=== PATIENT | female | born 1955 | race Caucasian/White ===

== ENCOUNTER 2022-09-13 06:55 | Outpatient (OUT) | payer MEDICARE, SELFPAY ==
[2022-09-13 07:42] LABS: Phosphorus 3.3 mg/dL (2.6-4.7); Uric Acid 5.7 mg/dL (2.6-6.0)
[2022-09-13 09:46] LABS: Estimated Average Glucose 105 mg/dL; Glycohemoglobin A1C 5.3 % (4.5-6.2)
[2022-09-16 12:10] LABS: BKV DNA, Quant PCR, Plasma Negative (Negative)
[2022-09-17 04:07] LABS: Tacrolimus (FK506), Blood 4.3 ng/mL (2.0-20.0)
== END 2022-09-13 06:56 ==
LOC: LAB 07:01
PROVIDERS: PCP Internal Medicine; Visit Provider Internal Medicine Nephrology
DX: Z94.0 Kidney transplant status (principal)
CPT/HCPCS: 36415; 80197; 83036; 84100; 84550; 87799

== ENCOUNTER 2022-10-09 06:40 | Outpatient (OUT) | payer MEDICARE, SELFPAY ==
[2022-10-09 07:08] LABS: Basophils Percent Auto 0.1 % (0.2-2.0); Eosinophils Absolute Auto 0.1 10^3/uL (0.0-0.7); Eosinophils Percent Auto 1.1 % (0.9-7.0); Hematocrit 47.3 % (36.0-48.0); Hemoglobin 15.6 g/dL (12.0-16.0); Immature Granulocytes Abs Auto 0.04 10^3/uL (0.00-0.03); Immature Granulocytes Pct Auto 0.5 % (0.0-0.5); Lymphocytes Absolute Auto 1.1 10^3/uL (1.2-3.8); Lymphocytes Percent Auto 12.5 % (20.5-60.0); Mean Corpuscular Volume 93.8 fL (81.0-99.0); Monocytes Absolute Auto 1.1 10^3/uL (0.3-0.8); Monocytes Percent Auto 12.8 % (1.7-12.0); Neutrophils Absolute Auto 6.1 10^3/uL (1.4-6.5); Platelet Count 214 10^3/uL (150-450); Red Blood Count 5.04 10^6/uL (4.20-5.40); Red Cell Distribution Width 14.8 % (11.0-15.0); White Blood Count 8.4 10^3/uL (4.0-11.0)
[2022-10-09 07:18] LABS: Alanine Aminotransferase 21 U/L (14-59); Albumin Globulin Ratio 1.1; Albumin Level 3.8 g/dL (3.4-5.0); Alkaline Phosphatase 143 U/L (46-116); Aspartate Amino Transferase 11 U/L (15-37); BUN Creatinine Ratio 14.9; Bilirubin Direct 0.1 mg/dL (0.0-0.2); Bilirubin Total 0.8 mg/dL (0.2-1.0); Calcium 9.5 mg/dL (8.5-10.1); Carbon Dioxide 28.3 mmol/L (21.0-32.0); Chloride 105 mmol/L (98-107); Estimated GFR (African America >60 (>=60); Estimated GFR (Non-African Ame 60 (>=60); Globulin 3.5 g/dL; Glucose 105 mg/dL (74-106); Phosphorus 3.3 mg/dL (2.6-4.7); Potassium 4.3 mmol/L (3.5-5.1); Sodium 141 mmol/L (136-145); Total Protein 7.3 g/dL (6.4-8.2)
== END 2022-10-09 06:41 | disposition home or self-care (01) ==
LOC: LAB 06:43
PROVIDERS: PCP Internal Medicine
DX: Z48.298 Encounter for aftercare following other organ transplant (principal); Z94.0 Kidney transplant status
CPT/HCPCS: 36415; 80053; 80076; 83735; 84100; 85025

== ENCOUNTER 2022-11-06 06:39 | Outpatient (OUT) | payer MEDICARE, SELFPAY ==
[2022-11-06 07:06] LABS: Basophils Percent Auto 0.3 % (0.2-2.0); Eosinophils Absolute Auto 0.1 10^3/uL (0.0-0.7); Immature Granulocytes Abs Auto 0.01 10^3/uL (0.00-0.03); Immature Granulocytes Pct Auto 0.1 % (0.0-0.5); Lymphocytes Absolute Auto 1.2 10^3/uL (1.2-3.8); Lymphocytes Percent Auto 16.2 % (20.5-60.0); Mean Corpuscular HGB Conc 32.6 g/dL (29.9-35.2); Mean Corpuscular Hemoglobin 30.6 pg (26.7-34.0); Mean Corpuscular Volume 93.9 fL (81.0-99.0); Mean Platelet Volume 11.4 fL (9.5-13.5); Monocytes Absolute Auto 0.9 10^3/uL (0.3-0.8); Monocytes Percent Auto 12.3 % (1.7-12.0); Neutrophils Absolute Auto 4.9 10^3/uL (1.4-6.5); Neutrophils Percent Auto 69.1 % (43.0-75.0); Platelet Count 182 10^3/uL (150-450); Red Cell Distribution Width 14.3 % (11.0-15.0); White Blood Count 7.2 10^3/uL (4.0-11.0)
[2022-11-06 07:27] LABS: Alanine Aminotransferase 17 U/L (14-59); Albumin Globulin Ratio 1.1; Albumin Level 3.7 g/dL (3.4-5.0); Alkaline Phosphatase 138 U/L (46-116); Anion Gap 11.5; Aspartate Amino Transferase 12 U/L (15-37); BUN Creatinine Ratio 17.4; Bilirubin Direct 0.2 mg/dL (0.0-0.2); Bilirubin Total 0.7 mg/dL (0.2-1.0); Calcium 9.3 mg/dL (8.5-10.1); Carbon Dioxide 27.5 mmol/L (21.0-32.0); Chloride 105 mmol/L (98-107); Estimated GFR (African America >60 (>=60); Estimated GFR (Non-African Ame >60 (>=60); Globulin 3.5 g/dL; Glucose 99 mg/dL (74-106); Phosphorus 3.6 mg/dL (2.6-4.7); Sodium 140 mmol/L (136-145); Total Protein 7.2 g/dL (6.4-8.2)
== END 2022-11-06 06:40 | disposition home or self-care (01) ==
LOC: LAB 06:43
PROVIDERS: PCP Internal Medicine; Visit Provider Internal Medicine Nephrology
DX: Z94.0 Kidney transplant status (principal)
CPT/HCPCS: 36415; 80053; 80076; 83735; 84100; 85025

== ENCOUNTER 2022-12-13 06:38 | Outpatient (OUT) | payer MEDICARE, SELFPAY ==
[2022-12-13 07:20] LABS: Basophils Percent Auto 0.3 % (0.2-2.0); Eosinophils Absolute Auto 0.2 10^3/uL (0.0-0.7); Eosinophils Percent Auto 2.6 % (0.9-7.0); Hematocrit 46.2 % (36.0-48.0); Hemoglobin 14.7 g/dL (12.0-16.0); Immature Granulocytes Abs Auto 0.01 10^3/uL (0.00-0.03); Immature Granulocytes Pct Auto 0.2 % (0.0-0.5); Lymphocytes Absolute Auto 1.5 10^3/uL (1.2-3.8); Lymphocytes Percent Auto 22.5 % (20.5-60.0); Mean Corpuscular HGB Conc 31.8 g/dL (29.9-35.2); Mean Corpuscular Hemoglobin 30.8 pg (26.7-34.0); Mean Corpuscular Volume 96.9 fL (81.0-99.0); Mean Platelet Volume 11.6 fL (9.5-13.5); Monocytes Absolute Auto 0.8 10^3/uL (0.3-0.8); Monocytes Percent Auto 11.4 % (1.7-12.0); Neutrophils Absolute Auto 4.1 10^3/uL (1.4-6.5); Platelet Count 200 10^3/uL (150-450); Red Blood Count 4.77 10^6/uL (4.20-5.40); Red Cell Distribution Width 14.4 % (11.0-15.0); White Blood Count 6.6 10^3/uL (4.0-11.0)
[2022-12-13 08:21] LABS: Estimated Average Glucose 108 mg/dL; Glycohemoglobin A1C 5.4 % (4.5-6.2)
[2022-12-13 09:02] LABS: Alanine Aminotransferase 19 U/L (14-59); Albumin Globulin Ratio 1.1; Albumin Level 3.7 g/dL (3.4-5.0); Alkaline Phosphatase 117 U/L (46-116); Anion Gap 11.9; Aspartate Amino Transferase <5 U/L (15-37); BUN Creatinine Ratio 24.5; Bilirubin Direct 0.1 mg/dL (0.0-0.2); Bilirubin Total 0.5 mg/dL (0.2-1.0); Calcium 9.2 mg/dL (8.5-10.1); Carbon Dioxide 27.8 mmol/L (21.0-32.0); Chloride 106 mmol/L (98-107); Chol HDL Ratio 2.5; Cholesterol 130 mg/dL (<=200); Estimated GFR (African America >60 (>=60); Estimated GFR (Non-African Ame 60 (>=60); Globulin 3.4 g/dL; Glucose 90 mg/dL (74-106); HDL Cholesterol 51 mg/dL (40-60); LDL Cholesterol Calculated 62.8 mg/dL; Magnesium 1.7 mg/dL (1.8-2.4); Phosphorus 3.9 mg/dL (2.6-4.7); Potassium 3.7 mmol/L (3.5-5.1); Sodium 142 mmol/L (136-145); Total Protein 7.1 g/dL (6.4-8.2); Triglycerides 81 mg/dL (<=150); Uric Acid 5.3 mg/dL (2.6-6.0); VLDL CHOLESTEROL 16.2 mg/dL
[2022-12-16 11:09] LABS: Tacrolimus (FK506), Blood 3.8 ng/mL (2.0-20.0)
== END 2022-12-13 06:39 | disposition home or self-care (01) ==
LOC: LAB 06:42
PROVIDERS: PCP Internal Medicine
DX: Z48.298 Encounter for aftercare following other organ transplant (principal); Z94.0 Kidney transplant status; Z79.899 Other long term (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 therapy
CPT/HCPCS: 36415; 80053; 80061; 80076; 80197; 83036; 83735; 84100; 84550; 85025; 87799

== ENCOUNTER 2022-12-18 06:41 | Outpatient (OUT) | payer MEDICARE, SELFPAY ==
[2022-12-20 16:08] LABS: BKV DNA, Quant PCR, Plasma Negative (Negative)
== END 2022-12-18 06:42 | disposition home or self-care (01) ==
LOC: LAB 06:41
PROVIDERS: PCP Internal Medicine
DX: Z48.298 Encounter for aftercare following other organ transplant (principal); Z94.0 Kidney transplant status; Z79.899 Other long term (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 therapy
CPT/HCPCS: 36415; 87799

== ENCOUNTER 2023-01-13 06:43 | Outpatient (OUT) | payer MEDICARE, SELFPAY ==
[2023-01-13 06:59] LABS: Basophils Percent Auto 0.3 % (0.2-2.0); Eosinophils Absolute Auto 0.3 10^3/uL (0.0-0.7); Hematocrit 42.5 % (36.0-48.0); Hemoglobin 13.9 g/dL (12.0-16.0); Immature Granulocytes Abs Auto 0.02 10^3/uL (0.00-0.03); Immature Granulocytes Pct Auto 0.3 % (0.0-0.5); Lymphocytes Absolute Auto 1.3 10^3/uL (1.2-3.8); Lymphocytes Percent Auto 19.8 % (20.5-60.0); Mean Corpuscular HGB Conc 32.7 g/dL (29.9-35.2); Mean Corpuscular Volume 94.9 fL (81.0-99.0); Mean Platelet Volume 11.4 fL (9.5-13.5); Monocytes Absolute Auto 0.9 10^3/uL (0.3-0.8); Monocytes Percent Auto 14.2 % (1.7-12.0); Neutrophils Absolute Auto 3.9 10^3/uL (1.4-6.5); Neutrophils Percent Auto 61.4 % (43.0-75.0); Platelet Count 189 10^3/uL (150-450); Red Blood Count 4.48 10^6/uL (4.20-5.40); Red Cell Distribution Width 14.4 % (11.0-15.0); White Blood Count 6.3 10^3/uL (4.0-11.0)
[2023-01-13 07:59] LABS: Estimated Average Glucose 108 mg/dL; Glycohemoglobin A1C 5.4 % (4.5-6.2)
[2023-01-13 08:48] LABS: Alanine Aminotransferase 24 U/L (14-59); Albumin Globulin Ratio 1.1; Albumin Level 3.6 g/dL (3.4-5.0); Alkaline Phosphatase 140 U/L (46-116); Anion Gap 11.9; Aspartate Amino Transferase 16 U/L (15-37); BUN Creatinine Ratio 26.8; Bilirubin Direct 0.1 mg/dL (0.0-0.2); Bilirubin Total 0.4 mg/dL (0.2-1.0); Calcium 9.5 mg/dL (8.5-10.1); Carbon Dioxide 28.9 mmol/L (21.0-32.0); Chloride 105 mmol/L (98-107); Chol HDL Ratio 2.7; Cholesterol 138 mg/dL (<=200); Estimated GFR (African America >60 (>=60); Estimated GFR (Non-African Ame >60 (>=60); Globulin 3.3 g/dL; Glucose 87 mg/dL (74-106); HDL Cholesterol 52 mg/dL (40-60); LDL Cholesterol Calculated 68.2 mg/dL; Magnesium 1.8 mg/dL (1.8-2.4); Phosphorus 3.7 mg/dL (2.6-4.7); Potassium 3.8 mmol/L (3.5-5.1); Sodium 142 mmol/L (136-145); Total Protein 6.9 g/dL (6.4-8.2); Triglycerides 89 mg/dL (<=150); Uric Acid 4.8 mg/dL (2.6-6.0); VLDL CHOLESTEROL 17.8 mg/dL
[2023-01-15 07:08] LABS: Tacrolimus (FK506), Blood 3.6 ng/mL (2.0-20.0)
[2023-01-15 16:11] LABS: BKV DNA, Quant PCR, Plasma Negative (Negative)
== END 2023-01-13 06:44 | disposition home or self-care (01) ==
LOC: LAB 06:45
PROVIDERS: PCP Internal Medicine
DX: Z48.298 Encounter for aftercare following other organ transplant (principal); Z79.899 Other long term (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 therapy; Z94.0 Kidney transplant status
CPT/HCPCS: 36415; 80053; 80061; 80076; 80197; 83036; 83735; 84100; 84550; 85025; 87799

== ENCOUNTER 2023-02-07 06:37 | Outpatient (OUT) | payer MEDICARE, SELFPAY ==
[2023-02-07 07:28] LABS: Basophils Percent Auto 0.1 % (0.2-2.0); Eosinophils Absolute Auto 0.1 10^3/uL (0.0-0.7); Eosinophils Percent Auto 1.6 % (0.9-7.0); Hematocrit 44.7 % (36.0-48.0); Hemoglobin 14.1 g/dL (12.0-16.0); Immature Granulocytes Abs Auto 0.01 10^3/uL (0.00-0.03); Immature Granulocytes Pct Auto 0.1 % (0.0-0.5); Lymphocytes Absolute Auto 1.1 10^3/uL (1.2-3.8); Lymphocytes Percent Auto 14.1 % (20.5-60.0); Mean Corpuscular HGB Conc 31.5 g/dL (29.9-35.2); Mean Corpuscular Hemoglobin 30.3 pg (26.7-34.0); Mean Corpuscular Volume 96.1 fL (81.0-99.0); Mean Platelet Volume 11.8 fL (9.5-13.5); Monocytes Absolute Auto 0.8 10^3/uL (0.3-0.8); Monocytes Percent Auto 9.9 % (1.7-12.0); Neutrophils Absolute Auto 5.9 10^3/uL (1.4-6.5); Neutrophils Percent Auto 74.2 % (43.0-75.0); Platelet Count 207 10^3/uL (150-450); Red Blood Count 4.65 10^6/uL (4.20-5.40); Red Cell Distribution Width 14.5 % (11.0-15.0)
[2023-02-07 09:22] LABS: Estimated Average Glucose 105 mg/dL; Glycohemoglobin A1C 5.3 % (4.5-6.2)
[2023-02-07 09:24] LABS: Alanine Aminotransferase 10 U/L (14-59); Albumin Level 3.8 g/dL (3.4-5.0); Alkaline Phosphatase 140 U/L (46-116); Anion Gap 9.1; Aspartate Amino Transferase 7 U/L (15-37); BUN Creatinine Ratio 18.9; Bilirubin Direct 0.1 mg/dL (0.0-0.2); Bilirubin Total 0.7 mg/dL (0.2-1.0); Calcium 9.5 mg/dL (8.5-10.1); Carbon Dioxide 28.8 mmol/L (21.0-32.0); Chloride 103 mmol/L (98-107); Estimated GFR (African America >60 (>=60); Estimated GFR (Non-African Ame 59 (>=60); Glucose 93 mg/dL (74-106); Magnesium 1.8 mg/dL (1.8-2.4); Phosphorus 3.4 mg/dL (2.6-4.7); Potassium 3.9 mmol/L (3.5-5.1); Sodium 137 mmol/L (136-145); Total Protein 7.2 g/dL (6.4-8.2); Uric Acid 5.3 mg/dL (2.6-6.0)
[2023-02-07 09:25] LABS: Albumin Globulin Ratio 1.1; Chol HDL Ratio 2.3; Cholesterol 129 mg/dL (<=200); Globulin 3.4 g/dL; HDL Cholesterol 56 mg/dL (40-60); Triglycerides 60 mg/dL (<=150)
[2023-02-10 11:08] LABS: BKV DNA, Quant PCR, Plasma Negative (Negative)
[2023-02-10 14:08] LABS: Tacrolimus (FK506), Blood 4.3 ng/mL (2.0-20.0)
== END 2023-02-07 06:38 | disposition home or self-care (01) ==
LOC: LAB 06:40
PROVIDERS: PCP Internal Medicine
DX: Z48.298 Encounter for aftercare following other organ transplant (principal); Z94.0 Kidney transplant status; Z79.899 Other long term (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 therapy
CPT/HCPCS: 36415; 80053; 80061; 80076; 80197; 83036; 83735; 84100; 84550; 85025; 87799

== ENCOUNTER 2023-03-12 06:36 | Outpatient (OUT) | payer MEDICARE, SELFPAY ==
[2023-03-12 07:29] LABS: Basophils Percent Auto 0.2 % (0.2-2.0); Eosinophils Absolute Auto 0.1 10^3/uL (0.0-0.7); Eosinophils Percent Auto 2.2 % (0.9-7.0); Hematocrit 45.2 % (36.0-48.0); Hemoglobin 14.4 g/dL (12.0-16.0); Immature Granulocytes Abs Auto 0.02 10^3/uL (0.00-0.03); Immature Granulocytes Pct Auto 0.4 % (0.0-0.5); Lymphocytes Percent Auto 17.5 % (20.5-60.0); Mean Corpuscular HGB Conc 31.9 g/dL (29.9-35.2); Mean Corpuscular Hemoglobin 30.8 pg (26.7-34.0); Mean Corpuscular Volume 96.8 fL (81.0-99.0); Mean Platelet Volume 10.9 fL (9.5-13.5); Monocytes Absolute Auto 0.6 10^3/uL (0.3-0.8); Monocytes Percent Auto 11.4 % (1.7-12.0); Neutrophils Absolute Auto 3.8 10^3/uL (1.4-6.5); Neutrophils Percent Auto 68.3 % (43.0-75.0); Platelet Count 286 10^3/uL (150-450); Red Blood Count 4.67 10^6/uL (4.20-5.40); Red Cell Distribution Width 15.4 % (11.0-15.0); White Blood Count 5.5 10^3/uL (4.0-11.0)
[2023-03-12 09:02] LABS: Alanine Aminotransferase 19 U/L (14-59); Albumin Level 3.6 g/dL (3.4-5.0); Alkaline Phosphatase 136 U/L (46-116); Anion Gap 14.4; Aspartate Amino Transferase 13 U/L (15-37); BUN Creatinine Ratio 20.9; Bilirubin Direct 0.1 mg/dL (0.0-0.2); Bilirubin Total 0.6 mg/dL (0.2-1.0); Calcium 9.1 mg/dL (8.5-10.1); Carbon Dioxide 28.8 mmol/L (21.0-32.0); Chloride 104 mmol/L (98-107); Chol HDL Ratio 2.5; Cholesterol 126 mg/dL (<=200); Estimated GFR (African America >60 (>=60); Estimated GFR (Non-African Ame >60 (>=60); Globulin 3.5 g/dL; Glucose 90 mg/dL (74-106); HDL Cholesterol 51 mg/dL (40-60); Magnesium 1.9 mg/dL (1.8-2.4); Phosphorus 3.5 mg/dL (2.6-4.7); Potassium 4.2 mmol/L (3.5-5.1); Sodium 143 mmol/L (136-145); Total Protein 7.1 g/dL (6.4-8.2); Triglycerides 95 mg/dL (<=150); Uric Acid 4.7 mg/dL (2.6-6.0)
[2023-03-12 10:12] LABS: Estimated Average Glucose 117 mg/dL; Glycohemoglobin A1C 5.7 % (4.5-6.2)
[2023-03-14 12:10] LABS: BKV DNA, Quant PCR, Plasma Negative (Negative)
[2023-03-16 09:12] LABS: Tacrolimus (FK506), Blood 4.3 ng/mL (2.0-20.0)
== END 2023-03-12 06:37 | disposition home or self-care (01) ==
LOC: LAB 06:40
PROVIDERS: PCP Internal Medicine
DX: Z48.298 Encounter for aftercare following other organ transplant (principal); Z79.899 Other long term (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 therapy; Z94.0 Kidney transplant status
CPT/HCPCS: 36415; 80053; 80061; 80197; 82248; 83036; 83735; 84100; 84550; 85025; 87799

== ENCOUNTER 2023-04-21 06:38 | Outpatient (OUT) | payer MEDICARE, SELFPAY ==
--- OUTSIDE RECORDS SUMMARY | 2023-04-21 06:43 | XMS_ITS | CCD ---
Author Name Unknown Address [id number] [place] [address] Organization [facility] Care Team Providers Care Sales Representative [employer] Name Role Phone LA JOLLA DINKAR Unavailable Unavailable LA JOLLA, DINKAR Unavailable Unavailable CARROLL, RAMON Unavailable Unavailable CARROLL, RAMON Unavailable Unavailable RATNAM, ROSALINDA Unavailable Unavailable RATNAM, ROSALINDA Unavailable Unavailable SELF, REFERRED Unavailable Unavailable CARROLL, RAMON Unavailable Unavailable RATNAM, ROSALINDA Unavailable Unavailable RATNAM, ROSALINDA Unavailable Unavailable CARROLL, RAMON Unavailable Unavailable CARROLL, RAMON Unavailable Unavailable RATNAM, ROSALINDA Unavailable Unavailable RATNAM, ROSALINDA Unavailable Unavailable CARROLL, RAMON Unavailable Unavailable CARROLL, RAMON Unavailable Unavailable RATNAM, ROSALINDA Unavailable Unavailable RATNAM, ROSALINDA Unavailable Unavailable CARROLL, RAMON Unavailable Unavailable CARROLL, RAMON Unavailable Unavailable RATNAM, ROSALINDA Unavailable Unavailable RATNAM, ROSALINDA Unavailable Unavailable CARROLL, RAMON Unavailable Unavailable CARROLL, RAMON Unavailable Unavailable RATNAM, ROSALINDA Unavailable Unavailable RATNAM, ROSALINDA Unavailable Unavailable RATNAM, ROSALINDA Unavailable Unavailable CARROLL, RAMON Unavailable Unavailable RATNAM, ROSALINDA Unavailable Unavailable RATNAM, ROSALINDA Unavailable Unavailable CARROLL, RAMON Unavailable Unavailable CARROLL, RAMON Unavailable Unavailable RATNAM, ROSALINDA Unavailable Unavailable RATNAM, ROSALINDA Unavailable Unavailable RATNAM, ROSALINDA Unavailable Unavailable CARROLL, RAMON Unavailable Unavailable RATNAM, ROSALINDA Unavailable Unavailable RATNAM, ROSALINDA Unavailable Unavailable CARROLL, RAMON Unavailable Unavailable CARROLL, RAMON Unavailable Unavailable RATNAM, ROSALINDA Unavailable Unavailable RATNAM, ROSALINDA Unavailable Unavailable RATNAM, ROSALINDA Unavailable Unavailable CARROLL, RAMON Unavailable Unavailable VIRGLI HAYNES Unavailable Unavailable VIRGIL HAYNES Unavailable Unavailable VIRGIL HAYNES Unavailable Unavailable CARROLL, RAMON Unavailable Unavailable Martha Guevara Unavailable Cathy Bella Unavailable JENIFFER, DR VIRGIL Palma Consulting Unavailable NADERERadha, DR VIRIGL Palma Attending Unavailable CARROLL, DR DARBY Primary Care Unavailable NADERER, DR VIRGIL Palma Admitting Unavailable MARY, VITO Consulting Unavailable WARD, JOSE F Townsend Consulting Unavailable ROWENA ., ISATU Consulting Unavailable MIESHA, MAYRA Consulting Unavailable ROWENA ., ISATU Attending Unavailable ROWENA ., ISATU Admitting Unavailable CARROLL, DR DARBY Primary Care Unavailable ZIEBER, DR BRITTON Garcia Consulting Unavailable ITA ., HYACINTH Consulting Unavailable ROWENA ., ISATU Consulting Unavailable CARROLL, DR DARBY Admitting Unavailable CARROLL, DR DARBY Primary Care Unavailable CARROLL, DR DARBY Consulting Unavailable CARROLL, DR DARBY Attending Unavailable ZIEBER, DR BRITTON Garcia Consulting Unavailable CARROLL, DR DARBY Primary Care Unavailable MISC, DR OBRIEN Consulting Unavailable MISC, DR OBRIEN Attending Unavailable MISC, DR OBRIEN Admitting Unavailable LA JOLLA, DR CONNORS Consulting Unavailable CARROLL, DR DARBY Primary Care Unavailable MISC, DR OBRIEN Attending Unavailable MISC, DR OBRIEN Admitting Unavailable MISC, DR OBRIEN Attending Unavailable MISC, DR OBRIEN Admitting Unavailable MISC, DR OBRIEN Consulting Unavailable CARROLL, DR DARBY Primary Care Unavailable LA JOLLA, DR CONNORS Consulting Unavailable LA JOLLA, DR CONNORS Attending Unavailable CARROLL, DR DARBY Primary Care Unavailable LA JOLLA, DR CONNORS Admitting Unavailable LA JOLLA, DR CONNORS Attending Unavailable CARROLL, DR DARBY Primary Care Unavailable LA JOLLA, DR CONNORS Admitting Unavailable LA JOLLA, DR CONNORS Consulting Unavailable MISC, DR OBRIEN Attending Unavailable MISC, DR OBRIEN Admitting Unavailable CARROLL, DR DARBY Primary Care Unavailable MISC, DR OBRIEN Consulting Unavailable MISC, DR OBRIEN Consulting Unavailable MISC, DOCTOR Attending Unavailable MISC, DR OBRIEN Admitting Unavailable CARROLL, DR DARBY Primary Care Unavailable MISC, DR OBRIEN Attending Unavailable MISC, DR OBRIEN Admitting Unavailable MISC, DR OBRIEN Consulting Unavailable CARROLL, DR DARBY Primary Care Unavailable MISC, DR OBRIEN Attending Unavailable MISC, DR OBRIEN Admitting Unavailable MISC, DR OBRIEN Consulting Unavailable CARROLL, DR DARBY Primary Care Unavailable LA JOLLA, DR CONNORS Consulting Unavailable LA JOLLA, DR CONNORS Attending Unavailable CARROLL, DR DARBY Primary Care Unavailable LA JOLLA, DR CONNORS Admitting Unavailable MISC, DR OBRIEN Attending Unavailable MISC, DR OBRIEN Admitting Unavailable MISC, DR OBRIEN Consulting Unavailable CARROLL, DR DARBY Primary Care Unavailable MISC, DR OBRIEN Attending Unavailable [facility] [place], DR OBRIEN Admitting Unavailable [facility] [place], DR OBRIEN Consulting Unavailable UZMA, DR DARBY Primary Care Unavailable LA JOLLA, DR CONNORS Consulting Unavailable LA JOLLA, DR CONNORS Attending Unavailable LA JOLLA, DR CONNORS Admitting Unavailable UZMA, DR DARBY Primary Care Unavailable VIRGIL HAYNES Attending Unavailable MIKE, VIRGIL Attending Unavailable VIRGIL HAYNES Attending Unavailable RAMON CARROLL Attending Unavailable JOHN PADILLA Attending Unavailable JOHN PADILLA Attending Unavailable Medications Current Medications Medication Drug Class(es) Dates Sig (Normalized) Sig (Original) [id number] 200 actuat albuterol 0.09 mg/actuat metered dose inhaler (1 source) beta2-Adrenergic Agonist Start: 12-28-2021 take 2 puff(s) by inhalation four times daily as needed Albuterol Sulfate HFA 108 (90 Base) MCG/ACT 2 puffs Inhalation 4 times a day prn 30 Nov, 2021 Active amLODIPine (9 sources) Dihydropyridine Calcium Channel Eleonora amLODIPine Besyl ate Active Calcium (8 sources) Phosphate Binder, Calcium Calcium 600 600 MG Orally once a day for 30 day(s) Active calcium carbonate 1500 mg oral tablet (1 source) Calcium 600 600 MG Orally once a day for 30 day(s) Active cetirizine hydrochloride 10 mg oral tablet (1 source) Histamine-1 Receptor Antagonist Start: 10-28-19 22 take 1 tablet by mouth once daily Cetirizine HCl 10 MG 1 tablet Orally Once a day for 14 days Sep, Active ciprofloxacin 500 mg oral tablet (3 sources) Quinolone Antimicrobial Start: 08-15-19 22 take 1 tablet by mouth every twelve hours Cipro 500 MG 1 tablet Orally every 12 hrs for 5 day(s) July, Active dextromethorphan hydrobromide 1.5 mg/ml / pyrilamine maleate 1.5 mg/ml oral solution (1 source) Uncompetitive L-djisre-C-aspartate Receptor Antagonist, Sigma-1 Agonist Start: 03-27-20 23 take 10 mL by mouth every eight hours [place] DM 7.5-7.5 MG/5ML 10 mL Orally every 8 hours for 5 days Feb, Active ergocalciferol 1.25 mg oral capsule (9 sources) Provitamin D2 Compound Start: 06-27-19 take 1 capsule by mouth every week Vitamin D (Ergocalciferol) 97108 UNIT 1 capsule Orally Once a Week for 90 days May, Active Start: 06-27-2011 everolimus (6 sources) Kinase Inhibitor, mTOR Inhibitor Immunosuppressant Zortress Act romelia ferrous sulfate 325 mg oral tablet (9 sources) take 1 tablet by mouth every twenty-four hours Ferrous Sulfate 325 (65 Fe) MG 1 tablet Orally Once a day for 30 day(s) Active take 1 tablet by mouth once joselito y Ferrous Sulfate 325 (65 Fe) MG 1 tablet Orally Once a day for 30 day(s) Active Fish Oils (9 sources) take 1 capsule by mouth once onofre ly Fish Oil 1000 MG 1 capsule Orally Once a day Active Magnesium Oxide (9 sources) Magnesium Oxide Active methylPREDNISolone 4 mg oral tablet (5 sources) Corticosteroid Start: 01-12-2022 methylPREDNISo lone 4 MG as directed Orally for daily dose take half with breakfast, half with dinner for 6 days Dec, Active Start: 10-07-2020 Medrol (Kyle) 4 MG as directed Orally for daily dose take half with breakfast half with dinner for 6 days Sep, Active Multi For Her 1 (9 sources) Multi For Her 1 as directed Orally 1 for 90 days Active phenazopyridine hydrochloride 200 mg oral tablet (3 sources) Start: 08-14-2021 take 1 tablet by mouth every eight hours Pyridium 200 MG 1 tablet after meals Orally Three times a day for 2 day(s) July, Active Potassium (9 sources) take 1 tablet by mouth once joselito y Potassium 610 MG 1 tablet Orally Once a day Active Spironolactone (9 sources) Aldosterone Antagonist Spironolactone A ctive Tacrolimus (9 sources) Calcineurin Inhibitor Immunosuppressant Tacrolimus Activ e triamcinolone acetonide 1 mg/ml topical cream (1 source) Corticosteroid Start: 10-27-2021 Triamcinolone Acetonide 0.1 % 1 application to affected area Externally Three times a day for 14 days Sep, Active valACYclovir 1000 mg oral tablet (3 sources) Herpesvirus Nucleoside Analog DNA Polymerase Inhibitor, Herpes Simplex Virus Nucleoside Analog DNA Polymerase Inhibitor, Herpes Zoster Virus Nucleoside Analog DNA Polymerase Inhibitor Start: 10-07-2020 take 2 tablets by mouth every twelve hours valACYclovir HCl 1 GM 2 tablet Orally twice a day for 1 days Sep, Active Vitamin B-12 500 MCG (7 sources) take 1 tablet by mouth once daily Vitamin B-12 500 MCG 1 tablet Orally Once a day for 30 day(s) Active vitamin b12 0.5 mg oral tablet (2 sources) Vitamin B12 take 1 tablet by mouth every twenty-four hours Vitamin B-12 500 MCG 1 tablet Orally Once a day for 30 day(s) Active take 1 tablet by mouth every twe nty-four hours Completed/Discontinued Medications Medication Drug Class(es) Dates Sig (Normalized) Sig (Original) azithromycin 250 mg oral tablet (2 sources) Macrolide Antimicrobial Start: 09-21-2022 Azithromycin 250 MG 2 tablet on the first day, then 1 tablet daily for 4 days Orally Once a day for 5 day(s) Aug, Not-Taking/PRN Start: 09-21-2022 benzonatate 200 mg oral capsule (5 sources) Non-narcotic Antitussive Start: 09-21-2022 take 1 capsule by mouth every eight hours Benzonatate 200 MG 1 capsule Orally Three times a day Aug, Not-Taking/PRN Start: 12-25-2021 take 1 capsule by mo [facility] every eight hours Tessalon Perles 100 MG 1 capsule as needed Orally Three times a day for 7 days Nov, Active predniSONE 20 mg oral tablet (3 sources) Start: 09-21-2022 take 1 tablet by mouth every twelve hours predniSONE 20 MG 1 tablet Orally bid for 5 day(s) Aug, Not-Taking/PRN Start: 12-28-2021 take 1 tablet by tremaine every twelve hours predniSONE 20 MG 1 tablet Orally 2 times a day for 5 day(s) Nov, Active Problems Active Problems Problem Classification Problem Date Documented Date Episodic/Chronic Anxiety disorders (3 sources) Mixed anxiety and depressive disorder; Translations: [Depression with anxiety] Chronic Chronic kidney disease (16 sources) Anemia in chronic kidney disease; Translations: [Anemia in Chronic Kidney Disease] Onset: 2 Chronic Chronic obstructive pulmonary disease and bronchiectasis (2 sources) Bronchitis, not specified as acute or chronic Episodic Diseases of mouth; excluding dental (1 source) Other lesions of oral mucosa Episodic Disorders of lipid metabolism (1 source) Hyperlipidemia, unspecified; Translations: [HYPERLIPIDEMIA UNSPECIFIED] Onset: 2 Chronic Essential hypertension (4 sources) Hypertensive disorder; Translations: [HTN] Onset: 2 Chronic Fluid and electrolyte disorders (3 sources) Hyperosmolality and or hypernatremia; Translations: [Hyperosmolality and/or hypernatremia] Episodic Genitourinary congenital anomalies (5 sources) Multiple congenital cysts of kidney; Translations: [Polycystic kidney, unspecified type] Onset: 2 Chronic Hypertension with complications and secondary hypertension (2 sources) Hypertension secondary to other renal disorders; Translations: [Hypertension secondary to other renal disorders] Onset: 2 Chronic Immunizations and screening for infectious disease (6 sources) Contact with and (suspected) exposure to other viral communicable diseases; Translations: [Contact with and (suspected) exposure to other viral communicable diseases] Episodic Other aftercare (8 sources) Encounter for aftercare following kidney transplant; Translations: [ENCOUNTER FOR AFTERCARE 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 Other diseases of kidney and ureters (3 sources) Hyperparathyroidism due to renal insufficiency; 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, secondary, 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 Other diseases of kidney and ureters (2 sources) Other specified disorders of kidney and ureter; Translations: [Other specified disorders of kidney and ureter] Onset: 2 Chronic Other nutritional; endocrine; and metabolic disorders (3 sources) Hyperphosphatemia; Translations: [Hyperphosphatemia] Chronic Other screening for suspected conditions (not mental disorders or infectious disease) (4 sources) Encounter for screening mammogram for malignant neoplasm of breast; Translations: [ENC SCR MAMMO MALIG NEOPLASM BREAST] Onset: 3 Episodic Other upper respiratory disease (1 source) Dysphonia Episodic Other upper respiratory infections (9 sources) Acute upper respiratory infection, unspecified; Translations: [Acute pharyngitis, unspecified] Onset: 2 Episodic Pneumonia (except that caused by tuberculosis or sexually transmitted disease) (1 source) Pneumonia (except that caused by tuberculosis or sexually transmitted disease); Translations: [PNEUMONIA D/T CORONAVIRUS DIS 2019] Onset: 2 Unclassified (2 sources) Unknown / UNK(Unknown) Onset: 7 Unclassified (3 sources) COUGH, UNSPECIFIED; Translations: [COUGH, UNSPECIFIED] Onset: 2 Unclassified (2 sources) Kidney Follow-up; Translations: [Kidney Follow-up] Onset: 3 Unclassified (1 source) Immunodeficiency due to drugs; Translations: [Immunodeficiency due to drugs] Onset: 2 Viral infection (1 source) COVID-19; Translations: [COVID-19] Onset: 2 Past or Other Problems Problem Classification Problem Date Documented Date Episodic/Chronic Genitourinary symptoms and ill-defined conditions (10 sources) Hematuria, unspecified; Translations: [Dysuria] Onset: 12-31-2017 Resolved: 08-14-2021 Episodic Other aftercare (1 source) Encounter for therapeutic drug level monitoring; Translations: [ENCOUNTER FOR THERAPEUTIC DRUG LEVEL MONITORING] Onset: 03-27-2017 Episodic Other aftercare (4 sources) Other fci (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 therapy; Translations: [OTHER LARD MIXER (CURRENT) DRUG THERAPY] Onset: 02-26-2017 Episodic Other skin disorders (1 source) Rash and other nonspecific skin eruption Onset: 10-27-2021 Resolved: 10-27-2021 Episodic Unclassified (1 source) COUGH, UNSPECIFIED; Translations: [COUGH, UNSPECIFIED] Onset: 01-03-2022 Unclassified (1 source) Immunodeficiency due to drugs; Translations: [Immunodeficiency due to drugs] Onset: 03-19-2022 Unclassified (1 source) Contact with and (suspected) exposure to covid-19 Z20.822 Urinary tract infections (3 sources) Urinary tract infection, site not specified Onset: 08-14-2021 Resolved: 08-14-2021 Episodic Results Test Name Value Interpretation Reference Range Facility COVID/FLU/RSV RT-PCRon 03-27 SARS-CoV-2 (COVID-19) RNA MURALI+probe Ql (Unsp spec) Negative [facility] Other COVID/FLU/RSV RT-PCR Negative [facility] Other Quick Strepon 03-27-2023 S. pyogenes Org specific cx Ql (Throat) Negative [facility] Other Quick Strep [facility] Other 29on 03-17-2023 29 Addended by: TOSHA LAGOS on: 03/17/2023 11:44 AM Modules accepted: Orders [facility] Follow-Upon 03-17-2023 Follow-Up [id number] Tanika Grimm 1955 F Date Provider Department Center 03/17/2023 124-MIKEVIRGIL TXP None No family history on file Level of Service:40537 RI OFFICE/OUTPATIENT ESTABLISHED LOW MDM 20 MIN Reason for Visit and Comments: Kidney Follow-up [[id number]] - Patient would like to know if Virgil would prescribe depression medication. [facility] 36on 01-31-2023 36 Transplant Pharmacis t - Drug Information Patient's called to inquiring about the use of paroxetine 10 mg daily. No interactions with IS medications. Recommended to monitor bruising and bleeding with concomitant fish oil use. CrCl ~60 mL/min, no renal dosage adjustment necessary. Recommended to monitor for weight gain as Paxil has a higher weight gain potential than other SSRI. Counseled spouse to monitor patient over the first two weeks of taking the medication as it is expected to take two weeks for the medication to start full effect. Recommended that if stopping the medication to let PCP know due to high potential for withdrawal and possible need for taper. The patient's verbalized understanding. [employer] added medication to med list. The patient's stated patient will be getting a DEXA scan and recommended to not have calcium 3 days before. Reviewed medication list for any products containing calcium - no medications found. No other questions or concerns at this time. [facility] Telephoneon 01-31-2023 Telephone [id number] Tanika Grimm 1955 F Date Provider Department Center 01/31/2023 3915-JAH PAGE TXP None No family history on file Reason for Visit and Comments: Transplant Pharmacist - Drug Information [[id number]] [facility] Documentationon 10-09-2022 Documentation [id number] Tanika Grimm 1955 F Date Provider Department Center 10/09/2022 3193-KATY CRUZ TXP None No family history on file [facility] 29on 09-17-2022 29 Addended by: FERNANDA NAGEL on: 09/17/2022 12:16 PM Modules accepted: Orders Normal [facility] CREATININE, URINE, RANDOMon 09-17-2022 Creatinine (U) [Mass/Vol] 252.0 mg/dL Normal 26-299 [facility] Comment on above: Performed By: #### L [id number] ####[facility] ([facility])[address] [place] [address] Follow-Upon 09-17-2022 Follow-Up [id number] Tanika Grimm 1955 Date Provider Department Center 09/17/2022 124-VIRGIL HAYNES TXP None No family history on file Level of Service:61456 RI OFFICE/OUTPATIENT ESTABLISHED LOW MDM 20-29 MIN Reason for Visit and Comments: Kidney Follow-up [] - Patient has no new concerns Normal [facility] PROTEIN, URINE, RANDOMon Protein (U) [Mass/Vol] 29.5 mg/dL Normal [facility] Comment on above: Result Comment: Ther e are no established reference values for random urine specimens. Performed By: #### L [id number] ####[facility] ([facility])[address] [place] [address] Documentationon 08-15-2022 Documentation [id number] Tanika Grimm 1955 Provider Department Center 08/15/2022 3193-KATY CRUZ TXP None No family history on file Normal [facility] BILIRUBIN CONJUGATED (DIRECT )on 08-12-2022 BILI, CONJUGATED 0.1 mg/dL Normal 0.0-0.2 [facility] Comment on above: Performed By: #### D DAVIDSON, MG, PHOS, CMP, LIPID, URIC #### [facility] [address] [address] [address] Sarmad Patino GLYCOHEMOGLOBIN A1Con 2022 ADA RECOMMENDATION SEE BELOW Normal [facility] Comment on above: Result Comment: ADA RECOMMENDED LIMIT 4.0 - 6.0 ADA THERAPEUTIC TARGET < 7.0 ACTION SUGGESTED > 7.0 Performed By: #### D DAVIDSON, MG, PHOS, CMP, LIPID, URIC #### [facility] [address] [address] [address] Sarmad Patino Glucose [Mass/Vol] 108 mg/dL Normal [facility] Comment on above: Performed By: #### D DAVIDSON, MG, PHOS, CMP, LIPID, URIC #### [facility] [address] [place] [address] Dr. Sarmad Patino HbA1c (Bld) [Mass fraction] 5.4 % Normal 4.5-6.2 [facility] Comment on above: Performed By: #### D DAVIDSON, MG, PHOS, CMP, LIPID, URIC #### [facility] [address] [place] [address] Dr. Sarmad Patino MAGNESIUMon 08-12-2022 Magnesium [Mass/Vol] 1.7 mg/dL Critically low 1.8-2.4 [facility] Comment on above: Performed By: #### D DAVIDSON, MG, PHOS, CMP, LIPID, URIC #### [facility] [address] [place] [address] Dr. Sarmad Patino PHOSPHORUSon 08-12-2022 Phosphate [Mass/Vol] 3.9 mg/dL Normal 2.6-4.7 [facility] Comment on above: Performed By: #### U MAXI, LIPID, MG, CMP, DBIL, PHOS #### [facility] [address] [place] [address] Dr. Sarmad Patino PROF 14(COMP METB)on 023 Albumin [Mass/Vol] 3.9 g/dL Normal 3.4-5.0 [facility] Comment on above: Performed By: #### D DAVIDSON, MG, PHOS, CMP, LIPID, URIC #### [facility] [address] [place] [address] Dr. Sarmad Patino Albumin/Globulin [Mass ratio] 1.2 {ratio} Normal [facility] Comment on above: Performed By: #### D DAVIDSON, MG, PHOS, CMP, LIPID, URIC #### [facility] [address] [address] [address] Sarmad Patino ALP [Catalytic activity/Vol] 126 U/L Critically high 46-116 [facility] Comment on above: Performed By: #### D DAVIDSON, MG, PHOS, CMP, LIPID, URIC #### [facility] [address] [address] [address] Sarmad Patino ALT [Catalytic activity/Vol] 18 U/L Normal 14-59 [facility] Comment on above: Performed By: #### D DAVIDSON, MG, PHOS, CMP, LIPID, URIC #### [facility] [address] [address] [address] Sarmad Patino Anion gap [Moles/Vol] 10.4 mmol/L Normal [facility] Comment on above: Performed By: #### D DAVIDSON, MG, PHOS, CMP, LIPID, URIC #### [facility] [address] [place] [address] Dr. Sarmad Patino AST [Catalytic activity/Vol] 14 U/L Critically low 15-37 [facility] Comment on above: Performed By: #### D DAVIDSON, MG, PHOS, CMP, LIPID, URIC #### [facility] [address] [address] [address] Sarmad Patino Bilirubin [Mass/Vol] 0.7 mg/dL Normal 0.2-1.0 [facility] Comment on above: Performed By: #### D DAVIDSON, MG, PHOS, CMP, LIPID, URIC #### [facility] [address] [place] [address] Dr. Sarmad Patino Calcium [Mass/Vol] 9.8 mg/dL Normal 8.5-10.1 [facility] Comment on above: Performed By: #### D DAVIDSON, MG, PHOS, CMP, LIPID, URIC #### [facility] [address] [place] [address] Dr. Sarmad Patino Chloride [Moles/Vol] 106 mmol/L Normal 98-107 [facility] Comment on above: Performed By: #### D DAVIDSON, MG, PHOS, CMP, LIPID, URIC #### [facility] [address] [address] [address] Sarmad Patino CO2 [Moles/Vol] 32.1 mmol/L Critically high 21.0-32.0 [facility] Comment on above: Performed By: #### D DAVIDSON, MG, PHOS, CMP, LIPID, URIC #### [facility] [address] [address] [address] Sarmad Patino Creatinine [Mass/Vol] 0.92 mg/dL Normal 0.55-1.02 [facility] Comment on above: Performed By: #### D DAVIDSON, MG, PHOS, CMP, LIPID, URIC #### [facility] [address] [place] [address] Dr. Sarmad Patino EGFR-AF NIUEAN >60 Normal >=60 [facility] Comment on above: Performed By: #### D DAVIDSON, MG, PHOS, CMP, LIPID, URIC #### [facility] [address] [place] [address] Dr. Sarmad Patino EGFR-NON AF NIUEAN >60 Normal >=60 [facility] Comment on above: Performed By: #### D DAVIDSON, MG, PHOS, CMP, LIPID, URIC #### [facility] [address] [place] [address] Dr. Sarmad Patino Globulin (S) [Mass/Vol] 3.3 g/dL Normal [facility] Comment on above: Performed By: #### D DAVIDSON, MG, PHOS, CMP, LIPID, URIC #### [facility] [address] [place] [address] Dr. Sarmad Patino Glucose [Mass/Vol] 102 mg/dL Normal 74-106 [facility] Comment on above: Performed By: #### D DAVIDSON, MG, PHOS, CMP, LIPID, URIC #### [facility] [address] [place] [address] Dr. Sarmad Patino Potassium [Moles/Vol] 4.5 mmol/L Normal 3.5-5.1 [facility] Comment on above: Performed By: #### D DAVIDSON, MG, PHOS, CMP, LIPID, URIC #### [facility] [address] [place] [address] Dr. Sarmad Patino Protein [Mass/Vol] 7.2 g/dL Normal 6.4-8.2 [facility] Comment on above: Performed By: #### D DAVIDSON, MG, PHOS, CMP, LIPID, URIC #### [facility] [address] [address] [address] Sarmad Patino Sodium [Moles/Vol] 144 mmol/L Normal 136-145 [facility] Comment on above: Performed By: #### D DAVIDSON, MG, PHOS, CMP, LIPID, URIC #### [facility] [address] [address] [address] Sarmad Patino Urea nitrogen [Mass/Vol] 20.0 mg/dL Critically high 7.0-18.0 [facility] Comment on above: Performed By: #### D DAVIDSON, MG, PHOS, CMP, LIPID, URIC #### [facility] [address] [address] [address] Sarmad Patino Urea nitrogen/Creatinine [Mass ratio] 21.7 mg/mg Normal [facility] Comment on above: Performed By: #### D DAVIDSON, MG, PHOS, CMP, LIPID, URIC #### [facility] [address] [address] [address] Sarmad Patino URIC ACID SERUMon 08-12-2022 Urate [Mass/Vol] 5.2 mg/dL Normal 2.6-6.0 [facility] Comment on above: Performed By: #### D DAVIDSON, MG, PHOS, CMP, LIPID, URIC #### [facility] [address] [address] [address] Sarmad Patino MG MAMM SCREEN 3D DAVIDSON CADon 07-23-2022 MG MAMM SCREEN 3D DAVIDSON CAD Patient: TANIKA GRIMMKarlie Exam Date: 07/23/2022 : 1955 Gender:F Ordering : DR RAMON CARROLL M.D. Admission #: [id number] Family : Order #: [id number] CLICK HERE TO VIEW EXAM RADIOLOGY REPORT PROCEDURE: MAMMOGRAM SCREENING 3D BILATERAL CAD COMPARISON: MG MAMM SCREEN 3D DAVIDSON CAD, 04/02/2021. MG MAMM SCREEN DAVIDSON W CAD, 02/15/2020. MG MAMM SCREEN DAVIDSON W CAD, 08/25/2018. DIGITIZED_MAMMO, 05/18/2009. INDICATIONS: Screening for malignant neoplasm of breast Calculator Name NCI Breast Cancer Risk Assessment Tool 5 Year Breast Cancer Risk 1.80% Lifetime Breast Cancer Risk 6.90% Personal Breast Cancer No Personal Ovarian Cancer No Treatments None Family Cancers None LOCATION: [facility] BREAST COMPOSITION: Extremely dense, which lowers the sensitivity of mammography. FINDINGS: DIAGNOSTIC CATEGORY 1--NEGATIVE. RIGHT BREAST: No significant suspicious finding. No significant change has occurred. LEFT BREAST: No significant suspicious finding. No significant change has occurred. RECOMMENDATIONS: ROUTINE MAMMOGRAM AND CLINICAL EVALUATION IN 12 MONTHS. PLEASE NOTE: A NORMAL MAMMOGRAM DOES NOT EXCLUDE THE POSSIBILITY OF BREAST CANCER. A CLINICALLY SUSPICIOUS PALPABLE LUMP SHOULD BE BIOPSIED. Dictated by: Britton Bernard M.D. on 07/23/2022 at 16:36 Approved by: Britton Bernard M.D. on 07/23/2022 at 16:59 Normal [facility] FK506 (TACROLIMUS) WHOLE BLO ODon 07-10-2022 Tacrolimus (FK506), Blood 3.8 ng/mL Normal 2.0-20.0 [facility] Comment on above: Result Comment: Trou gh (immediately following transplant) 15.0 . Trough (steady state, 2 weeks or more after transplant): 3.0 - 8.0 . Performed by LC-MS/MS technology. Performed By: #### D DAVIDSON, MG, PHOS, CMP, LIPID, URIC #### [facility] [address] [address] [address] Sarmad Patino BILIRUBIN CONJUGATED (DIRECT )on 07-08-2022 BILI, CONJUGATED 0.1 mg/dL Normal 0.0-0.2 [facility] Comment on above: Performed By: #### U MAXI, LIPID, MG, CMP, DBIL, PHOS #### [facility] [address] [address] [address] Sarmad Patino GLYCOHEMOGLOBIN A1Con 2022 ADA RECOMMENDATION SEE BELOW Normal [facility] Comment on above: Result Comment: ADA RECOMMENDED LIMIT 4.0 - 6.0 ADA THERAPEUTIC TARGET < 7.0 ACTION SUGGESTED > 7.0 Performed By: #### D DAVIDSON, MG, PHOS, CMP, LIPID, URIC #### [facility] [address] [address] [address] Sarmad Patino Glucose [Mass/Vol] 105 mg/dL Normal [facility] Comment on above: Performed By: #### D DAVIDSON, MG, PHOS, CMP, LIPID, URIC #### [facility] [address] [address] [address] Sarmad Patino HbA1c (Bld) [Mass fraction] 5.3 % Normal 4.5-6.2 [facility] Comment on above: Performed By: #### D DAVIDSON, MG, PHOS, CMP, LIPID, URIC #### [facility] [address] [place] [address] Dr. Sarmad Patino MAGNESIUMon 07-08-2022 Magnesium [Mass/Vol] 1.8 mg/dL Normal 1.8-2.4 [facility] Comment on above: Performed By: #### U MAXI, LIPID, MG, CMP, DBIL, PHOS #### [facility] [address] [place] [address] Dr. Sarmad Patino PHOSPHORUSon 07-08-2022 Phosphate [Mass/Vol] 3.8 mg/dL Normal 2.6-4.7 [facility] Comment on above: Performed By: #### U MAXI, LIPID, MG, CMP, DBIL, PHOS #### [facility] [address] [place] [address] Dr. Sarmad Patino PROF 14(COMP METB)on 023 Albumin [Mass/Vol] 3.7 g/dL Normal 3.4-5.0 [facility] Comment on above: Performed By: #### U MAXI, LIPID, MG, CMP, DBIL, PHOS #### [facility] [address] [place] [address] Dr. Sarmad Patino Albumin/Globulin [Mass ratio] 1.1 {ratio} Normal [facility] Comment on above: Performed By: #### U MAXI, LIPID, MG, CMP, DBIL, PHOS #### [facility] [address] [place] [address] Dr. Sarmad Patino ALP [Catalytic activity/Vol] 124 U/L Critically high 46-116 [facility] Comment on above: Performed By: #### U MAXI, LIPID, MG, CMP, DBIL, PHOS #### [facility] [address] [address] [address] Sarmad Patino ALT [Catalytic activity/Vol] 20 U/L Normal 14-59 [facility] Comment on above: Performed By: #### U MAXI, LIPID, MG, CMP, DBIL, PHOS #### [facility] [address] [address] [address] Sarmad Patino Anion gap [Moles/Vol] 11.5 mmol/L Normal [facility] Comment on above: Performed By: #### U MAXI, LIPID, MG, CMP, DBIL, PHOS #### [facility] [address] [place] [address] Dr. Sarmad Patino AST [Catalytic activity/Vol] 12 U/L Critically low 15-37 [facility] Comment on above: Performed By: #### U MAXI, LIPID, MG, CMP, DBIL, PHOS #### [facility] [address] [address] [address] Sarmad Patino Bilirubin [Mass/Vol] 0.5 mg/dL Normal 0.2-1.0 [facility] Comment on above: Performed By: #### U MAXI, LIPID, MG, CMP, DBIL, PHOS #### [facility] [address] [address] [address] Sarmad Patino Calcium [Mass/Vol] 9.6 mg/dL Normal 8.5-10.1 [facility] Comment on above: Performed By: #### U MAXI, LIPID, MG, CMP, DBIL, PHOS #### [facility] [address] [address] [address] Sarmad Patino Chloride [Moles/Vol] 106 mmol/L Normal 98-107 [facility] Comment on above: Performed By: #### U MAXI, LIPID, MG, CMP, DBIL, PHOS #### [facility] [address] [address] [address] Sarmad Patino CO2 [Moles/Vol] 29.7 mmol/L Normal 21.0-32.0 [facility] Comment on above: Performed By: #### U MAXI, LIPID, MG, CMP, DBIL, PHOS #### [facility] [address] [place] [address] Dr. Sarmad Patino Creatinine [Mass/Vol] 0.77 mg/dL Normal 0.55-1.02 [facility] Comment on above: Performed By: #### U MAXI, LIPID, MG, CMP, DBIL, PHOS #### [facility] [address] [place] [address] Dr. Sarmad Patino EGFR-AF NIUEAN >60 Normal >=60 [facility] Comment on above: Performed By: #### U MAXI, LIPID, MG, CMP, DBIL, PHOS #### [facility] [address] [place] [address] Dr. Sarmad Patino EGFR-NON AF NIUEAN >60 Normal >=60 [facility] Comment on above: Performed By: #### U MAXI, LIPID, MG, CMP, DBIL, PHOS #### [facility] [address] [place] [address] Dr. Sarmad Patino Globulin (S) [Mass/Vol] 3.4 g/dL Normal [facility] Comment on above: Performed By: #### U MAXI, LIPID, MG, CMP, DBIL, PHOS #### [facility] [address] [place] [address] Dr. Sarmad Patino Glucose [Mass/Vol] 97 mg/dL Normal 74-106 [facility] Comment on above: Performed By: #### U MAXI, LIPID, MG, CMP, DBIL, PHOS #### [facility] [address] [place] [address] Dr. Sarmad Patino Potassium [Moles/Vol] 4.2 mmol/L Normal 3.5-5.1 [facility] Comment on above: Performed By: #### U MAXI, LIPID, MG, CMP, DBIL, PHOS #### [facility] [address] [address] [address] Sarmad Patino Protein [Mass/Vol] 7.1 g/dL Normal 6.4-8.2 [facility] Comment on above: Performed By: #### U MAXI, LIPID, MG, CMP, DBIL, PHOS #### [facility] [address] [address] [address] Sarmad Patino Sodium [Moles/Vol] 143 mmol/L Normal 136-145 [facility] Comment on above: Performed By: #### U MAXI, LIPID, MG, CMP, DBIL, PHOS #### [facility] [address] [place] [address] Dr. Sarmad Patino Urea nitrogen [Mass/Vol] 26.0 mg/dL Critically high 7.0-18.0 [facility] Comment on above: Performed By: #### U MAXI, LIPID, MG, CMP, DBIL, PHOS #### [facility] [address] [place] [address] Dr. Sarmad Patino Urea nitrogen/Creatinine [Mass ratio] 33.8 mg/mg Normal [facility] Comment on above: Performed By: #### U MAXI, LIPID, MG, CMP, DBIL, PHOS #### [facility] [address] [place] [address] Dr. Sarmad Patino URIC ACID SERUMon 07-08-2022 Urate [Mass/Vol] 4.7 mg/dL Normal 2.6-6.0 [facility] Comment on above: Performed By: #### U MAXI, LIPID, MG, CMP, DBIL, PHOS #### [facility] [address] [place] [address] Dr. Sarmad Patino FK506 (TACROLIMUS) WHOLE BLO ODon 06-13-2022 Tacrolimus (FK506), Blood 3.0 ng/mL Normal 2.0-20.0 [facility] Comment on above: Result Comment: Trou gh (immediately following transplant) 15.0 . Trough (steady state, 2 weeks or more after transplant): 3.0 - 8.0 . Performed by LC-MS/MS technology. Performed By: #### D DAVIDSON, MG, PHOS, CMP, LIPID, URIC #### [facility] [address] [place] [address] Dr. Sarmad Patino BK VIRUS PCR QUANTon 023 BKV DNA QUANT PCR PLASMA Negative Normal Negative [facility] Comment on above: Result Comment: No B K DNA detected. . The linear range of the assay is 22 - 100,000,000 IU/mL. Performed By: #### B KVIRUS #### [facility] [address] [place] [address] Dr. Sarmad Patino Log10 BKV DNA Plasma Normal [facility] Comment on above: Performed By: #### B KVIRUS #### [facility] [address] [place] [address] Dr. Sarmad Patino BILIRUBIN CONJUGATED (DIRECT )on 06-10-2022 BILI, CONJUGATED 0.1 mg/dL Normal 0.0-0.2 [facility] Comment on above: Performed By: #### U MAXI, LIPID, MG, CMP, DBIL, PHOS #### [facility] [address] [place] [address] Dr. Sarmad Patino GLYCOHEMOGLOBIN A1Con 2022 ADA RECOMMENDATION SEE BELOW Normal [facility] Comment on above: Result Comment: ADA RECOMMENDED LIMIT 4.0 - 6.0 ADA THERAPEUTIC TARGET < 7.0 ACTION SUGGESTED > 7.0 Performed By: #### D DAVIDSON, MG, PHOS, CMP, LIPID, URIC #### [facility] [address] [place] [address] Dr. Sarmad Patino Glucose [Mass/Vol] 114 mg/dL Normal [facility] Comment on above: Performed By: #### D DAVIDSON, MG, PHOS, CMP, LIPID, URIC #### [facility] [address] [place] [address] Dr. Sarmad Patino HbA1c (Bld) [Mass fraction] 5.6 % Normal 4.5-6.2 [facility] Comment on above: Performed By: #### D DAVIDSON, MG, PHOS, CMP, LIPID, URIC #### [facility] [address] [place] [address] Dr. Sarmad Patino MAGNESIUMon 06-10-2022 Magnesium [Mass/Vol] 1.6 mg/dL Critically low 1.8-2.4 [facility] Comment on above: Performed By: #### U MAXI, LIPID, MG, CMP, DBIL, PHOS #### [facility] [address] [place] [address] Dr. Sarmad Patino PROF 14(COMP METB)on 023 Albumin [Mass/Vol] 3.7 g/dL Normal 3.4-5.0 [facility] Comment on above: Performed By: #### U MAXI, LIPID, MG, CMP, DBIL, PHOS #### [facility] [address] [place] [address] Dr. Sarmad Patino Albumin/Globulin [Mass ratio] 1.1 {ratio} Normal [facility] Comment on above: Performed By: #### U MAXI, LIPID, MG, CMP, DBIL, PHOS #### [facility] [address] [place] [address] Dr. Sarmad Patino ALP [Catalytic activity/Vol] 142 U/L Critically high 46-116 [facility] Comment on above: Performed By: #### U MAXI, LIPID, MG, CMP, DBIL, PHOS #### [facility] [address] [place] [address] Dr. Sarmad Patino ALT [Catalytic activity/Vol] 29 U/L Normal 14-59 [facility] Comment on above: Performed By: #### U MAXI, LIPID, MG, CMP, DBIL, PHOS #### [facility] [address] [place] [address] Dr. Samrad Patino Anion gap [Moles/Vol] 11.1 mmol/L Normal [facility] Comment on above: Performed By: #### U MAXI, LIPID, MG, CMP, DBIL, PHOS #### [facility] [address] [place] [address] Dr. Sarmad Patino AST [Catalytic activity/Vol] 19 U/L Normal 15-37 [facility] Comment on above: Performed By: #### U MAXI, LIPID, MG, CMP, DBIL, PHOS #### [facility] [address] [address] [address] Sarmad Patino Bilirubin [Mass/Vol] 0.6 mg/dL Normal 0.2-1.0 [facility] Comment on above: Performed By: #### U MAXI, LIPID, MG, CMP, DBIL, PHOS #### [facility] [address] [address] [address] Sarmad Patino Calcium [Mass/Vol] 9.8 mg/dL Normal 8.5-10.1 [facility] Comment on above: Performed By: #### U MAXI, LIPID, MG, CMP, DBIL, PHOS #### [facility] [address] [place] [address] Dr. Sarmad Patino Chloride [Moles/Vol] 103 mmol/L Normal 98-107 [facility] Comment on above: Performed By: #### U MAXI, LIPID, MG, CMP, DBIL, PHOS #### [facility] [address] [place] [address] Dr. Sarmad Patino CO2 [Moles/Vol] 30.7 mmol/L Normal 21.0-32.0 [facility] Comment on above: Performed By: #### U MAXI, LIPID, MG, CMP, DBIL, PHOS #### [facility] [address] [place] [address] Dr. Sarmad Patino Creatinine [Mass/Vol] 0.79 mg/dL Normal 0.55-1.02 [facility] Comment on above: Performed By: #### U MAXI, LIPID, MG, CMP, DBIL, PHOS #### [facility] [address] [place] [address] Dr. Sarmad Patino EGFR-AF NIUEAN >60 Normal >=60 [facility] Comment on above: Performed By: #### U MAXI, LIPID, MG, CMP, DBIL, PHOS #### [facility] [address] [place] [address] Dr. Sarmad Patino EGFR-NON AF NIUEAN >60 Normal >=60 [facility] Comment on above: Performed By: #### U MAXI, LIPID, MG, CMP, DBIL, PHOS #### [facility] [address] [address] [address] Sarmad Patino Globulin (S) [Mass/Vol] 3.4 g/dL Normal [facility] Comment on above: Performed By: #### U MAXI, LIPID, MG, CMP, DBIL, PHOS #### [facility] [address] [address] [address] Sarmad Patino Glucose [Mass/Vol] 94 mg/dL Normal 74-106 [facility] Comment on above: Performed By: #### U MAXI, LIPID, MG, CMP, DBIL, PHOS #### [facility] [address] [place] [address] Dr. Sarmad Patino Potassium [Moles/Vol] 3.8 mmol/L Normal 3.5-5.1 [facility] Comment on above: Performed By: #### U MAXI, LIPID, MG, CMP, DBIL, PHOS #### [facility] [address] [place] [address] Dr. Sarmad Patino Protein [Mass/Vol] 7.1 g/dL Normal 6.4-8.2 [facility] Comment on above: Performed By: #### U AMXI, LIPID, MG, CMP, DBIL, PHOS #### [facility] [address] [place] [address] Dr. Sarmad Patino Sodium [Moles/Vol] 141 mmol/L Normal 136-145 [facility] Comment on above: Performed By: #### U MAXI, LIPID, MG, CMP, DBIL, PHOS #### [facility] [address] [place] [address] Dr. Sarmad Patino Urea nitrogen [Mass/Vol] 17.0 mg/dL Normal 7.0-18.0 [facility] Comment on above: Performed By: #### U MAXI, LIPID, MG, CMP, DBIL, PHOS #### [facility] [address] [place] [address] Dr. Sarmad Patino Urea nitrogen/Creatinine [Mass ratio] 21.5 mg/mg Normal [facility] Comment on above: Performed By: #### U MAXI, LIPID, MG, CMP, DBIL, PHOS #### [facility] [address] [address] [address] Sarmad Patino URIC ACID SERUMon 06-10-2022 Urate [Mass/Vol] 5.1 mg/dL Normal 2.6-6.0 [facility] Comment on above: Performed By: #### U MAXI, LIPID, MG, CMP, DBIL, PHOS #### [facility] [address] [address] [address] Sarmad Patino BK VIRUS PCR QUANTon 023 BKV DNA QUANT PCR PLASMA Negative Normal Negative [facility] Comment on above: Result Comment: No B K DNA detected. . The linear range of the assay is 22 - 100,000,000 IU/mL. Performed By: #### U MAXI, LIPID, MG, CMP, DBIL, PHOS #### [facility] [address] [place] [address] Dr. Sarmad Patino Log10 BKV DNA Plasma Normal [facility] Comment on above: Performed By: #### U MAXI, LIPID, MG, CMP, DBIL, PHOS #### [facility] [address] [place] [address] Dr. Sarmad Patino Documentationon 05-13-2022 Documentation [id number] Tanika Grimm 1955 F Date Provider Department Center 05/13/2022 ANEL HELLER None No family history on file Normal [facility] FK506 (TACROLIMUS) WHOLE BLO ODon 05-13-2022 Tacrolimus (FK506), Blood 4.1 ng/mL Normal 2.0-20.0 [facility] Comment on above: Result Comment: Trou gh (immediately following transplant) 15.0 . Trough (steady state, 2 weeks or more after transplant): 3.0 - 8.0 . Performed by LC-MS/MS technology. Performed By: #### U MAXI, LIPID, MG, CMP, DBIL, PHOS #### [facility] [address] [place] [address] Dr. Sarmad Patino BILIRUBIN CONJUGATED (DIRECT )on 05-10-2022 BILI, CONJUGATED 0.1 mg/dL Normal 0.0-0.2 [facility] Comment on above: Performed By: #### D DAVIDSON, MG, PHOS, CMP, LIPID, URIC #### [facility] [address] [address] [address] Sarmad Patino Documentationon 05-10-2022 Documentation [id number] Tanika Grimm 1955 F Date Provider Department Center 05/10/2022 JanetteRUTHHUBERTALBERTO TXGely None No family history on file Normal [facility] GLYCOHEMOGLOBIN A1Con 2022 ADA RECOMMENDATION SEE BELOW Normal [facility] Comment on above: Result Comment: ADA RECOMMENDED LIMIT 4.0 - 6.0 ADA THERAPEUTIC TARGET < 7.0 ACTION SUGGESTED > 7.0 Performed By: #### D DAVIDSON, MG, PHOS, CMP, LIPID, URIC #### [facility] [address] [place] [address] Dr. Sarmad Patino Glucose [Mass/Vol] 108 mg/dL Normal [facility] Comment on above: Performed By: #### D DAVIDSON, MG, PHOS, CMP, LIPID, URIC #### [facility] [address] [address] [address] Sarmad Patino HbA1c (Bld) [Mass fraction] 5.4 % Normal 4.5-6.2 [facility] Comment on above: Performed By: #### D DAVIDSON, MG, PHOS, CMP, LIPID, URIC #### [facility] [address] [place] [address] Dr. Sarmad Patino MAGNESIUMon 05-10-2022 Magnesium [Mass/Vol] 1.9 mg/dL Normal 1.8-2.4 [facility] Comment on above: Performed By: #### U MAXI, LIPID, MG, CMP, DBIL, PHOS #### [facility] [address] [place] [address] Dr. Sarmad Patino PROF 14(COMP METB)on 023 Albumin [Mass/Vol] 3.9 g/dL Normal 3.4-5.0 [facility] Comment on above: Performed By: #### D DAVIDSON, MG, PHOS, CMP, LIPID, URIC #### [facility] [address] [address] [address] Sarmad Patino Albumin/Globulin [Mass ratio] 1.2 {ratio} Normal [facility] Comment on above: Performed By: #### D DAVIDSON, MG, PHOS, CMP, LIPID, URIC #### [facility] [address] [place] [address] Dr. Sarmad Patino ALP [Catalytic activity/Vol] 114 U/L Normal 46-116 [facility] Comment on above: Performed By: #### D DAVIDSON, MG, PHOS, CMP, LIPID, URIC #### [facility] [address] [place] [address] Dr. Sarmad Patino ALT [Catalytic activity/Vol] 18 U/L Normal 14-59 [facility] Comment on above: Performed By: #### D DAVIDSON, MG, PHOS, CMP, LIPID, URIC #### [facility] [address] [place] [address] Dr. Sarmad Patino Anion gap [Moles/Vol] 15.9 mmol/L Normal [facility] Comment on above: Performed By: #### D DAVIDSON, MG, PHOS, CMP, LIPID, URIC #### [facility] [address] [place] [address] Dr. Sarmad Patino AST [Catalytic activity/Vol] 17 U/L Normal 15-37 [facility] Comment on above: Performed By: #### D DAVIDSON, MG, PHOS, CMP, LIPID, URIC #### [facility] [address] [place] [address] Dr. Sarmad Patino Bilirubin [Mass/Vol] 0.4 mg/dL Normal 0.2-1.0 [facility] Comment on above: Performed By: #### D DAVIDSON, MG, PHOS, CMP, LIPID, URIC #### [facility] [address] [place] [address] Dr. Sarmad Patino Calcium [Mass/Vol] 9.8 mg/dL Normal 8.5-10.1 [facility] Comment on above: Performed By: #### D DAVIDSON, MG, PHOS, CMP, LIPID, URIC #### [facility] [address] [address] [address] Sarmad Patino Chloride [Moles/Vol] 103 mmol/L Normal 98-107 [facility] Comment on above: Performed By: #### D DAVIDSON, MG, PHOS, CMP, LIPID, URIC #### [facility] [address] [address] [address] Sarmad Patino CO2 [Moles/Vol] 29.2 mmol/L Normal 21.0-32.0 [facility] Comment on above: Performed By: #### D DAVIDSON, MG, PHOS, CMP, LIPID, URIC #### [facility] [address] [place] [address] Dr. Sarmad Patino Creatinine [Mass/Vol] 0.74 mg/dL Normal 0.55-1.02 [facility] Comment on above: Performed By: #### D DAVIDSON, MG, PHOS, CMP, LIPID, URIC #### [facility] [address] [place] [address] Dr. Sarmad Patino EGFR-AF NIUEAN >60 Normal >=60 [facility] Comment on above: Performed By: #### D DAVIDSON, MG, PHOS, CMP, LIPID, URIC #### [facility] [address] [place] [address] Dr. Sarmad Patino EGFR-NON AF NIUEAN >60 Normal >=60 [facility] Comment on above: Performed By: #### D DAVIDSON, MG, PHOS, CMP, LIPID, URIC #### [facility] [address] [place] [address] Dr. Sarmad Patino Globulin (S) [Mass/Vol] 3.2 g/dL Normal [facility] Comment on above: Performed By: #### D DAVIDSON, MG, PHOS, CMP, LIPID, URIC #### [facility] [address] [place] [address] Dr. Sarmad Patino Glucose [Mass/Vol] 94 mg/dL Normal 74-106 [facility] Comment on above: Performed By: #### D DAVIDSON, MG, PHOS, CMP, LIPID, URIC #### [facility] [address] [place] [address] Dr. Sarmad Patino Potassium [Moles/Vol] 4.1 mmol/L Normal 3.5-5.1 [facility] Comment on above: Performed By: #### D DAVIDSON, MG, PHOS, CMP, LIPID, URIC #### [facility] [address] [place] [address] Dr. Sarmad Patino Protein [Mass/Vol] 7.1 g/dL Normal 6.4-8.2 [facility] Comment on above: Performed By: #### D DAVIDSON, MG, PHOS, CMP, LIPID, URIC #### [facility] Laboratory [address] [place] [address] Dr. Sarmad Patino Sodium [Moles/Vol] 144 mmol/L Normal 136-145 [facility] Comment on above: Performed By: #### D DAVIDSON, MG, PHOS, CMP, LIPID, URIC #### [facility] [address] [place] [address] Dr. Sarmad Patino Urea nitrogen [Mass/Vol] 18.0 mg/dL Normal 7.0-18.0 [facility] Comment on above: Performed By: #### D DAVIDSON, MG, PHOS, CMP, LIPID, URIC #### [facility] [address] [place] [address] Dr. Sarmad Patino Urea nitrogen/Creatinine [Mass ratio] 24.3 mg/mg Normal [facility] Comment on above: Performed By: #### D DAVIDSON, MG, PHOS, CMP, LIPID, URIC #### [facility] [address] [place] [address] Dr. Sarmad Patino URIC ACID SERUMon 05-10-2022 Urate [Mass/Vol] 5.1 mg/dL Normal 2.6-6.0 [facility] Comment on above: Performed By: #### U MAXI, LIPID, MG, CMP, DBIL, PHOS #### [facility] [address] [place] [address] Dr. Sarmad Patino Documentationon 04-17-2022 Documentation [id number] Tanika Grimm 1955 F Date Provider Department Center 04/17/2022 750-RUTH, TYMARA TXP None No family history on file Normal [facility] MYCOPHENOLIC ACIDon 04-17-19 Mycophenolic Acid 1.2 ug/mL Normal 1.0-3.5 [facility] Comment on above: Performed By: #### D DAVIDSON, MG, PHOS, CMP, LIPID, URIC #### [facility] [address] [address] [address] Sarmad Patino Mycophenolic Acid Glucuronide 37 ug/mL Normal 15-125 [facility] Comment on above: Result Comment: [facility] 's Reference Range: 35-100 mcg/mL. Performed By: #### D DAVIDSON, MG, PHOS, CMP, LIPID, URIC #### [facility] [address] [address] [address] Sarmad Patino Documentationon 04-12-2022 Documentation [id number] Tanika Grimm 1955 F Date Provider Department Center 04/12/2022 ANEL HELLER TXGely None No family history on file Normal [facility] FK506 (TACROLIMUS) WHOLE BLO ODon 04-10-2022 Tacrolimus (FK506), Blood 4.2 ng/mL Normal 2.0-20.0 [facility] Comment on above: Result Comment: Trou gh (immediately following transplant) 15.0 . Trough (steady state, 2 weeks or more after transplant): 3.0 - 8.0 . Performed by LC-MS/MS technology. Performed By: #### D DAVIDSON, MG, PHOS, CMP, LIPID, URIC #### [facility] [address] [place] [address] Dr. Sarmad Patino BILIRUBIN CONJUGATED (DIRECT )on 04-08-2022 BILI, CONJUGATED 0.1 mg/dL Normal 0.0-0.2 [facility] Comment on above: Performed By: #### U MAXI, LIPID, MG, CMP, DBIL, PHOS #### [facility] [address] [place] [address] Dr. Sarmad Patino CBC AUTO DIFFon 04-08-2022 BASO # 0.0 103/ul Normal 0.0-0.1 [facility] Comment on above: Performed By: #### D DAVIDSON, MG, PHOS, CMP, LIPID, URIC #### [facility] [address] [place] [address] Dr. Sarmad Patino Basophils/100 WBC (Bld) 0.3 % Normal 0.2-2.0 [facility] Comment on above: Performed By: #### D DAVIDSON, MG, PHOS, CMP, LIPID, URIC #### [facility] [address] [place] [address] Dr. Sarmad Patino EO # 0.1 103/ul Normal 0.0-0.7 [facility] Comment on above: Performed By: #### D DAVIDSON, MG, PHOS, CMP, LIPID, URIC #### [facility] [address] [place] [address] Dr. Sarmad Patino Eosinophils/100 WBC (Bld) 1.4 % Normal 0.9-7.0 [facility] Comment on above: Performed By: #### D DAVIDSON, MG, PHOS, CMP, LIPID, URIC #### [facility] [address] [place] [address] Dr. Sarmad Patino Erythrocyte distribution width (RBC) [Ratio] 15.8 % Critically high 11.0-15.0 [facility] Comment on above: Performed By: #### D DAVIDSON, MG, PHOS, CMP, LIPID, URIC #### [facility] [address] [place] [address] Dr. Sarmad Patino Hematocrit (Bld) [Volume fraction] 43.0 % Normal 36.0-48.0 [facility] Comment on above: Performed By: #### D DAVIDSON, MG, PHOS, CMP, LIPID, URIC #### [facility] [address] [place] [address] Dr. Sarmad Patino Hemoglobin (Bld) [Mass/Vol] 15.0 g/dL Normal 12.0-16.0 [facility] Comment on above: Performed By: #### D DAVIDSON, MG, PHOS, CMP, LIPID, URIC #### [facility] [address] [place] [address] Dr. Sarmad Patino IG # 0.01 10e3/ul Normal 0.00-0.03 [facility] Comment on above: Performed By: #### D DAVIDSON, MG, PHOS, CMP, LIPID, URIC #### [facility] [address] [place] [address] Dr. Sarmad Patino IG % 0.1 % Normal 0.0-0.5 [facility] Comment on above: Performed By: #### D DAVIDSON, MG, PHOS, CMP, LIPID, URIC #### [facility] [address] [place] [address] Dr. Sarmad Patnio LYMPH # 1.3 103/ul Normal 1.2-3.8 [facility] Comment on above: Performed By: #### D DAVIDSON, MG, PHOS, CMP, LIPID, URIC #### [facility] [address] [place] [address] Dr. Sarmad Patino Lymphocytes/100 WBC (Bld) 18.3 % Critically low 20.5-60.0 [facility] Comment on above: Performed By: #### D DAVIDSON, MG, PHOS, CMP, LIPID, URIC #### [facility] [address] [place] [address] Dr. Sarmad Patino MANUAL DIFF REQ NO Normal [facility] Comment on above: Performed By: #### D DAVIDSON, MG, PHOS, CMP, LIPID, URIC #### [facility] [address] [place] [address] Dr. Sarmad Patino MCH (RBC) [Entitic mass] 29.7 pg Normal 26.7-34.0 [facility] Comment on above: Performed By: #### D DAVIDSON, MG, PHOS, CMP, LIPID, URIC #### [facility] [address] [place] [address] Dr. Sarmad Patino MCHC (RBC) [Mass/Vol] 34.9 g/dL Normal 29.9-35.2 [facility] Comment on above: Performed By: #### D DAVIDSON, MG, PHOS, CMP, LIPID, URIC #### [facility] [address] [place] [address] Dr. Sarmad Patino MCV (RBC) [Entitic vol] 85.1 fL Normal 81.0-99.0 [facility] Comment on above: Performed By: #### D DAVIDSON, MG, PHOS, CMP, LIPID, URIC #### [facility] [address] [place] [address] Dr. Sarmad Patino MONO # 0.7 103/ul Normal 0.3-0.8 [facility] Comment on above: Performed By: #### D DAVIDSON, MG, PHOS, CMP, LIPID, URIC #### [facility] [address] [place] [address] Dr. Sarmad Patino Monocytes/100 WBC (Bld) 9.8 % Normal 1.7-12.0 [facility] Comment on above: Performed By: #### D DAVIDSON, MG, PHOS, CMP, LIPID, URIC #### [facility] [address] [place] [address] Dr. Sarmad Patino NEUT # 5.1 103/ul Normal 1.4-6.5 [facility] Comment on above: Performed By: #### D DAVIDSON, MG, PHOS, CMP, LIPID, URIC #### [facility] [address] [place] [address] Dr. Sarmad Patino Neutrophils/100 WBC (Bld) 70.1 % Normal 43.0-75.0 [facility] Comment on above: Performed By: #### D DAVIDSON, MG, PHOS, CMP, LIPID, URIC #### [facility] [address] [place] [address] Dr. Sarmad Patino Platelet mean volume (Bld) [Entitic vol] 10.4 fL Normal 9.5-13.5 [facility] Comment on above: Performed By: #### D DAVIDSON, MG, PHOS, CMP, LIPID, URIC #### [facility] [address] [place] [address] Dr. Sarmad Patino PLT 229 103/ul Normal 150-450 [facility] Comment on above: Performed By: #### D DAVIDSON, MG, PHOS, CMP, LIPID, URIC #### [facility] [address] [place] [address] Dr. Sarmad Patino RBC 5.05 106/ul Normal 4.20-5.40 [facility] Comment on above: Performed By: #### D DAVIDSON, MG, PHOS, CMP, LIPID, URIC #### [facility] [address] [address] [address] Sarmad Patino WBC 7.2 103/ul Normal 4.0-11.0 [facility] Comment on above: Performed By: #### D DAVIDSON, MG, PHOS, CMP, LIPID, URIC #### [facility] [address] [address] [address] Sarmad Patino LIPID PROFILEon 04-08-2022 CHOL-HDL RATIO NORM SEE BELOW Normal [facility] Comment on above: Result Comment: 3.3 - 4.4 LOW RISK 4.4 - 7.1 AVERAGE RISK 7.1 - 11.0 MODERATE RISK >11.0 HIGH RISK Performed By: #### U MAXI, LIPID, MG, CMP, DBIL, PHOS #### [facility] [address] [place] [address] Dr. Sarmad Patino Cholesterol [Mass/Vol] 134 mg/dL Normal <=200 [facility] Comment on above: Performed By: #### U MAXI, LIPID, MG, CMP, DBIL, PHOS #### [facility] [address] [address] [address] Sarmad Patino Cholesterol in HDL [Mass/Vol] 55 mg/dL Normal 40-60 [facility] Comment on above: Performed By: #### U MAXI, LIPID, MG, CMP, DBIL, PHOS #### [facility] [address] [address] [address] Sarmad Patino Cholesterol in LDL [Mass/Vol] 56.6 mg/dL Normal [facility] Comment on above: Performed By: #### U MAXI, LIPID, MG, CMP, DBIL, PHOS #### [facility] [address] [place] [address] Dr. Sarmad Patino Cholesterol.total/C holesterol in HDL [Mass ratio] 2.4 {ratio} Normal [facility] Comment on above: Performed By: #### U MAXI, LIPID, MG, CMP, DBIL, PHOS #### [facility] [address] [address] [address] Sarmad Patino HDL NORMAL > or = 60 mg/dl - LO W CARDIOVASCULAR RISK <40 mg/dl - HIGH CARDIOVASCULAR RISK Normal [facility] Comment on above: Performed By: #### U MAXI, LIPID, MG, CMP, DBIL, PHOS #### [facility] [address] [address] [address] Sarmad Patino LDL CALC NORMAL SEE BELOW Normal [facility] Comment on above: Result Comment: <100 mg/dl OPTIMAL 100 - 129 mg/dl NEAR OR ABOVE OPTIMAL 130 - 159 mg/dl BORDERLINE HIGH 160 - 189 mg/dl HIGH >190 mg/dl VERY HIGH Performed By: #### U MAXI, LIPID, MG, CMP, DBIL, PHOS #### [facility] [address] [place] [address] Dr. Sarmad Patino Triglyceride [Mass/Vol] 112 mg/dL Normal <=150 [facility] Comment on above: Performed By: #### U MAXI, LIPID, MG, CMP, DBIL, PHOS #### [facility] [address] [address] [address] Sarmad Patino VLDL CALC 22.4 mg/dL Normal [facility] Comment on above: Performed By: #### U MAXI, LIPID, MG, CMP, DBIL, PHOS #### [facility] [address] [place] [address] Dr. Sarmad Patino MAGNESIUMon 04-08-2022 Magnesium [Mass/Vol] 1.8 mg/dL Normal 1.8-2.4 [facility] Comment on above: Performed By: #### U MAXI, LIPID, MG, CMP, DBIL, PHOS #### [facility] [address] [address] [address] Sarmad Patino PHOSPHORUSon 04-08-2022 Phosphate [Mass/Vol] 3.9 mg/dL Normal 2.6-4.7 [facility] Comment on above: Performed By: #### U MAXI, LIPID, MG, CMP, DBIL, PHOS #### [facility] [address] [place] [address] Dr. Sarmad Patino PROF 14(COMP METB)on 023 Albumin [Mass/Vol] 4.0 g/dL Normal 3.4-5.0 [facility] Comment on above: Performed By: #### U MAXI, LIPID, MG, CMP, DBIL, PHOS #### [facility] [address] [place] [address] Dr. Sarmad Patino Albumin/Globulin [Mass ratio] 1.3 {ratio} Normal [facility] Comment on above: Performed By: #### U MAXI, LIPID, MG, CMP, DBIL, PHOS #### [facility] [address] [place] [address] Dr. Sarmad Patino ALP [Catalytic activity/Vol] 108 U/L Normal 46-116 [facility] Comment on above: Performed By: #### U MAXI, LIPID, MG, CMP, DBIL, PHOS #### [facility] [address] [place] [address] Dr. Sarmad Patino ALT [Catalytic activity/Vol] 15 U/L Normal 14-59 [facility] Comment on above: Performed By: #### U MAXI, LIPID, MG, CMP, DBIL, PHOS #### [facility] [address] [place] [address] Dr. Sarmad Patino Anion gap [Moles/Vol] 14.3 mmol/L Normal [facility] Comment on above: Performed By: #### U MAXI, LIPID, MG, CMP, DBIL, PHOS #### [facility] [address] [place] [address] Dr. Sarmad Patino AST [Catalytic activity/Vol] 15 U/L Normal 15-37 [facility] Comment on above: Performed By: #### U MAXI, LIPID, MG, CMP, DBIL, PHOS #### [facility] [address] [place] [address] Dr. Sarmad Patino Bilirubin [Mass/Vol] 0.5 mg/dL Normal 0.2-1.0 [facility] Comment on above: Performed By: #### U MAXI, LIPID, MG, CMP, DBIL, PHOS #### [facility] [address] [address] [address] Sarmad Patino Calcium [Mass/Vol] 9.7 mg/dL Normal 8.5-10.1 [facility] Comment on above: Performed By: #### U MAXI, LIPID, MG, CMP, DBIL, PHOS #### [facility] [address] [address] [address] Sarmad Patino Chloride [Moles/Vol] 105 mmol/L Normal 98-107 [facility] Comment on above: Performed By: #### U MAXI, LIPID, MG, CMP, DBIL, PHOS #### [facility] [address] [place] [address] Dr. Sarmad Patino CO2 [Moles/Vol] 26.6 mmol/L Normal 21.0-32.0 [facility] Comment on above: Performed By: #### U MAXI, LIPID, MG, CMP, DBIL, PHOS #### [facility] [address] [place] [address] Dr. Sarmad Patino Creatinine [Mass/Vol] 0.80 mg/dL Normal 0.55-1.02 [facility] Comment on above: Performed By: #### U MAXI, LIPID, MG, CMP, DBIL, PHOS #### [facility] [address] [place] [address] Dr. Sarmad Patino EGFR-AF NIUEAN >60 Normal >=60 [facility] Comment on above: Performed By: #### U MAXI, LIPID, MG, CMP, DBIL, PHOS #### [facility] [address] [place] [address] Dr. Sarmad Patino EGFR-NON AF NIUEAN >60 Normal >=60 [facility] Comment on above: Performed By: #### U MAXI, LIPID, MG, CMP, DBIL, PHOS #### [facility] [address] [place] [address] Dr. Sarmad Patino Globulin (S) [Mass/Vol] 3.0 g/dL Normal [facility] Comment on above: Performed By: #### U MAXI, LIPID, MG, CMP, DBIL, PHOS #### [facility] [address] [address] [address] Sarmad Patino Glucose [Mass/Vol] 99 mg/dL Normal 74-106 [facility] Comment on above: Performed By: #### U MAXI, LIPID, MG, CMP, DBIL, PHOS #### [facility] [address] [place] [address] Dr. Sarmad Patino Potassium [Moles/Vol] 3.9 mmol/L Normal 3.5-5.1 [facility] Comment on above: Performed By: #### U MAXI, LIPID, MG, CMP, DBIL, PHOS #### [facility] [address] [place] [address] Dr. Sarmad Patino Protein [Mass/Vol] 7.0 g/dL Normal 6.4-8.2 [facility] Comment on above: Performed By: #### U MAXI, LIPID, MG, CMP, DBIL, PHOS #### [facility] [address] [place] [address] Dr. Sarmad Patino Sodium [Moles/Vol] 142 mmol/L Normal 136-145 [facility] Comment on above: Performed By: #### U MAXI, LIPID, MG, CMP, DBIL, PHOS #### [facility] [address] [place] [address] Dr. Sarmad Patino Urea nitrogen [Mass/Vol] 14.0 mg/dL Normal 7.0-18.0 [facility] Comment on above: Performed By: #### U MAXI, LIPID, MG, CMP, DBIL, PHOS #### [facility] [address] [place] [address] Dr. Sarmad Patino Urea nitrogen/Creatinine [Mass ratio] 17.5 mg/mg Normal [facility] Comment on above: Performed By: #### U MAXI, LIPID, MG, CMP, DBIL, PHOS #### [facility] [address] [place] [address] Dr. Sarmad Patino URIC ACID SERUMon 04-08-2022 Urate [Mass/Vol] 5.2 mg/dL Normal 2.6-6.0 [facility] Comment on above: Performed By: #### U MAXI, LIPID, MG, CMP, DBIL, PHOS #### [facility] [address] [address] [address] Sarmad Patino Follow-Upon 03-19-2022 Follow-Up [id number] Tanika Grimm 1955 F Date Provider Department Center 03/19/2022 124-VIRGIL HAYNES None No family history on file Level of Service:07046 [place] OFFICE/OUTPATIENT ESTABLISHED LOW MDM 20-29 MIN Reason for Visit and Comments: Kidney Follow-up [[id number]] - Patient has been having medication changes over the last 3 months has experienced itching and cold sores. Patient also was diagnosed with covid during all the medication changes in November. Normal [facility] BK VIRUS PCR QUANTon 022 BKV DNA QUANT PCR PLASMA Negative Normal Negative [facility] Comment on above: Result Comment: No B K DNA detected. . The linear range of the assay is 22 - 100,000,000 IU/mL. Performed By: #### D DAVIDSON, MG, PHOS, CMP, LIPID, URIC #### [facility] [address] [place] [address] Dr. Sarmad Patino Log10 BKV DNA Plasma Normal [facility] Comment on above: Performed By: #### D DAVIDSON, MG, PHOS, CMP, LIPID, URIC #### [facility] [address] [address] [address] Sarmad Patino FK506 (TACROLIMUS) WHOLE BLO ODon 03-13-2022 Tacrolimus (FK506), Blood 5.0 ng/mL Normal 2.0-20.0 [facility] Comment on above: Result Comment: Trou gh (immediately following transplant) 15.0 . Trough (steady state, 2 weeks or more after transplant): 3.0 - 8.0 . Performed by LC-MS/MS technology. Performed By: #### D DAVIDSON, MG, PHOS, CMP, LIPID, URIC #### [facility] [address] [address] [address] Sarmad Patino GLYCOHEMOGLOBIN A1Con 2021 ADA RECOMMENDATION SEE BELOW Normal [facility] Comment on above: Result Comment: ADA RECOMMENDED LIMIT 4.0 - 6.0 ADA THERAPEUTIC TARGET < 7.0 ACTION SUGGESTED > 7.0 Performed By: #### D DAVIDSON, MG, PHOS, CMP, LIPID, URIC #### [facility] [address] [address] [address] Sarmad Pation Glucose [Mass/Vol] 111 mg/dL Normal [facility] Comment on above: Performed By: #### D DAVIDSON, MG, PHOS, CMP, LIPID, URIC #### [facility] [address] [address] [address] Sarmad Patino HbA1c (Bld) [Mass fraction] 5.5 % Normal 4.5-6.2 [facility] Comment on above: Performed By: #### D DAVIDSON, MG, PHOS, CMP, LIPID, URIC #### [facility] [address] [place] [address] Dr. Sarmad Patino LIVER PROFILEon 03-11-2022 Albumin [Mass/Vol] 3.7 g/dL Normal 3.4-5.0 [facility] Comment on above: Performed By: #### D DAVIDSON, MG, PHOS, CMP, LIPID, URIC #### [facility] [address] [address] [address] Sarmad Patino Albumin/Globulin [Mass ratio] 1.1 {ratio} Normal [facility] Comment on above: Performed By: #### D DAVIDSON, MG, PHOS, CMP, LIPID, URIC #### [facility] [address] [address] [address] Sarmad Patino ALP [Catalytic activity/Vol] 124 U/L Critically high 46-116 [facility] Comment on above: Performed By: #### D DAVIDSON, MG, PHOS, CMP, LIPID, URIC #### [facility] [address] [address] [address] Sarmad Patino ALT [Catalytic activity/Vol] 17 U/L Normal 14-59 [facility] Comment on above: Performed By: #### D DAVIDSON, MG, PHOS, CMP, LIPID, URIC #### [facility] [address] [place] [address] Dr. Sarmad Patino AST [Catalytic activity/Vol] 16 U/L Normal 15-37 [facility] Comment on above: Performed By: #### D DAVIDSON, MG, PHOS, CMP, LIPID, URIC #### [facility] [address] [place] [address] Dr. Sarmad CEDEÑOI, CONJUGATED 0.2 mg/dL Normal 0.0-0.2 [facility] Comment on above: Performed By: #### D DAVIDSON, MG, PHOS, CMP, LIPID, URIC #### [facility] [address] [place] [address] Dr. Sarmad Patino Bilirubin [Mass/Vol] 0.6 mg/dL Normal 0.2-1.0 [facility] Comment on above: Performed By: #### D DAVIDSON, MG, PHOS, CMP, LIPID, URIC #### [facility] [address] [place] [address] Dr. Sarmad Patino Globulin (S) [Mass/Vol] 3.4 g/dL Normal [facility] Comment on above: Performed By: #### D DAVIDSON, MG, PHOS, CMP, LIPID, URIC #### [facility] [address] [place] [address] Dr. Sarmad Patino Protein [Mass/Vol] 7.1 g/dL Normal 6.4-8.2 [facility] Comment on above: Performed By: #### D DAVIDSON, MG, PHOS, CMP, LIPID, URIC #### [facility] [address] [place] [address] Dr. Sarmad Patino MAGNESIUMon 03-11-2022 Magnesium [Mass/Vol] 1.6 mg/dL Critically low 1.8-2.4 [facility] Comment on above: Performed By: #### D DAVIDSON, MG, PHOS, CMP, LIPID, URIC #### [facility] [address] [place] [address] Dr. Sarmad Patino PHOSPHORUSon 03-11-2022 Phosphate [Mass/Vol] 3.5 mg/dL Normal 2.6-4.7 [facility] Comment on above: Performed By: #### D DAVIDSON, MG, PHOS, CMP, LIPID, URIC #### [facility] [address] [address] [address] Sarmad Patino URIC ACID SERUMon 03-11-2022 Urate [Mass/Vol] 5.3 mg/dL Normal 2.6-6.0 [facility] Comment on above: Performed By: #### D DAVIDSON, MG, PHOS, CMP, LIPID, URIC #### [facility] [address] [address] [address] Sarmad Patino MYCOPHENOLIC ACIDon 02-19-20 Mycophenolic Acid 1.5 ug/mL Normal 1.0-3.5 [facility] Comment on above: Performed By: #### D DAVIDSON, MG, PHOS, CMP, LIPID, URIC #### [facility] [address] [place] [address] Dr. Sarmad Patino Mycophenolic Acid Glucuronide 32 ug/mL Normal 15-125 [facility] Comment on above: Result Comment: [facility] 's Reference Range: 35-100 mcg/mL. Performed By: #### D DAVIDSON, MG, PHOS, CMP, LIPID, URIC #### [facility] [address] [address] [address] Sarmad Patino BK VIRUS PCR QUANTon 022 BKV DNA QUANT PCR PLASMA Negative Normal Negative [facility] Comment on above: Result Comment: No B K DNA detected. . The linear range of the assay is 22 - 100,000,000 IU/mL. Performed By: #### D DAVIDSON, MG, PHOS, CMP, LIPID, URIC #### [facility] [address] [address] [address] Sarmad Patino Log10 BKV DNA Plasma Normal [facility] Comment on above: Performed By: #### D DAVIDSON, MG, PHOS, CMP, LIPID, URIC #### [facility] [address] [place] [address] Dr. Sarmad Patino FK506 (TACROLIMUS) WHOLE BLO ODon 02-11-2022 Tacrolimus (FK506), Blood 4.4 ng/mL Normal 2.0-20.0 [facility] Comment on above: Result Comment: Trou gh (immediately following transplant) 15.0 . Trough (steady state, 2 weeks or more after transplant): 3.0 - 8.0 . Performed by LC-MS/MS technology. Performed By: #### U MAXI, LIPID, MG, CMP, DBIL, PHOS #### [facility] [address] [place] [address] Dr. Sarmad Patino BILIRUBIN CONJUGATED (DIRECT )on 02-08-2022 BILI, CONJUGATED 0.1 mg/dL Normal 0.0-0.2 [facility] Comment on above: Performed By: #### D DAVIDSON, MG, PHOS, CMP, LIPID, URIC #### [facility] [address] [place] [address] Dr. Sarmad Patino CBC AUTO DIFFon 02-08-2022 BASO # 0.0 103/ul Normal 0.0-0.1 [facility] Comment on above: Performed By: #### D DAVIDSON, MG, PHOS, CMP, LIPID, URIC #### [facility] [address] [place] [address] Dr. Sarmad Patino Basophils/100 WBC (Bld) 0.3 % Normal 0.2-2.0 [facility] Comment on above: Performed By: #### D DAVIDSON, MG, PHOS, CMP, LIPID, URIC #### [facility] [address] [place] [address] Dr. Sarmad Patino EO # 0.1 103/ul Normal 0.0-0.7 [facility] Comment on above: Performed By: #### D DAVIDSON, MG, PHOS, CMP, LIPID, URIC #### [facility] [address] [place] [address] Dr. Sarmad Patino Eosinophils/100 WBC (Bld) 1.0 % Normal 0.9-7.0 [facility] Comment on above: Performed By: #### D DAVIDSON, MG, PHOS, CMP, LIPID, URIC #### [facility] [address] [place] [address] Dr. Sarmad Patino Erythrocyte distribution width (RBC) [Ratio] 15.9 % Critically high 11.0-15.0 [facility] Comment on above: Performed By: #### D DAVIDSON, MG, PHOS, CMP, LIPID, URIC #### [facility] [address] [place] [address] Dr. Sarmad Patino Hematocrit (Bld) [Volume fraction] 42.2 % Normal 36.0-48.0 [facility] Comment on above: Performed By: #### D DAVIDSON, MG, PHOS, CMP, LIPID, URIC #### [facility] [address] [place] [address] Dr. Sarmad Patino Hemoglobin (Bld) [Mass/Vol] 13.8 g/dL Normal 12.0-16.0 [facility] Comment on above: Performed By: #### D DAVIDSON, MG, PHOS, CMP, LIPID, URIC #### [facility] [address] [place] [address] Dr. Sarmad Patino IG # 0.10 10e3/ul Critically high 0.00-0.03 [facility] Comment on above: Performed By: #### D DAVIDSON, MG, PHOS, CMP, LIPID, URIC #### [facility] [address] [place] [address] Dr. Sarmad Patino IG % 1.1 % Critically high 0.0-0.5 [facility] Comment on above: Performed By: #### D DAVIDSON, MG, PHOS, CMP, LIPID, URIC #### [facility] [address] [place] [address] Dr. Sarmad Patino LYMPH # 1.2 103/ul Normal 1.2-3.8 [facility] Comment on above: Performed By: #### D DAVIDSON, MG, PHOS, CMP, LIPID, URIC #### [facility] [address] [place] [address] Dr. Sarmad Patino Lymphocytes/100 WBC (Bld) 12.6 % Critically low 20.5-60.0 [facility] Comment on above: Performed By: #### D DAVIDSON, MG, PHOS, CMP, LIPID, URIC #### [facility] [address] [place] [address] Dr. Sarmad Patino MANUAL DIFF REQ NO Normal [facility] Comment on above: Performed By: #### D DAVIDSON, MG, PHOS, CMP, LIPID, URIC #### [facility] [address] [place] [address] Dr. Sarmad Patino MCH (RBC) [Entitic mass] 28.3 pg Normal 26.7-34.0 [facility] Comment on above: Performed By: #### D DAVIDSON, MG, PHOS, CMP, LIPID, URIC #### [facility] [address] [place] [address] Dr. Sarmad Patino MCHC (RBC) [Mass/Vol] 32.7 g/dL Normal 29.9-35.2 [facility] Comment on above: Performed By: #### D DAVIDSON, MG, PHOS, CMP, LIPID, URIC #### [facility] [address] [place] [address] Dr. Sarmad Patino MCV (RBC) [Entitic vol] 86.7 fL Normal 81.0-99.0 [facility] Comment on above: Performed By: #### D DAVIDSON, MG, PHOS, CMP, LIPID, URIC #### [facility] [address] [place] [address] Dr. Sarmad Patino MONO # 1.0 103/ul Critically high 0.3-0.8 [facility] Comment on above: Performed By: #### D DAVIDSON, MG, PHOS, CMP, LIPID, URIC #### [facility] [address] [place] [address] Dr. Sarmad Patino Monocytes/100 WBC (Bld) 10.7 % Normal 1.7-12.0 [facility] Comment on above: Performed By: #### D DAVIDSON, MG, PHOS, CMP, LIPID, URIC #### [facility] [address] [place] [address] Dr. Sarmad Patino NEUT # 6.9 103/ul Critically high 1.4-6.5 [facility] Comment on above: Performed By: #### D DAVIDSON, MG, PHOS, CMP, LIPID, URIC #### [facility] [address] [place] [address] Dr. Sarmad Patino Neutrophils/100 WBC (Bld) 74.3 % Normal 43.0-75.0 [facility] Comment on above: Performed By: #### D DAVIDSON, MG, PHOS, CMP, LIPID, URIC #### [facility] [address] [address] [address] Sarmad Patino Platelet mean volume (Bld) [Entitic vol] 11.1 fL Normal 9.5-13.5 [facility] Comment on above: Performed By: #### D DAVIDSON, MG, PHOS, CMP, LIPID, URIC #### [facility] [address] [address] [address] Sarmad Patino PLT 307 103/ul Normal 150-450 [facility] Comment on above: Performed By: #### D DAVIDSON, MG, PHOS, CMP, LIPID, URIC #### [facility] [address] [address] [address] Sarmad Patino RBC 4.87 106/ul Normal 4.20-5.40 [facility] Comment on above: Performed By: #### D DAVIDSON, MG, PHOS, CMP, LIPID, URIC #### [facility] [address] [address] [address] Sarmad Patino WBC 9.3 103/ul Normal 4.0-11.0 [facility] Comment on above: Performed By: #### D DAVIDSON, MG, PHOS, CMP, LIPID, URIC #### [facility] [address] [address] [address] Sarmad Patino GLYCOHEMOGLOBIN A1Con 2021 ADA RECOMMENDATION SEE BELOW Normal [facility] Comment on above: Result Comment: ADA RECOMMENDED LIMIT 4.0 - 6.0 ADA THERAPEUTIC TARGET < 7.0 ACTION SUGGESTED > 7.0 Performed By: #### D DAVIDSON, MG, PHOS, CMP, LIPID, URIC #### [facility] [address] [address] [address] Sarmad Patino Glucose [Mass/Vol] 134 mg/dL Normal [facility] Comment on above: Performed By: #### D DAVIDSON, MG, PHOS, CMP, LIPID, URIC #### [facility] [address] [address] [address] Sarmad Patino HbA1c (Bld) [Mass fraction] 6.3 % Critically high 4.5-6.2 [facility] Comment on above: Performed By: #### D DAVIDSON, MG, PHOS, CMP, LIPID, URIC #### [facility] [address] [address] [address] Sarmad Patino LIPID PROFILEon 02-08-2022 CHOL-HDL RATIO NORM SEE BELOW Normal [facility] Comment on above: Result Comment: 3.3 - 4.4 LOW RISK 4.4 - 7.1 AVERAGE RISK 7.1 - 11.0 MODERATE RISK >11.0 HIGH RISK Performed By: #### D DAVIDSON, MG, PHOS, CMP, LIPID, URIC #### [facility] [address] [address] [address] Sarmad Patino Cholesterol [Mass/Vol] 180 mg/dL Normal <=200 [facility] Comment on above: Performed By: #### D DAVIDSON, MG, PHOS, CMP, LIPID, URIC #### [facility] [address] [place] [address] Dr. Sarmad Patino Cholesterol in HDL [Mass/Vol] 58 mg/dL Normal 40-60 [facility] Comment on above: Performed By: #### D DAVIDSON, MG, PHOS, CMP, LIPID, URIC #### [facility] [address] [address] [address] Sarmad Patino Cholesterol in LDL [Mass/Vol] 86.6 mg/dL Normal [facility] Comment on above: Performed By: #### D DAVIDSON, MG, PHOS, CMP, LIPID, URIC #### [facility] [address] [place] [address] Dr. Sarmad Patino Cholesterol.total/C holesterol in HDL [Mass ratio] 3.1 {ratio} Normal [facility] Comment on above: Performed By: #### D DAVIDSON, MG, PHOS, CMP, LIPID, URIC #### [facility] [address] [place] [address] Dr. Sarmad Patino HDL NORMAL > or = 60 mg/dl - LO W CARDIOVASCULAR RISK <40 mg/dl - HIGH CARDIOVASCULAR RISK Normal [facility] Comment on above: Performed By: #### D DAVIDSON, MG, PHOS, CMP, LIPID, URIC #### [facility] [address] [address] [address] Sarmad Patino LDL CALC NORMAL SEE BELOW Normal [facility] Comment on above: Result Comment: <100 mg/dl OPTIMAL 100 - 129 mg/dl NEAR OR ABOVE OPTIMAL 130 - 159 mg/dl BORDERLINE HIGH 160 - 189 mg/dl HIGH >190 mg/dl VERY HIGH Performed By: #### D DAVIDSON, MG, PHOS, CMP, LIPID, URIC #### [facility] [address] [address] [address] Sarmad Patino Triglyceride [Mass/Vol] 177 mg/dL Critically high <=150 [facility] Comment on above: Performed By: #### D DAVIDSON, MG, PHOS, CMP, LIPID, URIC #### [facility] [address] [place] [address] Dr. Sarmad Patino VLDL CALC 35.4 mg/dL Normal [facility] Comment on above: Performed By: #### D DAVIDSON, MG, PHOS, CMP, LIPID, URIC #### [facility] [address] [address] [address] Sarmad Patino MAGNESIUMon 02-08-2022 Magnesium [Mass/Vol] 1.8 mg/dL Normal 1.8-2.4 [facility] Comment on above: Performed By: #### D DAVIDSON, MG, PHOS, CMP, LIPID, URIC #### [facility] [address] [place] [address] Dr. Sarmad Patino PHOSPHORUSon 02-08-2022 Phosphate [Mass/Vol] 3.3 mg/dL Normal 2.6-4.7 [facility] Comment on above: Performed By: #### D DAVIDSON, MG, PHOS, CMP, LIPID, URIC #### [facility] [address] [address] [address] Sarmad Patino PROF 14(COMP METB)on 022 Albumin [Mass/Vol] 3.8 g/dL Normal 3.4-5.0 [facility] Comment on above: Performed By: #### D DAVIDSON, MG, PHOS, CMP, LIPID, URIC #### [facility] [address] [address] [address] Sarmad Patino Albumin/Globulin [Mass ratio] 1.3 {ratio} Normal [facility] Comment on above: Performed By: #### D DAVIDSON, MG, PHOS, CMP, LIPID, URIC #### [facility] [address] [address] [address] Sarmad Patino ALP [Catalytic activity/Vol] 144 U/L Critically high 46-116 [facility] Comment on above: Performed By: #### D DAVIDSON, MG, PHOS, CMP, LIPID, URIC #### [facility] [address] [place] [address] Dr. Sarmad Patino ALT [Catalytic activity/Vol] 24 U/L Normal 14-59 [facility] Comment on above: Performed By: #### D DAVIDSON, MG, PHOS, CMP, LIPID, URIC #### [facility] [address] [place] [address] Dr. Sarmad Patino Anion gap [Moles/Vol] 13.7 mmol/L Normal [facility] Comment on above: Performed By: #### D DAVIDSON, MG, PHOS, CMP, LIPID, URIC #### [facility] [address] [place] [address] Dr. Sarmad Patino AST [Catalytic activity/Vol] 19 U/L Normal 15-37 [facility] Comment on above: Performed By: #### D DAVIDSON, MG, PHOS, CMP, LIPID, URIC #### [facility] [address] [place] [address] Dr. Sarmad Patino Bilirubin [Mass/Vol] 0.5 mg/dL Normal 0.2-1.0 [facility] Comment on above: Performed By: #### D DAVIDSON, MG, PHOS, CMP, LIPID, URIC #### [facility] [address] [place] [address] Dr. Sarmad Patino Calcium [Mass/Vol] 9.6 mg/dL Normal 8.5-10.1 [facility] Comment on above: Performed By: #### D DAVIDSON, MG, PHOS, CMP, LIPID, URIC #### [facility] [address] [address] [address] Sarmad Patino Chloride [Moles/Vol] 103 mmol/L Normal 98-107 [facility] Comment on above: Performed By: #### D DAVIDSON, MG, PHOS, CMP, LIPID, URIC #### [facility] [address] [place] [address] Dr. Sarmad Patino CO2 [Moles/Vol] 26.6 mmol/L Normal 21.0-32.0 [facility] Comment on above: Performed By: #### D DAVIDSON, MG, PHOS, CMP, LIPID, URIC #### [facility] [address] [place] [address] Dr. Sarmad Patino Creatinine [Mass/Vol] 0.75 mg/dL Normal 0.55-1.02 [facility] Comment on above: Performed By: #### D DAVIDSON, MG, PHOS, CMP, LIPID, URIC #### [facility] [address] [place] [address] Dr. Sarmad Patino EGFR-AF NIUEAN >60 Normal >=60 [facility] Comment on above: Performed By: #### D DAVIDSON, MG, PHOS, CMP, LIPID, URIC #### [facility] [address] [place] [address] Dr. Sarmad Patino EGFR-NON AF NIUEAN >60 Normal >=60 [facility] Comment on above: Performed By: #### D DAVIDSON, MG, PHOS, CMP, LIPID, URIC #### [facility] [address] [place] [address] Dr. Sarmad Patino Globulin (S) [Mass/Vol] 3.0 g/dL Normal [facility] Comment on above: Performed By: #### D DAVIDSON, MG, PHOS, CMP, LIPID, URIC #### [facility] [address] [place] [address] Dr. Sarmad Patino Glucose [Mass/Vol] 99 mg/dL Normal 74-106 [facility] Comment on above: Performed By: #### D DAVIDSON, MG, PHOS, CMP, LIPID, URIC #### [facility] [address] [place] [address] Dr. Sarmad Patino Potassium [Moles/Vol] 4.3 mmol/L Normal 3.5-5.1 [facility] Comment on above: Performed By: #### D DAVIDSON, MG, PHOS, CMP, LIPID, URIC #### [facility] [address] [place] [address] Dr. Sarmad Patino Protein [Mass/Vol] 6.8 g/dL Normal 6.4-8.2 [facility] Comment on above: Performed By: #### D DAVIDSON, MG, PHOS, CMP, LIPID, URIC #### [facility] [address] [place] [address] Dr. Sarmad Patino Sodium [Moles/Vol] 139 mmol/L Normal 136-145 [facility] Comment on above: Performed By: #### D DAVIDSON, MG, PHOS, CMP, LIPID, URIC #### [facility] [address] [place] [address] Dr. Sarmad Patino Urea nitrogen [Mass/Vol] 16.0 mg/dL Normal 7.0-18.0 [facility] Comment on above: Performed By: #### D DAVIDSON, MG, PHOS, CMP, LIPID, URIC #### [facility] [address] [place] [address] Dr. Sarmad Patino Urea nitrogen/Creatinine [Mass ratio] 21.3 mg/mg Normal [facility] Comment on above: Performed By: #### D DAVIDSON, MG, PHOS, CMP, LIPID, URIC #### [facility] [address] [place] [address] Dr. Sarmad Patino URIC ACID SERUMon 02-08-2022 Urate [Mass/Vol] 5.4 mg/dL Normal 2.6-6.0 [facility] Comment on above: Performed By: #### D DAVIDSON, MG, PHOS, CMP, LIPID, URIC #### [facility] [address] [place] [address] Dr. Sarmad Patino BK VIRUS PCR QUANTon 022 BKV DNA QUANT PCR PLASMA 27 IU/mL Normal Negative [facility] Comment on above: Result Comment: The linear range of the assay is 22 - 100,000,000 IU/mL. Performed By: #### D DAVIDSON, MG, PHOS, CMP, LIPID, URIC #### [facility] [address] [place] [address] Dr. Sarmad Patino Log10 BKV DNA Plasma 1.431 log10 IU/mL Normal [facility] Comment on above: Performed By: #### D DAVIDSON, MG, PHOS, CMP, LIPID, URIC #### [facility] [address] [place] [address] Dr. Sarmad Patino FK506 (TACROLIMUS) WHOLE BLO ODon 01-30-2022 Tacrolimus (FK506), Blood 6.5 ng/mL Normal 2.0-20.0 [facility] Comment on above: Result Comment: Trou gh (immediately following transplant) 15.0 . Trough (steady state, 2 weeks or more after transplant): 3.0 - 8.0 . Performed by LC-MS/MS technology. Performed By: #### D DAVIDSON, MG, PHOS, CMP, LIPID, URIC #### [facility] [address] [place] [address] Dr. Sarmad Patino RAPAMUNE(SIROLIMUS)on 2021 Rapamune(Sirolimus) , whole blood 9.9 ng/mL Normal 3.0-20.0 [facility] Comment on above: Result Comment: Perf ormed by LC/MS-MS technology . This test was developed and its performance characteristics determined by [facility]. It has not been cleared or approved by the Food and Drug Administration. Performed By: #### D DAVIDSON, MG, PHOS, CMP, LIPID, URIC #### [facility] [address] [place] [address] Dr. Sarmad Patino BILIRUBIN CONJUGATED (DIRECT )on 01-28-2022 BILI, CONJUGATED 0.1 mg/dL Normal 0.0-0.2 [facility] Comment on above: Performed By: #### D DAVIDSON, MG, PHOS, CMP, LIPID, URIC #### [facility] [address] [place] [address] Dr. Sarmad Patino CBC AUTO DIFFon 01-28-2022 BASO # 0.0 103/ul Normal 0.0-0.1 [facility] Comment on above: Performed By: #### D DAVIDSON, MG, PHOS, CMP, LIPID, URIC #### [facility] [address] [place] [address] Dr. Sarmad Patino Basophils/100 WBC (Bld) 0.3 % Normal 0.2-2.0 [facility] Comment on above: Performed By: #### D DAVIDSON, MG, PHOS, CMP, LIPID, URIC #### [facility] [address] [place] [address] Dr. Sarmad Patino EO # 0.2 103/ul Normal 0.0-0.7 [facility] Comment on above: Performed By: #### D DAVIDSON, MG, PHOS, CMP, LIPID, URIC #### [facility] [address] [place] [address] Dr. Sarmad Patino Eosinophils/100 WBC (Bld) 3.1 % Normal 0.9-7.0 [facility] Comment on above: Performed By: #### D DAVIDSON, MG, PHOS, CMP, LIPID, URIC #### [facility] [address] [place] [address] Dr. Sarmad Patino Erythrocyte distribution width (RBC) [Ratio] 15.4 % Critically high 11.0-15.0 [facility] Comment on above: Performed By: #### D DAVIDSON, MG, PHOS, CMP, LIPID, URIC #### [facility] [address] [place] [address] Dr. Sarmad Patino Hematocrit (Bld) [Volume fraction] 42.6 % Normal 36.0-48.0 [facility] Comment on above: Performed By: #### D DAVIDSON, MG, PHOS, CMP, LIPID, URIC #### [facility] [address] [place] [address] Dr. Sarmad Patino Hemoglobin (Bld) [Mass/Vol] 14.0 g/dL Normal 12.0-16.0 [facility] Comment on above: Performed By: #### D DAVIDSON, MG, PHOS, CMP, LIPID, URIC #### [facility] [address] [place] [address] Dr. Sarmad Patino IG # 0.05 10e3/ul Critically high 0.00-0.03 [facility] Comment on above: Performed By: #### D DAVIDSON, MG, PHOS, CMP, LIPID, URIC #### [facility] [address] [address] [address] Sarmad Patino IG % 0.7 % Critically high 0.0-0.5 [facility] Comment on above: Performed By: #### D DAVIDSON, MG, PHOS, CMP, LIPID, URIC #### [facility] [address] [address] [address] Sarmad Patino LYMPH # 1.1 103/ul Critically low 1.2-3.8 [facility] Comment on above: Performed By: #### D DAVIDSON, MG, PHOS, CMP, LIPID, URIC #### [facility] [address] [place] [address] Dr. Sarmad Patino Lymphocytes/100 WBC (Bld) 15.8 % Critically low 20.5-60.0 [facility] Comment on above: Performed By: #### D DAVIDSON, MG, PHOS, CMP, LIPID, URIC #### [facility] [address] [address] [address] Sarmad Patino MANUAL DIFF REQ NO Normal [facility] Comment on above: Performed By: #### D DAVIDSON, MG, PHOS, CMP, LIPID, URIC #### [facility] [address] [place] [address] Dr. Sarmad Patino MCH (RBC) [Entitic mass] 28.3 pg Normal 26.7-34.0 [facility] Comment on above: Performed By: #### D DAVIDSON, MG, PHOS, CMP, LIPID, URIC #### [facility] [address] [address] [address] Sarmad Patino MCHC (RBC) [Mass/Vol] 32.9 g/dL Normal 29.9-35.2 [facility] Comment on above: Performed By: #### D DAVIDSON, MG, PHOS, CMP, LIPID, URIC #### [facility] [address] [place] [address] Dr. Sarmad Patino MCV (RBC) [Entitic vol] 86.2 fL Normal 81.0-99.0 [facility] Comment on above: Performed By: #### D DAVIDSON, MG, PHOS, CMP, LIPID, URIC #### [facility] [address] [place] [address] Dr. Sarmad Patino MONO # 0.8 103/ul Normal 0.3-0.8 [facility] Comment on above: Performed By: #### D DAVIDSON, MG, PHOS, CMP, LIPID, URIC #### [facility] [address] [place] [address] Dr. Sarmad Patino Monocytes/100 WBC (Bld) 11.0 % Normal 1.7-12.0 [facility] Comment on above: Performed By: #### D DAVIDSON, MG, PHOS, CMP, LIPID, URIC #### [facility] [address] [place] [address] Dr. Sarmad Patino NEUT # 4.8 103/ul Normal 1.4-6.5 [facility] Comment on above: Performed By: #### D DAVIDSON, MG, PHOS, CMP, LIPID, URIC #### [facility] [address] [place] [address] Dr. Sarmad Patino Neutrophils/100 WBC (Bld) 69.1 % Normal 43.0-75.0 [facility] Comment on above: Performed By: #### D DAVIDSON, MG, PHOS, CMP, LIPID, URIC #### [facility] [address] [place] [address] Dr. Sarmad Patino Platelet mean volume (Bld) [Entitic vol] 10.8 fL Normal 9.5-13.5 [facility] Comment on above: Performed By: #### D DAVIDSON, MG, PHOS, CMP, LIPID, URIC #### [facility] [address] [place] [address] Dr. Sarmad Patino PLT 208 103/ul Normal 150-450 [facility] Comment on above: Performed By: #### D DAVIDSON, MG, PHOS, CMP, LIPID, URIC #### [facility] [address] [place] [address] Dr. Sarmad Patino RBC 4.94 106/ul Normal 4.20-5.40 [facility] Comment on above: Performed By: #### D DAVIDSON, MG, PHOS, CMP, LIPID, URIC #### [facility] [address] [address] [address] Sarmad Patino WBC 7.0 103/ul Normal 4.0-11.0 [facility] Comment on above: Performed By: #### D DAVIDSON, MG, PHOS, CMP, LIPID, URIC #### [facility] [address] [place] [address] Dr. Sarmad Patino GLYCOHEMOGLOBIN A1Con 2021 ADA RECOMMENDATION SEE BELOW Normal [facility] Comment on above: Result Comment: ADA RECOMMENDED LIMIT 4.0 - 6.0 ADA THERAPEUTIC TARGET < 7.0 ACTION SUGGESTED > 7.0 Performed By: #### D DAVIDSON, MG, PHOS, CMP, LIPID, URIC #### [facility] [address] [address] [address] Sarmad Patino Glucose [Mass/Vol] 137 mg/dL Normal [facility] Comment on above: Performed By: #### D DAVIDSON, MG, PHOS, CMP, LIPID, URIC #### [facility] [address] [place] [address] Dr. Sarmad Patino HbA1c (Bld) [Mass fraction] 6.4 % Critically high 4.5-6.2 [facility] Comment on above: Performed By: #### D DAVIDSON, MG, PHOS, CMP, LIPID, URIC #### [facility] [address] [address] [address] Sarmad Patino LIPID PROFILEon 01-28-2022 CHOL-HDL RATIO NORM SEE BELOW Normal [facility] Comment on above: Result Comment: 3.3 - 4.4 LOW RISK 4.4 - 7.1 AVERAGE RISK 7.1 - 11.0 MODERATE RISK >11.0 HIGH RISK Performed By: #### D DAVIDSON, MG, PHOS, CMP, LIPID, URIC #### [facility] [address] [place] [address] Dr. Sarmad Patino Cholesterol [Mass/Vol] 209 mg/dL Critically high <=200 [facility] Comment on above: Performed By: #### D DAVIDSON, MG, PHOS, CMP, LIPID, URIC #### [facility] [address] [address] [address] Sarmad Patino Cholesterol in HDL [Mass/Vol] 59 mg/dL Normal 40-60 [facility] Comment on above: Performed By: #### D DAVIDSON, MG, PHOS, CMP, LIPID, URIC #### [facility] [address] [address] [address] Sarmad Patino Cholesterol in LDL [Mass/Vol] 100.4 mg/dL Normal [facility] Comment on above: Performed By: #### D DAVIDSON, MG, PHOS, CMP, LIPID, URIC #### [facility] [address] [place] [address] Dr. Sarmad Patino Cholesterol.total/C holesterol in HDL [Mass ratio] 3.5 {ratio} Normal [facility] Comment on above: Performed By: #### D DAVIDSON, MG, PHOS, CMP, LIPID, URIC #### [facility] [address] [place] [address] Dr. Sarmad Patino HDL NORMAL > or = 60 mg/dl - LO W CARDIOVASCULAR RISK <40 mg/dl - HIGH CARDIOVASCULAR RISK Normal [facility] Comment on above: Performed By: #### D DAVIDSON, MG, PHOS, CMP, LIPID, URIC #### [facility] [place] [facility] [address] [address] [address] Sarmad Patino LDL CALC NORMAL SEE BELOW Normal [facility] Comment on above: Result Comment: <100 mg/dl OPTIMAL 100 - 129 mg/dl NEAR OR ABOVE OPTIMAL 130 - 159 mg/dl BORDERLINE HIGH 160 - 189 mg/dl HIGH >190 mg/dl VERY HIGH Performed By: #### D DAVIDSON, MG, PHOS, CMP, LIPID, URIC #### [facility] [place] [facility] [address] [address] [address] Sarmad Patino Triglyceride [Mass/Vol] 248 mg/dL Critically high <=150 [facility] [place] [facility] Comment on above: Performed By: #### D DAVIDSON, MG, PHOS, CMP, LIPID, URIC #### [facility] [place] [facility] [address] [address] [address] Sarmad Patino VLDL CALC 49.6 mg/dL Normal [facility] Comment on above: Performed By: #### D DAVIDSON, MG, PHOS, CMP, LIPID, URIC #### [facility] [place] [facility] [address] [place] [address] Dr. Sarmad Patino MAGNESIUMon 01-28-2022 Magnesium [Mass/Vol] 1.6 mg/dL Critically low 1.8-2.4 [facility] Comment on above: Performed By: #### D DAVIDSON, MG, PHOS, CMP, LIPID, URIC #### [facility] [place] [facility] [address] [place] [address] Dr. Sarmad Patino PHOSPHORUSon 01-28-2022 Phosphate [Mass/Vol] 2.7 mg/dL Normal 2.6-4.7 [facility] Comment on above: Performed By: #### D DAVIDSON, MG, PHOS, CMP, LIPID, URIC #### [facility] [place] [facility] [address] [place] [address] Dr. Sarmad Patino PROF 14(COMP METB)on 022 Albumin [Mass/Vol] 3.3 g/dL Critically low 3.4-5.0 [facility] Comment on above: Performed By: #### D DAVIDSON, MG, PHOS, CMP, LIPID, URIC #### [facility] [place] [facility] [address] [place] [address] Dr. Sarmad Patino Albumin/Globulin [Mass ratio] 0.9 {ratio} Normal [facility] Comment on above: Performed By: #### D DAVIDSON, MG, PHOS, CMP, LIPID, URIC #### [facility] [place] [facility] [address] [place] [address] Dr. Sarmad Patino ALP [Catalytic activity/Vol] 124 U/L Critically high 46-116 [facility] Comment on above: Performed By: #### D DAVIDSON, MG, PHOS, CMP, LIPID, URIC #### [facility] [place] [facility] [address] [place] [address] Dr. Sarmad Patino ALT [Catalytic activity/Vol] 28 U/L Normal 14-59 [facility] Comment on above: Performed By: #### D DAVIDSON, MG, PHOS, CMP, LIPID, URIC #### [facility] [place] [facility] [address] [address] [address] Sarmad Patino Anion gap [Moles/Vol] 12.0 mmol/L Normal [facility] Comment on above: Performed By: #### D DAVIDSON, MG, PHOS, CMP, LIPID, URIC #### [facility] [place] [facility] [address] [place] [address] Dr. Sarmad Patino AST [Catalytic activity/Vol] 20 U/L Normal 15-37 [facility] Comment on above: Performed By: #### D DAVIDSON, MG, PHOS, CMP, LIPID, URIC #### [facility] [place] [facility] [address] [place] [address] Dr. Sarmad Patino Bilirubin [Mass/Vol] 0.5 mg/dL Normal 0.2-1.0 [facility] Comment on above: Performed By: #### D DAVIDSON, MG, PHOS, CMP, LIPID, URIC #### [facility] [place] [facility] [address] [place] [address] Dr. Sarmad Patino Calcium [Mass/Vol] 9.1 mg/dL Normal 8.5-10.1 [facility] Comment on above: Performed By: #### D DAVIDSON, MG, PHOS, CMP, LIPID, URIC #### [facility] [place] [facility] [address] [place] [address] Dr. Sarmad Patino Chloride [Moles/Vol] 104 mmol/L Normal 98-107 [facility] Comment on above: Performed By: #### D DAVIDSON, MG, PHOS, CMP, LIPID, URIC #### [facility] [place] [facility] [address] [place] [address] Dr. Sarmad Patino CO2 [Moles/Vol] 25.7 mmol/L Normal 21.0-32.0 [facility] Comment on above: Performed By: #### D DAVIDSON, MG, PHOS, CMP, LIPID, URIC #### [facility] [place] [facility] [address] [place] [address] Dr. Sarmad Patino Creatinine [Mass/Vol] 0.77 mg/dL Normal 0.55-1.02 [facility] Comment on above: Performed By: #### D DAVIDSON, MG, PHOS, CMP, LIPID, URIC #### [facility] [place] [facility] [address] [address] [address] Sarmad Patino EGFR-AF NIUEAN >60 Normal >=60 [facility] Comment on above: Performed By: #### D DAVIDSON, MG, PHOS, CMP, LIPID, URIC #### [facility] [place] [facility] [address] [address] [address] Sarmad Patino EGFR-NON AF NIUEAN >60 Normal >=60 [facility] Comment on above: Performed By: #### D DAVIDSON, MG, PHOS, CMP, LIPID, URIC #### [facility] [place] [facility] [address] [address] [address] Sarmad Patino Globulin (S) [Mass/Vol] 3.7 g/dL Normal [facility] Comment on above: Performed By: #### D DAVIDSON, MG, PHOS, CMP, LIPID, URIC #### [facility] [place] [facility] [address] [address] [address] Sarmad Patino Glucose [Mass/Vol] 108 mg/dL Critically high 74-106 [facility] Comment on above: Performed By: #### D DAVIDSON, MG, PHOS, CMP, LIPID, URIC #### [facility] [place] [facility] [address] [address] [address] Sarmad Patino Potassium [Moles/Vol] 3.7 mmol/L Normal 3.5-5.1 [facility] Comment on above: Performed By: #### D DAVIDSON, MG, PHOS, CMP, LIPID, URIC #### [facility] [place] [facility] [address] [address] [address] Sarmad Patino Protein [Mass/Vol] 7.0 g/dL Normal 6.4-8.2 [facility] Comment on above: Performed By: #### D DAVIDSON, MG, PHOS, CMP, LIPID, URIC #### [facility] [place] [facility] [address] [address] [address] Sarmad Patino Sodium [Moles/Vol] 138 mmol/L Normal 136-145 [facility] Comment on above: Performed By: #### D DAVIDSON, MG, PHOS, CMP, LIPID, URIC #### [facility] [place] [facility] [address] [place], [place] [address] Dr. Sarmad Patino Urea nitrogen [Mass/Vol] 15.0 mg/dL Normal 7.0-18.0 [facility] Comment on above: Performed By: #### D DAVIDSON, MG, PHOS, CMP, LIPID, URIC #### [facility] [place] [facility] [id number] Sarmad Patino Urea nitrogen/Creatinine [Mass ratio] 19.5 mg/mg Normal [facility] [place] [facility] Comment on above: Performed By: #### D DAVIDSON, MG, PHOS, CMP, LIPID, URIC #### [facility] [place] [facility] [address] [address] [address] Sarmad Patino URIC ACID SERUMon 01-28-2022 Urate [Mass/Vol] 4.3 mg/dL Normal 2.6-6.0 [facility] Comment on above: Performed By: #### D DAVIDSON, MG, PHOS, CMP, LIPID, URIC #### [facility] [place] [facility] [address] [address] [address] Sarmad Patino Quick Strepon 01-12-2022 S. pyogenes Org specific cx Ql (Throat) Negative Clickst Other Quick Strep Clickst Other XR CHEST 1 Von 01-07-2022 XR CHEST 1 V EXAMINATION: XR CHES T 1 V HISTORY: SHORTNESS OF BREATH , dyspnea, productive cough COMPARISON: XR chest 01/03/2022 FINDINGS: LUNGS: Thin curvilinear opacity within the left lung base. VASCULATURE: No increased pulmonary vasculature. PLEURA: Blunting of right lateral costophrenic angle suggesting pleural fluid. CARDIAC: No cardiomegaly or cardiac silhouette abnormality. MEDIASTINUM: No visible mass or adenopathy. BONES: No fracture or visible bone lesion. OTHER: Negative. IMPRESSION: 1. Clearing of previously seen right pulmonary infiltrates but interval development of a small pleural effusion.. 2. Trace amount of left basilar infiltrates; improved. Electronically authenticated by: BRITTON BERNARD Date: 2022-01-07 15:00 Normal [facility] [place] [facility] CBC W MANUAL DIFFon 01-04-20 22 ATYPICAL LYMPH # 1.40 103/ul Normal [facility] Comment on above: Performed By: #### D DAVIDSON, MG, PHOS, CMP, LIPID, URIC #### [facility] [place] [facility] [address] [address] [address] Sarmad Patino ATYPICAL LYMPH % 10 % Normal [facility] Comment on above: Performed By: #### D DAVIDSON, MG, PHOS, CMP, LIPID, URIC #### [facility] [place] [facility] [address] [address] [address] Sarmad Patino BAND # 0.6 103/ul Critically high 0.0-0.3 [facility] Comment on above: Performed By: #### D DAVIDSON, MG, PHOS, CMP, LIPID, URIC #### [facility] [place] [facility] [address] [address] [address] Sarmad Patino BAND % 4 % Normal 0-5 [facility] [place] [facility] Comment on above: Performed By: #### D DAVIDSON, MG, PHOS, CMP, LIPID, URIC #### [facility] [place] [facility] [address] [place] [address] Dr. Sarmad Patino BASOM # 0.00 103/ul Normal 0.00-0.10 [facility] [place] [facility] Comment on above: Performed By: #### D DAVIDSON, MG, PHOS, CMP, LIPID, URIC #### [facility] [place] [facility] [address] [address] [address] Sarmad Patino BASOM % 0.0 % Critically low 0.2-2.0 [facility] Comment on above: Performed By: #### D DAVIDSON, MG, PHOS, CMP, LIPID, URIC #### [facility] [place] [facility] [address] [address] [address] Sarmad Patino BLAST # Normal [facility] [place] [facility] Comment on above: Performed By: #### D DAVIDSON, MG, PHOS, CMP, LIPID, URIC #### [facility] [place] [facility] [address] [address] [address] Sarmad Patino BLAST % Normal [facility] [place] [facility] Comment on above: Performed By: #### D DAVIDSON, MG, PHOS, CMP, LIPID, URIC #### [facility] [place] [facility] [address] [address] [address] Sarmad Patino CORRECTED WBC Normal 4.0-11.0 [facility] Comment on above: Performed By: #### D DAVIDSON, MG, PHOS, CMP, LIPID, URIC #### [facility] [place] [facility] [address] [address] [address] Sarmad Patino EOS # 0.14 103/ul Normal 0.00-0.70 [facility] [place] [facility] Comment on above: Performed By: #### D DAVIDSON, MG, PHOS, CMP, LIPID, URIC #### [facility] [place] [facility] [address] [place] [address] Dr. Sarmad Patino EOS% 1.0 % Normal 0.9-7.0 [facility] Comment on above: Performed By: #### D DAVIDSON, MG, PHOS, CMP, LIPID, URIC #### [facility] [place] [facility] [address] [place] [address] Dr. Sarmad Patino HCT 42.8 % Normal 36.0-48.0 [facility] Comment on above: Performed By: #### D DAVIDSON, MG, PHOS, CMP, LIPID, URIC #### [facility] [place] [facility] [address] [address] [address] Sarmad Patino HGB 14.2 g/dl Normal 12.0-16.0 [facility] Comment on above: Performed By: #### D DAVIDSON, MG, PHOS, CMP, LIPID, URIC #### [facility] [place] [facility] [address] [place] [address] Dr. Sarmad Patino LYMPHM # 0.00 103/ul Critically low 1.20-3.80 [facility] Comment on above: Performed By: #### D DAVIDSON, MG, PHOS, CMP, LIPID, URIC #### [facility] [place] [facility] [address] [place] [address] Dr. Sarmad Patino LYMPHM% 0.0 % Critically low 20.5-60.0 [facility] Comment on above: Performed By: #### D DAVIDSON, MG, PHOS, CMP, LIPID, URIC #### [facility] [place] [facility] [address] [place] [address] Dr. Sarmad Patino MCH 28.8 pg Normal 26.7-34.0 [facility] Comment on above: Performed By: #### D DAVIDSON, MG, PHOS, CMP, LIPID, URIC #### [facility] [place] [facility] [address] [place] [address] Dr. Sarmad Patino MCHC 33.2 g/dl Normal 29.9-35.2 [facility] [place] [facility] Comment on above: Performed By: #### D DAVIDSON, MG, PHOS, CMP, LIPID, URIC #### [facility] [place] [facility] [address] [place] [address] Dr. Sarmad Patino MCV 86.8 fL Normal 81.0-99.0 [facility] Comment on above: Performed By: #### D DAVIDSON, MG, PHOS, CMP, LIPID, URIC #### [facility] [place] [facility] [address] [place] [address] Dr. Sarmad Patino METAMYELOCYTE # Normal [facility] Comment on above: Performed By: #### D DAVIDSON, MG, PHOS, CMP, LIPID, URIC #### [facility] [place] [facility] [address] [place] [address] Dr. Sarmad Patino METAMYELOCYTE % Normal [facility] Comment on above: Performed By: #### D DAVIDSON, MG, PHOS, CMP, LIPID, URIC #### [facility] [place] [facility] [address] [place] [address] Dr. Sarmad Patino MONOM# 0.84 103/ul Critically high 0.30-0.80 [facility] Comment on above: Performed By: #### D DAVIDSON, MG, PHOS, CMP, LIPID, URIC #### [facility] [place] [facility] [address] [place] [address] Dr. Sarmad Patino MONOM% 6.0 % Normal 1.7-12.0 [facility] [place] [facility] Comment on above: Performed By: #### D DAVIDSON, MG, PHOS, CMP, LIPID, URIC #### [facility] [place] [facility] [address] [place] [address] Dr. Sarmad Patino MPV 11.5 fL Normal 9.5-13.5 [facility] [place] [facility] Comment on above: Performed By: #### D DAVIDSON, MG, PHOS, CMP, LIPID, URIC #### [facility] [place] [facility] [address] [address] [address] Sarmad Patino MYELOCYTE # 0.3 103/ul Normal [facility] Comment on above: Performed By: #### D DAVIDSON, MG, PHOS, CMP, LIPID, URIC #### [facility] [place] [facility] [address] [address] [address] Sarmad Patino MYELOCYTE % 2 % Normal [facility] Comment on above: Performed By: #### D DAVIDSON, MG, PHOS, CMP, LIPID, URIC #### [facility] [place] [facility] [address] [address] [address] Sarmad Patino NRBC Normal [facility] Comment on above: Performed By: #### D DAVIDSON, MG, PHOS, CMP, LIPID, URIC #### [facility] [place] [facility] [address] [address] [address] Sarmad Patino PLT 180 103/ul Normal 150-450 [facility] Comment on above: Performed By: #### D DAVIDSON, MG, PHOS, CMP, LIPID, URIC #### [facility] [place] [facility] [address] [address] [address] Sarmad Patino RBC 4.93 106/ul Normal 4.20-5.40 [facility] Comment on above: Performed By: #### D DAVIDSON, MG, PHOS, CMP, LIPID, URIC #### [facility] [place] [facility] [address] [address] [address] Sarmad Patino RDW 13.9 % Normal 11.0-15.0 [facility] Comment on above: Performed By: #### D DAVIDSON, MG, PHOS, CMP, LIPID, URIC #### [facility] [place] [facility] [address] [address] [address] Sarmad Patino SEG # 10.78 103/ul Critically high 1.40-6.50 [facility] Comment on above: Performed By: #### D DAVIDSON, MG, PHOS, CMP, LIPID, URIC #### [facility] [place] [facility] [address] [address] [address] Sarmad Patino SEG % 77.0 % Critically high 43.0-75.0 [facility] Comment on above: Performed By: #### D DAVIDSON, MG, PHOS, CMP, LIPID, URIC #### [facility] [place] [facility] [address] [place], [place] [address] Dr. Sarmad Patino WBC 14.0 103/ul Critically high 4.0-11.0 [facility] Comment on above: Performed By: #### D DAVIDSON, MG, PHOS, CMP, LIPID, URIC #### [facility] [place] [facility] [address] [place], [place] [address] NECK ST W CONon [address] W CON EXAMINATION: CT NECK ST W CON HISTORY: Pain, sore throat. Cough. Covid positive. COMPARISON: None. TECHNIQUE: CT examination of the soft tissues of the neck following the administration of intravenous contrast. Coronal and sagittal reformations were performed. Dose reduction techniques were achieved by using automated exposure control and/or adjustment of mA and/or kV according to patient size and/or use of iterative reconstruction technique. FINDINGS: Visualized intracranial contents unremarkable. There is moderate mucosal thickening in the ethmoid air cells and maxillary sinuses. Mastoid air cells and middle ear cavities clear. Skull base intact. Street [employer] spaces normal. Parotid glands normal. Submandibular glands normal. The tongue and floor of the mouth are unremarkable. Nasopharynx appears normal. Oropharynx and retropharyngeal space unremarkable. Epiglottis normal. There is significant mucosal edema along the aryepiglottic folds and some enhancement of the mucosa along the vocal cords. No laryngeal mass. There is some mild edema surrounding the subglottic trachea. Thyroid gland normal. Visualized portion of the esophagus unremarkable. No carotid artery stenosis. Internal jugular veins patent. Vertebral arteries appear normal. No lymphadenopathy in the neck. No neck mass. Lung apices clear. Cervical spine unremarkable. IMPRESSION: 1. There is mucosal edema and swelling along the aryepiglottic folds as well as some enhancement along the vocal cords. There is some edema around the subglottic trachea. The findings may be related to acute laryngitis. 2. No laryngeal mass. 3. Oropharynx, nasopharynx and retropharyngeal space normal. 4. No lymphadenopathy in the neck. No neck mass. Electronically authenticated by: JOSE F HOPPER Date: 2022-01-03 10:40 Normal [facility] [place] [facility] Covid-19 PCR (CVDTB)on SARS-CoV-2 (COVID-19) RNA MURALI+probe Ql (Unsp spec) Detected Critically abnormal NOT DETECTED [facility] [place] [facility] Comment on above: Result Comment: This test is not yet approved or cleared by the [place] FDA. When there are no FDA-approved or cleared tests available, and other criteria are met, FDA can make tests available under an emergency access mechanism called an Emergency Use Authorization (EUA). The EUA for this test is supported by the [place] of Health and Human Service's declaration that circumstances exist to justify the emergency use of in vitro diagnostics for the detection and/or diagnosis of the virus that causes COVID-19. This EUA will remain in effect for the duration of the COVID-19 declaration justifying emergency of IVDs, unless it is terminated or revoked by the FDA (after which the test may no longer be used). Performed By: #### D DAVIDSON, MG, PHOS, CMP, LIPID, URIC #### [facility] [place] [facility] [address] [address] [address] Sarmad Patino GROUP A STREP CULTUREon S. pyogenes Ag Ql (Unsp spec) Culture Observations: Negative for Group A Streptococcus Normal [facility] [place] [facility] Comment on above: Performed By: #### U MAXI, LIPID, MG, CMP, DBIL, PHOS #### [facility] [place] [facility] [address] [address] [address] Sarmad Patino INFLUENZA A AND B AGon 01-03 INFLUENZA A AG Negative Normal NEGATIVE SEE COMMENT [facility] [place] [facility] Comment on above: Performed By: #### D DAVIDSON, MG, PHOS, CMP, LIPID, URIC #### [facility] [place] [facility] [address] [address] [address] Sarmad Patino INFLUENZA B AG Negative Normal NEGATIVE SEE COMMENT [facility] Comment on above: Performed By: #### D DAVIDSON, MG, PHOS, CMP, LIPID, URIC #### [facility] [place] [facility] [address] [address] [address] Sarmad Patino INTERNAL CONTROLS Within Normal Limits Normal Wi thin Normal Limits [facility] [place] [facility] Comment on above: Performed By: #### D DAVIDSON, MG, PHOS, CMP, LIPID, URIC #### [facility] [place] [facility] [address] [address] [address] Sarmad Patino PROF 14(COMP METB)on 022 Albumin [Mass/Vol] 2.5 g/dL Critically low 3.4-5.0 [facility] [place] [facility] Comment on above: Performed By: #### U MAXI, LIPID, MG, CMP, DBIL, PHOS #### [facility] [place] [facility] [address] [place] [address] Dr. Sarmad Patino Albumin/Globulin [Mass ratio] 0.5 {ratio} Normal [facility] Comment on above: Performed By: #### U MAXI, LIPID, MG, CMP, DBIL, PHOS #### [facility] [place] [facility] [address] [place] [address] Dr. Sarmad Patino ALP [Catalytic activity/Vol] 185 U/L Critically high 46-116 [facility] Comment on above: Performed By: #### U MAXI, LIPID, MG, CMP, DBIL, PHOS #### [facility] [place] [facility] [address] [place] [address] Dr. Sarmad Patino ALT [Catalytic activity/Vol] 108 U/L Critically high 14-59 [facility] Comment on above: Performed By: #### U MAXI, LIPID, MG, CMP, DBIL, PHOS #### [facility] [place] [facility] [address] [address] [address] Sarmad Patino Anion gap [Moles/Vol] 8.3 mmol/L Normal [facility] Comment on above: Performed By: #### U MAXI, LIPID, MG, CMP, DBIL, PHOS #### [facility] [place] [facility] [address] [address] [address] Sarmad Patino AST [Catalytic activity/Vol] 59 U/L Critically high 15-37 [facility] Comment on above: Performed By: #### U MAXI, LIPID, MG, CMP, DBIL, PHOS #### [facility] [place] [facility] [address] [place] [address] Dr. Sarmad Patino Bilirubin [Mass/Vol] 0.6 mg/dL Normal 0.2-1.0 [facility] Comment on above: Performed By: #### U MAXI, LIPID, MG, CMP, DBIL, PHOS #### [facility] [place] [facility] [address] [place] [address] Dr. Sarmad Patino Calcium [Mass/Vol] 9.0 mg/dL Normal 8.5-10.1 [facility] Comment on above: Performed By: #### U MAXI, LIPID, MG, CMP, DBIL, PHOS #### [facility] [place] [facility] [address] [address] [address] Sarmad Patino Chloride [Moles/Vol] 100 mmol/L Normal 98-107 [facility] Comment on above: Performed By: #### U MAXI, LIPID, MG, CMP, DBIL, PHOS #### [facility] [place] [facility] [address] [place] [address] Dr. Sarmad Patino CO2 [Moles/Vol] 29.0 mmol/L Normal 21.0-32.0 [facility] Comment on above: Performed By: #### U MAXI, LIPID, MG, CMP, DBIL, PHOS #### [facility] [place] [facility] [address] [place] [address] Dr. Sarmad Patino Creatinine [Mass/Vol] 1.05 mg/dL Critically high 0.55-1.02 [facility] Comment on above: Performed By: #### U MAXI, LIPID, MG, CMP, DBIL, PHOS #### [facility] [place] [facility] [address] [place] [address] Dr. Sarmad Patino EGFR-AF NIUEAN >60 Normal >=60 [facility] Comment on above: Performed By: #### U MAXI, LIPID, MG, CMP, DBIL, PHOS #### [facility] [place] [facility] [address] [place] [address] Dr. Sarmad Patino EGFR-NON AF NIUEAN 53 mL/min/1.73m2 Critically low >=60 [facility] Comment on above: Performed By: #### U MAXI, LIPID, MG, CMP, DBIL, PHOS #### [facility] [place] [facility] [address] [place] [address] Dr. Sarmad Patino Globulin (S) [Mass/Vol] 4.6 g/dL Normal [facility] Comment on above: Performed By: #### U MAXI, LIPID, MG, CMP, DBIL, PHOS #### [facility] [place] [facility] [address] [place] [address] Dr. Sarmad Patino Glucose [Mass/Vol] 154 mg/dL Critically high 74-106 [facility] Comment on above: Performed By: #### U MAXI, LIPID, MG, CMP, DBIL, PHOS #### [facility] [place] [facility] [address] [address] [address] Sarmad Patino Potassium [Moles/Vol] 3.3 mmol/L Critically low 3.5-5.1 [facility] Comment on above: Performed By: #### U MAXI, LIPID, MG, CMP, DBIL, PHOS #### [facility] [place] [facility] [address] [place] [address] Dr. Sarmad Patino Protein [Mass/Vol] 7.1 g/dL Normal 6.4-8.2 [facility] Comment on above: Performed By: #### U MAXI, LIPID, MG, CMP, DBIL, PHOS #### [facility] [place] [facility] [address] [place] [address] Dr. Sarmad Patino Sodium [Moles/Vol] 134 mmol/L Critically low 136-145 [facility] Comment on above: Performed By: #### U MAXI, LIPID, MG, CMP, DBIL, PHOS #### [facility] [place] [facility] [address] [place] [address] Dr. Sarmad Patino Urea nitrogen [Mass/Vol] 24.0 mg/dL Critically high 7.0-18.0 [facility] Comment on above: Performed By: #### U MAXI, LIPID, MG, CMP, DBIL, PHOS #### [facility] [place] [facility] [address] [place] [address] Dr. Sarmad Patino Urea nitrogen/Creatinine [Mass ratio] 22.9 mg/mg Normal [facility] Comment on above: Performed By: #### U MAXI, LIPID, MG, CMP, DBIL, PHOS #### [facility] [place] [facility] [address] [place], [place] [address] Dr. Sarmad Patino STREPT SCREENon 01-03-2022 STREP SCREEN A Negative Normal NEGATIVE [facility] Comment on above: Performed By: #### U MAXI, LIPID, MG, CMP, DBIL, PHOS #### [facility] [place] [facility] [address], [place] [address] Dr. Sarmad Patino XR CHEST 2 Von 01-03-2022 XR CHEST 2 V EXAM: XR CHEST 2 V HISTORY: COUGH COMPARISON: None. TECHNIQUE: Chest two views. FINDINGS: Lines/tubes: None. Cardiomediastinum: Heart size is upper normal Mildly tortuous aorta with partial calcification. Lungs/pleura: Lungs appear hyperinflated with interstitial coarsening, findings suggestive of COPD. Superimposed patchy consolidative and groundglass infiltrates are seen bilaterally, mostly in the inferior right upper lobe and left more than right lung base. No sizable effusion or evidence of pneumothorax. Vasculature: Normal. Bones/soft tissues: Bony thorax appears grossly intact as seen. IMPRESSION: Bilateral pulmonary infiltrates, concerning for multifocal infectious/inflammator y process; consider atypical infectious process such as COVID 19 pneumonia. Electronically authenticated by: MAYRA WHITESIDE Date: 2022-01-03 03:54 Normal [facility] [place] [facility] Quick Strepon 12-28-2021 S. pyogenes Org specific cx Ql (Throat) Negative Click[facility] Other Quick Strep [facility] Other SARS-CoV-2 (COVID-19) RNA NA A+probe Ql (Resp)on 12-25-2021 SARS-CoV-2 (COVID-19) RNA MURALI+probe Ql (Unsp spec) Negative [facility] Other FK506 (TACROLIMUS) WHOLE BLO ODon 12-08-2021 Tacrolimus (FK506), Blood 6.6 ng/mL Normal 2.0-20.0 [facility] Comment on above: Result Comment: Trou gh (immediately following transplant) 15.0 . Trough (steady state, 2 weeks or more after transplant): 3.0 - 8.0 . Performed by LC-MS/MS technology. Performed By: #### D DAVIDSON, MG, PHOS, CMP, LIPID, URIC #### [facility] [place] [facility] [address] [place] [address] Dr. Sarmad Patino RAPAMUNE(SIROLIMUS)on 2021 Rapamune(Sirolimus) , whole blood 9.6 ng/mL Normal 3.0-20.0 [facility] Comment on above: Result Comment: Perf ormed by LC/MS-MS technology . This test was developed and its performance characteristics determined by [facility]. It has not been cleared or approved by the Food and Drug Administration. Performed By: #### D DAVIDSON, MG, PHOS, CMP, LIPID, URIC #### [facility] [place] [facility] [address] [place] [address] Dr. Sarmad Patino BILIRUBIN CONJUGATED (DIRECT )on 12-05-2021 BILI, CONJUGATED 0.1 mg/dL Normal 0.0-0.2 [facility] Comment on above: Performed By: #### D DAVIDSON, MG, PHOS, CMP, LIPID, URIC #### [facility] [place] [facility] [address] [place] [address] Dr. Sarmad Patino CBC W MANUAL DIFFon 12-06-19 22 ATYPICAL LYMPH # Normal [facility] Comment on above: Performed By: #### D DAVIDSON, MG, PHOS, CMP, LIPID, URIC #### [facility] [place] [facility] [address] [place] [address] Dr. Sarmad Patino ATYPICAL LYMPH % Normal [facility] Comment on above: Performed By: #### D DAVIDSON, MG, PHOS, CMP, LIPID, URIC #### [facility] [place] [facility] [address] [place] [address] Dr. Sarmad Patino BAND # Normal 0.0-0.3 [facility] [place] [facility] Comment on above: Performed By: #### D DAVIDSON, MG, PHOS, CMP, LIPID, URIC #### [facility] [place] [facility] [address] [place] [address] Dr. Sarmad Patino BAND % Normal 0-5 [facility] [place] [facility] Comment on above: Performed By: #### D DAVIDSON, MG, PHOS, CMP, LIPID, URIC #### [facility] [place] [facility] [address] [place] [address] Dr. Sarmad Patino BASOM # 0.00 103/ul Normal 0.00-0.10 [facility] Comment on above: Performed By: #### D DAVIDSON, MG, PHOS, CMP, LIPID, URIC #### [facility] [place] [facility] [address] [address] [address] Sarmad Patino BASOM % 0.0 % Critically low 0.2-2.0 [facility] Comment on above: Performed By: #### D DAVIDSON, MG, PHOS, CMP, LIPID, URIC #### [facility] [place] [facility] [address] [place] [address] Dr. Sarmad Patino BLAST # Normal [facility] Comment on above: Performed By: #### D DAVIDSON, MG, PHOS, CMP, LIPID, URIC #### [facility] [place] [facility] [address] [place] [address] Dr. Sarmad Patino BLAST % Normal [facility] Comment on above: Performed By: #### D DAVIDSON, MG, PHOS, CMP, LIPID, URIC #### [facility] [place] [facility] [address] [place] [address] Dr. Sarmad Patino CORRECTED WBC Normal 4.0-11.0 [facility] Comment on above: Performed By: #### D DAVIDSON, MG, PHOS, CMP, LIPID, URIC #### [facility] [place] [facility] [address] [place] [address] Dr. Sarmad Patino EOS # 0.15 103/ul Normal 0.00-0.70 [facility] Comment on above: Performed By: #### D DAVIDSON, MG, PHOS, CMP, LIPID, URIC #### [facility] [place] [facility] [address] [place] [address] Dr. Sarmad Patino EOS% 2.0 % Normal 0.9-7.0 [facility] Comment on above: Performed By: #### D DAVIDSON, MG, PHOS, CMP, LIPID, URIC #### [facility] [place] [facility] [address] [place] [address] Dr. Sarmad Patino HCT 47.5 % Normal 36.0-48.0 [facility] Comment on above: Performed By: #### D DAVIDSON, MG, PHOS, CMP, LIPID, URIC #### [facility] [place] [facility] [address] [address] [address] Sarmad Patino HGB 15.6 g/dl Normal 12.0-16.0 [facility] Comment on above: Performed By: #### D DAVIDSON, MG, PHOS, CMP, LIPID, URIC #### [facility] [place] [facility] [address] [address] [address] Sarmad Patino LYMPHM # 1.46 103/ul Normal 1.20-3.80 [facility] Comment on above: Performed By: #### D DAVIDSON, MG, PHOS, CMP, LIPID, URIC #### [facility] [place] [facility] [address] [place] [address] Dr. Sarmad Patino LYMPHM% 19.0 % Critically low 20.5-60.0 [facility] Comment on above: Performed By: #### D DAVIDSON, MG, PHOS, CMP, LIPID, URIC #### [facility] [place] [facility] [address] [place] [address] Dr. Sarmad Patino MCH 28.9 pg Normal 26.7-34.0 [facility] Comment on above: Performed By: #### D DAVIDSON, MG, PHOS, CMP, LIPID, URIC #### [facility] [place] [facility] [address] [place] [address] Dr. Sarmad Patino MCHC 32.8 g/dl Normal 29.9-35.2 [facility] Comment on above: Performed By: #### D DAVIDSON, MG, PHOS, CMP, LIPID, URIC #### [facility] [place] [facility] [address] [place] [address] Dr. Sarmad Patino MCV 88.1 fL Normal 81.0-99.0 [facility] Comment on above: Performed By: #### D DAVIDSON, MG, PHOS, CMP, LIPID, URIC #### [facility] [place] [facility] [address] [place] [address] Dr. Sarmad Patino METAMYELOCYTE # Normal [facility] Comment on above: Performed By: #### D DAVIDSON, MG, PHOS, CMP, LIPID, URIC #### [facility] [place] [facility] [address] [place] [address] Dr. Sarmad Patino METAMYELOCYTE % Normal [facility] Comment on above: Performed By: #### D DAVIDSON, MG, PHOS, CMP, LIPID, URIC #### [facility] [place] [facility] [address] [address] [address] Sarmad Patino MONOM# 0.85 103/ul Critically high 0.30-0.80 [facility] Comment on above: Performed By: #### D DAVIDSON, MG, PHOS, CMP, LIPID, URIC #### [facility] [place] [facility] [address] [address] [address] Sarmad Patino MONOM% 11.0 % Normal 1.7-12.0 [facility] Comment on above: Performed By: #### D DAVIDSON, MG, PHOS, CMP, LIPID, URIC #### [facility] [place] [facility] [address] [place] [address] Dr. Sarmad Patino MPV 11.3 fL Normal 9.5-13.5 [facility] Comment on above: Performed By: #### D DAVIDSON, MG, PHOS, CMP, LIPID, URIC #### [facility] [place] [facility] [address] [place] [address] Dr. Sarmad Patino MYELOCYTE # Normal [facility] Comment on above: Performed By: #### D DAVIDSON, MG, PHOS, CMP, LIPID, URIC #### [facility] [place] [facility] [address] [place] [address] Dr. Sarmad Patino MYELOCYTE % Normal [facility] [place] [facility] Comment on above: Performed By: #### D DAVIDSON, MG, PHOS, CMP, LIPID, URIC #### [facility] [place] [facility] [address] [place] [address] Dr. Sarmad Patino NRBC Normal [facility] [place] [facility] Comment on above: Performed By: #### D DAVIDSON, MG, PHOS, CMP, LIPID, URIC #### [facility] [place] [facility] [address] [address] [address] Sarmad Patino PLT 214 103/ul Normal 150-450 [facility] Comment on above: Performed By: #### D DAVIDSON, MG, PHOS, CMP, LIPID, URIC #### [facility] [place] [facility] [address] [address] [address] Sarmad Patino RBC 5.39 106/ul Normal 4.20-5.40 [facility] Comment on above: Performed By: #### D DAVIDSON, MG, PHOS, CMP, LIPID, URIC #### [facility] [place] [facility] [address] [place] [address] Dr. Sarmad Patino RDW 13.8 % Normal 11.0-15.0 [facility] Comment on above: Performed By: #### D DAVIDSON, MG, PHOS, CMP, LIPID, URIC #### [facility] [place] [facility] [address] [place] [address] Dr. Sarmad Patino SEG # 5.24 103/ul Normal 1.40-6.50 [facility] Comment on above: Performed By: #### D DAVIDSON, MG, PHOS, CMP, LIPID, URIC #### [facility] [place] [facility] [address] [place] [address] Dr. Sarmad Patino SEG % 68.0 % Normal 43.0-75.0 [facility] Comment on above: Performed By: #### D DAVIDSON, MG, PHOS, CMP, LIPID, URIC #### [facility] [place] [facility] [address] [place] [address] Dr. Sarmad Patino WBC 7.7 103/ul Normal 4.0-11.0 [facility] Comment on above: Performed By: #### D DAVIDSON, MG, PHOS, CMP, LIPID, URIC #### [facility] [place] [facility] [address] [place] [address] Dr. Sarmad Patino LIPID PROFILEon 12-05-2021 CHOL-HDL RATIO NORM SEE BELOW Normal [facility] Comment on above: Result Comment: 3.3 - 4.4 LOW RISK 4.4 - 7.1 AVERAGE RISK 7.1 - 11.0 MODERATE RISK >11.0 HIGH RISK Performed By: #### D DAVIDSON, MG, PHOS, CMP, LIPID, URIC #### [facility] [place] [facility] [address] [place] [address] Dr. Sarmad Patino Cholesterol [Mass/Vol] 170 mg/dL Normal <=200 [facility] [place] [facility] Comment on above: Performed By: #### D DAVIDSON, MG, PHOS, CMP, LIPID, URIC #### [facility] [place] [facility] [address] [address] [address] Sarmad Patino Cholesterol in HDL [Mass/Vol] 54 mg/dL Normal 40-60 [facility] Comment on above: Performed By: #### D DAVIDSON, MG, PHOS, CMP, LIPID, URIC #### [facility] [place] [facility] [address] [address] [address] Sarmad Patino Cholesterol in LDL [Mass/Vol] 92.2 mg/dL Normal [facility] Comment on above: Performed By: #### D DAVIDSON, MG, PHOS, CMP, LIPID, URIC #### [facility] [place] [facility] [address] [address] [address] Sarmad Patino Cholesterol.total/C holesterol in HDL [Mass ratio] 3.1 {ratio} Normal [facility] Comment on above: Performed By: #### D DAVIDSON, MG, PHOS, CMP, LIPID, URIC #### [facility] [place] [facility] [address] [address] [address] Sarmad Patino HDL NORMAL > or = 60 mg/dl - LO W CARDIOVASCULAR RISK <40 mg/dl - HIGH CARDIOVASCULAR RISK Normal [facility] Comment on above: Performed By: #### D DAVIDSON, MG, PHOS, CMP, LIPID, URIC #### [facility] [place] [facility] [address] [address] [address] Saramd Patino LDL CALC NORMAL SEE BELOW Normal [facility] Comment on above: Result Comment: <100 mg/dl OPTIMAL 100 - 129 mg/dl NEAR OR ABOVE OPTIMAL 130 - 159 mg/dl BORDERLINE HIGH 160 - 189 mg/dl HIGH >190 mg/dl VERY HIGH Performed By: #### D DAVIDSON, MG, PHOS, CMP, LIPID, URIC #### [facility] [place] [facility] [address] [address] [address] Sarmad Patino Triglyceride [Mass/Vol] 119 mg/dL Normal <=150 [facility] Comment on above: Performed By: #### D DAVIDSON, MG, PHOS, CMP, LIPID, URIC #### [facility] [place] [facility] [address] [address] [address] Sarmad Patino VLDL CALC 23.8 mg/dL Normal [facility] Comment on above: Performed By: #### D DAVIDSON, MG, PHOS, CMP, LIPID, URIC #### [facility] [place] [facility] [address] [address] [address] Sarmad Patino MAGNESIUMon 12-05-2021 Magnesium [Mass/Vol] 1.8 mg/dL Normal 1.8-2.4 [facility] Comment on above: Performed By: #### D DAVIDSON, MG, PHOS, CMP, LIPID, URIC #### [facility] [place] [facility] [address] [place] [address] Dr. Sarmad Patino PHOSPHORUSon 12-05-2021 Phosphate [Mass/Vol] 3.8 mg/dL Normal 2.6-4.7 [facility] Comment on above: Performed By: #### D DAVIDSON, MG, PHOS, CMP, LIPID, URIC #### [facility] [place] [facility] [address] [place] [address] Dr. Sarmad Patino PROF 14(COMP METB)on 022 Albumin [Mass/Vol] 3.7 g/dL Normal 3.4-5.0 [facility] Comment on above: Performed By: #### D DAVIDSON, MG, PHOS, CMP, LIPID, URIC #### [facility] [place] [facility] [address] [place] [address] Dr. Sarmad Patino Albumin/Globulin [Mass ratio] 1.0 {ratio} Normal [facility] Comment on above: Performed By: #### D DAVIDSON, MG, PHOS, CMP, LIPID, URIC #### [facility] [place] [facility] [address] [place] [address] Dr. Sarmad Patino ALP [Catalytic activity/Vol] 151 U/L Critically high 46-116 [facility] [place] [facility] Comment on above: Performed By: #### D DAVIDSON, MG, PHOS, CMP, LIPID, URIC #### [facility] [place] [facility] [address] [place] [address] Dr. Sarmad Patino ALT [Catalytic activity/Vol] 27 U/L Normal 14-59 [facility] Comment on above: Performed By: #### D DAVIDSON, MG, PHOS, CMP, LIPID, URIC #### [facility] [place] [facility] [address] [place] [address] Dr. Sarmad Patino Anion gap [Moles/Vol] 14.5 mmol/L Normal [facility] Comment on above: Performed By: #### D DAVIDSON, MG, PHOS, CMP, LIPID, URIC #### [facility] [place] [facility] [address] [place] [address] Dr. Sarmad Patino AST [Catalytic activity/Vol] 25 U/L Normal 15-37 [facility] Comment on above: Performed By: #### D DAVIDSON, MG, PHOS, CMP, LIPID, URIC #### [facility] [place] [facility] [address] [place] [address] Dr. Sarmad Patino Bilirubin [Mass/Vol] 0.4 mg/dL Normal 0.2-1.0 [facility] Comment on above: Performed By: #### D DAVIDSON, MG, PHOS, CMP, LIPID, URIC #### [facility] [place] [facility] [address] [place] [address] Dr. Sarmad Patino Calcium [Mass/Vol] 9.4 mg/dL Normal 8.5-10.1 [facility] Comment on above: Performed By: #### D DAVIDSON, MG, PHOS, CMP, LIPID, URIC #### [facility] [place] [facility] [address] [place] [address] Dr. Sarmad Patino Chloride [Moles/Vol] 103 mmol/L Normal 98-107 [facility] [place] [facility] Comment on above: Performed By: #### D DAVIDSON, MG, PHOS, CMP, LIPID, URIC #### [facility] [place] [facility] [address] [place] [address] Dr. Sarmad Patino CO2 [Moles/Vol] 26.5 mmol/L Normal 21.0-32.0 [facility] Comment on above: Performed By: #### D DAVIDSON, MG, PHOS, CMP, LIPID, URIC #### [facility] [place] [facility] [address] [place] [address] Dr. Sarmad Patino Creatinine [Mass/Vol] 0.87 mg/dL Normal 0.55-1.02 [facility] Comment on above: Performed By: #### D DAVIDSON, MG, PHOS, CMP, LIPID, URIC #### [facility] [place] [facility] [address] [address] [address] Sarmad Patino EGFR-AF NIUEAN >60 Normal >=60 [facility] Comment on above: Performed By: #### D DAVIDSON, MG, PHOS, CMP, LIPID, URIC #### [facility] [place] [facility] [address] [place] [address] Dr. Sarmad Patino EGFR-NON AF NIUEAN >60 Normal >=60 [facility] [place] [facility] Comment on above: Performed By: #### D DAVIDSON, MG, PHOS, CMP, LIPID, URIC #### [facility] [place] [facility] [address] [place] [address] Dr. Sarmad Patino Globulin (S) [Mass/Vol] 3.8 g/dL Normal [facility] Comment on above: Performed By: #### D DAVIDSON, MG, PHOS, CMP, LIPID, URIC #### [facility] [place] [facility] [address] [place] [address] Dr. Sarmad Patino Glucose [Mass/Vol] 104 mg/dL Normal 74-106 [facility] Comment on above: Performed By: #### D DAVIDSON, MG, PHOS, CMP, LIPID, URIC #### [facility] [place] [facility] [address] [place] [address] Dr. Sarmad Patino Potassium [Moles/Vol] 4.0 mmol/L Normal 3.5-5.1 [facility] [place] [facility] Comment on above: Performed By: #### D DAVIDSON, MG, PHOS, CMP, LIPID, URIC #### [facility] [place] [facility] [address] [place] [address] Dr. Sarmad Patino Protein [Mass/Vol] 7.5 g/dL Normal 6.4-8.2 [facility] Comment on above: Performed By: #### D DAVIDSON, MG, PHOS, CMP, LIPID, URIC #### [facility] [place] [facility] [address] [address] [address] Sarmad Patino Sodium [Moles/Vol] 140 mmol/L Normal 136-145 [facility] Comment on above: Performed By: #### D DAVIDSON, MG, PHOS, CMP, LIPID, URIC #### [facility] [place] [facility] [address] [place] [address] Dr. Sarmad Patino Urea nitrogen [Mass/Vol] 19.0 mg/dL Critically high 7.0-18.0 [facility] Comment on above: Performed By: #### D DAVIDSON, MG, PHOS, CMP, LIPID, URIC #### [facility] [place] [facility] [address] [place] [address] Dr. Sarmad Patino Urea nitrogen/Creatinine [Mass ratio] 21.8 mg/mg Normal [facility] [place] [facility] Comment on above: Performed By: #### D DAVIDSON, MG, PHOS, CMP, LIPID, URIC #### [facility] [place] [facility] [address] [address] [address] Sarmad Patino URIC ACID SERUMon 12-05-2021 Urate [Mass/Vol] 5.2 mg/dL Normal 2.6-6.0 [facility] Comment on above: Performed By: #### D DAVIDSON, MG, PHOS, CMP, LIPID, URIC #### [facility] [place] [facility] [address] [address] [address] Sarmad SALAZAROLIMU, WHOLE BLOODon EVEROLIMUS 7.0 ng/mL Normal 3.0-8.0 [facility] Comment on above: Result Comment: Perf ormed by LC-MS/MS technology. Performed By: #### D DAVIDSON, MG, PHOS, CMP, LIPID, URIC #### [facility] [place] [facility] [address] [place] [address] Dr. Sarmad Patino FK506 (TACROLIMUS) WHOLE BLO ODon 11-10-2021 Tacrolimus (FK506), Blood 6.4 ng/mL Normal 2.0-20.0 [facility] Comment on above: Result Comment: Trou gh (immediately following transplant) 15.0 . Trough (steady state, 2 weeks or more after transplant): 3.0 - 8.0 . Performed by LC-MS/MS technology. Performed By: #### D DAVIDSON, MG, PHOS, CMP, LIPID, URIC #### [facility] [place] [facility] [address] [place] [address] Dr. Sarmad Patino BK VIRUS PCR QUANTon 022 BKV DNA QUANT PCR PLASMA Negative Normal Negative [facility] [place] [facility] Comment on above: Result Comment: No B K DNA detected. . The linear range of the assay is 22 - 100,000,000 IU/mL. Performed By: #### U MAXI, LIPID, MG, CMP, DBIL, PHOS #### [facility] [place] [facility] [address] [place] [address] Dr. Sarmad Patino Log10 BKV DNA Plasma Normal [facility] [place] [facility] Comment on above: Performed By: #### U MAXI, LIPID, MG, CMP, DBIL, PHOS #### [facility] [place] [facility] [address] [place] [address] Dr. Sarmad Patino BILIRUBIN CONJUGATED (DIRECT )on 11-07-2021 BILI, CONJUGATED 0.1 mg/dL Normal 0.0-0.2 [facility] Comment on above: Performed By: #### D DAVIDSON, MG, PHOS, CMP, LIPID, URIC #### [facility] [place] [facility] [address] [place] [address] Dr. Sarmad Patino CBC AUTO DIFFon 11-07-2021 BASO # 0.0 103/ul Normal 0.0-0.1 [facility] Comment on above: Performed By: #### D DAVIDSON, MG, PHOS, CMP, LIPID, URIC #### [facility] [place] [facility] [address] [place] [address] Dr. Sarmad Patino Basophils/100 WBC (Bld) 0.3 % Normal 0.2-2.0 [facility] Comment on above: Performed By: #### D DAVIDSON, MG, PHOS, CMP, LIPID, URIC #### [facility] [place] [facility] [address] [place] [address] Dr. Sarmad Patino EO # 0.1 103/ul Normal 0.0-0.7 [facility] [place] [facility] Comment on above: Performed By: #### D DAVIDSON, MG, PHOS, CMP, LIPID, URIC #### [facility] [place] [facility] [address] [place] [address] Dr. Sarmad Patino Eosinophils/100 WBC (Bld) 2.1 % Normal 0.9-7.0 [facility] Comment on above: Performed By: #### D DAVIDSON, MG, PHOS, CMP, LIPID, URIC #### [facility] [place] [facility] [address] [place] [address] Dr. Sarmad Patino Erythrocyte distribution width (RBC) [Ratio] 13.5 % Normal 11.0-15.0 [facility] Comment on above: Performed By: #### D DAVIDSON, MG, PHOS, CMP, LIPID, URIC #### [facility] [place] [facility] [address] [place] [address] Dr. Sarmad Patino Hematocrit (Bld) [Volume fraction] 46.7 % Normal 36.0-48.0 [facility] Comment on above: Performed By: #### D DAVIDSON, MG, PHOS, CMP, LIPID, URIC #### [facility] [place] [facility] [address] [place] [address] Dr. Sarmad Patino Hemoglobin (Bld) [Mass/Vol] 15.1 g/dL Normal 12.0-16.0 [facility] Comment on above: Performed By: #### D DAVIDSON, MG, PHOS, CMP, LIPID, URIC #### [facility] [place] [facility] [address] [place] [address] Dr. Sarmad Patino IG # 0.03 10e3/ul Normal 0.00-0.03 [facility] Comment on above: Performed By: #### D DAVDISON, MG, PHOS, CMP, LIPID, URIC #### [facility] [place] [facility] [address] [place] [address] Dr. Sarmad Patino IG % 0.5 % Normal 0.0-0.5 [facility] Comment on above: Performed By: #### D DAVIDSON, MG, PHOS, CMP, LIPID, URIC #### [facility] [place] [facility] [address] [place] [address] Dr. Sarmad Patino LYMPH # 1.3 103/ul Normal 1.2-3.8 [facility] [place] [facility] Comment on above: Performed By: #### D DAVIDSON, MG, PHOS, CMP, LIPID, URIC #### [facility] [place] [facility] [address] [place] [address] Dr. Sarmad Patino Lymphocytes/100 WBC (Bld) 19.9 % Critically low 20.5-60.0 [facility] Comment on above: Performed By: #### D DAVIDSON, MG, PHOS, CMP, LIPID, URIC #### [facility] [place] [facility] [address] [place] [address] Dr. Sarmad Patino MANUAL DIFF REQ NO Normal [facility] Comment on above: Performed By: #### D DAVIDSON, MG, PHOS, CMP, LIPID, URIC #### [facility] [place] [facility] [address] [place] [address] Dr. Sarmad Patino MCH (RBC) [Entitic mass] 28.6 pg Normal 26.7-34.0 [facility] [place] [facility] Comment on above: Performed By: #### D DAVIDSON, MG, PHOS, CMP, LIPID, URIC #### [facility] [place] [facility] [address] [address] [address] Sarmad Patino MCHC (RBC) [Mass/Vol] 32.3 g/dL Normal 29.9-35.2 [facility] [place] [facility] Comment on above: Performed By: #### D DAVIDSON, MG, PHOS, CMP, LIPID, URIC #### [facility] [place] [facility] [address] [place] [address] Dr. Sarmad Patino MCV (RBC) [Entitic vol] 88.4 fL Normal 81.0-99.0 [facility] Comment on above: Performed By: #### D DAVIDSON, MG, PHOS, CMP, LIPID, URIC #### [facility] [place] [facility] [address] [place] [address] Dr. Sarmad Patino MONO # 0.8 103/ul Normal 0.3-0.8 [facility] [place] [facility] Comment on above: Performed By: #### D DAVIDSON, MG, PHOS, CMP, LIPID, URIC #### [facility] [place] [facility] [address] [place] [address] Dr. Sarmad Patino Monocytes/100 WBC (Bld) 12.9 % Critically high 1.7-12.0 [facility] [place] [facility] Comment on above: Performed By: #### D DAVIDSON, MG, PHOS, CMP, LIPID, URIC #### [facility] [place] [facility] [address] [place] [address] Dr. Sarmad Patino NEUT # 4.0 103/ul Normal 1.4-6.5 [facility] Comment on above: Performed By: #### D DAVIDSON, MG, PHOS, CMP, LIPID, URIC #### [facility] Laboratory [address] [address] [address] Sarmad Patino Neutrophils/100 WBC (Bld) 64.3 % Normal 43.0-75.0 [facility] Comment on above: Performed By: #### D DAVIDSON, MG, PHOS, CMP, LIPID, URIC #### [facility] [address] [address] [address] Sarmad Patino Platelet mean volume (Bld) [Entitic vol] 11.3 fL Normal 9.5-13.5 [facility] Comment on above: Performed By: #### D DAVIDSON, MG, PHOS, CMP, LIPID, URIC #### [facility] [address] [address] [address] Sarmad Patino PLT 241 103/ul Normal 150-450 [facility] Comment on above: Performed By: #### D DAVIDSON, MG, PHOS, CMP, LIPID, URIC #### [facility] [address] [place] [address] Dr. Sarmad Patino RBC 5.28 106/ul Normal 4.20-5.40 [facility] Comment on above: Performed By: #### D DAVIDSON, MG, PHOS, CMP, LIPID, URIC #### [facility] [address] [place] [address] Dr. Sarmad Patino WBC 6.3 103/ul Normal 4.0-11.0 [facility] Comment on above: Performed By: #### D DAVIDSON, MG, PHOS, CMP, LIPID, URIC #### [facility] [address] [place] [address] Dr. Sarmad Patino GLYCOHEMOGLOBIN A1Con 2021 ADA RECOMMENDATION SEE BELOW Normal [facility] Comment on above: Result Comment: ADA RECOMMENDED LIMIT 4.0 - 6.0 ADA THERAPEUTIC TARGET < 7.0 ACTION SUGGESTED > 7.0 Performed By: #### D DAVIDSON, MG, PHOS, CMP, LIPID, URIC #### [facility] [address] [place] [address] Dr. Sarmad Patino Glucose [Mass/Vol] 120 mg/dL Normal [facility] Comment on above: Performed By: #### D DAVIDSON, MG, PHOS, CMP, LIPID, URIC #### [facility] [address] [address] [address] Sarmad Patino HbA1c (Bld) [Mass fraction] 5.8 % Normal 4.5-6.2 [facility] Comment on above: Performed By: #### D DAVIDSON, MG, PHOS, CMP, LIPID, URIC #### [facility] [address] [address] [address] Sarmad Patino LIPID PROFILEon 11-07-2021 CHOL-HDL RATIO NORM SEE BELOW Normal [facility] Comment on above: Result Comment: 3.3 - 4.4 LOW RISK 4.4 - 7.1 AVERAGE RISK 7.1 - 11.0 MODERATE RISK >11.0 HIGH RISK Performed By: #### D DAVIDSON, MG, PHOS, CMP, LIPID, URIC #### [facility] [address] [place] [address] Dr. Sarmad Patino Cholesterol [Mass/Vol] 157 mg/dL Normal <=200 [facility] Comment on above: Performed By: #### D DAVIDSON, MG, PHOS, CMP, LIPID, URIC #### [facility] [address] [address] [address] Sarmad Patino Cholesterol in HDL [Mass/Vol] 48 mg/dL Normal 40-60 [facility] Comment on above: Performed By: #### D DAVIDSON, MG, PHOS, CMP, LIPID, URIC #### [facility] [address] [address] [address] Sarmad Patino Cholesterol in LDL [Mass/Vol] 89.6 mg/dL Normal [facility] Comment on above: Performed By: #### D DAVIDSON, MG, PHOS, CMP, LIPID, URIC #### [facility] [address] [address] [address] Sarmad Patino Cholesterol.total/C holesterol in HDL [Mass ratio] 3.3 {ratio} Normal [facility] Comment on above: Performed By: #### D DAVIDSON, MG, PHOS, CMP, LIPID, URIC #### [facility] [address] [place] [address] Dr. Sarmad Patino HDL NORMAL > or = 60 mg/dl - LO W CARDIOVASCULAR RISK <40 mg/dl - HIGH CARDIOVASCULAR RISK Normal [facility] Comment on above: Performed By: #### D DAVIDSON, MG, PHOS, CMP, LIPID, URIC #### [facility] [address] [address] [address] Sarmad Patino LDL CALC NORMAL SEE BELOW Normal [facility] Comment on above: Result Comment: <100 mg/dl OPTIMAL 100 - 129 mg/dl NEAR OR ABOVE OPTIMAL 130 - 159 mg/dl BORDERLINE HIGH 160 - 189 mg/dl HIGH >190 mg/dl VERY HIGH Performed By: #### D DAVIDSON, MG, PHOS, CMP, LIPID, URIC #### [facility] [address] [address] [address] Sarmad Patino Triglyceride [Mass/Vol] 97 mg/dL Normal <=150 [facility] Comment on above: Performed By: #### D DAVIDSON, MG, PHOS, CMP, LIPID, URIC #### [facility] [address] [address] [address] Sarmad Patino VLDL CALC 19.4 mg/dL Normal [facility] Comment on above: Performed By: #### D DAVIDSON, MG, PHOS, CMP, LIPID, URIC #### [facility] [address] [address] [address] Sarmad Patino MAGNESIUMon 11-07-2021 Magnesium [Mass/Vol] 1.9 mg/dL Normal 1.8-2.4 [facility] Comment on above: Performed By: #### D DAVIDSON, MG, PHOS, CMP, LIPID, URIC #### [facility] [address] [address] [address] Sarmad Patino PHOSPHORUSon 11-07-2021 Phosphate [Mass/Vol] 3.4 mg/dL Normal 2.6-4.7 [facility] Comment on above: Performed By: #### D DAVIDSON, MG, PHOS, CMP, LIPID, URIC #### [facility] [address] [place] [address] Dr. Sarmad Patino PROF 14(COMP METB)on 022 Albumin [Mass/Vol] 3.6 g/dL Normal 3.4-5.0 [facility] Comment on above: Performed By: #### D DAVIDSON, MG, PHOS, CMP, LIPID, URIC #### [facility] [address] [address] [address] Sarmad Patino Albumin/Globulin [Mass ratio] 0.9 {ratio} Normal [facility] Comment on above: Performed By: #### D DAVIDSON, MG, PHOS, CMP, LIPID, URIC #### [facility] [address] [address] [address] Sarmad Patino ALP [Catalytic activity/Vol] 158 U/L Critically high 46-116 [facility] Comment on above: Performed By: #### D DAVIDSON, MG, PHOS, CMP, LIPID, URIC #### [facility] [address] [place] [address] Dr. Sarmad Patino ALT [Catalytic activity/Vol] 23 U/L Normal 14-59 [facility] Comment on above: Performed By: #### D DAVIDSON, MG, PHOS, CMP, LIPID, URIC #### [facility] [address] [address] [address] Sarmad Patino Anion gap [Moles/Vol] 14.8 mmol/L Normal [facility] Comment on above: Performed By: #### D DAVIDSON, MG, PHOS, CMP, LIPID, URIC #### [facility] [address] [place] [address] Dr. Sarmad Patino AST [Catalytic activity/Vol] 18 U/L Normal 15-37 [facility] Comment on above: Performed By: #### D DAVIDSON, MG, PHOS, CMP, LIPID, URIC #### [facility] [address] [address] [address] Sarmad Patino Bilirubin [Mass/Vol] 0.4 mg/dL Normal 0.2-1.0 [facility] Comment on above: Performed By: #### D DAVIDSON, MG, PHOS, CMP, LIPID, URIC #### [facility] [address] [address] [address] Sarmad Patino Calcium [Mass/Vol] 9.3 mg/dL Normal 8.5-10.1 [facility] Comment on above: Performed By: #### D DAVIDSON, MG, PHOS, CMP, LIPID, URIC #### [facility] [address] [address] [address] Sarmad Patino Chloride [Moles/Vol] 105 mmol/L Normal 98-107 [facility] Comment on above: Performed By: #### D DAVIDSON, MG, PHOS, CMP, LIPID, URIC #### [facility] [address] [address] [address] Sarmad Patino CO2 [Moles/Vol] 26.1 mmol/L Normal 21.0-32.0 [facility] Comment on above: Performed By: #### D DAVIDSON, MG, PHOS, CMP, LIPID, URIC #### [facility] [address] [place] [address] Dr. Sarmad Patino Creatinine [Mass/Vol] 0.84 mg/dL Normal 0.55-1.02 [facility] Comment on above: Performed By: #### D DAVIDSON, MG, PHOS, CMP, LIPID, URIC #### [facility] [address] [address] [address] Sarmad Patino EGFR-AF NIUEAN >60 Normal >=60 [facility] Comment on above: Performed By: #### D DAVIDSON, MG, PHOS, CMP, LIPID, URIC #### [facility] [address] [place] [address] Dr. Sarmad Patino EGFR-NON AF NIUEAN >60 Normal >=60 [facility] Comment on above: Performed By: #### D DAVIDSON, MG, PHOS, CMP, LIPID, URIC #### [facility] [address] [address] [address] Sarmad Patino Globulin (S) [Mass/Vol] 3.8 g/dL Normal [facility] Comment on above: Performed By: #### D DAVIDSON, MG, PHOS, CMP, LIPID, URIC #### [facility] [address] [address] [address] Sarmad Patino Glucose [Mass/Vol] 97 mg/dL Normal 74-106 [facility] Comment on above: Performed By: #### D DAVIDSON, MG, PHOS, CMP, LIPID, URIC #### [facility] [address] [address] [address] Sarmad Patino Potassium [Moles/Vol] 3.9 mmol/L Normal 3.5-5.1 [facility] Comment on above: Performed By: #### D DAVIDSON, MG, PHOS, CMP, LIPID, URIC #### [facility] [address] [place] [address] Dr. Sarmad Patino Protein [Mass/Vol] 7.4 g/dL Normal 6.4-8.2 [facility] Comment on above: Performed By: #### D DAVIDSON, MG, PHOS, CMP, LIPID, URIC #### [facility] [address] [place] [address] Dr. Sarmad Patino Sodium [Moles/Vol] 142 mmol/L Normal 136-145 [facility] Comment on above: Performed By: #### D DAVIDSON, MG, PHOS, CMP, LIPID, URIC #### [facility] [address] [place] [address] Dr. Sarmad Patino Urea nitrogen [Mass/Vol] 21.0 mg/dL Critically high 7.0-18.0 [facility] Comment on above: Performed By: #### D DAVIDSON, MG, PHOS, CMP, LIPID, URIC #### [facility] [address] [place] [address] Dr. Sarmad Patino Urea nitrogen/Creatinine [Mass ratio] 25.0 mg/mg Normal [facility] Comment on above: Performed By: #### D DAVIDSON, MG, PHOS, CMP, LIPID, URIC #### [facility] [address] [place] [address] Dr. Sarmad Patino URIC ACID SERUMon 11-07-2021 Urate [Mass/Vol] 5.1 mg/dL Normal 2.6-6.0 [facility] Comment on above: Performed By: #### D DAVIDSON, MG, PHOS, CMP, LIPID, URIC #### [facility] [address] [place] [address] Dr. Sarmad Patino BOX TEST SENT OUTon 10-16-19 22 SENT TO REF LAB 10/15/2021 Normal [facility] Comment on above: Performed By: #### D DAVIDSON, MG, PHOS, CMP, LIPID, URIC #### [facility] [address] [place] [address] Dr. Sarmad Patino EVEROLIMU, WHOLE BLOODon EVEROLIMUS 6.7 ng/mL Normal 3.0-8.0 [facility] Comment on above: Result Comment: Perf ormed by LC-MS/MS technology. Performed By: #### D DAVIDSON, MG, PHOS, CMP, LIPID, URIC #### [facility] [address] [address] [address] Sarmad Patino FK506 (TACROLIMUS) WHOLE BLO ODon 10-10-2021 Tacrolimus (FK506), Blood 5.9 ng/mL Normal 2.0-20.0 [facility] Comment on above: Result Comment: Trou gh (immediately following transplant) 15.0 . Trough (steady state, 2 weeks or more after transplant): 3.0 - 8.0 . Performed by LC-MS/MS technology. Performed By: #### D DAVIDSON, MG, PHOS, CMP, LIPID, URIC #### [facility] [address] [place] [address] Dr. Sarmad Patino BILIRUBIN CONJUGATED (DIRECT )on 10-08-2021 BILI, CONJUGATED 0.1 mg/dL Normal 0.0-0.2 [facility] Comment on above: Performed By: #### U MAXI, LIPID, MG, CMP, DBIL, PHOS #### [facility] [address] [address] [address] Sarmad Patino CBC AUTO DIFFon 10-08-2021 BASO # 0.0 103/ul Normal 0.0-0.1 [facility] Comment on above: Performed By: #### D DAVIDSON, MG, PHOS, CMP, LIPID, URIC #### [facility] [address] [place] [address] Dr. Sarmad Patino Basophils/100 WBC (Bld) 0.1 % Critically low 0.2-2.0 [facility] Comment on above: Performed By: #### D DAVIDSON, MG, PHOS, CMP, LIPID, URIC #### [facility] [address] [address] [address] Sarmad Patino EO # 0.1 103/ul Normal 0.0-0.7 [facility] Comment on above: Performed By: #### D DAVIDSON, MG, PHOS, CMP, LIPID, URIC #### [facility] [address] [place] [address] Dr. Sarmad Patino Eosinophils/100 WBC (Bld) 1.4 % Normal 0.9-7.0 [facility] Comment on above: Performed By: #### D DAVIDSON, MG, PHOS, CMP, LIPID, URIC #### [facility] [address] [place] [address] Dr. Sarmad Patino Erythrocyte distribution width (RBC) [Ratio] 13.6 % Normal 11.0-15.0 [facility] Comment on above: Performed By: #### D DAVIDSON, MG, PHOS, CMP, LIPID, URIC #### [facility] [address] [place] [address] Dr. Sarmad Patino Hematocrit (Bld) [Volume fraction] 47.5 % Normal 36.0-48.0 [facility] Comment on above: Performed By: #### D DAVIDSON, MG, PHOS, CMP, LIPID, URIC #### [facility] [address] [place] [address] Dr. Sarmad Patino Hemoglobin (Bld) [Mass/Vol] 15.7 g/dL Normal 12.0-16.0 [facility] Comment on above: Performed By: #### D DAVIDSON, MG, PHOS, CMP, LIPID, URIC #### [facility] [address] [place] [address] Dr. Sarmad Patino IG # 0.04 10e3/ul Critically high 0.00-0.03 [facility] Comment on above: Performed By: #### D DAVIDSON, MG, PHOS, CMP, LIPID, URIC #### [facility] [address] [place] [address] Dr. Sarmad Patino IG % 0.5 % Normal 0.0-0.5 [facility] Comment on above: Performed By: #### D DAVIDSON, MG, PHOS, CMP, LIPID, URIC #### [facility] [address] [place] [address] Dr. Sarmad Patino LYMPH # 1.3 103/ul Normal 1.2-3.8 [facility] Comment on above: Performed By: #### D DAVIDSON, MG, PHOS, CMP, LIPID, URIC #### [facility] [address] [place] [address] Dr. Sarmad Patino Lymphocytes/100 WBC (Bld) 15.4 % Critically low 20.5-60.0 [facility] Comment on above: Performed By: #### D DAVIDSON, MG, PHOS, CMP, LIPID, URIC #### [facility] [address] [place] [address] Dr. Sarmad Patino MANUAL DIFF REQ NO Normal [facility] Comment on above: Performed By: #### D DAVIDSON, MG, PHOS, CMP, LIPID, URIC #### [facility] [address] [place] [address] Dr. Sarmad Patino MCH (RBC) [Entitic mass] 29.1 pg Normal 26.7-34.0 [facility] Comment on above: Performed By: #### D DAVIDSON, MG, PHOS, CMP, LIPID, URIC #### [facility] [address] [place] [address] Dr. Sarmad Patino MCHC (RBC) [Mass/Vol] 33.1 g/dL Normal 29.9-35.2 [facility] Comment on above: Performed By: #### D DAVIDSON, MG, PHOS, CMP, LIPID, URIC #### [facility] [address] [place] [address] Dr. Sarmad Patino MCV (RBC) [Entitic vol] 88.0 fL Normal 81.0-99.0 [facility] Comment on above: Performed By: #### D DAVIDSON, MG, PHOS, CMP, LIPID, URIC #### [facility] [address] [place] [address] Dr. Sarmad Patino MONO # 0.9 103/ul Critically high 0.3-0.8 [facility] Comment on above: Performed By: #### D DAVIDSON, MG, PHOS, CMP, LIPID, URIC #### [facility] [address] [place] [address] Dr. Sarmad Patino Monocytes/100 WBC (Bld) 10.2 % Normal 1.7-12.0 [facility] Comment on above: Performed By: #### D DAVIDSON, MG, PHOS, CMP, LIPID, URIC #### [facility] [address] [address] [address] Sarmad Patino NEUT # 6.1 103/ul Normal 1.4-6.5 [facility] Comment on above: Performed By: #### D DAVIDSON, MG, PHOS, CMP, LIPID, URIC #### [facility] [address] [place] [address] Dr. Sarmad Patino Neutrophils/100 WBC (Bld) 72.4 % Normal 43.0-75.0 [facility] Comment on above: Performed By: #### D DAVIDSON, MG, PHOS, CMP, LIPID, URIC #### [facility] [address] [place] [address] Dr. Sarmad Patino Platelet mean volume (Bld) [Entitic vol] 11.1 fL Normal 9.5-13.5 [facility] Comment on above: Performed By: #### D DAVIDSON, MG, PHOS, CMP, LIPID, URIC #### [facility] [address] [place] [address] Dr. Sarmad Patino PLT 213 103/ul Normal 150-450 [facility] Comment on above: Performed By: #### D DAVIDSON, MG, PHOS, CMP, LIPID, URIC #### [facility] [address] [address] [address] Sarmad Patino RBC 5.40 106/ul Normal 4.20-5.40 [facility] Comment on above: Performed By: #### D DAVIDSON, MG, PHOS, CMP, LIPID, URIC #### [facility] [address] [place] [address] Dr. Sarmad Patino WBC 8.4 103/ul Normal 4.0-11.0 [facility] Comment on above: Performed By: #### D DAVIDSON, MG, PHOS, CMP, LIPID, URIC #### [facility] [address] [address] [address] Sarmad Patino LIPID PROFILEon 10-08-2021 CHOL-HDL RATIO NORM SEE BELOW Normal [facility] Comment on above: Result Comment: 3.3 - 4.4 LOW RISK 4.4 - 7.1 AVERAGE RISK 7.1 - 11.0 MODERATE RISK >11.0 HIGH RISK Performed By: #### D DAVIDSON, MG, PHOS, CMP, LIPID, URIC #### [facility] [address] [address] [address] Sarmad Patino Cholesterol [Mass/Vol] 155 mg/dL Normal <=200 [facility] Comment on above: Performed By: #### D DAVIDSON, MG, PHOS, CMP, LIPID, URIC #### [facility] [address] [address] [address] Sarmad Patino Cholesterol in HDL [Mass/Vol] 49 mg/dL Normal 40-60 [facility] Comment on above: Performed By: #### D DAVIDSON, MG, PHOS, CMP, LIPID, URIC #### [facility] [address] [address] [address] Sarmad Patino Cholesterol in LDL [Mass/Vol] 73.8 mg/dL Normal [facility] Comment on above: Performed By: #### D DAVIDSON, MG, PHOS, CMP, LIPID, URIC #### [facility] [address] [address] [address] Sarmad Patino Cholesterol.total/C holesterol in HDL [Mass ratio] 3.2 {ratio} Normal [facility] Comment on above: Performed By: #### D DAVIDSON, MG, PHOS, CMP, LIPID, URIC #### [facility] [address] [address] [address] Sarmad Patino HDL NORMAL > or = 60 mg/dl - LO W CARDIOVASCULAR RISK <40 mg/dl - HIGH CARDIOVASCULAR RISK Normal [facility] Comment on above: Performed By: #### D DAVIDSON, MG, PHOS, CMP, LIPID, URIC #### [facility] [address] [address] [address] Sarmad Patino LDL CALC NORMAL SEE BELOW Normal [facility] Comment on above: Result Comment: <100 mg/dl OPTIMAL 100 - 129 mg/dl NEAR OR ABOVE OPTIMAL 130 - 159 mg/dl BORDERLINE HIGH 160 - 189 mg/dl HIGH >190 mg/dl VERY HIGH Performed By: #### D DAVIDSON, MG, PHOS, CMP, LIPID, URIC #### [facility] [address] [address] [address] Sarmad Patino Triglyceride [Mass/Vol] 161 mg/dL Critically high <=150 [facility] Comment on above: Performed By: #### D DAVIDSON, MG, PHOS, CMP, LIPID, URIC #### [facility] [address] [address] [address] Sarmad Patino VLDL CALC 32.2 mg/dL Normal [facility] Comment on above: Performed By: #### D DAVIDSON, MG, PHOS, CMP, LIPID, URIC #### [facility] [address] [address] [address] Sarmad Patino MAGNESIUMon 10-08-2021 Magnesium [Mass/Vol] 1.6 mg/dL Critically low 1.8-2.4 [facility] Comment on above: Performed By: #### U MAXI, LIPID, MG, CMP, DBIL, PHOS #### [facility] [address] [address] [address] Sarmad Patino PHOSPHORUSon 10-08-2021 Phosphate [Mass/Vol] 3.5 mg/dL Normal 2.6-4.7 [facility] Comment on above: Performed By: #### U MAXI, LIPID, MG, CMP, DBIL, PHOS #### [facility] [address] [address] [address] Sarmad Patino PROF 14(COMP METB)on 022 Albumin [Mass/Vol] 3.6 g/dL Normal 3.4-5.0 [facility] Comment on above: Performed By: #### D DAVIDSON, MG, PHOS, CMP, LIPID, URIC #### [facility] [address] [place] [address] Dr. Sarmad Patino Albumin/Globulin [Mass ratio] 0.9 {ratio} Normal [facility] Comment on above: Performed By: #### D DAVIDSON, MG, PHOS, CMP, LIPID, URIC #### [facility] [address] [place] [address] Dr. Sarmad Patino ALP [Catalytic activity/Vol] 150 U/L Critically high 46-116 [facility] Comment on above: Performed By: #### D DAVIDSON, MG, PHOS, CMP, LIPID, URIC #### [facility] [address] [place] [address] Dr. Sarmad Patino ALT [Catalytic activity/Vol] 21 U/L Normal 14-59 [facility] Comment on above: Performed By: #### D DAVIDSON, MG, PHOS, CMP, LIPID, URIC #### [facility] [address] [place] [address] Dr. Sarmad Patino Anion gap [Moles/Vol] 14.0 mmol/L Normal [facility] Comment on above: Performed By: #### D DAVIDSON, MG, PHOS, CMP, LIPID, URIC #### [facility] [address] [place] [address] Dr. Sarmad Patino AST [Catalytic activity/Vol] 13 U/L Critically low 15-37 [facility] Comment on above: Performed By: #### D DAVIDSON, MG, PHOS, CMP, LIPID, URIC #### [facility] [address] [place] [address] Dr. Sarmad Patino Bilirubin [Mass/Vol] 0.5 mg/dL Normal 0.2-1.0 [facility] Comment on above: Performed By: #### D DAVIDSON, MG, PHOS, CMP, LIPID, URIC #### [facility] [address] [place] [address] Dr. Sarmad Patino Calcium [Mass/Vol] 9.8 mg/dL Normal 8.5-10.1 [facility] Comment on above: Performed By: #### D DAVIDSON, MG, PHOS, CMP, LIPID, URIC #### [facility] [address] [place] [address] Dr. Sarmad Patino Chloride [Moles/Vol] 105 mmol/L Normal 98-107 [facility] Comment on above: Performed By: #### D DAVIDSON, MG, PHOS, CMP, LIPID, URIC #### [facility] [address] [address] [address] Sarmad Patino CO2 [Moles/Vol] 25.9 mmol/L Normal 21.0-32.0 [facility] Comment on above: Performed By: #### D DAVIDSON, MG, PHOS, CMP, LIPID, URIC #### [facility] [address] [address] [address] Sarmad Patino Creatinine [Mass/Vol] 0.81 mg/dL Normal 0.55-1.02 [facility] Comment on above: Performed By: #### D DAVIDSON, MG, PHOS, CMP, LIPID, URIC #### [facility] [address] [address] [address] Sarmad Patino EGFR-AF NIUEAN >60 Normal >=60 [facility] Comment on above: Performed By: #### D DAVIDSON, MG, PHOS, CMP, LIPID, URIC #### [facility] [address] [address] [address] Sarmad Patino EGFR-NON AF NIUEAN >60 Normal >=60 [facility] Comment on above: Performed By: #### D DAVIDSON, MG, PHOS, CMP, LIPID, URIC #### [facility] [address] [address] [address] Sarmad Patino Globulin (S) [Mass/Vol] 3.8 g/dL Normal [facility] Comment on above: Performed By: #### D DAVIDSON, MG, PHOS, CMP, LIPID, URIC #### [facility] [address] [address] [address] Sarmad Patino Glucose [Mass/Vol] 101 mg/dL Normal 74-106 [facility] Comment on above: Performed By: #### D DAVIDSON, MG, PHOS, CMP, LIPID, URIC #### [facility] [address] [address] [address] Sarmad Patino Potassium [Moles/Vol] 3.9 mmol/L Normal 3.5-5.1 [facility] Comment on above: Performed By: #### D DAVIDSON, MG, PHOS, CMP, LIPID, URIC #### [facility] [address] [address] [address] Sarmad Patino Protein [Mass/Vol] 7.4 g/dL Normal 6.4-8.2 [facility] Comment on above: Performed By: #### D DAVIDSON, MG, PHOS, CMP, LIPID, URIC #### [facility] [address] [address] [address] Sarmad Patino Sodium [Moles/Vol] 141 mmol/L Normal 136-145 [facility] Comment on above: Performed By: #### D DAVIDSON, MG, PHOS, CMP, LIPID, URIC #### [facility] [address] [place] [address] Dr. Sarmad Patino Urea nitrogen [Mass/Vol] 18.0 mg/dL Normal 7.0-18.0 [facility] Comment on above: Performed By: #### D DAVIDSON, MG, PHOS, CMP, LIPID, URIC #### [facility] [address] [place] [address] Dr. Sarmad Patino Urea nitrogen/Creatinine [Mass ratio] 22.2 mg/mg Normal [facility] Comment on above: Performed By: #### D DAVIDSON, MG, PHOS, CMP, LIPID, URIC #### [facility] [address] [place] [address] Dr. Sarmad Patino URIC ACID SERUMon 10-08-2021 Urate [Mass/Vol] 4.7 mg/dL Normal 2.6-6.0 [facility] Comment on above: Performed By: #### D DAVIDSON, MG, PHOS, CMP, LIPID, URIC #### [facility] [address] [place] [address] Dr. Sarmad CHRISTIEMU, WHOLE BLOODon EVEROLIMUS 8.0 ng/mL Normal 3.0-8.0 [facility] Comment on above: Result Comment: Perf ormed by LC-MS/MS technology. Performed By: #### U MAXI, LIPID, MG, CMP, DBIL, PHOS #### [facility] [address] [address] [address] Sarmad Patino FK506 (TACROLIMUS) WHOLE BLO ODon 09-14-2021 Tacrolimus (FK506), Blood 9.3 ng/mL Normal 2.0-20.0 [facility] Comment on above: Result Comment: Trou gh (immediately following transplant) 15.0 . Trough (steady state, 2 weeks or more after transplant): 3.0 - 8.0 . Performed by LC-MS/MS technology. Performed By: #### U MAXI, LIPID, MG, CMP, DBIL, PHOS #### [facility] [address] [place] [address] Dr. Sarmad Patino BK VIRUS PCR QUANTon 022 BKV DNA QUANT PCR PLASMA Negative Normal Negative [facility] Comment on above: Result Comment: No B K DNA detected. . The linear range of the assay is 22 - 100,000,000 IU/mL. Performed By: #### D DAVIDSON, MG, PHOS, CMP, LIPID, URIC #### [facility] [address] [place] [address] Dr. Sarmad Patino Log10 BKV DNA Plasma Normal [facility] Comment on above: Performed By: #### D DAVIDSON, MG, PHOS, CMP, LIPID, URIC #### [facility] [address] [place] [address] Dr. Sarmad Patino BILIRUBIN CONJUGATED (DIRECT )on 09-10-2021 BILI, CONJUGATED 0.1 mg/dL Normal 0.0-0.2 [facility] Comment on above: Performed By: #### D DAVIDSON, MG, PHOS, CMP, LIPID, URIC #### [facility] [address] [place] [address] Dr. Sarmad Patino CBC AUTO DIFFon 09-10-2021 BASO # 0.0 103/ul Normal 0.0-0.1 [facility] Comment on above: Performed By: #### D DAVIDSON, MG, PHOS, CMP, LIPID, URIC #### [facility] [address] [place] [address] Dr. Sarmad Patino Basophils/100 WBC (Bld) 0.1 % Critically low 0.2-2.0 [facility] Comment on above: Performed By: #### D DAVIDSON, MG, PHOS, CMP, LIPID, URIC #### [facility] [address] [place] [address] Dr. Sarmad Patino EO # 0.2 103/ul Normal 0.0-0.7 [facility] Comment on above: Performed By: #### D DAVIDSON, MG, PHOS, CMP, LIPID, URIC #### [facility] [address] [place] [address] Dr. Sarmad Patino Eosinophils/100 WBC (Bld) 2.3 % Normal 0.9-7.0 [facility] Comment on above: Performed By: #### D DAVIDSON, MG, PHOS, CMP, LIPID, URIC #### [facility] [address] [place] [address] Dr. Sarmad Patino Erythrocyte distribution width (RBC) [Ratio] 13.6 % Normal 11.0-15.0 [facility] Comment on above: Performed By: #### D DAVIDSON, MG, PHOS, CMP, LIPID, URIC #### [facility] [address] [place] [address] Dr. Sarmad Patino Hematocrit (Bld) [Volume fraction] 45.1 % Normal 36.0-48.0 [facility] Comment on above: Performed By: #### D DAVIDSON, MG, PHOS, CMP, LIPID, URIC #### [facility] [address] [place] [address] Dr. Sarmad Patino Hemoglobin (Bld) [Mass/Vol] 14.7 g/dL Normal 12.0-16.0 [facility] Comment on above: Performed By: #### D DAVIDSON, MG, PHOS, CMP, LIPID, URIC #### [facility] [address] [place] [address] Dr. Sarmad Patino IG # 0.03 10e3/ul Normal 0.00-0.03 [facility] Comment on above: Performed By: #### D DAVIDSON, MG, PHOS, CMP, LIPID, URIC #### [facility] [address] [address] [address] Sarmad Patino IG % 0.4 % Normal 0.0-0.5 [facility] Comment on above: Performed By: #### D DAVIDSON, MG, PHOS, CMP, LIPID, URIC #### [facility] [address] [address] [address] Sarmad Patino LYMPH # 1.3 103/ul Normal 1.2-3.8 [facility] Comment on above: Performed By: #### D DAVIDSON, MG, PHOS, CMP, LIPID, URIC #### [facility] [address] [place] [address] Dr. Sarmad Patino Lymphocytes/100 WBC (Bld) 18.9 % Critically low 20.5-60.0 [facility] Comment on above: Performed By: #### D DAVIDSON, MG, PHOS, CMP, LIPID, URIC #### [facility] [address] [place] [address] Dr. Sarmad Patino MANUAL DIFF REQ NO Normal [facility] Comment on above: Performed By: #### D DAVIDSON, MG, PHOS, CMP, LIPID, URIC #### [facility] [address] [address] [address] Sarmad Patino MCH (RBC) [Entitic mass] 29.0 pg Normal 26.7-34.0 [facility] Comment on above: Performed By: #### D DAVIDSON, MG, PHOS, CMP, LIPID, URIC #### [facility] [address] [place] [address] Dr. Sarmad Patino MCHC (RBC) [Mass/Vol] 32.6 g/dL Normal 29.9-35.2 [facility] Comment on above: Performed By: #### D DAVIDSON, MG, PHOS, CMP, LIPID, URIC #### [facility] [address] [place] [address] Dr. Sarmad Patino MCV (RBC) [Entitic vol] 89.0 fL Normal 81.0-99.0 [facility] Comment on above: Performed By: #### D DAVIDSON, MG, PHOS, CMP, LIPID, URIC #### [facility] [address] [place] [address] Dr. Sarmad Patino MONO # 0.8 103/ul Normal 0.3-0.8 [facility] Comment on above: Performed By: #### D DAVIDSON, MG, PHOS, CMP, LIPID, URIC #### [facility] [address] [place] [address] Dr. Sarmad Patino Monocytes/100 WBC (Bld) 11.9 % Normal 1.7-12.0 [facility] Comment on above: Performed By: #### D DAVIDSON, MG, PHOS, CMP, LIPID, URIC #### [facility] [address] [place] [address] Dr. Sarmad Patino NEUT # 4.6 103/ul Normal 1.4-6.5 [facility] Comment on above: Performed By: #### D DAVIDSON, MG, PHOS, CMP, LIPID, URIC #### [facility] [address] [place] [address] Dr. Sarmad Patino Neutrophils/100 WBC (Bld) 66.4 % Normal 43.0-75.0 [facility] Comment on above: Performed By: #### D DAVIDSON, MG, PHOS, CMP, LIPID, URIC #### [facility] [address] [place] [address] Dr. Sarmad Patino Platelet mean volume (Bld) [Entitic vol] 10.6 fL Normal 9.5-13.5 [facility] Comment on above: Performed By: #### D DAVIDSON, MG, PHOS, CMP, LIPID, URIC #### [facility] [address] [place] [address] Dr. Sarmad Patino PLT 233 103/ul Normal 150-450 [facility] Comment on above: Performed By: #### D DAVIDSON, MG, PHOS, CMP, LIPID, URIC #### [facility] [address] [place] [address] Dr. Sarmad Patino RBC 5.07 106/ul Normal 4.20-5.40 [facility] Comment on above: Performed By: #### D DAVIDSON, MG, PHOS, CMP, LIPID, URIC #### [facility] [address] [address] [address] Sarmad Patino WBC 6.9 103/ul Normal 4.0-11.0 [facility] Comment on above: Performed By: #### D DAVIDSON, MG, PHOS, CMP, LIPID, URIC #### [facility] [address] [address] [address] Sarmad Patino GLYCOHEMOGLOBIN A1Con 2021 ADA RECOMMENDATION SEE BELOW Normal [facility] Comment on above: Result Comment: ADA RECOMMENDED LIMIT 4.0 - 6.0 ADA THERAPEUTIC TARGET < 7.0 ACTION SUGGESTED > 7.0 Performed By: #### D DAVIDSON, MG, PHOS, CMP, LIPID, URIC #### [facility] [address] [address] [address] Sarmad Patino Glucose [Mass/Vol] 120 mg/dL Normal [facility] Comment on above: Performed By: #### D DAVIDSON, MG, PHOS, CMP, LIPID, URIC #### [facility] [address] [address] [address] Sarmad Patino HbA1c (Bld) [Mass fraction] 5.8 % Normal 4.5-6.2 [facility] Comment on above: Performed By: #### D DAVIDSON, MG, PHOS, CMP, LIPID, URIC #### [facility] [address] [place] [address] Dr. Sarmad Patino LIPID PROFILEon 09-10-2021 CHOL-HDL RATIO NORM SEE BELOW Normal [facility] Comment on above: Result Comment: 3.3 - 4.4 LOW RISK 4.4 - 7.1 AVERAGE RISK 7.1 - 11.0 MODERATE RISK >11.0 HIGH RISK Performed By: #### D DAVIDSON, MG, PHOS, CMP, LIPID, URIC #### [facility] [address] [address] [address] Sarmad Patino Cholesterol [Mass/Vol] 150 mg/dL Normal <=200 [facility] Comment on above: Performed By: #### D DAVIDSON, MG, PHOS, CMP, LIPID, URIC #### [facility] [address] [address] [address] Sarmad Patino Cholesterol in HDL [Mass/Vol] 47 mg/dL Normal 40-60 [facility] Comment on above: Performed By: #### D DAVIDSON, MG, PHOS, CMP, LIPID, URIC #### [facility] [address] [address] [address] Sarmad Patino Cholesterol in LDL [Mass/Vol] 78.4 mg/dL Normal [facility] Comment on above: Performed By: #### D DAVIDSON, MG, PHOS, CMP, LIPID, URIC #### [facility] [address] [address] [address] Sarmad Patino Cholesterol.total/C holesterol in HDL [Mass ratio] 3.2 {ratio} Normal [facility] Comment on above: Performed By: #### D DAVIDSON, MG, PHOS, CMP, LIPID, URIC #### [facility] [address] [address] [address] Sarmad Patino HDL NORMAL > or = 60 mg/dl - LO W CARDIOVASCULAR RISK <40 mg/dl - HIGH CARDIOVASCULAR RISK Normal [facility] Comment on above: Performed By: #### D DAVIDSON, MG, PHOS, CMP, LIPID, URIC #### [facility] [address] [address] [address] Sarmad Patino LDL CALC NORMAL SEE BELOW Normal [facility] Comment on above: Result Comment: <100 mg/dl OPTIMAL 100 - 129 mg/dl NEAR OR ABOVE OPTIMAL 130 - 159 mg/dl BORDERLINE HIGH 160 - 189 mg/dl HIGH >190 mg/dl VERY HIGH Performed By: #### D DAVIDSON, MG, PHOS, CMP, LIPID, URIC #### [facility] [address] [address] [address] Sarmad Patino Triglyceride [Mass/Vol] 123 mg/dL Normal <=150 [facility] Comment on above: Performed By: #### D DAVIDSON, MG, PHOS, CMP, LIPID, URIC #### [facility] [address] [address] [address] Sarmad Patino VLDL CALC 24.6 mg/dL Normal [facility] Comment on above: Performed By: #### D DAVIDSON, MG, PHOS, CMP, LIPID, URIC #### [facility] [address] [address] [address] Sarmad Patino MAGNESIUMon 09-10-2021 Magnesium [Mass/Vol] 1.5 mg/dL Critically low 1.8-2.4 [facility] Comment on above: Performed By: #### D DAVIDSON, MG, PHOS, CMP, LIPID, URIC #### [facility] [address] [address] [address] Sarmad Patino PHOSPHORUSon 09-10-2021 Phosphate [Mass/Vol] 3.8 mg/dL Normal 2.6-4.7 [facility] Comment on above: Performed By: #### D DAVIDSON, MG, PHOS, CMP, LIPID, URIC #### [facility] [address] [address] [address] Sarmad Patino PROF 14(COMP METB)on 022 Albumin [Mass/Vol] 3.4 g/dL Normal 3.4-5.0 [facility] Comment on above: Performed By: #### D DAVIDSON, MG, PHOS, CMP, LIPID, URIC #### [facility] [address] [place] [address] Dr. Sarmad Patino Albumin/Globulin [Mass ratio] 0.9 {ratio} Normal [facility] Comment on above: Performed By: #### D DAVIDSON, MG, PHOS, CMP, LIPID, URIC #### [facility] [address] [address] [address] Sarmad Patino ALP [Catalytic activity/Vol] 143 U/L Critically high 46-116 [facility] Comment on above: Performed By: #### D DAVIDSON, MG, PHOS, CMP, LIPID, URIC #### [facility] [address] [address] [address] Sarmad Patino ALT [Catalytic activity/Vol] 19 U/L Normal 14-59 [facility] Comment on above: Performed By: #### D DAVIDSON, MG, PHOS, CMP, LIPID, URIC #### [facility] [address] [address] [address] Sarmad Patino Anion gap [Moles/Vol] 13.4 mmol/L Normal [facility] Comment on above: Performed By: #### D DAVIDSON, MG, PHOS, CMP, LIPID, URIC #### [facility] [address] [address] [address] Sarmad Patino AST [Catalytic activity/Vol] 24 U/L Normal 15-37 [facility] Comment on above: Performed By: #### D DAVIDSON, MG, PHOS, CMP, LIPID, URIC #### [facility] [address] [address] [address] Sarmad Patino Bilirubin [Mass/Vol] 0.4 mg/dL Normal 0.2-1.0 [facility] Comment on above: Performed By: #### D DAVIDSON, MG, PHOS, CMP, LIPID, URIC #### [facility] [address] [place] [address] Dr. Sarmad Patino Calcium [Mass/Vol] 9.3 mg/dL Normal 8.5-10.1 [facility] Comment on above: Performed By: #### D DAVIDSON, MG, PHOS, CMP, LIPID, URIC #### [facility] [address] [address] [address] Sarmad Patino Chloride [Moles/Vol] 106 mmol/L Normal 98-107 [facility] Comment on above: Performed By: #### D DAVIDSON, MG, PHOS, CMP, LIPID, URIC #### [facility] [address] [place] [address] Dr. Sarmad Patino CO2 [Moles/Vol] 25.5 mmol/L Normal 21.0-32.0 [facility] Comment on above: Performed By: #### D DAVIDSON, MG, PHOS, CMP, LIPID, URIC #### [facility] [address] [address] [address] Sarmad Patino Creatinine [Mass/Vol] 0.85 mg/dL Normal 0.55-1.02 [facility] Comment on above: Performed By: #### D DAVIDSON, MG, PHOS, CMP, LIPID, URIC #### [facility] [address] [address] [address] Sarmad Patino EGFR-AF NIUEAN >60 Normal >=60 [facility] Comment on above: Performed By: #### D DAVIDSON, MG, PHOS, CMP, LIPID, URIC #### [facility] [address] [address] [address] Sarmad Patino EGFR-NON AF NIUEAN >60 Normal >=60 [facility] Comment on above: Performed By: #### D DAVIDSON, MG, PHOS, CMP, LIPID, URIC #### [facility] [address] [address] [address] Sarmad Patino Globulin (S) [Mass/Vol] 3.8 g/dL Normal [facility] Comment on above: Performed By: #### D DAVIDSON, MG, PHOS, CMP, LIPID, URIC #### [facility] [address] [address] [address] Sarmad Patino Glucose [Mass/Vol] 100 mg/dL Normal 74-106 [facility] Comment on above: Performed By: #### D DAVIDSON, MG, PHOS, CMP, LIPID, URIC #### [facility] [address] [address] [address] Sarmad Patino Potassium [Moles/Vol] 3.9 mmol/L Normal 3.5-5.1 [facility] Comment on above: Performed By: #### D DAVIDSON, MG, PHOS, CMP, LIPID, URIC #### [facility] [address] [address] [address] Sarmad Patino Protein [Mass/Vol] 7.2 g/dL Normal 6.4-8.2 [facility] Comment on above: Performed By: #### D DAVIDSON, MG, PHOS, CMP, LIPID, URIC #### [facility] [address] [address] [address] Sarmad Patino Sodium [Moles/Vol] 141 mmol/L Normal 136-145 [facility] Comment on above: Performed By: #### D DAVIDSON, MG, PHOS, CMP, LIPID, URIC #### [facility] [address] [address] [address] Sarmad Patino Urea nitrogen [Mass/Vol] 16.0 mg/dL Normal 7.0-18.0 [facility] Comment on above: Performed By: #### D DAVIDSON, MG, PHOS, CMP, LIPID, URIC #### [facility] [id number] Sarmad Patino Urea nitrogen/Creatinine [Mass ratio] 18.8 mg/mg Normal [facility] Comment on above: Performed By: #### D DAVIDSNO, MG, PHOS, CMP, LIPID, URIC #### [facility] [id number] Sarmad Patino URIC ACID SERUMon 09-10-2021 Urate [Mass/Vol] 4.8 mg/dL Normal 2.6-6.0 [facility] Comment on above: Performed By: #### D DAVIDSON, MG, PHOS, CMP, LIPID, URIC #### [facility] [address] [address] [address] Sarmad Patino Urinalysis - AUTOMATEDon Appearance (U) cloudy Globial Other Bilirubin Ql (U) Negative [employer] Other Color (U) pale yellow [employer] Other Glucose Ql (U) Negative Globial Other Hemoglobin Ql (U) moderate Fliplingo Other Ketones Ql (U) Negative Globial Other Leukocyte esterase Test strip Ql (U) moderate [employer] Other Nitrite Ql (U) Negative Globial Other pH (U) 7.0 [pH] [employer] Other Protein Ql (U) Negative Globial Other Specific gravity (U) [Rel density] 1.010 [employer] Other Urobilinogen (U) [Mass/Vol] 0.2 mg/dL [employer] Other Urinalysis - AUTOMATED [employer] Other Urine Cultureon 08-14-2021 Urine Culture 100,000 [employer] Other Urine Culture <16 Susceptible Globial Other Urine Culture >16 Resistant [employer] Other Urine Culture <4 Susceptible Globial Other Urine Culture <2 Susceptible Globial Other Urine Culture <1 Susceptible Globial Other Urine Culture <0.5 Susceptible Globial Other Urine Culture <32 Susceptible Globial Other Urine Culture <2/38 Susceptible Globial Other Bacteria identified Cx Nom (U) Reason for Exam Dysuria Urine ORGANISM: Klebsiella pneumoniae (O:KLEPNE) [place] Count 100,000 Aerobic SHYLA Charge (NUC86) --- SUSCEPTIBILITY -- ORGANISM: O:KLEPNE ANTIBIOTIC INTERPRETATION SHYLA Amikacin S <16 Ampicillin R >16 Ampicillin/Sulbactam S <8/4 Aztreonam S <4 Cefazolin S <2 Cefepime S <2 Ceftazidime S <1 Ceftazidime/Avibactam S <8 Ceftriaxone S <1 Ciprofloxacin S <1 Ertapenem S <0.5 Gentamicin S <4 Levofloxacin S <2 Meropenem S <1 Nitrofurantoin S <32 Piperacillin/Tazobacta m S <16 Tetracycline S <4 Tigecycline S <2 Tobramycin S <4 Trimethoprim/Sulfameth oxazole S <2/38 S = SUSCEPTIBLE I = INTERMEDIATE R = RESISTANT BLANK = DATA NOT AVAILABLE, OR DRUG NOT ADVISABLE OR TESTED R* = RESISTANCE DUE TO EXTENDED SPECTRUM BETA-LACTAMASES ESBL = EXTENDED SPECTRUM BETA-LACTAMASE TFG = THYMIDINE-DEPENDENT STRAIN HELENE = BETA-LACTAMASE POSITIVE IB = INDUCIBLE BETA-LACTAMASE. APPEARS IN PLACE OF 'S' WITH SPECIES KNOWN TO POSSESS INDUCIBLE BETA-LACTAMASES. POTENTIALLY THEY MAY BECOME RESISTANT TO ALL B-LACTAM DRUGS. PERFORMED BY: [place] [address] PATHOLOGIST [employer] LOVELY COLE M.D. Normal [facility] Comment on above: Performed By: #### C UU #### [facility] [address] [place] [address] *URINE CULTUREon 12-31-2017 Bacteria identified in Urine by Culture Clinical Report: (D) Specimen: URINE Collected: 12/31/2017 13:40 Status: Final Last Updated: 01/04/2018 12:38 ISO (Final) Diphtheroids >100,000 Cfu/Ml 2 Morphologies ISO (Final) Aerococcus urinae 50,000 - 100,000 Cfu/mL Result changed by [email or web address] on 01/04/2018 12:38. The previous result was: ISO (Prelim) Normal [facility] Comment on above: Performed By: #### 4 1000, [id number], [id number], 77509, 86612, [address]206 ####[facility] CBC W/DIFFon 12-25-2017 ABS BASOPHILS 0.0 10*3/uL Normal 0.0-0.2 [facility] Comment on above: Performed By: #### 5 0103 ####[facility] ABS IMM GRANS 0.0 10*3/uL Normal 0.0-0.2 [facility] Comment on above: Performed By: #### 5 0103 ####[facility] ABS NEUTROPHILS 5.0 10*3/uL Normal 1.6-7.6 [facility] Comment on above: Performed By: #### 5 0103 ####[facility] [place] [address], [facility] Basophils Auto #/vol (Bld) 0.1 % Normal 0.0-1.0 [facility] Comment on above: Performed By: #### 5 0103 ####[facility] [facility] [place] [address], [facility] Eosinophils Auto #/vol (Bld) 0.1 10*3/uL Normal 0.0-0.5 [facility] Comment on above: Performed By: #### 5 0103 ####[facility] [facility] Eosinophils/100 WBC Auto (Bld) 1.6 % Normal 0.0-6.0 [facility] Comment on above: Performed By: #### 5 3 ####[facility] [facility] Erythrocyte distribution width Auto Ratio (RBC) 14.6 % Normal 11.5-15.0 [facility] Comment on above: Performed By: #### 5 0103 ####[facility] [facility] Hematocrit Auto Volume Fraction (Bld) 44.9 % Normal 36.0-45.0 [facility] Comment on above: Performed By: #### 5 0103 ####[facility] [facility].[address] Hemoglobin mass conc (Bld) 14.9 g/dL Normal 12.0-15.0 [facility] Comment on above: Performed By: #### 5 3 ####[facility] IMMATURE GRANS 0.4 % Normal 0.0-1.0 The Nina [facility] Comment on above: Performed By: #### 3 ####[facility] Lymphocytes Auto #/vol (Bld) 1.0 10*3/uL Low 1.2-4.0 [facility] Comment on above: Performed By: #### 102 ####[facility] Lymphocytes/100 WBC Auto (Bld) 14.9 % Low 20.0-45.0 [facility] Comment on above: Performed By: #### 102 ####[place] [address] [address] MCH Auto Entitic mass (RBC) 28.8 pg Normal 27.0-33.0 [facility] Comment on above: Performed By: #### 102 ####[facility] [place] [address] MCHC Auto mass conc (RBC) 33.2 g/dL Normal 32.0-35.0 [facility] Comment on above: Performed By: #### 102 ####[place] [address] [address] MCV Auto Entitic volume (RBC) 86.7 fL Normal 82.0-98.0 [facility] Comment on above: Performed By: #### 3 ####[facility] Monocytes Auto #/vol (Bld) 0.7 10*3/uL Normal 0.1-1.0 [facility] Comment on above: Performed By: #### 102 ####[facility] [place] [address] MONOS 10.6 % Normal 5.0-12.0 [facility] Comment on above: Performed By: #### 102 ####[facility] Neutrophils/100 WBC Auto (Bld) 72.4 % High 40.0-72.0 [facility] Comment on above: Performed By: #### 5 3 ####[facility] [facility].[address] Nucleated RBC/100 WBC Ratio (Bld) 0 % Normal 0-0 [facility] Comment on above: Performed By: #### 5 0103 ####[facility] [facility].[address] PLAT CNT 203 10*3/uL Normal 150-400 The [facility] Comment on above: Performed By: #### 5 3 ####[facility] [facility].[address] RBC Auto #/vol (Bld) 5.18 10*6/uL High 3.80-5.00 [facility] Comment on above: Performed By: #### 5 0103 ####[facility] [facility].[address] WBC Auto #/vol (Bld) 6.90 10*3/uL Normal 4.00-10.60 [facility] Comment on above: Performed By: #### 5 0103 ####[facility] [facility].[address] COMP METABOLIC PANELon 12-25 Albumin mass conc 4.3 g/dL Normal 3.5-5.7 [facility] Comment on above: Performed By: #### 4 1000, 23937, 95970, 92920, 43957, 92568 ####[facility] [facility].[address] ALKALINE PHOSPH 118 IU/L High 34-104 The [facility] Comment on above: Performed By: #### 4 1000, 29735, 05626, 72469, 10470, 32343 ####[facility] [place] [address], [facility] ALT enzyme act/vol 11 U/L Normal 7-52 The [facility] Comment on above: Performed By: #### 4 1000, 06649, 43901, 36243, 81955, 77920 ####[facility] [place] [address], [place] AST enzyme act/vol 17 U/L Normal 13-39 The [facility] Comment on above: Performed By: #### 4 1000, 58642, 25322, 68644, 04345, 65241 ####[facility] [place] [address], [place] Bilirubin mass conc 0.4 mg/dL Normal 0.3-1.0 The [facility] Comment on above: Performed By: #### 4 1000, 29847, 69092, 56739, 16775, 27790 ####[facility] [facility] [place] [address], [facility] Calcium mass conc 9.8 mg/dL Normal 8.6-10.3 The [facility] Comment on above: Performed By: #### 4 1000, 39343, 01169, 71793, 13096, 59361 ####[facility] [place] [address], [place] Chloride molar conc 104 mmol/L Normal 98-107 The [facility] Comment on above: Performed By: #### 4 1000, 26713, 08575, 50635, 10284, 55036 ####[facility] [place] [address], [place] CO2 molar conc 27 mmol/L Normal 21-31 The [facility] Comment on above: Performed By: #### 4 1000, 01438, 78873, 14132, 00706, 27210 ####[facility] [place] [address], [facility] Creatinine mass conc 0.76 mg/dL Normal 0.60-1.20 [facility] Comment on above: Performed By: #### 4 1000, 35740, 00407, 28825, 63363, 53827 ####[facility] [place] [address], [facility] GFR/1.73 sq M predicted among blacks MDRD vol rate/area (S/P/Bld) mL/min/{1.73_m2} Normal >60 The [facility] Comment on above: Performed By: #### 4 1000, 92650, 86328, 81070, 71292, 96674 ####[facility] [place] [address], [facility] GFR/1.73 sq M predicted among non-blacks MDRD vol rate/area (S/P/Bld) mL/min/{1.73_m2} Normal >60 The [facility] Comment on above: Performed By: #### 4 1000, 05316, 99560, 14085, 97144, 66104 ####[facility] [place] [address], [place] Glucose mass conc 94 mg/dL Normal 70-100 [facility] Comment on above: Performed By: #### 4 1000, 25521, 17505, 66021, 69959, 22217 ####[facility] [place] [address], [place] Potassium molar conc 3.9 mmol/L Normal 3.5-5.1 [facility] Comment on above: Performed By: #### 4 1000, 46407, 25088, 28709, 03140, 17486 ####[facility] [place] [address], [place] Protein mass conc 7.2 g/dL Normal 6.0-8.3 The [facility] Comment on above: Performed By: #### 4 1000, 45110, 86470, 96416, 77756, 64738 ####[facility] Sodium molar conc 140 mmol/L Normal 136-145 The [facility] Comment on above: Performed By: #### 4 1000, 39399, 90705, 64835, 58147, 62856 ####[facility] Urea nitrogen mass conc 15 mg/dL Normal 7-25 The [facility] Comment on above: Performed By: #### 4 1000, 19570, 52668, 09252, 82230, 16082 ####[facility] DIRECT BILIon 12-25-2017 Bilirubin.direct mass conc 0.1 mg/dL Normal 0.0-0.2 The [facility] Comment on above: Performed By: #### 4 1000, 92014, 68198, 23486, 38092, 92378 ####[facility] EVEROLIMUS 15424wn 8 EVEROLIMUS 4.7 ng/mL Normal The [facility] Comment on above: Result Comment: Ther apeutic Range:Kidney transplant (in combination with Cyclosporine):3-8 ng/mLLiver transplant (in combination with Tacrolimus):3-8 ng/mLToxic value: Greater than 15 ng/mLEverolimus marketed as Zortress is FDA approved forprophylaxis of organ rejection in adult patients receivinga kidney and liver transplant.Everolimus marketed as Afinitor is FDA approved for thetreatment of renal cell carcinoma and for the treatment ofsubependymal giant cell astrocytoma (SEGA) associated withtuberous sclerosis (TS) in patients who are not candidatesfor curative surgical resection. The suggested therapeuticrange for treatment of SEGA is 5-15 ng/mL, which is basedon a predose (trough) specimen.The optimal therapeutic range for a given patient maydiffer from this suggested range based on the indicationfor therapy, treatment phase (initiation or maintenance),use in combination with other drugs, time of specimencollection relative to prior dose, type of transplantedorgan, and/or the therapeutic approach of the transplantcenter.Test developed and characteristics determined by [facility]. See Compliance Statement B: FreeATM/CSPerformed by [employer] [place] [address] sow.[employer], Leonid Antonio MD - Lab. Director LIPID PROFILEon 12-25-2017 Cholesterol in HDL mass conc 51 mg/dL Normal 23-92 The [facility] Comment on above: Result Comment: Slig ht variation in normal range could be due to gender and/or age.HDL CHOLESTEROL REFERENCE RANGE:20 years and older Cardiovascular Risk> or =60 mg/dL Nryyurkou90 TO 59 mg/dL Low Risk<40 mg/dL High Risk Performed By: #### 4 5506, 51798, 41650, 63431, 53298, 15729 ####[facility] [facility].[address] Cholesterol in LDL mass conc 58 mg/dL Normal 0-130 The [facility] Comment on above: Result Comment: LDL IS A CALCULATIONLDL IS ONLY VALID IF THE TRIG IS LESS THAN 400. Performed By: #### 4 5506, 36292, 29523, 44346, 08060, 14979 ####[facility] [facility] [place] [address], [facility] Cholesterol mass conc 122 mg/dL Normal 120-200 The [facility] Comment on above: Result Comment: CHOL ESTEROL REFERENCE RANGE:20 YEARS AND OLDER CARDIOVASCULAR RISKLess than 200 mg/dl Low Fzkt969 to 239 mg/dl Borderline Yqju932 mg/dl and greater High Risk Performed By: #### 4 5506, 21786, 52440, 24039, 86854, 08438 ####[facility] [place] [address], [facility] Cholesterol.total/C holesterol in HDL mass ratio 2.4 {ratio} Normal .0-4.5 The [facility] Comment on above: Performed By: #### 4 5506, 16979, 24957, 20660, 79119, 41778 ####[facility] NON-HDL CHOLESTEROL 71 mg/dL Normal The [facility] Comment on above: Performed By: #### 4 5506, 29236, 91710, 14113, 41609, 90417 ####[facility] [facility].[address] Triglyceride mass conc 65 mg/dL Normal 40-149 The [facility] Comment on above: Result Comment: TRIG LYCERIDE REFERENCE RANGE:20 YEARS AND OLDER CARDIOVASCULAR RISKLESS THAN 150 mg/dl LOW [id number] TO 199 mg/dl BORDERLINE [id number] mg/dl AND GREATER HIGH RISK Performed By: #### 4 5506, 77687, 06134, 92781, 45786, 71955 ####[facility] [facility].[address] VLDL CHOL 13 mg/dL Normal 0-40 The [facility] Comment on above: Performed By: #### 4 5506, 91702, 44488, 12287, 20362, 82312 ####[facility] [place] [address], [facility] MAGNESIUM BLOODon 12-25-2017 Magnesium mass conc 1.8 mg/dL Low 1.9-2.7 The [facility] Comment on above: Performed By: #### 4 1000, 73977, 82570, 61226, 67601, 75400 ####[facility] [place] [address], [facility] PHOSPHORUS BLOODon 8 Phosphate mass conc 3.4 mg/dL Normal 2.5-5.0 The [facility] Comment on above: Performed By: #### 4 5506, 83257, 30551, 82724, 30794, 99230 ####[facility] TACROLIMUSon 12-25-2017 Tacrolimus mass conc (Bld) 6.4 ng/mL Normal 5.0-20.0 The [facility] Comment on above: Result Comment: The [employer] Tacrolimus assay is a delayed one-step immunoassayfor the quantitative determination of tacrolimus in human whole bloodusing the chemiluminescent microparticle immunoassay (CMIA) technologywith flexible assay protocols, referred to as Chemiflex. Performed By: #### 4 1000, 45882, 78120, 34505, 24969, 47710 ####[facility] URIC ACID BLOODon 12-25-2017 Urate mass conc 4.7 mg/dL Normal 2.3-6.6 The [facility] Comment on above: Performed By: #### 4 5506, 75545, 84963, 77965, 43774, 34251 ####[facility] CBC W/DIFFon 10-30-2017 ABS BASOPHILS 0.0 10*3/uL Normal 0.0-0.2 The [facility] Comment on above: Performed By: #### 4 3647, 38693 ####[facility] ABS IMM GRANS 0.0 10*3/uL Normal 0.0-0.2 The [facility] Comment on above: Performed By: #### 4 6447, 88356 ####[facility] ABS NEUTROPHILS 4.9 10*3/uL Normal 1.6-7.6 The [facility] Comment on above: Performed By: #### 4 6459, 67678 ####[facility] [place] [address], [facility] Basophils Auto #/vol (Bld) 0.1 % Normal 0.0-1.0 The [facility] Comment on above: Performed By: #### 9 3858, 99628 ####[facility] [facility] [place] [address], [facility] Eosinophils Auto #/vol (Bld) 0.1 10*3/uL Normal 0.0-0.5 The [facility] Comment on above: Performed By: #### 4 9828, 67456 ####[facility] [facility].[address] Eosinophils/100 WBC Auto (Bld) 1.4 % Normal 0.0-6.0 The [facility] Comment on above: Performed By: #### 3 6876, 49545 ####[facility] [facility].[address] Erythrocyte distribution width Auto Ratio (RBC) 14.6 % Normal 11.5-15.0 The [facility] Comment on above: Performed By: #### 3 5732, 77464 ####[facility] [facility].[address] Hematocrit Auto Volume Fraction (Bld) 46.8 % High 36.0-45.0 The [facility] Comment on above: Performed By: #### 8 8200, 47505 ####[facility] [facility].[address] Hemoglobin mass conc (Bld) 15.1 g/dL High 12.0-15.0 The [facility] Comment on above: Performed By: #### 5 6308, 97966 ####[facility] [place] [address], [facility] IMMATURE GRANS 0.4 % Normal 0.0-1.[address] [facility] Comment on above: Performed By: #### 4 6455, 23141 ####[facility] [facility].[address] Lymphocytes Auto #/vol (Bld) 1.2 10*3/uL Normal 1.2-4.0 The [facility] Comment on above: Performed By: #### 4 2395, 16344 ####[facility] [facility].[address] Lymphocytes/100 WBC Auto (Bld) 16.6 % Low 20.0-45.0 The [facility] Comment on above: Performed By: #### 4 5002, 22697 ####[facility] [facility].[address] MCH Auto Entitic mass (RBC) 29.0 pg Normal 27.0-33.0 The [facility] Comment on above: Performed By: #### 4 5375, 35334 ####[facility] MCHC Auto mass conc (RBC) 32.3 g/dL Normal 32.0-35.0 The [facility] Comment on above: Performed By: #### 4 9481, 77531 ####[place] [address] [address] MCV Auto Entitic volume (RBC) 89.8 fL Normal 82.0-98.0 The [facility] Comment on above: Performed By: #### 4 0797, 03705 ####[facility] [facility].[address] Monocytes Auto #/vol (Bld) 0.8 10*3/uL Normal 0.1-1.0 The [facility] Comment on above: Performed By: #### 4 5891, 73692 ####[facility] MONOS 11.9 % Normal 5.0-12.0 The [facility] Comment on above: Performed By: #### 4 6447, 45867 ####[facility] [place] [address], [facility] Neutrophils/100 WBC Auto (Bld) 69.6 % Normal 40.0-72.0 The [facility] Comment on above: Performed By: #### 4 6447, 03175 ####[facility] Nucleated RBC/100 WBC Ratio (Bld) 0 % Normal 0-0 The [facility] Comment on above: Performed By: #### 4 6447, 41977 ####[place] [address] PLAT CNT 200 10*3/uL Normal 150-400 The [facility] Comment on above: Performed By: #### 4 47, 57744 ####[facility] RBC Auto #/vol (Bld) 5.21 10*6/uL High 3.80-5.00 The [facility] Comment on above: Performed By: #### 4 6447, 75603 ####[facility]3000 [facility].[address] WBC Auto #/vol (Bld) 7.04 10*3/uL Normal 4.00-10.60 The [facility] Comment on above: Performed By: #### 4 6447, 88624 ####[facility] COMP METABOLIC PANELon 10-30 Albumin mass conc 4.1 g/dL Normal 3.5-5.7 [facility] Comment on above: Performed By: #### 4 6447, 92172 ####[facility].[place] [id number], [facility] ALKALINE PHOSPH 114 IU/L High 34-104 The [facility] Comment on above: Performed By: #### 4 5985, 72763 ####[facility] [place] [address], [place] ALT enzyme act/vol 16 U/L Normal 7-52 The [facility] Comment on above: Performed By: #### 4 8259, 02098 ####[facility] [place] [address], [place] AST enzyme act/vol 18 U/L Normal 13-39 The [facility] Comment on above: Performed By: #### 7 7873, 09497 ####[facility] [place] [address], [facility] Bilirubin mass conc 0.4 mg/dL Normal 0.3-1.0 [facility] Comment on above: Performed By: #### 2 9844, 62480 ####[facility] [place] [address], [facility] Calcium mass conc 9.7 mg/dL Normal 8.6-10.3 [facility] Comment on above: Performed By: #### 4 1206, 29121 ####[facility] [place] [address], [place] Chloride molar conc 105 mmol/L Normal 98-107 The [facility] Comment on above: Performed By: #### 1 8791, 65008 ####[facility] [place] [address], [place] CO2 molar conc 28 mmol/L Normal 21-31 The [facility] Comment on above: Performed By: #### 4 5979, 62456 ####[facility] [place] [address], [place] Creatinine mass conc 0.82 mg/dL Normal 0.60-1.20 The [facility] Comment on above: Performed By: #### 7 6040, 19134 ####[facility] [place] [address], [facility] GFR/1.73 sq M predicted among blacks MDRD vol rate/area (S/P/Bld) mL/min/{1.73_m2} Normal >60 The [facility] Comment on above: Performed By: #### 4 8009, 44536 ####[facility] [place] [address], [facility] GFR/1.73 sq M predicted among non-blacks MDRD vol rate/area (S/P/Bld) mL/min/{1.73_m2} Normal >60 The [facility] Comment on above: Performed By: #### 1 5411, 78216 ####[facility] [place] [address], [facility] Glucose mass conc 90 mg/dL Normal 70-100 The [facility] Comment on above: Performed By: #### 7 8758, 31286 ####[facility] [place] [address], [facility] Potassium molar conc 4.1 mmol/L Normal 3.5-5.1 The [facility] Comment on above: Performed By: #### 8 4211, 37793 ####[facility] [place] [address], [facility] Protein mass conc 6.9 g/dL Normal 6.0-8.3 The [facility] Comment on above: Performed By: #### 4 9641, 62618 ####[facility] [place] [address], [facility] Sodium molar conc 138 mmol/L Normal 136-145 The [facility] Comment on above: Performed By: #### 7 2871, 56679 ####[facility] [place] [address], [facility] Urea nitrogen mass conc 16 mg/dL Normal 7-25 The [facility] Comment on above: Performed By: #### 4 6447, 05576 ####[facility] [place] [address], [facility] DIRECT BILIon 10-30-2017 Bilirubin.direct mass conc 0.0 mg/dL Normal 0.0-0.2 The [facility] Comment on above: Performed By: #### 4 5506, 25886, 37289, 98434, 32002, 19498 ####[facility] [facility].[address] EVEROLIMUS [id number] 8 EVEROLIMUS 6.0 ng/mL Normal The [facility] Comment on above: Result Comment: Ther apeutic Range:Kidney transplant (in combination with Cyclosporine):3-8 ng/mLLiver transplant (in combination with Tacrolimus):3-8 ng/mLToxic value: Greater than 15 ng/mLEverolimus marketed as Zortress is FDA approved forprophylaxis of organ rejection in adult patients receivinga kidney and liver transplant.Everolimus marketed as Afinitor is FDA approved for thetreatment of renal cell carcinoma and for the treatment ofsubependymal giant cell astrocytoma (SEGA) associated withtuberous sclerosis (TS) in patients who are not candidatesfor curative surgical resection. The suggested therapeuticrange for treatment of SEGA is 5-15 ng/mL, which is basedon a predose (trough) specimen.The optimal therapeutic range for a given patient maydiffer from this suggested range based on the indicationfor therapy, treatment phase (initiation or maintenance),use in combination with other drugs, time of specimencollection relative to prior dose, type of transplantedorgan, and/or the therapeutic approach of the transplantcenter.Test developed and characteristics determined by [facility]. See Compliance Statement B: FreeATM/CSPerformed by [employer],[address] [place] [address] jeh.[employer], Leonid Antonio MD - Lab. Director LIPID PROFILEon 10-30-2017 Cholesterol in HDL mass conc 50 mg/dL Normal 23-92 [facility] Comment on above: Result Comment: Slig ht variation in normal range could be due to gender and/or age.HDL CHOLESTEROL REFERENCE RANGE:20 years and older Cardiovascular Risk> or =60 mg/dL [id number] TO 59 mg/dL Low Risk<40 mg/dL High Risk Performed By: #### 4 5506, 58442, 36338, 91798, 59051, 98745 ####[facility] [place] [address], [facility] Cholesterol in LDL mass conc 85 mg/dL Normal 0-130 The [facility] Comment on above: Result Comment: LDL IS A CALCULATIONLDL IS ONLY VALID IF THE TRIG IS LESS THAN 400. Performed By: #### 4 5506, 74937, 05697, 23166, 15757, 73676 ####[facility] [place] [address], [facility] Cholesterol mass conc 152 mg/dL Normal 120-200 The [facility] Comment on above: Result Comment: CHOL ESTEROL REFERENCE RANGE:20 YEARS AND OLDER CARDIOVASCULAR RISKLess than 200 mg/dl Low Robr570 to 239 mg/dl Borderline Jrfa756 mg/dl and greater High Risk Performed By: #### 4 5506, 18700, 88259, 45353, 92289, 78475 ####[facility] [place] [address], [place] Cholesterol.total/C holesterol in HDL mass ratio 3.0 {ratio} Normal .0-4.5 The [facility] Comment on above: Performed By: #### 4 5506, 49744, 21449, 86295, 30690, 41426 ####[facility] [place] [address], [place] NON-HDL CHOLESTEROL 102 mg/dL Normal The [facility] Comment on above: Performed By: #### 4 5506, 56659, 50369, 69947, 71140, 69776 ####[facility] Triglyceride mass conc 87 mg/dL Normal 40-149 The [facility] Comment on above: Result Comment: TRIG LYCERIDE REFERENCE RANGE:20 YEARS AND OLDER CARDIOVASCULAR RISKLESS THAN 150 mg/dl LOW [id number] TO 199 mg/dl BORDERLINE THOP156 mg/dl AND GREATER HIGH RISK Performed By: #### 4 5506, 95567, 96699, 53778, 50962, 07786 ####[facility] VLDL CHOL 17 mg/dL Normal 0-40 The [facility] Comment on above: Performed By: #### 4 5506, 21006, 17936, 06110, 00521, 82751 ####[facility] MAGNESIUM BLOODon 10-30-2017 Magnesium mass conc 1.9 mg/dL Normal 1.9-2.7 The [facility] Comment on above: Performed By: #### 4 5506, 48528, 17306, 71933, 64075, 22771 ####[facility] [place] [address], [facility] PHOSPHORUS BLOODon 8 Phosphate mass conc 3.7 mg/dL Normal 2.5-5.0 The [facility] Comment on above: Performed By: #### 4 5506, 60621, 46128, 06432, 77984, 30329 ####[facility] [place] [address], [facility] TACROLIMUSon 10-30-2017 Tacrolimus mass conc (Bld) 7.1 ng/mL Normal 5.0-20.0 The [facility] Comment on above: Result Comment: The [employer] Tacrolimus assay is a delayed one-step immunoassayfor the quantitative determination of tacrolimus in human whole bloodusing the chemiluminescent microparticle immunoassay (CMIA) technologywith flexible assay protocols, referred to as Chemiflex. Performed By: #### 9 9914 ####[facility] URIC ACID BLOODon 10-30-2017 Urate mass conc 4.6 mg/dL Normal 2.3-6.6 The [facility] Comment on above: Performed By: #### 4 8547, 28524 ####[facility] [facility].[address] CBC W/DIFFon 10-23-2017 ABS BASOPHILS 0.0 10*3/uL Normal 0.0-0.2 The [facility] Comment on above: Performed By: #### 4 4049, 68040 ####[place] [address] [address] ABS IMM GRANS 0.1 10*3/uL Normal 0.0-0.2 The [facility] Comment on above: Performed By: #### 4 1102, 26763 ####[address] ABS NEUTROPHILS 5.8 10*3/uL Normal 1.6-7.6 The [facility] Comment on above: Performed By: #### 4 6547, 82516 ####[place] [address] [address] Basophils Auto #/vol (Bld) 0.2 % Normal 0.0-1.0 The [facility] Comment on above: Performed By: #### 4 0703, 35026 ####[place] [address] [facility].[address] Eosinophils Auto #/vol (Bld) 0.1 10*3/uL Normal 0.0-0.5 The [facility] Comment on above: Performed By: #### 4 8820, 47906 ####[address] [place] [address], [place] Eosinophils/100 WBC Auto (Bld) 0.7 % Normal 0.0-6.0 The [facility] Comment on above: Performed By: #### 4 6504, 68838 ####[facility] Erythrocyte distribution width Auto Ratio (RBC) 14.6 % Normal 11.5-15.0 The [facility] Comment on above: Performed By: #### 4 9287, 62593 ####[place] [address] [address] Hematocrit Auto Volume Fraction (Bld) 44.2 % Normal 36.0-45.0 The [facility] Comment on above: Performed By: #### 4 0872, 73068 ####[address] Hemoglobin mass conc (Bld) 14.2 g/dL Normal 12.0-15.0 [facility] Comment on above: Performed By: #### 4 8689, 59514 ####[address] IMMATURE GRANS 1.4 % High 0.0-1.0 The [facility] Comment on above: Performed By: #### 4 9420, 17358 ####[address] Lymphocytes Auto #/vol (Bld) 2.1 10*3/uL Normal 1.2-4.0 [facility] Comment on above: Performed By: #### 4 8498, 16889 ####[facility] [facility].[address] Lymphocytes/100 WBC Auto (Bld) 22.5 % Normal 20.0-45.0 [facility] Comment on above: Performed By: #### 4 8340, 78062 ####[facility] MCH Auto Entitic mass (RBC) 28.5 pg Normal 27.0-33.0 [facility] Comment on above: Performed By: #### 4 5011, 63633 ####[facility] MCHC Auto mass conc (RBC) 32.1 g/dL Normal 32.0-35.0 [facility] Comment on above: Performed By: #### 4 0416, 96681 ####[facility] [facility].[address] MCV Auto Entitic volume (RBC) 88.8 fL Normal 82.0-98.0 [facility] Comment on above: Performed By: #### 4 7007, 93796 ####[facility].[address] Monocytes Auto #/vol (Bld) 1.1 10*3/uL High 0.1-1.0 [facility] Comment on above: Performed By: #### 4 9498, 13084 ####[facility].[address] MONOS 12.0 % Normal 5.0-12.0 [facility] Comment on above: Performed By: #### 4 0183, 91225 ####[facility].[address] Neutrophils/100 WBC Auto (Bld) 63.2 % Normal 40.0-72.0 [facility] Comment on above: Performed By: #### 4 5683, 76725 ####[facility] Nucleated RBC/100 WBC Ratio (Bld) 0 % Normal 0-0 [facility] Comment on above: Performed By: #### 4 8727, 17894 ####[facility] [facility] [place] [address], [facility] PLAT CNT 241 10*3/uL Normal 150-400 The [facility] Comment on above: Performed By: #### 4 6447, 60209 ####[facility] [facility] [address], [facility] RBC Auto #/vol (Bld) 4.98 10*6/uL Normal 3.80-5.00 [facility] Comment on above: Performed By: #### 4 6447, 40987 ####[facility] [facility].[address] WBC Auto #/vol (Bld) 9.14 10*3/uL Normal 4.00-10.60 [facility] Comment on above: Performed By: #### 4 6447, 87752 ####[facility] [facility].[address] COMP METABOLIC PANELon 10-23 Albumin mass conc 3.8 g/dL Normal 3.5-5.7 [facility] Comment on above: Performed By: #### 4 6447, 15571 ####[facility] [facility].[address] ALKALINE PHOSPH 96 IU/L Normal 34-104 The [facility] Comment on above: Performed By: #### 4 6447, 25911 ####[facility] [facility].[address] ALT enzyme act/vol 15 U/L Normal 7-52 [facility] Comment on above: Performed By: #### 4 6447, 29376 ####[facility]3000 [facility].[address] AST enzyme act/vol 13 U/L Normal 13-39 The Un [facility] Comment on above: Performed By: #### 4 2247, 37436 ####[facility] [place] [address], [place] Bilirubin mass conc 0.4 mg/dL Normal 0.3-1.0 The [facility] Comment on above: Performed By: #### 4 9747, 80014 ####[facility] [place] [address], [place] Calcium mass conc 9.2 mg/dL Normal 8.6-10.3 [facility] Comment on above: Performed By: #### 4 9226, 43392 ####[facility] [place] [address], [place] Chloride molar conc 102 mmol/L Normal 98-107 [facility] Comment on above: Performed By: #### 2 0635, 87470 ####[facility] [place] [address], [place] CO2 molar conc 29 mmol/L Normal 21-31 The [facility] Comment on above: Performed By: #### 7 6395, 00647 ####[facility] [place] [address], [place] Creatinine mass conc 0.80 mg/dL Normal 0.60-1.20 [facility] Comment on above: Performed By: #### 4 5547, 27048 ####[facility] [place] [address], [place] GFR/1.73 sq M predicted among blacks MDRD vol rate/area (S/P/Bld) mL/min/{1.73_m2} Normal >60 The [facility] Comment on above: Performed By: #### 4 7847, 28270 ####[facility] [place] [address], [place] GFR/1.73 sq M predicted among non-blacks MDRD vol rate/area (S/P/Bld) mL/min/{1.73_m2} Normal >60 The [facility] Comment on above: Performed By: #### 4 6947, 03701 ####[facility] [place] [address], [facility] Glucose mass conc 85 mg/dL Normal 70-100 [facility] Comment on above: Performed By: #### 4 9893, 13477 ####[facility] [place] [address], [facility] Potassium molar conc 3.3 mmol/L Low 3.5-5.1 [facility] Comment on above: Performed By: #### 4 5079, 76997 ####[facility] Protein mass conc 6.5 g/dL Normal 6.0-8.3 [facility] Comment on above: Performed By: #### 4 4513, 89647 ####[facility] Sodium molar conc 139 mmol/L Normal 136-145 [facility] Comment on above: Performed By: #### 4 4047, 72784 ####[facility] Urea nitrogen mass conc 18 mg/dL Normal 7-25 [facility] Comment on above: Performed By: #### 4 1673, 89775 ####[facility] DIRECT BILIon 10-23-2017 Bilirubin.direct mass conc 0.1 mg/dL Normal 0.0-0.2 [facility] Comment on above: Performed By: #### 4 4047, 11446 ####[facility] [place] [address], [facility] EVEROLIMUS [id number] 8 EVEROLIMUS 4.0 ng/mL Normal [facility] Comment on above: Result Comment: Ther apeutic Range:Kidney transplant (in combination with Cyclosporine):3-8 ng/mLLiver transplant (in combination with Tacrolimus):3-8 ng/mLToxic value: Greater than 15 ng/mLEverolimus marketed as Zortress is FDA approved forprophylaxis of organ rejection in adult patients receivinga kidney and liver transplant.Everolimus marketed as Afinitor is FDA approved for thetreatment of renal cell carcinoma and for the treatment ofsubependymal giant cell astrocytoma (SEGA) associated withtuberous sclerosis (TS) in patients who are not candidatesfor curative surgical resection. The suggested therapeuticrange for treatment of SEGA is 5-15 ng/mL, which is basedon a predose (trough) specimen.The optimal therapeutic range for a given patient maydiffer from this suggested range based on the indicationfor therapy, treatment phase (initiation or maintenance),use in combination with other drugs, time of specimencollection relative to prior dose, type of transplantedorgan, and/or the therapeutic approach of the transplantcenter.Test developed and characteristics determined by [facility]. See Compliance Statement B: FreeATM/CSPerformed by [employer],[address] [place] [address] [id number] wdl.FreeATM, Leonid Antonio MD - Lab. Director LIPID PROFILEon 10-23-2017 Cholesterol in HDL mass conc 53 mg/dL Normal 23-92 [facility] Comment on above: Result Comment: Slig ht variation in normal range could be due to gender and/or age.HDL CHOLESTEROL REFERENCE RANGE:20 years and older Cardiovascular Risk> or =60 mg/dL [id number] TO 59 mg/dL Low Risk<40 mg/dL High Risk Performed By: #### 0 4390, 88459 ####[facility] [place] [address], [facility] Cholesterol in LDL mass conc 68 mg/dL Normal 0-130 [facility] Comment on above: Result Comment: LDL IS A CALCULATIONLDL IS ONLY VALID IF THE TRIG IS LESS THAN 400. Performed By: #### 4 2554, 91422 ####[facility] [facility] [place] [place] [address], [facility] Cholesterol mass conc 135 mg/dL Normal 120-200 [facility] Comment on above: Result Comment: CHOL ESTEROL REFERENCE RANGE:20 YEARS AND OLDER CARDIOVASCULAR RISKLess than 200 mg/dl Low Kamc025 to 239 mg/dl Borderline Xdss872 mg/dl and greater High Risk Performed By: #### 4 2340, 94635 ####[facility] [facility] [place] [address], [facility] Cholesterol.total/C holesterol in HDL mass ratio 2.5 {ratio} Normal .0-4.5 [facility] Comment on above: Performed By: #### 4 3200, 35273 ####[facility] [facility].[address] NON-HDL CHOLESTEROL 82 mg/dL Normal The [facility] Comment on above: Performed By: #### 4 2153, 69083 ####[facility] [facility].[address] Triglyceride mass conc 72 mg/dL Normal 40-149 [facility] Comment on above: Result Comment: TRIG LYCERIDE REFERENCE RANGE:20 YEARS AND OLDER CARDIOVASCULAR RISKLESS THAN 150 mg/dl LOW [id number] TO 199 mg/dl BORDERLINE [id number] mg/dl AND GREATER HIGH RISK Performed By: #### 4 8786, 90224 ####[facility] [place] [address], [facility] VLDL CHOL 14 mg/dL Normal 0-40 [facility] Comment on above: Performed By: #### 3 5373, 15937 ####[facility] [place] [address], [facility] MAGNESIUM BLOODon 10-23-2017 Magnesium mass conc 1.8 mg/dL Low 1.9-2.7 The [facility] Comment on above: Performed By: #### 5 8580, 86470 ####[facility] [place] [address], [facility] PHOSPHORUS BLOODon 8 Phosphate mass conc 3.7 mg/dL Normal 2.5-5.0 The [facility] Comment on above: Performed By: #### 4 6447, 78134 ####[address] TACROLIMUSon 10-23-2017 Tacrolimus mass conc (Bld) 2.6 ng/mL Low 5.0-20.0 [facility] Comment on above: Result Comment: The [employer] Tacrolimus assay is a delayed one-step immunoassayfor the quantitative determination of tacrolimus in human whole bloodusing the chemiluminescent microparticle immunoassay (CMIA) technologywith flexible assay protocols, referred to as Chemiflex. Performed By: #### 4 6447, 82498 ####[address] URIC ACID BLOODon 10-23-2017 Urate mass conc 4.3 mg/dL Normal 2.3-6.6 The [facility] Comment on above: Performed By: #### 4 6447, 96452 ####[address] CBC W/DIFFon 09-25-2017 ABS BASOPHILS 0.0 10*3/uL Normal 0.0-0.2 The [facility] Comment on above: Performed By: #### 4 1000, 96673, 12088, 40679, 80719, 23737 ####[address] ABS IMM GRANS 0.0 10*3/uL Normal 0.0-0.2 The [facility] Comment on above: Performed By: #### 4 1000, 98791, 66504, 70495, 96551, 74122 ####[address] [place] [address], [place] ABS NEUTROPHILS 4.4 10*3/uL Normal 1.6-7.6 The [facility] Comment on above: Performed By: #### 4 1000, 32755, 50157, 64728, 33145, 21153 ####[facility] Basophils Auto #/vol (Bld) 0.2 % Normal 0.0-1.0 [facility] Comment on above: Performed By: #### 4 1000, 16123, 50346, 41840, 67531, 14835 ####[facility] [facility] [place] [place] [address], [facility] Eosinophils Auto #/vol (Bld) 0.1 10*3/uL Normal 0.0-0.5 [facility] Comment on above: Performed By: #### 4 1000, 18396, 75956, 05984, 62071, 54495 ####[facility]3000 [facility].[address] Eosinophils/100 WBC Auto (Bld) 2.2 % Normal 0.0-6.0 [facility] Comment on above: Performed By: #### 4 1000, 54087, 73969, 60049, 51675, 01817 ####[place] [address] [facility].[address] Erythrocyte distribution width Auto Ratio (RBC) 14.0 % Normal 11.5-15.0 [facility] Comment on above: Performed By: #### 4 1000, 42213, 16917, 72757, 88997, 65967 ####[facility]3000 [facility].[address] Hematocrit Auto Volume Fraction (Bld) 44.8 % Normal 36.0-45.0 [facility] Comment on above: Performed By: #### 4 1000, 39397, 18373, 53835, 67103, 30527 ####[facility] [facility].[address] Hemoglobin mass conc (Bld) 14.5 g/dL Normal 12.0-15.0 [facility] Comment on above: Performed By: #### 4 1000, 41208, 65622, 02976, 28575, 43288 ####[facility] [facility].[address] IMMATURE GRANS 0.3 % Normal 0.0-1.0 The [facility] Comment on above: Performed By: #### 4 1000, 62303, 61887, 31334, 01109, 89988 ####[place] [address] [address] Lymphocytes Auto #/vol (Bld) 1.1 10*3/uL Low 1.2-4.0 [facility] Comment on above: Performed By: #### 4 1000, 42924, 50961, 23017, 32889, 48047 ####[facility] Lymphocytes/100 WBC Auto (Bld) 17.0 % Low 20.0-45.0 [facility] Comment on above: Performed By: #### 4 1000, 55333, 22267, 67538, 46006, 87897 ####[facility] [facility].[address] MCH Auto Entitic mass (RBC) 28.6 pg Normal 27.0-33.0 [facility] Comment on above: Performed By: #### 4 1000, 90043, 17827, 38585, 05094, 13873 ####[facility] [place] [address] MCHC Auto mass conc (RBC) 32.4 g/dL Normal 32.0-35.0 [facility] Comment on above: Performed By: #### 4 1000, 48939, 78581, 08075, 12773, 42633 ####[facility] MCV Auto Entitic volume (RBC) 88.4 fL Normal 82.0-98.0 [facility] Comment on above: Performed By: #### 4 1000, 55914, 48568, 27050, 49632, 41861 ####[facility] Monocytes Auto #/vol (Bld) 0.7 10*3/uL Normal 0.1-1.0 [facility] Comment on above: Performed By: #### 4 1000, 80519, 00936, 82876, 84771, 39491 ####[facility] MONOS 11.5 % Normal 5.0-12.0 [facility] Comment on above: Performed By: #### 4 1000, 28391, 26539, 31026, 01345, 09708 ####[facility] Neutrophils/100 WBC Auto (Bld) 68.8 % Normal 40.0-72.0 [facility] Comment on above: Performed By: #### 4 1000, 19002, 23547, 52350, 98402, 62175 ####[facility] Nucleated RBC/100 WBC Ratio (Bld) 0 % Normal 0-0 [facility] Comment on above: Performed By: #### 4 1000, 46116, 80946, 97419, 70747, 21222 ####[facility] PLAT CNT 212 10*3/uL Normal 150-400 The [facility] Comment on above: Performed By: #### 4 1000, 16492, 98680, 17381, 75738, 07126 ####[facility] RBC Auto #/vol (Bld) 5.07 10*6/uL High 3.80-5.00 [facility] Comment on above: Performed By: #### 4 1000, 26796, 60468, 36223, 24377, 48657 ####[facility]3000 [facility].[address] WBC Auto #/vol (Bld) 6.34 10*3/uL Normal 4.00-10.60 [facility] Comment on above: Performed By: #### 4 1000, 46707, 22708, 68371, 74201, 90165 ####[facility] [facility].[address] COMP METABOLIC PANELon 09-25 Albumin mass conc 4.0 g/dL Normal 3.5-5.7 [facility] Comment on above: Performed By: #### 4 6447, 59219 ####[facility] [facility].[address] ALKALINE PHOSPH 112 IU/L High 34-104 The [facility] Comment on above: Performed By: #### 4 6447, 40199 ####[facility] [facility].[address] ALT enzyme act/vol 11 U/L Normal 7-52 The [facility] Comment on above: Performed By: #### 4 6447, 24245 ####[facility]3000 [facility].[address] AST enzyme act/vol 17 U/L Normal 13-39 The [facility] Comment on above: Performed By: #### 4 6447, 13310 ####[facility] [facility].[place] [id number], [facility] Bilirubin mass conc 0.5 mg/dL Normal 0.3-1.0 The [facility] Comment on above: Performed By: #### 4 0333, 57277 ####[facility] [place] [address], [place] Calcium mass conc 9.6 mg/dL Normal 8.6-10.3 [facility] Comment on above: Performed By: #### 4 5406, 14920 ####[facility] [place] [address], [place] Chloride molar conc 104 mmol/L Normal 98-107 The [facility] Comment on above: Performed By: #### 4 9541, 47389 ####[facility] [place] [address], [place] CO2 molar conc 28 mmol/L Normal 21-31 The [facility] Comment on above: Performed By: #### 6 8758, 33689 ####[facility] [place] [address], [facility] Creatinine mass conc 0.83 mg/dL Normal 0.60-1.20 [facility] Comment on above: Performed By: #### 4 6783, 29336 ####[facility].[place] [id number], [place] GFR/1.73 sq M predicted among blacks MDRD vol rate/area (S/P/Bld) mL/min/{1.73_m2} Normal >60 The [facility] Comment on above: Performed By: #### 4 6880, 72046 ####[facility] [id number], [place] GFR/1.73 sq M predicted among non-blacks MDRD vol rate/area (S/P/Bld) mL/min/{1.73_m2} Normal >60 The [facility] Comment on above: Performed By: #### 4 6447, 43717 ####[facility] Glucose mass conc 91 mg/dL Normal 70-100 The [facility] Comment on above: Performed By: #### 4 6447, 54483 ####[facility] [facility].[address] Potassium molar conc 3.9 mmol/L Normal 3.5-5.1 [facility] Comment on above: Performed By: #### 4 6447, 10653 ####[place] [address] [facility].[address] Protein mass conc 7.0 g/dL Normal 6.0-8.3 [facility] Comment on above: Performed By: #### 4 6447, 96728 ####[place] [address] [facility].[address] Sodium molar conc 140 mmol/L Normal 136-145 [facility] Comment on above: Performed By: #### 4 6447, 16678 ####[facility] [facility].[address] Urea nitrogen mass conc 15 mg/dL Normal 7-25 [facility] Comment on above: Performed By: #### 4 6447, 25534 ####[facility] [facility].[address] DIRECT BILIon 09-25-2017 Bilirubin.direct mass conc 0.1 mg/dL Normal 0.0-0.2 The [facility] Comment on above: Performed By: #### 4 6447, 15234 ####[facility] [place], [place] [address] [address], [facility] EVEROLIMUS [id number] 8 EVEROLIMUS 5.1 ng/mL Normal The [facility] Comment on above: Result Comment: Ther apeutic Range:Kidney transplant (in combination with Cyclosporine):3-8 ng/mLLiver transplant (in combination with Tacrolimus):3-8 ng/mLToxic value: Greater than 15 ng/mLEverolimus marketed as Zortress is FDA approved forprophylaxis of organ rejection in adult patients receivinga kidney and liver transplant.Everolimus marketed as Afinitor is FDA approved for thetreatment of renal cell carcinoma and for the treatment ofsubependymal giant cell astrocytoma (SEGA) associated withtuberous sclerosis (TS) in patients who are not candidatesfor curative surgical resection. The suggested therapeuticrange for treatment of SEGA is 5-15 ng/mL, which is basedon a predose (trough) specimen.The optimal therapeutic range for a given patient maydiffer from this suggested range based on the indicationfor therapy, treatment phase (initiation or maintenance),use in combination with other drugs, time of specimencollection relative to prior dose, type of transplantedorgan, and/or the therapeutic approach of the transplantcenter.Test developed and characteristics determined by [facility]. See Compliance Statement B: FreeATM/CSPerformed by [employer],[address] [place] [id number] czv.FreeATM, Leonid Antonio MD - Lab. Director LIPID PROFILEon 09-25-2017 Cholesterol in HDL mass conc 48 mg/dL Normal 23-92 [facility] Comment on above: Result Comment: Slig ht variation in normal range could be due to gender and/or age.HDL CHOLESTEROL REFERENCE RANGE:20 years and older Cardiovascular Risk> or =60 mg/dL Ylhlhwlja74 TO 59 mg/dL Low Risk<40 mg/dL High Risk Performed By: #### 4 7533, 16720 ####[facility] [facility].[address] Cholesterol in LDL mass conc 69 mg/dL Normal 0-130 The [facility] Comment on above: Result Comment: LDL IS A CALCULATIONLDL IS ONLY VALID IF THE TRIG IS LESS THAN 400. Performed By: #### 1 2536, 15737 ####[facility] [facility].[address] Cholesterol mass conc 138 mg/dL Normal 120-200 [facility] Comment on above: Result Comment: CHOL ESTEROL REFERENCE RANGE:20 YEARS AND OLDER CARDIOVASCULAR RISKLess than 200 mg/dl Low Fvif346 to 239 mg/dl Borderline Ybdo571 mg/dl and greater High Risk Performed By: #### 4 3599, 02123 ####[facility] [facility].[address] Cholesterol.total/C holesterol in HDL mass ratio 2.9 {ratio} Normal .0-4.5 [facility] Comment on above: Performed By: #### 4 1606, 41332 ####[facility] [facility].[address] NON-HDL CHOLESTEROL 90 mg/dL Normal The [facility] Comment on above: Performed By: #### 4 6259, 72554 ####[facility] [facility].[address] Triglyceride mass conc 103 mg/dL Normal 40-149 [facility] Comment on above: Result Comment: TRIG LYCERIDE REFERENCE RANGE:20 YEARS AND OLDER CARDIOVASCULAR RISKLESS THAN 150 mg/dl LOW [id number] TO 199 mg/dl BORDERLINE GGWD201 mg/dl AND GREATER HIGH RISK Performed By: #### 4 5898, 05739 ####[facility] [facility].[address] VLDL CHOL 21 mg/dL Normal 0-40 [facility] Comment on above: Performed By: #### 4 0929, 69702 ####[facility] [facility] [address], [facility] MAGNESIUM BLOODon 09-25-2017 Magnesium mass conc 1.8 mg/dL Low 1.9-2.7 The [facility] Comment on above: Performed By: #### 4 4096, 05608 ####[facility] [place] [address], [facility] PHOSPHORUS BLOODon 8 Phosphate mass conc 3.4 mg/dL Normal 2.5-5.0 [facility] Comment on above: Performed By: #### 4 6447, 28986 ####[facility] TACROLIMUSon 09-25-2017 Tacrolimus mass conc (Bld) 3.6 ng/mL Low 5.0-20.0 The [facility] Comment on above: Result Comment: The [employer] Tacrolimus assay is a delayed one-step immunoassayfor the quantitative determination of tacrolimus in human whole bloodusing the chemiluminescent microparticle immunoassay (CMIA) technologywith flexible assay protocols, referred to as Chemiflex. Performed By: #### 4 6447, 97426 ####[place] [address] [address] URIC ACID BLOODon 09-25-2017 Urate mass conc 4.7 mg/dL Normal 2.3-6.6 [facility] [facility] Comment on above: Performed By: #### 4 6447, 98371 ####[place] [id number] [address] BK VIRUS QUANTITATION PCR BL OODon 08-26-2017 BKV QUANT PCR Not detected Normal The [facility] Comment on above: Result Comment: Meth od: BK virus was measured by quantitative polymerase chain reactionusing a TaqMan probe targeting the polyomavirus BK LIQUID COMPOUNDER-1 gene.The lower limit of quantitation of the assay is 500 copies of BK genomeper milliliter of plasma or urine, and any detectable BK DNA below thatlevel is reported as: Detected, <500 copies/ml. Serial BK virusmeasurement can be used to monitor disease activity. (Reference:Kelsie vaughanl. J CLIN MICRO 2004; 42:3577-6285).This test was developed and its performance characteristics determinedby the [facility]. It has not been approvedby the [place] Food and Drug Administration. However, such approval is notrequired for clinical implementation, and test results have been shownto be clinically useful. This laboratory is CAP accredited and CLIAcertified to perform high complexity testing. Performed By: #### 4 1000, 14216, 60705, 57708, 50494, 91651 ####[facility] LOG 10 COPIES Not detected Normal The [facility] Comment on above: Performed By: #### 4 1000, 79127, 26104, 59983, 83950, 89221 ####[facility] CBC W/DIFFon 08-26-2017 ABS BASOPHILS 0.0 10*3/uL Normal 0.0-0.2 The [facility] Comment on above: Performed By: #### 4 1000, 61646, 83998, 28171, 63427, 06666 ####[facility]3000 [facility].[address] ABS IMM GRANS 0.0 10*3/uL Normal 0.0-0.2 The [facility] Comment on above: Performed By: #### 4 1000, 26299, 42762, 06573, 74528, 74309 ####[facility]3000 [facility].[address] ABS NEUTROPHILS 4.5 10*3/uL Normal 1.6-7.6 The [facility] Comment on above: Performed By: #### 4 1000, 97609, 06117, 15842, 17607, 14355 ####[facility]3000 [facility].[address] Basophils Auto #/vol (Bld) 0.2 % Normal 0.0-1.0 The [facility] Comment on above: Performed By: #### 4 1000, 77641, 38552, 64688, 30322, 43723 ####[facility]3000 [facility].[address] Eosinophils Auto #/vol (Bld) 0.2 10*3/uL Normal 0.0-0.5 The [facility] Comment on above: Performed By: #### 4 1000, 50683, 87444, 91868, 48489, 18932 ####[facility] Eosinophils/100 WBC Auto (Bld) 2.4 % Normal 0.0-6.0 The [facility] Comment on above: Performed By: #### 4 1000, 07546, 14023, 84180, 00548, 72136 ####[facility] Erythrocyte distribution width Auto Ratio (RBC) 14.0 % Normal 11.5-15.0 The [facility] Comment on above: Performed By: #### 4 1000, 21535, 15876, 63031, 08000, 49387 ####[facility] Hematocrit Auto Volume Fraction (Bld) 44.9 % Normal 36.0-45.0 The [facility] Comment on above: Performed By: #### 4 1000, 46797, 98281, 73954, 63051, 23981 ####[facility] Hemoglobin mass conc (Bld) 14.9 g/dL Normal 12.0-15.0 The [facility] Comment on above: Performed By: #### 4 1000, 23277, 36661, 24500, 64328, 37561 ####[facility] IMMATURE GRANS 0.5 % Normal 0.0-1.[address] Comment on above: Performed By: #### 4 1000, 87203, 69331, 61973, 87802, 14327 ####[facility] Lymphocytes Auto #/vol (Bld) 1.0 10*3/uL Low 1.2-4.0 The [facility] Comment on above: Performed By: #### 4 1000, 60504, 03632, 74157, 25297, 76925 ####[facility] Lymphocytes/100 WBC Auto (Bld) 15.8 % Low 20.0-45.0 The [facility] Comment on above: Performed By: #### 4 1000, 33831, 44867, 91499, 81558, 97645 ####[facility] [facility].[address] MCH Auto Entitic mass (RBC) 29.1 pg Normal 27.0-33.0 The [facility] Comment on above: Performed By: #### 4 1000, 62622, 69993, 46524, 74251, 87775 ####[facility] MCHC Auto mass conc (RBC) 33.2 g/dL Normal 32.0-35.0 The [facility] Comment on above: Performed By: #### 4 1000, 98277, 89280, 68001, 21427, 73977 ####[facility]3000 [facility].[address] MCV Auto Entitic volume (RBC) 87.7 fL Normal 82.0-98.0 The [facility] Comment on above: Performed By: #### 4 1000, 05989, 23480, 90224, 13157, 17804 ####[facility] [facility].[address] Monocytes Auto #/vol (Bld) 0.7 10*3/uL Normal 0.1-1.0 The [facility] Comment on above: Performed By: #### 4 1000, 11207, 20374, 95018, 55918, 75303 ####[facility] [place] [address], [facility] MONOS 10.6 % Normal 5.0-12.0 The [facility] Comment on above: Performed By: #### 4 1000, 50956, 92547, 99005, 82917, 50278 ####[facility] [place] [address], [facility] Neutrophils/100 WBC Auto (Bld) 70.5 % Normal 40.0-72.0 The [facility] Comment on above: Performed By: #### 4 1000, 71821, 15490, 13798, 27580, 09672 ####[facility] [place] [address], [facility] Nucleated RBC/100 WBC Ratio (Bld) 0 % Normal 0-0 The [facility] Comment on above: Performed By: #### 4 1000, 21754, 34350, 71072, 49835, 07040 ####[facility] [place] [address], [facility] PLAT CNT 231 10*3/uL Normal 150-400 The [facility] Comment on above: Performed By: #### 4 1000, 29747, 71371, 38082, 73102, 88436 ####[facility] [place] [address], [facility] RBC Auto #/vol (Bld) 5.12 10*6/uL High 3.80-5.00 The [facility] Comment on above: Performed By: #### 4 1000, 10401, 07588, 71647, 57680, 26592 ####[facility] [place] [address], [facility] WBC Auto #/vol (Bld) 6.32 10*3/uL Normal 4.00-10.60 The [facility] Comment on above: Performed By: #### 4 1000, 87874, 95211, 22275, 97561, 93139 ####[facility] COMP METABOLIC PANELon 08-26 Albumin mass conc 4.3 g/dL Normal 3.5-5.7 The [facility] Comment on above: Performed By: #### 4 1000, 73663, 54584, 06035, 61663, 03640 ####[facility] [place] [address], [facility] ALKALINE PHOSPH 125 IU/L High 34-104 The [facility] Comment on above: Performed By: #### 4 1000, 53328, 68610, 43953, 03191, 87592 ####[facility] [place] [address], [facility] ALT enzyme act/vol 17 U/L Normal 7-52 The [facility] Comment on above: Performed By: #### 4 1000, 75384, 43674, 09666, 39869, 79469 ####[facility] AST enzyme act/vol 23 U/L Normal 13-39 The [facility] Comment on above: Performed By: #### 4 1000, 32092, 50320, 00166, 70197, 27803 ####[facility] [place] [address], [facility] Bilirubin mass conc 0.4 mg/dL Normal 0.3-1.0 The [facility] Comment on above: Performed By: #### 4 1000, 05247, 40585, 60031, 37486, 51621 ####[facility] [place] [address], [facility] Calcium mass conc 9.6 mg/dL Normal 8.6-10.3 The [facility] Comment on above: Performed By: #### 4 1000, 80631, 68412, 89731, 70721, 29217 ####[facility] [place] [address], [place] Chloride molar conc 104 mmol/L Normal 98-107 [facility] Comment on above: Performed By: #### 4 1000, 83061, 35480, 66836, 48707, 52730 ####[facility] [place] [address], [place] CO2 molar conc 27 mmol/L Normal 21-31 [facility] Comment on above: Performed By: #### 4 1000, 44616, 29125, 61520, 03247, 60513 ####[facility] [place] [address], [facility] Creatinine mass conc 0.77 mg/dL Normal 0.60-1.20 [facility] Comment on above: Performed By: #### 4 1000, 77771, 26598, 88783, 35972, 69906 ####[facility] [place] [address], [place] GFR/1.73 sq M predicted among blacks MDRD vol rate/area (S/P/Bld) mL/min/{1.73_m2} Normal >60 The [facility] Comment on above: Performed By: #### 4 1000, 37507, 19201, 08305, 58761, 97577 ####[facility] [place] [address], [place] GFR/1.73 sq M predicted among non-blacks MDRD vol rate/area (S/P/Bld) mL/min/{1.73_m2} Normal >60 The [facility] Comment on above: Performed By: #### 4 1000, 48606, 49611, 82727, 42147, 14515 ####[facility] [place] [address], [place] Glucose mass conc 95 mg/dL Normal 70-100 [facility] Comment on above: Performed By: #### 4 1000, 78282, 64965, 91591, 75167, 31193 ####[facility] Potassium molar conc 4.1 mmol/L Normal 3.5-5.1 The [facility] Comment on above: Performed By: #### 4 1000, 97821, 57984, 17784, 61826, 77293 ####[facility] [place] [address], [facility] Protein mass conc 7.3 g/dL Normal 6.0-8.3 The [facility] Comment on above: Performed By: #### 4 1000, 82556, 31195, 78686, 36088, 37296 ####[facility] [place] [address], [facility] Sodium molar conc 139 mmol/L Normal 136-145 The [facility] Comment on above: Performed By: #### 4 1000, 73393, 39273, 39551, 56200, 71329 ####[facility] [place] [address], [facility] Urea nitrogen mass conc 12 mg/dL Normal 7-25 The [facility] Comment on above: Performed By: #### 4 1000, 23799, 85036, 96268, 77426, 16081 ####[facility] DIRECT BILIon 08-26-2017 Bilirubin.direct mass conc 0.1 mg/dL Normal 0.0-0.2 The [facility] Comment on above: Performed By: #### 4 1000, 99019, 94323, 38740, 10546, 73784 ####[facility] [place] [address], [facility] EVEROLIMUS [id number] 8 EVEROLIMUS 5.6 ng/mL Normal The [facility] Comment on above: Result Comment: Ther apeutic Range:Kidney transplant (in combination with Cyclosporine):3-8 ng/mLLiver transplant (in combination with Tacrolimus):3-8 ng/mLToxic value: Greater than 15 ng/mLEverolimus marketed as Zortress is FDA approved forprophylaxis of organ rejection in adult patients receivinga kidney and liver transplant.Everolimus marketed as Afinitor is FDA approved for thetreatment of renal cell carcinoma and for the treatment ofsubependymal giant cell astrocytoma (SEGA) associated withtuberous sclerosis (TS) in patients who are not candidatesfor curative surgical resection. The suggested therapeuticrange for treatment of SEGA is 5-15 ng/mL, which is basedon a predose (trough) specimen.The optimal therapeutic range for a given patient maydiffer from this suggested range based on the indicationfor therapy, treatment phase (initiation or maintenance),use in combination with other drugs, time of specimencollection relative to prior dose, type of transplantedorgan, and/or the therapeutic approach of the transplantcenter.Test developed and characteristics determined by [facility]. See Compliance Statement B: FreeATM/CSPerformed by [employer],[address] [place] [id number] kts.[employer], Leonid Antonio MD - Lab. Director HEMOGLOBIN A1Con 08-26-2017 Glucose mass conc 114 mg/dL Normal 70-126 The [facility] Comment on above: Performed By: #### 4 1000, 70275, 42361, 00472, 59687, 73129 ####[facility] [facility] [place] [place] [address], [facility] Hemoglobin A1c/Hemoglobin.tota l mass fraction (Bld) 5.6 % Normal 4.0-6.0 The [facility] Comment on above: Performed By: #### 4 1000, 01415, 37849, 02551, 68356, 00582 ####[facility] [facility] [place] [address], [place] LIPID PROFILEon 08-26-2017 Cholesterol in HDL mass conc 49 mg/dL Normal 23-92 The [facility] Comment on above: Result Comment: Slig ht variation in normal range could be due to gender and/or age.HDL CHOLESTEROL REFERENCE RANGE:20 years and older Cardiovascular Risk> or =60 mg/dL [id number] TO 59 mg/dL Low Risk<40 mg/dL High Risk Performed By: #### 4 1000, 73759, 60709, 40876, 96751, 27743 ####[facility] [place] [address], [facility] Cholesterol in LDL mass conc 76 mg/dL Normal 0-130 The [facility] Comment on above: Result Comment: LDL IS A CALCULATIONLDL IS ONLY VALID IF THE TRIG IS LESS THAN 400. Performed By: #### 4 1000, 20398, 01288, 25448, 84986, 78417 ####[facility] [place] [address], [facility] Cholesterol mass conc 152 mg/dL Normal 120-200 [facility] Comment on above: Result Comment: CHOL ESTEROL REFERENCE RANGE:20 YEARS AND OLDER CARDIOVASCULAR RISKLess than 200 mg/dl Low [id number] to 239 mg/dl Borderline Raxs499 mg/dl and greater High Risk Performed By: #### 4 1000, 07967, 98463, 35140, 72774, 49577 ####[facility] [place] [address], [facility] Cholesterol.total/C holesterol in HDL mass ratio 3.1 {ratio} Normal .0-4.5 The [facility] Comment on above: Performed By: #### 4 1000, 07132, 16286, 08407, 08655, 65894 ####[facility] [place] [address], [place] NON-HDL CHOLESTEROL 103 mg/dL Normal [facility] Comment on above: Performed By: #### 4 1000, 87390, 80368, 61355, 23105, 25472 ####[facility] [place] [address], [place] Triglyceride mass conc 133 mg/dL Normal 40-149 The [facility] Comment on above: Result Comment: TRIG LYCERIDE REFERENCE RANGE:20 YEARS AND OLDER CARDIOVASCULAR RISKLESS THAN 150 mg/dl LOW CHFY168 TO 199 mg/dl BORDERLINE HYAX744 mg/dl AND GREATER HIGH RISK Performed By: #### 4 1000, 76814, 65252, 68935, 39629, 08392 ####[facility] VLDL CHOL 27 mg/dL Normal 0-40 The [facility] Comment on above: Performed By: #### 4 1000, 49443, 54690, 08319, 93672, 36405 ####[facility] MAGNESIUM BLOODon 08-26-2017 Magnesium mass conc 1.9 mg/dL Normal 1.9-2.7 The [facility] Comment on above: Performed By: #### 4 1000, 04589, 34730, 91070, 99824, 26646 ####[facility] PHOSPHORUS BLOODon 8 Phosphate mass conc 3.4 mg/dL Normal 2.5-5.0 The [facility] Comment on above: Performed By: #### 4 1000, 03931, 80665, 16165, 90622, 29839 ####[facility] TACROLIMUSon 08-26-2017 Tacrolimus mass conc (Bld) 4.3 ng/mL Low 5.0-20.0 The [facility] Comment on above: Result Comment: The [employer] Tacrolimus assay is a delayed one-step immunoassayfor the quantitative determination of tacrolimus in human whole bloodusing the chemiluminescent microparticle immunoassay (CMIA) technologywith flexible assay protocols, referred to as Chemiflex. Performed By: #### 4 1000, 38926, 78084, 82988, 98160, 01108 ####[facility] URIC ACID BLOODon 08-26-2017 Urate mass conc 4.6 mg/dL Normal 2.3-6.6 The [facility] Comment on above: Performed By: #### 4 1000, 16161, 82251, 01623, 89625, 78278 ####[facility] CBC W/DIFFon 07-23-2017 ABS BASOPHILS 0.0 10*3/uL Normal 0.0-0.2 The [facility] Comment on above: Performed By: #### 4 1000, 69915, 58425, 19275, 31759, 29077 ####[facility] ABS IMM GRANS 0.0 10*3/uL Normal 0.0-0.2 The [facility] Comment on above: Performed By: #### 4 1000, 63597, 43996, 41487, 09381, 46211 ####[facility] ABS NEUTROPHILS 4.4 10*3/uL Normal 1.6-7.6 The [facility] Comment on above: Performed By: #### 4 1000, 48278, 48448, 25150, 45595, 08424 ####[facility] Basophils Auto #/vol (Bld) 0.2 % Normal 0.0-1.0 The [facility] Comment on above: Performed By: #### 4 1000, 99066, 50618, 71653, 87634, 85450 ####[facility] Eosinophils Auto #/vol (Bld) 0.1 10*3/uL Normal 0.0-0.5 The [facility] Comment on above: Performed By: #### 4 1000, 36765, 23985, 03254, 53544, 48335 ####[facility] Eosinophils/100 WBC Auto (Bld) 2.1 % Normal 0.0-6.0 The [facility] Comment on above: Performed By: #### 4 1000, 09236, 03243, 87427, 89773, 21162 ####[facility] Erythrocyte distribution width Auto Ratio (RBC) 13.7 % Normal 11.5-15.0 The [facility] Comment on above: Performed By: #### 4 1000, 94713, 38651, 07090, 68905, 82670 ####[facility] Hematocrit Auto Volume Fraction (Bld) 44.4 % Normal 36.0-45.0 The [facility] Comment on above: Performed By: #### 4 1000, 68154, 38148, 46379, 72061, 26548 ####[facility] Hemoglobin mass conc (Bld) 14.7 g/dL Normal 12.0-15.0 The [facility] Comment on above: Performed By: #### 4 1000, 54770, 09498, 69697, 80068, 61535 ####[facility] IMMATURE GRANS 0.5 % Normal 0.0-1.0 The [facility] Comment on above: Performed By: #### 4 1000, 49427, 96904, 81705, 05149, 27395 ####[facility] Lymphocytes Auto #/vol (Bld) 1.0 10*3/uL Low 1.2-4.0 The [facility] Comment on above: Performed By: #### 4 1000, 01618, 09005, 22454, 74528, 69361 ####[facility]3000 [facility].[address] Lymphocytes/100 WBC Auto (Bld) 15.5 % Low 20.0-45.0 The [facility] Comment on above: Performed By: #### 4 1000, 07397, 51522, 00170, 96826, 24737 ####[facility] MCH Auto Entitic mass (RBC) 28.9 pg Normal 27.0-33.0 The [facility] Comment on above: Performed By: #### 4 1000, 08595, 18530, 86576, 11636, 18712 ####[facility]3000 [facility].[address] MCHC Auto mass conc (RBC) 33.1 g/dL Normal 32.0-35.0 The [facility] Comment on above: Performed By: #### 4 1000, 14028, 52177, 60940, 42751, 07600 ####[facility]3000 [facility].[address] MCV Auto Entitic volume (RBC) 87.4 fL Normal 82.0-98.0 The [facility] Comment on above: Performed By: #### 4 1000, 95994, 80575, 68762, 42464, 75318 ####[facility]3000 [facility].[address] Monocytes Auto #/vol (Bld) 0.8 10*3/uL Normal 0.1-1.0 The [facility] Comment on above: Performed By: #### 4 1000, 75437, 46271, 35536, 10753, 54272 ####[facility] MONOS 12.3 % High 5.0-12.0 The [facility] Comment on above: Performed By: #### 4 1000, 91427, 45526, 74106, 41208, 17077 ####[facility] Neutrophils/100 WBC Auto (Bld) 69.4 % Normal 40.0-72.0 The [facility] Comment on above: Performed By: #### 4 1000, 23670, 14217, 92725, 01516, 92340 ####[facility] Nucleated RBC/100 WBC Ratio (Bld) 0 % Normal 0-0 The [facility] Comment on above: Performed By: #### 4 1000, 71699, 88890, 17012, 39836, 02917 ####[facility] PLAT CNT 218 10*3/uL Normal 150-400 The [facility] Comment on above: Performed By: #### 4 1000, 36635, 41823, 45384, 72143, 44864 ####[facility] RBC Auto #/vol (Bld) 5.08 10*6/uL High 3.80-5.00 The [facility] Comment on above: Performed By: #### 4 1000, 51656, 40106, 29045, 42498, 85355 ####[facility] WBC Auto #/vol (Bld) 6.3 10*3/uL Normal 4.0-10.6 The [facility] Comment on above: Performed By: #### 4 1000, 27334, 50695, 60881, 55168, 18879 ####[facility] [place] [address], [facility] COMP METABOLIC PANELon 07-23 Albumin mass conc 4.2 g/dL Normal 3.5-5.7 The [facility] Comment on above: Performed By: #### 4 1000, 24473, 29506, 88857, 01778, 96308 ####[facility] [place] [address], [facility] ALKALINE PHOSPH 113 IU/L High 34-104 The [facility] Comment on above: Performed By: #### 4 1000, 54959, 80765, 97534, 76961, 66768 ####[facility] [place] [address], [facility] ALT enzyme act/vol 23 U/L Normal 7-52 The [facility] Comment on above: Performed By: #### 4 1000, 35230, 98249, 72592, 57982, 59239 ####[facility] [place] [address], [facility] AST enzyme act/vol 25 U/L Normal 13-39 The [facility] Comment on above: Performed By: #### 4 1000, 56819, 06239, 85613, 55906, 90108 ####[facility] [place] [address], [facility] Bilirubin mass conc 0.6 mg/dL Normal 0.3-1.0 The [facility] Comment on above: Performed By: #### 4 1000, 18222, 54693, 95177, 98888, 35037 ####[facility] [place] [address], [facility] Calcium mass conc 9.6 mg/dL Normal 8.6-10.3 The [facility] Comment on above: Performed By: #### 4 1000, 02545, 23079, 80960, 62025, 11857 ####[facility] [id number], [facility] Chloride molar conc 104 mmol/L Normal 98-107 [facility] Comment on above: Performed By: #### 4 1000, 48336, 37623, 45517, 54867, 60578 ####[facility] [place] [address], [facility] CO2 molar conc 25 mmol/L Normal 21-31 [facility] Comment on above: Performed By: #### 4 1000, 47501, 52714, 37446, 52411, 65949 ####[facility] [place] [address], [facility] Creatinine mass conc 0.80 mg/dL Normal 0.60-1.20 [facility] Comment on above: Performed By: #### 4 1000, 90125, 93983, 37184, 25607, 32627 ####[facility] [place] [address], [facility] GFR/1.73 sq M predicted among blacks MDRD vol rate/area (S/P/Bld) mL/min/{1.73_m2} Normal >60 [facility] Comment on above: Performed By: #### 4 1000, 92485, 86952, 38818, 89616, 59833 ####[facility] [place] [address], [facility] GFR/1.73 sq M predicted among non-blacks MDRD vol rate/area (S/P/Bld) mL/min/{1.73_m2} Normal >60 [facility] Comment on above: Performed By: #### 4 1000, 94867, 86780, 66017, 28076, 12889 ####[facility] [place] [address], [facility] Glucose mass conc 91 mg/dL Normal 70-100 [facility] Comment on above: Performed By: #### 4 1000, 17027, 69435, 48929, 29690, 60796 ####[facility] [place] [address], [facility] Potassium molar conc 4.0 mmol/L Normal 3.5-5.1 [facility] Comment on above: Performed By: #### 4 1000, 62371, 52192, 29232, 18561, 55382 ####[facility] [place] [address], [facility] Protein mass conc 6.8 g/dL Normal 6.0-8.3 [facility] Comment on above: Performed By: #### 4 1000, 99809, 20437, 56477, 06683, 27592 ####[facility] [place] [address], [facility] Sodium molar conc 140 mmol/L Normal 136-145 [facility] Comment on above: Performed By: #### 4 1000, 70576, 14961, 29181, 35622, 24681 ####[facility] Urea nitrogen mass conc 16 mg/dL Normal 7-25 [facility] Comment on above: Performed By: #### 4 1000, 25325, 19894, 77506, 59115, 93718 ####[facility] DIRECT BILIon 07-23-2017 Bilirubin.direct mass conc 0.2 mg/dL Normal 0.0-0.2 [facility] Comment on above: Performed By: #### 4 1000, 73503, 87700, 10902, 48690, 15255 ####[facility] EVEROLIMUS [id number] 8 EVEROLIMUS 5.3 ng/mL Normal [facility] Comment on above: Result Comment: Ther apeutic Range:Kidney transplant (in combination with Cyclosporine):3-8 ng/mLLiver transplant (in combination with Tacrolimus):3-8 ng/mLToxic value: Greater than 15 ng/mLEverolimus marketed as Zortress is FDA approved forprophylaxis of organ rejection in adult patients receivinga kidney and liver transplant.Everolimus marketed as Afinitor is FDA approved for thetreatment of renal cell carcinoma and for the treatment ofsubependymal giant cell astrocytoma (SEGA) associated withtuberous sclerosis (TS) in patients who are not candidatesfor curative surgical resection. The suggested therapeuticrange for treatment of SEGA is 5-15 ng/mL, which is basedon a predose (trough) specimen.The optimal therapeutic range for a given patient maydiffer from this suggested range based on the indicationfor therapy, treatment phase (initiation or maintenance),use in combination with other drugs, time of specimencollection relative to prior dose, type of transplantedorgan, and/or the therapeutic approach of the transplantcenter.Test developed and characteristics determined by [facility]. See Compliance Statement B: FreeATM/CSPerformed by [employer],[address] [place] [id number] ife.FreeATM, Leonid Antonio MD - Lab. Director LIPID PROFILEon 07-23-2017 Cholesterol in HDL mass conc 45 mg/dL Normal 23-92 [facility] Comment on above: Result Comment: Slig ht variation in normal range could be due to gender and/or age.HDL CHOLESTEROL REFERENCE RANGE:20 years and older Cardiovascular Risk> or =60 mg/dL Bqpxmypsp12 TO 59 mg/dL Low Risk<40 mg/dL High Risk Performed By: #### 4 1000, 64476, 91569, 82299, 50939, 58872 ####[facility] [address], [facility] Cholesterol in LDL mass conc 79 mg/dL Normal 0-130 [facility] Comment on above: Result Comment: LDL IS A CALCULATIONLDL IS ONLY VALID IF THE TRIG IS LESS THAN 400. Performed By: #### 4 1000, 51553, 72078, 78390, 38612, 81475 ####[facility] [place] [address], [facility] Cholesterol mass conc 141 mg/dL Normal 120-200 [facility] Comment on above: Result Comment: CHOL ESTEROL REFERENCE RANGE:20 YEARS AND OLDER CARDIOVASCULAR RISKLess than 200 mg/dl Low Srgs799 to 239 mg/dl Borderline Aalm756 mg/dl and greater High Risk Performed By: #### 4 1000, 29260, 83946, 73337, 09345, 45347 ####[facility] [place] [address], [facility] Cholesterol.total/C holesterol in HDL mass ratio 3.1 {ratio} Normal .0-4.5 [facility] Comment on above: Performed By: #### 4 1000, 30152, 29839, 86022, 32433, 05659 ####[facility] NON-HDL CHOLESTEROL 96 mg/dL Normal [facility] Comment on above: Performed By: #### 4 1000, 06955, 06588, 11839, 63463, 40083 ####[facility] [facility] [place] [place] [address], [facility] Triglyceride mass conc 83 mg/dL Normal 40-149 [facility] Comment on above: Result Comment: TRIG LYCERIDE REFERENCE RANGE:20 YEARS AND OLDER CARDIOVASCULAR RISKLESS THAN 150 mg/dl LOW [id number] TO 199 mg/dl BORDERLINE MDQC623 mg/dl AND GREATER HIGH RISK Performed By: #### 4 1000, 60329, 35624, 58042, 67436, 71610 ####[facility] [place] [address], [facility] VLDL CHOL 17 mg/dL Normal 0-40 [facility] Comment on above: Performed By: #### 4 1000, 01186, 79188, 31753, 76230, 17566 ####[facility] [place] [address], [facility] MAGNESIUM BLOODon 07-23-2017 Magnesium mass conc 2.0 mg/dL Normal 1.9-2.7 [facility] Comment on above: Performed By: #### 4 1000, 10416, 68944, 08651, 45638, 91486 ####[facility] [facility].[address] PHOSPHORUS BLOODon 8 Phosphate mass conc 4.0 mg/dL Normal 2.5-5.0 [facility] Comment on above: Performed By: #### 4 1000, 38732, 95944, 49572, 26609, 08327 ####[facility] [facility].[address] TACROLIMUSon 07-23-2017 Tacrolimus mass conc (Bld) 4.6 ng/mL Low 5.0-20.0 [facility] Comment on above: Result Comment: The [employer]ELOPER Tacrolimus assay is a delayed one-step immunoassayfor the quantitative determination of tacrolimus in human whole bloodusing the chemiluminescent microparticle immunoassay (CMIA) technologywith flexible assay protocols, referred to as Chemiflex. Performed By: #### 4 1000, 96157, 23362, 79053, 76635, 22279 ####[facility] [facility].[address] URIC ACID BLOODon 07-23-2017 Urate mass conc 4.7 mg/dL Normal 2.3-6.6 The [facility] Comment on above: Performed By: #### 4 1000, 48791, 48866, 09656, 91718, 48517 ####[facility] [place] [address], [facility] CBC W/DIFFon 06-20-2017 ABS BASOPHILS 0.0 10*3/uL Normal 0.0-0.2 The [facility] Comment on above: Performed By: #### 4 1000, 33710, 70866, 93221, 56101, 44042 ####[facility] [facility].[address] ABS IMM GRANS 0.0 10*3/uL Normal 0.0-0.2 The [facility] Comment on above: Performed By: #### 4 1000, 38850, 20219, 89369, 34108, 91797 ####[facility] ABS NEUTROPHILS 4.2 10*3/uL Normal 1.6-7.6 The [facility] Comment on above: Performed By: #### 4 1000, 64898, 67410, 01326, 09535, 11296 ####[facility] Basophils Auto #/vol (Bld) 0.2 % Normal 0.0-1.0 [facility] Comment on above: Performed By: #### 4 1000, 42518, 53138, 08220, 69521, 21578 ####[facility] Eosinophils Auto #/vol (Bld) 0.1 10*3/uL Normal 0.0-0.5 [facility] Comment on above: Performed By: #### 4 1000, 79528, 33142, 97246, 59697, 81521 ####[place] [address] [address] Eosinophils/100 WBC Auto (Bld) 1.5 % Normal 0.0-6.0 [facility] Comment on above: Performed By: #### 4 1000, 94793, 62827, 87462, 43969, 79366 ####[facility] Erythrocyte distribution width Auto Ratio (RBC) 13.4 % Normal 11.5-15.0 [facility] Comment on above: Performed By: #### 4 1000, 43420, 27351, 56384, 69856, 11309 ####[facility] [facility].[address] Hematocrit Auto Volume Fraction (Bld) 44.9 % Normal 36.0-45.0 [facility] Comment on above: Performed By: #### 4 1000, 89712, 10636, 50809, 87147, 13740 ####[facility] [facility].[address] Hemoglobin mass conc (Bld) 14.9 g/dL Normal 12.0-15.0 [facility] Comment on above: Performed By: #### 4 1000, 12797, 54220, 63939, 29616, 42635 ####[facility] [facility].[address] IMMATURE GRANS 0.2 % Normal 0.0-1.[address] [facility] Comment on above: Performed By: #### 4 1000, 03128, 31790, 12135, 93229, 19233 ####[facility] [facility].[address] Lymphocytes Auto #/vol (Bld) 1.1 10*3/uL Low 1.2-4.0 [facility] Comment on above: Performed By: #### 4 1000, 40829, 24148, 52711, 66464, 33525 ####[facility] [facility].[address] Lymphocytes/100 WBC Auto (Bld) 17.4 % Low 20.0-45.0 [facility] Comment on above: Performed By: #### 4 1000, 86519, 64854, 31919, 09870, 90720 ####[facility] [facility].[address] MCH Auto Entitic mass (RBC) 29.2 pg Normal 27.0-33.0 [facility] Comment on above: Performed By: #### 4 1000, 97572, 69881, 77789, 83573, 77850 ####[facility] MCHC Auto mass conc (RBC) 33.2 g/dL Normal 32.0-35.0 [facility] Comment on above: Performed By: #### 4 1000, 26896, 42974, 98087, 90211, 38591 ####[facility] MCV Auto Entitic volume (RBC) 87.9 fL Normal 82.0-98.0 The [facility] Comment on above: Performed By: #### 4 1000, 47511, 29487, 95571, 65858, 64459 ####[facility] Monocytes Auto #/vol (Bld) 0.7 10*3/uL Normal 0.1-1.0 The [facility] Comment on above: Performed By: #### 4 1000, 73923, 74196, 54984, 09562, 05797 ####[facility] MONOS 11.3 % Normal 5.0-12.0 [facility] Comment on above: Performed By: #### 4 1000, 02453, 55202, 36719, 34843, 64193 ####[facility] Neutrophils/100 WBC Auto (Bld) 69.4 % Normal 40.0-72.0 [facility] Comment on above: Performed By: #### 4 1000, 15767, 93589, 33550, 98468, 61244 ####[facility] Nucleated RBC/100 WBC Ratio (Bld) 0 % Normal 0-0 [facility] Comment on above: Performed By: #### 4 1000, 59054, 48841, 34340, 17235, 75822 ####[facility] [place] [address], [facility] PLAT CNT 198 10*3/uL Normal 150-400 The [facility] Comment on above: Performed By: #### 4 1000, 92437, 31583, 94125, 74956, 87949 ####[facility] RBC Auto #/vol (Bld) 5.11 10*6/uL High 3.80-5.00 The [facility] Comment on above: Performed By: #### 4 1000, 91193, 14082, 07880, 26104, 19387 ####[facility] WBC Auto #/vol (Bld) 6.0 10*3/uL Normal 4.0-10.6 [facility] Comment on above: Performed By: #### 4 1000, 48154, 61284, 13721, 04294, 76475 ####[facility] [facility].[address] COMP METABOLIC PANELon 06-20 Albumin mass conc 4.4 g/dL Normal 3.5-5.7 The [facility] Comment on above: Performed By: #### 4 1000, 22631, 56614, 83451, 27356, 19013 ####[facility] ALKALINE PHOSPH 133 IU/L High 34-104 The [facility] Comment on above: Performed By: #### 4 1000, 23054, 41688, 22164, 61215, 97094 ####[facility] ALT enzyme act/vol 16 U/L Normal 7-52 The [facility] Comment on above: Performed By: #### 4 1000, 10911, 64232, 27043, 96893, 32187 ####[facility] [place] [address], [facility] AST enzyme act/vol 21 U/L Normal 13-39 The [facility] Comment on above: Performed By: #### 4 1000, 20619, 96171, 54729, 29615, 42309 ####[facility] [place] [address], [facility] Bilirubin mass conc 0.8 mg/dL Normal 0.3-1.0 The [facility] Comment on above: Performed By: #### 4 1000, 63222, 00607, 82129, 87319, 38806 ####[facility] [place] [address], [facility] Calcium mass conc 10.0 mg/dL Normal 8.6-10.3 The [facility] Comment on above: Performed By: #### 4 1000, 59238, 39313, 03077, 52361, 10705 ####[facility] [place] [address], [facility] Chloride molar conc 106 mmol/L Normal 98-107 The [facility] Comment on above: Performed By: #### 4 1000, 45094, 22652, 80777, 50977, 28621 ####[facility] [place] [address], [place] CO2 molar conc 27 mmol/L Normal 21-31 The [facility] Comment on above: Performed By: #### 4 1000, 07065, 77077, 58981, 53640, 34588 ####[facility] [place] [address], [place] Creatinine mass conc 0.74 mg/dL Normal 0.60-1.20 The [facility] Comment on above: Performed By: #### 4 1000, 46593, 32988, 12052, 20448, 29068 ####[facility] [place] [address], [place] GFR/1.73 sq M predicted among blacks MDRD vol rate/area (S/P/Bld) mL/min/{1.73_m2} Normal >60 The [facility] Comment on above: Performed By: #### 4 1000, 50268, 43170, 03316, 71427, 64006 ####[facility] [place] [address], [place] GFR/1.73 sq M predicted among non-blacks MDRD vol rate/area (S/P/Bld) mL/min/{1.73_m2} Normal >60 The [facility] Comment on above: Performed By: #### 4 1000, 43953, 23423, 03489, 27188, 72016 ####[facility] [place] [address], [place] Glucose mass conc 95 mg/dL Normal 70-100 The [facility] Comment on above: Performed By: #### 4 1000, 64799, 99534, 97558, 89004, 42943 ####[facility] [place] [address], [place] Potassium molar conc 3.8 mmol/L Normal 3.5-5.1 The [facility] Comment on above: Performed By: #### 4 1000, 97934, 13377, 28633, 56733, 56778 ####[facility] [place] [address], [place] Protein mass conc 7.3 g/dL Normal 6.0-8.3 The [facility] Comment on above: Performed By: #### 4 1000, 94058, 95310, 84734, 02672, 49468 ####[facility] Sodium molar conc 137 mmol/L Normal 136-145 The [facility] Comment on above: Performed By: #### 4 1000, 63224, 95491, 48916, 72530, 83283 ####[facility] Urea nitrogen mass conc 16 mg/dL Normal 7-25 The [facility] Comment on above: Performed By: #### 4 1000, 49288, 11993, 05055, 25426, 69963 ####[facility] [facility].[address] DIRECT BILIon 06-20-2017 Bilirubin.direct mass conc 0.1 mg/dL Normal 0.0-0.2 [facility] Comment on above: Performed By: #### 4 1000, 97301, 91804, 46585, 28832, 46464 ####[facility] [facility].[address] EVEROLIMUS 82703er 8 EVEROLIMUS 6.7 ng/mL Normal The [facility] Comment on above: Result Comment: Ther apeutic Range:Kidney transplant (in combination with Cyclosporine):3-8 ng/mLLiver transplant (in combination with Tacrolimus):3-8 ng/mLToxic value: Greater than 15 ng/mLEverolimus marketed as Zortress is FDA approved forprophylaxis of organ rejection in adult patients receivinga kidney and liver transplant.Everolimus marketed as Afinitor is FDA approved for thetreatment of renal cell carcinoma and for the treatment ofsubependymal giant cell astrocytoma (SEGA) associated withtuberous sclerosis (TS) in patients who are not candidatesfor curative surgical resection. The suggested therapeuticrange for treatment of SEGA is 5-15 ng/mL, which is basedon a predose (trough) specimen.The optimal therapeutic range for a given patient maydiffer from this suggested range based on the indicationfor therapy, treatment phase (initiation or maintenance),use in combination with other drugs, time of specimencollection relative to prior dose, type of transplantedorgan, and/or the therapeutic approach of the transplantcenter.Test developed and characteristics determined by [facility]. See Compliance Statement B: ProductBio.BetterWorks (Closed)/CSPerformed by [employer],[address] [place] [address] jvc.FreeATM, Leonid Antonio MD - Lab. Director LIPID PROFILEon 06-20-2017 Cholesterol in HDL mass conc 45 mg/dL Normal 23-92 The [facility] Comment on above: Result Comment: Slig ht variation in normal range could be due to gender and/or age.HDL CHOLESTEROL REFERENCE RANGE:20 years and older Cardiovascular Risk> or =60 mg/dL Jlfsknbjg99 TO 59 mg/dL Low Risk<40 mg/dL High Risk Performed By: #### 4 1000, 05086, 65930, 49597, 84162, 31755 ####[facility] [place] [address], [facility] Cholesterol in LDL mass conc 58 mg/dL Normal 0-130 The [facility] Comment on above: Result Comment: LDL IS A CALCULATIONLDL IS ONLY VALID IF THE TRIG IS LESS THAN 400. Performed By: #### 4 1000, 57756, 57865, 71391, 17593, 45442 ####[facility] [facility] [place] [address], [facility] Cholesterol mass conc 126 mg/dL Normal 120-200 The [facility] Comment on above: Result Comment: CHOL ESTEROL REFERENCE RANGE:20 YEARS AND OLDER CARDIOVASCULAR RISKLess than 200 mg/dl Low Rocb715 to 239 mg/dl Borderline Msmh261 mg/dl and greater High Risk Performed By: #### 4 1000, 78385, 42839, 57811, 78875, 03188 ####[facility] [facility] [place] [address], [facility] Cholesterol.total/C holesterol in HDL mass ratio 2.8 {ratio} Normal .0-4.5 The [facility] Comment on above: Performed By: #### 4 1000, 76878, 55685, 82592, 91947, 42046 ####[facility] NON-HDL CHOLESTEROL 81 mg/dL Normal The [facility] Comment on above: Performed By: #### 4 1000, 45562, 37648, 16735, 68677, 95476 ####[facility], [place] [address] [place] [address] Triglyceride mass conc 113 mg/dL Normal 40-149 The [facility] Comment on above: Result Comment: TRIG LYCERIDE REFERENCE RANGE:20 YEARS AND OLDER CARDIOVASCULAR RISKLESS THAN 150 mg/dl LOW [id number] TO 199 mg/dl BORDERLINE SRMX561 mg/dl AND GREATER HIGH RISK Performed By: #### 4 1000, 08855, 81996, 99664, 54006, 77123 ####[facility] VLDL CHOL 23 mg/dL Normal 0-40 The [facility] Comment on above: Performed By: #### 4 1000, 47589, 74701, 46097, 77968, 57531 ####[facility] MAGNESIUM BLOODon 06-20-2017 Magnesium mass conc 1.9 mg/dL Normal 1.9-2.7 The [facility] Comment on above: Performed By: #### 4 1000, 28882, 39820, 30359, 55787, 77307 ####[facility] [place] [address], [facility] PHOSPHORUS BLOODon 8 Phosphate mass conc 3.1 mg/dL Normal 2.5-5.0 The [facility] Comment on above: Performed By: #### 4 1000, 36571, 86329, 27348, 56692, 40843 ####[facility] [place] [address], [facility] TACROLIMUSon 06-20-2017 Tacrolimus mass conc (Bld) 4.2 ng/mL Low 5.0-20.0 The [facility] Comment on above: Result Comment: The [employer] DEVELOPER Tacrolimus assay is a delayed one-step immunoassayfor the quantitative determination of tacrolimus in human whole bloodusing the chemiluminescent microparticle immunoassay (CMIA) technologywith flexible assay protocols, referred to as Chemiflex. Performed By: #### 4 1000, 73437, 96802, 70089, 46623, 68364 ####[facility] [facility].[address] URIC ACID BLOODon 06-20-2017 Urate mass conc 4.3 mg/dL Normal 2.3-6.6 The [facility] Comment on above: Performed By: #### 4 1000, 69633, 79492, 44490, 79078, 33236 ####[facility] [facility].[address] BK VIRUS QUANTITATION PCR BL OODon 05-27-2017 BKV QUANT PCR Not detected Normal The [facility] Comment on above: Result Comment: Meth od: BK virus was measured by quantitative polymerase chain reactionusing a TaqMan probe targeting the polyomavirus BK LIQUID COMPOUNDER-1 gene.The lower limit of quantitation of the assay is 500 copies of BK genomeper milliliter of plasma or urine, and any detectable BK DNA below thatlevel is reported as: Detected, <500 copies/ml. Serial BK virusmeasurement can be used to monitor disease activity. (Reference:Kelsie vaughanl. J CLIN MICRO 2004; 42:9655-2694).This test was developed and its performance characteristics determinedby the [facility]. It has not been approvedby the [place] Food and Drug Administration. However, such approval is notrequired for clinical implementation, and test results have been shownto be clinically useful. This laboratory is CAP accredited and CLIAcertified to perform high complexity testing. Performed By: #### 4 1000, 51385, 17504, 65058, 07110, 57919 ####[facility] [facility].[address] LOG 10 COPIES Not detected Normal The [facility] Comment on above: Performed By: #### 4 1000, 78275, 58750, 60407, 22511, 46071 ####[facility] [facility].[address] CBC W/DIFFon 05-27-2017 ABS BASOPHILS 0.0 10*3/uL Normal 0.0-0.2 The [facility] Comment on above: Performed By: #### 4 1000, 85140, 75574, 65159, 97662, 04637 ####[facility] [facility].[address] ABS IMM GRANS 0.0 10*3/uL Normal 0.0-0.2 The [facility] Comment on above: Performed By: #### 4 1000, 36947, 39560, 75389, 53063, 83585 ####[facility] ABS NEUTROPHILS 4.8 10*3/uL Normal 1.6-7.6 The [facility] Comment on above: Performed By: #### 4 1000, 77557, 64299, 97642, 91276, 75103 ####[facility] Basophils Auto #/vol (Bld) 0.0 % Normal 0.0-1.0 The [facility] Comment on above: Performed By: #### 4 1000, 96000, 56896, 56718, 44339, 70122 ####[facility] [facility].[address] Eosinophils Auto #/vol (Bld) 0.1 10*3/uL Normal 0.0-0.5 The [facility] Comment on above: Performed By: #### 4 1000, 10978, 65303, 29117, 83909, 28971 ####[facility] [place] [address], [place] Eosinophils/100 WBC Auto (Bld) 1.1 % Normal 0.0-6.0 The [facility] Comment on above: Performed By: #### 4 1000, 40567, 91010, 99149, 06518, 50504 ####[facility] Erythrocyte distribution width Auto Ratio (RBC) 13.5 % Normal 11.5-15.0 The [facility] Comment on above: Performed By: #### 4 1000, 91212, 45409, 24656, 14409, 65640 ####[facility] Hematocrit Auto Volume Fraction (Bld) 46.1 % High 36.0-45.0 The [facility] Comment on above: Performed By: #### 4 1000, 23946, 21100, 40909, 19476, 28677 ####[facility] [address] Hemoglobin mass conc (Bld) 15.0 g/dL Normal 12.0-15.0 The [facility] Comment on above: Performed By: #### 4 1000, 17575, 43402, 84364, 58824, 86456 ####[facility] IMMATURE GRANS 0.3 % Normal 0.0-1.0 The [facility] Comment on above: Performed By: #### 4 1000, 58353, 37559, 81404, 61963, 06904 ####[facility] Lymphocytes Auto #/vol (Bld) 1.0 10*3/uL Low 1.2-4.0 [facility] Comment on above: Performed By: #### 4 1000, 47696, 22589, 42896, 87635, 60240 ####[facility] Lymphocytes/100 WBC Auto (Bld) 15.7 % Low 20.0-45.0 [facility] Comment on above: Performed By: #### 4 1000, 32749, 72471, 38233, 42470, 51931 ####[facility]3000 [facility] MCH Auto Entitic mass (RBC) 28.8 pg Normal 27.0-33.0 [facility] Comment on above: Performed By: #### 4 1000, 43112, 06609, 14222, 56441, 04466 ####[facility]3000 [facility].[address] MCHC Auto mass conc (RBC) 32.5 g/dL Normal 32.0-35.0 [facility] Comment on above: Performed By: #### 4 1000, 88027, 86021, 24757, 31176, 14969 ####[facility] MCV Auto Entitic volume (RBC) 88.7 fL Normal 82.0-98.0 [facility] Comment on above: Performed By: #### 4 1000, 62948, 16446, 21692, 90773, 28037 ####[facility]3000 [facility].[address] Monocytes Auto #/vol (Bld) 0.8 10*3/uL Normal 0.1-1.0 [facility] Comment on above: Performed By: #### 4 1000, 69606, 18114, 55668, 55447, 47029 ####[facility] MONOS 11.4 % Normal 5.0-12.0 [facility] Comment on above: Performed By: #### 4 1000, 64595, 87044, 43841, 66688, 93023 ####[facility] Neutrophils/100 WBC Auto (Bld) 71.5 % Normal 40.0-72.0 [facility] Comment on above: Performed By: #### 4 1000, 08916, 49246, 35198, 56804, 75103 ####[facility] Nucleated RBC/100 WBC Ratio (Bld) 0 % Normal 0-0 [facility] Comment on above: Performed By: #### 4 1000, 47723, 73198, 22040, 73113, 83873 ####[facility] [facility].[address] PLAT CNT 199 10*3/uL Normal 150-400 The [facility] Comment on above: Performed By: #### 4 1000, 60991, 20714, 55279, 71395, 86272 ####[facility]3000 [facility].[address] RBC Auto #/vol (Bld) 5.20 10*6/uL High 3.80-5.00 [facility] Comment on above: Performed By: #### 4 1000, 50234, 00500, 99963, 42828, 78130 ####[facility]3000 [facility].[address] WBC Auto #/vol (Bld) 6.6 10*3/uL Normal 4.0-10.6 [facility] Comment on above: Performed By: #### 4 1000, 40640, 93289, 01555, 47740, 50562 ####[facility] [facility].[address] COMP METABOLIC PANELon 05-27 Albumin mass conc 4.6 g/dL Normal 3.5-5.7 [facility] Comment on above: Performed By: #### 4 1000, 11609, 08494, 97297, 48697, 40410 ####[facility] [place] [address], [facility] ALKALINE PHOSPH 105 IU/L High 34-104 The [facility] Comment on above: Performed By: #### 4 1000, 34752, 81342, 23121, 38446, 81133 ####[facility] [place] [address], [facility] ALT enzyme act/vol 20 U/L Normal 7-52 The [facility] Comment on above: Performed By: #### 4 1000, 91717, 85233, 41507, 25210, 29610 ####[facility] [facility] [place] [address], [facility] AST enzyme act/vol 23 U/L Normal 13-39 The [facility] Comment on above: Performed By: #### 4 1000, 71299, 01087, 69303, 56415, 23307 ####[facility] [facility] [place] [address], [facility] Bilirubin mass conc 0.6 mg/dL Normal 0.3-1.0 The [facility] Comment on above: Performed By: #### 4 1000, 88293, 08074, 17002, 60077, 80071 ####[facility] [place] [address], [facility] Calcium mass conc 9.8 mg/dL Normal 8.6-10.3 The [facility] Comment on above: Performed By: #### 4 1000, 23051, 05989, 51818, 43708, 79266 ####[facility] [facility] [place] [address], [facility] Chloride molar conc 106 mmol/L Normal 98-107 The [facility] Comment on above: Performed By: #### 4 1000, 72650, 92778, 42017, 17372, 11710 ####[facility] [place] [address], [facility] CO2 molar conc 30 mmol/L Normal 21-31 [facility] Comment on above: Performed By: #### 4 1000, 34570, 36239, 82844, 97723, 29214 ####[facility] [place] [address], [facility] Creatinine mass conc 0.80 mg/dL Normal 0.60-1.20 [facility] Comment on above: Performed By: #### 4 1000, 60296, 57473, 98807, 26392, 79267 ####[facility] [place] [address], [facility] GFR/1.73 sq M predicted among blacks MDRD vol rate/area (S/P/Bld) mL/min/{1.73_m2} Normal >60 The [facility] Comment on above: Performed By: #### 4 1000, 02004, 90576, 01149, 01396, 28374 ####[facility] [place] [address], [facility] GFR/1.73 sq M predicted among non-blacks MDRD vol rate/area (S/P/Bld) mL/min/{1.73_m2} Normal >60 The [facility] Comment on above: Performed By: #### 4 1000, 87799, 72076, 53618, 94564, 49428 ####[facility] [place] [address], [place] Glucose mass conc 90 mg/dL Normal 70-100 [facility] Comment on above: Performed By: #### 4 1000, 62403, 10720, 91441, 94305, 76047 ####[facility] [place] [address], [place] Potassium molar conc 4.0 mmol/L Normal 3.5-5.1 [facility] Comment on above: Performed By: #### 4 1000, 84379, 90239, 51430, 42468, 54155 ####[facility] Protein mass conc 6.8 g/dL Normal 6.0-8.3 [facility] Comment on above: Performed By: #### 4 1000, 06041, 87248, 24026, 68594, 68291 ####[facility] Sodium molar conc 138 mmol/L Normal 136-145 [facility] Comment on above: Performed By: #### 4 1000, 42777, 82028, 20705, 64248, 16389 ####[facility] Urea nitrogen mass conc 14 mg/dL Normal 7-25 [facility] Comment on above: Performed By: #### 4 1000, 02306, 87933, 10768, 23662, 89581 ####[facility] DIRECT BILIon 05-27-2017 Bilirubin.direct mass conc 0.1 mg/dL Normal 0.0-0.2 [facility] Comment on above: Performed By: #### 4 1000, 88396, 09219, 30458, 78952, 84496 ####[facility] EVEROLIMUS [id number] 8 EVEROLIMUS 5.6 ng/mL Normal [facility] Comment on above: Result Comment: Ther apeutic Range:Kidney transplant (in combination with Cyclosporine):3-8 ng/mLLiver transplant (in combination with Tacrolimus):3-8 ng/mLToxic value: Greater than 15 ng/mLEverolimus marketed as Zortress is FDA approved forprophylaxis of organ rejection in adult patients receivinga kidney and liver transplant.Everolimus marketed as Afinitor is FDA approved for thetreatment of renal cell carcinoma and for the treatment ofsubependymal giant cell astrocytoma (SEGA) associated withtuberous sclerosis (TS) in patients who are not candidatesfor curative surgical resection. The suggested therapeuticrange for treatment of SEGA is 5-15 ng/mL, which is basedon a predose (trough) specimen.The optimal therapeutic range for a given patient maydiffer from this suggested range based on the indicationfor therapy, treatment phase (initiation or maintenance),use in combination with other drugs, time of specimencollection relative to prior dose, type of transplantedorgan, and/or the therapeutic approach of the transplantcenter.Test developed and characteristics determined by [employer]. See Compliance Statement B: FreeATM/CSPerformed by [employer],[address] [place] [id number] kwn.FreeATM, Leonid Antonio MD - Lab. Director HEMOGLOBIN A1Con 05-27-2017 Glucose mass conc 108 mg/dL Normal 70-126 [facility] Comment on above: Performed By: #### 4 1000, 94207, 52310, 48187, 31069, 03364 ####[facility] [facility].[address] Hemoglobin A1c/Hemoglobin.tota l mass fraction (Bld) 5.4 % Normal 4.0-6.0 [facility] Comment on above: Performed By: #### 4 1000, 20504, 75355, 39371, 40997, 72206 ####[facility] [place] [address], [facility] LIPID PROFILEon 05-27-2017 Cholesterol in HDL mass conc 39 mg/dL Normal 23-92 [facility] Comment on above: Result Comment: Slig ht variation in normal range could be due to gender and/or age.HDL CHOLESTEROL REFERENCE RANGE:20 years and older Cardiovascular Risk> or =60 mg/dL [id number] TO 59 mg/dL Low Risk<40 mg/dL High Risk Performed By: #### 4 1000, 26865, 70460, 83962, 32086, 98716 ####[facility] [place] [address], [facility] Cholesterol in LDL mass conc 52 mg/dL Normal 0-130 [facility] Comment on above: Result Comment: LDL IS A CALCULATIONLDL IS ONLY VALID IF THE TRIG IS LESS THAN 400. Performed By: #### 4 1000, 97164, 35687, 24517, 34152, 38189 ####[facility] [place] [address], [facility] Cholesterol mass conc 117 mg/dL Low 120-200 [facility] Comment on above: Result Comment: CHOL ESTEROL REFERENCE RANGE:20 YEARS AND OLDER CARDIOVASCULAR RISKLess than 200 mg/dl Low Ayal244 to 239 mg/dl Borderline Jfkh882 mg/dl and greater High Risk Performed By: #### 4 1000, 33983, 08143, 02781, 17331, 87642 ####[facility] [place] [address], [facility] Cholesterol.total/C holesterol in HDL mass ratio 3.0 {ratio} Normal .0-4.5 [facility] Comment on above: Performed By: #### 4 1000, 98140, 93072, 00917, 30334, 54141 ####[facility] [place] [address], [facility] NON-HDL CHOLESTEROL 78 mg/dL Normal The [facility] Comment on above: Performed By: #### 4 1000, 90009, 69549, 14858, 22791, 02420 ####[facility] [place] [address], [facility] Triglyceride mass conc 131 mg/dL Normal 40-149 [facility] Comment on above: Result Comment: TRIG LYCERIDE REFERENCE RANGE:20 YEARS AND OLDER CARDIOVASCULAR RISKLESS THAN 150 mg/dl LOW [id number] TO 199 mg/dl BORDERLINE QLVU153 mg/dl AND GREATER HIGH RISK Performed By: #### 4 1000, 79250, 01905, 39540, 34979, 23398 ####[facility] VLDL CHOL 26 mg/dL Normal 0-40 [facility] Comment on above: Performed By: #### 4 1000, 34044, 19153, 19750, 75021, 23546 ####[facility] [facility] [place] [address], [facility] MAGNESIUM BLOODon 05-27-2017 Magnesium mass conc 2.1 mg/dL Normal 1.9-2.7 The [facility] Comment on above: Performed By: #### 4 1000, 32915, 15526, 41382, 87507, 75738 ####[facility] [facility] [place] [address], [facility] PHOSPHORUS BLOODon 8 Phosphate mass conc 3.5 mg/dL Normal 2.5-5.0 The [facility] Comment on above: Performed By: #### 4 1000, 87278, 95942, 55968, 10760, 49227 ####[facility] [facility].[address] TACROLIMUSon 05-27-2017 Tacrolimus mass conc (Bld) 4.4 ng/mL Low 5.0-20.0 The [facility] Comment on above: Result Comment: The [employer] Tacrolimus assay is a delayed one-step immunoassayfor the quantitative determination of tacrolimus in human whole bloodusing the chemiluminescent microparticle immunoassay (CMIA) technologywith flexible assay protocols, referred to as Chemiflex. Performed By: #### 4 1000, 60051, 45881, 16896, 76971, 01784 ####[facility] [facility] [place] [address], [facility] URIC ACID BLOODon 05-27-2017 Urate mass conc 4.6 mg/dL Normal 2.3-6.6 The [facility] Comment on above: Performed By: #### 4 1000, 50517, 11371, 72741, 36514, 02001 ####[facility] [facility].[address] CBC W/DIFFon 04-29-2017 ABS BASOPHILS 0.0 10*3/uL Normal 0.0-0.2 The [facility] Comment on above: Performed By: #### 4 1000, 30530, 24108, 72153, 07347, 66140 ####[facility] [facility].[address] ABS IMM GRANS 0.0 10*3/uL Normal 0.0-0.2 The [facility] Comment on above: Performed By: #### 4 1000, 57064, 38985, 04733, 05288, 91849 ####[facility] ABS NEUTROPHILS 4.6 10*3/uL Normal 1.6-7.6 The [facility] Comment on above: Performed By: #### 4 1000, 04590, 61759, 45722, 96668, 96163 ####[facility] [facility].[address] Basophils Auto #/vol (Bld) 0.3 % Normal 0.0-1.0 The [facility] Comment on above: Performed By: #### 4 1000, 54005, 71001, 87332, 83361, 49042 ####[facility] [facility].[address] Eosinophils Auto #/vol (Bld) 0.1 10*3/uL Normal 0.0-0.5 [facility] Comment on above: Performed By: #### 4 1000, 38057, 89661, 49337, 99098, 21050 ####[facility] Eosinophils/100 WBC Auto (Bld) 1.7 % Normal 0.0-6.0 [facility] Comment on above: Performed By: #### 4 1000, 07373, 69710, 10244, 79898, 14642 ####[facility] Erythrocyte distribution width Auto Ratio (RBC) 13.7 % Normal 11.5-15.0 [facility] Comment on above: Performed By: #### 4 1000, 70764, 31954, 89530, 39536, 77374 ####[facility] Hematocrit Auto Volume Fraction (Bld) 45.0 % Normal 36.0-45.0 [facility] Comment on above: Performed By: #### 4 1000, 83380, 08834, 80486, 22988, 59436 ####[facility]3000 [facility].[address] Hemoglobin mass conc (Bld) 14.9 g/dL Normal 12.0-15.0 [facility] Comment on above: Performed By: #### 4 1000, 33355, 58632, 02538, 19301, 21634 ####[facility] [facility].[address] IMMATURE GRANS 0.3 % Normal 0.0-1.0 The [facility] Comment on above: Performed By: #### 4 1000, 16767, 71581, 87946, 25306, 59584 ####[facility] Lymphocytes Auto #/vol (Bld) 0.9 10*3/uL Low 1.2-4.0 The [facility] Comment on above: Performed By: #### 4 1000, 45802, 34254, 65496, 75058, 81670 ####[facility] Lymphocytes/100 WBC Auto (Bld) 14.2 % Low 20.0-45.0 [facility] Comment on above: Performed By: #### 4 1000, 87289, 68051, 18047, 27743, 72235 ####[facility] MCH Auto Entitic mass (RBC) 29.4 pg Normal 27.0-33.0 [facility] Comment on above: Performed By: #### 4 1000, 37013, 29374, 15963, 20137, 92778 ####[facility] MCHC Auto mass conc (RBC) 33.1 g/dL Normal 32.0-35.0 [facility] Comment on above: Performed By: #### 4 1000, 51132, 33947, 23757, 88652, 65318 ####[facility] MCV Auto Entitic volume (RBC) 88.8 fL Normal 82.0-98.0 The [facility] Comment on above: Performed By: #### 4 1000, 08595, 60623, 89649, 60404, 44917 ####[facility] Monocytes Auto #/vol (Bld) 0.8 10*3/uL Normal 0.1-1.0 [facility] Comment on above: Performed By: #### 4 1000, 24183, 62368, 29191, 55135, 37677 ####[facility] MONOS 12.2 % High 5.0-12.0 The [facility] Comment on above: Performed By: #### 4 1000, 17004, 14308, 61159, 65258, 10956 ####[facility] Neutrophils/100 WBC Auto (Bld) 71.3 % Normal 40.0-72.0 [facility] Comment on above: Performed By: #### 4 1000, 54650, 17817, 87026, 17925, 78962 ####[facility] Nucleated RBC/100 WBC Ratio (Bld) 0 % Normal 0-0 [facility] Comment on above: Performed By: #### 4 1000, 46809, 82094, 22145, 35340, 05746 ####[facility] PLAT CNT 215 10*3/uL Normal 150-400 The [facility] Comment on above: Performed By: #### 4 1000, 09921, 43061, 72717, 47199, 58833 ####[facility] RBC Auto #/vol (Bld) 5.07 10*6/uL High 3.80-5.00 The [facility] Comment on above: Performed By: #### 4 1000, 33307, 98352, 71482, 18576, 18407 ####[facility] WBC Auto #/vol (Bld) 6.5 10*3/uL Normal 4.0-10.6 The [facility] Comment on above: Performed By: #### 4 1000, 48166, 81409, 67339, 41704, 96235 ####[facility] COMP METABOLIC PANELon 04-29 Albumin mass conc 4.4 g/dL Normal 3.5-5.7 The [facility] Comment on above: Performed By: #### 4 1000, 61731, 26465, 97798, 84154, 01471 ####[facility] [place] [address], [facility] ALKALINE PHOSPH 114 IU/L High 34-104 The [facility] Comment on above: Performed By: #### 4 1000, 09447, 28799, 67770, 79099, 76148 ####[facility] [place] [address], [place] ALT enzyme act/vol 15 U/L Normal 7-52 The [facility] Comment on above: Performed By: #### 4 1000, 14893, 80165, 21642, 94688, 59967 ####[facility] [place] [address], [facility] AST enzyme act/vol 19 U/L Normal 13-39 The [facility] Comment on above: Performed By: #### 4 1000, 86187, 09082, 00178, 40072, 53852 ####[facility] [place] [address], [facility] Bilirubin mass conc 0.7 mg/dL Normal 0.3-1.0 The [facility] Comment on above: Performed By: #### 4 1000, 59448, 85657, 49201, 38656, 94166 ####[facility] [place] [address], [facility] Calcium mass conc 9.6 mg/dL Normal 8.6-10.3 The [facility] Comment on above: Performed By: #### 4 1000, 65704, 67356, 16360, 27985, 20697 ####[facility] [place] [address], [place] Chloride molar conc 103 mmol/L Normal 98-107 The [facility] Comment on above: Performed By: #### 4 1000, 61924, 84133, 64462, 23296, 65651 ####[facility] [place] [address], [facility] CO2 molar conc 29 mmol/L Normal 21-31 The [facility] Comment on above: Performed By: #### 4 1000, 27310, 91936, 65324, 61983, 84394 ####[facility] [place] [address], [facility] Creatinine mass conc 0.79 mg/dL Normal 0.60-1.20 The [facility] Comment on above: Performed By: #### 4 1000, 98049, 65256, 28184, 65972, 88391 ####[facility] [place] [address], [facility] GFR/1.73 sq M predicted among blacks MDRD vol rate/area (S/P/Bld) mL/min/{1.73_m2} Normal >60 The [facility] Comment on above: Performed By: #### 4 1000, 70450, 97587, 04182, 36133, 25400 ####[facility] [place] [address], [facility] GFR/1.73 sq M predicted among non-blacks MDRD vol rate/area (S/P/Bld) mL/min/{1.73_m2} Normal >60 The [facility] Comment on above: Performed By: #### 4 1000, 74327, 76727, 24306, 94494, 75570 ####[facility] [place] [address], [facility] Glucose mass conc 90 mg/dL Normal 70-100 [facility] Comment on above: Performed By: #### 4 1000, 54315, 77343, 53026, 11805, 64294 ####[facility] [place] [address], [place] Potassium molar conc 3.8 mmol/L Normal 3.5-5.1 [facility] Comment on above: Performed By: #### 4 1000, 39123, 83899, 28883, 48003, 33640 ####[facility] [place] [address], [facility] Protein mass conc 7.2 g/dL Normal 6.0-8.3 The [facility] Comment on above: Performed By: #### 4 1000, 72717, 14410, 66210, 00932, 85725 ####[facility] [place] [address], [facility] Sodium molar conc 140 mmol/L Normal 136-145 The [facility] Comment on above: Performed By: #### 4 1000, 54553, 38988, 19583, 02485, 70108 ####[facility] Urea nitrogen mass conc 15 mg/dL Normal 7-25 The [facility] Comment on above: Performed By: #### 4 1000, 76736, 91721, 49758, 76881, 45318 ####[facility] DIRECT BILIon 04-29-2017 Bilirubin.direct mass conc 0.1 mg/dL Normal 0.0-0.2 The [facility] Comment on above: Order Comment: Liver Battery conflicts with Comprehensive Metabolic Panel. Liver Battery canceled and Direct Bilirubin added. Performed By: #### 4 1000, 87020, 22947, 58551, 07305, 59616 ####[facility] [place] [address], [facility] EVEROLIMUS [id number] EVEROLIMUS 5.4 ng/mL Normal The [facility] Comment on above: Result Comment: Ther apeutic Range:Kidney transplant (in combination with Cyclosporine):3-8 ng/mLLiver transplant (in combination with Tacrolimus):3-8 ng/mLToxic value: Greater than 15 ng/mLEverolimus marketed as Zortress is FDA approved forprophylaxis of organ rejection in adult patients receivinga kidney and liver transplant.Everolimus marketed as Afinitor is FDA approved for thetreatment of renal cell carcinoma and for the treatment ofsubependymal giant cell astrocytoma (SEGA) associated withtuberous sclerosis (TS) in patients who are not candidatesfor curative surgical resection. The suggested therapeuticrange for treatment of SEGA is 5-15 ng/mL, which is basedon a predose (trough) specimen.The optimal therapeutic range for a given patient maydiffer from this suggested range based on the indicationfor therapy, treatment phase (initiation or maintenance),use in combination with other drugs, time of specimencollection relative to prior dose, type of transplantedorgan, and/or the therapeutic approach of the transplantcenter.Test developed and characteristics determined by [employer]. See Compliance Statement B: Free[employer]M/CSPerformed by [employer],[address] [place] [id number] sbn.[employer], Leonid Antonio MD - Lab. Director LIPID PROFILEon 04-29-2017 Cholesterol in HDL mass conc 49 mg/dL Normal 23-92 The [facility] Comment on above: Result Comment: Slig ht variation in normal range could be due to gender and/or age.HDL CHOLESTEROL REFERENCE RANGE:20 years and older Cardiovascular Risk> or =60 mg/dL [id number] TO 59 mg/dL Low Risk<40 mg/dL High Risk Performed By: #### 4 1000, 76826, 06909, 91674, 90019, 02837 ####[facility] [facility].[address] Cholesterol in LDL mass conc 52 mg/dL Normal 0-130 [facility] Comment on above: Result Comment: LDL IS A CALCULATIONLDL IS ONLY VALID IF THE TRIG IS LESS THAN 400. Performed By: #### 4 1000, 61469, 29970, 92341, 84007, 08737 ####[facility] [place] [address], [facility] Cholesterol mass conc 122 mg/dL Normal 120-200 [facility] Comment on above: Result Comment: CHOL ESTEROL REFERENCE RANGE:20 YEARS AND OLDER CARDIOVASCULAR RISKLess than 200 mg/dl Low Ojfv595 to 239 mg/dl Borderline Eyhp250 mg/dl and greater High Risk Performed By: #### 4 1000, 06874, 85013, 87308, 02068, 42416 ####[facility] [facility].[address] Cholesterol.total/C holesterol in HDL mass ratio 2.5 {ratio} Normal .0-4.5 [facility] Comment on above: Performed By: #### 4 1000, 81725, 43937, 09488, 15409, 86518 ####[facility]3000 [facility].[address] NON-HDL CHOLESTEROL 73 mg/dL Normal [facility] Comment on above: Performed By: #### 4 1000, 57841, 27862, 84879, 08793, 39105 ####[facility] [facility].[address] Triglyceride mass conc 106 mg/dL Normal 40-149 [facility] Comment on above: Result Comment: TRIG LYCERIDE REFERENCE RANGE:20 YEARS AND OLDER CARDIOVASCULAR RISKLESS THAN 150 mg/dl LOW [id number] TO 199 mg/dl BORDERLINE EDUR100 mg/dl AND GREATER HIGH RISK Performed By: #### 4 1000, 30062, 47001, 25625, 14308, 34414 ####[facility] [facility].[address] VLDL CHOL 21 mg/dL Normal 0-40 [facility] Comment on above: Performed By: #### 4 1000, 93268, 74915, 15108, 68922, 93423 ####[facility] [facility].[address] MAGNESIUM BLOODon 04-29-2017 Magnesium mass conc 2.1 mg/dL Normal 1.9-2.7 [facility] Comment on above: Performed By: #### 4 1000, 55384, 67416, 74107, 10248, 72300 ####[facility] [facility].[address] PHOSPHORUS BLOODon 8 Phosphate mass conc 3.3 mg/dL Normal 2.5-5.0 [facility] Comment on above: Performed By: #### 4 1000, 94291, 78830, 82545, 74976, 83328 ####[facility] TACROLIMUSon 04-29-2017 Tacrolimus mass conc (Bld) 4.6 ng/mL Low 5.0-20.0 [facility] Comment on above: Result Comment: The [employer] Tacrolimus assay is a delayed one-step immunoassayfor the quantitative determination of tacrolimus in human whole bloodusing the chemiluminescent microparticle immunoassay (CMIA) technologywith flexible assay protocols, referred to as Chemiflex. Performed By: #### 4 1000, 67407, 30230, 55671, 15619, 64989 ####[facility] URIC ACID BLOODon 04-29-2017 Urate mass conc 4.6 mg/dL Normal 2.3-6.6 [facility] Comment on above: Performed By: #### 4 1000, 17984, 44506, 30693, 08451, 27153 ####[place] [address] [address] CBC W/DIFFon 03-27-2017 Basophils Auto #/vol (Bld) 0.2 % Normal 0.0-2.0 [facility] Comment on above: Performed By: #### 4 1000, 00027, 02246, 06590, 38308, 47298 ####[facility] Eosinophils/100 WBC Auto (Bld) 1.8 % Normal 0.0-5.0 [facility] Comment on above: Performed By: #### 4 1000, 15081, 41077, 31158, 42133, 93613 ####[facility] Erythrocyte distribution width Auto Ratio (RBC) 13.6 % Normal 11.5-16.9 [facility] Comment on above: Performed By: #### 4 1000, 75449, 93502, 89719, 40057, 08556 ####[facility] Hematocrit Auto Volume Fraction (Bld) 47.6 % Normal 36.0-48.0 [facility] Comment on above: Performed By: #### 4 1000, 21279, 20192, 58690, 75272, 39711 ####[facility] Hemoglobin mass conc (Bld) 15.8 g/dL High 12.0-15.0 [facility] Comment on above: Performed By: #### 4 1000, 69052, 55788, 42406, 58543, 59051 ####[facility] Lymphocytes/100 WBC Auto (Bld) 14.5 % Low 20.0-40.0 [facility] Comment on above: Performed By: #### 4 1000, 32363, 24373, 78178, 67888, 90905 ####[facility] MCH Auto Entitic mass (RBC) 29.0 pg Normal 24.0-32.0 [facility] Comment on above: Performed By: #### 4 1000, 74701, 80978, 50456, 19830, 36947 ####[facility] MCHC Auto mass conc (RBC) 33.3 g/dL Normal 32.0-36.0 [facility] Comment on above: Performed By: #### 4 1000, 32071, 48603, 35709, 65752, 27686 ####[facility] MCV Auto Entitic volume (RBC) 87.4 fL Normal 80.0-100.0 [facility] Comment on above: Performed By: #### 4 1000, 40701, 39200, 07409, 93735, 26469 ####[facility] METHOD Normal RBC Morphology Normal [facility] Comment on above: Performed By: #### 4 1000, 71225, 03826, 23569, 13905, 66058 ####[facility] MONOS 9.6 % High 2-8 [facility] Comment on above: Performed By: #### 4 1000, 52493, 30958, 74558, 30926, 46168 ####[facility]3000 [facility].[address] Neutrophils/100 WBC Auto (Bld) 73.9 % High 50-70 [facility] Comment on above: Performed By: #### 4 1000, 99167, 75053, 11785, 92818, 17822 ####[facility] [facility].[address] PLAT CNT 228 Thou/mm3 Normal 100-400 [facility] Comment on above: Performed By: #### 4 1000, 87703, 63229, 22895, 65898, 42711 ####[facility] RBC Auto #/vol (Bld) 5.45 mill/mm3 Normal 3.50-5.50 [facility] Comment on above: Performed By: #### 4 1000, 45479, 70637, 52591, 83578, 73330 ####[facility] [place] [address], [facility] WBC Auto #/vol (Bld) 6.5 Thou/mm3 Normal 4.0-10.0 [facility] Comment on above: Performed By: #### 4 1000, 98408, 37291, 91655, 62657, 02748 ####[facility] COMP METABOLIC PANELon 03-27 Albumin mass conc 4.7 g/dL Normal 3.5-5.7 [facility] Comment on above: Performed By: #### 4 1000, 28003, 13468, 22472, 93041, 87761 ####[facility] ALKALINE PHOSPH 99 IU/L Normal 34-104 [facility] Comment on above: Performed By: #### 4 1000, 52064, 47300, 50805, 10593, 05634 ####[facility] ALT enzyme act/vol 19 U/L Normal 7-52 [facility] Comment on above: Performed By: #### 4 1000, 22208, 08386, 25685, 66284, 30914 ####[facility] [place] [address], [facility] AST enzyme act/vol 21 U/L Normal 13-39 [facility] Comment on above: Performed By: #### 4 1000, 85171, 53387, 58875, 85782, 34651 ####[facility] [place] [address], [facility] Bilirubin mass conc 0.6 mg/dL Normal 0.3-1.0 [facility] Comment on above: Performed By: #### 4 1000, 55173, 94947, 04132, 24548, 63016 ####[facility] [place] [address], [place] Calcium mass conc 10.2 mg/dL Normal 8.6-10.3 [facility] Comment on above: Performed By: #### 4 1000, 37275, 52474, 23600, 49921, 40930 ####[facility] [place] [address], [place] Chloride molar conc 104 mmol/L Normal 98-107 [facility] Comment on above: Performed By: #### 4 1000, 77362, 54996, 44507, 93838, 75292 ####[facility] [place] [address], [place] CO2 molar conc 28 mmol/L Normal 21-31 The [facility] Comment on above: Performed By: #### 4 1000, 82361, 94412, 12976, 97350, 83327 ####[facility] [place] [address], [place] Creatinine mass conc 0.78 mg/dL Normal 0.60-1.20 [facility] Comment on above: Performed By: #### 4 1000, 91199, 95636, 93073, 81963, 74553 ####[facility] [place] [address], [place] GFR/1.73 sq M predicted among blacks MDRD vol rate/area (S/P/Bld) mL/min/{1.73_m2} Normal >60 The [facility] Comment on above: Performed By: #### 4 1000, 72410, 63833, 16024, 48481, 79527 ####[facility] [place] [address], [place] GFR/1.73 sq M predicted among non-blacks MDRD vol rate/area (S/P/Bld) mL/min/{1.73_m2} Normal >60 The [facility] Comment on above: Performed By: #### 4 1000, 70243, 36991, 86101, 55058, 82823 ####[facility] [place] [address], [facility] Glucose mass conc 87 mg/dL Normal 70-100 [facility] Comment on above: Performed By: #### 4 1000, 97601, 75407, 37132, 69419, 57941 ####[facility] [place] [address], [facility] Potassium molar conc 4.1 mmol/L Normal 3.5-5.1 [facility] Comment on above: Performed By: #### 4 1000, 29269, 38364, 87034, 65813, 67230 ####[facility] [place] [address], [facility] Protein mass conc 7.8 g/dL Normal 6.0-8.3 [facility] Comment on above: Performed By: #### 4 1000, 60067, 61050, 63994, 72093, 96326 ####[facility] [place] [address], [facility] Sodium molar conc 139 mmol/L Normal 136-145 [facility] Comment on above: Performed By: #### 4 1000, 30401, 42489, 12522, 07085, 48312 ####[facility] [place] [address], [facility] Urea nitrogen mass conc 19 mg/dL Normal 7-25 [facility] Comment on above: Performed By: #### 4 1000, 16101, 75280, 68527, 32600, 75543 ####[facility] [place] [address], [facility] DIRECT BILIon 03-27-2017 Bilirubin.direct mass conc 0.1 mg/dL Normal 0.0-0.2 [facility] Comment on above: Performed By: #### 4 1000, 55778, 75138, 82608, 62899, 32003 ####[facility] EVEROLIMUS [id number] 7 EVEROLIMUS 5.3 ng/mL Normal [facility] Comment on above: Result Comment: Ther apeutic Range:Kidney transplant (in combination with Cyclosporine):3-8 ng/mLLiver transplant (in combination with Tacrolimus):3-8 ng/mLToxic value: Greater than 15 ng/mLEverolimus marketed as Zortress is FDA approved forprophylaxis of organ rejection in adult patients receivinga kidney and liver transplant.Everolimus marketed as Afinitor is FDA approved for thetreatment of renal cell carcinoma and for the treatment ofsubependymal giant cell astrocytoma (SEGA) associated withtuberous sclerosis (TS) in patients who are not candidatesfor curative surgical resection. The suggested therapeuticrange for treatment of SEGA is 5-15 ng/mL, which is basedon a predose (trough) specimen.The optimal therapeutic range for a given patient maydiffer from this suggested range based on the indicationfor therapy, treatment phase (initiation or maintenance),use in combination with other drugs, time of specimencollection relative to prior dose, type of transplantedorgan, and/or the therapeutic approach of the transplantcenter.Test developed and characteristics determined by [facility]. See Compliance Statement B: FreeATM/CSPerformed by [employer],[address] [place] [id number] wgf.[employer], Leonid Antonio MD - Lab. Director LIPID PROFILEon 03-27-2017 Cholesterol in HDL mass conc 50 mg/dL Normal 23-92 [facility] Comment on above: Result Comment: Slig ht variation in normal range could be due to gender and/or age.HDL CHOLESTEROL REFERENCE RANGE:20 years and older Cardiovascular Risk> or =60 mg/dL Uddmozcwh57 TO 59 mg/dL Low Risk<40 mg/dL High Risk Performed By: #### 4 1000, 68155, 31113, 26688, 46794, 56245 ####[facility] [place] [address], [facility] Cholesterol in LDL mass conc 66 mg/dL Normal 0-130 [facility] Comment on above: Result Comment: LDL IS A CALCULATIONLDL IS ONLY VALID IF THE TRIG IS LESS THAN 400. Performed By: #### 4 1000, 27167, 18617, 37216, 00229, 71156 ####[facility] [place] [address], [facility] Cholesterol mass conc 147 mg/dL Normal 120-200 [facility] Comment on above: Result Comment: CHOL ESTEROL REFERENCE RANGE:20 YEARS AND OLDER CARDIOVASCULAR RISKLess than 200 mg/dl Low Csga546 to 239 mg/dl Borderline Qxvx131 mg/dl and greater High Risk Performed By: #### 4 1000, 26211, 35010, 05916, 19604, 45365 ####[facility] [place] [address], [facility] Cholesterol.total/C holesterol in HDL mass ratio 2.9 {ratio} Normal .0-4.5 [facility] Comment on above: Performed By: #### 4 1000, 78964, 16881, 10448, 73922, 49859 ####[facility] [place] [address], [facility] NON-HDL CHOLESTEROL 97 mg/dL Normal [facility] Comment on above: Performed By: #### 4 1000, 08485, 37607, 13309, 85287, 94297 ####[facility] [place] [address], [place] Triglyceride mass conc 157 mg/dL High 40-149 [facility] Comment on above: Result Comment: TRIG LYCERIDE REFERENCE RANGE:20 YEARS AND OLDER CARDIOVASCULAR RISKLESS THAN 150 mg/dl LOW [id number] TO 199 mg/dl BORDERLINE DTNU905 mg/dl AND GREATER HIGH RISK Performed By: #### 4 1000, 90503, 98962, 84391, 84503, 04978 ####[facility] VLDL CHOL 31 mg/dL Normal 0-40 [facility] Comment on above: Performed By: #### 4 1000, 24121, 44979, 52957, 75117, 41567 ####[facility]3000 [facility].[address] MAGNESIUM BLOODon 03-27-2017 Magnesium mass conc 1.9 mg/dL Normal 1.9-2.7 [facility] Comment on above: Performed By: #### 4 1000, 15953, 38198, 46651, 65798, 16919 ####[facility]3000 [facility].[address] PHOSPHORUS BLOODon 7 Phosphate mass conc 3.4 mg/dL Normal 2.5-5.0 [facility] Comment on above: Performed By: #### 4 1000, 93092, 77682, 15403, 83162, 39184 ####[facility]3000 [facility].[address] TACROLIMUSon 03-27-2017 Tacrolimus mass conc (Bld) 3.7 ng/mL Low 5.0-20.0 [facility] Comment on above: Result Comment: The [employer] Tacrolimus assay is a delayed one-step immunoassayfor the quantitative determination of tacrolimus in human whole bloodusing the chemiluminescent microparticle immunoassay (CMIA) technologywith flexible assay protocols, referred to as Chemiflex. Performed By: #### 4 1000, 87868, 70151, 31509, 84616, 39822 ####[facility]3000 [facility].[address] URIC ACID BLOODon 03-27-2017 Urate mass conc 4.1 mg/dL Normal 2.3-6.6 The [facility] Comment on above: Performed By: #### 4 1000, 55180, 79676, 45039, 76309, 96078 ####[facility] [facility].[address] BK VIRUS QUANTITATION PCR BL OODon 02-26-2017 BKV QUANT PCR Not detected Normal The [facility] Comment on above: Result Comment: Meth od: BK virus was measured by quantitative polymerase chain reactionusing a TaqMan probe targeting the polyomavirus BK LIQUID COMPOUNDER-1 gene.The lower limit of quantitation of the assay is 500 copies of BK genomeper milliliter of plasma or urine, and any detectable BK DNA below thatlevel is reported as: Detected, <500 copies/ml. Serial BK virusmeasurement can be used to monitor disease activity. (Reference:Kelsie vaughanl. J CLIN MICRO 2004; 42:0347-8680).This test was developed and its performance characteristics determinedby the [facility]. It has not been approvedby the [place] Food and Drug Administration. However, such approval is notrequired for clinical implementation, and test results have been shownto be clinically useful. This laboratory is CAP accredited and CLIAcertified to perform high complexity testing. Performed By: #### 4 1000, 78432, 96217, 69930, 42382, 39393 ####[place] [address] [facility].[address] LOG 10 COPIES Not detected Normal The [facility] Comment on above: Performed By: #### 4 1000, 07491, 49872, 61755, 46540, 05081 ####[address] CBC W/DIFFon 02-26-2017 Basophils Auto #/vol (Bld) 0.3 % Normal 0.0-2.0 [facility] Comment on above: Performed By: #### 5 0103 ####[address] Eosinophils/100 WBC Auto (Bld) 2.2 % Normal 0.0-5.0 [facility] Comment on above: Performed By: #### 5 0103 ####[address] [address], [place] Erythrocyte distribution width Auto Ratio (RBC) 13.8 % Normal 11.5-16.9 [facility] Comment on above: Performed By: #### 5 3 ####[facility] [facility].[address] Hematocrit Auto Volume Fraction (Bld) 44.9 % Normal 36.0-48.0 [facility] Comment on above: Performed By: #### 3 ####[facility] [facility].[address] Hemoglobin mass conc (Bld) 15.0 g/dL Normal 12.0-15.0 [facility] Comment on above: Performed By: #### 3 ####[address] Lymphocytes/100 WBC Auto (Bld) 18.9 % Low 20.0-40.0 [facility] Comment on above: Performed By: #### 3 ####[facility] [facility].[address] MCH Auto Entitic mass (RBC) 28.9 pg Normal 24.0-32.0 [facility] Comment on above: Performed By: #### 3 ####[facility] [facility].[address] MCHC Auto mass conc (RBC) 33.4 g/dL Normal 32.0-36.0 [facility] Comment on above: Performed By: #### 3 ####[facility] MCV Auto Entitic volume (RBC) 86.6 fL Normal 80.0-100.0 [facility] Comment on above: Performed By: #### 3 ####[facility] [facility].[address] METHOD Normal RBC Morphology Normal [facility] Comment on above: Performed By: #### 5 0103 ####[facility] [facility].[address] MONOS 11.7 % High 2-8 [facility] Comment on above: Performed By: #### 5 0103 ####[facility]3000 [facility].[address] Neutrophils/100 WBC Auto (Bld) 66.9 % Normal 50-70 [facility] Comment on above: Performed By: #### 5 0103 ####[facility] [facility].[address] PLAT CNT 230 Thou/mm3 Normal 100-400 The [facility] Comment on above: Performed By: #### 5 0103 ####[facility] [facility].[address] RBC Auto #/vol (Bld) 5.18 mill/mm3 Normal 3.50-5.50 [facility] Comment on above: Performed By: #### 5 0103 ####[facility] [facility].[address] WBC Auto #/vol (Bld) 5.8 Thou/mm3 Normal 4.0-10.0 [facility] Comment on above: Performed By: #### 5 0103 ####[facility]3000 [facility].[address] COMP METABOLIC PANELon 02-26 Albumin mass conc 4.7 g/dL Normal 3.5-5.7 [facility] Comment on above: Performed By: #### 4 1000, 65382, 05189, 36603, 32148, 96494 ####[facility] [facility].[address] ALKALINE PHOSPH 115 IU/L High 34-104 The [facility] Comment on above: Performed By: #### 4 1000, 38925, 09031, 13440, 82524, 87469 ####[facility] [place] [address], [facility] ALT enzyme act/vol 18 U/L Normal 7-52 [facility] Comment on above: Performed By: #### 4 1000, 05863, 58279, 95192, 57477, 19660 ####[facility] [place] [address], [place] AST enzyme act/vol 22 U/L Normal 13-39 [facility] Comment on above: Performed By: #### 4 1000, 16535, 69846, 04609, 44304, 26994 ####[facility] [place] [address], [place] Bilirubin mass conc 0.6 mg/dL Normal 0.3-1.0 [facility] Comment on above: Performed By: #### 4 1000, 28006, 04823, 14317, 33794, 16678 ####[facility] [place] [address], [facility] Calcium mass conc 9.8 mg/dL Normal 8.6-10.3 [facility] Comment on above: Performed By: #### 4 1000, 36284, 72862, 46424, 31494, 41738 ####[facility] [place] [address], [place] Chloride molar conc 103 mmol/L Normal 98-107 [facility] Comment on above: Performed By: #### 4 1000, 63560, 70852, 60369, 19970, 27435 ####[facility] [place] [address], [place] CO2 molar conc 29 mmol/L Normal 21-31 The [facility] Comment on above: Performed By: #### 4 1000, 86009, 69291, 04969, 35618, 32744 ####[facility] [place] [address], [facility] Creatinine mass conc 0.78 mg/dL Normal 0.60-1.20 [facility] Comment on above: Performed By: #### 4 1000, 95501, 50814, 52544, 62575, 80474 ####[facility] [place] [address], [facility] GFR/1.73 sq M predicted among blacks MDRD vol rate/area (S/P/Bld) mL/min/{1.73_m2} Normal >60 The [facility] Comment on above: Performed By: #### 4 1000, 85459, 71377, 50746, 98757, 94202 ####[facility] [place] [address], [facility] GFR/1.73 sq M predicted among non-blacks MDRD vol rate/area (S/P/Bld) mL/min/{1.73_m2} Normal >60 The [facility] Comment on above: Performed By: #### 4 1000, 18452, 63800, 85872, 73576, 27141 ####[facility] [place] [address], [place] Glucose mass conc 94 mg/dL Normal 70-100 [facility] Comment on above: Performed By: #### 4 1000, 69328, 92961, 35209, 41997, 77166 ####[facility] [place] [address], [facility] Potassium molar conc 3.8 mmol/L Normal 3.5-5.1 [facility] Comment on above: Performed By: #### 4 1000, 17380, 29449, 81856, 04526, 32373 ####[facility] Protein mass conc 7.4 g/dL Normal 6.0-8.3 [facility] Comment on above: Performed By: #### 4 1000, 93345, 20851, 35820, 77979, 21171 ####[facility]3000 [facility].[address] Sodium molar conc 136 mmol/L Normal 136-145 [facility] Comment on above: Performed By: #### 4 1000, 70276, 02949, 29087, 16107, 98035 ####[facility]3000 [facility].[address] Urea nitrogen mass conc 19 mg/dL Normal 7-25 [facility] Comment on above: Performed By: #### 4 1000, 40659, 81657, 44727, 44253, 40211 ####[facility]3000 [facility].[address] DIRECT BILIon 02-26-2017 Bilirubin.direct mass conc 0.1 mg/dL Normal 0.0-0.2 [facility] Comment on above: Performed By: #### 4 1000, 75983, 58449, 61955, 25412, 22612 ####[facility] [facility].[address] EVEROLIMUS [id number] 7 EVEROLIMUS 5.9 ng/mL Normal [facility] Comment on above: Result Comment: Ther apeutic Range:Kidney transplant (in combination with Cyclosporine):3-8 ng/mLLiver transplant (in combination with Tacrolimus):3-8 ng/mLToxic value: Greater than 15 ng/mLEverolimus marketed as Zortress is FDA approved forprophylaxis of organ rejection in adult patients receivinga kidney and liver transplant.Everolimus marketed as Afinitor is FDA approved for thetreatment of renal cell carcinoma and for the treatment ofsubependymal giant cell astrocytoma (SEGA) associated withtuberous sclerosis (TS) in patients who are not candidatesfor curative surgical resection. The suggested therapeuticrange for treatment of SEGA is 5-15 ng/mL, which is basedon a predose (trough) specimen.The optimal therapeutic range for a given patient maydiffer from this suggested range based on the indicationfor therapy, treatment phase (initiation or maintenance),use in combination with other drugs, time of specimencollection relative to prior dose, type of transplantedorgan, and/or the therapeutic approach of the transplantcenter.Test developed and characteristics determined by [facility]. See Compliance Statement B: FreeATM/CSPerformed by [facility],[address] [place] [address] pcf.FreeATM, Leonid Antonio MD - Lab. Director HEMOGLOBIN A1Con 02-26-2017 Glucose mass conc 108 mg/dL Normal 70-126 [facility] Comment on above: Performed By: #### 4 6447, 01754 ####[facility] Hemoglobin A1c/Hemoglobin.tota l mass fraction (Bld) 5.4 % Normal 4.0-6.0 [facility] Comment on above: Performed By: #### 4 0203, 81007 ####[facility] [facility].[address] LIPID PROFILEon 02-26-2017 Cholesterol in HDL mass conc 54 mg/dL Normal 23-92 [facility] Comment on above: Result Comment: Slig ht variation in normal range could be due to gender and/or age.HDL CHOLESTEROL REFERENCE RANGE:20 years and older Cardiovascular Risk> or =60 mg/dL [id number] TO 59 mg/dL Low Risk<40 mg/dL High Risk Performed By: #### 4 1000, 74379, 98057, 75694, 84085, 82060 ####[facility] Cholesterol in LDL mass conc 70 mg/dL Normal 0-130 [facility] Comment on above: Result Comment: LDL IS A CALCULATIONLDL IS ONLY VALID IF THE TRIG IS LESS THAN 400. Performed By: #### 4 1000, 70700, 63064, 81784, 17022, 01168 ####[facility] [facility] [place] [address], [facility] Cholesterol mass conc 144 mg/dL Normal 120-200 [facility] Comment on above: Result Comment: CHOL ESTEROL REFERENCE RANGE:20 YEARS AND OLDER CARDIOVASCULAR RISKLess than 200 mg/dl Low Otkl330 to 239 mg/dl Borderline Rvem532 mg/dl and greater High Risk Performed By: #### 4 1000, 87494, 43417, 91278, 91146, 74421 ####[facility] [place] [address], [facility] Cholesterol.total/C holesterol in HDL mass ratio 2.7 {ratio} Normal .0-4.5 [facility] Comment on above: Performed By: #### 4 1000, 77618, 81264, 52835, 53951, 48855 ####[facility] [facility] [address], [facility] NON-HDL CHOLESTEROL 90 mg/dL Normal [facility] Comment on above: Performed By: #### 4 1000, 56827, 11691, 49839, 32221, 02448 ####[facility] [place] [address], [facility] Triglyceride mass conc 101 mg/dL Normal 40-149 [facility] Comment on above: Result Comment: TRIG LYCERIDE REFERENCE RANGE:20 YEARS AND OLDER CARDIOVASCULAR RISKLESS THAN 150 mg/dl LOW UFLL362 TO 199 mg/dl BORDERLINE SFAU425 mg/dl AND GREATER HIGH RISK Performed By: #### 4 1000, 68229, 22064, 79199, 30771, 31934 ####[facility] [place] [address], [facility] VLDL CHOL 20 mg/dL Normal 0-40 [facility] Comment on above: Performed By: #### 4 1000, 67132, 17562, 59198, 87667, 07083 ####[facility] [facility] [address], [facility] MAGNESIUM BLOODon 02-26-2017 Magnesium mass conc 1.9 mg/dL Normal 1.9-2.7 [facility] Comment on above: Performed By: #### 4 1000, 40927, 94369, 85205, 57601, 67938 ####[facility] PHOSPHORUS BLOODon 7 Phosphate mass conc 4.1 mg/dL Normal 2.5-5.0 [facility] Comment on above: Performed By: #### 4 1000, 69427, 25426, 20394, 74042, 11357 ####[facility] TACROLIMUSon 02-26-2017 Tacrolimus mass conc (Bld) 4.2 ng/mL Low 5.0-20.0 [facility] Comment on above: Result Comment: The [employer] Tacrolimus assay is a delayed one-step immunoassayfor the quantitative determination of tacrolimus in human whole bloodusing the chemiluminescent microparticle immunoassay (CMIA) technologywith flexible assay protocols, referred to as Chemiflex. Performed By: #### 4 6447, 12010 ####[facility] URIC ACID BLOODon 02-26-2017 Urate mass conc 4.3 mg/dL Normal 2.3-6.6 [facility] Comment on above: Performed By: #### 4 1000, 44181, 61108, 76694, 36756, 71246 ####[place] [address] [address] Vital Signs Date Time Vital Sign Value Performing Clinician Facility 03-27-2023 11:30-0500 Body height 152.4 cm Cathy Bella Other [facility] 03-27-2023 11:30-0500 Body mass index (BMI) [Ratio] 25.39 kg/m2 Cathy Shayne Other [facility] 03-27-2023 11:30-0500 Body temperature 97.5 [degF] Cathy Bella Other [facility] 03-27-2023 11:30-0500 Body weight 58.97 kg Cathy Shayne Other [facility] 03-27-2023 11:30-0500 Respiratory rate 18 /min Cathy Bella Other [facility] 03-27-2023 11:30-0500 SaO2% (BldA) [Mass fraction] 96 % Cathy Bella Other [facility] 09-21-2022 09:00-0400 Body height 152.4 cm Martha Smithmond Other [facility] Other 09-21-2022 09:00-0400 Body mass index (BMI) [Ratio] 22.46 kg/m2 Martha Paola Other [facility] 09-21-2022 09:00-0400 Body temperature 97.6 [degF] Martha Paola Other [facility] 09-21-2022 09:00-0400 Body weight 52.16 kg Martha Paola Other [facility] Other 09-21-2022 09:00-0400 Diastolic blood pressure 70 mm[Hg] Martha Paola Other [facility] Other 09-21-2022 09:00-0400 Respiratory rate 18 /min Martha Guevara Other [facility] Other 09-21-2022 09:00-0400 SaO2% (BldA) [Mass fraction] 96 % Martha Guevara Other [facility] Other 09-21-2022 09:00-0400 Systolic blood pressure 107 mm[Hg] Martha Guevara Other [facility] Other 01-12-2022 13:55-0400 Body height 152.4 cm Cathy Bella Other [facility] Other 01-12-2022 13:55-0400 Body mass index (BMI) [Ratio] 19.53 kg/m2 Cathy Bella Other [facility] Other 01-12-2022 13:55-0400 Body temperature 96.9 [degF] Cathy Bella Other [facility] Other 01-12-2022 13:55-0400 Body weight 45.36 kg Cathy Bella Other [facility] Other 01-12-2022 13:55-0400 Respiratory rate 18 /min Cathy Bella Other [facility] Other 01-12-2022 13:55-0400 SaO2% (BldA) [Mass fraction] 97 % Cathy Bella Other [facility] Other 12-28-2021 10:20-0400 Body height 152.4 cm Martha Smithmond Other [facility] Other 12-28-2021 10:20-0400 Body mass index (BMI) [Ratio] 21.48 kg/m2 Martha Guevara Other [facility] Other 12-28-2021 10:20-0400 Body temperature 98 [degF] Martha Smithmond Other [facility] Other 12-28-2021 10:20-0400 Body weight 49.9 kg Martha Guevara Other [facility] Other 12-28-2021 10:20-0400 Respiratory rate 18 /min Martha Guevara Other [facility] Other 12-28-2021 10:20-0400 SaO2% (BldA) [Mass fraction] 97 % Martha Guevara Other [facility] Other 12-25-2021 10:05-0400 Body height 152.4 cm Cathy Bella Other [facility] Other 12-25-2021 10:05-0400 Body mass index (BMI) [Ratio] 21.48 kg/m2 Cathy Bella Other [facility] 12-25-2021 10:05-0400 Body temperature 96 [degF] Cathy Bella Other [facility] Other 12-25-2021 10:05-0400 Body weight 49.9 kg Cathy Bella Other [facility] Other 12-25-2021 10:05-0400 Respiratory rate 18 /min Cathy Bella Other [facility] Other 12-25-2021 10:05-0400 SaO2% (BldA) [Mass fraction] 97 % Cathy Bella Other [facility] Other 10-27-2021 12:35-0400 Body height 152.4 cm Cathy Bella Other [facility] Other 10-27-2021 12:35-0400 Body mass index (BMI) [Ratio] 22.85 kg/m2 Cathy Bella Other [facility] Other 10-27-2021 12:35-0400 Body weight 53.07 kg Cathy Bella Other [facility] Other 10-27-2021 12:35-0400 Diastolic blood pressure 87 mm[Hg] Cathy Bella Other [facility] Other 10-27-2021 12:35-0400 SaO2% (BldA) [Mass fraction] 98 % Cathy Bella Other [facility] Other 10-27-2021 12:35-0400 Systolic blood pressure 130 mm[Hg] Cathy Bella Other [facility] Other 08-14-2021 10:40-0400 Body height 152.4 cm Martha Guevara Other [facility] Other 08-14-2021 10:40-0400 Body mass index (BMI) [Ratio] 22.46 kg/m2 Martha Guevara Other [facility] Other 08-14-2021 10:40-0400 Body temperature 96.7 [degF] Martha Guevara Other [facility] Other 08-14-2021 10:40-0400 Body weight 52.16 kg Martha Paola Other [facility] Other 08-14-2021 10:40-0400 Diastolic blood pressure 68 mm[Hg] Martha Paola Other [facility] Other 08-14-2021 10:40-0400 Respiratory rate 20 /min Martha Paola Other [facility] Other 08-14-2021 10:40-0400 SaO2% (BldA) [Mass fraction] 98 % Martha Paola Other [facility] Other 08-14-2021 10:40-0400 Systolic blood pressure 144 mm[Hg] Martha Paola Other [facility] Other Encounters Encounter Date Encounter Type Care Provider Facility Start: 04-02-2023 End: 04-02-2023 ambulatory RAMON CARROLL Not Available Start: 03-27-2023 End: 03-27-2023 ambulatory Cathy Bella Other [facility] Start: 03-27-2023 Office outpatient visit 25 minutes Cathy Bella [facility] Start: 03-17-2023 End: 03-17-2023 ambulatory VIRGIL HAYNES [facility] Start: 03-06-2023 End: 03-06-2023 ambulatory JOHN PADILLA Not Available Start: 02-12-2023 End: 02-12-2023 ambulatory JOHN PADILLA Not Available Start: 09-21-2022 End: 09-21-2022 ambulatory Martha Guevara Other [facility] Start: 09-21-2022 Office outpatient visit 15 minutes Martha Paola [facility] Start: 09-17-2022 End: 09-17-2022 ambulatory VIRGIL [facility] Start: 08-12-2022 End: 08-13-[address] DOE BRIDGES Facility:[facility] Start: 07-23-2022 End: 07-24-[address] RAMON CARROLL Facility:[facility] Start: 07-08-2022 End: 07-09-[address] RAMON CARROLL Facility:[facility] Start: 06-10-2022 End: 06-11-[address] DOE BRIDGES Facility:[facility] Start: 05-10-2022 End: 05-11-[address] DOE BRIDGES Facility:[facility] Start: 04-08-2022 End: 04-09-[address] DOE BRIDGES Facility:[facility] Start: 03-19-2022 End: 03-19-2022 ambulatory VIRGIL [facility] Start: 03-11-2022 End: 03-12-[address] DOCTOR CERNA Facility:[facility] Start: 02-08-2022 End: 02-09-[address] DOE BRIDGES Facility:[facility] Start: 01-28-2022 End: 01-29-[address] DOCTOR CERNA Facility:[facility] Start: 01-12-2022 End: 01-12-2022 ambulatory Cathy Bella Other [facility] Start: 01-12-2022 Office outpatient visit 15 minutes Cathy Bella [facility] Start: 01-07-2022 End: 01-07-2022 ambulatory ISATU GUAMAN . Facility:[facility] Start: 01-03-2022 End: 01-04-[address] VIRGIL SWIFT Facility:[facility] Start: 12-28-2021 End: 12-28-2021 ambulatory Martha Guevara Other [facility] Other Start: 12-28-2021 Office outpatient visit 15 minutes Martha Guevara [facility] Start: 12-25-2021 End: 12-25-2021 ambulatory Cathy Bella Other [facility] Other Start: 12-25-2021 Office outpatient visit 25 minutes Cathy Bella [facility] Start: 12-05-2021 End: 12-06-[address] DOCTOR MISC Facility:[facility] Start: 11-07-2021 End: 11-08-[address] DOCTOR MISC Facility:[facility] Start: 10-27-2021 End: 10-27-2021 ambulatory Cathy Bella Other [facility] Start: 10-27-2021 Office outpatient visit 15 minutes Cathy Bella [facility] Start: 10-15-2021 End: 10-16-[address] DOCTOR MISC Facility:[facility] Start: 10-08-2021 End: 10-09-[address] DOCTOR MISC Facility:[facility] Start: 09-10-2021 End: 09-11-[address] DOCTOR MISC Facility:[facility] Start: 08-14-2021 End: 08-14-2021 ambulatory Martha Guevara Other [facility] Start: 08-14-2021 Office outpatient visit 15 minutes Martha Guevara [facility] Start: 12-31-2017 End: 01-01-2018 Patient encounter VIRGIL HAYNES Facility:[facility] Start: 12-25-2017 End: 12-26-2017 Patient encounter ROSALINDA ROSENBAUM Facility:[facility] Start: 10-30-2017 End: 10-31-2017 Patient encounter ROSALINDA ROSENBAUM Facility:[facility] Start: 10-23-2017 End: 10-24-2017 Patient encounter ROSALINDA ROSENBAUM Facility:[facility] Start: 09-25-2017 End: 09-26-2017 Patient encounter ROSALINDA ROSENBAUM Facility:[facility] Start: 08-26-2017 End: 08-27-2017 Patient encounter ROSALINDA ROSENBAUM Facility:[facility] Start: 07-23-2017 End: 07-24-2017 Patient encounter ROSALINDA ROSENBAUM Facility:[facility] Start: 06-20-2017 End: 06-21-2017 Patient encounter ROSALINDA ROSENBAUM Facility:[facility] Start: 05-27-2017 End: 05-28-2017 Patient encounter ROSALINDA ROSENBAUM Facility:[facility] Start: 04-29-2017 End: 04-30-2017 Patient encounter ROSALINDA ROSENBAUM Facility:[facility] Start: 03-27-2017 End: 03-28-2017 Patient encounter ROSALINDA ROSENBAUM Facility:[facility] Start: 02-26-2017 End: 02-27-2017 Patient encounter DOE BRIDGES Facility:[facility] Procedures Date Procedure Procedure Detail Performing Clinician Start: 08-14-2021 Piperacillin/tazobactam Martha Guevara Other Immunizations Immunization Date Immunization Notes Care Provider Heri fatima 03-16-2009 influenza virus vaccine, split virus (incl. purified surface antigen) Martha Guevara Other [facility] Other Payers Date Payer Category Payer Medicare [id number] 1958 [facility] [id number] 1959 Self-pay 1959 Unknown [id number] 1956 Unknown [id number] 2.16.8 40.1.998330.3.579.2.647 1956 Unknown [id number] 2.16.8 40.1.084899.3.579.2.647 1956 Unknown [id number] 2.16.8 40.1.564754.3.579.2.647 1956 Unknown [id number] 2.16.8 40.1.999015.3.579.2.647 1956 Unknown [id number] 2.16.8 40.1.212511.3.579.2.647 1956 Unknown [id number] 2.16.8 40.1.550013.3.579.2.647 1956 Unknown [id number] 2.16.8 40.1.355034.3.579.2.647 1956 Unknown [id number] 2.16.8 40.1.739775.3.579.2.647 1956 Unknown [id number] 2.16.8 40.1.534322.3.579.2.647 1956 Unknown [id number] 2.16.8 40.1.461645.3.579.2.647 1956 Unknown [id number] 2.16.8 40.1.165895.3.579.2.647 1956 Unknown [id number] 2.16.8 40.1.159694.3.579.2.647 1956 Unknown [id number] 2.16.84 0.1.739214.3.579.2.593 1956 Unknown [id number] 2.16.84 0.1.501427.3.579.2.593 1956 Unknown [id number] 2.16.84 0.1.197577.3.579.2.593 1956 Unknown [id number] 2.16.84 0.1.495732.3.579.2.593 1956 Unknown [id number] 2.16.84 0.1.440974.3.579.2.593 1956 Unknown [id number] 2.16.84 0.1.029440.3.579.2.593 1956 Unknown [id number] 2.16.84 0.1.500574.3.579.2.593 1956 Unknown [id number] 2.16.84 0.1.344187.3.579.2.593 1956 Unknown [id number] 2.16.84 0.1.743849.3.579.2.593 1956 Unknown [id number] 2.16.84 0.1.130753.3.579.2.593 1956 Unknown [id number] 2.16.84 0.1.900252.3.579.2.593 1956 Unknown [id number] 2.16.84 0.1.863620.3.579.2.593 1956 Unknown [id number] 2.16.84 0.1.695628.3.579.2.593 1956 Unknown [id number] 2.16.84 0.1.776843.3.579.2.593 1956 Unknown [id number] 2.16.84 0.1.975173.3.579.2.593 1956 Unknown [id number] 2.16.840 .1.117251.3.579.2.1259 1956 Unknown [id number] 2.16.840 .1.543961.3.579.2.1259 1956 Unknown [id number] 2.16.840 .1.290186.3.579.2.1259 Unknown [id number] 2.16.84 0.1.518422.3.579.2.593 Social History Date Type Detail Facility Unknown if ever smoked [facility] Other Sex Assigned At Sex Assigned At Bir [facility] Other Clinical Notes 11-10-2007 to 03-27-2023 Note Date & Type Note Facility 03-27-2023 Evaluation note Encounter Date Diagnosis Assessment Notes Feb, Contact with and (suspected) exposure to covid-19 (ICD-10 - Z20.822) Feb, Viral URI (ICD-10 - J06.9) Advised patient that COVID/Influenza A/B/RSV test and rapid Strep test was negative today. Advised patient that will treat as viral URI. Supportive care as directed, increase fluids and rest, Tylenol as directed, rx of [place], cool mist humidifier, throat lozenges. Discussed infection control practices such as good hand washing and mask wearing. Patient to follow up with PCP if symptoms persist or worsen despite treatment. Immediate eval for SOB, difficulty breathing, chest pain, fevers that do not break with antipyretic or any other concerning symptoms as reviewed on patient education handout. Patient verbalizes understanding and is agreeable to treatment plan. Patient left in stable condition. Feb, Sore throat (ICD-10 - J02.9) [facility] Other 12-18-2023 Note03/17/23 Chief Complaint Patient presents with Kidney Follow-up Patient would like to know if Virgil would prescribe depression medication. PCP: Ramon Carroll MD Txp Referring: Preferred Pharmacy: [facility] - [place], [place] - [address] [facility] [address] [id number] [place], [place] - [address] [place] [address] & [address] [address] [facility] [place], [place] - [address] [place] [address] [address] [facility] [address] Subjective Visit Vitals BP 142/80 (BP Location: Right arm, Patient Position: Sitting) Pulse 63 Temp 36.3 ???C (97.4 ???F) (Oral) Ht 1.524 m (5') Wt 60.6 kg (133 lb 9.6 oz) BMI 26.09 kg/m??? Smoking Status Never BSA 1.6 m??? No Known Allergies Medication Documentation Review Audit Reviewed by Tosha Lagos MA (Refractory Worker) on 03/17/23 at 0956 Medication Order Taking? Sig Documenting Provider Last Dose Status amLODIPine (Norvasc) 5 mg tablet [id number] Yes TAKE 1 TABLET BY MOUTH EVERY DAY Virgil Haynes NP Taking Active amoxicillin (Amoxil) 500 mg capsule [id number] No 1 capsule every 8 (eight) hours. Historical Provider, Not Taking Active atorvastatin (Lipitor) 20 mg tablet [id number] Yes TAKE 1 TABLET BY MOUTH EVERY DAY AT BEDTIME Virgil Haynes NP Taking Active baclofen (Lioresal) 10 mg tablet [id number] Yes Historical Provider, Taking Active cyanocobalamin (Vitamin B-12) 500 mcg tablet [id number] No in the morning. Historical Provider, Not Taking Active magnesium oxide (Mag-Ox) 400 mg (241.3 mg magnesium) tablet [id number] Yes Take 400 mg by mouth in the morning. Historical Provider, Taking Active mycophenolate (Myfortic) 180 mg EC tablet [id number] Yes TAKE 4 TABLETS BY MOUTH IN THE MORNING AND AT BEDTIME Doe Bridges MD Taking Active omega-3 fatty acids-fish oil (Fish OiL Extra Strength) 435-880 mg capsule [id number] No 1 capsule 1 (one) time each day at the same time. Historical Provider, Not Taking Active PARoxetine (Paxil) 10 mg tablet [id number] Yes Take 10 mg by mouth in the morning. Historical Provider, Taking Active potassium gluconate 595 mg (99 mg) tablet [id number] No every 12 (twelve) hours. Historical Provider, Not Taking Active spironolactone (Aldactone) 25 mg tablet [id number] Yes TAKE 1 TABLET BY MOUTH EVERY DAY Virgil Haynes NP Taking Active tacrolimus (Prograf) 0.5 mg capsule [id number] Yes TAKE ONE CAPSULE BY MOUTH EVERY MORNING AND 1 CAPSULE EVERY NIGHT AT BEDTIME Anthony Kunz MD Taking Active Immunization History Administered Date(s) Administered SiteBrains Sars-Cov-2 Vaccination 06/07/2020 There is no problem list on file for this patient. No family history on file. Social History Tobacco Use Smoking status: Never Smokeless tobacco: Never Vaping Use Vaping Use: Never used Substance Use Topics Alcohol use: Never Drug use: Never Past Medical History: Diagnosis Date Skin cancer Past Surgical History: Procedure Laterality Date SKIN SURGERY skin cancer removal, 3x OB History No obstetric history on file. Travel Screening No screening recorded since 03/16/23 0000 Travel History Travel since 02/15/23 No documented travel since 02/15/23 HPI Tanika Grimm is a 67 y.o. 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 03/17/23 Pt presents visit with . Pt states labs done Last week in [facility] and [place] calling for results. Pt seeing Derm in [place] for lesion: forearm and other lesions. Hx: melanoma PCP: local Dr Carroll. Pt continues to care for son in her home with Lung Ca and son now on dialysis 3 x week. Pt hx: renal Tx 2013, APKD. Pt denies CP or SOB. No N/V/D. No edema. Reviewed patient immunosuppression meds and patient verbalized understanding. IS Tac 1mg Bid Myfortic 3 tabs BID Labs partial done 01/23/23 : B/S 87 ; Creat 0.8 ; K+ 3.8 Mag ; Phos ; WBC Hgb. Pt AGAIN instructed to use our [facility] Transplant standing order for her monthly labs. Pt reports B/P stable at home Discussed hydration PLan of Care: Continue meds and MONTHLY Labs with [facility] standing Order. Follow up 6 months or sooner if needed. See Derm See PCP as scheduled: Dr Carroll. Chart Reviewed Today: 09/17/22 Pt helping son with transportation for his Chemo treatments for Lung Ca. Pt has a skin lesion on left forearm. Hx treatment skin ca with Derm. Pt going to see Derm soon for this unhealing lesion. Pt retired 09/2021. Pt presents for office visit with . Pt hx: renal Tx 2013, APKD. Pt denies CP or SOB. No N/V/D. No edema. Reviewed patient immunosuppression meds and patient verbalized understanding. Labs done 08/12/22 : B/S 102 ; Creat 0.9 ; (more content not included)...[facility]10-18-2023 Note Reviewed Ext Tac 3.6 over the phone with Dr. Vivas, per phone order no changes at this time.[facility]07-14-2023 NoteReviewed labs from 10/09/22, no changes.[facility]06-20-2023 Note 09/17/22 Chief Complaint Patient presents with Kidney Follow-up Patient has no new concerns PCP: Ramon Carroll MD Txp Referring: Preferred Pharmacy: [facility] - [place], [place] - [address] [facility] [address] [id number] [place], [place] - [address] [facility] [address] [facility] [address] Subjective Visit Vitals BP 123/81 (BP Location: Right arm, Patient Position: Sitting, BP Cuff Size: Adult) Pulse 77 Temp 36.7 ???C (98.1 ???F) Ht 1.524 m (5') Wt 58.1 kg (128 lb) BMI 25.00 kg/m??? Smoking Status Never BSA 1.57 m??? No Known Allergies Medication Documentation Review Audit Reviewed by LUANN HERNÁNDEZ (Refractory Worker) on 09/17/22 at 1019 Medication Order Taking? Sig Documenting Provider Last Dose Status amLODIPine (Norvasc) 5 mg tablet [id number] Take 5 mg by mouth in the morning. Yasmin Mancia MD Active amoxicillin (Amoxil) 500 mg capsule [id number] 1 capsule every 8 (eight) hours. Yasmin Mancia MD Active atorvastatin (Lipitor) 20 mg tablet [id number] Take 20 mg by mouth in the morning. Yasmin Mancia MD Active cyanocobalamin (Vitamin B-12) 500 mcg tablet [id number] in the morning. Yasmin Mancia MD Active magnesium oxide (Mag-Ox) 400 mg (241.3 mg magnesium) tablet [id number] Take 400 mg by mouth in the morning. Yasmin Mancia MD Active mycophenolate (Myfortic) 180 mg EC tablet [id number] Take 4 tablets (720 mg) by mouth in the morning and at bedtime. Patient should take as directed BID Doe Bridges MD Active omega-3 fatty acids-fish oil (Fish OiL Extra Strength) 435-880 mg capsule [id number] 1 capsule 1 (one) time each day at the same time. Yasmin Mancia MD Active potassium gluconate 595 mg (99 mg) tablet [id number] every 12 (twelve) hours. Yasmin Mancia MD Active spironolactone (Aldactone) 25 mg tablet [id number] Take 25 mg by mouth in the morning. Yasmin Mancia MD Active tacrolimus (Prograf) 0.5 mg capsule [id number] Take 1 capsule (0.5 mg) by mouth in the morning and at bedtime. Take 1mg tacrolimus PO Qam and 0.5mg PO Qpm or as directed TDD 2mg, z94.0 Anthony Kunz MD Active tacrolimus (Prograf) 1 mg capsule [id number] Take 1 capsule (1 mg) by mouth in the morning and at bedtime. Take 1mg tacrolimus PO Qam and 0.5mg PO Qpm or as directed Doe Bridges MD Active Immunization History Administered Date(s) Administered Caroline Sars-Cov-2 Vaccination 06/07/2020 There is no problem list on file for this patient. No family history on file. Social History Tobacco Use Smoking status: Never Smokeless tobacco: Never Vaping Use Vaping Use: Never used Substance Use Topics Alcohol use: Never Drug use: Never History reviewed. No pertinent past medical history. History reviewed. No pertinent surgical history. OB History No obstetric history on file. Travel Screening Question Response In the last 10 days, have you been in contact with someone who was confirmed or suspected to have Coronavirus/COVID-19? No / Unsure Have you had a COVID-19 viral test in the last 10 days? No Do you have any of the following new or worsening symptoms? None of these Have you traveled internationally or domestically in the last month? No Travel History Travel since 08/17/22 No documented travel since 08/17/22 HPI Tanika Grimm is a 66 y.o. 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 09/17/22 Pt helping son with transportation for his Chemo treatments for Lung Ca. Pt has a skin lesion on left forearm. Hx treatment skin ca with Derm. Pt going to see Derm soon for this unhealing lesion. Pt retired 09/2021. Pt presents for office visit with . Pt hx: renal Tx 2013, APKD. Pt denies CP or SOB. No N/V/D. No edema. Reviewed patient immunosuppression meds and patient verbalized understanding. Labs done 08/12/22 : B/S 102 ; Creat 0.9 ; K+ 4.5 Mag 1.7 ; Phos 3.9 ; WBC ; Hgb Pt reports B/P stable at home Discussed hydration PLan of Care: Continue meds and MONTHLY Labs. Follow up 6 months or sooner if needed. See Derm SACHA. See PCP as scheduled: Dr Carroll. Historical: The patient presents in the Renal Transplant clinic today for a post transplant visit and 24-month everolimus study visit. Patient has known PKD and HTN and is status post -donor renal transplant on 10/24/13. The patient has been tolerating medications well. She denies any acute complaints. She has today continuing stable left lower back pain near her tailbone that she attributes to standing for 8 hours at work each day. Her serum creatinine on discharge was 0.8 mg/dL, and it has been stable around 1.0 mg/dL. It is 0.83 mg/dL today. Patient has had intermittent mild bilateral (more content not included)...[facility]12-20-2022 Note03/19/22 Chief Complaint Patient presents with Kidney Follow-up Pateint has no current concerns PCP: Ramon Carroll MD Txp Referring: Preferred Pharmacy: [facility] - [place], [place] - [facility] [address] [facility] [address] [id number] [place], [place] - [address] [place] [address] & [address] [id number] Subjective There were no vitals taken for this visit. Not on File Medication Documentation Review Audit Prior to Admission medications have not yet been reviewed Immunization History Administered Date(s) Administered Caroline Sars-Cov-2 Vaccination 06/07/2020 There is no problem list on file for this patient. No family history on file. No past medical history on file. No past surgical history on file. OB History No obstetric history on file. Travel Screening Question Response In the last 10 days, have you been in contact with someone who was confirmed or suspected to have Coronavirus/COVID-19? No / Unsure Have you had a COVID-19 viral test in the last 10 days? No Do you have any of the following new or worsening symptoms? None of these Have you traveled internationally or domestically in the last month? No Travel History Travel since 02/17/22 No documented travel since 02/17/22 LARRY Grimm is a 66 y.o. 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 The patient presents in the Renal Transplant clinic today for a post transplant visit and 24-month everolimus study visit. Patient has known PKD and HTN and is status post -donor renal transplant on 01/21/13. The patient has been tolerating medications well. She denies any acute complaints. She has today continuing stable left lower back pain near her tailbone that she attributes to standing for 8 hours at work each day. Her serum creatinine on discharge was 0.8 mg/dL, and it has been stable around 1.0 mg/dL. It is 0.83 mg/dL today. Patient has had intermittent mild bilateral LE edema since she has been back to work andon her feet for her 8-hour shifts; none today. Blood pressure is generally well-controlled; it is elevated in the clinic today at 120/102. At this point, the patient would like to continue her current immunosuppression regimen even though she is done with the study. 10/22: Pt is doing well, no SOB, no LE edema, reported LE cramps at night, Ca, Mg and K within normal Creat 0.8 HGB 15.7 On Everolimus 0.75 BID and Tacrolimus 0.5 BID BP records at home within normal and here 133/89 ROS:-ve/ 08/16/2016 A 60 year old lady who had renal transplant on 01/21/2013. Original disease was ADPKD. She is here for follow up. No acute issues. Appetite is good. No edema, No N/V. BP = 143/82. SBP said to be in the 130s at home. Transplant medications: Zotress 07.5mg BID, Tacrolimus 0.5MG BID. Labs today: Glucose 93, BUN 16, Cr 0.79, Na 141, K 4.1, Cl 105, bicarb 28, Ca 9.9, Mg 2.0, P 3.2, uric acid 4.9, WBC 6.1, Hb 15.0, Hct 44.5, PLT 202 . 9/: F/U visit, doiing well, No complains, noD/V/swallowing difficulty. Tx in 2012COt for ADPKD, NO swelling of legs. Transplant medications: Zotress 07.5mg BID, Tacrolimus 0.5MG BID. Labs today: Glucose 93, BUN 16, Cr 0.79, Na 141, K 4.1, Cl 105, bicarb 28, Ca 9.9, Mg 2.0, P 3.2, uric acid 4.9, WBC 6.1, Hb 15.0, Hct 44.5, PLT 202 . 06/20/2017 h/o renal transplant in 2013 . APKD . no new issues labs done in may, show a normal renal function with cr 0.8 , normal electrolytes and normal cbc she takes everolimus 0.75 mg bid , , tacrolimus 0.5 mg bid 12/31/17 Pt presents for office visit. Hx renal Tx 2013, APKD. No CP or SOB. No N/V/D. No rash. Reviewed patient immunosuppression meds and patient verbalized understanding. Labs done 12/25/17: B/S 94; Creat 0.7; K+ 3.9 Mag 1.8; Phos 3.4; WBC 6.9; Hgb 14.9. PLan of Care: Continue meds and Labs. Follow up 6 months or sooner if needed. 07/15/18 Pt presents for office visit with Significant other. Pt Hx renal Tx 2013, APKD. Pt denies CP or SOB. No N/V/D. No edema. Reviewed patient immunosuppression meds and patient verbalized understanding. Labs done 07/10/18 : B/S 107; Creat 0.8; K+ 4.1 Mag 1.7; Phos 4.3; WBC 7.1 ; Hgb 13.8. PLan of Care: Continue meds and Labs. Follow up 6 months or sooner if needed. See PCP as scheduled: Dr Carroll. 02/03/19 Pt hx renal Tx 2013, APKD. No transplant issues per patient. Pt denies CP or SOB. No N/V/D. No edema. Reviewed patient immunosuppression meds and patient verbalized understanding. Labs done 01/25/19 : B/S 94; Creat 0.8; K+ 4.1 Mag 1.7; Phos 3.5; WBC 6.9 ; Hgb 15.1 . PLan of Care: Continue meds and Labs. Follow up 6 months or sooner if needed. See PCP as schedul (more content not included)...[facility]10-15-2022 Evaluation note* Encounter Date Diagnosis Assessment Notes Treatment Notes Treatment Clinical Notes Dec, Sore throat (ICD-10 - J02.9) Advised patient that rapid Strep test is negative today in office. No other testing performed Dec, Mouth sores (ICD-10 - K13.79) Discussed diagnosis with patient. Advised to use magic mouthwash as directed. Encouraged Tylenol as needed, salt water gargles. Advised to keep area moisturized with aquafor. Follow other treatment plan recommendations. Patient verbalizes understanding and is agreeable with treatment plan Dec, Hoarseness (ICD-10 - R49.0) Discussed diagnosis with patient. Will send in rx of Medrol dose pack to use as directed to cover for residual lingering cough, hoarseness. Reviewed side effects of medications, advised to finish entire course. Patient verbalizes understanding and is agreeable with treatment plan [facility] Other 09-30-2022 Evaluation note* Encounter Date Diagnosis Assessment Notes Treatment Notes Treatment Clinical Notes Nov, Sore throat (ICD-10 - J02.9) Nov, Bronchitis (ICD-10 - J40) Acute bronchitis material was printed Drink plenty fluids, get plenty of rest. Take Tylenol or Motrin as needed for aches pains or fevers. Continue to use your Tessalon Perles as needed. Take the prednisone as prescribed until gone. Use the albuterol inhaler as prescribed for cough or shortness of breath. Follow-up with your family physician if no improvement in 2 to 3 days. [facility] Other 09-27-2022 Evaluation note* Encounter Date Diagnosis Assessment Notes Treatment Notes Treatment Clinical Notes Nov, Contact with and (suspected) exposure to other viral communicable diseases (ICD-10 - Z20.828) Nov, Viral URI with cough (ICD-10 - J06.9) Advised patient that COVID PCR test was negative today. Advised patient that will treat as viral URI. Supportive care as directed, increase fluids and rest, Tylenol/Motrin as directed, OTC cough/cold remedies as directed on packaging such as Cordicidin HBP, cool mist humidifier, throat lozenges. Will send in rx of Tessalon Perles to use as directed. Discussed infection control practices such as good hand washing and mask wearing. Patient to follow up with PCP if symptoms persist or worsen despite treatment. Immediate eval for SOB, difficulty, chest pain, fevers that do not break with antipyretic or any other concerning symptoms as reviewed on patient education handout. Patient verbalizes understanding and is agreeable to treatment plan. Patient left in stable condition [facility] Other 07-30-2022 Evaluation note* Encounter Date Diagnosis Assessment Notes Treatment Notes Treatment Clinical Notes Sep, Rash and nonspecific skin eruption (ICD-10 - R21) Physical exam findings consistent in appearance with contact dermatitis. Explained to patient that there are no signs of bacterial infection on exam today. Encouraged patient to begin taking rx of Zyrtec once daily, to help stop histamine reaction and calm itching. Also instructed patient that she may use OTC Calamine lotion or hydrocortisone cream topically for itching. Use rx of Triamcinolone as directed, wash hands after application. Advised patient to avoid bath and showers with hot water. Putting a cool, wet towel on the area may help relieve itching. Keep away from strong soaps, detergents, and chemicals. Begin using hypoallergenic soaps. If symptoms persist despite treatment, pt should follow up with her PCP within 1 week. Patient should follow up with PCP or return to sooner if symptoms worsen despite treatment, or if she begins experiencing increased redness, warmth, swelling, or pain of affected area. Patient verbalizes understanding and agrees with treatment plan [facility] Other 05-17-2022 Evaluation note* Encounter Date Diagnosis Assessment Notes Treatment Notes Treatment Clinical Notes July, Dysuria (ICD-10 - R30.0) July, Urinary tract infection, site not specified (ICD-10 - N39.0) Drink plenty fluids, get plenty of rest. Take the Cipro and Pyridium as prescribed until gone. Tylenol as needed for aches or pains. Follow-up with your family physician if no improvement in 2 to 3 days July, Hematuria, unspecified (ICD-10 - R31.9) [facility] Other 08-12-2008 History general Narrative - Reported* Type Description Date Medical History PKD found in 1982 when she had a son Medical History hypertension Medical History kidney transplant Surgical History resection of superior cervical mass 11/10/07 Surgical History Teeth extraction in preparation for renal transplant Surgical History portacath placement Surgical History kidney transplant 2014 Hospitalization History see above [facility] Other Evaluation noteNort [employer] Other [facility] - [facility] Other Summary Purpose Family History No Family History Records FoundNo Family History Records FoundNo Family History Records FoundNo Family History Records FoundNo Family History Records Found Advance Directives No Advanced Directives Records FoundNo Advanced Directives Records FoundNo Advanced Directives Records FoundNo Advanced Directives Records FoundNo Advanced Directives Records Found Additional Source Comments INFORMATION SOURCE (unrecogn ized section and content) DATE CREATED AUTHOR 01/30/2018 [facility] DATE CREATED AUTHOR AUTHOR'S ORGANIZ ATION 08/17/2021 [facility] DATE CREATED AUTHOR AUTHOR'S ORGANIZ ATION 08/13/2022 [facility] DATE CREATED AUTHOR AUTHOR'S ORGANIZ ATION 03/17/2023 [facility] DATE CREATED AUTHOR AUTHOR'S ORGANIZ ATION 04/03/2023 [facility] EPIC REASON FOR VISIT (unrecogniz ed section and content) DYSURIADYSURIADYSURIAPOSS RA SH ON BACK, ITCHINGDODGE JOURNEY, SORE THROAT, COUGHBLACK DODGE JOURNT SORE THROATIN CAR, MOUTH SORES, CALL [phone] THROAT, COUGHING, DRAINAGE FOR RECORDS PERTAINING TO PATIENTS WHO ARE OR HAVE BEEN ENROLLED IN A CHEMICAL DEPENDENCY/SUBSTANCEABUSE PROGRAM, SOME INFORMATION MAY BE OMITTED. This clinical summary was aggregated from multiple sources. Caution should be exercised in using it in the provision of clinical care. This summary normalizes information from multiple sources, and as a consequence, information in this document may materially change the coding, format and clinical context of patient data. In addition, data may be omitted in some cases. CLINICAL DECISIONS SHOULD BE BASED ON THE PRIMARY CLINICAL RECORDS. [employer] provides no warranty or guarantee of the accuracy or completeness of information in this document.
[2023-04-21 07:21] LABS: Basophils Percent Auto 0.2 % (0.2-2.0); Eosinophils Absolute Auto 0.2 10^3/uL (0.0-0.7); Eosinophils Percent Auto 3.4 % (0.9-7.0); Hematocrit 44.9 % (36.0-48.0); Hemoglobin 14.4 g/dL (12.0-16.0); Immature Granulocytes Abs Auto 0.01 10^3/uL (0.00-0.03); Immature Granulocytes Pct Auto 0.2 % (0.0-0.5); Lymphocytes Absolute Auto 1.1 10^3/uL (1.2-3.8); Lymphocytes Percent Auto 21.5 % (20.5-60.0); Mean Corpuscular HGB Conc 32.1 g/dL (29.9-35.2); Mean Corpuscular Hemoglobin 30.6 pg (26.7-34.0); Mean Corpuscular Volume 95.3 fL (81.0-99.0); Mean Platelet Volume 11.8 fL (9.5-13.5); Monocytes Absolute Auto 0.6 10^3/uL (0.3-0.8); Monocytes Percent Auto 10.4 % (1.7-12.0); Neutrophils Absolute Auto 3.4 10^3/uL (1.4-6.5); Neutrophils Percent Auto 64.3 % (43.0-75.0); Platelet Count 203 10^3/uL (150-450); Red Blood Count 4.71 10^6/uL (4.20-5.40); White Blood Count 5.3 10^3/uL (4.0-11.0)
[2023-04-21 07:35] LABS: Alanine Aminotransferase 19 U/L (14-59); Albumin Globulin Ratio 1.1; Albumin Level 3.6 g/dL (3.4-5.0); Alkaline Phosphatase 131 U/L (46-116); Anion Gap 11.3; Aspartate Amino Transferase 13 U/L (15-37); BUN Creatinine Ratio 19.3; Bilirubin Direct 0.1 mg/dL (0.0-0.2); Bilirubin Total 0.6 mg/dL (0.2-1.0); Calcium 9.3 mg/dL (8.5-10.1); Carbon Dioxide 28.7 mmol/L (21.0-32.0); Chloride 105 mmol/L (98-107); Estimated GFR (African America >60 (>=60); Estimated GFR (Non-African Ame >60 (>=60); Globulin 3.4 g/dL; Glucose 94 mg/dL (74-106); Magnesium 1.8 mg/dL (1.8-2.4); Phosphorus 3.1 mg/dL (2.6-4.7); Sodium 141 mmol/L (136-145); Uric Acid 4.6 mg/dL (2.6-6.0)
[2023-04-21 07:36] LABS: Chol HDL Ratio 2.5; Cholesterol 138 mg/dL (<=200); HDL Cholesterol 55 mg/dL (40-60); LDL Cholesterol Calculated 62.4 mg/dL; Triglycerides 103 mg/dL (<=150); VLDL CHOLESTEROL 20.6 mg/dL
[2023-04-21 07:48] LABS: Estimated Average Glucose 120 mg/dL; Glycohemoglobin A1C 5.8 % (4.5-6.2)
[2023-04-24 22:07] LABS: Tacrolimus (FK506), Blood 4.1 ng/mL (2.0-20.0)
== END 2023-04-21 06:39 | disposition home or self-care (01) ==
LOC: LAB 06:40
PROVIDERS: PCP Internal Medicine
DX: Z48.298 Encounter for aftercare following other organ transplant (principal); Z79.899 Other long term (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 therapy; Z94.0 Kidney transplant status
CPT/HCPCS: 36415; 80053; 80061; 80197; 82248; 83036; 83735; 84100; 84550; 85025; 87799

== ENCOUNTER 2023-05-19 06:40 | Outpatient (OUT) | payer MEDICARE, SELFPAY ==
--- OUTSIDE RECORDS SUMMARY | 2023-05-19 06:45 | XMS_ITS | CCD ---
Author Name Unknown Address [id number] [place] [address] Organization [facility] Care Team Providers Care Job Analyst Name Role Phone JICARILLA APACHE NATION DOE Unavailable Unavailable JICARILLA APACHE NATION, DINKAR Unavailable Unavailable CARROLL, RAMON Unavailable Unavailable [...] ROSALINDA Unavailable Unavailable CARROLL, RAMON Unavailable Unavailable VIRGIL HAYNES Unavailable Unavailable VIRGIL HAYNES Unavailable Unavailable VIRGIL HAYNES Unavailable Unavailable CARROLL, RAMON Unavailable Unavailable Martha Guevara Unavailable Cathy Bella Unavailable JENIFFER, DR VIRGIL Palma Consulting Unavailable NADERERadha, DR VIRGIL Palma Attending Unavailable CARROLL, DR DARBY Primary [...] Attending Unavailable MISC, DR OBRIEN Admitting Unavailable JICARILLA APACHE NATION, DR CONNORS Consulting Unavailable CARROLL, DR DARBY Primary Care Unavailable MISC, DR OBRIEN Attending Unavailable MISC, DR OBRIEN Admitting Unavailable MISC, DR OBRIEN Attending Unavailable MISC, DR OBRIEN Admitting Unavailable MISC, DR OBRIEN Consulting Unavailable CARROLL, DR DARBY Primary Care Unavailable JICARILLA APACHE NATION, DR CONNORS Consulting Unavailable JICARILLA APACHE NATION, DR CONNORS Attending Unavailable CARROLL, DR DARBY Primary Care Unavailable JICARILLA APACHE NATION, DR CONNORS Admitting Unavailable JICARILLA APACHE NATION, DR CONNORS Attending Unavailable CARROLL, DR DARBY Primary Care Unavailable JICARILLA APACHE NATION, DR CONNORS Admitting Unavailable JICARILLA APACHE NATION, DR CONNORS Consulting Unavailable MISC, DR OBRIEN Attending Unavailable MISC, DR OBRIEN Admitting Unavailable CARROLL, DR DARBY Primary Care Unavailable MISC, DR OBRIEN Consulting Unavailable MISC, DR OBRIEN Consulting Unavailable MISC, DOCTOR Attending Unavailable MISC, DOCTOR Admitting Unavailable CARROLL, DR DARBY Primary Care Unavailable MISC, DOCTOR Attending Unavailable MISC, DR OBRIEN Admitting Unavailable MISC, DR OBRIEN Consulting Unavailable CARROLL, DR DARBY Primary Care Unavailable MISC, DR OBRIEN Attending Unavailable MISC, DR OBRIEN Admitting Unavailable MISC, DR OBRIEN Consulting Unavailable CARROLL, DR DARBY Primary Care Unavailable JICARILLA APACHE NATION, DR CONNORS Consulting Unavailable JICARILLA APACHE NATION, DR CONNORS Attending Unavailable CARROLL, DR DARBY Primary Care Unavailable JICARILLA APACHE NATION, DR CONNORS Admitting Unavailable MISC, DOCTOR Attending Unavailable MISC, DR OBRIEN Admitting Unavailable MISC, DR OBRIEN Consulting Unavailable CARROLL, DR DARBY Primary Care Unavailable MISC, DR OBRIEN Attending Unavailable MISC, DR OBRIEN Admitting Unavailable MISC, DR OBRIEN Consulting Unavailable UZMA, DR DARBY Primary Care Unavailable JICARILLA APACHE NATION, DR CONNORS Consulting Unavailable JICARILLA APACHE NATION, DR CONNORS Attending Unavailable JICARILLA APACHE NATION, DR CONNORS Admitting Unavailable UZMA, DR DARBY Primary Care Unavailable VIRGIL HAYNES Attending Unavailable MIKE, VIRGIL Attending Unavailable VIRGIL HAYNES Attending Unavailable RAMON CARROLL Attending Unavailable JOHN PADILLA Attending Unavailable JOHN PADILLA Attending Unavailable Medications Current Medications Medication Drug Class(es) Dates Sig (Normalized) Sig (Original) [id number] 200 actuat albuterol 0.09 mg/actuat metered dose [...] 1.5 mg/ml oral solution (1 source) Uncompetitive Q-fwzljx-G-aspartate Receptor Antagonist, Sigma-1 Agonist Start: 03-27-20 23 take 10 mL by mouth every eight hours Mary Alice DM 7.5-7.5 MG/5ML 10 mL Orally every 8 hours for 5 days Feb, Active ergocalciferol 1.25 mg oral capsule (9 sources) Provitamin D2 Compound Start: 06-27-19 take 1 capsule by mouth every week Vitamin D (Ergocalciferol) 71909 UNIT 1 capsule Orally Once a Week [...] Start: 12-25-2021 take 1 capsule by mo [facility] every eight hours Tessalon Perles 100 [...] 03-27-2017 Episodic Other aftercare (4 sources) Other fdc (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 therapy; Translations: [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 pyogenes Org specific cx Ql (Throat) Negative [employer] Other Quick Strep [employer] Other 29on 03-17-2023 29 Addended by: TOSHA LAGOS on: 03/17/2023 11:44 AM Modules accepted: Orders [facility] Follow-Upon 03-17-2023 Follow-Up [id number] Tanika Grimm 1955 F Date Provider Department Center 03/17/2023 124-MAYAVIRGIL Magallanes TXP None No family history on file Level of Service:69493 [place] OFFICE/OUTPATIENT ESTABLISHED LOW MDM 20 MIN Reason for Visit and Comments: Kidney Follow-up [[id number]] - Patient would like to know if Virgil would prescribe depression medication. [facility] 36on 01-31-2023 36 Transplant Pharmacis [...] need for taper. The patient's verbalized understanding. Operations Support Analyst added medication to med list. The patient's stated patient will be getting a DEXA scan and recommended to not have calcium 3 days before. Reviewed medication list for any products containing calcium - no medications found. No other questions or concerns at this time. [facility] Telephoneon 01-31-2023 Telephone [id number] Tanika Grimm 1955 F Date Provider Department Center 01/31/2023 3915-JAH PAGE TXP None No family history on file Reason for Visit and Comments: Transplant Pharmacist - Drug Information [[id number]] [facility] Documentationon 10-09-2022 Documentation [id number] Tanika Grimm 1955 F Date Provider Department Center 10/09/2022 3193-KATY CRUZ TXP None No family history on file [facility] 29on 09-17-2022 29 Addended by: FERNANDA NAGEL on: 09/17/2022 12:16 PM Modules accepted: Orders Normal [facility] CREATININE, URINE, RANDOMon 09-17-2022 Creatinine (U) [Mass/Vol] 252.0 mg/dL Normal 26-299 [facility] Comment on above: Performed By: #### L [id number] ####[facility] ([facility])[address] [place] [address] Follow-Upon 09-17-2022 Follow-Up [id number] Tanika Grimm 1955 Date Provider Department Center 09/17/2022 124-VIRGIL HAYNES TXP None No family history on file Level of Service:91299 [place] OFFICE/OUTPATIENT ESTABLISHED LOW MDM 20-29 MIN Reason for Visit and Comments: Kidney Follow-up [] - Patient has no new concerns Normal [facility] PROTEIN, URINE, RANDOMon Protein (U) [Mass/Vol] 29.5 mg/dL Normal [facility] Comment on above: Result Comment: Ther e are no established reference values for random urine specimens. Performed By: #### L [id number] ####[facility] ([facility])[address] [place] [address] Documentationon 08-15-2022 Documentation [id number] Tanika Grimm 1955 Provider Department Center 08/15/2022 3193-KATY CRUZ TXP None No family history on file Normal [facility] BILIRUBIN CONJUGATED (DIRECT )on 08-12-2022 BILI, CONJUGATED 0.1 mg/dL Normal 0.0-0.2 [facility] Comment on above: Performed By: #### D DAVIDSON, MG, PHOS, CMP, LIPID, URIC #### [facility] [address] [address] [address] Sarmad Patino GLYCOHEMOGLOBIN A1Con 2022 ADA RECOMMENDATION SEE BELOW Normal [facility] Comment on above: Result Comment: ADA RECOMMENDED LIMIT 4.0 - 6.0 ADA THERAPEUTIC TARGET < 7.0 ACTION SUGGESTED > 7.0 Performed By: #### D DAVIDSON, MG, PHOS, CMP, LIPID, URIC #### [facility] [address] [place] [address] Dr. Sarmad Patino Glucose [Mass/Vol] 108 mg/dL Normal [facility] Comment on above: Performed By: #### D DAVIDSON, MG, PHOS, CMP, LIPID, URIC #### [facility] [address] [place] [address] Dr. Sarmad Patino HbA1c (Bld) [Mass fraction] 5.4 % Normal 4.5-6.2 [facility] Comment on above: Performed By: #### D DAVIDSON, MG, PHOS, CMP, LIPID, URIC #### [facility] [address] [place] [address] Dr. Sarmad Patino MAGNESIUMon 08-12-2022 Magnesium [Mass/Vol] 1.7 mg/dL Critically low 1.8-2.4 [facility] Comment on above: Performed By: #### D DAVIDSON, MG, PHOS, CMP, LIPID, URIC #### [facility] [address] [place] [address] Dr. Sarmad Patino PHOSPHORUSon 08-12-2022 Phosphate [Mass/Vol] 3.9 mg/dL Normal 2.6-4.7 [facility] Comment on above: Performed By: #### U MAXI, LIPID, MG, CMP, DBIL, PHOS #### [facility] [address] [place] [address] Dr. Sarmad Patino PROF 14(COMP METB)on 023 Albumin [Mass/Vol] 3.9 g/dL Normal 3.4-5.0 [facility] Comment on above: Performed By: #### D DAVIDSON, MG, PHOS, CMP, LIPID, URIC #### [facility] [address] [place] [address] Dr. Sarmad Patino Albumin/Globulin [Mass ratio] 1.2 {ratio} Normal [facility] Comment on above: Performed By: #### D DAVIDSON, MG, PHOS, CMP, LIPID, URIC #### [facility] [address] [address] [address] Sarmad Patino ALP [Catalytic activity/Vol] 126 U/L Critically high 46-116 [facility] Comment on above: Performed By: #### D DAVIDSON, MG, PHOS, CMP, LIPID, URIC #### [facility] [address] [address] [address] Sarmad Patino ALT [Catalytic activity/Vol] 18 U/L Normal 14-59 [facility] Comment on above: Performed By: #### D DAVIDSON, MG, PHOS, CMP, LIPID, URIC #### [facility] [address] [place] [address] Dr. Sarmad Patino Anion gap [Moles/Vol] 10.4 mmol/L Normal [facility] Comment on above: Performed By: #### D DAVIDSON, MG, PHOS, CMP, LIPID, URIC #### [facility] [address] [place] [address] Dr. Sarmad Patino AST [Catalytic activity/Vol] 14 U/L Critically low 15-37 [facility] Comment on above: Performed By: #### D DAVIDSON, MG, PHOS, CMP, LIPID, URIC #### [facility] [address] [place] [address] Dr. Sarmad Patino Bilirubin [Mass/Vol] 0.7 mg/dL Normal 0.2-1.0 [facility] Comment on above: Performed By: #### D DAVIDSON, MG, PHOS, CMP, LIPID, URIC #### [facility] [address] [place] [address] Dr. Sarmad Patino Calcium [Mass/Vol] 9.8 mg/dL Normal 8.5-10.1 [facility] Comment on above: Performed By: #### D DAVIDSON, MG, PHOS, CMP, LIPID, URIC #### [facility] [address] [place] [address] Dr. Sarmad Patino Chloride [Moles/Vol] 106 mmol/L Normal 98-107 [facility] Comment on above: Performed By: #### D DAVIDSON, MG, PHOS, CMP, LIPID, URIC #### [facility] [address] [address] [address] Sarmad Patino CO2 [Moles/Vol] 32.1 mmol/L Critically high 21.0-32.0 [facility] Comment on above: Performed By: #### D DAVIDSON, MG, PHOS, CMP, LIPID, URIC #### [facility] [address] [address] [address] Sarmad Patino Creatinine [Mass/Vol] 0.92 mg/dL Normal 0.55-1.02 [facility] Comment on above: Performed By: #### D DAVIDSON, MG, PHOS, CMP, LIPID, URIC #### [facility] [address] [place] [address] Dr. Sarmad Patino EGFR-AF [place]IZ[place] >60 Normal >=60 [facility] Comment on above: Performed By: #### D DAVIDSON, MG, PHOS, CMP, LIPID, URIC #### [facility] [address] [place] [address] Dr. Sarmad Patino EGFR-NON AF [place]IZ[place] >60 Normal >=60 [facility] Comment on above: Performed By: #### D DAVIDSON, MG, PHOS, CMP, LIPID, URIC #### [facility] [address] [place] [address] Dr. Sarmad Patino Globulin (S) [Mass/Vol] 3.3 g/dL Normal [facility] Comment on above: Performed By: #### D DAVIDSON, MG, PHOS, CMP, LIPID, URIC #### [facility] [address] [place] [address] Dr. Sarmad Patino Glucose [Mass/Vol] 102 mg/dL Normal 74-106 [facility] Comment on above: Performed By: #### D DAVIDSON, MG, PHOS, CMP, LIPID, URIC #### [facility] [address] [place] [address] Dr. Sarmad Patino Potassium [Moles/Vol] 4.5 mmol/L Normal 3.5-5.1 [facility] Comment on above: Performed By: #### D DAVIDSON, MG, PHOS, CMP, LIPID, URIC #### [facility] [address] [place] [address] Dr. Sarmad Patino Protein [Mass/Vol] 7.2 g/dL Normal 6.4-8.2 [facility] Comment on above: Performed By: #### D DAVIDSON, MG, PHOS, CMP, LIPID, URIC #### [facility] [address] [address] [address] Sarmad Patino Sodium [Moles/Vol] 144 mmol/L Normal 136-145 [facility] Comment on above: Performed By: #### D DAVIDSON, MG, PHOS, CMP, LIPID, URIC #### [facility] [address] [address] [address] Sarmad Patino Urea nitrogen [Mass/Vol] 20.0 mg/dL Critically high 7.0-18.0 [facility] Comment on above: Performed By: #### D DAVIDSON, MG, PHOS, CMP, LIPID, URIC #### [facility] [address] [place] [address] Dr. Sarmad Patino Urea nitrogen/Creatinine [Mass ratio] 21.7 mg/mg Normal [facility] Comment on above: Performed By: #### D DAVIDSON, MG, PHOS, CMP, LIPID, URIC #### [facility] [address] [place] [address] Dr. Sarmad Patino URIC ACID SERUMon 08-12-2022 Urate [Mass/Vol] 5.2 mg/dL Normal 2.6-6.0 [facility] Comment on above: Performed By: #### D DAVIDSON, MG, PHOS, CMP, LIPID, URIC #### [facility] [address] [place] [address] Dr. Sarmad Patino MG MAMM SCREEN 3D DAVIDSON CADon 07-23-2022 MG MAMM SCREEN 3D DAVIDSON CAD Patient: TANIKA GRIMMKarlie Exam Date: 07/23/2022 : 1955 Gender:F Ordering : DR RAMON CARROLL M.D. Admission #: [id number] Family : Order #: [id number] CLICK HERE TO VIEW EXAM RADIOLOGY REPORT [...] Treatments None Family Cancers None LOCATION: [facility] BREAST COMPOSITION: Extremely dense, which lowers [...] Bernard M.D. on 07/23/2022 at 16:59 Normal [facility] FK506 (TACROLIMUS) WHOLE BLO ODon 07-10-2022 Tacrolimus (FK506), Blood 3.8 ng/mL Normal 2.0-20.0 [facility] Comment on above: Result Comment: Trou gh (immediately following transplant) 15.0 . Trough (steady state, 2 weeks or more after transplant): 3.0 - 8.0 . Performed by LC-MS/MS technology. Performed By: #### D DAVIDSON, MG, PHOS, CMP, LIPID, URIC #### [facility] [address] [address] [address] Sarmad Patino BILIRUBIN CONJUGATED (DIRECT )on 07-08-2022 BILI, CONJUGATED 0.1 mg/dL Normal 0.0-0.2 [facility] Comment on above: Performed By: #### U MAXI, LIPID, MG, CMP, DBIL, PHOS #### [facility] [address] [address] [address] Sarmad Patino GLYCOHEMOGLOBIN A1Con 2022 ADA RECOMMENDATION SEE BELOW Normal [facility] Comment on above: Result Comment: ADA RECOMMENDED LIMIT 4.0 - 6.0 ADA THERAPEUTIC TARGET < 7.0 ACTION SUGGESTED > 7.0 Performed By: #### D DAVIDSON, MG, PHOS, CMP, LIPID, URIC #### [facility] [address] [address] [address] Sarmad Patino Glucose [Mass/Vol] 105 mg/dL Normal [facility] Comment on above: Performed By: #### D DAVIDSON, MG, PHOS, CMP, LIPID, URIC #### [facility] [address] [address] [address] Sarmad Patino HbA1c (Bld) [Mass fraction] 5.3 % Normal 4.5-6.2 [facility] Comment on above: Performed By: #### D DAVIDSON, MG, PHOS, CMP, LIPID, URIC #### [facility] [address] [place] [address] Dr. Sarmad Patino MAGNESIUMon 07-08-2022 Magnesium [Mass/Vol] 1.8 mg/dL Normal 1.8-2.4 [facility] Comment on above: Performed By: #### U MAXI, LIPID, MG, CMP, DBIL, PHOS #### [facility] [address] [place] [address] Dr. Sarmad Patino PHOSPHORUSon 07-08-2022 Phosphate [Mass/Vol] 3.8 mg/dL Normal 2.6-4.7 [facility] Comment on above: Performed By: #### U MAXI, LIPID, MG, CMP, DBIL, PHOS #### [facility] [address] [place] [address] Dr. Sarmad Patino PROF 14(COMP METB)on 023 Albumin [Mass/Vol] 3.7 g/dL Normal 3.4-5.0 [facility] Comment on above: Performed By: #### U MAXI, LIPID, MG, CMP, DBIL, PHOS #### [facility] [address] [place] [address] Dr. Sarmad Patino Albumin/Globulin [Mass ratio] 1.1 {ratio} Normal [facility] Comment on above: Performed By: #### U MAXI, LIPID, MG, CMP, DBIL, PHOS #### [facility] [address] [address] [address] Sarmad Patino ALP [Catalytic activity/Vol] 124 U/L Critically high 46-116 [facility] Comment on above: Performed By: #### U MAXI, LIPID, MG, CMP, DBIL, PHOS #### [facility] [address] [place] [address] Dr. Sarmad Patino ALT [Catalytic activity/Vol] 20 U/L Normal 14-59 [facility] Comment on above: Performed By: #### U MAXI, LIPID, MG, CMP, DBIL, PHOS #### [facility] [address] [place] [address] Dr. Sarmad Patino Anion gap [Moles/Vol] 11.5 mmol/L Normal [facility] Comment on above: Performed By: #### U MAXI, LIPID, MG, CMP, DBIL, PHOS #### [facility] [address] [place] [address] Dr. Sarmad Patino AST [Catalytic activity/Vol] 12 U/L Critically low 15-37 [facility] Comment on above: Performed By: #### U MAXI, LIPID, MG, CMP, DBIL, PHOS #### [facility] [address] [place] [address] Dr. Sarmad Patino Bilirubin [Mass/Vol] 0.5 mg/dL Normal 0.2-1.0 [facility] Comment on above: Performed By: #### U MAXI, LIPID, MG, CMP, DBIL, PHOS #### [facility] [address] [place] [address] Dr. Sarmad Patino Calcium [Mass/Vol] 9.6 mg/dL Normal 8.5-10.1 [facility] Comment on above: Performed By: #### U MAXI, LIPID, MG, CMP, DBIL, PHOS #### [facility] [address] [place] [address] Dr. Sarmad Patino Chloride [Moles/Vol] 106 mmol/L Normal 98-107 [facility] Comment on above: Performed By: #### U MAXI, LIPID, MG, CMP, DBIL, PHOS #### [facility] [address] [address] [address] Sarmad Patino CO2 [Moles/Vol] 29.7 mmol/L Normal 21.0-32.0 [facility] Comment on above: Performed By: #### U MAXI, LIPID, MG, CMP, DBIL, PHOS #### [facility] [address] [place] [address] Dr. Sarmad Patino Creatinine [Mass/Vol] 0.77 mg/dL Normal 0.55-1.02 [facility] Comment on above: Performed By: #### U MAXI, LIPID, MG, CMP, DBIL, PHOS #### [facility] [address] [place] [address] Dr. Sarmad Patino EGFR-AF [place]IZ[place] >60 Normal >=60 [facility] Comment on above: Performed By: #### U MAXI, LIPID, MG, CMP, DBIL, PHOS #### [facility] [address] [place] [address] Dr. Sarmad Patino EGFR-NON AF [place]IZ[place] >60 Normal >=60 [facility] Comment on above: Performed By: #### U MAXI, LIPID, MG, CMP, DBIL, PHOS #### [facility] [address] [place] [address] Dr. Sarmad Patino Globulin (S) [Mass/Vol] 3.4 g/dL Normal [facility] Comment on above: Performed By: #### U MAXI, LIPID, MG, CMP, DBIL, PHOS #### [facility] [address] [place] [address] Dr. Sarmad Patino Glucose [Mass/Vol] 97 mg/dL Normal 74-106 [facility] Comment on above: Performed By: #### U MAXI, LIPID, MG, CMP, DBIL, PHOS #### [facility] [address] [place] [address] Dr. Sarmad Patino Potassium [Moles/Vol] 4.2 mmol/L Normal 3.5-5.1 [facility] Comment on above: Performed By: #### U MAXI, LIPID, MG, CMP, DBIL, PHOS #### [facility] [address] [address] [address] Sarmad Patino Protein [Mass/Vol] 7.1 g/dL Normal 6.4-8.2 [facility] Comment on above: Performed By: #### U MAXI, LIPID, MG, CMP, DBIL, PHOS #### [facility] [address] [place] [address] Dr. Sarmad Patino Sodium [Moles/Vol] 143 mmol/L Normal 136-145 [facility] Comment on above: Performed By: #### U MAXI, LIPID, MG, CMP, DBIL, PHOS #### [facility] [address] [place] [address] Dr. Sarmad Patino Urea nitrogen [Mass/Vol] 26.0 mg/dL Critically high 7.0-18.0 [facility] Comment on above: Performed By: #### U MAXI, LIPID, MG, CMP, DBIL, PHOS #### [facility] [address] [place] [address] Dr. Sarmad Patino Urea nitrogen/Creatinine [Mass ratio] 33.8 mg/mg Normal [facility] Comment on above: Performed By: #### U MAXI, LIPID, MG, CMP, DBIL, PHOS #### [facility] [address] [place] [address] Dr. Sarmad Patino URIC ACID SERUMon 07-08-2022 Urate [Mass/Vol] 4.7 mg/dL Normal 2.6-6.0 [facility] Comment on above: Performed By: #### U MAXI, LIPID, MG, CMP, DBIL, PHOS #### [facility] [address] [place] [address] Dr. Sarmad Patino FK506 (TACROLIMUS) WHOLE BLO ODon 06-13-2022 Tacrolimus (FK506), Blood 3.0 ng/mL Normal 2.0-20.0 [facility] Comment on above: Result Comment: Trou gh (immediately following transplant) 15.0 . Trough (steady state, 2 weeks or more after transplant): 3.0 - 8.0 . Performed by LC-MS/MS technology. Performed By: #### D DAVIDSON, MG, PHOS, CMP, LIPID, URIC #### [facility] [address] [address] [address] Sarmad Patino BK VIRUS PCR QUANTon 023 BKV DNA QUANT PCR PLASMA Negative Normal Negative [facility] Comment on above: Result Comment: No B K DNA detected. . The linear range of the assay is 22 - 100,000,000 IU/mL. Performed By: #### B KVIRUS #### [facility] [address] [place] [address] Dr. Sarmad Patino Log10 BKV DNA Plasma Normal [facility] Comment on above: Performed By: #### B KVIRUS #### [facility] [address] [place] [address] Dr. Sarmad Patino BILIRUBIN CONJUGATED (DIRECT )on 06-10-2022 BILI, CONJUGATED 0.1 mg/dL Normal 0.0-0.2 [facility] Comment on above: Performed By: #### U MAXI, LIPID, MG, CMP, DBIL, PHOS #### [facility] [address] [place] [address] Dr. Sarmad Patino GLYCOHEMOGLOBIN A1Con 2022 ADA RECOMMENDATION SEE BELOW Normal [facility] Comment on above: Result Comment: ADA RECOMMENDED LIMIT 4.0 - 6.0 ADA THERAPEUTIC TARGET < 7.0 ACTION SUGGESTED > 7.0 Performed By: #### D DAVIDSON, MG, PHOS, CMP, LIPID, URIC #### [facility] [address] [place] [address] Dr. Sarmad Patino Glucose [Mass/Vol] 114 mg/dL Normal [facility] Comment on above: Performed By: #### D DAVIDSON, MG, PHOS, CMP, LIPID, URIC #### [facility] [address] [place] [address] Dr. Sarmad Patino HbA1c (Bld) [Mass fraction] 5.6 % Normal 4.5-6.2 [facility] Comment on above: Performed By: #### D DAVIDSON, MG, PHOS, CMP, LIPID, URIC #### [facility] [address] [place] [address] Dr. Sarmad Patino MAGNESIUMon 06-10-2022 Magnesium [Mass/Vol] 1.6 mg/dL Critically low 1.8-2.4 [facility] Comment on above: Performed By: #### U MAXI, LIPID, MG, CMP, DBIL, PHOS #### [facility] [address] [place] [address] Dr. Sarmad Patino PROF 14(COMP METB)on 023 Albumin [Mass/Vol] 3.7 g/dL Normal 3.4-5.0 [facility] Comment on above: Performed By: #### U MAXI, LIPID, MG, CMP, DBIL, PHOS #### [facility] [address] [place] [address] Dr. Sarmad Patino Albumin/Globulin [Mass ratio] 1.1 {ratio} Normal [facility] Comment on above: Performed By: #### U MAXI, LIPID, MG, CMP, DBIL, PHOS #### [facility] [address] [place] [address] Dr. Sarmad Patino ALP [Catalytic activity/Vol] 142 U/L Critically high 46-116 [facility] Comment on above: Performed By: #### U MAXI, LIPID, MG, CMP, DBIL, PHOS #### [facility] [address] [place] [address] Dr. Sarmad Patino ALT [Catalytic activity/Vol] 29 U/L Normal 14-59 [facility] Comment on above: Performed By: #### U MAXI, LIPID, MG, CMP, DBIL, PHOS #### [facility] [address] [place] [address] Dr. Sarmad Patino Anion gap [Moles/Vol] 11.1 mmol/L Normal [facility] Comment on above: Performed By: #### U MAXI, LIPID, MG, CMP, DBIL, PHOS #### [facility] [address] [place] [address] Dr. Sarmad Patino AST [Catalytic activity/Vol] 19 U/L Normal 15-37 [facility] Comment on above: Performed By: #### U MAXI, LIPID, MG, CMP, DBIL, PHOS #### [facility] [address] [address] [address] Sarmad Patino Bilirubin [Mass/Vol] 0.6 mg/dL Normal 0.2-1.0 [facility] Comment on above: Performed By: #### U MAXI, LIPID, MG, CMP, DBIL, PHOS #### [facility] [address] [place] [address] Dr. Sarmad Patino Calcium [Mass/Vol] 9.8 mg/dL Normal 8.5-10.1 [facility] Comment on above: Performed By: #### U MAXI, LIPID, MG, CMP, DBIL, PHOS #### [facility] [address] [place] [address] Dr. Sarmad Patino Chloride [Moles/Vol] 103 mmol/L Normal 98-107 [facility] Comment on above: Performed By: #### U MAXI, LIPID, MG, CMP, DBIL, PHOS #### [facility] [address] [place] [address] Dr. Sarmad Patino CO2 [Moles/Vol] 30.7 mmol/L Normal 21.0-32.0 [facility] Comment on above: Performed By: #### U MAXI, LIPID, MG, CMP, DBIL, PHOS #### [facility] [address] [place] [address] Dr. Sarmad Patino Creatinine [Mass/Vol] 0.79 mg/dL Normal 0.55-1.02 [facility] Comment on above: Performed By: #### U MAXI, LIPID, MG, CMP, DBIL, PHOS #### [facility] [address] [place] [address] Dr. Sarmad Patino EGFR-AF [place]IZ[place] >60 Normal >=60 [facility] Comment on above: Performed By: #### U MAXI, LIPID, MG, CMP, DBIL, PHOS #### [facility] [address] [place] [address] Dr. Sarmad Patino EGFR-NON AF [place]IZ[place] >60 Normal >=60 [facility] Comment on above: Performed By: #### U MAXI, LIPID, MG, CMP, DBIL, PHOS #### [facility] [address] [address] [address] Sarmad Patino Globulin (S) [Mass/Vol] 3.4 g/dL Normal [facility] Comment on above: Performed By: #### U MAXI, LIPID, MG, CMP, DBIL, PHOS #### [facility] [address] [place] [address] Dr. Sarmad Patino Glucose [Mass/Vol] 94 mg/dL Normal 74-106 [facility] Comment on above: Performed By: #### U MAXI, LIPID, MG, CMP, DBIL, PHOS #### [facility] [address] [place] [address] Dr. Sarmad Patino Potassium [Moles/Vol] 3.8 mmol/L Normal 3.5-5.1 [facility] Comment on above: Performed By: #### U MAXI, LIPID, MG, CMP, DBIL, PHOS #### [facility] [address] [place] [address] Dr. Sarmad Patino Protein [Mass/Vol] 7.1 g/dL Normal 6.4-8.2 [facility] Comment on above: Performed By: #### U MAXI, LIPID, MG, CMP, DBIL, PHOS #### [facility] [address] [place] [address] Dr. Sarmad Patino Sodium [Moles/Vol] 141 mmol/L Normal 136-145 [facility] Comment on above: Performed By: #### U MAXI, LIPID, MG, CMP, DBIL, PHOS #### [facility] [address] [place] [address] Dr. Sarmad Patino Urea nitrogen [Mass/Vol] 17.0 mg/dL Normal 7.0-18.0 [facility] Comment on above: Performed By: #### U MAXI, LIPID, MG, CMP, DBIL, PHOS #### [facility] [address] [place] [address] Dr. Sarmad Patino Urea nitrogen/Creatinine [Mass ratio] 21.5 mg/mg Normal [facility] Comment on above: Performed By: #### U MAXI, LIPID, MG, CMP, DBIL, PHOS #### [facility] [address] [address] [address] Sarmad Patino URIC ACID SERUMon 06-10-2022 Urate [Mass/Vol] 5.1 mg/dL Normal 2.6-6.0 [facility] Comment on above: Performed By: #### U MAXI, LIPID, MG, CMP, DBIL, PHOS #### [facility] [address] [address] [address] Sarmad Patino BK VIRUS PCR QUANTon 023 BKV DNA QUANT PCR PLASMA Negative Normal Negative [facility] Comment on above: Result Comment: No B K DNA detected. . The linear range of the assay is 22 - 100,000,000 IU/mL. Performed By: #### U MAXI, LIPID, MG, CMP, DBIL, PHOS #### [facility] [address] [place] [address] Dr. Sarmad Patino Log10 BKV DNA Plasma Normal [facility] Comment on above: Performed By: #### U MAXI, LIPID, MG, CMP, DBIL, PHOS #### [facility] [address] [place] [address] Dr. Sarmad Patino Documentationon 05-13-2022 Documentation [id number] Tanika Grimm 1955 F Date Provider Department Center 05/13/2022 ANEL HELLER None No family history on file Normal [facility] FK506 (TACROLIMUS) WHOLE BLO ODon 05-13-2022 Tacrolimus (FK506), Blood 4.1 ng/mL Normal 2.0-20.0 [facility] Comment on above: Result Comment: Trou gh (immediately following transplant) 15.0 . Trough (steady state, 2 weeks or more after transplant): 3.0 - 8.0 . Performed by LC-MS/MS technology. Performed By: #### U MAXI, LIPID, MG, CMP, DBIL, PHOS #### [facility] [address] [place] [address] Dr. Sarmad Patino BILIRUBIN CONJUGATED (DIRECT )on 05-10-2022 BILI, CONJUGATED 0.1 mg/dL Normal 0.0-0.2 [facility] Comment on above: Performed By: #### D DAVIDSON, MG, PHOS, CMP, LIPID, URIC #### [facility] [address] [address] [address] Sarmad Patino Documentationon 05-10-2022 Documentation [id number] Tanika Grimm 1955 F Date Provider Department Center 05/10/2022 ANEL HELLER TXP None No family history on file Normal [facility] GLYCOHEMOGLOBIN A1Con 2022 ADA RECOMMENDATION SEE BELOW Normal [facility] Comment on above: Result Comment: ADA RECOMMENDED LIMIT 4.0 - 6.0 ADA THERAPEUTIC TARGET < 7.0 ACTION SUGGESTED > 7.0 Performed By: #### D DAVIDSON, MG, PHOS, CMP, LIPID, URIC #### [facility] [address] [place] [address] Dr. Sarmad Patino Glucose [Mass/Vol] 108 mg/dL Normal [facility] Comment on above: Performed By: #### D DAVIDSON, MG, PHOS, CMP, LIPID, URIC #### [facility] [address] [place] [address] Dr. Sarmad Patino HbA1c (Bld) [Mass fraction] 5.4 % Normal 4.5-6.2 [facility] Comment on above: Performed By: #### D DAVIDSON, MG, PHOS, CMP, LIPID, URIC #### [facility] [address] [place] [address] Dr. Sarmad Patino MAGNESIUMon 05-10-2022 Magnesium [Mass/Vol] 1.9 mg/dL Normal 1.8-2.4 [facility] Comment on above: Performed By: #### U MAXI, LIPID, MG, CMP, DBIL, PHOS #### [facility] [address] [place] [address] Dr. Sarmad Patino PROF 14(COMP METB)on 023 Albumin [Mass/Vol] 3.9 g/dL Normal 3.4-5.0 [facility] Comment on above: Performed By: #### D DAVIDSON, MG, PHOS, CMP, LIPID, URIC #### [facility] [address] [address] [address] Sarmad Patino Albumin/Globulin [Mass ratio] 1.2 {ratio} Normal [facility] Comment on above: Performed By: #### D DAVIDSON, MG, PHOS, CMP, LIPID, URIC #### [facility] [address] [address] [address] Sarmad Patino ALP [Catalytic activity/Vol] 114 U/L Normal 46-116 [facility] Comment on above: Performed By: #### D DAVIDSON, MG, PHOS, CMP, LIPID, URIC #### [facility] [address] [place] [address] Dr. Sarmad Patino ALT [Catalytic activity/Vol] 18 U/L Normal 14-59 [facility] Comment on above: Performed By: #### D DAVIDSON, MG, PHOS, CMP, LIPID, URIC #### [facility] [address] [place] [address] Dr. Sarmad Patino Anion gap [Moles/Vol] 15.9 mmol/L Normal [facility] Comment on above: Performed By: #### D DAVIDSON, MG, PHOS, CMP, LIPID, URIC #### [facility] [address] [place] [address] Dr. Sarmad Patino AST [Catalytic activity/Vol] 17 U/L Normal 15-37 [facility] Comment on above: Performed By: #### D DAVIDSON, MG, PHOS, CMP, LIPID, URIC #### [facility] [address] [place] [address] Dr. Sarmad Patino Bilirubin [Mass/Vol] 0.4 mg/dL Normal 0.2-1.0 [facility] Comment on above: Performed By: #### D DAVIDSON, MG, PHOS, CMP, LIPID, URIC #### [facility] [address] [place] [address] Dr. Sarmad Patino Calcium [Mass/Vol] 9.8 mg/dL Normal 8.5-10.1 [facility] Comment on above: Performed By: #### D DAVIDSON, MG, PHOS, CMP, LIPID, URIC #### [facility] [address] [place] [address] Dr. Sarmad Patino Chloride [Moles/Vol] 103 mmol/L Normal 98-107 [facility] Comment on above: Performed By: #### D DAVIDSON, MG, PHOS, CMP, LIPID, URIC #### [facility] [address] [address] [address] Sarmad Patino CO2 [Moles/Vol] 29.2 mmol/L Normal 21.0-32.0 [facility] Comment on above: Performed By: #### D DAVIDSON, MG, PHOS, CMP, LIPID, URIC #### [facility] [address] [place] [address] Dr. Sarmad Patino Creatinine [Mass/Vol] 0.74 mg/dL Normal 0.55-1.02 [facility] Comment on above: Performed By: #### D DAVIDSON, MG, PHOS, CMP, LIPID, URIC #### [facility] [address] [place] [address] Dr. Sarmad Patino EGFR-AF [place]IZ[place] >60 Normal >=60 [facility] Comment on above: Performed By: #### D DAVIDSON, MG, PHOS, CMP, LIPID, URIC #### [facility] [address] [place] [address] Dr. Sarmad Patino EGFR-NON AF [place]IZ[place] >60 Normal >=60 [facility] Comment on above: Performed By: #### D DAVIDSON, MG, PHOS, CMP, LIPID, URIC #### [facility] [address] [place] [address] Dr. Sarmad Patino Globulin (S) [Mass/Vol] 3.2 g/dL Normal [facility] Comment on above: Performed By: #### D DAVIDSON, MG, PHOS, CMP, LIPID, URIC #### [facility] [address] [place] [address] Dr. Sarmad Patino Glucose [Mass/Vol] 94 mg/dL Normal 74-106 [facility] Comment on above: Performed By: #### D DAVIDSON, MG, PHOS, CMP, LIPID, URIC #### [facility] [address] [place] [address] Dr. Sarmad Patino Potassium [Moles/Vol] 4.1 mmol/L Normal 3.5-5.1 [facility] Comment on above: Performed By: #### D DAVIDSON, MG, PHOS, CMP, LIPID, URIC #### [facility] [address] [address] [address] Sarmad Patino Protein [Mass/Vol] 7.1 g/dL Normal 6.4-8.2 [facility] Comment on above: Performed By: #### D DAVIDSON, MG, PHOS, CMP, LIPID, URIC #### [facility] [address] [address] [address] Sarmad Patino Sodium [Moles/Vol] 144 mmol/L Normal 136-145 [facility] Comment on above: Performed By: #### D DAVIDSON, MG, PHOS, CMP, LIPID, URIC #### [facility] [address] [place] [address] Dr. Sarmad Patino Urea nitrogen [Mass/Vol] 18.0 mg/dL Normal 7.0-18.0 [facility] Comment on above: Performed By: #### D DAVIDSON, MG, PHOS, CMP, LIPID, URIC #### [facility] [address] [place] [address] Dr. Sarmad Patino Urea nitrogen/Creatinine [Mass ratio] 24.3 mg/mg Normal [facility] Comment on above: Performed By: #### D DAVIDSON, MG, PHOS, CMP, LIPID, URIC #### [facility] [address] [place] [address] Dr. Sarmad Patino URIC ACID SERUMon 05-10-2022 Urate [Mass/Vol] 5.1 mg/dL Normal 2.6-6.0 [facility] Comment on above: Performed By: #### U MAXI, LIPID, MG, CMP, DBIL, PHOS #### [facility] [address] [place] [address] Dr. Sarmad Patino Documentationon 04-17-2022 Documentation [id number] Tanika Grimm 1955 F Date Provider Department Center 04/17/2022 [id number], TYMARA TXP None No family history on file Normal [facility] MYCOPHENOLIC ACIDon 04-17-19 Mycophenolic Acid 1.2 ug/mL Normal 1.0-3.5 [facility] Comment on above: Performed By: #### D DAVIDSON, MG, PHOS, CMP, LIPID, URIC #### [facility] [address] [address] [address] Sarmad Patino Mycophenolic Acid Glucuronide 37 ug/mL Normal 15-125 [facility] Comment on above: Result Comment: [facility] 's Reference Range: 35-100 mcg/mL. Performed By: #### D DAVIDSON, MG, PHOS, CMP, LIPID, URIC #### [facility] [address] [address] [address] Sarmad Patino Documentationon 04-12-2022 Documentation [id number] Tanika Grimm 1955 F Date Provider Department Center 04/12/2022 Flaco-ANEL MIRANDA TXGely None No family history on file Normal [facility] FK506 (TACROLIMUS) WHOLE BLO ODon 04-10-2022 Tacrolimus (FK506), Blood 4.2 ng/mL Normal 2.0-20.0 [facility] Comment on above: Result Comment: Trou gh (immediately following transplant) 15.0 . Trough (steady state, 2 weeks or more after transplant): 3.0 - 8.0 . Performed by LC-MS/MS technology. Performed By: #### D DAVIDSON, MG, PHOS, CMP, LIPID, URIC #### [facility] [address] [address] [address] Sarmad Patino BILIRUBIN CONJUGATED (DIRECT )on 04-08-2022 BILI, CONJUGATED 0.1 mg/dL Normal 0.0-0.2 [facility] Comment on above: Performed By: #### U MAXI, LIPID, MG, CMP, DBIL, PHOS #### [facility] [address] [address] [address] Sarmad Patino CBC AUTO DIFFon 04-08-2022 BASO # 0.0 103/ul Normal 0.0-0.1 [facility] Comment on above: Performed By: #### D DAVIDSON, MG, PHOS, CMP, LIPID, URIC #### [facility] [address] [place] [address] Dr. Sarmad Patino Basophils/100 WBC (Bld) 0.3 % Normal 0.2-2.0 [facility] Comment on above: Performed By: #### D DAVIDSON, MG, PHOS, CMP, LIPID, URIC #### [facility] [address] [place] [address] Dr. Sarmad Patino EO # 0.1 103/ul Normal 0.0-0.7 [facility] Comment on above: Performed By: #### D DAVIDSON, MG, PHOS, CMP, LIPID, URIC #### [facility] [address] [place] [address] Dr. Sarmad Patino Eosinophils/100 WBC (Bld) 1.4 % Normal 0.9-7.0 [facility] Comment on above: Performed By: #### D DAVIDSON, MG, PHOS, CMP, LIPID, URIC #### [facility] [address] [place] [address] Dr. Sarmad Patino Erythrocyte distribution width (RBC) [Ratio] 15.8 % Critically high 11.0-15.0 [facility] Comment on above: Performed By: #### D DAVIDSON, MG, PHOS, CMP, LIPID, URIC #### [facility] [address] [place] [address] Dr. Sarmad Patino Hematocrit (Bld) [Volume fraction] 43.0 % Normal 36.0-48.0 [facility] Comment on above: Performed By: #### D DAVIDSON, MG, PHOS, CMP, LIPID, URIC #### [facility] [address] [place] [address] Dr. Sarmad Patino Hemoglobin (Bld) [Mass/Vol] 15.0 g/dL Normal 12.0-16.0 [facility] Comment on above: Performed By: #### D DAVIDSON, MG, PHOS, CMP, LIPID, URIC #### [facility] [address] [place] [address] Dr. Sarmad Patino IG # 0.01 10e3/ul Normal 0.00-0.03 [facility] Comment on above: Performed By: #### D DAVIDSON, MG, PHOS, CMP, LIPID, URIC #### [facility] [address] [place] [address] Dr. Sarmad Patino IG % 0.1 % Normal 0.0-0.5 [facility] Comment on above: Performed By: #### D DAVIDSON, MG, PHOS, CMP, LIPID, URIC #### [facility] [address] [place] [address] Dr. Sarmad Patino LYMPH # 1.3 103/ul Normal 1.2-3.8 [facility] Comment on above: Performed By: #### D DAVIDSON, MG, PHOS, CMP, LIPID, URIC #### [facility] [address] [place] [address] Dr. Sarmad Patino Lymphocytes/100 WBC (Bld) 18.3 % Critically low 20.5-60.0 [facility] Comment on above: Performed By: #### D DAVIDSON, MG, PHOS, CMP, LIPID, URIC #### [facility] [address] [place] [address] Dr. Sarmad Patino MANUAL DIFF REQ NO Normal [facility] Comment on above: Performed By: #### D DAVIDSON, MG, PHOS, CMP, LIPID, URIC #### [facility] [address] [place] [address] Dr. Sarmad Patino MCH (RBC) [Entitic mass] 29.7 pg Normal 26.7-34.0 [facility] Comment on above: Performed By: #### D DAVIDSON, MG, PHOS, CMP, LIPID, URIC #### [facility] [address] [place] [address] Dr. Sarmad Patino MCHC (RBC) [Mass/Vol] 34.9 g/dL Normal 29.9-35.2 [facility] Comment on above: Performed By: #### D DAVIDSON, MG, PHOS, CMP, LIPID, URIC #### [facility] [address] [place] [address] Dr. Sarmad Patino MCV (RBC) [Entitic vol] 85.1 fL Normal 81.0-99.0 [facility] Comment on above: Performed By: #### D DAVIDSON, MG, PHOS, CMP, LIPID, URIC #### [facility] [address] [place] [address] Dr. Sarmad Patino MONO # 0.7 103/ul Normal 0.3-0.8 [facility] Comment on above: Performed By: #### D DAVIDSON, MG, PHOS, CMP, LIPID, URIC #### [facility] [address] [place] [address] Dr. Sarmad Patino Monocytes/100 WBC (Bld) 9.8 % Normal 1.7-12.0 [facility] Comment on above: Performed By: #### D DAVIDSON, MG, PHOS, CMP, LIPID, URIC #### [facility] [address] [place] [address] Dr. Sarmad Patino NEUT # 5.1 103/ul Normal 1.4-6.5 [facility] Comment on above: Performed By: #### D DAVIDSON, MG, PHOS, CMP, LIPID, URIC #### [facility] [address] [place] [address] Dr. Sarmad Patino Neutrophils/100 WBC (Bld) 70.1 % Normal 43.0-75.0 [facility] Comment on above: Performed By: #### D DAVIDSON, MG, PHOS, CMP, LIPID, URIC #### [facility] [address] [place] [address] Dr. Sarmad Patino Platelet mean volume (Bld) [Entitic vol] 10.4 fL Normal 9.5-13.5 [facility] Comment on above: Performed By: #### D DAVIDSON, MG, PHOS, CMP, LIPID, URIC #### [facility] [address] [place] [address] Dr. Sarmad Patino PLT 229 103/ul Normal 150-450 [facility] Comment on above: Performed By: #### D DAVIDSON, MG, PHOS, CMP, LIPID, URIC #### [facility] [address] [place] [address] Dr. Sarmad Patino RBC 5.05 106/ul Normal 4.20-5.40 [facility] Comment on above: Performed By: #### D DAVIDSON, MG, PHOS, CMP, LIPID, URIC #### [facility] [address] [address] [address] Sarmad Patino WBC 7.2 103/ul Normal 4.0-11.0 [facility] Comment on above: Performed By: #### D DAVIDSON, MG, PHOS, CMP, LIPID, URIC #### [facility] [address] [address] [address] Sarmad Patino LIPID PROFILEon 04-08-2022 CHOL-HDL RATIO NORM SEE BELOW Normal [facility] Comment on above: Result Comment: 3.3 - 4.4 LOW RISK 4.4 - 7.1 AVERAGE RISK 7.1 - 11.0 MODERATE RISK >11.0 HIGH RISK Performed By: #### U MAXI, LIPID, MG, CMP, DBIL, PHOS #### [facility] [address] [place] [address] Dr. Sarmad Patino Cholesterol [Mass/Vol] 134 mg/dL Normal <=200 [facility] Comment on above: Performed By: #### U MAXI, LIPID, MG, CMP, DBIL, PHOS #### [facility] [address] [place] [address] Dr. Sarmad Patino Cholesterol in HDL [Mass/Vol] 55 mg/dL Normal 40-60 [facility] Comment on above: Performed By: #### U MAXI, LIPID, MG, CMP, DBIL, PHOS #### [facility] [address] [address] [address] Sarmad Patino Cholesterol in LDL [Mass/Vol] 56.6 mg/dL Normal [facility] Comment on above: Performed By: #### U MAXI, LIPID, MG, CMP, DBIL, PHOS #### [facility] [address] [place] [address] Dr. Sarmad Patino Cholesterol.total/C holesterol in HDL [Mass ratio] 2.4 {ratio} Normal [facility] Comment on above: Performed By: #### U MAXI, LIPID, MG, CMP, DBIL, PHOS #### [facility] [address] [address] [address] Sarmad Patino HDL NORMAL > or = 60 mg/dl - LO W CARDIOVASCULAR RISK <40 mg/dl - HIGH CARDIOVASCULAR RISK Normal [facility] Comment on above: Performed By: #### U MAXI, LIPID, MG, CMP, DBIL, PHOS #### [facility] [address] [address] [address] Sarmad Patino LDL CALC NORMAL SEE BELOW Normal [facility] Comment on above: Result Comment: <100 mg/dl OPTIMAL 100 - 129 mg/dl NEAR OR ABOVE OPTIMAL 130 - 159 mg/dl BORDERLINE HIGH 160 - 189 mg/dl HIGH >190 mg/dl VERY HIGH Performed By: #### U MAXI, LIPID, MG, CMP, DBIL, PHOS #### [facility] [address] [address] [address] Sarmad Patino Triglyceride [Mass/Vol] 112 mg/dL Normal <=150 [facility] Comment on above: Performed By: #### U MAXI, LIPID, MG, CMP, DBIL, PHOS #### [facility] [address] [address] [address] Sarmad Patino VLDL CALC 22.4 mg/dL Normal [facility] Comment on above: Performed By: #### U MAXI, LIPID, MG, CMP, DBIL, PHOS #### [facility] [address] [address] [address] Sarmad Patino MAGNESIUMon 04-08-2022 Magnesium [Mass/Vol] 1.8 mg/dL Normal 1.8-2.4 [facility] Comment on above: Performed By: #### U MAXI, LIPID, MG, CMP, DBIL, PHOS #### [facility] [address] [address] [address] Sarmad Patino PHOSPHORUSon 04-08-2022 Phosphate [Mass/Vol] 3.9 mg/dL Normal 2.6-4.7 [facility] Comment on above: Performed By: #### U MAXI, LIPID, MG, CMP, DBIL, PHOS #### [facility] [address] [place] [address] Dr. Sarmad Patino PROF 14(COMP METB)on 023 Albumin [Mass/Vol] 4.0 g/dL Normal 3.4-5.0 [facility] Comment on above: Performed By: #### U MAXI, LIPID, MG, CMP, DBIL, PHOS #### [facility] [address] [place] [address] Dr. Sarmad Patino Albumin/Globulin [Mass ratio] 1.3 {ratio} Normal [facility] Comment on above: Performed By: #### U MAXI, LIPID, MG, CMP, DBIL, PHOS #### [facility] [address] [place] [address] Dr. Sarmad Patino ALP [Catalytic activity/Vol] 108 U/L Normal 46-116 [facility] Comment on above: Performed By: #### U MAXI, LIPID, MG, CMP, DBIL, PHOS #### [facility] [address] [place] [address] Dr. Sarmad Patino ALT [Catalytic activity/Vol] 15 U/L Normal 14-59 [facility] Comment on above: Performed By: #### U MAXI, LIPID, MG, CMP, DBIL, PHOS #### [facility] [address] [place] [address] Dr. Sarmad Patino Anion gap [Moles/Vol] 14.3 mmol/L Normal [facility] Comment on above: Performed By: #### U MAXI, LIPID, MG, CMP, DBIL, PHOS #### [facility] [address] [place] [address] Dr. Sarmad Patino AST [Catalytic activity/Vol] 15 U/L Normal 15-37 [facility] Comment on above: Performed By: #### U MAXI, LIPID, MG, CMP, DBIL, PHOS #### [facility] [address] [place] [address] Dr. Sarmad Patino Bilirubin [Mass/Vol] 0.5 mg/dL Normal 0.2-1.0 [facility] Comment on above: Performed By: #### U MAXI, LIPID, MG, CMP, DBIL, PHOS #### [facility] [address] [address] [address] Sarmad Patino Calcium [Mass/Vol] 9.7 mg/dL Normal 8.5-10.1 [facility] Comment on above: Performed By: #### U MAXI, LIPID, MG, CMP, DBIL, PHOS #### [facility] [address] [address] [address] Sarmad Patino Chloride [Moles/Vol] 105 mmol/L Normal 98-107 [facility] Comment on above: Performed By: #### U MAXI, LIPID, MG, CMP, DBIL, PHOS #### [facility] [address] [place] [address] Dr. Sarmad Patino CO2 [Moles/Vol] 26.6 mmol/L Normal 21.0-32.0 [facility] Comment on above: Performed By: #### U MAXI, LIPID, MG, CMP, DBIL, PHOS #### [facility] [address] [place] [address] Dr. Sarmad Patino Creatinine [Mass/Vol] 0.80 mg/dL Normal 0.55-1.02 [facility] Comment on above: Performed By: #### U MAXI, LIPID, MG, CMP, DBIL, PHOS #### [facility] [address] [place] [address] Dr. Sarmad Patino EGFR-AF [place]IZ[place] >60 Normal >=60 [facility] Comment on above: Performed By: #### U MAXI, LIPID, MG, CMP, DBIL, PHOS #### [facility] [address] [address] [address] Sarmad Patino EGFR-NON AF [place] CITIZ[place] >60 Normal >=60 [facility] Comment on above: Performed By: #### U MAXI, LIPID, MG, CMP, DBIL, PHOS #### [facility] [address] [place] [address] Dr. Sarmad Patino Globulin (S) [Mass/Vol] 3.0 g/dL Normal [facility] Comment on above: Performed By: #### U MAXI, LIPID, MG, CMP, DBIL, PHOS #### [facility] [address] [address] [address] Sarmad Patino Glucose [Mass/Vol] 99 mg/dL Normal 74-106 [facility] Comment on above: Performed By: #### U MAXI, LIPID, MG, CMP, DBIL, PHOS #### [facility] [address] [place] [address] Dr. Sarmad Patino Potassium [Moles/Vol] 3.9 mmol/L Normal 3.5-5.1 [facility] Comment on above: Performed By: #### U MAXI, LIPID, MG, CMP, DBIL, PHOS #### [facility] [address] [place] [address] Dr. Sarmad Patino Protein [Mass/Vol] 7.0 g/dL Normal 6.4-8.2 [facility] Comment on above: Performed By: #### U MAXI, LIPID, MG, CMP, DBIL, PHOS #### [facility] [address] [place] [address] Dr. Sarmad Patino Sodium [Moles/Vol] 142 mmol/L Normal 136-145 [facility] Comment on above: Performed By: #### U MAXI, LIPID, MG, CMP, DBIL, PHOS #### [facility] [address] [place] [address] Dr. Sarmad Patino Urea nitrogen [Mass/Vol] 14.0 mg/dL Normal 7.0-18.0 [facility] Comment on above: Performed By: #### U MAXI, LIPID, MG, CMP, DBIL, PHOS #### [facility] [address] [place] [address] Dr. Sarmad Patino Urea nitrogen/Creatinine [Mass ratio] 17.5 mg/mg Normal [facility] Comment on above: Performed By: #### U MAXI, LIPID, MG, CMP, DBIL, PHOS #### [facility] [address] [place] [address] Dr. Sarmad Patino URIC ACID SERUMon 04-08-2022 Urate [Mass/Vol] 5.2 mg/dL Normal 2.6-6.0 [facility] Comment on above: Performed By: #### U MAXI, LIPID, MG, CMP, DBIL, PHOS #### [facility] [address] [address] [address] Sarmad Patino Follow-Upon 03-19-2022 Follow-Up [id number] Tanika Grimm 1955 F Date Provider Department Center 03/19/2022 124-VIRGIL HAYNES None No family history on file Level of Service:94236 [facility] OFFICE/OUTPATIENT ESTABLISHED LOW MDM 20-29 MIN Reason for Visit and Comments: Kidney Follow-up [[id number]] - Patient has been having medication changes over the last 3 months has experienced itching and cold sores. Patient also was diagnosed with covid during all the medication changes in November. Normal [facility] BK VIRUS PCR QUANTon 022 BKV DNA QUANT PCR PLASMA Negative Normal Negative [facility] Comment on above: Result Comment: No B K DNA detected. . The linear range of the assay is 22 - 100,000,000 IU/mL. Performed By: #### D DAVIDSON, MG, PHOS, CMP, LIPID, URIC #### [facility] [address] [place] [address] Dr. Sarmad Patino Log10 BKV DNA Plasma Normal [facility] Comment on above: Performed By: #### D DAVIDSON, MG, PHOS, CMP, LIPID, URIC #### [facility] [address] [address] [address] Sarmad Patino FK506 (TACROLIMUS) WHOLE BLO ODon 03-13-2022 Tacrolimus (FK506), Blood 5.0 ng/mL Normal 2.0-20.0 [facility] Comment on above: Result Comment: Trou gh (immediately following transplant) 15.0 . Trough (steady state, 2 weeks or more after transplant): 3.0 - 8.0 . Performed by LC-MS/MS technology. Performed By: #### D DAVIDSON, MG, PHOS, CMP, LIPID, URIC #### [facility] [address] [address] [address] Sarmad Patino GLYCOHEMOGLOBIN A1Con 2021 ADA RECOMMENDATION SEE BELOW Normal [facility] Comment on above: Result Comment: ADA RECOMMENDED LIMIT 4.0 - 6.0 ADA THERAPEUTIC TARGET < 7.0 ACTION SUGGESTED > 7.0 Performed By: #### D DAVIDSON, MG, PHOS, CMP, LIPID, URIC #### [facility] [address] [address] [address] Sarmad Patino Glucose [Mass/Vol] 111 mg/dL Normal [facility] Comment on above: Performed By: #### D DAVIDSON, MG, PHOS, CMP, LIPID, URIC #### [facility] [address] [address] [address] Sarmad Patino HbA1c (Bld) [Mass fraction] 5.5 % Normal 4.5-6.2 [facility] Comment on above: Performed By: #### D DAVIDSON, MG, PHOS, CMP, LIPID, URIC #### [facility] [address] [place] [address] Dr. Sarmad Patino LIVER PROFILEon 03-11-2022 Albumin [Mass/Vol] 3.7 g/dL Normal 3.4-5.0 [facility] Comment on above: Performed By: #### D DAVIDSON, MG, PHOS, CMP, LIPID, URIC #### [facility] [address] [address] [address] Sarmad Patino Albumin/Globulin [Mass ratio] 1.1 {ratio} Normal [facility] Comment on above: Performed By: #### D DAVIDSON, MG, PHOS, CMP, LIPID, URIC #### [facility] [address] [address] [address] Sarmad Patino ALP [Catalytic activity/Vol] 124 U/L Critically high 46-116 [facility] Comment on above: Performed By: #### D DAVIDSON, MG, PHOS, CMP, LIPID, URIC #### [facility] [address] [address] [address] Sarmad Patino ALT [Catalytic activity/Vol] 17 U/L Normal 14-59 [facility] Comment on above: Performed By: #### D DAVIDSON, MG, PHOS, CMP, LIPID, URIC #### [facility] [address] [place] [address] Dr. Sarmad Patino AST [Catalytic activity/Vol] 16 U/L Normal 15-37 [facility] Comment on above: Performed By: #### D DAVIDSON, MG, PHOS, CMP, LIPID, URIC #### [facility] [address] [place] [address] Dr. Sarmad Patino BILI, CONJUGATED 0.2 mg/dL Normal 0.0-0.2 [facility] Comment on above: Performed By: #### D DAVIDSON, MG, PHOS, CMP, LIPID, URIC #### [facility] [address] [place] [address] Dr. Sarmad Patino Bilirubin [Mass/Vol] 0.6 mg/dL Normal 0.2-1.0 [facility] Comment on above: Performed By: #### D DAVIDSON, MG, PHOS, CMP, LIPID, URIC #### [facility] [address] [place] [address] Dr. Sarmad Patino Globulin (S) [Mass/Vol] 3.4 g/dL Normal [facility] Comment on above: Performed By: #### D DAVIDSON, MG, PHOS, CMP, LIPID, URIC #### [facility] [address] [place] [address] Dr. Sarmad Patino Protein [Mass/Vol] 7.1 g/dL Normal 6.4-8.2 [facility] Comment on above: Performed By: #### D DAVIDSON, MG, PHOS, CMP, LIPID, URIC #### [facility] [address] [place] [address] Dr. Sarmad Patino MAGNESIUMon 03-11-2022 Magnesium [Mass/Vol] 1.6 mg/dL Critically low 1.8-2.4 [facility] Comment on above: Performed By: #### D DAVIDSON, MG, PHOS, CMP, LIPID, URIC #### [facility] [address] [place] [address] Dr. Sarmad Patino PHOSPHORUSon 03-11-2022 Phosphate [Mass/Vol] 3.5 mg/dL Normal 2.6-4.7 [facility] Comment on above: Performed By: #### D DAVIDSON, MG, PHOS, CMP, LIPID, URIC #### [facility] [address] [address] [address] Sarmad Patino URIC ACID SERUMon 03-11-2022 Urate [Mass/Vol] 5.3 mg/dL Normal 2.6-6.0 [facility] Comment on above: Performed By: #### D DAVIDSON, MG, PHOS, CMP, LIPID, URIC #### [facility] [address] [address] [address] Sarmad Patino MYCOPHENOLIC ACIDon 02-19-20 Mycophenolic Acid 1.5 ug/mL Normal 1.0-3.5 [facility] Comment on above: Performed By: #### D DAVIDSON, MG, PHOS, CMP, LIPID, URIC #### [facility] [address] [address] [address] Sarmad Patino Mycophenolic Acid Glucuronide 32 ug/mL Normal 15-125 [facility] Comment on above: Result Comment: [facility] 's Reference Range: 35-100 mcg/mL. Performed By: #### D DAVIDSON, MG, PHOS, CMP, LIPID, URIC #### [facility] [address] [address] [address] Sarmad Patino BK VIRUS PCR QUANTon 022 BKV DNA QUANT PCR PLASMA Negative Normal Negative [facility] Comment on above: Result Comment: No B K DNA detected. . The linear range of the assay is 22 - 100,000,000 IU/mL. Performed By: #### D DAVIDSON, MG, PHOS, CMP, LIPID, URIC #### [facility] [address] [address] [address] Sarmad Patino Log10 BKV DNA Plasma Normal [facility] Comment on above: Performed By: #### D DAVIDSON, MG, PHOS, CMP, LIPID, URIC #### [facility] [address] [place] [address] Dr. Sarmad Patino FK506 (TACROLIMUS) WHOLE BLO ODon 02-11-2022 Tacrolimus (FK506), Blood 4.4 ng/mL Normal 2.0-20.0 [facility] Comment on above: Result Comment: Trou gh (immediately following transplant) 15.0 . Trough (steady state, 2 weeks or more after transplant): 3.0 - 8.0 . Performed by LC-MS/MS technology. Performed By: #### U MAXI, LIPID, MG, CMP, DBIL, PHOS #### [facility] [address] [place] [address] Dr. Sarmad Patino BILIRUBIN CONJUGATED (DIRECT )on 02-08-2022 BILI, CONJUGATED 0.1 mg/dL Normal 0.0-0.2 [facility] Comment on above: Performed By: #### D DAVIDSON, MG, PHOS, CMP, LIPID, URIC #### [facility] [address] [place] [address] Dr. Sarmad Patino CBC AUTO DIFFon 02-08-2022 BASO # 0.0 103/ul Normal 0.0-0.1 [facility] Comment on above: Performed By: #### D DAVIDSON, MG, PHOS, CMP, LIPID, URIC #### [facility] [address] [place] [address] Dr. Sarmad Patino Basophils/100 WBC (Bld) 0.3 % Normal 0.2-2.0 [facility] Comment on above: Performed By: #### D DAVIDSON, MG, PHOS, CMP, LIPID, URIC #### [facility] [address] [place] [address] Dr. Sarmad Patino EO # 0.1 103/ul Normal 0.0-0.7 [facility] Comment on above: Performed By: #### D DAVIDSON, MG, PHOS, CMP, LIPID, URIC #### [facility] [address] [place] [address] Dr. Sarmad Patino Eosinophils/100 WBC (Bld) 1.0 % Normal 0.9-7.0 [facility] Comment on above: Performed By: #### D DAVIDSON, MG, PHOS, CMP, LIPID, URIC #### [facility] [address] [place] [address] Dr. Sarmad Patino Erythrocyte distribution width (RBC) [Ratio] 15.9 % Critically high 11.0-15.0 [facility] Comment on above: Performed By: #### D DAVIDSON, MG, PHOS, CMP, LIPID, URIC #### [facility] [address] [place] [address] Dr. Sarmad Patino Hematocrit (Bld) [Volume fraction] 42.2 % Normal 36.0-48.0 [facility] Comment on above: Performed By: #### D DAVIDSON, MG, PHOS, CMP, LIPID, URIC #### [facility] [address] [place] [address] Dr. Sarmad Patino Hemoglobin (Bld) [Mass/Vol] 13.8 g/dL Normal 12.0-16.0 [facility] Comment on above: Performed By: #### D DAVIDSON, MG, PHOS, CMP, LIPID, URIC #### [facility] [address] [place] [address] Dr. Sarmad Patino IG # 0.10 10e3/ul Critically high 0.00-0.03 [facility] Comment on above: Performed By: #### D DAVIDSON, MG, PHOS, CMP, LIPID, URIC #### [facility] [address] [place] [address] Dr. Sarmad Patino IG % 1.1 % Critically high 0.0-0.5 [facility] Comment on above: Performed By: #### D DAVIDSON, MG, PHOS, CMP, LIPID, URIC #### [facility] [address] [place] [address] Dr. Sarmad Patino LYMPH # 1.2 103/ul Normal 1.2-3.8 [facility] Comment on above: Performed By: #### D DAVIDSON, MG, PHOS, CMP, LIPID, URIC #### [facility] [address] [place] [address] Dr. Sarmad Patino Lymphocytes/100 WBC (Bld) 12.6 % Critically low 20.5-60.0 [facility] Comment on above: Performed By: #### D DAVIDSON, MG, PHOS, CMP, LIPID, URIC #### [facility] [address] [place] [address] Dr. Sarmad Patino MANUAL DIFF REQ NO Normal [facility] Comment on above: Performed By: #### D DAVIDSON, MG, PHOS, CMP, LIPID, URIC #### [facility] [address] [place] [address] Dr. Sarmad Patino MCH (RBC) [Entitic mass] 28.3 pg Normal 26.7-34.0 [facility] Comment on above: Performed By: #### D DAVIDSON, MG, PHOS, CMP, LIPID, URIC #### [facility] [address] [place] [address] Dr. Sarmad Patino MCHC (RBC) [Mass/Vol] 32.7 g/dL Normal 29.9-35.2 [facility] Comment on above: Performed By: #### D DAVIDSON, MG, PHOS, CMP, LIPID, URIC #### [facility] [address] [place] [address] Dr. Sarmad Patino MCV (RBC) [Entitic vol] 86.7 fL Normal 81.0-99.0 [facility] Comment on above: Performed By: #### D DAVIDSON, MG, PHOS, CMP, LIPID, URIC #### [facility] [address] [place] [address] Dr. Sarmad Patino MONO # 1.0 103/ul Critically high 0.3-0.8 [facility] Comment on above: Performed By: #### D DAVIDSON, MG, PHOS, CMP, LIPID, URIC #### [facility] [address] [place] [address] Dr. Sarmad Patino Monocytes/100 WBC (Bld) 10.7 % Normal 1.7-12.0 [facility] Comment on above: Performed By: #### D DAVIDSON, MG, PHOS, CMP, LIPID, URIC #### [facility] [address] [place] [address] Dr. Sarmad Patino NEUT # 6.9 103/ul Critically high 1.4-6.5 [facility] Comment on above: Performed By: #### D DAVIDSON, MG, PHOS, CMP, LIPID, URIC #### [facility] [address] [place] [address] Dr. Sarmad Patino Neutrophils/100 WBC (Bld) 74.3 % Normal 43.0-75.0 [facility] Comment on above: Performed By: #### D DAVIDSON, MG, PHOS, CMP, LIPID, URIC #### [facility] [address] [address] [address] Sarmad Patino Platelet mean volume (Bld) [Entitic vol] 11.1 fL Normal 9.5-13.5 [facility] Comment on above: Performed By: #### D DAVIDSON, MG, PHOS, CMP, LIPID, URIC #### [facility] [address] [address] [address] Sarmad Patino PLT 307 103/ul Normal 150-450 [facility] Comment on above: Performed By: #### D DAVIDSON, MG, PHOS, CMP, LIPID, URIC #### [facility] [address] [address] [address] Sarmad Patino RBC 4.87 106/ul Normal 4.20-5.40 [facility] Comment on above: Performed By: #### D DAVIDSON, MG, PHOS, CMP, LIPID, URIC #### [facility] [address] [place] [address] Dr. Sarmad Patino WBC 9.3 103/ul Normal 4.0-11.0 [facility] Comment on above: Performed By: #### D DAVIDSON, MG, PHOS, CMP, LIPID, URIC #### [facility] [address] [address] [address] Sarmad Patino GLYCOHEMOGLOBIN A1Con 2021 ADA RECOMMENDATION SEE BELOW Normal [facility] Comment on above: Result Comment: ADA RECOMMENDED LIMIT 4.0 - 6.0 ADA THERAPEUTIC TARGET < 7.0 ACTION SUGGESTED > 7.0 Performed By: #### D DAVIDSON, MG, PHOS, CMP, LIPID, URIC #### [facility] [address] [address] [address] Sarmad Patino Glucose [Mass/Vol] 134 mg/dL Normal [facility] Comment on above: Performed By: #### D DAVIDSON, MG, PHOS, CMP, LIPID, URIC #### [facility] [address] [address] [address] Sarmad Patino HbA1c (Bld) [Mass fraction] 6.3 % Critically high 4.5-6.2 [facility] Comment on above: Performed By: #### D DAVIDSON, MG, PHOS, CMP, LIPID, URIC #### [facility] [address] [address] [address] Sarmad Patino LIPID PROFILEon 02-08-2022 CHOL-HDL RATIO NORM SEE BELOW Normal [facility] Comment on above: Result Comment: 3.3 - 4.4 LOW RISK 4.4 - 7.1 AVERAGE RISK 7.1 - 11.0 MODERATE RISK >11.0 HIGH RISK Performed By: #### D DAVIDSON, MG, PHOS, CMP, LIPID, URIC #### [facility] [address] [address] [address] Sarmad Patino Cholesterol [Mass/Vol] 180 mg/dL Normal <=200 [facility] Comment on above: Performed By: #### D DAVIDSON, MG, PHOS, CMP, LIPID, URIC #### [facility] [address] [address] [address] Sarmad Patino Cholesterol in HDL [Mass/Vol] 58 mg/dL Normal 40-60 [facility] Comment on above: Performed By: #### D DAVIDSON, MG, PHOS, CMP, LIPID, URIC #### [facility] [address] [address] [address] Sarmad Patino Cholesterol in LDL [Mass/Vol] 86.6 mg/dL Normal [facility] Comment on above: Performed By: #### D DAVIDSON, MG, PHOS, CMP, LIPID, URIC #### [facility] [address] [place] [address] Dr. Sarmad Patino Cholesterol.total/C holesterol in HDL [Mass ratio] 3.1 {ratio} Normal [facility] Comment on above: Performed By: #### D DAVIDSON, MG, PHOS, CMP, LIPID, URIC #### [facility] [address] [place] [address] Dr. Sarmad Patino HDL NORMAL > or = 60 mg/dl - LO W CARDIOVASCULAR RISK <40 mg/dl - HIGH CARDIOVASCULAR RISK Normal [facility] Comment on above: Performed By: #### D DAVIDSON, MG, PHOS, CMP, LIPID, URIC #### [facility] [address] [address] [address] Sarmad Patino LDL CALC NORMAL SEE BELOW Normal [facility] Comment on above: Result Comment: <100 mg/dl OPTIMAL 100 - 129 mg/dl NEAR OR ABOVE OPTIMAL 130 - 159 mg/dl BORDERLINE HIGH 160 - 189 mg/dl HIGH >190 mg/dl VERY HIGH Performed By: #### D DAVIDSON, MG, PHOS, CMP, LIPID, URIC #### [facility] [address] [address] [address] Sarmad Patino Triglyceride [Mass/Vol] 177 mg/dL Critically high <=150 [facility] Comment on above: Performed By: #### D DAVIDSON, MG, PHOS, CMP, LIPID, URIC #### [facility] [address] [place] [address] Dr. Sarmad Patino VLDL CALC 35.4 mg/dL Normal [facility] Comment on above: Performed By: #### D DAVIDSON, MG, PHOS, CMP, LIPID, URIC #### [facility] [address] [place] [address] Dr. Sarmad Patino MAGNESIUMon 02-08-2022 Magnesium [Mass/Vol] 1.8 mg/dL Normal 1.8-2.4 [facility] Comment on above: Performed By: #### D DAVIDSON, MG, PHOS, CMP, LIPID, URIC #### [facility] [address] [place] [address] Dr. Sarmad Patino PHOSPHORUSon 02-08-2022 Phosphate [Mass/Vol] 3.3 mg/dL Normal 2.6-4.7 [facility] Comment on above: Performed By: #### D DAVIDSON, MG, PHOS, CMP, LIPID, URIC #### [facility] [address] [place] [address] Dr. Sarmad Patino PROF 14(COMP METB)on 022 Albumin [Mass/Vol] 3.8 g/dL Normal 3.4-5.0 [facility] Comment on above: Performed By: #### D DAVIDSON, MG, PHOS, CMP, LIPID, URIC #### [facility] [address] [address] [address] Sarmad Patino Albumin/Globulin [Mass ratio] 1.3 {ratio} Normal [facility] Comment on above: Performed By: #### D DAVIDSON, MG, PHOS, CMP, LIPID, URIC #### [facility] [address] [address] [address] Sarmad Patino ALP [Catalytic activity/Vol] 144 U/L Critically high 46-116 [facility] Comment on above: Performed By: #### D DAVIDSON, MG, PHOS, CMP, LIPID, URIC #### [facility] [address] [place] [address] Dr. Sarmad Patino ALT [Catalytic activity/Vol] 24 U/L Normal 14-59 [facility] Comment on above: Performed By: #### D DAVIDSON, MG, PHOS, CMP, LIPID, URIC #### [facility] [address] [place] [address] Dr. Sarmad Patino Anion gap [Moles/Vol] 13.7 mmol/L Normal [facility] Comment on above: Performed By: #### D DAVIDSON, MG, PHOS, CMP, LIPID, URIC #### [facility] [address] [place] [address] Dr. Sarmad Patino AST [Catalytic activity/Vol] 19 U/L Normal 15-37 [facility] Comment on above: Performed By: #### D DAVIDSON, MG, PHOS, CMP, LIPID, URIC #### [facility] [address] [place] [address] Dr. Sarmad Patino Bilirubin [Mass/Vol] 0.5 mg/dL Normal 0.2-1.0 [facility] Comment on above: Performed By: #### D DAVIDSON, MG, PHOS, CMP, LIPID, URIC #### [facility] [address] [place] [address] Dr. Sarmad Patino Calcium [Mass/Vol] 9.6 mg/dL Normal 8.5-10.1 [facility] Comment on above: Performed By: #### D DAVIDSON, MG, PHOS, CMP, LIPID, URIC #### [facility] [address] [address] [address] Sarmad Patino Chloride [Moles/Vol] 103 mmol/L Normal 98-107 [facility] Comment on above: Performed By: #### D DAVIDSON, MG, PHOS, CMP, LIPID, URIC #### [facility] [address] [address] [address] Sarmad Patino CO2 [Moles/Vol] 26.6 mmol/L Normal 21.0-32.0 [facility] Comment on above: Performed By: #### D DAVIDSON, MG, PHOS, CMP, LIPID, URIC #### [facility] [address] [address] [address] Sarmad Patino Creatinine [Mass/Vol] 0.75 mg/dL Normal 0.55-1.02 [facility] Comment on above: Performed By: #### D DAVIDSON, MG, PHOS, CMP, LIPID, URIC #### [facility] [address] [place] [address] Dr. Sarmad Patino EGFR-AF [place]IZ[place] >60 Normal >=60 [facility] Comment on above: Performed By: #### D DAVIDSON, MG, PHOS, CMP, LIPID, URIC #### [facility] [address] [place] [address] Dr. Sarmad Patino EGFR-NON AF [place]IZ[place] >60 Normal >=60 [facility] Comment on above: Performed By: #### D DAVIDSON, MG, PHOS, CMP, LIPID, URIC #### [facility] [address] [place] [address] Dr. Sarmad Patino Globulin (S) [Mass/Vol] 3.0 g/dL Normal [facility] Comment on above: Performed By: #### D DAVIDSON, MG, PHOS, CMP, LIPID, URIC #### [facility] [address] [place] [address] Dr. Sarmad Patino Glucose [Mass/Vol] 99 mg/dL Normal 74-106 [facility] Comment on above: Performed By: #### D DAVIDSON, MG, PHOS, CMP, LIPID, URIC #### [facility] [address] [place] [address] Dr. Sarmad Patino Potassium [Moles/Vol] 4.3 mmol/L Normal 3.5-5.1 [facility] Comment on above: Performed By: #### D DAVIDSON, MG, PHOS, CMP, LIPID, URIC #### [facility] [address] [place] [address] Dr. Sarmad Patino Protein [Mass/Vol] 6.8 g/dL Normal 6.4-8.2 [facility] Comment on above: Performed By: #### D DAVIDSON, MG, PHOS, CMP, LIPID, URIC #### [facility] [address] [place] [address] Dr. Sarmad Patino Sodium [Moles/Vol] 139 mmol/L Normal 136-145 [facility] Comment on above: Performed By: #### D DAVIDSON, MG, PHOS, CMP, LIPID, URIC #### [facility] [address] [place] [address] Dr. Sarmad Patino Urea nitrogen [Mass/Vol] 16.0 mg/dL Normal 7.0-18.0 [facility] Comment on above: Performed By: #### D DAVIDSON, MG, PHOS, CMP, LIPID, URIC #### [facility] [address] [place] [address] Dr. Sarmad Patino Urea nitrogen/Creatinine [Mass ratio] 21.3 mg/mg Normal [facility] Comment on above: Performed By: #### D DAVIDSON, MG, PHOS, CMP, LIPID, URIC #### [facility] [address] [place] [address] Dr. Sarmad Patino URIC ACID SERUMon 02-08-2022 Urate [Mass/Vol] 5.4 mg/dL Normal 2.6-6.0 [facility] Comment on above: Performed By: #### D DAVIDSON, MG, PHOS, CMP, LIPID, URIC #### [facility] [address] [place] [address] Dr. Sarmad Patino BK VIRUS PCR QUANTon 022 BKV DNA QUANT PCR PLASMA 27 IU/mL Normal Negative [facility] Comment on above: Result Comment: The linear range of the assay is 22 - 100,000,000 IU/mL. Performed By: #### D DAVIDSON, MG, PHOS, CMP, LIPID, URIC #### [facility] [address] [place] [address] Dr. Sarmad Patino Log10 BKV DNA Plasma 1.431 log10 IU/mL Normal [facility] Comment on above: Performed By: #### D DAVIDSON, MG, PHOS, CMP, LIPID, URIC #### [facility] [address] [place] [address] Dr. Sarmad Patino FK506 (TACROLIMUS) WHOLE BLO ODon 01-30-2022 Tacrolimus (FK506), Blood 6.5 ng/mL Normal 2.0-20.0 [facility] Comment on above: Result Comment: Trou gh (immediately following transplant) 15.0 . Trough (steady state, 2 weeks or more after transplant): 3.0 - 8.0 . Performed by LC-MS/MS technology. Performed By: #### D DAVIDSON, MG, PHOS, CMP, LIPID, URIC #### [facility] [address] [place] [address] Dr. Sarmad Patnio RAPAMUNE(SIROLIMUS)on 2021 Rapamune(Sirolimus) , whole blood 9.9 ng/mL Normal 3.0-20.0 [facility] Comment on above: Result Comment: Perf ormed by LC/MS-MS technology . This test was developed and its performance characteristics determined by [facility]. It has not been cleared or approved by the Food and Drug Administration. Performed By: #### D DAVIDSON, MG, PHOS, CMP, LIPID, URIC #### [facility] [address] [place] [address] Dr. Sarmad Patino BILIRUBIN CONJUGATED (DIRECT )on 01-28-2022 BILI, CONJUGATED 0.1 mg/dL Normal 0.0-0.2 [facility] Comment on above: Performed By: #### D DAVIDSON, MG, PHOS, CMP, LIPID, URIC #### [facility] [address] [place] [address] Dr. Sarmad Patino CBC AUTO DIFFon 01-28-2022 BASO # 0.0 103/ul Normal 0.0-0.1 [facility] Comment on above: Performed By: #### D DAVIDSON, MG, PHOS, CMP, LIPID, URIC #### [facility] [address] [place] [address] Dr. Sarmad Patino Basophils/100 WBC (Bld) 0.3 % Normal 0.2-2.0 [facility] Comment on above: Performed By: #### D DAVIDSON, MG, PHOS, CMP, LIPID, URIC #### [facility] [address] [place] [address] Dr. Sarmad Patino EO # 0.2 103/ul Normal 0.0-0.7 [facility] Comment on above: Performed By: #### D DAVIDSON, MG, PHOS, CMP, LIPID, URIC #### [facility] [address] [place] [address] Dr. Sarmad Patino Eosinophils/100 WBC (Bld) 3.1 % Normal 0.9-7.0 [facility] Comment on above: Performed By: #### D DAVIDSON, MG, PHOS, CMP, LIPID, URIC #### [facility] [address] [place] [address] Dr. Sarmad Patino Erythrocyte distribution width (RBC) [Ratio] 15.4 % Critically high 11.0-15.0 [facility] Comment on above: Performed By: #### D DAVIDSON, MG, PHOS, CMP, LIPID, URIC #### [facility] [address] [place] [address] Dr. Sarmad Patino Hematocrit (Bld) [Volume fraction] 42.6 % Normal 36.0-48.0 [facility] Comment on above: Performed By: #### D DAVIDSON, MG, PHOS, CMP, LIPID, URIC #### [facility] [address] [place] [address] Dr. Sarmad Patino Hemoglobin (Bld) [Mass/Vol] 14.0 g/dL Normal 12.0-16.0 [facility] Comment on above: Performed By: #### D DAVIDSON, MG, PHOS, CMP, LIPID, URIC #### [facility] [address] [place] [address] Dr. Sarmad Patino IG # 0.05 10e3/ul Critically high 0.00-0.03 [facility] Comment on above: Performed By: #### D DAVIDSON, MG, PHOS, CMP, LIPID, URIC #### [facility] [address] [address] [address] Sarmad Patino IG % 0.7 % Critically high 0.0-0.5 [facility] Comment on above: Performed By: #### D DAVIDSON, MG, PHOS, CMP, LIPID, URIC #### [facility] [address] [address] [address] Sarmad Patino LYMPH # 1.1 103/ul Critically low 1.2-3.8 [facility] Comment on above: Performed By: #### D DAVIDSON, MG, PHOS, CMP, LIPID, URIC #### [facility] [address] [place] [address] Dr. Sarmad Patino Lymphocytes/100 WBC (Bld) 15.8 % Critically low 20.5-60.0 [facility] Comment on above: Performed By: #### D DAVIDSON, MG, PHOS, CMP, LIPID, URIC #### [facility] [address] [place] [address] Dr. Sarmad Patino MANUAL DIFF REQ NO Normal [facility] Comment on above: Performed By: #### D DAVIDSON, MG, PHOS, CMP, LIPID, URIC #### [facility] [address] [place] [address] Dr. Sarmad Patino MCH (RBC) [Entitic mass] 28.3 pg Normal 26.7-34.0 [facility] Comment on above: Performed By: #### D DAVIDSON, MG, PHOS, CMP, LIPID, URIC #### [facility] [address] [address] [address] Sarmad Patino MCHC (RBC) [Mass/Vol] 32.9 g/dL Normal 29.9-35.2 [facility] Comment on above: Performed By: #### D DAVIDSON, MG, PHOS, CMP, LIPID, URIC #### [facility] [address] [place] [address] Dr. Sarmad Patino MCV (RBC) [Entitic vol] 86.2 fL Normal 81.0-99.0 [facility] Comment on above: Performed By: #### D DAVIDSON, MG, PHOS, CMP, LIPID, URIC #### [facility] [address] [place] [address] Dr. Sarmad Patino MONO # 0.8 103/ul Normal 0.3-0.8 [facility] Comment on above: Performed By: #### D DAVIDSON, MG, PHOS, CMP, LIPID, URIC #### [facility] [address] [place] [address] Dr. Sarmad Patino Monocytes/100 WBC (Bld) 11.0 % Normal 1.7-12.0 [facility] Comment on above: Performed By: #### D DAVIDSON, MG, PHOS, CMP, LIPID, URIC #### [facility] [address] [place] [address] Dr. Sarmad Patino NEUT # 4.8 103/ul Normal 1.4-6.5 [facility] Comment on above: Performed By: #### D DAVIDSON, MG, PHOS, CMP, LIPID, URIC #### [facility] [address] [place] [address] Dr. Sarmad Patino Neutrophils/100 WBC (Bld) 69.1 % Normal 43.0-75.0 [facility] Comment on above: Performed By: #### D DAVIDSON, MG, PHOS, CMP, LIPID, URIC #### [facility] [address] [place] [address] Dr. Sarmad Patino Platelet mean volume (Bld) [Entitic vol] 10.8 fL Normal 9.5-13.5 [facility] Comment on above: Performed By: #### D DAVIDSON, MG, PHOS, CMP, LIPID, URIC #### [facility] [address] [place] [address] Dr. Sarmad Patino PLT 208 103/ul Normal 150-450 [facility] Comment on above: Performed By: #### D DAVIDSON, MG, PHOS, CMP, LIPID, URIC #### [facility] [address] [place] [address] Dr. Sarmad Patino RBC 4.94 106/ul Normal 4.20-5.40 [facility] Comment on above: Performed By: #### D DAVIDSON, MG, PHOS, CMP, LIPID, URIC #### [facility] [address] [address] [address] Sarmad Patino WBC 7.0 103/ul Normal 4.0-11.0 [facility] Comment on above: Performed By: #### D DAVIDSON, MG, PHOS, CMP, LIPID, URIC #### [facility] [address] [place] [address] Dr. Sarmad Patino GLYCOHEMOGLOBIN A1Con 2021 ADA RECOMMENDATION SEE BELOW Normal [facility] Comment on above: Result Comment: ADA RECOMMENDED LIMIT 4.0 - 6.0 ADA THERAPEUTIC TARGET < 7.0 ACTION SUGGESTED > 7.0 Performed By: #### D DAVIDSON, MG, PHOS, CMP, LIPID, URIC #### [facility] [address] [place] [address] Dr. Sarmad Patino Glucose [Mass/Vol] 137 mg/dL Normal [facility] Comment on above: Performed By: #### D DAVIDSON, MG, PHOS, CMP, LIPID, URIC #### [facility] [address] [place] [address] Dr. Sarmad Patino HbA1c (Bld) [Mass fraction] 6.4 % Critically high 4.5-6.2 [facility] Comment on above: Performed By: #### D DAVIDSON, MG, PHOS, CMP, LIPID, URIC #### [facility] [address] [place] [address] Dr. Sarmad Patino LIPID PROFILEon 01-28-2022 CHOL-HDL RATIO NORM SEE BELOW Normal [facility] Comment on above: Result Comment: 3.3 - 4.4 LOW RISK 4.4 - 7.1 AVERAGE RISK 7.1 - 11.0 MODERATE RISK >11.0 HIGH RISK Performed By: #### D DAVIDSON, MG, PHOS, CMP, LIPID, URIC #### [facility] [address] [place] [address] Dr. Sarmad Patino Cholesterol [Mass/Vol] 209 mg/dL Critically high <=200 [facility] Comment on above: Performed By: #### D DAVIDSON, MG, PHOS, CMP, LIPID, URIC #### [facility] [address] [address] [address] Sarmad Patino Cholesterol in HDL [Mass/Vol] 59 mg/dL Normal 40-60 [facility] Comment on above: Performed By: #### D DAVIDSON, MG, PHOS, CMP, LIPID, URIC #### [facility] [address] [address] [address] Sarmad Patino Cholesterol in LDL [Mass/Vol] 100.4 mg/dL Normal [facility] Comment on above: Performed By: #### D DAVIDSON, MG, PHOS, CMP, LIPID, URIC #### [facility] [address] [place] [address] Dr. Sarmad Patino Cholesterol.total/C holesterol in HDL [Mass ratio] 3.5 {ratio} Normal [facility] Comment on above: Performed By: #### D DAVIDSON, MG, PHOS, CMP, LIPID, URIC #### [facility] [address] [address] [address] Sarmad Patino HDL NORMAL > or = 60 mg/dl - LO W CARDIOVASCULAR RISK <40 mg/dl - HIGH CARDIOVASCULAR RISK Normal [facility] Comment on above: Performed By: #### D DAVIDSON, MG, PHOS, CMP, LIPID, URIC #### [facility] [address] [address] [address] Sarmad Patino LDL CALC NORMAL SEE BELOW Normal [facility] Comment on above: Result Comment: <100 mg/dl OPTIMAL 100 - 129 mg/dl NEAR OR ABOVE OPTIMAL 130 - 159 mg/dl BORDERLINE HIGH 160 - 189 mg/dl HIGH >190 mg/dl VERY HIGH Performed By: #### D DAVIDSON, MG, PHOS, CMP, LIPID, URIC #### [facility] [address] [address] [address] Sarmad Patino Triglyceride [Mass/Vol] 248 mg/dL Critically high <=150 [facility] Comment on above: Performed By: #### D DAVIDSON, MG, PHOS, CMP, LIPID, URIC #### [facility] [address] [place] [address] Dr. Sarmad Patino VLDL CALC 49.6 mg/dL Normal [facility] Comment on above: Performed By: #### D DAVIDSON, MG, PHOS, CMP, LIPID, URIC #### [facility] [address] [place] [address] Dr. Sarmad Patino MAGNESIUMon 01-28-2022 Magnesium [Mass/Vol] 1.6 mg/dL Critically low 1.8-2.4 [facility] Comment on above: Performed By: #### D DAVIDSON, MG, PHOS, CMP, LIPID, URIC #### [facility] [address] [place] [address] Dr. Sarmad Patino PHOSPHORUSon 01-28-2022 Phosphate [Mass/Vol] 2.7 mg/dL Normal 2.6-4.7 [facility] Comment on above: Performed By: #### D DAVIDSON, MG, PHOS, CMP, LIPID, URIC #### [facility] [address] [place] [address] Dr. Sarmad Patino PROF 14(COMP METB)on 022 Albumin [Mass/Vol] 3.3 g/dL Critically low 3.4-5.0 [facility] Comment on above: Performed By: #### D DAVIDSON, MG, PHOS, CMP, LIPID, URIC #### [facility] [address] [place] [address] Dr. Sarmad Patino Albumin/Globulin [Mass ratio] 0.9 {ratio} Normal [facility] Comment on above: Performed By: #### D DAVIDSON, MG, PHOS, CMP, LIPID, URIC #### [facility] [address] [place] [address] Dr. Sarmad Patino ALP [Catalytic activity/Vol] 124 U/L Critically high 46-116 [facility] Comment on above: Performed By: #### D DAVIDSON, MG, PHOS, CMP, LIPID, URIC #### [facility] [address] [place] [address] Dr. Sarmad Patino ALT [Catalytic activity/Vol] 28 U/L Normal 14-59 [facility] Comment on above: Performed By: #### D DAVIDSON, MG, PHOS, CMP, LIPID, URIC #### [facility] [address] [address] [address] Sarmad Patino Anion gap [Moles/Vol] 12.0 mmol/L Normal [facility] Comment on above: Performed By: #### D DAVIDSON, MG, PHOS, CMP, LIPID, URIC #### [facility] [address] [place] [address] Dr. Sarmad Patino AST [Catalytic activity/Vol] 20 U/L Normal 15-37 [facility] Comment on above: Performed By: #### D DAVIDSON, MG, PHOS, CMP, LIPID, URIC #### [facility] [address] [place] [address] Dr. Sarmda Patino Bilirubin [Mass/Vol] 0.5 mg/dL Normal 0.2-1.0 [facility] Comment on above: Performed By: #### D DAVIDSON, MG, PHOS, CMP, LIPID, URIC #### [facility] [address] [place] [address] Dr. Sarmad Patino Calcium [Mass/Vol] 9.1 mg/dL Normal 8.5-10.1 [facility] Comment on above: Performed By: #### D DAVIDSON, MG, PHOS, CMP, LIPID, URIC #### [facility] [address] [place] [address] Dr. Sarmad Patino Chloride [Moles/Vol] 104 mmol/L Normal 98-107 [facility] Comment on above: Performed By: #### D DAVIDSON, MG, PHOS, CMP, LIPID, URIC #### [facility] [address] [place] [address] Dr. Sarmad Patino CO2 [Moles/Vol] 25.7 mmol/L Normal 21.0-32.0 [facility] Comment on above: Performed By: #### D DAVIDSON, MG, PHOS, CMP, LIPID, URIC #### [facility] [address] [place] [address] Dr. Sarmad Patino Creatinine [Mass/Vol] 0.77 mg/dL Normal 0.55-1.02 [facility] Comment on above: Performed By: #### D DAVIDSON, MG, PHOS, CMP, LIPID, URIC #### [facility] [address] [address] [address] Sarmad Patino EGFR-AF [place] >60 Normal >=60 [facility] Comment on above: Performed By: #### D DAVIDSON, MG, PHOS, CMP, LIPID, URIC #### [facility] [address] [address] [address] Sarmad Patino EGFR-NON AF [place]IZ[place] >60 Normal >=60 [facility] Comment on above: Performed By: #### D DAVIDSON, MG, PHOS, CMP, LIPID, URIC #### [facility] [address] [place] [address] Dr. Sarmad Patino Globulin (S) [Mass/Vol] 3.7 g/dL Normal [facility] Comment on above: Performed By: #### D DAVIDSON, MG, PHOS, CMP, LIPID, URIC #### [facility] [address] [address] [address] Sarmad Patino Glucose [Mass/Vol] 108 mg/dL Critically high 74-106 [facility] Comment on above: Performed By: #### D DAVIDSON, MG, PHOS, CMP, LIPID, URIC #### [facility] [address] [place] [address] Dr. Sarmad Patino Potassium [Moles/Vol] 3.7 mmol/L Normal 3.5-5.1 [facility] Comment on above: Performed By: #### D DAVIDSON, MG, PHOS, CMP, LIPID, URIC #### [facility] [address] [place] [address] Dr. Sarmad Patino Protein [Mass/Vol] 7.0 g/dL Normal 6.4-8.2 [facility] Comment on above: Performed By: #### D DAVIDSON, MG, PHOS, CMP, LIPID, URIC #### [facility] [address] [address] [address] Sarmad Patino Sodium [Moles/Vol] 138 mmol/L Normal 136-145 [facility] Comment on above: Performed By: #### D DAVIDSON, MG, PHOS, CMP, LIPID, URIC #### [facility] [address] [place], [place] [address] Dr. Sarmad Patino Urea nitrogen [Mass/Vol] 15.0 mg/dL Normal 7.0-18.0 [facility] Comment on above: Performed By: #### D DAVIDSON, MG, PHOS, CMP, LIPID, URIC #### [facility] [address] [id number] Sarmad Patino Urea nitrogen/Creatinine [Mass ratio] 19.5 mg/mg Normal [facility] Comment on above: Performed By: #### D DAVIDSON, MG, PHOS, CMP, LIPID, URIC #### [facility] [address] [address] [address] Sarmad Patino URIC ACID SERUMon 01-28-2022 Urate [Mass/Vol] 4.3 mg/dL Normal 2.6-6.0 [facility] Comment on above: Performed By: #### D DAVIDSON, MG, PHOS, CMP, LIPID, URIC #### [facility] [address] [place], [place] [address] Dr. Sarmad Patino Quick Strepon 01-12-2022 S. pyogenes Org specific cx Ql (Throat) Negative [employer] Other Quick Strep [employer] Other XR CHEST 1 Von 01-07-2022 XR [...] BRITTON BERNARD Date: 2022-01-07 15:00 Normal [facility] CBC W MANUAL DIFFon 01-04-20 22 ATYPICAL LYMPH # 1.40 103/ul Normal [facility] Comment on above: Performed By: #### D DAVIDSON, MG, PHOS, CMP, LIPID, URIC #### [facility] [address] [place] [address] Dr. Sarmad Patino ATYPICAL LYMPH % 10 % Normal [facility] Comment on above: Performed By: #### D DAVIDSON, MG, PHOS, CMP, LIPID, URIC #### [facility] [address] [address] [address] Sarmad Patino BAND # 0.6 103/ul Critically high 0.0-0.3 [facility] Comment on above: Performed By: #### D DAVIDSON, MG, PHOS, CMP, LIPID, URIC #### [facility] [address] [place] [address] Dr. Sarmad Patino BAND % 4 % Normal 0-5 [facility] Comment on above: Performed By: #### D DAVIDSON, MG, PHOS, CMP, LIPID, URIC #### [facility] [address] [place] [address] Dr. Sarmad Patino BASOM # 0.00 103/ul Normal 0.00-0.10 [facility] Comment on above: Performed By: #### D DAVIDSON, MG, PHOS, CMP, LIPID, URIC #### [facility] [address] [place] [address] Dr. Sarmad Patino BASOM % 0.0 % Critically low 0.2-2.0 [facility] Comment on above: Performed By: #### D DAVIDSON, MG, PHOS, CMP, LIPID, URIC #### [facility] [address] [address] [address] Sarmad Patino BLAST # Normal [facility] Comment on above: Performed By: #### D DAVIDSON, MG, PHOS, CMP, LIPID, URIC #### [facility] [address] [address] [address] Sarmad Patino BLAST % Normal [facility] Comment on above: Performed By: #### D DAVIDSON, MG, PHOS, CMP, LIPID, URIC #### [facility] [address] [address] [address] Sarmad Patino CORRECTED WBC Normal 4.0-11.0 [facility] Comment on above: Performed By: #### D DAVIDSON, MG, PHOS, CMP, LIPID, URIC #### [facility] [address] [address] [address] Sarmad Patino EOS # 0.14 103/ul Normal 0.00-0.70 [facility] Comment on above: Performed By: #### D DAVIDSON, MG, PHOS, CMP, LIPID, URIC #### [facility] [address] [place] [address] Dr. Sarmad Patino EOS% 1.0 % Normal 0.9-7.0 [facility] Comment on above: Performed By: #### D DAVIDSON, MG, PHOS, CMP, LIPID, URIC #### [facility] [address] [place] [address] Dr. Sarmad Patino HCT 42.8 % Normal 36.0-48.0 [facility] Comment on above: Performed By: #### D DAVIDSON, MG, PHOS, CMP, LIPID, URIC #### [facility] [address] [place] [address] Dr. Sarmad Patino HGB 14.2 g/dl Normal 12.0-16.0 [facility] Comment on above: Performed By: #### D DAVIDSON, MG, PHOS, CMP, LIPID, URIC #### [facility] [address] [place] [address] Dr. Sarmad Patino LYMPHM # 0.00 103/ul Critically low 1.20-3.80 [facility] Comment on above: Performed By: #### D DAVIDSON, MG, PHOS, CMP, LIPID, URIC #### [facility] [address] [place] [address] Dr. Sarmad Patino LYMPHM% 0.0 % Critically low 20.5-60.0 [facility] Comment on above: Performed By: #### D DAVIDSON, MG, PHOS, CMP, LIPID, URIC #### [facility] [address] [place], [place] [id number] Dr. Sarmad Patino MCH 28.8 pg Normal 26.7-34.0 [facility] Comment on above: Performed By: #### D DAVIDSON, MG, PHOS, CMP, LIPID, URIC #### [facility] [address] [place] [address] Dr. Sarmad Patino MCHC 33.2 g/dl Normal 29.9-35.2 [facility] Comment on above: Performed By: #### D DAVIDSON, MG, PHOS, CMP, LIPID, URIC #### [facility] [address] [place] [address] Dr. Sarmad Patino MCV 86.8 fL Normal 81.0-99.0 [facility] Comment on above: Performed By: #### D DAVIDSON, MG, PHOS, CMP, LIPID, URIC #### [facility] [address] [place] [address] Dr. Sarmad Patino METAMYELOCYTE # Normal [facility] Comment on above: Performed By: #### D DAVIDSON, MG, PHOS, CMP, LIPID, URIC #### [facility] [address] [place] [address] Dr. Sarmad Patino METAMYELOCYTE % Normal [facility] Comment on above: Performed By: #### D DAVIDSON, MG, PHOS, CMP, LIPID, URIC #### [facility] [address] [place] [address] Dr. Sarmad Patino MONOM# 0.84 103/ul Critically high 0.30-0.80 [facility] Comment on above: Performed By: #### D DAVIDSON, MG, PHOS, CMP, LIPID, URIC #### [facility] [address] [place] [address] Dr. Sarmad Patino MONOM% 6.0 % Normal 1.7-12.0 [facility] Comment on above: Performed By: #### D DAVIDSON, MG, PHOS, CMP, LIPID, URIC #### [facility] [address] [place] [address] Dr. Sarmad Patino MPV 11.5 fL Normal 9.5-13.5 [facility] Comment on above: Performed By: #### D DAVIDSON, MG, PHOS, CMP, LIPID, URIC #### [facility] [address] [address] [address] Sarmad Patino MYELOCYTE # 0.3 103/ul Normal [facility] Comment on above: Performed By: #### D DAVIDSON, MG, PHOS, CMP, LIPID, URIC #### [facility] [address] [address] [address] Sarmad Patino MYELOCYTE % 2 % Normal [facility] Comment on above: Performed By: #### D DAVIDSON, MG, PHOS, CMP, LIPID, URIC #### [facility] [address] [address] [address] Sarmad Patino NR Normal [facility] Comment on above: Performed By: #### D DAVIDSON, MG, PHOS, CMP, LIPID, URIC #### [facility] [address] [address] [address] Sarmad Patino PLT 180 103/ul Normal 150-450 [facility] Comment on above: Performed By: #### D DAVIDSON, MG, PHOS, CMP, LIPID, URIC #### [facility] [address] [address] [address] Sarmad Patino RBC 4.93 106/ul Normal 4.20-5.40 [facility] Comment on above: Performed By: #### D DAVIDSON, MG, PHOS, CMP, LIPID, URIC #### [facility] [address] [address] [address] Sarmad Patino RDW 13.9 % Normal 11.0-15.0 [facility] Comment on above: Performed By: #### D DAVIDSON, MG, PHOS, CMP, LIPID, URIC #### [facility] [address] [address] [address] Sarmad Patino SEG # 10.78 103/ul Critically high 1.40-6.50 [facility] Comment on above: Performed By: #### D DAVIDSON, MG, PHOS, CMP, LIPID, URIC #### [facility] [address] [address] [address] Sarmad Patino SEG % 77.0 % Critically high 43.0-75.0 [facility] Comment on above: Performed By: #### D DAVIDSON, MG, PHOS, CMP, LIPID, URIC #### [facility] [address] [place], [place] [address] Dr. Sarmad Patino WBC 14.0 103/ul Critically high 4.0-11.0 [facility] Comment on above: Performed By: #### D DAVIDSON, MG, PHOS, CMP, LIPID, URIC #### [facility] [address] [place], [place] [address] NECK [address] W [...] middle ear cavities clear. Skull base intact. Physician Representative spaces normal. Parotid glands normal. Submandibular glands [...] F HOPPER Date: 2022-01-03 10:40 Normal [facility] Covid-19 PCR (CVDTB)on SARS-CoV-2 (COVID-19) RNA MURALI+probe Ql (Unsp spec) Detected Critically abnormal NOT DETECTED [facility] Comment on above: Result Comment: This test is not yet approved or cleared by the [place] FDA. When there are no FDA-approved or cleared tests available, and other criteria are met, FDA can make tests available under an emergency access mechanism called an Emergency Use Authorization (EUA). The EUA for this test is supported by the [place] of Health and Human Service's declaration that [...] DAVIDSON, MG, PHOS, CMP, LIPID, URIC #### [facility] [address] [place] [address] Dr. Sarmad Patino GROUP A STREP CULTUREon S. pyogenes Ag Ql (Unsp spec) Culture Observations: Negative for Group A Streptococcus Normal [facility] Comment on above: Performed By: #### U MAXI, LIPID, MG, CMP, DBIL, PHOS #### [facility] [address] [address] [address] Sarmad Patino INFLUENZA A AND B AGon 01-03 INFLUENZA A AG Negative Normal NEGATIVE SEE COMMENT [facility] Comment on above: Performed By: #### D DAVIDSON, MG, PHOS, CMP, LIPID, URIC #### [facility] [address] [address] [address] Sarmad Patino INFLUENZA B AG Negative Normal NEGATIVE SEE COMMENT [facility] Comment on above: Performed By: #### D DAVIDSON, MG, PHOS, CMP, LIPID, URIC #### [facility] [address] [address] [address] Sarmad Patino INTERNAL CONTROLS Within Normal Limits Normal Wi thin Normal Limits [facility] Comment on above: Performed By: #### D DAVIDSON, MG, PHOS, CMP, LIPID, URIC #### [facility] [address] [place] [address] Dr. Sarmad Patino PROF 14(COMP METB)on 022 Albumin [Mass/Vol] 2.5 g/dL Critically low 3.4-5.0 [facility] Comment on above: Performed By: #### U MAXI, LIPID, MG, CMP, DBIL, PHOS #### [facility] [address] [place] [address] Dr. Sarmad Patino Albumin/Globulin [Mass ratio] 0.5 {ratio} Normal [facility] Comment on above: Performed By: #### U MAXI, LIPID, MG, CMP, DBIL, PHOS #### [facility] [address] [place] [address] Dr. Sarmad Patino ALP [Catalytic activity/Vol] 185 U/L Critically high 46-116 [facility] Comment on above: Performed By: #### U MAXI, LIPID, MG, CMP, DBIL, PHOS #### [facility] [address] [place] [address] Dr. Sarmad Patino ALT [Catalytic activity/Vol] 108 U/L Critically high 14-59 [facility] Comment on above: Performed By: #### U MAXI, LIPID, MG, CMP, DBIL, PHOS #### [facility] [address] [place] [address] Dr. Sarmad Patino Anion gap [Moles/Vol] 8.3 mmol/L Normal [facility] Comment on above: Performed By: #### U MAXI, LIPID, MG, CMP, DBIL, PHOS #### [facility] [address] [place] [address] Dr. Sarmad Patino AST [Catalytic activity/Vol] 59 U/L Critically high 15-37 [facility] Comment on above: Performed By: #### U MAXI, LIPID, MG, CMP, DBIL, PHOS #### [facility] [address] [place] [address] Dr. Sarmad Patino Bilirubin [Mass/Vol] 0.6 mg/dL Normal 0.2-1.0 [facility] Comment on above: Performed By: #### U MAXI, LIPID, MG, CMP, DBIL, PHOS #### [facility] [address] [place] [address] Dr. Sarmad Patino Calcium [Mass/Vol] 9.0 mg/dL Normal 8.5-10.1 [facility] Comment on above: Performed By: #### U MAXI, LIPID, MG, CMP, DBIL, PHOS #### [facility] [address] [address] [address] Sarmad Patino Chloride [Moles/Vol] 100 mmol/L Normal 98-107 [facility] Comment on above: Performed By: #### U MAXI, LIPID, MG, CMP, DBIL, PHOS #### [facility] [address] [place] [address] Dr. Sarmad Patino CO2 [Moles/Vol] 29.0 mmol/L Normal 21.0-32.0 [facility] Comment on above: Performed By: #### U MAXI, LIPID, MG, CMP, DBIL, PHOS #### [facility] [address] [place] [address] Dr. Sarmad Patino Creatinine [Mass/Vol] 1.05 mg/dL Critically high 0.55-1.02 [facility] Comment on above: Performed By: #### U MAXI, LIPID, MG, CMP, DBIL, PHOS #### [facility] [address] [place] [address] Dr. Sarmad Patino EGFR-AF [place] >60 Normal >=60 [facility] Comment on above: Performed By: #### U MAXI, LIPID, MG, CMP, DBIL, PHOS #### [facility] [address] [place] [address] Dr. Sarmad Patino EGFR-NON AF [place] 53 mL/min/1.73m2 Critically low >=60 [facility] Comment on above: Performed By: #### U MAXI, LIPID, MG, CMP, DBIL, PHOS #### [facility] [address] [place] [address] Dr. Sarmad Patino Globulin (S) [Mass/Vol] 4.6 g/dL Normal [facility] Comment on above: Performed By: #### U MAXI, LIPID, MG, CMP, DBIL, PHOS #### [facility] [address] [address] [address] Sarmad Patino Glucose [Mass/Vol] 154 mg/dL Critically high 74-106 [facility] Comment on above: Performed By: #### U MAXI, LIPID, MG, CMP, DBIL, PHOS #### [facility] [address] [address] [address] Sarmad Patino Potassium [Moles/Vol] 3.3 mmol/L Critically low 3.5-5.1 [facility] Comment on above: Performed By: #### U MAXI, LIPID, MG, CMP, DBIL, PHOS #### [facility] [address] [address] [address] Sarmad Patino Protein [Mass/Vol] 7.1 g/dL Normal 6.4-8.2 [facility] Comment on above: Performed By: #### U MAXI, LIPID, MG, CMP, DBIL, PHOS #### [facility] [address] [address] [address] Sarmad Patino Sodium [Moles/Vol] 134 mmol/L Critically low 136-145 [facility] Comment on above: Performed By: #### U MAXI, LIPID, MG, CMP, DBIL, PHOS #### [facility] [address] [address] [address] Sarmad Patino Urea nitrogen [Mass/Vol] 24.0 mg/dL Critically high 7.0-18.0 [facility] Comment on above: Performed By: #### U MAXI, LIPID, MG, CMP, DBIL, PHOS #### [facility] [address] [place] [address] Dr. Sarmad Patino Urea nitrogen/Creatinine [Mass ratio] 22.9 mg/mg Normal [facility] Comment on above: Performed By: #### U MAXI, LIPID, MG, CMP, DBIL, PHOS #### [facility] [address] [place], [place] [address] Dr. Sarmad Patino STREPT SCREENon 01-03-2022 STREP SCREEN A Negative Normal NEGATIVE [facility] Comment on above: Performed By: #### U MAXI, LIPID, MG, CMP, DBIL, PHOS #### [facility] [address] [place], [place] [address] Dr. Sarmad Patino XR CHEST 2 Von [...] MAYRA WHITESIDE Date: 2022-01-03 03:54 Normal [facility] Quick Strepon 12-28-2021 S. pyogenes Org specific cx Ql (Throat) Negative [employer] Other Quick Strep [employer] Other SARS-CoV-2 (COVID-19) RNA NA A+probe Ql (Resp)on 12-25-2021 SARS-CoV-2 (COVID-19) RNA MURALI+probe Ql (Unsp spec) Negative [employer] Other FK506 (TACROLIMUS) WHOLE BLO ODon 12-08-2021 Tacrolimus (FK506), Blood 6.6 ng/mL Normal 2.0-20.0 [facility] Comment on above: Result Comment: Trou gh (immediately following transplant) 15.0 . Trough (steady state, 2 weeks or more after transplant): 3.0 - 8.0 . Performed by LC-MS/MS technology. Performed By: #### D DAVIDSON, MG, PHOS, CMP, LIPID, URIC #### [facility] [address] [place] [address] Dr. Sarmad Patino RAPAMUNE(SIROLIMUS)on 2021 Rapamune(Sirolimus) , whole blood 9.6 ng/mL Normal 3.0-20.0 [facility] Comment on above: Result Comment: Perf ormed by LC/MS-MS technology . This test was developed and its performance characteristics determined by [facility]. It has not been cleared or approved by the Food and Drug Administration. Performed By: #### D DAVIDSON, MG, PHOS, CMP, LIPID, URIC #### [facility] [address] [place] [address] Dr. Sarmad Patino BILIRUBIN CONJUGATED (DIRECT )on 12-05-2021 BILI, CONJUGATED 0.1 mg/dL Normal 0.0-0.2 [facility] Comment on above: Performed By: #### D DAVIDSON, MG, PHOS, CMP, LIPID, URIC #### [facility] [address] [place] [address] Dr. Sarmad Patino CBC W MANUAL DIFFon 12-06-19 22 ATYPICAL LYMPH # Normal [facility] Comment on above: Performed By: #### D DAVIDSON, MG, PHOS, CMP, LIPID, URIC #### [facility] [address] [place] [address] Dr. Sarmad Patino ATYPICAL LYMPH % Normal [facility] Comment on above: Performed By: #### D DAVIDSON, MG, PHOS, CMP, LIPID, URIC #### [facility] [address] [place] [address] Dr. Sarmad Patino BAND # Normal 0.0-0.3 [facility] Comment on above: Performed By: #### D DAVIDSON, MG, PHOS, CMP, LIPID, URIC #### [facility] [address] [place] [address] Dr. Sarmad Patino BAND % Normal 0-5 [facility] Comment on above: Performed By: #### D ADVIDSON, MG, PHOS, CMP, LIPID, URIC #### [facility] [address] [place] [address] Dr. Sarmad Patino BASOM # 0.00 103/ul Normal 0.00-0.10 [facility] Comment on above: Performed By: #### D DAVIDSON, MG, PHOS, CMP, LIPID, URIC #### [facility] [address] [address] [address] Sarmad Patino BASOM % 0.0 % Critically low 0.2-2.0 [facility] Comment on above: Performed By: #### D DAVIDSON, MG, PHOS, CMP, LIPID, URIC #### [facility] [address] [place] [address] Dr. Sarmad Patino BLAST # Normal [facility] Comment on above: Performed By: #### D DAVIDSON, MG, PHOS, CMP, LIPID, URIC #### [facility] [address] [place] [address] Dr. Sarmad Patino BLAST % Normal [facility] Comment on above: Performed By: #### D DAVIDSON, MG, PHOS, CMP, LIPID, URIC #### [facility] [address] [place] [address] Dr. Sarmad Patino CORRECTED WBC Normal 4.0-11.0 [facility] Comment on above: Performed By: #### D DAVIDSON, MG, PHOS, CMP, LIPID, URIC #### [facility] [address] [place] [address] Dr. Sarmad Patino EOS # 0.15 103/ul Normal 0.00-0.70 [facility] Comment on above: Performed By: #### D DAVIDSON, MG, PHOS, CMP, LIPID, URIC #### [facility] [address] [place] [address] Dr. Sarmad Patino EOS% 2.0 % Normal 0.9-7.0 [facility] Comment on above: Performed By: #### D DAVIDSON, MG, PHOS, CMP, LIPID, URIC #### [facility] [address] [place] [address] Dr. Sarmad Patino HCT 47.5 % Normal 36.0-48.0 [facility] Comment on above: Performed By: #### D DAVIDSON, MG, PHOS, CMP, LIPID, URIC #### [facility] [address] [address] [address] Sarmad Patino HGB 15.6 g/dl Normal 12.0-16.0 [facility] Comment on above: Performed By: #### D DAVIDSON, MG, PHOS, CMP, LIPID, URIC #### [facility] [address] [place] [address] Dr. Sarmad Patino LYMPHM # 1.46 103/ul Normal 1.20-3.80 [facility] Comment on above: Performed By: #### D DAVIDSON, MG, PHOS, CMP, LIPID, URIC #### [facility] [address] [place] [address] Dr. Sarmad Patino LYMPHM% 19.0 % Critically low 20.5-60.0 [facility] Comment on above: Performed By: #### D DAVIDSON, MG, PHOS, CMP, LIPID, URIC #### [facility] [address] [place] [address] Dr. Sarmad Patino MCH 28.9 pg Normal 26.7-34.0 [facility] Comment on above: Performed By: #### D DAVIDSON, MG, PHOS, CMP, LIPID, URIC #### [facility] [address] [place] [address] Dr. Sarmad Patino MCHC 32.8 g/dl Normal 29.9-35.2 [facility] Comment on above: Performed By: #### D DAVIDSON, MG, PHOS, CMP, LIPID, URIC #### [facility] [address] [place] [address] Dr. Sarmad Patino MCV 88.1 fL Normal 81.0-99.0 [facility] Comment on above: Performed By: #### D DAVIDSON, MG, PHOS, CMP, LIPID, URIC #### [facility] [address] [place] [address] Dr. Sarmad Patino METAMYELOCYTE # Normal [facility] Comment on above: Performed By: #### D DAVIDSON, MG, PHOS, CMP, LIPID, URIC #### [facility] [address] [place] [address] Dr. Sarmad Patino METAMYELOCYTE % Normal [facility] Comment on above: Performed By: #### D DAVIDSON, MG, PHOS, CMP, LIPID, URIC #### [facility] [address] [address] [address] Sarmad Patino MONOM# 0.85 103/ul Critically high 0.30-0.80 [facility] Comment on above: Performed By: #### D DAVIDSON, MG, PHOS, CMP, LIPID, URIC #### [facility] [address] [address] [address] Sarmad Patino MONOM% 11.0 % Normal 1.7-12.0 [facility] Comment on above: Performed By: #### D DAVIDSON, MG, PHOS, CMP, LIPID, URIC #### [facility] [address] [place] [address] Dr. Sarmad Patino MPV 11.3 fL Normal 9.5-13.5 [facility] Comment on above: Performed By: #### D DAVIDSON, MG, PHOS, CMP, LIPID, URIC #### [facility] [address] [place] [address] Dr. Sarmad Patino MYELOCYTE # Normal [facility] Comment on above: Performed By: #### D DAVIDSON, MG, PHOS, CMP, LIPID, URIC #### [facility] [address] [place] [address] Dr. Sarmad Patino MYELOCYTE % Normal [facility] Comment on above: Performed By: #### D DAVIDSON, MG, PHOS, CMP, LIPID, URIC #### [facility] [address] [place] [address] Dr. Sarmad Patino NRBC Normal [facility] Comment on above: Performed By: #### D DAVIDSON, MG, PHOS, CMP, LIPID, URIC #### [facility] [address] [address] [address] Sarmad Patino PLT 214 103/ul Normal 150-450 [facility] Comment on above: Performed By: #### D DAVIDSON, MG, PHOS, CMP, LIPID, URIC #### [facility] [address] [place] [address] Dr. Sarmad Patino RBC 5.39 106/ul Normal 4.20-5.40 [facility] Comment on above: Performed By: #### D DAVIDSON, MG, PHOS, CMP, LIPID, URIC #### [facility] [address] [place] [address] Dr. Sarmad Patino RDW 13.8 % Normal 11.0-15.0 [facility] Comment on above: Performed By: #### D DAVIDSON, MG, PHOS, CMP, LIPID, URIC #### [facility] [address] [place] [address] Dr. Sarmad Patino SEG # 5.24 103/ul Normal 1.40-6.50 [facility] Comment on above: Performed By: #### D DAVIDSON, MG, PHOS, CMP, LIPID, URIC #### [facility] [address] [place] [address] Dr. Sarmad Patino SEG % 68.0 % Normal 43.0-75.0 [facility] Comment on above: Performed By: #### D DAVIDSON, MG, PHOS, CMP, LIPID, URIC #### [facility] [address] [place] [address] Dr. Sarmad Patino WBC 7.7 103/ul Normal 4.0-11.0 [facility] Comment on above: Performed By: #### D DAVIDSON, MG, PHOS, CMP, LIPID, URIC #### [facility] [address] [place] [address] Dr. Sarmad Patino LIPID PROFILEon 12-05-2021 CHOL-HDL RATIO NORM SEE BELOW Normal [facility] Comment on above: Result Comment: 3.3 - 4.4 LOW RISK 4.4 - 7.1 AVERAGE RISK 7.1 - 11.0 MODERATE RISK >11.0 HIGH RISK Performed By: #### D DAVIDSON, MG, PHOS, CMP, LIPID, URIC #### [facility] [address] [place] [address] Dr. Sarmad Patino Cholesterol [Mass/Vol] 170 mg/dL Normal <=200 [facility] Comment on above: Performed By: #### D DAVIDSON, MG, PHOS, CMP, LIPID, URIC #### [facility] [address] [address] [address] Sarmad Patino Cholesterol in HDL [Mass/Vol] 54 mg/dL Normal 40-60 [facility] Comment on above: Performed By: #### D DAVIDSON, MG, PHOS, CMP, LIPID, URIC #### [facility] [address] [address] [address] Sarmad Patino Cholesterol in LDL [Mass/Vol] 92.2 mg/dL Normal [facility] Comment on above: Performed By: #### D DAVIDSON, MG, PHOS, CMP, LIPID, URIC #### [facility] [address] [address] [address] Sarmad Patino Cholesterol.total/C holesterol in HDL [Mass ratio] 3.1 {ratio} Normal [facility] Comment on above: Performed By: #### D DAVIDSON, MG, PHOS, CMP, LIPID, URIC #### [facility] [address] [address] [address] Sarmad Patino HDL NORMAL > or = 60 mg/dl - LO W CARDIOVASCULAR RISK <40 mg/dl - HIGH CARDIOVASCULAR RISK Normal [facility] Comment on above: Performed By: #### D DAVIDSON, MG, PHOS, CMP, LIPID, URIC #### [facility] [address] [address] [address] Sarmad Patino LDL CALC NORMAL SEE BELOW Normal [facility] Comment on above: Result Comment: <100 mg/dl OPTIMAL 100 - 129 mg/dl NEAR OR ABOVE OPTIMAL 130 - 159 mg/dl BORDERLINE HIGH 160 - 189 mg/dl HIGH >190 mg/dl VERY HIGH Performed By: #### D DAVIDSON, MG, PHOS, CMP, LIPID, URIC #### [facility] [address] [address] [address] Sarmad Patino Triglyceride [Mass/Vol] 119 mg/dL Normal <=150 [facility] Comment on above: Performed By: #### D DAVIDSON, MG, PHOS, CMP, LIPID, URIC #### [facility] [address] [address] [address] Sarmad Patino VLDL CALC 23.8 mg/dL Normal [facility] Comment on above: Performed By: #### D DAVIDSON, MG, PHOS, CMP, LIPID, URIC #### [facility] [address] [address] [address] Sarmad Patino MAGNESIUMon 12-05-2021 Magnesium [Mass/Vol] 1.8 mg/dL Normal 1.8-2.4 [facility] Comment on above: Performed By: #### D DAVIDSON, MG, PHOS, CMP, LIPID, URIC #### [facility] [address] [place] [address] Dr. Sarmad Patino PHOSPHORUSon 12-05-2021 Phosphate [Mass/Vol] 3.8 mg/dL Normal 2.6-4.7 [facility] Comment on above: Performed By: #### D DAVIDSON, MG, PHOS, CMP, LIPID, URIC #### [facility] [address] [place] [address] Dr. Sarmad Patino PROF 14(COMP METB)on 022 Albumin [Mass/Vol] 3.7 g/dL Normal 3.4-5.0 [facility] Comment on above: Performed By: #### D DAVIDSON, MG, PHOS, CMP, LIPID, URIC #### [facility] [address] [place] [address] Dr. Sarmad Patino Albumin/Globulin [Mass ratio] 1.0 {ratio} Normal [facility] Comment on above: Performed By: #### D DAVIDSON, MG, PHOS, CMP, LIPID, URIC #### [facility] [address] [place] [address] Dr. Sarmad Patino ALP [Catalytic activity/Vol] 151 U/L Critically high 46-116 [facility] Comment on above: Performed By: #### D DAVIDSON, MG, PHOS, CMP, LIPID, URIC #### [facility] [address] [place] [address] Dr. Sarmad Patino ALT [Catalytic activity/Vol] 27 U/L Normal 14-59 [facility] Comment on above: Performed By: #### D DAVIDSON, MG, PHOS, CMP, LIPID, URIC #### [facility] [address] [place] [address] Dr. Sarmad Patino Anion gap [Moles/Vol] 14.5 mmol/L Normal [facility] Comment on above: Performed By: #### D DAVIDSON, MG, PHOS, CMP, LIPID, URIC #### [facility] [address] [place] [address] Dr. Sarmad Patino AST [Catalytic activity/Vol] 25 U/L Normal 15-37 [facility] Comment on above: Performed By: #### D DAVIDSON, MG, PHOS, CMP, LIPID, URIC #### [facility] [address] [address] [address] Sarmad Patino Bilirubin [Mass/Vol] 0.4 mg/dL Normal 0.2-1.0 [facility] Comment on above: Performed By: #### D DAVIDSON, MG, PHOS, CMP, LIPID, URIC #### [facility] [address] [place] [address] Dr. Sarmad Patino Calcium [Mass/Vol] 9.4 mg/dL Normal 8.5-10.1 [facility] Comment on above: Performed By: #### D DAVIDSON, MG, PHOS, CMP, LIPID, URIC #### [facility] [address] [address] [address] Sarmad Patino Chloride [Moles/Vol] 103 mmol/L Normal 98-107 [facility] Comment on above: Performed By: #### D DAVIDSON, MG, PHOS, CMP, LIPID, URIC #### [facility] [address] [place] [address] Dr. Sarmad Patino CO2 [Moles/Vol] 26.5 mmol/L Normal 21.0-32.0 [facility] Comment on above: Performed By: #### D DAVIDSON, MG, PHOS, CMP, LIPID, URIC #### [facility] [address] [place] [address] Dr. Sramad Patino Creatinine [Mass/Vol] 0.87 mg/dL Normal 0.55-1.02 [facility] Comment on above: Performed By: #### D DAVIDSON, MG, PHOS, CMP, LIPID, URIC #### [facility] [address] [address] [address] Sarmad Patino EGFR-AF [place]IZ[place] >60 Normal >=60 [facility] Comment on above: Performed By: #### D DAVIDSON, MG, PHOS, CMP, LIPID, URIC #### [facility] [address] [address] [address] Sarmad Patino EGFR-NON AF [place]IZ[place] >60 Normal >=60 [facility] Comment on above: Performed By: #### D DAVIDSON, MG, PHOS, CMP, LIPID, URIC #### [facility] [address] [address] [address] Sarmad Patino Globulin (S) [Mass/Vol] 3.8 g/dL Normal [facility] Comment on above: Performed By: #### D DAVIDSON, MG, PHOS, CMP, LIPID, URIC #### [facility] [address] [address] [address] Sarmad Patino Glucose [Mass/Vol] 104 mg/dL Normal 74-106 [facility] Comment on above: Performed By: #### D DAVIDSON, MG, PHOS, CMP, LIPID, URIC #### [facility] [address] [address] [address] Sarmad Patino Potassium [Moles/Vol] 4.0 mmol/L Normal 3.5-5.1 [facility] Comment on above: Performed By: #### D DAVIDSON, MG, PHOS, CMP, LIPID, URIC #### [facility] [address] [address] [address] Sarmad Patino Protein [Mass/Vol] 7.5 g/dL Normal 6.4-8.2 [facility] Comment on above: Performed By: #### D DAVIDSON, MG, PHOS, CMP, LIPID, URIC #### [facility] [address] [address] [address] Sarmad Patino Sodium [Moles/Vol] 140 mmol/L Normal 136-145 [facility] Comment on above: Performed By: #### D DAVIDSON, MG, PHOS, CMP, LIPID, URIC #### [facility] [address] [address] [address] Sarmad Patino Urea nitrogen [Mass/Vol] 19.0 mg/dL Critically high 7.0-18.0 [facility] Comment on above: Performed By: #### D DAVIDSON, MG, PHOS, CMP, LIPID, URIC #### [facility] [address] [place] [address] Dr. Sarmad Patino Urea nitrogen/Creatinine [Mass ratio] 21.8 mg/mg Normal [facility] Comment on above: Performed By: #### D DAVIDSON, MG, PHOS, CMP, LIPID, URIC #### [facility] [address] [address] [address] Sarmad Patino URIC ACID SERUMon 12-05-2021 Urate [Mass/Vol] 5.2 mg/dL Normal 2.6-6.0 [facility] Comment on above: Performed By: #### D DAVIDSON, MG, PHOS, CMP, LIPID, URIC #### [facility] [address] [place] [address] Dr. Sarmad CHRISTIEMU, WHOLE BLOODon EVEROLIMUS 7.0 ng/mL Normal 3.0-8.0 [facility] Comment on above: Result Comment: Perf ormed by LC-MS/MS technology. Performed By: #### D DAVIDSON, MG, PHOS, CMP, LIPID, URIC #### [facility] [address] [place] [address] Dr. Sarmad Patino FK506 (TACROLIMUS) WHOLE BLO ODon 11-10-2021 Tacrolimus (FK506), Blood 6.4 ng/mL Normal 2.0-20.0 [facility] Comment on above: Result Comment: Trou gh (immediately following transplant) 15.0 . Trough (steady state, 2 weeks or more after transplant): 3.0 - 8.0 . Performed by LC-MS/MS technology. Performed By: #### D DAVIDSON, MG, PHOS, CMP, LIPID, URIC #### [facility] [address] [place] [address] Dr. Sarmad Patino BK VIRUS PCR QUANTon 022 BKV DNA QUANT PCR PLASMA Negative Normal Negative [facility] Comment on above: Result Comment: No B K DNA detected. . The linear range of the assay is 22 - 100,000,000 IU/mL. Performed By: #### U MAXI, LIPID, MG, CMP, DBIL, PHOS #### [facility] [address] [place] [address] Dr. Sarmad Patino Log10 BKV DNA Plasma Normal [facility] Comment on above: Performed By: #### U MAXI, LIPID, MG, CMP, DBIL, PHOS #### [facility] [address] [place] [address] Dr. Sarmad Patino BILIRUBIN CONJUGATED (DIRECT )on 11-07-2021 BILI, CONJUGATED 0.1 mg/dL Normal 0.0-0.2 [facility] Comment on above: Performed By: #### D DAVIDSON, MG, PHOS, CMP, LIPID, URIC #### [facility] [address] [place] [address] Dr. Sarmad Patino CBC AUTO DIFFon 11-07-2021 BASO # 0.0 103/ul Normal 0.0-0.1 [facility] Comment on above: Performed By: #### D DAVIDSON, MG, PHOS, CMP, LIPID, URIC #### [facility] [address] [place] [address] Dr. Sarmad Patino Basophils/100 WBC (Bld) 0.3 % Normal 0.2-2.0 [facility] Comment on above: Performed By: #### D DAVIDSON, MG, PHOS, CMP, LIPID, URIC #### [facility] [address] [place] [address] Dr. Sarmad Patino EO # 0.1 103/ul Normal 0.0-0.7 [facility] Comment on above: Performed By: #### D DAVIDSON, MG, PHOS, CMP, LIPID, URIC #### [facility] [address] [place] [address] Dr. Sarmad Patino Eosinophils/100 WBC (Bld) 2.1 % Normal 0.9-7.0 [facility] Comment on above: Performed By: #### D DAVIDSON, MG, PHOS, CMP, LIPID, URIC #### [facility] [address] [place] [address] Dr. Sarmad Patino Erythrocyte distribution width (RBC) [Ratio] 13.5 % Normal 11.0-15.0 [facility] Comment on above: Performed By: #### D DAVIDSON, MG, PHOS, CMP, LIPID, URIC #### [facility] [address] [place] [address] Dr. Sarmad Patino Hematocrit (Bld) [Volume fraction] 46.7 % Normal 36.0-48.0 [facility] Comment on above: Performed By: #### D DAVIDSON, MG, PHOS, CMP, LIPID, URIC #### [facility] [address] [place] [address] Dr. Sarmad Patino Hemoglobin (Bld) [Mass/Vol] 15.1 g/dL Normal 12.0-16.0 [facility] Comment on above: Performed By: #### D DAVIDSON, MG, PHOS, CMP, LIPID, URIC #### [facility] [address] [place] [address] Dr. Sarmad Patino IG # 0.03 10e3/ul Normal 0.00-0.03 [facility] Comment on above: Performed By: #### D DAVIDSON, MG, PHOS, CMP, LIPID, URIC #### [facility] [address] [place] [address] Dr. Sarmad Patino IG % 0.5 % Normal 0.0-0.5 [facility] Comment on above: Performed By: #### D DAVIDSON, MG, PHOS, CMP, LIPID, URIC #### [facility] [address] [place] [address] Dr. Sarmad Patino LYMPH # 1.3 103/ul Normal 1.2-3.8 [facility] Comment on above: Performed By: #### D DAVIDSON, MG, PHOS, CMP, LIPID, URIC #### [facility] [address] [place] [address] Dr. Sarmad Patino Lymphocytes/100 WBC (Bld) 19.9 % Critically low 20.5-60.0 [facility] Comment on above: Performed By: #### D DAVIDSON, MG, PHOS, CMP, LIPID, URIC #### [facility] [address] [place] [address] Dr. Sarmad Patino MANUAL DIFF REQ NO Normal [facility] Comment on above: Performed By: #### D DAVIDSON, MG, PHOS, CMP, LIPID, URIC #### [facility] [address] [place] [address] Dr. Sarmad Patino MCH (RBC) [Entitic mass] 28.6 pg Normal 26.7-34.0 [facility] Comment on above: Performed By: #### D DAVIDSON, MG, PHOS, CMP, LIPID, URIC #### [facility] [address] [place] [address] Dr. Sarmad Patino MCHC (RBC) [Mass/Vol] 32.3 g/dL Normal 29.9-35.2 [facility] Comment on above: Performed By: #### D DAVIDSON, MG, PHOS, CMP, LIPID, URIC #### [facility] [address] [place] [address] Dr. Sarmad Patino MCV (RBC) [Entitic vol] 88.4 fL Normal 81.0-99.0 [facility] Comment on above: Performed By: #### D DAVIDSON, MG, PHOS, CMP, LIPID, URIC #### [facility] [address] [place] [address] Dr. Sarmad Patino MONO # 0.8 103/ul Normal 0.3-0.8 [facility] Comment on above: Performed By: #### D DAVIDSON, MG, PHOS, CMP, LIPID, URIC #### [facility] [address] [place] [address] Dr. Sarmad Patino Monocytes/100 WBC (Bld) 12.9 % Critically high 1.7-12.0 [facility] Comment on above: Performed By: #### D DAVIDSON, MG, PHOS, CMP, LIPID, URIC #### [facility] [address] [place] [address] Dr. Sarmad Patino NEUT # 4.0 103/ul Normal 1.4-6.5 [facility] Comment on above: Performed By: #### D DAVIDSON, MG, PHOS, CMP, LIPID, URIC #### [facility] [address] [address] [address] Sarmad Patino Neutrophils/100 WBC (Bld) 64.3 % Normal 43.0-75.0 [facility] Comment on above: Performed By: #### D DAVIDSON, MG, PHOS, CMP, LIPID, URIC #### [facility] [address] [address] [address] Sarmad Patino Platelet mean volume (Bld) [Entitic vol] 11.3 fL Normal 9.5-13.5 [facility] Comment on above: Performed By: #### D DAVIDSON, MG, PHOS, CMP, LIPID, URIC #### [facility] [address] [address] [address] Sarmad Patino PLT 241 103/ul Normal 150-450 [facility] Comment on above: Performed By: #### D DAVIDSON, MG, PHOS, CMP, LIPID, URIC #### [facility] [address] [place] [address] Dr. Sarmad Patino RBC 5.28 106/ul Normal 4.20-5.40 [facility] Comment on above: Performed By: #### D DAVIDSON, MG, PHOS, CMP, LIPID, URIC #### [facility] [address] [place] [address] Dr. Sarmad Patino WBC 6.3 103/ul Normal 4.0-11.0 [facility] Comment on above: Performed By: #### D DAVIDSON, MG, PHOS, CMP, LIPID, URIC #### [facility] [address] [place] [address] Dr. Sarmad Patino GLYCOHEMOGLOBIN A1Con 2021 ADA RECOMMENDATION SEE BELOW Normal [facility] Comment on above: Result Comment: ADA RECOMMENDED LIMIT 4.0 - 6.0 ADA THERAPEUTIC TARGET < 7.0 ACTION SUGGESTED > 7.0 Performed By: #### D DAVIDSON, MG, PHOS, CMP, LIPID, URIC #### [facility] [address] [place] [address] Dr. Sarmad Patino Glucose [Mass/Vol] 120 mg/dL Normal [facility] Comment on above: Performed By: #### D DAVIDSON, MG, PHOS, CMP, LIPID, URIC #### [facility] [address] [address] [address] Sarmad Patino HbA1c (Bld) [Mass fraction] 5.8 % Normal 4.5-6.2 [facility] Comment on above: Performed By: #### D DAVIDSON, MG, PHOS, CMP, LIPID, URIC #### [facility] [address] [address] [address] Sarmad Patino LIPID PROFILEon 11-07-2021 CHOL-HDL RATIO NORM SEE BELOW Normal [facility] Comment on above: Result Comment: 3.3 - 4.4 LOW RISK 4.4 - 7.1 AVERAGE RISK 7.1 - 11.0 MODERATE RISK >11.0 HIGH RISK Performed By: #### D DAVIDSON, MG, PHOS, CMP, LIPID, URIC #### [facility] [address] [place] [address] Dr. Sarmad Patino Cholesterol [Mass/Vol] 157 mg/dL Normal <=200 [facility] Comment on above: Performed By: #### D DAVIDSON, MG, PHOS, CMP, LIPID, URIC #### [facility] [address] [place] [address] Dr. Sarmad Patino Cholesterol in HDL [Mass/Vol] 48 mg/dL Normal 40-60 [facility] Comment on above: Performed By: #### D DAVIDSON, MG, PHOS, CMP, LIPID, URIC #### [facility] [address] [address] [address] Sarmad Patino Cholesterol in LDL [Mass/Vol] 89.6 mg/dL Normal [facility] Comment on above: Performed By: #### D DAVIDSON, MG, PHOS, CMP, LIPID, URIC #### [facility] [address] [place] [address] Dr. Sarmad Patino Cholesterol.total/C holesterol in HDL [Mass ratio] 3.3 {ratio} Normal [facility] Comment on above: Performed By: #### D DAVIDSON, MG, PHOS, CMP, LIPID, URIC #### [facility] [address] [place] [address] Dr. Sarmad Patino HDL NORMAL > or = 60 mg/dl - LO W CARDIOVASCULAR RISK <40 mg/dl - HIGH CARDIOVASCULAR RISK Normal [facility] Comment on above: Performed By: #### D DAVIDSON, MG, PHOS, CMP, LIPID, URIC #### [facility] [address] [address] [address] Sarmad Patino LDL CALC NORMAL SEE BELOW Normal [facility] Comment on above: Result Comment: <100 mg/dl OPTIMAL 100 - 129 mg/dl NEAR OR ABOVE OPTIMAL 130 - 159 mg/dl BORDERLINE HIGH 160 - 189 mg/dl HIGH >190 mg/dl VERY HIGH Performed By: #### D DAVIDSON, MG, PHOS, CMP, LIPID, URIC #### [facility] [address] [place] [address] Dr. Sarmad Patino Triglyceride [Mass/Vol] 97 mg/dL Normal <=150 [facility] Comment on above: Performed By: #### D DAVIDSON, MG, PHOS, CMP, LIPID, URIC #### [facility] [address] [address] [address] Sarmad Patino VLDL CALC 19.4 mg/dL Normal [facility] Comment on above: Performed By: #### D DAVIDSON, MG, PHOS, CMP, LIPID, URIC #### [facility] [address] [place] [address] Dr. Sarmad Patino MAGNESIUMon 11-07-2021 Magnesium [Mass/Vol] 1.9 mg/dL Normal 1.8-2.4 [facility] Comment on above: Performed By: #### D DAVIDSON, MG, PHOS, CMP, LIPID, URIC #### [facility] [address] [address] [address] Sarmad Patino PHOSPHORUSon 11-07-2021 Phosphate [Mass/Vol] 3.4 mg/dL Normal 2.6-4.7 [facility] Comment on above: Performed By: #### D DAVIDSON, MG, PHOS, CMP, LIPID, URIC #### [facility] [address] [place] [address] Dr. Sarmad Patino PROF 14(COMP METB)on 022 Albumin [Mass/Vol] 3.6 g/dL Normal 3.4-5.0 [facility] Comment on above: Performed By: #### D DAVIDSON, MG, PHOS, CMP, LIPID, URIC #### [facility] [address] [address] [address] Sarmad Patino Albumin/Globulin [Mass ratio] 0.9 {ratio} Normal [facility] Comment on above: Performed By: #### D DAVIDSON, MG, PHOS, CMP, LIPID, URIC #### [facility] [address] [address] [address] Sarmad Patino ALP [Catalytic activity/Vol] 158 U/L Critically high 46-116 [facility] Comment on above: Performed By: #### D DAVIDSON, MG, PHOS, CMP, LIPID, URIC #### [facility] [address] [place] [address] Dr. Sarmad Patino ALT [Catalytic activity/Vol] 23 U/L Normal 14-59 [facility] Comment on above: Performed By: #### D DAVIDSON, MG, PHOS, CMP, LIPID, URIC #### [facility] [address] [place] [address] Dr. Sarmad Patino Anion gap [Moles/Vol] 14.8 mmol/L Normal [facility] Comment on above: Performed By: #### D DAVIDSON, MG, PHOS, CMP, LIPID, URIC #### [facility] [address] [place] [address] Dr. Sarmad Patino AST [Catalytic activity/Vol] 18 U/L Normal 15-37 [facility] Comment on above: Performed By: #### D DAVIDSON, MG, PHOS, CMP, LIPID, URIC #### [facility] [address] [address] [address] Sarmad Patino Bilirubin [Mass/Vol] 0.4 mg/dL Normal 0.2-1.0 [facility] Comment on above: Performed By: #### D DAVIDSON, MG, PHOS, CMP, LIPID, URIC #### [facility] [address] [address] [address] Sarmad Patino Calcium [Mass/Vol] 9.3 mg/dL Normal 8.5-10.1 [facility] Comment on above: Performed By: #### D DAVIDSON, MG, PHOS, CMP, LIPID, URIC #### [facility] [address] [address] [address] Sarmad Patino Chloride [Moles/Vol] 105 mmol/L Normal 98-107 [facility] Comment on above: Performed By: #### D DAVIDSON, MG, PHOS, CMP, LIPID, URIC #### [facility] [address] [address] [address] Sarmad Patino CO2 [Moles/Vol] 26.1 mmol/L Normal 21.0-32.0 [facility] Comment on above: Performed By: #### D DAVIDSON, MG, PHOS, CMP, LIPID, URIC #### [facility] [address] [address] [address] Sarmad Patino Creatinine [Mass/Vol] 0.84 mg/dL Normal 0.55-1.02 [facility] Comment on above: Performed By: #### D DAVIDSON, MG, PHOS, CMP, LIPID, URIC #### [facility] [address] [address] [address] Sarmad Patino EGFR-AF [place] >60 Normal >=60 [facility] Comment on above: Performed By: #### D DAVIDSON, MG, PHOS, CMP, LIPID, URIC #### [facility] [address] [address] [address] Sarmad Patino EGFR-NON AF [place] >60 Normal >=60 [facility] Comment on above: Performed By: #### D DAVIDSON, MG, PHOS, CMP, LIPID, URIC #### [facility] [address] [address] [address] Sarmad Patino Globulin (S) [Mass/Vol] 3.8 g/dL Normal [facility] Comment on above: Performed By: #### D DAVIDSON, MG, PHOS, CMP, LIPID, URIC #### [facility] [address] [address] [address] Sarmad Patino Glucose [Mass/Vol] 97 mg/dL Normal 74-106 [facility] Comment on above: Performed By: #### D DAVIDSON, MG, PHOS, CMP, LIPID, URIC #### [facility] [address] [address] [address] Sarmad Patino Potassium [Moles/Vol] 3.9 mmol/L Normal 3.5-5.1 [facility] Comment on above: Performed By: #### D DAVIDSON, MG, PHOS, CMP, LIPID, URIC #### [facility] [address] [place] [address] Dr. Sarmad Patino Protein [Mass/Vol] 7.4 g/dL Normal 6.4-8.2 [facility] Comment on above: Performed By: #### D DAVIDSON, MG, PHOS, CMP, LIPID, URIC #### [facility] [address] [place] [address] Dr. Sarmad Patino Sodium [Moles/Vol] 142 mmol/L Normal 136-145 [facility] Comment on above: Performed By: #### D DAVIDSON, MG, PHOS, CMP, LIPID, URIC #### [facility] [address] [place] [address] Dr. Sarmad Patino Urea nitrogen [Mass/Vol] 21.0 mg/dL Critically high 7.0-18.0 [facility] Comment on above: Performed By: #### D DAVIDSON, MG, PHOS, CMP, LIPID, URIC #### [facility] [address] [place] [address] Dr. Sarmad Patino Urea nitrogen/Creatinine [Mass ratio] 25.0 mg/mg Normal [facility] Comment on above: Performed By: #### D DAVIDSON, MG, PHOS, CMP, LIPID, URIC #### [facility] [address] [place] [address] Dr. Sarmad Patino URIC ACID SERUMon 11-07-2021 Urate [Mass/Vol] 5.1 mg/dL Normal 2.6-6.0 [facility] Comment on above: Performed By: #### D DAVIDSON, MG, PHOS, CMP, LIPID, URIC #### [facility] [address] [place] [address] Dr. Sarmad Patino BOX TEST SENT OUTon 07-18-20 22 SENT TO REF LAB 10/15/2021 Normal [facility] Comment on above: Performed By: #### D DAVIDSON, MG, PHOS, CMP, LIPID, URIC #### [facility] [address] [place] [address] Dr. Sarmad Patino EVEROLIMU, WHOLE BLOODon EVEROLIMUS 6.7 ng/mL Normal 3.0-8.0 [facility] Comment on above: Result Comment: Perf ormed by LC-MS/MS technology. Performed By: #### D DAVIDSON, MG, PHOS, CMP, LIPID, URIC #### [facility] [address] [address] [address] Sarmad Patino FK506 (TACROLIMUS) WHOLE BLO ODon 10-10-2021 Tacrolimus (FK506), Blood 5.9 ng/mL Normal 2.0-20.0 [facility] Comment on above: Result Comment: Trou gh (immediately following transplant) 15.0 . Trough (steady state, 2 weeks or more after transplant): 3.0 - 8.0 . Performed by LC-MS/MS technology. Performed By: #### D DAVIDSON, MG, PHOS, CMP, LIPID, URIC #### [facility] [address] [place] [address] Dr. Sarmad Patino BILIRUBIN CONJUGATED (DIRECT )on 10-08-2021 BILI, CONJUGATED 0.1 mg/dL Normal 0.0-0.2 [facility] Comment on above: Performed By: #### U MAXI, LIPID, MG, CMP, DBIL, PHOS #### [facility] [address] [place] [address] Dr. Sarmad Patino CBC AUTO DIFFon 10-08-2021 BASO # 0.0 103/ul Normal 0.0-0.1 [facility] Comment on above: Performed By: #### D DAVIDSON, MG, PHOS, CMP, LIPID, URIC #### [facility] [address] [place] [address] Dr. Sarmad Patino Basophils/100 WBC (Bld) 0.1 % Critically low 0.2-2.0 [facility] Comment on above: Performed By: #### D DAVIDSON, MG, PHOS, CMP, LIPID, URIC #### [facility] [address] [address] [address] Sarmad Patino EO # 0.1 103/ul Normal 0.0-0.7 [facility] Comment on above: Performed By: #### D DAVIDSON, MG, PHOS, CMP, LIPID, URIC #### [facility] [address] [place] [address] Dr. Sarmad Patino Eosinophils/100 WBC (Bld) 1.4 % Normal 0.9-7.0 [facility] Comment on above: Performed By: #### D DAVIDSON, MG, PHOS, CMP, LIPID, URIC #### [facility] [address] [place] [address] Dr. Sarmad Patino Erythrocyte distribution width (RBC) [Ratio] 13.6 % Normal 11.0-15.0 [facility] Comment on above: Performed By: #### D DAVIDSON, MG, PHOS, CMP, LIPID, URIC #### [facility] [address] [place] [address] Dr. Sarmad Patino Hematocrit (Bld) [Volume fraction] 47.5 % Normal 36.0-48.0 [facility] Comment on above: Performed By: #### D DAVIDSON, MG, PHOS, CMP, LIPID, URIC #### [facility] [address] [place] [address] Dr. Sarmad Patino Hemoglobin (Bld) [Mass/Vol] 15.7 g/dL Normal 12.0-16.0 [facility] Comment on above: Performed By: #### D DAVIDSON, MG, PHOS, CMP, LIPID, URIC #### [facility] [address] [place] [address] Dr. Sarmad Patino IG # 0.04 10e3/ul Critically high 0.00-0.03 [facility] Comment on above: Performed By: #### D DAVIDSON, MG, PHOS, CMP, LIPID, URIC #### [facility] [address] [place] [address] Dr. Sarmad Patino IG % 0.5 % Normal 0.0-0.5 [facility] Comment on above: Performed By: #### D DAVIDSON, MG, PHOS, CMP, LIPID, URIC #### [facility] [address] [place] [address] Dr. Sarmad Patino LYMPH # 1.3 103/ul Normal 1.2-3.8 [facility] Comment on above: Performed By: #### D DAVIDSON, MG, PHOS, CMP, LIPID, URIC #### [facility] [address] [place] [address] Dr. Sarmad Patino Lymphocytes/100 WBC (Bld) 15.4 % Critically low 20.5-60.0 [facility] Comment on above: Performed By: #### D DAVIDSON, MG, PHOS, CMP, LIPID, URIC #### [facility] [address] [place] [address] Dr. Sarmad Patino MANUAL DIFF REQ NO Normal [facility] Comment on above: Performed By: #### D DAVIDSON, MG, PHOS, CMP, LIPID, URIC #### [facility] [address] [place] [address] Dr. Sarmad Patino MCH (RBC) [Entitic mass] 29.1 pg Normal 26.7-34.0 [facility] Comment on above: Performed By: #### D DAVIDSON, MG, PHOS, CMP, LIPID, URIC #### [facility] [address] [place] [address] Dr. Sarmad Patino MCHC (RBC) [Mass/Vol] 33.1 g/dL Normal 29.9-35.2 [facility] Comment on above: Performed By: #### D DAVIDSON, MG, PHOS, CMP, LIPID, URIC #### [facility] [address] [place] [address] Dr. Sarmad Patino MCV (RBC) [Entitic vol] 88.0 fL Normal 81.0-99.0 [facility] Comment on above: Performed By: #### D DAVIDSON, MG, PHOS, CMP, LIPID, URIC #### [facility] [address] [place] [address] Dr. Sarmad Patino MONO # 0.9 103/ul Critically high 0.3-0.8 [facility] Comment on above: Performed By: #### D DAVIDSON, MG, PHOS, CMP, LIPID, URIC #### [facility] [address] [place] [address] Dr. Sarmad Patino Monocytes/100 WBC (Bld) 10.2 % Normal 1.7-12.0 [facility] Comment on above: Performed By: #### D DAVIDSON, MG, PHOS, CMP, LIPID, URIC #### [facility] [address] [place] [address] Dr. Samrad Patino NEUT # 6.1 103/ul Normal 1.4-6.5 [facility] Comment on above: Performed By: #### D DAVIDSON, MG, PHOS, CMP, LIPID, URIC #### [facility] [address] [place] [address] Dr. Sarmad Patino Neutrophils/100 WBC (Bld) 72.4 % Normal 43.0-75.0 [facility] Comment on above: Performed By: #### D DAVIDSON, MG, PHOS, CMP, LIPID, URIC #### [facility] [address] [place] [address] Dr. Sarmad Patino Platelet mean volume (Bld) [Entitic vol] 11.1 fL Normal 9.5-13.5 [facility] Comment on above: Performed By: #### D DAVIDSON, MG, PHOS, CMP, LIPID, URIC #### [facility] [address] [place] [address] Dr. Sarmad Patino PLT 213 103/ul Normal 150-450 [facility] Comment on above: Performed By: #### D DAVIDSON, MG, PHOS, CMP, LIPID, URIC #### [facility] [address] [address] [address] Sarmad Patino RBC 5.40 106/ul Normal 4.20-5.40 [facility] Comment on above: Performed By: #### D DAVIDSON, MG, PHOS, CMP, LIPID, URIC #### [facility] [address] [place] [address] Dr. Sarmad Patino WBC 8.4 103/ul Normal 4.0-11.0 [facility] Comment on above: Performed By: #### D DAVIDSON, MG, PHOS, CMP, LIPID, URIC #### [facility] [address] [address] [address] Sarmad Patino LIPID PROFILEon 10-08-2021 CHOL-HDL RATIO NORM SEE BELOW Normal [facility] Comment on above: Result Comment: 3.3 - 4.4 LOW RISK 4.4 - 7.1 AVERAGE RISK 7.1 - 11.0 MODERATE RISK >11.0 HIGH RISK Performed By: #### D DAVIDSON, MG, PHOS, CMP, LIPID, URIC #### [facility] [address] [address] [address] Sarmad Patino Cholesterol [Mass/Vol] 155 mg/dL Normal <=200 [facility] Comment on above: Performed By: #### D DAVIDSON, MG, PHOS, CMP, LIPID, URIC #### [facility] [address] [address] [address] Sarmad Patino Cholesterol in HDL [Mass/Vol] 49 mg/dL Normal 40-60 [facility] Comment on above: Performed By: #### D DAVIDSON, MG, PHOS, CMP, LIPID, URIC #### [facility] [address] [address] [address] Sarmad Patino Cholesterol in LDL [Mass/Vol] 73.8 mg/dL Normal [facility] Comment on above: Performed By: #### D DAVIDSON, MG, PHOS, CMP, LIPID, URIC #### [facility] [address] [address] [address] Sarmad Patino Cholesterol.total/C holesterol in HDL [Mass ratio] 3.2 {ratio} Normal [facility] Comment on above: Performed By: #### D DAVIDSON, MG, PHOS, CMP, LIPID, URIC #### [facility] [address] [place] [address] Dr. Sarmad Patino HDL NORMAL > or = 60 mg/dl - LO W CARDIOVASCULAR RISK <40 mg/dl - HIGH CARDIOVASCULAR RISK Normal [facility] Comment on above: Performed By: #### D DAVIDSON, MG, PHOS, CMP, LIPID, URIC #### [facility] [address] [address] [address] Sarmad Patino LDL CALC NORMAL SEE BELOW Normal [facility] Comment on above: Result Comment: <100 mg/dl OPTIMAL 100 - 129 mg/dl NEAR OR ABOVE OPTIMAL 130 - 159 mg/dl BORDERLINE HIGH 160 - 189 mg/dl HIGH >190 mg/dl VERY HIGH Performed By: #### D DAVIDSON, MG, PHOS, CMP, LIPID, URIC #### [facility] [address] [address] [address] Sarmad Patino Triglyceride [Mass/Vol] 161 mg/dL Critically high <=150 [facility] Comment on above: Performed By: #### D DAVIDSON, MG, PHOS, CMP, LIPID, URIC #### [facility] [address] [place] [address] Dr. Sarmad Patino VLDL CALC 32.2 mg/dL Normal [facility] Comment on above: Performed By: #### D DAVIDSON, MG, PHOS, CMP, LIPID, URIC #### [facility] [address] [place] [address] Dr. Sarmad Patino MAGNESIUMon 10-08-2021 Magnesium [Mass/Vol] 1.6 mg/dL Critically low 1.8-2.4 [facility] Comment on above: Performed By: #### U MAXI, LIPID, MG, CMP, DBIL, PHOS #### [facility] [address] [address] [address] Sarmad Patino PHOSPHORUSon 10-08-2021 Phosphate [Mass/Vol] 3.5 mg/dL Normal 2.6-4.7 [facility] Comment on above: Performed By: #### U MAXI, LIPID, MG, CMP, DBIL, PHOS #### [facility] [address] [address] [address] Sarmad Patino PROF 14(COMP METB)on 022 Albumin [Mass/Vol] 3.6 g/dL Normal 3.4-5.0 [facility] Comment on above: Performed By: #### D DAVIDSON, MG, PHOS, CMP, LIPID, URIC #### [facility] [address] [place] [address] Dr. Sarmad Patino Albumin/Globulin [Mass ratio] 0.9 {ratio} Normal [facility] Comment on above: Performed By: #### D DAVIDSON, MG, PHOS, CMP, LIPID, URIC #### [facility] [address] [address] [address] Sarmad Patino ALP [Catalytic activity/Vol] 150 U/L Critically high 46-116 [facility] Comment on above: Performed By: #### D DAVIDSON, MG, PHOS, CMP, LIPID, URIC #### [facility] [address] [place] [address] Dr. Sarmad Patino ALT [Catalytic activity/Vol] 21 U/L Normal 14-59 [facility] Comment on above: Performed By: #### D DAVIDSON, MG, PHOS, CMP, LIPID, URIC #### [facility] [address] [place] [address] Dr. Sarmad Patino Anion gap [Moles/Vol] 14.0 mmol/L Normal [facility] Comment on above: Performed By: #### D DAVIDSON, MG, PHOS, CMP, LIPID, URIC #### [facility] [address] [place] [address] Dr. Sarmad Patino AST [Catalytic activity/Vol] 13 U/L Critically low 15-37 [facility] Comment on above: Performed By: #### D DAVIDSON, MG, PHOS, CMP, LIPID, URIC #### [facility] [address] [place] [address] Dr. Sarmad Patino Bilirubin [Mass/Vol] 0.5 mg/dL Normal 0.2-1.0 [facility] Comment on above: Performed By: #### D DAVIDSON, MG, PHOS, CMP, LIPID, URIC #### [facility] [address] [place] [address] Dr. Sarmad Patino Calcium [Mass/Vol] 9.8 mg/dL Normal 8.5-10.1 [facility] Comment on above: Performed By: #### D DAVIDSON, MG, PHOS, CMP, LIPID, URIC #### [facility] [address] [address] [address] Sarmad Patino Chloride [Moles/Vol] 105 mmol/L Normal 98-107 [facility] Comment on above: Performed By: #### D DAVIDSON, MG, PHOS, CMP, LIPID, URIC #### [facility] [address] [place] [address] Dr. Sarmad Patino CO2 [Moles/Vol] 25.9 mmol/L Normal 21.0-32.0 [facility] Comment on above: Performed By: #### D DAVIDSON, MG, PHOS, CMP, LIPID, URIC #### [facility] [address] [place] [address] Dr. Sarmad Patino Creatinine [Mass/Vol] 0.81 mg/dL Normal 0.55-1.02 [facility] Comment on above: Performed By: #### D DAVIDSON, MG, PHOS, CMP, LIPID, URIC #### [facility] [address] [place] [address] Dr. Sarmad Patino EGFR-AF [place] >60 Normal >=60 [facility] Comment on above: Performed By: #### D DAVIDSON, MG, PHOS, CMP, LIPID, URIC #### [facility] [address] [place] [address] Dr. Sarmad Patino EGFR-NON AF [place] >60 Normal >=60 [facility] Comment on above: Performed By: #### D DAVIDSON, MG, PHOS, CMP, LIPID, URIC #### [facility] [address] [place] [address] Dr. Sarmad Patino Globulin (S) [Mass/Vol] 3.8 g/dL Normal [facility] Comment on above: Performed By: #### D DAVIDSON, MG, PHOS, CMP, LIPID, URIC #### [facility] [address] [address] [address] Sarmad Patino Glucose [Mass/Vol] 101 mg/dL Normal 74-106 [facility] Comment on above: Performed By: #### D DAVIDSON, MG, PHOS, CMP, LIPID, URIC #### [facility] [address] [place] [address] Dr. Sarmad Patino Potassium [Moles/Vol] 3.9 mmol/L Normal 3.5-5.1 [facility] Comment on above: Performed By: #### D DAVIDSON, MG, PHOS, CMP, LIPID, URIC #### [facility] [address] [address] [address] Sarmad Patino Protein [Mass/Vol] 7.4 g/dL Normal 6.4-8.2 [facility] Comment on above: Performed By: #### D DAVIDSON, MG, PHOS, CMP, LIPID, URIC #### [facility] [address] [address] [address] Sarmad Patino Sodium [Moles/Vol] 141 mmol/L Normal 136-145 [facility] Comment on above: Performed By: #### D DAVIDSON, MG, PHOS, CMP, LIPID, URIC #### [facility] [address] [place] [address] Dr. Sarmad Patino Urea nitrogen [Mass/Vol] 18.0 mg/dL Normal 7.0-18.0 [facility] Comment on above: Performed By: #### D DAVIDSON, MG, PHOS, CMP, LIPID, URIC #### [facility] [address] [address] [address] Sarmad Patino Urea nitrogen/Creatinine [Mass ratio] 22.2 mg/mg Normal [facility] Comment on above: Performed By: #### D DAVIDSON, MG, PHOS, CMP, LIPID, URIC #### [facility] [address] [place] [address] Dr. Sarmad Patino URIC ACID SERUMon 10-08-2021 Urate [Mass/Vol] 4.7 mg/dL Normal 2.6-6.0 [facility] Comment on above: Performed By: #### D DAVIDSON, MG, PHOS, CMP, LIPID, URIC #### [facility] [address] [place] [address] Dr. Sarmad CHRISTIEMU, WHOLE BLOODon EVEROLIMUS 8.0 ng/mL Normal 3.0-8.0 [facility] Comment on above: Result Comment: Perf ormed by LC-MS/MS technology. Performed By: #### U MAXI, LIPID, MG, CMP, DBIL, PHOS #### [facility] [address] [address] [address] Sarmad Patino FK506 (TACROLIMUS) WHOLE BLO ODon 09-14-2021 Tacrolimus (FK506), Blood 9.3 ng/mL Normal 2.0-20.0 [facility] Comment on above: Result Comment: Trou gh (immediately following transplant) 15.0 . Trough (steady state, 2 weeks or more after transplant): 3.0 - 8.0 . Performed by LC-MS/MS technology. Performed By: #### U MAXI, LIPID, MG, CMP, DBIL, PHOS #### [facility] [address] [place] [address] Dr. Sarmad Patino BK VIRUS PCR QUANTon 022 BKV DNA QUANT PCR PLASMA Negative Normal Negative [facility] Comment on above: Result Comment: No B K DNA detected. . The linear range of the assay is 22 - 100,000,000 IU/mL. Performed By: #### D DAVIDSON, MG, PHOS, CMP, LIPID, URIC #### [facility] [address] [place] [address] Dr. Sarmad Patino Log10 BKV DNA Plasma Normal [facility] Comment on above: Performed By: #### D DAVIDSON, MG, PHOS, CMP, LIPID, URIC #### [facility] [address] [place] [address] Dr. Sarmad Patino BILIRUBIN CONJUGATED (DIRECT )on 09-10-2021 BILI, CONJUGATED 0.1 mg/dL Normal 0.0-0.2 [facility] Comment on above: Performed By: #### D DAVIDSON, MG, PHOS, CMP, LIPID, URIC #### [facility] [address] [place] [address] Dr. Sarmad Patino CBC AUTO DIFFon 09-10-2021 BASO # 0.0 103/ul Normal 0.0-0.1 [facility] Comment on above: Performed By: #### D DAVIDSON, MG, PHOS, CMP, LIPID, URIC #### [facility] [address] [place] [address] Dr. Sarmad Patino Basophils/100 WBC (Bld) 0.1 % Critically low 0.2-2.0 [facility] Comment on above: Performed By: #### D DAVIDSON, MG, PHOS, CMP, LIPID, URIC #### [facility] [address] [place] [address] Dr. Sarmad Patino EO # 0.2 103/ul Normal 0.0-0.7 [facility] Comment on above: Performed By: #### D DAVIDSON, MG, PHOS, CMP, LIPID, URIC #### [facility] [address] [place] [address] Dr. Sarmad Patino Eosinophils/100 WBC (Bld) 2.3 % Normal 0.9-7.0 [facility] Comment on above: Performed By: #### D DAVIDSON, MG, PHOS, CMP, LIPID, URIC #### [facility] [address] [place] [address] Dr. Sarmad Patino Erythrocyte distribution width (RBC) [Ratio] 13.6 % Normal 11.0-15.0 [facility] Comment on above: Performed By: #### D DAVIDSON, MG, PHOS, CMP, LIPID, URIC #### [facility] [address] [place] [address] Dr. Sarmad Patino Hematocrit (Bld) [Volume fraction] 45.1 % Normal 36.0-48.0 [facility] Comment on above: Performed By: #### D DAVIDSON, MG, PHOS, CMP, LIPID, URIC #### [facility] [address] [place] [address] Dr. Sarmad Patino Hemoglobin (Bld) [Mass/Vol] 14.7 g/dL Normal 12.0-16.0 [facility] Comment on above: Performed By: #### D DAVIDSON, MG, PHOS, CMP, LIPID, URIC #### [facility] [address] [place] [address] Dr. Sarmad Patino IG # 0.03 10e3/ul Normal 0.00-0.03 [facility] Comment on above: Performed By: #### D DAVIDSON, MG, PHOS, CMP, LIPID, URIC #### [facility] [address] [address] [address] Sarmad Patino IG % 0.4 % Normal 0.0-0.5 [facility] Comment on above: Performed By: #### D DAVIDSON, MG, PHOS, CMP, LIPID, URIC #### [facility] [address] [place] [address] Dr. Sarmad Patino LYMPH # 1.3 103/ul Normal 1.2-3.8 [facility] Comment on above: Performed By: #### D DAVIDSON, MG, PHOS, CMP, LIPID, URIC #### [facility] [address] [place] [address] Dr. Sarmad Patino Lymphocytes/100 WBC (Bld) 18.9 % Critically low 20.5-60.0 [facility] Comment on above: Performed By: #### D DAVIDSON, MG, PHOS, CMP, LIPID, URIC #### [facility] [address] [place] [address] Dr. Sarmad Patino MANUAL DIFF REQ NO Normal [facility] Comment on above: Performed By: #### D DVAIDSON, MG, PHOS, CMP, LIPID, URIC #### [facility] [address] [place] [address] Dr. Sarmad Patino MCH (RBC) [Entitic mass] 29.0 pg Normal 26.7-34.0 [facility] Comment on above: Performed By: #### D DAVIDSON, MG, PHOS, CMP, LIPID, URIC #### [facility] [address] [place] [address] Dr. Sarmad Patino MCHC (RBC) [Mass/Vol] 32.6 g/dL Normal 29.9-35.2 [facility] Comment on above: Performed By: #### D DAVIDSON, MG, PHOS, CMP, LIPID, URIC #### [facility] [address] [place] [address] Dr. Sarmad Patino MCV (RBC) [Entitic vol] 89.0 fL Normal 81.0-99.0 [facility] Comment on above: Performed By: #### D DAVIDSON, MG, PHOS, CMP, LIPID, URIC #### [facility] [address] [place] [address] Dr. Sarmad Patino MONO # 0.8 103/ul Normal 0.3-0.8 [facility] Comment on above: Performed By: #### D DAVIDSON, MG, PHOS, CMP, LIPID, URIC #### [facility] [address] [place] [address] Dr. Sarmda Patino Monocytes/100 WBC (Bld) 11.9 % Normal 1.7-12.0 [facility] Comment on above: Performed By: #### D DAVIDSON, MG, PHOS, CMP, LIPID, URIC #### [facility] [address] [place] [address] Dr. Sarmad Patino NEUT # 4.6 103/ul Normal 1.4-6.5 [facility] Comment on above: Performed By: #### D DAVIDSON, MG, PHOS, CMP, LIPID, URIC #### [facility] [address] [place] [address] Dr. Sarmad Patino Neutrophils/100 WBC (Bld) 66.4 % Normal 43.0-75.0 [facility] Comment on above: Performed By: #### D DAVIDSON, MG, PHOS, CMP, LIPID, URIC #### [facility] [address] [place] [address] Dr. Sarmad Patino Platelet mean volume (Bld) [Entitic vol] 10.6 fL Normal 9.5-13.5 [facility] Comment on above: Performed By: #### D DAVIDSON, MG, PHOS, CMP, LIPID, URIC #### [facility] [address] [place] [address] Dr. Sarmad Patino PLT 233 103/ul Normal 150-450 [facility] Comment on above: Performed By: #### D DAVIDSON, MG, PHOS, CMP, LIPID, URIC #### [facility] [address] [place] [address] Dr. Sarmad Patino RBC 5.07 106/ul Normal 4.20-5.40 [facility] Comment on above: Performed By: #### D DAVIDSON, MG, PHOS, CMP, LIPID, URIC #### [facility] [address] [address] [address] Sarmad Patino WBC 6.9 103/ul Normal 4.0-11.0 [facility] Comment on above: Performed By: #### D DAVIDSON, MG, PHOS, CMP, LIPID, URIC #### [facility] [address] [address] [address] Sarmad Patino GLYCOHEMOGLOBIN A1Con 2021 ADA RECOMMENDATION SEE BELOW Normal [facility] Comment on above: Result Comment: ADA RECOMMENDED LIMIT 4.0 - 6.0 ADA THERAPEUTIC TARGET < 7.0 ACTION SUGGESTED > 7.0 Performed By: #### D DAVIDSON, MG, PHOS, CMP, LIPID, URIC #### [facility] [address] [address] [address] Sarmad Patino Glucose [Mass/Vol] 120 mg/dL Normal [facility] Comment on above: Performed By: #### D DAVIDSON, MG, PHOS, CMP, LIPID, URIC #### [facility] [address] [place] [address] Dr. Sarmad Patino HbA1c (Bld) [Mass fraction] 5.8 % Normal 4.5-6.2 [facility] Comment on above: Performed By: #### D DAVIDSON, MG, PHOS, CMP, LIPID, URIC #### [facility] [address] [place] [address] Dr. Sarmad Patino LIPID PROFILEon 09-10-2021 CHOL-HDL RATIO NORM SEE BELOW Normal [facility] Comment on above: Result Comment: 3.3 - 4.4 LOW RISK 4.4 - 7.1 AVERAGE RISK 7.1 - 11.0 MODERATE RISK >11.0 HIGH RISK Performed By: #### D DAVIDSON, MG, PHOS, CMP, LIPID, URIC #### [facility] [address] [place] [address] Dr. Sarmad Patino Cholesterol [Mass/Vol] 150 mg/dL Normal <=200 [facility] Comment on above: Performed By: #### D DAVIDSON, MG, PHOS, CMP, LIPID, URIC #### [facility] [address] [place] [address] Dr. Sarmad Patino Cholesterol in HDL [Mass/Vol] 47 mg/dL Normal 40-60 [facility] Comment on above: Performed By: #### D DAVIDSON, MG, PHOS, CMP, LIPID, URIC #### [facility] [address] [address] [address] Sarmad Patino Cholesterol in LDL [Mass/Vol] 78.4 mg/dL Normal [facility] Comment on above: Performed By: #### D DAVIDSON, MG, PHOS, CMP, LIPID, URIC #### [facility] [address] [address] [address] Sarmad Patino Cholesterol.total/C holesterol in HDL [Mass ratio] 3.2 {ratio} Normal [facility] Comment on above: Performed By: #### D DAVIDSON, MG, PHOS, CMP, LIPID, URIC #### [facility] [address] [place] [address] Dr. Sarmad Patino HDL NORMAL > or = 60 mg/dl - LO W CARDIOVASCULAR RISK <40 mg/dl - HIGH CARDIOVASCULAR RISK Normal [facility] Comment on above: Performed By: #### D DAVIDSON, MG, PHOS, CMP, LIPID, URIC #### [facility] [address] [address] [address] Sarmad Patino LDL CALC NORMAL SEE BELOW Normal [facility] Comment on above: Result Comment: <100 mg/dl OPTIMAL 100 - 129 mg/dl NEAR OR ABOVE OPTIMAL 130 - 159 mg/dl BORDERLINE HIGH 160 - 189 mg/dl HIGH >190 mg/dl VERY HIGH Performed By: #### D DAVIDSON, MG, PHOS, CMP, LIPID, URIC #### [facility] [address] [address] [address] Sarmad Patino Triglyceride [Mass/Vol] 123 mg/dL Normal <=150 [facility] Comment on above: Performed By: #### D DAVIDSON, MG, PHOS, CMP, LIPID, URIC #### [facility] [address] [address] [address] Sarmad Patino VLDL CALC 24.6 mg/dL Normal [facility] Comment on above: Performed By: #### D DAVIDSON, MG, PHOS, CMP, LIPID, URIC #### [facility] [address] [address] [address] Sarmad Patino MAGNESIUMon 09-10-2021 Magnesium [Mass/Vol] 1.5 mg/dL Critically low 1.8-2.4 [facility] Comment on above: Performed By: #### D DAVIDSON, MG, PHOS, CMP, LIPID, URIC #### [facility] [address] [address] [address] Sarmad Patino PHOSPHORUSon 09-10-2021 Phosphate [Mass/Vol] 3.8 mg/dL Normal 2.6-4.7 [facility] Comment on above: Performed By: #### D DAVIDSON, MG, PHOS, CMP, LIPID, URIC #### [facility] [address] [place] [address] Dr. Sarmad Patino PROF 14(COMP METB)on 022 Albumin [Mass/Vol] 3.4 g/dL Normal 3.4-5.0 [facility] Comment on above: Performed By: #### D DAVIDSON, MG, PHOS, CMP, LIPID, URIC #### [facility] [address] [place] [address] Dr. Sarmad Patino Albumin/Globulin [Mass ratio] 0.9 {ratio} Normal [facility] Comment on above: Performed By: #### D DAVIDSON, MG, PHOS, CMP, LIPID, URIC #### [facility] [address] [address] [address] Sarmad Patino ALP [Catalytic activity/Vol] 143 U/L Critically high 46-116 [facility] Comment on above: Performed By: #### D DAVIDSON, MG, PHOS, CMP, LIPID, URIC #### [facility] [address] [address] [address] Sarmad Patino ALT [Catalytic activity/Vol] 19 U/L Normal 14-59 [facility] Comment on above: Performed By: #### D DAVIDSON, MG, PHOS, CMP, LIPID, URIC #### [facility] [address] [address] [address] Sarmad Patino Anion gap [Moles/Vol] 13.4 mmol/L Normal [facility] Comment on above: Performed By: #### D DAVIDSON, MG, PHOS, CMP, LIPID, URIC #### [facility] [address] [place] [address] Dr. Sarmad Patino AST [Catalytic activity/Vol] 24 U/L Normal 15-37 [facility] Comment on above: Performed By: #### D DAVIDSON, MG, PHOS, CMP, LIPID, URIC #### [facility] [address] [address] [address] Sarmad Patino Bilirubin [Mass/Vol] 0.4 mg/dL Normal 0.2-1.0 [facility] Comment on above: Performed By: #### D DAVIDSON, MG, PHOS, CMP, LIPID, URIC #### [facility] [address] [place] [address] Dr. Sarmad Patino Calcium [Mass/Vol] 9.3 mg/dL Normal 8.5-10.1 [facility] Comment on above: Performed By: #### D DAVIDSON, MG, PHOS, CMP, LIPID, URIC #### [facility] [address] [place] [address] Dr. Sarmad Patino Chloride [Moles/Vol] 106 mmol/L Normal 98-107 [facility] Comment on above: Performed By: #### D DAVIDSON, MG, PHOS, CMP, LIPID, URIC #### [facility] [address] [place] [address] Dr. Sarmad Patino CO2 [Moles/Vol] 25.5 mmol/L Normal 21.0-32.0 [facility] Comment on above: Performed By: #### D DAVIDSON, MG, PHOS, CMP, LIPID, URIC #### [facility] [address] [address] [address] Sarmad Patino Creatinine [Mass/Vol] 0.85 mg/dL Normal 0.55-1.02 [facility] Comment on above: Performed By: #### D DAVIDSON, MG, PHOS, CMP, LIPID, URIC #### [facility] [address] [place] [address] Dr. Sarmad Patino EGFR-AF [place]IZ[place] >60 Normal >=60 [facility] Comment on above: Performed By: #### D DAVIDSON, MG, PHOS, CMP, LIPID, URIC #### [facility] [address] [address] [address] Sarmad Patino EGFR-NON AF [place] CITIZ[place] >60 Normal >=60 [facility] Comment on above: Performed By: #### D DAVIDSON, MG, PHOS, CMP, LIPID, URIC #### [facility] [address] [address] [address] Sarmad Patino Globulin (S) [Mass/Vol] 3.8 g/dL Normal [facility] Comment on above: Performed By: #### D DAVIDSON, MG, PHOS, CMP, LIPID, URIC #### [facility] [address] [address] [address] Sarmad Patino Glucose [Mass/Vol] 100 mg/dL Normal 74-106 [facility] Comment on above: Performed By: #### D DAVIDSON, MG, PHOS, CMP, LIPID, URIC #### [facility] [address] [address] [address] Sarmad Patino Potassium [Moles/Vol] 3.9 mmol/L Normal 3.5-5.1 [facility] Comment on above: Performed By: #### D DAVIDSON, MG, PHOS, CMP, LIPID, URIC #### [facility] [address] [address] [address] Sarmad Patino Protein [Mass/Vol] 7.2 g/dL Normal 6.4-8.2 [facility] Comment on above: Performed By: #### D DAVIDSON, MG, PHOS, CMP, LIPID, URIC #### [facility] [address] [address] [address] Sarmad Patino Sodium [Moles/Vol] 141 mmol/L Normal 136-145 [facility] Comment on above: Performed By: #### D DAVIDSON, MG, PHOS, CMP, LIPID, URIC #### [facility] [address] [address] [address] Sarmad Patino Urea nitrogen [Mass/Vol] 16.0 mg/dL Normal 7.0-18.0 [facility] Comment on above: Performed By: #### D DAVIDSON, MG, PHOS, CMP, LIPID, URIC #### [facility] [id number] Sarmad Patino Urea nitrogen/Creatinine [Mass ratio] 18.8 mg/mg Normal [facility] Comment on above: Performed By: #### D DAVIDSON, MG, PHOS, CMP, LIPID, URIC #### [facility] [address] [place], [place] [address] Dr. Sarmad Patino URIC ACID SERUMon 09-10-2021 Urate [Mass/Vol] 4.8 mg/dL Normal 2.6-6.0 [facility] Comment on above: Performed By: #### D DAVIDSON, MG, PHOS, CMP, LIPID, URIC #### [facility] [address] [place], [place] [address] Dr. Sarmad Patino Urinalysis - AUTOMATEDon Appearance (U) cloudy [employer] Other Bilirubin Ql (U) Negative [employer] Other Color (U) pale yellow [employer] Other Glucose Ql (U) Negative [employer] Other Hemoglobin Ql (U) moderate [employer] Other Ketones Ql (U) Negative [employer] Other Leukocyte esterase Test strip Ql (U) moderate [employer] Other Nitrite Ql (U) Negative [employer] Other pH (U) 7.0 [pH] [employer] Other Protein Ql (U) Negative [employer] Other Specific gravity (U) [Rel density] 1.010 [employer] Other Urobilinogen (U) [Mass/Vol] 0.2 mg/dL [employer] Other Urinalysis - AUTOMATED [employer] Other Urine Cultureon 08-14-2021 Urine Culture 100,000 [employer] Other Urine Culture <16 Susceptible [employer] Other Urine Culture >16 Resistant [employer] Other Urine Culture <4 Susceptible [employer] Other Urine Culture <2 Susceptible [employer] Other Urine Culture <1 Susceptible [employer] Other Urine Culture <0.5 Susceptible [employer] Other Urine Culture <32 Susceptible [employer] Other Urine Culture <2/38 Susceptible [employer] Other Bacteria identified Cx Nom (U) Reason for Exam Dysuria Urine ORGANISM: Klebsiella pneumoniae (O:KLEPNE) [place] Count 100,000 Aerobic SHYLA Charge (NUC86) --- [...] RESISTANT TO ALL B-LACTAM DRUGS. PERFORMED BY: [place] [address] PATHOLOGIST PERFORMANCE MANAGEMENT CONSULTANT LOVELY COLE M.D. Normal [facility] Comment on above: Performed By: #### C UU #### [facility] [address] [place] [address] *URINE CULTUREon 12-31-2017 Bacteria identified in Urine by Culture Clinical Report: (D) Specimen: URINE Collected: 12/31/2017 13:40 Status: Final Last Updated: 01/04/2018 12:38 ISO (Final) Diphtheroids >100,000 Cfu/Ml 2 Morphologies ISO (Final) Aerococcus urinae 50,000 - 100,000 Cfu/mL Result changed by RFISCHB on 01/04/2018 12:38. The previous result was: ISO (Prelim) Normal [facility] Comment on above: Performed By: #### 4 1000, 85118, 87087, 14226, 01945, 69000 ####[facility] CBC W/DIFFon 12-25-2017 ABS BASOPHILS 0.0 10*3/uL Normal 0.0-0.2 [facility] Comment on above: Performed By: #### 5 0103 ####[facility] ABS IMM GRANS 0.0 10*3/uL Normal 0.0-0.2 [facility] Comment on above: Performed By: #### 5 0103 ####[facility] ABS NEUTROPHILS 5.0 10*3/uL Normal 1.6-7.6 [facility] Comment on above: Performed By: #### 5 0103 ####[facility] [place] [address], [place] Basophils Auto #/vol (Bld) 0.1 % Normal 0.0-1.0 [facility] Comment on above: Performed By: #### 5 0103 ####[facility] [address], [place] Eosinophils Auto #/vol (Bld) 0.1 10*3/uL Normal 0.0-0.5 [facility] Comment on above: Performed By: #### 5 0103 ####[facility].[address] Eosinophils/100 WBC Auto (Bld) 1.6 % Normal 0.0-6.0 [facility] Comment on above: Performed By: #### 5 0103 ####[facility].[address] Erythrocyte distribution width Auto Ratio (RBC) 14.6 % Normal 11.5-15.0 [facility] Comment on above: Performed By: #### 5 0103 ####[facility].[address] Hematocrit Auto Volume Fraction (Bld) 44.9 % Normal 36.0-45.0 [facility] Comment on above: Performed By: #### 5 0103 ####[facility].[address] Hemoglobin mass conc (Bld) 14.9 g/dL Normal 12.0-15.0 [facility] Comment on above: Performed By: #### 5 3 ####[facility] IMMATURE GRANS 0.4 % Normal 0.0-1.0 [facility] Comment on above: Performed By: #### 3 ####[facility].[address] Lymphocytes Auto #/vol (Bld) 1.0 10*3/uL Low 1.2-4.0 [facility] Comment on above: Performed By: #### 102 ####[facility] Lymphocytes/100 WBC Auto (Bld) 14.9 % Low 20.0-45.0 [facility] Comment on above: Performed By: #### 102 ####[facility] MCH Auto Entitic mass (RBC) 28.8 pg Normal 27.0-33.0 [facility] Comment on above: Performed By: #### 102 ####[facility] MCHC Auto mass conc (RBC) 33.2 g/dL Normal 32.0-35.0 [facility] Comment on above: Performed By: #### 102 ####[facility] MCV Auto Entitic volume (RBC) 86.7 fL Normal 82.0-98.0 [facility] Comment on above: Performed By: #### 3 ####[facility] Monocytes Auto #/vol (Bld) 0.7 10*3/uL Normal 0.1-1.0 [facility] Comment on above: Performed By: #### 102 ####[facility] MONOS 10.6 % Normal 5.0-12.0 [facility] Comment on above: Performed By: #### 3 ####[facility].[address] Neutrophils/100 WBC Auto (Bld) 72.4 % High 40.0-72.0 [facility] Comment on above: Performed By: #### 5 0103 ####[facility].[address] Nucleated RBC/100 WBC Ratio (Bld) 0 % Normal 0-0 [facility] Comment on above: Performed By: #### 5 0103 ####[facility].[address] PLAT CNT 203 10*3/uL Normal 150-400 [facility] Comment on above: Performed By: #### 5 0103 ####[facility].[address] RBC Auto #/vol (Bld) 5.18 10*6/uL High 3.80-5.00 [facility] Comment on above: Performed By: #### 5 0103 ####[facility].[address] WBC Auto #/vol (Bld) 6.90 10*3/uL Normal 4.00-10.60 [facility] Comment on above: Performed By: #### 5 0103 ####[facility].[address] COMP METABOLIC PANELon 12-25 Albumin mass conc 4.3 g/dL Normal 3.5-5.7 [facility] Comment on above: Performed By: #### 4 1000, 97092, 90568, 19785, 75147, 35314 ####[facility].[address] ALKALINE PHOSPH 118 IU/L High 34-104 [facility] Comment on above: Performed By: #### 4 1000, 25671, 66121, 02529, 83410, 56333 ####[facility] [place] [address], [place] ALT enzyme act/vol 11 U/L Normal 7-52 [facility] Comment on above: Performed By: #### 4 1000, 16752, 76216, 97709, 42014, 70621 ####[facility] [place] [address], [place] AST enzyme act/vol 17 U/L Normal 13-39 [facility] Comment on above: Performed By: #### 4 1000, 65421, 06953, 48061, 45887, 67739 ####[facility] [place] [address], [place] Bilirubin mass conc 0.4 mg/dL Normal 0.3-1.0 [facility] Comment on above: Performed By: #### 4 1000, 31584, 82082, 38192, 64840, 12691 ####[facility] [place] [address], [place] Calcium mass conc 9.8 mg/dL Normal 8.6-10.3 [facility] Comment on above: Performed By: #### 4 1000, 12712, 28644, 18232, 06299, 20589 ####[facility] [place] [address], [place] Chloride molar conc 104 mmol/L Normal 98-107 [facility] Comment on above: Performed By: #### 4 1000, 42810, 29698, 32701, 15465, 75450 ####[facility] [place] [address], [place] CO2 molar conc 27 mmol/L Normal 21-31 [facility] Comment on above: Performed By: #### 4 1000, 64492, 01523, 73234, 15201, 18592 ####[facility] [place] [address], [place] Creatinine mass conc 0.76 mg/dL Normal 0.60-1.20 [facility] Comment on above: Performed By: #### 4 1000, 91920, 12218, 13597, 95233, 65783 ####[facility] [place] [address], [place] GFR/1.73 sq M predicted among blacks MDRD vol rate/area (S/P/Bld) mL/min/{1.73_m2} Normal >60 [facility] Comment on above: Performed By: #### 4 1000, 98788, 49337, 75837, 16183, 77163 ####[facility] [place] [address], [place] GFR/1.73 sq M predicted among non-blacks MDRD vol rate/area (S/P/Bld) mL/min/{1.73_m2} Normal >60 [facility] Comment on above: Performed By: #### 4 1000, 38589, 20186, 27956, 48732, 00345 ####[facility] [place] [address], [place] Glucose mass conc 94 mg/dL Normal 70-100 [facility] Comment on above: Performed By: #### 4 1000, 60480, 16025, 90653, 47037, 33756 ####[facility] [place] [address], [place] Potassium molar conc 3.9 mmol/L Normal 3.5-5.1 [facility] Comment on above: Performed By: #### 4 1000, 33744, 10308, 20838, 25484, 94128 ####[facility] [place] [address], [place] Protein mass conc 7.2 g/dL Normal 6.0-8.3 [facility] Comment on above: Performed By: #### 4 1000, 77333, 91343, 19547, 61927, 21024 ####[facility] [place] [address], [place] Sodium molar conc 140 mmol/L Normal 136-145 [facility] Comment on above: Performed By: #### 4 1000, 42096, 36929, 75136, 57572, 40549 ####[facility] [place] [address], [place] Urea nitrogen mass conc 15 mg/dL Normal 7-25 [facility] Comment on above: Performed By: #### 4 1000, 99668, 63305, 34913, 64712, 54427 ####[facility] DIRECT BILIon 12-25-2017 Bilirubin.direct mass conc 0.1 mg/dL Normal 0.0-0.2 [facility] Comment on above: Performed By: #### 4 1000, 57726, 81458, 86641, 15990, 68550 ####[facility] EVEROLIMUS 54019kk 8 EVEROLIMUS 4.7 ng/mL Normal [facility] Comment on above: Result Comment: Ther apeutic [...] the transplantcenter.Test developed and characteristics determined by [facility]. See Compliance Statement B: Verified Person/CSPerformed by [employer],[address] [place] [id number] ovu.Verified Person, Leonid Antonio MD - Lab. Director LIPID PROFILEon 12-25-2017 Cholesterol in HDL mass conc 51 mg/dL Normal 23-92 [facility] Comment on above: Result Comment: Slig ht variation in normal range could be due to gender and/or age.HDL CHOLESTEROL REFERENCE RANGE:20 years and older Cardiovascular Risk> or =60 mg/dL [id number] TO 59 mg/dL Low Risk<40 mg/dL High Risk Performed By: #### 4 5506, 53593, 66826, 91243, 45539, 39306 ####[facility].[address] Cholesterol in LDL mass conc 58 mg/dL Normal 0-130 [facility] Comment on above: Result Comment: LDL IS A CALCULATIONLDL IS ONLY VALID IF THE TRIG IS LESS THAN 400. Performed By: #### 4 5506, 96365, 67020, 05874, 59169, 77500 ####[facility] [place] [address], [place] Cholesterol mass conc 122 mg/dL Normal 120-200 [facility] Comment on above: Result Comment: CHOL ESTEROL REFERENCE RANGE:20 YEARS AND OLDER CARDIOVASCULAR RISKLess than 200 mg/dl Low Klub465 to 239 mg/dl Borderline Mrdx528 mg/dl and greater High Risk Performed By: #### 4 5506, 40131, 84581, 40432, 87160, 46068 ####[facility] [place] [address], [place] Cholesterol.total/C holesterol in HDL mass ratio 2.4 {ratio} Normal .0-4.5 [facility] Comment on above: Performed By: #### 4 5506, 42188, 99063, 29532, 43149, 91810 ####[facility] NON-HDL CHOLESTEROL 71 mg/dL Normal [facility] Comment on above: Performed By: #### 4 5506, 04273, 81344, 83777, 03964, 71002 ####[facility].[address] Triglyceride mass conc 65 mg/dL Normal 40-149 [facility] Comment on above: Result Comment: TRIG LYCERIDE REFERENCE RANGE:20 YEARS AND OLDER CARDIOVASCULAR RISKLESS THAN 150 mg/dl LOW [id number] TO 199 mg/dl BORDERLINE BMZI445 mg/dl AND GREATER HIGH RISK Performed By: #### 4 5506, 87904, 04922, 68424, 91923, 20793 ####[facility].[address] VLDL CHOL 13 mg/dL Normal 0-40 [facility] Comment on above: Performed By: #### 4 5506, 48115, 11154, 86726, 91027, 37367 ####[facility] [place] [address], [place] MAGNESIUM BLOODon 12-25-2017 Magnesium mass conc 1.8 mg/dL Low 1.9-2.7 [facility] Comment on above: Performed By: #### 4 1000, 57678, 00108, 44709, 31630, 16321 ####[facility] [place] [address], [place] PHOSPHORUS BLOODon 8 Phosphate mass conc 3.4 mg/dL Normal 2.5-5.0 [facility] Comment on above: Performed By: #### 4 5506, 37122, 82885, 85122, 82116, 52663 ####[facility] TACROLIMUSon 12-25-2017 Tacrolimus mass conc (Bld) 6.4 ng/mL Normal 5.0-20.0 [facility] Comment on above: Result Comment: The [employer] Tacrolimus assay is a delayed one-step immunoassayfor the quantitative determination of tacrolimus in human whole bloodusing the chemiluminescent microparticle immunoassay (CMIA) technologywith flexible assay protocols, referred to as Chemiflex. Performed By: #### 4 1000, 25097, 97513, 06582, 98702, 47020 ####[facility] URIC ACID BLOODon 12-25-2017 Urate mass conc 4.7 mg/dL Normal 2.3-6.6 [facility] Comment on above: Performed By: #### 4 5506, 97146, 87506, 16165, 91183, 38879 ####[facility] CBC W/DIFFon 10-30-2017 ABS BASOPHILS 0.0 10*3/uL Normal 0.0-0.2 [facility] Comment on above: Performed By: #### 4 6447, 50509 ####[facility] ABS IMM GRANS 0.0 10*3/uL Normal 0.0-0.2 [facility] Comment on above: Performed By: #### 4 6447, 47905 ####[facility] ABS NEUTROPHILS 4.9 10*3/uL Normal 1.6-7.6 [facility] Comment on above: Performed By: #### 4 0871, 66363 ####[facility] [place] [address], [place] Basophils Auto #/vol (Bld) 0.1 % Normal 0.0-1.0 [facility] Comment on above: Performed By: #### 6 5825, 71987 ####[facility] [address], [place] Eosinophils Auto #/vol (Bld) 0.1 10*3/uL Normal 0.0-0.5 [facility] Comment on above: Performed By: #### 4 5150, 89549 ####[facility].[address] Eosinophils/100 WBC Auto (Bld) 1.4 % Normal 0.0-6.0 [facility] Comment on above: Performed By: #### 1 9169, 19185 ####[facility].[address] Erythrocyte distribution width Auto Ratio (RBC) 14.6 % Normal 11.5-15.0 [facility] Comment on above: Performed By: #### 8 4609, 98869 ####[facility].[address] Hematocrit Auto Volume Fraction (Bld) 46.8 % High 36.0-45.0 [facility] Comment on above: Performed By: #### 3 7609, 28591 ####[facility].[address] Hemoglobin mass conc (Bld) 15.1 g/dL High 12.0-15.0 [facility] Comment on above: Performed By: #### 4 0830, 26630 ####[facility] [place] [address], [place] IMMATURE GRANS 0.4 % Normal 0.0-1.0 [facility] Comment on above: Performed By: #### 4 6807, 01896 ####[facility].[address] Lymphocytes Auto #/vol (Bld) 1.2 10*3/uL Normal 1.2-4.0 [facility] Comment on above: Performed By: #### 4 4705, 02313 ####[facility].[address] Lymphocytes/100 WBC Auto (Bld) 16.6 % Low 20.0-45.0 [facility] Comment on above: Performed By: #### 4 0462, 40683 ####[facility].[address] MCH Auto Entitic mass (RBC) 29.0 pg Normal 27.0-33.0 [facility] Comment on above: Performed By: #### 4 9138, 58408 ####[facility].[address] MCHC Auto mass conc (RBC) 32.3 g/dL Normal 32.0-35.0 [facility] Comment on above: Performed By: #### 4 8986, 48322 ####[place] [address] [facility].[address] MCV Auto Entitic volume (RBC) 89.8 fL Normal 82.0-98.0 [facility] Comment on above: Performed By: #### 4 6826, 86485 ####[facility].[address] Monocytes Auto #/vol (Bld) 0.8 10*3/uL Normal 0.1-1.0 [facility] Comment on above: Performed By: #### 4 6922, 37902 ####[facility].[address] MONOS 11.9 % Normal 5.0-12.0 [facility] Comment on above: Performed By: #### 4 6447, 95037 ####[facility] Neutrophils/100 WBC Auto (Bld) 69.6 % Normal 40.0-72.0 [facility] Comment on above: Performed By: #### 4 6447, 87834 ####[facility] Nucleated RBC/100 WBC Ratio (Bld) 0 % Normal 0-0 [facility] Comment on above: Performed By: #### 4 6447, 81048 ####[place] [address] PLAT CNT 200 10*3/uL Normal 150-400 [facility] Comment on above: Performed By: #### 4 6447, 73798 ####[facility] RBC Auto #/vol (Bld) 5.21 10*6/uL High 3.80-5.00 [facility] Comment on above: Performed By: #### 4 6447, 43886 ####[facility] WBC Auto #/vol (Bld) 7.04 10*3/uL Normal 4.00-10.60 [facility] Comment on above: Performed By: #### 4 6447, 86998 ####[facility] COMP METABOLIC PANELon 10-30 Albumin mass conc 4.1 g/dL Normal 3.5-5.7 [facility] Comment on above: Performed By: #### 4 6447, 40281 ####[facility] [place] [address], [place] ALKALINE PHOSPH 114 IU/L High 34-104 [facility] Comment on above: Performed By: #### 4 3485, 79974 ####[facility] [place] [address], [place] ALT enzyme act/vol 16 U/L Normal 7-52 [facility] Comment on above: Performed By: #### 4 8785, 30286 ####[facility] [place] [address], [place] AST enzyme act/vol 18 U/L Normal 13-39 [facility] Comment on above: Performed By: #### 0 7941, 22583 ####[place] [address] [place] [address], [place] Bilirubin mass conc 0.4 mg/dL Normal 0.3-1.0 [facility] Comment on above: Performed By: #### 3 6496, 61337 ####[facility] [place] [address], [place] Calcium mass conc 9.7 mg/dL Normal 8.6-10.3 [facility] Comment on above: Performed By: #### 3 2325, 35652 ####[facility] [place] [address], [place] Chloride molar conc 105 mmol/L Normal 98-107 [facility] Comment on above: Performed By: #### 3 6825, 97971 ####[facility] [place] [address], [place] CO2 molar conc 28 mmol/L Normal 21-31 [facility] Comment on above: Performed By: #### 4 9051, 30816 ####[facility] [place] [address], [place] Creatinine mass conc 0.82 mg/dL Normal 0.60-1.20 [facility] Comment on above: Performed By: #### 5 8885, 63911 ####[facility] [facility] [place] [address], [place] GFR/1.73 sq M predicted among blacks MDRD vol rate/area (S/P/Bld) mL/min/{1.73_m2} Normal >60 [facility] Comment on above: Performed By: #### 3 6611, 39710 ####[facility] [facility] [place] [address], [place] GFR/1.73 sq M predicted among non-blacks MDRD vol rate/area (S/P/Bld) mL/min/{1.73_m2} Normal >60 [facility] Comment on above: Performed By: #### 4 0002, 98425 ####[facility] [facility] [place] [address], [place] Glucose mass conc 90 mg/dL Normal 70-100 [facility] Comment on above: Performed By: #### 4 4159, 05149 ####[facility] [facility] [place] [address], [place] Potassium molar conc 4.1 mmol/L Normal 3.5-5.1 [facility] Comment on above: Performed By: #### 1 4791, 19362 ####[facility] [facility] [place] [address], [place] Protein mass conc 6.9 g/dL Normal 6.0-8.3 [facility] Comment on above: Performed By: #### 0 3510, 40676 ####[facility] [facility].[place] [id number], [place] Sodium molar conc 138 mmol/L Normal 136-145 [facility] Comment on above: Performed By: #### 1 4225, 85645 ####[facility] [facility] [place] [address], [place] Urea nitrogen mass conc 16 mg/dL Normal 7-25 [facility] Comment on above: Performed By: #### 4 6447, 96397 ####[facility] [facility] [place] [address], [place] DIRECT BILIon 10-30-2017 Bilirubin.direct mass conc 0.0 mg/dL Normal 0.0-0.2 [facility] Comment on above: Performed By: #### 4 5506, 18997, 35445, 48922, 17465, 55120 ####[facility] [facility].[address] EVEROLIMUS 74563yl 8 EVEROLIMUS 6.0 ng/mL Normal [facility] Comment on above: Result Comment: Ther apeutic [...] the transplantcenter.Test developed and characteristics determined by [facility]. See Compliance Statement B: Verified Person/CSPerformed by [employer],[address] [place] [address] woa.Verified Person, Leonid Antonio MD - Lab. Director LIPID PROFILEon 10-30-2017 Cholesterol in HDL mass conc 50 mg/dL Normal 23-92 [facility] Comment on above: Result Comment: Slig ht variation in normal range could be due to gender and/or age.HDL CHOLESTEROL REFERENCE RANGE:20 years and older Cardiovascular Risk> or =60 mg/dL Wtlfndtsk28 TO 59 mg/dL Low Risk<40 mg/dL High Risk Performed By: #### 4 5506, 11673, 44952, 01344, 91378, 50490 ####[facility] [place] [address], [place] Cholesterol in LDL mass conc 85 mg/dL Normal 0-130 [facility] Comment on above: Result Comment: LDL IS A CALCULATIONLDL IS ONLY VALID IF THE TRIG IS LESS THAN 400. Performed By: #### 4 5506, 00775, 49756, 21627, 87096, 02986 ####[facility] [place] [address], [place] Cholesterol mass conc 152 mg/dL Normal 120-200 [facility] Comment on above: Result Comment: CHOL ESTEROL REFERENCE RANGE:20 YEARS AND OLDER CARDIOVASCULAR RISKLess than 200 mg/dl Low Txel740 to 239 mg/dl Borderline Bftc754 mg/dl and greater High Risk Performed By: #### 4 5506, 73456, 22475, 26732, 95463, 69262 ####[facility] [place] [address], [place] Cholesterol.total/C holesterol in HDL mass ratio 3.0 {ratio} Normal .0-4.5 [facility] Comment on above: Performed By: #### 4 5506, 25795, 65377, 51745, 59208, 25983 ####[facility] [place] [address], [place] NON-HDL CHOLESTEROL 102 mg/dL Normal [facility] Comment on above: Performed By: #### 4 5506, 31281, 37241, 42191, 52292, 30117 ####[facility] Triglyceride mass conc 87 mg/dL Normal 40-149 [facility] Comment on above: Result Comment: TRIG LYCERIDE REFERENCE RANGE:20 YEARS AND OLDER CARDIOVASCULAR RISKLESS THAN 150 mg/dl LOW [id number] TO 199 mg/dl BORDERLINE KNUK926 mg/dl AND GREATER HIGH RISK Performed By: #### 4 5506, 22905, 56627, 70552, 39179, 65427 ####[facility] VLDL CHOL 17 mg/dL Normal 0-40 [facility] Comment on above: Performed By: #### 4 5506, 96943, 59045, 01165, 00205, 31700 ####[facility] MAGNESIUM BLOODon 10-30-2017 Magnesium mass conc 1.9 mg/dL Normal 1.9-2.7 [facility] Comment on above: Performed By: #### 4 5506, 36529, 50244, 99464, 19008, 74793 ####[facility] [place] [address], [place] PHOSPHORUS BLOODon 8 Phosphate mass conc 3.7 mg/dL Normal 2.5-5.0 [facility] Comment on above: Performed By: #### 4 5506, 43513, 45966, 60350, 89686, 23839 ####[facility] TACROLIMUSon 10-30-2017 Tacrolimus mass conc (Bld) 7.1 ng/mL Normal 5.0-20.0 [facility] Comment on above: Result Comment: The [facility] Tacrolimus assay is a delayed one-step immunoassayfor the quantitative determination of tacrolimus in human whole bloodusing the chemiluminescent microparticle immunoassay (CMIA) technologywith flexible assay protocols, referred to as Chemiflex. Performed By: #### 9 9914 ####[facility] URIC ACID BLOODon 10-30-2017 Urate mass conc 4.6 mg/dL Normal 2.3-6.6 [facility] Comment on above: Performed By: #### 4 8636, 35787 ####[place] [address] [address] CBC W/DIFFon 10-23-2017 ABS BASOPHILS 0.0 10*3/uL Normal 0.0-0.2 [facility] Comment on above: Performed By: #### 4 1425, 21690 ####[place] [address] [address] ABS IMM GRANS 0.1 10*3/uL Normal 0.0-0.2 [facility] Comment on above: Performed By: #### 4 0798, 63848 ####[place] [address] [address] ABS NEUTROPHILS 5.8 10*3/uL Normal 1.6-7.6 [facility] Comment on above: Performed By: #### 4 5847, 33904 ####[place] [address] [address] Basophils Auto #/vol (Bld) 0.2 % Normal 0.0-1.0 [facility] Comment on above: Performed By: #### 4 5288, 47342 ####[place] [address] [address] Eosinophils Auto #/vol (Bld) 0.1 10*3/uL Normal 0.0-0.5 [facility] Comment on above: Performed By: #### 4 3788, 91022 ####[facility] Eosinophils/100 WBC Auto (Bld) 0.7 % Normal 0.0-6.0 [facility] Comment on above: Performed By: #### 4 6224, 96587 ####[address] Erythrocyte distribution width Auto Ratio (RBC) 14.6 % Normal 11.5-15.0 [facility] Comment on above: Performed By: #### 4 2691, 00445 ####[address] Hematocrit Auto Volume Fraction (Bld) 44.2 % Normal 36.0-45.0 [facility] Comment on above: Performed By: #### 4 1442, 82830 ####[address] Hemoglobin mass conc (Bld) 14.2 g/dL Normal 12.0-15.0 [facility] Comment on above: Performed By: #### 4 2517, 39126 ####[address] IMMATURE GRANS 1.4 % High 0.0-1.0 [facility] Comment on above: Performed By: #### 6 9222, 84036 ####[address] Lymphocytes Auto #/vol (Bld) 2.1 10*3/uL Normal 1.2-4.0 [facility] Comment on above: Performed By: #### 4 6302, 82439 ####[address] Lymphocytes/100 WBC Auto (Bld) 22.5 % Normal 20.0-45.0 [facility] Comment on above: Performed By: #### 8 5324, 35491 ####[facility] MCH Auto Entitic mass (RBC) 28.5 pg Normal 27.0-33.0 [facility] Comment on above: Performed By: #### 4 4978, 75888 ####[facility] MCHC Auto mass conc (RBC) 32.1 g/dL Normal 32.0-35.0 [facility] Comment on above: Performed By: #### 4 3596, 86705 ####[facility] [facility].[address] MCV Auto Entitic volume (RBC) 88.8 fL Normal 82.0-98.0 [facility] Comment on above: Performed By: #### 4 5651, 30370 ####[facility] [facility].[address] Monocytes Auto #/vol (Bld) 1.1 10*3/uL High 0.1-1.0 [facility] Comment on above: Performed By: #### 4 4542, 56974 ####[facility] [facility].[address] MONOS 12.0 % Normal 5.0-12.0 [facility] Comment on above: Performed By: #### 4 7639, 95814 ####[facility] [facility].[address] Neutrophils/100 WBC Auto (Bld) 63.2 % Normal 40.0-72.0 [facility] Comment on above: Performed By: #### 4 7572, 89975 ####[facility] Nucleated RBC/100 WBC Ratio (Bld) 0 % Normal 0-0 [facility] Comment on above: Performed By: #### 4 6447, 95557 ####[facility] [place] [address], [place] PLAT CNT 241 10*3/uL Normal 150-400 [facility] Comment on above: Performed By: #### 4 6447, 96687 ####[facility] [facility] [address], [place] RBC Auto #/vol (Bld) 4.98 10*6/uL Normal 3.80-5.00 [facility] Comment on above: Performed By: #### 4 6447, 88779 ####[facility] [facility].[address] WBC Auto #/vol (Bld) 9.14 10*3/uL Normal 4.00-10.60 [facility] Comment on above: Performed By: #### 4 6447, 86200 ####[facility] [facility].[address] COMP METABOLIC PANELon 10-23 Albumin mass conc 3.8 g/dL Normal 3.5-5.7 [facility] Comment on above: Performed By: #### 4 6447, 88969 ####[facility] [facility].[address] ALKALINE PHOSPH 96 IU/L Normal 34-104 [facility] Comment on above: Performed By: #### 4 6447, 50834 ####[facility] [facility].[address] ALT enzyme act/vol 15 U/L Normal 7-52 [facility] Comment on above: Performed By: #### 4 6447, 87905 ####[facility] AST enzyme act/vol 13 U/L Normal 13-39 The [facility] Comment on above: Performed By: #### 4 3847, 25257 ####[facility] [place] [address], [place] Bilirubin mass conc 0.4 mg/dL Normal 0.3-1.0 [facility] Comment on above: Performed By: #### 4 6447, 94920 ####[facility] [place] [address], [place] Calcium mass conc 9.2 mg/dL Normal 8.6-10.3 [facility] Comment on above: Performed By: #### 4 2080, 16205 ####[facility] [place] [address], [place] Chloride molar conc 102 mmol/L Normal 98-107 [facility] Comment on above: Performed By: #### 4 1953, 87617 ####[facility] [place] [address], [place] CO2 molar conc 29 mmol/L Normal 21-31 [facility] Comment on above: Performed By: #### 4 3108, 94601 ####[facility] [place] [address], [place] Creatinine mass conc 0.80 mg/dL Normal 0.60-1.20 [facility] Comment on above: Performed By: #### 3 4947, 60472 ####[facility] [place] [address], [place] GFR/1.73 sq M predicted among blacks MDRD vol rate/area (S/P/Bld) mL/min/{1.73_m2} Normal >60 [facility] Comment on above: Performed By: #### 4 6350, 17705 ####[facility] [place] [address], [place] GFR/1.73 sq M predicted among non-blacks MDRD vol rate/area (S/P/Bld) mL/min/{1.73_m2} Normal >60 [facility] Comment on above: Performed By: #### 4 3274, 23469 ####[facility] [place] [address], [place] Glucose mass conc 85 mg/dL Normal 70-100 [facility] Comment on above: Performed By: #### 4 5065, 88890 ####[facility] Potassium molar conc 3.3 mmol/L Low 3.5-5.1 [facility] Comment on above: Performed By: #### 4 8985, 69764 ####[facility] Protein mass conc 6.5 g/dL Normal 6.0-8.3 [facility] Comment on above: Performed By: #### 4 4026, 46459 ####[facility] Sodium molar conc 139 mmol/L Normal 136-145 [facility] Comment on above: Performed By: #### 4 8037, 50324 ####[facility] Urea nitrogen mass conc 18 mg/dL Normal 7-25 [facility] Comment on above: Performed By: #### 4 2742, 97215 ####[facility] [place] [address], [place] DIRECT BILIon 10-23-2017 Bilirubin.direct mass conc 0.1 mg/dL Normal 0.0-0.2 [facility] Comment on above: Performed By: #### 4 5266, 02104 ####[facility] [place] [address], [place] EVEROLIMUS 32622fr 8 EVEROLIMUS 4.0 ng/mL Normal [facility] Comment on above: Result Comment: Ther apeutic [...] the transplantcenter.Test developed and characteristics determined by [facility]. See Compliance Statement B: [employer]/CSPerformed by [employer],[address] [place] [id number] vrl.Verified Person, Leonid Antonio MD - Lab. Director LIPID PROFILEon 10-23-2017 Cholesterol in HDL mass conc 53 mg/dL Normal 23-92 [facility] Comment on above: Result Comment: Slig ht variation in normal range could be due to gender and/or age.HDL CHOLESTEROL REFERENCE RANGE:20 years and older Cardiovascular Risk> or =60 mg/dL Npyjnepgj10 TO 59 mg/dL Low Risk<40 mg/dL High Risk Performed By: #### 4 4592, 61708 ####[facility] [place] [address], [place] Cholesterol in LDL mass conc 68 mg/dL Normal 0-130 [facility] Comment on above: Result Comment: LDL IS A CALCULATIONLDL IS ONLY VALID IF THE TRIG IS LESS THAN 400. Performed By: #### 4 7560, 71479 ####[facility] [place] [address], [place] Cholesterol mass conc 135 mg/dL Normal 120-200 [facility] Comment on above: Result Comment: CHOL ESTEROL REFERENCE RANGE:20 YEARS AND OLDER CARDIOVASCULAR RISKLess than 200 mg/dl Low Iurj484 to 239 mg/dl Borderline Hnju651 mg/dl and greater High Risk Performed By: #### 4 7132, 77968 ####[facility] [place] [address], [place] Cholesterol.total/C holesterol in HDL mass ratio 2.5 {ratio} Normal .0-4.5 [facility] Comment on above: Performed By: #### 4 7232, 12539 ####[facility].[address] NON-HDL CHOLESTEROL 82 mg/dL Normal [facility] Comment on above: Performed By: #### 4 2658, 09534 ####[facility] [facility] [place] [address], [place] Triglyceride mass conc 72 mg/dL Normal 40-149 [facility] Comment on above: Result Comment: TRIG LYCERIDE REFERENCE RANGE:20 YEARS AND OLDER CARDIOVASCULAR RISKLESS THAN 150 mg/dl LOW [id number] TO 199 mg/dl BORDERLINE PRBU119 mg/dl AND GREATER HIGH RISK Performed By: #### 4 8290, 06889 ####[facility] [facility] [address], [place] VLDL CHOL 14 mg/dL Normal 0-40 [facility] Comment on above: Performed By: #### 0 8669, 23480 ####[facility] [place] [address], [place] MAGNESIUM BLOODon 10-23-2017 Magnesium mass conc 1.8 mg/dL Low 1.9-2.7 [facility] Comment on above: Performed By: #### 7 4228, 35090 ####[facility] [facility].[address] PHOSPHORUS BLOODon 8 Phosphate mass conc 3.7 mg/dL Normal 2.5-5.0 [facility] Comment on above: Performed By: #### 4 6447, 32734 ####[address] TACROLIMUSon 10-23-2017 Tacrolimus mass conc (Bld) 2.6 ng/mL Low 5.0-20.0 [facility] Comment on above: Result Comment: The [facility] Tacrolimus assay is a delayed one-step immunoassayfor the quantitative determination of tacrolimus in human whole bloodusing the chemiluminescent microparticle immunoassay (CMIA) technologywith flexible assay protocols, referred to as Chemiflex. Performed By: #### 4 6447, 57820 ####[address] URIC ACID BLOODon 10-23-2017 Urate mass conc 4.3 mg/dL Normal 2.3-6.6 [facility] Comment on above: Performed By: #### 4 6447, 31160 ####[address] CBC W/DIFFon 09-25-2017 ABS BASOPHILS 0.0 10*3/uL Normal 0.0-0.2 [facility] Comment on above: Performed By: #### 4 1000, 43445, 27424, 01651, 74800, 98146 ####[address] ABS IMM GRANS 0.0 10*3/uL Normal 0.0-0.2 [facility] Comment on above: Performed By: #### 4 1000, 17716, 27084, 64570, 31029, 69048 ####[address] [place] [address], [place] ABS NEUTROPHILS 4.4 10*3/uL Normal 1.6-7.6 [facility] Comment on above: Performed By: #### 4 1000, 60752, 21613, 57511, 69551, 99271 ####[address] Basophils Auto #/vol (Bld) 0.2 % Normal 0.0-1.0 [facility] Comment on above: Performed By: #### 4 1000, 84220, 94351, 08569, 09847, 60696 ####[address] Eosinophils Auto #/vol (Bld) 0.1 10*3/uL Normal 0.0-0.5 [facility] Comment on above: Performed By: #### 4 1000, 58580, 10433, 03560, 77406, 17217 ####[place] [address] [address] Eosinophils/100 WBC Auto (Bld) 2.2 % Normal 0.0-6.0 [facility] Comment on above: Performed By: #### 4 1000, 51368, 59410, 70639, 23799, 05051 ####[address] Erythrocyte distribution width Auto Ratio (RBC) 14.0 % Normal 11.5-15.0 [facility] Comment on above: Performed By: #### 4 1000, 92657, 28015, 28166, 25790, 83889 ####[address] Hematocrit Auto Volume Fraction (Bld) 44.8 % Normal 36.0-45.0 [facility] Comment on above: Performed By: #### 4 1000, 45292, 48371, 42117, 04849, 58648 ####[facility] [facility].[address] Hemoglobin mass conc (Bld) 14.5 g/dL Normal 12.0-15.0 [facility] Comment on above: Performed By: #### 4 1000, 67839, 63470, 87911, 72922, 91694 ####[facility] IMMATURE GRANS 0.3 % Normal 0.0-1.0 [facility] Comment on above: Performed By: #### 4 1000, 23431, 38724, 47441, 40232, 08605 ####[place] [address] Lymphocytes Auto #/vol (Bld) 1.1 10*3/uL Low 1.2-4.0 [facility] Comment on above: Performed By: #### 4 1000, 40676, 04600, 07651, 08699, 97672 ####[place] [address] [address] Lymphocytes/100 WBC Auto (Bld) 17.0 % Low 20.0-45.0 [facility] Comment on above: Performed By: #### 4 1000, 19183, 03347, 66277, 60062, 23522 ####[facility] [facility].[address] MCH Auto Entitic mass (RBC) 28.6 pg Normal 27.0-33.0 [facility] Comment on above: Performed By: #### 4 1000, 73104, 87533, 36190, 93778, 53102 ####[address] MCHC Auto mass conc (RBC) 32.4 g/dL Normal 32.0-35.0 [facility] Comment on above: Performed By: #### 4 1000, 52728, 14904, 14546, 52722, 11468 ####[facility] MCV Auto Entitic volume (RBC) 88.4 fL Normal 82.0-98.0 [facility] Comment on above: Performed By: #### 4 1000, 27251, 08673, 83706, 18582, 21681 ####[facility] Monocytes Auto #/vol (Bld) 0.7 10*3/uL Normal 0.1-1.0 [facility] Comment on above: Performed By: #### 4 1000, 87653, 33228, 15782, 67087, 87736 ####[facility].[address] MONOS 11.5 % Normal 5.0-12.0 [facility] Comment on above: Performed By: #### 4 1000, 45861, 62295, 56147, 01012, 24941 ####[facility].[address] Neutrophils/100 WBC Auto (Bld) 68.8 % Normal 40.0-72.0 [facility] Comment on above: Performed By: #### 4 1000, 54894, 27034, 15989, 42827, 64165 ####[facility] Nucleated RBC/100 WBC Ratio (Bld) 0 % Normal 0-0 [facility] Comment on above: Performed By: #### 4 1000, 39738, 12854, 82205, 01665, 77547 ####[facility] PLAT CNT 212 10*3/uL Normal 150-400 [facility] Comment on above: Performed By: #### 4 1000, 73218, 41792, 75251, 18694, 49941 ####[facility] RBC Auto #/vol (Bld) 5.07 10*6/uL High 3.80-5.00 [facility] Comment on above: Performed By: #### 4 1000, 24323, 32098, 81908, 07426, 32411 ####[facility] WBC Auto #/vol (Bld) 6.34 10*3/uL Normal 4.00-10.60 [facility] Comment on above: Performed By: #### 4 1000, 05803, 51827, 40253, 57206, 82994 ####[facility] [facility].[address] COMP METABOLIC PANELon 09-25 Albumin mass conc 4.0 g/dL Normal 3.5-5.7 [facility] Comment on above: Performed By: #### 4 9447, 60703 ####[facility].[address] ALKALINE PHOSPH 112 IU/L High 34-104 [facility] Comment on above: Performed By: #### 4 6447, 79486 ####[facility] ALT enzyme act/vol 11 U/L Normal 7-52 [facility] Comment on above: Performed By: #### 4 7847, 32894 ####[facility] AST enzyme act/vol 17 U/L Normal 13-39 [facility] Comment on above: Performed By: #### 4 0356, 56335 ####[facility] [place] [address], [place] Bilirubin mass conc 0.5 mg/dL Normal 0.3-1.0 [facility] Comment on above: Performed By: #### 4 3784, 99715 ####[facility] [place] [address], [place] Calcium mass conc 9.6 mg/dL Normal 8.6-10.3 [facility] Comment on above: Performed By: #### 8 4095, 88883 ####[facility] [place] [address], [place] Chloride molar conc 104 mmol/L Normal 98-107 [facility] Comment on above: Performed By: #### 4 0478, 50711 ####[facility] [place] [address], [place] CO2 molar conc 28 mmol/L Normal 21-31 [facility] Comment on above: Performed By: #### 8 1185, 09742 ####[facility] [place] [address], [place] Creatinine mass conc 0.83 mg/dL Normal 0.60-1.20 [facility] Comment on above: Performed By: #### 4 8012, 84858 ####[facility] [id number], [place] GFR/1.73 sq M predicted among blacks MDRD vol rate/area (S/P/Bld) mL/min/{1.73_m2} Normal >60 [facility] Comment on above: Performed By: #### 4 5573, 61431 ####[facility] [address], [place] GFR/1.73 sq M predicted among non-blacks MDRD vol rate/area (S/P/Bld) mL/min/{1.73_m2} Normal >60 The [facility] Comment on above: Performed By: #### 4 6447, 40903 ####[facility] [place] [address], [place] Glucose mass conc 91 mg/dL Normal 70-100 [facility] Comment on above: Performed By: #### 4 6447, 24603 ####[facility].[address] Potassium molar conc 3.9 mmol/L Normal 3.5-5.1 [facility] Comment on above: Performed By: #### 4 6447, 06796 ####[facility].[address] Protein mass conc 7.0 g/dL Normal 6.0-8.3 [facility] Comment on above: Performed By: #### 4 6447, 44084 ####[facility].[address] Sodium molar conc 140 mmol/L Normal 136-145 [facility] Comment on above: Performed By: #### 4 6447, 68670 ####[facility].[address] Urea nitrogen mass conc 15 mg/dL Normal 7-25 [facility] Comment on above: Performed By: #### 4 6447, 96870 ####[facility].[address] DIRECT BILIon 09-25-2017 Bilirubin.direct mass conc 0.1 mg/dL Normal 0.0-0.2 [facility] Comment on above: Performed By: #### 4 6447, 89168 ####[facility] [place] [address], [place] EVEROLIMUS [id number] 8 EVEROLIMUS 5.1 ng/mL Normal [facility] Comment on above: Result Comment: Ther apeutic [...] the transplantcenter.Test developed and characteristics determined by [employer]. See Compliance Statement B: Verified Person/CSPerformed by [employer],[address] [place] [address] [id number] edi.Verified Person, Leonid Antonio MD - Lab. Director LIPID PROFILEon 09-25-2017 Cholesterol in HDL mass conc 48 mg/dL Normal 23-92 [facility] Comment on above: Result Comment: Slig ht variation in normal range could be due to gender and/or age.HDL CHOLESTEROL REFERENCE RANGE:20 years and older Cardiovascular Risk> or =60 mg/dL Ihipiaeai72 TO 59 mg/dL Low Risk<40 mg/dL High Risk Performed By: #### 7 8454, 60074 ####[facility].[address] Cholesterol in LDL mass conc 69 mg/dL Normal 0-130 [facility] Comment on above: Result Comment: LDL IS A CALCULATIONLDL IS ONLY VALID IF THE TRIG IS LESS THAN 400. Performed By: #### 1 0269, 43954 ####[facility].[address] Cholesterol mass conc 138 mg/dL Normal 120-200 [facility] Comment on above: Result Comment: CHOL ESTEROL REFERENCE RANGE:20 YEARS AND OLDER CARDIOVASCULAR RISKLess than 200 mg/dl Low [id number] to 239 mg/dl Borderline Dilp270 mg/dl and greater High Risk Performed By: #### 4 4016, 64337 ####[facility].[address] Cholesterol.total/C holesterol in HDL mass ratio 2.9 {ratio} Normal .0-4.5 [facility] Comment on above: Performed By: #### 4 5950, 71846 ####[facility].[address] NON-HDL CHOLESTEROL 90 mg/dL Normal [facility] Comment on above: Performed By: #### 4 1865, 48365 ####[facility].[address] Triglyceride mass conc 103 mg/dL Normal 40-149 [facility] Comment on above: Result Comment: TRIG LYCERIDE REFERENCE RANGE:20 YEARS AND OLDER CARDIOVASCULAR RISKLESS THAN 150 mg/dl LOW [id number] TO 199 mg/dl BORDERLINE DUIL628 mg/dl AND GREATER HIGH RISK Performed By: #### 4 1688, 42752 ####[facility].[address] VLDL CHOL 21 mg/dL Normal 0-40 [facility] Comment on above: Performed By: #### 4 2841, 77818 ####[facility] [place] [address], [place] MAGNESIUM BLOODon 09-25-2017 Magnesium mass conc 1.8 mg/dL Low 1.9-2.7 [facility] Comment on above: Performed By: #### 4 4254, 09261 ####[facility] [place] [address], [place] PHOSPHORUS BLOODon 8 Phosphate mass conc 3.4 mg/dL Normal 2.5-5.0 [facility] Comment on above: Performed By: #### 4 6447, 28922 ####[facility] TACROLIMUSon 09-25-2017 Tacrolimus mass conc (Bld) 3.6 ng/mL Low 5.0-20.0 [facility] Comment on above: Result Comment: The [employer] Tacrolimus assay is a delayed one-step immunoassayfor the quantitative determination of tacrolimus in human whole bloodusing the chemiluminescent microparticle immunoassay (CMIA) technologywith flexible assay protocols, referred to as Chemiflex. Performed By: #### 4 6447, 85830 ####[place] [id number] URIC ACID BLOODon 09-25-2017 Urate mass conc 4.7 mg/dL Normal 2.3-6.6 [facility] Comment on above: Performed By: #### 4 6447, 22288 ####[place] [id number] BK VIRUS QUANTITATION PCR BL OODon 08-26-2017 BKV QUANT PCR Not detected Normal [facility] Comment on above: Result Comment: Meth od: BK virus was measured by quantitative polymerase chain reactionusing a TaqMan probe targeting the polyomavirus BK CERTIFIED PROSTHETIST/ORTHOTIST-1 gene.The lower limit of quantitation of the assay is 500 copies of BK genomeper milliliter of plasma or urine, and any detectable BK DNA below thatlevel is reported as: Detected, <500 copies/ml. Serial BK virusmeasurement can be used to monitor disease activity. (Reference:Kelsie vaughanl. J CLIN MICRO 2004; 42:2656-0214).This test was developed and its performance characteristics determinedby the [facility]. It has not been approvedby the US Food and Drug Administration. However, such approval is notrequired for clinical implementation, and test results have been shownto be clinically useful. This laboratory is CAP accredited and CLIAcertified to perform high complexity testing. Performed By: #### 4 1000, 66289, 38650, 13700, 79591, 57903 ####[facility] LOG 10 COPIES Not detected Normal [facility] Comment on above: Performed By: #### 4 1000, 18638, 01248, 85540, 04426, 04944 ####[facility] CBC W/DIFFon 08-26-2017 ABS BASOPHILS 0.0 10*3/uL Normal 0.0-0.2 [facility] Comment on above: Performed By: #### 4 1000, 32018, 77882, 91133, 51708, 51152 ####[facility] ABS IMM GRANS 0.0 10*3/uL Normal 0.0-0.2 [facility] Comment on above: Performed By: #### 4 1000, 63615, 99307, 86508, 13664, 91464 ####[facility] ABS NEUTROPHILS 4.5 10*3/uL Normal 1.6-7.6 [facility] Comment on above: Performed By: #### 4 1000, 37364, 75500, 17587, 71761, 57047 ####[facility].[address] Basophils Auto #/vol (Bld) 0.2 % Normal 0.0-1.0 [facility] Comment on above: Performed By: #### 4 1000, 65984, 18603, 11358, 86840, 37173 ####[facility].[address] Eosinophils Auto #/vol (Bld) 0.2 10*3/uL Normal 0.0-0.5 [facility] Comment on above: Performed By: #### 4 1000, 73197, 82301, 80963, 31075, 29124 ####[facility] Eosinophils/100 WBC Auto (Bld) 2.4 % Normal 0.0-6.0 [facility] Comment on above: Performed By: #### 4 1000, 49841, 48633, 63447, 94816, 79490 ####[facility] Erythrocyte distribution width Auto Ratio (RBC) 14.0 % Normal 11.5-15.0 [facility] Comment on above: Performed By: #### 4 1000, 35919, 64032, 40273, 27322, 55242 ####[facility] Hematocrit Auto Volume Fraction (Bld) 44.9 % Normal 36.0-45.0 [facility] Comment on above: Performed By: #### 4 1000, 97375, 91853, 90793, 64191, 18781 ####[facility] Hemoglobin mass conc (Bld) 14.9 g/dL Normal 12.0-15.0 [facility] Comment on above: Performed By: #### 4 1000, 07694, 86339, 80915, 66912, 38227 ####[facility] IMMATURE GRANS 0.5 % Normal 0.0-1.0 [facility] Comment on above: Performed By: #### 4 1000, 41888, 55552, 04851, 04701, 55646 ####[facility] Lymphocytes Auto #/vol (Bld) 1.0 10*3/uL Low 1.2-4.0 [facility] Comment on above: Performed By: #### 4 1000, 68012, 49885, 63194, 32963, 11753 ####[facility].[address] Lymphocytes/100 WBC Auto (Bld) 15.8 % Low 20.0-45.0 [facility] Comment on above: Performed By: #### 4 1000, 58643, 02112, 00967, 43737, 50764 ####[facility] MCH Auto Entitic mass (RBC) 29.1 pg Normal 27.0-33.0 [facility] Comment on above: Performed By: #### 4 1000, 23571, 32113, 22345, 02478, 24051 ####[facility].[address] MCHC Auto mass conc (RBC) 33.2 g/dL Normal 32.0-35.0 [facility] Comment on above: Performed By: #### 4 1000, 82200, 17709, 93899, 12265, 18454 ####[facility].[address] MCV Auto Entitic volume (RBC) 87.7 fL Normal 82.0-98.0 [facility] Comment on above: Performed By: #### 4 1000, 19094, 49139, 15336, 52069, 34640 ####[facility].[address] Monocytes Auto #/vol (Bld) 0.7 10*3/uL Normal 0.1-1.0 [facility] Comment on above: Performed By: #### 4 1000, 04938, 37827, 71683, 86966, 36289 ####[facility] [place] [address], [place] MONOS 10.6 % Normal 5.0-12.0 [facility] Comment on above: Performed By: #### 4 1000, 67851, 77815, 26503, 40491, 15399 ####[facility] [place] [address], [place] Neutrophils/100 WBC Auto (Bld) 70.5 % Normal 40.0-72.0 [facility] Comment on above: Performed By: #### 4 1000, 65069, 32731, 77433, 57371, 09843 ####[facility] [place] [address], [place] Nucleated RBC/100 WBC Ratio (Bld) 0 % Normal 0-0 [facility] Comment on above: Performed By: #### 4 1000, 66064, 85496, 62955, 76410, 46534 ####[facility] [place] [address], [place] PLAT CNT 231 10*3/uL Normal 150-400 [facility] Comment on above: Performed By: #### 4 1000, 91561, 40753, 14294, 51511, 61967 ####[facility] [place] [address], [place] RBC Auto #/vol (Bld) 5.12 10*6/uL High 3.80-5.00 [facility] Comment on above: Performed By: #### 4 1000, 80998, 22216, 36719, 02472, 16854 ####[facility] [place] [address], [place] WBC Auto #/vol (Bld) 6.32 10*3/uL Normal 4.00-10.60 [facility] Comment on above: Performed By: #### 4 1000, 90482, 00735, 22833, 88795, 26930 ####[facility] [place] [address], [place] COMP METABOLIC PANELon 08-26 Albumin mass conc 4.3 g/dL Normal 3.5-5.7 [facility] Comment on above: Performed By: #### 4 1000, 94647, 00202, 23372, 34457, 83244 ####[facility] ALKALINE PHOSPH 125 IU/L High 34-104 [facility] Comment on above: Performed By: #### 4 1000, 93368, 49364, 63968, 71301, 00487 ####[facility] ALT enzyme act/vol 17 U/L Normal 7-52 [facility] Comment on above: Performed By: #### 4 1000, 00614, 27873, 24019, 91990, 77500 ####[facility] AST enzyme act/vol 23 U/L Normal 13-39 [facility] Comment on above: Performed By: #### 4 1000, 94549, 92889, 50069, 52215, 87816 ####[facility] [place] [address], [place] Bilirubin mass conc 0.4 mg/dL Normal 0.3-1.0 [facility] Comment on above: Performed By: #### 4 1000, 04411, 06404, 36874, 15043, 50865 ####[facility] [place] [address], [place] Calcium mass conc 9.6 mg/dL Normal 8.6-10.3 [facility] Comment on above: Performed By: #### 4 1000, 23040, 48428, 14977, 84238, 96739 ####[facility] [place] [address], [place] Chloride molar conc 104 mmol/L Normal 98-107 [facility] Comment on above: Performed By: #### 4 1000, 58601, 94442, 02215, 37026, 29752 ####[facility] [place] [address], [place] CO2 molar conc 27 mmol/L Normal 21-31 [facility] Comment on above: Performed By: #### 4 1000, 22652, 79992, 02285, 46831, 11582 ####[facility] [place] [address], [place] Creatinine mass conc 0.77 mg/dL Normal 0.60-1.20 [facility] Comment on above: Performed By: #### 4 1000, 30778, 53214, 62411, 30621, 87491 ####[facility] [place] [address], [place] GFR/1.73 sq M predicted among blacks MDRD vol rate/area (S/P/Bld) mL/min/{1.73_m2} Normal >60 [facility] Comment on above: Performed By: #### 4 1000, 14522, 58542, 51035, 64471, 97839 ####[facility] [place] [address], [place] GFR/1.73 sq M predicted among non-blacks MDRD vol rate/area (S/P/Bld) mL/min/{1.73_m2} Normal >60 [facility] Comment on above: Performed By: #### 4 1000, 69084, 53373, 87388, 51056, 56244 ####[facility] [place] [address], [place] Glucose mass conc 95 mg/dL Normal 70-100 [facility] Comment on above: Performed By: #### 4 1000, 75905, 65487, 30081, 85205, 12408 ####[facility] Potassium molar conc 4.1 mmol/L Normal 3.5-5.1 [facility] Comment on above: Performed By: #### 4 1000, 32040, 64901, 55055, 02803, 63135 ####[facility] Protein mass conc 7.3 g/dL Normal 6.0-8.3 [facility] Comment on above: Performed By: #### 4 1000, 89335, 22891, 95567, 54417, 12492 ####[facility] [place] [address], [place] Sodium molar conc 139 mmol/L Normal 136-145 [facility] Comment on above: Performed By: #### 4 1000, 65270, 96146, 82206, 78515, 78993 ####[facility] Urea nitrogen mass conc 12 mg/dL Normal 7-25 [facility] Comment on above: Performed By: #### 4 1000, 21443, 66729, 75936, 89542, 78236 ####[facility] DIRECT BILIon 08-26-2017 Bilirubin.direct mass conc 0.1 mg/dL Normal 0.0-0.2 [facility] Comment on above: Performed By: #### 4 1000, 78087, 47394, 19230, 68489, 60431 ####[facility] [place] [address], [place] EVEROLIMUS [id number] 8 EVEROLIMUS 5.6 ng/mL Normal [facility] Comment on above: Result Comment: Ther apeutic [...] the transplantcenter.Test developed and characteristics determined by [employer]. See Compliance Statement B: Verified Person/CSPerformed by [employer],[address] [place] [id number] dde.Verified Person, Leonid Antonio MD - Lab. Director HEMOGLOBIN A1Con 08-26-2017 Glucose mass conc 114 mg/dL Normal 70-126 [facility] Comment on above: Performed By: #### 4 1000, 54642, 48722, 71250, 21691, 76268 ####[facility] [address], [place] Hemoglobin A1c/Hemoglobin.tota l mass fraction (Bld) 5.6 % Normal 4.0-6.0 [facility] Comment on above: Performed By: #### 4 1000, 91281, 83256, 05131, 80543, 58778 ####[facility] [address], [place] LIPID PROFILEon 08-26-2017 Cholesterol in HDL mass conc 49 mg/dL Normal 23-92 [facility] Comment on above: Result Comment: Slig ht variation in normal range could be due to gender and/or age.HDL CHOLESTEROL REFERENCE RANGE:20 years and older Cardiovascular Risk> or =60 mg/dL Eyczhhqsa54 TO 59 mg/dL Low Risk<40 mg/dL High Risk Performed By: #### 4 1000, 05867, 16803, 05071, 26746, 43051 ####[facility] [place] [address], [place] Cholesterol in LDL mass conc 76 mg/dL Normal 0-130 [facility] Comment on above: Result Comment: LDL IS A CALCULATIONLDL IS ONLY VALID IF THE TRIG IS LESS THAN 400. Performed By: #### 4 1000, 69498, 03867, 04827, 35507, 18378 ####[facility] [place] [address], [place] Cholesterol mass conc 152 mg/dL Normal 120-200 [facility] Comment on above: Result Comment: CHOL ESTEROL REFERENCE RANGE:20 YEARS AND OLDER CARDIOVASCULAR RISKLess than 200 mg/dl Low [id number] to 239 mg/dl Borderline Pbcu100 mg/dl and greater High Risk Performed By: #### 4 1000, 85487, 34159, 90344, 20100, 84398 ####[facility] [place] [address], [place] Cholesterol.total/C holesterol in HDL mass ratio 3.1 {ratio} Normal .0-4.5 [facility] Comment on above: Performed By: #### 4 1000, 08271, 68047, 73668, 92628, 45927 ####[facility] [place] [address], [place] NON-HDL CHOLESTEROL 103 mg/dL Normal [facility] Comment on above: Performed By: #### 4 1000, 67531, 39266, 08542, 45363, 21215 ####[facility] [place] [address], [place] Triglyceride mass conc 133 mg/dL Normal 40-149 [facility] Comment on above: Result Comment: TRIG LYCERIDE REFERENCE RANGE:20 YEARS AND OLDER CARDIOVASCULAR RISKLESS THAN 150 mg/dl LOW [id number] TO 199 mg/dl BORDERLINE [id number] mg/dl AND GREATER HIGH RISK Performed By: #### 4 1000, 82904, 35170, 10432, 34111, 54452 ####[facility].[address] VLDL CHOL 27 mg/dL Normal 0-40 [facility] Comment on above: Performed By: #### 4 1000, 37513, 97484, 92161, 69196, 30037 ####[facility].[address] MAGNESIUM BLOODon 08-26-2017 Magnesium mass conc 1.9 mg/dL Normal 1.9-2.7 [facility] Comment on above: Performed By: #### 4 1000, 52766, 78669, 22547, 71410, 43013 ####[facility].[address] PHOSPHORUS BLOODon 8 Phosphate mass conc 3.4 mg/dL Normal 2.5-5.0 [facility] Comment on above: Performed By: #### 4 1000, 47389, 65920, 35840, 83849, 30244 ####[facility].[address] TACROLIMUSon 08-26-2017 Tacrolimus mass conc (Bld) 4.3 ng/mL Low 5.0-20.0 [facility] Comment on above: Result Comment: The [employer] Tacrolimus assay is a delayed one-step immunoassayfor the quantitative determination of tacrolimus in human whole bloodusing the chemiluminescent microparticle immunoassay (CMIA) technologywith flexible assay protocols, referred to as Chemiflex. Performed By: #### 4 1000, 95628, 98368, 12473, 11869, 42291 ####[facility] URIC ACID BLOODon 08-26-2017 Urate mass conc 4.6 mg/dL Normal 2.3-6.6 [facility] Comment on above: Performed By: #### 4 1000, 72120, 96853, 00147, 33328, 53605 ####[facility] CBC W/DIFFon 07-23-2017 ABS BASOPHILS 0.0 10*3/uL Normal 0.0-0.2 [facility] Comment on above: Performed By: #### 4 1000, 26535, 15332, 50172, 51117, 31958 ####[facility] ABS IMM GRANS 0.0 10*3/uL Normal 0.0-0.2 [facility] Comment on above: Performed By: #### 4 1000, 17704, 75667, 05687, 89702, 77047 ####[facility] ABS NEUTROPHILS 4.4 10*3/uL Normal 1.6-7.6 [facility] Comment on above: Performed By: #### 4 1000, 02301, 44523, 67363, 68462, 65717 ####[facility] Basophils Auto #/vol (Bld) 0.2 % Normal 0.0-1.0 [facility] Comment on above: Performed By: #### 4 1000, 80861, 48228, 42593, 21037, 37546 ####[facility] Eosinophils Auto #/vol (Bld) 0.1 10*3/uL Normal 0.0-0.5 [facility] Comment on above: Performed By: #### 4 1000, 62536, 74348, 69048, 29154, 45877 ####[facility] Eosinophils/100 WBC Auto (Bld) 2.1 % Normal 0.0-6.0 [facility] Comment on above: Performed By: #### 4 1000, 47447, 70863, 08477, 81002, 43093 ####[facility] Erythrocyte distribution width Auto Ratio (RBC) 13.7 % Normal 11.5-15.0 [facility] Comment on above: Performed By: #### 4 1000, 54131, 62263, 37444, 99019, 14467 ####[facility] Hematocrit Auto Volume Fraction (Bld) 44.4 % Normal 36.0-45.0 [facility] Comment on above: Performed By: #### 4 1000, 90381, 83272, 67335, 42622, 09134 ####[facility] Hemoglobin mass conc (Bld) 14.7 g/dL Normal 12.0-15.0 [facility] Comment on above: Performed By: #### 4 1000, 73892, 34629, 11336, 34822, 08205 ####[facility] IMMATURE GRANS 0.5 % Normal 0.0-1.0 [facility] Comment on above: Performed By: #### 4 1000, 80718, 90774, 82488, 58504, 73974 ####[facility] Lymphocytes Auto #/vol (Bld) 1.0 10*3/uL Low 1.2-4.0 [facility] Comment on above: Performed By: #### 4 1000, 60979, 69295, 02105, 83506, 61773 ####[facility].[address] Lymphocytes/100 WBC Auto (Bld) 15.5 % Low 20.0-45.0 [facility] Comment on above: Performed By: #### 4 1000, 78175, 85063, 37976, 94823, 53034 ####[facility] MCH Auto Entitic mass (RBC) 28.9 pg Normal 27.0-33.0 [facility] Comment on above: Performed By: #### 4 1000, 72343, 65527, 28445, 28457, 43589 ####[facility] MCHC Auto mass conc (RBC) 33.1 g/dL Normal 32.0-35.0 [facility] Comment on above: Performed By: #### 4 1000, 64934, 14291, 41733, 67224, 13701 ####[facility] MCV Auto Entitic volume (RBC) 87.4 fL Normal 82.0-98.0 [facility] Comment on above: Performed By: #### 4 1000, 59273, 44913, 32242, 87650, 03966 ####[facility].[address] Monocytes Auto #/vol (Bld) 0.8 10*3/uL Normal 0.1-1.0 [facility] Comment on above: Performed By: #### 4 1000, 48150, 03313, 80125, 16048, 26397 ####[facility] MONOS 12.3 % High 5.0-12.0 [facility] Comment on above: Performed By: #### 4 1000, 13505, 88130, 22918, 70762, 95883 ####[facility] Neutrophils/100 WBC Auto (Bld) 69.4 % Normal 40.0-72.0 [facility] Comment on above: Performed By: #### 4 1000, 88432, 30622, 83490, 17211, 24899 ####[facility] Nucleated RBC/100 WBC Ratio (Bld) 0 % Normal 0-0 [facility] Comment on above: Performed By: #### 4 1000, 10724, 22151, 40387, 99518, 89205 ####[facility] PLAT CNT 218 10*3/uL Normal 150-400 [facility] Comment on above: Performed By: #### 4 1000, 12258, 18323, 77554, 93787, 59728 ####[facility] RBC Auto #/vol (Bld) 5.08 10*6/uL High 3.80-5.00 [facility] Comment on above: Performed By: #### 4 1000, 17845, 18020, 99864, 30217, 98999 ####[facility] [place] [address], [place] WBC Auto #/vol (Bld) 6.3 10*3/uL Normal 4.0-10.6 [facility] Comment on above: Performed By: #### 4 1000, 82479, 69376, 80280, 21133, 20485 ####[facility] COMP METABOLIC PANELon 07-23 Albumin mass conc 4.2 g/dL Normal 3.5-5.7 [facility] Comment on above: Performed By: #### 4 1000, 03035, 33364, 65182, 34974, 81168 ####[facility] [place] [address], [place] ALKALINE PHOSPH 113 IU/L High 34-104 [facility] Comment on above: Performed By: #### 4 1000, 90206, 03321, 90643, 71217, 70785 ####[facility] [place] [address], [place] ALT enzyme act/vol 23 U/L Normal 7-52 [facility] Comment on above: Performed By: #### 4 1000, 30556, 74181, 38952, 13137, 82277 ####[facility] [place] [address], [place] AST enzyme act/vol 25 U/L Normal 13-39 [facility] Comment on above: Performed By: #### 4 1000, 06419, 22088, 25623, 20887, 78623 ####[facility] [place] [address], [place] Bilirubin mass conc 0.6 mg/dL Normal 0.3-1.0 [facility] Comment on above: Performed By: #### 4 1000, 87665, 34864, 04727, 78633, 40185 ####[facility] [place] [address], [place] Calcium mass conc 9.6 mg/dL Normal 8.6-10.3 [facility] Comment on above: Performed By: #### 4 1000, 87613, 00727, 88758, 25768, 89166 ####[facility] [place] [address], [place] Chloride molar conc 104 mmol/L Normal 98-107 [facility] Comment on above: Performed By: #### 4 1000, 16532, 23733, 25341, 04663, 97372 ####[facility] [place] [address], [place] CO2 molar conc 25 mmol/L Normal 21-31 [facility] Comment on above: Performed By: #### 4 1000, 23839, 15619, 45238, 97734, 18654 ####[facility] [place] [address], [place] Creatinine mass conc 0.80 mg/dL Normal 0.60-1.20 [facility] Comment on above: Performed By: #### 4 1000, 26926, 76568, 23088, 04778, 51904 ####[facility] [place] [address], [place] GFR/1.73 sq M predicted among blacks MDRD vol rate/area (S/P/Bld) mL/min/{1.73_m2} Normal >60 [facility] Comment on above: Performed By: #### 4 1000, 06511, 97552, 00758, 74649, 59009 ####[facility] [place] [address], [place] GFR/1.73 sq M predicted among non-blacks MDRD vol rate/area (S/P/Bld) mL/min/{1.73_m2} Normal >60 [facility] Comment on above: Performed By: #### 4 1000, 75166, 94126, 93235, 79939, 13395 ####[facility] [place] [address], [place] Glucose mass conc 91 mg/dL Normal 70-100 [facility] Comment on above: Performed By: #### 4 1000, 37427, 97994, 85501, 92098, 90551 ####[facility] [place] [address], [place] Potassium molar conc 4.0 mmol/L Normal 3.5-5.1 [facility] Comment on above: Performed By: #### 4 1000, 44056, 98128, 01365, 28423, 19168 ####[facility] [place] [address], [place] Protein mass conc 6.8 g/dL Normal 6.0-8.3 [facility] Comment on above: Performed By: #### 4 1000, 04675, 81972, 07353, 80984, 40258 ####[facility] [place] [address], [place] Sodium molar conc 140 mmol/L Normal 136-145 [facility] Comment on above: Performed By: #### 4 1000, 18302, 91426, 87776, 82534, 53588 ####[facility] Urea nitrogen mass conc 16 mg/dL Normal 7-25 [facility] Comment on above: Performed By: #### 4 1000, 99860, 13598, 67574, 50763, 91422 ####[facility] DIRECT BILIon 07-23-2017 Bilirubin.direct mass conc 0.2 mg/dL Normal 0.0-0.2 [facility] Comment on above: Performed By: #### 4 1000, 55336, 03418, 70950, 34478, 84856 ####[facility] [place] [address], [place] EVEROLIMUS [id number] 8 EVEROLIMUS 5.3 ng/mL Normal [facility] Comment on above: Result Comment: Ther apeutic [...] the transplantcenter.Test developed and characteristics determined by [employer]. See Compliance Statement B: Verified Person/CSPerformed by [employer],[address] [place] [id number] [address].Verified Person, Leonid Antonio MD - Lab. Director LIPID PROFILEon 07-23-2017 Cholesterol in HDL mass conc 45 mg/dL Normal 23-92 [facility] Comment on above: Result Comment: Slig ht variation in normal range could be due to gender and/or age.HDL CHOLESTEROL REFERENCE RANGE:20 years and older Cardiovascular Risk> or =60 mg/dL Altflofre87 TO 59 mg/dL Low Risk<40 mg/dL High Risk Performed By: #### 4 1000, 33078, 04026, 85985, 40130, 82277 ####[facility] Cholesterol in LDL mass conc 79 mg/dL Normal 0-130 [facility] Comment on above: Result Comment: LDL IS A CALCULATIONLDL IS ONLY VALID IF THE TRIG IS LESS THAN 400. Performed By: #### 4 1000, 17286, 28317, 19468, 29935, 14978 ####[facility] [place] [address], [place] Cholesterol mass conc 141 mg/dL Normal 120-200 [facility] Comment on above: Result Comment: CHOL ESTEROL REFERENCE RANGE:20 YEARS AND OLDER CARDIOVASCULAR RISKLess than 200 mg/dl Low Kwxt907 to 239 mg/dl Borderline Bzkh818 mg/dl and greater High Risk Performed By: #### 4 1000, 65001, 50251, 94434, 14023, 45806 ####[facility] [place] [address], [place] Cholesterol.total/C holesterol in HDL mass ratio 3.1 {ratio} Normal .0-4.5 [facility] Comment on above: Performed By: #### 4 1000, 99321, 13648, 65348, 69865, 81861 ####[facility] NON-HDL CHOLESTEROL 96 mg/dL Normal [facility] Comment on above: Performed By: #### 4 1000, 64500, 54246, 93501, 62449, 02477 ####[facility] [facility] [address], [place] Triglyceride mass conc 83 mg/dL Normal 40-149 [facility] Comment on above: Result Comment: TRIG LYCERIDE REFERENCE RANGE:20 YEARS AND OLDER CARDIOVASCULAR RISKLESS THAN 150 mg/dl LOW [id number] TO 199 mg/dl BORDERLINE SMZY253 mg/dl AND GREATER HIGH RISK Performed By: #### 4 1000, 93935, 09335, 23393, 71537, 42960 ####[facility] [place] [address], [place] VLDL CHOL 17 mg/dL Normal 0-40 [facility] Comment on above: Performed By: #### 4 1000, 09304, 13201, 75390, 09596, 51286 ####[facility] [place] [address], [place] MAGNESIUM BLOODon 07-23-2017 Magnesium mass conc 2.0 mg/dL Normal 1.9-2.7 [facility] Comment on above: Performed By: #### 4 1000, 43162, 96696, 12266, 99044, 70179 ####[facility] [facility].[address] PHOSPHORUS BLOODon 8 Phosphate mass conc 4.0 mg/dL Normal 2.5-5.0 [facility] Comment on above: Performed By: #### 4 1000, 17782, 46423, 30912, 31967, 31691 ####[facility].[address] TACROLIMUSon 07-23-2017 Tacrolimus mass conc (Bld) 4.6 ng/mL Low 5.0-20.0 [facility] Comment on above: Result Comment: The [facility] [place] Tacrolimus assay is a delayed one-step immunoassayfor the quantitative determination of tacrolimus in human whole bloodusing the chemiluminescent microparticle immunoassay (CMIA) technologywith flexible assay protocols, referred to as Chemiflex. Performed By: #### 4 1000, 71289, 81007, 49032, 57637, 67732 ####[facility].[address] URIC ACID BLOODon 07-23-2017 Urate mass conc 4.7 mg/dL Normal 2.3-6.6 [facility] Comment on above: Performed By: #### 4 1000, 50322, 43849, 34356, 96471, 39415 ####[facility] [facility] [place] [address], [place] CBC W/DIFFon 06-20-2017 ABS BASOPHILS 0.0 10*3/uL Normal 0.0-0.2 [facility] Comment on above: Performed By: #### 4 1000, 80326, 81991, 82424, 41283, 71703 ####[facility] [facility].[address] ABS IMM GRANS 0.0 10*3/uL Normal 0.0-0.2 [facility] Comment on above: Performed By: #### 4 1000, 13116, 31192, 38856, 79554, 20629 ####[facility] ABS NEUTROPHILS 4.2 10*3/uL Normal 1.6-7.6 [facility] Comment on above: Performed By: #### 4 1000, 09316, 83630, 85625, 76863, 98288 ####[facility] Basophils Auto #/vol (Bld) 0.2 % Normal 0.0-1.0 [facility] Comment on above: Performed By: #### 4 1000, 58072, 42283, 56535, 60955, 09908 ####[facility] Eosinophils Auto #/vol (Bld) 0.1 10*3/uL Normal 0.0-0.5 [facility] Comment on above: Performed By: #### 4 1000, 11989, 64068, 69451, 08117, 84625 ####[place] [id number] [address] Eosinophils/100 WBC Auto (Bld) 1.5 % Normal 0.0-6.0 [facility] Comment on above: Performed By: #### 4 1000, 91520, 51021, 28578, 20599, 50682 ####[facility] Erythrocyte distribution width Auto Ratio (RBC) 13.4 % Normal 11.5-15.0 [facility] Comment on above: Performed By: #### 4 1000, 13784, 26019, 29211, 43097, 68344 ####[facility] [facility].[address] Hematocrit Auto Volume Fraction (Bld) 44.9 % Normal 36.0-45.0 [facility] Comment on above: Performed By: #### 4 1000, 90804, 58088, 21870, 70875, 02901 ####[facility].[address] Hemoglobin mass conc (Bld) 14.9 g/dL Normal 12.0-15.0 [facility] Comment on above: Performed By: #### 4 1000, 93894, 29830, 58770, 17464, 81165 ####[facility].[address] IMMATURE GRANS 0.2 % Normal 0.0-1.0 [facility] Comment on above: Performed By: #### 4 1000, 42834, 55932, 05603, 42709, 85097 ####[facility] [facility].[address] Lymphocytes Auto #/vol (Bld) 1.1 10*3/uL Low 1.2-4.0 [facility] Comment on above: Performed By: #### 4 1000, 61499, 53229, 13946, 07163, 87999 ####[facility] [facility].[address] Lymphocytes/100 WBC Auto (Bld) 17.4 % Low 20.0-45.0 [facility] Comment on above: Performed By: #### 4 1000, 67133, 30773, 26603, 26395, 62108 ####[facility].[address] MCH Auto Entitic mass (RBC) 29.2 pg Normal 27.0-33.0 [facility] Comment on above: Performed By: #### 4 1000, 77768, 87832, 62186, 54174, 53839 ####[facility] MCHC Auto mass conc (RBC) 33.2 g/dL Normal 32.0-35.0 [facility] Comment on above: Performed By: #### 4 1000, 54157, 49525, 91136, 66028, 06393 ####[facility] MCV Auto Entitic volume (RBC) 87.9 fL Normal 82.0-98.0 [facility] Comment on above: Performed By: #### 4 1000, 54220, 51376, 24195, 90867, 67040 ####[facility].[address] Monocytes Auto #/vol (Bld) 0.7 10*3/uL Normal 0.1-1.0 [facility] Comment on above: Performed By: #### 4 1000, 98025, 48958, 34461, 32519, 94493 ####[facility].[address] MONOS 11.3 % Normal 5.0-12.0 [facility] Comment on above: Performed By: #### 4 1000, 04208, 50709, 61251, 54513, 98682 ####[facility].[address] Neutrophils/100 WBC Auto (Bld) 69.4 % Normal 40.0-72.0 [facility] Comment on above: Performed By: #### 4 1000, 96522, 92870, 77390, 39952, 96435 ####[facility] Nucleated RBC/100 WBC Ratio (Bld) 0 % Normal 0-0 [facility] Comment on above: Performed By: #### 4 1000, 87158, 70037, 09219, 26033, 95065 ####[facility] PLAT CNT 198 10*3/uL Normal 150-400 [facility] Comment on above: Performed By: #### 4 1000, 73042, 77393, 37114, 81607, 31184 ####[facility] RBC Auto #/vol (Bld) 5.11 10*6/uL High 3.80-5.00 [facility] Comment on above: Performed By: #### 4 1000, 81781, 91040, 79073, 50290, 83935 ####[facility] WBC Auto #/vol (Bld) 6.0 10*3/uL Normal 4.0-10.6 [facility] Comment on above: Performed By: #### 4 1000, 80128, 19642, 59316, 79551, 06809 ####[facility].[address] COMP METABOLIC PANELon 06-20 Albumin mass conc 4.4 g/dL Normal 3.5-5.7 [facility] Comment on above: Performed By: #### 4 1000, 80520, 77548, 38015, 43234, 61974 ####[facility] ALKALINE PHOSPH 133 IU/L High 34-104 [facility] Comment on above: Performed By: #### 4 1000, 04667, 62269, 29433, 24016, 55452 ####[facility] ALT enzyme act/vol 16 U/L Normal 7-52 [facility] Comment on above: Performed By: #### 4 1000, 15654, 46731, 98815, 21856, 09401 ####[facility] [place] [address], [place] AST enzyme act/vol 21 U/L Normal 13-39 [facility] Comment on above: Performed By: #### 4 1000, 85531, 41191, 03623, 82985, 79754 ####[facility] [place] [address], [place] Bilirubin mass conc 0.8 mg/dL Normal 0.3-1.0 [facility] Comment on above: Performed By: #### 4 1000, 74379, 91519, 06929, 15250, 94041 ####[facility] [place] [address], [place] Calcium mass conc 10.0 mg/dL Normal 8.6-10.3 [facility] Comment on above: Performed By: #### 4 1000, 12571, 15842, 15617, 16340, 27618 ####[facility] [place] [address], [place] Chloride molar conc 106 mmol/L Normal 98-107 [facility] Comment on above: Performed By: #### 4 1000, 57374, 26813, 58293, 37192, 23094 ####[facility] [place] [address], [place] CO2 molar conc 27 mmol/L Normal 21-31 [facility] Comment on above: Performed By: #### 4 1000, 85405, 65263, 35310, 02276, 24150 ####[facility] [place] [address], [place] Creatinine mass conc 0.74 mg/dL Normal 0.60-1.20 [facility] Comment on above: Performed By: #### 4 1000, 55663, 74379, 46581, 81943, 81961 ####[facility] [place] [address], [place] GFR/1.73 sq M predicted among blacks MDRD vol rate/area (S/P/Bld) mL/min/{1.73_m2} Normal >60 [facility] Comment on above: Performed By: #### 4 1000, 89814, 29978, 76103, 42854, 68520 ####[facility] [place] [address], [place] GFR/1.73 sq M predicted among non-blacks MDRD vol rate/area (S/P/Bld) mL/min/{1.73_m2} Normal >60 [facility] Comment on above: Performed By: #### 4 1000, 07865, 39130, 83968, 70769, 02347 ####[facility] [place] [address], [place] Glucose mass conc 95 mg/dL Normal 70-100 [facility] Comment on above: Performed By: #### 4 1000, 39662, 23082, 37780, 13578, 38300 ####[facility] [place] [address], [place] Potassium molar conc 3.8 mmol/L Normal 3.5-5.1 [facility] Comment on above: Performed By: #### 4 1000, 06538, 73841, 09568, 64446, 19220 ####[facility] [place] [address], [place] Protein mass conc 7.3 g/dL Normal 6.0-8.3 [facility] Comment on above: Performed By: #### 4 1000, 54228, 08236, 69613, 14707, 08500 ####[facility] Sodium molar conc 137 mmol/L Normal 136-145 [facility] Comment on above: Performed By: #### 4 1000, 48085, 23053, 98111, 04116, 32081 ####[facility] Urea nitrogen mass conc 16 mg/dL Normal 7-25 [facility] Comment on above: Performed By: #### 4 1000, 23832, 03770, 99623, 91259, 61400 ####[facility].[address] DIRECT BILIon 06-20-2017 Bilirubin.direct mass conc 0.1 mg/dL Normal 0.0-0.2 [facility] Comment on above: Performed By: #### 4 1000, 08028, 18402, 14497, 24627, 80040 ####[facility].[address] EVEROLIMUS [id number] 8 EVEROLIMUS 6.7 ng/mL Normal [facility] Comment on above: Result Comment: Ther apeutic [...] the transplantcenter.Test developed and characteristics determined by [employer]. See Compliance Statement B: [employer]/CSPerformed by [employer],[address] [facility] [place] [address] wfr.Verified Person, Leonid Antonio MD - Lab. Director LIPID PROFILEon 06-20-2017 Cholesterol in HDL mass conc 45 mg/dL Normal 23-92 [facility] Comment on above: Result Comment: Slig ht variation in normal range could be due to gender and/or age.HDL CHOLESTEROL REFERENCE RANGE:20 years and older Cardiovascular Risk> or =60 mg/dL [id number] TO 59 mg/dL Low Risk<40 mg/dL High Risk Performed By: #### 4 1000, 07073, 94152, 09478, 52101, 03020 ####[facility] [facility] [place] [address], [place] Cholesterol in LDL mass conc 58 mg/dL Normal 0-130 [facility] Comment on above: Result Comment: LDL IS A CALCULATIONLDL IS ONLY VALID IF THE TRIG IS LESS THAN 400. Performed By: #### 4 1000, 23908, 53209, 31074, 03003, 85101 ####[facility] [facility] [place] [address], [place] Cholesterol mass conc 126 mg/dL Normal 120-200 [facility] Comment on above: Result Comment: CHOL ESTEROL REFERENCE RANGE:20 YEARS AND OLDER CARDIOVASCULAR RISKLess than 200 mg/dl Low Rres798 to 239 mg/dl Borderline Wyif240 mg/dl and greater High Risk Performed By: #### 4 1000, 23952, 71416, 19873, 69114, 84867 ####[facility] [place] [address], [place] Cholesterol.total/C holesterol in HDL mass ratio 2.8 {ratio} Normal .0-4.5 [facility] Comment on above: Performed By: #### 4 1000, 93245, 81090, 85876, 07566, 65324 ####[facility] NON-HDL CHOLESTEROL 81 mg/dL Normal [facility] Comment on above: Performed By: #### 4 1000, 68434, 56246, 60431, 22576, 69053 ####[facility], [place] [address] [place] [address] Triglyceride mass conc 113 mg/dL Normal 40-149 [facility] Comment on above: Result Comment: TRIG LYCERIDE REFERENCE RANGE:20 YEARS AND OLDER CARDIOVASCULAR RISKLESS THAN 150 mg/dl LOW [id number] TO 199 mg/dl BORDERLINE [id number] mg/dl AND GREATER HIGH RISK Performed By: #### 4 1000, 84587, 36544, 01673, 27491, 17237 ####[facility] VLDL CHOL 23 mg/dL Normal 0-40 [facility] Comment on above: Performed By: #### 4 1000, 45580, 08039, 43465, 75504, 38768 ####[facility] MAGNESIUM BLOODon 06-20-2017 Magnesium mass conc 1.9 mg/dL Normal 1.9-2.7 [facility] Comment on above: Performed By: #### 4 1000, 83330, 64973, 50470, 12705, 17360 ####[facility] [place] [address], [place] PHOSPHORUS BLOODon 8 Phosphate mass conc 3.1 mg/dL Normal 2.5-5.0 [facility] Comment on above: Performed By: #### 4 1000, 68974, 11758, 97919, 01237, 51069 ####[facility] [place] [address], [place] TACROLIMUSon 06-20-2017 Tacrolimus mass conc (Bld) 4.2 ng/mL Low 5.0-20.0 [facility] Comment on above: Result Comment: The [facility] Tacrolimus assay is a delayed one-step immunoassayfor the quantitative determination of tacrolimus in human whole bloodusing the chemiluminescent microparticle immunoassay (CMIA) technologywith flexible assay protocols, referred to as Chemiflex. Performed By: #### 4 1000, 30341, 21789, 56121, 15646, 36559 ####[facility] [facility].[address] URIC ACID BLOODon 06-20-2017 Urate mass conc 4.3 mg/dL Normal 2.3-6.6 [facility] Comment on above: Performed By: #### 4 1000, 58212, 41873, 58970, 72225, 49228 ####[facility].[address] BK VIRUS QUANTITATION PCR BL OODon 05-27-2017 BKV QUANT PCR Not detected Normal [facility] Comment on above: Result Comment: Meth od: BK virus was measured by quantitative polymerase chain reactionusing a TaqMan probe targeting the polyomavirus BK CERTIFIED PROSTHETIST/ORTHOTIST-1 gene.The lower limit of quantitation of the assay is 500 copies of BK genomeper milliliter of plasma or urine, and any detectable BK DNA below thatlevel is reported as: Detected, <500 copies/ml. Serial BK virusmeasurement can be used to monitor disease activity. (Reference:Kelsie vaughanl. J CLIN MICRO 2004; 42:3949-3931).This test was developed and its performance characteristics determinedby the [facility]. It has not been approvedby the [place] Food and Drug Administration. However, such approval is notrequired for clinical implementation, and test results have been shownto be clinically useful. This laboratory is CAP accredited and CLIAcertified to perform high complexity testing. Performed By: #### 4 1000, 27855, 90651, 23639, 28723, 05241 ####[facility] LOG 10 COPIES Not detected Normal [facility] Comment on above: Performed By: #### 4 1000, 59502, 68160, 26495, 26283, 36240 ####[facility].[address] CBC W/DIFFon 05-27-2017 ABS BASOPHILS 0.0 10*3/uL Normal 0.0-0.2 [facility] Comment on above: Performed By: #### 4 1000, 77724, 74813, 09602, 90044, 56718 ####[facility].[address] ABS IMM GRANS 0.0 10*3/uL Normal 0.0-0.2 [facility] Comment on above: Performed By: #### 4 1000, 68157, 19026, 15139, 14820, 50847 ####[facility] ABS NEUTROPHILS 4.8 10*3/uL Normal 1.6-7.6 [facility] Comment on above: Performed By: #### 4 1000, 23281, 37014, 28988, 59590, 58626 ####[facility] Basophils Auto #/vol (Bld) 0.0 % Normal 0.0-1.0 [facility] Comment on above: Performed By: #### 4 1000, 57668, 58236, 28931, 86707, 47539 ####[facility].[address] Eosinophils Auto #/vol (Bld) 0.1 10*3/uL Normal 0.0-0.5 [facility] Comment on above: Performed By: #### 4 1000, 81974, 69097, 17970, 83391, 44895 ####[facility] Eosinophils/100 WBC Auto (Bld) 1.1 % Normal 0.0-6.0 [facility] Comment on above: Performed By: #### 4 1000, 31023, 77464, 12208, 12101, 35950 ####[facility] [address] Erythrocyte distribution width Auto Ratio (RBC) 13.5 % Normal 11.5-15.0 [facility] Comment on above: Performed By: #### 4 1000, 85888, 96884, 72348, 27897, 41994 ####[facility] Hematocrit Auto Volume Fraction (Bld) 46.1 % High 36.0-45.0 [facility] Comment on above: Performed By: #### 4 1000, 84438, 81016, 42702, 54102, 04758 ####[facility] Hemoglobin mass conc (Bld) 15.0 g/dL Normal 12.0-15.0 [facility] Comment on above: Performed By: #### 4 1000, 85120, 35571, 33691, 21694, 49535 ####[facility] IMMATURE GRANS 0.3 % Normal 0.0-1.0 [facility] Comment on above: Performed By: #### 4 1000, 91335, 50485, 81371, 84343, 54436 ####[facility] Lymphocytes Auto #/vol (Bld) 1.0 10*3/uL Low 1.2-4.0 [facility] Comment on above: Performed By: #### 4 1000, 36772, 34088, 37092, 21621, 10868 ####[facility] Lymphocytes/100 WBC Auto (Bld) 15.7 % Low 20.0-45.0 [facility] Comment on above: Performed By: #### 4 1000, 19069, 00465, 28084, 70949, 49820 ####[facility].[address] MCH Auto Entitic mass (RBC) 28.8 pg Normal 27.0-33.0 [facility] Comment on above: Performed By: #### 4 1000, 14941, 98338, 32847, 43533, 22368 ####[facility].[address] MCHC Auto mass conc (RBC) 32.5 g/dL Normal 32.0-35.0 [facility] Comment on above: Performed By: #### 4 1000, 55525, 34800, 58076, 20864, 75133 ####[facility].[address] MCV Auto Entitic volume (RBC) 88.7 fL Normal 82.0-98.0 [facility] Comment on above: Performed By: #### 4 1000, 23151, 22822, 28730, 59368, 04695 ####[place] [id number] [facility].[address] Monocytes Auto #/vol (Bld) 0.8 10*3/uL Normal 0.1-1.0 [facility] Comment on above: Performed By: #### 4 1000, 16238, 86601, 57887, 88468, 88396 ####[facility] MONOS 11.4 % Normal 5.0-12.0 [facility] Comment on above: Performed By: #### 4 1000, 74756, 27946, 97663, 61485, 58854 ####[facility] Neutrophils/100 WBC Auto (Bld) 71.5 % Normal 40.0-72.0 [facility] Comment on above: Performed By: #### 4 1000, 57938, 97683, 94170, 72488, 92138 ####[facility] Nucleated RBC/100 WBC Ratio (Bld) 0 % Normal 0-0 [facility] Comment on above: Performed By: #### 4 1000, 73323, 81971, 44551, 13774, 16933 ####[facility].[address] PLAT CNT 199 10*3/uL Normal 150-400 [facility] Comment on above: Performed By: #### 4 1000, 07666, 00404, 76424, 92806, 02759 ####[facility].[address] RBC Auto #/vol (Bld) 5.20 10*6/uL High 3.80-5.00 [facility] Comment on above: Performed By: #### 4 1000, 30571, 38363, 70220, 03551, 44524 ####[facility].[address] WBC Auto #/vol (Bld) 6.6 10*3/uL Normal 4.0-10.6 [facility] Comment on above: Performed By: #### 4 1000, 86389, 15035, 31695, 88646, 19909 ####[facility].[address] COMP METABOLIC PANELon 05-27 Albumin mass conc 4.6 g/dL Normal 3.5-5.7 [facility] Comment on above: Performed By: #### 4 1000, 59493, 29867, 75716, 53517, 94253 ####[facility] [place] [address], [place] ALKALINE PHOSPH 105 IU/L High 34-104 [facility] Comment on above: Performed By: #### 4 1000, 39724, 89312, 93922, 09351, 48367 ####[facility] [place] [address], [place] ALT enzyme act/vol 20 U/L Normal 7-52 [facility] Comment on above: Performed By: #### 4 1000, 94919, 32469, 55514, 07127, 39063 ####[facility] [place] [address], [place] AST enzyme act/vol 23 U/L Normal 13-39 [facility] Comment on above: Performed By: #### 4 1000, 77455, 93254, 77251, 20931, 97580 ####[facility] [place] [address], [place] Bilirubin mass conc 0.6 mg/dL Normal 0.3-1.0 [facility] Comment on above: Performed By: #### 4 1000, 67415, 95128, 85806, 04132, 48573 ####[facility] [place] [address], [place] Calcium mass conc 9.8 mg/dL Normal 8.6-10.3 [facility] Comment on above: Performed By: #### 4 1000, 27582, 10788, 58038, 14989, 01894 ####[facility] [place] [address], [place] Chloride molar conc 106 mmol/L Normal 98-107 [facility] Comment on above: Performed By: #### 4 1000, 46720, 79260, 77774, 06509, 42994 ####[facility] [place] [address], [place] CO2 molar conc 30 mmol/L Normal 21-31 [facility] Comment on above: Performed By: #### 4 1000, 66996, 07045, 62802, 73823, 80842 ####[facility] [place] [address], [place] Creatinine mass conc 0.80 mg/dL Normal 0.60-1.20 [facility] Comment on above: Performed By: #### 4 1000, 10591, 32854, 65174, 52760, 94025 ####[facility] [place] [address], [place] GFR/1.73 sq M predicted among blacks MDRD vol rate/area (S/P/Bld) mL/min/{1.73_m2} Normal >60 [facility] Comment on above: Performed By: #### 4 1000, 86216, 73226, 85487, 31667, 45345 ####[facility] [place] [address], [place] GFR/1.73 sq M predicted among non-blacks MDRD vol rate/area (S/P/Bld) mL/min/{1.73_m2} Normal >60 [facility] Comment on above: Performed By: #### 4 1000, 56192, 01313, 82988, 42295, 12070 ####[facility] [place] [address], [place] Glucose mass conc 90 mg/dL Normal 70-100 [facility] Comment on above: Performed By: #### 4 1000, 46147, 98478, 32105, 52052, 55180 ####[facility] [place] [address], [place] Potassium molar conc 4.0 mmol/L Normal 3.5-5.1 [facility] Comment on above: Performed By: #### 4 1000, 29806, 49165, 39799, 99382, 71321 ####[facility] Protein mass conc 6.8 g/dL Normal 6.0-8.3 [facility] Comment on above: Performed By: #### 4 1000, 49351, 73312, 12979, 83577, 64818 ####[facility] Sodium molar conc 138 mmol/L Normal 136-145 [facility] Comment on above: Performed By: #### 4 1000, 75867, 70479, 70789, 53174, 22354 ####[facility] Urea nitrogen mass conc 14 mg/dL Normal 7-25 [facility] Comment on above: Performed By: #### 4 1000, 02827, 43975, 03154, 98933, 26638 ####[facility] DIRECT BILIon 05-27-2017 Bilirubin.direct mass conc 0.1 mg/dL Normal 0.0-0.2 [facility] Comment on above: Performed By: #### 4 1000, 60243, 70073, 99555, 78368, 01992 ####[facility] EVEROLIMUS [id number] 8 EVEROLIMUS 5.6 ng/mL Normal [facility] Comment on above: Result Comment: Ther apeutic [...] the transplantcenter.Test developed and characteristics determined by [employer]. See Compliance Statement B: Verified Person/CSPerformed by [employer],[address] [place] [id number] aaq.Verified Person, Leonid Antonio MD - Lab. Director HEMOGLOBIN A1Con 05-27-2017 Glucose mass conc 108 mg/dL Normal 70-126 [facility] Comment on above: Performed By: #### 4 1000, 50104, 22395, 88026, 52743, 07779 ####[facility].[address] Hemoglobin A1c/Hemoglobin.tota l mass fraction (Bld) 5.4 % Normal 4.0-6.0 [facility] Comment on above: Performed By: #### 4 1000, 73527, 82883, 43374, 62497, 77437 ####[facility] [place] [address], [place] LIPID PROFILEon 05-27-2017 Cholesterol in HDL mass conc 39 mg/dL Normal 23-92 [facility] Comment on above: Result Comment: Slig ht variation in normal range could be due to gender and/or age.HDL CHOLESTEROL REFERENCE RANGE:20 years and older Cardiovascular Risk> or =60 mg/dL Adreojjab05 TO 59 mg/dL Low Risk<40 mg/dL High Risk Performed By: #### 4 1000, 01490, 33569, 49968, 52478, 87777 ####[facility] [place] [address], [place] Cholesterol in LDL mass conc 52 mg/dL Normal 0-130 [facility] Comment on above: Result Comment: LDL IS A CALCULATIONLDL IS ONLY VALID IF THE TRIG IS LESS THAN 400. Performed By: #### 4 1000, 44323, 40739, 94180, 71153, 68312 ####[facility] [place] [address], [place] Cholesterol mass conc 117 mg/dL Low 120-200 [facility] Comment on above: Result Comment: CHOL ESTEROL REFERENCE RANGE:20 YEARS AND OLDER CARDIOVASCULAR RISKLess than 200 mg/dl Low Puqq515 to 239 mg/dl Borderline Adfb223 mg/dl and greater High Risk Performed By: #### 4 1000, 57461, 23442, 73105, 61165, 52275 ####[facility] [place] [address], [place] Cholesterol.total/C holesterol in HDL mass ratio 3.0 {ratio} Normal .0-4.5 [facility] Comment on above: Performed By: #### 4 1000, 21833, 56008, 35785, 23526, 15511 ####[facility] [place] [address], [place] NON-HDL CHOLESTEROL 78 mg/dL Normal [facility] Comment on above: Performed By: #### 4 1000, 90197, 25332, 94632, 32085, 97270 ####[facility] [place] [address], [place] Triglyceride mass conc 131 mg/dL Normal 40-149 [facility] Comment on above: Result Comment: TRIG LYCERIDE REFERENCE RANGE:20 YEARS AND OLDER CARDIOVASCULAR RISKLESS THAN 150 mg/dl LOW [id number] TO 199 mg/dl BORDERLINE VRWZ158 mg/dl AND GREATER HIGH RISK Performed By: #### 4 1000, 43652, 74123, 18363, 74107, 38184 ####[facility] VLDL CHOL 26 mg/dL Normal 0-40 [facility] Comment on above: Performed By: #### 4 1000, 13572, 80820, 09520, 92920, 51744 ####[facility] [place] [address], [place] MAGNESIUM BLOODon 05-27-2017 Magnesium mass conc 2.1 mg/dL Normal 1.9-2.7 [facility] Comment on above: Performed By: #### 4 1000, 71322, 60584, 10044, 69041, 99342 ####[facility] [address], [place] PHOSPHORUS BLOODon 8 Phosphate mass conc 3.5 mg/dL Normal 2.5-5.0 [facility] Comment on above: Performed By: #### 4 1000, 19520, 36287, 03696, 02720, 79464 ####[facility].[address] TACROLIMUSon 05-27-2017 Tacrolimus mass conc (Bld) 4.4 ng/mL Low 5.0-20.0 [facility] Comment on above: Result Comment: The [employer] Tacrolimus assay is a delayed one-step immunoassayfor the quantitative determination of tacrolimus in human whole bloodusing the chemiluminescent microparticle immunoassay (CMIA) technologywith flexible assay protocols, referred to as Chemiflex. Performed By: #### 4 1000, 99325, 75092, 71306, 90340, 12042 ####[facility] [address], [place] URIC ACID BLOODon 05-27-2017 Urate mass conc 4.6 mg/dL Normal 2.3-6.6 [facility] Comment on above: Performed By: #### 4 1000, 95358, 04673, 74735, 73634, 28537 ####[facility].[address] CBC W/DIFFon 04-29-2017 ABS BASOPHILS 0.0 10*3/uL Normal 0.0-0.2 [facility] Comment on above: Performed By: #### 4 1000, 75107, 75056, 46617, 82393, 99528 ####[facility].[address] ABS IMM GRANS 0.0 10*3/uL Normal 0.0-0.2 [facility] Comment on above: Performed By: #### 4 1000, 55867, 36597, 31652, 97117, 47442 ####[facility] ABS NEUTROPHILS 4.6 10*3/uL Normal 1.6-7.6 [facility] Comment on above: Performed By: #### 4 1000, 65334, 88908, 69806, 69230, 78175 ####[facility].[address] Basophils Auto #/vol (Bld) 0.3 % Normal 0.0-1.0 [facility] Comment on above: Performed By: #### 4 1000, 77740, 91124, 78276, 02908, 78100 ####[facility].[address] Eosinophils Auto #/vol (Bld) 0.1 10*3/uL Normal 0.0-0.5 [facility] Comment on above: Performed By: #### 4 1000, 73424, 39695, 27646, 39098, 18665 ####[facility] Eosinophils/100 WBC Auto (Bld) 1.7 % Normal 0.0-6.0 [facility] Comment on above: Performed By: #### 4 1000, 69167, 09751, 38540, 36995, 80871 ####[facility] Erythrocyte distribution width Auto Ratio (RBC) 13.7 % Normal 11.5-15.0 [facility] Comment on above: Performed By: #### 4 1000, 04142, 21890, 70097, 70544, 32869 ####[facility] Hematocrit Auto Volume Fraction (Bld) 45.0 % Normal 36.0-45.0 [facility] Comment on above: Performed By: #### 4 1000, 24292, 74810, 01801, 73195, 90604 ####[facility].[address] Hemoglobin mass conc (Bld) 14.9 g/dL Normal 12.0-15.0 [facility] Comment on above: Performed By: #### 4 1000, 11555, 68767, 18541, 28998, 52324 ####[facility].[address] IMMATURE GRANS 0.3 % Normal 0.0-1.0 [facility] Comment on above: Performed By: #### 4 1000, 08344, 75090, 47840, 10269, 06627 ####[facility] Lymphocytes Auto #/vol (Bld) 0.9 10*3/uL Low 1.2-4.0 [facility] Comment on above: Performed By: #### 4 1000, 10293, 18424, 37302, 08982, 11854 ####[facility] Lymphocytes/100 WBC Auto (Bld) 14.2 % Low 20.0-45.0 [facility] Comment on above: Performed By: #### 4 1000, 72153, 58482, 88001, 37845, 08870 ####[facility] MCH Auto Entitic mass (RBC) 29.4 pg Normal 27.0-33.0 [facility] Comment on above: Performed By: #### 4 1000, 05203, 13266, 31139, 22653, 87791 ####[facility] MCHC Auto mass conc (RBC) 33.1 g/dL Normal 32.0-35.0 [facility] Comment on above: Performed By: #### 4 1000, 47261, 58109, 25133, 95307, 94883 ####[facility] MCV Auto Entitic volume (RBC) 88.8 fL Normal 82.0-98.0 [facility] Comment on above: Performed By: #### 4 1000, 13896, 15011, 20526, 06663, 23771 ####[facility] Monocytes Auto #/vol (Bld) 0.8 10*3/uL Normal 0.1-1.0 [facility] Comment on above: Performed By: #### 4 1000, 39092, 31619, 39732, 57169, 06523 ####[facility] MONOS 12.2 % High 5.0-12.0 [facility] Comment on above: Performed By: #### 4 1000, 62854, 54227, 65129, 34334, 39733 ####[facility] Neutrophils/100 WBC Auto (Bld) 71.3 % Normal 40.0-72.0 [facility] Comment on above: Performed By: #### 4 1000, 75382, 81535, 29536, 81468, 04521 ####[facility] Nucleated RBC/100 WBC Ratio (Bld) 0 % Normal 0-0 [facility] Comment on above: Performed By: #### 4 1000, 35878, 30753, 92455, 61889, 09782 ####[facility] PLAT CNT 215 10*3/uL Normal 150-400 [facility] Comment on above: Performed By: #### 4 1000, 45815, 41061, 78482, 68687, 66689 ####[facility] RBC Auto #/vol (Bld) 5.07 10*6/uL High 3.80-5.00 [facility] Comment on above: Performed By: #### 4 1000, 75091, 42454, 08946, 04889, 06085 ####[facility] WBC Auto #/vol (Bld) 6.5 10*3/uL Normal 4.0-10.6 [facility] Comment on above: Performed By: #### 4 1000, 96866, 46253, 55053, 90926, 90125 ####[facility] COMP METABOLIC PANELon 04-29 Albumin mass conc 4.4 g/dL Normal 3.5-5.7 [facility] Comment on above: Performed By: #### 4 1000, 16178, 63562, 23344, 78141, 55203 ####[facility] [place] [address], [place] ALKALINE PHOSPH 114 IU/L High 34-104 [facility] Comment on above: Performed By: #### 4 1000, 59556, 19706, 21525, 85722, 94407 ####[facility] [place] [address], [place] ALT enzyme act/vol 15 U/L Normal 7-52 [facility] Comment on above: Performed By: #### 4 1000, 57744, 14747, 64032, 86500, 10652 ####[facility] [place] [address], [place] AST enzyme act/vol 19 U/L Normal 13-39 [facility] Comment on above: Performed By: #### 4 1000, 70272, 40242, 31933, 55311, 90637 ####[facility] [place] [address], [place] Bilirubin mass conc 0.7 mg/dL Normal 0.3-1.0 [facility] Comment on above: Performed By: #### 4 1000, 52504, 84777, 71480, 38582, 48955 ####[facility] [place] [address], [place] Calcium mass conc 9.6 mg/dL Normal 8.6-10.3 [facility] Comment on above: Performed By: #### 4 1000, 18381, 88842, 15483, 75768, 89034 ####[facility].[place] [id number], [place] Chloride molar conc 103 mmol/L Normal 98-107 [facility] Comment on above: Performed By: #### 4 1000, 55031, 74350, 77098, 34143, 67753 ####[facility] [place] [address], [place] CO2 molar conc 29 mmol/L Normal 21-31 [facility] Comment on above: Performed By: #### 4 1000, 76750, 20704, 58181, 09396, 91719 ####[facility] [place] [address], [place] Creatinine mass conc 0.79 mg/dL Normal 0.60-1.20 [facility] Comment on above: Performed By: #### 4 1000, 02924, 64574, 85498, 19444, 85723 ####[facility] [place] [address], [place] GFR/1.73 sq M predicted among blacks MDRD vol rate/area (S/P/Bld) mL/min/{1.73_m2} Normal >60 [facility] Comment on above: Performed By: #### 4 1000, 39457, 98122, 40522, 71967, 81677 ####[facility] [place] [address], [place] GFR/1.73 sq M predicted among non-blacks MDRD vol rate/area (S/P/Bld) mL/min/{1.73_m2} Normal >60 [facility] Comment on above: Performed By: #### 4 1000, 92676, 60761, 54785, 85892, 67002 ####[facility] [place] [address], [place] Glucose mass conc 90 mg/dL Normal 70-100 [facility] Comment on above: Performed By: #### 4 1000, 97853, 53559, 46391, 29416, 48252 ####[facility] [place] [address], [place] Potassium molar conc 3.8 mmol/L Normal 3.5-5.1 [facility] Comment on above: Performed By: #### 4 1000, 05341, 50938, 87144, 46056, 76222 ####[facility] Protein mass conc 7.2 g/dL Normal 6.0-8.3 [facility] Comment on above: Performed By: #### 4 1000, 34009, 04750, 42653, 35756, 69204 ####[facility] Sodium molar conc 140 mmol/L Normal 136-145 [facility] Comment on above: Performed By: #### 4 1000, 89618, 33610, 28205, 69572, 77001 ####[facility] Urea nitrogen mass conc 15 mg/dL Normal 7-25 [facility] Comment on above: Performed By: #### 4 1000, 08926, 76915, 97249, 76201, 12097 ####[facility] DIRECT BILIon 04-29-2017 Bilirubin.direct mass conc 0.1 mg/dL Normal 0.0-0.2 [facility] Comment on above: Order Comment: Liver Battery conflicts with Comprehensive Metabolic Panel. Liver Battery canceled and Direct Bilirubin added. Performed By: #### 4 1000, 13014, 03468, 14632, 11964, 55783 ####[facility] EVEROLIMUS 67694ms 8 EVEROLIMUS 5.4 ng/mL Normal [facility] Comment on above: Result Comment: Ther apeutic [...] the transplantcenter.Test developed and characteristics determined by [employer]. See Compliance Statement B: Verified Person/CSPerformed by [employer],[address] [place] [address] 10758 hsp.Verified Person, Leonid Antonio MD - Lab. Director LIPID PROFILEon 04-29-2017 Cholesterol in HDL mass conc 49 mg/dL Normal 23-92 [facility] Comment on above: Result Comment: Slig ht variation in normal range could be due to gender and/or age.HDL CHOLESTEROL REFERENCE RANGE:20 years and older Cardiovascular Risk> or =60 mg/dL Dowcqapps15 TO 59 mg/dL Low Risk<40 mg/dL High Risk Performed By: #### 4 1000, 13080, 00195, 97073, 05133, 62448 ####[facility].[address] Cholesterol in LDL mass conc 52 mg/dL Normal 0-130 [facility] Comment on above: Result Comment: LDL IS A CALCULATIONLDL IS ONLY VALID IF THE TRIG IS LESS THAN 400. Performed By: #### 4 1000, 45242, 42038, 26468, 43463, 06946 ####[facility] [place] [address], [place] Cholesterol mass conc 122 mg/dL Normal 120-200 [facility] Comment on above: Result Comment: CHOL ESTEROL REFERENCE RANGE:20 YEARS AND OLDER CARDIOVASCULAR RISKLess than 200 mg/dl Low Aizv157 to 239 mg/dl Borderline Oilh075 mg/dl and greater High Risk Performed By: #### 4 1000, 80589, 94947, 77492, 33898, 06598 ####[facility] Cholesterol.total/C holesterol in HDL mass ratio 2.5 {ratio} Normal .0-4.5 [facility] Comment on above: Performed By: #### 4 1000, 04238, 56421, 83992, 57401, 27001 ####[facility] NON-HDL CHOLESTEROL 73 mg/dL Normal [facility] Comment on above: Performed By: #### 4 1000, 86388, 66322, 34575, 85471, 44685 ####[facility].[address] Triglyceride mass conc 106 mg/dL Normal 40-149 [facility] Comment on above: Result Comment: TRIG LYCERIDE REFERENCE RANGE:20 YEARS AND OLDER CARDIOVASCULAR RISKLESS THAN 150 mg/dl LOW [id number] TO 199 mg/dl BORDERLINE MRPD210 mg/dl AND GREATER HIGH RISK Performed By: #### 4 1000, 14082, 94255, 32122, 03229, 82451 ####[facility].[address] VLDL CHOL 21 mg/dL Normal 0-40 [facility] Comment on above: Performed By: #### 4 1000, 69171, 05640, 13683, 32665, 06367 ####[facility].[address] MAGNESIUM BLOODon 04-29-2017 Magnesium mass conc 2.1 mg/dL Normal 1.9-2.7 [facility] Comment on above: Performed By: #### 4 1000, 99437, 85950, 62374, 81140, 01217 ####[facility] PHOSPHORUS BLOODon 8 Phosphate mass conc 3.3 mg/dL Normal 2.5-5.0 [facility] Comment on above: Performed By: #### 4 1000, 64103, 85479, 18906, 64199, 17093 ####[facility] TACROLIMUSon 04-29-2017 Tacrolimus mass conc (Bld) 4.6 ng/mL Low 5.0-20.0 [facility] Comment on above: Result Comment: [facility] [place] Tacrolimus assay is a delayed one-step immunoassayfor the quantitative determination of tacrolimus in human whole bloodusing the chemiluminescent microparticle immunoassay (CMIA) technologywith flexible assay protocols, referred to as Chemiflex. Performed By: #### 4 1000, 88868, 12134, 75832, 79095, 95645 ####[facility] URIC ACID BLOODon 04-29-2017 Urate mass conc 4.6 mg/dL Normal 2.3-6.6 [facility] Comment on above: Performed By: #### 4 1000, 29853, 67775, 26547, 55902, 35365 ####[place] [id number] CBC W/DIFFon 03-27-2017 Basophils Auto #/vol (Bld) 0.2 % Normal 0.0-2.0 [facility] Comment on above: Performed By: #### 4 1000, 92968, 15603, 69690, 25758, 26370 ####[place] [address] Eosinophils/100 WBC Auto (Bld) 1.8 % Normal 0.0-5.0 [facility] Comment on above: Performed By: #### 4 1000, 24971, 31776, 41319, 68790, 90118 ####[facility] Erythrocyte distribution width Auto Ratio (RBC) 13.6 % Normal 11.5-16.9 [facility] Comment on above: Performed By: #### 4 1000, 69970, 90416, 60765, 35531, 99269 ####[facility] Hematocrit Auto Volume Fraction (Bld) 47.6 % Normal 36.0-48.0 [facility] Comment on above: Performed By: #### 4 1000, 77403, 84216, 56038, 37873, 51927 ####[facility] Hemoglobin mass conc (Bld) 15.8 g/dL High 12.0-15.0 [facility] Comment on above: Performed By: #### 4 1000, 25989, 00221, 64683, 27493, 83130 ####[facility] Lymphocytes/100 WBC Auto (Bld) 14.5 % Low 20.0-40.0 [facility] Comment on above: Performed By: #### 4 1000, 66774, 77610, 16328, 86748, 66732 ####[facility] MCH Auto Entitic mass (RBC) 29.0 pg Normal 24.0-32.0 [facility] Comment on above: Performed By: #### 4 1000, 52933, 54640, 77712, 15798, 55195 ####[facility] MCHC Auto mass conc (RBC) 33.3 g/dL Normal 32.0-36.0 [facility] Comment on above: Performed By: #### 4 1000, 00531, 67813, 09803, 85344, 26308 ####[facility] MCV Auto Entitic volume (RBC) 87.4 fL Normal 80.0-100.0 [facility] Comment on above: Performed By: #### 4 1000, 12838, 91009, 42728, 07547, 62077 ####[facility] METHOD Normal RBC Morphology Normal [facility] Comment on above: Performed By: #### 4 1000, 79006, 52941, 11880, 84134, 24410 ####[facility] MONOS 9.6 % High 2-8 [facility] Comment on above: Performed By: #### 4 1000, 47274, 74419, 69388, 98050, 24532 ####[facility] Neutrophils/100 WBC Auto (Bld) 73.9 % High 50-70 [facility] Comment on above: Performed By: #### 4 1000, 43823, 32032, 80916, 32076, 90178 ####[facility] PLAT CNT 228 Thou/mm3 Normal 100-400 The [facility] Comment on above: Performed By: #### 4 1000, 09326, 70312, 15688, 27103, 74944 ####[facility] RBC Auto #/vol (Bld) 5.45 mill/mm3 Normal 3.50-5.50 [facility] Comment on above: Performed By: #### 4 1000, 27974, 57881, 81504, 85038, 54735 ####[facility] WBC Auto #/vol (Bld) 6.5 Thou/mm3 Normal 4.0-10.0 [facility] Comment on above: Performed By: #### 4 1000, 09421, 09321, 11960, 82245, 87712 ####[facility] COMP METABOLIC PANELon 03-27 Albumin mass conc 4.7 g/dL Normal 3.5-5.7 [facility] Comment on above: Performed By: #### 4 1000, 70387, 85497, 56075, 70631, 26126 ####[facility] ALKALINE PHOSPH 99 IU/L Normal 34-104 [facility] Comment on above: Performed By: #### 4 1000, 77309, 95515, 98246, 48370, 70906 ####[facility] ALT enzyme act/vol 19 U/L Normal 7-52 [facility] Comment on above: Performed By: #### 4 1000, 27443, 87984, 63613, 87569, 15637 ####[facility] [place] [address], [place] AST enzyme act/vol 21 U/L Normal 13-39 [facility] Comment on above: Performed By: #### 4 1000, 75090, 59946, 03751, 23714, 75845 ####[facility] Bilirubin mass conc 0.6 mg/dL Normal 0.3-1.0 [facility] Comment on above: Performed By: #### 4 1000, 08386, 81516, 85503, 91992, 91895 ####[facility] [place] [address], [place] Calcium mass conc 10.2 mg/dL Normal 8.6-10.3 [facility] Comment on above: Performed By: #### 4 1000, 52120, 79467, 31869, 73886, 68649 ####[facility] [place] [address], [place] Chloride molar conc 104 mmol/L Normal 98-107 [facility] Comment on above: Performed By: #### 4 1000, 48605, 67488, 20909, 21732, 27675 ####[facility] [place] [address], [place] CO2 molar conc 28 mmol/L Normal 21-31 [facility] Comment on above: Performed By: #### 4 1000, 92679, 46891, 96649, 53131, 43281 ####[facility] [place] [address], [place] Creatinine mass conc 0.78 mg/dL Normal 0.60-1.20 [facility] Comment on above: Performed By: #### 4 1000, 02244, 65178, 61804, 01221, 22291 ####[facility] [place] [address], [place] GFR/1.73 sq M predicted among blacks MDRD vol rate/area (S/P/Bld) mL/min/{1.73_m2} Normal >60 [facility] Comment on above: Performed By: #### 4 1000, 97588, 64543, 83288, 86968, 11380 ####[facility] [place] [address], [place] GFR/1.73 sq M predicted among non-blacks MDRD vol rate/area (S/P/Bld) mL/min/{1.73_m2} Normal >60 [facility] Comment on above: Performed By: #### 4 1000, 94912, 33414, 45587, 70326, 75600 ####[facility] [place] [address], [place] Glucose mass conc 87 mg/dL Normal 70-100 [facility] Comment on above: Performed By: #### 4 1000, 53628, 89424, 30297, 96917, 05704 ####[facility] [place] [address], [place] Potassium molar conc 4.1 mmol/L Normal 3.5-5.1 [facility] Comment on above: Performed By: #### 4 1000, 09714, 32493, 18889, 06436, 93265 ####[facility] [place] [address], [place] Protein mass conc 7.8 g/dL Normal 6.0-8.3 [facility] Comment on above: Performed By: #### 4 1000, 82241, 96898, 36129, 26933, 48341 ####[facility] [place] [address], [place] Sodium molar conc 139 mmol/L Normal 136-145 [facility] Comment on above: Performed By: #### 4 1000, 25373, 21394, 57542, 34369, 75891 ####[facility] [place] [address], [place] Urea nitrogen mass conc 19 mg/dL Normal 7-25 [facility] Comment on above: Performed By: #### 4 1000, 36810, 61139, 54410, 32328, 94173 ####[facility] [place] [address], [place] DIRECT BILIon 03-27-2017 Bilirubin.direct mass conc 0.1 mg/dL Normal 0.0-0.2 [facility] Comment on above: Performed By: #### 4 1000, 02257, 63170, 27582, 68813, 15653 ####[facility] EVEROLIMUS [id number] 7 EVEROLIMUS 5.3 ng/mL Normal [facility] Comment on above: Result Comment: Ther apeutic [...] the transplantcenter.Test developed and characteristics determined by [facility]. See Compliance Statement B: [employer]/CSPerformed by [employer],[address] [place] [id number] zwm.Verified Person, Leonid Antonio MD - Lab. Director LIPID PROFILEon 03-27-2017 Cholesterol in HDL mass conc 50 mg/dL Normal 23-92 [facility] Comment on above: Result Comment: Slig ht variation in normal range could be due to gender and/or age.HDL CHOLESTEROL REFERENCE RANGE:20 years and older Cardiovascular Risk> or =60 mg/dL Ptrlfwsze53 TO 59 mg/dL Low Risk<40 mg/dL High Risk Performed By: #### 4 1000, 69494, 77269, 59036, 17037, 59557 ####[facility] [place] [address], [place] Cholesterol in LDL mass conc 66 mg/dL Normal 0-130 [facility] Comment on above: Result Comment: LDL IS A CALCULATIONLDL IS ONLY VALID IF THE TRIG IS LESS THAN 400. Performed By: #### 4 1000, 55757, 39422, 55805, 03666, 66444 ####[facility] [place] [address], [place] Cholesterol mass conc 147 mg/dL Normal 120-200 [facility] Comment on above: Result Comment: CHOL ESTEROL REFERENCE RANGE:20 YEARS AND OLDER CARDIOVASCULAR RISKLess than 200 mg/dl Low Vqfy008 to 239 mg/dl Borderline Keer236 mg/dl and greater High Risk Performed By: #### 4 1000, 64499, 60983, 27150, 38299, 75100 ####[facility] [place] [address], [place] Cholesterol.total/C holesterol in HDL mass ratio 2.9 {ratio} Normal .0-4.5 [facility] Comment on above: Performed By: #### 4 1000, 00583, 21676, 40459, 99483, 95466 ####[facility] [place] [address], [place] NON-HDL CHOLESTEROL 97 mg/dL Normal [facility] Comment on above: Performed By: #### 4 1000, 41270, 86945, 51429, 31714, 51115 ####[facility] [place] [address], [place] Triglyceride mass conc 157 mg/dL High 40-149 [facility] Comment on above: Result Comment: TRIG LYCERIDE REFERENCE RANGE:20 YEARS AND OLDER CARDIOVASCULAR RISKLESS THAN 150 mg/dl LOW [id number] TO 199 mg/dl BORDERLINE [id number] mg/dl AND GREATER HIGH RISK Performed By: #### 4 1000, 53126, 68686, 14682, 23715, 82716 ####[facility] VLDL CHOL 31 mg/dL Normal 0-40 [facility] Comment on above: Performed By: #### 4 1000, 78510, 12638, 58381, 50667, 49120 ####[facility] MAGNESIUM BLOODon 03-27-2017 Magnesium mass conc 1.9 mg/dL Normal 1.9-2.7 [facility] Comment on above: Performed By: #### 4 1000, 20704, 35583, 95225, 23565, 10195 ####[facility] [facility].[address] PHOSPHORUS BLOODon 7 Phosphate mass conc 3.4 mg/dL Normal 2.5-5.0 [facility] Comment on above: Performed By: #### 4 1000, 10471, 47010, 77039, 56685, 27076 ####[facility] [facility].[address] TACROLIMUSon 03-27-2017 Tacrolimus mass conc (Bld) 3.7 ng/mL Low 5.0-20.0 [facility] Comment on above: Result Comment: [facility] Tacrolimus assay is a delayed one-step immunoassayfor the quantitative determination of tacrolimus in human whole bloodusing the chemiluminescent microparticle immunoassay (CMIA) technologywith flexible assay protocols, referred to as Chemiflex. Performed By: #### 4 1000, 74424, 58239, 48862, 09849, 64743 ####[facility] [facility].[address] URIC ACID BLOODon 03-27-2017 Urate mass conc 4.1 mg/dL Normal 2.3-6.6 [facility] Comment on above: Performed By: #### 4 1000, 97933, 15841, 35882, 81987, 72858 ####[place] [address] [facility].[address] BK VIRUS QUANTITATION PCR BL OODon 02-26-2017 BKV QUANT PCR Not detected Normal [facility] Comment on above: Result Comment: Meth od: BK virus was measured by quantitative polymerase chain reactionusing a TaqMan probe targeting the polyomavirus BK CERTIFIED PROSTHETIST/ORTHOTIST-1 gene.The lower limit of quantitation of the assay is 500 copies of BK genomeper milliliter of plasma or urine, and any detectable BK DNA below thatlevel is reported as: Detected, <500 copies/ml. Serial BK virusmeasurement can be used to monitor disease activity. (Reference:Kelsie vaughanl. J CLIN MICRO 2004; 42:3317-8688).This test was developed and its performance characteristics determinedby the [facility]. It has not been approvedby the US Food and Drug Administration. However, such approval is notrequired for clinical implementation, and test results have been shownto be clinically useful. This laboratory is CAP accredited and CLIAcertified to perform high complexity testing. Performed By: #### 4 1000, 09205, 64757, 49726, 56523, 45338 ####[place] [address] [facility].[address] LOG 10 COPIES Not detected Normal [facility] Comment on above: Performed By: #### 4 1000, 39081, 28219, 34799, 86434, 30380 ####[address] CBC W/DIFFon 02-26-2017 Basophils Auto #/vol (Bld) 0.3 % Normal 0.0-2.0 [facility] Comment on above: Performed By: #### 5 0103 ####[address] Eosinophils/100 WBC Auto (Bld) 2.2 % Normal 0.0-5.0 [facility] Comment on above: Performed By: #### 5 0103 ####[address] [place] [address], [place] Erythrocyte distribution width Auto Ratio (RBC) 13.8 % Normal 11.5-16.9 [facility] Comment on above: Performed By: #### 5 0103 ####[facility].[address] Hematocrit Auto Volume Fraction (Bld) 44.9 % Normal 36.0-48.0 [facility] Comment on above: Performed By: #### 5 0103 ####[facility].[address] Hemoglobin mass conc (Bld) 15.0 g/dL Normal 12.0-15.0 [facility] Comment on above: Performed By: #### 5 3 ####[place] [address] Lymphocytes/100 WBC Auto (Bld) 18.9 % Low 20.0-40.0 [facility] Comment on above: Performed By: #### 5 3 ####[facility].[address] MCH Auto Entitic mass (RBC) 28.9 pg Normal 24.0-32.0 [facility] Comment on above: Performed By: #### 5 3 ####[facility].[address] MCHC Auto mass conc (RBC) 33.4 g/dL Normal 32.0-36.0 [facility] Comment on above: Performed By: #### 5 3 ####[facility] MCV Auto Entitic volume (RBC) 86.6 fL Normal 80.0-100.0 [facility] Comment on above: Performed By: #### 5 3 ####[facility] METHOD Normal RBC Morphology Normal [facility] Comment on above: Performed By: #### 5 0103 ####[facility] MONOS 11.7 % High 2-8 [facility] Comment on above: Performed By: #### 5 0103 ####[facility] Neutrophils/100 WBC Auto (Bld) 66.9 % Normal 50-70 [facility] Comment on above: Performed By: #### 5 0103 ####[facility] PLAT CNT 230 Thou/mm3 Normal 100-400 The [facility] Comment on above: Performed By: #### 5 0103 ####[facility] RBC Auto #/vol (Bld) 5.18 mill/mm3 Normal 3.50-5.50 [facility] Comment on above: Performed By: #### 5 0103 ####[facility] WBC Auto #/vol (Bld) 5.8 Thou/mm3 Normal 4.0-10.0 [facility] Comment on above: Performed By: #### 5 0103 ####[facility] COMP METABOLIC PANELon 02-26 Albumin mass conc 4.7 g/dL Normal 3.5-5.7 [facility] Comment on above: Performed By: #### 4 1000, 83068, 37271, 99170, 47203, 87498 ####[facility] ALKALINE PHOSPH 115 IU/L High 34-104 [facility] Comment on above: Performed By: #### 4 1000, 92258, 89706, 53642, 63263, 75929 ####[facility] [place] [address], [place] ALT enzyme act/vol 18 U/L Normal 7-52 [facility] Comment on above: Performed By: #### 4 1000, 31313, 91970, 33883, 28525, 16304 ####[facility] [place] [address], [place] AST enzyme act/vol 22 U/L Normal 13-39 [facility] Comment on above: Performed By: #### 4 1000, 55121, 97045, 70509, 60473, 81391 ####[facility] [place] [address], [place] Bilirubin mass conc 0.6 mg/dL Normal 0.3-1.0 [facility] Comment on above: Performed By: #### 4 1000, 56580, 62742, 77183, 89693, 64708 ####[facility] [place] [address], [place] Calcium mass conc 9.8 mg/dL Normal 8.6-10.3 [facility] Comment on above: Performed By: #### 4 1000, 37685, 80525, 51870, 28985, 40122 ####[facility] [place] [address], [place] Chloride molar conc 103 mmol/L Normal 98-107 [facility] Comment on above: Performed By: #### 4 1000, 33773, 42438, 12592, 55709, 93742 ####[facility] [place] [address], [place] CO2 molar conc 29 mmol/L Normal 21-31 [facility] Comment on above: Performed By: #### 4 1000, 65531, 95925, 39587, 79752, 00237 ####[facility] [place] [address], [place] Creatinine mass conc 0.78 mg/dL Normal 0.60-1.20 [facility] Comment on above: Performed By: #### 4 1000, 52473, 41479, 12201, 70970, 91080 ####[facility] [place] [address], [place] GFR/1.73 sq M predicted among blacks MDRD vol rate/area (S/P/Bld) mL/min/{1.73_m2} Normal >60 [facility] Comment on above: Performed By: #### 4 1000, 76931, 30925, 17413, 12946, 05201 ####[facility] [place] [address], [place] GFR/1.73 sq M predicted among non-blacks MDRD vol rate/area (S/P/Bld) mL/min/{1.73_m2} Normal >60 [facility] Comment on above: Performed By: #### 4 1000, 94188, 52097, 91539, 48688, 02399 ####[facility] [place] [address], [place] Glucose mass conc 94 mg/dL Normal 70-100 [facility] Comment on above: Performed By: #### 4 1000, 94574, 95811, 00857, 16129, 93554 ####[facility] [place] [address], [place] Potassium molar conc 3.8 mmol/L Normal 3.5-5.1 [facility] Comment on above: Performed By: #### 4 1000, 41804, 27216, 08514, 93255, 11916 ####[facility] Protein mass conc 7.4 g/dL Normal 6.0-8.3 [facility] Comment on above: Performed By: #### 4 1000, 27254, 51276, 70359, 70306, 56638 ####[facility].[address] Sodium molar conc 136 mmol/L Normal 136-145 [facility] Comment on above: Performed By: #### 4 1000, 66156, 04465, 64627, 77902, 46773 ####[facility] Urea nitrogen mass conc 19 mg/dL Normal 7-25 [facility] Comment on above: Performed By: #### 4 1000, 98304, 67006, 66466, 96245, 71344 ####[facility] DIRECT BILIon 02-26-2017 Bilirubin.direct mass conc 0.1 mg/dL Normal 0.0-0.2 [facility] Comment on above: Performed By: #### 4 1000, 77332, 96889, 36114, 97058, 36858 ####[facility] EVEROLIMUS [id number] 7 EVEROLIMUS 5.9 ng/mL Normal [facility] Comment on above: Result Comment: Ther apeutic [...] the transplantcenter.Test developed and characteristics determined by [facility]. See Compliance Statement B: Verified Person/CSPerformed by [employer],[address] [place] [address] zix.Verified Person, Leonid Antonio MD - Lab. Director HEMOGLOBIN A1Con 02-26-2017 Glucose mass conc 108 mg/dL Normal 70-126 [facility] Comment on above: Performed By: #### 4 6447, 85906 ####[facility] Hemoglobin A1c/Hemoglobin.tota l mass fraction (Bld) 5.4 % Normal 4.0-6.0 [facility] Comment on above: Performed By: #### 4 0547, 39156 ####[facility] [facility] [place] [address], [place] LIPID PROFILEon 02-26-2017 Cholesterol in HDL mass conc 54 mg/dL Normal 23-92 [facility] Comment on above: Result Comment: Slig ht variation in normal range could be due to gender and/or age.HDL CHOLESTEROL REFERENCE RANGE:20 years and older Cardiovascular Risk> or =60 mg/dL Odlzaslew53 TO 59 mg/dL Low Risk<40 mg/dL High Risk Performed By: #### 4 1000, 67375, 56502, 09184, 32953, 83131 ####[facility] [facility] [place] [address], [place] Cholesterol in LDL mass conc 70 mg/dL Normal 0-130 [facility] Comment on above: Result Comment: LDL IS A CALCULATIONLDL IS ONLY VALID IF THE TRIG IS LESS THAN 400. Performed By: #### 4 1000, 55778, 32201, 41429, 66852, 78450 ####[facility] [address], [place] Cholesterol mass conc 144 mg/dL Normal 120-200 [facility] Comment on above: Result Comment: CHOL ESTEROL REFERENCE RANGE:20 YEARS AND OLDER CARDIOVASCULAR RISKLess than 200 mg/dl Low Jwvh410 to 239 mg/dl Borderline Wyqc828 mg/dl and greater High Risk Performed By: #### 4 1000, 88199, 78203, 86610, 34311, 41329 ####[facility] [facility] [address], [place] Cholesterol.total/C holesterol in HDL mass ratio 2.7 {ratio} Normal .0-4.5 [facility] Comment on above: Performed By: #### 4 1000, 58229, 86382, 50208, 04646, 13944 ####[facility] [address], [place] NON-HDL CHOLESTEROL 90 mg/dL Normal [facility] Comment on above: Performed By: #### 4 1000, 21892, 01017, 04869, 45990, 42678 ####[facility] [facility] [place] [address], [place] Triglyceride mass conc 101 mg/dL Normal 40-149 [facility] Comment on above: Result Comment: TRIG LYCERIDE REFERENCE RANGE:20 YEARS AND OLDER CARDIOVASCULAR RISKLESS THAN 150 mg/dl LOW [id number] TO 199 mg/dl BORDERLINE [id number] mg/dl AND GREATER HIGH RISK Performed By: #### 4 1000, 39999, 96316, 15348, 32633, 36114 ####[facility] [place] [address], [place] VLDL CHOL 20 mg/dL Normal 0-40 [facility] Comment on above: Performed By: #### 4 1000, 12730, 70368, 90034, 91748, 24371 ####[facility] [facility] [place] [address], [place] MAGNESIUM BLOODon 02-26-2017 Magnesium mass conc 1.9 mg/dL Normal 1.9-2.7 [facility] Comment on above: Performed By: #### 4 1000, 89856, 59910, 95804, 86543, 07907 ####[facility]3000 [facility].[address] PHOSPHORUS BLOODon 7 Phosphate mass conc 4.1 mg/dL Normal 2.5-5.0 [facility] Comment on above: Performed By: #### 4 1000, 37540, 14131, 35237, 87246, 58346 ####[facility]3000 [facility].[address] TACROLIMUSon 02-26-2017 Tacrolimus mass conc (Bld) 4.2 ng/mL Low 5.0-20.0 [facility] Comment on above: Result Comment: [facility] Tacrolimus assay is a delayed one-step immunoassayfor the quantitative determination of tacrolimus in human whole bloodusing the chemiluminescent microparticle immunoassay (CMIA) technologywith flexible assay protocols, referred to as Chemiflex. Performed By: #### 4 [id number], [id number] ####[facility] URIC ACID BLOODon 02-26-2017 Urate mass conc 4.3 mg/dL Normal 2.3-6.6 [facility] Comment on above: Performed By: #### 4 1000, 30469, 93059, 23872, 87061, 54883 ####[place] [id number] Vital Signs Date Time Vital Sign Value Performing Clinician Facility 03-27-2023 11:30-0500 Body height 152.4 cm Cathy Bella Other [facility] Other 03-27-2023 11:30-0500 Body mass index (BMI) [Ratio] 25.39 kg/m2 Cathy Bella Other [facility] Other 03-27-2023 11:30-0500 Body temperature 97.5 [degF] Cathy Bella Other [facility] Other 03-27-2023 11:30-0500 Body weight 58.97 kg Cathy Bella Other [facility] Other 03-27-2023 11:30-0500 Respiratory rate 18 /min Cathy Bella Other [facility] Other 03-27-2023 11:30-0500 SaO2% (BldA) [Mass fraction] 96 % Cathy Bella Other [facility] Other 09-21-2022 09:00-0400 Body height 152.4 cm Martha Paola Other [facility] Other 09-21-2022 09:00-0400 Body mass index (BMI) [Ratio] 22.46 kg/m2 Martha Paola Other [facility] Other 09-21-2022 09:00-0400 Body temperature 97.6 [degF] Martha Paola Other [facility] Other 09-21-2022 09:00-0400 Body weight 52.16 kg Martha Paola Other [facility] Other 09-21-2022 09:00-0400 Diastolic blood pressure 70 mm[Hg] Martha Paola Other [facility] Other 09-21-2022 09:00-0400 Respiratory rate 18 /min Martha Guevara Other [facility] Other 09-21-2022 09:00-0400 SaO2% (BldA) [Mass fraction] 96 % Martha Guevara Other [facility] Other 09-21-2022 09:00-0400 Systolic blood pressure 107 mm[Hg] Martha Guevara Other [facility] Other 01-12-2022 13:55-0400 Body height 152.4 cm Cathy Bella Other [facility] Other 01-12-2022 13:55-0400 Body mass index (BMI) [Ratio] 19.53 kg/m2 Cathy Bella Other [facility] Other 01-12-2022 13:55-0400 Body temperature 96.9 [degF] Cathy Bella Other [facility] Other 01-12-2022 13:55-0400 Body weight 45.36 kg Cathy Bella Other [facility] Other 01-12-2022 13:55-0400 Respiratory rate 18 /min Cathy Bella Other [facility] Other 01-12-2022 13:55-0400 SaO2% (BldA) [Mass fraction] 97 % Cathy Bella Other [facility] Other 12-28-2021 10:20-0400 Body height 152.4 cm Martha Paola Other [facility] Other 12-28-2021 10:20-0400 Body mass index (BMI) [Ratio] 21.48 kg/m2 Martha Guevara Other [facility] Other 12-28-2021 10:20-0400 Body temperature 98 [degF] Martha Smtihmond Other [facility] Other 12-28-2021 10:20-0400 Body weight 49.9 kg Martha Guevara Other [facility] Other 12-28-2021 10:20-0400 Respiratory rate 18 /min Martha Guevara Other [facility] Other 12-28-2021 10:20-0400 SaO2% (BldA) [Mass fraction] 97 % Martha Guevara Other [facility] Other 12-25-2021 10:05-0400 Body height 152.4 cm Cathy Bella Other [facility] Other 12-25-2021 10:05-0400 Body mass index (BMI) [Ratio] 21.48 kg/m2 Cathy Bella Other [facility] Other 12-25-2021 10:05-0400 Body temperature 96 [degF] Cathy Bella Other [facility] Other 12-25-2021 10:05-0400 Body weight 49.9 kg Cathy Bella Other [facility] Other 12-25-2021 10:05-0400 Respiratory rate 18 /min Cathy Bella Other [facility] Other 12-25-2021 10:05-0400 SaO2% (BldA) [Mass fraction] 97 % Cathy Bella Other [facility] Other 10-27-2021 12:35-0400 Body height 152.4 cm Cathy Bella Other [facility] Other 10-27-2021 12:35-0400 Body mass index (BMI) [Ratio] 22.85 kg/m2 Cathy Bella Other [facility] Other 10-27-2021 12:35-0400 Body weight 53.07 kg Cathy Bella Other [facility] Other 10-27-2021 12:35-0400 Diastolic blood pressure 87 mm[Hg] Cathy Bella Other [facility] Other 10-27-2021 12:35-0400 SaO2% (BldA) [Mass fraction] 98 % Cathy Bella Other [facility] Other 10-27-2021 12:35-0400 Systolic blood pressure 130 mm[Hg] Cathy Bella Other [facility] Other 08-14-2021 10:40-0400 Body height 152.4 cm Martha Guevara Other [facility] Other 08-14-2021 10:40-0400 Body mass index (BMI) [Ratio] 22.46 kg/m2 Martha Guevara Other [facility] Other 08-14-2021 10:40-0400 Body temperature 96.7 [degF] Martha Guevara Other [facility] Other 08-14-2021 10:40-0400 Body weight 52.16 kg Martha Paola Other [facility] Other 08-14-2021 10:40-0400 Diastolic blood pressure 68 mm[Hg] Martha Paola Other [facility] Other 08-14-2021 10:40-0400 Respiratory rate 20 /min Martha Paola Other [facility] Other 08-14-2021 10:40-0400 SaO2% (BldA) [Mass fraction] 98 % Martha Paola Other [facility] Other 08-14-2021 10:40-0400 Systolic blood pressure 144 mm[Hg] Martha Paola Other [facility] Other Encounters Encounter Date Encounter Type Care Provider Facility Start: 04-02-2023 End: 04-02-2023 ambulatory RAMON CARROLL Not Available Start: 03-27-2023 End: 03-27-2023 ambulatory Cathy Bella Other [facility] Other Start: 03-27-2023 Office outpatient visit 25 minutes Cathy Bella [facility] Start: 03-17-2023 End: 03-17-2023 ambulatory VIRGIL HAYNES [facility] Start: 03-06-2023 End: 03-06-2023 ambulatory JOHN PADILLA Not Available Start: 02-12-2023 End: 02-12-2023 ambulatory JOHN PADILLA Not Available Start: 09-21-2022 End: 09-21-2022 ambulatory Martha Guevara Other [facility] Other Start: 09-21-2022 Office outpatient visit 15 minutes Martha Paola [facility] Start: 09-17-2022 End: 09-17-2022 ambulatory VIRGIL [facility] Start: 08-12-2022 End: 08-13-[address] DOE BRIDGES Facility:[facility] Start: 07-23-2022 End: 07-24-[address] RAMON CARROLL Facility:[facility] Start: 07-08-2022 End: 07-09-[address] RAMON CARROLL Facility:[facility] Start: 06-10-2022 End: 06-11-[address] DOE BRIDGES Facility:[facility] Start: 05-10-2022 End: 05-11-[address] DOE BRIDGES Facility:[facility] Start: 04-08-2022 End: 04-09-[address] DOE BRIDGES Facility:[facility] Start: 03-19-2022 End: 03-19-2022 ambulatory VIRGIL [facility] Start: 03-11-2022 End: 03-12-[address] DOCTOR CERNA Facility:[facility] Start: 02-08-2022 End: 02-09-[address] DOE BRIDGES Facility:[facility] Start: 01-28-2022 End: 01-29-[address] DOCTOR CERNA Facility:[facility] Start: 01-12-2022 End: 01-12-2022 ambulatory Cathy Bella Other [facility] Other Start: 01-12-2022 Office outpatient visit 15 minutes Cathy Bella [facility] Start: 01-07-2022 End: 01-07-2022 ambulatory ISATU GUAMAN . Facility:[facility] Start: 01-03-2022 End: 01-04-[address] VIRGIL SWIFT Facility:[facility] Start: 12-28-2021 End: 12-28-2021 ambulatory Martha Guevara Other [facility] Other Start: 12-28-2021 Office outpatient visit 15 minutes Marthajd Guevara [facility] Start: 12-25-2021 End: 12-25-2021 ambulatory Cathy Bella Other [facility] Other Start: 12-25-2021 Office outpatient visit 25 minutes Cathy Shayne [facility] Start: 12-05-2021 End: 12-06-[address] DOCTOR MISC Facility:[facility] Start: 11-07-2021 End: 11-08-[address] DOCTOR MISC Facility:[facility] Start: 10-27-2021 End: 10-27-2021 ambulatory Cathy Bella Other [facility] Other Start: 10-27-2021 Office outpatient visit 15 minutes Cathy Shayne [facility] Start: 10-15-2021 End: 10-16-[address] DOCTOR MISC Facility:[facility] Start: 10-08-2021 End: 10-09-[address] DOCTOR MISC Facility:[facility] Start: 09-10-2021 End: 09-11-[address] DOCTOR MISC Facility:[facility] Start: 08-14-2021 End: 08-14-2021 ambulatory Martha Guevara Other [facility] Other Start: 08-14-2021 Office outpatient visit 15 minutes Martha Guevara [facility] Start: 12-31-2017 End: 01-01-2018 Patient encounter VIRGIL HAYNES Facility:[facility] Start: 12-25-2017 End: 12-26-2017 Patient encounter ROSALINDAMAGDALENO ROSENBAUM Facility:[facility] Start: 10-30-2017 End: 10-31-2017 Patient encounter ROSALINDA ROSENBAUM Facility:[facility] Start: 10-23-2017 End: 10-24-2017 Patient encounter ROSALINDA ROSENBAUM Facility:[facility] Start: 09-25-2017 End: 09-26-2017 Patient encounter ROSALINDA ROSENBAUM Facility:[facility] Start: 08-26-2017 End: 08-27-2017 Patient encounter ROSALINDA ROSENBAUM Facility:[facility] Start: 07-23-2017 End: 07-24-2017 Patient encounter ROSALINDA ROSENBAUM Facility:[facility] Start: 06-20-2017 End: 06-21-2017 Patient encounter ROSALINDA ROSENBAUM Facility:[facility] Start: 05-27-2017 End: 05-28-2017 Patient encounter ROSALINDA ROSENBAUM Facility:[facility] Start: 04-29-2017 End: 04-30-2017 Patient encounter ROSALINDA ROSENBAUM Facility:[facility] Start: 03-27-2017 End: 03-28-2017 Patient encounter ROSALINDA ROSENBAUM Facility:[facility] Start: 02-26-2017 End: 02-27-2017 Patient encounter DOE BRIDGES Facility:[facility] Procedures Date Procedure Procedure Detail Performing Clinician Start: 08-14-2021 Piperacillin/tazobactam Martha Guevara Other Immunizations Immunization Date Immunization Notes Care Provider Fa kathleen 03-16-2009 influenza virus vaccine, split virus (incl. purified surface antigen) Martha Guevara Other [facility] Other Payers Date Payer Category Payer Medicare [id number] 1958 [facility] [id number] 1959 Self-pay 1959 Unknown [id number] 1956 Unknown [id number] 2.16.8 40.1.044092.3.579.2.647 1956 Unknown [id number] 2.16.8 40.1.575267.3.579.2.647 1956 Unknown [id number] 2.16.8 40.1.003848.3.579.2.647 1956 Unknown [id number] 2.16.8 40.1.132272.3.579.2.647 1956 Unknown [id number] 2.16.8 40.1.489284.3.579.2.647 1956 Unknown [id number] 2.16.8 40.1.438040.3.579.2.647 1956 Unknown [id number] 2.16.8 40.1.438956.3.579.2.647 1956 Unknown [id number] 2.16.8 40.1.605828.3.579.2.647 1956 Unknown [id number] 2.16.8 40.1.705273.3.579.2.647 1956 Unknown [id number] 2.16.8 40.1.647898.3.579.2.647 1956 Unknown [id number] 2.16.8 40.1.101551.3.579.2.647 1956 Unknown [id number] 2.16.8 40.1.762876.3.579.2.647 1956 Unknown [id number] 2.16.84 0.1.456422.3.579.2.593 1956 Unknown [id number] 2.16.84 0.1.873875.3.579.2.593 1956 Unknown [id number] 2.16.84 0.1.352376.3.579.2.593 1956 Unknown [id number] 2.16.84 0.1.852594.3.579.2.593 1956 Unknown [id number] 2.16.84 0.1.886362.3.579.2.593 1956 Unknown [id number] 2.16.84 0.1.706883.3.579.2.593 1956 Unknown [id number] 2.16.84 0.1.109673.3.579.2.593 1956 Unknown [id number] 2.16.84 0.1.642953.3.579.2.593 1956 Unknown [id number] 2.16.84 0.1.177219.3.579.2.593 1956 Unknown [id number] 2.16.84 0.1.113615.3.579.2.593 1956 Unknown [id number] 2.16.84 0.1.216959.3.579.2.593 1956 Unknown [id number] 2.16.84 0.1.557333.3.579.2.593 1956 Unknown [id number] 2.16.84 0.1.396267.3.579.2.593 1956 Unknown [id number] 2.16.84 0.1.065279.3.579.2.593 1956 Unknown [id number] 2.16.84 0.1.047142.3.579.2.593 1956 Unknown [id number] 2.16.840 .1.559582.3.579.2.1259 1956 Unknown [id number] 2.16.840 .1.714093.3.579.2.1259 1956 Unknown [id number] 2.16.840 .1.199951.3.579.2.1259 Unknown [id number] 2.16.84 0.1.615805.3.579.2.593 Social History Date Type Detail Facility Unknown if ever smoked [facility] Other Sex Assigned At Sex Assigned At Bir th [facility] Other Clinical Notes 11-10-2007 to 03-27-2023 Note [...] and rest, Tylenol as directed, rx of Mary Alice, cool mist humidifier, throat lozenges. Discussed infection [...] condition. Feb, Sore throat (ICD-10 - J02.9) [facility] Other 12-18-2023 Note03/17/23 Chief Complaint Patient presents with Kidney Follow-up Patient would like to know if Virgil would prescribe depression medication. PCP: Ramon Carroll MD Txp Referring: Preferred Pharmacy: [facility] [place], [place] - [address] [facility] [address] [id number] [place], [place] [address] [place] [phone] [facility] - [place], [place] - [address] [place] [address] [facility] [address] Subjective Visit Vitals BP 142/80 (BP Location: Right arm, Patient Position: Sitting) Pulse 63 Temp 36.3 ???C (97.4 ???F) (Oral) Ht 1.524 m (5') Wt 60.6 kg (133 lb 9.6 oz) BMI 26.09 kg/m??? Smoking Status Never BSA 1.6 m??? No Known Allergies Medication Documentation Review Audit Reviewed by Tosha Lagos MA (Firewall Administrator) on 03/17/23 at 0956 Medication Order Taking? Sig Documenting Provider Last Dose Status amLODIPine (Norvasc) 5 mg tablet [id number] Yes TAKE 1 TABLET BY MOUTH EVERY DAY Virgil Haynes NP Taking Active amoxicillin (Amoxil) 500 mg capsule [id number] No 1 capsule every 8 (eight) hours. Historical Provider, Not Taking Active atorvastatin (Lipitor) 20 mg tablet [id number] Yes TAKE 1 TABLET BY MOUTH EVERY DAY AT BEDTIME Virgil Haynes NP Taking Active baclofen (Lioresal) 10 mg tablet [id number] Yes Historical Provider, Taking Active cyanocobalamin (Vitamin B-12) 500 mcg tablet [id number] No in the morning. Historical Provider, Not Taking Active magnesium oxide (Mag-Ox) 400 mg (241.3 mg magnesium) tablet [id number] Yes Take 400 mg by mouth in the morning. Historical Provider, Taking Active mycophenolate (Myfortic) 180 mg EC tablet [id number] Yes TAKE 4 TABLETS BY MOUTH IN THE MORNING AND AT BEDTIME Doe Bridges MD Taking Active omega-3 fatty acids-fish oil (Fish OiL Extra Strength) 435-880 mg capsule [id number] No 1 capsule 1 (one) time each day at the same time. Historical Provider, Not Taking Active PARoxetine (Paxil) 10 mg tablet [id number] Yes Take 10 mg by mouth in the morning. Historical Provider, Taking Active potassium gluconate 595 mg (99 mg) tablet [id number] No every 12 (twelve) hours. Historical Provider, Not Taking Active spironolactone (Aldactone) 25 mg tablet [id number] Yes TAKE 1 TABLET BY MOUTH EVERY DAY Virgil Haynes NP Taking Active tacrolimus (Prograf) 0.5 mg capsule [id number] Yes TAKE ONE CAPSULE BY MOUTH EVERY MORNING AND 1 CAPSULE EVERY NIGHT AT BEDTIME Anthony Kunz MD Taking Active Immunization History Administered Date(s) Administered Caroline [...] Pt states labs done Last week in [facility] and [place] calling for results. Pt seeing Derm in [place] for lesion: forearm and other lesions. Hx: [...] Hgb. Pt AGAIN instructed to use our [facility] Transplant standing order for her monthly labs. Pt reports B/P stable at home Discussed hydration PLan of Care: Continue meds and MONTHLY Labs with [facility] standing Order. Follow up 6 [...] ; Creat 0.9 ; (more content not included)...[facility]10-18-2023 Note Reviewed Ext Tac 3.6 over the phone with Dr. Vivas, per phone order no changes at this time.[facility]07-14-2023 NoteReviewed labs from 10/09/22, no changes.[facility]06-20-2023 Note 09/17/22 Chief Complaint Patient presents with Kidney Follow-up Patient has no new concerns PCP: Ramon Carroll MD Txp Referring: Preferred Pharmacy: [facility] - [place], [place] - [address] [facility] [address] [id number] [place], [place] - [address] [facility] & [address] [address] Subjective Visit Vitals BP 123/81 (BP Location: Right arm, Patient Position: Sitting, BP Cuff Size: Adult) Pulse 77 Temp 36.7 ???C (98.1 ???F) Ht 1.524 m (5') Wt 58.1 kg (128 lb) BMI 25.00 kg/m??? Smoking Status Never BSA 1.57 m??? No Known Allergies Medication Documentation Review Audit Reviewed by LUANN HERNÁNDEZ (Firewall Administrator) on 09/17/22 at 1019 Medication Order Taking? Sig Documenting Provider Last Dose Status amLODIPine (Norvasc) 5 mg tablet [id number] Take 5 mg by mouth in the morning. Yasmin Mancia MD Active amoxicillin (Amoxil) 500 mg capsule [id number] 1 capsule every 8 (eight) hours. Yasmin Mancia MD Active atorvastatin (Lipitor) 20 mg tablet [id number] Take 20 mg by mouth in the morning. Yasmin Mancia MD Active cyanocobalamin (Vitamin B-12) 500 mcg tablet [id number] in the morning. Yasmin Mancia MD Active magnesium oxide (Mag-Ox) 400 mg (241.3 mg magnesium) tablet [id number] Take 400 mg by mouth in the morning. Yasmin Mancia MD Active mycophenolate (Myfortic) 180 mg EC tablet [id number] Take 4 tablets (720 mg) by mouth in the morning and at bedtime. Patient should take as directed BID Doe Bridges MD Active omega-3 fatty acids-fish oil (Fish OiL Extra Strength) 435-880 mg capsule [id number] 1 capsule 1 (one) time each day at the same time. Yasmin Mancia MD Active potassium gluconate 595 mg (99 mg) tablet [id number] every 12 (twelve) hours. Yasmin Mancia MD Active spironolactone (Aldactone) 25 mg tablet [id number] Take 25 mg by mouth in the morning. Yasmin Mancia MD Active tacrolimus (Prograf) 0.5 mg capsule [id number] Take 1 capsule (0.5 mg) by mouth in the morning and at bedtime. Take 1mg tacrolimus PO Qam and 0.5mg PO Qpm or as directed TDD 2mg, z94.0 Anthony Kunz MD Active tacrolimus (Prograf) 1 mg capsule [id number] Take 1 capsule (1 mg) by mouth [...] had intermittent mild bilateral (more content not included)...[facility]12-20-2022 Note03/19/22 Chief Complaint Patient presents with Kidney Follow-up Pateint has no current concerns PCP: Ramon Carroll MD Txp Referring: Preferred Pharmacy: [facility] - [place], [place] - [address] [facility] [address] [id number] & [address] [phone] Subjective There were no vitals taken for [...] See PCP as schedul (more content not included)...[facility]10-15-2022 Evaluation note* Encounter Date Diagnosis Assessment Notes [...] understanding and is agreeable with treatment plan [facility] Other 09-30-2022 Evaluation note* Encounter Date Diagnosis [...] no improvement in 2 to 3 days. [facility] Other 09-27-2022 Evaluation note* Encounter Date Diagnosis [...] treatment plan. Patient left in stable condition [facility] Other 07-30-2022 Evaluation note* Encounter Date Diagnosis [...] follow up with PCP or return to UC sooner if symptoms worsen despite treatment, or if she begins experiencing increased redness, warmth, swelling, or pain of affected area. 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 she had a son Medical History hypertension Medical History kidney transplant Surgical History resection of superior cervical mass 11/10/07 Surgical History Teeth extraction in preparation for renal transplant Surgical History portacath placement Surgical History kidney transplant 2014 Hospitalization History see above [facility] [employer] [facility] [employer] Other History [facility] - [facility] [employer] Other Summary Purpose Family History No Family [...] and content) DATE CREATED AUTHOR 01/30/2018 [facility] DATE CREATED AUTHOR AUTHOR'S ORGANIZ ATION 08/17/2021 [facility] DATE CREATED AUTHOR AUTHOR'S ORGANIZ ATION 08/13/2022 [facility] DATE CREATED AUTHOR AUTHOR'S ORGANIZ ATION 03/17/2023 [facility] DATE CREATED AUTHOR AUTHOR'S ORGANIZ ATION 04/03/2023 [facility] EPIC REASON FOR VISIT (unrecogniz ed section and content) DYSURIADYSURIADYSURIAPOSS RA SH ON BACK, ITCHINGDODGE JOURNEY, SORE THROAT, COUGHBLACK DODGE JOURNT SORE THROATIN CAR, MOUTH SORES, CALL [phone] THROAT, COUGHING, DRAINAGE FOR RECORDS PERTAINING TO [...] BE BASED ON THE PRIMARY CLINICAL RECORDS. [employer] provides no warranty or guarantee of the accuracy or completeness of information in this document.
[2023-05-19 07:24] LABS: Basophils Percent Auto 0.2 % (0.2-2.0); Eosinophils Absolute Auto 0.1 10^3/uL (0.0-0.7); Eosinophils Percent Auto 1.9 % (0.9-7.0); Hematocrit 42.8 % (36.0-48.0); Hemoglobin 13.6 g/dL (12.0-16.0); Immature Granulocytes Abs Auto 0.01 10^3/uL (0.00-0.03); Immature Granulocytes Pct Auto 0.2 % (0.0-0.5); Lymphocytes Absolute Auto 1.1 10^3/uL (1.2-3.8); Lymphocytes Percent Auto 19.1 % (20.5-60.0); Mean Corpuscular HGB Conc 31.8 g/dL (29.9-35.2); Mean Corpuscular Hemoglobin 30.5 pg (26.7-34.0); Mean Platelet Volume 11.5 fL (9.5-13.5); Monocytes Absolute Auto 0.6 10^3/uL (0.3-0.8); Monocytes Percent Auto 10.7 % (1.7-12.0); Neutrophils Percent Auto 67.9 % (43.0-75.0); Platelet Count 198 10^3/uL (150-450); Red Blood Count 4.46 10^6/uL (4.20-5.40); Red Cell Distribution Width 15.1 % (11.0-15.0); White Blood Count 5.9 10^3/uL (4.0-11.0)
[2023-05-19 07:37] LABS: Estimated Average Glucose 111 mg/dL; Glycohemoglobin A1C 5.5 % (4.5-6.2)
[2023-05-19 08:10] LABS: Alanine Aminotransferase 14 U/L (14-59); Albumin Level 3.4 g/dL (3.4-5.0); Alkaline Phosphatase 114 U/L (46-116); Anion Gap 12.5; Aspartate Amino Transferase 11 U/L (15-37); BUN Creatinine Ratio 24.1; Bilirubin Direct 0.1 mg/dL (0.0-0.2); Bilirubin Total 0.5 mg/dL (0.2-1.0); Calcium 9.2 mg/dL (8.5-10.1); Carbon Dioxide 28.4 mmol/L (21.0-32.0); Chloride 104 mmol/L (98-107); Chol HDL Ratio 2.4; Cholesterol 122 mg/dL (<=200); Estimated GFR (African America >60 (>=60); Estimated GFR (Non-African Ame >60 (>=60); Globulin 3.3 g/dL; Glucose 90 mg/dL (74-106); HDL Cholesterol 51 mg/dL (40-60); LDL Cholesterol Calculated 56.4 mg/dL; Magnesium 1.7 mg/dL (1.8-2.4); Phosphorus 3.2 mg/dL (2.6-4.7); Potassium 3.9 mmol/L (3.5-5.1); Sodium 141 mmol/L (136-145); Total Protein 6.7 g/dL (6.4-8.2); Triglycerides 73 mg/dL (<=150); VLDL CHOLESTEROL 14.6 mg/dL
[2023-05-21 13:10] LABS: BKV DNA, Quant PCR, Plasma Negative (Negative)
== END 2023-05-19 06:41 | disposition home or self-care (01) ==
LOC: LAB 06:42
PROVIDERS: PCP Internal Medicine
DX: Z48.298 Encounter for aftercare following other organ transplant (principal); Z79.899 Other long term (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 therapy; Z94.0 Kidney transplant status
CPT/HCPCS: 36415; 80053; 80061; 80076; 80197; 83036; 83735; 84100; 84550; 85025; 87799

== ENCOUNTER 2023-06-11 06:38 | Outpatient (OUT) | payer MEDICARE, SELFPAY ==
--- OUTSIDE RECORDS SUMMARY | 2023-06-11 06:44 | XMS_ITS | CCD ---
Author Name Unknown Address [id number] [place] [address] Organization [facility] Care Team Providers Care Customer Program Manager Name Role Phone GUIDIVILLE DINKAR Unavailable Unavailable GUIDIVILLE, DINKAR Unavailable Unavailable CARROLL, RAMON Unavailable Unavailable [...] Attending Unavailable MISC, DR OBRIEN Admitting Unavailable GUIDIVILLE, DR CONNORS Consulting Unavailable CARROLL, DR DARBY Primary Care Unavailable MISC, DR OBRIEN Attending Unavailable MISC, DR OBRIEN Admitting Unavailable MISC, DR OBRIEN Attending Unavailable MISC, DR OBRIEN Admitting Unavailable MISC, DR OBRIEN Consulting Unavailable CARROLL, DR DARBY Primary Care Unavailable GUIDIVILLE, DR CONNORS Consulting Unavailable GUIDIVILLE, DR CONNORS Attending Unavailable CARROLL, DR DARBY Primary Care Unavailable GUIDIVILLE, DR CONNORS Admitting Unavailable GUIDIVILLE, DR CONNORS Attending Unavailable CARROLL, DR DARBY Primary Care Unavailable GUIDIVILLE, DR CONNORS Admitting Unavailable GUIDIVILLE, DR CONNORS Consulting Unavailable MISC, DR OBRIEN [...] Unavailable CARROLL, DR DARBY Primary Care Unavailable GUIDIVILLE, DR CONNORS Consulting Unavailable GUIDIVILLE, DR CONNORS Attending Unavailable CARROLL, DR DARBY Primary Care Unavailable GUIDIVILLE, DR CONNORS Admitting Unavailable MISC, DR OBRIEN Attending Unavailable MISC, DR OBRIEN Admitting Unavailable MISC, DR OBRIEN Consulting Unavailable CARROLL, DR DARBY Primary Care Unavailable MISC, DR OBRIEN Attending Unavailable [facility], DR OBRIEN Admitting Unavailable [facility], DR OBRIEN Consulting Unavailable UZMA, DR DARBY Primary Care Unavailable GUIDIVILLE, DR CONNORS Consulting Unavailable GUIDIVILLE, DR CONNORS Attending Unavailable GUIDIVILLE, DR CONNORS Admitting Unavailable UZMA, DR DARBY Primary Care Unavailable RAMON CARROLL Attending Unavailable JOHN PADILLA Attending Unavailable RANDY, JOHN Townsend Attending Unavailable VIRGIL HAYNES Attending Unavailable VIRGIL HAYNES Attending Unavailable Medications Current Medications Medication Drug Class(es) Dates Sig (Normalized) Sig (Original) [id number] 200 actuat albuterol 0.09 mg/actuat metered dose inhaler (1 source) beta2-Adrenergic Agonist Start: 12-28-2021 take 2 puff(s) by inhalation four times daily as needed Albuterol Sulfate HFA 108 (90 Base) MCG/ACT 2 puffs Inhalation 4 times a day prn Nov, Active amLODIPine (9 sources) Dihydropyridine Calcium Channel [...] 1.5 mg/ml oral solution (1 source) Uncompetitive A-gdukft-U-aspartate Receptor Antagonist, Sigma-1 Agonist Start: 03-27-20 23 take 10 mL by mouth every eight hours [place] DM 7.5-7.5 MG/5ML 10 mL Orally every 8 hours for 5 days Feb, Active ergocalciferol 1.25 mg oral capsule (9 sources) Provitamin D2 Compound Start: 06-27-19 12 take 1 capsule by mouth every week Vitamin D (Ergocalciferol) 61910 UNIT 1 capsule Orally Once a Week [...] Start: 12-25-2021 take 1 capsule by mo [facility] every eight hours Tessalon Perles 100 [...] [Depression with anxiety] Chronic Chronic kidney disease (14 sources) Anemia in chronic kidney disease; Translations: [...] [Hyperosmolality and/or hypernatremia] Episodic Genitourinary congenital anomalies (3 sources) Multiple congenital cysts of kidney; Translations: [Polycystic kidney, unspecified type] Chronic Immunizations and screening for infectious disease [...] insufficiency; 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, secondary, 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 Other nutritional; endocrine; and metabolic disorders [...] Kidney Follow-up; Translations: [Kidney Follow-up] Onset: 3 Viral infection (1 source) COVID-19; Translations: [COVID-19] Onset: 2 Past or Other Problems Problem Classification Problem Date Documented Da te Episodic/Chronic Genitourinary symptoms and ill-defined conditions (10 sources) Hematuria, unspecified; Translations: [Dysuria] Onset: 12-31-2017 Resolved: 08-14-2021 Episodic Other aftercare (1 source) Encounter for therapeutic drug level monitoring; Translations: [ENCOUNTER FOR THERAPEUTIC DRUG LEVEL MONITORING] Onset: 03-27-2017 Episodic Other aftercare (2 sources) Other intermediate teacher (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 therapy; Translations: [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) DRUG THERAPY] Onset: 02-26-2017 Episodic Other skin disorders (1 source) Rash and other nonspecific skin eruption Onset: 10-27-2021 Resolved: 10-27-2021 Episodic Unclassified (1 source) COUGH, UNSPECIFIED; Translations: [COUGH, UNSPECIFIED] Onset: 01-03-2022 Unclassified (1 source) Contact with and (suspected) exposure to covid-19 Z20.822 Urinary tract infections (3 sources) Urinary tract infection, site not specified Onset: 08-14-2021 Resolved: 08-14-2021 Episodic Results Test Name Value Interpretation Reference Range Facility Documentationon 05-19-2023 Documentation [id number] Niko Grimm 1955 F Date Provider Department Center 05/19/2023 ANEL HELLER TXGely None No family history on file Normal [facility] COVID/FLU/RSV RT-PCRon 03-27 SARS-CoV-2 (COVID-19) RNA MURALI+probe Ql (Unsp spec) Negative [employer] Other COVID/FLU/RSV RT-PCR Negative [employer] Other Quick Strepon 03-27-2023 S. pyogenes Org specific cx Ql (Throat) Negative [employer] Other Quick Strep [employer] Other 29on 03-17-2023 29 Addended by: TOSHA LAGOS on: 03/17/2023 11:44 AM Modules accepted: Orders Normal [facility] Follow-Upon 03-17-2023 Follow-Up [id number] Niko Grimm 1955 F Date Provider Department Center 03/17/2023 VIRGIL HAYES TXP None No family history on file Level of Service:22853 [place] OFFICE/OUTPATIENT ESTABLISHED LOW MDM 20 MIN Reason for Visit and Comments: Kidney Follow-up [[id number]] - Patient would like to know if Virgil would prescribe depression medication. Normal [facility] 36on 01-31-2023 36 Transplant Pharmacis t [...] need for taper. The patient's verbalized understanding. Orthophotography Technician added medication to med list. The patient's stated patient will be getting a DEXA scan and recommended to not have calcium 3 days before. Reviewed medication list for any products containing calcium - no medications found. No other questions or concerns at this time. Normal [facility] Telephoneon 01-31-2023 Telephone [id number] Niko Grimm 1955 F Date Provider Department Center 01/31/2023 3915-JAH PAGE TXP None No family history on file Reason for Visit and Comments: Transplant Pharmacist - Drug Information [[id number]] [facility] Documentationon 10-09-2022 Documentation [id number] Niko Grimm 1955 F Date Provider Department Center 10/09/2022 3193-KATY CRUZ TXP None No family history on file [facility] 29on 09-17-2022 29 Addended by: FERNANDA NAGEL on: 09/17/2022 12:16 PM Modules accepted: Orders Normal [facility] CREATININE, URINE, RANDOMon 09-17-2022 Creatinine (U) [Mass/Vol] 252.0 mg/dL Normal 26-299 [facility] Comment on above: Performed By: #### L [id number] ####[facility] (ANUJ[address] [place] [address] Follow-Upon 09-17-2022 Follow-Up [id number] Niko Grimm 1955 Provider Department Center 09/17/2022 124-ZEYNEPVIRGIL PARRA TXP None No family history on file Level of Service:46778 [place] OFFICE/OUTPATIENT ESTABLISHED LOW MDM 20-29 MIN Reason for Visit and Comments: Kidney Follow-up [] - Patient has no new concerns Normal [facility] PROTEIN, URINE, RANDOMon Protein (U) [Mass/Vol] 29.5 mg/dL Normal [facility] Comment on above: Result Comment: Ther e are no established reference values for random urine specimens. Performed By: #### L [id number] ####[facility] ([facility]UJ)[address] [place] [address] Documentationon 08-15-2022 Documentation [id number] Niko Grimm 1955 Provider Department Center 08/15/2022 3193-KATY CRUZ TXP None No family history on file Normal [facility] BILIRUBIN CONJUGATED (DIRECT )on 08-12-2022 BILI, CONJUGATED 0.1 mg/dL Normal 0.0-0.2 [facility] Comment on above: Performed By: #### D DAVIDSON, MG, PHOS, CMP, LIPID, URIC #### [facility] [address] [address] [address] Sarmad Patino GLYCOHEMOGLOBIN A1Con 2022 ADA RECOMMENDATION SEE BELOW Normal [facility] Comment on above: Result Comment: ADA RECOMMENDED LIMIT 4.0 - 6.0 ADA THERAPEUTIC TARGET < 7.0 ACTION SUGGESTED > 7.0 Performed By: #### D DAVIDSON, MG, PHOS, CMP, LIPID, URIC #### [facility] [address] [address] [address] Sarmad Patino Glucose [Mass/Vol] 108 mg/dL Normal [facility] Comment on above: Performed By: #### D DAVIDSON, MG, PHOS, CMP, LIPID, URIC #### [facility] [address] [place] [address] Dr. Sarmad Patino HbA1c (Bld) [Mass fraction] 5.4 % Normal 4.5-6.2 [facility] Comment on above: Performed By: #### D DAVIDSON, MG, PHOS, CMP, LIPID, URIC #### [facility] [address] [place] [address] Dr. Sarmad Patino MAGNESIUMon 08-12-2022 Magnesium [Mass/Vol] 1.7 mg/dL Critically low 1.8-2.4 [facility] Comment on above: Performed By: #### D DAVIDSON, MG, PHOS, CMP, LIPID, URIC #### [facility] [address] [place] [address] Dr. Sarmad Patino PHOSPHORUSon 08-12-2022 Phosphate [Mass/Vol] 3.9 mg/dL Normal 2.6-4.7 [facility] Comment on above: Performed By: #### U MAXI, LIPID, MG, CMP, DBIL, PHOS #### [facility] [address] [place] [address] Dr. Sarmad Patino PROF 14(COMP METB)on 023 Albumin [Mass/Vol] 3.9 g/dL Normal 3.4-5.0 [facility] Comment on above: Performed By: #### D DAVIDSON, MG, PHOS, CMP, LIPID, URIC #### [facility] [address] [place] [address] Dr. Sarmad Patino Albumin/Globulin [Mass ratio] 1.2 {ratio} Normal [facility] Comment on above: Performed By: #### D DAVIDSON, MG, PHOS, CMP, LIPID, URIC #### [facility] [address] [place] [address] Dr. Sarmad Patino ALP [Catalytic activity/Vol] 126 U/L Critically high 46-116 [facility] Comment on above: Performed By: #### D DAVIDSON, MG, PHOS, CMP, LIPID, URIC #### [facility] [address] [place] [address] Dr. Sarmad Patino ALT [Catalytic activity/Vol] 18 U/L Normal 14-59 [facility] Comment on above: Performed By: #### D DAVIDSON, MG, PHOS, CMP, LIPID, URIC #### [facility] [address] [address] [address] Sarmad Patino Anion gap [Moles/Vol] 10.4 mmol/L Normal [facility] Comment on above: Performed By: #### D DAVIDSON, MG, PHOS, CMP, LIPID, URIC #### [facility] [address] [place] [address] Dr. Sarmad Patino AST [Catalytic activity/Vol] 14 U/L Critically low 15-37 [facility] Comment on above: Performed By: #### D DAVIDSON, MG, PHOS, CMP, LIPID, URIC #### [facility] [address] [place] [address] Dr. Sarmad Patino Bilirubin [Mass/Vol] 0.7 mg/dL Normal 0.2-1.0 [facility] Comment on above: Performed By: #### D DAVIDSON, MG, PHOS, CMP, LIPID, URIC #### [facility] [address] [place] [address] Dr. Sarmad Patino Calcium [Mass/Vol] 9.8 mg/dL Normal 8.5-10.1 [facility] Comment on above: Performed By: #### D DAVIDSON, MG, PHOS, CMP, LIPID, URIC #### [facility] [address] [place] [address] Dr. Sarmad Patino Chloride [Moles/Vol] 106 mmol/L Normal 98-107 [facility] Comment on above: Performed By: #### D DAVIDSON, MG, PHOS, CMP, LIPID, URIC #### [facility] [address] [address] [address] Sarmad Patino CO2 [Moles/Vol] 32.1 mmol/L Critically high 21.0-32.0 [facility] Comment on above: Performed By: #### D DAVIDSON, MG, PHOS, CMP, LIPID, URIC #### [facility] [address] [place] [address] Dr. Sarmad Patino Creatinine [Mass/Vol] 0.92 mg/dL Normal 0.55-1.02 [facility] Comment on above: Performed By: #### D DAVIDSON, MG, PHOS, CMP, LIPID, URIC #### [facility] [address] [address] [address] Sarmad Patino EGFR-AF TANZANIAN >60 Normal >=60 [facility] Comment on above: Performed By: #### D DAVIDSON, MG, PHOS, CMP, LIPID, URIC #### [facility] [address] [address] [address] Sarmad Patino EGFR-NON AF TANZANIAN >60 Normal >=60 [facility] Comment on above: Performed By: #### D DAVIDSON, MG, PHOS, CMP, LIPID, URIC #### [facility] [address] [place] [address] Dr. Sarmad Patino Globulin (S) [Mass/Vol] 3.3 g/dL Normal [facility] Comment on above: Performed By: #### D DAVIDSON, MG, PHOS, CMP, LIPID, URIC #### [facility] [address] [address] [address] Sarmad Patino Glucose [Mass/Vol] 102 mg/dL Normal 74-106 [facility] Comment on above: Performed By: #### D DAVIDSON, MG, PHOS, CMP, LIPID, URIC #### [facility] [address] [place] [address] Dr. Sarmad Patino Potassium [Moles/Vol] 4.5 mmol/L Normal 3.5-5.1 [facility] Comment on above: Performed By: #### D DAVIDSON, MG, PHOS, CMP, LIPID, URIC #### [facility] [address] [address] [address] Sarmad Patino Protein [Mass/Vol] 7.2 g/dL Normal 6.4-8.2 [facility] Comment on above: Performed By: #### D DAVIDSON, MG, PHOS, CMP, LIPID, URIC #### [facility] [address] [address] [address] Sarmad Patino Sodium [Moles/Vol] 144 mmol/L Normal 136-145 [facility] Comment on above: Performed By: #### D DAVIDSON, MG, PHOS, CMP, LIPID, URIC #### [facility] [address] [address] [address] Sarmad Patino Urea nitrogen [Mass/Vol] 20.0 mg/dL Critically high 7.0-18.0 [facility] Comment on above: Performed By: #### D DAVIDSON, MG, PHOS, CMP, LIPID, URIC #### [facility] [address] [address] [address] Samrad Patino Urea nitrogen/Creatinine [Mass ratio] 21.7 mg/mg Normal [facility] Comment on above: Performed By: #### D DAVIDSON, MG, PHOS, CMP, LIPID, URIC #### [facility] [address] [address] [address] Sarmad Patino URIC ACID SERUMon 08-12-2022 Urate [Mass/Vol] 5.2 mg/dL Normal 2.6-6.0 [facility] Comment on above: Performed By: #### D DAVIDSON, MG, PHOS, CMP, LIPID, URIC #### [facility] [address] [address] [address] Sarmad Patino MG MAMM SCREEN 3D DAVIDSON CADon 07-23-2022 MG MAMM SCREEN 3D DAVIDSON CAD Patient: NIKO GRIMM Exam Date: 07/23/2022 : 1955 Gender:F Ordering : DR RAMON CARROLL M.D. Admission #: [id number] Family : Order #: [id number] CLICK HERE TO VIEW EXAM RADIOLOGY REPORT [...] Treatments None Family Cancers None LOCATION: [facility] BREAST COMPOSITION: Extremely dense, which lowers the [...] Bernard M.D. on 07/23/2022 at 16:59 Normal [facility] FK506 (TACROLIMUS) WHOLE BLO ODon 07-10-2022 Tacrolimus (FK506), Blood 3.8 ng/mL Normal 2.0-20.0 [facility] Comment on above: Result Comment: Trou gh (immediately following transplant) 15.0 . Trough (steady state, 2 weeks or more after transplant): 3.0 - 8.0 . Performed by LC-MS/MS technology. Performed By: #### D DAVIDSON, MG, PHOS, CMP, LIPID, URIC #### [facility] [address] [address] [address] Sarmad Patino BILIRUBIN CONJUGATED (DIRECT )on 07-08-2022 BILI, CONJUGATED 0.1 mg/dL Normal 0.0-0.2 [facility] Comment on above: Performed By: #### U MAXI, LIPID, MG, CMP, DBIL, PHOS #### [facility] [address] [address] [address] Sarmad Patino GLYCOHEMOGLOBIN A1Con 2022 ADA RECOMMENDATION SEE BELOW Normal [facility] Comment on above: Result Comment: ADA RECOMMENDED LIMIT 4.0 - 6.0 ADA THERAPEUTIC TARGET < 7.0 ACTION SUGGESTED > 7.0 Performed By: #### D DAVIDSON, MG, PHOS, CMP, LIPID, URIC #### [facility] [address] [address] [address] Sarmad Patino Glucose [Mass/Vol] 105 mg/dL Normal [facility] Comment on above: Performed By: #### D DAVIDSON, MG, PHOS, CMP, LIPID, URIC #### [facility] [address] [place] [address] Dr. Sarmad Patino HbA1c (Bld) [Mass fraction] 5.3 % Normal 4.5-6.2 [facility] Comment on above: Performed By: #### D DAVIDSON, MG, PHOS, CMP, LIPID, URIC #### [facility] [address] [place] [address] Dr. Sarmad Patino MAGNESIUMon 07-08-2022 Magnesium [Mass/Vol] 1.8 mg/dL Normal 1.8-2.4 [facility] Comment on above: Performed By: #### U MAXI, LIPID, MG, CMP, DBIL, PHOS #### [facility] [address] [place] [address] Dr. Sarmad Patino PHOSPHORUSon 07-08-2022 Phosphate [Mass/Vol] 3.8 mg/dL Normal 2.6-4.7 [facility] Comment on above: Performed By: #### U MAXI, LIPID, MG, CMP, DBIL, PHOS #### [facility] [address] [place] [address] Dr. Sarmad Patino PROF 14(COMP METB)on 023 Albumin [Mass/Vol] 3.7 g/dL Normal 3.4-5.0 [facility] Comment on above: Performed By: #### U MAXI, LIPID, MG, CMP, DBIL, PHOS #### [facility] [address] [place] [address] Dr. Sarmad Patino Albumin/Globulin [Mass ratio] 1.1 {ratio} Normal [facility] Comment on above: Performed By: #### U MAXI, LIPID, MG, CMP, DBIL, PHOS #### [facility] [address] [place] [address] Dr. Sarmad Patino ALP [Catalytic activity/Vol] 124 U/L Critically high 46-116 [facility] Comment on above: Performed By: #### U MAXI, LIPID, MG, CMP, DBIL, PHOS #### [facility] [address] [place] [address] Dr. Sarmad Patino ALT [Catalytic activity/Vol] 20 U/L Normal 14-59 [facility] Comment on above: Performed By: #### U MAXI, LIPID, MG, CMP, DBIL, PHOS #### [facility] [address] [place] [address] Dr. Sarmad Patino Anion gap [Moles/Vol] 11.5 mmol/L Normal [facility] Comment on above: Performed By: #### U MAXI, LIPID, MG, CMP, DBIL, PHOS #### [facility] [address] [address] [address] Sarmad Patino AST [Catalytic activity/Vol] 12 U/L Critically low 15-37 [facility] Comment on above: Performed By: #### U MAXI, LIPID, MG, CMP, DBIL, PHOS #### [facility] [address] [place] [address] Dr. Sarmad Patino Bilirubin [Mass/Vol] 0.5 mg/dL Normal 0.2-1.0 [facility] Comment on above: Performed By: #### U MAXI, LIPID, MG, CMP, DBIL, PHOS #### [facility] [address] [place] [address] Dr. Sarmad Patino Calcium [Mass/Vol] 9.6 mg/dL Normal 8.5-10.1 [facility] Comment on above: Performed By: #### U MAXI, LIPID, MG, CMP, DBIL, PHOS #### [facility] [address] [address] [address] Sarmad Patino Chloride [Moles/Vol] 106 mmol/L Normal 98-107 [facility] Comment on above: Performed By: #### U MAXI, LIPID, MG, CMP, DBIL, PHOS #### [facility] [address] [address] [address] Sarmad Patino CO2 [Moles/Vol] 29.7 mmol/L Normal 21.0-32.0 [facility] Comment on above: Performed By: #### U MAXI, LIPID, MG, CMP, DBIL, PHOS #### [facility] [address] [place] [address] Dr. Sarmad Patino Creatinine [Mass/Vol] 0.77 mg/dL Normal 0.55-1.02 [facility] Comment on above: Performed By: #### U MAXI, LIPID, MG, CMP, DBIL, PHOS #### [facility] [address] [place] [address] Dr. Sarmad Patino EGFR-AF TANZANIAN >60 Normal >=60 [facility] Comment on above: Performed By: #### U MAXI, LIPID, MG, CMP, DBIL, PHOS #### [facility] [address] [place] [address] Dr. Sarmad Patino EGFR-NON AF TANZANIAN >60 Normal >=60 [facility] Comment on above: Performed By: #### U MAXI, LIPID, MG, CMP, DBIL, PHOS #### [facility] [address] [place] [address] Dr. Sarmad Patino Globulin (S) [Mass/Vol] 3.4 g/dL Normal [facility] Comment on above: Performed By: #### U MAXI, LIPID, MG, CMP, DBIL, PHOS #### [facility] [address] [place] [address] Dr. Sarmad Patino Glucose [Mass/Vol] 97 mg/dL Normal 74-106 [facility] Comment on above: Performed By: #### U MAXI, LIPID, MG, CMP, DBIL, PHOS #### [facility] [address] [place] [address] Dr. Sarmad Patino Potassium [Moles/Vol] 4.2 mmol/L Normal 3.5-5.1 [facility] Comment on above: Performed By: #### U MAXI, LIPID, MG, CMP, DBIL, PHOS #### [facility] [address] [address] [address] Sarmad Patino Protein [Mass/Vol] 7.1 g/dL Normal 6.4-8.2 [facility] Comment on above: Performed By: #### U MAXI, LIPID, MG, CMP, DBIL, PHOS #### [facility] [address] [place] [address] Dr. Sarmad Patino Sodium [Moles/Vol] 143 mmol/L Normal 136-145 [facility] Comment on above: Performed By: #### U MAXI, LIPID, MG, CMP, DBIL, PHOS #### [facility] [address] [place] [address] Dr. Sarmad Patino Urea nitrogen [Mass/Vol] 26.0 mg/dL Critically high 7.0-18.0 [facility] Comment on above: Performed By: #### U MAXI, LIPID, MG, CMP, DBIL, PHOS #### [facility] [address] [address] [address] Sarmad Patino Urea nitrogen/Creatinine [Mass ratio] 33.8 mg/mg Normal [facility] Comment on above: Performed By: #### U MAXI, LIPID, MG, CMP, DBIL, PHOS #### [facility] [address] [place] [address] Dr. Sarmad Patino URIC ACID SERUMon 07-08-2022 Urate [Mass/Vol] 4.7 mg/dL Normal 2.6-6.0 [facility] Comment on above: Performed By: #### U MAXI, LIPID, MG, CMP, DBIL, PHOS #### [facility] [address] [place] [address] Dr. Sarmad Patino FK506 (TACROLIMUS) WHOLE BLO ODon 06-13-2022 Tacrolimus (FK506), Blood 3.0 ng/mL Normal 2.0-20.0 [facility] Comment on above: Result Comment: Trou gh (immediately following transplant) 15.0 . Trough (steady state, 2 weeks or more after transplant): 3.0 - 8.0 . Performed by LC-MS/MS technology. Performed By: #### D DAVIDSON, MG, PHOS, CMP, LIPID, URIC #### [facility] [address] [place] [address] Dr. Sarmad Patino BK VIRUS PCR QUANTon 023 BKV DNA QUANT PCR PLASMA Negative Normal Negative [facility] Comment on above: Result Comment: No B K DNA detected. . The linear range of the assay is 22 - 100,000,000 IU/mL. Performed By: #### B KVIRUS #### [facility] [address] [address] [address] Sarmad Patino Log10 BKV DNA Plasma Normal [facility] Comment on above: Performed By: #### B KVIRUS #### [facility] [address] [address] [address] Sarmad Patino BILIRUBIN CONJUGATED (DIRECT )on 06-10-2022 BILI, CONJUGATED 0.1 mg/dL Normal 0.0-0.2 The [facility] Comment on above: Performed By: #### U MAXI, LIPID, MG, CMP, DBIL, PHOS #### [facility] [address] [address] [address] Sarmad Patino GLYCOHEMOGLOBIN A1Con 2022 ADA RECOMMENDATION SEE BELOW Normal [facility] Comment on above: Result Comment: ADA RECOMMENDED LIMIT 4.0 - 6.0 ADA THERAPEUTIC TARGET < 7.0 ACTION SUGGESTED > 7.0 Performed By: #### D DAVIDSON, MG, PHOS, CMP, LIPID, URIC #### [facility] [address] [place] [address] Dr. Sarmad Patino Glucose [Mass/Vol] 114 mg/dL Normal [facility] Comment on above: Performed By: #### D DAVIDSON, MG, PHOS, CMP, LIPID, URIC #### [facility] [address] [place] [address] Dr. Sarmad Patino HbA1c (Bld) [Mass fraction] 5.6 % Normal 4.5-6.2 [facility] Comment on above: Performed By: #### D DAVIDSON, MG, PHOS, CMP, LIPID, URIC #### [facility] [address] [address] [address] Sarmad Patino MAGNESIUMon 06-10-2022 Magnesium [Mass/Vol] 1.6 mg/dL Critically low 1.8-2.4 [facility] Comment on above: Performed By: #### U MAXI, LIPID, MG, CMP, DBIL, PHOS #### [facility] [address] [place] [address] Dr. Sarmad Patino PROF 14(COMP METB)on 03-13-2 023 Albumin [Mass/Vol] 3.7 g/dL Normal 3.4-5.0 [facility] Comment on above: Performed By: #### U MAXI, LIPID, MG, CMP, DBIL, PHOS #### [facility] [address] [place] [address] Dr. Sarmad Patino Albumin/Globulin [Mass ratio] 1.1 {ratio} Normal [facility] Comment on above: Performed By: #### U MAXI, LIPID, MG, CMP, DBIL, PHOS #### [facility] [address] [place] [address] Dr. Sarmad Patino ALP [Catalytic activity/Vol] 142 U/L Critically high 46-116 [facility] Comment on above: Performed By: #### U MAXI, LIPID, MG, CMP, DBIL, PHOS #### [facility] [address] [place] [address] Dr. Sarmad Patino ALT [Catalytic activity/Vol] 29 U/L Normal 14-59 [facility] Comment on above: Performed By: #### U MAXI, LIPID, MG, CMP, DBIL, PHOS #### [facility] [address] [place] [address] Dr. Sarmad Patino Anion gap [Moles/Vol] 11.1 mmol/L Normal [facility] Comment on above: Performed By: #### U MAXI, LIPID, MG, CMP, DBIL, PHOS #### [facility] [address] [place] [address] Dr. Sarmad Patino AST [Catalytic activity/Vol] 19 U/L Normal 15-37 [facility] Comment on above: Performed By: #### U MAXI, LIPID, MG, CMP, DBIL, PHOS #### [facility] [address] [place] [address] Dr. Sarmad Patino Bilirubin [Mass/Vol] 0.6 mg/dL Normal 0.2-1.0 [facility] Comment on above: Performed By: #### U MAXI, LIPID, MG, CMP, DBIL, PHOS #### [facility] [address] [place] [address] Dr. Sarmad Patino Calcium [Mass/Vol] 9.8 mg/dL Normal 8.5-10.1 [facility] Comment on above: Performed By: #### U MAXI, LIPID, MG, CMP, DBIL, PHOS #### [facility] [address] [place] [address] Dr. Sarmad Patino Chloride [Moles/Vol] 103 mmol/L Normal 98-107 [facility] Comment on above: Performed By: #### U MAXI, LIPID, MG, CMP, DBIL, PHOS #### [facility] [address] [address] [address] Sarmad Patino CO2 [Moles/Vol] 30.7 mmol/L Normal 21.0-32.0 [facility] Comment on above: Performed By: #### U MAXI, LIPID, MG, CMP, DBIL, PHOS #### [facility] [address] [place] [address] Dr. Sarmad Patino Creatinine [Mass/Vol] 0.79 mg/dL Normal 0.55-1.02 [facility] Comment on above: Performed By: #### U MAXI, LIPID, MG, CMP, DBIL, PHOS #### [facility] [address] [place] [address] Dr. Sarmad Patino EGFR-AF TANZANIAN >60 Normal >=60 [facility] Comment on above: Performed By: #### U MAXI, LIPID, MG, CMP, DBIL, PHOS #### [facility] [address] [place] [address] Dr. Sarmad Patino EGFR-NON AF TANZANIAN >60 Normal >=60 [facility] Comment on above: Performed By: #### U MAXI, LIPID, MG, CMP, DBIL, PHOS #### [facility] [address] [address] [address] Sarmad Patino Globulin (S) [Mass/Vol] 3.4 g/dL Normal [facility] Comment on above: Performed By: #### U MAXI, LIPID, MG, CMP, DBIL, PHOS #### [facility] [address] [place] [address] Dr. Sarmad Patino Glucose [Mass/Vol] 94 mg/dL Normal 74-106 [facility] Comment on above: Performed By: #### U MAXI, LIPID, MG, CMP, DBIL, PHOS #### [facility] [address] [address] [address] Sarmad Patino Potassium [Moles/Vol] 3.8 mmol/L Normal 3.5-5.1 [facility] Comment on above: Performed By: #### U MAXI, LIPID, MG, CMP, DBIL, PHOS #### [facility] [address] [address] [address] Sarmad Patino Protein [Mass/Vol] 7.1 g/dL Normal 6.4-8.2 [facility] Comment on above: Performed By: #### U MAXI, LIPID, MG, CMP, DBIL, PHOS #### [facility] [address] [place] [address] Dr. Sarmad Patino Sodium [Moles/Vol] 141 mmol/L Normal 136-145 [facility] Comment on above: Performed By: #### U MAXI, LIPID, MG, CMP, DBIL, PHOS #### [facility] [address] [address] [address] Sarmad Patino Urea nitrogen [Mass/Vol] 17.0 mg/dL Normal 7.0-18.0 [facility] Comment on above: Performed By: #### U MAXI, LIPID, MG, CMP, DBIL, PHOS #### [facility] [address] [place] [address] Dr. Sarmad Patino Urea nitrogen/Creatinine [Mass ratio] 21.5 mg/mg Normal [facility] Comment on above: Performed By: #### U MAXI, LIPID, MG, CMP, DBIL, PHOS #### [facility] [address] [place] [address] Dr. Sarmad Patino URIC ACID SERUMon 06-10-2022 Urate [Mass/Vol] 5.1 mg/dL Normal 2.6-6.0 [facility] Comment on above: Performed By: #### U MAXI, LIPID, MG, CMP, DBIL, PHOS #### [facility] [address] [place] [address] Dr. Sarmad Patino BK VIRUS PCR QUANTon 023 BKV DNA QUANT PCR PLASMA Negative Normal Negative [facility] Comment on above: Result Comment: No B K DNA detected. . The linear range of the assay is 22 - 100,000,000 IU/mL. Performed By: #### U MAXI, LIPID, MG, CMP, DBIL, PHOS #### [facility] [address] [place] [address] Dr. Sarmad Patino Log10 BKV DNA Plasma Normal [facility] Comment on above: Performed By: #### U MAXI, LIPID, MG, CMP, DBIL, PHOS #### [facility] [address] [place] [address] Dr. Sarmad Patino FK506 (TACROLIMUS) WHOLE BLO ODon 05-13-2022 Tacrolimus (FK506), Blood 4.1 ng/mL Normal 2.0-20.0 [facility] Comment on above: Result Comment: Trou gh (immediately following transplant) 15.0 . Trough (steady state, 2 weeks or more after transplant): 3.0 - 8.0 . Performed by LC-MS/MS technology. Performed By: #### U MAXI, LIPID, MG, CMP, DBIL, PHOS #### [facility] [address] [place] [address] Dr. Sarmad Patino BILIRUBIN CONJUGATED (DIRECT )on 05-10-2022 BILI, CONJUGATED 0.1 mg/dL Normal 0.0-0.2 [facility] Comment on above: Performed By: #### D DAVIDSON, MG, PHOS, CMP, LIPID, URIC #### [facility] [address] [place] [address] Dr. Sarmad Patino GLYCOHEMOGLOBIN A1Con 2022 ADA RECOMMENDATION SEE BELOW Normal [facility] Comment on above: Result Comment: ADA RECOMMENDED LIMIT 4.0 - 6.0 ADA THERAPEUTIC TARGET < 7.0 ACTION SUGGESTED > 7.0 Performed By: #### D DAVIDSON, MG, PHOS, CMP, LIPID, URIC #### [facility] [address] [place] [address] Dr. Sarmad Patino Glucose [Mass/Vol] 108 mg/dL Normal [facility] Comment on above: Performed By: #### D DAVIDSON, MG, PHOS, CMP, LIPID, URIC #### [facility] [address] [address] [address] Sarmad Patino HbA1c (Bld) [Mass fraction] 5.4 % Normal 4.5-6.2 [facility] Comment on above: Performed By: #### D DAVIDSON, MG, PHOS, CMP, LIPID, URIC #### [facility] [address] [place] [address] Dr. Sarmad Patino MAGNESIUMon 05-10-2022 Magnesium [Mass/Vol] 1.9 mg/dL Normal 1.8-2.4 [facility] Comment on above: Performed By: #### U MAXI, LIPID, MG, CMP, DBIL, PHOS #### [facility] [address] [place] [address] Dr. Sarmad Patino PROF 14(COMP METB)on 023 Albumin [Mass/Vol] 3.9 g/dL Normal 3.4-5.0 [facility] Comment on above: Performed By: #### D DAVIDSON, MG, PHOS, CMP, LIPID, URIC #### [facility] [address] [place] [address] Dr. Sarmad Patino Albumin/Globulin [Mass ratio] 1.2 {ratio} Normal [facility] Comment on above: Performed By: #### D DAVIDSON, MG, PHOS, CMP, LIPID, URIC #### [facility] [address] [place] [address] Dr. Sarmad Patino ALP [Catalytic activity/Vol] 114 U/L Normal 46-116 [facility] Comment on above: Performed By: #### D DAVIDSON, MG, PHOS, CMP, LIPID, URIC #### [facility] [address] [place] [address] Dr. Sarmad Patino ALT [Catalytic activity/Vol] 18 U/L Normal 14-59 [facility] Comment on above: Performed By: #### D DAVIDSON, MG, PHOS, CMP, LIPID, URIC #### [facility] [address] [place] [address] Dr. Sarmad Patino Anion gap [Moles/Vol] 15.9 mmol/L Normal [facility] Comment on above: Performed By: #### D DAVIDSON, MG, PHOS, CMP, LIPID, URIC #### [facility] [address] [place] [address] Dr. Sarmad Patino AST [Catalytic activity/Vol] 17 U/L Normal 15-37 [facility] Comment on above: Performed By: #### D DAVIDSON, MG, PHOS, CMP, LIPID, URIC #### [facility] [address] [place] [address] Dr. Sarmad Patino Bilirubin [Mass/Vol] 0.4 mg/dL Normal 0.2-1.0 [facility] Comment on above: Performed By: #### D DAVIDSON, MG, PHOS, CMP, LIPID, URIC #### [facility] [address] [place] [address] Dr. Sarmad Patino Calcium [Mass/Vol] 9.8 mg/dL Normal 8.5-10.1 [facility] Comment on above: Performed By: #### D DAVIDSON, MG, PHOS, CMP, LIPID, URIC #### [facility] [address] [place] [address] Dr. Sarmad Patino Chloride [Moles/Vol] 103 mmol/L Normal 98-107 [facility] Comment on above: Performed By: #### D DAVIDSON, MG, PHOS, CMP, LIPID, URIC #### [facility] [address] [place] [address] Dr. Sarmad Patino CO2 [Moles/Vol] 29.2 mmol/L Normal 21.0-32.0 The [facility] Comment on above: Performed By: #### D DAVIDSON, MG, PHOS, CMP, LIPID, URIC #### [facility] [address] [place] [address] Dr. Sarmad Patino Creatinine [Mass/Vol] 0.74 mg/dL Normal 0.55-1.02 [facility] Comment on above: Performed By: #### D DAVIDSON, MG, PHOS, CMP, LIPID, URIC #### [facility] [address] [address] [address] Sarmad Patino EGFR-AF TANZANIAN >60 Normal >=60 [facility] Comment on above: Performed By: #### D DAVIDSON, MG, PHOS, CMP, LIPID, URIC #### [facility] [address] [address] [address] Sarmad Patino EGFR-NON AF TANZANIAN >60 Normal >=60 [facility] Comment on above: Performed By: #### D DAVIDSON, MG, PHOS, CMP, LIPID, URIC #### [facility] [address] [address] [address] Sarmad Patino Globulin (S) [Mass/Vol] 3.2 g/dL Normal [facility] Comment on above: Performed By: #### D DAVIDSON, MG, PHOS, CMP, LIPID, URIC #### [facility] [address] [address] [address] Sarmad Patino Glucose [Mass/Vol] 94 mg/dL Normal 74-106 [facility] Comment on above: Performed By: #### D DAVIDSON, MG, PHOS, CMP, LIPID, URIC #### [facility] [address] [address] [address] Sarmad Patino Potassium [Moles/Vol] 4.1 mmol/L Normal 3.5-5.1 [facility] Comment on above: Performed By: #### D DAVIDSON, MG, PHOS, CMP, LIPID, URIC #### [facility] [address] [address] [address] Sarmad Patino Protein [Mass/Vol] 7.1 g/dL Normal 6.4-8.2 [facility] Comment on above: Performed By: #### D DAVIDSON, MG, PHOS, CMP, LIPID, URIC #### [facility] [address] [address] [address] Sarmad Patino Sodium [Moles/Vol] 144 mmol/L Normal 136-145 [facility] Comment on above: Performed By: #### D DAVIDSON, MG, PHOS, CMP, LIPID, URIC #### [facility] [address] [address] [address] Sarmad Patino Urea nitrogen [Mass/Vol] 18.0 mg/dL Normal 7.0-18.0 [facility] Comment on above: Performed By: #### D DAVIDSON, MG, PHOS, CMP, LIPID, URIC #### [facility] [address] [address] [address] Sarmad Patino Urea nitrogen/Creatinine [Mass ratio] 24.3 mg/mg Normal [facility] Comment on above: Performed By: #### D DAVIDSON, MG, PHOS, CMP, LIPID, URIC #### [facility] [address] [address] [address] Sarmad Patino URIC ACID SERUMon 05-10-2022 Urate [Mass/Vol] 5.1 mg/dL Normal 2.6-6.0 [facility] Comment on above: Performed By: #### U MAXI, LIPID, MG, CMP, DBIL, PHOS #### [facility] [address] [address] [address] Sarmad Patino MYCOPHENOLIC ACIDon 04-17-19 Mycophenolic Acid 1.2 ug/mL Normal 1.0-3.5 [facility] Comment on above: Performed By: #### D DAVIDSON, MG, PHOS, CMP, LIPID, URIC #### [facility] [address] [place] [address] Dr. Sarmad Patino Mycophenolic Acid Glucuronide 37 ug/mL Normal 15-125 [facility] Comment on above: Result Comment: [facility] 's Reference Range: 35-100 mcg/mL. Performed By: #### D DAVIDSON, MG, PHOS, CMP, LIPID, URIC #### [facility] [address] [place] [address] Dr. Sarmad Patino FK506 (TACROLIMUS) WHOLE BLO ODon 04-10-2022 Tacrolimus (FK506), Blood 4.2 ng/mL Normal 2.0-20.0 [facility] Comment on above: Result Comment: Trou gh (immediately following transplant) 15.0 . Trough (steady state, 2 weeks or more after transplant): 3.0 - 8.0 . Performed by LC-MS/MS technology. Performed By: #### D DAVIDSON, MG, PHOS, CMP, LIPID, URIC #### [facility] [address] [place] [address] Dr. Sarmad Patino BILIRUBIN CONJUGATED (DIRECT )on 04-08-2022 BILI, CONJUGATED 0.1 mg/dL Normal 0.0-0.2 [facility] Comment on above: Performed By: #### U MAXI, LIPID, MG, CMP, DBIL, PHOS #### [facility] [address] [place] [address] Dr. Sarmad Patino CBC AUTO DIFFon 04-08-2022 BASO # 0.0 103/ul Normal 0.0-0.1 [facility] Comment on above: Performed By: #### D DAVIDSON, MG, PHOS, CMP, LIPID, URIC #### [facility] [address] [place] [address] Dr. Sarmad Patino Basophils/100 WBC (Bld) 0.3 % Normal 0.2-2.0 [facility] Comment on above: Performed By: #### D DAVIDSON, MG, PHOS, CMP, LIPID, URIC #### [facility] [address] [place] [address] Dr. Sarmad Patino EO # 0.1 103/ul Normal 0.0-0.7 [facility] Comment on above: Performed By: #### D DAVIDSON, MG, PHOS, CMP, LIPID, URIC #### [facility] [address] [place] [address] Dr. Sarmad Patino Eosinophils/100 WBC (Bld) 1.4 % Normal 0.9-7.0 [facility] Comment on above: Performed By: #### D DAVIDSON, MG, PHOS, CMP, LIPID, URIC #### [facility] [address] [place] [address] Dr. Sarmad Patino Erythrocyte distribution width (RBC) [Ratio] 15.8 % Critically high 11.0-15.0 [facility] Comment on above: Performed By: #### D DAVIDSON, MG, PHOS, CMP, LIPID, URIC #### [facility] [address] [place] [address] Dr. Sarmad Patino Hematocrit (Bld) [Volume fraction] 43.0 % Normal 36.0-48.0 [facility] Comment on above: Performed By: #### D DAVIDSON, MG, PHOS, CMP, LIPID, URIC #### [facility] [address] [place] [address] Dr. Sarmad Patino Hemoglobin (Bld) [Mass/Vol] 15.0 g/dL Normal 12.0-16.0 [facility] Comment on above: Performed By: #### D DAVIDSON, MG, PHOS, CMP, LIPID, URIC #### [facility] [address] [place] [address] Dr. Sarmad Patino IG # 0.01 10e3/ul Normal 0.00-0.03 [facility] Comment on above: Performed By: #### D DAVIDSON, MG, PHOS, CMP, LIPID, URIC #### [facility] [address] [place] [address] Dr. Sarmad Patino IG % 0.1 % Normal 0.0-0.5 [facility] Comment on above: Performed By: #### D DAVIDSON, MG, PHOS, CMP, LIPID, URIC #### [facility] [address] [place] [address] Dr. Sarmad Patino LYMPH # 1.3 103/ul Normal 1.2-3.8 [facility] Comment on above: Performed By: #### D DAVIDSON, MG, PHOS, CMP, LIPID, URIC #### [facility] [address] [place] [address] Dr. Sarmad Patino Lymphocytes/100 WBC (Bld) 18.3 % Critically low 20.5-60.0 [facility] Comment on above: Performed By: #### D DAVIDSON, MG, PHOS, CMP, LIPID, URIC #### [facility] [address] [place] [address] Dr. Sarmad Patino MANUAL DIFF REQ NO Normal [facility] Comment on above: Performed By: #### D DAVIDSON, MG, PHOS, CMP, LIPID, URIC #### [facility] [address] [place] [address] Dr. Sarmad Patino MCH (RBC) [Entitic mass] 29.7 pg Normal 26.7-34.0 [facility] Comment on above: Performed By: #### D DAVIDSON, MG, PHOS, CMP, LIPID, URIC #### [facility] [address] [place] [address] Dr. Sarmad Patino MCHC (RBC) [Mass/Vol] 34.9 g/dL Normal 29.9-35.2 [facility] Comment on above: Performed By: #### D DAVIDSON, MG, PHOS, CMP, LIPID, URIC #### [facility] [address] [place] [address] Dr. Sarmad Patino MCV (RBC) [Entitic vol] 85.1 fL Normal 81.0-99.0 [facility] Comment on above: Performed By: #### D DAVIDSON, MG, PHOS, CMP, LIPID, URIC #### [facility] [address] [place] [address] Dr. Sarmad Patino MONO # 0.7 103/ul Normal 0.3-0.8 [facility] Comment on above: Performed By: #### D DAVIDSON, MG, PHOS, CMP, LIPID, URIC #### [facility] [address] [place] [address] Dr. Sarmad Patino Monocytes/100 WBC (Bld) 9.8 % Normal 1.7-12.0 [facility] Comment on above: Performed By: #### D DAVIDSON, MG, PHOS, CMP, LIPID, URIC #### [facility] [address] [place] [address] Dr. Sarmad Patino NEUT # 5.1 103/ul Normal 1.4-6.5 [facility] Comment on above: Performed By: #### D DAVIDSON, MG, PHOS, CMP, LIPID, URIC #### [facility] [address] [place] [address] Dr. Sarmad Patino Neutrophils/100 WBC (Bld) 70.1 % Normal 43.0-75.0 [facility] Comment on above: Performed By: #### D DAVIDSON, MG, PHOS, CMP, LIPID, URIC #### [facility] [address] [address] [address] Sarmad Patino Platelet mean volume (Bld) [Entitic vol] 10.4 fL Normal 9.5-13.5 [facility] Comment on above: Performed By: #### D DAVIDSON, MG, PHOS, CMP, LIPID, URIC #### [facility] [address] [address] [address] Sarmad Patino PLT 229 103/ul Normal 150-450 [facility] Comment on above: Performed By: #### D DAVIDSON, MG, PHOS, CMP, LIPID, URIC #### [facility] [address] [place] [address] Dr. Sarmad Patino RBC 5.05 106/ul Normal 4.20-5.40 [facility] Comment on above: Performed By: #### D DAVIDSON, MG, PHOS, CMP, LIPID, URIC #### [facility] [address] [place] [address] Dr. Sarmad Patino WBC 7.2 103/ul Normal 4.0-11.0 [facility] Comment on above: Performed By: #### D DAVIDSON, MG, PHOS, CMP, LIPID, URIC #### [facility] [address] [place] [address] Dr. Sarmad Patino LIPID PROFILEon 04-08-2022 CHOL-HDL RATIO NORM SEE BELOW Normal [facility] Comment on above: Result Comment: 3.3 - 4.4 LOW RISK 4.4 - 7.1 AVERAGE RISK 7.1 - 11.0 MODERATE RISK >11.0 HIGH RISK Performed By: #### U MAXI, LIPID, MG, CMP, DBIL, PHOS #### [facility] [address] [place] [address] Dr. Sarmad Patino Cholesterol [Mass/Vol] 134 mg/dL Normal <=200 [facility] Comment on above: Performed By: #### U MAXI, LIPID, MG, CMP, DBIL, PHOS #### [facility] [address] [place] [address] Dr. Sarmad Patino Cholesterol in HDL [Mass/Vol] 55 mg/dL Normal 40-60 [facility] Comment on above: Performed By: #### U MAXI, LIPID, MG, CMP, DBIL, PHOS #### [facility] [address] [address] [address] Sarmad Patino Cholesterol in LDL [Mass/Vol] 56.6 mg/dL Normal [facility] [facility] Comment on above: Performed By: #### U MAXI, LIPID, MG, CMP, DBIL, PHOS #### [facility] [address] [address] [address] Sarmad Patino Cholesterol.total/C holesterol in HDL [Mass ratio] 2.4 {ratio} Normal [facility] Comment on above: Performed By: #### U MAXI, LIPID, MG, CMP, DBIL, PHOS #### [facility] [address] [address] [address] Sarmad Patino HDL NORMAL > or = 60 mg/dl - LO W CARDIOVASCULAR RISK <40 mg/dl - HIGH CARDIOVASCULAR RISK Normal [facility] Comment on above: Performed By: #### U MAXI, LIPID, MG, CMP, DBIL, PHOS #### [facility] [address] [address] [address] Sarmad Patino LDL CALC NORMAL SEE BELOW Normal [facility] Comment on above: Result Comment: <100 mg/dl OPTIMAL 100 - 129 mg/dl NEAR OR ABOVE OPTIMAL 130 - 159 mg/dl BORDERLINE HIGH 160 - 189 mg/dl HIGH >190 mg/dl VERY HIGH Performed By: #### U MAXI, LIPID, MG, CMP, DBIL, PHOS #### [facility] [address] [address] [address] Sarmad Patino Triglyceride [Mass/Vol] 112 mg/dL Normal <=150 [facility] Comment on above: Performed By: #### U MAXI, LIPID, MG, CMP, DBIL, PHOS #### [facility] [address] [address] [address] Sarmad Patino VLDL CALC 22.4 mg/dL Normal [facility] Comment on above: Performed By: #### U MAXI, LIPID, MG, CMP, DBIL, PHOS #### [facility] [address] [address] [address] Sarmad Patino MAGNESIUMon 04-08-2022 Magnesium [Mass/Vol] 1.8 mg/dL Normal 1.8-2.4 [facility] Comment on above: Performed By: #### U MAXI, LIPID, MG, CMP, DBIL, PHOS #### [facility] [address] [address] [address] Sarmad Patino PHOSPHORUSon 04-08-2022 Phosphate [Mass/Vol] 3.9 mg/dL Normal 2.6-4.7 [facility] Comment on above: Performed By: #### U MAXI, LIPID, MG, CMP, DBIL, PHOS #### [facility] [address] [address] [address] Sarmad Patino PROF 14(COMP METB)on 023 Albumin [Mass/Vol] 4.0 g/dL Normal 3.4-5.0 [facility] Comment on above: Performed By: #### U MAXI, LIPID, MG, CMP, DBIL, PHOS #### [facility] [address] [place] [address] Dr. Sarmad Patino Albumin/Globulin [Mass ratio] 1.3 {ratio} Normal [facility] Comment on above: Performed By: #### U MAXI, LIPID, MG, CMP, DBIL, PHOS #### [facility] [address] [place] [address] Dr. Sarmad Patino ALP [Catalytic activity/Vol] 108 U/L Normal 46-116 [facility] Comment on above: Performed By: #### U MAXI, LIPID, MG, CMP, DBIL, PHOS #### [facility] [address] [place] [address] Dr. Sarmad Patino ALT [Catalytic activity/Vol] 15 U/L Normal 14-59 [facility] Comment on above: Performed By: #### U MAXI, LIPID, MG, CMP, DBIL, PHOS #### [facility] [address] [place] [address] Dr. Sarmad Patino Anion gap [Moles/Vol] 14.3 mmol/L Normal [facility] Comment on above: Performed By: #### U MAXI, LIPID, MG, CMP, DBIL, PHOS #### [facility] [address] [address] [address] Sarmad Patino AST [Catalytic activity/Vol] 15 U/L Normal 15-37 [facility] Comment on above: Performed By: #### U MAXI, LIPID, MG, CMP, DBIL, PHOS #### [facility] [address] [address] [address] Sarmad Patino Bilirubin [Mass/Vol] 0.5 mg/dL Normal 0.2-1.0 [facility] Comment on above: Performed By: #### U MAXI, LIPID, MG, CMP, DBIL, PHOS #### [facility] [address] [place] [address] Dr. Sarmad Patino Calcium [Mass/Vol] 9.7 mg/dL Normal 8.5-10.1 [facility] Comment on above: Performed By: #### U MAXI, LIPID, MG, CMP, DBIL, PHOS #### [facility] [address] [place] [address] Dr. Sarmad Patino Chloride [Moles/Vol] 105 mmol/L Normal 98-107 [facility] Comment on above: Performed By: #### U MAXI, LIPID, MG, CMP, DBIL, PHOS #### [facility] [address] [place] [address] Dr. Sarmad Patino CO2 [Moles/Vol] 26.6 mmol/L Normal 21.0-32.0 [facility] Comment on above: Performed By: #### U MAXI, LIPID, MG, CMP, DBIL, PHOS #### [facility] [address] [place] [address] Dr. Sarmad Patino Creatinine [Mass/Vol] 0.80 mg/dL Normal 0.55-1.02 [facility] Comment on above: Performed By: #### U MAXI, LIPID, MG, CMP, DBIL, PHOS #### [facility] [address] [place] [address] Dr. Sarmad Patino EGFR-AF TANZANIAN >60 Normal >=60 [facility] Comment on above: Performed By: #### U MAXI, LIPID, MG, CMP, DBIL, PHOS #### [facility] [address] [address] [address] Sarmad Patino EGFR-NON AF TANZANIAN >60 Normal >=60 [facility] Comment on above: Performed By: #### U MAXI, LIPID, MG, CMP, DBIL, PHOS #### [facility] [address] [address] [address] Sarmad Patino Globulin (S) [Mass/Vol] 3.0 g/dL Normal [facility] Comment on above: Performed By: #### U MAXI, LIPID, MG, CMP, DBIL, PHOS #### [facility] [address] [place] [address] Dr. Sarmad Patino Glucose [Mass/Vol] 99 mg/dL Normal 74-106 [facility] Comment on above: Performed By: #### U MAXI, LIPID, MG, CMP, DBIL, PHOS #### [facility] [address] [place] [address] Dr. Sarmad Patino Potassium [Moles/Vol] 3.9 mmol/L Normal 3.5-5.1 [facility] Comment on above: Performed By: #### U MAXI, LIPID, MG, CMP, DBIL, PHOS #### [facility] [address] [place] [address] Dr. Sarmad Patino Protein [Mass/Vol] 7.0 g/dL Normal 6.4-8.2 [facility] Comment on above: Performed By: #### U MAXI, LIPID, MG, CMP, DBIL, PHOS #### [facility] [address] [address] [address] Sarmad Patino Sodium [Moles/Vol] 142 mmol/L Normal 136-145 [facility] Comment on above: Performed By: #### U MAXI, LIPID, MG, CMP, DBIL, PHOS #### [facility] [address] [place] [address] Dr. Sarmad Patino Urea nitrogen [Mass/Vol] 14.0 mg/dL Normal 7.0-18.0 [facility] Comment on above: Performed By: #### U MAXI, LIPID, MG, CMP, DBIL, PHOS #### [facility] [address] [place] [address] Dr. Sarmad Patino Urea nitrogen/Creatinine [Mass ratio] 17.5 mg/mg Normal [facility] Comment on above: Performed By: #### U MAXI, LIPID, MG, CMP, DBIL, PHOS #### [facility] [address] [place] [address] Dr. Sarmad Patino URIC ACID SERUMon 04-08-2022 Urate [Mass/Vol] 5.2 mg/dL Normal 2.6-6.0 [facility] Comment on above: Performed By: #### U MAXI, LIPID, MG, CMP, DBIL, PHOS #### [facility] [address] [place] [address] Dr. Sarmad Patino BK VIRUS PCR QUANTon 022 BKV DNA QUANT PCR PLASMA Negative Normal Negative [facility] Comment on above: Result Comment: No B K DNA detected. . The linear range of the assay is 22 - 100,000,000 IU/mL. Performed By: #### D DAVIDSON, MG, PHOS, CMP, LIPID, URIC #### [facility] [address] [place] [address] Dr. Sarmad Patino Log10 BKV DNA Plasma Normal [facility] Comment on above: Performed By: #### D DAVIDSON, MG, PHOS, CMP, LIPID, URIC #### [facility] [address] [place] [address] Dr. Sarmad Patino FK506 (TACROLIMUS) WHOLE BLO ODon 03-13-2022 Tacrolimus (FK506), Blood 5.0 ng/mL Normal 2.0-20.0 [facility] Comment on above: Result Comment: Trou gh (immediately following transplant) 15.0 . Trough (steady state, 2 weeks or more after transplant): 3.0 - 8.0 . Performed by LC-MS/MS technology. Performed By: #### D DAVIDSON, MG, PHOS, CMP, LIPID, URIC #### [facility] [address] [place] [address] Dr. Sarmad Patino GLYCOHEMOGLOBIN A1Con 2021 ADA RECOMMENDATION SEE BELOW Normal [facility] Comment on above: Result Comment: ADA RECOMMENDED LIMIT 4.0 - 6.0 ADA THERAPEUTIC TARGET < 7.0 ACTION SUGGESTED > 7.0 Performed By: #### D DAVIDSON, MG, PHOS, CMP, LIPID, URIC #### [facility] [address] [address] [address] Sarmad Patino Glucose [Mass/Vol] 111 mg/dL Normal [facility] Comment on above: Performed By: #### D DAVIDSON, MG, PHOS, CMP, LIPID, URIC #### [facility] [address] [address] [address] Sarmad Patino HbA1c (Bld) [Mass fraction] 5.5 % Normal 4.5-6.2 [facility] Comment on above: Performed By: #### D DAVIDSON, MG, PHOS, CMP, LIPID, URIC #### [facility] [address] [address] [address] Sarmad Patino LIVER PROFILEon 03-11-2022 Albumin [Mass/Vol] 3.7 g/dL Normal 3.4-5.0 [facility] Comment on above: Performed By: #### D DAVIDSON, MG, PHOS, CMP, LIPID, URIC #### [facility] [address] [address] [address] Sarmad Patino Albumin/Globulin [Mass ratio] 1.1 {ratio} Normal [facility] Comment on above: Performed By: #### D DAVIDSON, MG, PHOS, CMP, LIPID, URIC #### [facility] [address] [address] [address] Sarmad Patino ALP [Catalytic activity/Vol] 124 U/L Critically high 46-116 [facility] Comment on above: Performed By: #### D DAVIDSON, MG, PHOS, CMP, LIPID, URIC #### [facility] [address] [address] [address] Sarmad Patino ALT [Catalytic activity/Vol] 17 U/L Normal 14-59 [facility] Comment on above: Performed By: #### D DAVIDSON, MG, PHOS, CMP, LIPID, URIC #### [facility] [address] [place] [address] Dr. Sarmad Patino AST [Catalytic activity/Vol] 16 U/L Normal 15-37 [facility] Comment on above: Performed By: #### D DAVIDSON, MG, PHOS, CMP, LIPID, URIC #### [facility] [address] [place] [address] Dr. Sarmad Patino BILI, CONJUGATED 0.2 mg/dL Normal 0.0-0.2 [facility] Comment on above: Performed By: #### D DAVIDSON, MG, PHOS, CMP, LIPID, URIC #### [facility] [address] [place] [address] Dr. Sarmad Patino Bilirubin [Mass/Vol] 0.6 mg/dL Normal 0.2-1.0 [facility] Comment on above: Performed By: #### D DAVIDSON, MG, PHOS, CMP, LIPID, URIC #### [facility] [address] [place] [address] Dr. Sarmad Patino Globulin (S) [Mass/Vol] 3.4 g/dL Normal [facility] Comment on above: Performed By: #### D DAVIDSON, MG, PHOS, CMP, LIPID, URIC #### [facility] [address] [place] [address] Dr. Sarmad Patino Protein [Mass/Vol] 7.1 g/dL Normal 6.4-8.2 [facility] Comment on above: Performed By: #### D DAVIDSON, MG, PHOS, CMP, LIPID, URIC #### [facility] [address] [place] [address] Dr. Sarmad Patino MAGNESIUMon 03-11-2022 Magnesium [Mass/Vol] 1.6 mg/dL Critically low 1.8-2.4 [facility] Comment on above: Performed By: #### D DAVIDSON, MG, PHOS, CMP, LIPID, URIC #### [facility] [address] [place] [address] Dr. Sarmad Patino PHOSPHORUSon 03-11-2022 Phosphate [Mass/Vol] 3.5 mg/dL Normal 2.6-4.7 [facility] Comment on above: Performed By: #### D DAVIDSON, MG, PHOS, CMP, LIPID, URIC #### [facility] [address] [address] [address] Sarmad Patino URIC ACID SERUMon 03-11-2022 Urate [Mass/Vol] 5.3 mg/dL Normal 2.6-6.0 [facility] Comment on above: Performed By: #### D DAVIDSON, MG, PHOS, CMP, LIPID, URIC #### [facility] [address] [address] [address] Sarmad Patino MYCOPHENOLIC ACIDon 02-19-20 Mycophenolic Acid 1.5 ug/mL Normal 1.0-3.5 [facility] Comment on above: Performed By: #### D DAVIDSON, MG, PHOS, CMP, LIPID, URIC #### [facility] [address] [place] [address] Dr. Sarmad Patino Mycophenolic Acid Glucuronide 32 ug/mL Normal 15-125 [facility] Comment on above: Result Comment: [facility] 's Reference Range: 35-100 mcg/mL. Performed By: #### D DAVIDSON, MG, PHOS, CMP, LIPID, URIC #### [facility] [address] [place] [address] Dr. Sarmad Patino BK VIRUS PCR QUANTon 022 BKV DNA QUANT PCR PLASMA Negative Normal Negative [facility] Comment on above: Result Comment: No B K DNA detected. . The linear range of the assay is 22 - 100,000,000 IU/mL. Performed By: #### D DAVIDSON, MG, PHOS, CMP, LIPID, URIC #### [facility] [address] [place] [address] Dr. Sarmad Patino Log10 BKV DNA Plasma Normal [facility] Comment on above: Performed By: #### D DAVIDSON, MG, PHOS, CMP, LIPID, URIC #### [facility] [address] [address] [address] Sarmad Patino FK506 (TACROLIMUS) WHOLE BLO ODon 02-11-2022 Tacrolimus (FK506), Blood 4.4 ng/mL Normal 2.0-20.0 [facility] Comment on above: Result Comment: Trou gh (immediately following transplant) 15.0 . Trough (steady state, 2 weeks or more after transplant): 3.0 - 8.0 . Performed by LC-MS/MS technology. Performed By: #### U MAXI, LIPID, MG, CMP, DBIL, PHOS #### [facility] [address] [address] [address] Sarmad Patino BILIRUBIN CONJUGATED (DIRECT )on 02-08-2022 BILI, CONJUGATED 0.1 mg/dL Normal 0.0-0.2 [facility] Comment on above: Performed By: #### D DAVIDSON, MG, PHOS, CMP, LIPID, URIC #### [facility] [address] [address] [address] Sarmad Patino CBC AUTO DIFFon 02-08-2022 BASO # 0.0 103/ul Normal 0.0-0.1 [facility] Comment on above: Performed By: #### D DAVIDSON, MG, PHOS, CMP, LIPID, URIC #### [facility] [address] [address] [address] Sarmad Patino Basophils/100 WBC (Bld) 0.3 % Normal 0.2-2.0 [facility] Comment on above: Performed By: #### D DAVIDSON, MG, PHOS, CMP, LIPID, URIC #### [facility] [address] [address] [address] Sarmad Patino EO # 0.1 103/ul Normal 0.0-0.7 [facility] Comment on above: Performed By: #### D DAVIDSON, MG, PHOS, CMP, LIPID, URIC #### [facility] [address] [address] [address] Sarmad Patino Eosinophils/100 WBC (Bld) 1.0 % Normal 0.9-7.0 [facility] Comment on above: Performed By: #### D DAVIDSON, MG, PHOS, CMP, LIPID, URIC #### [facility] [address] [address] [address] Sarmad Patino Erythrocyte distribution width (RBC) [Ratio] 15.9 % Critically high 11.0-15.0 [facility] Comment on above: Performed By: #### D DAVIDSON, MG, PHOS, CMP, LIPID, URIC #### [facility] [address] [place] [address] Dr. Sarmad Patino Hematocrit (Bld) [Volume fraction] 42.2 % Normal 36.0-48.0 [facility] Comment on above: Performed By: #### D DAVIDSON, MG, PHOS, CMP, LIPID, URIC #### [facility] [address] [place] [address] Dr. Sarmad Patino Hemoglobin (Bld) [Mass/Vol] 13.8 g/dL Normal 12.0-16.0 [facility] Comment on above: Performed By: #### D DAVIDSON, MG, PHOS, CMP, LIPID, URIC #### [facility] [address] [place] [address] Dr. Sarmad Patino IG # 0.10 10e3/ul Critically high 0.00-0.03 [facility] Comment on above: Performed By: #### D DAVIDSON, MG, PHOS, CMP, LIPID, URIC #### [facility] [address] [place] [address] Dr. Sarmad Patino IG % 1.1 % Critically high 0.0-0.5 [facility] Comment on above: Performed By: #### D DAVIDSON, MG, PHOS, CMP, LIPID, URIC #### [facility] [address] [place] [address] Dr. Sarmad Patino LYMPH # 1.2 103/ul Normal 1.2-3.8 [facility] Comment on above: Performed By: #### D DAVIDSON, MG, PHOS, CMP, LIPID, URIC #### [facility] [address] [place] [address] Dr. Sarmad Patino Lymphocytes/100 WBC (Bld) 12.6 % Critically low 20.5-60.0 [facility] Comment on above: Performed By: #### D DAVIDSON, MG, PHOS, CMP, LIPID, URIC #### [facility] [address] [place] [address] Dr. Sarmad Patino MANUAL DIFF REQ NO Normal [facility] Comment on above: Performed By: #### D DAVIDSON, MG, PHOS, CMP, LIPID, URIC #### [facility] [address] [place] [address] Dr. Sarmad Patino MCH (RBC) [Entitic mass] 28.3 pg Normal 26.7-34.0 [facility] Comment on above: Performed By: #### D DAVIDSON, MG, PHOS, CMP, LIPID, URIC #### [facility] [address] [place] [address] Dr. Sarmad Patino MCHC (RBC) [Mass/Vol] 32.7 g/dL Normal 29.9-35.2 [facility] Comment on above: Performed By: #### D DAVIDSON, MG, PHOS, CMP, LIPID, URIC #### [facility] [address] [place] [address] Dr. Sarmad Patino MCV (RBC) [Entitic vol] 86.7 fL Normal 81.0-99.0 [facility] Comment on above: Performed By: #### D DAVIDSON, MG, PHOS, CMP, LIPID, URIC #### [facility] [address] [place] [address] Dr. Sarmad Patino MONO # 1.0 103/ul Critically high 0.3-0.8 [facility] Comment on above: Performed By: #### D DAVIDSON, MG, PHOS, CMP, LIPID, URIC #### [facility] [address] [place] [address] Dr. Sarmad Patino Monocytes/100 WBC (Bld) 10.7 % Normal 1.7-12.0 [facility] Comment on above: Performed By: #### D DAVIDSON, MG, PHOS, CMP, LIPID, URIC #### [facility] [address] [place] [address] Dr. Sarmad Patino NEUT # 6.9 103/ul Critically high 1.4-6.5 [facility] Comment on above: Performed By: #### D DAVIDSON, MG, PHOS, CMP, LIPID, URIC #### [facility] [address] [address] [address] Sarmad Patino Neutrophils/100 WBC (Bld) 74.3 % Normal 43.0-75.0 [facility] Comment on above: Performed By: #### D DAVIDSON, MG, PHOS, CMP, LIPID, URIC #### [facility] [address] [address] [address] Sarmad Patino Platelet mean volume (Bld) [Entitic vol] 11.1 fL Normal 9.5-13.5 [facility] Comment on above: Performed By: #### D DAVIDSON, MG, PHOS, CMP, LIPID, URIC #### [facility] [address] [address] [address] Sarmad Patino PLT 307 103/ul Normal 150-450 [facility] Comment on above: Performed By: #### D DAVIDSON, MG, PHOS, CMP, LIPID, URIC #### [facility] [address] [place] [address] Dr. Sarmad Patino RBC 4.87 106/ul Normal 4.20-5.40 [facility] Comment on above: Performed By: #### D DAVIDSON, MG, PHOS, CMP, LIPID, URIC #### [facility] [address] [address] [address] Sarmad Patino WBC 9.3 103/ul Normal 4.0-11.0 [facility] Comment on above: Performed By: #### D DAVIDSON, MG, PHOS, CMP, LIPID, URIC #### [facility] [address] [place] [address] Dr. Sarmad Patino GLYCOHEMOGLOBIN A1Con 2021 ADA RECOMMENDATION SEE BELOW Normal [facility] Comment on above: Result Comment: ADA RECOMMENDED LIMIT 4.0 - 6.0 ADA THERAPEUTIC TARGET < 7.0 ACTION SUGGESTED > 7.0 Performed By: #### D DAVIDSON, MG, PHOS, CMP, LIPID, URIC #### [facility] [address] [place] [address] Dr. Sarmad Patino Glucose [Mass/Vol] 134 mg/dL Normal [facility] Comment on above: Performed By: #### D DAVIDSON, MG, PHOS, CMP, LIPID, URIC #### [facility] [address] [address] [address] Sarmad Patino HbA1c (Bld) [Mass fraction] 6.3 % Critically high 4.5-6.2 [facility] Comment on above: Performed By: #### D DAVIDSON, MG, PHOS, CMP, LIPID, URIC #### [facility] [address] [address] [address] Sarmad Patino LIPID PROFILEon 02-08-2022 CHOL-HDL RATIO NORM SEE BELOW Normal [facility] Comment on above: Result Comment: 3.3 - 4.4 LOW RISK 4.4 - 7.1 AVERAGE RISK 7.1 - 11.0 MODERATE RISK >11.0 HIGH RISK Performed By: #### D DAVIDSON, MG, PHOS, CMP, LIPID, URIC #### [facility] [address] [address] [address] Sarmad Patino Cholesterol [Mass/Vol] 180 mg/dL Normal <=200 [facility] Comment on above: Performed By: #### D DAVIDSON, MG, PHOS, CMP, LIPID, URIC #### [facility] [address] [address] [address] Sarmad Patino Cholesterol in HDL [Mass/Vol] 58 mg/dL Normal 40-60 [facility] Comment on above: Performed By: #### D DAVIDSON, MG, PHOS, CMP, LIPID, URIC #### [facility] [address] [address] [address] Sarmad Patino Cholesterol in LDL [Mass/Vol] 86.6 mg/dL Normal [facility] Comment on above: Performed By: #### D DAVIDSON, MG, PHOS, CMP, LIPID, URIC #### [facility] [address] [address] [address] Sarmad Patino Cholesterol.total/C holesterol in HDL [Mass ratio] 3.1 {ratio} Normal [facility] Comment on above: Performed By: #### D DAVIDSON, MG, PHOS, CMP, LIPID, URIC #### [facility] [address] [address] [address] Sarmad Patino HDL NORMAL > or = 60 mg/dl - LO W CARDIOVASCULAR RISK <40 mg/dl - HIGH CARDIOVASCULAR RISK Normal [facility] Comment on above: Performed By: #### D DAVIDSON, MG, PHOS, CMP, LIPID, URIC #### [facility] [address] [place] [address] Dr. Sarmad Patino LDL CALC NORMAL SEE BELOW Normal [facility] Comment on above: Result Comment: <100 mg/dl OPTIMAL 100 - 129 mg/dl NEAR OR ABOVE OPTIMAL 130 - 159 mg/dl BORDERLINE HIGH 160 - 189 mg/dl HIGH >190 mg/dl VERY HIGH Performed By: #### D DAVIDSON, MG, PHOS, CMP, LIPID, URIC #### [facility] [address] [address] [address] Sarmad Patino Triglyceride [Mass/Vol] 177 mg/dL Critically high <=150 [facility] Comment on above: Performed By: #### D DAVIDSON, MG, PHOS, CMP, LIPID, URIC #### [facility] Laboratory [address] [place] [address] Dr. Sarmad Patino VLDL CALC 35.4 mg/dL Normal [facility] Comment on above: Performed By: #### D DAVIDSON, MG, PHOS, CMP, LIPID, URIC #### [facility] [address] [place] [address] Dr. Sarmad Patino MAGNESIUMon 02-08-2022 Magnesium [Mass/Vol] 1.8 mg/dL Normal 1.8-2.4 [facility] Comment on above: Performed By: #### D DAVIDSON, MG, PHOS, CMP, LIPID, URIC #### [facility] [address] [place] [address] Dr. Sarmad Patino PHOSPHORUSon 02-08-2022 Phosphate [Mass/Vol] 3.3 mg/dL Normal 2.6-4.7 [facility] Comment on above: Performed By: #### D DAVIDSON, MG, PHOS, CMP, LIPID, URIC #### [facility] [address] [place] [address] Dr. Sarmad Patino PROF 14(COMP METB)on 022 Albumin [Mass/Vol] 3.8 g/dL Normal 3.4-5.0 [facility] Comment on above: Performed By: #### D DAVIDSON, MG, PHOS, CMP, LIPID, URIC #### [facility] [address] [place] [address] Dr. Sarmad Patino Albumin/Globulin [Mass ratio] 1.3 {ratio} Normal [facility] Comment on above: Performed By: #### D DAVIDSON, MG, PHOS, CMP, LIPID, URIC #### [facility] [address] [address] [address] Sarmad Patino ALP [Catalytic activity/Vol] 144 U/L Critically high 46-116 [facility] Comment on above: Performed By: #### D DAVIDSON, MG, PHOS, CMP, LIPID, URIC #### [facility] [address] [place] [address] Dr. Sarmad Patino ALT [Catalytic activity/Vol] 24 U/L Normal 14-59 [facility] Comment on above: Performed By: #### D DAVIDSON, MG, PHOS, CMP, LIPID, URIC #### [facility] [address] [place] [address] Dr. Sarmad Patino Anion gap [Moles/Vol] 13.7 mmol/L Normal [facility] Comment on above: Performed By: #### D DAVIDSON, MG, PHOS, CMP, LIPID, URIC #### [facility] [address] [place] [address] Dr. Sarmad Patino AST [Catalytic activity/Vol] 19 U/L Normal 15-37 [facility] Comment on above: Performed By: #### D DAVIDSON, MG, PHOS, CMP, LIPID, URIC #### [facility] [address] [place] [address] Dr. Sarmad Patino Bilirubin [Mass/Vol] 0.5 mg/dL Normal 0.2-1.0 [facility] Comment on above: Performed By: #### D DAVIDSON, MG, PHOS, CMP, LIPID, URIC #### [facility] [address] [place] [address] Dr. Sarmad Patino Calcium [Mass/Vol] 9.6 mg/dL Normal 8.5-10.1 [facility] Comment on above: Performed By: #### D DAVIDSON, MG, PHOS, CMP, LIPID, URIC #### [facility] [address] [address] [address] Sarmad Patino Chloride [Moles/Vol] 103 mmol/L Normal 98-107 [facility] Comment on above: Performed By: #### D DAVIDSON, MG, PHOS, CMP, LIPID, URIC #### [facility] [address] [address] [address] Sarmad Patino CO2 [Moles/Vol] 26.6 mmol/L Normal 21.0-32.0 The [facility] Comment on above: Performed By: #### D DAVIDSON, MG, PHOS, CMP, LIPID, URIC #### [facility] [address] [place] [address] Dr. Sarmad Patino Creatinine [Mass/Vol] 0.75 mg/dL Normal 0.55-1.02 [facility] Comment on above: Performed By: #### D DAVIDSON, MG, PHOS, CMP, LIPID, URIC #### [facility] [address] [place] [address] Dr. Sarmad Patino EGFR-AF TANZANIAN >60 Normal >=60 The [facility] Comment on above: Performed By: #### D DAVIDSON, MG, PHOS, CMP, LIPID, URIC #### [facility] [address] [place] [address] Dr. Sarmad Patino EGFR-NON AF TANZANIAN >60 Normal >=60 [facility] Comment on above: Performed By: #### D DAVIDSON, MG, PHOS, CMP, LIPID, URIC #### [facility] [address] [address] [address] Sarmad Patino Globulin (S) [Mass/Vol] 3.0 g/dL Normal [facility] Comment on above: Performed By: #### D DAVIDSON, MG, PHOS, CMP, LIPID, URIC #### [facility] [address] [address] [address] Sarmad Patino Glucose [Mass/Vol] 99 mg/dL Normal 74-106 [facility] Comment on above: Performed By: #### D DAVIDSON, MG, PHOS, CMP, LIPID, URIC #### [facility] [address] [place] [address] Dr. Sarmad Patino Potassium [Moles/Vol] 4.3 mmol/L Normal 3.5-5.1 [facility] Comment on above: Performed By: #### D DAVIDSON, MG, PHOS, CMP, LIPID, URIC #### [facility] [address] [place] [address] Dr. Sarmad Patino Protein [Mass/Vol] 6.8 g/dL Normal 6.4-8.2 [facility] Comment on above: Performed By: #### D DAVIDSON, MG, PHOS, CMP, LIPID, URIC #### [facility] [address] [place] [address] Dr. Sarmad Patino Sodium [Moles/Vol] 139 mmol/L Normal 136-145 [facility] Comment on above: Performed By: #### D DAVIDSON, MG, PHOS, CMP, LIPID, URIC #### [facility] [address] [place] [address] Dr. Sarmad Patino Urea nitrogen [Mass/Vol] 16.0 mg/dL Normal 7.0-18.0 [facility] Comment on above: Performed By: #### D DAVIDSON, MG, PHOS, CMP, LIPID, URIC #### [facility] [address] [place] [address] Dr. Sarmad Patino Urea nitrogen/Creatinine [Mass ratio] 21.3 mg/mg Normal [facility] Comment on above: Performed By: #### D DAVIDSON, MG, PHOS, CMP, LIPID, URIC #### [facility] [address] [place] [address] Dr. Sarmad Patino URIC ACID SERUMon 02-08-2022 Urate [Mass/Vol] 5.4 mg/dL Normal 2.6-6.0 [facility] Comment on above: Performed By: #### D DAVIDSON, MG, PHOS, CMP, LIPID, URIC #### [facility] [address] [place] [address] Dr. Sarmad Patino BK VIRUS PCR QUANTon 022 BKV DNA QUANT PCR PLASMA 27 IU/mL Normal Negative [facility] Comment on above: Result Comment: The linear range of the assay is 22 - 100,000,000 IU/mL. Performed By: #### D DAVIDSON, MG, PHOS, CMP, LIPID, URIC #### [facility] [address] [address] [address] Sarmad Patino Log10 BKV DNA Plasma 1.431 log10 IU/mL Normal [facility] Comment on above: Performed By: #### D DAVIDSON, MG, PHOS, CMP, LIPID, URIC #### [facility] [address] [address] [address] aSrmad Patino FK506 (TACROLIMUS) WHOLE BLO ODon 01-30-2022 Tacrolimus (FK506), Blood 6.5 ng/mL Normal 2.0-20.0 [facility] Comment on above: Result Comment: Trou gh (immediately following transplant) 15.0 . Trough (steady state, 2 weeks or more after transplant): 3.0 - 8.0 . Performed by LC-MS/MS technology. Performed By: #### D DAVIDSON, MG, PHOS, CMP, LIPID, URIC #### [facility] [address] [address] [address] Sarmad Patino RAPAMUNE(SIROLIMUS)on 2021 Rapamune(Sirolimus) , whole blood 9.9 ng/mL Normal 3.0-20.0 [facility] Comment on above: Result Comment: Perf ormed by LC/MS-MS technology . This test was developed and its performance characteristics determined by [employer]. It has not been cleared or approved by the Food and Drug Administration. Performed By: #### D DAVIDSON, MG, PHOS, CMP, LIPID, URIC #### [facility] [address] [address] [address] Sarmad Patino BILIRUBIN CONJUGATED (DIRECT )on 01-28-2022 BILI, CONJUGATED 0.1 mg/dL Normal 0.0-0.2 [facility] Comment on above: Performed By: #### D DAVIDSON, MG, PHOS, CMP, LIPID, URIC #### [facility] [address] [address] [address] Sarmad Patino CBC AUTO DIFFon 01-28-2022 BASO # 0.0 103/ul Normal 0.0-0.1 [facility] Comment on above: Performed By: #### D DAVIDSON, MG, PHOS, CMP, LIPID, URIC #### [facility] [address] [place] [address] Dr. Sarmad Patino Basophils/100 WBC (Bld) 0.3 % Normal 0.2-2.0 [facility] Comment on above: Performed By: #### D DAVIDSON, MG, PHOS, CMP, LIPID, URIC #### [facility] [address] [place] [address] Dr. Sarmad Patino EO # 0.2 103/ul Normal 0.0-0.7 [facility] Comment on above: Performed By: #### D DAVIDSON, MG, PHOS, CMP, LIPID, URIC #### [facility] [address] [place] [address] Dr. Sarmad Patino Eosinophils/100 WBC (Bld) 3.1 % Normal 0.9-7.0 [facility] Comment on above: Performed By: #### D DAVIDSON, MG, PHOS, CMP, LIPID, URIC #### [facility] [address] [place] [address] Dr. Sarmad Patino Erythrocyte distribution width (RBC) [Ratio] 15.4 % Critically high 11.0-15.0 [facility] Comment on above: Performed By: #### D DAVIDSON, MG, PHOS, CMP, LIPID, URIC #### [facility] [address] [place] [address] Dr. Sarmda Patino Hematocrit (Bld) [Volume fraction] 42.6 % Normal 36.0-48.0 [facility] Comment on above: Performed By: #### D DAVIDSON, MG, PHOS, CMP, LIPID, URIC #### [facility] [address] [place] [address] Dr. Sarmad Patino Hemoglobin (Bld) [Mass/Vol] 14.0 g/dL Normal 12.0-16.0 [facility] Comment on above: Performed By: #### D DAVIDSON, MG, PHOS, CMP, LIPID, URIC #### [facility] [address] [place] [address] Dr. Sarmad Patino IG # 0.05 10e3/ul Critically high 0.00-0.03 [facility] Comment on above: Performed By: #### D DAVIDSON, MG, PHOS, CMP, LIPID, URIC #### [facility] [address] [place] [address] Dr. Sarmad Patino IG % 0.7 % Critically high 0.0-0.5 [facility] Comment on above: Performed By: #### D DAVIDSON, MG, PHOS, CMP, LIPID, URIC #### [facility] [address] [place] [address] Dr. Sarmad Patino LYMPH # 1.1 103/ul Critically low 1.2-3.8 The [facility] Comment on above: Performed By: #### D DAVIDSON, MG, PHOS, CMP, LIPID, URIC #### [facility] [address] [place] [address] Dr. Sarmad Patino Lymphocytes/100 WBC (Bld) 15.8 % Critically low 20.5-60.0 [facility] Comment on above: Performed By: #### D DAVIDSON, MG, PHOS, CMP, LIPID, URIC #### [facility] [address] [place] [address] Dr. Sarmad Patino MANUAL DIFF REQ NO Normal [facility] Comment on above: Performed By: #### D DAVIDSON, MG, PHOS, CMP, LIPID, URIC #### [facility] [address] [place] [address] Dr. Sarmad Patino MCH (RBC) [Entitic mass] 28.3 pg Normal 26.7-34.0 [facility] Comment on above: Performed By: #### D DAVIDSON, MG, PHOS, CMP, LIPID, URIC #### [facility] [address] [place] [address] Dr. Sarmad Patino MCHC (RBC) [Mass/Vol] 32.9 g/dL Normal 29.9-35.2 [facility] Comment on above: Performed By: #### D DAVIDSON, MG, PHOS, CMP, LIPID, URIC #### [facility] [address] [place] [address] Dr. Sarmad Patino MCV (RBC) [Entitic vol] 86.2 fL Normal 81.0-99.0 [facility] Comment on above: Performed By: #### D DAVIDSON, MG, PHOS, CMP, LIPID, URIC #### [facility] [address] [place] [address] Dr. Sarmad Patino MONO # 0.8 103/ul Normal 0.3-0.8 [facility] Comment on above: Performed By: #### D DAVIDSON, MG, PHOS, CMP, LIPID, URIC #### [facility] [address] [place] [address] Dr. Sarmad Patino Monocytes/100 WBC (Bld) 11.0 % Normal 1.7-12.0 [facility] Comment on above: Performed By: #### D DAVIDSON, MG, PHOS, CMP, LIPID, URIC #### [facility] [address] [place] [address] Dr. Sarmad Patino NEUT # 4.8 103/ul Normal 1.4-6.5 [facility] Comment on above: Performed By: #### D DAVIDSON, MG, PHOS, CMP, LIPID, URIC #### [facility] [address] [place] [address] Dr. Sarmad Patino Neutrophils/100 WBC (Bld) 69.1 % Normal 43.0-75.0 [facility] Comment on above: Performed By: #### D DAVIDSON, MG, PHOS, CMP, LIPID, URIC #### [facility] [address] [place] [address] Dr. Sarmad Patino Platelet mean volume (Bld) [Entitic vol] 10.8 fL Normal 9.5-13.5 [facility] Comment on above: Performed By: #### D DAVIDSON, MG, PHOS, CMP, LIPID, URIC #### [facility] [address] [place] [address] Dr. Sarmad Patino PLT 208 103/ul Normal 150-450 [facility] Comment on above: Performed By: #### D DAVIDSON, MG, PHOS, CMP, LIPID, URIC #### [facility] [address] [address] [address] Sarmad Patino RBC 4.94 106/ul Normal 4.20-5.40 [facility] Comment on above: Performed By: #### D DAVIDSON, MG, PHOS, CMP, LIPID, URIC #### [facility] [address] [address] [address] Sarmad Patino WBC 7.0 103/ul Normal 4.0-11.0 [facility] Comment on above: Performed By: #### D DAVIDSON, MG, PHOS, CMP, LIPID, URIC #### [facility] [address] [address] [address] Sarmad Patino GLYCOHEMOGLOBIN A1Con 2021 ADA RECOMMENDATION SEE BELOW Normal [facility] Comment on above: Result Comment: ADA RECOMMENDED LIMIT 4.0 - 6.0 ADA THERAPEUTIC TARGET < 7.0 ACTION SUGGESTED > 7.0 Performed By: #### D DAVIDSON, MG, PHOS, CMP, LIPID, URIC #### [facility] [address] [address] [address] Sarmad Patino Glucose [Mass/Vol] 137 mg/dL Normal [facility] Comment on above: Performed By: #### D DAVIDSON, MG, PHOS, CMP, LIPID, URIC #### [facility] [address] [address] [address] Sarmad Patino HbA1c (Bld) [Mass fraction] 6.4 % Critically high 4.5-6.2 [facility] Comment on above: Performed By: #### D DAVIDSON, MG, PHOS, CMP, LIPID, URIC #### [facility] [address] [address] [address] Sarmad Patino LIPID PROFILEon 01-28-2022 CHOL-HDL RATIO NORM SEE BELOW Normal [facility] Comment on above: Result Comment: 3.3 - 4.4 LOW RISK 4.4 - 7.1 AVERAGE RISK 7.1 - 11.0 MODERATE RISK >11.0 HIGH RISK Performed By: #### D DAVIDSON, MG, PHOS, CMP, LIPID, URIC #### [facility] [address] [address] [address] Sarmad Patino Cholesterol [Mass/Vol] 209 mg/dL Critically high <=200 [facility] Comment on above: Performed By: #### D DAVIDSON, MG, PHOS, CMP, LIPID, URIC #### [facility] [address] [address] [address] Sarmad Patino Cholesterol in HDL [Mass/Vol] 59 mg/dL Normal 40-60 [facility] Comment on above: Performed By: #### D DAVIDSON, MG, PHOS, CMP, LIPID, URIC #### [facility] [address] [address] [address] Sarmad Patino Cholesterol in LDL [Mass/Vol] 100.4 mg/dL Normal [facility] Comment on above: Performed By: #### D DAVIDSON, MG, PHOS, CMP, LIPID, URIC #### [facility] [address] [address] [address] Sarmad Patino Cholesterol.total/C holesterol in HDL [Mass ratio] 3.5 {ratio} Normal [facility] Comment on above: Performed By: #### D DAVIDSON, MG, PHOS, CMP, LIPID, URIC #### [facility] [address] [address] [address] Sarmad Patino HDL NORMAL > or = 60 mg/dl - LO W CARDIOVASCULAR RISK <40 mg/dl - HIGH CARDIOVASCULAR RISK Normal [facility] Comment on above: Performed By: #### D DAVIDSON, MG, PHOS, CMP, LIPID, URIC #### [facility] [address] [address] [address] Sarmad Patino LDL CALC NORMAL SEE BELOW Normal [facility] Comment on above: Result Comment: <100 mg/dl OPTIMAL 100 - 129 mg/dl NEAR OR ABOVE OPTIMAL 130 - 159 mg/dl BORDERLINE HIGH 160 - 189 mg/dl HIGH >190 mg/dl VERY HIGH Performed By: #### D DAVIDSON, MG, PHOS, CMP, LIPID, URIC #### [facility] [address] [address] [address] Sarmad Patino Triglyceride [Mass/Vol] 248 mg/dL Critically high <=150 [facility] Comment on above: Performed By: #### D DAVIDSON, MG, PHOS, CMP, LIPID, URIC #### [facility] [address] [address] [address] Sarmad Patino VLDL CALC 49.6 mg/dL Normal [facility] Comment on above: Performed By: #### D DAVIDSON, MG, PHOS, CMP, LIPID, URIC #### [facility] [address] [address] [address] Sarmad Patino MAGNESIUMon 01-28-2022 Magnesium [Mass/Vol] 1.6 mg/dL Critically low 1.8-2.4 [facility] Comment on above: Performed By: #### D DAVIDSON, MG, PHOS, CMP, LIPID, URIC #### [facility] [address] [place] [address] Dr. Sarmad Patino PHOSPHORUSon 01-28-2022 Phosphate [Mass/Vol] 2.7 mg/dL Normal 2.6-4.7 [facility] Comment on above: Performed By: #### D DAVIDSON, MG, PHOS, CMP, LIPID, URIC #### [facility] [address] [place] [address] Dr. Sarmad Patino PROF 14(COMP METB)on 022 Albumin [Mass/Vol] 3.3 g/dL Critically low 3.4-5.0 Th [facility] Comment on above: Performed By: #### D DAVIDSON, MG, PHOS, CMP, LIPID, URIC #### [facility] [address] [place] [address] Dr. Sarmad Patino Albumin/Globulin [Mass ratio] 0.9 {ratio} Normal [facility] Comment on above: Performed By: #### D DAVIDSON, MG, PHOS, CMP, LIPID, URIC #### [facility] [address] [place] [address] Dr. Sarmad Patino ALP [Catalytic activity/Vol] 124 U/L Critically high 46-116 [facility] Comment on above: Performed By: #### D DAVIDSON, MG, PHOS, CMP, LIPID, URIC #### [facility] [address] [address] [address] Sarmad Patino ALT [Catalytic activity/Vol] 28 U/L Normal 14-59 [facility] Comment on above: Performed By: #### D DAVIDSON, MG, PHOS, CMP, LIPID, URIC #### [facility] [address] [place] [address] Dr. Sarmad Patino Anion gap [Moles/Vol] 12.0 mmol/L Normal [facility] Comment on above: Performed By: #### D DAVIDSON, MG, PHOS, CMP, LIPID, URIC #### [facility] [address] [address] [address] Sarmad Patino AST [Catalytic activity/Vol] 20 U/L Normal 15-37 [facility] Comment on above: Performed By: #### D DAVIDSON, MG, PHOS, CMP, LIPID, URIC #### [facility] [address] [place] [address] Dr. Sarmad Patino Bilirubin [Mass/Vol] 0.5 mg/dL Normal 0.2-1.0 [facility] Comment on above: Performed By: #### D DAVIDSON, MG, PHOS, CMP, LIPID, URIC #### [facility] [address] [address] [address] Sarmad Patino Calcium [Mass/Vol] 9.1 mg/dL Normal 8.5-10.1 [facility] Comment on above: Performed By: #### D DAVIDSON, MG, PHOS, CMP, LIPID, URIC #### [facility] [address] [place] [address] Dr. Sarmad Patino Chloride [Moles/Vol] 104 mmol/L Normal 98-107 [facility] Comment on above: Performed By: #### D DAVIDSON, MG, PHOS, CMP, LIPID, URIC #### [facility] [address] [place] [address] Dr. Sarmad Patino CO2 [Moles/Vol] 25.7 mmol/L Normal 21.0-32.0 [facility] Comment on above: Performed By: #### D DAVIDSON, MG, PHOS, CMP, LIPID, URIC #### [facility] [address] [address] [address] Sarmad Patino Creatinine [Mass/Vol] 0.77 mg/dL Normal 0.55-1.02 [facility] Comment on above: Performed By: #### D DAVIDSON, MG, PHOS, CMP, LIPID, URIC #### [facility] [address] [address] [address] Sarmad Patino EGFR-AF TANZANIAN >60 Normal >=60 [facility] Comment on above: Performed By: #### D DAVIDSON, MG, PHOS, CMP, LIPID, URIC #### [facility] [address] [address] [address] Sarmad Patino EGFR-NON AF TANZANIAN >60 Normal >=60 [facility] Comment on above: Performed By: #### D DAVIDSON, MG, PHOS, CMP, LIPID, URIC #### [facility] [address] [place] [address] Dr. Sarmad Patino Globulin (S) [Mass/Vol] 3.7 g/dL Normal [facility] Comment on above: Performed By: #### D DAVIDSON, MG, PHOS, CMP, LIPID, URIC #### [facility] [address] [address] [address] Sarmad Patino Glucose [Mass/Vol] 108 mg/dL Critically high 74-106 T [facility] Comment on above: Performed By: #### D DAVIDSON, MG, PHOS, CMP, LIPID, URIC #### [facility] [address] [place] [address] Dr. Sarmad Patino Potassium [Moles/Vol] 3.7 mmol/L Normal 3.5-5.1 [facility] Comment on above: Performed By: #### D DAVIDSON, MG, PHOS, CMP, LIPID, URIC #### [facility] [address] [address] [address] Sarmad Patino Protein [Mass/Vol] 7.0 g/dL Normal 6.4-8.2 [facility] Comment on above: Performed By: #### D DAVIDSON, MG, PHOS, CMP, LIPID, URIC #### [facility] [address] [place] [address] Dr. Sarmad Patino Sodium [Moles/Vol] 138 mmol/L Normal 136-145 [facility] Comment on above: Performed By: #### D DAVIDSON, MG, PHOS, CMP, LIPID, URIC #### [facility] [address] [address] [address] Sarmad Patino Urea nitrogen [Mass/Vol] 15.0 mg/dL Normal 7.0-18.0 [facility] Comment on above: Performed By: #### D DAVIDSON, MG, PHOS, CMP, LIPID, URIC #### [facility] [address] [address] [address] Sarmad Patino Urea nitrogen/Creatinine [Mass ratio] 19.5 mg/mg Normal [facility] Comment on above: Performed By: #### D DAVIDSON, MG, PHOS, CMP, LIPID, URIC #### [facility] [address] [address] [address] Sarmad Patino URIC ACID SERUMon 01-28-2022 Urate [Mass/Vol] 4.3 mg/dL Normal 2.6-6.0 [facility] Comment on above: Performed By: #### D DAVIDSON, MG, PHOS, CMP, LIPID, URIC #### [facility] [address] [address] [address] Sarmad Patino [employer] 01-12-2022 S. pyogenes Org specific cx Ql (Throat) Negative [employer] Other [employer] [facility] [employer] Other XR CHEST 1 Von 01-07-2022 XR [...] basilar infiltrates; improved. Electronically authenticated by: BRITTON ZIAVANI Date: 2022-01-07 15:00 Normal [facility] CBC W MANUAL DIFFon 01-04-20 22 ATYPICAL LYMPH # 1.40 103/ul Normal [facility] Comment on above: Performed By: #### D DAVIDSON, MG, PHOS, CMP, LIPID, URIC #### [facility] [address] [address] [address] Sarmad Patino ATYPICAL LYMPH % 10 % Normal The [facility] Comment on above: Performed By: #### D DAVIDSON, MG, PHOS, CMP, LIPID, URIC #### [facility] [address] [place] [address] Dr. Sarmad Patino BAND # 0.6 103/ul Critically high 0.0-0.3 [facility] Comment on above: Performed By: #### D DAVIDSON, MG, PHOS, CMP, LIPID, URIC #### [facility] [address] [place] [address] Dr. Sarmad Patino BAND % 4 % Normal 0-5 [facility] Comment on above: Performed By: #### D DAVIDSON, MG, PHOS, CMP, LIPID, URIC #### [facility] [address] [place] [address] Dr. Sarmad Patino BASOM # 0.00 103/ul Normal 0.00-0.10 [facility] Comment on above: Performed By: #### D DAVIDSON, MG, PHOS, CMP, LIPID, URIC #### [facility] [address] [address] [address] Sarmad Patino BASOM % 0.0 % Critically low 0.2-2.0 [facility] Comment on above: Performed By: #### D DAVIDSON, MG, PHOS, CMP, LIPID, URIC #### [facility] [address] [place] [address] Dr. Sarmad Patino BLAST # Normal [facility] Comment on above: Performed By: #### D DAVIDSON, MG, PHOS, CMP, LIPID, URIC #### [facility] [address] [place] [address] Dr. Sarmad Patino BLAST % Normal [facility] Comment on above: Performed By: #### D DAVIDSON, MG, PHOS, CMP, LIPID, URIC #### [facility] [address] [address] [address] Sarmad Patino CORRECTED WBC Normal 4.0-11.0 [facility] Comment on above: Performed By: #### D DAVIDSON, MG, PHOS, CMP, LIPID, URIC #### [facility] [address] [address] [address] Sarmad Patino EOS # 0.14 103/ul Normal 0.00-0.70 [facility] Comment on above: Performed By: #### D DAVIDSON, MG, PHOS, CMP, LIPID, URIC #### [facility] [address] [place] [address] Dr. Sarmad Patino EOS% 1.0 % Normal 0.9-7.0 [facility] Comment on above: Performed By: #### D DAVIDSON, MG, PHOS, CMP, LIPID, URIC #### [facility] [address] [place] [address] Dr. Sarmad Patino HCT 42.8 % Normal 36.0-48.0 [facility] Comment on above: Performed By: #### D DAVIDSON, MG, PHOS, CMP, LIPID, URIC #### [facility] [address] [place] [address] Dr. Sarmad Patino HGB 14.2 g/dl Normal 12.0-16.0 [facility] Comment on above: Performed By: #### D DAVIDSON, MG, PHOS, CMP, LIPID, URIC #### [facility] [address] [place] [address] Dr. Sarmad Patino LYMPHM # 0.00 103/ul Critically low 1.20-3.80 [facility] Comment on above: Performed By: #### D DAVIDSON, MG, PHOS, CMP, LIPID, URIC #### [facility] [address] [place] [address] Dr. Sarmad Patino LYMPHM% 0.0 % Critically low 20.5-60.0 [facility] Comment on above: Performed By: #### D DAVIDSON, MG, PHOS, CMP, LIPID, URIC #### [facility] [address] [address] [address] Sarmad Patino MCH 28.8 pg Normal 26.7-34.0 [facility] Comment on above: Performed By: #### D DAVIDSON, MG, PHOS, CMP, LIPID, URIC #### [facility] [address] [address] [address] Sarmad Patino MCHC 33.2 g/dl Normal 29.9-35.2 [facility] Comment on above: Performed By: #### D DAVIDSON, MG, PHOS, CMP, LIPID, URIC #### [facility] [address] [place] [address] Dr. Sarmad Patino MCV 86.8 fL Normal 81.0-99.0 [facility] Comment on above: Performed By: #### D DAVIDSON, MG, PHOS, CMP, LIPID, URIC #### [facility] [address] [place] [address] Dr. Sarmad Patino METAMYELOCYTE # Normal [facility] Comment on above: Performed By: #### D DAVIDSON, MG, PHOS, CMP, LIPID, URIC #### [facility] [address] [place] [address] Dr. Sarmad Patino METAMYELOCYTE % Normal [facility] Comment on above: Performed By: #### D DAVIDSON, MG, PHOS, CMP, LIPID, URIC #### [facility] [address] [address] [address] Sarmad Patino MONOM# 0.84 103/ul Critically high 0.30-0.80 [facility] Comment on above: Performed By: #### D DAVIDSON, MG, PHOS, CMP, LIPID, URIC #### [facility] [address] [place] [address] Dr. Sarmad Patino MONOM% 6.0 % Normal 1.7-12.0 [facility] Comment on above: Performed By: #### D DAVIDSON, MG, PHOS, CMP, LIPID, URIC #### [facility] [address] [address] [address] Sarmad Patino MPV 11.5 fL Normal 9.5-13.5 [facility] Comment on above: Performed By: #### D DAVIDSON, MG, PHOS, CMP, LIPID, URIC #### [facility] [address] [address] [address] Sarmad Patino MYELOCYTE # 0.3 103/ul Normal [facility] Comment on above: Performed By: #### D DAVIDSON, MG, PHOS, CMP, LIPID, URIC #### [facility] [address] [address] [address] Sarmad Patino MYELOCYTE % 2 % Normal [facility] Comment on above: Performed By: #### D DAVIDSON, MG, PHOS, CMP, LIPID, URIC #### [facility] [address] [place] [address] Dr. Sarmad Patino NRBC Normal [facility] Comment on above: Performed By: #### D DAVIDSON, MG, PHOS, CMP, LIPID, URIC #### [facility] [address] [address] [address] Sarmad Patino PLT 180 103/ul Normal 150-450 [facility] Comment on above: Performed By: #### D DAVIDSON, MG, PHOS, CMP, LIPID, URIC #### [facility] [address] [address] [address] Sarmad Patino RBC 4.93 106/ul Normal 4.20-5.40 [facility] Comment on above: Performed By: #### D DAVIDSON, MG, PHOS, CMP, LIPID, URIC #### [facility] [address] [address] [address] Sarmad Patino RDW 13.9 % Normal 11.0-15.0 [facility] Comment on above: Performed By: #### D DAVIDSON, MG, PHOS, CMP, LIPID, URIC #### [facility] [address] [address] [address] Sarmad Patino SEG # 10.78 103/ul Critically high 1.40-6.50 [facility] Comment on above: Performed By: #### D DAVIDSON, MG, PHOS, CMP, LIPID, URIC #### [facility] [address] [place], [place] [address] Dr. Sarmad Patino SEG % 77.0 % Critically high 43.0-75.0 [facility] Comment on above: Performed By: #### D DAVIDSON, MG, PHOS, CMP, LIPID, URIC #### [facility] [address] [place], [place] [address] Dr. Sarmad Patino WBC 14.0 103/ul Critically high 4.0-11.0 The [facility] Comment on above: Performed By: #### D DAVIDSON, MG, PHOS, CMP, LIPID, URIC #### [facility] [address] [place], [place] [address]ECK [address] W [...] middle ear cavities clear. Skull base intact. Stock Shaper spaces normal. Parotid glands normal. Submandibular glands [...] F HOPPER Date: 2022-01-03 10:40 Normal [facility] Covid-19 PCR (CVDTB)on SARS-CoV-2 (COVID-19) RNA MURALI+probe Ql (Unsp spec) Detected Critically abnormal NOT DETECTED [facility] Comment on above: Result Comment: This test is not yet approved or cleared by the [place] FDA. When there are no FDA-approved or cleared tests available, and other criteria are met, FDA can make tests available under an emergency access mechanism called an Emergency Use Authorization (EUA). The EUA for this test is supported by the [place] of Health and Human Service's declaration that [...] DAVIDSON, MG, PHOS, CMP, LIPID, URIC #### [facility] [address] [place] [address] Dr. Sarmad Patino GROUP A STREP CULTUREon S. pyogenes Ag Ql (Unsp spec) Culture Observations: Negative for Group A Streptococcus Normal [facility] Comment on above: Performed By: #### U MAXI, LIPID, MG, CMP, DBIL, PHOS #### [facility] [address] [address] [address] Sarmad Patino INFLUENZA A AND B AGon 01-03 INFLUENZA A AG Negative Normal NEGATIVE SEE COMMENT [facility] Comment on above: Performed By: #### D DAVIDSNO, MG, PHOS, CMP, LIPID, URIC #### [facility] [address] [place] [address] Dr. Sarmad Patino INFLUENZA B AG Negative Normal NEGATIVE SEE COMMENT [facility] Comment on above: Performed By: #### D DAVIDSON, MG, PHOS, CMP, LIPID, URIC #### [facility] [address] [address] [address] Sarmad Patino INTERNAL CONTROLS Within Normal Limits Normal Wi thin Normal Limits [facility] Comment on above: Performed By: #### D DAVIDSON, MG, PHOS, CMP, LIPID, URIC #### [facility] [address] [address] [address] Sarmad Patino PROF 14(COMP METB)on 022 Albumin [Mass/Vol] 2.5 g/dL Critically low 3.4-5.0 [facility] Comment on above: Performed By: #### U MAXI, LIPID, MG, CMP, DBIL, PHOS #### [facility] [address] [address] [address] Sarmad Patino Albumin/Globulin [Mass ratio] 0.5 {ratio} Normal [facility] Comment on above: Performed By: #### U MAXI, LIPID, MG, CMP, DBIL, PHOS #### [facility] [address] [address] [address] Sarmad Patino ALP [Catalytic activity/Vol] 185 U/L Critically high 46-116 [facility] Comment on above: Performed By: #### U MAXI, LIPID, MG, CMP, DBIL, PHOS #### [facility] [address] [place] [address] Dr. Sarmad Patino ALT [Catalytic activity/Vol] 108 U/L Critically high 14-59 [facility] Comment on above: Performed By: #### U MAXI, LIPID, MG, CMP, DBIL, PHOS #### [facility] [address] [address] [address] Sarmad Patino Anion gap [Moles/Vol] 8.3 mmol/L Normal [facility] Comment on above: Performed By: #### U MAXI, LIPID, MG, CMP, DBIL, PHOS #### [facility] [address] [place] [address] Dr. Sarmad Patino AST [Catalytic activity/Vol] 59 U/L Critically high 15-37 [facility] Comment on above: Performed By: #### U MAXI, LIPID, MG, CMP, DBIL, PHOS #### [facility] [address] [address] [address] Sarmad Patino Bilirubin [Mass/Vol] 0.6 mg/dL Normal 0.2-1.0 [facility] Comment on above: Performed By: #### U MAXI, LIPID, MG, CMP, DBIL, PHOS #### [facility] [address] [address] [address] Sarmad Patino Calcium [Mass/Vol] 9.0 mg/dL Normal 8.5-10.1 [facility] Comment on above: Performed By: #### U MAXI, LIPID, MG, CMP, DBIL, PHOS #### [facility] [address] [place] [address] Dr. Sarmad Patino Chloride [Moles/Vol] 100 mmol/L Normal 98-107 [facility] Comment on above: Performed By: #### U MAXI, LIPID, MG, CMP, DBIL, PHOS #### [facility] [address] [place] [address] Dr. Sarmad Patino CO2 [Moles/Vol] 29.0 mmol/L Normal 21.0-32.0 [facility] Comment on above: Performed By: #### U MAXI, LIPID, MG, CMP, DBIL, PHOS #### [facility] [address] [place] [address] Dr. Sarmad Patino Creatinine [Mass/Vol] 1.05 mg/dL Critically high 0.55-1.02 [facility] Comment on above: Performed By: #### U MAXI, LIPID, MG, CMP, DBIL, PHOS #### [facility] [address] [place] [address] Dr. Sarmad Patino EGFR-AF TANZANIAN >60 Normal >=60 [facility] Comment on above: Performed By: #### U MAXI, LIPID, MG, CMP, DBIL, PHOS #### [facility] [address] [place] [address] Dr. Sarmad Patino EGFR-NON AF TANZANIAN 53 mL/min/1.73m2 Critically low >=60 [facility] Comment on above: Performed By: #### U MAXI, LIPID, MG, CMP, DBIL, PHOS #### [facility] [address] [address] [address] Sarmad Patino Globulin (S) [Mass/Vol] 4.6 g/dL Normal [facility] Comment on above: Performed By: #### U MAXI, LIPID, MG, CMP, DBIL, PHOS #### [facility] [address] [place] [address] Dr. Sarmad Patino Glucose [Mass/Vol] 154 mg/dL Critically high 74-106 T [facility] Comment on above: Performed By: #### U MAXI, LIPID, MG, CMP, DBIL, PHOS #### [facility] [address] [place] [address] Dr. Sarmad Patino Potassium [Moles/Vol] 3.3 mmol/L Critically low 3.5-5.1 [facility] Comment on above: Performed By: #### U MAXI, LIPID, MG, CMP, DBIL, PHOS #### [facility] [address] [place] [address] Dr. Sarmad Patino Protein [Mass/Vol] 7.1 g/dL Normal 6.4-8.2 [facility] Comment on above: Performed By: #### U MAXI, LIPID, MG, CMP, DBIL, PHOS #### [facility] [address] [place] [address] Dr. Sarmad Patino Sodium [Moles/Vol] 134 mmol/L Critically low 136-145 [facility] Comment on above: Performed By: #### U MAXI, LIPID, MG, CMP, DBIL, PHOS #### [facility] [address] [place] [address] Dr. Sarmad Patino Urea nitrogen [Mass/Vol] 24.0 mg/dL Critically high 7.0-18.0 [facility] Comment on above: Performed By: #### U MAXI, LIPID, MG, CMP, DBIL, PHOS #### [facility] [address] [place] [address] Dr. Sarmad Patino Urea nitrogen/Creatinine [Mass ratio] 22.9 mg/mg Normal [facility] Comment on above: Performed By: #### U MAXI, LIPID, MG, CMP, DBIL, PHOS #### [facility] [address] [place], [place] [address] Dr. Sarmad Patino STREPT SCREENon 01-03-2022 STREP SCREEN A Negative Normal NEGATIVE The [facility] Comment on above: Performed By: #### U MAXI, LIPID, MG, CMP, DBIL, PHOS #### [facility] [address] [place], [place] [address] Dr. Sarmad Patino XR CHEST 2 Von [...] MAYRA WHITESIDE Date: 2022-01-03 03:54 Normal [facility] Quick Strepon 12-28-2021 S. pyogenes Org specific cx Ql (Throat) Negative [employer] Other Quick Strep [employer] Other SARS-CoV-2 (COVID-19) RNA NA A+probe Ql (Resp)on 12-25-2021 SARS-CoV-2 (COVID-19) RNA MURALI+probe Ql (Unsp spec) Negative [employer] Other FK506 (TACROLIMUS) WHOLE BLO ODon 12-08-2021 Tacrolimus (FK506), Blood 6.6 ng/mL Normal 2.0-20.0 [facility] Comment on above: Result Comment: Trou gh (immediately following transplant) 15.0 . Trough (steady state, 2 weeks or more after transplant): 3.0 - 8.0 . Performed by LC-MS/MS technology. Performed By: #### D DAVIDSON, MG, PHOS, CMP, LIPID, URIC #### [facility] [address] [place] [address] Dr. Sarmad Patino RAPAMUNE(SIROLIMUS)on 2021 Rapamune(Sirolimus) , whole blood 9.6 ng/mL Normal 3.0-20.0 [facility] Comment on above: Result Comment: Perf ormed by LC/MS-MS technology . This test was developed and its performance characteristics determined by [employer]. It has not been cleared or approved by the Food and Drug Administration. Performed By: #### D DAVIDSON, MG, PHOS, CMP, LIPID, URIC #### [facility] [address] [place] [address] Dr. Sarmad Patino BILIRUBIN CONJUGATED (DIRECT )on 12-05-2021 BILI, CONJUGATED 0.1 mg/dL Normal 0.0-0.2 The [facility] Comment on above: Performed By: #### D DAVIDSON, MG, PHOS, CMP, LIPID, URIC #### [facility] [address] [place] [address] Dr. Sarmad Patino CBC W MANUAL DIFFon 12-06-19 22 ATYPICAL LYMPH # Normal The [facility] Comment on above: Performed By: #### D DAVIDSON, MG, PHOS, CMP, LIPID, URIC #### [facility] [address] [place] [address] Dr. Sarmad Patino ATYPICAL LYMPH % Normal The [facility] Comment on above: Performed By: #### D DAVIDSON, MG, PHOS, CMP, LIPID, URIC #### [facility] [address] [place] [address] Dr. Sarmad Patino BAND # Normal 0.0-0.3 [facility] Comment on above: Performed By: #### D DAVIDSON, MG, PHOS, CMP, LIPID, URIC #### [facility] [address] [place] [address] Dr. Sarmad Patino BAND % Normal 0-5 [facility] Comment on above: Performed By: #### D DAVIDSON, MG, PHOS, CMP, LIPID, URIC #### [facility] [address] [address] [address] Sarmad SEALSOM # 0.00 103/ul Normal 0.00-0.10 [facility] Comment on above: Performed By: #### D DAVIDSON, MG, PHOS, CMP, LIPID, URIC #### [facility] [address] [address] [address] Sarmad Patino BASOM % 0.0 % Critically low 0.2-2.0 [facility] Comment on above: Performed By: #### D DAVIDSON, MG, PHOS, CMP, LIPID, URIC #### [facility] [address] [place] [address] Dr. Sarmad Patino BLAST # Normal [facility] Comment on above: Performed By: #### D DAVIDSON, MG, PHOS, CMP, LIPID, URIC #### [facility] [address] [place] [address] Dr. Sarmad Patino BLAST % Normal [facility] Comment on above: Performed By: #### D DAVIDSON, MG, PHOS, CMP, LIPID, URIC #### [facility] [address] [address] [address] Sarmad Patino CORRECTED WBC Normal 4.0-11.0 [facility] Comment on above: Performed By: #### D DAVIDSON, MG, PHOS, CMP, LIPID, URIC #### [facility] [address] [address] [address] Sarmad Patino EOS # 0.15 103/ul Normal 0.00-0.70 [facility] Comment on above: Performed By: #### D DAVIDSON, MG, PHOS, CMP, LIPID, URIC #### [facility] [address] [address] [address] Sarmad Patino EOS% 2.0 % Normal 0.9-7.0 [facility] Comment on above: Performed By: #### D DAVIDSON, MG, PHOS, CMP, LIPID, URIC #### [facility] [address] [place] [address] Dr. Sarmad Patino HCT 47.5 % Normal 36.0-48.0 [facility] Comment on above: Performed By: #### D DAVIDSON, MG, PHOS, CMP, LIPID, URIC #### [facility] [address] [address] [address] Sarmad Patino HGB 15.6 g/dl Normal 12.0-16.0 [facility] Comment on above: Performed By: #### D DAVIDSON, MG, PHOS, CMP, LIPID, URIC #### [facility] [address] [address] [address] Sarmad Patino LYMPHM # 1.46 103/ul Normal 1.20-3.80 [facility] Comment on above: Performed By: #### D DAVIDSON, MG, PHOS, CMP, LIPID, URIC #### [facility] [address] [place] [address] Dr. Sarmad Patino LYMPHM% 19.0 % Critically low 20.5-60.0 [facility] Comment on above: Performed By: #### D DAVIDSON, MG, PHOS, CMP, LIPID, URIC #### [facility] [address] [address] [address] Sarmad Patino MCH 28.9 pg Normal 26.7-34.0 [facility] Comment on above: Performed By: #### D DAVIDSON, MG, PHOS, CMP, LIPID, URIC #### [facility] [address] [address] [address] Sarmad Patino MCHC 32.8 g/dl Normal 29.9-35.2 [facility] Comment on above: Performed By: #### D DAVIDSON, MG, PHOS, CMP, LIPID, URIC #### [facility] [address] [address] [address] Sarmad Patino MCV 88.1 fL Normal 81.0-99.0 [facility] Comment on above: Performed By: #### D DAVIDSON, MG, PHOS, CMP, LIPID, URIC #### [facility] [address] [address] [address] Sarmad Patino METAMYELOCYTE # Normal [facility] Comment on above: Performed By: #### D ADVIDSON, MG, PHOS, CMP, LIPID, URIC #### [facility] [address] [address] [address] Sarmad Patino METAMYELOCYTE % Normal [facility] Comment on above: Performed By: #### D DAVIDSON, MG, PHOS, CMP, LIPID, URIC #### [facility] [address] [address] [address] Sarmad Patino MONOM# 0.85 103/ul Critically high 0.30-0.80 [facility] Comment on above: Performed By: #### D DAVIDSON, MG, PHOS, CMP, LIPID, URIC #### [facility] [address] [address] [address] Sarmad Patino MONOM% 11.0 % Normal 1.7-12.0 [facility] Comment on above: Performed By: #### D DAVIDSON, MG, PHOS, CMP, LIPID, URIC #### [facility] [address] [place] [address] Dr. Sarmad Patino MPV 11.3 fL Normal 9.5-13.5 [facility] Comment on above: Performed By: #### D DAVIDSON, MG, PHOS, CMP, LIPID, URIC #### [facility] [address] [place] [address] Dr. Sarmad Patino MYELOCYTE # Normal [facility] Comment on above: Performed By: #### D DAVIDSON, MG, PHOS, CMP, LIPID, URIC #### [facility] [address] [address] [address] Sarmad Patino MYELOCYTE % Normal [facility] Comment on above: Performed By: #### D DAVIDSON, MG, PHOS, CMP, LIPID, URIC #### [facility] [address] [address] [address] Sarmad Patnio NRBC Normal [facility] Comment on above: Performed By: #### D DAVIDSON, MG, PHOS, CMP, LIPID, URIC #### [facility] [address] [address] [address] Sarmad Patino PLT 214 103/ul Normal 150-450 [facility] Comment on above: Performed By: #### D DAVIDSON, MG, PHOS, CMP, LIPID, URIC #### [facility] [address] [address] [address] Sarmad Patino RBC 5.39 106/ul Normal 4.20-5.40 [facility] Comment on above: Performed By: #### D DAVIDSON, MG, PHOS, CMP, LIPID, URIC #### [facility] [address] [address] [address] Sarmad Patino RDW 13.8 % Normal 11.0-15.0 [facility] Comment on above: Performed By: #### D DAVIDSON, MG, PHOS, CMP, LIPID, URIC #### [facility] [address] [place] [address] Dr. Sarmad Patino SEG # 5.24 103/ul Normal 1.40-6.50 [facility] Comment on above: Performed By: #### D DAVIDSON, MG, PHOS, CMP, LIPID, URIC #### [facility] [address] [place] [address] Dr. Sarmad Patino SEG % 68.0 % Normal 43.0-75.0 [facility] Comment on above: Performed By: #### D DAVIDSON, MG, PHOS, CMP, LIPID, URIC #### [facility] [address] [place] [address] Dr. Sarmad Patino WBC 7.7 103/ul Normal 4.0-11.0 [facility] Comment on above: Performed By: #### D DAVIDSON, MG, PHOS, CMP, LIPID, URIC #### [facility] [address] [place] [address] Dr. Sarmad Patino LIPID PROFILEon 12-05-2021 CHOL-HDL RATIO NORM SEE BELOW Normal [facility] Comment on above: Result Comment: 3.3 - 4.4 LOW RISK 4.4 - 7.1 AVERAGE RISK 7.1 - 11.0 MODERATE RISK >11.0 HIGH RISK Performed By: #### D DAVIDSON, MG, PHOS, CMP, LIPID, URIC #### [facility] [address] [place] [address] Dr. Sarmad Patino Cholesterol [Mass/Vol] 170 mg/dL Normal <=200 [facility] Comment on above: Performed By: #### D DAVIDSON, MG, PHOS, CMP, LIPID, URIC #### [facility] [address] [address] [address] Sarmad Patino Cholesterol in HDL [Mass/Vol] 54 mg/dL Normal 40-60 [facility] Comment on above: Performed By: #### D DAVIDSON, MG, PHOS, CMP, LIPID, URIC #### [facility] [address] [address] [address] Sarmad Patino Cholesterol in LDL [Mass/Vol] 92.2 mg/dL Normal [facility] Comment on above: Performed By: #### D DAVIDSON, MG, PHOS, CMP, LIPID, URIC #### [facility] [address] [place] [address] Dr. Sarmad Patino Cholesterol.total/C holesterol in HDL [Mass ratio] 3.1 {ratio} Normal [facility] Comment on above: Performed By: #### D DAVIDSON, MG, PHOS, CMP, LIPID, URIC #### [facility] [address] [address] [address] Sarmad Patino HDL NORMAL > or = 60 mg/dl - LO W CARDIOVASCULAR RISK <40 mg/dl - HIGH CARDIOVASCULAR RISK Normal [facility] Comment on above: Performed By: #### D DAVIDSON, MG, PHOS, CMP, LIPID, URIC #### [facility] [address] [address] [address] Sarmad Patino LDL CALC NORMAL SEE BELOW Normal [facility] Comment on above: Result Comment: <100 mg/dl OPTIMAL 100 - 129 mg/dl NEAR OR ABOVE OPTIMAL 130 - 159 mg/dl BORDERLINE HIGH 160 - 189 mg/dl HIGH >190 mg/dl VERY HIGH Performed By: #### D DAVIDSON, MG, PHOS, CMP, LIPID, URIC #### [facility] [address] [place] [address] Dr. Sarmad Patino Triglyceride [Mass/Vol] 119 mg/dL Normal <=150 [facility] Comment on above: Performed By: #### D DAVIDSON, MG, PHOS, CMP, LIPID, URIC #### [facility] [address] [address] [address] Sarmad Patino VLDL CALC 23.8 mg/dL Normal [facility] Comment on above: Performed By: #### D DAVIDSON, MG, PHOS, CMP, LIPID, URIC #### [facility] [address] [address] [address] Sarmad Patino MAGNESIUMon 12-05-2021 Magnesium [Mass/Vol] 1.8 mg/dL Normal 1.8-2.4 [facility] Comment on above: Performed By: #### D DAVIDSON, MG, PHOS, CMP, LIPID, URIC #### [facility] [address] [address] [address] Sarmad Patino PHOSPHORUSon 12-05-2021 Phosphate [Mass/Vol] 3.8 mg/dL Normal 2.6-4.7 [facility] Comment on above: Performed By: #### D DAVIDSON, MG, PHOS, CMP, LIPID, URIC #### [facility] [address] [place] [address] Dr. Sarmad Patino PROF 14(COMP METB)on 022 Albumin [Mass/Vol] 3.7 g/dL Normal 3.4-5.0 [facility] Comment on above: Performed By: #### D DAVIDSON, MG, PHOS, CMP, LIPID, URIC #### [facility] [address] [place] [address] Dr. Sarmad Patino Albumin/Globulin [Mass ratio] 1.0 {ratio} Normal [facility] Comment on above: Performed By: #### D DAVIDSON, MG, PHOS, CMP, LIPID, URIC #### [facility] [address] [place] [address] Dr. Sarmad Patino ALP [Catalytic activity/Vol] 151 U/L Critically high 46-116 [facility] Comment on above: Performed By: #### D DAVIDSON, MG, PHOS, CMP, LIPID, URIC #### [facility] [address] [place] [address] Dr. Sarmad Patino ALT [Catalytic activity/Vol] 27 U/L Normal 14-59 [facility] Comment on above: Performed By: #### D DAVIDSON, MG, PHOS, CMP, LIPID, URIC #### [facility] [address] [address] [address] Sarmad Patino Anion gap [Moles/Vol] 14.5 mmol/L Normal [facility] Comment on above: Performed By: #### D DAVIDSON, MG, PHOS, CMP, LIPID, URIC #### [facility] [address] [address] [address] Sarmad Patino AST [Catalytic activity/Vol] 25 U/L Normal 15-37 [facility] Comment on above: Performed By: #### D DAVIDSON, MG, PHOS, CMP, LIPID, URIC #### [facility] [address] [place] [address] Dr. Sarmad Patino Bilirubin [Mass/Vol] 0.4 mg/dL Normal 0.2-1.0 [facility] Comment on above: Performed By: #### D DAVIDSON, MG, PHOS, CMP, LIPID, URIC #### [facility] [address] [place] [address] Dr. Sarmad Patino Calcium [Mass/Vol] 9.4 mg/dL Normal 8.5-10.1 [facility] Comment on above: Performed By: #### D DAVIDSON, MG, PHOS, CMP, LIPID, URIC #### [facility] [address] [place] [address] Dr. Sarmad Patino Chloride [Moles/Vol] 103 mmol/L Normal 98-107 [facility] Comment on above: Performed By: #### D DAVIDSON, MG, PHOS, CMP, LIPID, URIC #### [facility] [address] [place] [address] Dr. Sarmad aPtino CO2 [Moles/Vol] 26.5 mmol/L Normal 21.0-32.0 [facility] Comment on above: Performed By: #### D DAVIDSON, MG, PHOS, CMP, LIPID, URIC #### [facility] [address] [place] [address] Dr. Sarmad Patino Creatinine [Mass/Vol] 0.87 mg/dL Normal 0.55-1.02 [facility] Comment on above: Performed By: #### D DAVIDSON, MG, PHOS, CMP, LIPID, URIC #### [facility] [address] [address] [address] Sarmad Patino EGFR-AF TANZANIAN >60 Normal >=60 [facility] Comment on above: Performed By: #### D DAVIDSON, MG, PHOS, CMP, LIPID, URIC #### [facility] [address] [address] [address] Sarmad Patino EGFR-NON AF TANZANIAN >60 Normal >=60 [facility] Comment on above: Performed By: #### D DAVIDSON, MG, PHOS, CMP, LIPID, URIC #### [facility] [address] [place] [address] Dr. Sarmad Patino Globulin (S) [Mass/Vol] 3.8 g/dL Normal [facility] Comment on above: Performed By: #### D DAVIDSON, MG, PHOS, CMP, LIPID, URIC #### [facility] [address] [address] [address] Sarmad Patino Glucose [Mass/Vol] 104 mg/dL Normal 74-106 [facility] Comment on above: Performed By: #### D DAVIDSON, MG, PHOS, CMP, LIPID, URIC #### [facility] [address] [place] [address] Dr. Sarmad Patino Potassium [Moles/Vol] 4.0 mmol/L Normal 3.5-5.1 [facility] Comment on above: Performed By: #### D DAVIDSON, MG, PHOS, CMP, LIPID, URIC #### [facility] [address] [place] [address] Dr. Sarmad Patino Protein [Mass/Vol] 7.5 g/dL Normal 6.4-8.2 [facility] Comment on above: Performed By: #### D DAVIDSON, MG, PHOS, CMP, LIPID, URIC #### [facility] [address] [address] [address] Sarmad Patino Sodium [Moles/Vol] 140 mmol/L Normal 136-145 [facility] Comment on above: Performed By: #### D DAVIDSON, MG, PHOS, CMP, LIPID, URIC #### [facility] [address] [place] [address] Dr. Sarmad Patino Urea nitrogen [Mass/Vol] 19.0 mg/dL Critically high 7.0-18.0 [facility] Comment on above: Performed By: #### D DAVIDSON, MG, PHOS, CMP, LIPID, URIC #### [facility] [address] [place] [address] Dr. Sarmad Patino Urea nitrogen/Creatinine [Mass ratio] 21.8 mg/mg Normal [facility] Comment on above: Performed By: #### D DAVIDSON, MG, PHOS, CMP, LIPID, URIC #### [facility] [address] [place] [address] Dr. Sarmad Patino URIC ACID SERUMon 12-05-2021 Urate [Mass/Vol] 5.2 mg/dL Normal 2.6-6.0 [facility] Comment on above: Performed By: #### D DAVIDSON, MG, PHOS, CMP, LIPID, URIC #### [facility] [address] [place] [address] Dr. Sarmad Patino EVEROLIMU, WHOLE BLOODon EVEROLIMUS 7.0 ng/mL Normal 3.0-8.0 [facility] Comment on above: Result Comment: Perf ormed by LC-MS/MS technology. Performed By: #### D DAVIDSON, MG, PHOS, CMP, LIPID, URIC #### [facility] [address] [place] [address] Dr. Sarmad Patino FK506 (TACROLIMUS) WHOLE BLO ODon 11-10-2021 Tacrolimus (FK506), Blood 6.4 ng/mL Normal 2.0-20.0 [facility] Comment on above: Result Comment: Trou gh (immediately following transplant) 15.0 . Trough (steady state, 2 weeks or more after transplant): 3.0 - 8.0 . Performed by LC-MS/MS technology. Performed By: #### D DAVIDSON, MG, PHOS, CMP, LIPID, URIC #### [facility] [address] [place] [address] Dr. Sarmad Patino BK VIRUS PCR QUANTon 022 BKV DNA QUANT PCR PLASMA Negative Normal Negative [facility] Comment on above: Result Comment: No B K DNA detected. . The linear range of the assay is 22 - 100,000,000 IU/mL. Performed By: #### U MAXI, LIPID, MG, CMP, DBIL, PHOS #### [facility] [address] [place] [address] Dr. Sarmad Patino Log10 BKV DNA Plasma Normal [facility] Comment on above: Performed By: #### U MAXI, LIPID, MG, CMP, DBIL, PHOS #### [facility] [address] [place] [address] Dr. Sarmad Patino BILIRUBIN CONJUGATED (DIRECT )on 11-07-2021 BILI, CONJUGATED 0.1 mg/dL Normal 0.0-0.2 [facility] Comment on above: Performed By: #### D DAVIDSON, MG, PHOS, CMP, LIPID, URIC #### [facility] [address] [place] [address] Dr. Sarmad Patino CBC AUTO DIFFon 11-07-2021 BASO # 0.0 103/ul Normal 0.0-0.1 [facility] Comment on above: Performed By: #### D DAVIDSON, MG, PHOS, CMP, LIPID, URIC #### [facility] [address] [place] [address] Dr. Sarmad Patino Basophils/100 WBC (Bld) 0.3 % Normal 0.2-2.0 [facility] Comment on above: Performed By: #### D DAVIDSON, MG, PHOS, CMP, LIPID, URIC #### [facility] [address] [place] [address] Dr. Sarmad Patino EO # 0.1 103/ul Normal 0.0-0.7 [facility] Comment on above: Performed By: #### D DAVIDSON, MG, PHOS, CMP, LIPID, URIC #### [facility] [address] [place] [address] Dr. Sarmad Patino Eosinophils/100 WBC (Bld) 2.1 % Normal 0.9-7.0 [facility] Comment on above: Performed By: #### D DAVIDSON, MG, PHOS, CMP, LIPID, URIC #### [facility] [address] [place] [address] Dr. Sarmad Patino Erythrocyte distribution width (RBC) [Ratio] 13.5 % Normal 11.0-15.0 [facility] Comment on above: Performed By: #### D DAVIDSON, MG, PHOS, CMP, LIPID, URIC #### [facility] [address] [place] [address] Dr. Sarmad Patino Hematocrit (Bld) [Volume fraction] 46.7 % Normal 36.0-48.0 [facility] Comment on above: Performed By: #### D DAVIDSON, MG, PHOS, CMP, LIPID, URIC #### [facility] [address] [place] [address] Dr. Sarmad Patino Hemoglobin (Bld) [Mass/Vol] 15.1 g/dL Normal 12.0-16.0 [facility] Comment on above: Performed By: #### D DAVIDSON, MG, PHOS, CMP, LIPID, URIC #### [facility] [address] [place] [address] Dr. Sarmad Patino IG # 0.03 10e3/ul Normal 0.00-0.03 [facility] Comment on above: Performed By: #### D DAVIDSON, MG, PHOS, CMP, LIPID, URIC #### [facility] [address] [place] [address] Dr. Sarmad Patino IG % 0.5 % Normal 0.0-0.5 [facility] Comment on above: Performed By: #### D DAVIDSON, MG, PHOS, CMP, LIPID, URIC #### [facility] [address] [place] [address] Dr. Sarmad Patino LYMPH # 1.3 103/ul Normal 1.2-3.8 [facility] Comment on above: Performed By: #### D DAVIDSON, MG, PHOS, CMP, LIPID, URIC #### [facility] [address] [place] [address] Dr. Sarmad Patino Lymphocytes/100 WBC (Bld) 19.9 % Critically low 20.5-60.0 [facility] Comment on above: Performed By: #### D DAVIDSON, MG, PHOS, CMP, LIPID, URIC #### [facility] [address] [place] [address] Dr. Sarmad Patino MANUAL DIFF REQ NO Normal [facility] Comment on above: Performed By: #### D DAVIDSON, MG, PHOS, CMP, LIPID, URIC #### [facility] [address] [place] [address] Dr. Sarmad Patino MCH (RBC) [Entitic mass] 28.6 pg Normal 26.7-34.0 [facility] Comment on above: Performed By: #### D DAVIDSON, MG, PHOS, CMP, LIPID, URIC #### [facility] [address] [place] [address] Dr. Sarmad Patino MCHC (RBC) [Mass/Vol] 32.3 g/dL Normal 29.9-35.2 [facility] Comment on above: Performed By: #### D DAVIDSON, MG, PHOS, CMP, LIPID, URIC #### [facility] [address] [place] [address] Dr. Sarmad Patino MCV (RBC) [Entitic vol] 88.4 fL Normal 81.0-99.0 [facility] Comment on above: Performed By: #### D DAVIDSON, MG, PHOS, CMP, LIPID, URIC #### [facility] [address] [place] [address] Dr. Sarmad Patino MONO # 0.8 103/ul Normal 0.3-0.8 [facility] Comment on above: Performed By: #### D DAVIDSON, MG, PHOS, CMP, LIPID, URIC #### [facility] [address] [place] [address] Dr. Sarmad Patino Monocytes/100 WBC (Bld) 12.9 % Critically high 1.7-12.0 [facility] Comment on above: Performed By: #### D DAVIDSON, MG, PHOS, CMP, LIPID, URIC #### [facility] [address] [place] [address] Dr. Sarmad Patino NEUT # 4.0 103/ul Normal 1.4-6.5 [facility] Comment on above: Performed By: #### D DAVIDSON, MG, PHOS, CMP, LIPID, URIC #### [facility] [address] [place] [address] Dr. Sarmad Patino Neutrophils/100 WBC (Bld) 64.3 % Normal 43.0-75.0 [facility] Comment on above: Performed By: #### D DAVIDSON, MG, PHOS, CMP, LIPID, URIC #### [facility] [address] [place] [address] Dr. Sarmad Patino Platelet mean volume (Bld) [Entitic vol] 11.3 fL Normal 9.5-13.5 [facility] Comment on above: Performed By: #### D DAVIDSON, MG, PHOS, CMP, LIPID, URIC #### [facility] [address] [place] [address] Dr. Sarmad Patino PLT 241 103/ul Normal 150-450 [facility] Comment on above: Performed By: #### D DAVIDSON, MG, PHOS, CMP, LIPID, URIC #### [facility] [address] [place] [address] Dr. Sarmad Patino RBC 5.28 106/ul Normal 4.20-5.40 [facility] Comment on above: Performed By: #### D DAVIDSON, MG, PHOS, CMP, LIPID, URIC #### [facility] [address] [place] [address] Dr. Sarmad Patino WBC 6.3 103/ul Normal 4.0-11.0 [facility] Comment on above: Performed By: #### D DAVIDSON, MG, PHOS, CMP, LIPID, URIC #### [facility] [address] [place] [address] Dr. Sarmad Patino GLYCOHEMOGLOBIN A1Con 2021 ADA RECOMMENDATION SEE BELOW Normal [facility] Comment on above: Result Comment: ADA RECOMMENDED LIMIT 4.0 - 6.0 ADA THERAPEUTIC TARGET < 7.0 ACTION SUGGESTED > 7.0 Performed By: #### D DAVIDSON, MG, PHOS, CMP, LIPID, URIC #### [facility] [address] [place], [place] [id number] Dr. Sarmad Patino Glucose [Mass/Vol] 120 mg/dL Normal [facility] Comment on above: Performed By: #### D DAVIDSON, MG, PHOS, CMP, LIPID, URIC #### [facility] [address] [address] [address] Sarmad Patino HbA1c (Bld) [Mass fraction] 5.8 % Normal 4.5-6.2 [facility] Comment on above: Performed By: #### D DAVIDSON, MG, PHOS, CMP, LIPID, URIC #### [facility] [address] [address] [address] Sarmad Patino LIPID PROFILEon 11-07-2021 CHOL-HDL RATIO NORM SEE BELOW Normal [facility] Comment on above: Result Comment: 3.3 - 4.4 LOW RISK 4.4 - 7.1 AVERAGE RISK 7.1 - 11.0 MODERATE RISK >11.0 HIGH RISK Performed By: #### D DAVIDSON, MG, PHOS, CMP, LIPID, URIC #### [facility] [address] [place] [address] Dr. Sarmad Patino Cholesterol [Mass/Vol] 157 mg/dL Normal <=200 [facility] Comment on above: Performed By: #### D DAVIDSON, MG, PHOS, CMP, LIPID, URIC #### [facility] [address] [address] [address] Sarmad Patino Cholesterol in HDL [Mass/Vol] 48 mg/dL Normal 40-60 [facility] Comment on above: Performed By: #### D DAVIDSON, MG, PHOS, CMP, LIPID, URIC #### [facility] [address] [address] [address] Sarmad Patino Cholesterol in LDL [Mass/Vol] 89.6 mg/dL Normal [facility] Comment on above: Performed By: #### D DAVIDSON, MG, PHOS, CMP, LIPID, URIC #### [facility] [address] [address] [address] Sarmad Patino Cholesterol.total/C holesterol in HDL [Mass ratio] 3.3 {ratio} Normal [facility] Comment on above: Performed By: #### D DAVIDSON, MG, PHOS, CMP, LIPID, URIC #### [facility] [address] [address] [address] Sarmad Patino HDL NORMAL > or = 60 mg/dl - LO W CARDIOVASCULAR RISK <40 mg/dl - HIGH CARDIOVASCULAR RISK Normal [facility] Comment on above: Performed By: #### D DAVIDSON, MG, PHOS, CMP, LIPID, URIC #### [facility] [address] [address] [address] Sarmad Patino LDL CALC NORMAL SEE BELOW Normal [facility] Comment on above: Result Comment: <100 mg/dl OPTIMAL 100 - 129 mg/dl NEAR OR ABOVE OPTIMAL 130 - 159 mg/dl BORDERLINE HIGH 160 - 189 mg/dl HIGH >190 mg/dl VERY HIGH Performed By: #### D DAVIDSON, MG, PHOS, CMP, LIPID, URIC #### [facility] [address] [address] [address] Sarmad Patino Triglyceride [Mass/Vol] 97 mg/dL Normal <=150 [facility] Comment on above: Performed By: #### D DAVIDSON, MG, PHOS, CMP, LIPID, URIC #### [facility] [address] [address] [address] Sarmad Patino VLDL CALC 19.4 mg/dL Normal [facility] Comment on above: Performed By: #### D DAVIDSON, MG, PHOS, CMP, LIPID, URIC #### [facility] [address] [address] [address] Sarmad Patino MAGNESIUMon 11-07-2021 Magnesium [Mass/Vol] 1.9 mg/dL Normal 1.8-2.4 [facility] Comment on above: Performed By: #### D DAVIDSON, MG, PHOS, CMP, LIPID, URIC #### [facility] [address] [address] [address] Sarmad Patino PHOSPHORUSon 11-07-2021 Phosphate [Mass/Vol] 3.4 mg/dL Normal 2.6-4.7 [facility] Comment on above: Performed By: #### D DAVIDSON, MG, PHOS, CMP, LIPID, URIC #### [facility] [address] [place] [address] Dr. Sarmad Patino PROF 14(COMP METB)on 022 Albumin [Mass/Vol] 3.6 g/dL Normal 3.4-5.0 [facility] Comment on above: Performed By: #### D DAVIDSON, MG, PHOS, CMP, LIPID, URIC #### [facility] [address] [place] [address] Dr. Sarmad Patino Albumin/Globulin [Mass ratio] 0.9 {ratio} Normal [facility] Comment on above: Performed By: #### D DAVIDSON, MG, PHOS, CMP, LIPID, URIC #### [facility] [address] [place] [address] Dr. Sarmad Patino ALP [Catalytic activity/Vol] 158 U/L Critically high 46-116 [facility] Comment on above: Performed By: #### D DAVIDSON, MG, PHOS, CMP, LIPID, URIC #### [facility] [address] [place] [address] Dr. Sarmad Patino ALT [Catalytic activity/Vol] 23 U/L Normal 14-59 [facility] Comment on above: Performed By: #### D DAVIDSON, MG, PHOS, CMP, LIPID, URIC #### [facility] [address] [place] [address] Dr. Sarmad Patino Anion gap [Moles/Vol] 14.8 mmol/L Normal [facility] Comment on above: Performed By: #### D DAVIDSON, MG, PHOS, CMP, LIPID, URIC #### [facility] [address] [place] [address] Dr. Sarmad Patino AST [Catalytic activity/Vol] 18 U/L Normal 15-37 [facility] Comment on above: Performed By: #### D DAVIDSON, MG, PHOS, CMP, LIPID, URIC #### [facility] [address] [place] [address] Dr. Sarmad Patino Bilirubin [Mass/Vol] 0.4 mg/dL Normal 0.2-1.0 [facility] Comment on above: Performed By: #### D DAVIDSON, MG, PHOS, CMP, LIPID, URIC #### [facility] [address] [address] [address] Sarmad Patino Calcium [Mass/Vol] 9.3 mg/dL Normal 8.5-10.1 [facility] Comment on above: Performed By: #### D DAVIDSON, MG, PHOS, CMP, LIPID, URIC #### [facility] [address] [place] [address] Dr. Sarmad Patino Chloride [Moles/Vol] 105 mmol/L Normal 98-107 [facility] Comment on above: Performed By: #### D DAVIDSON, MG, PHOS, CMP, LIPID, URIC #### [facility] [address] [address] [address] Sarmad Patino CO2 [Moles/Vol] 26.1 mmol/L Normal 21.0-32.0 [facility] Comment on above: Performed By: #### D DAVIDSON, MG, PHOS, CMP, LIPID, URIC #### [facility] [address] [place] [address] Dr. Sarmad Patino Creatinine [Mass/Vol] 0.84 mg/dL Normal 0.55-1.02 [facility] Comment on above: Performed By: #### D DAVIDSON, MG, PHOS, CMP, LIPID, URIC #### [facility] [address] [place] [address] Dr. Sarmad Patino EGFR-AF TANZANIAN >60 Normal >=60 [facility] Comment on above: Performed By: #### D DAVIDSON, MG, PHOS, CMP, LIPID, URIC #### [facility] [address] [place] [address] Dr. Sarmad Patino EGFR-NON AF TANZANIAN >60 Normal >=60 [facility] Comment on above: Performed By: #### D DAVIDSON, MG, PHOS, CMP, LIPID, URIC #### [facility] [address] [place] [address] Dr. Sarmad Patino Globulin (S) [Mass/Vol] 3.8 g/dL Normal [facility] Comment on above: Performed By: #### D DAVIDSON, MG, PHOS, CMP, LIPID, URIC #### [facility] [address] [address] [address] Sarmad Patino Glucose [Mass/Vol] 97 mg/dL Normal 74-106 [facility] Comment on above: Performed By: #### D DAVIDSON, MG, PHOS, CMP, LIPID, URIC #### [facility] [address] [place] [address] Dr. Sarmad Patino Potassium [Moles/Vol] 3.9 mmol/L Normal 3.5-5.1 [facility] Comment on above: Performed By: #### D DAVIDSON, MG, PHOS, CMP, LIPID, URIC #### [facility] [address] [place] [address] Dr. Sarmad Patino Protein [Mass/Vol] 7.4 g/dL Normal 6.4-8.2 [facility] Comment on above: Performed By: #### D DAVIDSON, MG, PHOS, CMP, LIPID, URIC #### [facility] [address] [place] [address] Dr. Sarmad Patino Sodium [Moles/Vol] 142 mmol/L Normal 136-145 [facility] Comment on above: Performed By: #### D DAVIDSON, MG, PHOS, CMP, LIPID, URIC #### [facility] [address] [place] [address] Dr. Sarmad Patino Urea nitrogen [Mass/Vol] 21.0 mg/dL Critically high 7.0-18.0 [facility] Comment on above: Performed By: #### D DAVIDSON, MG, PHOS, CMP, LIPID, URIC #### [facility] [address] [place] [address] Dr. Sarmad Patino Urea nitrogen/Creatinine [Mass ratio] 25.0 mg/mg Normal [facility] Comment on above: Performed By: #### D DAVIDSON, MG, PHOS, CMP, LIPID, URIC #### [facility] [address] [place] [address] Dr. Sarmad Patino URIC ACID SERUMon 11-07-2021 Urate [Mass/Vol] 5.1 mg/dL Normal 2.6-6.0 [facility] Comment on above: Performed By: #### D DAVIDSON, MG, PHOS, CMP, LIPID, URIC #### [facility] [address] [place] [address] Dr. Sarmad Patino BOX TEST SENT OUTon 10-16-19 22 SENT TO REF LAB 10/15/2021 Normal [facility] Comment on above: Performed By: #### D DAVIDSON, MG, PHOS, CMP, LIPID, URIC #### [facility] [address] [place] [address] Dr. Sarmad Patino EVEROLIMU, WHOLE BLOODon EVEROLIMUS 6.7 ng/mL Normal 3.0-8.0 [facility] Comment on above: Result Comment: Perf ormed by LC-MS/MS technology. Performed By: #### D DAVIDSON, MG, PHOS, CMP, LIPID, URIC #### [facility] [address] [place] [address] Dr. Sarmad Patino FK506 (TACROLIMUS) WHOLE BLO ODon 10-10-2021 Tacrolimus (FK506), Blood 5.9 ng/mL Normal 2.0-20.0 [facility] Comment on above: Result Comment: Trou gh (immediately following transplant) 15.0 . Trough (steady state, 2 weeks or more after transplant): 3.0 - 8.0 . Performed by LC-MS/MS technology. Performed By: #### D DAVIDSON, MG, PHOS, CMP, LIPID, URIC #### [facility] [address] [place] [address] Dr. Sarmad Patino BILIRUBIN CONJUGATED (DIRECT )on 10-08-2021 BILI, CONJUGATED 0.1 mg/dL Normal 0.0-0.2 [facility] Comment on above: Performed By: #### U MAXI, LIPID, MG, CMP, DBIL, PHOS #### [facility] [address] [place] [address] Dr. Sarmad Patino CBC AUTO DIFFon 10-08-2021 BASO # 0.0 103/ul Normal 0.0-0.1 [facility] Comment on above: Performed By: #### D DAVIDSON, MG, PHOS, CMP, LIPID, URIC #### [facility] [address] [place] [address] Dr. Sarmad Patino Basophils/100 WBC (Bld) 0.1 % Critically low 0.2-2.0 [facility] Comment on above: Performed By: #### D DAVIDSON, MG, PHOS, CMP, LIPID, URIC #### [facility] [address] [place] [address] Dr. Sarmad Patino EO # 0.1 103/ul Normal 0.0-0.7 [facility] Comment on above: Performed By: #### D DAVIDSON, MG, PHOS, CMP, LIPID, URIC #### [facility] [address] [place] [address] Dr. Sarmad Patino Eosinophils/100 WBC (Bld) 1.4 % Normal 0.9-7.0 [facility] Comment on above: Performed By: #### D DAVIDSON, MG, PHOS, CMP, LIPID, URIC #### [facility] [address] [place] [address] Dr. Sarmad Patino Erythrocyte distribution width (RBC) [Ratio] 13.6 % Normal 11.0-15.0 [facility] Comment on above: Performed By: #### D DAVIDSON, MG, PHOS, CMP, LIPID, URIC #### [facility] [address] [place] [address] Dr. Sarmad Patino Hematocrit (Bld) [Volume fraction] 47.5 % Normal 36.0-48.0 [facility] Comment on above: Performed By: #### D DAVIDSON, MG, PHOS, CMP, LIPID, URIC #### [facility] [address] [place] [address] Dr. Sarmad Patino Hemoglobin (Bld) [Mass/Vol] 15.7 g/dL Normal 12.0-16.0 [facility] Comment on above: Performed By: #### D DAVIDSON, MG, PHOS, CMP, LIPID, URIC #### [facility] [address] [place] [address] Dr. Sarmad Patino IG # 0.04 10e3/ul Critically high 0.00-0.03 [facility] Comment on above: Performed By: #### D DAVIDSON, MG, PHOS, CMP, LIPID, URIC #### [facility] [address] [place] [address] Dr. Sarmad Patino IG % 0.5 % Normal 0.0-0.5 [facility] Comment on above: Performed By: #### D DAVIDSON, MG, PHOS, CMP, LIPID, URIC #### [facility] [address] [place] [address] Dr. Sarmad Patino LYMPH # 1.3 103/ul Normal 1.2-3.8 [facility] Comment on above: Performed By: #### D DAVIDSON, MG, PHOS, CMP, LIPID, URIC #### [facility] [address] [place] [address] Dr. Sarmad Patino Lymphocytes/100 WBC (Bld) 15.4 % Critically low 20.5-60.0 [facility] Comment on above: Performed By: #### D DAVIDSON, MG, PHOS, CMP, LIPID, URIC #### [facility] [address] [place] [address] Dr. Sarmad Patino MANUAL DIFF REQ NO Normal [facility] Comment on above: Performed By: #### D DAVIDSON, MG, PHOS, CMP, LIPID, URIC #### [facility] [address] [place] [address] Dr. Sarmad Patino MCH (RBC) [Entitic mass] 29.1 pg Normal 26.7-34.0 [facility] Comment on above: Performed By: #### D DAVIDSON, MG, PHOS, CMP, LIPID, URIC #### [facility] [address] [place] [address] Dr. Sarmad Patino MCHC (RBC) [Mass/Vol] 33.1 g/dL Normal 29.9-35.2 [facility] Comment on above: Performed By: #### D DAVIDSON, MG, PHOS, CMP, LIPID, URIC #### [facility] [address] [place] [address] Dr. Sarmad Patino MCV (RBC) [Entitic vol] 88.0 fL Normal 81.0-99.0 [facility] Comment on above: Performed By: #### D DAVIDSON, MG, PHOS, CMP, LIPID, URIC #### [facility] [address] [address] [address] Sarmad Patino MONO # 0.9 103/ul Critically high 0.3-0.8 [facility] Comment on above: Performed By: #### D DAVIDSON, MG, PHOS, CMP, LIPID, URIC #### [facility] [address] [place] [address] Dr. Sarmad Patino Monocytes/100 WBC (Bld) 10.2 % Normal 1.7-12.0 [facility] Comment on above: Performed By: #### D DAVIDSON, MG, PHOS, CMP, LIPID, URIC #### [facility] [address] [place] [address] Dr. Sarmad Patino NEUT # 6.1 103/ul Normal 1.4-6.5 [facility] Comment on above: Performed By: #### D DAVIDSON, MG, PHOS, CMP, LIPID, URIC #### [facility] [address] [place] [address] Dr. Sarmad Patino Neutrophils/100 WBC (Bld) 72.4 % Normal 43.0-75.0 [facility] Comment on above: Performed By: #### D DAVIDSON, MG, PHOS, CMP, LIPID, URIC #### [facility] [address] [place] [address] Dr. Sarmad Patino Platelet mean volume (Bld) [Entitic vol] 11.1 fL Normal 9.5-13.5 [facility] Comment on above: Performed By: #### D DAVIDSON, MG, PHOS, CMP, LIPID, URIC #### [facility] [address] [place] [address] Dr. Sarmad Patino PLT 213 103/ul Normal 150-450 [facility] Comment on above: Performed By: #### D DAVIDSON, MG, PHOS, CMP, LIPID, URIC #### [facility] [address] [place] [address] Dr. Sarmad Patino RBC 5.40 106/ul Normal 4.20-5.40 [facility] Comment on above: Performed By: #### D DAVIDSON, MG, PHOS, CMP, LIPID, URIC #### [facility] [address] [address] [address] Sarmad Patino WBC 8.4 103/ul Normal 4.0-11.0 [facility] Comment on above: Performed By: #### D DAVIDSON, MG, PHOS, CMP, LIPID, URIC #### [facility] [address] [address] [address] Sarmad Patino LIPID PROFILEon 10-08-2021 CHOL-HDL RATIO NORM SEE BELOW Normal [facility] Comment on above: Result Comment: 3.3 - 4.4 LOW RISK 4.4 - 7.1 AVERAGE RISK 7.1 - 11.0 MODERATE RISK >11.0 HIGH RISK Performed By: #### D DAVIDSON, MG, PHOS, CMP, LIPID, URIC #### [facility] [address] [address] [address] Sarmad Patino Cholesterol [Mass/Vol] 155 mg/dL Normal <=200 [facility] Comment on above: Performed By: #### D DAVIDSON, MG, PHOS, CMP, LIPID, URIC #### [facility] [address] [address] [address] Sarmad Patino Cholesterol in HDL [Mass/Vol] 49 mg/dL Normal 40-60 [facility] Comment on above: Performed By: #### D DAVIDSON, MG, PHOS, CMP, LIPID, URIC #### [facility] [address] [address] [address] Saramd Patino Cholesterol in LDL [Mass/Vol] 73.8 mg/dL Normal [facility] Comment on above: Performed By: #### D DAVIDSON, MG, PHOS, CMP, LIPID, URIC #### [facility] [address] [address] [address] Sarmad Patino Cholesterol.total/C holesterol in HDL [Mass ratio] 3.2 {ratio} Normal [facility] Comment on above: Performed By: #### D DAVIDSON, MG, PHOS, CMP, LIPID, URIC #### [facility] [address] [address] [address] Sarmad Patino HDL NORMAL > or = 60 mg/dl - LO W CARDIOVASCULAR RISK <40 mg/dl - HIGH CARDIOVASCULAR RISK Normal [facility] Comment on above: Performed By: #### D DAVIDSON, MG, PHOS, CMP, LIPID, URIC #### [facility] [address] [address] [address] Sarmad Patino LDL CALC NORMAL SEE BELOW Normal [facility] Comment on above: Result Comment: <100 mg/dl OPTIMAL 100 - 129 mg/dl NEAR OR ABOVE OPTIMAL 130 - 159 mg/dl BORDERLINE HIGH 160 - 189 mg/dl HIGH >190 mg/dl VERY HIGH Performed By: #### D DAVIDSON, MG, PHOS, CMP, LIPID, URIC #### [facility] [address] [address] [address] Sarmad Patino Triglyceride [Mass/Vol] 161 mg/dL Critically high <=150 [facility] Comment on above: Performed By: #### D DAVIDSON, MG, PHOS, CMP, LIPID, URIC #### [facility] [address] [address] [address] Sarmad Patino VLDL CALC 32.2 mg/dL Normal [facility] Comment on above: Performed By: #### D DAVIDSON, MG, PHOS, CMP, LIPID, URIC #### [facility] [address] [address] [address] Sarmad Patino MAGNESIUMon 10-08-2021 Magnesium [Mass/Vol] 1.6 mg/dL Critically low 1.8-2.4 [facility] Comment on above: Performed By: #### U MAXI, LIPID, MG, CMP, DBIL, PHOS #### [facility] [address] [address] [address] Sarmad Patino PHOSPHORUSon 10-08-2021 Phosphate [Mass/Vol] 3.5 mg/dL Normal 2.6-4.7 [facility] Comment on above: Performed By: #### U MAXI, LIPID, MG, CMP, DBIL, PHOS #### [facility] [address] [address] [address] Sarmad Patino PROF 14(COMP METB)on 022 Albumin [Mass/Vol] 3.6 g/dL Normal 3.4-5.0 [facility] Comment on above: Performed By: #### D DAVIDSON, MG, PHOS, CMP, LIPID, URIC #### [facility] [address] [place] [address] Dr. Sarmad Patino Albumin/Globulin [Mass ratio] 0.9 {ratio} Normal [facility] Comment on above: Performed By: #### D DAVIDSON, MG, PHOS, CMP, LIPID, URIC #### [facility] [address] [place] [address] Dr. Sarmad Patino ALP [Catalytic activity/Vol] 150 U/L Critically high 46-116 [facility] Comment on above: Performed By: #### D DAVIDSON, MG, PHOS, CMP, LIPID, URIC #### [facility] [address] [place] [address] Dr. Sarmad Patino ALT [Catalytic activity/Vol] 21 U/L Normal 14-59 [facility] Comment on above: Performed By: #### D DAVIDSON, MG, PHOS, CMP, LIPID, URIC #### [facility] [address] [place] [address] Dr. Sarmad Patino Anion gap [Moles/Vol] 14.0 mmol/L Normal [facility] Comment on above: Performed By: #### D DAVIDSON, MG, PHOS, CMP, LIPID, URIC #### [facility] [address] [place] [address] Dr. Sarmad Patino AST [Catalytic activity/Vol] 13 U/L Critically low 15-37 [facility] Comment on above: Performed By: #### D DAVIDSON, MG, PHOS, CMP, LIPID, URIC #### [facility] [address] [place] [address] Dr. Sarmad Patino Bilirubin [Mass/Vol] 0.5 mg/dL Normal 0.2-1.0 [facility] Comment on above: Performed By: #### D DAVIDSON, MG, PHOS, CMP, LIPID, URIC #### [facility] [address] [place] [address] Dr. Sarmad Patino Calcium [Mass/Vol] 9.8 mg/dL Normal 8.5-10.1 [facility] Comment on above: Performed By: #### D DAVIDSON, MG, PHOS, CMP, LIPID, URIC #### [facility] [address] [address] [address] Sarmad Patino Chloride [Moles/Vol] 105 mmol/L Normal 98-107 [facility] Comment on above: Performed By: #### D DAVIDSON, MG, PHOS, CMP, LIPID, URIC #### [facility] [address] [address] [address] Sarmad Patino CO2 [Moles/Vol] 25.9 mmol/L Normal 21.0-32.0 [facility] Comment on above: Performed By: #### D DAVIDSON, MG, PHOS, CMP, LIPID, URIC #### [facility] [address] [address] [address] Sarmad Patino Creatinine [Mass/Vol] 0.81 mg/dL Normal 0.55-1.02 [facility] Comment on above: Performed By: #### D DAVIDSON, MG, PHOS, CMP, LIPID, URIC #### [facility] [address] [address] [address] Sarmad Patino EGFR-AF TANZANIAN >60 Normal >=60 [facility] Comment on above: Performed By: #### D DAVIDSON, MG, PHOS, CMP, LIPID, URIC #### [facility] [address] [address] [address] Sarmad Patino EGFR-NON AF TANZANIAN >60 Normal >=60 [facility] Comment on above: Performed By: #### D DAVIDSON, MG, PHOS, CMP, LIPID, URIC #### [facility] [address] [address] [address] Sarmad Patino Globulin (S) [Mass/Vol] 3.8 g/dL Normal [facility] Comment on above: Performed By: #### D DAVIDSON, MG, PHOS, CMP, LIPID, URIC #### [facility] [address] [address] [address] Sarmad Patino Glucose [Mass/Vol] 101 mg/dL Normal 74-106 [facility] Comment on above: Performed By: #### D DAVIDSON, MG, PHOS, CMP, LIPID, URIC #### [facility] [address] [address] [address] Sarmad Patino Potassium [Moles/Vol] 3.9 mmol/L Normal 3.5-5.1 [facility] Comment on above: Performed By: #### D DAVIDSON, MG, PHOS, CMP, LIPID, URIC #### [facility] [address] [address] [address] Sarmad Patino Protein [Mass/Vol] 7.4 g/dL Normal 6.4-8.2 [facility] Comment on above: Performed By: #### D DAVIDSON, MG, PHOS, CMP, LIPID, URIC #### [facility] [address] [place] [address] Dr. Sarmad Patino Sodium [Moles/Vol] 141 mmol/L Normal 136-145 [facility] Comment on above: Performed By: #### D DAVIDSON, MG, PHOS, CMP, LIPID, URIC #### [facility] [address] [place] [address] Dr. Sarmad Patino Urea nitrogen [Mass/Vol] 18.0 mg/dL Normal 7.0-18.0 [facility] Comment on above: Performed By: #### D DAVIDSON, MG, PHOS, CMP, LIPID, URIC #### [facility] [address] [place] [address] Dr. Sarmad Patino Urea nitrogen/Creatinine [Mass ratio] 22.2 mg/mg Normal [facility] Comment on above: Performed By: #### D DAVIDSON, MG, PHOS, CMP, LIPID, URIC #### [facility] [address] [place] [address] Dr. Sarmad Patino URIC ACID SERUMon 10-08-2021 Urate [Mass/Vol] 4.7 mg/dL Normal 2.6-6.0 [facility] Comment on above: Performed By: #### D DAVIDSON, MG, PHOS, CMP, LIPID, URIC #### [facility] [address] [place] [address] Dr. Sarmad TRIVEDI, WHOLE BLOODon 06- 17-2022 EVEROLIMUS 8.0 ng/mL Normal 3.0-8.0 [facility] Comment on above: Result Comment: Perf ormed by LC-MS/MS technology. Performed By: #### U MAXI, LIPID, MG, CMP, DBIL, PHOS #### [facility] [address] [place] [address] Dr. Sarmad Patino FK506 (TACROLIMUS) WHOLE BLO ODon 09-14-2021 Tacrolimus (FK506), Blood 9.3 ng/mL Normal 2.0-20.0 [facility] Comment on above: Result Comment: Trou gh (immediately following transplant) 15.0 . Trough (steady state, 2 weeks or more after transplant): 3.0 - 8.0 . Performed by LC-MS/MS technology. Performed By: #### U MAXI, LIPID, MG, CMP, DBIL, PHOS #### [facility] [address] [place] [address] Dr. Sarmad Patino BK VIRUS PCR QUANTon 022 BKV DNA QUANT PCR PLASMA Negative Normal Negative [facility] Comment on above: Result Comment: No B K DNA detected. . The linear range of the assay is 22 - 100,000,000 IU/mL. Performed By: #### D DAVIDSON, MG, PHOS, CMP, LIPID, URIC #### [facility] [address] [place] [address] Dr. Sarmad Patino Log10 BKV DNA Plasma Normal [facility] Comment on above: Performed By: #### D DAVIDSON, MG, PHOS, CMP, LIPID, URIC #### [facility] [address] [place] [address] Dr. Sarmad Patino BILIRUBIN CONJUGATED (DIRECT )on 09-10-2021 BILI, CONJUGATED 0.1 mg/dL Normal 0.0-0.2 [facility] Comment on above: Performed By: #### D DAVIDSON, MG, PHOS, CMP, LIPID, URIC #### [facility] [address] [place] [address] Dr. Sarmad Patino CBC AUTO DIFFon 09-10-2021 BASO # 0.0 103/ul Normal 0.0-0.1 [facility] Comment on above: Performed By: #### D DAVIDSON, MG, PHOS, CMP, LIPID, URIC #### [facility] [address] [place] [address] Dr. Sarmad Patino Basophils/100 WBC (Bld) 0.1 % Critically low 0.2-2.0 [facility] Comment on above: Performed By: #### D DAVIDSON, MG, PHOS, CMP, LIPID, URIC #### [facility] [address] [place] [address] Dr. Sarmad Patino EO # 0.2 103/ul Normal 0.0-0.7 [facility] Comment on above: Performed By: #### D DAVIDSON, MG, PHOS, CMP, LIPID, URIC #### [facility] [address] [place] [address] Dr. Sarmad Patino Eosinophils/100 WBC (Bld) 2.3 % Normal 0.9-7.0 [facility] Comment on above: Performed By: #### D DAVIDSON, MG, PHOS, CMP, LIPID, URIC #### [facility] [address] [place] [address] Dr. Sarmad Patino Erythrocyte distribution width (RBC) [Ratio] 13.6 % Normal 11.0-15.0 [facility] Comment on above: Performed By: #### D DAVIDSON, MG, PHOS, CMP, LIPID, URIC #### [facility] [address] [place] [address] Dr. Sarmad Patino Hematocrit (Bld) [Volume fraction] 45.1 % Normal 36.0-48.0 [facility] Comment on above: Performed By: #### D DAVIDSON, MG, PHOS, CMP, LIPID, URIC #### [facility] [address] [place] [address] Dr. Sarmad Patino Hemoglobin (Bld) [Mass/Vol] 14.7 g/dL Normal 12.0-16.0 [facility] Comment on above: Performed By: #### D DAVIDSON, MG, PHOS, CMP, LIPID, URIC #### [facility] [address] [place] [address] Dr. Sarmad Patino IG # 0.03 10e3/ul Normal 0.00-0.03 [facility] Comment on above: Performed By: #### D DAVIDSON, MG, PHOS, CMP, LIPID, URIC #### [facility] [address] [place] [address] Dr. Sarmad Patino IG % 0.4 % Normal 0.0-0.5 [facility] Comment on above: Performed By: #### D DAVIDSON, MG, PHOS, CMP, LIPID, URIC #### [facility] [address] [place] [address] Dr. Sarmad Patino LYMPH # 1.3 103/ul Normal 1.2-3.8 [facility] Comment on above: Performed By: #### D DAVIDSON, MG, PHOS, CMP, LIPID, URIC #### [facility] [address] [place] [address] Dr. Sarmad Patino Lymphocytes/100 WBC (Bld) 18.9 % Critically low 20.5-60.0 [facility] Comment on above: Performed By: #### D DAVIDSON, MG, PHOS, CMP, LIPID, URIC #### [facility] [address] [place] [address] Dr. Sarmad Patino MANUAL DIFF REQ NO Normal [facility] Comment on above: Performed By: #### D DAVIDSON, MG, PHOS, CMP, LIPID, URIC #### [facility] [address] [place] [address] Dr. Sarmad Patino MCH (RBC) [Entitic mass] 29.0 pg Normal 26.7-34.0 [facility] Comment on above: Performed By: #### D DAVIDSON, MG, PHOS, CMP, LIPID, URIC #### [facility] [address] [place] [address] Dr. Sarmad Patino MCHC (RBC) [Mass/Vol] 32.6 g/dL Normal 29.9-35.2 [facility] Comment on above: Performed By: #### D DAVIDSON, MG, PHOS, CMP, LIPID, URIC #### [facility] [address] [place] [address] Dr. Sarmad Patino MCV (RBC) [Entitic vol] 89.0 fL Normal 81.0-99.0 [facility] Comment on above: Performed By: #### D DAVIDSON, MG, PHOS, CMP, LIPID, URIC #### [facility] [address] [place] [address] Dr. Sarmad Patino MONO # 0.8 103/ul Normal 0.3-0.8 [facility] Comment on above: Performed By: #### D DAVIDSON, MG, PHOS, CMP, LIPID, URIC #### [facility] [address] [place] [address] Dr. Sarmad Patino Monocytes/100 WBC (Bld) 11.9 % Normal 1.7-12.0 [facility] Comment on above: Performed By: #### D DAVIDSON, MG, PHOS, CMP, LIPID, URIC #### [facility] [address] [place] [address] Dr. Sarmad Patino NEUT # 4.6 103/ul Normal 1.4-6.5 [facility] Comment on above: Performed By: #### D DAVIDSON, MG, PHOS, CMP, LIPID, URIC #### [facility] [address] [place] [address] Dr. Sarmad Patino Neutrophils/100 WBC (Bld) 66.4 % Normal 43.0-75.0 [facility] Comment on above: Performed By: #### D DAVIDSON, MG, PHOS, CMP, LIPID, URIC #### [facility] [address] [place] [address] Dr. Sarmad Patino Platelet mean volume (Bld) [Entitic vol] 10.6 fL Normal 9.5-13.5 [facility] Comment on above: Performed By: #### D DAVIDSON, MG, PHOS, CMP, LIPID, URIC #### [facility] [address] [place] [address] Dr. Sarmad Patino PLT 233 103/ul Normal 150-450 [facility] Comment on above: Performed By: #### D DAVIDSON, MG, PHOS, CMP, LIPID, URIC #### [facility] [address] [place] [address] Dr. Sarmad Patino RBC 5.07 106/ul Normal 4.20-5.40 [facility] Comment on above: Performed By: #### D DAVIDSON, MG, PHOS, CMP, LIPID, URIC #### [facility] [address] [address] [address] Sarmad Patino WBC 6.9 103/ul Normal 4.0-11.0 [facility] Comment on above: Performed By: #### D DAVIDSON, MG, PHOS, CMP, LIPID, URIC #### [facility] [address] [address] [address] Sarmad Patino GLYCOHEMOGLOBIN A1Con 2021 ADA RECOMMENDATION SEE BELOW Normal [facility] Comment on above: Result Comment: ADA RECOMMENDED LIMIT 4.0 - 6.0 ADA THERAPEUTIC TARGET < 7.0 ACTION SUGGESTED > 7.0 Performed By: #### D DAVIDSON, MG, PHOS, CMP, LIPID, URIC #### [facility] [address] [place] [address] Dr. Sarmad Patino Glucose [Mass/Vol] 120 mg/dL Normal [facility] Comment on above: Performed By: #### D DAVIDSON, MG, PHOS, CMP, LIPID, URIC #### [facility] [address] [address] [address] Sarmad Patino HbA1c (Bld) [Mass fraction] 5.8 % Normal 4.5-6.2 [facility] Comment on above: Performed By: #### D DAVIDSON, MG, PHOS, CMP, LIPID, URIC #### [facility] [address] [place] [address] Dr. Sarmad Patino LIPID PROFILEon 09-10-2021 CHOL-HDL RATIO NORM SEE BELOW Normal [facility] Comment on above: Result Comment: 3.3 - 4.4 LOW RISK 4.4 - 7.1 AVERAGE RISK 7.1 - 11.0 MODERATE RISK >11.0 HIGH RISK Performed By: #### D DAVIDSON, MG, PHOS, CMP, LIPID, URIC #### [facility] [address] [place] [address] Dr. Sarmad Patino Cholesterol [Mass/Vol] 150 mg/dL Normal <=200 [facility] Comment on above: Performed By: #### D DAVIDSON, MG, PHOS, CMP, LIPID, URIC #### [facility] [address] [address] [address] Sarmad Patino Cholesterol in HDL [Mass/Vol] 47 mg/dL Normal 40-60 [facility] Comment on above: Performed By: #### D DAVIDSON, MG, PHOS, CMP, LIPID, URIC #### [facility] [address] [address] [address] Sarmad Patino Cholesterol in LDL [Mass/Vol] 78.4 mg/dL Normal [facility] Comment on above: Performed By: #### D DAVIDSON, MG, PHOS, CMP, LIPID, URIC #### [facility] [address] [place] [address] Dr. Sarmad Patino Cholesterol.total/C holesterol in HDL [Mass ratio] 3.2 {ratio} Normal [facility] Comment on above: Performed By: #### D DAVIDSON, MG, PHOS, CMP, LIPID, URIC #### [facility] [address] [address] [address] Sarmad Patino HDL NORMAL > or = 60 mg/dl - LO W CARDIOVASCULAR RISK <40 mg/dl - HIGH CARDIOVASCULAR RISK Normal [facility] Comment on above: Performed By: #### D DAVIDSON, MG, PHOS, CMP, LIPID, URIC #### [facility] [address] [address] [address] Sarmad Patino LDL CALC NORMAL SEE BELOW Normal [facility] Comment on above: Result Comment: <100 mg/dl OPTIMAL 100 - 129 mg/dl NEAR OR ABOVE OPTIMAL 130 - 159 mg/dl BORDERLINE HIGH 160 - 189 mg/dl HIGH >190 mg/dl VERY HIGH Performed By: #### D DAVIDSON, MG, PHOS, CMP, LIPID, URIC #### [facility] [address] [place] [address] Dr. Sarmad Patino Triglyceride [Mass/Vol] 123 mg/dL Normal <=150 [facility] Comment on above: Performed By: #### D DAVIDSON, MG, PHOS, CMP, LIPID, URIC #### [facility] [address] [address] [address] Sarmad Patino VLDL CALC 24.6 mg/dL Normal [facility] Comment on above: Performed By: #### D DAVIDSON, MG, PHOS, CMP, LIPID, URIC #### [facility] [address] [place] [address] Dr. Sarmad Patino MAGNESIUMon 09-10-2021 Magnesium [Mass/Vol] 1.5 mg/dL Critically low 1.8-2.4 [facility] Comment on above: Performed By: #### D DAVIDSON, MG, PHOS, CMP, LIPID, URIC #### [facility] [address] [place] [address] Dr. Sarmad Patino PHOSPHORUSon 09-10-2021 Phosphate [Mass/Vol] 3.8 mg/dL Normal 2.6-4.7 [facility] Comment on above: Performed By: #### D DAVIDSON, MG, PHOS, CMP, LIPID, URIC #### [facility] [address] [place] [address] Dr. Sarmad Patino PROF 14(COMP METB)on 022 Albumin [Mass/Vol] 3.4 g/dL Normal 3.4-5.0 [facility] Comment on above: Performed By: #### D DAVIDSON, MG, PHOS, CMP, LIPID, URIC #### [facility] [address] [place] [address] Dr. Sarmad Patino Albumin/Globulin [Mass ratio] 0.9 {ratio} Normal [facility] Comment on above: Performed By: #### D DAVIDSON, MG, PHOS, CMP, LIPID, URIC #### [facility] [address] [place] [address] Dr. Sarmad Patino ALP [Catalytic activity/Vol] 143 U/L Critically high 46-116 [facility] Comment on above: Performed By: #### D DAVIDSON, MG, PHOS, CMP, LIPID, URIC #### [facility] [address] [place] [address] Dr. Sarmad Patino ALT [Catalytic activity/Vol] 19 U/L Normal 14-59 [facility] Comment on above: Performed By: #### D DAVIDSON, MG, PHOS, CMP, LIPID, URIC #### [facility] [address] [place] [address] Dr. Sarmad Patino Anion gap [Moles/Vol] 13.4 mmol/L Normal [facility] Comment on above: Performed By: #### D DAVIDSON, MG, PHOS, CMP, LIPID, URIC #### [facility] [address] [place] [address] Dr. Sarmad Patino AST [Catalytic activity/Vol] 24 U/L Normal 15-37 [facility] Comment on above: Performed By: #### D DAVIDSON, MG, PHOS, CMP, LIPID, URIC #### [facility] [address] [place] [address] Dr. Sarmad Patino Bilirubin [Mass/Vol] 0.4 mg/dL Normal 0.2-1.0 [facility] Comment on above: Performed By: #### D DAVIDSON, MG, PHOS, CMP, LIPID, URIC #### [facility] [address] [place] [address] Dr. Sarmad Patino Calcium [Mass/Vol] 9.3 mg/dL Normal 8.5-10.1 [facility] Comment on above: Performed By: #### D DAVIDSON, MG, PHOS, CMP, LIPID, URIC #### [facility] [address] [place] [address] Dr. Sarmad Patino Chloride [Moles/Vol] 106 mmol/L Normal 98-107 [facility] Comment on above: Performed By: #### D DAVIDSON, MG, PHOS, CMP, LIPID, URIC #### [facility] [address] [place] [address] Dr. Sarmad Patino CO2 [Moles/Vol] 25.5 mmol/L Normal 21.0-32.0 The [facility] Comment on above: Performed By: #### D DAVIDSON, MG, PHOS, CMP, LIPID, URIC #### [facility] [address] [place] [address] Dr. Sarmad Patino Creatinine [Mass/Vol] 0.85 mg/dL Normal 0.55-1.02 [facility] Comment on above: Performed By: #### D DAVIDSON, MG, PHOS, CMP, LIPID, URIC #### [facility] [address] [address] [address] Sarmad Patino EGFR-AF TANZANIAN >60 Normal >=60 The [facility] Comment on above: Performed By: #### D DAVIDSON, MG, PHOS, CMP, LIPID, URIC #### [facility] [address] [address] [address] Sarmad Patino EGFR-NON AF TANZANIAN >60 Normal >=60 [facility] Comment on above: Performed By: #### D DAVIDSON, MG, PHOS, CMP, LIPID, URIC #### [facility] [address] [address] [address] Sarmad Patino Globulin (S) [Mass/Vol] 3.8 g/dL Normal [facility] Comment on above: Performed By: #### D DAVIDSON, MG, PHOS, CMP, LIPID, URIC #### [facility] [address] [address] [address] Sarmad Patino Glucose [Mass/Vol] 100 mg/dL Normal 74-106 [facility] Comment on above: Performed By: #### D DAVIDSON, MG, PHOS, CMP, LIPID, URIC #### [facility] [address] [address] [address] Sarmad Patino Potassium [Moles/Vol] 3.9 mmol/L Normal 3.5-5.1 [facility] Comment on above: Performed By: #### D DAVIDSON, MG, PHOS, CMP, LIPID, URIC #### [facility] [address] [address] [address] Sarmad Patino Protein [Mass/Vol] 7.2 g/dL Normal 6.4-8.2 [facility] Comment on above: Performed By: #### D DAVIDSON, MG, PHOS, CMP, LIPID, URIC #### [facility] [address] [address] [address] Sarmad Patino Sodium [Moles/Vol] 141 mmol/L Normal 136-145 [facility] Comment on above: Performed By: #### D DAVIDSON, MG, PHOS, CMP, LIPID, URIC #### [facility] [address] [address] [address] Sarmad Patino Urea nitrogen [Mass/Vol] 16.0 mg/dL Normal 7.0-18.0 [facility] Comment on above: Performed By: #### D DAVIDSON, MG, PHOS, CMP, LIPID, URIC #### [facility] [address] [address] [address] Sarmad Patino Urea nitrogen/Creatinine [Mass ratio] 18.8 mg/mg Normal [facility] Comment on above: Performed By: #### D DAVIDSON, MG, PHOS, CMP, LIPID, URIC #### [facility] [address] [address] [address] Sarmad Patino URIC ACID SERUMon 09-10-2021 Urate [Mass/Vol] 4.8 mg/dL Normal 2.6-6.0 [facility] Comment on above: Performed By: #### D DAVIDSON, MG, PHOS, CMP, LIPID, URIC #### [facility] [address] [address] [address] Sarmad Patino Urinalysis - AUTOMATEDon Appearance (U) cloudy [employer] Other Bilirubin Ql (U) Negative [employer] Other Color (U) pale yellow [employer] Other Glucose Ql (U) Negative [employer] Other Hemoglobin Ql (U) moderate [employer] Other Ketones Ql (U) Negative [employer] Other Leukocyte esterase Test strip Ql (U) moderate [employer] Other Nitrite Ql (U) Negative [employer] Other pH (U) 7.0 [pH] [employer] Other Protein Ql (U) Negative [employer] Other Specific gravity (U) [Rel density] 1.010 [employer] Other Urobilinogen (U) [Mass/Vol] 0.2 mg/dL [employer] Other Urinalysis - AUTOMATED [employer] Other Urine Cultureon 08-14-2021 Urine Culture 100,000 [employer] Other Urine Culture <16 Susceptible [employer] Other Urine Culture >16 Resistant [employer] Other Urine Culture <4 Susceptible [employer] Other Urine Culture <2 Susceptible [employer] Other Urine Culture <1 Susceptible [employer] Other Urine Culture <0.5 Susceptible [employer] Other Urine Culture <32 Susceptible [employer] Other Urine Culture <2/38 Susceptible [employer] Other Bacteria identified Cx Nom (U) Reason for Exam Dysuria Urine ORGANISM: Klebsiella pneumoniae (O:MARTHA) [place] Count 100,000 Aerobic SHYLA Charge (NUC86) --- [...] RESISTANT TO ALL B-LACTAM DRUGS. PERFORMED BY: [place] [address] PATHOLOGIST SERVICES HOST LOVELY COLE M.D. Normal [facility] Comment on above: Performed By: #### C UU #### [facility] [address] [place] [address] *URINE CULTUREon 12-31-2017 Bacteria identified in Urine by Culture Clinical Report: (D) Specimen: URINE Collected: 12/31/2017 13:40 Status: Final Last Updated: 01/04/2018 12:38 ISO (Final) Diphtheroids >100,000 Cfu/Ml 2 Morphologies ISO (Final) Aerococcus urinae 50,000 - 100,000 Cfu/mL Result changed by [email or web address] on 01/04/2018 12:38. The previous result was: ISO (Prelim) Normal [facility] Comment on above: Performed By: #### 4 1000, 12567, 37537, 22623, 64029, 08981 ####[facility] CBC W/DIFFon 12-25-2017 ABS BASOPHILS 0.0 10*3/uL Normal 0.0-0.2 [facility] Comment on above: Performed By: #### 5 0103 ####[facility] ABS IMM GRANS 0.0 10*3/uL Normal 0.0-0.2 [facility] Comment on above: Performed By: #### 5 0103 ####[facility] [id number], [place] ABS NEUTROPHILS 5.0 10*3/uL Normal 1.6-7.6 [facility] Comment on above: Performed By: #### 5 0103 ####[facility].[address] Basophils Auto #/vol (Bld) 0.1 % Normal 0.0-1.0 [facility] Comment on above: Performed By: #### 5 0103 ####[facility].[address] Eosinophils Auto #/vol (Bld) 0.1 10*3/uL Normal 0.0-0.5 [facility] Comment on above: Performed By: #### 5 0103 ####[facility].[address] Eosinophils/100 WBC Auto (Bld) 1.6 % Normal 0.0-6.0 [facility] Comment on above: Performed By: #### 3 ####[facility] Erythrocyte distribution width Auto Ratio (RBC) 14.6 % Normal 11.5-15.0 [facility] Comment on above: Performed By: #### 3 ####[facility].[address] Hematocrit Auto Volume Fraction (Bld) 44.9 % Normal 36.0-45.0 The [facility] Comment on above: Performed By: #### 3 ####[facility]3000 [facility].[address] Hemoglobin mass conc (Bld) 14.9 g/dL Normal 12.0-15.0 [facility] Comment on above: Performed By: #### 3 ####[facility] IMMATURE GRANS 0.4 % Normal 0.0-1.0 [facility] Comment on above: Performed By: #### 5 0103 ####[facility] Lymphocytes Auto #/vol (Bld) 1.0 10*3/uL Low 1.2-4.0 [facility] Comment on above: Performed By: #### 5 0103 ####[facility] Lymphocytes/100 WBC Auto (Bld) 14.9 % Low 20.0-45.0 [facility] Comment on above: Performed By: #### 3 ####[address] MCH Auto Entitic mass (RBC) 28.8 pg Normal 27.0-33.0 [facility] Comment on above: Performed By: #### 3 ####[facility] MCHC Auto mass conc (RBC) 33.2 g/dL Normal 32.0-35.0 [facility] Comment on above: Performed By: #### 3 ####[facility] MCV Auto Entitic volume (RBC) 86.7 fL Normal 82.0-98.0 [facility] Comment on above: Performed By: #### 5 3 ####[facility] [place] [address] Monocytes Auto #/vol (Bld) 0.7 10*3/uL Normal 0.1-1.0 [facility] Comment on above: Performed By: #### 5 3 ####[facility] [place] [address], [place] MONOS 10.6 % Normal 5.0-12.0 [facility] Comment on above: Performed By: #### 5 0103 ####[facility] CHRI[address]HER.[address] Neutrophils/100 WBC Auto (Bld) 72.4 % High 40.0-72.0 The [facility] Comment on above: Performed By: #### 5 0103 ####[facility] Nucleated RBC/100 WBC Ratio (Bld) 0 % Normal 0-0 The [facility] Comment on above: Performed By: #### 5 0103 ####[facility] PLAT CNT 203 10*3/uL Normal 150-400 The [facility] Comment on above: Performed By: #### 5 0103 ####[facility] RBC Auto #/vol (Bld) 5.18 10*6/uL High 3.80-5.00 [facility] Comment on above: Performed By: #### 5 0103 ####[facility] WBC Auto #/vol (Bld) 6.90 10*3/uL Normal 4.00-10.60 [facility] Comment on above: Performed By: #### 5 0103 ####[facility] COMP METABOLIC PANELon 12-25 Albumin mass conc 4.3 g/dL Normal 3.5-5.7 [facility] Comment on above: Performed By: #### 4 1000, 03284, 74149, 83748, 98271, 07817 ####[facility] [place] [address], [facility] ALKALINE PHOSPH 118 IU/L High 34-104 [facility] Comment on above: Performed By: #### 4 1000, 10228, 13260, 94691, 62494, 82328 ####[facility] [place] [address], [facility] ALT enzyme act/vol 11 U/L Normal 7-[address] [facility] Comment on above: Performed By: #### 4 1000, 54284, 95347, 52252, 47464, 96191 ####[facility] [place] [address], [facility] AST enzyme act/vol 17 U/L Normal 13-[address] [facility] Comment on above: Performed By: #### 4 1000, 52368, 32214, 42722, 96310, 23116 ####[facility] [place] [address], [facility] Bilirubin mass conc 0.4 mg/dL Normal 0.3-1.0 The [facility] Comment on above: Performed By: #### 4 1000, 49348, 98741, 46066, 57997, 14671 ####[facility] [place] [address], [facility] Calcium mass conc 9.8 mg/dL Normal 8.6-10.3 [facility] Comment on above: Performed By: #### 4 1000, 22707, 75500, 91471, 10573, 92489 ####[facility] [place] [address], [facility] Chloride molar conc 104 mmol/L Normal 98-107 The [facility] Comment on above: Performed By: #### 4 1000, 46940, 25118, 95795, 69029, 18596 ####[facility] [place] [address], [facility] CO2 molar conc 27 mmol/L Normal 21-31 [facility] Comment on above: Performed By: #### 4 1000, 00803, 76741, 26597, 35694, 34269 ####[facility] [place] [address], [facility] Creatinine mass conc 0.76 mg/dL Normal 0.60-1.20 [facility] Comment on above: Performed By: #### 4 1000, 57647, 23605, 86680, 26538, 64914 ####[facility] [place] [address], [facility] GFR/1.73 sq M predicted among blacks MDRD vol rate/area (S/P/Bld) mL/min/{1.73_m2} Normal >60 The [facility] Comment on above: Performed By: #### 4 1000, 79591, 51014, 59732, 26045, 47197 ####[facility] [place] [address], [place] GFR/1.73 sq M predicted among non-blacks MDRD vol rate/area (S/P/Bld) mL/min/{1.73_m2} Normal >60 The [facility] Comment on above: Performed By: #### 4 1000, 57433, 09963, 65989, 10605, 50796 ####[facility] [place] [address], [place] Glucose mass conc 94 mg/dL Normal 70-100 [facility] Comment on above: Performed By: #### 4 1000, 12507, 63852, 48061, 34705, 29025 ####[facility] [place] [address], [place] Potassium molar conc 3.9 mmol/L Normal 3.5-5.1 [facility] Comment on above: Performed By: #### 4 1000, 06439, 74731, 96982, 09885, 75480 ####[facility] Protein mass conc 7.2 g/dL Normal 6.0-8.3 [facility] Comment on above: Performed By: #### 4 1000, 25519, 63302, 60683, 14671, 22239 ####[facility] Sodium molar conc 140 mmol/L Normal 136-145 [facility] Comment on above: Performed By: #### 4 1000, 22313, 04740, 68142, 72906, 84258 ####[facility] [facility].[address] Urea nitrogen mass conc 15 mg/dL Normal 7-25 The [facility] Comment on above: Performed By: #### 4 1000, 82880, 73560, 93772, 60343, 43368 ####[facility] DIRECT BILIon 12-25-2017 Bilirubin.direct mass conc 0.1 mg/dL Normal 0.0-0.2 The [facility] Comment on above: Performed By: #### 4 1000, 86738, 39368, 06910, 31739, 85761 ####[facility] [address] EVEROLIMUS [id number] 8 EVEROLIMUS 4.7 ng/mL Normal The [facility] Comment on above: Result Comment: Ther [...] the transplantcenter.Test developed and characteristics determined by [email or web address]. See Compliance Statement B: [email or web address] by [employer],[address] [place] [id number] now.[email or web address], Leonid Antonio MD - Lab. Director LIPID PROFILEon 12-25-2017 Cholesterol in HDL mass conc 51 mg/dL Normal 23-92 [facility] Comment on above: Result Comment: Slig ht variation in normal range could be due to gender and/or age.HDL CHOLESTEROL REFERENCE RANGE:20 years and older Cardiovascular Risk> or =60 mg/dL Mmuyspkkq85 TO 59 mg/dL Low Risk<40 mg/dL High Risk Performed By: #### 4 5506, 14884, 82144, 30438, 74688, 89195 ####[facility] Cholesterol in LDL mass conc 58 mg/dL Normal 0-130 The [facility] Comment on above: Result Comment: LDL IS A CALCULATIONLDL IS ONLY VALID IF THE TRIG IS LESS THAN 400. Performed By: #### 4 5506, 48720, 09590, 24109, 21783, 00822 ####[facility] [place] [address], [facility] Cholesterol mass conc 122 mg/dL Normal 120-200 The [facility] Comment on above: Result Comment: CHOL ESTEROL REFERENCE RANGE:20 YEARS AND OLDER CARDIOVASCULAR RISKLess than 200 mg/dl Low Gvnv154 to 239 mg/dl Borderline Yaob655 mg/dl and greater High Risk Performed By: #### 4 5506, 87907, 82762, 91917, 07175, 58832 ####[facility] [place] [address], [facility] Cholesterol.total/C holesterol in HDL mass ratio 2.4 {ratio} Normal .0-4.5 The [facility] Comment on above: Performed By: #### 4 5506, 09250, 92857, 77577, 24165, 41786 ####[facility] NON-HDL CHOLESTEROL 71 mg/dL Normal The [facility] Comment on above: Performed By: #### 4 5506, 14827, 96326, 98220, 89212, 22548 ####[facility] Triglyceride mass conc 65 mg/dL Normal 40-149 [facility] Comment on above: Result Comment: TRIG LYCERIDE REFERENCE RANGE:20 YEARS AND OLDER CARDIOVASCULAR RISKLESS THAN 150 mg/dl LOW [id number] TO 199 mg/dl BORDERLINE [id number] mg/dl AND GREATER HIGH RISK Performed By: #### 4 5506, 85251, 91352, 30574, 26151, 89622 ####[facility] [place] [address], [facility] VLDL CHOL 13 mg/dL Normal 0-40 The [facility] Comment on above: Performed By: #### 4 5506, 30415, 27687, 77315, 54551, 46359 ####[facility] [place] [address], [facility] MAGNESIUM BLOODon 12-25-2017 Magnesium mass conc 1.8 mg/dL Low 1.9-2.7 The [facility] Comment on above: Performed By: #### 4 1000, 33112, 45294, 56363, 72876, 19001 ####[facility] [place] [address], [facility] PHOSPHORUS BLOODon 8 Phosphate mass conc 3.4 mg/dL Normal 2.5-5.0 The [facility] Comment on above: Performed By: #### 4 5506, 80206, 11005, 99694, 25198, 30375 ####[facility] [facility].[address] TACROLIMUSon 12-25-2017 Tacrolimus mass conc (Bld) 6.4 ng/mL Normal 5.0-20.0 The [facility] Comment on above: Result Comment: The [employer] Tacrolimus assay is a delayed one-step immunoassayfor the quantitative determination of tacrolimus in human whole bloodusing the chemiluminescent microparticle immunoassay (CMIA) technologywith flexible assay protocols, referred to as Chemiflex. Performed By: #### 4 1000, 81022, 27349, 56432, 25859, 68454 ####[facility] [facility].[address] URIC ACID BLOODon 12-25-2017 Urate mass conc 4.7 mg/dL Normal 2.3-6.6 The [facility] Comment on above: Performed By: #### 4 5506, 66365, 48039, 23124, 05767, 77875 ####[facility]3000 [facility].[address] CBC W/DIFFon 10-30-2017 ABS BASOPHILS 0.0 10*3/uL Normal 0.0-0.2 [facility] Comment on above: Performed By: #### 4 6447, 98664 ####[facility]3000 [facility].[address] ABS IMM GRANS 0.0 10*3/uL Normal 0.0-0.2 [facility] Comment on above: Performed By: #### 4 6447, 35446 ####[facility] [facility].[address] ABS NEUTROPHILS 4.9 10*3/uL Normal 1.6-7.6 The [facility] Comment on above: Performed By: #### 4 4347, 79308 ####[facility] [facility].[address] Basophils Auto #/vol (Bld) 0.1 % Normal 0.0-1.0 The [facility] Comment on above: Performed By: #### Vic 8447, 80475 ####[facility] [facility], [facility].[address] Eosinophils Auto #/vol (Bld) 0.1 10*3/uL Normal 0.0-0.5 The [facility] Comment on above: Performed By: #### 4 3847, 06152 ####[address] Eosinophils/100 WBC Auto (Bld) 1.4 % Normal 0.0-6.0 The [facility] Comment on above: Performed By: #### 4 5147, 08980 ####[address] Erythrocyte distribution width Auto Ratio (RBC) 14.6 % Normal 11.5-15.0 The [facility] Comment on above: Performed By: #### 4 9547, 01979 ####[place] [address] [facility].[address] Hematocrit Auto Volume Fraction (Bld) 46.8 % High 36.0-45.0 The [facility] Comment on above: Performed By: #### 4 5544, 78770 ####[place] [address] [facility].[address] Hemoglobin mass conc (Bld) 15.1 g/dL High 12.0-15.0 The [facility] Comment on above: Performed By: #### 4 6698, 58828 ####[address] [place] [address], [place] IMMATURE GRANS 0.4 % Normal 0.0-1.0 [facility] Comment on above: Performed By: #### 4 0540, 83986 ####[address] Lymphocytes Auto #/vol (Bld) 1.2 10*3/uL Normal 1.2-4.0 The [facility] Comment on above: Performed By: #### 4 2905, 35210 ####[address] Lymphocytes/100 WBC Auto (Bld) 16.6 % Low 20.0-45.0 The [facility] Comment on above: Performed By: #### 7 3592, 19036 ####[address] MCH Auto Entitic mass (RBC) 29.0 pg Normal 27.0-33.0 The [facility] Comment on above: Performed By: #### 4 9576, 29355 ####[address] MCHC Auto mass conc (RBC) 32.3 g/dL Normal 32.0-35.0 The [facility] Comment on above: Performed By: #### 4 3268, 11525 ####[address] MCV Auto Entitic volume (RBC) 89.8 fL Normal 82.0-98.0 The [facility] Comment on above: Performed By: #### 4 5658, 76510 ####[address] Monocytes Auto #/vol (Bld) 0.8 10*3/uL Normal 0.1-1.0 The [facility] Comment on above: Performed By: #### 3 8782, 31074 ####[facility] [place] [address], [facility] MONOS 11.9 % Normal 5.0-12.0 The [facility] Comment on above: Performed By: #### 4 6447, 62311 ####[facility] [place] [address], [facility] Neutrophils/100 WBC Auto (Bld) 69.6 % Normal 40.0-72.0 The [facility] Comment on above: Performed By: #### 4 6447, 96044 ####[facility] [facility], [facility].[address] Nucleated RBC/100 WBC Ratio (Bld) 0 % Normal 0-0 The [facility] Comment on above: Performed By: #### 4 6447, 54154 ####[facility]3000 [facility].[address] PLAT CNT 200 10*3/uL Normal 150-400 The [facility] Comment on above: Performed By: #### 4 6447, 97324 ####[facility]3000 [facility].[address] RBC Auto #/vol (Bld) 5.21 10*6/uL High 3.80-5.00 The [facility] Comment on above: Performed By: #### 4 6447, 13085 ####[facility] [facility], [facility].[address] WBC Auto #/vol (Bld) 7.04 10*3/uL Normal 4.00-10.60 The [facility] Comment on above: Performed By: #### 4 6447, 82312 ####[facility] COMP METABOLIC PANELon 10-30 Albumin mass conc 4.1 g/dL Normal 3.5-5.7 The [facility] Comment on above: Performed By: #### 4 8447, 63093 ####[facility] [id number], [facility] ALKALINE PHOSPH 114 IU/L High 34-104 The [facility] Comment on above: Performed By: #### 4 0947, 66657 ####[facility] [id number], [place] ALT enzyme act/vol 16 U/L Normal 7-[address] [facility] Comment on above: Performed By: #### 4 6347, 23841 ####[facility] [facility], [place] [address], [place] AST enzyme act/vol 18 U/L Normal 13-[address] [facility] Comment on above: Performed By: #### 4 9041, 29480 ####[facility] [id number], [place] Bilirubin mass conc 0.4 mg/dL Normal 0.3-1.0 The [facility] Comment on above: Performed By: #### 4 0744, 82659 ####[facility] [place] [address], [place] Calcium mass conc 9.7 mg/dL Normal 8.6-10.3 The [facility] Comment on above: Performed By: #### 4 0132, 45218 ####[facility] [place] [address], [place] Chloride molar conc 105 mmol/L Normal 98-107 The [facility] Comment on above: Performed By: #### 4 8717, 13433 ####[facility] [place] [address], [place] CO2 molar conc 28 mmol/L Normal 21-31 [facility] Comment on above: Performed By: #### 4 4359, 35846 ####[facility] [place] [address], [facility] Creatinine mass conc 0.82 mg/dL Normal 0.60-1.20 The [facility] Comment on above: Performed By: #### 4 5751, 26911 ####[facility] [place] [address], [facility] GFR/1.73 sq M predicted among blacks MDRD vol rate/area (S/P/Bld) mL/min/{1.73_m2} Normal >60 The [facility] Comment on above: Performed By: #### 9 8839, 77053 ####[facility] [facility], [place] [address], [facility] GFR/1.73 sq M predicted among non-blacks MDRD vol rate/area (S/P/Bld) mL/min/{1.73_m2} Normal >60 The [facility] Comment on above: Performed By: #### 6 2370, 98046 ####[facility] [facility], [place] [address], [facility] Glucose mass conc 90 mg/dL Normal 70-100 The [facility] Comment on above: Performed By: #### 2 8744, 94689 ####[facility] [facility], [place] [address], [facility] Potassium molar conc 4.1 mmol/L Normal 3.5-5.1 The [facility] Comment on above: Performed By: #### 5 8578, 37663 ####[facility] [place] [address], [facility] Protein mass conc 6.9 g/dL Normal 6.0-8.3 The [facility] Comment on above: Performed By: #### 2 2686, 00235 ####[facility] [id number], [facility] Sodium molar conc 138 mmol/L Normal 136-145 The [facility] Comment on above: Performed By: #### 4 6447, 63888 ####[facility]3000 [facility].[address] Urea nitrogen mass conc 16 mg/dL Normal 7-25 The [facility] Comment on above: Performed By: #### 4 6447, 84318 ####[facility]3000 [facility].[address] DIRECT BILIon 10-30-2017 Bilirubin.direct mass conc 0.0 mg/dL Normal 0.0-0.2 The [facility] Comment on above: Performed By: #### 4 5506, 95521, 56899, 03534, 54416, 61254 ####[facility]3000 [facility].[address] EVEROLIMUS 13972cr 8 EVEROLIMUS 6.0 ng/mL Normal [facility] Comment on above: Result Comment: Ther [...] the transplantcenter.Test developed and characteristics determined by [employer]. See Compliance Statement B: [email or web address] by [employer],[address], [place] [address] kev.[email or web address], Leonid Antonio MD - Lab. Director LIPID PROFILEon 10-30-2017 Cholesterol in HDL mass conc 50 mg/dL Normal 23-92 The [facility] Comment on above: Result Comment: Slig ht variation in normal range could be due to gender and/or age.HDL CHOLESTEROL REFERENCE RANGE:20 years and older Cardiovascular Risk> or =60 mg/dL Klhzazwyo01 TO 59 mg/dL Low Risk<40 mg/dL High Risk Performed By: #### 4 5506, 55401, 65396, 33179, 98689, 66535 ####[facility] [place] [address], [place] Cholesterol in LDL mass conc 85 mg/dL Normal 0-130 The [facility] Comment on above: Result Comment: LDL IS A CALCULATIONLDL IS ONLY VALID IF THE TRIG IS LESS THAN 400. Performed By: #### 4 5506, 15439, 17873, 88443, 79464, 92977 ####[facility] [place] [address], [place] Cholesterol mass conc 152 mg/dL Normal 120-200 The [facility] Comment on above: Result Comment: CHOL ESTEROL REFERENCE RANGE:20 YEARS AND OLDER CARDIOVASCULAR RISKLess than 200 mg/dl Low Tevo368 to 239 mg/dl Borderline Krju874 mg/dl and greater High Risk Performed By: #### 4 5506, 76688, 25973, 63735, 37193, 31443 ####[facility] [place] [address], [place] Cholesterol.total/C holesterol in HDL mass ratio 3.0 {ratio} Normal .0-4.5 The [facility] Comment on above: Performed By: #### 4 5506, 95561, 07455, 48609, 53292, 32407 ####[facility] [place] [address], [place] NON-HDL CHOLESTEROL 102 mg/dL Normal The [facility] Comment on above: Performed By: #### 4 5506, 83975, 32608, 76551, 04841, 27179 ####[facility] Triglyceride mass conc 87 mg/dL Normal 40-149 The [facility] Comment on above: Result Comment: TRIG LYCERIDE REFERENCE RANGE:20 YEARS AND OLDER CARDIOVASCULAR RISKLESS THAN 150 mg/dl LOW [id number] TO 199 mg/dl BORDERLINE [id number] mg/dl AND GREATER HIGH RISK Performed By: #### 4 5506, 26858, 43225, 66332, 01955, 46799 ####[facility] [facility].[address] VLDL CHOL 17 mg/dL Normal 0-40 The [facility] Comment on above: Performed By: #### 4 5506, 18728, 39018, 81102, 41352, 63636 ####[facility] MAGNESIUM BLOODon 10-30-2017 Magnesium mass conc 1.9 mg/dL Normal 1.9-2.7 The [facility] Comment on above: Performed By: #### 4 5506, 35837, 77000, 68068, 81337, 01516 ####[facility] [facility], [place] [address], [facility] PHOSPHORUS BLOODon 8 Phosphate mass conc 3.7 mg/dL Normal 2.5-5.0 The [facility] Comment on above: Performed By: #### 4 5506, 56403, 53041, 30261, 32605, 70667 ####[facility] [place] [address], [facility] TACROLIMUSon 10-30-2017 Tacrolimus mass conc (Bld) 7.1 ng/mL Normal 5.0-20.0 The [facility] Comment on above: Result Comment: The [employer] Tacrolimus assay is a delayed one-step immunoassayfor the quantitative determination of tacrolimus in human whole bloodusing the chemiluminescent microparticle immunoassay (CMIA) technologywith flexible assay protocols, referred to as Chemiflex. Performed By: #### 9 9914 ####[facility] URIC ACID BLOODon 10-30-2017 Urate mass conc 4.6 mg/dL Normal 2.3-6.6 The [facility] Comment on above: Performed By: #### 4 6447, 28593 ####[place] [address] [address] CBC W/DIFFon 10-23-2017 ABS BASOPHILS 0.0 10*3/uL Normal 0.0-0.2 [facility] Comment on above: Performed By: #### 4 6847, 69330 ####[place] [address] ABS IMM GRANS 0.1 10*3/uL Normal 0.0-0.2 [facility] Comment on above: Performed By: #### 4 1947, 60894 ####[place] [address] ABS NEUTROPHILS 5.8 10*3/uL Normal 1.6-7.6 The [facility] Comment on above: Performed By: #### 4 6447, 42912 ####[facility] Basophils Auto #/vol (Bld) 0.2 % Normal 0.0-1.0 The [facility] Comment on above: Performed By: #### 4 6447, 50451 ####[place] [address] Eosinophils Auto #/vol (Bld) 0.1 10*3/uL Normal 0.0-0.5 The [facility] Comment on above: Performed By: #### 4 7940, 32938 ####[facility] [place] [address], [facility] Eosinophils/100 WBC Auto (Bld) 0.7 % Normal 0.0-6.0 The [facility] Comment on above: Performed By: #### 4 3348, 35754 ####[facility] Erythrocyte distribution width Auto Ratio (RBC) 14.6 % Normal 11.5-15.0 The [facility] Comment on above: Performed By: #### 4 8570, 26698 ####[facility] Hematocrit Auto Volume Fraction (Bld) 44.2 % Normal 36.0-45.0 The [facility] Comment on above: Performed By: #### 4 3522, 47801 ####[facility] Hemoglobin mass conc (Bld) 14.2 g/dL Normal 12.0-15.0 The [facility] Comment on above: Performed By: #### 4 6649, 52128 ####[facility] [place] [address], [facility] IMMATURE GRANS 1.4 % High 0.0-1.0 [facility] Comment on above: Performed By: #### 4 3528, 53515 ####[facility] [place] [address], [facility] Lymphocytes Auto #/vol (Bld) 2.1 10*3/uL Normal 1.2-4.0 The [facility] Comment on above: Performed By: #### 8 5037, 16707 ####[facility] [place] [address], [facility] Lymphocytes/100 WBC Auto (Bld) 22.5 % Normal 20.0-45.0 The [facility] Comment on above: Performed By: #### 4 8799, 59727 ####[facility]3000 [facility].[address] MCH Auto Entitic mass (RBC) 28.5 pg Normal 27.0-33.0 The [facility] Comment on above: Performed By: #### 4 2357, 15468 ####[facility].[address] MCHC Auto mass conc (RBC) 32.1 g/dL Normal 32.0-35.0 The [facility] Comment on above: Performed By: #### 4 8638, 47637 ####[facility]3000 [facility].[address] MCV Auto Entitic volume (RBC) 88.8 fL Normal 82.0-98.0 The [facility] Comment on above: Performed By: #### 9 3742, 38371 ####[facility]3000 [facility].[address] Monocytes Auto #/vol (Bld) 1.1 10*3/uL High 0.1-1.0 The [facility] Comment on above: Performed By: #### 4 0047, 10274 ####[facility]3000 [facility].[address] MONOS 12.0 % Normal 5.0-12.0 The [facility] Comment on above: Performed By: #### 4 3640, 87639 ####[facility]3000 [facility].[address] Neutrophils/100 WBC Auto (Bld) 63.2 % Normal 40.0-72.0 The [facility] Comment on above: Performed By: #### 8 3221, 85242 ####[facility].[address] Nucleated RBC/100 WBC Ratio (Bld) 0 % Normal 0-0 The [facility] Comment on above: Performed By: #### 4 0047, 97944 ####[facility] PLAT CNT 241 10*3/uL Normal 150-400 The [facility] Comment on above: Performed By: #### 4 6247, 39684 ####[facility].[address] RBC Auto #/vol (Bld) 4.98 10*6/uL Normal 3.80-5.00 [facility] Comment on above: Performed By: #### 4 0247, 95394 ####[place] [address] [facility].[address] WBC Auto #/vol (Bld) 9.14 10*3/uL Normal 4.00-10.60 [facility] Comment on above: Performed By: #### 4 2247, 65100 ####[place] [address] [facility].[address] COMP METABOLIC PANELon 10-23 Albumin mass conc 3.8 g/dL Normal 3.5-5.7 [facility] Comment on above: Performed By: #### 4 8047, 70549 ####[facility]3000 [facility].[address] ALKALINE PHOSPH 96 IU/L Normal 34-104 The [facility] Comment on above: Performed By: #### 4 7647, 41109 ####[facility]3000 [facility].[address] ALT enzyme act/vol 15 U/L Normal 7-52 [facility] Comment on above: Performed By: #### 4 3121, 78306 ####[facility] [place] [address], [facility] AST enzyme act/vol 13 U/L Normal 13-[address] [facility] Comment on above: Performed By: #### 4 8265, 77918 ####[facility] [place] [address], [facility] Bilirubin mass conc 0.4 mg/dL Normal 0.3-1.0 The [facility] Comment on above: Performed By: #### 4 6064, 39898 ####[facility] [facility], [place] [address], [facility] Calcium mass conc 9.2 mg/dL Normal 8.6-10.3 [facility] Comment on above: Performed By: #### 2 6311, 16131 ####[place] [address] [facility], [place] [address], [facility] Chloride molar conc 102 mmol/L Normal 98-107 The [facility] Comment on above: Performed By: #### 5 0253, 27169 ####[facility]3000 [facility] [address], [facility] CO2 molar conc 29 mmol/L Normal 21-31 [facility] Comment on above: Performed By: #### 7 3093, 89112 ####[facility]3000 [facility] [address], [facility] Creatinine mass conc 0.80 mg/dL Normal 0.60-1.20 The [facility] Comment on above: Performed By: #### 4 9521, 93477 ####[place] [address] [facility] [place] [address], [facility] GFR/1.73 sq M predicted among blacks MDRD vol rate/area (S/P/Bld) mL/min/{1.73_m2} Normal >60 The [facility] Comment on above: Performed By: #### 1 5751, 74135 ####[facility] [address], [facility] GFR/1.73 sq M predicted among non-blacks MDRD vol rate/area (S/P/Bld) mL/min/{1.73_m2} Normal >60 The [facility] Comment on above: Performed By: #### 4 4547, 90691 ####[facility], [place] [address], [facility] Glucose mass conc 85 mg/dL Normal 70-100 The [facility] Comment on above: Performed By: #### 4 7047, 32034 ####[address] [place] [address], [facility] Potassium molar conc 3.3 mmol/L Low 3.5-5.1 The [facility] Comment on above: Performed By: #### 4 5329, 26246 ####[place] [address] [facility] [place] [address], [facility] Protein mass conc 6.5 g/dL Normal 6.0-8.3 The [facility] Comment on above: Performed By: #### 4 3547, 01107 ####[address] [place] [address], [facility] Sodium molar conc 139 mmol/L Normal 136-145 The [facility] Comment on above: Performed By: #### 4 3320, 72480 ####[place] [address] [facility] [place] [address], [facility] Urea nitrogen mass conc 18 mg/dL Normal 7-25 The [facility] Comment on above: Performed By: #### 4 1170, 68462 ####[place] [address] [facility] [place] [address], [facility] DIRECT BILIon 10-23-2017 Bilirubin.direct mass conc 0.1 mg/dL Normal 0.0-0.2 The [facility] Comment on above: Performed By: #### 4 6447, 48017 ####[facility] EVEROLIMUS [id number] 8 EVEROLIMUS 4.0 ng/mL Normal [facility] Comment on above: Result Comment: Ther [...] the transplantcenter.Test developed and characteristics determined by [facility]. See Compliance Statement B: [email or web address]/CSPerformed by [employer],[address] [place] [id number] [email or web address], Leonid Antonio MD - Lab. Director LIPID PROFILEon 10-23-2017 Cholesterol in HDL mass conc 53 mg/dL Normal 23-92 The [facility] Comment on above: Result Comment: Slig ht variation in normal range could be due to gender and/or age.HDL CHOLESTEROL REFERENCE RANGE:20 years and older Cardiovascular Risk> or =60 mg/dL Clgyiyndx62 TO 59 mg/dL Low Risk<40 mg/dL High Risk Performed By: #### 4 6440, 48264 ####[facility] Cholesterol in LDL mass conc 68 mg/dL Normal 0-130 [facility] Comment on above: Result Comment: LDL IS A CALCULATIONLDL IS ONLY VALID IF THE TRIG IS LESS THAN 400. Performed By: #### 4 1825, 90616 ####[facility], [place] [address], [facility] Cholesterol mass conc 135 mg/dL Normal 120-200 The [facility] Comment on above: Result Comment: CHOL ESTEROL REFERENCE RANGE:20 YEARS AND OLDER CARDIOVASCULAR RISKLess than 200 mg/dl Low Gytu011 to 239 mg/dl Borderline Ftlg007 mg/dl and greater High Risk Performed By: #### 4 6447, 09480 ####[facility] [facility] [place] [address], [facility] Cholesterol.total/C holesterol in HDL mass ratio 2.5 {ratio} Normal .0-4.5 [facility] Comment on above: Performed By: #### 4 7569, 92996 ####[facility].[address] NON-HDL CHOLESTEROL 82 mg/dL Normal The [facility] Comment on above: Performed By: #### 4 6511, 78818 ####[facility] [facility] [place] [address], [facility] Triglyceride mass conc 72 mg/dL Normal 40-149 The [facility] Comment on above: Result Comment: TRIG LYCERIDE REFERENCE RANGE:20 YEARS AND OLDER CARDIOVASCULAR RISKLESS THAN 150 mg/dl LOW [id number] TO 199 mg/dl BORDERLINE BSVR872 mg/dl AND GREATER HIGH RISK Performed By: #### 4 8507, 48348 ####[facility] [facility] [place] [address], [facility] VLDL CHOL 14 mg/dL Normal 0-40 The [facility] Comment on above: Performed By: #### 4 6478, 68825 ####[facility] [facility] [place] [address], [facility] MAGNESIUM BLOODon 10-23-2017 Magnesium mass conc 1.8 mg/dL Low 1.9-2.7 The [facility] Comment on above: Performed By: #### 4 6447, 78906 ####[facility] PHOSPHORUS BLOODon 8 Phosphate mass conc 3.7 mg/dL Normal 2.5-5.0 The [facility] Comment on above: Performed By: #### 4 6447, 09575 ####[facility] TACROLIMUSon 10-23-2017 Tacrolimus mass conc (Bld) 2.6 ng/mL Low 5.0-20.0 The [facility] Comment on above: Result Comment: The [employer] Tacrolimus assay is a delayed one-step immunoassayfor the quantitative determination of tacrolimus in human whole bloodusing the chemiluminescent microparticle immunoassay (CMIA) technologywith flexible assay protocols, referred to as Chemiflex. Performed By: #### 4 6447, 13906 ####[place] [address] URIC ACID BLOODon 10-23-2017 Urate mass conc 4.3 mg/dL Normal 2.3-6.6 The [facility] Comment on above: Performed By: #### 4 6447, 63315 ####[place] [address] CBC W/DIFFon 09-25-2017 ABS BASOPHILS 0.0 10*3/uL Normal 0.0-0.2 [facility] Comment on above: Performed By: #### 4 1000, 45263, 40812, 21219, 61692, 17764 ####[facility] [place] [address] ABS IMM GRANS 0.0 10*3/uL Normal 0.0-0.2 [facility] Comment on above: Performed By: #### 4 1000, 51437, 26058, 50841, 98523, 44610 ####[facility] [facility] [address], [facility] ABS NEUTROPHILS 4.4 10*3/uL Normal 1.6-7.6 [facility] Comment on above: Performed By: #### 4 1000, 92701, 00454, 19399, 83007, 68425 ####[facility] Basophils Auto #/vol (Bld) 0.2 % Normal 0.0-1.0 The [facility] Comment on above: Performed By: #### 4 1000, 61060, 17601, 46551, 78542, 54918 ####[facility] [facility], [place] [address], [facility] Eosinophils Auto #/vol (Bld) 0.1 10*3/uL Normal 0.0-0.5 [facility] Comment on above: Performed By: #### 4 1000, 42321, 72335, 30205, 50441, 05670 ####[facility] [facility].[address] Eosinophils/100 WBC Auto (Bld) 2.2 % Normal 0.0-6.0 The [facility] Comment on above: Performed By: #### 4 1000, 90482, 97883, 17222, 50420, 20054 ####[facility] [facility], [facility].[address] Erythrocyte distribution width Auto Ratio (RBC) 14.0 % Normal 11.5-15.0 The [facility] Comment on above: Performed By: #### 4 1000, 01798, 30703, 38109, 16059, 68023 ####[facility] [facility], [facility].[address] Hematocrit Auto Volume Fraction (Bld) 44.8 % Normal 36.0-45.0 The [facility] Comment on above: Performed By: #### 4 1000, 34262, 88259, 18304, 91041, 43792 ####[facility] [facility].[address] Hemoglobin mass conc (Bld) 14.5 g/dL Normal 12.0-15.0 The [facility] Comment on above: Performed By: #### 4 1000, 27443, 10809, 14454, 23436, 60388 ####[facility] IMMATURE GRANS 0.3 % Normal 0.0-1.0 [facility] Comment on above: Performed By: #### 4 1000, 87955, 66924, 98815, 82111, 99823 ####[place] [address] [facility].[address] Lymphocytes Auto #/vol (Bld) 1.1 10*3/uL Low 1.2-4.0 The [facility] Comment on above: Performed By: #### 4 1000, 19300, 24326, 06872, 36109, 47049 ####[facility] [facility].[address] Lymphocytes/100 WBC Auto (Bld) 17.0 % Low 20.0-45.0 The [facility] Comment on above: Performed By: #### 4 1000, 18419, 14532, 92121, 98110, 42769 ####[facility]3000 [facility].[address] MCH Auto Entitic mass (RBC) 28.6 pg Normal 27.0-33.0 The [facility] Comment on above: Performed By: #### 4 1000, 43035, 22402, 27902, 34073, 31816 ####[facility]3000 [facility].[address] MCHC Auto mass conc (RBC) 32.4 g/dL Normal 32.0-35.0 The [facility] Comment on above: Performed By: #### 4 1000, 35343, 78536, 28297, 18044, 86912 ####[facility] MCV Auto Entitic volume (RBC) 88.4 fL Normal 82.0-98.0 The [facility] Comment on above: Performed By: #### 4 1000, 17581, 57866, 77864, 25953, 12646 ####[facility] Monocytes Auto #/vol (Bld) 0.7 10*3/uL Normal 0.1-1.0 The [facility] Comment on above: Performed By: #### 4 1000, 52034, 11957, 44491, 01319, 22899 ####[facility] MONOS 11.5 % Normal 5.0-12.0 The [facility] Comment on above: Performed By: #### 4 1000, 26964, 58653, 24432, 97187, 14022 ####[facility] Neutrophils/100 WBC Auto (Bld) 68.8 % Normal 40.0-72.0 The [facility] Comment on above: Performed By: #### 4 1000, 28009, 97936, 66747, 11220, 33519 ####[facility] Nucleated RBC/100 WBC Ratio (Bld) 0 % Normal 0-0 The [facility] Comment on above: Performed By: #### 4 1000, 52254, 48182, 88114, 06007, 05791 ####[facility] PLAT CNT 212 10*3/uL Normal 150-400 The [facility] Comment on above: Performed By: #### 4 1000, 25628, 82800, 51102, 18353, 44621 ####[facility] [place] [address], [facility] RBC Auto #/vol (Bld) 5.07 10*6/uL High 3.80-5.00 The [facility] Comment on above: Performed By: #### 4 1000, 86250, 25557, 52128, 95375, 16656 ####[facility] WBC Auto #/vol (Bld) 6.34 10*3/uL Normal 4.00-10.60 [facility] Comment on above: Performed By: #### 4 1000, 17253, 31221, 08061, 45848, 55167 ####[facility] COMP METABOLIC PANELon 09-25 Albumin mass conc 4.0 g/dL Normal 3.5-5.7 The [facility] Comment on above: Performed By: #### 4 6447, 06606 ####[facility] [facility], [facility].[address] ALKALINE PHOSPH 112 IU/L High 34-104 The [facility] Comment on above: Performed By: #### 4 6447, 53918 ####[facility] ALT enzyme act/vol 11 U/L Normal 7-[address] [facility] Comment on above: Performed By: #### 4 6447, 09299 ####[facility] [place] [address], [facility] AST enzyme act/vol 17 U/L Normal 13-39 [facility] Comment on above: Performed By: #### 4 6447, 85819 ####[facility] [place] [address], [place] Bilirubin mass conc 0.5 mg/dL Normal 0.3-1.0 The [facility] Comment on above: Performed By: #### 4 6447, 54083 ####[facility] [place] [address], [place] Calcium mass conc 9.6 mg/dL Normal 8.6-10.3 [facility] Comment on above: Performed By: #### 4 5789, 24737 ####[facility] [place] [address], [place] Chloride molar conc 104 mmol/L Normal 98-107 The [facility] Comment on above: Performed By: #### 3 7652, 77064 ####[facility] [place] [address], [place] CO2 molar conc 28 mmol/L Normal 21-31 [facility] Comment on above: Performed By: #### 7 3206, 27108 ####[facility] [place] [address], [place] Creatinine mass conc 0.83 mg/dL Normal 0.60-1.20 [facility] Comment on above: Performed By: #### 0 3576, 90817 ####[facility] [place] [address], [place] GFR/1.73 sq M predicted among blacks MDRD vol rate/area (S/P/Bld) mL/min/{1.73_m2} Normal >60 The [facility] Comment on above: Performed By: #### 4 2140, 69979 ####[facility] [place] [address], [place] GFR/1.73 sq M predicted among non-blacks MDRD vol rate/area (S/P/Bld) mL/min/{1.73_m2} Normal >60 The [facility] Comment on above: Performed By: #### 4 3393, 14078 ####[facility] [place] [address], [facility] Glucose mass conc 91 mg/dL Normal 70-100 The [facility] Comment on above: Performed By: #### 4 4034, 29033 ####[facility] [place] [address], [facility] Potassium molar conc 3.9 mmol/L Normal 3.5-5.1 The [facility] Comment on above: Performed By: #### 4 3492, 66237 ####[place] [address] Protein mass conc 7.0 g/dL Normal 6.0-8.3 The [facility] Comment on above: Performed By: #### 6 4677, 56340 ####[facility] Sodium molar conc 140 mmol/L Normal 136-145 The [facility] Comment on above: Performed By: #### 0 9013, 48539 ####[facility] [place] [address], [facility] Urea nitrogen mass conc 15 mg/dL Normal 7-25 The [facility] Comment on above: Performed By: #### 4 4740, 77532 ####[facility] DIRECT BILIon 09-25-2017 Bilirubin.direct mass conc 0.1 mg/dL Normal 0.0-0.2 The [facility] Comment on above: Performed By: #### 3 8131, 50836 ####[facility] [place] [address], [facility] EVEROLIMUS [id number] 8 EVEROLIMUS 5.1 ng/mL Normal The [facility] Comment on above: Result Comment: Ther [...] the transplantcenter.Test developed and characteristics determined by [facility]. See Compliance Statement B: [employer]CSPerformed by [employer],[address] [place] [id number] [email or web address], Leonid Antonio MD - Lab. Director LIPID PROFILEon 09-25-2017 Cholesterol in HDL mass conc 48 mg/dL Normal 23-92 The [facility] Comment on above: Result Comment: Slig ht variation in normal range could be due to gender and/or age.HDL CHOLESTEROL REFERENCE RANGE:20 years and older Cardiovascular Risk> or =60 mg/dL Qkyziorxt52 TO 59 mg/dL Low Risk<40 mg/dL High Risk Performed By: #### 4 2252, 03786 ####[facility] [place] [address], [facility] Cholesterol in LDL mass conc 69 mg/dL Normal 0-130 The [facility] Comment on above: Result Comment: LDL IS A CALCULATIONLDL IS ONLY VALID IF THE TRIG IS LESS THAN 400. Performed By: #### 4 2039, 91321 ####[facility] [place] [address], [facility] Cholesterol mass conc 138 mg/dL Normal 120-200 The [facility] Comment on above: Result Comment: CHOL ESTEROL REFERENCE RANGE:20 YEARS AND OLDER CARDIOVASCULAR RISKLess than 200 mg/dl Low Wxds446 to 239 mg/dl Borderline Dpft277 mg/dl and greater High Risk Performed By: #### 4 5908, 19127 ####[facility] [place] [address], [facility] Cholesterol.total/C holesterol in HDL mass ratio 2.9 {ratio} Normal .0-4.5 The [facility] Comment on above: Performed By: #### 4 2492, 89982 ####[facility] NON-HDL CHOLESTEROL 90 mg/dL Normal The [facility] Comment on above: Performed By: #### 4 1647, 91230 ####[facility] [facility], [place] [address], [facility] Triglyceride mass conc 103 mg/dL Normal 40-149 The [facility] Comment on above: Result Comment: TRIG LYCERIDE REFERENCE RANGE:20 YEARS AND OLDER CARDIOVASCULAR RISKLESS THAN 150 mg/dl LOW [id number] TO 199 mg/dl BORDERLINE FWOS330 mg/dl AND GREATER HIGH RISK Performed By: #### 4 6137, 84488 ####[facility] [place] [address], [facility] VLDL CHOL 21 mg/dL Normal 0-40 The [facility] Comment on above: Performed By: #### 4 6118, 35436 ####[facility] [place] [address], [facility] MAGNESIUM BLOODon 09-25-2017 Magnesium mass conc 1.8 mg/dL Low 1.9-2.7 The [facility] Comment on above: Performed By: #### 4 6447, 41222 ####[facility] [facility] [address], [facility] PHOSPHORUS BLOODon 8 Phosphate mass conc 3.4 mg/dL Normal 2.5-5.0 The [facility] Comment on above: Performed By: #### 4 6447, 59715 ####[address] TACROLIMUSon 09-25-2017 Tacrolimus mass conc (Bld) 3.6 ng/mL Low 5.0-20.0 The [facility] Comment on above: Result Comment: The [employer] Tacrolimus assay is a delayed one-step immunoassayfor the quantitative determination of tacrolimus in human whole bloodusing the chemiluminescent microparticle immunoassay (CMIA) technologywith flexible assay protocols, referred to as Chemiflex. Performed By: #### 4 6447, 82560 ####[address] URIC ACID BLOODon 09-25-2017 Urate mass conc 4.7 mg/dL Normal 2.3-6.6 The [facility] Comment on above: Performed By: #### 4 6447, 28942 ####[address] BK VIRUS QUANTITATION PCR BL OODon 08-26-2017 BKV QUANT PCR Not detected Normal The [facility] Comment on above: Result Comment: Meth od: BK virus was measured by quantitative polymerase chain reactionusing a TaqMan probe targeting the polyomavirus [employer]-1 gene.The lower limit of quantitation of the assay is 500 copies of BK genomeper milliliter of plasma or urine, and any detectable BK DNA below thatlevel is reported as: Detected, <500 copies/ml. Serial BK virusmeasurement can be used to monitor disease activity. (Reference:Kelsie vaughanl. J CLIN MICRO 2004; 42:3551-7242).This test was developed and its performance characteristics determinedby the [facility] Molecular Diagnostics [facility]. It has not been approvedby the [place] Food and Drug Administration. However, such approval is notrequired for clinical implementation, and test results have been shownto be clinically useful. This laboratory is CAP accredited and CLIAcertified to perform high complexity testing. Performed By: #### 4 1000, 78503, 88208, 75091, 99533, 49295 ####[facility] LOG 10 COPIES Not detected Normal The [facility] Comment on above: Performed By: #### 4 1000, 14231, 20607, 01575, 58941, 91399 ####[facility]3000 [facility].[address] CBC W/DIFFon 08-26-2017 ABS BASOPHILS 0.0 10*3/uL Normal 0.0-0.2 [facility] Comment on above: Performed By: #### 4 1000, 41665, 36431, 31451, 60076, 78415 ####[facility] ABS IMM GRANS 0.0 10*3/uL Normal 0.0-0.2 [facility] Comment on above: Performed By: #### 4 1000, 80566, 94669, 52231, 02496, 96228 ####[facility] ABS NEUTROPHILS 4.5 10*3/uL Normal 1.6-7.6 The [facility] Comment on above: Performed By: #### 4 1000, 96324, 54796, 20219, 84108, 95025 ####[facility]3000 [facility].[address] Basophils Auto #/vol (Bld) 0.2 % Normal 0.0-1.0 The [facility] Comment on above: Performed By: #### 4 1000, 50779, 32890, 04605, 81114, 72677 ####[facility] Eosinophils Auto #/vol (Bld) 0.2 10*3/uL Normal 0.0-0.5 The [facility] Comment on above: Performed By: #### 4 1000, 18747, 98475, 66838, 65949, 36049 ####[facility] Eosinophils/100 WBC Auto (Bld) 2.4 % Normal 0.0-6.0 The [facility] Comment on above: Performed By: #### 4 1000, 27960, 54321, 83498, 87568, 06062 ####[facility] [facility].[address] Erythrocyte distribution width Auto Ratio (RBC) 14.0 % Normal 11.5-15.0 The [facility] Comment on above: Performed By: #### 4 1000, 81000, 22152, 71402, 75047, 32068 ####[facility] [facility].[address] Hematocrit Auto Volume Fraction (Bld) 44.9 % Normal 36.0-45.0 The [facility] Comment on above: Performed By: #### 4 1000, 87543, 88834, 74901, 53979, 60533 ####[facility] [facility], [facility].[address] Hemoglobin mass conc (Bld) 14.9 g/dL Normal 12.0-15.0 The [facility] Comment on above: Performed By: #### 4 1000, 59037, 78449, 73651, 76273, 72642 ####[facility] IMMATURE GRANS 0.5 % Normal 0.0-1.0 The [facility] Comment on above: Performed By: #### 4 1000, 41632, 83913, 33342, 03889, 12558 ####[facility] Lymphocytes Auto #/vol (Bld) 1.0 10*3/uL Low 1.2-4.0 The [facility] Comment on above: Performed By: #### 4 1000, 74961, 78867, 16722, 76154, 09225 ####[facility] Lymphocytes/100 WBC Auto (Bld) 15.8 % Low 20.0-45.0 The [facility] Comment on above: Performed By: #### 4 1000, 10661, 02039, 53667, 08817, 12705 ####[facility]3000 [facility].[address] MCH Auto Entitic mass (RBC) 29.1 pg Normal 27.0-33.0 The [facility] Comment on above: Performed By: #### 4 1000, 22133, 41098, 50510, [address], [address] ####[facility].[address] MCHC Auto mass conc (RBC) 33.2 g/dL Normal 32.0-35.0 The [facility] Comment on above: Performed By: #### 4 1000, 04595, 06198, 87779, 54926, 83450 ####[facility].[address] MCV Auto Entitic volume (RBC) 87.7 fL Normal 82.0-98.0 The [facility] Comment on above: Performed By: #### 4 1000, 83620, 81664, 98149, 41706, 54873 ####[facility].[address] Monocytes Auto #/vol (Bld) 0.7 10*3/uL Normal 0.1-1.0 The [facility] Comment on above: Performed By: #### 4 1000, 73624, 29688, 63268, 85193, 88532 ####[facility] MONOS 10.6 % Normal 5.0-12.0 The [facility] Comment on above: Performed By: #### 4 1000, 84978, 23278, 40317, 89278, 39142 ####[facility] Neutrophils/100 WBC Auto (Bld) 70.5 % Normal 40.0-72.0 The [facility] Comment on above: Performed By: #### 4 1000, 03648, 87672, 89775, 55003, 84241 ####[facility] Nucleated RBC/100 WBC Ratio (Bld) 0 % Normal 0-0 The [facility] Comment on above: Performed By: #### 4 1000, 42015, 15292, 43759, 28761, 70584 ####[facility].[address] PLAT CNT 231 10*3/uL Normal 150-400 The [facility] Comment on above: Performed By: #### 4 1000, 05430, 97037, 82062, 03442, 26643 ####[facility].[address] RBC Auto #/vol (Bld) 5.12 10*6/uL High 3.80-5.00 The [facility] Comment on above: Performed By: #### 4 1000, 77993, 26176, 21477, 66590, 99602 ####[facility] [place] [address], [facility] WBC Auto #/vol (Bld) 6.32 10*3/uL Normal 4.00-10.60 The [facility] Comment on above: Performed By: #### 4 1000, 67248, 25328, 17507, 27272, 32680 ####[facility] COMP METABOLIC PANELon 08-26 Albumin mass conc 4.3 g/dL Normal 3.5-5.7 The [facility] Comment on above: Performed By: #### 4 1000, 31633, 68146, 87727, 67086, 81862 ####[facility] ALKALINE PHOSPH 125 IU/L High 34-104 The [facility] Comment on above: Performed By: #### 4 1000, 19705, 69155, 46618, 73890, 38045 ####[facility] ALT enzyme act/vol 17 U/L Normal 7-52 [facility] Comment on above: Performed By: #### 4 1000, 14207, 56540, 44715, 53052, 18248 ####[facility] [place] [address], [facility] AST enzyme act/vol 23 U/L Normal 13-[address] [facility] Comment on above: Performed By: #### 4 1000, 35747, 36353, 95487, 82671, 90204 ####[facility] [place] [address], [facility] Bilirubin mass conc 0.4 mg/dL Normal 0.3-1.0 The [facility] Comment on above: Performed By: #### 4 1000, 54147, 85954, 23850, 46215, 16466 ####[facility] [place] [address], [facility] Calcium mass conc 9.6 mg/dL Normal 8.6-10.3 The [facility] Comment on above: Performed By: #### 4 1000, 55500, 32739, 70506, 81080, 85962 ####[facility] [place] [address], [facility] Chloride molar conc 104 mmol/L Normal 98-107 The [facility] Comment on above: Performed By: #### 4 1000, 76142, 47444, 05122, 12661, 65565 ####[facility] [place] [address], [place] CO2 molar conc 27 mmol/L Normal 21-31 The [facility] Comment on above: Performed By: #### 4 1000, 04277, 48828, 57073, 95087, 49604 ####[facility] [place] [address], [place] Creatinine mass conc 0.77 mg/dL Normal 0.60-1.20 [facility] Comment on above: Performed By: #### 4 1000, 41040, 02376, 94180, 27226, 74786 ####[facility] [place] [address], [place] GFR/1.73 sq M predicted among blacks MDRD vol rate/area (S/P/Bld) mL/min/{1.73_m2} Normal >60 The [facility] Comment on above: Performed By: #### 4 1000, 44292, 39898, 59602, 18655, 47496 ####[facility] [place] [address], [place] GFR/1.73 sq M predicted among non-blacks MDRD vol rate/area (S/P/Bld) mL/min/{1.73_m2} Normal >60 The [facility] Comment on above: Performed By: #### 4 1000, 81602, 92216, 92428, 61996, 24528 ####[facility] [place] [address], [facility] Glucose mass conc 95 mg/dL Normal 70-100 The [facility] Comment on above: Performed By: #### 4 1000, 54224, 48207, 84667, 71983, 65661 ####[facility] [place] [address], [facility] Potassium molar conc 4.1 mmol/L Normal 3.5-5.1 The [facility] Comment on above: Performed By: #### 4 1000, 34303, 01437, 16583, 79940, 18173 ####[facility] [place] [address], [facility] Protein mass conc 7.3 g/dL Normal 6.0-8.3 The [facility] Comment on above: Performed By: #### 4 1000, 12816, 46216, 45992, 84814, 34778 ####[facility] [place] [address], [place] Sodium molar conc 139 mmol/L Normal 136-145 The [facility] Comment on above: Performed By: #### 4 1000, 27314, 72609, 83362, 42561, 45867 ####[facility] [place] [address], [facility] Urea nitrogen mass conc 12 mg/dL Normal 7-25 The [facility] Comment on above: Performed By: #### 4 1000, 61258, 49049, 30786, 07697, 91706 ####[facility] [place] [address], [facility] DIRECT BILIon 08-26-2017 Bilirubin.direct mass conc 0.1 mg/dL Normal 0.0-0.2 The [facility] Comment on above: Performed By: #### 4 1000, 49738, 52097, 20706, 57473, 23178 ####[facility] [place] [address], [place] EVEROLIMUS [id number] 8 EVEROLIMUS 5.6 ng/mL Normal [facility] Comment on above: Result Comment: Ther [...] the transplantcenter.Test developed and characteristics determined by [facility]. See Compliance Statement B: [email or web address]/CSPerformed by [employer],[address] [place] [id number] [email or web address], Leonid Antonio MD - Lab. Director HEMOGLOBIN A1Con 08-26-2017 Glucose mass conc 114 mg/dL Normal 70-126 The [facility] Comment on above: Performed By: #### 4 1000, 56753, 33198, 09588, 43802, 25100 ####[facility] [facility] [address], [facility] Hemoglobin A1c/Hemoglobin.tota l mass fraction (Bld) 5.6 % Normal 4.0-6.0 The [facility] Comment on above: Performed By: #### 4 1000, 88224, 07800, 68567, 38299, 28866 ####[facility] [facility] [address], [facility] LIPID PROFILEon 08-26-2017 Cholesterol in HDL mass conc 49 mg/dL Normal 23-92 [facility] Comment on above: Result Comment: Slig ht variation in normal range could be due to gender and/or age.HDL CHOLESTEROL REFERENCE RANGE:20 years and older Cardiovascular Risk> or =60 mg/dL Soapixhle49 TO 59 mg/dL Low Risk<40 mg/dL High Risk Performed By: #### 4 1000, 01744, 13161, 98924, 34398, 82327 ####[facility] [place] [address], [facility] Cholesterol in LDL mass conc 76 mg/dL Normal 0-130 The [facility] Comment on above: Result Comment: LDL IS A CALCULATIONLDL IS ONLY VALID IF THE TRIG IS LESS THAN 400. Performed By: #### 4 1000, 18556, 94447, 30171, 85207, 75010 ####[facility] [place] [address], [facility] Cholesterol mass conc 152 mg/dL Normal 120-200 The [facility] Comment on above: Result Comment: CHOL ESTEROL REFERENCE RANGE:20 YEARS AND OLDER CARDIOVASCULAR RISKLess than 200 mg/dl Low Zvar871 to 239 mg/dl Borderline Qlbz853 mg/dl and greater High Risk Performed By: #### 4 1000, 85411, 23497, 55197, 35823, 16163 ####[facility] [address], [facility] Cholesterol.total/C holesterol in HDL mass ratio 3.1 {ratio} Normal .0-4.5 The [facility] Comment on above: Performed By: #### 4 1000, 07262, 80081, 51731, 83809, 18896 ####[facility] [facility] [address], [facility] NON-HDL CHOLESTEROL 103 mg/dL Normal The [facility] Comment on above: Performed By: #### 4 1000, 73403, 10920, 24368, 81021, 03114 ####[facility] Triglyceride mass conc 133 mg/dL Normal 40-149 The [facility] Comment on above: Result Comment: TRIG LYCERIDE REFERENCE RANGE:20 YEARS AND OLDER CARDIOVASCULAR RISKLESS THAN 150 mg/dl LOW [id number] TO 199 mg/dl BORDERLINE [id number] mg/dl AND GREATER HIGH RISK Performed By: #### 4 1000, 01987, 13012, 42493, 25829, 95302 ####[facility] VLDL CHOL 27 mg/dL Normal 0-40 The [facility] Comment on above: Performed By: #### 4 1000, 83449, 94011, 13886, 57334, 64429 ####[facility] MAGNESIUM BLOODon 08-26-2017 Magnesium mass conc 1.9 mg/dL Normal 1.9-2.7 The [facility] Comment on above: Performed By: #### 4 1000, 98853, 97296, 30489, 78421, 16749 ####[facility].[address] PHOSPHORUS BLOODon 8 Phosphate mass conc 3.4 mg/dL Normal 2.5-5.0 The [facility] Comment on above: Performed By: #### 4 1000, 14348, 11978, 55277, 27440, 92321 ####[facility] TACROLIMUSon 08-26-2017 Tacrolimus mass conc (Bld) 4.3 ng/mL Low 5.0-20.0 The [facility] Comment on above: Result Comment: The [employer] Tacrolimus assay is a delayed one-step immunoassayfor the quantitative determination of tacrolimus in human whole bloodusing the chemiluminescent microparticle immunoassay (CMIA) technologywith flexible assay protocols, referred to as Chemiflex. Performed By: #### 4 1000, 89622, 51907, 52214, 82913, 74734 ####[facility].[address] URIC ACID BLOODon 08-26-2017 Urate mass conc 4.6 mg/dL Normal 2.3-6.6 The [facility] Comment on above: Performed By: #### 4 1000, 09723, 35554, 14757, 85904, 44015 ####[facility].[address] CBC W/DIFFon 07-23-2017 ABS BASOPHILS 0.0 10*3/uL Normal 0.0-0.2 The [facility] Comment on above: Performed By: #### 4 1000, 66818, 16408, 84444, 46538, 11263 ####[facility].[address] ABS IMM GRANS 0.0 10*3/uL Normal 0.0-0.2 The [facility] Comment on above: Performed By: #### 4 1000, 52444, 83288, 13938, 24529, 76083 ####[facility].[address] ABS NEUTROPHILS 4.4 10*3/uL Normal 1.6-7.6 The [facility] Comment on above: Performed By: #### 4 1000, 47488, 32647, 05119, 24105, 43127 ####[facility].[address] Basophils Auto #/vol (Bld) 0.2 % Normal 0.0-1.0 The [facility] Comment on above: Performed By: #### 4 1000, 93597, 97275, 56989, 73993, 64262 ####[facility].[address] Eosinophils Auto #/vol (Bld) 0.1 10*3/uL Normal 0.0-0.5 The [facility] Comment on above: Performed By: #### 4 1000, 66646, 72449, 37200, 58372, 95433 ####[facility] Eosinophils/100 WBC Auto (Bld) 2.1 % Normal 0.0-6.0 The [facility] Comment on above: Performed By: #### 4 1000, 06858, 82704, 96501, 33736, 51215 ####[facility] Erythrocyte distribution width Auto Ratio (RBC) 13.7 % Normal 11.5-15.0 The [facility] Comment on above: Performed By: #### 4 1000, 50265, 57021, 08672, 58105, 50788 ####[facility] Hematocrit Auto Volume Fraction (Bld) 44.4 % Normal 36.0-45.0 The [facility] Comment on above: Performed By: #### 4 1000, 46549, 99813, 80631, 28216, 76789 ####[facility] Hemoglobin mass conc (Bld) 14.7 g/dL Normal 12.0-15.0 The [facility] Comment on above: Performed By: #### 4 1000, 05766, 06582, 91150, 35764, 25471 ####[facility] IMMATURE GRANS 0.5 % Normal 0.0-1.0 The [facility] Comment on above: Performed By: #### 4 1000, 20394, 07676, 61333, 93458, 83638 ####[facility] Lymphocytes Auto #/vol (Bld) 1.0 10*3/uL Low 1.2-4.0 The [facility] Comment on above: Performed By: #### 4 1000, 83891, 48357, 85498, 09842, 88848 ####[place] [address] [facility].[address] Lymphocytes/100 WBC Auto (Bld) 15.5 % Low 20.0-45.0 The [facility] Comment on above: Performed By: #### 4 1000, 75276, 32793, 94542, 87318, 56439 ####[place] [address] MCH Auto Entitic mass (RBC) 28.9 pg Normal 27.0-33.0 The [facility] Comment on above: Performed By: #### 4 1000, 42516, 48741, 99953, 29589, 31623 ####[facility] MCHC Auto mass conc (RBC) 33.1 g/dL Normal 32.0-35.0 The [facility] Comment on above: Performed By: #### 4 1000, 05438, 61095, 47516, 84069, 89825 ####[place] [address] MCV Auto Entitic volume (RBC) 87.4 fL Normal 82.0-98.0 The [facility] Comment on above: Performed By: #### 4 1000, 51997, 35102, 88505, 16939, 75469 ####[facility] [place] [address] Monocytes Auto #/vol (Bld) 0.8 10*3/uL Normal 0.1-1.0 The [facility] Comment on above: Performed By: #### 4 1000, 96429, 44320, 64149, 45718, 42426 ####[facility] [place] [address], [facility] MONOS 12.3 % High 5.0-12.0 The [facility] Comment on above: Performed By: #### 4 1000, 36351, 25509, 92747, 01901, 87228 ####[facility] Neutrophils/100 WBC Auto (Bld) 69.4 % Normal 40.0-72.0 The [facility] Comment on above: Performed By: #### 4 1000, 66631, 43202, 63513, 64355, 12697 ####[facility] Nucleated RBC/100 WBC Ratio (Bld) 0 % Normal 0-0 The [facility] Comment on above: Performed By: #### 4 1000, 67541, 41664, 39099, 93374, 42339 ####[facility] PLAT CNT 218 10*3/uL Normal 150-400 The [facility] Comment on above: Performed By: #### 4 1000, 87582, 05783, 42331, 00398, 21059 ####[facility] RBC Auto #/vol (Bld) 5.08 10*6/uL High 3.80-5.00 The [facility] Comment on above: Performed By: #### 4 1000, 46133, 48429, 47286, 72486, 36985 ####[facility] [place] [address], [facility] WBC Auto #/vol (Bld) 6.3 10*3/uL Normal 4.0-10.6 The [facility] Comment on above: Performed By: #### 4 1000, 93481, 19257, 02812, 45733, 06805 ####[facility] COMP METABOLIC PANELon 07-23 Albumin mass conc 4.2 g/dL Normal 3.5-5.7 The [facility] Comment on above: Performed By: #### 4 1000, 59011, 92962, 59138, 95557, 87915 ####[facility] ALKALINE PHOSPH 113 IU/L High 34-104 The [facility] Comment on above: Performed By: #### 4 1000, 71726, 21090, 25462, 55889, 96953 ####[facility] ALT enzyme act/vol 23 U/L Normal 7-[address] [facility] Comment on above: Performed By: #### 4 1000, 91143, 64888, 00885, 71831, 44027 ####[facility] AST enzyme act/vol 25 U/L Normal 13-[address] [facility] Comment on above: Performed By: #### 4 1000, 10781, 06986, 39987, 31903, 23808 ####[facility] [place] [address], [facility] Bilirubin mass conc 0.6 mg/dL Normal 0.3-1.0 The [facility] Comment on above: Performed By: #### 4 1000, 62471, 85297, 98607, 90047, 63458 ####[facility] [place] [address], [facility] Calcium mass conc 9.6 mg/dL Normal 8.6-10.3 The [facility] Comment on above: Performed By: #### 4 1000, 26397, 53098, 37971, 85340, 59101 ####[facility] [place] [address], [place] Chloride molar conc 104 mmol/L Normal 98-107 The [facility] Comment on above: Performed By: #### 4 1000, 61136, 08049, 29706, 75039, 81066 ####[facility] [place] [address], [place] CO2 molar conc 25 mmol/L Normal 21-31 [facility] Comment on above: Performed By: #### 4 1000, 21843, 03809, 26732, 17902, 29632 ####[facility] [place] [address], [place] Creatinine mass conc 0.80 mg/dL Normal 0.60-1.20 [facility] Comment on above: Performed By: #### 4 1000, 82448, 12970, 17778, 56250, 79328 ####[facility] [place] [address], [place] GFR/1.73 sq M predicted among blacks MDRD vol rate/area (S/P/Bld) mL/min/{1.73_m2} Normal >60 The [facility] Comment on above: Performed By: #### 4 1000, 83058, 49845, 01388, 78982, 21824 ####[facility] [place] [address], [place] GFR/1.73 sq M predicted among non-blacks MDRD vol rate/area (S/P/Bld) mL/min/{1.73_m2} Normal >60 The [facility] Comment on above: Performed By: #### 4 1000, 58895, 65862, 80119, 08575, 25765 ####[facility] [place] [address], [place] Glucose mass conc 91 mg/dL Normal 70-100 The [facility] Comment on above: Performed By: #### 4 1000, 31465, 33039, 65889, 02156, 54951 ####[facility] [place] [address], [facility] Potassium molar conc 4.0 mmol/L Normal 3.5-5.1 The [facility] Comment on above: Performed By: #### 4 1000, 14073, 80665, 53565, 73129, 97118 ####[facility] [place] [address], [facility] Protein mass conc 6.8 g/dL Normal 6.0-8.3 The [facility] Comment on above: Performed By: #### 4 1000, 40219, 61301, 72149, 60096, 58550 ####[facility] [place] [address], [facility] Sodium molar conc 140 mmol/L Normal 136-145 The [facility] Comment on above: Performed By: #### 4 1000, 44283, 24463, 31400, 25098, 73717 ####[facility] [place] [address], [facility] Urea nitrogen mass conc 16 mg/dL Normal 7-25 The [facility] Comment on above: Performed By: #### 4 1000, 02758, 58129, 20168, 00507, 28831 ####[facility] [place] [address], [facility] DIRECT BILIon 07-23-2017 Bilirubin.direct mass conc 0.2 mg/dL Normal 0.0-0.2 The [facility] Comment on above: Performed By: #### 4 1000, 94977, 13286, 59127, 51232, 30598 ####[facility] [place] [address], [facility] EVEROLIMUS [id number] 8 EVEROLIMUS 5.3 ng/mL Normal The [facility] Comment on above: Result Comment: Ther [...] the transplantcenter.Test developed and characteristics determined by [email or web address]. See Compliance Statement B: [email or web address] by [employer],[address] [place] [id number] [email or web address], Leonid Antonio MD - Lab. Director LIPID PROFILEon 07-23-2017 Cholesterol in HDL mass conc 45 mg/dL Normal 23-92 [facility] Comment on above: Result Comment: Slig ht variation in normal range could be due to gender and/or age.HDL CHOLESTEROL REFERENCE RANGE:20 years and older Cardiovascular Risk> or =60 mg/dL Vdgbplizo65 TO 59 mg/dL Low Risk<40 mg/dL High Risk Performed By: #### 4 1000, 37866, 29963, 11898, 88420, 82632 ####[facility] Cholesterol in LDL mass conc 79 mg/dL Normal 0-130 The [facility] Comment on above: Result Comment: LDL IS A CALCULATIONLDL IS ONLY VALID IF THE TRIG IS LESS THAN 400. Performed By: #### 4 1000, 68233, 18114, 70603, 67851, 86318 ####[facility] [place] [address], [facility] Cholesterol mass conc 141 mg/dL Normal 120-200 The [facility] Comment on above: Result Comment: CHOL ESTEROL REFERENCE RANGE:20 YEARS AND OLDER CARDIOVASCULAR RISKLess than 200 mg/dl Low [id number] to 239 mg/dl Borderline Ehzj664 mg/dl and greater High Risk Performed By: #### 4 1000, 38829, 56184, 68398, 37020, 33150 ####[facility] [facility] [place] [address], [facility] Cholesterol.total/C holesterol in HDL mass ratio 3.1 {ratio} Normal .0-4.5 [facility] Comment on above: Performed By: #### 4 1000, 59559, 90049, 85030, 36989, 03082 ####[facility] [facility] [address], [facility] NON-HDL CHOLESTEROL 96 mg/dL Normal The [facility] Comment on above: Performed By: #### 4 1000, 50272, 18066, 92800, 27308, 23162 ####[facility] [facility] [place] [address], [facility] Triglyceride mass conc 83 mg/dL Normal 40-149 [facility] Comment on above: Result Comment: TRIG LYCERIDE REFERENCE RANGE:20 YEARS AND OLDER CARDIOVASCULAR RISKLESS THAN 150 mg/dl LOW [id number] TO 199 mg/dl BORDERLINE [id number] mg/dl AND GREATER HIGH RISK Performed By: #### 4 1000, 58193, 98564, 62544, 95373, 16255 ####[facility] [facility] [place] [address], [facility] VLDL CHOL 17 mg/dL Normal 0-40 The [facility] Comment on above: Performed By: #### 4 1000, 81709, 27850, 58919, 07148, 65113 ####[facility].[address] MAGNESIUM BLOODon 07-23-2017 Magnesium mass conc 2.0 mg/dL Normal 1.9-2.7 The [facility] Comment on above: Performed By: #### 4 1000, 03168, 69941, 34986, 36194, 70948 ####[facility].[address] PHOSPHORUS BLOODon 8 Phosphate mass conc 4.0 mg/dL Normal 2.5-5.0 The [facility] Comment on above: Performed By: #### 4 1000, 39689, 45838, 78450, 19333, 58001 ####[facility].[address] TACROLIMUSon 07-23-2017 Tacrolimus mass conc (Bld) 4.6 ng/mL Low 5.0-20.0 The [facility] Comment on above: Result Comment: The [employer] Tacrolimus assay is a delayed one-step immunoassayfor the quantitative determination of tacrolimus in human whole bloodusing the chemiluminescent microparticle immunoassay (CMIA) technologywith flexible assay protocols, referred to as Chemiflex. Performed By: #### 4 1000, 08963, 46402, 34606, 86325, 16146 ####[facility].[address] URIC ACID BLOODon 07-23-2017 Urate mass conc 4.7 mg/dL Normal 2.3-6.6 The [facility] Comment on above: Performed By: #### 4 1000, 93495, 54423, 48956, 86176, 05589 ####[facility].[address] CBC W/DIFFon 06-20-2017 ABS BASOPHILS 0.0 10*3/uL Normal 0.0-0.2 The [facility] Comment on above: Performed By: #### 4 1000, 77880, 10436, 11612, 35815, 91865 ####[facility].[address] ABS IMM GRANS 0.0 10*3/uL Normal 0.0-0.2 The [facility] Comment on above: Performed By: #### 4 1000, 43312, 68754, 56105, 02498, 10576 ####[facility].[address] ABS NEUTROPHILS 4.2 10*3/uL Normal 1.6-7.6 The [facility] Comment on above: Performed By: #### 4 1000, 67135, 57425, 07671, 76341, 03404 ####[facility].[address] Basophils Auto #/vol (Bld) 0.2 % Normal 0.0-1.0 The [facility] Comment on above: Performed By: #### 4 1000, 99365, 09447, 23646, 48451, 33646 ####[facility].[address] Eosinophils Auto #/vol (Bld) 0.1 10*3/uL Normal 0.0-0.5 The [facility] Comment on above: Performed By: #### 4 1000, 56309, 15180, 69355, 52114, 65414 ####[facility].[address] Eosinophils/100 WBC Auto (Bld) 1.5 % Normal 0.0-6.0 The [facility] Comment on above: Performed By: #### 4 1000, 74001, 78107, 63157, 64922, 74985 ####[facility].[address] Erythrocyte distribution width Auto Ratio (RBC) 13.4 % Normal 11.5-15.0 The [facility] Comment on above: Performed By: #### 4 1000, 98711, 91420, 86819, 56506, 96477 ####[facility].[address] Hematocrit Auto Volume Fraction (Bld) 44.9 % Normal 36.0-45.0 The [facility] Comment on above: Performed By: #### 4 1000, 13472, 49209, 37947, 86701, 66772 ####[facility].[address] Hemoglobin mass conc (Bld) 14.9 g/dL Normal 12.0-15.0 The [facility] Comment on above: Performed By: #### 4 1000, 24604, 81845, 99965, 06697, 87811 ####[facility].[address] IMMATURE GRANS 0.2 % Normal 0.0-1.0 The [facility] Comment on above: Performed By: #### 4 1000, 51800, 84922, 02261, 09026, 97960 ####[facility].[address] Lymphocytes Auto #/vol (Bld) 1.1 10*3/uL Low 1.2-4.0 The [facility] Comment on above: Performed By: #### 4 1000, 85595, 03575, 47609, 05313, 91706 ####[facility].[address] Lymphocytes/100 WBC Auto (Bld) 17.4 % Low 20.0-45.0 The [facility] Comment on above: Performed By: #### 4 1000, 34517, 74090, 18913, 52794, 57384 ####[facility] [place] [address], [place] MCH Auto Entitic mass (RBC) 29.2 pg Normal 27.0-33.0 The [facility] Comment on above: Performed By: #### 4 1000, 04624, 71144, 95591, 54057, 03875 ####[facility] MCHC Auto mass conc (RBC) 33.2 g/dL Normal 32.0-35.0 The [facility] Comment on above: Performed By: #### 4 1000, 75750, 87823, 39568, 54015, 09407 ####[facility] MCV Auto Entitic volume (RBC) 87.9 fL Normal 82.0-98.0 The [facility] Comment on above: Performed By: #### 4 1000, 21731, 11921, 73935, 63080, 52831 ####[facility] Monocytes Auto #/vol (Bld) 0.7 10*3/uL Normal 0.1-1.0 The [facility] Comment on above: Performed By: #### 4 1000, 65824, 32553, 01055, 24979, 20095 ####[facility] MONOS 11.3 % Normal 5.0-12.0 The [facility] Comment on above: Performed By: #### 4 1000, 35209, 68992, 91752, 53953, 36241 ####[facility] Neutrophils/100 WBC Auto (Bld) 69.4 % Normal 40.0-72.0 The [facility] Comment on above: Performed By: #### 4 1000, 67765, 93957, 12717, 52618, 36534 ####[facility] Nucleated RBC/100 WBC Ratio (Bld) 0 % Normal 0-0 The [facility] Comment on above: Performed By: #### 4 1000, 72336, 20578, 97381, 62235, 25234 ####[facility] PLAT CNT 198 10*3/uL Normal 150-400 The [facility] Comment on above: Performed By: #### 4 1000, 10881, 68263, 86957, 61567, 93297 ####[facility] RBC Auto #/vol (Bld) 5.11 10*6/uL High 3.80-5.00 [facility] Comment on above: Performed By: #### 4 1000, 85052, 42100, 50745, 17540, 51917 ####[facility] WBC Auto #/vol (Bld) 6.0 10*3/uL Normal 4.0-10.6 [facility] Comment on above: Performed By: #### 4 1000, 82539, 49212, 93469, 10515, 14520 ####[facility] COMP METABOLIC PANELon 06-20 Albumin mass conc 4.4 g/dL Normal 3.5-5.7 The [facility] Comment on above: Performed By: #### 4 1000, 76616, 77512, 34008, 05316, 67710 ####[facility] ALKALINE PHOSPH 133 IU/L High 34-104 The [facility] Comment on above: Performed By: #### 4 1000, 70861, 81129, 74182, 06038, 63064 ####[facility] [place] [address], [place] ALT enzyme act/vol 16 U/L Normal 7-[address] [facility] Comment on above: Performed By: #### 4 1000, 76304, 06151, 11995, 53412, 90176 ####[facility] [place] [address], [place] AST enzyme act/vol 21 U/L Normal 13-[address] [facility] Comment on above: Performed By: #### 4 1000, 30455, 28052, 53814, 11103, 56584 ####[facility] [place] [address], [facility] Bilirubin mass conc 0.8 mg/dL Normal 0.3-1.0 The [facility] Comment on above: Performed By: #### 4 1000, 84292, 55039, 44138, 97903, 65368 ####[facility] [place] [address], [place] Calcium mass conc 10.0 mg/dL Normal 8.6-10.3 The [facility] Comment on above: Performed By: #### 4 1000, 39569, 59509, 08006, 82180, 40751 ####[facility] [place] [address], [place] Chloride molar conc 106 mmol/L Normal 98-107 The [facility] Comment on above: Performed By: #### 4 1000, 96781, 26680, 26601, 28857, 81919 ####[facility] [place] [address], [place] CO2 molar conc 27 mmol/L Normal 21-31 [facility] Comment on above: Performed By: #### 4 1000, 69772, 15695, 33435, 12705, 05548 ####[facility] [place] [address], [facility] Creatinine mass conc 0.74 mg/dL Normal 0.60-1.20 The [facility] Comment on above: Performed By: #### 4 1000, 28729, 19504, 36417, 81664, 68804 ####[facility] [place] [address], [facility] GFR/1.73 sq M predicted among blacks MDRD vol rate/area (S/P/Bld) mL/min/{1.73_m2} Normal >60 The [facility] Comment on above: Performed By: #### 4 1000, 89678, 47297, 34682, 57511, 00732 ####[facility] [place] [address], [facility] GFR/1.73 sq M predicted among non-blacks MDRD vol rate/area (S/P/Bld) mL/min/{1.73_m2} Normal >60 The [facility] Comment on above: Performed By: #### 4 1000, 73149, 76401, 98636, 61300, 00489 ####[facility] [place] [address], [facility] Glucose mass conc 95 mg/dL Normal 70-100 The [facility] Comment on above: Performed By: #### 4 1000, 00824, 28909, 42832, 23841, 00047 ####[facility] [place] [address], [facility] Potassium molar conc 3.8 mmol/L Normal 3.5-5.1 The [facility] Comment on above: Performed By: #### 4 1000, 78517, 98800, 36778, 59123, 32707 ####[facility] [place] [address], [facility] Protein mass conc 7.3 g/dL Normal 6.0-8.3 The [facility] Comment on above: Performed By: #### 4 1000, 68108, 75908, 55508, 07134, 14763 ####[facility] Sodium molar conc 137 mmol/L Normal 136-145 The [facility] Comment on above: Performed By: #### 4 1000, 88947, 53901, 44911, 98903, 80356 ####[facility] Urea nitrogen mass conc 16 mg/dL Normal 7-25 The [facility] Comment on above: Performed By: #### 4 1000, 20573, 06004, 24408, 01234, 42471 ####[facility] DIRECT BILIon 06-20-2017 Bilirubin.direct mass conc 0.1 mg/dL Normal 0.0-0.2 [facility] Comment on above: Performed By: #### 4 1000, 42341, 36059, 90893, 89156, 08422 ####[facility] EVEROLIMUS 62289ok 8 EVEROLIMUS 6.7 ng/mL Normal [facility] Comment on above: Result Comment: Ther [...] the transplantcenter.Test developed and characteristics determined by [facility]. See Compliance Statement B: [email or web address] by [employer],[address] [place] [address] [email or web address], Leonid Antonio MD - Lab. Director LIPID PROFILEon 06-20-2017 Cholesterol in HDL mass conc 45 mg/dL Normal 23-92 The [facility] Comment on above: Result Comment: Slig ht variation in normal range could be due to gender and/or age.HDL CHOLESTEROL REFERENCE RANGE:20 years and older Cardiovascular Risk> or =60 mg/dL [id number] TO 59 mg/dL Low Risk<40 mg/dL High Risk Performed By: #### 4 1000, 79009, 13169, 37116, 08122, 14865 ####[facility] [place] [address], [place] Cholesterol in LDL mass conc 58 mg/dL Normal 0-130 The [facility] Comment on above: Result Comment: LDL IS A CALCULATIONLDL IS ONLY VALID IF THE TRIG IS LESS THAN 400. Performed By: #### 4 1000, 35604, 85593, 54978, 88304, 88923 ####[facility] [place] [address], [place] Cholesterol mass conc 126 mg/dL Normal 120-200 The [facility] Comment on above: Result Comment: CHOL ESTEROL REFERENCE RANGE:20 YEARS AND OLDER CARDIOVASCULAR RISKLess than 200 mg/dl Low [id number] to 239 mg/dl Borderline Mcqm535 mg/dl and greater High Risk Performed By: #### 4 1000, 31814, 85549, 53195, 69521, 79018 ####[facility] [place] [address], [place] Cholesterol.total/C holesterol in HDL mass ratio 2.8 {ratio} Normal .0-4.5 The [facility] Comment on above: Performed By: #### 4 1000, 05620, 69588, 01128, 26241, 36629 ####[facility] NON-HDL CHOLESTEROL 81 mg/dL Normal The [facility] Comment on above: Performed By: #### 4 1000, 99080, 42817, 72885, 53657, 09880 ####[facility] Triglyceride mass conc 113 mg/dL Normal 40-149 The [facility] Comment on above: Result Comment: TRIG LYCERIDE REFERENCE RANGE:20 YEARS AND OLDER CARDIOVASCULAR RISKLESS THAN 150 mg/dl LOW [id number] TO 199 mg/dl BORDERLINE [id number] mg/dl AND GREATER HIGH RISK Performed By: #### 4 1000, 48034, 55395, 43228, 19265, 59569 ####[facility] VLDL CHOL 23 mg/dL Normal 0-40 The [facility] Comment on above: Performed By: #### 4 1000, 16833, 52068, 49741, 08418, 32329 ####[facility] MAGNESIUM BLOODon 06-20-2017 Magnesium mass conc 1.9 mg/dL Normal 1.9-2.7 The [facility] Comment on above: Performed By: #### 4 1000, 41298, 55454, 10694, 88971, 71217 ####[facility] [place] [address], [facility] PHOSPHORUS BLOODon 8 Phosphate mass conc 3.1 mg/dL Normal 2.5-5.0 The [facility] Comment on above: Performed By: #### 4 1000, 10457, 26082, 43263, 82458, 85639 ####[facility] TACROLIMUSon 06-20-2017 Tacrolimus mass conc (Bld) 4.2 ng/mL Low 5.0-20.0 The [facility] Comment on above: Result Comment: The [employer] Tacrolimus assay is a delayed one-step immunoassayfor the quantitative determination of tacrolimus in human whole bloodusing the chemiluminescent microparticle immunoassay (CMIA) technologywith flexible assay protocols, referred to as Chemiflex. Performed By: #### 4 1000, 83629, 72188, 61009, 43855, 02345 ####[place] [address] URIC ACID BLOODon 06-20-2017 Urate mass conc 4.3 mg/dL Normal 2.3-6.6 The [facility] Comment on above: Performed By: #### 4 1000, 44348, 47539, 30605, 47636, 47410 ####[address] BK VIRUS QUANTITATION PCR BL OODon 05-27-2017 BKV QUANT PCR Not detected Normal The [facility] Comment on above: Result Comment: Meth od: BK virus was measured by quantitative polymerase chain reactionusing a TaqMan probe targeting the polyomavirus BK [employer]-1 gene.The lower limit of quantitation of the assay is 500 copies of BK genomeper milliliter of plasma or urine, and any detectable BK DNA below thatlevel is reported as: Detected, <500 copies/ml. Serial BK virusmeasurement can be used to monitor disease activity. (Reference:Kelsie vaughanl. J CLIN MICRO 2004; 42:3389-0330).This test was developed and its performance characteristics determinedby the [facility]. It has not been approvedby the [place] Food and Drug Administration. However, such approval is notrequired for clinical implementation, and test results have been shownto be clinically useful. This laboratory is CAP accredited and CLIAcertified to perform high complexity testing. Performed By: #### 4 1000, 41133, 70579, 64724, 94789, 79685 ####[facility] [address] LOG 10 COPIES Not detected Normal The [facility] Comment on above: Performed By: #### 4 1000, 38417, 28057, 00314, 62331, 63375 ####[facility] [address] CBC W/DIFFon 05-27-2017 ABS BASOPHILS 0.0 10*3/uL Normal 0.0-0.2 [facility] Comment on above: Performed By: #### 4 1000, 30530, 66289, 41942, 76403, 24452 ####[facility] [address] ABS IMM GRANS 0.0 10*3/uL Normal 0.0-0.2 [facility] Comment on above: Performed By: #### 4 1000, 80664, 96768, 30824, 24569, 01738 ####[facility] [address] ABS NEUTROPHILS 4.8 10*3/uL Normal 1.6-7.6 The [facility] Comment on above: Performed By: #### 4 1000, 53154, 54908, 12437, 66113, 84605 ####[facility].[address] Basophils Auto #/vol (Bld) 0.0 % Normal 0.0-1.0 The [facility] Comment on above: Performed By: #### 4 1000, 08010, 31825, 24705, 99000, 89409 ####[facility] [address] Eosinophils Auto #/vol (Bld) 0.1 10*3/uL Normal 0.0-0.5 The [facility] Comment on above: Performed By: #### 4 1000, 75293, 52700, 52587, 32823, 83726 ####[facility] Eosinophils/100 WBC Auto (Bld) 1.1 % Normal 0.0-6.0 The [facility] Comment on above: Performed By: #### 4 1000, 89819, 57329, 44366, 09590, 74437 ####[facility] Erythrocyte distribution width Auto Ratio (RBC) 13.5 % Normal 11.5-15.0 The [facility] Comment on above: Performed By: #### 4 1000, 03461, 97635, 82373, 39783, 75346 ####[facility].[address] Hematocrit Auto Volume Fraction (Bld) 46.1 % High 36.0-45.0 The [facility] Comment on above: Performed By: #### 4 1000, 21157, 14684, 79294, 24417, 82534 ####[facility].[address] Hemoglobin mass conc (Bld) 15.0 g/dL Normal 12.0-15.0 The [facility] Comment on above: Performed By: #### 4 1000, 71714, 25708, 02616, 81312, 25834 ####[facility].[address] IMMATURE GRANS 0.3 % Normal 0.0-1.0 [facility] Comment on above: Performed By: #### 4 1000, 86657, 62552, 98021, 04877, 39086 ####[facility].[address] Lymphocytes Auto #/vol (Bld) 1.0 10*3/uL Low 1.2-4.0 The [facility] Comment on above: Performed By: #### 4 1000, 36810, 31932, 23122, 27616, 37981 ####[facility].[address] Lymphocytes/100 WBC Auto (Bld) 15.7 % Low 20.0-45.0 The [facility] Comment on above: Performed By: #### 4 1000, 34133, 95321, 70357, 89668, 86609 ####[facility].[address] MCH Auto Entitic mass (RBC) 28.8 pg Normal 27.0-33.0 The [facility] Comment on above: Performed By: #### 4 1000, 07376, 18734, 29454, 02395, 61486 ####[facility].[address] MCHC Auto mass conc (RBC) 32.5 g/dL Normal 32.0-35.0 The [facility] Comment on above: Performed By: #### 4 1000, 63437, 04536, 22012, 55091, 19394 ####[facility].[address] MCV Auto Entitic volume (RBC) 88.7 fL Normal 82.0-98.0 The [facility] Comment on above: Performed By: #### 4 1000, 11063, 57543, 89002, 31007, 37276 ####[facility].[address] Monocytes Auto #/vol (Bld) 0.8 10*3/uL Normal 0.1-1.0 The [facility] Comment on above: Performed By: #### 4 1000, 20964, 44375, 30748, 36096, 59930 ####[facility].[address] MONOS 11.4 % Normal 5.0-12.0 The [facility] Comment on above: Performed By: #### 4 1000, 79885, 74034, 32949, 93262, 18574 ####[facility] Neutrophils/100 WBC Auto (Bld) 71.5 % Normal 40.0-72.0 The [facility] Comment on above: Performed By: #### 4 1000, 85422, 18637, 35800, 83207, 56183 ####[facility] Nucleated RBC/100 WBC Ratio (Bld) 0 % Normal 0-0 The [facility] Comment on above: Performed By: #### 4 1000, 76788, 50694, 40691, 03805, 90873 ####[facility] PLAT CNT 199 10*3/uL Normal 150-400 The [facility] Comment on above: Performed By: #### 4 1000, 89250, 26827, 69031, 53543, 08579 ####[facility] RBC Auto #/vol (Bld) 5.20 10*6/uL High 3.80-5.00 The [facility] Comment on above: Performed By: #### 4 1000, 16823, 52636, 55155, 93796, 36599 ####[facility] WBC Auto #/vol (Bld) 6.6 10*3/uL Normal 4.0-10.6 The [facility] Comment on above: Performed By: #### 4 1000, 66692, 77300, 83232, 34098, 36237 ####[facility] [place] [address], [facility] COMP METABOLIC PANELon 05-27 Albumin mass conc 4.6 g/dL Normal 3.5-5.7 The [facility] Comment on above: Performed By: #### 4 1000, 78730, 07827, 66434, 96044, 03639 ####[facility] [place] [address], [facility] ALKALINE PHOSPH 105 IU/L High 34-104 The [facility] Comment on above: Performed By: #### 4 1000, 18191, 83762, 97934, 53933, 00321 ####[facility] [place] [address], [facility] ALT enzyme act/vol 20 U/L Normal 7-[address] [facility] Comment on above: Performed By: #### 4 1000, 08438, 08652, 22857, 94498, 79011 ####[facility] [place] [address], [facility] AST enzyme act/vol 23 U/L Normal 13-[address] [facility] Comment on above: Performed By: #### 4 1000, 95682, 29434, 91969, 00036, 23031 ####[facility] [place] [address], [facility] Bilirubin mass conc 0.6 mg/dL Normal 0.3-1.0 The [facility] Comment on above: Performed By: #### 4 1000, 58687, 39794, 43412, 22835, 72648 ####[facility] [place] [address], [facility] Calcium mass conc 9.8 mg/dL Normal 8.6-10.3 The [facility] Comment on above: Performed By: #### 4 1000, 49682, 65931, 55238, 98558, 56507 ####[facility] [place] [address], [place] Chloride molar conc 106 mmol/L Normal 98-107 The [facility] Comment on above: Performed By: #### 4 1000, 29633, 87838, 73134, 45409, 33156 ####[facility] [place] [address], [facility] CO2 molar conc 30 mmol/L Normal 21-31 The Regional [facility] Comment on above: Performed By: #### 4 1000, 70446, 82914, 26689, 76041, 36580 ####[facility] [place] [address], [facility] Creatinine mass conc 0.80 mg/dL Normal 0.60-1.20 [facility] Comment on above: Performed By: #### 4 1000, 96212, 25872, 69542, 35986, 85339 ####[facility] [place] [address], [facility] GFR/1.73 sq M predicted among blacks MDRD vol rate/area (S/P/Bld) mL/min/{1.73_m2} Normal >60 The [facility] Comment on above: Performed By: #### 4 1000, 33922, 99253, 29702, 45440, 31721 ####[facility] [place] [address], [facility] GFR/1.73 sq M predicted among non-blacks MDRD vol rate/area (S/P/Bld) mL/min/{1.73_m2} Normal >60 The [facility] Comment on above: Performed By: #### 4 1000, 74528, 68164, 82265, 24415, 30865 ####[facility] [place] [address], [facility] Glucose mass conc 90 mg/dL Normal 70-100 [facility] Comment on above: Performed By: #### 4 1000, 75097, 16243, 76825, 45423, 79286 ####[facility] [place] [address], [facility] Potassium molar conc 4.0 mmol/L Normal 3.5-5.1 The [facility] Comment on above: Performed By: #### 4 1000, 62615, 52143, 28713, 04274, 60422 ####[facility] [place] [address], [facility] Protein mass conc 6.8 g/dL Normal 6.0-8.3 The [facility] Comment on above: Performed By: #### 4 1000, 41319, 29130, 62555, 44563, 66641 ####[facility] [place] [address], [facility] Sodium molar conc 138 mmol/L Normal 136-145 The [facility] Comment on above: Performed By: #### 4 1000, 24526, 98237, 55921, 99658, 47907 ####[facility] [place] [address], [facility] Urea nitrogen mass conc 14 mg/dL Normal 7-25 The [facility] Comment on above: Performed By: #### 4 1000, 12901, 47608, 26081, 03620, 79352 ####[facility] DIRECT BILIon 05-27-2017 Bilirubin.direct mass conc 0.1 mg/dL Normal 0.0-0.2 The [facility] Comment on above: Performed By: #### 4 1000, 07762, 89961, 11111, 59548, 90879 ####[facility] [place] [address], [facility] EVEROLIMUS [id number] 8 EVEROLIMUS 5.6 ng/mL Normal The [facility] Comment on above: Result Comment: Ther [...] the transplantcenter.Test developed and characteristics determined by [facility]. See Compliance Statement B: [email or web address]/CSPerformed by [employer],[address] [place] [id number] [email or web address], Leonid Antonio MD - Lab. Director HEMOGLOBIN A1Con 05-27-2017 Glucose mass conc 108 mg/dL Normal 70-126 The [facility] Comment on above: Performed By: #### 4 1000, 13481, 21601, 00650, 60933, 27400 ####[facility] [facility] [address], [facility] Hemoglobin A1c/Hemoglobin.tota l mass fraction (Bld) 5.4 % Normal 4.0-6.0 The [facility] Comment on above: Performed By: #### 4 1000, 12899, 82764, 98880, 75409, 35549 ####[facility] [facility] [address], [facility] LIPID PROFILEon 05-27-2017 Cholesterol in HDL mass conc 39 mg/dL Normal 23-92 The [facility] Comment on above: Result Comment: Slig ht variation in normal range could be due to gender and/or age.HDL CHOLESTEROL REFERENCE RANGE:20 years and older Cardiovascular Risk> or =60 mg/dL Hhfrnbibm33 TO 59 mg/dL Low Risk<40 mg/dL High Risk Performed By: #### 4 1000, 58654, 47707, 30091, 08221, 05317 ####[facility] [facility] [address], [facility] Cholesterol in LDL mass conc 52 mg/dL Normal 0-130 The [facility] Comment on above: Result Comment: LDL IS A CALCULATIONLDL IS ONLY VALID IF THE TRIG IS LESS THAN 400. Performed By: #### 4 1000, 97271, 98814, 60039, 34291, 34526 ####[facility] [facility] [address], [facility] Cholesterol mass conc 117 mg/dL Low 120-200 The [facility] Comment on above: Result Comment: CHOL ESTEROL REFERENCE RANGE:20 YEARS AND OLDER CARDIOVASCULAR RISKLess than 200 mg/dl Low Rtql946 to 239 mg/dl Borderline Enfg954 mg/dl and greater High Risk Performed By: #### 4 1000, 41443, 71671, 97830, 60949, 23478 ####[facility] [facility] [address], [facility] Cholesterol.total/C holesterol in HDL mass ratio 3.0 {ratio} Normal .0-4.5 [facility] Comment on above: Performed By: #### 4 1000, 49434, 51238, 89167, 18150, 13204 ####[facility] [facility] [address], [facility] NON-HDL CHOLESTEROL 78 mg/dL Normal The [facility] Comment on above: Performed By: #### 4 1000, 15462, 18353, 28664, 17204, 91852 ####[facility] [facility] [address], [facility] Triglyceride mass conc 131 mg/dL Normal 40-149 The [facility] Comment on above: Result Comment: TRIG LYCERIDE REFERENCE RANGE:20 YEARS AND OLDER CARDIOVASCULAR RISKLESS THAN 150 mg/dl LOW [id number] TO 199 mg/dl BORDERLINE [id number] mg/dl AND GREATER HIGH RISK Performed By: #### 4 1000, 36523, 17026, 03020, 45761, 57316 ####[facility] [facility].[address] VLDL CHOL 26 mg/dL Normal 0-40 The [facility] Comment on above: Performed By: #### 4 1000, 28718, 25430, 04735, 51830, 67216 ####[facility] [facility].[address] MAGNESIUM BLOODon 05-27-2017 Magnesium mass conc 2.1 mg/dL Normal 1.9-2.7 The [facility] Comment on above: Performed By: #### 4 1000, 13731, 16899, 79684, 28648, 22503 ####[facility] [facility].[address] PHOSPHORUS BLOODon 8 Phosphate mass conc 3.5 mg/dL Normal 2.5-5.0 The [facility] Comment on above: Performed By: #### 4 1000, 13167, 00912, 67963, 27985, 36223 ####[facility] [facility].[address] TACROLIMUSon 05-27-2017 Tacrolimus mass conc (Bld) 4.4 ng/mL Low 5.0-20.0 The [facility] Comment on above: Result Comment: The [employer] Tacrolimus assay is a delayed one-step immunoassayfor the quantitative determination of tacrolimus in human whole bloodusing the chemiluminescent microparticle immunoassay (CMIA) technologywith flexible assay protocols, referred to as Chemiflex. Performed By: #### 4 1000, 45000, 21819, 71081, 28574, 56064 ####[facility] [facility].[address] URIC ACID BLOODon 05-27-2017 Urate mass conc 4.6 mg/dL Normal 2.3-6.6 The [facility] Comment on above: Performed By: #### 4 1000, 04252, 45800, 18564, 97115, 60768 ####[facility] [facility].[address] CBC W/DIFFon 04-29-2017 ABS BASOPHILS 0.0 10*3/uL Normal 0.0-0.2 [facility] Comment on above: Performed By: #### 4 1000, 54808, 80190, 67044, 55795, 55549 ####[facility] [facility].[address] ABS IMM GRANS 0.0 10*3/uL Normal 0.0-0.2 [facility] Comment on above: Performed By: #### 4 1000, 33744, 06865, 81800, 84365, 79204 ####[facility] [facility].[address] ABS NEUTROPHILS 4.6 10*3/uL Normal 1.6-7.6 The [facility] Comment on above: Performed By: #### 4 1000, 11510, 32237, 55394, 05860, 69414 ####[facility] [facility].[address] Basophils Auto #/vol (Bld) 0.3 % Normal 0.0-1.0 The [facility] Comment on above: Performed By: #### 4 1000, 82830, 99338, 95483, 68749, 79708 ####[facility] [facility].[address] Eosinophils Auto #/vol (Bld) 0.1 10*3/uL Normal 0.0-0.5 The [facility] Comment on above: Performed By: #### 4 1000, 91856, 10225, 20980, 62810, 46261 ####[facility] Eosinophils/100 WBC Auto (Bld) 1.7 % Normal 0.0-6.0 The [facility] Comment on above: Performed By: #### 4 1000, 97885, 84792, 53779, 81592, 45621 ####[place] [address] [facility].[address] Erythrocyte distribution width Auto Ratio (RBC) 13.7 % Normal 11.5-15.0 The [facility] Comment on above: Performed By: #### 4 1000, 54797, 40291, 63780, 86579, 03608 ####[place] [address] [facility].[address] Hematocrit Auto Volume Fraction (Bld) 45.0 % Normal 36.0-45.0 The [facility] Comment on above: Performed By: #### 4 1000, 11055, 10003, 44574, 70777, 80716 ####[place] [address] [facility].[address] Hemoglobin mass conc (Bld) 14.9 g/dL Normal 12.0-15.0 The [facility] Comment on above: Performed By: #### 4 1000, 46918, 75316, 81124, 66005, 47734 ####[place] [address] [facility].[address] IMMATURE GRANS 0.3 % Normal 0.0-1.0 [facility] Comment on above: Performed By: #### 4 1000, 22790, 21708, 26783, 51944, 30656 ####[place] [address] [facility].[address] Lymphocytes Auto #/vol (Bld) 0.9 10*3/uL Low 1.2-4.0 The [facility] Comment on above: Performed By: #### 4 1000, 60716, 96995, 87999, 31053, 76136 ####[facility] [facility].[address] Lymphocytes/100 WBC Auto (Bld) 14.2 % Low 20.0-45.0 The [facility] Comment on above: Performed By: #### 4 1000, 89770, 80903, 83423, 29318, 51420 ####[facility] [facility].[address] MCH Auto Entitic mass (RBC) 29.4 pg Normal 27.0-33.0 The [facility] Comment on above: Performed By: #### 4 1000, 26972, 44501, 18591, 60272, 18814 ####[facility]3000 [facility].[address] MCHC Auto mass conc (RBC) 33.1 g/dL Normal 32.0-35.0 The [facility] Comment on above: Performed By: #### 4 1000, 40626, 10465, 07265, 38014, 82739 ####[facility] [facility].[address] MCV Auto Entitic volume (RBC) 88.8 fL Normal 82.0-98.0 The [facility] Comment on above: Performed By: #### 4 1000, 86334, 47348, 37726, 61984, 95600 ####[facility]3000 [facility].[address] Monocytes Auto #/vol (Bld) 0.8 10*3/uL Normal 0.1-1.0 The [facility] Comment on above: Performed By: #### 4 1000, 25453, 84430, 56800, 54100, 94523 ####[facility]3000 [facility].[address] MONOS 12.2 % High 5.0-12.0 The [facility] Comment on above: Performed By: #### 4 1000, 76943, 53809, 84126, 87182, 79716 ####[facility] [place] [address], [facility] Neutrophils/100 WBC Auto (Bld) 71.3 % Normal 40.0-72.0 [facility] Comment on above: Performed By: #### 4 1000, 49422, 69005, 67620, 60578, 28692 ####[facility] Nucleated RBC/100 WBC Ratio (Bld) 0 % Normal 0-0 The [facility] Comment on above: Performed By: #### 4 1000, 79302, 54860, 77301, 47502, 81972 ####[facility] PLAT CNT 215 10*3/uL Normal 150-400 The [facility] Comment on above: Performed By: #### 4 1000, 60532, 26970, 80106, 42882, 99661 ####[facility] RBC Auto #/vol (Bld) 5.07 10*6/uL High 3.80-5.00 The [facility] Comment on above: Performed By: #### 4 1000, 05136, 15756, 68862, 94965, 85144 ####[facility] WBC Auto #/vol (Bld) 6.5 10*3/uL Normal 4.0-10.6 The [facility] Comment on above: Performed By: #### 4 1000, 11869, 93138, 88636, 92138, 37998 ####[facility] COMP METABOLIC PANELon 04-29 Albumin mass conc 4.4 g/dL Normal 3.5-5.7 The [facility] Comment on above: Performed By: #### 4 1000, 68461, 85893, 08352, 39261, 95613 ####[facility] [place] [address], [facility] ALKALINE PHOSPH 114 IU/L High 34-104 The [facility] Comment on above: Performed By: #### 4 1000, 47904, 02308, 90313, 97870, 47952 ####[facility] [place] [address], [facility] ALT enzyme act/vol 15 U/L Normal 7-[address] [facility] Comment on above: Performed By: #### 4 1000, 07847, 08663, 75269, 23894, 03380 ####[facility] [place] [address], [facility] AST enzyme act/vol 19 U/L Normal 13-[address] [facility] Comment on above: Performed By: #### 4 1000, 16829, 04300, 69974, 96776, 03046 ####[facility] [place] [address], [facility] Bilirubin mass conc 0.7 mg/dL Normal 0.3-1.0 The [facility] Comment on above: Performed By: #### 4 1000, 80439, 84566, 70307, 99400, 84209 ####[facility] [place] [address], [facility] Calcium mass conc 9.6 mg/dL Normal 8.6-10.3 The [facility] Comment on above: Performed By: #### 4 1000, 06189, 79276, 98415, 46241, 16172 ####[facility] [place] [address], [facility] Chloride molar conc 103 mmol/L Normal 98-107 The [facility] Comment on above: Performed By: #### 4 1000, 42985, 37988, 74353, 93371, 17423 ####[facility] [place] [address], [facility] CO2 molar conc 29 mmol/L Normal 21-31 [facility] Comment on above: Performed By: #### 4 1000, 41907, 09544, 20828, 07973, 60371 ####[facility] [place] [address], [facility] Creatinine mass conc 0.79 mg/dL Normal 0.60-1.20 [facility] Comment on above: Performed By: #### 4 1000, 58001, 44043, 42532, 06298, 23440 ####[facility] [place] [address], [facility] GFR/1.73 sq M predicted among blacks MDRD vol rate/area (S/P/Bld) mL/min/{1.73_m2} Normal >60 The [facility] Comment on above: Performed By: #### 4 1000, 51271, 86229, 87661, 46391, 56491 ####[facility] [place] [address], [facility] GFR/1.73 sq M predicted among non-blacks MDRD vol rate/area (S/P/Bld) mL/min/{1.73_m2} Normal >60 The [facility] Comment on above: Performed By: #### 4 1000, 47926, 26223, 44101, 39862, 61617 ####[facility] [place] [address], [place] Glucose mass conc 90 mg/dL Normal 70-100 [facility] Comment on above: Performed By: #### 4 1000, 23010, 34818, 57722, 89219, 61414 ####[facility] [place] [address], [place] Potassium molar conc 3.8 mmol/L Normal 3.5-5.1 The [facility] Comment on above: Performed By: #### 4 1000, 80986, 94180, 49460, 11288, 72018 ####[facility] Protein mass conc 7.2 g/dL Normal 6.0-8.3 The [facility] Comment on above: Performed By: #### 4 1000, 16936, 97216, 29432, 89451, 75573 ####[facility] Sodium molar conc 140 mmol/L Normal 136-145 The [facility] Comment on above: Performed By: #### 4 1000, 84608, 33258, 21352, 98441, 03052 ####[facility] Urea nitrogen mass conc 15 mg/dL Normal 7-25 The [facility] Comment on above: Performed By: #### 4 1000, 82468, 45189, 24046, 50159, 63287 ####[facility] DIRECT BILIon 04-29-2017 Bilirubin.direct mass conc 0.1 mg/dL Normal 0.0-0.2 The [facility] Comment on above: Order Comment: Liver Battery conflicts with Comprehensive Metabolic Panel. Liver Battery canceled and Direct Bilirubin added. Performed By: #### 4 1000, 47427, 49340, 71854, 05625, 66592 ####[facility] EVEROLIMUS [id number] 8 EVEROLIMUS 5.4 ng/mL Normal The [facility] Comment on above: Result Comment: Ther [...] the transplantcenter.Test developed and characteristics determined by [email or web address]. See Compliance Statement B: [email or web address] by [employer],[address] [place] [id number] [email or web address], Leonid Antonio MD - Lab. Director LIPID PROFILEon 04-29-2017 Cholesterol in HDL mass conc 49 mg/dL Normal 23-92 [facility] Comment on above: Result Comment: Slig ht variation in normal range could be due to gender and/or age.HDL CHOLESTEROL REFERENCE RANGE:20 years and older Cardiovascular Risk> or =60 mg/dL [id number] TO 59 mg/dL Low Risk<40 mg/dL High Risk Performed By: #### 4 1000, 56801, 43098, 96189, 14118, 11683 ####[facility] [place] [address], [facility] Cholesterol in LDL mass conc 52 mg/dL Normal 0-130 The [facility] Comment on above: Result Comment: LDL IS A CALCULATIONLDL IS ONLY VALID IF THE TRIG IS LESS THAN 400. Performed By: #### 4 1000, 46701, 01382, 17365, 69936, 32825 ####[facility] [place] [address], [facility] Cholesterol mass conc 122 mg/dL Normal 120-200 The [facility] Comment on above: Result Comment: CHOL ESTEROL REFERENCE RANGE:20 YEARS AND OLDER CARDIOVASCULAR RISKLess than 200 mg/dl Low Ohwv062 to 239 mg/dl Borderline Gdbr488 mg/dl and greater High Risk Performed By: #### 4 1000, 44890, 70071, 26068, 59169, 71968 ####[facility] [place] [address], [facility] Cholesterol.total/C holesterol in HDL mass ratio 2.5 {ratio} Normal .0-4.5 The [facility] Comment on above: Performed By: #### 4 1000, 87680, 49627, 09765, 65216, 63071 ####[facility] [place] [address], [facility] NON-HDL CHOLESTEROL 73 mg/dL Normal The [facility] Comment on above: Performed By: #### 4 1000, 40025, 63991, 99630, 69697, 73637 ####[facility] [place] [address], [facility] Triglyceride mass conc 106 mg/dL Normal 40-149 The [facility] Comment on above: Result Comment: TRIG LYCERIDE REFERENCE RANGE:20 YEARS AND OLDER CARDIOVASCULAR RISKLESS THAN 150 mg/dl LOW [id number] TO 199 mg/dl BORDERLINE [id number] mg/dl AND GREATER HIGH RISK Performed By: #### 4 1000, 19370, 83170, 10928, 50657, 93283 ####[facility] [place] [address], [facility] VLDL CHOL 21 mg/dL Normal 0-40 The [facility] Comment on above: Performed By: #### 4 1000, 69547, 02794, 17421, 53790, 02577 ####[facility] [place] [address], [facility] MAGNESIUM BLOODon 04-29-2017 Magnesium mass conc 2.1 mg/dL Normal 1.9-2.7 The [facility] Comment on above: Performed By: #### 4 1000, 39053, 80926, 99413, 87652, 83859 ####[facility] [facility] [address], [facility] PHOSPHORUS BLOODon 8 Phosphate mass conc 3.3 mg/dL Normal 2.5-5.0 The [facility] Comment on above: Performed By: #### 4 1000, 07689, 58414, 14141, 18891, 96987 ####[facility] [facility] [address], [facility] TACROLIMUSon 04-29-2017 Tacrolimus mass conc (Bld) 4.6 ng/mL Low 5.0-20.0 The [facility] Comment on above: Result Comment: The [employer] Tacrolimus assay is a delayed one-step immunoassayfor the quantitative determination of tacrolimus in human whole bloodusing the chemiluminescent microparticle immunoassay (CMIA) technologywith flexible assay protocols, referred to as Chemiflex. Performed By: #### 4 1000, 23414, 47465, 38708, 74304, 54302 ####[facility] [facility] [address], [facility] URIC ACID BLOODon 04-29-2017 Urate mass conc 4.6 mg/dL Normal 2.3-6.6 The [facility] Comment on above: Performed By: #### 4 1000, 23399, 56295, 09420, 15643, 27793 ####[facility] [facility] [address], [facility] CBC W/DIFFon 03-27-2017 Basophils Auto #/vol (Bld) 0.2 % Normal 0.0-2.0 The [facility] Comment on above: Performed By: #### 4 1000, 48016, 61521, 83874, 78654, 33195 ####[facility] [facility] [address], [facility] Eosinophils/100 WBC Auto (Bld) 1.8 % Normal 0.0-5.0 The [facility] Comment on above: Performed By: #### 4 1000, 00656, 62964, 19246, 28824, 82861 ####[facility] Erythrocyte distribution width Auto Ratio (RBC) 13.6 % Normal 11.5-16.9 The [facility] Comment on above: Performed By: #### 4 1000, 39759, 01702, 22611, 01215, 68404 ####[facility] Hematocrit Auto Volume Fraction (Bld) 47.6 % Normal 36.0-48.0 The [facility] Comment on above: Performed By: #### 4 1000, 32906, 85425, 77056, 45356, 89510 ####[facility] Hemoglobin mass conc (Bld) 15.8 g/dL High 12.0-15.0 The [facility] Comment on above: Performed By: #### 4 1000, 91548, 12673, 97408, 76643, 18732 ####[facility] [facility].[address] Lymphocytes/100 WBC Auto (Bld) 14.5 % Low 20.0-40.0 The [facility] Comment on above: Performed By: #### 4 1000, 14778, 29100, 59060, 55140, 71128 ####[facility] MCH Auto Entitic mass (RBC) 29.0 pg Normal 24.0-32.0 The [facility] Comment on above: Performed By: #### 4 1000, 68614, 02784, 41227, 45101, 06561 ####[facility] MCHC Auto mass conc (RBC) 33.3 g/dL Normal 32.0-36.0 The [facility] Comment on above: Performed By: #### 4 1000, 43387, 97842, 49599, 67338, 16729 ####[facility] MCV Auto Entitic volume (RBC) 87.4 fL Normal 80.0-100.0 The [facility] Comment on above: Performed By: #### 4 1000, 26427, 07994, 36933, 37466, 65691 ####[facility] METHOD Normal RBC Morphology Normal [facility] Comment on above: Performed By: #### 4 1000, 33715, 28496, 52445, 41325, 92352 ####[facility] MONOS 9.6 % High 2-8 The [facility] Comment on above: Performed By: #### 4 1000, 23612, 78715, 61098, 35329, 45874 ####[facility] Neutrophils/100 WBC Auto (Bld) 73.9 % High 50-70 The [facility] Comment on above: Performed By: #### 4 1000, 86219, 87355, 68348, 95113, 64677 ####[facility] PLAT CNT 228 Thou/mm3 Normal 100-400 The [facility] Comment on above: Performed By: #### 4 1000, 76997, 20857, 62103, 39987, 01940 ####[facility] RBC Auto #/vol (Bld) 5.45 mill/mm3 Normal 3.50-5.50 The [facility] Comment on above: Performed By: #### 4 1000, 07336, 72594, 97604, 04898, 41111 ####[facility] WBC Auto #/vol (Bld) 6.5 Thou/mm3 Normal 4.0-10.0 The [facility] Comment on above: Performed By: #### 4 1000, 25645, 95093, 64512, 10536, 58400 ####[facility] COMP METABOLIC PANELon 03-27 Albumin mass conc 4.7 g/dL Normal 3.5-5.7 The [facility] Comment on above: Performed By: #### 4 1000, 83742, 88113, 77847, 19551, 99673 ####[facility] ALKALINE PHOSPH 99 IU/L Normal 34-104 The [facility] Comment on above: Performed By: #### 4 1000, 50965, 80324, 07169, 75199, 82674 ####[facility] ALT enzyme act/vol 19 U/L Normal 7-[address] [facility] Comment on above: Performed By: #### 4 1000, 02904, 83754, 64517, 30019, 76305 ####[facility] [place] [address], [facility] AST enzyme act/vol 21 U/L Normal 13-[address] [facility] Comment on above: Performed By: #### 4 1000, 74354, 57263, 51467, 45214, 32855 ####[facility] [place] [address], [facility] Bilirubin mass conc 0.6 mg/dL Normal 0.3-1.0 The [facility] Comment on above: Performed By: #### 4 1000, 87389, 86521, 75303, 68896, 82414 ####[facility] [place] [address], [facility] Calcium mass conc 10.2 mg/dL Normal 8.6-10.3 [facility] Comment on above: Performed By: #### 4 1000, 90191, 00674, 17017, 90079, 80861 ####[facility] [place] [address], [place] Chloride molar conc 104 mmol/L Normal 98-107 The [facility] Comment on above: Performed By: #### 4 1000, 26234, 94028, 92560, 36540, 77172 ####[facility] [place] [address], [place] CO2 molar conc 28 mmol/L Normal 21-31 [facility] Comment on above: Performed By: #### 4 1000, 53424, 73359, 25054, 64534, 56943 ####[facility] [place] [address], [facility] Creatinine mass conc 0.78 mg/dL Normal 0.60-1.20 The [facility] Comment on above: Performed By: #### 4 1000, 70603, 42637, 68215, 82231, 37700 ####[facility] [place] [address], [place] GFR/1.73 sq M predicted among blacks MDRD vol rate/area (S/P/Bld) mL/min/{1.73_m2} Normal >60 The [facility] Comment on above: Performed By: #### 4 1000, 26791, 04580, 88976, 03412, 08232 ####[facility] [place] [address], [place] GFR/1.73 sq M predicted among non-blacks MDRD vol rate/area (S/P/Bld) mL/min/{1.73_m2} Normal >60 The [facility] Comment on above: Performed By: #### 4 1000, 37540, 87857, 78497, 96623, 74078 ####[facility] [place] [address], [facility] Glucose mass conc 87 mg/dL Normal 70-100 The [facility] Comment on above: Performed By: #### 4 1000, 96846, 97806, 87821, 53438, 10168 ####[facility] [place] [address], [facility] Potassium molar conc 4.1 mmol/L Normal 3.5-5.1 The [facility] Comment on above: Performed By: #### 4 1000, 22855, 19522, 26541, 05253, 96255 ####[facility] [place] [address], [facility] Protein mass conc 7.8 g/dL Normal 6.0-8.3 [facility] Comment on above: Performed By: #### 4 1000, 53193, 05405, 82507, 41407, 59336 ####[facility] [place] [address], [facility] Sodium molar conc 139 mmol/L Normal 136-145 [facility] Comment on above: Performed By: #### 4 1000, 27893, 77562, 74793, 95699, 16806 ####[facility].[place] [id number], [facility] Urea nitrogen mass conc 19 mg/dL Normal 7-25 The [facility] Comment on above: Performed By: #### 4 1000, 85523, 37443, 58496, 20328, 27622 ####[facility] [place] [address], [facility] DIRECT BILIon 03-27-2017 Bilirubin.direct mass conc 0.1 mg/dL Normal 0.0-0.2 The [facility] Comment on above: Performed By: #### 4 1000, 45759, 02900, 89386, 45139, 69052 ####[facility] [place] [address], [facility] EVEROLIMUS [id number] 7 EVEROLIMUS 5.3 ng/mL Normal The [facility] Comment on above: Result Comment: Ther [...] the transplantcenter.Test developed and characteristics determined by [facility]. See Compliance Statement B: [email or web address]/CSPerformed by [employer],[address] [place] [address] nub.[email or web address], Leonid Antonio MD - Lab. Director LIPID PROFILEon 03-27-2017 Cholesterol in HDL mass conc 50 mg/dL Normal 23-92 The [facility] Comment on above: Result Comment: Slig ht variation in normal range could be due to gender and/or age.HDL CHOLESTEROL REFERENCE RANGE:20 years and older Cardiovascular Risk> or =60 mg/dL Wzmjhujry06 TO 59 mg/dL Low Risk<40 mg/dL High Risk Performed By: #### 4 1000, 31142, 74060, 64146, 65580, 25612 ####[facility] [place] [address], [facility] Cholesterol in LDL mass conc 66 mg/dL Normal 0-130 The [facility] Comment on above: Result Comment: LDL IS A CALCULATIONLDL IS ONLY VALID IF THE TRIG IS LESS THAN 400. Performed By: #### 4 1000, 35464, 79809, 03511, 79508, 47422 ####[facility] [place] [address], [facility] Cholesterol mass conc 147 mg/dL Normal 120-200 The [facility] Comment on above: Result Comment: CHOL ESTEROL REFERENCE RANGE:20 YEARS AND OLDER CARDIOVASCULAR RISKLess than 200 mg/dl Low Vddp148 to 239 mg/dl Borderline Mpcf799 mg/dl and greater High Risk Performed By: #### 4 1000, 53033, 41353, 28474, 09401, 66499 ####[facility] [facility], [place] [address], [facility] Cholesterol.total/C holesterol in HDL mass ratio 2.9 {ratio} Normal .0-4.5 [facility] Comment on above: Performed By: #### 4 1000, 31990, 56505, 50993, 94288, 41563 ####[facility] [facility], [place] [address], [facility] NON-HDL CHOLESTEROL 97 mg/dL Normal The [facility] Comment on above: Performed By: #### 4 1000, 13049, 14935, 87849, 36151, 32013 ####[facility] [place] [address], [facility] Triglyceride mass conc 157 mg/dL High 40-149 The [facility] Comment on above: Result Comment: TRIG LYCERIDE REFERENCE RANGE:20 YEARS AND OLDER CARDIOVASCULAR RISKLESS THAN 150 mg/dl LOW PHGZ207 TO 199 mg/dl BORDERLINE [id number] mg/dl AND GREATER HIGH RISK Performed By: #### 4 1000, 50762, 86763, 74763, 73118, 11056 ####[facility] [facility].[address] VLDL CHOL 31 mg/dL Normal 0-40 The [facility] Comment on above: Performed By: #### 4 1000, 36333, 38300, 30175, 78893, 27400 ####[facility] [facility].[address] MAGNESIUM BLOODon 03-27-2017 Magnesium mass conc 1.9 mg/dL Normal 1.9-2.7 The [facility] Comment on above: Performed By: #### 4 1000, 94159, 74114, 25274, 79746, 83900 ####[facility] [facility].[address] PHOSPHORUS BLOODon 7 Phosphate mass conc 3.4 mg/dL Normal 2.5-5.0 The [facility] Comment on above: Performed By: #### 4 1000, 17945, 13800, 14211, 33555, 07047 ####[facility] [facility].[address] TACROLIMUSon 03-27-2017 Tacrolimus mass conc (Bld) 3.7 ng/mL Low 5.0-20.0 The [facility] Comment on above: Result Comment: The [employer] Tacrolimus assay is a delayed one-step immunoassayfor the quantitative determination of tacrolimus in human whole bloodusing the chemiluminescent microparticle immunoassay (CMIA) technologywith flexible assay protocols, referred to as Chemiflex. Performed By: #### 4 1000, 48330, 00331, 27436, 57453, 47265 ####[facility]3000 [facility].[address] URIC ACID BLOODon 03-27-2017 Urate mass conc 4.1 mg/dL Normal 2.3-6.6 The [facility] Comment on above: Performed By: #### 4 1000, 28848, 03856, 85883, 41311, 74120 ####[facility] [facility].[address] BK VIRUS QUANTITATION PCR BL OODon 02-26-2017 BKV QUANT PCR Not detected Normal The [facility] Comment on above: Result Comment: Meth od: BK virus was measured by quantitative polymerase chain reactionusing a TaqMan probe targeting the polyomavirus BK [employer]-1 gene.The lower limit of quantitation of the assay is 500 copies of BK genomeper milliliter of plasma or urine, and any detectable BK DNA below thatlevel is reported as: Detected, <500 copies/ml. Serial BK virusmeasurement can be used to monitor disease activity. (Reference:Kelsie vaughanl. J CLIN MICRO 2004; 42:6156-8111).This test was developed and its performance characteristics determinedby the [facility]ostics [facility]. It has not been approvedby the [place] Food and Drug Administration. However, such approval is notrequired for clinical implementation, and test results have been shownto be clinically useful. This laboratory is CAP accredited and CLIAcertified to perform high complexity testing. Performed By: #### 4 1000, 54149, 69215, 22394, 79700, 19932 ####[facility] [facility].[address] LOG 10 COPIES Not detected Normal The [facility] Comment on above: Performed By: #### 4 1000, 44884, 25244, 93713, 39878, 56466 ####[facility]3000 [facility].[address] CBC W/DIFFon 02-26-2017 Basophils Auto #/vol (Bld) 0.3 % Normal 0.0-2.0 The [facility] Comment on above: Performed By: #### 5 0103 ####[address] Eosinophils/100 WBC Auto (Bld) 2.2 % Normal 0.0-5.0 The [facility] Comment on above: Performed By: #### 5 0103 ####[facility] Erythrocyte distribution width Auto Ratio (RBC) 13.8 % Normal 11.5-16.9 [facility] Comment on above: Performed By: #### 3 ####[facility] Hematocrit Auto Volume Fraction (Bld) 44.9 % Normal 36.0-48.0 The [facility] Comment on above: Performed By: #### 5 3 ####[place] [address] [address] Hemoglobin mass conc (Bld) 15.0 g/dL Normal 12.0-15.0 The [facility] Comment on above: Performed By: #### 5 3 ####[facility] Lymphocytes/100 WBC Auto (Bld) 18.9 % Low 20.0-40.0 The [facility] Comment on above: Performed By: #### 5 0103 ####[facility] MCH Auto Entitic mass (RBC) 28.9 pg Normal 24.0-32.0 The [facility] Comment on above: Performed By: #### 5 0103 ####[facility] MCHC Auto mass conc (RBC) 33.4 g/dL Normal 32.0-36.0 The [facility] Comment on above: Performed By: #### 5 3 ####[facility] MCV Auto Entitic volume (RBC) 86.6 fL Normal 80.0-100.0 The [facility] Comment on above: Performed By: #### 5 0103 ####[facility] [place] [address], [facility] METHOD Normal RBC Morphology Normal [facility] Comment on above: Performed By: #### 5 3 ####[facility] [place] [address], [facility] MONOS 11.7 % High 2-8 The [facility] Comment on above: Performed By: #### 5 0103 ####[facility] [place] [address], [facility] Neutrophils/100 WBC Auto (Bld) 66.9 % Normal 50-70 [facility] Comment on above: Performed By: #### 5 3 ####[facility] [place] [address], [facility] PLAT CNT 230 Thou/mm3 Normal 100-400 [facility] Comment on above: Performed By: #### 5 0103 ####[facility] [place] [address], [facility] RBC Auto #/vol (Bld) 5.18 mill/mm3 Normal 3.50-5.50 The [facility] Comment on above: Performed By: #### 5 3 ####[facility] [place] [address], [facility] WBC Auto #/vol (Bld) 5.8 Thou/mm3 Normal 4.0-10.0 The [facility] Comment on above: Performed By: #### 5 3 ####[facility] [place] [address], [facility] COMP METABOLIC PANELon 02-26 Albumin mass conc 4.7 g/dL Normal 3.5-5.7 [facility] Comment on above: Performed By: #### 4 1000, 18591, 48056, 34574, 87500, 02889 ####[facility].[place] [id number], [facility] ALKALINE PHOSPH 115 IU/L High 34-104 [facility] Comment on above: Performed By: #### 4 1000, 89147, 82897, 24973, 51686, 88915 ####[facility] [place] [address], [facility] ALT enzyme act/vol 18 U/L Normal 7-[address] [facility] Comment on above: Performed By: #### 4 1000, 27964, 37028, 11906, 21878, 85030 ####[facility] [place] [address], [facility] AST enzyme act/vol 22 U/L Normal 13-[address] [facility] Comment on above: Performed By: #### 4 1000, 53502, 56195, 15971, 17432, 13059 ####[facility] [place] [address], [facility] Bilirubin mass conc 0.6 mg/dL Normal 0.3-1.0 The [facility] Comment on above: Performed By: #### 4 1000, 33109, 64142, 45440, 59208, 28949 ####[facility] [place] [address], [facility] Calcium mass conc 9.8 mg/dL Normal 8.6-10.3 [facility] Comment on above: Performed By: #### 4 1000, 18685, 32652, 64200, 49761, 69068 ####[facility] [id number], [facility] Chloride molar conc 103 mmol/L Normal 98-107 [facility] Comment on above: Performed By: #### 4 1000, 48498, 83242, 58560, 41017, 41065 ####[facility] [place] [address], [facility] CO2 molar conc 29 mmol/L Normal 21-31 [facility] Comment on above: Performed By: #### 4 1000, 93686, 31698, 53535, 38418, 63473 ####[facility] [place] [address], [facility] Creatinine mass conc 0.78 mg/dL Normal 0.60-1.20 The [facility] Comment on above: Performed By: #### 4 1000, 33450, 07331, 74666, 47658, 96270 ####[facility] [place] [address], [facility] GFR/1.73 sq M predicted among blacks MDRD vol rate/area (S/P/Bld) mL/min/{1.73_m2} Normal >60 [facility] Comment on above: Performed By: #### 4 1000, 94858, 70260, 69104, 43169, 62668 ####[facility] [facility], [place] [address], [facility] GFR/1.73 sq M predicted among non-blacks MDRD vol rate/area (S/P/Bld) mL/min/{1.73_m2} Normal >60 The [facility] Comment on above: Performed By: #### 4 1000, 26700, 61706, 43965, 83958, 40786 ####[facility] [place] [address], [place] Glucose mass conc 94 mg/dL Normal 70-100 [facility] Comment on above: Performed By: #### 4 1000, 99343, 25617, 92593, 19182, 59497 ####[facility] [place] [address], [place] Potassium molar conc 3.8 mmol/L Normal 3.5-5.1 [facility] Comment on above: Performed By: #### 4 1000, 30537, 25719, 12119, 36346, 98401 ####[facility] Protein mass conc 7.4 g/dL Normal 6.0-8.3 [facility] Comment on above: Performed By: #### 4 1000, 84457, 49178, 76226, 47297, 17580 ####[facility] Sodium molar conc 136 mmol/L Normal 136-145 [facility] Comment on above: Performed By: #### 4 1000, 81913, 73585, 65001, 04330, 82882 ####[facility] Urea nitrogen mass conc 19 mg/dL Normal 7-25 The [facility] Comment on above: Performed By: #### 4 1000, 63311, 78687, 63972, 93339, 32300 ####[facility] DIRECT BILIon 02-26-2017 Bilirubin.direct mass conc 0.1 mg/dL Normal 0.0-0.2 The [facility] Comment on above: Performed By: #### 4 1000, 82442, 23570, 37435, 29327, 88352 ####[facility] EVEROLIMUS [id number] 7 EVEROLIMUS 5.9 ng/mL Normal The [facility] Comment on above: Result Comment: Ther [...] the transplantcenter.Test developed and characteristics determined by [email or web address]. See Compliance Statement B: [email or web address]/CSPerformed by [employer],[address] [place] [id number] ifn.[email or web address], Leonid Antonio MD - Lab. Director HEMOGLOBIN A1Con 02-26-2017 Glucose mass conc 108 mg/dL Normal 70-126 [facility] Comment on above: Performed By: #### 4 9347, 75178 ####[facility] [facility] [address], [facility] Hemoglobin A1c/Hemoglobin.tota l mass fraction (Bld) 5.4 % Normal 4.0-6.0 [facility] Comment on above: Performed By: #### 4 6447, 96066 ####[facility] [facility] [place] [address], [facility] LIPID PROFILEon 02-26-2017 Cholesterol in HDL mass conc 54 mg/dL Normal 23-92 The [facility] Comment on above: Result Comment: Slig ht variation in normal range could be due to gender and/or age.HDL CHOLESTEROL REFERENCE RANGE:20 years and older Cardiovascular Risk> or =60 mg/dL Timopabtb04 TO 59 mg/dL Low Risk<40 mg/dL High Risk Performed By: #### 4 1000, 31127, 53081, 88955, 17514, 62819 ####[facility] [facility] [place] [address], [place] Cholesterol in LDL mass conc 70 mg/dL Normal 0-130 [facility] Comment on above: Result Comment: LDL IS A CALCULATIONLDL IS ONLY VALID IF THE TRIG IS LESS THAN 400. Performed By: #### 4 1000, 53922, 18674, 60679, 01084, 12591 ####[facility] [place] [address], [facility] Cholesterol mass conc 144 mg/dL Normal 120-200 The [facility] Comment on above: Result Comment: CHOL ESTEROL REFERENCE RANGE:20 YEARS AND OLDER CARDIOVASCULAR RISKLess than 200 mg/dl Low Kiky786 to 239 mg/dl Borderline Ljlm199 mg/dl and greater High Risk Performed By: #### 4 1000, 66178, 19260, 84620, 30824, 03213 ####[facility] Cholesterol.total/C holesterol in HDL mass ratio 2.7 {ratio} Normal .0-4.5 [facility] Comment on above: Performed By: #### 4 1000, 11271, 48441, 26911, 20262, 37514 ####[facility] NON-HDL CHOLESTEROL 90 mg/dL Normal The [facility] Comment on above: Performed By: #### 4 1000, 88836, 17975, 08020, 64639, 83863 ####[facility] Triglyceride mass conc 101 mg/dL Normal 40-149 The [facility] Comment on above: Result Comment: TRIG LYCERIDE REFERENCE RANGE:20 YEARS AND OLDER CARDIOVASCULAR RISKLESS THAN 150 mg/dl LOW SOZW214 TO 199 mg/dl BORDERLINE EOAN237 mg/dl AND GREATER HIGH RISK Performed By: #### 4 1000, 63523, 97847, 45764, 27330, 26959 ####[facility] [place] [address], [facility] VLDL CHOL 20 mg/dL Normal 0-40 [facility] Comment on above: Performed By: #### 4 1000, 52801, 35993, 37657, 68890, 32028 ####[facility] MAGNESIUM BLOODon 02-26-2017 Magnesium mass conc 1.9 mg/dL Normal 1.9-2.7 [facility] Comment on above: Performed By: #### 4 1000, 79934, 27733, 28884, 52898, 82241 ####[facility]3000 [facility].[address] PHOSPHORUS BLOODon 7 Phosphate mass conc 4.1 mg/dL Normal 2.5-5.0 [facility] Comment on above: Performed By: #### 4 1000, 72275, 83284, 87493, 63631, 79915 ####[facility] TACROLIMUSon 02-26-2017 Tacrolimus mass conc (Bld) 4.2 ng/mL Low 5.0-20.0 The [facility] Comment on above: Result Comment: The [employer] Tacrolimus assay is a delayed one-step immunoassayfor the quantitative determination of tacrolimus in human whole bloodusing the chemiluminescent microparticle immunoassay (CMIA) technologywith flexible assay protocols, referred to as Chemiflex. Performed By: #### 4 6447, 81006 ####[facility] URIC ACID BLOODon 02-26-2017 Urate mass conc 4.3 mg/dL Normal 2.3-6.6 [facility] Comment on above: Performed By: #### 4 1000, 33876, 53456, 95165, 54378, 97140 ####[facility] Vital Signs Date Time Vital Sign Value Performing Clinician Facility 03-27-2023 11:30-0500 Body height 152.4 cm Cathy Bella Other [facility] Other 03-27-2023 11:30-0500 Body mass index (BMI) [Ratio] 25.39 kg/m2 Cathy Bella Other [facility] Other 03-27-2023 11:30-0500 Body temperature 97.5 [degF] Cathy Bella Other [facility] Other 03-27-2023 11:30-0500 Body weight 58.97 kg Cathy Bella Other [facility] Other 03-27-2023 11:30-0500 Respiratory rate 18 /min Cathy Bella Other [facility] Other 03-27-2023 11:30-0500 SaO2% (BldA) [Mass fraction] 96 % Cathy Bella Other [facility] Other 09-21-2022 09:00-0400 Body height 152.4 cm Martha Guevara Other [facility] Other 09-21-2022 09:00-0400 Body mass index (BMI) [Ratio] 22.46 kg/m2 Martha Guevara Other [facility] Other 09-21-2022 09:00-0400 Body temperature 97.6 [degF] Martha Guevara Other [facility] Other 09-21-2022 09:00-0400 Body weight 52.16 kg Martha Guevara Other [facility] Other 09-21-2022 09:00-0400 Diastolic blood pressure 70 mm[Hg] Martha Guevara Other [facility] Other 09-21-2022 09:00-0400 Respiratory rate 18 /min Martha Guevara Other [facility] Other 09-21-2022 09:00-0400 SaO2% (BldA) [Mass fraction] 96 % Martha Guevara Other [facility] Other 09-21-2022 09:00-0400 Systolic blood pressure 107 mm[Hg] Martha Guevara Other [facility] Other 01-12-2022 13:55-0400 Body height 152.4 cm Cathy Baconler Other [facility] Other 01-12-2022 13:55-0400 Body mass index (BMI) [Ratio] 19.53 kg/m2 Cathy Bella Other [facility] Other 01-12-2022 13:55-0400 Body temperature 96.9 [degF] Cathy Bella Other [facility] Other 01-12-2022 13:55-0400 Body weight 45.36 kg Cathy Bella Other [facility] Other 01-12-2022 13:55-0400 Respiratory rate 18 /min Cathy Bella Other [facility] Other 01-12-2022 13:55-0400 SaO2% (BldA) [Mass fraction] 97 % Cathy Bella Other [facility] Other 12-28-2021 10:20-0400 Body height 152.4 cm Martha Guevara Other [facility] Other 12-28-2021 10:20-0400 Body mass index (BMI) [Ratio] 21.48 kg/m2 Martha Smithmond Other [facility] Other 12-28-2021 10:20-0400 Body temperature 98 [degF] Martha Smithmond Other [facility] Other 12-28-2021 10:20-0400 Body weight 49.9 kg Martha Smithmond Other [facility] Other 12-28-2021 10:20-0400 Respiratory rate 18 /min Martha Guevara Other [facility] Other 12-28-2021 10:20-0400 SaO2% (BldA) [Mass fraction] 97 % Martha Guevara Other [facility] Other 12-25-2021 10:05-0400 Body height 152.4 cm Cathy Bella Other [facility] Other 12-25-2021 10:05-0400 Body mass index (BMI) [Ratio] 21.48 kg/m2 Cathy Bella Other [facility] Other 12-25-2021 10:05-0400 Body temperature 96 [degF] Cathy Bella Other [facility] Other 12-25-2021 10:05-0400 Body weight 49.9 kg Cathy Bella Other [facility] Other 12-25-2021 10:05-0400 Respiratory rate 18 /min Cathy Bella Other [facility] Other 12-25-2021 10:05-0400 SaO2% (BldA) [Mass fraction] 97 % Cathy Bella Other [facility] Other 10-27-2021 12:35-0400 Body height 152.4 cm Cathy Bella Other [facility] Other 10-27-2021 12:35-0400 Body mass index (BMI) [Ratio] 22.85 kg/m2 Cathy Bella Other [facility] Other 10-27-2021 12:35-0400 Body weight 53.07 kg Cathy Bella Other [facility] Other 10-27-2021 12:35-0400 Diastolic blood pressure 87 mm[Hg] Cathy Bella Other [facility] Other 10-27-2021 12:35-0400 SaO2% (BldA) [Mass fraction] 98 % Cathy Bella Other [facility] Other 10-27-2021 12:35-0400 Systolic blood pressure 130 mm[Hg] Cathy Bella Other [facility] Other 08-14-2021 10:40-0400 Body height 152.4 cm Martha Guevara Other [facility] Other 08-14-2021 10:40-0400 Body mass index (BMI) [Ratio] 22.46 kg/m2 Martha Guevara Other [facility] Other 08-14-2021 10:40-0400 Body temperature 96.7 [degF] Martha Paola Other [facility] Other 08-14-2021 10:40-0400 Body weight 52.16 kg Martha Paola Other [facility] Other 08-14-2021 10:40-0400 Diastolic blood pressure 68 mm[Hg] Martha Paola Other [facility] Other 08-14-2021 10:40-0400 Respiratory rate 20 /min Martha Paola Other [facility] Other 08-14-2021 10:40-0400 SaO2% (BldA) [Mass fraction] 98 % Martha Paola Other [facility] Other 08-14-2021 10:40-0400 Systolic blood pressure 144 mm[Hg] Martha Paola Other [facility] Other Encounters Encounter Date Encounter Type Care Provider Facility Start: 04-02-2023 End: 04-02-2023 ambulatory RAMON CARROLL Not Available Start: 03-27-2023 End: 03-27-2023 ambulatory Cathy Bella Other [facility] Other Start: 03-27-2023 Office outpatient visit 25 minutes Cathy Bella [facility] Start: 03-17-2023 End: 03-17-2023 ambulatory VIRGIL HAYNES [facility] Start: 03-06-2023 End: 03-06-2023 ambulatory JOHN PADILLA Not Available Start: 02-12-2023 End: 02-12-2023 ambulatory JOHN PADILLA Not Available Start: 09-21-2022 End: 09-21-2022 ambulatory Martha Guevara Other [facility] Other Start: 09-21-2022 Office outpatient visit 15 minutes Marthajd Guevara [facility] Start: 09-17-2022 End: 09-17-2022 ambulatory VIRGIL HAYNES [facility] Start: 08-12-2022 End: 08-13-[address] DOE BRIDGES Facility:[facility] Start: 07-23-2022 End: 07-24-[address] RAMON CARROLL Facility:[facility] Start: 07-08-2022 End: 07-09-[address] RAMON CARROLL Facility:[facility] Start: 06-10-2022 End: 06-11-[address] DOE BRIDGES Facility:[facility] Start: 05-10-2022 End: 05-11-[address] DOE BRIDGES Facility:[facility] Start: 04-08-2022 End: 04-09-[address] DOE BRIDGES Facility:[facility] Start: 03-11-2022 End: 03-12-[address] DOCTOR CERNA Facility:[facility] Start: 02-08-2022 End: 02-09-[address] DOE BRIDGES Facility:[facility] Start: 01-28-2022 End: 01-29-[address] DOCTOR CERNA Facility:[facility] Start: 01-12-2022 End: 01-12-2022 ambulatory Cathy Bella Other [facility] Other Start: 01-12-2022 Office outpatient visit 15 minutes Cathy Bella [facility] Start: 01-07-2022 End: 01-07-2022 ambulatory ISATU GUAMAN . Facility:[facility] Start: 01-03-2022 End: 01-04-[address] VIRGIL SWIFT Facility:[facility] Start: 12-28-2021 End: 12-28-2021 ambulatory Martha Guevara Other [facility] Other Start: 12-28-2021 Office outpatient visit 15 minutes Marthajd Guevara [facility] Start: 12-25-2021 End: 12-25-2021 ambulatory Cathy Bella Other [facility] Other Start: 12-25-2021 Office outpatient visit 25 minutes Cathy Bella [facility] Start: 12-05-2021 End: 12-06-[address] DOCTOR MISC Facility:[facility] Start: 11-07-2021 End: 11-08-[address] DOCTOR MISC Facility:[facility] Start: 10-27-2021 End: 10-27-2021 ambulatory Cathy Bella Other [facility] Other Start: 10-27-2021 Office outpatient visit 15 minutes Cathy Shayne [facility] Start: 10-15-2021 End: 10-16-[address] DOCTOR MISC Facility:[facility] Start: 10-08-2021 End: 10-09-[address] DOCTOR MISC Facility:[facility] Start: 09-10-2021 End: 09-11-[address] DOCTOR MISC Facility:[facility] Start: 08-14-2021 End: 08-14-2021 ambulatory Martha Guevara Other [facility] Other Start: 08-14-2021 Office outpatient visit 15 minutes Martha Guevara [facility] Start: 12-31-2017 End: 01-01-2018 Patient encounter VIRGIL HAYNES Facility:[facility] Start: 12-25-2017 End: 12-26-2017 Patient encounter ROSALINDA ROSENBAUM Facility:[facility] Start: 10-30-2017 End: 10-31-2017 Patient encounter ROSALINDA ROSENBAUM Facility:[facility] Start: 10-23-2017 End: 10-24-2017 Patient encounter ROSALINDA ROSENBAUM Facility:[facility] Start: 09-25-2017 End: 09-26-2017 Patient encounter ROSALINDA ROSENBAUM Facility:[facility] Start: 08-26-2017 End: 08-27-2017 Patient encounter ROSALINDA ROSENBAUM Facility:[facility] Start: 07-23-2017 End: 07-24-2017 Patient encounter ROSALINDA ROSENBAUM Facility:[facility] Start: 06-20-2017 End: 06-21-2017 Patient encounter ROSALINDA ROSENBAUM Facility:[facility] Start: 05-27-2017 End: 05-28-2017 Patient encounter ROSALINDA ROSENBAUM Facility:[facility] Start: 04-29-2017 End: 04-30-2017 Patient encounter ROSALINDA ROSENBAUM Facility:[facility] Start: 03-27-2017 End: 03-28-2017 Patient encounter ROSALINDA ROSENBAUM Facility:[facility] Start: 02-26-2017 End: 02-27-2017 Patient encounter DOE BRIDGES Facility:[facility] Procedures Date Procedure Procedure Detail Performing Clinician Start: 08-14-2021 Piperacillin/tazobactam Martha Guevara Other Immunizations Immunization Date Immunization Notes Care Provider Fa kathleen 03-16-2009 influenza virus vaccine, split virus (incl. purified surface antigen) Martha Guevara Other [facility] Other Payers Date Payer Category Payer [facility] [id number] 1959 Self-pay 1959 Unknown [id number] 1956 Unknown [id number] 2.16.8 40.1.262840.3.579.2.647 1956 Unknown [id number] 2.16.8 40.1.667864.3.579.2.647 1956 Unknown [id number] 2.16.8 40.1.404847.3.579.2.647 1956 Unknown [id number] 2.16.8 40.1.671622.3.579.2.647 1956 Unknown [id number] 2.16.8 40.1.958377.3.579.2.647 1956 Unknown [id number] 2.16.8 40.1.122914.3.579.2.647 1956 Unknown [id number] 2.16.8 40.1.395338.3.579.2.647 1956 Unknown [id number] 2.16.8 40.1.540792.3.579.2.647 1956 Unknown [id number] 2.16.8 40.1.146031.3.579.2.647 1956 Unknown [id number] 2.16.8 40.1.109106.3.579.2.647 1956 Unknown [id number] 2.16.8 40.1.921030.3.579.2.647 1956 Unknown [id number] 2.16.8 40.1.769374.3.579.2.647 1956 Unknown [id number] 2.16.84 0.1.915824.3.579.2.593 1956 Unknown [id number] 2.16.84 0.1.209732.3.579.2.593 1956 Unknown [id number] 2.16.84 0.1.495681.3.579.2.593 1956 Unknown [id number] 2.16.84 0.1.096075.3.579.2.593 1956 Unknown [id number] 2.16.84 0.1.850225.3.579.2.593 1956 Unknown [id number] 2.16.84 0.1.980462.3.579.2.593 1956 Unknown [id number] 2.16.84 0.1.191012.3.579.2.593 1956 Unknown [id number] 2.16.84 0.1.686973.3.579.2.593 1956 Unknown [id number] 2.16.84 0.1.593129.3.579.2.593 1956 Unknown [id number] 2.16.84 0.1.427088.3.579.2.593 1956 Unknown [id number] 2.16.84 0.1.519972.3.579.2.593 1956 Unknown [id number] 2.16.84 0.1.319632.3.579.2.593 1956 Unknown [id number] 2.16.84 0.1.626504.3.579.2.593 1956 Unknown [id number] 2.16.84 0.1.419149.3.579.2.593 1956 Unknown [id number] 2.16.84 0.1.339734.3.579.2.593 1956 Unknown [id number] 2.16.840 .1.883416.3.579.2.1259 1956 Unknown [id number] 2.16.840 .1.336712.3.579.2.1259 1956 Unknown [id number] 2.16.840 .1.577224.3.579.2.1259 Unknown [id number] 2.16.84 0.1.045027.3.579.2.593 Social History Date Type Detail Facility Unknown if ever smoked [facility] Other Sex Assigned At Sex Assigned At Bir th [facility] Other Clinical Notes 11-10-2007 to 03-27-2023 Note [...] and rest, Tylenol as directed, rx of [place], cool mist humidifier, throat lozenges. Discussed infection [...] condition. Feb, Sore throat (ICD-10 - J02.9) [facility] Other 12-18-2023 Note03/17/23 Chief Complaint Patient presents with Kidney Follow-up Patient would like to know if Virgil would prescribe depression medication. PCP: Ramon Carroll MD Txp Referring: [facility] [place], [place] - [address] [facility] [address] [id number] [place], [place] - [address] [place] [phone] [facility] - [place], [place] - [address] [place] [address] [address] [facility] [address] Subjective Visit Vitals BP 142/80 (BP Location: Right arm, Patient Position: Sitting) Pulse 63 Temp 36.3 ???C (97.4 ???F) (Oral) Ht 1.524 m (5') Wt 60.6 kg (133 lb 9.6 oz) BMI 26.09 kg/m??? Smoking Status Never BSA 1.6 m??? No Known Allergies Medication Documentation Review Audit Reviewed by Tosha Lagos MA (Lead Radiologic Technologist) on 03/17/23 at 0956 Medication Order Taking? Sig Documenting Provider Last Dose Status amLODIPine (Norvasc) 5 mg tablet [id number] Yes TAKE 1 TABLET BY MOUTH EVERY DAY Virgil Haynes NP Taking Active amoxicillin (Amoxil) 500 mg capsule [id number] No 1 capsule every 8 (eight) hours. Historical Provider, Not Taking Active atorvastatin (Lipitor) 20 mg tablet [id number] Yes TAKE 1 TABLET BY MOUTH EVERY DAY AT BEDTIME Virgil Haynes NP Taking Active baclofen (Lioresal) 10 mg tablet [id number] Yes Historical Provider, Taking Active cyanocobalamin (Vitamin B-12) 500 mcg tablet [id number] No in the morning. Historical Provider, Not Taking Active magnesium oxide (Mag-Ox) 400 mg (241.3 mg magnesium) tablet [id number] Yes Take 400 mg by mouth in the morning. Historical Provider, Taking Active mycophenolate (Myfortic) 180 mg EC tablet [id number] Yes TAKE 4 TABLETS BY MOUTH IN THE MORNING AND AT BEDTIME Doe Bridges MD Taking Active omega-3 fatty acids-fish oil (Fish OiL Extra Strength) 435-880 mg capsule [id number] No 1 capsule 1 (one) time each day at the same time. Historical Provider, Not Taking Active PARoxetine (Paxil) 10 mg tablet [id number] Yes Take 10 mg by mouth in the morning. Historical Provider, Taking Active potassium gluconate 595 mg (99 mg) tablet [id number] No every 12 (twelve) hours. Historical Provider, Not Taking Active spironolactone (Aldactone) 25 mg tablet [id number] Yes TAKE 1 TABLET BY MOUTH EVERY DAY Virgil Haynes NP Taking Active tacrolimus (Prograf) 0.5 mg capsule [id number] Yes TAKE ONE CAPSULE BY MOUTH EVERY MORNING AND 1 CAPSULE EVERY NIGHT AT BEDTIME Anthony Kunz MD Taking Active Immunization History Administered Date(s) Administered iWeebo Sars-Cov-2 Vaccination 06/07/2020 There is no problem [...] since 02/15/23 No documented travel since 02/15/23 LARRY Grimm is a 67 y.o. 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 03/17/23 Pt presents visit with . Pt states labs done Last week in [facility] and [place] calling for results. Pt seeing [place]erm [place] for lesion: forearm and other lesions. Hx: [...] Hgb. Pt AGAIN instructed to use our [facility] Transplant standing order for her monthly labs. Pt reports B/P stable at home Discussed hydration PLan of Care: Continue meds and MONTHLY Labs with [facility] standing Order. Follow up 6 months [...] ; Creat 0.9 ; (more content not included)...[facility]10-18-2023 Note Reviewed Ext Tac 3.6 over the phone with Dr. Vivas, per phone order no changes at this time.[facility]07-14-2023 NoteReviewed labs from 10/09/22, no changes.[facility]06-20-2023 Note 09/17/22 Chief Complaint Patient presents with Kidney Follow-up Patient has no new concerns PCP: Ramon Carroll MD Txp Referring: Preferred Pharmacy: [facility] - [place], [place] - [address] [facility] [address] [id number] - [place], [place] - [address] [facility] [address] [facility] [id number] Subjective Visit Vitals BP 123/81 (BP Location: Right arm, Patient Position: Sitting, BP Cuff Size: Adult) Pulse 77 Temp 36.7 ???C (98.1 ???F) Ht 1.524 m (5') Wt 58.1 kg (128 lb) BMI 25.00 kg/m??? Smoking Status Never BSA 1.57 m??? No Known Allergies Medication Documentation Review Audit Reviewed by LUANN HERNÁNDEZ (Lead Radiologic Technologist) on 09/17/22 at 1019 Medication Order Taking? Sig Documenting Provider Last Dose Status amLODIPine (Norvasc) 5 mg tablet [id number] Take 5 mg by mouth in the morning. Yasmin Mancia MD Active amoxicillin (Amoxil) 500 mg capsule [id number] 1 capsule every 8 (eight) hours. Yasmin Mancia MD Active atorvastatin (Lipitor) 20 mg tablet [id number] Take 20 mg by mouth in the morning. Yasmin Mancia MD Active cyanocobalamin (Vitamin B-12) 500 mcg tablet [id number] in the morning. Yasmin Mancia MD Active magnesium oxide (Mag-Ox) 400 mg (241.3 mg magnesium) tablet [id number] Take 400 mg by mouth in the morning. Yasmin Mancia MD Active mycophenolate (Myfortic) 180 mg EC tablet [id number] Take 4 tablets (720 mg) by mouth in the morning and at bedtime. Patient should take as directed BID Doe Bridges MD Active omega-3 fatty acids-fish oil (Fish OiL Extra Strength) 435-880 mg capsule [id number] 1 capsule 1 (one) time each day at the same time. Yasmin Mancia MD Active potassium gluconate 595 mg (99 mg) tablet [id number] every 12 (twelve) hours. Yasmin Mancia MD Active spironolactone (Aldactone) 25 mg tablet [id number] Take 25 mg by mouth in the morning. Yasmin Mancia MD Active tacrolimus (Prograf) 0.5 mg capsule [id number] Take 1 capsule (0.5 mg) by mouth in the morning and at bedtime. Take 1mg tacrolimus PO Qam and 0.5mg PO Qpm or as directed TDD 2mg, z94.0 Anthony Kunz MD Active tacrolimus (Prograf) 1 mg capsule [id number] Take 1 capsule (1 mg) by mouth [...] 08/17/22 No documented travel since 08/17/22 HPI Niko Grimm is a 66 y.o. female who [...] had intermittent mild bilateral (more content not included)...[facility]10-15-2022 Evaluation note* Encounter Date Diagnosis Assessment [...] understanding and is agreeable with treatment plan [facility] Other 09-30-2022 Evaluation note* Encounter Date Diagnosis [...] no improvement in 2 to 3 days. [facility] Other 09-27-2022 Evaluation note* Encounter Date Diagnosis [...] treatment plan. Patient left in stable condition [facility] Other 07-30-2022 Evaluation note* Encounter Date Diagnosis [...] verbalizes understanding and agrees with treatment plan [facility] Other 05-17-2022 Evaluation note* Encounter Date Diagnosis [...] days July, Hematuria, unspecified (ICD-10 - R31.9) [facility] Other 08-12-2008 History general Narrative - Reported* Type Description Date Medical History PKD found in 1982 when she had a son Medical History hypertension Medical History kidney transplant Surgical History resection of superior cervical mass 11/10/07 Surgical History Teeth extraction in preparation for renal transplant Surgical History portacath placement Surgical History kidney transplant 2013 Hospitalization History see above [facility] Other [facility] Other History general [facility] - [facility] Other Summary Purpose Family History No Family [...] and content) DATE CREATED AUTHOR 01/30/2018 [facility] DATE CREATED AUTHOR AUTHOR'S ORGANIZ ATION 08/17/2021 [facility] DATE CREATED AUTHOR AUTHOR'S ORGANIZ ATION 08/13/2022 [facility] DATE CREATED AUTHOR AUTHOR'S ORGANIZ ATION 04/03/2023 [facility] EPIC DATE CREATED AUTHOR AUTHOR'S ORGANIZ ATION 05/29/2023 [facility] REASON FOR VISIT (unrecogniz ed section and content) DYSURIADYSURIADYSURIAPOSS RA SH ON BACK, ITCHINGDODGE JOURNEY, SORE THROAT, COUGHBLACK DODGE JOURNT SORE THROATIN CAR, MOUTH SORES, CALL [phone] THROAT, COUGHING, DRAINAGE FOR RECORDS PERTAINING TO [...] BE BASED ON THE PRIMARY CLINICAL RECORDS. [facility]. provides no warranty or guarantee of the accuracy or completeness of information in this document.
[2023-06-11 06:58] LABS: Basophils Percent Auto 0.3 % (0.2-2.0); Eosinophils Absolute Auto 0.1 10^3/uL (0.0-0.7); Eosinophils Percent Auto 1.9 % (0.9-7.0); Hematocrit 43.8 % (36.0-48.0); Hemoglobin 13.9 g/dL (12.0-16.0); Immature Granulocytes Abs Auto 0.01 10^3/uL (0.00-0.03); Immature Granulocytes Pct Auto 0.1 % (0.0-0.5); Lymphocytes Absolute Auto 1.3 10^3/uL (1.2-3.8); Lymphocytes Percent Auto 18.6 % (20.5-60.0); Mean Corpuscular HGB Conc 31.7 g/dL (29.9-35.2); Mean Corpuscular Hemoglobin 30.7 pg (26.7-34.0); Mean Corpuscular Volume 96.7 fL (81.0-99.0); Mean Platelet Volume 11.6 fL (9.5-13.5); Monocytes Absolute Auto 0.8 10^3/uL (0.3-0.8); Monocytes Percent Auto 11.1 % (1.7-12.0); Neutrophils Absolute Auto 4.9 10^3/uL (1.4-6.5); Platelet Count 214 10^3/uL (150-450); Red Blood Count 4.53 10^6/uL (4.20-5.40); Red Cell Distribution Width 14.9 % (11.0-15.0); White Blood Count 7.2 10^3/uL (4.0-11.0)
[2023-06-11 07:11] LABS: Alanine Aminotransferase 17 U/L (14-59); Albumin Level 3.5 g/dL (3.4-5.0); Alkaline Phosphatase 131 U/L (46-116); Anion Gap 12.7; Aspartate Amino Transferase 12 U/L (15-37); BUN Creatinine Ratio 16.8; Bilirubin Direct 0.1 mg/dL (0.0-0.2); Bilirubin Total 0.6 mg/dL (0.2-1.0); Calcium 9.1 mg/dL (8.5-10.1); Carbon Dioxide 29.2 mmol/L (21.0-32.0); Chloride 105 mmol/L (98-107); Chol HDL Ratio 2.4; Cholesterol 118 mg/dL (<=200); Estimated GFR (African America >60 (>=60); Estimated GFR (Non-African Ame 59 (>=60); Globulin 3.6 g/dL; Glucose 91 mg/dL (74-106); HDL Cholesterol 49 mg/dL (40-60); LDL Cholesterol Calculated 51.8 mg/dL; Magnesium 1.9 mg/dL (1.8-2.4); Phosphorus 3.3 mg/dL (2.6-4.7); Potassium 3.9 mmol/L (3.5-5.1); Sodium 143 mmol/L (136-145); Total Protein 7.1 g/dL (6.4-8.2); Triglycerides 86 mg/dL (<=150); Uric Acid 5.3 mg/dL (2.6-6.0); VLDL CHOLESTEROL 17.2 mg/dL
[2023-06-11 07:17] LABS: Estimated Average Glucose 114 mg/dL; Glycohemoglobin A1C 5.6 % (4.5-6.2)
[2023-06-13 14:09] LABS: BKV DNA, Quant PCR, Plasma Negative (Negative)
[2023-06-14 08:14] LABS: Tacrolimus (FK506), Blood 3.8 ng/mL (2.0-20.0)
== END 2023-06-11 06:39 | disposition home or self-care (01) ==
LOC: LAB 06:40
PROVIDERS: PCP Internal Medicine
DX: Z48.298 Encounter for aftercare following other organ transplant (principal); Z79.899 Other long term (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 therapy; Z94.0 Kidney transplant status
CPT/HCPCS: 36415; 80053; 80061; 80197; 82248; 83036; 83735; 84100; 84550; 85025; 87799

== ENCOUNTER 2023-07-14 06:37 | Outpatient (OUT) | payer MEDICARE, SELFPAY ==
--- OUTSIDE RECORDS SUMMARY | 2023-07-14 06:41 | XMS_ITS | CCD ---
Author Organization [facility] Care Team Providers Care Provider Network Manager Name Role Phone BEAR RIVER, DINKAR Unavailable Unavailable BEAR RIVER, DINKAR Unavailable Unavailable CARROLL, RAMON Unavailable Unavailable [...] Unavailable Martha Guevara Unavailable Cathy Bella Unavailable DR VIRGIL SWIFT Consulting Unavailable NADERER, DR VIRGIL Palma Attending Unavailable CARROLL, DR [...] Attending Unavailable MISC, DR OBRIEN Admitting Unavailable BEAR RIVER, DR CONNORS Consulting Unavailable CARROLL, DR DARBY Primary Care Unavailable MISC, DR OBRIEN Attending Unavailable MISC, DR OBRIEN Admitting Unavailable MISC, DR OBRIEN Attending Unavailable MISC, DR OBRIEN Admitting Unavailable MISC, DR OBRIEN Consulting Unavailable CARROLL, DR DARBY Primary Care Unavailable BEAR RIVER, DR CONNORS Consulting Unavailable BEAR RIVER, DR CONNORS Attending Unavailable CARROLL, DR DARBY Primary Care Unavailable BEAR RIVER, DR CONNORS Admitting Unavailable BEAR RIVER, DR CONNORS Attending Unavailable CARROLL, DR DARBY Primary Care Unavailable BEAR RIVER, DR CONNORS Admitting Unavailable BEAR RIVER, DR CONNORS Consulting Unavailable MISC, DR OBRIEN Attending Unavailable MISC, DR OBRIEN Admitting Unavailable CARROLL, DR DARBY Primary Care Unavailable MISC, DR OBRIEN Consulting Unavailable MISC, DR OBRIEN Consulting Unavailable MISC, DR OBRIEN Attending Unavailable MISC, DR OBRIEN Admitting Unavailable CARROLL, DR DABRY Primary Care Unavailable MISC, DOCTOR Attending Unavailable MISC, DOCTOR Admitting Unavailable MISC, DR OBRIEN Consulting Unavailable CARROLL, DR DARBY Primary Care Unavailable MISC, DR OBRIEN Attending Unavailable MISC, DR OBRIEN Admitting Unavailable MISC, DR OBRIEN Consulting Unavailable CARROLL, DR DARBY Primary Care Unavailable BEAR RIVER, DR CONNORS Consulting Unavailable BEAR RIVER, DR CONNORS Attending Unavailable CARROLL, DR DARBY Primary Care Unavailable BEAR RIVER, DR CONNORS Admitting Unavailable MISC, DR OBRIEN Attending Unavailable MISC, DR OBRIEN Admitting Unavailable MISC, DR OBRIEN Consulting Unavailable CARROLL, DR DARBY Primary Care Unavailable MISC, DOCTOR Attending Unavailable MISC, DR OBRIEN Admitting Unavailable MISC, DR DOCTOR Consulting Unavailable DR RAMON CARROLL Primary Care Unavailable BEAR RIVER, DR CONNORS Consulting Unavailable BEAR RIVER, DR CONNORS Attending Unavailable BEAR RIVER, DR CONNORS Admitting Unavailable DR RAMON CARROLL Primary Care Unavailable RAMON CARROLL Attending Unavailable JOHN PADILLA Attending Unavailable JOHN PADILLA Attending Unavailable VIRGIL HAYNES Attending Unavailable VIRGIL HAYNES Attending Unavailable Medications Current Medications Medication Drug Class(es) Dates Sig (Normalized) Sig (Original) [id number] 200 actuat albuterol 0.09 mg/actuat metered dose [...] 1.5 mg/ml oral solution (1 source) Uncompetitive S-yhtggv-W-aspartate Receptor Antagonist, Sigma-1 Agonist Start: 03-27-20 23 take 10 mL by mouth every eight hours [place] DM 7.5-7.5 MG/5ML 10 mL Orally every 8 hours for 5 days Feb, Active ergocalciferol 1.25 mg oral capsule (9 sources) Provitamin D2 Compound Start: 06-27-19 12 take 1 capsule by mouth every week Vitamin D (Ergocalciferol) 33235 UNIT 1 capsule Orally Once a Week [...] Start: 12-25-2021 take [address] [facility] every eight hours Tessalon Perles 100 [...] 03-27-2017 Episodic Other aftercare (2 sources) Other [facility] (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 therapy; Translations: [OTHER CUSTODIAL (CURRENT) DRUG THERAPY] Onset: 02-26-2017 Episodic Other [...] Interpretation Reference Range Facility Documentationon 05-19-2023 Documentation [id number] Tanika Grimm 1955 F Date Provider Department Center 05/19/2023 ANEL HELLER TXGely None No family history on file Normal [facility] COVID/FLU/RSV RT-PCRon 03-27 SARS-CoV-2 (COVID-19) RNA MURALI+probe Ql (Unsp spec) Negative [facility] Other COVID/FLU/RSV RT-PCR Negative [facility] Other Quick Strepon 03-27-2023 S. pyogenes Org specific cx Ql (Throat) Negative [facility] Other Quick Strep [facility] Other 29on 03-17-2023 29 Addended by: TOSHA LAGOS on: 03/17/2023 11:44 AM Modules accepted: Orders Normal [facility] Follow-Upon 03-17-2023 Follow-Up [id number] Tanika Grimm 1955 F Date Provider Department Center 03/17/2023 VIRGIL HAYES TXP None No family history on file Level of Service:12466 [place] OFFICE/OUTPATIENT ESTABLISHED LOW MDM 20 MIN Reason for Visit and Comments: Kidney Follow-up [[id number]] - Patient would like to know if Virgil would prescribe depression medication. Normal [facility] 36on 01-31-2023 36 Transplant Pharmacis t - [...] need for taper. The patient's verbalized understanding. Licensed Practical Nurse added medication to med list. The patient's stated patient will be getting a DEXA scan and recommended to not have calcium 3 days before. Reviewed medication list for any products containing calcium - no medications found. No other questions or concerns at this time. Normal [facility] Telephoneon 01-31-2023 Telephone [id number] Tanika Grimm 1955 F Date Provider Department Center 01/31/2023 3915-JAH PAGE TXP None No family history on file Reason for Visit and Comments: Transplant Pharmacist - Drug Information [[id number]] [facility] Documentationon 10-09-2022 Documentation [id number] Tanika Grimm 1955 F Date Provider Department Center 10/09/2022 3193-KATY CRUZ TXP None No family history on file Normal [facility] 29on 09-17-2022 29 Addended by: FERNANDA NAGEL on: 09/17/2022 12:16 PM Modules accepted: Orders Normal [facility] CREATININE, URINE, RANDOMon 09-17-2022 Creatinine (U) [Mass/Vol] 252.0 mg/dL Normal 26-299 [facility] Comment on above: Performed By: #### L [id number] ####[facility] ([facility])[address] [place] [address] Follow-Upon 09-17-2022 Follow-Up [id number] Tanika Grimm 1955 Provider Department Center 09/17/2022 124-VIRGIL HAYNES TXP None No family history on file Level of Service:09374 [place] OFFICE/OUTPATIENT ESTABLISHED LOW MDM 20-29 MIN Reason for Visit and Comments: Kidney Follow-up [] - Patient has no new concerns Normal [facility] PROTEIN, URINE, RANDOMon Protein (U) [Mass/Vol] 29.5 mg/dL Normal [facility] Comment on above: Result Comment: Ther e are no established reference values for random urine specimens. Performed By: #### L [id number] ####[facility] ([facility])[address] [place] [address] Documentationon 08-15-2022 Documentation [id number] Tanika Grimm 1955 Provider Department Center 08/15/2022 3193-KATY CRUZ TXP None No family history on file Normal [facility] BILIRUBIN CONJUGATED (DIRECT )on 08-12-2022 BILI, CONJUGATED 0.1 mg/dL Normal 0.0-0.2 [facility] Comment on above: Performed By: #### D DAVIDSON, MG, PHOS, CMP, LIPID, URIC #### [facility] [address] [address] [address] Sarmad Patino GLYCOHEMOGLOBIN A1Con 2022 ADA RECOMMENDATION SEE BELOW Normal [facility] Comment on above: Result Comment: ADA RECOMMENDED LIMIT 4.0 - 6.0 ADA THERAPEUTIC TARGET < 7.0 ACTION SUGGESTED > 7.0 Performed By: #### D DAVIDSON, MG, PHOS, CMP, LIPID, URIC #### [facility] [address] [address] [address] Sarmad Patino Glucose [Mass/Vol] 108 mg/dL Normal [facility] Comment on above: Performed By: #### D DAVIDSON, MG, PHOS, CMP, LIPID, URIC #### [facility] [address] [address] [address] Sarmad Patino HbA1c (Bld) [Mass fraction] 5.4 % Normal 4.5-6.2 [facility] Comment on above: Performed By: #### D DAVIDSON, MG, PHOS, CMP, LIPID, URIC #### [facility] [address] [address] [address] Sarmad Patino MAGNESIUMon 08-12-2022 Magnesium [Mass/Vol] 1.7 mg/dL Critically low 1.8-2.4 [facility] Comment on above: Performed By: #### D DAVIDSON, MG, PHOS, CMP, LIPID, URIC #### [facility] [address] [place] [address] Dr. Sarmad Patino PHOSPHORUSon 08-12-2022 Phosphate [Mass/Vol] 3.9 mg/dL Normal 2.6-4.7 [facility] Comment on above: Performed By: #### U MAXI, LIPID, MG, CMP, DBIL, PHOS #### [facility] [address] [place] [address] Dr. Sarmad Patino PROF 14(COMP METB)on 023 Albumin [Mass/Vol] 3.9 g/dL Normal 3.4-5.0 [facility] Comment on above: Performed By: #### D DAVIDSON, MG, PHOS, CMP, LIPID, URIC #### [facility] [address] [place] [address] Dr. Sarmad Patino Albumin/Globulin [Mass ratio] 1.2 {ratio} Normal [facility] Comment on above: Performed By: #### D DAVIDSON, MG, PHOS, CMP, LIPID, URIC #### [facility] [address] [place] [address] Dr. Sarmad Patino ALP [Catalytic activity/Vol] 126 U/L Critically high 46-116 [facility] Comment on above: Performed By: #### D DAVIDSON, MG, PHOS, CMP, LIPID, URIC #### [facility] [address] [place] [address] Dr. Sarmad Patino ALT [Catalytic activity/Vol] 18 U/L Normal 14-59 [facility] Comment on above: Performed By: #### D DAVIDSON, MG, PHOS, CMP, LIPID, URIC #### [facility] [address] [address] [address] Sarmad Patino Anion gap [Moles/Vol] 10.4 mmol/L Normal [facility] Comment on above: Performed By: #### D DAVIDSON, MG, PHOS, CMP, LIPID, URIC #### [facility] [address] [place] [address] Dr. Sarmad Patino AST [Catalytic activity/Vol] 14 U/L Critically low 15-37 [facility] Comment on above: Performed By: #### D DAVIDSON, MG, PHOS, CMP, LIPID, URIC #### [facility] [address] [place] [address] Dr. Sarmad Patino Bilirubin [Mass/Vol] 0.7 mg/dL Normal 0.2-1.0 [facility] Comment on above: Performed By: #### D DAVIDSON, MG, PHOS, CMP, LIPID, URIC #### [facility] [address] [place] [address] Dr. Sarmad Patino Calcium [Mass/Vol] 9.8 mg/dL Normal 8.5-10.1 [facility] Comment on above: Performed By: #### D DAVIDSON, MG, PHOS, CMP, LIPID, URIC #### [facility] [address] [place] [address] Dr. Sarmad Patino Chloride [Moles/Vol] 106 mmol/L Normal 98-107 [facility] Comment on above: Performed By: #### D DAVIDSON, MG, PHOS, CMP, LIPID, URIC #### [facility] [address] [place] [address] Dr. Sarmad Patino CO2 [Moles/Vol] 32.1 mmol/L Critically high 21.0-32.0 [facility] Comment on above: Performed By: #### D DAVIDSON, MG, PHOS, CMP, LIPID, URIC #### [facility] [address] [place] [address] Dr. Sarmad Patino Creatinine [Mass/Vol] 0.92 mg/dL Normal 0.55-1.02 [facility] Comment on above: Performed By: #### D DAVIDSON, MG, PHOS, CMP, LIPID, URIC #### [facility] [address] [address] [address] Sarmad Patino EGFR-AF KOSOVAN >60 Normal >=60 [facility] Comment on above: Performed By: #### D DAVIDSON, MG, PHOS, CMP, LIPID, URIC #### [facility] [address] [address] [address] Sarmad Patino EGFR-NON AF KOSOVAN >60 Normal >=60 [facility] Comment on above: Performed By: #### D DAVIDSON, MG, PHOS, CMP, LIPID, URIC #### [facility] [address] [place] [address] Dr. Sarmad Patino Globulin (S) [Mass/Vol] 3.3 g/dL Normal [facility] Comment on above: Performed By: #### D DAVIDSON, MG, PHOS, CMP, LIPID, URIC #### [facility] [address] [address] [address] Sarmad Patino Glucose [Mass/Vol] 102 mg/dL Normal 74-106 [facility] Comment on above: Performed By: #### D DAVIDSON, MG, PHOS, CMP, LIPID, URIC #### [facility] [address] [place] [address] Dr. Sarmad Patino Potassium [Moles/Vol] 4.5 mmol/L Normal 3.5-5.1 [facility] Comment on above: Performed By: #### D DAVIDSON, MG, PHOS, CMP, LIPID, URIC #### [facility] [address] [place] [address] Dr. Sarmad Patino Protein [Mass/Vol] 7.2 g/dL Normal 6.4-8.2 [facility] Comment on above: Performed By: #### D DAVIDSON, MG, PHOS, CMP, LIPID, URIC #### [facility] [address] [address] [address] Sarmad Patino Sodium [Moles/Vol] 144 mmol/L Normal 136-145 [facility] Comment on above: Performed By: #### D DAVIDSON, MG, PHOS, CMP, LIPID, URIC #### [facility] [address] [address] [address] Sarmad Patino Urea nitrogen [Mass/Vol] 20.0 mg/dL Critically high 7.0-18.0 [facility] Comment on above: Performed By: #### D DAVIDSON, MG, PHOS, CMP, LIPID, URIC #### [facility] [address] [address] [address] Sarmad Patino Urea nitrogen/Creatinine [Mass ratio] 21.7 mg/mg Normal [facility] Comment on above: Performed By: #### D DAVIDSON, MG, PHOS, CMP, LIPID, URIC #### [facility] [address] [address] [address] Sarmad Patino URIC ACID SERUMon 08-12-2022 Urate [Mass/Vol] 5.2 mg/dL Normal 2.6-6.0 [facility] Comment on above: Performed By: #### D DAVIDSON, MG, PHOS, CMP, LIPID, URIC #### [facility] [address] [address] [address] Sarmad Patino MG MAMM SCREEN 3D DAVIDSON CADon 07-23-2022 MG MAMM SCREEN 3D DAVIDSON CAD Patient: TANIKA GRIMM Exam Date: 07/23/2022 : 1955 Gender:F Ordering : DR RAMON CARROLL M.D. Admission #: [id number] Family : Order #: [id number] CLICK HERE TO VIEW EXAM RADIOLOGY REPORT [...] Treatments None Family Cancers None LOCATION: [facility] BREAST COMPOSITION: Extremely dense, which [...] M.D. on 07/23/2022 at 16:59 Normal [facility] FK506 (TACROLIMUS) WHOLE BLO ODon 07-10-2022 Tacrolimus (FK506), Blood 3.8 ng/mL Normal 2.0-20.0 [facility] Comment on above: Result Comment: Trou gh (immediately following transplant) 15.0 . Trough (steady state, 2 weeks or more after transplant): 3.0 - 8.0 . Performed by LC-MS/MS technology. Performed By: #### D DAVIDSON, MG, PHOS, CMP, LIPID, URIC #### [facility] [address] [place] [address] Dr. Sarmad Patino BILIRUBIN CONJUGATED (DIRECT )on 07-08-2022 BILI, CONJUGATED 0.1 mg/dL Normal 0.0-0.2 [facility] Comment on above: Performed By: #### U MAXI, LIPID, MG, CMP, DBIL, PHOS #### [facility] [address] [address] [address] Sarmad Patino GLYCOHEMOGLOBIN A1Con 2022 ADA RECOMMENDATION SEE BELOW Normal [facility] Comment on above: Result Comment: ADA RECOMMENDED LIMIT 4.0 - 6.0 ADA THERAPEUTIC TARGET < 7.0 ACTION SUGGESTED > 7.0 Performed By: #### D DAVIDSON, MG, PHOS, CMP, LIPID, URIC #### [facility] [address] [address] [address] Sarmad Patino Glucose [Mass/Vol] 105 mg/dL Normal [facility] Comment on above: Performed By: #### D DAVIDSON, MG, PHOS, CMP, LIPID, URIC #### [facility] [address] [address] [address] Sarmad Patino HbA1c (Bld) [Mass fraction] 5.3 % Normal 4.5-6.2 [facility] Comment on above: Performed By: #### D DAVIDSON, MG, PHOS, CMP, LIPID, URIC #### [facility] [address] [place] [address] Dr. Sarmad Patino MAGNESIUMon 07-08-2022 Magnesium [Mass/Vol] 1.8 mg/dL Normal 1.8-2.4 [facility] Comment on above: Performed By: #### U MAXI, LIPID, MG, CMP, DBIL, PHOS #### [facility] [address] [place] [address] Dr. Sarmad Patino PHOSPHORUSon 07-08-2022 Phosphate [Mass/Vol] 3.8 mg/dL Normal 2.6-4.7 [facility] Comment on above: Performed By: #### U MAXI, LIPID, MG, CMP, DBIL, PHOS #### [facility] [address] [place] [address] Dr. Sarmad Patino PROF 14(COMP METB)on 023 Albumin [Mass/Vol] 3.7 g/dL Normal 3.4-5.0 [facility] Comment on above: Performed By: #### U MAXI, LIPID, MG, CMP, DBIL, PHOS #### [facility] [address] [place] [address] Dr. Sarmad Patino Albumin/Globulin [Mass ratio] 1.1 {ratio} Normal [facility] Comment on above: Performed By: #### U MAXI, LIPID, MG, CMP, DBIL, PHOS #### [facility] [address] [place] [address] Dr. Sarmad Patino ALP [Catalytic activity/Vol] 124 U/L Critically high 46-116 [facility] Comment on above: Performed By: #### U MAXI, LIPID, MG, CMP, DBIL, PHOS #### [facility] [address] [place] [address] Dr. Sarmad Patino ALT [Catalytic activity/Vol] 20 U/L Normal 14-59 [facility] Comment on above: Performed By: #### U MAXI, LIPID, MG, CMP, DBIL, PHOS #### [facility] [address] [address] [address] Sarmad Patino Anion gap [Moles/Vol] 11.5 mmol/L Normal [facility] Comment on above: Performed By: #### U MAXI, LIPID, MG, CMP, DBIL, PHOS #### [facility] [address] [address] [address] Sarmad Patino AST [Catalytic activity/Vol] 12 U/L Critically low 15-37 [facility] Comment on above: Performed By: #### U MAXI, LIPID, MG, CMP, DBIL, PHOS #### [facility] [address] [place] [address] Dr. Sarmad Patino Bilirubin [Mass/Vol] 0.5 mg/dL Normal 0.2-1.0 [facility] Comment on above: Performed By: #### U MAXI, LIPID, MG, CMP, DBIL, PHOS #### [facility] [address] [place] [address] Dr. Sarmad Patino Calcium [Mass/Vol] 9.6 mg/dL Normal 8.5-10.1 [facility] Comment on above: Performed By: #### U MAXI, LIPID, MG, CMP, DBIL, PHOS #### [facility] [address] [place] [address] Dr. Sarmad Patino Chloride [Moles/Vol] 106 mmol/L Normal 98-107 [facility] Comment on above: Performed By: #### U MAXI, LIPID, MG, CMP, DBIL, PHOS #### [facility] [address] [place] [address] Dr. Sarmad Patino CO2 [Moles/Vol] 29.7 mmol/L Normal 21.0-32.0 [facility] Comment on above: Performed By: #### U MAXI, LIPID, MG, CMP, DBIL, PHOS #### [facility] [address] [place] [address] Dr. Sarmad Patino Creatinine [Mass/Vol] 0.77 mg/dL Normal 0.55-1.02 [facility] Comment on above: Performed By: #### U MAXI, LIPID, MG, CMP, DBIL, PHOS #### [facility] [address] [address] [address] Sarmad Patino EGFR-AF KOSOVAN >60 Normal >=60 [facility] Comment on above: Performed By: #### U MAXI, LIPID, MG, CMP, DBIL, PHOS #### [facility] [address] [place] [address] Dr. Sarmad Patino EGFR-NON AF KOSOVAN >60 Normal >=60 [facility] Comment on above: Performed By: #### U MAXI, LIPID, MG, CMP, DBIL, PHOS #### [facility] [address] [place] [address] Dr. Sarmad Patino Globulin (S) [Mass/Vol] 3.4 g/dL Normal [facility] Comment on above: Performed By: #### U MAXI, LIPID, MG, CMP, DBIL, PHOS #### [facility] [address] [place] [address] Dr. Sarmad Patino Glucose [Mass/Vol] 97 mg/dL Normal 74-106 [facility] Comment on above: Performed By: #### U MAXI, LIPID, MG, CMP, DBIL, PHOS #### [facility] [address] [place] [address] Dr. Sarmad Patino Potassium [Moles/Vol] 4.2 mmol/L Normal 3.5-5.1 [facility] Comment on above: Performed By: #### U MAXI, LIPID, MG, CMP, DBIL, PHOS #### [facility] [address] [address] [address] Sarmad Patino Protein [Mass/Vol] 7.1 g/dL Normal 6.4-8.2 [facility] Comment on above: Performed By: #### U MAXI, LIPID, MG, CMP, DBIL, PHOS #### [facility] [address] [place] [address] Dr. Sarmad Patino Sodium [Moles/Vol] 143 mmol/L Normal 136-145 [facility] Comment on above: Performed By: #### U MAXI, LIPID, MG, CMP, DBIL, PHOS #### [facility] [address] [place] [address] Dr. Sarmad Patino Urea nitrogen [Mass/Vol] 26.0 mg/dL Critically high 7.0-18.0 [facility] Comment on above: Performed By: #### U MAXI, LIPID, MG, CMP, DBIL, PHOS #### [facility] [address] [place] [address] Dr. Sarmad Patino Urea nitrogen/Creatinine [Mass ratio] 33.8 mg/mg Normal [facility] Comment on above: Performed By: #### U MAXI, LIPID, MG, CMP, DBIL, PHOS #### [facility] [address] [place] [address] Dr. Sarmad Patino URIC ACID SERUMon 07-08-2022 Urate [Mass/Vol] 4.7 mg/dL Normal 2.6-6.0 [facility] Comment on above: Performed By: #### U MAXI, LIPID, MG, CMP, DBIL, PHOS #### [facility] [address] [place] [address] Dr. Sarmad Patino FK506 (TACROLIMUS) WHOLE BLO ODon 06-13-2022 Tacrolimus (FK506), Blood 3.0 ng/mL Normal 2.0-20.0 [facility] Comment on above: Result Comment: Trou gh (immediately following transplant) 15.0 . Trough (steady state, 2 weeks or more after transplant): 3.0 - 8.0 . Performed by LC-MS/MS technology. Performed By: #### D DAVIDSON, MG, PHOS, CMP, LIPID, URIC #### [facility] [address] [place] [address] Dr. Sarmad Patino BK VIRUS PCR QUANTon 023 BKV DNA QUANT PCR PLASMA Negative Normal Negative [facility] Comment on above: Result Comment: No B K DNA detected. . The linear range of the assay is 22 - 100,000,000 IU/mL. Performed By: #### B KVIRUS #### [facility] [address] [place] [address] Dr. Sarmad Patino Log10 BKV DNA Plasma Normal [facility] Comment on above: Performed By: #### B KVIRUS #### [facility] [address] [place] [address] Dr. Sarmad Patino BILIRUBIN CONJUGATED (DIRECT )on 06-10-2022 BILI, CONJUGATED 0.1 mg/dL Normal 0.0-0.2 [facility] Comment on above: Performed By: #### U MAXI, LIPID, MG, CMP, DBIL, PHOS #### [facility] [address] [place] [address] Dr. Sarmad Patino GLYCOHEMOGLOBIN A1Con 2022 ADA RECOMMENDATION SEE BELOW Normal [facility] Comment on above: Result Comment: ADA RECOMMENDED LIMIT 4.0 - 6.0 ADA THERAPEUTIC TARGET < 7.0 ACTION SUGGESTED > 7.0 Performed By: #### D DAVIDSON, MG, PHOS, CMP, LIPID, URIC #### [facility] [address] [place] [address] Dr. Sarmad Patino Glucose [Mass/Vol] 114 mg/dL Normal [facility] Comment on above: Performed By: #### D DAVIDSON, MG, PHOS, CMP, LIPID, URIC #### [facility] [address] [place] [address] Dr. Sarmad Patino HbA1c (Bld) [Mass fraction] 5.6 % Normal 4.5-6.2 [facility] Comment on above: Performed By: #### D DAVIDSON, MG, PHOS, CMP, LIPID, URIC #### [facility] [address] [place] [address] Dr. Sarmad Patino MAGNESIUMon 06-10-2022 Magnesium [Mass/Vol] 1.6 mg/dL Critically low 1.8-2.4 [facility] Comment on above: Performed By: #### U MAXI, LIPID, MG, CMP, DBIL, PHOS #### [facility] [address] [place] [address] Dr. Sarmad Patino PROF 14(COMP METB)on 023 Albumin [Mass/Vol] 3.7 g/dL Normal 3.4-5.0 [facility] Comment on above: Performed By: #### U MAXI, LIPID, MG, CMP, DBIL, PHOS #### [facility] [address] [address] [address] Sarmad Patino Albumin/Globulin [Mass ratio] 1.1 {ratio} Normal [facility] Comment on above: Performed By: #### U MAXI, LIPID, MG, CMP, DBIL, PHOS #### [facility] [address] [place] [address] Dr. Sarmad Patino ALP [Catalytic activity/Vol] 142 U/L Critically high 46-116 [facility] Comment on above: Performed By: #### U MAXI, LIPID, MG, CMP, DBIL, PHOS #### [facility] [address] [place] [address] Dr. Sarmad Patino ALT [Catalytic activity/Vol] 29 U/L Normal 14-59 [facility] Comment on above: Performed By: #### U MAXI, LIPID, MG, CMP, DBIL, PHOS #### [facility] [address] [place] [address] Dr. Sarmad Patino Anion gap [Moles/Vol] 11.1 mmol/L Normal [facility] Comment on above: Performed By: #### U MAXI, LIPID, MG, CMP, DBIL, PHOS #### [facility] [address] [place] [address] Dr. Sarmad Patino AST [Catalytic activity/Vol] 19 U/L Normal 15-37 [facility] Comment on above: Performed By: #### U MAXI, LIPID, MG, CMP, DBIL, PHOS #### [facility] [address] [place] [address] Dr. Sarmad Patino Bilirubin [Mass/Vol] 0.6 mg/dL Normal 0.2-1.0 [facility] Comment on above: Performed By: #### U MAXI, LIPID, MG, CMP, DBIL, PHOS #### [facility] [address] [place] [address] Dr. Sarmad Patino Calcium [Mass/Vol] 9.8 mg/dL Normal 8.5-10.1 [facility] Comment on above: Performed By: #### U MAXI, LIPID, MG, CMP, DBIL, PHOS #### [facility] [address] [address] [address] Sarmad Patino Chloride [Moles/Vol] 103 mmol/L Normal 98-107 [facility] Comment on above: Performed By: #### U MAXI, LIPID, MG, CMP, DBIL, PHOS #### [facility] [address] [address] [address] Sarmad Patino CO2 [Moles/Vol] 30.7 mmol/L Normal 21.0-32.0 [facility] Comment on above: Performed By: #### U MAXI, LIPID, MG, CMP, DBIL, PHOS #### [facility] [address] [place] [address] Dr. Sarmad Patino Creatinine [Mass/Vol] 0.79 mg/dL Normal 0.55-1.02 [facility] Comment on above: Performed By: #### U MAXI, LIPID, MG, CMP, DBIL, PHOS #### [facility] [address] [address] [address] Sarmad Patino EGFR-AF KOSOVAN >60 Normal >=60 [facility] Comment on above: Performed By: #### U MAXI, LIPID, MG, CMP, DBIL, PHOS #### [facility] [address] [place] [address] Dr. Sarmad Patino EGFR-NON AF KOSOVAN >60 Normal >=60 [facility] Comment on above: Performed By: #### U MAXI, LIPID, MG, CMP, DBIL, PHOS #### [facility] [address] [address] [address] Sarmad Patino Globulin (S) [Mass/Vol] 3.4 g/dL Normal [facility] Comment on above: Performed By: #### U MAXI, LIPID, MG, CMP, DBIL, PHOS #### [facility] [address] [address] [address] Sarmad Patino Glucose [Mass/Vol] 94 mg/dL Normal 74-106 [facility] Comment on above: Performed By: #### U MAXI, LIPID, MG, CMP, DBIL, PHOS #### [facility] [address] [place] [address] Dr. Sarmad Patino Potassium [Moles/Vol] 3.8 mmol/L Normal 3.5-5.1 [facility] Comment on above: Performed By: #### U MAXI, LIPID, MG, CMP, DBIL, PHOS #### [facility] [address] [place] [address] Dr. Sarmad Patino Protein [Mass/Vol] 7.1 g/dL Normal 6.4-8.2 [facility] Comment on above: Performed By: #### U MAXI, LIPID, MG, CMP, DBIL, PHOS #### [facility] [address] [place] [address] Dr. Sarmad Patino Sodium [Moles/Vol] 141 mmol/L Normal 136-145 [facility] Comment on above: Performed By: #### U MAXI, LIPID, MG, CMP, DBIL, PHOS #### [facility] [address] [place] [address] Dr. Sarmad Patino Urea nitrogen [Mass/Vol] 17.0 mg/dL Normal 7.0-18.0 [facility] Comment on above: Performed By: #### U MAXI, LIPID, MG, CMP, DBIL, PHOS #### [facility] [address] [place] [address] Dr. Sarmad Patino Urea nitrogen/Creatinine [Mass ratio] 21.5 mg/mg Normal [facility] Comment on above: Performed By: #### U MAXI, LIPID, MG, CMP, DBIL, PHOS #### [facility] [address] [place] [address] Dr. Sarmad Patino URIC ACID SERUMon 06-10-2022 Urate [Mass/Vol] 5.1 mg/dL Normal 2.6-6.0 [facility] Comment on above: Performed By: #### U MAXI, LIPID, MG, CMP, DBIL, PHOS #### [facility] [address] [place] [address] Dr. Sarmad Patino BK VIRUS PCR QUANTon 023 BKV DNA QUANT PCR PLASMA Negative Normal Negative [facility] Comment on above: Result Comment: No B K DNA detected. . The linear range of the assay is 22 - 100,000,000 IU/mL. Performed By: #### U MAXI, LIPID, MG, CMP, DBIL, PHOS #### [facility] [address] [place] [address] Dr. Sarmad Patino Log10 BKV DNA Plasma Normal [facility] Comment on above: Performed By: #### U MAXI, LIPID, MG, CMP, DBIL, PHOS #### [facility] [address] [address] [address] Sarmad Patino FK506 (TACROLIMUS) WHOLE BLO ODon 05-13-2022 Tacrolimus (FK506), Blood 4.1 ng/mL Normal 2.0-20.0 [facility] Comment on above: Result Comment: Trou gh (immediately following transplant) 15.0 . Trough (steady state, 2 weeks or more after transplant): 3.0 - 8.0 . Performed by LC-MS/MS technology. Performed By: #### U MAXI, LIPID, MG, CMP, DBIL, PHOS #### [facility] [address] [place] [address] Dr. Sarmad Patino BILIRUBIN CONJUGATED (DIRECT )on 05-10-2022 BILI, CONJUGATED 0.1 mg/dL Normal 0.0-0.2 [facility] Comment on above: Performed By: #### D DAVIDSON, MG, PHOS, CMP, LIPID, URIC #### [facility] [address] [address] [address] Sarmad Patino GLYCOHEMOGLOBIN A1Con 2022 ADA RECOMMENDATION SEE BELOW Normal [facility] Comment on above: Result Comment: ADA RECOMMENDED LIMIT 4.0 - 6.0 ADA THERAPEUTIC TARGET < 7.0 ACTION SUGGESTED > 7.0 Performed By: #### D DAVIDSON, MG, PHOS, CMP, LIPID, URIC #### [facility] [address] [place] [address] Dr. Sarmad Patino Glucose [Mass/Vol] 108 mg/dL Normal [facility] Comment on above: Performed By: #### D DAVIDSON, MG, PHOS, CMP, LIPID, URIC #### [facility] [address] [address] [address] Sarmad Patino HbA1c (Bld) [Mass fraction] 5.4 % Normal 4.5-6.2 [facility] Comment on above: Performed By: #### D DAVIDSON, MG, PHOS, CMP, LIPID, URIC #### [facility] [address] [address] [address] Sarmad Patino MAGNESIUMon 05-10-2022 Magnesium [Mass/Vol] 1.9 mg/dL Normal 1.8-2.4 [facility] Comment on above: Performed By: #### U MAXI, LIPID, MG, CMP, DBIL, PHOS #### [facility] [address] [place] [address] Dr. Sarmad Patino PROF 14(COMP METB)on 023 Albumin [Mass/Vol] 3.9 g/dL Normal 3.4-5.0 [facility] Comment on above: Performed By: #### D DAVIDSON, MG, PHOS, CMP, LIPID, URIC #### [facility] [address] [place] [address] Dr. Sarmad Patino Albumin/Globulin [Mass ratio] 1.2 {ratio} Normal [facility] Comment on above: Performed By: #### D DAVIDSON, MG, PHOS, CMP, LIPID, URIC #### [facility] [address] [place] [address] Dr. Sarmad Patino ALP [Catalytic activity/Vol] 114 U/L Normal 46-116 [facility] Comment on above: Performed By: #### D DAVIDSON, MG, PHOS, CMP, LIPID, URIC #### [facility] [address] [place] [address] Dr. Sarmad Patino ALT [Catalytic activity/Vol] 18 U/L Normal 14-59 [facility] Comment on above: Performed By: #### D DAVIDSON, MG, PHOS, CMP, LIPID, URIC #### [facility] [address] [place] [address] Dr. Sarmad Patino Anion gap [Moles/Vol] 15.9 mmol/L Normal [facility] Comment on above: Performed By: #### D DAVIDSON, MG, PHOS, CMP, LIPID, URIC #### [facility] [address] [address] [address] Sarmad Patino AST [Catalytic activity/Vol] 17 U/L Normal 15-37 [facility] Comment on above: Performed By: #### D DAVIDSON, MG, PHOS, CMP, LIPID, URIC #### [facility] [address] [place] [address] Dr. Sarmad Patino Bilirubin [Mass/Vol] 0.4 mg/dL Normal 0.2-1.0 [facility] Comment on above: Performed By: #### D DAVIDSON, MG, PHOS, CMP, LIPID, URIC #### [facility] [address] [place] [address] Dr. Sarmad Paitno Calcium [Mass/Vol] 9.8 mg/dL Normal 8.5-10.1 [facility] Comment on above: Performed By: #### D DAVIDSON, MG, PHOS, CMP, LIPID, URIC #### [facility] [address] [place] [address] Dr. Sarmad Patino Chloride [Moles/Vol] 103 mmol/L Normal 98-107 [facility] Comment on above: Performed By: #### D DAVIDSON, MG, PHOS, CMP, LIPID, URIC #### [facility] [address] [place] [address] Dr. Sarmad Patino CO2 [Moles/Vol] 29.2 mmol/L Normal 21.0-32.0 [facility] Comment on above: Performed By: #### D DAVIDSON, MG, PHOS, CMP, LIPID, URIC #### [facility] [address] [place] [address] Dr. Sarmad Patino Creatinine [Mass/Vol] 0.74 mg/dL Normal 0.55-1.02 [facility] Comment on above: Performed By: #### D DAVIDSON, MG, PHOS, CMP, LIPID, URIC #### [facility] [address] [place] [address] Dr. Sarmad Patino EGFR-AF KOSOVAN >60 Normal >=60 [facility] Comment on above: Performed By: #### D DAVIDSON, MG, PHOS, CMP, LIPID, URIC #### [facility] [address] [address] [address] Sarmad Patino EGFR-NON AF KOSOVAN >60 Normal >=60 [facility] Comment on above: Performed By: #### D DAVIDSON, MG, PHOS, CMP, LIPID, URIC #### [facility] [address] [address] [address] Sarmad Patino Globulin (S) [Mass/Vol] 3.2 g/dL Normal [facility] Comment on above: Performed By: #### D DAVIDSON, MG, PHOS, CMP, LIPID, URIC #### [facility] [address] [address] [address] Sarmad Patino Glucose [Mass/Vol] 94 mg/dL Normal 74-106 [facility] Comment on above: Performed By: #### D DAVIDSON, MG, PHOS, CMP, LIPID, URIC #### [facility] [address] [address] [address] Sarmad Patino Potassium [Moles/Vol] 4.1 mmol/L Normal 3.5-5.1 [facility] Comment on above: Performed By: #### D DAVIDSON, MG, PHOS, CMP, LIPID, URIC #### [facility] [address] [address] [address] Sarmad Patino Protein [Mass/Vol] 7.1 g/dL Normal 6.4-8.2 [facility] Comment on above: Performed By: #### D DAVIDSON, MG, PHOS, CMP, LIPID, URIC #### [facility] [address] [address] [address] Sarmad Patino Sodium [Moles/Vol] 144 mmol/L Normal 136-145 [facility] Comment on above: Performed By: #### D DAVIDSON, MG, PHOS, CMP, LIPID, URIC #### [facility] [address] [address] [address] Sarmad Patino Urea nitrogen [Mass/Vol] 18.0 mg/dL Normal 7.0-18.0 [facility] Comment on above: Performed By: #### D DAVIDSON, MG, PHOS, CMP, LIPID, URIC #### [facility] [address] [place] [address] Dr. Sarmad Patino Urea nitrogen/Creatinine [Mass ratio] 24.3 mg/mg Normal [facility] Comment on above: Performed By: #### D DAVIDSON, MG, PHOS, CMP, LIPID, URIC #### [facility] [address] [place] [address] Dr. Sarmad Patino URIC ACID SERUMon 05-10-2022 Urate [Mass/Vol] 5.1 mg/dL Normal 2.6-6.0 [facility] Comment on above: Performed By: #### U MAXI, LIPID, MG, CMP, DBIL, PHOS #### [facility] [address] [place] [address] Dr. Sarmad Patino MYCOPHENOLIC ACIDon 04-17-19 Mycophenolic Acid 1.2 ug/mL Normal 1.0-3.5 [facility] Comment on above: Performed By: #### D DAVIDSON, MG, PHOS, CMP, LIPID, URIC #### [facility] [address] [place] [address] Dr. Sarmad Patino Mycophenolic Acid Glucuronide 37 ug/mL Normal 15-125 [facility] Comment on above: Result Comment: [facility] 's Reference Range: 35-100 mcg/mL. Performed By: #### D DAVIDSON, MG, PHOS, CMP, LIPID, URIC #### [facility] [address] [place] [address] Dr. Sarmad Patino FK506 (TACROLIMUS) WHOLE BLO ODon 04-10-2022 Tacrolimus (FK506), Blood 4.2 ng/mL Normal 2.0-20.0 [facility] Comment on above: Result Comment: Trou gh (immediately following transplant) 15.0 . Trough (steady state, 2 weeks or more after transplant): 3.0 - 8.0 . Performed by LC-MS/MS technology. Performed By: #### D DAVIDSON, MG, PHOS, CMP, LIPID, URIC #### [facility] [address] [place] [address] Dr. Sarmad Patino BILIRUBIN CONJUGATED (DIRECT )on 04-08-2022 BILI, CONJUGATED 0.1 mg/dL Normal 0.0-0.2 [facility] Comment on above: Performed By: #### U MAXI, LIPID, MG, CMP, DBIL, PHOS #### [facility] [address] [place] [address] Dr. Sarmad Patino CBC AUTO DIFFon 04-08-2022 BASO # 0.0 103/ul Normal 0.0-0.1 [facility] Comment on above: Performed By: #### D DAVIDSON, MG, PHOS, CMP, LIPID, URIC #### [facility] [address] [place] [address] Dr. Sarmad Patino Basophils/100 WBC (Bld) 0.3 % Normal 0.2-2.0 [facility] Comment on above: Performed By: #### D DAVIDSON, MG, PHOS, CMP, LIPID, URIC #### [facility] [address] [place] [address] Dr. Sarmad Patino EO # 0.1 103/ul Normal 0.0-0.7 [facility] Comment on above: Performed By: #### D DAVIDSON, MG, PHOS, CMP, LIPID, URIC #### [facility] [address] [place] [address] Dr. Sarmad Patino Eosinophils/100 WBC (Bld) 1.4 % Normal 0.9-7.0 [facility] Comment on above: Performed By: #### D DAVIDSON, MG, PHOS, CMP, LIPID, URIC #### [facility] [address] [place] [address] Dr. Sarmad Patino Erythrocyte distribution width (RBC) [Ratio] 15.8 % Critically high 11.0-15.0 [facility] Comment on above: Performed By: #### D DAVIDSON, MG, PHOS, CMP, LIPID, URIC #### [facility] [address] [place] [address] Dr. Sarmad Patino Hematocrit (Bld) [Volume fraction] 43.0 % Normal 36.0-48.0 [facility] Comment on above: Performed By: #### D DAVIDSON, MG, PHOS, CMP, LIPID, URIC #### [facility] [address] [place] [address] Dr. Sarmad Patino Hemoglobin (Bld) [Mass/Vol] 15.0 g/dL Normal 12.0-16.0 [facility] Comment on above: Performed By: #### D DAVIDSON, MG, PHOS, CMP, LIPID, URIC #### [facility] [address] [address] [address] Sarmad Patino IG # 0.01 10e3/ul Normal 0.00-0.03 [facility] Comment on above: Performed By: #### D DAVIDSON, MG, PHOS, CMP, LIPID, URIC #### [facility] [address] [place] [address] Dr. Sarmad Patino IG % 0.1 % Normal 0.0-0.5 [facility] Comment on above: Performed By: #### D DAVIDSON, MG, PHOS, CMP, LIPID, URIC #### [facility] [address] [place] [address] Dr. Sarmad Patino LYMPH # 1.3 103/ul Normal 1.2-3.8 [facility] Comment on above: Performed By: #### D DAVIDSON, MG, PHOS, CMP, LIPID, URIC #### [facility] [address] [place] [address] Dr. Sarmad Patino Lymphocytes/100 WBC (Bld) 18.3 % Critically low 20.5-60.0 [facility] Comment on above: Performed By: #### D DAVIDSON, MG, PHOS, CMP, LIPID, URIC #### [facility] [address] [address] [address] Sarmad Patino MANUAL DIFF REQ NO Normal [facility] Comment on above: Performed By: #### D DAVIDSON, MG, PHOS, CMP, LIPID, URIC #### [facility] [address] [place] [address] Dr. Sarmad Patino MCH (RBC) [Entitic mass] 29.7 pg Normal 26.7-34.0 [facility] Comment on above: Performed By: #### D DAVIDSON, MG, PHOS, CMP, LIPID, URIC #### [facility] [address] [place] [address] Dr. Sarmad Patino MCHC (RBC) [Mass/Vol] 34.9 g/dL Normal 29.9-35.2 [facility] Comment on above: Performed By: #### D DAVIDSON, MG, PHOS, CMP, LIPID, URIC #### [facility] [address] [place] [address] Dr. Sarmad Patino MCV (RBC) [Entitic vol] 85.1 fL Normal 81.0-99.0 [facility] Comment on above: Performed By: #### D DAVIDSON, MG, PHOS, CMP, LIPID, URIC #### [facility] [address] [place] [address] Dr. Sarmad Patino MONO # 0.7 103/ul Normal 0.3-0.8 [facility] Comment on above: Performed By: #### D DAVIDSON, MG, PHOS, CMP, LIPID, URIC #### [facility] [address] [place] [address] Dr. Sarmad Patino Monocytes/100 WBC (Bld) 9.8 % Normal 1.7-12.0 [facility] Comment on above: Performed By: #### D DAVIDSON, MG, PHOS, CMP, LIPID, URIC #### [facility] [address] [place] [address] Dr. Sarmad Patino NEUT # 5.1 103/ul Normal 1.4-6.5 [facility] Comment on above: Performed By: #### D DAVIDSON, MG, PHOS, CMP, LIPID, URIC #### [facility] [address] [place] [address] Dr. Sarmad Ptaino Neutrophils/100 WBC (Bld) 70.1 % Normal 43.0-75.0 [facility] Comment on above: Performed By: #### D DAVIDSON, MG, PHOS, CMP, LIPID, URIC #### [facility] [address] [place] [address] Dr. Sarmad Patino Platelet mean volume (Bld) [Entitic vol] 10.4 fL Normal 9.5-13.5 [facility] Comment on above: Performed By: #### D DAVIDSON, MG, PHOS, CMP, LIPID, URIC #### [facility] [address] [address] [address] Sarmad Patino PLT 229 103/ul Normal 150-450 [facility] Comment on above: Performed By: #### D DAVIDSON, MG, PHOS, CMP, LIPID, URIC #### [facility] [address] [address] [address] Sarmad Patino RBC 5.05 106/ul Normal 4.20-5.40 [facility] Comment on above: Performed By: #### D DAVIDSON, MG, PHOS, CMP, LIPID, URIC #### [facility] [address] [place] [address] Dr. Sarmad Patino WBC 7.2 103/ul Normal 4.0-11.0 [facility] Comment on above: Performed By: #### D DAVIDSON, MG, PHOS, CMP, LIPID, URIC #### [facility] [address] [place] [address] Dr. Sarmad Patino LIPID PROFILEon 04-08-2022 CHOL-HDL RATIO NORM SEE BELOW Normal [facility] Comment on above: Result Comment: 3.3 - 4.4 LOW RISK 4.4 - 7.1 AVERAGE RISK 7.1 - 11.0 MODERATE RISK >11.0 HIGH RISK Performed By: #### U MAXI, LIPID, MG, CMP, DBIL, PHOS #### [facility] [address] [place] [address] Dr. Sarmad Patino Cholesterol [Mass/Vol] 134 mg/dL Normal <=200 [facility] Comment on above: Performed By: #### U MAXI, LIPID, MG, CMP, DBIL, PHOS #### [facility] [address] [place] [address] Dr. Sarmad Patino Cholesterol in HDL [Mass/Vol] 55 mg/dL Normal 40-60 [facility] Comment on above: Performed By: #### U MAXI, LIPID, MG, CMP, DBIL, PHOS #### [facility] [address] [address] [address] Sarmad Patino Cholesterol in LDL [Mass/Vol] 56.6 mg/dL Normal [facility] Comment on above: Performed By: #### U MAXI, LIPID, MG, CMP, DBIL, PHOS #### [facility] [address] [address] [address] Sarmad Patino Cholesterol.total/C holesterol in HDL [Mass ratio] 2.4 {ratio} Normal [facility] Comment on above: Performed By: #### U MAXI, LIPID, MG, CMP, DBIL, PHOS #### [facility] [address] [address] [address] Sarmad Patino HDL NORMAL > or = 60 mg/dl - LO W CARDIOVASCULAR RISK <40 mg/dl - HIGH CARDIOVASCULAR RISK Normal [facility] Comment on above: Performed By: #### U MAXI, LIPID, MG, CMP, DBIL, PHOS #### [facility] [address] [address] [address] Sarmad Patino LDL CALC NORMAL SEE BELOW Normal [facility] Comment on above: Result Comment: <100 mg/dl OPTIMAL 100 - 129 mg/dl NEAR OR ABOVE OPTIMAL 130 - 159 mg/dl BORDERLINE HIGH 160 - 189 mg/dl HIGH >190 mg/dl VERY HIGH Performed By: #### U MAXI, LIPID, MG, CMP, DBIL, PHOS #### [facility] [address] [address] [address] Sarmad Patino Triglyceride [Mass/Vol] 112 mg/dL Normal <=150 [facility] Comment on above: Performed By: #### U MAXI, LIPID, MG, CMP, DBIL, PHOS #### [facility] [address] [address] [address] Sarmad Patino VLDL CALC 22.4 mg/dL Normal [facility] Comment on above: Performed By: #### U MAXI, LIPID, MG, CMP, DBIL, PHOS #### [facility] [address] [address] [address] Sarmad Patino MAGNESIUMon 04-08-2022 Magnesium [Mass/Vol] 1.8 mg/dL Normal 1.8-2.4 [facility] Comment on above: Performed By: #### U MAXI, LIPID, MG, CMP, DBIL, PHOS #### [facility] [address] [place] [address] Dr. Sarmad Patino PHOSPHORUSon 04-08-2022 Phosphate [Mass/Vol] 3.9 mg/dL Normal 2.6-4.7 [facility] Comment on above: Performed By: #### U MAXI, LIPID, MG, CMP, DBIL, PHOS #### [facility] [address] [place] [address] Dr. Sarmad Patino PROF 14(COMP METB)on 023 Albumin [Mass/Vol] 4.0 g/dL Normal 3.4-5.0 [facility] Comment on above: Performed By: #### U MAXI, LIPID, MG, CMP, DBIL, PHOS #### [facility] [address] [place] [address] Dr. Sarmad Patino Albumin/Globulin [Mass ratio] 1.3 {ratio} Normal [facility] Comment on above: Performed By: #### U MAXI, LIPID, MG, CMP, DBIL, PHOS #### [facility] [address] [place] [address] Dr. Sarmad Patino ALP [Catalytic activity/Vol] 108 U/L Normal 46-116 [facility] Comment on above: Performed By: #### U MAXI, LIPID, MG, CMP, DBIL, PHOS #### [facility] [address] [place] [address] Dr. Sarmad Patino ALT [Catalytic activity/Vol] 15 U/L Normal 14-59 [facility] Comment on above: Performed By: #### U MAXI, LIPID, MG, CMP, DBIL, PHOS #### [facility] [address] [place] [address] Dr. Sarmad Patino Anion gap [Moles/Vol] 14.3 mmol/L Normal [facility] Comment on above: Performed By: #### U MAXI, LIPID, MG, CMP, DBIL, PHOS #### [facility] [address] [place] [address] Dr. Sarmad Patino AST [Catalytic activity/Vol] 15 U/L Normal 15-37 [facility] Comment on above: Performed By: #### U MAXI, LIPID, MG, CMP, DBIL, PHOS #### [facility] [address] [place] [address] Dr. Sarmad Patino Bilirubin [Mass/Vol] 0.5 mg/dL Normal 0.2-1.0 [facility] [facility] Comment on above: Performed By: #### U MAXI, LIPID, MG, CMP, DBIL, PHOS #### [facility] [address] [place] [address] Dr. Sarmad Patino Calcium [Mass/Vol] 9.7 mg/dL Normal 8.5-10.1 [facility] Comment on above: Performed By: #### U MAXI, LIPID, MG, CMP, DBIL, PHOS #### [facility] [address] [place] [address] Dr. Sarmad Patino Chloride [Moles/Vol] 105 mmol/L Normal 98-107 [facility] Comment on above: Performed By: #### U MAXI, LIPID, MG, CMP, DBIL, PHOS #### [facility] [address] [place] [address] Dr. Sarmad Patino CO2 [Moles/Vol] 26.6 mmol/L Normal 21.0-32.0 [facility] Comment on above: Performed By: #### U MAXI, LIPID, MG, CMP, DBIL, PHOS #### [facility] [address] [place] [address] Dr. Sarmad Patino Creatinine [Mass/Vol] 0.80 mg/dL Normal 0.55-1.02 [facility] Comment on above: Performed By: #### U MAXI, LIPID, MG, CMP, DBIL, PHOS #### [facility] [address] [place] [address] Dr. Sarmad Patino EGFR-AF KOSOVAN >60 Normal >=60 [facility] Comment on above: Performed By: #### U MAXI, LIPID, MG, CMP, DBIL, PHOS #### [facility] [address] [place] [address] Dr. Sarmad Patino EGFR-NON AF KOSOVAN >60 Normal >=60 [facility] Comment on above: Performed By: #### U MAXI, LIPID, MG, CMP, DBIL, PHOS #### [facility] [address] [place] [address] Dr. Sarmad Patino Globulin (S) [Mass/Vol] 3.0 g/dL Normal [facility] Comment on above: Performed By: #### U MAXI, LIPID, MG, CMP, DBIL, PHOS #### [facility] [address] [place] [address] Dr. Sarmad Patino Glucose [Mass/Vol] 99 mg/dL Normal 74-106 [facility] Comment on above: Performed By: #### U MAXI, LIPID, MG, CMP, DBIL, PHOS #### [facility] [address] [place] [address] Dr. Sarmad Patino Potassium [Moles/Vol] 3.9 mmol/L Normal 3.5-5.1 [facility] Comment on above: Performed By: #### U MAXI, LIPID, MG, CMP, DBIL, PHOS #### [facility] [address] [place] [address] Dr. Sarmad Patino Protein [Mass/Vol] 7.0 g/dL Normal 6.4-8.2 [facility] Comment on above: Performed By: #### U MAXI, LIPID, MG, CMP, DBIL, PHOS #### [facility] [address] [place] [address] Dr. Sarmad Patino Sodium [Moles/Vol] 142 mmol/L Normal 136-145 [facility] Comment on above: Performed By: #### U MAXI, LIPID, MG, CMP, DBIL, PHOS #### [facility] [address] [place] [address] Dr. Sarmad Patino Urea nitrogen [Mass/Vol] 14.0 mg/dL Normal 7.0-18.0 [facility] Comment on above: Performed By: #### U MAXI, LIPID, MG, CMP, DBIL, PHOS #### [facility] [address] [address] [address] Sarmad Patino Urea nitrogen/Creatinine [Mass ratio] 17.5 mg/mg Normal [facility] Comment on above: Performed By: #### U MAXI, LIPID, MG, CMP, DBIL, PHOS #### [facility] [address] [address] [address] Sarmad Patino URIC ACID SERUMon 04-08-2022 Urate [Mass/Vol] 5.2 mg/dL Normal 2.6-6.0 [facility] Comment on above: Performed By: #### U MAXI, LIPID, MG, CMP, DBIL, PHOS #### [facility] [address] [address] [address] Sarmad Patino BK VIRUS PCR QUANTon 022 BKV DNA QUANT PCR PLASMA Negative Normal Negative [facility] Comment on above: Result Comment: No B K DNA detected. . The linear range of the assay is 22 - 100,000,000 IU/mL. Performed By: #### D DAVIDSON, MG, PHOS, CMP, LIPID, URIC #### [facility] [address] [address] [address] Sarmad Patino Log10 BKV DNA Plasma Normal [facility] Comment on above: Performed By: #### D DAVIDSON, MG, PHOS, CMP, LIPID, URIC #### [facility] [address] [address] [address] Sarmad Patino FK506 (TACROLIMUS) WHOLE BLO ODon 03-13-2022 Tacrolimus (FK506), Blood 5.0 ng/mL Normal 2.0-20.0 [facility] Comment on above: Result Comment: Trou gh (immediately following transplant) 15.0 . Trough (steady state, 2 weeks or more after transplant): 3.0 - 8.0 . Performed by LC-MS/MS technology. Performed By: #### D DAVIDSON, MG, PHOS, CMP, LIPID, URIC #### [facility] [address] [address] [address] Sarmad Patino GLYCOHEMOGLOBIN A1Con 2021 ADA RECOMMENDATION SEE BELOW Normal [facility] Comment on above: Result Comment: ADA RECOMMENDED LIMIT 4.0 - 6.0 ADA THERAPEUTIC TARGET < 7.0 ACTION SUGGESTED > 7.0 Performed By: #### D DAVIDSON, MG, PHOS, CMP, LIPID, URIC #### [facility] [address] [place] [address] Dr. Sarmad Patino Glucose [Mass/Vol] 111 mg/dL Normal [facility] Comment on above: Performed By: #### D DAVIDSON, MG, PHOS, CMP, LIPID, URIC #### [facility] [address] [place] [address] Dr. Sarmad Patino HbA1c (Bld) [Mass fraction] 5.5 % Normal 4.5-6.2 [facility] Comment on above: Performed By: #### D DAVIDSON, MG, PHOS, CMP, LIPID, URIC #### [facility] [address] [place] [address] Dr. Sarmad Patino LIVER PROFILEon 03-11-2022 Albumin [Mass/Vol] 3.7 g/dL Normal 3.4-5.0 [facility] Comment on above: Performed By: #### D DAVIDSON, MG, PHOS, CMP, LIPID, URIC #### [facility] [address] [place] [address] Dr. Sarmad Patino Albumin/Globulin [Mass ratio] 1.1 {ratio} Normal [facility] Comment on above: Performed By: #### D DAVIDSON, MG, PHOS, CMP, LIPID, URIC #### [facility] [address] [address] [address] Sarmad Patino ALP [Catalytic activity/Vol] 124 U/L Critically high 46-116 [facility] Comment on above: Performed By: #### D DAVIDSON, MG, PHOS, CMP, LIPID, URIC #### [facility] [address] [place] [address] Dr. Sarmad Patino ALT [Catalytic activity/Vol] 17 U/L Normal 14-59 [facility] Comment on above: Performed By: #### D DAVIDSON, MG, PHOS, CMP, LIPID, URIC #### [facility] [address] [place], [place] [id number] Dr. Sarmad Patino AST [Catalytic activity/Vol] 16 U/L Normal 15-37 [facility] Comment on above: Performed By: #### D DAVIDSON, MG, PHOS, CMP, LIPID, URIC #### [facility] [address] [place] [address] Dr. Sarmad Patino BILI, CONJUGATED 0.2 mg/dL Normal 0.0-0.2 [facility] Comment on above: Performed By: #### D DAVIDSON, MG, PHOS, CMP, LIPID, URIC #### [facility] [address] [place] [address] Dr. Sarmad Patino Bilirubin [Mass/Vol] 0.6 mg/dL Normal 0.2-1.0 [facility] Comment on above: Performed By: #### D DAVIDSON, MG, PHOS, CMP, LIPID, URIC #### [facility] [address] [place] [address] Dr. Sarmad Patino Globulin (S) [Mass/Vol] 3.4 g/dL Normal [facility] Comment on above: Performed By: #### D DAVIDSON, MG, PHOS, CMP, LIPID, URIC #### [facility] [address] [place] [address] Dr. Sarmad Patino Protein [Mass/Vol] 7.1 g/dL Normal 6.4-8.2 [facility] Comment on above: Performed By: #### D DAVIDSON, MG, PHOS, CMP, LIPID, URIC #### [facility] [address] [place] [address] Dr. Sarmad Patino MAGNESIUMon 03-11-2022 Magnesium [Mass/Vol] 1.6 mg/dL Critically low 1.8-2.4 [facility] Comment on above: Performed By: #### D DAVIDSON, MG, PHOS, CMP, LIPID, URIC #### [facility] [address] [place] [address] Dr. Sarmad Patino PHOSPHORUSon 03-11-2022 Phosphate [Mass/Vol] 3.5 mg/dL Normal 2.6-4.7 [facility] Comment on above: Performed By: #### D DAVIDSON, MG, PHOS, CMP, LIPID, URIC #### [facility] [address] [address] [address] Sarmad Patino URIC ACID SERUMon 03-11-2022 Urate [Mass/Vol] 5.3 mg/dL Normal 2.6-6.0 [facility] Comment on above: Performed By: #### D DAVIDSON, MG, PHOS, CMP, LIPID, URIC #### [facility] [address] [address] [address] Sarmad Patino MYCOPHENOLIC ACIDon 02-19-20 Mycophenolic Acid 1.5 ug/mL Normal 1.0-3.5 [facility] Comment on above: Performed By: #### D DAVIDSON, MG, PHOS, CMP, LIPID, URIC #### [facility] [address] [place] [address] Dr. Sarmad Patino Mycophenolic Acid Glucuronide 32 ug/mL Normal 15-125 [facility] Comment on above: Result Comment: [facility] 's Reference Range: 35-100 mcg/mL. Performed By: #### D DAVIDSON, MG, PHOS, CMP, LIPID, URIC #### [facility] [address] [place] [address] Dr. Sarmad Patino BK VIRUS PCR QUANTon 022 BKV DNA QUANT PCR PLASMA Negative Normal Negative [facility] Comment on above: Result Comment: No B K DNA detected. . The linear range of the assay is 22 - 100,000,000 IU/mL. Performed By: #### D DAVIDSON, MG, PHOS, CMP, LIPID, URIC #### [facility] [address] [place] [address] Dr. Sarmad Patino Log10 BKV DNA Plasma Normal [facility] Comment on above: Performed By: #### D DAVIDSON, MG, PHOS, CMP, LIPID, URIC #### [facility] [address] [place] [address] Dr. Sarmad Patino FK506 (TACROLIMUS) WHOLE BLO ODon 02-11-2022 Tacrolimus (FK506), Blood 4.4 ng/mL Normal 2.0-20.0 [facility] Comment on above: Result Comment: Trou gh (immediately following transplant) 15.0 . Trough (steady state, 2 weeks or more after transplant): 3.0 - 8.0 . Performed by LC-MS/MS technology. Performed By: #### U MAXI, LIPID, MG, CMP, DBIL, PHOS #### [facility] [address] [place] [address] Dr. Sarmad Patino BILIRUBIN CONJUGATED (DIRECT )on 02-08-2022 BILI, CONJUGATED 0.1 mg/dL Normal 0.0-0.2 [facility] Comment on above: Performed By: #### D DAVIDSON, MG, PHOS, CMP, LIPID, URIC #### [facility] [address] [place] [address] Dr. Sarmad Patino CBC AUTO DIFFon 02-08-2022 BASO # 0.0 103/ul Normal 0.0-0.1 [facility] Comment on above: Performed By: #### D DAVIDSON, MG, PHOS, CMP, LIPID, URIC #### [facility] [address] [place] [address] Dr. Sarmad Patino Basophils/100 WBC (Bld) 0.3 % Normal 0.2-2.0 [facility] Comment on above: Performed By: #### D DAVIDSON, MG, PHOS, CMP, LIPID, URIC #### [facility] [address] [place] [address] Dr. Sarmad Patino EO # 0.1 103/ul Normal 0.0-0.7 [facility] Comment on above: Performed By: #### D DAVIDSON, MG, PHOS, CMP, LIPID, URIC #### [facility] [address] [place] [address] Dr. Sarmad Patino Eosinophils/100 WBC (Bld) 1.0 % Normal 0.9-7.0 [facility] Comment on above: Performed By: #### D DAVIDSON, MG, PHOS, CMP, LIPID, URIC #### [facility] [address] [place] [address] Dr. Sarmad Patino Erythrocyte distribution width (RBC) [Ratio] 15.9 % Critically high 11.0-15.0 [facility] Comment on above: Performed By: #### D DAVIDSON, MG, PHOS, CMP, LIPID, URIC #### [facility] [address] [place] [address] Dr. Sarmad Patino Hematocrit (Bld) [Volume fraction] 42.2 % Normal 36.0-48.0 [facility] Comment on above: Performed By: #### D DAVIDSON, MG, PHOS, CMP, LIPID, URIC #### [facility] [address] [place] [address] Dr. Sarmad Patino Hemoglobin (Bld) [Mass/Vol] 13.8 g/dL Normal 12.0-16.0 [facility] Comment on above: Performed By: #### D DAVIDSON, MG, PHOS, CMP, LIPID, URIC #### [facility] [address] [place] [address] Dr. Sarmad Patino IG # 0.10 10e3/ul Critically high 0.00-0.03 [facility] Comment on above: Performed By: #### D DAVIDSON, MG, PHOS, CMP, LIPID, URIC #### [facility] [address] [place] [address] Dr. Sarmad Patino IG % 1.1 % Critically high 0.0-0.5 [facility] Comment on above: Performed By: #### D DAVIDSON, MG, PHOS, CMP, LIPID, URIC #### [facility] [address] [place] [address] Dr. Sarmad Patino LYMPH # 1.2 103/ul Normal 1.2-3.8 [facility] Comment on above: Performed By: #### D DAVIDSON, MG, PHOS, CMP, LIPID, URIC #### [facility] [address] [place] [address] Dr. Sarmad Patino Lymphocytes/100 WBC (Bld) 12.6 % Critically low 20.5-60.0 [facility] Comment on above: Performed By: #### D DAVIDSON, MG, PHOS, CMP, LIPID, URIC #### [facility] [address] [place] [address] Dr. Sarmad Pation MANUAL DIFF REQ NO Normal [facility] Comment on above: Performed By: #### D DAVIDSON, MG, PHOS, CMP, LIPID, URIC #### [facility] [address] [address] [address] Sarmad Patino MCH (RBC) [Entitic mass] 28.3 pg Normal 26.7-34.0 [facility] Comment on above: Performed By: #### D DAVIDSON, MG, PHOS, CMP, LIPID, URIC #### [facility] [address] [place] [address] Dr. Sarmad Patino MCHC (RBC) [Mass/Vol] 32.7 g/dL Normal 29.9-35.2 [facility] Comment on above: Performed By: #### D DAVIDSON, MG, PHOS, CMP, LIPID, URIC #### [facility] [address] [place] [address] Dr. Sarmad Patino MCV (RBC) [Entitic vol] 86.7 fL Normal 81.0-99.0 [facility] Comment on above: Performed By: #### D DAVIDSON, MG, PHOS, CMP, LIPID, URIC #### [facility] [address] [place] [address] Dr. Sarmad Patino MONO # 1.0 103/ul Critically high 0.3-0.8 [facility] Comment on above: Performed By: #### D DAVIDSON, MG, PHOS, CMP, LIPID, URIC #### [facility] [address] [place] [address] Dr. Sarmad Patino Monocytes/100 WBC (Bld) 10.7 % Normal 1.7-12.0 [facility] Comment on above: Performed By: #### D DAVIDSON, MG, PHOS, CMP, LIPID, URIC #### [facility] [address] [place] [address] Dr. Sarmad Patino NEUT # 6.9 103/ul Critically high 1.4-6.5 [facility] Comment on above: Performed By: #### D DAVIDSON, MG, PHOS, CMP, LIPID, URIC #### [facility] [address] [place] [address] Dr. Sarmad Patino Neutrophils/100 WBC (Bld) 74.3 % Normal 43.0-75.0 [facility] Comment on above: Performed By: #### D DAVIDSON, MG, PHOS, CMP, LIPID, URIC #### [facility] [address] [address] [address] Sarmad Patino Platelet mean volume (Bld) [Entitic vol] 11.1 fL Normal 9.5-13.5 [facility] Comment on above: Performed By: #### D DAVIDSON, MG, PHOS, CMP, LIPID, URIC #### [facility] [address] [address] [address] Sarmad Patino PLT 307 103/ul Normal 150-450 [facility] Comment on above: Performed By: #### D DAVIDSON, MG, PHOS, CMP, LIPID, URIC #### [facility] [address] [place] [address] Dr. Sarmad Patino RBC 4.87 106/ul Normal 4.20-5.40 [facility] Comment on above: Performed By: #### D DAVIDSON, MG, PHOS, CMP, LIPID, URIC #### [facility] [address] [address] [address] Sarmad Patino WBC 9.3 103/ul Normal 4.0-11.0 [facility] Comment on above: Performed By: #### D DAVIDSON, MG, PHOS, CMP, LIPID, URIC #### [facility] [address] [place] [address] Dr. Sarmad Patino GLYCOHEMOGLOBIN A1Con 2021 ADA RECOMMENDATION SEE BELOW Normal [facility] Comment on above: Result Comment: ADA RECOMMENDED LIMIT 4.0 - 6.0 ADA THERAPEUTIC TARGET < 7.0 ACTION SUGGESTED > 7.0 Performed By: #### D DAVIDSON, MG, PHOS, CMP, LIPID, URIC #### [facility] [address] [address] [address] Sarmad Patino Glucose [Mass/Vol] 134 mg/dL Normal [facility] Comment on above: Performed By: #### D DAVIDSON, MG, PHOS, CMP, LIPID, URIC #### [facility] [address] [place] [address] Dr. Sarmad Patino HbA1c (Bld) [Mass fraction] 6.3 % Critically high 4.5-6.2 [facility] Comment on above: Performed By: #### D DAVIDSON, MG, PHOS, CMP, LIPID, URIC #### [facility] [address] [address] [address] Sarmad Patino LIPID PROFILEon 02-08-2022 CHOL-HDL RATIO NORM SEE BELOW Normal [facility] Comment on above: Result Comment: 3.3 - 4.4 LOW RISK 4.4 - 7.1 AVERAGE RISK 7.1 - 11.0 MODERATE RISK >11.0 HIGH RISK Performed By: #### D DAVIDSON, MG, PHOS, CMP, LIPID, URIC #### [facility] [address] [address] [address] Sarmad Patino Cholesterol [Mass/Vol] 180 mg/dL Normal <=200 [facility] Comment on above: Performed By: #### D DAVIDSON, MG, PHOS, CMP, LIPID, URIC #### [facility] [address] [address] [address] Sarmad Patino Cholesterol in HDL [Mass/Vol] 58 mg/dL Normal 40-60 [facility] Comment on above: Performed By: #### D DAVIDSON, MG, PHOS, CMP, LIPID, URIC #### [facility] [address] [address] [address] Sarmad Patino Cholesterol in LDL [Mass/Vol] 86.6 mg/dL Normal [facility] Comment on above: Performed By: #### D DAVIDSON, MG, PHOS, CMP, LIPID, URIC #### [facility] [address] [address] [address] Sarmad Patino Cholesterol.total/C holesterol in HDL [Mass ratio] 3.1 {ratio} Normal [facility] Comment on above: Performed By: #### D DAVIDSON, MG, PHOS, CMP, LIPID, URIC #### [facility] [address] [address] [address] Sarmad Patino HDL NORMAL > or = 60 mg/dl - LO W CARDIOVASCULAR RISK <40 mg/dl - HIGH CARDIOVASCULAR RISK Normal [facility] Comment on above: Performed By: #### D DAVIDSON, MG, PHOS, CMP, LIPID, URIC #### [facility] [address] [address] [address] Sarmad Patino LDL CALC NORMAL SEE BELOW Normal [facility] Comment on above: Result Comment: <100 mg/dl OPTIMAL 100 - 129 mg/dl NEAR OR ABOVE OPTIMAL 130 - 159 mg/dl BORDERLINE HIGH 160 - 189 mg/dl HIGH >190 mg/dl VERY HIGH Performed By: #### D DAVIDSON, MG, PHOS, CMP, LIPID, URIC #### [facility] [address] [address] [address] Sarmad Patino Triglyceride [Mass/Vol] 177 mg/dL Critically high <=150 [facility] Comment on above: Performed By: #### D DAVIDSON, MG, PHOS, CMP, LIPID, URIC #### [facility] [address] [place] [address] Dr. Sarmad Patino VLDL CALC 35.4 mg/dL Normal [facility] Comment on above: Performed By: #### D DAVIDSON, MG, PHOS, CMP, LIPID, URIC #### [facility] [address] [place] [address] Dr. Sarmad Patino MAGNESIUMon 02-08-2022 Magnesium [Mass/Vol] 1.8 mg/dL Normal 1.8-2.4 [facility] Comment on above: Performed By: #### D DAVIDSON, MG, PHOS, CMP, LIPID, URIC #### [facility] [address] [place] [address] Dr. Sarmad Patino PHOSPHORUSon 02-08-2022 Phosphate [Mass/Vol] 3.3 mg/dL Normal 2.6-4.7 [facility] Comment on above: Performed By: #### D DAVIDSON, MG, PHOS, CMP, LIPID, URIC #### [facility] [address] [place] [address] Dr. Sarmad Patino PROF 14(COMP METB)on 022 Albumin [Mass/Vol] 3.8 g/dL Normal 3.4-5.0 [facility] Comment on above: Performed By: #### D DAVIDSON, MG, PHOS, CMP, LIPID, URIC #### [facility] [address] [place] [address] Dr. Sarmad Patino Albumin/Globulin [Mass ratio] 1.3 {ratio} Normal [facility] Comment on above: Performed By: #### D DAVIDSON, MG, PHOS, CMP, LIPID, URIC #### [facility] [address] [place] [address] Dr. Sarmad Patino ALP [Catalytic activity/Vol] 144 U/L Critically high 46-116 [facility] Comment on above: Performed By: #### D DAVIDSON, MG, PHOS, CMP, LIPID, URIC #### [facility] [address] [place] [address] Dr. Sarmad Patino ALT [Catalytic activity/Vol] 24 U/L Normal 14-59 [facility] Comment on above: Performed By: #### D DAVIDSON, MG, PHOS, CMP, LIPID, URIC #### [facility] [address] [place] [address] Dr. Sarmad Patino Anion gap [Moles/Vol] 13.7 mmol/L Normal [facility] Comment on above: Performed By: #### D DAVIDSON, MG, PHOS, CMP, LIPID, URIC #### [facility] [address] [place] [address] Dr. Sarmad Patino AST [Catalytic activity/Vol] 19 U/L Normal 15-37 [facility] Comment on above: Performed By: #### D DAVIDSON, MG, PHOS, CMP, LIPID, URIC #### [facility] [address] [place] [address] Dr. Sarmad Patino Bilirubin [Mass/Vol] 0.5 mg/dL Normal 0.2-1.0 [facility] Comment on above: Performed By: #### D DAVIDSON, MG, PHOS, CMP, LIPID, URIC #### [facility] [address] [place] [address] Dr. Sarmad Patino Calcium [Mass/Vol] 9.6 mg/dL Normal 8.5-10.1 [facility] Comment on above: Performed By: #### D DAVIDSON, MG, PHOS, CMP, LIPID, URIC #### [facility] [address] [address] [address] Sarmad Patino Chloride [Moles/Vol] 103 mmol/L Normal 98-107 [facility] Comment on above: Performed By: #### D DAVIDSON, MG, PHOS, CMP, LIPID, URIC #### [facility] [address] [address] [address] Sarmad Patino CO2 [Moles/Vol] 26.6 mmol/L Normal 21.0-32.0 [facility] Comment on above: Performed By: #### D DAVIDSON, MG, PHOS, CMP, LIPID, URIC #### [facility] [address] [address] [address] Sarmad Patino Creatinine [Mass/Vol] 0.75 mg/dL Normal 0.55-1.02 [facility] Comment on above: Performed By: #### D DAVIDSON, MG, PHOS, CMP, LIPID, URIC #### [facility] [address] [address] [address] Sarmad Patino EGFR-AF KOSOVAN >60 Normal >=60 [facility] Comment on above: Performed By: #### D DAVIDSON, MG, PHOS, CMP, LIPID, URIC #### [facility] [address] [place] [address] Dr. Sarmad Patino EGFR-NON AF KOSOVAN >60 Normal >=60 [facility] Comment on above: Performed By: #### D DAVIDSON, MG, PHOS, CMP, LIPID, URIC #### [facility] [address] [address] [address] Sarmad Patino Globulin (S) [Mass/Vol] 3.0 g/dL Normal [facility] Comment on above: Performed By: #### D DAVIDSON, MG, PHOS, CMP, LIPID, URIC #### [facility] [address] [place] [address] Dr. Sarmad Patino Glucose [Mass/Vol] 99 mg/dL Normal 74-106 [facility] Comment on above: Performed By: #### D DAVIDSON, MG, PHOS, CMP, LIPID, URIC #### [facility] [address] [place] [address] Dr. aSrmad Patino Potassium [Moles/Vol] 4.3 mmol/L Normal 3.5-5.1 [facility] Comment on above: Performed By: #### D DAVIDSON, MG, PHOS, CMP, LIPID, URIC #### [facility] [address] [place] [address] Dr. Sarmad Patino Protein [Mass/Vol] 6.8 g/dL Normal 6.4-8.2 [facility] Comment on above: Performed By: #### D DAVIDSON, MG, PHOS, CMP, LIPID, URIC #### [facility] [address] [place] [address] Dr. Sarmad Patino Sodium [Moles/Vol] 139 mmol/L Normal 136-145 [facility] Comment on above: Performed By: #### D DAVIDSON, MG, PHOS, CMP, LIPID, URIC #### [facility] [address] [place] [address] Dr. Sarmad Patino Urea nitrogen [Mass/Vol] 16.0 mg/dL Normal 7.0-18.0 [facility] Comment on above: Performed By: #### D DAVIDSON, MG, PHOS, CMP, LIPID, URIC #### [facility] [address] [place] [address] Dr. Sarmad Patino Urea nitrogen/Creatinine [Mass ratio] 21.3 mg/mg Normal [facility] Comment on above: Performed By: #### D DAVIDSON, MG, PHOS, CMP, LIPID, URIC #### [facility] [address] [place] [address] Dr. Sarmad Patino URIC ACID SERUMon 02-08-2022 Urate [Mass/Vol] 5.4 mg/dL Normal 2.6-6.0 [facility] Comment on above: Performed By: #### D DAVIDSON, MG, PHOS, CMP, LIPID, URIC #### [facility] [address] [place] [address] Dr. Sarmad Patino BK VIRUS PCR QUANTon 022 BKV DNA QUANT PCR PLASMA 27 IU/mL Normal Negative [facility] Comment on above: Result Comment: The linear range of the assay is 22 - 100,000,000 IU/mL. Performed By: #### D DAVIDSON, MG, PHOS, CMP, LIPID, URIC #### [facility] [address] [place] [address] Dr. Sarmad Patino Log10 BKV DNA Plasma 1.431 log10 IU/mL Normal [facility] Comment on above: Performed By: #### D DAVIDSON, MG, PHOS, CMP, LIPID, URIC #### [facility] [address] [place] [address] Dr. Sarmad Patino FK506 (TACROLIMUS) WHOLE BLO ODon 01-30-2022 Tacrolimus (FK506), Blood 6.5 ng/mL Normal 2.0-20.0 [facility] Comment on above: Result Comment: Trou gh (immediately following transplant) 15.0 . Trough (steady state, 2 weeks or more after transplant): 3.0 - 8.0 . Performed by LC-MS/MS technology. Performed By: #### D DAVIDSON, MG, PHOS, CMP, LIPID, URIC #### [facility] [address] [place] [address] Dr. Sarmad Patino RAPAMUNE(SIROLIMUS)on 2021 Rapamune(Sirolimus) , whole blood 9.9 ng/mL Normal 3.0-20.0 [facility] Comment on above: Result Comment: Perf ormed by LC/MS-MS technology . This test was developed and its performance characteristics determined by [employer]. It has not been cleared or approved by the Food and Drug Administration. Performed By: #### D DAVIDSON, MG, PHOS, CMP, LIPID, URIC #### [facility] [address] [place] [address] Dr. Sarmad Patino BILIRUBIN CONJUGATED (DIRECT )on 01-28-2022 BILI, CONJUGATED 0.1 mg/dL Normal 0.0-0.2 [facility] Comment on above: Performed By: #### D DAVIDSON, MG, PHOS, CMP, LIPID, URIC #### [facility] [address] [place] [address] Dr. Sarmad Patino CBC AUTO DIFFon 01-28-2022 BASO # 0.0 103/ul Normal 0.0-0.1 [facility] Comment on above: Performed By: #### D DAVIDSON, MG, PHOS, CMP, LIPID, URIC #### [facility] [address] [place] [address] Dr. Sarmad Patino Basophils/100 WBC (Bld) 0.3 % Normal 0.2-2.0 [facility] Comment on above: Performed By: #### D DAVIDSON, MG, PHOS, CMP, LIPID, URIC #### [facility] [address] [place] [address] Dr. Sarmad Patino EO # 0.2 103/ul Normal 0.0-0.7 [facility] Comment on above: Performed By: #### D DAVIDSON, MG, PHOS, CMP, LIPID, URIC #### [facility] [address] [place] [address] Dr. Sarmad Patino Eosinophils/100 WBC (Bld) 3.1 % Normal 0.9-7.0 [facility] Comment on above: Performed By: #### D DAVIDSON, MG, PHOS, CMP, LIPID, URIC #### [facility] [address] [place] [address] Dr. Sarmad Patino Erythrocyte distribution width (RBC) [Ratio] 15.4 % Critically high 11.0-15.0 [facility] Comment on above: Performed By: #### D DAVIDSON, MG, PHOS, CMP, LIPID, URIC #### [facility] [address] [place] [address] Dr. Sarmad Patino Hematocrit (Bld) [Volume fraction] 42.6 % Normal 36.0-48.0 [facility] Comment on above: Performed By: #### D DAVIDSON, MG, PHOS, CMP, LIPID, URIC #### [facility] [address] [place] [address] Dr. Sarmad Patino Hemoglobin (Bld) [Mass/Vol] 14.0 g/dL Normal 12.0-16.0 [facility] Comment on above: Performed By: #### D DAVIDSON, MG, PHOS, CMP, LIPID, URIC #### [facility] [address] [place] [address] Dr. Sarmad Patino IG # 0.05 10e3/ul Critically high 0.00-0.03 [facility] Comment on above: Performed By: #### D DAVIDSON, MG, PHOS, CMP, LIPID, URIC #### [facility] [address] [place] [address] Dr. Sarmad Patino IG % 0.7 % Critically high 0.0-0.5 [facility] Comment on above: Performed By: #### D DAVIDSON, MG, PHOS, CMP, LIPID, URIC #### [facility] [address] [place] [address] Dr. Sarmad Patino LYMPH # 1.1 103/ul Critically low 1.2-3.8 [facility] Comment on above: Performed By: #### D DAVIDSON, MG, PHOS, CMP, LIPID, URIC #### [facility] [address] [place] [address] Dr. Sarmad Patino Lymphocytes/100 WBC (Bld) 15.8 % Critically low 20.5-60.0 [facility] Comment on above: Performed By: #### D DAVIDSON, MG, PHOS, CMP, LIPID, URIC #### [facility] [address] [place] [address] Dr. Sarmad Patino MANUAL DIFF REQ NO Normal [facility] Comment on above: Performed By: #### D DAVIDSON, MG, PHOS, CMP, LIPID, URIC #### [facility] [address] [place] [address] Dr. Sarmad Patino MCH (RBC) [Entitic mass] 28.3 pg Normal 26.7-34.0 [facility] Comment on above: Performed By: #### D DAVIDSON, MG, PHOS, CMP, LIPID, URIC #### [facility] [address] [place] [address] Dr. Sarmad Patino MCHC (RBC) [Mass/Vol] 32.9 g/dL Normal 29.9-35.2 [facility] Comment on above: Performed By: #### D DAVIDSON, MG, PHOS, CMP, LIPID, URIC #### [facility] [address] [place], [place] [id number] Dr. Sarmad Patino MCV (RBC) [Entitic vol] 86.2 fL Normal 81.0-99.0 [facility] Comment on above: Performed By: #### D DAVIDSON, MG, PHOS, CMP, LIPID, URIC #### [facility] [address] [place] [address] Dr. Sarmad Patino MONO # 0.8 103/ul Normal 0.3-0.8 [facility] Comment on above: Performed By: #### D DAVIDSON, MG, PHOS, CMP, LIPID, URIC #### [facility] [address] [place] [address] Dr. Sarmad Patino Monocytes/100 WBC (Bld) 11.0 % Normal 1.7-12.0 [facility] Comment on above: Performed By: #### D DAVIDSON, MG, PHOS, CMP, LIPID, URIC #### [facility] [address] [place] [address] Dr. Sarmad Patino NEUT # 4.8 103/ul Normal 1.4-6.5 [facility] Comment on above: Performed By: #### D DAVIDSON, MG, PHOS, CMP, LIPID, URIC #### [facility] [address] [place] [address] Dr. Sarmad Patino Neutrophils/100 WBC (Bld) 69.1 % Normal 43.0-75.0 [facility] Comment on above: Performed By: #### D DAVIDSON, MG, PHOS, CMP, LIPID, URIC #### [facility] [address] [place] [address] Dr. Sarmad Patino Platelet mean volume (Bld) [Entitic vol] 10.8 fL Normal 9.5-13.5 [facility] Comment on above: Performed By: #### D DAVIDSON, MG, PHOS, CMP, LIPID, URIC #### [facility] [address] [place] [address] Dr. Sarmad Patino PLT 208 103/ul Normal 150-450 [facility] Comment on above: Performed By: #### D DAVIDSON, MG, PHOS, CMP, LIPID, URIC #### [facility] [address] [address] [address] Sarmad Patino RBC 4.94 106/ul Normal 4.20-5.40 [facility] Comment on above: Performed By: #### D DAVIDSON, MG, PHOS, CMP, LIPID, URIC #### [facility] [address] [address] [address] Sarmad Patino WBC 7.0 103/ul Normal 4.0-11.0 [facility] Comment on above: Performed By: #### D DAVIDSON, MG, PHOS, CMP, LIPID, URIC #### [facility] [address] [address] [address] Sarmad Patino GLYCOHEMOGLOBIN A1Con 2021 ADA RECOMMENDATION SEE BELOW Normal [facility] Comment on above: Result Comment: ADA RECOMMENDED LIMIT 4.0 - 6.0 ADA THERAPEUTIC TARGET < 7.0 ACTION SUGGESTED > 7.0 Performed By: #### D DAVIDSON, MG, PHOS, CMP, LIPID, URIC #### [facility] [address] [address] [address] Sarmad Patino Glucose [Mass/Vol] 137 mg/dL Normal [facility] Comment on above: Performed By: #### D DAVIDSON, MG, PHOS, CMP, LIPID, URIC #### [facility] [address] [place] [address] Dr. Sarmad Patino HbA1c (Bld) [Mass fraction] 6.4 % Critically high 4.5-6.2 [facility] Comment on above: Performed By: #### D DAVIDSON, MG, PHOS, CMP, LIPID, URIC #### [facility] [address] [place] [address] Dr. Sarmad Patino LIPID PROFILEon 01-28-2022 CHOL-HDL RATIO NORM SEE BELOW Normal [facility] Comment on above: Result Comment: 3.3 - 4.4 LOW RISK 4.4 - 7.1 AVERAGE RISK 7.1 - 11.0 MODERATE RISK >11.0 HIGH RISK Performed By: #### D DAVIDSON, MG, PHOS, CMP, LIPID, URIC #### [facility] [address] [place] [address] Dr. Sarmad Patino Cholesterol [Mass/Vol] 209 mg/dL Critically high <=200 [facility] Comment on above: Performed By: #### D DAVIDSON, MG, PHOS, CMP, LIPID, URIC #### [facility] [address] [address] [address] Sarmad Patino Cholesterol in HDL [Mass/Vol] 59 mg/dL Normal 40-60 [facility] Comment on above: Performed By: #### D DAVIDSON, MG, PHOS, CMP, LIPID, URIC #### [facility] [address] [address] [address] Sarmad Paitno Cholesterol in LDL [Mass/Vol] 100.4 mg/dL Normal [facility] Comment on above: Performed By: #### D DAVIDSON, MG, PHOS, CMP, LIPID, URIC #### [facility] [address] [address] [address] Sarmad Patino Cholesterol.total/C holesterol in HDL [Mass ratio] 3.5 {ratio} Normal [facility] Comment on above: Performed By: #### D DAVIDSON, MG, PHOS, CMP, LIPID, URIC #### [facility] [address] [address] [address] Sarmad Patino HDL NORMAL > or = 60 mg/dl - LO W CARDIOVASCULAR RISK <40 mg/dl - HIGH CARDIOVASCULAR RISK Normal [facility] Comment on above: Performed By: #### D DAVIDSON, MG, PHOS, CMP, LIPID, URIC #### [facility] [address] [address] [address] Sarmad Patino LDL CALC NORMAL SEE BELOW Normal [facility] Comment on above: Result Comment: <100 mg/dl OPTIMAL 100 - 129 mg/dl NEAR OR ABOVE OPTIMAL 130 - 159 mg/dl BORDERLINE HIGH 160 - 189 mg/dl HIGH >190 mg/dl VERY HIGH Performed By: #### D DAVIDSON, MG, PHOS, CMP, LIPID, URIC #### [facility] [address] [address] [address] Sarmad Patino Triglyceride [Mass/Vol] 248 mg/dL Critically high <=150 [facility] Comment on above: Performed By: #### D DAVIDSON, MG, PHOS, CMP, LIPID, URIC #### [facility] [address] [address] [address] Sarmad Patino VLDL CALC 49.6 mg/dL Normal [facility] Comment on above: Performed By: #### D DAVIDSON, MG, PHOS, CMP, LIPID, URIC #### [facility] [address] [address] [address] Sarmad Patino MAGNESIUMon 01-28-2022 Magnesium [Mass/Vol] 1.6 mg/dL Critically low 1.8-2.4 [facility] Comment on above: Performed By: #### D DAVIDSON, MG, PHOS, CMP, LIPID, URIC #### [facility] [address] [place] [address] Dr. Sarmad Patino PHOSPHORUSon 01-28-2022 Phosphate [Mass/Vol] 2.7 mg/dL Normal 2.6-4.7 [facility] Comment on above: Performed By: #### D DAVIDSON, MG, PHOS, CMP, LIPID, URIC #### [facility] [address] [place] [address] Dr. Sarmad Patino PROF 14(COMP METB)on 022 Albumin [Mass/Vol] 3.3 g/dL Critically low 3.4-5.0 [facility] Comment on above: Performed By: #### D DAVIDSON, MG, PHOS, CMP, LIPID, URIC #### [facility] [address] [address] [address] Sarmad Patino Albumin/Globulin [Mass ratio] 0.9 {ratio} Normal [facility] Comment on above: Performed By: #### D DAVIDSON, MG, PHOS, CMP, LIPID, URIC #### [facility] [address] [address] [address] Sarmad Patino ALP [Catalytic activity/Vol] 124 U/L Critically high 46-116 [facility] Comment on above: Performed By: #### D DAVIDSON, MG, PHOS, CMP, LIPID, URIC #### [facility] [address] [address] [address] Sarmad Patino ALT [Catalytic activity/Vol] 28 U/L Normal 14-59 [facility] Comment on above: Performed By: #### D DAVIDSON, MG, PHOS, CMP, LIPID, URIC #### [facility] [address] [address] [address] Sarmad Patino Anion gap [Moles/Vol] 12.0 mmol/L Normal [facility] Comment on above: Performed By: #### D DAVIDSON, MG, PHOS, CMP, LIPID, URIC #### [facility] [address] [address] [address] Sarmad Patino AST [Catalytic activity/Vol] 20 U/L Normal 15-37 [facility] Comment on above: Performed By: #### D DAVIDSON, MG, PHOS, CMP, LIPID, URIC #### [facility] [address] [place] [address] Dr. Sarmad Patino Bilirubin [Mass/Vol] 0.5 mg/dL Normal 0.2-1.0 [facility] Comment on above: Performed By: #### D DAVIDSON, MG, PHOS, CMP, LIPID, URIC #### [facility] [address] [place] [address] Dr. Sarmad Patino Calcium [Mass/Vol] 9.1 mg/dL Normal 8.5-10.1 [facility] Comment on above: Performed By: #### D DAVIDSON, MG, PHOS, CMP, LIPID, URIC #### [facility] [address] [place] [address] Dr. Sarmad Patino Chloride [Moles/Vol] 104 mmol/L Normal 98-107 [facility] Comment on above: Performed By: #### D DAVIDSON, MG, PHOS, CMP, LIPID, URIC #### [facility] [address] [place] [address] Dr. Sarmad Patino CO2 [Moles/Vol] 25.7 mmol/L Normal 21.0-32.0 [facility] Comment on above: Performed By: #### D DAVIDSON, MG, PHOS, CMP, LIPID, URIC #### [facility] [address] [address] [address] Sarmad Patino Creatinine [Mass/Vol] 0.77 mg/dL Normal 0.55-1.02 [facility] Comment on above: Performed By: #### D DAVIDSON, MG, PHOS, CMP, LIPID, URIC #### [facility] [address] [address] [address] Sarmad Patino EGFR-AF KOSOVAN >60 Normal >=60 [facility] Comment on above: Performed By: #### D DAVIDSON, MG, PHOS, CMP, LIPID, URIC #### [facility] [address] [address] [address] Sarmad Patino EGFR-NON AF KOSOVAN >60 Normal >=60 [facility] Comment on above: Performed By: #### D DAVIDSON, MG, PHOS, CMP, LIPID, URIC #### [facility] [address] [address] [address] Sarmad Patino Globulin (S) [Mass/Vol] 3.7 g/dL Normal [facility] Comment on above: Performed By: #### D DAVIDSON, MG, PHOS, CMP, LIPID, URIC #### [facility] [address] [place] [address] Dr. Sarmad Patino Glucose [Mass/Vol] 108 mg/dL Critically high 74-106 [facility] Comment on above: Performed By: #### D DAVIDSON, MG, PHOS, CMP, LIPID, URIC #### [facility] [address] [place] [address] Dr. Sarmad Patino Potassium [Moles/Vol] 3.7 mmol/L Normal 3.5-5.1 [facility] Comment on above: Performed By: #### D DAVIDSON, MG, PHOS, CMP, LIPID, URIC #### [facility] [address] [address] [address] Sarmad Patino Protein [Mass/Vol] 7.0 g/dL Normal 6.4-8.2 [facility] Comment on above: Performed By: #### D DAVIDSON, MG, PHOS, CMP, LIPID, URIC #### [facility] [address] [address] [address] Sarmad Patino Sodium [Moles/Vol] 138 mmol/L Normal 136-145 [facility] Comment on above: Performed By: #### D DAVIDSON, MG, PHOS, CMP, LIPID, URIC #### [facility] [address] [address] [address] Sarmad Patino Urea nitrogen [Mass/Vol] 15.0 mg/dL Normal 7.0-18.0 [facility] Comment on above: Performed By: #### D DAVIDSON, MG, PHOS, CMP, LIPID, URIC #### [facility] [address] [address] [address] Sarmad Patino Urea nitrogen/Creatinine [Mass ratio] 19.5 mg/mg Normal [facility] Comment on above: Performed By: #### D DAVIDSON, MG, PHOS, CMP, LIPID, URIC #### [facility] [address] [address] [address] Sarmad Patino URIC ACID SERUMon 01-28-2022 Urate [Mass/Vol] 4.3 mg/dL Normal 2.6-6.0 [facility] Comment on above: Performed By: #### D DAVIDSON, MG, PHOS, CMP, LIPID, URIC #### [facility] [address] [address] [address] Sarmad Patino Quick Strepon 01-12-2022 S. pyogenes Org specific cx Ql (Throat) Negative Embarke Other Quick Strep [facility] Other XR CHEST 1 Von 01-07-2022 XR [...] BRITTON BERNARD Date: 2022-01-07 15:00 Normal [facility] CBC W MANUAL DIFFon 01-04-20 22 ATYPICAL LYMPH # 1.40 103/ul Normal [facility] Comment on above: Performed By: #### D DAVIDSON, MG, PHOS, CMP, LIPID, URIC #### [facility] [address] [address] [address] Sarmad Patino ATYPICAL LYMPH % 10 % Normal [facility] Comment on above: Performed By: #### D DAVIDSON, MG, PHOS, CMP, LIPID, URIC #### [facility] [address] [address] [address] Sarmad Patino BAND # 0.6 103/ul Critically high 0.0-0.3 [facility] Comment on above: Performed By: #### D DAVIDSON, MG, PHOS, CMP, LIPID, URIC #### [facility] [address] [address] [address] Sarmad Patino BAND % 4 % Normal 0-5 [facility] Comment on above: Performed By: #### D DAVIDSON, MG, PHOS, CMP, LIPID, URIC #### [facility] [address] [address] [address] Sarmad Patino BASOM # 0.00 103/ul Normal 0.00-0.10 [facility] Comment on above: Performed By: #### D DAVIDSON, MG, PHOS, CMP, LIPID, URIC #### [facility] [address] [address] [address] Sarmad Patino BASOM % 0.0 % Critically low 0.2-2.0 [facility] Comment on above: Performed By: #### D DAVIDSON, MG, PHOS, CMP, LIPID, URIC #### [facility] [address] [address] [address] Sarmad Patino BLAST # Normal [facility] Comment on above: Performed By: #### D DAVIDSON, MG, PHOS, CMP, LIPID, URIC #### [facility] [address] [address] [address] Sarmad Patino BLAST % Normal [facility] Comment on above: Performed By: #### D DAVIDSON, MG, PHOS, CMP, LIPID, URIC #### [facility] [address] [address] [address] Sarmad Patino CORRECTED WBC Normal 4.0-11.0 [facility] Comment on above: Performed By: #### D DAVIDSON, MG, PHOS, CMP, LIPID, URIC #### [facility] [address] [address] [address] Sarmad Patino EOS # 0.14 103/ul Normal 0.00-0.70 [facility] Comment on above: Performed By: #### D DAVIDSON, MG, PHOS, CMP, LIPID, URIC #### [facility] [address] [address] [address] Sarmad Patino EOS% 1.0 % Normal 0.9-7.0 [facility] Comment on above: Performed By: #### D DAVIDSON, MG, PHOS, CMP, LIPID, URIC #### [facility] [address] [place] [address] Dr. Sarmad Patino HCT 42.8 % Normal 36.0-48.0 [facility] Comment on above: Performed By: #### D DAVIDSON, MG, PHOS, CMP, LIPID, URIC #### [facility] [address] [place] [address] Dr. Sarmad Patino HGB 14.2 g/dl Normal 12.0-16.0 [facility] Comment on above: Performed By: #### D DAVIDSON, MG, PHOS, CMP, LIPID, URIC #### [facility] [address] [address] [address] Sarmad Patino LYMPHM # 0.00 103/ul Critically low 1.20-3.80 [facility] Comment on above: Performed By: #### D DAVIDSON, MG, PHOS, CMP, LIPID, URIC #### [facility] [address] [place] [address] Dr. Sarmad Patino LYMPHM% 0.0 % Critically low 20.5-60.0 [facility] Comment on above: Performed By: #### D DAVIDSON, MG, PHOS, CMP, LIPID, URIC #### [facility] [address] [address] [address] Sarmad Patino MCH 28.8 pg Normal 26.7-34.0 [facility] Comment on above: Performed By: #### D DAVIDSON, MG, PHOS, CMP, LIPID, URIC #### [facility] [address] [address] [address] Sarmad Patino MCHC 33.2 g/dl Normal 29.9-35.2 [facility] Comment on above: Performed By: #### D DAVIDSON, MG, PHOS, CMP, LIPID, URIC #### [facility] [address] [address] [address] Sarmad Patino MCV 86.8 fL Normal 81.0-99.0 [facility] Comment on above: Performed By: #### D DAVIDSON, MG, PHOS, CMP, LIPID, URIC #### [facility] [address] [address] [address] Sarmad Patino METAMYELOCYTE # Normal [facility] Comment on above: Performed By: #### D DAVIDSON, MG, PHOS, CMP, LIPID, URIC #### [facility] [address] [address] [address] Sarmad Patino METAMYELOCYTE % Normal [facility] Comment on above: Performed By: #### D DAVIDSON, MG, PHOS, CMP, LIPID, URIC #### [facility] [address] [address] [address] Sarmad Patino MONOM# 0.84 103/ul Critically high 0.30-0.80 [facility] Comment on above: Performed By: #### D DAVIDSON, MG, PHOS, CMP, LIPID, URIC #### [facility] [address] [address] [address] Sarmad Patino MONOM% 6.0 % Normal 1.7-12.0 [facility] Comment on above: Performed By: #### D DAVIDSON, MG, PHOS, CMP, LIPID, URIC #### [facility] [address] [address] [address] Sarmad Patino MPV 11.5 fL Normal 9.5-13.5 [facility] Comment on above: Performed By: #### D DAVIDSON, MG, PHOS, CMP, LIPID, URIC #### [facility] [address] [address] [address] Sarmad Patino MYELOCYTE # 0.3 103/ul Normal [facility] Comment on above: Performed By: #### D DAVIDSON, MG, PHOS, CMP, LIPID, URIC #### [facility] [address] [address] [address] Sarmad Patino MYELOCYTE % 2 % Normal [facility] Comment on above: Performed By: #### D DAVIDSON, MG, PHOS, CMP, LIPID, URIC #### [facility] [address] [place] [address] Dr. Sarmad Patino NRBC [facility] Comment on above: Performed By: #### D DAVIDSON, MG, PHOS, CMP, LIPID, URIC #### [facility] [address] [place] [address] Dr. Sarmad Patino PLT 180 103/ul Normal 150-450 [facility] Comment on above: Performed By: #### D DAVIDSON, MG, PHOS, CMP, LIPID, URIC #### [facility] [address] [place] [address] Dr. Sarmad Patino RBC 4.93 106/ul Normal 4.20-5.40 [facility] Comment on above: Performed By: #### D DAVIDSON, MG, PHOS, CMP, LIPID, URIC #### [facility] [address] [place] [address] Dr. Sarmad Patino RDW 13.9 % Normal 11.0-15.0 [facility] Comment on above: Performed By: #### D DAVIDSON, MG, PHOS, CMP, LIPID, URIC #### [facility] [address] [place] [address] Dr. Sarmad Patino SEG # 10.78 103/ul Critically high 1.40-6.50 [facility] Comment on above: Performed By: #### D DAVIDSON, MG, PHOS, CMP, LIPID, URIC #### [facility] [address] [place] [address] Dr. Sarmad Patino SEG % 77.0 % Critically high 43.0-75.0 [facility] Comment on above: Performed By: #### D DAVIDSON, MG, PHOS, CMP, LIPID, URIC #### [facility] [address] [address] [address] Sarmad Patino WBC 14.0 103/ul Critically high 4.0-11.0 [facility] Comment on above: Performed By: #### D DAVIDSON, MG, PHOS, CMP, LIPID, URIC #### [facility] [address] [address] [address] NECK ST W [...] middle ear cavities clear. Skull base intact. Case Management Social Worker spaces normal. Parotid glands normal. Submandibular glands [...] No neck mass. Electronically authenticated by: JOSE FKEISHA HOPPER Date: 2022-01-03 10:40 Normal [facility]on SARS-CoV-2 (COVID-19) RNA MURALI+probe Ql (Unsp spec) Detected Critically abnormal NOT DETECTED [facility] Comment on above: Result Comment: This test is not yet approved or cleared by the [place] FDA. When there are no FDA-approved or cleared tests available, and other criteria are met, FDA can make tests available under an emergency access mechanism called an Emergency Use Authorization (EUA). The EUA for this test is supported by the [place] of Health and Human Service's declaration that [...] DAVIDSON, MG, PHOS, CMP, LIPID, URIC #### [facility] [address] [place] [address] Dr. Sarmad Patino GROUP A STREP CULTUREon S. pyogenes Ag Ql (Unsp spec) Culture Observations: Negative for Group A Streptococcus Normal [facility] Comment on above: Performed By: #### U MAXI, LIPID, MG, CMP, DBIL, PHOS #### [facility] [address] [address] [address] Sarmad Patino INFLUENZA A AND B AGon 01-03 INFLUENZA A AG Negative Normal NEGATIVE SEE COMMENT [facility] Comment on above: Performed By: #### D DAVIDSON, MG, PHOS, CMP, LIPID, URIC #### [facility] [address] [place] [address] Dr. Sarmad Patino INFLUENZA B AG Negative Normal NEGATIVE SEE COMMENT [facility] Comment on above: Performed By: #### D DAVIDSON, MG, PHOS, CMP, LIPID, URIC #### [facility] [address] [place] [address] Dr. Sarmad Patino INTERNAL CONTROLS Within Normal Limits Normal Wi thin Normal Limits [facility] Comment on above: Performed By: #### D DAVIDSON, MG, PHOS, CMP, LIPID, URIC #### [facility] [address] [address] [address] Sarmad Patino PROF 14(COMP METB)on 022 Albumin [Mass/Vol] 2.5 g/dL Critically low 3.4-5.0 [facility] Comment on above: Performed By: #### U MAXI, LIPID, MG, CMP, DBIL, PHOS #### [facility] [address] [address] [address] Sarmad Patino Albumin/Globulin [Mass ratio] 0.5 {ratio} Normal [facility] Comment on above: Performed By: #### U MAXI, LIPID, MG, CMP, DBIL, PHOS #### [facility] [address] [place] [address] Dr. Sarmad Patino ALP [Catalytic activity/Vol] 185 U/L Critically high 46-116 [facility] Comment on above: Performed By: #### U MAXI, LIPID, MG, CMP, DBIL, PHOS #### [facility] [address] [place] [address] Dr. Sarmad Patino ALT [Catalytic activity/Vol] 108 U/L Critically high 14-59 [facility] Comment on above: Performed By: #### U MAXI, LIPID, MG, CMP, DBIL, PHOS #### [facility] [address] [address] [address] Sarmad Patino Anion gap [Moles/Vol] 8.3 mmol/L Normal [facility] Comment on above: Performed By: #### U MAXI, LIPID, MG, CMP, DBIL, PHOS #### [facility] [address] [place] [address] Dr. Sarmad Patino AST [Catalytic activity/Vol] 59 U/L Critically high 15-37 [facility] Comment on above: Performed By: #### U MAXI, LIPID, MG, CMP, DBIL, PHOS #### [facility] [address] [place] [address] Dr. Sarmad Patino Bilirubin [Mass/Vol] 0.6 mg/dL Normal 0.2-1.0 [facility] Comment on above: Performed By: #### U MAXI, LIPID, MG, CMP, DBIL, PHOS #### [facility] [address] [address] [address] Sarmad Patino Calcium [Mass/Vol] 9.0 mg/dL Normal 8.5-10.1 [facility] Comment on above: Performed By: #### U MAXI, LIPID, MG, CMP, DBIL, PHOS #### [facility] [address] [address] [address] Sarmad Patino Chloride [Moles/Vol] 100 mmol/L Normal 98-107 [facility] Comment on above: Performed By: #### U MAXI, LIPID, MG, CMP, DBIL, PHOS #### [facility] [address] [address] [address] Sarmad Patino CO2 [Moles/Vol] 29.0 mmol/L Normal 21.0-32.0 [facility] Comment on above: Performed By: #### U MAXI, LIPID, MG, CMP, DBIL, PHOS #### [facility] [address] [address] [address] Sarmad Patino Creatinine [Mass/Vol] 1.05 mg/dL Critically high 0.55-1.02 [facility] Comment on above: Performed By: #### U MAXI, LIPID, MG, CMP, DBIL, PHOS #### [facility] [address] [address] [address] Sarmad Patino EGFR-AF KOSOVAN >60 Normal >=60 [facility] Comment on above: Performed By: #### U MAXI, LIPID, MG, CMP, DBIL, PHOS #### [facility] [address] [address] [address] Sarmad Patino EGFR-NON AF KOSOVAN 53 mL/min/1.73m2 Critically low >=60 [facility] Comment on above: Performed By: #### U MAXI, LIPID, MG, CMP, DBIL, PHOS #### [facility] [address] [place] [address] Dr. Sarmad Patino Globulin (S) [Mass/Vol] 4.6 g/dL Normal [facility] Comment on above: Performed By: #### U MAXI, LIPID, MG, CMP, DBIL, PHOS #### [facility] [address] [place] [address] Dr. Sarmad Patino Glucose [Mass/Vol] 154 mg/dL Critically high 74-106 [facility] Comment on above: Performed By: #### U MAXI, LIPID, MG, CMP, DBIL, PHOS #### [facility] [address] [place] [address] Dr. Sarmad Patino Potassium [Moles/Vol] 3.3 mmol/L Critically low 3.5-5.1 [facility] Comment on above: Performed By: #### U MAXI, LIPID, MG, CMP, DBIL, PHOS #### [facility] [address] [place] [address] Dr. Sarmad Patino Protein [Mass/Vol] 7.1 g/dL Normal 6.4-8.2 [facility] Comment on above: Performed By: #### U MAXI, LIPID, MG, CMP, DBIL, PHOS #### [facility] [address] [place] [address] Dr. Sarmad Patino Sodium [Moles/Vol] 134 mmol/L Critically low 136-145 [facility] Comment on above: Performed By: #### U MAXI, LIPID, MG, CMP, DBIL, PHOS #### [facility] [address] [place] [address] Dr. Sarmad Patino Urea nitrogen [Mass/Vol] 24.0 mg/dL Critically high 7.0-18.0 [facility] Comment on above: Performed By: #### U MAXI, LIPID, MG, CMP, DBIL, PHOS #### [facility] [address] [place] [address] Dr. Sarmad Patino Urea nitrogen/Creatinine [Mass ratio] 22.9 mg/mg Normal [facility] Comment on above: Performed By: #### U MAXI, LIPID, MG, CMP, DBIL, PHOS #### [facility] [address] [place], [place] [address] Dr. Sarmad Patino STREPT SCREENon 01-03-2022 STREP SCREEN A Negative Normal NEGATIVE [facility] Comment on above: Performed By: #### U MAXI, LIPID, MG, CMP, DBIL, PHOS #### [facility] [address] [place], [place] [address] Dr. Sarmad Patino XR CHEST 2 Von [...] MAYRA WHITESIDE Date: 2022-01-03 03:54 Normal [facility] Quick Strepon 12-28-2021 S. pyogenes Org specific cx Ql (Throat) Negative [facility] Other Quick Strep [facility] Other SARS-CoV-2 (COVID-19) RNA NA A+probe Ql (Resp)on 12-25-2021 SARS-CoV-2 (COVID-19) RNA MURALI+probe Ql (Unsp spec) Negative [facility] Other FK506 (TACROLIMUS) WHOLE BLO ODon 12-08-2021 Tacrolimus (FK506), Blood 6.6 ng/mL Normal 2.0-20.0 [facility] Comment on above: Result Comment: Trou gh (immediately following transplant) 15.0 . Trough (steady state, 2 weeks or more after transplant): 3.0 - 8.0 . Performed by LC-MS/MS technology. Performed By: #### D DAVIDSON, MG, PHOS, CMP, LIPID, URIC #### [facility] [address] [address] [address] Sarmad Patino RAPAMUNE(SIROLIMUS)on 2021 Rapamune(Sirolimus) , whole blood 9.6 ng/mL Normal 3.0-20.0 [facility] Comment on above: Result Comment: Perf ormed by LC/MS-MS technology . This test was developed and its performance characteristics determined by [employer]. It has not been cleared or approved by the Food and Drug Administration. Performed By: #### D DAVIDSON, MG, PHOS, CMP, LIPID, URIC #### [facility] [address] [place] [address] Dr. Sarmad Patino BILIRUBIN CONJUGATED (DIRECT )on 12-05-2021 BILI, CONJUGATED 0.1 mg/dL Normal 0.0-0.2 [facility] Comment on above: Performed By: #### D DAVIDSON, MG, PHOS, CMP, LIPID, URIC #### [facility] [address] [place] [address] Dr. Sarmad Patino CBC W MANUAL DIFFon 12-06-19 22 ATYPICAL LYMPH # Normal [facility] Comment on above: Performed By: #### D DAVIDSON, MG, PHOS, CMP, LIPID, URIC #### [facility] [address] [place] [address] Dr. Sarmad Patino ATYPICAL LYMPH % Normal [facility] Comment on above: Performed By: #### D DAVIDSON, MG, PHOS, CMP, LIPID, URIC #### [facility] [address] [place] [address] Dr. Sarmad Patino BAND # Normal 0.0-0.3 [facility] Comment on above: Performed By: #### D DAVIDSON, MG, PHOS, CMP, LIPID, URIC #### [facility] [address] [place] [address] Dr. Sarmad Patino BAND % Normal 0-5 [facility] Comment on above: Performed By: #### D DAVIDSON, MG, PHOS, CMP, LIPID, URIC #### [facility] [address] [place], [place] [id number] Dr. Sarmad Patino BASOM # 0.00 103/ul Normal 0.00-0.10 [facility] Comment on above: Performed By: #### D DAVIDSON, MG, PHOS, CMP, LIPID, URIC #### [facility] [address] [address] [address] Sarmad Patino BASOM % 0.0 % Critically low 0.2-2.0 [facility] Comment on above: Performed By: #### D DAVIDSON, MG, PHOS, CMP, LIPID, URIC #### [facility] [address] [place] [address] Dr. Sarmad Patino BLAST # Normal [facility] Comment on above: Performed By: #### D DAVIDSON, MG, PHOS, CMP, LIPID, URIC #### [facility] [address] [place] [address] Dr. Sarmad Patino BLAST % Normal [facility] Comment on above: Performed By: #### D DAVIDSON, MG, PHOS, CMP, LIPID, URIC #### [facility] [address] [place] [address] Dr. Sarmad Patino CORRECTED WBC Normal 4.0-11.0 [facility] Comment on above: Performed By: #### D DAVIDSON, MG, PHOS, CMP, LIPID, URIC #### [facility] [address] [place] [address] Dr. Sarmad Patino EOS # 0.15 103/ul Normal 0.00-0.70 [facility] Comment on above: Performed By: #### D DAVIDSON, MG, PHOS, CMP, LIPID, URIC #### [facility] [address] [address] [address] Sarmad Patino EOS% 2.0 % Normal 0.9-7.0 [facility] Comment on above: Performed By: #### D DAVIDSON, MG, PHOS, CMP, LIPID, URIC #### [facility] [address] [place] [address] Dr. Sarmad Patino HCT 47.5 % Normal 36.0-48.0 [facility] Comment on above: Performed By: #### D DAVIDSON, MG, PHOS, CMP, LIPID, URIC #### [facility] [address] [address] [address] Sarmad Patino HGB 15.6 g/dl Normal 12.0-16.0 [facility] Comment on above: Performed By: #### D DAVIDSON, MG, PHOS, CMP, LIPID, URIC #### [facility] [address] [place] [address] Dr. Sarmad Patino LYMPHM # 1.46 103/ul Normal 1.20-3.80 [facility] Comment on above: Performed By: #### D DAVIDSON, MG, PHOS, CMP, LIPID, URIC #### [facility] [address] [place] [address] Dr. Sarmad Patino LYMPHM% 19.0 % Critically low 20.5-60.0 [facility] Comment on above: Performed By: #### D DAVIDSON, MG, PHOS, CMP, LIPID, URIC #### [facility] [address] [place] [address] Dr. Sarmad Patino MCH 28.9 pg Normal 26.7-34.0 [facility] Comment on above: Performed By: #### D DAVIDSON, MG, PHOS, CMP, LIPID, URIC #### [facility] [address] [place] [address] Dr. Sarmad Patino MCHC 32.8 g/dl Normal 29.9-35.2 [facility] Comment on above: Performed By: #### D DAVIDSON, MG, PHOS, CMP, LIPID, URIC #### [facility] [address] [place] [address] Dr. Sarmad Patino MCV 88.1 fL Normal 81.0-99.0 [facility] Comment on above: Performed By: #### D DAVIDSON, MG, PHOS, CMP, LIPID, URIC #### [facility] [address] [place] [address] Dr. Sarmad Patino METAMYELOCYTE # Normal [facility] Comment on above: Performed By: #### D DAVIDSON, MG, PHOS, CMP, LIPID, URIC #### [facility] [address] [address] [address] Sarmad Patino METAMYELOCYTE % Normal [facility] Comment on above: Performed By: #### D DAVIDSON, MG, PHOS, CMP, LIPID, URIC #### [facility] [address] [address] [address] Sarmad Patino MONOM# 0.85 103/ul Critically high 0.30-0.80 [facility] Comment on above: Performed By: #### D DAVIDSON, MG, PHOS, CMP, LIPID, URIC #### [facility] [address] [place] [address] Dr. Sarmad Patino MONOM% 11.0 % Normal 1.7-12.0 [facility] Comment on above: Performed By: #### D DAVIDSON, MG, PHOS, CMP, LIPID, URIC #### [facility] [address] [place] [address] Dr. Sarmad Patino MPV 11.3 fL Normal 9.5-13.5 [facility] Comment on above: Performed By: #### D DAVIDSON, MG, PHOS, CMP, LIPID, URIC #### [facility] [address] [place] [address] Dr. Sarmad Patino MYELOCYTE # Normal [facility] Comment on above: Performed By: #### D DAVIDSON, MG, PHOS, CMP, LIPID, URIC #### [facility] [address] [place] [address] Dr. Sarmad Patino MYELOCYTE % Normal [facility] Comment on above: Performed By: #### D DAVIDSON, MG, PHOS, CMP, LIPID, URIC #### [facility] [address] [place] [address] Dr. Sarmad Patino NRBC Normal [facility] Comment on above: Performed By: #### D DAVIDSON, MG, PHOS, CMP, LIPID, URIC #### [facility] [address] [place] [address] Dr. Sarmad Patino PLT 214 103/ul Normal 150-450 [facility] Comment on above: Performed By: #### D DAVIDSON, MG, PHOS, CMP, LIPID, URIC #### [facility] [address] [address] [address] Sarmad Patino RBC 5.39 106/ul Normal 4.20-5.40 [facility] Comment on above: Performed By: #### D DAVIDSON, MG, PHOS, CMP, LIPID, URIC #### [facility] [address] [place] [address] Dr. Sarmad Patino RDW 13.8 % Normal 11.0-15.0 [facility] Comment on above: Performed By: #### D DAVIDSON, MG, PHOS, CMP, LIPID, URIC #### [facility] [address] [address] [address] Sarmad Patino SEG # 5.24 103/ul Normal 1.40-6.50 [facility] Comment on above: Performed By: #### D DAVIDSON, MG, PHOS, CMP, LIPID, URIC #### [facility] [address] [place] [address] Dr. Sarmad Patino SEG % 68.0 % Normal 43.0-75.0 [facility] Comment on above: Performed By: #### D DAVIDSON, MG, PHOS, CMP, LIPID, URIC #### [facility] [address] [address] [address] Sarmad Patino WBC 7.7 103/ul Normal 4.0-11.0 [facility] Comment on above: Performed By: #### D DAVIDSON, MG, PHOS, CMP, LIPID, URIC #### [facility] [address] [place] [address] Dr. Sarmad Patino LIPID PROFILEon 12-05-2021 CHOL-HDL RATIO NORM SEE BELOW Normal [facility] Comment on above: Result Comment: 3.3 - 4.4 LOW RISK 4.4 - 7.1 AVERAGE RISK 7.1 - 11.0 MODERATE RISK >11.0 HIGH RISK Performed By: #### D DAVIDSON, MG, PHOS, CMP, LIPID, URIC #### [facility] [address] [place] [address] Dr. Sarmad Patino Cholesterol [Mass/Vol] 170 mg/dL Normal <=200 [facility] Comment on above: Performed By: #### D DAVIDSON, MG, PHOS, CMP, LIPID, URIC #### [facility] [address] [address] [address] Sarmad Patino Cholesterol in HDL [Mass/Vol] 54 mg/dL Normal 40-60 [facility] Comment on above: Performed By: #### D DAVIDSON, MG, PHOS, CMP, LIPID, URIC #### [facility] [address] [address] [address] Sarmad Patino Cholesterol in LDL [Mass/Vol] 92.2 mg/dL Normal [facility] Comment on above: Performed By: #### D DAVIDSON, MG, PHOS, CMP, LIPID, URIC #### [facility] [address] [address] [address] Sarmad Patino Cholesterol.total/C holesterol in HDL [Mass ratio] 3.1 {ratio} Normal [facility] Comment on above: Performed By: #### D DAVIDSON, MG, PHOS, CMP, LIPID, URIC #### [facility] [address] [address] [address] Sarmad Patino HDL NORMAL > or = 60 mg/dl - LO W CARDIOVASCULAR RISK <40 mg/dl - HIGH CARDIOVASCULAR RISK Normal [facility] Comment on above: Performed By: #### D DAVIDSON, MG, PHOS, CMP, LIPID, URIC #### [facility] [address] [address] [address] Sarmad Patino LDL CALC NORMAL SEE BELOW Normal [facility] Comment on above: Result Comment: <100 mg/dl OPTIMAL 100 - 129 mg/dl NEAR OR ABOVE OPTIMAL 130 - 159 mg/dl BORDERLINE HIGH 160 - 189 mg/dl HIGH >190 mg/dl VERY HIGH Performed By: #### D DAVIDSON, MG, PHOS, CMP, LIPID, URIC #### [facility] [address] [address] [address] Sarmad Patino Triglyceride [Mass/Vol] 119 mg/dL Normal <=150 [facility] Comment on above: Performed By: #### D DAVIDSON, MG, PHOS, CMP, LIPID, URIC #### [facility] [address] [address] [address] Sarmad Patino VLDL CALC 23.8 mg/dL Normal [facility] Comment on above: Performed By: #### D DAVIDSON, MG, PHOS, CMP, LIPID, URIC #### [facility] [address] [place] [address] Dr. Sarmad Patino MAGNESIUMon 12-05-2021 Magnesium [Mass/Vol] 1.8 mg/dL Normal 1.8-2.4 [facility] Comment on above: Performed By: #### D DAVIDSON, MG, PHOS, CMP, LIPID, URIC #### [facility] [address] [place] [address] Dr. Sarmad Patino PHOSPHORUSon 12-05-2021 Phosphate [Mass/Vol] 3.8 mg/dL Normal 2.6-4.7 [facility] Comment on above: Performed By: #### D DAVIDSON, MG, PHOS, CMP, LIPID, URIC #### [facility] [address] [place] [address] Dr. Sarmad Patino PROF 14(COMP METB)on 022 Albumin [Mass/Vol] 3.7 g/dL Normal 3.4-5.0 [facility] Comment on above: Performed By: #### D DAVIDSON, MG, PHOS, CMP, LIPID, URIC #### [facility] [address] [place] [address] Dr. Sarmad Patino Albumin/Globulin [Mass ratio] 1.0 {ratio} Normal [facility] Comment on above: Performed By: #### D DAVIDSON, MG, PHOS, CMP, LIPID, URIC #### [facility] [address] [place] [address] Dr. Sarmad Patino ALP [Catalytic activity/Vol] 151 U/L Critically high 46-116 [facility] Comment on above: Performed By: #### D DAVIDSON, MG, PHOS, CMP, LIPID, URIC #### [facility] [address] [place] [address] Dr. Sarmad Patino ALT [Catalytic activity/Vol] 27 U/L Normal 14-59 [facility] Comment on above: Performed By: #### D DAVIDSON, MG, PHOS, CMP, LIPID, URIC #### [facility] [address] [place] [address] Dr. Sarmad Patino Anion gap [Moles/Vol] 14.5 mmol/L Normal [facility] Comment on above: Performed By: #### D DAVIDSON, MG, PHOS, CMP, LIPID, URIC #### [facility] [address] [place] [address] Dr. Sarmad Patino AST [Catalytic activity/Vol] 25 U/L Normal 15-37 [facility] Comment on above: Performed By: #### D DAVIDSON, MG, PHOS, CMP, LIPID, URIC #### [facility] [address] [place] [address] Dr. Sarmad Patino Bilirubin [Mass/Vol] 0.4 mg/dL Normal 0.2-1.0 [facility] Comment on above: Performed By: #### D DAVIDSON, MG, PHOS, CMP, LIPID, URIC #### [facility] [address] [place] [address] Dr. Sarmad Patino Calcium [Mass/Vol] 9.4 mg/dL Normal 8.5-10.1 [facility] Comment on above: Performed By: #### D DAVIDSON, MG, PHOS, CMP, LIPID, URIC #### [facility] [address] [place] [address] Dr. Sarmad Patino Chloride [Moles/Vol] 103 mmol/L Normal 98-107 [facility] Comment on above: Performed By: #### D DAVIDSON, MG, PHOS, CMP, LIPID, URIC #### [facility] [address] [place] [address] Dr. Sarmad Patino CO2 [Moles/Vol] 26.5 mmol/L Normal 21.0-32.0 [facility] Comment on above: Performed By: #### D DAVIDSON, MG, PHOS, CMP, LIPID, URIC #### [facility] [address] [place] [address] Dr. Sarmad Patino Creatinine [Mass/Vol] 0.87 mg/dL Normal 0.55-1.02 [facility] Comment on above: Performed By: #### D DAVIDSON, MG, PHOS, CMP, LIPID, URIC #### [facility] [address] [address] [address] Sarmad Patino EGFR-AF KOSOVAN >60 Normal >=60 [facility] Comment on above: Performed By: #### D DAVIDSON, MG, PHOS, CMP, LIPID, URIC #### [facility] [address] [address] [address] Sarmad Patino EGFR-NON AF KOSOVAN >60 Normal >=60 [facility] Comment on above: Performed By: #### D DAVIDSON, MG, PHOS, CMP, LIPID, URIC #### [facility] [address] [address] [address] Sarmad Patino Globulin (S) [Mass/Vol] 3.8 g/dL Normal [facility] Comment on above: Performed By: #### D DAVIDSON, MG, PHOS, CMP, LIPID, URIC #### [facility] [address] [address] [address] Sarmad Patino Glucose [Mass/Vol] 104 mg/dL Normal 74-106 [facility] Comment on above: Performed By: #### D DAVIDSON, MG, PHOS, CMP, LIPID, URIC #### [facility] [address] [address] [address] Sarmad Patino Potassium [Moles/Vol] 4.0 mmol/L Normal 3.5-5.1 [facility] Comment on above: Performed By: #### D DAVIDSON, MG, PHOS, CMP, LIPID, URIC #### [facility] [address] [address] [address] Sarmad Patino Protein [Mass/Vol] 7.5 g/dL Normal 6.4-8.2 [facility] Comment on above: Performed By: #### D DAVIDSON, MG, PHOS, CMP, LIPID, URIC #### [facility] [address] [address] [address] Sarmad Patino Sodium [Moles/Vol] 140 mmol/L Normal 136-145 [facility] Comment on above: Performed By: #### D DAVIDSON, MG, PHOS, CMP, LIPID, URIC #### [facility] [address] [place] [address] Dr. Sarmad Patino Urea nitrogen [Mass/Vol] 19.0 mg/dL Critically high 7.0-18.0 [facility] Comment on above: Performed By: #### D DAVIDSON, MG, PHOS, CMP, LIPID, URIC #### [facility] [address] [place] [address] Dr. Sarmad Patino Urea nitrogen/Creatinine [Mass ratio] 21.8 mg/mg Normal [facility] Comment on above: Performed By: #### D DAVIDSON, MG, PHOS, CMP, LIPID, URIC #### [facility] [address] [place] [address] Dr. Sarmad Patino URIC ACID SERUMon 12-05-2021 Urate [Mass/Vol] 5.2 mg/dL Normal 2.6-6.0 [facility] Comment on above: Performed By: #### D DAVIDSON, MG, PHOS, CMP, LIPID, URIC #### [facility] [address] [place] [address] Dr. Sarmad SALAZAROLIMU, WHOLE BLOODon EVEROLIMUS 7.0 ng/mL Normal 3.0-8.0 [facility] Comment on above: Result Comment: Perf ormed by LC-MS/MS technology. Performed By: #### D DAVIDSON, MG, PHOS, CMP, LIPID, URIC #### [facility] [address] [place] [address] Dr. Sarmad Patino FK506 (TACROLIMUS) WHOLE BLO ODon 11-10-2021 Tacrolimus (FK506), Blood 6.4 ng/mL Normal 2.0-20.0 [facility] Comment on above: Result Comment: Trou gh (immediately following transplant) 15.0 . Trough (steady state, 2 weeks or more after transplant): 3.0 - 8.0 . Performed by LC-MS/MS technology. Performed By: #### D DAVIDSON, MG, PHOS, CMP, LIPID, URIC #### [facility] [address] [place] [address] Dr. Sarmad Patino BK VIRUS PCR QUANTon 022 BKV DNA QUANT PCR PLASMA Negative Normal Negative [facility] Comment on above: Result Comment: No B K DNA detected. . The linear range of the assay is 22 - 100,000,000 IU/mL. Performed By: #### U MAXI, LIPID, MG, CMP, DBIL, PHOS #### [facility] [address] [place] [address] Dr. Sarmad Patino Log10 BKV DNA Plasma Normal [facility] Comment on above: Performed By: #### U MAXI, LIPID, MG, CMP, DBIL, PHOS #### [facility] [address] [place] [address] Dr. Sarmad Patino BILIRUBIN CONJUGATED (DIRECT )on 11-07-2021 BILI, CONJUGATED 0.1 mg/dL Normal 0.0-0.2 [facility] Comment on above: Performed By: #### D DAVIDSON, MG, PHOS, CMP, LIPID, URIC #### [facility] [address] [place] [address] Dr. Sarmad Patino CBC AUTO DIFFon 11-07-2021 BASO # 0.0 103/ul Normal 0.0-0.1 [facility] Comment on above: Performed By: #### D DAVIDOSN, MG, PHOS, CMP, LIPID, URIC #### [facility] [address] [place] [address] Dr. Sarmad Patino Basophils/100 WBC (Bld) 0.3 % Normal 0.2-2.0 [facility] Comment on above: Performed By: #### D DAVIDSON, MG, PHOS, CMP, LIPID, URIC #### [facility] [address] [place] [address] Dr. Sarmad Patino EO # 0.1 103/ul Normal 0.0-0.7 [facility] Comment on above: Performed By: #### D DAVIDSON, MG, PHOS, CMP, LIPID, URIC #### [facility] [address] [place] [address] Dr. Sarmad Patino Eosinophils/100 WBC (Bld) 2.1 % Normal 0.9-7.0 [facility] Comment on above: Performed By: #### D DAVIDSON, MG, PHOS, CMP, LIPID, URIC #### [facility] [address] [place] [address] Dr. Sarmad Patino Erythrocyte distribution width (RBC) [Ratio] 13.5 % Normal 11.0-15.0 [facility] Comment on above: Performed By: #### D DAVIDSON, MG, PHOS, CMP, LIPID, URIC #### [facility] [address] [place] [address] Dr. Sarmad Patino Hematocrit (Bld) [Volume fraction] 46.7 % Normal 36.0-48.0 [facility] Comment on above: Performed By: #### D DAVIDSON, MG, PHOS, CMP, LIPID, URIC #### [facility] [address] [place] [address] Dr. Sarmad Patino Hemoglobin (Bld) [Mass/Vol] 15.1 g/dL Normal 12.0-16.0 [facility] Comment on above: Performed By: #### D DAVIDSON, MG, PHOS, CMP, LIPID, URIC #### [facility] [address] [place] [address] Dr. Sarmad Patino IG # 0.03 10e3/ul Normal 0.00-0.03 [facility] Comment on above: Performed By: #### D DAVIDSON, MG, PHOS, CMP, LIPID, URIC #### [facility] [address] [place] [address] Dr. Sarmad Patino IG % 0.5 % Normal 0.0-0.5 [facility] Comment on above: Performed By: #### D DAVIDSON, MG, PHOS, CMP, LIPID, URIC #### [facility] [address] [place] [address] Dr. Sarmad Patino LYMPH # 1.3 103/ul Normal 1.2-3.8 [facility] Comment on above: Performed By: #### D DAVIDSON, MG, PHOS, CMP, LIPID, URIC #### [facility] [address] [place] [address] Dr. Sarmad Patino Lymphocytes/100 WBC (Bld) 19.9 % Critically low 20.5-60.0 [facility] Comment on above: Performed By: #### D DAVIDSON, MG, PHOS, CMP, LIPID, URIC #### [facility] [address] [place] [address] Dr. Sarmad Patino MANUAL DIFF REQ NO Normal [facility] Comment on above: Performed By: #### D DAVIDSON, MG, PHOS, CMP, LIPID, URIC #### [facility] [address] [place] [address] Dr. Sarmad Patino MCH (RBC) [Entitic mass] 28.6 pg Normal 26.7-34.0 [facility] Comment on above: Performed By: #### D DAVIDSON, MG, PHOS, CMP, LIPID, URIC #### [facility] [address] [place] [address] Dr. Sarmad Patino MCHC (RBC) [Mass/Vol] 32.3 g/dL Normal 29.9-35.2 [facility] Comment on above: Performed By: #### D DAVIDSON, MG, PHOS, CMP, LIPID, URIC #### [facility] [address] [place] [address] Dr. Sarmad Patino MCV (RBC) [Entitic vol] 88.4 fL Normal 81.0-99.0 [facility] Comment on above: Performed By: #### D DAVIDSON, MG, PHOS, CMP, LIPID, URIC #### [facility] [address] [place] [address] Dr. Sarmad Patino MONO # 0.8 103/ul Normal 0.3-0.8 [facility] Comment on above: Performed By: #### D DAVIDSON, MG, PHOS, CMP, LIPID, URIC #### [facility] [address] [place] [address] Dr. Sarmad Patino Monocytes/100 WBC (Bld) 12.9 % Critically high 1.7-12.0 [facility] Comment on above: Performed By: #### D DAVIDSON, MG, PHOS, CMP, LIPID, URIC #### [facility] [address] [place] [address] Dr. Sarmad Patino NEUT # 4.0 103/ul Normal 1.4-6.5 [facility] Comment on above: Performed By: #### D DAVIDSON, MG, PHOS, CMP, LIPID, URIC #### [facility] [address] [address] [address] Sarmad Patino Neutrophils/100 WBC (Bld) 64.3 % Normal 43.0-75.0 [facility] Comment on above: Performed By: #### D DAVIDSON, MG, PHOS, CMP, LIPID, URIC #### [facility] [address] [address] [address] Sarmad Patino Platelet mean volume (Bld) [Entitic vol] 11.3 fL Normal 9.5-13.5 [facility] Comment on above: Performed By: #### D DAVIDSON, MG, PHOS, CMP, LIPID, URIC #### [facility] [address] [address] [address] Sarmad Patino PLT 241 103/ul Normal 150-450 [facility] Comment on above: Performed By: #### D DAVIDSON, MG, PHOS, CMP, LIPID, URIC #### [facility] [address] [address] [address] Sarmad Patino RBC 5.28 106/ul Normal 4.20-5.40 [facility] Comment on above: Performed By: #### D DAVIDSON, MG, PHOS, CMP, LIPID, URIC #### [facility] [address] [place] [address] Dr. Sarmad Patino WBC 6.3 103/ul Normal 4.0-11.0 [facility] Comment on above: Performed By: #### D DAVIDSON, MG, PHOS, CMP, LIPID, URIC #### [facility] [address] [place] [address] Dr. Sarmad Patino GLYCOHEMOGLOBIN A1Con 2021 ADA RECOMMENDATION SEE BELOW Normal [facility] Comment on above: Result Comment: ADA RECOMMENDED LIMIT 4.0 - 6.0 ADA THERAPEUTIC TARGET < 7.0 ACTION SUGGESTED > 7.0 Performed By: #### D DAVIDSON, MG, PHOS, CMP, LIPID, URIC #### [facility] [address] [place] [address] Dr. Sarmad Patino Glucose [Mass/Vol] 120 mg/dL Normal [facility] Comment on above: Performed By: #### D DAVIDSON, MG, PHOS, CMP, LIPID, URIC #### [facility] [address] [address] [address] Sarmad Patino HbA1c (Bld) [Mass fraction] 5.8 % Normal 4.5-6.2 [facility] Comment on above: Performed By: #### D DAVIDSON, MG, PHOS, CMP, LIPID, URIC #### [facility] [address] [address] [address] Sarmad Patino LIPID PROFILEon 11-07-2021 CHOL-HDL RATIO NORM SEE BELOW Normal [facility] Comment on above: Result Comment: 3.3 - 4.4 LOW RISK 4.4 - 7.1 AVERAGE RISK 7.1 - 11.0 MODERATE RISK >11.0 HIGH RISK Performed By: #### D DAVIDSON, MG, PHOS, CMP, LIPID, URIC #### [facility] [address] [place] [address] Dr. Sarmad Patino Cholesterol [Mass/Vol] 157 mg/dL Normal <=200 [facility] Comment on above: Performed By: #### D DAVIDSON, MG, PHOS, CMP, LIPID, URIC #### [facility] [address] [address] [address] Sarmad Patino Cholesterol in HDL [Mass/Vol] 48 mg/dL Normal 40-60 [facility] Comment on above: Performed By: #### D DAVIDSON, MG, PHOS, CMP, LIPID, URIC #### [facility] [address] [address] [address] Sarmad Patino Cholesterol in LDL [Mass/Vol] 89.6 mg/dL Normal [facility] Comment on above: Performed By: #### D DAVIDSON, MG, PHOS, CMP, LIPID, URIC #### [facility] [address] [place] [address] Dr. Sarmad Patino Cholesterol.total/C holesterol in HDL [Mass ratio] 3.3 {ratio} Normal [facility] Comment on above: Performed By: #### D DAVIDSON, MG, PHOS, CMP, LIPID, URIC #### [facility] [address] [address] [address] Sarmad Patino HDL NORMAL > or = 60 mg/dl - LO W CARDIOVASCULAR RISK <40 mg/dl - HIGH CARDIOVASCULAR RISK Normal [facility] Comment on above: Performed By: #### D DAVIDSON, MG, PHOS, CMP, LIPID, URIC #### [facility] [address] [address] [address] Sarmad Patino LDL CALC NORMAL SEE BELOW Normal [facility] Comment on above: Result Comment: <100 mg/dl OPTIMAL 100 - 129 mg/dl NEAR OR ABOVE OPTIMAL 130 - 159 mg/dl BORDERLINE HIGH 160 - 189 mg/dl HIGH >190 mg/dl VERY HIGH Performed By: #### D DAVIDSON, MG, PHOS, CMP, LIPID, URIC #### [facility] [address] [place] [address] Dr. Sarmad Patino Triglyceride [Mass/Vol] 97 mg/dL Normal <=150 [facility] Comment on above: Performed By: #### D DAVIDSON, MG, PHOS, CMP, LIPID, URIC #### [facility] [address] [address] [address] Sarmad Patino VLDL CALC 19.4 mg/dL Normal [facility] Comment on above: Performed By: #### D DAVIDSON, MG, PHOS, CMP, LIPID, URIC #### [facility] [address] [place] [address] Dr. Sarmad Patino MAGNESIUMon 11-07-2021 Magnesium [Mass/Vol] 1.9 mg/dL Normal 1.8-2.4 [facility] Comment on above: Performed By: #### D DAVIDSON, MG, PHOS, CMP, LIPID, URIC #### [facility] [address] [address] [address] Sarmad Patino PHOSPHORUSon 11-07-2021 Phosphate [Mass/Vol] 3.4 mg/dL Normal 2.6-4.7 [facility] Comment on above: Performed By: #### D DAVIDSON, MG, PHOS, CMP, LIPID, URIC #### [facility] [address] [address] [address] Sarmad Patino PROF 14(COMP METB)on 022 Albumin [Mass/Vol] 3.6 g/dL Normal 3.4-5.0 [facility] Comment on above: Performed By: #### D DAVIDSON, MG, PHOS, CMP, LIPID, URIC #### [facility] [address] [address] [address] Sarmad Patino Albumin/Globulin [Mass ratio] 0.9 {ratio} Normal [facility] Comment on above: Performed By: #### D DAVIDSON, MG, PHOS, CMP, LIPID, URIC #### [facility] [address] [address] [address] Sarmad Patino ALP [Catalytic activity/Vol] 158 U/L Critically high 46-116 [facility] Comment on above: Performed By: #### D DAVIDSON, MG, PHOS, CMP, LIPID, URIC #### [facility] [address] [place] [address] Dr. Sarmad Patino ALT [Catalytic activity/Vol] 23 U/L Normal 14-59 [facility] Comment on above: Performed By: #### D DAVIDSON, MG, PHOS, CMP, LIPID, URIC #### [facility] [address] [address] [address] Sarmad Patino Anion gap [Moles/Vol] 14.8 mmol/L Normal [facility] Comment on above: Performed By: #### D DAVIDSON, MG, PHOS, CMP, LIPID, URIC #### [facility] [address] [address] [address] Sarmad Patino AST [Catalytic activity/Vol] 18 U/L Normal 15-37 [facility] Comment on above: Performed By: #### D DAVIDSON, MG, PHOS, CMP, LIPID, URIC #### [facility] [address] [address] [address] Sarmad Patino Bilirubin [Mass/Vol] 0.4 mg/dL Normal 0.2-1.0 [facility] Comment on above: Performed By: #### D DAVIDSON, MG, PHOS, CMP, LIPID, URIC #### [facility] [address] [address] [address] Sarmad Patino Calcium [Mass/Vol] 9.3 mg/dL Normal 8.5-10.1 [facility] Comment on above: Performed By: #### D DAVIDSON, MG, PHOS, CMP, LIPID, URIC #### [facility] [address] [address] [address] Sarmad Patino Chloride [Moles/Vol] 105 mmol/L Normal 98-107 [facility] Comment on above: Performed By: #### D DAVIDSON, MG, PHOS, CMP, LIPID, URIC #### [facility] [address] [address] [address] Sarmad Patino CO2 [Moles/Vol] 26.1 mmol/L Normal 21.0-32.0 [facility] Comment on above: Performed By: #### D DAVIDSON, MG, PHOS, CMP, LIPID, URIC #### [facility] [address] [place] [address] Dr. Sarmad Patino Creatinine [Mass/Vol] 0.84 mg/dL Normal 0.55-1.02 [facility] Comment on above: Performed By: #### D DAVIDSON, MG, PHOS, CMP, LIPID, URIC #### [facility] [address] [address] [address] Sarmad Patino EGFR-AF KOSOVAN >60 Normal >=60 [facility] Comment on above: Performed By: #### D DAVIDSON, MG, PHOS, CMP, LIPID, URIC #### [facility] [address] [address] [address] Sarmad Patino EGFR-NON AF KOSOVAN >60 Normal >=60 [facility] Comment on above: Performed By: #### D DAVIDSON, MG, PHOS, CMP, LIPID, URIC #### [facility] [address] [address] [address] Sarmad Patino Globulin (S) [Mass/Vol] 3.8 g/dL Normal [facility] Comment on above: Performed By: #### D DAVIDSON, MG, PHOS, CMP, LIPID, URIC #### [facility] [address] [address] [address] Sarmad Patino Glucose [Mass/Vol] 97 mg/dL Normal 74-106 [facility] Comment on above: Performed By: #### D DAVIDSON, MG, PHOS, CMP, LIPID, URIC #### [facility] [address] [place] [address] Dr. Sarmad Patino Potassium [Moles/Vol] 3.9 mmol/L Normal 3.5-5.1 [facility] Comment on above: Performed By: #### D DAVIDSON, MG, PHOS, CMP, LIPID, URIC #### [facility] [address] [place] [address] Dr. Sarmad Patino Protein [Mass/Vol] 7.4 g/dL Normal 6.4-8.2 [facility] Comment on above: Performed By: #### D DAVIDSON, MG, PHOS, CMP, LIPID, URIC #### [facility] [address] [place] [address] Dr. Sarmad Patino Sodium [Moles/Vol] 142 mmol/L Normal 136-145 [facility] Comment on above: Performed By: #### D DAVIDSON, MG, PHOS, CMP, LIPID, URIC #### [facility] [address] [place] [address] Dr. Sarmad Patino Urea nitrogen [Mass/Vol] 21.0 mg/dL Critically high 7.0-18.0 [facility] Comment on above: Performed By: #### D DAVIDSON, MG, PHOS, CMP, LIPID, URIC #### [facility] [address] [place] [address] Dr. Sarmad Patino Urea nitrogen/Creatinine [Mass ratio] 25.0 mg/mg Normal [facility] Comment on above: Performed By: #### D DAVIDSON, MG, PHOS, CMP, LIPID, URIC #### [facility] [address] [place] [address] Dr. Sarmad Patino URIC ACID SERUMon 11-07-2021 Urate [Mass/Vol] 5.1 mg/dL Normal 2.6-6.0 [facility] Comment on above: Performed By: #### D DAVIDSON, MG, PHOS, CMP, LIPID, URIC #### [facility] [address] [place], [place] [id number] Dr. Sarmad Patino BOX TEST SENT OUTon 10-16-19 22 SENT TO REF LAB 10/15/2021 Normal [facility] Comment on above: Performed By: #### D DAVIDSON, MG, PHOS, CMP, LIPID, URIC #### [facility] [address] [place] [address] Dr. Sarmad Patino EVEROLIMU, WHOLE BLOODon EVEROLIMUS 6.7 ng/mL Normal 3.0-8.0 [facility] Comment on above: Result Comment: Perf ormed by LC-MS/MS technology. Performed By: #### D DAVIDSON, MG, PHOS, CMP, LIPID, URIC #### [facility] [address] [place] [address] Dr. Sarmad Patino FK506 (TACROLIMUS) WHOLE BLO ODon 10-10-2021 Tacrolimus (FK506), Blood 5.9 ng/mL Normal 2.0-20.0 [facility] Comment on above: Result Comment: Trou gh (immediately following transplant) 15.0 . Trough (steady state, 2 weeks or more after transplant): 3.0 - 8.0 . Performed by LC-MS/MS technology. Performed By: #### D DAVIDSON, MG, PHOS, CMP, LIPID, URIC #### [facility] [address] [place] [address] Dr. Sarmad Patino BILIRUBIN CONJUGATED (DIRECT )on 10-08-2021 BILI, CONJUGATED 0.1 mg/dL Normal 0.0-0.2 [facility] Comment on above: Performed By: #### U MAXI, LIPID, MG, CMP, DBIL, PHOS #### [facility] [address] [place] [address] Dr. Sarmad Patino CBC AUTO DIFFon 10-08-2021 BASO # 0.0 103/ul Normal 0.0-0.1 [facility] Comment on above: Performed By: #### D DAVIDSON, MG, PHOS, CMP, LIPID, URIC #### [facility] [address] [place] [address] Dr. Sarmad Patino Basophils/100 WBC (Bld) 0.1 % Critically low 0.2-2.0 [facility] Comment on above: Performed By: #### D DAVIDSON, MG, PHOS, CMP, LIPID, URIC #### [facility] [address] [place] [address] Dr. Sarmad Patino EO # 0.1 103/ul Normal 0.0-0.7 [facility] Comment on above: Performed By: #### D DAVIDSON, MG, PHOS, CMP, LIPID, URIC #### [facility] [address] [place] [address] Dr. Sarmad Patino Eosinophils/100 WBC (Bld) 1.4 % Normal 0.9-7.0 [facility] Comment on above: Performed By: #### D DAVIDSON, MG, PHOS, CMP, LIPID, URIC #### [facility] [address] [place] [address] Dr. Sarmad Patino Erythrocyte distribution width (RBC) [Ratio] 13.6 % Normal 11.0-15.0 [facility] Comment on above: Performed By: #### D DAVIDSON, MG, PHOS, CMP, LIPID, URIC #### [facility] [address] [place] [address] Dr. Sarmad Patino Hematocrit (Bld) [Volume fraction] 47.5 % Normal 36.0-48.0 [facility] Comment on above: Performed By: #### D DAVIDSON, MG, PHOS, CMP, LIPID, URIC #### [facility] [address] [place] [address] Dr. Sarmad Patino Hemoglobin (Bld) [Mass/Vol] 15.7 g/dL Normal 12.0-16.0 [facility] Comment on above: Performed By: #### D DAVIDSON, MG, PHOS, CMP, LIPID, URIC #### [facility] [address] [place] [address] Dr. Sarmad Patino IG # 0.04 10e3/ul Critically high 0.00-0.03 [facility] Comment on above: Performed By: #### D DAVIDSON, MG, PHOS, CMP, LIPID, URIC #### [facility] [address] [place] [address] Dr. Sarmad Patino IG % 0.5 % Normal 0.0-0.5 [facility] Comment on above: Performed By: #### D DAVIDSON, MG, PHOS, CMP, LIPID, URIC #### [facility] [address] [place] [address] Dr. Sarmad Patino LYMPH # 1.3 103/ul Normal 1.2-3.8 [facility] Comment on above: Performed By: #### D DAVIDSON, MG, PHOS, CMP, LIPID, URIC #### [facility] [address] [place] [address] Dr. Sarmad Patino Lymphocytes/100 WBC (Bld) 15.4 % Critically low 20.5-60.0 [facility] Comment on above: Performed By: #### D DAVIDSON, MG, PHOS, CMP, LIPID, URIC #### [facility] [address] [place] [address] Dr. Sarmad Patino MANUAL DIFF REQ NO Normal [facility] Comment on above: Performed By: #### D DAVIDSON, MG, PHOS, CMP, LIPID, URIC #### [facility] [address] [place] [address] Dr. Sarmad Patino MCH (RBC) [Entitic mass] 29.1 pg Normal 26.7-34.0 [facility] Comment on above: Performed By: #### D DAVIDSON, MG, PHOS, CMP, LIPID, URIC #### [facility] [address] [place] [address] Dr. Sarmad Patino MCHC (RBC) [Mass/Vol] 33.1 g/dL Normal 29.9-35.2 [facility] Comment on above: Performed By: #### D DAVIDSON, MG, PHOS, CMP, LIPID, URIC #### [facility] [address] [place] [address] Dr. Sarmad Patino MCV (RBC) [Entitic vol] 88.0 fL Normal 81.0-99.0 [facility] Comment on above: Performed By: #### D DAVIDSON, MG, PHOS, CMP, LIPID, URIC #### [facility] [address] [place] [address] Dr. Sarmad Patino MONO # 0.9 103/ul Critically high 0.3-0.8 [facility] Comment on above: Performed By: #### D DAVIDSON, MG, PHOS, CMP, LIPID, URIC #### [facility] [address] [place] [address] Dr. Sarmad Patino Monocytes/100 WBC (Bld) 10.2 % Normal 1.7-12.0 [facility] Comment on above: Performed By: #### D DAVIDSON, MG, PHOS, CMP, LIPID, URIC #### [facility] [address] [place] [address] Dr. Sarmad Patino NEUT # 6.1 103/ul Normal 1.4-6.5 [facility] Comment on above: Performed By: #### D DAVIDSON, MG, PHOS, CMP, LIPID, URIC #### [facility] [address] [place] [address] Dr. Sarmad Patino Neutrophils/100 WBC (Bld) 72.4 % Normal 43.0-75.0 [facility] Comment on above: Performed By: #### D DAVIDSON, MG, PHOS, CMP, LIPID, URIC #### [facility] [address] [place] [address] Dr. Sarmad Patino Platelet mean volume (Bld) [Entitic vol] 11.1 fL Normal 9.5-13.5 [facility] Comment on above: Performed By: #### D DAVIDSON, MG, PHOS, CMP, LIPID, URIC #### [facility] [address] [place] [address] Dr. Sarmad Patino PLT 213 103/ul Normal 150-450 [facility] Comment on above: Performed By: #### D DAVIDSON, MG, PHOS, CMP, LIPID, URIC #### [facility] [address] [place] [address] Dr. Sarmad Patino RBC 5.40 106/ul Normal 4.20-5.40 [facility] Comment on above: Performed By: #### D DAVIDSON, MG, PHOS, CMP, LIPID, URIC #### [facility] [address] [place] [address] Dr. Sarmad Patino WBC 8.4 103/ul Normal 4.0-11.0 [facility] Comment on above: Performed By: #### D DAVIDSON, MG, PHOS, CMP, LIPID, URIC #### [facility] [address] [address] [address] Sarmad Patino LIPID PROFILEon 10-08-2021 CHOL-HDL RATIO NORM SEE BELOW Normal [facility] Comment on above: Result Comment: 3.3 - 4.4 LOW RISK 4.4 - 7.1 AVERAGE RISK 7.1 - 11.0 MODERATE RISK >11.0 HIGH RISK Performed By: #### D DAVIDSON, MG, PHOS, CMP, LIPID, URIC #### [facility] [address] [address] [address] Sarmad Patino Cholesterol [Mass/Vol] 155 mg/dL Normal <=200 [facility] Comment on above: Performed By: #### D DAVIDSON, MG, PHOS, CMP, LIPID, URIC #### [facility] [address] [address] [address] Sarmad Patino Cholesterol in HDL [Mass/Vol] 49 mg/dL Normal 40-60 [facility] Comment on above: Performed By: #### D DAVIDSON, MG, PHOS, CMP, LIPID, URIC #### [facility] [address] [place] [address] Dr. Sarmad Patino Cholesterol in LDL [Mass/Vol] 73.8 mg/dL Normal [facility] Comment on above: Performed By: #### D DAVIDSON, MG, PHOS, CMP, LIPID, URIC #### [facility] [address] [address] [address] Sarmad Patino Cholesterol.total/C holesterol in HDL [Mass ratio] 3.2 {ratio} Normal [facility] Comment on above: Performed By: #### D DAVIDSON, MG, PHOS, CMP, LIPID, URIC #### [facility] [address] [place] [address] Dr. Sarmad Patino HDL NORMAL > or = 60 mg/dl - LO W CARDIOVASCULAR RISK <40 mg/dl - HIGH CARDIOVASCULAR RISK Normal [facility] Comment on above: Performed By: #### D DAVIDSON, MG, PHOS, CMP, LIPID, URIC #### [facility] [address] [address] [address] Sarmad Patino LDL CALC NORMAL SEE BELOW Normal [facility] Comment on above: Result Comment: <100 mg/dl OPTIMAL 100 - 129 mg/dl NEAR OR ABOVE OPTIMAL 130 - 159 mg/dl BORDERLINE HIGH 160 - 189 mg/dl HIGH >190 mg/dl VERY HIGH Performed By: #### D DAVIDSON, MG, PHOS, CMP, LIPID, URIC #### [facility] [address] [address] [address] Sarmad Patino Triglyceride [Mass/Vol] 161 mg/dL Critically high <=150 [facility] Comment on above: Performed By: #### D DAVIDSON, MG, PHOS, CMP, LIPID, URIC #### [facility] [address] [address] [address] Sarmad Patino VLDL CALC 32.2 mg/dL Normal [facility] Comment on above: Performed By: #### D DAVIDSON, MG, PHOS, CMP, LIPID, URIC #### [facility] [address] [address] [address] Sarmad Patino MAGNESIUMon 10-08-2021 Magnesium [Mass/Vol] 1.6 mg/dL Critically low 1.8-2.4 [facility] Comment on above: Performed By: #### U MAXI, LIPID, MG, CMP, DBIL, PHOS #### [facility] [address] [address] [address] Sarmad Patino PHOSPHORUSon 10-08-2021 Phosphate [Mass/Vol] 3.5 mg/dL Normal 2.6-4.7 [facility] Comment on above: Performed By: #### U MAXI, LIPID, MG, CMP, DBIL, PHOS #### [facility] [address] [place] [address] Dr. Sarmad Patino PROF 14(COMP METB)on 022 Albumin [Mass/Vol] 3.6 g/dL Normal 3.4-5.0 [facility] Comment on above: Performed By: #### D DAVIDSON, MG, PHOS, CMP, LIPID, URIC #### [facility] [address] [address] [address] Sarmad Patino Albumin/Globulin [Mass ratio] 0.9 {ratio} Normal [facility] Comment on above: Performed By: #### D DAVIDSON, MG, PHOS, CMP, LIPID, URIC #### [facility] [address] [place] [address] Dr. Sarmad Patino ALP [Catalytic activity/Vol] 150 U/L Critically high 46-116 [facility] Comment on above: Performed By: #### D DAVIDSON, MG, PHOS, CMP, LIPID, URIC #### [facility] [address] [address] [address] Sarmad Patino ALT [Catalytic activity/Vol] 21 U/L Normal 14-59 [facility] Comment on above: Performed By: #### D DAVIDSON, MG, PHOS, CMP, LIPID, URIC #### [facility] [address] [place] [address] Dr. Sarmad Patino Anion gap [Moles/Vol] 14.0 mmol/L Normal [facility] Comment on above: Performed By: #### D DAVIDSON, MG, PHOS, CMP, LIPID, URIC #### [facility] [address] [place] [address] Dr. Sarmad Patino AST [Catalytic activity/Vol] 13 U/L Critically low 15-37 [facility] Comment on above: Performed By: #### D DAVIDSON, MG, PHOS, CMP, LIPID, URIC #### [facility] [address] [address] [address] Sarmad Patino Bilirubin [Mass/Vol] 0.5 mg/dL Normal 0.2-1.0 [facility] Comment on above: Performed By: #### D DAVIDSON, MG, PHOS, CMP, LIPID, URIC #### [facility] [address] [place] [address] Dr. Sarmad Patino Calcium [Mass/Vol] 9.8 mg/dL Normal 8.5-10.1 [facility] Comment on above: Performed By: #### D DAVIDSON, MG, PHOS, CMP, LIPID, URIC #### [facility] [address] [address] [address] Sarmad Patino Chloride [Moles/Vol] 105 mmol/L Normal 98-107 [facility] Comment on above: Performed By: #### D DAVIDSON, MG, PHOS, CMP, LIPID, URIC #### [facility] [address] [address] [address] Sarmad Patino CO2 [Moles/Vol] 25.9 mmol/L Normal 21.0-32.0 [facility] Comment on above: Performed By: #### D DAVIDSON, MG, PHOS, CMP, LIPID, URIC #### [facility] [address] [address] [address] Sarmad Patino Creatinine [Mass/Vol] 0.81 mg/dL Normal 0.55-1.02 [facility] Comment on above: Performed By: #### D DAVIDSON, MG, PHOS, CMP, LIPID, URIC #### [facility] [address] [address] [address] Sarmad Patino EGFR-AF KOSOVAN >60 Normal >=60 [facility] Comment on above: Performed By: #### D DAVIDSON, MG, PHOS, CMP, LIPID, URIC #### [facility] [address] [place] [address] Dr. Sarmad Patino EGFR-NON AF KOSOVAN >60 Normal >=60 [facility] Comment on above: Performed By: #### D DAVIDSON, MG, PHOS, CMP, LIPID, URIC #### [facility] [address] [address] [address] Sarmad Patino Globulin (S) [Mass/Vol] 3.8 g/dL Normal [facility] Comment on above: Performed By: #### D DAVIDSON, MG, PHOS, CMP, LIPID, URIC #### [facility] [address] [address] [address] Sarmad Patino Glucose [Mass/Vol] 101 mg/dL Normal 74-106 [facility] Comment on above: Performed By: #### D DAVIDSON, MG, PHOS, CMP, LIPID, URIC #### [facility] [address] [place] [address] Dr. Sarmad Patino Potassium [Moles/Vol] 3.9 mmol/L Normal 3.5-5.1 [facility] Comment on above: Performed By: #### D DAVDISON, MG, PHOS, CMP, LIPID, URIC #### [facility] [address] [address] [address] Sarmad Patino Protein [Mass/Vol] 7.4 g/dL Normal 6.4-8.2 [facility] Comment on above: Performed By: #### D DAVIDSON, MG, PHOS, CMP, LIPID, URIC #### [facility] [address] [address] [address] Sarmad Patino Sodium [Moles/Vol] 141 mmol/L Normal 136-145 [facility] Comment on above: Performed By: #### D DAVIDSON, MG, PHOS, CMP, LIPID, URIC #### [facility] [address] [address] [address] Sarmad Patino Urea nitrogen [Mass/Vol] 18.0 mg/dL Normal 7.0-18.0 [facility] Comment on above: Performed By: #### D DAVIDSON, MG, PHOS, CMP, LIPID, URIC #### [facility] [address] [address] [address] Sarmad Patino Urea nitrogen/Creatinine [Mass ratio] 22.2 mg/mg Normal [facility] Comment on above: Performed By: #### D DAVIDSON, MG, PHOS, CMP, LIPID, URIC #### [facility] [address] [address] [address] Sarmad Patino URIC ACID SERUMon 10-08-2021 Urate [Mass/Vol] 4.7 mg/dL Normal 2.6-6.0 [facility] Comment on above: Performed By: #### D DAVIDSON, MG, PHOS, CMP, LIPID, URIC #### [facility] [address] [address] [address] Sarmad CHRISTIEMU, WHOLE BLOODon EVEROLIMUS 8.0 ng/mL Normal 3.0-8.0 [facility] Comment on above: Result Comment: Perf ormed by LC-MS/MS technology. Performed By: #### U MAXI, LIPID, MG, CMP, DBIL, PHOS #### [facility] [address] [place] [address] Dr. Sarmad Patino FK506 (TACROLIMUS) WHOLE BLO ODon 09-14-2021 Tacrolimus (FK506), Blood 9.3 ng/mL Normal 2.0-20.0 [facility] Comment on above: Result Comment: Trou gh (immediately following transplant) 15.0 . Trough (steady state, 2 weeks or more after transplant): 3.0 - 8.0 . Performed by LC-MS/MS technology. Performed By: #### U MAXI, LIPID, MG, CMP, DBIL, PHOS #### [facility] [address] [place] [address] Dr. Sarmad Patino BK VIRUS PCR QUANTon 022 BKV DNA QUANT PCR PLASMA Negative Normal Negative [facility] Comment on above: Result Comment: No B K DNA detected. . The linear range of the assay is 22 - 100,000,000 IU/mL. Performed By: #### D DAVIDSON, MG, PHOS, CMP, LIPID, URIC #### [facility] [address] [address] [address] Sarmad Patino Log10 BKV DNA Plasma Normal [facility] Comment on above: Performed By: #### D DAVIDSON, MG, PHOS, CMP, LIPID, URIC #### [facility] [address] [place] [address] Dr. Sarmad Patino BILIRUBIN CONJUGATED (DIRECT )on 09-10-2021 BILI, CONJUGATED 0.1 mg/dL Normal 0.0-0.2 [facility] Comment on above: Performed By: #### D DAVIDSON, MG, PHOS, CMP, LIPID, URIC #### [facility] [address] [place] [address] Dr. Sarmad Patino CBC AUTO DIFFon 09-10-2021 BASO # 0.0 103/ul Normal 0.0-0.1 [facility] Comment on above: Performed By: #### D DAVIDSON, MG, PHOS, CMP, LIPID, URIC #### [facility] [address] [place] [address] Dr. Sarmad Patino Basophils/100 WBC (Bld) 0.1 % Critically low 0.2-2.0 [facility] Comment on above: Performed By: #### D DAVIDSON, MG, PHOS, CMP, LIPID, URIC #### [facility] [address] [place] [address] Dr. Sarmad Patino EO # 0.2 103/ul Normal 0.0-0.7 [facility] Comment on above: Performed By: #### D DAVIDSON, MG, PHOS, CMP, LIPID, URIC #### [facility] [address] [place] [address] Dr. Sarmad Patino Eosinophils/100 WBC (Bld) 2.3 % Normal 0.9-7.0 [facility] Comment on above: Performed By: #### D DAVIDSON, MG, PHOS, CMP, LIPID, URIC #### [facility] [address] [place] [address] Dr. Sarmad Patino Erythrocyte distribution width (RBC) [Ratio] 13.6 % Normal 11.0-15.0 [facility] Comment on above: Performed By: #### D DAVIDSON, MG, PHOS, CMP, LIPID, URIC #### [facility] [address] [place] [address] Dr. Sarmad Patino Hematocrit (Bld) [Volume fraction] 45.1 % Normal 36.0-48.0 [facility] Comment on above: Performed By: #### D DAVIDSON, MG, PHOS, CMP, LIPID, URIC #### [facility] [address] [place] [address] Dr. Sarmad Patino Hemoglobin (Bld) [Mass/Vol] 14.7 g/dL Normal 12.0-16.0 [facility] Comment on above: Performed By: #### D DAVIDSON, MG, PHOS, CMP, LIPID, URIC #### [facility] [address] [place] [address] Dr. Sarmad Patino IG # 0.03 10e3/ul Normal 0.00-0.03 [facility] Comment on above: Performed By: #### D DAVIDSON, MG, PHOS, CMP, LIPID, URIC #### [facility] [address] [place] [address] Dr. Sarmad Patino IG % 0.4 % Normal 0.0-0.5 [facility] Comment on above: Performed By: #### D DAVIDSON, MG, PHOS, CMP, LIPID, URIC #### [facility] [address] [place] [address] Dr. Sarmad Patino LYMPH # 1.3 103/ul Normal 1.2-3.8 [facility] Comment on above: Performed By: #### D DAVIDSON, MG, PHOS, CMP, LIPID, URIC #### [facility] [address] [place] [address] Dr. Sarmad Patino Lymphocytes/100 WBC (Bld) 18.9 % Critically low 20.5-60.0 [facility] Comment on above: Performed By: #### D DAVIDSON, MG, PHOS, CMP, LIPID, URIC #### [facility] [address] [place] [address] Dr. Sarmad Patino MANUAL DIFF REQ NO Normal [facility] Comment on above: Performed By: #### D DAVIDSON, MG, PHOS, CMP, LIPID, URIC #### [facility] [address] [place] [address] Dr. Sarmad Patino MCH (RBC) [Entitic mass] 29.0 pg Normal 26.7-34.0 [facility] Comment on above: Performed By: #### D DAVIDSON, MG, PHOS, CMP, LIPID, URIC #### [facility] [address] [place] [address] Dr. Sarmad Patino MCHC (RBC) [Mass/Vol] 32.6 g/dL Normal 29.9-35.2 [facility] Comment on above: Performed By: #### D DAVIDSON, MG, PHOS, CMP, LIPID, URIC #### [facility] [address] [place] [address] Dr. Sarmad Patino MCV (RBC) [Entitic vol] 89.0 fL Normal 81.0-99.0 [facility] Comment on above: Performed By: #### D DAVIDSON, MG, PHOS, CMP, LIPID, URIC #### [facility] [address] [place] [address] Dr. Sarmad Patino MONO # 0.8 103/ul Normal 0.3-0.8 [facility] Comment on above: Performed By: #### D DAVIDSON, MG, PHOS, CMP, LIPID, URIC #### [facility] [address] [place] [address] Dr. Sarmad Patino Monocytes/100 WBC (Bld) 11.9 % Normal 1.7-12.0 [facility] Comment on above: Performed By: #### D DAVIDSON, MG, PHOS, CMP, LIPID, URIC #### [facility] [address] [place] [address] Dr. Sarmad Patino NEUT # 4.6 103/ul Normal 1.4-6.5 [facility] Comment on above: Performed By: #### D DAVIDSON, MG, PHOS, CMP, LIPID, URIC #### [facility] [address] [place] [address] Dr. Sarmad Patino Neutrophils/100 WBC (Bld) 66.4 % Normal 43.0-75.0 [facility] Comment on above: Performed By: #### D DAVIDSON, MG, PHOS, CMP, LIPID, URIC #### [facility] [address] [place] [address] Dr. Sarmad Patino Platelet mean volume (Bld) [Entitic vol] 10.6 fL Normal 9.5-13.5 [facility] Comment on above: Performed By: #### D DAVIDSON, MG, PHOS, CMP, LIPID, URIC #### [facility] [address] [place] [address] Dr. Sarmad Patino PLT 233 103/ul Normal 150-450 [facility] Comment on above: Performed By: #### D DAVIDSON, MG, PHOS, CMP, LIPID, URIC #### [facility] [address] [place] [address] Dr. Sarmad Patino RBC 5.07 106/ul Normal 4.20-5.40 [facility] Comment on above: Performed By: #### D DAVIDSON, MG, PHOS, CMP, LIPID, URIC #### [facility] [address] [address] [address] Sarmad Patino WBC 6.9 103/ul Normal 4.0-11.0 [facility] Comment on above: Performed By: #### D DAVIDSON, MG, PHOS, CMP, LIPID, URIC #### [facility] [address] [address] [address] Sarmad Patino GLYCOHEMOGLOBIN A1Con 2021 ADA RECOMMENDATION SEE BELOW Normal [facility] Comment on above: Result Comment: ADA RECOMMENDED LIMIT 4.0 - 6.0 ADA THERAPEUTIC TARGET < 7.0 ACTION SUGGESTED > 7.0 Performed By: #### D DAVIDSON, MG, PHOS, CMP, LIPID, URIC #### [facility] [address] [place] [address] Dr. Sarmad Patino Glucose [Mass/Vol] 120 mg/dL Normal [facility] Comment on above: Performed By: #### D DAVIDSON, MG, PHOS, CMP, LIPID, URIC #### [facility] [address] [address] [address] Sarmad Patino HbA1c (Bld) [Mass fraction] 5.8 % Normal 4.5-6.2 [facility] Comment on above: Performed By: #### D DAVIDSON, MG, PHOS, CMP, LIPID, URIC #### [facility] [address] [place] [address] Dr. Sarmad Patino LIPID PROFILEon 09-10-2021 CHOL-HDL RATIO NORM SEE BELOW Normal [facility] Comment on above: Result Comment: 3.3 - 4.4 LOW RISK 4.4 - 7.1 AVERAGE RISK 7.1 - 11.0 MODERATE RISK >11.0 HIGH RISK Performed By: #### D DAVIDSON, MG, PHOS, CMP, LIPID, URIC #### [facility] [address] [address] [address] Sarmad Patino Cholesterol [Mass/Vol] 150 mg/dL Normal <=200 [facility] Comment on above: Performed By: #### D DAVIDSON, MG, PHOS, CMP, LIPID, URIC #### [facility] [address] [address] [address] Sarmad Patino Cholesterol in HDL [Mass/Vol] 47 mg/dL Normal 40-60 [facility] Comment on above: Performed By: #### D DAVIDSON, MG, PHOS, CMP, LIPID, URIC #### [facility] [address] [address] [address] Sarmad Patino Cholesterol in LDL [Mass/Vol] 78.4 mg/dL Normal [facility] Comment on above: Performed By: #### D DAVIDSON, MG, PHOS, CMP, LIPID, URIC #### [facility] [address] [address] [address] Sarmad Patino Cholesterol.total/C holesterol in HDL [Mass ratio] 3.2 {ratio} Normal [facility] Comment on above: Performed By: #### D DAVIDSON, MG, PHOS, CMP, LIPID, URIC #### [facility] [address] [address] [address] Sarmad Patino HDL NORMAL > or = 60 mg/dl - LO W CARDIOVASCULAR RISK <40 mg/dl - HIGH CARDIOVASCULAR RISK Normal [facility] Comment on above: Performed By: #### D DAVIDSON, MG, PHOS, CMP, LIPID, URIC #### [facility] [address] [address] [address] Sarmad Patino LDL CALC NORMAL SEE BELOW Normal [facility] Comment on above: Result Comment: <100 mg/dl OPTIMAL 100 - 129 mg/dl NEAR OR ABOVE OPTIMAL 130 - 159 mg/dl BORDERLINE HIGH 160 - 189 mg/dl HIGH >190 mg/dl VERY HIGH Performed By: #### D DAVIDSON, MG, PHOS, CMP, LIPID, URIC #### [facility] [address] [address] [address] Sarmad Patino Triglyceride [Mass/Vol] 123 mg/dL Normal <=150 [facility] Comment on above: Performed By: #### D DAVIDSON, MG, PHOS, CMP, LIPID, URIC #### [facility] [address] [address] [address] Sarmad Patino VLDL CALC 24.6 mg/dL Normal [facility] Comment on above: Performed By: #### D DAVIDSON, MG, PHOS, CMP, LIPID, URIC #### [facility] [address] [place] [address] Dr. Sarmad Patino MAGNESIUMon 09-10-2021 Magnesium [Mass/Vol] 1.5 mg/dL Critically low 1.8-2.4 [facility] Comment on above: Performed By: #### D DAVIDSON, MG, PHOS, CMP, LIPID, URIC #### [facility] [address] [place] [address] Dr. Sarmad Patino PHOSPHORUSon 09-10-2021 Phosphate [Mass/Vol] 3.8 mg/dL Normal 2.6-4.7 [facility] Comment on above: Performed By: #### D DAVIDSON, MG, PHOS, CMP, LIPID, URIC #### [facility] [address] [place] [address] Dr. Sarmad Patino PROF 14(COMP METB)on 022 Albumin [Mass/Vol] 3.4 g/dL Normal 3.4-5.0 [facility] Comment on above: Performed By: #### D DAVIDSON, MG, PHOS, CMP, LIPID, URIC #### [facility] [address] [place] [address] Dr. Sarmad Patino Albumin/Globulin [Mass ratio] 0.9 {ratio} Normal [facility] Comment on above: Performed By: #### D DAVIDSON, MG, PHOS, CMP, LIPID, URIC #### [facility] [address] [place] [address] Dr. Sarmad Patino ALP [Catalytic activity/Vol] 143 U/L Critically high 46-116 [facility] Comment on above: Performed By: #### D DAVIDSON, MG, PHOS, CMP, LIPID, URIC #### [facility] [address] [place] [address] Dr. Sarmad Patino ALT [Catalytic activity/Vol] 19 U/L Normal 14-59 [facility] Comment on above: Performed By: #### D DAVIDSON, MG, PHOS, CMP, LIPID, URIC #### [facility] [address] [place] [address] Dr. Sarmad Patino Anion gap [Moles/Vol] 13.4 mmol/L Normal [facility] Comment on above: Performed By: #### D DAVIDSON, MG, PHOS, CMP, LIPID, URIC #### [facility] [address] [place] [address] Dr. Sarmad Patino AST [Catalytic activity/Vol] 24 U/L Normal 15-37 [facility] Comment on above: Performed By: #### D DAVIDSON, MG, PHOS, CMP, LIPID, URIC #### [facility] [address] [place] [address] Dr. Sarmad Patino Bilirubin [Mass/Vol] 0.4 mg/dL Normal 0.2-1.0 [facility] Comment on above: Performed By: #### D DAVIDSON, MG, PHOS, CMP, LIPID, URIC #### [facility] [address] [place] [address] Dr. Sarmad Patino Calcium [Mass/Vol] 9.3 mg/dL Normal 8.5-10.1 [facility] Comment on above: Performed By: #### D DAVIDSON, MG, PHOS, CMP, LIPID, URIC #### [facility] [address] [place] [address] Dr. Sarmad Patino Chloride [Moles/Vol] 106 mmol/L Normal 98-107 [facility] Comment on above: Performed By: #### D DAVIDSON, MG, PHOS, CMP, LIPID, URIC #### [facility] [address] [place] [address] Dr. Sarmad Patino CO2 [Moles/Vol] 25.5 mmol/L Normal 21.0-32.0 [facility] Comment on above: Performed By: #### D DAVDISON, MG, PHOS, CMP, LIPID, URIC #### [facility] [address] [place] [address] Dr. Sarmad Patino Creatinine [Mass/Vol] 0.85 mg/dL Normal 0.55-1.02 [facility] Comment on above: Performed By: #### D DAVIDSON, MG, PHOS, CMP, LIPID, URIC #### [facility] [address] [place] [address] Dr. Sarmad Patino EGFR-AF KOSOVAN >60 Normal >=60 [facility] Comment on above: Performed By: #### D DAVIDSON, MG, PHOS, CMP, LIPID, URIC #### [facility] [address] [address] [address] Sarmad Patino EGFR-NON AF KOSOVAN >60 Normal >=60 [facility] Comment on above: Performed By: #### D DAVIDSON, MG, PHOS, CMP, LIPID, URIC #### [facility] [address] [address] [address] Sarmad Patino Globulin (S) [Mass/Vol] 3.8 g/dL Normal [facility] Comment on above: Performed By: #### D DAVIDSON, MG, PHOS, CMP, LIPID, URIC #### [facility] [facility] [address] [address] [address] Sarmad Patino Glucose [Mass/Vol] 100 mg/dL Normal 74-106 [facility] Comment on above: Performed By: #### D DAVIDSON, MG, PHOS, CMP, LIPID, URIC #### [facility] [address] [address] [address] Sarmad Patino Potassium [Moles/Vol] 3.9 mmol/L Normal 3.5-5.1 [facility] Comment on above: Performed By: #### D DAVIDSON, MG, PHOS, CMP, LIPID, URIC #### [facility] [address] [address] [address] Sarmad Patino Protein [Mass/Vol] 7.2 g/dL Normal 6.4-8.2 [facility] Comment on above: Performed By: #### D DAVIDSON, MG, PHOS, CMP, LIPID, URIC #### [facility] [address] [address] [address] Sarmad Patino Sodium [Moles/Vol] 141 mmol/L Normal 136-145 [facility] Comment on above: Performed By: #### D DAVIDSON, MG, PHOS, CMP, LIPID, URIC #### [facility] [address] [address] [address] Sarmad Patino Urea nitrogen [Mass/Vol] 16.0 mg/dL Normal 7.0-18.0 [facility] Comment on above: Performed By: #### D DAVIDSON, MG, PHOS, CMP, LIPID, URIC #### [facility] [address] [address] [address] Sarmad Patino Urea nitrogen/Creatinine [Mass ratio] 18.8 mg/mg Normal [facility] Comment on above: Performed By: #### D DAVIDSON, MG, PHOS, CMP, LIPID, URIC #### [facility] [address] [address] [address] Sarmad Patino URIC ACID SERUMon 09-10-2021 Urate [Mass/Vol] 4.8 mg/dL Normal 2.6-6.0 [facility] Comment on above: Performed By: #### D DAVIDSON, MG, PHOS, CMP, LIPID, URIC #### [facility] [address] [address] [address] Sarmad Patino Urinalysis - AUTOMATEDon Appearance (U) cloudy [employer] Other Bilirubin Ql (U) Negative [employer] Other Color (U) pale yellow [employer] Other Glucose Ql (U) Negative [employer] Other Hemoglobin Ql (U) moderate [employer] Other Ketones Ql (U) Negative [employer] Other Leukocyte esterase Test strip Ql (U) moderate [employer] Other Nitrite Ql (U) Negative [employer] Other pH (U) 7.0 [pH] [employer] Other Protein Ql (U) Negative [employer] Other Specific gravity (U) [Rel density] 1.010 [employer] Other Urobilinogen (U) [Mass/Vol] 0.2 mg/dL [employer] Other Urinalysis - AUTOMATED [employer] Other Urine Cultureon 08-14-2021 Urine Culture 100,000 [employer] Other Urine Culture <16 Susceptible [employer] Other Urine Culture >16 Resistant [employer] Other Urine Culture <4 Susceptible [employer] Other Urine Culture <2 Susceptible [employer] Other Urine Culture <1 Susceptible [employer] Other Urine Culture <0.5 Susceptible [employer] Other Urine Culture <32 Susceptible [employer] Other Urine Culture <2/38 Susceptible [employer] Other Bacteria identified Cx Nom (U) Reason for Exam Dysuria Urine ORGANISM: Klebsiella pneumoniae (O:KLEPNE) [place] Count 100,000 Aerobic SHYLA Charge (NUC86) --- [...] RESISTANT TO ALL B-LACTAM DRUGS. PERFORMED BY: [facility] [address] [place] [address] PATHOLOGIST PLATE GRAINER APPRENTICE LOVELY COLE M.D. Normal [facility] Comment on above: Performed By: #### C UU #### [facility] [address] [place] [address] *URINE CULTUREon 12-31-2017 Bacteria identified in Urine by Culture Clinical Report: (D) Specimen: URINE Collected: 12/31/2017 13:40 Status: Final Last Updated: 01/04/2018 12:38 ISO (Final) Diphtheroids >100,000 Cfu/Ml 2 Morphologies ISO (Final) Aerococcus urinae 50,000 - 100,000 Cfu/mL Result changed by RFISCHB on 01/04/2018 12:38. The previous result was: ISO (Prelim) Normal [facility] Comment on above: Performed By: #### 4 1000, 70751, 27485, 11113, 52956, 80141 ####[facility] CBC W/DIFFon 12-25-2017 ABS BASOPHILS 0.0 10*3/uL Normal 0.0-0.2 [facility] Comment on above: Performed By: #### 5 0103 ####[facility] ABS IMM GRANS 0.0 10*3/uL Normal 0.0-0.2 [facility] Comment on above: Performed By: #### 5 0103 ####[facility] ABS NEUTROPHILS 5.0 10*3/uL Normal 1.6-7.6 [facility] Comment on above: Performed By: #### 5 0103 ####[facility] [place] [address], [facility] Basophils Auto #/vol (Bld) 0.1 % Normal 0.0-1.0 [facility] Comment on above: Performed By: #### 5 0103 ####[facility] [place] [address], [facility] Eosinophils Auto #/vol (Bld) 0.1 10*3/uL Normal 0.0-0.5 [facility] Comment on above: Performed By: #### 5 0103 ####[facility] [place] [address], [facility] Eosinophils/100 WBC Auto (Bld) 1.6 % Normal 0.0-6.0 [facility] Comment on above: Performed By: #### 5 0103 ####[facility] Erythrocyte distribution width Auto Ratio (RBC) 14.6 % Normal 11.5-15.0 [facility] Comment on above: Performed By: #### 5 0103 ####[facility] Hematocrit Auto Volume Fraction (Bld) 44.9 % Normal 36.0-45.0 [facility] Comment on above: Performed By: #### 5 0103 ####[facility] Hemoglobin mass conc (Bld) 14.9 g/dL Normal 12.0-15.0 [facility] Comment on above: Performed By: #### 5 3 ####[facility] [place] [address], [facility] IMMATURE GRANS 0.4 % Normal 0.0-1.0 [facility] Comment on above: Performed By: #### 5 3 ####[facility] Lymphocytes Auto #/vol (Bld) 1.0 10*3/uL Low 1.2-4.0 [facility] Comment on above: Performed By: #### 3 ####[facility] Lymphocytes/100 WBC Auto (Bld) 14.9 % Low 20.0-45.0 [facility] Comment on above: Performed By: #### 102 ####[facility] MCH Auto Entitic mass (RBC) 28.8 pg Normal 27.0-33.0 [facility] Comment on above: Performed By: #### 102 ####[facility] MCHC Auto mass conc (RBC) 33.2 g/dL Normal 32.0-35.0 [facility] Comment on above: Performed By: #### 3 ####[facility] MCV Auto Entitic volume (RBC) 86.7 fL Normal 82.0-98.0 [facility] Comment on above: Performed By: #### 102 ####[facility] Monocytes Auto #/vol (Bld) 0.7 10*3/uL Normal 0.1-1.0 [facility] Comment on above: Performed By: #### 102 ####[facility] [place] [address] MONOS 10.6 % Normal 5.0-12.0 [facility] Comment on above: Performed By: #### 5 0103 ####[facility]3000 [facility].[address] Neutrophils/100 WBC Auto (Bld) 72.4 % High 40.0-72.0 [facility] Comment on above: Performed By: #### 5 0103 ####[facility]3000 [facility].[address] Nucleated RBC/100 WBC Ratio (Bld) 0 % Normal 0-0 [facility] Comment on above: Performed By: #### 5 0103 ####[facility]3000 [facility].[address] PLAT CNT 203 10*3/uL Normal 150-400 [facility] Comment on above: Performed By: #### 5 0103 ####[facility]3000 [facility].[address] RBC Auto #/vol (Bld) 5.18 10*6/uL High 3.80-5.00 [facility] Comment on above: Performed By: #### 5 0103 ####[facility]3000 [facility].[address] WBC Auto #/vol (Bld) 6.90 10*3/uL Normal 4.00-10.60 [facility] Comment on above: Performed By: #### 5 0103 ####[facility]3000 [facility].[address] COMP METABOLIC PANELon 12-25 Albumin mass conc 4.3 g/dL Normal 3.5-5.7 [facility] Comment on above: Performed By: #### 4 1000, 33947, 76513, 94626, 82153, 56759 ####[facility]3000 [facility].[address] ALKALINE PHOSPH 118 IU/L High 34-104 [facility] Comment on above: Performed By: #### 4 1000, 58685, 47431, 87945, 50455, 85895 ####[facility] [place] [address], [facility] ALT enzyme act/vol 11 U/L Normal 7-52 [facility] Comment on above: Performed By: #### 4 1000, 62726, 19305, 92271, 72928, 04127 ####[facility] [place] [address], [facility] AST enzyme act/vol 17 U/L Normal 13-39 [facility] Comment on above: Performed By: #### 4 1000, 10459, 15619, 64453, 71161, 95968 ####[facility] [place] [address], [facility] Bilirubin mass conc 0.4 mg/dL Normal 0.3-1.[address] [facility] Comment on above: Performed By: #### 4 1000, 34346, 22227, 37781, 13671, 91060 ####[facility] [place] [address], [facility] Calcium mass conc 9.8 mg/dL Normal 8.6-10.3 [facility] Comment on above: Performed By: #### 4 1000, 81900, 75244, 55769, 49556, 31724 ####[facility] [place] [address], [place] Chloride molar conc 104 mmol/L Normal 98-[address] [facility] Comment on above: Performed By: #### 4 1000, 64247, 49931, 30180, 74613, 55339 ####[facility] [place] [address], [place] CO2 molar conc 27 mmol/L Normal 21-31 [facility] Comment on above: Performed By: #### 4 1000, 68319, 81381, 11115, 06499, 33835 ####[facility] [place] [address], [facility] Creatinine mass conc 0.76 mg/dL Normal 0.60-1.20 [facility] Comment on above: Performed By: #### 4 1000, 39369, 59838, 69006, 00615, 59393 ####[facility] [place] [address], [facility] GFR/1.73 sq M predicted among blacks MDRD vol rate/area (S/P/Bld) mL/min/{1.73_m2} Normal >60 [facility] Comment on above: Performed By: #### 4 1000, 54686, 89051, 44120, 88706, 29854 ####[facility] [place] [address], [facility] GFR/1.73 sq M predicted among non-blacks MDRD vol rate/area (S/P/Bld) mL/min/{1.73_m2} Normal >60 [facility] Comment on above: Performed By: #### 4 1000, 91746, 42260, 06965, 73570, 17987 ####[facility] [place] [address], [facility] Glucose mass conc 94 mg/dL Normal 70-100 [facility] Comment on above: Performed By: #### 4 1000, 30147, 91081, 94370, 30409, 67291 ####[facility] [place] [address], [facility] Potassium molar conc 3.9 mmol/L Normal 3.5-5.1 [facility] Comment on above: Performed By: #### 4 1000, 12621, 39866, 17082, 62856, 78281 ####[facility] Protein mass conc 7.2 g/dL Normal 6.0-8.3 [facility] Comment on above: Performed By: #### 4 1000, 23646, 29225, 58865, 40103, 12186 ####[facility] [facility] Sodium molar conc 140 mmol/L Normal 136-145 [facility] Comment on above: Performed By: #### 4 1000, 55114, 46974, 11340, 87959, 68476 ####[facility]3000 [facility].[address] Urea nitrogen mass conc 15 mg/dL Normal 7-25 [facility] Comment on above: Performed By: #### 4 1000, 03957, 35715, 40995, 24408, 75842 ####[facility]3000 [facility].[address] DIRECT BILIon 12-25-2017 Bilirubin.direct mass conc 0.1 mg/dL Normal 0.0-0.2 [facility] Comment on above: Performed By: #### 4 1000, 46022, 60213, 91269, 12844, 53653 ####[facility]3000 [facility].[address] EVEROLIMUS 04520tz 8 EVEROLIMUS 4.7 ng/mL Normal [facility] Comment on above: Result Comment: Ther apeutic [...] the transplantcenter.Test developed and characteristics determined by [employer]. See Compliance Statement B: Datappraise/CSPerformed by [employer],[address] [place] [address] xtw.Datappraise, Leonid Antonio MD - Lab. Director LIPID PROFILEon 12-25-2017 Cholesterol in HDL mass conc 51 mg/dL Normal 23-92 [facility] Comment on above: Result Comment: Slig ht variation in normal range could be due to gender and/or age.HDL CHOLESTEROL REFERENCE RANGE:20 years and older Cardiovascular Risk> or =60 mg/dL Mtxpoevgu22 TO 59 mg/dL Low Risk<40 mg/dL High Risk Performed By: #### 4 5506, 77834, 50546, 86736, 29263, 01803 ####[facility]3000 [facility].[address] Cholesterol in LDL mass conc 58 mg/dL Normal 0-130 [facility] Comment on above: Result Comment: LDL IS A CALCULATIONLDL IS ONLY VALID IF THE TRIG IS LESS THAN 400. Performed By: #### 4 5506, 52520, 21469, 38416, 45291, 42089 ####[facility]3000 [facility] [place] [address], [facility] Cholesterol mass conc 122 mg/dL Normal 120-200 [facility] Comment on above: Result Comment: CHOL ESTEROL REFERENCE RANGE:20 YEARS AND OLDER CARDIOVASCULAR RISKLess than 200 mg/dl Low Uwgh887 to 239 mg/dl Borderline Bhdg120 mg/dl and greater High Risk Performed By: #### 4 5506, 01548, 28134, 99067, 35156, 90058 ####[facility] [place] [address], [facility] Cholesterol.total/C holesterol in HDL mass ratio 2.4 {ratio} Normal .0-4.5 [facility] Comment on above: Performed By: #### 4 5506, 80625, 48211, 15029, 80940, 49611 ####[facility] NON-HDL CHOLESTEROL 71 mg/dL Normal The [facility] Comment on above: Performed By: #### 4 5506, 65068, 59497, 74516, 72376, 44034 ####[facility] [facility] Triglyceride mass conc 65 mg/dL Normal 40-149 [facility] Comment on above: Result Comment: TRIG LYCERIDE REFERENCE RANGE:20 YEARS AND OLDER CARDIOVASCULAR RISKLESS THAN 150 mg/dl LOW [id number] TO 199 mg/dl BORDERLINE ULIU529 mg/dl AND GREATER HIGH RISK Performed By: #### 4 5506, 15913, 98384, 43842, 28198, 67005 ####[facility] [facility] VLDL CHOL 13 mg/dL Normal 0-40 [facility] Comment on above: Performed By: #### 4 5506, 35427, 37375, 72981, 87023, 68801 ####[facility] [place] [address], [facility] MAGNESIUM BLOODon 12-25-2017 Magnesium mass conc 1.8 mg/dL Low 1.9-2.[address] [facility] Comment on above: Performed By: #### 4 1000, 98406, 89423, 46033, 63746, 67004 ####[facility] [place] [address], [facility] PHOSPHORUS BLOODon 8 Phosphate mass conc 3.4 mg/dL Normal 2.5-5.0 [facility] Comment on above: Performed By: #### 4 5506, 21991, 13736, 56844, 17741, 17658 ####[facility] TACROLIMUSon 12-25-2017 Tacrolimus mass conc (Bld) 6.4 ng/mL Normal 5.0-20.0 [facility] Comment on above: Result Comment: The [employer] Tacrolimus assay is a delayed one-step immunoassayfor the quantitative determination of tacrolimus in human whole bloodusing the chemiluminescent microparticle immunoassay (CMIA) technologywith flexible assay protocols, referred to as Chemiflex. Performed By: #### 4 1000, 94544, 47746, 20716, 09682, 07529 ####[facility] URIC ACID BLOODon 12-25-2017 Urate mass conc 4.7 mg/dL Normal 2.3-6.6 The [facility] Comment on above: Performed By: #### 4 5506, 62006, 86157, 58572, 16379, 93658 ####[facility] CBC W/DIFFon 10-30-2017 ABS BASOPHILS 0.0 10*3/uL Normal 0.0-0.2 [facility] Comment on above: Performed By: #### 4 6447, 66540 ####[facility] ABS IMM GRANS 0.0 10*3/uL Normal 0.0-0.2 [facility] Comment on above: Performed By: #### 4 6447, 25265 ####[facility] [place] [address] ABS NEUTROPHILS 4.9 10*3/uL Normal 1.6-7.6 [facility] Comment on above: Performed By: #### 4 4773, 11121 ####[facility] Basophils Auto #/vol (Bld) 0.1 % Normal 0.0-1.0 [facility] Comment on above: Performed By: #### 4 6801, 01258 ####[facility] [place] [address], [facility] Eosinophils Auto #/vol (Bld) 0.1 10*3/uL Normal 0.0-0.5 [facility] Comment on above: Performed By: #### 4 5504, 33448 ####[facility]3000 [facility].[address] Eosinophils/100 WBC Auto (Bld) 1.4 % Normal 0.0-6.0 [facility] Comment on above: Performed By: #### 4 3951, 02077 ####[facility]3000 [facility].[address] Erythrocyte distribution width Auto Ratio (RBC) 14.6 % Normal 11.5-15.0 [facility] Comment on above: Performed By: #### 7 2455, 53550 ####[address] [facility].[address] Hematocrit Auto Volume Fraction (Bld) 46.8 % High 36.0-45.0 [facility] Comment on above: Performed By: #### 6 8202, 31103 ####[facility]3000 [facility].[address] Hemoglobin mass conc (Bld) 15.1 g/dL High 12.0-15.0 [facility] Comment on above: Performed By: #### 4 4803, 07942 ####[facility]3000 [facility] IMMATURE GRANS 0.4 % Normal 0.0-1.0 [facility] Comment on above: Performed By: #### 4 0948, 18270 ####[address] Lymphocytes Auto #/vol (Bld) 1.2 10*3/uL Normal 1.2-4.0 [facility] Comment on above: Performed By: #### 4 3708, 51210 ####[address] Lymphocytes/100 WBC Auto (Bld) 16.6 % Low 20.0-45.0 [facility] Comment on above: Performed By: #### 4 9784, 73739 ####[address] MCH Auto Entitic mass (RBC) 29.0 pg Normal 27.0-33.0 [facility] Comment on above: Performed By: #### 0 2334, 60654 ####[address] MCHC Auto mass conc (RBC) 32.3 g/dL Normal 32.0-35.0 [facility] Comment on above: Performed By: #### 6 0981, 80025 ####[address] MCV Auto Entitic volume (RBC) 89.8 fL Normal 82.0-98.0 [facility] Comment on above: Performed By: #### 4 1064, 07554 ####[address] Monocytes Auto #/vol (Bld) 0.8 10*3/uL Normal 0.1-1.0 [facility] Comment on above: Performed By: #### 0 8163, 47949 ####[address] [place] [address], [facility] MONOS 11.9 % Normal 5.0-12.0 [facility] Comment on above: Performed By: #### 4 6447, 56934 ####[facility] [place] [address], [facility] Neutrophils/100 WBC Auto (Bld) 69.6 % Normal 40.0-72.0 [facility] Comment on above: Performed By: #### 4 6447, 67876 ####[facility]3000 [facility].[address] Nucleated RBC/100 WBC Ratio (Bld) 0 % Normal 0-0 [facility] Comment on above: Performed By: #### 4 6447, 02746 ####[address] PLAT CNT 200 10*3/uL Normal 150-400 [facility] Comment on above: Performed By: #### 4 6447, 11834 ####[address] [facility].[address] RBC Auto #/vol (Bld) 5.21 10*6/uL High 3.80-5.00 [facility] Comment on above: Performed By: #### 4 6447, 65577 ####[facility] [facility] WBC Auto #/vol (Bld) 7.04 10*3/uL Normal 4.00-10.60 [facility] Comment on above: Performed By: #### 4 6447, 29610 ####[address] [address] [facility].[address] COMP METABOLIC PANELon 10-30 Albumin mass conc 4.1 g/dL Normal 3.5-5.7 [facility] Comment on above: Performed By: #### 4 1147, 54016 ####[facility] [place] [address], [facility] ALKALINE PHOSPH 114 IU/L High 34-104 The [facility] Comment on above: Performed By: #### 4 7596, 97160 ####[facility] [place] [address], [place] ALT enzyme act/vol 16 U/L Normal 7-52 [facility] Comment on above: Performed By: #### 4 9112, 24846 ####[facility] [place] [address], [place] AST enzyme act/vol 18 U/L Normal 13-39 [facility] Comment on above: Performed By: #### 4 2617, 82194 ####[address] [place] [address], [place] Bilirubin mass conc 0.4 mg/dL Normal 0.3-1.[address] [facility] Comment on above: Performed By: #### 4 2464, 44062 ####[facility] [place] [address], [place] Calcium mass conc 9.7 mg/dL Normal 8.6-10.3 [facility] Comment on above: Performed By: #### 4 9510, 01453 ####[facility] [place] [address], [place] Chloride molar conc 105 mmol/L Normal 98-[address] [facility] Comment on above: Performed By: #### 4 8807, 94495 ####[facility] [place] [address], [place] CO2 molar conc 28 mmol/L Normal 21-31 [facility] Comment on above: Performed By: #### 4 1632, 74172 ####[facility] [place] [address], [facility] Creatinine mass conc 0.82 mg/dL Normal 0.60-1.20 [facility] Comment on above: Performed By: #### 4 9568, 27301 ####[facility] [place] [address], [facility] GFR/1.73 sq M predicted among blacks MDRD vol rate/area (S/P/Bld) mL/min/{1.73_m2} Normal >60 [facility] Comment on above: Performed By: #### 4 1247, 16640 ####[facility] [place] [address], [facility] GFR/1.73 sq M predicted among non-blacks MDRD vol rate/area (S/P/Bld) mL/min/{1.73_m2} Normal >60 [facility] Comment on above: Performed By: #### 4 5365, 39112 ####[facility] [place] [address], [facility] Glucose mass conc 90 mg/dL Normal 70-100 [facility] Comment on above: Performed By: #### 4 9921, 98826 ####[facility] [place] [address], [facility] Potassium molar conc 4.1 mmol/L Normal 3.5-5.1 [facility] Comment on above: Performed By: #### 4 4547, 16109 ####[facility] [place] [address], [facility] Protein mass conc 6.9 g/dL Normal 6.0-8.3 [facility] Comment on above: Performed By: #### 4 4204, 36857 ####[facility] [facility] [place] [address], [facility] Sodium molar conc 138 mmol/L Normal 136-145 [facility] Comment on above: Performed By: #### 4 6447, 34349 ####[facility] [facility] Urea nitrogen mass conc 16 mg/dL Normal 7-25 [facility] Comment on above: Performed By: #### 4 6447, 18022 ####[facility]3000 [facility].[address] DIRECT BILIon 10-30-2017 Bilirubin.direct mass conc 0.0 mg/dL Normal 0.0-0.2 [facility] Comment on above: Performed By: #### 4 5506, 61782, 15512, 21205, 54758, 46359 ####[facility]3000 [facility].[address] EVEROLIMUS [id number] 8 EVEROLIMUS 6.0 ng/mL Normal [facility] Comment on above: Result Comment: Ther apeutic [...] the transplantcenter.Test developed and characteristics determined by [employer]. See Compliance Statement B: [employer]/CSPerformed by [employer],[address] [place] [id number] iql.Datappraise, Leonid Antonio MD - Lab. Director LIPID PROFILEon 10-30-2017 Cholesterol in HDL mass conc 50 mg/dL Normal 23-92 [facility] Comment on above: Result Comment: Slig ht variation in normal range could be due to gender and/or age.HDL CHOLESTEROL REFERENCE RANGE:20 years and older Cardiovascular Risk> or =60 mg/dL [id number] TO 59 mg/dL Low Risk<40 mg/dL High Risk Performed By: #### 4 5506, 68218, 69257, 62723, 06389, 07122 ####[facility] [place] [address], [place] Cholesterol in LDL mass conc 85 mg/dL Normal 0-130 [facility] Comment on above: Result Comment: LDL IS A CALCULATIONLDL IS ONLY VALID IF THE TRIG IS LESS THAN 400. Performed By: #### 4 5506, 87553, 09585, 63500, 50734, 91022 ####[facility] [place] [address], [facility] Cholesterol mass conc 152 mg/dL Normal 120-200 [facility] Comment on above: Result Comment: CHOL ESTEROL REFERENCE RANGE:20 YEARS AND OLDER CARDIOVASCULAR RISKLess than 200 mg/dl Low Qiqv108 to 239 mg/dl Borderline Hezg984 mg/dl and greater High Risk Performed By: #### 4 5506, 60216, 31157, 16556, 29492, 89732 ####[facility] [place] [address], [place] Cholesterol.total/C holesterol in HDL mass ratio 3.0 {ratio} Normal .0-4.5 [facility] Comment on above: Performed By: #### 4 5506, 33371, 55274, 45945, 22616, 09213 ####[facility] [place] [address], [place] NON-HDL CHOLESTEROL 102 mg/dL Normal [facility] Comment on above: Performed By: #### 4 5506, 46010, 32427, 62043, 93274, 23531 ####[facility] Triglyceride mass conc 87 mg/dL Normal 40-149 [facility] Comment on above: Result Comment: TRIG LYCERIDE REFERENCE RANGE:20 YEARS AND OLDER CARDIOVASCULAR RISKLESS THAN 150 mg/dl LOW [id number] TO 199 mg/dl BORDERLINE [id number] mg/dl AND GREATER HIGH RISK Performed By: #### 4 5506, 99412, 40693, 83066, 88470, 45581 ####[facility] VLDL CHOL 17 mg/dL Normal 0-40 [facility] Comment on above: Performed By: #### 4 5506, 45337, 08310, 51321, 40937, 90025 ####[facility] MAGNESIUM BLOODon 10-30-2017 Magnesium mass conc 1.9 mg/dL Normal 1.9-2.[address] [facility] Comment on above: Performed By: #### 4 5506, 34379, 29153, 55283, 81734, 20299 ####[facility] PHOSPHORUS BLOODon 8 Phosphate mass conc 3.7 mg/dL Normal 2.5-5.[address] [facility] Comment on above: Performed By: #### 4 5506, 30296, 23764, 57198, 04815, 83015 ####[facility] TACROLIMUSon 10-30-2017 Tacrolimus mass conc (Bld) 7.1 ng/mL Normal 5.0-20.0 [facility] Comment on above: Result Comment: The [employer] Tacrolimus assay is a delayed one-step immunoassayfor the quantitative determination of tacrolimus in human whole bloodusing the chemiluminescent microparticle immunoassay (CMIA) technologywith flexible assay protocols, referred to as Chemiflex. Performed By: #### 9 9914 ####[address] URIC ACID BLOODon 10-30-2017 Urate mass conc 4.6 mg/dL Normal 2.3-6.6 The [facility] Comment on above: Performed By: #### 4 7130, 55734 ####[place] [address] CBC W/DIFFon 10-23-2017 ABS BASOPHILS 0.0 10*3/uL Normal 0.0-0.2 [facility] Comment on above: Performed By: #### 4 1436, 47031 ####[address] ABS IMM GRANS 0.1 10*3/uL Normal 0.0-0.2 [facility] Comment on above: Performed By: #### 4 6747, 13221 ####[address] ABS NEUTROPHILS 5.8 10*3/uL Normal 1.6-7.6 [facility] Comment on above: Performed By: #### 4 5547, 37354 ####[address] Basophils Auto #/vol (Bld) 0.2 % Normal 0.0-1.0 [facility] Comment on above: Performed By: #### 4 4808, 49891 ####[address] Eosinophils Auto #/vol (Bld) 0.1 10*3/uL Normal 0.0-0.5 [facility] Comment on above: Performed By: #### 4 2762, 34806 ####[facility] [place] [address], [facility] Eosinophils/100 WBC Auto (Bld) 0.7 % Normal 0.0-6.0 [facility] Comment on above: Performed By: #### 4 6447, 23310 ####[facility] Erythrocyte distribution width Auto Ratio (RBC) 14.6 % Normal 11.5-15.0 [facility] Comment on above: Performed By: #### 4 6447, 58163 ####[facility] [facility] Hematocrit Auto Volume Fraction (Bld) 44.2 % Normal 36.0-45.0 [facility] Comment on above: Performed By: #### 4 6447, 84153 ####[place] [address] [facility] Hemoglobin mass conc (Bld) 14.2 g/dL Normal 12.0-15.0 [facility] Comment on above: Performed By: #### 4 7947, 63235 ####[place] [address] [facility] [place] [address], [facility] IMMATURE GRANS 1.4 % High 0.0-1.0 [facility] Comment on above: Performed By: #### 4 6447, 10603 ####[facility] [place] [address], [facility] Lymphocytes Auto #/vol (Bld) 2.1 10*3/uL Normal 1.2-4.0 [facility] Comment on above: Performed By: #### 4 6447, 58948 ####[facility] [place] [address], [facility] Lymphocytes/100 WBC Auto (Bld) 22.5 % Normal 20.0-45.0 [facility] Comment on above: Performed By: #### 7 5547, 31829 ####[facility]3000 [facility].[address] MCH Auto Entitic mass (RBC) 28.5 pg Normal 27.0-33.0 [facility] Comment on above: Performed By: #### 4 2592, 22766 ####[facility]3000 [facility] MCHC Auto mass conc (RBC) 32.1 g/dL Normal 32.0-35.0 [facility] Comment on above: Performed By: #### 4 5450, 85660 ####[facility]3000 [facility].[address] MCV Auto Entitic volume (RBC) 88.8 fL Normal 82.0-98.0 [facility] Comment on above: Performed By: #### 1 6196, 25631 ####[facility] [place] [address].[address] Monocytes Auto #/vol (Bld) 1.1 10*3/uL High 0.1-1.0 [facility] Comment on above: Performed By: #### 4 9619, 94415 ####[facility]3000 [facility].[address] MONOS 12.0 % Normal 5.0-12.0 [facility] Comment on above: Performed By: #### 5 3198, 00993 ####[facility]3000 [facility].[address] Neutrophils/100 WBC Auto (Bld) 63.2 % Normal 40.0-72.0 [facility] Comment on above: Performed By: #### 8 1592, 60068 ####[facility] [facility] Nucleated RBC/100 WBC Ratio (Bld) 0 % Normal 0-0 [facility] Comment on above: Performed By: #### 4 6447, 47634 ####[facility] [place] [address], [facility] PLAT CNT 241 10*3/uL Normal 150-400 [facility] Comment on above: Performed By: #### 4 6447, 08612 ####[facility] [place] [address], [facility] RBC Auto #/vol (Bld) 4.98 10*6/uL Normal 3.80-5.00 [facility] Comment on above: Performed By: #### 4 6447, 75615 ####[facility] WBC Auto #/vol (Bld) 9.14 10*3/uL Normal 4.00-10.60 [facility] Comment on above: Performed By: #### 4 6447, 43357 ####[facility] COMP METABOLIC PANELon 10-23 Albumin mass conc 3.8 g/dL Normal 3.5-5.7 [facility] Comment on above: Performed By: #### 4 6447, 70515 ####[facility] ALKALINE PHOSPH 96 IU/L Normal 34-104 [facility] Comment on above: Performed By: #### 4 6447, 34084 ####[facility] ALT enzyme act/vol 15 U/L Normal 7-52 [facility] Comment on above: Performed By: #### 4 6447, 12545 ####[facility] AST enzyme act/vol 13 U/L Normal 13-39 [facility] Comment on above: Performed By: #### 4 6447, 77507 ####[facility] [place] [address], [place] Bilirubin mass conc 0.4 mg/dL Normal 0.3-1.[address] [facility] Comment on above: Performed By: #### 4 4447, 92235 ####[facility] [place] [address], [place] Calcium mass conc 9.2 mg/dL Normal 8.6-10.3 [facility] Comment on above: Performed By: #### 4 7447, 42440 ####[facility] [place] [address], [place] Chloride molar conc 102 mmol/L Normal 98-[address] [facility] Comment on above: Performed By: #### 4 4947, 00573 ####[facility] [place] [address], [place] CO2 molar conc 29 mmol/L Normal 21-31 [facility] Comment on above: Performed By: #### 4 9288, 17411 ####[facility] [place] [address], [place] Creatinine mass conc 0.80 mg/dL Normal 0.60-1.20 [facility] Comment on above: Performed By: #### 4 8347, 54636 ####[facility] [place] [address], [place] GFR/1.73 sq M predicted among blacks MDRD vol rate/area (S/P/Bld) mL/min/{1.73_m2} Normal >60 [facility] Comment on above: Performed By: #### 4 7947, 19514 ####[facility] [place] [address], [place] GFR/1.73 sq M predicted among non-blacks MDRD vol rate/area (S/P/Bld) mL/min/{1.73_m2} Normal >60 [facility] Comment on above: Performed By: #### 4 1493, 97770 ####[facility] [id number], [facility] Glucose mass conc 85 mg/dL Normal 70-100 [facility] Comment on above: Performed By: #### 4 6333, 31192 ####[facility] [place] [address], [facility] Potassium molar conc 3.3 mmol/L Low 3.5-5.1 [facility] Comment on above: Performed By: #### 4 8582, 69412 ####[place] [address] [place] [address], [facility] Protein mass conc 6.5 g/dL Normal 6.0-8.3 [facility] Comment on above: Performed By: #### 4 6823, 73103 ####[place] [address] [place] [address], [facility] Sodium molar conc 139 mmol/L Normal 136-145 [facility] Comment on above: Performed By: #### 4 5405, 98019 ####[facility] [place] [address], [facility] Urea nitrogen mass conc 18 mg/dL Normal 7-25 [facility] Comment on above: Performed By: #### 4 0380, 06724 ####[facility] [place] [address], [facility] DIRECT BILIon 10-23-2017 Bilirubin.direct mass conc 0.1 mg/dL Normal 0.0-0.2 [facility] Comment on above: Performed By: #### 7 9073, 66822 ####[facility]3000 [facility].[address] EVEROLIMUS 25413ks 8 EVEROLIMUS 4.0 ng/mL Normal [facility] Comment on above: Result Comment: Ther apeutic [...] the transplantcenter.Test developed and characteristics determined by [employer]. See Compliance Statement B: [employer]/CSPerformed by [employer],[address] [place] [address] [id number] gid.Datapp[employer], Leonid Antonio MD - Lab. Director LIPID PROFILEon 10-23-2017 Cholesterol in HDL mass conc 53 mg/dL Normal 23-92 [facility] Comment on above: Result Comment: Slig ht variation in normal range could be due to gender and/or age.HDL CHOLESTEROL REFERENCE RANGE:20 years and older Cardiovascular Risk> or =60 mg/dL [id number] TO 59 mg/dL Low Risk<40 mg/dL High Risk Performed By: #### 4 5272, 47131 ####[facility]3000 [facility].[address] Cholesterol in LDL mass conc 68 mg/dL Normal 0-130 [facility] Comment on above: Result Comment: LDL IS A CALCULATIONLDL IS ONLY VALID IF THE TRIG IS LESS THAN 400. Performed By: #### 4 0154, 17652 ####[facility]3000 [facility] [place] [address], [facility] Cholesterol mass conc 135 mg/dL Normal 120-200 [facility] Comment on above: Result Comment: CHOL ESTEROL REFERENCE RANGE:20 YEARS AND OLDER CARDIOVASCULAR RISKLess than 200 mg/dl Low Ewse765 to 239 mg/dl Borderline Buwg199 mg/dl and greater High Risk Performed By: #### 4 6447, 66814 ####[facility]3000 [facility] [place] [address], [facility] Cholesterol.total/C holesterol in HDL mass ratio 2.5 {ratio} Normal .0-4.5 [facility] Comment on above: Performed By: #### 4 8559, 57074 ####[facility]3000 [facility].[address] NON-HDL CHOLESTEROL 82 mg/dL Normal [facility] Comment on above: Performed By: #### 4 4556, 74177 ####[facility]3000 [facility].[address] Triglyceride mass conc 72 mg/dL Normal 40-149 [facility] Comment on above: Result Comment: TRIG LYCERIDE REFERENCE RANGE:20 YEARS AND OLDER CARDIOVASCULAR RISKLESS THAN 150 mg/dl LOW [id number] TO 199 mg/dl BORDERLINE [id number] mg/dl AND GREATER HIGH RISK Performed By: #### 4 0267, 30973 ####[facility]3000 [facility] [place] [address], [facility] VLDL CHOL 14 mg/dL Normal 0-40 [facility] Comment on above: Performed By: #### 4 0103, 51718 ####[facility]3000 [facility] [place] [address], [facility] MAGNESIUM BLOODon 10-23-2017 Magnesium mass conc 1.8 mg/dL Low 1.9-2.[address] [facility] Comment on above: Performed By: #### 4 6447, 17071 ####[place] [address] PHOSPHORUS BLOODon 8 Phosphate mass conc 3.7 mg/dL Normal 2.5-5.[address] [facility] Comment on above: Performed By: #### 4 6447, 26468 ####[address] TACROLIMUSon 10-23-2017 Tacrolimus mass conc (Bld) 2.6 ng/mL Low 5.0-20.0 [facility] Comment on above: Result Comment: The [employer] Tacrolimus assay is a delayed one-step immunoassayfor the quantitative determination of tacrolimus in human whole bloodusing the chemiluminescent microparticle immunoassay (CMIA) technologywith flexible assay protocols, referred to as Chemiflex. Performed By: #### 4 6447, 12463 ####[address] URIC ACID BLOODon 10-23-2017 Urate mass conc 4.3 mg/dL Normal 2.3-6.6 [facility] Comment on above: Performed By: #### 4 6447, 73633 ####[address] CBC W/DIFFon 09-25-2017 ABS BASOPHILS 0.0 10*3/uL Normal 0.0-0.2 [facility] Comment on above: Performed By: #### 4 1000, 79335, 22277, 14689, 16711, 74665 ####[address] ABS IMM GRANS 0.0 10*3/uL Normal 0.0-0.2 [facility] Comment on above: Performed By: #### 4 1000, 05600, 52978, 43724, 07104, 87303 ####[facility] [place] [address], [facility] ABS NEUTROPHILS 4.4 10*3/uL Normal 1.6-7.6 [facility] Comment on above: Performed By: #### 4 1000, 90106, 65000, 77671, 75000, 68872 ####[facility] [place] [address], [facility] Basophils Auto #/vol (Bld) 0.2 % Normal 0.0-1.0 [facility] Comment on above: Performed By: #### 4 1000, 31213, 84695, 35543, 02288, 37103 ####[facility]3000 [facility] [place] [address], [facility] Eosinophils Auto #/vol (Bld) 0.1 10*3/uL Normal 0.0-0.5 [facility] Comment on above: Performed By: #### 4 1000, 17239, 29580, 34405, 24036, 64311 ####[facility] [facility] Eosinophils/100 WBC Auto (Bld) 2.2 % Normal 0.0-6.0 [facility] Comment on above: Performed By: #### 4 1000, 76736, 69151, 64236, 00965, 00341 ####[place] [address] [facility].[address] Erythrocyte distribution width Auto Ratio (RBC) 14.0 % Normal 11.5-15.0 [facility] Comment on above: Performed By: #### 4 1000, 47313, 17450, 36943, 55346, 49436 ####[facility] Hematocrit Auto Volume Fraction (Bld) 44.8 % Normal 36.0-45.0 [facility] Comment on above: Performed By: #### 4 1000, 31909, 31092, 36936, 50386, 28579 ####[facility]3000 [facility].[address] Hemoglobin mass conc (Bld) 14.5 g/dL Normal 12.0-15.0 [facility] Comment on above: Performed By: #### 4 1000, 40538, 68406, 14933, 66862, 32453 ####[facility]3000 [facility].[address] IMMATURE GRANS 0.3 % Normal 0.0-1.0 [facility] Comment on above: Performed By: #### 4 1000, 36947, 93215, 96220, 46641, 88581 ####[place] [address] Lymphocytes Auto #/vol (Bld) 1.1 10*3/uL Low 1.2-4.0 [facility] Comment on above: Performed By: #### 4 1000, 97912, 80607, 53716, 58360, 71816 ####[facility] Lymphocytes/100 WBC Auto (Bld) 17.0 % Low 20.0-45.0 [facility] Comment on above: Performed By: #### 4 1000, 12370, 89156, 33510, 67081, 20890 ####[facility]3000 [facility].[address] MCH Auto Entitic mass (RBC) 28.6 pg Normal 27.0-33.0 [facility] Comment on above: Performed By: #### 4 1000, 78596, 08113, 40815, 62388, 87107 ####[facility] MCHC Auto mass conc (RBC) 32.4 g/dL Normal 32.0-35.0 [facility] Comment on above: Performed By: #### 4 1000, 73245, 85934, 12300, 61160, 33476 ####[facility] MCV Auto Entitic volume (RBC) 88.4 fL Normal 82.0-98.0 [facility] Comment on above: Performed By: #### 4 1000, 57070, 14268, 84670, 03097, 87774 ####[facility] Monocytes Auto #/vol (Bld) 0.7 10*3/uL Normal 0.1-1.0 [facility] Comment on above: Performed By: #### 4 1000, 06607, 41953, 85809, 93175, 35746 ####[facility] MONOS 11.5 % Normal 5.0-12.0 [facility] Comment on above: Performed By: #### 4 1000, 19865, 44296, 18123, 65827, 77571 ####[facility] Neutrophils/100 WBC Auto (Bld) 68.8 % Normal 40.0-72.0 [facility] Comment on above: Performed By: #### 4 1000, 36311, 55810, 64511, 64215, 70212 ####[facility] Nucleated RBC/100 WBC Ratio (Bld) 0 % Normal 0-0 [facility] Comment on above: Performed By: #### 4 1000, 35324, 67288, 12804, 34252, 41662 ####[facility] [place] [address], [facility] PLAT CNT 212 10*3/uL Normal 150-400 [facility] Comment on above: Performed By: #### 4 1000, 09060, 13716, 04536, 51723, 97711 ####[facility] RBC Auto #/vol (Bld) 5.07 10*6/uL High 3.80-5.00 [facility] Comment on above: Performed By: #### 4 1000, 66137, 13441, 01777, 47417, 03137 ####[facility] WBC Auto #/vol (Bld) 6.34 10*3/uL Normal 4.00-10.60 [facility] Comment on above: Performed By: #### 4 1000, 72136, 53365, 86216, 71374, 83206 ####[facility]3000 [facility].[address] COMP METABOLIC PANELon 09-25 Albumin mass conc 4.0 g/dL Normal 3.5-5.7 [facility] Comment on above: Performed By: #### 4 4747, 58347 ####[facility]3000 [facility].[address] ALKALINE PHOSPH 112 IU/L High 34-104 [facility] Comment on above: Performed By: #### 4 5347, 17857 ####[facility]3000 [facility].[address] ALT enzyme act/vol 11 U/L Normal 7-52 [facility] Comment on above: Performed By: #### 4 0883, 05313 ####[facility] AST enzyme act/vol 17 U/L Normal 13-39 [facility] Comment on above: Performed By: #### 4 0990, 56951 ####[facility] [place] [address], [place] Bilirubin mass conc 0.5 mg/dL Normal 0.3-1.[address] [facility] Comment on above: Performed By: #### 4 6447, 53840 ####[facility] [place] [address], [place] Calcium mass conc 9.6 mg/dL Normal 8.6-10.3 [facility] Comment on above: Performed By: #### 4 1700, 64517 ####[facility] [place] [address], [place] Chloride molar conc 104 mmol/L Normal 98-[address] [facility] Comment on above: Performed By: #### 4 0047, 50475 ####[facility] [place] [address], [place] CO2 molar conc 28 mmol/L Normal 21-31 [facility] Comment on above: Performed By: #### 5 6650, 64552 ####[facility] [place] [address], [place] Creatinine mass conc 0.83 mg/dL Normal 0.60-1.20 [facility] Comment on above: Performed By: #### 4 6418, 64140 ####[facility] [place] [address], [place] GFR/1.73 sq M predicted among blacks MDRD vol rate/area (S/P/Bld) mL/min/{1.73_m2} Normal >60 [facility] Comment on above: Performed By: #### 4 0663, 91048 ####[facility] [facility] [place] [address], [place] GFR/1.73 sq M predicted among non-blacks MDRD vol rate/area (S/P/Bld) mL/min/{1.73_m2} Normal >60 [facility] Comment on above: Performed By: #### 4 6447, 72030 ####[facility] [place] [address], [facility] Glucose mass conc 91 mg/dL Normal 70-100 [facility] Comment on above: Performed By: #### 4 6447, 62589 ####[facility] [place] [address], [facility] Potassium molar conc 3.9 mmol/L Normal 3.5-5.1 [facility] Comment on above: Performed By: #### 4 6447, 18509 ####[place] [address] Protein mass conc 7.0 g/dL Normal 6.0-8.3 [facility] Comment on above: Performed By: #### 4 7547, 27344 ####[facility] Sodium molar conc 140 mmol/L Normal 136-145 [facility] Comment on above: Performed By: #### 4 4047, 59286 ####[place] [address] [place] [address], [facility] Urea nitrogen mass conc 15 mg/dL Normal 7-25 [facility] Comment on above: Performed By: #### 4 7847, 60789 ####[facility] DIRECT BILIon 09-25-2017 Bilirubin.direct mass conc 0.1 mg/dL Normal 0.0-0.2 [facility] Comment on above: Performed By: #### 4 6447, 78986 ####[facility] [place] [address], [facility] EVEROLIMUS [id number] 8 EVEROLIMUS 5.1 ng/mL Normal [facility] Comment on above: Result Comment: Ther apeutic [...] the transplantcenter.Test developed and characteristics determined by [employer]. See Compliance Statement B: Datappraise/CSPerformed by [employer],[address] [place] [address] [id number] gbd.Datappraise, Leonid Antonio MD - Lab. Director LIPID PROFILEon 09-25-2017 Cholesterol in HDL mass conc 48 mg/dL Normal 23-92 [facility] Comment on above: Result Comment: Slig ht variation in normal range could be due to gender and/or age.HDL CHOLESTEROL REFERENCE RANGE:20 years and older Cardiovascular Risk> or =60 mg/dL Gwaopdmtg08 TO 59 mg/dL Low Risk<40 mg/dL High Risk Performed By: #### 9 6713, 62580 ####[facility] [place] [address], [facility] Cholesterol in LDL mass conc 69 mg/dL Normal 0-130 [facility] Comment on above: Result Comment: LDL IS A CALCULATIONLDL IS ONLY VALID IF THE TRIG IS LESS THAN 400. Performed By: #### 9 9069, 90423 ####[facility] [facility] Cholesterol mass conc 138 mg/dL Normal 120-200 [facility] Comment on above: Result Comment: CHOL ESTEROL REFERENCE RANGE:20 YEARS AND OLDER CARDIOVASCULAR RISKLess than 200 mg/dl Low Sbjy065 to 239 mg/dl Borderline Hrxw971 mg/dl and greater High Risk Performed By: #### 4 9148, 90837 ####[facility] [place] [address], [facility] Cholesterol.total/C holesterol in HDL mass ratio 2.9 {ratio} Normal .0-4.5 [facility] Comment on above: Performed By: #### 4 1352, 28394 ####[facility] [facility] NON-HDL CHOLESTEROL 90 mg/dL Normal [facility] Comment on above: Performed By: #### 4 4955, 17304 ####[facility] [facility] Triglyceride mass conc 103 mg/dL Normal 40-149 [facility] Comment on above: Result Comment: TRIG LYCERIDE REFERENCE RANGE:20 YEARS AND OLDER CARDIOVASCULAR RISKLESS THAN 150 mg/dl LOW EJPN350 TO 199 mg/dl BORDERLINE FMSR426 mg/dl AND GREATER HIGH RISK Performed By: #### 4 4902, 70609 ####[facility] [place] [address], [facility] VLDL CHOL 21 mg/dL Normal 0-40 [facility] Comment on above: Performed By: #### 4 4773, 56916 ####[facility] [facility] [place] [address], [facility] MAGNESIUM BLOODon 09-25-2017 Magnesium mass conc 1.8 mg/dL Low 1.9-2.[address] [facility] Comment on above: Performed By: #### 4 6955, 88498 ####[facility] PHOSPHORUS BLOODon 8 Phosphate mass conc 3.4 mg/dL Normal 2.5-5.[address] [facility] Comment on above: Performed By: #### 4 6447, 70847 ####[address] TACROLIMUSon 09-25-2017 Tacrolimus mass conc (Bld) 3.6 ng/mL Low 5.0-20.0 [facility] Comment on above: Result Comment: The [employer] Tacrolimus assay is a delayed one-step immunoassayfor the quantitative determination of tacrolimus in human whole bloodusing the chemiluminescent microparticle immunoassay (CMIA) technologywith flexible assay protocols, referred to as Chemiflex. Performed By: #### 4 6447, 90766 ####[address] URIC ACID BLOODon 09-25-2017 Urate mass conc 4.7 mg/dL Normal 2.3-6.6 The [facility] Comment on above: Performed By: #### 4 6447, 60640 ####[address] BK VIRUS QUANTITATION PCR BL OODon 08-26-2017 BKV QUANT PCR Not detected Normal The [facility] Comment on above: Result Comment: Meth od: BK virus was measured by quantitative polymerase chain reactionusing a TaqMan probe targeting the polyomavirus BK [employer]OM[employer] CENTER MANAGER-1 gene.The lower limit of quantitation of the assay is 500 copies of BK genomeper milliliter of plasma or urine, and any detectable BK DNA below thatlevel is reported as: Detected, <500 copies/ml. Serial BK virusmeasurement can be used to monitor disease activity. (Reference:Kelsie vaughanl. J CLIN MICRO 2004; 42:2744-9092).This test was developed and its performance characteristics determinedby the [facility] Molecular Diagnostics Laboratory. It has not been approvedby the US Food and Drug Administration. However, such approval is notrequired for clinical implementation, and test results have been shownto be clinically useful. This laboratory is CAP accredited and CLIAcertified to perform high complexity testing. Performed By: #### 4 1000, 21193, 08369, 78992, 45581, 81153 ####[facility] LOG 10 COPIES Not detected Normal The [facility] Comment on above: Performed By: #### 4 1000, 88921, 50933, 08532, 13159, 28469 ####[facility] CBC W/DIFFon 08-26-2017 ABS BASOPHILS 0.0 10*3/uL Normal 0.0-0.2 [facility] Comment on above: Performed By: #### 4 1000, 68951, 27738, 46351, 01424, 81100 ####[facility] ABS IMM GRANS 0.0 10*3/uL Normal 0.0-0.2 [facility] Comment on above: Performed By: #### 4 1000, 65732, 87146, 11064, 72114, 11539 ####[facility] ABS NEUTROPHILS 4.5 10*3/uL Normal 1.6-7.6 The [facility] Comment on above: Performed By: #### 4 1000, 28632, 60545, 45874, 19023, 67906 ####[facility]3000 [facility].[address] Basophils Auto #/vol (Bld) 0.2 % Normal 0.0-1.0 [facility] Comment on above: Performed By: #### 4 1000, 17793, 91694, 35845, 32727, 99623 ####[facility]3000 [facility].[address] Eosinophils Auto #/vol (Bld) 0.2 10*3/uL Normal 0.0-0.5 [facility] Comment on above: Performed By: #### 4 1000, 33058, 30948, 28244, 21234, 25096 ####[facility] Eosinophils/100 WBC Auto (Bld) 2.4 % Normal 0.0-6.0 [facility] Comment on above: Performed By: #### 4 1000, 17966, 77830, 45078, 50325, 14125 ####[facility] Erythrocyte distribution width Auto Ratio (RBC) 14.0 % Normal 11.5-15.0 [facility] Comment on above: Performed By: #### 4 1000, 63056, 93971, 25306, 80541, 80396 ####[facility] Hematocrit Auto Volume Fraction (Bld) 44.9 % Normal 36.0-45.0 [facility] Comment on above: Performed By: #### 4 1000, 47975, 91311, 91324, 75188, 01071 ####[facility] Hemoglobin mass conc (Bld) 14.9 g/dL Normal 12.0-15.0 [facility] Comment on above: Performed By: #### 4 1000, 95579, 30976, 30312, 04230, 26249 ####[facility] IMMATURE GRANS 0.5 % Normal 0.0-1.0 [facility] Comment on above: Performed By: #### 4 1000, 19052, 25990, 35045, 01562, 15964 ####[facility] Lymphocytes Auto #/vol (Bld) 1.0 10*3/uL Low 1.2-4.0 [facility] Comment on above: Performed By: #### 4 1000, 25714, 25674, 00678, 20474, 13962 ####[address] Lymphocytes/100 WBC Auto (Bld) 15.8 % Low 20.0-45.0 [facility] Comment on above: Performed By: #### 4 1000, 82516, 49036, 85576, 29323, 37523 ####[address] MCH Auto Entitic mass (RBC) 29.1 pg Normal 27.0-33.0 [facility] Comment on above: Performed By: #### 4 1000, 45667, 31570, 55281, 41891, 44773 ####[address] MCHC Auto mass conc (RBC) 33.2 g/dL Normal 32.0-35.0 [facility] Comment on above: Performed By: #### 4 1000, 06282, 87150, 48560, 08071, 22786 ####[address] MCV Auto Entitic volume (RBC) 87.7 fL Normal 82.0-98.0 [facility] Comment on above: Performed By: #### 4 1000, 27562, 61502, 07206, 48779, 60469 ####[address] Monocytes Auto #/vol (Bld) 0.7 10*3/uL Normal 0.1-1.0 [facility] Comment on above: Performed By: #### 4 1000, 29275, 52666, 34169, 55936, 50396 ####[facility] [place] [address], [facility] MONOS 10.6 % Normal 5.0-12.0 [facility] Comment on above: Performed By: #### 4 1000, 78014, 27380, 48121, 27636, 35726 ####[facility] [place] [address], [facility] Neutrophils/100 WBC Auto (Bld) 70.5 % Normal 40.0-72.0 [facility] Comment on above: Performed By: #### 4 1000, 26562, 73528, 80549, 15994, 99758 ####[facility] [place] [address], [facility] Nucleated RBC/100 WBC Ratio (Bld) 0 % Normal 0-0 [facility] Comment on above: Performed By: #### 4 1000, 83497, 79195, 48617, 35812, 32328 ####[facility] PLAT CNT 231 10*3/uL Normal 150-400 [facility] Comment on above: Performed By: #### 4 1000, 96634, 49617, 44858, 75587, 87927 ####[facility] RBC Auto #/vol (Bld) 5.12 10*6/uL High 3.80-5.00 [facility] Comment on above: Performed By: #### 4 1000, 16401, 21137, 06450, 96745, 44085 ####[facility] [place] [address], [facility] WBC Auto #/vol (Bld) 6.32 10*3/uL Normal 4.00-10.60 [facility] Comment on above: Performed By: #### 4 1000, 69813, 62314, 09802, 68683, 60737 ####[facility] COMP METABOLIC PANELon 08-26 Albumin mass conc 4.3 g/dL Normal 3.5-5.7 [facility] Comment on above: Performed By: #### 4 1000, 93000, 12169, 03910, 60223, 35492 ####[facility] ALKALINE PHOSPH 125 IU/L High 34-104 The [facility] Comment on above: Performed By: #### 4 1000, 33465, 83202, 50306, 15618, 53947 ####[facility] ALT enzyme act/vol 17 U/L Normal 7-52 [facility] Comment on above: Performed By: #### 4 1000, 55784, 93277, 96645, 73587, 16922 ####[facility] AST enzyme act/vol 23 U/L Normal 13-39 [facility] Comment on above: Performed By: #### 4 1000, 07324, 34013, 21608, 89147, 98516 ####[facility] Bilirubin mass conc 0.4 mg/dL Normal 0.3-1.[address] [facility] Comment on above: Performed By: #### 4 1000, 91253, 93001, 22012, 18178, 16228 ####[facility] Calcium mass conc 9.6 mg/dL Normal 8.6-10.3 [facility] Comment on above: Performed By: #### 4 1000, 07405, 10539, 91149, 65805, 84443 ####[facility] [place] [address], [place] Chloride molar conc 104 mmol/L Normal 98-107 [facility] Comment on above: Performed By: #### 4 1000, 17684, 33115, 52108, 06165, 87488 ####[facility] [place] [address], [place] CO2 molar conc 27 mmol/L Normal 21-31 [facility] Comment on above: Performed By: #### 4 1000, 58451, 31520, 95731, 62194, 60155 ####[facility] [place] [address], [place] Creatinine mass conc 0.77 mg/dL Normal 0.60-1.20 [facility] Comment on above: Performed By: #### 4 1000, 77315, 94878, 87016, 77879, 28838 ####[facility] [place] [address], [place] GFR/1.73 sq M predicted among blacks MDRD vol rate/area (S/P/Bld) mL/min/{1.73_m2} Normal >60 [facility] Comment on above: Performed By: #### 4 1000, 17688, 34112, 43550, 99628, 34477 ####[facility] [place] [address], [place] GFR/1.73 sq M predicted among non-blacks MDRD vol rate/area (S/P/Bld) mL/min/{1.73_m2} Normal >60 [facility] Comment on above: Performed By: #### 4 1000, 97613, 25514, 82521, 48920, 66837 ####[facility] [place] [address], [place] Glucose mass conc 95 mg/dL Normal 70-100 [facility] Comment on above: Performed By: #### 4 1000, 34648, 17955, 83520, 93521, 26817 ####[facility] [place] [address], [facility] Potassium molar conc 4.1 mmol/L Normal 3.5-5.1 [facility] Comment on above: Performed By: #### 4 1000, 56427, 21803, 67351, 95522, 20169 ####[facility] [place] [address], [facility] Protein mass conc 7.3 g/dL Normal 6.0-8.3 [facility] Comment on above: Performed By: #### 4 1000, 36115, 47361, 31393, 94423, 51545 ####[facility] [place] [address], [facility] Sodium molar conc 139 mmol/L Normal 136-145 [facility] Comment on above: Performed By: #### 4 1000, 78558, 28877, 60349, 99404, 20977 ####[facility] [place] [address], [facility] Urea nitrogen mass conc 12 mg/dL Normal 7-25 [facility] Comment on above: Performed By: #### 4 1000, 39843, 53152, 57297, 97409, 30742 ####[facility] [place] [address], [facility] DIRECT BILIon 08-26-2017 Bilirubin.direct mass conc 0.1 mg/dL Normal 0.0-0.2 [facility] Comment on above: Performed By: #### 4 1000, 05069, 73963, 53749, 73949, 65996 ####[facility] [place] [address], [place] EVEROLIMUS [id number] 05-29-201 8 EVEROLIMUS 5.6 ng/mL Normal [facility] Comment on above: Result Comment: Ther apeutic [...] the transplantcenter.Test developed and characteristics determined by [employer]. See Compliance Statement B: Datappraise/CSPerformed by [employer],[address] [place] [address] [id number] gzf.Datapp[employer], Leonid Antonio MD - Lab. Director HEMOGLOBIN A1Con 08-26-2017 Glucose mass conc 114 mg/dL Normal 70-126 [facility] Comment on above: Performed By: #### 4 1000, 04035, 39862, 81044, 52149, 80717 ####[facility] [place] [address], [facility] Hemoglobin A1c/Hemoglobin.tota l mass fraction (Bld) 5.6 % Normal 4.0-6.0 [facility] Comment on above: Performed By: #### 4 1000, 00618, 31062, 09002, 30110, 04853 ####[facility] [place] [address], [facility] LIPID PROFILEon 08-26-2017 Cholesterol in HDL mass conc 49 mg/dL Normal 23-92 [facility] Comment on above: Result Comment: Slig ht variation in normal range could be due to gender and/or age.HDL CHOLESTEROL REFERENCE RANGE:20 years and older Cardiovascular Risk> or =60 mg/dL Eajcdzixo58 TO 59 mg/dL Low Risk<40 mg/dL High Risk Performed By: #### 4 1000, 41315, 40523, 01301, 47129, 89494 ####[facility] [place] [address], [facility] Cholesterol in LDL mass conc 76 mg/dL Normal 0-130 [facility] Comment on above: Result Comment: LDL IS A CALCULATIONLDL IS ONLY VALID IF THE TRIG IS LESS THAN 400. Performed By: #### 4 1000, 78634, 60304, 22134, 78794, 12161 ####[facility] [place] [address], [facility] Cholesterol mass conc 152 mg/dL Normal 120-200 [facility] Comment on above: Result Comment: CHOL ESTEROL REFERENCE RANGE:20 YEARS AND OLDER CARDIOVASCULAR RISKLess than 200 mg/dl Low Ulpz160 to 239 mg/dl Borderline Qyqj539 mg/dl and greater High Risk Performed By: #### 4 1000, 36794, 99201, 39157, 23115, 44640 ####[facility] [place] [address], [facility] Cholesterol.total/C holesterol in HDL mass ratio 3.1 {ratio} Normal .0-4.5 [facility] Comment on above: Performed By: #### 4 1000, 98696, 78883, 79472, 89349, 46535 ####[facility] [place] [address], [facility] NON-HDL CHOLESTEROL 103 mg/dL Normal [facility] Comment on above: Performed By: #### 4 1000, 79473, 24757, 21551, 88045, 55862 ####[facility] Triglyceride mass conc 133 mg/dL Normal 40-149 [facility] Comment on above: Result Comment: TRIG LYCERIDE REFERENCE RANGE:20 YEARS AND OLDER CARDIOVASCULAR RISKLESS THAN 150 mg/dl LOW [id number] TO 199 mg/dl BORDERLINE IUMI375 mg/dl AND GREATER HIGH RISK Performed By: #### 4 1000, 62558, 01321, 49550, 41313, 64868 ####[facility]3000 [facility].[address] VLDL CHOL 27 mg/dL Normal 0-40 [facility] Comment on above: Performed By: #### 4 1000, 22228, 77175, 26240, 37737, 84524 ####[facility]3000 [facility].[address] MAGNESIUM BLOODon 08-26-2017 Magnesium mass conc 1.9 mg/dL Normal 1.9-2.[address] [facility] Comment on above: Performed By: #### 4 1000, 46501, 00758, 75645, 98950, 45818 ####[facility]3000 [facility].[address] PHOSPHORUS BLOODon 8 Phosphate mass conc 3.4 mg/dL Normal 2.5-5.[address] [facility] Comment on above: Performed By: #### 4 1000, 37051, 24010, 51588, 12734, 46168 ####[facility]3000 [facility].[address] TACROLIMUSon 08-26-2017 Tacrolimus mass conc (Bld) 4.3 ng/mL Low 5.0-20.0 [facility] Comment on above: Result Comment: The [employer] Tacrolimus assay is a delayed one-step immunoassayfor the quantitative determination of tacrolimus in human whole bloodusing the chemiluminescent microparticle immunoassay (CMIA) technologywith flexible assay protocols, referred to as Chemiflex. Performed By: #### 4 1000, 16795, 89245, 58452, 20234, 93167 ####[facility]3000 [facility].[address] URIC ACID BLOODon 08-26-2017 Urate mass conc 4.6 mg/dL Normal 2.3-6.6 [facility] Comment on above: Performed By: #### 4 1000, 99283, 68630, 47984, 94510, 80889 ####[facility]3000 [facility].[address] CBC W/DIFFon 07-23-2017 ABS BASOPHILS 0.0 10*3/uL Normal 0.0-0.2 [facility] Comment on above: Performed By: #### 4 1000, 96729, 18009, 82249, 17717, 04661 ####[facility] ABS IMM GRANS 0.0 10*3/uL Normal 0.0-0.2 [facility] Comment on above: Performed By: #### 4 1000, 18750, 43635, 35517, 16082, 38219 ####[facility]3000 [facility].[address] ABS NEUTROPHILS 4.4 10*3/uL Normal 1.6-7.6 [facility] Comment on above: Performed By: #### 4 1000, 51208, 58431, 51979, 56641, 82708 ####[facility]3000 [facility].[address] Basophils Auto #/vol (Bld) 0.2 % Normal 0.0-1.0 [facility] Comment on above: Performed By: #### 4 1000, 73409, 31013, 05381, 97748, 42364 ####[facility]3000 [facility].[address] Eosinophils Auto #/vol (Bld) 0.1 10*3/uL Normal 0.0-0.5 [facility] Comment on above: Performed By: #### 4 1000, 56304, 58841, 26539, 89582, 08914 ####[facility] [facility] Eosinophils/100 WBC Auto (Bld) 2.1 % Normal 0.0-6.0 [facility] Comment on above: Performed By: #### 4 1000, 23176, 57351, 07522, 34521, 40776 ####[facility] Erythrocyte distribution width Auto Ratio (RBC) 13.7 % Normal 11.5-15.0 [facility] Comment on above: Performed By: #### 4 1000, 35341, 28014, 32687, 08218, 71046 ####[facility] [facility] Hematocrit Auto Volume Fraction (Bld) 44.4 % Normal 36.0-45.0 [facility] Comment on above: Performed By: #### 4 1000, 80356, 50614, 79684, 56290, 66946 ####[facility] [facility] Hemoglobin mass conc (Bld) 14.7 g/dL Normal 12.0-15.0 [facility] Comment on above: Performed By: #### 4 1000, 47726, 62199, 25570, 55800, 89047 ####[facility] [facility] IMMATURE GRANS 0.5 % Normal 0.0-1.0 [facility] Comment on above: Performed By: #### 4 1000, 19963, 28293, 66610, 38581, 64818 ####[facility] Lymphocytes Auto #/vol (Bld) 1.0 10*3/uL Low 1.2-4.0 [facility] Comment on above: Performed By: #### 4 1000, 88236, 42932, 62844, 02616, 33390 ####[facility] Lymphocytes/100 WBC Auto (Bld) 15.5 % Low 20.0-45.0 [facility] Comment on above: Performed By: #### 4 1000, 46864, 66662, 17456, 66740, 53946 ####[facility] [facility] MCH Auto Entitic mass (RBC) 28.9 pg Normal 27.0-33.0 [facility] Comment on above: Performed By: #### 4 1000, 83357, 90453, 85713, 82381, 55355 ####[facility] MCHC Auto mass conc (RBC) 33.1 g/dL Normal 32.0-35.0 [facility] Comment on above: Performed By: #### 4 1000, 60217, 19032, 00013, 52199, 50093 ####[facility]3000 [facility].[address] MCV Auto Entitic volume (RBC) 87.4 fL Normal 82.0-98.0 [facility] Comment on above: Performed By: #### 4 1000, 72938, 50347, 79098, 71394, 51832 ####[facility]3000 [facility].[address] Monocytes Auto #/vol (Bld) 0.8 10*3/uL Normal 0.1-1.0 [facility] Comment on above: Performed By: #### 4 1000, 33865, 43854, 62516, 83413, 51496 ####[facility]3000 [facility] [place] [address], [facility] MONOS 12.3 % High 5.0-12.0 [facility] Comment on above: Performed By: #### 4 1000, 85931, 13528, 48002, 75382, 87009 ####[facility]3000 [facility] [place] [address], [facility] Neutrophils/100 WBC Auto (Bld) 69.4 % Normal 40.0-72.0 [facility] Comment on above: Performed By: #### 4 1000, 95198, 73503, 65119, 39477, 02144 ####[facility]3000 [facility] [place] [address], [facility] Nucleated RBC/100 WBC Ratio (Bld) 0 % Normal 0-0 [facility] Comment on above: Performed By: #### 4 1000, 01766, 66381, 47397, 12996, 44051 ####[facility]3000 [facility] [place] [address], [facility] PLAT CNT 218 10*3/uL Normal 150-400 [facility] Comment on above: Performed By: #### 4 1000, 07703, 61112, 08366, 34897, 81688 ####[facility]3000 [facility] [place] [address], [facility] RBC Auto #/vol (Bld) 5.08 10*6/uL High 3.80-5.00 [facility] Comment on above: Performed By: #### 4 1000, 29594, 67451, 46266, 36328, 98107 ####[facility]3000 [facility] [place] [address], [facility] WBC Auto #/vol (Bld) 6.3 10*3/uL Normal 4.0-10.6 [facility] Comment on above: Performed By: #### 4 1000, 15681, 33557, 39257, 27727, 22261 ####[facility] COMP METABOLIC PANELon 07-23 Albumin mass conc 4.2 g/dL Normal 3.5-5.7 [facility] Comment on above: Performed By: #### 4 1000, 52445, 43372, 37355, 95419, 19283 ####[facility] ALKALINE PHOSPH 113 IU/L High 34-104 [facility] Comment on above: Performed By: #### 4 1000, 66426, 42629, 86733, 71848, 24140 ####[facility] ALT enzyme act/vol 23 U/L Normal 7-52 [facility] Comment on above: Performed By: #### 4 1000, 60018, 59913, 76163, 77760, 46194 ####[facility] AST enzyme act/vol 25 U/L Normal 13-39 [facility] Comment on above: Performed By: #### 4 1000, 76292, 96345, 30570, 99510, 80450 ####[facility] [place] [address], [facility] Bilirubin mass conc 0.6 mg/dL Normal 0.3-1.[address] [facility] Comment on above: Performed By: #### 4 1000, 77126, 69414, 82183, 81825, 32166 ####[facility] [place] [address], [facility] Calcium mass conc 9.6 mg/dL Normal 8.6-10.3 [facility] Comment on above: Performed By: #### 4 1000, 19646, 97914, 67732, 10597, 99843 ####[facility] [place] [address], [place] Chloride molar conc 104 mmol/L Normal 98-107 [facility] Comment on above: Performed By: #### 4 1000, 62256, 15943, 94047, 77219, 15689 ####[facility] [place] [address], [place] CO2 molar conc 25 mmol/L Normal 21-31 [facility] Comment on above: Performed By: #### 4 1000, 25911, 99400, 70994, 29681, 12484 ####[facility] [place] [address], [place] Creatinine mass conc 0.80 mg/dL Normal 0.60-1.20 [facility] Comment on above: Performed By: #### 4 1000, 46064, 06565, 77394, 99052, 15427 ####[facility] [place] [address], [place] GFR/1.73 sq M predicted among blacks MDRD vol rate/area (S/P/Bld) mL/min/{1.73_m2} Normal >60 [facility] Comment on above: Performed By: #### 4 1000, 12260, 94213, 07487, 35169, 64942 ####[facility] [place] [address], [place] GFR/1.73 sq M predicted among non-blacks MDRD vol rate/area (S/P/Bld) mL/min/{1.73_m2} Normal >60 [facility] Comment on above: Performed By: #### 4 1000, 82218, 86987, 17281, 42347, 41582 ####[facility] [place] [address], [place] Glucose mass conc 91 mg/dL Normal 70-100 [facility] Comment on above: Performed By: #### 4 1000, 22682, 06640, 70201, 79291, 66309 ####[facility] Potassium molar conc 4.0 mmol/L Normal 3.5-5.1 [facility] Comment on above: Performed By: #### 4 1000, 10535, 94911, 31073, 25194, 58546 ####[facility] Protein mass conc 6.8 g/dL Normal 6.0-8.3 [facility] Comment on above: Performed By: #### 4 1000, 85661, 83968, 74841, 56273, 66991 ####[facility] Sodium molar conc 140 mmol/L Normal 136-145 [facility] Comment on above: Performed By: #### 4 1000, 80089, 65784, 58022, 34799, 48089 ####[facility] Urea nitrogen mass conc 16 mg/dL Normal 7-25 [facility] Comment on above: Performed By: #### 4 1000, 71385, 63426, 89184, 33391, 47676 ####[facility] DIRECT BILIon 07-23-2017 Bilirubin.direct mass conc 0.2 mg/dL Normal 0.0-0.2 [facility] Comment on above: Performed By: #### 4 1000, 49707, 55636, 72993, 40508, 93316 ####[facility] [place] [address], [facility] EVEROLIMUS [id number] EVEROLIMUS 5.3 ng/mL Normal [facility] Comment on above: Result Comment: Ther apeutic [...] the transplantcenter.Test developed and characteristics determined by [employer]. See Compliance Statement B: Datappraise/CSPerformed by [employer],[address] [place] [address] iqq.Datappraise, Leonid Antonio MD - Lab. Director LIPID PROFILEon 07-23-2017 Cholesterol in HDL mass conc 45 mg/dL Normal 23-92 [facility] Comment on above: Result Comment: Slig ht variation in normal range could be due to gender and/or age.HDL CHOLESTEROL REFERENCE RANGE:20 years and older Cardiovascular Risk> or =60 mg/dL Bwsswadyc97 TO 59 mg/dL Low Risk<40 mg/dL High Risk Performed By: #### 4 1000, 02671, 72920, 41912, 50550, 46464 ####[facility] [place] [address], [facility] Cholesterol in LDL mass conc 79 mg/dL Normal 0-130 [facility] Comment on above: Result Comment: LDL IS A CALCULATIONLDL IS ONLY VALID IF THE TRIG IS LESS THAN 400. Performed By: #### 4 1000, 74214, 61018, 69076, 34729, 00249 ####[facility] [place] [address], [facility] Cholesterol mass conc 141 mg/dL Normal 120-200 [facility] Comment on above: Result Comment: CHOL ESTEROL REFERENCE RANGE:20 YEARS AND OLDER CARDIOVASCULAR RISKLess than 200 mg/dl Low Blzt721 to 239 mg/dl Borderline Fpew244 mg/dl and greater High Risk Performed By: #### 4 1000, 58673, 47150, 60711, 46453, 09168 ####[facility] [place] [address], [facility] Cholesterol.total/C holesterol in HDL mass ratio 3.1 {ratio} Normal .0-4.5 [facility] Comment on above: Performed By: #### 4 1000, 48843, 76562, 11061, 52798, 00795 ####[facility] NON-HDL CHOLESTEROL 96 mg/dL Normal The [facility] Comment on above: Performed By: #### 4 1000, 86625, 94906, 52000, 56419, 09923 ####[facility] [place] [address], [facility] Triglyceride mass conc 83 mg/dL Normal 40-149 [facility] Comment on above: Result Comment: TRIG LYCERIDE REFERENCE RANGE:20 YEARS AND OLDER CARDIOVASCULAR RISKLESS THAN 150 mg/dl LOW [id number] TO 199 mg/dl BORDERLINE DAHG996 mg/dl AND GREATER HIGH RISK Performed By: #### 4 1000, 68502, 47250, 76088, 51491, 85936 ####[facility] [place] [address], [facility] VLDL CHOL 17 mg/dL Normal 0-40 [facility] Comment on above: Performed By: #### 4 1000, 85360, 57511, 42120, 32244, 06972 ####[facility] MAGNESIUM BLOODon 07-23-2017 Magnesium mass conc 2.0 mg/dL Normal 1.9-2.[address] [facility] Comment on above: Performed By: #### 4 1000, 47049, 07193, 87598, 73511, 18851 ####[facility]3000 [facility].[address] PHOSPHORUS BLOODon 8 Phosphate mass conc 4.0 mg/dL Normal 2.5-5.[address] [facility] Comment on above: Performed By: #### 4 1000, 71569, 56928, 92745, 83734, 96139 ####[facility]3000 [facility].[address] TACROLIMUSon 07-23-2017 Tacrolimus mass conc (Bld) 4.6 ng/mL Low 5.0-20.0 [facility] Comment on above: Result Comment: The [employer] Tacrolimus assay is a delayed one-step immunoassayfor the quantitative determination of tacrolimus in human whole bloodusing the chemiluminescent microparticle immunoassay (CMIA) technologywith flexible assay protocols, referred to as Chemiflex. Performed By: #### 4 1000, 23448, 63222, 88923, 77729, 07825 ####[facility]3000 [facility].[address] URIC ACID BLOODon 07-23-2017 Urate mass conc 4.7 mg/dL Normal 2.3-6.6 The [facility] Comment on above: Performed By: #### 4 1000, 74405, 23268, 81682, 07038, 67212 ####[facility]3000 [facility].[address] CBC W/DIFFon 06-20-2017 ABS BASOPHILS 0.0 10*3/uL Normal 0.0-0.2 The [facility] Comment on above: Performed By: #### 4 1000, 31447, 41888, 08528, 46439, 79650 ####[facility]3000 [facility].[address] ABS IMM GRANS 0.0 10*3/uL Normal 0.0-0.2 [facility] Comment on above: Performed By: #### 4 1000, 99932, 22687, 34150, 76350, 66246 ####[facility]3000 [facility] [place] [address], [facility] ABS NEUTROPHILS 4.2 10*3/uL Normal 1.6-7.6 The [facility] Comment on above: Performed By: #### 4 1000, 30360, 31097, 15001, 41477, 25941 ####[facility]3000 [facility].[address] Basophils Auto #/vol (Bld) 0.2 % Normal 0.0-1.0 [facility] Comment on above: Performed By: #### 4 1000, 78575, 22536, 57672, 25704, 34022 ####[facility]3000 [facility].[address] Eosinophils Auto #/vol (Bld) 0.1 10*3/uL Normal 0.0-0.5 [facility] Comment on above: Performed By: #### 4 1000, 77417, 03465, 11547, 19107, 01957 ####[facility]3000 [facility].[address] Eosinophils/100 WBC Auto (Bld) 1.5 % Normal 0.0-6.0 [facility] Comment on above: Performed By: #### 4 1000, 43530, 42002, 01584, 53999, 29840 ####[facility]3000 [facility].[address] Erythrocyte distribution width Auto Ratio (RBC) 13.4 % Normal 11.5-15.0 [facility] Comment on above: Performed By: #### 4 1000, 89289, 25006, 05206, 39648, 40269 ####[facility]3000 [facility].[address] Hematocrit Auto Volume Fraction (Bld) 44.9 % Normal 36.0-45.0 [facility] Comment on above: Performed By: #### 4 1000, 55414, 12526, 95332, 78788, 98261 ####[facility]3000 [facility].[address] Hemoglobin mass conc (Bld) 14.9 g/dL Normal 12.0-15.0 [facility] Comment on above: Performed By: #### 4 1000, 26417, 82958, 84445, 77213, 30684 ####[facility]3000 [facility].[address] IMMATURE GRANS 0.2 % Normal 0.0-1.0 [facility] Comment on above: Performed By: #### 4 1000, 30385, 19428, 76549, 27986, 30953 ####[facility]3000 [facility].[address] Lymphocytes Auto #/vol (Bld) 1.1 10*3/uL Low 1.2-4.0 [facility] Comment on above: Performed By: #### 4 1000, 41379, 58526, 88731, 83662, 35628 ####[facility]3000 [facility].[address] Lymphocytes/100 WBC Auto (Bld) 17.4 % Low 20.0-45.0 [facility] Comment on above: Performed By: #### 4 1000, 16379, 08653, 32577, 01373, 51954 ####[facility]3000 [facility].[address] MCH Auto Entitic mass (RBC) 29.2 pg Normal 27.0-33.0 [facility] Comment on above: Performed By: #### 4 1000, 65577, 98589, 47445, 52410, 70029 ####[facility] MCHC Auto mass conc (RBC) 33.2 g/dL Normal 32.0-35.0 [facility] Comment on above: Performed By: #### 4 1000, 46619, 56194, 31467, 62377, 48344 ####[facility] MCV Auto Entitic volume (RBC) 87.9 fL Normal 82.0-98.0 [facility] Comment on above: Performed By: #### 4 1000, 95532, 61659, 35543, 25770, 34475 ####[facility] Monocytes Auto #/vol (Bld) 0.7 10*3/uL Normal 0.1-1.0 [facility] Comment on above: Performed By: #### 4 1000, 86013, 39910, 18183, 43943, 00528 ####[facility] MONOS 11.3 % Normal 5.0-12.0 [facility] Comment on above: Performed By: #### 4 1000, 91002, 97597, 14074, 91340, 75310 ####[facility] Neutrophils/100 WBC Auto (Bld) 69.4 % Normal 40.0-72.0 [facility] Comment on above: Performed By: #### 4 1000, 89159, 87106, 81669, 42098, 94483 ####[facility] Nucleated RBC/100 WBC Ratio (Bld) 0 % Normal 0-0 [facility] Comment on above: Performed By: #### 4 1000, 88126, 90338, 01880, 38965, 58789 ####[facility] PLAT CNT 198 10*3/uL Normal 150-400 [facility] Comment on above: Performed By: #### 4 1000, 02787, 71898, 13165, 85054, 07448 ####[facility] RBC Auto #/vol (Bld) 5.11 10*6/uL High 3.80-5.00 [facility] Comment on above: Performed By: #### 4 1000, 55567, 90236, 26526, 59750, 79088 ####[facility] WBC Auto #/vol (Bld) 6.0 10*3/uL Normal 4.0-10.6 [facility] Comment on above: Performed By: #### 4 1000, 00872, 50802, 54016, 03305, 74556 ####[facility] COMP METABOLIC PANELon 06-20 Albumin mass conc 4.4 g/dL Normal 3.5-5.7 [facility] Comment on above: Performed By: #### 4 1000, 70567, 39998, 66641, 24969, 62340 ####[facility] ALKALINE PHOSPH 133 IU/L High 34-104 The [facility] Comment on above: Performed By: #### 4 1000, 48580, 61101, 57641, 45862, 58851 ####[facility] ALT enzyme act/vol 16 U/L Normal 7-52 [facility] Comment on above: Performed By: #### 4 1000, 83816, 92114, 78129, 26582, 09215 ####[facility] [place] [address], [facility] AST enzyme act/vol 21 U/L Normal 13-39 [facility] Comment on above: Performed By: #### 4 1000, 59641, 58778, 65868, 78809, 34571 ####[facility] [place] [address], [facility] Bilirubin mass conc 0.8 mg/dL Normal 0.3-1.[address] [facility] Comment on above: Performed By: #### 4 1000, 22701, 56139, 37867, 80705, 22276 ####[facility] [place] [address], [facility] Calcium mass conc 10.0 mg/dL Normal 8.6-10.3 [facility] Comment on above: Performed By: #### 4 1000, 34714, 15299, 17776, 67605, 63295 ####[facility] [place] [address], [place] Chloride molar conc 106 mmol/L Normal 98-[address] [facility] Comment on above: Performed By: #### 4 1000, 42724, 99828, 92211, 39453, 69744 ####[facility] [place] [address], [place] CO2 molar conc 27 mmol/L Normal 21-31 The [facility] Comment on above: Performed By: #### 4 1000, 32893, 01116, 75192, 00150, 68647 ####[facility] [place] [address], [place] Creatinine mass conc 0.74 mg/dL Normal 0.60-1.20 [facility] Comment on above: Performed By: #### 4 1000, 15001, 38930, 15962, 62522, 14891 ####[facility] [place] [address], [facility] GFR/1.73 sq M predicted among blacks MDRD vol rate/area (S/P/Bld) mL/min/{1.73_m2} Normal >60 The [facility] Comment on above: Performed By: #### 4 1000, 06994, 22088, 85518, 21072, 31207 ####[facility] [place] [address], [facility] GFR/1.73 sq M predicted among non-blacks MDRD vol rate/area (S/P/Bld) mL/min/{1.73_m2} Normal >60 The [facility] Comment on above: Performed By: #### 4 1000, 15317, 32449, 29418, 72932, 32738 ####[facility] [place] [address], [facility] Glucose mass conc 95 mg/dL Normal 70-100 [facility] Comment on above: Performed By: #### 4 1000, 68260, 78316, 42926, 07838, 17700 ####[facility] [place] [address], [facility] Potassium molar conc 3.8 mmol/L Normal 3.5-5.1 [facility] Comment on above: Performed By: #### 4 1000, 02243, 92926, 94115, 47378, 06333 ####[facility] [place] [address], [facility] Protein mass conc 7.3 g/dL Normal 6.0-8.3 [facility] Comment on above: Performed By: #### 4 1000, 86725, 78478, 43065, 08578, 99986 ####[facility] Sodium molar conc 137 mmol/L Normal 136-145 [facility] Comment on above: Performed By: #### 4 1000, 28286, 51622, 05592, 23006, 33101 ####[facility] Urea nitrogen mass conc 16 mg/dL Normal 7-25 [facility] Comment on above: Performed By: #### 4 1000, 45337, 43732, 74141, 23083, 92237 ####[facility] DIRECT BILIon 06-20-2017 Bilirubin.direct mass conc 0.1 mg/dL Normal 0.0-0.2 [facility] Comment on above: Performed By: #### 4 1000, 07421, 28378, 23341, 89694, 69595 ####[facility] EVEROLIMUS [address] 8 EVEROLIMUS 6.7 ng/mL Normal [facility] Comment on above: Result Comment: Ther apeutic [...] the transplantcenter.Test developed and characteristics determined by [employer]. See Compliance Statement B: Datappraise/CSPerformed by [employer],[address], [facility] [place] [address] yks.Datappraise, Leonid Antonio MD - Lab. Director LIPID PROFILEon 06-20-2017 Cholesterol in HDL mass conc 45 mg/dL Normal 23-92 [facility] Comment on above: Result Comment: Slig ht variation in normal range could be due to gender and/or age.HDL CHOLESTEROL REFERENCE RANGE:20 years and older Cardiovascular Risk> or =60 mg/dL Vkukkpcos85 TO 59 mg/dL Low Risk<40 mg/dL High Risk Performed By: #### 4 1000, 44637, 82643, 36420, 88300, 82802 ####[facility]3000 [facility] [place] [address], [facility] Cholesterol in LDL mass conc 58 mg/dL Normal 0-130 [facility] Comment on above: Result Comment: LDL IS A CALCULATIONLDL IS ONLY VALID IF THE TRIG IS LESS THAN 400. Performed By: #### 4 1000, 42609, 30874, 43167, 27110, 58561 ####[facility] [place] [address], [facility] Cholesterol mass conc 126 mg/dL Normal 120-200 [facility] Comment on above: Result Comment: CHOL ESTEROL REFERENCE RANGE:20 YEARS AND OLDER CARDIOVASCULAR RISKLess than 200 mg/dl Low Ustb634 to 239 mg/dl Borderline Zllk487 mg/dl and greater High Risk Performed By: #### 4 1000, 04799, 05068, 98181, 12825, 68862 ####[facility] [facility] [place] [address], [facility] Cholesterol.total/C holesterol in HDL mass ratio 2.8 {ratio} Normal .0-4.5 [facility] Comment on above: Performed By: #### 4 1000, 55706, 41252, 54048, 15296, 20043 ####[facility] NON-HDL CHOLESTEROL 81 mg/dL Normal The [facility] Comment on above: Performed By: #### 4 1000, 51362, 81952, 48664, 31496, 85493 ####[facility] Triglyceride mass conc 113 mg/dL Normal 40-149 [facility] Comment on above: Result Comment: TRIG LYCERIDE REFERENCE RANGE:20 YEARS AND OLDER CARDIOVASCULAR RISKLESS THAN 150 mg/dl LOW [id number] TO 199 mg/dl BORDERLINE [id number] mg/dl AND GREATER HIGH RISK Performed By: #### 4 1000, 14474, 73065, 99539, 35437, 15808 ####[facility] VLDL CHOL 23 mg/dL Normal 0-40 [facility] Comment on above: Performed By: #### 4 1000, 87682, 24598, 35232, 60890, 96874 ####[facility] MAGNESIUM BLOODon 06-20-2017 Magnesium mass conc 1.9 mg/dL Normal 1.9-2.[address] [facility] Comment on above: Performed By: #### 4 1000, 83647, 04960, 29974, 61029, 81360 ####[facility] [place] [address], [facility] PHOSPHORUS BLOODon 8 Phosphate mass conc 3.1 mg/dL Normal 2.5-5.[address] [facility] Comment on above: Performed By: #### 4 1000, 76263, 53713, 40264, 74905, 10046 ####[facility] [place] [address], [facility] TACROLIMUSon 06-20-2017 Tacrolimus mass conc (Bld) 4.2 ng/mL Low 5.0-20.0 [facility] Comment on above: Result Comment: The [employer] Tacrolimus assay is a delayed one-step immunoassayfor the quantitative determination of tacrolimus in human whole bloodusing the chemiluminescent microparticle immunoassay (CMIA) technologywith flexible assay protocols, referred to as Chemiflex. Performed By: #### 4 1000, 91101, 57956, 57182, 87997, 08588 ####[facility] [facility].[address] URIC ACID BLOODon 06-20-2017 Urate mass conc 4.3 mg/dL Normal 2.3-6.6 The [facility] Comment on above: Performed By: #### 4 1000, 88113, 91692, 02587, 19851, 75624 ####[facility].[address] BK VIRUS QUANTITATION PCR BL OODon 05-27-2017 BKV QUANT PCR Not detected Normal The [facility] Comment on above: Result Comment: Meth od: BK virus was measured by quantitative polymerase chain reactionusing a TaqMan probe targeting the polyomavirus BK [employer] CENTER MANAGER-1 gene.The lower limit of quantitation of the assay is 500 copies of BK genomeper milliliter of plasma or urine, and any detectable BK DNA below thatlevel is reported as: Detected, <500 copies/ml. Serial BK virusmeasurement can be used to monitor disease activity. (Reference:Kelsie vaughanl. J CLIN MICRO 2004; 42:7190-6295).This test was developed and its performance characteristics determinedby the [facility] Molecular Diagnostics Laboratory. It has not been approvedby the US Food and Drug Administration. However, such approval is notrequired for clinical implementation, and test results have been shownto be clinically useful. This laboratory is CAP accredited and CLIAcertified to perform high complexity testing. Performed By: #### 4 1000, 45792, 54423, 11377, 20723, 05640 ####[facility].[address] LOG 10 COPIES Not detected Normal The [facility] Comment on above: Performed By: #### 4 1000, 16198, 86289, 20542, 52123, 21846 ####[facility].[address] CBC W/DIFFon 05-27-2017 ABS BASOPHILS 0.0 10*3/uL Normal 0.0-0.2 The [facility] Comment on above: Performed By: #### 4 1000, 78814, 17924, 46770, 39873, 41139 ####[facility].[address] ABS IMM GRANS 0.0 10*3/uL Normal 0.0-0.2 The [facility] Comment on above: Performed By: #### 4 1000, 23076, 88010, 18622, 34877, 10602 ####[facility].[address] ABS NEUTROPHILS 4.8 10*3/uL Normal 1.6-7.6 The [facility] Comment on above: Performed By: #### 4 1000, 42992, 81395, 67867, 33040, 58510 ####[facility].[address] Basophils Auto #/vol (Bld) 0.0 % Normal 0.0-1.0 The [facility] Comment on above: Performed By: #### 4 1000, 73590, 80403, 96407, 04390, 52149 ####[facility].[address] Eosinophils Auto #/vol (Bld) 0.1 10*3/uL Normal 0.0-0.5 The [facility] Comment on above: Performed By: #### 4 1000, 99561, 64186, 29157, 95073, 77782 ####[facility] Eosinophils/100 WBC Auto (Bld) 1.1 % Normal 0.0-6.0 The [facility] Comment on above: Performed By: #### 4 1000, 01025, 11843, 61345, 58072, 66671 ####[facility].[address] Erythrocyte distribution width Auto Ratio (RBC) 13.5 % Normal 11.5-15.0 The [facility] Comment on above: Performed By: #### 4 1000, 16357, 76051, 67222, 94000, 45639 ####[facility] Hematocrit Auto Volume Fraction (Bld) 46.1 % High 36.0-45.0 The [facility] Comment on above: Performed By: #### 4 1000, 34132, 17658, 07868, 84231, 59597 ####[facility].[address] Hemoglobin mass conc (Bld) 15.0 g/dL Normal 12.0-15.0 The [facility] Comment on above: Performed By: #### 4 1000, 25105, 43711, 26183, 52078, 92650 ####[facility] IMMATURE GRANS 0.3 % Normal 0.0-1.0 The [facility] Comment on above: Performed By: #### 4 1000, 60508, 16340, 14823, 81515, 86614 ####[facility].[address] Lymphocytes Auto #/vol (Bld) 1.0 10*3/uL Low 1.2-4.0 The [facility] Comment on above: Performed By: #### 4 1000, 25963, 02940, 71018, 34000, 74241 ####[facility] Lymphocytes/100 WBC Auto (Bld) 15.7 % Low 20.0-45.0 The [facility] Comment on above: Performed By: #### 4 1000, 61018, 72911, 66490, 64513, 56373 ####[facility] MCH Auto Entitic mass (RBC) 28.8 pg Normal 27.0-33.0 The [facility] Comment on above: Performed By: #### 4 1000, 34418, 90032, 90778, 99322, 60087 ####[facility].[address] MCHC Auto mass conc (RBC) 32.5 g/dL Normal 32.0-35.0 The [facility] Comment on above: Performed By: #### 4 1000, 77383, 90532, 27864, 86835, 37931 ####[facility] MCV Auto Entitic volume (RBC) 88.7 fL Normal 82.0-98.0 The [facility] Comment on above: Performed By: #### 4 1000, 01692, 77033, 74289, 47622, 11274 ####[facility].[address] Monocytes Auto #/vol (Bld) 0.8 10*3/uL Normal 0.1-1.0 The [facility] Comment on above: Performed By: #### 4 1000, 07421, 78788, 10151, 31613, 75645 ####[facility].[address] MONOS 11.4 % Normal 5.0-12.0 The [facility] Comment on above: Performed By: #### 4 1000, 27510, 52098, 83024, 14496, 76141 ####[facility] [place] [address], [facility] Neutrophils/100 WBC Auto (Bld) 71.5 % Normal 40.0-72.0 [facility] Comment on above: Performed By: #### 4 1000, 55520, 69088, 50567, 39840, 99219 ####[facility] Nucleated RBC/100 WBC Ratio (Bld) 0 % Normal 0-0 The [facility] Comment on above: Performed By: #### 4 1000, 99174, 61459, 31352, 51395, 19686 ####[facility] [place] [address], [facility] PLAT CNT 199 10*3/uL Normal 150-400 The [facility] Comment on above: Performed By: #### 4 1000, 49641, 30166, 61331, 43130, 10036 ####[facility] RBC Auto #/vol (Bld) 5.20 10*6/uL High 3.80-5.00 The [facility] Comment on above: Performed By: #### 4 1000, 29083, 10356, 82743, 30966, 19878 ####[facility] [place] [address], [facility] WBC Auto #/vol (Bld) 6.6 10*3/uL Normal 4.0-10.6 The [facility] Comment on above: Performed By: #### 4 1000, 78368, 49388, 43905, 13800, 09212 ####[facility] [place] [address], [facility] COMP METABOLIC PANELon 05-27 Albumin mass conc 4.6 g/dL Normal 3.5-5.7 The [facility] Comment on above: Performed By: #### 4 1000, 65678, 42417, 39382, 55106, 98816 ####[facility].[address] ALKALINE PHOSPH 105 IU/L High 34-104 [facility] Comment on above: Performed By: #### 4 1000, 33684, 42812, 11439, 14733, 87619 ####[facility].[address] ALT enzyme act/vol 20 U/L Normal 7-52 [facility] Comment on above: Performed By: #### 4 1000, 78055, 74146, 30495, 46025, 65360 ####[facility].[address] AST enzyme act/vol 23 U/L Normal 13-39 The [facility] Comment on above: Performed By: #### 4 1000, 45860, 12243, 54613, 03200, 78072 ####[facility] [place] [address], [facility] Bilirubin mass conc 0.6 mg/dL Normal 0.3-1.[address] [facility] Comment on above: Performed By: #### 4 1000, 97745, 80542, 90037, 36014, 52200 ####[facility].[address] Calcium mass conc 9.8 mg/dL Normal 8.6-10.3 The [facility] Comment on above: Performed By: #### 4 1000, 12898, 66669, 70999, 64219, 19896 ####[facility] [place] [address], [facility] Chloride molar conc 106 mmol/L Normal 98-[address] [facility] Comment on above: Performed By: #### 4 1000, 35280, 62685, 47254, 18767, 44707 ####[facility] [place] [address], [facility] CO2 molar conc 30 mmol/L Normal 21-31 The [facility] Comment on above: Performed By: #### 4 1000, 90258, 02582, 62611, 70045, 09380 ####[facility] [place] [address], [facility] Creatinine mass conc 0.80 mg/dL Normal 0.60-1.20 [facility] Comment on above: Performed By: #### 4 1000, 85899, 44123, 58714, 58505, 85242 ####[facility] [place] [address], [facility] GFR/1.73 sq M predicted among blacks MDRD vol rate/area (S/P/Bld) mL/min/{1.73_m2} Normal >60 The [facility] Comment on above: Performed By: #### 4 1000, 59661, 00694, 93453, 14816, 67181 ####[facility] [place] [address], [facility] GFR/1.73 sq M predicted among non-blacks MDRD vol rate/area (S/P/Bld) mL/min/{1.73_m2} Normal >60 The [facility] Comment on above: Performed By: #### 4 1000, 00208, 85255, 11587, 16635, 40721 ####[facility] [place] [address], [place] Glucose mass conc 90 mg/dL Normal 70-100 [facility] Comment on above: Performed By: #### 4 1000, 99667, 95255, 09485, 30870, 26774 ####[facility] [place] [address], [place] Potassium molar conc 4.0 mmol/L Normal 3.5-5.1 The [facility] Comment on above: Performed By: #### 4 1000, 01928, 69619, 71207, 51208, 07279 ####[facility] Protein mass conc 6.8 g/dL Normal 6.0-8.3 The [facility] Comment on above: Performed By: #### 4 1000, 95847, 68043, 82248, 95757, 91485 ####[facility] Sodium molar conc 138 mmol/L Normal 136-145 The [facility] Comment on above: Performed By: #### 4 1000, 62258, 95387, 07923, 07052, 96525 ####[facility] Urea nitrogen mass conc 14 mg/dL Normal 7-25 The [facility] Comment on above: Performed By: #### 4 1000, 89647, 07164, 09511, 20103, 13160 ####[facility] DIRECT BILIon 05-27-2017 Bilirubin.direct mass conc 0.1 mg/dL Normal 0.0-0.2 The [facility] Comment on above: Performed By: #### 4 1000, 85321, 10937, 87942, 39166, 96986 ####[facility] EVEROLIMUS [id number] 8 EVEROLIMUS 5.6 ng/mL Normal The [facility] Comment on above: Result Comment: Ther apeutic [...] the transplantcenter.Test developed and characteristics determined by [facility]. See Compliance Statement B: [employer]/CSPerformed by [employer],[address] [place] [id number] zau.Datapp[employer], Leonid Antonio MD - Lab. Director HEMOGLOBIN A1Con 05-27-2017 Glucose mass conc 108 mg/dL Normal 70-126 The [facility] Comment on above: Performed By: #### 4 1000, 90048, 67097, 76360, 02533, 74485 ####[facility] [place] [address], [facility] Hemoglobin A1c/Hemoglobin.tota l mass fraction (Bld) 5.4 % Normal 4.0-6.0 The [facility] Comment on above: Performed By: #### 4 1000, 08472, 19927, 40840, 84248, 01558 ####[facility] [place] [address], [place] LIPID PROFILEon 05-27-2017 Cholesterol in HDL mass conc 39 mg/dL Normal 23-92 The [facility] Comment on above: Result Comment: Slig ht variation in normal range could be due to gender and/or age.HDL CHOLESTEROL REFERENCE RANGE:20 years and older Cardiovascular Risk> or =60 mg/dL [id number] TO 59 mg/dL Low Risk<40 mg/dL High Risk Performed By: #### 4 1000, 25469, 16309, 54829, 92596, 03876 ####[facility] [place] [address], [facility] Cholesterol in LDL mass conc 52 mg/dL Normal 0-130 [facility] Comment on above: Result Comment: LDL IS A CALCULATIONLDL IS ONLY VALID IF THE TRIG IS LESS THAN 400. Performed By: #### 4 1000, 74279, 86848, 61293, 47334, 90089 ####[facility] [place] [address], [facility] Cholesterol mass conc 117 mg/dL Low 120-200 The [facility] Comment on above: Result Comment: CHOL ESTEROL REFERENCE RANGE:20 YEARS AND OLDER CARDIOVASCULAR RISKLess than 200 mg/dl Low Zgpp562 to 239 mg/dl Borderline Bwyr862 mg/dl and greater High Risk Performed By: #### 4 1000, 34758, 50583, 85467, 70076, 27186 ####[facility] [place] [address], [facility] Cholesterol.total/C holesterol in HDL mass ratio 3.0 {ratio} Normal .0-4.5 [facility] Comment on above: Performed By: #### 4 1000, 24720, 86467, 11755, 88552, 48384 ####[facility] [place] [address], [facility] NON-HDL CHOLESTEROL 78 mg/dL Normal The [facility] Comment on above: Performed By: #### 4 1000, 87825, 40205, 83002, 60470, 66500 ####[facility] [place] [address], [facility] Triglyceride mass conc 131 mg/dL Normal 40-149 The [facility] Comment on above: Result Comment: TRIG LYCERIDE REFERENCE RANGE:20 YEARS AND OLDER CARDIOVASCULAR RISKLESS THAN 150 mg/dl LOW [id number] TO 199 mg/dl BORDERLINE [id number] mg/dl AND GREATER HIGH RISK Performed By: #### 4 1000, 54371, 60887, 24617, 89645, 48137 ####[facility] VLDL CHOL 26 mg/dL Normal 0-40 [facility] Comment on above: Performed By: #### 4 1000, 99073, 60807, 09060, 94261, 46503 ####[facility] MAGNESIUM BLOODon 05-27-2017 Magnesium mass conc 2.1 mg/dL Normal 1.9-2.[address] [facility] Comment on above: Performed By: #### 4 1000, 31098, 38882, 23358, 10688, 26757 ####[facility] PHOSPHORUS BLOODon 8 Phosphate mass conc 3.5 mg/dL Normal 2.5-5.[address] [facility] Comment on above: Performed By: #### 4 1000, 21822, 30984, 23306, 07940, 88999 ####[facility]3000 [facility].[address] TACROLIMUSon 05-27-2017 Tacrolimus mass conc (Bld) 4.4 ng/mL Low 5.0-20.0 The [facility] Comment on above: Result Comment: The [employer] Tacrolimus assay is a delayed one-step immunoassayfor the quantitative determination of tacrolimus in human whole bloodusing the chemiluminescent microparticle immunoassay (CMIA) technologywith flexible assay protocols, referred to as Chemiflex. Performed By: #### 4 1000, 67753, 16168, 00889, 57167, 40634 ####[facility]3000 [facility].[address] URIC ACID BLOODon 05-27-2017 Urate mass conc 4.6 mg/dL Normal 2.3-6.6 The [facility] Comment on above: Performed By: #### 4 1000, 07680, 84441, 38635, 68976, 75772 ####[facility] CBC W/DIFFon 04-29-2017 ABS BASOPHILS 0.0 10*3/uL Normal 0.0-0.2 The [facility] Comment on above: Performed By: #### 4 1000, 19900, 74579, 75848, 29701, 62605 ####[facility] ABS IMM GRANS 0.0 10*3/uL Normal 0.0-0.2 The [facility] Comment on above: Performed By: #### 4 1000, 49578, 69025, 98162, 09424, 61784 ####[facility] ABS NEUTROPHILS 4.6 10*3/uL Normal 1.6-7.6 The [facility] Comment on above: Performed By: #### 4 1000, 99040, 83892, 36704, 52771, 95876 ####[facility] Basophils Auto #/vol (Bld) 0.3 % Normal 0.0-1.0 The [facility] Comment on above: Performed By: #### 4 1000, 27631, 78728, 08608, 88795, 22838 ####[facility]3000 [facility].[address] Eosinophils Auto #/vol (Bld) 0.1 10*3/uL Normal 0.0-0.5 The [facility] Comment on above: Performed By: #### 4 1000, 45127, 62941, 66643, 61920, 92242 ####[facility] Eosinophils/100 WBC Auto (Bld) 1.7 % Normal 0.0-6.0 The [facility] Comment on above: Performed By: #### 4 1000, 07412, 16587, 65334, 89091, 16416 ####[facility] Erythrocyte distribution width Auto Ratio (RBC) 13.7 % Normal 11.5-15.0 The [facility] Comment on above: Performed By: #### 4 1000, 09115, 42634, 71403, 65401, 13248 ####[facility] Hematocrit Auto Volume Fraction (Bld) 45.0 % Normal 36.0-45.0 The [facility] Comment on above: Performed By: #### 4 1000, 18768, 63914, 30408, 86681, 06046 ####[facility] Hemoglobin mass conc (Bld) 14.9 g/dL Normal 12.0-15.0 The [facility] Comment on above: Performed By: #### 4 1000, 52717, 84448, 48344, 97288, 23727 ####[facility] IMMATURE GRANS 0.3 % Normal 0.0-1.0 The [facility] Comment on above: Performed By: #### 4 1000, 38760, 17845, 60615, 47409, 32121 ####[facility] Lymphocytes Auto #/vol (Bld) 0.9 10*3/uL Low 1.2-4.0 The [facility] Comment on above: Performed By: #### 4 1000, 54240, 76814, 02623, 95518, 83685 ####[facility] Lymphocytes/100 WBC Auto (Bld) 14.2 % Low 20.0-45.0 The [facility] Comment on above: Performed By: #### 4 1000, 44949, 33520, 20038, 96735, 34779 ####[facility] MCH Auto Entitic mass (RBC) 29.4 pg Normal 27.0-33.0 The [facility] Comment on above: Performed By: #### 4 1000, 24039, 01667, 51092, 47569, 85973 ####[facility] MCHC Auto mass conc (RBC) 33.1 g/dL Normal 32.0-35.0 The [facility] Comment on above: Performed By: #### 4 1000, 44822, 11144, 14443, 27321, 70971 ####[facility] MCV Auto Entitic volume (RBC) 88.8 fL Normal 82.0-98.0 The [facility] Comment on above: Performed By: #### 4 1000, 49392, 02800, 23014, 44640, 85410 ####[facility] Monocytes Auto #/vol (Bld) 0.8 10*3/uL Normal 0.1-1.0 The [facility] Comment on above: Performed By: #### 4 1000, 27825, 77950, 53497, 79500, 66058 ####[facility] MONOS 12.2 % High 5.0-12.0 The [facility] Comment on above: Performed By: #### 4 1000, 45146, 10426, 45898, 55329, 32138 ####[facility] Neutrophils/100 WBC Auto (Bld) 71.3 % Normal 40.0-72.0 The [facility] Comment on above: Performed By: #### 4 1000, 77278, 58787, 62083, 02284, 35156 ####[place] [address] [facility] Nucleated RBC/100 WBC Ratio (Bld) 0 % Normal 0-0 The [facility] Comment on above: Performed By: #### 4 1000, 89254, 98453, 03640, 67540, 63629 ####[place] [address] [facility].[address] PLAT CNT 215 10*3/uL Normal 150-400 The [facility] Comment on above: Performed By: #### 4 1000, 99508, 57972, 03668, 98267, 12804 ####[address] RBC Auto #/vol (Bld) 5.07 10*6/uL High 3.80-5.00 The [facility] Comment on above: Performed By: #### 4 1000, 34993, 76190, 22963, 13798, 65417 ####[place] [address] [facility].[address] WBC Auto #/vol (Bld) 6.5 10*3/uL Normal 4.0-10.6 [facility] Comment on above: Performed By: #### 4 1000, 38898, 74868, 23357, 70317, 50372 ####[place] [address] [facility].[address] COMP METABOLIC PANELon 04-29 Albumin mass conc 4.4 g/dL Normal 3.5-5.7 [facility] Comment on above: Performed By: #### 4 1000, 24555, 49540, 63689, 59339, 14741 ####[facility] [place] [address], [facility] ALKALINE PHOSPH 114 IU/L High 34-104 The [facility] Comment on above: Performed By: #### 4 1000, 38745, 01991, 74648, 66146, 04985 ####[facility] [place] [address], [facility] ALT enzyme act/vol 15 U/L Normal 7-52 The [facility] Comment on above: Performed By: #### 4 1000, 68995, 92760, 21713, 25016, 83178 ####[facility] [place] [address], [facility] AST enzyme act/vol 19 U/L Normal 13-39 The [facility] Comment on above: Performed By: #### 4 1000, 05291, 00342, 11917, 88360, 83652 ####[facility] [place] [address], [facility] Bilirubin mass conc 0.7 mg/dL Normal 0.3-1.[address] [facility] Comment on above: Performed By: #### 4 1000, 53635, 02892, 04864, 32039, 51651 ####[facility] [place] [address], [facility] Calcium mass conc 9.6 mg/dL Normal 8.6-10.3 [facility] Comment on above: Performed By: #### 4 1000, 85558, 98471, 75073, 82013, 48867 ####[facility] [place] [address], [facility] Chloride molar conc 103 mmol/L Normal 98-[address] [facility] Comment on above: Performed By: #### 4 1000, 18152, 85902, 02793, 35457, 86281 ####[facility] [place] [address], [place] CO2 molar conc 29 mmol/L Normal 21-31 [facility] Comment on above: Performed By: #### 4 1000, 65835, 25148, 22886, 35250, 76891 ####[facility] [place] [address], [place] Creatinine mass conc 0.79 mg/dL Normal 0.60-1.20 [facility] Comment on above: Performed By: #### 4 1000, 49507, 64345, 52917, 26988, 75091 ####[facility] [place] [address], [facility] GFR/1.73 sq M predicted among blacks MDRD vol rate/area (S/P/Bld) mL/min/{1.73_m2} Normal >60 The [facility] Comment on above: Performed By: #### 4 1000, 39574, 43271, 28733, 82911, 04016 ####[facility] [place] [address], [facility] GFR/1.73 sq M predicted among non-blacks MDRD vol rate/area (S/P/Bld) mL/min/{1.73_m2} Normal >60 The [facility] Comment on above: Performed By: #### 4 1000, 66349, 84300, 78962, 92919, 53618 ####[facility] [place] [address], [place] Glucose mass conc 90 mg/dL Normal 70-100 [facility] Comment on above: Performed By: #### 4 1000, 81553, 20715, 18954, 36063, 85176 ####[facility] [place] [address], [place] Potassium molar conc 3.8 mmol/L Normal 3.5-5.1 [facility] Comment on above: Performed By: #### 4 1000, 65433, 12901, 36591, 39302, 38269 ####[facility] Protein mass conc 7.2 g/dL Normal 6.0-8.3 [facility] Comment on above: Performed By: #### 4 1000, 79751, 04493, 03887, 89211, 98446 ####[facility] Sodium molar conc 140 mmol/L Normal 136-145 [facility] Comment on above: Performed By: #### 4 1000, 41675, 46722, 81595, 52597, 23999 ####[facility] Urea nitrogen mass conc 15 mg/dL Normal 7-25 [facility] Comment on above: Performed By: #### 4 1000, 46540, 33570, 25321, 59877, 79622 ####[facility] DIRECT BILIon 04-29-2017 Bilirubin.direct mass conc 0.1 mg/dL Normal 0.0-0.2 [facility] Comment on above: Order Comment: Liver Battery conflicts with Comprehensive Metabolic Panel. Liver Battery canceled and Direct Bilirubin added. Performed By: #### 4 1000, 17832, 89116, 06146, 15813, 62264 ####[facility] EVEROLIMUS 67534wg 8 EVEROLIMUS 5.4 ng/mL Normal [facility] Comment on above: Result Comment: Ther apeutic [...] the transplantcenter.Test developed and characteristics determined by [facility]. See Compliance Statement B: Datappraise/CSPerformed by [employer],[address] [place] [id number] ivc.Datappraise, Leonid Antonio MD - Lab. Director LIPID PROFILEon 04-29-2017 Cholesterol in HDL mass conc 49 mg/dL Normal 23-92 [facility] Comment on above: Result Comment: Slig ht variation in normal range could be due to gender and/or age.HDL CHOLESTEROL REFERENCE RANGE:20 years and older Cardiovascular Risk> or =60 mg/dL Wizxmfytd08 TO 59 mg/dL Low Risk<40 mg/dL High Risk Performed By: #### 4 1000, 71603, 27972, 22591, 12467, 85747 ####[facility]3000 [facility].[address] Cholesterol in LDL mass conc 52 mg/dL Normal 0-130 [facility] Comment on above: Result Comment: LDL IS A CALCULATIONLDL IS ONLY VALID IF THE TRIG IS LESS THAN 400. Performed By: #### 4 1000, 11921, 52976, 35910, 75075, 36049 ####[facility] [place] [address], [facility] Cholesterol mass conc 122 mg/dL Normal 120-200 [facility] Comment on above: Result Comment: CHOL ESTEROL REFERENCE RANGE:20 YEARS AND OLDER CARDIOVASCULAR RISKLess than 200 mg/dl Low Ilak165 to 239 mg/dl Borderline Ldaf885 mg/dl and greater High Risk Performed By: #### 4 1000, 45116, 88516, 31419, 16801, 92824 ####[facility]3000 [facility].[address] Cholesterol.total/C holesterol in HDL mass ratio 2.5 {ratio} Normal .0-4.5 [facility] Comment on above: Performed By: #### 4 1000, 74710, 84463, 73935, 46110, 15801 ####[facility]3000 [facility].[address] NON-HDL CHOLESTEROL 73 mg/dL Normal [facility] Comment on above: Performed By: #### 4 1000, 58073, 10162, 09841, 45720, 08063 ####[facility]3000 [facility].[address] Triglyceride mass conc 106 mg/dL Normal 40-149 [facility] Comment on above: Result Comment: TRIG LYCERIDE REFERENCE RANGE:20 YEARS AND OLDER CARDIOVASCULAR RISKLESS THAN 150 mg/dl LOW TWAC238 TO 199 mg/dl BORDERLINE OSAB120 mg/dl AND GREATER HIGH RISK Performed By: #### 4 1000, 71554, 35013, 42184, 87801, 85294 ####[facility]3000 [facility].[address] VLDL CHOL 21 mg/dL Normal 0-40 [facility] Comment on above: Performed By: #### 4 1000, 39858, 37583, 45906, 96189, 32264 ####[facility]3000 [facility].[address] MAGNESIUM BLOODon 04-29-2017 Magnesium mass conc 2.1 mg/dL Normal 1.9-2.[address] [facility] Comment on above: Performed By: #### 4 1000, 06414, 14559, 55794, 37157, 24153 ####[facility]3000 [facility] [place] [address], [facility] PHOSPHORUS BLOODon 8 Phosphate mass conc 3.3 mg/dL Normal 2.5-5.0 [facility] Comment on above: Performed By: #### 4 1000, 11400, 80748, 87095, 25173, 07782 ####[facility]3000 [facility].[address] TACROLIMUSon 04-29-2017 Tacrolimus mass conc (Bld) 4.6 ng/mL Low 5.0-20.0 [facility] Comment on above: Result Comment: The [employer] Tacrolimus assay is a delayed one-step immunoassayfor the quantitative determination of tacrolimus in human whole bloodusing the chemiluminescent microparticle immunoassay (CMIA) technologywith flexible assay protocols, referred to as Chemiflex. Performed By: #### 4 1000, 45733, 99350, 48643, 20326, 51679 ####[facility]3000 [facility].[address] URIC ACID BLOODon 04-29-2017 Urate mass conc 4.6 mg/dL Normal 2.3-6.6 [facility] Comment on above: Performed By: #### 4 1000, 12951, 83651, 09516, 69947, 61971 ####[place] [address] [facility].[address] CBC W/DIFFon 03-27-2017 Basophils Auto #/vol (Bld) 0.2 % Normal 0.0-2.0 [facility] Comment on above: Performed By: #### 4 1000, 24240, 27258, 81095, 37089, 08206 ####[facility]3000 [facility].[address] Eosinophils/100 WBC Auto (Bld) 1.8 % Normal 0.0-5.0 [facility] Comment on above: Performed By: #### 4 1000, 34506, 32536, 13972, 51725, 71132 ####[facility] Erythrocyte distribution width Auto Ratio (RBC) 13.6 % Normal 11.5-16.9 [facility] Comment on above: Performed By: #### 4 1000, 69752, 73493, 08276, 68159, 98223 ####[facility] [facility] Hematocrit Auto Volume Fraction (Bld) 47.6 % Normal 36.0-48.0 [facility] Comment on above: Performed By: #### 4 1000, 03445, 04569, 81783, 55135, 90234 ####[facility] [facility] Hemoglobin mass conc (Bld) 15.8 g/dL High 12.0-15.0 [facility] Comment on above: Performed By: #### 4 1000, 23333, 78418, 32454, 30596, 88984 ####[facility] [facility] Lymphocytes/100 WBC Auto (Bld) 14.5 % Low 20.0-40.0 [facility] Comment on above: Performed By: #### 4 1000, 31780, 07981, 62519, 13502, 26602 ####[facility] MCH Auto Entitic mass (RBC) 29.0 pg Normal 24.0-32.0 [facility] Comment on above: Performed By: #### 4 1000, 88959, 08780, 49402, 55270, 03279 ####[facility] MCHC Auto mass conc (RBC) 33.3 g/dL Normal 32.0-36.0 [facility] Comment on above: Performed By: #### 4 1000, 38060, 58350, 62818, 48459, 67238 ####[facility] MCV Auto Entitic volume (RBC) 87.4 fL Normal 80.0-100.0 [facility] Comment on above: Performed By: #### 4 1000, 71253, 00970, 68934, 90762, 01937 ####[facility] METHOD Normal RBC Morphology Normal [facility] Comment on above: Performed By: #### 4 1000, 91978, 26635, 69634, 03462, 98495 ####[facility] MONOS 9.6 % High 2-8 [facility] Comment on above: Performed By: #### 4 1000, 18038, 38100, 53235, 85011, 63425 ####[facility] Neutrophils/100 WBC Auto (Bld) 73.9 % High 50-70 [facility] Comment on above: Performed By: #### 4 1000, 51011, 66592, 99597, 70237, 15676 ####[facility] PLAT CNT 228 Thou/mm3 Normal 100-400 [facility] Comment on above: Performed By: #### 4 1000, 54070, 76080, 50723, 53825, 90145 ####[facility] RBC Auto #/vol (Bld) 5.45 mill/mm3 Normal 3.50-5.50 [facility] Comment on above: Performed By: #### 4 1000, 51756, 91455, 18999, 36590, 62071 ####[facility] WBC Auto #/vol (Bld) 6.5 Thou/mm3 Normal 4.0-10.0 [facility] Comment on above: Performed By: #### 4 1000, 35731, 49435, 74733, 72726, 28474 ####[facility] COMP METABOLIC PANELon 03-27 Albumin mass conc 4.7 g/dL Normal 3.5-5.7 [facility] Comment on above: Performed By: #### 4 1000, 22413, 59453, 82103, 56611, 89040 ####[facility] ALKALINE PHOSPH 99 IU/L Normal 34-104 [facility] Comment on above: Performed By: #### 4 1000, 20200, 09435, 05402, 70829, 35341 ####[facility] ALT enzyme act/vol 19 U/L Normal 7-52 [facility] Comment on above: Performed By: #### 4 1000, 99978, 71274, 94924, 90966, 01324 ####[facility] AST enzyme act/vol 21 U/L Normal 13-39 [facility] Comment on above: Performed By: #### 4 1000, 35736, 31668, 63234, 31415, 75361 ####[facility] Bilirubin mass conc 0.6 mg/dL Normal 0.3-1.0 [facility] Comment on above: Performed By: #### 4 1000, 42254, 43685, 48642, 65699, 57608 ####[facility] [place] [address], [place] Calcium mass conc 10.2 mg/dL Normal 8.6-10.3 [facility] Comment on above: Performed By: #### 4 1000, 22507, 12069, 71142, 52667, 71501 ####[facility] [place] [address], [place] Chloride molar conc 104 mmol/L Normal 98-[address] [facility] Comment on above: Performed By: #### 4 1000, 58417, 35224, 63255, 33545, 53162 ####[facility] [place] [address], [place] CO2 molar conc 28 mmol/L Normal 21-31 [facility] Comment on above: Performed By: #### 4 1000, 89276, 18225, 19322, 51170, 14779 ####[facility] [place] [address], [place] Creatinine mass conc 0.78 mg/dL Normal 0.60-1.20 [facility] Comment on above: Performed By: #### 4 1000, 10403, 53650, 04430, 74316, 31047 ####[facility] [place] [address], [place] GFR/1.73 sq M predicted among blacks MDRD vol rate/area (S/P/Bld) mL/min/{1.73_m2} Normal >60 [facility] Comment on above: Performed By: #### 4 1000, 28149, 91277, 80688, 91201, 12358 ####[facility] [place] [address], [place] GFR/1.73 sq M predicted among non-blacks MDRD vol rate/area (S/P/Bld) mL/min/{1.73_m2} Normal >60 [facility] Comment on above: Performed By: #### 4 1000, 44309, 14357, 09281, 36013, 33601 ####[facility] [place] [address], [facility] Glucose mass conc 87 mg/dL Normal 70-100 [facility] Comment on above: Performed By: #### 4 1000, 30401, 14696, 72887, 72832, 02045 ####[facility] [place] [address], [facility] Potassium molar conc 4.1 mmol/L Normal 3.5-5.1 [facility] Comment on above: Performed By: #### 4 1000, 59411, 05127, 65276, 45852, 94984 ####[facility] [place] [address], [facility] Protein mass conc 7.8 g/dL Normal 6.0-8.3 [facility] Comment on above: Performed By: #### 4 1000, 39265, 15504, 97380, 16862, 40523 ####[facility] [place] [address], [facility] Sodium molar conc 139 mmol/L Normal 136-145 [facility] Comment on above: Performed By: #### 4 1000, 16866, 76088, 87821, 95661, 71022 ####[facility] [place] [address], [place] Urea nitrogen mass conc 19 mg/dL Normal 7-25 [facility] Comment on above: Performed By: #### 4 1000, 57066, 02132, 76965, 70517, 87458 ####[facility] [place] [address], [place] DIRECT BILIon 03-27-2017 Bilirubin.direct mass conc 0.1 mg/dL Normal 0.0-0.2 [facility] Comment on above: Performed By: #### 4 1000, 86204, 25897, 37629, 06960, 00426 ####[facility] EVEROLIMUS 28983sp 7 EVEROLIMUS 5.3 ng/mL Normal [facility] Comment on above: Result Comment: Ther apeutic [...] the transplantcenter.Test developed and characteristics determined by [facility]. See Compliance Statement B: Datapp[employer]/CSPerformed by [employer],[address] [place] [id number] ghy.[employer], Leonid Antonio MD - Lab. Director LIPID PROFILEon 03-27-2017 Cholesterol in HDL mass conc 50 mg/dL Normal 23-92 [facility] Comment on above: Result Comment: Slig ht variation in normal range could be due to gender and/or age.HDL CHOLESTEROL REFERENCE RANGE:20 years and older Cardiovascular Risk> or =60 mg/dL Uknfrcsnq23 TO 59 mg/dL Low Risk<40 mg/dL High Risk Performed By: #### 4 1000, 15066, 61320, 30222, 00482, 55635 ####[facility] [place] [address], [facility] Cholesterol in LDL mass conc 66 mg/dL Normal 0-130 [facility] Comment on above: Result Comment: LDL IS A CALCULATIONLDL IS ONLY VALID IF THE TRIG IS LESS THAN 400. Performed By: #### 4 1000, 83784, 57734, 14801, 26130, 76331 ####[facility] [place] [address], [facility] Cholesterol mass conc 147 mg/dL Normal 120-200 [facility] Comment on above: Result Comment: CHOL ESTEROL REFERENCE RANGE:20 YEARS AND OLDER CARDIOVASCULAR RISKLess than 200 mg/dl Low Fcdv550 to 239 mg/dl Borderline Dblh548 mg/dl and greater High Risk Performed By: #### 4 1000, 78333, 36137, 96234, 41758, 57643 ####[facility]3000 [facility] [place] [address], [facility] Cholesterol.total/C holesterol in HDL mass ratio 2.9 {ratio} Normal .0-4.5 [facility] Comment on above: Performed By: #### 4 1000, 67168, 57474, 01688, 38497, 50478 ####[facility] [place] [address], [facility] NON-HDL CHOLESTEROL 97 mg/dL Normal The [facility] Comment on above: Performed By: #### 4 1000, 08027, 20760, 06338, 27624, 66359 ####[facility] [place] [address], [facility] Triglyceride mass conc 157 mg/dL High 40-149 [facility] Comment on above: Result Comment: TRIG LYCERIDE REFERENCE RANGE:20 YEARS AND OLDER CARDIOVASCULAR RISKLESS THAN 150 mg/dl LOW DVSR361 TO 199 mg/dl BORDERLINE SYWP927 mg/dl AND GREATER HIGH RISK Performed By: #### 4 1000, 29232, 88294, 23359, 81550, 54255 ####[facility] VLDL CHOL 31 mg/dL Normal 0-40 [facility] Comment on above: Performed By: #### 4 1000, 51123, 54975, 27760, 22003, 81664 ####[facility] [place] [address], [facility] MAGNESIUM BLOODon 03-27-2017 Magnesium mass conc 1.9 mg/dL Normal 1.9-2.[address] [facility] Comment on above: Performed By: #### 4 1000, 24064, 09123, 06203, 91368, 40382 ####[facility] [place] [address], [facility] PHOSPHORUS BLOODon 7 Phosphate mass conc 3.4 mg/dL Normal 2.5-5.[address] [facility] Comment on above: Performed By: #### 4 1000, 56225, 35237, 76663, 13168, 59541 ####[facility]3000 [facility].[address] TACROLIMUSon 03-27-2017 Tacrolimus mass conc (Bld) 3.7 ng/mL Low 5.0-20.0 [facility] Comment on above: Result Comment: The [employer] Tacrolimus assay is a delayed one-step immunoassayfor the quantitative determination of tacrolimus in human whole bloodusing the chemiluminescent microparticle immunoassay (CMIA) technologywith flexible assay protocols, referred to as Chemiflex. Performed By: #### 4 1000, 89495, 02801, 51885, 78087, 02937 ####[facility] [place] [address], [facility] URIC ACID BLOODon 03-27-2017 Urate mass conc 4.1 mg/dL Normal 2.3-6.6 The [facility] Comment on above: Performed By: #### 4 1000, 75844, 74584, 56691, 35073, 55530 ####[facility] BK VIRUS QUANTITATION PCR BL OODon 02-26-2017 BKV QUANT PCR Not detected Normal The [facility] Comment on above: Result Comment: Meth od: BK virus was measured by quantitative polymerase chain reactionusing a TaqMan probe targeting the polyomavirus BK [employer]-1 gene.The lower limit of quantitation of the assay is 500 copies of BK genomeper milliliter of plasma or urine, and any detectable BK DNA below thatlevel is reported as: Detected, <500 copies/ml. Serial BK virusmeasurement can be used to monitor disease activity. (Reference:Kelsie vaughanl. J CLIN MICRO 2004; 42:3190-2045).This test was developed and its performance characteristics determinedby the [facility] Molecular Diagnostics Laboratory. It has not been approvedby the [place] Food and Drug Administration. However, such approval is notrequired for clinical implementation, and test results have been shownto be clinically useful. This laboratory is CAP accredited and CLIAcertified to perform high complexity testing. Performed By: #### 4 1000, 21221, 05925, 53257, 13024, 17585 ####[facility]3000 [facility].[address] LOG 10 COPIES Not detected Normal The [facility] Comment on above: Performed By: #### 4 1000, 82026, 55254, 76425, 22021, 03167 ####[place] [address] CBC W/DIFFon 02-26-2017 Basophils Auto #/vol (Bld) 0.3 % Normal 0.0-2.0 [facility] Comment on above: Performed By: #### 5 0103 ####[address] Eosinophils/100 WBC Auto (Bld) 2.2 % Normal 0.0-5.0 [facility] Comment on above: Performed By: #### 5 0103 ####[facility] Erythrocyte distribution width Auto Ratio (RBC) 13.8 % Normal 11.5-16.9 [facility] Comment on above: Performed By: #### 3 ####[facility] Hematocrit Auto Volume Fraction (Bld) 44.9 % Normal 36.0-48.0 [facility] Comment on above: Performed By: #### 102 ####[address] Hemoglobin mass conc (Bld) 15.0 g/dL Normal 12.0-15.0 [facility] Comment on above: Performed By: #### 102 ####[address] Lymphocytes/100 WBC Auto (Bld) 18.9 % Low 20.0-40.0 [facility] Comment on above: Performed By: #### 3 ####[address] MCH Auto Entitic mass (RBC) 28.9 pg Normal 24.0-32.0 [facility] Comment on above: Performed By: #### 3 ####[place] [address] MCHC Auto mass conc (RBC) 33.4 g/dL Normal 32.0-36.0 [facility] Comment on above: Performed By: #### 5 3 ####[address] MCV Auto Entitic volume (RBC) 86.6 fL Normal 80.0-100.0 [facility] Comment on above: Performed By: #### 5 3 ####[address] [place] [address], [facility] METHOD Normal RBC Morphology Normal [facility] Comment on above: Performed By: #### 5 0103 ####[facility]3000 [facility] [place] [address], [facility] MONOS 11.7 % High 2-8 [facility] Comment on above: Performed By: #### 5 0103 ####[facility]3000 [facility] [place] [address], [facility] Neutrophils/100 WBC Auto (Bld) 66.9 % Normal 50-70 [facility] Comment on above: Performed By: #### 5 0103 ####[place] [address] [facility] [place] [address], [facility] PLAT CNT 230 Thou/mm3 Normal 100-400 The [facility] Comment on above: Performed By: #### 5 0103 ####[facility]3000 [facility] [place] [address], [facility] RBC Auto #/vol (Bld) 5.18 mill/mm3 Normal 3.50-5.50 [facility] Comment on above: Performed By: #### 5 0103 ####[facility]3000 [facility].[address] WBC Auto #/vol (Bld) 5.8 Thou/mm3 Normal 4.0-10.0 [facility] Comment on above: Performed By: #### 5 3 ####[facility]3000 [facility].[address] COMP METABOLIC PANELon 02-26 Albumin mass conc 4.7 g/dL Normal 3.5-5.7 [facility] Comment on above: Performed By: #### 4 1000, 74517, 26443, 84777, 40412, 27056 ####[facility]3000 [facility].[address] ALKALINE PHOSPH 115 IU/L High 34-104 The [facility] Comment on above: Performed By: #### 4 1000, 72454, 60369, 34995, 34736, 48033 ####[facility] [id number], [facility] ALT enzyme act/vol 18 U/L Normal 7-52 The [facility] Comment on above: Performed By: #### 4 1000, 33996, 51351, 20482, 85986, 41790 ####[facility] [place] [address], [facility] AST enzyme act/vol 22 U/L Normal 13-39 [facility] Comment on above: Performed By: #### 4 1000, 79356, 89949, 27806, 22049, 81730 ####[facility] [place] [address], [facility] Bilirubin mass conc 0.6 mg/dL Normal 0.3-1.[address] [facility] Comment on above: Performed By: #### 4 1000, 35314, 83692, 12171, 75026, 64948 ####[facility] [place] [address], [facility] Calcium mass conc 9.8 mg/dL Normal 8.6-10.3 [facility] Comment on above: Performed By: #### 4 1000, 43512, 23427, 78320, 82286, 50407 ####[facility] [place] [address], [place] Chloride molar conc 103 mmol/L Normal 98-[address] [facility] Comment on above: Performed By: #### 4 1000, 58921, 04290, 17982, 46254, 64537 ####[facility] [place] [address], [place] CO2 molar conc 29 mmol/L Normal 21-31 The [facility] Comment on above: Performed By: #### 4 1000, 20110, 76189, 88186, 48635, 25384 ####[facility] [facility] [place] [address], [facility] Creatinine mass conc 0.78 mg/dL Normal 0.60-1.20 [facility] Comment on above: Performed By: #### 4 1000, 82323, 64852, 95963, 86828, 52729 ####[facility] [place] [address], [facility] GFR/1.73 sq M predicted among blacks MDRD vol rate/area (S/P/Bld) mL/min/{1.73_m2} Normal >60 [facility] Comment on above: Performed By: #### 4 1000, 88234, 32700, 91374, 24651, 88978 ####[facility] [place] [address], [facility] GFR/1.73 sq M predicted among non-blacks MDRD vol rate/area (S/P/Bld) mL/min/{1.73_m2} Normal >60 [facility] Comment on above: Performed By: #### 4 1000, 27035, 17697, 68378, 95992, 78080 ####[facility] [place] [address], [facility] Glucose mass conc 94 mg/dL Normal 70-100 [facility] Comment on above: Performed By: #### 4 1000, 19435, 84964, 49164, 74567, 44213 ####[facility] [place] [address], [facility] Potassium molar conc 3.8 mmol/L Normal 3.5-5.1 [facility] Comment on above: Performed By: #### 4 1000, 27982, 25365, 24727, 74408, 97556 ####[facility] Protein mass conc 7.4 g/dL Normal 6.0-8.3 [facility] Comment on above: Performed By: #### 4 1000, 14255, 18726, 64736, 57500, 71987 ####[facility] Sodium molar conc 136 mmol/L Normal 136-145 [facility] Comment on above: Performed By: #### 4 1000, 60160, 56530, 20695, 14501, 23361 ####[facility] Urea nitrogen mass conc 19 mg/dL Normal 7-25 [facility] Comment on above: Performed By: #### 4 1000, 12732, 55677, 44837, 03139, 60095 ####[facility] DIRECT BILIon 02-26-2017 Bilirubin.direct mass conc 0.1 mg/dL Normal 0.0-0.2 [facility] Comment on above: Performed By: #### 4 1000, 52349, 28047, 78977, 47081, 83752 ####[facility] EVEROLIMUS 46643am 7 EVEROLIMUS 5.9 ng/mL Normal [facility] Comment on above: Result Comment: Ther apeutic [...] the transplantcenter.Test developed and characteristics determined by [employer]. See Compliance Statement B: Datappraise/CSPerformed by [employer],[address] [place] [id number] laf.Datappraise, Leonid Antonio MD - Lab. Director HEMOGLOBIN A1Con 02-26-2017 Glucose mass conc 108 mg/dL Normal 70-126 [facility] Comment on above: Performed By: #### 4 9223, 60393 ####[facility] Hemoglobin A1c/Hemoglobin.tota l mass fraction (Bld) 5.4 % Normal 4.0-6.0 [facility] Comment on above: Performed By: #### 4 6713, 77269 ####[facility]3000 [facility].[address] LIPID PROFILEon 02-26-2017 Cholesterol in HDL mass conc 54 mg/dL Normal 23-92 [facility] Comment on above: Result Comment: Slig ht variation in normal range could be due to gender and/or age.HDL CHOLESTEROL REFERENCE RANGE:20 years and older Cardiovascular Risk> or =60 mg/dL [id number] TO 59 mg/dL Low Risk<40 mg/dL High Risk Performed By: #### 4 1000, 14618, 42969, 47731, 79633, 47544 ####[facility] [facility] [place] [address], [facility] Cholesterol in LDL mass conc 70 mg/dL Normal 0-130 [facility] Comment on above: Result Comment: LDL IS A CALCULATIONLDL IS ONLY VALID IF THE TRIG IS LESS THAN 400. Performed By: #### 4 1000, 18338, 88054, 40336, 29773, 00283 ####[facility] [place] [address], [facility] Cholesterol mass conc 144 mg/dL Normal 120-200 [facility] Comment on above: Result Comment: CHOL ESTEROL REFERENCE RANGE:20 YEARS AND OLDER CARDIOVASCULAR RISKLess than 200 mg/dl Low Gzft076 to 239 mg/dl Borderline Qozu788 mg/dl and greater High Risk Performed By: #### 4 1000, 19361, 07000, 20215, 48300, 42529 ####[facility] [place] [address], [facility] Cholesterol.total/C holesterol in HDL mass ratio 2.7 {ratio} Normal .0-4.5 [facility] Comment on above: Performed By: #### 4 1000, 95234, 17225, 44121, 91344, 59345 ####[facility] NON-HDL CHOLESTEROL 90 mg/dL Normal [facility] Comment on above: Performed By: #### 4 1000, 09621, 65479, 72355, 02666, 06199 ####[facility] [place] [address], [facility] Triglyceride mass conc 101 mg/dL Normal 40-149 [facility] Comment on above: Result Comment: TRIG LYCERIDE REFERENCE RANGE:20 YEARS AND OLDER CARDIOVASCULAR RISKLESS THAN 150 mg/dl LOW KYDU147 TO 199 mg/dl BORDERLINE SCCW113 mg/dl AND GREATER HIGH RISK Performed By: #### 4 1000, 07326, 49796, 57665, 94140, 66079 ####[facility] [place] [address], [facility] VLDL CHOL 20 mg/dL Normal 0-40 [facility] Comment on above: Performed By: #### 4 1000, 05258, 26219, 07221, 62567, 02807 ####[facility]3000 [facility].[address] MAGNESIUM BLOODon 02-26-2017 Magnesium mass conc 1.9 mg/dL Normal 1.9-2.[address] [facility] Comment on above: Performed By: #### 4 1000, 79473, 47121, 05745, 44102, 07596 ####[facility] PHOSPHORUS BLOODon 7 Phosphate mass conc 4.1 mg/dL Normal 2.5-5.0 [facility] Comment on above: Performed By: #### 4 1000, 08871, 32501, 66122, 75450, 09384 ####[facility] TACROLIMUSon 02-26-2017 Tacrolimus mass conc (Bld) 4.2 ng/mL Low 5.0-20.0 [facility] Comment on above: Result Comment: The [employer] Tacrolimus assay is a delayed one-step immunoassayfor the quantitative determination of tacrolimus in human whole bloodusing the chemiluminescent microparticle immunoassay (CMIA) technologywith flexible assay protocols, referred to as Chemiflex. Performed By: #### 4 6447, 93982 ####[facility] URIC ACID BLOODon 02-26-2017 Urate mass conc 4.3 mg/dL Normal 2.3-6.6 [facility] Comment on above: Performed By: #### 4 1000, 06966, 29318, 47733, 55271, 04705 ####[facility] Vital Signs Date Time Vital Sign Value Performing Clinician Facility 03-27-2023 11:30-0500 Body height 152.4 cm Cathy Bella Other [facility] Other 03-27-2023 11:30-0500 Body mass index (BMI) [Ratio] 25.39 kg/m2 Cathy Bella Other [facility] Other 03-27-2023 11:30-0500 Body temperature 97.5 [degF] Cathy Shayne Other [facility] Other 03-27-2023 11:30-0500 Body weight 58.97 kg Cathy Bella Other [facility] Other 03-27-2023 11:30-0500 Respiratory rate 18 /min Cathy Bella Other [facility] Other 03-27-2023 11:30-0500 SaO2% (BldA) [Mass fraction] 96 % Cathy Bella Other [facility] Other 09-21-2022 09:00-0400 Body height 152.4 cm Martha Paola Other [facility] Other 09-21-2022 09:00-0400 Body mass index (BMI) [Ratio] 22.46 kg/m2 Martha Paola Other [facility] Other 09-21-2022 09:00-0400 Body temperature 97.6 [degF] Martha Paola Other [facility] Other 09-21-2022 09:00-0400 Body weight 52.16 kg Martha Paola Other [facility] Other 09-21-2022 09:00-0400 Diastolic blood pressure 70 mm[Hg] Martha Guevara Other [facility] Other 09-21-2022 09:00-0400 Respiratory rate 18 /min Martha Guevara Other [facility] Other 09-21-2022 09:00-0400 SaO2% (BldA) [Mass fraction] 96 % Martha Guevara Other [facility] Other 09-21-2022 09:00-0400 Systolic blood pressure 107 mm[Hg] Martha Guevara Other [facility] Other 01-12-2022 13:55-0400 Body height 152.4 cm Cathy Bella Other [facility] Other 01-12-2022 13:55-0400 Body mass index (BMI) [Ratio] 19.53 kg/m2 Cathy Bella Other [facility] Other 01-12-2022 13:55-0400 Body temperature 96.9 [degF] Cathy Bella Other [facility] Other 01-12-2022 13:55-0400 Body weight 45.36 kg Cathy Bella Other [facility] Other 01-12-2022 13:55-0400 Respiratory rate 18 /min Cathy Bella Other [facility] Other 01-12-2022 13:55-0400 SaO2% (BldA) [Mass fraction] 97 % Cathy Bella Other [facility] Other 12-28-2021 10:20-0400 Body height 152.4 cm Martha Smithmond Other [facility] Other 12-28-2021 10:20-0400 Body mass index (BMI) [Ratio] 21.48 kg/m2 Martha Guevara Other [facility] Other 12-28-2021 10:20-0400 Body temperature 98 [degF] Martha Smithmond Other [facility] Other 12-28-2021 10:20-0400 Body weight 49.9 kg Martha Guevara Other [facility] Other 12-28-2021 10:20-0400 Respiratory rate 18 /min Martha Guevara Other [facility] Other 12-28-2021 10:20-0400 SaO2% (BldA) [Mass fraction] 97 % Martha Guevara Other [facility] Other 12-25-2021 10:05-0400 Body height 152.4 cm Cathy Bella Other [facility] Other 12-25-2021 10:05-0400 Body mass index (BMI) [Ratio] 21.48 kg/m2 Cathy Bella Other [facility] Other 12-25-2021 10:05-0400 Body temperature 96 [degF] Cathy Bella Other [facility] Other 12-25-2021 10:05-0400 Body weight 49.9 kg Cathy Bella Other [facility] Other 12-25-2021 10:05-0400 Respiratory rate 18 /min Cathy Bella Other [facility] Other 12-25-2021 10:05-0400 SaO2% (BldA) [Mass fraction] 97 % Cathy Bella Other [facility] Other 10-27-2021 12:35-0400 Body height 152.4 cm Cathy Bella Other [facility] Other 10-27-2021 12:35-0400 Body mass index (BMI) [Ratio] 22.85 kg/m2 Cathy Bella Other [facility] Other 10-27-2021 12:35-0400 Body weight 53.07 kg Cathy Bella Other [facility] Other 10-27-2021 12:35-0400 Diastolic blood pressure 87 mm[Hg] Cathy Bella Other [facility] Other 10-27-2021 12:35-0400 SaO2% (BldA) [Mass fraction] 98 % Cathy Bella Other [facility] Other 10-27-2021 12:35-0400 Systolic blood pressure 130 mm[Hg] Cathy Bella Other [facility] Other 08-14-2021 10:40-0400 Body height 152.4 cm Martha Paola Other [facility] Other 08-14-2021 10:40-0400 Body mass index (BMI) [Ratio] 22.46 kg/m2 Martha Paola Other [facility] Other 08-14-2021 10:40-0400 Body temperature 96.7 [degF] Martha Paola Other [facility] Other 08-14-2021 10:40-0400 Body weight 52.16 kg Martha Paola Other [facility] Other 08-14-2021 10:40-0400 Diastolic blood pressure 68 mm[Hg] Martha Paola Other [facility] Other 08-14-2021 10:40-0400 Respiratory rate 20 /min Martha Paola Other [facility] Other 08-14-2021 10:40-0400 SaO2% (BldA) [Mass fraction] 98 % Martha Paola Other [facility] Other 08-14-2021 10:40-0400 Systolic blood pressure 144 mm[Hg] Martha Paola Other [facility] Other Encounters Encounter Date Encounter Type Care Provider Facility Start: 04-02-2023 End: 04-02-2023 ambulatory RAMON CARROLL Not Available Start: 03-27-2023 End: 03-27-2023 ambulatory Cathy Bella Other [facility] Other Start: 03-27-2023 Office outpatient visit 25 minutes Cathy Bella [facility] Start: 03-17-2023 End: 03-17-2023 ambulatory VIRGIL [facility] Start: 03-06-2023 End: 03-06-2023 ambulatory JOHN PADILLA Not Available Start: 02-12-2023 End: 02-12-2023 ambulatory JOHN PADILLA Not Available Start: 09-21-2022 End: 09-21-2022 ambulatory Martha Gueavra Other [facility] Other Start: 09-21-2022 Office outpatient visit 15 minutes Marthajd Guevara [facility] Start: 09-17-2022 End: 09-17-2022 ambulatory VIRGIL HAYNES [facility] Start: 08-12-2022 End: 08-13-[address] DOE [...] 01-12-2022 End: 01-12-2022 ambulatory Cathy Bella Other [facility] Other Start: 01-12-2022 Office outpatient visit 15 minutes Cathy Bella [facility] Start: 01-07-2022 End: 01-07-2022 ambulatory ISATU GUAMAN . Facility:[facility] Start: 01-03-2022 End: 01-04-[address] VIRGIL SWIFT Facility:[facility] Start: 12-28-2021 End: 12-28-2021 ambulatory Martha Guevara Other [facility] Other Start: 12-28-2021 Office outpatient visit 15 minutes Martha Paola [facility] Start: 12-25-2021 End: 12-25-2021 ambulatory Cathy Bella Other [facility] Other Start: 12-25-2021 Office outpatient visit 25 minutes Cathy Bella [facility] Start: 12-05-2021 End: 12-06-[address] DOCTOR MISC Facility:[facility] Start: 11-07-2021 End: 11-08-[address] DOCTOR MISC Facility:[facility] Start: 10-27-2021 End: 10-27-2021 ambulatory Cathy Bella Other [facility] Other Start: 10-27-2021 Office outpatient visit 15 minutes Cathy Bella [facility] Start: 10-15-2021 End: 10-16-[address] DOCTOR MISC Facility:[facility] Start: 10-08-2021 End: 10-09-[address] DOCTOR MISC Facility:[facility] Start: 09-10-2021 End: 09-11-[address] DOCTOR MISC Facility:[facility] Start: 08-14-2021 End: 08-14-2021 ambulatory Martha Guevara Other [facility] Other Start: 08-14-2021 Office outpatient visit 15 minutes Martha Guevara [facility] Start: 12-31-2017 End: 01-01-2018 Patient encounter VIRGIL HAYNES Facility:[facility] Start: 12-25-2017 End: 12-26-2017 Patient encounter ROSALINDA ORSENBAUM Facility:[facility] Start: 10-30-2017 End: 10-31-2017 Patient encounter ROSALINDA ROSENBAUM Facility:[facility] Start: 10-23-2017 End: 10-24-2017 Patient encounter ROSALINDA ROSENBAUM Facility:[facility] Start: 09-25-2017 End: 09-26-2017 Patient encounter ROSALINDA ROSENBAUM Facility:[facility] Start: 08-26-2017 End: 08-27-2017 Patient encounter ROSALINDA ROSENBAUM Facility:[facility] Start: 07-23-2017 End: 07-24-2017 Patient encounter ROSALINDA ROSENBAUM Facility:[facility] Start: 06-20-2017 End: 06-21-2017 Patient encounter ROSALINDA ROSENBAUM Facility:[facility] Start: 05-27-2017 End: 05-28-2017 Patient encounter ROSALINDA ROSENBAUM Facility:[facility] Start: 04-29-2017 End: 04-30-2017 Patient encounter ROSALINDA ROSENBAUM Facility:[facility] Start: 03-27-2017 End: 03-28-2017 Patient encounter ROSALINDA ROSENBAUM Facility:[facility] Start: 02-26-2017 End: 02-27-2017 Patient encounter DOE BRIDGES Facility:[facility] Procedures Date Procedure Procedure Detail Performing Clinician Start: 08-14-2021 Piperacillin/tazobactam Martha Guevara Other Immunizations Immunization Date Immunization Notes Care Provider Fa kushal 03-16-2009 influenza virus vaccine, split virus (incl. purified surface antigen) Martha Guevara Other [facility] Other Payers Date Payer Category Payer [facility] [id number] 1959 Self-pay 1959 Unknown [id number] 1956 Unknown [id number] 2.16.8 40.1.785441.3.579.2.647 1956 Unknown [id number] 2.16.8 40.1.585194.3.579.2.647 1956 Unknown [id number] 2.16.8 40.1.607771.3.579.2.647 1956 Unknown [id number] 2.16.8 40.1.980849.3.579.2.647 1956 Unknown [id number] 2.16.8 40.1.005631.3.579.2.647 1956 Unknown [id number] 2.16.8 40.1.533997.3.579.2.647 1956 Unknown [id number] 2.16.8 40.1.698786.3.579.2.647 1956 Unknown [id number] 2.16.8 40.1.817578.3.579.2.647 1956 Unknown [id number] 2.16.8 40.1.440255.3.579.2.647 1956 Unknown [id number] 2.16.8 40.1.057714.3.579.2.647 1956 Unknown [id number] 2.16.8 40.1.482583.3.579.2.647 1956 Unknown [id number] 2.16.8 40.1.887433.3.579.2.647 1956 Unknown [id number] 2.16.84 0.1.655690.3.579.2.593 1956 Unknown [id number] 2.16.84 0.1.651178.3.579.2.59 1956 Unknown [id number] 2.16.84 0.1.132022.3.579.2.593 1956 Unknown [id number] 2.16.84 0.1.281476.3.579.2.59 1956 Unknown [id number] 2.16.84 0.1.273019.3.579.2.593 1956 Unknown [id number] 2.16.84 0.1.619181.3.579.2.593 1956 Unknown [id number] 2.16.84 0.1.875057.3.579.2.593 1956 Unknown [id number] 2.16.84 0.1.166085.3.579.2.593 1956 Unknown [id number] 2.16.84 0.1.275471.3.579.2.593 1956 Unknown [id number] 2.16.84 0.1.851264.3.579.2.593 1956 Unknown [id number] 2.16.84 0.1.948369.3.579.2.593 1956 Unknown [id number] 2.16.84 0.1.150596.3.579.2.593 1956 Unknown [id number] 2.16.84 0.1.226748.3.579.2.593 1956 Unknown [id number] 2.16.84 0.1.670147.3.579.2.593 1956 Unknown [id number] 2.16.84 0.1.162704.3.579.2.593 1956 Unknown [id number] 2.16.840 .1.730768.3.579.2.1259 1956 Unknown [id number] 2.16.840 .1.724965.3.579.2.1259 1956 Unknown [id number] 2.16.840 .1.338461.3.579.2.1259 Unknown [id number] 2.16.84 0.1.003633.3.579.2.593 Social History Date Type Detail Facility Unknown if ever smoked [facility] Other Sex Assigned At Sex Assigned At Bir th [facility] Other Clinical Notes 11-10-2007 to 03-27-2023 Note [...] and rest, Tylenol as directed, rx of [place], cool mist humidifier, throat lozenges. Discussed infection [...] condition. Feb, Sore throat (ICD-10 - J02.9) [facility] Other 12-18-2023 Note03/17/23 Chief Complaint Patient presents with Kidney Follow-up Patient would like to know if [facility] would prescribe depression medication. PCP: Ramon Carroll MD Txp Referring: Preferred Pharmacy: [facility] - [place], [place] - [address] [facility] [address] [id number] - [place], [place] - [address] [facility] [address] [facility] [address] [facility] [address] [facility] - [place], [place] - [address] [facility] [address] [facility] [address] Subjective Visit Vitals BP 142/80 (BP Location: Right arm, Patient Position: Sitting) Pulse 63 Temp 36.3 ???C (97.4 ???F) (Oral) Ht 1.524 m (5') Wt 60.6 kg (133 lb 9.6 oz) BMI 26.09 kg/m??? Smoking Status Never BSA 1.6 m??? No Known Allergies Medication Documentation Review Audit Reviewed by Tosha Lagos MA (Last Turner) on 03/17/23 at 0956 Medication Order Taking? Sig Documenting Provider Last Dose Status amLODIPine (Norvasc) 5 mg tablet [id number] Yes TAKE 1 TABLET BY MOUTH EVERY DAY Vir[facility] Haynes NP Taking Active amoxicillin (Amoxil) 500 mg capsule [id number] No 1 capsule every 8 (eight) hours. Historical Provider, Not Taking Active atorvastatin (Lipitor) 20 mg tablet [id number] Yes TAKE 1 TABLET BY MOUTH EVERY DAY AT BEDTIME Virgil Haynes NP Taking Active baclofen (Lioresal) 10 mg tablet [id number] Yes Historical Provider, Taking Active cyanocobalamin (Vitamin B-12) 500 mcg tablet [id number] No in the morning. Historical Provider, Not Taking Active magnesium oxide (Mag-Ox) 400 mg (241.3 mg magnesium) tablet [id number] Yes Take 400 mg by mouth in the morning. Historical Provider, Taking Active mycophenolate (Myfortic) 180 mg EC tablet [id number] Yes TAKE 4 TABLETS BY MOUTH IN THE MORNING AND AT BEDTIME Doe Bridges MD Taking Active omega-3 fatty acids-fish oil (Fish OiL Extra Strength) 435-880 mg capsule [id number] No 1 capsule 1 (one) time each day at the same time. Historical Provider, Not Taking Active PARoxetine (Paxil) 10 mg tablet [id number] Yes Take 10 mg by mouth in the morning. Historical Provider, Taking Active potassium gluconate 595 mg (99 mg) tablet [id number] No every 12 (twelve) hours. Historical ProviderMD Not Taking Active spironolactone (Aldactone) 25 mg tablet [id number] Yes TAKE 1 TABLET BY MOUTH EVERY DAY Virgil Haynes NP Taking Active tacrolimus (Prograf) 0.5 mg capsule [id number] Yes TAKE ONE CAPSULE BY MOUTH EVERY MORNING AND 1 CAPSULE EVERY NIGHT AT BEDTIME Anthony Kuzn MD Taking Active Immunization History Administered Date(s) Administered [employer] Sars-Cov-2 Vaccination 06/07/2020 There is no problem [...] since 02/15/23 No documented travel since 02/15/23 [facility] Tanika Grimm is a 67 y.o. 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 03/17/23 Pt presents visit with . Pt states labs done Last week in [facility] and [place] calling for results. Pt seeing Derm in [place] for lesion: forearm and other lesions. Hx: [...] Hgb. Pt AGAIN instructed to use our [facility] Transplant standing order for her monthly labs. Pt reports B/P stable at home Discussed hydration PLan of Care: Continue meds and MONTHLY Labs with [facility] standing Order. Follow up 6 months or [...] ; Creat 0.9 ; (more content not included)...[facility]10-18-2023 Note Reviewed Ext Tac 3.6 over the phone with Dr. Vivas, per phone order no changes at this time.[facility]07-14-2023 NoteReviewed labs from 10/09/22, no changes.[facility]06-20-2023 Note 09/17/22 Chief Complaint Patient presents with Kidney Follow-up Patient has no new concerns PCP: Ramon Carroll MD Txp Referring: Preferred Pharmacy: [facility] - [place], [place] - [address] [facility] [address] [id number] [place], [place] - [address] [facility] [address] [facility] [address] [facility] [id number] Subjective Visit Vitals BP 123/81 (BP Location: Right arm, Patient Position: Sitting, BP Cuff Size: Adult) Pulse 77 Temp 36.7 ???C (98.1 ???F) Ht 1.524 m (5') Wt 58.1 kg (128 lb) BMI 25.00 kg/m??? Smoking Status Never BSA 1.57 m??? No Known Allergies Medication Documentation Review Audit Reviewed by LUANN HERNÁNDEZ (Last Turner) on 09/17/22 at 1019 Medication Order Taking? Sig Documenting Provider Last Dose Status amLODIPine (Norvasc) 5 mg tablet [id number] Take 5 mg by mouth in the morning. Yasmin Mancia MD Active amoxicillin (Amoxil) 500 mg capsule [id number] 1 capsule every 8 (eight) hours. Yasmin ProviderMD Active atorvastatin (Lipitor) 20 mg tablet [id number] Take 20 mg by mouth in the morning. Yasmin Mancia MD Active cyanocobalamin (Vitamin B-12) 500 mcg tablet [id number] in the morning. Yasmin Mancia MD Active magnesium oxide (Mag-Ox) 400 mg (241.3 mg magnesium) tablet [id number] Take 400 mg by mouth in the morning. Yasmin Mancia MD Active mycophenolate (Myfortic) 180 mg EC tablet [id number] Take 4 tablets (720 mg) by mouth in the morning and at bedtime. Patient should take as directed BID Doe Bridges MD Active omega-3 fatty acids-fish oil (Fish OiL Extra Strength) 435-880 mg capsule [id number] 1 capsule 1 (one) time each day at the same time. Historical MD Blanche Active potassium gluconate 595 mg (99 mg) tablet [id number] every 12 (twelve) hours. Yasmin Mancia MD Active spironolactone (Aldactone) 25 mg tablet [id number] Take 25 mg by mouth in the morning. Yasmin Mancia MD Active tacrolimus (Prograf) 0.5 mg capsule [id number] Take 1 capsule (0.5 mg) by mouth in the morning and at bedtime. Take 1mg tacrolimus PO Qam and 0.5mg PO Qpm or as directed TDD 2mg, z94.0 Anthony Kunz MD Active tacrolimus (Prograf) 1 mg capsule [id number] Take 1 capsule (1 mg) by mouth [...] had intermittent mild bilateral (more content not included)...[facility]10-15-2022 Evaluation note* Encounter Date Diagnosis Assessment Notes [...] understanding and is agreeable with treatment plan [facility] Other 09-30-2022 Evaluation note* Encounter Date Diagnosis [...] no improvement in 2 to 3 days. [facility] Other 09-27-2022 Evaluation note* Encounter Date Diagnosis [...] treatment plan. Patient left in stable condition [facility] Other 07-30-2022 Evaluation note* Encounter Date Diagnosis [...] verbalizes understanding and agrees with treatment plan [facility] Other 05-17-2022 Evaluation note* Encounter Date Diagnosis [...] days July, Hematuria, unspecified (ICD-10 - R31.9) [facility] Other 08-12-2008 History general Narrative - Reported* Type Description Date Medical History PKD found in 1982 when she had a son Medical History hypertension Medical History kidney transplant Surgical History resection of superior cervical mass 11/10/07 Surgical History Teeth extraction in preparation for renal transplant Surgical History portacath placement Surgical History kidney transplant 2013 Hospitalization History see above [facility] Other Evaluation noteNort [facility] Other History general Narrative - ReportedNortViewabill Other Summary Purpose Family History No Family [...] and content) DATE CREATED AUTHOR 01/30/2018 [facility] DATE CREATED AUTHOR AUTHOR'S ORGANIZ ATION 08/17/2021 [facility] DATE CREATED AUTHOR AUTHOR'S ORGANIZ ATION 08/13/2022 [facility] DATE CREATED AUTHOR AUTHOR'S ORGANIZ ATION 04/03/2023 [facility] DATE CREATED AUTHOR AUTHOR'S ORGANIZ ATION 05/29/2023 [facility] REASON FOR VISIT (unrecogniz ed section and content) DYSURIADYSURIADYSURIAPOSS RA SH ON BACK, ITCHINGDODGE JOURNEY, SORE THROAT, COUGHBLACK DODGE JOURNT SORE THROATIN CAR, MOUTH SORES, CALL [phone] THROAT, COUGHING, DRAINAGE FOR RECORDS PERTAINING TO [...] BE BASED ON THE PRIMARY CLINICAL RECORDS. [employer] provides no warranty or guarantee of the accuracy or completeness of information in this document.
[2023-07-14 07:05] LABS: Basophils Percent Auto 0.2 % (0.2-2.0); Eosinophils Absolute Auto 0.2 10^3/uL (0.0-0.7); Eosinophils Percent Auto 2.3 % (0.9-7.0); Hematocrit 45.9 % (36.0-48.0); Hemoglobin 14.5 g/dL (12.0-16.0); Immature Granulocytes Abs Auto 0.01 10^3/uL (0.00-0.03); Immature Granulocytes Pct Auto 0.1 % (0.0-0.5); Lymphocytes Absolute Auto 1.5 10^3/uL (1.2-3.8); Lymphocytes Percent Auto 18.1 % (20.5-60.0); Mean Corpuscular HGB Conc 31.6 g/dL (29.9-35.2); Mean Corpuscular Hemoglobin 30.3 pg (26.7-34.0); Mean Platelet Volume 11.8 fL (9.5-13.5); Monocytes Absolute Auto 0.9 10^3/uL (0.3-0.8); Monocytes Percent Auto 10.7 % (1.7-12.0); Neutrophils Absolute Auto 5.6 10^3/uL (1.4-6.5); Neutrophils Percent Auto 68.6 % (43.0-75.0); Platelet Count 187 10^3/uL (150-450); Red Blood Count 4.78 10^6/uL (4.20-5.40); Red Cell Distribution Width 14.5 % (11.0-15.0); White Blood Count 8.2 10^3/uL (4.0-11.0)
[2023-07-14 07:16] LABS: Estimated Average Glucose 105 mg/dL; Glycohemoglobin A1C 5.3 % (4.5-6.2)
[2023-07-14 08:20] LABS: Alanine Aminotransferase 19 U/L (14-59); Albumin Globulin Ratio 1.2; Albumin Level 3.7 g/dL (3.4-5.0); Alkaline Phosphatase 144 U/L (46-116); Anion Gap 13.3; Aspartate Amino Transferase 15 U/L (15-37); BUN Creatinine Ratio 24.4; Bilirubin Direct 0.1 mg/dL (0.0-0.2); Bilirubin Total 0.6 mg/dL (0.2-1.0); Calcium 9.5 mg/dL (8.5-10.1); Chloride 104 mmol/L (98-107); Chol HDL Ratio 2.6; Cholesterol 136 mg/dL (<=200); Estimated GFR (African America >60 (>=60); Estimated GFR (Non-African Ame >60 (>=60); Globulin 3.2 g/dL; Glucose 90 mg/dL (74-106); HDL Cholesterol 53 mg/dL (40-60); LDL Cholesterol Calculated 64.4 mg/dL; Phosphorus 3.4 mg/dL (2.6-4.7); Potassium 4.3 mmol/L (3.5-5.1); Sodium 141 mmol/L (136-145); Total Protein 6.9 g/dL (6.4-8.2); Triglycerides 93 mg/dL (<=150); Uric Acid 4.7 mg/dL (2.6-6.0); VLDL CHOLESTEROL 18.6 mg/dL
[2023-07-16 14:10] LABS: BKV DNA, Quant PCR, Plasma Negative (Negative)
== END 2023-07-14 06:38 | disposition home or self-care (01) ==
LOC: LAB 06:38
PROVIDERS: PCP Internal Medicine
DX: Z48.298 Encounter for aftercare following other organ transplant (principal); Z94.0 Kidney transplant status
CPT/HCPCS: 36415; 80053; 80061; 80076; 80197; 83036; 83735; 84100; 84550; 85025; 87799

== ENCOUNTER 2023-08-11 06:39 | Outpatient (OUT) | payer MEDICARE, SELFPAY ==
--- OUTSIDE RECORDS SUMMARY | 2023-08-11 06:43 | XMS_ITS | CCD ---
Author Organization [facility] Care Team Providers Care Project Surveyor Name Role Phone COLD SPRINGS, DINKAR Unavailable Unavailable COLD [place]INGS, DINKAR Unavailable Unavailable CARROLL, RAMON Unavailable Unavailable [...] Attending Unavailable MISC, DR OBRIEN Admitting Unavailable COLD SPRINGS, DR CONNORS Consulting Unavailable CARROLL, DR DARBY Primary Care Unavailable MISC, DR OBRIEN Attending Unavailable MISC, DR OBRIEN Admitting Unavailable MISC, DR OBRIEN Attending Unavailable MISC, DR OBRIEN Admitting Unavailable MISC, DR OBRIEN Consulting Unavailable CARROLL, DR DARBY Primary Care Unavailable COLD SPRINGS, DR CONNORS Consulting Unavailable COLD [place]INGS, DR CONNORS Attending Unavailable CARROLL, DR DARBY Primary Care Unavailable COLD SPRINGS, DR CONNORS Admitting Unavailable COLD [place], DR CONNORS Attending Unavailable CARROLL, DR DARBY Primary Care Unavailable COLD SPRINGS, DR CONNORS Admitting Unavailable C[place], DR CONNORS Consulting Unavailable MISC, DR OBRIEN [...] Unavailable CARROLL, DR DARBY Primary Care Unavailable COLD SPRINGS, DR CONNORS Consulting Unavailable C[place], DR CONNORS Attending Unavailable CARROLL, DR DARBY Primary Care Unavailable COLD [place]INGS, DR CONNORS Admitting Unavailable MISC, DR OBRIEN Attending Unavailable MISC, DR OBIREN Admitting Unavailable MISC, DR OBRIEN Consulting Unavailable CARROLL, DR DARBY Primary Care Unavailable MISC, DOCTOR Attending Unavailable MISC, DR OBRIEN Admitting Unavailable MISC, DR DOCTOR Consulting Unavailable DR RAMON CARROLL Primary Care Unavailable COLD SPR[place], DR CONNORS Consulting Unavailable C[place], DR CONNORS Attending Unavailable C[place], DR CONNORS Admitting Unavailable DR RAMON CARROLL Primary Care Unavailable RAMON CARROLL Attending Unavailable JOHN PADILLA Attending Unavailable JOHN PADILLA Attending Unavailable VIRGIL HAYNES Attending Unavailable VIRGIL HAYNES Attending Unavailable Medications Current Medications Medication Drug Class(es) Dates Sig (Normalized) Sig (Original) [id number] 200 actuat albuterol 0.09 mg/actuat metered dose [...] 1.5 mg/ml oral solution (1 source) Uncompetitive Y-rybqfl-B-aspartate Receptor Antagonist, Sigma-1 Agonist Start: 03-27-20 23 take 10 mL by mouth every eight hours Marion DM 7.5-7.5 MG/5ML 10 mL Orally every 8 hours for 5 days Feb, Active ergocalciferol 1.25 mg oral capsule (9 sources) Provitamin D2 Compound Start: 06-27-19 12 take 1 capsule by mouth every week Vitamin D (Ergocalciferol) 20279 UNIT 1 capsule Orally Once a Week [...] Start: 12-25-2021 take 1 capsule by mo [facility] every eight hours Tessalon Perles 100 [...] 03-27-2017 Episodic Other aftercare (2 sources) 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 pyogenes Org specific cx Ql (Throat) Negative [facility] Other Quick Strep [facility] Other 29on 03-17-2023 29 Addended by: TOSHA LAGOS on: 03/17/2023 11:44 AM Modules accepted: Orders Normal [facility] Follow-Upon 03-17-2023 Follow-Up [id number] Tanika Grimm 1955 F Date Provider Department Center 03/17/2023 VIRGIL HAYES TXP None No family history on file Level of Service:92015 CO OFFICE/OUTPATIENT ESTABLISHED LOW MDM 20 MIN Reason for Visit and Comments: Kidney Follow-up [[id number]] - Patient would like to know if Virgil would prescribe depression medication. Normal [facility] 36on 01-31-2023 36 Transplant Pharmacis t [...] need for taper. The patient's verbalized understanding. [employer] Inspector added medication to med list. The patient's stated patient will be getting a DEXA scan and recommended to not have calcium 3 days before. Reviewed medication list for any products containing calcium - no medications found. No other questions or concerns at this time. Normal [facility] Telephoneon 01-31-2023 Telephone [phone] Tanika Grimm 1955 F Date Provider Department Center 01/31/2023 3915-JAH PAGE TXP None No family history on file Reason for Visit and Comments: Transplant Pharmacist - Drug Information [[id number]] [facility] Documentationon 10-09-2022 Documentation [id number] Tanika Grimm 1955 F Date Provider Department Center 10/09/2022 3193-KATY CRUZ TXP None No family history on file Normal [facility] 29on 09-17-2022 29 Addended by: FERNANDA NAGEL on: 09/17/2022 12:16 PM Modules accepted: Orders Normal [facility] CREATININE, URINE, RANDOMon 09-17-2022 Creatinine (U) [Mass/Vol] 252.0 mg/dL Normal 26-299 [facility] Comment on above: Performed By: #### L [id number] ####[facility] [place] [address] Follow-Upon 09-17-2022 Follow-Up [id number] Tanika Grimm 1955 Provider Department Center 09/17/2022 124-VIRGIL HAYNES TXP None No family history on file Level of Service:22194 CO OFFICE/OUTPATIENT ESTABLISHED LOW MDM 20-29 MIN Reason for Visit and Comments: Kidney Follow-up [] - Patient has no new concerns Normal [facility] PROTEIN, URINE, RANDOMon Protein (U) [Mass/Vol] 29.5 mg/dL Normal [facility] Comment on above: Result Comment: Ther e are no established reference values for random urine specimens. Performed By: #### L [id number] ####[facility] [place] [address] Documentationon 08-15-2022 Documentation [id number] Tanika Grimm 1955 Provider Department Center 08/15/2022 3193-KATY CRUZ TXP None No family history on file Normal [facility] BILIRUBIN CONJUGATED (DIRECT )on 08-12-2022 BILI, CONJUGATED 0.1 mg/dL Normal 0.0-0.2 [facility] Comment on above: Performed By: #### D DAVIDSON, MG, PHOS, CMP, LIPID, URIC #### [facility] [address] [address] [address] Sarmad Patino GLYCOHEMOGLOBIN A1Con 2022 ADA RECOMMENDATION SEE BELOW Normal [facility] Comment on above: Result Comment: ADA RECOMMENDED LIMIT 4.0 - 6.0 ADA THERAPEUTIC TARGET < 7.0 ACTION SUGGESTED > 7.0 Performed By: #### D DAVIDSON, MG, PHOS, CMP, LIPID, URIC #### [facility] [address] [address] [address] Sarmad Patino Glucose [Mass/Vol] 108 mg/dL Normal [facility] Comment on above: Performed By: #### D DAVIDSON, MG, PHOS, CMP, LIPID, URIC #### [facility] [address] [address] [address] Sarmad Patino HbA1c (Bld) [Mass fraction] 5.4 % Normal 4.5-6.2 [facility] Comment on above: Performed By: #### D DAVIDSON, MG, PHOS, CMP, LIPID, URIC #### [facility] [address] [address] [address] Sarmad Patino MAGNESIUMon 08-12-2022 Magnesium [Mass/Vol] 1.7 mg/dL Critically low 1.8-2.4 [facility] Comment on above: Performed By: #### D DAVIDSON, MG, PHOS, CMP, LIPID, URIC #### [facility] [address] [place] [address] Dr. Sarmad Patino PHOSPHORUSon 08-12-2022 Phosphate [Mass/Vol] 3.9 mg/dL Normal 2.6-4.7 [facility] Comment on above: Performed By: #### U MAXI, LIPID, MG, CMP, DBIL, PHOS #### [facility] [address] [place] [address] Dr. Sarmad Patino PROF 14(COMP METB)on 023 Albumin [Mass/Vol] 3.9 g/dL Normal 3.4-5.0 [facility] Comment on above: Performed By: #### D DAVIDSON, MG, PHOS, CMP, LIPID, URIC #### [facility] [address] [place] [address] Dr. Sarmad Patino Albumin/Globulin [Mass ratio] 1.2 {ratio} Normal [facility] Comment on above: Performed By: #### D DAVIDSON, MG, PHOS, CMP, LIPID, URIC #### [facility] [address] [place] [address] Dr. Sarmad Patino ALP [Catalytic activity/Vol] 126 U/L Critically high 46-116 [facility] Comment on above: Performed By: #### D DAVIDSON, MG, PHOS, CMP, LIPID, URIC #### [facility] [address] [place] [address] Dr. Sarmad Patino ALT [Catalytic activity/Vol] 18 U/L Normal 14-59 [facility] Comment on above: Performed By: #### D DAVIDSON, MG, PHOS, CMP, LIPID, URIC #### [facility] [address] [address] [address] Sarmad Patino Anion gap [Moles/Vol] 10.4 mmol/L Normal [facility] Comment on above: Performed By: #### D DAVIDSON, MG, PHOS, CMP, LIPID, URIC #### [facility] [address] [place] [address] Dr. Sarmad Patino AST [Catalytic activity/Vol] 14 U/L Critically low 15-37 [facility] Comment on above: Performed By: #### D DAVIDSON, MG, PHOS, CMP, LIPID, URIC #### [facility] [address] [place] [address] Dr. Sarmad Patino Bilirubin [Mass/Vol] 0.7 mg/dL Normal 0.2-1.0 [facility] Comment on above: Performed By: #### D DAVIDSON, MG, PHOS, CMP, LIPID, URIC #### [facility] [address] [place] [address] Dr. Sarmad Patino Calcium [Mass/Vol] 9.8 mg/dL Normal 8.5-10.1 [facility] Comment on above: Performed By: #### D DAVIDSON, MG, PHOS, CMP, LIPID, URIC #### [facility] [address] [place] [address] Dr. Sarmad Patino Chloride [Moles/Vol] 106 mmol/L Normal 98-107 [facility] Comment on above: Performed By: #### D DAVIDSON, MG, PHOS, CMP, LIPID, URIC #### [facility] [address] [place] [address] Dr. Sarmad Patino CO2 [Moles/Vol] 32.1 mmol/L Critically high 21.0-32.0 [facility] Comment on above: Performed By: #### D ADVIDSON, MG, PHOS, CMP, LIPID, URIC #### [facility] [address] [place] [address] Dr. Sarmad Patino Creatinine [Mass/Vol] 0.92 mg/dL Normal 0.55-1.02 [facility] Comment on above: Performed By: #### D DAVIDSON, MG, PHOS, CMP, LIPID, URIC #### [facility] [address] [address] [address] Sarmad Patino EGFR-AF CA[place] ISLANDER >60 Normal >=60 [facility] Comment on above: Performed By: #### D DAVIDSON, MG, PHOS, CMP, LIPID, URIC #### [facility] [address] [address] [address] Sarmad Paitno EGFR-NON AF [place] ISLANDER >60 Normal >=60 [facility] Comment on above: Performed By: #### D DAVIDSON, MG, PHOS, CMP, LIPID, URIC #### [facility] [address] [place] [address] Dr. Sarmad Patino Globulin (S) [Mass/Vol] 3.3 g/dL Normal [facility] Comment on above: Performed By: #### D DAVIDSON, MG, PHOS, CMP, LIPID, URIC #### [facility] [address] [address] [address] Sarmad Patino Glucose [Mass/Vol] 102 mg/dL Normal 74-106 [facility] Comment on above: Performed By: #### D DAVIDSON, MG, PHOS, CMP, LIPID, URIC #### [facility] [address] [place] [address] Dr. Sarmad Patino Potassium [Moles/Vol] 4.5 mmol/L Normal 3.5-5.1 [facility] Comment on above: Performed By: #### D DAVIDSON, MG, PHOS, CMP, LIPID, URIC #### [facility] [address] [place] [address] Dr. Sarmad Patino Protein [Mass/Vol] 7.2 g/dL Normal 6.4-8.2 [facility] Comment on above: Performed By: #### D DAVIDSON, MG, PHOS, CMP, LIPID, URIC #### [facility] [address] [address] [address] Sarmad Patino Sodium [Moles/Vol] 144 mmol/L Normal 136-145 [facility] Comment on above: Performed By: #### D DAVIDSON, MG, PHOS, CMP, LIPID, URIC #### [facility] [address] [address] [address] Sarmad Patino Urea nitrogen [Mass/Vol] 20.0 mg/dL Critically high 7.0-18.0 [facility] Comment on above: Performed By: #### D DAVIDSON, MG, PHOS, CMP, LIPID, URIC #### [facility] [address] [address] [address] Sarmad Patino Urea nitrogen/Creatinine [Mass ratio] 21.7 mg/mg Normal [facility] Comment on above: Performed By: #### D DAVIDSON, MG, PHOS, CMP, LIPID, URIC #### [facility] [address] [address] [address] Sarmad Patino URIC ACID SERUMon 08-12-2022 Urate [Mass/Vol] 5.2 mg/dL Normal 2.6-6.0 [facility] Comment on above: Performed By: #### D DAVIDSON, MG, PHOS, CMP, LIPID, URIC #### [facility] [address] [address] [address] Sarmad Patino MG MAMM SCREEN 3D DAVIDSON CADon 07-23-2022 MG MAMM SCREEN 3D DAVIDSON CAD Patient: TANIKA GRIMM Exam Date: 07/23/2022 : 1955 Gender:F Ordering : DR RAMON CARROLL M.D. Admission #: [id number] Family : Order #: [id number] CLICK HERE TO VIEW EXAM RADIOLOGY REPORT [...] Treatments None Family Cancers None LOCATION: [facility] BREAST COMPOSITION: Extremely dense, which lowers [...] M.D. on 07/23/2022 at 16:59 Normal [facility] FK506 (TACROLIMUS) WHOLE BLO ODon 07-10-2022 Tacrolimus (FK506), Blood 3.8 ng/mL Normal 2.0-20.0 [facility] Comment on above: Result Comment: Trou gh (immediately following transplant) 15.0 . Trough (steady state, 2 weeks or more after transplant): 3.0 - 8.0 . Performed by LC-MS/MS technology. Performed By: #### D DAVIDSON, MG, PHOS, CMP, LIPID, URIC #### [facility] [address] [place] [address] Dr. Sarmad Patino BILIRUBIN CONJUGATED (DIRECT )on 07-08-2022 BILI, CONJUGATED 0.1 mg/dL Normal 0.0-0.2 [facility] Comment on above: Performed By: #### U MAXI, LIPID, MG, CMP, DBIL, PHOS #### [facility] [address] [address] [address] Sarmad Patino GLYCOHEMOGLOBIN A1Con 2022 ADA RECOMMENDATION SEE BELOW Normal [facility] Comment on above: Result Comment: ADA RECOMMENDED LIMIT 4.0 - 6.0 ADA THERAPEUTIC TARGET < 7.0 ACTION SUGGESTED > 7.0 Performed By: #### D DAVIDSON, MG, PHOS, CMP, LIPID, URIC #### [facility] [address] [address] [address] Sarmad Patino Glucose [Mass/Vol] 105 mg/dL Normal [facility] Comment on above: Performed By: #### D DAVIDSON, MG, PHOS, CMP, LIPID, URIC #### [facility] [address] [address] [address] Sarmad Patino HbA1c (Bld) [Mass fraction] 5.3 % Normal 4.5-6.2 [facility] Comment on above: Performed By: #### D DAVIDSON, MG, PHOS, CMP, LIPID, URIC #### [facility] [address] [place] [address] Dr. Sarmad Patino MAGNESIUMon 07-08-2022 Magnesium [Mass/Vol] 1.8 mg/dL Normal 1.8-2.4 [facility] Comment on above: Performed By: #### U MAXI, LIPID, MG, CMP, DBIL, PHOS #### [facility] [address] [place] [address] Dr. Sarmad Patino PHOSPHORUSon 07-08-2022 Phosphate [Mass/Vol] 3.8 mg/dL Normal 2.6-4.7 [facility] Comment on above: Performed By: #### U MAXI, LIPID, MG, CMP, DBIL, PHOS #### [facility] [address] [place] [address] Dr. Sarmad Patino PROF 14(COMP METB)on 023 Albumin [Mass/Vol] 3.7 g/dL Normal 3.4-5.0 [facility] Comment on above: Performed By: #### U MAXI, LIPID, MG, CMP, DBIL, PHOS #### [facility] [address] [place] [address] Dr. Sarmad Patino Albumin/Globulin [Mass ratio] 1.1 {ratio} Normal [facility] Comment on above: Performed By: #### U MAXI, LIPID, MG, CMP, DBIL, PHOS #### [facility] [address] [place] [address] Dr. Sarmad Patino ALP [Catalytic activity/Vol] 124 U/L Critically high 46-116 [facility] Comment on above: Performed By: #### U MAXI, LIPID, MG, CMP, DBIL, PHOS #### [facility] [address] [place] [address] Dr. Sarmad Patino ALT [Catalytic activity/Vol] 20 U/L Normal 14-59 [facility] Comment on above: Performed By: #### U MAXI, LIPID, MG, CMP, DBIL, PHOS #### [facility] [address] [address] [address] Sarmad Patino Anion gap [Moles/Vol] 11.5 mmol/L Normal [facility] Comment on above: Performed By: #### U MAXI, LIPID, MG, CMP, DBIL, PHOS #### [facility] [address] [address] [address] Sarmad Patino AST [Catalytic activity/Vol] 12 U/L Critically low 15-37 [facility] Comment on above: Performed By: #### U MAXI, LIPID, MG, CMP, DBIL, PHOS #### [facility] [address] [place] [address] Dr. Sarmad Patino Bilirubin [Mass/Vol] 0.5 mg/dL Normal 0.2-1.0 [facility] Comment on above: Performed By: #### U MAXI, LIPID, MG, CMP, DBIL, PHOS #### [facility] [address] [place] [address] Dr. Sarmad Patino Calcium [Mass/Vol] 9.6 mg/dL Normal 8.5-10.1 [facility] Comment on above: Performed By: #### U MAXI, LIPID, MG, CMP, DBIL, PHOS #### [facility] [address] [place] [address] Dr. Sarmad Patino Chloride [Moles/Vol] 106 mmol/L Normal 98-107 [facility] Comment on above: Performed By: #### U MAXI, LIPID, MG, CMP, DBIL, PHOS #### [facility] [address] [place] [address] Dr. Sarmad Patino CO2 [Moles/Vol] 29.7 mmol/L Normal 21.0-32.0 [facility] Comment on above: Performed By: #### U MAXI, LIPID, MG, CMP, DBIL, PHOS #### [facility] [address] [place] [address] Dr. Sarmad Patino Creatinine [Mass/Vol] 0.77 mg/dL Normal 0.55-1.02 [facility] Comment on above: Performed By: #### U MAXI, LIPID, MG, CMP, DBIL, PHOS #### [facility] [address] [address] [address] Sarmad Patino EGFR-AF [place] ISLANDER >60 Normal >=60 [facility] Comment on above: Performed By: #### U MAXI, LIPID, MG, CMP, DBIL, PHOS #### [facility] [address] [place] [address] Dr. Sarmad Patino EGFR-NON AF [place] ISLANDER >60 Normal >=60 [facility] Comment on above: Performed By: #### U MAXI, LIPID, MG, CMP, DBIL, PHOS #### [facility] [address] [place] [address] Dr. Sarmad Patino Globulin (S) [Mass/Vol] 3.4 g/dL Normal [facility] Comment on above: Performed By: #### U MAXI, LIPID, MG, CMP, DBIL, PHOS #### [facility] [address] [place] [address] Dr. Sarmad Patino Glucose [Mass/Vol] 97 mg/dL Normal 74-106 [facility] Comment on above: Performed By: #### U MAXI, LIPID, MG, CMP, DBIL, PHOS #### [facility] [address] [place] [address] Dr. Sarmad Patino Potassium [Moles/Vol] 4.2 mmol/L Normal 3.5-5.1 [facility] Comment on above: Performed By: #### U MAXI, LIPID, MG, CMP, DBIL, PHOS #### [facility] [address] [address] [address] Sarmad Patino Protein [Mass/Vol] 7.1 g/dL Normal 6.4-8.2 [facility] Comment on above: Performed By: #### U MAXI, LIPID, MG, CMP, DBIL, PHOS #### [facility] [address] [place] [address] Dr. Sarmad Patino Sodium [Moles/Vol] 143 mmol/L Normal 136-145 [facility] Comment on above: Performed By: #### U MAXI, LIPID, MG, CMP, DBIL, PHOS #### [facility] [address] [place] [address] Dr. Sarmad Patino Urea nitrogen [Mass/Vol] 26.0 mg/dL Critically high 7.0-18.0 [facility] Comment on above: Performed By: #### U MAXI, LIPID, MG, CMP, DBIL, PHOS #### [facility] [address] [place] [address] Dr. Sarmad Patino Urea nitrogen/Creatinine [Mass ratio] 33.8 mg/mg Normal [facility] Comment on above: Performed By: #### U MAXI, LIPID, MG, CMP, DBIL, PHOS #### [facility] [address] [place] [address] Dr. Sarmad Patino URIC ACID SERUMon 07-08-2022 Urate [Mass/Vol] 4.7 mg/dL Normal 2.6-6.0 [facility] Comment on above: Performed By: #### U MAXI, LIPID, MG, CMP, DBIL, PHOS #### [facility] [address] [place] [address] Dr. Sarmad Patino FK506 (TACROLIMUS) WHOLE BLO ODon 06-13-2022 Tacrolimus (FK506), Blood 3.0 ng/mL Normal 2.0-20.0 [facility] Comment on above: Result Comment: Trou gh (immediately following transplant) 15.0 . Trough (steady state, 2 weeks or more after transplant): 3.0 - 8.0 . Performed by LC-MS/MS technology. Performed By: #### D DAVIDSON, MG, PHOS, CMP, LIPID, URIC #### [facility] [address] [place] [address] Dr. Sarmad Patino BK VIRUS PCR QUANTon 023 BKV DNA QUANT PCR PLASMA Negative Normal Negative [facility] Comment on above: Result Comment: No B K DNA detected. . The linear range of the assay is 22 - 100,000,000 IU/mL. Performed By: #### B KVIRUS #### [facility] [address] [place] [address] Dr. Sarmad Patino Log10 BKV DNA Plasma Normal [facility] Comment on above: Performed By: #### B KVIRUS #### [facility] [address] [place] [address] Dr. Sarmad Patino BILIRUBIN CONJUGATED (DIRECT )on 06-10-2022 BILI, CONJUGATED 0.1 mg/dL Normal 0.0-0.2 [facility] Comment on above: Performed By: #### U MAXI, LIPID, MG, CMP, DBIL, PHOS #### [facility] [address] [place] [address] Dr. Sarmad Patino GLYCOHEMOGLOBIN A1Con 2022 ADA RECOMMENDATION SEE BELOW Normal [facility] Comment on above: Result Comment: ADA RECOMMENDED LIMIT 4.0 - 6.0 ADA THERAPEUTIC TARGET < 7.0 ACTION SUGGESTED > 7.0 Performed By: #### D DAVIDSON, MG, PHOS, CMP, LIPID, URIC #### [facility] [address] [place] [address] Dr. Sarmad Patino Glucose [Mass/Vol] 114 mg/dL Normal [facility] Comment on above: Performed By: #### D DAVIDSON, MG, PHOS, CMP, LIPID, URIC #### [facility] [address] [place] [address] Dr. Sarmad Patino HbA1c (Bld) [Mass fraction] 5.6 % Normal 4.5-6.2 [facility] Comment on above: Performed By: #### D DAVIDSON, MG, PHOS, CMP, LIPID, URIC #### [facility] [address] [place] [address] Dr. Sarmad Patino MAGNESIUMon 06-10-2022 Magnesium [Mass/Vol] 1.6 mg/dL Critically low 1.8-2.4 [facility] Comment on above: Performed By: #### U MAXI, LIPID, MG, CMP, DBIL, PHOS #### [facility] [address] [place] [address] Dr. Sarmad Patino PROF 14(COMP METB)on 023 Albumin [Mass/Vol] 3.7 g/dL Normal 3.4-5.0 [facility] Comment on above: Performed By: #### U MAXI, LIPID, MG, CMP, DBIL, PHOS #### [facility] [address] [address] [address] Sarmad Patino Albumin/Globulin [Mass ratio] 1.1 {ratio} Normal [facility] Comment on above: Performed By: #### U MAXI, LIPID, MG, CMP, DBIL, PHOS #### [facility] [address] [place] [address] Dr. Sarmad Patino ALP [Catalytic activity/Vol] 142 U/L Critically high 46-116 [facility] Comment on above: Performed By: #### U MAXI, LIPID, MG, CMP, DBIL, PHOS #### [facility] [address] [place] [address] Dr. Sarmad Patino ALT [Catalytic activity/Vol] 29 U/L Normal 14-59 [facility] Comment on above: Performed By: #### U MAXI, LIPID, MG, CMP, DBIL, PHOS #### [facility] [address] [place] [address] Dr. Sarmad Patino Anion gap [Moles/Vol] 11.1 mmol/L Normal [facility] Comment on above: Performed By: #### U MAXI, LIPID, MG, CMP, DBIL, PHOS #### [facility] [address] [place] [address] Dr. Sarmad Patino AST [Catalytic activity/Vol] 19 U/L Normal 15-37 [facility] Comment on above: Performed By: #### U MAXI, LIPID, MG, CMP, DBIL, PHOS #### [facility] [address] [place] [address] Dr. Sarmad Patino Bilirubin [Mass/Vol] 0.6 mg/dL Normal 0.2-1.0 [facility] Comment on above: Performed By: #### U MAXI, LIPID, MG, CMP, DBIL, PHOS #### [facility] [address] [place] [address] Dr. Sarmad Ptaino Calcium [Mass/Vol] 9.8 mg/dL Normal 8.5-10.1 [facility] Comment on above: Performed By: #### U MAXI, LIPID, MG, CMP, DBIL, PHOS #### [facility] [address] [address] [address] Sarmad Patino Chloride [Moles/Vol] 103 mmol/L Normal 98-107 [facility] Comment on above: Performed By: #### U MAXI, LIPID, MG, CMP, DBIL, PHOS #### [facility] [address] [address] [address] Sarmad Patino CO2 [Moles/Vol] 30.7 mmol/L Normal 21.0-32.0 [facility] Comment on above: Performed By: #### U MAXI, LIPID, MG, CMP, DBIL, PHOS #### [facility] [address] [place] [address] Dr. Sarmad Patino Creatinine [Mass/Vol] 0.79 mg/dL Normal 0.55-1.02 [facility] Comment on above: Performed By: #### U MAXI, LIPID, MG, CMP, DBIL, PHOS #### [facility] [address] [address] [address] Sarmad Patino EGFR-AF [place] >60 Normal >=60 [facility] Comment on above: Performed By: #### U MAXI, LIPID, MG, CMP, DBIL, PHOS #### [facility] [address] [place] [address] Dr. Sarmad Patino EGFR-NON AF [place] >60 Normal >=60 [facility] Comment on above: Performed By: #### U MAXI, LIPID, MG, CMP, DBIL, PHOS #### [facility] [address] [address] [address] Sarmad Patino Globulin (S) [Mass/Vol] 3.4 g/dL Normal [facility] Comment on above: Performed By: #### U MAXI, LIPID, MG, CMP, DBIL, PHOS #### [facility] [address] [address] [address] Sarmad Patino Glucose [Mass/Vol] 94 mg/dL Normal 74-106 [facility] Comment on above: Performed By: #### U MAXI, LIPID, MG, CMP, DBIL, PHOS #### [facility] [address] [place] [address] Dr. Sarmad Patino Potassium [Moles/Vol] 3.8 mmol/L Normal 3.5-5.1 [facility] Comment on above: Performed By: #### U MAXI, LIPID, MG, CMP, DBIL, PHOS #### [facility] [address] [place] [address] Dr. Sarmad Patino Protein [Mass/Vol] 7.1 g/dL Normal 6.4-8.2 [facility] Comment on above: Performed By: #### U MAXI, LIPID, MG, CMP, DBIL, PHOS #### [facility] [address] [place] [address] Dr. Sarmad Patino Sodium [Moles/Vol] 141 mmol/L Normal 136-145 [facility] Comment on above: Performed By: #### U MAXI, LIPID, MG, CMP, DBIL, PHOS #### [facility] [address] [place] [address] Dr. Sarmad Patino Urea nitrogen [Mass/Vol] 17.0 mg/dL Normal 7.0-18.0 [facility] Comment on above: Performed By: #### U MAXI, LIPID, MG, CMP, DBIL, PHOS #### [facility] [address] [place] [address] Dr. Sarmad Patino Urea nitrogen/Creatinine [Mass ratio] 21.5 mg/mg Normal [facility] Comment on above: Performed By: #### U MAXI, LIPID, MG, CMP, DBIL, PHOS #### [facility] [address] [place] [address] Dr. Sarmad Patino URIC ACID SERUMon 06-10-2022 Urate [Mass/Vol] 5.1 mg/dL Normal 2.6-6.0 [facility] Comment on above: Performed By: #### U MAXI, LIPID, MG, CMP, DBIL, PHOS #### [facility] [address] [place] [address] Dr. Sarmad Patino BK VIRUS PCR QUANTon 023 BKV DNA QUANT PCR PLASMA Negative Normal Negative [facility] Comment on above: Result Comment: No B K DNA detected. . The linear range of the assay is 22 - 100,000,000 IU/mL. Performed By: #### U MAXI, LIPID, MG, CMP, DBIL, PHOS #### [facility] [address] [place] [address] Dr. Sarmad Patino Log10 BKV DNA Plasma Normal [facility] Comment on above: Performed By: #### U MAXI, LIPID, MG, CMP, DBIL, PHOS #### [facility] [address] [address] [address] Sarmad Patino FK506 (TACROLIMUS) WHOLE BLO ODon 05-13-2022 Tacrolimus (FK506), Blood 4.1 ng/mL Normal 2.0-20.0 [facility] Comment on above: Result Comment: Trou gh (immediately following transplant) 15.0 . Trough (steady state, 2 weeks or more after transplant): 3.0 - 8.0 . Performed by LC-MS/MS technology. Performed By: #### U MAXI, LIPID, MG, CMP, DBIL, PHOS #### [facility] [address] [place] [address] Dr. Sarmad Patino BILIRUBIN CONJUGATED (DIRECT )on 05-10-2022 BILI, CONJUGATED 0.1 mg/dL Normal 0.0-0.2 [facility] Comment on above: Performed By: #### D DAVIDSON, MG, PHOS, CMP, LIPID, URIC #### [facility] [address] [address] [address] Sarmad Patino GLYCOHEMOGLOBIN A1Con 2022 ADA RECOMMENDATION SEE BELOW Normal [facility] Comment on above: Result Comment: ADA RECOMMENDED LIMIT 4.0 - 6.0 ADA THERAPEUTIC TARGET < 7.0 ACTION SUGGESTED > 7.0 Performed By: #### D DAVIDSON, MG, PHOS, CMP, LIPID, URIC #### [facility] [address] [place] [address] Dr. Sarmad Patino Glucose [Mass/Vol] 108 mg/dL Normal [facility] Comment on above: Performed By: #### D DAVIDSON, MG, PHOS, CMP, LIPID, URIC #### [facility] [address] [address] [address] Sarmad Patino HbA1c (Bld) [Mass fraction] 5.4 % Normal 4.5-6.2 [facility] Comment on above: Performed By: #### D DAVIDSON, MG, PHOS, CMP, LIPID, URIC #### [facility] [address] [address] [address] Sarmad Patino MAGNESIUMon 05-10-2022 Magnesium [Mass/Vol] 1.9 mg/dL Normal 1.8-2.4 [facility] Comment on above: Performed By: #### U MAXI, LIPID, MG, CMP, DBIL, PHOS #### [facility] [address] [place] [address] Dr. Sarmad Patino PROF 14(COMP METB)on 023 Albumin [Mass/Vol] 3.9 g/dL Normal 3.4-5.0 [facility] Comment on above: Performed By: #### D DAVIDSON, MG, PHOS, CMP, LIPID, URIC #### [facility] [address] [place] [address] Dr. Sarmad Patino Albumin/Globulin [Mass ratio] 1.2 {ratio} Normal [facility] Comment on above: Performed By: #### D DAVIDSON, MG, PHOS, CMP, LIPID, URIC #### [facility] [address] [place] [address] Dr. Sarmad Patino ALP [Catalytic activity/Vol] 114 U/L Normal 46-116 [facility] Comment on above: Performed By: #### D DAVIDSON, MG, PHOS, CMP, LIPID, URIC #### [facility] [address] [place] [address] Dr. Sarmad Patino ALT [Catalytic activity/Vol] 18 U/L Normal 14-59 [facility] Comment on above: Performed By: #### D DAVIDSON, MG, PHOS, CMP, LIPID, URIC #### [facility] [address] [place] [address] Dr. Sarmad Patino Anion gap [Moles/Vol] 15.9 mmol/L Normal [facility] Comment on above: Performed By: #### D DAVIDSON, MG, PHOS, CMP, LIPID, URIC #### [facility] [address] [address] [address] Sarmad Patino AST [Catalytic activity/Vol] 17 U/L Normal 15-37 [facility] Comment on above: Performed By: #### D DAVIDSON, MG, PHOS, CMP, LIPID, URIC #### [facility] [address] [place] [address] Dr. Sarmad Patino Bilirubin [Mass/Vol] 0.4 mg/dL Normal 0.2-1.0 [facility] Comment on above: Performed By: #### D DAVIDSON, MG, PHOS, CMP, LIPID, URIC #### [facility] [address] [place] [address] Dr. Sarmad Patino Calcium [Mass/Vol] 9.8 mg/dL Normal 8.5-10.1 [facility] Comment on above: Performed By: #### D DAVIDSON, MG, PHOS, CMP, LIPID, URIC #### [facility] [address] [place] [address] Dr. Sarmad Patino Chloride [Moles/Vol] 103 mmol/L Normal 98-107 [facility] Comment on above: Performed By: #### D DAVIDSON, MG, PHOS, CMP, LIPID, URIC #### [facility] [address] [place] [address] Dr. Sarmad Patino CO2 [Moles/Vol] 29.2 mmol/L Normal 21.0-32.0 [facility] Comment on above: Performed By: #### D DAVIDSON, MG, PHOS, CMP, LIPID, URIC #### [facility] [address] [place] [address] Dr. Sarmad Patino Creatinine [Mass/Vol] 0.74 mg/dL Normal 0.55-1.02 [facility] Comment on above: Performed By: #### D DAVIDSON, MG, PHOS, CMP, LIPID, URIC #### [facility] [address] [place] [address] Dr. Sarmad Patino EGFR-AF [place] >60 Normal >=60 [facility] Comment on above: Performed By: #### D DAVIDSON, MG, PHOS, CMP, LIPID, URIC #### [facility] [address] [address] [address] Sarmad Patino EGFR-NON AF [place] >60 Normal >=60 [facility] Comment on above: Performed By: #### D DAVIDSON, MG, PHOS, CMP, LIPID, URIC #### [facility] [address] [address] [address] Sarmad Patino Globulin (S) [Mass/Vol] 3.2 g/dL Normal [facility] Comment on above: Performed By: #### D DAVIDSON, MG, PHOS, CMP, LIPID, URIC #### [facility] [address] [address] [address] Sarmad Patino Glucose [Mass/Vol] 94 mg/dL Normal 74-106 [facility] Comment on above: Performed By: #### D DAVIDSON, MG, PHOS, CMP, LIPID, URIC #### [facility] [address] [address] [address] Sarmad Patino Potassium [Moles/Vol] 4.1 mmol/L Normal 3.5-5.1 [facility] Comment on above: Performed By: #### D DAVIDSON, MG, PHOS, CMP, LIPID, URIC #### [facility] [address] [address] [address] Sarmad Patino Protein [Mass/Vol] 7.1 g/dL Normal 6.4-8.2 [facility] Comment on above: Performed By: #### D DAVIDSON, MG, PHOS, CMP, LIPID, URIC #### [facility] [address] [address] [address] Sarmad Patino Sodium [Moles/Vol] 144 mmol/L Normal 136-145 [facility] Comment on above: Performed By: #### D DAVIDSON, MG, PHOS, CMP, LIPID, URIC #### [facility] [address] [address] [address] Sarmad Patino Urea nitrogen [Mass/Vol] 18.0 mg/dL Normal 7.0-18.0 [facility] Comment on above: Performed By: #### D DAVIDSON, MG, PHOS, CMP, LIPID, URIC #### [facility] [address] [place] [address] Dr. Sarmad Patino Urea nitrogen/Creatinine [Mass ratio] 24.3 mg/mg Normal [facility] Comment on above: Performed By: #### D DAVIDSON, MG, PHOS, CMP, LIPID, URIC #### [facility] [address] [place] [address] Dr. Sarmad Patino URIC ACID SERUMon 05-10-2022 Urate [Mass/Vol] 5.1 mg/dL Normal 2.6-6.0 [facility] Comment on above: Performed By: #### U MAXI, LIPID, MG, CMP, DBIL, PHOS #### [facility] [address] [place] [address] Dr. Sarmad Patino MYCOPHENOLIC ACIDon 04-17-19 Mycophenolic Acid 1.2 ug/mL Normal 1.0-3.5 [facility] Comment on above: Performed By: #### D DAVIDSON, MG, PHOS, CMP, LIPID, URIC #### [facility] [address] [place] [address] Dr. Sarmad Patino Mycophenolic Acid Glucuronide 37 ug/mL Normal 15-125 [facility] Comment on above: Result Comment: [facility] 's Reference Range: 35-100 mcg/mL. Performed By: #### D DAVIDSON, MG, PHOS, CMP, LIPID, URIC #### [facility] [address] [place] [address] Dr. Sarmad Patino FK506 (TACROLIMUS) WHOLE BLO ODon 04-10-2022 Tacrolimus (FK506), Blood 4.2 ng/mL Normal 2.0-20.0 [facility] Comment on above: Result Comment: Trou gh (immediately following transplant) 15.0 . Trough (steady state, 2 weeks or more after transplant): 3.0 - 8.0 . Performed by LC-MS/MS technology. Performed By: #### D DAVIDSON, MG, PHOS, CMP, LIPID, URIC #### [facility] [address] [place] [address] Dr. Sarmad Patino BILIRUBIN CONJUGATED (DIRECT )on 04-08-2022 BILI, CONJUGATED 0.1 mg/dL Normal 0.0-0.2 [facility] Comment on above: Performed By: #### U MAXI, LIPID, MG, CMP, DBIL, PHOS #### [facility] [address] [place] [address] Dr. Sarmad Patino CBC AUTO DIFFon 04-08-2022 BASO # 0.0 103/ul Normal 0.0-0.1 [facility] Comment on above: Performed By: #### D DAVIDSON, MG, PHOS, CMP, LIPID, URIC #### [facility] [address] [place] [address] Dr. Sarmad Patino Basophils/100 WBC (Bld) 0.3 % Normal 0.2-2.0 [facility] Comment on above: Performed By: #### D DAVIDSON, MG, PHOS, CMP, LIPID, URIC #### [facility] [address] [place] [address] Dr. Sarmad Patino EO # 0.1 103/ul Normal 0.0-0.7 [facility] Comment on above: Performed By: #### D DAVIDSON, MG, PHOS, CMP, LIPID, URIC #### [facility] [address] [place] [address] Dr. Sarmad Patino Eosinophils/100 WBC (Bld) 1.4 % Normal 0.9-7.0 [facility] Comment on above: Performed By: #### D DAVIDSON, MG, PHOS, CMP, LIPID, URIC #### [facility] [address] [place] [address] Dr. Sarmad Patino Erythrocyte distribution width (RBC) [Ratio] 15.8 % Critically high 11.0-15.0 [facility] Comment on above: Performed By: #### D DAVIDSON, MG, PHOS, CMP, LIPID, URIC #### [facility] [address] [place] [address] Dr. Sarmad Patino Hematocrit (Bld) [Volume fraction] 43.0 % Normal 36.0-48.0 [facility] Comment on above: Performed By: #### D DAVIDSON, MG, PHOS, CMP, LIPID, URIC #### [facility] [address] [place] [address] Dr. Sarmad Patino Hemoglobin (Bld) [Mass/Vol] 15.0 g/dL Normal 12.0-16.0 [facility] Comment on above: Performed By: #### D DAVIDSON, MG, PHOS, CMP, LIPID, URIC #### [facility] [address] [address] [address] Sarmad Patino IG # 0.01 10e3/ul Normal 0.00-0.03 [facility] Comment on above: Performed By: #### D DAVIDSON, MG, PHOS, CMP, LIPID, URIC #### [facility] [address] [place] [address] Dr. Sarmad Patino IG % 0.1 % Normal 0.0-0.5 [facility] Comment on above: Performed By: #### D DAVIDSON, MG, PHOS, CMP, LIPID, URIC #### [facility] [address] [place] [address] Dr. Sarmad Patino LYMPH # 1.3 103/ul Normal 1.2-3.8 [facility] Comment on above: Performed By: #### D DAVIDSON, MG, PHOS, CMP, LIPID, URIC #### [facility] [address] [place] [address] Dr. Sarmad Patino Lymphocytes/100 WBC (Bld) 18.3 % Critically low 20.5-60.0 [facility] Comment on above: Performed By: #### D DAVIDSON, MG, PHOS, CMP, LIPID, URIC #### [facility] [address] [address] [address] Sarmad Patino MANUAL DIFF REQ NO Normal [facility] Comment on above: Performed By: #### D DAVIDSON, MG, PHOS, CMP, LIPID, URIC #### [facility] [address] [place] [address] Dr. Sarmad Patino MCH (RBC) [Entitic mass] 29.7 pg Normal 26.7-34.0 [facility] Comment on above: Performed By: #### D DAVIDSON, MG, PHOS, CMP, LIPID, URIC #### [facility] [address] [place] [address] Dr. Sarmad Patino MCHC (RBC) [Mass/Vol] 34.9 g/dL Normal 29.9-35.2 [facility] Comment on above: Performed By: #### D DAVIDSON, MG, PHOS, CMP, LIPID, URIC #### [facility] [address] [place] [address] Dr. Sarmad Patino MCV (RBC) [Entitic vol] 85.1 fL Normal 81.0-99.0 [facility] Comment on above: Performed By: #### D DAVIDSON, MG, PHOS, CMP, LIPID, URIC #### [facility] [address] [place] [address] Dr. Sarmad Patino MONO # 0.7 103/ul Normal 0.3-0.8 [facility] Comment on above: Performed By: #### D DAVIDSON, MG, PHOS, CMP, LIPID, URIC #### [facility] [address] [place] [address] Dr. Sarmad Patino Monocytes/100 WBC (Bld) 9.8 % Normal 1.7-12.0 [facility] Comment on above: Performed By: #### D DAVIDSON, MG, PHOS, CMP, LIPID, URIC #### [facility] [address] [place] [address] Dr. Sarmad Patino NEUT # 5.1 103/ul Normal 1.4-6.5 [facility] Comment on above: Performed By: #### D DAVIDSON, MG, PHOS, CMP, LIPID, URIC #### [facility] [address] [place] [address] Dr. Sarmad Patino Neutrophils/100 WBC (Bld) 70.1 % Normal 43.0-75.0 [facility] Comment on above: Performed By: #### D DAVIDSON, MG, PHOS, CMP, LIPID, URIC #### [facility] [address] [place] [address] Dr. Sarmad Patino Platelet mean volume (Bld) [Entitic vol] 10.4 fL Normal 9.5-13.5 [facility] Comment on above: Performed By: #### D DAVIDSON, MG, PHOS, CMP, LIPID, URIC #### [facility] [address] [address] [address] Sarmad Patino PLT 229 103/ul Normal 150-450 [facility] Comment on above: Performed By: #### D DAVIDSON, MG, PHOS, CMP, LIPID, URIC #### [facility] [address] [address] [address] Sarmad Patino RBC 5.05 106/ul Normal 4.20-5.40 [facility] Comment on above: Performed By: #### D DAVIDSON, MG, PHOS, CMP, LIPID, URIC #### [facility] [address] [place] [address] Dr. Sarmad Patino WBC 7.2 103/ul Normal 4.0-11.0 [facility] Comment on above: Performed By: #### D DAVIDSON, MG, PHOS, CMP, LIPID, URIC #### [facility] [address] [place] [address] Dr. Sarmad Patino LIPID PROFILEon 04-08-2022 CHOL-HDL RATIO NORM SEE BELOW Normal [facility] Comment on above: Result Comment: 3.3 - 4.4 LOW RISK 4.4 - 7.1 AVERAGE RISK 7.1 - 11.0 MODERATE RISK >11.0 HIGH RISK Performed By: #### U MAXI, LIPID, MG, CMP, DBIL, PHOS #### [facility] [address] [place] [address] Dr. Sarmad Patino Cholesterol [Mass/Vol] 134 mg/dL Normal <=200 [facility] Comment on above: Performed By: #### U MAXI, LIPID, MG, CMP, DBIL, PHOS #### [facility] [address] [place] [address] Dr. Sarmad Patino Cholesterol in HDL [Mass/Vol] 55 mg/dL Normal 40-60 [facility] Comment on above: Performed By: #### U MAXI, LIPID, MG, CMP, DBIL, PHOS #### [facility] [address] [address] [address] Sarmad Patino Cholesterol in LDL [Mass/Vol] 56.6 mg/dL Normal [facility] Comment on above: Performed By: #### U MAXI, LIPID, MG, CMP, DBIL, PHOS #### [facility] [address] [address] [address] Sarmad Patino Cholesterol.total/C holesterol in HDL [Mass ratio] 2.4 {ratio} Normal [facility] Comment on above: Performed By: #### U MAXI, LIPID, MG, CMP, DBIL, PHOS #### [facility] [address] [address] [address] Sarmad Patino HDL NORMAL > or = 60 mg/dl - LO W CARDIOVASCULAR RISK <40 mg/dl - HIGH CARDIOVASCULAR RISK Normal [facility] Comment on above: Performed By: #### U MAXI, LIPID, MG, CMP, DBIL, PHOS #### [facility] [address] [address] [address] Sarmad Patino LDL CALC NORMAL SEE BELOW Normal [facility] Comment on above: Result Comment: <100 mg/dl OPTIMAL 100 - 129 mg/dl NEAR OR ABOVE OPTIMAL 130 - 159 mg/dl BORDERLINE HIGH 160 - 189 mg/dl HIGH >190 mg/dl VERY HIGH Performed By: #### U MAXI, LIPID, MG, CMP, DBIL, PHOS #### [facility] [address] [address] [address] Sarmad Patino Triglyceride [Mass/Vol] 112 mg/dL Normal <=150 [facility] Comment on above: Performed By: #### U MAXI, LIPID, MG, CMP, DBIL, PHOS #### [facility] [address] [address] [address] Sarmad Patino VLDL CALC 22.4 mg/dL Normal [facility] Comment on above: Performed By: #### U MAXI, LIPID, MG, CMP, DBIL, PHOS #### [facility] [address] [address] [address] Sarmad Patino MAGNESIUMon 04-08-2022 Magnesium [Mass/Vol] 1.8 mg/dL Normal 1.8-2.4 [facility] Comment on above: Performed By: #### U MAXI, LIPID, MG, CMP, DBIL, PHOS #### [facility] [address] [place] [address] Dr. Sarmad Patino PHOSPHORUSon 04-08-2022 Phosphate [Mass/Vol] 3.9 mg/dL Normal 2.6-4.7 [facility] Comment on above: Performed By: #### U MAXI, LIPID, MG, CMP, DBIL, PHOS #### [facility] [address] [place] [address] Dr. Sarmad Patino PROF 14(COMP METB)on 023 Albumin [Mass/Vol] 4.0 g/dL Normal 3.4-5.0 [facility] Comment on above: Performed By: #### U MAXI, LIPID, MG, CMP, DBIL, PHOS #### [facility] [address] [place] [address] Dr. Sarmad Patino Albumin/Globulin [Mass ratio] 1.3 {ratio} Normal [facility] Comment on above: Performed By: #### U MAXI, LIPID, MG, CMP, DBIL, PHOS #### [facility] [address] [place] [address] Dr. Sarmad Patino ALP [Catalytic activity/Vol] 108 U/L Normal 46-116 [facility] Comment on above: Performed By: #### U MAXI, LIPID, MG, CMP, DBIL, PHOS #### [facility] [address] [place] [address] Dr. Sarmad Patino ALT [Catalytic activity/Vol] 15 U/L Normal 14-59 [facility] Comment on above: Performed By: #### U MAXI, LIPID, MG, CMP, DBIL, PHOS #### [facility] [address] [place] [address] Dr. Sarmad Patino Anion gap [Moles/Vol] 14.3 mmol/L Normal [facility] Comment on above: Performed By: #### U MAXI, LIPID, MG, CMP, DBIL, PHOS #### [facility] [address] [place] [address] Dr. Sarmad Patino AST [Catalytic activity/Vol] 15 U/L Normal 15-37 [facility] Comment on above: Performed By: #### U MAXI, LIPID, MG, CMP, DBIL, PHOS #### [facility] [address] [place] [address] Dr. Sarmad Patino Bilirubin [Mass/Vol] 0.5 mg/dL Normal 0.2-1.0 [facility] Comment on above: Performed By: #### U MAXI, LIPID, MG, CMP, DBIL, PHOS #### [facility] [address] [place] [address] Dr. Sarmad Patino Calcium [Mass/Vol] 9.7 mg/dL Normal 8.5-10.1 [facility] Comment on above: Performed By: #### U MAXI, LIPID, MG, CMP, DBIL, PHOS #### [facility] [address] [place] [address] Dr. Sarmad Patino Chloride [Moles/Vol] 105 mmol/L Normal 98-107 [facility] Comment on above: Performed By: #### U MAXI, LIPID, MG, CMP, DBIL, PHOS #### [facility] [address] [place] [address] Dr. Sarmad Patino CO2 [Moles/Vol] 26.6 mmol/L Normal 21.0-32.0 [facility] Comment on above: Performed By: #### U MAXI, LIPID, MG, CMP, DBIL, PHOS #### [facility] [address] [place] [address] Dr. Sarmad Patino Creatinine [Mass/Vol] 0.80 mg/dL Normal 0.55-1.02 [facility] Comment on above: Performed By: #### U MAXI, LIPID, MG, CMP, DBIL, PHOS #### [facility] [address] [place] [address] Dr. Sarmad Patino EGFR-AF [place] >60 Normal >=60 [facility] Comment on above: Performed By: #### U MAXI, LIPID, MG, CMP, DBIL, PHOS #### [facility] [address] [place] [address] Dr. Sarmad Patino EGFR-NON AF [place] >60 Normal >=60 [facility] Comment on above: Performed By: #### U MAXI, LIPID, MG, CMP, DBIL, PHOS #### [facility] [address] [place] [address] Dr. Sarmad Patino Globulin (S) [Mass/Vol] 3.0 g/dL Normal [facility] Comment on above: Performed By: #### U MAXI, LIPID, MG, CMP, DBIL, PHOS #### [facility] [address] [place] [address] Dr. Sarmad Patino Glucose [Mass/Vol] 99 mg/dL Normal 74-106 [facility] Comment on above: Performed By: #### U MAXI, LIPID, MG, CMP, DBIL, PHOS #### [facility] [address] [place] [address] Dr. Sarmad Patino Potassium [Moles/Vol] 3.9 mmol/L Normal 3.5-5.1 [facility] Comment on above: Performed By: #### U MAXI, LIPID, MG, CMP, DBIL, PHOS #### [facility] [address] [place] [address] Dr. Sarmad Patino Protein [Mass/Vol] 7.0 g/dL Normal 6.4-8.2 [facility] Comment on above: Performed By: #### U MAXI, LIPID, MG, CMP, DBIL, PHOS #### [facility] [address] [place] [address] Dr. Sarmad Patino Sodium [Moles/Vol] 142 mmol/L Normal 136-145 [facility] Comment on above: Performed By: #### U MAXI, LIPID, MG, CMP, DBIL, PHOS #### [facility] [address] [place] [address] Dr. Sarmad Patino Urea nitrogen [Mass/Vol] 14.0 mg/dL Normal 7.0-18.0 [facility] Comment on above: Performed By: #### U MAXI, LIPID, MG, CMP, DBIL, PHOS #### [facility] [address] [address] [address] Sarmad Patino Urea nitrogen/Creatinine [Mass ratio] 17.5 mg/mg Normal [facility] Comment on above: Performed By: #### U MAXI, LIPID, MG, CMP, DBIL, PHOS #### [facility] [address] [address] [address] Sarmad Patino URIC ACID SERUMon 04-08-2022 Urate [Mass/Vol] 5.2 mg/dL Normal 2.6-6.0 [facility] Comment on above: Performed By: #### U MAXI, LIPID, MG, CMP, DBIL, PHOS #### [facility] [address] [address] [address] Sarmad Patino BK VIRUS PCR QUANTon 022 BKV DNA QUANT PCR PLASMA Negative Normal Negative [facility] Comment on above: Result Comment: No B K DNA detected. . The linear range of the assay is 22 - 100,000,000 IU/mL. Performed By: #### D DAVIDSON, MG, PHOS, CMP, LIPID, URIC #### [facility] [address] [address] [address] Sarmad Patino Log10 BKV DNA Plasma Normal [facility] Comment on above: Performed By: #### D DAVIDSON, MG, PHOS, CMP, LIPID, URIC #### [facility] [address] [address] [address] Sarmad Patino FK506 (TACROLIMUS) WHOLE BLO ODon 03-13-2022 Tacrolimus (FK506), Blood 5.0 ng/mL Normal 2.0-20.0 [facility] Comment on above: Result Comment: Trou gh (immediately following transplant) 15.0 . Trough (steady state, 2 weeks or more after transplant): 3.0 - 8.0 . Performed by LC-MS/MS technology. Performed By: #### D DAVIDSON, MG, PHOS, CMP, LIPID, URIC #### [facility] [address] [address] [address] Sarmad Patino GLYCOHEMOGLOBIN A1Con 2021 ADA RECOMMENDATION SEE BELOW Normal [facility] Comment on above: Result Comment: ADA RECOMMENDED LIMIT 4.0 - 6.0 ADA THERAPEUTIC TARGET < 7.0 ACTION SUGGESTED > 7.0 Performed By: #### D DAVIDSON, MG, PHOS, CMP, LIPID, URIC #### [facility] [address] [place] [address] Dr. Sarmad Patino Glucose [Mass/Vol] 111 mg/dL Normal [facility] Comment on above: Performed By: #### D DAVIDSON, MG, PHOS, CMP, LIPID, URIC #### [facility] [address] [place] [address] Dr. Sarmad Patino HbA1c (Bld) [Mass fraction] 5.5 % Normal 4.5-6.2 [facility] Comment on above: Performed By: #### D DAVIDSON, MG, PHOS, CMP, LIPID, URIC #### [facility] [address] [place] [address] Dr. Sarmad Patino LIVER PROFILEon 03-11-2022 Albumin [Mass/Vol] 3.7 g/dL Normal 3.4-5.0 [facility] Comment on above: Performed By: #### D DAVIDSON, MG, PHOS, CMP, LIPID, URIC #### [facility] [address] [place] [address] Dr. Sarmad Patino Albumin/Globulin [Mass ratio] 1.1 {ratio} Normal [facility] Comment on above: Performed By: #### D DAVIDSON, MG, PHOS, CMP, LIPID, URIC #### [facility] [address] [address] [address] Sarmad Patino ALP [Catalytic activity/Vol] 124 U/L Critically high 46-116 [facility] Comment on above: Performed By: #### D DAVIDSON, MG, PHOS, CMP, LIPID, URIC #### [facility] [address] [place] [address] Dr. Sarmad Patino ALT [Catalytic activity/Vol] 17 U/L Normal 14-59 [facility] Comment on above: Performed By: #### D DAVIDSON, MG, PHOS, CMP, LIPID, URIC #### [facility] [address] [place], [place] [id number] Dr. Sarmad Patino AST [Catalytic activity/Vol] 16 U/L Normal 15-37 [facility] Comment on above: Performed By: #### D DAVIDSON, MG, PHOS, CMP, LIPID, URIC #### [facility] [address] [place] [address] Dr. Sarmad Patino BILI, CONJUGATED 0.2 mg/dL Normal 0.0-0.2 [facility] Comment on above: Performed By: #### D DAVIDSON, MG, PHOS, CMP, LIPID, URIC #### [facility] [address] [place] [address] Dr. Sarmad Patino Bilirubin [Mass/Vol] 0.6 mg/dL Normal 0.2-1.0 [facility] Comment on above: Performed By: #### D DAVIDSON, MG, PHOS, CMP, LIPID, URIC #### [facility] [address] [place] [address] Dr. Sarmad Patino Globulin (S) [Mass/Vol] 3.4 g/dL Normal [facility] Comment on above: Performed By: #### D DAVIDSON, MG, PHOS, CMP, LIPID, URIC #### [facility] [address] [place] [address] Dr. Sarmad Patino Protein [Mass/Vol] 7.1 g/dL Normal 6.4-8.2 [facility] Comment on above: Performed By: #### D DAVIDSON, MG, PHOS, CMP, LIPID, URIC #### [facility] [address] [place] [address] Dr. Sarmad Patino MAGNESIUMon 03-11-2022 Magnesium [Mass/Vol] 1.6 mg/dL Critically low 1.8-2.4 [facility] Comment on above: Performed By: #### D DAVIDSON, MG, PHOS, CMP, LIPID, URIC #### [facility] [address] [place] [address] Dr. Sarmad Patino PHOSPHORUSon 03-11-2022 Phosphate [Mass/Vol] 3.5 mg/dL Normal 2.6-4.7 [facility] Comment on above: Performed By: #### D DAVIDSON, MG, PHOS, CMP, LIPID, URIC #### [facility] [address] [address] [address] Sarmad Patino URIC ACID SERUMon 03-11-2022 Urate [Mass/Vol] 5.3 mg/dL Normal 2.6-6.0 [facility] Comment on above: Performed By: #### D DAVIDSON, MG, PHOS, CMP, LIPID, URIC #### [facility] [address] [address] [address] Sarmad Patino MYCOPHENOLIC ACIDon 02-19-20 Mycophenolic Acid 1.5 ug/mL Normal 1.0-3.5 [facility] Comment on above: Performed By: #### D DAVIDSON, MG, PHOS, CMP, LIPID, URIC #### [facility] [address] [place] [address] Dr. Sarmad Patino Mycophenolic Acid Glucuronide 32 ug/mL Normal 15-125 [facility] Comment on above: Result Comment: [facility] 's Reference Range: 35-100 mcg/mL. Performed By: #### D DAVISDON, MG, PHOS, CMP, LIPID, URIC #### [facility] [address] [place] [address] Dr. Sarmad Patino BK VIRUS PCR QUANTon 022 BKV DNA QUANT PCR PLASMA Negative Normal Negative [facility] Comment on above: Result Comment: No B K DNA detected. . The linear range of the assay is 22 - 100,000,000 IU/mL. Performed By: #### D DAVIDSON, MG, PHOS, CMP, LIPID, URIC #### [facility] [address] [place] [address] Dr. Sarmad Patnio Log10 BKV DNA Plasma Normal [facility] Comment on above: Performed By: #### D DAVIDSON, MG, PHOS, CMP, LIPID, URIC #### [facility] [address] [place] [address] Dr. Sarmad Patino FK506 (TACROLIMUS) WHOLE BLO ODon 02-11-2022 Tacrolimus (FK506), Blood 4.4 ng/mL Normal 2.0-20.0 [facility] Comment on above: Result Comment: Trou gh (immediately following transplant) 15.0 . Trough (steady state, 2 weeks or more after transplant): 3.0 - 8.0 . Performed by LC-MS/MS technology. Performed By: #### U MAXI, LIPID, MG, CMP, DBIL, PHOS #### [facility] [address] [place] [address] Dr. Sarmad Patino BILIRUBIN CONJUGATED (DIRECT )on 02-08-2022 BILI, CONJUGATED 0.1 mg/dL Normal 0.0-0.2 [facility] Comment on above: Performed By: #### D DAVIDSON, MG, PHOS, CMP, LIPID, URIC #### [facility] [address] [place] [address] Dr. Sarmad Patino CBC AUTO DIFFon 02-08-2022 BASO # 0.0 103/ul Normal 0.0-0.1 [facility] Comment on above: Performed By: #### D DAVIDSON, MG, PHOS, CMP, LIPID, URIC #### [facility] [address] [place] [address] Dr. Sarmad Patino Basophils/100 WBC (Bld) 0.3 % Normal 0.2-2.0 [facility] Comment on above: Performed By: #### D DAVIDSON, MG, PHOS, CMP, LIPID, URIC #### [facility] [address] [place] [address] Dr. Sarmad Patino EO # 0.1 103/ul Normal 0.0-0.7 [facility] Comment on above: Performed By: #### D DAVIDSON, MG, PHOS, CMP, LIPID, URIC #### [facility] [address] [place] [address] Dr. Sarmad Patino Eosinophils/100 WBC (Bld) 1.0 % Normal 0.9-7.0 [facility] Comment on above: Performed By: #### D DAVIDSON, MG, PHOS, CMP, LIPID, URIC #### [facility] [address] [place] [address] Dr. Sarmad Patino Erythrocyte distribution width (RBC) [Ratio] 15.9 % Critically high 11.0-15.0 [facility] Comment on above: Performed By: #### D DAVIDSON, MG, PHOS, CMP, LIPID, URIC #### [facility] [address] [place] [address] Dr. Sarmad Patino Hematocrit (Bld) [Volume fraction] 42.2 % Normal 36.0-48.0 [facility] Comment on above: Performed By: #### D DAVIDSON, MG, PHOS, CMP, LIPID, URIC #### [facility] [address] [place] [address] Dr. Sarmad Patino Hemoglobin (Bld) [Mass/Vol] 13.8 g/dL Normal 12.0-16.0 [facility] Comment on above: Performed By: #### D DAVIDSON, MG, PHOS, CMP, LIPID, URIC #### [facility] [address] [place] [address] Dr. Sarmad Patino IG # 0.10 10e3/ul Critically high 0.00-0.03 [facility] Comment on above: Performed By: #### D DAVIDSON, MG, PHOS, CMP, LIPID, URIC #### [facility] [address] [place] [address] Dr. Sarmad Patino IG % 1.1 % Critically high 0.0-0.5 [facility] Comment on above: Performed By: #### D DAVIDSON, MG, PHOS, CMP, LIPID, URIC #### [facility] [address] [place] [address] Dr. Sarmad Patino LYMPH # 1.2 103/ul Normal 1.2-3.8 [facility] Comment on above: Performed By: #### D DAVIDSON, MG, PHOS, CMP, LIPID, URIC #### [facility] [address] [place] [address] Dr. Sarmad Patino Lymphocytes/100 WBC (Bld) 12.6 % Critically low 20.5-60.0 [facility] Comment on above: Performed By: #### D DAVIDSON, MG, PHOS, CMP, LIPID, URIC #### [facility] [address] [place] [address] Dr. Sarmad Patino MANUAL DIFF REQ NO Normal [facility] Comment on above: Performed By: #### D DAVIDSON, MG, PHOS, CMP, LIPID, URIC #### [facility] [address] [address] [address] Sarmad Patino MCH (RBC) [Entitic mass] 28.3 pg Normal 26.7-34.0 [facility] Comment on above: Performed By: #### D DAVIDSON, MG, PHOS, CMP, LIPID, URIC #### [facility] [address] [place] [address] Dr. Sarmad Patino MCHC (RBC) [Mass/Vol] 32.7 g/dL Normal 29.9-35.2 [facility] Comment on above: Performed By: #### D DAVIDSON, MG, PHOS, CMP, LIPID, URIC #### [facility] [address] [place] [address] Dr. Sarmad Patino MCV (RBC) [Entitic vol] 86.7 fL Normal 81.0-99.0 [facility] Comment on above: Performed By: #### D DAVIDSON, MG, PHOS, CMP, LIPID, URIC #### [facility] [address] [place] [address] Dr. Sarmad Patino MONO # 1.0 103/ul Critically high 0.3-0.8 [facility] Comment on above: Performed By: #### D DAVIDSON, MG, PHOS, CMP, LIPID, URIC #### [facility] [address] [place] [address] Dr. Sarmad Patino Monocytes/100 WBC (Bld) 10.7 % Normal 1.7-12.0 [facility] Comment on above: Performed By: #### D DAVIDSON, MG, PHOS, CMP, LIPID, URIC #### [facility] [address] [place] [address] Dr. Sarmad Patino NEUT # 6.9 103/ul Critically high 1.4-6.5 [facility] Comment on above: Performed By: #### D DAVIDSON, MG, PHOS, CMP, LIPID, URIC #### [facility] [address] [place] [address] Dr. Sarmad Patino Neutrophils/100 WBC (Bld) 74.3 % Normal 43.0-75.0 [facility] Comment on above: Performed By: #### D DAVIDSON, MG, PHOS, CMP, LIPID, URIC #### [facility] [address] [address] [address] Sarmad Patino Platelet mean volume (Bld) [Entitic vol] 11.1 fL Normal 9.5-13.5 [facility] Comment on above: Performed By: #### D DAVIDSON, MG, PHOS, CMP, LIPID, URIC #### [facility] [address] [address] [address] Sarmad Patino PLT 307 103/ul Normal 150-450 [facility] Comment on above: Performed By: #### D DAVIDSON, MG, PHOS, CMP, LIPID, URIC #### [facility] [address] [place] [address] Dr. Sarmad Patino RBC 4.87 106/ul Normal 4.20-5.40 [facility] Comment on above: Performed By: #### D DAVIDSON, MG, PHOS, CMP, LIPID, URIC #### [facility] [address] [address] [address] Sarmad Patino WBC 9.3 103/ul Normal 4.0-11.0 [facility] Comment on above: Performed By: #### D DAVIDSON, MG, PHOS, CMP, LIPID, URIC #### [facility] [address] [place] [address] Dr. Sarmad Patino GLYCOHEMOGLOBIN A1Con 2021 ADA RECOMMENDATION SEE BELOW Normal [facility] Comment on above: Result Comment: ADA RECOMMENDED LIMIT 4.0 - 6.0 ADA THERAPEUTIC TARGET < 7.0 ACTION SUGGESTED > 7.0 Performed By: #### D DAVIDSON, MG, PHOS, CMP, LIPID, URIC #### [facility] [address] [address] [address] Sarmad Patino Glucose [Mass/Vol] 134 mg/dL Normal [facility] Comment on above: Performed By: #### D DAVIDSON, MG, PHOS, CMP, LIPID, URIC #### [facility] [address] [place] [address] Dr. Sarmad Patino HbA1c (Bld) [Mass fraction] 6.3 % Critically high 4.5-6.2 [facility] Comment on above: Performed By: #### D DAVIDSON, MG, PHOS, CMP, LIPID, URIC #### [facility] [address] [address] [address] Sarmad Patino LIPID PROFILEon 02-08-2022 CHOL-HDL RATIO NORM SEE BELOW Normal [facility] Comment on above: Result Comment: 3.3 - 4.4 LOW RISK 4.4 - 7.1 AVERAGE RISK 7.1 - 11.0 MODERATE RISK >11.0 HIGH RISK Performed By: #### D DAVIDSON, MG, PHOS, CMP, LIPID, URIC #### [facility] [address] [address] [address] Sarmad Patino Cholesterol [Mass/Vol] 180 mg/dL Normal <=200 [facility] Comment on above: Performed By: #### D DAVIDSON, MG, PHOS, CMP, LIPID, URIC #### [facility] [address] [address] [address] Sarmad Patino Cholesterol in HDL [Mass/Vol] 58 mg/dL Normal 40-60 [facility] Comment on above: Performed By: #### D DAVIDSON, MG, PHOS, CMP, LIPID, URIC #### [facility] [address] [address] [address] Sarmad Patino Cholesterol in LDL [Mass/Vol] 86.6 mg/dL Normal [facility] Comment on above: Performed By: #### D DAVIDSON, MG, PHOS, CMP, LIPID, URIC #### [facility] [address] [address] [address] Sarmad Patino Cholesterol.total/C holesterol in HDL [Mass ratio] 3.1 {ratio} Normal [facility] Comment on above: Performed By: #### D DAVIDSON, MG, PHOS, CMP, LIPID, URIC #### [facility] [address] [address] [address] Sarmad Patino HDL NORMAL > or = 60 mg/dl - LO W CARDIOVASCULAR RISK <40 mg/dl - HIGH CARDIOVASCULAR RISK Normal [facility] Comment on above: Performed By: #### D DAVIDSON, MG, PHOS, CMP, LIPID, URIC #### [facility] [address] [address] [address] Sarmad Patino LDL CALC NORMAL SEE BELOW Normal [facility] Comment on above: Result Comment: <100 mg/dl OPTIMAL 100 - 129 mg/dl NEAR OR ABOVE OPTIMAL 130 - 159 mg/dl BORDERLINE HIGH 160 - 189 mg/dl HIGH >190 mg/dl VERY HIGH Performed By: #### D DAVIDSON, MG, PHOS, CMP, LIPID, URIC #### [facility] [address] [address] [address] Sarmad Patino Triglyceride [Mass/Vol] 177 mg/dL Critically high <=150 [facility] Comment on above: Performed By: #### D DAVIDSON, MG, PHOS, CMP, LIPID, URIC #### [facility] [address] [place] [address] Dr. Sarmad Patino VLDL CALC 35.4 mg/dL Normal [facility] Comment on above: Performed By: #### D DAVIDSON, MG, PHOS, CMP, LIPID, URIC #### [facility] [address] [place] [address] Dr. Sarmad Patino MAGNESIUMon 02-08-2022 Magnesium [Mass/Vol] 1.8 mg/dL Normal 1.8-2.4 [facility] Comment on above: Performed By: #### D DAVIDSON, MG, PHOS, CMP, LIPID, URIC #### [facility] [address] [place] [address] Dr. Sarmad Patino PHOSPHORUSon 02-08-2022 Phosphate [Mass/Vol] 3.3 mg/dL Normal 2.6-4.7 [facility] Comment on above: Performed By: #### D DAVIDSON, MG, PHOS, CMP, LIPID, URIC #### [facility] [address] [place] [address] Dr. Sarmad Patino PROF 14(COMP METB)on 022 Albumin [Mass/Vol] 3.8 g/dL Normal 3.4-5.0 [facility] Comment on above: Performed By: #### D DAVIDSON, MG, PHOS, CMP, LIPID, URIC #### [facility] [address] [place] [address] Dr. Sarmad Patino Albumin/Globulin [Mass ratio] 1.3 {ratio} Normal [facility] Comment on above: Performed By: #### D DAVIDSON, MG, PHOS, CMP, LIPID, URIC #### [facility] [address] [place] [address] Dr. Sarmad Patino ALP [Catalytic activity/Vol] 144 U/L Critically high 46-116 [facility] Comment on above: Performed By: #### D DAVIDSON, MG, PHOS, CMP, LIPID, URIC #### [facility] [address] [place] [address] Dr. Sarmad Patino ALT [Catalytic activity/Vol] 24 U/L Normal 14-59 [facility] Comment on above: Performed By: #### D DAVIDSON, MG, PHOS, CMP, LIPID, URIC #### [facility] [address] [place] [address] Dr. Sarmad Patino Anion gap [Moles/Vol] 13.7 mmol/L Normal [facility] Comment on above: Performed By: #### D DAVIDSON, MG, PHOS, CMP, LIPID, URIC #### [facility] [address] [place] [address] Dr. Sarmad Patino AST [Catalytic activity/Vol] 19 U/L Normal 15-37 [facility] Comment on above: Performed By: #### D DAVIDSON, MG, PHOS, CMP, LIPID, URIC #### [facility] [address] [place] [address] Dr. Sarmad Patino Bilirubin [Mass/Vol] 0.5 mg/dL Normal 0.2-1.0 [facility] Comment on above: Performed By: #### D DAVIDSON, MG, PHOS, CMP, LIPID, URIC #### [facility] [address] [place] [address] Dr. Sarmad Patino Calcium [Mass/Vol] 9.6 mg/dL Normal 8.5-10.1 [facility] Comment on above: Performed By: #### D DAVIDSON, MG, PHOS, CMP, LIPID, URIC #### [facility] [address] [address] [address] Sarmad Patino Chloride [Moles/Vol] 103 mmol/L Normal 98-107 [facility] Comment on above: Performed By: #### D DAVIDSON, MG, PHOS, CMP, LIPID, URIC #### [facility] [address] [address] [address] Sarmad Patino CO2 [Moles/Vol] 26.6 mmol/L Normal 21.0-32.0 [facility] Comment on above: Performed By: #### D DAVIDSON, MG, PHOS, CMP, LIPID, URIC #### [facility] [address] [address] [address] Sarmad Patino Creatinine [Mass/Vol] 0.75 mg/dL Normal 0.55-1.02 [facility] Comment on above: Performed By: #### D DAVIDSON, MG, PHOS, CMP, LIPID, URIC #### [facility] [address] [address] [address] Sarmad Patino EGFR-AF [place]ER >60 Normal >=60 [facility] Comment on above: Performed By: #### D DAVIDSON, MG, PHOS, CMP, LIPID, URIC #### [facility] [address] [place] [address] Dr. Sarmad Patino EGFR-NON AF [place]ER >60 Normal >=60 [facility] Comment on above: Performed By: #### D DAVIDSON, MG, PHOS, CMP, LIPID, URIC #### [facility] [address] [address] [address] Sarmad Patino Globulin (S) [Mass/Vol] 3.0 g/dL Normal [facility] Comment on above: Performed By: #### D DAVIDSON, MG, PHOS, CMP, LIPID, URIC #### [facility] [address] [place] [address] Dr. Sarmad Patino Glucose [Mass/Vol] 99 mg/dL Normal 74-106 [facility] Comment on above: Performed By: #### D DAVIDSON, MG, PHOS, CMP, LIPID, URIC #### [facility] [address] [place] [address] Dr. Sarmad Patino Potassium [Moles/Vol] 4.3 mmol/L Normal 3.5-5.1 [facility] Comment on above: Performed By: #### D DAVIDSON, MG, PHOS, CMP, LIPID, URIC #### [facility] [address] [place] [address] Dr. Sarmad Patino Protein [Mass/Vol] 6.8 g/dL Normal 6.4-8.2 [facility] Comment on above: Performed By: #### D DAVIDSON, MG, PHOS, CMP, LIPID, URIC #### [facility] [address] [place] [address] Dr. Sarmad Patino Sodium [Moles/Vol] 139 mmol/L Normal 136-145 [facility] Comment on above: Performed By: #### D DAVIDSON, MG, PHOS, CMP, LIPID, URIC #### [facility] [address] [place] [address] Dr. Sarmad Patino Urea nitrogen [Mass/Vol] 16.0 mg/dL Normal 7.0-18.0 [facility] Comment on above: Performed By: #### D DAVIDSON, MG, PHOS, CMP, LIPID, URIC #### [facility] [address] [place] [address] Dr. Sarmad Patino Urea nitrogen/Creatinine [Mass ratio] 21.3 mg/mg Normal [facility] Comment on above: Performed By: #### D DAVIDSON, MG, PHOS, CMP, LIPID, URIC #### [facility] [address] [place] [address] Dr. Sarmad Patino URIC ACID SERUMon 02-08-2022 Urate [Mass/Vol] 5.4 mg/dL Normal 2.6-6.0 [facility] Comment on above: Performed By: #### D DAVIDSON, MG, PHOS, CMP, LIPID, URIC #### [facility] [address] [place] [address] Dr. Sarmad Patino BK VIRUS PCR QUANTon 022 BKV DNA QUANT PCR PLASMA 27 IU/mL Normal Negative [facility] Comment on above: Result Comment: The linear range of the assay is 22 - 100,000,000 IU/mL. Performed By: #### D DAVIDSON, MG, PHOS, CMP, LIPID, URIC #### [facility] [address] [place] [address] Dr. Sarmad Patino Log10 BKV DNA Plasma 1.431 log10 IU/mL Normal [facility] Comment on above: Performed By: #### D DAVIDSON, MG, PHOS, CMP, LIPID, URIC #### [facility] [address] [place] [address] Dr. Sarmad Patino FK506 (TACROLIMUS) WHOLE BLO ODon 01-30-2022 Tacrolimus (FK506), Blood 6.5 ng/mL Normal 2.0-20.0 [facility] Comment on above: Result Comment: Trou gh (immediately following transplant) 15.0 . Trough (steady state, 2 weeks or more after transplant): 3.0 - 8.0 . Performed by LC-MS/MS technology. Performed By: #### D DAVIDSON, MG, PHOS, CMP, LIPID, URIC #### [facility] [address] [place] [address] Dr. Sarmad Patino RAPAMUNE(SIROLIMUS)on 2021 Rapamune(Sirolimus) , whole blood 9.9 ng/mL Normal 3.0-20.0 [facility] Comment on above: Result Comment: Perf ormed by LC/MS-MS technology . This test was developed and its performance characteristics determined by [employer]. It has not been cleared or approved by the Food and Drug Administration. Performed By: #### D DAVIDSON, MG, PHOS, CMP, LIPID, URIC #### [facility] [address] [place] [address] Dr. Sarmad Patino BILIRUBIN CONJUGATED (DIRECT )on 01-28-2022 BILI, CONJUGATED 0.1 mg/dL Normal 0.0-0.2 [facility] Comment on above: Performed By: #### D DAVIDSON, MG, PHOS, CMP, LIPID, URIC #### [facility] [address] [place] [address] Dr. Sarmad Patino CBC AUTO DIFFon 01-28-2022 BASO # 0.0 103/ul Normal 0.0-0.1 [facility] Comment on above: Performed By: #### D DAVIDSON, MG, PHOS, CMP, LIPID, URIC #### [facility] [address] [place] [address] Dr. Sarmad Patino Basophils/100 WBC (Bld) 0.3 % Normal 0.2-2.0 [facility] Comment on above: Performed By: #### D DAVIDSON, MG, PHOS, CMP, LIPID, URIC #### [facility] [address] [place] [address] Dr. Sarmad Patino EO # 0.2 103/ul Normal 0.0-0.7 [facility] Comment on above: Performed By: #### D DAVIDSON, MG, PHOS, CMP, LIPID, URIC #### [facility] [address] [place] [address] Dr. Sarmad Patino Eosinophils/100 WBC (Bld) 3.1 % Normal 0.9-7.0 [facility] Comment on above: Performed By: #### D DAVIDSON, MG, PHOS, CMP, LIPID, URIC #### [facility] [address] [place] [address] Dr. Sarmad Patino Erythrocyte distribution width (RBC) [Ratio] 15.4 % Critically high 11.0-15.0 [facility] Comment on above: Performed By: #### D DAVIDSON, MG, PHOS, CMP, LIPID, URIC #### [facility] [address] [place] [address] Dr. Sarmad Patino Hematocrit (Bld) [Volume fraction] 42.6 % Normal 36.0-48.0 [facility] Comment on above: Performed By: #### D DAVIDSON, MG, PHOS, CMP, LIPID, URIC #### [facility] [address] [place] [address] Dr. Sarmad Patino Hemoglobin (Bld) [Mass/Vol] 14.0 g/dL Normal 12.0-16.0 [facility] Comment on above: Performed By: #### D DAVIDSON, MG, PHOS, CMP, LIPID, URIC #### [facility] [address] [place] [address] Dr. Sarmad Patino IG # 0.05 10e3/ul Critically high 0.00-0.03 [facility] Comment on above: Performed By: #### D DAVIDSON, MG, PHOS, CMP, LIPID, URIC #### [facility] [address] [place] [address] Dr. Sarmad Patino IG % 0.7 % Critically high 0.0-0.5 [facility] Comment on above: Performed By: #### D DAVIDSON, MG, PHOS, CMP, LIPID, URIC #### [facility] [address] [place] [address] Dr. Sarmad Patino LYMPH # 1.1 103/ul Critically low 1.2-3.8 [facility] Comment on above: Performed By: #### D DAVIDSON, MG, PHOS, CMP, LIPID, URIC #### [facility] [address] [place] [address] Dr. Sarmad Patino Lymphocytes/100 WBC (Bld) 15.8 % Critically low 20.5-60.0 [facility] Comment on above: Performed By: #### D DAVIDSON, MG, PHOS, CMP, LIPID, URIC #### [facility] [address] [place] [address] Dr. Sarmad Patino MANUAL DIFF REQ NO Normal [facility] Comment on above: Performed By: #### D DAVIDSON, MG, PHOS, CMP, LIPID, URIC #### [facility] [address] [place] [address] Dr. Sarmad Patino MCH (RBC) [Entitic mass] 28.3 pg Normal 26.7-34.0 [facility] Comment on above: Performed By: #### D DAVIDSON, MG, PHOS, CMP, LIPID, URIC #### [facility] [address] [place] [address] Dr. Sarmad Patino MCHC (RBC) [Mass/Vol] 32.9 g/dL Normal 29.9-35.2 [facility] Comment on above: Performed By: #### D DAVIDSON, MG, PHOS, CMP, LIPID, URIC #### [facility] [address] [place], [place] [id number] Dr. Sarmad Patino MCV (RBC) [Entitic vol] 86.2 fL Normal 81.0-99.0 [facility] Comment on above: Performed By: #### D DAVIDSON, MG, PHOS, CMP, LIPID, URIC #### [facility] [address] [place] [address] Dr. Sarmad Patino MONO # 0.8 103/ul Normal 0.3-0.8 [facility] Comment on above: Performed By: #### D DAVIDSON, MG, PHOS, CMP, LIPID, URIC #### [facility] [address] [place] [address] Dr. Sarmad Patino Monocytes/100 WBC (Bld) 11.0 % Normal 1.7-12.0 [facility] Comment on above: Performed By: #### D DAVIDSON, MG, PHOS, CMP, LIPID, URIC #### [facility] [address] [place] [address] Dr. Sarmad Patino NEUT # 4.8 103/ul Normal 1.4-6.5 [facility] Comment on above: Performed By: #### D DAVIDSON, MG, PHOS, CMP, LIPID, URIC #### [facility] [address] [place] [address] Dr. Sarmad Patino Neutrophils/100 WBC (Bld) 69.1 % Normal 43.0-75.0 [facility] Comment on above: Performed By: #### D DAVIDSON, MG, PHOS, CMP, LIPID, URIC #### [facility] [address] [place] [address] Dr. Sarmad Patino Platelet mean volume (Bld) [Entitic vol] 10.8 fL Normal 9.5-13.5 [facility] Comment on above: Performed By: #### D DAVIDSON, MG, PHOS, CMP, LIPID, URIC #### [facility] [address] [place] [address] Dr. Sarmad Patino PLT 208 103/ul Normal 150-450 [facility] Comment on above: Performed By: #### D DAVIDSON, MG, PHOS, CMP, LIPID, URIC #### [facility] [address] [address] [address] Sarmad Patino RBC 4.94 106/ul Normal 4.20-5.40 [facility] Comment on above: Performed By: #### D DAVIDSON, MG, PHOS, CMP, LIPID, URIC #### [facility] [address] [address] [address] Sarmad Patino WBC 7.0 103/ul Normal 4.0-11.0 [facility] Comment on above: Performed By: #### D DAVIDSON, MG, PHOS, CMP, LIPID, URIC #### [facility] [address] [address] [address] Sarmad Patino GLYCOHEMOGLOBIN A1Con 2021 ADA RECOMMENDATION SEE BELOW Normal [facility] Comment on above: Result Comment: ADA RECOMMENDED LIMIT 4.0 - 6.0 ADA THERAPEUTIC TARGET < 7.0 ACTION SUGGESTED > 7.0 Performed By: #### D DAVIDSON, MG, PHOS, CMP, LIPID, URIC #### [facility] [address] [address] [address] Sarmad Patino Glucose [Mass/Vol] 137 mg/dL Normal [facility] Comment on above: Performed By: #### D DAVIDSON, MG, PHOS, CMP, LIPID, URIC #### [facility] [address] [place] [address] Dr. Sarmad Patino HbA1c (Bld) [Mass fraction] 6.4 % Critically high 4.5-6.2 [facility] Comment on above: Performed By: #### D DAVIDSON, MG, PHOS, CMP, LIPID, URIC #### [facility] [address] [place] [address] Dr. Sarmad Patino LIPID PROFILEon 01-28-2022 CHOL-HDL RATIO NORM SEE BELOW Normal [facility] Comment on above: Result Comment: 3.3 - 4.4 LOW RISK 4.4 - 7.1 AVERAGE RISK 7.1 - 11.0 MODERATE RISK >11.0 HIGH RISK Performed By: #### D DAVIDSON, MG, PHOS, CMP, LIPID, URIC #### [facility] [address] [place] [address] Dr. Sarmad Patino Cholesterol [Mass/Vol] 209 mg/dL Critically high <=200 [facility] Comment on above: Performed By: #### D DAVIDSON, MG, PHOS, CMP, LIPID, URIC #### [facility] [address] [address] [address] Sarmad Patino Cholesterol in HDL [Mass/Vol] 59 mg/dL Normal 40-60 [facility] Comment on above: Performed By: #### D DAVIDSON, MG, PHOS, CMP, LIPID, URIC #### [facility] [address] [address] [address] Sarmad Patino Cholesterol in LDL [Mass/Vol] 100.4 mg/dL Normal [facility] Comment on above: Performed By: #### D DAVIDSON, MG, PHOS, CMP, LIPID, URIC #### [facility] [address] [address] [address] Sarmad Patino Cholesterol.total/C holesterol in HDL [Mass ratio] 3.5 {ratio} Normal [facility] Comment on above: Performed By: #### D DAVIDSON, MG, PHOS, CMP, LIPID, URIC #### [facility] [address] [address] [address] Sarmad Patino HDL NORMAL > or = 60 mg/dl - LO W CARDIOVASCULAR RISK <40 mg/dl - HIGH CARDIOVASCULAR RISK Normal [facility] Comment on above: Performed By: #### D DAVIDSON, MG, PHOS, CMP, LIPID, URIC #### [facility] [address] [address] [address] Sarmad Patino LDL CALC NORMAL SEE BELOW Normal [facility] Comment on above: Result Comment: <100 mg/dl OPTIMAL 100 - 129 mg/dl NEAR OR ABOVE OPTIMAL 130 - 159 mg/dl BORDERLINE HIGH 160 - 189 mg/dl HIGH >190 mg/dl VERY HIGH Performed By: #### D DAVIDSON, MG, PHOS, CMP, LIPID, URIC #### [facility] [address] [address] [address] Sarmad Patino Triglyceride [Mass/Vol] 248 mg/dL Critically high <=150 [facility] Comment on above: Performed By: #### D DAVIDSON, MG, PHOS, CMP, LIPID, URIC #### [facility] [address] [address] [address] Sarmad Patino VLDL CALC 49.6 mg/dL Normal [facility] Comment on above: Performed By: #### D DAVIDSON, MG, PHOS, CMP, LIPID, URIC #### [facility] [address] [address] [address] Sarmad Patino MAGNESIUMon 01-28-2022 Magnesium [Mass/Vol] 1.6 mg/dL Critically low 1.8-2.4 [facility] Comment on above: Performed By: #### D DAVIDSON, MG, PHOS, CMP, LIPID, URIC #### [facility] [address] [place] [address] Dr. Sarmad Patino PHOSPHORUSon 01-28-2022 Phosphate [Mass/Vol] 2.7 mg/dL Normal 2.6-4.7 [facility] Comment on above: Performed By: #### D DAVIDSON, MG, PHOS, CMP, LIPID, URIC #### [facility] [address] [place] [address] Dr. Sarmad Patino PROF 14(COMP METB)on 022 Albumin [Mass/Vol] 3.3 g/dL Critically low 3.4-5.0 [facility] Comment on above: Performed By: #### D DAVIDSON, MG, PHOS, CMP, LIPID, URIC #### [facility] [address] [address] [address] Sarmad Patino Albumin/Globulin [Mass ratio] 0.9 {ratio} Normal [facility] Comment on above: Performed By: #### D DAVIDSON, MG, PHOS, CMP, LIPID, URIC #### [facility] [address] [address] [address] Sarmad Patino ALP [Catalytic activity/Vol] 124 U/L Critically high 46-116 [facility] Comment on above: Performed By: #### D DAVIDSON, MG, PHOS, CMP, LIPID, URIC #### [facility] [address] [address] [address] Sarmad Patino ALT [Catalytic activity/Vol] 28 U/L Normal 14-59 [facility] Comment on above: Performed By: #### D DAVIDSON, MG, PHOS, CMP, LIPID, URIC #### [facility] [address] [address] [address] Sarmad Patino Anion gap [Moles/Vol] 12.0 mmol/L Normal [facility] Comment on above: Performed By: #### D DAVIDSON, MG, PHOS, CMP, LIPID, URIC #### [facility] [address] [address] [address] Sarmad Patino AST [Catalytic activity/Vol] 20 U/L Normal 15-37 [facility] Comment on above: Performed By: #### D DAVIDSON, MG, PHOS, CMP, LIPID, URIC #### [facility] [address] [place] [address] Dr. Sarmad Patino Bilirubin [Mass/Vol] 0.5 mg/dL Normal 0.2-1.0 [facility] Comment on above: Performed By: #### D DAVIDSON, MG, PHOS, CMP, LIPID, URIC #### [facility] [address] [place] [address] Dr. Sarmad Patino Calcium [Mass/Vol] 9.1 mg/dL Normal 8.5-10.1 [facility] Comment on above: Performed By: #### D DAVIDSON, MG, PHOS, CMP, LIPID, URIC #### [facility] [address] [place] [address] Dr. Sarmad Patino Chloride [Moles/Vol] 104 mmol/L Normal 98-107 [facility] Comment on above: Performed By: #### D DAVIDSON, MG, PHOS, CMP, LIPID, URIC #### [facility] [address] [place] [address] Dr. Sarmad Patino CO2 [Moles/Vol] 25.7 mmol/L Normal 21.0-32.0 [facility] Comment on above: Performed By: #### D DAVIDSON, MG, PHOS, CMP, LIPID, URIC #### [facility] [address] [address] [address] Sarmad Patino Creatinine [Mass/Vol] 0.77 mg/dL Normal 0.55-1.02 [facility] Comment on above: Performed By: #### D DAVIDSON, MG, PHOS, CMP, LIPID, URIC #### [facility] [address] [address] [address] Sarmad Patino EGFR-AF [place] >60 Normal >=60 [facility] Comment on above: Performed By: #### D DAVIDSON, MG, PHOS, CMP, LIPID, URIC #### [facility] [address] [address] [address] Sarmad Patino EGFR-NON AF [place]ER >60 Normal >=60 [facility] Comment on above: Performed By: #### D DAVIDSON, MG, PHOS, CMP, LIPID, URIC #### [facility] [address] [address] [address] Sarmad Patino Globulin (S) [Mass/Vol] 3.7 g/dL Normal [facility] Comment on above: Performed By: #### D DAVIDSON, MG, PHOS, CMP, LIPID, URIC #### [facility] [address] [place] [address] Dr. Sarmad Patino Glucose [Mass/Vol] 108 mg/dL Critically high 74-106 [facility] Comment on above: Performed By: #### D DAVIDSON, MG, PHOS, CMP, LIPID, URIC #### [facility] [address] [place] [address] Dr. Sarmad Patino Potassium [Moles/Vol] 3.7 mmol/L Normal 3.5-5.1 [facility] Comment on above: Performed By: #### D DAVIDSON, MG, PHOS, CMP, LIPID, URIC #### [facility] [address] [address] [address] Sarmad Patino Protein [Mass/Vol] 7.0 g/dL Normal 6.4-8.2 [facility] Comment on above: Performed By: #### D DAVIDSON, MG, PHOS, CMP, LIPID, URIC #### [facility] [address] [address] [address] Sarmad Patino Sodium [Moles/Vol] 138 mmol/L Normal 136-145 [facility] Comment on above: Performed By: #### D DAVIDSON, MG, PHOS, CMP, LIPID, URIC #### [facility] [address] [address] [address] Sarmad Patino Urea nitrogen [Mass/Vol] 15.0 mg/dL Normal 7.0-18.0 [facility] Comment on above: Performed By: #### D DAVIDSON, MG, PHOS, CMP, LIPID, URIC #### [facility] [address] [address] [address] Sarmad Patino Urea nitrogen/Creatinine [Mass ratio] 19.5 mg/mg Normal [facility] Comment on above: Performed By: #### D DAVIDSON, MG, PHOS, CMP, LIPID, URIC #### [facility] [address] [address] [address] Sarmad Patino URIC ACID SERUMon 01-28-2022 Urate [Mass/Vol] 4.3 mg/dL Normal 2.6-6.0 [facility] Comment on above: Performed By: #### D DAVIDSON, MG, PHOS, CMP, LIPID, URIC #### [facility] [address] [address] [address] Sarmad Patino Quick Strepon 01-12-2022 S. pyogenes Org specific cx Ql (Throat) Negative [employer] Other Quick Strep LE TOTE [facility] [employer] Other XR CHEST 1 Von 01-07-2022 XR [...] BRITTON BERNARD Date: 2022-01-07 15:00 Normal [facility] CBC W MANUAL DIFFon 01-04-20 22 ATYPICAL LYMPH # 1.40 103/ul Normal [facility] Comment on above: Performed By: #### D DAVIDSON, MG, PHOS, CMP, LIPID, URIC #### [facility] [address] [address] [address] Sarmad Patino ATYPICAL LYMPH % 10 % Normal [facility] Comment on above: Performed By: #### D DAVIDSON, MG, PHOS, CMP, LIPID, URIC #### [facility] [address] [address] [address] Sarmad Patino BAND # 0.6 103/ul Critically high 0.0-0.3 [facility] Comment on above: Performed By: #### D DAVIDSON, MG, PHOS, CMP, LIPID, URIC #### [facility] [address] [address] [address] Sarmad Patino BAND % 4 % Normal 0-5 [facility] Comment on above: Performed By: #### D DAVIDSON, MG, PHOS, CMP, LIPID, URIC #### [facility] [address] [address] [address] Sarmad Patino BASOM # 0.00 103/ul Normal 0.00-0.10 [facility] Comment on above: Performed By: #### D DAVIDSON, MG, PHOS, CMP, LIPID, URIC #### [facility] [address] [address] [address] Sarmad Patino BASOM % 0.0 % Critically low 0.2-2.0 [facility] Comment on above: Performed By: #### D DAVIDSON, MG, PHOS, CMP, LIPID, URIC #### [facility] [address] [address] [address] Sarmad Patino BLAST # Normal [facility] Comment on above: Performed By: #### D DAVIDSON, MG, PHOS, CMP, LIPID, URIC #### [facility] [address] [address] [address] Sarmad Patino BLAST % Normal [facility] Comment on above: Performed By: #### D DAVIDSON, MG, PHOS, CMP, LIPID, URIC #### [facility] [address] [address] [address] Sarmad Patino CORRECTED WBC Normal 4.0-11.0 [facility] Comment on above: Performed By: #### D DAVIDSON, MG, PHOS, CMP, LIPID, URIC #### [facility] [address] [address] [address] Sarmad Patino EOS # 0.14 103/ul Normal 0.00-0.70 [facility] Comment on above: Performed By: #### D DAVIDSON, MG, PHOS, CMP, LIPID, URIC #### [facility] [address] [address] [address] Sarmad Patino EOS% 1.0 % Normal 0.9-7.0 [facility] Comment on above: Performed By: #### D DAVIDSON, MG, PHOS, CMP, LIPID, URIC #### [facility] [address] [place] [address] Dr. Sarmad Patino HCT 42.8 % Normal 36.0-48.0 [facility] Comment on above: Performed By: #### D DAVIDSON, MG, PHOS, CMP, LIPID, URIC #### [facility] [address] [place] [address] Dr. Sarmad Patino HGB 14.2 g/dl Normal 12.0-16.0 [facility] Comment on above: Performed By: #### D DAVIDSON, MG, PHOS, CMP, LIPID, URIC #### [facility] [address] [address] [address] Sarmad Patino LYMPHM # 0.00 103/ul Critically low 1.20-3.80 [facility] Comment on above: Performed By: #### D DAVDISON, MG, PHOS, CMP, LIPID, URIC #### [facility] [address] [place] [address] Dr. Sarmad Patino LYMPHM% 0.0 % Critically low 20.5-60.0 [facility] Comment on above: Performed By: #### D DAVIDSON, MG, PHOS, CMP, LIPID, URIC #### [facility] [address] [address] [address] Sarmad Patino MCH 28.8 pg Normal 26.7-34.0 [facility] Comment on above: Performed By: #### D DAVIDSON, MG, PHOS, CMP, LIPID, URIC #### [facility] [address] [address] [address] Sarmad Patino MCHC 33.2 g/dl Normal 29.9-35.2 [facility] Comment on above: Performed By: #### D DAVIDSON, MG, PHOS, CMP, LIPID, URIC #### [facility] [address] [address] [address] Sarmad Patino MCV 86.8 fL Normal 81.0-99.0 [facility] Comment on above: Performed By: #### D DAVIDSON, MG, PHOS, CMP, LIPID, URIC #### [facility] [address] [address] [address] Sarmad Patino METAMYELOCYTE # Normal [facility] Comment on above: Performed By: #### D DAVIDSON, MG, PHOS, CMP, LIPID, URIC #### [facility] [address] [address] [address] Sarmad Patino METAMYELOCYTE % Normal [facility] Comment on above: Performed By: #### D DAVIDSON, MG, PHOS, CMP, LIPID, URIC #### [facility] [address] [address] [address] Sarmad Patino MONOM# 0.84 103/ul Critically high 0.30-0.80 [facility] Comment on above: Performed By: #### D DAVIDSON, MG, PHOS, CMP, LIPID, URIC #### [facility] [address] [address] [address] Sarmad Patino MONOM% 6.0 % Normal 1.7-12.0 [facility] Comment on above: Performed By: #### D DAVIDSON, MG, PHOS, CMP, LIPID, URIC #### [facility] [address] [address] [address] Sarmad Patino MPV 11.5 fL Normal 9.5-13.5 [facility] Comment on above: Performed By: #### D DAVIDSON, MG, PHOS, CMP, LIPID, URIC #### [facility] [address] [address] [address] Sarmad Patino MYELOCYTE # 0.3 103/ul Normal [facility] Comment on above: Performed By: #### D DAVIDSON, MG, PHOS, CMP, LIPID, URIC #### [facility] [address] [address] [address] Sarmad Patino MYELOCYTE % 2 % Normal [facility] Comment on above: Performed By: #### D DAVIDSON, MG, PHOS, CMP, LIPID, URIC #### [facility] [address] [place] [address] Dr. Sarmad Patino NRBC [facility] Comment on above: Performed By: #### D DAVIDSON, MG, PHOS, CMP, LIPID, URIC #### [facility] [address] [place] [address] Dr. Sarmad Patino PLT 180 103/ul Normal 150-450 [facility] Comment on above: Performed By: #### D DAVIDSON, MG, PHOS, CMP, LIPID, URIC #### [facility] [address] [place] [address] Dr. Sarmad Patino RBC 4.93 106/ul Normal 4.20-5.40 [facility] Comment on above: Performed By: #### D DAVIDSON, MG, PHOS, CMP, LIPID, URIC #### [facility] [address] [place] [address] Dr. Sarmad Patino RDW 13.9 % Normal 11.0-15.0 [facility] Comment on above: Performed By: #### D DAVIDSON, MG, PHOS, CMP, LIPID, URIC #### [facility] [address] [place] [address] Dr. Sarmad Patino SEG # 10.78 103/ul Critically high 1.40-6.50 [facility] Comment on above: Performed By: #### D DAVIDSON, MG, PHOS, CMP, LIPID, URIC #### [facility] [address] [place] [address] Dr. Sarmad Patino SEG % 77.0 % Critically high 43.0-75.0 [facility] Comment on above: Performed By: #### D DAVIDSON, MG, PHOS, CMP, LIPID, URIC #### [facility] [address] [address] [address] Sarmad Patino WBC 14.0 103/ul Critically high 4.0-11.0 [facility] Comment on above: Performed By: #### D DAVIDSON, MG, PHOS, CMP, LIPID, URIC #### [facility] [address] [address] [address] NECK ST W [...] middle ear cavities clear. Skull base intact. Private Tutor spaces normal. Parotid glands normal. Submandibular glands [...] FKEISHA HOPPER Date: 2022-01-03 10:40 Normal [facility]on SARS-CoV-2 (COVID-19) RNA MURALI+probe Ql (Unsp spec) Detected Critically abnormal NOT DETECTED [facility] Comment on above: Result Comment: This test is not yet approved or cleared by the [place] FDA. When there are no FDA-approved or cleared tests available, and other criteria are met, FDA can make tests available under an emergency access mechanism called an Emergency Use Authorization (EUA). The EUA for this test is supported by the Railroad Car Cleaner of Health and Human Service's declaration that [...] DAVIDSON, MG, PHOS, CMP, LIPID, URIC #### [facility] [address] [place] [address] Dr. Sarmad Patino GROUP A STREP CULTUREon S. pyogenes Ag Ql (Unsp spec) Culture Observations: Negative for Group A Streptococcus Normal [facility] Comment on above: Performed By: #### U MAXI, LIPID, MG, CMP, DBIL, PHOS #### [facility] [address] [address] [address] Sarmad Patino INFLUENZA A AND B AGon 01-03 INFLUENZA A AG Negative Normal NEGATIVE SEE COMMENT [facility] Comment on above: Performed By: #### D DAVIDSON, MG, PHOS, CMP, LIPID, URIC #### [facility] [address] [place] [address] Dr. Sarmad Patino INFLUENZA B AG Negative Normal NEGATIVE SEE COMMENT [facility] Comment on above: Performed By: #### D DAVIDSON, MG, PHOS, CMP, LIPID, URIC #### [facility] [address] [place] [address] Dr. Sarmad Patino INTERNAL CONTROLS Within Normal Limits Normal Wi thin Normal Limits [facility] Comment on above: Performed By: #### D DAVIDSON, MG, PHOS, CMP, LIPID, URIC #### [facility] [address] [address] [address] Sarmad Patino PROF 14(COMP METB)on 022 Albumin [Mass/Vol] 2.5 g/dL Critically low 3.4-5.0 Th e [facility] Comment on above: Performed By: #### U MAXI, LIPID, MG, CMP, DBIL, PHOS #### [facility] [address] [address] [address] Sarmad Patino Albumin/Globulin [Mass ratio] 0.5 {ratio} Normal [facility] Comment on above: Performed By: #### U MAXI, LIPID, MG, CMP, DBIL, PHOS #### [facility] [address] [place] [address] Dr. Sarmad Patino ALP [Catalytic activity/Vol] 185 U/L Critically high 46-116 [facility] Comment on above: Performed By: #### U MAXI, LIPID, MG, CMP, DBIL, PHOS #### [facility] [address] [place] [address] Dr. Sarmad Patino ALT [Catalytic activity/Vol] 108 U/L Critically high 14-59 [facility] Comment on above: Performed By: #### U MAXI, LIPID, MG, CMP, DBIL, PHOS #### [facility] [address] [address] [address] Sarmad aPtino Anion gap [Moles/Vol] 8.3 mmol/L Normal [facility] Comment on above: Performed By: #### U MAXI, LIPID, MG, CMP, DBIL, PHOS #### [facility] [address] [place] [address] Dr. Sarmad Patino AST [Catalytic activity/Vol] 59 U/L Critically high 15-37 [facility] Comment on above: Performed By: #### U MAXI, LIPID, MG, CMP, DBIL, PHOS #### [facility] [address] [place] [address] Dr. Sarmad Patino Bilirubin [Mass/Vol] 0.6 mg/dL Normal 0.2-1.0 [facility] Comment on above: Performed By: #### U MAXI, LIPID, MG, CMP, DBIL, PHOS #### [facility] [address] [address] [address] Sarmad Patino Calcium [Mass/Vol] 9.0 mg/dL Normal 8.5-10.1 [facility] Comment on above: Performed By: #### U MAXI, LIPID, MG, CMP, DBIL, PHOS #### [facility] [address] [address] [address] Sarmad Patino Chloride [Moles/Vol] 100 mmol/L Normal 98-107 [facility] Comment on above: Performed By: #### U MAXI, LIPID, MG, CMP, DBIL, PHOS #### [facility] [address] [address] [address] Sarmad Patino CO2 [Moles/Vol] 29.0 mmol/L Normal 21.0-32.0 [facility] Comment on above: Performed By: #### U MAXI, LIPID, MG, CMP, DBIL, PHOS #### [facility] [address] [address] [address] Sarmad Patino Creatinine [Mass/Vol] 1.05 mg/dL Critically high 0.55-1.02 [facility] Comment on above: Performed By: #### U MAXI, LIPID, MG, CMP, DBIL, PHOS #### [facility] [address] [address] [address] Sarmad Patino EGFR-AF [place] >60 Normal >=60 [facility] Comment on above: Performed By: #### U MAXI, LIPID, MG, CMP, DBIL, PHOS #### [facility] [address] [address] [address] Sarmad Patino EGFR-NON AF [place] 53 mL/min/1.73m2 Critically low >=60 [facility] Comment on above: Performed By: #### U MAXI, LIPID, MG, CMP, DBIL, PHOS #### [facility] [address] [place] [address] Dr. Sarmad Patino Globulin (S) [Mass/Vol] 4.6 g/dL Normal [facility] Comment on above: Performed By: #### U MAXI, LIPID, MG, CMP, DBIL, PHOS #### [facility] [address] [place] [address] Dr. Sarmad Patino Glucose [Mass/Vol] 154 mg/dL Critically high 74-106 [facility] Comment on above: Performed By: #### U MAXI, LIPID, MG, CMP, DBIL, PHOS #### [facility] [address] [place] [address] Dr. Sarmad Patino Potassium [Moles/Vol] 3.3 mmol/L Critically low 3.5-5.1 [facility] Comment on above: Performed By: #### U MAXI, LIPID, MG, CMP, DBIL, PHOS #### [facility] [address] [place] [address] Dr. Sarmad Patino Protein [Mass/Vol] 7.1 g/dL Normal 6.4-8.2 [facility] Comment on above: Performed By: #### U MAXI, LIPID, MG, CMP, DBIL, PHOS #### [facility] [address] [place] [address] Dr. Sarmad Patino Sodium [Moles/Vol] 134 mmol/L Critically low 136-145 [facility] Comment on above: Performed By: #### U MAXI, LIPID, MG, CMP, DBIL, PHOS #### [facility] [address] [place] [address] Dr. Sarmad Patino Urea nitrogen [Mass/Vol] 24.0 mg/dL Critically high 7.0-18.0 [facility] Comment on above: Performed By: #### U MAXI, LIPID, MG, CMP, DBIL, PHOS #### [facility] [address] [place] [address] Dr. Sarmad Patino Urea nitrogen/Creatinine [Mass ratio] 22.9 mg/mg Normal [facility] Comment on above: Performed By: #### U MAXI, LIPID, MG, CMP, DBIL, PHOS #### [facility] [address] [place], [place] [address] Dr. Sarmad Patino STREPT SCREENon 01-03-2022 STREP SCREEN A Negative Normal NEGATIVE [facility] Comment on above: Performed By: #### U MAXI, LIPID, MG, CMP, DBIL, PHOS #### [facility] [address] [place], [place] [address] Dr. Sarmad Patino XR CHEST 2 Von [...] MAYRA WHITESIDE Date: 2022-01-03 03:54 Normal [facility] Quick Strepon 12-28-2021 S. pyogenes Org specific cx Ql (Throat) Negative [employer] Other Quick Strep [facility] [facility] Other SARS-CoV-2 (COVID-19) RNA NA A+probe Ql (Resp)on 12-25-2021 SARS-CoV-2 (COVID-19) RNA MURALI+probe Ql (Unsp spec) Negative [facility] [facility] [employer] Other FK506 (TACROLIMUS) WHOLE BLO ODon 12-08-2021 Tacrolimus (FK506), Blood 6.6 ng/mL Normal 2.0-20.0 [facility] Comment on above: Result Comment: Trou gh (immediately following transplant) 15.0 . Trough (steady state, 2 weeks or more after transplant): 3.0 - 8.0 . Performed by LC-MS/MS technology. Performed By: #### D DAVIDSON, MG, PHOS, CMP, LIPID, URIC #### [facility] [address] [address] [address] Sarmad Patino RAPAMUNE(SIROLIMUS)on 2021 Rapamune(Sirolimus) , whole blood 9.6 ng/mL Normal 3.0-20.0 [facility] Comment on above: Result Comment: Perf ormed by LC/MS-MS technology . This test was developed and its performance characteristics determined by [employer]. It has not been cleared or approved by the Food and Drug Administration. Performed By: #### D DAVIDSON, MG, PHOS, CMP, LIPID, URIC #### [facility] [address] [place] [address] Dr. Sarmad Patino BILIRUBIN CONJUGATED (DIRECT )on 12-05-2021 BILI, CONJUGATED 0.1 mg/dL Normal 0.0-0.2 [facility] Comment on above: Performed By: #### D DAVIDSON, MG, PHOS, CMP, LIPID, URIC #### [facility] [address] [place] [address] Dr. Sarmad Patino CBC W MANUAL DIFFon 12-06-19 22 ATYPICAL LYMPH # Normal [facility] Comment on above: Performed By: #### D DAVIDSON, MG, PHOS, CMP, LIPID, URIC #### [facility] [address] [place] [address] Dr. Sarmad Patino ATYPICAL LYMPH % Normal [facility] Comment on above: Performed By: #### D DAVIDSON, MG, PHOS, CMP, LIPID, URIC #### [facility] [address] [place] [address] Dr. Sarmad Patino BAND # Normal 0.0-0.3 [facility] Comment on above: Performed By: #### D DAVIDSON, MG, PHOS, CMP, LIPID, URIC #### [facility] [address] [place] [address] Dr. Sarmad Patino BAND % Normal 0-5 [facility] Comment on above: Performed By: #### D DAVIDSON, MG, PHOS, CMP, LIPID, URIC #### [facility] [address] [place], [place] [id number] Dr. Sarmad Patino BASOM # 0.00 103/ul Normal 0.00-0.10 [facility] Comment on above: Performed By: #### D DAVIDSON, MG, PHOS, CMP, LIPID, URIC #### [facility] [address] [address] [address] Sarmad Patino BASOM % 0.0 % Critically low 0.2-2.0 [facility] Comment on above: Performed By: #### D DAVIDSON, MG, PHOS, CMP, LIPID, URIC #### [facility] [address] [place] [address] Dr. Sarmad Patino BLAST # Normal [facility] Comment on above: Performed By: #### D DAVIDSON, MG, PHOS, CMP, LIPID, URIC #### [facility] [address] [place] [address] Dr. Sarmad Patino BLAST % Normal [facility] Comment on above: Performed By: #### D DAVIDSON, MG, PHOS, CMP, LIPID, URIC #### [facility] [address] [place] [address] Dr. Sarmad Patino CORRECTED WBC Normal 4.0-11.0 [facility] Comment on above: Performed By: #### D DAVIDSON, MG, PHOS, CMP, LIPID, URIC #### [facility] [address] [place] [address] Dr. Sarmad Patino EOS # 0.15 103/ul Normal 0.00-0.70 [facility] Comment on above: Performed By: #### D DAVIDSON, MG, PHOS, CMP, LIPID, URIC #### [facility] [address] [address] [address] Sarmad Patino EOS% 2.0 % Normal 0.9-7.0 [facility] Comment on above: Performed By: #### D DAVIDSON, MG, PHOS, CMP, LIPID, URIC #### [facility] [address] [place] [address] Dr. Sarmad Patino HCT 47.5 % Normal 36.0-48.0 [facility] Comment on above: Performed By: #### D DAVIDSON, MG, PHOS, CMP, LIPID, URIC #### [facility] [address] [address] [address] Sarmad Patino HGB 15.6 g/dl Normal 12.0-16.0 [facility] Comment on above: Performed By: #### D DAVIDSON, MG, PHOS, CMP, LIPID, URIC #### [facility] [address] [place] [address] Dr. Sarmad Patino LYMPHM # 1.46 103/ul Normal 1.20-3.80 [facility] Comment on above: Performed By: #### D DAVIDSON, MG, PHOS, CMP, LIPID, URIC #### [facility] [address] [place] [address] Dr. Sarmad Patino LYMPHM% 19.0 % Critically low 20.5-60.0 [facility] Comment on above: Performed By: #### D DAVIDSON, MG, PHOS, CMP, LIPID, URIC #### [facility] [address] [place] [address] Dr. Sarmad Patino MCH 28.9 pg Normal 26.7-34.0 [facility] Comment on above: Performed By: #### D DAVIDSON, MG, PHOS, CMP, LIPID, URIC #### [facility] [address] [place] [address] Dr. Sarmad Patino MCHC 32.8 g/dl Normal 29.9-35.2 [facility] Comment on above: Performed By: #### D DAVIDSON, MG, PHOS, CMP, LIPID, URIC #### [facility] [address] [place] [address] Dr. Sarmad Patnio MCV 88.1 fL Normal 81.0-99.0 [facility] Comment on above: Performed By: #### D DAVIDSON, MG, PHOS, CMP, LIPID, URIC #### [facility] [address] [place] [address] Dr. Sarmad Patino METAMYELOCYTE # Normal [facility] Comment on above: Performed By: #### D DAVIDSON, MG, PHOS, CMP, LIPID, URIC #### [facility] [address] [address] [address] Sarmad Patino METAMYELOCYTE % Normal [facility] Comment on above: Performed By: #### D DAVIDSON, MG, PHOS, CMP, LIPID, URIC #### [facility] [address] [address] [address] Sarmad Patino MONOM# 0.85 103/ul Critically high 0.30-0.80 [facility] Comment on above: Performed By: #### D DAVIDSON, MG, PHOS, CMP, LIPID, URIC #### [facility] [address] [place] [address] Dr. Sarmad Patino MONOM% 11.0 % Normal 1.7-12.0 [facility] Comment on above: Performed By: #### D DAVIDSON, MG, PHOS, CMP, LIPID, URIC #### [facility] [address] [place] [address] Dr. Sarmad Patino MPV 11.3 fL Normal 9.5-13.5 [facility] Comment on above: Performed By: #### D DAVIDSON, MG, PHOS, CMP, LIPID, URIC #### [facility] [address] [place] [address] Dr. Sarmad Patino MYELOCYTE # Normal [facility] Comment on above: Performed By: #### D DAVIDSON, MG, PHOS, CMP, LIPID, URIC #### [facility] [address] [place] [address] Dr. Sarmad Patino MYELOCYTE % Normal [facility] Comment on above: Performed By: #### D DAVIDSON, MG, PHOS, CMP, LIPID, URIC #### [facility] [address] [place] [address] Dr. Sarmad Patino NRBC Normal [facility] Comment on above: Performed By: #### D DAVIDSON, MG, PHOS, CMP, LIPID, URIC #### [facility] [address] [place] [address] Dr. Sarmad Patino PLT 214 103/ul Normal 150-450 [facility] Comment on above: Performed By: #### D DAVIDSON, MG, PHOS, CMP, LIPID, URIC #### [facility] [address] [address] [address] Sarmad Patino RBC 5.39 106/ul Normal 4.20-5.40 [facility] Comment on above: Performed By: #### D DAVIDSON, MG, PHOS, CMP, LIPID, URIC #### [facility] [address] [place] [place] [address] Dr. Sarmad Patino RDW 13.8 % Normal 11.0-15.0 [facility] Comment on above: Performed By: #### D DAVIDSON, MG, PHOS, CMP, LIPID, URIC #### [facility] [address] [address] [address] Sarmad Patino SEG # 5.24 103/ul Normal 1.40-6.50 [facility] Comment on above: Performed By: #### D DAVIDSON, MG, PHOS, CMP, LIPID, URIC #### [facility] [address] [place] [address] Dr. Sarmad Patino SEG % 68.0 % Normal 43.0-75.0 [facility] Comment on above: Performed By: #### D DAVIDSON, MG, PHOS, CMP, LIPID, URIC #### [facility] [address] [address] [address] Sarmad Patino WBC 7.7 103/ul Normal 4.0-11.0 [facility] Comment on above: Performed By: #### D DAVIDSON, MG, PHOS, CMP, LIPID, URIC #### [facility] [address] [place] [address] Dr. Sarmad Paitno LIPID PROFILEon 12-05-2021 CHOL-HDL RATIO NORM SEE BELOW Normal [facility] Comment on above: Result Comment: 3.3 - 4.4 LOW RISK 4.4 - 7.1 AVERAGE RISK 7.1 - 11.0 MODERATE RISK >11.0 HIGH RISK Performed By: #### D DAVIDSON, MG, PHOS, CMP, LIPID, URIC #### [facility] [address] [place] [address] Dr. Sarmad Patino Cholesterol [Mass/Vol] 170 mg/dL Normal <=200 [facility] Comment on above: Performed By: #### D DAVIDSON, MG, PHOS, CMP, LIPID, URIC #### [facility] [address] [address] [address] Sarmad Patino Cholesterol in HDL [Mass/Vol] 54 mg/dL Normal 40-60 [facility] Comment on above: Performed By: #### D DAVIDSON, MG, PHOS, CMP, LIPID, URIC #### [facility] [address] [address] [address] Sarmad Patino Cholesterol in LDL [Mass/Vol] 92.2 mg/dL Normal [facility] Comment on above: Performed By: #### D DAVIDSON, MG, PHOS, CMP, LIPID, URIC #### [facility] [address] [address] [address] Sarmad Patino Cholesterol.total/C holesterol in HDL [Mass ratio] 3.1 {ratio} Normal [facility] Comment on above: Performed By: #### D DAVIDSON, MG, PHOS, CMP, LIPID, URIC #### [facility] [address] [address] [address] Sarmad Patino HDL NORMAL > or = 60 mg/dl - LO W CARDIOVASCULAR RISK <40 mg/dl - HIGH CARDIOVASCULAR RISK Normal [facility] Comment on above: Performed By: #### D DAVIDSON, MG, PHOS, CMP, LIPID, URIC #### [facility] [address] [address] [address] Sarmad Patino LDL CALC NORMAL SEE BELOW Normal [facility] Comment on above: Result Comment: <100 mg/dl OPTIMAL 100 - 129 mg/dl NEAR OR ABOVE OPTIMAL 130 - 159 mg/dl BORDERLINE HIGH 160 - 189 mg/dl HIGH >190 mg/dl VERY HIGH Performed By: #### D DAVIDSNO, MG, PHOS, CMP, LIPID, URIC #### [facility] [address] [address] [address] Sarmad Patino Triglyceride [Mass/Vol] 119 mg/dL Normal <=150 [facility] Comment on above: Performed By: #### D DAVIDSON, MG, PHOS, CMP, LIPID, URIC #### [facility] [address] [address] [address] Sarmad Patino VLDL CALC 23.8 mg/dL Normal [facility] Comment on above: Performed By: #### D DAVIDSON, MG, PHOS, CMP, LIPID, URIC #### [facility] [address] [place] [address] Dr. Sarmad Patino MAGNESIUMon 12-05-2021 Magnesium [Mass/Vol] 1.8 mg/dL Normal 1.8-2.4 [facility] Comment on above: Performed By: #### D DAVIDSON, MG, PHOS, CMP, LIPID, URIC #### [facility] [address] [place] [address] Dr. Sarmad Patino PHOSPHORUSon 12-05-2021 Phosphate [Mass/Vol] 3.8 mg/dL Normal 2.6-4.7 [facility] Comment on above: Performed By: #### D DAVIDSON, MG, PHOS, CMP, LIPID, URIC #### [facility] [address] [place] [address] Dr. Sarmad Patino PROF 14(COMP METB)on 022 Albumin [Mass/Vol] 3.7 g/dL Normal 3.4-5.0 [facility] Comment on above: Performed By: #### D DAVIDSON, MG, PHOS, CMP, LIPID, URIC #### [facility] [address] [place] [address] Dr. Sarmad Patino Albumin/Globulin [Mass ratio] 1.0 {ratio} Normal [facility] Comment on above: Performed By: #### D DAVIDSON, MG, PHOS, CMP, LIPID, URIC #### [facility] [address] [place] [address] Dr. Sarmad Patino ALP [Catalytic activity/Vol] 151 U/L Critically high 46-116 [facility] Comment on above: Performed By: #### D DAVIDSON, MG, PHOS, CMP, LIPID, URIC #### [facility] [address] [place] [address] Dr. Sarmad Patino ALT [Catalytic activity/Vol] 27 U/L Normal 14-59 [facility] Comment on above: Performed By: #### D DAVIDSON, MG, PHOS, CMP, LIPID, URIC #### [facility] [address] [place] [address] Dr. Sarmad Patino Anion gap [Moles/Vol] 14.5 mmol/L Normal [facility] Comment on above: Performed By: #### D DAVIDSON, MG, PHOS, CMP, LIPID, URIC #### [facility] [address] [place] [address] Dr. Sarmad Patino AST [Catalytic activity/Vol] 25 U/L Normal 15-37 [facility] Comment on above: Performed By: #### D DAVIDSON, MG, PHOS, CMP, LIPID, URIC #### [facility] [address] [place] [address] Dr. Sarmad Patino Bilirubin [Mass/Vol] 0.4 mg/dL Normal 0.2-1.0 [facility] Comment on above: Performed By: #### D DAVIDSON, MG, PHOS, CMP, LIPID, URIC #### [facility] [address] [place] [address] Dr. Sarmad Patino Calcium [Mass/Vol] 9.4 mg/dL Normal 8.5-10.1 [facility] Comment on above: Performed By: #### D DAVIDSON, MG, PHOS, CMP, LIPID, URIC #### [facility] [address] [place] [address] Dr. Sarmad Patino Chloride [Moles/Vol] 103 mmol/L Normal 98-107 [facility] Comment on above: Performed By: #### D DAVIDSON, MG, PHOS, CMP, LIPID, URIC #### [facility] [address] [place] [address] Dr. Sarmad Patino CO2 [Moles/Vol] 26.5 mmol/L Normal 21.0-32.0 [facility] Comment on above: Performed By: #### D DAVIDSON, MG, PHOS, CMP, LIPID, URIC #### [facility] [address] [place] [address] Dr. Sarmad Patino Creatinine [Mass/Vol] 0.87 mg/dL Normal 0.55-1.02 [facility] Comment on above: Performed By: #### D DAVIDSON, MG, PHOS, CMP, LIPID, URIC #### [facility] [address] [address] [address] Sarmad Patino EGFR-AF [place] >60 Normal >=60 [facility] Comment on above: Performed By: #### D DAVIDSON, MG, PHOS, CMP, LIPID, URIC #### [facility] [address] [address] [address] Sarmad Patino EGFR-NON AF [place] >60 Normal >=60 [facility] Comment on above: Performed By: #### D DAVIDSON, MG, PHOS, CMP, LIPID, URIC #### [facility] [address] [address] [address] Sarmad Patino Globulin (S) [Mass/Vol] 3.8 g/dL Normal [facility] Comment on above: Performed By: #### D DAVIDSON, MG, PHOS, CMP, LIPID, URIC #### [facility] [address] [address] [address] Sarmad Patino Glucose [Mass/Vol] 104 mg/dL Normal 74-106 [facility] Comment on above: Performed By: #### D DAVIDSON, MG, PHOS, CMP, LIPID, URIC #### [facility] [address] [address] [address] Sarmad Patino Potassium [Moles/Vol] 4.0 mmol/L Normal 3.5-5.1 [facility] Comment on above: Performed By: #### D DAVIDSON, MG, PHOS, CMP, LIPID, URIC #### [facility] [address] [address] [address] Sarmad Patino Protein [Mass/Vol] 7.5 g/dL Normal 6.4-8.2 [facility] Comment on above: Performed By: #### D DAVIDSON, MG, PHOS, CMP, LIPID, URIC #### [facility] [address] [address] [address] Sarmad Patino Sodium [Moles/Vol] 140 mmol/L Normal 136-145 [facility] Comment on above: Performed By: #### D DAVIDSON, MG, PHOS, CMP, LIPID, URIC #### [facility] [address] [place] [address] Dr. Sarmad Patino Urea nitrogen [Mass/Vol] 19.0 mg/dL Critically high 7.0-18.0 [facility] Comment on above: Performed By: #### D DAVIDSON, MG, PHOS, CMP, LIPID, URIC #### [facility] [address] [place] [address] Dr. Sarmad Patino Urea nitrogen/Creatinine [Mass ratio] 21.8 mg/mg Normal [facility] Comment on above: Performed By: #### D DAVIDSON, MG, PHOS, CMP, LIPID, URIC #### [facility] [address] [place] [address] Dr. Sarmad Patino URIC ACID SERUMon 12-05-2021 Urate [Mass/Vol] 5.2 mg/dL Normal 2.6-6.0 [facility] Comment on above: Performed By: #### D DAVIDSON, MG, PHOS, CMP, LIPID, URIC #### [facility] [address] [place] [address] Dr. Sarmad SALAZAROLIMU, WHOLE BLOODon EVEROLIMUS 7.0 ng/mL Normal 3.0-8.0 [facility] Comment on above: Result Comment: Perf ormed by LC-MS/MS technology. Performed By: #### D DAVIDSON, MG, PHOS, CMP, LIPID, URIC #### [facility] [address] [place] [address] Dr. Sarmad Patino FK506 (TACROLIMUS) WHOLE BLO ODon 11-10-2021 Tacrolimus (FK506), Blood 6.4 ng/mL Normal 2.0-20.0 [facility] Comment on above: Result Comment: Trou gh (immediately following transplant) 15.0 . Trough (steady state, 2 weeks or more after transplant): 3.0 - 8.0 . Performed by LC-MS/MS technology. Performed By: #### D DAVIDSON, MG, PHOS, CMP, LIPID, URIC #### [facility] [address] [place] [address] Dr. Sarmad Patino BK VIRUS PCR QUANTon 022 BKV DNA QUANT PCR PLASMA Negative Normal Negative [facility] Comment on above: Result Comment: No B K DNA detected. . The linear range of the assay is 22 - 100,000,000 IU/mL. Performed By: #### U MAXI, LIPID, MG, CMP, DBIL, PHOS #### [facility] [address] [place] [address] Dr. Sarmad Patino Log10 BKV DNA Plasma Normal [facility] Comment on above: Performed By: #### U MAXI, LIPID, MG, CMP, DBIL, PHOS #### [facility] [address] [place] [address] Dr. Sarmad Patino BILIRUBIN CONJUGATED (DIRECT )on 11-07-2021 BILI, CONJUGATED 0.1 mg/dL Normal 0.0-0.2 [facility] Comment on above: Performed By: #### D DAVIDSON, MG, PHOS, CMP, LIPID, URIC #### [facility] [address] [place] [address] Dr. Sarmad Patino CBC AUTO DIFFon 11-07-2021 BASO # 0.0 103/ul Normal 0.0-0.1 [facility] Comment on above: Performed By: #### D DAVIDSON, MG, PHOS, CMP, LIPID, URIC #### [facility] [address] [place] [address] Dr. Sarmad Patino Basophils/100 WBC (Bld) 0.3 % Normal 0.2-2.0 [facility] Comment on above: Performed By: #### D DAVIDSON, MG, PHOS, CMP, LIPID, URIC #### [facility] [address] [place] [address] Dr. Sarmad Patino EO # 0.1 103/ul Normal 0.0-0.7 [facility] Comment on above: Performed By: #### D DAVIDSON, MG, PHOS, CMP, LIPID, URIC #### [facility] [address] [place] [address] Dr. Sarmad Patino Eosinophils/100 WBC (Bld) 2.1 % Normal 0.9-7.0 [facility] Comment on above: Performed By: #### D DAVIDSON, MG, PHOS, CMP, LIPID, URIC #### [facility] [address] [place] [address] Dr. Sarmad Patino Erythrocyte distribution width (RBC) [Ratio] 13.5 % Normal 11.0-15.0 [facility] Comment on above: Performed By: #### D DAVIDSON, MG, PHOS, CMP, LIPID, URIC #### [facility] [address] [place] [address] Dr. Sarmad Patino Hematocrit (Bld) [Volume fraction] 46.7 % Normal 36.0-48.0 [facility] Comment on above: Performed By: #### D DAVIDSON, MG, PHOS, CMP, LIPID, URIC #### [facility] [address] [place] [address] Dr. Sarmad Patino Hemoglobin (Bld) [Mass/Vol] 15.1 g/dL Normal 12.0-16.0 [facility] Comment on above: Performed By: #### D DAVIDSON, MG, PHOS, CMP, LIPID, URIC #### [facility] [address] [place] [address] Dr. Sarmad Patino IG # 0.03 10e3/ul Normal 0.00-0.03 [facility] Comment on above: Performed By: #### D DAVIDSON, MG, PHOS, CMP, LIPID, URIC #### [facility] [address] [place] [address] Dr. Sarmad Patino IG % 0.5 % Normal 0.0-0.5 [facility] Comment on above: Performed By: #### D DAVIDSON, MG, PHOS, CMP, LIPID, URIC #### [facility] [address] [place] [address] Dr. Sarmad Patino LYMPH # 1.3 103/ul Normal 1.2-3.8 [facility] Comment on above: Performed By: #### D DAVIDSON, MG, PHOS, CMP, LIPID, URIC #### [facility] [address] [place] [address] Dr. Sarmad Patino Lymphocytes/100 WBC (Bld) 19.9 % Critically low 20.5-60.0 [facility] Comment on above: Performed By: #### D DAVIDSON, MG, PHOS, CMP, LIPID, URIC #### [facility] [address] [place] [address] Dr. Sarmad Patino MANUAL DIFF REQ NO Normal [facility] Comment on above: Performed By: #### D DAVIDSON, MG, PHOS, CMP, LIPID, URIC #### [facility] [address] [place] [address] Dr. Sarmad Patino MCH (RBC) [Entitic mass] 28.6 pg Normal 26.7-34.0 [facility] Comment on above: Performed By: #### D DAVIDSON, MG, PHOS, CMP, LIPID, URIC #### [facility] [address] [place] [address] Dr. Sarmad Patino MCHC (RBC) [Mass/Vol] 32.3 g/dL Normal 29.9-35.2 [facility] Comment on above: Performed By: #### D DAVIDSON, MG, PHOS, CMP, LIPID, URIC #### [facility] [address] [place] [address] Dr. Sarmad Patino MCV (RBC) [Entitic vol] 88.4 fL Normal 81.0-99.0 [facility] Comment on above: Performed By: #### D DAVIDSON, MG, PHOS, CMP, LIPID, URIC #### [facility] [address] [place] [address] Dr. Sarmad Patino MONO # 0.8 103/ul Normal 0.3-0.8 [facility] Comment on above: Performed By: #### D DAVIDSON, MG, PHOS, CMP, LIPID, URIC #### [facility] [address] [place] [address] Dr. Sarmad Patino Monocytes/100 WBC (Bld) 12.9 % Critically high 1.7-12.0 [facility] Comment on above: Performed By: #### D DAVIDSON, MG, PHOS, CMP, LIPID, URIC #### [facility] [address] [place] [address] Dr. Sarmad Patino NEUT # 4.0 103/ul Normal 1.4-6.5 [facility] Comment on above: Performed By: #### D DAVIDSON, MG, PHOS, CMP, LIPID, URIC #### [facility] [address] [address] [address] Sarmad Patino Neutrophils/100 WBC (Bld) 64.3 % Normal 43.0-75.0 [facility] Comment on above: Performed By: #### D DAVIDSON, MG, PHOS, CMP, LIPID, URIC #### [facility] [address] [address] [address] Sarmad Patino Platelet mean volume (Bld) [Entitic vol] 11.3 fL Normal 9.5-13.5 [facility] Comment on above: Performed By: #### D DAVIDSON, MG, PHOS, CMP, LIPID, URIC #### [facility] [address] [address] [address] Sarmad Patino PLT 241 103/ul Normal 150-450 [facility] Comment on above: Performed By: #### D DAVIDSON, MG, PHOS, CMP, LIPID, URIC #### [facility] [address] [address] [address] Sarmad Patino RBC 5.28 106/ul Normal 4.20-5.40 [facility] Comment on above: Performed By: #### D DAVIDSON, MG, PHOS, CMP, LIPID, URIC #### [facility] [address] [place] [address] Dr. Sarmad Patino WBC 6.3 103/ul Normal 4.0-11.0 [facility] Comment on above: Performed By: #### D DAVIDSON, MG, PHOS, CMP, LIPID, URIC #### [facility] [address] [place] [address] Dr. Sarmad Patino GLYCOHEMOGLOBIN A1Con 2021 ADA RECOMMENDATION SEE BELOW Normal [facility] Comment on above: Result Comment: ADA RECOMMENDED LIMIT 4.0 - 6.0 ADA THERAPEUTIC TARGET < 7.0 ACTION SUGGESTED > 7.0 Performed By: #### D DAVIDSON, MG, PHOS, CMP, LIPID, URIC #### [facility] [address] [place] [address] Dr. Sarmad Patino Glucose [Mass/Vol] 120 mg/dL Normal [facility] Comment on above: Performed By: #### D DAVIDSON, MG, PHOS, CMP, LIPID, URIC #### [facility] [address] [address] [address] aSrmad Patino HbA1c (Bld) [Mass fraction] 5.8 % Normal 4.5-6.2 [facility] Comment on above: Performed By: #### D DAVIDSON, MG, PHOS, CMP, LIPID, URIC #### [facility] [address] [address] [address] Sarmad Patino LIPID PROFILEon 11-07-2021 CHOL-HDL RATIO NORM SEE BELOW Normal [facility] Comment on above: Result Comment: 3.3 - 4.4 LOW RISK 4.4 - 7.1 AVERAGE RISK 7.1 - 11.0 MODERATE RISK >11.0 HIGH RISK Performed By: #### D DAVIDSON, MG, PHOS, CMP, LIPID, URIC #### [facility] [address] [place] [address] Dr. Sarmad Patino Cholesterol [Mass/Vol] 157 mg/dL Normal <=200 [facility] Comment on above: Performed By: #### D DAVIDSON, MG, PHOS, CMP, LIPID, URIC #### [facility] [address] [address] [address] Sarmad Patino Cholesterol in HDL [Mass/Vol] 48 mg/dL Normal 40-60 [facility] Comment on above: Performed By: #### D DAVIDSON, MG, PHOS, CMP, LIPID, URIC #### [facility] [address] [address] [address] Sarmad Patino Cholesterol in LDL [Mass/Vol] 89.6 mg/dL Normal [facility] Comment on above: Performed By: #### D DAVIDSON, MG, PHOS, CMP, LIPID, URIC #### [facility] [address] [place] [address] Dr. Sarmad Patino Cholesterol.total/C holesterol in HDL [Mass ratio] 3.3 {ratio} Normal [facility] Comment on above: Performed By: #### D DAVIDSON, MG, PHOS, CMP, LIPID, URIC #### [facility] [address] [address] [address] Sarmad Patino HDL NORMAL > or = 60 mg/dl - LO W CARDIOVASCULAR RISK <40 mg/dl - HIGH CARDIOVASCULAR RISK Normal [facility] Comment on above: Performed By: #### D DAVIDSON, MG, PHOS, CMP, LIPID, URIC #### [facility] [address] [address] [address] Sarmad Patino LDL CALC NORMAL SEE BELOW Normal [facility] Comment on above: Result Comment: <100 mg/dl OPTIMAL 100 - 129 mg/dl NEAR OR ABOVE OPTIMAL 130 - 159 mg/dl BORDERLINE HIGH 160 - 189 mg/dl HIGH >190 mg/dl VERY HIGH Performed By: #### D DAVIDSON, MG, PHOS, CMP, LIPID, URIC #### [facility] [address] [place] [address] Dr. Sarmad Patino Triglyceride [Mass/Vol] 97 mg/dL Normal <=150 [facility] Comment on above: Performed By: #### D DAVIDSON, MG, PHOS, CMP, LIPID, URIC #### [facility] [address] [address] [address] Sarmad Patino VLDL CALC 19.4 mg/dL Normal [facility] Comment on above: Performed By: #### D DAVIDSON, MG, PHOS, CMP, LIPID, URIC #### [facility] [address] [place] [address] Dr. Sarmad Patino MAGNESIUMon 11-07-2021 Magnesium [Mass/Vol] 1.9 mg/dL Normal 1.8-2.4 [facility] Comment on above: Performed By: #### D DAVIDSON, MG, PHOS, CMP, LIPID, URIC #### [facility] [address] [address] [address] Sarmad Patino PHOSPHORUSon 11-07-2021 Phosphate [Mass/Vol] 3.4 mg/dL Normal 2.6-4.7 [facility] Comment on above: Performed By: #### D DAVIDSON, MG, PHOS, CMP, LIPID, URIC #### [facility] [address] [address] [address] aSrmad Patino PROF 14(COMP METB)on 022 Albumin [Mass/Vol] 3.6 g/dL Normal 3.4-5.0 [facility] Comment on above: Performed By: #### D DAVIDSON, MG, PHOS, CMP, LIPID, URIC #### [facility] [address] [address] [address] Sarmad Patino Albumin/Globulin [Mass ratio] 0.9 {ratio} Normal [facility] Comment on above: Performed By: #### D DAVIDSON, MG, PHOS, CMP, LIPID, URIC #### [facility] [address] [address] [address] Sarmad Patino ALP [Catalytic activity/Vol] 158 U/L Critically high 46-116 [facility] Comment on above: Performed By: #### D DAVIDSON, MG, PHOS, CMP, LIPID, URIC #### [facility] [address] [place] [address] Dr. Sarmad Patino ALT [Catalytic activity/Vol] 23 U/L Normal 14-59 [facility] Comment on above: Performed By: #### D DAVIDSON, MG, PHOS, CMP, LIPID, URIC #### [facility] [address] [address] [address] Sarmad Patino Anion gap [Moles/Vol] 14.8 mmol/L Normal [facility] Comment on above: Performed By: #### D DAVIDSON, MG, PHOS, CMP, LIPID, URIC #### [facility] [address] [address] [address] Sarmad Patino AST [Catalytic activity/Vol] 18 U/L Normal 15-37 [facility] Comment on above: Performed By: #### D DAVIDSON, MG, PHOS, CMP, LIPID, URIC #### [facility] [address] [address] [address] Sarmad Patino Bilirubin [Mass/Vol] 0.4 mg/dL Normal 0.2-1.0 [facility] Comment on above: Performed By: #### D DAVIDSON, MG, PHOS, CMP, LIPID, URIC #### [facility] [address] [address] [address] Sarmad Patino Calcium [Mass/Vol] 9.3 mg/dL Normal 8.5-10.1 [facility] Comment on above: Performed By: #### D DAVIDSON, MG, PHOS, CMP, LIPID, URIC #### [facility] [address] [address] [address] Sarmad Patino Chloride [Moles/Vol] 105 mmol/L Normal 98-107 [facility] Comment on above: Performed By: #### D DAVIDSON, MG, PHOS, CMP, LIPID, URIC #### [facility] [address] [address] [address] Sarmad Patino CO2 [Moles/Vol] 26.1 mmol/L Normal 21.0-32.0 [facility] Comment on above: Performed By: #### D DAVIDSON, MG, PHOS, CMP, LIPID, URIC #### [facility] [address] [place] [address] Dr. Sarmad Patino Creatinine [Mass/Vol] 0.84 mg/dL Normal 0.55-1.02 [facility] Comment on above: Performed By: #### D DAVIDSON, MG, PHOS, CMP, LIPID, URIC #### [facility] [address] [address] [address] Sarmad Patino EGFR-AF [place]ER >60 Normal >=60 [facility] Comment on above: Performed By: #### D DAVIDSON, MG, PHOS, CMP, LIPID, URIC #### [facility] [address] [address] [address] Sarmad Patino EGFR-NON AF [place] >60 Normal >=60 [facility] Comment on above: Performed By: #### D DAVIDSON, MG, PHOS, CMP, LIPID, URIC #### [facility] [address] [address] [address] Sarmad Patino Globulin (S) [Mass/Vol] 3.8 g/dL Normal [facility] Comment on above: Performed By: #### D DAVIDSON, MG, PHOS, CMP, LIPID, URIC #### [facility] [address] [address] [address] Sarmad Patino Glucose [Mass/Vol] 97 mg/dL Normal 74-106 [facility] Comment on above: Performed By: #### D DAVIDSON, MG, PHOS, CMP, LIPID, URIC #### [facility] [address] [place] [address] Dr. Sarmad Patino Potassium [Moles/Vol] 3.9 mmol/L Normal 3.5-5.1 [facility] Comment on above: Performed By: #### D DAVIDSON, MG, PHOS, CMP, LIPID, URIC #### [facility] [address] [place] [address] Dr. Sarmad Patino Protein [Mass/Vol] 7.4 g/dL Normal 6.4-8.2 [facility] Comment on above: Performed By: #### D DAVIDSON, MG, PHOS, CMP, LIPID, URIC #### [facility] [address] [place] [address] Dr. Sarmad Patino Sodium [Moles/Vol] 142 mmol/L Normal 136-145 [facility] Comment on above: Performed By: #### D DAVIDSON, MG, PHOS, CMP, LIPID, URIC #### [facility] [address] [place] [address] Dr. Sarmad Patino Urea nitrogen [Mass/Vol] 21.0 mg/dL Critically high 7.0-18.0 [facility] Comment on above: Performed By: #### D DAVIDSON, MG, PHOS, CMP, LIPID, URIC #### [facility] [address] [place] [address] Dr. Sarmad Patino Urea nitrogen/Creatinine [Mass ratio] 25.0 mg/mg Normal [facility] Comment on above: Performed By: #### D DAVIDSON, MG, PHOS, CMP, LIPID, URIC #### [facility] [address] [place] [address] Dr. Sarmad Patino URIC ACID SERUMon 11-07-2021 Urate [Mass/Vol] 5.1 mg/dL Normal 2.6-6.0 [facility] Comment on above: Performed By: #### D DAVIDSON, MG, PHOS, CMP, LIPID, URIC #### [facility] [address] [place], [place] [id number] Dr. Sarmad Patino BOX TEST SENT OUTon 10-16-19 22 SENT TO REF LAB 10/15/2021 Normal [facility] Comment on above: Performed By: #### D DAVIDSON, MG, PHOS, CMP, LIPID, URIC #### [facility] [address] [place] [address] Dr. Sarmad Patino EVEROLIMU, WHOLE BLOODon EVEROLIMUS 6.7 ng/mL Normal 3.0-8.0 [facility] Comment on above: Result Comment: Perf ormed by LC-MS/MS technology. Performed By: #### D DAVIDSON, MG, PHOS, CMP, LIPID, URIC #### [facility] [address] [place] [address] Dr. Sarmad Patino FK506 (TACROLIMUS) WHOLE BLO ODon 10-10-2021 Tacrolimus (FK506), Blood 5.9 ng/mL Normal 2.0-20.0 [facility] Comment on above: Result Comment: Trou gh (immediately following transplant) 15.0 . Trough (steady state, 2 weeks or more after transplant): 3.0 - 8.0 . Performed by LC-MS/MS technology. Performed By: #### D DAVIDSON, MG, PHOS, CMP, LIPID, URIC #### [facility] [address] [place] [address] Dr. Sarmad Patino BILIRUBIN CONJUGATED (DIRECT )on 10-08-2021 BILI, CONJUGATED 0.1 mg/dL Normal 0.0-0.2 [facility] Comment on above: Performed By: #### U MAXI, LIPID, MG, CMP, DBIL, PHOS #### [facility] [address] [place] [address] Dr. Sarmad Patino CBC AUTO DIFFon 10-08-2021 BASO # 0.0 103/ul Normal 0.0-0.1 [facility] Comment on above: Performed By: #### D DAVIDSON, MG, PHOS, CMP, LIPID, URIC #### [facility] [address] [place] [address] Dr. Sarmad Patino Basophils/100 WBC (Bld) 0.1 % Critically low 0.2-2.0 [facility] Comment on above: Performed By: #### D DAVIDSON, MG, PHOS, CMP, LIPID, URIC #### [facility] [address] [place] [address] Dr. Sarmad Patino EO # 0.1 103/ul Normal 0.0-0.7 [facility] Comment on above: Performed By: #### D DAVIDSON, MG, PHOS, CMP, LIPID, URIC #### [facility] [address] [place] [address] Dr. Sarmad Patino Eosinophils/100 WBC (Bld) 1.4 % Normal 0.9-7.0 [facility] Comment on above: Performed By: #### D DAVIDSON, MG, PHOS, CMP, LIPID, URIC #### [facility] [address] [place] [address] Dr. Sarmad Patino Erythrocyte distribution width (RBC) [Ratio] 13.6 % Normal 11.0-15.0 [facility] Comment on above: Performed By: #### D DAVIDSON, MG, PHOS, CMP, LIPID, URIC #### [facility] [address] [place] [address] Dr. Sarmad Patino Hematocrit (Bld) [Volume fraction] 47.5 % Normal 36.0-48.0 [facility] Comment on above: Performed By: #### D DAVIDSON, MG, PHOS, CMP, LIPID, URIC #### [facility] [address] [place] [address] Dr. Sarmad Patino Hemoglobin (Bld) [Mass/Vol] 15.7 g/dL Normal 12.0-16.0 [facility] Comment on above: Performed By: #### D DAVIDSON, MG, PHOS, CMP, LIPID, URIC #### [facility] [address] [place] [address] Dr. Sarmad Patino IG # 0.04 10e3/ul Critically high 0.00-0.03 [facility] Comment on above: Performed By: #### D DAVIDSON, MG, PHOS, CMP, LIPID, URIC #### [facility] [address] [place] [address] Dr. Sarmad Patino IG % 0.5 % Normal 0.0-0.5 [facility] Comment on above: Performed By: #### D DAVIDSON, MG, PHOS, CMP, LIPID, URIC #### [facility] [address] [place] [address] Dr. Sarmad Patino LYMPH # 1.3 103/ul Normal 1.2-3.8 [facility] Comment on above: Performed By: #### D DAVIDSON, MG, PHOS, CMP, LIPID, URIC #### [facility] [address] [place] [address] Dr. Sarmad Patino Lymphocytes/100 WBC (Bld) 15.4 % Critically low 20.5-60.0 [facility] Comment on above: Performed By: #### D DAVIDSON, MG, PHOS, CMP, LIPID, URIC #### [facility] [address] [place] [address] Dr. Sarmad Patino MANUAL DIFF REQ NO Normal [facility] Comment on above: Performed By: #### D DAVIDSON, MG, PHOS, CMP, LIPID, URIC #### [facility] [address] [place] [address] Dr. Sarmad Patino MCH (RBC) [Entitic mass] 29.1 pg Normal 26.7-34.0 [facility] Comment on above: Performed By: #### D DAVIDSON, MG, PHOS, CMP, LIPID, URIC #### [facility] [address] [place] [address] Dr. Sarmad Patino MCHC (RBC) [Mass/Vol] 33.1 g/dL Normal 29.9-35.2 [facility] Comment on above: Performed By: #### D DAVIDSON, MG, PHOS, CMP, LIPID, URIC #### [facility] [address] [place] [address] Dr. Sarmad Patino MCV (RBC) [Entitic vol] 88.0 fL Normal 81.0-99.0 [facility] Comment on above: Performed By: #### D DAVIDSON, MG, PHOS, CMP, LIPID, URIC #### [facility] [address] [place] [address] Dr. Sarmad Patino MONO # 0.9 103/ul Critically high 0.3-0.8 [facility] Comment on above: Performed By: #### D DAVIDSON, MG, PHOS, CMP, LIPID, URIC #### [facility] [address] [place] [address] Dr. Sarmad Patino Monocytes/100 WBC (Bld) 10.2 % Normal 1.7-12.0 [facility] Comment on above: Performed By: #### D DAVIDSON, MG, PHOS, CMP, LIPID, URIC #### [facility] [address] [place] [address] Dr. Sarmad Patino NEUT # 6.1 103/ul Normal 1.4-6.5 [facility] Comment on above: Performed By: #### D DAVIDSON, MG, PHOS, CMP, LIPID, URIC #### [facility] [address] [place] [address] Dr. Sarmad Patino Neutrophils/100 WBC (Bld) 72.4 % Normal 43.0-75.0 [facility] Comment on above: Performed By: #### D DAVIDSON, MG, PHOS, CMP, LIPID, URIC #### [facility] [address] [place] [address] Dr. Sarmad Patino Platelet mean volume (Bld) [Entitic vol] 11.1 fL Normal 9.5-13.5 [facility] Comment on above: Performed By: #### D DAVIDSON, MG, PHOS, CMP, LIPID, URIC #### [facility] [address] [place] [address] Dr. Sarmad Patino PLT 213 103/ul Normal 150-450 [facility] Comment on above: Performed By: #### D DAVIDSON, MG, PHOS, CMP, LIPID, URIC #### [facility] [address] [place] [address] Dr. Sarmad Patino RBC 5.40 106/ul Normal 4.20-5.40 [facility] Comment on above: Performed By: #### D DAVIDSON, MG, PHOS, CMP, LIPID, URIC #### [facility] [address] [place] [address] Dr. Sarmad Patino WBC 8.4 103/ul Normal 4.0-11.0 [facility] Comment on above: Performed By: #### D DAVIDSON, MG, PHOS, CMP, LIPID, URIC #### [facility] [address] [address] [address] Sarmad Patino LIPID PROFILEon 10-08-2021 CHOL-HDL RATIO NORM SEE BELOW Normal [facility] Comment on above: Result Comment: 3.3 - 4.4 LOW RISK 4.4 - 7.1 AVERAGE RISK 7.1 - 11.0 MODERATE RISK >11.0 HIGH RISK Performed By: #### D DAVIDSON, MG, PHOS, CMP, LIPID, URIC #### [facility] [address] [address] [address] Sarmad Patino Cholesterol [Mass/Vol] 155 mg/dL Normal <=200 [facility] Comment on above: Performed By: #### D DAVIDSON, MG, PHOS, CMP, LIPID, URIC #### [facility] [address] [address] [address] Sarmad Patino Cholesterol in HDL [Mass/Vol] 49 mg/dL Normal 40-60 [facility] Comment on above: Performed By: #### D DAVIDSON, MG, PHOS, CMP, LIPID, URIC #### [facility] [address] [place] [address] Dr. Sarmad Patino Cholesterol in LDL [Mass/Vol] 73.8 mg/dL Normal [facility] Comment on above: Performed By: #### D DAVIDSON, MG, PHOS, CMP, LIPID, URIC #### [facility] [address] [address] [address] Sarmad Patino Cholesterol.total/C holesterol in HDL [Mass ratio] 3.2 {ratio} Normal [facility] Comment on above: Performed By: #### D DAVIDSON, MG, PHOS, CMP, LIPID, URIC #### [facility] [address] [place] [address] Dr. Sarmad Patino HDL NORMAL > or = 60 mg/dl - LO W CARDIOVASCULAR RISK <40 mg/dl - HIGH CARDIOVASCULAR RISK Normal [facility] Comment on above: Performed By: #### D DAVIDSON, MG, PHOS, CMP, LIPID, URIC #### [facility] [address] [address] [address] Sarmad Patino LDL CALC NORMAL SEE BELOW Normal [facility] Comment on above: Result Comment: <100 mg/dl OPTIMAL 100 - 129 mg/dl NEAR OR ABOVE OPTIMAL 130 - 159 mg/dl BORDERLINE HIGH 160 - 189 mg/dl HIGH >190 mg/dl VERY HIGH Performed By: #### D DAVIDSON, MG, PHOS, CMP, LIPID, URIC #### [facility] [address] [address] [address] Sarmad Patino Triglyceride [Mass/Vol] 161 mg/dL Critically high <=150 [facility] Comment on above: Performed By: #### D DAVIDSON, MG, PHOS, CMP, LIPID, URIC #### [facility] [address] [address] [address] Sarmad Patino VLDL CALC 32.2 mg/dL Normal [facility] Comment on above: Performed By: #### D DAVIDSON, MG, PHOS, CMP, LIPID, URIC #### [facility] [address] [address] [address] Sarmad Patino MAGNESIUMon 10-08-2021 Magnesium [Mass/Vol] 1.6 mg/dL Critically low 1.8-2.4 [facility] Comment on above: Performed By: #### U MAXI, LIPID, MG, CMP, DBIL, PHOS #### [facility] [address] [address] [address] Sarmad Patino PHOSPHORUSon 10-08-2021 Phosphate [Mass/Vol] 3.5 mg/dL Normal 2.6-4.7 [facility] Comment on above: Performed By: #### U MAXI, LIPID, MG, CMP, DBIL, PHOS #### [facility] [address] [place] [address] Dr. Sarmad Patino PROF 14(COMP METB)on 022 Albumin [Mass/Vol] 3.6 g/dL Normal 3.4-5.0 [facility] Comment on above: Performed By: #### D DAVIDSON, MG, PHOS, CMP, LIPID, URIC #### [facility] [address] [address] [address] Sarmad Patino Albumin/Globulin [Mass ratio] 0.9 {ratio} Normal [facility] Comment on above: Performed By: #### D DAVIDSON, MG, PHOS, CMP, LIPID, URIC #### [facility] [address] [place] [address] Dr. Sarmad Patino ALP [Catalytic activity/Vol] 150 U/L Critically high 46-116 [facility] Comment on above: Performed By: #### D DAVIDSON, MG, PHOS, CMP, LIPID, URIC #### [facility] [address] [address] [address] Sarmad Patino ALT [Catalytic activity/Vol] 21 U/L Normal 14-59 [facility] Comment on above: Performed By: #### D DAVIDSON, MG, PHOS, CMP, LIPID, URIC #### [facility] [address] [place] [address] Dr. Sarmad Patino Anion gap [Moles/Vol] 14.0 mmol/L Normal [facility] Comment on above: Performed By: #### D DAVIDSON, MG, PHOS, CMP, LIPID, URIC #### [facility] [address] [place] [address] Dr. Sarmad Patino AST [Catalytic activity/Vol] 13 U/L Critically low 15-37 [facility] Comment on above: Performed By: #### D DAVIDSON, MG, PHOS, CMP, LIPID, URIC #### [facility] [address] [address] [address] Sarmad Patino Bilirubin [Mass/Vol] 0.5 mg/dL Normal 0.2-1.0 [facility] Comment on above: Performed By: #### D DAVIDSON, MG, PHOS, CMP, LIPID, URIC #### [facility] [address] [place] [address] Dr. Sarmad Patino Calcium [Mass/Vol] 9.8 mg/dL Normal 8.5-10.1 [facility] Comment on above: Performed By: #### D DAVIDSON, MG, PHOS, CMP, LIPID, URIC #### [facility] [address] [address] [address] Sarmad Patino Chloride [Moles/Vol] 105 mmol/L Normal 98-107 [facility] Comment on above: Performed By: #### D DAVIDSON, MG, PHOS, CMP, LIPID, URIC #### [facility] [address] [address] [address] Sarmad Patino CO2 [Moles/Vol] 25.9 mmol/L Normal 21.0-32.0 [facility] Comment on above: Performed By: #### D DAVIDSON, MG, PHOS, CMP, LIPID, URIC #### [facility] [address] [address] [address] Sarmad Patino Creatinine [Mass/Vol] 0.81 mg/dL Normal 0.55-1.02 [facility] Comment on above: Performed By: #### D DAVIDSON, MG, PHOS, CMP, LIPID, URIC #### [facility] [address] [address] [address] Sarmad Patino EGFR-AF [place] >60 Normal >=60 [facility] Comment on above: Performed By: #### D DAVIDSON, MG, PHOS, CMP, LIPID, URIC #### [facility] [address] [place] [address] Dr. Sarmad Patino EGFR-NON AF [place] >60 Normal >=60 [facility] Comment on above: Performed By: #### D DAVIDSON, MG, PHOS, CMP, LIPID, URIC #### [facility] [address] [address] [address] Sarmad Patino Globulin (S) [Mass/Vol] 3.8 g/dL Normal [facility] Comment on above: Performed By: #### D DAVIDSON, MG, PHOS, CMP, LIPID, URIC #### [facility] [address] [address] [address] Sarmad Patino Glucose [Mass/Vol] 101 mg/dL Normal 74-106 [facility] Comment on above: Performed By: #### D DAVIDSON, MG, PHOS, CMP, LIPID, URIC #### [facility] [address] [place] [address] Dr. Sarmad Patino Potassium [Moles/Vol] 3.9 mmol/L Normal 3.5-5.1 [facility] Comment on above: Performed By: #### D DAVIDSON, MG, PHOS, CMP, LIPID, URIC #### [facility] [address] [address] [address] Sarmad Patino Protein [Mass/Vol] 7.4 g/dL Normal 6.4-8.2 [facility] Comment on above: Performed By: #### D DAVIDSON, MG, PHOS, CMP, LIPID, URIC #### [facility] [address] [address] [address] Sarmad Patino Sodium [Moles/Vol] 141 mmol/L Normal 136-145 [facility] Comment on above: Performed By: #### D DAVIDSON, MG, PHOS, CMP, LIPID, URIC #### [facility] [address] [address] [address] Sarmad Patino Urea nitrogen [Mass/Vol] 18.0 mg/dL Normal 7.0-18.0 [facility] Comment on above: Performed By: #### D DAVIDSON, MG, PHOS, CMP, LIPID, URIC #### [facility] [address] [address] [address] Sarmad Patino Urea nitrogen/Creatinine [Mass ratio] 22.2 mg/mg Normal [facility] Comment on above: Performed By: #### D DAVIDSON, MG, PHOS, CMP, LIPID, URIC #### [facility] [address] [address] [address] Sarmad Patino URIC ACID SERUMon 10-08-2021 Urate [Mass/Vol] 4.7 mg/dL Normal 2.6-6.0 [facility] Comment on above: Performed By: #### D DAVIDSON, MG, PHOS, CMP, LIPID, URIC #### [facility] [address] [address] [address] Sarmad CHRISTIEMU, WHOLE BLOODon EVEROLIMUS 8.0 ng/mL Normal 3.0-8.0 [facility] Comment on above: Result Comment: Perf ormed by LC-MS/MS technology. Performed By: #### U MAXI, LIPID, MG, CMP, DBIL, PHOS #### [facility] [address] [place] [address] Dr. Sarmad Patino FK506 (TACROLIMUS) WHOLE BLO ODon 09-14-2021 Tacrolimus (FK506), Blood 9.3 ng/mL Normal 2.0-20.0 [facility] Comment on above: Result Comment: Trou gh (immediately following transplant) 15.0 . Trough (steady state, 2 weeks or more after transplant): 3.0 - 8.0 . Performed by LC-MS/MS technology. Performed By: #### U MAXI, LIPID, MG, CMP, DBIL, PHOS #### [facility] [address] [place] [address] Dr. Sarmad Patino BK VIRUS PCR QUANTon 022 BKV DNA QUANT PCR PLASMA Negative Normal Negative [facility] Comment on above: Result Comment: No B K DNA detected. . The linear range of the assay is 22 - 100,000,000 IU/mL. Performed By: #### D DAVIDSON, MG, PHOS, CMP, LIPID, URIC #### [facility] [address] [address] [address] Sarmad Patino Log10 BKV DNA Plasma Normal [facility] Comment on above: Performed By: #### D DAVIDSON, MG, PHOS, CMP, LIPID, URIC #### [facility] [address] [place] [address] Dr. Sarmad Patino BILIRUBIN CONJUGATED (DIRECT )on 09-10-2021 BILI, CONJUGATED 0.1 mg/dL Normal 0.0-0.2 [facility] Comment on above: Performed By: #### D DAVIDSON, MG, PHOS, CMP, LIPID, URIC #### [facility] [address] [place] [address] Dr. Sarmad Patino CBC AUTO DIFFon 09-10-2021 BASO # 0.0 103/ul Normal 0.0-0.1 [facility] Comment on above: Performed By: #### D DAVIDSON, MG, PHOS, CMP, LIPID, URIC #### [facility] [address] [place] [address] Dr. Sarmad Patino Basophils/100 WBC (Bld) 0.1 % Critically low 0.2-2.0 [facility] Comment on above: Performed By: #### D DAVIDSON, MG, PHOS, CMP, LIPID, URIC #### [facility] [address] [place] [address] Dr. Sarmda Patino EO # 0.2 103/ul Normal 0.0-0.7 [facility] Comment on above: Performed By: #### D DAVIDSON, MG, PHOS, CMP, LIPID, URIC #### [facility] [address] [place] [address] Dr. Sarmad Patino Eosinophils/100 WBC (Bld) 2.3 % Normal 0.9-7.0 [facility] Comment on above: Performed By: #### D DAVIDSON, MG, PHOS, CMP, LIPID, URIC #### [facility] [address] [place] [address] Dr. Sarmad Patino Erythrocyte distribution width (RBC) [Ratio] 13.6 % Normal 11.0-15.0 [facility] Comment on above: Performed By: #### D DAVIDSON, MG, PHOS, CMP, LIPID, URIC #### [facility] [address] [place] [address] Dr. Sarmad Patnio Hematocrit (Bld) [Volume fraction] 45.1 % Normal 36.0-48.0 [facility] Comment on above: Performed By: #### D DAVIDSON, MG, PHOS, CMP, LIPID, URIC #### [facility] [address] [place] [address] Dr. Sarmad Patino Hemoglobin (Bld) [Mass/Vol] 14.7 g/dL Normal 12.0-16.0 [facility] Comment on above: Performed By: #### D DAVIDSON, MG, PHOS, CMP, LIPID, URIC #### [facility] [address] [place] [address] Dr. Sarmad Patino IG # 0.03 10e3/ul Normal 0.00-0.03 [facility] Comment on above: Performed By: #### D DAVIDSON, MG, PHOS, CMP, LIPID, URIC #### [facility] [address] [place] [address] Dr. Sarmad Patino IG % 0.4 % Normal 0.0-0.5 [facility] Comment on above: Performed By: #### D DAVIDSON, MG, PHOS, CMP, LIPID, URIC #### [facility] [address] [place] [address] Dr. Sarmad Patino LYMPH # 1.3 103/ul Normal 1.2-3.8 [facility] Comment on above: Performed By: #### D DAVIDSON, MG, PHOS, CMP, LIPID, URIC #### [facility] [address] [place] [address] Dr. Sarmad Patino Lymphocytes/100 WBC (Bld) 18.9 % Critically low 20.5-60.0 [facility] Comment on above: Performed By: #### D DAVIDSON, MG, PHOS, CMP, LIPID, URIC #### [facility] [address] [place] [address] Dr. Sarmad Patino MANUAL DIFF REQ NO Normal [facility] Comment on above: Performed By: #### D DAVIDSON, MG, PHOS, CMP, LIPID, URIC #### [facility] [address] [place] [address] Dr. Sarmad Patino MCH (RBC) [Entitic mass] 29.0 pg Normal 26.7-34.0 [facility] Comment on above: Performed By: #### D DAVIDSON, MG, PHOS, CMP, LIPID, URIC #### [facility] [address] [place] [address] Dr. Sarmad Patino MCHC (RBC) [Mass/Vol] 32.6 g/dL Normal 29.9-35.2 [facility] Comment on above: Performed By: #### D DAVIDSON, MG, PHOS, CMP, LIPID, URIC #### [facility] [address] [place] [address] Dr. Sarmad Patino MCV (RBC) [Entitic vol] 89.0 fL Normal 81.0-99.0 [facility] Comment on above: Performed By: #### D DAVIDSON, MG, PHOS, CMP, LIPID, URIC #### [facility] [address] [place] [address] Dr. Sarmad Patino MONO # 0.8 103/ul Normal 0.3-0.8 [facility] Comment on above: Performed By: #### D DAVIDSON, MG, PHOS, CMP, LIPID, URIC #### [facility] [address] [place] [address] Dr. Sarmad Patino Monocytes/100 WBC (Bld) 11.9 % Normal 1.7-12.0 [facility] Comment on above: Performed By: #### D DAVIDSON, MG, PHOS, CMP, LIPID, URIC #### [facility] [address] [place] [address] Dr. Sarmad Patino NEUT # 4.6 103/ul Normal 1.4-6.5 [facility] Comment on above: Performed By: #### D DAVIDSON, MG, PHOS, CMP, LIPID, URIC #### [facility] [address] [place] [address] Dr. Sarmad Patino Neutrophils/100 WBC (Bld) 66.4 % Normal 43.0-75.0 [facility] Comment on above: Performed By: #### D DAVIDSON, MG, PHOS, CMP, LIPID, URIC #### [facility] [address] [place] [address] Dr. Sarmad Patino Platelet mean volume (Bld) [Entitic vol] 10.6 fL Normal 9.5-13.5 [facility] Comment on above: Performed By: #### D DAVIDSON, MG, PHOS, CMP, LIPID, URIC #### [facility] [address] [place] [address] Dr. Sarmad Patino PLT 233 103/ul Normal 150-450 [facility] Comment on above: Performed By: #### D DAVIDSON, MG, PHOS, CMP, LIPID, URIC #### [facility] [address] [place] [address] Dr. Sarmad Patino RBC 5.07 106/ul Normal 4.20-5.40 [facility] Comment on above: Performed By: #### D DAVIDSON, MG, PHOS, CMP, LIPID, URIC #### [facility] [address] [address] [address] Sarmad Patino WBC 6.9 103/ul Normal 4.0-11.0 [facility] Comment on above: Performed By: #### D DAVIDSON, MG, PHOS, CMP, LIPID, URIC #### [facility] [address] [address] [address] Sarmad Patino GLYCOHEMOGLOBIN A1Con 2021 ADA RECOMMENDATION SEE BELOW Normal [facility] Comment on above: Result Comment: ADA RECOMMENDED LIMIT 4.0 - 6.0 ADA THERAPEUTIC TARGET < 7.0 ACTION SUGGESTED > 7.0 Performed By: #### D DAVIDSON, MG, PHOS, CMP, LIPID, URIC #### [facility] [address] [place] [address] Dr. Sarmad Patino Glucose [Mass/Vol] 120 mg/dL Normal [facility] Comment on above: Performed By: #### D DAVIDSON, MG, PHOS, CMP, LIPID, URIC #### [facility] [address] [address] [address] Sarmad Patino HbA1c (Bld) [Mass fraction] 5.8 % Normal 4.5-6.2 [facility] Comment on above: Performed By: #### D DAVIDSON, MG, PHOS, CMP, LIPID, URIC #### [facility] [address] [place] [address] Dr. Sarmad Patino LIPID PROFILEon 09-10-2021 CHOL-HDL RATIO NORM SEE BELOW Normal [facility] Comment on above: Result Comment: 3.3 - 4.4 LOW RISK 4.4 - 7.1 AVERAGE RISK 7.1 - 11.0 MODERATE RISK >11.0 HIGH RISK Performed By: #### D DAVIDSON, MG, PHOS, CMP, LIPID, URIC #### [facility] [address] [address] [address] Sarmad Patino Cholesterol [Mass/Vol] 150 mg/dL Normal <=200 [facility] Comment on above: Performed By: #### D DAVIDSON, MG, PHOS, CMP, LIPID, URIC #### [facility] [address] [address] [address] Sarmad Patino Cholesterol in HDL [Mass/Vol] 47 mg/dL Normal 40-60 [facility] Comment on above: Performed By: #### D DAVIDSON, MG, PHOS, CMP, LIPID, URIC #### [facility] [address] [address] [address] Sarmad Patino Cholesterol in LDL [Mass/Vol] 78.4 mg/dL Normal [facility] Comment on above: Performed By: #### D DAVIDSON, MG, PHOS, CMP, LIPID, URIC #### [facility] [address] [address] [address] Sarmad Patino Cholesterol.total/C holesterol in HDL [Mass ratio] 3.2 {ratio} Normal [facility] Comment on above: Performed By: #### D DAVIDSON, MG, PHOS, CMP, LIPID, URIC #### [facility] [address] [address] [address] Sarmad Patino HDL NORMAL > or = 60 mg/dl - LO W CARDIOVASCULAR RISK <40 mg/dl - HIGH CARDIOVASCULAR RISK Normal [facility] Comment on above: Performed By: #### D DAVIDSON, MG, PHOS, CMP, LIPID, URIC #### [facility] [address] [address] [address] Sarmad Patino LDL CALC NORMAL SEE BELOW Normal [facility] Comment on above: Result Comment: <100 mg/dl OPTIMAL 100 - 129 mg/dl NEAR OR ABOVE OPTIMAL 130 - 159 mg/dl BORDERLINE HIGH 160 - 189 mg/dl HIGH >190 mg/dl VERY HIGH Performed By: #### D DAVIDSON, MG, PHOS, CMP, LIPID, URIC #### [facility] [address] [address] [address] Sarmad Patino Triglyceride [Mass/Vol] 123 mg/dL Normal <=150 [facility] Comment on above: Performed By: #### D DAVIDSON, MG, PHOS, CMP, LIPID, URIC #### [facility] [address] [address] [address] Sarmad Patino VLDL CALC 24.6 mg/dL Normal [facility] Comment on above: Performed By: #### D DAVIDSON, MG, PHOS, CMP, LIPID, URIC #### [facility] [address] [place] [address] Dr. Sarmad Patino MAGNESIUMon 09-10-2021 Magnesium [Mass/Vol] 1.5 mg/dL Critically low 1.8-2.4 [facility] Comment on above: Performed By: #### D DAVIDSON, MG, PHOS, CMP, LIPID, URIC #### [facility] [address] [place] [address] Dr. Sarmad Patino PHOSPHORUSon 09-10-2021 Phosphate [Mass/Vol] 3.8 mg/dL Normal 2.6-4.7 [facility] Comment on above: Performed By: #### D DAVIDSON, MG, PHOS, CMP, LIPID, URIC #### [facility] [address] [place] [address] Dr. Sarmad Patino PROF 14(COMP METB)on 022 Albumin [Mass/Vol] 3.4 g/dL Normal 3.4-5.0 [facility] Comment on above: Performed By: #### D DAVIDSON, MG, PHOS, CMP, LIPID, URIC #### [facility] [address] [place] [address] Dr. Sarmad Patino Albumin/Globulin [Mass ratio] 0.9 {ratio} Normal [facility] Comment on above: Performed By: #### D DAVIDSON, MG, PHOS, CMP, LIPID, URIC #### [facility] [address] [place] [address] Dr. Sarmad Patino ALP [Catalytic activity/Vol] 143 U/L Critically high 46-116 [facility] Comment on above: Performed By: #### D DAVIDSON, MG, PHOS, CMP, LIPID, URIC #### [facility] [address] [place] [address] Dr. Sarmad Patino ALT [Catalytic activity/Vol] 19 U/L Normal 14-59 [facility] Comment on above: Performed By: #### D DAVIDSON, MG, PHOS, CMP, LIPID, URIC #### [facility] [address] [place] [address] Dr. Sarmad Patino Anion gap [Moles/Vol] 13.4 mmol/L Normal [facility] Comment on above: Performed By: #### D DAVIDSON, MG, PHOS, CMP, LIPID, URIC #### [facility] [address] [place] [address] Dr. Sarmad Patino AST [Catalytic activity/Vol] 24 U/L Normal 15-37 [facility] Comment on above: Performed By: #### D DAVIDSON, MG, PHOS, CMP, LIPID, URIC #### [facility] [address] [place] [address] Dr. Sarmad Patino Bilirubin [Mass/Vol] 0.4 mg/dL Normal 0.2-1.0 [facility] Comment on above: Performed By: #### D DAVIDSON, MG, PHOS, CMP, LIPID, URIC #### [facility] [address] [place] [address] Dr. Sarmad Patino Calcium [Mass/Vol] 9.3 mg/dL Normal 8.5-10.1 [facility] Comment on above: Performed By: #### D DAVIDSON, MG, PHOS, CMP, LIPID, URIC #### [facility] [address] [place] [address] Dr. Sarmad Patino Chloride [Moles/Vol] 106 mmol/L Normal 98-107 [facility] Comment on above: Performed By: #### D DAVIDSON, MG, PHOS, CMP, LIPID, URIC #### [facility] [address] [place] [address] Dr. Sarmad Patino CO2 [Moles/Vol] 25.5 mmol/L Normal 21.0-32.0 [facility] Comment on above: Performed By: #### D DAVIDSON, MG, PHOS, CMP, LIPID, URIC #### [facility] [address] [place] [address] Dr. Sarmad Patino Creatinine [Mass/Vol] 0.85 mg/dL Normal 0.55-1.02 [facility] Comment on above: Performed By: #### D DAVIDSON, MG, PHOS, CMP, LIPID, URIC #### [facility] [address] [place] [address] Dr. Sarmad Patino EGFR-AF [place] >60 Normal >=60 [facility] Comment on above: Performed By: #### D DAVIDSON, MG, PHOS, CMP, LIPID, URIC #### [facility] [address] [address] [address] Sarmad Patino EGFR-NON AF [place] >60 Normal >=60 [facility] Comment on above: Performed By: #### D DAVIDSON, MG, PHOS, CMP, LIPID, URIC #### [facility] [address] [address] [address] Sarmad Patino Globulin (S) [Mass/Vol] 3.8 g/dL Normal [facility] Comment on above: Performed By: #### D DAVIDSON, MG, PHOS, CMP, LIPID, URIC #### [facility] [address] [address] [address] Sarmad Patino Glucose [Mass/Vol] 100 mg/dL Normal 74-106 [facility] Comment on above: Performed By: #### D DAVIDSON, MG, PHOS, CMP, LIPID, URIC #### [facility] [address] [address] [address] Sarmad Patino Potassium [Moles/Vol] 3.9 mmol/L Normal 3.5-5.1 [facility] Comment on above: Performed By: #### D DAVIDSON, MG, PHOS, CMP, LIPID, URIC #### [facility] [address] [address] [address] Sarmad Patino Protein [Mass/Vol] 7.2 g/dL Normal 6.4-8.2 [facility] Comment on above: Performed By: #### D DAVIDSON, MG, PHOS, CMP, LIPID, URIC #### [facility] [address] [address] [address] Sarmad Patino Sodium [Moles/Vol] 141 mmol/L Normal 136-145 [facility] Comment on above: Performed By: #### D DAVIDSON, MG, PHOS, CMP, LIPID, URIC #### [facility] [address] [address] [address] Sarmad Patino Urea nitrogen [Mass/Vol] 16.0 mg/dL Normal 7.0-18.0 [facility] Comment on above: Performed By: #### D DAVIDSON, MG, PHOS, CMP, LIPID, URIC #### [facility] [address] [address] [address] Sarmad Patino Urea nitrogen/Creatinine [Mass ratio] 18.8 mg/mg Normal [facility] Comment on above: Performed By: #### D DAVIDSON, MG, PHOS, CMP, LIPID, URIC #### [facility] [address] [address] [address] Sarmad Patino URIC ACID SERUMon 09-10-2021 Urate [Mass/Vol] 4.8 mg/dL Normal 2.6-6.0 [facility] Comment on above: Performed By: #### D DAVIDSON, MG, PHOS, CMP, LIPID, URIC #### [facility] [address] [address] [address] Sarmad Patino Urinalysis - AUTOMATEDon Appearance (U) cloudy [employer] Other Bilirubin Ql (U) Negative [employer] Other Color (U) pale yellow [employer] Other Glucose Ql (U) Negative [employer] Other Hemoglobin Ql (U) moderate [employer] Other Ketones Ql (U) Negative [employer] Other Leukocyte esterase Test strip Ql (U) moderate [employer] Other Nitrite Ql (U) Negative [employer] Other pH (U) 7.0 [pH] [employer] Other Protein Ql (U) Negative [employer] Other Specific gravity (U) [Rel density] 1.010 [employer] Other Urobilinogen (U) [Mass/Vol] 0.2 mg/dL [employer] Other Urinalysis - AUTOMATED [employer] Other Urine Cultureon 08-14-2021 Urine Culture 100,000 [employer] Other Urine Culture <16 Susceptible [employer] Other Urine Culture >16 Resistant [employer] Other Urine Culture <4 Susceptible [employer] Other Urine Culture <2 Susceptible [employer] Other Urine Culture <1 Susceptible [employer] Other Urine Culture <0.5 Susceptible [employer] Other Urine Culture <32 Susceptible [employer] Other Urine Culture <2/38 Susceptible [employer] Other Bacteria identified Cx Nom (U) Reason for Exam Dysuria Urine ORGANISM: Klebsiella pneumoniae (O:KLEPNE) [place] Count 100,000 Aerobic SHYLA Charge (NUC86) --- [...] RESISTANT TO ALL B-LACTAM DRUGS. PERFORMED BY: [facility] [address] [place] [address] PATHOLOGIST SKATING CARHOP LOVELY COLE M.D. Normal [facility] Comment on above: Performed By: #### C UU #### [facility] [address] [place] [address] *URINE CULTUREon 12-31-2017 Bacteria identified in Urine by Culture Clinical Report: (D) Specimen: URINE Collected: 12/31/2017 13:40 Status: Final Last Updated: 01/04/2018 12:38 ISO (Final) Diphtheroids >100,000 Cfu/Ml 2 Morphologies ISO (Final) Aerococcus urinae 50,000 - 100,000 Cfu/mL Result changed by [email or web address] on 01/04/2018 12:38. The previous result was: ISO (Prelim) Normal [facility] Comment on above: Performed By: #### 4 1000, 53396, 53239, 48711, 56244, 45273 ####[facility] CBC W/DIFFon 12-25-2017 ABS BASOPHILS 0.0 10*3/uL Normal 0.0-0.2 [facility] Comment on above: Performed By: #### 5 0103 ####[facility] ABS IMM GRANS 0.0 10*3/uL Normal 0.0-0.2 [facility] Comment on above: Performed By: #### 5 0103 ####[facility] ABS NEUTROPHILS 5.0 10*3/uL Normal 1.6-7.6 [facility] Comment on above: Performed By: #### 5 0103 ####[facility] [place] [address], [facility] Basophils Auto #/vol (Bld) 0.1 % Normal 0.0-1.0 [facility] Comment on above: Performed By: #### 5 0103 ####[facility] [facility] [place] [address], [facility] Eosinophils Auto #/vol (Bld) 0.1 10*3/uL Normal 0.0-0.5 [facility] Comment on above: Performed By: #### 5 0103 ####[facility] [place] [address], [facility] Eosinophils/100 WBC Auto (Bld) 1.6 % Normal 0.0-6.0 [facility] Comment on above: Performed By: #### 5 0103 ####[facility] Erythrocyte distribution width Auto Ratio (RBC) 14.6 % Normal 11.5-15.0 [facility] Comment on above: Performed By: #### 5 0103 ####[facility] Hematocrit Auto Volume Fraction (Bld) 44.9 % Normal 36.0-45.0 [facility] Comment on above: Performed By: #### 5 0103 ####[facility] Hemoglobin mass conc (Bld) 14.9 g/dL Normal 12.0-15.0 [facility] Comment on above: Performed By: #### 5 3 ####[facility] [place] [address], [facility] IMMATURE GRANS 0.4 % Normal 0.0-1.0 [facility] Comment on above: Performed By: #### 5 3 ####[facility] Lymphocytes Auto #/vol (Bld) 1.0 10*3/uL Low 1.2-4.0 [facility] Comment on above: Performed By: #### 3 ####[facility] Lymphocytes/100 WBC Auto (Bld) 14.9 % Low 20.0-45.0 [facility] Comment on above: Performed By: #### 102 ####[facility] MCH Auto Entitic mass (RBC) 28.8 pg Normal 27.0-33.0 [facility] Comment on above: Performed By: #### 102 ####[facility] MCHC Auto mass conc (RBC) 33.2 g/dL Normal 32.0-35.0 [facility] Comment on above: Performed By: #### 3 ####[facility] MCV Auto Entitic volume (RBC) 86.7 fL Normal 82.0-98.0 [facility] Comment on above: Performed By: #### 102 ####[facility] Monocytes Auto #/vol (Bld) 0.7 10*3/uL Normal 0.1-1.0 [facility] Comment on above: Performed By: #### 102 ####[facility] [place] [address] MONOS 10.6 % Normal 5.0-12.0 [facility] Comment on above: Performed By: #### 5 0103 ####[facility] [facility].[address] Neutrophils/100 WBC Auto (Bld) 72.4 % High 40.0-72.0 [facility] Comment on above: Performed By: #### 5 0103 ####[facility] [facility].[address] Nucleated RBC/100 WBC Ratio (Bld) 0 % Normal 0-0 [facility] Comment on above: Performed By: #### 5 0103 ####[facility] [facility].[address] PLAT CNT 203 10*3/uL Normal 150-400 [facility] Comment on above: Performed By: #### 5 0103 ####[facility] [facility].[address] RBC Auto #/vol (Bld) 5.18 10*6/uL High 3.80-5.00 [facility] Comment on above: Performed By: #### 5 0103 ####[facility] [facility].[address] WBC Auto #/vol (Bld) 6.90 10*3/uL Normal 4.00-10.60 [facility] Comment on above: Performed By: #### 5 0103 ####[facility] [facility].[address] COMP METABOLIC PANELon 12-25 Albumin mass conc 4.3 g/dL Normal 3.5-5.7 [facility] Comment on above: Performed By: #### 4 1000, 50190, 69843, 55628, 83446, 79182 ####[facility] [facility].[address] ALKALINE PHOSPH 118 IU/L High 34-104 [facility] Comment on above: Performed By: #### 4 1000, 92581, 47356, 16049, 86237, 33482 ####[facility] [place] [address], [facility] ALT enzyme act/vol 11 U/L Normal 7-52 [facility] Comment on above: Performed By: #### 4 1000, 06669, 23129, 70745, 66833, 13355 ####[facility] [place] [address], [facility] AST enzyme act/vol 17 U/L Normal 13-39 [facility] Comment on above: Performed By: #### 4 1000, 27984, 47478, 72741, 12914, 39512 ####[facility] [place] [address], [facility] Bilirubin mass conc 0.4 mg/dL Normal 0.3-1.0 [facility] Comment on above: Performed By: #### 4 1000, 11082, 40529, 25498, 22348, 21474 ####[facility] [place] [address], [facility] Calcium mass conc 9.8 mg/dL Normal 8.6-10.3 [facility] Comment on above: Performed By: #### 4 1000, 67242, 80601, 18848, 61997, 18080 ####[facility] [place] [address], [place] Chloride molar conc 104 mmol/L Normal 98-107 [facility] Comment on above: Performed By: #### 4 1000, 13764, 32118, 54161, 72490, 76278 ####[facility] [place] [address], [place] CO2 molar conc 27 mmol/L Normal 21-31 [facility] Comment on above: Performed By: #### 4 1000, 99242, 17074, 18961, 05717, 86789 ####[facility] [place] [address], [facility] Creatinine mass conc 0.76 mg/dL Normal 0.60-1.20 [facility] Comment on above: Performed By: #### 4 1000, 74599, 29526, 82498, 23893, 61239 ####[facility] [place] [address], [facility] GFR/1.73 sq M predicted among blacks MDRD vol rate/area (S/P/Bld) mL/min/{1.73_m2} Normal >60 [facility] Comment on above: Performed By: #### 4 1000, 07680, 33901, 39820, 27733, 79550 ####[facility] [place] [address], [facility] GFR/1.73 sq M predicted among non-blacks MDRD vol rate/area (S/P/Bld) mL/min/{1.73_m2} Normal >60 [facility] Comment on above: Performed By: #### 4 1000, 14915, 64824, 31580, 66916, 06317 ####[facility] [place] [address], [facility] Glucose mass conc 94 mg/dL Normal 70-100 [facility] Comment on above: Performed By: #### 4 1000, 71245, 11977, 13623, 29283, 16955 ####[facility] [place] [address], [facility] Potassium molar conc 3.9 mmol/L Normal 3.5-5.1 [facility] Comment on above: Performed By: #### 4 1000, 86634, 84204, 79805, 36716, 60136 ####[facility]3000 [address] Protein mass conc 7.2 g/dL Normal 6.0-8.3 [facility] Comment on above: Performed By: #### 4 1000, 03309, 33944, 64200, 83925, 35491 ####[facility]3000 [facility].[address] Sodium molar conc 140 mmol/L Normal 136-145 [facility] Comment on above: Performed By: #### 4 1000, 73864, 93526, 34608, 71070, 21303 ####[facility] [facility].[address] Urea nitrogen mass conc 15 mg/dL Normal 7-25 [facility] Comment on above: Performed By: #### 4 1000, 57801, 83986, 99089, 99550, 52687 ####[facility] [facility].[address] DIRECT BILIon 12-25-2017 Bilirubin.direct mass conc 0.1 mg/dL Normal 0.0-0.2 [facility] Comment on above: Performed By: #### 4 1000, 55892, 80169, 33444, 07374, 92521 ####[facility] [facility].[address] EVEROLIMUS [id number] 8 EVEROLIMUS 4.7 ng/mL Normal [facility] Comment on above: Result Comment: Ther [...] the transplantcenter.Test developed and characteristics determined by [employer]. See Compliance Statement B: [employer]/CSPerformed by [employer],[address] [place] [address] mow.[employer], Leonid Antonio MD - Lab. Director LIPID PROFILEon 12-25-2017 Cholesterol in HDL mass conc 51 mg/dL Normal 23-92 [facility] Comment on above: Result Comment: Slig ht variation in normal range could be due to gender and/or age.HDL CHOLESTEROL REFERENCE RANGE:20 years and older Cardiovascular Risk> or =60 mg/dL Busqosacz69 TO 59 mg/dL Low Risk<40 mg/dL High Risk Performed By: #### 4 5506, 08725, 19644, 74428, 98941, 90000 ####[facility] [facility].[address] Cholesterol in LDL mass conc 58 mg/dL Normal 0-130 [facility] Comment on above: Result Comment: LDL IS A CALCULATIONLDL IS ONLY VALID IF THE TRIG IS LESS THAN 400. Performed By: #### 4 5506, 04988, 08366, 29330, 92692, 74685 ####[facility] [facility] [place] [place] [address], [facility] Cholesterol mass conc 122 mg/dL Normal 120-200 [facility] Comment on above: Result Comment: CHOL ESTEROL REFERENCE RANGE:20 YEARS AND OLDER CARDIOVASCULAR RISKLess than 200 mg/dl Low Ndrk376 to 239 mg/dl Borderline Xhkr078 mg/dl and greater High Risk Performed By: #### 4 5506, 11184, 55788, 93773, 65184, 07063 ####[facility] [place] [address], [facility] Cholesterol.total/C holesterol in HDL mass ratio 2.4 {ratio} Normal .0-4.5 [facility] Comment on above: Performed By: #### 4 5506, 07724, 56049, 59290, 29367, 47842 ####[facility] NON-HDL CHOLESTEROL 71 mg/dL Normal [facility] Comment on above: Performed By: #### 4 5506, 45411, 50111, 98392, 70279, 06594 ####[facility]3000 [facility].[address] Triglyceride mass conc 65 mg/dL Normal 40-149 [facility] Comment on above: Result Comment: TRIG LYCERIDE REFERENCE RANGE:20 YEARS AND OLDER CARDIOVASCULAR RISKLESS THAN 150 mg/dl LOW [id number] TO 199 mg/dl BORDERLINE YUEQ442 mg/dl AND GREATER HIGH RISK Performed By: #### 4 5506, 81676, 44893, 76962, 11844, 54177 ####[facility]3000 [facility].[address] VLDL CHOL 13 mg/dL Normal 0-40 [facility] Comment on above: Performed By: #### 4 5506, 43861, 94518, 38778, 60550, 33045 ####[facility] [place] [address], [facility] MAGNESIUM BLOODon 12-25-2017 Magnesium mass conc 1.8 mg/dL Low 1.9-2.7 [facility] Comment on above: Performed By: #### 4 1000, 33057, 71325, 91591, 03727, 51387 ####[facility] [place] [address], [facility] PHOSPHORUS BLOODon 8 Phosphate mass conc 3.4 mg/dL Normal 2.5-5.0 [facility] Comment on above: Performed By: #### 4 5506, 49478, 28058, 79559, 34265, 84017 ####[facility] TACROLIMUSon 12-25-2017 Tacrolimus mass conc (Bld) 6.4 ng/mL Normal 5.0-20.0 [facility] Comment on above: Result Comment: The [employer] Tacrolimus assay is a delayed one-step immunoassayfor the quantitative determination of tacrolimus in human whole bloodusing the chemiluminescent microparticle immunoassay (CMIA) technologywith flexible assay protocols, referred to as Chemiflex. Performed By: #### 4 1000, 86293, 45618, 16284, 13887, 83367 ####[facility] URIC ACID BLOODon 12-25-2017 Urate mass conc 4.7 mg/dL Normal 2.3-6.6 [facility] Comment on above: Performed By: #### 4 5506, 61322, 97212, 81735, 79469, 62652 ####[facility] CBC W/DIFFon 10-30-2017 ABS BASOPHILS 0.0 10*3/uL Normal 0.0-0.2 [facility] Comment on above: Performed By: #### 4 6447, 92758 ####[facility] ABS IMM GRANS 0.0 10*3/uL Normal 0.0-0.2 [facility] Comment on above: Performed By: #### 4 6447, 72285 ####[facility] [place] [address] ABS NEUTROPHILS 4.9 10*3/uL Normal 1.6-7.6 [facility] Comment on above: Performed By: #### 4 7252, 82721 ####[facility] Basophils Auto #/vol (Bld) 0.1 % Normal 0.0-1.0 [facility] Comment on above: Performed By: #### 4 8286, 73464 ####[facility]3000 [facility] [place] [address], [facility] Eosinophils Auto #/vol (Bld) 0.1 10*3/uL Normal 0.0-0.5 [facility] Comment on above: Performed By: #### 4 5666, 18104 ####[facility] [facility].[address] Eosinophils/100 WBC Auto (Bld) 1.4 % Normal 0.0-6.0 [facility] Comment on above: Performed By: #### 3 5406, 10482 ####[facility] [facility].[address] Erythrocyte distribution width Auto Ratio (RBC) 14.6 % Normal 11.5-15.0 [facility] Comment on above: Performed By: #### 2 0181, 78722 ####[place] [address] [facility].[address] Hematocrit Auto Volume Fraction (Bld) 46.8 % High 36.0-45.0 [facility] Comment on above: Performed By: #### 7 6797, 45270 ####[facility] [facility].[address] Hemoglobin mass conc (Bld) 15.1 g/dL High 12.0-15.0 [facility] Comment on above: Performed By: #### 0 7596, 91216 ####[facility]3000 [facility].[address] IMMATURE GRANS 0.4 % Normal 0.0-1.[address] [facility]bern[facility] Comment on above: Performed By: #### 4 6868, 36291 ####[address] Lymphocytes Auto #/vol (Bld) 1.2 10*3/uL Normal 1.2-4.0 [facility] Comment on above: Performed By: #### 4 0352, 42993 ####[place] [address] Lymphocytes/100 WBC Auto (Bld) 16.6 % Low 20.0-45.0 [facility] Comment on above: Performed By: #### 4 3784, 86619 ####[address] MCH Auto Entitic mass (RBC) 29.0 pg Normal 27.0-33.0 [facility] Comment on above: Performed By: #### 6 0263, 45899 ####[address] MCHC Auto mass conc (RBC) 32.3 g/dL Normal 32.0-35.0 [facility] Comment on above: Performed By: #### 4 1250, 84185 ####[address] MCV Auto Entitic volume (RBC) 89.8 fL Normal 82.0-98.0 [facility] Comment on above: Performed By: #### 4 5306, 43251 ####[address] Monocytes Auto #/vol (Bld) 0.8 10*3/uL Normal 0.1-1.0 [facility] Comment on above: Performed By: #### 3 2466, 29370 ####[address] [place] [address], [facility] MONOS 11.9 % Normal 5.0-12.0 [facility] Comment on above: Performed By: #### 4 6447, 40641 ####[facility]3000 [facility] [place] [address], [facility] Neutrophils/100 WBC Auto (Bld) 69.6 % Normal 40.0-72.0 [facility] Comment on above: Performed By: #### 4 6447, 95416 ####[facility] [facility].[address] Nucleated RBC/100 WBC Ratio (Bld) 0 % Normal 0-0 [facility] Comment on above: Performed By: #### 4 6447, 78930 ####[address] PLAT CNT 200 10*3/uL Normal 150-400 The [facility] Comment on above: Performed By: #### 4 6447, 68043 ####[place] [address] [facility].[address] RBC Auto #/vol (Bld) 5.21 10*6/uL High 3.80-5.00 [facility] Comment on above: Performed By: #### 4 6447, 00340 ####[facility]3000 [facility].[address] WBC Auto #/vol (Bld) 7.04 10*3/uL Normal 4.00-10.60 [facility] Comment on above: Performed By: #### 4 6447, 81975 ####[place] [address] [facility].[address] COMP METABOLIC PANELon 10-30 Albumin mass conc 4.1 g/dL Normal 3.5-5.7 [facility] Comment on above: Performed By: #### 4 6047, 97234 ####[facility] [place] [address], [facility] ALKALINE PHOSPH 114 IU/L High 34-104 The [facility] Comment on above: Performed By: #### 4 5957, 72877 ####[facility] [place] [address], [place] ALT enzyme act/vol 16 U/L Normal 7-52 [facility] Comment on above: Performed By: #### 4 1868, 06997 ####[facility] [place] [address], [place] AST enzyme act/vol 18 U/L Normal 13-39 [facility] Comment on above: Performed By: #### 4 2100, 76531 ####[place] [address] [place] [address], [place] Bilirubin mass conc 0.4 mg/dL Normal 0.3-1.0 The [facility] Comment on above: Performed By: #### 4 7796, 03505 ####[facility] [place] [address], [place] Calcium mass conc 9.7 mg/dL Normal 8.6-10.3 [facility] Comment on above: Performed By: #### 4 9058, 41398 ####[facility] [place] [address], [place] Chloride molar conc 105 mmol/L Normal 98-107 [facility] Comment on above: Performed By: #### 4 5592, 00745 ####[facility] [place] [address], [place] CO2 molar conc 28 mmol/L Normal 21-31 [facility] Comment on above: Performed By: #### 4 9386, 12373 ####[facility] [place] [address], [facility] Creatinine mass conc 0.82 mg/dL Normal 0.60-1.20 [facility] Comment on above: Performed By: #### 4 1645, 22754 ####[facility] [place] [address], [facility] GFR/1.73 sq M predicted among blacks MDRD vol rate/area (S/P/Bld) mL/min/{1.73_m2} Normal >60 [facility] Comment on above: Performed By: #### 4 6047, 35717 ####[facility] [place] [address], [facility] GFR/1.73 sq M predicted among non-blacks MDRD vol rate/area (S/P/Bld) mL/min/{1.73_m2} Normal >60 [facility] Comment on above: Performed By: #### 4 6576, 42716 ####[facility]3000 [facility] [place] [address], [facility] Glucose mass conc 90 mg/dL Normal 70-100 [facility] Comment on above: Performed By: #### 4 8806, 86996 ####[facility]3000 [facility] [place] [place] [address], [facility] Potassium molar conc 4.1 mmol/L Normal 3.5-5.1 [facility] Comment on above: Performed By: #### 4 5247, 41221 ####[facility] [place] [address], [facility] Protein mass conc 6.9 g/dL Normal 6.0-8.3 [facility] Comment on above: Performed By: #### 4 5179, 34022 ####[facility] [place] [address], [facility] Sodium molar conc 138 mmol/L Normal 136-145 [facility] Comment on above: Performed By: #### 4 6447, 40683 ####[facility]3000 [facility].[address] Urea nitrogen mass conc 16 mg/dL Normal 7-25 [facility] Comment on above: Performed By: #### 4 6447, 31688 ####[facility] [facility].[address] DIRECT BILIon 10-30-2017 Bilirubin.direct mass conc 0.0 mg/dL Normal 0.0-0.2 [facility] Comment on above: Performed By: #### 4 5506, 03010, 51664, 20597, 77482, 12892 ####[facility] [facility].[address] EVEROLIMUS 64642cy 8 EVEROLIMUS 6.0 ng/mL Normal [facility] Comment on above: Result Comment: Ther [...] the transplantcenter.Test developed and characteristics determined by [employer]. See Compliance Statement B: [email or web address] by [employer],[address] [place] [address] ixb.[employer], Leonid Antonio MD - Lab. Director LIPID PROFILEon 10-30-2017 Cholesterol in HDL mass conc 50 mg/dL Normal 23-92 [facility] Comment on above: Result Comment: Slig ht variation in normal range could be due to gender and/or age.HDL CHOLESTEROL REFERENCE RANGE:20 years and older Cardiovascular Risk> or =60 mg/dL Fzydiuegf56 TO 59 mg/dL Low Risk<40 mg/dL High Risk Performed By: #### 4 5506, 99557, 05675, 89411, 16819, 84720 ####[facility] [place] [address], [place] Cholesterol in LDL mass conc 85 mg/dL Normal 0-130 [facility] Comment on above: Result Comment: LDL IS A CALCULATIONLDL IS ONLY VALID IF THE TRIG IS LESS THAN 400. Performed By: #### 4 5506, 34799, 92230, 62102, 85823, 38487 ####[facility] [place] [address], [facility] Cholesterol mass conc 152 mg/dL Normal 120-200 [facility] Comment on above: Result Comment: CHOL ESTEROL REFERENCE RANGE:20 YEARS AND OLDER CARDIOVASCULAR RISKLess than 200 mg/dl Low Xzkx894 to 239 mg/dl Borderline Trul756 mg/dl and greater High Risk Performed By: #### 4 5506, 92332, 53501, 04827, 47428, 46927 ####[facility] [place] [address], [place] Cholesterol.total/C holesterol in HDL mass ratio 3.0 {ratio} Normal .0-4.5 [facility] Comment on above: Performed By: #### 4 5506, 24062, 67734, 02684, 41524, 29239 ####[facility] [place] [address], [place] NON-HDL CHOLESTEROL 102 mg/dL Normal [facility] Comment on above: Performed By: #### 4 5506, 95423, 82493, 14283, 72459, 46560 ####[facility] Triglyceride mass conc 87 mg/dL Normal 40-149 [facility] Comment on above: Result Comment: TRIG LYCERIDE REFERENCE RANGE:20 YEARS AND OLDER CARDIOVASCULAR RISKLESS THAN 150 mg/dl LOW IILI189 TO 199 mg/dl BORDERLINE [id number] mg/dl AND GREATER HIGH RISK Performed By: #### 4 5506, 93063, 76049, 04601, 82111, 28304 ####[facility] VLDL CHOL 17 mg/dL Normal 0-40 [facility] Comment on above: Performed By: #### 4 5506, 91408, 65058, 10789, 39415, 63899 ####[facility] MAGNESIUM BLOODon 10-30-2017 Magnesium mass conc 1.9 mg/dL Normal 1.9-2.7 [facility] Comment on above: Performed By: #### 4 5506, 48203, 18424, 96799, 88309, 63657 ####[facility] PHOSPHORUS BLOODon 8 Phosphate mass conc 3.7 mg/dL Normal 2.5-5.0 [facility] Comment on above: Performed By: #### 4 5506, 78439, 71620, 74274, 75460, 99807 ####[facility] TACROLIMUSon 10-30-2017 Tacrolimus mass conc (Bld) 7.1 ng/mL Normal 5.0-20.0 [facility] Comment on above: Result Comment: The [employer] Tacrolimus assay is a delayed one-step immunoassayfor the quantitative determination of tacrolimus in human whole bloodusing the chemiluminescent microparticle immunoassay (CMIA) technologywith flexible assay protocols, referred to as Chemiflex. Performed By: #### 9 9914 ####[address] URIC ACID BLOODon 10-30-2017 Urate mass conc 4.6 mg/dL Normal 2.3-6.6 The [facility] Comment on above: Performed By: #### 4 2745, 52037 ####[place] [address] CBC W/DIFFon 10-23-2017 ABS BASOPHILS 0.0 10*3/uL Normal 0.0-0.2 The [facility] Comment on above: Performed By: #### 4 1532, 55868 ####[address] ABS IMM GRANS 0.1 10*3/uL Normal 0.0-0.2 [facility] Comment on above: Performed By: #### 4 9347, 08083 ####[address] ABS NEUTROPHILS 5.8 10*3/uL Normal 1.6-7.6 The [facility] Comment on above: Performed By: #### 4 0547, 03682 ####[address] Basophils Auto #/vol (Bld) 0.2 % Normal 0.0-1.0 [facility] Comment on above: Performed By: #### 4 7420, 50638 ####[address] Eosinophils Auto #/vol (Bld) 0.1 10*3/uL Normal 0.0-0.5 [facility] Comment on above: Performed By: #### 4 0715, 52752 ####[facility] [place] [address], [facility] Eosinophils/100 WBC Auto (Bld) 0.7 % Normal 0.0-6.0 [facility] Comment on above: Performed By: #### 4 6447, 84731 ####[facility] Erythrocyte distribution width Auto Ratio (RBC) 14.6 % Normal 11.5-15.0 [facility] Comment on above: Performed By: #### 4 6447, 73430 ####[facility]3000 [facility].[address] Hematocrit Auto Volume Fraction (Bld) 44.2 % Normal 36.0-45.0 [facility] Comment on above: Performed By: #### 4 6447, 01226 ####[place] [address] [facility].[address] Hemoglobin mass conc (Bld) 14.2 g/dL Normal 12.0-15.0 [facility] Comment on above: Performed By: #### 4 7247, 59761 ####[place] [address] [facility] [place] [place] [address], [facility] IMMATURE GRANS 1.4 % High 0.0-1.0 The [facility] Comment on above: Performed By: #### 4 6447, 26226 ####[facility] [place] [address], [facility] Lymphocytes Auto #/vol (Bld) 2.1 10*3/uL Normal 1.2-4.0 [facility] Comment on above: Performed By: #### 4 6447, 60818 ####[facility] [place] [address], [facility] Lymphocytes/100 WBC Auto (Bld) 22.5 % Normal 20.0-45.0 [facility] Comment on above: Performed By: #### 0 9347, 55245 ####[facility] [facility].[address] MCH Auto Entitic mass (RBC) 28.5 pg Normal 27.0-33.0 [facility] Comment on above: Performed By: #### 4 1193, 62403 ####[facility]3000 [facility].[address] MCHC Auto mass conc (RBC) 32.1 g/dL Normal 32.0-35.0 [facility] Comment on above: Performed By: #### 4 1015, 08555 ####[facility] [facility].[address] MCV Auto Entitic volume (RBC) 88.8 fL Normal 82.0-98.0 [facility] Comment on above: Performed By: #### 8 0614, 90976 ####[facility] [place] [address].[address] Monocytes Auto #/vol (Bld) 1.1 10*3/uL High 0.1-1.0 [facility] Comment on above: Performed By: #### 4 6535, 92696 ####[facility] [facility].[address] MONOS 12.0 % Normal 5.0-12.0 [facility] Comment on above: Performed By: #### 8 8658, 61522 ####[facility] [facility].[address] Neutrophils/100 WBC Auto (Bld) 63.2 % Normal 40.0-72.0 [facility] Comment on above: Performed By: #### 1 1040, 44217 ####[facility]3000 [facility].[address] Nucleated RBC/100 WBC Ratio (Bld) 0 % Normal 0-0 [facility] Comment on above: Performed By: #### 4 6447, 38169 ####[facility] [place] [address], [facility] PLAT CNT 241 10*3/uL Normal 150-400 The [facility] Comment on above: Performed By: #### 4 6447, 07912 ####[facility] [place] [address], [facility] RBC Auto #/vol (Bld) 4.98 10*6/uL Normal 3.80-5.00 [facility] Comment on above: Performed By: #### 4 6447, 73878 ####[facility] WBC Auto #/vol (Bld) 9.14 10*3/uL Normal 4.00-10.60 [facility] Comment on above: Performed By: #### 4 6447, 88586 ####[facility] COMP METABOLIC PANELon 10-23 Albumin mass conc 3.8 g/dL Normal 3.5-5.7 [facility] Comment on above: Performed By: #### 4 6447, 29469 ####[facility] ALKALINE PHOSPH 96 IU/L Normal 34-104 [facility] Comment on above: Performed By: #### 4 6447, 55817 ####[facility] ALT enzyme act/vol 15 U/L Normal 7-52 [facility] Comment on above: Performed By: #### 4 6447, 17672 ####[facility] AST enzyme act/vol 13 U/L Normal 13-39 The [facility] Comment on above: Performed By: #### 4 6447, 81411 ####[facility] [place] [address], [place] Bilirubin mass conc 0.4 mg/dL Normal 0.3-1.0 The [facility] Comment on above: Performed By: #### 4 5247, 62243 ####[facility] [place] [address], [place] Calcium mass conc 9.2 mg/dL Normal 8.6-10.3 [facility] Comment on above: Performed By: #### 4 0747, 40888 ####[facility] [place] [address], [place] Chloride molar conc 102 mmol/L Normal 98-107 The [facility] Comment on above: Performed By: #### 4 7947, 44228 ####[facility] [place] [address], [place] CO2 molar conc 29 mmol/L Normal 21-31 The [facility] Comment on above: Performed By: #### 4 5061, 77305 ####[facility] [place] [address], [place] Creatinine mass conc 0.80 mg/dL Normal 0.60-1.20 The [facility] Comment on above: Performed By: #### 4 8647, 41350 ####[facility] [place] [address], [place] GFR/1.73 sq M predicted among blacks MDRD vol rate/area (S/P/Bld) mL/min/{1.73_m2} Normal >60 The [facility] Comment on above: Performed By: #### 4 7847, 32578 ####[facility] [place] [address], [place] GFR/1.73 sq M predicted among non-blacks MDRD vol rate/area (S/P/Bld) mL/min/{1.73_m2} Normal >60 The [facility] Comment on above: Performed By: #### 4 9575, 40008 ####[facility].[place] [id number], [facility] Glucose mass conc 85 mg/dL Normal 70-100 [facility] Comment on above: Performed By: #### 4 0084, 16655 ####[facility] [facility] [place] [place] [address], [facility] Potassium molar conc 3.3 mmol/L Low 3.5-5.1 The [facility] Comment on above: Performed By: #### 4 3474, 77564 ####[place] [address] [facility] [place] [place] [address], [facility] Protein mass conc 6.5 g/dL Normal 6.0-8.3 [facility] Comment on above: Performed By: #### 4 9350, 15780 ####[place] [address] [facility] [place] [address], [facility] Sodium molar conc 139 mmol/L Normal 136-145 [facility] Comment on above: Performed By: #### 4 6963, 27989 ####[facility] [place] [address], [facility] Urea nitrogen mass conc 18 mg/dL Normal 7-25 The [facility] Comment on above: Performed By: #### 4 0081, 51480 ####[facility] [place] [address], [facility] DIRECT BILIon 10-23-2017 Bilirubin.direct mass conc 0.1 mg/dL Normal 0.0-0.2 The [facility] Comment on above: Performed By: #### 4 7158, 59462 ####[facility] [facility].[address] EVEROLIMUS 56104ia 8 EVEROLIMUS 4.0 ng/mL Normal The [facility] Comment on above: Result Comment: Ther [...] the transplantcenter.Test developed and characteristics determined by [employer]. See Compliance Statement B: [employer]/CSPerformed by [employer],[address] [place] [address] 84185 lsc.[employer], Leonid Antonio MD - Lab. Director LIPID PROFILEon 10-23-2017 Cholesterol in HDL mass conc 53 mg/dL Normal 23-92 The [facility] Comment on above: Result Comment: Slig ht variation in normal range could be due to gender and/or age.HDL CHOLESTEROL REFERENCE RANGE:20 years and older Cardiovascular Risk> or =60 mg/dL [id number] TO 59 mg/dL Low Risk<40 mg/dL High Risk Performed By: #### 4 6513, 49490 ####[facility] [facility].[address] Cholesterol in LDL mass conc 68 mg/dL Normal 0-130 The [facility] Comment on above: Result Comment: LDL IS A CALCULATIONLDL IS ONLY VALID IF THE TRIG IS LESS THAN 400. Performed By: #### 4 6859, 92664 ####[facility] [facility] [place] [place] [address], [facility] Cholesterol mass conc 135 mg/dL Normal 120-200 The [facility] Comment on above: Result Comment: CHOL ESTEROL REFERENCE RANGE:20 YEARS AND OLDER CARDIOVASCULAR RISKLess than 200 mg/dl Low Cpxh857 to 239 mg/dl Borderline Sycc431 mg/dl and greater High Risk Performed By: #### 4 6447, 17717 ####[facility] [facility] [place] [place] [address], [facility] Cholesterol.total/C holesterol in HDL mass ratio 2.5 {ratio} Normal .0-4.5 The [facility] Comment on above: Performed By: #### 4 3256, 17245 ####[facility] [facility].[address] NON-HDL CHOLESTEROL 82 mg/dL Normal The [facility] Comment on above: Performed By: #### 4 1631, 75110 ####[facility] [facility].[address] Triglyceride mass conc 72 mg/dL Normal 40-149 The [facility] Comment on above: Result Comment: TRIG LYCERIDE REFERENCE RANGE:20 YEARS AND OLDER CARDIOVASCULAR RISKLESS THAN 150 mg/dl LOW [id number] TO 199 mg/dl BORDERLINE RNBS591 mg/dl AND GREATER HIGH RISK Performed By: #### 4 5805, 76993 ####[facility] [facility] [place] [place] [address], [facility] VLDL CHOL 14 mg/dL Normal 0-40 [facility] Comment on above: Performed By: #### 4 9933, 28844 ####[facility] [facility] [place] [address], [facility] MAGNESIUM BLOODon 10-23-2017 Magnesium mass conc 1.8 mg/dL Low 1.9-2.7 The [facility] Comment on above: Performed By: #### 4 6447, 62883 ####[place] [address] PHOSPHORUS BLOODon 8 Phosphate mass conc 3.7 mg/dL Normal 2.5-5.0 The [facility] Comment on above: Performed By: #### 4 6447, 60270 ####[address] TACROLIMUSon 10-23-2017 Tacrolimus mass conc (Bld) 2.6 ng/mL Low 5.0-20.0 The [facility] Comment on above: Result Comment: The [employer] Tacrolimus assay is a delayed one-step immunoassayfor the quantitative determination of tacrolimus in human whole bloodusing the chemiluminescent microparticle immunoassay (CMIA) technologywith flexible assay protocols, referred to as Chemiflex. Performed By: #### 4 6447, 64616 ####[address] URIC ACID BLOODon 10-23-2017 Urate mass conc 4.3 mg/dL Normal 2.3-6.6 The [facility] Comment on above: Performed By: #### 4 6447, 15188 ####[address] CBC W/DIFFon 09-25-2017 ABS BASOPHILS 0.0 10*3/uL Normal 0.0-0.2 The [facility] Comment on above: Performed By: #### 4 1000, 61488, 96061, 60773, 52022, 17927 ####[address] ABS IMM GRANS 0.0 10*3/uL Normal 0.0-0.2 The [facility] Comment on above: Performed By: #### 4 1000, 21975, 35407, 77228, 58278, 53358 ####[facility] [facility] [place] [address], [facility] ABS NEUTROPHILS 4.4 10*3/uL Normal 1.6-7.6 The [facility] Comment on above: Performed By: #### 4 1000, 33825, 96347, 97763, 72949, 02373 ####[facility] [facility] [place] [address], [facility] Basophils Auto #/vol (Bld) 0.2 % Normal 0.0-1.0 The [facility] Comment on above: Performed By: #### 4 1000, 20185, 37964, 07671, 06322, 61751 ####[facility] [facility] [place] [place] [address], [facility] Eosinophils Auto #/vol (Bld) 0.1 10*3/uL Normal 0.0-0.5 [facility] Comment on above: Performed By: #### 4 1000, 68743, 04385, 84574, 27094, 19832 ####[facility]3000 [facility].[address] Eosinophils/100 WBC Auto (Bld) 2.2 % Normal 0.0-6.0 The [facility] Comment on above: Performed By: #### 4 1000, 41168, 46975, 09603, 82954, 09565 ####[place] [address] [facility].[address] Erythrocyte distribution width Auto Ratio (RBC) 14.0 % Normal 11.5-15.0 [facility] Comment on above: Performed By: #### 4 1000, 23824, 09796, 74392, 89380, 53038 ####[facility] Hematocrit Auto Volume Fraction (Bld) 44.8 % Normal 36.0-45.0 [facility] Comment on above: Performed By: #### 4 1000, 50737, 12003, 34086, 07902, 42812 ####[facility] [facility].[address] Hemoglobin mass conc (Bld) 14.5 g/dL Normal 12.0-15.0 [facility] Comment on above: Performed By: #### 4 1000, 00027, 13715, 87981, 63842, 68529 ####[facility] [facility].[address] IMMATURE GRANS 0.3 % Normal 0.0-1.0 The [facility] Comment on above: Performed By: #### 4 1000, 63006, 77902, 22041, 01648, 04594 ####[place] [address] Lymphocytes Auto #/vol (Bld) 1.1 10*3/uL Low 1.2-4.0 The [facility] Comment on above: Performed By: #### 4 1000, 27146, 14048, 58012, 81034, 74107 ####[facility] Lymphocytes/100 WBC Auto (Bld) 17.0 % Low 20.0-45.0 [facility] Comment on above: Performed By: #### 4 1000, 06248, 47875, 15547, 27510, 79473 ####[facility] [facility].[address] MCH Auto Entitic mass (RBC) 28.6 pg Normal 27.0-33.0 [facility] Comment on above: Performed By: #### 4 1000, 54163, 20162, 60577, 18190, 30945 ####[facility] MCHC Auto mass conc (RBC) 32.4 g/dL Normal 32.0-35.0 [facility] Comment on above: Performed By: #### 4 1000, 66321, 12875, 23112, 97966, 03369 ####[facility] MCV Auto Entitic volume (RBC) 88.4 fL Normal 82.0-98.0 [facility] Comment on above: Performed By: #### 4 1000, 71684, 12733, 84105, 95234, 84762 ####[facility] Monocytes Auto #/vol (Bld) 0.7 10*3/uL Normal 0.1-1.0 [facility] Comment on above: Performed By: #### 4 1000, 43756, 54738, 78754, 21532, 42994 ####[facility] MONOS 11.5 % Normal 5.0-12.0 [facility] Comment on above: Performed By: #### 4 1000, 59606, 95465, 72062, 31807, 80510 ####[facility] Neutrophils/100 WBC Auto (Bld) 68.8 % Normal 40.0-72.0 [facility] Comment on above: Performed By: #### 4 1000, 79446, 41041, 71123, 39537, 80695 ####[facility] Nucleated RBC/100 WBC Ratio (Bld) 0 % Normal 0-0 [facility] Comment on above: Performed By: #### 4 1000, 53135, 36876, 40242, 88405, 35086 ####[facility] [place] [address], [facility] PLAT CNT 212 10*3/uL Normal 150-400 The [facility] Comment on above: Performed By: #### 4 1000, 89039, 13342, 42808, 73718, 33639 ####[facility] RBC Auto #/vol (Bld) 5.07 10*6/uL High 3.80-5.00 [facility] Comment on above: Performed By: #### 4 1000, 02380, 22592, 44568, 43120, 09325 ####[facility] WBC Auto #/vol (Bld) 6.34 10*3/uL Normal 4.00-10.60 [facility] Comment on above: Performed By: #### 4 1000, 17873, 28667, 18713, 96394, 16424 ####[facility] [facility].[address] COMP METABOLIC PANELon 09-25 Albumin mass conc 4.0 g/dL Normal 3.5-5.7 [facility] Comment on above: Performed By: #### 4 4047, 62820 ####[facility] [facility].[address] ALKALINE PHOSPH 112 IU/L High 34-104 The [facility] Comment on above: Performed By: #### 4 5947, 18173 ####[facility] [facility].[address] ALT enzyme act/vol 11 U/L Normal 7-52 [facility] Comment on above: Performed By: #### 4 1701, 78303 ####[facility] AST enzyme act/vol 17 U/L Normal 13-39 [facility] Comment on above: Performed By: #### 4 9304, 12549 ####[facility] [place] [address], [place] Bilirubin mass conc 0.5 mg/dL Normal 0.3-1.0 The [facility] Comment on above: Performed By: #### 4 6447, 44490 ####[facility] [place] [address], [place] Calcium mass conc 9.6 mg/dL Normal 8.6-10.3 [facility] Comment on above: Performed By: #### 4 9920, 45055 ####[facility] [place] [address], [place] Chloride molar conc 104 mmol/L Normal 98-107 [facility] Comment on above: Performed By: #### 4 3047, 85720 ####[facility] [place] [address], [place] CO2 molar conc 28 mmol/L Normal 21-31 The [facility] Comment on above: Performed By: #### 4 6502, 61104 ####[facility] [place] [address], [place] Creatinine mass conc 0.83 mg/dL Normal 0.60-1.20 The [facility] Comment on above: Performed By: #### 4 9043, 42324 ####[facility] [place] [address], [place] GFR/1.73 sq M predicted among blacks MDRD vol rate/area (S/P/Bld) mL/min/{1.73_m2} Normal >60 [facility] Comment on above: Performed By: #### 4 7961, 06586 ####[facility] [place] [address], [place] GFR/1.73 sq M predicted among non-blacks MDRD vol rate/area (S/P/Bld) mL/min/{1.73_m2} Normal >60 [facility] Comment on above: Performed By: #### 4 6447, 35042 ####[facility] [place] [address], [facility] Glucose mass conc 91 mg/dL Normal 70-100 [facility] Comment on above: Performed By: #### 4 6447, 90937 ####[facility] [place] [address], [facility] Potassium molar conc 3.9 mmol/L Normal 3.5-5.1 [facility] Comment on above: Performed By: #### 4 6447, 19627 ####[place] [address] Protein mass conc 7.0 g/dL Normal 6.0-8.3 [facility] Comment on above: Performed By: #### 4 1747, 40807 ####[facility] Sodium molar conc 140 mmol/L Normal 136-145 [facility] Comment on above: Performed By: #### 4 0347, 72151 ####[place] [address] [place] [address], [facility] Urea nitrogen mass conc 15 mg/dL Normal 7-25 [facility] Comment on above: Performed By: #### 4 3547, 26857 ####[facility] DIRECT BILIon 09-25-2017 Bilirubin.direct mass conc 0.1 mg/dL Normal 0.0-0.2 [facility] Comment on above: Performed By: #### 4 6447, 27507 ####[facility] [place] [address], [facility] EVEROLIMUS [id number] 8 EVEROLIMUS 5.1 ng/mL Normal [facility] Comment on above: Result Comment: Ther [...] the transplantcenter.Test developed and characteristics determined by [employer]. See Compliance Statement B: [employer]/CSPerformed by [employer],[address] [place] [address] 78681 ixm.[employer], Leonid Antonio MD - Lab. Director LIPID PROFILEon 09-25-2017 Cholesterol in HDL mass conc 48 mg/dL Normal 23-92 [facility] Comment on above: Result Comment: Slig ht variation in normal range could be due to gender and/or age.HDL CHOLESTEROL REFERENCE RANGE:20 years and older Cardiovascular Risk> or =60 mg/dL Bfsizjoqr35 TO 59 mg/dL Low Risk<40 mg/dL High Risk Performed By: #### 5 4811, 48106 ####[facility] [place] [address], [facility] Cholesterol in LDL mass conc 69 mg/dL Normal 0-130 The [facility] Comment on above: Result Comment: LDL IS A CALCULATIONLDL IS ONLY VALID IF THE TRIG IS LESS THAN 400. Performed By: #### 1 4682, 39911 ####[facility] [facility].[address] Cholesterol mass conc 138 mg/dL Normal 120-200 [facility] Comment on above: Result Comment: CHOL ESTEROL REFERENCE RANGE:20 YEARS AND OLDER CARDIOVASCULAR RISKLess than 200 mg/dl Low Wshl052 to 239 mg/dl Borderline Fzte239 mg/dl and greater High Risk Performed By: #### 4 6113, 51019 ####[facility] [place] [address], [facility] Cholesterol.total/C holesterol in HDL mass ratio 2.9 {ratio} Normal .0-4.5 [facility] Comment on above: Performed By: #### 4 8269, 61778 ####[facility] [facility].[address] NON-HDL CHOLESTEROL 90 mg/dL Normal The [facility] Comment on above: Performed By: #### 4 9775, 07655 ####[facility] [facility].[address] Triglyceride mass conc 103 mg/dL Normal 40-149 [facility] Comment on above: Result Comment: TRIG LYCERIDE REFERENCE RANGE:20 YEARS AND OLDER CARDIOVASCULAR RISKLESS THAN 150 mg/dl LOW [id number] TO 199 mg/dl BORDERLINE DCPL708 mg/dl AND GREATER HIGH RISK Performed By: #### 4 0377, 25879 ####[facility] [facility] [place] [address], [facility] VLDL CHOL 21 mg/dL Normal 0-40 [facility] Comment on above: Performed By: #### 4 1752, 99827 ####[facility] [facility] [place] [address], [facility] MAGNESIUM BLOODon 09-25-2017 Magnesium mass conc 1.8 mg/dL Low 1.9-2.7 The [facility] Comment on above: Performed By: #### 4 5124, 09606 ####[facility] PHOSPHORUS BLOODon 8 Phosphate mass conc 3.4 mg/dL Normal 2.5-5.0 The [facility] Comment on above: Performed By: #### 4 6447, 08092 ####[address] TACROLIMUSon 09-25-2017 Tacrolimus mass conc (Bld) 3.6 ng/mL Low 5.0-20.0 The [facility] Comment on above: Result Comment: The [employer] Tacrolimus assay is a delayed one-step immunoassayfor the quantitative determination of tacrolimus in human whole bloodusing the chemiluminescent microparticle immunoassay (CMIA) technologywith flexible assay protocols, referred to as Chemiflex. Performed By: #### 4 6447, 46605 ####[address] URIC ACID BLOODon 09-25-2017 Urate mass conc 4.7 mg/dL Normal 2.3-6.6 The [facility] Comment on above: Performed By: #### 4 6447, 91124 ####[address] BK VIRUS QUANTITATION PCR BL OODon 08-26-2017 BKV QUANT PCR Not detected Normal The [facility] Comment on above: Result Comment: Meth od: BK virus was measured by quantitative polymerase chain reactionusing a TaqMan probe targeting the polyomavirus BK FIELD CONTROL INSPECTOR-1 gene.The lower limit of quantitation of the assay is 500 copies of BK genomeper milliliter of plasma or urine, and any detectable BK DNA below thatlevel is reported as: Detected, <500 copies/ml. Serial BK virusmeasurement can be used to monitor disease activity. (Reference:Kelsie vaughanl. J CLIN MICRO 2004; 42:4801-2453).This test was developed and its performance characteristics determinedby the [facility]. It has not been approvedby the [place] Food and Drug Administration. However, such approval is notrequired for clinical implementation, and test results have been shownto be clinically useful. This laboratory is CAP accredited and CLIAcertified to perform high complexity testing. Performed By: #### 4 1000, 58784, 91965, 01366, 49631, 14530 ####[facility] LOG 10 COPIES Not detected Normal The [facility] Comment on above: Performed By: #### 4 1000, 26382, 59812, 61797, 54415, 53400 ####[facility] CBC W/DIFFon 08-26-2017 ABS BASOPHILS 0.0 10*3/uL Normal 0.0-0.2 The [facility] Comment on above: Performed By: #### 4 1000, 27402, 50350, 27541, 75308, 25664 ####[facility] ABS IMM GRANS 0.0 10*3/uL Normal 0.0-0.2 [facility] Comment on above: Performed By: #### 4 1000, 20675, 26321, 13757, 45599, 83959 ####[facility] ABS NEUTROPHILS 4.5 10*3/uL Normal 1.6-7.6 The [facility] Comment on above: Performed By: #### 4 1000, 85629, 67327, 75614, 84868, 56386 ####[facility] [facility].[address] Basophils Auto #/vol (Bld) 0.2 % Normal 0.0-1.0 [facility] Comment on above: Performed By: #### 4 1000, 06842, 20500, 23507, 45891, 55062 ####[facility] [facility].[address] Eosinophils Auto #/vol (Bld) 0.2 10*3/uL Normal 0.0-0.5 [facility] Comment on above: Performed By: #### 4 1000, 86827, 81727, 60486, 52170, 43772 ####[facility] Eosinophils/100 WBC Auto (Bld) 2.4 % Normal 0.0-6.0 [facility] Comment on above: Performed By: #### 4 1000, 63215, 83962, 12485, 67328, 52328 ####[facility] Erythrocyte distribution width Auto Ratio (RBC) 14.0 % Normal 11.5-15.0 [facility] Comment on above: Performed By: #### 4 1000, 48546, 60965, 03008, 52954, 85444 ####[facility] Hematocrit Auto Volume Fraction (Bld) 44.9 % Normal 36.0-45.0 [facility] Comment on above: Performed By: #### 4 1000, 79253, 93314, 51762, 30424, 98085 ####[facility] Hemoglobin mass conc (Bld) 14.9 g/dL Normal 12.0-15.0 [facility] Comment on above: Performed By: #### 4 1000, 94361, 82366, 93448, 92206, 84295 ####[facility] IMMATURE GRANS 0.5 % Normal 0.0-1.[address] Comment on above: Performed By: #### 4 1000, 28340, 50297, 50919, 15150, 68675 ####[facility] Lymphocytes Auto #/vol (Bld) 1.0 10*3/uL Low 1.2-4.0 [facility] Comment on above: Performed By: #### 4 1000, 69860, 19506, 64687, 99091, 69306 ####[address] Lymphocytes/100 WBC Auto (Bld) 15.8 % Low 20.0-45.0 [facility] Comment on above: Performed By: #### 4 1000, 82175, 08751, 45695, 69696, 22811 ####[address] MCH Auto Entitic mass (RBC) 29.1 pg Normal 27.0-33.0 [facility] Comment on above: Performed By: #### 4 1000, 54595, 42002, 86000, 15865, 39554 ####[address] MCHC Auto mass conc (RBC) 33.2 g/dL Normal 32.0-35.0 [facility] Comment on above: Performed By: #### 4 1000, 03242, 17744, 21629, 10925, 63330 ####[address] MCV Auto Entitic volume (RBC) 87.7 fL Normal 82.0-98.0 [facility] Comment on above: Performed By: #### 4 1000, 90043, 05209, 07417, 63742, 72577 ####[address] Monocytes Auto #/vol (Bld) 0.7 10*3/uL Normal 0.1-1.0 [facility] Comment on above: Performed By: #### 4 1000, 35028, 29037, 02520, 72372, 91728 ####[facility] [place] [address], [facility] MONOS 10.6 % Normal 5.0-12.0 [facility] Comment on above: Performed By: #### 4 1000, 39537, 40776, 12866, 15509, 35480 ####[facility] [place] [address], [facility] Neutrophils/100 WBC Auto (Bld) 70.5 % Normal 40.0-72.0 [facility] Comment on above: Performed By: #### 4 1000, 78639, 83695, 18051, 53406, 70153 ####[facility] [place] [address], [facility] Nucleated RBC/100 WBC Ratio (Bld) 0 % Normal 0-0 [facility] Comment on above: Performed By: #### 4 1000, 11653, 69814, 32035, 57437, 05211 ####[facility] PLAT CNT 231 10*3/uL Normal 150-400 [facility] Comment on above: Performed By: #### 4 1000, 46365, 96039, 78617, 04685, 85337 ####[facility] RBC Auto #/vol (Bld) 5.12 10*6/uL High 3.80-5.00 [facility] Comment on above: Performed By: #### 4 1000, 70347, 99853, 98207, 13689, 82982 ####[facility] [place] [address], [facility] WBC Auto #/vol (Bld) 6.32 10*3/uL Normal 4.00-10.60 [facility] Comment on above: Performed By: #### 4 1000, 01649, 56695, 87184, 36820, 33837 ####[facility] COMP METABOLIC PANELon 08-26 Albumin mass conc 4.3 g/dL Normal 3.5-5.7 [facility] Comment on above: Performed By: #### 4 1000, 82745, 07193, 49069, 86664, 06788 ####[facility] ALKALINE PHOSPH 125 IU/L High 34-104 [facility] Comment on above: Performed By: #### 4 1000, 24948, 58099, 77367, 53113, 21833 ####[facility] ALT enzyme act/vol 17 U/L Normal 7-52 [facility] Comment on above: Performed By: #### 4 1000, 07416, 89268, 62299, 24238, 43007 ####[facility] AST enzyme act/vol 23 U/L Normal 13-39 [facility] Comment on above: Performed By: #### 4 1000, 71910, 09089, 45343, 52680, 23904 ####[facility] Bilirubin mass conc 0.4 mg/dL Normal 0.3-1.0 [facility] Comment on above: Performed By: #### 4 1000, 83363, 06866, 80887, 25255, 46103 ####[facility] Calcium mass conc 9.6 mg/dL Normal 8.6-10.3 [facility] Comment on above: Performed By: #### 4 1000, 46946, 89942, 37506, 94644, 05692 ####[facility] [place] [address], [place] Chloride molar conc 104 mmol/L Normal 98-107 [facility] Comment on above: Performed By: #### 4 1000, 62576, 71581, 45295, 17973, 65104 ####[facility] [place] [address], [place] CO2 molar conc 27 mmol/L Normal 21-31 [facility] Comment on above: Performed By: #### 4 1000, 22112, 76492, 79919, 78150, 95860 ####[facility] [place] [address], [place] Creatinine mass conc 0.77 mg/dL Normal 0.60-1.20 [facility] Comment on above: Performed By: #### 4 1000, 49651, 11281, 52844, 45592, 79876 ####[facility] [place] [address], [place] GFR/1.73 sq M predicted among blacks MDRD vol rate/area (S/P/Bld) mL/min/{1.73_m2} Normal >60 [facility] Comment on above: Performed By: #### 4 1000, 74988, 60314, 37594, 28065, 12000 ####[facility] [place] [address], [place] GFR/1.73 sq M predicted among non-blacks MDRD vol rate/area (S/P/Bld) mL/min/{1.73_m2} Normal >60 [facility] Comment on above: Performed By: #### 4 1000, 37482, 48551, 04591, 93898, 11478 ####[facility] [place] [address], [place] Glucose mass conc 95 mg/dL Normal 70-100 [facility] Comment on above: Performed By: #### 4 1000, 10777, 75277, 39051, 60372, 89386 ####[facility] [place] [address], [facility] Potassium molar conc 4.1 mmol/L Normal 3.5-5.1 [facility] Comment on above: Performed By: #### 4 1000, 67911, 23487, 72699, 24642, 90133 ####[facility] [place] [address], [facility] Protein mass conc 7.3 g/dL Normal 6.0-8.3 [facility] Comment on above: Performed By: #### 4 1000, 26941, 62162, 72985, 18860, 18236 ####[facility] [place] [address], [facility] Sodium molar conc 139 mmol/L Normal 136-145 [facility] Comment on above: Performed By: #### 4 1000, 94387, 64389, 04501, 55749, 49499 ####[facility] [place] [address], [facility] Urea nitrogen mass conc 12 mg/dL Normal 7-25 [facility] Comment on above: Performed By: #### 4 1000, 88931, 00768, 85897, 23234, 61304 ####[facility] [place] [address], [facility] DIRECT BILIon 08-26-2017 Bilirubin.direct mass conc 0.1 mg/dL Normal 0.0-0.2 [facility] Comment on above: Performed By: #### 4 1000, 27682, 55646, 80972, 31909, 02212 ####[facility] [place] [address], [place] EVEROLIMUS 16767ic 05-29-201 8 EVEROLIMUS 5.6 ng/mL Normal [facility] Comment on above: Result Comment: Ther [...] the transplantcenter.Test developed and characteristics determined by [employer]. See Compliance Statement B: [employer]/CSPerformed by [employer],[address] [place] [id number] skd.[employer], Leonid Antonio MD - Lab. Director HEMOGLOBIN A1Con 08-26-2017 Glucose mass conc 114 mg/dL Normal 70-126 [facility] Comment on above: Performed By: #### 4 1000, 95405, 97943, 15491, 64399, 75267 ####[facility] [place] [address], [facility] Hemoglobin A1c/Hemoglobin.tota l mass fraction (Bld) 5.6 % Normal 4.0-6.0 [facility] Comment on above: Performed By: #### 4 1000, 76415, 03363, 20100, 82504, 36510 ####[facility] [place] [address], [facility] LIPID PROFILEon 08-26-2017 Cholesterol in HDL mass conc 49 mg/dL Normal 23-92 [facility] Comment on above: Result Comment: Slig ht variation in normal range could be due to gender and/or age.HDL CHOLESTEROL REFERENCE RANGE:20 years and older Cardiovascular Risk> or =60 mg/dL Umeefemfz21 TO 59 mg/dL Low Risk<40 mg/dL High Risk Performed By: #### 4 1000, 58994, 48170, 61447, 14956, 98283 ####[facility] [place] [address], [facility] Cholesterol in LDL mass conc 76 mg/dL Normal 0-130 [facility] Comment on above: Result Comment: LDL IS A CALCULATIONLDL IS ONLY VALID IF THE TRIG IS LESS THAN 400. Performed By: #### 4 1000, 87525, 43318, 96326, 58236, 55219 ####[facility] [place] [address], [facility] Cholesterol mass conc 152 mg/dL Normal 120-200 [facility] Comment on above: Result Comment: CHOL ESTEROL REFERENCE RANGE:20 YEARS AND OLDER CARDIOVASCULAR RISKLess than 200 mg/dl Low Fdpb600 to 239 mg/dl Borderline Ddkq389 mg/dl and greater High Risk Performed By: #### 4 1000, 82269, 39706, 59800, 81034, 55421 ####[facility] [place] [address], [facility] Cholesterol.total/C holesterol in HDL mass ratio 3.1 {ratio} Normal .0-4.5 [facility] Comment on above: Performed By: #### 4 1000, 09473, 24734, 37213, 65261, 04772 ####[facility] [place] [address], [facility] NON-HDL CHOLESTEROL 103 mg/dL Normal [facility] Comment on above: Performed By: #### 4 1000, 89971, 44197, 71982, 39284, 36094 ####[facility] Triglyceride mass conc 133 mg/dL Normal 40-149 [facility] Comment on above: Result Comment: TRIG LYCERIDE REFERENCE RANGE:20 YEARS AND OLDER CARDIOVASCULAR RISKLESS THAN 150 mg/dl LOW [id number] TO 199 mg/dl BORDERLINE [id number] mg/dl AND GREATER HIGH RISK Performed By: #### 4 1000, 44135, 95469, 88987, 20266, 71514 ####[facility] [facility].[address] VLDL CHOL 27 mg/dL Normal 0-40 [facility] Comment on above: Performed By: #### 4 1000, 80766, 70043, 28932, 68644, 54574 ####[facility] [facility].[address] MAGNESIUM BLOODon 08-26-2017 Magnesium mass conc 1.9 mg/dL Normal 1.9-2.7 [facility] Comment on above: Performed By: #### 4 1000, 45069, 56275, 20782, 33135, 49434 ####[facility] [facility].[address] PHOSPHORUS BLOODon 8 Phosphate mass conc 3.4 mg/dL Normal 2.5-5.0 [facility] Comment on above: Performed By: #### 4 1000, 78427, 56354, 86559, 94571, 61880 ####[facility] [facility].[address] TACROLIMUSon 08-26-2017 Tacrolimus mass conc (Bld) 4.3 ng/mL Low 5.0-20.0 [facility] Comment on above: Result Comment: The [employer] Tacrolimus assay is a delayed one-step immunoassayfor the quantitative determination of tacrolimus in human whole bloodusing the chemiluminescent microparticle immunoassay (CMIA) technologywith flexible assay protocols, referred to as Chemiflex. Performed By: #### 4 1000, 55790, 12091, 27974, 43439, 32822 ####[facility] [facility].[address] URIC ACID BLOODon 08-26-2017 Urate mass conc 4.6 mg/dL Normal 2.3-6.6 [facility] Comment on above: Performed By: #### 4 1000, 31471, 78573, 64651, 89417, 00179 ####[facility] [facility].[address] CBC W/DIFFon 07-23-2017 ABS BASOPHILS 0.0 10*3/uL Normal 0.0-0.2 [facility] Comment on above: Performed By: #### 4 1000, 08747, 00899, 84613, 89499, 84916 ####[facility] ABS IMM GRANS 0.0 10*3/uL Normal 0.0-0.2 [facility] Comment on above: Performed By: #### 4 1000, 82513, 71493, 14834, 74697, 88819 ####[facility] [facility].[address] ABS NEUTROPHILS 4.4 10*3/uL Normal 1.6-7.6 [facility] Comment on above: Performed By: #### 4 1000, 79369, 15812, 81571, 90587, 08218 ####[facility] [facility].[address] Basophils Auto #/vol (Bld) 0.2 % Normal 0.0-1.0 [facility] Comment on above: Performed By: #### 4 1000, 84111, 03776, 13571, 68800, 88660 ####[facility] [facility].[address] Eosinophils Auto #/vol (Bld) 0.1 10*3/uL Normal 0.0-0.5 [facility] Comment on above: Performed By: #### 4 1000, 50711, 03707, 92610, 81644, 47330 ####[facility]3000 [facility].[address] Eosinophils/100 WBC Auto (Bld) 2.1 % Normal 0.0-6.0 [facility] Comment on above: Performed By: #### 4 1000, 14487, 79307, 73472, 38480, 91080 ####[facility] Erythrocyte distribution width Auto Ratio (RBC) 13.7 % Normal 11.5-15.0 [facility] Comment on above: Performed By: #### 4 1000, 69393, 63140, 11800, 67196, 50479 ####[facility]3000 [facility].[address] Hematocrit Auto Volume Fraction (Bld) 44.4 % Normal 36.0-45.0 [facility] Comment on above: Performed By: #### 4 1000, 29986, 75408, 94130, 57198, 22042 ####[facility]3000 [facility].[address] Hemoglobin mass conc (Bld) 14.7 g/dL Normal 12.0-15.0 [facility] Comment on above: Performed By: #### 4 1000, 93536, 40991, 17474, 85520, 76343 ####[facility]3000 [facility].[address] IMMATURE GRANS 0.5 % Normal 0.0-1.0 [facility] Comment on above: Performed By: #### 4 1000, 45536, 99578, 51161, 77418, 29685 ####[facility] Lymphocytes Auto #/vol (Bld) 1.0 10*3/uL Low 1.2-4.0 [facility] Comment on above: Performed By: #### 4 1000, 79590, 66818, 42533, 18977, 79735 ####[facility] Lymphocytes/100 WBC Auto (Bld) 15.5 % Low 20.0-45.0 [facility] Comment on above: Performed By: #### 4 1000, 81161, 35999, 72836, 44236, 45729 ####[facility]3000 [facility].[address] MCH Auto Entitic mass (RBC) 28.9 pg Normal 27.0-33.0 [facility] Comment on above: Performed By: #### 4 1000, 32376, 43045, 44277, 85276, 40158 ####[facility] MCHC Auto mass conc (RBC) 33.1 g/dL Normal 32.0-35.0 [facility] Comment on above: Performed By: #### 4 1000, 19792, 54937, 97779, 38172, 11344 ####[facility] [facility].[address] MCV Auto Entitic volume (RBC) 87.4 fL Normal 82.0-98.0 [facility] Comment on above: Performed By: #### 4 1000, 67025, 22497, 51006, 27314, 93751 ####[facility] [facility].[address] Monocytes Auto #/vol (Bld) 0.8 10*3/uL Normal 0.1-1.0 [facility] Comment on above: Performed By: #### 4 1000, 09742, 50527, 92314, 68074, 92818 ####[facility] [facility] [place] [place] [address], [facility] MONOS 12.3 % High 5.0-12.0 [facility] Comment on above: Performed By: #### 4 1000, 70926, 10503, 92557, 90188, 61718 ####[facility] [facility] [place] [place] [address], [facility] Neutrophils/100 WBC Auto (Bld) 69.4 % Normal 40.0-72.0 [facility] Comment on above: Performed By: #### 4 1000, 94580, 89221, 41796, 57859, 30935 ####[facility] [facility] [place] [place] [address], [facility] Nucleated RBC/100 WBC Ratio (Bld) 0 % Normal 0-0 [facility] Comment on above: Performed By: #### 4 1000, 34975, 68065, 81717, 32482, 46475 ####[facility] [facility] [place] [place] [address], [facility] PLAT CNT 218 10*3/uL Normal 150-400 The [facility] Comment on above: Performed By: #### 4 1000, 04688, 32774, 24381, 30919, 89042 ####[facility] [facility] [place] [place] [address], [facility] RBC Auto #/vol (Bld) 5.08 10*6/uL High 3.80-5.00 [facility] Comment on above: Performed By: #### 4 1000, 76058, 01745, 63299, 16666, 20331 ####[facility] [facility] [place] [place] [address], [facility] WBC Auto #/vol (Bld) 6.3 10*3/uL Normal 4.0-10.6 [facility] Comment on above: Performed By: #### 4 1000, 99749, 94809, 05215, 29931, 05621 ####[facility] COMP METABOLIC PANELon 07-23 Albumin mass conc 4.2 g/dL Normal 3.5-5.7 [facility] Comment on above: Performed By: #### 4 1000, 12131, 41560, 75573, 44077, 05295 ####[facility] ALKALINE PHOSPH 113 IU/L High 34-[address] [facility] Comment on above: Performed By: #### 4 1000, 31341, 32409, 22927, 38048, 93129 ####[facility] ALT enzyme act/vol 23 U/L Normal 7-52 [facility] Comment on above: Performed By: #### 4 1000, 01983, 86972, 04546, 57563, 55989 ####[facility] AST enzyme act/vol 25 U/L Normal 13-39 [facility] Comment on above: Performed By: #### 4 1000, 05830, 06536, 88367, 27514, 18926 ####[facility] [place] [address], [facility] Bilirubin mass conc 0.6 mg/dL Normal 0.3-1.0 The [facility] Comment on above: Performed By: #### 4 1000, 54719, 35936, 23803, 78817, 37895 ####[facility] [place] [address], [facility] Calcium mass conc 9.6 mg/dL Normal 8.6-10.3 [facility] Comment on above: Performed By: #### 4 1000, 17511, 22582, 64978, 61541, 52612 ####[facility] [place] [address], [place] Chloride molar conc 104 mmol/L Normal 98-107 [facility] Comment on above: Performed By: #### 4 1000, 08600, 30427, 16403, 72327, 86365 ####[facility] [place] [address], [place] CO2 molar conc 25 mmol/L Normal 21-31 [facility] Comment on above: Performed By: #### 4 1000, 23846, 76898, 17654, 46611, 80178 ####[facility] [place] [address], [place] Creatinine mass conc 0.80 mg/dL Normal 0.60-1.20 [facility] Comment on above: Performed By: #### 4 1000, 66623, 21045, 80360, 36417, 64233 ####[facility] [place] [address], [place] GFR/1.73 sq M predicted among blacks MDRD vol rate/area (S/P/Bld) mL/min/{1.73_m2} Normal >60 [facility] Comment on above: Performed By: #### 4 1000, 55084, 50697, 50919, 18136, 62155 ####[facility] [place] [address], [place] GFR/1.73 sq M predicted among non-blacks MDRD vol rate/area (S/P/Bld) mL/min/{1.73_m2} Normal >60 [facility] Comment on above: Performed By: #### 4 1000, 54008, 79387, 37850, 74798, 01133 ####[facility] [place] [address], [place] Glucose mass conc 91 mg/dL Normal 70-100 [facility] Comment on above: Performed By: #### 4 1000, 34214, 02497, 07075, 45997, 24955 ####[facility] Potassium molar conc 4.0 mmol/L Normal 3.5-5.1 [facility] Comment on above: Performed By: #### 4 1000, 02246, 47659, 14449, 98655, 36733 ####[facility] Protein mass conc 6.8 g/dL Normal 6.0-8.3 [facility] Comment on above: Performed By: #### 4 1000, 69255, 76752, 56051, 62038, 22869 ####[facility] Sodium molar conc 140 mmol/L Normal 136-145 [facility] Comment on above: Performed By: #### 4 1000, 20512, 98485, 03165, 81873, 26896 ####[facility] Urea nitrogen mass conc 16 mg/dL Normal 7-25 [facility] Comment on above: Performed By: #### 4 1000, 34882, 46245, 16644, 59950, 29417 ####[facility] DIRECT BILIon 07-23-2017 Bilirubin.direct mass conc 0.2 mg/dL Normal 0.0-0.2 [facility] Comment on above: Performed By: #### 4 1000, 61595, 46750, 55034, 90295, 70168 ####[facility] [place] [address], [facility] EVEROLIMUS [id number] EVEROLIMUS 5.3 ng/mL Normal [facility] Comment on above: Result Comment: Ther [...] the transplantcenter.Test developed and characteristics determined by [employer]. See Compliance Statement B: [employer]/CSPerformed by [employer],[address] [place] [address] rfr.[employer], Leonid Antonio MD - Lab. Director LIPID PROFILEon 07-23-2017 Cholesterol in HDL mass conc 45 mg/dL Normal 23-92 [facility] Comment on above: Result Comment: Slig ht variation in normal range could be due to gender and/or age.HDL CHOLESTEROL REFERENCE RANGE:20 years and older Cardiovascular Risk> or =60 mg/dL Fgniyqyor82 TO 59 mg/dL Low Risk<40 mg/dL High Risk Performed By: #### 4 1000, 34049, 87343, 65410, 12101, 22669 ####[facility] [place] [address], [facility] Cholesterol in LDL mass conc 79 mg/dL Normal 0-130 [facility] Comment on above: Result Comment: LDL IS A CALCULATIONLDL IS ONLY VALID IF THE TRIG IS LESS THAN 400. Performed By: #### 4 1000, 39056, 24651, 74639, 48595, 30320 ####[facility] [place] [address], [facility] Cholesterol mass conc 141 mg/dL Normal 120-200 [facility] Comment on above: Result Comment: CHOL ESTEROL REFERENCE RANGE:20 YEARS AND OLDER CARDIOVASCULAR RISKLess than 200 mg/dl Low Zcem527 to 239 mg/dl Borderline Xjrf709 mg/dl and greater High Risk Performed By: #### 4 1000, 72608, 54781, 21949, 05363, 78741 ####[facility] [place] [address], [facility] Cholesterol.total/C holesterol in HDL mass ratio 3.1 {ratio} Normal .0-4.5 [facility] Comment on above: Performed By: #### 4 1000, 81287, 51193, 51648, 33787, 94500 ####[facility] NON-HDL CHOLESTEROL 96 mg/dL Normal [facility] Comment on above: Performed By: #### 4 1000, 67069, 59903, 10244, 29278, 66025 ####[facility] [facility] [place] [address], [facility] Triglyceride mass conc 83 mg/dL Normal 40-149 [facility] Comment on above: Result Comment: TRIG LYCERIDE REFERENCE RANGE:20 YEARS AND OLDER CARDIOVASCULAR RISKLESS THAN 150 mg/dl LOW [id number] TO 199 mg/dl BORDERLINE [id number] mg/dl AND GREATER HIGH RISK Performed By: #### 4 1000, 33372, 26038, 13670, 26304, 48266 ####[facility] [place] [address], [facility] VLDL CHOL 17 mg/dL Normal 0-40 [facility] Comment on above: Performed By: #### 4 1000, 92608, 08679, 19857, 39300, 20133 ####[facility] MAGNESIUM BLOODon 07-23-2017 Magnesium mass conc 2.0 mg/dL Normal 1.9-2.7 [facility] Comment on above: Performed By: #### 4 1000, 80698, 30731, 03571, 71136, 58573 ####[facility] [facility].[address] PHOSPHORUS BLOODon 8 Phosphate mass conc 4.0 mg/dL Normal 2.5-5.0 [facility] Comment on above: Performed By: #### 4 1000, 40895, 59532, 29125, 64116, 78361 ####[facility] [facility].[address] TACROLIMUSon 07-23-2017 Tacrolimus mass conc (Bld) 4.6 ng/mL Low 5.0-20.0 [facility] Comment on above: Result Comment: The [employer] Tacrolimus assay is a delayed one-step immunoassayfor the quantitative determination of tacrolimus in human whole bloodusing the chemiluminescent microparticle immunoassay (CMIA) technologywith flexible assay protocols, referred to as Chemiflex. Performed By: #### 4 1000, 06213, 75613, 63464, 28802, 19960 ####[facility] [facility].[address] URIC ACID BLOODon 07-23-2017 Urate mass conc 4.7 mg/dL Normal 2.3-6.6 [facility] Comment on above: Performed By: #### 4 1000, 97343, 21554, 82911, 06086, 98250 ####[facility] [facility].[address] CBC W/DIFFon 06-20-2017 ABS BASOPHILS 0.0 10*3/uL Normal 0.0-0.2 [facility] Comment on above: Performed By: #### 4 1000, 04661, 58158, 89574, 10883, 22919 ####[facility] [facility].[address] ABS IMM GRANS 0.0 10*3/uL Normal 0.0-0.2 [facility] Comment on above: Performed By: #### 4 1000, 44540, 83144, 75545, 24429, 65956 ####[facility] [facility] [place] [place] [address], [facility] ABS NEUTROPHILS 4.2 10*3/uL Normal 1.6-7.6 The [facility] Comment on above: Performed By: #### 4 1000, 13029, 85201, 79650, 51259, 43373 ####[facility] [facility].[address] Basophils Auto #/vol (Bld) 0.2 % Normal 0.0-1.0 [facility] Comment on above: Performed By: #### 4 1000, 52262, 81439, 61940, 89763, 40915 ####[facility] [facility].[address] Eosinophils Auto #/vol (Bld) 0.1 10*3/uL Normal 0.0-0.5 [facility] Comment on above: Performed By: #### 4 1000, 97035, 03022, 00820, 85923, 28498 ####[facility] [facility].[address] Eosinophils/100 WBC Auto (Bld) 1.5 % Normal 0.0-6.0 [facility] Comment on above: Performed By: #### 4 1000, 84422, 75787, 98984, 84111, 40530 ####[facility] [facility].[address] Erythrocyte distribution width Auto Ratio (RBC) 13.4 % Normal 11.5-15.0 [facility] Comment on above: Performed By: #### 4 1000, 94353, 15064, 83103, 78036, 03560 ####[facility] [facility].[address] Hematocrit Auto Volume Fraction (Bld) 44.9 % Normal 36.0-45.0 [facility] Comment on above: Performed By: #### 4 1000, 60487, 70794, 83603, 63307, 67278 ####[facility] [facility].[address] Hemoglobin mass conc (Bld) 14.9 g/dL Normal 12.0-15.0 [facility] Comment on above: Performed By: #### 4 1000, 99005, 36833, 88977, 75864, 31524 ####[facility] [facility].[address] IMMATURE GRANS 0.2 % Normal 0.0-1.[address] [facility] Comment on above: Performed By: #### 4 1000, 11324, 15381, 30854, 02003, 98250 ####[facility] [facility].[address] Lymphocytes Auto #/vol (Bld) 1.1 10*3/uL Low 1.2-4.0 [facility] Comment on above: Performed By: #### 4 1000, 15521, 95778, 24147, 62330, 18607 ####[facility] [facility].[address] Lymphocytes/100 WBC Auto (Bld) 17.4 % Low 20.0-45.0 [facility] Comment on above: Performed By: #### 4 1000, 32738, 22423, 29002, 12687, 07748 ####[facility] [facility].[address] MCH Auto Entitic mass (RBC) 29.2 pg Normal 27.0-33.0 [facility] Comment on above: Performed By: #### 4 1000, 79220, 69575, 31655, 12085, 69410 ####[facility] MCHC Auto mass conc (RBC) 33.2 g/dL Normal 32.0-35.0 [facility] Comment on above: Performed By: #### 4 1000, 37217, 91737, 89627, 87829, 62678 ####[facility] MCV Auto Entitic volume (RBC) 87.9 fL Normal 82.0-98.0 [facility] Comment on above: Performed By: #### 4 1000, 91233, 93379, 52185, 22350, 24394 ####[facility] Monocytes Auto #/vol (Bld) 0.7 10*3/uL Normal 0.1-1.0 [facility] Comment on above: Performed By: #### 4 1000, 88228, 35525, 80438, 42043, 99103 ####[facility] MONOS 11.3 % Normal 5.0-12.0 [facility] Comment on above: Performed By: #### 4 1000, 68413, 46492, 49549, 56553, 56569 ####[facility] Neutrophils/100 WBC Auto (Bld) 69.4 % Normal 40.0-72.0 [facility] Comment on above: Performed By: #### 4 1000, 14753, 46024, 44646, 55913, 73706 ####[facility] Nucleated RBC/100 WBC Ratio (Bld) 0 % Normal 0-0 [facility] Comment on above: Performed By: #### 4 1000, 65039, 56770, 80132, 75510, 73955 ####[facility] PLAT CNT 198 10*3/uL Normal 150-400 The [facility] Comment on above: Performed By: #### 4 1000, 48615, 71288, 17863, 05929, 37591 ####[facility] RBC Auto #/vol (Bld) 5.11 10*6/uL High 3.80-5.00 [facility] Comment on above: Performed By: #### 4 1000, 89078, 94453, 75145, 26011, 38246 ####[facility] WBC Auto #/vol (Bld) 6.0 10*3/uL Normal 4.0-10.6 [facility] Comment on above: Performed By: #### 4 1000, 67369, 20080, 64660, 55107, 76548 ####[facility] COMP METABOLIC PANELon 06-20 Albumin mass conc 4.4 g/dL Normal 3.5-5.7 The [facility] Comment on above: Performed By: #### 4 1000, 52691, 03433, 79104, 98986, 41152 ####[facility] ALKALINE PHOSPH 133 IU/L High 34-104 The [facility] Comment on above: Performed By: #### 4 1000, 45198, 74313, 24924, 76750, 28784 ####[facility] ALT enzyme act/vol 16 U/L Normal 7-52 The [facility] Comment on above: Performed By: #### 4 1000, 16681, 35330, 50933, 09905, 08406 ####[facility] [place] [address], [facility] AST enzyme act/vol 21 U/L Normal 13-39 [facility] Comment on above: Performed By: #### 4 1000, 06728, 79208, 58667, 99152, 22237 ####[facility] [place] [address], [facility] Bilirubin mass conc 0.8 mg/dL Normal 0.3-1.0 The [facility] Comment on above: Performed By: #### 4 1000, 58738, 92973, 39054, 12629, 28966 ####[facility] [place] [address], [facility] Calcium mass conc 10.0 mg/dL Normal 8.6-10.3 [facility] Comment on above: Performed By: #### 4 1000, 30788, 17168, 55143, 71810, 28709 ####[facility] [place] [address], [place] Chloride molar conc 106 mmol/L Normal 98-107 [facility] Comment on above: Performed By: #### 4 1000, 93082, 43312, 48211, 53467, 86441 ####[facility] [place] [address], [place] CO2 molar conc 27 mmol/L Normal 21-31 The [facility] Comment on above: Performed By: #### 4 1000, 01145, 44423, 72911, 11135, 55686 ####[facility] [place] [address], [place] Creatinine mass conc 0.74 mg/dL Normal 0.60-1.20 The [facility] Comment on above: Performed By: #### 4 1000, 61095, 59168, 35306, 29695, 58579 ####[facility] [place] [address], [facility] GFR/1.73 sq M predicted among blacks MDRD vol rate/area (S/P/Bld) mL/min/{1.73_m2} Normal >60 The [facility] Comment on above: Performed By: #### 4 1000, 32792, 73915, 88693, 38414, 34393 ####[facility] [place] [address], [facility] GFR/1.73 sq M predicted among non-blacks MDRD vol rate/area (S/P/Bld) mL/min/{1.73_m2} Normal >60 The [facility] Comment on above: Performed By: #### 4 1000, 07839, 23821, 49105, 02031, 26521 ####[facility] [place] [address], [facility] Glucose mass conc 95 mg/dL Normal 70-100 [facility] Comment on above: Performed By: #### 4 1000, 43331, 95248, 99456, 36915, 85998 ####[facility] [place] [address], [facility] Potassium molar conc 3.8 mmol/L Normal 3.5-5.1 [facility] Comment on above: Performed By: #### 4 1000, 03729, 31830, 12606, 56047, 20610 ####[facility] [place] [address], [facility] Protein mass conc 7.3 g/dL Normal 6.0-8.3 [facility] Comment on above: Performed By: #### 4 1000, 88566, 80133, 50318, 38029, 91089 ####[facility] Sodium molar conc 137 mmol/L Normal 136-145 [facility] Comment on above: Performed By: #### 4 1000, 64931, 67688, 83003, 74094, 52600 ####[facility] Urea nitrogen mass conc 16 mg/dL Normal 7-25 [facility] Comment on above: Performed By: #### 4 1000, 15541, 59995, 35574, 20153, 95513 ####[facility] DIRECT BILIon 06-20-2017 Bilirubin.direct mass conc 0.1 mg/dL Normal 0.0-0.2 [facility] Comment on above: Performed By: #### 4 1000, 52302, 69820, 79337, 82516, 81098 ####[facility] EVEROLIMUS [address]2029nd 8 EVEROLIMUS 6.7 ng/mL Normal The [facility] Comment on above: Result Comment: Ther [...] the transplantcenter.Test developed and characteristics determined by [employer]. See Compliance Statement B: [employer]/CSPerformed by [employer],[address], [facility], [place] [address] pzh.[employer], Leonid Antonio MD - Lab. Director LIPID PROFILEon 06-20-2017 Cholesterol in HDL mass conc 45 mg/dL Normal 23-92 The [facility] Comment on above: Result Comment: Slig ht variation in normal range could be due to gender and/or age.HDL CHOLESTEROL REFERENCE RANGE:20 years and older Cardiovascular Risk> or =60 mg/dL Purebpwrg70 TO 59 mg/dL Low Risk<40 mg/dL High Risk Performed By: #### 4 1000, 21458, 60872, 84837, 88008, 37206 ####[facility] [facility] [place] [place] [address], [facility] Cholesterol in LDL mass conc 58 mg/dL Normal 0-130 [facility] Comment on above: Result Comment: LDL IS A CALCULATIONLDL IS ONLY VALID IF THE TRIG IS LESS THAN 400. Performed By: #### 4 1000, 62628, 68465, 24328, 88091, 14424 ####[facility] [place] [address], [facility] Cholesterol mass conc 126 mg/dL Normal 120-200 [facility] Comment on above: Result Comment: CHOL ESTEROL REFERENCE RANGE:20 YEARS AND OLDER CARDIOVASCULAR RISKLess than 200 mg/dl Low Okav949 to 239 mg/dl Borderline Bpwb286 mg/dl and greater High Risk Performed By: #### 4 1000, 61018, 90496, 94397, 23016, 67890 ####[facility] [place] [address], [facility] Cholesterol.total/C holesterol in HDL mass ratio 2.8 {ratio} Normal .0-4.5 [facility] Comment on above: Performed By: #### 4 1000, 58368, 83410, 39562, 82160, 13950 ####[facility] NON-HDL CHOLESTEROL 81 mg/dL Normal The [facility] Comment on above: Performed By: #### 4 1000, 75836, 97232, 83247, 66716, 80992 ####[facility] Triglyceride mass conc 113 mg/dL Normal 40-149 [facility] Comment on above: Result Comment: TRIG LYCERIDE REFERENCE RANGE:20 YEARS AND OLDER CARDIOVASCULAR RISKLESS THAN 150 mg/dl LOW [id number] TO 199 mg/dl BORDERLINE [id number] mg/dl AND GREATER HIGH RISK Performed By: #### 4 1000, 49820, 37934, 21266, 61124, 75493 ####[facility] VLDL CHOL 23 mg/dL Normal 0-40 [facility] Comment on above: Performed By: #### 4 1000, 69320, 71510, 57713, 82191, 06372 ####[facility] MAGNESIUM BLOODon 06-20-2017 Magnesium mass conc 1.9 mg/dL Normal 1.9-2.7 The [facility] Comment on above: Performed By: #### 4 1000, 17243, 25439, 92937, 00006, 93246 ####[facility] [place] [address], [facility] PHOSPHORUS BLOODon 8 Phosphate mass conc 3.1 mg/dL Normal 2.5-5.0 The [facility] Comment on above: Performed By: #### 4 1000, 80702, 60856, 39938, 56605, 28677 ####[facility] [place] [address], [facility] TACROLIMUSon 06-20-2017 Tacrolimus mass conc (Bld) 4.2 ng/mL Low 5.0-20.0 [facility] Comment on above: Result Comment: The [employer] Tacrolimus assay is a delayed one-step immunoassayfor the quantitative determination of tacrolimus in human whole bloodusing the chemiluminescent microparticle immunoassay (CMIA) technologywith flexible assay protocols, referred to as Chemiflex. Performed By: #### 4 1000, 70314, 67061, 66692, 86158, 80768 ####[facility] [facility].[address] URIC ACID BLOODon 06-20-2017 Urate mass conc 4.3 mg/dL Normal 2.3-6.6 The [facility] Comment on above: Performed By: #### 4 1000, 28751, 35676, 37192, 26192, 09474 ####[facility] [facility].[address] BK VIRUS QUANTITATION PCR BL OODon 05-27-2017 BKV QUANT PCR Not detected Normal The [facility] Comment on above: Result Comment: Meth od: BK virus was measured by quantitative polymerase chain reactionusing a TaqMan probe targeting the polyomavirus BK FIELD CONTROL INSPECTOR-1 gene.The lower limit of quantitation of the assay is 500 copies of BK genomeper milliliter of plasma or urine, and any detectable BK DNA below thatlevel is reported as: Detected, <500 copies/ml. Serial BK virusmeasurement can be used to monitor disease activity. (Reference:Kelsie vaughanl. J CLIN MICRO 2004; 42:5043-3579).This test was developed and its performance characteristics determinedby the [facility]. It has not been approvedby the [place] Food and Drug Administration. However, such approval is notrequired for clinical implementation, and test results have been shownto be clinically useful. This laboratory is CAP accredited and CLIAcertified to perform high complexity testing. Performed By: #### 4 1000, 31462, 79391, 14084, 39756, 40503 ####[facility] [facility].[address] LOG 10 COPIES Not detected Normal The [facility] Comment on above: Performed By: #### 4 1000, 75698, 21058, 84291, 50108, 15725 ####[facility] [facility].[address] CBC W/DIFFon 05-27-2017 ABS BASOPHILS 0.0 10*3/uL Normal 0.0-0.2 The [facility] Comment on above: Performed By: #### 4 1000, 00224, 61834, 85863, 59171, 21499 ####[facility] [facility].[address] ABS IMM GRANS 0.0 10*3/uL Normal 0.0-0.2 The [facility] Comment on above: Performed By: #### 4 1000, 04048, 58160, 69046, 07989, 76836 ####[facility] [facility].[address] ABS NEUTROPHILS 4.8 10*3/uL Normal 1.6-7.6 The [facility] Comment on above: Performed By: #### 4 1000, 32679, 36846, 41481, 99278, 99301 ####[facility] [facility].[address] Basophils Auto #/vol (Bld) 0.0 % Normal 0.0-1.0 The [facility] Comment on above: Performed By: #### 4 1000, 67252, 50269, 32365, 68891, 67667 ####[facility] [facility].[address] Eosinophils Auto #/vol (Bld) 0.1 10*3/uL Normal 0.0-0.5 [facility] Comment on above: Performed By: #### 4 1000, 66533, 72072, 64568, 10269, 37567 ####[facility] Eosinophils/100 WBC Auto (Bld) 1.1 % Normal 0.0-6.0 [facility] Comment on above: Performed By: #### 4 1000, 78555, 22533, 56855, 44077, 39575 ####[facility] [facility].[address] Erythrocyte distribution width Auto Ratio (RBC) 13.5 % Normal 11.5-15.0 [facility] Comment on above: Performed By: #### 4 1000, 80615, 35191, 47378, 88522, 13751 ####[facility] Hematocrit Auto Volume Fraction (Bld) 46.1 % High 36.0-45.0 [facility] Comment on above: Performed By: #### 4 1000, 42308, 11197, 33465, 62217, 05614 ####[facility] [facility].[address] Hemoglobin mass conc (Bld) 15.0 g/dL Normal 12.0-15.0 [facility] Comment on above: Performed By: #### 4 1000, 47089, 36732, 62484, 29075, 64949 ####[facility] IMMATURE GRANS 0.3 % Normal 0.0-1.0 The [facility] Comment on above: Performed By: #### 4 1000, 63352, 35667, 44976, 36773, 44165 ####[facility] [facility].[address] Lymphocytes Auto #/vol (Bld) 1.0 10*3/uL Low 1.2-4.0 [facility] Comment on above: Performed By: #### 4 1000, 14575, 41430, 66453, 47265, 64498 ####[facility] [place] [facility] Lymphocytes/100 WBC Auto (Bld) 15.7 % Low 20.0-45.0 [facility] Comment on above: Performed By: #### 4 1000, 77216, 79039, 23925, 93860, 79233 ####[facility]3000 [facility] MCH Auto Entitic mass (RBC) 28.8 pg Normal 27.0-33.0 [facility] Comment on above: Performed By: #### 4 1000, 89881, 07190, 98373, 37298, 83076 ####[facility] [facility].[address] MCHC Auto mass conc (RBC) 32.5 g/dL Normal 32.0-35.0 [facility] Comment on above: Performed By: #### 4 1000, 51026, 61166, 99411, 14676, 53618 ####[facility]3000 [facility] MCV Auto Entitic volume (RBC) 88.7 fL Normal 82.0-98.0 [facility] Comment on above: Performed By: #### 4 1000, 61196, 74890, 37912, 25241, 15317 ####[facility] [facility].[address] Monocytes Auto #/vol (Bld) 0.8 10*3/uL Normal 0.1-1.0 [facility] Comment on above: Performed By: #### 4 1000, 02589, 95910, 69525, 73235, 95758 ####[facility] [facility].[address] MONOS 11.4 % Normal 5.0-12.0 [facility] Comment on above: Performed By: #### 4 1000, 61297, 71423, 15190, 79817, 26420 ####[facility] [place] [address], [facility] Neutrophils/100 WBC Auto (Bld) 71.5 % Normal 40.0-72.0 [facility] Comment on above: Performed By: #### 4 1000, 46933, 59543, 90476, 28120, 85340 ####[facility] Nucleated RBC/100 WBC Ratio (Bld) 0 % Normal 0-0 [facility] Comment on above: Performed By: #### 4 1000, 51610, 27061, 18535, 15063, 90129 ####[facility] [place] [address], [facility] PLAT CNT 199 10*3/uL Normal 150-400 [facility] Comment on above: Performed By: #### 4 1000, 78549, 24198, 26035, 71931, 26862 ####[facility] RBC Auto #/vol (Bld) 5.20 10*6/uL High 3.80-5.00 [facility] Comment on above: Performed By: #### 4 1000, 36396, 36198, 65424, 58844, 38991 ####[facility] [place] [address], [facility] WBC Auto #/vol (Bld) 6.6 10*3/uL Normal 4.0-10.6 [facility] Comment on above: Performed By: #### 4 1000, 02857, 44802, 85631, 87046, 95099 ####[facility] [place] [address], [facility] COMP METABOLIC PANELon 05-27 Albumin mass conc 4.6 g/dL Normal 3.5-5.7 [facility] Comment on above: Performed By: #### 4 1000, 89111, 33577, 51468, 02674, 20539 ####[facility] [facility].[address] ALKALINE PHOSPH 105 IU/L High 34-[address] [facility] Comment on above: Performed By: #### 4 1000, 89650, 25956, 03492, 96175, 82114 ####[facility] [facility].[address] ALT enzyme act/vol 20 U/L Normal 7-52 [facility] Comment on above: Performed By: #### 4 1000, 91944, 99523, 08792, 80714, 62960 ####[facility] [facility].[address] AST enzyme act/vol 23 U/L Normal 13-39 [facility] Comment on above: Performed By: #### 4 1000, 61960, 33308, 13624, 95309, 25741 ####[facility] [facility] [place] [place] [address], [facility] Bilirubin mass conc 0.6 mg/dL Normal 0.3-1.0 The [facility] Comment on above: Performed By: #### 4 1000, 34567, 06744, 98922, 28495, 75602 ####[facility] [facility].[address] Calcium mass conc 9.8 mg/dL Normal 8.6-10.3 [facility] Comment on above: Performed By: #### 4 1000, 36988, 49548, 91386, 94409, 51413 ####[facility] [facility] [place] [place] [address], [facility] Chloride molar conc 106 mmol/L Normal 98-107 [facility] Comment on above: Performed By: #### 4 1000, 60200, 16328, 10015, 68399, 75946 ####[facility] [place] [address], [facility] CO2 molar conc 30 mmol/L Normal 21-31 [facility] Comment on above: Performed By: #### 4 1000, 13784, 91240, 50524, 87336, 51341 ####[facility] [place] [address], [facility] Creatinine mass conc 0.80 mg/dL Normal 0.60-1.20 [facility] Comment on above: Performed By: #### 4 1000, 62137, 64070, 18463, 70861, 61082 ####[facility] [place] [address], [facility] GFR/1.73 sq M predicted among blacks MDRD vol rate/area (S/P/Bld) mL/min/{1.73_m2} Normal >60 [facility] Comment on above: Performed By: #### 4 1000, 12912, 11567, 09876, 12482, 20335 ####[facility] [place] [address], [facility] GFR/1.73 sq M predicted among non-blacks MDRD vol rate/area (S/P/Bld) mL/min/{1.73_m2} Normal >60 [facility] Comment on above: Performed By: #### 4 1000, 50188, 47018, 98165, 89581, 42696 ####[facility] [place] [address], [place] Glucose mass conc 90 mg/dL Normal 70-100 [facility] Comment on above: Performed By: #### 4 1000, 73440, 84176, 30495, 95936, 14567 ####[facility] [place] [address], [place] Potassium molar conc 4.0 mmol/L Normal 3.5-5.1 [facility] Comment on above: Performed By: #### 4 1000, 73470, 10032, 33615, 37767, 43330 ####[facility] Protein mass conc 6.8 g/dL Normal 6.0-8.3 [facility] Comment on above: Performed By: #### 4 1000, 39747, 51863, 77535, 89516, 16118 ####[facility] Sodium molar conc 138 mmol/L Normal 136-145 [facility] Comment on above: Performed By: #### 4 1000, 09071, 60701, 86216, 85615, 55711 ####[facility] Urea nitrogen mass conc 14 mg/dL Normal 7-25 [facility] Comment on above: Performed By: #### 4 1000, 64256, 63939, 42761, 49584, 34063 ####[facility] DIRECT BILIon 05-27-2017 Bilirubin.direct mass conc 0.1 mg/dL Normal 0.0-0.2 [facility] Comment on above: Performed By: #### 4 1000, 90062, 79898, 83802, 80255, 36795 ####[facility] EVEROLIMUS 05094ln 8 EVEROLIMUS 5.6 ng/mL Normal [facility] Comment on above: Result Comment: Ther [...] the transplantcenter.Test developed and characteristics determined by [facility]. See Compliance Statement B: [employer]/CSPerformed [employer],[address] [place] [address] xqs.[employer], Leonid Antonio MD - Lab. Director HEMOGLOBIN A1Con 05-27-2017 Glucose mass conc 108 mg/dL Normal 70-126 [facility] Comment on above: Performed By: #### 4 1000, 11897, 09559, 84885, 00329, 48465 ####[facility] [facility] [place] [place] [address], [facility] Hemoglobin A1c/Hemoglobin.tota l mass fraction (Bld) 5.4 % Normal 4.0-6.0 [facility] Comment on above: Performed By: #### 4 1000, 28727, 18855, 10274, 10412, 82214 ####[facility]3000 [facility] [place] [address], [place] LIPID PROFILEon 05-27-2017 Cholesterol in HDL mass conc 39 mg/dL Normal 23-92 [facility] Comment on above: Result Comment: Slig ht variation in normal range could be due to gender and/or age.HDL CHOLESTEROL REFERENCE RANGE:20 years and older Cardiovascular Risk> or =60 mg/dL Hnmkcimpx56 TO 59 mg/dL Low Risk<40 mg/dL High Risk Performed By: #### 4 1000, 60722, 52549, 00729, 36218, 87391 ####[facility] [place] [address], [facility] Cholesterol in LDL mass conc 52 mg/dL Normal 0-130 [facility] Comment on above: Result Comment: LDL IS A CALCULATIONLDL IS ONLY VALID IF THE TRIG IS LESS THAN 400. Performed By: #### 4 1000, 36804, 70016, 71046, 22645, 93100 ####[facility] [place] [address], [facility] Cholesterol mass conc 117 mg/dL Low 120-200 [facility] Comment on above: Result Comment: CHOL ESTEROL REFERENCE RANGE:20 YEARS AND OLDER CARDIOVASCULAR RISKLess than 200 mg/dl Low Oyua571 to 239 mg/dl Borderline Jcvp833 mg/dl and greater High Risk Performed By: #### 4 1000, 60945, 10888, 96785, 15734, 51645 ####[facility] [place] [address], [facility] Cholesterol.total/C holesterol in HDL mass ratio 3.0 {ratio} Normal .0-4.5 [facility] Comment on above: Performed By: #### 4 1000, 55120, 30117, 38230, 20643, 80438 ####[facility]3000 [facility] [place] [address], [facility] NON-HDL CHOLESTEROL 78 mg/dL Normal [facility] Comment on above: Performed By: #### 4 1000, 01228, 56556, 66324, 98434, 60775 ####[facility] [place] [address], [facility] Triglyceride mass conc 131 mg/dL Normal 40-149 [facility] Comment on above: Result Comment: TRIG LYCERIDE REFERENCE RANGE:20 YEARS AND OLDER CARDIOVASCULAR RISKLESS THAN 150 mg/dl LOW LEVC572 TO 199 mg/dl BORDERLINE NUMI869 mg/dl AND GREATER HIGH RISK Performed By: #### 4 1000, 87509, 84353, 62507, 84755, 42594 ####[facility] VLDL CHOL 26 mg/dL Normal 0-40 [facility] Comment on above: Performed By: #### 4 1000, 42018, 99396, 24899, 44305, 04724 ####[facility] MAGNESIUM BLOODon 05-27-2017 Magnesium mass conc 2.1 mg/dL Normal 1.9-2.7 [facility] Comment on above: Performed By: #### 4 1000, 02431, 37510, 47624, 26896, 36424 ####[facility]3000 [facility].[address] PHOSPHORUS BLOODon 8 Phosphate mass conc 3.5 mg/dL Normal 2.5-5.0 [facility] Comment on above: Performed By: #### 4 1000, 87791, 67316, 99616, 15993, 75509 ####[facility] [facility].[address] TACROLIMUSon 05-27-2017 Tacrolimus mass conc (Bld) 4.4 ng/mL Low 5.0-20.0 [facility] Comment on above: Result Comment: The [employer] Tacrolimus assay is a delayed one-step immunoassayfor the quantitative determination of tacrolimus in human whole bloodusing the chemiluminescent microparticle immunoassay (CMIA) technologywith flexible assay protocols, referred to as Chemiflex. Performed By: #### 4 1000, 54751, 61954, 85179, 31004, 91718 ####[facility] [facility].[address] URIC ACID BLOODon 05-27-2017 Urate mass conc 4.6 mg/dL Normal 2.3-6.6 The [facility] Comment on above: Performed By: #### 4 1000, 24725, 89953, 90795, 36321, 63281 ####[facility] CBC W/DIFFon 04-29-2017 ABS BASOPHILS 0.0 10*3/uL Normal 0.0-0.2 [facility] Comment on above: Performed By: #### 4 1000, 81563, 95375, 67560, 86868, 63628 ####[facility] ABS IMM GRANS 0.0 10*3/uL Normal 0.0-0.2 [facility] Comment on above: Performed By: #### 4 1000, 59454, 01020, 22288, 88323, 57046 ####[facility] ABS NEUTROPHILS 4.6 10*3/uL Normal 1.6-7.6 The [facility] Comment on above: Performed By: #### 4 1000, 99768, 50253, 28194, 27524, 55591 ####[facility] Basophils Auto #/vol (Bld) 0.3 % Normal 0.0-1.0 [facility] Comment on above: Performed By: #### 4 1000, 00923, 87297, 72681, 46647, 41758 ####[facility] [facility].[address] Eosinophils Auto #/vol (Bld) 0.1 10*3/uL Normal 0.0-0.5 [facility] Comment on above: Performed By: #### 4 1000, 43627, 41071, 15190, 28585, 38677 ####[facility] Eosinophils/100 WBC Auto (Bld) 1.7 % Normal 0.0-6.0 [facility] Comment on above: Performed By: #### 4 1000, 77923, 22468, 02617, 40740, 09417 ####[facility] Erythrocyte distribution width Auto Ratio (RBC) 13.7 % Normal 11.5-15.0 [facility] Comment on above: Performed By: #### 4 1000, 08530, 46493, 64571, 21794, 58570 ####[facility] Hematocrit Auto Volume Fraction (Bld) 45.0 % Normal 36.0-45.0 [facility] Comment on above: Performed By: #### 4 1000, 16295, 01163, 17855, 43450, 34983 ####[facility] Hemoglobin mass conc (Bld) 14.9 g/dL Normal 12.0-15.0 [facility] Comment on above: Performed By: #### 4 1000, 86980, 10317, 72958, 16345, 16238 ####[facility] IMMATURE GRANS 0.3 % Normal 0.0-1.0 The [facility] Comment on above: Performed By: #### 4 1000, 64669, 65350, 52409, 58114, 87450 ####[facility] Lymphocytes Auto #/vol (Bld) 0.9 10*3/uL Low 1.2-4.0 [facility] Comment on above: Performed By: #### 4 1000, 92708, 23588, 52173, 36184, 48962 ####[facility] Lymphocytes/100 WBC Auto (Bld) 14.2 % Low 20.0-45.0 [facility] Comment on above: Performed By: #### 4 1000, 94554, 26984, 63246, 46397, 59489 ####[facility] MCH Auto Entitic mass (RBC) 29.4 pg Normal 27.0-33.0 [facility] Comment on above: Performed By: #### 4 1000, 32949, 83940, 86455, 39704, 07234 ####[facility] MCHC Auto mass conc (RBC) 33.1 g/dL Normal 32.0-35.0 [facility] Comment on above: Performed By: #### 4 1000, 39042, 27052, 80535, 57885, 42842 ####[facility] MCV Auto Entitic volume (RBC) 88.8 fL Normal 82.0-98.0 [facility] Comment on above: Performed By: #### 4 1000, 06354, 32369, 95900, 27268, 21823 ####[facility] Monocytes Auto #/vol (Bld) 0.8 10*3/uL Normal 0.1-1.0 [facility] Comment on above: Performed By: #### 4 1000, 22600, 71345, 39383, 58247, 71066 ####[facility] MONOS 12.2 % High 5.0-12.0 [facility] Comment on above: Performed By: #### 4 1000, 43003, 43309, 87194, 98705, 39998 ####[facility] Neutrophils/100 WBC Auto (Bld) 71.3 % Normal 40.0-72.0 [facility] Comment on above: Performed By: #### 4 1000, 41229, 50282, 91603, 95135, 88390 ####[place] [address] [facility].[address] Nucleated RBC/100 WBC Ratio (Bld) 0 % Normal 0-0 [facility] Comment on above: Performed By: #### 4 1000, 12926, 31360, 48596, 23739, 16051 ####[place] [address] [facility].[address] PLAT CNT 215 10*3/uL Normal 150-400 The [facility] Comment on above: Performed By: #### 4 1000, 73157, 61460, 64981, 64869, 99001 ####[address] RBC Auto #/vol (Bld) 5.07 10*6/uL High 3.80-5.00 [facility] Comment on above: Performed By: #### 4 1000, 35255, 22625, 36631, 28278, 53896 ####[place] [address] [facility].[address] WBC Auto #/vol (Bld) 6.5 10*3/uL Normal 4.0-10.6 [facility] Comment on above: Performed By: #### 4 1000, 20124, 51554, 48468, 68055, 16492 ####[place] [address] [facility].[address] COMP METABOLIC PANELon 04-29 Albumin mass conc 4.4 g/dL Normal 3.5-5.7 [facility] Comment on above: Performed By: #### 4 1000, 86271, 74876, 75746, 44023, 78750 ####[facility] [place] [address], [facility] ALKALINE PHOSPH 114 IU/L High 34-104 The [facility] Comment on above: Performed By: #### 4 1000, 49135, 02976, 41699, 97073, 99619 ####[facility] [place] [address], [facility] ALT enzyme act/vol 15 U/L Normal 7-52 The [facility] Comment on above: Performed By: #### 4 1000, 76149, 23476, 38272, 95015, 44261 ####[facility]3000 [facility] [place] [place] [address], [facility] AST enzyme act/vol 19 U/L Normal 13-39 The [facility] Comment on above: Performed By: #### 4 1000, 33689, 08594, 29948, 24721, 83571 ####[facility] [place] [address], [facility] Bilirubin mass conc 0.7 mg/dL Normal 0.3-1.0 The [facility] Comment on above: Performed By: #### 4 1000, 72154, 91536, 38395, 20950, 11171 ####[facility]3000 [facility] [place] [place] [address], [facility] Calcium mass conc 9.6 mg/dL Normal 8.6-10.3 [facility] Comment on above: Performed By: #### 4 1000, 53976, 60754, 46513, 62954, 42329 ####[facility] [place] [address], [facility] Chloride molar conc 103 mmol/L Normal 98-107 The [facility] Comment on above: Performed By: #### 4 1000, 24718, 99205, 58164, 13783, 68978 ####[facility] [place] [address], [place] CO2 molar conc 29 mmol/L Normal 21-31 [facility] Comment on above: Performed By: #### 4 1000, 12518, 80129, 20896, 08705, 37211 ####[facility] [place] [address], [place] Creatinine mass conc 0.79 mg/dL Normal 0.60-1.20 [facility] Comment on above: Performed By: #### 4 1000, 64368, 56265, 15348, 44483, 63502 ####[facility] [place] [address], [facility] GFR/1.73 sq M predicted among blacks MDRD vol rate/area (S/P/Bld) mL/min/{1.73_m2} Normal >60 [facility] Comment on above: Performed By: #### 4 1000, 17230, 59717, 05035, 56757, 53549 ####[facility] [place] [address], [facility] GFR/1.73 sq M predicted among non-blacks MDRD vol rate/area (S/P/Bld) mL/min/{1.73_m2} Normal >60 [facility] Comment on above: Performed By: #### 4 1000, 68277, 52640, 17733, 59889, 06474 ####[facility] [place] [address], [place] Glucose mass conc 90 mg/dL Normal 70-100 [facility] Comment on above: Performed By: #### 4 1000, 04360, 70852, 49706, 77898, 11347 ####[facility] [place] [address], [place] Potassium molar conc 3.8 mmol/L Normal 3.5-5.1 [facility] Comment on above: Performed By: #### 4 1000, 51993, 85166, 77540, 30904, 38757 ####[facility] Protein mass conc 7.2 g/dL Normal 6.0-8.3 [facility] Comment on above: Performed By: #### 4 1000, 69498, 60486, 46698, 70560, 56853 ####[facility] Sodium molar conc 140 mmol/L Normal 136-145 [facility] Comment on above: Performed By: #### 4 1000, 94472, 28768, 18255, 30307, 06191 ####[facility] Urea nitrogen mass conc 15 mg/dL Normal 7-25 [facility] Comment on above: Performed By: #### 4 1000, 11811, 94040, 16858, 39951, 19352 ####[facility] DIRECT BILIon 04-29-2017 Bilirubin.direct mass conc 0.1 mg/dL Normal 0.0-0.2 [facility] Comment on above: Order Comment: Liver Battery conflicts with Comprehensive Metabolic Panel. Liver Battery canceled and Direct Bilirubin added. Performed By: #### 4 1000, 59662, 15477, 21094, 81845, 60453 ####[facility] EVEROLIMUS 67960lo 8 EVEROLIMUS 5.4 ng/mL Normal [facility] Comment on above: Result Comment: Ther [...] the transplantcenter.Test developed and characteristics determined by [facility]. See Compliance Statement B: [employer],[address] [place] [id number] hse.[employer], Leonid Antonio MD - Lab. Director LIPID PROFILEon 04-29-2017 Cholesterol in HDL mass conc 49 mg/dL Normal 23-92 [facility] Comment on above: Result Comment: Slig ht variation in normal range could be due to gender and/or age.HDL CHOLESTEROL REFERENCE RANGE:20 years and older Cardiovascular Risk> or =60 mg/dL Vtezpcnam12 TO 59 mg/dL Low Risk<40 mg/dL High Risk Performed By: #### 4 1000, [id number], [id number], 30550, [id number], [id number] ####[facility] [facility].[address] Cholesterol in LDL mass conc 52 mg/dL Normal 0-130 [facility] Comment on above: Result Comment: LDL IS A CALCULATIONLDL IS ONLY VALID IF THE TRIG IS LESS THAN 400. Performed By: #### 4 1000, [id number], 72414, 52135, [id number], [id number] ####[facility] [place] [address], [facility] Cholesterol mass conc 122 mg/dL Normal 120-200 [facility] Comment on above: Result Comment: CHOL ESTEROL REFERENCE RANGE:20 YEARS AND OLDER CARDIOVASCULAR RISKLess than 200 mg/dl Low Szvt507 to 239 mg/dl Borderline Fhey884 mg/dl and greater High Risk Performed By: #### 4 1000, 05969, 93780, 98140, 53165, 51349 ####[facility] [facility].[address] Cholesterol.total/C holesterol in HDL mass ratio 2.5 {ratio} Normal .0-4.5 [facility] Comment on above: Performed By: #### 4 1000, 44702, 07295, 48590, 54261, 81961 ####[facility] [facility].[address] NON-HDL CHOLESTEROL 73 mg/dL Normal The [facility] Comment on above: Performed By: #### 4 1000, 13618, 06546, 04822, 65834, 67452 ####[facility] [facility].[address] Triglyceride mass conc 106 mg/dL Normal 40-149 [facility] Comment on above: Result Comment: TRIG LYCERIDE REFERENCE RANGE:20 YEARS AND OLDER CARDIOVASCULAR RISKLESS THAN 150 mg/dl LOW OWVR289 TO 199 mg/dl BORDERLINE XRHG286 mg/dl AND GREATER HIGH RISK Performed By: #### 4 1000, 94429, 18080, 75780, 49247, 78383 ####[facility] [facility].[address] VLDL CHOL 21 mg/dL Normal 0-40 [facility] Comment on above: Performed By: #### 4 1000, 79080, 11165, 29998, 25438, 63779 ####[facility] [facility].[address] MAGNESIUM BLOODon 04-29-2017 Magnesium mass conc 2.1 mg/dL Normal 1.9-2.7 [facility] Comment on above: Performed By: #### 4 1000, 03656, 88837, 02119, 23037, 59083 ####[facility] [facility] [place] [place] [address], [facility] PHOSPHORUS BLOODon 8 Phosphate mass conc 3.3 mg/dL Normal 2.5-5.0 [facility] Comment on above: Performed By: #### 4 1000, 05265, 43923, 40775, 20206, 18529 ####[facility] [facility].[address] TACROLIMUSon 04-29-2017 Tacrolimus mass conc (Bld) 4.6 ng/mL Low 5.0-20.0 [facility] Comment on above: Result Comment: The [employer] Tacrolimus assay is a delayed one-step immunoassayfor the quantitative determination of tacrolimus in human whole bloodusing the chemiluminescent microparticle immunoassay (CMIA) technologywith flexible assay protocols, referred to as Chemiflex. Performed By: #### 4 1000, 44789, 76554, 75651, 82473, 71091 ####[facility] [facility].[address] URIC ACID BLOODon 04-29-2017 Urate mass conc 4.6 mg/dL Normal 2.3-6.6 The [facility] Comment on above: Performed By: #### 4 1000, 55060, 44271, 42711, 17693, 15848 ####[place] [address] [facility].[address] CBC W/DIFFon 03-27-2017 Basophils Auto #/vol (Bld) 0.2 % Normal 0.0-2.0 [facility] Comment on above: Performed By: #### 4 1000, 81215, 78594, 32500, 96278, 17254 ####[facility] [facility].[address] Eosinophils/100 WBC Auto (Bld) 1.8 % Normal 0.0-5.0 [facility] Comment on above: Performed By: #### 4 1000, 56477, 83541, 61860, 59299, 12256 ####[facility] Erythrocyte distribution width Auto Ratio (RBC) 13.6 % Normal 11.5-16.9 [facility] Comment on above: Performed By: #### 4 1000, 80883, 87312, 75916, 08359, 37764 ####[facility]3000 [facility].[address] Hematocrit Auto Volume Fraction (Bld) 47.6 % Normal 36.0-48.0 [facility] Comment on above: Performed By: #### 4 1000, 64528, 98847, 46788, 53259, 42943 ####[facility]3000 [facility].[address] Hemoglobin mass conc (Bld) 15.8 g/dL High 12.0-15.0 [facility] Comment on above: Performed By: #### 4 1000, 17131, 60524, 10574, 48062, 61635 ####[facility]3000 [facility].[address] Lymphocytes/100 WBC Auto (Bld) 14.5 % Low 20.0-40.0 [facility] Comment on above: Performed By: #### 4 1000, 69093, 14524, 42670, 64926, 28075 ####[facility] MCH Auto Entitic mass (RBC) 29.0 pg Normal 24.0-32.0 [facility] Comment on above: Performed By: #### 4 1000, 70479, 41814, 61304, 74639, 49312 ####[facility] MCHC Auto mass conc (RBC) 33.3 g/dL Normal 32.0-36.0 [facility] Comment on above: Performed By: #### 4 1000, 24030, 73453, 45347, 17279, 71348 ####[facility] MCV Auto Entitic volume (RBC) 87.4 fL Normal 80.0-100.0 [facility] Comment on above: Performed By: #### 4 1000, 04332, 45776, 17776, 34221, 89941 ####[facility] METHOD Normal RBC Morphology Normal [facility] Comment on above: Performed By: #### 4 1000, 69747, 46950, 76042, 49093, 82254 ####[facility] MONOS 9.6 % High 2-8 [facility] Comment on above: Performed By: #### 4 1000, 28466, 95536, 68632, 97336, 89245 ####[facility] Neutrophils/100 WBC Auto (Bld) 73.9 % High 50-70 [facility] Comment on above: Performed By: #### 4 1000, 00089, 00249, 92135, 32086, 61131 ####[facility] PLAT CNT 228 Thou/mm3 Normal 100-400 [facility] Comment on above: Performed By: #### 4 1000, 13297, 52034, 35329, 19128, 71591 ####[facility] RBC Auto #/vol (Bld) 5.45 mill/mm3 Normal 3.50-5.50 [facility] Comment on above: Performed By: #### 4 1000, 25658, 27109, 85360, 46698, 25692 ####[facility] WBC Auto #/vol (Bld) 6.5 Thou/mm3 Normal 4.0-10.0 [facility] Comment on above: Performed By: #### 4 1000, 91056, 32954, 52886, 67870, 06403 ####[facility] COMP METABOLIC PANELon 03-27 Albumin mass conc 4.7 g/dL Normal 3.5-5.7 [facility] Comment on above: Performed By: #### 4 1000, 48963, 80582, 11126, 45082, 49814 ####[facility] ALKALINE PHOSPH 99 IU/L Normal 34-[address] [facility] [facility] Comment on above: Performed By: #### 4 1000, 75259, 50335, 86577, 71261, 87855 ####[facility] ALT enzyme act/vol 19 U/L Normal 7-52 [facility] Comment on above: Performed By: #### 4 1000, 92138, 75818, 41698, 41549, 90468 ####[facility] AST enzyme act/vol 21 U/L Normal 13-39 [facility] Comment on above: Performed By: #### 4 1000, 62499, 35832, 27403, 65224, 67771 ####[facility] Bilirubin mass conc 0.6 mg/dL Normal 0.3-1.0 [facility] Comment on above: Performed By: #### 4 1000, 69330, 14484, 79033, 28224, 68040 ####[facility] [place] [address], [place] Calcium mass conc 10.2 mg/dL Normal 8.6-10.3 [facility] Comment on above: Performed By: #### 4 1000, 40160, 82619, 93638, 09723, 03662 ####[facility] [place] [address], [place] Chloride molar conc 104 mmol/L Normal 98-107 [facility] Comment on above: Performed By: #### 4 1000, 95153, 17061, 03595, 36988, 82574 ####[facility] [place] [address], [place] CO2 molar conc 28 mmol/L Normal 21-31 The [facility] Comment on above: Performed By: #### 4 1000, 99284, 89213, 96363, 93569, 51357 ####[facility] [place] [address], [place] Creatinine mass conc 0.78 mg/dL Normal 0.60-1.20 [facility] Comment on above: Performed By: #### 4 1000, 54155, 69687, 21415, 44864, 28154 ####[facility] [place] [address], [place] GFR/1.73 sq M predicted among blacks MDRD vol rate/area (S/P/Bld) mL/min/{1.73_m2} Normal >60 [facility] Comment on above: Performed By: #### 4 1000, 30390, 29946, 46963, 85949, 69439 ####[facility] [place] [address], [place] GFR/1.73 sq M predicted among non-blacks MDRD vol rate/area (S/P/Bld) mL/min/{1.73_m2} Normal >60 [facility] Comment on above: Performed By: #### 4 1000, 52433, 95128, 94593, 00751, 47842 ####[facility] [place] [address], [facility] Glucose mass conc 87 mg/dL Normal 70-100 [facility] Comment on above: Performed By: #### 4 1000, 03028, 75880, 27808, 76455, 15169 ####[facility] [place] [address], [facility] Potassium molar conc 4.1 mmol/L Normal 3.5-5.1 [facility] Comment on above: Performed By: #### 4 1000, 87009, 05191, 01703, 74997, 34091 ####[facility] [place] [address], [facility] Protein mass conc 7.8 g/dL Normal 6.0-8.3 [facility] Comment on above: Performed By: #### 4 1000, 93772, 68166, 57892, 67626, 78483 ####[facility] [place] [address], [facility] Sodium molar conc 139 mmol/L Normal 136-145 [facility] Comment on above: Performed By: #### 4 1000, 67836, 82013, 28732, 42698, 48674 ####[facility] [place] [address], [place] Urea nitrogen mass conc 19 mg/dL Normal 7-25 [facility] Comment on above: Performed By: #### 4 1000, 83034, 44926, 99661, 88098, 98903 ####[facility] [place] [address], [place] DIRECT BILIon 03-27-2017 Bilirubin.direct mass conc 0.1 mg/dL Normal 0.0-0.2 [facility] Comment on above: Performed By: #### 4 1000, 35783, 06965, 16529, 94993, 03584 ####[facility] EVEROLIMUS 38098rk 7 EVEROLIMUS 5.3 ng/mL Normal [facility] Comment on above: Result Comment: Ther [...] the transplantcenter.Test developed and characteristics determined by [facility]. See Compliance Statement B: [employer]/CSPerformed by [employer],[address] [place] [id number] vhw.[employer], Leonid Antonio MD - Lab. Director LIPID PROFILEon 03-27-2017 Cholesterol in HDL mass conc 50 mg/dL Normal 23-92 [facility] Comment on above: Result Comment: Slig ht variation in normal range could be due to gender and/or age.HDL CHOLESTEROL REFERENCE RANGE:20 years and older Cardiovascular Risk> or =60 mg/dL Fmzfcwjwj59 TO 59 mg/dL Low Risk<40 mg/dL High Risk Performed By: #### 4 1000, 20757, 08915, 91804, 14734, 44493 ####[facility] [place] [address], [facility] Cholesterol in LDL mass conc 66 mg/dL Normal 0-130 [facility] Comment on above: Result Comment: LDL IS A CALCULATIONLDL IS ONLY VALID IF THE TRIG IS LESS THAN 400. Performed By: #### 4 1000, 47487, 42949, 60544, 62867, 30509 ####[facility] [place] [address], [facility] Cholesterol mass conc 147 mg/dL Normal 120-200 [facility] Comment on above: Result Comment: CHOL ESTEROL REFERENCE RANGE:20 YEARS AND OLDER CARDIOVASCULAR RISKLess than 200 mg/dl Low Bfcw264 to 239 mg/dl Borderline Nehl291 mg/dl and greater High Risk Performed By: #### 4 1000, 85628, 06187, 18979, 37429, 04077 ####[facility] [facility] [place] [place] [address], [facility] Cholesterol.total/C holesterol in HDL mass ratio 2.9 {ratio} Normal .0-4.5 [facility] Comment on above: Performed By: #### 4 1000, 28593, 61835, 24270, 88267, 46943 ####[facility] [facility] [place] [address], [facility] NON-HDL CHOLESTEROL 97 mg/dL Normal The [facility] Comment on above: Performed By: #### 4 1000, 18815, 17391, 41415, 07905, 28408 ####[facility] [place] [address], [facility] Triglyceride mass conc 157 mg/dL High 40-149 [facility] Comment on above: Result Comment: TRIG LYCERIDE REFERENCE RANGE:20 YEARS AND OLDER CARDIOVASCULAR RISKLESS THAN 150 mg/dl LOW [id number] TO 199 mg/dl BORDERLINE IMUH881 mg/dl AND GREATER HIGH RISK Performed By: #### 4 1000, 66382, 25852, 32707, 85880, 30635 ####[facility] VLDL CHOL 31 mg/dL Normal 0-40 [facility] Comment on above: Performed By: #### 4 1000, 55285, 37186, 06196, 21587, 34004 ####[facility] [place] [address], [facility] MAGNESIUM BLOODon 03-27-2017 Magnesium mass conc 1.9 mg/dL Normal 1.9-2.7 The [facility] Comment on above: Performed By: #### 4 1000, 48263, 97961, 20163, 09722, 41811 ####[facility]3000 [facility] [place] [address], [facility] PHOSPHORUS BLOODon 7 Phosphate mass conc 3.4 mg/dL Normal 2.5-5.0 The [facility] Comment on above: Performed By: #### 4 1000, 74447, 38052, 09249, 28950, 97924 ####[facility] [facility].[address] TACROLIMUSon 03-27-2017 Tacrolimus mass conc (Bld) 3.7 ng/mL Low 5.0-20.0 [facility] Comment on above: Result Comment: The [employer] Tacrolimus assay is a delayed one-step immunoassayfor the quantitative determination of tacrolimus in human whole bloodusing the chemiluminescent microparticle immunoassay (CMIA) technologywith flexible assay protocols, referred to as Chemiflex. Performed By: #### 4 1000, 02294, 97200, 32539, 96411, 42477 ####[facility]3000 [facility] [place] [address], [facility] URIC ACID BLOODon 03-27-2017 Urate mass conc 4.1 mg/dL Normal 2.3-6.6 The [facility] Comment on above: Performed By: #### 4 1000, 06542, 30111, 75266, 96971, 80394 ####[facility] BK VIRUS QUANTITATION PCR BL OODon 02-26-2017 BKV QUANT PCR Not detected Normal The [facility] Comment on above: Result Comment: Meth od: BK virus was measured by quantitative polymerase chain reactionusing a TaqMan probe targeting the polyomavirus BK FIELD CONTROL INSPECTOR-1 gene.The lower limit of quantitation of the assay is 500 copies of BK genomeper milliliter of plasma or urine, and any detectable BK DNA below thatlevel is reported as: Detected, <500 copies/ml. Serial BK virusmeasurement can be used to monitor disease activity. (Reference:Kelsie vaughanl. J CLIN MICRO 2004; 42:2795-6613).This test was developed and its performance characteristics determinedby the [facility]. It has not been approvedby the [place] Food and Drug Administration. However, such approval is notrequired for clinical implementation, and test results have been shownto be clinically useful. This laboratory is CAP accredited and CLIAcertified to perform high complexity testing. Performed By: #### 4 1000, 87631, 52793, 84767, 29609, 35520 ####[facility] [facility].[address] LOG 10 COPIES Not detected Normal The [facility] Comment on above: Performed By: #### 4 1000, 25811, 29176, 23082, 25924, 24417 ####[place] [address] [address] CBC W/DIFFon 02-26-2017 Basophils Auto #/vol (Bld) 0.3 % Normal 0.0-2.0 [facility] Comment on above: Performed By: #### 5 0103 ####[address] Eosinophils/100 WBC Auto (Bld) 2.2 % Normal 0.0-5.0 [facility] Comment on above: Performed By: #### 5 0103 ####[facility] Erythrocyte distribution width Auto Ratio (RBC) 13.8 % Normal 11.5-16.9 [facility] Comment on above: Performed By: #### 3 ####[facility] Hematocrit Auto Volume Fraction (Bld) 44.9 % Normal 36.0-48.0 [facility] Comment on above: Performed By: #### 102 ####[address] Hemoglobin mass conc (Bld) 15.0 g/dL Normal 12.0-15.0 [facility] Comment on above: Performed By: #### 102 ####[address] Lymphocytes/100 WBC Auto (Bld) 18.9 % Low 20.0-40.0 [facility] Comment on above: Performed By: #### 3 ####[address] MCH Auto Entitic mass (RBC) 28.9 pg Normal 24.0-32.0 [facility] Comment on above: Performed By: #### 3 ####[place] [address] MCHC Auto mass conc (RBC) 33.4 g/dL Normal 32.0-36.0 [facility] Comment on above: Performed By: #### 5 3 ####[address] MCV Auto Entitic volume (RBC) 86.6 fL Normal 80.0-100.0 [facility] Comment on above: Performed By: #### 5 3 ####[address] [place] [address], [facility] METHOD Normal RBC Morphology Normal [facility] Comment on above: Performed By: #### 5 0103 ####[facility] [facility] [place] [place] [address], [facility] MONOS 11.7 % High 2-8 [facility] Comment on above: Performed By: #### 5 0103 ####[facility] [facility] [place] [place] [address], [facility] Neutrophils/100 WBC Auto (Bld) 66.9 % Normal 50-70 [facility] Comment on above: Performed By: #### 5 0103 ####[place] [address] [facility] [place] [place] [address], [facility] PLAT CNT 230 Thou/mm3 Normal 100-400 The [facility] Comment on above: Performed By: #### 5 0103 ####[facility] [facility] [place] [address], [facility] RBC Auto #/vol (Bld) 5.18 mill/mm3 Normal 3.50-5.50 [facility] Comment on above: Performed By: #### 5 0103 ####[facility] [facility].[address] WBC Auto #/vol (Bld) 5.8 Thou/mm3 Normal 4.0-10.0 [facility] Comment on above: Performed By: #### 5 3 ####[facility] [facility].[address] COMP METABOLIC PANELon 02-26 Albumin mass conc 4.7 g/dL Normal 3.5-5.7 [facility] Comment on above: Performed By: #### 4 1000, 27325, 36224, 03085, 00653, 34392 ####[facility] [facility].[address] ALKALINE PHOSPH 115 IU/L High 34-104 The [facility] Comment on above: Performed By: #### 4 1000, 18263, 22087, 09790, 48490, 74169 ####[facility] [id number], [facility] ALT enzyme act/vol 18 U/L Normal 7-52 The [facility] Comment on above: Performed By: #### 4 1000, 74677, 33816, 61724, 89660, 50730 ####[facility] [place] [address], [facility] AST enzyme act/vol 22 U/L Normal 13-39 The [facility] Comment on above: Performed By: #### 4 1000, 10624, 53861, 05137, 98579, 96425 ####[facility] [place] [address], [facility] Bilirubin mass conc 0.6 mg/dL Normal 0.3-1.0 [facility] Comment on above: Performed By: #### 4 1000, 95137, 49213, 54761, 63140, 04353 ####[facility] [place] [address], [facility] Calcium mass conc 9.8 mg/dL Normal 8.6-10.3 [facility] Comment on above: Performed By: #### 4 1000, 59429, 86624, 08829, 27453, 18350 ####[facility] [place] [address], [place] Chloride molar conc 103 mmol/L Normal 98-107 [facility] Comment on above: Performed By: #### 4 1000, 80968, 92194, 60659, 38423, 29800 ####[facility] [place] [address], [place] CO2 molar conc 29 mmol/L Normal 21-31 The [facility] Comment on above: Performed By: #### 4 1000, 00817, 87490, 61000, 43342, 94343 ####[facility] [place] [address], [facility] Creatinine mass conc 0.78 mg/dL Normal 0.60-1.20 [facility] Comment on above: Performed By: #### 4 1000, 85779, 32471, 24368, 85702, 10532 ####[facility] [place] [address], [facility] GFR/1.73 sq M predicted among blacks MDRD vol rate/area (S/P/Bld) mL/min/{1.73_m2} Normal >60 [facility] Comment on above: Performed By: #### 4 1000, 13976, 13058, 98125, 60577, 45709 ####[facility] [place] [address], [facility] GFR/1.73 sq M predicted among non-blacks MDRD vol rate/area (S/P/Bld) mL/min/{1.73_m2} Normal >60 [facility] Comment on above: Performed By: #### 4 1000, 63506, 58571, 46459, 30982, 02246 ####[facility] [place] [address], [facility] Glucose mass conc 94 mg/dL Normal 70-100 [facility] Comment on above: Performed By: #### 4 1000, 80692, 97018, 97605, 75084, 84905 ####[facility] [place] [address], [facility] Potassium molar conc 3.8 mmol/L Normal 3.5-5.1 [facility] Comment on above: Performed By: #### 4 1000, 86351, 45747, 68708, 43627, 84280 ####[facility] Protein mass conc 7.4 g/dL Normal 6.0-8.3 [facility] Comment on above: Performed By: #### 4 1000, 53685, 54075, 58316, 41741, 66502 ####[facility] Sodium molar conc 136 mmol/L Normal 136-145 [facility] Comment on above: Performed By: #### 4 1000, 59037, 69277, 72159, 55723, 73919 ####[facility] Urea nitrogen mass conc 19 mg/dL Normal 7-25 [facility] Comment on above: Performed By: #### 4 1000, 22230, 86071, 41296, 30245, 88070 ####[facility] DIRECT BILIon 02-26-2017 Bilirubin.direct mass conc 0.1 mg/dL Normal 0.0-0.2 [facility] Comment on above: Performed By: #### 4 1000, 64388, 21096, 17800, 36017, 31321 ####[facility] EVEROLIMUS [id number] 7 EVEROLIMUS 5.9 ng/mL Normal [facility] Comment on above: Result Comment: Ther [...] the transplantcenter.Test developed and characteristics determined by [employer]. See Compliance Statement B: [employer]/CSPerformed by [employer],[address] [place] [address] whn.[employer], Leonid Antonio MD - Lab. Director HEMOGLOBIN A1Con 02-26-2017 Glucose mass conc 108 mg/dL Normal 70-126 [facility] Comment on above: Performed By: #### 4 4327, 55498 ####[facility] Hemoglobin A1c/Hemoglobin.tota l mass fraction (Bld) 5.4 % Normal 4.0-6.0 [facility] Comment on above: Performed By: #### 4 0856, 70308 ####[facility] [facility].[address] LIPID PROFILEon 02-26-2017 Cholesterol in HDL mass conc 54 mg/dL Normal 23-92 [facility] Comment on above: Result Comment: Slig ht variation in normal range could be due to gender and/or age.HDL CHOLESTEROL REFERENCE RANGE:20 years and older Cardiovascular Risk> or =60 mg/dL [id number] TO 59 mg/dL Low Risk<40 mg/dL High Risk Performed By: #### 4 1000, 69920, 29264, 57499, 95321, 53405 ####[facility] [facility] [place] [place] [address], [facility] Cholesterol in LDL mass conc 70 mg/dL Normal 0-130 [facility] Comment on above: Result Comment: LDL IS A CALCULATIONLDL IS ONLY VALID IF THE TRIG IS LESS THAN 400. Performed By: #### 4 1000, 58962, 09552, 69410, 34704, 90027 ####[facility] [place] [address], [facility] Cholesterol mass conc 144 mg/dL Normal 120-200 [facility] Comment on above: Result Comment: CHOL ESTEROL REFERENCE RANGE:20 YEARS AND OLDER CARDIOVASCULAR RISKLess than 200 mg/dl Low [id number] to 239 mg/dl Borderline [id number] mg/dl and greater High Risk Performed By: #### 4 1000, 74230, 45357, 52787, 72716, 70013 ####[facility] [place] [address], [facility] Cholesterol.total/C holesterol in HDL mass ratio 2.7 {ratio} Normal .0-4.5 [facility] Comment on above: Performed By: #### 4 1000, 83803, 01875, 98657, 97795, 64114 ####[facility] NON-HDL CHOLESTEROL 90 mg/dL Normal [facility] Comment on above: Performed By: #### 4 1000, 36806, 02686, 68811, 75430, 33331 ####[facility]3000 [facility] [place] [address], [facility] Triglyceride mass conc 101 mg/dL Normal 40-149 [facility] Comment on above: Result Comment: TRIG LYCERIDE REFERENCE RANGE:20 YEARS AND OLDER CARDIOVASCULAR RISKLESS THAN 150 mg/dl LOW [id number] TO 199 mg/dl BORDERLINE [id number] mg/dl AND GREATER HIGH RISK Performed By: #### 4 1000, 93265, 84571, 76571, 56923, 14672 ####[facility] [place] [address], [facility] VLDL CHOL 20 mg/dL Normal 0-40 [facility] Comment on above: Performed By: #### 4 1000, 04726, 76197, 34688, 69166, 77438 ####[facility] [facility].[address] MAGNESIUM BLOODon 02-26-2017 Magnesium mass conc 1.9 mg/dL Normal 1.9-2.7 [facility] Comment on above: Performed By: #### 4 1000, 04971, 41738, 28500, 58658, 71268 ####[facility] PHOSPHORUS BLOODon 7 Phosphate mass conc 4.1 mg/dL Normal 2.5-5.0 [facility] Comment on above: Performed By: #### 4 1000, 14433, 11349, 69317, 10293, 99416 ####[facility] TACROLIMUSon 02-26-2017 Tacrolimus mass conc (Bld) 4.2 ng/mL Low 5.0-20.0 [facility] Comment on above: Result Comment: The [employer] Tacrolimus assay is a delayed one-step immunoassayfor the quantitative determination of tacrolimus in human whole bloodusing the chemiluminescent microparticle immunoassay (CMIA) technologywith flexible assay protocols, referred to as Chemiflex. Performed By: #### 4 6447, 61059 ####[facility] URIC ACID BLOODon 02-26-2017 Urate mass conc 4.3 mg/dL Normal 2.3-6.6 [facility] Comment on above: Performed By: #### 4 1000, 26974, 87349, 40329, 57358, 24278 ####[facility] Vital Signs Date Time Vital Sign Value Performing Clinician Facility 03-27-2023 11:30-0500 Body height 152.4 cm Cathy Bella Other [facility] Other 03-27-2023 11:30-0500 Body mass index (BMI) [Ratio] 25.39 kg/m2 Cathy Bella Other [facility] Other 03-27-2023 11:30-0500 Body temperature 97.5 [degF] Cathy Shayne Other [facility] Other 03-27-2023 11:30-0500 Body weight 58.97 kg Cathy Bella Other [facility] Other 03-27-2023 11:30-0500 Respiratory rate 18 /min Cathy Bella Other [facility] Other 03-27-2023 11:30-0500 SaO2% (BldA) [Mass fraction] 96 % Cathy Bella Other [facility] Other 09-21-2022 09:00-0400 Body height 152.4 cm Martha Paola Other [facility] Other 09-21-2022 09:00-0400 Body mass index (BMI) [Ratio] 22.46 kg/m2 Martha Paola Other [facility] Other 09-21-2022 09:00-0400 Body temperature 97.6 [degF] Martha Paola Other [facility] Other 09-21-2022 09:00-0400 Body weight 52.16 kg Martha Paola Other [facility] Other 09-21-2022 09:00-0400 Diastolic blood pressure 70 mm[Hg] Martha Guevara Other [facility] Other 09-21-2022 09:00-0400 Respiratory rate 18 /min Martha Guevara Other [facility] Other 09-21-2022 09:00-0400 SaO2% (BldA) [Mass fraction] 96 % Martha Guevara Other [facility] Other 09-21-2022 09:00-0400 Systolic blood pressure 107 mm[Hg] Martha Guevara Other [facility] Other 01-12-2022 13:55-0400 Body height 152.4 cm Cathy Bella Other [facility] Other 01-12-2022 13:55-0400 Body mass index (BMI) [Ratio] 19.53 kg/m2 Cathy Bella Other [facility] Other 01-12-2022 13:55-0400 Body temperature 96.9 [degF] Cathy Bella Other [facility] Other 01-12-2022 13:55-0400 Body weight 45.36 kg Cathy Bella Other [facility] Other 01-12-2022 13:55-0400 Respiratory rate 18 /min Cathy Bella Other [facility] Other 01-12-2022 13:55-0400 SaO2% (BldA) [Mass fraction] 97 % Cathy Bella Other [facility] Other 12-28-2021 10:20-0400 Body height 152.4 cm Martha Smithmond Other [facility] Other 12-28-2021 10:20-0400 Body mass index (BMI) [Ratio] 21.48 kg/m2 Martha Guevara Other [facility] Other 12-28-2021 10:20-0400 Body temperature 98 [degF] Martha Smithmond Other [facility] Other 12-28-2021 10:20-0400 Body weight 49.9 kg Martha Guevara Other [facility] Other 12-28-2021 10:20-0400 Respiratory rate 18 /min Martha Guevara Other [facility] Other 12-28-2021 10:20-0400 SaO2% (BldA) [Mass fraction] 97 % Martha Guevara Other [facility] Other 12-25-2021 10:05-0400 Body height 152.4 cm Cathy Bella Other [facility] Other 12-25-2021 10:05-0400 Body mass index (BMI) [Ratio] 21.48 kg/m2 Cathy Bella Other [facility] Other 12-25-2021 10:05-0400 Body temperature 96 [degF] Cathy Bella Other [facility] Other 12-25-2021 10:05-0400 Body weight 49.9 kg Cathy Bella Other [facility] Other 12-25-2021 10:05-0400 Respiratory rate 18 /min Cathy Bella Other [facility] Other 12-25-2021 10:05-0400 SaO2% (BldA) [Mass fraction] 97 % Cathy Bella Other [facility] Other 10-27-2021 12:35-0400 Body height 152.4 cm Cathy Bella Other [facility] Other 10-27-2021 12:35-0400 Body mass index (BMI) [Ratio] 22.85 kg/m2 Cathy Bella Other [facility] Other 10-27-2021 12:35-0400 Body weight 53.07 kg Cathy Bella Other [facility] Other 10-27-2021 12:35-0400 Diastolic blood pressure 87 mm[Hg] Acthy Bella Other [facility] Other 10-27-2021 12:35-0400 SaO2% (BldA) [Mass fraction] 98 % Cathy Bella Other [facility] Other 10-27-2021 12:35-0400 Systolic blood pressure 130 mm[Hg] Cathy Bella Other [facility] Other 08-14-2021 10:40-0400 Body height 152.4 cm Martha Paola Other [facility] Other 08-14-2021 10:40-0400 Body mass index (BMI) [Ratio] 22.46 kg/m2 Martha Paola Other [facility] Other 08-14-2021 10:40-0400 Body temperature 96.7 [degF] Martha Paola Other [facility] Other 08-14-2021 10:40-0400 Body weight 52.16 kg Martha Paola Other [facility] Other 08-14-2021 10:40-0400 Diastolic blood pressure 68 mm[Hg] Martha Paola Other [facility] Other 08-14-2021 10:40-0400 Respiratory rate 20 /min Martha Paola Other [facility] Other 08-14-2021 10:40-0400 SaO2% (BldA) [Mass fraction] 98 % Martha Paola Other [facility] Other 08-14-2021 10:40-0400 Systolic blood pressure 144 mm[Hg] Martha Paola Other [facility] Other Encounters Encounter Date Encounter Type Care Provider Facility Start: 04-02-2023 End: 04-02-2023 ambulatory RAMON CARROLL Not Available Start: 03-27-2023 End: 03-27-2023 ambulatory Cathy Bella Other [facility] Other Start: 03-27-2023 Office outpatient visit 25 minutes Cathy Bella [facility] Start: 03-17-2023 End: 03-17-2023 ambulatory VIRGIL [facility] Start: 03-06-2023 End: 03-06-2023 ambulatory JOHN PADILLA Not Available Start: 02-12-2023 End: 02-12-2023 ambulatory JOHN PADILLA Not Available Start: 09-21-2022 End: 09-21-2022 ambulatory Martha Guevara Other [facility] Other Start: 09-21-2022 Office outpatient visit 15 minutes Marthajd Guevara [facility] Start: 09-17-2022 End: 09-17-2022 ambulatory VIRGIL HAYNES [facility] Start: 08-12-2022 End: 08-13-[address] [...] 01-12-2022 End: 01-12-2022 ambulatory Cathy Bella Other [facility] Other Start: 01-12-2022 Office outpatient visit 15 minutes Cathy Bella [facility] Start: 01-07-2022 End: 01-07-2022 ambulatory ISATU GUAMAN . Facility:[facility] Start: 01-03-2022 End: 01-04-[address] VIRGIL SWIFT Facility:[facility] Start: 12-28-2021 End: 12-28-2021 ambulatory Martha Guevara Other [facility] Other Start: 12-28-2021 Office outpatient visit 15 minutes Martha Paola [facility] Start: 12-25-2021 End: 12-25-2021 ambulatory Cathy Bella Other [facility] Other Start: 12-25-2021 Office outpatient visit 25 minutes Cathy Bella [facility] Start: 12-05-2021 End: 12-06-[address] DOCTOR MISC Facility:[facility] Start: 11-07-2021 End: 11-08-[address] DOCTOR MISC Facility:[facility] Start: 10-27-2021 End: 10-27-2021 ambulatory Cathy Bella Other [facility] Other Start: 10-27-2021 Office outpatient visit 15 minutes Cathy Bella [facility] Start: 10-15-2021 End: 10-16-[address] DOCTOR MISC Facility:[facility] Start: 10-08-2021 End: 10-09-[address] DOCTOR MISC Facility:[facility] Start: 09-10-2021 End: 09-11-[address] DOCTOR MISC Facility:[facility] Start: 08-14-2021 End: 08-14-2021 ambulatory Martha Guevara Other [facility] Other Start: 08-14-2021 Office outpatient visit 15 minutes Martha Guevara [facility] Start: 12-31-2017 End: 01-01-2018 Patient encounter VIRGIL HAYNES Facility:[facility] Start: 12-25-2017 End: 12-26-2017 Patient encounter ROSALINDA ROSENBAUM Facility:[facility] Start: 10-30-2017 End: 10-31-2017 Patient encounter ROSALINDA ROSENBAUM Facility:[facility] Start: 10-23-2017 End: 10-24-2017 Patient encounter ROSALINDA ROSENBAUM Facility:[facility] Start: 09-25-2017 End: 09-26-2017 Patient encounter ROSALINDA ROSENBAUM Facility:[facility] Start: 08-26-2017 End: 08-27-2017 Patient encounter ROSALINDA ROSENBAUM Facility:[facility] Start: 07-23-2017 End: 07-24-2017 Patient encounter ROSALINDA ROSENBAUM Facility:[facility] Start: 06-20-2017 End: 06-21-2017 Patient encounter ROSALINDA ROSENBAUM Facility:[facility] Start: 05-27-2017 End: 05-28-2017 Patient encounter ROSALINDA ROSENBAUM Facility:[facility] Start: 04-29-2017 End: 04-30-2017 Patient encounter ROSALINDA ROSENBAUM Facility:[facility] Start: 03-27-2017 End: 03-28-2017 Patient encounter ROSALINDA ROSENBAUM Facility:[facility] Start: 02-26-2017 End: 02-27-2017 Patient encounter DOE BRIDGES Facility:[facility] Procedures Date Procedure Procedure Detail Performing Clinician Start: 08-14-2021 Piperacillin/tazobactam Martha Guevara Other Immunizations Immunization Date Immunization Notes Care Provider Fa kushal 03-16-2009 influenza virus vaccine, split virus (incl. purified surface antigen) Martha Guevara Other [facility] Other Payers Date Payer Category Payer [facility] [id number] 1959 Self-pay 1959 Unknown [id number] 1956 Unknown [id number] 2.16.8 40.1.691914.3.579.2.647 1956 Unknown [id number] 2.16.8 40.1.025471.3.579.2.647 1956 Unknown [id number] 2.16.8 40.1.973551.3.579.2.647 1956 Unknown [id number] 2.16.8 40.1.745004.3.579.2.647 1956 Unknown [id number] 2.16.8 40.1.167250.3.579.2.647 1956 Unknown [id number] 2.16.8 40.1.760856.3.579.2.647 1956 Unknown [id number] 2.16.8 40.1.748058.3.579.2.647 1956 Unknown [id number] 2.16.8 40.1.592680.3.579.2.647 1956 Unknown [id number] 2.16.8 40.1.648291.3.579.2.647 1956 Unknown [id number] 2.16.8 40.1.444657.3.579.2.647 1956 Unknown [id number] 2.16.8 40.1.874416.3.579.2.647 1956 Unknown [id number] 2.16.8 40.1.687230.3.579.2.647 1956 Unknown [id number] 2.16.84 0.1.696355.3.579.2.593 1956 Unknown [id number] 2.16.84 0.1.756669.3.579.2.59 1956 Unknown [id number] 2.16.84 0.1.018071.3.579.2.593 1956 Unknown [id number] 2.16.84 0.1.908652.3.579.2.59 1956 Unknown [id number] 2.16.84 0.1.665196.3.579.2.593 1956 Unknown [id number] 2.16.84 0.1.362317.3.579.2.593 1956 Unknown [id number] 2.16.84 0.1.781693.3.579.2.593 1956 Unknown [id number] 2.16.84 0.1.124205.3.579.2.593 1956 Unknown [id number] 2.16.84 0.1.326339.3.579.2.593 1956 Unknown [id number] 2.16.84 0.1.614843.3.579.2.593 1956 Unknown [id number] 2.16.84 0.1.054417.3.579.2.593 1956 Unknown [id number] 2.16.84 0.1.692733.3.579.2.593 1956 Unknown [id number] 2.16.84 0.1.188553.3.579.2.593 1956 Unknown [id number] 2.16.84 0.1.103524.3.579.2.593 1956 Unknown [id number] 2.16.84 0.1.324418.3.579.2.593 1956 Unknown [id number] 2.16.840 .1.376498.3.579.2.1259 1956 Unknown [id number] 2.16.840 .1.136359.3.579.2.1259 1956 Unknown [id number] 2.16.840 .1.184163.3.579.2.1259 Unknown [id number] 2.16.84 0.1.075118.3.579.2.593 Social History Date Type Detail Facility Unknown if ever smoked [facility] Other Sex Assigned At Sex Assigned At Bir th [facility] Other Clinical Notes 11-10-2007 to 03-27-2023 Note [...] and rest, Tylenol as directed, rx of [place], cool mist humidifier, throat lozenges. Discussed infection [...] condition. Feb, Sore throat (ICD-10 - J02.9) [facility] Other 12-18-2023 Note03/17/23 Chief Complaint Patient presents with Kidney Follow-up Patient would like to know if Virgil would prescribe depression medication. PCP: Ramon Carroll MD Txp Referring: Preferred Pharmacy: [facility] - [place], [place] - [address] [facility] [address] [id number] - [place], [place] - [address] [facility] [address] [facility] [address] [facility] - [place], [place] - [address] [address] [facility] [address] Subjective Visit Vitals BP 142/80 (BP Location: Right arm, Patient Position: Sitting) Pulse 63 Temp 36.3 ???C (97.4 ???F) (Oral) Ht 1.524 m (5') Wt 60.6 kg (133 lb 9.6 oz) BMI 26.09 kg/m??? Smoking Status Never BSA 1.6 m??? No Known Allergies Medication Documentation Review Audit Reviewed by Tosha Lagos MA ([employer]) on 03/17/23 at 0956 Medication Order Taking? Sig Documenting Provider Last Dose Status amLODIPine (Norvasc) 5 mg tablet [id number] Yes TAKE 1 TABLET BY MOUTH EVERY DAY Virgil Haynes NP Taking Active amoxicillin (Amoxil) 500 mg capsule [id number] No 1 capsule every 8 (eight) hours. Historical Provider, Not Taking Active atorvastatin (Lipitor) 20 mg tablet [id number] Yes TAKE 1 TABLET BY MOUTH EVERY DAY AT BEDTIME Virgil Haynes NP Taking Active baclofen (Lioresal) 10 mg tablet [id number] Yes Historical Provider, Taking Active cyanocobalamin (Vitamin B-12) 500 mcg tablet [id number] No in the morning. Historical Provider, Not Taking Active magnesium oxide (Mag-Ox) 400 mg (241.3 mg magnesium) tablet [id number] Yes Take 400 mg by mouth in the morning. Historical Provider, Taking Active mycophenolate (Myfortic) 180 mg EC tablet [id number] Yes TAKE 4 TABLETS BY MOUTH IN THE MORNING AND AT BEDTIME Doe Bridges MD Taking Active omega-3 fatty acids-fish oil (Fish OiL Extra Strength) 435-880 mg capsule [id number] No 1 capsule 1 (one) time each day at the same time. Historical Provider, Not Taking Active PARoxetine (Paxil) 10 mg tablet [id number] Yes Take 10 mg by mouth in the morning. Historical Provider, Taking Active potassium gluconate 595 mg (99 mg) tablet [id number] No every 12 (twelve) hours. Historical ProviderMD Not Taking Active spironolactone (Aldactone) 25 mg tablet [id number] Yes TAKE 1 TABLET BY MOUTH EVERY DAY Virgil Haynes NP Taking Active tacrolimus (Prograf) 0.5 mg capsule [id number] Yes TAKE ONE CAPSULE BY MOUTH EVERY MORNING AND 1 CAPSULE EVERY NIGHT AT BEDTIME Anthony Kunz MD Taking Active Immunization History Administered Date(s) Administered Ramen Sars-Cov-2 Vaccination 06/07/2020 There is no problem [...] since 02/15/23 No documented travel since 02/15/23 [facility] Tanika Grimm is a 67 y.o. 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 03/17/23 Pt presents visit with . Pt states labs done Last week in [facility] and [place] calling for results. Pt seeing Derm in [place] for lesion: forearm and other lesions. Hx: [...] Hgb. Pt AGAIN instructed to use our [facility] Transplant standing order for her monthly labs. Pt reports B/P stable at home Discussed hydration PLan of Care: Continue meds and MONTHLY Labs with [facility] standing Order. Follow up 6 months [...] ; Creat 0.9 ; (more content not included)...[facility]10-18-2023 Note Reviewed Ext Tac 3.6 over the phone with Dr. Vivas, per phone order no changes at this time.[facility]07-14-2023 NoteReviewed labs from 10/09/22, no changes.[facility]06-20-2023 Note 09/17/22 Chief Complaint Patient presents with Kidney Follow-up Patient has no new concerns PCP: Ramon Carroll MD Txp Referring: Preferred Pharmacy: [facility] - [place], [place] - [address] [facility] [address] [id number] [place], [place] - [address] [facility] [address] [facility] [address] Subjective Visit Vitals BP 123/81 (BP Location: Right arm, Patient Position: Sitting, BP Cuff Size: Adult) Pulse 77 Temp 36.7 ???C (98.1 ???F) Ht 1.524 m (5') Wt 58.1 kg (128 lb) BMI 25.00 kg/m??? Smoking Status Never BSA 1.57 m??? No Known Allergies Medication Documentation Review Audit Reviewed by LUANN HERNÁNDEZ ([employer]) on 09/17/22 at 1019 Medication Order Taking? Sig Documenting Provider Last Dose Status amLODIPine (Norvasc) 5 mg tablet [id number] Take 5 mg by mouth in the morning. Yasmin Mancia MD Active amoxicillin (Amoxil) 500 mg capsule [id number] 1 capsule every 8 (eight) hours. Yasmin ProviderMD Active atorvastatin (Lipitor) 20 mg tablet [id number] Take 20 mg by mouth in the morning. Yasmin Mancia MD Active cyanocobalamin (Vitamin B-12) 500 mcg tablet [id number] in the morning. Yasmin Mancia MD Active magnesium oxide (Mag-Ox) 400 mg (241.3 mg magnesium) tablet [id number] Take 400 mg by mouth in the morning. Yasmin Mancia MD Active mycophenolate (Myfortic) 180 mg EC tablet [id number] Take 4 tablets (720 mg) by mouth in the morning and at bedtime. Patient should take as directed BID Doe Bridges MD Active omega-3 fatty acids-fish oil (Fish OiL Extra Strength) 435-880 mg capsule [id number] 1 capsule 1 (one) time each day at the same time. Historical MD Blanche Active potassium gluconate 595 mg (99 mg) tablet [id number] every 12 (twelve) hours. Yasmin Mancia MD Active spironolactone (Aldactone) 25 mg tablet [id number] Take 25 mg by mouth in the morning. Yasmin Mancia MD Active tacrolimus (Prograf) 0.5 mg capsule [id number] Take 1 capsule (0.5 mg) by mouth in the morning and at bedtime. Take 1mg tacrolimus PO Qam and 0.5mg PO Qpm or as directed TDD 2mg, z94.0 Anthony Kunz MD Active tacrolimus (Prograf) 1 mg capsule [id number] Take 1 capsule (1 mg) by mouth [...] had intermittent mild bilateral (more content not included)...[facility]10-15-2022 Evaluation note* Encounter Date Diagnosis Assessment [...] understanding and is agreeable with treatment plan [facility] Other 09-30-2022 Evaluation note* Encounter Date Diagnosis [...] no improvement in 2 to 3 days. [facility] Other 09-27-2022 Evaluation note* Encounter Date Diagnosis [...] treatment plan. 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 Medical History hypertension Medical History kidney transplant Surgical History resection of superior cervical mass 11/10/07 Surgical History Teeth extraction in preparation for renal transplant Surgical History portacath placement Surgical History kidney transplant 2013 Hospitalization History see above [facility] Other Evaluation noteNort MEEP Other History general Narrative - ReportedNortRewalk [employer] Other Summary Purpose Family History No Family [...] and content) DATE CREATED AUTHOR 01/30/2018 [facility] DATE CREATED AUTHOR AUTHOR'S ORGANIZ ATION 08/17/2021 [facility] DATE CREATED AUTHOR AUTHOR'S ORGANIZ ATION 08/13/2022 [facility] DATE CREATED AUTHOR AUTHOR'S ORGANIZ ATION 04/03/2023 [facility] DATE CREATED AUTHOR AUTHOR'S ORGANIZ ATION 05/29/2023 [facility] REASON FOR VISIT (unrecogniz ed section and content) DYSURIADYSURIADYSURIAPOSS RA SH ON BACK, ITCHINGDODGE JOURNEY, SORE THROAT, COUGHBLACK DODGE JOURNT SORE THROATIN CAR, MOUTH SORES, CALL [phone] THROAT, COUGHING, DRAINAGE FOR RECORDS PERTAINING TO [...] BE BASED ON THE PRIMARY CLINICAL RECORDS. [employer] provides no warranty or guarantee of the accuracy or completeness of information in this document.
[2023-08-11 07:13] LABS: Basophils Percent Auto 0.3 % (0.2-2.0); Eosinophils Absolute Auto 0.2 10^3/uL (0.0-0.7); Eosinophils Percent Auto 2.4 % (0.9-7.0); Hematocrit 44.2 % (36.0-48.0); Immature Granulocytes Abs Auto 0.02 10^3/uL (0.00-0.03); Immature Granulocytes Pct Auto 0.3 % (0.0-0.5); Lymphocytes Absolute Auto 1.5 10^3/uL (1.2-3.8); Lymphocytes Percent Auto 22.5 % (20.5-60.0); Mean Corpuscular HGB Conc 31.7 g/dL (29.9-35.2); Mean Corpuscular Volume 94.8 fL (81.0-99.0); Mean Platelet Volume 11.3 fL (9.5-13.5); Monocytes Absolute Auto 0.7 10^3/uL (0.3-0.8); Neutrophils Absolute Auto 4.2 10^3/uL (1.4-6.5); Neutrophils Percent Auto 63.5 % (43.0-75.0); Platelet Count 220 10^3/uL (150-450); Red Blood Count 4.66 10^6/uL (4.20-5.40); Red Cell Distribution Width 14.6 % (11.0-15.0); White Blood Count 6.6 10^3/uL (4.0-11.0)
[2023-08-11 10:56] LABS: Estimated Average Glucose 111 mg/dL; Glycohemoglobin A1C 5.5 % (4.5-6.2)
[2023-08-11 11:23] LABS: Alanine Aminotransferase 18 U/L (14-59); Albumin Globulin Ratio 1.2; Albumin Level 3.8 g/dL (3.4-5.0); Alkaline Phosphatase 139 U/L (46-116); Anion Gap 11.8; Aspartate Amino Transferase 14 U/L (15-37); BUN Creatinine Ratio 28.6; Bilirubin Direct 0.1 mg/dL (0.0-0.2); Bilirubin Total 0.6 mg/dL (0.2-1.0); Carbon Dioxide 28.1 mmol/L (21.0-32.0); Chloride 105 mmol/L (98-107); Chol HDL Ratio 2.6; Cholesterol 136 mg/dL (<=200); Estimated GFR (African America >60 (>=60); Estimated GFR (Non-African Ame >60 (>=60); Globulin 3.2 g/dL; Glucose 94 mg/dL (74-106); HDL Cholesterol 53 mg/dL (40-60); LDL Cholesterol Calculated 65.4 mg/dL; Magnesium 2.1 mg/dL (1.8-2.4); Phosphorus 4.2 mg/dL (2.6-4.7); Potassium 3.9 mmol/L (3.5-5.1); Sodium 141 mmol/L (136-145); Triglycerides 88 mg/dL (<=150); Uric Acid 5.8 mg/dL (2.6-6.0); VLDL CHOLESTEROL 17.6 mg/dL
[2023-08-13 12:11] LABS: BKV DNA, Quant PCR, Plasma Negative (Negative)
[2023-08-13 14:10] LABS: Tacrolimus (FK506), Blood 4.1 ng/mL (2.0-20.0)
== END 2023-08-11 06:40 | disposition home or self-care (01) ==
PROVIDERS: PCP Internal Medicine
DX: Z48.298 Encounter for aftercare following other organ transplant (principal); Z94.0 Kidney transplant status; Z79.899 Other long term (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 therapy
CPT/HCPCS: 36415; 80053; 80061; 80197; 82248; 83036; 83735; 84100; 84550; 85025; 87799

== ENCOUNTER 2023-09-19 06:38 | Outpatient (OUT) | payer MEDICARE, SELFPAY ==
--- OUTSIDE RECORDS SUMMARY | 2023-09-19 06:43 | XMS_ITS ---
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 Material Name Role Phone NAPAIMUTE, DINKAR Unavailable Unavailable NAPAIMUTE, DINKAR Unavailable Unavailable CARROLL, RAMON Unavailable Unavailable [...] ROSALINDA Unavailable Unavailable RATNAM, ROSALINDA Unavailable Unavailable CARRLOL, RAMON Unavailable Unavailable RATNAM, ROSALINDA Unavailable Unavailable RATNAM, ROSALINDA Unavailable Unavailable CARROLL, RAMON Unavailable Unavailable CARROLL, RAMON Unavailable Unavailable RATNAM, ROSALINDA Unavailable Unavailable RATNAM, ROSALINDA Unavailable Unavailable RATNAM, ROSALINDA Unavailable Unavailable CARROLL, RAMON Unavailable Unavailable VIRGIL HAYNES Unavailable Unavailable MIKE VIRGIL Unavailable Unavailable ZEYNEPENBERSona VIRGIL Unavailable Unavailable CARROLL, RAMON Unavailable Unavailable Martha Guevara Unavailable Cathy Bella Unavailable DR VIRGIL SWIFT A Consulting Unavailable NADERERadha, DR VIRGIL Palma Attending Unavailable CARROLL, DR DARBY Primary Care Unavailable NADERER, DR VIRGIL Palma Admitting Unavailable MARY, VITO Consulting Unavailable WARD, JOSE F Townsend Consulting Unavailable ROWENA ., ISATU Consulting Unavailable MIESHA, MAYRA Consulting Unavailable ROWENA ., ISATU Attending Unavailable ROWENA ., ISATU Admitting Unavailable CARROLL, DR DARBY Primary Care Unavailable ZIEBER, DR ARTEMIO Garcia Consulting Unavailable ITA ., HYACINTH Consulting Unavailable ROWENA ., ISATU Consulting Unavailable CARROLL, DR DARBY Admitting Unavailable CARROLL, DR DARBY Primary Care Unavailable CARROLL, DR DARBY Consulting Unavailable CARROLL, DR DARBY Attending Unavailable ZIEBER, DR ARTEMIO Garcia Consulting Unavailable CARROLL, DR DARBY Primary Care Unavailable MISC, DR OBRIEN Consulting Unavailable MISC, DR OBRIEN Attending Unavailable MISC, DR OBRIEN Admitting Unavailable NAPAIMUTE, DR CONNORS Consulting Unavailable CARROLL, DR DARBY Primary Care Unavailable MISC, DR OBRIEN Attending Unavailable MISC, DR OBRIEN Admitting Unavailable MISC, DR OBRIEN Attending Unavailable MISC, DR OBRIEN Admitting Unavailable MISC, DR OBRIEN Consulting Unavailable CARROLL, DR DARBY Primary Care Unavailable NAPAIMUTE, DR CONNORS Consulting Unavailable NAPAIMUTE, DR CONNORS Attending Unavailable CARROLL, DR DARBY Primary Care Unavailable NAPAIMUTE, DR CONNORS Admitting Unavailable NAPAIMUTE, DR CONNORS Attending Unavailable CARROLL, DR DARBY Primary Care Unavailable NAPAIMUTE, DR CONNORS Admitting Unavailable NAPAIMUTE, DR CONNORS Consulting Unavailable MISC, DR OBRIEN [...] Unavailable CARROLL, DR DARBY Primary Care Unavailable NAPAIMUTE, DR CONNORS Consulting Unavailable NAPAIMUTE, DR CONNORS Attending Unavailable CARROLL, DR DARBY Primary Care Unavailable NAPAIMUTE, DR CONNORS Admitting Unavailable MISC, DR OBRIEN Attending Unavailable MISC, DR OBRIEN Admitting Unavailable MISC, DR OBRIEN Consulting Unavailable CARROLL, DR DARBY Primary Care Unavailable MISC, DOCTOR Attending Unavailable MISC, DR OBRIEN Admitting Unavailable MISC, DR OBRIEN Consulting Unavailable CARROLL, DR DARBY Primary Care Unavailable NAPAIMUTE, DR CONNORS Consulting Unavailable NAPAIMUTE, DR CONNORS Attending Unavailable NAPAIMUTE, DR CONNORS Admitting Unavailable UZMA, DR DARBY Primary Care Unavailable VIRGIL HAYNES Attending Unavailable VIRGIL HAYNES Attending Unavailable RAMON CARROLL Attending Unavailable HEMDAWN, JOHN Townsend Attending Unavailable HEMJOHN SEYMOUR Attending Unavailable HEMDAWN, JOHN Townsend Attending Unavailable Encounters Encounter Date Encounter Type Care Provider Facility Start: 09-02-2023 End: 09-02-2023 ambulatory JOHN Kristian RANDY Not Available Start: 08-30-2023 End: 08-30-2023 ambulatory [facility] Work Phone: Start: 08-30-2023 End: 08-30-2023 Patient encounter procedure [facility] Work Phone: Start: 04-02-2023 End: 04-02-2023 ambulatory RAMON CARROLL Not Available Start: 03-27-2023 End: 03-27-2023 ambulatory Cathy Bella Other [employer] Other Start: 03-27-2023 Office outpatient visit 25 minutes Cathy Bella [facility] Start: 03-17-2023 End: 03-17-2023 ambulatory VIRGIL [facility] Start: 03-06-2023 End: 03-06-2023 ambulatory JOHN PADILLA Not Available Start: 02-12-2023 End: 02-12-2023 ambulatory JOHN PADILLA Not Available Start: 09-21-2022 End: 09-21-2022 ambulatory Martha Guevara Other [employer] Other Start: 09-21-2022 Office outpatient visit 15 minutes Martha Guevara [facility] Start: 09-17-2022 End: 09-17-2022 ambulatory VIRGIL [facility] Start: 08-12-2022 End: 08-13-[address] DOE BRIDGES Facility: Start: 07-23-2022 End: 07-24-[address] RAMON [...] 01-12-2022 End: 01-12-2022 ambulatory Cathy Bella Other [employer] Other Start: 01-12-2022 Office outpatient visit 15 minutes Cathy Shayne [facility] Start: 01-07-2022 End: 01-07-2022 ambulatory ISATU GUAMAN . Facility:[facility] Start: 01-03-2022 End: 01-04-[address] VIRGIL SWIFT Facility:[facility] Start: 12-28-2021 End: 12-28-2021 ambulatory Martha Guevara Other [employer] Other Start: 12-28-2021 Office outpatient visit 15 minutes Marthajd Guevara [facility] Start: 12-25-2021 End: 12-25-2021 ambulatory Cathy Bella Other [employer] Other Start: 12-25-2021 Office outpatient visit 25 minutes Cathy Shayne [facility] Start: 12-05-2021 End: 12-06-[address] DOCTOR CERNA Facility:[facility] Start: 11-07-2021 End: 11-08-[address] DOCTOR CERNA Facility:[facility] Start: 10-27-2021 End: 10-27-2021 ambulatory Cathy Bella Other [employer] Other Start: 10-27-2021 Office outpatient visit 15 minutes Cathy Bella [facility] Start: 10-15-2021 End: 10-16-[address] DOCTOR MISC Facility:[facility] Start: 10-08-2021 End: 10-09-[address] DOCTOR MISC Facility:[facility] Start: 09-10-2021 End: 09-11-[address] DOCTOR MISC Facility:[facility] Start: 08-14-2021 End: 08-14-2021 ambulatory Martha Guevara Other [employer] Other Start: 08-14-2021 Office outpatient visit 15 minutes Martha Paola [facility] Start: 12-31-2017 End: 01-01-2018 Patient encounter VIRGIL HAYNES Facility:[facility] Start: 12-25-2017 End: 12-26-2017 Patient encounter ROSALINDA ROSENBAUM Facility:[facility] Start: 10-30-2017 End: 10-31-2017 Patient encounter ROSALINDA ROSENBAUM Facility:[facility] Start: 10-23-2017 End: 10-24-2017 Patient encounter ROSALINDA ROSENBAUM Facility:[facility] Start: 09-25-2017 End: 09-26-2017 Patient encounter ROSALINDA ROSENBAUM Facility:[facility] Start: 08-26-2017 End: 08-27-2017 Patient encounter ROSALINDA ROSENBAUM Facility:[facility] Start: 07-23-2017 End: 07-24-2017 Patient encounter ROSALINDA ROSENBAUM Facility:[facility] Start: 06-20-2017 End: 06-21-2017 Patient encounter ROSALINDA ROSENBAUM Facility:[facility] Start: 05-27-2017 End: 05-28-2017 Patient encounter ROSALINDA ROSENBAUM Facility:[facility] Start: 04-29-2017 End: 04-30-2017 Patient encounter ROSALINDA ROSENBAUM Facility:[facility] Start: 03-27-2017 End: 03-28-2017 Patient encounter ROSALINDA ROSENBAUM Facility:[facility] Start: 02-26-2017 End: 02-27-2017 Patient encounter DOE BRIDGES Facility:[facility] Immunizations Immunization Date Immunization Notes Care Provider Fa kushal 03-16-2009 influenza virus vaccine, split virus (incl. purified surface antigen) Martha Guevara Other [employer] Other 03-16-2009 influenza virus vaccine, unspecified formulation [facility] Medications Current Medications Medication Drug Class(es) Dates Sig (Normalized) Sig (Original) [id number] 200 actuat albuterol 0.09 mg/actuat metered dose inhaler (1 source) beta2-Adrenergic Agonist Start: 12-28-2021 take 2 puff(s) by inhalation four times daily as needed Albuterol Sulfate HFA 108 (90 Base) MCG/ACT 2 puffs Inhalation 4 times a day prn Nov, Active amLODIPine 5 mg oral tablet (10 sources) Dihydropyridine Calcium Channel Eleonora Start: 08-30-2023 take 5 mg by mouth once daily Amlodipine Active 5 MG PO Daily August 30, 2023 12:00am amLODIPine Besyl ate Active atorvastatin 20 mg oral tablet (1 source) HMG-CoA Reductase Inhibitor Start: 08-30-2023 take 20 mg by mouth once daily at bedtime Atorvastatin Active 20 MG PO Daily at bedtime August 30, 2023 12:00am Calcium (8 sources) Phosphate Binder, Calcium Calcium 600 600 MG Orally once a day for 30 day(s) Active calcium carbonate 1500 mg oral tablet (2 sources) Start: 08-30-2023 take 600 mg by mouth once daily Calcium Carbonate Active 600 MG PO Daily August 30, 2023 12:00am Calcium 600 600 MG Orally once a day for 30 day(s) Active cetirizine hydrochloride 10 mg oral tablet (1 source) Histamine-1 Receptor Antagonist Start: 10-27-2021 take 1 tablet by mouth once daily Cetirizine HCl 10 MG 1 tablet Orally Once a day for 14 days Sep, Active cholecalciferol 0.125 mg oral tablet (1 source) Vitamin D Start: 08-30-2023 take 1 tablet by mouth once daily Cholecalciferol (Vitamin D3) (Vitamin D3) 125 mcg (5,000 unit) tablet Active 125 MCG PO Daily August 30, 2023 12:00am ciprofloxacin 500 mg oral tablet (3 sources) Quinolone Antimicrobial Start: 08-14-2021 take 1 tablet by mouth every twelve hours Cipro 500 MG 1 tablet Orally every 12 hrs for 5 day(s) July, Active dextromethorphan hydrobromide 1.5 mg/ml / pyrilamine maleate 1.5 mg/ml oral solution (1 source) Uncompetitive C-xyvdqv-E-asparta te Receptor Antagonist, Sigma-1 Agonist Start: 03-27-2023 take 10 mL by mouth every eight hours Minerva DM 7.5-7.5 MG/5ML 10 mL Orally every 8 hours for 5 days Feb, Active ergocalciferol 1.25 mg oral capsule (9 sources) Provitamin D2 Compound Start: 06-27-2011 take 1 capsule by mouth every week Vitamin D (Ergocalciferol) 05751 UNIT 1 capsule Orally Once a Week for 90 days May, Active Start: 06-27-2011 everolimus (6 sources) Kinase Inhibitor, mTOR Inhibitor Immunosuppressant Zortress Active ferrous fumarate 325 mg oral tablet (1 source) Start: take 325 mg by mouth once daily Ferrous Fumarate Active 325 MG PO Daily August 30, 2023 12:00am ferrous sulfate 325 mg oral tablet (9 [...] capsule Orally Once a day Active Magnesium (1 source) Start: 08-30-2023 take 200 mg by mouth once daily Magnesium Active 200 MG PO Daily August 30, 2023 12:00am Magnesium Oxide (9 sources) Magnesium Oxide Active [...] directed Orally 1 for 90 days Active Multivitamin (One Daily Multivitamin) tablet (1 source) Start: 08-30-2023 take 1 tablet by mouth once daily Multivitamin (One Daily Multivitamin) tablet Active 1 TAB PO Daily August 30, 2023 12:00am MYCOPHENOLATE (1 source) Start: 08-30-2023 Mycophenolate Sodium Active MG PO August 30, 2023 12:00am Nystatin (1 source) Polyene Antifungal Start: 08-30-2023 take 1 mL by mouth four times daily Nystatin Active 5 ML PO Four times daily 200 10 August 30, 2023 12:00am swish and swallow [place] 7-Uaj-Urz-Fish Oil (Fish Oil) 1,000 mg (120 mg-180 mg) capsule (1 source) Start: 08-30-2023 take 1 capsule by mouth once daily [place] 0-Rff-Hzy-Fish Oil (Fish Oil) 1,000 mg (120 mg-180 mg) capsule Active 1 CAP PO Daily August 30, 2023 12:00am PARoxetine hydrochloride 20 mg oral tablet (1 source) Serotonin Reuptake Inhibitor Start: 08-30-2023 Paroxetine Hcl Active MG PO August 30, 2023 12:00am phenazopyridine hydrochloride 200 mg oral tablet (3 sources) Start: 08-14-2021 take 1 tablet by mouth every eight hours Pyridium 200 MG 1 tablet after meals Orally Three times a day for 2 day(s) July, Active Potassium (9 sources) take 1 tablet by mouth once joselito y Potassium 610 MG 1 tablet Orally Once a day Active potassium gluconate 2.5 meq oral tablet (1 source) Start: 08-30-2023 take 600 mg by mouth once daily Potassium Gluconate Active 600 MG PO Daily August 30, 2023 12:00am spironolactone 25 mg oral tablet (10 sources) Aldosterone Antagonist Start: 08-30-2023 take 25 mg by mouth once daily Spironolactone Active 25 MG PO Daily August 30, 2023 12:00am Spironolactone A ctive tacrolimus 0.5 mg oral capsule (10 sources) Calcineurin Inhibitor Immunosuppressant Start: 08-30-2023 take 0.5 mg by mouth twice daily Tacrolimus Active 0.5 MG PO Twice daily August 30, 2023 12:00am Tacrolimus Activ e triamcinolone acetonide 1 mg/ml [...] a day for 30 day(s) Active vitamin B12 (3 sources) Vitamin B12 Start: 08-30-2023 take 1 tablet by mouth once daily Cyanocobalamin (Vitamin B-12) Active 1 TAB PO Daily August 30, 2023 12:00am FreeTextSi tablet Orally Once a day; Note: Source Status: Taking; Provider: Shayne Morgan ( ) take 1 tablet by tremaine th every twenty-four hours Vitamin B-12 500 MCG 1 tablet Orally Once a day for 30 day(s) Active take 1 tablet by tremaine th every twenty-four hours Completed/Discontinued Medications Medication Drug Class(es) Dates [...] Start: 12-25-2021 take 1 capsule by mo ut every eight hours Tessalon Perles 100 MG 1 capsule as needed Orally Three times a day for 7 days Nov, Active predniSONE 20 mg oral tablet (3 sources) Start: 09-21-2022 take 1 tablet by mouth every twelve hours predniSONE 20 MG 1 tablet Orally bid for 5 day(s) Aug, Not-Taking/PRN Start: 12-28-2021 take 1 tablet by tremaine th every twelve hours predniSONE 20 MG 1 tablet Orally 2 times a day for 5 day(s) Nov, Active Payers Date Payer Category Payer [facility] [id number] 1959 Self-pay 1959 Unknown [id number] 1955 Unknown [id number] 2.16.8 40.1.771960.3.579.2.647 1955 Unknown [id number] 2.16.8 40.1.167055.3.579.2.647 1955 Unknown [id number] 2.16.8 40.1.818104.3.579.2.647 1955 Unknown [id number] 2.16.8 40.1.323534.3.579.2.647 1955 Unknown [id number] 2.16.8 40.1.332286.3.579.2.647 1955 Unknown [id number] 2.16.8 40.1.226388.3.579.2.647 1955 Unknown [id number] 2.16.8 40.1.789991.3.579.2.647 1955 Unknown [id number] 2.16.8 40.1.035369.3.579.2.647 1955 Unknown [id number] 2.16.8 40.1.961211.3.579.2.647 1955 Unknown [id number] 2.16.8 40.1.733931.3.579.2.647 1955 Unknown [id number] 2.16.8 40.1.485317.3.579.2.647 1955 Unknown [id number] 2.16.8 40.1.052379.3.579.2.647 1956 Unknown [id number] 2.16.84 0.1.165319.3.579.2.593 1957 Unknown [id number] 2.16.84 0.1.917093.3.579.2.593 1955 Unknown [id number] 2.16.84 0.1.998753.3.579.2.593 1955 Unknown [id number] 2.16.84 0.1.908831.3.579.2.593 1955 Unknown [id number] 2.16.84 0.1.447391.3.579.2.593 1956 Unknown [id number] 2.16.84 0.1.462449.3.579.2.593 1955 Unknown [id number] 2.16.84 0.1.905688.3.579.2.593 1956 Unknown [id number] 2.16.84 0.1.704146.3.579.2.593 1955 Unknown [id number] 2.16.84 0.1.200877.3.579.2.593 1956 Unknown [id number] 2.16.84 0.1.411280.3.579.2.593 1956 Unknown [id number] 2.16.84 0.1.595368.3.579.2.593 1956 Unknown [id number] 2.16.84 0.1.002906.3.579.2.593 1956 Unknown [id number] 2.16.84 0.1.385038.3.579.2.593 1956 Unknown [id number] 2.16.84 0.1.867752.3.579.2.593 1956 Unknown [id number] 2.16.84 0.1.129742.3.579.2.593 1956 Unknown [id number] 2.16.84 0.1.787081.3.579.2.1259 1956 Unknown [id number] 2.16.840 .1.934891.3.579.2.1259 1955 Unknown [id number] 2.16.840 .1.002775.3.579.2.1259 1956 Unknown [id number] 2.16.840 .1.505380.3.579.2.1259 Unknown [id number] 2.16.84 0.1.499589.3.579.2.593 Unknown Amy BC/BS [id number] Active Problems Problem Classification Problem Date [...] oral mucosa Episodic Disorders of lipid metabolism (2 sources) Hyperlipidemia, unspecified; Translations: [Hypercholesterolemia] Onset: 2 08-30-2023 Chronic Essential hypertension (5 sources) Hypertensive disorder; Translations: [HTN] Onset: 2 08-30-2023 Chronic Fluid and electrolyte disorders (3 sources) Hyperosmolality and or hypernatremia; Translations: [Hyperosmolality and/or hypernatremia] Episodic Genitourinary congenital anomalies (4 sources) Multiple congenital cysts of kidney; Translations: [Polycystic kidney, unspecified type] 08-30-2023 Chronic Immunizations and screening for infectious disease (6 sources) Contact with and (suspected) exposure to other viral communicable diseases; Translations: [Contact with and (suspected) exposure to other viral communicable diseases] Episodic Mycoses (2 sources) Candidiasis of mouth; Translations: [Candidal stomatitis] 08-30-2023 Episodic Other aftercare (8 sources) Encounter for [...] source) Dysphonia Episodic Other upper respiratory infections (10 sources) Acute upper respiratory infection, unspecified; Translations: [...] 03-27-2017 Episodic Other aftercare (2 sources) Other halfway (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 therapy; Translations: [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 (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) DRUG THERAPY] Onset: 02-26-2017 Episodic Other skin disorders (1 source) Rash and other nonspecific skin eruption Onset: 10-27-2021 Resolved: 10-27-2021 Episodic Unclassified (1 source) COUGH, UNSPECIFIED; Translations: [COUGH, UNSPECIFIED] Onset: 01-03-2022 Unclassified (1 source) Contact with and (suspected) exposure to covid-19 Z20.822 Urinary tract infections (3 sources) Urinary tract infection, site not specified Onset: 08-14-2021 Resolved: 08-14-2021 Episodic Procedures Date Procedure Procedure Detail Performing Clinician Start: 08-30-2023 Quick Strep (POC) Start: 08-14-2021 Piperacillin/tazobactam Martha Guevara Other Results Test Name Value Interpretation Reference Range Facility No Panel InformationOrdered By: Lindsay Soria on 08-30-2023 Quick Strep (POC) [facility] Documentationon 08-26-2023 Documentation [id number] Tanika Grimm 1955 F Date Provider Department [place] 08/26/2023 750ANEL ALLEN TXP None No family history on file [facility] Documentationon 05-19-2023 Documentation [id number] Tanika Grimm 1955 F Date Provider Department [place] 05/19/2023 ANEL HELLER TXP None No family history on file [facility] COVID/FLU/RSV RT-PCRon 03-27 SARS-CoV-2 (COVID-19) RNA MURALI+probe Ql (Unsp spec) Negative [facility] [employer] Other COVID/FLU/RSV RT-PCR Negative [facility] [employer] Other Quick Strepon 03-27-2023 S. pyogenes Org specific cx Ql (Throat) Negative [employer] [facility] [employer] Other Quick Strep [facility] [employer] Other 29on 03-17-2023 29 Addended by: FLAKITA LAGOS on: 03/17/2023 11:44 AM Modules accepted: Orders Normal [facility] Follow-Upon 03-17-2023 Follow-Up [id number] Tanika Grimm 1955 F Date Provider Department Center 03/17/2023 VIRGIL HAYES TXP None No family history on file Level of Service:27335 SC OFFICE/OUTPATIENT ESTABLISHED LOW MDM 20 MIN Reason for Visit and Comments: Kidney Follow-up [[id number]] - Patient would like to know if Virgil would prescribe depression medication. [facility] 36on 01-31-2023 36 Transplant Pharmacis t [...] need for taper. The patient's verbalized understanding. Office Equipment Mechanic added medication to med list. The patient's stated patient will be getting a DEXA scan and recommended to not have calcium 3 days before. Reviewed medication list for any products containing calcium - no medications found. No other questions or concerns at this time. [facility] Telephoneon 01-31-2023 Telephone [id number] Tanika Grimm 1955 F Date Provider Department Center 01/31/2023 3915-JAH PAGE TXP None No family history on file Reason for Visit and Comments: Transplant Pharmacist - Drug Information [[id number]] [facility] Documentationon 10-09-2022 Documentation [id number] Tanika Grimm 1955 F Date Provider Department Center 10/09/2022 3193-KATY CRUZ TXP None No family history on file [facility] 29on 09-17-2022 29 Addended by: FERNANDA CAREY on: 09/17/2022 12:16 PM Modules accepted: Orders Normal [facility] CREATININE, URINE, RANDOMon 09-17-2022 Creatinine (U) [Mass/Vol] 252.0 mg/dL Normal 26-299 [facility] Comment on above: Performed By: #### L [id number] ####[facility] ([facility]AKER)[address] [place] [address] Follow-Upon 09-17-2022 Follow-Up [id number] Tanika Grimm Harika 1955 F Date Provider Department Center 09/17/2022 124-MIKEVIRGIL PIEDAD None No family history on file Level of Service:81201 SC OFFICE/OUTPATIENT ESTABLISHED LOW MDM 20-29 MIN Reason for Visit and Comments: Kidney Follow-up [] - Patient has no new concerns Normal [facility] PROTEIN, URINE, RANDOMon Protein (U) [Mass/Vol] 29.5 mg/dL Normal [facility] Comment on above: Result Comment: Ther e are no established reference values for random urine specimens. Performed By: #### L [id number] ####[facility] (BEAKER)[address] [place] [address] BILIRUBIN CONJUGATED (DIRECT )on 08-12-2022 BILI, CONJUGATED 0.1 mg/dL Normal 0.0-0.2 [facility] Comment on above: Performed By: #### D DAVIDSON, MG, PHOS, CMP, LIPID, URIC #### [facility] [address] [address] [address] Sarmad Patino GLYCOHEMOGLOBIN A1Con 2022 ADA RECOMMENDATION SEE BELOW Normal [facility] Comment on above: Result Comment: ADA RECOMMENDED LIMIT 4.0 - 6.0 ADA THERAPEUTIC TARGET < 7.0 ACTION SUGGESTED > 7.0 Performed By: #### D DAVIDSON, MG, PHOS, CMP, LIPID, URIC #### [facility] [address] [address] [address] Sarmad Patino Glucose [Mass/Vol] 108 mg/dL Normal [facility] Comment on above: Performed By: #### D DAVIDSON, MG, PHOS, CMP, LIPID, URIC #### [facility] [address] [address] [address] Sarmad Patino HbA1c (Bld) [Mass fraction] 5.4 % Normal 4.5-6.2 [facility] Comment on above: Performed By: #### D DAVIDSON, MG, PHOS, CMP, LIPID, URIC #### [facility] [address] [address] [address] Sarmad Patino MAGNESIUMon 08-12-2022 Magnesium [Mass/Vol] 1.7 mg/dL Critically low 1.8-2.4 [facility] Comment on above: Performed By: #### D DAVIDSON, MG, PHOS, CMP, LIPID, URIC #### [facility] [address] [place] [address] Dr. Sarmad Patino PHOSPHORUSon 08-12-2022 Phosphate [Mass/Vol] 3.9 mg/dL Normal 2.6-4.7 [facility] Comment on above: Performed By: #### U MAXI, LIPID, MG, CMP, DBIL, PHOS #### [facility] [address] [place] [address] Dr. Sarmad Patino PROF 14(COMP METB)on 023 Albumin [Mass/Vol] 3.9 g/dL Normal 3.4-5.0 [facility] Comment on above: Performed By: #### D DAVIDSON, MG, PHOS, CMP, LIPID, URIC #### [facility] [address] [place] [address] Dr. Sarmad Patino Albumin/Globulin [Mass ratio] 1.2 {ratio} Normal [facility] Comment on above: Performed By: #### D DAVIDSON, MG, PHOS, CMP, LIPID, URIC #### [facility] [address] [place] [address] Dr. Sarmad Patino ALP [Catalytic activity/Vol] 126 U/L Critically high 46-116 [facility] Comment on above: Performed By: #### D DAVIDSON, MG, PHOS, CMP, LIPID, URIC #### [facility] [address] [place] [address] Dr. Sarmad Patino ALT [Catalytic activity/Vol] 18 U/L Normal 14-59 [facility] Comment on above: Performed By: #### D DAVIDSON, MG, PHOS, CMP, LIPID, URIC #### [facility] [address] [place] [address] Dr. Sarmad Patino Anion gap [Moles/Vol] 10.4 mmol/L Normal [facility] Comment on above: Performed By: #### D DAVIDSON, MG, PHOS, CMP, LIPID, URIC #### [facility] [address] [address] [address] Sarmad Patino AST [Catalytic activity/Vol] 14 U/L Critically low 15-37 [facility] Comment on above: Performed By: #### D DAVIDSON, MG, PHOS, CMP, LIPID, URIC #### [facility] [facility] [address] [address] [address] Sarmad Patino Bilirubin [Mass/Vol] 0.7 mg/dL Normal 0.2-1.0 [facility] Comment on above: Performed By: #### D DAVIDSON, MG, PHOS, CMP, LIPID, URIC #### [facility] [address] [address] [address] Sarmad Patino Calcium [Mass/Vol] 9.8 mg/dL Normal 8.5-10.1 [facility] Comment on above: Performed By: #### D DAVIDSON, MG, PHOS, CMP, LIPID, URIC #### [facility] [address] [address] [address] Sarmad Patino Chloride [Moles/Vol] 106 mmol/L Normal 98-107 [facility] Comment on above: Performed By: #### D DAVIDSON, MG, PHOS, CMP, LIPID, URIC #### [facility] [address] [address] [address] Sarmad Patino CO2 [Moles/Vol] 32.1 mmol/L Critically high 21.0-32.0 [facility] Comment on above: Performed By: #### D DAVIDSON, MG, PHOS, CMP, LIPID, URIC #### [facility] [address] [address] [address] Sarmad Patino Creatinine [Mass/Vol] 0.92 mg/dL Normal 0.55-1.02 [facility] Comment on above: Performed By: #### D DAVIDSON, MG, PHOS, CMP, LIPID, URIC #### [facility] [address] [address] [address] Sarmad Patino EGFR-AF MALAWIAN >60 Normal >=60 [facility] Comment on above: Performed By: #### D DAVIDSON, MG, PHOS, CMP, LIPID, URIC #### [facility] [address] [address] [address] Sarmad Patino EGFR-NON AF MALAWIAN >60 Normal >=60 [facility] Comment on above: Performed By: #### D DAVIDSON, MG, PHOS, CMP, LIPID, URIC #### [facility] [address] [address] [address] Sarmad Patino Globulin (S) [Mass/Vol] 3.3 g/dL Normal [facility] Comment on above: Performed By: #### D DAVIDSON, MG, PHOS, CMP, LIPID, URIC #### [facility] [address] [address] [address] Sarmad Patino Glucose [Mass/Vol] 102 mg/dL Normal 74-[address] [facility] Comment on above: Performed By: #### D DAVIDSON, MG, PHOS, CMP, LIPID, URIC #### [facility] [address] [address] [address] Sarmad Patino Potassium [Moles/Vol] 4.5 mmol/L Normal 3.5-5.1 [facility] Comment on above: Performed By: #### D DAVIDSON, MG, PHOS, CMP, LIPID, URIC #### [facility] [address] [address] [address] Sarmad Patino Protein [Mass/Vol] 7.2 g/dL Normal 6.4-8.[address] [facility] Comment on above: Performed By: #### D DAVIDSON, MG, PHOS, CMP, LIPID, URIC #### [facility] [address] [address] [address] Sarmad Patino Sodium [Moles/Vol] 144 mmol/L Normal 136-[address] [facility] Comment on above: Performed By: #### D DAVIDSON, MG, PHOS, CMP, LIPID, URIC #### [facility] [address] [address] [address] Sarmad Patino Urea nitrogen [Mass/Vol] 20.0 mg/dL Critically high 7.0-18.0 [facility] Comment on above: Performed By: #### D DAVIDSON, MG, PHOS, CMP, LIPID, URIC #### [facility] [address] [address] [address] Sarmad Patino Urea nitrogen/Creatinine [Mass ratio] 21.7 mg/mg Normal [facility] Comment on above: Performed By: #### D DAVIDSON, MG, PHOS, CMP, LIPID, URIC #### [facility] [address] [address] [address] Sarmad Patino URIC ACID SERUMon 08-12-2022 Urate [Mass/Vol] 5.2 mg/dL Normal 2.6-6.0 [facility] Comment on above: Performed By: #### D DAVIDSON, MG, PHOS, CMP, LIPID, URIC #### [facility] [address] [address] [address] Sarmad Patino MG MAMM SCREEN 3D DAVIDSON CADon 07-23-2022 MG MAMM SCREEN 3D DAVIDSON CAD Patient: TANIKA GRIMM Exam Date: 07/23/2022 : 1955 Gender:F Ordering : DR RAMON CARROLL M.D. Admission #: [id number] Family : Order #: [id number] CLICK HERE TO VIEW EXAM RADIOLOGY REPORT [...] Treatments None Family Cancers None LOCATION: [facility] BREAST COMPOSITION: Extremely dense, which lowers the [...] PALPABLE LUMP SHOULD BE BIOPSIED. Dictated by: Artemio Bernard M.D. on 07/23/2022 at 16:36 Approved by: Artemio Bernard M.D. on 07/23/2022 at 16:59 Normal [facility] FK506 (TACROLIMUS) WHOLE BLO ODon 07-10-2022 Tacrolimus (FK506), Blood 3.8 ng/mL Normal 2.0-20.0 [facility] Comment on above: Result Comment: Trou gh (immediately following transplant) 15.0 . Trough (steady state, 2 weeks or more after transplant): 3.0 - 8.0 . Performed by LC-MS/MS technology. Performed By: #### D DAVIDSON, MG, PHOS, CMP, LIPID, URIC #### [facility] [address] [place] [address] Dr. Sarmad Patino BILIRUBIN CONJUGATED (DIRECT )on 07-08-2022 BILI, CONJUGATED 0.1 mg/dL Normal 0.0-0.2 [facility] Comment on above: Performed By: #### U MAXI, LIPID, MG, CMP, DBIL, PHOS #### [facility] [address] [place] [address] Dr. Sarmad Patino GLYCOHEMOGLOBIN A1Con 2022 ADA RECOMMENDATION SEE BELOW Normal [facility] Comment on above: Result Comment: ADA RECOMMENDED LIMIT 4.0 - 6.0 ADA THERAPEUTIC TARGET < 7.0 ACTION SUGGESTED > 7.0 Performed By: #### D DAVIDSON, MG, PHOS, CMP, LIPID, URIC #### [facility] [address] [address] [address] Sarmad Patino Glucose [Mass/Vol] 105 mg/dL Normal [facility] Comment on above: Performed By: #### D DAVIDSON, MG, PHOS, CMP, LIPID, URIC #### [facility] [address] [address] [address] Sarmad Patino HbA1c (Bld) [Mass fraction] 5.3 % Normal 4.5-6.2 [facility] Comment on above: Performed By: #### D DAVIDSON, MG, PHOS, CMP, LIPID, URIC #### [facility] [address] [place] [address] Dr. Sarmad Patino MAGNESIUMon 07-08-2022 Magnesium [Mass/Vol] 1.8 mg/dL Normal 1.8-2.4 [facility] Comment on above: Performed By: #### U MAXI, LIPID, MG, CMP, DBIL, PHOS #### [facility] [address] [address] [address] Sarmad Patino PHOSPHORUSon 07-08-2022 Phosphate [Mass/Vol] 3.8 mg/dL Normal 2.6-4.7 [facility] Comment on above: Performed By: #### U MAXI, LIPID, MG, CMP, DBIL, PHOS #### [facility] [address] [place] [address] Dr. Sarmad Patino PROF 14(COMP METB)on 023 Albumin [Mass/Vol] 3.7 g/dL Normal 3.4-5.0 [facility] Comment on above: Performed By: #### U MAXI, LIPID, MG, CMP, DBIL, PHOS #### [facility] [address] [place] [address] Dr. Sarmad Patino Albumin/Globulin [Mass ratio] 1.1 {ratio} Normal [facility] Comment on above: Performed By: #### U MAXI, LIPID, MG, CMP, DBIL, PHOS #### [facility] [address] [place] [address] Dr. Sarmad Patino ALP [Catalytic activity/Vol] 124 U/L Critically high 46-116 [facility] Comment on above: Performed By: #### U MAXI, LIPID, MG, CMP, DBIL, PHOS #### [facility] [address] [place] [address] Dr. Sarmad Patino ALT [Catalytic activity/Vol] 20 U/L Normal 14-59 [facility] Comment on above: Performed By: #### U MAXI, LIPID, MG, CMP, DBIL, PHOS #### [facility] [address] [place] [address] Dr. Sarmad Patino Anion gap [Moles/Vol] 11.5 mmol/L Normal [facility] Comment on above: Performed By: #### U MAXI, LIPID, MG, CMP, DBIL, PHOS #### [facility] [address] [address] [address] Sarmad Patino AST [Catalytic activity/Vol] 12 U/L Critically low 15-37 [facility] Comment on above: Performed By: #### U MAXI, LIPID, MG, CMP, DBIL, PHOS #### [facility] [address] [address] [address] Sarmad Patino Bilirubin [Mass/Vol] 0.5 mg/dL Normal 0.2-1.0 [facility] Comment on above: Performed By: #### U MAXI, LIPID, MG, CMP, DBIL, PHOS #### [facility] [address] [address] [address] Sarmad Patino Calcium [Mass/Vol] 9.6 mg/dL Normal 8.5-10.1 [facility] Comment on above: Performed By: #### U MAXI, LIPID, MG, CMP, DBIL, PHOS #### [facility] [address] [place] [address] Dr. Sarmad Patino Chloride [Moles/Vol] 106 mmol/L Normal 98-107 [facility] Comment on above: Performed By: #### U MAXI, LIPID, MG, CMP, DBIL, PHOS #### [facility] [address] [address] [address] Sarmad Patino CO2 [Moles/Vol] 29.7 mmol/L Normal 21.0-32.[address] [facility] Comment on above: Performed By: #### U MAXI, LIPID, MG, CMP, DBIL, PHOS #### [facility] [address] [place] [address] Dr. Sarmad Patino Creatinine [Mass/Vol] 0.77 mg/dL Normal 0.55-1.02 [facility] Comment on above: Performed By: #### U MAXI, LIPID, MG, CMP, DBIL, PHOS #### [facility] [address] [address] [address] Sarmad Patino EGFR-AF MALAWIAN >60 Normal >=[address] [facility] Comment on above: Performed By: #### U MAXI, LIPID, MG, CMP, DBIL, PHOS #### [facility] [address] [address] [address] Sarmad Patino EGFR-NON AF MALAWIAN >60 Normal >=60 [facility] Comment on above: Performed By: #### U MAXI, LIPID, MG, CMP, DBIL, PHOS #### [facility] [address] [address] [address] Sarmad Patino Globulin (S) [Mass/Vol] 3.4 g/dL Normal [facility] Comment on above: Performed By: #### U MAXI, LIPID, MG, CMP, DBIL, PHOS #### [facility] [address] [place] [address] Dr. Sarmad Patino Glucose [Mass/Vol] 97 mg/dL Normal 74-[address] [facility] Comment on above: Performed By: #### U MAXI, LIPID, MG, CMP, DBIL, PHOS #### [facility] [address] [place] [address] Dr. Sarmad Patino Potassium [Moles/Vol] 4.2 mmol/L Normal 3.5-5.1 [facility] Comment on above: Performed By: #### U MAXI, LIPID, MG, CMP, DBIL, PHOS #### [facility] [address] [place] [address] Dr. Sarmad Patino Protein [Mass/Vol] 7.1 g/dL Normal 6.4-8.[address] [facility] Comment on above: Performed By: #### U MAXI, LIPID, MG, CMP, DBIL, PHOS #### [facility] [address] [address] [address] Sarmad Patino Sodium [Moles/Vol] 143 mmol/L Normal 136-[address] [facility] Comment on above: Performed By: #### U MAXI, LIPID, MG, CMP, DBIL, PHOS #### [facility] [address] [place] [address] Dr. Sarmad Patino Urea nitrogen [Mass/Vol] 26.0 mg/dL Critically high 7.0-18.0 [facility] Comment on above: Performed By: #### U MAXI, LIPID, MG, CMP, DBIL, PHOS #### [facility] [address] [place] [address] Dr. Sarmad Patino Urea nitrogen/Creatinine [Mass ratio] 33.8 mg/mg Normal [facility] Comment on above: Performed By: #### U MAXI, LIPID, MG, CMP, DBIL, PHOS #### [facility] [address] [place] [address] Dr. Sarmad Patino URIC ACID SERUMon 07-08-2022 Urate [Mass/Vol] 4.7 mg/dL Normal 2.6-6.0 [facility] Comment on above: Performed By: #### U MAXI, LIPID, MG, CMP, DBIL, PHOS #### [facility] [address] [place] [address] Dr. Sarmad Patino FK506 (TACROLIMUS) WHOLE BLO ODon 06-13-2022 Tacrolimus (FK506), Blood 3.0 ng/mL Normal 2.0-20.0 [facility] Comment on above: Result Comment: Trou gh (immediately following transplant) 15.0 . Trough (steady state, 2 weeks or more after transplant): 3.0 - 8.0 . Performed by LC-MS/MS technology. Performed By: #### D DAVIDSON, MG, PHOS, CMP, LIPID, URIC #### [facility] [address] [place] [address] Dr. Sarmad Patino BK VIRUS PCR QUANTon 023 BKV DNA QUANT PCR PLASMA Negative Normal Negative [facility] Comment on above: Result Comment: No B K DNA detected. . The linear range of the assay is 22 - 100,000,000 IU/mL. Performed By: #### B KVIRUS #### [facility] [address] [place] [address] Dr. Sarmad Patino Log10 BKV DNA Plasma Normal [facility] Comment on above: Performed By: #### B KVIRUS #### [facility] [address] [place] [address] Dr. Sarmad Patino BILIRUBIN CONJUGATED (DIRECT )on 06-10-2022 BILI, CONJUGATED 0.1 mg/dL Normal 0.0-0.[address] [facility] Comment on above: Performed By: #### U MAXI, LIPID, MG, CMP, DBIL, PHOS #### [facility] [address] [address] [address] Sarmad Patino GLYCOHEMOGLOBIN A1Con 2022 ADA RECOMMENDATION SEE BELOW Normal [facility] Comment on above: Result Comment: ADA RECOMMENDED LIMIT 4.0 - 6.0 ADA THERAPEUTIC TARGET < 7.0 ACTION SUGGESTED > 7.0 Performed By: #### D DAVIDSON, MG, PHOS, CMP, LIPID, URIC #### [facility] [address] [address] [address] Sarmad Patino Glucose [Mass/Vol] 114 mg/dL Normal [facility] Comment on above: Performed By: #### D DAVIDSON, MG, PHOS, CMP, LIPID, URIC #### [facility] [address] [place] [address] Dr. Sarmad Patino HbA1c (Bld) [Mass fraction] 5.6 % Normal 4.5-6.2 [facility] Comment on above: Performed By: #### D DAVIDSON, MG, PHOS, CMP, LIPID, URIC #### [facility] [address] [address] [address] Sarmad Patino MAGNESIUMon 06-10-2022 Magnesium [Mass/Vol] 1.6 mg/dL Critically low 1.8-2.4 [facility] Comment on above: Performed By: #### U MAXI, LIPID, MG, CMP, DBIL, PHOS #### [facility] [address] [address] [address] Sarmad Patino PROF 14(COMP METB)on 023 Albumin [Mass/Vol] 3.7 g/dL Normal 3.4-5.[address] [facility] Comment on above: Performed By: #### U MAXI, LIPID, MG, CMP, DBIL, PHOS #### [facility] [address] [place] [address] Dr. Sarmad Patino Albumin/Globulin [Mass ratio] 1.1 {ratio} Normal [facility] Comment on above: Performed By: #### U MAXI, LIPID, MG, CMP, DBIL, PHOS #### [facility] [address] [address] [address] Sarmad Patino ALP [Catalytic activity/Vol] 142 U/L Critically high 46-116 [facility] Comment on above: Performed By: #### U MAXI, LIPID, MG, CMP, DBIL, PHOS #### [facility] [address] [address] [address] Sarmad Patino ALT [Catalytic activity/Vol] 29 U/L Normal 14-59 [facility] Comment on above: Performed By: #### U MAXI, LIPID, MG, CMP, DBIL, PHOS #### [facility] [address] [place] [address] Dr. Sarmad Patino Anion gap [Moles/Vol] 11.1 mmol/L Normal [facility] Comment on above: Performed By: #### U MAXI, LIPID, MG, CMP, DBIL, PHOS #### [facility] [address] [place] [address] Dr. Sarmad Patino AST [Catalytic activity/Vol] 19 U/L Normal 15-37 [facility] Comment on above: Performed By: #### U MAXI, LIPID, MG, CMP, DBIL, PHOS #### [facility] [address] [place] [address] Dr. Sarmad Patino Bilirubin [Mass/Vol] 0.6 mg/dL Normal 0.2-1.0 [facility] Comment on above: Performed By: #### U MAXI, LIPID, MG, CMP, DBIL, PHOS #### [facility] [address] [place] [address] Dr. Sarmad Patino Calcium [Mass/Vol] 9.8 mg/dL Normal 8.5-10.1 [facility] Comment on above: Performed By: #### U MAXI, LIPID, MG, CMP, DBIL, PHOS #### [facility] [address] [address] [address] Sarmad Patino Chloride [Moles/Vol] 103 mmol/L Normal 98-107 [facility] Comment on above: Performed By: #### U MAXI, LIPID, MG, CMP, DBIL, PHOS #### [facility] [address] [address] [address] Sarmad Patino CO2 [Moles/Vol] 30.7 mmol/L Normal 21.0-32.[address] [facility] Comment on above: Performed By: #### U MAXI, LIPID, MG, CMP, DBIL, PHOS #### [facility] [address] [address] [address] Sarmad Patino Creatinine [Mass/Vol] 0.79 mg/dL Normal 0.55-1.02 [facility] Comment on above: Performed By: #### U MAXI, LIPID, MG, CMP, DBIL, PHOS #### [facility] [address] [place] [address] Dr. Sarmad Patino EGFR-AF MALAWIAN >60 Normal >=[address] [facility] Comment on above: Performed By: #### U MAXI, LIPID, MG, CMP, DBIL, PHOS #### [facility] [address] [place] [address] Dr. Sarmad Patino EGFR-NON AF MALAWIAN >60 Normal >=60 [facility] Comment on above: Performed By: #### U MAXI, LIPID, MG, CMP, DBIL, PHOS #### [facility] [address] [place] [address] Dr. Sarmad Patino Globulin (S) [Mass/Vol] 3.4 g/dL Normal [facility] Comment on above: Performed By: #### U MAXI, LIPID, MG, CMP, DBIL, PHOS #### [facility] [address] [address] [address] Sarmad Patino Glucose [Mass/Vol] 94 mg/dL Normal 74-[address] [facility] Comment on above: Performed By: #### U MAXI, LIPID, MG, CMP, DBIL, PHOS #### [facility] [address] [place] [address] Dr. Sarmad Patino Potassium [Moles/Vol] 3.8 mmol/L Normal 3.5-5.1 [facility] Comment on above: Performed By: #### U MAXI, LIPID, MG, CMP, DBIL, PHOS #### [facility] [address] [address] [address] Sarmad Patino Protein [Mass/Vol] 7.1 g/dL Normal 6.4-8.[address] [facility] Comment on above: Performed By: #### U MAXI, LIPID, MG, CMP, DBIL, PHOS #### [facility] [address] [address] [address] Sarmad Patino Sodium [Moles/Vol] 141 mmol/L Normal 136-[address] [facility] Comment on above: Performed By: #### U MAXI, LIPID, MG, CMP, DBIL, PHOS #### [facility] [address] [place] [address] Dr. Sarmad Patino Urea nitrogen [Mass/Vol] 17.0 mg/dL Normal 7.0-18.0 [facility] Comment on above: Performed By: #### U MAXI, LIPID, MG, CMP, DBIL, PHOS #### [facility] [address] [place] [address] Dr. Sarmad Patino Urea nitrogen/Creatinine [Mass ratio] 21.5 mg/mg Normal [facility] Comment on above: Performed By: #### U MAXI, LIPID, MG, CMP, DBIL, PHOS #### [facility] [address] [place] [address] Dr. Sarmad Patino URIC ACID SERUMon 06-10-2022 Urate [Mass/Vol] 5.1 mg/dL Normal 2.6-6.0 [facility] Comment on above: Performed By: #### U MAXI, LIPID, MG, CMP, DBIL, PHOS #### [facility] [address] [place] [address] Dr. Sarmad Patino BK VIRUS PCR QUANTon 023 BKV DNA QUANT PCR PLASMA Negative Normal Negative [facility] Comment on above: Result Comment: No B K DNA detected. . The linear range of the assay is 22 - 100,000,000 IU/mL. Performed By: #### U MAXI, LIPID, MG, CMP, DBIL, PHOS #### [facility] [address] [address] [address] Sarmad Patino Log10 BKV DNA Plasma Normal [facility] Comment on above: Performed By: #### U MAXI, LIPID, MG, CMP, DBIL, PHOS #### [facility] [address] [address] [address] Sarmad Patino FK506 (TACROLIMUS) WHOLE BLO ODon 05-13-2022 Tacrolimus (FK506), Blood 4.1 ng/mL Normal 2.0-20.0 [facility] Comment on above: Result Comment: Trou gh (immediately following transplant) 15.0 . Trough (steady state, 2 weeks or more after transplant): 3.0 - 8.0 . Performed by LC-MS/MS technology. Performed By: #### U MAXI, LIPID, MG, CMP, DBIL, PHOS #### [facility] [address] [address] [address] Sarmad Patino BILIRUBIN CONJUGATED (DIRECT )on 05-10-2022 BILI, CONJUGATED 0.1 mg/dL Normal 0.0-0.2 [facility] Comment on above: Performed By: #### D DAVIDSON, MG, PHOS, CMP, LIPID, URIC #### [facility] [address] [address] [address] Sarmad Patino GLYCOHEMOGLOBIN A1Con 2022 ADA RECOMMENDATION SEE BELOW Normal [facility] Comment on above: Result Comment: ADA RECOMMENDED LIMIT 4.0 - 6.0 ADA THERAPEUTIC TARGET < 7.0 ACTION SUGGESTED > 7.0 Performed By: #### D DAVIDSON, MG, PHOS, CMP, LIPID, URIC #### [facility] [address] [address] [address] Sarmad Patino Glucose [Mass/Vol] 108 mg/dL Normal [facility] Comment on above: Performed By: #### D DAVIDSON, MG, PHOS, CMP, LIPID, URIC #### [facility] [address] [address] [address] Sarmad Patino HbA1c (Bld) [Mass fraction] 5.4 % Normal 4.5-6.2 [facility] Comment on above: Performed By: #### D DAVIDSON, MG, PHOS, CMP, LIPID, URIC #### [facility] [address] [place] [address] Dr. Sarmad Patino MAGNESIUMon 05-10-2022 Magnesium [Mass/Vol] 1.9 mg/dL Normal 1.8-2.4 [facility] Comment on above: Performed By: #### U MAXI, LIPID, MG, CMP, DBIL, PHOS #### [facility] [address] [place] [address] Dr. Sarmad Patino PROF 14(COMP METB)on 023 Albumin [Mass/Vol] 3.9 g/dL Normal 3.4-5.0 [facility] Comment on above: Performed By: #### D DAVIDSON, MG, PHOS, CMP, LIPID, URIC #### [facility] [address] [place] [address] Dr. Sarmad Patino Albumin/Globulin [Mass ratio] 1.2 {ratio} Normal [facility] Comment on above: Performed By: #### D DAVIDSON, MG, PHOS, CMP, LIPID, URIC #### [facility] [address] [place] [address] Dr. Sarmad Patino ALP [Catalytic activity/Vol] 114 U/L Normal 46-116 [facility] Comment on above: Performed By: #### D DAVIDSON, MG, PHOS, CMP, LIPID, URIC #### [facility] [address] [place] [address] Dr. Sarmad Patino ALT [Catalytic activity/Vol] 18 U/L Normal 14-59 [facility] Comment on above: Performed By: #### D DAVIDSON, MG, PHOS, CMP, LIPID, URIC #### [facility] [address] [place] [address] Dr. Sarmad Patino Anion gap [Moles/Vol] 15.9 mmol/L Normal [facility] Comment on above: Performed By: #### D DAVIDSON, MG, PHOS, CMP, LIPID, URIC #### [facility] [address] [place] [address] Dr. Sarmad Patino AST [Catalytic activity/Vol] 17 U/L Normal 15-37 [facility] Comment on above: Performed By: #### D DAVIDSON, MG, PHOS, CMP, LIPID, URIC #### [facility] [address] [place] [address] Dr. Sarmad Patino Bilirubin [Mass/Vol] 0.4 mg/dL Normal 0.2-1.0 [facility] Comment on above: Performed By: #### D DAVIDSON, MG, PHOS, CMP, LIPID, URIC #### [facility] [address] [place] [address] Dr. Sarmad Patino Calcium [Mass/Vol] 9.8 mg/dL Normal 8.5-10.1 [facility] Comment on above: Performed By: #### D DAVIDSON, MG, PHOS, CMP, LIPID, URIC #### [facility] [address] [place] [address] Dr. Sarmad Patino Chloride [Moles/Vol] 103 mmol/L Normal 98-107 [facility] Comment on above: Performed By: #### D DAVIDSON, MG, PHOS, CMP, LIPID, URIC #### [facility] [address] [place] [address] Dr. Sarmad Patino CO2 [Moles/Vol] 29.2 mmol/L Normal 21.0-32.[address] [facility] Comment on above: Performed By: #### D DAVIDSON, MG, PHOS, CMP, LIPID, URIC #### [facility] [address] [place] [address] Dr. Sarmad Patino Creatinine [Mass/Vol] 0.74 mg/dL Normal 0.55-1.02 [facility] Comment on above: Performed By: #### D DAVIDSON, MG, PHOS, CMP, LIPID, URIC #### [facility] [address] [place] [address] Dr. Sarmad Patino EGFR-AF MALAWIAN >60 Normal >=[address] [facility] Comment on above: Performed By: #### D DAVIDSON, MG, PHOS, CMP, LIPID, URIC #### [facility] [address] [place] [address] Dr. Sarmad Patino EGFR-NON AF MALAWIAN >60 Normal >=60 [facility] Comment on above: Performed By: #### D DAVIDSON, MG, PHOS, CMP, LIPID, URIC #### [facility] [address] [address] [address] Sarmad Patino Globulin (S) [Mass/Vol] 3.2 g/dL Normal [facility] Comment on above: Performed By: #### D DAVIDSON, MG, PHOS, CMP, LIPID, URIC #### [facility] [address] [place] [address] Dr. Sarmad Patino Glucose [Mass/Vol] 94 mg/dL Normal 74-[address] [facility] Comment on above: Performed By: #### D DAVIDSON, MG, PHOS, CMP, LIPID, URIC #### [facility] [address] [place] [address] Dr. Sarmad Patino Potassium [Moles/Vol] 4.1 mmol/L Normal 3.5-5.1 [facility] Comment on above: Performed By: #### D DAVIDSON, MG, PHOS, CMP, LIPID, URIC #### [facility] [address] [place] [address] Dr. Sarmad Patino Protein [Mass/Vol] 7.1 g/dL Normal 6.4-8.[address] [facility] Comment on above: Performed By: #### D DAVIDSON, MG, PHOS, CMP, LIPID, URIC #### [facility] [address] [place] [address] Dr. Sarmad Patino Sodium [Moles/Vol] 144 mmol/L Normal 136-[address] [facility] Comment on above: Performed By: #### D DAVIDSON, MG, PHOS, CMP, LIPID, URIC #### [facility] [address] [place] [address] Dr. Sarmad Patino Urea nitrogen [Mass/Vol] 18.0 mg/dL Normal 7.0-18.0 [facility] Comment on above: Performed By: #### D DAVIDSON, MG, PHOS, CMP, LIPID, URIC #### [facility] [address] [place] [address] Dr. Sarmad Patino Urea nitrogen/Creatinine [Mass ratio] 24.3 mg/mg Normal [facility] Comment on above: Performed By: #### D DAVIDSON, MG, PHOS, CMP, LIPID, URIC #### [facility] [address] [address] [address] Sarmad Patino URIC ACID SERUMon 05-10-2022 Urate [Mass/Vol] 5.1 mg/dL Normal 2.6-6.0 [facility] Comment on above: Performed By: #### U MAXI, LIPID, MG, CMP, DBIL, PHOS #### [facility] [address] [address] [address] Sarmad Patino MYCOPHENOLIC ACIDon 04-17-19 23 Mycophenolic Acid 1.2 ug/mL Normal 1.0-3.5 [facility] Comment on above: Performed By: #### D DAVIDSON, MG, PHOS, CMP, LIPID, URIC #### [facility] [address] [place] [address] Dr. Sarmad Patino Mycophenolic Acid Glucuronide 37 ug/mL Normal 15-125 [facility] Comment on above: Result Comment: [facility] 's Reference Range: 35-100 mcg/mL. Performed By: #### D DAVIDSON, MG, PHOS, CMP, LIPID, URIC #### [facility] [address] [place] [address] Dr. Sarmad Patino FK506 (TACROLIMUS) WHOLE BLO ODon 04-10-2022 Tacrolimus (FK506), Blood 4.2 ng/mL Normal 2.0-20.0 [facility] Comment on above: Result Comment: Trou gh (immediately following transplant) 15.0 . Trough (steady state, 2 weeks or more after transplant): 3.0 - 8.0 . Performed by LC-MS/MS technology. Performed By: #### D DAVIDSON, MG, PHOS, CMP, LIPID, URIC #### [facility] [address] [place] [address] Dr. Sarmad Patino BILIRUBIN CONJUGATED (DIRECT )on 04-08-2022 BILI, CONJUGATED 0.1 mg/dL Normal 0.0-0.[address] [facility] Comment on above: Performed By: #### U MAXI, LIPID, MG, CMP, DBIL, PHOS #### [facility] [address] [address] [address] Sarmad Patino CBC AUTO DIFFon 04-08-2022 BASO # 0.0 103/ul Normal 0.0-0.1 [facility] Comment on above: Performed By: #### D DAVIDSON, MG, PHOS, CMP, LIPID, URIC #### [facility] [address] [place] [address] Dr. Sarmad Patino Basophils/100 WBC (Bld) 0.3 % Normal 0.2-2.0 [facility] Comment on above: Performed By: #### D DAVIDSON, MG, PHOS, CMP, LIPID, URIC #### [facility] [address] [place] [address] Dr. Sarmad Patino EO # 0.1 103/ul Normal 0.0-0.7 [facility] Comment on above: Performed By: #### D DAVIDSON, MG, PHOS, CMP, LIPID, URIC #### [facility] [address] [place] [address] Dr. Sarmad Patino Eosinophils/100 WBC (Bld) 1.4 % Normal 0.9-7.0 [facility] Comment on above: Performed By: #### D DAVIDSON, MG, PHOS, CMP, LIPID, URIC #### [facility] [address] [place] [address] Dr. Sarmad Patino Erythrocyte distribution width (RBC) [Ratio] 15.8 % Critically high 11.0-15.0 [facility] Comment on above: Performed By: #### D DAVIDSON, MG, PHOS, CMP, LIPID, URIC #### [facility] [address] [place] [address] Dr. Sarmad Patino Hematocrit (Bld) [Volume fraction] 43.0 % Normal 36.0-48.0 [facility] Comment on above: Performed By: #### D DAVIDSON, MG, PHOS, CMP, LIPID, URIC #### [facility] [address] [place] [address] Dr. Sarmad Patino Hemoglobin (Bld) [Mass/Vol] 15.0 g/dL Normal 12.0-16.0 [facility] Comment on above: Performed By: #### D DAVIDSON, MG, PHOS, CMP, LIPID, URIC #### [facility] [address] [address] [address] Sarmad Patino IG # 0.01 10e3/ul Normal 0.00-0.03 [facility] Comment on above: Performed By: #### D DAVIDSON, MG, PHOS, CMP, LIPID, URIC #### [facility] [address] [place] [address] Dr. Sarmad Patino IG % 0.1 % Normal 0.0-0.5 [facility] Comment on above: Performed By: #### D DAVIDSON, MG, PHOS, CMP, LIPID, URIC #### [facility] [address] [place] [address] Dr. Sarmad Patino LYMPH # 1.3 103/ul Normal 1.2-3.8 [facility] Comment on above: Performed By: #### D DAVIDSON, MG, PHOS, CMP, LIPID, URIC #### [facility] [address] [place] [address] Dr. Sarmad Patino Lymphocytes/100 WBC (Bld) 18.3 % Critically low 20.5-60.0 [facility] Comment on above: Performed By: #### D DAVIDSON, MG, PHOS, CMP, LIPID, URIC #### [facility] [address] [place] [address] Dr. Sarmad Patino MANUAL DIFF REQ NO Normal [facility] Comment on above: Performed By: #### D DAVIDSON, MG, PHOS, CMP, LIPID, URIC #### [facility] [address] [place] [address] Dr. Sarmad Patino MCH (RBC) [Entitic mass] 29.7 pg Normal 26.7-34.0 [facility] Comment on above: Performed By: #### D DAVIDSON, MG, PHOS, CMP, LIPID, URIC #### [facility] [address] [place] [address] Dr. Sarmad Patino MCHC (RBC) [Mass/Vol] 34.9 g/dL Normal 29.9-35.2 [facility] Comment on above: Performed By: #### D DAVIDSON, MG, PHOS, CMP, LIPID, URIC #### [facility] [address] [place] [address] Dr. Sarmad Patino MCV (RBC) [Entitic vol] 85.1 fL Normal 81.0-99.0 [facility] Comment on above: Performed By: #### D DAVIDSON, MG, PHOS, CMP, LIPID, URIC #### [facility] [address] [place] [address] Dr. Sarmad Patino MONO # 0.7 103/ul Normal 0.3-0.8 [facility] Comment on above: Performed By: #### D DAVIDSON, MG, PHOS, CMP, LIPID, URIC #### [facility] [address] [place] [address] Dr. Sarmad Patino Monocytes/100 WBC (Bld) 9.8 % Normal 1.7-12.0 [facility] Comment on above: Performed By: #### D DAVIDSON, MG, PHOS, CMP, LIPID, URIC #### [facility] [address] [place] [address] Dr. Sarmad Patino NEUT # 5.1 103/ul Normal 1.4-6.5 [facility] Comment on above: Performed By: #### D DAVIDSON, MG, PHOS, CMP, LIPID, URIC #### [facility] [address] [place] [address] Dr. Sarmad Patino Neutrophils/100 WBC (Bld) 70.1 % Normal 43.0-75.0 [facility] Comment on above: Performed By: #### D DAVIDSON, MG, PHOS, CMP, LIPID, URIC #### [facility] [address] [place] [address] Dr. Sarmad Patino Platelet mean volume (Bld) [Entitic vol] 10.4 fL Normal 9.5-13.5 [facility] Comment on above: Performed By: #### D DAVIDSON, MG, PHOS, CMP, LIPID, URIC #### [facility] [address] [place] [address] Dr. Sarmad Patino PLT 229 103/ul Normal 150-450 [facility] Comment on above: Performed By: #### D DAVIDSON, MG, PHOS, CMP, LIPID, URIC #### [facility] [address] [address] [address] Sarmad Patino RBC 5.05 106/ul Normal 4.20-5.40 [facility] Comment on above: Performed By: #### D DAVIDSON, MG, PHOS, CMP, LIPID, URIC #### [facility] [address] [address] [address] Sarmda Patino WBC 7.2 103/ul Normal 4.0-11.0 [facility] Comment on above: Performed By: #### D DAVIDSON, MG, PHOS, CMP, LIPID, URIC #### [facility] [address] [place] [address] Dr. Sarmad Patino LIPID PROFILEon 04-08-2022 CHOL-HDL RATIO NORM SEE BELOW Normal [facility] Comment on above: Result Comment: 3.3 - 4.4 LOW RISK 4.4 - 7.1 AVERAGE RISK 7.1 - 11.0 MODERATE RISK >11.0 HIGH RISK Performed By: #### U MAXI, LIPID, MG, CMP, DBIL, PHOS #### [facility] [address] [place] [address] Dr. Sarmad Patino Cholesterol [Mass/Vol] 134 mg/dL Normal <=200 [facility] Comment on above: Performed By: #### U MAXI, LIPID, MG, CMP, DBIL, PHOS #### [facility] [address] [place] [address] Dr. Sarmad Patino Cholesterol in HDL [Mass/Vol] 55 mg/dL Normal 40-60 [facility] Comment on above: Performed By: #### U MAXI, LIPID, MG, CMP, DBIL, PHOS #### [facility] [address] [place] [address] Dr. Sarmad Patino Cholesterol in LDL [Mass/Vol] 56.6 mg/dL Normal [facility] Comment on above: Performed By: #### U MAXI, LIPID, MG, CMP, DBIL, PHOS #### [facility] [address] [address] [address] Sarmad Patino Cholesterol.total/Cho lesterol in HDL [Mass ratio] 2.4 {ratio} Normal [facility] Comment on above: Performed By: #### U MAXI, LIPID, MG, CMP, DBIL, PHOS #### [facility] [address] [address] [address] Sarmad Patino HDL NORMAL > or = 60 mg/dl - LO W CARDIOVASCULAR RISK <40 mg/dl - HIGH CARDIOVASCULAR RISK Normal [facility] Comment on above: Performed By: #### U MAXI, LIPID, MG, CMP, DBIL, PHOS #### [facility] [address] [address] [address] Sarmad Patino LDL CALC NORMAL SEE BELOW Normal [facility] Comment on above: Result Comment: <100 mg/dl OPTIMAL 100 - 129 mg/dl NEAR OR ABOVE OPTIMAL 130 - 159 mg/dl BORDERLINE HIGH 160 - 189 mg/dl HIGH >190 mg/dl VERY HIGH Performed By: #### U MAXI, LIPID, MG, CMP, DBIL, PHOS #### [facility] [address] [address] [address] Sarmad Patino Triglyceride [Mass/Vol] 112 mg/dL Normal <=150 [facility] Comment on above: Performed By: #### U MAXI, LIPID, MG, CMP, DBIL, PHOS #### [facility] [address] [address] [address] Sarmad Patino VLDL CALC 22.4 mg/dL Normal [facility] Comment on above: Performed By: #### U MAXI, LIPID, MG, CMP, DBIL, PHOS #### [facility] [address] [address] [address] Sarmad Patino MAGNESIUMon 04-08-2022 Magnesium [Mass/Vol] 1.8 mg/dL Normal 1.8-2.4 [facility] Comment on above: Performed By: #### U MAXI, LIPID, MG, CMP, DBIL, PHOS #### [facility] [address] [address] [address] Sarmad Patino PHOSPHORUSon 04-08-2022 Phosphate [Mass/Vol] 3.9 mg/dL Normal 2.6-4.7 [facility] Comment on above: Performed By: #### U MAXI, LIPID, MG, CMP, DBIL, PHOS #### [facility] [address] [place] [address] Dr. Sarmad Patino PROF 14(COMP METB)on 023 Albumin [Mass/Vol] 4.0 g/dL Normal 3.4-5.0 [facility] Comment on above: Performed By: #### U MAXI, LIPID, MG, CMP, DBIL, PHOS #### [facility] [address] [place] [address] Dr. Sarmad Patino Albumin/Globulin [Mass ratio] 1.3 {ratio} Normal [facility] Comment on above: Performed By: #### U MAXI, LIPID, MG, CMP, DBIL, PHOS #### [facility] [address] [place] [address] Dr. Sarmad Patino ALP [Catalytic activity/Vol] 108 U/L Normal 46-116 [facility] Comment on above: Performed By: #### U MAXI, LIPID, MG, CMP, DBIL, PHOS #### [facility] [address] [place] [address] Dr. Sarmad Patino ALT [Catalytic activity/Vol] 15 U/L Normal 14-59 [facility] Comment on above: Performed By: #### U MAXI, LIPID, MG, CMP, DBIL, PHOS #### [facility] [address] [place] [address] Dr. Sarmad Patino Anion gap [Moles/Vol] 14.3 mmol/L Normal [facility] Comment on above: Performed By: #### U MAXI, LIPID, MG, CMP, DBIL, PHOS #### [facility] [address] [place] [address] Dr. Sarmad Patino AST [Catalytic activity/Vol] 15 U/L Normal 15-37 [facility] Comment on above: Performed By: #### U MAXI, LIPID, MG, CMP, DBIL, PHOS #### [facility] [address] [address] [address] Sarmad Patino Bilirubin [Mass/Vol] 0.5 mg/dL Normal 0.2-1.0 [facility] Comment on above: Performed By: #### U MAXI, LIPID, MG, CMP, DBIL, PHOS #### [facility] [address] [place] [address] Dr. Sarmad Patino Calcium [Mass/Vol] 9.7 mg/dL Normal 8.5-10.1 [facility] Comment on above: Performed By: #### U MAXI, LIPID, MG, CMP, DBIL, PHOS #### [facility] [address] [place] [address] Dr. Sarmad Patino Chloride [Moles/Vol] 105 mmol/L Normal 98-107 [facility] Comment on above: Performed By: #### U MAXI, LIPID, MG, CMP, DBIL, PHOS #### [facility] [address] [place] [address] Dr. Sarmad Patino CO2 [Moles/Vol] 26.6 mmol/L Normal 21.0-32.[address] [facility] Comment on above: Performed By: #### U MAXI, LIPID, MG, CMP, DBIL, PHOS #### [facility] [address] [place] [address] Dr. Sarmad Patino Creatinine [Mass/Vol] 0.80 mg/dL Normal 0.55-1.02 [facility] Comment on above: Performed By: #### U MAXI, LIPID, MG, CMP, DBIL, PHOS #### [facility] [address] [place] [address] Dr. Sarmad Patino EGFR-AF MALAWIAN >60 Normal >=[address] [facility] Comment on above: Performed By: #### U MAXI, LIPID, MG, CMP, DBIL, PHOS #### [facility] [address] [place] [address] Dr. Sarmad Patino EGFR-NON AF MALAWIAN >60 Normal >=60 [facility] Comment on above: Performed By: #### U MAXI, LIPID, MG, CMP, DBIL, PHOS #### [facility] [address] [address] [address] Sarmad Patino Globulin (S) [Mass/Vol] 3.0 g/dL Normal [facility] Comment on above: Performed By: #### U MAXI, LIPID, MG, CMP, DBIL, PHOS #### [facility] [address] [place] [address] Dr. Sarmad Patino Glucose [Mass/Vol] 99 mg/dL Normal 74-[address] [facility] Comment on above: Performed By: #### U MAXI, LIPID, MG, CMP, DBIL, PHOS #### [facility] [address] [place] [address] Dr. Sarmad Patino Potassium [Moles/Vol] 3.9 mmol/L Normal 3.5-5.1 [facility] Comment on above: Performed By: #### U MAXI, LIPID, MG, CMP, DBIL, PHOS #### [facility] [address] [place] [address] Dr. Sarmad Patino Protein [Mass/Vol] 7.0 g/dL Normal 6.4-8.[address] [facility] Comment on above: Performed By: #### U MAXI, LIPID, MG, CMP, DBIL, PHOS #### [facility] [address] [place] [address] Dr. Sarmad Patino Sodium [Moles/Vol] 142 mmol/L Normal 136-[address] [facility] Comment on above: Performed By: #### U MAXI, LIPID, MG, CMP, DBIL, PHOS #### [facility] [address] [place] [address] Dr. Sarmad Patino Urea nitrogen [Mass/Vol] 14.0 mg/dL Normal 7.0-18.0 [facility] Comment on above: Performed By: #### U MAXI, LIPID, MG, CMP, DBIL, PHOS #### [facility] [address] [place] [address] Dr. Sarmad Patino Urea nitrogen/Creatinine [Mass ratio] 17.5 mg/mg Normal [facility] Comment on above: Performed By: #### U MAXI, LIPID, MG, CMP, DBIL, PHOS #### [facility] [address] [address] [address] Sarmad Patino URIC ACID SERUMon 04-08-2022 Urate [Mass/Vol] 5.2 mg/dL Normal 2.6-6.0 [facility] Comment on above: Performed By: #### U MAXI, LIPID, MG, CMP, DBIL, PHOS #### [facility] [address] [address] [address] Sarmad Patino BK VIRUS PCR QUANTon 022 BKV DNA QUANT PCR PLASMA Negative Normal Negative [facility] Comment on above: Result Comment: No B K DNA detected. . The linear range of the assay is 22 - 100,000,000 IU/mL. Performed By: #### D DAVIDSON, MG, PHOS, CMP, LIPID, URIC #### [facility] [address] [address] [address] Sarmad Patino Log10 BKV DNA Plasma Normal [facility] Comment on above: Performed By: #### D DAVIDSON, MG, PHOS, CMP, LIPID, URIC #### [facility] [address] [address] [address] Sarmad Patino FK506 (TACROLIMUS) WHOLE BLO ODon 03-13-2022 Tacrolimus (FK506), Blood 5.0 ng/mL Normal 2.0-20.0 [facility] Comment on above: Result Comment: Trou gh (immediately following transplant) 15.0 . Trough (steady state, 2 weeks or more after transplant): 3.0 - 8.0 . Performed by LC-MS/MS technology. Performed By: #### D DAVIDSON, MG, PHOS, CMP, LIPID, URIC #### [facility] [address] [address] [address] Sarmad Patino GLYCOHEMOGLOBIN A1Con 2021 ADA RECOMMENDATION SEE BELOW Normal [facility] Comment on above: Result Comment: ADA RECOMMENDED LIMIT 4.0 - 6.0 ADA THERAPEUTIC TARGET < 7.0 ACTION SUGGESTED > 7.0 Performed By: #### D DAVIDSON, MG, PHOS, CMP, LIPID, URIC #### [facility] [address] [place] [address] Dr. Sarmad Patino Glucose [Mass/Vol] 111 mg/dL Normal [facility] Comment on above: Performed By: #### D DAVIDSON, MG, PHOS, CMP, LIPID, URIC #### [facility] [address] [place] [address] Dr. Sarmad Patino HbA1c (Bld) [Mass fraction] 5.5 % Normal 4.5-6.2 [facility] Comment on above: Performed By: #### D DAVIDSON, MG, PHOS, CMP, LIPID, URIC #### [facility] [address] [place] [address] Dr. Sarmad Patino LIVER PROFILEon 03-11-2022 Albumin [Mass/Vol] 3.7 g/dL Normal 3.4-5.0 [facility] Comment on above: Performed By: #### D DAVIDSON, MG, PHOS, CMP, LIPID, URIC #### [facility] [address] [place] [address] Dr. Sarmad Patino Albumin/Globulin [Mass ratio] 1.1 {ratio} Normal [facility] Comment on above: Performed By: #### D DAVIDSNO, MG, PHOS, CMP, LIPID, URIC #### [facility] [address] [place] [address] Dr. Sarmad Patino ALP [Catalytic activity/Vol] 124 U/L Critically high 46-116 [facility] Comment on above: Performed By: #### D DAVIDSON, MG, PHOS, CMP, LIPID, URIC #### [facility] [address] [place] [address] Dr. Sarmad Patino ALT [Catalytic activity/Vol] 17 U/L Normal 14-59 [facility] Comment on above: Performed By: #### D DAVIDSON, MG, PHOS, CMP, LIPID, URIC #### [facility] [address] [place] [address] Dr. Sarmad Patino AST [Catalytic activity/Vol] 16 U/L Normal 15-37 [facility] Comment on above: Performed By: #### D DAVIDSON, MG, PHOS, CMP, LIPID, URIC #### [facility] [address] [address] [address] Sarmad Patino BILI, CONJUGATED 0.2 mg/dL Normal 0.0-0.[address] [facility] Comment on above: Performed By: #### D DAVIDSON, MG, PHOS, CMP, LIPID, URIC #### [facility] [address] [place] [address] Dr. Sarmad Patino Bilirubin [Mass/Vol] 0.6 mg/dL Normal 0.2-1.0 [facility] Comment on above: Performed By: #### D DAVIDSON, MG, PHOS, CMP, LIPID, URIC #### [facility] [address] [place] [address] Dr. Sarmad Patino Globulin (S) [Mass/Vol] 3.4 g/dL Normal [facility] Comment on above: Performed By: #### D DAVIDSON, MG, PHOS, CMP, LIPID, URIC #### [facility] [address] [place] [address] Dr. Sarmad Patino Protein [Mass/Vol] 7.1 g/dL Normal 6.4-8.[address] [facility] Comment on above: Performed By: #### D DAVIDSON, MG, PHOS, CMP, LIPID, URIC #### [facility] [address] [place] [address] Dr. Sarmad Patino MAGNESIUMon 03-11-2022 Magnesium [Mass/Vol] 1.6 mg/dL Critically low 1.8-2.4 [facility] Comment on above: Performed By: #### D DAVIDSON, MG, PHOS, CMP, LIPID, URIC #### [facility] [address] [place] [address] Dr. Sarmad Patino PHOSPHORUSon 03-11-2022 Phosphate [Mass/Vol] 3.5 mg/dL Normal 2.6-4.7 [facility] Comment on above: Performed By: #### D DAVIDSON, MG, PHOS, CMP, LIPID, URIC #### [facility] [address] [place] [address] Dr. Sarmad Patino URIC ACID SERUMon 03-11-2022 Urate [Mass/Vol] 5.3 mg/dL Normal 2.6-6.0 [facility] Comment on above: Performed By: #### D DAVIDSON, MG, PHOS, CMP, LIPID, URIC #### [facility] [address] [address] [address] Sarmad Patino MYCOPHENOLIC ACIDon 02-19-20 22 Mycophenolic Acid 1.5 ug/mL Normal 1.0-3.5 [facility] Comment on above: Performed By: #### D DAVIDSON, MG, PHOS, CMP, LIPID, URIC #### [facility] Laboratory [address] [address] [address] Sarmad Patino Mycophenolic Acid Glucuronide 32 ug/mL Normal 15-125 [facility] Comment on above: Result Comment: [facility] 's Reference Range: 35-100 mcg/mL. Performed By: #### D DAVIDSON, MG, PHOS, CMP, LIPID, URIC #### [facility] [address] [place] [address] Dr. Sarmad Patino BK VIRUS PCR QUANTon 022 BKV DNA QUANT PCR PLASMA Negative Normal Negative [facility] Comment on above: Result Comment: No B K DNA detected. . The linear range of the assay is 22 - 100,000,000 IU/mL. Performed By: #### D DAVIDSON, MG, PHOS, CMP, LIPID, URIC #### [facility] [address] [address] [address] Sarmad Patino Log10 BKV DNA Plasma Normal [facility] Comment on above: Performed By: #### D DAVIDSON, MG, PHOS, CMP, LIPID, URIC #### [facility] [address] [place] [address] Dr. Sarmad Patino FK506 (TACROLIMUS) WHOLE BLO ODon 02-11-2022 Tacrolimus (FK506), Blood 4.4 ng/mL Normal 2.0-20.0 [facility] Comment on above: Result Comment: Trou gh (immediately following transplant) 15.0 . Trough (steady state, 2 weeks or more after transplant): 3.0 - 8.0 . Performed by LC-MS/MS technology. Performed By: #### U MAXI, LIPID, MG, CMP, DBIL, PHOS #### [facility] [address] [address] [address] Sarmad Patino BILIRUBIN CONJUGATED (DIRECT )on 02-08-2022 BILI, CONJUGATED 0.1 mg/dL Normal 0.0-0.[address] [facility] Comment on above: Performed By: #### D DAVIDSON, MG, PHOS, CMP, LIPID, URIC #### [facility] [address] [place] [address] Dr. Sarmad Patino CBC AUTO DIFFon 02-08-2022 BASO # 0.0 103/ul Normal 0.0-0.1 [facility] Comment on above: Performed By: #### D DAVIDSON, MG, PHOS, CMP, LIPID, URIC #### [facility] [address] [place] [address] Dr. Sarmad Patino Basophils/100 WBC (Bld) 0.3 % Normal 0.2-2.0 [facility] Comment on above: Performed By: #### D DAVIDSON, MG, PHOS, CMP, LIPID, URIC #### [facility] [address] [place] [address] Dr. Sarmad Patino EO # 0.1 103/ul Normal 0.0-0.7 [facility] Comment on above: Performed By: #### D DAVIDSON, MG, PHOS, CMP, LIPID, URIC #### [facility] [address] [place] [address] Dr. Sarmad Patino Eosinophils/100 WBC (Bld) 1.0 % Normal 0.9-7.0 [facility] Comment on above: Performed By: #### D DAVIDSON, MG, PHOS, CMP, LIPID, URIC #### [facility] [address] [place] [address] Dr. Sarmad Patino Erythrocyte distribution width (RBC) [Ratio] 15.9 % Critically high 11.0-15.0 [facility] Comment on above: Performed By: #### D DAVIDSON, MG, PHOS, CMP, LIPID, URIC #### [facility] [address] [place] [address] Dr. Sarmad Patino Hematocrit (Bld) [Volume fraction] 42.2 % Normal 36.0-48.0 [facility] Comment on above: Performed By: #### D DAVIDSON, MG, PHOS, CMP, LIPID, URIC #### [facility] [address] [address] [address] Sarmad Patino Hemoglobin (Bld) [Mass/Vol] 13.8 g/dL Normal 12.0-16.0 [facility] Comment on above: Performed By: #### D DAVIDSON, MG, PHOS, CMP, LIPID, URIC #### [facility] [address] [address] [address] Sarmad Patino IG # 0.10 10e3/ul Critically high 0.00-0.03 [facility] Comment on above: Performed By: #### D DAVIDSON, MG, PHOS, CMP, LIPID, URIC #### [facility] [address] [place] [address] Dr. Sarmad Patino IG % 1.1 % Critically high 0.0-0.5 [facility] Comment on above: Performed By: #### D DAVIDSON, MG, PHOS, CMP, LIPID, URIC #### [facility] [address] [address] [address] Sarmad Patino LYMPH # 1.2 103/ul Normal 1.2-3.8 [facility] Comment on above: Performed By: #### D DAVIDSON, MG, PHOS, CMP, LIPID, URIC #### [facility] [address] [place] [address] Dr. Sarmad Patino Lymphocytes/100 WBC (Bld) 12.6 % Critically low 20.5-60.0 [facility] Comment on above: Performed By: #### D DAVIDSON, MG, PHOS, CMP, LIPID, URIC #### [facility] [address] [address] [address] Sarmad Patino MANUAL DIFF REQ NO Normal [facility] Comment on above: Performed By: #### D DAVIDSON, MG, PHOS, CMP, LIPID, URIC #### [facility] [address] [address] [address] Sarmad Patino MCH (RBC) [Entitic mass] 28.3 pg Normal 26.7-34.0 [facility] Comment on above: Performed By: #### D DAVIDSON, MG, PHOS, CMP, LIPID, URIC #### [facility] [address] [place] [address] Dr. Sarmad Patino MCHC (RBC) [Mass/Vol] 32.7 g/dL Normal 29.9-35.2 [facility] Comment on above: Performed By: #### D DAVIDSON, MG, PHOS, CMP, LIPID, URIC #### [facility] [address] [place] [address] Dr. Sarmad Patino MCV (RBC) [Entitic vol] 86.7 fL Normal 81.0-99.0 [facility] Comment on above: Performed By: #### D DAVIDSON, MG, PHOS, CMP, LIPID, URIC #### [facility] [address] [place] [address] Dr. Sarmad Patino MONO # 1.0 103/ul Critically high 0.3-0.8 [facility] Comment on above: Performed By: #### D DAVIDSON, MG, PHOS, CMP, LIPID, URIC #### [facility] [address] [place] [address] Dr. Sarmad Patino Monocytes/100 WBC (Bld) 10.7 % Normal 1.7-12.0 [facility] Comment on above: Performed By: #### D DAVIDSON, MG, PHOS, CMP, LIPID, URIC #### [facility] [address] [place] [address] Dr. Sarmad Patino NEUT # 6.9 103/ul Critically high 1.4-6.5 [facility] Comment on above: Performed By: #### D DAVIDSON, MG, PHOS, CMP, LIPID, URIC #### [facility] [address] [place] [address] Dr. Sarmad Patino Neutrophils/100 WBC (Bld) 74.3 % Normal 43.0-75.0 [facility] Comment on above: Performed By: #### D DAVIDSON, MG, PHOS, CMP, LIPID, URIC #### [facility] [address] [place] [address] Dr. Sarmad Patino Platelet mean volume (Bld) [Entitic vol] 11.1 fL Normal 9.5-13.5 [facility] Comment on above: Performed By: #### D DAVIDSON, MG, PHOS, CMP, LIPID, URIC #### [facility] [address] [address] [address] Sarmad Patino PLT 307 103/ul Normal 150-450 [facility] Comment on above: Performed By: #### D DAVIDSON, MG, PHOS, CMP, LIPID, URIC #### [facility] [address] [address] [address] Sarmad Patino RBC 4.87 106/ul Normal 4.20-5.40 [facility] Comment on above: Performed By: #### D DAVIDSON, MG, PHOS, CMP, LIPID, URIC #### [facility] [address] [address] [address] Sarmad Patino WBC 9.3 103/ul Normal 4.0-11.0 [facility] Comment on above: Performed By: #### D DAVIDSON, MG, PHOS, CMP, LIPID, URIC #### [facility] [address] [address] [address] Sarmad Patino GLYCOHEMOGLOBIN A1Con 2021 ADA RECOMMENDATION SEE BELOW Normal [facility] Comment on above: Result Comment: ADA RECOMMENDED LIMIT 4.0 - 6.0 ADA THERAPEUTIC TARGET < 7.0 ACTION SUGGESTED > 7.0 Performed By: #### D DAVIDSON, MG, PHOS, CMP, LIPID, URIC #### [facility] [address] [address] [address] Sarmad Patino Glucose [Mass/Vol] 134 mg/dL Normal [facility] Comment on above: Performed By: #### D DAVIDSON, MG, PHOS, CMP, LIPID, URIC #### [facility] [address] [address] [address] Sarmad Patino HbA1c (Bld) [Mass fraction] 6.3 % Critically high 4.5-6.2 [facility] Comment on above: Performed By: #### D DAVIDSON, MG, PHOS, CMP, LIPID, URIC #### [facility] [address] [address] [address] Sarmad Patino LIPID PROFILEon 02-08-2022 CHOL-HDL RATIO NORM SEE BELOW Normal [facility] Comment on above: Result Comment: 3.3 - 4.4 LOW RISK 4.4 - 7.1 AVERAGE RISK 7.1 - 11.0 MODERATE RISK >11.0 HIGH RISK Performed By: #### D DAVIDSON, MG, PHOS, CMP, LIPID, URIC #### [facility] [address] [address] [address] Sarmad Patino Cholesterol [Mass/Vol] 180 mg/dL Normal <=200 [facility] Comment on above: Performed By: #### D DAVIDSON, MG, PHOS, CMP, LIPID, URIC #### [facility] [address] [address] [address] Sarmad Patino Cholesterol in HDL [Mass/Vol] 58 mg/dL Normal 40-60 [facility] Comment on above: Performed By: #### D DAVIDSON, MG, PHOS, CMP, LIPID, URIC #### [facility] [address] [address] [address] Sarmad Patino Cholesterol in LDL [Mass/Vol] 86.6 mg/dL Normal [facility] Comment on above: Performed By: #### D DAVIDSON, MG, PHOS, CMP, LIPID, URIC #### [facility] [address] [address] [address] Sarmad Patino Cholesterol.total/Cho lesterol in HDL [Mass ratio] 3.1 {ratio} Normal [facility] Comment on above: Performed By: #### D DAVIDSON, MG, PHOS, CMP, LIPID, URIC #### [facility] [address] [address] [address] Sarmad Patino HDL NORMAL > or = 60 mg/dl - LO W CARDIOVASCULAR RISK <40 mg/dl - HIGH CARDIOVASCULAR RISK Normal [facility] Comment on above: Performed By: #### D DAVIDSON, MG, PHOS, CMP, LIPID, URIC #### [facility] [address] [address] [address] Sarmad Patino LDL CALC NORMAL SEE BELOW Normal [facility] Comment on above: Result Comment: <100 mg/dl OPTIMAL 100 - 129 mg/dl NEAR OR ABOVE OPTIMAL 130 - 159 mg/dl BORDERLINE HIGH 160 - 189 mg/dl HIGH >190 mg/dl VERY HIGH Performed By: #### D DAVIDSON, MG, PHOS, CMP, LIPID, URIC #### [facility] [address] [address] [address] Sarmad Patino Triglyceride [Mass/Vol] 177 mg/dL Critically high <=150 [facility] Comment on above: Performed By: #### D DAVIDSON, MG, PHOS, CMP, LIPID, URIC #### [facility] [address] [address] [address] Sarmad Patino VLDL CALC 35.4 mg/dL Normal [facility] Comment on above: Performed By: #### D DAVIDSNO, MG, PHOS, CMP, LIPID, URIC #### [facility] [address] [place] [address] Dr. Sarmad Patino MAGNESIUMon 02-08-2022 Magnesium [Mass/Vol] 1.8 mg/dL Normal 1.8-2.4 [facility] Comment on above: Performed By: #### D DAVIDSON, MG, PHOS, CMP, LIPID, URIC #### [facility] [address] [place] [address] Dr. Sarmad Patino PHOSPHORUSon 02-08-2022 Phosphate [Mass/Vol] 3.3 mg/dL Normal 2.6-4.7 [facility] Comment on above: Performed By: #### D DAVIDSON, MG, PHOS, CMP, LIPID, URIC #### [facility] [address] [place] [address] Dr. Sarmad Patino PROF 14(COMP METB)on 022 Albumin [Mass/Vol] 3.8 g/dL Normal 3.4-5.0 [facility] Comment on above: Performed By: #### D DAVIDSON, MG, PHOS, CMP, LIPID, URIC #### [facility] [address] [place] [address] Dr. Sarmad Patino Albumin/Globulin [Mass ratio] 1.3 {ratio} Normal [facility] Comment on above: Performed By: #### D DAVIDSON, MG, PHOS, CMP, LIPID, URIC #### [facility] [address] [address] [address] Sarmad Patino ALP [Catalytic activity/Vol] 144 U/L Critically high 46-116 [facility] Comment on above: Performed By: #### D DAVIDSON, MG, PHOS, CMP, LIPID, URIC #### [facility] [address] [address] [address] Sarmad Patino ALT [Catalytic activity/Vol] 24 U/L Normal 14-59 [facility] Comment on above: Performed By: #### D DAVIDSON, MG, PHOS, CMP, LIPID, URIC #### [facility] [address] [place] [address] Dr. Sarmad Patino Anion gap [Moles/Vol] 13.7 mmol/L Normal [facility] Comment on above: Performed By: #### D DAVIDSON, MG, PHOS, CMP, LIPID, URIC #### [facility] [address] [place] [address] Dr. Sarmad Patino AST [Catalytic activity/Vol] 19 U/L Normal 15-37 [facility] Comment on above: Performed By: #### D DAVIDSON, MG, PHOS, CMP, LIPID, URIC #### [facility] [address] [place] [address] Dr. Sarmad Patino Bilirubin [Mass/Vol] 0.5 mg/dL Normal 0.2-1.0 [facility] Comment on above: Performed By: #### D DAVIDSON, MG, PHOS, CMP, LIPID, URIC #### [facility] [address] [place] [address] Dr. Sarmad Patino Calcium [Mass/Vol] 9.6 mg/dL Normal 8.5-10.1 [facility] Comment on above: Performed By: #### D DAVIDSON, MG, PHOS, CMP, LIPID, URIC #### [facility] [address] [place] [address] Dr. Sarmad Patino Chloride [Moles/Vol] 103 mmol/L Normal 98-107 [facility] Comment on above: Performed By: #### D DAVIDSON, MG, PHOS, CMP, LIPID, URIC #### [facility] [address] [place] [address] Dr. Sarmad Patino CO2 [Moles/Vol] 26.6 mmol/L Normal 21.0-32.0 [facility] Comment on above: Performed By: #### D DAVIDSON, MG, PHOS, CMP, LIPID, URIC #### [facility] [address] [place] [address] Dr. Sarmad Patino Creatinine [Mass/Vol] 0.75 mg/dL Normal 0.55-1.02 [facility] Comment on above: Performed By: #### D DAVIDSON, MG, PHOS, CMP, LIPID, URIC #### [facility] [address] [place] [address] Dr. Sarmad Patino EGFR-AF MALAWIAN >60 Normal >=60 [facility] Comment on above: Performed By: #### D DAVIDSON, MG, PHOS, CMP, LIPID, URIC #### [facility] [address] [place] [address] Dr. Sarmad Patino EGFR-NON AF MALAWIAN >60 Normal >=60 [facility] Comment on above: Performed By: #### D DAVIDSON, MG, PHOS, CMP, LIPID, URIC #### [facility] [address] [place] [address] Dr. Sarmad Patino Globulin (S) [Mass/Vol] 3.0 g/dL Normal [facility] Comment on above: Performed By: #### D DAVIDSON, MG, PHOS, CMP, LIPID, URIC #### [facility] [address] [place] [address] Dr. Sarmad Patino Glucose [Mass/Vol] 99 mg/dL Normal 74-106 [facility] Comment on above: Performed By: #### D DAVIDSON, MG, PHOS, CMP, LIPID, URIC #### [facility] [address] [place] [address] Dr. Sarmad Patino Potassium [Moles/Vol] 4.3 mmol/L Normal 3.5-5.1 [facility] Comment on above: Performed By: #### D DAVIDSON, MG, PHOS, CMP, LIPID, URIC #### [facility] [address] [place] [address] Dr. Sarmad Patino Protein [Mass/Vol] 6.8 g/dL Normal 6.4-8.2 [facility] Comment on above: Performed By: #### D DAVIDSON, MG, PHOS, CMP, LIPID, URIC #### [facility] [address] [place] [address] Dr. Sarmad Patino Sodium [Moles/Vol] 139 mmol/L Normal 136-[address] [facility] Comment on above: Performed By: #### D DAVIDSON, MG, PHOS, CMP, LIPID, URIC #### [facility] [address] [place] [address] Dr. Sarmad Patino Urea nitrogen [Mass/Vol] 16.0 mg/dL Normal 7.0-18.0 [facility] Comment on above: Performed By: #### D DAVIDSON, MG, PHOS, CMP, LIPID, URIC #### [facility] [address] [place] [address] Dr. Sarmad Patino Urea nitrogen/Creatinine [Mass ratio] 21.3 mg/mg Normal [facility] Comment on above: Performed By: #### D DAVIDSON, MG, PHOS, CMP, LIPID, URIC #### [facility] [address] [place] [address] Dr. Sarmad Patino URIC ACID SERUMon 02-08-2022 Urate [Mass/Vol] 5.4 mg/dL Normal 2.6-6.0 [facility] Comment on above: Performed By: #### D DAVIDSON, MG, PHOS, CMP, LIPID, URIC #### [facility] [address] [place] [address] Dr. Sarmad Patino BK VIRUS PCR QUANTon 022 BKV DNA QUANT PCR PLASMA 27 IU/mL Normal Negative [facility] Comment on above: Result Comment: The linear range of the assay is 22 - 100,000,000 IU/mL. Performed By: #### D DAVIDSON, MG, PHOS, CMP, LIPID, URIC #### [facility] [address] [place] [address] Dr. Sarmad Patino Log10 BKV DNA Plasma 1.431 log10 IU/mL Normal [facility] Comment on above: Performed By: #### D DAVIDSON, MG, PHOS, CMP, LIPID, URIC #### [facility] [address] [place] [address] Dr. Sarmad Patino FK506 (TACROLIMUS) WHOLE BLO ODon 01-30-2022 Tacrolimus (FK506), Blood 6.5 ng/mL Normal 2.0-20.0 [facility] Comment on above: Result Comment: Trou gh (immediately following transplant) 15.0 . Trough (steady state, 2 weeks or more after transplant): 3.0 - 8.0 . Performed by LC-MS/MS technology. Performed By: #### D DAVIDSON, MG, PHOS, CMP, LIPID, URIC #### [facility] [address] [place] [address] Dr. Sarmad Patino RAPAMUNE(SIROLIMUS)on 2021 Rapamune(Sirolimus), whole blood 9.9 ng/mL Normal 3.0-20.0 [facility] Comment on above: Result Comment: Perf ormed by LC/MS-MS technology . This test was developed and its performance characteristics determined by [employer]. It has not been cleared or approved by the Food and Drug Administration. Performed By: #### D DVAIDSON, MG, PHOS, CMP, LIPID, URIC #### [facility] [address] [place] [address] Dr. Sarmad Patino BILIRUBIN CONJUGATED (DIRECT )on 01-28-2022 BILI, CONJUGATED 0.1 mg/dL Normal 0.0-0.2 [facility] Comment on above: Performed By: #### D DAVIDSON, MG, PHOS, CMP, LIPID, URIC #### [facility] [address] [address] [address] Sarmad Patino CBC AUTO DIFFon 01-28-2022 BASO # 0.0 103/ul Normal 0.0-0.1 [facility] Comment on above: Performed By: #### D DAVIDSON, MG, PHOS, CMP, LIPID, URIC #### [facility] [address] [place] [address] Dr. Sarmad Patino Basophils/100 WBC (Bld) 0.3 % Normal 0.2-2.0 [facility] Comment on above: Performed By: #### D DAVIDSON, MG, PHOS, CMP, LIPID, URIC #### [facility] [address] [place] [address] Dr. Sarmad Patino EO # 0.2 103/ul Normal 0.0-0.7 [facility] Comment on above: Performed By: #### D DAVIDSON, MG, PHOS, CMP, LIPID, URIC #### [facility] [address] [place] [address] Dr. Sarmad Patino Eosinophils/100 WBC (Bld) 3.1 % Normal 0.9-7.0 [facility] Comment on above: Performed By: #### D DAVIDSON, MG, PHOS, CMP, LIPID, URIC #### [facility] [address] [place] [address] Dr. Sarmad Patino Erythrocyte distribution width (RBC) [Ratio] 15.4 % Critically high 11.0-15.0 [facility] Comment on above: Performed By: #### D DAVIDSON, MG, PHOS, CMP, LIPID, URIC #### [facility] [address] [place] [address] Dr. Sarmad Patino Hematocrit (Bld) [Volume fraction] 42.6 % Normal 36.0-48.0 [facility] Comment on above: Performed By: #### D DAVIDSON, MG, PHOS, CMP, LIPID, URIC #### [facility] [address] [place] [address] Dr. Sarmad Patino Hemoglobin (Bld) [Mass/Vol] 14.0 g/dL Normal 12.0-16.0 [facility] Comment on above: Performed By: #### D DAVIDSON, MG, PHOS, CMP, LIPID, URIC #### [facility] [address] [place] [address] Dr. Sarmad Patino IG # 0.05 10e3/ul Critically high 0.00-0.03 [facility] Comment on above: Performed By: #### D DAVIDSON, MG, PHOS, CMP, LIPID, URIC #### [facility] [address] [place] [address] Dr. Sarmad Patino IG % 0.7 % Critically high 0.0-0.5 [facility] Comment on above: Performed By: #### D DAVIDSON, MG, PHOS, CMP, LIPID, URIC #### [facility] [address] [place] [address] Dr. Sarmad Patino LYMPH # 1.1 103/ul Critically low 1.2-3.8 [facility] Comment on above: Performed By: #### D DAVIDSON, MG, PHOS, CMP, LIPID, URIC #### [facility] [address] [place] [address] Dr. Sarmad Patino Lymphocytes/100 WBC (Bld) 15.8 % Critically low 20.5-60.0 [facility] Comment on above: Performed By: #### D DAVIDSON, MG, PHOS, CMP, LIPID, URIC #### [facility] [address] [place] [address] Dr. Sarmad Patino MANUAL DIFF REQ NO Normal [facility] Comment on above: Performed By: #### D DAVIDSON, MG, PHOS, CMP, LIPID, URIC #### [facility] [address] [place] [address] Dr. Sarmad Patino MCH (RBC) [Entitic mass] 28.3 pg Normal 26.7-34.0 [facility] Comment on above: Performed By: #### D DAVIDSON, MG, PHOS, CMP, LIPID, URIC #### [facility] [address] [place] [address] Dr. Sarmad Patino MCHC (RBC) [Mass/Vol] 32.9 g/dL Normal 29.9-35.2 [facility] Comment on above: Performed By: #### D DAVIDSON, MG, PHOS, CMP, LIPID, URIC #### [facility] [address] [place] [address] Dr. Sarmad Patino MCV (RBC) [Entitic vol] 86.2 fL Normal 81.0-99.0 [facility] Comment on above: Performed By: #### D DAVIDSON, MG, PHOS, CMP, LIPID, URIC #### [facility] [address] [place] [address] Dr. Sarmad Patino MONO # 0.8 103/ul Normal 0.3-0.8 [facility] Comment on above: Performed By: #### D DAVIDSON, MG, PHOS, CMP, LIPID, URIC #### [facility] [address] [place] [address] Dr. Sarmad Patino Monocytes/100 WBC (Bld) 11.0 % Normal 1.7-12.0 [facility] Comment on above: Performed By: #### D DAVIDSON, MG, PHOS, CMP, LIPID, URIC #### [facility] [address] [place] [address] Dr. Sarmad Patino NEUT # 4.8 103/ul Normal 1.4-6.5 [facility] Comment on above: Performed By: #### D DAVIDSON, MG, PHOS, CMP, LIPID, URIC #### [facility] [address] [place] [address] Dr. Sarmad Patino Neutrophils/100 WBC (Bld) 69.1 % Normal 43.0-75.0 [facility] Comment on above: Performed By: #### D DAVIDSON, MG, PHOS, CMP, LIPID, URIC #### [facility] [address] [place] [address] Dr. Sarmad Patino Platelet mean volume (Bld) [Entitic vol] 10.8 fL Normal 9.5-13.5 [facility] Comment on above: Performed By: #### D DAVIDSON, MG, PHOS, CMP, LIPID, URIC #### [facility] [facility] [address] [place] [address] Dr. Sarmad Patino PLT 208 103/ul Normal 150-450 [facility] Comment on above: Performed By: #### D DAVIDSON, MG, PHOS, CMP, LIPID, URIC #### [facility] [address] [place] [address] Dr. Sarmad Patino RBC 4.94 106/ul Normal 4.20-5.40 [facility] Comment on above: Performed By: #### D DAVIDSON, MG, PHOS, CMP, LIPID, URIC #### [facility] [address] [address] [address] Sarmad Patino WBC 7.0 103/ul Normal 4.0-11.0 [facility] Comment on above: Performed By: #### D DAVIDSON, MG, PHOS, CMP, LIPID, URIC #### [facility] [address] [address] [address] Sarmad Patino GLYCOHEMOGLOBIN A1Con 2021 ADA RECOMMENDATION SEE BELOW Normal [facility] Comment on above: Result Comment: ADA RECOMMENDED LIMIT 4.0 - 6.0 ADA THERAPEUTIC TARGET < 7.0 ACTION SUGGESTED > 7.0 Performed By: #### D DAVIDSON, MG, PHOS, CMP, LIPID, URIC #### [facility] [address] [address] [address] Sarmad Patino Glucose [Mass/Vol] 137 mg/dL Normal [facility] Comment on above: Performed By: #### D DAVIDSON, MG, PHOS, CMP, LIPID, URIC #### [facility] [address] [address] [address] Sarmad Patino HbA1c (Bld) [Mass fraction] 6.4 % Critically high 4.5-6.2 [facility] Comment on above: Performed By: #### D DAVIDSON, MG, PHOS, CMP, LIPID, URIC #### [facility] [address] [address] [address] Sarmad Patino LIPID PROFILEon 01-28-2022 CHOL-HDL RATIO NORM SEE BELOW Normal [facility] Comment on above: Result Comment: 3.3 - 4.4 LOW RISK 4.4 - 7.1 AVERAGE RISK 7.1 - 11.0 MODERATE RISK >11.0 HIGH RISK Performed By: #### D DAVIDSON, MG, PHOS, CMP, LIPID, URIC #### [facility] [address] [address] [address] Sarmad Patino Cholesterol [Mass/Vol] 209 mg/dL Critically high <=200 [facility] Comment on above: Performed By: #### D DAVIDSON, MG, PHOS, CMP, LIPID, URIC #### [facility] [address] [address] [address] Sarmad Patino Cholesterol in HDL [Mass/Vol] 59 mg/dL Normal 40-60 [facility] Comment on above: Performed By: #### D DAVIDSON, MG, PHOS, CMP, LIPID, URIC #### [facility] [address] [address] [address] Sarmad Patino Cholesterol in LDL [Mass/Vol] 100.4 mg/dL Normal [facility] Comment on above: Performed By: #### D DAVIDSON, MG, PHOS, CMP, LIPID, URIC #### [facility] [address] [address] [address] Sarmad Patino Cholesterol.total/Cho lesterol in HDL [Mass ratio] 3.5 {ratio} Normal [facility] Comment on above: Performed By: #### D DAVIDSON, MG, PHOS, CMP, LIPID, URIC #### [facility] [address] [address] [address] Sarmad Patino HDL NORMAL > or = 60 mg/dl - LO W CARDIOVASCULAR RISK <40 mg/dl - HIGH CARDIOVASCULAR RISK Normal [facility] Comment on above: Performed By: #### D DAVIDSON, MG, PHOS, CMP, LIPID, URIC #### [facility] [address] [address] [address] Sarmad Patino LDL CALC NORMAL SEE BELOW Normal [facility] Comment on above: Result Comment: <100 mg/dl OPTIMAL 100 - 129 mg/dl NEAR OR ABOVE OPTIMAL 130 - 159 mg/dl BORDERLINE HIGH 160 - 189 mg/dl HIGH >190 mg/dl VERY HIGH Performed By: #### D DAVIDSON, MG, PHOS, CMP, LIPID, URIC #### [facility] [address] [address] [address] Sarmad Patino Triglyceride [Mass/Vol] 248 mg/dL Critically high <=150 [facility] Comment on above: Performed By: #### D DAVIDSON, MG, PHOS, CMP, LIPID, URIC #### [facility] [address] [address] [address] Sarmad Patino VLDL CALC 49.6 mg/dL Normal [facility] Comment on above: Performed By: #### D DAVIDSON, MG, PHOS, CMP, LIPID, URIC #### [facility] [address] [address] [address] Sarmad Patino MAGNESIUMon 01-28-2022 Magnesium [Mass/Vol] 1.6 mg/dL Critically low 1.8-2.4 [facility] Comment on above: Performed By: #### D DAVIDSON, MG, PHOS, CMP, LIPID, URIC #### [facility] [address] [place] [address] Dr. Sarmad Patino PHOSPHORUSon 01-28-2022 Phosphate [Mass/Vol] 2.7 mg/dL Normal 2.6-4.7 [facility] Comment on above: Performed By: #### D DAVIDSON, MG, PHOS, CMP, LIPID, URIC #### [facility] [address] [place] [address] Dr. Sarmad Patino PROF 14(COMP METB)on 022 Albumin [Mass/Vol] 3.3 g/dL Critically low 3.4-5.0 [facility] Comment on above: Performed By: #### D DAVIDSON, MG, PHOS, CMP, LIPID, URIC #### [facility] [address] [place] [address] Dr. Sarmad Patino Albumin/Globulin [Mass ratio] 0.9 {ratio} Normal [facility] Comment on above: Performed By: #### D DAVIDSON, MG, PHOS, CMP, LIPID, URIC #### [facility] [address] [place] [address] Dr. Sarmad Patino ALP [Catalytic activity/Vol] 124 U/L Critically high 46-116 [facility] Comment on above: Performed By: #### D DAVIDSON, MG, PHOS, CMP, LIPID, URIC #### [facility] [address] [place] [address] Dr. Sarmad Patino ALT [Catalytic activity/Vol] 28 U/L Normal 14-59 [facility] Comment on above: Performed By: #### D DAVIDSON, MG, PHOS, CMP, LIPID, URIC #### [facility] [address] [place] [address] Dr. Sarmad Patino Anion gap [Moles/Vol] 12.0 mmol/L Normal [facility] Comment on above: Performed By: #### D DAVIDSON, MG, PHOS, CMP, LIPID, URIC #### [facility] [address] [address] [address] Sarmad Patino AST [Catalytic activity/Vol] 20 U/L Normal 15-37 [facility] Comment on above: Performed By: #### D DAVIDSON, MG, PHOS, CMP, LIPID, URIC #### [facility] [address] [address] [address] Sarmad Patino Bilirubin [Mass/Vol] 0.5 mg/dL Normal 0.2-1.0 [facility] Comment on above: Performed By: #### D DAVIDSON, MG, PHOS, CMP, LIPID, URIC #### [facility] [address] [place] [address] Dr. Sarmad Patino Calcium [Mass/Vol] 9.1 mg/dL Normal 8.5-10.1 [facility] Comment on above: Performed By: #### D DAVIDSON, MG, PHOS, CMP, LIPID, URIC #### [facility] [address] [address] [address] Sarmad Patino Chloride [Moles/Vol] 104 mmol/L Normal 98-107 [facility] Comment on above: Performed By: #### D DAVIDSON, MG, PHOS, CMP, LIPID, URIC #### [facility] [address] [address] [address] Sarmad Patino CO2 [Moles/Vol] 25.7 mmol/L Normal 21.0-32.0 [facility] Comment on above: Performed By: #### D DAVIDSON, MG, PHOS, CMP, LIPID, URIC #### [facility] [address] [address] [address] Sarmad Patino Creatinine [Mass/Vol] 0.77 mg/dL Normal 0.55-1.02 [facility] Comment on above: Performed By: #### D DAVIDSON, MG, PHOS, CMP, LIPID, URIC #### [facility] [address] [place] [address] Dr. Sarmad Patino EGFR-AF MALAWIAN >60 Normal >=60 [facility] Comment on above: Performed By: #### D DAVIDSON, MG, PHOS, CMP, LIPID, URIC #### [facility] [address] [address] [address] Sarmad Patino EGFR-NON AF MALAWIAN >60 Normal >=60 [facility] Comment on above: Performed By: #### D DAVIDSON, MG, PHOS, CMP, LIPID, URIC #### [facility] [address] [address] [address] Sarmad Patino Globulin (S) [Mass/Vol] 3.7 g/dL Normal [facility] Comment on above: Performed By: #### D DAVIDSON, MG, PHOS, CMP, LIPID, URIC #### [facility] [address] [address] [address] Sarmad Patino Glucose [Mass/Vol] 108 mg/dL Critically high 74-106 T [facility] Comment on above: Performed By: #### D DAVIDSON, MG, PHOS, CMP, LIPID, URIC #### [facility] [address] [address] [address] Sarmad Patino Potassium [Moles/Vol] 3.7 mmol/L Normal 3.5-5.1 [facility] Comment on above: Performed By: #### D DAVIDSON, MG, PHOS, CMP, LIPID, URIC #### [facility] [address] [address] [address] Sarmad Patino Protein [Mass/Vol] 7.0 g/dL Normal 6.4-8.2 [facility] Comment on above: Performed By: #### D DAVIDSON, MG, PHOS, CMP, LIPID, URIC #### [facility] [address] [address] [address] Sarmad Patino Sodium [Moles/Vol] 138 mmol/L Normal 136-145 [facility] Comment on above: Performed By: #### D DAVIDSON, MG, PHOS, CMP, LIPID, URIC #### [facility] [address] [address] [address] Sarmad Patino Urea nitrogen [Mass/Vol] 15.0 mg/dL Normal 7.0-18.0 [facility] Comment on above: Performed By: #### D DAVIDSON, MG, PHOS, CMP, LIPID, URIC #### [facility] [id number] Sarmad Patino Urea nitrogen/Creatinine [Mass ratio] 19.5 mg/mg Normal [facility] Comment on above: Performed By: #### D DAVIDSON, MG, PHOS, CMP, LIPID, URIC #### [facility] [address] [address] [address] Sarmad Patino URIC ACID SERUMon 01-28-2022 Urate [Mass/Vol] 4.3 mg/dL Normal 2.6-6.[address] [facility] Comment on above: Performed By: #### D DAVIDSON, MG, PHOS, CMP, LIPID, URIC #### [facility] [address] [address] [address] Sarmad Patino Quick Strepon 01-12-2022 S. pyogenes Org specific cx Ql (Throat) Negative [employer] Other Quick Strep [employer] [facility] [employer] Other XR CHEST 1 Von 01-07-2022 XR [...] left basilar infiltrates; improved. Electronically authenticated by: ARTEMIO BERNARD Date: 2022-01-07 15:00 Normal [facility] CBC W MANUAL DIFFon 01-04-20 22 ATYPICAL LYMPH # 1.40 103/ul Normal The [facility] Comment on above: Performed By: #### D DAVIDSON, MG, PHOS, CMP, LIPID, URIC #### [facility] [address] [address] [address] Sarmad Patino ATYPICAL LYMPH % 10 % Normal [facility] Comment on above: Performed By: #### D DAVIDSON, MG, PHOS, CMP, LIPID, URIC #### [facility] [address] [address] [address] Sarmad Patino BAND # 0.6 103/ul Critically high 0.0-0.3 [facility] Comment on above: Performed By: #### D DAVIDSON, MG, PHOS, CMP, LIPID, URIC #### [facility] [address] [address] [address] Sarmad Patino BAND % 4 % Normal 0-5 [facility] Comment on above: Performed By: #### D DAVIDSON, MG, PHOS, CMP, LIPID, URIC #### [facility] [address] [place] [address] Dr. Sarmad Patino BASOM # 0.00 103/ul Normal 0.00-0.10 [facility] Comment on above: Performed By: #### D DAVIDSON, MG, PHOS, CMP, LIPID, URIC #### [facility] [address] [address] [address] Sarmad Patino BASOM % 0.0 % Critically low 0.2-2.0 [facility] Comment on above: Performed By: #### D DAVIDSON, MG, PHOS, CMP, LIPID, URIC #### [facility] [address] [address] [address] Sarmad Patino BLAST # Normal [facility] Comment on above: Performed By: #### D DAVIDSON, MG, PHOS, CMP, LIPID, URIC #### [facility] [address] [address] [address] Sarmad Patino BLAST % Normal [facility] Comment on above: Performed By: #### D DAVIDSON, MG, PHOS, CMP, LIPID, URIC #### [facility] [address] [address] [address] Sarmad Patino CORRECTED WBC Normal 4.0-11.0 [facility] Comment on above: Performed By: #### D DAVIDSON, MG, PHOS, CMP, LIPID, URIC #### [facility] [address] [address] [address] Sarmad Patino EOS # 0.14 103/ul Normal 0.00-0.70 [facility] Comment on above: Performed By: #### D DAVIDSON, MG, PHOS, CMP, LIPID, URIC #### [facility] [address] [place] [address] Dr. Sarmad Patino EOS% 1.0 % Normal 0.9-7.0 [facility] Comment on above: Performed By: #### D DAVIDSON, MG, PHOS, CMP, LIPID, URIC #### [facility] [address] [place] [address] Dr. Sarmad Patino HCT 42.8 % Normal 36.0-48.0 [facility] Comment on above: Performed By: #### D DAVIDSON, MG, PHOS, CMP, LIPID, URIC #### [facility] [address] [place] [address] Dr. Sarmad Patino HGB 14.2 g/dl Normal 12.0-16.0 [facility] Comment on above: Performed By: #### D DAVIDSON, MG, PHOS, CMP, LIPID, URIC #### [facility] [address] [place] [address] Dr. Sarmad Patino LYMPHM # 0.00 103/ul Critically low 1.20-3.80 [facility] Comment on above: Performed By: #### D DAVIDSON, MG, PHOS, CMP, LIPID, URIC #### [facility] [address] [place] [address] Dr. Sarmad Patino LYMPHM% 0.0 % Critically low 20.5-60.0 [facility] Comment on above: Performed By: #### D DAVIDSON, MG, PHOS, CMP, LIPID, URIC #### [facility] [address] [place] [address] Dr. Sarmad Patino MCH 28.8 pg Normal 26.7-34.0 [facility] Comment on above: Performed By: #### D DAVIDSON, MG, PHOS, CMP, LIPID, URIC #### [facility] [address] [address] [address] Sarmad Patino MCHC 33.2 g/dl Normal 29.9-35.2 [facility] Comment on above: Performed By: #### D DAVIDSON, MG, PHOS, CMP, LIPID, URIC #### [facility] [address] [address] [address] Sarmad Patino MCV 86.8 fL Normal 81.0-99.0 [facility] Comment on above: Performed By: #### D DAVIDSON, MG, PHOS, CMP, LIPID, URIC #### [facility] [address] [address] [address] Sarmad Patino METAMYELOCYTE # Normal [facility] Comment on above: Performed By: #### D DAVIDSON, MG, PHOS, CMP, LIPID, URIC #### [facility] [address] [place] [address] Dr. Sarmad Patino METAMYELOCYTE % Normal [facility] Comment on above: Performed By: #### D DAVIDSON, MG, PHOS, CMP, LIPID, URIC #### [facility] [address] [address] [address] Sarmad Patino MONOM# 0.84 103/ul Critically high 0.30-0.80 [facility] Comment on above: Performed By: #### D DAVIDSON, MG, PHOS, CMP, LIPID, URIC #### [facility] [address] [address] [address] Sarmad Patino MONOM% 6.0 % Normal 1.7-12.0 [facility] Comment on above: Performed By: #### D DAVIDSON, MG, PHOS, CMP, LIPID, URIC #### [facility] [address] [address] [address] Sarmad Patino MPV 11.5 fL Normal 9.5-13.5 [facility] Comment on above: Performed By: #### D DAVIDSON, MG, PHOS, CMP, LIPID, URIC #### [facility] [address] [address] [address] Sarmad Patino MYELOCYTE # 0.3 103/ul Normal [facility] Comment on above: Performed By: #### D DAVIDSON, MG, PHOS, CMP, LIPID, URIC #### [facility] [address] [place] [address] Dr. Sarmad Patino MYELOCYTE % 2 % Normal [facility] Comment on above: Performed By: #### D DAVIDSON, MG, PHOS, CMP, LIPID, URIC #### [facility] [address] [place] [address] Dr. Sarmad Patino NRBC Normal [facility] Comment on above: Performed By: #### D DAVIDSON, MG, PHOS, CMP, LIPID, URIC #### [facility] [address] [place] [address] Dr. Sarmad Patino PLT 180 103/ul Normal 150-450 [facility] Comment on above: Performed By: #### D DAVIDSON, MG, PHOS, CMP, LIPID, URIC #### [facility] [address] [place] [address] Dr. Sarmad Patino RBC 4.93 106/ul Normal 4.20-5.40 [facility] Comment on above: Performed By: #### D DAVIDSON, MG, PHOS, CMP, LIPID, URIC #### [facility] [address] [place] [address] Dr. Sarmad Patino RDW 13.9 % Normal 11.0-15.0 [facility] Comment on above: Performed By: #### D DAVIDSON, MG, PHOS, CMP, LIPID, URIC #### [facility] [address] [place] [address] Dr. Sarmad Patino SEG # 10.78 103/ul Critically high 1.40-6.[address] [facility] Comment on above: Performed By: #### D DAVIDSON, MG, PHOS, CMP, LIPID, URIC #### [facility] [address] [place] [address] Dr. Sarmad Patino SEG % 77.0 % Critically high 43.0-75.0 [facility] Comment on above: Performed By: #### D DAVIDSON, MG, PHOS, CMP, LIPID, URIC #### [facility] [address] [place], [place] [address] Dr. Sarmad Patino WBC 14.0 103/ul Critically high 4.0-11.[address] [facility] Comment on above: Performed By: #### D DAVIDSON, MG, PHOS, CMP, LIPID, URIC #### [facility] [address] [place], [place] [address] W [...] middle ear cavities clear. Skull base intact. Ship[employer] Pilot spaces normal. Parotid glands normal. Submandibular glands [...] F HOPPER Date: 2022-01-03 10:40 Normal [facility]on SARS-CoV-2 (COVID-19) RNA MURALI+probe Ql (Unsp spec) Detected Critically abnormal NOT DETECTED [facility] Comment on above: Result Comment: This test is not yet approved or cleared by the [place] FDA. When there are no FDA-approved or cleared tests available, and other criteria are met, FDA can make tests available under an emergency access mechanism called an Emergency Use Authorization (EUA). The EUA for this test is supported by the Electric Detector Operator of Health and Human Service's declaration that [...] DAVIDSON, MG, PHOS, CMP, LIPID, URIC #### [facility] [address] [place] [address] Dr. Sarmad Patino GROUP A STREP CULTUREon S. pyogenes Ag Ql (Unsp spec) Culture Observations: Negative for Group A Streptococcus Normal [facility] Comment on above: Performed By: #### U MAXI, LIPID, MG, CMP, DBIL, PHOS #### [facility] [address] [place] [address] Dr. Sarmad Patino INFLUENZA A AND B AGon 01-03 INFLUENZA A AG Negative Normal NEGATIVE SEE COMMENT [facility] Comment on above: Performed By: #### D DAVIDSON, MG, PHOS, CMP, LIPID, URIC #### [facility] [address] [place] [address] Dr. Sarmad Patino INFLUENZA B AG Negative Normal NEGATIVE SEE COMMENT [facility] Comment on above: Performed By: #### D DAVIDSON, MG, PHOS, CMP, LIPID, URIC #### [facility] [address] [place] [address] Dr. Sarmad Patino INTERNAL CONTROLS Within Normal Limits Normal Wi thin Normal Limits [facility] Comment on above: Performed By: #### D DAVIDSON, MG, PHOS, CMP, LIPID, URIC #### [facility] [address] [place] [address] Dr. Sarmad Patino PROF 14(COMP METB)on 022 Albumin [Mass/Vol] 2.5 g/dL Critically low 3.4-5.0 Th e [facility] Comment on above: Performed By: #### U MAXI, LIPID, MG, CMP, DBIL, PHOS #### [facility] [address] [place] [address] Dr. Sarmad Patino Albumin/Globulin [Mass ratio] 0.5 {ratio} Normal [facility] Comment on above: Performed By: #### U MAXI, LIPID, MG, CMP, DBIL, PHOS #### [facility] [address] [place] [address] Dr. Sarmad Patino ALP [Catalytic activity/Vol] 185 U/L Critically high 46-116 [facility] Comment on above: Performed By: #### U MAXI, LIPID, MG, CMP, DBIL, PHOS #### [facility] [address] [place] [address] Dr. Sarmad Patino ALT [Catalytic activity/Vol] 108 U/L Critically high 14-59 [facility] Comment on above: Performed By: #### U MAXI, LIPID, MG, CMP, DBIL, PHOS #### [facility] [address] [place] [address] Dr. Sarmad Patino Anion gap [Moles/Vol] 8.3 mmol/L Normal [facility] Comment on above: Performed By: #### U MAXI, LIPID, MG, CMP, DBIL, PHOS #### [facility] [address] [place] [address] Dr. Sarmad Patino AST [Catalytic activity/Vol] 59 U/L Critically high 15-37 [facility] Comment on above: Performed By: #### U MAXI, LIPID, MG, CMP, DBIL, PHOS #### [facility] [address] [place] [address] Dr. Sarmad Patino Bilirubin [Mass/Vol] 0.6 mg/dL Normal 0.2-1.0 [facility] Comment on above: Performed By: #### U MAXI, LIPID, MG, CMP, DBIL, PHOS #### [facility] [address] [address] [address] Sarmad Patino Calcium [Mass/Vol] 9.0 mg/dL Normal 8.5-10.1 [facility] Comment on above: Performed By: #### U MAXI, LIPID, MG, CMP, DBIL, PHOS #### [facility] [address] [place] [address] Dr. Sarmad Patino Chloride [Moles/Vol] 100 mmol/L Normal 98-107 [facility] Comment on above: Performed By: #### U MAXI, LIPID, MG, CMP, DBIL, PHOS #### [facility] [address] [place] [address] Dr. Sarmad Patino CO2 [Moles/Vol] 29.0 mmol/L Normal 21.0-32.0 [facility] Comment on above: Performed By: #### U MAXI, LIPID, MG, CMP, DBIL, PHOS #### [facility] [address] [place] [address] Dr. Sarmad Patino Creatinine [Mass/Vol] 1.05 mg/dL Critically high 0.55-1.02 [facility] Comment on above: Performed By: #### U MAXI, LIPID, MG, CMP, DBIL, PHOS #### [facility] [address] [place] [address] Dr. Sarmad Patino EGFR-AF MALAWIAN >60 Normal >=60 [facility] Comment on above: Performed By: #### U MAXI, LIPID, MG, CMP, DBIL, PHOS #### [facility] [address] [place] [address] Dr. Sarmad Patino EGFR-NON AF MALAWIAN 53 mL/min/1.73m2 Critically low >=60 [facility] Comment on above: Performed By: #### U MAXI, LIPID, MG, CMP, DBIL, PHOS #### [facility] [address] [place] [address] Dr. Sarmad Patino Globulin (S) [Mass/Vol] 4.6 g/dL Normal [facility] Comment on above: Performed By: #### U MAXI, LIPID, MG, CMP, DBIL, PHOS #### [facility] [address] [address] [address] Sarmad Patino Glucose [Mass/Vol] 154 mg/dL Critically high 74-106 T [facility] Comment on above: Performed By: #### U MAXI, LIPID, MG, CMP, DBIL, PHOS #### [facility] [address] [address] [address] Sarmad Patino Potassium [Moles/Vol] 3.3 mmol/L Critically low 3.5-5.1 [facility] Comment on above: Performed By: #### U MAXI, LIPID, MG, CMP, DBIL, PHOS #### [facility] [address] [place] [address] Dr. Sarmad Patino Protein [Mass/Vol] 7.1 g/dL Normal 6.4-8.2 [facility] Comment on above: Performed By: #### U MAXI, LIPID, MG, CMP, DBIL, PHOS #### [facility] [address] [place] [address] Dr. Sarmad Patino Sodium [Moles/Vol] 134 mmol/L Critically low 136-145 Th [facility] Comment on above: Performed By: #### U MAXI, LIPID, MG, CMP, DBIL, PHOS #### [facility] [address] [place] [address] Dr. Sarmad Patino Urea nitrogen [Mass/Vol] 24.0 mg/dL Critically high 7.0-18.0 [facility] Comment on above: Performed By: #### U MAXI, LIPID, MG, CMP, DBIL, PHOS #### [facility] [address] [place] [address] Dr. Sarmad Patino Urea nitrogen/Creatinine [Mass ratio] 22.9 mg/mg Normal [facility] Comment on above: Performed By: #### U MAXI, LIPID, MG, CMP, DBIL, PHOS #### [facility] [address] [place] [address] Dr. Sarmad Patino STREPT SCREENon 01-03-2022 STREP SCREEN A Negative Normal NEGATIVE [facility] Comment on above: Performed By: #### U MAXI, LIPID, MG, CMP, DBIL, PHOS #### [facility] [address] [address] [address] Sarmad Patino XR CHEST 2 Von [...] IMPRESSION: Bilateral pulmonary infiltrates, concerning for multifocal infectious/inflammato ry process; consider atypical infectious process such as COVID 19 pneumonia. Electronically authenticated by: MAYRA WHITESIDE Date: 2022-01-03 03:54 Normal [facility] Quick Strepon 12-28-2021 S. pyogenes Org specific cx Ql (Throat) Negative [employer] Other Quick Strep [employer] Other SARS-CoV-2 (COVID-19) RNA NA A+probe Ql (Resp)on 12-25-2021 SARS-CoV-2 (COVID-19) RNA MURALI+probe Ql (Unsp spec) Negative [employer] Other FK506 (TACROLIMUS) WHOLE BLO ODon 12-08-2021 Tacrolimus (FK506), Blood 6.6 ng/mL Normal 2.0-20.0 [facility] Comment on above: Result Comment: Trou gh (immediately following transplant) 15.0 . Trough (steady state, 2 weeks or more after transplant): 3.0 - 8.0 . Performed by LC-MS/MS technology. Performed By: #### D DAVIDSON, MG, PHOS, CMP, LIPID, URIC #### [facility] [address] [place], [place] [address] Dr. Sarmad Patino RAPAMUNE(SIROLIMUS)on 09-10- 2022 Rapamune(Sirolimus), whole blood 9.6 ng/mL Normal 3.0-20.0 [facility] Comment on above: Result Comment: Perf ormed by LC/MS-MS technology . This test was developed and its performance characteristics determined by [employer]. It has not been cleared or approved by the Food and Drug Administration. Performed By: #### D DAVIDSON, MG, PHOS, CMP, LIPID, URIC #### [facility] [address] [place] [address] Dr. Sarmad Patino BILIRUBIN CONJUGATED (DIRECT )on 12-05-2021 BILI, CONJUGATED 0.1 mg/dL Normal 0.0-0.[address] [facility] Comment on above: Performed By: #### D DAVIDSON, MG, PHOS, CMP, LIPID, URIC #### [facility] [address] [place] [address] Dr. Sarmad Patino CBC W MANUAL DIFFon 12-06-19 22 ATYPICAL LYMPH # Normal [facility] Comment on above: Performed By: #### D DAVIDSON, MG, PHOS, CMP, LIPID, URIC #### [facility] [address] [place] [address] Dr. Sarmad Patino ATYPICAL LYMPH % Normal [facility] Comment on above: Performed By: #### D DAVIDSON, MG, PHOS, CMP, LIPID, URIC #### [facility] [address] [place] [address] Dr. Sarmad Patino BAND # Normal 0.0-0.3 [facility] Comment on above: Performed By: #### D DAVIDSON, MG, PHOS, CMP, LIPID, URIC #### [facility] [address] [place] [address] Dr. Sarmad Patino BAND % Normal 0-5 [facility] Comment on above: Performed By: #### D DAVIDSON, MG, PHOS, CMP, LIPID, URIC #### [facility] [address] [place] [address] Dr. Sarmad Patino BASOM # 0.00 103/ul Normal 0.00-0.10 [facility] Comment on above: Performed By: #### D DAVIDSON, MG, PHOS, CMP, LIPID, URIC #### [facility] [address] [address] [address] Sarmad Patino BASOM % 0.0 % Critically low 0.2-2.0 [facility] Comment on above: Performed By: #### D DAVIDSON, MG, PHOS, CMP, LIPID, URIC #### [facility] [address] [address] [address] Sarmad Patino BLAST # Normal [facility] Comment on above: Performed By: #### D DAVIDSON, MG, PHOS, CMP, LIPID, URIC #### [facility] [address] [address] [address] Sarmad Patino BLAST % Normal [facility] Comment on above: Performed By: #### D DAVIDSON, MG, PHOS, CMP, LIPID, URIC #### [facility] [address] [address] [address] Sarmad Patino CORRECTED WBC Normal 4.0-11.0 [facility] Comment on above: Performed By: #### D DAVIDSON, MG, PHOS, CMP, LIPID, URIC #### [facility] [address] [address] [address] Sarmad Patino EOS # 0.15 103/ul Normal 0.00-0.70 [facility] Comment on above: Performed By: #### D DAVIDSON, MG, PHOS, CMP, LIPID, URIC #### [facility] [address] [address] [address] Sarmad Patino EOS% 2.0 % Normal 0.9-7.0 [facility] Comment on above: Performed By: #### D DAVIDSON, MG, PHOS, CMP, LIPID, URIC #### [facility] [address] [address] [address] Sarmad Patino HCT 47.5 % Normal 36.0-48.0 [facility] Comment on above: Performed By: #### D DAVIDSON, MG, PHOS, CMP, LIPID, URIC #### [facility] [address] [place] [address] Dr. Sarmad Patino HGB 15.6 g/dl Normal 12.0-16.0 [facility] Comment on above: Performed By: #### D DAVIDSON, MG, PHOS, CMP, LIPID, URIC #### [facility] [address] [address] [address] Sarmad Patino LYMPHM # 1.46 103/ul Normal 1.20-3.80 [facility] Comment on above: Performed By: #### D DAVIDSON, MG, PHOS, CMP, LIPID, URIC #### [facility] [address] [address] [address] Sarmad Patino LYMPHM% 19.0 % Critically low 20.5-60.0 [facility] Comment on above: Performed By: #### D DAVIDSON, MG, PHOS, CMP, LIPID, URIC #### [facility] [address] [place] [address] Dr. Sarmad Patino MCH 28.9 pg Normal 26.7-34.0 [facility] Comment on above: Performed By: #### D DAVIDSON, MG, PHOS, CMP, LIPID, URIC #### [facility] [address] [place] [address] Dr. Sarmad Patino MCHC 32.8 g/dl Normal 29.9-35.2 [facility] Comment on above: Performed By: #### D DAVIDSON, MG, PHOS, CMP, LIPID, URIC #### [facility] [address] [place] [address] Dr. Sarmad Patino MCV 88.1 fL Normal 81.0-99.0 [facility] Comment on above: Performed By: #### D DAVIDSON, MG, PHOS, CMP, LIPID, URIC #### [facility] [address] [place] [address] Dr. Sarmad Patino METAMYELOCYTE # Normal [facility] Comment on above: Performed By: #### D DAVIDSON, MG, PHOS, CMP, LIPID, URIC #### [facility] [address] [place] [address] Dr. Sarmad Patino METAMYELOCYTE % Normal [facility] Comment on above: Performed By: #### D DAVIDSON, MG, PHOS, CMP, LIPID, URIC #### [facility] [address] [address] [address] Sarmad Patino MONOM# 0.85 103/ul Critically high 0.30-0.80 [facility] Comment on above: Performed By: #### D DAVIDSON, MG, PHOS, CMP, LIPID, URIC #### [facility] [address] [place] [address] Dr. Sarmad Patino MONOM% 11.0 % Normal 1.7-12.0 [facility] Comment on above: Performed By: #### D DAVIDSON, MG, PHOS, CMP, LIPID, URIC #### [facility] [address] [place] [address] Dr. Sarmad Patino MPV 11.3 fL Normal 9.5-13.5 [facility] Comment on above: Performed By: #### D DAVIDSON, MG, PHOS, CMP, LIPID, URIC #### [facility] [address] [place] [address] Dr. Sarmad Patino MYELOCYTE # Normal [facility] Comment on above: Performed By: #### D DAVIDSON, MG, PHOS, CMP, LIPID, URIC #### [facility] [address] [place] [address] Dr. Sarmad Patino MYELOCYTE % Normal [facility] Comment on above: Performed By: #### D DAVIDSON, MG, PHOS, CMP, LIPID, URIC #### [facility] [address] [place] [address] Dr. Sarmad Patino NRBC Normal [facility] Comment on above: Performed By: #### D DAVIDSON, MG, PHOS, CMP, LIPID, URIC #### [facility] [address] [place] [address] Dr. Sarmad Patino PLT 214 103/ul Normal 150-450 [facility] Comment on above: Performed By: #### D DAVIDSON, MG, PHOS, CMP, LIPID, URIC #### [facility] [address] [place] [address] Dr. Sarmad Patino RBC 5.39 106/ul Normal 4.20-5.40 [facility] Comment on above: Performed By: #### D DAVIDSON, MG, PHOS, CMP, LIPID, URIC #### [facility] [address] [address] [address] Sarmad Patino RDW 13.8 % Normal 11.0-15.0 [facility] Comment on above: Performed By: #### D DAVIDSON, MG, PHOS, CMP, LIPID, URIC #### [facility] [address] [address] [address] Sarmad Patino SEG # 5.24 103/ul Normal 1.40-6.50 [facility] Comment on above: Performed By: #### D DAVIDSON, MG, PHOS, CMP, LIPID, URIC #### [facility] [address] [place] [address] Dr. Sarmad Patino SEG % 68.0 % Normal 43.0-75.0 [facility] Comment on above: Performed By: #### D DAVIDSON, MG, PHOS, CMP, LIPID, URIC #### [facility] [address] [place] [address] Dr. Sarmad Patino WBC 7.7 103/ul Normal 4.0-11.0 [facility] Comment on above: Performed By: #### D DAVIDSON, MG, PHOS, CMP, LIPID, URIC #### [facility] [address] [place] [address] Dr. Sarmad Patino LIPID PROFILEon 12-05-2021 CHOL-HDL RATIO NORM SEE BELOW Normal [facility] Comment on above: Result Comment: 3.3 - 4.4 LOW RISK 4.4 - 7.1 AVERAGE RISK 7.1 - 11.0 MODERATE RISK >11.0 HIGH RISK Performed By: #### D DAVIDSON, MG, PHOS, CMP, LIPID, URIC #### [facility] [address] [place] [address] Dr. Sarmad Patino Cholesterol [Mass/Vol] 170 mg/dL Normal <=200 [facility] Comment on above: Performed By: #### D DAVIDSON, MG, PHOS, CMP, LIPID, URIC #### [facility] [address] [place] [address] Dr. Sarmad Patino Cholesterol in HDL [Mass/Vol] 54 mg/dL Normal 40-60 [facility] Comment on above: Performed By: #### D DAVIDSON, MG, PHOS, CMP, LIPID, URIC #### [facility] [address] [address] [address] Sarmad Patino Cholesterol in LDL [Mass/Vol] 92.2 mg/dL Normal [facility] Comment on above: Performed By: #### D DAVIDSON, MG, PHOS, CMP, LIPID, URIC #### [facility] [address] [address] [address] Sarmad Patino Cholesterol.total/Cho lesterol in HDL [Mass ratio] 3.1 {ratio} Normal [facility] Comment on above: Performed By: #### D DAVIDSON, MG, PHOS, CMP, LIPID, URIC #### [facility] [address] [address] [address] Sarmad Patino HDL NORMAL > or = 60 mg/dl - LO W CARDIOVASCULAR RISK <40 mg/dl - HIGH CARDIOVASCULAR RISK Normal [facility] Comment on above: Performed By: #### D DAVIDSON, MG, PHOS, CMP, LIPID, URIC #### [facility] [address] [address] [address] Sarmad Patino LDL CALC NORMAL SEE BELOW Normal [facility] Comment on above: Result Comment: <100 mg/dl OPTIMAL 100 - 129 mg/dl NEAR OR ABOVE OPTIMAL 130 - 159 mg/dl BORDERLINE HIGH 160 - 189 mg/dl HIGH >190 mg/dl VERY HIGH Performed By: #### D DAVIDSON, MG, PHOS, CMP, LIPID, URIC #### [facility] [address] [address] [address] Sarmad Patino Triglyceride [Mass/Vol] 119 mg/dL Normal <=150 [facility] Comment on above: Performed By: #### D DAVIDSON, MG, PHOS, CMP, LIPID, URIC #### [facility] [address] [address] [address] Sarmad Patino VLDL CALC 23.8 mg/dL Normal [facility] Comment on above: Performed By: #### D DAVIDSON, MG, PHOS, CMP, LIPID, URIC #### [facility] [address] [address] [address] Sarmad Patino MAGNESIUMon 09-07-2022 Magnesium [Mass/Vol] 1.8 mg/dL Normal 1.8-2.4 [facility] Comment on above: Performed By: #### D DAVIDSON, MG, PHOS, CMP, LIPID, URIC #### [facility] [address] [address] [address] Sarmad Patino PHOSPHORUSon 12-05-2021 Phosphate [Mass/Vol] 3.8 mg/dL Normal 2.6-4.7 [facility] Comment on above: Performed By: #### D DAVIDSON, MG, PHOS, CMP, LIPID, URIC #### [facility] [address] [address] [address] Sarmad Patino PROF 14(COMP METB)on 022 Albumin [Mass/Vol] 3.7 g/dL Normal 3.4-5.0 [facility] Comment on above: Performed By: #### D DAVIDSON, MG, PHOS, CMP, LIPID, URIC #### [facility] [address] [place] [address] Dr. Sarmad Patino Albumin/Globulin [Mass ratio] 1.0 {ratio} Normal [facility] Comment on above: Performed By: #### D DAVIDSON, MG, PHOS, CMP, LIPID, URIC #### [facility] [address] [place] [address] Dr. Sarmad Patino ALP [Catalytic activity/Vol] 151 U/L Critically high 46-116 [facility] Comment on above: Performed By: #### D DAVIDSON, MG, PHOS, CMP, LIPID, URIC #### [facility] [address] [place] [address] Dr. Sarmad Patino ALT [Catalytic activity/Vol] 27 U/L Normal 14-59 [facility] Comment on above: Performed By: #### D DAVIDSON, MG, PHOS, CMP, LIPID, URIC #### [facility] [address] [place] [address] Dr. Sarmad Patino Anion gap [Moles/Vol] 14.5 mmol/L Normal [facility] Comment on above: Performed By: #### D DAVIDSON, MG, PHOS, CMP, LIPID, URIC #### [facility] [address] [address] [address] Sarmad Patino AST [Catalytic activity/Vol] 25 U/L Normal 15-37 [facility] Comment on above: Performed By: #### D DAVIDSON, MG, PHOS, CMP, LIPID, URIC #### [facility] [address] [address] [address] Sarmad Patino Bilirubin [Mass/Vol] 0.4 mg/dL Normal 0.2-1.0 [facility] Comment on above: Performed By: #### D DAVIDSON, MG, PHOS, CMP, LIPID, URIC #### [facility] [address] [address] [address] Sarmad Patino Calcium [Mass/Vol] 9.4 mg/dL Normal 8.5-10.1 [facility] Comment on above: Performed By: #### D DAVIDSON, MG, PHOS, CMP, LIPID, URIC #### [facility] [address] [address] [address] Sarmad Patino Chloride [Moles/Vol] 103 mmol/L Normal 98-107 [facility] Comment on above: Performed By: #### D DAVIDSON, MG, PHOS, CMP, LIPID, URIC #### [facility] [address] [place] [address] Dr. Sarmad Patino CO2 [Moles/Vol] 26.5 mmol/L Normal 21.0-32.[address] [facility] Comment on above: Performed By: #### D DAVIDSON, MG, PHOS, CMP, LIPID, URIC #### [facility] [address] [place] [address] Dr. Sarmad Patino Creatinine [Mass/Vol] 0.87 mg/dL Normal 0.55-1.02 [facility] Comment on above: Performed By: #### D DAVIDSON, MG, PHOS, CMP, LIPID, URIC #### [facility] [address] [address] [address] Sarmad Patino EGFR-AF MALAWIAN >60 Normal >=[address] [facility] Comment on above: Performed By: #### D DAVIDSON, MG, PHOS, CMP, LIPID, URIC #### [facility] [address] [address] [address] Sarmad Patino EGFR-NON AF MALAWIAN >60 Normal >=60 [facility] Comment on above: Performed By: #### D DAVIDSON, MG, PHOS, CMP, LIPID, URIC #### [facility] [address] [place] [address] Dr. Sarmad Patino Globulin (S) [Mass/Vol] 3.8 g/dL Normal [facility] Comment on above: Performed By: #### D DAVIDSON, MG, PHOS, CMP, LIPID, URIC #### [facility] [address] [address] [address] Sarmad Patino Glucose [Mass/Vol] 104 mg/dL Normal 74-[address] [facility] Comment on above: Performed By: #### D DAVIDSON, MG, PHOS, CMP, LIPID, URIC #### [facility] [address] [place] [address] Dr. Sarmad Patino Potassium [Moles/Vol] 4.0 mmol/L Normal 3.5-5.1 [facility] Comment on above: Performed By: #### D DAVIDSON, MG, PHOS, CMP, LIPID, URIC #### [facility] [address] [place] [address] Dr. Sarmad Patino Protein [Mass/Vol] 7.5 g/dL Normal 6.4-8.[address] [facility] Comment on above: Performed By: #### D DAVIDSON, MG, PHOS, CMP, LIPID, URIC #### [facility] [address] [place] [address] Dr. Sarmad Patino Sodium [Moles/Vol] 140 mmol/L Normal 136-[address] [facility] Comment on above: Performed By: #### D DAVIDSON, MG, PHOS, CMP, LIPID, URIC #### [facility] [address] [place] [address] Dr. Sarmad Patino Urea nitrogen [Mass/Vol] 19.0 mg/dL Critically high 7.0-18.0 [facility] Comment on above: Performed By: #### D DAVIDSON, MG, PHOS, CMP, LIPID, URIC #### [facility] [address] [address] [address] Sarmad Patino Urea nitrogen/Creatinine [Mass ratio] 21.8 mg/mg Normal [facility] Comment on above: Performed By: #### D DAVIDSON, MG, PHOS, CMP, LIPID, URIC #### [facility] [address] [place] [address] Dr. Sarmad Patino URIC ACID SERUMon 12-05-2021 Urate [Mass/Vol] 5.2 mg/dL Normal 2.6-6.0 [facility] Comment on above: Performed By: #### D DAVIDSON, MG, PHOS, CMP, LIPID, URIC #### [facility] [address] [place] [address] Dr. Sarmad SALAZAROLIMU, WHOLE BLOODon EVEROLIMUS 7.0 ng/mL Normal 3.0-8.0 [facility] Comment on above: Result Comment: Perf ormed by LC-MS/MS technology. Performed By: #### D DAVIDSON, MG, PHOS, CMP, LIPID, URIC #### [facility] [address] [place] [address] Dr. Sarmad Patino FK506 (TACROLIMUS) WHOLE BLO ODon 11-10-2021 Tacrolimus (FK506), Blood 6.4 ng/mL Normal 2.0-20.0 [facility] Comment on above: Result Comment: Trou gh (immediately following transplant) 15.0 . Trough (steady state, 2 weeks or more after transplant): 3.0 - 8.0 . Performed by LC-MS/MS technology. Performed By: #### D DAVIDSON, MG, PHOS, CMP, LIPID, URIC #### [facility] [address] [place] [address] Dr. Sarmad Patino BK VIRUS PCR QUANTon 022 BKV DNA QUANT PCR PLASMA Negative Normal Negative [facility] Comment on above: Result Comment: No B K DNA detected. . The linear range of the assay is 22 - 100,000,000 IU/mL. Performed By: #### U MAXI, LIPID, MG, CMP, DBIL, PHOS #### [facility] [address] [address] [address] Sarmad Patino Log10 BKV DNA Plasma Normal [facility] Comment on above: Performed By: #### U MAXI, LIPID, MG, CMP, DBIL, PHOS #### [facility] [address] [place] [address] Dr. Sarmad Patino BILIRUBIN CONJUGATED (DIRECT )on 11-07-2021 BILI, CONJUGATED 0.1 mg/dL Normal 0.0-0.[address] [facility] Comment on above: Performed By: #### D DAVIDSON, MG, PHOS, CMP, LIPID, URIC #### [facility] [address] [place] [address] Dr. Sarmad Patino CBC AUTO DIFFon 11-07-2021 BASO # 0.0 103/ul Normal 0.0-0.1 [facility] Comment on above: Performed By: #### D DAVIDSON, MG, PHOS, CMP, LIPID, URIC #### [facility] [address] [place] [address] Dr. Sarmad Patino Basophils/100 WBC (Bld) 0.3 % Normal 0.2-2.0 [facility] Comment on above: Performed By: #### D DAVIDSON, MG, PHOS, CMP, LIPID, URIC #### [facility] [address] [address] [address] Sarmad Patino EO # 0.1 103/ul Normal 0.0-0.7 [facility] Comment on above: Performed By: #### D DAVIDSON, MG, PHOS, CMP, LIPID, URIC #### [facility] [address] [place] [address] Dr. Sarmad Patino Eosinophils/100 WBC (Bld) 2.1 % Normal 0.9-7.0 [facility] Comment on above: Performed By: #### D DAVIDSON, MG, PHOS, CMP, LIPID, URIC #### [facility] [address] [place] [address] Dr. Sarmad Patino Erythrocyte distribution width (RBC) [Ratio] 13.5 % Normal 11.0-15.0 [facility] Comment on above: Performed By: #### D DAVIDSON, MG, PHOS, CMP, LIPID, URIC #### [facility] [address] [place] [address] Dr. Sarmad Patino Hematocrit (Bld) [Volume fraction] 46.7 % Normal 36.0-48.0 [facility] Comment on above: Performed By: #### D DAVIDSON, MG, PHOS, CMP, LIPID, URIC #### [facility] [address] [place] [address] Dr. Sarmad Patino Hemoglobin (Bld) [Mass/Vol] 15.1 g/dL Normal 12.0-16.0 [facility] Comment on above: Performed By: #### D DAVIDSON, MG, PHOS, CMP, LIPID, URIC #### [facility] [address] [place] [address] Dr. Sarmad Patino IG # 0.03 10e3/ul Normal 0.00-0.03 [facility] Comment on above: Performed By: #### D DAVIDSON, MG, PHOS, CMP, LIPID, URIC #### [facility] [address] [place] [address] Dr. Sarmad Patino IG % 0.5 % Normal 0.0-0.5 [facility] Comment on above: Performed By: #### D DAVIDSON, MG, PHOS, CMP, LIPID, URIC #### [facility] [address] [place] [address] Dr. Sarmad Patino LYMPH # 1.3 103/ul Normal 1.2-3.8 [facility] Comment on above: Performed By: #### D DAVIDSON, MG, PHOS, CMP, LIPID, URIC #### [facility] [address] [place] [address] Dr. Sarmad Patino Lymphocytes/100 WBC (Bld) 19.9 % Critically low 20.5-60.0 [facility] Comment on above: Performed By: #### D DAVIDSON, MG, PHOS, CMP, LIPID, URIC #### [facility] [address] [place] [address] Dr. Sarmad Patino MANUAL DIFF REQ NO Normal [facility] Comment on above: Performed By: #### D DAVIDSON, MG, PHOS, CMP, LIPID, URIC #### [facility] [address] [place] [address] Dr. Sarmad Patino MCH (RBC) [Entitic mass] 28.6 pg Normal 26.7-34.0 [facility] Comment on above: Performed By: #### D DAVIDSON, MG, PHOS, CMP, LIPID, URIC #### [facility] [address] [place] [address] Dr. Sarmad Patino MCHC (RBC) [Mass/Vol] 32.3 g/dL Normal 29.9-35.2 [facility] Comment on above: Performed By: #### D DAVIDSON, MG, PHOS, CMP, LIPID, URIC #### [facility] [address] [place] [address] Dr. Sarmad Patino MCV (RBC) [Entitic vol] 88.4 fL Normal 81.0-99.0 [facility] Comment on above: Performed By: #### D DAVIDSON, MG, PHOS, CMP, LIPID, URIC #### [facility] [address] [place] [address] Dr. Sarmad Patino MONO # 0.8 103/ul Normal 0.3-0.8 [facility] Comment on above: Performed By: #### D DAVIDSON, MG, PHOS, CMP, LIPID, URIC #### [facility] [address] [place] [address] Dr. Sarmad Patino Monocytes/100 WBC (Bld) 12.9 % Critically high 1.7-12.0 [facility] Comment on above: Performed By: #### D DAVIDSON, MG, PHOS, CMP, LIPID, URIC #### [facility] [address] [place] [address] Dr. Sarmad Patino NEUT # 4.0 103/ul Normal 1.4-6.5 [facility] Comment on above: Performed By: #### D DAVIDSON, MG, PHOS, CMP, LIPID, URIC #### [facility] [address] [place] [address] Dr. Sarmad Patino Neutrophils/100 WBC (Bld) 64.3 % Normal 43.0-75.0 [facility] Comment on above: Performed By: #### D DAVIDSON, MG, PHOS, CMP, LIPID, URIC #### [facility] [address] [address] [address] Sarmad Patino Platelet mean volume (Bld) [Entitic vol] 11.3 fL Normal 9.5-13.5 [facility] Comment on above: Performed By: #### D DAVIDSON, MG, PHOS, CMP, LIPID, URIC #### [facility] [address] [address] [address] Sarmad Patino PLT 241 103/ul Normal 150-450 [facility] Comment on above: Performed By: #### D DAVIDSON, MG, PHOS, CMP, LIPID, URIC #### [facility] [address] [address] [address] Sarmad Patino RBC 5.28 106/ul Normal 4.20-5.40 [facility] Comment on above: Performed By: #### D DAVIDSON, MG, PHOS, CMP, LIPID, URIC #### [facility] [address] [place] [address] Dr. Sarmad Patino WBC 6.3 103/ul Normal 4.0-11.0 [facility] Comment on above: Performed By: #### D DAVIDSON, MG, PHOS, CMP, LIPID, URIC #### [facility] [address] [place] [address] Dr. Sarmad Patino GLYCOHEMOGLOBIN A1Con 2021 ADA RECOMMENDATION SEE BELOW Normal [facility] Comment on above: Result Comment: ADA RECOMMENDED LIMIT 4.0 - 6.0 ADA THERAPEUTIC TARGET < 7.0 ACTION SUGGESTED > 7.0 Performed By: #### D DAVIDSON, MG, PHOS, CMP, LIPID, URIC #### [facility] [address] [address] [address] Sarmad Patino Glucose [Mass/Vol] 120 mg/dL Normal [facility] Comment on above: Performed By: #### D DAVIDSON, MG, PHOS, CMP, LIPID, URIC #### [facility] [address] [address] [address] Sarmad Patino HbA1c (Bld) [Mass fraction] 5.8 % Normal 4.5-6.2 [facility] Comment on above: Performed By: #### D DAVIDSON, MG, PHOS, CMP, LIPID, URIC #### [facility] [address] [address] [address] Sarmad Patino LIPID PROFILEon 11-07-2021 CHOL-HDL RATIO NORM SEE BELOW Normal [facility] Comment on above: Result Comment: 3.3 - 4.4 LOW RISK 4.4 - 7.1 AVERAGE RISK 7.1 - 11.0 MODERATE RISK >11.0 HIGH RISK Performed By: #### D DAVIDSON, MG, PHOS, CMP, LIPID, URIC #### [facility] [address] [address] [address] Sarmad Patino Cholesterol [Mass/Vol] 157 mg/dL Normal <=200 [facility] Comment on above: Performed By: #### D DAVIDSON, MG, PHOS, CMP, LIPID, URIC #### [facility] [address] [place] [address] Dr. Sarmad Patino Cholesterol in HDL [Mass/Vol] 48 mg/dL Normal 40-60 [facility] Comment on above: Performed By: #### D DAVIDSON, MG, PHOS, CMP, LIPID, URIC #### [facility] [address] [address] [address] Sarmad Patino Cholesterol in LDL [Mass/Vol] 89.6 mg/dL Normal [facility] Comment on above: Performed By: #### D DAVIDSON, MG, PHOS, CMP, LIPID, URIC #### [facility] [address] [place] [address] Dr. Sarmad Patino Cholesterol.total/Cho lesterol in HDL [Mass ratio] 3.3 {ratio} Normal [facility] Comment on above: Performed By: #### D DAVIDSON, MG, PHOS, CMP, LIPID, URIC #### [facility] [address] [place] [address] Dr. Sarmad Patino HDL NORMAL > or = 60 mg/dl - LO W CARDIOVASCULAR RISK <40 mg/dl - HIGH CARDIOVASCULAR RISK Normal [facility] Comment on above: Performed By: #### D DAVIDSON, MG, PHOS, CMP, LIPID, URIC #### [facility] [address] [address] [address] Sarmad Patino LDL CALC NORMAL SEE BELOW Normal [facility] Comment on above: Result Comment: <100 mg/dl OPTIMAL 100 - 129 mg/dl NEAR OR ABOVE OPTIMAL 130 - 159 mg/dl BORDERLINE HIGH 160 - 189 mg/dl HIGH >190 mg/dl VERY HIGH Performed By: #### D DAVIDSON, MG, PHOS, CMP, LIPID, URIC #### [facility] [address] [address] [address] Sarmad Patino Triglyceride [Mass/Vol] 97 mg/dL Normal <=150 [facility] Comment on above: Performed By: #### D DAVIDSON, MG, PHOS, CMP, LIPID, URIC #### [facility] [address] [place] [address] Dr. Sarmad Patino VLDL CALC 19.4 mg/dL Normal [facility] Comment on above: Performed By: #### D DAVIDSON, MG, PHOS, CMP, LIPID, URIC #### [facility] [address] [place] [address] Dr. Sarmad Patino MAGNESIUMon 11-07-2021 Magnesium [Mass/Vol] 1.9 mg/dL Normal 1.8-2.4 [facility] Comment on above: Performed By: #### D DAVIDSON, MG, PHOS, CMP, LIPID, URIC #### [facility] [address] [place] [address] Dr. Sarmad Patino PHOSPHORUSon 11-07-2021 Phosphate [Mass/Vol] 3.4 mg/dL Normal 2.6-4.7 [facility] Comment on above: Performed By: #### D DAVIDSON, MG, PHOS, CMP, LIPID, URIC #### [facility] [address] [place] [address] Dr. Sarmad Patino PROF 14(COMP METB)on 022 Albumin [Mass/Vol] 3.6 g/dL Normal 3.4-5.0 [facility] Comment on above: Performed By: #### D DAVIDSON, MG, PHOS, CMP, LIPID, URIC #### [facility] [address] [place] [address] Dr. Sarmad Patino Albumin/Globulin [Mass ratio] 0.9 {ratio} Normal [facility] Comment on above: Performed By: #### D DAVIDSON, MG, PHOS, CMP, LIPID, URIC #### [facility] [address] [address] [address] Sarmad Patino ALP [Catalytic activity/Vol] 158 U/L Critically high 46-116 [facility] Comment on above: Performed By: #### D DAVIDSON, MG, PHOS, CMP, LIPID, URIC #### [facility] [address] [place] [address] Dr. Sarmad Patino ALT [Catalytic activity/Vol] 23 U/L Normal 14-59 [facility] Comment on above: Performed By: #### D DAVIDSON, MG, PHOS, CMP, LIPID, URIC #### [facility] [address] [place] [address] Dr. Sarmad Patino Anion gap [Moles/Vol] 14.8 mmol/L Normal [facility] Comment on above: Performed By: #### D DAVIDSON, MG, PHOS, CMP, LIPID, URIC #### [facility] [address] [place] [address] Dr. Sarmad Patino AST [Catalytic activity/Vol] 18 U/L Normal 15-37 [facility] Comment on above: Performed By: #### D DAVIDSON, MG, PHOS, CMP, LIPID, URIC #### [facility] [address] [place] [address] Dr. Sarmad Ptaino Bilirubin [Mass/Vol] 0.4 mg/dL Normal 0.2-1.0 [facility] Comment on above: Performed By: #### D DAVIDSON, MG, PHOS, CMP, LIPID, URIC #### [facility] [address] [place] [address] Dr. Sarmad Patino Calcium [Mass/Vol] 9.3 mg/dL Normal 8.5-10.1 [facility] Comment on above: Performed By: #### D DAVIDSON, MG, PHOS, CMP, LIPID, URIC #### [facility] [address] [place] [address] Dr. Sarmad Patino Chloride [Moles/Vol] 105 mmol/L Normal 98-107 [facility] Comment on above: Performed By: #### D DAVIDSON, MG, PHOS, CMP, LIPID, URIC #### [facility] [address] [address] [address] Sarmad Patino CO2 [Moles/Vol] 26.1 mmol/L Normal 21.0-32.0 [facility] Comment on above: Performed By: #### D DAVIDSON, MG, PHOS, CMP, LIPID, URIC #### [facility] [address] [place] [address] Dr. Sarmad Patino Creatinine [Mass/Vol] 0.84 mg/dL Normal 0.55-1.02 [facility] Comment on above: Performed By: #### D DAVIDSON, MG, PHOS, CMP, LIPID, URIC #### [facility] [address] [place] [address] Dr. Sarmad Patino EGFR-AF MALAWIAN >60 Normal >=60 [facility] Comment on above: Performed By: #### D DAVIDSON, MG, PHOS, CMP, LIPID, URIC #### [facility] [address] [place] [address] Dr. Sarmad Patino EGFR-NON AF MALAWIAN >60 Normal >=60 [facility] Comment on above: Performed By: #### D DAVIDSON, MG, PHOS, CMP, LIPID, URIC #### [facility] [address] [place] [address] Dr. Sarmad Patino Globulin (S) [Mass/Vol] 3.8 g/dL Normal [facility] Comment on above: Performed By: #### D DAVIDSON, MG, PHOS, CMP, LIPID, URIC #### [facility] [address] [place] [address] Dr. Sarmad Patino Glucose [Mass/Vol] 97 mg/dL Normal 74-106 [facility] Comment on above: Performed By: #### D DAVIDSON, MG, PHOS, CMP, LIPID, URIC #### [facility] [address] [place] [address] Dr. Sarmad Patino Potassium [Moles/Vol] 3.9 mmol/L Normal 3.5-5.1 [facility] Comment on above: Performed By: #### D DAVIDSON, MG, PHOS, CMP, LIPID, URIC #### [facility] [address] [place] [address] Dr. Sarmad Patino Protein [Mass/Vol] 7.4 g/dL Normal 6.4-8.[address] [facility] Comment on above: Performed By: #### D DAVIDSON, MG, PHOS, CMP, LIPID, URIC #### [facility] [address] [place] [address] Dr. Sarmad Patino Sodium [Moles/Vol] 142 mmol/L Normal 136-[address] [facility] Comment on above: Performed By: #### D DAVIDSON, MG, PHOS, CMP, LIPID, URIC #### [facility] [address] [place] [address] Dr. Sarmad Patino Urea nitrogen [Mass/Vol] 21.0 mg/dL Critically high 7.0-18.0 [facility] Comment on above: Performed By: #### D DAVIDSON, MG, PHOS, CMP, LIPID, URIC #### [facility] [address] [place] [address] Dr. Sarmad Patino Urea nitrogen/Creatinine [Mass ratio] 25.0 mg/mg Normal [facility] Comment on above: Performed By: #### D DAVIDSON, MG, PHOS, CMP, LIPID, URIC #### [facility] [address] [place] [address] Dr. Sarmad Patino URIC ACID SERUMon 11-07-2021 Urate [Mass/Vol] 5.1 mg/dL Normal 2.6-6.[address] [facility] Comment on above: Performed By: #### D DAVIDSON, MG, PHOS, CMP, LIPID, URIC #### [facility] [address] [place] [address] Dr. Sarmad Patino BOX TEST SENT OUTon 10-16-19 22 SENT TO REF LAB 10/15/2021 Normal [facility] Comment on above: Performed By: #### D DAVIDSON, MG, PHOS, CMP, LIPID, URIC #### [facility] [address] [address] [address] Sarmad Patino EVEROLIMU, WHOLE BLOODon EVEROLIMUS 6.7 ng/mL Normal 3.0-8.0 [facility] Comment on above: Result Comment: Perf ormed by LC-MS/MS technology. Performed By: #### D DAVIDSON, MG, PHOS, CMP, LIPID, URIC #### [facility] [address] [place] [address] Dr. Sarmad Patino FK506 (TACROLIMUS) WHOLE BLO ODon 10-10-2021 Tacrolimus (FK506), Blood 5.9 ng/mL Normal 2.0-20.0 [facility] Comment on above: Result Comment: Trou gh (immediately following transplant) 15.0 . Trough (steady state, 2 weeks or more after transplant): 3.0 - 8.0 . Performed by LC-MS/MS technology. Performed By: #### D DAVIDSON, MG, PHOS, CMP, LIPID, URIC #### [facility] [address] [place] [address] Dr. Sarmad Patino BILIRUBIN CONJUGATED (DIRECT )on 10-08-2021 BILI, CONJUGATED 0.1 mg/dL Normal 0.0-0.[address] [facility] Comment on above: Performed By: #### U MAXI, LIPID, MG, CMP, DBIL, PHOS #### [facility] [address] [place] [address] Dr. Sarmad Patino CBC AUTO DIFFon 10-08-2021 BASO # 0.0 103/ul Normal 0.0-0.1 [facility] Comment on above: Performed By: #### D DAVIDSON, MG, PHOS, CMP, LIPID, URIC #### [facility] [address] [place] [address] Dr. Sarmad Patino Basophils/100 WBC (Bld) 0.1 % Critically low 0.2-2.0 [facility] Comment on above: Performed By: #### D DAVIDSON, MG, PHOS, CMP, LIPID, URIC #### [facility] [address] [place] [address] Dr. Sarmad Patino EO # 0.1 103/ul Normal 0.0-0.7 [facility] Comment on above: Performed By: #### D DAVIDSON, MG, PHOS, CMP, LIPID, URIC #### [facility] [address] [address] [address] Sarmad Patino Eosinophils/100 WBC (Bld) 1.4 % Normal 0.9-7.0 [facility] Comment on above: Performed By: #### D DAVIDSON, MG, PHOS, CMP, LIPID, URIC #### [facility] [address] [place] [address] Dr. Sarmad Patino Erythrocyte distribution width (RBC) [Ratio] 13.6 % Normal 11.0-15.0 [facility] Comment on above: Performed By: #### D DAVIDSON, MG, PHOS, CMP, LIPID, URIC #### [facility] [address] [place] [address] Dr. Sarmad Patino Hematocrit (Bld) [Volume fraction] 47.5 % Normal 36.0-48.0 [facility] Comment on above: Performed By: #### D DAVIDSON, MG, PHOS, CMP, LIPID, URIC #### [facility] [address] [place] [address] Dr. Sarmad Patino Hemoglobin (Bld) [Mass/Vol] 15.7 g/dL Normal 12.0-16.0 [facility] Comment on above: Performed By: #### D DAVIDSON, MG, PHOS, CMP, LIPID, URIC #### [facility] [address] [place] [address] Dr. Sarmad Patino IG # 0.04 10e3/ul Critically high 0.00-0.03 [facility] Comment on above: Performed By: #### D DAVIDSON, MG, PHOS, CMP, LIPID, URIC #### [facility] [address] [place] [address] Dr. Sarmad Patino IG % 0.5 % Normal 0.0-0.5 [facility] Comment on above: Performed By: #### D DAVIDSON, MG, PHOS, CMP, LIPID, URIC #### [facility] [address] [place], [place] [id number] Dr. Sarmad Patino LYMPH # 1.3 103/ul Normal 1.2-3.8 [facility] Comment on above: Performed By: #### D DAVIDSON, MG, PHOS, CMP, LIPID, URIC #### [facility] [address] [place] [address] Dr. Sarmad Patino Lymphocytes/100 WBC (Bld) 15.4 % Critically low 20.5-60.0 [facility] Comment on above: Performed By: #### D DAVIDSON, MG, PHOS, CMP, LIPID, URIC #### [facility] [address] [place] [address] Dr. Sarmad Patino MANUAL DIFF REQ NO Normal [facility] Comment on above: Performed By: #### D DAVIDSON, MG, PHOS, CMP, LIPID, URIC #### [facility] [address] [place] [address] Dr. Sarmad Patino MCH (RBC) [Entitic mass] 29.1 pg Normal 26.7-34.0 [facility] Comment on above: Performed By: #### D DAVIDSON, MG, PHOS, CMP, LIPID, URIC #### [facility] [address] [place] [address] Dr. Sarmad Patino MCHC (RBC) [Mass/Vol] 33.1 g/dL Normal 29.9-35.2 [facility] Comment on above: Performed By: #### D DAVIDSON, MG, PHOS, CMP, LIPID, URIC #### [facility] [address] [place] [address] Dr. Sarmad Patino MCV (RBC) [Entitic vol] 88.0 fL Normal 81.0-99.0 [facility] Comment on above: Performed By: #### D DAVIDSON, MG, PHOS, CMP, LIPID, URIC #### [facility] [address] [place] [address] Dr. Sarmad Patino MONO # 0.9 103/ul Critically high 0.3-0.8 [facility] Comment on above: Performed By: #### D DAVIDSON, MG, PHOS, CMP, LIPID, URIC #### [facility] [address] [address] [address] Sarmad Patino Monocytes/100 WBC (Bld) 10.2 % Normal 1.7-12.0 [facility] Comment on above: Performed By: #### D DAVIDSON, MG, PHOS, CMP, LIPID, URIC #### [facility] [address] [place] [address] Dr. Sarmad Patino NEUT # 6.1 103/ul Normal 1.4-6.5 [facility] Comment on above: Performed By: #### D DAVIDSON, MG, PHOS, CMP, LIPID, URIC #### [facility] [address] [place] [address] Dr. Sarmad Patino Neutrophils/100 WBC (Bld) 72.4 % Normal 43.0-75.0 [facility] Comment on above: Performed By: #### D DAVIDSON, MG, PHOS, CMP, LIPID, URIC #### [facility] [address] [place] [address] Dr. Sarmad Patino Platelet mean volume (Bld) [Entitic vol] 11.1 fL Normal 9.5-13.5 [facility] Comment on above: Performed By: #### D DAVIDSON, MG, PHOS, CMP, LIPID, URIC #### [facility] [address] [place] [address] Dr. Sarmad Patino PLT 213 103/ul Normal 150-450 [facility] Comment on above: Performed By: #### D DAVIDSON, MG, PHOS, CMP, LIPID, URIC #### [facility] [address] [place] [address] Dr. Sarmad Patino RBC 5.40 106/ul Normal 4.20-5.40 [facility] Comment on above: Performed By: #### D DAVIDSON, MG, PHOS, CMP, LIPID, URIC #### [facility] [address] [place] [address] Dr. Sarmad Patino WBC 8.4 103/ul Normal 4.0-11.0 [facility] Comment on above: Performed By: #### D DAVIDSON, MG, PHOS, CMP, LIPID, URIC #### [facility] [address] [address] [address] Sarmad Patino LIPID PROFILEon 10-08-2021 CHOL-HDL RATIO NORM SEE BELOW Normal [facility] Comment on above: Result Comment: 3.3 - 4.4 LOW RISK 4.4 - 7.1 AVERAGE RISK 7.1 - 11.0 MODERATE RISK >11.0 HIGH RISK Performed By: #### D DAVIDSON, MG, PHOS, CMP, LIPID, URIC #### [facility] [address] [address] [address] Sarmad Patino Cholesterol [Mass/Vol] 155 mg/dL Normal <=200 [facility] Comment on above: Performed By: #### D DAVIDSON, MG, PHOS, CMP, LIPID, URIC #### [facility] [address] [address] [address] Sarmad Patino Cholesterol in HDL [Mass/Vol] 49 mg/dL Normal 40-60 [facility] Comment on above: Performed By: #### D DAVIDSON, MG, PHOS, CMP, LIPID, URIC #### [facility] [address] [address] [address] Sarmad Patino Cholesterol in LDL [Mass/Vol] 73.8 mg/dL Normal [facility] Comment on above: Performed By: #### D DAVIDSON, MG, PHOS, CMP, LIPID, URIC #### [facility] [address] [address] [address] Sarmad Patino Cholesterol.total/Cho lesterol in HDL [Mass ratio] 3.2 {ratio} Normal [facility] Comment on above: Performed By: #### D DAVIDSON, MG, PHOS, CMP, LIPID, URIC #### [facility] [address] [address] [address] Sarmad Patino HDL NORMAL > or = 60 mg/dl - LO W CARDIOVASCULAR RISK <40 mg/dl - HIGH CARDIOVASCULAR RISK Normal [facility] Comment on above: Performed By: #### D DAVIDSON, MG, PHOS, CMP, LIPID, URIC #### [facility] [address] [address] [address] Sarmad Patino LDL CALC NORMAL SEE BELOW Normal [facility] Comment on above: Result Comment: <100 mg/dl OPTIMAL 100 - 129 mg/dl NEAR OR ABOVE OPTIMAL 130 - 159 mg/dl BORDERLINE HIGH 160 - 189 mg/dl HIGH >190 mg/dl VERY HIGH Performed By: #### D DAVIDSON, MG, PHOS, CMP, LIPID, URIC #### [facility] [address] [place] [address] Dr. Sarmad Patino Triglyceride [Mass/Vol] 161 mg/dL Critically high <=150 [facility] Comment on above: Performed By: #### D DAVIDSON, MG, PHOS, CMP, LIPID, URIC #### [facility] [address] [address] [address] Sarmad Patino VLDL CALC 32.2 mg/dL Normal [facility] Comment on above: Performed By: #### D DAVIDSON, MG, PHOS, CMP, LIPID, URIC #### [facility] [address] [place] [address] Dr. Sarmad Patino MAGNESIUMon 10-08-2021 Magnesium [Mass/Vol] 1.6 mg/dL Critically low 1.8-2.4 [facility] Comment on above: Performed By: #### U MAXI, LIPID, MG, CMP, DBIL, PHOS #### [facility] [address] [place] [address] Dr. Sarmad Patino PHOSPHORUSon 10-08-2021 Phosphate [Mass/Vol] 3.5 mg/dL Normal 2.6-4.7 [facility] Comment on above: Performed By: #### U MAXI, LIPID, MG, CMP, DBIL, PHOS #### [facility] [address] [place] [address] Dr. Sarmad Patino PROF 14(COMP METB)on 022 Albumin [Mass/Vol] 3.6 g/dL Normal 3.4-5.0 [facility] Comment on above: Performed By: #### D DAVIDSON, MG, PHOS, CMP, LIPID, URIC #### [facility] [address] [place] [address] Dr. Sarmad Patino Albumin/Globulin [Mass ratio] 0.9 {ratio} Normal [facility] Comment on above: Performed By: #### D DAVIDSON, MG, PHOS, CMP, LIPID, URIC #### [facility] [address] [address] [address] Sarmad Patino ALP [Catalytic activity/Vol] 150 U/L Critically high 46-116 [facility] Comment on above: Performed By: #### D DAVIDSON, MG, PHOS, CMP, LIPID, URIC #### [facility] [address] [address] [address] Sarmad Patino ALT [Catalytic activity/Vol] 21 U/L Normal 14-59 [facility] Comment on above: Performed By: #### D DAVIDSON, MG, PHOS, CMP, LIPID, URIC #### [facility] [address] [place] [address] Dr. Sarmad Patino Anion gap [Moles/Vol] 14.0 mmol/L Normal [facility] Comment on above: Performed By: #### D DAVIDSON, MG, PHOS, CMP, LIPID, URIC #### [facility] [address] [address] [address] Sarmad Patino AST [Catalytic activity/Vol] 13 U/L Critically low 15-37 [facility] Comment on above: Performed By: #### D DAVIDSON, MG, PHOS, CMP, LIPID, URIC #### [facility] [address] [place] [address] Dr. Sarmad Patino Bilirubin [Mass/Vol] 0.5 mg/dL Normal 0.2-1.0 [facility] Comment on above: Performed By: #### D DAVIDSON, MG, PHOS, CMP, LIPID, URIC #### [facility] [address] [place] [address] Dr. Sarmad Patino Calcium [Mass/Vol] 9.8 mg/dL Normal 8.5-10.1 [facility] Comment on above: Performed By: #### D DAVIDSON, MG, PHOS, CMP, LIPID, URIC #### [facility] [address] [place] [address] Dr. Sarmad Patino Chloride [Moles/Vol] 105 mmol/L Normal 98-107 [facility] Comment on above: Performed By: #### D DAVIDSON, MG, PHOS, CMP, LIPID, URIC #### [facility] [address] [place] [address] Dr. Sarmad Patino CO2 [Moles/Vol] 25.9 mmol/L Normal 21.0-32.0 [facility] Comment on above: Performed By: #### D DAVIDSON, MG, PHOS, CMP, LIPID, URIC #### [facility] [address] [place] [address] Dr. Sarmad Patino Creatinine [Mass/Vol] 0.81 mg/dL Normal 0.55-1.02 [facility] Comment on above: Performed By: #### D DAVIDSON, MG, PHOS, CMP, LIPID, URIC #### [facility] [address] [place] [address] Dr. Sarmad Patino EGFR-AF MALAWIAN >60 Normal >=60 [facility] Comment on above: Performed By: #### D DAVIDSON, MG, PHOS, CMP, LIPID, URIC #### [facility] [address] [place] [address] Dr. Sarmad Patino EGFR-NON AF MALAWIAN >60 Normal >=60 [facility] Comment on above: Performed By: #### D DAVIDSON, MG, PHOS, CMP, LIPID, URIC #### [facility] [address] [place] [address] Dr. Sarmad Patino Globulin (S) [Mass/Vol] 3.8 g/dL Normal [facility] Comment on above: Performed By: #### D DAVIDSON, MG, PHOS, CMP, LIPID, URIC #### [facility] [address] [place] [address] Dr. Sarmad Patino Glucose [Mass/Vol] 101 mg/dL Normal 74-106 [facility] Comment on above: Performed By: #### D DAVIDSON, MG, PHOS, CMP, LIPID, URIC #### [facility] [address] [place] [address] Dr. Sarmad Patino Potassium [Moles/Vol] 3.9 mmol/L Normal 3.5-5.1 [facility] Comment on above: Performed By: #### D DAVIDSON, MG, PHOS, CMP, LIPID, URIC #### [facility] [address] [address] [address] Sarmad Patino Protein [Mass/Vol] 7.4 g/dL Normal 6.4-8.2 [facility] Comment on above: Performed By: #### D DAVIDSON, MG, PHOS, CMP, LIPID, URIC #### [facility] [address] [address] [address] Sarmad Patino Sodium [Moles/Vol] 141 mmol/L Normal 136-[address] [facility] Comment on above: Performed By: #### D DAVIDSON, MG, PHOS, CMP, LIPID, URIC #### [facility] [address] [address] [address] Sarmad Patino Urea nitrogen [Mass/Vol] 18.0 mg/dL Normal 7.0-18.0 [facility] Comment on above: Performed By: #### D DAVIDSON, MG, PHOS, CMP, LIPID, URIC #### [facility] [address] [address] [address] Sarmad Patino Urea nitrogen/Creatinine [Mass ratio] 22.2 mg/mg Normal [facility] Comment on above: Performed By: #### D DAVIDSON, MG, PHOS, CMP, LIPID, URIC #### [facility] [address] [place] [address] Dr. Sarmad Patino URIC ACID SERUMon 10-08-2021 Urate [Mass/Vol] 4.7 mg/dL Normal 2.6-6.0 [facility] Comment on above: Performed By: #### D DAVIDSON, MG, PHOS, CMP, LIPID, URIC #### [facility] [address] [address] [address] Sarmad SALAZAROLIMU, WHOLE BLOODon EVEROLIMUS 8.0 ng/mL Normal 3.0-8.0 [facility] Comment on above: Result Comment: Perf ormed by LC-MS/MS technology. Performed By: #### U MAXI, LIPID, MG, CMP, DBIL, PHOS #### [facility] [address] [address] [address] Sarmad Patino FK506 (TACROLIMUS) WHOLE BLO ODon 09-14-2021 Tacrolimus (FK506), Blood 9.3 ng/mL Normal 2.0-20.0 [facility] Comment on above: Result Comment: Trou gh (immediately following transplant) 15.0 . Trough (steady state, 2 weeks or more after transplant): 3.0 - 8.0 . Performed by LC-MS/MS technology. Performed By: #### U MAXI, LIPID, MG, CMP, DBIL, PHOS #### [facility] [address] [address] [address] Sarmad Patino BK VIRUS PCR QUANTon 022 BKV DNA QUANT PCR PLASMA Negative Normal Negative [facility] Comment on above: Result Comment: No B K DNA detected. . The linear range of the assay is 22 - 100,000,000 IU/mL. Performed By: #### D DAVIDSON, MG, PHOS, CMP, LIPID, URIC #### [facility] [address] [place] [address] Dr. Sarmad Patino Log10 BKV DNA Plasma Normal [facility] Comment on above: Performed By: #### D DAVIDSON, MG, PHOS, CMP, LIPID, URIC #### [facility] [address] [place] [address] Dr. Sarmad Patino BILIRUBIN CONJUGATED (DIRECT )on 09-10-2021 BILI, CONJUGATED 0.1 mg/dL Normal 0.0-0.[address] [facility] Comment on above: Performed By: #### D DAVIDSON, MG, PHOS, CMP, LIPID, URIC #### [facility] [address] [place] [address] Dr. Sarmad Patino CBC AUTO DIFFon 09-10-2021 BASO # 0.0 103/ul Normal 0.0-0.1 [facility] Comment on above: Performed By: #### D DAVIDSON, MG, PHOS, CMP, LIPID, URIC #### [facility] [address] [place] [address] Dr. Sarmad Patino Basophils/100 WBC (Bld) 0.1 % Critically low 0.2-2.0 [facility] Comment on above: Performed By: #### D DAVIDSON, MG, PHOS, CMP, LIPID, URIC #### [facility] [address] [place] [address] Dr. Sarmad Patino EO # 0.2 103/ul Normal 0.0-0.7 [facility] Comment on above: Performed By: #### D DAVIDSON, MG, PHOS, CMP, LIPID, URIC #### [facility] [address] [place] [address] Dr. Sarmad Patino Eosinophils/100 WBC (Bld) 2.3 % Normal 0.9-7.0 [facility] Comment on above: Performed By: #### D DAVIDSON, MG, PHOS, CMP, LIPID, URIC #### [facility] [address] [place] [address] Dr. Sarmad Patino Erythrocyte distribution width (RBC) [Ratio] 13.6 % Normal 11.0-15.0 [facility] Comment on above: Performed By: #### D DAVIDSON, MG, PHOS, CMP, LIPID, URIC #### [facility] [address] [place] [address] Dr. Sarmad Patino Hematocrit (Bld) [Volume fraction] 45.1 % Normal 36.0-48.0 [facility] Comment on above: Performed By: #### D DAVIDSON, MG, PHOS, CMP, LIPID, URIC #### [facility] [address] [place] [address] Dr. Sarmad Patino Hemoglobin (Bld) [Mass/Vol] 14.7 g/dL Normal 12.0-16.0 [facility] Comment on above: Performed By: #### D DAVIDSON, MG, PHOS, CMP, LIPID, URIC #### [facility] [address] [place] [address] Dr. Sarmad Patino IG # 0.03 10e3/ul Normal 0.00-0.03 [facility] Comment on above: Performed By: #### D DAVIDSON, MG, PHOS, CMP, LIPID, URIC #### [facility] [address] [place] [address] Dr. Sarmad Patino IG % 0.4 % Normal 0.0-0.5 [facility] Comment on above: Performed By: #### D DAVIDSON, MG, PHOS, CMP, LIPID, URIC #### [facility] [address] [address] [address] Sarmad Patino LYMPH # 1.3 103/ul Normal 1.2-3.8 [facility] Comment on above: Performed By: #### D DAVIDSON, MG, PHOS, CMP, LIPID, URIC #### [facility] [address] [place] [address] Dr. Sarmad Patino Lymphocytes/100 WBC (Bld) 18.9 % Critically low 20.5-60.0 [facility] Comment on above: Performed By: #### D DAVIDSON, MG, PHOS, CMP, LIPID, URIC #### [facility] [address] [place] [address] Dr. Sarmad Patino MANUAL DIFF REQ NO Normal [facility] Comment on above: Performed By: #### D DAVIDSON, MG, PHOS, CMP, LIPID, URIC #### [facility] [address] [place] [address] Dr. Sarmad Patino MCH (RBC) [Entitic mass] 29.0 pg Normal 26.7-34.0 [facility] Comment on above: Performed By: #### D DAVIDSON, MG, PHOS, CMP, LIPID, URIC #### [facility] [address] [place] [address] Dr. Sarmad Patino MCHC (RBC) [Mass/Vol] 32.6 g/dL Normal 29.9-35.2 [facility] Comment on above: Performed By: #### D DAVIDSON, MG, PHOS, CMP, LIPID, URIC #### [facility] [address] [place] [address] Dr. Sarmad Patino MCV (RBC) [Entitic vol] 89.0 fL Normal 81.0-99.0 [facility] Comment on above: Performed By: #### D DAVIDSON, MG, PHOS, CMP, LIPID, URIC #### [facility] [address] [place] [address] Dr. Sarmad Patino MONO # 0.8 103/ul Normal 0.3-0.8 [facility] Comment on above: Performed By: #### D DAVIDSON, MG, PHOS, CMP, LIPID, URIC #### [facility] [address] [address] [address] Sarmad Patino Monocytes/100 WBC (Bld) 11.9 % Normal 1.7-12.0 [facility] Comment on above: Performed By: #### D DAVIDSON, MG, PHOS, CMP, LIPID, URIC #### [facility] [address] [place] [address] Dr. Sarmad Patino NEUT # 4.6 103/ul Normal 1.4-6.5 [facility] Comment on above: Performed By: #### D DAVIDSON, MG, PHOS, CMP, LIPID, URIC #### [facility] [address] [place] [address] Dr. Sarmad Patino Neutrophils/100 WBC (Bld) 66.4 % Normal 43.0-75.0 [facility] Comment on above: Performed By: #### D DAVIDSON, MG, PHOS, CMP, LIPID, URIC #### [facility] [address] [place] [address] Dr. Sarmad Patino Platelet mean volume (Bld) [Entitic vol] 10.6 fL Normal 9.5-13.5 [facility] Comment on above: Performed By: #### D DAVIDSON, MG, PHOS, CMP, LIPID, URIC #### [facility] [address] [place] [address] Dr. Sarmad Patino PLT 233 103/ul Normal 150-450 [facility] Comment on above: Performed By: #### D DAVIDSON, MG, PHOS, CMP, LIPID, URIC #### [facility] [address] [place] [address] Dr. Sarmad Patino RBC 5.07 106/ul Normal 4.20-5.40 [facility] Comment on above: Performed By: #### D DAVIDSON, MG, PHOS, CMP, LIPID, URIC #### [facility] [address] [place] [address] Dr. Sarmad Patino WBC 6.9 103/ul Normal 4.0-11.0 [facility] Comment on above: Performed By: #### D DAVIDSON, MG, PHOS, CMP, LIPID, URIC #### [facility] [address] [address] [address] Sarmad Patino GLYCOHEMOGLOBIN A1Con 2021 ADA RECOMMENDATION SEE BELOW Normal [facility] Comment on above: Result Comment: ADA RECOMMENDED LIMIT 4.0 - 6.0 ADA THERAPEUTIC TARGET < 7.0 ACTION SUGGESTED > 7.0 Performed By: #### D DAVIDSON, MG, PHOS, CMP, LIPID, URIC #### [facility] [address] [address] [address] Sarmad Patino Glucose [Mass/Vol] 120 mg/dL Normal [facility] Comment on above: Performed By: #### D DAVIDSON, MG, PHOS, CMP, LIPID, URIC #### [facility] [address] [address] [address] Sarmad Patino HbA1c (Bld) [Mass fraction] 5.8 % Normal 4.5-6.2 [facility] Comment on above: Performed By: #### D DAVIDSON, MG, PHOS, CMP, LIPID, URIC #### [facility] [address] [address] [address] Sarmad Patino LIPID PROFILEon 09-10-2021 CHOL-HDL RATIO NORM SEE BELOW Normal [facility] Comment on above: Result Comment: 3.3 - 4.4 LOW RISK 4.4 - 7.1 AVERAGE RISK 7.1 - 11.0 MODERATE RISK >11.0 HIGH RISK Performed By: #### D DAVIDSON, MG, PHOS, CMP, LIPID, URIC #### [facility] [address] [address] [address] Sarmad Patino Cholesterol [Mass/Vol] 150 mg/dL Normal <=200 [facility] Comment on above: Performed By: #### D DAVIDSON, MG, PHOS, CMP, LIPID, URIC #### [facility] [address] [address] [address] Sarmad Patino Cholesterol in HDL [Mass/Vol] 47 mg/dL Normal 40-60 [facility] Comment on above: Performed By: #### D DAVIDSON, MG, PHOS, CMP, LIPID, URIC #### [facility] [address] [address] [address] Sarmad Patino Cholesterol in LDL [Mass/Vol] 78.4 mg/dL Normal [facility] Comment on above: Performed By: #### D DAVIDSON, MG, PHOS, CMP, LIPID, URIC #### [facility] [address] [address] [address] Sarmad Patino Cholesterol.total/Cho lesterol in HDL [Mass ratio] 3.2 {ratio} Normal [facility] Comment on above: Performed By: #### D DAVIDSON, MG, PHOS, CMP, LIPID, URIC #### [facility] [address] [address] [address] Sarmad Patino HDL NORMAL > or = 60 mg/dl - LO W CARDIOVASCULAR RISK <40 mg/dl - HIGH CARDIOVASCULAR RISK Normal [facility] Comment on above: Performed By: #### D DAVIDSON, MG, PHOS, CMP, LIPID, URIC #### [facility] [address] [address] [address] Sarmad Patino LDL CALC NORMAL SEE BELOW Normal [facility] Comment on above: Result Comment: <100 mg/dl OPTIMAL 100 - 129 mg/dl NEAR OR ABOVE OPTIMAL 130 - 159 mg/dl BORDERLINE HIGH 160 - 189 mg/dl HIGH >190 mg/dl VERY HIGH Performed By: #### D DAVIDSON, MG, PHOS, CMP, LIPID, URIC #### [facility] [address] [address] [address] Sarmad Patino Triglyceride [Mass/Vol] 123 mg/dL Normal <=150 [facility] Comment on above: Performed By: #### D DAVIDSON, MG, PHOS, CMP, LIPID, URIC #### [facility] [address] [address] [address] Sarmad Ptaino VLDL CALC 24.6 mg/dL Normal [facility] Comment on above: Performed By: #### D DAVIDSON, MG, PHOS, CMP, LIPID, URIC #### [facility] [address] [address] [address] Sarmad Patino MAGNESIUMon 09-10-2021 Magnesium [Mass/Vol] 1.5 mg/dL Critically low 1.8-2.4 [facility] Comment on above: Performed By: #### D DAVIDSON, MG, PHOS, CMP, LIPID, URIC #### [facility] [address] [place] [address] Dr. Sarmad Patino PHOSPHORUSon 09-10-2021 Phosphate [Mass/Vol] 3.8 mg/dL Normal 2.6-4.7 [facility] Comment on above: Performed By: #### D DAVIDSON, MG, PHOS, CMP, LIPID, URIC #### [facility] [address] [place] [address] Dr. Sarmad Patino PROF 14(COMP METB)on 022 Albumin [Mass/Vol] 3.4 g/dL Normal 3.4-5.0 [facility] Comment on above: Performed By: #### D DAVIDSON, MG, PHOS, CMP, LIPID, URIC #### [facility] [address] [place] [address] Dr. Sarmad Patino Albumin/Globulin [Mass ratio] 0.9 {ratio} Normal [facility] Comment on above: Performed By: #### D DAVIDSON, MG, PHOS, CMP, LIPID, URIC #### [facility] [address] [place] [address] Dr. Sarmad Patino ALP [Catalytic activity/Vol] 143 U/L Critically high 46-116 [facility] Comment on above: Performed By: #### D DAVIDSON, MG, PHOS, CMP, LIPID, URIC #### [facility] [address] [place] [address] Dr. Sarmad Patino ALT [Catalytic activity/Vol] 19 U/L Normal 14-59 [facility] Comment on above: Performed By: #### D DAVIDSON, MG, PHOS, CMP, LIPID, URIC #### [facility] [address] [place] [address] Dr. Sarmad Patino Anion gap [Moles/Vol] 13.4 mmol/L Normal [facility] Comment on above: Performed By: #### D DAVIDSON, MG, PHOS, CMP, LIPID, URIC #### [facility] [address] [address] [address] Sarmad Patino AST [Catalytic activity/Vol] 24 U/L Normal 15-37 [facility] Comment on above: Performed By: #### D DAVIDSON, MG, PHOS, CMP, LIPID, URIC #### [facility] [address] [place] [address] Dr. Sarmad Patino Bilirubin [Mass/Vol] 0.4 mg/dL Normal 0.2-1.0 [facility] Comment on above: Performed By: #### D DAVIDSON, MG, PHOS, CMP, LIPID, URIC #### [facility] [address] [place] [address] Dr. Sarmad Patino Calcium [Mass/Vol] 9.3 mg/dL Normal 8.5-10.1 [facility] Comment on above: Performed By: #### D DAVIDSON, MG, PHOS, CMP, LIPID, URIC #### [facility] [address] [place] [address] Dr. Sarmad Patino Chloride [Moles/Vol] 106 mmol/L Normal 98-107 [facility] Comment on above: Performed By: #### D DAVIDSON, MG, PHOS, CMP, LIPID, URIC #### [facility] [address] [place] [address] Dr. Sarmad Patino CO2 [Moles/Vol] 25.5 mmol/L Normal 21.0-32.[address] [facility] Comment on above: Performed By: #### D DAVIDSON, MG, PHOS, CMP, LIPID, URIC #### [facility] [address] [place] [address] Dr. Sarmad Patino Creatinine [Mass/Vol] 0.85 mg/dL Normal 0.55-1.02 [facility] Comment on above: Performed By: #### D DAVIDSON, MG, PHOS, CMP, LIPID, URIC #### [facility] [address] [place] [address] Dr. Sarmad Patino EGFR-AF MALAWIAN >60 Normal >=[address] [facility] Comment on above: Performed By: #### D DAVIDSON, MG, PHOS, CMP, LIPID, URIC #### [facility] [address] [address] [address] Sarmad Patino EGFR-NON AF MALAWIAN >60 Normal >=60 [facility] Comment on above: Performed By: #### D DAVIDSON, MG, PHOS, CMP, LIPID, URIC #### [facility] [address] [place] [address] Dr. Sarmad Patino Globulin (S) [Mass/Vol] 3.8 g/dL Normal [facility] Comment on above: Performed By: #### D DAVIDSON, MG, PHOS, CMP, LIPID, URIC #### [facility] [address] [address] [address] Sarmad Patino Glucose [Mass/Vol] 100 mg/dL Normal 74-[address] [facility] Comment on above: Performed By: #### D DAVIDSON, MG, PHOS, CMP, LIPID, URIC #### [facility] [address] [place] [address] Dr. Sarmad Patino Potassium [Moles/Vol] 3.9 mmol/L Normal 3.5-5.1 [facility] Comment on above: Performed By: #### D DAVIDSON, MG, PHOS, CMP, LIPID, URIC #### [facility] [address] [address] [address] Sarmad Patino Protein [Mass/Vol] 7.2 g/dL Normal 6.4-8.[address] [facility] Comment on above: Performed By: #### D DAVIDSON, MG, PHOS, CMP, LIPID, URIC #### [facility] [address] [address] [address] Sarmad Patino Sodium [Moles/Vol] 141 mmol/L Normal 136-[address] [facility] Comment on above: Performed By: #### D DAVIDSON, MG, PHOS, CMP, LIPID, URIC #### [facility] [address] [place] [address] Dr. Sarmad Patino Urea nitrogen [Mass/Vol] 16.0 mg/dL Normal 7.0-18.0 [facility] Comment on above: Performed By: #### D DAVIDSON, MG, PHOS, CMP, LIPID, URIC #### [facility] [address] [address] [address] Sarmad Patino Urea nitrogen/Creatinine [Mass ratio] 18.8 mg/mg Normal [facility] Comment on above: Performed By: #### D DAVIDSON, MG, PHOS, CMP, LIPID, URIC #### [facility] [address] [place], [place] [address] Dr. Sarmad Patino URIC ACID SERUMon 09-10-2021 Urate [Mass/Vol] 4.8 mg/dL Normal 2.6-6.0 [facility] Comment on above: Performed By: #### D DAVIDSON, MG, PHOS, CMP, LIPID, URIC #### [facility] [id number] Sarmad Patino Urinalysis - AUTOMATEDon Appearance (U) cloudy [employer] Other Bilirubin Ql (U) Negative [employer] Other Color (U) pale yellow [employer] Other Glucose Ql (U) Negative [employer] Other Hemoglobin Ql (U) moderate [employer] Other Ketones Ql (U) Negative [employer] Other Leukocyte esterase Test strip Ql (U) moderate [employer] Other Nitrite Ql (U) Negative [employer] Other pH (U) 7.0 [pH] [employer] Other Protein Ql (U) Negative [employer] Other Specific gravity (U) [Rel density] 1.010 [employer] Other Urobilinogen (U) [Mass/Vol] 0.2 mg/dL [employer] Other Urinalysis - AUTOMATED [employer] Other Urine Cultureon 08-14-2021 Bacteria identified Cx Nom (U) Reason for Exam Dysuria Urine ORGANISM: Klebsiella pneumoniae (O:KLEPNE) [place] Count 100,000 Aerobic SHYLA Charge (NUC86) ---- SUSCEPTIBILITY --- ORGANISM: O:KLEPNE ANTIBIOTIC INTERPRETATION SHYLA Amikacin S <16 Ampicillin R >16 Ampicillin/Sulbactam S <8/4 Aztreonam S <4 Cefazolin S <2 Cefepime S <2 Ceftazidime S <1 Ceftazidime/Avibactam S <8 Ceftriaxone S <1 Ciprofloxacin S <1 Ertapenem S <0.5 Gentamicin S <4 Levofloxacin S <2 Meropenem S <1 Nitrofurantoin S <32 Piperacillin/Tazobact am S <16 Tetracycline S <4 Tigecycline S <2 Tobramycin S <4 Trimethoprim/Sulfamet hoxazole S <2/38 S = SUSCEPTIBLE I = [...] RESISTANT TO ALL B-LACTAM DRUGS. PERFORMED BY: [facility] [address] [place] [address] PATHOLOGIST MD ALLERGY IMMUNOLOGY LOVELY COLE M.D. Normal [facility] Comment on above: Performed By: #### C UU #### [facility] [address] Urine Culture 100,000 [employer] Other Urine Culture <16 Susceptible [employer] Other Urine Culture >16 Resistant [employer] Other Urine Culture <4 Susceptible [employer] Other Urine Culture <2 Susceptible [employer] Other Urine Culture <1 Susceptible [employer] Other Urine Culture <0.5 Susceptible [employer] Other Urine Culture <32 Susceptible [employer] Other Urine Culture <2/38 Susceptible [employer] Other *URINE CULTUREon 12-31-2017 Bacteria identified in Urine by Culture Clinical Report: (D) Specimen: URINE Collected: 12/31/2017 13:40 Status: Final Last Updated: 01/04/2018 12:38 ISO (Final) Diphtheroids >100,000 Cfu/Ml 2 Morphologies ISO (Final) Aerococcus urinae 50,000 - 100,000 Cfu/mL Result changed by [email or web address] on 01/04/2018 12:38. The previous result was: ISO (Prelim) Normal [facility] Comment on above: Performed By: #### 4 1000, [id number], [id number], [id number], [id number], [id number] ####[facility] CBC W/DIFFon 12-25-2017 ABS BASOPHILS 0.0 10*3/uL Normal 0.0-0.2 [facility] Comment on above: Performed By: #### 5 0103 ####[facility] ABS IMM GRANS 0.0 10*3/uL Normal 0.0-0.2 [facility] Comment on above: Performed By: #### 5 0103 ####[facility] ABS NEUTROPHILS 5.0 10*3/uL Normal 1.6-7.6 [facility] Comment on above: Performed By: #### 5 0103 ####[facility] Basophils Auto #/vol (Bld) 0.1 % Normal 0.0-1.0 [facility] Comment on above: Performed By: #### 5 0103 ####[facility] [facility].[address] Eosinophils Auto #/vol (Bld) 0.1 10*3/uL Normal 0.0-0.5 [facility] Comment on above: Performed By: #### 5 0103 ####[facility] Eosinophils/100 WBC Auto (Bld) 1.6 % Normal 0.0-6.0 [facility] Comment on above: Performed By: #### 5 0103 ####[place] [address] [address] Erythrocyte distribution width Auto Ratio (RBC) 14.6 % Normal 11.5-15.0 [facility] Comment on above: Performed By: #### 5 0103 ####[facility] Hematocrit Auto Volume Fraction (Bld) 44.9 % Normal 36.0-45.0 [facility] Comment on above: Performed By: #### 5 3 ####[facility] Hemoglobin mass conc (Bld) 14.9 g/dL Normal 12.0-15.0 [facility] Comment on above: Performed By: #### 5 3 ####[facility] IMMATURE GRANS 0.4 % Normal 0.0-1.0 [facility] Comment on above: Performed By: #### 5 3 ####[place] [address] [address] Lymphocytes Auto #/vol (Bld) 1.0 10*3/uL Low 1.2-4.0 [facility] Comment on above: Performed By: #### 5 0103 ####[facility]3000 [facility].[address] Lymphocytes/100 WBC Auto (Bld) 14.9 % Low 20.0-45.0 [facility] Comment on above: Performed By: #### 5 0103 ####[facility]3000 [facility].[address] MCH Auto Entitic mass (RBC) 28.8 pg Normal 27.0-33.0 [facility] Comment on above: Performed By: #### 3 ####[facility] MCHC Auto mass conc (RBC) 33.2 g/dL Normal 32.0-35.0 [facility] Comment on above: Performed By: #### 3 ####[facility]3000 [facility].[address] MCV Auto Entitic volume (RBC) 86.7 fL Normal 82.0-98.0 [facility] Comment on above: Performed By: #### 3 ####[facility]3000 [facility].[address] Monocytes Auto #/vol (Bld) 0.7 10*3/uL Normal 0.1-1.0 [facility] Comment on above: Performed By: #### 3 ####[facility]3000 [facility].[address] MONOS 10.6 % Normal 5.0-12.0 [facility] Comment on above: Performed By: #### 102 ####[facility]3000 [facility].[address] Neutrophils/100 WBC Auto (Bld) 72.4 % High 40.0-72.0 [facility] Comment on above: Performed By: #### 5 0103 ####[facility]3000 [facility].[address] Nucleated RBC/100 WBC Ratio (Bld) 0 % Normal 0-0 [facility] Comment on above: Performed By: #### 5 0103 ####[facility]3000 [facility].[address] PLAT CNT 203 10*3/uL Normal 150-400 [facility] Comment on above: Performed By: #### 5 0103 ####[place] [address] [facility].[address] RBC Auto #/vol (Bld) 5.18 10*6/uL High 3.80-5.00 [facility] Comment on above: Performed By: #### 5 0103 ####[facility]3000 [facility].[address] WBC Auto #/vol (Bld) 6.90 10*3/uL Normal 4.00-10.60 [facility] Comment on above: Performed By: #### 5 0103 ####[place] [address] [facility].[address] COMP METABOLIC PANELon 12-25 Albumin mass conc 4.3 g/dL Normal 3.5-5.7 [facility] Comment on above: Performed By: #### 4 1000, 26378, 42604, 42915, 70436, 04237 ####[facility]3000 [facility].[address] ALKALINE PHOSPH 118 IU/L High 34-104 The [facility] Comment on above: Performed By: #### 4 1000, 75926, 32719, 90734, 43191, 30385 ####[facility] [place] [address], [place] ALT enzyme act/vol 11 U/L Normal 7-52 [facility] Comment on above: Performed By: #### 4 1000, 49903, 29436, 25260, 61757, 43325 ####[facility] [place] [address], [place] AST enzyme act/vol 17 U/L Normal 13-39 [facility] Comment on above: Performed By: #### 4 1000, 36708, 80483, 04010, 37073, 46573 ####[facility] [place] [address], [place] Bilirubin mass conc 0.4 mg/dL Normal 0.3-1.0 [facility] Comment on above: Performed By: #### 4 1000, 47445, 31969, 70813, 90167, 70961 ####[facility] [place] [address], [place] Calcium mass conc 9.8 mg/dL Normal 8.6-10.3 The [facility] Comment on above: Performed By: #### 4 1000, 33647, 75477, 67217, 47635, 54451 ####[facility] [place] [address], [place] Chloride molar conc 104 mmol/L Normal 98-107 [facility] Comment on above: Performed By: #### 4 1000, 75970, 63924, 08257, 90685, 88079 ####[facility] [place] [address], [place] CO2 molar conc 27 mmol/L Normal 21-31 [facility] Comment on above: Performed By: #### 4 1000, 39089, 25337, 90073, 08196, 58945 ####[facility] [place] [address], [facility] Creatinine mass conc 0.76 mg/dL Normal 0.60-1.20 [facility] Comment on above: Performed By: #### 4 1000, 54634, 17846, 15993, 88258, 52124 ####[facility] [place] [address], [facility] GFR/1.73 sq M predicted among blacks MDRD vol rate/area (S/P/Bld) mL/min/{1.73_m2} Normal >60 The [facility] Comment on above: Performed By: #### 4 1000, 28083, 41746, 30734, 83339, 17303 ####[facility]3000 [facility] [place] [address], [facility] GFR/1.73 sq M predicted among non-blacks MDRD vol rate/area (S/P/Bld) mL/min/{1.73_m2} Normal >60 The [facility] Comment on above: Performed By: #### 4 1000, 67642, 44482, 02136, 49851, 16385 ####[facility]3000 [facility] [place] [address], [facility] Glucose mass conc 94 mg/dL Normal 70-100 The [facility] Comment on above: Performed By: #### 4 1000, 42486, 32704, 98658, 41910, 89140 ####[facility] [place] [address], [facility] Potassium molar conc 3.9 mmol/L Normal 3.5-5.1 [facility] Comment on above: Performed By: #### 4 1000, 87642, 65230, 10405, 78442, 16613 ####[facility] [place] [address], [facility] Protein mass conc 7.2 g/dL Normal 6.0-8.3 The [facility] Comment on above: Performed By: #### 4 1000, 20337, 31577, 37723, 45551, 76390 ####[facility] Sodium molar conc 140 mmol/L Normal 136-145 The [facility] Comment on above: Performed By: #### 4 1000, 69218, 24694, 26023, 01556, 60832 ####[facility] Urea nitrogen mass conc 15 mg/dL Normal 7-25 [facility] Comment on above: Performed By: #### 4 1000, 46677, 07753, 20936, 51876, 99017 ####[facility] DIRECT BILIon 12-25-2017 Bilirubin.direct mass conc 0.1 mg/dL Normal 0.0-0.2 [facility] Comment on above: Performed By: #### 4 1000, 31810, 70031, 61976, 81534, 51284 ####[facility] EVEROLIMUS [id number] 8 EVEROLIMUS 4.7 ng/mL Normal [facility] Comment on above: Result Comment: Ther apeutic [...] the transplantcenter.Test developed and characteristics determined by [facility]. See Compliance Statement B: NCTech/CSPerformed by [facility],[address] [facility] [place] [address] gws.[employer], Leonid Antonio MD - Lab. Director LIPID PROFILEon 12-25-2017 Cholesterol in HDL mass conc 51 mg/dL Normal 23-92 [facility] Comment on above: Result Comment: Slig ht variation in normal range could be due to gender and/or age.HDL CHOLESTEROL REFERENCE RANGE:20 years and older Cardiovascular Risk> or =60 mg/dL Oadmbrcqc63 TO 59 mg/dL Low Risk<40 mg/dL High Risk Performed By: #### 4 5506, 40723, 84659, 91932, 13788, 56671 ####[facility]3000 [place] [address], [facility] Cholesterol in LDL mass conc 58 mg/dL Normal 0-130 [facility] Comment on above: Result Comment: LDL IS A CALCULATIONLDL IS ONLY VALID IF THE TRIG IS LESS THAN 400. Performed By: #### 4 5506, 78617, 10490, 31707, 85285, 42737 ####[facility] [place] [address], [place] Cholesterol mass conc 122 mg/dL Normal 120-200 [facility] Comment on above: Result Comment: CHOL ESTEROL REFERENCE RANGE:20 YEARS AND OLDER CARDIOVASCULAR RISKLess than 200 mg/dl Low Smmw941 to 239 mg/dl Borderline Eaym259 mg/dl and greater High Risk Performed By: #### 4 5506, 49538, 74018, 30064, 77774, 08521 ####[facility] [place] [address], [place] Cholesterol.total/Cho lesterol in HDL mass ratio 2.4 {ratio} Normal .0-4.5 [facility] Comment on above: Performed By: #### 4 5506, 69313, 17738, 78260, 98745, 50373 ####[facility] NON-HDL CHOLESTEROL 71 mg/dL Normal [facility] Comment on above: Performed By: #### 4 5506, 86689, 74983, 83937, 69972, 65559 ####[facility] Triglyceride mass conc 65 mg/dL Normal 40-149 [facility] Comment on above: Result Comment: TRIG LYCERIDE REFERENCE RANGE:20 YEARS AND OLDER CARDIOVASCULAR RISKLESS THAN 150 mg/dl LOW [id number] TO 199 mg/dl BORDERLINE GIHX782 mg/dl AND GREATER HIGH RISK Performed By: #### 4 5506, 51998, 59523, 85679, 03053, 79234 ####[facility] VLDL CHOL 13 mg/dL Normal 0-40 [facility] Comment on above: Performed By: #### 4 5506, 37275, 04273, 75056, 19840, 34619 ####[facility]3000 [facility].[address] MAGNESIUM BLOODon 12-25-2017 Magnesium mass conc 1.8 mg/dL Low 1.9-2.7 [facility] Comment on above: Performed By: #### 4 1000, 97555, 75191, 07327, 10899, 47752 ####[facility] [place] [address], [facility] PHOSPHORUS BLOODon 8 Phosphate mass conc 3.4 mg/dL Normal 2.5-5.0 [facility] Comment on above: Performed By: #### 4 5506, 80328, 99483, 60407, 61400, 07679 ####[facility]3000 [facility].[address] TACROLIMUSon 12-25-2017 Tacrolimus mass conc (Bld) 6.4 ng/mL Normal 5.0-20.0 [facility] Comment on above: Result Comment: The [facility] [employer] Tacrolimus assay is a delayed one-step immunoassayfor the quantitative determination of tacrolimus in human whole bloodusing the chemiluminescent microparticle immunoassay (CMIA) technologywith flexible assay protocols, referred to as Chemiflex. Performed By: #### 4 1000, 91797, 60138, 79958, 71787, 60906 ####[facility]3000 [facility].[address] URIC ACID BLOODon 12-25-2017 Urate mass conc 4.7 mg/dL Normal 2.3-6.6 The [facility] Comment on above: Performed By: #### 4 5506, 45318, 82165, 29936, 26349, 59973 ####[facility]3000 [facility].[address] CBC W/DIFFon 10-30-2017 ABS BASOPHILS 0.0 10*3/uL Normal 0.0-0.2 [facility] Comment on above: Performed By: #### 4 1647, 65260 ####[place] [address] [address] ABS IMM GRANS 0.0 10*3/uL Normal 0.0-0.2 [facility] Comment on above: Performed By: #### 4 6434, 59029 ####[address] ABS NEUTROPHILS 4.9 10*3/uL Normal 1.6-7.6 The [facility] Comment on above: Performed By: #### 4 6477, 45720 ####[address] Basophils Auto #/vol (Bld) 0.1 % Normal 0.0-1.0 [facility] Comment on above: Performed By: #### 4 3193, 05811 ####[facility]3000 [facility].[address] Eosinophils Auto #/vol (Bld) 0.1 10*3/uL Normal 0.0-0.5 [facility] Comment on above: Performed By: #### 4 7192, 96581 ####[facility]3000 [facility].[address] Eosinophils/100 WBC Auto (Bld) 1.4 % Normal 0.0-6.0 [facility] Comment on above: Performed By: #### 4 8773, 99220 ####[address] Erythrocyte distribution width Auto Ratio (RBC) 14.6 % Normal 11.5-15.0 [facility] Comment on above: Performed By: #### 4 1919, 19351 ####[address] Hematocrit Auto Volume Fraction (Bld) 46.8 % High 36.0-45.0 [facility] Comment on above: Performed By: #### 4 5305, 39064 ####[place] [address] [facility].[address] Hemoglobin mass conc (Bld) 15.1 g/dL High 12.0-15.0 [facility] Comment on above: Performed By: #### 4 5006, 10167 ####[place] [address] [facility].[address] IMMATURE GRANS 0.4 % Normal 0.0-1.0 [facility] Comment on above: Performed By: #### 6 1683, 24099 ####[address] [place] [address], [place] Lymphocytes Auto #/vol (Bld) 1.2 10*3/uL Normal 1.2-4.0 [facility] Comment on above: Performed By: #### 4 6474, 32160 ####[address] Lymphocytes/100 WBC Auto (Bld) 16.6 % Low 20.0-45.0 [facility] Comment on above: Performed By: #### 4 7371, 21014 ####[address] MCH Auto Entitic mass (RBC) 29.0 pg Normal 27.0-33.0 [facility] Comment on above: Performed By: #### 4 3365, 60547 ####[address] MCHC Auto mass conc (RBC) 32.3 g/dL Normal 32.0-35.0 [facility] Comment on above: Performed By: #### 4 8302, 29985 ####[address] MCV Auto Entitic volume (RBC) 89.8 fL Normal 82.0-98.0 [facility] Comment on above: Performed By: #### 4 5997, 55458 ####[address] Monocytes Auto #/vol (Bld) 0.8 10*3/uL Normal 0.1-1.0 [facility] Comment on above: Performed By: #### 4 2782, 78940 ####[address] MONOS 11.9 % Normal 5.0-12.0 [facility] Comment on above: Performed By: #### 4 5520, 58542 ####[facility] [place] [address], [facility] Neutrophils/100 WBC Auto (Bld) 69.6 % Normal 40.0-72.0 [facility] Comment on above: Performed By: #### 4 6447, 21020 ####[facility]3000 [facility].[address] Nucleated RBC/100 WBC Ratio (Bld) 0 % Normal 0-0 [facility] Comment on above: Performed By: #### 4 6447, 05547 ####[facility]3000 [place] [address], [facility] PLAT CNT 200 10*3/uL Normal 150-400 [facility] Comment on above: Performed By: #### 4 6447, 98924 ####[facility] RBC Auto #/vol (Bld) 5.21 10*6/uL High 3.80-5.00 [facility] Comment on above: Performed By: #### 4 6447, 74177 ####[facility]3000 [facility].[address] WBC Auto #/vol (Bld) 7.04 10*3/uL Normal 4.00-10.60 [facility] Comment on above: Performed By: #### 4 6447, 21543 ####[facility]3000 [facility].[address] COMP METABOLIC PANELon 10-30 Albumin mass conc 4.1 g/dL Normal 3.5-5.7 [facility] Comment on above: Performed By: #### 4 6447, 76042 ####[facility] ALKALINE PHOSPH 114 IU/L High 34-104 [facility] Comment on above: Performed By: #### 4 7347, 47521 ####[facility] [place] [address], [place] ALT enzyme act/vol 16 U/L Normal 7-52 [facility] Comment on above: Performed By: #### 4 2847, 50358 ####[facility] [place] [address], [place] AST enzyme act/vol 18 U/L Normal 13-39 [facility] Comment on above: Performed By: #### 4 5747, 98580 ####[facility] [place] [address], [place] Bilirubin mass conc 0.4 mg/dL Normal 0.3-1.0 [facility] Comment on above: Performed By: #### 4 3138, 44668 ####[facility] [place] [address], [place] Calcium mass conc 9.7 mg/dL Normal 8.6-10.3 [facility] Comment on above: Performed By: #### 3 6196, 52966 ####[facility] [place] [address], [place] Chloride molar conc 105 mmol/L Normal 98-107 [facility] Comment on above: Performed By: #### 4 1887, 76781 ####[facility] [place] [address], [place] CO2 molar conc 28 mmol/L Normal 21-31 [facility] Comment on above: Performed By: #### 2 6689, 71319 ####[facility] [place] [address], [place] Creatinine mass conc 0.82 mg/dL Normal 0.60-1.20 [facility] Comment on above: Performed By: #### 9 6334, 39520 ####[facility] [place] [address], [facility] GFR/1.73 sq M predicted among blacks MDRD vol rate/area (S/P/Bld) mL/min/{1.73_m2} Normal >60 The [facility] Comment on above: Performed By: #### 4 8115, 31504 ####[facility] [place] [address], [facility] GFR/1.73 sq M predicted among non-blacks MDRD vol rate/area (S/P/Bld) mL/min/{1.73_m2} Normal >60 The [facility] Comment on above: Performed By: #### 3 0670, 89291 ####[facility] [place] [address], [facility] Glucose mass conc 90 mg/dL Normal 70-100 The [facility] Comment on above: Performed By: #### 7 1956, 91410 ####[facility] [place] [address], [facility] Potassium molar conc 4.1 mmol/L Normal 3.5-5.1 [facility] Comment on above: Performed By: #### 5 2950, 05930 ####[facility] [place] [address], [facility] Protein mass conc 6.9 g/dL Normal 6.0-8.3 The [facility] Comment on above: Performed By: #### 7 0665, 98712 ####[facility] [place] [address], [facility] Sodium molar conc 138 mmol/L Normal 136-145 [facility] Comment on above: Performed By: #### 5 2881, 99298 ####[facility] [place] [address], [facility] Urea nitrogen mass conc 16 mg/dL Normal 7-25 [facility] Comment on above: Performed By: #### 4 6447, 02175 ####[facility] DIRECT BILIon 10-30-2017 Bilirubin.direct mass conc 0.0 mg/dL Normal 0.0-0.2 [facility] Comment on above: Performed By: #### 4 5506, 30505, 62472, 67005, 98788, 69223 ####[facility] EVEROLIMUS 69448uf 8 EVEROLIMUS 6.0 ng/mL Normal [facility] Comment on above: Result Comment: Ther apeutic [...] the transplantcenter.Test developed and characteristics determined by [facility]. See Compliance Statement B: NCTech/CSPerformed by [facility],[address] [place] [address] cmk.[facility], Leonid Antonio MD - Lab. Director LIPID PROFILEon 10-30-2017 Cholesterol in HDL mass conc 50 mg/dL Normal 23-92 [facility] Comment on above: Result Comment: Slig ht variation in normal range could be due to gender and/or age.HDL CHOLESTEROL REFERENCE RANGE:20 years and older Cardiovascular Risk> or =60 mg/dL Tkoywnkct73 TO 59 mg/dL Low Risk<40 mg/dL High Risk Performed By: #### 4 5506, 66937, 13862, 23833, 34782, 59497 ####[facility] [place] [address], [facility] Cholesterol in LDL mass conc 85 mg/dL Normal 0-130 [facility] Comment on above: Result Comment: LDL IS A CALCULATIONLDL IS ONLY VALID IF THE TRIG IS LESS THAN 400. Performed By: #### 4 5506, 41186, 17471, 60363, 90618, 82842 ####[facility] [place] [address], [facility] Cholesterol mass conc 152 mg/dL Normal 120-200 [facility] Comment on above: Result Comment: CHOL ESTEROL REFERENCE RANGE:20 YEARS AND OLDER CARDIOVASCULAR RISKLess than 200 mg/dl Low Inis032 to 239 mg/dl Borderline Qkss133 mg/dl and greater High Risk Performed By: #### 4 5506, 37674, 69331, 53045, 17475, 40385 ####[facility] [place] [address], [place] Cholesterol.total/Cho lesterol in HDL mass ratio 3.0 {ratio} Normal .0-4.5 [facility] Comment on above: Performed By: #### 4 5506, 11456, 51078, 26454, 66187, 97000 ####[facility] [place] [address], [place] NON-HDL CHOLESTEROL 102 mg/dL Normal [facility] Comment on above: Performed By: #### 4 5506, 16641, 28587, 16386, 47475, 91875 ####[facility] [place] [address], [place] Triglyceride mass conc 87 mg/dL Normal 40-149 [facility] Comment on above: Result Comment: TRIG LYCERIDE REFERENCE RANGE:20 YEARS AND OLDER CARDIOVASCULAR RISKLESS THAN 150 mg/dl LOW AXUB467 TO 199 mg/dl BORDERLINE LHMZ147 mg/dl AND GREATER HIGH RISK Performed By: #### 4 5506, 00016, 18888, 34812, 89841, 26361 ####[facility] VLDL CHOL 17 mg/dL Normal 0-40 [facility] Comment on above: Performed By: #### 4 5506, 63998, 11116, 16119, 81595, 90842 ####[facility]3000 [facility] MAGNESIUM BLOODon 10-30-2017 Magnesium mass conc 1.9 mg/dL Normal 1.9-2.7 [facility] Comment on above: Performed By: #### 4 5506, 53625, 26454, 90923, 89912, 22731 ####[facility]3000 [facility] PHOSPHORUS BLOODon 8 Phosphate mass conc 3.7 mg/dL Normal 2.5-5.0 [facility] Comment on above: Performed By: #### 4 5506, 61302, 63715, 93476, 66679, 05734 ####[facility]3000 [facility] TACROLIMUSon 10-30-2017 Tacrolimus mass conc (Bld) 7.1 ng/mL Normal 5.0-20.0 [facility] Comment on above: Result Comment: The [facility] [employer] Tacrolimus assay is a delayed one-step immunoassayfor the quantitative determination of tacrolimus in human whole bloodusing the chemiluminescent microparticle immunoassay (CMIA) technologywith flexible assay protocols, referred to as Chemiflex. Performed By: #### 9 9914 ####[facility] URIC ACID BLOODon 10-30-2017 Urate mass conc 4.6 mg/dL Normal 2.3-6.6 The [facility] Comment on above: Performed By: #### 4 1047, 61453 ####[place] [address] [address] CBC W/DIFFon 10-23-2017 ABS BASOPHILS 0.0 10*3/uL Normal 0.0-0.2 [facility] Comment on above: Performed By: #### 4 2947, 76696 ####[address] ABS IMM GRANS 0.1 10*3/uL Normal 0.0-0.2 [facility] Comment on above: Performed By: #### 5 0447, 74492 ####[address] ABS NEUTROPHILS 5.8 10*3/uL Normal 1.6-7.6 The [facility] Comment on above: Performed By: #### 4 9147, 83824 ####[address] Basophils Auto #/vol (Bld) 0.2 % Normal 0.0-1.0 [facility] Comment on above: Performed By: #### 5 4447, 20195 ####[place] [address] [address] Eosinophils Auto #/vol (Bld) 0.1 10*3/uL Normal 0.0-0.5 [facility] Comment on above: Performed By: #### 4 6447, 58537 ####[address] Eosinophils/100 WBC Auto (Bld) 0.7 % Normal 0.0-6.0 [facility] Comment on above: Performed By: #### 4 0147, 57374 ####[facility].[address] Erythrocyte distribution width Auto Ratio (RBC) 14.6 % Normal 11.5-15.0 [facility] Comment on above: Performed By: #### 4 3847, 28341 ####[facility] Hematocrit Auto Volume Fraction (Bld) 44.2 % Normal 36.0-45.0 The [facility] Comment on above: Performed By: #### 4 8717, 75702 ####[facility] Hemoglobin mass conc (Bld) 14.2 g/dL Normal 12.0-15.0 [facility] Comment on above: Performed By: #### 4 5915, 94275 ####[facility].[address] IMMATURE GRANS 1.4 % High 0.0-1.0 [facility] Comment on above: Performed By: #### 4 1705, 32678 ####[facility] Lymphocytes Auto #/vol (Bld) 2.1 10*3/uL Normal 1.2-4.0 [facility] Comment on above: Performed By: #### 4 0647, 90378 ####[facility] Lymphocytes/100 WBC Auto (Bld) 22.5 % Normal 20.0-45.0 [facility] Comment on above: Performed By: #### 4 9067, 10119 ####[facility] MCH Auto Entitic mass (RBC) 28.5 pg Normal 27.0-33.0 [facility] Comment on above: Performed By: #### 4 8697, 51590 ####[facility].[address] MCHC Auto mass conc (RBC) 32.1 g/dL Normal 32.0-35.0 [facility] Comment on above: Performed By: #### 4 4451, 18372 ####[facility] MCV Auto Entitic volume (RBC) 88.8 fL Normal 82.0-98.0 [facility] Comment on above: Performed By: #### 4 5691, 56195 ####[address] Monocytes Auto #/vol (Bld) 1.1 10*3/uL High 0.1-1.0 [facility] Comment on above: Performed By: #### 4 8308, 85919 ####[address] MONOS 12.0 % Normal 5.0-12.0 [facility] Comment on above: Performed By: #### 4 2405, 70280 ####[facility].[address] Neutrophils/100 WBC Auto (Bld) 63.2 % Normal 40.0-72.0 [facility] Comment on above: Performed By: #### 4 7585, 50594 ####[place] [address] [facility].[address] Nucleated RBC/100 WBC Ratio (Bld) 0 % Normal 0-0 [facility] Comment on above: Performed By: #### 4 2367, 21703 ####[facility].[address] PLAT CNT 241 10*3/uL Normal 150-400 The [facility] Comment on above: Performed By: #### 4 6447, 43263 ####[facility] RBC Auto #/vol (Bld) 4.98 10*6/uL Normal 3.80-5.00 Th [facility] Comment on above: Performed By: #### 4 6447, 70085 ####[facility].[address] WBC Auto #/vol (Bld) 9.14 10*3/uL Normal 4.00-10.60 [facility] Comment on above: Performed By: #### 4 6447, 47575 ####[facility] COMP METABOLIC PANELon 10-23 Albumin mass conc 3.8 g/dL Normal 3.5-5.7 [facility] Comment on above: Performed By: #### 4 6447, 93790 ####[facility] ALKALINE PHOSPH 96 IU/L Normal 34-104 The [facility] Comment on above: Performed By: #### 4 6447, 98800 ####[facility].[address] ALT enzyme act/vol 15 U/L Normal 7-52 The [facility] Comment on above: Performed By: #### 4 6447, 10627 ####[facility].[address] AST enzyme act/vol 13 U/L Normal 13-39 [facility] Comment on above: Performed By: #### 4 6447, 90918 ####[facility] [place] [address], [place] Bilirubin mass conc 0.4 mg/dL Normal 0.3-1.0 The [facility] Comment on above: Performed By: #### 4 3901, 55546 ####[facility] [place] [address], [place] Calcium mass conc 9.2 mg/dL Normal 8.6-10.3 [facility] Comment on above: Performed By: #### 4 8835, 82229 ####[facility] [place] [address], [place] Chloride molar conc 102 mmol/L Normal 98-107 The [facility] Comment on above: Performed By: #### 4 8039, 66440 ####[facility] [place] [address], [place] CO2 molar conc 29 mmol/L Normal 21-31 The [facility] Comment on above: Performed By: #### 4 9788, 22092 ####[facility] [place] [address], [place] Creatinine mass conc 0.80 mg/dL Normal 0.60-1.20 [facility] Comment on above: Performed By: #### 4 6447, 92575 ####[facility] [place] [address], [place] GFR/1.73 sq M predicted among blacks MDRD vol rate/area (S/P/Bld) mL/min/{1.73_m2} Normal >60 The [facility] Comment on above: Performed By: #### 4 8930, 40409 ####[facility] [place] [address], [place] GFR/1.73 sq M predicted among non-blacks MDRD vol rate/area (S/P/Bld) mL/min/{1.73_m2} Normal >60 The [facility] Comment on above: Performed By: #### 4 6447, 39534 ####[facility] [place] [address], [facility] Glucose mass conc 85 mg/dL Normal 70-100 The [facility] Comment on above: Performed By: #### 4 6447, 74657 ####[facility] Potassium molar conc 3.3 mmol/L Low 3.5-5.1 [facility] Comment on above: Performed By: #### 4 6447, 27272 ####[place] [address] [facility].[address] Protein mass conc 6.5 g/dL Normal 6.0-8.3 The [facility] Comment on above: Performed By: #### 4 6447, 55800 ####[place] [address] [facility].[address] Sodium molar conc 139 mmol/L Normal 136-145 The [facility] Comment on above: Performed By: #### 4 6447, 51519 ####[place] [address] [facility].[address] Urea nitrogen mass conc 18 mg/dL Normal 7-25 [facility] Comment on above: Performed By: #### 4 6447, 78033 ####[facility].[address] DIRECT BILIon 10-23-2017 Bilirubin.direct mass conc 0.1 mg/dL Normal 0.0-0.2 [facility] Comment on above: Performed By: #### 4 6447, 97155 ####[facility]3000 [place] [address], [facility] EVEROLIMUS 10326ay 8 EVEROLIMUS 4.0 ng/mL Normal [facility] Comment on above: Result Comment: Ther apeutic [...] the transplantcenter.Test developed and characteristics determined by [employer] [employer]. See Compliance Statement B: NCTech/CSPerformed by [facility],[address] [place] [address] rbd.[employer], Leonid Antonio MD - Lab. Director LIPID PROFILEon 10-23-2017 Cholesterol in HDL mass conc 53 mg/dL Normal 23-92 [facility] Comment on above: Result Comment: Slig ht variation in normal range could be due to gender and/or age.HDL CHOLESTEROL REFERENCE RANGE:20 years and older Cardiovascular Risk> or =60 mg/dL [id number] TO 59 mg/dL Low Risk<40 mg/dL High Risk Performed By: #### 8 2105, 17200 ####[facility] [address] Cholesterol in LDL mass conc 68 mg/dL Normal 0-130 [facility] Comment on above: Result Comment: LDL IS A CALCULATIONLDL IS ONLY VALID IF THE TRIG IS LESS THAN 400. Performed By: #### 5 8692, 50242 ####[facility] Cholesterol mass conc 135 mg/dL Normal 120-200 [facility] Comment on above: Result Comment: CHOL ESTEROL REFERENCE RANGE:20 YEARS AND OLDER CARDIOVASCULAR RISKLess than 200 mg/dl Low Klva308 to 239 mg/dl Borderline Gkkg420 mg/dl and greater High Risk Performed By: #### 4 7961, 33547 ####[address] Cholesterol.total/Cho lesterol in HDL mass ratio 2.5 {ratio} Normal .0-4.5 [facility] Comment on above: Performed By: #### 4 1463, 65055 ####[address] NON-HDL CHOLESTEROL 82 mg/dL Normal The [facility] Comment on above: Performed By: #### 4 8339, 30637 ####[address] Triglyceride mass conc 72 mg/dL Normal 40-149 [facility] Comment on above: Result Comment: TRIG LYCERIDE REFERENCE RANGE:20 YEARS AND OLDER CARDIOVASCULAR RISKLESS THAN 150 mg/dl LOW [id number] TO 199 mg/dl BORDERLINE CUZZ735 mg/dl AND GREATER HIGH RISK Performed By: #### 4 1933, 86051 ####[address] [place] [address], [facility] VLDL CHOL 14 mg/dL Normal 0-40 [facility] Comment on above: Performed By: #### 4 8601, 06171 ####[address] [place] [address], [facility] MAGNESIUM BLOODon 10-23-2017 Magnesium mass conc 1.8 mg/dL Low 1.9-2.7 The [facility] Comment on above: Performed By: #### 4 0055, 13352 ####[place] [id number], [facility] PHOSPHORUS BLOODon 8 Phosphate mass conc 3.7 mg/dL Normal 2.5-5.0 The [facility] Comment on above: Performed By: #### 4 6447, 10083 ####[facility] [place] [address], [facility] TACROLIMUSon 10-23-2017 Tacrolimus mass conc (Bld) 2.6 ng/mL Low 5.0-20.0 [facility] Comment on above: Result Comment: The [facility] Tacrolimus assay is a delayed one-step immunoassayfor the quantitative determination of tacrolimus in human whole bloodusing the chemiluminescent microparticle immunoassay (CMIA) technologywith flexible assay protocols, referred to as Chemiflex. Performed By: #### 4 6447, 01392 ####[address] URIC ACID BLOODon 10-23-2017 Urate mass conc 4.3 mg/dL Normal 2.3-6.6 The [facility] Comment on above: Performed By: #### 4 6447, 63020 ####[address] CBC W/DIFFon 09-25-2017 ABS BASOPHILS 0.0 10*3/uL Normal 0.0-0.2 The [facility] Comment on above: Performed By: #### 4 1000, 49777, 36035, 74043, 38039, 56522 ####[facility].[address] ABS IMM GRANS 0.0 10*3/uL Normal 0.0-0.2 The [facility] Comment on above: Performed By: #### 4 1000, 41060, 73608, 66209, 28097, 07843 ####[address] ABS NEUTROPHILS 4.4 10*3/uL Normal 1.6-7.6 The [facility] Comment on above: Performed By: #### 4 1000, 63972, 94900, 84075, 87607, 25327 ####[facility] Basophils Auto #/vol (Bld) 0.2 % Normal 0.0-1.0 [facility] Comment on above: Performed By: #### 4 1000, 44565, 52400, 90976, 52266, 60905 ####[facility] Eosinophils Auto #/vol (Bld) 0.1 10*3/uL Normal 0.0-0.5 [facility] Comment on above: Performed By: #### 4 1000, 84459, 21750, 82313, 54927, 66978 ####[facility] Eosinophils/100 WBC Auto (Bld) 2.2 % Normal 0.0-6.0 [facility] Comment on above: Performed By: #### 4 1000, 38584, 84946, 14248, 27664, 39564 ####[facility] Erythrocyte distribution width Auto Ratio (RBC) 14.0 % Normal 11.5-15.0 [facility] Comment on above: Performed By: #### 4 1000, 19337, 68191, 55712, 24000, 78989 ####[facility] Hematocrit Auto Volume Fraction (Bld) 44.8 % Normal 36.0-45.0 The [facility] Comment on above: Performed By: #### 4 1000, 09256, 45748, 15723, 41546, 20804 ####[facility] Hemoglobin mass conc (Bld) 14.5 g/dL Normal 12.0-15.0 [facility] Comment on above: Performed By: #### 4 1000, 21521, 53978, 01103, 63358, 86897 ####[facility] IMMATURE GRANS 0.3 % Normal 0.0-1.0 The [facility] Comment on above: Performed By: #### 4 1000, 60566, 35584, 93804, 76633, 95686 ####[facility] Lymphocytes Auto #/vol (Bld) 1.1 10*3/uL Low 1.2-4.0 [facility] Comment on above: Performed By: #### 4 1000, 70874, 82820, 38643, 14469, 38401 ####[facility] Lymphocytes/100 WBC Auto (Bld) 17.0 % Low 20.0-45.0 [facility] Comment on above: Performed By: #### 4 1000, 02997, 50261, 16693, 64054, 09897 ####[facility] MCH Auto Entitic mass (RBC) 28.6 pg Normal 27.0-33.0 [facility] Comment on above: Performed By: #### 4 1000, 57352, 60950, 92246, 26411, 47176 ####[facility] MCHC Auto mass conc (RBC) 32.4 g/dL Normal 32.0-35.0 [facility] Comment on above: Performed By: #### 4 1000, 67893, 07214, 41627, 81341, 60672 ####[facility] MCV Auto Entitic volume (RBC) 88.4 fL Normal 82.0-98.0 [facility] Comment on above: Performed By: #### 4 1000, 95576, 99332, 08128, 80225, 94693 ####[facility] Monocytes Auto #/vol (Bld) 0.7 10*3/uL Normal 0.1-1.0 [facility] Comment on above: Performed By: #### 4 1000, 31366, 29381, 97473, 52899, 63177 ####[facility]3000 [facility] MONOS 11.5 % Normal 5.0-12.0 [facility] Comment on above: Performed By: #### 4 1000, 75502, 72949, 94146, 92010, 64621 ####[facility].[address] Neutrophils/100 WBC Auto (Bld) 68.8 % Normal 40.0-72.0 [facility] Comment on above: Performed By: #### 4 1000, 71238, 76324, 03633, 92907, 00382 ####[facility] Nucleated RBC/100 WBC Ratio (Bld) 0 % Normal 0-0 [facility] Comment on above: Performed By: #### 4 1000, 48131, 75911, 00833, 70925, 35427 ####[facility] PLAT CNT 212 10*3/uL Normal 150-400 The [facility] Comment on above: Performed By: #### 4 1000, 80516, 12928, 55314, 33352, 20180 ####[facility] [place] [address], [facility] RBC Auto #/vol (Bld) 5.07 10*6/uL High 3.80-5.00 Th e [facility] Comment on above: Performed By: #### 4 1000, 76142, 61537, 22439, 03989, 53752 ####[facility] [place] [address], [facility] WBC Auto #/vol (Bld) 6.34 10*3/uL Normal 4.00-10.60 [facility] Comment on above: Performed By: #### 4 1000, 48614, 66932, 67883, 51058, 34163 ####[facility] COMP METABOLIC PANELon 09-25 Albumin mass conc 4.0 g/dL Normal 3.5-5.7 The [facility] Comment on above: Performed By: #### 4 6447, 29418 ####[facility] ALKALINE PHOSPH 112 IU/L High 34-104 The [facility] Comment on above: Performed By: #### 4 6447, 99823 ####[facility] ALT enzyme act/vol 11 U/L Normal 7-52 The [facility] Comment on above: Performed By: #### 4 6447, 89586 ####[facility] AST enzyme act/vol 17 U/L Normal 13-39 The [facility] Comment on above: Performed By: #### 4 6447, 07898 ####[facility] [place] [address], [facility] Bilirubin mass conc 0.5 mg/dL Normal 0.3-1.0 The [facility] Comment on above: Performed By: #### 4 2447, 97743 ####[facility] [place] [address], [facility] Calcium mass conc 9.6 mg/dL Normal 8.6-10.3 The [facility] Comment on above: Performed By: #### 4 4489, 38326 ####[facility]3000 [facility].[place] [id number], [facility] Chloride molar conc 104 mmol/L Normal 98-107 The [facility] Comment on above: Performed By: #### 8 5245, 52997 ####[facility] [place] [address], [place] CO2 molar conc 28 mmol/L Normal 21-31 The [facility] Comment on above: Performed By: #### 8 8941, 04526 ####[facility]3000 [place] [address], [facility] Creatinine mass conc 0.83 mg/dL Normal 0.60-1.20 [facility] Comment on above: Performed By: #### 8 2614, 00651 ####[facility]3000 [place] [address], [facility] GFR/1.73 sq M predicted among blacks MDRD vol rate/area (S/P/Bld) mL/min/{1.73_m2} Normal >60 The [facility] Comment on above: Performed By: #### 4 8721, 16502 ####[facility].[place] [id number], [facility] GFR/1.73 sq M predicted among non-blacks MDRD vol rate/area (S/P/Bld) mL/min/{1.73_m2} Normal >60 The [facility] Comment on above: Performed By: #### 5 3962, 82361 ####[facility] Glucose mass conc 91 mg/dL Normal 70-100 The [facility] Comment on above: Performed By: #### 4 6447, 29958 ####[facility] Potassium molar conc 3.9 mmol/L Normal 3.5-5.1 [facility] Comment on above: Performed By: #### 4 6447, 61254 ####[facility].[address] Protein mass conc 7.0 g/dL Normal 6.0-8.3 The [facility] Comment on above: Performed By: #### 4 6447, 11878 ####[place] [address] [facility].[address] Sodium molar conc 140 mmol/L Normal 136-145 The [facility] Comment on above: Performed By: #### 4 6447, 55637 ####[facility].[address] Urea nitrogen mass conc 15 mg/dL Normal 7-25 [facility] Comment on above: Performed By: #### 4 6447, 29665 ####[place] [address] [facility] DIRECT BILIon 09-25-2017 Bilirubin.direct mass conc 0.1 mg/dL Normal 0.0-0.2 [facility] Comment on above: Performed By: #### 4 6447, 58586 ####[address] EVEROLIMUS [id number] 8 EVEROLIMUS 5.1 ng/mL Normal [facility] Comment on above: Result Comment: Ther apeutic [...] the transplantcenter.Test developed and characteristics determined by [employer]. See Compliance Statement B: NCTech/CSPerformed by [facility],[address] [place] [address] zko.[employer], Leonid Antonio MD - Lab. Director LIPID PROFILEon 09-25-2017 Cholesterol in HDL mass conc 48 mg/dL Normal 23-92 [facility] Comment on above: Result Comment: Slig ht variation in normal range could be due to gender and/or age.HDL CHOLESTEROL REFERENCE RANGE:20 years and older Cardiovascular Risk> or =60 mg/dL Mrzxidlyh69 TO 59 mg/dL Low Risk<40 mg/dL High Risk Performed By: #### 8 3735, 08130 ####[facility] [place] [address], [facility] Cholesterol in LDL mass conc 69 mg/dL Normal 0-130 [facility] Comment on above: Result Comment: LDL IS A CALCULATIONLDL IS ONLY VALID IF THE TRIG IS LESS THAN 400. Performed By: #### 3 4697, 11874 ####[facility] [place] [address], [facility] Cholesterol mass conc 138 mg/dL Normal 120-200 [facility] Comment on above: Result Comment: CHOL ESTEROL REFERENCE RANGE:20 YEARS AND OLDER CARDIOVASCULAR RISKLess than 200 mg/dl Low Foqe155 to 239 mg/dl Borderline Ihfv531 mg/dl and greater High Risk Performed By: #### 4 5494, 47666 ####[facility] Cholesterol.total/Cho lesterol in HDL mass ratio 2.9 {ratio} Normal .0-4.5 [facility] Comment on above: Performed By: #### 4 3384, 44543 ####[facility] NON-HDL CHOLESTEROL 90 mg/dL Normal [facility] Comment on above: Performed By: #### 4 8442, 97932 ####[facility] Triglyceride mass conc 103 mg/dL Normal 40-149 [facility] Comment on above: Result Comment: TRIG LYCERIDE REFERENCE RANGE:20 YEARS AND OLDER CARDIOVASCULAR RISKLESS THAN 150 mg/dl LOW [id number] TO 199 mg/dl BORDERLINE [id number] mg/dl AND GREATER HIGH RISK Performed By: #### 4 7655, 49433 ####[facility] VLDL CHOL 21 mg/dL Normal 0-40 [facility] Comment on above: Performed By: #### 4 9304, 42808 ####[facility] [place] [address], [facility] MAGNESIUM BLOODon 09-25-2017 Magnesium mass conc 1.8 mg/dL Low 1.9-2.7 The [facility] Comment on above: Performed By: #### 1 0487, 57926 ####[facility] [place] [address], [facility] PHOSPHORUS BLOODon 8 Phosphate mass conc 3.4 mg/dL Normal 2.5-5.0 The [facility] Comment on above: Performed By: #### 4 6447, 71070 ####[facility].[address] TACROLIMUSon 09-25-2017 Tacrolimus mass conc (Bld) 3.6 ng/mL Low 5.0-20.0 [facility] Comment on above: Result Comment: The [facility] Tacrolimus assay is a delayed one-step immunoassayfor the quantitative determination of tacrolimus in human whole bloodusing the chemiluminescent microparticle immunoassay (CMIA) technologywith flexible assay protocols, referred to as Chemiflex. Performed By: #### 4 6447, 74685 ####[facility] URIC ACID BLOODon 09-25-2017 Urate mass conc 4.7 mg/dL Normal 2.3-6.6 The [facility] Comment on above: Performed By: #### 4 6447, 36692 ####[facility] BK VIRUS QUANTITATION PCR BL OODon 08-26-2017 BKV QUANT PCR Not detected Normal The [facility] Comment on above: Result Comment: Meth od: BK virus was measured by quantitative polymerase chain reactionusing a TaqMan probe targeting the polyomavirus BK APICULTURIST-1 gene.The lower limit of quantitation of the assay is 500 copies of BK genomeper milliliter of plasma or urine, and any detectable BK DNA below thatlevel is reported as: Detected, <500 copies/ml. Serial BK virusmeasurement can be used to monitor disease activity. (Reference:Kelsie vaughanl. J CLIN MICRO 2004; 42:8505-5832).This test was developed and its performance characteristics determinedby the [facility] Molecular Diagnostics Laboratory. It has not been approvedby the [place] Food and Drug Administration. However, such approval is notrequired for clinical implementation, and test results have been shownto be clinically useful. This laboratory is CAP accredited and CLIAcertified to perform high complexity testing. Performed By: #### 4 1000, 54952, 41826, 01148, 57260, 86442 ####[facility].[address] LOG 10 COPIES Not detected Normal The [facility] Comment on above: Performed By: #### 4 1000, 85275, 15110, 05679, 67040, 80580 ####[facility] HEALTH.[address] CBC W/DIFFon 08-26-2017 ABS BASOPHILS 0.0 10*3/uL Normal 0.0-0.2 The [facility] Comment on above: Performed By: #### 4 1000, 50855, 98410, 42855, 90757, 28043 ####[facility].[address] ABS IMM GRANS 0.0 10*3/uL Normal 0.0-0.2 The [facility] Comment on above: Performed By: #### 4 1000, 89269, 90991, 29288, 16772, 98210 ####[facility].[address] ABS NEUTROPHILS 4.5 10*3/uL Normal 1.6-7.6 The [facility] Comment on above: Performed By: #### 4 1000, 27177, 92216, 87574, 15501, 79442 ####[facility].[address] Basophils Auto #/vol (Bld) 0.2 % Normal 0.0-1.0 The [facility] Comment on above: Performed By: #### 4 1000, 76692, 47989, 09373, 48721, 38409 ####[facility].[address] Eosinophils Auto #/vol (Bld) 0.2 10*3/uL Normal 0.0-0.5 The [facility] Comment on above: Performed By: #### 4 1000, 25359, 97253, 66584, 09610, 41855 ####[facility] Eosinophils/100 WBC Auto (Bld) 2.4 % Normal 0.0-6.0 The [facility] Comment on above: Performed By: #### 4 1000, 62418, 95249, 79292, 91917, 07039 ####[facility] Erythrocyte distribution width Auto Ratio (RBC) 14.0 % Normal 11.5-15.0 The [facility] Comment on above: Performed By: #### 4 1000, 43360, 61686, 52204, 25774, 31857 ####[facility] Hematocrit Auto Volume Fraction (Bld) 44.9 % Normal 36.0-45.0 [facility] Comment on above: Performed By: #### 4 1000, 08511, 24611, 37183, 75533, 30088 ####[facility].[address] Hemoglobin mass conc (Bld) 14.9 g/dL Normal 12.0-15.0 The [facility] Comment on above: Performed By: #### 4 1000, 88091, 84261, 83397, 12762, 17893 ####[facility] IMMATURE GRANS 0.5 % Normal 0.0-1.0 The [facility] Comment on above: Performed By: #### 4 1000, 11375, 83453, 27747, 39123, 61729 ####[facility] Lymphocytes Auto #/vol (Bld) 1.0 10*3/uL Low 1.2-4.0 The [facility] Comment on above: Performed By: #### 4 1000, 86287, 65496, 43223, 45268, 56341 ####[facility].[address] Lymphocytes/100 WBC Auto (Bld) 15.8 % Low 20.0-45.0 The [facility] Comment on above: Performed By: #### 4 1000, 53851, 51589, 84260, 88147, 76006 ####[facility].[address] MCH Auto Entitic mass (RBC) 29.1 pg Normal 27.0-33.0 The [facility] Comment on above: Performed By: #### 4 1000, 25616, 65894, 66364, 91851, 59557 ####[facility].[address] MCHC Auto mass conc (RBC) 33.2 g/dL Normal 32.0-35.0 The [facility] Comment on above: Performed By: #### 4 1000, 07260, 50500, 34471, 31607, 32317 ####[facility] MCV Auto Entitic volume (RBC) 87.7 fL Normal 82.0-98.0 The [facility] Comment on above: Performed By: #### 4 1000, 61917, 91151, 56588, 66481, 32764 ####[facility].[address] Monocytes Auto #/vol (Bld) 0.7 10*3/uL Normal 0.1-1.0 The [facility] Comment on above: Performed By: #### 4 1000, 24449, 31284, 38978, 73068, 02295 ####[facility] MONOS 10.6 % Normal 5.0-12.0 [facility] Comment on above: Performed By: #### 4 1000, 97178, 91805, 23103, 32074, 97349 ####[facility] Neutrophils/100 WBC Auto (Bld) 70.5 % Normal 40.0-72.0 The [facility] Comment on above: Performed By: #### 4 1000, 94802, 69096, 87455, 39049, 65819 ####[facility] Nucleated RBC/100 WBC Ratio (Bld) 0 % Normal 0-0 The [facility] Comment on above: Performed By: #### 4 1000, 93667, 72929, 34189, 22846, 35158 ####[facility] PLAT CNT 231 10*3/uL Normal 150-400 The [facility] Comment on above: Performed By: #### 4 1000, 61742, 09071, 55207, 19978, 56238 ####[facility] RBC Auto #/vol (Bld) 5.12 10*6/uL High 3.80-5.00 Th e [facility] Comment on above: Performed By: #### 4 1000, 14142, 48063, 06504, 11228, 61663 ####[facility] WBC Auto #/vol (Bld) 6.32 10*3/uL Normal 4.00-10.60 Th e [facility] Comment on above: Performed By: #### 4 1000, 74646, 17839, 77378, 87754, 65744 ####[facility] [place] [address], [facility] COMP METABOLIC PANELon 08-26 Albumin mass conc 4.3 g/dL Normal 3.5-5.7 The [facility] Comment on above: Performed By: #### 4 1000, 69542, 69923, 49344, 20469, 12332 ####[facility] [place] [address], [facility] ALKALINE PHOSPH 125 IU/L High 34-104 The [facility] Comment on above: Performed By: #### 4 1000, 31002, 46240, 69306, 56410, 32688 ####[facility] [place] [address], [facility] ALT enzyme act/vol 17 U/L Normal 7-52 The [facility] Comment on above: Performed By: #### 4 1000, 86322, 31212, 62707, 21152, 10154 ####[facility] [place] [address], [facility] AST enzyme act/vol 23 U/L Normal 13-39 The [facility] Comment on above: Performed By: #### 4 1000, 07736, 10854, 98855, 26155, 13603 ####[facility] [place] [address], [facility] Bilirubin mass conc 0.4 mg/dL Normal 0.3-1.0 The [facility] Comment on above: Performed By: #### 4 1000, 08286, 88294, 83691, 05396, 45170 ####[facility] [place] [address], [facility] Calcium mass conc 9.6 mg/dL Normal 8.6-10.3 The [facility] Comment on above: Performed By: #### 4 1000, 11959, 62137, 71872, 76792, 81118 ####[facility] [place] [address], [facility] Chloride molar conc 104 mmol/L Normal 98-107 [facility] Comment on above: Performed By: #### 4 1000, 31997, 71488, 57062, 51150, 51613 ####[facility] [place] [address], [facility] CO2 molar conc 27 mmol/L Normal 21-31 The [facility] Comment on above: Performed By: #### 4 1000, 40514, 26692, 88351, 06875, 52942 ####[facility] [place] [address], [facility] Creatinine mass conc 0.77 mg/dL Normal 0.60-1.20 [facility] Comment on above: Performed By: #### 4 1000, 98539, 17169, 15560, 65891, 43340 ####[facility] [place] [address], [facility] GFR/1.73 sq M predicted among blacks MDRD vol rate/area (S/P/Bld) mL/min/{1.73_m2} Normal >60 [facility] Comment on above: Performed By: #### 4 1000, 03423, 20840, 67534, 29702, 95018 ####[facility] [place] [address], [facility] GFR/1.73 sq M predicted among non-blacks MDRD vol rate/area (S/P/Bld) mL/min/{1.73_m2} Normal >60 The [facility] Comment on above: Performed By: #### 4 1000, 97242, 96996, 27675, 89544, 15500 ####[facility] [place] [address], [place] Glucose mass conc 95 mg/dL Normal 70-100 The [facility] Comment on above: Performed By: #### 4 1000, 63993, 44525, 26846, 23943, 54285 ####[facility] Potassium molar conc 4.1 mmol/L Normal 3.5-5.1 The [facility] Comment on above: Performed By: #### 4 1000, 94152, 61213, 93547, 64070, 49461 ####[facility] Protein mass conc 7.3 g/dL Normal 6.0-8.3 The [facility] Comment on above: Performed By: #### 4 1000, 21395, 37378, 94773, 48071, 11680 ####[facility] Sodium molar conc 139 mmol/L Normal 136-145 The [facility] Comment on above: Performed By: #### 4 1000, 78009, 30381, 55689, 68678, 33859 ####[facility] Urea nitrogen mass conc 12 mg/dL Normal 7-25 The [facility] Comment on above: Performed By: #### 4 1000, 19305, 65514, 28120, 40985, 41742 ####[facility] DIRECT BILIon 08-26-2017 Bilirubin.direct mass conc 0.1 mg/dL Normal 0.0-0.2 The [facility] Comment on above: Performed By: #### 4 1000, 71514, 08751, 37474, 22409, 42043 ####[facility] EVEROLIMUS 03268ws 8 EVEROLIMUS 5.6 ng/mL Normal The [facility] Comment on above: Result Comment: Ther apeutic [...] the transplantcenter.Test developed and characteristics determined by [employer]. See Compliance Statement B: NCTech/CSPerformed by [facility],[address] [place] [id number] nke.[employer], Leonid Antonio MD - Lab. Director HEMOGLOBIN A1Con 08-26-2017 Glucose mass conc 114 mg/dL Normal 70-126 The [facility] Comment on above: Performed By: #### 4 1000, 80179, 54154, 29577, 36011, 78288 ####[facility] [place] [address], [facility] Hemoglobin A1c/Hemoglobin.total mass fraction (Bld) 5.6 % Normal 4.0-6.0 The [facility] Comment on above: Performed By: #### 4 1000, 32432, 15243, 97449, 61317, 49558 ####[facility] [place] [address], [facility] LIPID PROFILEon 08-26-2017 Cholesterol in HDL mass conc 49 mg/dL Normal 23-92 [facility] Comment on above: Result Comment: Slig ht variation in normal range could be due to gender and/or age.HDL CHOLESTEROL REFERENCE RANGE:20 years and older Cardiovascular Risk> or =60 mg/dL [id number] TO 59 mg/dL Low Risk<40 mg/dL High Risk Performed By: #### 4 1000, 04910, 61995, 74493, 24051, 76100 ####[facility] [place] [address], [place] Cholesterol in LDL mass conc 76 mg/dL Normal 0-130 The [facility] Comment on above: Result Comment: LDL IS A CALCULATIONLDL IS ONLY VALID IF THE TRIG IS LESS THAN 400. Performed By: #### 4 1000, 21520, 48200, 39237, 64024, 26867 ####[facility] [place] [address], [facility] Cholesterol mass conc 152 mg/dL Normal 120-200 The [facility] Comment on above: Result Comment: CHOL ESTEROL REFERENCE RANGE:20 YEARS AND OLDER CARDIOVASCULAR RISKLess than 200 mg/dl Low Cdna998 to 239 mg/dl Borderline [id number] mg/dl and greater High Risk Performed By: #### 4 1000, 38847, 25841, 57838, 34051, 76405 ####[facility] [place] [address], [facility] Cholesterol.total/Cho lesterol in HDL mass ratio 3.1 {ratio} Normal .0-4.5 The [facility] Comment on above: Performed By: #### 4 1000, 62910, 06462, 33916, 77179, 94374 ####[facility] [place] [address], [place] NON-HDL CHOLESTEROL 103 mg/dL Normal The [facility] Comment on above: Performed By: #### 4 1000, 66910, 00777, 44641, 33797, 31337 ####[facility] [place] [address], [place] Triglyceride mass conc 133 mg/dL Normal 40-149 The [facility] Comment on above: Result Comment: TRIG LYCERIDE REFERENCE RANGE:20 YEARS AND OLDER CARDIOVASCULAR RISKLESS THAN 150 mg/dl LOW [id number] TO 199 mg/dl BORDERLINE [id number] mg/dl AND GREATER HIGH RISK Performed By: #### 4 1000, 23684, 23619, 47133, 73260, 49402 ####[facility] VLDL CHOL 27 mg/dL Normal 0-40 The [facility] Comment on above: Performed By: #### 4 1000, 45998, 88454, 82430, 02124, 34214 ####[facility] MAGNESIUM BLOODon 08-26-2017 Magnesium mass conc 1.9 mg/dL Normal 1.9-2.7 The [facility] Comment on above: Performed By: #### 4 1000, 10066, 04585, 78795, 77346, 14455 ####[facility] [place] [address], [facility] PHOSPHORUS BLOODon 8 Phosphate mass conc 3.4 mg/dL Normal 2.5-5.0 The [facility] Comment on above: Performed By: #### 4 1000, 42656, 61137, 10539, 04578, 75854 ####[facility].[address] TACROLIMUSon 08-26-2017 Tacrolimus mass conc (Bld) 4.3 ng/mL Low 5.0-20.0 The [facility] Comment on above: Result Comment: The [facility] [employer] [employer] Tacrolimus assay is a delayed one-step immunoassayfor the quantitative determination of tacrolimus in human whole bloodusing the chemiluminescent microparticle immunoassay (CMIA) technologywith flexible assay protocols, referred to as Chemiflex. Performed By: #### 4 1000, 42686, 47184, 13467, 76543, 27859 ####[facility] URIC ACID BLOODon 08-26-2017 Urate mass conc 4.6 mg/dL Normal 2.3-6.6 The [facility] Comment on above: Performed By: #### 4 1000, 58733, 72057, 20426, 32320, 80589 ####[facility] CBC W/DIFFon 07-23-2017 ABS BASOPHILS 0.0 10*3/uL Normal 0.0-0.2 The [facility] Comment on above: Performed By: #### 4 1000, 43055, 51040, 58510, 25930, 75393 ####[facility] ABS IMM GRANS 0.0 10*3/uL Normal 0.0-0.2 The [facility] Comment on above: Performed By: #### 4 1000, 60065, 26291, 39724, 98138, 48719 ####[facility] ABS NEUTROPHILS 4.4 10*3/uL Normal 1.6-7.6 The [facility] Comment on above: Performed By: #### 4 1000, 75182, 89398, 58155, 62280, 70883 ####[facility].[address] Basophils Auto #/vol (Bld) 0.2 % Normal 0.0-1.0 The [facility] Comment on above: Performed By: #### 4 1000, 13819, 20310, 48420, 61614, 03671 ####[facility] Eosinophils Auto #/vol (Bld) 0.1 10*3/uL Normal 0.0-0.5 The [facility] Comment on above: Performed By: #### 4 1000, 17957, 19711, 74816, 90975, 33084 ####[facility] Eosinophils/100 WBC Auto (Bld) 2.1 % Normal 0.0-6.0 The [facility] Comment on above: Performed By: #### 4 1000, 56013, 97051, 51623, 45147, 32196 ####[facility] Erythrocyte distribution width Auto Ratio (RBC) 13.7 % Normal 11.5-15.0 The [facility] Comment on above: Performed By: #### 4 1000, 29676, 19034, 91165, 61487, 27699 ####[facility].[address] Hematocrit Auto Volume Fraction (Bld) 44.4 % Normal 36.0-45.0 The [facility] Comment on above: Performed By: #### 4 1000, 76942, 61538, 84341, 22795, 43445 ####[facility].[address] Hemoglobin mass conc (Bld) 14.7 g/dL Normal 12.0-15.0 The [facility] Comment on above: Performed By: #### 4 1000, 58225, 96599, 82490, 34839, 98291 ####[facility] IMMATURE GRANS 0.5 % Normal 0.0-1.0 The [facility] Comment on above: Performed By: #### 4 1000, 55174, 12231, 49590, 47695, 51607 ####[facility] Lymphocytes Auto #/vol (Bld) 1.0 10*3/uL Low 1.2-4.0 The [facility] Comment on above: Performed By: #### 4 1000, 51528, 99637, 11169, 19057, 62128 ####[facility]3000 [facility] Lymphocytes/100 WBC Auto (Bld) 15.5 % Low 20.0-45.0 The [facility] Comment on above: Performed By: #### 4 1000, 13767, 63111, 71276, 77979, 55190 ####[facility] MCH Auto Entitic mass (RBC) 28.9 pg Normal 27.0-33.0 The [facility] Comment on above: Performed By: #### 4 1000, 41594, 23324, 82514, 53791, 07974 ####[facility]3000 [facility].[address] MCHC Auto mass conc (RBC) 33.1 g/dL Normal 32.0-35.0 The [facility] Comment on above: Performed By: #### 4 1000, 16562, 45206, 29150, 04815, 57931 ####[facility].[address] MCV Auto Entitic volume (RBC) 87.4 fL Normal 82.0-98.0 The [facility] Comment on above: Performed By: #### 4 1000, 90652, 37191, 57101, 91711, 58030 ####[facility].[address] Monocytes Auto #/vol (Bld) 0.8 10*3/uL Normal 0.1-1.0 The [facility] Comment on above: Performed By: #### 4 1000, 13875, 38873, 30679, 92484, 20964 ####[facility].[address] MONOS 12.3 % High 5.0-12.0 [facility] Comment on above: Performed By: #### 4 1000, 24867, 82041, 82508, 57348, 37199 ####[facility].[address] Neutrophils/100 WBC Auto (Bld) 69.4 % Normal 40.0-72.0 [facility] Comment on above: Performed By: #### 4 1000, 33137, 96011, 36201, 16962, 65244 ####[facility] Nucleated RBC/100 WBC Ratio (Bld) 0 % Normal 0-0 The [facility] Comment on above: Performed By: #### 4 1000, 75183, 92488, 00384, 79937, 04993 ####[facility].[address] PLAT CNT 218 10*3/uL Normal 150-400 The [facility] Comment on above: Performed By: #### 4 1000, 78160, 80534, 43648, 27443, 45218 ####[facility].[address] RBC Auto #/vol (Bld) 5.08 10*6/uL High 3.80-5.00 Th e [facility] Comment on above: Performed By: #### 4 1000, 55122, 36263, 85193, 83082, 24202 ####[facility].[address] WBC Auto #/vol (Bld) 6.3 10*3/uL Normal 4.0-10.6 [facility] Comment on above: Performed By: #### 4 1000, 94274, 23587, 81267, 08773, 12073 ####[facility].[address] COMP METABOLIC PANELon 07-23 Albumin mass conc 4.2 g/dL Normal 3.5-5.7 The [facility] Comment on above: Performed By: #### 4 1000, 78050, 07729, 34055, 83343, 28326 ####[facility] [place] [address], [facility] ALKALINE PHOSPH 113 IU/L High 34-104 The [facility] Comment on above: Performed By: #### 4 1000, 96886, 34458, 83769, 64141, 43124 ####[facility] [place] [address], [place] ALT enzyme act/vol 23 U/L Normal 7-52 The [facility] Comment on above: Performed By: #### 4 1000, 36250, 86676, 69560, 63672, 92996 ####[facility] [place] [address], [place] AST enzyme act/vol 25 U/L Normal 13-39 The [facility] Comment on above: Performed By: #### 4 1000, 41809, 62885, 38903, 27009, 02304 ####[facility] [place] [address], [place] Bilirubin mass conc 0.6 mg/dL Normal 0.3-1.0 The [facility] Comment on above: Performed By: #### 4 1000, 23513, 16423, 10455, 72671, 41089 ####[facility] [place] [address], [place] Calcium mass conc 9.6 mg/dL Normal 8.6-10.3 The [facility] Comment on above: Performed By: #### 4 1000, 91314, 54151, 01976, 92776, 96064 ####[facility] [place] [address], [place] Chloride molar conc 104 mmol/L Normal 98-107 [facility] Comment on above: Performed By: #### 4 1000, 80791, 94847, 08759, 95985, 09895 ####[facility] [place] [address], [facility] CO2 molar conc 25 mmol/L Normal 21-31 The [facility] Comment on above: Performed By: #### 4 1000, 79533, 49299, 80421, 14968, 81484 ####[facility] [place] [address], [facility] Creatinine mass conc 0.80 mg/dL Normal 0.60-1.20 [facility] Comment on above: Performed By: #### 4 1000, 84176, 18789, 98641, 94042, 64065 ####[facility] [place] [address], [facility] GFR/1.73 sq M predicted among blacks MDRD vol rate/area (S/P/Bld) mL/min/{1.73_m2} Normal >60 The [facility] Comment on above: Performed By: #### 4 1000, 92783, 49975, 50670, 22118, 68022 ####[facility] [place] [address], [facility] GFR/1.73 sq M predicted among non-blacks MDRD vol rate/area (S/P/Bld) mL/min/{1.73_m2} Normal >60 The [facility] Comment on above: Performed By: #### 4 1000, 47579, 65119, 00270, 19353, 16248 ####[facility] [place] [address], [facility] Glucose mass conc 91 mg/dL Normal 70-100 The [facility] Comment on above: Performed By: #### 4 1000, 27649, 29220, 58100, 51904, 82854 ####[facility] [place] [address], [facility] Potassium molar conc 4.0 mmol/L Normal 3.5-5.1 The [facility] Comment on above: Performed By: #### 4 1000, 29265, 00980, 37072, 74960, 28622 ####[facility] [place] [address], [facility] Protein mass conc 6.8 g/dL Normal 6.0-8.3 The [facility] Comment on above: Performed By: #### 4 1000, 88153, 64151, 02855, 61657, 05751 ####[facility] Sodium molar conc 140 mmol/L Normal 136-145 [facility] Comment on above: Performed By: #### 4 1000, 74065, 10298, 13879, 74956, 45630 ####[facility] Urea nitrogen mass conc 16 mg/dL Normal 7-25 [facility] Comment on above: Performed By: #### 4 1000, 17528, 30309, 08815, 17183, 18274 ####[facility] DIRECT BILIon 07-23-2017 Bilirubin.direct mass conc 0.2 mg/dL Normal 0.0-0.2 [facility] Comment on above: Performed By: #### 4 1000, 75421, 66990, 53427, 61595, 98548 ####[facility] [place] [address], [facility] EVEROLIMUS [id number] EVEROLIMUS 5.3 ng/mL Normal [facility] Comment on above: Result Comment: Ther apeutic [...] the transplantcenter.Test developed and characteristics determined by [employer]. See Compliance Statement B: [employer],[address] [place] [id number] [employer]mr[employer], Leonid Antonio MD - Lab. Director LIPID PROFILEon 07-23-2017 Cholesterol in HDL mass conc 45 mg/dL Normal 23-92 [facility] Comment on above: Result Comment: Slig ht variation in normal range could be due to gender and/or age.HDL CHOLESTEROL REFERENCE RANGE:20 years and older Cardiovascular Risk> or =60 mg/dL Alaeaklph01 TO 59 mg/dL Low Risk<40 mg/dL High Risk Performed By: #### 4 1000, 07230, 13360, 34242, 11940, 59083 ####[facility] [place] [address], [facility] Cholesterol in LDL mass conc 79 mg/dL Normal 0-130 [facility] Comment on above: Result Comment: LDL IS A CALCULATIONLDL IS ONLY VALID IF THE TRIG IS LESS THAN 400. Performed By: #### 4 1000, 77801, 22323, 72013, 60402, 73289 ####[facility] [place] [address], [place] Cholesterol mass conc 141 mg/dL Normal 120-200 [facility] Comment on above: Result Comment: CHOL ESTEROL REFERENCE RANGE:20 YEARS AND OLDER CARDIOVASCULAR RISKLess than 200 mg/dl Low Zhtu224 to 239 mg/dl Borderline Qzwb466 mg/dl and greater High Risk Performed By: #### 4 1000, 12102, 17000, 21959, 01915, 44698 ####[facility] [place] [address], [facility] Cholesterol.total/Cho lesterol in HDL mass ratio 3.1 {ratio} Normal .0-4.5 [facility] Comment on above: Performed By: #### 4 1000, 53270, 22777, 20539, 19940, 63915 ####[facility] NON-HDL CHOLESTEROL 96 mg/dL Normal The [facility] Comment on above: Performed By: #### 4 1000, 92158, 75518, 98680, 96362, 22703 ####[facility] Triglyceride mass conc 83 mg/dL Normal 40-149 [facility] Comment on above: Result Comment: TRIG LYCERIDE REFERENCE RANGE:20 YEARS AND OLDER CARDIOVASCULAR RISKLESS THAN 150 mg/dl LOW LTYE224 TO 199 mg/dl BORDERLINE EAKQ220 mg/dl AND GREATER HIGH RISK Performed By: #### 4 1000, 04697, 17660, 48085, 51691, 54938 ####[facility] [place] [address], [facility] VLDL CHOL 17 mg/dL Normal 0-40 [facility] Comment on above: Performed By: #### 4 1000, 91381, 31799, 02554, 82149, 43033 ####[facility] [place] [address], [facility] MAGNESIUM BLOODon 07-23-2017 Magnesium mass conc 2.0 mg/dL Normal 1.9-2.7 [facility] Comment on above: Performed By: #### 4 1000, 65642, 92294, 64517, 70636, 47723 ####[facility] [facility].[address] PHOSPHORUS BLOODon 8 Phosphate mass conc 4.0 mg/dL Normal 2.5-5.0 [facility] Comment on above: Performed By: #### 4 1000, 91924, 63415, 74354, 39223, 91119 ####[facility].[address] TACROLIMUSon 07-23-2017 Tacrolimus mass conc (Bld) 4.6 ng/mL Low 5.0-20.0 [facility] Comment on above: Result Comment: The [facility] Tacrolimus assay is a delayed one-step immunoassayfor the quantitative determination of tacrolimus in human whole bloodusing the chemiluminescent microparticle immunoassay (CMIA) technologywith flexible assay protocols, referred to as Chemiflex. Performed By: #### 4 1000, 88104, 88096, 33126, 33442, 71261 ####[facility] [facility].[address] URIC ACID BLOODon 07-23-2017 Urate mass conc 4.7 mg/dL Normal 2.3-6.6 The [facility] Comment on above: Performed By: #### 4 1000, 29373, 14779, 78976, 49791, 84415 ####[facility] [facility].[address] CBC W/DIFFon 06-20-2017 ABS BASOPHILS 0.0 10*3/uL Normal 0.0-0.2 The [facility] Comment on above: Performed By: #### 4 1000, 38463, 70717, 36952, 96168, 62448 ####[facility] [place] [address], [place] ABS IMM GRANS 0.0 10*3/uL Normal 0.0-0.2 The [facility] Comment on above: Performed By: #### 4 1000, 11214, 54444, 61760, 44005, 41302 ####[facility] [place] [address], [facility] ABS NEUTROPHILS 4.2 10*3/uL Normal 1.6-7.6 The [facility] Comment on above: Performed By: #### 4 1000, 24705, 00583, 71556, 31739, 92191 ####[facility] [place] [address], [facility] Basophils Auto #/vol (Bld) 0.2 % Normal 0.0-1.0 [facility] Comment on above: Performed By: #### 4 1000, 30599, 64937, 15459, 93971, 12375 ####[facility] [facility] [place] [address], [facility] Eosinophils Auto #/vol (Bld) 0.1 10*3/uL Normal 0.0-0.5 [facility] Comment on above: Performed By: #### 4 1000, 01922, 25715, 77833, 00908, 22242 ####[facility] [facility] [place] [address], [facility] Eosinophils/100 WBC Auto (Bld) 1.5 % Normal 0.0-6.0 [facility] Comment on above: Performed By: #### 4 1000, 99692, 87242, 48446, 50858, 59754 ####[facility] [facility].[address] Erythrocyte distribution width Auto Ratio (RBC) 13.4 % Normal 11.5-15.0 [facility] Comment on above: Performed By: #### 4 1000, 21612, 90031, 69498, 42728, 20104 ####[facility] Hematocrit Auto Volume Fraction (Bld) 44.9 % Normal 36.0-45.0 The [facility] Comment on above: Performed By: #### 4 1000, 28357, 08977, 27200, 81582, 85627 ####[address] Hemoglobin mass conc (Bld) 14.9 g/dL Normal 12.0-15.0 [facility] Comment on above: Performed By: #### 4 1000, 81361, 05879, 52001, 03960, 62275 ####[address] IMMATURE GRANS 0.2 % Normal 0.0-1.0 The [facility] Comment on above: Performed By: #### 4 1000, 37679, 81766, 83257, 64995, 30787 ####[address] Lymphocytes Auto #/vol (Bld) 1.1 10*3/uL Low 1.2-4.0 [facility] Comment on above: Performed By: #### 4 1000, 81987, 57614, 97067, 36767, 46110 ####[address] Lymphocytes/100 WBC Auto (Bld) 17.4 % Low 20.0-45.0 [facility] Comment on above: Performed By: #### 4 1000, 31621, 33840, 57341, 00801, 12147 ####[place] [address] [address] MCH Auto Entitic mass (RBC) 29.2 pg Normal 27.0-33.0 [facility] Comment on above: Performed By: #### 4 1000, 01512, 57082, 75639, 81849, 73318 ####[facility] MCHC Auto mass conc (RBC) 33.2 g/dL Normal 32.0-35.0 [facility] Comment on above: Performed By: #### 4 1000, 77370, 32310, 19532, 32015, 80027 ####[facility] MCV Auto Entitic volume (RBC) 87.9 fL Normal 82.0-98.0 [facility] Comment on above: Performed By: #### 4 1000, 28703, 91010, 07854, 38416, 30589 ####[facility] Monocytes Auto #/vol (Bld) 0.7 10*3/uL Normal 0.1-1.0 [facility] Comment on above: Performed By: #### 4 1000, 88094, 67009, 20887, 58624, 70371 ####[facility] [facility] MONOS 11.3 % Normal 5.0-12.0 [facility] Comment on above: Performed By: #### 4 1000, 29586, 83868, 21300, 26779, 17863 ####[facility] Neutrophils/100 WBC Auto (Bld) 69.4 % Normal 40.0-72.0 [facility] Comment on above: Performed By: #### 4 1000, 41907, 43354, 26544, 93921, 98777 ####[facility] Nucleated RBC/100 WBC Ratio (Bld) 0 % Normal 0-0 [facility] Comment on above: Performed By: #### 4 1000, 59368, 62622, 49864, 50968, 16287 ####[facility] [place] [address], [facility] PLAT CNT 198 10*3/uL Normal 150-400 The [facility] Comment on above: Performed By: #### 4 1000, 53684, 11033, 29626, 54214, 39155 ####[facility] RBC Auto #/vol (Bld) 5.11 10*6/uL High 3.80-5.00 [facility] Comment on above: Performed By: #### 4 1000, 27973, 14529, 49915, 30115, 88092 ####[facility] WBC Auto #/vol (Bld) 6.0 10*3/uL Normal 4.0-10.6 [facility] Comment on above: Performed By: #### 4 1000, 33733, 54708, 78547, 75185, 71642 ####[facility] COMP METABOLIC PANELon 06-20 Albumin mass conc 4.4 g/dL Normal 3.5-5.7 The [facility] Comment on above: Performed By: #### 4 1000, 16949, 08187, 97669, 71179, 54470 ####[facility] ALKALINE PHOSPH 133 IU/L High 34-104 The [facility] Comment on above: Performed By: #### 4 1000, 26371, 18747, 06023, 97737, 58929 ####[facility] ALT enzyme act/vol 16 U/L Normal 7-52 The [facility] Comment on above: Performed By: #### 4 1000, 09733, 22106, 20361, 68153, 47899 ####[facility] [place] [address], [facility] AST enzyme act/vol 21 U/L Normal 13-39 The [facility] Comment on above: Performed By: #### 4 1000, 96460, 57115, 11600, 17039, 73615 ####[facility] [place] [address], [facility] Bilirubin mass conc 0.8 mg/dL Normal 0.3-1.0 The [facility] Comment on above: Performed By: #### 4 1000, 63666, 72761, 31096, 23355, 54635 ####[facility] [facility] [place] [address], [facility] Calcium mass conc 10.0 mg/dL Normal 8.6-10.3 The [facility] Comment on above: Performed By: #### 4 1000, 71817, 92243, 27660, 18663, 20465 ####[facility] [place] [address], [facility] Chloride molar conc 106 mmol/L Normal 98-107 The [facility] Comment on above: Performed By: #### 4 1000, 65665, 82844, 25756, 55608, 61552 ####[facility] [place] [address], [facility] CO2 molar conc 27 mmol/L Normal 21-31 The [facility] Comment on above: Performed By: #### 4 1000, 30317, 22314, 23575, 18092, 10980 ####[facility] [place] [address], [facility] Creatinine mass conc 0.74 mg/dL Normal 0.60-1.20 [facility] Comment on above: Performed By: #### 4 1000, 49504, 22217, 49006, 32301, 54854 ####[facility] [place] [address], [place] GFR/1.73 sq M predicted among blacks MDRD vol rate/area (S/P/Bld) mL/min/{1.73_m2} Normal >60 The [facility] Comment on above: Performed By: #### 4 1000, 07482, 90432, 82816, 64180, 88803 ####[facility] [place] [address], [place] GFR/1.73 sq M predicted among non-blacks MDRD vol rate/area (S/P/Bld) mL/min/{1.73_m2} Normal >60 The [facility] Comment on above: Performed By: #### 4 1000, 72115, 55764, 20447, 61006, 49151 ####[facility] [place] [address], [place] Glucose mass conc 95 mg/dL Normal 70-100 The [facility] Comment on above: Performed By: #### 4 1000, 75650, 49472, 07762, 63458, 99491 ####[facility] [place] [address], [place] Potassium molar conc 3.8 mmol/L Normal 3.5-5.1 [facility] Comment on above: Performed By: #### 4 1000, 37044, 88566, 60834, 16663, 97694 ####[facility] [place] [address], [place] Protein mass conc 7.3 g/dL Normal 6.0-8.3 The [facility] Comment on above: Performed By: #### 4 1000, 91680, 27912, 84787, 30072, 22920 ####[facility] [place] [address], [place] Sodium molar conc 137 mmol/L Normal 136-145 The [facility] Comment on above: Performed By: #### 4 1000, 31576, 97672, 03153, 81344, 38048 ####[facility] Urea nitrogen mass conc 16 mg/dL Normal 7-25 [facility] Comment on above: Performed By: #### 4 1000, 61734, 92021, 93884, 50010, 30287 ####[facility] DIRECT BILIon 06-20-2017 Bilirubin.direct mass conc 0.1 mg/dL Normal 0.0-0.2 [facility] Comment on above: Performed By: #### 4 1000, 49609, 68095, 20995, 27899, 75942 ####[facility] [facility].[address] EVEROLIMUS 95258do 8 EVEROLIMUS 6.7 ng/mL Normal [facility] Comment on above: Result Comment: Ther apeutic [...] the transplantcenter.Test developed and characteristics determined by [facility]. See Compliance Statement B: [facility]CT[facility]/CSPerformed by [facility],[address] [place] [address] rgm.[facility], Leonid Antonio MD - Lab. Director LIPID PROFILEon 06-20-2017 Cholesterol in HDL mass conc 45 mg/dL Normal 23-92 [facility] Comment on above: Result Comment: Slig ht variation in normal range could be due to gender and/or age.HDL CHOLESTEROL REFERENCE RANGE:20 years and older Cardiovascular Risk> or =60 mg/dL Yslgyrveq67 TO 59 mg/dL Low Risk<40 mg/dL High Risk Performed By: #### 4 1000, 48332, 94296, 01065, 80737, 88323 ####[facility] [place] [address], [facility] Cholesterol in LDL mass conc 58 mg/dL Normal 0-130 [facility] Comment on above: Result Comment: LDL IS A CALCULATIONLDL IS ONLY VALID IF THE TRIG IS LESS THAN 400. Performed By: #### 4 1000, 33925, 03486, 64806, 55055, 32740 ####[facility] [place] [address], [facility] Cholesterol mass conc 126 mg/dL Normal 120-200 [facility] Comment on above: Result Comment: CHOL ESTEROL REFERENCE RANGE:20 YEARS AND OLDER CARDIOVASCULAR RISKLess than 200 mg/dl Low Wnzk002 to 239 mg/dl Borderline Vxxe448 mg/dl and greater High Risk Performed By: #### 4 1000, 80201, 44818, 54288, 11015, 37510 ####[facility] [place] [address], [facility] Cholesterol.total/Cho lesterol in HDL mass ratio 2.8 {ratio} Normal .0-4.5 [facility] Comment on above: Performed By: #### 4 1000, 24463, 91501, 71292, 71450, 81970 ####[facility] NON-HDL CHOLESTEROL 81 mg/dL Normal The [facility] Comment on above: Performed By: #### 4 1000, 46887, 55009, 24012, 53523, 61000 ####[place] [address] [facility].[address] Triglyceride mass conc 113 mg/dL Normal 40-149 [facility] Comment on above: Result Comment: TRIG LYCERIDE REFERENCE RANGE:20 YEARS AND OLDER CARDIOVASCULAR RISKLESS THAN 150 mg/dl LOW [id number] TO 199 mg/dl BORDERLINE TNKX263 mg/dl AND GREATER HIGH RISK Performed By: #### 4 1000, 33678, 05000, 16542, 77693, 06806 ####[place] [address] [facility].[address] VLDL CHOL 23 mg/dL Normal 0-40 [facility] Comment on above: Performed By: #### 4 1000, 18239, 84212, 70399, 23199, 79945 ####[facility] [facility].[address] MAGNESIUM BLOODon 06-20-2017 Magnesium mass conc 1.9 mg/dL Normal 1.9-2.7 The [facility] Comment on above: Performed By: #### 4 1000, 39438, 53839, 30018, 86215, 32372 ####[facility] [facility].[address] PHOSPHORUS BLOODon 8 Phosphate mass conc 3.1 mg/dL Normal 2.5-5.0 The [facility] Comment on above: Performed By: #### 4 1000, 74775, 40462, 28622, 51224, 27420 ####[facility] [facility] [place] [address], [facility] TACROLIMUSon 06-20-2017 Tacrolimus mass conc (Bld) 4.2 ng/mL Low 5.0-20.0 [facility] Comment on above: Result Comment: The [facility] Tacrolimus assay is a delayed one-step immunoassayfor the quantitative determination of tacrolimus in human whole bloodusing the chemiluminescent microparticle immunoassay (CMIA) technologywith flexible assay protocols, referred to as Chemiflex. Performed By: #### 4 1000, 96915, 80136, 20044, 48670, 47954 ####[facility] [facility].[address] URIC ACID BLOODon 06-20-2017 Urate mass conc 4.3 mg/dL Normal 2.3-6.6 The [facility] Comment on above: Performed By: #### 4 1000, 61272, 21426, 05313, 96261, 42200 ####[facility] [facility].[address] BK VIRUS QUANTITATION PCR BL OODon 05-27-2017 BKV QUANT PCR Not detected Normal The [facility] Comment on above: Result Comment: Meth od: BK virus was measured by quantitative polymerase chain reactionusing a TaqMan probe targeting the polyomavirus BK APICULTURIST-1 gene.The lower limit of quantitation of the assay is 500 copies of BK genomeper milliliter of plasma or urine, and any detectable BK DNA below thatlevel is reported as: Detected, <500 copies/ml. Serial BK virusmeasurement can be used to monitor disease activity. (Reference:Kelsie vaughanl. J CLIN MICRO 2004; 42:3028-4865).This test was developed and its performance characteristics determinedby the [facility] Molecular Diagnostics Laboratory. It has not been approvedby the US Food and Drug Administration. However, such approval is notrequired for clinical implementation, and test results have been shownto be clinically useful. This laboratory is CAP accredited and CLIAcertified to perform high complexity testing. Performed By: #### 4 1000, 14471, 24230, 49527, 18883, 09652 ####[facility] [facility].[address] LOG 10 COPIES Not detected Normal The [facility] Comment on above: Performed By: #### 4 1000, 34836, 09219, 05150, 33402, 68663 ####[facility] [facility].[address] CBC W/DIFFon 05-27-2017 ABS BASOPHILS 0.0 10*3/uL Normal 0.0-0.2 The [facility] Comment on above: Performed By: #### 4 1000, 50532, 13774, 04995, 86729, 90840 ####[facility] [facility].[address] ABS IMM GRANS 0.0 10*3/uL Normal 0.0-0.2 The [facility] Comment on above: Performed By: #### 4 1000, 60185, 33403, 33352, 63531, 51900 ####[facility] ABS NEUTROPHILS 4.8 10*3/uL Normal 1.6-7.6 The [facility] Comment on above: Performed By: #### 4 1000, 69643, 44507, 47484, 65437, 32550 ####[facility] Basophils Auto #/vol (Bld) 0.0 % Normal 0.0-1.0 [facility] Comment on above: Performed By: #### 4 1000, 95169, 51632, 33562, 72131, 46642 ####[facility] [facility].[address] Eosinophils Auto #/vol (Bld) 0.1 10*3/uL Normal 0.0-0.5 [facility] Comment on above: Performed By: #### 4 1000, 96387, 67756, 97032, 60627, 36987 ####[facility] Eosinophils/100 WBC Auto (Bld) 1.1 % Normal 0.0-6.0 [facility] Comment on above: Performed By: #### 4 1000, 11035, 76871, 17694, 33630, 78421 ####[facility] Erythrocyte distribution width Auto Ratio (RBC) 13.5 % Normal 11.5-15.0 [facility] Comment on above: Performed By: #### 4 1000, 81674, 98284, 67105, 83909, 83773 ####[facility] Hematocrit Auto Volume Fraction (Bld) 46.1 % High 36.0-45.0 The [facility] Comment on above: Performed By: #### 4 1000, 55708, 63052, 42992, 96752, 65374 ####[facility] Hemoglobin mass conc (Bld) 15.0 g/dL Normal 12.0-15.0 [facility] Comment on above: Performed By: #### 4 1000, 65886, 84750, 15441, 65118, 28821 ####[facility] IMMATURE GRANS 0.3 % Normal 0.0-1.0 The [facility] Comment on above: Performed By: #### 4 1000, 86217, 50726, 49515, 74222, 30773 ####[facility] Lymphocytes Auto #/vol (Bld) 1.0 10*3/uL Low 1.2-4.0 [facility] Comment on above: Performed By: #### 4 1000, 34316, 22143, 04969, 77110, 17065 ####[facility] Lymphocytes/100 WBC Auto (Bld) 15.7 % Low 20.0-45.0 [facility] Comment on above: Performed By: #### 4 1000, 24923, 31796, 18614, 01034, 43535 ####[facility] MCH Auto Entitic mass (RBC) 28.8 pg Normal 27.0-33.0 [facility] Comment on above: Performed By: #### 4 1000, 57635, 82098, 90684, 51171, 58657 ####[facility] [facility].[address] MCHC Auto mass conc (RBC) 32.5 g/dL Normal 32.0-35.0 [facility] Comment on above: Performed By: #### 4 1000, 20501, 95442, 57486, 36562, 43434 ####[facility] MCV Auto Entitic volume (RBC) 88.7 fL Normal 82.0-98.0 [facility] Comment on above: Performed By: #### 4 1000, 79046, 49447, 59724, 31233, 64038 ####[facility]3000 [facility].[address] Monocytes Auto #/vol (Bld) 0.8 10*3/uL Normal 0.1-1.0 [facility] Comment on above: Performed By: #### 4 1000, 54333, 00233, 72299, 55499, 74735 ####[facility] [facility].[address] MONOS 11.4 % Normal 5.0-12.0 [facility] Comment on above: Performed By: #### 4 1000, 51831, 31315, 43602, 60195, 73789 ####[facility] Neutrophils/100 WBC Auto (Bld) 71.5 % Normal 40.0-72.0 [facility] Comment on above: Performed By: #### 4 1000, 14360, 45452, 09796, 46113, 86939 ####[place] [address] [facility].[address] Nucleated RBC/100 WBC Ratio (Bld) 0 % Normal 0-0 [facility] Comment on above: Performed By: #### 4 1000, 86430, 87437, 41536, 83151, 01480 ####[place] [address] [facility].[address] PLAT CNT 199 10*3/uL Normal 150-400 The [facility] Comment on above: Performed By: #### 4 1000, 77013, 75726, 70789, 72340, 60998 ####[place] [address] [facility].[address] RBC Auto #/vol (Bld) 5.20 10*6/uL High 3.80-5.00 [facility] Comment on above: Performed By: #### 4 1000, 20003, 21028, 96423, 97664, 11224 ####[place] [address] [facility].[address] WBC Auto #/vol (Bld) 6.6 10*3/uL Normal 4.0-10.6 [facility] Comment on above: Performed By: #### 4 1000, 35413, 31388, 12518, 92006, 93937 ####[place] [address] [facility].[address] COMP METABOLIC PANELon 05-27 Albumin mass conc 4.6 g/dL Normal 3.5-5.7 The [facility] Comment on above: Performed By: #### 4 1000, 02035, 26262, 84189, 11951, 82471 ####[facility] [place] [address], [facility] ALKALINE PHOSPH 105 IU/L High 34-104 The [facility] Comment on above: Performed By: #### 4 1000, 28957, 44912, 88997, 18937, 24025 ####[facility] [place] [address], [facility] ALT enzyme act/vol 20 U/L Normal 7-52 The [facility] Comment on above: Performed By: #### 4 1000, 58676, 07796, 16595, 37894, 99119 ####[facility] [facility] [place] [address], [facility] AST enzyme act/vol 23 U/L Normal 13-39 The [facility] Comment on above: Performed By: #### 4 1000, 08483, 30711, 18149, 39077, 42788 ####[facility] [place] [address], [facility] Bilirubin mass conc 0.6 mg/dL Normal 0.3-1.0 The [facility] Comment on above: Performed By: #### 4 1000, 72094, 25221, 66966, 24349, 45744 ####[facility] [place] [address], [facility] Calcium mass conc 9.8 mg/dL Normal 8.6-10.3 The [facility] Comment on above: Performed By: #### 4 1000, 32882, 39540, 76320, 55445, 07189 ####[facility] [place] [address], [facility] Chloride molar conc 106 mmol/L Normal 98-107 The [facility] Comment on above: Performed By: #### 4 1000, 42759, 24320, 77111, 75955, 63274 ####[facility] [place] [address], [place] CO2 molar conc 30 mmol/L Normal 21-31 [facility] Comment on above: Performed By: #### 4 1000, 94613, 62641, 11731, 60324, 93054 ####[facility] [place] [address], [facility] Creatinine mass conc 0.80 mg/dL Normal 0.60-1.20 [facility] Comment on above: Performed By: #### 4 1000, 24528, 00895, 79687, 18632, 77149 ####[facility] [place] [address], [facility] GFR/1.73 sq M predicted among blacks MDRD vol rate/area (S/P/Bld) mL/min/{1.73_m2} Normal >60 The [facility] Comment on above: Performed By: #### 4 1000, 27314, 66650, 22554, 30564, 93685 ####[facility] [place] [address], [facility] GFR/1.73 sq M predicted among non-blacks MDRD vol rate/area (S/P/Bld) mL/min/{1.73_m2} Normal >60 The [facility] Comment on above: Performed By: #### 4 1000, 93879, 93376, 82584, 08262, 32220 ####[facility] [place] [address], [place] Glucose mass conc 90 mg/dL Normal 70-100 The [facility] Comment on above: Performed By: #### 4 1000, 08372, 53512, 76699, 50900, 40905 ####[facility] [place] [address], [place] Potassium molar conc 4.0 mmol/L Normal 3.5-5.1 [facility] Comment on above: Performed By: #### 4 1000, 76357, 21008, 82113, 82243, 72366 ####[facility] Protein mass conc 6.8 g/dL Normal 6.0-8.3 The [facility] Comment on above: Performed By: #### 4 1000, 05053, 09212, 93238, 25287, 75117 ####[facility] Sodium molar conc 138 mmol/L Normal 136-145 The [facility] Comment on above: Performed By: #### 4 1000, 86713, 97818, 46041, 45896, 16592 ####[facility] Urea nitrogen mass conc 14 mg/dL Normal 7-25 The [facility] Comment on above: Performed By: #### 4 1000, 73938, 02180, 81741, 72817, 84551 ####[facility] DIRECT BILIon 05-27-2017 Bilirubin.direct mass conc 0.1 mg/dL Normal 0.0-0.2 The [facility] Comment on above: Performed By: #### 4 1000, 05140, 63359, 84775, 99846, 06433 ####[facility] EVEROLIMUS [id number] 8 EVEROLIMUS 5.6 ng/mL Normal The [facility] Comment on above: Result Comment: Ther apeutic [...] the transplantcenter.Test developed and characteristics determined by [employer]. See Compliance Statement B: NCTech/CSPerformed by [facility],[address] [place] [id number] ynj.[employer], Leonid Antonio MD - Lab. Director HEMOGLOBIN A1Con 05-27-2017 Glucose mass conc 108 mg/dL Normal 70-126 The [facility] Comment on above: Performed By: #### 4 1000, 65442, 23065, 31281, 74426, 95876 ####[facility] [place] [address], [facility] Hemoglobin A1c/Hemoglobin.total mass fraction (Bld) 5.4 % Normal 4.0-6.0 The [facility] Comment on above: Performed By: #### 4 1000, 38115, 69679, 30495, 24366, 18598 ####[facility] [place] [address], [facility] LIPID PROFILEon 05-27-2017 Cholesterol in HDL mass conc 39 mg/dL Normal 23-92 The [facility] Comment on above: Result Comment: Slig ht variation in normal range could be due to gender and/or age.HDL CHOLESTEROL REFERENCE RANGE:20 years and older Cardiovascular Risk> or =60 mg/dL Vymwfwupu64 TO 59 mg/dL Low Risk<40 mg/dL High Risk Performed By: #### 4 1000, 12246, 61566, 22308, 55212, 07547 ####[facility] [facility] [place] [address], [facility] Cholesterol in LDL mass conc 52 mg/dL Normal 0-130 [facility] Comment on above: Result Comment: LDL IS A CALCULATIONLDL IS ONLY VALID IF THE TRIG IS LESS THAN 400. Performed By: #### 4 1000, 88570, 15705, 76409, 61680, 62599 ####[facility] [place] [address], [facility] Cholesterol mass conc 117 mg/dL Low 120-200 The [facility] Comment on above: Result Comment: CHOL ESTEROL REFERENCE RANGE:20 YEARS AND OLDER CARDIOVASCULAR RISKLess than 200 mg/dl Low Uacc321 to 239 mg/dl Borderline Criz507 mg/dl and greater High Risk Performed By: #### 4 1000, 02132, 70011, 33885, 08315, 11119 ####[facility] [place] [address], [facility] Cholesterol.total/Cho lesterol in HDL mass ratio 3.0 {ratio} Normal .0-4.5 The [facility] Comment on above: Performed By: #### 4 1000, 24909, 43095, 59631, 53591, 58414 ####[facility] [place] [address], [facility] NON-HDL CHOLESTEROL 78 mg/dL Normal The [facility] Comment on above: Performed By: #### 4 1000, 32670, 40222, 46688, 42428, 72445 ####[facility] [facility] [place] [address], [facility] Triglyceride mass conc 131 mg/dL Normal 40-149 The [facility] Comment on above: Result Comment: TRIG LYCERIDE REFERENCE RANGE:20 YEARS AND OLDER CARDIOVASCULAR RISKLESS THAN 150 mg/dl LOW [id number] TO 199 mg/dl BORDERLINE UGWG438 mg/dl AND GREATER HIGH RISK Performed By: #### 4 1000, 21876, 55473, 60353, 78054, 80809 ####[facility] VLDL CHOL 26 mg/dL Normal 0-40 The [facility] Comment on above: Performed By: #### 4 1000, 18505, 87464, 66357, 17606, 08904 ####[facility] [facility] MAGNESIUM BLOODon 05-27-2017 Magnesium mass conc 2.1 mg/dL Normal 1.9-2.7 The [facility] Comment on above: Performed By: #### 4 1000, 05072, 31453, 19101, 48003, 26653 ####[facility] [facility].[address] PHOSPHORUS BLOODon 8 Phosphate mass conc 3.5 mg/dL Normal 2.5-5.0 [facility] Comment on above: Performed By: #### 4 1000, 68941, 09220, 42308, 96772, 52146 ####[facility] [facility].[address] TACROLIMUSon 05-27-2017 Tacrolimus mass conc (Bld) 4.4 ng/mL Low 5.0-20.0 The [facility] Comment on above: Result Comment: The [facility] [employer] Tacrolimus assay is a delayed one-step immunoassayfor the quantitative determination of tacrolimus in human whole bloodusing the chemiluminescent microparticle immunoassay (CMIA) technologywith flexible assay protocols, referred to as Chemiflex. Performed By: #### 4 1000, 04579, 97692, 66945, 31068, 94206 ####[facility] [place] [address], [facility] URIC ACID BLOODon 05-27-2017 Urate mass conc 4.6 mg/dL Normal 2.3-6.6 [facility] Comment on above: Performed By: #### 4 1000, 55673, 55141, 37266, 28080, 31407 ####[facility] [facility].[address] CBC W/DIFFon 04-29-2017 ABS BASOPHILS 0.0 10*3/uL Normal 0.0-0.2 The [facility] Comment on above: Performed By: #### 4 1000, 31686, 11366, 41185, 94003, 64679 ####[facility] [facility].[address] ABS IMM GRANS 0.0 10*3/uL Normal 0.0-0.2 The [facility] Comment on above: Performed By: #### 4 1000, 00776, 14451, 16755, 76557, 67254 ####[facility] ABS NEUTROPHILS 4.6 10*3/uL Normal 1.6-7.6 The [facility] Comment on above: Performed By: #### 4 1000, 49116, 42506, 30359, 83666, 63445 ####[facility] Basophils Auto #/vol (Bld) 0.3 % Normal 0.0-1.0 The [facility] Comment on above: Performed By: #### 4 1000, 58334, 83829, 67037, 00840, 49881 ####[facility] [facility].[address] Eosinophils Auto #/vol (Bld) 0.1 10*3/uL Normal 0.0-0.5 The [facility] Comment on above: Performed By: #### 4 1000, 76184, 55436, 61820, 90037, 48823 ####[facility] Eosinophils/100 WBC Auto (Bld) 1.7 % Normal 0.0-6.0 The [facility] Comment on above: Performed By: #### 4 1000, 38153, 73869, 53784, 19383, 61574 ####[facility] [facility].[address] Erythrocyte distribution width Auto Ratio (RBC) 13.7 % Normal 11.5-15.0 The [facility] Comment on above: Performed By: #### 4 1000, 16659, 33609, 62462, 80743, 01256 ####[facility] [facility].[address] Hematocrit Auto Volume Fraction (Bld) 45.0 % Normal 36.0-45.0 The [facility] Comment on above: Performed By: #### 4 1000, 38666, 48060, 58193, 92479, 25712 ####[facility] [facility].[address] Hemoglobin mass conc (Bld) 14.9 g/dL Normal 12.0-15.0 The [facility] Comment on above: Performed By: #### 4 1000, 00455, 52283, 79313, 37114, 13868 ####[facility] [facility].[address] IMMATURE GRANS 0.3 % Normal 0.0-1.0 The [facility] Comment on above: Performed By: #### 4 1000, 73134, 52279, 51642, 86789, 91125 ####[facility] [facility].[address] Lymphocytes Auto #/vol (Bld) 0.9 10*3/uL Low 1.2-4.0 The [facility] Comment on above: Performed By: #### 4 1000, 24152, 10097, 49307, 08584, 26186 ####[facility] [facility].[address] Lymphocytes/100 WBC Auto (Bld) 14.2 % Low 20.0-45.0 The [facility] Comment on above: Performed By: #### 4 1000, 12082, 39754, 91817, 15303, 60101 ####[facility] MCH Auto Entitic mass (RBC) 29.4 pg Normal 27.0-33.0 The [facility] Comment on above: Performed By: #### 4 1000, 90794, 14564, 51952, 42295, 66381 ####[facility] MCHC Auto mass conc (RBC) 33.1 g/dL Normal 32.0-35.0 The [facility] Comment on above: Performed By: #### 4 1000, 06907, 63566, 08481, 64275, 92955 ####[facility] MCV Auto Entitic volume (RBC) 88.8 fL Normal 82.0-98.0 The [facility] Comment on above: Performed By: #### 4 1000, 07888, 88161, 05187, 09168, 83412 ####[facility] Monocytes Auto #/vol (Bld) 0.8 10*3/uL Normal 0.1-1.0 The [facility] Comment on above: Performed By: #### 4 1000, 00299, 17640, 71386, 96518, 88638 ####[facility] MONOS 12.2 % High 5.0-12.0 The [facility] Comment on above: Performed By: #### 4 1000, 11662, 08270, 11493, 35589, 39110 ####[facility] Neutrophils/100 WBC Auto (Bld) 71.3 % Normal 40.0-72.0 The [facility] Comment on above: Performed By: #### 4 1000, 86390, 83054, 02556, 03662, 45031 ####[facility] Nucleated RBC/100 WBC Ratio (Bld) 0 % Normal 0-0 The [facility] Comment on above: Performed By: #### 4 1000, 44767, 11718, 30165, 34520, 80380 ####[facility] PLAT CNT 215 10*3/uL Normal 150-400 The [facility] Comment on above: Performed By: #### 4 1000, 18407, 29957, 53461, 92727, 85282 ####[facility] RBC Auto #/vol (Bld) 5.07 10*6/uL High 3.80-5.00 Th e [facility] Comment on above: Performed By: #### 4 1000, 34200, 13605, 90858, 83285, 06386 ####[facility] WBC Auto #/vol (Bld) 6.5 10*3/uL Normal 4.0-10.6 The [facility] Comment on above: Performed By: #### 4 1000, 64363, 67357, 13510, 90415, 23522 ####[facility] COMP METABOLIC PANELon 04-29 Albumin mass conc 4.4 g/dL Normal 3.5-5.7 The [facility] Comment on above: Performed By: #### 4 1000, 58420, 84882, 30763, 41801, 37748 ####[facility] [place] [address], [facility] ALKALINE PHOSPH 114 IU/L High 34-104 The [facility] Comment on above: Performed By: #### 4 1000, 69995, 89680, 59229, 60126, 76282 ####[facility] [place] [address], [place] ALT enzyme act/vol 15 U/L Normal 7-52 The [facility] Comment on above: Performed By: #### 4 1000, 31182, 10162, 98565, 21845, 61034 ####[facility] [place] [address], [facility] AST enzyme act/vol 19 U/L Normal 13-39 The [facility] Comment on above: Performed By: #### 4 1000, 64017, 80605, 17729, 85849, 89705 ####[facility] [place] [address], [facility] Bilirubin mass conc 0.7 mg/dL Normal 0.3-1.0 The [facility] Comment on above: Performed By: #### 4 1000, 86686, 78398, 58247, 32329, 33481 ####[facility] [place] [address], [facility] Calcium mass conc 9.6 mg/dL Normal 8.6-10.3 The [facility] Comment on above: Performed By: #### 4 1000, 71153, 97787, 05036, 06619, 65482 ####[facility] [place] [address], [place] Chloride molar conc 103 mmol/L Normal 98-107 The [facility] Comment on above: Performed By: #### 4 1000, 97605, 52759, 83331, 36098, 03343 ####[facility] [place] [address], [facility] CO2 molar conc 29 mmol/L Normal 21-31 The [facility] Comment on above: Performed By: #### 4 1000, 81228, 80674, 06741, 03756, 21900 ####[facility] [place] [address], [facility] Creatinine mass conc 0.79 mg/dL Normal 0.60-1.20 The [facility] Comment on above: Performed By: #### 4 1000, 06718, 18237, 25328, 21935, 17007 ####[facility] [place] [address], [facility] GFR/1.73 sq M predicted among blacks MDRD vol rate/area (S/P/Bld) mL/min/{1.73_m2} Normal >60 The [facility] Comment on above: Performed By: #### 4 1000, 30894, 53283, 89761, 19783, 79095 ####[facility] [place] [address], [facility] GFR/1.73 sq M predicted among non-blacks MDRD vol rate/area (S/P/Bld) mL/min/{1.73_m2} Normal >60 The [facility] Comment on above: Performed By: #### 4 1000, 42327, 38791, 70417, 53347, 60150 ####[facility] [place] [address], [facility] Glucose mass conc 90 mg/dL Normal 70-100 The [facility] Comment on above: Performed By: #### 4 1000, 04549, 31723, 88944, 17350, 63040 ####[facility] [place] [address], [place] Potassium molar conc 3.8 mmol/L Normal 3.5-5.1 [facility] Comment on above: Performed By: #### 4 1000, 14319, 87405, 37189, 37583, 04052 ####[facility] [place] [address], [facility] Protein mass conc 7.2 g/dL Normal 6.0-8.3 The [facility] Comment on above: Performed By: #### 4 1000, 47455, 65608, 51205, 74832, 83070 ####[facility] [place] [address], [facility] Sodium molar conc 140 mmol/L Normal 136-145 The [facility] Comment on above: Performed By: #### 4 1000, 80123, 62570, 13180, 08407, 01515 ####[facility] Urea nitrogen mass conc 15 mg/dL Normal 7-25 The [facility] Comment on above: Performed By: #### 4 1000, 41882, 32327, 72304, 79091, 45703 ####[facility] DIRECT BILIon 04-29-2017 Bilirubin.direct mass conc 0.1 mg/dL Normal 0.0-0.2 The [facility] Comment on above: Order Comment: Liver Battery conflicts with Comprehensive Metabolic Panel. Liver Battery canceled and Direct Bilirubin added. Performed By: #### 4 1000, 45631, 30752, 37124, 72794, 34769 ####[facility] [place] [address], [facility] EVEROLIMUS [id number] 8 EVEROLIMUS 5.4 ng/mL Normal The [facility] Comment on above: Result Comment: Ther apeutic [...] the transplantcenter.Test developed and characteristics determined by [employer]. See Compliance Statement B: NCTech/CSPerformed by [facility],[address] [place] [address] bll.[employer], Leonid Antonio MD - Lab. Director LIPID PROFILEon 04-29-2017 Cholesterol in HDL mass conc 49 mg/dL Normal 23-92 The [facility] Comment on above: Result Comment: Slig ht variation in normal range could be due to gender and/or age.HDL CHOLESTEROL REFERENCE RANGE:20 years and older Cardiovascular Risk> or =60 mg/dL Noiczwsbp57 TO 59 mg/dL Low Risk<40 mg/dL High Risk Performed By: #### 4 1000, 62838, 34000, 28547, 09360, 56226 ####[facility] [facility].[address] Cholesterol in LDL mass conc 52 mg/dL Normal 0-130 The [facility] Comment on above: Result Comment: LDL IS A CALCULATIONLDL IS ONLY VALID IF THE TRIG IS LESS THAN 400. Performed By: #### 4 1000, 38666, 05944, 73114, 43347, 04528 ####[facility] [place] [address], [facility] Cholesterol mass conc 122 mg/dL Normal 120-200 The [facility] Comment on above: Result Comment: CHOL ESTEROL REFERENCE RANGE:20 YEARS AND OLDER CARDIOVASCULAR RISKLess than 200 mg/dl Low Etqi571 to 239 mg/dl Borderline Zdfg164 mg/dl and greater High Risk Performed By: #### 4 1000, 06259, 02138, 70604, 19926, 61843 ####[facility].[address] Cholesterol.total/Cho lesterol in HDL mass ratio 2.5 {ratio} Normal .0-4.5 [facility] Comment on above: Performed By: #### 4 1000, 98670, 75595, 31098, 86081, 63291 ####[facility].[address] NON-HDL CHOLESTEROL 73 mg/dL Normal The [facility] Comment on above: Performed By: #### 4 1000, 38233, 66749, 05956, 17738, 52547 ####[facility].[address] Triglyceride mass conc 106 mg/dL Normal 40-149 The [facility] Comment on above: Result Comment: TRIG LYCERIDE REFERENCE RANGE:20 YEARS AND OLDER CARDIOVASCULAR RISKLESS THAN 150 mg/dl LOW [id number] TO 199 mg/dl BORDERLINE UDOP528 mg/dl AND GREATER HIGH RISK Performed By: #### 4 1000, 27556, 41267, 86756, 88614, 62146 ####[facility].[address] VLDL CHOL 21 mg/dL Normal 0-40 The [facility] Comment on above: Performed By: #### 4 1000, 43319, 03566, 13042, 37717, 93682 ####[facility].[address] MAGNESIUM BLOODon 04-29-2017 Magnesium mass conc 2.1 mg/dL Normal 1.9-2.7 The [facility] Comment on above: Performed By: #### 4 1000, 07793, 31577, 10924, 50517, 12863 ####[facility].[address] PHOSPHORUS BLOODon 8 Phosphate mass conc 3.3 mg/dL Normal 2.5-5.0 [facility] Comment on above: Performed By: #### 4 1000, 93573, 99618, 97813, 06629, 12935 ####[facility] TACROLIMUSon 04-29-2017 Tacrolimus mass conc (Bld) 4.6 ng/mL Low 5.0-20.0 The [facility] Comment on above: Result Comment: The [facility] [employer] [employer] Tacrolimus assay is a delayed one-step immunoassayfor the quantitative determination of tacrolimus in human whole bloodusing the chemiluminescent microparticle immunoassay (CMIA) technologywith flexible assay protocols, referred to as Chemiflex. Performed By: #### 4 1000, 72569, 33890, 26974, 14311, 72365 ####[facility] URIC ACID BLOODon 04-29-2017 Urate mass conc 4.6 mg/dL Normal 2.3-6.6 The [facility] Comment on above: Performed By: #### 4 1000, 13177, 73598, 27950, 41321, 14216 ####[place] [address] [address] CBC W/DIFFon 03-27-2017 Basophils Auto #/vol (Bld) 0.2 % Normal 0.0-2.0 The [facility] Comment on above: Performed By: #### 4 1000, 28693, 15293, 65864, 21568, 17650 ####[facility] Eosinophils/100 WBC Auto (Bld) 1.8 % Normal 0.0-5.0 The [facility] Comment on above: Performed By: #### 4 1000, 45940, 11711, 30000, 20742, 44076 ####[facility] Erythrocyte distribution width Auto Ratio (RBC) 13.6 % Normal 11.5-16.9 The [facility] Comment on above: Performed By: #### 4 1000, 38528, 59608, 08895, 19159, 47688 ####[facility] Hematocrit Auto Volume Fraction (Bld) 47.6 % Normal 36.0-48.0 The [facility] Comment on above: Performed By: #### 4 1000, 36933, 65368, 92910, 59845, 62864 ####[facility] Hemoglobin mass conc (Bld) 15.8 g/dL High 12.0-15.0 The [facility] Comment on above: Performed By: #### 4 1000, 54972, 24734, 69672, 15488, 61635 ####[facility] Lymphocytes/100 WBC Auto (Bld) 14.5 % Low 20.0-40.0 The [facility] Comment on above: Performed By: #### 4 1000, 88666, 02918, 78432, 19849, 84904 ####[facility] MCH Auto Entitic mass (RBC) 29.0 pg Normal 24.0-32.0 [facility] Comment on above: Performed By: #### 4 1000, 44886, 10247, 84213, 86336, 91411 ####[facility] MCHC Auto mass conc (RBC) 33.3 g/dL Normal 32.0-36.0 [facility] Comment on above: Performed By: #### 4 1000, 74239, 75821, 92133, 84076, 81724 ####[facility] MCV Auto Entitic volume (RBC) 87.4 fL Normal 80.0-100.0 [facility] Comment on above: Performed By: #### 4 1000, 12808, 05299, 99604, 23108, 46002 ####[facility] METHOD Normal RBC Morphology Normal [facility] Comment on above: Performed By: #### 4 1000, 02348, 30961, 26713, 41641, 32377 ####[facility] [address] MONOS 9.6 % High 2-8 [facility] Comment on above: Performed By: #### 4 1000, 81336, 54761, 85186, 45742, 62587 ####[facility] Neutrophils/100 WBC Auto (Bld) 73.9 % High 50-70 [facility] Comment on above: Performed By: #### 4 1000, 90640, 82651, 09115, 97694, 34799 ####[facility] PLAT CNT 228 Thou/mm3 Normal 100-400 The [facility] Comment on above: Performed By: #### 4 1000, 35447, 92661, 00759, 66251, 76265 ####[facility] RBC Auto #/vol (Bld) 5.45 mill/mm3 Normal 3.50-5.50 [facility] Comment on above: Performed By: #### 4 1000, 37872, 15187, 11041, 14654, 79692 ####[facility] [place] [address], [facility] WBC Auto #/vol (Bld) 6.5 Thou/mm3 Normal 4.0-10.0 Th e [facility] Comment on above: Performed By: #### 4 1000, 07978, 86529, 38241, 13324, 82105 ####[facility] COMP METABOLIC PANELon 03-27 Albumin mass conc 4.7 g/dL Normal 3.5-5.7 The [facility] Comment on above: Performed By: #### 4 1000, 55898, 45902, 45863, 06616, 98800 ####[facility] ALKALINE PHOSPH 99 IU/L Normal 34-104 The [facility] Comment on above: Performed By: #### 4 1000, 22227, 98446, 83983, 36708, 06727 ####[facility] ALT enzyme act/vol 19 U/L Normal 7-52 The [facility] Comment on above: Performed By: #### 4 1000, 05011, 09461, 41967, 43656, 72323 ####[facility] AST enzyme act/vol 21 U/L Normal 13-39 The [facility] Comment on above: Performed By: #### 4 1000, 66936, 08584, 00731, 57705, 40212 ####[facility] Bilirubin mass conc 0.6 mg/dL Normal 0.3-1.0 [facility] Comment on above: Performed By: #### 4 1000, 28929, 49117, 52265, 73028, 41032 ####[facility] [place] [address], [place] Calcium mass conc 10.2 mg/dL Normal 8.6-10.3 The [facility] Comment on above: Performed By: #### 4 1000, 12817, 33937, 61139, 23109, 99976 ####[facility] [place] [address], [place] Chloride molar conc 104 mmol/L Normal 98-107 The [facility] Comment on above: Performed By: #### 4 1000, 33434, 14272, 02203, 20914, 50451 ####[facility] [place] [address], [place] CO2 molar conc 28 mmol/L Normal 21-31 The [facility] Comment on above: Performed By: #### 4 1000, 14493, 23596, 13214, 19516, 17169 ####[facility] [place] [address], [place] Creatinine mass conc 0.78 mg/dL Normal 0.60-1.20 The [facility] Comment on above: Performed By: #### 4 1000, 47581, 48893, 13094, 16690, 94451 ####[facility] [place] [address], [place] GFR/1.73 sq M predicted among blacks MDRD vol rate/area (S/P/Bld) mL/min/{1.73_m2} Normal >60 The [facility] Comment on above: Performed By: #### 4 1000, 96692, 19932, 30894, 31346, 16388 ####[facility] [place] [address], [place] GFR/1.73 sq M predicted among non-blacks MDRD vol rate/area (S/P/Bld) mL/min/{1.73_m2} Normal >60 The [facility] Comment on above: Performed By: #### 4 1000, 09855, 86725, 14049, 49856, 58928 ####[facility] [place] [address], [facility] Glucose mass conc 87 mg/dL Normal 70-100 The [facility] Comment on above: Performed By: #### 4 1000, 11513, 99920, 80050, 67048, 49770 ####[facility] [place] [address], [facility] Potassium molar conc 4.1 mmol/L Normal 3.5-5.1 The [facility] Comment on above: Performed By: #### 4 1000, 23600, 89980, 11185, 33164, 07303 ####[facility] [place] [address], [facility] Protein mass conc 7.8 g/dL Normal 6.0-8.3 The [facility] Comment on above: Performed By: #### 4 1000, 44612, 81713, 24296, 14297, 70338 ####[facility] [place] [address], [facility] Sodium molar conc 139 mmol/L Normal 136-145 The [facility] Comment on above: Performed By: #### 4 1000, 82122, 23820, 89602, 56756, 56892 ####[facility] [place] [address], [facility] Urea nitrogen mass conc 19 mg/dL Normal 7-25 The [facility] Comment on above: Performed By: #### 4 1000, 50085, 31906, 37852, 10628, 38915 ####[facility] [place] [address], [facility] DIRECT BILIon 03-27-2017 Bilirubin.direct mass conc 0.1 mg/dL Normal 0.0-0.2 The [facility] Comment on above: Performed By: #### 4 1000, 26910, 28339, 24155, 19807, 20651 ####[facility] EVEROLIMUS 56939gl 7 EVEROLIMUS 5.3 ng/mL Normal The [facility] Comment on above: Result Comment: Ther apeutic [...] the transplantcenter.Test developed and characteristics determined by [facility]. See Compliance Statement B: [employer]/CSPerformed by [employer],[address] [place] [id number] kek.[employer], Leonid Antonio MD - Lab. Director LIPID PROFILEon 03-27-2017 Cholesterol in HDL mass conc 50 mg/dL Normal 23-92 The [facility] Comment on above: Result Comment: Slig ht variation in normal range could be due to gender and/or age.HDL CHOLESTEROL REFERENCE RANGE:20 years and older Cardiovascular Risk> or =60 mg/dL Rkhygaefh72 TO 59 mg/dL Low Risk<40 mg/dL High Risk Performed By: #### 4 1000, 53165, 07084, 36586, 67886, 62128 ####[facility] [place] [address], [facility] Cholesterol in LDL mass conc 66 mg/dL Normal 0-130 The [facility] Comment on above: Result Comment: LDL IS A CALCULATIONLDL IS ONLY VALID IF THE TRIG IS LESS THAN 400. Performed By: #### 4 1000, 44655, 86155, 55714, 66371, 78381 ####[facility] [place] [address], [facility] Cholesterol mass conc 147 mg/dL Normal 120-200 The [facility] Comment on above: Result Comment: CHOL ESTEROL REFERENCE RANGE:20 YEARS AND OLDER CARDIOVASCULAR RISKLess than 200 mg/dl Low Dlmv576 to 239 mg/dl Borderline Iphf746 mg/dl and greater High Risk Performed By: #### 4 1000, 57833, 39866, 96669, 09984, 78932 ####[facility] [place] [address], [facility] Cholesterol.total/Cho lesterol in HDL mass ratio 2.9 {ratio} Normal .0-4.5 The [facility] Comment on above: Performed By: #### 4 1000, 93441, 35409, 41473, 05348, 67332 ####[facility] [facility] [place] [address], [facility] NON-HDL CHOLESTEROL 97 mg/dL Normal The [facility] Comment on above: Performed By: #### 4 1000, 79621, 43496, 73694, 23028, 22173 ####[facility] [place] [address], [facility] Triglyceride mass conc 157 mg/dL High 40-149 The [facility] Comment on above: Result Comment: TRIG LYCERIDE REFERENCE RANGE:20 YEARS AND OLDER CARDIOVASCULAR RISKLESS THAN 150 mg/dl LOW [id number] TO 199 mg/dl BORDERLINE [id number] mg/dl AND GREATER HIGH RISK Performed By: #### 4 1000, 73465, 28701, 67136, 97661, 01513 ####[facility] VLDL CHOL 31 mg/dL Normal 0-40 The [facility] Comment on above: Performed By: #### 4 1000, 06563, 04980, 99733, 85580, 22874 ####[facility] [facility] MAGNESIUM BLOODon 03-27-2017 Magnesium mass conc 1.9 mg/dL Normal 1.9-2.7 The [facility] Comment on above: Performed By: #### 4 1000, 51239, 85030, 02593, 33909, 28319 ####[facility] [facility].[address] PHOSPHORUS BLOODon 7 Phosphate mass conc 3.4 mg/dL Normal 2.5-5.0 The [facility] Comment on above: Performed By: #### 4 1000, 40324, 48162, 56619, 01653, 07323 ####[facility] [facility].[address] TACROLIMUSon 03-27-2017 Tacrolimus mass conc (Bld) 3.7 ng/mL Low 5.0-20.0 The [facility] Comment on above: Result Comment: The [facility] Tacrolimus assay is a delayed one-step immunoassayfor the quantitative determination of tacrolimus in human whole bloodusing the chemiluminescent microparticle immunoassay (CMIA) technologywith flexible assay protocols, referred to as Chemiflex. Performed By: #### 4 1000, 54913, 97146, 36952, 07038, 72155 ####[facility] [place] [address], [facility] URIC ACID BLOODon 03-27-2017 Urate mass conc 4.1 mg/dL Normal 2.3-6.6 [facility] Comment on above: Performed By: #### 4 1000, 96350, 86157, 70125, 81310, 14314 ####[place] [address] BK VIRUS QUANTITATION PCR BL OODon 02-26-2017 BKV QUANT PCR Not detected Normal The [facility] Comment on above: Result Comment: Meth od: BK virus was measured by quantitative polymerase chain reactionusing a TaqMan probe targeting the polyomavirus BK APICULTURIST-1 gene.The lower limit of quantitation of the assay is 500 copies of BK genomeper milliliter of plasma or urine, and any detectable BK DNA below thatlevel is reported as: Detected, <500 copies/ml. Serial BK virusmeasurement can be used to monitor disease activity. (Reference:Kelsie vaughanl. J CLIN MICRO 2004; 42:9024-1452).This test was developed and its performance characteristics determinedby the [facility] Molecular Diagnostics Laboratory. It has not been approvedby the US Food and Drug Administration. However, such approval is notrequired for clinical implementation, and test results have been shownto be clinically useful. This laboratory is CAP accredited and CLIAcertified to perform high complexity testing. Performed By: #### 4 1000, 47856, 40209, 93180, 84537, 46973 ####[place] [address] [facility].[address] LOG 10 COPIES Not detected Normal The [facility] Comment on above: Performed By: #### 4 1000, 93671, 74869, 89681, 04078, 12332 ####[place] [address] [facility].[address] CBC W/DIFFon 02-26-2017 Basophils Auto #/vol (Bld) 0.3 % Normal 0.0-2.0 The [facility] Comment on above: Performed By: #### 5 0103 ####[address] Eosinophils/100 WBC Auto (Bld) 2.2 % Normal 0.0-5.0 The [facility] Comment on above: Performed By: #### 5 0103 ####[address] [place] [address], [place] Erythrocyte distribution width Auto Ratio (RBC) 13.8 % Normal 11.5-16.9 The [facility] Comment on above: Performed By: #### 5 0103 ####[place] [address] Hematocrit Auto Volume Fraction (Bld) 44.9 % Normal 36.0-48.0 The [facility] Comment on above: Performed By: #### 5 0103 ####[place] [address] Hemoglobin mass conc (Bld) 15.0 g/dL Normal 12.0-15.0 The [facility] Comment on above: Performed By: #### 3 ####[address] Lymphocytes/100 WBC Auto (Bld) 18.9 % Low 20.0-40.0 The [facility] Comment on above: Performed By: #### 5 0103 ####[place] [address] MCH Auto Entitic mass (RBC) 28.9 pg Normal 24.0-32.0 The [facility] Comment on above: Performed By: #### 5 0103 ####[place] [address] MCHC Auto mass conc (RBC) 33.4 g/dL Normal 32.0-36.0 The [facility] Comment on above: Performed By: #### 5 0103 ####[address] MCV Auto Entitic volume (RBC) 86.6 fL Normal 80.0-100.0 The [facility] Comment on above: Performed By: #### 5 0103 ####[address] [place] [address], [place] METHOD Normal RBC Morphology Normal The [facility] Comment on above: Performed By: #### 5 0103 ####[facility] [place] [address], [facility] MONOS 11.7 % High 2-8 The [facility] Comment on above: Performed By: #### 5 0103 ####[facility] [facility].[address] Neutrophils/100 WBC Auto (Bld) 66.9 % Normal 50-70 The [facility] Comment on above: Performed By: #### 5 0103 ####[facility] [facility].[address] PLAT CNT 230 Thou/mm3 Normal 100-400 The [facility] Comment on above: Performed By: #### 5 0103 ####[facility] [facility].[address] RBC Auto #/vol (Bld) 5.18 mill/mm3 Normal 3.50-5.50 T he [facility] Comment on above: Performed By: #### 5 0103 ####[facility] [facility].[address] WBC Auto #/vol (Bld) 5.8 Thou/mm3 Normal 4.0-10.0 Th e [facility] Comment on above: Performed By: #### 5 0103 ####[facility] [facility].[address] COMP METABOLIC PANELon 02-26 Albumin mass conc 4.7 g/dL Normal 3.5-5.7 The [facility] Comment on above: Performed By: #### 4 1000, 80860, 93241, 01304, 96994, 51788 ####[facility] [place] [address], [place] ALKALINE PHOSPH 115 IU/L High 34-104 The [facility] Comment on above: Performed By: #### 4 1000, 43865, 18452, 09641, 44796, 94756 ####[facility] [place] [address], [facility] ALT enzyme act/vol 18 U/L Normal 7-52 The [facility] Comment on above: Performed By: #### 4 1000, 76685, 61589, 92118, 01518, 54061 ####[facility] [place] [address], [place] AST enzyme act/vol 22 U/L Normal 13-39 The [facility] Comment on above: Performed By: #### 4 1000, 39519, 34629, 98221, 92766, 96353 ####[facility] [place] [address], [facility] Bilirubin mass conc 0.6 mg/dL Normal 0.3-1.0 The [facility] Comment on above: Performed By: #### 4 1000, 14801, 15462, 96219, 63530, 92351 ####[facility] [place] [address], [facility] Calcium mass conc 9.8 mg/dL Normal 8.6-10.3 The [facility] Comment on above: Performed By: #### 4 1000, 01489, 90858, 61222, 54980, 56475 ####[facility] [place] [address], [place] Chloride molar conc 103 mmol/L Normal 98-107 The [facility] Comment on above: Performed By: #### 4 1000, 03253, 44239, 29189, 63466, 75118 ####[facility] [place] [address], [place] CO2 molar conc 29 mmol/L Normal 21-31 The [facility] Comment on above: Performed By: #### 4 1000, 26101, 61021, 20917, 67423, 93146 ####[facility] [place] [address], [facility] Creatinine mass conc 0.78 mg/dL Normal 0.60-1.20 [facility] Comment on above: Performed By: #### 4 1000, 96752, 99819, 61161, 68125, 86708 ####[facility] [place] [address], [facility] GFR/1.73 sq M predicted among blacks MDRD vol rate/area (S/P/Bld) mL/min/{1.73_m2} Normal >60 The [facility] Comment on above: Performed By: #### 4 1000, 85633, 95412, 18129, 12395, 19826 ####[facility] [facility] [place] [address], [facility] GFR/1.73 sq M predicted among non-blacks MDRD vol rate/area (S/P/Bld) mL/min/{1.73_m2} Normal >60 The [facility] Comment on above: Performed By: #### 4 1000, 33368, 04507, 91857, 03228, 14228 ####[facility] [place] [address], [facility] Glucose mass conc 94 mg/dL Normal 70-100 The [facility] Comment on above: Performed By: #### 4 1000, 24476, 77732, 44038, 36071, 54497 ####[facility] [place] [address], [facility] Potassium molar conc 3.8 mmol/L Normal 3.5-5.1 [facility] Comment on above: Performed By: #### 4 1000, 78030, 42961, 38307, 00872, 33314 ####[facility] [facility].[address] Protein mass conc 7.4 g/dL Normal 6.0-8.3 The [facility] Comment on above: Performed By: #### 4 1000, 94085, 31760, 75506, 55836, 81719 ####[place] [address] [facility].[address] Sodium molar conc 136 mmol/L Normal 136-145 The [facility] Comment on above: Performed By: #### 4 1000, 06517, 68606, 97555, 30633, 97557 ####[place] [address] [facility].[address] Urea nitrogen mass conc 19 mg/dL Normal 7-25 The [facility] Comment on above: Performed By: #### 4 1000, 46632, 55846, 82827, 89182, 52739 ####[place] [address] [facility] DIRECT BILIon 02-26-2017 Bilirubin.direct mass conc 0.1 mg/dL Normal 0.0-0.2 The [facility] Comment on above: Performed By: #### 4 1000, 23893, 36593, 56356, 78279, 16646 ####[place] [address] [facility].[address] EVEROLIMUS 33026me 7 EVEROLIMUS 5.9 ng/mL Normal The [facility] Comment on above: Result Comment: Ther apeutic [...] the transplantcenter.Test developed and characteristics determined by [facility]. See Compliance Statement B: [employer]/CSPerformed by [employer],[address] [place] [address] vfz.[employer], Leonid Antonio MD - Lab. Director HEMOGLOBIN A1Con 02-26-2017 Glucose mass conc 108 mg/dL Normal 70-126 The [facility] Comment on above: Performed By: #### 4 6447, 62164 ####[facility] Hemoglobin A1c/Hemoglobin.total mass fraction (Bld) 5.4 % Normal 4.0-6.0 The [facility] Comment on above: Performed By: #### 4 6447, 03302 ####[facility] [facility].[address] LIPID PROFILEon 02-26-2017 Cholesterol in HDL mass conc 54 mg/dL Normal 23-92 The [facility] Comment on above: Result Comment: Slig ht variation in normal range could be due to gender and/or age.HDL CHOLESTEROL REFERENCE RANGE:20 years and older Cardiovascular Risk> or =60 mg/dL Dsiedrnov00 TO 59 mg/dL Low Risk<40 mg/dL High Risk Performed By: #### 4 1000, 67688, 81453, 62029, 52321, 61817 ####[facility] [place] [address], [facility] Cholesterol in LDL mass conc 70 mg/dL Normal 0-130 The [facility] Comment on above: Result Comment: LDL IS A CALCULATIONLDL IS ONLY VALID IF THE TRIG IS LESS THAN 400. Performed By: #### 4 1000, 31557, 86101, 95875, 62657, 86575 ####[facility] [place] [address], [facility] Cholesterol mass conc 144 mg/dL Normal 120-200 The [facility] Comment on above: Result Comment: CHOL ESTEROL REFERENCE RANGE:20 YEARS AND OLDER CARDIOVASCULAR RISKLess than 200 mg/dl Low Caax751 to 239 mg/dl Borderline Zabv744 mg/dl and greater High Risk Performed By: #### 4 1000, 05592, 18965, 70573, 30692, 36386 ####[facility] [place] [address], [facility] Cholesterol.total/Cho lesterol in HDL mass ratio 2.7 {ratio} Normal .0-4.5 The [facility] Comment on above: Performed By: #### 4 1000, 04439, 18168, 94938, 62062, 97511 ####[facility] [place] [address], [facility] NON-HDL CHOLESTEROL 90 mg/dL Normal The [facility] Comment on above: Performed By: #### 4 1000, 19017, 58845, 86613, 82223, 39287 ####[facility] [place] [address], [facility] Triglyceride mass conc 101 mg/dL Normal 40-149 The [facility] Comment on above: Result Comment: TRIG LYCERIDE REFERENCE RANGE:20 YEARS AND OLDER CARDIOVASCULAR RISKLESS THAN 150 mg/dl LOW [id number] TO 199 mg/dl BORDERLINE GFKE978 mg/dl AND GREATER HIGH RISK Performed By: #### 4 1000, 73825, 97336, 60611, 93540, 10065 ####[facility] [place] [address], [place] VLDL CHOL 20 mg/dL Normal 0-40 The [facility] Comment on above: Performed By: #### 4 1000, 09390, 31096, 56203, 79196, 98932 ####[facility] [facility].[address] MAGNESIUM BLOODon 02-26-2017 Magnesium mass conc 1.9 mg/dL Normal 1.9-2.7 The [facility] Comment on above: Performed By: #### 4 1000, 09635, 56782, 41348, 51992, 18238 ####[facility] PHOSPHORUS BLOODon 7 Phosphate mass conc 4.1 mg/dL Normal 2.5-5.0 [facility] Comment on above: Performed By: #### 4 1000, 99325, 90930, 96007, 67138, 63651 ####[facility] TACROLIMUSon 02-26-2017 Tacrolimus mass conc (Bld) 4.2 ng/mL Low 5.0-20.0 The [facility] Comment on above: Result Comment: The [facility] [employer] Tacrolimus assay is a delayed one-step immunoassayfor the quantitative determination of tacrolimus in human whole bloodusing the chemiluminescent microparticle immunoassay (CMIA) technologywith flexible assay protocols, referred to as Chemiflex. Performed By: #### 4 6447, 73986 ####[facility] URIC ACID BLOODon 02-26-2017 Urate mass conc 4.3 mg/dL Normal 2.3-6.6 The [facility] Comment on above: Performed By: #### 4 1000, 00385, 56039, 48837, 52655, 28715 ####[facility] Social History Date Type Detail Facility Start: 08-30-2023 Tobacco smoking status NHIS Never smoked tobacco (finding) [facility] Start: 1955 Sex Assigned At Female F [facility] Unknown if ever smoked [employer] Other Sex Assigned At Sex Assigned At Bir th [employer] Other Vital Signs Date Time Vital Sign Value Performing Clinician Facility 08-30-2023 09:22-0400 Body height 182.88 cm [facility] 08-30-2023 09:22-0400 Body mass index (BMI) [Ratio] 17.9 kg/m2 [facility] 08-30-2023 09:22-0400 Body temperature 99.8 [degF] [facility] 08-30-2023 09:22-0400 Body weight 59.87 kg [facility] 08-30-2023 09:22-0400 Diastolic blood pressure 73 mm[Hg] [facility] 08-30-2023 09:22-0400 Heart rate 67 /min [facility] 08-30-2023 09:22-0400 SaO2% (BldA) [Mass fraction] 95 % [facility] 08-30-2023 09:22-0400 Systolic blood pressure 111 mm[Hg] [facility] 03-27-2023 11:30-0500 Body height 152.4 cm Cathy Bella Other [facility] [employer] Other 03-27-2023 11:30-0500 Body mass index (BMI) [Ratio] 25.39 kg/m2 Cathy Bella Other [employer] [facility] [employer] Other 03-27-2023 11:30-0500 Body temperature 97.5 [degF] Cathy Bella Other [employer] Other 03-27-2023 11:30-0500 Body weight 58.97 kg Cathy Bella Other [employer] Other 03-27-2023 11:30-0500 Respiratory rate 18 /min Cathy Bella Other [employer] Other 03-27-2023 11:30-0500 SaO2% (BldA) [Mass fraction] 96 % Cathy Bella Other [employer] [facility] Other 09-21-2022 09:00-0400 Body height 152.4 cm Martha Smithmond Other [employer] Other 09-21-2022 09:00-0400 Body mass index (BMI) [Ratio] 22.46 kg/m2 Martha Smithmond Other [employer] Other 09-21-2022 09:00-0400 Body temperature 97.6 [degF] Martha Smithmond Other [employer] Other 09-21-2022 09:00-0400 Body weight 52.16 kg Martha Smithmond Other [employer] Other 09-21-2022 09:00-0400 Diastolic blood pressure 70 mm[Hg] Martha Paola Other [employer] Other 09-21-2022 09:00-0400 Respiratory rate 18 /min Martha Paola Other [employer] Other 09-21-2022 09:00-0400 SaO2% (BldA) [Mass fraction] 96 % Martha Paloa Other [employer] Other 09-21-2022 09:00-0400 Systolic blood pressure 107 mm[Hg] Martha Paola Other [employer] Other 01-12-2022 13:55-0400 Body height 152.4 cm Cathy Bella Other [employer] Other 01-12-2022 13:55-0400 Body mass index (BMI) [Ratio] 19.53 kg/m2 Cathy Shayne Other [employer] Other 01-12-2022 13:55-0400 Body temperature 96.9 [degF] Cathy Bella Other [employer] Other 01-12-2022 13:55-0400 Body weight 45.36 kg Cathy Shayne Other [employer] Other 01-12-2022 13:55-0400 Respiratory rate 18 /min Cathy Bella Other [employer] Other 01-12-2022 13:55-0400 SaO2% (BldA) [Mass fraction] 97 % Cathy Bella Other [employer] Other 12-28-2021 10:20-0400 Body height 152.4 cm Martha Paola Other [employer] Other 12-28-2021 10:20-0400 Body mass index (BMI) [Ratio] 21.48 kg/m2 Martha Paola Other [employer] Other 12-28-2021 10:20-0400 Body temperature 98 [degF] Martha Paola Other [employer] Other 12-28-2021 10:20-0400 Body weight 49.9 kg Martha Paola Other [employer] Other 12-28-2021 10:20-0400 Respiratory rate 18 /min Martha Paola Other [employer] Other 12-28-2021 10:20-0400 SaO2% (BldA) [Mass fraction] 97 % Martha Guevara Other [employer] Other 12-25-2021 10:05-0400 Body height 152.4 cm Cathy Bella Other [employer] Other 12-25-2021 10:05-0400 Body mass index (BMI) [Ratio] 21.48 kg/m2 Cathy Bella Other [employer] Other 12-25-2021 10:05-0400 Body temperature 96 [degF] Cathy Bella Other [employer] Other 12-25-2021 10:05-0400 Body weight 49.9 kg Cathy Bella Other [employer] Other 12-25-2021 10:05-0400 Respiratory rate 18 /min Cathy Bella Other [employer] Other 12-25-2021 10:05-0400 SaO2% (BldA) [Mass fraction] 97 % Cathy Bella Other [employer] Other 10-27-2021 12:35-0400 Body height 152.4 cm Cathy Bella Other [employer] Other 10-27-2021 12:35-0400 Body mass index (BMI) [Ratio] 22.85 kg/m2 Cathy Bella Other [employer] Other 10-27-2021 12:35-0400 Body weight 53.07 kg Cathy Bella Other [employer] Other 10-27-2021 12:35-0400 Diastolic blood pressure 87 mm[Hg] Cathy Bella Other [employer] Other 10-27-2021 12:35-0400 SaO2% (BldA) [Mass fraction] 98 % Ctahy Bella Other [employer] Other 10-27-2021 12:35-0400 Systolic blood pressure 130 mm[Hg] Cathy Bella Other [employer] Other 08-14-2021 10:40-0400 Body height 152.4 cm Martha Paola Other [employer] Other 08-14-2021 10:40-0400 Body mass index (BMI) [Ratio] 22.46 kg/m2 Martha Paola Other [employer] Other 08-14-2021 10:40-0400 Body temperature 96.7 [degF] Martha Paola Other [employer] Other 08-14-2021 10:40-0400 Body weight 52.16 kg Martha Paola Other [employer] Other 08-14-2021 10:40-0400 Diastolic blood pressure 68 mm[Hg] Martha Paola Other [employer] Other 08-14-2021 10:40-0400 Respiratory rate 20 /min Martha Paola Other [employer] Other 08-14-2021 10:40-0400 SaO2% (BldA) [Mass fraction] 98 % Martha Paola Other [employer] Other 08-14-2021 10:40-0400 Systolic blood pressure 144 mm[Hg] Martha Guevara Other [employer] Other Clinical Notes 11-10-2007 to 03-27-2023 Note [...] and rest, Tylenol as directed, rx of Minerva, cool mist humidifier, throat lozenges. Discussed infection [...] condition. Feb, Sore throat (ICD-10 - J02.9) [employer] Other 12-18-2023 Note03/17/23 Chief Complaint Patient presents with Kidney Follow-up Patient would like to know if Virgil would prescribe depression medication. PCP: Ramon Carroll MD Txp Referring: Preferred Pharmacy: [facility] - [place], [place] - [address] [facility] [address] [id number] [place], [place] - [address] [facility] [address] [place] [phone] [facility] - [address] [facility] [address] Subjective Visit Vitals BP 142/80 (BP Location: Right arm, Patient Position: Sitting) Pulse 63 Temp 36.3 ???C (97.4 ???F) (Oral) Ht 1.524 m (5') Wt 60.6 kg (133 lb 9.6 oz) BMI 26.09 kg/m??? Smoking Status Never BSA 1.6 m??? No Known Allergies Medication Documentation Review Audit Reviewed by Flakita Lagos MA ([employer]) on 03/17/23 at 0956 Medication Order Taking? Sig Documenting Provider Last Dose Status amLODIPine (Norvasc) 5 mg tablet [id number] Yes TAKE 1 TABLET BY MOUTH EVERY DAY Virgil Haynes NP Taking Active amoxicillin (Amoxil) 500 mg capsule [id number] No 1 capsule every 8 (eight) hours. Historical ProviderMD Not Taking Active atorvastatin (Lipitor) 20 mg tablet [id number] Yes TAKE 1 TABLET BY MOUTH EVERY DAY AT BEDTIME Virgil Haynes NP Taking Active baclofen (Lioresal) 10 mg tablet [id number] Yes Historical ProviderMD Taking Active cyanocobalamin (Vitamin B-12) 500 mcg tablet [id number] No in the morning. Historical MD Blanche Not Taking Active magnesium oxide (Mag-Ox) 400 mg (241.3 mg magnesium) tablet [id number] Yes Take 400 mg by mouth in the morning. Historical MD Blanche Taking Active mycophenolate (Myfortic) 180 mg EC tablet [id number] Yes TAKE 4 TABLETS BY MOUTH IN THE MORNING AND AT BEDTIME Doe Bridges MD Taking Active omega-3 fatty acids-fish oil (Fish OiL Extra Strength) 435-880 mg capsule [id number] No 1 capsule 1 (one) time each day at the same time. Yasmin Mancia MD Not Taking Active PARoxetine (Paxil) 10 mg tablet [id number] Yes Take 10 mg by mouth in the morning. Yasmin Mancia MD Taking Active potassium gluconate 595 mg (99 mg) tablet [id number] No every 12 (twelve) hours. Yasmin Mancia MD Not Taking Active spironolactone (Aldactone) 25 mg tablet [id number] Yes TAKE 1 TABLET BY MOUTH EVERY DAY Virgil Haynes NP Taking Active tacrolimus (Prograf) 0.5 mg capsule [id number] Yes TAKE ONE CAPSULE BY MOUTH EVERY [...] Pt states labs done Last week in [facility] and [place] calling for results. Pt seeing Derm in [place] for lesion: forearm and other lesions. Hx: [...] Hgb. Pt AGAIN instructed to use our [facility] Transplant standing order for her monthly labs. Pt reports B/P stable at home Discussed hydration PLan of Care: Continue meds and MONTHLY Labs with [facility] standing Order. Follow up 6 months or [...] ; Creat 0.9 ; (more content not included)...[facility]10-18-2023 Note Reviewed Ext Tac 3.6 over the phone with Dr. Vivas, per phone order no changes at this time.[facility]07-14-2023 NoteReviewed labs from 10/09/22, no changes.[facility]06-20-2023 Note 09/17/22 Chief Complaint Patient presents with Kidney Follow-up Patient has no new concerns PCP: Ramon Carroll MD Txp Referring: Preferred Pharmacy: [facility] - [place], [place] - [address] [facility] [address] [id number] [place], [place] - [address] [place] [phone] Subjective Visit Vitals BP 123/81 (BP Location: Right arm, Patient Position: Sitting, BP Cuff Size: Adult) Pulse 77 Temp 36.7 ???C (98.1 ???F) Ht 1.524 m (5') Wt 58.1 kg (128 lb) BMI 25.00 kg/m??? Smoking Status Never BSA 1.57 m??? No Known Allergies Medication Documentation Review Audit Reviewed by LUANN HERNÁNDEZ ([employer]) on 09/17/22 at 1019 Medication Order Taking? Sig Documenting Provider Last Dose Status amLODIPine (Norvasc) 5 mg tablet [id number] Take 5 mg by mouth in the morning. Historical Provider, Active amoxicillin (Amoxil) 500 mg capsule [id number] 1 capsule every 8 (eight) hours. Historical Provider, Active atorvastatin (Lipitor) 20 mg tablet [id number] Take 20 mg by mouth in the morning. Historical Provider, Active cyanocobalamin (Vitamin B-12) 500 mcg tablet [id number] in the morning. Historical ProviderMD Active magnesium oxide (Mag-Ox) 400 mg (241.3 mg magnesium) tablet [id number] Take 400 mg by mouth in the morning. Historical ProviderMD Active mycophenolate (Myfortic) 180 mg EC tablet [id number] Take 4 tablets (720 mg) by mouth in the morning and at bedtime. Patient should take as directed BID Doe Bridges MD Active omega-3 fatty acids-fish oil (Fish OiL Extra Strength) 435-880 mg capsule [id number] 1 capsule 1 (one) time each day at the same time. Historical ProviderMD Active potassium gluconate 595 mg (99 mg) tablet [id number] every 12 (twelve) hours. Historical ProviderMD Active spironolactone (Aldactone) 25 mg tablet [id number] Take 25 mg by mouth in the morning. Historical ProviderMD Active tacrolimus (Prograf) 0.5 mg capsule [id number] Take 1 capsule (0.5 mg) by mouth in the morning and at bedtime. Take 1mg tacrolimus PO Qam and 0.5mg PO Qpm or as directed TDD 2mg, z94.0 Anthony Kunz MD Active tacrolimus (Prograf) 1 mg capsule [id number] Take 1 capsule (1 mg) by mouth [...] since 08/17/22 No documented travel since 08/17/22 LARRY Grimm is a 66 y.o. female [...] had intermittent mild bilateral (more content not included)...[facility]10-15-2022 Evaluation note* Encounter Date Diagnosis Assessment Notes [...] understanding and is agreeable with treatment plan [employer] Other 09-30-2022 Evaluation note* Encounter Date Diagnosis [...] no improvement in 2 to 3 days. [employer] Other 09-27-2022 Evaluation note* Encounter Date Diagnosis [...] treatment plan. 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 Other Summary Purpose Family History No Family History Records Found Relationship Condition Age at Onset Recorded Date/T susie father Unknown family member Unknown Not Specified Unknown Advance Directives No Advanced Directives Records Found Advance Directive Response Recorded Date/ Time Advance Directives No August 16 1:54pm Chief Complaint and Reason for Visit Chief Complaint sore throat Reason for Visit Thrush, oral Sore throat Additional Source Comments INFORMATION SOURCE (unrecogn ized section and content) DATE CREATED AUTHOR 01/30/2018 [facility] DATE CREATED AUTHOR AUTHOR'S ORGANIZ ATION 08/17/2021 [facility] DATE CREATED AUTHOR AUTHOR'S ORGANIZ ATION 08/13/2022 [facility] DATE CREATED AUTHOR AUTHOR'S ORGANIZ ATION 08/29/[address] [facility] DATE CREATED AUTHOR AUTHOR'S ORGANIZ ATION 09/03/2023 [facility] EPIC REASON FOR VISIT (unrecogniz ed section and content) DYSURIADYSURIADYSURIAPOSS RA SH ON BACK, ITCHINGDODGE JOURNEY, SORE THROAT, COUGHBLACK DODGE JOURNT SORE THROATIN CAR, MOUTH SORES, CALL [phone] THROAT, COUGHING, DRAINAGE Care Teams (unrecognized sec tion and content) Team Status: Active Member Role Status Dates Shelly May Primary Care Provider Active Team Status: Inactive Member Role Status Dates Shelly May Primary Care Provider Active Start: August 30, 2023 End: August 30, 2023 Lindsay Soria APRN Attending Provider Active Start: August 30, 2023 End: August 30, 2023 Goals (unrecognized section and content) Goals may be documented in a n alternate section FOR RECORDS PERTAINING TO PATIENTS WHO ARE [...] BE BASED ON THE PRIMARY CLINICAL RECORDS. [facility] [facility]. provides no warranty or guarantee of the accuracy or completeness of information in this document.
[2023-09-19 07:23] LABS: Basophils Percent Auto 0.2 % (0.2-2.0); Eosinophils Absolute Auto 0.2 10^3/uL (0.0-0.7); Eosinophils Percent Auto 2.3 % (0.9-7.0); Hematocrit 41.4 % (36.0-48.0); Hemoglobin 13.4 g/dL (12.0-16.0); Immature Granulocytes Abs Auto 0.02 10^3/uL (0.00-0.03); Immature Granulocytes Pct Auto 0.3 % (0.0-0.5); Lymphocytes Absolute Auto 1.3 10^3/uL (1.2-3.8); Lymphocytes Percent Auto 19.4 % (20.5-60.0); Mean Corpuscular HGB Conc 32.4 g/dL (29.9-35.2); Mean Corpuscular Hemoglobin 30.2 pg (26.7-34.0); Mean Corpuscular Volume 93.2 fL (81.0-99.0); Mean Platelet Volume 11.7 fL (9.5-13.5); Monocytes Absolute Auto 0.7 10^3/uL (0.3-0.8); Monocytes Percent Auto 10.7 % (1.7-12.0); Neutrophils Absolute Auto 4.4 10^3/uL (1.4-6.5); Neutrophils Percent Auto 67.1 % (43.0-75.0); Platelet Count 231 10^3/uL (150-450); Red Blood Count 4.44 10^6/uL (4.20-5.40); Red Cell Distribution Width 14.8 % (11.0-15.0); White Blood Count 6.5 10^3/uL (4.0-11.0)
[2023-09-19 08:31] LABS: Estimated Average Glucose 108 mg/dL; Glycohemoglobin A1C 5.4 % (4.5-6.2)
[2023-09-19 08:39] LABS: Alanine Aminotransferase 16 U/L (14-59); Albumin Globulin Ratio 1.1; Albumin Level 3.6 g/dL (3.4-5.0); Alkaline Phosphatase 138 U/L (46-116); Anion Gap 11.7; Aspartate Amino Transferase 12 U/L (15-37); Bilirubin Direct 0.2 mg/dL (0.0-0.2); Bilirubin Total 0.7 mg/dL (0.2-1.0); Calcium 8.9 mg/dL (8.5-10.1); Carbon Dioxide 27.2 mmol/L (21.0-32.0); Chloride 107 mmol/L (98-107); Chol HDL Ratio 2.3; Cholesterol 124 mg/dL (<=200); Estimated GFR (African America >60 (>=60); Estimated GFR (Non-African Ame >60 (>=60); Globulin 3.2 g/dL; Glucose 95 mg/dL (74-106); HDL Cholesterol 53 mg/dL (40-60); LDL Cholesterol Calculated 59.6 mg/dL; Magnesium 1.9 mg/dL (1.8-2.4); Phosphorus 3.4 mg/dL (2.6-4.7); Potassium 3.9 mmol/L (3.5-5.1); Sodium 142 mmol/L (136-145); Total Protein 6.8 g/dL (6.4-8.2); Triglycerides 57 mg/dL (<=150); Uric Acid 5.5 mg/dL (2.6-6.0); VLDL CHOLESTEROL 11.4 mg/dL
[2023-09-22 09:08] LABS: Tacrolimus (FK506), Blood 4.1 ng/mL (2.0-20.0)
[2023-09-22 12:08] LABS: BKV DNA, Quant PCR, Plasma Negative (Negative)
== END 2023-09-19 06:39 | disposition home or self-care (01) ==
LOC: LAB 06:40
PROVIDERS: PCP Internal Medicine
DX: Z79.899 Other long term (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 therapy (principal); Z48.298 Encounter for aftercare following other organ transplant; Z94.0 Kidney transplant status
CPT/HCPCS: 36415; 80053; 80061; 80197; 82248; 83036; 83735; 84100; 84550; 85025; 87799

== ENCOUNTER 2023-10-13 06:40 | Outpatient (OUT) | payer MEDICARE, SELFPAY ==
[2023-10-13 07:21] LABS: Basophils Percent Auto 0.1 % (0.2-2.0); Eosinophils Absolute Auto 0.2 10^3/uL (0.0-0.7); Eosinophils Percent Auto 2.7 % (0.9-7.0); Hemoglobin 14.3 g/dL (12.0-16.0); Immature Granulocytes Abs Auto 0.02 10^3/uL (0.00-0.03); Immature Granulocytes Pct Auto 0.3 % (0.0-0.5); Lymphocytes Absolute Auto 1.6 10^3/uL (1.2-3.8); Mean Corpuscular HGB Conc 31.8 g/dL (29.9-35.2); Mean Corpuscular Hemoglobin 30.2 pg (26.7-34.0); Mean Corpuscular Volume 95.1 fL (81.0-99.0); Mean Platelet Volume 11.3 fL (9.5-13.5); Monocytes Absolute Auto 0.6 10^3/uL (0.3-0.8); Monocytes Percent Auto 8.7 % (1.7-12.0); Neutrophils Absolute Auto 4.8 10^3/uL (1.4-6.5); Neutrophils Percent Auto 66.2 % (43.0-75.0); Platelet Count 250 10^3/uL (150-450); Red Blood Count 4.73 10^6/uL (4.20-5.40); Red Cell Distribution Width 14.7 % (11.0-15.0); White Blood Count 7.3 10^3/uL (4.0-11.0)
[2023-10-13 07:49] LABS: Estimated Average Glucose 114 mg/dL; Glycohemoglobin A1C 5.6 % (4.5-6.2)
[2023-10-13 08:17] LABS: Alanine Aminotransferase 19 U/L (14-59); Albumin Globulin Ratio 1.2; Albumin Level 3.7 g/dL (3.4-5.0); Alkaline Phosphatase 121 U/L (46-116); Aspartate Amino Transferase 12 U/L (15-37); BUN Creatinine Ratio 20.2; Bilirubin Direct 0.1 mg/dL (0.0-0.2); Bilirubin Total 0.5 mg/dL (0.2-1.0); Calcium 9.1 mg/dL (8.5-10.1); Chloride 105 mmol/L (98-107); Chol HDL Ratio 2.5; Cholesterol 121 mg/dL (<=200); Estimated GFR (African America >60 (>=60); Estimated GFR (Non-African Ame >60 (>=60); Globulin 3.1 g/dL; Glucose 95 mg/dL (74-106); HDL Cholesterol 48 mg/dL (40-60); Magnesium 1.9 mg/dL (1.8-2.4); Phosphorus 3.4 mg/dL (2.6-4.7); Potassium 4.1 mmol/L (3.5-5.1); Sodium 142 mmol/L (136-145); Total Protein 6.8 g/dL (6.4-8.2); Triglycerides 90 mg/dL (<=150); Uric Acid 5.6 mg/dL (2.6-6.0)
[2023-10-13 08:45] LABS: Anion Gap 12.6; Carbon Dioxide 28.5 mmol/L (21.0-32.0)
[2023-10-15 06:09] LABS: Tacrolimus (FK506), Blood 4.2 ng/mL (2.0-20.0)
[2023-10-15 16:11] LABS: BKV DNA, Quant PCR, Plasma Negative (Negative)
== END 2023-10-13 06:41 | disposition home or self-care (01) ==
LOC: LAB 06:43
PROVIDERS: PCP Internal Medicine
DX: E13.9 Other specified diabetes mellitus without complications (principal); Z94.0 Kidney transplant status
CPT/HCPCS: 36415; 80053; 80061; 80197; 82248; 83036; 83735; 84100; 84550; 85025; 87799

== ENCOUNTER 2023-11-12 06:49 | Outpatient (OUT) | payer MEDICARE, SELFPAY ==
--- OUTSIDE RECORDS SUMMARY | 2023-11-12 06:54 | XMS_ITS | CCD ---
Author Organization [facility] Inform ion [facility] Care Team Providers Care Inspector Technician Name Role Phone UTE, DINKAR Unavailable Unavailable UTE, DINKAR Unavailable Unavailable CARROLL, RAMON Unavailable Unavailable [...] ROSALINDA Unavailable Unavailable CARROLL, RAMON Unavailable Unavailable ZEYNEPENVIRGIL MCGOWAN Unavailable Unavailable ZEYNEPENBERBreanne, VIRGIL Unavailable Unavailable CRISENBERY, VIRGIL Unavailable Unavailable CARROLL, RAMON Unavailable Unavailable Martha Guevara Unavailable Cathy Bella Unavailable JENIFFER, DR VIRGIL Palma Consulting Unavailable BERHANEERERadha, DR VIRGIL Palma Attending Unavailable CARROLL, DR DARBY Primary Care Unavailable NADERERadha, DR VIRGIL Palma Admitting Unavailable MARY, VITO Consulting Unavailable AWRD, JOSE F Townsend Consulting Unavailable ROWENA ., [...] Attending Unavailable MISC, DR OBRIEN Admitting Unavailable UTE, DR CONNORS Consulting Unavailable CARROLL, DR DARBY Primary Care Unavailable MISC, DR OBRIEN Attending Unavailable MISC, DR OBRIEN Admitting Unavailable MISC, DR OBRIEN Attending Unavailable MISC, DR OBRIEN Admitting Unavailable MISC, DR OBRIEN Consulting Unavailable CARROLL, DR DARBY Primary Care Unavailable UTE, DR CONNORS Consulting Unavailable UTE, DR CONNORS Attending Unavailable CARROLL, DR DARBY Primary Care Unavailable UTE, DR CONNORS Admitting Unavailable UTE, DR CONNORS Attending Unavailable CARROLL, DR DARBY Primary Care Unavailable UTE, DR CONNORS Admitting Unavailable UTE, DR CONNORS Consulting Unavailable MISC, DR OBRIEN [...] DR DARBY Primary Care Unavailable MISC, DR Attending Unavailable MISC, DR OBRIEN Admitting Unavailable MISC, DR OBRIEN Consulting Unavailable CARROLL, DR DARBY Primary Care Unavailable UTE, DR CONNORS Consulting Unavailable UTE, DR CONNORS Attending Unavailable CARROLL, DR DARBY Primary Care Unavailable UTE, DR CONNORS Admitting Unavailable MISC, DR OBRIEN Attending Unavailable MISC, DR OBRIEN Admitting Unavailable MISC, DR OBRIEN Consulting Unavailable CARROLL, DR DARBY Primary Care Unavailable MISC, DOCTOR Attending Unavailable MISC, DR OBRIEN Admitting Unavailable MISC, DR OBRIEN Consulting Unavailable DR RAMON CARROLL Primary Care Unavailable UTE, DR CONNORS Consulting Unavailable UTE, DR CONNORS Attending Unavailable UTE, DR CONNORS Admitting Unavailable UZMA, DR DARBY Primary Care Unavailable RAMON CARROLL Attending Unavailable ESTER PADILLA Attending Unavailable ESTER PADILLA Attending Unavailable ESTER PADILLA Attending Unavailable VIRGIL HAYNES Attending Unavailable VIRGIL HAYNES Attending Unavailable Medications Current Medications Medication Drug Class(es) Dates Sig (Normalized) Sig (Original) [id number] 200 actuat albuterol 0.09 mg/actuat metered dose [...] 1.5 mg/ml oral solution (1 source) Uncompetitive O-apqwpy-K-asparta te Receptor Antagonist, Sigma-1 Agonist Start: 03-27-2023 take 10 mL by mouth every eight hours [place] DM 7.5-7.5 MG/5ML 10 mL Orally every 8 hours for 5 days Feb, Active ergocalciferol 1.25 mg oral capsule (9 sources) Provitamin D2 Compound Start: 06-27-2011 take 1 capsule by mouth every week Vitamin D (Ergocalciferol) 64813 UNIT 1 capsule Orally Once a Week [...] August 30, 2023 12:00am swish and swallow [place] 9-Edw-Lcq-Fish Oil (Fish Oil) 1,000 mg (120 mg-180 mg) capsule (1 source) Start: 08-30-2023 take 1 capsule by mouth once daily [place] 7-Idy-Bey-Fish Oil (Fish Oil) 1,000 mg (120 mg-180 [...] Start: 12-25-2021 [facility] Tessalon Perles 100 [...] not specified as acute or chronic Episodic Diabetes mellitus without complication (2 sources) Other specified diabetes mellitus without complications; Translations: [Other specified diabetes mellitus without complications] Onset: 4 Chronic Diseases of mouth; excluding dental (1 source) [...] 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 Other aftercare (2 sources) Encounter for aftercare following other organ transplant; Translations: [Encounter for aftercare following other organ transplant] Onset: 4 Chronic Other diseases of kidney and ureters [...] 03-27-2017 Episodic Other aftercare (2 sources) 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 29on 09-23-2023 30 Addended by: DIANE LE on: 09/23/2023 03:27 PM Modules accepted: Orders [facility] Follow-Upon 09-23-2023 Follow-Up [id number] Tanika Grimm 1955 Provider Department Center 09/23/2023 124-VIRGIL HAYNES TXP None Family History Family Status - Relation Status Age at Mother Father Level of Service:52275 [place] OFFICE/OUTPATIENT ESTABLISHED MOD MDM 30 MIN Reason for Visit and Comments: Kidney Follow-up [] - Pt has been having sores in her mouth for the past month. [facility] No Panel InformationOrdered By: Lindsay Soria on 08-30-2023 Quick Strep (POC) [facility] Documentationon 08-26-2023 Documentation [id number] Tanika Grimm 1955 Date Provider Department Center 08/26/2023 750-RUTH, TYMARA TXP None No family history on file [facility] Documentationon 05-19-2023 Documentation [id number] Tanika Grimm 1955 Date Provider Department Center 05/19/2023 750-RUTH, TYMARA TXP None No family history on file [facility] COVID/FLU/RSV RT-PCRon 03-27 SARS-CoV-2 (COVID-19) RNA MURALI+probe Ql (Unsp spec) Negative [facility] Other COVID/FLU/RSV RT-PCR Negative [facility] Other Quick Strepon 03-27-2023 S. pyogenes Org specific cx Ql (Throat) Negative [facility] Other Quick Strep [facility] Other 29on 03-17-2023 29 Addended by: TOSHA LAGOS on: 03/17/2023 11:44 AM Modules accepted: Orders [facility] Follow-Upon 03-17-2023 Follow-Up [id number] Tanika Grimm 1955 Date Provider Department Center 03/17/2023 124-VIRGIL HAYNES TXP None No family history on file Level of Service:09999 [place] OFFICE/OUTPATIENT ESTABLISHED LOW MDM 20 MIN Reason for Visit and Comments: Kidney Follow-up [[id number]] - Patient would like to know if Virgil would prescribe depression medication. [facility] 36on 01-31-2023 36 Transplant Pharmacis [...] need for taper. The patient's verbalized understanding. Block Mason added medication to med list. The patient's stated patient will be getting a DEXA scan and recommended to not have calcium 3 days before. Reviewed medication list for any products containing calcium - no medications found. No other questions or concerns at this time. Normal [facility] Telephoneon 01-31-2023 Telephone [id number] Tanika Grimm 1955 Provider Department Center 01/31/2023 3915-JAH PAGE TXP None No family history on file Reason for Visit and Comments: Transplant Pharmacist - Drug Information [[id number]] [facility] BILIRUBIN CONJUGATED (DIRECT )on 05-15-2023 BILI, CONJUGATED 0.1 mg/dL Normal 0.0-0.2 [facility] Comment on above: Performed By: #### D DAVIDSON, MG, PHOS, CMP, LIPID, URIC #### [facility] [address] [address] [address] Sarmad Patino GLYCOHEMOGLOBIN A1Con 2022 ADA RECOMMENDATION SEE BELOW Normal [facility] Comment on above: Result Comment: ADA RECOMMENDED LIMIT 4.0 - 6.0 ADA THERAPEUTIC TARGET < 7.0 ACTION SUGGESTED > 7.0 Performed By: #### D DAVIDSON, MG, PHOS, CMP, LIPID, URIC #### [facility] [address] [address] [address] Sarmad Patino Glucose [Mass/Vol] 108 mg/dL Normal [facility] Comment on above: Performed By: #### D DAVIDSON, MG, PHOS, CMP, LIPID, URIC #### [facility] [address] [place] [address] Dr. Sarmad Patino HbA1c (Bld) [Mass fraction] 5.4 % Normal 4.5-6.2 [facility] Comment on above: Performed By: #### D DAVIDSON, MG, PHOS, CMP, LIPID, URIC #### [facility] [address] [place] [address] Dr. Sarmad Patino MAGNESIUMon 08-12-2022 Magnesium [Mass/Vol] 1.7 mg/dL Critically low 1.8-2.4 [facility] Comment on above: Performed By: #### D DAVIDSON, MG, PHOS, CMP, LIPID, URIC #### [facility] [address] [place] [address] Dr. Sarmad Patino PHOSPHORUSon 08-12-2022 Phosphate [Mass/Vol] 3.9 mg/dL Normal 2.6-4.7 [facility] Comment on above: Performed By: #### U MAXI, LIPID, MG, CMP, DBIL, PHOS #### [facility] [address] [place] [address] Dr. Sarmad Patino PROF 14(COMP METB)on 023 Albumin [Mass/Vol] 3.9 g/dL Normal 3.4-5.0 [facility] Comment on above: Performed By: #### D DAVIDSON, MG, PHOS, CMP, LIPID, URIC #### [facility] [address] [place] [address] Dr. Sarmad Patino Albumin/Globulin [Mass ratio] 1.2 {ratio} Normal [facility] Comment on above: Performed By: #### D DAVIDSON, MG, PHOS, CMP, LIPID, URIC #### [facility] [address] [place] [address] Dr. Sarmad Patino ALP [Catalytic activity/Vol] 126 U/L Critically high 46-116 [facility] Comment on above: Performed By: #### D DAVIDSON, MG, PHOS, CMP, LIPID, URIC #### [facility] [address] [place] [address] Dr. Sarmad Patino ALT [Catalytic activity/Vol] 18 U/L Normal 14-59 [facility] Comment on above: Performed By: #### D DAVIDSON, MG, PHOS, CMP, LIPID, URIC #### [facility] [address] [place] [address] Dr. Sarmad Patino Anion gap [Moles/Vol] 10.4 mmol/L Normal [facility] Comment on above: Performed By: #### D DAVIDSON, MG, PHOS, CMP, LIPID, URIC #### [facility] [address] [place] [address] Dr. Sarmad Patino AST [Catalytic activity/Vol] 14 U/L Critically low 15-37 [facility] Comment on above: Performed By: #### D DAVIDSON, MG, PHOS, CMP, LIPID, URIC #### [facility] [address] [place] [address] Dr. Sarmad Patino Bilirubin [Mass/Vol] 0.7 mg/dL Normal 0.2-1.0 [facility] Comment on above: Performed By: #### D DAVIDSON, MG, PHOS, CMP, LIPID, URIC #### [facility] [address] [place] [address] Dr. Sarmad Patino Calcium [Mass/Vol] 9.8 mg/dL Normal 8.5-10.1 [facility] Comment on above: Performed By: #### D DAVIDSON, MG, PHOS, CMP, LIPID, URIC #### [facility] [address] [address] [address] Sarmad Patino Chloride [Moles/Vol] 106 mmol/L Normal 98-107 [facility] Comment on above: Performed By: #### D DAVIDSON, MG, PHOS, CMP, LIPID, URIC #### [facility] [address] [address] [address] Sarmad Patino CO2 [Moles/Vol] 32.1 mmol/L Critically high 21.0-32.0 [facility] Comment on above: Performed By: #### D DAVIDSON, MG, PHOS, CMP, LIPID, URIC #### [facility] [address] [place] [address] Dr. Sarmad Patino Creatinine [Mass/Vol] 0.92 mg/dL Normal 0.55-1.02 [facility] Comment on above: Performed By: #### D DAVIDSON, MG, PHOS, CMP, LIPID, URIC #### [facility] [address] [address] [address] Sarmad Patino EGFR-AF PUERTO RICAN >60 Normal >=60 [facility] Comment on above: Performed By: #### D DAVIDSON, MG, PHOS, CMP, LIPID, URIC #### [facility] [address] [place] [address] Dr. Sarmad Patino EGFR-NON AF PUERTO RICAN >60 Normal >=60 [facility] Comment on above: Performed By: #### D DAVIDSON, MG, PHOS, CMP, LIPID, URIC #### [facility] [address] [address] [address] Sarmad Patino Globulin (S) [Mass/Vol] 3.3 g/dL Normal [facility] Comment on above: Performed By: #### D DAVIDSON, MG, PHOS, CMP, LIPID, URIC #### [facility] [address] [address] [address] Sarmad Patino Glucose [Mass/Vol] 102 mg/dL Normal 74-106 [facility] Comment on above: Performed By: #### D DAVIDSON, MG, PHOS, CMP, LIPID, URIC #### [facility] [address] [address] [address] Sarmad Patino Potassium [Moles/Vol] 4.5 mmol/L Normal 3.5-5.1 [facility] Comment on above: Performed By: #### D DAVIDSON, MG, PHOS, CMP, LIPID, URIC #### [facility] [address] [place] [address] Dr. Sarmad Patino Protein [Mass/Vol] 7.2 g/dL Normal 6.4-8.2 [facility] Comment on above: Performed By: #### D DAVIDSON, MG, PHOS, CMP, LIPID, URIC #### [facility] [address] [place] [address] Dr. Sarmad Patino Sodium [Moles/Vol] 144 mmol/L Normal 136-145 [facility] Comment on above: Performed By: #### D DAVIDSON, MG, PHOS, CMP, LIPID, URIC #### [facility] [address] [place] [address] Dr. Sarmad Patino Urea nitrogen [Mass/Vol] 20.0 mg/dL Critically high 7.0-18.0 [facility] Comment on above: Performed By: #### D DAVIDSON, MG, PHOS, CMP, LIPID, URIC #### [facility] [address] [place] [address] Dr. Sarmad Patino Urea nitrogen/Creatinine [Mass ratio] 21.7 mg/mg Normal [facility] Comment on above: Performed By: #### D DAVIDSON, MG, PHOS, CMP, LIPID, URIC #### [facility] [address] [place] [address] Dr. Sarmad Patino URIC ACID SERUMon 08-12-2022 Urate [Mass/Vol] 5.2 mg/dL Normal 2.6-6.0 [facility] Comment on above: Performed By: #### D DAVIDSON, MG, PHOS, CMP, LIPID, URIC #### [facility] [address] [place] [address] Dr. Sarmad Patino MG MAMM SCREEN 3D DAVIDSON CADon 07-23-2022 MG MAMM SCREEN 3D DAVIDSON CAD Patient: TANIKA GRIMM Exam Date: 07/23/2022 : 1955 Gender:F Ordering : DR RAMON CARROLL M.D. Admission #: [id number] Family : Order #: [id number] CLICK HERE TO VIEW EXAM RADIOLOGY REPORT [...] Treatments None Family Cancers None LOCATION: [facility] BREAST COMPOSITION: Extremely dense, which lowers the [...] M.D. on 07/23/2022 at 16:59 Normal [facility] FK506 (TACROLIMUS) WHOLE BLO ODon 07-10-2022 Tacrolimus (FK506), Blood 3.8 ng/mL Normal 2.0-20.0 [facility] Comment on above: Result Comment: Trou gh (immediately following transplant) 15.0 . Trough (steady state, 2 weeks or more after transplant): 3.0 - 8.0 . Performed by LC-MS/MS technology. Performed By: #### D DAVIDSON, MG, PHOS, CMP, LIPID, URIC #### [facility] [address] [place] [address] Dr. Sarmad Patino BILIRUBIN CONJUGATED (DIRECT )on 07-08-2022 BILI, CONJUGATED 0.1 mg/dL Normal 0.0-0.2 [facility] Comment on above: Performed By: #### U MAXI, LIPID, MG, CMP, DBIL, PHOS #### [facility] [address] [place] [address] Dr. Sarmad Patino GLYCOHEMOGLOBIN A1Con 2022 ADA RECOMMENDATION SEE BELOW Normal [facility] Comment on above: Result Comment: ADA RECOMMENDED LIMIT 4.0 - 6.0 ADA THERAPEUTIC TARGET < 7.0 ACTION SUGGESTED > 7.0 Performed By: #### D DAVIDSON, MG, PHOS, CMP, LIPID, URIC #### [facility] [address] [place] [address] Dr. Sarmad Patino Glucose [Mass/Vol] 105 mg/dL Normal [facility] Comment on above: Performed By: #### D DAVIDSON, MG, PHOS, CMP, LIPID, URIC #### [facility] [address] [place] [address] Dr. Sarmad Patino HbA1c (Bld) [Mass fraction] 5.3 % Normal 4.5-6.2 [facility] Comment on above: Performed By: #### D DAVIDSON, MG, PHOS, CMP, LIPID, URIC #### [facility] [address] [place] [address] Dr. Sarmad Patino MAGNESIUMon 07-08-2022 Magnesium [Mass/Vol] 1.8 mg/dL Normal 1.8-2.4 [facility] Comment on above: Performed By: #### U MAXI, LIPID, MG, CMP, DBIL, PHOS #### [facility] [address] [place] [address] Dr. Sarmad Patino PHOSPHORUSon 07-08-2022 Phosphate [Mass/Vol] 3.8 mg/dL Normal 2.6-4.7 [facility] Comment on above: Performed By: #### U MAXI, LIPID, MG, CMP, DBIL, PHOS #### [facility] [address] [place] [address] Dr. Sarmad Patino PROF 14(COMP METB)on 023 Albumin [Mass/Vol] 3.7 g/dL Normal 3.4-5.0 [facility] Comment on above: Performed By: #### U MAXI, LIPID, MG, CMP, DBIL, PHOS #### [facility] [address] [place] [address] Dr. Sarmad Patino Albumin/Globulin [Mass ratio] 1.1 {ratio} Normal [facility] Comment on above: Performed By: #### U MAXI, LIPID, MG, CMP, DBIL, PHOS #### [facility] [address] [place] [address] Dr. Sarmad Patino ALP [Catalytic activity/Vol] 124 U/L Critically high 46-116 [facility] Comment on above: Performed By: #### U MAXI, LIPID, MG, CMP, DBIL, PHOS #### [facility] [address] [place] [address] Dr. Sarmad Patino ALT [Catalytic activity/Vol] 20 U/L Normal 14-59 [facility] Comment on above: Performed By: #### U MAXI, LIPID, MG, CMP, DBIL, PHOS #### [facility] [address] [place] [address] Dr. Sarmad Patino Anion gap [Moles/Vol] 11.5 mmol/L Normal [facility] Comment on above: Performed By: #### U MAXI, LIPID, MG, CMP, DBIL, PHOS #### [facility] [address] [place] [address] Dr. Sarmad Patino AST [Catalytic activity/Vol] 12 U/L Critically low 15-37 [facility] Comment on above: Performed By: #### U MAXI, LIPID, MG, CMP, DBIL, PHOS #### [facility] [address] [place] [address] Dr. Sarmad Patino Bilirubin [Mass/Vol] 0.5 mg/dL Normal 0.2-1.0 [facility] Comment on above: Performed By: #### U MAXI, LIPID, MG, CMP, DBIL, PHOS #### [facility] [address] [place] [address] Dr. Sarmad Patino Calcium [Mass/Vol] 9.6 mg/dL Normal 8.5-10.1 [facility] Comment on above: Performed By: #### U MAXI, LIPID, MG, CMP, DBIL, PHOS #### [facility] [address] [address] [address] Sarmad Patino Chloride [Moles/Vol] 106 mmol/L Normal 98-107 [facility] Comment on above: Performed By: #### U MAXI, LIPID, MG, CMP, DBIL, PHOS #### [facility] [address] [address] [address] Sarmad Patino CO2 [Moles/Vol] 29.7 mmol/L Normal 21.0-32.0 [facility] Comment on above: Performed By: #### U MAXI, LIPID, MG, CMP, DBIL, PHOS #### [facility] [address] [address] [address] Sarmad Patino Creatinine [Mass/Vol] 0.77 mg/dL Normal 0.55-1.02 [facility] Comment on above: Performed By: #### U MAXI, LIPID, MG, CMP, DBIL, PHOS #### [facility] [address] [address] [address] Sarmad Patino EGFR-AF PUERTO RICAN >60 Normal >=60 [facility] Comment on above: Performed By: #### U MAXI, LIPID, MG, CMP, DBIL, PHOS #### [facility] [address] [address] [address] Sarmad Patino EGFR-NON AF PUERTO RICAN >60 Normal >=60 [facility] Comment on above: Performed By: #### U MAXI, LIPID, MG, CMP, DBIL, PHOS #### [facility] [address] [address] [address] Sarmad Patino Globulin (S) [Mass/Vol] 3.4 g/dL Normal [facility] Comment on above: Performed By: #### U MAXI, LIPID, MG, CMP, DBIL, PHOS #### [facility] [address] [address] [address] Sarmad Patino Glucose [Mass/Vol] 97 mg/dL Normal 74-106 [facility] Comment on above: Performed By: #### U MAXI, LIPID, MG, CMP, DBIL, PHOS #### [facility] [address] [address] [address] Sarmad Patino Potassium [Moles/Vol] 4.2 mmol/L Normal 3.5-5.1 [facility] Comment on above: Performed By: #### U MAXI, LIPID, MG, CMP, DBIL, PHOS #### [facility] [address] [address] [address] Sarmad Patino Protein [Mass/Vol] 7.1 g/dL Normal 6.4-8.2 [facility] Comment on above: Performed By: #### U MAXI, LIPID, MG, CMP, DBIL, PHOS #### [facility] [address] [place] [address] Dr. Sarmad Patino Sodium [Moles/Vol] 143 mmol/L Normal 136-145 [facility] Comment on above: Performed By: #### U MAXI, LIPID, MG, CMP, DBIL, PHOS #### [facility] [address] [address] [address] Sarmad Patino Urea nitrogen [Mass/Vol] 26.0 mg/dL Critically high 7.0-18.0 [facility] Comment on above: Performed By: #### U MAXI, LIPID, MG, CMP, DBIL, PHOS #### [facility] [address] [place] [address] Dr. Sarmad Patino Urea nitrogen/Creatinine [Mass ratio] 33.8 mg/mg Normal [facility] Comment on above: Performed By: #### U MAXI, LIPID, MG, CMP, DBIL, PHOS #### [facility] [address] [place] [address] Dr. Sarmad Patino URIC ACID SERUMon 07-08-2022 Urate [Mass/Vol] 4.7 mg/dL Normal 2.6-6.0 [facility] Comment on above: Performed By: #### U MAXI, LIPID, MG, CMP, DBIL, PHOS #### [facility] [address] [place] [address] Dr. Sarmad Patino FK506 (TACROLIMUS) WHOLE BLO ODon 06-13-2022 Tacrolimus (FK506), Blood 3.0 ng/mL Normal 2.0-20.0 [facility] Comment on above: Result Comment: Trou gh (immediately following transplant) 15.0 . Trough (steady state, 2 weeks or more after transplant): 3.0 - 8.0 . Performed by LC-MS/MS technology. Performed By: #### D DAVIDSON, MG, PHOS, CMP, LIPID, URIC #### [facility] [address] [place] [address] Dr. Sarmad Patino BK VIRUS PCR QUANTon 023 BKV DNA QUANT PCR PLASMA Negative Normal Negative [facility] Comment on above: Result Comment: No B K DNA detected. . The linear range of the assay is 22 - 100,000,000 IU/mL. Performed By: #### B KVIRUS #### [facility] [address] [place] [address] Dr. Sarmad Patino Log10 BKV DNA Plasma Normal [facility] Comment on above: Performed By: #### B KVIRUS #### [facility] [address] [place] [address] Dr. Sarmad Patino BILIRUBIN CONJUGATED (DIRECT )on 06-10-2022 BILI, CONJUGATED 0.1 mg/dL Normal 0.0-0.2 [facility] Comment on above: Performed By: #### U MAXI, LIPID, MG, CMP, DBIL, PHOS #### [facility] [address] [place] [address] Dr. Sarmad Patino GLYCOHEMOGLOBIN A1Con 2022 ADA RECOMMENDATION SEE BELOW Normal [facility] Comment on above: Result Comment: ADA RECOMMENDED LIMIT 4.0 - 6.0 ADA THERAPEUTIC TARGET < 7.0 ACTION SUGGESTED > 7.0 Performed By: #### D DAVIDSON, MG, PHOS, CMP, LIPID, URIC #### [facility] [address] [place] [address] Dr. Sarmad Patino Glucose [Mass/Vol] 114 mg/dL Normal [facility] Comment on above: Performed By: #### D DAVIDSON, MG, PHOS, CMP, LIPID, URIC #### [facility] [address] [address] [address] Sarmad Patino HbA1c (Bld) [Mass fraction] 5.6 % Normal 4.5-6.2 [facility] Comment on above: Performed By: #### D DAVIDSON, MG, PHOS, CMP, LIPID, URIC #### [facility] [address] [address] [address] Sarmad Patino MAGNESIUMon 06-10-2022 Magnesium [Mass/Vol] 1.6 mg/dL Critically low 1.8-2.4 [facility] Comment on above: Performed By: #### U MAXI, LIPID, MG, CMP, DBIL, PHOS #### [facility] [address] [address] [address] Sarmad Patino PROF 14(COMP METB)on 023 Albumin [Mass/Vol] 3.7 g/dL Normal 3.4-5.0 [facility] Comment on above: Performed By: #### U MAXI, LIPID, MG, CMP, DBIL, PHOS #### [facility] [address] [address] [address] Sarmad Patino Albumin/Globulin [Mass ratio] 1.1 {ratio} Normal [facility] Comment on above: Performed By: #### U MAXI, LIPID, MG, CMP, DBIL, PHOS #### [facility] [address] [address] [address] Sarmad Patino ALP [Catalytic activity/Vol] 142 U/L Critically high 46-116 [facility] Comment on above: Performed By: #### U MAXI, LIPID, MG, CMP, DBIL, PHOS #### [facility] [address] [address] [address] Sarmad Patino ALT [Catalytic activity/Vol] 29 U/L Normal 14-59 [facility] Comment on above: Performed By: #### U MAXI, LIPID, MG, CMP, DBIL, PHOS #### [facility] [address] [address] [address] Sarmad Patino Anion gap [Moles/Vol] 11.1 mmol/L Normal Th e [facility] Comment on above: Performed By: #### U MAXI, LIPID, MG, CMP, DBIL, PHOS #### [facility] [address] [place] [address] Dr. Sarmad Patino AST [Catalytic activity/Vol] 19 U/L Normal 15-37 [facility] Comment on above: Performed By: #### U MAXI, LIPID, MG, CMP, DBIL, PHOS #### [facility] [address] [place] [address] Dr. Sarmad Patino Bilirubin [Mass/Vol] 0.6 mg/dL Normal 0.2-1.0 [facility] Comment on above: Performed By: #### U MAXI, LIPID, MG, CMP, DBIL, PHOS #### [facility] [address] [place] [address] Dr. Sarmad Patino Calcium [Mass/Vol] 9.8 mg/dL Normal 8.5-10.1 [facility] Comment on above: Performed By: #### U MAXI, LIPID, MG, CMP, DBIL, PHOS #### [facility] [address] [place] [address] Dr. Sarmad Patino Chloride [Moles/Vol] 103 mmol/L Normal 98-107 [facility] Comment on above: Performed By: #### U MAXI, LIPID, MG, CMP, DBIL, PHOS #### [facility] [address] [place] [address] Dr. Sarmad Patino CO2 [Moles/Vol] 30.7 mmol/L Normal 21.0-32.0 [facility] Comment on above: Performed By: #### U MAXI, LIPID, MG, CMP, DBIL, PHOS #### [facility] [address] [place] [address] Dr. Sarmad Patino Creatinine [Mass/Vol] 0.79 mg/dL Normal 0.55-1.02 [facility] Comment on above: Performed By: #### U MAXI, LIPID, MG, CMP, DBIL, PHOS #### [facility] [address] [place] [address] Dr. Sarmad Patino EGFR-AF PUERTO RICAN >60 Normal >=60 [facility] Comment on above: Performed By: #### U MAXI, LIPID, MG, CMP, DBIL, PHOS #### [facility] [address] [address] [address] Sarmad Patino EGFR-NON AF PUERTO RICAN >60 Normal >=60 [facility] Comment on above: Performed By: #### U MAXI, LIPID, MG, CMP, DBIL, PHOS #### [facility] [address] [address] [address] Sarmad Patino Globulin (S) [Mass/Vol] 3.4 g/dL Normal [facility] Comment on above: Performed By: #### U MAXI, LIPID, MG, CMP, DBIL, PHOS #### [facility] [address] [place] [address] Dr. Sarmad Patino Glucose [Mass/Vol] 94 mg/dL Normal 74-106 [facility] Comment on above: Performed By: #### U MAXI, LIPID, MG, CMP, DBIL, PHOS #### [facility] [address] [address] [address] Sarmad Patino Potassium [Moles/Vol] 3.8 mmol/L Normal 3.5-5.1 [facility] Comment on above: Performed By: #### U MAXI, LIPID, MG, CMP, DBIL, PHOS #### [facility] [address] [address] [address] Sarmad Patino Protein [Mass/Vol] 7.1 g/dL Normal 6.4-8.2 [facility] Comment on above: Performed By: #### U MAXI, LIPID, MG, CMP, DBIL, PHOS #### [facility] [address] [address] [address] Sarmad Patino Sodium [Moles/Vol] 141 mmol/L Normal 136-145 [facility] Comment on above: Performed By: #### U MAXI, LIPID, MG, CMP, DBIL, PHOS #### [facility] [address] [address] [address] Sarmad Patino Urea nitrogen [Mass/Vol] 17.0 mg/dL Normal 7.0-18.0 [facility] Comment on above: Performed By: #### U MAXI, LIPID, MG, CMP, DBIL, PHOS #### [facility] [address] [place] [address] Dr. Sarmad Patino Urea nitrogen/Creatinine [Mass ratio] 21.5 mg/mg Normal [facility] Comment on above: Performed By: #### U MAXI, LIPID, MG, CMP, DBIL, PHOS #### [facility] [address] [place] [address] Dr. Sarmad Patino URIC ACID SERUMon 06-10-2022 Urate [Mass/Vol] 5.1 mg/dL Normal 2.6-6.0 [facility] Comment on above: Performed By: #### U MAXI, LIPID, MG, CMP, DBIL, PHOS #### [facility] [address] [place] [address] Dr. Sarmad Patino BK VIRUS PCR QUANTon 023 BKV DNA QUANT PCR PLASMA Negative Normal Negative [facility] Comment on above: Result Comment: No B K DNA detected. . The linear range of the assay is 22 - 100,000,000 IU/mL. Performed By: #### U MAXI, LIPID, MG, CMP, DBIL, PHOS #### [facility] [address] [place] [address] Dr. Sarmad Patino Log10 BKV DNA Plasma Normal [facility] Comment on above: Performed By: #### U MAXI, LIPID, MG, CMP, DBIL, PHOS #### [facility] [address] [place] [address] Dr. Sarmad Patino FK506 (TACROLIMUS) WHOLE BLO ODon 05-13-2022 Tacrolimus (FK506), Blood 4.1 ng/mL Normal 2.0-20.0 [facility] Comment on above: Result Comment: Trou gh (immediately following transplant) 15.0 . Trough (steady state, 2 weeks or more after transplant): 3.0 - 8.0 . Performed by LC-MS/MS technology. Performed By: #### U MAXI, LIPID, MG, CMP, DBIL, PHOS #### [facility] [address] [address] [address] Sarmad Patino BILIRUBIN CONJUGATED (DIRECT )on 05-10-2022 BILI, CONJUGATED 0.1 mg/dL Normal 0.0-0.2 [facility] Comment on above: Performed By: #### D DAVIDSON, MG, PHOS, CMP, LIPID, URIC #### [facility] [address] [address] [address] Sarmad Patino GLYCOHEMOGLOBIN A1Con 2022 ADA RECOMMENDATION SEE BELOW Normal [facility] Comment on above: Result Comment: ADA RECOMMENDED LIMIT 4.0 - 6.0 ADA THERAPEUTIC TARGET < 7.0 ACTION SUGGESTED > 7.0 Performed By: #### D DAVIDSON, MG, PHOS, CMP, LIPID, URIC #### [facility] [address] [address] [address] Sarmad Patino Glucose [Mass/Vol] 108 mg/dL Normal [facility] Comment on above: Performed By: #### D DAVIDSON, MG, PHOS, CMP, LIPID, URIC #### [facility] [address] [address] [address] Sarmad Patino HbA1c (Bld) [Mass fraction] 5.4 % Normal 4.5-6.2 [facility] Comment on above: Performed By: #### D DAVIDSON, MG, PHOS, CMP, LIPID, URIC #### [facility] [address] [address] [address] Sarmad Patino MAGNESIUMon 05-10-2022 Magnesium [Mass/Vol] 1.9 mg/dL Normal 1.8-2.4 [facility] Comment on above: Performed By: #### U MAXI, LIPID, MG, CMP, DBIL, PHOS #### [facility] [address] [address] [address] Sarmad Patino PROF 14(COMP METB)on 023 Albumin [Mass/Vol] 3.9 g/dL Normal 3.4-5.0 [facility] Comment on above: Performed By: #### D DAVIDSON, MG, PHOS, CMP, LIPID, URIC #### [facility] [address] [place] [address] Dr. Sarmad Patino Albumin/Globulin [Mass ratio] 1.2 {ratio} Normal [facility] Comment on above: Performed By: #### D DAVIDSON, MG, PHOS, CMP, LIPID, URIC #### [facility] [address] [address] [address] Sarmad Patino ALP [Catalytic activity/Vol] 114 U/L Normal 46-116 [facility] Comment on above: Performed By: #### D DAVIDSON, MG, PHOS, CMP, LIPID, URIC #### [facility] [address] [place] [address] Dr. Sarmad Patino ALT [Catalytic activity/Vol] 18 U/L Normal 14-59 [facility] Comment on above: Performed By: #### D DAVIDSON, MG, PHOS, CMP, LIPID, URIC #### [facility] [address] [place] [address] Dr. Sarmad Patino Anion gap [Moles/Vol] 15.9 mmol/L Normal [facility] Comment on above: Performed By: #### D DAVIDSON, MG, PHOS, CMP, LIPID, URIC #### [facility] [address] [place] [address] Dr. Sarmad Patino AST [Catalytic activity/Vol] 17 U/L Normal 15-37 [facility] Comment on above: Performed By: #### D DAVIDSON, MG, PHOS, CMP, LIPID, URIC #### [facility] [address] [place] [address] Dr. Sarmad Patino Bilirubin [Mass/Vol] 0.4 mg/dL Normal 0.2-1.0 [facility] Comment on above: Performed By: #### D DAVIDSON, MG, PHOS, CMP, LIPID, URIC #### [facility] [address] [place] [address] Dr. Sarmad Patino Calcium [Mass/Vol] 9.8 mg/dL Normal 8.5-10.1 [facility] Comment on above: Performed By: #### D DAVIDSON, MG, PHOS, CMP, LIPID, URIC #### [facility] [address] [address] [address] Sarmad Patino Chloride [Moles/Vol] 103 mmol/L Normal 98-107 [facility] Comment on above: Performed By: #### D DAVIDSON, MG, PHOS, CMP, LIPID, URIC #### [facility] [address] [place] [address] Dr. Sarmad Patino CO2 [Moles/Vol] 29.2 mmol/L Normal 21.0-32.0 [facility] Comment on above: Performed By: #### D DAVIDSON, MG, PHOS, CMP, LIPID, URIC #### [facility] [address] [place] [address] Dr. Sarmad Patino Creatinine [Mass/Vol] 0.74 mg/dL Normal 0.55-1.02 [facility] Comment on above: Performed By: #### D DAVIDSON, MG, PHOS, CMP, LIPID, URIC #### [facility] [address] [place] [address] Dr. Sarmad Patino EGFR-AF PUERTO RICAN >60 Normal >=60 [facility] Comment on above: Performed By: #### D ADVIDSON, MG, PHOS, CMP, LIPID, URIC #### [facility] [address] [place] [address] Dr. Sarmad Patino EGFR-NON AF PUERTO RICAN >60 Normal >=60 [facility] Comment on above: Performed By: #### D DAVIDSON, MG, PHOS, CMP, LIPID, URIC #### [facility] [address] [place] [address] Dr. Sarmad Patino Globulin (S) [Mass/Vol] 3.2 g/dL Normal [facility] Comment on above: Performed By: #### D DAVIDSON, MG, PHOS, CMP, LIPID, URIC #### [facility] [address] [place] [address] Dr. Sarmad Patino Glucose [Mass/Vol] 94 mg/dL Normal 74-106 [facility] Comment on above: Performed By: #### D DAVIDSON, MG, PHOS, CMP, LIPID, URIC #### [facility] [address] [place] [address] Dr. Sarmad Patino Potassium [Moles/Vol] 4.1 mmol/L Normal 3.5-5.1 [facility] Comment on above: Performed By: #### D DAVIDSON, MG, PHOS, CMP, LIPID, URIC #### [facility] [address] [place] [address] Dr. Sarmad Patino Protein [Mass/Vol] 7.1 g/dL Normal 6.4-8.2 [facility] Comment on above: Performed By: #### D DAVIDSON, MG, PHOS, CMP, LIPID, URIC #### [facility] [address] [address] [address] Sarmad Patino Sodium [Moles/Vol] 144 mmol/L Normal 136-145 [facility] Comment on above: Performed By: #### D DAVIDSON, MG, PHOS, CMP, LIPID, URIC #### [facility] [address] [place] [address] Dr. Sarmad Patino Urea nitrogen [Mass/Vol] 18.0 mg/dL Normal 7.0-18.0 [facility] Comment on above: Performed By: #### D DAVIDSON, MG, PHOS, CMP, LIPID, URIC #### [facility] [address] [place] [address] Dr. Sarmad Patino Urea nitrogen/Creatinine [Mass ratio] 24.3 mg/mg Normal [facility] Comment on above: Performed By: #### D DAVIDSON, MG, PHOS, CMP, LIPID, URIC #### [facility] [address] [place] [address] Dr. Sarmad Patino URIC ACID SERUMon 05-10-2022 Urate [Mass/Vol] 5.1 mg/dL Normal 2.6-6.0 [facility] Comment on above: Performed By: #### U MAXI, LIPID, MG, CMP, DBIL, PHOS #### [facility] [address] [place] [address] Dr. Sarmad Patino MYCOPHENOLIC ACIDon 04-17-19 Mycophenolic Acid 1.2 ug/mL Normal 1.0-3.5 [facility] Comment on above: Performed By: #### D DAVIDSON, MG, PHOS, CMP, LIPID, URIC #### [facility] [address] [place] [address] Dr. Sarmad Patino Mycophenolic Acid Glucuronide 37 ug/mL Normal 15-125 [facility] Comment on above: Result Comment: [facility] 's Reference Range: 35-100 mcg/mL. Performed By: #### D DAVIDSON, MG, PHOS, CMP, LIPID, URIC #### [facility] [address] [place] [address] Dr. Sarmad Patino FK506 (TACROLIMUS) WHOLE BLO ODon 04-10-2022 Tacrolimus (FK506), Blood 4.2 ng/mL Normal 2.0-20.0 [facility] Comment on above: Result Comment: Trou gh (immediately following transplant) 15.0 . Trough (steady state, 2 weeks or more after transplant): 3.0 - 8.0 . Performed by LC-MS/MS technology. Performed By: #### D DAVIDSON, MG, PHOS, CMP, LIPID, URIC #### [facility] [address] [place] [address] Dr. Sarmad Patino BILIRUBIN CONJUGATED (DIRECT )on 04-08-2022 BILI, CONJUGATED 0.1 mg/dL Normal 0.0-0.2 [facility] Comment on above: Performed By: #### U MAXI, LIPID, MG, CMP, DBIL, PHOS #### [facility] [address] [place] [address] Dr. Sarmad Patino CBC AUTO DIFFon 04-08-2022 BASO # 0.0 103/ul Normal 0.0-0.1 [facility] Comment on above: Performed By: #### D DAVIDSON, MG, PHOS, CMP, LIPID, URIC #### [facility] [address] [place] [address] Dr. Sarmad Patino Basophils/100 WBC (Bld) 0.3 % Normal 0.2-2.0 [facility] Comment on above: Performed By: #### D DAVIDSON, MG, PHOS, CMP, LIPID, URIC #### [facility] [address] [place] [address] Dr. Sarmad Patino EO # 0.1 103/ul Normal 0.0-0.7 [facility] Comment on above: Performed By: #### D DAVIDSON, MG, PHOS, CMP, LIPID, URIC #### [facility] [address] [place] [address] Dr. Sarmad Patino Eosinophils/100 WBC (Bld) 1.4 % Normal 0.9-7.0 [facility] Comment on above: Performed By: #### D DAVIDSON, MG, PHOS, CMP, LIPID, URIC #### [facility] [address] [place] [address] Dr. Sarmad Patino Erythrocyte distribution width (RBC) [Ratio] 15.8 % Critically high 11.0-15.0 [facility] Comment on above: Performed By: #### D DAVIDSON, MG, PHOS, CMP, LIPID, URIC #### [facility] [address] [place] [address] Dr. Sarmad Patino Hematocrit (Bld) [Volume fraction] 43.0 % Normal 36.0-48.0 [facility] Comment on above: Performed By: #### D DAVIDSON, MG, PHOS, CMP, LIPID, URIC #### [facility] [address] [place] [address] Dr. Sarmad Patino Hemoglobin (Bld) [Mass/Vol] 15.0 g/dL Normal 12.0-16.0 [facility] Comment on above: Performed By: #### D DAVIDSON, MG, PHOS, CMP, LIPID, URIC #### [facility] [address] [place] [address] Dr. Sarmad Patino IG # 0.01 10e3/ul Normal 0.00-0.03 [facility] Comment on above: Performed By: #### D DAVIDSON, MG, PHOS, CMP, LIPID, URIC #### [facility] [address] [place] [address] Dr. Sarmad Patino IG % 0.1 % Normal 0.0-0.5 [facility] Comment on above: Performed By: #### D DAVIDSON, MG, PHOS, CMP, LIPID, URIC #### [facility] [address] [place] [address] Dr. Sarmad Patino LYMPH # 1.3 103/ul Normal 1.2-3.8 [facility] Comment on above: Performed By: #### D DAVIDSON, MG, PHOS, CMP, LIPID, URIC #### [facility] [address] [place] [address] Dr. Sarmad Pation Lymphocytes/100 WBC (Bld) 18.3 % Critically low 20.5-60.0 [facility] Comment on above: Performed By: #### D DAVIDSON, MG, PHOS, CMP, LIPID, URIC #### [facility] [address] [place] [address] Dr. Sarmad Patino MANUAL DIFF REQ NO Normal [facility] Comment on above: Performed By: #### D DAVIDSON, MG, PHOS, CMP, LIPID, URIC #### [facility] [address] [place] [address] Dr. Sarmad Patino MCH (RBC) [Entitic mass] 29.7 pg Normal 26.7-34.0 [facility] Comment on above: Performed By: #### D DAVIDSON, MG, PHOS, CMP, LIPID, URIC #### [facility] [address] [place] [address] Dr. Sarmad Patino MCHC (RBC) [Mass/Vol] 34.9 g/dL Normal 29.9-35.2 [facility] Comment on above: Performed By: #### D DAVIDSON, MG, PHOS, CMP, LIPID, URIC #### [facility] [address] [place] [address] Dr. Sarmad Patino MCV (RBC) [Entitic vol] 85.1 fL Normal 81.0-99.0 [facility] Comment on above: Performed By: #### D DAVIDSON, MG, PHOS, CMP, LIPID, URIC #### [facility] [address] [place] [address] Dr. Sarmad Patino MONO # 0.7 103/ul Normal 0.3-0.8 [facility] Comment on above: Performed By: #### D DAVIDSON, MG, PHOS, CMP, LIPID, URIC #### [facility] [address] [place] [address] Dr. Sarmad Patino Monocytes/100 WBC (Bld) 9.8 % Normal 1.7-12.0 [facility] Comment on above: Performed By: #### D DAVIDSON, MG, PHOS, CMP, LIPID, URIC #### [facility] [address] [place] [address] Dr. Sarmad Patino NEUT # 5.1 103/ul Normal 1.4-6.5 [facility] Comment on above: Performed By: #### D DAVIDSON, MG, PHOS, CMP, LIPID, URIC #### [facility] [address] [place] [address] Dr. Sarmad Patino Neutrophils/100 WBC (Bld) 70.1 % Normal 43.0-75.0 [facility] Comment on above: Performed By: #### D DAVIDSON, MG, PHOS, CMP, LIPID, URIC #### [facility] [address] [place] [address] Dr. Sarmad Patino Platelet mean volume (Bld) [Entitic vol] 10.4 fL Normal 9.5-13.5 [facility] Comment on above: Performed By: #### D DAVIDSON, MG, PHOS, CMP, LIPID, URIC #### [facility] [address] [place] [address] Dr. Sarmad Patino PLT 229 103/ul Normal 150-450 [facility] Comment on above: Performed By: #### D DAVIDSON, MG, PHOS, CMP, LIPID, URIC #### [facility] [address] [place] [address] Dr. Sarmad Patino RBC 5.05 106/ul Normal 4.20-5.40 [facility] Comment on above: Performed By: #### D DAVIDSON, MG, PHOS, CMP, LIPID, URIC #### [facility] [address] [place] [address] Dr. Sarmad Patino WBC 7.2 103/ul Normal 4.0-11.0 [facility] Comment on above: Performed By: #### D DAVIDSON, MG, PHOS, CMP, LIPID, URIC #### [facility] [address] [place] [address] Dr. Sarmad Patino LIPID PROFILEon 04-08-2022 CHOL-HDL RATIO NORM SEE BELOW Normal [facility] Comment on above: Result Comment: 3.3 - 4.4 LOW RISK 4.4 - 7.1 AVERAGE RISK 7.1 - 11.0 MODERATE RISK >11.0 HIGH RISK Performed By: #### U MAXI, LIPID, MG, CMP, DBIL, PHOS #### [facility] [address] [address] [address] Sarmad Patino Cholesterol [Mass/Vol] 134 mg/dL Normal <=200 [facility] Comment on above: Performed By: #### U MAXI, LIPID, MG, CMP, DBIL, PHOS #### [facility] [address] [place] [address] Dr. Sarmad Patino Cholesterol in HDL [Mass/Vol] 55 mg/dL Normal 40-60 [facility] Comment on above: Performed By: #### U MAXI, LIPID, MG, CMP, DBIL, PHOS #### [facility] [address] [address] [address] Sarmad Patino Cholesterol in LDL [Mass/Vol] 56.6 mg/dL Normal [facility] Comment on above: Performed By: #### U MAXI, LIPID, MG, CMP, DBIL, PHOS #### [facility] [address] [place] [address] Dr. Sarmad Patino Cholesterol.total/Cho lesterol in HDL [Mass ratio] 2.4 {ratio} Normal [facility] Comment on above: Performed By: #### U MAXI, LIPID, MG, CMP, DBIL, PHOS #### [facility] [address] [address] [address] Sarmad Patino HDL NORMAL > or = 60 mg/dl - LO W CARDIOVASCULAR RISK <40 mg/dl - HIGH CARDIOVASCULAR RISK Normal [facility] Comment on above: Performed By: #### U MAXI, LIPID, MG, CMP, DBIL, PHOS #### [facility] [address] [place] [address] Dr. Sarmad Patino LDL CALC NORMAL SEE BELOW Normal [facility] Comment on above: Result Comment: <100 mg/dl OPTIMAL 100 - 129 mg/dl NEAR OR ABOVE OPTIMAL 130 - 159 mg/dl BORDERLINE HIGH 160 - 189 mg/dl HIGH >190 mg/dl VERY HIGH Performed By: #### U MAXI, LIPID, MG, CMP, DBIL, PHOS #### [facility] [address] [place] [address] Dr. Sarmad Patino Triglyceride [Mass/Vol] 112 mg/dL Normal <=150 [facility] Comment on above: Performed By: #### U MAXI, LIPID, MG, CMP, DBIL, PHOS #### [facility] [address] [address] [address] Sarmad Patino VLDL CALC 22.4 mg/dL Normal [facility] Comment on above: Performed By: #### U MAXI, LIPID, MG, CMP, DBIL, PHOS #### [facility] [address] [place] [address] Dr. Sarmad Patino MAGNESIUMon 04-08-2022 Magnesium [Mass/Vol] 1.8 mg/dL Normal 1.8-2.4 [facility] Comment on above: Performed By: #### U MAXI, LIPID, MG, CMP, DBIL, PHOS #### [facility] [address] [place] [address] Dr. Sarmad Patino PHOSPHORUSon 04-08-2022 Phosphate [Mass/Vol] 3.9 mg/dL Normal 2.6-4.7 [facility] Comment on above: Performed By: #### U MAXI, LIPID, MG, CMP, DBIL, PHOS #### [facility] [address] [place] [address] Dr. Sarmad Patino PROF 14(COMP METB)on 023 Albumin [Mass/Vol] 4.0 g/dL Normal 3.4-5.0 [facility] Comment on above: Performed By: #### U MAXI, LIPID, MG, CMP, DBIL, PHOS #### [facility] [address] [place] [address] Dr. Sarmad Patino Albumin/Globulin [Mass ratio] 1.3 {ratio} Normal [facility] Comment on above: Performed By: #### U MAXI, LIPID, MG, CMP, DBIL, PHOS #### [facility] [address] [address] [address] Sarmad Patino ALP [Catalytic activity/Vol] 108 U/L Normal 46-116 [facility] Comment on above: Performed By: #### U MAXI, LIPID, MG, CMP, DBIL, PHOS #### [facility] [address] [place] [address] Dr. Sarmad Ptaino ALT [Catalytic activity/Vol] 15 U/L Normal 14-59 [facility] Comment on above: Performed By: #### U MAXI, LIPID, MG, CMP, DBIL, PHOS #### [facility] [address] [place] [address] Dr. Sarmad Patino Anion gap [Moles/Vol] 14.3 mmol/L Normal [facility] Comment on above: Performed By: #### U MAXI, LIPID, MG, CMP, DBIL, PHOS #### [facility] [address] [place] [address] Dr. Sarmad Patino AST [Catalytic activity/Vol] 15 U/L Normal 15-37 [facility] Comment on above: Performed By: #### U MAXI, LIPID, MG, CMP, DBIL, PHOS #### [facility] [address] [place] [address] Dr. Sarmad Patino Bilirubin [Mass/Vol] 0.5 mg/dL Normal 0.2-1.0 [facility] Comment on above: Performed By: #### U MAXI, LIPID, MG, CMP, DBIL, PHOS #### [facility] [address] [place] [address] Dr. Sarmad Patino Calcium [Mass/Vol] 9.7 mg/dL Normal 8.5-10.1 [facility] Comment on above: Performed By: #### U MAXI, LIPID, MG, CMP, DBIL, PHOS #### [facility] [address] [place] [address] Dr. Sarmad Patino Chloride [Moles/Vol] 105 mmol/L Normal 98-107 [facility] Comment on above: Performed By: #### U MAXI, LIPID, MG, CMP, DBIL, PHOS #### [facility] [address] [place] [address] Dr. Sarmad Patino CO2 [Moles/Vol] 26.6 mmol/L Normal 21.0-32.0 [facility] Comment on above: Performed By: #### U MAXI, LIPID, MG, CMP, DBIL, PHOS #### [facility] [address] [place] [address] Dr. Sarmad Patino Creatinine [Mass/Vol] 0.80 mg/dL Normal 0.55-1.02 [facility] Comment on above: Performed By: #### U MAXI, LIPID, MG, CMP, DBIL, PHOS #### [facility] [address] [place] [address] Dr. Sarmad Patino EGFR-AF PUERTO RICAN >60 Normal >=60 [facility] Comment on above: Performed By: #### U MAXI, LIPID, MG, CMP, DBIL, PHOS #### [facility] [address] [place] [address] Dr. Sarmad Patino EGFR-NON AF PUERTO RICAN >60 Normal >=60 [facility] Comment on above: Performed By: #### U MAXI, LIPID, MG, CMP, DBIL, PHOS #### [facility] [address] [place] [address] Dr. Sarmad Patino Globulin (S) [Mass/Vol] 3.0 g/dL Normal [facility] Comment on above: Performed By: #### U MAXI, LIPID, MG, CMP, DBIL, PHOS #### [facility] [address] [place] [address] Dr. Sarmad Patino Glucose [Mass/Vol] 99 mg/dL Normal 74-106 [facility] Comment on above: Performed By: #### U MAXI, LIPID, MG, CMP, DBIL, PHOS #### [facility] [address] [place] [address] Dr. Sarmad Patino Potassium [Moles/Vol] 3.9 mmol/L Normal 3.5-5.1 [facility] Comment on above: Performed By: #### U MAXI, LIPID, MG, CMP, DBIL, PHOS #### [facility] [address] [place] [address] Dr. Sarmad Patino Protein [Mass/Vol] 7.0 g/dL Normal 6.4-8.2 [facility] Comment on above: Performed By: #### U MAXI, LIPID, MG, CMP, DBIL, PHOS #### [facility] [address] [place] [address] Dr. Sarmad Patino Sodium [Moles/Vol] 142 mmol/L Normal 136-145 [facility] Comment on above: Performed By: #### U MAXI, LIPID, MG, CMP, DBIL, PHOS #### [facility] [address] [place] [address] Dr. Sarmad Patino Urea nitrogen [Mass/Vol] 14.0 mg/dL Normal 7.0-18.0 [facility] Comment on above: Performed By: #### U MAXI, LIPID, MG, CMP, DBIL, PHOS #### [facility] [address] [place] [address] Dr. Sarmad Patino Urea nitrogen/Creatinine [Mass ratio] 17.5 mg/mg Normal [facility] Comment on above: Performed By: #### U MAXI, LIPID, MG, CMP, DBIL, PHOS #### [facility] [address] [place] [address] Dr. Sarmad Patino URIC ACID SERUMon 04-08-2022 Urate [Mass/Vol] 5.2 mg/dL Normal 2.6-6.0 [facility] Comment on above: Performed By: #### U MAXI, LIPID, MG, CMP, DBIL, PHOS #### [facility] [address] [place] [address] Dr. Sarmad Patino BK VIRUS PCR QUANTon 022 BKV DNA QUANT PCR PLASMA Negative Normal Negative [facility] Comment on above: Result Comment: No B K DNA detected. . The linear range of the assay is 22 - 100,000,000 IU/mL. Performed By: #### D DAVIDSON, MG, PHOS, CMP, LIPID, URIC #### [facility] [address] [place] [address] Dr. Sarmad Patino Log10 BKV DNA Plasma Normal [facility] Comment on above: Performed By: #### D DAVIDSON, MG, PHOS, CMP, LIPID, URIC #### [facility] [address] [place] [address] Dr. Sarmad Patino FK506 (TACROLIMUS) WHOLE BLO ODon 03-13-2022 Tacrolimus (FK506), Blood 5.0 ng/mL Normal 2.0-20.0 [facility] Comment on above: Result Comment: Trou gh (immediately following transplant) 15.0 . Trough (steady state, 2 weeks or more after transplant): 3.0 - 8.0 . Performed by LC-MS/MS technology. Performed By: #### D DAVIDSON, MG, PHOS, CMP, LIPID, URIC #### [facility] [address] [place] [address] Dr. Sarmad Patino GLYCOHEMOGLOBIN A1Con 2021 ADA RECOMMENDATION SEE BELOW Normal [facility] Comment on above: Result Comment: ADA RECOMMENDED LIMIT 4.0 - 6.0 ADA THERAPEUTIC TARGET < 7.0 ACTION SUGGESTED > 7.0 Performed By: #### D DAVIDSON, MG, PHOS, CMP, LIPID, URIC #### [facility] [address] [place] [address] Dr. Sarmad Pation Glucose [Mass/Vol] 111 mg/dL Normal [facility] Comment on above: Performed By: #### D DAVIDSON, MG, PHOS, CMP, LIPID, URIC #### [facility] [address] [address] [address] Sarmad Patino HbA1c (Bld) [Mass fraction] 5.5 % Normal 4.5-6.2 [facility] Comment on above: Performed By: #### D DAVIDSON, MG, PHOS, CMP, LIPID, URIC #### [facility] [address] [place] [address] Dr. Sarmad Patino LIVER PROFILEon 03-11-2022 Albumin [Mass/Vol] 3.7 g/dL Normal 3.4-5.0 [facility] Comment on above: Performed By: #### D DAVIDSON, MG, PHOS, CMP, LIPID, URIC #### [facility] [address] [place] [address] Dr. Sarmad Patino Albumin/Globulin [Mass ratio] 1.1 {ratio} Normal [facility] Comment on above: Performed By: #### D DAVIDSON, MG, PHOS, CMP, LIPID, URIC #### [facility] [address] [place] [address] Dr. Sarmad Patino ALP [Catalytic activity/Vol] 124 U/L Critically high 46-116 [facility] Comment on above: Performed By: #### D DAVIDSON, MG, PHOS, CMP, LIPID, URIC #### [facility] [address] [place] [address] Dr. Sarmad Patino ALT [Catalytic activity/Vol] 17 U/L Normal 14-59 [facility] Comment on above: Performed By: #### D DAVIDSON, MG, PHOS, CMP, LIPID, URIC #### [facility] [address] [place] [address] Dr. Sarmad Patino AST [Catalytic activity/Vol] 16 U/L Normal 15-37 [facility] Comment on above: Performed By: #### D DAVIDSON, MG, PHOS, CMP, LIPID, URIC #### [facility] [address] [place] [address] Dr. Sarmad Patino BILI, CONJUGATED 0.2 mg/dL Normal 0.0-0.2 [facility] Comment on above: Performed By: #### D DAVIDSON, MG, PHOS, CMP, LIPID, URIC #### [facility] [address] [place] [address] Dr. Sarmad Patino Bilirubin [Mass/Vol] 0.6 mg/dL Normal 0.2-1.0 [facility] Comment on above: Performed By: #### D DAVIDSON, MG, PHOS, CMP, LIPID, URIC #### [facility] [address] [place] [address] Dr. Sarmad Patino Globulin (S) [Mass/Vol] 3.4 g/dL Normal [facility] Comment on above: Performed By: #### D DAVIDSON, MG, PHOS, CMP, LIPID, URIC #### [facility] [address] [address] [address] Sarmad Patino Protein [Mass/Vol] 7.1 g/dL Normal 6.4-8.2 [facility] Comment on above: Performed By: #### D DAVIDSON, MG, PHOS, CMP, LIPID, URIC #### [facility] [address] [address] [address] Sarmad Patino MAGNESIUMon 03-11-2022 Magnesium [Mass/Vol] 1.6 mg/dL Critically low 1.8-2.4 [facility] Comment on above: Performed By: #### D DAVIDSON, MG, PHOS, CMP, LIPID, URIC #### [facility] [address] [place] [address] Dr. Sarmad Patino PHOSPHORUSon 03-11-2022 Phosphate [Mass/Vol] 3.5 mg/dL Normal 2.6-4.7 [facility] Comment on above: Performed By: #### D DAVIDSON, MG, PHOS, CMP, LIPID, URIC #### [facility] [address] [place] [address] Dr. Sarmad Patino URIC ACID SERUMon 03-11-2022 Urate [Mass/Vol] 5.3 mg/dL Normal 2.6-6.0 [facility] Comment on above: Performed By: #### D DAVIDSON, MG, PHOS, CMP, LIPID, URIC #### [facility] [address] [place] [address] Dr. Sarmad Patino MYCOPHENOLIC ACIDon 02-19-20 Mycophenolic Acid 1.5 ug/mL Normal 1.0-3.5 [facility] Comment on above: Performed By: #### D DAVIDSON, MG, PHOS, CMP, LIPID, URIC #### [facility] [address] [place] [address] Dr. Sarmad Patino Mycophenolic Acid Glucuronide 32 ug/mL Normal 15-125 [facility] Comment on above: Result Comment: [facility] 's Reference Range: 35-100 mcg/mL. Performed By: #### D DAVIDSON, MG, PHOS, CMP, LIPID, URIC #### [facility] [address] [place] [address] Dr. Sarmad Patino BK VIRUS PCR QUANTon 022 BKV DNA QUANT PCR PLASMA Negative Normal Negative [facility] Comment on above: Result Comment: No B K DNA detected. . The linear range of the assay is 22 - 100,000,000 IU/mL. Performed By: #### D DAVIDSON, MG, PHOS, CMP, LIPID, URIC #### [facility] [address] [place] [address] Dr. Sarmad Patino Log10 BKV DNA Plasma Normal [facility] Comment on above: Performed By: #### D DAVIDSON, MG, PHOS, CMP, LIPID, URIC #### [facility] [address] [place] [address] Dr. Sarmad Patino FK506 (TACROLIMUS) WHOLE BLO ODon 02-11-2022 Tacrolimus (FK506), Blood 4.4 ng/mL Normal 2.0-20.0 [facility] Comment on above: Result Comment: Trou gh (immediately following transplant) 15.0 . Trough (steady state, 2 weeks or more after transplant): 3.0 - 8.0 . Performed by LC-MS/MS technology. Performed By: #### U MAXI, LIPID, MG, CMP, DBIL, PHOS #### [facility] [address] [place] [address] Dr. Sarmad Patino BILIRUBIN CONJUGATED (DIRECT )on 02-08-2022 BILI, CONJUGATED 0.1 mg/dL Normal 0.0-0.2 [facility] Comment on above: Performed By: #### D DAVIDSON, MG, PHOS, CMP, LIPID, URIC #### [facility] [address] [place] [address] Dr. Sarmad Patino CBC AUTO DIFFon 02-08-2022 BASO # 0.0 103/ul Normal 0.0-0.1 [facility] Comment on above: Performed By: #### D DAVIDSON, MG, PHOS, CMP, LIPID, URIC #### [facility] [address] [place] [address] Dr. Sarmad Patino Basophils/100 WBC (Bld) 0.3 % Normal 0.2-2.0 [facility] Comment on above: Performed By: #### D DAVIDSON, MG, PHOS, CMP, LIPID, URIC #### [facility] [address] [place] [address] Dr. Sarmad Patino EO # 0.1 103/ul Normal 0.0-0.7 [facility] Comment on above: Performed By: #### D DAVIDSON, MG, PHOS, CMP, LIPID, URIC #### [facility] [address] [place] [address] Dr. Sarmad Patino Eosinophils/100 WBC (Bld) 1.0 % Normal 0.9-7.0 [facility] Comment on above: Performed By: #### D DAVIDSON, MG, PHOS, CMP, LIPID, URIC #### [facility] [address] [place] [address] Dr. Sarmad Patino Erythrocyte distribution width (RBC) [Ratio] 15.9 % Critically high 11.0-15.0 [facility] Comment on above: Performed By: #### D DAVIDSON, MG, PHOS, CMP, LIPID, URIC #### [facility] [address] [place] [address] Dr. Sarmad Patino Hematocrit (Bld) [Volume fraction] 42.2 % Normal 36.0-48.0 [facility] Comment on above: Performed By: #### D DAVIDSON, MG, PHOS, CMP, LIPID, URIC #### [facility] [address] [place] [address] Dr. Sarmad Patino Hemoglobin (Bld) [Mass/Vol] 13.8 g/dL Normal 12.0-16.0 [facility] Comment on above: Performed By: #### D DAVIDSON, MG, PHOS, CMP, LIPID, URIC #### [facility] [address] [place] [address] Dr. Sarmad Patino IG # 0.10 10e3/ul Critically high 0.00-0.03 [facility] Comment on above: Performed By: #### D DAVIDSON, MG, PHOS, CMP, LIPID, URIC #### [facility] [address] [place] [address] Dr. Sarmad Patino IG % 1.1 % Critically high 0.0-0.5 [facility] Comment on above: Performed By: #### D DAVIDSON, MG, PHOS, CMP, LIPID, URIC #### [facility] [address] [place] [address] Dr. Sarmad Patino LYMPH # 1.2 103/ul Normal 1.2-3.8 [facility] Comment on above: Performed By: #### D DAVIDSON, MG, PHOS, CMP, LIPID, URIC #### [facility] [address] [place] [address] Dr. Sarmad Patino Lymphocytes/100 WBC (Bld) 12.6 % Critically low 20.5-60.0 [facility] Comment on above: Performed By: #### D DAVIDSON, MG, PHOS, CMP, LIPID, URIC #### [facility] [address] [place] [address] Dr. Sarmad Patino MANUAL DIFF REQ NO Normal [facility] Comment on above: Performed By: #### D DAVIDSON, MG, PHOS, CMP, LIPID, URIC #### [facility] [address] [place] [address] Dr. Sarmad Patino MCH (RBC) [Entitic mass] 28.3 pg Normal 26.7-34.0 [facility] Comment on above: Performed By: #### D DAVIDSON, MG, PHOS, CMP, LIPID, URIC #### [facility] [address] [place] [address] Dr. Sarmad Patino MCHC (RBC) [Mass/Vol] 32.7 g/dL Normal 29.9-35.2 [facility] Comment on above: Performed By: #### D DAVIDSON, MG, PHOS, CMP, LIPID, URIC #### [facility] [address] [place] [address] Dr. Sarmad Patino MCV (RBC) [Entitic vol] 86.7 fL Normal 81.0-99.0 [facility] Comment on above: Performed By: #### D DAVIDSON, MG, PHOS, CMP, LIPID, URIC #### [facility] [address] [place] [address] Dr. Sarmad Patino MONO # 1.0 103/ul Critically high 0.3-0.8 [facility] Comment on above: Performed By: #### D DAVIDSON, MG, PHOS, CMP, LIPID, URIC #### [facility] [address] [place] [address] Dr. Sarmad Patino Monocytes/100 WBC (Bld) 10.7 % Normal 1.7-12.0 [facility] Comment on above: Performed By: #### D DAVIDSON, MG, PHOS, CMP, LIPID, URIC #### [facility] [address] [place] [address] Dr. Sarmad Patino NEUT # 6.9 103/ul Critically high 1.4-6.5 [facility] Comment on above: Performed By: #### D DAVIDSON, MG, PHOS, CMP, LIPID, URIC #### [facility] [address] [place] [address] Dr. Sarmad Patino Neutrophils/100 WBC (Bld) 74.3 % Normal 43.0-75.0 [facility] Comment on above: Performed By: #### D DAVIDSON, MG, PHOS, CMP, LIPID, URIC #### [facility] [address] [place] [address] Dr. Sarmad Patino Platelet mean volume (Bld) [Entitic vol] 11.1 fL Normal 9.5-13.5 [facility] Comment on above: Performed By: #### D DAVIDSON, MG, PHOS, CMP, LIPID, URIC #### [facility] [address] [place] [address] Dr. Sarmad Patino PLT 307 103/ul Normal 150-450 [facility] Comment on above: Performed By: #### D DAVIDSON, MG, PHOS, CMP, LIPID, URIC #### [facility] [address] [place] [address] Dr. Sarmad Patino RBC 4.87 106/ul Normal 4.20-5.40 [facility] Comment on above: Performed By: #### D DAVIDSON, MG, PHOS, CMP, LIPID, URIC #### [facility] [address] [place] [address] Dr. Sarmad Patino WBC 9.3 103/ul Normal 4.0-11.0 [facility] Comment on above: Performed By: #### D DAVIDSON, MG, PHOS, CMP, LIPID, URIC #### [facility] [address] [address] [address] Sarmad Patino GLYCOHEMOGLOBIN A1Con 2021 ADA RECOMMENDATION SEE BELOW Normal [facility] Comment on above: Result Comment: ADA RECOMMENDED LIMIT 4.0 - 6.0 ADA THERAPEUTIC TARGET < 7.0 ACTION SUGGESTED > 7.0 Performed By: #### D DAVIDSON, MG, PHOS, CMP, LIPID, URIC #### [facility] [address] [address] [address] Sarmad Patino Glucose [Mass/Vol] 134 mg/dL Normal [facility] Comment on above: Performed By: #### D DAVIDSON, MG, PHOS, CMP, LIPID, URIC #### [facility] [address] [address] [address] Sarmad Patino HbA1c (Bld) [Mass fraction] 6.3 % Critically high 4.5-6.2 [facility] Comment on above: Performed By: #### D DAVIDSON, MG, PHOS, CMP, LIPID, URIC #### [facility] [address] [address] [address] Sarmad Patino LIPID PROFILEon 02-08-2022 CHOL-HDL RATIO NORM SEE BELOW Normal [facility] Comment on above: Result Comment: 3.3 - 4.4 LOW RISK 4.4 - 7.1 AVERAGE RISK 7.1 - 11.0 MODERATE RISK >11.0 HIGH RISK Performed By: #### D DAVIDSON, MG, PHOS, CMP, LIPID, URIC #### [facility] [address] [address] [address] Sarmad Patino Cholesterol [Mass/Vol] 180 mg/dL Normal <=200 [facility] Comment on above: Performed By: #### D DAVIDSON, MG, PHOS, CMP, LIPID, URIC #### [facility] [address] [address] [address] Sarmad Patino Cholesterol in HDL [Mass/Vol] 58 mg/dL Normal 40-60 [facility] Comment on above: Performed By: #### D DAVIDSON, MG, PHOS, CMP, LIPID, URIC #### [facility] [address] [address] [address] Sarmad Patino Cholesterol in LDL [Mass/Vol] 86.6 mg/dL Normal [facility] Comment on above: Performed By: #### D DAVIDSON, MG, PHOS, CMP, LIPID, URIC #### [facility] [address] [address] [address] Sarmad Patino Cholesterol.total/Cho lesterol in HDL [Mass ratio] 3.1 {ratio} Normal [facility] Comment on above: Performed By: #### D DAVIDSON, MG, PHOS, CMP, LIPID, URIC #### [facility] [address] [address] [address] Sarmad Patino HDL NORMAL > or = 60 mg/dl - LO W CARDIOVASCULAR RISK <40 mg/dl - HIGH CARDIOVASCULAR RISK Normal [facility] Comment on above: Performed By: #### D DAVIDSON, MG, PHOS, CMP, LIPID, URIC #### [facility] [address] [address] [address] Sarmad Patino LDL CALC NORMAL SEE BELOW Normal [facility] Comment on above: Result Comment: <100 mg/dl OPTIMAL 100 - 129 mg/dl NEAR OR ABOVE OPTIMAL 130 - 159 mg/dl BORDERLINE HIGH 160 - 189 mg/dl HIGH >190 mg/dl VERY HIGH Performed By: #### D DAVIDSON, MG, PHOS, CMP, LIPID, URIC #### [facility] [address] [address] [address] Sarmad Patino Triglyceride [Mass/Vol] 177 mg/dL Critically high <=150 [facility] Comment on above: Performed By: #### D DAVIDSON, MG, PHOS, CMP, LIPID, URIC #### [facility] [address] [address] [address] Sarmad Patino VLDL CALC 35.4 mg/dL Normal [facility] Comment on above: Performed By: #### D DAVIDSON, MG, PHOS, CMP, LIPID, URIC #### [facility] [address] [place] [address] Dr. Sarmad Patino MAGNESIUMon 02-08-2022 Magnesium [Mass/Vol] 1.8 mg/dL Normal 1.8-2.4 [facility] Comment on above: Performed By: #### D DAVIDSON, MG, PHOS, CMP, LIPID, URIC #### [facility] [address] [place] [address] Dr. Sarmad Patino PHOSPHORUSon 02-08-2022 Phosphate [Mass/Vol] 3.3 mg/dL Normal 2.6-4.7 [facility] Comment on above: Performed By: #### D DAVIDSON, MG, PHOS, CMP, LIPID, URIC #### [facility] [address] [place] [address] Dr. Sarmad Patino PROF 14(COMP METB)on 022 Albumin [Mass/Vol] 3.8 g/dL Normal 3.4-5.0 [facility] Comment on above: Performed By: #### D DAVIDSON, MG, PHOS, CMP, LIPID, URIC #### [facility] [address] [place] [address] Dr. Sarmad Patino Albumin/Globulin [Mass ratio] 1.3 {ratio} Normal [facility] Comment on above: Performed By: #### D DAIVDSON, MG, PHOS, CMP, LIPID, URIC #### [facility] [address] [place] [address] Dr. Sarmad Patino ALP [Catalytic activity/Vol] 144 U/L Critically high 46-116 [facility] Comment on above: Performed By: #### D DAVIDSON, MG, PHOS, CMP, LIPID, URIC #### [facility] [address] [place] [address] Dr. Sarmad Patino ALT [Catalytic activity/Vol] 24 U/L Normal 14-59 [facility] Comment on above: Performed By: #### D DAVIDSON, MG, PHOS, CMP, LIPID, URIC #### [facility] [address] [place] [address] Dr. Sarmad Patino Anion gap [Moles/Vol] 13.7 mmol/L Normal [facility] Comment on above: Performed By: #### D DAVIDSON, MG, PHOS, CMP, LIPID, URIC #### [facility] [address] [address] [address] Sarmad Patino AST [Catalytic activity/Vol] 19 U/L Normal 15-37 [facility] Comment on above: Performed By: #### D DAVIDSON, MG, PHOS, CMP, LIPID, URIC #### [facility] [address] [address] [address] Sarmad Patino Bilirubin [Mass/Vol] 0.5 mg/dL Normal 0.2-1.0 [facility] Comment on above: Performed By: #### D DAVIDSON, MG, PHOS, CMP, LIPID, URIC #### [facility] [address] [place] [address] Dr. Sarmad Patino Calcium [Mass/Vol] 9.6 mg/dL Normal 8.5-10.1 [facility] Comment on above: Performed By: #### D DAVIDSON, MG, PHOS, CMP, LIPID, URIC #### [facility] [address] [place] [address] Dr. Sarmad Patino Chloride [Moles/Vol] 103 mmol/L Normal 98-107 [facility] Comment on above: Performed By: #### D DAVIDSON, MG, PHOS, CMP, LIPID, URIC #### [facility] [address] [place] [address] Dr. Sarmad Patino CO2 [Moles/Vol] 26.6 mmol/L Normal 21.0-32.0 [facility] Comment on above: Performed By: #### D DAVIDSON, MG, PHOS, CMP, LIPID, URIC #### [facility] [address] [place] [address] Dr. Sarmad Patino Creatinine [Mass/Vol] 0.75 mg/dL Normal 0.55-1.02 [facility] Comment on above: Performed By: #### D DAVIDSON, MG, PHOS, CMP, LIPID, URIC #### [facility] [address] [place] [address] Dr. Sarmad Patino EGFR-AF PUERTO RICAN >60 Normal >=60 [facility] Comment on above: Performed By: #### D DAVIDSON, MG, PHOS, CMP, LIPID, URIC #### [facility] [address] [address] [address] Sarmad Patino EGFR-NON AF PUERTO RICAN >60 Normal >=60 [facility] Comment on above: Performed By: #### D DAVIDSON, MG, PHOS, CMP, LIPID, URIC #### [facility] [address] [address] [address] Sarmad Patino Globulin (S) [Mass/Vol] 3.0 g/dL Normal [facility] Comment on above: Performed By: #### D DAVIDSON, MG, PHOS, CMP, LIPID, URIC #### [facility] [address] [place] [address] Dr. Sarmad Patino Glucose [Mass/Vol] 99 mg/dL Normal 74-106 [facility] Comment on above: Performed By: #### D DAVIDSON, MG, PHOS, CMP, LIPID, URIC #### [facility] [address] [place] [address] Dr. Sarmad Patino Potassium [Moles/Vol] 4.3 mmol/L Normal 3.5-5.1 [facility] Comment on above: Performed By: #### D DAVIDSON, MG, PHOS, CMP, LIPID, URIC #### [facility] [address] [place] [address] Dr. Sarmad Patino Protein [Mass/Vol] 6.8 g/dL Normal 6.4-8.2 [facility] Comment on above: Performed By: #### D DAVIDSON, MG, PHOS, CMP, LIPID, URIC #### [facility] [address] [address] [address] Sarmad Patino Sodium [Moles/Vol] 139 mmol/L Normal 136-145 [facility] Comment on above: Performed By: #### D DAVIDSON, MG, PHOS, CMP, LIPID, URIC #### [facility] [address] [address] [address] Sarmad Patino Urea nitrogen [Mass/Vol] 16.0 mg/dL Normal 7.0-18.0 [facility] Comment on above: Performed By: #### D DAVIDSON, MG, PHOS, CMP, LIPID, URIC #### [facility] [address] [address] [address] Sarmad Patino Urea nitrogen/Creatinine [Mass ratio] 21.3 mg/mg Normal [facility] Comment on above: Performed By: #### D DAVIDSON, MG, PHOS, CMP, LIPID, URIC #### [facility] [address] [address] [address] Sarmad Patino URIC ACID SERUMon 02-08-2022 Urate [Mass/Vol] 5.4 mg/dL Normal 2.6-6.0 [facility] Comment on above: Performed By: #### D DAVIDSON, MG, PHOS, CMP, LIPID, URIC #### [facility] [address] [place] [address] Dr. Sarmad Patino BK VIRUS PCR QUANTon 022 BKV DNA QUANT PCR PLASMA 27 IU/mL Normal Negative [facility] Comment on above: Result Comment: The linear range of the assay is 22 - 100,000,000 IU/mL. Performed By: #### D DAVIDSON, MG, PHOS, CMP, LIPID, URIC #### [facility] [address] [address] [address] Sarmad Patino Log10 BKV DNA Plasma 1.431 log10 IU/mL Normal [facility] Comment on above: Performed By: #### D DAVIDSON, MG, PHOS, CMP, LIPID, URIC #### [facility] [address] [place] [address] Dr. Sarmad Patino FK506 (TACROLIMUS) WHOLE BLO ODon 01-30-2022 Tacrolimus (FK506), Blood 6.5 ng/mL Normal 2.0-20.0 [facility] Comment on above: Result Comment: Trou gh (immediately following transplant) 15.0 . Trough (steady state, 2 weeks or more after transplant): 3.0 - 8.0 . Performed by LC-MS/MS technology. Performed By: #### D DAVIDSON, MG, PHOS, CMP, LIPID, URIC #### [facility] [address] [place] [address] Dr. Sarmad Patino RAPAMUNE(SIROLIMUS)on 2021 Rapamune(Sirolimus), whole blood 9.9 ng/mL Normal 3.0-20.0 [facility] Comment on above: Result Comment: Perf ormed by LC/MS-MS technology . This test was developed and its performance characteristics determined by [facility]. It has not been cleared or approved by the Food and Drug Administration. Performed By: #### D DAVIDSON, MG, PHOS, CMP, LIPID, URIC #### [facility] [address] [place] [address] Dr. Sarmad Patino BILIRUBIN CONJUGATED (DIRECT )on 01-28-2022 BILI, CONJUGATED 0.1 mg/dL Normal 0.0-0.2 [facility] Comment on above: Performed By: #### D DAVIDSON, MG, PHOS, CMP, LIPID, URIC #### [facility] [address] [place] [address] Dr. Sarmad Patino CBC AUTO DIFFon 01-28-2022 BASO # 0.0 103/ul Normal 0.0-0.1 [facility] Comment on above: Performed By: #### D DAVIDSON, MG, PHOS, CMP, LIPID, URIC #### [facility] [address] [place] [address] Dr. Sarmad Patino Basophils/100 WBC (Bld) 0.3 % Normal 0.2-2.0 [facility] Comment on above: Performed By: #### D DAVIDSON, MG, PHOS, CMP, LIPID, URIC #### [facility] [address] [place] [address] Dr. Sarmad Patino EO # 0.2 103/ul Normal 0.0-0.7 [facility] Comment on above: Performed By: #### D DAVIDSON, MG, PHOS, CMP, LIPID, URIC #### [facility] [address] [place] [address] Dr. Sarmad Patino Eosinophils/100 WBC (Bld) 3.1 % Normal 0.9-7.0 [facility] Comment on above: Performed By: #### D DAVIDSON, MG, PHOS, CMP, LIPID, URIC #### [facility] [address] [place] [address] Dr. Sarmad Patino Erythrocyte distribution width (RBC) [Ratio] 15.4 % Critically high 11.0-15.0 [facility] Comment on above: Performed By: #### D DAVIDSON, MG, PHOS, CMP, LIPID, URIC #### [facility] [address] [place] [address] Dr. Sarmad Patino Hematocrit (Bld) [Volume fraction] 42.6 % Normal 36.0-48.0 [facility] Comment on above: Performed By: #### D DAVIDSON, MG, PHOS, CMP, LIPID, URIC #### [facility] [address] [place] [address] Dr. Sarmad Patino Hemoglobin (Bld) [Mass/Vol] 14.0 g/dL Normal 12.0-16.0 [facility] Comment on above: Performed By: #### D DAVIDSON, MG, PHOS, CMP, LIPID, URIC #### [facility] [address] [place] [address] Dr. Sarmad Patino IG # 0.05 10e3/ul Critically high 0.00-0.03 [facility] Comment on above: Performed By: #### D DAVIDSON, MG, PHOS, CMP, LIPID, URIC #### [facility] [address] [place] [address] Dr. Sarmad Patino IG % 0.7 % Critically high 0.0-0.5 [facility] Comment on above: Performed By: #### D DAVIDSON, MG, PHOS, CMP, LIPID, URIC #### [facility] [address] [place] [address] Dr. Sarmad Patino LYMPH # 1.1 103/ul Critically low 1.2-3.8 [facility] Comment on above: Performed By: #### D DAVIDSON, MG, PHOS, CMP, LIPID, URIC #### [facility] [address] [place] [address] Dr. Sarmad Patino Lymphocytes/100 WBC (Bld) 15.8 % Critically low 20.5-60.0 [facility] Comment on above: Performed By: #### D DAVIDSON, MG, PHOS, CMP, LIPID, URIC #### [facility] [address] [place] [address] Dr. Sarmad Patino MANUAL DIFF REQ NO Normal [facility] Comment on above: Performed By: #### D DAVIDSON, MG, PHOS, CMP, LIPID, URIC #### [facility] [address] [place] [address] Dr. Sarmad Patino MCH (RBC) [Entitic mass] 28.3 pg Normal 26.7-34.0 [facility] Comment on above: Performed By: #### D DAVIDSON, MG, PHOS, CMP, LIPID, URIC #### [facility] [address] [place] [address] Dr. Sarmad Patino MCHC (RBC) [Mass/Vol] 32.9 g/dL Normal 29.9-35.2 [facility] Comment on above: Performed By: #### D DAVIDSON, MG, PHOS, CMP, LIPID, URIC #### [facility] [address] [place] [address] Dr. Sarmad Patino MCV (RBC) [Entitic vol] 86.2 fL Normal 81.0-99.0 [facility] Comment on above: Performed By: #### D DAVIDSON, MG, PHOS, CMP, LIPID, URIC #### [facility] [address] [place] [address] Dr. Sarmad Patino MONO # 0.8 103/ul Normal 0.3-0.8 [facility] Comment on above: Performed By: #### D DAVIDSON, MG, PHOS, CMP, LIPID, URIC #### [facility] [address] [place] [address] Dr. Sarmad Patino Monocytes/100 WBC (Bld) 11.0 % Normal 1.7-12.0 [facility] Comment on above: Performed By: #### D DAVIDSON, MG, PHOS, CMP, LIPID, URIC #### [facility] [address] [place] [address] Dr. Sarmad Patino NEUT # 4.8 103/ul Normal 1.4-6.5 [facility] Comment on above: Performed By: #### D DAVIDSON, MG, PHOS, CMP, LIPID, URIC #### [facility] [address] [address] [address] Sarmad Patino Neutrophils/100 WBC (Bld) 69.1 % Normal 43.0-75.0 [facility] Comment on above: Performed By: #### D DAVIDSON, MG, PHOS, CMP, LIPID, URIC #### [facility] [address] [address] [address] Sarmad Patino Platelet mean volume (Bld) [Entitic vol] 10.8 fL Normal 9.5-13.5 [facility] Comment on above: Performed By: #### D DAVIDSON, MG, PHOS, CMP, LIPID, URIC #### [facility] [address] [address] [address] Sarmad Patino PLT 208 103/ul Normal 150-450 [facility] Comment on above: Performed By: #### D DAVIDSON, MG, PHOS, CMP, LIPID, URIC #### [facility] [address] [address] [address] Sarmad Patino RBC 4.94 106/ul Normal 4.20-5.40 [facility] Comment on above: Performed By: #### D DAVIDSON, MG, PHOS, CMP, LIPID, URIC #### [facility] [address] [address] [address] Sarmad Patino WBC 7.0 103/ul Normal 4.0-11.0 [facility] Comment on above: Performed By: #### D DAVIDSON, MG, PHOS, CMP, LIPID, URIC #### [facility] [address] [place] [address] Dr. Sarmad Patino GLYCOHEMOGLOBIN A1Con 2021 ADA RECOMMENDATION SEE BELOW Normal [facility] Comment on above: Result Comment: ADA RECOMMENDED LIMIT 4.0 - 6.0 ADA THERAPEUTIC TARGET < 7.0 ACTION SUGGESTED > 7.0 Performed By: #### D DAVIDSON, MG, PHOS, CMP, LIPID, URIC #### [facility] [address] [place] [address] Dr. Sarmad Patino Glucose [Mass/Vol] 137 mg/dL Normal [facility] Comment on above: Performed By: #### D DAVIDSON, MG, PHOS, CMP, LIPID, URIC #### [facility] [address] [address] [address] Sarmad Patino HbA1c (Bld) [Mass fraction] 6.4 % Critically high 4.5-6.2 [facility] Comment on above: Performed By: #### D DAVIDSON, MG, PHOS, CMP, LIPID, URIC #### [facility] [address] [address] [address] Sarmad Patino LIPID PROFILEon 01-28-2022 CHOL-HDL RATIO NORM SEE BELOW Normal [facility] Comment on above: Result Comment: 3.3 - 4.4 LOW RISK 4.4 - 7.1 AVERAGE RISK 7.1 - 11.0 MODERATE RISK >11.0 HIGH RISK Performed By: #### D DAVIDSON, MG, PHOS, CMP, LIPID, URIC #### [facility] [address] [address] [address] Sarmad Patino Cholesterol [Mass/Vol] 209 mg/dL Critically high <=200 [facility] Comment on above: Performed By: #### D DAVIDSON, MG, PHOS, CMP, LIPID, URIC #### [facility] [address] [address] [address] Sarmad Patino Cholesterol in HDL [Mass/Vol] 59 mg/dL Normal 40-60 [facility] Comment on above: Performed By: #### D DAVIDSON, MG, PHOS, CMP, LIPID, URIC #### [facility] [address] [address] [address] Sarmad Patino Cholesterol in LDL [Mass/Vol] 100.4 mg/dL Normal [facility] Comment on above: Performed By: #### D DAVIDSON, MG, PHOS, CMP, LIPID, URIC #### [facility] [address] [place] [address] Dr. Sarmad Patino Cholesterol.total/Cho lesterol in HDL [Mass ratio] 3.5 {ratio} Normal [facility] Comment on above: Performed By: #### D DAVIDSON, MG, PHOS, CMP, LIPID, URIC #### [facility] [address] [address] [address] Sarmad Patino HDL NORMAL > or = 60 mg/dl - LO W CARDIOVASCULAR RISK <40 mg/dl - HIGH CARDIOVASCULAR RISK Normal [facility] Comment on above: Performed By: #### D DAVIDSON, MG, PHOS, CMP, LIPID, URIC #### [facility] [address] [address] [address] Sarmad Patino LDL CALC NORMAL SEE BELOW Normal [facility] Comment on above: Result Comment: <100 mg/dl OPTIMAL 100 - 129 mg/dl NEAR OR ABOVE OPTIMAL 130 - 159 mg/dl BORDERLINE HIGH 160 - 189 mg/dl HIGH >190 mg/dl VERY HIGH Performed By: #### D DAVIDSON, MG, PHOS, CMP, LIPID, URIC #### [facility] [address] [place] [address] Dr. Sarmad Patino Triglyceride [Mass/Vol] 248 mg/dL Critically high <=150 [facility] Comment on above: Performed By: #### D DAVIDSON, MG, PHOS, CMP, LIPID, URIC #### [facility] [address] [place] [address] Dr. Sarmad Patino VLDL CALC 49.6 mg/dL Normal [facility] Comment on above: Performed By: #### D DAVIDSON, MG, PHOS, CMP, LIPID, URIC #### [facility] [address] [place] [address] Dr. Sarmad Patino MAGNESIUMon 01-28-2022 Magnesium [Mass/Vol] 1.6 mg/dL Critically low 1.8-2.4 [facility] Comment on above: Performed By: #### D DAVIDSON, MG, PHOS, CMP, LIPID, URIC #### [facility] [address] [place] [address] Dr. Sarmad Patino PHOSPHORUSon 01-28-2022 Phosphate [Mass/Vol] 2.7 mg/dL Normal 2.6-4.7 [facility] Comment on above: Performed By: #### D DAVIDSON, MG, PHOS, CMP, LIPID, URIC #### [facility] [address] [place] [address] Dr. Sarmad Patino PROF 14(COMP METB)on 022 Albumin [Mass/Vol] 3.3 g/dL Critically low 3.4-5.0 [facility] Comment on above: Performed By: #### D DAVIDSON, MG, PHOS, CMP, LIPID, URIC #### [facility] [address] [place] [address] Dr. Sarmad Patino Albumin/Globulin [Mass ratio] 0.9 {ratio} Normal [facility] Comment on above: Performed By: #### D DAVIDSON, MG, PHOS, CMP, LIPID, URIC #### [facility] [address] [address] [address] Sarmad Patino ALP [Catalytic activity/Vol] 124 U/L Critically high 46-116 [facility] Comment on above: Performed By: #### D DAVIDSON, MG, PHOS, CMP, LIPID, URIC #### [facility] [address] [place] [address] Dr. Sarmad Patino ALT [Catalytic activity/Vol] 28 U/L Normal 14-59 [facility] Comment on above: Performed By: #### D DAVIDSON, MG, PHOS, CMP, LIPID, URIC #### [facility] [address] [address] [address] Sarmad Patino Anion gap [Moles/Vol] 12.0 mmol/L Normal [facility] Comment on above: Performed By: #### D DAVIDSON, MG, PHOS, CMP, LIPID, URIC #### [facility] [address] [address] [address] Sarmad Patino AST [Catalytic activity/Vol] 20 U/L Normal 15-37 [facility] Comment on above: Performed By: #### D DAVIDSON, MG, PHOS, CMP, LIPID, URIC #### [facility] [address] [place] [address] Dr. Sarmad Patino Bilirubin [Mass/Vol] 0.5 mg/dL Normal 0.2-1.0 [facility] Comment on above: Performed By: #### D DAVIDSON, MG, PHOS, CMP, LIPID, URIC #### [facility] [address] [place] [address] Dr. Sarmad Patino Calcium [Mass/Vol] 9.1 mg/dL Normal 8.5-10.1 [facility] Comment on above: Performed By: #### D DAVIDSON, MG, PHOS, CMP, LIPID, URIC #### [facility] [address] [address] [address] Sarmad Patino Chloride [Moles/Vol] 104 mmol/L Normal 98-107 [facility] Comment on above: Performed By: #### D DAVIDSON, MG, PHOS, CMP, LIPID, URIC #### [facility] [address] [address] [address] Sarmad Patino CO2 [Moles/Vol] 25.7 mmol/L Normal 21.0-32.0 [facility] Comment on above: Performed By: #### D DAVIDSON, MG, PHOS, CMP, LIPID, URIC #### [facility] [address] [address] [address] Sarmad Patino Creatinine [Mass/Vol] 0.77 mg/dL Normal 0.55-1.02 [facility] Comment on above: Performed By: #### D DAVIDSON, MG, PHOS, CMP, LIPID, URIC #### [facility] [address] [address] [address] Sarmad Patino EGFR-AF PUERTO RICAN >60 Normal >=60 [facility] Comment on above: Performed By: #### D DAVIDSON, MG, PHOS, CMP, LIPID, URIC #### [facility] [address] [address] [address] Sarmad Patino EGFR-NON AF PUERTO RICAN >60 Normal >=60 [facility] Comment on above: Performed By: #### D DAVIDSON, MG, PHOS, CMP, LIPID, URIC #### [facility] [address] [address] [address] Sarmad Patino Globulin (S) [Mass/Vol] 3.7 g/dL Normal [facility] Comment on above: Performed By: #### D DAVIDSON, MG, PHOS, CMP, LIPID, URIC #### [facility] [address] [address] [address] Sarmad Patino Glucose [Mass/Vol] 108 mg/dL Critically high 74-106 [facility] Comment on above: Performed By: #### D DAVIDSON, MG, PHOS, CMP, LIPID, URIC #### [facility] [address] [place] [address] Dr. Sarmad Patino Potassium [Moles/Vol] 3.7 mmol/L Normal 3.5-5.1 [facility] Comment on above: Performed By: #### D DAVIDSON, MG, PHOS, CMP, LIPID, URIC #### [facility] [address] [place] [address] Dr. Sarmad Patino Protein [Mass/Vol] 7.0 g/dL Normal 6.4-8.2 [facility] Comment on above: Performed By: #### D DAVIDSON, MG, PHOS, CMP, LIPID, URIC #### [facility] [address] [place] [address] Dr. Sarmad Patino Sodium [Moles/Vol] 138 mmol/L Normal 136-145 [facility] Comment on above: Performed By: #### D DAVIDSON, MG, PHOS, CMP, LIPID, URIC #### [facility] [address] [place] [address] Dr. Sarmad Patino Urea nitrogen [Mass/Vol] 15.0 mg/dL Normal 7.0-18.0 [facility] Comment on above: Performed By: #### D DAVIDSON, MG, PHOS, CMP, LIPID, URIC #### [facility] [address] [place] [address] Dr. Sarmad Patino Urea nitrogen/Creatinine [Mass ratio] 19.5 mg/mg Normal [facility] Comment on above: Performed By: #### D DAVIDSON, MG, PHOS, CMP, LIPID, URIC #### [facility] [address] [place] [address] Dr. Sarmad Patino URIC ACID SERUMon 01-28-2022 Urate [Mass/Vol] 4.3 mg/dL Normal 2.6-6.0 [facility] Comment on above: Performed By: #### D DAVIDSON, MG, PHOS, CMP, LIPID, URIC #### [facility] [address] [address] [address] Sarmad Patino Quick Strepon 01-12-2022 S. pyogenes Org specific cx Ql (Throat) Negative [employer] Other Quick Strep [facility] Other XR CHEST 1 Von 01-07-2022 XR [...] BRITTON BERNARD Date: 2022-01-07 15:00 Normal The [facility] CBC W MANUAL DIFFon 01-04-20 22 ATYPICAL LYMPH # 1.40 103/ul Normal [facility] Comment on above: Performed By: #### D DAVIDSON, MG, PHOS, CMP, LIPID, URIC #### [facility] [address] [address] [address] Sarmad Patino ATYPICAL LYMPH % 10 % Normal [facility] Comment on above: Performed By: #### D DAVIDSON, MG, PHOS, CMP, LIPID, URIC #### [facility] [address] [address] [address] Sarmad Patino BAND # 0.6 103/ul Critically high 0.0-0.3 [facility] Comment on above: Performed By: #### D DAVIDSON, MG, PHOS, CMP, LIPID, URIC #### [facility] [address] [address] [address] Sarmad Patino BAND % 4 % Normal 0-5 [facility] Comment on above: Performed By: #### D DAVIDSON, MG, PHOS, CMP, LIPID, URIC #### [facility] [address] [address] [address] Sarmad Patino BASOM # 0.00 103/ul Normal 0.00-0.10 [facility] Comment on above: Performed By: #### D DAVIDSON, MG, PHOS, CMP, LIPID, URIC #### [facility] [address] [address] [address] Sarmad Patino BASOM % 0.0 % Critically low 0.2-2.0 [facility] Comment on above: Performed By: #### D DAVIDSON, MG, PHOS, CMP, LIPID, URIC #### [facility] [address] [place] [address] Dr. Sarmad Patino BLAST # Normal [facility] Comment on above: Performed By: #### D DAVIDSON, MG, PHOS, CMP, LIPID, URIC #### [facility] [address] [place] [address] Dr. Sarmad Patino BLAST % Normal [facility] Comment on above: Performed By: #### D DAVIDSON, MG, PHOS, CMP, LIPID, URIC #### [facility] [address] [place] [address] Dr. Sarmad Patino CORRECTED WBC Normal 4.0-11.0 [facility] Comment on above: Performed By: #### D DAVIDSON, MG, PHOS, CMP, LIPID, URIC #### [facility] [address] [place] [address] Dr. Sarmad Patino EOS # 0.14 103/ul Normal 0.00-0.70 [facility] Comment on above: Performed By: #### D DAVIDSON, MG, PHOS, CMP, LIPID, URIC #### [facility] [address] [place] [address] Dr. Sarmad Patino EOS% 1.0 % Normal 0.9-7.0 [facility] Comment on above: Performed By: #### D DAVIDSON, MG, PHOS, CMP, LIPID, URIC #### [facility] [address] [place] [address] Dr. Sarmad Patino HCT 42.8 % Normal 36.0-48.0 [facility] Comment on above: Performed By: #### D DAVIDSON, MG, PHOS, CMP, LIPID, URIC #### [facility] [address] [place] [address] Dr. Sarmad Patino HGB 14.2 g/dl Normal 12.0-16.0 [facility] Comment on above: Performed By: #### D DAVIDSON, MG, PHOS, CMP, LIPID, URIC #### [facility] [address] [place] [address] Dr. Sarmad Patino LYMPHM # 0.00 103/ul Critically low 1.20-3.80 [facility] Comment on above: Performed By: #### D DAVIDSON, MG, PHOS, CMP, LIPID, URIC #### [facility] [address] [place] [address] Dr. Sarmad Patino LYMPHM% 0.0 % Critically low 20.5-60.0 [facility] Comment on above: Performed By: #### D DAVIDSON, MG, PHOS, CMP, LIPID, URIC #### [facility] [address] [place] [address] Dr. Sarmad Patino MCH 28.8 pg Normal 26.7-34.0 [facility] Comment on above: Performed By: #### D DAVIDSON, MG, PHOS, CMP, LIPID, URIC #### [facility] [address] [place] [address] Dr. Sarmad Patino MCHC 33.2 g/dl Normal 29.9-35.2 [facility] Comment on above: Performed By: #### D DAVIDSON, MG, PHOS, CMP, LIPID, URIC #### [facility] [address] [place] [address] Dr. Sarmad Patino MCV 86.8 fL Normal 81.0-99.0 [facility] Comment on above: Performed By: #### D DAVIDSON, MG, PHOS, CMP, LIPID, URIC #### [facility] [address] [place] [address] Dr. Sarmad Patino METAMYELOCYTE # Normal [facility] Comment on above: Performed By: #### D DAVIDSON, MG, PHOS, CMP, LIPID, URIC #### [facility] [address] [address] [address] Sarmad Patino METAMYELOCYTE % Normal [facility] Comment on above: Performed By: #### D DAVIDSON, MG, PHOS, CMP, LIPID, URIC #### [facility] [address] [address] [address] Sarmad Patino MONOM# 0.84 103/ul Critically high 0.30-0.80 [facility] Comment on above: Performed By: #### D DAVIDSON, MG, PHOS, CMP, LIPID, URIC #### [facility] [address] [address] [address] Sarmad Patino MONOM% 6.0 % Normal 1.7-12.0 [facility] Comment on above: Performed By: #### D DAVIDSON, MG, PHOS, CMP, LIPID, URIC #### [facility] [address] [address] [address] Sarmad Patino MPV 11.5 fL Normal 9.5-13.5 [facility] Comment on above: Performed By: #### D DAVIDSON, MG, PHOS, CMP, LIPID, URIC #### [facility] [address] [address] [address] Sarmad Patino MYELOCYTE # 0.3 103/ul Normal [facility] Comment on above: Performed By: #### D DAVIDSON, MG, PHOS, CMP, LIPID, URIC #### [facility] [address] [address] [address] Sarmad Patino MYELOCYTE % 2 % Normal [facility] Comment on above: Performed By: #### D DAVIDSON, MG, PHOS, CMP, LIPID, URIC #### [facility] [address] [address] [address] Sarmad Patino NRBC Normal [facility] Comment on above: Performed By: #### D DAVIDSON, MG, PHOS, CMP, LIPID, URIC #### [facility] [address] [address] [address] Sarmad Patino PLT 180 103/ul Normal 150-450 [facility] Comment on above: Performed By: #### D DAVIDSON, MG, PHOS, CMP, LIPID, URIC #### [facility] [address] [address] [address] Sarmad Patino RBC 4.93 106/ul Normal 4.20-5.40 [facility] Comment on above: Performed By: #### D DAVIDSON, MG, PHOS, CMP, LIPID, URIC #### [facility] [address] [address] [address] Sarmad Patino RDW 13.9 % Normal 11.0-15.0 [facility] Comment on above: Performed By: #### D DAVIDSON, MG, PHOS, CMP, LIPID, URIC #### [facility] [address] [address] [address] Sarmad Patino SEG # 10.78 103/ul Critically high 1.40-6.50 [facility] Comment on above: Performed By: #### D DAVIDSON, MG, PHOS, CMP, LIPID, URIC #### [facility] [address] [place] [address] Dr. Sarmad Patino SEG % 77.0 % Critically high 43.0-75.0 [facility] Comment on above: Performed By: #### D DAVIDSON, MG, PHOS, CMP, LIPID, URIC #### [facility] [address] [address] [address] Sarmad Patino WBC 14.0 103/ul Critically high 4.0-11.0 [facility] Comment on above: Performed By: #### D DAVIDSON, MG, PHOS, CMP, LIPID, URIC #### [facility] [address] [place] [address] NECK [address] W [...] middle ear cavities clear. Skull base intact. 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 Parotid glands normal. Submandibular [...] F HOPPER Date: 2022-01-03 10:40 Normal [facility]on SARS-CoV-2 (COVID-19) RNA MURALI+probe Ql (Unsp spec) Detected Critically abnormal NOT DETECTED [facility] Comment on above: Result Comment: This test is not yet approved or cleared by the [place] FDA. When there are no FDA-approved or cleared tests available, and other criteria are met, FDA can make tests available under an emergency access mechanism called an Emergency Use Authorization (EUA). The EUA for this test is supported by the [place] of Health and Human Service's declaration that [...] DAVIDSON, MG, PHOS, CMP, LIPID, URIC #### [facility] [address] [place] [address] Dr. Sarmad Patino GROUP A STREP CULTUREon S. pyogenes Ag Ql (Unsp spec) Culture Observations: Negative for Group A Streptococcus Normal [facility] Comment on above: Performed By: #### U MAXI, LIPID, MG, CMP, DBIL, PHOS #### [facility] [address] [place] [address] Dr. Sarmad Patino INFLUENZA A AND B AGon 01-03 INFLUENZA A AG Negative Normal NEGATIVE SEE COMMENT [facility] Comment on above: Performed By: #### D DAVIDSON, MG, PHOS, CMP, LIPID, URIC #### [facility] [address] [place] [address] Dr. Sarmad Patino INFLUENZA B AG Negative Normal NEGATIVE SEE COMMENT [facility] Comment on above: Performed By: #### D DAVIDSON, MG, PHOS, CMP, LIPID, URIC #### [facility] [address] [place] [address] Dr. Sarmad Patino INTERNAL CONTROLS Within Normal Limits Normal Wi thin Normal Limits [facility] Comment on above: Performed By: #### D DAVIDSON, MG, PHOS, CMP, LIPID, URIC #### [facility] [address] [place] [address] Dr. Sarmad Patino PROF 14(COMP METB)on 022 Albumin [Mass/Vol] 2.5 g/dL Critically low 3.4-5.0 [facility] Comment on above: Performed By: #### U MAXI, LIPID, MG, CMP, DBIL, PHOS #### [facility] [address] [place] [address] Dr. Sarmad Patino Albumin/Globulin [Mass ratio] 0.5 {ratio} Normal [facility] Comment on above: Performed By: #### U MAXI, LIPID, MG, CMP, DBIL, PHOS #### [facility] [address] [place] [address] Dr. Sarmad Patino ALP [Catalytic activity/Vol] 185 U/L Critically high 46-116 [facility] Comment on above: Performed By: #### U MAXI, LIPID, MG, CMP, DBIL, PHOS #### [facility] [address] [address] [address] Sarmad Patino ALT [Catalytic activity/Vol] 108 U/L Critically high 14-59 [facility] Comment on above: Performed By: #### U MAXI, LIPID, MG, CMP, DBIL, PHOS #### [facility] [address] [place] [address] Dr. Sarmad Patino Anion gap [Moles/Vol] 8.3 mmol/L Normal [facility] Comment on above: Performed By: #### U MAXI, LIPID, MG, CMP, DBIL, PHOS #### [facility] [address] [address] [address] Sarmad Patino AST [Catalytic activity/Vol] 59 U/L Critically high 15-37 [facility] Comment on above: Performed By: #### U MAXI, LIPID, MG, CMP, DBIL, PHOS #### [facility] [address] [place] [address] Dr. Sarmad Patino Bilirubin [Mass/Vol] 0.6 mg/dL Normal 0.2-1.0 [facility] Comment on above: Performed By: #### U MAXI, LIPID, MG, CMP, DBIL, PHOS #### [facility] [address] [address] [address] Sarmad Patino Calcium [Mass/Vol] 9.0 mg/dL Normal 8.5-10.1 [facility] Comment on above: Performed By: #### U MAXI, LIPID, MG, CMP, DBIL, PHOS #### [facility] [address] [place] [address] Dr. Sarmad Patino Chloride [Moles/Vol] 100 mmol/L Normal 98-107 [facility] Comment on above: Performed By: #### U MAXI, LIPID, MG, CMP, DBIL, PHOS #### [facility] [address] [place] [address] Dr. Sarmad Patino CO2 [Moles/Vol] 29.0 mmol/L Normal 21.0-32.0 [facility] Comment on above: Performed By: #### U MAXI, LIPID, MG, CMP, DBIL, PHOS #### [facility] [address] [address] [address] Sarmad Patino Creatinine [Mass/Vol] 1.05 mg/dL Critically high 0.55-1.02 [facility] Comment on above: Performed By: #### U MAXI, LIPID, MG, CMP, DBIL, PHOS #### [facility] [address] [address] [address] Sarmad Patino EGFR-AF PUERTO RICAN >60 Normal >=60 [facility] Comment on above: Performed By: #### U MAXI, LIPID, MG, CMP, DBIL, PHOS #### [facility] [address] [place] [address] Dr. Sarmad Patino EGFR-NON AF PUERTO RICAN 53 mL/min/1.73m2 Critically low >=60 [facility] Comment on above: Performed By: #### U MAXI, LIPID, MG, CMP, DBIL, PHOS #### [facility] [address] [place] [address] Dr. Sarmad Patino Globulin (S) [Mass/Vol] 4.6 g/dL Normal [facility] Comment on above: Performed By: #### U MAXI, LIPID, MG, CMP, DBIL, PHOS #### [facility] [address] [place] [address] Dr. Sarmad Patino Glucose [Mass/Vol] 154 mg/dL Critically high 74-106 T [facility] Comment on above: Performed By: #### U MAXI, LIPID, MG, CMP, DBIL, PHOS #### [facility] [address] [place] [address] Dr. Sarmad Patino Potassium [Moles/Vol] 3.3 mmol/L Critically low 3.5-5.1 [facility] Comment on above: Performed By: #### U MAXI, LIPID, MG, CMP, DBIL, PHOS #### [facility] [address] [place] [address] Dr. Sarmad Patino Protein [Mass/Vol] 7.1 g/dL Normal 6.4-8.2 [facility] Comment on above: Performed By: #### U MAXI, LIPID, MG, CMP, DBIL, PHOS #### [facility] [address] [address] [address] Sarmad Patino Sodium [Moles/Vol] 134 mmol/L Critically low 136-145 Th e [facility] Comment on above: Performed By: #### U MAXI, LIPID, MG, CMP, DBIL, PHOS #### [facility] [address] [address] [address] Sarmad Patino Urea nitrogen [Mass/Vol] 24.0 mg/dL Critically high 7.0-18.0 [facility] Comment on above: Performed By: #### U MAXI, LIPID, MG, CMP, DBIL, PHOS #### [facility] [address] [address] [address] Sarmad Patino Urea nitrogen/Creatinine [Mass ratio] 22.9 mg/mg Normal [facility] Comment on above: Performed By: #### U MAXI, LIPID, MG, CMP, DBIL, PHOS #### [facility] [address] [address] [address] Sarmad Patino STREPT SCREENon 01-03-2022 STREP SCREEN A Negative Normal NEGATIVE [facility] Comment on above: Performed By: #### U MAXI, LIPID, MG, CMP, DBIL, PHOS #### [facility] [address] [address] [address] Sarmad Patino XR CHEST 2 Von [...] MAYRA WHITESIDE Date: 2022-01-03 03:54 Normal [facility] Quick Strepon 12-28-2021 S. pyogenes Org specific cx Ql (Throat) Negative [employer] Other Quick Strep [employer] Other SARS-CoV-2 (COVID-19) RNA NA A+probe Ql (Resp)on 12-25-2021 SARS-CoV-2 (COVID-19) RNA MURALI+probe Ql (Unsp spec) Negative [facility] Other FK506 (TACROLIMUS) WHOLE BLO ODon 12-08-2021 Tacrolimus (FK506), Blood 6.6 ng/mL Normal 2.0-20.0 [facility] Comment on above: Result Comment: Trou gh (immediately following transplant) 15.0 . Trough (steady state, 2 weeks or more after transplant): 3.0 - 8.0 . Performed by LC-MS/MS technology. Performed By: #### D DAVIDSON, MG, PHOS, CMP, LIPID, URIC #### [facility] [address] [place] [address] Dr. Sarmad Patino RAPAMUNE(SIROLIMUS)on 2021 Rapamune(Sirolimus), whole blood 9.6 ng/mL Normal 3.0-20.0 [facility] Comment on above: Result Comment: Perf ormed by LC/MS-MS technology . This test was developed and its performance characteristics determined by [facility]. It has not been cleared or approved by the Food and Drug Administration. Performed By: #### D DAVIDSON, MG, PHOS, CMP, LIPID, URIC #### [facility] [address] [address] [address] Sarmad Patino BILIRUBIN CONJUGATED (DIRECT )on 12-05-2021 BILI, CONJUGATED 0.1 mg/dL Normal 0.0-0.2 [facility] Comment on above: Performed By: #### D DAVIDSON, MG, PHOS, CMP, LIPID, URIC #### [facility] [address] [address] [address] Sarmad Patino CBC W MANUAL DIFFon 12-06-19 22 ATYPICAL LYMPH # Normal [facility] Comment on above: Performed By: #### D DAVIDSON, MG, PHOS, CMP, LIPID, URIC #### [facility] [address] [place] [address] Dr. Sarmad Patino ATYPICAL LYMPH % Normal [facility] Comment on above: Performed By: #### D DAVIDSON, MG, PHOS, CMP, LIPID, URIC #### [facility] [address] [place] [address] Dr. Sarmad Patino BAND # Normal 0.0-0.3 [facility] Comment on above: Performed By: #### D DAVIDSON, MG, PHOS, CMP, LIPID, URIC #### [facility] [address] [place] [address] Dr. Sarmad Patino BAND % Normal 0-5 [facility] Comment on above: Performed By: #### D DAVIDSON, MG, PHOS, CMP, LIPID, URIC #### [facility] [address] [place] [address] Dr. Sarmad Patino BASOM # 0.00 103/ul Normal 0.00-0.10 [facility] Comment on above: Performed By: #### D DAVIDSON, MG, PHOS, CMP, LIPID, URIC #### [facility] [address] [place] [address] Dr. Sarmad Patino BASOM % 0.0 % Critically low 0.2-2.0 [facility] Comment on above: Performed By: #### D DAVIDSON, MG, PHOS, CMP, LIPID, URIC #### [facility] [address] [place] [address] Dr. Sarmad Patino BLAST # Normal [facility] Comment on above: Performed By: #### D DAVIDSON, MG, PHOS, CMP, LIPID, URIC #### [facility] [address] [place] [address] Dr. Sarmad Patino BLAST % Normal [facility] Comment on above: Performed By: #### D DAVIDSON, MG, PHOS, CMP, LIPID, URIC #### [facility] [address] [place] [address] Dr. Sarmad Patino CORRECTED WBC Normal 4.0-11.0 [facility] Comment on above: Performed By: #### D DAVIDSON, MG, PHOS, CMP, LIPID, URIC #### [facility] [address] [address] [address] Sarmad Patino EOS # 0.15 103/ul Normal 0.00-0.70 [facility] Comment on above: Performed By: #### D DAVIDSON, MG, PHOS, CMP, LIPID, URIC #### [facility] [address] [place] [address] Dr. Sarmad Patino EOS% 2.0 % Normal 0.9-7.0 [facility] Comment on above: Performed By: #### D DAVIDSON, MG, PHOS, CMP, LIPID, URIC #### [facility] [address] [place] [address] Dr. Sarmad Patino HCT 47.5 % Normal 36.0-48.0 [facility] Comment on above: Performed By: #### D DAVIDSON, MG, PHOS, CMP, LIPID, URIC #### [facility] [address] [place] [address] Dr. Sarmad Patino HGB 15.6 g/dl Normal 12.0-16.0 [facility] Comment on above: Performed By: #### D DAVIDSON, MG, PHOS, CMP, LIPID, URIC #### [facility] [address] [place] [address] Dr. Sarmad Patino LYMPHM # 1.46 103/ul Normal 1.20-3.80 [facility] Comment on above: Performed By: #### D DAVIDSON, MG, PHOS, CMP, LIPID, URIC #### [facility] [address] [place] [address] Dr. Sarmad Patino LYMPHM% 19.0 % Critically low 20.5-60.0 [facility] Comment on above: Performed By: #### D DAVIDSON, MG, PHOS, CMP, LIPID, URIC #### [facility] [address] [place] [address] Dr. Sarmad Patino MCH 28.9 pg Normal 26.7-34.0 [facility] Comment on above: Performed By: #### D DAVIDSON, MG, PHOS, CMP, LIPID, URIC #### [facility] [address] [address] [address] Sarmad Patino MCHC 32.8 g/dl Normal 29.9-35.2 [facility] Comment on above: Performed By: #### D DAVIDSON, MG, PHOS, CMP, LIPID, URIC #### [facility] [address] [place] [address] Dr. Sarmad Patino MCV 88.1 fL Normal 81.0-99.0 [facility] Comment on above: Performed By: #### D DAVIDSON, MG, PHOS, CMP, LIPID, URIC #### [facility] [address] [place] [address] Dr. Sarmad Patino METAMYELOCYTE # Normal [facility] Comment on above: Performed By: #### D DAVIDSON, MG, PHOS, CMP, LIPID, URIC #### [facility] [address] [place] [address] Dr. Sarmad Patino METAMYELOCYTE % Normal [facility] Comment on above: Performed By: #### D DAVIDSON, MG, PHOS, CMP, LIPID, URIC #### [facility] [address] [place] [address] Dr. Sarmad Patino MONOM# 0.85 103/ul Critically high 0.30-0.80 [facility] Comment on above: Performed By: #### D DAVIDSON, MG, PHOS, CMP, LIPID, URIC #### [facility] [address] [place] [address] Dr. Sarmad Patino MONOM% 11.0 % Normal 1.7-12.0 [facility] Comment on above: Performed By: #### D DAVIDSON, MG, PHOS, CMP, LIPID, URIC #### [facility] [address] [place] [address] Dr. Sarmad Patino MPV 11.3 fL Normal 9.5-13.5 [facility] Comment on above: Performed By: #### D DAVIDSON, MG, PHOS, CMP, LIPID, URIC #### [facility] [address] [address] [address] Sarmad Patino MYELOCYTE # Normal [facility] Comment on above: Performed By: #### D DAVIDSON, MG, PHOS, CMP, LIPID, URIC #### [facility] [address] [place] [address] Dr. Sarmad Patino MYELOCYTE % Normal [facility] Comment on above: Performed By: #### D DAVIDSON, MG, PHOS, CMP, LIPID, URIC #### [facility] [address] [address] [address] Sarmad Patino NRBC Normal [facility] Comment on above: Performed By: #### D DAVIDSON, MG, PHOS, CMP, LIPID, URIC #### [facility] [address] [place] [address] Dr. Sarmad Patino PLT 214 103/ul Normal 150-450 [facility] Comment on above: Performed By: #### D DAVIDSON, MG, PHOS, CMP, LIPID, URIC #### [facility] [address] [place] [address] Dr. Sarmad Patino RBC 5.39 106/ul Normal 4.20-5.40 [facility] Comment on above: Performed By: #### D DAVIDSON, MG, PHOS, CMP, LIPID, URIC #### [facility] [address] [place] [address] Dr. Sarmad Patino RDW 13.8 % Normal 11.0-15.0 [facility] [facility] Comment on above: Performed By: #### D DAVIDSON, MG, PHOS, CMP, LIPID, URIC #### [facility] [address] [place] [address] Dr. Sarmad Patino SEG # 5.24 103/ul Normal 1.40-6.50 [facility] Comment on above: Performed By: #### D DAVIDSON, MG, PHOS, CMP, LIPID, URIC #### [facility] [address] [place] [address] Dr. Sarmad Patino SEG % 68.0 % Normal 43.0-75.0 [facility] Comment on above: Performed By: #### D DAVIDSON, MG, PHOS, CMP, LIPID, URIC #### [facility] [address] [address] [address] Sarmad Patino WBC 7.7 103/ul Normal 4.0-11.0 [facility] Comment on above: Performed By: #### D DAVIDSON, MG, PHOS, CMP, LIPID, URIC #### [facility] [address] [address] [address] Sarmad Patino LIPID PROFILEon 12-05-2021 CHOL-HDL RATIO NORM SEE BELOW Normal [facility] Comment on above: Result Comment: 3.3 - 4.4 LOW RISK 4.4 - 7.1 AVERAGE RISK 7.1 - 11.0 MODERATE RISK >11.0 HIGH RISK Performed By: #### D DAVIDSON, MG, PHOS, CMP, LIPID, URIC #### [facility] [address] [address] [address] Sarmad Patino Cholesterol [Mass/Vol] 170 mg/dL Normal <=200 [facility] Comment on above: Performed By: #### D DAVIDSON, MG, PHOS, CMP, LIPID, URIC #### [facility] [address] [address] [address] Sarmad Patino Cholesterol in HDL [Mass/Vol] 54 mg/dL Normal 40-60 [facility] Comment on above: Performed By: #### D DAVIDSON, MG, PHOS, CMP, LIPID, URIC #### [facility] [address] [address] [address] Sarmad Patino Cholesterol in LDL [Mass/Vol] 92.2 mg/dL Normal [facility] Comment on above: Performed By: #### D DAVIDSON, MG, PHOS, CMP, LIPID, URIC #### [facility] [address] [address] [address] Sarmad Patino Cholesterol.total/Cho lesterol in HDL [Mass ratio] 3.1 {ratio} Normal [facility] Comment on above: Performed By: #### D DAVIDSON, MG, PHOS, CMP, LIPID, URIC #### [facility] [address] [address] [address] Sarmad Patino HDL NORMAL > or = 60 mg/dl - LO W CARDIOVASCULAR RISK <40 mg/dl - HIGH CARDIOVASCULAR RISK Normal [facility] Comment on above: Performed By: #### D DAVIDSON, MG, PHOS, CMP, LIPID, URIC #### [facility] [address] [address] [address] Sarmad Patino LDL CALC NORMAL SEE BELOW Normal [facility] Comment on above: Result Comment: <100 mg/dl OPTIMAL 100 - 129 mg/dl NEAR OR ABOVE OPTIMAL 130 - 159 mg/dl BORDERLINE HIGH 160 - 189 mg/dl HIGH >190 mg/dl VERY HIGH Performed By: #### D DAVIDSON, MG, PHOS, CMP, LIPID, URIC #### [facility] [address] [address] [address] Sarmad Patino Triglyceride [Mass/Vol] 119 mg/dL Normal <=150 [facility] Comment on above: Performed By: #### D DAVIDSON, MG, PHOS, CMP, LIPID, URIC #### [facility] [address] [address] [address] Sarmad Patino VLDL CALC 23.8 mg/dL Normal [facility] Comment on above: Performed By: #### D DAVIDSON, MG, PHOS, CMP, LIPID, URIC #### [facility] [address] [address] [address] Sarmad Patino MAGNESIUMon 12-05-2021 Magnesium [Mass/Vol] 1.8 mg/dL Normal 1.8-2.4 [facility] Comment on above: Performed By: #### D DAVIDSON, MG, PHOS, CMP, LIPID, URIC #### [facility] [address] [address] [address] Sarmad Patino PHOSPHORUSon 12-05-2021 Phosphate [Mass/Vol] 3.8 mg/dL Normal 2.6-4.7 [facility] Comment on above: Performed By: #### D DAVIDSON, MG, PHOS, CMP, LIPID, URIC #### [facility] [address] [place] [address] Dr. Sarmad Patino PROF 14(COMP METB)on 022 Albumin [Mass/Vol] 3.7 g/dL Normal 3.4-5.0 [facility] Comment on above: Performed By: #### D DAVIDSON, MG, PHOS, CMP, LIPID, URIC #### [facility] [address] [address] [address] Sarmad Patino Albumin/Globulin [Mass ratio] 1.0 {ratio} Normal [facility] Comment on above: Performed By: #### D DAVIDSON, MG, PHOS, CMP, LIPID, URIC #### [facility] [address] [address] [address] Sarmad Patino ALP [Catalytic activity/Vol] 151 U/L Critically high 46-116 [facility] Comment on above: Performed By: #### D DAVIDSON, MG, PHOS, CMP, LIPID, URIC #### [facility] [address] [place] [address] Dr. Sarmad Patino ALT [Catalytic activity/Vol] 27 U/L Normal 14-59 [facility] Comment on above: Performed By: #### D DAVIDSON, MG, PHOS, CMP, LIPID, URIC #### [facility] [address] [place] [address] Dr. Sarmad Patino Anion gap [Moles/Vol] 14.5 mmol/L Normal [facility] Comment on above: Performed By: #### D DAVIDSON, MG, PHOS, CMP, LIPID, URIC #### [facility] [address] [place] [address] Dr. Sarmad Patino AST [Catalytic activity/Vol] 25 U/L Normal 15-37 [facility] Comment on above: Performed By: #### D DAVIDSON, MG, PHOS, CMP, LIPID, URIC #### [facility] [address] [place] [address] Dr. Sarmad Patino Bilirubin [Mass/Vol] 0.4 mg/dL Normal 0.2-1.0 [facility] Comment on above: Performed By: #### D DAVIDSON, MG, PHOS, CMP, LIPID, URIC #### [facility] [address] [place] [address] Dr. Sarmad Patino Calcium [Mass/Vol] 9.4 mg/dL Normal 8.5-10.1 [facility] Comment on above: Performed By: #### D DAVIDSON, MG, PHOS, CMP, LIPID, URIC #### [facility] [address] [address] [address] Sarmad Patino Chloride [Moles/Vol] 103 mmol/L Normal 98-107 [facility] Comment on above: Performed By: #### D DAVIDSON, MG, PHOS, CMP, LIPID, URIC #### [facility] [address] [address] [address] Sarmad Patino CO2 [Moles/Vol] 26.5 mmol/L Normal 21.0-32.0 [facility] Comment on above: Performed By: #### D DAVIDSON, MG, PHOS, CMP, LIPID, URIC #### [facility] [address] [place] [address] Dr. Sarmad Patino Creatinine [Mass/Vol] 0.87 mg/dL Normal 0.55-1.02 [facility] Comment on above: Performed By: #### D DAVIDSON, MG, PHOS, CMP, LIPID, URIC #### [facility] [address] [place] [address] Dr. Sarmad Patino EGFR-AF PUERTO RICAN >60 Normal >=60 [facility] Comment on above: Performed By: #### D DAVIDSON, MG, PHOS, CMP, LIPID, URIC #### [facility] [address] [place] [address] Dr. Sarmad Patino EGFR-NON AF PUERTO RICAN >60 Normal >=60 [facility] Comment on above: Performed By: #### D DAVIDSON, MG, PHOS, CMP, LIPID, URIC #### [facility] [address] [place] [address] Dr. Sarmad Patino Globulin (S) [Mass/Vol] 3.8 g/dL Normal [facility] Comment on above: Performed By: #### D DAVIDSON, MG, PHOS, CMP, LIPID, URIC #### [facility] [address] [place] [address] Dr. Sarmad Patino Glucose [Mass/Vol] 104 mg/dL Normal 74-106 [facility] Comment on above: Performed By: #### D DAVIDSON, MG, PHOS, CMP, LIPID, URIC #### [facility] [address] [address] [address] Sarmad Patino Potassium [Moles/Vol] 4.0 mmol/L Normal 3.5-5.1 [facility] Comment on above: Performed By: #### D DAVIDSON, MG, PHOS, CMP, LIPID, URIC #### [facility] [address] [place] [address] Dr. Sarmad Patino Protein [Mass/Vol] 7.5 g/dL Normal 6.4-8.2 [facility] Comment on above: Performed By: #### D DAVIDSON, MG, PHOS, CMP, LIPID, URIC #### [facility] [address] [place] [address] Dr. Sarmad Patino Sodium [Moles/Vol] 140 mmol/L Normal 136-145 [facility] Comment on above: Performed By: #### D DAVIDSON, MG, PHOS, CMP, LIPID, URIC #### [facility] [address] [place] [address] Dr. Sarmad Patino Urea nitrogen [Mass/Vol] 19.0 mg/dL Critically high 7.0-18.0 [facility] Comment on above: Performed By: #### D DAVIDSON, MG, PHOS, CMP, LIPID, URIC #### [facility] [address] [place] [address] Dr. Sarmad Patino Urea nitrogen/Creatinine [Mass ratio] 21.8 mg/mg Normal [facility] Comment on above: Performed By: #### D DAVIDSON, MG, PHOS, CMP, LIPID, URIC #### [facility] [address] [place] [address] Dr. Sarmad Patino URIC ACID SERUMon 12-05-2021 Urate [Mass/Vol] 5.2 mg/dL Normal 2.6-6.0 [facility] Comment on above: Performed By: #### D DAVIDSON, MG, PHOS, CMP, LIPID, URIC #### [facility] [address] [place] [address] Dr. Sarmad TRIVEDI, WHOLE BLOODon EVEROLIMUS 7.0 ng/mL Normal 3.0-8.0 [facility] Comment on above: Result Comment: Perf ormed by LC-MS/MS technology. Performed By: #### D DAVIDSON, MG, PHOS, CMP, LIPID, URIC #### [facility] [address] [place] [address] Dr. Sarmad Patino FK506 (TACROLIMUS) WHOLE BLO ODon 11-10-2021 Tacrolimus (FK506), Blood 6.4 ng/mL Normal 2.0-20.0 [facility] Comment on above: Result Comment: Trou gh (immediately following transplant) 15.0 . Trough (steady state, 2 weeks or more after transplant): 3.0 - 8.0 . Performed by LC-MS/MS technology. Performed By: #### D DAVIDSON, MG, PHOS, CMP, LIPID, URIC #### [facility] [address] [place] [address] Dr. Sarmad Patino BK VIRUS PCR QUANTon 022 BKV DNA QUANT PCR PLASMA Negative Normal Negative [facility] Comment on above: Result Comment: No B K DNA detected. . The linear range of the assay is 22 - 100,000,000 IU/mL. Performed By: #### U MAXI, LIPID, MG, CMP, DBIL, PHOS #### [facility] [address] [place] [address] Dr. Sarmad Patino Log10 BKV DNA Plasma Normal [facility] Comment on above: Performed By: #### U MAXI, LIPID, MG, CMP, DBIL, PHOS #### [facility] [address] [place] [address] Dr. Sarmad Patino BILIRUBIN CONJUGATED (DIRECT )on 11-07-2021 BILI, CONJUGATED 0.1 mg/dL Normal 0.0-0.2 [facility] Comment on above: Performed By: #### D DAVIDSON, MG, PHOS, CMP, LIPID, URIC #### [facility] [address] [place] [address] Dr. Sarmad Patino CBC AUTO DIFFon 11-07-2021 BASO # 0.0 103/ul Normal 0.0-0.1 [facility] Comment on above: Performed By: #### D DAVIDSON, MG, PHOS, CMP, LIPID, URIC #### [facility] [address] [place] [address] Dr. Sarmad Patino Basophils/100 WBC (Bld) 0.3 % Normal 0.2-2.0 [facility] Comment on above: Performed By: #### D DAVIDSON, MG, PHOS, CMP, LIPID, URIC #### [facility] [address] [place] [address] Dr. Sarmad Patino EO # 0.1 103/ul Normal 0.0-0.7 [facility] Comment on above: Performed By: #### D DAVIDSON, MG, PHOS, CMP, LIPID, URIC #### [facility] [address] [place] [address] Dr. Sarmad Patino Eosinophils/100 WBC (Bld) 2.1 % Normal 0.9-7.0 [facility] Comment on above: Performed By: #### D DAVIDSON, MG, PHOS, CMP, LIPID, URIC #### [facility] [address] [place] [address] Dr. Sarmad Patino Erythrocyte distribution width (RBC) [Ratio] 13.5 % Normal 11.0-15.0 [facility] Comment on above: Performed By: #### D DAVIDSON, MG, PHOS, CMP, LIPID, URIC #### [facility] [address] [place] [address] Dr. Sarmad Patino Hematocrit (Bld) [Volume fraction] 46.7 % Normal 36.0-48.0 [facility] Comment on above: Performed By: #### D DAVIDSON, MG, PHOS, CMP, LIPID, URIC #### [facility] [address] [place] [address] Dr. Sarmad Patino Hemoglobin (Bld) [Mass/Vol] 15.1 g/dL Normal 12.0-16.0 [facility] Comment on above: Performed By: #### D DAVIDSON, MG, PHOS, CMP, LIPID, URIC #### [facility] [address] [place] [address] Dr. Sarmad Patino IG # 0.03 10e3/ul Normal 0.00-0.03 [facility] Comment on above: Performed By: #### D DAVIDSON, MG, PHOS, CMP, LIPID, URIC #### [facility] [address] [address] [address] Sarmad Patino IG % 0.5 % Normal 0.0-0.5 [facility] Comment on above: Performed By: #### D DAVIDSON, MG, PHOS, CMP, LIPID, URIC #### [facility] [address] [place] [address] Dr. Sarmad Patino LYMPH # 1.3 103/ul Normal 1.2-3.8 [facility] Comment on above: Performed By: #### D DAVIDSON, MG, PHOS, CMP, LIPID, URIC #### [facility] [address] [place] [address] Dr. Sarmad Patino Lymphocytes/100 WBC (Bld) 19.9 % Critically low 20.5-60.0 [facility] Comment on above: Performed By: #### D DAVIDSON, MG, PHOS, CMP, LIPID, URIC #### [facility] [address] [place] [address] Dr. Sarmad Patino MANUAL DIFF REQ NO Normal [facility] Comment on above: Performed By: #### D DAVIDSON, MG, PHOS, CMP, LIPID, URIC #### [facility] [address] [place] [address] Dr. Sarmad Patino MCH (RBC) [Entitic mass] 28.6 pg Normal 26.7-34.0 [facility] Comment on above: Performed By: #### D DAVIDSON, MG, PHOS, CMP, LIPID, URIC #### [facility] [address] [place] [address] Dr. Sarmad Patino MCHC (RBC) [Mass/Vol] 32.3 g/dL Normal 29.9-35.2 [facility] Comment on above: Performed By: #### D DAVIDSON, MG, PHOS, CMP, LIPID, URIC #### [facility] [address] [place] [address] Dr. Sarmad Patino MCV (RBC) [Entitic vol] 88.4 fL Normal 81.0-99.0 [facility] Comment on above: Performed By: #### D DAVIDSON, MG, PHOS, CMP, LIPID, URIC #### [facility] [address] [place] [address] Dr. Sarmad Patino MONO # 0.8 103/ul Normal 0.3-0.8 [facility] Comment on above: Performed By: #### D DAVIDSON, MG, PHOS, CMP, LIPID, URIC #### [facility] [address] [place] [address] Dr. Sarmad Patino Monocytes/100 WBC (Bld) 12.9 % Critically high 1.7-12.0 [facility] Comment on above: Performed By: #### D DAVIDSON, MG, PHOS, CMP, LIPID, URIC #### [facility] [address] [place] [address] Dr. Sarmad Patino NEUT # 4.0 103/ul Normal 1.4-6.5 [facility] Comment on above: Performed By: #### D DAVIDSON, MG, PHOS, CMP, LIPID, URIC #### [facility] [address] [place] [address] Dr. Sarmad Patino Neutrophils/100 WBC (Bld) 64.3 % Normal 43.0-75.0 [facility] Comment on above: Performed By: #### D DAVIDSON, MG, PHOS, CMP, LIPID, URIC #### [facility] [address] [place] [address] Dr. Sarmad Patino Platelet mean volume (Bld) [Entitic vol] 11.3 fL Normal 9.5-13.5 [facility] Comment on above: Performed By: #### D DAVIDSON, MG, PHOS, CMP, LIPID, URIC #### [facility] [address] [place] [address] Dr. Sarmad Patino PLT 241 103/ul Normal 150-450 [facility] Comment on above: Performed By: #### D DAVIDSON, MG, PHOS, CMP, LIPID, URIC #### [facility] [address] [place] [address] Dr. Sarmad Patino RBC 5.28 106/ul Normal 4.20-5.40 [facility] Comment on above: Performed By: #### D DAVIDSON, MG, PHOS, CMP, LIPID, URIC #### [facility] [address] [address] [address] Sarmad Patino WBC 6.3 103/ul Normal 4.0-11.0 [facility] Comment on above: Performed By: #### D DAVIDSON, MG, PHOS, CMP, LIPID, URIC #### [facility] [address] [address] [address] Sarmad Patino GLYCOHEMOGLOBIN A1Con 2021 ADA RECOMMENDATION SEE BELOW Normal [facility] Comment on above: Result Comment: ADA RECOMMENDED LIMIT 4.0 - 6.0 ADA THERAPEUTIC TARGET < 7.0 ACTION SUGGESTED > 7.0 Performed By: #### D DAVIDSON, MG, PHOS, CMP, LIPID, URIC #### [facility] [address] [place] [address] Dr. Sarmad Patino Glucose [Mass/Vol] 120 mg/dL Normal [facility] Comment on above: Performed By: #### D DAVIDSON, MG, PHOS, CMP, LIPID, URIC #### [facility] [address] [address] [address] Sarmad Patino HbA1c (Bld) [Mass fraction] 5.8 % Normal 4.5-6.2 [facility] Comment on above: Performed By: #### D DAVIDSON, MG, PHOS, CMP, LIPID, URIC #### [facility] [address] [place] [address] Dr. Sarmad Patino LIPID PROFILEon 11-07-2021 CHOL-HDL RATIO NORM SEE BELOW Normal [facility] Comment on above: Result Comment: 3.3 - 4.4 LOW RISK 4.4 - 7.1 AVERAGE RISK 7.1 - 11.0 MODERATE RISK >11.0 HIGH RISK Performed By: #### D DAVIDSON, MG, PHOS, CMP, LIPID, URIC #### [facility] [address] [address] [address] Sarmad Patino Cholesterol [Mass/Vol] 157 mg/dL Normal <=200 [facility] Comment on above: Performed By: #### D DAVIDSON, MG, PHOS, CMP, LIPID, URIC #### [facility] [address] [address] [address] Sarmad Patino Cholesterol in HDL [Mass/Vol] 48 mg/dL Normal 40-60 [facility] Comment on above: Performed By: #### D DAVIDSON, MG, PHOS, CMP, LIPID, URIC #### [facility] [address] [address] [address] Sarmad Patino Cholesterol in LDL [Mass/Vol] 89.6 mg/dL Normal [facility] Comment on above: Performed By: #### D DAVIDSON, MG, PHOS, CMP, LIPID, URIC #### [facility] [address] [address] [address] Sarmad Patino Cholesterol.total/Cho lesterol in HDL [Mass ratio] 3.3 {ratio} Normal [facility] Comment on above: Performed By: #### D DAVIDSON, MG, PHOS, CMP, LIPID, URIC #### [facility] [address] [address] [address] Sarmad Patino HDL NORMAL > or = 60 mg/dl - LO W CARDIOVASCULAR RISK <40 mg/dl - HIGH CARDIOVASCULAR RISK Normal [facility] Comment on above: Performed By: #### D DAVIDSON, MG, PHOS, CMP, LIPID, URIC #### [facility] [address] [address] [address] Sarmad Patino LDL CALC NORMAL SEE BELOW Normal [facility] Comment on above: Result Comment: <100 mg/dl OPTIMAL 100 - 129 mg/dl NEAR OR ABOVE OPTIMAL 130 - 159 mg/dl BORDERLINE HIGH 160 - 189 mg/dl HIGH >190 mg/dl VERY HIGH Performed By: #### D DAVIDSON, MG, PHOS, CMP, LIPID, URIC #### [facility] [address] [address] [address] Sarmad Patino Triglyceride [Mass/Vol] 97 mg/dL Normal <=150 [facility] Comment on above: Performed By: #### D DAVIDSON, MG, PHOS, CMP, LIPID, URIC #### [facility] [address] [address] [address] Sarmad Patino VLDL CALC 19.4 mg/dL Normal [facility] Comment on above: Performed By: #### D DAVIDSON, MG, PHOS, CMP, LIPID, URIC #### [facility] [address] [place] [address] Dr. Sarmad Patino MAGNESIUMon 11-07-2021 Magnesium [Mass/Vol] 1.9 mg/dL Normal 1.8-2.4 [facility] Comment on above: Performed By: #### D DAVIDSON, MG, PHOS, CMP, LIPID, URIC #### [facility] [address] [place] [address] Dr. Sarmad Patino PHOSPHORUSon 11-07-2021 Phosphate [Mass/Vol] 3.4 mg/dL Normal 2.6-4.7 [facility] Comment on above: Performed By: #### D DAVIDSON, MG, PHOS, CMP, LIPID, URIC #### [facility] [address] [place] [address] Dr. Sarmad Patino PROF 14(COMP METB)on 022 Albumin [Mass/Vol] 3.6 g/dL Normal 3.4-5.0 [facility] Comment on above: Performed By: #### D DAVIDSON, MG, PHOS, CMP, LIPID, URIC #### [facility] [address] [place] [address] Dr. Sarmad Patino Albumin/Globulin [Mass ratio] 0.9 {ratio} Normal [facility] Comment on above: Performed By: #### D DAVIDSON, MG, PHOS, CMP, LIPID, URIC #### [facility] [address] [place] [address] Dr. Sarmad Patino ALP [Catalytic activity/Vol] 158 U/L Critically high 46-116 [facility] Comment on above: Performed By: #### D DAVIDSON, MG, PHOS, CMP, LIPID, URIC #### [facility] [address] [place] [address] Dr. Sarmad Patino ALT [Catalytic activity/Vol] 23 U/L Normal 14-59 [facility] Comment on above: Performed By: #### D DAVIDSON, MG, PHOS, CMP, LIPID, URIC #### [facility] [address] [place] [address] Dr. Sarmad Patino Anion gap [Moles/Vol] 14.8 mmol/L Normal [facility] Comment on above: Performed By: #### D DAVIDSON, MG, PHOS, CMP, LIPID, URIC #### [facility] [address] [place] [address] Dr. Sarmad Patino AST [Catalytic activity/Vol] 18 U/L Normal 15-37 [facility] Comment on above: Performed By: #### D DAVIDSON, MG, PHOS, CMP, LIPID, URIC #### [facility] [address] [place] [address] Dr. Sarmad Patino Bilirubin [Mass/Vol] 0.4 mg/dL Normal 0.2-1.0 [facility] Comment on above: Performed By: #### D DAVIDSON, MG, PHOS, CMP, LIPID, URIC #### [facility] [address] [place] [address] Dr. Sarmad Patino Calcium [Mass/Vol] 9.3 mg/dL Normal 8.5-10.1 [facility] Comment on above: Performed By: #### D DAVIDSON, MG, PHOS, CMP, LIPID, URIC #### [facility] [address] [place] [address] Dr. Sarmad Patino Chloride [Moles/Vol] 105 mmol/L Normal 98-107 [facility] Comment on above: Performed By: #### D DAVIDSON, MG, PHOS, CMP, LIPID, URIC #### [facility] [address] [place] [address] Dr. Sarmad Patino CO2 [Moles/Vol] 26.1 mmol/L Normal 21.0-32.0 [facility] Comment on above: Performed By: #### D DAVIDSON, MG, PHOS, CMP, LIPID, URIC #### [facility] [address] [place] [address] Dr. Sarmad Patino Creatinine [Mass/Vol] 0.84 mg/dL Normal 0.55-1.02 [facility] Comment on above: Performed By: #### D DAVIDSON, MG, PHOS, CMP, LIPID, URIC #### [facility] [address] [address] [address] Sarmad Patino EGFR-AF PUERTO RICAN >60 Normal >=60 [facility] Comment on above: Performed By: #### D DAVIDSON, MG, PHOS, CMP, LIPID, URIC #### [facility] [address] [address] [address] Sarmad Patino EGFR-NON AF PUERTO RICAN >60 Normal >=60 [facility] Comment on above: Performed By: #### D DAVIDSON, MG, PHOS, CMP, LIPID, URIC #### [facility] [address] [address] [address] Sarmad Patino Globulin (S) [Mass/Vol] 3.8 g/dL Normal [facility] Comment on above: Performed By: #### D DAVIDSON, MG, PHOS, CMP, LIPID, URIC #### [facility] [address] [address] [address] Sarmad Patino Glucose [Mass/Vol] 97 mg/dL Normal 74-106 [facility] Comment on above: Performed By: #### D DAVIDSON, MG, PHOS, CMP, LIPID, URIC #### [facility] [address] [address] [address] Sarmad Patino Potassium [Moles/Vol] 3.9 mmol/L Normal 3.5-5.1 [facility] Comment on above: Performed By: #### D DAVIDSON, MG, PHOS, CMP, LIPID, URIC #### [facility] [address] [address] [address] Sarmad Patino Protein [Mass/Vol] 7.4 g/dL Normal 6.4-8.2 [facility] Comment on above: Performed By: #### D DAVIDSON, MG, PHOS, CMP, LIPID, URIC #### [facility] [address] [address] [address] Sarmad Patino Sodium [Moles/Vol] 142 mmol/L Normal 136-145 [facility] Comment on above: Performed By: #### D DAVIDSON, MG, PHOS, CMP, LIPID, URIC #### [facility] [address] [address] [address] Sarmad Patino Urea nitrogen [Mass/Vol] 21.0 mg/dL Critically high 7.0-18.0 [facility] Comment on above: Performed By: #### D DAVIDSON, MG, PHOS, CMP, LIPID, URIC #### [facility] [address] [place] [address] Dr. Sarmad Patino Urea nitrogen/Creatinine [Mass ratio] 25.0 mg/mg Normal [facility] Comment on above: Performed By: #### D DAVIDSON, MG, PHOS, CMP, LIPID, URIC #### [facility] [address] [place] [address] Dr. Sarmad Patino URIC ACID SERUMon 11-07-2021 Urate [Mass/Vol] 5.1 mg/dL Normal 2.6-6.0 [facility] Comment on above: Performed By: #### D DAVIDSON, MG, PHOS, CMP, LIPID, URIC #### [facility] [address] [place] [address] Dr. Sarmad Patino BOX TEST SENT OUTon 10-16-19 SENT TO REF LAB 10/15/2021 Normal [facility] Comment on above: Performed By: #### D DAVIDSON, MG, PHOS, CMP, LIPID, URIC #### [facility] [address] [place] [address] Dr. Sarmad Patino EVEROLIMU, WHOLE BLOODon EVEROLIMUS 6.7 ng/mL Normal 3.0-8.0 [facility] Comment on above: Result Comment: Perf ormed by LC-MS/MS technology. Performed By: #### D DAVIDSON, MG, PHOS, CMP, LIPID, URIC #### [facility] [address] [place] [address] Dr. Sarmad Patino FK506 (TACROLIMUS) WHOLE BLO ODon 10-10-2021 Tacrolimus (FK506), Blood 5.9 ng/mL Normal 2.0-20.0 [facility] Comment on above: Result Comment: Trou gh (immediately following transplant) 15.0 . Trough (steady state, 2 weeks or more after transplant): 3.0 - 8.0 . Performed by LC-MS/MS technology. Performed By: #### D DAVIDSON, MG, PHOS, CMP, LIPID, URIC #### [facility] [address] [place] [address] Dr. Sarmad Patino BILIRUBIN CONJUGATED (DIRECT )on 10-08-2021 BILI, CONJUGATED 0.1 mg/dL Normal 0.0-0.2 [facility] Comment on above: Performed By: #### U MAXI, LIPID, MG, CMP, DBIL, PHOS #### [facility] [address] [place] [address] Dr. Sarmad Patino CBC AUTO DIFFon 10-08-2021 BASO # 0.0 103/ul Normal 0.0-0.1 [facility] Comment on above: Performed By: #### D DAVIDSON, MG, PHOS, CMP, LIPID, URIC #### [facility] [address] [place] [address] Dr. Sarmad Patino Basophils/100 WBC (Bld) 0.1 % Critically low 0.2-2.0 [facility] Comment on above: Performed By: #### D DAVIDSON, MG, PHOS, CMP, LIPID, URIC #### [facility] [address] [place] [address] Dr. Sarmad Patino EO # 0.1 103/ul Normal 0.0-0.7 [facility] Comment on above: Performed By: #### D DAVIDSON, MG, PHOS, CMP, LIPID, URIC #### [facility] [address] [place] [address] Dr. Sarmad Patino Eosinophils/100 WBC (Bld) 1.4 % Normal 0.9-7.0 [facility] Comment on above: Performed By: #### D DAVIDSON, MG, PHOS, CMP, LIPID, URIC #### [facility] [address] [place] [address] Dr. Sarmad Patino Erythrocyte distribution width (RBC) [Ratio] 13.6 % Normal 11.0-15.0 [facility] Comment on above: Performed By: #### D DAVIDSON, MG, PHOS, CMP, LIPID, URIC #### [facility] [address] [place] [address] Dr. Sarmad Patino Hematocrit (Bld) [Volume fraction] 47.5 % Normal 36.0-48.0 [facility] Comment on above: Performed By: #### D DAVIDSON, MG, PHOS, CMP, LIPID, URIC #### [facility] [address] [address] [address] Sarmad Patino Hemoglobin (Bld) [Mass/Vol] 15.7 g/dL Normal 12.0-16.0 [facility] Comment on above: Performed By: #### D DAVIDSON, MG, PHOS, CMP, LIPID, URIC #### [facility] [address] [address] [address] Sarmad Patino IG # 0.04 10e3/ul Critically high 0.00-0.03 [facility] Comment on above: Performed By: #### D DAVIDSON, MG, PHOS, CMP, LIPID, URIC #### [facility] [address] [place] [address] Dr. Samrad Patino IG % 0.5 % Normal 0.0-0.5 [facility] Comment on above: Performed By: #### D DAVIDSON, MG, PHOS, CMP, LIPID, URIC #### [facility] [address] [place] [address] Dr. Sarmad Patino LYMPH # 1.3 103/ul Normal 1.2-3.8 [facility] Comment on above: Performed By: #### D DAVIDSON, MG, PHOS, CMP, LIPID, URIC #### [facility] [address] [address] [address] Sarmad Patino Lymphocytes/100 WBC (Bld) 15.4 % Critically low 20.5-60.0 [facility] Comment on above: Performed By: #### D DAVIDSON, MG, PHOS, CMP, LIPID, URIC #### [facility] [address] [place] [address] Dr. Sarmad Patino MANUAL DIFF REQ NO Normal [facility] Comment on above: Performed By: #### D DAVIDSON, MG, PHOS, CMP, LIPID, URIC #### [facility] [address] [place] [address] Dr. Sarmad Patino MCH (RBC) [Entitic mass] 29.1 pg Normal 26.7-34.0 [facility] Comment on above: Performed By: #### D DAVIDSON, MG, PHOS, CMP, LIPID, URIC #### [facility] [address] [place] [address] Dr. Sarmad Patino MCHC (RBC) [Mass/Vol] 33.1 g/dL Normal 29.9-35.2 [facility] Comment on above: Performed By: #### D DAVIDSON, MG, PHOS, CMP, LIPID, URIC #### [facility] [address] [place] [address] Dr. Sarmad Patino MCV (RBC) [Entitic vol] 88.0 fL Normal 81.0-99.0 [facility] Comment on above: Performed By: #### D DAVIDSON, MG, PHOS, CMP, LIPID, URIC #### [facility] [address] [place] [address] Dr. Sarmad Patino MONO # 0.9 103/ul Critically high 0.3-0.8 [facility] Comment on above: Performed By: #### D DAVIDSON, MG, PHOS, CMP, LIPID, URIC #### [facility] [address] [place] [address] Dr. Sarmad Patino Monocytes/100 WBC (Bld) 10.2 % Normal 1.7-12.0 [facility] Comment on above: Performed By: #### D DAVIDSON, MG, PHOS, CMP, LIPID, URIC #### [facility] [address] [place] [address] Dr. Sarmad Patino NEUT # 6.1 103/ul Normal 1.4-6.5 [facility] Comment on above: Performed By: #### D DAVIDSON, MG, PHOS, CMP, LIPID, URIC #### [facility] [address] [place] [address] Dr. Sarmad Patino Neutrophils/100 WBC (Bld) 72.4 % Normal 43.0-75.0 [facility] Comment on above: Performed By: #### D DAVIDSON, MG, PHOS, CMP, LIPID, URIC #### [facility] [address] [address] [address] Sarmad Patino Platelet mean volume (Bld) [Entitic vol] 11.1 fL Normal 9.5-13.5 [facility] Comment on above: Performed By: #### D DAVIDSON, MG, PHOS, CMP, LIPID, URIC #### [facility] [address] [address] [address] Sarmad Patino PLT 213 103/ul Normal 150-450 [facility] Comment on above: Performed By: #### D DAVIDSON, MG, PHOS, CMP, LIPID, URIC #### [facility] [address] [address] [address] Sarmad Patino RBC 5.40 106/ul Normal 4.20-5.40 [facility] Comment on above: Performed By: #### D DAVIDSON, MG, PHOS, CMP, LIPID, URIC #### [facility] [address] [address] [address] Sarmad Patino WBC 8.4 103/ul Normal 4.0-11.0 [facility] Comment on above: Performed By: #### D DAVIDSON, MG, PHOS, CMP, LIPID, URIC #### [facility] [address] [address] [address] Sarmad Patino LIPID PROFILEon 10-08-2021 CHOL-HDL RATIO NORM SEE BELOW Normal [facility] Comment on above: Result Comment: 3.3 - 4.4 LOW RISK 4.4 - 7.1 AVERAGE RISK 7.1 - 11.0 MODERATE RISK >11.0 HIGH RISK Performed By: #### D DAVIDSON, MG, PHOS, CMP, LIPID, URIC #### [facility] [address] [address] [address] Sarmad Patino Cholesterol [Mass/Vol] 155 mg/dL Normal <=200 [facility] Comment on above: Performed By: #### D DAVIDSON, MG, PHOS, CMP, LIPID, URIC #### [facility] [address] [address] [address] Sarmad Patino Cholesterol in HDL [Mass/Vol] 49 mg/dL Normal 40-60 [facility] Comment on above: Performed By: #### D DAVIDSON, MG, PHOS, CMP, LIPID, URIC #### [facility] [address] [address] [address] Sarmad Patino Cholesterol in LDL [Mass/Vol] 73.8 mg/dL Normal [facility] Comment on above: Performed By: #### D DAVIDSON, MG, PHOS, CMP, LIPID, URIC #### [facility] [address] [address] [address] Sarmad Patino Cholesterol.total/Cho lesterol in HDL [Mass ratio] 3.2 {ratio} Normal [facility] Comment on above: Performed By: #### D DAVIDSON, MG, PHOS, CMP, LIPID, URIC #### [facility] [address] [address] [address] Sarmad Patino HDL NORMAL > or = 60 mg/dl - LO W CARDIOVASCULAR RISK <40 mg/dl - HIGH CARDIOVASCULAR RISK Normal [facility] Comment on above: Performed By: #### D DAVIDSON, MG, PHOS, CMP, LIPID, URIC #### [facility] [address] [address] [address] Sarmad Patino LDL CALC NORMAL SEE BELOW Normal [facility] Comment on above: Result Comment: <100 mg/dl OPTIMAL 100 - 129 mg/dl NEAR OR ABOVE OPTIMAL 130 - 159 mg/dl BORDERLINE HIGH 160 - 189 mg/dl HIGH >190 mg/dl VERY HIGH Performed By: #### D DAVIDSON, MG, PHOS, CMP, LIPID, URIC #### [facility] [address] [address] [address] Sarmad Patino Triglyceride [Mass/Vol] 161 mg/dL Critically high <=150 [facility] Comment on above: Performed By: #### D DAVIDSON, MG, PHOS, CMP, LIPID, URIC #### [facility] [address] [address] [address] Sarmad Patino VLDL CALC 32.2 mg/dL Normal [facility] Comment on above: Performed By: #### D DAVIDSON, MG, PHOS, CMP, LIPID, URIC #### [facility] [address] [address] [address] Sarmad Patino MAGNESIUMon 10-08-2021 Magnesium [Mass/Vol] 1.6 mg/dL Critically low 1.8-2.4 [facility] Comment on above: Performed By: #### U MAXI, LIPID, MG, CMP, DBIL, PHOS #### [facility] [address] [address] [address] Sarmad Patino PHOSPHORUSon 10-08-2021 Phosphate [Mass/Vol] 3.5 mg/dL Normal 2.6-4.7 [facility] Comment on above: Performed By: #### U MAXI, LIPID, MG, CMP, DBIL, PHOS #### [facility] [address] [address] [address] Sarmad Patino PROF 14(COMP METB)on 022 Albumin [Mass/Vol] 3.6 g/dL Normal 3.4-5.0 [facility] Comment on above: Performed By: #### D DAVIDSON, MG, PHOS, CMP, LIPID, URIC #### [facility] [address] [place] [address] Dr. Sarmad Patino Albumin/Globulin [Mass ratio] 0.9 {ratio} Normal [facility] Comment on above: Performed By: #### D DAVIDSON, MG, PHOS, CMP, LIPID, URIC #### [facility] [address] [place] [address] Dr. Sarmad Patino ALP [Catalytic activity/Vol] 150 U/L Critically high 46-116 [facility] Comment on above: Performed By: #### D DAVIDSON, MG, PHOS, CMP, LIPID, URIC #### [facility] [address] [address] [address] Sarmad Patino ALT [Catalytic activity/Vol] 21 U/L Normal 14-59 [facility] Comment on above: Performed By: #### D DAVIDSON, MG, PHOS, CMP, LIPID, URIC #### [facility] [address] [address] [address] Sarmad Patino Anion gap [Moles/Vol] 14.0 mmol/L Normal [facility] Comment on above: Performed By: #### D DAVIDSON, MG, PHOS, CMP, LIPID, URIC #### [facility] [address] [address] [address] Sarmad Patino AST [Catalytic activity/Vol] 13 U/L Critically low 15-37 [facility] Comment on above: Performed By: #### D DAVIDSON, MG, PHOS, CMP, LIPID, URIC #### [facility] [address] [address] [address] Sarmad Patino Bilirubin [Mass/Vol] 0.5 mg/dL Normal 0.2-1.0 [facility] Comment on above: Performed By: #### D DAVIDSON, MG, PHOS, CMP, LIPID, URIC #### [facility] [address] [address] [address] Sarmad Patino Calcium [Mass/Vol] 9.8 mg/dL Normal 8.5-10.1 [facility] Comment on above: Performed By: #### D DAVIDSON, MG, PHOS, CMP, LIPID, URIC #### [facility] [address] [address] [address] Sarmad Patino Chloride [Moles/Vol] 105 mmol/L Normal 98-107 [facility] Comment on above: Performed By: #### D DAVIDSON, MG, PHOS, CMP, LIPID, URIC #### [facility] [address] [place] [address] Dr. Sarmad Patino CO2 [Moles/Vol] 25.9 mmol/L Normal 21.0-32.0 [facility] Comment on above: Performed By: #### D DAVIDSON, MG, PHOS, CMP, LIPID, URIC #### [facility] [address] [address] [address] Sarmad Patino Creatinine [Mass/Vol] 0.81 mg/dL Normal 0.55-1.02 [facility] Comment on above: Performed By: #### D DAVIDSON, MG, PHOS, CMP, LIPID, URIC #### [facility] [address] [place] [address] Dr. Sarmad Patino EGFR-AF PUERTO RICAN >60 Normal >=60 [facility] Comment on above: Performed By: #### D DAVIDSON, MG, PHOS, CMP, LIPID, URIC #### [facility] [address] [address] [address] Sarmad Patino EGFR-NON AF PUERTO RICAN >60 Normal >=60 [facility] Comment on above: Performed By: #### D DAVIDSON, MG, PHOS, CMP, LIPID, URIC #### [facility] [address] [address] [address] Sarmad Patino Globulin (S) [Mass/Vol] 3.8 g/dL Normal [facility] Comment on above: Performed By: #### D DAVIDSON, MG, PHOS, CMP, LIPID, URIC #### [facility] [address] [address] [address] Sarmad Patino Glucose [Mass/Vol] 101 mg/dL Normal 74-106 [facility] Comment on above: Performed By: #### D DAVIDSON, MG, PHOS, CMP, LIPID, URIC #### [facility] [address] [address] [address] Sarmad Patino Potassium [Moles/Vol] 3.9 mmol/L Normal 3.5-5.1 [facility] Comment on above: Performed By: #### D DAVIDSON, MG, PHOS, CMP, LIPID, URIC #### [facility] [address] [address] [address] Sarmad Patino Protein [Mass/Vol] 7.4 g/dL Normal 6.4-8.2 [facility] Comment on above: Performed By: #### D DAVIDSON, MG, PHOS, CMP, LIPID, URIC #### [facility] [address] [address] [address] Sarmad Patino Sodium [Moles/Vol] 141 mmol/L Normal 136-145 [facility] Comment on above: Performed By: #### D DAVIDSON, MG, PHOS, CMP, LIPID, URIC #### [facility] [address] [address] [address] Sarmad Patino Urea nitrogen [Mass/Vol] 18.0 mg/dL Normal 7.0-18.0 [facility] Comment on above: Performed By: #### D DAVIDSON, MG, PHOS, CMP, LIPID, URIC #### [facility] [address] [address] [address] Sarmad Patino Urea nitrogen/Creatinine [Mass ratio] 22.2 mg/mg Normal [facility] Comment on above: Performed By: #### D DAVIDSON, MG, PHOS, CMP, LIPID, URIC #### [facility] [address] [address] [address] Sarmad Patino URIC ACID SERUMon 10-08-2021 Urate [Mass/Vol] 4.7 mg/dL Normal 2.6-6.0 [facility] Comment on above: Performed By: #### D DAVIDSON, MG, PHOS, CMP, LIPID, URIC #### [facility] [address] [address] [address] Sarmad Patino EVEROLIMU, WHOLE BLOODon EVEROLIMUS 8.0 ng/mL Normal 3.0-8.0 [facility] Comment on above: Result Comment: Perf ormed by LC-MS/MS technology. Performed By: #### U MAXI, LIPID, MG, CMP, DBIL, PHOS #### [facility] [address] [address] [address] Sarmad Patino FK506 (TACROLIMUS) WHOLE BLO ODon 09-14-2021 Tacrolimus (FK506), Blood 9.3 ng/mL Normal 2.0-20.0 [facility] Comment on above: Result Comment: Trou gh (immediately following transplant) 15.0 . Trough (steady state, 2 weeks or more after transplant): 3.0 - 8.0 . Performed by LC-MS/MS technology. Performed By: #### U MAXI, LIPID, MG, CMP, DBIL, PHOS #### [facility] [address] [address] [address] Sarmad Patino BK VIRUS PCR QUANTon 022 BKV DNA QUANT PCR PLASMA Negative Normal Negative [facility] Comment on above: Result Comment: No B K DNA detected. . The linear range of the assay is 22 - 100,000,000 IU/mL. Performed By: #### D DAVIDSON, MG, PHOS, CMP, LIPID, URIC #### [facility] [address] [address] [address] Sarmad Patino Log10 BKV DNA Plasma Normal [facility] Comment on above: Performed By: #### D DAVIDSON, MG, PHOS, CMP, LIPID, URIC #### [facility] [address] [address] [address] Sarmad Patino BILIRUBIN CONJUGATED (DIRECT )on 09-10-2021 BILI, CONJUGATED 0.1 mg/dL Normal 0.0-0.2 [facility] Comment on above: Performed By: #### D DAVIDSON, MG, PHOS, CMP, LIPID, URIC #### [facility] [address] [address] [address] Sarmad Patino CBC AUTO DIFFon 09-10-2021 BASO # 0.0 103/ul Normal 0.0-0.1 [facility] Comment on above: Performed By: #### D DAVIDSON, MG, PHOS, CMP, LIPID, URIC #### [facility] [address] [address] [address] Sarmad Patino Basophils/100 WBC (Bld) 0.1 % Critically low 0.2-2.0 [facility] Comment on above: Performed By: #### D DAVIDSON, MG, PHOS, CMP, LIPID, URIC #### [facility] [address] [address] [address] Sarmad Patino EO # 0.2 103/ul Normal 0.0-0.7 [facility] Comment on above: Performed By: #### D DAVIDSON, MG, PHOS, CMP, LIPID, URIC #### [facility] [address] [address] [address] Sarmad Patino Eosinophils/100 WBC (Bld) 2.3 % Normal 0.9-7.0 [facility] Comment on above: Performed By: #### D DAVIDSON, MG, PHOS, CMP, LIPID, URIC #### [facility] [address] [place] [address] Dr. Sarmad Patino Erythrocyte distribution width (RBC) [Ratio] 13.6 % Normal 11.0-15.0 [facility] Comment on above: Performed By: #### D DAVIDSON, MG, PHOS, CMP, LIPID, URIC #### [facility] [address] [place] [address] Dr. Sarmad Patino Hematocrit (Bld) [Volume fraction] 45.1 % Normal 36.0-48.0 [facility] Comment on above: Performed By: #### D DAVIDSON, MG, PHOS, CMP, LIPID, URIC #### [facility] [address] [place] [address] Dr. Sarmad Patino Hemoglobin (Bld) [Mass/Vol] 14.7 g/dL Normal 12.0-16.0 [facility] Comment on above: Performed By: #### D DAVIDSON, MG, PHOS, CMP, LIPID, URIC #### [facility] [address] [place] [address] Dr. Sarmad Patino IG # 0.03 10e3/ul Normal 0.00-0.03 [facility] Comment on above: Performed By: #### D DAVIDSON, MG, PHOS, CMP, LIPID, URIC #### [facility] [address] [place] [address] Dr. Sarmad Patino IG % 0.4 % Normal 0.0-0.5 [facility] Comment on above: Performed By: #### D DAVIDSON, MG, PHOS, CMP, LIPID, URIC #### [facility] [address] [place] [address] Dr. Sarmad Patino LYMPH # 1.3 103/ul Normal 1.2-3.8 [facility] Comment on above: Performed By: #### D DAVIDSON, MG, PHOS, CMP, LIPID, URIC #### [facility] [address] [place] [address] Dr. Sarmad Patino Lymphocytes/100 WBC (Bld) 18.9 % Critically low 20.5-60.0 [facility] Comment on above: Performed By: #### D DAVIDSON, MG, PHOS, CMP, LIPID, URIC #### [facility] [address] [place] [address] Dr. Sarmad Patino MANUAL DIFF REQ NO Normal [facility] Comment on above: Performed By: #### D DAVIDSON, MG, PHOS, CMP, LIPID, URIC #### [facility] [address] [place] [address] Dr. Sarmad Patino MCH (RBC) [Entitic mass] 29.0 pg Normal 26.7-34.0 [facility] Comment on above: Performed By: #### D DAVIDSON, MG, PHOS, CMP, LIPID, URIC #### [facility] [address] [place] [address] Dr. Sarmad Patino MCHC (RBC) [Mass/Vol] 32.6 g/dL Normal 29.9-35.2 [facility] Comment on above: Performed By: #### D DAVIDSON, MG, PHOS, CMP, LIPID, URIC #### [facility] [address] [place] [address] Dr. Sarmad Patino MCV (RBC) [Entitic vol] 89.0 fL Normal 81.0-99.0 [facility] Comment on above: Performed By: #### D DAVIDSON, MG, PHOS, CMP, LIPID, URIC #### [facility] [address] [place] [address] Dr. Sarmad Patino MONO # 0.8 103/ul Normal 0.3-0.8 [facility] Comment on above: Performed By: #### D DAVIDSON, MG, PHOS, CMP, LIPID, URIC #### [facility] [address] [place] [address] Dr. Sarmad Patino Monocytes/100 WBC (Bld) 11.9 % Normal 1.7-12.0 [facility] Comment on above: Performed By: #### D DAVIDSON, MG, PHOS, CMP, LIPID, URIC #### [facility] [address] [place] [address] Dr. Sarmad Patino NEUT # 4.6 103/ul Normal 1.4-6.5 [facility] Comment on above: Performed By: #### D DAVIDSON, MG, PHOS, CMP, LIPID, URIC #### [facility] [address] [place] [address] Dr. Sarmad Patino Neutrophils/100 WBC (Bld) 66.4 % Normal 43.0-75.0 [facility] Comment on above: Performed By: #### D DAVIDSON, MG, PHOS, CMP, LIPID, URIC #### [facility] [address] [address] [address] Sarmad Patino Platelet mean volume (Bld) [Entitic vol] 10.6 fL Normal 9.5-13.5 [facility] Comment on above: Performed By: #### D DAVIDSON, MG, PHOS, CMP, LIPID, URIC #### [facility] [address] [place] [address] Dr. Sarmad Patino PLT 233 103/ul Normal 150-450 [facility] Comment on above: Performed By: #### D DAVIDSON, MG, PHOS, CMP, LIPID, URIC #### [facility] [address] [place] [address] Dr. Sarmad Patino RBC 5.07 106/ul Normal 4.20-5.40 [facility] Comment on above: Performed By: #### D DAVIDSON, MG, PHOS, CMP, LIPID, URIC #### [facility] [address] [place] [address] Dr. Sarmad Patino WBC 6.9 103/ul Normal 4.0-11.0 [facility] Comment on above: Performed By: #### D DAVIDSON, MG, PHOS, CMP, LIPID, URIC #### [facility] [address] [place] [address] Dr. Sarmad Patino GLYCOHEMOGLOBIN A1Con 2021 ADA RECOMMENDATION SEE BELOW Normal [facility] Comment on above: Result Comment: ADA RECOMMENDED LIMIT 4.0 - 6.0 ADA THERAPEUTIC TARGET < 7.0 ACTION SUGGESTED > 7.0 Performed By: #### D DAVIDSON, MG, PHOS, CMP, LIPID, URIC #### [facility] [address] [place] [address] Dr. Sarmad Patino Glucose [Mass/Vol] 120 mg/dL Normal [facility] Comment on above: Performed By: #### D DAVIDSON, MG, PHOS, CMP, LIPID, URIC #### [facility] [address] [place] [address] Dr. Sarmad Patino HbA1c (Bld) [Mass fraction] 5.8 % Normal 4.5-6.2 [facility] Comment on above: Performed By: #### D DAVIDSON, MG, PHOS, CMP, LIPID, URIC #### [facility] [address] [place] [address] Dr. Sarmad Patino LIPID PROFILEon 09-10-2021 CHOL-HDL RATIO NORM SEE BELOW Normal [facility] Comment on above: Result Comment: 3.3 - 4.4 LOW RISK 4.4 - 7.1 AVERAGE RISK 7.1 - 11.0 MODERATE RISK >11.0 HIGH RISK Performed By: #### D DAVIDSON, MG, PHOS, CMP, LIPID, URIC #### [facility] [address] [address] [address] Sarmad Patino Cholesterol [Mass/Vol] 150 mg/dL Normal <=200 [facility] Comment on above: Performed By: #### D DAVIDSON, MG, PHOS, CMP, LIPID, URIC #### [facility] [address] [address] [address] Sarmad Patino Cholesterol in HDL [Mass/Vol] 47 mg/dL Normal 40-60 [facility] Comment on above: Performed By: #### D DAVIDSON, MG, PHOS, CMP, LIPID, URIC #### [facility] [address] [place] [address] Dr. Sarmad Patino Cholesterol in LDL [Mass/Vol] 78.4 mg/dL Normal [facility] Comment on above: Performed By: #### D DAVIDSON, MG, PHOS, CMP, LIPID, URIC #### [facility] [address] [place] [address] Dr. Sarmad Patino Cholesterol.total/Cho lesterol in HDL [Mass ratio] 3.2 {ratio} Normal [facility] Comment on above: Performed By: #### D DAVIDSON, MG, PHOS, CMP, LIPID, URIC #### [facility] [address] [address] [address] Sarmad Patino HDL NORMAL > or = 60 mg/dl - LO W CARDIOVASCULAR RISK <40 mg/dl - HIGH CARDIOVASCULAR RISK Normal [facility] Comment on above: Performed By: #### D DAVIDSON, MG, PHOS, CMP, LIPID, URIC #### [facility] [address] [address] [address] Sarmad Patino LDL CALC NORMAL SEE BELOW Normal [facility] Comment on above: Result Comment: <100 mg/dl OPTIMAL 100 - 129 mg/dl NEAR OR ABOVE OPTIMAL 130 - 159 mg/dl BORDERLINE HIGH 160 - 189 mg/dl HIGH >190 mg/dl VERY HIGH Performed By: #### D DAVIDSON, MG, PHOS, CMP, LIPID, URIC #### [facility] [address] [address] [address] Sarmad Patino Triglyceride [Mass/Vol] 123 mg/dL Normal <=150 [facility] Comment on above: Performed By: #### D DAVIDSON, MG, PHOS, CMP, LIPID, URIC #### [facility] [address] [address] [address] Sarmad Patino VLDL CALC 24.6 mg/dL Normal [facility] Comment on above: Performed By: #### D DAVIDSON, MG, PHOS, CMP, LIPID, URIC #### [facility] [address] [place] [address] Dr. Sarmad Patino MAGNESIUMon 09-10-2021 Magnesium [Mass/Vol] 1.5 mg/dL Critically low 1.8-2.4 [facility] Comment on above: Performed By: #### D DAVIDSON, MG, PHOS, CMP, LIPID, URIC #### [facility] [address] [place] [address] Dr. Sarmad Patino PHOSPHORUSon 09-10-2021 Phosphate [Mass/Vol] 3.8 mg/dL Normal 2.6-4.7 [facility] Comment on above: Performed By: #### D DAVIDSON, MG, PHOS, CMP, LIPID, URIC #### [facility] [address] [place] [address] Dr. Sarmad Patino PROF 14(COMP METB)on 022 Albumin [Mass/Vol] 3.4 g/dL Normal 3.4-5.0 [facility] Comment on above: Performed By: #### D DAVIDSON, MG, PHOS, CMP, LIPID, URIC #### [facility] [address] [place] [address] Dr. Sarmad Patino Albumin/Globulin [Mass ratio] 0.9 {ratio} Normal [facility] Comment on above: Performed By: #### D DAVIDSON, MG, PHOS, CMP, LIPID, URIC #### [facility] [address] [place] [address] Dr. Sarmad Patino ALP [Catalytic activity/Vol] 143 U/L Critically high 46-116 [facility] Comment on above: Performed By: #### D DAVIDSON, MG, PHOS, CMP, LIPID, URIC #### [facility] [address] [place] [address] Dr. Sarmad Patino ALT [Catalytic activity/Vol] 19 U/L Normal 14-59 [facility] Comment on above: Performed By: #### D DAVIDSON, MG, PHOS, CMP, LIPID, URIC #### [facility] [address] [place] [address] Dr. Sarmad Patino Anion gap [Moles/Vol] 13.4 mmol/L Normal [facility] Comment on above: Performed By: #### D DAVIDSON, MG, PHOS, CMP, LIPID, URIC #### [facility] [address] [place] [address] Dr. Sarmad Patino AST [Catalytic activity/Vol] 24 U/L Normal 15-37 [facility] Comment on above: Performed By: #### D DAVIDSON, MG, PHOS, CMP, LIPID, URIC #### [facility] [address] [place] [address] Dr. Sarmad Patino Bilirubin [Mass/Vol] 0.4 mg/dL Normal 0.2-1.0 [facility] Comment on above: Performed By: #### D DAVIDSON, MG, PHOS, CMP, LIPID, URIC #### [facility] [address] [place] [address] Dr. Sarmad Patino Calcium [Mass/Vol] 9.3 mg/dL Normal 8.5-10.1 [facility] Comment on above: Performed By: #### D DAVIDSON, MG, PHOS, CMP, LIPID, URIC #### [facility] [address] [address] [address] Sarmad Patino Chloride [Moles/Vol] 106 mmol/L Normal 98-107 [facility] Comment on above: Performed By: #### D DAVIDSON, MG, PHOS, CMP, LIPID, URIC #### [facility] [address] [address] [address] Sarmad Patino CO2 [Moles/Vol] 25.5 mmol/L Normal 21.0-32.0 [facility] Comment on above: Performed By: #### D DAVIDSON, MG, PHOS, CMP, LIPID, URIC #### [facility] [address] [address] [address] Sarmad Patino Creatinine [Mass/Vol] 0.85 mg/dL Normal 0.55-1.02 [facility] Comment on above: Performed By: #### D DAVIDSON, MG, PHOS, CMP, LIPID, URIC #### [facility] [address] [address] [address] Sarmad Patino EGFR-AF PUERTO RICAN >60 Normal >=60 [facility] Comment on above: Performed By: #### D DAVIDSON, MG, PHOS, CMP, LIPID, URIC #### [facility] [address] [place] [address] Dr. Sarmad Patino EGFR-NON AF PUERTO RICAN >60 Normal >=60 [facility] Comment on above: Performed By: #### D DAVIDSON, MG, PHOS, CMP, LIPID, URIC #### [facility] [address] [address] [address] Sarmad Patino Globulin (S) [Mass/Vol] 3.8 g/dL Normal [facility] Comment on above: Performed By: #### D DAVIDSON, MG, PHOS, CMP, LIPID, URIC #### [facility] [address] [address] [address] Sarmad Patino Glucose [Mass/Vol] 100 mg/dL Normal 74-106 [facility] Comment on above: Performed By: #### D DAVIDSON, MG, PHOS, CMP, LIPID, URIC #### [facility] [address] [address] [address] Sarmad Patino Potassium [Moles/Vol] 3.9 mmol/L Normal 3.5-5.1 [facility] Comment on above: Performed By: #### D DAVIDSON, MG, PHOS, CMP, LIPID, URIC #### [facility] [address] [place] [address] Dr. Sarmad Patino Protein [Mass/Vol] 7.2 g/dL Normal 6.4-8.2 [facility] Comment on above: Performed By: #### D DAVIDSON, MG, PHOS, CMP, LIPID, URIC #### [facility] [address] [address] [address] Sarmad Patino Sodium [Moles/Vol] 141 mmol/L Normal 136-145 [facility] Comment on above: Performed By: #### D DAVIDSON, MG, PHOS, CMP, LIPID, URIC #### [facility] [address] [place] [address] Dr. Sarmad Patino Urea nitrogen [Mass/Vol] 16.0 mg/dL Normal 7.0-18.0 [facility] Comment on above: Performed By: #### D DAVIDSON, MG, PHOS, CMP, LIPID, URIC #### [facility] [address] [place] [address] Dr. Sarmad Patino Urea nitrogen/Creatinine [Mass ratio] 18.8 mg/mg Normal [facility] Comment on above: Performed By: #### D DAVIDSON, MG, PHOS, CMP, LIPID, URIC #### [facility] [address] [place] [address] Dr. Sarmad Patino URIC ACID SERUMon 09-10-2021 Urate [Mass/Vol] 4.8 mg/dL Normal 2.6-6.0 [facility] Comment on above: Performed By: #### D DAVIDSON, MG, PHOS, CMP, LIPID, URIC #### [facility] [address] [place] [address] Dr. Sarmad Patino Urinalysis - AUTOMATEDon Appearance (U) cloudy [employer] Other Bilirubin Ql (U) Negative [employer] Other Color (U) pale yellow [employer] Other Glucose Ql (U) Negative [employer] Other Hemoglobin Ql (U) moderate [employer] Other Ketones Ql (U) Negative [employer] Other Leukocyte esterase Test strip Ql (U) moderate [employer] Other Nitrite Ql (U) Negative [employer] Other pH (U) 7.0 [pH] [employer] Other Protein Ql (U) Negative [employer] Other Specific gravity (U) [Rel density] 1.010 [employer] Other Urobilinogen (U) [Mass/Vol] 0.2 mg/dL [employer] Other Urinalysis - AUTOMATED [employer] Other Urine Cultureon 08-14-2021 Urine Culture 100,000 [employer] Other Urine Culture <16 Susceptible [employer] Other Urine Culture >16 Resistant [employer] Other Urine Culture <4 Susceptible [employer] Other Urine Culture <2 Susceptible [employer] Other Urine Culture <1 Susceptible [employer] Other Urine Culture <0.5 Susceptible [employer] Other Urine Culture <32 Susceptible [employer] Other Urine Culture <2/38 Susceptible [employer] Other Bacteria identified Cx Nom (U) Reason for Exam Dysuria Urine ORGANISM: Klebsiella pneumoniae (O:KLEPNE) Council Count 100,000 Aerobic SHYLA Charge (NUC86) ---- [...] RESISTANT TO ALL B-LACTAM DRUGS. PERFORMED BY: [place] [address] PATHOLOGIST ROLL UP HELPER LOVELY COLE M.D. Normal [facility] Comment on above: Performed By: #### C UU #### [facility] [address] *URINE CULTUREon 12-31-2017 Bacteria identified in Urine by Culture Clinical Report: (D) Specimen: URINE Collected: 12/31/2017 13:40 Status: Final Last Updated: 01/04/2018 12:38 ISO (Final) Diphtheroids >100,000 Cfu/Ml 2 Morphologies ISO (Final) Aerococcus urinae 50,000 - 100,000 Cfu/mL Result changed by ISCHB on 01/04/2018 12:38. The previous result was: ISO (Prelim) Normal [facility] Comment on above: Performed By: #### 4 1000, 96644, 13502, 40776, 46629, 86866 ####[facility] CBC W/DIFFon 12-25-2017 ABS BASOPHILS 0.0 10*3/uL Normal 0.0-0.[address] [facility] Comment on above: Performed By: #### 5 0103 ####[facility] ABS IMM GRANS 0.0 10*3/uL Normal 0.0-0.[address] [facility] Comment on above: Performed By: #### 5 0103 ####[address] ABS NEUTROPHILS 5.0 10*3/uL Normal 1.6-7.6 The [facility] Comment on above: Performed By: #### 5 0103 ####[address] [address] Basophils Auto #/vol (Bld) 0.1 % Normal 0.0-1.0 [facility] Comment on above: Performed By: #### 5 0103 ####[facility] Eosinophils Auto #/vol (Bld) 0.1 10*3/uL Normal 0.0-0.5 [facility] Comment on above: Performed By: #### 5 0103 ####[address] Eosinophils/100 WBC Auto (Bld) 1.6 % Normal 0.0-6.0 [facility] Comment on above: Performed By: #### 5 0103 ####[place] [id number], [place] Erythrocyte distribution width Auto Ratio (RBC) 14.6 % Normal 11.5-15.0 [facility] Comment on above: Performed By: #### 5 0103 ####[facility] Hematocrit Auto Volume Fraction (Bld) 44.9 % Normal 36.0-45.[address] [facility] Comment on above: Performed By: #### 5 0103 ####[facility] Hemoglobin mass conc (Bld) 14.9 g/dL Normal 12.0-15.0 [facility] Comment on above: Performed By: #### 5 3 ####[address] IMMATURE GRANS 0.4 % Normal 0.0-1.[address] [facility] Comment on above: Performed By: #### 3 ####[facility] Lymphocytes Auto #/vol (Bld) 1.0 10*3/uL Low 1.2-4.0 [facility] Comment on above: Performed By: #### 5 3 ####[facility] Lymphocytes/100 WBC Auto (Bld) 14.9 % Low 20.0-45.0 [facility] Comment on above: Performed By: #### 5 3 ####[facility] MCH Auto Entitic mass (RBC) 28.8 pg Normal 27.0-33.0 [facility] Comment on above: Performed By: #### 5 3 ####[facility] [place] [address], [place] MCHC Auto mass conc (RBC) 33.2 g/dL Normal 32.0-35.0 [facility] Comment on above: Performed By: #### 5 0103 ####[facility].[address] MCV Auto Entitic volume (RBC) 86.7 fL Normal 82.0-98.0 [facility] Comment on above: Performed By: #### 0103 ####[facility].[address] Monocytes Auto #/vol (Bld) 0.7 10*3/uL Normal 0.1-1.0 [facility] Comment on above: Performed By: #### 102 ####[facility].[address] MONOS 10.6 % Normal 5.0-12.0 [facility] Comment on above: Performed By: #### 0103 ####[facility] Neutrophils/100 WBC Auto (Bld) 72.4 % High 40.0-72.0 [facility] Comment on above: Performed By: #### 3 ####[facility].[address] Nucleated RBC/100 WBC Ratio (Bld) 0 % Normal 0-0 [facility] Comment on above: Performed By: #### 3 ####[facility] [place] [address], [facility] PLAT CNT 203 10*3/uL Normal 150-400 The [facility] Comment on above: Performed By: #### 3 ####[facility].[address] RBC Auto #/vol (Bld) 5.18 10*6/uL High 3.80-5.00 Th e [facility] Comment on above: Performed By: #### 5 0103 ####[facility].[address] WBC Auto #/vol (Bld) 6.90 10*3/uL Normal 4.00-10.60 Th e [facility] Comment on above: Performed By: #### 5 0103 ####[facility].[address] COMP METABOLIC PANELon 12-25 Albumin mass conc 4.3 g/dL Normal 3.5-5.7 The [facility] Comment on above: Performed By: #### 4 1000, 23344, 12769, 82370, 35851, 03304 ####[place] [address] [facility].[address] ALKALINE PHOSPH 118 IU/L High 34-104 The [facility] Comment on above: Performed By: #### 4 1000, 89678, 60585, 00605, 03942, 89220 ####[facility].[address] ALT enzyme act/vol 11 U/L Normal 7-52 The [facility] Comment on above: Performed By: #### 4 1000, 18582, 95828, 38383, 99730, 04362 ####[facility].[address] AST enzyme act/vol 17 U/L Normal 13-39 The [facility] Comment on above: Performed By: #### 4 1000, 16840, 36579, 70139, 42110, 71390 ####[facility].[address] Bilirubin mass conc 0.4 mg/dL Normal 0.3-1.0 [facility] Comment on above: Performed By: #### 4 1000, 14252, 25066, 67954, 39790, 26059 ####[facility] [place] [address], [place] Calcium mass conc 9.8 mg/dL Normal 8.6-10.3 [facility] Comment on above: Performed By: #### 4 1000, 75391, 67865, 25562, 90513, 00753 ####[facility] [place] [address], [place] Chloride molar conc 104 mmol/L Normal 98-107 The [facility] Comment on above: Performed By: #### 4 1000, 53854, 13448, 15242, 49932, 28168 ####[facility] [place] [address], [place] CO2 molar conc 27 mmol/L Normal 21-[address] [facility] Comment on above: Performed By: #### 4 1000, 73198, 60063, 02275, 92718, 88429 ####[facility] [place] [address], [place] Creatinine mass conc 0.76 mg/dL Normal 0.60-1.20 [facility] Comment on above: Performed By: #### 4 1000, 93480, 72481, 45871, 74353, 54805 ####[facility] [place] [address], [place] GFR/1.73 sq M predicted among blacks MDRD vol rate/area (S/P/Bld) mL/min/{1.73_m2} Normal >60 The [facility] Comment on above: Performed By: #### 4 1000, 84850, 76856, 98953, 98931, 69701 ####[facility] [place] [address], [place] GFR/1.73 sq M predicted among non-blacks MDRD vol rate/area (S/P/Bld) mL/min/{1.73_m2} Normal >60 The [facility] Comment on above: Performed By: #### 4 1000, 57498, 03149, 39359, 77134, 02754 ####[facility] [place] [address], [facility] Glucose mass conc 94 mg/dL Normal 70-100 The [facility] Comment on above: Performed By: #### 4 1000, 85241, 49733, 55108, 10637, 50764 ####[facility] [place] [address], [facility] Potassium molar conc 3.9 mmol/L Normal 3.5-5.1 [facility] Comment on above: Performed By: #### 4 1000, 88816, 57436, 16052, 95515, 75623 ####[facility] [place] [address], [facility] Protein mass conc 7.2 g/dL Normal 6.0-8.3 [facility] Comment on above: Performed By: #### 4 1000, 90442, 24172, 59823, 98160, 04435 ####[facility] [place] [address], [facility] Sodium molar conc 140 mmol/L Normal 136-145 [facility] Comment on above: Performed By: #### 4 1000, 42268, 85348, 69512, 89227, 37885 ####[facility] [place] [address], [facility] Urea nitrogen mass conc 15 mg/dL Normal 7-25 The [facility] Comment on above: Performed By: #### 4 1000, 57073, 31221, 71343, 24627, 56674 ####[facility] [place] [address], [facility] DIRECT BILIon 12-25-2017 Bilirubin.direct mass conc 0.1 mg/dL Normal 0.0-0.2 The [facility] Comment on above: Performed By: #### 4 1000, 38382, 36926, 64203, 47840, 03655 ####[facility] EVEROLIMUS 80776kp 8 EVEROLIMUS 4.7 ng/mL Normal The [facility] Comment on above: Result Comment: Ther [...] the transplantcenter.Test developed and characteristics determined by [employer]. See Compliance Statement B: [employer]/CSPerformed by [employer],[address] [place] [address] ayk.[email or web address], Leonid Antonio MD - Lab. Director LIPID PROFILEon 12-25-2017 Cholesterol in HDL mass conc 51 mg/dL Normal 23-92 The [facility] Comment on above: Result Comment: Slig ht variation in normal range could be due to gender and/or age.HDL CHOLESTEROL REFERENCE RANGE:20 years and older Cardiovascular Risk> or =60 mg/dL [id number] TO 59 mg/dL Low Risk<40 mg/dL High Risk Performed By: #### 4 5506, 87280, 42791, 65803, 41103, 25001 ####[facility] [facility] [place] [address], [facility] Cholesterol in LDL mass conc 58 mg/dL Normal 0-130 [facility] Comment on above: Result Comment: LDL IS A CALCULATIONLDL IS ONLY VALID IF THE TRIG IS LESS THAN 400. Performed By: #### 4 5506, 27265, 73871, 99583, 31896, 03126 ####[facility] [facility] [place] [address], [facility] Cholesterol mass conc 122 mg/dL Normal 120-200 [facility] Comment on above: Result Comment: CHOL ESTEROL REFERENCE RANGE:20 YEARS AND OLDER CARDIOVASCULAR RISKLess than 200 mg/dl Low Gpub458 to 239 mg/dl Borderline Hkva432 mg/dl and greater High Risk Performed By: #### 4 5506, 91056, 42053, 43372, 94690, 88880 ####[facility] [facility] [place] [address], [facility] Cholesterol.total/Cho lesterol in HDL mass ratio 2.4 {ratio} Normal .0-4.5 [facility] Comment on above: Performed By: #### 4 5506, 24048, 95177, 57358, 40187, 91734 ####[facility] [place] [address], [facility] NON-HDL CHOLESTEROL 71 mg/dL Normal [facility] Comment on above: Performed By: #### 4 5506, 09513, 84164, 10078, 39811, 15402 ####[facility] [facility] [place] [address], [facility] Triglyceride mass conc 65 mg/dL Normal 40-149 The [facility] Comment on above: Result Comment: TRIG LYCERIDE REFERENCE RANGE:20 YEARS AND OLDER CARDIOVASCULAR RISKLESS THAN 150 mg/dl LOW YFTP833 TO 199 mg/dl BORDERLINE GYUD254 mg/dl AND GREATER HIGH RISK Performed By: #### 4 5506, 47401, 37815, 07926, 65612, 63891 ####[facility] VLDL CHOL 13 mg/dL Normal 0-40 [facility] Comment on above: Performed By: #### 4 5506, 52473, 37021, 68933, 53868, 73377 ####[facility] MAGNESIUM BLOODon 12-25-2017 Magnesium mass conc 1.8 mg/dL Low 1.9-2.7 [facility] Comment on above: Performed By: #### 4 1000, 38634, 87341, 68165, 19611, 61592 ####[facility] [facility].[address] PHOSPHORUS BLOODon 8 Phosphate mass conc 3.4 mg/dL Normal 2.5-5.0 [facility] Comment on above: Performed By: #### 4 5506, 37855, 28778, 08152, 66002, 61172 ####[facility] [facility].[address] TACROLIMUSon 12-25-2017 Tacrolimus mass conc (Bld) 6.4 ng/mL Normal 5.0-20.0 [facility] Comment on above: Result Comment: The [employer] Tacrolimus assay is a delayed one-step immunoassayfor the quantitative determination of tacrolimus in human whole bloodusing the chemiluminescent microparticle immunoassay (CMIA) technologywith flexible assay protocols, referred to as Chemiflex. Performed By: #### 4 1000, 12250, 95565, 86229, 82869, 52646 ####[facility] [facility].[address] URIC ACID BLOODon 12-25-2017 Urate mass conc 4.7 mg/dL Normal 2.3-6.6 The [facility] Comment on above: Performed By: #### 4 5506, 23159, 28581, 53143, 61551, 05436 ####[place] [address] [facility].[address] CBC W/DIFFon 10-30-2017 ABS BASOPHILS 0.0 10*3/uL Normal 0.0-0.[address] [facility] Comment on above: Performed By: #### 4 0847, 15310 ####[address] ABS IMM GRANS 0.0 10*3/uL Normal 0.0-0.[address] [facility] Comment on above: Performed By: #### 4 0156, 24439 ####[address] ABS NEUTROPHILS 4.9 10*3/uL Normal 1.6-7.6 The [facility] Comment on above: Performed By: #### 4 5974, 88318 ####[address] Basophils Auto #/vol (Bld) 0.1 % Normal 0.0-1.0 [facility] Comment on above: Performed By: #### 4 6347, 10368 ####[address] Eosinophils Auto #/vol (Bld) 0.1 10*3/uL Normal 0.0-0.5 [facility] Comment on above: Performed By: #### 4 6341, 15047 ####[address] Eosinophils/100 WBC Auto (Bld) 1.4 % Normal 0.0-6.0 [facility] Comment on above: Performed By: #### 4 4580, 05505 ####[address] [place] [address], [place] Erythrocyte distribution width Auto Ratio (RBC) 14.6 % Normal 11.5-15.0 [facility] Comment on above: Performed By: #### 4 6223, 44613 ####[facility] Hematocrit Auto Volume Fraction (Bld) 46.8 % High 36.0-45.[address] [facility] Comment on above: Performed By: #### 4 4104, 08110 ####[address] Hemoglobin mass conc (Bld) 15.1 g/dL High 12.0-15.0 [facility] Comment on above: Performed By: #### 4 5439, 71983 ####[address] IMMATURE GRANS 0.4 % Normal 0.0-1.[address] [facility] Comment on above: Performed By: #### 4 9029, 95279 ####[address] Lymphocytes Auto #/vol (Bld) 1.2 10*3/uL Normal 1.2-4.0 [facility] Comment on above: Performed By: #### 4 3889, 05682 ####[place] [address] Lymphocytes/100 WBC Auto (Bld) 16.6 % Low 20.0-45.0 [facility] Comment on above: Performed By: #### 4 7090, 03282 ####[facility] MCH Auto Entitic mass (RBC) 29.0 pg Normal 27.0-33.0 [facility] Comment on above: Performed By: #### 4 0628, 84546 ####[facility] MCHC Auto mass conc (RBC) 32.3 g/dL Normal 32.0-35.0 [facility] Comment on above: Performed By: #### 4 3034, 04885 ####[facility] MCV Auto Entitic volume (RBC) 89.8 fL Normal 82.0-98.0 [facility] Comment on above: Performed By: #### 4 4540, 10826 ####[facility] Monocytes Auto #/vol (Bld) 0.8 10*3/uL Normal 0.1-1.0 [facility] Comment on above: Performed By: #### 4 3800, 64310 ####[facility] MONOS 11.9 % Normal 5.0-12.0 [facility] Comment on above: Performed By: #### 4 2637, 74899 ####[facility] Neutrophils/100 WBC Auto (Bld) 69.6 % Normal 40.0-72.0 [facility] Comment on above: Performed By: #### 4 0794, 57166 ####[facility] Nucleated RBC/100 WBC Ratio (Bld) 0 % Normal 0-0 [facility] Comment on above: Performed By: #### 4 9731, 10959 ####[facility] [place] [address], [facility] PLAT CNT 200 10*3/uL Normal 150-400 The [facility] Comment on above: Performed By: #### 4 5154, 79999 ####[facility] [place] [address], [facility] RBC Auto #/vol (Bld) 5.21 10*6/uL High 3.80-5.00 Th e [facility] Comment on above: Performed By: #### 4 6447, 52424 ####[facility] [place] [address], [facility] WBC Auto #/vol (Bld) 7.04 10*3/uL Normal 4.00-10.60 Th e [facility] Comment on above: Performed By: #### 4 6447, 61059 ####[facility] [facility].[address] COMP METABOLIC PANELon 10-30 Albumin mass conc 4.1 g/dL Normal 3.5-5.7 The [facility] Comment on above: Performed By: #### 4 6447, 14553 ####[facility] [facility].[address] ALKALINE PHOSPH 114 IU/L High 34-104 The [facility] Comment on above: Performed By: #### 4 6447, 36996 ####[facility] [facility].[address] ALT enzyme act/vol 16 U/L Normal 7-52 [facility] Comment on above: Performed By: #### 4 6447, 00549 ####[facility] AST enzyme act/vol 18 U/L Normal 13-39 [facility] Comment on above: Performed By: #### 4 6447, 02952 ####[facility] [place] [address], [facility] Bilirubin mass conc 0.4 mg/dL Normal 0.3-1.0 [facility] Comment on above: Performed By: #### 4 6447, 43483 ####[facility] [place] [address], [place] Calcium mass conc 9.7 mg/dL Normal 8.6-10.3 The [facility] Comment on above: Performed By: #### 4 6447, 51664 ####[facility] [place] [address], [place] Chloride molar conc 105 mmol/L Normal 98-107 [facility] Comment on above: Performed By: #### 4 0247, 59278 ####[facility] [place] [address], [place] CO2 molar conc 28 mmol/L Normal 21-[address] [facility] Comment on above: Performed By: #### 4 9500, 32890 ####[facility] [place] [address], [place] Creatinine mass conc 0.82 mg/dL Normal 0.60-1.20 [facility] Comment on above: Performed By: #### 7 9469, 06933 ####[facility] [place] [address], [place] GFR/1.73 sq M predicted among blacks MDRD vol rate/area (S/P/Bld) mL/min/{1.73_m2} Normal >60 The [facility] Comment on above: Performed By: #### 4 0047, 63302 ####[facility] [place] [address], [place] GFR/1.73 sq M predicted among non-blacks MDRD vol rate/area (S/P/Bld) mL/min/{1.73_m2} Normal >60 The [facility] Comment on above: Performed By: #### 4 1332, 52300 ####[facility] Glucose mass conc 90 mg/dL Normal 70-100 The [facility] Comment on above: Performed By: #### 4 6447, 15482 ####[facility] Potassium molar conc 4.1 mmol/L Normal 3.5-5.1 The [facility] Comment on above: Performed By: #### 4 6447, 38711 ####[facility] Protein mass conc 6.9 g/dL Normal 6.0-8.3 The [facility] Comment on above: Performed By: #### 4 6447, 85355 ####[address] Sodium molar conc 138 mmol/L Normal 136-145 The [facility] Comment on above: Performed By: #### 4 6447, 74370 ####[facility] Urea nitrogen mass conc 16 mg/dL Normal 7-25 The [facility] Comment on above: Performed By: #### 4 6447, 02854 ####[place] [address] DIRECT BILIon 10-30-2017 Bilirubin.direct mass conc 0.0 mg/dL Normal 0.0-0.2 The [facility] Comment on above: Performed By: #### 4 5506, 81231, 86852, 65012, 45411, 85743 ####[facility] EVEROLIMUS 23113em 8 EVEROLIMUS 6.0 ng/mL Normal The [facility] Comment on above: Result Comment: Ther [...] the transplantcenter.Test developed and characteristics determined by [facility]. See Compliance Statement B: [employer]/CSPerformed by [employer],[address] [place] [address] rmi.[employer], Leonid Antonio MD - Lab. Director LIPID PROFILEon 10-30-2017 Cholesterol in HDL mass conc 50 mg/dL Normal 23-92 [facility] Comment on above: Result Comment: Slig ht variation in normal range could be due to gender and/or age.HDL CHOLESTEROL REFERENCE RANGE:20 years and older Cardiovascular Risk> or =60 mg/dL Drlghhrup87 TO 59 mg/dL Low Risk<40 mg/dL High Risk Performed By: #### 4 5506, 14881, 70590, 53140, 02002, 27275 ####[facility] [facility] [place] [address], [facility] Cholesterol in LDL mass conc 85 mg/dL Normal 0-130 The [facility] Comment on above: Result Comment: LDL IS A CALCULATIONLDL IS ONLY VALID IF THE TRIG IS LESS THAN 400. Performed By: #### 4 5506, 75730, 92275, 47981, 59759, 94895 ####[facility] [place] [address], [facility] Cholesterol mass conc 152 mg/dL Normal 120-200 The [facility] Comment on above: Result Comment: CHOL ESTEROL REFERENCE RANGE:20 YEARS AND OLDER CARDIOVASCULAR RISKLess than 200 mg/dl Low Ddht886 to 239 mg/dl Borderline Yeer462 mg/dl and greater High Risk Performed By: #### 4 5506, 00833, 61161, 78240, 63190, 58103 ####[facility] [place] [address], [facility] Cholesterol.total/Cho lesterol in HDL mass ratio 3.0 {ratio} Normal .0-4.5 [facility] Comment on above: Performed By: #### 4 5506, 05244, 88184, 95864, 42771, 09408 ####[facility] NON-HDL CHOLESTEROL 102 mg/dL Normal [facility] Comment on above: Performed By: #### 4 5506, 94532, 89525, 40004, 12881, 29183 ####[facility] Triglyceride mass conc 87 mg/dL Normal 40-149 [facility] Comment on above: Result Comment: TRIG LYCERIDE REFERENCE RANGE:20 YEARS AND OLDER CARDIOVASCULAR RISKLESS THAN 150 mg/dl LOW SPRR900 TO 199 mg/dl BORDERLINE QZJM852 mg/dl AND GREATER HIGH RISK Performed By: #### 4 5506, 48129, 22302, 32098, 11330, 32887 ####[facility] [place] [address], [facility] VLDL CHOL 17 mg/dL Normal 0-40 [facility] Comment on above: Performed By: #### 4 5506, 36216, 24871, 06717, 52041, 66898 ####[facility] [place] [address], [facility] MAGNESIUM BLOODon 10-30-2017 Magnesium mass conc 1.9 mg/dL Normal 1.9-2.7 [facility] Comment on above: Performed By: #### 4 5506, 54192, 20996, 16129, 03303, 47002 ####[facility] PHOSPHORUS BLOODon 8 Phosphate mass conc 3.7 mg/dL Normal 2.5-5.0 [facility] Comment on above: Performed By: #### 4 5506, 56895, 92584, 50224, 80296, 56628 ####[facility] TACROLIMUSon 10-30-2017 Tacrolimus mass conc (Bld) 7.1 ng/mL Normal 5.0-20.0 The [facility] Comment on above: Result Comment: The [employer]ATURE [employer]ATOR Tacrolimus assay is a delayed one-step immunoassayfor the quantitative determination of tacrolimus in human whole bloodusing the chemiluminescent microparticle immunoassay (CMIA) technologywith flexible assay protocols, referred to as Chemiflex. Performed By: #### 9 9914 ####[facility] URIC ACID BLOODon 10-30-2017 Urate mass conc 4.6 mg/dL Normal 2.3-6.6 The [facility] Comment on above: Performed By: #### 4 2641, 52900 ####[facility] CBC W/DIFFon 10-23-2017 ABS BASOPHILS 0.0 10*3/uL Normal 0.0-0.[address] [facility] Comment on above: Performed By: #### 4 5889, 95881 ####[facility] [place] [address] ABS IMM GRANS 0.1 10*3/uL Normal 0.0-0.[address] [facility] Comment on above: Performed By: #### 4 6247, 26953 ####[facility] [place] [address], [facility] ABS NEUTROPHILS 5.8 10*3/uL Normal 1.6-7.6 The [facility] Comment on above: Performed By: #### 4 4096, 08765 ####[facility] [place] [address], [facility] Basophils Auto #/vol (Bld) 0.2 % Normal 0.0-1.0 [facility] Comment on above: Performed By: #### 4 9403, 32347 ####[facility] [place] [address], [facility] Eosinophils Auto #/vol (Bld) 0.1 10*3/uL Normal 0.0-0.5 [facility] Comment on above: Performed By: #### 4 0673, 22238 ####[facility] [place] [address], [facility] Eosinophils/100 WBC Auto (Bld) 0.7 % Normal 0.0-6.0 [facility] Comment on above: Performed By: #### 4 3942, 75516 ####[facility] [place] [address], [facility] Erythrocyte distribution width Auto Ratio (RBC) 14.6 % Normal 11.5-15.0 [facility] Comment on above: Performed By: #### 4 5395, 59658 ####[facility] [place] [address], [facility] Hematocrit Auto Volume Fraction (Bld) 44.2 % Normal 36.0-45.[address] [facility] Comment on above: Performed By: #### 9 4186, 84973 ####[facility] [place] [address], [facility] Hemoglobin mass conc (Bld) 14.2 g/dL Normal 12.0-15.0 [facility] Comment on above: Performed By: #### 4 1611, 40709 ####[place] [address] IMMATURE GRANS 1.4 % High 0.0-1.[address] [facility] Comment on above: Performed By: #### 4 1270, 95223 ####[place] [address] Lymphocytes Auto #/vol (Bld) 2.1 10*3/uL Normal 1.2-4.0 [facility] Comment on above: Performed By: #### 4 2289, 44430 ####[address] Lymphocytes/100 WBC Auto (Bld) 22.5 % Normal 20.0-45.0 [facility] Comment on above: Performed By: #### 4 2651, 28438 ####[address] MCH Auto Entitic mass (RBC) 28.5 pg Normal 27.0-33.0 [facility] Comment on above: Performed By: #### 4 8842, 73459 ####[place] [address] MCHC Auto mass conc (RBC) 32.1 g/dL Normal 32.0-35.0 [facility] Comment on above: Performed By: #### 4 1708, 34377 ####[address] MCV Auto Entitic volume (RBC) 88.8 fL Normal 82.0-98.0 [facility] Comment on above: Performed By: #### 4 2734, 69654 ####[address] [place] [address], [place] Monocytes Auto #/vol (Bld) 1.1 10*3/uL High 0.1-1.0 [facility] Comment on above: Performed By: #### 4 6447, 95726 ####[facility] [place] [address].[place] [address], [facility] MONOS 12.0 % Normal 5.0-12.0 [facility] Comment on above: Performed By: #### 4 6447, 67673 ####[address] Neutrophils/100 WBC Auto (Bld) 63.2 % Normal 40.0-72.0 [facility] Comment on above: Performed By: #### 4 6447, 44010 ####[address] Nucleated RBC/100 WBC Ratio (Bld) 0 % Normal 0-0 [facility] Comment on above: Performed By: #### 4 6447, 72108 ####[address] PLAT CNT 241 10*3/uL Normal 150-400 The [facility] Comment on above: Performed By: #### 4 6447, 94365 ####[address] RBC Auto #/vol (Bld) 4.98 10*6/uL Normal 3.80-5.00 Th e [facility] Comment on above: Performed By: #### 4 7754, 46177 ####[address] WBC Auto #/vol (Bld) 9.14 10*3/uL Normal 4.00-10.60 Th e [facility] Comment on above: Performed By: #### 4 9141, 32402 ####[facility] [facility].[address] COMP METABOLIC PANELon 10-23 Albumin mass conc 3.8 g/dL Normal 3.5-5.7 [facility] Comment on above: Performed By: #### 4 6447, 23996 ####[facility] [facility].[address] ALKALINE PHOSPH 96 IU/L Normal 34-104 The [facility] Comment on above: Performed By: #### 4 6447, 32635 ####[facility] [facility].[address] ALT enzyme act/vol 15 U/L Normal 7-52 The [facility] Comment on above: Performed By: #### 4 6447, 94445 ####[facility] [facility] AST enzyme act/vol 13 U/L Normal 13-39 The [facility] Comment on above: Performed By: #### 9 1547, 31163 ####[place] [address] [facility].[address] Bilirubin mass conc 0.4 mg/dL Normal 0.3-1.0 [facility] Comment on above: Performed By: #### 4 8247, 08869 ####[facility] [facility].[address] Calcium mass conc 9.2 mg/dL Normal 8.6-10.3 The [facility] Comment on above: Performed By: #### 4 3947, 81598 ####[place] [address] [facility] [place] [address], [facility] Chloride molar conc 102 mmol/L Normal 98-107 The [facility] Comment on above: Performed By: #### 4 3945, 29763 ####[facility] [place] [address], [facility] CO2 molar conc 29 mmol/L Normal 21-[address] [facility] Comment on above: Performed By: #### 5 5413, 51734 ####[facility] [place] [address], [place] Creatinine mass conc 0.80 mg/dL Normal 0.60-1.20 The [facility] Comment on above: Performed By: #### 7 8224, 33883 ####[facility] [place] [address], [place] GFR/1.73 sq M predicted among blacks MDRD vol rate/area (S/P/Bld) mL/min/{1.73_m2} Normal >60 The [facility] Comment on above: Performed By: #### 4 8770, 57333 ####[facility] [place] [address], [facility] GFR/1.73 sq M predicted among non-blacks MDRD vol rate/area (S/P/Bld) mL/min/{1.73_m2} Normal >60 The [facility] Comment on above: Performed By: #### 3 3002, 06581 ####[facility] [place] [address], [facility] Glucose mass conc 85 mg/dL Normal 70-100 The [facility] Comment on above: Performed By: #### 6 9921, 39050 ####[facility] [place] [address], [place] Potassium molar conc 3.3 mmol/L Low 3.5-5.1 [facility] Comment on above: Performed By: #### 7 3126, 01367 ####[facility] [place] [address], [place] Protein mass conc 6.5 g/dL Normal 6.0-8.3 [facility] Comment on above: Performed By: #### 4 6447, 81255 ####[facility] [facility].[address] Sodium molar conc 139 mmol/L Normal 136-145 [facility] Comment on above: Performed By: #### 4 6447, 13444 ####[facility] [facility].[address] Urea nitrogen mass conc 18 mg/dL Normal 7-25 The [facility] Comment on above: Performed By: #### 4 6447, 51352 ####[place] [address] DIRECT BILIon 10-23-2017 Bilirubin.direct mass conc 0.1 mg/dL Normal 0.0-0.2 The [facility] Comment on above: Performed By: #### 4 6447, 96589 ####[facility] EVEROLIMUS 86812sh 8 EVEROLIMUS 4.0 ng/mL Normal The [facility] Comment on above: Result Comment: Ther [...] the transplantcenter.Test developed and characteristics determined by [facility]. See Compliance Statement B: [employer]/CSPerformed by [employer],[address] [facility] [place] [place] [address] tyr.[employer], Leonid Antonio MD - Lab. Director LIPID PROFILEon 10-23-2017 Cholesterol in HDL mass conc 53 mg/dL Normal 23-92 [facility] Comment on above: Result Comment: Slig ht variation in normal range could be due to gender and/or age.HDL CHOLESTEROL REFERENCE RANGE:20 years and older Cardiovascular Risk> or =60 mg/dL Rndkanece73 TO 59 mg/dL Low Risk<40 mg/dL High Risk Performed By: #### 4 6951, 80465 ####[facility] [place] [address], [facility] Cholesterol in LDL mass conc 68 mg/dL Normal 0-130 The [facility] Comment on above: Result Comment: LDL IS A CALCULATIONLDL IS ONLY VALID IF THE TRIG IS LESS THAN 400. Performed By: #### 4 2359, 64006 ####[facility] [place] [address], [facility] Cholesterol mass conc 135 mg/dL Normal 120-200 [facility] Comment on above: Result Comment: CHOL ESTEROL REFERENCE RANGE:20 YEARS AND OLDER CARDIOVASCULAR RISKLess than 200 mg/dl Low Iaei723 to 239 mg/dl Borderline Fxxa435 mg/dl and greater High Risk Performed By: #### 4 1923, 86050 ####[facility] [place] [address], [place] Cholesterol.total/Cho lesterol in HDL mass ratio 2.5 {ratio} Normal .0-4.5 [facility] Comment on above: Performed By: #### 4 8143, 47462 ####[facility] [place] [address], [place] NON-HDL CHOLESTEROL 82 mg/dL Normal [facility] Comment on above: Performed By: #### 4 6447, 72554 ####[facility] [facility] Triglyceride mass conc 72 mg/dL Normal 40-149 [facility] Comment on above: Result Comment: TRIG LYCERIDE REFERENCE RANGE:20 YEARS AND OLDER CARDIOVASCULAR RISKLESS THAN 150 mg/dl LOW [id number] TO 199 mg/dl BORDERLINE [id number] mg/dl AND GREATER HIGH RISK Performed By: #### 4 6447, 19878 ####[facility] [address] VLDL CHOL 14 mg/dL Normal 0-40 [facility] Comment on above: Performed By: #### 4 6447, 19760 ####[address] MAGNESIUM BLOODon 10-23-2017 Magnesium mass conc 1.8 mg/dL Low 1.9-2.7 [facility] Comment on above: Performed By: #### 4 6447, 61549 ####[place] [address] [address] PHOSPHORUS BLOODon 8 Phosphate mass conc 3.7 mg/dL Normal 2.5-5.0 [facility] Comment on above: Performed By: #### 4 6447, 79166 ####[place] [address] [facility].[address] TACROLIMUSon 10-23-2017 Tacrolimus mass conc (Bld) 2.6 ng/mL Low 5.0-20.0 [facility] Comment on above: Result Comment: The [employer]AM[employer] Tacrolimus assay is a delayed one-step immunoassayfor the quantitative determination of tacrolimus in human whole bloodusing the chemiluminescent microparticle immunoassay (CMIA) technologywith flexible assay protocols, referred to as Chemiflex. Performed By: #### 4 6447, 55090 ####[facility] URIC ACID BLOODon 10-23-2017 Urate mass conc 4.3 mg/dL Normal 2.3-6.6 [facility] Comment on above: Performed By: #### 4 6447, 58959 ####[facility] CBC W/DIFFon 09-25-2017 ABS BASOPHILS 0.0 10*3/uL Normal 0.0-0.[address] [facility] Comment on above: Performed By: #### 4 1000, 08217, 47135, 00359, 30320, 19621 ####[place] [address] [address] ABS IMM GRANS 0.0 10*3/uL Normal 0.0-0.[address] [facility] Comment on above: Performed By: #### 4 1000, 78578, 85725, 42719, 40888, 22681 ####[facility] [address] ABS NEUTROPHILS 4.4 10*3/uL Normal 1.6-7.6 The [facility] Comment on above: Performed By: #### 4 1000, 81597, 23465, 78102, 68826, 16150 ####[facility] Basophils Auto #/vol (Bld) 0.2 % Normal 0.0-1.0 [facility] Comment on above: Performed By: #### 4 1000, 77340, 35119, 78393, 27445, 27368 ####[facility] Eosinophils Auto #/vol (Bld) 0.1 10*3/uL Normal 0.0-0.5 [facility] Comment on above: Performed By: #### 4 1000, 57059, 05283, 77190, 60368, 14295 ####[facility] Eosinophils/100 WBC Auto (Bld) 2.2 % Normal 0.0-6.0 [facility] Comment on above: Performed By: #### 4 1000, 88157, 47750, 04234, 94413, 62183 ####[facility] Erythrocyte distribution width Auto Ratio (RBC) 14.0 % Normal 11.5-15.0 [facility] Comment on above: Performed By: #### 4 1000, 27596, 54259, 56372, 40312, 33313 ####[facility] Hematocrit Auto Volume Fraction (Bld) 44.8 % Normal 36.0-45.[address] [facility] Comment on above: Performed By: #### 4 1000, 39031, 80911, 64743, 49175, 91737 ####[facility].[address] Hemoglobin mass conc (Bld) 14.5 g/dL Normal 12.0-15.0 [facility] Comment on above: Performed By: #### 4 1000, 87798, 38727, 41286, 58981, 44269 ####[facility] IMMATURE GRANS 0.3 % Normal 0.0-1.[address] [facility] Comment on above: Performed By: #### 4 1000, 61548, 27485, 99838, 30095, 66066 ####[facility] Lymphocytes Auto #/vol (Bld) 1.1 10*3/uL Low 1.2-4.0 [facility] Comment on above: Performed By: #### 4 1000, 12136, 98261, 88785, 33236, 97715 ####[facility].[address] Lymphocytes/100 WBC Auto (Bld) 17.0 % Low 20.0-45.0 [facility] Comment on above: Performed By: #### 4 1000, 27115, 03328, 49315, 98759, 20513 ####[facility] MCH Auto Entitic mass (RBC) 28.6 pg Normal 27.0-33.0 [facility] Comment on above: Performed By: #### 4 1000, 82291, 08944, 36052, 65006, 26416 ####[facility].[address] MCHC Auto mass conc (RBC) 32.4 g/dL Normal 32.0-35.0 [facility] Comment on above: Performed By: #### 4 1000, 99286, 03035, 96335, 62187, 93317 ####[facility].[address] MCV Auto Entitic volume (RBC) 88.4 fL Normal 82.0-98.0 [facility] Comment on above: Performed By: #### 4 1000, 48682, 58226, 83564, 33296, 80862 ####[facility].[address] Monocytes Auto #/vol (Bld) 0.7 10*3/uL Normal 0.1-1.0 [facility] Comment on above: Performed By: #### 4 1000, 71442, 93456, 70592, 27186, 69025 ####[facility].[address] MONOS 11.5 % Normal 5.0-12.0 [facility] Comment on above: Performed By: #### 4 1000, 17304, 21819, 19668, 95767, 96830 ####[facility] Neutrophils/100 WBC Auto (Bld) 68.8 % Normal 40.0-72.0 [facility] Comment on above: Performed By: #### 4 1000, 38870, 94724, 03548, 70257, 54827 ####[facility] Nucleated RBC/100 WBC Ratio (Bld) 0 % Normal 0-0 [facility] Comment on above: Performed By: #### 4 1000, 00358, 61324, 53583, 24827, 46578 ####[facility].[address] PLAT CNT 212 10*3/uL Normal 150-400 [facility] Comment on above: Performed By: #### 4 1000, 20822, 42511, 35649, 39772, 99868 ####[facility].[address] RBC Auto #/vol (Bld) 5.07 10*6/uL High 3.80-5.00 [facility] Comment on above: Performed By: #### 4 1000, 82531, 75926, 94498, 08486, 39017 ####[facility] [place] [address], [facility] WBC Auto #/vol (Bld) 6.34 10*3/uL Normal 4.00-10.60 [facility] Comment on above: Performed By: #### 4 1000, 80036, 60532, 38154, 22719, 77337 ####[facility] COMP METABOLIC PANELon 09-25 Albumin mass conc 4.0 g/dL Normal 3.5-5.7 [facility] Comment on above: Performed By: #### 4 1947, 51246 ####[facility] [place] [address], [facility] ALKALINE PHOSPH 112 IU/L High 34-104 [facility] Comment on above: Performed By: #### 4 5347, 27629 ####[facility] [place] [address], [facility] ALT enzyme act/vol 11 U/L Normal 7-52 The [facility] Comment on above: Performed By: #### 4 2347, 34718 ####[facility] [place] [address], [facility] AST enzyme act/vol 17 U/L Normal 13-39 [facility] Comment on above: Performed By: #### 4 9805, 60351 ####[facility] [place] [address], [facility] Bilirubin mass conc 0.5 mg/dL Normal 0.3-1.0 [facility] Comment on above: Performed By: #### 4 9947, 51914 ####[facility] [place] [address], [facility] Calcium mass conc 9.6 mg/dL Normal 8.6-10.3 [facility] Comment on above: Performed By: #### 4 2147, 47172 ####[facility] [place] [address], [facility] Chloride molar conc 104 mmol/L Normal 98-107 [facility] Comment on above: Performed By: #### 4 6647, 73301 ####[facility] [id number], [place] CO2 molar conc 28 mmol/L Normal 21-[address] [facility] Comment on above: Performed By: #### 1 6228, 66561 ####[facility] [place] [address], [facility] Creatinine mass conc 0.83 mg/dL Normal 0.60-1.20 [facility] Comment on above: Performed By: #### 2 4441, 01734 ####[facility] [place] [address], [facility] GFR/1.73 sq M predicted among blacks MDRD vol rate/area (S/P/Bld) mL/min/{1.73_m2} Normal >60 The [facility] Comment on above: Performed By: #### 6 4239, 02672 ####[facility] [place] [address], [facility] GFR/1.73 sq M predicted among non-blacks MDRD vol rate/area (S/P/Bld) mL/min/{1.73_m2} Normal >60 The [facility] Comment on above: Performed By: #### 8 9621, 91426 ####[place] [address] [facility] [place] [address], [facility] Glucose mass conc 91 mg/dL Normal 70-100 [facility] Comment on above: Performed By: #### 0 2246, 35355 ####[facility] [place] [address], [facility] Potassium molar conc 3.9 mmol/L Normal 3.5-5.1 [facility] Comment on above: Performed By: #### 8 6039, 18838 ####[facility] [place] [address], [facility] Protein mass conc 7.0 g/dL Normal 6.0-8.3 [facility] Comment on above: Performed By: #### 8 9845, 83136 ####[facility].[address] Sodium molar conc 140 mmol/L Normal 136-145 [facility] Comment on above: Performed By: #### 4 6447, 91343 ####[facility].[address] Urea nitrogen mass conc 15 mg/dL Normal 7-25 [facility] Comment on above: Performed By: #### 4 6447, 00631 ####[facility] DIRECT BILIon 09-25-2017 Bilirubin.direct mass conc 0.1 mg/dL Normal 0.0-0.2 [facility] Comment on above: Performed By: #### 4 6447, 52803 ####[facility] EVEROLIMUS 16589ob 8 EVEROLIMUS 5.1 ng/mL Normal [facility] Comment on above: Result Comment: Ther [...] the transplantcenter.Test developed and characteristics determined by [facility]. See Compliance Statement B: [employer].Lob/CSPerformed by [employer],[address], [facility] [place] [address] yzc.[employer], Leonid Antonio MD - Lab. Director LIPID PROFILEon 09-25-2017 Cholesterol in HDL mass conc 48 mg/dL Normal 23-92 [facility] Comment on above: Result Comment: Slig ht variation in normal range could be due to gender and/or age.HDL CHOLESTEROL REFERENCE RANGE:20 years and older Cardiovascular Risk> or =60 mg/dL [id number] TO 59 mg/dL Low Risk<40 mg/dL High Risk Performed By: #### 4 5280, 22627 ####[facility] [place] [address], [facility] Cholesterol in LDL mass conc 69 mg/dL Normal 0-130 [facility] Comment on above: Result Comment: LDL IS A CALCULATIONLDL IS ONLY VALID IF THE TRIG IS LESS THAN 400. Performed By: #### 4 2021, 76127 ####[facility] [place] [address], [facility] Cholesterol mass conc 138 mg/dL Normal 120-200 [facility] Comment on above: Result Comment: CHOL ESTEROL REFERENCE RANGE:20 YEARS AND OLDER CARDIOVASCULAR RISKLess than 200 mg/dl Low Zlqu190 to 239 mg/dl Borderline Nykc909 mg/dl and greater High Risk Performed By: #### 4 5086, 89871 ####[facility] [place] [address], [facility] Cholesterol.total/Cho lesterol in HDL mass ratio 2.9 {ratio} Normal .0-4.5 [facility] Comment on above: Performed By: #### 4 5499, 44711 ####[facility] [place] [address], [facility] NON-HDL CHOLESTEROL 90 mg/dL Normal [facility] Comment on above: Performed By: #### 4 4155, 48201 ####[facility].[address] Triglyceride mass conc 103 mg/dL Normal 40-149 [facility] Comment on above: Result Comment: TRIG LYCERIDE REFERENCE RANGE:20 YEARS AND OLDER CARDIOVASCULAR RISKLESS THAN 150 mg/dl LOW [id number] TO 199 mg/dl BORDERLINE VOMY152 mg/dl AND GREATER HIGH RISK Performed By: #### 4 9080, 87976 ####[facility].[address] VLDL CHOL 21 mg/dL Normal 0-40 [facility] Comment on above: Performed By: #### 4 1147, 23639 ####[facility].[address] MAGNESIUM BLOODon 09-25-2017 Magnesium mass conc 1.8 mg/dL Low 1.9-2.7 [facility] Comment on above: Performed By: #### 4 5769, 43316 ####[facility].[address] PHOSPHORUS BLOODon 8 Phosphate mass conc 3.4 mg/dL Normal 2.5-5.0 [facility] Comment on above: Performed By: #### 4 5747, 17027 ####[facility].[address] TACROLIMUSon 09-25-2017 Tacrolimus mass conc (Bld) 3.6 ng/mL Low 5.0-20.0 [facility] Comment on above: Result Comment: The [employer]PER[employer]ATOR Tacrolimus assay is a delayed one-step immunoassayfor the quantitative determination of tacrolimus in human whole bloodusing the chemiluminescent microparticle immunoassay (CMIA) technologywith flexible assay protocols, referred to as Chemiflex. Performed By: #### 4 6088, 49956 ####[facility] [place] [address], [facility] URIC ACID BLOODon 09-25-2017 Urate mass conc 4.7 mg/dL Normal 2.3-6.6 [facility] Comment on above: Performed By: #### 4 6447, 57612 ####[address] BK VIRUS QUANTITATION PCR BL OODon 08-26-2017 BKV QUANT PCR Not detected Normal [facility] Comment on above: Result Comment: Meth od: BK virus was measured by quantitative polymerase chain reactionusing a TaqMan probe targeting the polyomavirus BK TEST FIXTURE ASSEMBLER-1 gene.The lower limit of quantitation of the assay is 500 copies of BK genomeper milliliter of plasma or urine, and any detectable BK DNA below thatlevel is reported as: Detected, <500 copies/ml. Serial BK virusmeasurement can be used to monitor disease activity. (Reference:Kelsie vaughanl. J CLIN MICRO 2004; 42:4174-5487).This test was developed and its performance characteristics determinedby the [facility]. It has not been approvedby the [place] Food and Drug Administration. However, such approval is notrequired for clinical implementation, and test results have been shownto be clinically useful. This laboratory is CAP accredited and CLIAcertified to perform high complexity testing. Performed By: #### 4 1000, 71792, 14084, 69640, 61153, 04610 ####[facility].[address] LOG 10 COPIES Not detected Normal [facility] Comment on above: Performed By: #### 4 1000, 34711, 63496, 98959, 63210, 93952 ####[facility].[address] CBC W/DIFFon 08-26-2017 ABS BASOPHILS 0.0 10*3/uL Normal 0.0-0.[address] [facility] Comment on above: Performed By: #### 4 1000, 83276, 68600, 93520, 98210, 32746 ####[place] [address] [facility].[address] ABS IMM GRANS 0.0 10*3/uL Normal 0.0-0.[address] [facility] Comment on above: Performed By: #### 4 1000, 03505, 91175, 62857, 13692, 14371 ####[facility] [place] [address], [facility] ABS NEUTROPHILS 4.5 10*3/uL Normal 1.6-7.6 [facility] Comment on above: Performed By: #### 4 1000, 54002, 38691, 59321, 93661, 89190 ####[facility] [place] [address], [facility] Basophils Auto #/vol (Bld) 0.2 % Normal 0.0-1.0 [facility] Comment on above: Performed By: #### 4 1000, 29288, 02092, 05780, 16154, 23538 ####[facility] [place] [address], [facility] Eosinophils Auto #/vol (Bld) 0.2 10*3/uL Normal 0.0-0.5 [facility] Comment on above: Performed By: #### 4 1000, 63520, 31606, 79166, 86369, 64420 ####[facility] [place] [address], [facility] Eosinophils/100 WBC Auto (Bld) 2.4 % Normal 0.0-6.0 [facility] Comment on above: Performed By: #### 4 1000, 26992, 73296, 69653, 03012, 58298 ####[facility].[address] Erythrocyte distribution width Auto Ratio (RBC) 14.0 % Normal 11.5-15.0 [facility] Comment on above: Performed By: #### 4 1000, 18494, 78895, 94204, 50268, 66743 ####[facility] Hematocrit Auto Volume Fraction (Bld) 44.9 % Normal 36.0-45.[address] [facility] Comment on above: Performed By: #### 4 1000, 85680, 26363, 71174, 81246, 96485 ####[address] Hemoglobin mass conc (Bld) 14.9 g/dL Normal 12.0-15.0 [facility] Comment on above: Performed By: #### 4 1000, 79905, 25903, 38652, 75303, 11093 ####[address] IMMATURE GRANS 0.5 % Normal 0.0-1.[address] [facility] Comment on above: Performed By: #### 4 1000, 22760, 50577, 82475, 58972, 84532 ####[address] Lymphocytes Auto #/vol (Bld) 1.0 10*3/uL Low 1.2-4.0 [facility] Comment on above: Performed By: #### 4 1000, 77088, 87950, 60991, 02857, 61118 ####[place] [address] [facility].[address] Lymphocytes/100 WBC Auto (Bld) 15.8 % Low 20.0-45.0 [facility] Comment on above: Performed By: #### 4 1000, 03814, 80190, 91375, 96612, 68410 ####[place] [address] [address] MCH Auto Entitic mass (RBC) 29.1 pg Normal 27.0-33.0 [facility] Comment on above: Performed By: #### 4 1000, 09316, 86741, 43949, 83006, 08043 ####[facility] MCHC Auto mass conc (RBC) 33.2 g/dL Normal 32.0-35.0 [facility] Comment on above: Performed By: #### 4 1000, 45110, 38374, 94888, 77830, 53311 ####[facility] MCV Auto Entitic volume (RBC) 87.7 fL Normal 82.0-98.0 [facility] Comment on above: Performed By: #### 4 1000, 79719, 80623, 26496, 45263, 15649 ####[facility] Monocytes Auto #/vol (Bld) 0.7 10*3/uL Normal 0.1-1.0 [facility] Comment on above: Performed By: #### 4 1000, 53995, 46895, 67571, 85216, 13569 ####[facility].[address] MONOS 10.6 % Normal 5.0-12.0 [facility] Comment on above: Performed By: #### 4 1000, 01844, 13417, 13838, 68556, 79064 ####[facility] Neutrophils/100 WBC Auto (Bld) 70.5 % Normal 40.0-72.0 [facility] Comment on above: Performed By: #### 4 1000, 82380, 33761, 08014, 26036, 59090 ####[facility] Nucleated RBC/100 WBC Ratio (Bld) 0 % Normal 0-0 [facility] Comment on above: Performed By: #### 4 1000, 51905, 27563, 25547, 69535, 13552 ####[facility] [place] [address], [facility] PLAT CNT 231 10*3/uL Normal 150-400 The [facility] Comment on above: Performed By: #### 4 1000, 31333, 80887, 22569, 30165, 98487 ####[facility] RBC Auto #/vol (Bld) 5.12 10*6/uL High 3.80-5.00 Th [facility] Comment on above: Performed By: #### 4 1000, 23916, 34999, 81419, 65291, 68811 ####[facility] WBC Auto #/vol (Bld) 6.32 10*3/uL Normal 4.00-10.60 Th [facility] Comment on above: Performed By: #### 4 1000, 47540, 45019, 67527, 01320, 90082 ####[facility] COMP METABOLIC PANELon 08-26 Albumin mass conc 4.3 g/dL Normal 3.5-5.7 [facility] Comment on above: Performed By: #### 4 1000, 53548, 56736, 10008, 68304, 59889 ####[facility] ALKALINE PHOSPH 125 IU/L High 34-104 [facility] Comment on above: Performed By: #### 4 1000, 22785, 36748, 11959, 01220, 15635 ####[facility] ALT enzyme act/vol 17 U/L Normal 7-52 The [facility] Comment on above: Performed By: #### 4 1000, 37408, 51789, 91806, 84296, 98873 ####[facility].[place] [id number], [facility] AST enzyme act/vol 23 U/L Normal 13-39 [facility] Comment on above: Performed By: #### 4 1000, 39919, 31673, 45491, 45263, 18060 ####[facility] [place] [address], [place] Bilirubin mass conc 0.4 mg/dL Normal 0.3-1.0 [facility] Comment on above: Performed By: #### 4 1000, 08140, 27645, 38732, 03728, 22591 ####[facility] [place] [address], [facility] Calcium mass conc 9.6 mg/dL Normal 8.6-10.3 [facility] Comment on above: Performed By: #### 4 1000, 60176, 51313, 82700, 99808, 52738 ####[facility] [place] [address], [facility] Chloride molar conc 104 mmol/L Normal 98-107 [facility] Comment on above: Performed By: #### 4 1000, 91558, 19789, 21408, 74729, 94059 ####[facility] [place] [address], [place] CO2 molar conc 27 mmol/L Normal 21-[address] [facility] Comment on above: Performed By: #### 4 1000, 85244, 93444, 35674, 31749, 39804 ####[facility] [place] [address], [place] Creatinine mass conc 0.77 mg/dL Normal 0.60-1.20 [facility] Comment on above: Performed By: #### 4 1000, 47694, 89444, 47705, 35368, 97485 ####[facility] [place] [address], [place] GFR/1.73 sq M predicted among blacks MDRD vol rate/area (S/P/Bld) mL/min/{1.73_m2} Normal >60 The [facility] Comment on above: Performed By: #### 4 1000, 02706, 98633, 30400, 59691, 70267 ####[facility] [place] [address], [place] GFR/1.73 sq M predicted among non-blacks MDRD vol rate/area (S/P/Bld) mL/min/{1.73_m2} Normal >60 The [facility] Comment on above: Performed By: #### 4 1000, 08296, 65415, 61992, 22976, 23711 ####[facility] [place] [address], [place] Glucose mass conc 95 mg/dL Normal 70-100 [facility] Comment on above: Performed By: #### 4 1000, [id number], 51056, 79546, 28121, [id number] ####[facility] [place] [address], [place] Potassium molar conc 4.1 mmol/L Normal 3.5-5.1 [facility] Comment on above: Performed By: #### 4 1000, [id number], 27667, 79253, 96276, 89046 ####[facility] [place] [address], [place] Protein mass conc 7.3 g/dL Normal 6.0-8.3 The [facility] Comment on above: Performed By: #### 4 1000, 70464, 07970, 31517, 66634, 12805 ####[facility] [place] [address], [place] Sodium molar conc 139 mmol/L Normal 136-145 [facility] Comment on above: Performed By: #### 4 1000, 53429, 30966, 88838, 55851, 74165 ####[facility] Urea nitrogen mass conc 12 mg/dL Normal 7-25 The [facility] Comment on above: Performed By: #### 4 1000, 25233, 29844, 97637, 32991, 44179 ####[facility] DIRECT BILIon 08-26-2017 Bilirubin.direct mass conc 0.1 mg/dL Normal 0.0-0.2 [facility] Comment on above: Performed By: #### 4 1000, 77136, 75881, 32461, 09352, 49975 ####[facility] EVEROLIMUS 96072hm 8 EVEROLIMUS 5.6 ng/mL Normal The [facility] Comment on above: Result Comment: Ther [...] the transplantcenter.Test developed and characteristics determined by [facility]. See Compliance Statement B: [facility]/CSPerformed by [facility],[address] [place] [address] qqd.[facility], Leonid Antonio MD - Lab. Director HEMOGLOBIN A1Con 08-26-2017 Glucose mass conc 114 mg/dL Normal 70-126 [facility] Comment on above: Performed By: #### 4 1000, 62456, 85804, 16338, 18996, 05635 ####[facility] [place] [address], [facility] Hemoglobin A1c/Hemoglobin.total mass fraction (Bld) 5.6 % Normal 4.0-6.0 The [facility] Comment on above: Performed By: #### 4 1000, 61210, 52857, 19801, 52818, 98583 ####[facility] [place] [address], [facility] LIPID PROFILEon 08-26-2017 Cholesterol in HDL mass conc 49 mg/dL Normal 23-92 [facility] Comment on above: Result Comment: Slig ht variation in normal range could be due to gender and/or age.HDL CHOLESTEROL REFERENCE RANGE:20 years and older Cardiovascular Risk> or =60 mg/dL Jbbxnsinn72 TO 59 mg/dL Low Risk<40 mg/dL High Risk Performed By: #### 4 1000, 67232, 02406, 17992, 56633, 59213 ####[facility] [place] [address], [place] Cholesterol in LDL mass conc 76 mg/dL Normal 0-130 The [facility] Comment on above: Result Comment: LDL IS A CALCULATIONLDL IS ONLY VALID IF THE TRIG IS LESS THAN 400. Performed By: #### 4 1000, 48513, 82986, 46703, 16237, 46058 ####[facility] [place] [address], [place] Cholesterol mass conc 152 mg/dL Normal 120-200 The [facility] Comment on above: Result Comment: CHOL ESTEROL REFERENCE RANGE:20 YEARS AND OLDER CARDIOVASCULAR RISKLess than 200 mg/dl Low Odve383 to 239 mg/dl Borderline Tirc013 mg/dl and greater High Risk Performed By: #### 4 1000, 95082, 43280, 67703, 62592, 69855 ####[facility] [place] [address], [facility] Cholesterol.total/Cho lesterol in HDL mass ratio 3.1 {ratio} Normal .0-4.5 The [facility] Comment on above: Performed By: #### 4 1000, 23478, 30479, 05670, 23463, 37958 ####[facility] NON-HDL CHOLESTEROL 103 mg/dL Normal [facility] Comment on above: Performed By: #### 4 1000, 50078, 02674, 05880, 32515, 76181 ####[facility] [facility] Triglyceride mass conc 133 mg/dL Normal 40-149 The [facility] Comment on above: Result Comment: TRIG LYCERIDE REFERENCE RANGE:20 YEARS AND OLDER CARDIOVASCULAR RISKLESS THAN 150 mg/dl LOW [id number] TO 199 mg/dl BORDERLINE DTYT436 mg/dl AND GREATER HIGH RISK Performed By: #### 4 1000, 50456, 21286, 41256, 30994, 45439 ####[facility] [place] [address], [facility] VLDL CHOL 27 mg/dL Normal 0-40 The [facility] Comment on above: Performed By: #### 4 1000, 35544, 30199, 21100, 97783, 09797 ####[facility] [place] [address], [facility] MAGNESIUM BLOODon 08-26-2017 Magnesium mass conc 1.9 mg/dL Normal 1.9-2.7 The [facility] Comment on above: Performed By: #### 4 1000, 04974, 75740, 97900, 61140, 92958 ####[facility] [facility] [place] [address], [facility] PHOSPHORUS BLOODon 8 Phosphate mass conc 3.4 mg/dL Normal 2.5-5.0 The [facility] Comment on above: Performed By: #### 4 1000, 55299, 46355, 60713, 37547, 00104 ####[facility] [facility] [place] [address], [facility] TACROLIMUSon 08-26-2017 Tacrolimus mass conc (Bld) 4.3 ng/mL Low 5.0-20.0 The [facility] Comment on above: Result Comment: The [employer] Tacrolimus assay is a delayed one-step immunoassayfor the quantitative determination of tacrolimus in human whole bloodusing the chemiluminescent microparticle immunoassay (CMIA) technologywith flexible assay protocols, referred to as Chemiflex. Performed By: #### 4 1000, 18532, 40079, 96267, 13620, 73132 ####[facility] [facility] [place] [address], [facility] URIC ACID BLOODon 08-26-2017 Urate mass conc 4.6 mg/dL Normal 2.3-6.6 The [facility] Comment on above: Performed By: #### 4 1000, 02963, 87507, 56087, 59336, 62676 ####[facility] [facility] [place] [address], [facility] CBC W/DIFFon 07-23-2017 ABS BASOPHILS 0.0 10*3/uL Normal 0.0-0.[address] [facility] Comment on above: Performed By: #### 4 1000, 05069, 98228, 42415, 40099, 70440 ####[facility] [facility] [place] [address], [facility] ABS IMM GRANS 0.0 10*3/uL Normal 0.0-0.[address] [facility] Comment on above: Performed By: #### 4 1000, 12865, 32851, 82409, 91985, 41292 ####[facility] ABS NEUTROPHILS 4.4 10*3/uL Normal 1.6-7.6 The [facility] Comment on above: Performed By: #### 4 1000, 49245, 88482, 56062, 15796, 88585 ####[facility] Basophils Auto #/vol (Bld) 0.2 % Normal 0.0-1.0 The [facility] Comment on above: Performed By: #### 4 1000, 44451, 72736, 31060, 78433, 44904 ####[facility] Eosinophils Auto #/vol (Bld) 0.1 10*3/uL Normal 0.0-0.5 The [facility] Comment on above: Performed By: #### 4 1000, 62219, 27008, 36053, 02685, 77163 ####[facility] Eosinophils/100 WBC Auto (Bld) 2.1 % Normal 0.0-6.0 The [facility] Comment on above: Performed By: #### 4 1000, 60509, 00667, 17684, 73755, 43207 ####[facility] Erythrocyte distribution width Auto Ratio (RBC) 13.7 % Normal 11.5-15.0 The [facility] Comment on above: Performed By: #### 4 1000, 18441, 19094, 94944, 89601, 14301 ####[facility] Hematocrit Auto Volume Fraction (Bld) 44.4 % Normal 36.0-45.[address] [facility] Comment on above: Performed By: #### 4 1000, 47500, 58412, 47543, 09067, 68425 ####[facility] [facility].[address] Hemoglobin mass conc (Bld) 14.7 g/dL Normal 12.0-15.0 The [facility] Comment on above: Performed By: #### 4 1000, 42609, 61866, 43540, 76918, 79340 ####[facility] [facility].[address] IMMATURE GRANS 0.5 % Normal 0.0-1.[address] [facility] Comment on above: Performed By: #### 4 1000, 15296, 40490, 27385, 12459, 89846 ####[facility] [facility].[address] Lymphocytes Auto #/vol (Bld) 1.0 10*3/uL Low 1.2-4.0 The [facility] Comment on above: Performed By: #### 4 1000, 01334, 81517, 42518, 66694, 60046 ####[facility] [facility].[address] Lymphocytes/100 WBC Auto (Bld) 15.5 % Low 20.0-45.0 The [facility] Comment on above: Performed By: #### 4 1000, 15201, 87981, 44897, 10555, 52574 ####[facility] [facility].[address] MCH Auto Entitic mass (RBC) 28.9 pg Normal 27.0-33.0 The [facility] Comment on above: Performed By: #### 4 1000, 79625, 52147, 84298, 92255, 41318 ####[facility] MCHC Auto mass conc (RBC) 33.1 g/dL Normal 32.0-35.0 The [facility] Comment on above: Performed By: #### 4 1000, 74542, 18471, 79305, 01887, 91849 ####[facility] MCV Auto Entitic volume (RBC) 87.4 fL Normal 82.0-98.0 The [facility] Comment on above: Performed By: #### 4 1000, 50844, 20951, 70742, 47065, 70459 ####[facility] [facility].[address] Monocytes Auto #/vol (Bld) 0.8 10*3/uL Normal 0.1-1.0 The [facility] Comment on above: Performed By: #### 4 1000, 72430, 22219, 91843, 01752, 35119 ####[facility]3000 [facility] MONOS 12.3 % High 5.0-12.0 The [facility] Comment on above: Performed By: #### 4 1000, 52076, 37989, 41243, 35808, 68143 ####[facility] [facility] Neutrophils/100 WBC Auto (Bld) 69.4 % Normal 40.0-72.0 The [facility] Comment on above: Performed By: #### 4 1000, 45284, 77666, 67282, 21432, 01311 ####[facility] Nucleated RBC/100 WBC Ratio (Bld) 0 % Normal 0-0 The [facility] Comment on above: Performed By: #### 4 1000, 36259, 02990, 97930, 13284, 97742 ####[facility] [place] [address], [facility] PLAT CNT 218 10*3/uL Normal 150-400 The [facility] Comment on above: Performed By: #### 4 1000, 41635, 71956, 41301, 98208, 59830 ####[facility] RBC Auto #/vol (Bld) 5.08 10*6/uL High 3.80-5.00 Th e [facility] Comment on above: Performed By: #### 4 1000, 17409, 64027, 77112, 13543, 26822 ####[facility] WBC Auto #/vol (Bld) 6.3 10*3/uL Normal 4.0-10.6 [facility] Comment on above: Performed By: #### 4 1000, 81111, 45037, 17973, 38266, 95001 ####[facility] COMP METABOLIC PANELon 07-23 Albumin mass conc 4.2 g/dL Normal 3.5-5.7 [facility] Comment on above: Performed By: #### 4 1000, 62175, 37896, 72063, 13364, 72075 ####[facility] ALKALINE PHOSPH 113 IU/L High 34-104 The [facility] Comment on above: Performed By: #### 4 1000, 06611, 38086, 56466, 99289, 19948 ####[facility] ALT enzyme act/vol 23 U/L Normal 7-52 The [facility] Comment on above: Performed By: #### 4 1000, 29220, 93626, 73681, 62268, 40473 ####[facility] [place] [address], [facility] AST enzyme act/vol 25 U/L Normal 13-39 The [facility] Comment on above: Performed By: #### 4 1000, 95384, 89002, 62104, 96541, 91892 ####[facility] [place] [address], [facility] Bilirubin mass conc 0.6 mg/dL Normal 0.3-1.0 The [facility] Comment on above: Performed By: #### 4 1000, 97448, 00524, 00851, 59746, 17951 ####[facility] [place] [address], [facility] Calcium mass conc 9.6 mg/dL Normal 8.6-10.3 [facility] Comment on above: Performed By: #### 4 1000, 85884, 98944, 36556, 42685, 07292 ####[facility] [place] [address], [facility] Chloride molar conc 104 mmol/L Normal 98-107 The [facility] Comment on above: Performed By: #### 4 1000, 29989, 30370, 87466, 69315, 18631 ####[facility] [place] [address], [place] CO2 molar conc 25 mmol/L Normal 21-[address] [facility] Comment on above: Performed By: #### 4 1000, 03473, 59790, 47805, 84043, 66516 ####[facility] [place] [address], [place] Creatinine mass conc 0.80 mg/dL Normal 0.60-1.20 The [facility] Comment on above: Performed By: #### 4 1000, 99535, 81663, 85319, 90292, 33493 ####[facility] [place] [address], [place] GFR/1.73 sq M predicted among blacks MDRD vol rate/area (S/P/Bld) mL/min/{1.73_m2} Normal >60 The [facility] Comment on above: Performed By: #### 4 1000, 33429, 21854, 57161, 73740, 88162 ####[facility] [place] [address], [facility] GFR/1.73 sq M predicted among non-blacks MDRD vol rate/area (S/P/Bld) mL/min/{1.73_m2} Normal >60 The [facility] Comment on above: Performed By: #### 4 1000, 30480, 81357, 56048, 55110, 03193 ####[facility] [place] [address], [facility] Glucose mass conc 91 mg/dL Normal 70-100 The [facility] Comment on above: Performed By: #### 4 1000, 20015, 49479, 27422, 67174, 18431 ####[facility] [place] [address], [facility] Potassium molar conc 4.0 mmol/L Normal 3.5-5.1 The [facility] Comment on above: Performed By: #### 4 1000, 85864, 90907, 67454, 03901, 43115 ####[facility] [place] [address], [place] Protein mass conc 6.8 g/dL Normal 6.0-8.3 [facility] Comment on above: Performed By: #### 4 1000, 91673, 19937, 64098, 08204, 88163 ####[facility] [place] [address], [place] Sodium molar conc 140 mmol/L Normal 136-145 The [facility] Comment on above: Performed By: #### 4 1000, 68618, 23869, 49002, 73550, 55894 ####[facility] [facility] Urea nitrogen mass conc 16 mg/dL Normal 7-25 [facility] Comment on above: Performed By: #### 4 1000, 28519, 09562, 81174, 85030, 35285 ####[facility] DIRECT BILIon 07-23-2017 Bilirubin.direct mass conc 0.2 mg/dL Normal 0.0-0.2 [facility] Comment on above: Performed By: #### 4 1000, 65894, 25883, 36137, 16100, 87997 ####[facility] [facility].[address] EVEROLIMUS [id number] 8 EVEROLIMUS 5.3 ng/mL Normal [facility] Comment on above: Result Comment: Ther [...] the transplantcenter.Test developed and characteristics determined by [facility]. See Compliance Statement B: [facility]/CSPerformed by [employer],[address] [place] [address] ayh.[employer], Leonid Antonio MD - Lab. Director LIPID PROFILEon 07-23-2017 Cholesterol in HDL mass conc 45 mg/dL Normal 23-92 The [facility] Comment on above: Result Comment: Slig ht variation in normal range could be due to gender and/or age.HDL CHOLESTEROL REFERENCE RANGE:20 years and older Cardiovascular Risk> or =60 mg/dL Yzjlckxnp97 TO 59 mg/dL Low Risk<40 mg/dL High Risk Performed By: #### 4 1000, 10704, 12166, 18017, 26723, 94786 ####[facility] [place] [address], [place] Cholesterol in LDL mass conc 79 mg/dL Normal 0-130 The [facility] Comment on above: Result Comment: LDL IS A CALCULATIONLDL IS ONLY VALID IF THE TRIG IS LESS THAN 400. Performed By: #### 4 1000, 86477, 65146, 47392, 60792, 62627 ####[facility] [place] [address], [place] Cholesterol mass conc 141 mg/dL Normal 120-200 The [facility] Comment on above: Result Comment: CHOL ESTEROL REFERENCE RANGE:20 YEARS AND OLDER CARDIOVASCULAR RISKLess than 200 mg/dl Low Grfd427 to 239 mg/dl Borderline Njsk027 mg/dl and greater High Risk Performed By: #### 4 1000, 18177, 18018, 43704, 00613, 21619 ####[facility] [place] [address], [place] Cholesterol.total/Cho lesterol in HDL mass ratio 3.1 {ratio} Normal .0-4.5 The [facility] Comment on above: Performed By: #### 4 1000, 09437, 87359, 17521, 07988, 91942 ####[facility] [place] [address], [place] NON-HDL CHOLESTEROL 96 mg/dL Normal The [facility] Comment on above: Performed By: #### 4 1000, 66816, 17416, 49811, 25220, 74714 ####[facility] Triglyceride mass conc 83 mg/dL Normal 40-149 The [facility] Comment on above: Result Comment: TRIG LYCERIDE REFERENCE RANGE:20 YEARS AND OLDER CARDIOVASCULAR RISKLESS THAN 150 mg/dl LOW [id number] TO 199 mg/dl BORDERLINE [id number] mg/dl AND GREATER HIGH RISK Performed By: #### 4 1000, 11522, 68571, 28263, 40962, 94723 ####[facility] [facility] VLDL CHOL 17 mg/dL Normal 0-40 The [facility] Comment on above: Performed By: #### 4 1000, 31651, 72203, 42638, 93588, 23997 ####[facility] MAGNESIUM BLOODon 07-23-2017 Magnesium mass conc 2.0 mg/dL Normal 1.9-2.7 The [facility] Comment on above: Performed By: #### 4 1000, 37342, 48901, 95987, 31548, 04967 ####[facility] PHOSPHORUS BLOODon 8 Phosphate mass conc 4.0 mg/dL Normal 2.5-5.0 The [facility] Comment on above: Performed By: #### 4 1000, 16156, 62939, 23206, 12016, 83117 ####[facility] TACROLIMUSon 07-23-2017 Tacrolimus mass conc (Bld) 4.6 ng/mL Low 5.0-20.0 The [facility] Comment on above: Result Comment: The [employer] Tacrolimus assay is a delayed one-step immunoassayfor the quantitative determination of tacrolimus in human whole bloodusing the chemiluminescent microparticle immunoassay (CMIA) technologywith flexible assay protocols, referred to as Chemiflex. Performed By: #### 4 1000, 25389, 30176, 17657, 50159, 72425 ####[facility] URIC ACID BLOODon 07-23-2017 Urate mass conc 4.7 mg/dL Normal 2.3-6.6 The [facility] Comment on above: Performed By: #### 4 1000, 16386, 00147, 39330, 21100, 23470 ####[facility] CBC W/DIFFon 06-20-2017 ABS BASOPHILS 0.0 10*3/uL Normal 0.0-0.[address] [facility] Comment on above: Performed By: #### 4 1000, 24104, 39521, 80454, 33584, 81822 ####[facility] ABS IMM GRANS 0.0 10*3/uL Normal 0.0-0.[address] [facility] Comment on above: Performed By: #### 4 1000, 75118, 32111, 28399, 33225, 05073 ####[facility] ABS NEUTROPHILS 4.2 10*3/uL Normal 1.6-7.6 The [facility] Comment on above: Performed By: #### 4 1000, 76719, 50857, 58367, 03490, 92460 ####[facility] Basophils Auto #/vol (Bld) 0.2 % Normal 0.0-1.0 The [facility] Comment on above: Performed By: #### 4 1000, 02042, 53515, 38081, 60375, 01112 ####[facility] Eosinophils Auto #/vol (Bld) 0.1 10*3/uL Normal 0.0-0.5 The [facility] Comment on above: Performed By: #### 4 1000, 53785, 75232, 34676, 27702, 63133 ####[facility] Eosinophils/100 WBC Auto (Bld) 1.5 % Normal 0.0-6.0 The [facility] Comment on above: Performed By: #### 4 1000, 19774, 72680, 93290, 05700, 49444 ####[facility] Erythrocyte distribution width Auto Ratio (RBC) 13.4 % Normal 11.5-15.0 The [facility] Comment on above: Performed By: #### 4 1000, 37714, 84835, 93656, 13626, 94877 ####[facility] Hematocrit Auto Volume Fraction (Bld) 44.9 % Normal 36.0-45.[address] [facility] Comment on above: Performed By: #### 4 1000, 46204, 75405, 02567, 15648, 04723 ####[facility] Hemoglobin mass conc (Bld) 14.9 g/dL Normal 12.0-15.0 The [facility] Comment on above: Performed By: #### 4 1000, 55794, 36700, 88647, 45265, 36247 ####[facility] IMMATURE GRANS 0.2 % Normal 0.0-1.0 [facility] Comment on above: Performed By: #### 4 1000, 69848, 19986, 89115, 73141, 01048 ####[facility] [facility].[address] Lymphocytes Auto #/vol (Bld) 1.1 10*3/uL Low 1.2-4.0 The [facility] Comment on above: Performed By: #### 4 1000, 46882, 16979, 89220, 23525, 89924 ####[facility] [facility].[address] Lymphocytes/100 WBC Auto (Bld) 17.4 % Low 20.0-45.0 The [facility] Comment on above: Performed By: #### 4 1000, 31592, 49513, 62522, 59935, 07972 ####[facility] [facility].[address] MCH Auto Entitic mass (RBC) 29.2 pg Normal 27.0-33.0 The [facility] Comment on above: Performed By: #### 4 1000, 21646, 47859, 12029, 69684, 48537 ####[facility] [facility].[address] MCHC Auto mass conc (RBC) 33.2 g/dL Normal 32.0-35.0 The [facility] Comment on above: Performed By: #### 4 1000, 22889, 96141, 25197, 73494, 64574 ####[facility] [facility].[address] MCV Auto Entitic volume (RBC) 87.9 fL Normal 82.0-98.0 The [facility] Comment on above: Performed By: #### 4 1000, 62461, 23085, 66993, 49267, 65673 ####[facility] [facility].[address] Monocytes Auto #/vol (Bld) 0.7 10*3/uL Normal 0.1-1.0 [facility] Comment on above: Performed By: #### 4 1000, 44213, 15990, 88281, 88177, 24814 ####[facility] MONOS 11.3 % Normal 5.0-12.0 The [facility] Comment on above: Performed By: #### 4 1000, 76317, 11527, 44233, 36494, 26933 ####[facility] Neutrophils/100 WBC Auto (Bld) 69.4 % Normal 40.0-72.0 The [facility] Comment on above: Performed By: #### 4 1000, 51935, 29716, 26758, 56269, 97760 ####[facility] Nucleated RBC/100 WBC Ratio (Bld) 0 % Normal 0-0 The [facility] Comment on above: Performed By: #### 4 1000, 87887, 57243, 86403, 72130, 28534 ####[facility] PLAT CNT 198 10*3/uL Normal 150-400 The [facility] Comment on above: Performed By: #### 4 1000, 93429, 63757, 94620, 38174, 73929 ####[facility] [place] [address], [facility] RBC Auto #/vol (Bld) 5.11 10*6/uL High 3.80-5.00 Th [facility] Comment on above: Performed By: #### 4 1000, 90312, 59846, 60786, 28456, 55932 ####[facility] WBC Auto #/vol (Bld) 6.0 10*3/uL Normal 4.0-10.6 [facility] Comment on above: Performed By: #### 4 1000, 65417, 91081, 78125, 20809, 05511 ####[facility] COMP METABOLIC PANELon 06-20 Albumin mass conc 4.4 g/dL Normal 3.5-5.7 [facility] Comment on above: Performed By: #### 4 1000, 76919, 38035, 80077, 41063, 54576 ####[facility] ALKALINE PHOSPH 133 IU/L High 34-104 [facility] Comment on above: Performed By: #### 4 1000, 86954, 86848, 71893, 68363, 09570 ####[facility] ALT enzyme act/vol 16 U/L Normal 7-52 The [facility] Comment on above: Performed By: #### 4 1000, 55458, 26409, 92368, 94402, 09413 ####[facility] AST enzyme act/vol 21 U/L Normal 13-39 [facility] Comment on above: Performed By: #### 4 1000, 37267, 96158, 55624, 45513, 76057 ####[facility] [place] [address], [facility] Bilirubin mass conc 0.8 mg/dL Normal 0.3-1.0 [facility] Comment on above: Performed By: #### 4 1000, 20134, 20219, 78852, 24580, 62710 ####[facility].[place] [id number], [facility] Calcium mass conc 10.0 mg/dL Normal 8.6-10.3 [facility] Comment on above: Performed By: #### 4 1000, 54138, 60194, 88704, 66088, 05398 ####[facility] [place] [address], [place] Chloride molar conc 106 mmol/L Normal 98-107 [facility] Comment on above: Performed By: #### 4 1000, 74946, 41104, 11558, 54145, 97268 ####[facility] [place] [address], [facility] CO2 molar conc 27 mmol/L Normal 21-[address] [facility] Comment on above: Performed By: #### 4 1000, 29342, 45432, 10035, 17933, 90493 ####[facility] [place] [address], [facility] Creatinine mass conc 0.74 mg/dL Normal 0.60-1.20 [facility] Comment on above: Performed By: #### 4 1000, 17801, 60200, 58862, 83297, 73728 ####[facility] [place] [address], [facility] GFR/1.73 sq M predicted among blacks MDRD vol rate/area (S/P/Bld) mL/min/{1.73_m2} Normal >60 The [facility] Comment on above: Performed By: #### 4 1000, 99708, 44538, 76716, 19259, 03079 ####[facility] [place] [address], [facility] GFR/1.73 sq M predicted among non-blacks MDRD vol rate/area (S/P/Bld) mL/min/{1.73_m2} Normal >60 [facility] Comment on above: Performed By: #### 4 1000, 98110, 38950, 91122, 43880, 72473 ####[facility] [place] [address], [facility] Glucose mass conc 95 mg/dL Normal 70-100 [facility] Comment on above: Performed By: #### 4 1000, 32043, 97399, 73996, 28093, 12556 ####[facility] [place] [address], [facility] Potassium molar conc 3.8 mmol/L Normal 3.5-5.1 [facility] Comment on above: Performed By: #### 4 1000, 90991, 09303, 90630, 47074, 02442 ####[facility] [place] [address], [facility] Protein mass conc 7.3 g/dL Normal 6.0-8.3 [facility] Comment on above: Performed By: #### 4 1000, 85320, 83417, 91776, 94939, 68932 ####[facility] [place] [address], [facility] Sodium molar conc 137 mmol/L Normal 136-145 [facility] Comment on above: Performed By: #### 4 1000, 98306, 81508, 84690, 62232, 52422 ####[facility] [place] [address], [facility] Urea nitrogen mass conc 16 mg/dL Normal 7-25 The [facility] Comment on above: Performed By: #### 4 1000, 81970, 74758, 49298, 34688, 74964 ####[facility] [place] [address], [facility] DIRECT BILIon 06-20-2017 Bilirubin.direct mass conc 0.1 mg/dL Normal 0.0-0.2 The [facility] Comment on above: Performed By: #### 4 1000, 51623, 38414, 73414, 42979, 67111 ####[facility] [facility].[address] EVEROLIMUS 09227zi 8 EVEROLIMUS 6.7 ng/mL Normal The [facility] Comment on above: Result Comment: Ther [...] the transplantcenter.Test developed and characteristics determined by [facility]. See Compliance Statement B: [employer]/CSPerformed by [employer],[address] [place] [id number] aty.[employer], Leonid Antonio MD - Lab. Director LIPID PROFILEon 06-20-2017 Cholesterol in HDL mass conc 45 mg/dL Normal 23-92 The [facility] Comment on above: Result Comment: Slig ht variation in normal range could be due to gender and/or age.HDL CHOLESTEROL REFERENCE RANGE:20 years and older Cardiovascular Risk> or =60 mg/dL Bilujrytd19 TO 59 mg/dL Low Risk<40 mg/dL High Risk Performed By: #### 4 1000, 81124, 62878, 44663, 76465, 82025 ####[facility] [place] [address], [facility] Cholesterol in LDL mass conc 58 mg/dL Normal 0-130 The [facility] Comment on above: Result Comment: LDL IS A CALCULATIONLDL IS ONLY VALID IF THE TRIG IS LESS THAN 400. Performed By: #### 4 1000, 93137, 12512, 36723, 03225, 71174 ####[facility] [place] [address], [facility] Cholesterol mass conc 126 mg/dL Normal 120-200 The [facility] Comment on above: Result Comment: CHOL ESTEROL REFERENCE RANGE:20 YEARS AND OLDER CARDIOVASCULAR RISKLess than 200 mg/dl Low Wdmo835 to 239 mg/dl Borderline Wamg675 mg/dl and greater High Risk Performed By: #### 4 1000, 09485, 45067, 29966, 13552, 75568 ####[facility] [place] [address], [facility] Cholesterol.total/Cho lesterol in HDL mass ratio 2.8 {ratio} Normal .0-4.5 [facility] Comment on above: Performed By: #### 4 1000, 92198, 37610, 31892, 54718, 55065 ####[facility] [place] [address], [facility] NON-HDL CHOLESTEROL 81 mg/dL Normal [facility] Comment on above: Performed By: #### 4 1000, 21670, 85250, 62209, 90419, 29044 ####[facility] [place] [address], [facility] Triglyceride mass conc 113 mg/dL Normal 40-149 The [facility] Comment on above: Result Comment: TRIG LYCERIDE REFERENCE RANGE:20 YEARS AND OLDER CARDIOVASCULAR RISKLESS THAN 150 mg/dl LOW [id number] TO 199 mg/dl BORDERLINE DEUH167 mg/dl AND GREATER HIGH RISK Performed By: #### 4 1000, 44680, 02031, 61469, 92735, 68808 ####[facility] [place] [address], [facility] VLDL CHOL 23 mg/dL Normal 0-40 The [facility] Comment on above: Performed By: #### 4 1000, 76003, 10064, 40041, 66583, 97293 ####[facility] MAGNESIUM BLOODon 06-20-2017 Magnesium mass conc 1.9 mg/dL Normal 1.9-2.7 [facility] Comment on above: Performed By: #### 4 1000, 97570, 14220, 66054, 27637, 82281 ####[facility] [facility].[address] PHOSPHORUS BLOODon 8 Phosphate mass conc 3.1 mg/dL Normal 2.5-5.0 [facility] Comment on above: Performed By: #### 4 1000, 75570, 68713, 89927, 29973, 40706 ####[facility] [facility].[address] TACROLIMUSon 06-20-2017 Tacrolimus mass conc (Bld) 4.2 ng/mL Low 5.0-20.0 The [facility] Comment on above: Result Comment: The [employer] Tacrolimus assay is a delayed one-step immunoassayfor the quantitative determination of tacrolimus in human whole bloodusing the chemiluminescent microparticle immunoassay (CMIA) technologywith flexible assay protocols, referred to as Chemiflex. Performed By: #### 4 1000, 91136, 34367, 20052, 42044, 55713 ####[facility] [facility].[address] URIC ACID BLOODon 06-20-2017 Urate mass conc 4.3 mg/dL Normal 2.3-6.6 [facility] Comment on above: Performed By: #### 4 1000, 01214, 01233, 46885, 39716, 55061 ####[facility] [facility].[address] BK VIRUS QUANTITATION PCR BL OODon 05-27-2017 BKV QUANT PCR Not detected Normal The [facility] Comment on above: Result Comment: Meth od: BK virus was measured by quantitative polymerase chain reactionusing a TaqMan probe targeting the polyomavirus BK TEST FIXTURE ASSEMBLER-1 gene.The lower limit of quantitation of the assay is 500 copies of BK genomeper milliliter of plasma or urine, and any detectable BK DNA below thatlevel is reported as: Detected, <500 copies/ml. Serial BK virusmeasurement can be used to monitor disease activity. (Reference:Kelsie vaughanl. J CLIN MICRO 2004; 42:9021-0795).This test was developed and its performance characteristics determinedby the [facility]. It has not been approvedby the [place] Food and Drug Administration. However, such approval is notrequired for clinical implementation, and test results have been shownto be clinically useful. This laboratory is CAP accredited and CLIAcertified to perform high complexity testing. Performed By: #### 4 1000, 67220, 63458, 18561, 87898, 98163 ####[facility] [facility].[address] LOG 10 COPIES Not detected Normal [facility] Comment on above: Performed By: #### 4 1000, 65499, 21551, 92467, 37696, 43332 ####[facility] [facility].[address] CBC W/DIFFon 05-27-2017 ABS BASOPHILS 0.0 10*3/uL Normal 0.0-0.[address] [facility] Comment on above: Performed By: #### 4 1000, 70792, 39048, 28763, 33018, 61050 ####[facility] [facility].[address] ABS IMM GRANS 0.0 10*3/uL Normal 0.0-0.[address] [facility] Comment on above: Performed By: #### 4 1000, 36745, 65420, 52876, 48580, 59774 ####[facility] ABS NEUTROPHILS 4.8 10*3/uL Normal 1.6-7.6 [facility] Comment on above: Performed By: #### 4 1000, 47338, 74892, 53933, 81325, 69959 ####[facility] [place] [address], [facility] Basophils Auto #/vol (Bld) 0.0 % Normal 0.0-1.0 The [facility] Comment on above: Performed By: #### 4 1000, 11233, 29292, 77707, 79522, 07675 ####[place] [address] [facility].[address] Eosinophils Auto #/vol (Bld) 0.1 10*3/uL Normal 0.0-0.5 The [facility] Comment on above: Performed By: #### 4 1000, 03240, 96098, 55738, 12513, 81488 ####[facility] Eosinophils/100 WBC Auto (Bld) 1.1 % Normal 0.0-6.0 [facility] Comment on above: Performed By: #### 4 1000, 19819, 77149, 88902, 09587, 66213 ####[place] [address] [facility].[address] Erythrocyte distribution width Auto Ratio (RBC) 13.5 % Normal 11.5-15.0 [facility] Comment on above: Performed By: #### 4 1000, 30726, 09199, 54705, 89673, 70260 ####[facility] Hematocrit Auto Volume Fraction (Bld) 46.1 % High 36.0-45.[address] [facility] Comment on above: Performed By: #### 4 1000, 56710, 93274, 74144, 49068, 30238 ####[facility]3000 [facility].[address] Hemoglobin mass conc (Bld) 15.0 g/dL Normal 12.0-15.0 [facility] Comment on above: Performed By: #### 4 1000, 26568, 44994, 16977, 71700, 32313 ####[facility] [facility].[address] IMMATURE GRANS 0.3 % Normal 0.0-1.[address] [facility] Comment on above: Performed By: #### 4 1000, 20203, 68420, 87126, 35283, 41522 ####[place] [address] [facility].[address] Lymphocytes Auto #/vol (Bld) 1.0 10*3/uL Low 1.2-4.0 [facility] Comment on above: Performed By: #### 4 1000, 81850, 84112, 74909, 62545, 07467 ####[facility] [facility].[address] Lymphocytes/100 WBC Auto (Bld) 15.7 % Low 20.0-45.0 The [facility] Comment on above: Performed By: #### 4 1000, 55450, 23915, 87703, 61856, 75866 ####[facility]3000 [facility].[address] MCH Auto Entitic mass (RBC) 28.8 pg Normal 27.0-33.0 The [facility] Comment on above: Performed By: #### 4 1000, 22120, 27252, 38272, 12899, 08221 ####[facility] [facility].[address] MCHC Auto mass conc (RBC) 32.5 g/dL Normal 32.0-35.0 The [facility] Comment on above: Performed By: #### 4 1000, 87496, 24729, 05727, 78348, 98643 ####[facility]3000 [facility].[address] MCV Auto Entitic volume (RBC) 88.7 fL Normal 82.0-98.0 [facility] Comment on above: Performed By: #### 4 1000, 62045, 35289, 92710, 21625, 74943 ####[facility] Monocytes Auto #/vol (Bld) 0.8 10*3/uL Normal 0.1-1.0 [facility] Comment on above: Performed By: #### 4 1000, 45678, 66355, 79301, 18005, 30056 ####[facility]3000 [facility].[address] MONOS 11.4 % Normal 5.0-12.0 The [facility] Comment on above: Performed By: #### 4 1000, 13700, 67125, 87701, 94205, 79237 ####[facility]3000 [facility].[address] Neutrophils/100 WBC Auto (Bld) 71.5 % Normal 40.0-72.0 The [facility] Comment on above: Performed By: #### 4 1000, 23989, 46346, 65642, 14301, 41998 ####[facility]3000 [facility].[address] Nucleated RBC/100 WBC Ratio (Bld) 0 % Normal 0-0 The [facility] Comment on above: Performed By: #### 4 1000, 97937, 67996, 34875, 23865, 90680 ####[facility] PLAT CNT 199 10*3/uL Normal 150-400 The [facility] Comment on above: Performed By: #### 4 1000, 68167, 32878, 41321, 54136, 92065 ####[facility] [place] [address], [facility] RBC Auto #/vol (Bld) 5.20 10*6/uL High 3.80-5.00 Th e [facility] Comment on above: Performed By: #### 4 1000, 96863, 59161, 53648, 88292, 67086 ####[facility] [place] [address], [facility] WBC Auto #/vol (Bld) 6.6 10*3/uL Normal 4.0-10.6 The [facility] Comment on above: Performed By: #### 4 1000, 21159, 92388, 31632, 89271, 14253 ####[facility] COMP METABOLIC PANELon 05-27 Albumin mass conc 4.6 g/dL Normal 3.5-5.7 [facility] Comment on above: Performed By: #### 4 1000, 88424, 36864, 32484, 18397, 74802 ####[facility] ALKALINE PHOSPH 105 IU/L High 34-104 [facility] Comment on above: Performed By: #### 4 1000, 51539, 32608, 09257, 14307, 97090 ####[facility] ALT enzyme act/vol 20 U/L Normal 7-52 The [facility] Comment on above: Performed By: #### 4 1000, 20990, 03534, 69417, 59418, 87686 ####[facility] AST enzyme act/vol 23 U/L Normal 13-39 The [facility] Comment on above: Performed By: #### 4 1000, 37652, 32664, 86923, 99476, 93457 ####[facility] [place] [address], [facility] Bilirubin mass conc 0.6 mg/dL Normal 0.3-1.0 [facility] Comment on above: Performed By: #### 4 1000, 15825, 78850, 07579, 12647, 80459 ####[facility] [place] [address], [place] Calcium mass conc 9.8 mg/dL Normal 8.6-10.3 [facility] Comment on above: Performed By: #### 4 1000, 25565, 65888, 99358, 62600, 96129 ####[facility] [place] [address], [place] Chloride molar conc 106 mmol/L Normal 98-107 [facility] Comment on above: Performed By: #### 4 1000, 64433, 44813, 25286, 93250, 65508 ####[facility] [place] [address], [place] CO2 molar conc 30 mmol/L Normal 21-[address] [facility] Comment on above: Performed By: #### 4 1000, 27874, 39065, 62924, 54972, 48948 ####[facility] [place] [address], [place] Creatinine mass conc 0.80 mg/dL Normal 0.60-1.20 The [facility] Comment on above: Performed By: #### 4 1000, 95648, 91653, 50463, 72214, 12491 ####[facility] [place] [address], [place] GFR/1.73 sq M predicted among blacks MDRD vol rate/area (S/P/Bld) mL/min/{1.73_m2} Normal >60 The [facility] Comment on above: Performed By: #### 4 1000, 52094, 32267, 88297, 52656, 10921 ####[facility] [place] [address], [facility] GFR/1.73 sq M predicted among non-blacks MDRD vol rate/area (S/P/Bld) mL/min/{1.73_m2} Normal >60 The [facility] Comment on above: Performed By: #### 4 1000, 42383, 65183, 70051, 94705, 76580 ####[facility] [place] [address], [facility] Glucose mass conc 90 mg/dL Normal 70-100 [facility] Comment on above: Performed By: #### 4 1000, 37847, 77092, 33820, 90427, 84269 ####[facility] [place] [address], [place] Potassium molar conc 4.0 mmol/L Normal 3.5-5.1 The [facility] Comment on above: Performed By: #### 4 1000, 61048, 38717, 63212, 23732, 13719 ####[facility] [place] [address], [place] Protein mass conc 6.8 g/dL Normal 6.0-8.3 [facility] Comment on above: Performed By: #### 4 1000, 71187, 91940, 95144, 70023, 68062 ####[facility] [place] [address], [place] Sodium molar conc 138 mmol/L Normal 136-145 [facility] Comment on above: Performed By: #### 4 1000, 60187, 58407, 31067, 74751, 36335 ####[facility] [place] [address], [facility] Urea nitrogen mass conc 14 mg/dL Normal 7-25 The [facility] Comment on above: Performed By: #### 4 1000, 25926, 01855, 40076, 49893, 87672 ####[facility] [facility] [place] [address], [facility] DIRECT BILIon 05-27-2017 Bilirubin.direct mass conc 0.1 mg/dL Normal 0.0-0.2 The [facility] Comment on above: Performed By: #### 4 1000, 30975, 46320, 40002, 44658, 92449 ####[facility].[address] EVEROLIMUS 78060va 8 EVEROLIMUS 5.6 ng/mL Normal [facility] Comment on above: Result Comment: Ther [...] the transplantcenter.Test developed and characteristics determined by [facility]. See Compliance Statement B: [employer]/CSPerformed by [employer],[address] [place] [address],[place] [address] lwa.[employer], Leonid Antonio MD - Lab. Director HEMOGLOBIN A1Con 05-27-2017 Glucose mass conc 108 mg/dL Normal 70-126 [facility] Comment on above: Performed By: #### 4 1000, 38792, 12345, 34657, 91447, 34601 ####[facility] [place] [address], [facility] Hemoglobin A1c/Hemoglobin.total mass fraction (Bld) 5.4 % Normal 4.0-6.0 The [facility] Comment on above: Performed By: #### 4 1000, 00300, 63331, 25413, 57322, 58765 ####[facility] LIPID PROFILEon 05-27-2017 Cholesterol in HDL mass conc 39 mg/dL Normal 23-92 [facility] Comment on above: Result Comment: Slig ht variation in normal range could be due to gender and/or age.HDL CHOLESTEROL REFERENCE RANGE:20 years and older Cardiovascular Risk> or =60 mg/dL Ftskismey11 TO 59 mg/dL Low Risk<40 mg/dL High Risk Performed By: #### 4 1000, 19312, 80582, 61415, 31713, 33932 ####[facility] [place] [address], [facility] Cholesterol in LDL mass conc 52 mg/dL Normal 0-130 [facility] Comment on above: Result Comment: LDL IS A CALCULATIONLDL IS ONLY VALID IF THE TRIG IS LESS THAN 400. Performed By: #### 4 1000, 53681, 28163, 07473, 15588, 87147 ####[facility] [place] [address], [facility] Cholesterol mass conc 117 mg/dL Low 120-200 The [facility] Comment on above: Result Comment: CHOL ESTEROL REFERENCE RANGE:20 YEARS AND OLDER CARDIOVASCULAR RISKLess than 200 mg/dl Low Dvjf573 to 239 mg/dl Borderline Frqs948 mg/dl and greater High Risk Performed By: #### 4 1000, 75285, 53663, 88023, 38021, 92782 ####[facility] Cholesterol.total/Cho lesterol in HDL mass ratio 3.0 {ratio} Normal .0-4.5 The [facility] Comment on above: Performed By: #### 4 1000, 59030, 04820, 88924, 32344, 90784 ####[facility] NON-HDL CHOLESTEROL 78 mg/dL Normal [facility] Comment on above: Performed By: #### 4 1000, 60714, 19489, 95136, 38723, 09221 ####[facility] Triglyceride mass conc 131 mg/dL Normal 40-149 The [facility] Comment on above: Result Comment: TRIG LYCERIDE REFERENCE RANGE:20 YEARS AND OLDER CARDIOVASCULAR RISKLESS THAN 150 mg/dl LOW [id number] TO 199 mg/dl BORDERLINE [id number] mg/dl AND GREATER HIGH RISK Performed By: #### 4 1000, 32901, 28650, 06560, 71249, 35100 ####[facility] VLDL CHOL 26 mg/dL Normal 0-40 [facility] Comment on above: Performed By: #### 4 1000, 26723, 79325, 07907, 31539, 66291 ####[facility] [place] [address], [facility] MAGNESIUM BLOODon 05-27-2017 Magnesium mass conc 2.1 mg/dL Normal 1.9-2.7 [facility] Comment on above: Performed By: #### 4 1000, 99650, 94805, 06437, 18934, 05293 ####[facility] [place] [address], [facility] PHOSPHORUS BLOODon 02-27-201 8 Phosphate mass conc 3.5 mg/dL Normal 2.5-5.0 [facility] Comment on above: Performed By: #### 4 1000, 40596, 57720, 24074, 87187, 87738 ####[facility] TACROLIMUSon 05-27-2017 Tacrolimus mass conc (Bld) 4.4 ng/mL Low 5.0-20.0 The [facility] Comment on above: Result Comment: The [employer] Tacrolimus assay is a delayed one-step immunoassayfor the quantitative determination of tacrolimus in human whole bloodusing the chemiluminescent microparticle immunoassay (CMIA) technologywith flexible assay protocols, referred to as Chemiflex. Performed By: #### 4 1000, 00117, 65581, 63801, 32054, 13140 ####[facility] URIC ACID BLOODon 05-27-2017 Urate mass conc 4.6 mg/dL Normal 2.3-6.6 The [facility] Comment on above: Performed By: #### 4 1000, 12885, 34220, 18271, 00605, 20112 ####[facility] CBC W/DIFFon 04-29-2017 ABS BASOPHILS 0.0 10*3/uL Normal 0.0-0.[address] [facility] Comment on above: Performed By: #### 4 1000, 30264, 08279, 70637, 97517, 88938 ####[facility].[address] ABS IMM GRANS 0.0 10*3/uL Normal 0.0-0.[address] [facility] Comment on above: Performed By: #### 4 1000, [id number], [id number], [id number], [id number], [id number] ####[facility] ABS NEUTROPHILS 4.6 10*3/uL Normal 1.6-7.6 [facility] Comment on above: Performed By: #### 4 1000, 23854, 09871, 46998, 00675, 21821 ####[facility] [place] [address], [facility] Basophils Auto #/vol (Bld) 0.3 % Normal 0.0-1.0 The [facility] Comment on above: Performed By: #### 4 1000, 35951, 87075, 17239, 73174, 12198 ####[facility] Eosinophils Auto #/vol (Bld) 0.1 10*3/uL Normal 0.0-0.5 [facility] Comment on above: Performed By: #### 4 1000, 12745, 78167, 06875, 39961, 21373 ####[facility] Eosinophils/100 WBC Auto (Bld) 1.7 % Normal 0.0-6.0 [facility] Comment on above: Performed By: #### 4 1000, 77741, 44414, 82928, 20118, 79314 ####[facility] Erythrocyte distribution width Auto Ratio (RBC) 13.7 % Normal 11.5-15.0 [facility] Comment on above: Performed By: #### 4 1000, 96330, 02043, 08450, 01352, 21440 ####[facility] Hematocrit Auto Volume Fraction (Bld) 45.0 % Normal 36.0-45.[address] [facility] Comment on above: Performed By: #### 4 1000, 62733, 06509, 34490, 06914, 58413 ####[facility] [facility].[address] Hemoglobin mass conc (Bld) 14.9 g/dL Normal 12.0-15.0 [facility] Comment on above: Performed By: #### 4 1000, 09694, 22753, 82621, 93864, 47566 ####[facility] [facility].[address] IMMATURE GRANS 0.3 % Normal 0.0-1.0 [facility] Comment on above: Performed By: #### 4 1000, 65131, 59271, 46285, 50882, 31941 ####[facility] [facility].[address] Lymphocytes Auto #/vol (Bld) 0.9 10*3/uL Low 1.2-4.0 [facility] Comment on above: Performed By: #### 4 1000, 39430, 19659, 92138, 65875, 77892 ####[facility] [facility].[address] Lymphocytes/100 WBC Auto (Bld) 14.2 % Low 20.0-45.0 [facility] Comment on above: Performed By: #### 4 1000, 04731, 80708, 08951, 81683, 80302 ####[facility] [facility].[address] MCH Auto Entitic mass (RBC) 29.4 pg Normal 27.0-33.0 [facility] Comment on above: Performed By: #### 4 1000, 29855, 08679, 31702, 68237, 20737 ####[facility] MCHC Auto mass conc (RBC) 33.1 g/dL Normal 32.0-35.0 [facility] Comment on above: Performed By: #### 4 1000, 21935, 23264, 00366, 87051, 10603 ####[facility] MCV Auto Entitic volume (RBC) 88.8 fL Normal 82.0-98.0 [facility] Comment on above: Performed By: #### 4 1000, 47705, 25931, 79464, 51550, 83297 ####[facility] Monocytes Auto #/vol (Bld) 0.8 10*3/uL Normal 0.1-1.0 [facility] Comment on above: Performed By: #### 4 1000, 32357, 26160, 06728, 56322, 23208 ####[facility] [facility].[address] MONOS 12.2 % High 5.0-12.0 [facility] Comment on above: Performed By: #### 4 1000, 53660, 04070, 06880, 62308, 05926 ####[facility]3000 [facility] Neutrophils/100 WBC Auto (Bld) 71.3 % Normal 40.0-72.0 [facility] Comment on above: Performed By: #### 4 1000, 38075, 38257, 70012, 69981, 92589 ####[facility] Nucleated RBC/100 WBC Ratio (Bld) 0 % Normal 0-0 [facility] Comment on above: Performed By: #### 4 1000, 12740, 43865, 42560, 35685, 17751 ####[facility] PLAT CNT 215 10*3/uL Normal 150-400 The [facility] Comment on above: Performed By: #### 4 1000, 79891, 85332, 20044, 15921, 11997 ####[facility] RBC Auto #/vol (Bld) 5.07 10*6/uL High 3.80-5.00 Th e [facility] Comment on above: Performed By: #### 4 1000, 87675, 58174, 62343, 16307, 21775 ####[facility] WBC Auto #/vol (Bld) 6.5 10*3/uL Normal 4.0-10.6 [facility] Comment on above: Performed By: #### 4 1000, 98540, 15879, 37712, 94692, 77083 ####[facility] COMP METABOLIC PANELon 04-29 Albumin mass conc 4.4 g/dL Normal 3.5-5.7 [facility] Comment on above: Performed By: #### 4 1000, 23734, 81047, 38056, 42028, 40684 ####[facility] ALKALINE PHOSPH 114 IU/L High 34-104 The [facility] Comment on above: Performed By: #### 4 1000, 95767, 60965, 29385, 30400, 00887 ####[facility] ALT enzyme act/vol 15 U/L Normal 7-52 The [facility] Comment on above: Performed By: #### 4 1000, 13521, 33082, 63145, 92132, 35328 ####[facility] AST enzyme act/vol 19 U/L Normal 13-39 The [facility] Comment on above: Performed By: #### 4 1000, 54811, 86933, 24786, 45065, 13695 ####[facility] [place] [address], [facility] Bilirubin mass conc 0.7 mg/dL Normal 0.3-1.0 The [facility] Comment on above: Performed By: #### 4 1000, 18747, 39715, 47720, 31953, 41810 ####[facility] [place] [address], [place] Calcium mass conc 9.6 mg/dL Normal 8.6-10.3 [facility] Comment on above: Performed By: #### 4 1000, 62739, 59596, 45907, 64427, 47248 ####[facility] [place] [address], [facility] Chloride molar conc 103 mmol/L Normal 98-107 [facility] Comment on above: Performed By: #### 4 1000, 84903, 04153, 12672, 97813, 45997 ####[facility] [place] [address], [facility] CO2 molar conc 29 mmol/L Normal 21-[address] [facility] Comment on above: Performed By: #### 4 1000, 99630, 52821, 45276, 84099, 26540 ####[facility] [place] [address], [facility] Creatinine mass conc 0.79 mg/dL Normal 0.60-1.20 The [facility] Comment on above: Performed By: #### 4 1000, 02217, 02396, 06350, 41643, 49803 ####[facility] [place] [address], [place] GFR/1.73 sq M predicted among blacks MDRD vol rate/area (S/P/Bld) mL/min/{1.73_m2} Normal >60 The [facility] Comment on above: Performed By: #### 4 1000, 20915, 09845, 43740, 06228, 97663 ####[facility] [place] [address], [facility] GFR/1.73 sq M predicted among non-blacks MDRD vol rate/area (S/P/Bld) mL/min/{1.73_m2} Normal >60 The [facility] Comment on above: Performed By: #### 4 1000, 11723, 35775, 97731, 04041, 20930 ####[facility] [place] [address], [facility] Glucose mass conc 90 mg/dL Normal 70-100 The [facility] Comment on above: Performed By: #### 4 1000, 04674, 13213, 65346, 90003, 30406 ####[facility] [place] [address], [facility] Potassium molar conc 3.8 mmol/L Normal 3.5-5.1 The [facility] Comment on above: Performed By: #### 4 1000, 93981, 40943, 26412, 56040, 76776 ####[facility] [place] [address], [facility] Protein mass conc 7.2 g/dL Normal 6.0-8.3 The [facility] Comment on above: Performed By: #### 4 1000, 46861, 78067, 74093, 40207, 24375 ####[facility] [place] [address], [facility] Sodium molar conc 140 mmol/L Normal 136-145 The [facility] Comment on above: Performed By: #### 4 1000, 13929, 91038, 10807, 74917, 44172 ####[facility] [place] [address], [facility] Urea nitrogen mass conc 15 mg/dL Normal 7-25 [facility] Comment on above: Performed By: #### 4 1000, 24055, 04334, 76308, 32341, 11781 ####[facility] DIRECT BILIon 04-29-2017 Bilirubin.direct mass conc 0.1 mg/dL Normal 0.0-0.2 [facility] Comment on above: Order Comment: Liver Battery conflicts with Comprehensive Metabolic Panel. Liver Battery canceled and Direct Bilirubin added. Performed By: #### 4 1000, 74756, 17023, 89892, 83678, 52220 ####[facility] EVEROLIMUS [id number] 8 EVEROLIMUS 5.4 ng/mL Normal [facility] Comment on above: Result Comment: Ther [...] the transplantcenter.Test developed and characteristics determined by [employer]. See Compliance Statement B: [employer]/CSPerformed by [employer],[address] [place] [address] zcc.[employer], Leonid Antonio MD - Lab. Director LIPID PROFILEon 04-29-2017 Cholesterol in HDL mass conc 49 mg/dL Normal 23-92 [facility] Comment on above: Result Comment: Slig ht variation in normal range could be due to gender and/or age.HDL CHOLESTEROL REFERENCE RANGE:20 years and older Cardiovascular Risk> or =60 mg/dL Mbegkzism58 TO 59 mg/dL Low Risk<40 mg/dL High Risk Performed By: #### 4 1000, 23415, 86969, 49775, 94044, 44734 ####[facility] [place] [address], [facility] Cholesterol in LDL mass conc 52 mg/dL Normal 0-130 The [facility] Comment on above: Result Comment: LDL IS A CALCULATIONLDL IS ONLY VALID IF THE TRIG IS LESS THAN 400. Performed By: #### 4 1000, 02248, 52958, 57695, 33792, 29373 ####[facility] [place] [address], [facility] Cholesterol mass conc 122 mg/dL Normal 120-200 [facility] Comment on above: Result Comment: CHOL ESTEROL REFERENCE RANGE:20 YEARS AND OLDER CARDIOVASCULAR RISKLess than 200 mg/dl Low Ddmo381 to 239 mg/dl Borderline Umko021 mg/dl and greater High Risk Performed By: #### 4 1000, 23605, 35200, 37576, 57538, 80207 ####[facility] [place] [address], [facility] Cholesterol.total/Cho lesterol in HDL mass ratio 2.5 {ratio} Normal .0-4.5 [facility] Comment on above: Performed By: #### 4 1000, 68613, 51739, 51133, 17462, 44906 ####[facility] [place] [address], [place] NON-HDL CHOLESTEROL 73 mg/dL Normal [facility] Comment on above: Performed By: #### 4 1000, 91417, 99170, 61402, 30626, 21591 ####[facility] Triglyceride mass conc 106 mg/dL Normal 40-149 [facility] Comment on above: Result Comment: TRIG LYCERIDE REFERENCE RANGE:20 YEARS AND OLDER CARDIOVASCULAR RISKLESS THAN 150 mg/dl LOW [id number] TO 199 mg/dl BORDERLINE ORTN454 mg/dl AND GREATER HIGH RISK Performed By: #### 4 1000, 08335, 06407, 48386, 31457, 40792 ####[facility] VLDL CHOL 21 mg/dL Normal 0-40 [facility] Comment on above: Performed By: #### 4 1000, 59484, 22797, 87199, 35991, 54802 ####[facility] [facility] MAGNESIUM BLOODon 04-29-2017 Magnesium mass conc 2.1 mg/dL Normal 1.9-2.7 [facility] Comment on above: Performed By: #### 4 1000, 68138, 85924, 87575, 31737, 41951 ####[facility]3000 [facility] PHOSPHORUS BLOODon 8 Phosphate mass conc 3.3 mg/dL Normal 2.5-5.0 [facility] Comment on above: Performed By: #### 4 1000, 50578, 25899, 71272, 97383, 20736 ####[facility] TACROLIMUSon 04-29-2017 Tacrolimus mass conc (Bld) 4.6 ng/mL Low 5.0-20.0 [facility] Comment on above: Result Comment: The [employer] Tacrolimus assay is a delayed one-step immunoassayfor the quantitative determination of tacrolimus in human whole bloodusing the chemiluminescent microparticle immunoassay (CMIA) technologywith flexible assay protocols, referred to as Chemiflex. Performed By: #### 4 1000, 78306, 50139, 82357, 89197, 98218 ####[facility] URIC ACID BLOODon 04-29-2017 Urate mass conc 4.6 mg/dL Normal 2.3-6.6 [facility] Comment on above: Performed By: #### 4 1000, 73184, 18849, 84256, 50578, 04848 ####[facility] CBC W/DIFFon 03-27-2017 Basophils Auto #/vol (Bld) 0.2 % Normal 0.0-2.0 [facility] Comment on above: Performed By: #### 4 1000, 22083, 46373, 14731, 14828, 49786 ####[facility] Eosinophils/100 WBC Auto (Bld) 1.8 % Normal 0.0-5.0 [facility] Comment on above: Performed By: #### 4 1000, 17876, 92253, 08853, 91925, 24314 ####[facility] Erythrocyte distribution width Auto Ratio (RBC) 13.6 % Normal 11.5-16.9 [facility] Comment on above: Performed By: #### 4 1000, 71875, 00812, 91152, 43016, 79030 ####[facility] Hematocrit Auto Volume Fraction (Bld) 47.6 % Normal 36.0-48.[address] [facility] Comment on above: Performed By: #### 4 1000, 72190, 24390, 62293, 07115, 81378 ####[facility] Hemoglobin mass conc (Bld) 15.8 g/dL High 12.0-15.0 [facility] Comment on above: Performed By: #### 4 1000, 43321, 31924, 45013, 57881, 60463 ####[facility] Lymphocytes/100 WBC Auto (Bld) 14.5 % Low 20.0-40.0 [facility] Comment on above: Performed By: #### 4 1000, 09035, 23777, 08667, 98764, 67196 ####[facility] MCH Auto Entitic mass (RBC) 29.0 pg Normal 24.0-32.0 [facility] Comment on above: Performed By: #### 4 1000, 93556, 08712, 63917, 79590, 74478 ####[facility] MCHC Auto mass conc (RBC) 33.3 g/dL Normal 32.0-36.0 [facility] Comment on above: Performed By: #### 4 1000, 00243, 37745, 16345, 21245, 70226 ####[facility] MCV Auto Entitic volume (RBC) 87.4 fL Normal 80.0-100.0 [facility] Comment on above: Performed By: #### 4 1000, 65200, 98791, 88276, 88391, 27216 ####[facility] METHOD Normal RBC Morphology Normal [facility] Comment on above: Performed By: #### 4 1000, 72171, 06001, 45143, 38860, 09922 ####[facility] MONOS 9.6 % High 2-8 [facility] Comment on above: Performed By: #### 4 1000, 34046, 97315, 08601, 13176, 88872 ####[facility] [place] [address], [facility] Neutrophils/100 WBC Auto (Bld) 73.9 % High 50-70 [facility] Comment on above: Performed By: #### 4 1000, 73789, 68472, 47260, 85363, 32505 ####[facility] [place] [address], [facility] PLAT CNT 228 Thou/mm3 Normal 100-400 The [facility] Comment on above: Performed By: #### 4 1000, 24874, 66722, 71083, 26271, 52796 ####[facility] [place] [address], [facility] RBC Auto #/vol (Bld) 5.45 mill/mm3 Normal 3.50-5.50 T he [facility] Comment on above: Performed By: #### 4 1000, 92531, 25466, 05145, 33921, 14509 ####[facility] [place] [address], [facility] WBC Auto #/vol (Bld) 6.5 Thou/mm3 Normal 4.0-10.0 Th e [facility] Comment on above: Performed By: #### 4 1000, 34466, 35686, 40274, 17937, 65799 ####[facility] [place] [address], [facility] COMP METABOLIC PANELon 03-27 Albumin mass conc 4.7 g/dL Normal 3.5-5.7 [facility] Comment on above: Performed By: #### 4 1000, 61704, 88742, 91623, 21133, 91084 ####[facility] ALKALINE PHOSPH 99 IU/L Normal 34-104 [facility] Comment on above: Performed By: #### 4 1000, 90750, 95919, 76256, 60325, 54619 ####[facility] [id number], [place] ALT enzyme act/vol 19 U/L Normal 7-52 The [facility] Comment on above: Performed By: #### 4 1000, 36674, 09317, 88816, 03707, 57019 ####[facility] [place] [address], [place] AST enzyme act/vol 21 U/L Normal 13-39 The [facility] Comment on above: Performed By: #### 4 1000, 20266, 76053, 19879, 62949, 56736 ####[facility] [place] [address], [facility] Bilirubin mass conc 0.6 mg/dL Normal 0.3-1.0 [facility] Comment on above: Performed By: #### 4 1000, 85375, 49331, 80053, 25284, 81187 ####[facility] [place] [address], [facility] Calcium mass conc 10.2 mg/dL Normal 8.6-10.3 [facility] Comment on above: Performed By: #### 4 1000, 21375, 75119, 24874, 79730, 30852 ####[facility] [id number], [place] Chloride molar conc 104 mmol/L Normal 98-107 [facility] Comment on above: Performed By: #### 4 1000, 97288, 56335, 86742, 00556, 51132 ####[facility] [id number], [place] CO2 molar conc 28 mmol/L Normal 21-31 [facility] Comment on above: Performed By: #### 4 1000, 84208, 03004, 47112, 44381, 50770 ####[facility] [facility] [place] [address], [facility] Creatinine mass conc 0.78 mg/dL Normal 0.60-1.20 [facility] Comment on above: Performed By: #### 4 1000, 40704, 20032, 44493, 56217, 30886 ####[facility] [facility] [place] [address], [facility] GFR/1.73 sq M predicted among blacks MDRD vol rate/area (S/P/Bld) mL/min/{1.73_m2} Normal >60 The [facility] Comment on above: Performed By: #### 4 1000, 06784, 64683, 68187, 86982, 60967 ####[facility] [facility] [place] [address], [facility] GFR/1.73 sq M predicted among non-blacks MDRD vol rate/area (S/P/Bld) mL/min/{1.73_m2} Normal >60 The [facility] Comment on above: Performed By: #### 4 1000, 70608, 73412, 71737, 57859, 12598 ####[facility] [facility] [place] [address], [facility] Glucose mass conc 87 mg/dL Normal 70-100 [facility] Comment on above: Performed By: #### 4 1000, 60214, 27010, 43619, 21565, 66737 ####[facility]3000 [facility] [place] [address], [facility] Potassium molar conc 4.1 mmol/L Normal 3.5-5.1 [facility] Comment on above: Performed By: #### 4 1000, 57117, 65029, 60887, 87103, 08991 ####[facility] Protein mass conc 7.8 g/dL Normal 6.0-8.3 [facility] Comment on above: Performed By: #### 4 1000, 41986, 53724, 45814, 53159, 09699 ####[facility] Sodium molar conc 139 mmol/L Normal 136-145 [facility] Comment on above: Performed By: #### 4 1000, 36307, 51558, 58279, 62050, 36161 ####[facility] Urea nitrogen mass conc 19 mg/dL Normal 7-25 [facility] Comment on above: Performed By: #### 4 1000, 96421, 85164, 63815, 93942, 61657 ####[facility] DIRECT BILIon 03-27-2017 Bilirubin.direct mass conc 0.1 mg/dL Normal 0.0-0.2 [facility] Comment on above: Performed By: #### 4 1000, 95549, 01834, 14513, 96303, 19457 ####[facility] EVEROLIMUS 11988qc 7 EVEROLIMUS 5.3 ng/mL Normal The [facility] Comment on above: Result Comment: Ther [...] the transplantcenter.Test developed and characteristics determined by [employer]. See Compliance Statement B: [employer]/CSPerformed by [employer],[address] [place] [id number] twg.[employer], Leonid Antonio MD - Lab. Director LIPID PROFILEon 03-27-2017 Cholesterol in HDL mass conc 50 mg/dL Normal 23-92 The [facility] Comment on above: Result Comment: Slig ht variation in normal range could be due to gender and/or age.HDL CHOLESTEROL REFERENCE RANGE:20 years and older Cardiovascular Risk> or =60 mg/dL Kavbrsoqv81 TO 59 mg/dL Low Risk<40 mg/dL High Risk Performed By: #### 4 1000, 15284, 82169, 91512, 57756, 55317 ####[facility] Cholesterol in LDL mass conc 66 mg/dL Normal 0-130 [facility] Comment on above: Result Comment: LDL IS A CALCULATIONLDL IS ONLY VALID IF THE TRIG IS LESS THAN 400. Performed By: #### 4 1000, 53088, 30109, 54111, 25402, 58944 ####[facility] [place] [address], [facility] Cholesterol mass conc 147 mg/dL Normal 120-200 [facility] Comment on above: Result Comment: CHOL ESTEROL REFERENCE RANGE:20 YEARS AND OLDER CARDIOVASCULAR RISKLess than 200 mg/dl Low Sgov036 to 239 mg/dl Borderline Wmyf094 mg/dl and greater High Risk Performed By: #### 4 1000, 02164, 44502, 85081, 83058, 46259 ####[facility] [place] [address], [facility] Cholesterol.total/Cho lesterol in HDL mass ratio 2.9 {ratio} Normal .0-4.5 The [facility] Comment on above: Performed By: #### 4 1000, 36838, 97069, 36343, 77642, 25479 ####[facility] NON-HDL CHOLESTEROL 97 mg/dL Normal [facility] Comment on above: Performed By: #### 4 1000, 02028, 87217, 72488, 38086, 45734 ####[facility] Triglyceride mass conc 157 mg/dL High 40-149 The [facility] Comment on above: Result Comment: TRIG LYCERIDE REFERENCE RANGE:20 YEARS AND OLDER CARDIOVASCULAR RISKLESS THAN 150 mg/dl LOW [id number] TO 199 mg/dl BORDERLINE WIYA477 mg/dl AND GREATER HIGH RISK Performed By: #### 4 1000, 88643, 76177, 63232, 27435, 79708 ####[facility] VLDL CHOL 31 mg/dL Normal 0-40 [facility] Comment on above: Performed By: #### 4 1000, 49965, 01686, 07059, 01917, 71045 ####[facility] [place] [address], [facility] MAGNESIUM BLOODon 03-27-2017 Magnesium mass conc 1.9 mg/dL Normal 1.9-2.7 [facility] Comment on above: Performed By: #### 4 1000, 09329, 61101, 74849, 59700, 24564 ####[facility] [place] [address], [facility] PHOSPHORUS BLOODon 7 Phosphate mass conc 3.4 mg/dL Normal 2.5-5.0 [facility] Comment on above: Performed By: #### 4 1000, 55178, 27239, 59465, 25320, 01182 ####[facility] TACROLIMUSon 03-27-2017 Tacrolimus mass conc (Bld) 3.7 ng/mL Low 5.0-20.0 The [facility] Comment on above: Result Comment: The [employer] Tacrolimus assay is a delayed one-step immunoassayfor the quantitative determination of tacrolimus in human whole bloodusing the chemiluminescent microparticle immunoassay (CMIA) technologywith flexible assay protocols, referred to as Chemiflex. Performed By: #### 4 1000, 05857, 19218, 36824, 73072, 49565 ####[facility] [address] URIC ACID BLOODon 03-27-2017 Urate mass conc 4.1 mg/dL Normal 2.3-6.6 The [facility] Comment on above: Performed By: #### 4 1000, 22920, 22745, 63127, 89795, 74303 ####[facility] BK VIRUS QUANTITATION PCR BL OODon 02-26-2017 BKV QUANT PCR Not detected Normal [facility] Comment on above: Result Comment: Meth od: BK virus was measured by quantitative polymerase chain reactionusing a TaqMan probe targeting the polyomavirus BK TEST FIXTURE ASSEMBLER-1 gene.The lower limit of quantitation of the assay is 500 copies of BK genomeper milliliter of plasma or urine, and any detectable BK DNA below thatlevel is reported as: Detected, <500 copies/ml. Serial BK virusmeasurement can be used to monitor disease activity. (Reference:Kelsie vaughanl. J CLIN MICRO 2004; 42:3570-1056).This test was developed and its performance characteristics determinedby the [facility]. It has not been approvedby the US Food and Drug Administration. However, such approval is notrequired for clinical implementation, and test results have been shownto be clinically useful. This laboratory is CAP accredited and CLIAcertified to perform high complexity testing. Performed By: #### 4 1000, 05812, 38427, 95820, 64547, 94887 ####[facility] LOG 10 COPIES Not detected Normal [facility] Comment on above: Performed By: #### 4 1000, 29334, 57539, 89240, 69201, 34758 ####[facility] CBC W/DIFFon 02-26-2017 Basophils Auto #/vol (Bld) 0.3 % Normal 0.0-2.0 The [facility] Comment on above: Performed By: #### 5 0103 ####[place] [id number] [facility].[address] Eosinophils/100 WBC Auto (Bld) 2.2 % Normal 0.0-5.0 [facility] Comment on above: Performed By: #### 5 0103 ####[place] [address] [address] Erythrocyte distribution width Auto Ratio (RBC) 13.8 % Normal 11.5-16.9 [facility] Comment on above: Performed By: #### 5 0103 ####[place] [address] [facility].[address] Hematocrit Auto Volume Fraction (Bld) 44.9 % Normal 36.0-48.[address] [facility] Comment on above: Performed By: #### 5 0103 ####[place] [address] Hemoglobin mass conc (Bld) 15.0 g/dL Normal 12.0-15.0 [facility] Comment on above: Performed By: #### 5 0103 ####[facility] [place] [address], [facility] Lymphocytes/100 WBC Auto (Bld) 18.9 % Low 20.0-40.0 [facility] Comment on above: Performed By: #### 5 0103 ####[facility] [place] [address], [facility] MCH Auto Entitic mass (RBC) 28.9 pg Normal 24.0-32.0 The [facility] Comment on above: Performed By: #### 5 0103 ####[facility] MCHC Auto mass conc (RBC) 33.4 g/dL Normal 32.0-36.0 [facility] Comment on above: Performed By: #### 5 0103 ####[facility].[address] MCV Auto Entitic volume (RBC) 86.6 fL Normal 80.0-100.0 The [facility] Comment on above: Performed By: #### 5 0103 ####[facility].[address] METHOD Normal RBC Morphology Normal The [facility] Comment on above: Performed By: #### 5 3 ####[facility].[address] MONOS 11.7 % High 2-8 The [facility] Comment on above: Performed By: #### 5 0103 ####[facility] [place] [address], [facility] Neutrophils/100 WBC Auto (Bld) 66.9 % Normal 50-70 The [facility] Comment on above: Performed By: #### 5 0103 ####[facility] [place] [address], [facility] PLAT CNT 230 Thou/mm3 Normal 100-400 The [facility] Comment on above: Performed By: #### 5 0103 ####[facility] [place] [address], [facility] RBC Auto #/vol (Bld) 5.18 mill/mm3 Normal 3.50-5.50 T he [facility] Comment on above: Performed By: #### 5 0103 ####[facility] WBC Auto #/vol (Bld) 5.8 Thou/mm3 Normal 4.0-10.0 Th e [facility] Comment on above: Performed By: #### 5 0103 ####[facility] COMP METABOLIC PANELon 02-26 Albumin mass conc 4.7 g/dL Normal 3.5-5.7 The [facility] Comment on above: Performed By: #### 4 1000, 70015, 96609, 83414, 57203, 43940 ####[facility] ALKALINE PHOSPH 115 IU/L High 34-104 [facility] Comment on above: Performed By: #### 4 1000, 09667, 69691, 73303, 29651, 02578 ####[facility] ALT enzyme act/vol 18 U/L Normal 7-52 The [facility] Comment on above: Performed By: #### 4 1000, 07893, 74241, 40975, 93851, 18567 ####[facility] AST enzyme act/vol 22 U/L Normal 13-39 The [facility] Comment on above: Performed By: #### 4 1000, 51182, 31057, 77868, 23867, 45770 ####[facility] [place] [address], [place] Bilirubin mass conc 0.6 mg/dL Normal 0.3-1.0 The [facility] Comment on above: Performed By: #### 4 1000, 92154, 48191, 81135, 00321, 00221 ####[facility] [place] [address], [place] Calcium mass conc 9.8 mg/dL Normal 8.6-10.3 [facility] Comment on above: Performed By: #### 4 1000, 84438, 75386, 98802, 94291, 09215 ####[facility] [place] [address], [place] Chloride molar conc 103 mmol/L Normal 98-107 [facility] Comment on above: Performed By: #### 4 1000, 73198, 40039, 01607, 86182, 72226 ####[facility] [place] [address], [place] CO2 molar conc 29 mmol/L Normal 21-[address] [facility] Comment on above: Performed By: #### 4 1000, 53558, 24370, 73511, 23375, 76677 ####[facility] [place] [address], [place] Creatinine mass conc 0.78 mg/dL Normal 0.60-1.20 The [facility] Comment on above: Performed By: #### 4 1000, 89580, 24204, 86530, 46929, 10084 ####[facility] [place] [address], [facility] GFR/1.73 sq M predicted among blacks MDRD vol rate/area (S/P/Bld) mL/min/{1.73_m2} Normal >60 The [facility] Comment on above: Performed By: #### 4 1000, 65809, 02471, 11997, 74553, 41033 ####[facility] [place] [address], [facility] GFR/1.73 sq M predicted among non-blacks MDRD vol rate/area (S/P/Bld) mL/min/{1.73_m2} Normal >60 The [facility] Comment on above: Performed By: #### 4 1000, 75635, 80883, 51403, 59085, 10563 ####[facility] [place] [address], [facility] Glucose mass conc 94 mg/dL Normal 70-100 The [facility] Comment on above: Performed By: #### 4 1000, 26445, 44312, 60365, 47187, 30956 ####[facility] [place] [address], [facility] Potassium molar conc 3.8 mmol/L Normal 3.5-5.1 The [facility] Comment on above: Performed By: #### 4 1000, 65322, 55167, 80619, 48222, 04028 ####[facility] [place] [address], [facility] Protein mass conc 7.4 g/dL Normal 6.0-8.3 The [facility] Comment on above: Performed By: #### 4 1000, 97299, 87435, 62153, 67935, 51676 ####[facility] [place] [address], [place] Sodium molar conc 136 mmol/L Normal 136-145 The [facility] Comment on above: Performed By: #### 4 1000, 92910, 83849, 18352, 49244, 70942 ####[facility] [place] [address], [place] Urea nitrogen mass conc 19 mg/dL Normal 7-25 The [facility] Comment on above: Performed By: #### 4 1000, 70540, 96847, 42868, 89490, 32295 ####[facility] DIRECT BILIon 02-26-2017 Bilirubin.direct mass conc 0.1 mg/dL Normal 0.0-0.2 [facility] Comment on above: Performed By: #### 4 1000, 97218, 93328, 87774, 83632, 55562 ####[facility] EVEROLIMUS 11056vz 7 EVEROLIMUS 5.9 ng/mL Normal The [facility] Comment on above: Result Comment: Ther [...] the transplantcenter.Test developed and characteristics determined by [facility]. See Compliance Statement B: [employer]/CSPerformed by [employer],[address] [place] [address] lam.[employer], Leonid Antonio MD - Lab. Director HEMOGLOBIN A1Con 02-26-2017 Glucose mass conc 108 mg/dL Normal 70-126 [facility] Comment on above: Performed By: #### 4 6447, 97107 ####[facility] Hemoglobin A1c/Hemoglobin.total mass fraction (Bld) 5.4 % Normal 4.0-6.0 The [facility] Comment on above: Performed By: #### 4 6447, 62411 ####[facility] LIPID PROFILEon 02-26-2017 Cholesterol in HDL mass conc 54 mg/dL Normal 23-92 [facility] Comment on above: Result Comment: Slig ht variation in normal range could be due to gender and/or age.HDL CHOLESTEROL REFERENCE RANGE:20 years and older Cardiovascular Risk> or =60 mg/dL Irfgtrdzr32 TO 59 mg/dL Low Risk<40 mg/dL High Risk Performed By: #### 4 1000, 90396, 32349, 40477, 44846, 13852 ####[facility] [place] [address], [facility] Cholesterol in LDL mass conc 70 mg/dL Normal 0-130 [facility] Comment on above: Result Comment: LDL IS A CALCULATIONLDL IS ONLY VALID IF THE TRIG IS LESS THAN 400. Performed By: #### 4 1000, 23197, 58931, 56467, 19466, 06994 ####[facility] [place] [address], [facility] Cholesterol mass conc 144 mg/dL Normal 120-200 [facility] Comment on above: Result Comment: CHOL ESTEROL REFERENCE RANGE:20 YEARS AND OLDER CARDIOVASCULAR RISKLess than 200 mg/dl Low Ypan792 to 239 mg/dl Borderline Wouw298 mg/dl and greater High Risk Performed By: #### 4 1000, 15100, 52424, 66384, 86200, 40942 ####[facility] [place] [address], [facility] Cholesterol.total/Cho lesterol in HDL mass ratio 2.7 {ratio} Normal .0-4.5 The [facility] Comment on above: Performed By: #### 4 1000, 33296, 00479, 68995, 46589, 24077 ####[facility] NON-HDL CHOLESTEROL 90 mg/dL Normal [facility] Comment on above: Performed By: #### 4 1000, 57084, 88011, 43103, 49334, 89224 ####[facility] Triglyceride mass conc 101 mg/dL Normal 40-149 The [facility] Comment on above: Result Comment: TRIG LYCERIDE REFERENCE RANGE:20 YEARS AND OLDER CARDIOVASCULAR RISKLESS THAN 150 mg/dl LOW [id number] TO 199 mg/dl BORDERLINE [id number] mg/dl AND GREATER HIGH RISK Performed By: #### 4 1000, 97872, 45771, 11293, 50014, 34389 ####[facility] VLDL CHOL 20 mg/dL Normal 0-40 [facility] Comment on above: Performed By: #### 4 1000, 21054, 29645, 16349, 34097, 35481 ####[facility] MAGNESIUM BLOODon 02-26-2017 Magnesium mass conc 1.9 mg/dL Normal 1.9-2.7 [facility] Comment on above: Performed By: #### 4 1000, 14484, 75405, 32364, 78988, 59939 ####[facility] PHOSPHORUS BLOODon 7 Phosphate mass conc 4.1 mg/dL Normal 2.5-5.0 [facility] Comment on above: Performed By: #### 4 1000, 61603, 39758, 58324, 57142, 57177 ####[facility] TACROLIMUSon 02-26-2017 Tacrolimus mass conc (Bld) 4.2 ng/mL Low 5.0-20.0 The [facility] Comment on above: Result Comment: The [employer] Tacrolimus assay is a delayed one-step immunoassayfor the quantitative determination of tacrolimus in human whole bloodusing the chemiluminescent microparticle immunoassay (CMIA) technologywith flexible assay protocols, referred to as Chemiflex. Performed By: #### 4 6447, 53875 ####[place] [address] [address] URIC ACID BLOODon 02-26-2017 Urate mass conc 4.3 mg/dL Normal 2.3-6.6 [facility] Comment on above: Performed By: #### 4 1000, 81607, 35762, 61870, 90369, 94871 ####[place] [address] [address] Vital Signs Date Time Vital Sign Value Performing Clinician Facility 08-30-2023 09:220400 Body height 182.88 cm [facility] 08-30-2023 09:22-0400 Body mass index (BMI) [Ratio] 17.9 kg/m2 [facility] 08-30-2023 09:22-0400 Body temperature 99.8 [degF] [facility] 08-30-2023 09:220400 Body weight 59.87 kg [facility] 08-30-2023 09:22-0400 Diastolic blood pressure 73 mm[Hg] [facility] 08-30-2023 09:22-0400 Heart rate 67 /min [facility] 08-30-2023 09:22-0400 SaO2% (BldA) [Mass fraction] 95 % [facility] 08-30-2023 09:22-0400 Systolic blood pressure 111 mm[Hg] [facility] 03-27-2023 11:30-0500 Body height 152.4 cm Cathy Bella Other [facility] Other 03-27-2023 11:30-0500 Body mass index (BMI) [Ratio] 25.39 kg/m2 Cathy Bella Other [facility] Other 03-27-2023 11:30-0500 Body temperature 97.5 [degF] Cathy Bella Other [facility] Other 03-27-2023 11:30-0500 Body weight 58.97 kg Cathy Bella Other [facility] Other 03-27-2023 11:30-0500 Respiratory rate 18 /min Cathy Bella Other [facility] Other 03-27-2023 11:30-0500 SaO2% (BldA) [Mass fraction] 96 % Cathy Bella Other [facility] Other 09-21-2022 09:00-0400 Body height 152.4 cm Martha Paola Other [facility] Other 09-21-2022 09:00-0400 Body mass index (BMI) [Ratio] 22.46 kg/m2 Martha Paola Other [facility] Other 09-21-2022 09:00-0400 Body temperature 97.6 [degF] Martha Paola Other [facility] Other 09-21-2022 09:00-0400 Body weight 52.16 kg Martha Paola Other [facility] Other 09-21-2022 09:00-0400 Diastolic blood pressure 70 mm[Hg] Martha Guevara Other [facility] Other 09-21-2022 09:00-0400 Respiratory rate 18 /min Martha Guevara Other [facility] Other 09-21-2022 09:00-0400 SaO2% (BldA) [Mass fraction] 96 % Martha Guevara Other [facility] Other 09-21-2022 09:00-0400 Systolic blood pressure 107 mm[Hg] Martha Guevara Other [facility] Other 01-12-2022 13:55-0400 Body height 152.4 cm Cathy Bella Other [facility] Other 01-12-2022 13:55-0400 Body mass index (BMI) [Ratio] 19.53 kg/m2 Cathy Bella Other [facility] Other 01-12-2022 13:55-0400 Body temperature 96.9 [degF] Cathy Bella Other [facility] Other 01-12-2022 13:55-0400 Body weight 45.36 kg Cathy Bella Other [facility] Other 01-12-2022 13:55-0400 Respiratory rate 18 /min Cathy Bella Other [facility] Other 01-12-2022 13:55-0400 SaO2% (BldA) [Mass fraction] 97 % Cathy Bella Other [facility] Other 12-28-2021 10:20-0400 Body height 152.4 cm Martha Paola Other [facility] Other 12-28-2021 10:20-0400 Body mass index (BMI) [Ratio] 21.48 kg/m2 Martha Guevara Other [facility] Other 12-28-2021 10:20-0400 Body temperature 98 [degF] Martha Smithmond Other [facility] Other 12-28-2021 10:20-0400 Body weight 49.9 kg Martha Guevara Other [facility] Other 12-28-2021 10:20-0400 Respiratory rate 18 /min Martha Guevara Other [facility] Other 12-28-2021 10:20-0400 SaO2% (BldA) [Mass fraction] 97 % Martha Guevara Other [facility] Other 12-25-2021 10:05-0400 Body height 152.4 cm Cathy Baconler Other [facility] Other 12-25-2021 10:05-0400 Body mass index (BMI) [Ratio] 21.48 kg/m2 Cathy Bella Other [facility] Other 12-25-2021 10:05-0400 Body temperature 96 [degF] Cathy Bella Other [facility] Other 12-25-2021 10:05-0400 Body weight 49.9 kg Cathy Bella Other [facility] Other 12-25-2021 10:05-0400 Respiratory rate 18 /min Cathy Bella Other [facility] Other 12-25-2021 10:05-0400 SaO2% (BldA) [Mass fraction] 97 % Cathy Bella Other [facility] Other 10-27-2021 12:35-0400 Body height 152.4 cm Cathy Bella Other [facility] Other 10-27-2021 12:35-0400 Body mass index (BMI) [Ratio] 22.85 kg/m2 Cathy Bella Other [facility] Other 10-27-2021 12:35-0400 Body weight 53.07 kg Cathy Bella Other [facility] Other 10-27-2021 12:35-0400 Diastolic blood pressure 87 mm[Hg] Cathy Bella Other [facility] Other 10-27-2021 12:35-0400 SaO2% (BldA) [Mass fraction] 98 % Cathy Bella Other [facility] Other 10-27-2021 12:35-0400 Systolic blood pressure 130 mm[Hg] Cathy Bella Other [facility] Other 08-14-2021 10:40-0400 Body height 152.4 cm Martha Guevara Other [facility] Other 08-14-2021 10:40-0400 Body mass index (BMI) [Ratio] 22.46 kg/m2 Marthajd Guevara Other [facility] Other 08-14-2021 10:40-0400 Body temperature 96.7 [degF] Marthajd Guevara Other [facility] Other 08-14-2021 10:40-0400 Body weight 52.16 kg Martha Smithmond Other [facility] Other 08-14-2021 10:40-0400 Diastolic blood pressure 68 mm[Hg] Martha Paola Other [facility] Other 08-14-2021 10:40-0400 Respiratory rate 20 /min Martha Paola Other [facility] Other 08-14-2021 10:40-0400 SaO2% (BldA) [Mass fraction] 98 % Martha Guevara Other [facility] Other 08-14-2021 10:40-0400 Systolic blood pressure 144 mm[Hg] Martha Guevara Other [facility] Other Encounters Encounter Date Encounter Type Care Provider Facility Start: 09-23-2023 End: 09-23-2023 ambulatory VIRGIL HAYNES [facility] Start: 09-02-2023 End: 09-02-2023 ambulatory ESTER PADILLA Not Available Start: 08-30-2023 End: 08-30-2023 ambulatory [facility] Work Phone: Start: 08-30-2023 End: 08-30-2023 Patient encounter procedure [facility] Work Phone: Start: 04-02-2023 End: 04-02-2023 ambulatory RAMON CARROLL Not Available Start: 03-27-2023 End: 03-27-2023 ambulatory Cathy Bella Other [facility] Other Start: 03-27-2023 Office outpatient visit 25 minutes Cathy Bella [facility] Start: 03-17-2023 End: 03-17-2023 ambulatory VIRGIL HAYNES [facility] Start: 03-06-2023 End: 03-06-2023 ambulatory ESTER PADILLA Not Available Start: 02-12-2023 End: 02-12-2023 ambulatory ESTER PADILLA Not Available Start: 09-21-2022 End: 09-21-2022 ambulatory Martha Guevara Other [facility] Other Start: 09-21-2022 Office outpatient visit 15 minutes Martha Paola [facility] Start: 08-12-2022 End: 08-13-[address] DOE BRIDGES Facility:[facility] Start: 07-23-2022 End: 07-24-[address] RAMON CARROLL Facility:[facility] Start: 07-08-2022 End: 07-09-[address] RAMON CARROLL Facility:[facility] Start: 06-10-2022 End: 06-11-[address] ODE BRIDGES Facility:[facility] Start: 05-10-2022 End: 05-11-[address] DOE BRIDGES Facility:[facility] Start: 04-08-2022 End: 04-09-[address] DOE BRIDGES Facility:[facility] Start: 03-11-2022 End: 03-12-[address] DOCTOR CERNA Facility:[facility] Start: 02-08-2022 End: 02-09-[address] DOE BRIDGES Facility:[facility] Start: 01-28-2022 End: 01-29-[address] DOCTOR CERNA Facility:[facility] Start: 01-12-2022 End: 01-12-2022 ambulatory Cathy Bella Other [facility] Other Start: 01-12-2022 Office outpatient visit 15 minutes Cathy Bella [facility] Start: 01-07-2022 End: 01-07-2022 ambulatory ISATU Ziegler Facility:[facility] Start: 01-03-2022 End: 01-04-[address] VIRGIL SWIFT Facility:[facility] Start: 12-28-2021 End: 12-28-2021 ambulatory Martha Paola Other [facility] Other Start: 12-28-2021 Office outpatient visit 15 minutes Martha Paola [facility] Start: 12-25-2021 End: 12-25-2021 ambulatory Cathy Bella Other [facility] Other Start: 12-25-2021 Office outpatient visit 25 minutes Cathy Bella [facility] Start: 12-05-2021 End: 12-06-[address] DOCTOR MISC Facility:[facility] Start: 11-07-2021 End: 11-08-[address] DOCTOR MISC Facility:[facility] Start: 10-27-2021 End: 10-27-2021 ambulatory Cathy Bella Other [facility] Other Start: 10-27-2021 Office outpatient visit 15 minutes Cathy Bella [facility] Start: 10-15-2021 End: 10-16-[address] DOCTOR MISC Facility:[facility] Start: 10-08-2021 End: 10-09-[address] DOCTOR MISC Facility:[facility] Start: 09-10-2021 End: 09-11-[address] DOCTOR MISC Facility:[facility] Start: 08-14-2021 End: 08-14-2021 ambulatory Martha Paola Other [facility] Other Start: 08-14-2021 Office outpatient visit 15 minutes Martha Paola [facility] Start: 12-31-2017 End: 01-01-2018 Patient encounter VIRGIL HAYNES Facility:[facility] Start: 12-25-2017 End: 12-26-2017 Patient encounter ROSALINDA ROSENBAUM Facility:[facility] Start: 10-30-2017 End: 10-31-2017 Patient encounter ROSALINDA ROSENBAUM Facility:[facility] Start: 10-23-2017 End: 10-24-2017 Patient encounter ROSALINDA ROSENBAUM Facility:[facility] Start: 09-25-2017 End: 09-26-2017 Patient encounter ROSALINDA ROSENBAUM Facility:[facility] Start: 08-26-2017 End: 08-27-2017 Patient encounter ROSALINDA ROSENBAUM Facility:[facility] Start: 07-23-2017 End: 07-24-2017 Patient encounter ROSALINDA ROSENBAUM Facility:[facility] Start: 06-20-2017 End: 06-21-2017 Patient encounter ROSALINDA ROSENBAUM Facility:[facility] Start: 05-27-2017 End: 05-28-2017 Patient encounter ROSALINDA ROSENBAUM Facility:[facility] Start: 04-29-2017 End: 04-30-2017 Patient encounter ROSALINDA ROSENBAUM Facility:[facility] Start: 03-27-2017 End: 03-28-2017 Patient encounter ROSALINDA ROSENBAUM Facility:[facility] Start: 02-26-2017 End: 02-27-2017 Patient encounter DOE BRIDGES Facility:[facility] Procedures Date Procedure Procedure Detail Performing Clinician Start: 08-30-2023 Quick Strep (POC) Start: 08-14-2021 Piperacillin/tazobactam Martha Guevara Other Immunizations Immunization Date Immunization Notes Care Provider [facility] 03-16-2009 influenza virus vaccine, split virus (incl. purified surface antigen) Martha Guevara Other [facility] Other 03-16-2009 influenza virus vaccine, unspecified formulation [facility] Payers Date Payer Category Payer [facility] [id number] 1959 Self-pay 1959 Unknown [id number] 1956 Unknown [id number] 2.16.8 40.1.896090.3.579.2.647 1956 Unknown [id number] 2.16.8 40.1.160623.3.579.2.647 1956 Unknown [id number] 2.16.8 40.1.959457.3.579.2.647 1956 Unknown [id number] 2.16.8 40.1.445053.3.579.2.647 1956 Unknown [id number] 2.16.8 40.1.869707.3.579.2.647 1956 Unknown [id number] 2.16.8 40.1.162695.3.579.2.647 1956 Unknown [id number] 2.16.8 40.1.110405.3.579.2.647 1956 Unknown [id number] 2.16.8 40.1.386313.3.579.2.647 1956 Unknown [id number] 2.16.8 40.1.931892.3.579.2.647 1956 Unknown [id number] 2.16.8 40.1.596877.3.579.2.647 1956 Unknown [id number] 2.16.8 40.1.959492.3.579.2.647 1956 Unknown [id number] 2.16.8 40.1.112026.3.579.2.647 1956 Unknown [id number] 2.16.84 0.1.905505.3.579.2.593 1956 Unknown [id number] 2.16.84 0.1.006341.3.579.2.593 1956 Unknown [id number] 2.16.84 0.1.871135.3.579.2.593 1956 Unknown [id number] 2.16.84 0.1.831514.3.579.2.593 1956 Unknown [id number] 2.16.84 0.1.971611.3.579.2.593 1956 Unknown [id number] 2.16.84 0.1.405746.3.579.2.593 1956 Unknown [id number] 2.16.84 0.1.704730.3.579.2.593 1956 Unknown [id number] 2.16.84 0.1.885323.3.579.2.593 1956 Unknown [id number] 2.16.84 0.1.291324.3.579.2.593 1956 Unknown [id number] 2.16.84 0.1.316661.3.579.2.593 1956 Unknown [id number] 2.16.84 0.1.176068.3.579.2.593 1956 Unknown [id number] 2.16.84 0.1.496126.3.579.2.593 1956 Unknown [id number] 2.16.84 0.1.046457.3.579.2.593 1956 Unknown [id number] 2.16.84 0.1.779925.3.579.2.593 1956 Unknown [id number] 2.16.84 0.1.178604.3.579.2.593 1956 Unknown [id number] 2.16.84 [id number] 1955 Unknown [id number] 1955 Unknown [id number] 1955 Unknown [id number] [id number] Unknown [id number] 2.16.84 [id number] Unknown Amy BC/BS [id number] Social History Date Type Detail Facility Unknown if ever smoked [facility] Other Sex Assigned At Sex Assigned At Bir th [facility] Other Start: 08-30-2023 Tobacco smoking status NHIS Never smoked tobacco (finding) [facility] Start: 1955 Sex Assigned At Female F [facility] Clinical Notes 11-10-2007 to 09-23-2023 Note Date & Type Note Facility 09-23-2023 Note 09/23/23 Chief Complaint Patient presents with Kidney Follow-up Pt has been having sores in her mouth for the past month. PCP: Ramon Carroll MD Txp Referring: Preferred Pharmacy: [facility] - [place], [place] - [address] [facility] [address] [id number] - [place], [place] - [address] [facility] [address] [phone] [facility] - [place], [place] - [address] [facility] [address] [facility] [address] Subjective Visit Vitals BP 139/74 (BP Location: Left arm, Patient Position: Sitting, BP Cuff Size: Adult) Pulse 59 Temp 36.3 ???C (97.3 ???F) (Oral) Resp 18 Ht 1.524 m (5') Wt 58.5 kg (129 lb) SpO2 99% BMI 25.19 kg/m??? OB Status Postmenopausal Smoking Status Never BSA 1.57 m??? No Known Allergies Medication Documentation Review Audit Reviewed by Ester Welsh MA (Roofing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) on 09/23/23 at 0859 Medication Order Taking? Sig Documenting Provider Last Dose Status amLODIPine (Norvasc) 5 mg tablet [id number] Yes TAKE 1 TABLET BY MOUTH EVERY DAY Virgil Haynes NP Taking Active amoxicillin (Amoxil) 500 mg capsule [id number] No 1 capsule every 8 (eight) hours. Historical Provider, Not Taking Active atorvastatin (Lipitor) 20 mg tablet [id number] Yes TAKE 1 TABLET BY MOUTH EVERY DAY AT BEDTIME Virgil Haynes NP Taking Active baclofen (Lioresal) 10 mg tablet [id number] No Historical Provider, Not Taking Active cyanocobalamin (Vitamin B-12) 500 mcg tablet [id number] Yes in the morning. Historical Provider, Taking Active magnesium oxide (Mag-Ox) 400 mg (241.3 mg magnesium) tablet [id number] Yes Take 400 mg by mouth in the morning. Historical Provider, Taking Active mycophenolate (Myfortic) 180 mg EC tablet [id number] Yes TAKE 4 TABLETS BY MOUTH IN THE MORNING AND AT BEDTIME Patient taking differently: Take 540 mg by mouth in the morning and at bedtime. Doe Bridges MD Taking Active omega-3 fatty acids-fish oil (Fish OiL Extra Strength) 435-880 mg capsule [id number] Yes 1 capsule 1 (one) time each day at the same time. Historical Provider, Taking Active PARoxetine (Paxil) 10 mg tablet [id number] Yes Take 10 mg by mouth in the morning. Historical Provider, Taking Active potassium gluconate 595 mg (99 mg) tablet [id number] Yes every 12 (twelve) hours. Historical Provider, Taking Active spironolactone (Aldactone) 25 mg tablet [id number] Yes TAKE 1 TABLET BY MOUTH EVERY DAY Virgil Haynes NP Taking Active tacrolimus (Prograf) 0.5 mg capsule [id number] Yes TAKE ONE CAPSULE BY MOUTH EVERY [...] cancer Past Surgical History: Procedure Laterality Date CATARACT EXTRACTION, BILATERAL Bilateral SKIN SURGERY skin cancer removal, 3x TRANSPLANT, KIDNEY, OPEN OB History No obstetric history on file. Travel Screening No screening recorded since 09/22/23 0000 Travel History Travel since 08/23/23 No documented travel since 08/23/23 Patient Health Questionnaire-9 Score: 0 HPI Tanika Grimm is a 67 y.o. 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 09/23/23 Pt here in follow up with her . Pt hx: renal Tx 2013, APKD. Continues to see PCP: [facility]. Pt reports current oral thrush and in the past magic mouthwash was helpful. Collaborative discussion with Sophy Brink Tx. And will provide script for medication. Pt continues to care for son in her home with Lung Ca and son now on dialysis 3 x week. Pt denies CP or SOB. No N/V/D. No edema. Reviewed patient immunosuppression meds and patient verbalized understanding. IS Tac 0.5mg Bid Myfortic 3 tabs BID Labs partial done 09.19.23 : B/S 95 ; Creat 0.8 ; K+ 3.9 Mag 1.9 ; Phos 3.4 ; WBC 6.5 Hgb 13.4 Pt reports B/P stable at home Discussed hydration PLan of Care: Continue meds and MONTHLY Labs with New [facility] standing Order given today. Follow up 6 months or sooner if needed. See Derm See PCP as scheduled: Dr Carroll. Magic Mouthwash script provided. Chart Review today: 03.17.23 Pt presents visit with . Pt states labs done Last week in [facility] and [place] calling for results. Pt seeing Derm in [place] for lesion: forearm and other lesions. Hx: melanoma PCP: local Dr Khoury (more content not included)... [facility] 03-27-2023 Evaluation note Encounter Date Diagnosis Assessment Notes Feb, Contact with and (suspected) exposure to covid-19 (ICD-10 - Z20.822) Feb, Viral URI (ICD-10 - J06.9) Advised patient that COVID/Influenza A/B/RSV test and rapid Strep test was negative today. Advised patient that will treat as viral URI. Supportive care as directed, increase fluids and rest, Tylenol as directed, rx of [place], cool mist humidifier, throat lozenges. Discussed infection [...] condition. Feb, Sore throat (ICD-10 - J02.9) [facility] Other 12-18-2023 Note03/17/23 Chief Complaint Patient presents with Kidney Follow-up Patient would like to know if Virgil would prescribe depression medication. PCP: Ramon Carroll MD Txp Referring: Preferred Pharmacy: [facility] - [place], [place] - [address] [facility] [address] [id number] - [place], [place] - [address] [facility] [address] [facility] [phone] [facility] - [place], [place] - [address] [place] [address] [address] [facility] [address] Subjective Visit Vitals BP 142/80 (BP Location: Right arm, Patient Position: Sitting) Pulse 63 Temp 36.3 ???C (97.4 ???F) (Oral) Ht 1.524 m (5') Wt 60.6 kg (133 lb 9.6 oz) BMI 26.09 kg/m??? Smoking Status Never BSA 1.6 m??? No Known Allergies Medication Documentation Review Audit Reviewed by Tosha Lagos MA (Roofing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) on 03/17/23 at 0956 Medication Order Taking? Sig Documenting Provider Last Dose Status amLODIPine (Norvasc) 5 mg tablet [id number] Yes TAKE 1 TABLET BY MOUTH EVERY DAY Virgil Haynes NP Taking Active amoxicillin (Amoxil) 500 mg capsule [id number] No 1 capsule every 8 (eight) hours. Historical Provider, Not Taking Active atorvastatin (Lipitor) 20 mg tablet [id number] Yes TAKE 1 TABLET BY MOUTH EVERY DAY AT BEDTIME Virgil Haynes NP Taking Active baclofen (Lioresal) 10 mg tablet [id number] Yes Historical Provider, Taking Active cyanocobalamin (Vitamin B-12) 500 mcg tablet [id number] No in the morning. Historical Provider, Not Taking Active magnesium oxide (Mag-Ox) 400 mg (241.3 mg magnesium) tablet [id number] Yes Take 400 mg by mouth in the morning. Historical Provider, Taking Active mycophenolate (Myfortic) 180 mg EC tablet [id number] Yes TAKE 4 TABLETS BY MOUTH IN THE MORNING AND AT BEDTIME Doe Bridges MD Taking Active omega-3 fatty acids-fish oil (Fish OiL Extra Strength) 435-880 mg capsule [id number] No 1 capsule 1 (one) time each day at the same time. Historical Provider, Not Taking Active PARoxetine (Paxil) 10 mg tablet [id number] Yes Take 10 mg by mouth in the morning. Historical Provider, Taking Active potassium gluconate 595 mg (99 mg) tablet [id number] No every 12 (twelve) hours. Historical Provider, Not Taking Active spironolactone (Aldactone) 25 mg tablet [id number] Yes TAKE 1 TABLET BY MOUTH EVERY DAY Virgil Haynes NP Taking Active tacrolimus (Prograf) 0.5 mg capsule [id number] Yes TAKE ONE CAPSULE BY MOUTH EVERY MORNING AND 1 CAPSULE EVERY NIGHT AT BEDTIME Anthony Kunz MD Taking Active Immunization History Administered Date(s) Administered [facility] Sars-Cov-2 Vaccination 06/07/2020 There is no problem [...] Pt states labs done Last week in [facility] and [place] calling for results. Pt seeing Derm in [place] for lesion: forearm and other lesions. Hx: [...] Hgb. Pt AGAIN instructed to use our [facility] Transplant standing order for her monthly labs. Pt reports B/P stable at home Discussed hydration PLan of Care: Continue meds and MONTHLY Labs with [facility] standing Order. Follow up 6 months [...] ; Creat 0.9 ; (more content not included)...[facility]10-18-2023 Note Reviewed Ext Tac 3.6 over the phone with Dr. Vivas, per phone order no changes at this time.[facility]10-15-2022 Evaluation note* Encounter Date Diagnosis Assessment [...] understanding and is agreeable with treatment plan [facility] Other 09-30-2022 Evaluation note* Encounter Date Diagnosis [...] no improvement in 2 to 3 days. [facility] Other 09-27-2022 Evaluation note* Encounter Date Diagnosis [...] treatment plan. 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 she had a son Medical History hypertension Medical History kidney transplant Surgical History resection of superior cervical mass 11/10/07 Surgical History Teeth extraction in preparation for renal transplant Surgical History portacath placement Surgical History kidney transplant 2013 Hospitalization History see above [facility] Other Evaluation [facility] Other Evaluation note* Diagnosis Onset Date Resolution Status Thrush, oral acute Sore throat noneactive [facility] Work Phone: History general Narrative - ReportedNoEngineLab Other Summary Purpose Family History No Family [...] section and content) DATE CREATED AUTHOR 01/30/2018 [facility] DATE CREATED AUTHOR AUTHOR'S ORGANIZ ATION 08/17/2021 [facility] DATE CREATED AUTHOR AUTHOR'S ORGANIZ ATION 08/13/2022 [facility] DATE CREATED AUTHOR AUTHOR'S ORGANIZ ATION 09/03/2023 [facility] EPIC DATE CREATED AUTHOR AUTHOR'S ORGANIZ ATION 11/01/2023 [facility] REASON FOR VISIT (unrecogniz ed section and content) DYSURIADYSURIADYSURIAPOSS RA SH ON BACK, ITCHINGDODGE JOURNEY, SORE THROAT, COUGHBLACK DODGE JOURNT SORE THROATIN CAR, MOUTH SORES, CALL [phone] THROAT, COUGHING, DRAINAGE Care Teams (unrecognized sec [...] BE BASED ON THE PRIMARY CLINICAL RECORDS. [employer] provides no warranty or guarantee of the accuracy or completeness of information in this document.
[2023-11-12 08:33] LABS: Basophils Percent Auto 0.1 % (0.2-2.0); Eosinophils Absolute Auto 0.2 10^3/uL (0.0-0.7); Eosinophils Percent Auto 2.7 % (0.9-7.0); Hematocrit 45.7 % (36.0-48.0); Hemoglobin 14.6 g/dL (12.0-16.0); Immature Granulocytes Abs Auto 0.03 10^3/uL (0.00-0.03); Immature Granulocytes Pct Auto 0.4 % (0.0-0.5); Lymphocytes Absolute Auto 1.3 10^3/uL (1.2-3.8); Lymphocytes Percent Auto 19.1 % (20.5-60.0); Mean Corpuscular HGB Conc 31.9 g/dL (29.9-35.2); Mean Corpuscular Hemoglobin 30.3 pg (26.7-34.0); Mean Corpuscular Volume 94.8 fL (81.0-99.0); Mean Platelet Volume 12.1 fL (9.5-13.5); Monocytes Absolute Auto 0.6 10^3/uL (0.3-0.8); Monocytes Percent Auto 9.4 % (1.7-12.0); Neutrophils Absolute Auto 4.6 10^3/uL (1.4-6.5); Neutrophils Percent Auto 68.3 % (43.0-75.0); Platelet Count 194 10^3/uL (150-450); Red Blood Count 4.82 10^6/uL (4.20-5.40); Red Cell Distribution Width 14.7 % (11.0-15.0); White Blood Count 6.7 10^3/uL (4.0-11.0)
[2023-11-12 08:40] LABS: Alanine Aminotransferase 21 U/L (14-59); Albumin Globulin Ratio 1.3; Albumin Level 3.9 g/dL (3.4-5.0); Alkaline Phosphatase 130 U/L (46-116); Anion Gap 10.4; Aspartate Amino Transferase 14 U/L (15-37); BUN Creatinine Ratio 17.5; Bilirubin Direct 0.2 mg/dL (0.0-0.2); Bilirubin Total 0.7 mg/dL (0.2-1.0); Calcium 9.5 mg/dL (8.5-10.1); Carbon Dioxide 30.8 mmol/L (21.0-32.0); Chloride 104 mmol/L (98-107); Estimated GFR (African America >60 (>=60); Estimated GFR (Non-African Ame 57 (>=60); Globulin 2.9 g/dL; Glucose 91 mg/dL (74-106); Magnesium 1.8 mg/dL (1.8-2.4); Phosphorus 3.3 mg/dL (2.6-4.7); Potassium 4.2 mmol/L (3.5-5.1); Sodium 141 mmol/L (136-145); Total Protein 6.8 g/dL (6.4-8.2); Uric Acid 5.4 mg/dL (2.6-6.0)
[2023-11-15 17:09] LABS: Tacrolimus (FK506), Blood 3.9 ng/mL (2.0-20.0)
== END 2023-11-12 06:50 | disposition home or self-care (01) ==
LOC: LAB 06:51
PROVIDERS: PCP Internal Medicine
DX: E13.9 Other specified diabetes mellitus without complications (principal); Z94.0 Kidney transplant status
CPT/HCPCS: 36415; 80053; 80197; 82248; 83735; 84100; 84550; 85025

== ENCOUNTER 2023-12-15 06:57 | Outpatient (OUT) | payer MEDICARE, SELFPAY ==
--- OUTSIDE RECORDS SUMMARY | 2023-12-15 07:04 | XMS_ITS | CCD ---
Author Organization [facility] Inform ion [facility] Care Team Providers Care Spring Up Supervisor Name Role Phone [employer] [place] [employer] [place], DINKAR Unavailable Unavailable [employer] [place] [employer] [place], DINKAR Unavailable Unavailable CARROLL, RAMON Unavailable Unavailable [...] RAMON Unavailable Unavailable ZEYNEPENVIRGIL MCGOWAN Unavailable Unavailable ZEYNEPENBERSona, VIRGIL Unavailable Unavailable CRISENBERY, VIRGIL Unavailable Unavailable [...] Attending Unavailable MISC, DR OBRIEN Admitting Unavailable [employer] [place], DR CONNORS Consulting Unavailable CARROLL, DR DARBY Primary Care Unavailable MISC, DR OBRIEN Attending Unavailable MISC, DR OBRIEN Admitting Unavailable MISC, DR OBRIEN Attending Unavailable MISC, DR OBRIEN Admitting Unavailable MISC, DR OBRIEN Consulting Unavailable CARROLL, DR DARBY Primary Care Unavailable [employer] [place], DR CONNORS Consulting Unavailable [employer] [place], DR CONNORS Attending Unavailable CARROLL, DR DARBY Primary Care Unavailable [employer] [place], DR CONNORS Admitting Unavailable [employer] [place], DR CONNORS Attending Unavailable CARROLL, DR DARBY Primary Care Unavailable [employer] [place], DR CONNORS Admitting Unavailable [employer] [place], DR CONNORS Consulting Unavailable MISC, DR OBRIEN [...] Unavailable CARROLL, DR DARBY Primary Care Unavailable [employer] [place], DR CONNORS Consulting Unavailable [employer] [place], DR CONNORS Attending Unavailable CARROLL, DR DARBY Primary Care Unavailable [employer] [place], DR CONNORS Admitting Unavailable MISC, DR OBRIEN Attending Unavailable MISC, DR OBRIEN Admitting Unavailable MISC, DR OBRIEN Consulting Unavailable CARROLL, DR DARBY Primary Care Unavailable MISC, DOCTOR Attending Unavailable MISC, DR OBRIEN Admitting Unavailable MISC, DR OBRIEN Consulting Unavailable DR RAMON CARROLL Primary Care Unavailable [employer] [place], DR CONNORS Consulting Unavailable [employer] [place], DR CONNORS Attending Unavailable [employer] [place], DR CONNORS Admitting Unavailable GLEN, DR DARBY Primary Care Unavailable RAMON CARROLL Attending Unavailable ESTER PADILLA Attending Unavailable ESTER PADILLA Attending Unavailable ESTER PADILLA Attending Unavailable VIRGIL HAYNES Attending Unavailable VIRGIL HAYNES Attending Unavailable Medications Current Medications Medication Drug Class(es) Dates Sig (Normalized) Sig (Original) [id number] 200 actuat albuterol 0.09 mg/actuat metered dose [...] 1.5 mg/ml oral solution (1 source) Uncompetitive L-dxmjtv-J-asparta te Receptor Antagonist, Sigma-1 Agonist Start: 03-27-2023 take 10 mL by mouth every eight hours [place] DM 7.5-7.5 MG/5ML 10 mL Orally every 8 hours for 5 days Feb, Active ergocalciferol 1.25 mg oral capsule (9 sources) Provitamin D2 Compound Start: 06-27-2011 take 1 capsule by mouth every week Vitamin D (Ergocalciferol) 69801 UNIT 1 capsule Orally Once a Week [...] August 30, 2023 12:00am swish and swallow Bastian 3-Idg-Blp-Fish Oil (Fish Oil) 1,000 mg (120 mg-180 mg) capsule (1 source) Start: 08-30-2023 take 1 capsule by mouth once daily Bastian 8-Eav-Nnb-Fish Oil (Fish Oil) 1,000 mg (120 mg-180 [...] Start: 12-25-2021 take 1 capsule by mo [facility] every eight hours Tessalon Perles 100 MG [...] 03-27-2017 Episodic Other aftercare (2 sources) Other manager terminal (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 therapy; Translations: [OTHER SENIOR LIVING (CURRENT) DRUG THERAPY] Onset: 02-26-2017 Episodic Other [...] Name Value Interpretation Reference Range Facility Documentationon 12-09-2023 Documentation [id number] Tanika Grimm 1955 F Date Provider Department Center 12/09/2023 FERNANDA MARVIN TXGely None Family History Family Status - Relation Status Age at Mother Father Reason for Visit and Comments: Prior auth : Mycophenolate [Other] [facility] Documentationon 11-26-2023 Documentation [id number] Tanika Grimm 1955 F Date Provider Department Center 11/26/2023 86GARRETTAURELIOFERNANDA TXGely None Family History Family Status - Relation Status Age at Mother Father Reason for Visit and Comments: Prior auth Tac 0.5mg [Other] [facility] Documentationon 10-27-2023 Documentation [id number] Tanika Grimm 1955 Date Provider Department Center 10/27/2023 750-ANEL MIRANDA TXP None Family History Family Status - Relation Status Age at Mother Father [facility] 29on 09-23-2023 29 Addended by: DIANE LE on: 09/23/2023 03:27 PM Modules accepted: Orders [facility] Follow-Upon 09-23-2023 Follow-Up [id number] Tanika Grimm 1955 Provider Department Center 09/23/2023 124-VIRGIL HAYNES TXGely None Family History Family Status - Relation Status Age at Mother Father Level of Service:58430 MS OFFICE/OUTPATIENT ESTABLISHED MOD MDM 30 MIN Reason for Visit and Comments: Kidney Follow-up [] - Pt has been having sores in her mouth for the past month. [facility] No Panel InformationOrdered By: Lindsay Soria on 08-30-2023 Quick Strep (POC) [facility] Documentationon 08-26-2023 Documentation [id number] Tanika Grimm 1955 F Date Provider Department Center 08/26/2023 750-ANEL MIRANDA TXP None No family history on file [facility] Documentationon 05-19-2023 Documentation [id number] Tanika Grimm 1955 Date Provider Department Center 05/19/2023 750-ANEL MIRANDA TXP None No family history on file [facility] COVID/FLU/RSV RT-PCRon 03-27 SARS-CoV-2 (COVID-19) RNA MURALI+probe Ql (Unsp spec) Negative [facility] [employer] Other COVID/FLU/RSV RT-PCR Negative [facility] [employer] Other Quick Strepon 03-27-2023 S. pyogenes Org specific cx Ql (Throat) Negative [employer] [employer] Other Quick Strep [facility] [employer] Other 29on 03-17-2023 29 Addended by: FLAKITA LAGOS on: 03/17/2023 11:44 AM Modules accepted: Orders [facility] Follow-Upon 03-17-2023 Follow-Up [id number] Tanika Grimm 1955 Provider Department Center 03/17/2023 124-VIRGIL HAYNES TXP None No family history on file Level of Service:93036 MS OFFICE/OUTPATIENT ESTABLISHED LOW MDM 20 MIN Reason for Visit and Comments: Kidney Follow-up [[id number]] - Patient would like to know if Virgil would prescribe depression medication. [facility] 36on 01-31-2023 36 Transplant Pharmacis t [...] need for taper. The patient's verbalized understanding. Procedure Rn added medication to med list. The patient's stated patient will be getting a DEXA scan and recommended to not have calcium 3 days before. Reviewed medication list for any products containing calcium - no medications found. No other questions or concerns at this time. Normal [facility] Telephoneon 01-31-2023 Telephone [id number] Tanika Grimm 1955 F Date Provider Department [place] [facility] No family history on file Reason for Visit and Comments: Transplant Pharmacist - Drug Information [[id number]] Normal [facility] BILIRUBIN CONJUGATED (DIRECT )on 08-12-2022 BILI, CONJUGATED 0.1 mg/dL Normal 0.0-0.2 [facility] Comment on above: Performed By: #### D DAVIDSON, MG, PHOS, CMP, LIPID, URIC #### [facility] [address] [place] [address] Dr. Sarmad Patino GLYCOHEMOGLOBIN A1Con 2022 ADA RECOMMENDATION SEE BELOW Normal [facility] Comment on above: Result Comment: ADA RECOMMENDED LIMIT 4.0 - 6.0 ADA THERAPEUTIC TARGET < 7.0 ACTION SUGGESTED > 7.0 Performed By: #### D DAVIDSON, MG, PHOS, CMP, LIPID, URIC #### [facility] [address] [address] [address] Sarmad Patino Glucose [Mass/Vol] 108 mg/dL Normal [facility] Comment on above: Performed By: #### D DAVIDSON, MG, PHOS, CMP, LIPID, URIC #### [facility] [address] [address] [address] Sarmad Patino HbA1c (Bld) [Mass fraction] 5.4 % Normal 4.5-6.2 [facility] Comment on above: Performed By: #### D DAVIDSON, MG, PHOS, CMP, LIPID, URIC #### [facility] [address] [place] [address] Dr. Sarmad Patino MAGNESIUMon 08-12-2022 Magnesium [Mass/Vol] 1.7 mg/dL Critically low 1.8-2.4 [facility] Comment on above: Performed By: #### D DAVIDSON, MG, PHOS, CMP, LIPID, URIC #### [facility] [address] [place] [address] Dr. Sarmad Patino PHOSPHORUSon 08-12-2022 Phosphate [Mass/Vol] 3.9 mg/dL Normal 2.6-4.7 [facility] Comment on above: Performed By: #### U MAXI, LIPID, MG, CMP, DBIL, PHOS #### [facility] [address] [place] [address] Dr. Sarmad Patino PROF 14(COMP METB)on 023 Albumin [Mass/Vol] 3.9 g/dL Normal 3.4-5.0 [facility] Comment on above: Performed By: #### D DAVIDSON, MG, PHOS, CMP, LIPID, URIC #### [facility] [address] [place] [address] Dr. Sarmad Patino Albumin/Globulin [Mass ratio] 1.2 {ratio} Normal [facility] Comment on above: Performed By: #### D DAVIDSON, MG, PHOS, CMP, LIPID, URIC #### [facility] [address] [place] [address] Dr. Sarmad Patino ALP [Catalytic activity/Vol] 126 U/L Critically high 46-116 [facility] Comment on above: Performed By: #### D DAVIDSON, MG, PHOS, CMP, LIPID, URIC #### [facility] [address] [place] [address] Dr. Sarmad Patino ALT [Catalytic activity/Vol] 18 U/L Normal 14-59 [facility] Comment on above: Performed By: #### D DAVIDSON, MG, PHOS, CMP, LIPID, URIC #### [facility] [address] [place] [address] Dr. Sarmad Patino Anion gap [Moles/Vol] 10.4 mmol/L Normal [facility] Comment on above: Performed By: #### D DAVIDSON, MG, PHOS, CMP, LIPID, URIC #### [facility] [address] [place] [address] Dr. Sarmad Patino AST [Catalytic activity/Vol] 14 U/L Critically low 15-37 [facility] Comment on above: Performed By: #### D DAVIDSON, MG, PHOS, CMP, LIPID, URIC #### [facility] [address] [place] [address] Dr. Sarmad Patino Bilirubin [Mass/Vol] 0.7 mg/dL Normal 0.2-1.0 [facility] Comment on above: Performed By: #### D DAVIDSON, MG, PHOS, CMP, LIPID, URIC #### [facility] [address] [address] [address] Sarmad Patino Calcium [Mass/Vol] 9.8 mg/dL Normal 8.5-10.1 [facility] Comment on above: Performed By: #### D DAVIDSON, MG, PHOS, CMP, LIPID, URIC #### [facility] [address] [place] [address] Dr. Sarmad Patino Chloride [Moles/Vol] 106 mmol/L Normal 98-107 [facility] Comment on above: Performed By: #### D DAVIDSON, MG, PHOS, CMP, LIPID, URIC #### [facility] [address] [address] [address] Sarmad Patino CO2 [Moles/Vol] 32.1 mmol/L Critically high 21.0-32.0 [facility] Comment on above: Performed By: #### D DAVIDSON, MG, PHOS, CMP, LIPID, URIC #### [facility] [address] [place] [address] Dr. Sarmad Patino Creatinine [Mass/Vol] 0.92 mg/dL Normal 0.55-1.02 [facility] Comment on above: Performed By: #### D DAVIDSON, MG, PHOS, CMP, LIPID, URIC #### [facility] [address] [place] [address] Dr. Sarmad Patino EGFR-AF NIUEAN >60 Normal >=60 [facility] Comment on above: Performed By: #### D DAVIDSON, MG, PHOS, CMP, LIPID, URIC #### [facility] [address] [place] [address] Dr. Sarmad Patino EGFR-NON AF NIUEAN >60 Normal >=60 [facility] Comment on above: Performed By: #### D DAVIDSON, MG, PHOS, CMP, LIPID, URIC #### [facility] [address] [place] [address] Dr. Sarmad Patino Globulin (S) [Mass/Vol] 3.3 g/dL Normal [facility] Comment on above: Performed By: #### D DAVIDSON, MG, PHOS, CMP, LIPID, URIC #### [facility] [address] [place] [address] Dr. Sarmad Patino Glucose [Mass/Vol] 102 mg/dL Normal 74-106 [facility] Comment on above: Performed By: #### D DAVIDSON, MG, PHOS, CMP, LIPID, URIC #### [facility] [address] [place] [address] Dr. Sarmad Patino Potassium [Moles/Vol] 4.5 mmol/L Normal 3.5-5.1 [facility] Comment on above: Performed By: #### D DAVIDSON, MG, PHOS, CMP, LIPID, URIC #### [facility] [address] [address] [address] Sarmad Patino Protein [Mass/Vol] 7.2 g/dL Normal 6.4-8.2 [facility] Comment on above: Performed By: #### D DAVIDSON, MG, PHOS, CMP, LIPID, URIC #### [facility] [address] [address] [address] Sarmad Patino Sodium [Moles/Vol] 144 mmol/L Normal 136-145 [facility] Comment on above: Performed By: #### D DAVIDSON, MG, PHOS, CMP, LIPID, URIC #### [facility] [address] [place] [address] Dr. Sarmad Patino Urea nitrogen [Mass/Vol] 20.0 mg/dL Critically high 7.0-18.0 [facility] Comment on above: Performed By: #### D DAVIDSON, MG, PHOS, CMP, LIPID, URIC #### [facility] [address] [place] [address] Dr. Sarmad Patino Urea nitrogen/Creatinine [Mass ratio] 21.7 mg/mg Normal [facility] Comment on above: Performed By: #### D DAVIDSON, MG, PHOS, CMP, LIPID, URIC #### [facility] [address] [address] [address] Sarmad Patino URIC ACID SERUMon 08-12-2022 Urate [Mass/Vol] 5.2 mg/dL Normal 2.6-6.0 [facility] Comment on above: Performed By: #### D DAVIDSON, MG, PHOS, CMP, LIPID, URIC #### [facility] [address] [address] [address] Sarmad Patino MG MAMM SCREEN 3D DAVIDSON CADon 07-23-2022 MG MAMM SCREEN 3D DAVIDSON CAD Patient: TANIKA GRIMM Exam Date: 07/23/2022 : 1955 Gender:F Ordering : DR RAMON CARROLL M.D. Admission #: [id number] Family : Order #: [id number] CLICK HERE TO VIEW EXAM RADIOLOGY REPORT [...] Treatments None Family Cancers None LOCATION: [facility] BREAST COMPOSITION: Extremely dense, which lowers the [...] M.D. on 07/23/2022 at 16:59 Normal [facility] FK506 (TACROLIMUS) WHOLE BLO ODon 07-10-2022 Tacrolimus (FK506), Blood 3.8 ng/mL Normal 2.0-20.0 [facility] Comment on above: Result Comment: Trou gh (immediately following transplant) 15.0 . Trough (steady state, 2 weeks or more after transplant): 3.0 - 8.0 . Performed by LC-MS/MS technology. Performed By: #### D DAVIDSON, MG, PHOS, CMP, LIPID, URIC #### [facility] [address] [address] [address] Sarmad Patino BILIRUBIN CONJUGATED (DIRECT )on 07-08-2022 BILI, CONJUGATED 0.1 mg/dL Normal 0.0-0.2 [facility] Comment on above: Performed By: #### U MAXI, LIPID, MG, CMP, DBIL, PHOS #### [facility] [address] [address] [address] Sarmad Patino GLYCOHEMOGLOBIN A1Con 2022 ADA RECOMMENDATION SEE BELOW Normal [facility] Comment on above: Result Comment: ADA RECOMMENDED LIMIT 4.0 - 6.0 ADA THERAPEUTIC TARGET < 7.0 ACTION SUGGESTED > 7.0 Performed By: #### D DAVIDSON, MG, PHOS, CMP, LIPID, URIC #### [facility] [address] [address] [address] Sarmad Patino Glucose [Mass/Vol] 105 mg/dL Normal [facility] Comment on above: Performed By: #### D DAVIDSON, MG, PHOS, CMP, LIPID, URIC #### [facility] [address] [address] [address] Sarmad Patino HbA1c (Bld) [Mass fraction] 5.3 % Normal 4.5-6.2 [facility] Comment on above: Performed By: #### D DAVIDSON, MG, PHOS, CMP, LIPID, URIC #### [facility] [address] [address] [address] Sarmad Patino MAGNESIUMon 07-08-2022 Magnesium [Mass/Vol] 1.8 mg/dL Normal 1.8-2.4 [facility] Comment on above: Performed By: #### U MAXI, LIPID, MG, CMP, DBIL, PHOS #### [facility] [address] [place] [address] Dr. Sarmad Patino PHOSPHORUSon 07-08-2022 Phosphate [Mass/Vol] 3.8 mg/dL Normal 2.6-4.7 [facility] Comment on above: Performed By: #### U MAXI, LIPID, MG, CMP, DBIL, PHOS #### [facility] [address] [place] [address] Dr. Sarmad Patino PROF 14(COMP METB)on 023 Albumin [Mass/Vol] 3.7 g/dL Normal 3.4-5.0 [facility] Comment on above: Performed By: #### U MAXI, LIPID, MG, CMP, DBIL, PHOS #### [facility] [address] [place] [address] Dr. Sarmad Patino Albumin/Globulin [Mass ratio] 1.1 {ratio} Normal [facility] Comment on above: Performed By: #### U MAXI, LIPID, MG, CMP, DBIL, PHOS #### [facility] [address] [place] [address] Dr. Sarmad Patino ALP [Catalytic activity/Vol] 124 U/L Critically high 46-116 [facility] Comment on above: Performed By: #### U MAXI, LIPID, MG, CMP, DBIL, PHOS #### [facility] [address] [place] [address] Dr. Sarmad Patino ALT [Catalytic activity/Vol] 20 U/L Normal 14-59 [facility] Comment on above: Performed By: #### U MAXI, LIPID, MG, CMP, DBIL, PHOS #### [facility] [address] [place] [address] Dr. Sarmad Patino Anion gap [Moles/Vol] 11.5 mmol/L Normal [facility] Comment on above: Performed By: #### U MAXI, LIPID, MG, CMP, DBIL, PHOS #### [facility] [address] [place] [address] Dr. Sarmad Patino AST [Catalytic activity/Vol] 12 U/L Critically low 15-37 [facility] Comment on above: Performed By: #### U MAXI, LIPID, MG, CMP, DBIL, PHOS #### [facility] [address] [place] [address] Dr. Sarmad Patino Bilirubin [Mass/Vol] 0.5 mg/dL Normal 0.2-1.0 [facility] Comment on above: Performed By: #### U MAXI, LIPID, MG, CMP, DBIL, PHOS #### [facility] [address] [place] [address] Dr. Sarmad Patino Calcium [Mass/Vol] 9.6 mg/dL Normal 8.5-10.1 [facility] Comment on above: Performed By: #### U MAXI, LIPID, MG, CMP, DBIL, PHOS #### [facility] [address] [place] [address] Dr. Sarmad Patino Chloride [Moles/Vol] 106 mmol/L Normal 98-107 [facility] Comment on above: Performed By: #### U MAXI, LIPID, MG, CMP, DBIL, PHOS #### [facility] [address] [place] [address] Dr. Sarmad Patino CO2 [Moles/Vol] 29.7 mmol/L Normal 21.0-32.0 [facility] Comment on above: Performed By: #### U MAXI, LIPID, MG, CMP, DBIL, PHOS #### [facility] [address] [place] [address] Dr. Sarmad Patino Creatinine [Mass/Vol] 0.77 mg/dL Normal 0.55-1.02 [facility] Comment on above: Performed By: #### U MAXI, LIPID, MG, CMP, DBIL, PHOS #### [facility] [address] [place] [address] Dr. Sarmad Patino EGFR-AF NIUEAN >60 Normal >=60 [facility] Comment on above: Performed By: #### U MAXI, LIPID, MG, CMP, DBIL, PHOS #### [facility] [address] [address] [address] Sarmad Patino EGFR-NON AF NIUEAN >60 Normal >=60 [facility] Comment on above: Performed By: #### U MAXI, LIPID, MG, CMP, DBIL, PHOS #### [facility] [address] [place] [address] Dr. Sarmad Patino Globulin (S) [Mass/Vol] 3.4 g/dL Normal [facility] Comment on above: Performed By: #### U MAXI, LIPID, MG, CMP, DBIL, PHOS #### [facility] [address] [place] [address] Dr. Sarmad Patino Glucose [Mass/Vol] 97 mg/dL Normal 74-106 [facility] Comment on above: Performed By: #### U MAXI, LIPID, MG, CMP, DBIL, PHOS #### [facility] [address] [place] [address] Dr. Sarmad Patino Potassium [Moles/Vol] 4.2 mmol/L Normal 3.5-5.1 [facility] Comment on above: Performed By: #### U MAXI, LIPID, MG, CMP, DBIL, PHOS #### [facility] [address] [place] [address] Dr. Sarmad Patino Protein [Mass/Vol] 7.1 g/dL Normal 6.4-8.2 [facility] Comment on above: Performed By: #### U MAXI, LIPID, MG, CMP, DBIL, PHOS #### [facility] [address] [place] [address] Dr. Sarmad Patino Sodium [Moles/Vol] 143 mmol/L Normal 136-145 [facility] Comment on above: Performed By: #### U MAXI, LIPID, MG, CMP, DBIL, PHOS #### [facility] [address] [place] [address] Dr. Sarmad Patino Urea nitrogen [Mass/Vol] 26.0 mg/dL Critically high 7.0-18.0 [facility] Comment on above: Performed By: #### U MAXI, LIPID, MG, CMP, DBIL, PHOS #### [facility] [address] [place] [address] Dr. Sarmad Patino Urea nitrogen/Creatinine [Mass ratio] 33.8 mg/mg Normal [facility] Comment on above: Performed By: #### U MAXI, LIPID, MG, CMP, DBIL, PHOS #### [facility] [address] [place] [address] Dr. Sarmad Patino URIC ACID SERUMon 07-08-2022 Urate [Mass/Vol] 4.7 mg/dL Normal 2.6-6.0 [facility] Comment on above: Performed By: #### U MAXI, LIPID, MG, CMP, DBIL, PHOS #### [facility] [address] [place] [address] Dr. Sarmad Patino FK506 (TACROLIMUS) WHOLE BLO ODon 06-13-2022 Tacrolimus (FK506), Blood 3.0 ng/mL Normal 2.0-20.0 [facility] Comment on above: Result Comment: Trou gh (immediately following transplant) 15.0 . Trough (steady state, 2 weeks or more after transplant): 3.0 - 8.0 . Performed by LC-MS/MS technology. Performed By: #### D DAVIDSON, MG, PHOS, CMP, LIPID, URIC #### [facility] [address] [place] [address] Dr. Sarmad Patino BK VIRUS PCR QUANTon 023 BKV DNA QUANT PCR PLASMA Negative Normal Negative [facility] Comment on above: Result Comment: No B K DNA detected. . The linear range of the assay is 22 - 100,000,000 IU/mL. Performed By: #### B KVIRUS #### [facility] [address] [place] [address] Dr. Sarmad Patino Log10 BKV DNA Plasma Normal [facility] Comment on above: Performed By: #### B KVIRUS #### [facility] [address] [place] [address] Dr. Sarmad Patino BILIRUBIN CONJUGATED (DIRECT )on 06-10-2022 BILI, CONJUGATED 0.1 mg/dL Normal 0.0-0.2 [facility] Comment on above: Performed By: #### U MAXI, LIPID, MG, CMP, DBIL, PHOS #### [facility] [address] [address] [address] Sarmad Patino GLYCOHEMOGLOBIN A1Con 2022 ADA RECOMMENDATION SEE BELOW Normal [facility] Comment on above: Result Comment: ADA RECOMMENDED LIMIT 4.0 - 6.0 ADA THERAPEUTIC TARGET < 7.0 ACTION SUGGESTED > 7.0 Performed By: #### D DAVIDSON, MG, PHOS, CMP, LIPID, URIC #### [facility] [address] [address] [address] Sarmad Patino Glucose [Mass/Vol] 114 mg/dL Normal [facility] Comment on above: Performed By: #### D DAVIDSON, MG, PHOS, CMP, LIPID, URIC #### [facility] [address] [place] [address] Dr. Sarmad Patino HbA1c (Bld) [Mass fraction] 5.6 % Normal 4.5-6.2 [facility] Comment on above: Performed By: #### D DAVIDSON, MG, PHOS, CMP, LIPID, URIC #### [facility] [address] [address] [address] Sarmad Patino MAGNESIUMon 06-10-2022 Magnesium [Mass/Vol] 1.6 mg/dL Critically low 1.8-2.4 [facility] Comment on above: Performed By: #### U MAXI, LIPID, MG, CMP, DBIL, PHOS #### [facility] [address] [address] [address] Sarmad Patino PROF 14(COMP METB)on 023 Albumin [Mass/Vol] 3.7 g/dL Normal 3.4-5.0 [facility] Comment on above: Performed By: #### U MAXI, LIPID, MG, CMP, DBIL, PHOS #### [facility] [address] [place] [address] Dr. Sarmad Patino Albumin/Globulin [Mass ratio] 1.1 {ratio} Normal [facility] Comment on above: Performed By: #### U MAXI, LIPID, MG, CMP, DBIL, PHOS #### [facility] [address] [place] [address] Dr. Sarmad Patino ALP [Catalytic activity/Vol] 142 U/L Critically high 46-116 [facility] Comment on above: Performed By: #### U MAXI, LIPID, MG, CMP, DBIL, PHOS #### [facility] [address] [address] [address] Sarmad Patino ALT [Catalytic activity/Vol] 29 U/L Normal 14-59 [facility] Comment on above: Performed By: #### U MAXI, LIPID, MG, CMP, DBIL, PHOS #### [facility] [address] [place] [address] Dr. Sarmad Patino Anion gap [Moles/Vol] 11.1 mmol/L Normal [facility] Comment on above: Performed By: #### U MAXI, LIPID, MG, CMP, DBIL, PHOS #### [facility] [address] [place] [address] Dr. Sarmad Patino AST [Catalytic activity/Vol] 19 U/L Normal 15-37 [facility] Comment on above: Performed By: #### U MAXI, LIPID, MG, CMP, DBIL, PHOS #### [facility] [address] [place] [address] Dr. Sarmad Patino Bilirubin [Mass/Vol] 0.6 mg/dL Normal 0.2-1.0 [facility] Comment on above: Performed By: #### U MAXI, LIPID, MG, CMP, DBIL, PHOS #### [facility] [address] [place] [address] Dr. Sarmad Patino Calcium [Mass/Vol] 9.8 mg/dL Normal 8.5-10.1 [facility] Comment on above: Performed By: #### U MAXI, LIPID, MG, CMP, DBIL, PHOS #### [facility] [address] [place] [address] Dr. Sarmad Patino Chloride [Moles/Vol] 103 mmol/L Normal 98-107 [facility] Comment on above: Performed By: #### U MAXI, LIPID, MG, CMP, DBIL, PHOS #### [facility] [address] [place] [address] Dr. Sarmad Patino CO2 [Moles/Vol] 30.7 mmol/L Normal 21.0-32.0 [facility] Comment on above: Performed By: #### U MAXI, LIPID, MG, CMP, DBIL, PHOS #### [facility] [address] [place] [address] Dr. Sarmad Patino Creatinine [Mass/Vol] 0.79 mg/dL Normal 0.55-1.02 [facility] Comment on above: Performed By: #### U MAXI, LIPID, MG, CMP, DBIL, PHOS #### [facility] [address] [place] [address] Dr. Sarmad Patino EGFR-AF NIUEAN >60 Normal >=60 [facility] Comment on above: Performed By: #### U MAXI, LIPID, MG, CMP, DBIL, PHOS #### [facility] [address] [place] [address] Dr. Sarmad Patino EGFR-NON AF NIUEAN >60 Normal >=60 [facility] Comment on above: Performed By: #### U MAXI, LIPID, MG, CMP, DBIL, PHOS #### [facility] [address] [place] [address] Dr. Sarmad Patino Globulin (S) [Mass/Vol] 3.4 g/dL Normal [facility] Comment on above: Performed By: #### U MAXI, LIPID, MG, CMP, DBIL, PHOS #### [facility] [address] [place] [address] Dr. Sarmad Patino Glucose [Mass/Vol] 94 mg/dL Normal 74-106 [facility] Comment on above: Performed By: #### U MAXI, LIPID, MG, CMP, DBIL, PHOS #### [facility] [address] [place] [address] Dr. Sarmad Patino Potassium [Moles/Vol] 3.8 mmol/L Normal 3.5-5.1 [facility] Comment on above: Performed By: #### U MAXI, LIPID, MG, CMP, DBIL, PHOS #### [facility] [address] [place] [address] Dr. Sarmad Patino Protein [Mass/Vol] 7.1 g/dL Normal 6.4-8.2 [facility] Comment on above: Performed By: #### U MAXI, LIPID, MG, CMP, DBIL, PHOS #### [facility] [address] [place] [address] Dr. Sarmad Patino Sodium [Moles/Vol] 141 mmol/L Normal 136-145 [facility] Comment on above: Performed By: #### U MAXI, LIPID, MG, CMP, DBIL, PHOS #### [facility] [address] [place] [address] Dr. Sarmad Patino Urea nitrogen [Mass/Vol] 17.0 mg/dL Normal 7.0-18.0 [facility] Comment on above: Performed By: #### U MAXI, LIPID, MG, CMP, DBIL, PHOS #### [facility] [address] [place] [address] Dr. Sarmad Patino Urea nitrogen/Creatinine [Mass ratio] 21.5 mg/mg Normal [facility] Comment on above: Performed By: #### U MAXI, LIPID, MG, CMP, DBIL, PHOS #### [facility] [address] [place] [address] Dr. Sarmad Patino URIC ACID SERUMon 06-10-2022 Urate [Mass/Vol] 5.1 mg/dL Normal 2.6-6.0 [facility] Comment on above: Performed By: #### U MAXI, LIPID, MG, CMP, DBIL, PHOS #### [facility] [address] [place] [address] Dr. Sarmad Patino BK VIRUS PCR QUANTon 023 BKV DNA QUANT PCR PLASMA Negative Normal Negative [facility] Comment on above: Result Comment: No B K DNA detected. . The linear range of the assay is 22 - 100,000,000 IU/mL. Performed By: #### U MAXI, LIPID, MG, CMP, DBIL, PHOS #### [facility] [address] [place] [address] Dr. Sarmad Patino Log10 BKV DNA Plasma Normal [facility] Comment on above: Performed By: #### U MAXI, LIPID, MG, CMP, DBIL, PHOS #### [facility] [address] [address] [address] Sarmad Patino FK506 (TACROLIMUS) WHOLE BLO ODon 05-13-2022 Tacrolimus (FK506), Blood 4.1 ng/mL Normal 2.0-20.0 [facility] Comment on above: Result Comment: Trou gh (immediately following transplant) 15.0 . Trough (steady state, 2 weeks or more after transplant): 3.0 - 8.0 . Performed by LC-MS/MS technology. Performed By: #### U MAXI, LIPID, MG, CMP, DBIL, PHOS #### [facility] [address] [place] [address] Dr. Sarmad Patino BILIRUBIN CONJUGATED (DIRECT )on 05-10-2022 BILI, CONJUGATED 0.1 mg/dL Normal 0.0-0.2 [facility] Comment on above: Performed By: #### D DAVIDSON, MG, PHOS, CMP, LIPID, URIC #### [facility] [address] [place] [address] Dr. Sarmad Patino GLYCOHEMOGLOBIN A1Con 2022 ADA RECOMMENDATION SEE BELOW Normal [facility] Comment on above: Result Comment: ADA RECOMMENDED LIMIT 4.0 - 6.0 ADA THERAPEUTIC TARGET < 7.0 ACTION SUGGESTED > 7.0 Performed By: #### D DAVIDSON, MG, PHOS, CMP, LIPID, URIC #### [facility] [address] [address] [address] Sarmad Patino Glucose [Mass/Vol] 108 mg/dL Normal [facility] Comment on above: Performed By: #### D DAVIDSON, MG, PHOS, CMP, LIPID, URIC #### [facility] [address] [address] [address] Sarmad Patino HbA1c (Bld) [Mass fraction] 5.4 % Normal 4.5-6.2 [facility] Comment on above: Performed By: #### D DAVIDSON, MG, PHOS, CMP, LIPID, URIC #### [facility] [address] [place] [address] Dr. Sarmad Patino MAGNESIUMon 05-10-2022 Magnesium [Mass/Vol] 1.9 mg/dL Normal 1.8-2.4 [facility] Comment on above: Performed By: #### U MAXI, LIPID, MG, CMP, DBIL, PHOS #### [facility] [address] [place] [address] Dr. Sarmad Patino PROF 14(COMP METB)on 023 Albumin [Mass/Vol] 3.9 g/dL Normal 3.4-5.0 [facility] Comment on above: Performed By: #### D DAVIDSON, MG, PHOS, CMP, LIPID, URIC #### [facility] [address] [place] [address] Dr. Sarmad Patino Albumin/Globulin [Mass ratio] 1.2 {ratio} Normal [facility] Comment on above: Performed By: #### D DAVIDSON, MG, PHOS, CMP, LIPID, URIC #### [facility] [address] [place] [address] Dr. Sarmad Patino ALP [Catalytic activity/Vol] 114 U/L Normal 46-116 [facility] Comment on above: Performed By: #### D DAVIDSON, MG, PHOS, CMP, LIPID, URIC #### [facility] [address] [place] [address] Dr. Sarmad Patino ALT [Catalytic activity/Vol] 18 U/L Normal 14-59 [facility] Comment on above: Performed By: #### D DAVIDSON, MG, PHOS, CMP, LIPID, URIC #### [facility] [address] [place] [address] Dr. Sarmad Patino Anion gap [Moles/Vol] 15.9 mmol/L Normal [facility] Comment on above: Performed By: #### D DAVIDSON, MG, PHOS, CMP, LIPID, URIC #### [facility] [address] [place] [address] Dr. Sarmad Patino AST [Catalytic activity/Vol] 17 U/L Normal 15-37 [facility] Comment on above: Performed By: #### D DAVIDSON, MG, PHOS, CMP, LIPID, URIC #### [facility] [address] [address] [address] Sarmad Patino Bilirubin [Mass/Vol] 0.4 mg/dL Normal 0.2-1.0 [facility] Comment on above: Performed By: #### D DAVIDSON, MG, PHOS, CMP, LIPID, URIC #### [facility] [address] [address] [address] Sarmad Patino Calcium [Mass/Vol] 9.8 mg/dL Normal 8.5-10.1 [facility] Comment on above: Performed By: #### D DAVIDSON, MG, PHOS, CMP, LIPID, URIC #### [facility] [address] [place] [address] Dr. Sarmad Patino Chloride [Moles/Vol] 103 mmol/L Normal 98-107 [facility] Comment on above: Performed By: #### D DAVIDSON, MG, PHOS, CMP, LIPID, URIC #### [facility] [address] [address] [address] Sarmad Patino CO2 [Moles/Vol] 29.2 mmol/L Normal 21.0-32.0 [facility] Comment on above: Performed By: #### D DAVIDSON, MG, PHOS, CMP, LIPID, URIC #### [facility] [address] [place] [address] Dr. Sarmad Patino Creatinine [Mass/Vol] 0.74 mg/dL Normal 0.55-1.02 [facility] Comment on above: Performed By: #### D DAVIDSON, MG, PHOS, CMP, LIPID, URIC #### [facility] [address] [address] [address] Sarmad Patino EGFR-AF NIUEAN >60 Normal >=60 [facility] Comment on above: Performed By: #### D DAVIDSON, MG, PHOS, CMP, LIPID, URIC #### [facility] [address] [place] [address] Dr. Sarmad Patino EGFR-NON AF NIUEAN >60 Normal >=60 [facility] Comment on above: Performed By: #### D DAVIDSON, MG, PHOS, CMP, LIPID, URIC #### [facility] [address] [place] [address] Dr. Sarmad Patino Globulin (S) [Mass/Vol] 3.2 g/dL Normal [facility] Comment on above: Performed By: #### D DAVIDSON, MG, PHOS, CMP, LIPID, URIC #### [facility] [address] [place] [address] Dr. Sarmad Patino Glucose [Mass/Vol] 94 mg/dL Normal 74-106 [facility] Comment on above: Performed By: #### D DAVIDSON, MG, PHOS, CMP, LIPID, URIC #### [facility] [address] [place] [address] Dr. Sarmad Patino Potassium [Moles/Vol] 4.1 mmol/L Normal 3.5-5.1 [facility] Comment on above: Performed By: #### D DAVIDSON, MG, PHOS, CMP, LIPID, URIC #### [facility] [address] [place] [address] Dr. Sarmad Patino Protein [Mass/Vol] 7.1 g/dL Normal 6.4-8.2 [facility] Comment on above: Performed By: #### D DAVIDSON, MG, PHOS, CMP, LIPID, URIC #### [facility] [address] [place] [address] Dr. Sarmad Patino Sodium [Moles/Vol] 144 mmol/L Normal 136-145 [facility] Comment on above: Performed By: #### D DAVIDSON, MG, PHOS, CMP, LIPID, URIC #### [facility] [address] [place] [address] Dr. Sarmad Patino Urea nitrogen [Mass/Vol] 18.0 mg/dL Normal 7.0-18.0 [facility] Comment on above: Performed By: #### D DAVIDSON, MG, PHOS, CMP, LIPID, URIC #### [facility] [address] [place] [address] Dr. Sarmad Patino Urea nitrogen/Creatinine [Mass ratio] 24.3 mg/mg Normal [facility] Comment on above: Performed By: #### D DAVIDSON, MG, PHOS, CMP, LIPID, URIC #### [facility] [address] [address] [address] Sarmad Patino URIC ACID SERUMon 05-10-2022 Urate [Mass/Vol] 5.1 mg/dL Normal 2.6-6.0 [facility] Comment on above: Performed By: #### U MAXI, LIPID, MG, CMP, DBIL, PHOS #### [facility] [address] [address] [address] Sarmad Patino MYCOPHENOLIC ACIDon 04-17-19 Mycophenolic Acid 1.2 ug/mL Normal 1.0-3.5 [facility] Comment on above: Performed By: #### D DAVIDSON, MG, PHOS, CMP, LIPID, URIC #### [facility] [address] [address] [address] Sarmad Patino Mycophenolic Acid Glucuronide 37 ug/mL Normal 15-125 [facility] Comment on above: Result Comment: [facility] 's Reference Range: 35-100 mcg/mL. Performed By: #### D DAVIDSON, MG, PHOS, CMP, LIPID, URIC #### [facility] [address] [address] [address] Sarmad Patino FK506 (TACROLIMUS) WHOLE BLO ODon 04-10-2022 Tacrolimus (FK506), Blood 4.2 ng/mL Normal 2.0-20.0 [facility] Comment on above: Result Comment: Trou gh (immediately following transplant) 15.0 . Trough (steady state, 2 weeks or more after transplant): 3.0 - 8.0 . Performed by LC-MS/MS technology. Performed By: #### D DAVIDSON, MG, PHOS, CMP, LIPID, URIC #### [facility] [address] [address] [address] Sarmad Patino BILIRUBIN CONJUGATED (DIRECT )on 04-08-2022 BILI, CONJUGATED 0.1 mg/dL Normal 0.0-0.2 [facility] Comment on above: Performed By: #### U MAXI, LIPID, MG, CMP, DBIL, PHOS #### [facility] [address] [address] [address] Sarmad Patino CBC AUTO DIFFon 04-08-2022 BASO # 0.0 103/ul Normal 0.0-0.1 [facility] Comment on above: Performed By: #### D DAVIDSON, MG, PHOS, CMP, LIPID, URIC #### [facility] [address] [place] [address] Dr. Sarmad Patino Basophils/100 WBC (Bld) 0.3 % Normal 0.2-2.0 [facility] Comment on above: Performed By: #### D DAVIDSON, MG, PHOS, CMP, LIPID, URIC #### [facility] [address] [place] [address] Dr. Sarmad Patino EO # 0.1 103/ul Normal 0.0-0.7 [facility] Comment on above: Performed By: #### D DAVIDSON, MG, PHOS, CMP, LIPID, URIC #### [facility] [address] [place] [address] Dr. Sarmad Patino Eosinophils/100 WBC (Bld) 1.4 % Normal 0.9-7.0 [facility] Comment on above: Performed By: #### D DAVIDSON, MG, PHOS, CMP, LIPID, URIC #### [facility] [address] [place] [address] Dr. Sarmad Patino Erythrocyte distribution width (RBC) [Ratio] 15.8 % Critically high 11.0-15.0 [facility] Comment on above: Performed By: #### D DAVIDSON, MG, PHOS, CMP, LIPID, URIC #### [facility] [address] [place] [address] Dr. Sarmad Patino Hematocrit (Bld) [Volume fraction] 43.0 % Normal 36.0-48.0 [facility] Comment on above: Performed By: #### D DAVIDSON, MG, PHOS, CMP, LIPID, URIC #### [facility] [address] [place] [address] Dr. Sarmad Patino Hemoglobin (Bld) [Mass/Vol] 15.0 g/dL Normal 12.0-16.0 [facility] Comment on above: Performed By: #### D DAVIDSON, MG, PHOS, CMP, LIPID, URIC #### [facility] [address] [address] [address] Sarmad Patino IG # 0.01 10e3/ul Normal 0.00-0.03 [facility] Comment on above: Performed By: #### D DAVIDSON, MG, PHOS, CMP, LIPID, URIC #### [facility] [address] [place] [address] Dr. Sarmad Patino IG % 0.1 % Normal 0.0-0.5 [facility] Comment on above: Performed By: #### D DAVIDSON, MG, PHOS, CMP, LIPID, URIC #### [facility] [address] [place] [address] Dr. Sarmad Patino LYMPH # 1.3 103/ul Normal 1.2-3.8 [facility] Comment on above: Performed By: #### D DAVIDSON, MG, PHOS, CMP, LIPID, URIC #### [facility] [address] [place] [address] Dr. Sarmad Patino Lymphocytes/100 WBC (Bld) 18.3 % Critically low 20.5-60.0 [facility] Comment on above: Performed By: #### D DAVIDSON, MG, PHOS, CMP, LIPID, URIC #### [facility] [address] [place] [address] Dr. Sarmad Patino MANUAL DIFF REQ NO Normal [facility] Comment on above: Performed By: #### D DAVIDSON, MG, PHOS, CMP, LIPID, URIC #### [facility] [address] [place] [address] Dr. Sarmad Patino MCH (RBC) [Entitic mass] 29.7 pg Normal 26.7-34.0 [facility] Comment on above: Performed By: #### D DAVIDSON, MG, PHOS, CMP, LIPID, URIC #### [facility] [address] [place] [address] Dr. Sarmad Patino MCHC (RBC) [Mass/Vol] 34.9 g/dL Normal 29.9-35.2 [facility] Comment on above: Performed By: #### D DAVIDSON, MG, PHOS, CMP, LIPID, URIC #### [facility] [address] [place] [address] Dr. Sarmad Patino MCV (RBC) [Entitic vol] 85.1 fL Normal 81.0-99.0 [facility] Comment on above: Performed By: #### D DAVIDSON, MG, PHOS, CMP, LIPID, URIC #### [facility] [address] [place] [address] Dr. Sarmad Patino MONO # 0.7 103/ul Normal 0.3-0.8 [facility] Comment on above: Performed By: #### D DAVIDSON, MG, PHOS, CMP, LIPID, URIC #### [facility] [address] [place] [address] Dr. Sarmad Patino Monocytes/100 WBC (Bld) 9.8 % Normal 1.7-12.0 [facility] Comment on above: Performed By: #### D DAVIDSON, MG, PHOS, CMP, LIPID, URIC #### [facility] [address] [place] [address] Dr. Sarmad Patino NEUT # 5.1 103/ul Normal 1.4-6.5 [facility] Comment on above: Performed By: #### D DAVIDSON, MG, PHOS, CMP, LIPID, URIC #### [facility] [address] [place] [address] Dr. Sarmad Patino Neutrophils/100 WBC (Bld) 70.1 % Normal 43.0-75.0 [facility] Comment on above: Performed By: #### D DAVIDSON, MG, PHOS, CMP, LIPID, URIC #### [facility] [address] [place] [address] Dr. Sarmad Patino Platelet mean volume (Bld) [Entitic vol] 10.4 fL Normal 9.5-13.5 [facility] Comment on above: Performed By: #### D DAVIDSON, MG, PHOS, CMP, LIPID, URIC #### [facility] [address] [place] [address] Dr. Sarmad Patino PLT 229 103/ul Normal 150-450 [facility] Comment on above: Performed By: #### D DAVIDSON, MG, PHOS, CMP, LIPID, URIC #### [facility] [address] [address] [address] Sarmad Patino RBC 5.05 106/ul Normal 4.20-5.40 [facility] Comment on above: Performed By: #### D DAVIDSON, MG, PHOS, CMP, LIPID, URIC #### [facility] [address] [address] [address] Sarmad Patino WBC 7.2 103/ul Normal 4.0-11.0 [facility] Comment on above: Performed By: #### D DAVIDSON, MG, PHOS, CMP, LIPID, URIC #### [facility] [address] [address] [address] Sarmad Patino LIPID PROFILEon 04-08-2022 CHOL-HDL RATIO NORM SEE BELOW Normal [facility] Comment on above: Result Comment: 3.3 - 4.4 LOW RISK 4.4 - 7.1 AVERAGE RISK 7.1 - 11.0 MODERATE RISK >11.0 HIGH RISK Performed By: #### U MAXI, LIPID, MG, CMP, DBIL, PHOS #### [facility] [address] [address] [address] Sarmad Patino Cholesterol [Mass/Vol] 134 mg/dL Normal <=200 [facility] Comment on above: Performed By: #### U MAXI, LIPID, MG, CMP, DBIL, PHOS #### [facility] [address] [address] [address] Sarmad Patino Cholesterol in HDL [Mass/Vol] 55 mg/dL Normal 40-60 [facility] Comment on above: Performed By: #### U MAIX, LIPID, MG, CMP, DBIL, PHOS #### [facility] [address] [address] [address] Sarmad Patino Cholesterol in LDL [Mass/Vol] 56.6 mg/dL Normal [facility] Comment on above: Performed By: #### U MAXI, LIPID, MG, CMP, DBIL, PHOS #### [facility] [address] [address] [address] Sarmad Patino Cholesterol.total/Cho lesterol in HDL [Mass ratio] 2.4 {ratio} Normal [facility] Comment on above: Performed By: #### U MAXI, LIPID, MG, CMP, DBIL, PHOS #### [facility] [address] [address] [address] Sarmad Patino HDL NORMAL > or = 60 mg/dl - LO W CARDIOVASCULAR RISK <40 mg/dl - HIGH CARDIOVASCULAR RISK Normal [facility] Comment on above: Performed By: #### U MAXI, LIPID, MG, CMP, DBIL, PHOS #### [facility] [address] [address] [address] Sarmad Patino LDL CALC NORMAL SEE BELOW Normal [facility] Comment on above: Result Comment: <100 mg/dl OPTIMAL 100 - 129 mg/dl NEAR OR ABOVE OPTIMAL 130 - 159 mg/dl BORDERLINE HIGH 160 - 189 mg/dl HIGH >190 mg/dl VERY HIGH Performed By: #### U MAXI, LIPID, MG, CMP, DBIL, PHOS #### [facility] [address] [address] [address] Sarmad Patino Triglyceride [Mass/Vol] 112 mg/dL Normal <=150 [facility] Comment on above: Performed By: #### U MAXI, LIPID, MG, CMP, DBIL, PHOS #### [facility] [address] [address] [address] Sarmad Patino VLDL CALC 22.4 mg/dL Normal [facility] Comment on above: Performed By: #### U MAXI, LIPID, MG, CMP, DBIL, PHOS #### [facility] [address] [address] [address] Sarmad Patino MAGNESIUMon 04-08-2022 Magnesium [Mass/Vol] 1.8 mg/dL Normal 1.8-2.4 [facility] Comment on above: Performed By: #### U MAXI, LIPID, MG, CMP, DBIL, PHOS #### [facility] [address] [place] [address] Dr. Sarmad Patino PHOSPHORUSon 04-08-2022 Phosphate [Mass/Vol] 3.9 mg/dL Normal 2.6-4.7 [facility] Comment on above: Performed By: #### U MAXI, LIPID, MG, CMP, DBIL, PHOS #### [facility] [address] [address] [address] Sarmad Patino PROF 14(COMP METB)on 023 Albumin [Mass/Vol] 4.0 g/dL Normal 3.4-5.0 [facility] Comment on above: Performed By: #### U MAXI, LIPID, MG, CMP, DBIL, PHOS #### [facility] [address] [address] [address] Sarmad Patino Albumin/Globulin [Mass ratio] 1.3 {ratio} Normal [facility] Comment on above: Performed By: #### U MAXI, LIPID, MG, CMP, DBIL, PHOS #### [facility] [address] [place] [address] Dr. Sarmad Patino ALP [Catalytic activity/Vol] 108 U/L Normal 46-116 [facility] Comment on above: Performed By: #### U MAXI, LIPID, MG, CMP, DBIL, PHOS #### [facility] [address] [place] [address] Dr. Sarmad Patino ALT [Catalytic activity/Vol] 15 U/L Normal 14-59 [facility] Comment on above: Performed By: #### U MAXI, LIPID, MG, CMP, DBIL, PHOS #### [facility] [address] [place] [address] Dr. Sarmad Patino Anion gap [Moles/Vol] 14.3 mmol/L Normal [facility] Comment on above: Performed By: #### U MAXI, LIPID, MG, CMP, DBIL, PHOS #### [facility] [address] [address] [address] Sarmad Patino AST [Catalytic activity/Vol] 15 U/L Normal 15-37 [facility] Comment on above: Performed By: #### U MAXI, LIPID, MG, CMP, DBIL, PHOS #### [facility] [address] [address] [address] Sarmad Patino Bilirubin [Mass/Vol] 0.5 mg/dL Normal 0.2-1.0 [facility] Comment on above: Performed By: #### U MAXI, LIPID, MG, CMP, DBIL, PHOS #### [facility] [address] [address] [address] Sarmad Patino Calcium [Mass/Vol] 9.7 mg/dL Normal 8.5-10.1 [facility] Comment on above: Performed By: #### U MAXI, LIPID, MG, CMP, DBIL, PHOS #### [facility] [address] [address] [address] Sarmad Patino Chloride [Moles/Vol] 105 mmol/L Normal 98-107 [facility] Comment on above: Performed By: #### U MAXI, LIPID, MG, CMP, DBIL, PHOS #### [facility] [address] [place] [address] Dr. Sarmad Patino CO2 [Moles/Vol] 26.6 mmol/L Normal 21.0-32.0 [facility] Comment on above: Performed By: #### U MAXI, LIPID, MG, CMP, DBIL, PHOS #### [facility] [address] [place] [address] Dr. Sarmad Patino Creatinine [Mass/Vol] 0.80 mg/dL Normal 0.55-1.02 [facility] Comment on above: Performed By: #### U MAXI, LIPID, MG, CMP, DBIL, PHOS #### [facility] [address] [place] [address] Dr. Sarmad Patino EGFR-AF NIUEAN >60 Normal >=60 [facility] Comment on above: Performed By: #### U MAXI, LIPID, MG, CMP, DBIL, PHOS #### [facility] [address] [address] [address] Sarmad Patino EGFR-NON AF NIUEAN >60 Normal >=60 [facility] Comment on above: Performed By: #### U MAXI, LIPID, MG, CMP, DBIL, PHOS #### [facility] [address] [address] [address] Sarmad Patino Globulin (S) [Mass/Vol] 3.0 g/dL Normal [facility] Comment on above: Performed By: #### U MAXI, LIPID, MG, CMP, DBIL, PHOS #### [facility] [address] [place] [address] Dr. Sarmad Patino Glucose [Mass/Vol] 99 mg/dL Normal 74-106 [facility] Comment on above: Performed By: #### U MAXI, LIPID, MG, CMP, DBIL, PHOS #### [facility] [address] [place] [address] Dr. Sarmad Patino Potassium [Moles/Vol] 3.9 mmol/L Normal 3.5-5.1 [facility] Comment on above: Performed By: #### U MAXI, LIPID, MG, CMP, DBIL, PHOS #### [facility] [address] [place] [address] Dr. Sarmad Patino Protein [Mass/Vol] 7.0 g/dL Normal 6.4-8.2 [facility] Comment on above: Performed By: #### U MAXI, LIPID, MG, CMP, DBIL, PHOS #### [facility] [address] [place] [address] Dr. Sarmad Patino Sodium [Moles/Vol] 142 mmol/L Normal 136-145 [facility] Comment on above: Performed By: #### U MAXI, LIPID, MG, CMP, DBIL, PHOS #### [facility] [address] [place] [address] Dr. Sarmad Patino Urea nitrogen [Mass/Vol] 14.0 mg/dL Normal 7.0-18.0 [facility] Comment on above: Performed By: #### U MAXI, LIPID, MG, CMP, DBIL, PHOS #### [facility] [address] [place] [address] Dr. Sarmad Patino Urea nitrogen/Creatinine [Mass ratio] 17.5 mg/mg Normal [facility] Comment on above: Performed By: #### U MAXI, LIPID, MG, CMP, DBIL, PHOS #### [facility] [address] [place] [address] Dr. Sarmad Patino URIC ACID SERUMon 04-08-2022 Urate [Mass/Vol] 5.2 mg/dL Normal 2.6-6.0 [facility] Comment on above: Performed By: #### U MAXI, LIPID, MG, CMP, DBIL, PHOS #### [facility] [address] [address] [address] Sarmad Patino BK VIRUS PCR QUANTon 022 BKV DNA QUANT PCR PLASMA Negative Normal Negative [facility] Comment on above: Result Comment: No B K DNA detected. . The linear range of the assay is 22 - 100,000,000 IU/mL. Performed By: #### D DAVIDSON, MG, PHOS, CMP, LIPID, URIC #### [facility] [address] [address] [address] Sarmad Patino Log10 BKV DNA Plasma Normal [facility] Comment on above: Performed By: #### D DAVIDSON, MG, PHOS, CMP, LIPID, URIC #### [facility] [address] [address] [address] Sarmad Patino FK506 (TACROLIMUS) WHOLE BLO ODon 03-13-2022 Tacrolimus (FK506), Blood 5.0 ng/mL Normal 2.0-20.0 [facility] Comment on above: Result Comment: Trou gh (immediately following transplant) 15.0 . Trough (steady state, 2 weeks or more after transplant): 3.0 - 8.0 . Performed by LC-MS/MS technology. Performed By: #### D DAVIDSON, MG, PHOS, CMP, LIPID, URIC #### [facility] [address] [address] [address] Sarmad Patino GLYCOHEMOGLOBIN A1Con 2021 ADA RECOMMENDATION SEE BELOW Normal [facility] Comment on above: Result Comment: ADA RECOMMENDED LIMIT 4.0 - 6.0 ADA THERAPEUTIC TARGET < 7.0 ACTION SUGGESTED > 7.0 Performed By: #### D DAVIDSON, MG, PHOS, CMP, LIPID, URIC #### [facility] [address] [address] [address] Sarmad Patino Glucose [Mass/Vol] 111 mg/dL Normal [facility] Comment on above: Performed By: #### D DAVIDSON, MG, PHOS, CMP, LIPID, URIC #### [facility] [address] [address] [address] Sarmad Patino HbA1c (Bld) [Mass fraction] 5.5 % Normal 4.5-6.2 [facility] Comment on above: Performed By: #### D DAVIDSON, MG, PHOS, CMP, LIPID, URIC #### [facility] [address] [place] [address] Dr. Sarmad Patino LIVER PROFILEon 03-11-2022 Albumin [Mass/Vol] 3.7 g/dL Normal 3.4-5.0 [facility] Comment on above: Performed By: #### D DAVIDSON, MG, PHOS, CMP, LIPID, URIC #### [facility] [address] [place] [address] Dr. Sarmad Patino Albumin/Globulin [Mass ratio] 1.1 {ratio} Normal [facility] Comment on above: Performed By: #### D DAVIDSON, MG, PHOS, CMP, LIPID, URIC #### [facility] [address] [place] [address] Dr. Sarmad Patino ALP [Catalytic activity/Vol] 124 U/L Critically high 46-116 [facility] Comment on above: Performed By: #### D DAVIDSON, MG, PHOS, CMP, LIPID, URIC #### [facility] [address] [place] [address] Dr. Sarmad Patino ALT [Catalytic activity/Vol] 17 U/L Normal 14-59 [facility] Comment on above: Performed By: #### D DAVIDSON, MG, PHOS, CMP, LIPID, URIC #### [facility] [address] [place] [address] Dr. Sarmad Patino AST [Catalytic activity/Vol] 16 U/L Normal 15-37 [facility] Comment on above: Performed By: #### D DAVIDSON, MG, PHOS, CMP, LIPID, URIC #### [facility] [address] [place] [address] Dr. Sarmad Patino BILI, CONJUGATED 0.2 mg/dL Normal 0.0-0.2 [facility] Comment on above: Performed By: #### D DAVIDSON, MG, PHOS, CMP, LIPID, URIC #### [facility] [address] [address] [address] Sarmad Patino Bilirubin [Mass/Vol] 0.6 mg/dL Normal 0.2-1.0 [facility] Comment on above: Performed By: #### D DAVIDSON, MG, PHOS, CMP, LIPID, URIC #### [facility] [address] [place] [address] Dr. Sarmad Patino Globulin (S) [Mass/Vol] 3.4 g/dL Normal [facility] Comment on above: Performed By: #### D DAVIDSON, MG, PHOS, CMP, LIPID, URIC #### [facility] [address] [place] [address] Dr. Sarmad Patino Protein [Mass/Vol] 7.1 g/dL Normal 6.4-8.2 [facility] Comment on above: Performed By: #### D DAVIDSON, MG, PHOS, CMP, LIPID, URIC #### [facility] [address] [place] [address] Dr. Sarmad Patino MAGNESIUMon 03-11-2022 Magnesium [Mass/Vol] 1.6 mg/dL Critically low 1.8-2.4 [facility] Comment on above: Performed By: #### D DAVIDSON, MG, PHOS, CMP, LIPID, URIC #### [facility] [address] [place] [address] Dr. Sarmad Patino PHOSPHORUSon 03-11-2022 Phosphate [Mass/Vol] 3.5 mg/dL Normal 2.6-4.7 [facility] Comment on above: Performed By: #### D DAVIDSON, MG, PHOS, CMP, LIPID, URIC #### [facility] [address] [place] [address] Dr. Sarmad Patino URIC ACID SERUMon 03-11-2022 Urate [Mass/Vol] 5.3 mg/dL Normal 2.6-6.0 [facility] Comment on above: Performed By: #### D DAVIDSON, MG, PHOS, CMP, LIPID, URIC #### [facility] [address] [address] [address] Sarmad Patino MYCOPHENOLIC ACIDon 02-19-20 22 Mycophenolic Acid 1.5 ug/mL Normal 1.0-3.5 [facility] Comment on above: Performed By: #### D DAVIDSON, MG, PHOS, CMP, LIPID, URIC #### [facility] [address] [address] [address] Sarmad Patino Mycophenolic Acid Glucuronide 32 ug/mL Normal 15-125 [facility] Comment on above: Result Comment: [facility] 's Reference Range: 35-100 mcg/mL. Performed By: #### D DAVIDSON, MG, PHOS, CMP, LIPID, URIC #### [facility] [address] [address] [address] Sarmad Patino BK VIRUS PCR QUANTon 022 BKV DNA QUANT PCR PLASMA Negative Normal Negative [facility] Comment on above: Result Comment: No B K DNA detected. . The linear range of the assay is 22 - 100,000,000 IU/mL. Performed By: #### D DAVIDSON, MG, PHOS, CMP, LIPID, URIC #### [facility] [address] [address] [address] Sarmad Patino Log10 BKV DNA Plasma Normal [facility] Comment on above: Performed By: #### D DAVIDSON, MG, PHOS, CMP, LIPID, URIC #### [facility] [address] [address] [address] Sarmad Patino FK506 (TACROLIMUS) WHOLE BLO ODon 02-11-2022 Tacrolimus (FK506), Blood 4.4 ng/mL Normal 2.0-20.0 [facility] Comment on above: Result Comment: Trou gh (immediately following transplant) 15.0 . Trough (steady state, 2 weeks or more after transplant): 3.0 - 8.0 . Performed by LC-MS/MS technology. Performed By: #### U MAXI, LIPID, MG, CMP, DBIL, PHOS #### [facility] [address] [address] [address] Sarmad Patino BILIRUBIN CONJUGATED (DIRECT )on 02-08-2022 BILI, CONJUGATED 0.1 mg/dL Normal 0.0-0.2 [facility] Comment on above: Performed By: #### D DAVIDSON, MG, PHOS, CMP, LIPID, URIC #### [facility] [address] [place] [address] Dr. Sarmad Patino CBC AUTO DIFFon 02-08-2022 BASO # 0.0 103/ul Normal 0.0-0.1 [facility] Comment on above: Performed By: #### D DAVIDSON, MG, PHOS, CMP, LIPID, URIC #### [facility] [address] [place] [address] Dr. Sarmad Patino Basophils/100 WBC (Bld) 0.3 % Normal 0.2-2.0 [facility] Comment on above: Performed By: #### D DAVIDSON, MG, PHOS, CMP, LIPID, URIC #### [facility] [address] [place] [address] Dr. Sarmad Patino EO # 0.1 103/ul Normal 0.0-0.7 [facility] Comment on above: Performed By: #### D DAVIDSON, MG, PHOS, CMP, LIPID, URIC #### [facility] [address] [place] [address] Dr. Sarmad Patino Eosinophils/100 WBC (Bld) 1.0 % Normal 0.9-7.0 [facility] Comment on above: Performed By: #### D DAVIDSON, MG, PHOS, CMP, LIPID, URIC #### [facility] [address] [place] [address] Dr. Sarmad Patino Erythrocyte distribution width (RBC) [Ratio] 15.9 % Critically high 11.0-15.0 [facility] Comment on above: Performed By: #### D DAVIDSON, MG, PHOS, CMP, LIPID, URIC #### [facility] [address] [place] [address] Dr. Sarmad Patino Hematocrit (Bld) [Volume fraction] 42.2 % Normal 36.0-48.0 [facility] Comment on above: Performed By: #### D DAVIDSON, MG, PHOS, CMP, LIPID, URIC #### [facility] [address] [address] [address] Sarmad Patino Hemoglobin (Bld) [Mass/Vol] 13.8 g/dL Normal 12.0-16.0 [facility] Comment on above: Performed By: #### D DAVIDSON, MG, PHOS, CMP, LIPID, URIC #### [facility] [address] [address] [address] Sarmad Patino IG # 0.10 10e3/ul Critically high 0.00-0.03 [facility] Comment on above: Performed By: #### D DAVIDSON, MG, PHOS, CMP, LIPID, URIC #### [facility] [address] [place] [address] Dr. Sarmad Patino IG % 1.1 % Critically high 0.0-0.5 [facility] Comment on above: Performed By: #### D DAVIDSON, MG, PHOS, CMP, LIPID, URIC #### [facility] [address] [place] [address] Dr. Sarmad Patino LYMPH # 1.2 103/ul Normal 1.2-3.8 [facility] Comment on above: Performed By: #### D DAVIDSON, MG, PHOS, CMP, LIPID, URIC #### [facility] [address] [place] [address] Dr. Sarmad Patino Lymphocytes/100 WBC (Bld) 12.6 % Critically low 20.5-60.0 [facility] Comment on above: Performed By: #### D DAVIDSON, MG, PHOS, CMP, LIPID, URIC #### [facility] [address] [address] [address] aSrmad Patino MANUAL DIFF REQ NO Normal [facility] Comment on above: Performed By: #### D DAVIDSON, MG, PHOS, CMP, LIPID, URIC #### [facility] [address] [place] [address] Dr. Sarmad Patino MCH (RBC) [Entitic mass] 28.3 pg Normal 26.7-34.0 [facility] Comment on above: Performed By: #### D DAVIDSON, MG, PHOS, CMP, LIPID, URIC #### [facility] [address] [place] [address] Dr. Sarmad Patino MCHC (RBC) [Mass/Vol] 32.7 g/dL Normal 29.9-35.2 [facility] Comment on above: Performed By: #### D DAVIDSON, MG, PHOS, CMP, LIPID, URIC #### [facility] [address] [place] [address] Dr. Sarmad Patino MCV (RBC) [Entitic vol] 86.7 fL Normal 81.0-99.0 [facility] Comment on above: Performed By: #### D DAVIDSON, MG, PHOS, CMP, LIPID, URIC #### [facility] [address] [place] [address] Dr. Sarmad Patino MONO # 1.0 103/ul Critically high 0.3-0.8 [facility] Comment on above: Performed By: #### D DAVIDSON, MG, PHOS, CMP, LIPID, URIC #### [facility] [address] [place] [address] Dr. Sarmad Patino Monocytes/100 WBC (Bld) 10.7 % Normal 1.7-12.0 [facility] Comment on above: Performed By: #### D DAVIDSON, MG, PHOS, CMP, LIPID, URIC #### [facility] [address] [place] [address] Dr. Sarmad Patino NEUT # 6.9 103/ul Critically high 1.4-6.5 [facility] Comment on above: Performed By: #### D DAVIDSON, MG, PHOS, CMP, LIPID, URIC #### [facility] [address] [place] [address] Dr. Sarmad Patino Neutrophils/100 WBC (Bld) 74.3 % Normal 43.0-75.0 [facility] Comment on above: Performed By: #### D DAVIDSON, MG, PHOS, CMP, LIPID, URIC #### [facility] [address] [place] [address] Dr. Sarmad Patino Platelet mean volume (Bld) [Entitic vol] 11.1 fL Normal 9.5-13.5 [facility] Comment on above: Performed By: #### D DAVIDSON, MG, PHOS, CMP, LIPID, URIC #### [facility] [address] [address] [address] Sarmad Patino PLT 307 103/ul Normal 150-450 [facility] Comment on above: Performed By: #### D DAVIDSON, MG, PHOS, CMP, LIPID, URIC #### [facility] [address] [address] [address] Sarmad Patino RBC 4.87 106/ul Normal 4.20-5.40 [facility] Comment on above: Performed By: #### D DAVIDSON, MG, PHOS, CMP, LIPID, URIC #### [facility] [address] [address] [address] Sarmad Patino WBC 9.3 103/ul Normal 4.0-11.0 [facility] Comment on above: Performed By: #### D DAVIDSON, MG, PHOS, CMP, LIPID, URIC #### [facility] [address] [address] [address] Sarmad Patino GLYCOHEMOGLOBIN A1Con 2021 ADA RECOMMENDATION SEE BELOW Normal [facility] Comment on above: Result Comment: ADA RECOMMENDED LIMIT 4.0 - 6.0 ADA THERAPEUTIC TARGET < 7.0 ACTION SUGGESTED > 7.0 Performed By: #### D DAVIDSON, MG, PHOS, CMP, LIPID, URIC #### [facility] [address] [address] [address] Sarmad Patino Glucose [Mass/Vol] 134 mg/dL Normal [facility] Comment on above: Performed By: #### D DAVIDSON, MG, PHOS, CMP, LIPID, URIC #### [facility] [address] [address] [address] Sarmad Patino HbA1c (Bld) [Mass fraction] 6.3 % Critically high 4.5-6.2 [facility] Comment on above: Performed By: #### D DAVIDSON, MG, PHOS, CMP, LIPID, URIC #### [facility] [address] [address] [address] Sarmad Patino LIPID PROFILEon 02-08-2022 CHOL-HDL RATIO NORM SEE BELOW Normal [facility] Comment on above: Result Comment: 3.3 - 4.4 LOW RISK 4.4 - 7.1 AVERAGE RISK 7.1 - 11.0 MODERATE RISK >11.0 HIGH RISK Performed By: #### D DAVIDSON, MG, PHOS, CMP, LIPID, URIC #### [facility] [address] [address] [address] Sarmad Patino Cholesterol [Mass/Vol] 180 mg/dL Normal <=200 [facility] Comment on above: Performed By: #### D DAVIDSON, MG, PHOS, CMP, LIPID, URIC #### [facility] [address] [address] [address] Sarmad Patino Cholesterol in HDL [Mass/Vol] 58 mg/dL Normal 40-60 [facility] Comment on above: Performed By: #### D DAVIDSON, MG, PHOS, CMP, LIPID, URIC #### [facility] [address] [address] [address] Sarmad Patino Cholesterol in LDL [Mass/Vol] 86.6 mg/dL Normal [facility] Comment on above: Performed By: #### D DAVIDSON, MG, PHOS, CMP, LIPID, URIC #### [facility] [address] [address] [address] Sarmad Patino Cholesterol.total/Cho lesterol in HDL [Mass ratio] 3.1 {ratio} Normal [facility] Comment on above: Performed By: #### D DAVISDON, MG, PHOS, CMP, LIPID, URIC #### [facility] [address] [address] [address] Sarmad Patino HDL NORMAL > or = 60 mg/dl - LO W CARDIOVASCULAR RISK <40 mg/dl - HIGH CARDIOVASCULAR RISK Normal [facility] Comment on above: Performed By: #### D DAVIDSON, MG, PHOS, CMP, LIPID, URIC #### [facility] [address] [address] [address] Sarmad Patino LDL CALC NORMAL SEE BELOW Normal [facility] Comment on above: Result Comment: <100 mg/dl OPTIMAL 100 - 129 mg/dl NEAR OR ABOVE OPTIMAL 130 - 159 mg/dl BORDERLINE HIGH 160 - 189 mg/dl HIGH >190 mg/dl VERY HIGH Performed By: #### D DAVIDSON, MG, PHOS, CMP, LIPID, URIC #### [facility] [address] [address] [address] Sarmad Patino Triglyceride [Mass/Vol] 177 mg/dL Critically high <=150 [facility] Comment on above: Performed By: #### D DAVIDSON, MG, PHOS, CMP, LIPID, URIC #### [facility] [address] [place] [address] Dr. Sarmad Patino VLDL CALC 35.4 mg/dL Normal [facility] Comment on above: Performed By: #### D DAVIDSON, MG, PHOS, CMP, LIPID, URIC #### [facility] [address] [place] [address] Dr. Sarmad Patino MAGNESIUMon 02-08-2022 Magnesium [Mass/Vol] 1.8 mg/dL Normal 1.8-2.4 [facility] Comment on above: Performed By: #### D DAVIDSON, MG, PHOS, CMP, LIPID, URIC #### [facility] [address] [place] [address] Dr. Sarmad Patino PHOSPHORUSon 02-08-2022 Phosphate [Mass/Vol] 3.3 mg/dL Normal 2.6-4.7 [facility] Comment on above: Performed By: #### D DAVIDSON, MG, PHOS, CMP, LIPID, URIC #### [facility] [address] [place] [address] Dr. Sarmad Patino PROF 14(COMP METB)on 022 Albumin [Mass/Vol] 3.8 g/dL Normal 3.4-5.0 [facility] Comment on above: Performed By: #### D DAVIDSON, MG, PHOS, CMP, LIPID, URIC #### [facility] [address] [place] [address] Dr. Sarmad Patino Albumin/Globulin [Mass ratio] 1.3 {ratio} Normal [facility] Comment on above: Performed By: #### D DAVIDSON, MG, PHOS, CMP, LIPID, URIC #### [facility] [address] [place] [address] Dr. Sarmad Patino ALP [Catalytic activity/Vol] 144 U/L Critically high 46-116 [facility] Comment on above: Performed By: #### D DAVIDSON, MG, PHOS, CMP, LIPID, URIC #### [facility] [address] [address] [address] Sarmad Patino ALT [Catalytic activity/Vol] 24 U/L Normal 14-59 [facility] Comment on above: Performed By: #### D DAVIDSON, MG, PHOS, CMP, LIPID, URIC #### [facility] [address] [place] [address] Dr. Sarmad Patino Anion gap [Moles/Vol] 13.7 mmol/L Normal [facility] Comment on above: Performed By: #### D DAVIDSON, MG, PHOS, CMP, LIPID, URIC #### [facility] [address] [place] [address] Dr. Sarmad Patino AST [Catalytic activity/Vol] 19 U/L Normal 15-37 [facility] Comment on above: Performed By: #### D DAVIDSON, MG, PHOS, CMP, LIPID, URIC #### [facility] [address] [place] [address] Dr. Sarmad Patino Bilirubin [Mass/Vol] 0.5 mg/dL Normal 0.2-1.0 [facility] Comment on above: Performed By: #### D DAVIDSON, MG, PHOS, CMP, LIPID, URIC #### [facility] [address] [place] [address] Dr. Sarmad Patino Calcium [Mass/Vol] 9.6 mg/dL Normal 8.5-10.1 [facility] Comment on above: Performed By: #### D DAVIDSON, MG, PHOS, CMP, LIPID, URIC #### [facility] [address] [address] [address] Sarmad Patino Chloride [Moles/Vol] 103 mmol/L Normal 98-107 [facility] Comment on above: Performed By: #### D DAVIDSON, MG, PHOS, CMP, LIPID, URIC #### [facility] [address] [place] [address] Dr. Sarmad Patino CO2 [Moles/Vol] 26.6 mmol/L Normal 21.0-32.0 [facility] Comment on above: Performed By: #### D DAVIDSON, MG, PHOS, CMP, LIPID, URIC #### [facility] [address] [address] [address] Sarmad Patino Creatinine [Mass/Vol] 0.75 mg/dL Normal 0.55-1.02 [facility] Comment on above: Performed By: #### D DAVIDSON, MG, PHOS, CMP, LIPID, URIC #### [facility] [address] [address] [address] Sarmad Patino EGFR-AF NIUEAN >60 Normal >=60 [facility] Comment on above: Performed By: #### D DAVIDSON, MG, PHOS, CMP, LIPID, URIC #### [facility] [address] [address] [address] Sarmad Patino EGFR-NON AF NIUEAN >60 Normal >=60 [facility] Comment on above: Performed By: #### D DAVIDSON, MG, PHOS, CMP, LIPID, URIC #### [facility] [address] [address] [address] Sarmad Patino Globulin (S) [Mass/Vol] 3.0 g/dL Normal [facility] Comment on above: Performed By: #### D DAVIDSON, MG, PHOS, CMP, LIPID, URIC #### [facility] [address] [address] [address] Sarmad Patino Glucose [Mass/Vol] 99 mg/dL Normal 74-106 [facility] Comment on above: Performed By: #### D DAVIDSON, MG, PHOS, CMP, LIPID, URIC #### [facility] [address] [address] [address] Sarmad Patino Potassium [Moles/Vol] 4.3 mmol/L Normal 3.5-5.1 [facility] Comment on above: Performed By: #### D DAVIDSON, MG, PHOS, CMP, LIPID, URIC #### [facility] [address] [address] [address] Sarmad Patino Protein [Mass/Vol] 6.8 g/dL Normal 6.4-8.2 [facility] Comment on above: Performed By: #### D DAVIDSON, MG, PHOS, CMP, LIPID, URIC #### [facility] [address] [place] [address] Dr. Sarmad Patino Sodium [Moles/Vol] 139 mmol/L Normal 136-145 [facility] Comment on above: Performed By: #### D DAVIDSON, MG, PHOS, CMP, LIPID, URIC #### [facility] [address] [place] [address] Dr. Sarmad Patino Urea nitrogen [Mass/Vol] 16.0 mg/dL Normal 7.0-18.0 [facility] Comment on above: Performed By: #### D DAVIDSON, MG, PHOS, CMP, LIPID, URIC #### [facility] [address] [place] [address] Dr. Sarmad Patino Urea nitrogen/Creatinine [Mass ratio] 21.3 mg/mg Normal [facility] Comment on above: Performed By: #### D DAVIDSON, MG, PHOS, CMP, LIPID, URIC #### [facility] [address] [place] [address] Dr. Sarmad Patino URIC ACID SERUMon 02-08-2022 Urate [Mass/Vol] 5.4 mg/dL Normal 2.6-6.0 [facility] Comment on above: Performed By: #### D DAVIDSON, MG, PHOS, CMP, LIPID, URIC #### [facility] [address] [place] [address] Dr. Sarmad Patino BK VIRUS PCR QUANTon 022 BKV DNA QUANT PCR PLASMA 27 IU/mL Normal Negative [facility] Comment on above: Result Comment: The linear range of the assay is 22 - 100,000,000 IU/mL. Performed By: #### D DAVIDSON, MG, PHOS, CMP, LIPID, URIC #### [facility] [address] [place] [address] Dr. Sarmad Patino Log10 BKV DNA Plasma 1.431 log10 IU/mL Normal [facility] Comment on above: Performed By: #### D DAVIDSON, MG, PHOS, CMP, LIPID, URIC #### [facility] [address] [place] [address] Dr. Sarmad Patino FK506 (TACROLIMUS) WHOLE BLO ODon 01-30-2022 Tacrolimus (FK506), Blood 6.5 ng/mL Normal 2.0-20.0 [facility] Comment on above: Result Comment: Trou gh (immediately following transplant) 15.0 . Trough (steady state, 2 weeks or more after transplant): 3.0 - 8.0 . Performed by LC-MS/MS technology. Performed By: #### D DAVIDSON, MG, PHOS, CMP, LIPID, URIC #### [facility] [address] [place] [address] Dr. Sarmad Patino RAPAMUNE(SIROLIMUS)on 2021 Rapamune(Sirolimus), whole blood 9.9 ng/mL Normal 3.0-20.0 [facility] Comment on above: Result Comment: Perf ormed by LC/MS-MS technology . This test was developed and its performance characteristics determined by [employer]). It has not been cleared or approved by the Food and Drug Administration. Performed By: #### D DAVIDSON, MG, PHOS, CMP, LIPID, URIC #### [facility] [address] [place] [address] Dr. Sarmad Patino BILIRUBIN CONJUGATED (DIRECT )on 01-28-2022 BILI, CONJUGATED 0.1 mg/dL Normal 0.0-0.2 [facility] Comment on above: Performed By: #### D DAVIDSON, MG, PHOS, CMP, LIPID, URIC #### [facility] [address] [place] [address] Dr. Sarmad Patino CBC AUTO DIFFon 01-28-2022 BASO # 0.0 103/ul Normal 0.0-0.1 [facility] Comment on above: Performed By: #### D DAVIDSON, MG, PHOS, CMP, LIPID, URIC #### [facility] [address] [place] [address] Dr. Sarmad Patino Basophils/100 WBC (Bld) 0.3 % Normal 0.2-2.0 [facility] Comment on above: Performed By: #### D DAVIDSON, MG, PHOS, CMP, LIPID, URIC #### [facility] [address] [address] [address] Sarmad Patino EO # 0.2 103/ul Normal 0.0-0.7 [facility] Comment on above: Performed By: #### D DAVIDSON, MG, PHOS, CMP, LIPID, URIC #### [facility] [address] [address] [address] Sarmad Patino Eosinophils/100 WBC (Bld) 3.1 % Normal 0.9-7.0 [facility] Comment on above: Performed By: #### D DAVIDSON, MG, PHOS, CMP, LIPID, URIC #### [facility] [address] [place] [address] Dr. Sarmad Patino Erythrocyte distribution width (RBC) [Ratio] 15.4 % Critically high 11.0-15.0 [facility] Comment on above: Performed By: #### D DAVIDSON, MG, PHOS, CMP, LIPID, URIC #### [facility] [address] [place] [address] Dr. Sarmad Patino Hematocrit (Bld) [Volume fraction] 42.6 % Normal 36.0-48.0 [facility] Comment on above: Performed By: #### D DAVIDSON, MG, PHOS, CMP, LIPID, URIC #### [facility] [address] [place] [address] Dr. Sarmad Patino Hemoglobin (Bld) [Mass/Vol] 14.0 g/dL Normal 12.0-16.0 [facility] Comment on above: Performed By: #### D DAVIDSON, MG, PHOS, CMP, LIPID, URIC #### [facility] [address] [place] [address] Dr. Sarmad Patino IG # 0.05 10e3/ul Critically high 0.00-0.03 [facility] Comment on above: Performed By: #### D DAVIDSON, MG, PHOS, CMP, LIPID, URIC #### [facility] [address] [place] [address] Dr. Sarmad Patino IG % 0.7 % Critically high 0.0-0.5 [facility] Comment on above: Performed By: #### D DAVIDSON, MG, PHOS, CMP, LIPID, URIC #### [facility] [address] [place] [address] Dr. Sarmad Patino LYMPH # 1.1 103/ul Critically low 1.2-3.8 [facility] Comment on above: Performed By: #### D DAVIDSON, MG, PHOS, CMP, LIPID, URIC #### [facility] [address] [place] [address] Dr. Sarmad Patino Lymphocytes/100 WBC (Bld) 15.8 % Critically low 20.5-60.0 [facility] Comment on above: Performed By: #### D DAVIDSON, MG, PHOS, CMP, LIPID, URIC #### [facility] [address] [place] [address] Dr. Sarmad Patino MANUAL DIFF REQ NO Normal [facility] Comment on above: Performed By: #### D DAVIDSON, MG, PHOS, CMP, LIPID, URIC #### [facility] [address] [place] [address] Dr. Sarmad Patino MCH (RBC) [Entitic mass] 28.3 pg Normal 26.7-34.0 [facility] Comment on above: Performed By: #### D DAVIDSON, MG, PHOS, CMP, LIPID, URIC #### [facility] [address] [place] [address] Dr. Sarmad Patino MCHC (RBC) [Mass/Vol] 32.9 g/dL Normal 29.9-35.2 [facility] Comment on above: Performed By: #### D DAVIDSON, MG, PHOS, CMP, LIPID, URIC #### [facility] [address] [place] [address] Dr. Sarmad Patino MCV (RBC) [Entitic vol] 86.2 fL Normal 81.0-99.0 [facility] Comment on above: Performed By: #### D DAVIDSON, MG, PHOS, CMP, LIPID, URIC #### [facility] [address] [place] [address] Dr. Sarmad Patino MONO # 0.8 103/ul Normal 0.3-0.8 [facility] Comment on above: Performed By: #### D DAVIDSON, MG, PHOS, CMP, LIPID, URIC #### [facility] [address] [place] [address] Dr. Sarmad Patino Monocytes/100 WBC (Bld) 11.0 % Normal 1.7-12.0 [facility] Comment on above: Performed By: #### D DAVIDSON, MG, PHOS, CMP, LIPID, URIC #### [facility] [address] [address] [address] Sarmad Patino NEUT # 4.8 103/ul Normal 1.4-6.5 [facility] Comment on above: Performed By: #### D DAVIDSON, MG, PHOS, CMP, LIPID, URIC #### [facility] [address] [place] [address] Dr. Sarmad Patino Neutrophils/100 WBC (Bld) 69.1 % Normal 43.0-75.0 [facility] Comment on above: Performed By: #### D DAVIDSON, MG, PHOS, CMP, LIPID, URIC #### [facility] [address] [place] [address] Dr. Sarmad Patino Platelet mean volume (Bld) [Entitic vol] 10.8 fL Normal 9.5-13.5 [facility] Comment on above: Performed By: #### D DAVIDSON, MG, PHOS, CMP, LIPID, URIC #### [facility] [address] [place] [address] Dr. Sarmad Patino PLT 208 103/ul Normal 150-450 [facility] Comment on above: Performed By: #### D DAVIDSON, MG, PHOS, CMP, LIPID, URIC #### [facility] [address] [place] [address] Dr. Sarmad Patino RBC 4.94 106/ul Normal 4.20-5.40 [facility] Comment on above: Performed By: #### D DAVIDSON, MG, PHOS, CMP, LIPID, URIC #### [facility] [address] [place] [address] Dr. Sarmad Patino WBC 7.0 103/ul Normal 4.0-11.0 [facility] Comment on above: Performed By: #### D DAVIDSON, MG, PHOS, CMP, LIPID, URIC #### [facility] [address] [address] [address] Sarmad Patino GLYCOHEMOGLOBIN A1Con 2021 ADA RECOMMENDATION SEE BELOW Normal [facility] Comment on above: Result Comment: ADA RECOMMENDED LIMIT 4.0 - 6.0 ADA THERAPEUTIC TARGET < 7.0 ACTION SUGGESTED > 7.0 Performed By: #### D DAVIDSON, MG, PHOS, CMP, LIPID, URIC #### [facility] [address] [address] [address] Sarmad Patino Glucose [Mass/Vol] 137 mg/dL Normal [facility] Comment on above: Performed By: #### D DAVIDSON, MG, PHOS, CMP, LIPID, URIC #### [facility] [address] [place] [address] Dr. Sarmad Patino HbA1c (Bld) [Mass fraction] 6.4 % Critically high 4.5-6.2 [facility] Comment on above: Performed By: #### D DAVIDSON, MG, PHOS, CMP, LIPID, URIC #### [facility] [address] [address] [address] Sarmad Patino LIPID PROFILEon 01-28-2022 CHOL-HDL RATIO NORM SEE BELOW Normal [facility] Comment on above: Result Comment: 3.3 - 4.4 LOW RISK 4.4 - 7.1 AVERAGE RISK 7.1 - 11.0 MODERATE RISK >11.0 HIGH RISK Performed By: #### D DAVIDSON, MG, PHOS, CMP, LIPID, URIC #### [facility] [address] [address] [address] Sarmad Patino Cholesterol [Mass/Vol] 209 mg/dL Critically high <=200 [facility] Comment on above: Performed By: #### D DAVIDSON, MG, PHOS, CMP, LIPID, URIC #### [facility] [address] [address] [address] Sarmad Patino Cholesterol in HDL [Mass/Vol] 59 mg/dL Normal 40-60 [facility] Comment on above: Performed By: #### D DAVIDSON, MG, PHOS, CMP, LIPID, URIC #### [facility] [address] [address] [address] Sarmad Patino Cholesterol in LDL [Mass/Vol] 100.4 mg/dL Normal [facility] Comment on above: Performed By: #### D DAVIDSON, MG, PHOS, CMP, LIPID, URIC #### [facility] [address] [address] [address] Sarmad Patino Cholesterol.total/Cho lesterol in HDL [Mass ratio] 3.5 {ratio} Normal [facility] Comment on above: Performed By: #### D DAVIDSON, MG, PHOS, CMP, LIPID, URIC #### [facility] [address] [address] [address] Sarmad Patino HDL NORMAL > or = 60 mg/dl - LO W CARDIOVASCULAR RISK <40 mg/dl - HIGH CARDIOVASCULAR RISK Normal [facility] Comment on above: Performed By: #### D DAVIDSON, MG, PHOS, CMP, LIPID, URIC #### [facility] [address] [address] [address] Sarmad Patino LDL CALC NORMAL SEE BELOW Normal [facility] Comment on above: Result Comment: <100 mg/dl OPTIMAL 100 - 129 mg/dl NEAR OR ABOVE OPTIMAL 130 - 159 mg/dl BORDERLINE HIGH 160 - 189 mg/dl HIGH >190 mg/dl VERY HIGH Performed By: #### D DAVIDSON, MG, PHOS, CMP, LIPID, URIC #### [facility] [address] [address] [address] Sarmad Patino Triglyceride [Mass/Vol] 248 mg/dL Critically high <=150 [facility] Comment on above: Performed By: #### D DAVIDSON, MG, PHOS, CMP, LIPID, URIC #### [facility] [address] [address] [address] Sarmad Patino VLDL CALC 49.6 mg/dL Normal [facility] Comment on above: Performed By: #### D DAVIDSON, MG, PHOS, CMP, LIPID, URIC #### [facility] [address] [address] [address] Sarmad Patino MAGNESIUMon 01-28-2022 Magnesium [Mass/Vol] 1.6 mg/dL Critically low 1.8-2.4 [facility] Comment on above: Performed By: #### D DAVIDSON, MG, PHOS, CMP, LIPID, URIC #### [facility] [address] [place] [address] Dr. Sarmad Patino PHOSPHORUSon 01-28-2022 Phosphate [Mass/Vol] 2.7 mg/dL Normal 2.6-4.7 [facility] Comment on above: Performed By: #### D DAVIDSON, MG, PHOS, CMP, LIPID, URIC #### [facility] [address] [place] [address] Dr. Sarmad Patino PROF 14(COMP METB)on 022 Albumin [Mass/Vol] 3.3 g/dL Critically low 3.4-5.0 [facility] Comment on above: Performed By: #### D DAVIDSON, MG, PHOS, CMP, LIPID, URIC #### [facility] [address] [place] [address] Dr. Sarmad Patino Albumin/Globulin [Mass ratio] 0.9 {ratio} Normal [facility] Comment on above: Performed By: #### D DAVIDSON, MG, PHOS, CMP, LIPID, URIC #### [facility] [address] [place] [address] Dr. Sarmad Patino ALP [Catalytic activity/Vol] 124 U/L Critically high 46-116 [facility] Comment on above: Performed By: #### D DAVIDSON, MG, PHOS, CMP, LIPID, URIC #### [facility] [address] [place] [address] Dr. Sarmad Patino ALT [Catalytic activity/Vol] 28 U/L Normal 14-59 [facility] Comment on above: Performed By: #### D DAVIDSON, MG, PHOS, CMP, LIPID, URIC #### [facility] [address] [place] [address] Dr. Sarmad Patino Anion gap [Moles/Vol] 12.0 mmol/L Normal [facility] Comment on above: Performed By: #### D DAVIDSON, MG, PHOS, CMP, LIPID, URIC #### [facility] [address] [address] [address] Sarmad Patino AST [Catalytic activity/Vol] 20 U/L Normal 15-37 [facility] Comment on above: Performed By: #### D DAVIDSON, MG, PHOS, CMP, LIPID, URIC #### [facility] [address] [place] [address] Dr. Sarmad Patino Bilirubin [Mass/Vol] 0.5 mg/dL Normal 0.2-1.0 [facility] Comment on above: Performed By: #### D DAVIDSON, MG, PHOS, CMP, LIPID, URIC #### [facility] [address] [address] [address] Sarmad Patino Calcium [Mass/Vol] 9.1 mg/dL Normal 8.5-10.1 [facility] Comment on above: Performed By: #### D DAVIDSON, MG, PHOS, CMP, LIPID, URIC #### [facility] [address] [address] [address] Sarmad Patino Chloride [Moles/Vol] 104 mmol/L Normal 98-107 [facility] Comment on above: Performed By: #### D DAVIDSON, MG, PHOS, CMP, LIPID, URIC #### [facility] [address] [place] [address] Dr. Sarmad Patino CO2 [Moles/Vol] 25.7 mmol/L Normal 21.0-32.0 [facility] Comment on above: Performed By: #### D DAVIDSON, MG, PHOS, CMP, LIPID, URIC #### [facility] [address] [place] [address] Dr. Sarmad Patino Creatinine [Mass/Vol] 0.77 mg/dL Normal 0.55-1.02 [facility] Comment on above: Performed By: #### D DAVIDSON, MG, PHOS, CMP, LIPID, URIC #### [facility] [address] [place] [address] Dr. Sarmad Patino EGFR-AF NIUEAN >60 Normal >=60 [facility] Comment on above: Performed By: #### D DAVIDSON, MG, PHOS, CMP, LIPID, URIC #### [facility] [address] [address] [address] Sarmad Patino EGFR-NON AF NIUEAN >60 Normal >=60 [facility] Comment on above: Performed By: #### D DAVIDSON, MG, PHOS, CMP, LIPID, URIC #### [facility] [address] [address] [address] Sarmad Patino Globulin (S) [Mass/Vol] 3.7 g/dL Normal [facility] Comment on above: Performed By: #### D DAVIDSON, MG, PHOS, CMP, LIPID, URIC #### [facility] [address] [address] [address] Sarmad Patino Glucose [Mass/Vol] 108 mg/dL Critically high 74-106 [facility] Comment on above: Performed By: #### D DAVIDSON, MG, PHOS, CMP, LIPID, URIC #### [facility] [address] [place] [address] Dr. Sarmad Patino Potassium [Moles/Vol] 3.7 mmol/L Normal 3.5-5.1 [facility] Comment on above: Performed By: #### D DAVIDSON, MG, PHOS, CMP, LIPID, URIC #### [facility] [address] [place] [address] Dr. Sarmad Patino Protein [Mass/Vol] 7.0 g/dL Normal 6.4-8.2 [facility] Comment on above: Performed By: #### D DAVIDSON, MG, PHOS, CMP, LIPID, URIC #### [facility] [address] [place] [address] Dr. Sarmad Patino Sodium [Moles/Vol] 138 mmol/L Normal 136-145 [facility] Comment on above: Performed By: #### D DAVIDSON, MG, PHOS, CMP, LIPID, URIC #### [facility] [address] [place] [address] Dr. Sarmad Patino Urea nitrogen [Mass/Vol] 15.0 mg/dL Normal 7.0-18.0 [facility] Comment on above: Performed By: #### D DAVIDSON, MG, PHOS, CMP, LIPID, URIC #### [facility] [address] [place], [place] [address] Dr. Sarmad Patino Urea nitrogen/Creatinine [Mass ratio] 19.5 mg/mg Normal [facility] Comment on above: Performed By: #### D DAVIDSON, MG, PHOS, CMP, LIPID, URIC #### [facility] [address] [address] [address] Sarmad Patino URIC ACID SERUMon 01-28-2022 Urate [Mass/Vol] 4.3 mg/dL Normal 2.6-6.0 [facility] Comment on above: Performed By: #### D DAVIDSON, MG, PHOS, CMP, LIPID, URIC #### [facility] [id number] Sarmad Patino Quick Strepon 01-12-2022 S. pyogenes Org specific cx Ql (Throat) Negative [employer] Other Quick Strep [employer] Other XR CHEST 1 Von 01-07-2022 XR [...] ARTEMIO BERNARD Date: 2022-01-07 15:00 Normal [facility] CBC W MANUAL DIFFon 01-04-20 22 ATYPICAL LYMPH # 1.40 103/ul Normal [facility] Comment on above: Performed By: #### D DAVIDSON, MG, PHOS, CMP, LIPID, URIC #### [facility] [id number] Sarmad Patino ATYPICAL LYMPH % 10 % Normal [facility] Comment on above: Performed By: #### D DAVIDSON, MG, PHOS, CMP, LIPID, URIC #### [facility] [address] [address] [address] Sarmad Patino BAND # 0.6 103/ul Critically high 0.0-0.3 [facility] Comment on above: Performed By: #### D DAVIDSON, MG, PHOS, CMP, LIPID, URIC #### [facility] [address] [address] [address] Sarmad Patino BAND % 4 % Normal 0-5 [facility] Comment on above: Performed By: #### D DAVIDSON, MG, PHOS, CMP, LIPID, URIC #### [facility] [address] [place] [address] Dr. Sarmad Patino BASOM # 0.00 103/ul Normal 0.00-0.10 [facility] Comment on above: Performed By: #### D DAVIDSON, MG, PHOS, CMP, LIPID, URIC #### [facility] [address] [place] [address] Dr. Sarmad Patino BASOM % 0.0 % Critically low 0.2-2.0 [facility] Comment on above: Performed By: #### D DAVIDSON, MG, PHOS, CMP, LIPID, URIC #### [facility] [address] [place] [address] Dr. Sarmad Patino BLAST # Normal [facility] Comment on above: Performed By: #### D DAVIDSON, MG, PHOS, CMP, LIPID, URIC #### [facility] [address] [place] [address] Dr. Sarmad Patino BLAST % Normal [facility] Comment on above: Performed By: #### D DAVIDSON, MG, PHOS, CMP, LIPID, URIC #### [facility] [address] [place] [address] Dr. Sarmad Patino CORRECTED WBC Normal 4.0-11.0 [facility] Comment on above: Performed By: #### D DAVIDSON, MG, PHOS, CMP, LIPID, URIC #### [facility] [address] [place] [address] Dr. Sarmad Patino EOS # 0.14 103/ul Normal 0.00-0.70 [facility] Comment on above: Performed By: #### D DAVIDSON, MG, PHOS, CMP, LIPID, URIC #### [facility] [address] [address] [address] Sarmad Patino EOS% 1.0 % Normal 0.9-7.0 [facility] Comment on above: Performed By: #### D DAVIDSON, MG, PHOS, CMP, LIPID, URIC #### [facility] [address] [place] [address] Dr. Sarmad Patino HCT 42.8 % Normal 36.0-48.0 [facility] Comment on above: Performed By: #### D DAIVDSON, MG, PHOS, CMP, LIPID, URIC #### [facility] [address] [place] [address] Dr. Sarmad Patino HGB 14.2 g/dl Normal 12.0-16.0 [facility] Comment on above: Performed By: #### D DAVIDSON, MG, PHOS, CMP, LIPID, URIC #### [facility] [address] [place] [address] Dr. Sarmad Patino LYMPHM # 0.00 103/ul Critically low 1.20-3.80 [facility] Comment on above: Performed By: #### D DAVIDSON, MG, PHOS, CMP, LIPID, URIC #### [facility] [address] [address] [address] Sarmad Patino LYMPHM% 0.0 % Critically low 20.5-60.0 [facility] Comment on above: Performed By: #### D DAVIDSON, MG, PHOS, CMP, LIPID, URIC #### [facility] [address] [address] [address] Sarmad Patino MCH 28.8 pg Normal 26.7-34.0 [facility] Comment on above: Performed By: #### D DAVIDSON, MG, PHOS, CMP, LIPID, URIC #### [facility] [address] [place] [address] Dr. Sarmad Patino MCHC 33.2 g/dl Normal 29.9-35.2 [facility] Comment on above: Performed By: #### D DAVIDSON, MG, PHOS, CMP, LIPID, URIC #### [facility] [address] [place] [address] Dr. Sarmad Patino MCV 86.8 fL Normal 81.0-99.0 [facility] Comment on above: Performed By: #### D DAVIDSON, MG, PHOS, CMP, LIPID, URIC #### [facility] [address] [address] [address] Sarmad Patino METAMYELOCYTE # Normal [facility] Comment on above: Performed By: #### D DAVIDSON, MG, PHOS, CMP, LIPID, URIC #### [facility] [address] [place] [address] Dr. Sarmad Patino METAMYELOCYTE % Normal [facility] Comment on above: Performed By: #### D DAVIDSON, MG, PHOS, CMP, LIPID, URIC #### [facility] [address] [place] [address] Dr. Sarmad Patino MONOM# 0.84 103/ul Critically high 0.30-0.80 [facility] Comment on above: Performed By: #### D DAVIDSON, MG, PHOS, CMP, LIPID, URIC #### [facility] [address] [place] [address] Dr. Sarmad Patino MONOM% 6.0 % Normal 1.7-12.0 [facility] Comment on above: Performed By: #### D DAVIDSON, MG, PHOS, CMP, LIPID, URIC #### [facility] [address] [place] [address] Dr. Sarmad Patino MPV 11.5 fL Normal 9.5-13.5 [facility] Comment on above: Performed By: #### D DAVIDSON, MG, PHOS, CMP, LIPID, URIC #### [facility] [address] [place] [address] Dr. Sarmad Patino MYELOCYTE # 0.3 103/ul Normal [facility] Comment on above: Performed By: #### D DAVIDSON, MG, PHOS, CMP, LIPID, URIC #### [facility] [address] [address] [address] Sarmad Patino MYELOCYTE % 2 % Normal [facility] Comment on above: Performed By: #### D DAVIDSON, MG, PHOS, CMP, LIPID, URIC #### [facility] [address] [address] [address] aSrmad Patino NRBC Normal [facility] Comment on above: Performed By: #### D DAVIDSON, MG, PHOS, CMP, LIPID, URIC #### [facility] [address] [address] [address] Sarmad Patino PLT 180 103/ul Normal 150-450 [facility] Comment on above: Performed By: #### D DAVIDSON, MG, PHOS, CMP, LIPID, URIC #### [facility] [address] [address] [address] Sarmad Patino RBC 4.93 106/ul Normal 4.20-5.40 [facility] Comment on above: Performed By: #### D DAVIDSON, MG, PHOS, CMP, LIPID, URIC #### [facility] [address] [address] [address] Sarmad Patino RDW 13.9 % Normal 11.0-15.0 [facility] Comment on above: Performed By: #### D DAVIDSON, MG, PHOS, CMP, LIPID, URIC #### [facility] [address] [address] [address] Sarmad Patino SEG # 10.78 103/ul Critically high 1.40-6.50 [facility] Comment on above: Performed By: #### D DAVIDSON, MG, PHOS, CMP, LIPID, URIC #### [facility] [address] [address] [address] Sarmad Patino SEG % 77.0 % Critically high 43.0-75.0 [facility] Comment on above: Performed By: #### D DAVIDSON, MG, PHOS, CMP, LIPID, URIC #### [facility] [facility] [address] [address] [address] Sarmad Patino WBC 14.0 103/ul Critically high 4.0-11.0 [facility] Comment on above: Performed By: #### D DAVIDSON, MG, PHOS, CMP, LIPID, URIC #### [facility] [address] [address] [address] NECK ST W [...] middle ear cavities clear. Skull base intact. Cable Tool Operator spaces normal. Parotid glands normal. Submandibular glands [...] F HOPPER Date: 2022-01-03 10:40 Normal [facility]on SARS-CoV-2 (COVID-19) RNA MURALI+probe Ql (Unsp spec) Detected Critically abnormal NOT DETECTED [facility] Comment on above: Result Comment: This test is not yet approved or cleared by the [place] FDA. When there are no FDA-approved or cleared tests available, and other criteria are met, FDA can make tests available under an emergency access mechanism called an Emergency Use Authorization (EUA). The EUA for this test is supported by the [place] of Health and Human Service's declaration that [...] DAVIDSON, MG, PHOS, CMP, LIPID, URIC #### [facility] [address] [place] [address] Dr. Sarmad Patino GROUP A STREP CULTUREon S. pyogenes Ag Ql (Unsp spec) Culture Observations: Negative for Group A Streptococcus Normal [facility] Comment on above: Performed By: #### U MAXI, LIPID, MG, CMP, DBIL, PHOS #### [facility] [address] [address] [address] Sarmad Patino INFLUENZA A AND B AGon 01-03 INFLUENZA A AG Negative Normal NEGATIVE SEE COMMENT [facility] Comment on above: Performed By: #### D DAVIDSON, MG, PHOS, CMP, LIPID, URIC #### [facility] [address] [place] [address] Dr. Sarmad Patino INFLUENZA B AG Negative Normal NEGATIVE SEE COMMENT [facility] Comment on above: Performed By: #### D DAVIDSON, MG, PHOS, CMP, LIPID, URIC #### [facility] [address] [address] [address] Sarmad Patino INTERNAL CONTROLS Within Normal Limits Normal Wi thin Normal Limits [facility] Comment on above: Performed By: #### D DAVIDSON, MG, PHOS, CMP, LIPID, URIC #### [facility] [address] [place] [address] Dr. Sarmad Patino PROF 14(COMP METB)on 022 Albumin [Mass/Vol] 2.5 g/dL Critically low 3.4-5.0 Th e [facility] Comment on above: Performed By: #### U MAXI, LIPID, MG, CMP, DBIL, PHOS #### [facility] [address] [place] [address] Dr. Sarmad Patino Albumin/Globulin [Mass ratio] 0.5 {ratio} Normal [facility] Comment on above: Performed By: #### U MAXI, LIPID, MG, CMP, DBIL, PHOS #### [facility] [address] [address] [address] Sarmad Patino ALP [Catalytic activity/Vol] 185 U/L Critically high 46-116 [facility] Comment on above: Performed By: #### U MAXI, LIPID, MG, CMP, DBIL, PHOS #### [facility] [address] [place] [address] Dr. Sarmad Patino ALT [Catalytic activity/Vol] 108 U/L Critically high 14-59 [facility] Comment on above: Performed By: #### U MAXI, LIPID, MG, CMP, DBIL, PHOS #### [facility] [address] [place] [address] Dr. Sarmad Patino Anion gap [Moles/Vol] 8.3 mmol/L Normal [facility] Comment on above: Performed By: #### U MAXI, LIPID, MG, CMP, DBIL, PHOS #### [facility] [address] [place] [address] Dr. Sarmad Patino AST [Catalytic activity/Vol] 59 U/L Critically high 15-37 [facility] Comment on above: Performed By: #### U MAXI, LIPID, MG, CMP, DBIL, PHOS #### [facility] [address] [place] [address] Dr. Sarmad Patino Bilirubin [Mass/Vol] 0.6 mg/dL Normal 0.2-1.0 [facility] Comment on above: Performed By: #### U MAXI, LIPID, MG, CMP, DBIL, PHOS #### [facility] [address] [place] [address] Dr. Sarmad Patino Calcium [Mass/Vol] 9.0 mg/dL Normal 8.5-10.1 [facility] Comment on above: Performed By: #### U MAXI, LIPID, MG, CMP, DBIL, PHOS #### [facility] [address] [address] [address] Sarmad Patino Chloride [Moles/Vol] 100 mmol/L Normal 98-107 [facility] Comment on above: Performed By: #### U MAXI, LIPID, MG, CMP, DBIL, PHOS #### [facility] [address] [address] [address] Sarmad Patino CO2 [Moles/Vol] 29.0 mmol/L Normal 21.0-32.0 [facility] Comment on above: Performed By: #### U MAXI, LIPID, MG, CMP, DBIL, PHOS #### [facility] [address] [address] [address] Sarmad Patino Creatinine [Mass/Vol] 1.05 mg/dL Critically high 0.55-1.02 [facility] Comment on above: Performed By: #### U MAXI, LIPID, MG, CMP, DBIL, PHOS #### [facility] [address] [address] [address] Sarmad Patino EGFR-AF NIUEAN >60 Normal >=60 [facility] Comment on above: Performed By: #### U MAXI, LIPID, MG, CMP, DBIL, PHOS #### [facility] [address] [address] [address] Sarmad Patino EGFR-NON AF NIUEAN 53 mL/min/1.73m2 Critically low >=60 [facility] Comment on above: Performed By: #### U MAXI, LIPID, MG, CMP, DBIL, PHOS #### [facility] [address] [address] [address] Sarmad Patino Globulin (S) [Mass/Vol] 4.6 g/dL Normal [facility] Comment on above: Performed By: #### U MAXI, LIPID, MG, CMP, DBIL, PHOS #### [facility] [address] [address] [address] Sarmad Patino Glucose [Mass/Vol] 154 mg/dL Critically high 74-106 [facility] Comment on above: Performed By: #### U MAXI, LIPID, MG, CMP, DBIL, PHOS #### [facility] [address] [address] [address] Sarmad Patino Potassium [Moles/Vol] 3.3 mmol/L Critically low 3.5-5.1 [facility] Comment on above: Performed By: #### U AMXI, LIPID, MG, CMP, DBIL, PHOS #### [facility] [address] [place] [address] Dr. Sarmad Patino Protein [Mass/Vol] 7.1 g/dL Normal 6.4-8.2 [facility] Comment on above: Performed By: #### U MAXI, LIPID, MG, CMP, DBIL, PHOS #### [facility] [address] [place] [address] Dr. Sarmad Patino Sodium [Moles/Vol] 134 mmol/L Critically low 136-145 [facility] Comment on above: Performed By: #### U MAXI, LIPID, MG, CMP, DBIL, PHOS #### [facility] [address] [address] [address] Sarmad Patino Urea nitrogen [Mass/Vol] 24.0 mg/dL Critically high 7.0-18.0 [facility] Comment on above: Performed By: #### U MAXI, LIPID, MG, CMP, DBIL, PHOS #### [facility] [address] [place] [address] Dr. aSrmad Patino Urea nitrogen/Creatinine [Mass ratio] 22.9 mg/mg Normal [facility] Comment on above: Performed By: #### U MAXI, LIPID, MG, CMP, DBIL, PHOS #### [facility] [address] [place] [address] Dr. Sarmad Patino STREPT SCREENon 01-03-2022 STREP SCREEN A Negative Normal NEGATIVE [facility] Comment on above: Performed By: #### U MAXI, LIPID, MG, CMP, DBIL, PHOS #### [facility] [address] [place] [address] Dr. Sarmad Patino XR CHEST 2 Von [...] MAYRA WHITESIDE Date: 2022-01-03 03:54 Normal [facility] Quick Strepon 12-28-2021 S. pyogenes Org specific cx Ql (Throat) Negative [facility] Other Quick Strep [facility] Other SARS-CoV-2 (COVID-19) RNA NA A+probe Ql (Resp)on 12-25-2021 SARS-CoV-2 (COVID-19) RNA MURALI+probe Ql (Unsp spec) Negative [facility] Other FK506 (TACROLIMUS) WHOLE BLO ODon 12-08-2021 Tacrolimus (FK506), Blood 6.6 ng/mL Normal 2.0-20.0 [facility] Comment on above: Result Comment: Trou gh (immediately following transplant) 15.0 . Trough (steady state, 2 weeks or more after transplant): 3.0 - 8.0 . Performed by LC-MS/MS technology. Performed By: #### D DAVIDSON, MG, PHOS, CMP, LIPID, URIC #### [facility] [address] [address] [address] Sarmad Patino RAPAMUNE(SIROLIMUS)on 2021 Rapamune(Sirolimus), whole blood 9.6 ng/mL Normal 3.0-20.0 [facility] Comment on above: Result Comment: Perf ormed by LC/MS-MS technology . This test was developed and its performance characteristics determined by [facility] [place]. It has not been cleared or approved by the Food and Drug Administration. Performed By: #### D DAVIDSON, MG, PHOS, CMP, LIPID, URIC #### [facility] [address] [address] [address] Sarmad Patino BILIRUBIN CONJUGATED (DIRECT )on 12-05-2021 BILI, CONJUGATED 0.1 mg/dL Normal 0.0-0.2 [facility] Comment on above: Performed By: #### D DAVIDSON, MG, PHOS, CMP, LIPID, URIC #### [facility] [address] [address] [address] Sarmad Patino CBC W MANUAL DIFFon 12-06-19 22 ATYPICAL LYMPH # Normal [facility] Comment on above: Performed By: #### D DAVIDSON, MG, PHOS, CMP, LIPID, URIC #### [facility] [address] [place] [address] Dr. Sarmad Patino ATYPICAL LYMPH % Normal [facility] Comment on above: Performed By: #### D DAVIDSON, MG, PHOS, CMP, LIPID, URIC #### [facility] [address] [address] [address] Sarmad Patino BAND # Normal 0.0-0.3 [facility] Comment on above: Performed By: #### D DAVIDSON, MG, PHOS, CMP, LIPID, URIC #### [facility] [address] [place] [address] Dr. Sarmad Patino BAND % Normal 0-5 [facility] Comment on above: Performed By: #### D DAVIDSON, MG, PHOS, CMP, LIPID, URIC #### [facility] [address] [address] [address] Sarmad Patino BASOM # 0.00 103/ul Normal 0.00-0.10 [facility] Comment on above: Performed By: #### D DAVIDSON, MG, PHOS, CMP, LIPID, URIC #### [facility] [address] [place] [address] Dr. Sarmad Patino BASOM % 0.0 % Critically low 0.2-2.0 [facility] Comment on above: Performed By: #### D DAVIDSON, MG, PHOS, CMP, LIPID, URIC #### [facility] [address] [place] [address] Dr. Sarmad Patino BLAST # Normal [facility] Comment on above: Performed By: #### D DAVIDSON, MG, PHOS, CMP, LIPID, URIC #### [facility] [address] [address] [address] Sarmad Patino BLAST % Normal [facility] Comment on above: Performed By: #### D DAVIDSON, MG, PHOS, CMP, LIPID, URIC #### [facility] [address] [address] [address] Sarmad Patino CORRECTED WBC Normal 4.0-11.0 [facility] Comment on above: Performed By: #### D DAVIDSON, MG, PHOS, CMP, LIPID, URIC #### [facility] [address] [place] [address] Dr. Sarmad Patino EOS # 0.15 103/ul Normal 0.00-0.70 [facility] Comment on above: Performed By: #### D DAVIDSON, MG, PHOS, CMP, LIPID, URIC #### [facility] [address] [place] [address] Dr. Sarmad Patino EOS% 2.0 % Normal 0.9-7.0 [facility] Comment on above: Performed By: #### D DAVIDSON, MG, PHOS, CMP, LIPID, URIC #### [facility] [address] [place] [address] Dr. Sarmad Patino HCT 47.5 % Normal 36.0-48.0 [facility] Comment on above: Performed By: #### D DAVIDSON, MG, PHOS, CMP, LIPID, URIC #### [facility] [address] [place] [address] Dr. Sarmad Patino HGB 15.6 g/dl Normal 12.0-16.0 [facility] Comment on above: Performed By: #### D DAVIDSON, MG, PHOS, CMP, LIPID, URIC #### [facility] [address] [place] [address] Dr. Sarmad Patino LYMPHM # 1.46 103/ul Normal 1.20-3.80 [facility] Comment on above: Performed By: #### D DAVIDSON, MG, PHOS, CMP, LIPID, URIC #### [facility] [address] [address] [address] Sarmad Patino LYMPHM% 19.0 % Critically low 20.5-60.0 [facility] Comment on above: Performed By: #### D DAVIDSON, MG, PHOS, CMP, LIPID, URIC #### [facility] [address] [address] [address] Sarmad Patino MCH 28.9 pg Normal 26.7-34.0 [facility] Comment on above: Performed By: #### D DAVIDSON, MG, PHOS, CMP, LIPID, URIC #### [facility] [address] [place] [address] Dr. Sarmad Patino MCHC 32.8 g/dl Normal 29.9-35.2 [facility] Comment on above: Performed By: #### D DAVIDSON, MG, PHOS, CMP, LIPID, URIC #### [facility] [address] [address] [address] Sarmad Patino MCV 88.1 fL Normal 81.0-99.0 [facility] Comment on above: Performed By: #### D DAVIDSON, MG, PHOS, CMP, LIPID, URIC #### [facility] [address] [address] [address] Sarmad Patino METAMYELOCYTE # Normal [facility] Comment on above: Performed By: #### D DAVIDSON, MG, PHOS, CMP, LIPID, URIC #### [facility] [address] [address] [address] Sarmad Patino METAMYELOCYTE % Normal [facility] Comment on above: Performed By: #### D DAVIDSON, MG, PHOS, CMP, LIPID, URIC #### [facility] [address] [address] [address] Sarmad Patino MONOM# 0.85 103/ul Critically high 0.30-0.80 [facility] Comment on above: Performed By: #### D DAVIDSON, MG, PHOS, CMP, LIPID, URIC #### [facility] [address] [address] [address] Sarmad Patino MONOM% 11.0 % Normal 1.7-12.0 [facility] Comment on above: Performed By: #### D DAVIDSON, MG, PHOS, CMP, LIPID, URIC #### [facility] [address] [address] [address] Sarmad Patino MPV 11.3 fL Normal 9.5-13.5 [facility] Comment on above: Performed By: #### D DAVIDSON, MG, PHOS, CMP, LIPID, URIC #### [facility] [address] [place] [address] Dr. Sarmad Patino MYELOCYTE # Normal [facility] Comment on above: Performed By: #### D DAVIDSON, MG, PHOS, CMP, LIPID, URIC #### [facility] [address] [place] [address] Dr. Sarmad Patino MYELOCYTE % Normal [facility] Comment on above: Performed By: #### D DAVIDSON, MG, PHOS, CMP, LIPID, URIC #### [facility] [address] [place] [address] Dr. Sarmad Patino NRBC Normal [facility] Comment on above: Performed By: #### D DAVIDSON, MG, PHOS, CMP, LIPID, URIC #### [facility] [address] [address] [address] Sarmad Patino PLT 214 103/ul Normal 150-450 [facility] Comment on above: Performed By: #### D DAVIDSON, MG, PHOS, CMP, LIPID, URIC #### [facility] [address] [address] [address] Sarmad Patino RBC 5.39 106/ul Normal 4.20-5.40 [facility] Comment on above: Performed By: #### D DAVIDSON, MG, PHOS, CMP, LIPID, URIC #### [facility] [address] [address] [address] Sarmad Patino RDW 13.8 % Normal 11.0-15.0 [facility] Comment on above: Performed By: #### D DAVIDSON, MG, PHOS, CMP, LIPID, URIC #### [facility] [address] [place] [address] Dr. Sarmad Patino SEG # 5.24 103/ul Normal 1.40-6.50 [facility] Comment on above: Performed By: #### D DAVIDSON, MG, PHOS, CMP, LIPID, URIC #### [facility] [address] [place] [address] Dr. Sarmad Patino SEG % 68.0 % Normal 43.0-75.0 [facility] Comment on above: Performed By: #### D DAVIDSON, MG, PHOS, CMP, LIPID, URIC #### [facility] [address] [place] [address] Dr. Sarmad Patino WBC 7.7 103/ul Normal 4.0-11.0 [facility] Comment on above: Performed By: #### D DAVIDSON, MG, PHOS, CMP, LIPID, URIC #### [facility] [address] [place] [address] Dr. Sarmad Patino LIPID PROFILEon 12-05-2021 CHOL-HDL RATIO NORM SEE BELOW Normal [facility] Comment on above: Result Comment: 3.3 - 4.4 LOW RISK 4.4 - 7.1 AVERAGE RISK 7.1 - 11.0 MODERATE RISK >11.0 HIGH RISK Performed By: #### D DAVIDSON, MG, PHOS, CMP, LIPID, URIC #### [facility] [address] [place] [address] Dr. Sarmad Patino Cholesterol [Mass/Vol] 170 mg/dL Normal <=200 [facility] Comment on above: Performed By: #### D DAVIDSON, MG, PHOS, CMP, LIPID, URIC #### [facility] [address] [place] [address] Dr. Sarmad Patino Cholesterol in HDL [Mass/Vol] 54 mg/dL Normal 40-60 [facility] Comment on above: Performed By: #### D DAVIDSON, MG, PHOS, CMP, LIPID, URIC #### [facility] [address] [place] [address] Dr. Sarmad Patino Cholesterol in LDL [Mass/Vol] 92.2 mg/dL Normal [facility] Comment on above: Performed By: #### D DAVIDSON, MG, PHOS, CMP, LIPID, URIC #### [facility] [address] [address] [address] Sarmad Patino Cholesterol.total/Cho lesterol in HDL [Mass ratio] 3.1 {ratio} Normal [facility] Comment on above: Performed By: #### D DAVIDSON, MG, PHOS, CMP, LIPID, URIC #### [facility] [address] [address] [address] Sarmad Patino HDL NORMAL > or = 60 mg/dl - LO W CARDIOVASCULAR RISK <40 mg/dl - HIGH CARDIOVASCULAR RISK Normal [facility] Comment on above: Performed By: #### D DAVIDSON, MG, PHOS, CMP, LIPID, URIC #### [facility] [address] [address] [address] Sarmad Patino LDL CALC NORMAL SEE BELOW Normal [facility] Comment on above: Result Comment: <100 mg/dl OPTIMAL 100 - 129 mg/dl NEAR OR ABOVE OPTIMAL 130 - 159 mg/dl BORDERLINE HIGH 160 - 189 mg/dl HIGH >190 mg/dl VERY HIGH Performed By: #### D DAVIDSON, MG, PHOS, CMP, LIPID, URIC #### [facility] [address] [address] [address] Sarmad Patino Triglyceride [Mass/Vol] 119 mg/dL Normal <=150 [facility] Comment on above: Performed By: #### D DAVIDSON, MG, PHOS, CMP, LIPID, URIC #### [facility] [address] [address] [address] Sarmad Patino VLDL CALC 23.8 mg/dL Normal [facility] Comment on above: Performed By: #### D DAVIDSON, MG, PHOS, CMP, LIPID, URIC #### [facility] [address] [address] [address] Sarmad Patino MAGNESIUMon 12-05-2021 Magnesium [Mass/Vol] 1.8 mg/dL Normal 1.8-2.4 [facility] Comment on above: Performed By: #### D DAVIDSON, MG, PHOS, CMP, LIPID, URIC #### [facility] [address] [address] [address] Sarmad Patino PHOSPHORUSon 12-05-2021 Phosphate [Mass/Vol] 3.8 mg/dL Normal 2.6-4.7 [facility] Comment on above: Performed By: #### D DAVIDSON, MG, PHOS, CMP, LIPID, URIC #### [facility] [address] [address] [address] Sarmad Patino PROF 14(COMP METB)on 022 Albumin [Mass/Vol] 3.7 g/dL Normal 3.4-5.0 [facility] Comment on above: Performed By: #### D DAVIDSON, MG, PHOS, CMP, LIPID, URIC #### [facility] [address] [place] [address] Dr. Sarmad Patino Albumin/Globulin [Mass ratio] 1.0 {ratio} Normal [facility] Comment on above: Performed By: #### D DAVIDSON, MG, PHOS, CMP, LIPID, URIC #### [facility] [address] [place] [address] Dr. Sarmad Patino ALP [Catalytic activity/Vol] 151 U/L Critically high 46-116 [facility] Comment on above: Performed By: #### D DAVIDSON, MG, PHOS, CMP, LIPID, URIC #### [facility] [address] [address] [address] Sarmad Patino ALT [Catalytic activity/Vol] 27 U/L Normal 14-59 [facility] Comment on above: Performed By: #### D DAVIDSON, MG, PHOS, CMP, LIPID, URIC #### [facility] [address] [address] [address] Sarmad Patino Anion gap [Moles/Vol] 14.5 mmol/L Normal [facility] Comment on above: Performed By: #### D DAVIDSON, MG, PHOS, CMP, LIPID, URIC #### [facility] [address] [place] [address] Dr. Sarmad Patino AST [Catalytic activity/Vol] 25 U/L Normal 15-37 [facility] Comment on above: Performed By: #### D DAVIDSON, MG, PHOS, CMP, LIPID, URIC #### [facility] [address] [address] [address] Sarmad Patino Bilirubin [Mass/Vol] 0.4 mg/dL Normal 0.2-1.0 [facility] Comment on above: Performed By: #### D DAVIDSON, MG, PHOS, CMP, LIPID, URIC #### [facility] [address] [address] [address] Sarmad Patino Calcium [Mass/Vol] 9.4 mg/dL Normal 8.5-10.1 [facility] Comment on above: Performed By: #### D DAVIDSON, MG, PHOS, CMP, LIPID, URIC #### [facility] [address] [place] [address] Dr. Sarmad Patino Chloride [Moles/Vol] 103 mmol/L Normal 98-107 [facility] Comment on above: Performed By: #### D DAVIDSON, MG, PHOS, CMP, LIPID, URIC #### [facility] [address] [place] [address] Dr. Sarmad Patino CO2 [Moles/Vol] 26.5 mmol/L Normal 21.0-32.0 [facility] Comment on above: Performed By: #### D DAVIDSON, MG, PHOS, CMP, LIPID, URIC #### [facility] [address] [place] [address] Dr. Sarmad Patino Creatinine [Mass/Vol] 0.87 mg/dL Normal 0.55-1.02 [facility] Comment on above: Performed By: #### D DAVIDSON, MG, PHOS, CMP, LIPID, URIC #### [facility] [address] [address] [address] Sarmad Patino EGFR-AF NIUEAN >60 Normal >=60 [facility] Comment on above: Performed By: #### D DAVIDSON, MG, PHOS, CMP, LIPID, URIC #### [facility] [address] [address] [address] Sarmad Patino EGFR-NON AF NIUEAN >60 Normal >=60 [facility] Comment on above: Performed By: #### D DAVIDSON, MG, PHOS, CMP, LIPID, URIC #### [facility] [address] [address] [address] Sarmad Patino Globulin (S) [Mass/Vol] 3.8 g/dL Normal [facility] Comment on above: Performed By: #### D DAVIDSON, MG, PHOS, CMP, LIPID, URIC #### [facility] [address] [address] [address] Sarmad Patino Glucose [Mass/Vol] 104 mg/dL Normal 74-106 [facility] Comment on above: Performed By: #### D DAVIDSON, MG, PHOS, CMP, LIPID, URIC #### [facility] [address] [place] [address] Dr. Sarmad Patino Potassium [Moles/Vol] 4.0 mmol/L Normal 3.5-5.1 [facility] Comment on above: Performed By: #### D DAVIDSON, MG, PHOS, CMP, LIPID, URIC #### [facility] [address] [place] [address] Dr. Sarmad Patino Protein [Mass/Vol] 7.5 g/dL Normal 6.4-8.2 [facility] Comment on above: Performed By: #### D DAVIDSON, MG, PHOS, CMP, LIPID, URIC #### [facility] [address] [place] [address] Dr. Sarmad Patino Sodium [Moles/Vol] 140 mmol/L Normal 136-145 [facility] Comment on above: Performed By: #### D DAVIDSON, MG, PHOS, CMP, LIPID, URIC #### [facility] [address] [place] [address] Dr. Sarmad Patino Urea nitrogen [Mass/Vol] 19.0 mg/dL Critically high 7.0-18.0 [facility] Comment on above: Performed By: #### D DAVIDSON, MG, PHOS, CMP, LIPID, URIC #### [facility] [address] [place] [address] Dr. Sarmad Patino Urea nitrogen/Creatinine [Mass ratio] 21.8 mg/mg Normal [facility] Comment on above: Performed By: #### D DAVIDSON, MG, PHOS, CMP, LIPID, URIC #### [facility] [address] [place] [address] Dr. Sarmad Patino URIC ACID SERUMon 12-05-2021 Urate [Mass/Vol] 5.2 mg/dL Normal 2.6-6.0 [facility] Comment on above: Performed By: #### D DAVIDSON, MG, PHOS, CMP, LIPID, URIC #### [facility] [address] [place] [address] Dr. Sarmad Patino EVEROLIMU, WHOLE BLOODon EVEROLIMUS 7.0 ng/mL Normal 3.0-8.0 [facility] Comment on above: Result Comment: Perf ormed by LC-MS/MS technology. Performed By: #### D DAVIDSON, MG, PHOS, CMP, LIPID, URIC #### [facility] [address] [place] [address] Dr. Sarmad Patino FK506 (TACROLIMUS) WHOLE BLO ODon 11-10-2021 Tacrolimus (FK506), Blood 6.4 ng/mL Normal 2.0-20.0 [facility] Comment on above: Result Comment: Trou gh (immediately following transplant) 15.0 . Trough (steady state, 2 weeks or more after transplant): 3.0 - 8.0 . Performed by LC-MS/MS technology. Performed By: #### D DAVIDSON, MG, PHOS, CMP, LIPID, URIC #### [facility] [address] [place] [address] Dr. Sarmad Patino BK VIRUS PCR QUANTon 022 BKV DNA QUANT PCR PLASMA Negative Normal Negative [facility] Comment on above: Result Comment: No B K DNA detected. . The linear range of the assay is 22 - 100,000,000 IU/mL. Performed By: #### U MAXI, LIPID, MG, CMP, DBIL, PHOS #### [facility] [address] [place] [address] Dr. Sarmad Patino Log10 BKV DNA Plasma Normal [facility] Comment on above: Performed By: #### U MAXI, LIPID, MG, CMP, DBIL, PHOS #### [facility] [address] [address] [address] Sarmad Patino BILIRUBIN CONJUGATED (DIRECT )on 11-07-2021 BILI, CONJUGATED 0.1 mg/dL Normal 0.0-0.2 [facility] Comment on above: Performed By: #### D DAVIDSON, MG, PHOS, CMP, LIPID, URIC #### [facility] [address] [place] [address] Dr. Sarmad Patino CBC AUTO DIFFon 11-07-2021 BASO # 0.0 103/ul Normal 0.0-0.1 [facility] Comment on above: Performed By: #### D DAVIDSON, MG, PHOS, CMP, LIPID, URIC #### [facility] [address] [place] [address] Dr. Sarmad Patino Basophils/100 WBC (Bld) 0.3 % Normal 0.2-2.0 [facility] Comment on above: Performed By: #### D DAVIDSON, MG, PHOS, CMP, LIPID, URIC #### [facility] [address] [place] [address] Dr. Sarmad Patino EO # 0.1 103/ul Normal 0.0-0.7 [facility] Comment on above: Performed By: #### D DAVIDSON, MG, PHOS, CMP, LIPID, URIC #### [facility] [address] [place] [address] Dr. Sarmad Patino Eosinophils/100 WBC (Bld) 2.1 % Normal 0.9-7.0 [facility] Comment on above: Performed By: #### D DAVIDSON, MG, PHOS, CMP, LIPID, URIC #### [facility] [address] [place] [address] Dr. Sarmad Patino Erythrocyte distribution width (RBC) [Ratio] 13.5 % Normal 11.0-15.0 [facility] Comment on above: Performed By: #### D DAVIDSON, MG, PHOS, CMP, LIPID, URIC #### [facility] [address] [place] [address] Dr. Sarmad Patino Hematocrit (Bld) [Volume fraction] 46.7 % Normal 36.0-48.0 [facility] Comment on above: Performed By: #### D DAVIDSON, MG, PHOS, CMP, LIPID, URIC #### [facility] [address] [place] [address] Dr. Sarmad Patino Hemoglobin (Bld) [Mass/Vol] 15.1 g/dL Normal 12.0-16.0 [facility] Comment on above: Performed By: #### D DAVIDSON, MG, PHOS, CMP, LIPID, URIC #### [facility] [address] [place] [address] Dr. Sarmad Patino IG # 0.03 10e3/ul Normal 0.00-0.03 [facility] Comment on above: Performed By: #### D DAVIDSON, MG, PHOS, CMP, LIPID, URIC #### [facility] [address] [place] [address] Dr. Sarmad Patino IG % 0.5 % Normal 0.0-0.5 [facility] Comment on above: Performed By: #### D DAVIDSON, MG, PHOS, CMP, LIPID, URIC #### [facility] [address] [place] [address] Dr. Sarmad Patino LYMPH # 1.3 103/ul Normal 1.2-3.8 [facility] Comment on above: Performed By: #### D DAVIDSON, MG, PHOS, CMP, LIPID, URIC #### [facility] [address] [place] [address] Dr. Sarmad Patino Lymphocytes/100 WBC (Bld) 19.9 % Critically low 20.5-60.0 [facility] Comment on above: Performed By: #### D DAVIDSON, MG, PHOS, CMP, LIPID, URIC #### [facility] [address] [place] [address] Dr. Sarmad Patino MANUAL DIFF REQ NO Normal [facility] Comment on above: Performed By: #### D DAVIDSON, MG, PHOS, CMP, LIPID, URIC #### [facility] [address] [place] [address] Dr. Sarmad Patino MCH (RBC) [Entitic mass] 28.6 pg Normal 26.7-34.0 [facility] Comment on above: Performed By: #### D DAVIDSON, MG, PHOS, CMP, LIPID, URIC #### [facility] [address] [place] [address] Dr. Sarmad Patino MCHC (RBC) [Mass/Vol] 32.3 g/dL Normal 29.9-35.2 [facility] Comment on above: Performed By: #### D DAVIDSON, MG, PHOS, CMP, LIPID, URIC #### [facility] [address] [place] [address] Dr. Sarmad Patino MCV (RBC) [Entitic vol] 88.4 fL Normal 81.0-99.0 [facility] Comment on above: Performed By: #### D DAVIDSON, MG, PHOS, CMP, LIPID, URIC #### [facility] [address] [place] [address] Dr. Sarmad Patino MONO # 0.8 103/ul Normal 0.3-0.8 [facility] Comment on above: Performed By: #### D DAVIDSON, MG, PHOS, CMP, LIPID, URIC #### [facility] [address] [place] [address] Dr. Sarmad Patino Monocytes/100 WBC (Bld) 12.9 % Critically high 1.7-12.0 [facility] Comment on above: Performed By: #### D DAVIDSON, MG, PHOS, CMP, LIPID, URIC #### [facility] [address] [place] [address] Dr. Sarmad Patino NEUT # 4.0 103/ul Normal 1.4-6.5 [facility] Comment on above: Performed By: #### D DAVIDSON, MG, PHOS, CMP, LIPID, URIC #### [facility] [address] [place] [address] Dr. Sarmad Patino Neutrophils/100 WBC (Bld) 64.3 % Normal 43.0-75.0 [facility] Comment on above: Performed By: #### D DAVIDSON, MG, PHOS, CMP, LIPID, URIC #### [facility] [address] [address] [address] Sarmad Patino Platelet mean volume (Bld) [Entitic vol] 11.3 fL Normal 9.5-13.5 [facility] Comment on above: Performed By: #### D DAVIDSON, MG, PHOS, CMP, LIPID, URIC #### [facility] [address] [address] [address] Sarmad Patino PLT 241 103/ul Normal 150-450 [facility] Comment on above: Performed By: #### D DAVIDSON, MG, PHOS, CMP, LIPID, URIC #### [facility] [address] [address] [address] Sarmad Patino RBC 5.28 106/ul Normal 4.20-5.40 [facility] Comment on above: Performed By: #### D DAVIDSON, MG, PHOS, CMP, LIPID, URIC #### [facility] [address] [place] [address] Dr. Sarmad Patino WBC 6.3 103/ul Normal 4.0-11.0 [facility] Comment on above: Performed By: #### D DAVIDSON, MG, PHOS, CMP, LIPID, URIC #### [facility] [address] [place] [address] Dr. Sarmad Patino GLYCOHEMOGLOBIN A1Con 2021 ADA RECOMMENDATION SEE BELOW Normal [facility] Comment on above: Result Comment: ADA RECOMMENDED LIMIT 4.0 - 6.0 ADA THERAPEUTIC TARGET < 7.0 ACTION SUGGESTED > 7.0 Performed By: #### D DAVIDSON, MG, PHOS, CMP, LIPID, URIC #### [facility] [address] [place] [address] Dr. Sarmad Patino Glucose [Mass/Vol] 120 mg/dL Normal [facility] Comment on above: Performed By: #### D DAVIDSON, MG, PHOS, CMP, LIPID, URIC #### [facility] [address] [place] [address] Dr. Sarmad Patino HbA1c (Bld) [Mass fraction] 5.8 % Normal 4.5-6.2 [facility] Comment on above: Performed By: #### D DAVIDSON, MG, PHOS, CMP, LIPID, URIC #### [facility] [address] [address] [address] Sarmad Patino LIPID PROFILEon 11-07-2021 CHOL-HDL RATIO NORM SEE BELOW Normal [facility] Comment on above: Result Comment: 3.3 - 4.4 LOW RISK 4.4 - 7.1 AVERAGE RISK 7.1 - 11.0 MODERATE RISK >11.0 HIGH RISK Performed By: #### D DAVIDSON, MG, PHOS, CMP, LIPID, URIC #### [facility] [address] [address] [address] Sarmad Patnio Cholesterol [Mass/Vol] 157 mg/dL Normal <=200 [facility] Comment on above: Performed By: #### D DAVIDSON, MG, PHOS, CMP, LIPID, URIC #### [facility] [address] [address] [address] Sarmad Patino Cholesterol in HDL [Mass/Vol] 48 mg/dL Normal 40-60 [facility] Comment on above: Performed By: #### D DAVIDSON, MG, PHOS, CMP, LIPID, URIC #### [facility] [address] [address] [address] Sarmad Patino Cholesterol in LDL [Mass/Vol] 89.6 mg/dL Normal [facility] Comment on above: Performed By: #### D DAVIDSON, MG, PHOS, CMP, LIPID, URIC #### [facility] [address] [address] [address] Sarmad Patino Cholesterol.total/Cho lesterol in HDL [Mass ratio] 3.3 {ratio} Normal [facility] Comment on above: Performed By: #### D DAVIDSON, MG, PHOS, CMP, LIPID, URIC #### [facility] [address] [address] [address] Sarmad Patino HDL NORMAL > or = 60 mg/dl - LO W CARDIOVASCULAR RISK <40 mg/dl - HIGH CARDIOVASCULAR RISK Normal [facility] Comment on above: Performed By: #### D DAVIDSON, MG, PHOS, CMP, LIPID, URIC #### [facility] [address] [address] [address] Sarmad Patino LDL CALC NORMAL SEE BELOW Normal [facility] Comment on above: Result Comment: <100 mg/dl OPTIMAL 100 - 129 mg/dl NEAR OR ABOVE OPTIMAL 130 - 159 mg/dl BORDERLINE HIGH 160 - 189 mg/dl HIGH >190 mg/dl VERY HIGH Performed By: #### D DAVIDSON, MG, PHOS, CMP, LIPID, URIC #### [facility] [address] [address] [address] Sarmad Patino Triglyceride [Mass/Vol] 97 mg/dL Normal <=150 [facility] Comment on above: Performed By: #### D DAVIDSON, MG, PHOS, CMP, LIPID, URIC #### [facility] [address] [address] [address] Sarmad Patino VLDL CALC 19.4 mg/dL Normal [facility] Comment on above: Performed By: #### D DAVIDSON, MG, PHOS, CMP, LIPID, URIC #### [facility] [address] [address] [address] Sarmad Patino MAGNESIUMon 11-07-2021 Magnesium [Mass/Vol] 1.9 mg/dL Normal 1.8-2.4 [facility] Comment on above: Performed By: #### D DAVIDSON, MG, PHOS, CMP, LIPID, URIC #### [facility] [address] [address] [address] Sarmad Patino PHOSPHORUSon 11-07-2021 Phosphate [Mass/Vol] 3.4 mg/dL Normal 2.6-4.7 [facility] Comment on above: Performed By: #### D DAVIDSON, MG, PHOS, CMP, LIPID, URIC #### [facility] [address] [address] [address] Sarmad Patino PROF 14(COMP METB)on 022 Albumin [Mass/Vol] 3.6 g/dL Normal 3.4-5.0 [facility] Comment on above: Performed By: #### D DAVIDSON, MG, PHOS, CMP, LIPID, URIC #### [facility] [address] [address] [address] Sarmad Patino Albumin/Globulin [Mass ratio] 0.9 {ratio} Normal [facility] Comment on above: Performed By: #### D DAVIDSON, MG, PHOS, CMP, LIPID, URIC #### [facility] [address] [address] [address] Sarmad Patino ALP [Catalytic activity/Vol] 158 U/L Critically high 46-116 [facility] Comment on above: Performed By: #### D DAVIDSON, MG, PHOS, CMP, LIPID, URIC #### [facility] [address] [address] [address] Sarmad Patino ALT [Catalytic activity/Vol] 23 U/L Normal 14-59 [facility] Comment on above: Performed By: #### D DAVIDSON, MG, PHOS, CMP, LIPID, URIC #### [facility] [address] [place] [address] Dr. Sarmad Patino Anion gap [Moles/Vol] 14.8 mmol/L Normal [facility] Comment on above: Performed By: #### D DAVIDSON, MG, PHOS, CMP, LIPID, URIC #### [facility] [address] [place] [address] Dr. Sarmad Patino AST [Catalytic activity/Vol] 18 U/L Normal 15-37 [facility] Comment on above: Performed By: #### D DAVIDSON, MG, PHOS, CMP, LIPID, URIC #### [facility] [address] [place] [address] Dr. Sarmad Patino Bilirubin [Mass/Vol] 0.4 mg/dL Normal 0.2-1.0 [facility] Comment on above: Performed By: #### D DAVIDSON, MG, PHOS, CMP, LIPID, URIC #### [facility] [address] [address] [address] Sarmad Patino Calcium [Mass/Vol] 9.3 mg/dL Normal 8.5-10.1 [facility] Comment on above: Performed By: #### D DAVIDSON, MG, PHOS, CMP, LIPID, URIC #### [facility] [address] [place] [address] Dr. Sarmad Patino Chloride [Moles/Vol] 105 mmol/L Normal 98-107 [facility] Comment on above: Performed By: #### D DAVIDSON, MG, PHOS, CMP, LIPID, URIC #### [facility] [address] [address] [address] Sarmad Patino CO2 [Moles/Vol] 26.1 mmol/L Normal 21.0-32.0 [facility] Comment on above: Performed By: #### D DAVIDSON, MG, PHOS, CMP, LIPID, URIC #### [facility] [address] [address] [address] Sarmad Patino Creatinine [Mass/Vol] 0.84 mg/dL Normal 0.55-1.02 [facility] Comment on above: Performed By: #### D DAVIDSON, MG, PHOS, CMP, LIPID, URIC #### [facility] [address] [place] [address] Dr. Sarmad Patino EGFR-AF NIUEAN >60 Normal >=60 [facility] Comment on above: Performed By: #### D DAVIDSON, MG, PHOS, CMP, LIPID, URIC #### [facility] [address] [place] [address] Dr. Sarmad Patino EGFR-NON AF NIUEAN >60 Normal >=60 [facility] Comment on above: Performed By: #### D DAVIDSON, MG, PHOS, CMP, LIPID, URIC #### [facility] [address] [place] [address] Dr. Sarmad Patino Globulin (S) [Mass/Vol] 3.8 g/dL Normal [facility] Comment on above: Performed By: #### D DAVIDSON, MG, PHOS, CMP, LIPID, URIC #### [facility] [address] [address] [address] Sarmad Patino Glucose [Mass/Vol] 97 mg/dL Normal 74-106 [facility] Comment on above: Performed By: #### D DAVIDSON, MG, PHOS, CMP, LIPID, URIC #### [facility] [address] [place] [address] Dr. Sarmad Patino Potassium [Moles/Vol] 3.9 mmol/L Normal 3.5-5.1 [facility] Comment on above: Performed By: #### D DAVIDSON, MG, PHOS, CMP, LIPID, URIC #### [facility] [address] [address] [address] Sarmad Patino Protein [Mass/Vol] 7.4 g/dL Normal 6.4-8.2 [facility] Comment on above: Performed By: #### D DAVIDSON, MG, PHOS, CMP, LIPID, URIC #### [facility] [address] [address] [address] Sarmad Patino Sodium [Moles/Vol] 142 mmol/L Normal 136-145 [facility] Comment on above: Performed By: #### D DAVIDSON, MG, PHOS, CMP, LIPID, URIC #### [facility] [address] [place] [address] Dr. Sarmad Patino Urea nitrogen [Mass/Vol] 21.0 mg/dL Critically high 7.0-18.0 [facility] Comment on above: Performed By: #### D DAVIDSON, MG, PHOS, CMP, LIPID, URIC #### [facility] [address] [place] [address] Dr. Sarmad Patino Urea nitrogen/Creatinine [Mass ratio] 25.0 mg/mg Normal [facility] Comment on above: Performed By: #### D DAVIDSON, MG, PHOS, CMP, LIPID, URIC #### [facility] [address] [place] [address] Dr. Sarmad Patino URIC ACID SERUMon 11-07-2021 Urate [Mass/Vol] 5.1 mg/dL Normal 2.6-6.0 [facility] Comment on above: Performed By: #### D DAVIDSON, MG, PHOS, CMP, LIPID, URIC #### [facility] [address] [place] [address] Dr. Sarmad Patino BOX TEST SENT OUTon 10-16-19 22 SENT TO REF LAB 10/15/2021 Normal [facility] Comment on above: Performed By: #### D DAVIDSON, MG, PHOS, CMP, LIPID, URIC #### [facility] [address] [place] [address] Dr. Sarmad CHRISTIEMU, WHOLE BLOODon EVEROLIMUS 6.7 ng/mL Normal 3.0-8.0 [facility] Comment on above: Result Comment: Perf ormed by LC-MS/MS technology. Performed By: #### D DAVIDSON, MG, PHOS, CMP, LIPID, URIC #### [facility] [address] [place] [address] Dr. Sarmad Patino FK506 (TACROLIMUS) WHOLE BLO ODon 10-10-2021 Tacrolimus (FK506), Blood 5.9 ng/mL Normal 2.0-20.0 [facility] Comment on above: Result Comment: Trou gh (immediately following transplant) 15.0 . Trough (steady state, 2 weeks or more after transplant): 3.0 - 8.0 . Performed by LC-MS/MS technology. Performed By: #### D DAVIDSON, MG, PHOS, CMP, LIPID, URIC #### [facility] [address] [place] [address] Dr. Sarmad Patino BILIRUBIN CONJUGATED (DIRECT )on 10-08-2021 BILI, CONJUGATED 0.1 mg/dL Normal 0.0-0.2 [facility] Comment on above: Performed By: #### U MAXI, LIPID, MG, CMP, DBIL, PHOS #### [facility] [address] [place] [address] Dr. Sarmad Patino CBC AUTO DIFFon 10-08-2021 BASO # 0.0 103/ul Normal 0.0-0.1 [facility] Comment on above: Performed By: #### D DAVIDSON, MG, PHOS, CMP, LIPID, URIC #### [facility] [address] [place] [address] Dr. Sarmad Patino Basophils/100 WBC (Bld) 0.1 % Critically low 0.2-2.0 [facility] Comment on above: Performed By: #### D DAVIDSON, MG, PHOS, CMP, LIPID, URIC #### [facility] [address] [place] [address] Dr. Sarmad Patino EO # 0.1 103/ul Normal 0.0-0.7 [facility] Comment on above: Performed By: #### D DAVIDSON, MG, PHOS, CMP, LIPID, URIC #### [facility] [address] [place] [address] Dr. Sarmad Patino Eosinophils/100 WBC (Bld) 1.4 % Normal 0.9-7.0 [facility] Comment on above: Performed By: #### D DAVIDSON, MG, PHOS, CMP, LIPID, URIC #### [facility] [address] [place] [address] Dr. Sarmad Patino Erythrocyte distribution width (RBC) [Ratio] 13.6 % Normal 11.0-15.0 [facility] Comment on above: Performed By: #### D DAVIDSON, MG, PHOS, CMP, LIPID, URIC #### [facility] [address] [place] [address] Dr. Sarmad Patino Hematocrit (Bld) [Volume fraction] 47.5 % Normal 36.0-48.0 [facility] Comment on above: Performed By: #### D DAVIDSON, MG, PHOS, CMP, LIPID, URIC #### [facility] [address] [place] [address] Dr. Sarmad Patino Hemoglobin (Bld) [Mass/Vol] 15.7 g/dL Normal 12.0-16.0 [facility] Comment on above: Performed By: #### D DAVIDSON, MG, PHOS, CMP, LIPID, URIC #### [facility] [address] [place] [address] Dr. Sarmad Patino IG # 0.04 10e3/ul Critically high 0.00-0.03 The [facility] Comment on above: Performed By: #### D DAVIDSON, MG, PHOS, CMP, LIPID, URIC #### [facility] [address] [place] [address] Dr. Sarmad Patino IG % 0.5 % Normal 0.0-0.5 [facility] Comment on above: Performed By: #### D DAVIDSON, MG, PHOS, CMP, LIPID, URIC #### [facility] [address] [place] [address] Dr. Sarmad Patino LYMPH # 1.3 103/ul Normal 1.2-3.8 [facility] Comment on above: Performed By: #### D DAVIDSON, MG, PHOS, CMP, LIPID, URIC #### [facility] [address] [place] [address] Dr. Sarmad Patino Lymphocytes/100 WBC (Bld) 15.4 % Critically low 20.5-60.0 [facility] Comment on above: Performed By: #### D DAVIDSON, MG, PHOS, CMP, LIPID, URIC #### [facility] [address] [place] [address] Dr. Sarmad Patino MANUAL DIFF REQ NO Normal [facility] Comment on above: Performed By: #### D DAVIDSON, MG, PHOS, CMP, LIPID, URIC #### [facility] [address] [place] [address] Dr. Sarmad Patino MCH (RBC) [Entitic mass] 29.1 pg Normal 26.7-34.0 [facility] Comment on above: Performed By: #### D DAVIDSON, MG, PHOS, CMP, LIPID, URIC #### [facility] [address] [place] [address] Dr. Sarmad Patino MCHC (RBC) [Mass/Vol] 33.1 g/dL Normal 29.9-35.2 [facility] Comment on above: Performed By: #### D DAVIDSON, MG, PHOS, CMP, LIPID, URIC #### [facility] [address] [place] [address] Dr. Sarmad Patino MCV (RBC) [Entitic vol] 88.0 fL Normal 81.0-99.0 [facility] Comment on above: Performed By: #### D DAVIDSON, MG, PHOS, CMP, LIPID, URIC #### [facility] [address] [place] [address] Dr. Sarmad Patino MONO # 0.9 103/ul Critically high 0.3-0.8 [facility] Comment on above: Performed By: #### D DAVIDSON, MG, PHOS, CMP, LIPID, URIC #### [facility] [address] [place] [address] Dr. Sarmad Patino Monocytes/100 WBC (Bld) 10.2 % Normal 1.7-12.0 [facility] Comment on above: Performed By: #### D DAVIDSON, MG, PHOS, CMP, LIPID, URIC #### [facility] [address] [address] [address] Sarmad Patino NEUT # 6.1 103/ul Normal 1.4-6.5 [facility] Comment on above: Performed By: #### D DAVIDSON, MG, PHOS, CMP, LIPID, URIC #### [facility] [address] [address] [address] Sarmad Patino Neutrophils/100 WBC (Bld) 72.4 % Normal 43.0-75.0 [facility] Comment on above: Performed By: #### D DAVIDSON, MG, PHOS, CMP, LIPID, URIC #### [facility] [address] [place] [address] Dr. Sarmad Patino Platelet mean volume (Bld) [Entitic vol] 11.1 fL Normal 9.5-13.5 [facility] Comment on above: Performed By: #### D DAVIDSON, MG, PHOS, CMP, LIPID, URIC #### [facility] [address] [place] [address] Dr. Sarmad Patino PLT 213 103/ul Normal 150-450 [facility] Comment on above: Performed By: #### D DAVIDSON, MG, PHOS, CMP, LIPID, URIC #### [facility] [address] [place] [address] Dr. Sarmad Patino RBC 5.40 106/ul Normal 4.20-5.40 [facility] Comment on above: Performed By: #### D DAVIDSON, MG, PHOS, CMP, LIPID, URIC #### [facility] [address] [place] [address] Dr. Sarmad Patino WBC 8.4 103/ul Normal 4.0-11.0 [facility] Comment on above: Performed By: #### D DAVIDSON, MG, PHOS, CMP, LIPID, URIC #### [facility] [address] [place] [address] Dr. Sarmad Patino LIPID PROFILEon 10-08-2021 CHOL-HDL RATIO NORM SEE BELOW Normal [facility] Comment on above: Result Comment: 3.3 - 4.4 LOW RISK 4.4 - 7.1 AVERAGE RISK 7.1 - 11.0 MODERATE RISK >11.0 HIGH RISK Performed By: #### D DAVIDSON, MG, PHOS, CMP, LIPID, URIC #### [facility] [address] [address] [address] Sarmad Patino Cholesterol [Mass/Vol] 155 mg/dL Normal <=200 [facility] Comment on above: Performed By: #### D DAVIDSON, MG, PHOS, CMP, LIPID, URIC #### [facility] [address] [address] [address] Sarmad Patino Cholesterol in HDL [Mass/Vol] 49 mg/dL Normal 40-60 [facility] Comment on above: Performed By: #### D DAVIDSON, MG, PHOS, CMP, LIPID, URIC #### [facility] [address] [place] [address] Dr. Sarmad Patino Cholesterol in LDL [Mass/Vol] 73.8 mg/dL Normal [facility] Comment on above: Performed By: #### D DAVIDSON, MG, PHOS, CMP, LIPID, URIC #### [facility] [address] [address] [address] Sarmad Patino Cholesterol.total/Cho lesterol in HDL [Mass ratio] 3.2 {ratio} Normal [facility] Comment on above: Performed By: #### D DAVIDSON, MG, PHOS, CMP, LIPID, URIC #### [facility] [address] [address] [address] Sarmad Patino HDL NORMAL > or = 60 mg/dl - LO W CARDIOVASCULAR RISK <40 mg/dl - HIGH CARDIOVASCULAR RISK Normal [facility] Comment on above: Performed By: #### D DAVIDSON, MG, PHOS, CMP, LIPID, URIC #### [facility] [address] [address] [address] Sarmad Patino LDL CALC NORMAL SEE BELOW Normal [facility] Comment on above: Result Comment: <100 mg/dl OPTIMAL 100 - 129 mg/dl NEAR OR ABOVE OPTIMAL 130 - 159 mg/dl BORDERLINE HIGH 160 - 189 mg/dl HIGH >190 mg/dl VERY HIGH Performed By: #### D DAVIDSON, MG, PHOS, CMP, LIPID, URIC #### [facility] [address] [address] [address] Sarmad Patino Triglyceride [Mass/Vol] 161 mg/dL Critically high <=150 [facility] Comment on above: Performed By: #### D DAVIDSON, MG, PHOS, CMP, LIPID, URIC #### [facility] [address] [place] [address] Dr. Sarmad Patino VLDL CALC 32.2 mg/dL Normal [facility] Comment on above: Performed By: #### D DAVIDSON, MG, PHOS, CMP, LIPID, URIC #### [facility] [address] [place] [address] Dr. Sarmad Patino MAGNESIUMon 10-08-2021 Magnesium [Mass/Vol] 1.6 mg/dL Critically low 1.8-2.4 [facility] Comment on above: Performed By: #### U MAXI, LIPID, MG, CMP, DBIL, PHOS #### [facility] [address] [place] [address] Dr. Sarmad Patino PHOSPHORUSon 10-08-2021 Phosphate [Mass/Vol] 3.5 mg/dL Normal 2.6-4.7 [facility] Comment on above: Performed By: #### U MAXI, LIPID, MG, CMP, DBIL, PHOS #### [facility] [address] [place] [address] Dr. Sarmad Patino PROF 14(COMP METB)on 022 Albumin [Mass/Vol] 3.6 g/dL Normal 3.4-5.0 [facility] Comment on above: Performed By: #### D DAVIDSON, MG, PHOS, CMP, LIPID, URIC #### [facility] [address] [place] [address] Dr. Sarmad Patino Albumin/Globulin [Mass ratio] 0.9 {ratio} Normal [facility] Comment on above: Performed By: #### D DAVIDSON, MG, PHOS, CMP, LIPID, URIC #### [facility] [address] [place] [address] Dr. Sarmad Patino ALP [Catalytic activity/Vol] 150 U/L Critically high 46-116 [facility] Comment on above: Performed By: #### D DAVIDSON, MG, PHOS, CMP, LIPID, URIC #### [facility] [address] [address] [address] Sarmad Patino ALT [Catalytic activity/Vol] 21 U/L Normal 14-59 [facility] Comment on above: Performed By: #### D DAVIDSON, MG, PHOS, CMP, LIPID, URIC #### [facility] [address] [place] [address] Dr. Sarmad Patino Anion gap [Moles/Vol] 14.0 mmol/L Normal [facility] Comment on above: Performed By: #### D DAVIDSON, MG, PHOS, CMP, LIPID, URIC #### [facility] [address] [place] [address] Dr. Sarmad Patino AST [Catalytic activity/Vol] 13 U/L Critically low 15-37 [facility] Comment on above: Performed By: #### D DAVIDSON, MG, PHOS, CMP, LIPID, URIC #### [facility] [address] [place] [address] Dr. Sarmad Patino Bilirubin [Mass/Vol] 0.5 mg/dL Normal 0.2-1.0 [facility] Comment on above: Performed By: #### D DAVIDSON, MG, PHOS, CMP, LIPID, URIC #### [facility] [address] [address] [address] Sarmad Patino Calcium [Mass/Vol] 9.8 mg/dL Normal 8.5-10.1 [facility] Comment on above: Performed By: #### D DAVIDSON, MG, PHOS, CMP, LIPID, URIC #### [facility] [address] [address] [address] Sarmad Patino Chloride [Moles/Vol] 105 mmol/L Normal 98-107 [facility] Comment on above: Performed By: #### D DAVIDSON, MG, PHOS, CMP, LIPID, URIC #### [facility] [address] [address] [address] Sarmad Patino CO2 [Moles/Vol] 25.9 mmol/L Normal 21.0-32.0 [facility] Comment on above: Performed By: #### D DAVIDSON, MG, PHOS, CMP, LIPID, URIC #### [facility] [address] [address] [address] Sarmad Patino Creatinine [Mass/Vol] 0.81 mg/dL Normal 0.55-1.02 [facility] Comment on above: Performed By: #### D DAVIDSON, MG, PHOS, CMP, LIPID, URIC #### [facility] [address] [address] [address] Sarmad Patino EGFR-AF NIUEAN >60 Normal >=60 [facility] Comment on above: Performed By: #### D DAVIDSON, MG, PHOS, CMP, LIPID, URIC #### [facility] [address] [address] [address] Sarmad Patino EGFR-NON AF NIUEAN >60 Normal >=60 [facility] Comment on above: Performed By: #### D ADVIDSON, MG, PHOS, CMP, LIPID, URIC #### [facility] [address] [address] [address] Sarmad Patino Globulin (S) [Mass/Vol] 3.8 g/dL Normal [facility] Comment on above: Performed By: #### D DAVIDSON, MG, PHOS, CMP, LIPID, URIC #### [facility] [address] [address] [address] Sarmad Patino Glucose [Mass/Vol] 101 mg/dL Normal 74-106 [facility] Comment on above: Performed By: #### D DAVIDSON, MG, PHOS, CMP, LIPID, URIC #### [facility] [address] [address] [address] Sarmad Patino Potassium [Moles/Vol] 3.9 mmol/L Normal 3.5-5.1 [facility] Comment on above: Performed By: #### D DAVIDSON, MG, PHOS, CMP, LIPID, URIC #### [facility] [address] [address] [address] Sarmad Patino Protein [Mass/Vol] 7.4 g/dL Normal 6.4-8.2 [facility] Comment on above: Performed By: #### D DAVIDSON, MG, PHOS, CMP, LIPID, URIC #### [facility] [address] [place] [address] Dr. Sarmad Patino Sodium [Moles/Vol] 141 mmol/L Normal 136-145 [facility] Comment on above: Performed By: #### D DAVIDSON, MG, PHOS, CMP, LIPID, URIC #### [facility] [address] [place] [address] Dr. Sarmad Patino Urea nitrogen [Mass/Vol] 18.0 mg/dL Normal 7.0-18.0 [facility] Comment on above: Performed By: #### D DAVIDSON, MG, PHOS, CMP, LIPID, URIC #### [facility] [address] [place] [address] Dr. Sarmad Patino Urea nitrogen/Creatinine [Mass ratio] 22.2 mg/mg Normal [facility] Comment on above: Performed By: #### D DAVIDSON, MG, PHOS, CMP, LIPID, URIC #### [facility] [address] [place] [address] Dr. Sarmad Patino URIC ACID SERUMon 10-08-2021 Urate [Mass/Vol] 4.7 mg/dL Normal 2.6-6.0 [facility] Comment on above: Performed By: #### D DAVIDSON, MG, PHOS, CMP, LIPID, URIC #### [facility] [address] [place] [address] Dr. Sarmad SALAZAROLIMU, WHOLE BLOODon EVEROLIMUS 8.0 ng/mL Normal 3.0-8.0 [facility] Comment on above: Result Comment: Perf ormed by LC-MS/MS technology. Performed By: #### U MAIX, LIPID, MG, CMP, DBIL, PHOS #### [facility] [address] [place] [address] Dr. Sarmad Patino FK506 (TACROLIMUS) WHOLE BLO ODon 09-14-2021 Tacrolimus (FK506), Blood 9.3 ng/mL Normal 2.0-20.0 [facility] Comment on above: Result Comment: Trou gh (immediately following transplant) 15.0 . Trough (steady state, 2 weeks or more after transplant): 3.0 - 8.0 . Performed by LC-MS/MS technology. Performed By: #### U MAXI, LIPID, MG, CMP, DBIL, PHOS #### [facility] [address] [place] [address] Dr. Sarmad Patino BK VIRUS PCR QUANTon 022 BKV DNA QUANT PCR PLASMA Negative Normal Negative [facility] Comment on above: Result Comment: No B K DNA detected. . The linear range of the assay is 22 - 100,000,000 IU/mL. Performed By: #### D DAVIDSON, MG, PHOS, CMP, LIPID, URIC #### [facility] [address] [place] [address] Dr. Sarmad Patino Log10 BKV DNA Plasma Normal [facility] Comment on above: Performed By: #### D DAVIDSON, MG, PHOS, CMP, LIPID, URIC #### [facility] [address] [place] [address] Dr. Sarmad Patino BILIRUBIN CONJUGATED (DIRECT )on 09-10-2021 BILI, CONJUGATED 0.1 mg/dL Normal 0.0-0.2 [facility] Comment on above: Performed By: #### D DAVIDSON, MG, PHOS, CMP, LIPID, URIC #### [facility] [address] [place] [address] Dr. Sarmad Patino CBC AUTO DIFFon 09-10-2021 BASO # 0.0 103/ul Normal 0.0-0.1 [facility] Comment on above: Performed By: #### D DAVIDSON, MG, PHOS, CMP, LIPID, URIC #### [facility] [address] [place] [address] Dr. Sarmad Patino Basophils/100 WBC (Bld) 0.1 % Critically low 0.2-2.0 [facility] Comment on above: Performed By: #### D DAVIDSON, MG, PHOS, CMP, LIPID, URIC #### [facility] [address] [place] [address] Dr. Sarmad Patino EO # 0.2 103/ul Normal 0.0-0.7 [facility] Comment on above: Performed By: #### D DAVIDSON, MG, PHOS, CMP, LIPID, URIC #### [facility] [address] [place] [address] Dr. Sarmad Patino Eosinophils/100 WBC (Bld) 2.3 % Normal 0.9-7.0 [facility] Comment on above: Performed By: #### D DAVIDSON, MG, PHOS, CMP, LIPID, URIC #### [facility] [address] [place] [address] Dr. Sarmad Patino Erythrocyte distribution width (RBC) [Ratio] 13.6 % Normal 11.0-15.0 [facility] Comment on above: Performed By: #### D DAVIDSON, MG, PHOS, CMP, LIPID, URIC #### [facility] [address] [place] [address] Dr. Sarmad Patino Hematocrit (Bld) [Volume fraction] 45.1 % Normal 36.0-48.0 [facility] Comment on above: Performed By: #### D DAVIDSON, MG, PHOS, CMP, LIPID, URIC #### [facility] [address] [place] [address] Dr. Sarmad Patino Hemoglobin (Bld) [Mass/Vol] 14.7 g/dL Normal 12.0-16.0 [facility] Comment on above: Performed By: #### D DAVIDSON, MG, PHOS, CMP, LIPID, URIC #### [facility] [address] [place] [address] Dr. Sarmad Patino IG # 0.03 10e3/ul Normal 0.00-0.03 [facility] Comment on above: Performed By: #### D DAVIDSON, MG, PHOS, CMP, LIPID, URIC #### [facility] [address] [place] [address] Dr. Sarmad Patino IG % 0.4 % Normal 0.0-0.5 [facility] Comment on above: Performed By: #### D DAVIDSON, MG, PHOS, CMP, LIPID, URIC #### [facility] [address] [place] [address] Dr. Sarmad Patino LYMPH # 1.3 103/ul Normal 1.2-3.8 [facility] Comment on above: Performed By: #### D DAVIDSON, MG, PHOS, CMP, LIPID, URIC #### [facility] [address] [place] [address] Dr. Sarmad Patino Lymphocytes/100 WBC (Bld) 18.9 % Critically low 20.5-60.0 [facility] Comment on above: Performed By: #### D DAVIDSON, MG, PHOS, CMP, LIPID, URIC #### [facility] [address] [place] [address] Dr. Sarmad Patino MANUAL DIFF REQ NO Normal [facility] Comment on above: Performed By: #### D DAVIDSON, MG, PHOS, CMP, LIPID, URIC #### [facility] [address] [place] [address] Dr. Sarmad Patino MCH (RBC) [Entitic mass] 29.0 pg Normal 26.7-34.0 [facility] Comment on above: Performed By: #### D DAVIDSON, MG, PHOS, CMP, LIPID, URIC #### [facility] [address] [place] [address] Dr. Sarmad Patino MCHC (RBC) [Mass/Vol] 32.6 g/dL Normal 29.9-35.2 [facility] Comment on above: Performed By: #### D DAVIDSON, MG, PHOS, CMP, LIPID, URIC #### [facility] [address] [place] [address] Dr. Sarmad Patino MCV (RBC) [Entitic vol] 89.0 fL Normal 81.0-99.0 [facility] Comment on above: Performed By: #### D DAVIDSON, MG, PHOS, CMP, LIPID, URIC #### [facility] [address] [place] [address] Dr. Sarmad Patino MONO # 0.8 103/ul Normal 0.3-0.8 [facility] Comment on above: Performed By: #### D DAVIDSON, MG, PHOS, CMP, LIPID, URIC #### [facility] [address] [place] [address] Dr. Sarmad Patino Monocytes/100 WBC (Bld) 11.9 % Normal 1.7-12.0 [facility] Comment on above: Performed By: #### D DAVIDSON, MG, PHOS, CMP, LIPID, URIC #### [facility] [address] [address] [address] Sarmad Patino NEUT # 4.6 103/ul Normal 1.4-6.5 [facility] Comment on above: Performed By: #### D DAVIDSON, MG, PHOS, CMP, LIPID, URIC #### [facility] [address] [address] [address] Sarmad Patino Neutrophils/100 WBC (Bld) 66.4 % Normal 43.0-75.0 [facility] Comment on above: Performed By: #### D DAVIDSON, MG, PHOS, CMP, LIPID, URIC #### [facility] [address] [address] [address] Sarmad Patino Platelet mean volume (Bld) [Entitic vol] 10.6 fL Normal 9.5-13.5 [facility] Comment on above: Performed By: #### D DAVIDSON, MG, PHOS, CMP, LIPID, URIC #### [facility] [address] [address] [address] Sarmad Patino PLT 233 103/ul Normal 150-450 [facility] Comment on above: Performed By: #### D DAVIDSON, MG, PHOS, CMP, LIPID, URIC #### [facility] [address] [address] [address] Sarmad Patino RBC 5.07 106/ul Normal 4.20-5.40 [facility] Comment on above: Performed By: #### D DAVIDSON, MG, PHOS, CMP, LIPID, URIC #### [facility] [address] [address] [address] Sarmad Patino WBC 6.9 103/ul Normal 4.0-11.0 [facility] Comment on above: Performed By: #### D DAVIDSON, MG, PHOS, CMP, LIPID, URIC #### [facility] [address] [address] [address] Sarmad Patino GLYCOHEMOGLOBIN A1Con 2021 ADA RECOMMENDATION SEE BELOW Normal [facility] Comment on above: Result Comment: ADA RECOMMENDED LIMIT 4.0 - 6.0 ADA THERAPEUTIC TARGET < 7.0 ACTION SUGGESTED > 7.0 Performed By: #### D DAVIDSON, MG, PHOS, CMP, LIPID, URIC #### [facility] [address] [address] [address] Sarmad Patino Glucose [Mass/Vol] 120 mg/dL Normal [facility] Comment on above: Performed By: #### D DAVIDSON, MG, PHOS, CMP, LIPID, URIC #### [facility] [address] [address] [address] Sarmad Patino HbA1c (Bld) [Mass fraction] 5.8 % Normal 4.5-6.2 [facility] Comment on above: Performed By: #### D DAVIDSON, MG, PHOS, CMP, LIPID, URIC #### [facility] [address] [address] [address] Sarmad Patino LIPID PROFILEon 09-10-2021 CHOL-HDL RATIO NORM SEE BELOW Normal [facility] Comment on above: Result Comment: 3.3 - 4.4 LOW RISK 4.4 - 7.1 AVERAGE RISK 7.1 - 11.0 MODERATE RISK >11.0 HIGH RISK Performed By: #### D DAVIDSON, MG, PHOS, CMP, LIPID, URIC #### [facility] [address] [address] [address] Sarmad Paitno Cholesterol [Mass/Vol] 150 mg/dL Normal <=200 [facility] Comment on above: Performed By: #### D DAVIDSON, MG, PHOS, CMP, LIPID, URIC #### [facility] [address] [address] [address] Sarmad Patino Cholesterol in HDL [Mass/Vol] 47 mg/dL Normal 40-60 [facility] Comment on above: Performed By: #### D DAVIDSON, MG, PHOS, CMP, LIPID, URIC #### [facility] [address] [address] [address] Sarmad Patino Cholesterol in LDL [Mass/Vol] 78.4 mg/dL Normal [facility] Comment on above: Performed By: #### D DAVIDSON, MG, PHOS, CMP, LIPID, URIC #### [facility] [address] [address] [address] Sarmad Patino Cholesterol.total/Cho lesterol in HDL [Mass ratio] 3.2 {ratio} Normal [facility] Comment on above: Performed By: #### D DAVIDSON, MG, PHOS, CMP, LIPID, URIC #### [facility] [address] [address] [address] Sarmad Patino HDL NORMAL > or = 60 mg/dl - LO W CARDIOVASCULAR RISK <40 mg/dl - HIGH CARDIOVASCULAR RISK Normal [facility] Comment on above: Performed By: #### D DAVIDSON, MG, PHOS, CMP, LIPID, URIC #### [facility] [address] [place] [address] Dr. Sarmad Patino LDL CALC NORMAL SEE BELOW Normal [facility] Comment on above: Result Comment: <100 mg/dl OPTIMAL 100 - 129 mg/dl NEAR OR ABOVE OPTIMAL 130 - 159 mg/dl BORDERLINE HIGH 160 - 189 mg/dl HIGH >190 mg/dl VERY HIGH Performed By: #### D DAVIDSON, MG, PHOS, CMP, LIPID, URIC #### [facility] [address] [address] [address] Sarmad Patino Triglyceride [Mass/Vol] 123 mg/dL Normal <=150 [facility] Comment on above: Performed By: #### D DAVIDSON, MG, PHOS, CMP, LIPID, URIC #### [facility] [address] [place] [address] Dr. Sarmad Patino VLDL CALC 24.6 mg/dL Normal [facility] Comment on above: Performed By: #### D DAVIDSON, MG, PHOS, CMP, LIPID, URIC #### [facility] [address] [place] [address] Dr. Sarmad Patino MAGNESIUMon 09-10-2021 Magnesium [Mass/Vol] 1.5 mg/dL Critically low 1.8-2.4 [facility] Comment on above: Performed By: #### D DAVIDSON, MG, PHOS, CMP, LIPID, URIC #### [facility] [address] [place] [address] Dr. Sarmad Patino PHOSPHORUSon 09-10-2021 Phosphate [Mass/Vol] 3.8 mg/dL Normal 2.6-4.7 [facility] Comment on above: Performed By: #### D DAVIDSON, MG, PHOS, CMP, LIPID, URIC #### [facility] [address] [place] [address] Dr. Sarmad Patino PROF 14(COMP METB)on 022 Albumin [Mass/Vol] 3.4 g/dL Normal 3.4-5.0 [facility] Comment on above: Performed By: #### D DAVIDSON, MG, PHOS, CMP, LIPID, URIC #### [facility] [address] [place] [address] Dr. Sarmad Patino Albumin/Globulin [Mass ratio] 0.9 {ratio} Normal [facility] Comment on above: Performed By: #### D DAVIDSON, MG, PHOS, CMP, LIPID, URIC #### [facility] [address] [place] [address] Dr. Sarmad Patino ALP [Catalytic activity/Vol] 143 U/L Critically high 46-116 [facility] Comment on above: Performed By: #### D DAVIDSON, MG, PHOS, CMP, LIPID, URIC #### [facility] [address] [place] [address] Dr. Sarmad Patino ALT [Catalytic activity/Vol] 19 U/L Normal 14-59 [facility] Comment on above: Performed By: #### D DAVIDSON, MG, PHOS, CMP, LIPID, URIC #### [facility] [address] [place] [address] Dr. Sarmad Patino Anion gap [Moles/Vol] 13.4 mmol/L Normal [facility] Comment on above: Performed By: #### D DAVIDSON, MG, PHOS, CMP, LIPID, URIC #### [facility] [address] [place] [address] Dr. Sarmad Patino AST [Catalytic activity/Vol] 24 U/L Normal 15-37 [facility] Comment on above: Performed By: #### D DAVIDSON, MG, PHOS, CMP, LIPID, URIC #### [facility] [address] [address] [address] Sarmad Patino Bilirubin [Mass/Vol] 0.4 mg/dL Normal 0.2-1.0 [facility] Comment on above: Performed By: #### D DAVIDSON, MG, PHOS, CMP, LIPID, URIC #### [facility] [address] [address] [address] Sarmad Patino Calcium [Mass/Vol] 9.3 mg/dL Normal 8.5-10.1 [facility] Comment on above: Performed By: #### D DAVIDSON, MG, PHOS, CMP, LIPID, URIC #### [facility] [address] [address] [address] Sarmad Patino Chloride [Moles/Vol] 106 mmol/L Normal 98-107 [facility] Comment on above: Performed By: #### D DAVIDSON, MG, PHOS, CMP, LIPID, URIC #### [facility] [address] [place] [address] Dr. Sarmad Patino CO2 [Moles/Vol] 25.5 mmol/L Normal 21.0-32.0 [facility] Comment on above: Performed By: #### D DAVIDSON, MG, PHOS, CMP, LIPID, URIC #### [facility] [address] [place] [address] Dr. Sarmad Patino Creatinine [Mass/Vol] 0.85 mg/dL Normal 0.55-1.02 [facility] Comment on above: Performed By: #### D DAVIDSON, MG, PHOS, CMP, LIPID, URIC #### [facility] [address] [place] [address] Dr. Sarmad Patino EGFR-AF NIUEAN >60 Normal >=60 [facility] Comment on above: Performed By: #### D DAVIDSON, MG, PHOS, CMP, LIPID, URIC #### [facility] [address] [place] [address] Dr. Sarmad Patino EGFR-NON AF NIUEAN >60 Normal >=60 [facility] Comment on above: Performed By: #### D DAVIDSON, MG, PHOS, CMP, LIPID, URIC #### [facility] [address] [address] [address] Sarmad Patino Globulin (S) [Mass/Vol] 3.8 g/dL Normal [facility] Comment on above: Performed By: #### D DAVIDSON, MG, PHOS, CMP, LIPID, URIC #### [facility] [address] [address] [address] Sarmad Patino Glucose [Mass/Vol] 100 mg/dL Normal 74-106 [facility] Comment on above: Performed By: #### D DAVIDSON, MG, PHOS, CMP, LIPID, URIC #### [facility] [address] [place] [address] Dr. Sarmad Patino Potassium [Moles/Vol] 3.9 mmol/L Normal 3.5-5.1 [facility] Comment on above: Performed By: #### D DAVIDSON, MG, PHOS, CMP, LIPID, URIC #### [facility] [address] [place] [address] Dr. Sarmad Patino Protein [Mass/Vol] 7.2 g/dL Normal 6.4-8.2 [facility] Comment on above: Performed By: #### D DAVIDSON, MG, PHOS, CMP, LIPID, URIC #### [facility] [address] [place] [address] Dr. Sarmad Patino Sodium [Moles/Vol] 141 mmol/L Normal 136-145 [facility] Comment on above: Performed By: #### D DAVIDSON, MG, PHOS, CMP, LIPID, URIC #### [facility] [address] [place] [address] Dr. Sarmad Patino Urea nitrogen [Mass/Vol] 16.0 mg/dL Normal 7.0-18.0 [facility] Comment on above: Performed By: #### D DAVIDSON, MG, PHOS, CMP, LIPID, URIC #### [facility] [address] [place] [address] Dr. Sarmad Patino Urea nitrogen/Creatinine [Mass ratio] 18.8 mg/mg Normal [facility] Comment on above: Performed By: #### D DAVIDSON, MG, PHOS, CMP, LIPID, URIC #### [facility] [address] [address] [address] Sarmad Patino URIC ACID SERUMon 09-10-2021 Urate [Mass/Vol] 4.8 mg/dL Normal 2.6-6.0 [facility] Comment on above: Performed By: #### D DAVIDSON, MG, PHOS, CMP, LIPID, URIC #### [facility] [id number] Sarmad Patino Urinalysis - AUTOMATEDon Appearance (U) cloudy [employer] Other Bilirubin Ql (U) Negative SMS [employer] Other Color (U) pale yellow [employer] Other Glucose Ql (U) Negative [employer] Other Hemoglobin Ql (U) moderate [employer] Other Ketones Ql (U) Negative [employer] Other Leukocyte esterase Test strip Ql (U) moderate [employer] Other Nitrite Ql (U) Negative [employer] Other pH (U) 7.0 [pH] [employer] Other Protein Ql (U) Negative [employer] Other Specific gravity (U) [Rel density] 1.010 [employer] Other Urobilinogen (U) [Mass/Vol] 0.2 mg/dL [employer] Other Urinalysis - AUTOMATED [employer] Other Urine Cultureon 08-14-2021 Urine Culture 100,000 [employer] Other Urine Culture <16 Susceptible [employer] Other Urine Culture >16 Resistant [employer] Other Urine Culture <4 Susceptible [employer] Other Urine Culture <2 [facility]ceptible [facility] Other Urine Culture <1 [facility]ceptible [facility] Other Urine Culture <0.5 Susceptible [facility] Other Urine Culture <32 Susceptible [facility] Other Urine Culture <2/38 Susceptible [employer] Other Bacteria identified Cx Nom (U) Reason for Exam Dysuria Urine ORGANISM: Klebsiella pneumoniae (O:KLEPNE) [place] Count 100,000 Aerobic SHYLA Charge (NUC86) ---- [...] RESISTANT TO ALL B-LACTAM DRUGS. PERFORMED BY: [place] [address] [address] [place] [id number] PATHOLOGIST LIBERAL [employer]S TEACHER LOVELY COLE M.D. Normal [facility] Comment on above: Performed By: #### C UU #### [facility] [address] *URINE CULTUREon 12-31-2017 Bacteria identified in Urine by Culture Clinical Report: (D) Specimen: URINE Collected: 12/31/2017 13:40 Status: Final Last Updated: 01/04/2018 12:38 ISO (Final) Diphtheroids >100,000 Cfu/Ml 2 Morphologies ISO (Final) Aerococcus urinae 50,000 - 100,000 Cfu/mL Result changed by RFISCHB on 01/04/2018 12:38. The previous result was: ISO (Prelim) Normal [facility] Comment on above: Performed By: #### 4 1000, 14991, 49807, 30459, 97337, 27502 ####[facility] CBC W/DIFFon 12-25-2017 ABS BASOPHILS 0.0 10*3/uL Normal 0.0-0.2 [facility] Comment on above: Performed By: #### 5 0103 ####[facility] ABS IMM GRANS 0.0 10*3/uL Normal 0.0-0.2 [facility] Comment on above: Performed By: #### 5 0103 ####[facility] ABS NEUTROPHILS 5.0 10*3/uL Normal 1.6-7.[address] [facility] Comment on above: Performed By: #### 5 0103 ####[facility] Basophils Auto #/vol (Bld) 0.1 % Normal 0.0-1.0 [facility] Comment on above: Performed By: #### 5 0103 ####[facility]3000 [facility].[address] Eosinophils Auto #/vol (Bld) 0.1 10*3/uL Normal 0.0-0.5 [facility] Comment on above: Performed By: #### 3 ####[facility]3000 [facility].[address] Eosinophils/100 WBC Auto (Bld) 1.6 % Normal 0.0-6.0 [facility] Comment on above: Performed By: #### 3 ####[facility] Erythrocyte distribution width Auto Ratio (RBC) 14.6 % Normal 11.5-15.0 [facility] Comment on above: Performed By: #### 102 ####[facility]3000 [facility].[address] Hematocrit Auto Volume Fraction (Bld) 44.9 % Normal 36.0-45.0 [facility] Comment on above: Performed By: #### 102 ####[facility]3000 [facility].[address] Hemoglobin mass conc (Bld) 14.9 g/dL Normal 12.0-15.0 [facility] Comment on above: Performed By: #### 3 ####[facility]3000 [facility].[address] IMMATURE GRANS 0.4 % Normal 0.0-1.0 [facility] Comment on above: Performed By: #### 3 ####[facility] Lymphocytes Auto #/vol (Bld) 1.0 10*3/uL Low 1.2-4.0 [facility] Comment on above: Performed By: #### 5 3 ####[facility]3000 [facility].[address] Lymphocytes/100 WBC Auto (Bld) 14.9 % Low 20.0-45.0 [facility] Comment on above: Performed By: #### 3 ####[facility]3000 [facility].[address] MCH Auto Entitic mass (RBC) 28.8 pg Normal 27.0-33.0 [facility] Comment on above: Performed By: #### 3 ####[facility] MCHC Auto mass conc (RBC) 33.2 g/dL Normal 32.0-35.0 [facility] Comment on above: Performed By: #### 102 ####[facility] MCV Auto Entitic volume (RBC) 86.7 fL Normal 82.0-98.0 [facility] Comment on above: Performed By: #### 102 ####[facility] Monocytes Auto #/vol (Bld) 0.7 10*3/uL Normal 0.1-1.0 [facility] Comment on above: Performed By: #### 3 ####[facility] MONOS 10.6 % Normal 5.0-12.0 [facility] Comment on above: Performed By: #### 102 ####[facility] Neutrophils/100 WBC Auto (Bld) 72.4 % High 40.0-72.0 [facility] Comment on above: Performed By: #### 102 ####[facility]3000 [facility].[address] Nucleated RBC/100 WBC Ratio (Bld) 0 % Normal 0-0 [facility] Comment on above: Performed By: #### 5 0103 ####[facility] [place] [address], [facility] PLAT CNT 203 10*3/uL Normal 150-400 [facility] Comment on above: Performed By: #### 5 010 ####[facility]3000 [facility] [place] [place] [address], [facility] RBC Auto #/vol (Bld) 5.18 10*6/uL High 3.80-5.00 [facility] Comment on above: Performed By: #### 5 0103 ####[facility]3000 [facility].[address] WBC Auto #/vol (Bld) 6.90 10*3/uL Normal 4.00-10.60 [facility] Comment on above: Performed By: #### 5 0103 ####[facility]3000 [facility].[address] COMP METABOLIC PANELon 12-25 Albumin mass conc 4.3 g/dL Normal 3.5-5.7 [facility] Comment on above: Performed By: #### 4 1000, 97889, 68822, 11416, 77832, 17869 ####[facility]3000 [facility] [place] [address], [facility] ALKALINE PHOSPH 118 IU/L High 34-104 [facility] Comment on above: Performed By: #### 4 1000, 37559, 62668, 28760, 57484, 86621 ####[facility]3000 [facility] [place] [place] [address], [facility] ALT enzyme act/vol 11 U/L Normal 7-52 [facility] Comment on above: Performed By: #### 4 1000, 92156, 95208, 66237, 93657, 62652 ####[facility] [place] [address], [facility] AST enzyme act/vol 17 U/L Normal 13-39 [facility] Comment on above: Performed By: #### 4 1000, 53070, 36508, 68987, 49564, 40110 ####[facility] [place] [address], [facility] Bilirubin mass conc 0.4 mg/dL Normal 0.3-1.0 [facility] Comment on above: Performed By: #### 4 1000, 46398, 12348, 56932, 68991, 84447 ####[facility] [place] [address], [facility] Calcium mass conc 9.8 mg/dL Normal 8.6-10.3 [facility] Comment on above: Performed By: #### 4 1000, 33162, 96395, 65126, 52130, 06101 ####[facility] [place] [address], [facility] Chloride molar conc 104 mmol/L Normal 98-107 [facility] Comment on above: Performed By: #### 4 1000, 82599, 77998, 33574, 63319, 75605 ####[facility] [place] [address], [place] CO2 molar conc 27 mmol/L Normal 21-31 [facility] Comment on above: Performed By: #### 4 1000, 37698, 24313, 55261, 79420, 10318 ####[facility] [place] [address], [place] Creatinine mass conc 0.76 mg/dL Normal 0.60-1.20 [facility] Comment on above: Performed By: #### 4 1000, 76971, 75019, 65439, 18412, 50257 ####[facility] [place] [address], [place] GFR/1.73 sq M predicted among blacks MDRD vol rate/area (S/P/Bld) mL/min/{1.73_m2} Normal >[address] [facility] Comment on above: Performed By: #### 4 1000, 76587, 87050, 25700, 08874, 99780 ####[facility] [place] [address], [place] GFR/1.73 sq M predicted among non-blacks MDRD vol rate/area (S/P/Bld) mL/min/{1.73_m2} Normal >[address] [facility] Comment on above: Performed By: #### 4 1000, 70754, 66301, 19867, 37942, 55725 ####[facility] [place] [address], [place] Glucose mass conc 94 mg/dL Normal 70-100 [facility] Comment on above: Performed By: #### 4 1000, 50791, 03161, 03700, 08928, 76343 ####[facility] [place] [address], [place] Potassium molar conc 3.9 mmol/L Normal 3.5-5.1 [facility] Comment on above: Performed By: #### 4 1000, 32953, 67234, 30213, 39968, 83575 ####[facility] [place] [address], [place] Protein mass conc 7.2 g/dL Normal 6.0-8.3 [facility] Comment on above: Performed By: #### 4 1000, 19841, 05267, 84101, 37993, 11605 ####[facility] Sodium molar conc 140 mmol/L Normal 136-145 [facility] Comment on above: Performed By: #### 4 1000, 37254, 29111, 98588, 04691, 63205 ####[facility] Urea nitrogen mass conc 15 mg/dL Normal 7-25 [facility] Comment on above: Performed By: #### 4 1000, 03256, 67621, 95061, 87906, 20123 ####[facility]3000 [facility].[address] DIRECT BILIon 12-25-2017 Bilirubin.direct mass conc 0.1 mg/dL Normal 0.0-0.2 [facility] Comment on above: Performed By: #### 4 1000, 46541, 05869, 98218, 98361, 84191 ####[facility]3000 [facility].[address] EVEROLIMUS [id number] 8 EVEROLIMUS 4.7 ng/mL Normal [facility] Comment on above: Result Comment: Ther [...] the transplantcenter.Test developed and characteristics determined by [facility]. See Compliance Statement B: [employer]/CSPerformed by [facility] [facility],[address] [place] [address] piq.[employer], Leonid Antonio MD - Lab. Director LIPID PROFILEon 12-25-2017 Cholesterol in HDL mass conc 51 mg/dL Normal 23-92 [facility] Comment on above: Result Comment: Slig ht variation in normal range could be due to gender and/or age.HDL CHOLESTEROL REFERENCE RANGE:20 years and older Cardiovascular Risk> or =60 mg/dL [id number] TO 59 mg/dL Low Risk<40 mg/dL High Risk Performed By: #### 4 5506, 45006, 15598, 07972, 05835, 53005 ####[facility]3000 [facility] [place] [address], [facility] Cholesterol in LDL mass conc 58 mg/dL Normal 0-130 [facility] Comment on above: Result Comment: LDL IS A CALCULATIONLDL IS ONLY VALID IF THE TRIG IS LESS THAN 400. Performed By: #### 4 5506, 93281, 99791, 66347, 82010, 14323 ####[facility] [place] [address], [facility] Cholesterol mass conc 122 mg/dL Normal 120-200 [facility] Comment on above: Result Comment: CHOL ESTEROL REFERENCE RANGE:20 YEARS AND OLDER CARDIOVASCULAR RISKLess than 200 mg/dl Low Hfpo189 to 239 mg/dl Borderline Qwff856 mg/dl and greater High Risk Performed By: #### 4 5506, 63533, 20810, 06117, 53546, 03850 ####[facility] [place] [address], [facility] Cholesterol.total/Cho lesterol in HDL mass ratio 2.4 {ratio} Normal .0-4.5 [facility] Comment on above: Performed By: #### 4 5506, 28993, 24352, 93859, 81441, 46030 ####[facility] NON-HDL CHOLESTEROL 71 mg/dL Normal [facility] Comment on above: Performed By: #### 4 5506, 30648, 98677, 61774, 31766, 33785 ####[facility] Triglyceride mass conc 65 mg/dL Normal 40-149 [facility] Comment on above: Result Comment: TRIG LYCERIDE REFERENCE RANGE:20 YEARS AND OLDER CARDIOVASCULAR RISKLESS THAN 150 mg/dl LOW [id number] TO 199 mg/dl BORDERLINE KCKN003 mg/dl AND GREATER HIGH RISK Performed By: #### 4 5506, 65551, 06728, 90215, 21152, 08016 ####[facility] VLDL CHOL 13 mg/dL Normal 0-40 [facility] Comment on above: Performed By: #### 4 5506, 26792, 34481, 92221, 49090, 77816 ####[facility] MAGNESIUM BLOODon 12-25-2017 Magnesium mass conc 1.8 mg/dL Low 1.9-2.7 [facility] Comment on above: Performed By: #### 4 1000, 42425, 24376, 53009, 63484, 72123 ####[facility] [place] [address], [facility] PHOSPHORUS BLOODon 8 Phosphate mass conc 3.4 mg/dL Normal 2.5-5.0 [facility] Comment on above: Performed By: #### 4 5506, 69412, 06088, 26032, 00295, 34023 ####[facility] [place] [address], [facility] TACROLIMUSon 12-25-2017 Tacrolimus mass conc (Bld) 6.4 ng/mL Normal 5.0-20.0 [facility] Comment on above: Result Comment: The [employer]GIENIST MOBILE COORDINATOR Tacrolimus assay is a delayed one-step immunoassayfor the quantitative determination of tacrolimus in human whole bloodusing the chemiluminescent microparticle immunoassay (CMIA) technologywith flexible assay protocols, referred to as Chemiflex. Performed By: #### 4 1000, 39561, 50240, 18056, 53090, 78226 ####[facility] URIC ACID BLOODon 12-25-2017 Urate mass conc 4.7 mg/dL Normal 2.3-6.6 [facility] Comment on above: Performed By: #### 4 5506, 85006, 39531, 78549, 45540, 98107 ####[place] [address] [address] CBC W/DIFFon 10-30-2017 ABS BASOPHILS 0.0 10*3/uL Normal 0.0-0.2 [facility] Comment on above: Performed By: #### 4 5747, 62372 ####[place] 5[address]30 [address] ABS IMM GRANS 0.0 10*3/uL Normal 0.0-0.2 [facility] Comment on above: Performed By: #### 4 7240, 05945 ####[place] 5[address]30 [address] ABS NEUTROPHILS 4.9 10*3/uL Normal 1.6-7.[address] [facility] Comment on above: Performed By: #### 4 8696, 57186 ####[place] [address]30 [address] Basophils Auto #/vol (Bld) 0.1 % Normal 0.0-1.0 [facility] Comment on above: Performed By: #### 4 3493, 42511 ####[facility] Eosinophils Auto #/vol (Bld) 0.1 10*3/uL Normal 0.0-0.5 [facility] Comment on above: Performed By: #### 7 7283, 59316 ####[facility]3000 [facility].[address] Eosinophils/100 WBC Auto (Bld) 1.4 % Normal 0.0-6.0 [facility] Comment on above: Performed By: #### 4 1780, 05135 ####[place] [address]30 [address] Erythrocyte distribution width Auto Ratio (RBC) 14.6 % Normal 11.5-15.0 [facility] Comment on above: Performed By: #### 7 9392, 21221 ####[address] Hematocrit Auto Volume Fraction (Bld) 46.8 % High 36.0-45.0 [facility] Comment on above: Performed By: #### 4 7535, 63106 ####[place] [address]30 [address] Hemoglobin mass conc (Bld) 15.1 g/dL High 12.0-15.0 [facility] Comment on above: Performed By: #### 1 6517, 04328 ####[facility] IMMATURE GRANS 0.4 % Normal 0.0-1.0 [facility] Comment on above: Performed By: #### 5 0407, 03875 ####[facility] Lymphocytes Auto #/vol (Bld) 1.2 10*3/uL Normal 1.2-4.0 [facility] Comment on above: Performed By: #### 4 8937, 75482 ####[facility] Lymphocytes/100 WBC Auto (Bld) 16.6 % Low 20.0-45.0 [facility] Comment on above: Performed By: #### 4 1381, 52829 ####[facility] MCH Auto Entitic mass (RBC) 29.0 pg Normal 27.0-33.0 [facility] Comment on above: Performed By: #### 4 6585, 95447 ####[facility]3000 [facility].[address] MCHC Auto mass conc (RBC) 32.3 g/dL Normal 32.0-35.0 [facility] Comment on above: Performed By: #### 4 1582, 53403 ####[facility]3000 [facility].[address] MCV Auto Entitic volume (RBC) 89.8 fL Normal 82.0-98.0 [facility] Comment on above: Performed By: #### 4 6932, 35738 ####[facility]3000 [facility].[address] Monocytes Auto #/vol (Bld) 0.8 10*3/uL Normal 0.1-1.0 [facility] Comment on above: Performed By: #### 4 2943, 74095 ####[facility]3000 [facility].[address] MONOS 11.9 % Normal 5.0-12.0 [facility] Comment on above: Performed By: #### 9 5479, 84375 ####[facility] Neutrophils/100 WBC Auto (Bld) 69.6 % Normal 40.0-72.0 [facility] Comment on above: Performed By: #### 4 6447, 40307 ####[place] [address] [facility].[address] Nucleated RBC/100 WBC Ratio (Bld) 0 % Normal 0-0 [facility] Comment on above: Performed By: #### 4 6447, 75728 ####[facility]3000 [facility].[address] PLAT CNT 200 10*3/uL Normal 150-400 [facility] Comment on above: Performed By: #### 4 6447, 32009 ####[address] RBC Auto #/vol (Bld) 5.21 10*6/uL High 3.80-5.00 [facility] Comment on above: Performed By: #### 4 3947, 82315 ####[place] [address] [facility].[address] WBC Auto #/vol (Bld) 7.04 10*3/uL Normal 4.00-10.60 [facility] Comment on above: Performed By: #### 4 6447, 40802 ####[address] COMP METABOLIC PANELon 10-30 Albumin mass conc 4.1 g/dL Normal 3.5-5.7 [facility] Comment on above: Performed By: #### 4 6447, 56273 ####[address] ALKALINE PHOSPH 114 IU/L High 34-104 [facility] Comment on above: Performed By: #### 4 6447, 09485 ####[address] [place] [address], [facility] ALT enzyme act/vol 16 U/L Normal 7-52 [facility] Comment on above: Performed By: #### 4 8086, 43250 ####[facility] [place] [address], [place] AST enzyme act/vol 18 U/L Normal 13-39 [facility] Comment on above: Performed By: #### 4 5883, 12455 ####[facility] [place] [address], [place] Bilirubin mass conc 0.4 mg/dL Normal 0.3-1.0 [facility] Comment on above: Performed By: #### 8 1551, 08107 ####[facility] [place] [address], [place] Calcium mass conc 9.7 mg/dL Normal 8.6-10.3 [facility] Comment on above: Performed By: #### 5 7252, 13008 ####[facility] [place] [address], [place] Chloride molar conc 105 mmol/L Normal 98-107 [facility] Comment on above: Performed By: #### 6 4520, 96682 ####[facility] [place] [address], [place] CO2 molar conc 28 mmol/L Normal 21-31 [facility] Comment on above: Performed By: #### 5 0711, 54454 ####[facility] [place] [address], [place] Creatinine mass conc 0.82 mg/dL Normal 0.60-1.20 [facility] Comment on above: Performed By: #### 6 6751, 27883 ####[facility] [place] [address], [place] GFR/1.73 sq M predicted among blacks MDRD vol rate/area (S/P/Bld) mL/min/{1.73_m2} Normal >[address] [facility] Comment on above: Performed By: #### 4 3602, 75106 ####[facility]3000 [facility] [place] [address], [facility] GFR/1.73 sq M predicted among non-blacks MDRD vol rate/area (S/P/Bld) mL/min/{1.73_m2} Normal >[address] [facility] Comment on above: Performed By: #### 4 2738, 86373 ####[facility] [facility] [place] [address], [facility] Glucose mass conc 90 mg/dL Normal 70-100 [facility] Comment on above: Performed By: #### 4 9146, 84542 ####[facility] [facility] [address], [facility] Potassium molar conc 4.1 mmol/L Normal 3.5-5.1 [facility] Comment on above: Performed By: #### 7 6661, 72573 ####[facility] [facility] [place] [address], [facility] Protein mass conc 6.9 g/dL Normal 6.0-8.3 [facility] Comment on above: Performed By: #### 8 4505, 65147 ####[facility] [facility] [place] [address], [facility] Sodium molar conc 138 mmol/L Normal 136-145 [facility] Comment on above: Performed By: #### 0 8023, 22625 ####[facility]3000 [facility].[place] [id number], [place] Urea nitrogen mass conc 16 mg/dL Normal 7-25 [facility] Comment on above: Performed By: #### 4 9459, 16664 ####[facility] [place] [address], [facility] DIRECT BILIon 10-30-2017 Bilirubin.direct mass conc 0.0 mg/dL Normal 0.0-0.2 [facility] Comment on above: Performed By: #### 4 5506, 64879, 74750, 49657, 27246, 01746 ####[facility] [place] [address], [facility] EVEROLIMUS [id number] 8 EVEROLIMUS 6.0 ng/mL Normal [facility] Comment on above: Result Comment: Ther [...] the transplantcenter.Test developed and characteristics determined by [facility]. See Compliance Statement B: [employer]/CSPerformed by [employer],[address] [place] [address] vcm.[employer], Leonid Antonio MD - Lab. Director LIPID PROFILEon 10-30-2017 Cholesterol in HDL mass conc 50 mg/dL Normal 23-92 [facility] Comment on above: Result Comment: Slig ht variation in normal range could be due to gender and/or age.HDL CHOLESTEROL REFERENCE RANGE:20 years and older Cardiovascular Risk> or =60 mg/dL Uejogsiiu32 TO 59 mg/dL Low Risk<40 mg/dL High Risk Performed By: #### 4 5506, 60677, 88060, 01533, 05256, 72101 ####[facility] [place] [address], [place] Cholesterol in LDL mass conc 85 mg/dL Normal 0-130 [facility] Comment on above: Result Comment: LDL IS A CALCULATIONLDL IS ONLY VALID IF THE TRIG IS LESS THAN 400. Performed By: #### [id number], [id number], 45005, 98583, 21276, [id number] ####[facility] [place] [address], [facility] Cholesterol mass conc 152 mg/dL Normal 120-200 [facility] Comment on above: Result Comment: CHOL ESTEROL REFERENCE RANGE:20 YEARS AND OLDER CARDIOVASCULAR RISKLess than 200 mg/dl Low [id number] to 239 mg/dl Borderline [id number] mg/dl and greater High Risk Performed By: #### 4 5506, 38481, 58365, 54659, 29940, 90828 ####[facility] [place] [address], [facility] Cholesterol.total/Cho lesterol in HDL mass ratio 3.0 {ratio} Normal .0-4.5 [facility] Comment on above: Performed By: #### 4 5506, 42569, 59695, 35441, 19408, 51108 ####[facility] [place] [address], [place] NON-HDL CHOLESTEROL 102 mg/dL Normal [facility] Comment on above: Performed By: #### 4 5506, 29219, 78546, 02542, 88879, 64570 ####[facility] [place] [address], [place] Triglyceride mass conc 87 mg/dL Normal 40-149 [facility] Comment on above: Result Comment: TRIG LYCERIDE REFERENCE RANGE:20 YEARS AND OLDER CARDIOVASCULAR RISKLESS THAN 150 mg/dl LOW [id number] TO 199 mg/dl BORDERLINE [id number] mg/dl AND GREATER HIGH RISK Performed By: #### 4 5506, 03043, 49445, 07552, 88305, 80037 ####[facility] [facility].[address] VLDL CHOL 17 mg/dL Normal 0-40 [facility] Comment on above: Performed By: #### 4 5506, 25364, 22161, 54506, 76019, 22613 ####[facility]3000 [facility].[address] MAGNESIUM BLOODon 10-30-2017 Magnesium mass conc 1.9 mg/dL Normal 1.9-2.7 [facility] Comment on above: Performed By: #### 4 5506, 44455, 19480, 21776, 09361, 39374 ####[facility] [facility].[address] PHOSPHORUS BLOODon 8 Phosphate mass conc 3.7 mg/dL Normal 2.5-5.0 [facility] Comment on above: Performed By: #### 4 5506, 07148, 09127, 05970, 64647, 82948 ####[facility] [facility].[address] TACROLIMUSon 10-30-2017 Tacrolimus mass conc (Bld) 7.1 ng/mL Normal 5.0-20.0 [facility] Comment on above: Result Comment: The [employer] HYGI[employer] MOBILE COORDINATOR Tacrolimus assay is a delayed one-step immunoassayfor the quantitative determination of tacrolimus in human whole bloodusing the chemiluminescent microparticle immunoassay (CMIA) technologywith flexible assay protocols, referred to as Chemiflex. Performed By: #### 9 9914 ####[facility] [facility] [place] [address], [facility] URIC ACID BLOODon 10-30-2017 Urate mass conc 4.6 mg/dL Normal 2.3-6.6 The [facility] Comment on above: Performed By: #### 4 5647, 23451 ####[address] CBC W/DIFFon 10-23-2017 ABS BASOPHILS 0.0 10*3/uL Normal 0.0-0.2 [facility] Comment on above: Performed By: #### 4 5847, 47875 ####[place] [address] [address] ABS IMM GRANS 0.1 10*3/uL Normal 0.0-0.2 [facility] Comment on above: Performed By: #### 4 1947, 22162 ####[address] ABS NEUTROPHILS 5.8 10*3/uL Normal 1.6-7.[address] [facility] Comment on above: Performed By: #### 4 7347, 55818 ####[address] Basophils Auto #/vol (Bld) 0.2 % Normal 0.0-1.0 [facility] Comment on above: Performed By: #### 4 2747, 06459 ####[address] Eosinophils Auto #/vol (Bld) 0.1 10*3/uL Normal 0.0-0.5 [facility] Comment on above: Performed By: #### 4 7747, 90226 ####[address] Eosinophils/100 WBC Auto (Bld) 0.7 % Normal 0.0-6.0 [facility] Comment on above: Performed By: #### 3 4476, 41310 ####[address] [place] [address], [place] Erythrocyte distribution width Auto Ratio (RBC) 14.6 % Normal 11.5-15.0 [facility] Comment on above: Performed By: #### 4 3047, 07726 ####[address] Hematocrit Auto Volume Fraction (Bld) 44.2 % Normal 36.0-45.0 [facility] Comment on above: Performed By: #### 4 5861, 49876 ####[address] Hemoglobin mass conc (Bld) 14.2 g/dL Normal 12.0-15.0 [facility] Comment on above: Performed By: #### 9 1040, 26774 ####[address] IMMATURE GRANS 1.4 % High 0.0-1.0 [facility] Comment on above: Performed By: #### 3 3677, 42710 ####[address] Lymphocytes Auto #/vol (Bld) 2.1 10*3/uL Normal 1.2-4.0 [facility] Comment on above: Performed By: #### 4 2196, 07527 ####[address] Lymphocytes/100 WBC Auto (Bld) 22.5 % Normal 20.0-45.0 [facility] Comment on above: Performed By: #### 4 0450, 05736 ####[place] [address] [address] MCH Auto Entitic mass (RBC) 28.5 pg Normal 27.0-33.0 [facility] Comment on above: Performed By: #### 5 1465, 06125 ####[facility]3000 [facility].[address] MCHC Auto mass conc (RBC) 32.1 g/dL Normal 32.0-35.0 [facility] Comment on above: Performed By: #### 4 0547, 49173 ####[facility]3000 [facility].[address] MCV Auto Entitic volume (RBC) 88.8 fL Normal 82.0-98.0 [facility] Comment on above: Performed By: #### 4 6447, 71818 ####[facility]3000 [facility].[address] Monocytes Auto #/vol (Bld) 1.1 10*3/uL High 0.1-1.0 [facility] Comment on above: Performed By: #### 4 0847, 61211 ####[facility] [facility].[address] MONOS 12.0 % Normal 5.0-12.0 [facility] Comment on above: Performed By: #### 4 6247, 92005 ####[facility]3000 [facility].[address] Neutrophils/100 WBC Auto (Bld) 63.2 % Normal 40.0-72.0 [facility] Comment on above: Performed By: #### 4 0747, 53928 ####[facility]3000 [facility].[address] Nucleated RBC/100 WBC Ratio (Bld) 0 % Normal 0-0 [facility] Comment on above: Performed By: #### 4 0308, 54643 ####[facility] [place] [address], [facility] PLAT CNT 241 10*3/uL Normal 150-400 The [facility] Comment on above: Performed By: #### 7 9611, 78427 ####[facility] [facility] [place] [place] [address], [facility] RBC Auto #/vol (Bld) 4.98 10*6/uL Normal 3.80-5.00 [facility] Comment on above: Performed By: #### 4 6447, 56607 ####[facility]3000 [facility] [place] [place] [address], [facility] WBC Auto #/vol (Bld) 9.14 10*3/uL Normal 4.00-10.60 [facility] Comment on above: Performed By: #### 4 6447, 68012 ####[facility]3000 [facility].[address] COMP METABOLIC PANELon 10-23 Albumin mass conc 3.8 g/dL Normal 3.5-5.7 [facility] Comment on above: Performed By: #### 4 6447, 61543 ####[facility] [facility].[address] ALKALINE PHOSPH 96 IU/L Normal 34-104 [facility] Comment on above: Performed By: #### 4 6447, 67466 ####[facility] [place] [address], [facility] ALT enzyme act/vol 15 U/L Normal 7-52 [facility] Comment on above: Performed By: #### 4 6447, 43077 ####[facility] [place] [address], [facility] AST enzyme act/vol 13 U/L Normal 13-39 The Un [facility] Comment on above: Performed By: #### 4 6447, 22654 ####[facility] [place] [address], [facility] Bilirubin mass conc 0.4 mg/dL Normal 0.3-1.0 [facility] Comment on above: Performed By: #### 4 5547, 98463 ####[facility] [id number], [facility] Calcium mass conc 9.2 mg/dL Normal 8.6-10.3 [facility] Comment on above: Performed By: #### 4 9119, 09386 ####[facility] [place] [address], [place] Chloride molar conc 102 mmol/L Normal 98-107 [facility] Comment on above: Performed By: #### 4 6206, 51680 ####[facility] [id number], [place] CO2 molar conc 29 mmol/L Normal 21-31 [facility] Comment on above: Performed By: #### 7 3588, 28280 ####[facility] [id number], [place] Creatinine mass conc 0.80 mg/dL Normal 0.60-1.20 [facility] Comment on above: Performed By: #### 8 7619, 39229 ####[facility] [id number], [place] GFR/1.73 sq M predicted among blacks MDRD vol rate/area (S/P/Bld) mL/min/{1.73_m2} Normal >[address] [facility] Comment on above: Performed By: #### 2 3639, 06977 ####[facility] [place] [address], [place] GFR/1.73 sq M predicted among non-blacks MDRD vol rate/area (S/P/Bld) mL/min/{1.73_m2} Normal >[address] [facility] Comment on above: Performed By: #### 3 2601, 91614 ####[facility]3000 [facility].[address] Glucose mass conc 85 mg/dL Normal 70-100 [facility] Comment on above: Performed By: #### 4 6447, 72368 ####[facility] [place], [place] [address].[address] Potassium molar conc 3.3 mmol/L Low 3.5-5.1 [facility] Comment on above: Performed By: #### 4 6447, 16250 ####[facility] [facility].[address] Protein mass conc 6.5 g/dL Normal 6.0-8.3 [facility] Comment on above: Performed By: #### 4 6447, 79997 ####[address] Sodium molar conc 139 mmol/L Normal 136-145 [facility] Comment on above: Performed By: #### 4 6447, 95404 ####[place] [address] [facility].[address] Urea nitrogen mass conc 18 mg/dL Normal 7-25 [facility] Comment on above: Performed By: #### 4 6447, 68797 ####[place] [address] [facility].[address] DIRECT BILIon 10-23-2017 Bilirubin.direct mass conc 0.1 mg/dL Normal 0.0-0.2 [facility] Comment on above: Performed By: #### 4 6447, 88944 ####[address] EVEROLIMUS [id number] 8 EVEROLIMUS 4.0 ng/mL Normal [facility] Comment on above: Result Comment: Ther [...] the transplantcenter.Test developed and characteristics determined by [facility]. See Compliance Statement B: [employer]/CSPerformed by [facility],[address] [place] [address] [id number] hqc.[employer], Leonid Antonio MD - Lab. Director LIPID PROFILEon 10-23-2017 Cholesterol in HDL mass conc 53 mg/dL Normal 23-92 [facility] Comment on above: Result Comment: Slig ht variation in normal range could be due to gender and/or age.HDL CHOLESTEROL REFERENCE RANGE:20 years and older Cardiovascular Risk> or =60 mg/dL [id number] TO 59 mg/dL Low Risk<40 mg/dL High Risk Performed By: #### 2 5243, 18579 ####[facility] [place] [place] [address], [facility] Cholesterol in LDL mass conc 68 mg/dL Normal 0-130 [facility] Comment on above: Result Comment: LDL IS A CALCULATIONLDL IS ONLY VALID IF THE TRIG IS LESS THAN 400. Performed By: #### 3 1773, 77703 ####[facility] [facility] [place] [address], [facility] Cholesterol mass conc 135 mg/dL Normal 120-200 [facility] Comment on above: Result Comment: CHOL ESTEROL REFERENCE RANGE:20 YEARS AND OLDER CARDIOVASCULAR RISKLess than 200 mg/dl Low Vypc214 to 239 mg/dl Borderline [id number] mg/dl and greater High Risk Performed By: #### 4 9381, 63082 ####[facility] [facility].[address] Cholesterol.total/Cho lesterol in HDL mass ratio 2.5 {ratio} Normal .0-4.5 [facility] Comment on above: Performed By: #### 4 3091, 38829 ####[facility] [facility].[address] NON-HDL CHOLESTEROL 82 mg/dL Normal [facility] Comment on above: Performed By: #### 4 2509, 59148 ####[facility] [facility].[address] Triglyceride mass conc 72 mg/dL Normal 40-149 [facility] Comment on above: Result Comment: TRIG LYCERIDE REFERENCE RANGE:20 YEARS AND OLDER CARDIOVASCULAR RISKLESS THAN 150 mg/dl LOW [id number] TO 199 mg/dl BORDERLINE [id number] mg/dl AND GREATER HIGH RISK Performed By: #### 4 6185, 88515 ####[facility] [facility].[address] VLDL CHOL 14 mg/dL Normal 0-40 [facility] Comment on above: Performed By: #### 4 9816, 94529 ####[facility] [place] [address], [facility] MAGNESIUM BLOODon 10-23-2017 Magnesium mass conc 1.8 mg/dL Low 1.9-2.7 [facility] Comment on above: Performed By: #### 4 4588, 90384 ####[facility] [facility] [place] [address], [facility] PHOSPHORUS BLOODon 8 Phosphate mass conc 3.7 mg/dL Normal 2.5-5.0 [facility] Comment on above: Performed By: #### 4 6447, 75451 ####[place] [address] [address] TACROLIMUSon 10-23-2017 Tacrolimus mass conc (Bld) 2.6 ng/mL Low 5.0-20.0 [facility] Comment on above: Result Comment: The [employer] HYGI[employer]IST MOBILE COORDINATOR Tacrolimus assay is a delayed one-step immunoassayfor the quantitative determination of tacrolimus in human whole bloodusing the chemiluminescent microparticle immunoassay (CMIA) technologywith flexible assay protocols, referred to as Chemiflex. Performed By: #### 4 6447, 77164 ####[place] [address] [address] URIC ACID BLOODon 10-23-2017 Urate mass conc 4.3 mg/dL Normal 2.3-6.6 [facility] Comment on above: Performed By: #### 4 6447, 40649 ####[address] CBC W/DIFFon 09-25-2017 ABS BASOPHILS 0.0 10*3/uL Normal 0.0-0.2 [facility] Comment on above: Performed By: #### 4 1000, 15477, 72147, 04306, 35215, 49620 ####[address] ABS IMM GRANS 0.0 10*3/uL Normal 0.0-0.2 [facility] Comment on above: Performed By: #### 4 1000, 11374, 37434, 51067, 98381, 06137 ####[address] ABS NEUTROPHILS 4.4 10*3/uL Normal 1.6-7.[address] [facility] Comment on above: Performed By: #### 4 1000, 75179, 87563, 67727, 40563, 03056 ####[facility] Basophils Auto #/vol (Bld) 0.2 % Normal 0.0-1.0 [facility] Comment on above: Performed By: #### 4 1000, 31822, 95085, 95942, 99645, 92540 ####[facility] Eosinophils Auto #/vol (Bld) 0.1 10*3/uL Normal 0.0-0.5 [facility] Comment on above: Performed By: #### 4 1000, 03991, 37057, 80699, 72697, 50776 ####[facility] Eosinophils/100 WBC Auto (Bld) 2.2 % Normal 0.0-6.0 [facility] Comment on above: Performed By: #### 4 1000, 73353, 84777, 41897, 86493, 16164 ####[facility]3000 [facility].[address] Erythrocyte distribution width Auto Ratio (RBC) 14.0 % Normal 11.5-15.0 [facility] Comment on above: Performed By: #### 4 1000, 70549, 94290, 81866, 78798, 65919 ####[facility] [facility].[address] Hematocrit Auto Volume Fraction (Bld) 44.8 % Normal 36.0-45.0 [facility] Comment on above: Performed By: #### 4 1000, 62480, 58441, 49345, 00399, 91591 ####[facility] Hemoglobin mass conc (Bld) 14.5 g/dL Normal 12.0-15.0 [facility] Comment on above: Performed By: #### 4 1000, 94177, 81045, 64098, 47962, 99667 ####[facility] IMMATURE GRANS 0.3 % Normal 0.0-1.[address] [facility] Comment on above: Performed By: #### 4 1000, 80725, 52383, 29181, 52594, 42329 ####[facility] Lymphocytes Auto #/vol (Bld) 1.1 10*3/uL Low 1.2-4.0 [facility] Comment on above: Performed By: #### 4 1000, 65154, 73867, 74265, 30801, 82997 ####[facility] Lymphocytes/100 WBC Auto (Bld) 17.0 % Low 20.0-45.0 [facility] Comment on above: Performed By: #### 4 1000, 40212, 09290, 27522, 91483, 78078 ####[facility] MCH Auto Entitic mass (RBC) 28.6 pg Normal 27.0-33.0 [facility] Comment on above: Performed By: #### 4 1000, 46616, 52928, 06563, 49685, 52828 ####[facility] MCHC Auto mass conc (RBC) 32.4 g/dL Normal 32.0-35.0 [facility] Comment on above: Performed By: #### 4 1000, 60592, 76884, 35111, 20427, 43442 ####[facility] [facility].[address] MCV Auto Entitic volume (RBC) 88.4 fL Normal 82.0-98.0 [facility] Comment on above: Performed By: #### 4 1000, 37651, 68938, 20655, 01342, 09891 ####[facility] Monocytes Auto #/vol (Bld) 0.7 10*3/uL Normal 0.1-1.0 [facility] Comment on above: Performed By: #### 4 1000, 99168, 72988, 74914, 46795, 40636 ####[facility] MONOS 11.5 % Normal 5.0-12.0 [facility] Comment on above: Performed By: #### 4 1000, 07822, 08708, 43280, 42716, 81213 ####[facility] Neutrophils/100 WBC Auto (Bld) 68.8 % Normal 40.0-72.0 [facility] Comment on above: Performed By: #### 4 1000, 71936, 10874, 22934, 86754, 46447 ####[facility]3000 [facility].[address] Nucleated RBC/100 WBC Ratio (Bld) 0 % Normal 0-0 [facility] Comment on above: Performed By: #### 4 1000, 22729, 96919, 99292, 74764, 18272 ####[facility] PLAT CNT 212 10*3/uL Normal 150-400 [facility] Comment on above: Performed By: #### 4 1000, 35184, 52114, 97790, 89971, 01534 ####[facility] RBC Auto #/vol (Bld) 5.07 10*6/uL High 3.80-5.00 [facility] Comment on above: Performed By: #### 4 1000, 28144, 40840, 82920, 18659, 20738 ####[facility] WBC Auto #/vol (Bld) 6.34 10*3/uL Normal 4.00-10.60 [facility] Comment on above: Performed By: #### 4 1000, 21164, 95630, 28136, 34046, 65920 ####[facility]3000 [facility].[address] COMP METABOLIC PANELon 09-25 Albumin mass conc 4.0 g/dL Normal 3.5-5.7 The [facility] Comment on above: Performed By: #### 4 6447, 26829 ####[facility]3000 [facility].[address] ALKALINE PHOSPH 112 IU/L High 34-104 [facility] Comment on above: Performed By: #### 4 0947, 16481 ####[facility] [facility].[address] ALT enzyme act/vol 11 U/L Normal 7-52 [facility] Comment on above: Performed By: #### 4 6447, 78402 ####[facility] [facility].[address] AST enzyme act/vol 17 U/L Normal 13-39 [facility] Comment on above: Performed By: #### 4 0252, 70393 ####[facility]3000 [facility].[address] Bilirubin mass conc 0.5 mg/dL Normal 0.3-1.0 [facility] Comment on above: Performed By: #### 4 0629, 38150 ####[facility] [place] [address], [place] Calcium mass conc 9.6 mg/dL Normal 8.6-10.3 The [facility] Comment on above: Performed By: #### 4 5072, 11299 ####[facility] [place] [address], [place] Chloride molar conc 104 mmol/L Normal 98-107 [facility] Comment on above: Performed By: #### 4 1097, 43643 ####[facility] [place] [address], [place] CO2 molar conc 28 mmol/L Normal 21-31 [facility] Comment on above: Performed By: #### 7 8183, 11400 ####[facility] [place] [address], [place] Creatinine mass conc 0.83 mg/dL Normal 0.60-1.20 [facility] Comment on above: Performed By: #### 9 5609, 56388 ####[facility] [place] [address], [place] GFR/1.73 sq M predicted among blacks MDRD vol rate/area (S/P/Bld) mL/min/{1.73_m2} Normal >[address] [facility] Comment on above: Performed By: #### 4 1977, 96082 ####[facility] [place] [address], [place] GFR/1.73 sq M predicted among non-blacks MDRD vol rate/area (S/P/Bld) mL/min/{1.73_m2} Normal >[address] [facility] Comment on above: Performed By: #### 1 0399, 50472 ####[facility] [place] [address], [place] Glucose mass conc 91 mg/dL Normal 70-100 The [facility] Comment on above: Performed By: #### 4 6447, 65466 ####[place] [address] [facility].[address] Potassium molar conc 3.9 mmol/L Normal 3.5-5.1 [facility] Comment on above: Performed By: #### 4 6447, 10540 ####[address] Protein mass conc 7.0 g/dL Normal 6.0-8.3 [facility] Comment on above: Performed By: #### 4 6447, 32463 ####[address] Sodium molar conc 140 mmol/L Normal 136-145 [facility] Comment on above: Performed By: #### 4 6447, 89589 ####[address] Urea nitrogen mass conc 15 mg/dL Normal 7-25 [facility] Comment on above: Performed By: #### 4 6447, 82814 ####[address] DIRECT BILIon 09-25-2017 Bilirubin.direct mass conc 0.1 mg/dL Normal 0.0-0.2 [facility] Comment on above: Performed By: #### 4 6447, 44360 ####[address] EVEROLIMUS [id number] 8 EVEROLIMUS 5.1 ng/mL Normal [facility] Comment on above: Result Comment: Ther [...] the transplantcenter.Test developed and characteristics determined by [facility]. See Compliance Statement B: [employer]/CSPerformed by [facility] [facility],[address] [place] [address] [id number] krc.[employer], Leonid Antonio MD - Lab. Director LIPID PROFILEon 09-25-2017 Cholesterol in HDL mass conc 48 mg/dL Normal 23-92 [facility] Comment on above: Result Comment: Slig ht variation in normal range could be due to gender and/or age.HDL CHOLESTEROL REFERENCE RANGE:20 years and older Cardiovascular Risk> or =60 mg/dL [id number] TO 59 mg/dL Low Risk<40 mg/dL High Risk Performed By: #### 7 0641, 33733 ####[facility] Cholesterol in LDL mass conc 69 mg/dL Normal 0-130 [facility] Comment on above: Result Comment: LDL IS A CALCULATIONLDL IS ONLY VALID IF THE TRIG IS LESS THAN 400. Performed By: #### 2 0725, 57846 ####[facility] Cholesterol mass conc 138 mg/dL Normal 120-200 [facility] Comment on above: Result Comment: CHOL ESTEROL REFERENCE RANGE:20 YEARS AND OLDER CARDIOVASCULAR RISKLess than 200 mg/dl Low Jiqa554 to 239 mg/dl Borderline Ymju527 mg/dl and greater High Risk Performed By: #### 4 6583, 49163 ####[facility] Cholesterol.total/Cho lesterol in HDL mass ratio 2.9 {ratio} Normal .0-4.5 [facility] Comment on above: Performed By: #### 4 7844, 31607 ####[facility]3000 [facility].[address] NON-HDL CHOLESTEROL 90 mg/dL Normal The [facility] Comment on above: Performed By: #### 4 4572, 79336 ####[facility]3000 [facility].[address] Triglyceride mass conc 103 mg/dL Normal 40-149 [facility] Comment on above: Result Comment: TRIG LYCERIDE REFERENCE RANGE:20 YEARS AND OLDER CARDIOVASCULAR RISKLESS THAN 150 mg/dl LOW [id number] TO 199 mg/dl BORDERLINE [id number] mg/dl AND GREATER HIGH RISK Performed By: #### 4 6583, 47981 ####[facility] VLDL CHOL 21 mg/dL Normal 0-40 [facility] Comment on above: Performed By: #### 4 8523, 03221 ####[facility]3000 [facility].[address] MAGNESIUM BLOODon 09-25-2017 Magnesium mass conc 1.8 mg/dL Low 1.9-2.7 [facility] Comment on above: Performed By: #### 4 6941, 57435 ####[facility]3000 [facility].[address] PHOSPHORUS BLOODon 8 Phosphate mass conc 3.4 mg/dL Normal 2.5-5.0 [facility] Comment on above: Performed By: #### 4 9675, 88328 ####[facility]3000 [facility].[address] TACROLIMUSon 09-25-2017 Tacrolimus mass conc (Bld) 3.6 ng/mL Low 5.0-20.0 [facility] Comment on above: Result Comment: The [employer] HYGI[employer] MOBILE COORDINATOR Tacrolimus assay is a delayed one-step immunoassayfor the quantitative determination of tacrolimus in human whole bloodusing the chemiluminescent microparticle immunoassay (CMIA) technologywith flexible assay protocols, referred to as Chemiflex. Performed By: #### 4 6447, 10862 ####[facility] URIC ACID BLOODon 09-25-2017 Urate mass conc 4.7 mg/dL Normal 2.3-6.6 [facility] Comment on above: Performed By: #### 4 6447, 54889 ####[address] BK VIRUS QUANTITATION PCR BL OODon 08-26-2017 BKV QUANT PCR Not detected Normal The [facility] Comment on above: Result Comment: Meth od: BK virus was measured by quantitative polymerase chain reactionusing a TaqMan probe targeting the polyomavirus BK EXERCISE RIDER-1 gene.The lower limit of quantitation of the assay is 500 copies of BK genomeper milliliter of plasma or urine, and any detectable BK DNA below thatlevel is reported as: Detected, <500 copies/ml. Serial BK virusmeasurement can be used to monitor disease activity. (Reference:Kelsie vaughanl. J CLIN MICRO 2004; 42:9902-4795).This test was developed and its performance characteristics determinedby the [facility]. It has not been approvedby the US Food and Drug Administration. However, such approval is notrequired for clinical implementation, and test results have been shownto be clinically useful. This laboratory is CAP accredited and CLIAcertified to perform high complexity testing. Performed By: #### 4 1000, 98385, 83844, 73528, 05566, 44942 ####[place] [id number] [address] LOG 10 COPIES Not detected Normal The [facility] Comment on above: Performed By: #### 4 1000, 46062, 03729, 93684, 58448, 69063 ####[facility]3000 [facility].[address] CBC W/DIFFon 08-26-2017 ABS BASOPHILS 0.0 10*3/uL Normal 0.0-0.2 [facility] Comment on above: Performed By: #### 4 1000, 78664, 90771, 77927, 32159, 22912 ####[facility]3000 [facility].[address] ABS IMM GRANS 0.0 10*3/uL Normal 0.0-0.2 [facility] Comment on above: Performed By: #### 4 1000, 08061, 63708, 86379, 89175, 54434 ####[facility]3000 [facility].[address] ABS NEUTROPHILS 4.5 10*3/uL Normal 1.6-7.[address] [facility] Comment on above: Performed By: #### 4 1000, 71448, 28788, 47372, 21800, 69367 ####[facility]3000 [facility].[address] Basophils Auto #/vol (Bld) 0.2 % Normal 0.0-1.0 [facility] Comment on above: Performed By: #### 4 1000, 39612, 07718, 69748, 64821, 11400 ####[facility]3000 [facility].[address] Eosinophils Auto #/vol (Bld) 0.2 10*3/uL Normal 0.0-0.5 [facility] Comment on above: Performed By: #### 4 1000, 06735, 61286, 61425, 35045, 69001 ####[facility]3000 [facility].[address] Eosinophils/100 WBC Auto (Bld) 2.4 % Normal 0.0-6.0 [facility] Comment on above: Performed By: #### 4 1000, 53722, 75452, 60617, 02620, 02846 ####[place] [address] [facility].[address] Erythrocyte distribution width Auto Ratio (RBC) 14.0 % Normal 11.5-15.0 [facility] Comment on above: Performed By: #### 4 1000, 99263, 99632, 10164, 44923, 52410 ####[place] [address] [facility].[address] Hematocrit Auto Volume Fraction (Bld) 44.9 % Normal 36.0-45.0 [facility] Comment on above: Performed By: #### 4 1000, 93589, 29982, 61122, 24490, 51710 ####[place] [address] [facility].[address] Hemoglobin mass conc (Bld) 14.9 g/dL Normal 12.0-15.0 [facility] Comment on above: Performed By: #### 4 1000, 56625, 05222, 77291, 69668, 97284 ####[address] IMMATURE GRANS 0.5 % Normal 0.0-1.0 [facility] Comment on above: Performed By: #### 4 1000, 35056, 56605, 77797, 59340, 24903 ####[place] [address] [facility].[address] Lymphocytes Auto #/vol (Bld) 1.0 10*3/uL Low 1.2-4.0 [facility] Comment on above: Performed By: #### 4 1000, 93298, 69983, 18419, 45100, 54512 ####[facility]3000 [facility].[address] Lymphocytes/100 WBC Auto (Bld) 15.8 % Low 20.0-45.0 [facility] Comment on above: Performed By: #### 4 1000, 80092, 80540, 43932, 36317, 51383 ####[facility]3000 [facility].[address] MCH Auto Entitic mass (RBC) 29.1 pg Normal 27.0-33.0 [facility] Comment on above: Performed By: #### 4 1000, 40756, 42057, 56658, 26140, 79269 ####[facility]3000 [facility].[address] MCHC Auto mass conc (RBC) 33.2 g/dL Normal 32.0-35.0 [facility] Comment on above: Performed By: #### 4 1000, 94388, 07555, 79599, 11208, 90046 ####[facility]3000 [facility].[address] MCV Auto Entitic volume (RBC) 87.7 fL Normal 82.0-98.0 [facility] Comment on above: Performed By: #### 4 1000, 81439, 13323, 64690, 59982, 11048 ####[facility]3000 [facility].[address] Monocytes Auto #/vol (Bld) 0.7 10*3/uL Normal 0.1-1.0 [facility] Comment on above: Performed By: #### 4 1000, 72923, 15680, 32003, 70676, 53696 ####[facility]3000 [facility].[address] MONOS 10.6 % Normal 5.0-12.0 [facility] Comment on above: Performed By: #### 4 1000, 78162, 24933, 45634, 42035, 11435 ####[facility] Neutrophils/100 WBC Auto (Bld) 70.5 % Normal 40.0-72.0 [facility] Comment on above: Performed By: #### 4 1000, 08329, 77262, 19246, 45443, 43593 ####[facility] Nucleated RBC/100 WBC Ratio (Bld) 0 % Normal 0-0 [facility] Comment on above: Performed By: #### 4 1000, 54609, 38123, 30588, 95439, 39634 ####[facility] PLAT CNT 231 10*3/uL Normal 150-400 The [facility] Comment on above: Performed By: #### 4 1000, 05880, 94181, 39571, 78305, 75844 ####[facility] RBC Auto #/vol (Bld) 5.12 10*6/uL High 3.80-5.00 [facility] Comment on above: Performed By: #### 4 1000, 88096, 48146, 01375, 13659, 55920 ####[facility] WBC Auto #/vol (Bld) 6.32 10*3/uL Normal 4.00-10.60 [facility] Comment on above: Performed By: #### 4 1000, 74233, 60733, 32483, 70955, 76702 ####[facility] COMP METABOLIC PANELon 08-26 Albumin mass conc 4.3 g/dL Normal 3.5-5.7 [facility] Comment on above: Performed By: #### 4 1000, 97297, 54614, 97916, 42685, 38720 ####[facility] [place] [address], [facility] ALKALINE PHOSPH 125 IU/L High 34-104 The [facility] Comment on above: Performed By: #### 4 1000, 99713, 69862, 11035, 80472, 31371 ####[facility] [place] [address], [facility] ALT enzyme act/vol 17 U/L Normal 7-52 [facility] Comment on above: Performed By: #### 4 1000, 20921, 96385, 06824, 06451, 50468 ####[facility] [place] [address], [facility] AST enzyme act/vol 23 U/L Normal 13-39 [facility] Comment on above: Performed By: #### 4 1000, 69022, 49966, 11789, 49923, 15131 ####[facility] [place] [address], [facility] Bilirubin mass conc 0.4 mg/dL Normal 0.3-1.0 [facility] Comment on above: Performed By: #### 4 1000, 30959, 95731, 13327, 69013, 05969 ####[facility] [place] [address], [facility] Calcium mass conc 9.6 mg/dL Normal 8.6-10.3 [facility] Comment on above: Performed By: #### 4 1000, 94813, 10610, 67513, 84969, 77243 ####[facility] [place] [address], [facility] Chloride molar conc 104 mmol/L Normal 98-107 [facility] Comment on above: Performed By: #### 4 1000, 81643, 10768, 81755, 88512, 95643 ####[facility] [place] [address], [facility] CO2 molar conc 27 mmol/L Normal 21-31 [facility] Comment on above: Performed By: #### 4 1000, 92704, 55847, 03054, 85383, 94626 ####[facility] [place] [address], [facility] Creatinine mass conc 0.77 mg/dL Normal 0.60-1.20 [facility] Comment on above: Performed By: #### 4 1000, 92646, 46889, 90200, 34771, 70745 ####[facility] [place] [address], [facility] GFR/1.73 sq M predicted among blacks MDRD vol rate/area (S/P/Bld) mL/min/{1.73_m2} Normal >[address] [facility] Comment on above: Performed By: #### 4 1000, 33927, 63205, 65563, 17806, 25257 ####[facility]3000 [facility] [place] [address], [facility] GFR/1.73 sq M predicted among non-blacks MDRD vol rate/area (S/P/Bld) mL/min/{1.73_m2} Normal >[address] [facility] Comment on above: Performed By: #### 4 1000, 01045, 25184, 86744, 56946, 73101 ####[facility] [place] [address], [facility] Glucose mass conc 95 mg/dL Normal 70-100 [facility] Comment on above: Performed By: #### 4 1000, 76437, 88643, 90101, 63324, 44208 ####[facility] Potassium molar conc 4.1 mmol/L Normal 3.5-5.1 [facility] Comment on above: Performed By: #### 4 1000, 49404, 35601, 37170, 75464, 46154 ####[facility] Protein mass conc 7.3 g/dL Normal 6.0-8.3 [facility] Comment on above: Performed By: #### 4 1000, 24891, 94948, 61638, 78619, 59542 ####[facility] Sodium molar conc 139 mmol/L Normal 136-145 [facility] Comment on above: Performed By: #### 4 1000, 16216, 92839, 60987, 88788, 54010 ####[facility] Urea nitrogen mass conc 12 mg/dL Normal 7-25 [facility] Comment on above: Performed By: #### 4 1000, 58815, 11998, 06064, 93225, 95110 ####[facility] DIRECT BILIon 08-26-2017 Bilirubin.direct mass conc 0.1 mg/dL Normal 0.0-0.2 [facility] Comment on above: Performed By: #### 4 1000, 58463, 69202, 92345, 97112, 45038 ####[facility] EVEROLIMUS 17013mn 8 EVEROLIMUS 5.6 ng/mL Normal [facility] Comment on above: Result Comment: Ther [...] the transplantcenter.Test developed and characteristics determined by [facility]. See Compliance Statement B: [employer]/CSPerformed by [facility],[address] [place] [address] yey.[employer], Leonid Antonio MD - Lab. Director HEMOGLOBIN A1Con 08-26-2017 Glucose mass conc 114 mg/dL Normal 70-126 [facility] Comment on above: Performed By: #### 4 1000, 07706, 49387, 05866, 44632, 96308 ####[facility]3000 [facility].[address] Hemoglobin A1c/Hemoglobin.total mass fraction (Bld) 5.6 % Normal 4.0-6.0 The [facility] Comment on above: Performed By: #### 4 1000, 79586, 57564, 17610, 71426, 30756 ####[facility]3000 [facility].[address] LIPID PROFILEon 08-26-2017 Cholesterol in HDL mass conc 49 mg/dL Normal 23-92 [facility] Comment on above: Result Comment: Slig ht variation in normal range could be due to gender and/or age.HDL CHOLESTEROL REFERENCE RANGE:20 years and older Cardiovascular Risk> or =60 mg/dL [id number] TO 59 mg/dL Low Risk<40 mg/dL High Risk Performed By: #### 4 1000, 25972, 06952, 04600, 64604, 73109 ####[facility]3000 [facility] [place] [address], [facility] Cholesterol in LDL mass conc 76 mg/dL Normal 0-130 [facility] Comment on above: Result Comment: LDL IS A CALCULATIONLDL IS ONLY VALID IF THE TRIG IS LESS THAN 400. Performed By: #### 4 1000, 42798, 66014, 83223, 27411, 13478 ####[facility] [facility] [place] [address], [facility] Cholesterol mass conc 152 mg/dL Normal 120-200 [facility] Comment on above: Result Comment: CHOL ESTEROL REFERENCE RANGE:20 YEARS AND OLDER CARDIOVASCULAR RISKLess than 200 mg/dl Low Yyim602 to 239 mg/dl Borderline Bcit098 mg/dl and greater High Risk Performed By: #### 4 1000, 28433, 70834, 44041, 97844, 10491 ####[facility] [facility] [place] [address], [facility] Cholesterol.total/Cho lesterol in HDL mass ratio 3.1 {ratio} Normal .0-4.5 [facility] Comment on above: Performed By: #### 4 1000, 88207, 03676, 48102, 24143, 27906 ####[facility] [facility] [place] [address], [facility] NON-HDL CHOLESTEROL 103 mg/dL Normal [facility] Comment on above: Performed By: #### 4 1000, 50002, 82680, 47880, 67653, 80695 ####[facility]3000 [facility] [place] [address], [facility] Triglyceride mass conc 133 mg/dL Normal 40-149 [facility] Comment on above: Result Comment: TRIG LYCERIDE REFERENCE RANGE:20 YEARS AND OLDER CARDIOVASCULAR RISKLESS THAN 150 mg/dl LOW [id number] TO 199 mg/dl BORDERLINE HOUU046 mg/dl AND GREATER HIGH RISK Performed By: #### 4 1000, 50948, 76876, 29816, 88867, 59345 ####[facility] VLDL CHOL 27 mg/dL Normal 0-40 [facility] Comment on above: Performed By: #### 4 1000, 45076, 22771, 71140, 53842, 00945 ####[facility]3000 [facility].[address] MAGNESIUM BLOODon 08-26-2017 Magnesium mass conc 1.9 mg/dL Normal 1.9-2.7 [facility] Comment on above: Performed By: #### 4 1000, 50836, 86742, 84674, 70956, 46242 ####[facility]3000 [facility].[address] PHOSPHORUS BLOODon 8 Phosphate mass conc 3.4 mg/dL Normal 2.5-5.0 [facility] Comment on above: Performed By: #### 4 1000, 43156, 41142, 06726, 91294, 62378 ####[facility]3000 [facility].[address] TACROLIMUSon 08-26-2017 Tacrolimus mass conc (Bld) 4.3 ng/mL Low 5.0-20.0 [facility] Comment on above: Result Comment: The [employer] HYGI[employer]IST MOBILE COORDINATOR Tacrolimus assay is a delayed one-step immunoassayfor the quantitative determination of tacrolimus in human whole bloodusing the chemiluminescent microparticle immunoassay (CMIA) technologywith flexible assay protocols, referred to as Chemiflex. Performed By: #### 4 1000, 11723, 02012, 38810, 00460, 50824 ####[facility]3000 [facility].[address] URIC ACID BLOODon 08-26-2017 Urate mass conc 4.6 mg/dL Normal 2.3-6.6 [facility] Comment on above: Performed By: #### 4 1000, 36624, 67185, 66474, 71624, 26434 ####[facility]3000 [facility].[address] CBC W/DIFFon 07-23-2017 ABS BASOPHILS 0.0 10*3/uL Normal 0.0-0.2 [facility] Comment on above: Performed By: #### 4 1000, 06179, 20910, 17879, 42623, 83065 ####[facility]3000 [facility].[address] ABS IMM GRANS 0.0 10*3/uL Normal 0.0-0.2 [facility] Comment on above: Performed By: #### 4 1000, 73704, 88877, 66997, 22505, 18064 ####[facility]3000 [facility].[address] ABS NEUTROPHILS 4.4 10*3/uL Normal 1.6-7.[address] [facility] Comment on above: Performed By: #### 4 1000, 32374, 17582, 54870, 21033, 27138 ####[facility]3000 [facility].[address] Basophils Auto #/vol (Bld) 0.2 % Normal 0.0-1.0 [facility] Comment on above: Performed By: #### 4 1000, 44379, 62856, 81173, 09364, 04920 ####[facility]3000 [facility].[address] Eosinophils Auto #/vol (Bld) 0.1 10*3/uL Normal 0.0-0.5 [facility] Comment on above: Performed By: #### 4 1000, 42838, 41945, 25130, 60179, 33804 ####[facility]3000 [facility].[address] Eosinophils/100 WBC Auto (Bld) 2.1 % Normal 0.0-6.0 [facility] Comment on above: Performed By: #### 4 1000, 96879, 39094, 01925, 70952, 32929 ####[facility] Erythrocyte distribution width Auto Ratio (RBC) 13.7 % Normal 11.5-15.0 [facility] Comment on above: Performed By: #### 4 1000, 52410, 43206, 26749, 55616, 50742 ####[facility] Hematocrit Auto Volume Fraction (Bld) 44.4 % Normal 36.0-45.0 [facility] Comment on above: Performed By: #### 4 1000, 48054, 36648, 53117, 67154, 97428 ####[facility] Hemoglobin mass conc (Bld) 14.7 g/dL Normal 12.0-15.0 [facility] Comment on above: Performed By: #### 4 1000, 76626, 07532, 22276, 03292, 46793 ####[facility] IMMATURE GRANS 0.5 % Normal 0.0-1.0 [facility] Comment on above: Performed By: #### 4 1000, 27567, 72807, 42062, 07141, 35169 ####[facility] Lymphocytes Auto #/vol (Bld) 1.0 10*3/uL Low 1.2-4.0 [facility] Comment on above: Performed By: #### 4 1000, 38546, 60024, 13094, 46195, 32915 ####[facility]3000 [facility].[address] Lymphocytes/100 WBC Auto (Bld) 15.5 % Low 20.0-45.0 [facility] Comment on above: Performed By: #### 4 1000, 07366, 69918, 52911, 55673, 75036 ####[address] MCH Auto Entitic mass (RBC) 28.9 pg Normal 27.0-33.0 [facility] Comment on above: Performed By: #### 4 1000, 17687, 44965, 41876, 39044, 42449 ####[address] MCHC Auto mass conc (RBC) 33.1 g/dL Normal 32.0-35.0 [facility] Comment on above: Performed By: #### 4 1000, 04430, 02514, 95493, 28817, 97217 ####[place] [address] [facility].[address] MCV Auto Entitic volume (RBC) 87.4 fL Normal 82.0-98.0 [facility] Comment on above: Performed By: #### 4 1000, 36374, 36498, 12073, 51887, 84994 ####[place] [address] [facility].[address] Monocytes Auto #/vol (Bld) 0.8 10*3/uL Normal 0.1-1.0 [facility] Comment on above: Performed By: #### 4 1000, 95212, 56096, 77447, 85332, 52985 ####[facility]3000 [facility].[address] MONOS 12.3 % High 5.0-12.0 [facility] Comment on above: Performed By: #### 4 1000, 58729, 83646, 12388, 87584, 44897 ####[facility]3000 [facility] [place] [address], [facility] Neutrophils/100 WBC Auto (Bld) 69.4 % Normal 40.0-72.0 [facility] Comment on above: Performed By: #### 4 1000, 51658, 86702, 17405, 20929, 59837 ####[facility]3000 [facility].[address] Nucleated RBC/100 WBC Ratio (Bld) 0 % Normal 0-0 [facility] Comment on above: Performed By: #### 4 1000, 90202, 98038, 96035, 67545, 56886 ####[facility] [facility].[address] PLAT CNT 218 10*3/uL Normal 150-400 [facility] Comment on above: Performed By: #### 4 1000, 81209, 97541, 70216, 44971, 94827 ####[facility] [facility].[address] RBC Auto #/vol (Bld) 5.08 10*6/uL High 3.80-5.00 [facility] [place] [facility] Comment on above: Performed By: #### 4 1000, 05073, 90973, 09864, 12394, 62108 ####[facility]3000 [facility].[address] WBC Auto #/vol (Bld) 6.3 10*3/uL Normal 4.0-10.6 [facility] Comment on above: Performed By: #### 4 1000, 62889, 38618, 13199, 68713, 24921 ####[facility]3000 [facility].[address] COMP METABOLIC PANELon 07-23 Albumin mass conc 4.2 g/dL Normal 3.5-5.7 The [facility] Comment on above: Performed By: #### 4 1000, 56268, 82573, 39300, 71708, 71187 ####[facility] [place] [address], [facility] ALKALINE PHOSPH 113 IU/L High 34-104 The [facility] Comment on above: Performed By: #### 4 1000, 68007, 22034, 60216, 81823, 86411 ####[facility] ALT enzyme act/vol 23 U/L Normal 7-52 [facility] Comment on above: Performed By: #### 4 1000, 69711, 98053, 35843, 60328, 08665 ####[facility] AST enzyme act/vol 25 U/L Normal 13-39 [facility] Comment on above: Performed By: #### 4 1000, 44996, 72747, 81868, 47601, 36157 ####[facility] [place] [address], [facility] Bilirubin mass conc 0.6 mg/dL Normal 0.3-1.0 The [facility] Comment on above: Performed By: #### 4 1000, 63710, 94502, 81037, 19361, 13688 ####[facility] [place] [address], [facility] Calcium mass conc 9.6 mg/dL Normal 8.6-10.3 [facility] Comment on above: Performed By: #### 4 1000, 12176, 95055, 39898, 06804, 56852 ####[facility] [place] [address], [facility] Chloride molar conc 104 mmol/L Normal 98-107 The [facility] Comment on above: Performed By: #### 4 1000, 67632, 45889, 27431, 24665, 07585 ####[facility] [place] [address], [facility] CO2 molar conc 25 mmol/L Normal 21-31 [facility] Comment on above: Performed By: #### 4 1000, 10034, 98730, 96797, 37681, 94455 ####[facility] [place] [address], [facility] Creatinine mass conc 0.80 mg/dL Normal 0.60-1.20 [facility] Comment on above: Performed By: #### 4 1000, 78904, 02346, 47763, 90991, 75158 ####[facility] [place] [address], [facility] GFR/1.73 sq M predicted among blacks MDRD vol rate/area (S/P/Bld) mL/min/{1.73_m2} Normal >60 [facility] Comment on above: Performed By: #### 4 1000, 30445, 53735, 26920, 36273, 24538 ####[facility] [place] [address], [facility] GFR/1.73 sq M predicted among non-blacks MDRD vol rate/area (S/P/Bld) mL/min/{1.73_m2} Normal >[address] [facility] Comment on above: Performed By: #### 4 1000, 93239, 93947, 78434, 42890, 62214 ####[facility] [place] [address], [place] Glucose mass conc 91 mg/dL Normal 70-100 [facility] Comment on above: Performed By: #### 4 1000, 88095, 97228, 17648, 96479, 78560 ####[facility] [place] [address], [place] Potassium molar conc 4.0 mmol/L Normal 3.5-5.1 [facility] Comment on above: Performed By: #### 4 1000, 00470, 87641, 30125, 93968, 48864 ####[facility] Protein mass conc 6.8 g/dL Normal 6.0-8.3 [facility] Comment on above: Performed By: #### 4 1000, 77567, 71680, 34684, 95928, 51586 ####[facility] Sodium molar conc 140 mmol/L Normal 136-145 [facility] Comment on above: Performed By: #### 4 1000, 17869, 53093, 01157, 90458, 67756 ####[facility] Urea nitrogen mass conc 16 mg/dL Normal 7-25 [facility] Comment on above: Performed By: #### 4 1000, 38130, 09290, 36888, 84513, 61458 ####[facility] DIRECT BILIon 07-23-2017 Bilirubin.direct mass conc 0.2 mg/dL Normal 0.0-0.2 [facility] Comment on above: Performed By: #### 4 1000, 75340, 65034, 46967, 88134, 73483 ####[facility] EVEROLIMUS 34720rl 8 EVEROLIMUS 5.3 ng/mL Normal [facility] Comment on above: Result Comment: Ther [...] the transplantcenter.Test developed and characteristics determined by [employer]. See Compliance Statement B: [employer]/CSPerformed by [employer],[address] [place] [id number] xbm.[employer], Leonid Antonio MD - Lab. Director LIPID PROFILEon 07-23-2017 Cholesterol in HDL mass conc 45 mg/dL Normal 23-92 [facility] Comment on above: Result Comment: Slig ht variation in normal range could be due to gender and/or age.HDL CHOLESTEROL REFERENCE RANGE:20 years and older Cardiovascular Risk> or =60 mg/dL [id number] TO 59 mg/dL Low Risk<40 mg/dL High Risk Performed By: #### 4 1000, 75572, 20035, 70172, 56176, 02049 ####[facility]3000 [facility].[address] Cholesterol in LDL mass conc 79 mg/dL Normal 0-130 [facility] Comment on above: Result Comment: LDL IS A CALCULATIONLDL IS ONLY VALID IF THE TRIG IS LESS THAN 400. Performed By: #### 4 1000, 93710, 25837, 58422, 63443, 51822 ####[facility] [place] [address], [facility] Cholesterol mass conc 141 mg/dL Normal 120-200 [facility] Comment on above: Result Comment: CHOL ESTEROL REFERENCE RANGE:20 YEARS AND OLDER CARDIOVASCULAR RISKLess than 200 mg/dl Low Noat395 to 239 mg/dl Borderline Ydds710 mg/dl and greater High Risk Performed By: #### 4 1000, 73614, 95383, 20149, 43963, 71102 ####[facility] Cholesterol.total/Cho lesterol in HDL mass ratio 3.1 {ratio} Normal .0-4.5 [facility] Comment on above: Performed By: #### 4 1000, 20443, 73598, 91917, 81452, 77121 ####[facility]3000 [facility].[address] NON-HDL CHOLESTEROL 96 mg/dL Normal The [facility] Comment on above: Performed By: #### 4 1000, 43482, 45084, 67955, 18424, 38462 ####[facility]3000 [facility].[address] Triglyceride mass conc 83 mg/dL Normal 40-149 [facility] Comment on above: Result Comment: TRIG LYCERIDE REFERENCE RANGE:20 YEARS AND OLDER CARDIOVASCULAR RISKLESS THAN 150 mg/dl LOW [id number] TO 199 mg/dl BORDERLINE NCZL274 mg/dl AND GREATER HIGH RISK Performed By: #### 4 1000, 39192, 41154, 98841, 67485, 98430 ####[facility]3000 [facility].[address] VLDL CHOL 17 mg/dL Normal 0-40 [facility] Comment on above: Performed By: #### 4 1000, 04091, 01902, 37085, 58104, 75387 ####[facility]3000 [facility].[address] MAGNESIUM BLOODon 07-23-2017 Magnesium mass conc 2.0 mg/dL Normal 1.9-2.7 The [facility] Comment on above: Performed By: #### 4 1000, 83001, 84843, 03307, 42115, 46609 ####[facility]3000 [facility].[address] PHOSPHORUS BLOODon 8 Phosphate mass conc 4.0 mg/dL Normal 2.5-5.0 The [facility] Comment on above: Performed By: #### 4 1000, 90457, 45741, 12542, 77613, 66817 ####[facility]3000 [facility].[address] TACROLIMUSon 07-23-2017 Tacrolimus mass conc (Bld) 4.6 ng/mL Low 5.0-20.0 [facility] Comment on above: Result Comment: The [employer] DENTAL HYGIENIST MOBILE COORDINATOR Tacrolimus assay is a delayed one-step immunoassayfor the quantitative determination of tacrolimus in human whole bloodusing the chemiluminescent microparticle immunoassay (CMIA) technologywith flexible assay protocols, referred to as Chemiflex. Performed By: #### 4 1000, 40222, 79839, 71417, 08985, 37569 ####[facility] URIC ACID BLOODon 07-23-2017 Urate mass conc 4.7 mg/dL Normal 2.3-6.6 The [facility] Comment on above: Performed By: #### 4 1000, 06510, 36421, 78199, 95288, 12985 ####[facility]3000 [facility].[address] CBC W/DIFFon 06-20-2017 ABS BASOPHILS 0.0 10*3/uL Normal 0.0-0.2 The [facility] Comment on above: Performed By: #### 4 1000, 23211, 22683, 77255, 82390, 37170 ####[facility] ABS IMM GRANS 0.0 10*3/uL Normal 0.0-0.2 The [facility] Comment on above: Performed By: #### 4 1000, 63552, 19183, 60235, 87127, 82787 ####[facility] ABS NEUTROPHILS 4.2 10*3/uL Normal 1.6-7.[address] [facility] Comment on above: Performed By: #### 4 1000, 92595, 44471, 90451, 77703, 10021 ####[facility] Basophils Auto #/vol (Bld) 0.2 % Normal 0.0-1.0 [facility] Comment on above: Performed By: #### 4 1000, 10723, 24355, 92737, 39884, 67003 ####[facility] Eosinophils Auto #/vol (Bld) 0.1 10*3/uL Normal 0.0-0.5 [facility] Comment on above: Performed By: #### 4 1000, 86290, 67557, 84139, 80160, 14846 ####[facility] Eosinophils/100 WBC Auto (Bld) 1.5 % Normal 0.0-6.0 [facility] Comment on above: Performed By: #### 4 1000, 07025, 59966, 74835, 47271, 95559 ####[facility] Erythrocyte distribution width Auto Ratio (RBC) 13.4 % Normal 11.5-15.0 [facility] Comment on above: Performed By: #### 4 1000, 70779, 14070, 08476, 07115, 16734 ####[facility] Hematocrit Auto Volume Fraction (Bld) 44.9 % Normal 36.0-45.0 The [facility] Comment on above: Performed By: #### 4 1000, 39682, 91774, 36284, 48317, 07460 ####[facility]3000 [facility].[address] Hemoglobin mass conc (Bld) 14.9 g/dL Normal 12.0-15.0 [facility] Comment on above: Performed By: #### 4 1000, 71943, 81603, 04165, 87024, 66192 ####[facility]3000 [facility].[address] IMMATURE GRANS 0.2 % Normal 0.0-1.0 The [facility] Comment on above: Performed By: #### 4 1000, 58760, 80274, 47294, 97344, 37751 ####[place] [address] [facility].[address] Lymphocytes Auto #/vol (Bld) 1.1 10*3/uL Low 1.2-4.0 [facility] Comment on above: Performed By: #### 4 1000, 54221, 09528, 94363, 48754, 43919 ####[facility]3000 [facility].[address] Lymphocytes/100 WBC Auto (Bld) 17.4 % Low 20.0-45.0 [facility] Comment on above: Performed By: #### 4 1000, 68436, 58610, 00928, 96728, 29895 ####[facility]3000 [facility].[address] MCH Auto Entitic mass (RBC) 29.2 pg Normal 27.0-33.0 [facility] Comment on above: Performed By: #### 4 1000, 15839, 08522, 69744, 66766, 51448 ####[facility]3000 [facility].[address] MCHC Auto mass conc (RBC) 33.2 g/dL Normal 32.0-35.0 [facility] Comment on above: Performed By: #### 4 1000, 30170, 37976, 52344, 73312, 26682 ####[facility] MCV Auto Entitic volume (RBC) 87.9 fL Normal 82.0-98.0 [facility] Comment on above: Performed By: #### 4 1000, 11492, 71934, 57029, 44559, 49388 ####[facility] Monocytes Auto #/vol (Bld) 0.7 10*3/uL Normal 0.1-1.0 [facility] Comment on above: Performed By: #### 4 1000, 38606, 50407, 98886, 34895, 43435 ####[facility] MONOS 11.3 % Normal 5.0-12.0 [facility] Comment on above: Performed By: #### 4 1000, 97379, 47572, 06138, 19409, 42859 ####[facility] Neutrophils/100 WBC Auto (Bld) 69.4 % Normal 40.0-72.0 [facility] Comment on above: Performed By: #### 4 1000, 31866, 02035, 67076, 20868, 83368 ####[facility] Nucleated RBC/100 WBC Ratio (Bld) 0 % Normal 0-0 [facility] Comment on above: Performed By: #### 4 1000, 57722, 67401, 87702, 27985, 25098 ####[facility] PLAT CNT 198 10*3/uL Normal 150-400 The [facility] Comment on above: Performed By: #### 4 1000, 77802, 15421, 48062, 95347, 98286 ####[facility] RBC Auto #/vol (Bld) 5.11 10*6/uL High 3.80-5.00 [facility] Comment on above: Performed By: #### 4 1000, 81785, 41222, 80515, 70775, 84100 ####[facility] WBC Auto #/vol (Bld) 6.0 10*3/uL Normal 4.0-10.6 [facility] Comment on above: Performed By: #### 4 1000, 42142, 66002, 38600, 52183, 61826 ####[facility] COMP METABOLIC PANELon 06-20 Albumin mass conc 4.4 g/dL Normal 3.5-5.7 [facility] Comment on above: Performed By: #### 4 1000, 89883, 10899, 67198, 39295, 99960 ####[facility] ALKALINE PHOSPH 133 IU/L High 34-104 [facility] Comment on above: Performed By: #### 4 1000, 91081, 90226, 43564, 16012, 24467 ####[facility] ALT enzyme act/vol 16 U/L Normal 7-52 [facility] Comment on above: Performed By: #### 4 1000, 97143, 39367, 26286, 78684, 52879 ####[facility] [place] [address], [facility] AST enzyme act/vol 21 U/L Normal 13-39 [facility] Comment on above: Performed By: #### 4 1000, 45466, 24119, 65157, 08195, 70573 ####[facility] [place] [address], [place] Bilirubin mass conc 0.8 mg/dL Normal 0.3-1.0 The [facility] Comment on above: Performed By: #### 4 1000, 07164, 62991, 16676, 79832, 34267 ####[facility] [place] [address], [facility] Calcium mass conc 10.0 mg/dL Normal 8.6-10.3 [facility] Comment on above: Performed By: #### 4 1000, 58689, 29866, 11947, 37334, 52279 ####[facility] [place] [address], [place] Chloride molar conc 106 mmol/L Normal 98-107 The [facility] Comment on above: Performed By: #### 4 1000, 14195, 97803, 70932, 33223, 54467 ####[facility] [place] [address], [place] CO2 molar conc 27 mmol/L Normal 21-31 The [facility] Comment on above: Performed By: #### 4 1000, 68651, 97966, 44056, 59633, 92121 ####[facility] [place] [address], [place] Creatinine mass conc 0.74 mg/dL Normal 0.60-1.20 [facility] Comment on above: Performed By: #### 4 1000, 65735, 84715, 93372, 32150, 70593 ####[facility] [place] [address], [facility] GFR/1.73 sq M predicted among blacks MDRD vol rate/area (S/P/Bld) mL/min/{1.73_m2} Normal >[address] [facility] Comment on above: Performed By: #### 4 1000, 91689, 34678, 05073, 46236, 96999 ####[facility] [place] [address], [facility] GFR/1.73 sq M predicted among non-blacks MDRD vol rate/area (S/P/Bld) mL/min/{1.73_m2} Normal >[address] [facility] Comment on above: Performed By: #### 4 1000, 78489, 19016, 78012, 86569, 06950 ####[facility] [place] [address], [facility] Glucose mass conc 95 mg/dL Normal 70-100 [facility] Comment on above: Performed By: #### 4 1000, 17984, 28178, 54785, 33537, 29594 ####[facility] [place] [address], [facility] Potassium molar conc 3.8 mmol/L Normal 3.5-5.1 [facility] Comment on above: Performed By: #### 4 1000, 69858, 11218, 79232, 92719, 38960 ####[facility] [place] [address], [facility] Protein mass conc 7.3 g/dL Normal 6.0-8.3 [facility] Comment on above: Performed By: #### 4 1000, 24739, 59769, 07102, 01850, 81304 ####[facility] [place] [address], [facility] Sodium molar conc 137 mmol/L Normal 136-145 [facility] Comment on above: Performed By: #### 4 1000, 53344, 74007, 45508, 88206, 86271 ####[facility] [place] [address], [facility] Urea nitrogen mass conc 16 mg/dL Normal 7-25 [facility] Comment on above: Performed By: #### 4 1000, 18300, 28258, 58911, 99252, 73858 ####[facility] DIRECT BILIon 06-20-2017 Bilirubin.direct mass conc 0.1 mg/dL Normal 0.0-0.2 [facility] Comment on above: Performed By: #### 4 1000, 68259, 86909, 28597, 77416, 64350 ####[facility] EVEROLIMUS 73262bi 8 EVEROLIMUS 6.7 ng/mL Normal [facility] Comment on above: Result Comment: Ther [...] the transplantcenter.Test developed and characteristics determined by [employer]. See Compliance Statement B: [email or web address] by [employer],[address] [place] [address] okx.[employer], Leonid Antonio MD - Lab. Director LIPID PROFILEon 06-20-2017 Cholesterol in HDL mass conc 45 mg/dL Normal 23-92 [facility] Comment on above: Result Comment: Slig ht variation in normal range could be due to gender and/or age.HDL CHOLESTEROL REFERENCE RANGE:20 years and older Cardiovascular Risk> or =60 mg/dL Pepilnlbu79 TO 59 mg/dL Low Risk<40 mg/dL High Risk Performed By: #### 4 1000, 13449, 49853, 27118, 74369, 46933 ####[facility] [place] [address], [place] Cholesterol in LDL mass conc 58 mg/dL Normal 0-130 [facility] Comment on above: Result Comment: LDL IS A CALCULATIONLDL IS ONLY VALID IF THE TRIG IS LESS THAN 400. Performed By: #### 4 1000, 32942, 39161, 88369, 02872, 59013 ####[facility] [place] [address], [place] Cholesterol mass conc 126 mg/dL Normal 120-200 [facility] Comment on above: Result Comment: CHOL ESTEROL REFERENCE RANGE:20 YEARS AND OLDER CARDIOVASCULAR RISKLess than 200 mg/dl Low Etin265 to 239 mg/dl Borderline Hwsn548 mg/dl and greater High Risk Performed By: #### 4 1000, 13758, 23266, 95833, 95442, 76056 ####[facility] [place] [address], [place] Cholesterol.total/Cho lesterol in HDL mass ratio 2.8 {ratio} Normal .0-4.5 [facility] Comment on above: Performed By: #### 4 1000, 50764, 87956, 22241, 35813, 74763 ####[facility] [place] [address], [place] NON-HDL CHOLESTEROL 81 mg/dL Normal [facility] Comment on above: Performed By: #### 4 1000, 25654, 49015, 67874, 17009, 87355 ####[facility] Triglyceride mass conc 113 mg/dL Normal 40-149 [facility] Comment on above: Result Comment: TRIG LYCERIDE REFERENCE RANGE:20 YEARS AND OLDER CARDIOVASCULAR RISKLESS THAN 150 mg/dl LOW BLET213 TO 199 mg/dl BORDERLINE BCQQ758 mg/dl AND GREATER HIGH RISK Performed By: #### 4 1000, 30893, 32040, 48417, 19949, 29878 ####[facility]3000 [facility].[address] VLDL CHOL 23 mg/dL Normal 0-40 [facility] Comment on above: Performed By: #### 4 1000, 83342, 96469, 10098, 40635, 07839 ####[facility]3000 [facility].[address] MAGNESIUM BLOODon 06-20-2017 Magnesium mass conc 1.9 mg/dL Normal 1.9-2.7 [facility] Comment on above: Performed By: #### 4 1000, 72260, 29066, 54272, 61806, 08577 ####[facility]3000 [facility].[address] PHOSPHORUS BLOODon 8 Phosphate mass conc 3.1 mg/dL Normal 2.5-5.0 [facility] Comment on above: Performed By: #### 4 1000, 11644, 18717, 29036, 42334, 87201 ####[facility]3000 [facility].[address] TACROLIMUSon 06-20-2017 Tacrolimus mass conc (Bld) 4.2 ng/mL Low 5.0-20.0 [facility] Comment on above: Result Comment: The [employer] DENT[employer] HYGIENIST MOBILE COORDINATOR Tacrolimus assay is a delayed one-step immunoassayfor the quantitative determination of tacrolimus in human whole bloodusing the chemiluminescent microparticle immunoassay (CMIA) technologywith flexible assay protocols, referred to as Chemiflex. Performed By: #### 4 1000, 35615, 25729, 99831, 02286, 16881 ####[facility] [facility] [place] [address], [facility] URIC ACID BLOODon 06-20-2017 Urate mass conc 4.3 mg/dL Normal 2.3-6.6 The [facility] Comment on above: Performed By: #### 4 1000, 58074, 64564, 77094, 36601, 41213 ####[facility] [facility].[address] BK VIRUS QUANTITATION PCR BL OODon 05-27-2017 BKV QUANT PCR Not detected Normal The [facility] Comment on above: Result Comment: Meth od: BK virus was measured by quantitative polymerase chain reactionusing a TaqMan probe targeting the polyomavirus BK EXERCISE RIDER-1 gene.The lower limit of quantitation of the assay is 500 copies of BK genomeper milliliter of plasma or urine, and any detectable BK DNA below thatlevel is reported as: Detected, <500 copies/ml. Serial BK virusmeasurement can be used to monitor disease activity. (Reference:Kelsie vaughanl. J CLIN MICRO 2004; 42:3037-7313).This test was developed and its performance characteristics determinedby the [facility]. It has not been approvedby the [place] Food and Drug Administration. However, such approval is notrequired for clinical implementation, and test results have been shownto be clinically useful. This laboratory is CAP accredited and CLIAcertified to perform high complexity testing. Performed By: #### 4 1000, 10038, 54100, 07073, 81516, 66989 ####[facility] [facility] [place] [address], [facility] LOG 10 COPIES Not detected Normal The [facility] Comment on above: Performed By: #### 4 1000, 02172, 78345, 87083, 40478, 27520 ####[facility] [facility].[address] CBC W/DIFFon 05-27-2017 ABS BASOPHILS 0.0 10*3/uL Normal 0.0-0.2 [facility] Comment on above: Performed By: #### 4 1000, 12690, 72678, 38128, 83139, 70412 ####[facility] [facility].[address] ABS IMM GRANS 0.0 10*3/uL Normal 0.0-0.2 [facility] Comment on above: Performed By: #### 4 1000, 82596, 53217, 06486, 07542, 16026 ####[facility] [facility].[address] ABS NEUTROPHILS 4.8 10*3/uL Normal 1.6-7.[address] [facility] Comment on above: Performed By: #### 4 1000, 30685, 04779, 21656, 13721, 10081 ####[facility] [facility].[address] Basophils Auto #/vol (Bld) 0.0 % Normal 0.0-1.0 [facility] Comment on above: Performed By: #### 4 1000, 88206, 75559, 73798, 57311, 83725 ####[facility] [facility].[address] Eosinophils Auto #/vol (Bld) 0.1 10*3/uL Normal 0.0-0.5 [facility] Comment on above: Performed By: #### 4 1000, 20456, 44921, 75860, 78742, 51545 ####[facility] [facility].[address] Eosinophils/100 WBC Auto (Bld) 1.1 % Normal 0.0-6.0 [facility] Comment on above: Performed By: #### 4 1000, 28612, 47187, 65409, 88594, 06299 ####[facility] [facility].[address] Erythrocyte distribution width Auto Ratio (RBC) 13.5 % Normal 11.5-15.0 [facility] Comment on above: Performed By: #### 4 1000, 43077, 50721, 59099, 50646, 04615 ####[facility] [facility].[address] Hematocrit Auto Volume Fraction (Bld) 46.1 % High 36.0-45.0 [facility] Comment on above: Performed By: #### 4 1000, 81430, 85851, 01551, 54916, 62302 ####[facility] [facility].[address] Hemoglobin mass conc (Bld) 15.0 g/dL Normal 12.0-15.0 [facility] Comment on above: Performed By: #### 4 1000, 71380, 30922, 15872, 45172, 87741 ####[facility] [facility].[address] IMMATURE GRANS 0.3 % Normal 0.0-1.0 [facility] Comment on above: Performed By: #### 4 1000, 49381, 08073, 70133, 64832, 75912 ####[facility] [facility].[address] Lymphocytes Auto #/vol (Bld) 1.0 10*3/uL Low 1.2-4.0 [facility] Comment on above: Performed By: #### 4 1000, 24883, 28307, 40668, 21261, 82797 ####[facility] Lymphocytes/100 WBC Auto (Bld) 15.7 % Low 20.0-45.0 [facility] Comment on above: Performed By: #### 4 1000, 17972, 18204, 99601, 66177, 92436 ####[facility] MCH Auto Entitic mass (RBC) 28.8 pg Normal 27.0-33.0 [facility] Comment on above: Performed By: #### 4 1000, 75770, 37900, 66794, 91284, 98593 ####[facility] MCHC Auto mass conc (RBC) 32.5 g/dL Normal 32.0-35.0 [facility] Comment on above: Performed By: #### 4 1000, 96451, 55725, 10328, 61157, 45208 ####[facility] MCV Auto Entitic volume (RBC) 88.7 fL Normal 82.0-98.0 [facility] Comment on above: Performed By: #### 4 1000, 31810, 86782, 22989, 32979, 94972 ####[facility] Monocytes Auto #/vol (Bld) 0.8 10*3/uL Normal 0.1-1.0 [facility] Comment on above: Performed By: #### 4 1000, 37881, 30409, 54563, 58032, 21305 ####[facility] MONOS 11.4 % Normal 5.0-12.0 [facility] Comment on above: Performed By: #### 4 1000, 20449, 69533, 21283, 90520, 93352 ####[facility] Neutrophils/100 WBC Auto (Bld) 71.5 % Normal 40.0-72.0 [facility] Comment on above: Performed By: #### 4 1000, 78176, 90638, 93225, 74647, 36204 ####[facility] [facility].[address] Nucleated RBC/100 WBC Ratio (Bld) 0 % Normal 0-0 [facility] Comment on above: Performed By: #### 4 1000, 22315, 73581, 86940, 58135, 17445 ####[facility] PLAT CNT 199 10*3/uL Normal 150-400 The [facility] Comment on above: Performed By: #### 4 1000, 64184, 14038, 14760, 25056, 57160 ####[facility] [facility].[address] RBC Auto #/vol (Bld) 5.20 10*6/uL High 3.80-5.00 [facility] Comment on above: Performed By: #### 4 1000, 19653, 59349, 50795, 05762, 71901 ####[facility] [facility].[address] WBC Auto #/vol (Bld) 6.6 10*3/uL Normal 4.0-10.6 [facility] Comment on above: Performed By: #### 4 1000, 28523, 41674, 15554, 31727, 07860 ####[facility] [facility].[address] COMP METABOLIC PANELon 05-27 Albumin mass conc 4.6 g/dL Normal 3.5-5.7 [facility] Comment on above: Performed By: #### 4 1000, 39130, 89293, 22945, 85937, 40890 ####[facility] ALKALINE PHOSPH 105 IU/L High 34-104 [facility] Comment on above: Performed By: #### 4 1000, 51714, 27724, 96865, 84595, 29871 ####[facility] [place] [address], [facility] ALT enzyme act/vol 20 U/L Normal 7-52 [facility] Comment on above: Performed By: #### 4 1000, 05089, 23315, 63929, 49872, 69292 ####[facility] [place] [address], [facility] AST enzyme act/vol 23 U/L Normal 13-39 [facility] Comment on above: Performed By: #### 4 1000, 97193, 48923, 12744, 09665, 69326 ####[facility] [place] [address], [facility] Bilirubin mass conc 0.6 mg/dL Normal 0.3-1.0 [facility] Comment on above: Performed By: #### 4 1000, 87703, 49320, 77944, 82717, 10059 ####[facility] [place] [address], [facility] Calcium mass conc 9.8 mg/dL Normal 8.6-10.3 [facility] Comment on above: Performed By: #### 4 1000, 85642, 72922, 04786, 14247, 48164 ####[facility] [place] [address], [place] Chloride molar conc 106 mmol/L Normal 98-107 [facility] Comment on above: Performed By: #### 4 1000, 53964, 72134, 12348, 06649, 04750 ####[facility] [place] [address], [place] CO2 molar conc 30 mmol/L Normal 21-31 [facility] Comment on above: Performed By: #### 4 1000, 95349, 56153, 67818, 39749, 41901 ####[facility] [place] [address], [facility] Creatinine mass conc 0.80 mg/dL Normal 0.60-1.20 [facility] Comment on above: Performed By: #### 4 1000, 92353, 09913, 33460, 94281, 03316 ####[facility] [place] [address], [facility] GFR/1.73 sq M predicted among blacks MDRD vol rate/area (S/P/Bld) mL/min/{1.73_m2} Normal >[address] [facility] Comment on above: Performed By: #### 4 1000, 73387, 02687, 04258, 76749, 38729 ####[facility] [place] [address], [facility] GFR/1.73 sq M predicted among non-blacks MDRD vol rate/area (S/P/Bld) mL/min/{1.73_m2} Normal >[address] [facility] Comment on above: Performed By: #### 4 1000, 14158, 73759, 83030, 63132, 31965 ####[facility] [place] [address], [facility] Glucose mass conc 90 mg/dL Normal 70-100 [facility] Comment on above: Performed By: #### 4 1000, 10902, 32408, 57562, 05945, 91894 ####[facility] [place] [place] [address], [facility] Potassium molar conc 4.0 mmol/L Normal 3.5-5.1 [facility] Comment on above: Performed By: #### 4 1000, 68473, 34666, 49654, 03673, 71320 ####[facility] Protein mass conc 6.8 g/dL Normal 6.0-8.3 [facility] Comment on above: Performed By: #### 4 1000, 66999, 08827, 40602, 49931, 52500 ####[facility] Sodium molar conc 138 mmol/L Normal 136-145 [facility] Comment on above: Performed By: #### 4 1000, 26378, 80244, 87515, 31943, 14139 ####[facility] [facility].[address] Urea nitrogen mass conc 14 mg/dL Normal 7-25 [facility] Comment on above: Performed By: #### 4 1000, 98382, 31303, 99312, 60519, 46897 ####[facility] [facility].[address] DIRECT BILIon 05-27-2017 Bilirubin.direct mass conc 0.1 mg/dL Normal 0.0-0.2 [facility] Comment on above: Performed By: #### 4 1000, 65909, 93745, 16111, 23667, 62067 ####[place] [address] [facility].[address] EVEROLIMUS 87845st 8 EVEROLIMUS 5.6 ng/mL Normal [facility] Comment on above: Result Comment: Ther [...] the transplantcenter.Test developed and characteristics determined by [employer]. See Compliance Statement B: [employer]/CSPerformed by [employer],[address] [place] [address] phi.[employer], Leonid Antonio MD - Lab. Director HEMOGLOBIN A1Con 05-27-2017 Glucose mass conc 108 mg/dL Normal 70-126 [facility] Comment on above: Performed By: #### 4 1000, 31398, 11917, 41571, 76671, 89049 ####[facility] [place] [address], [facility] Hemoglobin A1c/Hemoglobin.total mass fraction (Bld) 5.4 % Normal 4.0-6.0 The [facility] Comment on above: Performed By: #### 4 1000, 66697, 30819, 40753, 40748, 31370 ####[facility] [facility] [place] [address], [facility] LIPID PROFILEon 05-27-2017 Cholesterol in HDL mass conc 39 mg/dL Normal 23-92 [facility] Comment on above: Result Comment: Slig ht variation in normal range could be due to gender and/or age.HDL CHOLESTEROL REFERENCE RANGE:20 years and older Cardiovascular Risk> or =60 mg/dL [id number] TO 59 mg/dL Low Risk<40 mg/dL High Risk Performed By: #### 4 1000, 57539, 89107, 35533, 85727, 45911 ####[facility] [place] [address], [place] Cholesterol in LDL mass conc 52 mg/dL Normal 0-130 [facility] Comment on above: Result Comment: LDL IS A CALCULATIONLDL IS ONLY VALID IF THE TRIG IS LESS THAN 400. Performed By: #### 4 1000, 47440, 84646, 86476, 08297, 98708 ####[facility] [place] [address], [facility] Cholesterol mass conc 117 mg/dL Low 120-200 [facility] Comment on above: Result Comment: CHOL ESTEROL REFERENCE RANGE:20 YEARS AND OLDER CARDIOVASCULAR RISKLess than 200 mg/dl Low [id number] to 239 mg/dl Borderline Amxh013 mg/dl and greater High Risk Performed By: #### 4 1000, 74936, 57720, 51134, 92284, 84163 ####[facility] [place] [address], [facility] Cholesterol.total/Cho lesterol in HDL mass ratio 3.0 {ratio} Normal .0-4.5 [facility] Comment on above: Performed By: #### 4 1000, 94609, 92675, 97709, 95197, 16259 ####[facility] NON-HDL CHOLESTEROL 78 mg/dL Normal [facility] Comment on above: Performed By: #### 4 1000, 80015, 97570, 17770, 03087, 09816 ####[facility] [place] [address], [facility] Triglyceride mass conc 131 mg/dL Normal 40-149 [facility] Comment on above: Result Comment: TRIG LYCERIDE REFERENCE RANGE:20 YEARS AND OLDER CARDIOVASCULAR RISKLESS THAN 150 mg/dl LOW GROO221 TO 199 mg/dl BORDERLINE [id number] mg/dl AND GREATER HIGH RISK Performed By: #### 4 1000, 41369, 05185, 97872, 35724, 85109 ####[facility] [place] [address], [facility] VLDL CHOL 26 mg/dL Normal 0-40 [facility] Comment on above: Performed By: #### 4 1000, 72532, 50895, 51249, 62894, 80848 ####[facility] [facility].[address] MAGNESIUM BLOODon 05-27-2017 Magnesium mass conc 2.1 mg/dL Normal 1.9-2.7 [facility] Comment on above: Performed By: #### 4 1000, 48093, 83554, 56186, 52697, 68221 ####[facility] [facility].[address] PHOSPHORUS BLOODon 8 Phosphate mass conc 3.5 mg/dL Normal 2.5-5.0 [facility] Comment on above: Performed By: #### 4 1000, 94475, 94947, 34997, 43624, 15903 ####[facility] [facility].[address] TACROLIMUSon 05-27-2017 Tacrolimus mass conc (Bld) 4.4 ng/mL Low 5.0-20.0 [facility] Comment on above: Result Comment: The [employer] Tacrolimus assay is a delayed one-step immunoassayfor the quantitative determination of tacrolimus in human whole bloodusing the chemiluminescent microparticle immunoassay (CMIA) technologywith flexible assay protocols, referred to as Chemiflex. Performed By: #### 4 1000, 28189, 84129, 72338, 09733, 71636 ####[facility] [facility].[address] URIC ACID BLOODon 05-27-2017 Urate mass conc 4.6 mg/dL Normal 2.3-6.6 [facility] Comment on above: Performed By: #### 4 1000, 22012, 44143, 32563, 24443, 65766 ####[facility] [facility].[address] CBC W/DIFFon 01-30-2018 ABS BASOPHILS 0.0 10*3/uL Normal 0.0-0.2 [facility] Comment on above: Performed By: #### 4 1000, 90749, 40104, 49673, 41179, 98923 ####[facility] ABS IMM GRANS 0.0 10*3/uL Normal 0.0-0.2 [facility] Comment on above: Performed By: #### 4 1000, 85244, 54349, 22311, 88657, 88269 ####[facility] ABS NEUTROPHILS 4.6 10*3/uL Normal 1.6-7.[address] [facility] Comment on above: Performed By: #### 4 1000, 53622, 96348, 41519, 54413, 12538 ####[facility] Basophils Auto #/vol (Bld) 0.3 % Normal 0.0-1.0 [facility] Comment on above: Performed By: #### 4 1000, 64470, 61134, 80515, 96135, 41630 ####[place] [address] [address] Eosinophils Auto #/vol (Bld) 0.1 10*3/uL Normal 0.0-0.5 [facility] Comment on above: Performed By: #### 4 1000, 52645, 13868, 81102, 94224, 02277 ####[facility] Eosinophils/100 WBC Auto (Bld) 1.7 % Normal 0.0-6.0 [facility] Comment on above: Performed By: #### 4 1000, 80930, 93146, 52084, 04030, 93933 ####[facility] [facility].[address] Erythrocyte distribution width Auto Ratio (RBC) 13.7 % Normal 11.5-15.0 [facility] Comment on above: Performed By: #### 4 1000, 60887, 53185, 16094, 00807, 49784 ####[facility] [facility].[address] Hematocrit Auto Volume Fraction (Bld) 45.0 % Normal 36.0-45.0 [facility] Comment on above: Performed By: #### 4 1000, 65549, 78824, 88793, 61692, 14243 ####[place] [address] [facility].[address] Hemoglobin mass conc (Bld) 14.9 g/dL Normal 12.0-15.0 [facility] Comment on above: Performed By: #### 4 1000, 80790, 29156, 30838, 21452, 64038 ####[facility] [facility].[address] IMMATURE GRANS 0.3 % Normal 0.0-1.0 [facility] Comment on above: Performed By: #### 4 1000, 72163, 44765, 39747, 50911, 34278 ####[place] [address] [facility].[address] Lymphocytes Auto #/vol (Bld) 0.9 10*3/uL Low 1.2-4.0 [facility] Comment on above: Performed By: #### 4 1000, 42902, 97526, 60903, 49104, 71576 ####[facility] [facility].[address] Lymphocytes/100 WBC Auto (Bld) 14.2 % Low 20.0-45.0 [facility] Comment on above: Performed By: #### 4 1000, 94160, 01232, 78953, 36496, 12233 ####[facility] MCH Auto Entitic mass (RBC) 29.4 pg Normal 27.0-33.0 [facility] Comment on above: Performed By: #### 4 1000, 46099, 98349, 72846, 22465, 36309 ####[facility] MCHC Auto mass conc (RBC) 33.1 g/dL Normal 32.0-35.0 [facility] Comment on above: Performed By: #### 4 1000, 88349, 64493, 58983, 76801, 24838 ####[facility] MCV Auto Entitic volume (RBC) 88.8 fL Normal 82.0-98.0 [facility] Comment on above: Performed By: #### 4 1000, 67108, 46912, 28262, 77972, 20161 ####[facility]3000 [facility].[address] Monocytes Auto #/vol (Bld) 0.8 10*3/uL Normal 0.1-1.0 [facility] Comment on above: Performed By: #### 4 1000, 89363, 15605, 12709, 40454, 94675 ####[facility] MONOS 12.2 % High 5.0-12.0 [facility] Comment on above: Performed By: #### 4 1000, 54500, 70503, 19204, 47864, 12005 ####[facility] Neutrophils/100 WBC Auto (Bld) 71.3 % Normal 40.0-72.0 [facility] Comment on above: Performed By: #### 4 1000, 62787, 31039, 33056, 00978, 12174 ####[facility]3000 [facility].[address] Nucleated RBC/100 WBC Ratio (Bld) 0 % Normal 0-0 [facility] Comment on above: Performed By: #### 4 1000, 02116, 22925, 31344, 73585, 14701 ####[facility] PLAT CNT 215 10*3/uL Normal 150-400 [facility] Comment on above: Performed By: #### 4 1000, 16769, 00669, 63072, 17048, 50588 ####[facility]3000 [facility].[address] RBC Auto #/vol (Bld) 5.07 10*6/uL High 3.80-5.00 [facility] Comment on above: Performed By: #### 4 1000, 41741, 65503, 09046, 65187, 21998 ####[facility] [facility].[address] WBC Auto #/vol (Bld) 6.5 10*3/uL Normal 4.0-10.6 [facility] Comment on above: Performed By: #### 4 1000, 81471, 44403, 36325, 83128, 21705 ####[facility]3000 [facility].[address] COMP METABOLIC PANELon 04-29 Albumin mass conc 4.4 g/dL Normal 3.5-5.7 [facility] Comment on above: Performed By: #### 4 1000, 23182, 40375, 35299, 73227, 73200 ####[facility] ALKALINE PHOSPH 114 IU/L High 34-104 [facility] Comment on above: Performed By: #### 4 1000, 12138, 09421, 13990, 10495, 27248 ####[facility] [place] [address], [place] ALT enzyme act/vol 15 U/L Normal 7-52 [facility] Comment on above: Performed By: #### 4 1000, 91348, 67894, 24452, 37039, 01399 ####[facility] [place] [address], [place] AST enzyme act/vol 19 U/L Normal 13-39 [facility] Comment on above: Performed By: #### 4 1000, 65538, 77025, 41738, 49262, 67679 ####[facility] [place] [address], [place] Bilirubin mass conc 0.7 mg/dL Normal 0.3-1.0 [facility] Comment on above: Performed By: #### 4 1000, 90129, 56872, 29836, 84834, 96534 ####[facility] [place] [address], [place] Calcium mass conc 9.6 mg/dL Normal 8.6-10.3 [facility] Comment on above: Performed By: #### 4 1000, 79470, 93528, 97993, 52088, 55336 ####[facility] [place] [address], [place] Chloride molar conc 103 mmol/L Normal 98-107 [facility] Comment on above: Performed By: #### 4 1000, 77475, 86458, 97804, 76319, 41308 ####[facility] [place] [address], [place] CO2 molar conc 29 mmol/L Normal 21-31 [facility] Comment on above: Performed By: #### 4 1000, 93565, 98105, 76659, 60276, 17003 ####[facility] [place] [address], [facility] Creatinine mass conc 0.79 mg/dL Normal 0.60-1.20 [facility] Comment on above: Performed By: #### 4 1000, 08048, 71017, 59093, 60230, 53420 ####[facility] [place] [address], [facility] GFR/1.73 sq M predicted among blacks MDRD vol rate/area (S/P/Bld) mL/min/{1.73_m2} Normal >[address] [facility] Comment on above: Performed By: #### 4 1000, 22210, 93521, 70346, 12800, 01792 ####[facility] [place] [address], [facility] GFR/1.73 sq M predicted among non-blacks MDRD vol rate/area (S/P/Bld) mL/min/{1.73_m2} Normal >[address] [facility] Comment on above: Performed By: #### 4 1000, 40117, 45901, 12452, 14407, 71039 ####[facility] [place] [address], [facility] Glucose mass conc 90 mg/dL Normal 70-100 [facility] Comment on above: Performed By: #### 4 1000, 58595, 66800, 44346, 81928, 74188 ####[facility] [place] [address], [facility] Potassium molar conc 3.8 mmol/L Normal 3.5-5.1 [facility] Comment on above: Performed By: #### 4 1000, 00406, 99348, 77562, 56374, 99100 ####[facility] [place] [address], [place] Protein mass conc 7.2 g/dL Normal 6.0-8.3 [facility] Comment on above: Performed By: #### 4 1000, 20162, 92073, 34599, 24770, 47833 ####[facility] Sodium molar conc 140 mmol/L Normal 136-145 [facility] Comment on above: Performed By: #### 4 1000, 72766, 53001, 67147, 12234, 00157 ####[facility] Urea nitrogen mass conc 15 mg/dL Normal 7-25 [facility] Comment on above: Performed By: #### 4 1000, 72203, 81012, 51061, 06872, 76106 ####[facility] DIRECT BILIon 04-29-2017 Bilirubin.direct mass conc 0.1 mg/dL Normal 0.0-0.2 [facility] Comment on above: Order Comment: Liver Battery conflicts with Comprehensive Metabolic Panel. Liver Battery canceled and Direct Bilirubin added. Performed By: #### 4 1000, 81459, 44065, 13357, 10955, 94722 ####[facility] EVEROLIMUS [id number] 8 EVEROLIMUS 5.4 ng/mL Normal [facility] Comment on above: Result Comment: Ther [...] the transplantcenter.Test developed and characteristics determined by [employer]. See Compliance Statement B: [employer]/CSPerformed by [employer],[address] [place] [address] [id number] fpj.[employer], Leonid Antonio MD - Lab. Director LIPID PROFILEon 04-29-2017 Cholesterol in HDL mass conc 49 mg/dL Normal 23-92 [facility] Comment on above: Result Comment: Slig ht variation in normal range could be due to gender and/or age.HDL CHOLESTEROL REFERENCE RANGE:20 years and older Cardiovascular Risk> or =60 mg/dL Guvflenqf85 TO 59 mg/dL Low Risk<40 mg/dL High Risk Performed By: #### 4 1000, 56099, 87382, 21739, 36324, 67142 ####[facility] Cholesterol in LDL mass conc 52 mg/dL Normal 0-130 [facility] Comment on above: Result Comment: LDL IS A CALCULATIONLDL IS ONLY VALID IF THE TRIG IS LESS THAN 400. Performed By: #### 4 1000, 73552, 01496, 07145, 18672, 41183 ####[facility] [facility] [address], [facility] Cholesterol mass conc 122 mg/dL Normal 120-200 [facility] Comment on above: Result Comment: CHOL ESTEROL REFERENCE RANGE:20 YEARS AND OLDER CARDIOVASCULAR RISKLess than 200 mg/dl Low Fdnw632 to 239 mg/dl Borderline Nvgp276 mg/dl and greater High Risk Performed By: #### 4 1000, 82074, 63116, 24252, 41270, 69334 ####[facility] [place] [address], [facility] Cholesterol.total/Cho lesterol in HDL mass ratio 2.5 {ratio} Normal .0-4.5 [facility] Comment on above: Performed By: #### 4 1000, 31633, 48472, 31931, 30643, 43341 ####[facility], [place] [id number] [place] [address] NON-HDL CHOLESTEROL 73 mg/dL Normal [facility] Comment on above: Performed By: #### 4 1000, 22934, 13830, 65968, 88861, 81989 ####[facility] Triglyceride mass conc 106 mg/dL Normal 40-149 [facility] Comment on above: Result Comment: TRIG LYCERIDE REFERENCE RANGE:20 YEARS AND OLDER CARDIOVASCULAR RISKLESS THAN 150 mg/dl LOW [id number] TO 199 mg/dl BORDERLINE NNAV367 mg/dl AND GREATER HIGH RISK Performed By: #### 4 1000, 29373, 96865, 90075, 75343, 27400 ####[facility] VLDL CHOL 21 mg/dL Normal 0-40 [facility] Comment on above: Performed By: #### 4 1000, 64510, 53584, 47090, 15578, 25375 ####[facility] [place] [address], [facility] MAGNESIUM BLOODon 04-29-2017 Magnesium mass conc 2.1 mg/dL Normal 1.9-2.7 [facility] Comment on above: Performed By: #### 4 1000, 69390, 65712, 52873, 83414, 72249 ####[facility] [place] [address], [facility] PHOSPHORUS BLOODon 8 Phosphate mass conc 3.3 mg/dL Normal 2.5-5.0 [facility] Comment on above: Performed By: #### 4 1000, 20244, 46708, 14140, 24636, 34199 ####[facility] TACROLIMUSon 04-29-2017 Tacrolimus mass conc (Bld) 4.6 ng/mL Low 5.0-20.0 [facility] Comment on above: Result Comment: The [employer] MOBILE COORDINATOR Tacrolimus assay is a delayed one-step immunoassayfor the quantitative determination of tacrolimus in human whole bloodusing the chemiluminescent microparticle immunoassay (CMIA) technologywith flexible assay protocols, referred to as Chemiflex. Performed By: #### 4 1000, 21837, 09946, 96484, 18121, 71157 ####[facility] [facility].[address] URIC ACID BLOODon 04-29-2017 Urate mass conc 4.6 mg/dL Normal 2.3-6.6 [facility] Comment on above: Performed By: #### 4 1000, 04121, 17916, 97480, 65601, 65184 ####[facility] [facility].[address] CBC W/DIFFon 03-27-2017 Basophils Auto #/vol (Bld) 0.2 % Normal 0.0-2.0 [facility] Comment on above: Performed By: #### 4 1000, 77149, 39973, 51068, 82760, 47977 ####[facility] [facility].[address] Eosinophils/100 WBC Auto (Bld) 1.8 % Normal 0.0-5.0 [facility] Comment on above: Performed By: #### 4 1000, 93116, 45245, 97936, 86125, 13811 ####[facility] [facility] [place] [address], [place] Erythrocyte distribution width Auto Ratio (RBC) 13.6 % Normal 11.5-16.9 [facility] Comment on above: Performed By: #### 4 1000, 83762, 15996, 68610, 32240, 82607 ####[facility] Hematocrit Auto Volume Fraction (Bld) 47.6 % Normal 36.0-48.0 [facility] Comment on above: Performed By: #### 4 1000, 87861, 34145, 97270, 77320, 08480 ####[facility] Hemoglobin mass conc (Bld) 15.8 g/dL High 12.0-15.0 [facility] Comment on above: Performed By: #### 4 1000, 38031, 45982, 63183, 77265, 93788 ####[facility] Lymphocytes/100 WBC Auto (Bld) 14.5 % Low 20.0-40.0 [facility] Comment on above: Performed By: #### 4 1000, 95078, 82368, 87391, 19669, 20403 ####[facility] MCH Auto Entitic mass (RBC) 29.0 pg Normal 24.0-32.0 [facility] Comment on above: Performed By: #### 4 1000, 16468, 29160, 96644, 04877, 44725 ####[facility] [place] [address], [facility] MCHC Auto mass conc (RBC) 33.3 g/dL Normal 32.0-36.0 [facility] Comment on above: Performed By: #### 4 1000, 91441, 91737, 33601, 41304, 63905 ####[facility] MCV Auto Entitic volume (RBC) 87.4 fL Normal 80.0-100.0 [facility] Comment on above: Performed By: #### 4 1000, 39388, 80372, 85310, 40540, 39577 ####[facility] METHOD Normal RBC Morphology Normal [facility] Comment on above: Performed By: #### 4 1000, 94104, 40819, 40408, 61803, 52391 ####[facility] MONOS 9.6 % High 2-8 [facility] Comment on above: Performed By: #### 4 1000, 08092, 20371, 48759, 93606, 97415 ####[facility] Neutrophils/100 WBC Auto (Bld) 73.9 % High 50-70 [facility] Comment on above: Performed By: #### 4 1000, 35082, 49348, 25689, 72875, 07547 ####[facility] PLAT CNT 228 Thou/mm3 Normal 100-400 [facility] Comment on above: Performed By: #### 4 1000, 76439, 12939, 53768, 60592, 94561 ####[facility] RBC Auto #/vol (Bld) 5.45 mill/mm3 Normal 3.50-5.50 [facility] Comment on above: Performed By: #### 4 1000, 85462, 53271, 30774, 92221, 45905 ####[facility] WBC Auto #/vol (Bld) 6.5 Thou/mm3 Normal 4.0-10.0 [facility] Comment on above: Performed By: #### 4 1000, 73621, 07331, 55272, 86462, 47121 ####[facility] COMP METABOLIC PANELon 03-27 Albumin mass conc 4.7 g/dL Normal 3.5-5.7 [facility] Comment on above: Performed By: #### 4 1000, 94511, 48158, 99933, 93326, 53996 ####[facility] [place] [address], [facility] ALKALINE PHOSPH 99 IU/L Normal 34-104 [facility] Comment on above: Performed By: #### 4 1000, 12783, 70243, 65699, 83123, 54733 ####[facility] ALT enzyme act/vol 19 U/L Normal 7-52 [facility] Comment on above: Performed By: #### 4 1000, 17159, 15025, 08651, 32526, 20118 ####[facility] AST enzyme act/vol 21 U/L Normal 13-39 [facility] Comment on above: Performed By: #### 4 1000, 99802, 56994, 40082, 54820, 83392 ####[facility] [place] [address], [facility] Bilirubin mass conc 0.6 mg/dL Normal 0.3-1.0 [facility] Comment on above: Performed By: #### 4 1000, 51119, 92889, 46854, 66817, 38474 ####[facility] [place] [address], [facility] Calcium mass conc 10.2 mg/dL Normal 8.6-10.3 [facility] Comment on above: Performed By: #### 4 1000, 17547, 40873, 04408, 30956, 43628 ####[facility] [place] [address], [place] Chloride molar conc 104 mmol/L Normal 98-107 [facility] Comment on above: Performed By: #### 4 1000, 00343, 41041, 61197, 66800, 88669 ####[facility] [place] [address], [place] CO2 molar conc 28 mmol/L Normal 21-31 [facility] Comment on above: Performed By: #### 4 1000, 80148, 06575, 14281, 55646, 87209 ####[facility] [place] [address], [place] Creatinine mass conc 0.78 mg/dL Normal 0.60-1.20 [facility] Comment on above: Performed By: #### 4 1000, 75390, 31397, 85780, 52693, 12550 ####[facility] [place] [address], [place] GFR/1.73 sq M predicted among blacks MDRD vol rate/area (S/P/Bld) mL/min/{1.73_m2} Normal >[address] [facility] Comment on above: Performed By: #### 4 1000, 03801, 68660, 89300, 47622, 66338 ####[facility] [place] [address], [place] GFR/1.73 sq M predicted among non-blacks MDRD vol rate/area (S/P/Bld) mL/min/{1.73_m2} Normal >[address] [facility] Comment on above: Performed By: #### 4 1000, 47050, 34987, 34150, 85583, 35576 ####[facility] [place] [address], [facility] Glucose mass conc 87 mg/dL Normal 70-100 [facility] Comment on above: Performed By: #### 4 1000, 21593, 00445, 85638, 90553, 95824 ####[facility] [place] [address], [facility] Potassium molar conc 4.1 mmol/L Normal 3.5-5.1 [facility] Comment on above: Performed By: #### 4 1000, 55826, 13252, 66394, 88631, 96490 ####[facility] [place] [address], [facility] Protein mass conc 7.8 g/dL Normal 6.0-8.3 [facility] Comment on above: Performed By: #### 4 1000, 68018, 38457, 97513, 97049, 73027 ####[facility] [place] [address], [facility] Sodium molar conc 139 mmol/L Normal 136-145 [facility] Comment on above: Performed By: #### 4 1000, 95804, 34579, 22581, 65430, 49959 ####[facility] [place] [address], [facility] Urea nitrogen mass conc 19 mg/dL Normal 7-25 [facility] Comment on above: Performed By: #### 4 1000, 29159, 44385, 13637, 08631, 11078 ####[facility] [place] [address], [facility] DIRECT BILIon 03-27-2017 Bilirubin.direct mass conc 0.1 mg/dL Normal 0.0-0.2 [facility] Comment on above: Performed By: #### 4 1000, 52986, 95002, 66830, 43187, 85319 ####[facility] [place] [address], [facility] EVEROLIMUS [id number] 7 EVEROLIMUS 5.3 ng/mL Normal [facility] Comment on above: Result Comment: Ther [...] the transplantcenter.Test developed and characteristics determined by [employer]. See Compliance Statement B: [employer]/CSPerformed by [employer],[address] [place] [address] 13264 mzz.[employer], Leonid Antonio MD - Lab. Director LIPID PROFILEon 03-27-2017 Cholesterol in HDL mass conc 50 mg/dL Normal 23-92 [facility] Comment on above: Result Comment: Slig ht variation in normal range could be due to gender and/or age.HDL CHOLESTEROL REFERENCE RANGE:20 years and older Cardiovascular Risk> or =60 mg/dL Qkgzcpzgd06 TO 59 mg/dL Low Risk<40 mg/dL High Risk Performed By: #### 4 1000, 15198, 01231, 97391, 96540, 43487 ####[facility] [place] [address], [facility] Cholesterol in LDL mass conc 66 mg/dL Normal 0-130 [facility] Comment on above: Result Comment: LDL IS A CALCULATIONLDL IS ONLY VALID IF THE TRIG IS LESS THAN 400. Performed By: #### 4 1000, 05894, 55966, 92020, 72655, 27315 ####[facility] [place] [address], [facility] Cholesterol mass conc 147 mg/dL Normal 120-200 [facility] Comment on above: Result Comment: CHOL ESTEROL REFERENCE RANGE:20 YEARS AND OLDER CARDIOVASCULAR RISKLess than 200 mg/dl Low Dura872 to 239 mg/dl Borderline Uwpe991 mg/dl and greater High Risk Performed By: #### 4 1000, 57991, 21860, 60110, 94176, 03719 ####[facility] [place] [address], [facility] Cholesterol.total/Cho lesterol in HDL mass ratio 2.9 {ratio} Normal .0-4.5 [facility] Comment on above: Performed By: #### 4 1000, 04328, 68558, 58675, 89437, 65903 ####[facility] [place] [address], [facility] NON-HDL CHOLESTEROL 97 mg/dL Normal [facility] Comment on above: Performed By: #### 4 1000, 24329, 82600, 62533, 78033, 86999 ####[facility] [place] [address], [facility] Triglyceride mass conc 157 mg/dL High 40-149 [facility] Comment on above: Result Comment: TRIG LYCERIDE REFERENCE RANGE:20 YEARS AND OLDER CARDIOVASCULAR RISKLESS THAN 150 mg/dl LOW [id number] TO 199 mg/dl BORDERLINE [id number] mg/dl AND GREATER HIGH RISK Performed By: #### 4 1000, 42489, 44719, 85112, 41201, 68142 ####[facility] [place] [address], [facility] VLDL CHOL 31 mg/dL Normal 0-40 [facility] Comment on above: Performed By: #### 4 1000, 07643, 79741, 91698, 29664, 35796 ####[facility] [facility].[address] MAGNESIUM BLOODon 03-27-2017 Magnesium mass conc 1.9 mg/dL Normal 1.9-2.7 [facility] Comment on above: Performed By: #### 4 1000, 89082, 22071, 30395, 61959, 54001 ####[facility] [place] [address], [facility] PHOSPHORUS BLOODon 7 Phosphate mass conc 3.4 mg/dL Normal 2.5-5.0 [facility] Comment on above: Performed By: #### 4 1000, 56392, 82266, 79808, 97460, 40970 ####[facility] [facility].[address] TACROLIMUSon 03-27-2017 Tacrolimus mass conc (Bld) 3.7 ng/mL Low 5.0-20.0 [facility] Comment on above: Result Comment: The [employer] MOBILE COORDINATOR Tacrolimus assay is a delayed one-step immunoassayfor the quantitative determination of tacrolimus in human whole bloodusing the chemiluminescent microparticle immunoassay (CMIA) technologywith flexible assay protocols, referred to as Chemiflex. Performed By: #### 4 1000, 20239, 53134, 38035, 16195, 96491 ####[facility] [facility].[address] URIC ACID BLOODon 03-27-2017 Urate mass conc 4.1 mg/dL Normal 2.3-6.6 [facility] Comment on above: Performed By: #### 4 1000, 03225, 54302, 72739, 80853, 75992 ####[facility] [facility].[address] BK VIRUS QUANTITATION PCR BL OODon 02-26-2017 BKV QUANT PCR Not detected Normal [facility] Comment on above: Result Comment: Meth od: BK virus was measured by quantitative polymerase chain reactionusing a TaqMan probe targeting the polyomavirus BK EXERCISE RIDER-1 gene.The lower limit of quantitation of the assay is 500 copies of BK genomeper milliliter of plasma or urine, and any detectable BK DNA below thatlevel is reported as: Detected, <500 copies/ml. Serial BK virusmeasurement can be used to monitor disease activity. (Reference:Kelsie vaughanl. J CLIN MICRO 2004; 42:3958-2397).This test was developed and its performance characteristics determinedby the [facility]. It has not been approvedby the [place] Food and Drug Administration. However, such approval is notrequired for clinical implementation, and test results have been shownto be clinically useful. This laboratory is CAP accredited and CLIAcertified to perform high complexity testing. Performed By: #### 4 1000, 91978, 27928, 10981, 08412, 07110 ####[address] LOG 10 COPIES Not detected Normal [facility] Comment on above: Performed By: #### 4 1000, 56343, 81187, 13978, 72296, 52466 ####[address] CBC W/DIFFon 02-26-2017 Basophils Auto #/vol (Bld) 0.3 % Normal 0.0-2.0 [facility] Comment on above: Performed By: #### 5 0103 ####[place] [id number] [address] Eosinophils/100 WBC Auto (Bld) 2.2 % Normal 0.0-5.0 [facility] Comment on above: Performed By: #### 5 0103 ####[address] Erythrocyte distribution width Auto Ratio (RBC) 13.8 % Normal 11.5-16.9 [facility] Comment on above: Performed By: #### 5 3 ####[facility]3000 [facility].[address] Hematocrit Auto Volume Fraction (Bld) 44.9 % Normal 36.0-48.0 [facility] Comment on above: Performed By: #### 3 ####[facility] [facility].[address] Hemoglobin mass conc (Bld) 15.0 g/dL Normal 12.0-15.0 [facility] Comment on above: Performed By: #### 3 ####[facility] [place] [address], [facility] Lymphocytes/100 WBC Auto (Bld) 18.9 % Low 20.0-40.0 [facility] Comment on above: Performed By: #### 3 ####[facility] [facility].[address] MCH Auto Entitic mass (RBC) 28.9 pg Normal 24.0-32.0 [facility] Comment on above: Performed By: #### 5 3 ####[facility] [facility].[address] MCHC Auto mass conc (RBC) 33.4 g/dL Normal 32.0-36.0 [facility] Comment on above: Performed By: #### 5 3 ####[facility] [place] [address], [facility] MCV Auto Entitic volume (RBC) 86.6 fL Normal 80.0-100.0 [facility] Comment on above: Performed By: #### 5 3 ####[facility] [place] [address], [facility] METHOD Normal RBC Morphology Normal [facility] Comment on above: Performed By: #### 5 3 ####[facility] [place] [address], [facility] MONOS 11.7 % High 2-8 [facility] Comment on above: Performed By: #### 5 0103 ####[facility] [place] [address], [facility] Neutrophils/100 WBC Auto (Bld) 66.9 % Normal 50-70 [facility] Comment on above: Performed By: #### 5 0103 ####[facility] [place] [address], [facility] PLAT CNT 230 Thou/mm3 Normal 100-400 [facility] Comment on above: Performed By: #### 5 0103 ####[facility] [facility] [place] [address], [facility] RBC Auto #/vol (Bld) 5.18 mill/mm3 Normal 3.50-5.50 [facility] Comment on above: Performed By: #### 5 0103 ####[facility] [facility] [place] [place] [address], [facility] WBC Auto #/vol (Bld) 5.8 Thou/mm3 Normal 4.0-10.0 [facility] Comment on above: Performed By: #### 5 0103 ####[facility]3000 [facility].[address] COMP METABOLIC PANELon 02-26 Albumin mass conc 4.7 g/dL Normal 3.5-5.7 [facility] Comment on above: Performed By: #### 4 1000, 03872, 23970, 84483, 91930, 24311 ####[facility] [place] [address], [facility] ALKALINE PHOSPH 115 IU/L High 34-104 [facility] Comment on above: Performed By: #### 4 1000, 28734, 72560, 26947, 12355, 56899 ####[facility] [place] [address], [place] ALT enzyme act/vol 18 U/L Normal 7-52 [facility] Comment on above: Performed By: #### 4 1000, 33351, 76044, 42142, 61321, 60382 ####[facility] [place] [address], [place] AST enzyme act/vol 22 U/L Normal 13-39 [facility] Comment on above: Performed By: #### 4 1000, 19896, 41293, 13001, 25617, 21210 ####[facility] [place] [address], [place] Bilirubin mass conc 0.6 mg/dL Normal 0.3-1.0 [facility] Comment on above: Performed By: #### 4 1000, 88393, 73096, 84910, 14350, 86784 ####[facility] [place] [address], [place] Calcium mass conc 9.8 mg/dL Normal 8.6-10.3 [facility] Comment on above: Performed By: #### 4 1000, 81652, 89091, 74096, 70742, 71859 ####[facility] [place] [address], [place] Chloride molar conc 103 mmol/L Normal 98-107 [facility] Comment on above: Performed By: #### 4 1000, 41796, 85749, 37322, 56678, 66126 ####[facility] [place] [address], [place] CO2 molar conc 29 mmol/L Normal 21-31 [facility] Comment on above: Performed By: #### 4 1000, 26285, 86364, 57392, 34188, 76668 ####[facility] [place] [address], [facility] Creatinine mass conc 0.78 mg/dL Normal 0.60-1.20 [facility] Comment on above: Performed By: #### 4 1000, 91723, 79041, 88715, 71051, 84237 ####[facility] [place] [address], [place] GFR/1.73 sq M predicted among blacks MDRD vol rate/area (S/P/Bld) mL/min/{1.73_m2} Normal >[address] [facility] Comment on above: Performed By: #### 4 1000, 73948, 79586, 92913, 05696, 42412 ####[facility] [place] [address], [facility] GFR/1.73 sq M predicted among non-blacks MDRD vol rate/area (S/P/Bld) mL/min/{1.73_m2} Normal >[address] [facility] Comment on above: Performed By: #### 4 1000, 88087, 70560, 46337, 10637, 26544 ####[facility] [place] [address], [facility] Glucose mass conc 94 mg/dL Normal 70-100 [facility] Comment on above: Performed By: #### 4 1000, 83762, 47130, 57935, 43332, 54118 ####[facility] [place] [address], [place] Potassium molar conc 3.8 mmol/L Normal 3.5-5.1 [facility] Comment on above: Performed By: #### 4 1000, 58527, 28328, 11982, 33316, 34564 ####[facility] [place] [address], [place] Protein mass conc 7.4 g/dL Normal 6.0-8.3 [facility] Comment on above: Performed By: #### 4 1000, 43362, 53018, 69106, 09916, 67583 ####[facility] Sodium molar conc 136 mmol/L Normal 136-145 [facility] Comment on above: Performed By: #### 4 1000, 06580, 27087, 79102, 52608, 16639 ####[facility] Urea nitrogen mass conc 19 mg/dL Normal 7-25 [facility] Comment on above: Performed By: #### 4 1000, 43240, 09748, 50940, 72696, 56718 ####[facility] DIRECT BILIon 02-26-2017 Bilirubin.direct mass conc 0.1 mg/dL Normal 0.0-0.2 [facility] Comment on above: Performed By: #### 4 1000, 90814, 09054, 72527, 62360, 92843 ####[facility] EVEROLIMUS 32722fy 7 EVEROLIMUS 5.9 ng/mL Normal [facility] Comment on above: Result Comment: Ther [...] the transplantcenter.Test developed and characteristics determined by [facility]. See Compliance Statement B: [employer]/CSPerformed by [facility],[address] [place] [address] cob.[employer], Leonid Antonio MD - Lab. Director HEMOGLOBIN A1Con 02-26-2017 Glucose mass conc 108 mg/dL Normal 70-126 [facility] Comment on above: Performed By: #### 4 6447, 78449 ####[facility] Hemoglobin A1c/Hemoglobin.total mass fraction (Bld) 5.4 % Normal 4.0-6.0 The [facility] Comment on above: Performed By: #### 4 6447, 87234 ####[facility] [facility].[address] LIPID PROFILEon 02-26-2017 Cholesterol in HDL mass conc 54 mg/dL Normal 23-92 [facility] Comment on above: Result Comment: Slig ht variation in normal range could be due to gender and/or age.HDL CHOLESTEROL REFERENCE RANGE:20 years and older Cardiovascular Risk> or =60 mg/dL Thtnfwozt57 TO 59 mg/dL Low Risk<40 mg/dL High Risk Performed By: #### 4 1000, 75850, 25116, 02159, 61312, 99407 ####[facility] [place] [address], [facility] Cholesterol in LDL mass conc 70 mg/dL Normal 0-130 [facility] Comment on above: Result Comment: LDL IS A CALCULATIONLDL IS ONLY VALID IF THE TRIG IS LESS THAN 400. Performed By: #### 4 1000, 06165, 95873, 01701, 51536, 68611 ####[facility] [place] [address], [facility] Cholesterol mass conc 144 mg/dL Normal 120-200 [facility] Comment on above: Result Comment: CHOL ESTEROL REFERENCE RANGE:20 YEARS AND OLDER CARDIOVASCULAR RISKLess than 200 mg/dl Low Ihgb088 to 239 mg/dl Borderline Ypdl070 mg/dl and greater High Risk Performed By: #### 4 1000, 04847, 86733, 60882, 92247, 70853 ####[facility] [place] [address], [facility] Cholesterol.total/Cho lesterol in HDL mass ratio 2.7 {ratio} Normal .0-4.5 [facility] Comment on above: Performed By: #### 4 1000, 81497, 51549, 81308, 01264, 35147 ####[facility] NON-HDL CHOLESTEROL 90 mg/dL Normal The [facility] Comment on above: Performed By: #### 4 1000, 46231, 69341, 07826, 98055, 42700 ####[facility] [facility] [place] [address], [facility] Triglyceride mass conc 101 mg/dL Normal 40-149 [facility] Comment on above: Result Comment: TRIG LYCERIDE REFERENCE RANGE:20 YEARS AND OLDER CARDIOVASCULAR RISKLESS THAN 150 mg/dl LOW [id number] TO 199 mg/dl BORDERLINE [id number] mg/dl AND GREATER HIGH RISK Performed By: #### 4 1000, 43167, 90931, 71802, 52666, 82139 ####[facility] [place] [address], [facility] VLDL CHOL 20 mg/dL Normal 0-40 [facility] Comment on above: Performed By: #### 4 1000, 43566, 52702, 73580, 41764, 77042 ####[facility] [place] [address], [facility] MAGNESIUM BLOODon 11-29-2017 Magnesium mass conc 1.9 mg/dL Normal 1.9-2.7 [facility] Comment on above: Performed By: #### 4 1000, 93204, 38707, 42305, 72248, 17026 ####[facility] PHOSPHORUS BLOODon 7 Phosphate mass conc 4.1 mg/dL Normal 2.5-5.0 [facility] Comment on above: Performed By: #### 4 1000, 43691, 58274, 46537, 53646, 86933 ####[facility] TACROLIMUSon 02-26-2017 Tacrolimus mass conc (Bld) 4.2 ng/mL Low 5.0-20.0 [facility] Comment on above: Result Comment: The [employer] DENTAL HYGIENIST MOBILE COORDINATOR Tacrolimus assay is a delayed one-step immunoassayfor the quantitative determination of tacrolimus in human whole bloodusing the chemiluminescent microparticle immunoassay (CMIA) technologywith flexible assay protocols, referred to as Chemiflex. Performed By: #### 4 6447, 45301 ####[facility] URIC ACID BLOODon 02-26-2017 Urate mass conc 4.3 mg/dL Normal 2.3-6.6 The [facility] Comment on above: Performed By: #### 4 1000, 73231, 52022, 18344, 09778, 54766 ####[facility] Vital Signs Date Time Vital Sign Value Performing Clinician Facility 08-30-2023 09:040 Body height 182.88 cm [facility] 08-30-2023 09:0400 Body mass index (BMI) [Ratio] 17.9 kg/m2 [facility] 08-30-2023 09: Body temperature 99.8 [degF] [facility] 08-30-2023 09:22-0400 Body weight 59.87 kg [facility] 08-30-2023 09:22-0400 Diastolic blood pressure 73 mm[Hg] [facility] 08-30-2023 09:22-0400 Heart rate 67 /min [facility] 08-30-2023 09:22-0400 SaO2% (BldA) [Mass fraction] 95 % [facility] 08-30-2023 09:22-0400 Systolic blood pressure 111 mm[Hg] [facility] 03-27-2023 11:30-0500 Body height 152.4 cm Cathy Bella Other [facility] Other 03-27-2023 11:30-0500 Body mass index (BMI) [Ratio] 25.39 kg/m2 Cathy Bella Other [facility] Other 03-27-2023 11:30-0500 Body temperature 97.5 [degF] Cathy Bella Other [facility] Other 03-27-2023 11:30-0500 Body weight 58.97 kg Cathy Bella Other [facility] Other 03-27-2023 11:30-0500 Respiratory rate 18 /min Cathy Bella Other [facility] Other 03-27-2023 11:30-0500 SaO2% (BldA) [Mass fraction] 96 % Cathy Bella Other [facility] Other 09-21-2022 09:00-0400 Body height 152.4 cm Martha Guevara Other [facility] Other 09-21-2022 09:00-0400 Body mass index (BMI) [Ratio] 22.46 kg/m2 Martha Guevara Other [facility] Other 09-21-2022 09:00-0400 Body temperature 97.6 [degF] Martha Guevara Other [facility] Other 09-21-2022 09:00-0400 Body weight 52.16 kg Martha Guevara Other [facility] Other 09-21-2022 09:00-0400 Diastolic blood pressure 70 mm[Hg] Martha Guevara Other [facility] Other 09-21-2022 09:00-0400 Respiratory rate 18 /min Martha Guevara Other [facility] Other 09-21-2022 09:00-0400 SaO2% (BldA) [Mass fraction] 96 % Martha Guevara Other [facility] Other 09-21-2022 09:00-0400 Systolic blood pressure 107 mm[Hg] Martha Guevara Other [facility] Other 01-12-2022 13:55-0400 Body height 152.4 cm Cathy Bella Other [facility] Other 01-12-2022 13:55-0400 Body mass index (BMI) [Ratio] 19.53 kg/m2 Cathy Bella Other [facility] Other 01-12-2022 13:55-0400 Body temperature 96.9 [degF] Cathy Bella Other [facility] Other 01-12-2022 13:55-0400 Body weight 45.36 kg Cathy Bella Other [facility] Other 01-12-2022 13:55-0400 Respiratory rate 18 /min Cathy Bella Other [facility] Other 01-12-2022 13:55-0400 SaO2% (BldA) [Mass fraction] 97 % Cathy Bella Other [facility] Other 12-28-2021 10:20-0400 Body height 152.4 cm Martha Guevara Other [facility] Other 12-28-2021 10:20-0400 Body mass index (BMI) [Ratio] 21.48 kg/m2 Martha Paola Other [facility] Other 12-28-2021 10:20-0400 Body temperature 98 [degF] Martha Smithmond Other [facility] Other 12-28-2021 10:20-0400 Body weight 49.9 kg Martha Smithmond Other [facility] Other 12-28-2021 10:20-0400 Respiratory rate 18 /min Martha Smithmond Other [facility] Other 12-28-2021 10:20-0400 SaO2% (BldA) [Mass fraction] 97 % Martha Paola Other [facility] Other 12-25-2021 10:05-0400 Body height 152.4 cm Cathy Bella Other [facility] Other 12-25-2021 10:05-0400 Body mass index (BMI) [Ratio] 21.48 kg/m2 Cathy Bella Other [facility] Other 12-25-2021 10:05-0400 Body temperature 96 [degF] Cathy Bella Other [facility] Other 12-25-2021 10:05-0400 Body weight 49.9 kg Cathy Bella Other [facility] Other 12-25-2021 10:05-0400 Respiratory rate 18 /min Cathy Bella Other [facility] Other 12-25-2021 10:05-0400 SaO2% (BldA) [Mass fraction] 97 % Cathy Bella Other [facility] Other 10-27-2021 12:35-0400 Body height 152.4 cm Cathy Bella Other [facility] Other 10-27-2021 12:35-0400 Body mass index (BMI) [Ratio] 22.85 kg/m2 Cathy Bella Other [facility] Other 10-27-2021 12:35-0400 Body weight 53.07 kg Cathy Bella Other [facility] Other 10-27-2021 12:35-0400 Diastolic blood pressure 87 mm[Hg] Cathy Bella Other [facility] Other 10-27-2021 12:35-0400 SaO2% (BldA) [Mass fraction] 98 % Cathy Bella Other [facility] Other 10-27-2021 12:35-0400 Systolic blood pressure 130 mm[Hg] Cathy Bella Other [facility] Other 08-14-2021 10:40-0400 Body height 152.4 cm Martha Guevara Other [facility] Other 08-14-2021 10:40-0400 Body mass index (BMI) [Ratio] 22.46 kg/m2 Martha Guevara Other [facility] Other 08-14-2021 10:40-0400 Body temperature 96.7 [degF] Martha Guevara Other [facility] Other 08-14-2021 10:40-0400 Body weight 52.16 kg Martha Guevara Other [facility] Other 08-14-2021 10:40-0400 Diastolic blood pressure 68 mm[Hg] Martha Guevara Other [facility] Other 08-14-2021 10:40-0400 Respiratory rate 20 /min Martha Guevara Other [facility] Other 08-14-2021 10:40-0400 SaO2% (BldA) [Mass fraction] 98 % Martha Guevara Other [facility] Other 08-14-2021 10:40-0400 Systolic blood pressure 144 mm[Hg] Martha Paola Other [facility] Other Encounters Encounter Date Encounter Type Care Provider Facility Start: 09-23-2023 End: 09-23-2023 ambulatory VIRGIL HAYNES [facility] Start: 09-02-2023 End: 09-02-2023 ambulatory ESTER Townsend HEMMER Not Available Start: 08-30-2023 End: 08-30-[address] [facility] Work Phone: Start: 08-30-2023 End: 08-30-2023 Patient encounter procedure [facility]ly [facility] Work Phone: Start: 04-02-2023 End: 04-02-2023 ambulatory RAMON CARROLL Not Available Start: 03-27-2023 End: 03-27-2023 ambulatory Cathy Bella Other [facility] Other Start: 03-27-2023 Office outpatient visit 25 minutes Cathy Bella [facility] Start: 03-17-2023 End: 03-17-2023 ambulatory VIRGIL [facility] Start: 03-06-2023 End: 03-06-2023 ambulatory ESTER Townsend HEMMER Not Available Start: 02-12-2023 End: 02-12-2023 ambulatory ESTER Townsend HEMMER Not Available Start: 09-21-2022 End: 09-21-2022 ambulatory Martha Guevara Other [facility] Other Start: 09-21-2022 Office outpatient visit 15 minutes Martha Guevara [facility] Start: 08-12-2022 End: [...] Start: 01-28-2022 End: 01-29-[address] DOCTOR MISC Facility:[facility] Start: 01-12-2022 End: 01-12-2022 ambulatory aCthy Bella Other [facility] Other Start: 01-12-2022 Office outpatient visit 15 minutes Cathy Bella [facility] Start: 01-07-2022 End: 01-07-2022 ambulatory ISATU GUAMAN . Facility:[facility] Start: 01-03-2022 End: 01-04-[address] VIRGIL SWIFT Facility:[facility] Start: 12-28-2021 End: 12-28-2021 ambulatory Martha Guevara Other [facility] Other Start: 12-28-2021 Office outpatient visit 15 minutes Marthajd Guevara [facility] Start: 12-25-2021 End: 12-25-2021 ambulatory Ctahy Bella Other [facility] Other Start: 12-25-2021 Office outpatient visit 25 minutes Cathy Bella [facility] Start: 12-05-2021 End: 12-06-2021 ambulatory DOCTOR MISC Facility:[facility] Start: 11-07-2021 End: 11-08-2021 ambulatory DOCTOR MISC Facility:[facility] Start: 10-27-2021 End: 10-27-2021 ambulatory Cathy Bella Other [facility] Other Start: 10-27-2021 Office outpatient visit 15 minutes Cathy Bella [facility] Start: 10-15-2021 End: 10-16-[address] DOCTOR MISC Facility:[facility] Start: 10-08-2021 End: 10-09-[address] DOCTOR MISC Facility:[facility] Start: 09-10-2021 End: 09-11-[address] DOCTOR MISC Facility:[facility] Start: 08-14-2021 End: 08-14-2021 ambulatory Martha Guevara Other [facility] Other Start: 08-14-2021 Office outpatient visit 15 minutes Martha Guevara [facility] Start: 12-31-2017 End: 01-01-2018 Patient encounter VIRGIL HAYNES Facility:[facility] Start: 12-25-2017 End: 12-26-2017 Patient encounter ROSALINDA ROSENBAUM Facility:[facility] Start: 10-30-2017 End: 10-31-2017 Patient encounter ROSALINDA ROSENBAUM Facility:[facility] Start: 10-23-2017 End: 10-24-2017 Patient encounter ROSALINDA ROSENBAUM Facility:[facility] Start: 09-25-2017 End: 09-26-2017 Patient encounter ROSALINDAMAGDALENO ROSENBAUM Facility:[facility] Start: 08-26-2017 End: 08-27-2017 Patient encounter ROSALINDAMAGDALENO ROSNEBAUM Facility:[facility] Start: 07-23-2017 End: 07-24-2017 Patient encounter ROSALINDA ROSENBAUM Facility:[facility] Start: 06-20-2017 End: 06-21-2017 Patient encounter ROSALINDA ROSENBAUM Facility:[facility] Start: 05-27-2017 End: 05-28-2017 Patient encounter ROSALINDA ROSENBAUM Facility:[facility] Start: 04-29-2017 End: 04-30-2017 Patient encounter ROSALINDA ROSENBAUM Facility:[facility] Start: 03-27-2017 End: 03-28-2017 Patient encounter ROSALINDA ROSENBAUM Facility:[facility] Start: 02-26-2017 End: 02-27-2017 Patient encounter DOE BRIDGES Facility:[facility] Procedures Date Procedure Procedure Detail Performing Clinician Start: 08-30-2023 Quick Strep (POC) Start: 08-14-2021 Piperacillin/tazobactam Martha Guevara Other Immunizations Immunization Date Immunization Notes Care Provider Heri fatima 03-16-2009 influenza virus vaccine, split virus (incl. purified surface antigen) Martha Guevara Other [facility] Other 03-16-2009 influenza virus vaccine, unspecified formulation [facility] Payers Date Payer Category Payer [facility] [id number] 1959 Self-pay 1959 Unknown [id number] 1956 Unknown [id number] 2.16.8 40.1.783156.3.579.2.647 1956 Unknown [id number] 2.16.8 40.1.059354.3.579.2.647 1956 Unknown [id number] 2.16.8 40.1.838375.3.579.2.647 1956 Unknown [id number] 2.16.8 40.1.265811.3.579.2.647 1956 Unknown [id number] 2.16.8 40.1.224858.3.579.2.647 1956 Unknown [id number] 2.16.8 40.1.566862.3.579.2.647 1956 Unknown [id number] 2.16.8 40.1.533653.3.579.2.647 1956 Unknown [id number] 2.16.8 40.1.873907.3.579.2.647 1956 Unknown [id number] 2.16.8 40.1.206771.3.579.2.647 1956 Unknown [id number] 2.16.8 40.1.212768.3.579.2.647 1956 Unknown [id number] 2.16.8 40.1.664615.3.579.2.647 1956 Unknown [id number] 2.16.8 40.1.942549.3.579.2.647 1956 Unknown [id number] 2.16.84 0.1.175665.3.579.2.593 1956 Unknown [id number] 2.16.84 0.1.649707.3.579.2.593 1956 Unknown [id number] 2.16.84 0.1.085618.3.579.2.593 1956 Unknown [id number] 2.16.84 0.1.238149.3.579.2.593 1956 Unknown [id number] 2.16.84 0.1.444277.3.579.2.593 1956 Unknown [id number] 2.16.84 0.1.975906.3.579.2.593 1956 Unknown [id number] 2.16.84 0.1.455635.3.579.2.593 1956 Unknown [id number] 2.16.84 0.1.186733.3.579.2.593 1956 Unknown [id number] 2.16.84 0.1.089288.3.579.2.593 1956 Unknown [id number] 2.16.84 0.1.250874.3.579.2.593 1956 Unknown [id number] 2.16.84 0.1.205793.3.579.2.593 1956 Unknown [id number] 2.16.84 0.1.784918.3.579.2.593 1956 Unknown [id number] 2.16.84 0.1.031684.3.579.2.593 1956 Unknown [id number] 2.16.84 0.1.318920.3.579.2.593 1956 Unknown [id number] 2.16.84 0.1.657897.3.579.2.593 1956 Unknown [id number] 2.16.84 0.1.583995.3.579.2.1259 1956 Unknown [id number] 2.16.840 .1.479265.3.579.2.1259 1956 Unknown [id number] 2.16.840 .1.694084.3.579.2.1259 1956 Unknown [id number] 2.16.840 .1.680433.3.579.2.1259 Unknown [id number] 2.16.84 0.1.733937.3.579.2.593 Unknown Amy BC/BS [id number] Social History Date Type Detail Facility Unknown if ever smoked [facility] Other Sex Assigned At Sex Assigned At Bir th Zooomr [facility] Other Start: 08-30-2023 Tobacco smoking status NHIS Never smoked tobacco (finding) [facility] Start: 1955 Sex Assigned At Female F [facility] Clinical Notes 11-10-2007 to 12-09-2023 Note Date & Type Note Facility 12-09-2023 Note Prior auth for Mycop henolate was submitted via cmm Approved- scanned into media Keycode: [id number] [facility] 11-26-2023 Note Prior auth submitted via CMM PA Case: [id number], Status: Approved, Coverage Starts on: 08/27/2023 12:00:00 AM, Coverage Ends on: 11/25/2024 12:00:00 AM Keycode: [id number] [facility] 09-23-2023 Note 09/23/23 Chief Complaint Patient presents with Kidney Follow-up Pt has been having sores in her mouth for the past month. PCP: Ramon Carroll MD Txp Referring: Preferred Pharmacy: [facility] - [place], [place] - [address] [facility] [address] [id number] - [place], [place] - [address] [facility] [address] [facility] [phone] [facility] [place], [place] - [address] [place] [address] [address] [facility] [address] Subjective Visit Vitals BP 139/74 (BP Location: Left arm, Patient Position: Sitting, BP Cuff Size: Adult) Pulse 59 Temp 36.3 ???C (97.3 ???F) (Oral) Resp 18 Ht 1.524 m (5') Wt 58.5 kg (129 lb) SpO2 99% BMI 25.19 kg/m??? OB Status Postmenopausal Smoking Status Never BSA 1.57 m??? No Known Allergies Medication Documentation Review Audit Reviewed by Ester Welsh MA (Refining Engineer) on 09/23/23 at 0859 Medication Order Taking? Sig Documenting Provider Last Dose Status amLODIPine (Norvasc) 5 mg tablet [id number] Yes TAKE 1 TABLET BY MOUTH EVERY DAY Virgil Haynes NP Taking Active amoxicillin (Amoxil) 500 mg capsule [id number] No 1 capsule every 8 (eight) hours. Historical MD Blanche Not Taking Active atorvastatin (Lipitor) 20 mg tablet [id number] Yes TAKE 1 TABLET BY MOUTH EVERY DAY AT BEDTIME Virgil Haynes NP Taking Active baclofen (Lioresal) 10 mg tablet [id number] No Historical MD Blanche Not Taking Active cyanocobalamin (Vitamin B-12) 500 mcg tablet [id number] Yes in the morning. Historical MD Blanche Taking Active magnesium oxide (Mag-Ox) 400 mg (241.3 mg magnesium) tablet [id number] Yes Take 400 mg by mouth in the morning. Historical MD Blanche Taking Active mycophenolate (Myfortic) 180 mg EC tablet [id number] Yes TAKE 4 TABLETS BY MOUTH IN THE MORNING AND AT BEDTIME Patient taking differently: Take 540 mg by mouth in the morning and at bedtime. Doe Bridges MD Taking Active omega-3 fatty acids-fish oil (Fish OiL Extra Strength) 435-880 mg capsule [id number] Yes 1 capsule 1 (one) time each day at the same time. Historical ProviderMD Taking Active PARoxetine (Paxil) 10 mg tablet [id number] Yes Take 10 mg by mouth in the morning. Historical MD Blanche Taking Active potassium gluconate 595 mg (99 mg) tablet [id number] Yes every 12 (twelve) hours. Historical ProviderMD Taking Active spironolactone (Aldactone) 25 mg tablet [id number] Yes TAKE 1 TABLET BY MOUTH EVERY DAY Virgil Haynes NP Taking Active tacrolimus (Prograf) 0.5 mg capsule [id number] Yes TAKE ONE CAPSULE BY MOUTH EVERY [...] Tx 2013, APKD. Continues to see PCP: Glen and Akshat. Pt reports current oral thrush and in [...] Continue meds and MONTHLY Labs with New [facility] standing Order given today. Follow up 6 months or sooner if needed. See Derm See PCP as scheduled: Dr Carroll. Magic Mouthwash script provided. Chart Review today: 03.17.23 Pt presents visit with . Pt states labs done Last week in [facility] and [place] calling for results. Pt seeing Derm in [place] for lesion: forearm and other lesions. Hx: melanoma PCP: local Dr Khoury (more content not included)... [facility] 03-27-2023 Evaluation note Encounter Date Diagnosis Assessment Notes Feb, Contact with and (suspected) exposure to covid-19 (ICD-10 - Z20.822) Feb, Viral URI (ICD-10 - J06.9) Advised patient that COVID/Influenza A/B/RSV test and rapid Strep test was negative today. Advised patient that will treat as viral URI. Supportive care as directed, increase fluids and rest, Tylenol as directed, rx of [place], cool mist humidifier, throat lozenges. Discussed infection [...] condition. Feb, Sore throat (ICD-10 - J02.9) [facility] Other 12-18-2023 Note03/17/23 Chief Complaint Patient presents with Kidney Follow-up Patient would like to know if Virgil would prescribe depression medication. PCP: Ramon Carroll MD Txp Referring: Preferred Pharmacy: [facility] - [place], [place] - [address] [facility] [address] [id number] [place], [place] [address] [facility] [address] [place] [phone] [facility] - [place], [place] - [address] [facility] [address] [facility] [address] Subjective Visit Vitals BP 142/80 (BP Location: Right arm, Patient Position: Sitting) Pulse 63 Temp 36.3 ???C (97.4 ???F) (Oral) Ht 1.524 m (5') Wt 60.6 kg (133 lb 9.6 oz) BMI 26.09 kg/m??? Smoking Status Never BSA 1.6 m??? No Known Allergies Medication Documentation Review Audit Reviewed by Flakita Lagos MA (Refining Engineer) on 03/17/23 at 0956 Medication Order Taking? Sig Documenting Provider Last Dose Status amLODIPine (Norvasc) 5 mg tablet [id number] Yes TAKE 1 TABLET BY MOUTH EVERY DAY Virgil Haynes NP Taking Active amoxicillin (Amoxil) 500 mg capsule [id number] No 1 capsule every 8 (eight) hours. Yasmin Mancia MD Not Taking Active atorvastatin (Lipitor) 20 mg tablet [id number] Yes TAKE 1 TABLET BY MOUTH EVERY DAY AT BEDTIME Virgil Haynes NP Taking Active baclofen (Lioresal) 10 mg tablet [id number] Yes Yasmin Mancia MD Taking Active cyanocobalamin (Vitamin B-12) 500 mcg tablet [id number] No in the morning. Yasmin Mancia MD Not Taking Active magnesium oxide (Mag-Ox) 400 mg (241.3 mg magnesium) tablet [id number] Yes Take 400 mg by mouth in the morning. Yasmin Mancia MD Taking Active mycophenolate (Myfortic) 180 mg EC tablet [id number] Yes TAKE 4 TABLETS BY MOUTH IN THE MORNING AND AT BEDTIME Doe Bridges MD Taking Active omega-3 fatty acids-fish oil (Fish OiL Extra Strength) 435-880 mg capsule [id number] No 1 capsule 1 (one) time each day at the same time. Yasmin Mancia MD Not Taking Active PARoxetine (Paxil) 10 mg tablet [id number] Yes Take 10 mg by mouth in the morning. Yasmin Mancia MD Taking Active potassium gluconate 595 mg (99 mg) tablet [id number] No every 12 (twelve) hours. Yasmin Mancia MD Not Taking Active spironolactone (Aldactone) 25 mg tablet [id number] Yes TAKE 1 TABLET BY MOUTH EVERY DAY Virgil Haynes NP Taking Active tacrolimus (Prograf) 0.5 mg capsule [id number] Yes TAKE ONE CAPSULE BY MOUTH EVERY MORNING AND 1 CAPSULE EVERY NIGHT AT BEDTIME Anthony Kunz MD Taking Active Immunization History Administered Date(s) Administered [employer] Sars-Cov-2 Vaccination 06/07/2020 There is no problem [...] Pt states labs done Last week in [place] [facility] and [place] calling for results. Pt seeing Derm in [place] for lesion: forearm and other lesions. Hx: [...] Hgb. Pt AGAIN instructed to use our [facility] Transplant standing order for her monthly labs. Pt reports B/P stable at home Discussed hydration PLan of Care: Continue meds and MONTHLY Labs with [facility] standing Order. Follow up 6 months [...] ; Creat 0.9 ; (more content not included)...[facility]10-18-2023 Note Reviewed Ext Tac 3.6 over the phone with Dr. Vivas, per phone order no changes at this time.[facility]10-15-2022 Evaluation note* Encounter Date Diagnosis Assessment [...] understanding and is agreeable with treatment plan [facility] Other 09-30-2022 Evaluation note* Encounter Date Diagnosis [...] no improvement in 2 to 3 days. [facility] Other 09-27-2022 Evaluation note* Encounter Date Diagnosis [...] treatment plan. 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 she had a son Medical History hypertension Medical History kidney transplant Surgical History resection of superior cervical mass 11/10/07 Surgical History Teeth extraction in preparation for renal transplant Surgical History portacath placement Surgical History kidney transplant 2014 Hospitalization History see above [facility] Other Evaluation [facility] Other Evaluation note* Diagnosis Onset Date Resolution Status Thrush, oral acute Sore throat noneactive [facility] Work Phone: History general Narrative - ReportedNoNeohapsis Other Summary Purpose Family History No Family [...] and content) DATE CREATED AUTHOR 01/30/2018 [facility] DATE CREATED AUTHOR AUTHOR'S ORGANIZ ATION 08/17/2021 [facility] DATE CREATED AUTHOR AUTHOR'S ORGANIZ ATION 08/13/2022 [facility] DATE CREATED AUTHOR AUTHOR'S ORGANIZ ATION 09/03/2023 [facility] EPIC DATE CREATED AUTHOR AUTHOR'S ORGANIZ ATION 12/11/2023 [facility] REASON FOR VISIT (unrecogniz ed section and content) DYSURIADYSURIADYSURIAPOSS RA SH ON BACK, ITCHINGDODGE JOURNEY, SORE THROAT, COUGHBLACK DODGE JOURNT SORE THROATIN CAR, MOUTH SORES, CALL [phone] THROAT, COUGHING, DRAINAGE Care Teams (unrecognized sec [...] BE BASED ON THE PRIMARY CLINICAL RECORDS. [facility] [employer] [facility]. provides no warranty or guarantee of the accuracy or completeness of information in this document.
[2023-12-15 07:38] LABS: Basophils Percent Auto 0.3 % (0.2-2.0); Eosinophils Absolute Auto 0.2 10^3/uL (0.0-0.7); Eosinophils Percent Auto 3.6 % (0.9-7.0); Hemoglobin 14.7 g/dL (12.0-16.0); Immature Granulocytes Abs Auto 0.01 10^3/uL (0.00-0.03); Immature Granulocytes Pct Auto 0.2 % (0.0-0.5); Lymphocytes Absolute Auto 1.4 10^3/uL (1.2-3.8); Lymphocytes Percent Auto 22.4 % (20.5-60.0); Mean Corpuscular Hemoglobin 30.1 pg (26.7-34.0); Mean Corpuscular Volume 94.3 fL (81.0-99.0); Mean Platelet Volume 11.6 fL (9.5-13.5); Monocytes Absolute Auto 0.6 10^3/uL (0.3-0.8); Monocytes Percent Auto 9.6 % (1.7-12.0); Neutrophils Absolute Auto 3.9 10^3/uL (1.4-6.5); Neutrophils Percent Auto 63.9 % (43.0-75.0); Platelet Count 202 10^3/uL (150-450); Red Blood Count 4.88 10^6/uL (4.20-5.40); Red Cell Distribution Width 14.7 % (11.0-15.0)
[2023-12-15 07:48] LABS: Estimated Average Glucose 108 mg/dL; Glycohemoglobin A1C 5.4 % (4.5-6.2)
[2023-12-15 08:44] LABS: Alanine Aminotransferase 17 U/L (14-59); Albumin Globulin Ratio 1.2; Albumin Level 3.7 g/dL (3.4-5.0); Alkaline Phosphatase 135 U/L (46-116); Anion Gap 12.8; Aspartate Amino Transferase 15 U/L (15-37); BUN Creatinine Ratio 18.7; Bilirubin Direct 0.1 mg/dL (0.0-0.2); Bilirubin Total 0.6 mg/dL (0.2-1.0); Calcium 9.5 mg/dL (8.5-10.1); Carbon Dioxide 29.3 mmol/L (21.0-32.0); Chloride 104 mmol/L (98-107); Estimated GFR (African America >60 (>=60); Estimated GFR (Non-African Ame >60 (>=60); Globulin 3.1 g/dL; Glucose 92 mg/dL (74-106); Magnesium 1.7 mg/dL (1.8-2.4); Phosphorus 3.2 mg/dL (2.6-4.7); Potassium 4.1 mmol/L (3.5-5.1); Sodium 142 mmol/L (136-145); Total Protein 6.8 g/dL (6.4-8.2); Uric Acid 4.6 mg/dL (2.6-6.0)
[2023-12-18 08:13] LABS: Tacrolimus (FK506), Blood 3.9 ng/mL (2.0-20.0)
== END 2023-12-15 06:58 | disposition home or self-care (01) ==
LOC: LAB 07:00
PROVIDERS: PCP Internal Medicine
DX: E13.9 Other specified diabetes mellitus without complications (principal); Z94.0 Kidney transplant status
CPT/HCPCS: 36415; 80053; 80197; 82248; 83036; 83735; 84100; 84550; 85025

== ENCOUNTER 2024-01-14 06:40 | Outpatient (OUT) | payer MEDICARE, SELFPAY ==
--- OUTSIDE RECORDS SUMMARY | 2024-01-12 06:54 | XMS_ITS | CCD ---
Author Organization [facility] Inform ion [facility] Care Team Providers Care Fleet Operations Manager Name Role Phone [place], DINKAR Unavailable Unavailable [place], DINKAR Unavailable Unavailable CARROLL, RAMON Unavailable Unavailable CARROLL, RAMON Unavailable Unavailable RATNAM, ROSALINDA Unavailable Unavailable RATNAM, ROSALINDA Unavailable Unavailable SELF, REFERRED Unavailable Unavailable CARROLL, RAMON Unavailable Unavailable RATNAM, ROSALINDA Unavailable Unavailable RATNAM, ROSALINDA Unavailable Unavailable CARROLL, RAMON Unavailable Unavailable CARROLL, ARMON Unavailable Unavailable RATNAM, ROSALINDA Unavailable Unavailable RATNAM, [...] CARROLL, DR DARBY Attending Unavailable ZIEBER, DR ATREMIO Garcia Consulting Unavailable CARROLL, DR DARBY Primary Care Unavailable MISC, DR OBRIEN Consulting Unavailable MISC, DR OBRIEN Attending Unavailable MISC, DR OBRIEN Admitting Unavailable [place]OD [place]LEY, DR CONNORS Consulting Unavailable CARROLL, DR DARBY Primary Care Unavailable MISC, DR OBRIEN Attending Unavailable MISC, DR OBRIEN Admitting Unavailable MISC, DR OBRIEN Attending Unavailable MISC, DR OBRIEN Admitting Unavailable MISC, DR OBRIEN Consulting Unavailable CARROLL, DR DARBY Primary Care Unavailable [place], DR CONNORS Consulting Unavailable [place]LEY, DR CONNORS Attending Unavailable CARROLL, DR DARBY Primary Care Unavailable [place], DR CONNORS Admitting Unavailable [place], DR CONNORS Attending Unavailable CARROLL, DR DARBY Primary Care Unavailable [place], DR CONNORS Admitting Unavailable [place], DR CONNORS Consulting Unavailable MISC, DR OBRIEN [...] Unavailable CARROLL, DR DARBY Primary Care Unavailable [place], DR CONNORS Consulting Unavailable [place], DR CONNORS Attending Unavailable CARROLL, DR DARBY Primary Care Unavailable [place], DR CONNORS Admitting Unavailable MISC, DR OBRIEN Attending Unavailable MISC, DR OBRIEN Admitting Unavailable MISC, DR OBRIEN Consulting Unavailable CARROLL, DR DARBY Primary Care Unavailable MISC, DOCTOR Attending Unavailable MISC, DR OBRIEN Admitting Unavailable MISC, DR OBRIEN Consulting Unavailable DR RAMON CARROLL Primary Care Unavailable [place]OD [place], DR CONNORS Consulting Unavailable [place]OD [place]LEY, DR CONNORS Attending Unavailable [place], DR CONNORS Admitting Unavailable GLEN, DR DARBY Primary Care Unavailable RAMON CARROLL Attending Unavailable ESTER PADILLA Attending Unavailable ESTER PADILLA Attending Unavailable ESTER PADILLA Attending Unavailable VIRGIL HAYNES Attending Unavailable VIRGIL HAYNES Attending Unavailable Medications Current Medications Medication Drug Class(es) Dates Sig (Normalized) Sig (Original) [id number] 200 actuat albuterol 0.09 mg/actuat metered dose [...] 1.5 mg/ml oral solution (1 source) Uncompetitive T-mbhpja-Y-asparta te Receptor Antagonist, Sigma-1 Agonist Start: 03-27-2023 take 10 mL by mouth every eight hours [place] DM 7.5-7.5 MG/5ML 10 mL Orally every 8 hours for 5 days Feb, Active ergocalciferol 1.25 mg oral capsule (9 sources) Provitamin D2 Compound Start: 06-27-2011 take 1 capsule by mouth every week Vitamin D (Ergocalciferol) 72256 UNIT 1 capsule Orally Once a Week [...] August 30, 2023 12:00am swish and swallow [place] 9-Flp-Mxg-Fish Oil (Fish Oil) 1,000 mg (120 mg-180 mg) capsule (1 source) Start: 08-30-2023 take 1 capsule by mouth once daily [place] 8-Bej-Vwv-Fish Oil (Fish Oil) 1,000 mg (120 mg-180 [...] Start: 12-25-2021 take 1 capsule by mo [facility] every eight hours Tessalon Perles [...] 03-27-2017 Episodic Other aftercare (2 sources) Other senior living (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 therapy; Translations: [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) DRUG THERAPY] Onset: 02-26-2017 Episodic [...] Interpretation Reference Range Facility Documentationon 12-09-2023 Documentation [id number] Tanika Grimm 1955 F Date Provider Department Center 12/09/2023 FERNANDA MARVIN TXGely None Family History Family Status - Relation Status Age at Mother Father Reason for Visit and Comments: Prior auth : Mycophenolate [Other] [facility] Documentationon 11-26-2023 Documentation [id number] Tanika Grimm 1955 F Date Provider Department Center 11/26/2023 86GARRETTAURELIOFERNANDA TXGely None Family History Family Status - Relation Status Age at Mother Father Reason for Visit and Comments: Prior auth Tac 0.5mg [Other] [facility] Documentationon 10-27-2023 Documentation [id number] Tanika Grimm 1955 Date Provider Department Center 10/27/2023 750-ANEL MIRANDA TXP None Family History Family Status - Relation Status Age at Mother Father [facility] 29on 09-23-2023 29 Addended by: DIANE LE on: 09/23/2023 03:27 PM Modules accepted: Orders [facility] Follow-Upon 09-23-2023 Follow-Up [id number] Tanika Grimm 1955 Provider Department Center 09/23/2023 124-VIRGIL HAYNES TXGely None Family History Family Status - Relation Status Age at Mother Father Level of Service:76953 [place] OFFICE/OUTPATIENT ESTABLISHED MOD MDM 30 MIN Reason for Visit and Comments: Kidney Follow-up [] - Pt has been having sores in her mouth for the past month. [facility] No Panel InformationOrdered By: Lindsay Soria on 08-30-2023 Quick Strep (POC) [facility] Documentationon 08-26-2023 Documentation [id number] Tanika Grimm 1955 F Date Provider Department Center 08/26/2023 750-ANEL MIRANDA TXP None No family history on file [facility] Documentationon 05-19-2023 Documentation [id number] Tanika Grimm 1955 Date Provider Department Center 05/19/2023 750-ANEL MIRANDA TXP None No family history on file [facility] COVID/FLU/RSV RT-PCRon 03-27 SARS-CoV-2 (COVID-19) RNA MURALI+probe Ql (Unsp spec) Negative [facility] Other COVID/FLU/RSV RT-PCR Negative [facility] [address] [facility] Other Quick Strepon 03-27-2023 S. pyogenes Org specific cx Ql (Throat) Negative [facility] Other Quick Strep [facility] Other 29on 03-17-2023 29 Addended by: FLAKITA LAGOS on: 03/17/2023 11:44 AM Modules accepted: Orders [facility] Follow-Upon 03-17-2023 Follow-Up [id number] Tanika Grimm 1955 Provider Department Center 03/17/2023 124-VIRGIL HAYNES TXP None No family history on file Level of Service:94991 [place] OFFICE/OUTPATIENT ESTABLISHED LOW MDM 20 MIN Reason for Visit and Comments: Kidney Follow-up [[id number]] - Patient would like to know if Virgil would prescribe depression medication. [facility] 36on 01-31-2023 36 Transplant Pharmacis t - [...] need for taper. The patient's verbalized understanding. Gas Burner Operator added medication to med list. The patient's stated patient will be getting a DEXA scan and recommended to not have calcium 3 days before. Reviewed medication list for any products containing calcium - no medications found. No other questions or concerns at this time. Normal [facility] Telephoneon 01-31-2023 Telephone [id number] Tanika Grimm 1955 F Date Provider Department [place] [facility] [place] [facility] No family history on file Reason for Visit and Comments: Transplant Pharmacist - Drug Information [[id number]] Normal [facility] BILIRUBIN CONJUGATED (DIRECT )on 08-12-2022 BILI, CONJUGATED 0.1 mg/dL Normal 0.0-0.2 [facility] Comment on above: Performed By: #### D DAVIDSON, MG, PHOS, CMP, LIPID, URIC #### [facility] [address] [place] [address] Dr. Sarmad Patino GLYCOHEMOGLOBIN A1Con 2022 ADA RECOMMENDATION SEE BELOW Normal [facility] Comment on above: Result Comment: ADA RECOMMENDED LIMIT 4.0 - 6.0 ADA THERAPEUTIC TARGET < 7.0 ACTION SUGGESTED > 7.0 Performed By: #### D DAVIDSON, MG, PHOS, CMP, LIPID, URIC #### [facility] [address] [address] [address] Sarmad Patino Glucose [Mass/Vol] 108 mg/dL Normal [facility] Comment on above: Performed By: #### D DAVIDSON, MG, PHOS, CMP, LIPID, URIC #### [facility] [address] [address] [address] Sarmad Patino HbA1c (Bld) [Mass fraction] 5.4 % Normal 4.5-6.2 [facility] Comment on above: Performed By: #### D DAVIDSON, MG, PHOS, CMP, LIPID, URIC #### [facility] [address] [place] [address] Dr. Sarmad Patino MAGNESIUMon 08-12-2022 Magnesium [Mass/Vol] 1.7 mg/dL Critically low 1.8-2.4 [facility] Comment on above: Performed By: #### D DAVIDSON, MG, PHOS, CMP, LIPID, URIC #### [facility] [address] [place] [address] Dr. Sarmad Patino PHOSPHORUSon 08-12-2022 Phosphate [Mass/Vol] 3.9 mg/dL Normal 2.6-4.7 [facility] Comment on above: Performed By: #### U MAXI, LIPID, MG, CMP, DBIL, PHOS #### [facility] [address] [place] [address] Dr. Sarmad Patino PROF 14(COMP METB)on 023 Albumin [Mass/Vol] 3.9 g/dL Normal 3.4-5.0 [facility] Comment on above: Performed By: #### D DAVIDSON, MG, PHOS, CMP, LIPID, URIC #### [facility] [address] [place] [address] Dr. Sarmad Patino Albumin/Globulin [Mass ratio] 1.2 {ratio} Normal [facility] Comment on above: Performed By: #### D DAVIDSON, MG, PHOS, CMP, LIPID, URIC #### [facility] [address] [place] [address] Dr. Sarmad Patino ALP [Catalytic activity/Vol] 126 U/L Critically high 46-116 [facility] Comment on above: Performed By: #### D DAVIDSON, MG, PHOS, CMP, LIPID, URIC #### [facility] [address] [place] [address] Dr. Sarmad Patino ALT [Catalytic activity/Vol] 18 U/L Normal 14-59 [facility] Comment on above: Performed By: #### D DAVIDSON, MG, PHOS, CMP, LIPID, URIC #### [facility] [address] [place] [address] Dr. Sarmad Patino Anion gap [Moles/Vol] 10.4 mmol/L Normal [facility] Comment on above: Performed By: #### D DAVIDSON, MG, PHOS, CMP, LIPID, URIC #### [facility] [address] [place] [address] Dr. Sarmad Patino AST [Catalytic activity/Vol] 14 U/L Critically low 15-37 [facility] Comment on above: Performed By: #### D DAVIDSON, MG, PHOS, CMP, LIPID, URIC #### [facility] [address] [place] [address] Dr. Sarmad Patino Bilirubin [Mass/Vol] 0.7 mg/dL Normal 0.2-1.0 [facility] Comment on above: Performed By: #### D DAVIDSON, MG, PHOS, CMP, LIPID, URIC #### [facility] [address] [address] [address] Sarmad Patino Calcium [Mass/Vol] 9.8 mg/dL Normal 8.5-10.1 [facility] Comment on above: Performed By: #### D DAVIDSON, MG, PHOS, CMP, LIPID, URIC #### [facility] [address] [place] [address] Dr. Sarmad Patino Chloride [Moles/Vol] 106 mmol/L Normal 98-107 [facility] Comment on above: Performed By: #### D DAVIDSON, MG, PHOS, CMP, LIPID, URIC #### [facility] [address] [address] [address] Sarmad Patino CO2 [Moles/Vol] 32.1 mmol/L Critically high 21.0-32.0 [facility] Comment on above: Performed By: #### D DAVIDSON, MG, PHOS, CMP, LIPID, URIC #### [facility] [address] [place] [address] Dr. Sarmad Patino Creatinine [Mass/Vol] 0.92 mg/dL Normal 0.55-1.02 [facility] Comment on above: Performed By: #### D DAVIDSON, MG, PHOS, CMP, LIPID, URIC #### [facility] [address] [place] [address] Dr. Sarmad Patino EGFR-AF BURUNDIAN >60 Normal >=60 [facility] Comment on above: Performed By: #### D DAVIDSON, MG, PHOS, CMP, LIPID, URIC #### [facility] [address] [place] [address] Dr. Sarmad Patino EGFR-NON AF BURUNDIAN >60 Normal >=60 [facility] Comment on above: Performed By: #### D DAVIDSON, MG, PHOS, CMP, LIPID, URIC #### [facility] [address] [place] [address] Dr. Sarmad Patino Globulin (S) [Mass/Vol] 3.3 g/dL Normal [facility] Comment on above: Performed By: #### D DAVIDSON, MG, PHOS, CMP, LIPID, URIC #### [facility] [address] [place] [address] Dr. Sarmad Patino Glucose [Mass/Vol] 102 mg/dL Normal 74-106 [facility] Comment on above: Performed By: #### D DAVIDSON, MG, PHOS, CMP, LIPID, URIC #### [facility] [address] [place] [address] Dr. Sarmad Patino Potassium [Moles/Vol] 4.5 mmol/L Normal 3.5-5.1 [facility] Comment on above: Performed By: #### D DAVIDSON, MG, PHOS, CMP, LIPID, URIC #### [facility] [address] [address] [address] Sarmad Patino Protein [Mass/Vol] 7.2 g/dL Normal 6.4-8.2 [facility] Comment on above: Performed By: #### D DAVIDSON, MG, PHOS, CMP, LIPID, URIC #### [facility] [address] [address] [address] Sarmad Patino Sodium [Moles/Vol] 144 mmol/L Normal 136-145 [facility] Comment on above: Performed By: #### D DAVIDSON, MG, PHOS, CMP, LIPID, URIC #### [facility] [address] [place] [address] Dr. Sarmad Patino Urea nitrogen [Mass/Vol] 20.0 mg/dL Critically high 7.0-18.0 [facility] Comment on above: Performed By: #### D DAVIDSON, MG, PHOS, CMP, LIPID, URIC #### [facility] [address] [place] [address] Dr. Sarmad Patino Urea nitrogen/Creatinine [Mass ratio] 21.7 mg/mg Normal [facility] Comment on above: Performed By: #### D DAVIDSON, MG, PHOS, CMP, LIPID, URIC #### [facility] [address] [address] [address] Sarmad Patino URIC ACID SERUMon 08-12-2022 Urate [Mass/Vol] 5.2 mg/dL Normal 2.6-6.0 [facility] Comment on above: Performed By: #### D DAVIDSON, MG, PHOS, CMP, LIPID, URIC #### [facility] [address] [address] [address] Sarmad Patino MG MAMM SCREEN 3D DAVIDSON CADon 07-23-2022 MG MAMM SCREEN 3D DAVIDSON CAD Patient: TANIKA GRIMM Exam Date: 07/23/2022 : 1955 Gender:F Ordering : DR RAMON CARROLL M.D. Admission #: [id number] Family : Order #: [id number] CLICK HERE TO VIEW EXAM RADIOLOGY REPORT [...] Treatments None Family Cancers None LOCATION: [facility] BREAST COMPOSITION: Extremely dense, which lowers the [...] M.D. on 07/23/2022 at 16:59 Normal [facility] FK506 (TACROLIMUS) WHOLE BLO ODon 07-10-2022 Tacrolimus (FK506), Blood 3.8 ng/mL Normal 2.0-20.0 [facility] Comment on above: Result Comment: Trou gh (immediately following transplant) 15.0 . Trough (steady state, 2 weeks or more after transplant): 3.0 - 8.0 . Performed by LC-MS/MS technology. Performed By: #### D DAVIDSON, MG, PHOS, CMP, LIPID, URIC #### [facility] [address] [address] [address] Sarmad Patino BILIRUBIN CONJUGATED (DIRECT )on 07-08-2022 BILI, CONJUGATED 0.1 mg/dL Normal 0.0-0.2 [facility] Comment on above: Performed By: #### U MAXI, LIPID, MG, CMP, DBIL, PHOS #### [facility] [address] [address] [address] Sarmad Patino GLYCOHEMOGLOBIN A1Con 2022 ADA RECOMMENDATION SEE BELOW Normal [facility] Comment on above: Result Comment: ADA RECOMMENDED LIMIT 4.0 - 6.0 ADA THERAPEUTIC TARGET < 7.0 ACTION SUGGESTED > 7.0 Performed By: #### D DAVIDSON, MG, PHOS, CMP, LIPID, URIC #### [facility] [address] [address] [address] Sarmad Patino Glucose [Mass/Vol] 105 mg/dL Normal [facility] Comment on above: Performed By: #### D DAVIDSON, MG, PHOS, CMP, LIPID, URIC #### [facility] [address] [address] [address] Sarmad Patino HbA1c (Bld) [Mass fraction] 5.3 % Normal 4.5-6.2 [facility] Comment on above: Performed By: #### D DAVIDSON, MG, PHOS, CMP, LIPID, URIC #### [facility] [address] [address] [address] Sarmad Patino MAGNESIUMon 07-08-2022 Magnesium [Mass/Vol] 1.8 mg/dL Normal 1.8-2.4 [facility] Comment on above: Performed By: #### U MAXI, LIPID, MG, CMP, DBIL, PHOS #### [facility] [address] [place] [address] Dr. Sarmad Patino PHOSPHORUSon 07-08-2022 Phosphate [Mass/Vol] 3.8 mg/dL Normal 2.6-4.7 [facility] Comment on above: Performed By: #### U MAXI, LIPID, MG, CMP, DBIL, PHOS #### [facility] [address] [place] [address] Dr. Sarmad Patino PROF 14(COMP METB)on 023 Albumin [Mass/Vol] 3.7 g/dL Normal 3.4-5.0 [facility] Comment on above: Performed By: #### U MAXI, LIPID, MG, CMP, DBIL, PHOS #### [facility] [address] [place] [address] Dr. Sarmad Patino Albumin/Globulin [Mass ratio] 1.1 {ratio} Normal [facility] Comment on above: Performed By: #### U MAXI, LIPID, MG, CMP, DBIL, PHOS #### [facility] [address] [place] [address] Dr. Sarmad Patino ALP [Catalytic activity/Vol] 124 U/L Critically high 46-116 [facility] Comment on above: Performed By: #### U MAXI, LIPID, MG, CMP, DBIL, PHOS #### [facility] [address] [place] [address] Dr. Sarmad Patino ALT [Catalytic activity/Vol] 20 U/L Normal 14-59 [facility] Comment on above: Performed By: #### U MAXI, LIPID, MG, CMP, DBIL, PHOS #### [facility] [address] [place] [address] Dr. Sarmad Patino Anion gap [Moles/Vol] 11.5 mmol/L Normal [facility] Comment on above: Performed By: #### U MAXI, LIPID, MG, CMP, DBIL, PHOS #### [facility] [address] [place] [address] Dr. Sarmad Patino AST [Catalytic activity/Vol] 12 U/L Critically low 15-37 [facility] Comment on above: Performed By: #### U MAXI, LIPID, MG, CMP, DBIL, PHOS #### [facility] [address] [place] [address] Dr. Sarmad Patino Bilirubin [Mass/Vol] 0.5 mg/dL Normal 0.2-1.0 [facility] Comment on above: Performed By: #### U MAXI, LIPID, MG, CMP, DBIL, PHOS #### [facility] [address] [place] [address] Dr. Sarmad Patino Calcium [Mass/Vol] 9.6 mg/dL Normal 8.5-10.1 [facility] Comment on above: Performed By: #### U MAXI, LIPID, MG, CMP, DBIL, PHOS #### [facility] [address] [place] [address] Dr. Sarmad Patino Chloride [Moles/Vol] 106 mmol/L Normal 98-107 [facility] Comment on above: Performed By: #### U MAXI, LIPID, MG, CMP, DBIL, PHOS #### [facility] [address] [place] [address] Dr. Sarmad Patino CO2 [Moles/Vol] 29.7 mmol/L Normal 21.0-32.0 [facility] Comment on above: Performed By: #### U MAXI, LIPID, MG, CMP, DBIL, PHOS #### [facility] [address] [place] [address] Dr. Sarmad Patino Creatinine [Mass/Vol] 0.77 mg/dL Normal 0.55-1.02 [facility] Comment on above: Performed By: #### U MAXI, LIPID, MG, CMP, DBIL, PHOS #### [facility] [address] [place] [address] Dr. Sarmad Patino EGFR-AF BURUNDIAN >60 Normal >=60 [facility] Comment on above: Performed By: #### U MAXI, LIPID, MG, CMP, DBIL, PHOS #### [facility] [address] [address] [address] Sarmad Patino EGFR-NON AF BURUNDIAN >60 Normal >=60 [facility] Comment on above: Performed By: #### U MAXI, LIPID, MG, CMP, DBIL, PHOS #### [facility] [address] [place] [address] Dr. Sarmad Patino Globulin (S) [Mass/Vol] 3.4 g/dL Normal [facility] Comment on above: Performed By: #### U MAXI, LIPID, MG, CMP, DBIL, PHOS #### [facility] [address] [place] [address] Dr. Sarmad Patino Glucose [Mass/Vol] 97 mg/dL Normal 74-106 [facility] Comment on above: Performed By: #### U MAXI, LIPID, MG, CMP, DBIL, PHOS #### [facility] [address] [place] [address] Dr. Sarmad Patino Potassium [Moles/Vol] 4.2 mmol/L Normal 3.5-5.1 [facility] Comment on above: Performed By: #### U MAXI, LIPID, MG, CMP, DBIL, PHOS #### [facility] [address] [place] [address] Dr. Sarmad Patino Protein [Mass/Vol] 7.1 g/dL Normal 6.4-8.2 [facility] Comment on above: Performed By: #### U MAXI, LIPID, MG, CMP, DBIL, PHOS #### [facility] [address] [place] [address] Dr. Sarmad Patino Sodium [Moles/Vol] 143 mmol/L Normal 136-145 [facility] Comment on above: Performed By: #### U MAXI, LIPID, MG, CMP, DBIL, PHOS #### [facility] [address] [place] [address] Dr. Sarmad Patino Urea nitrogen [Mass/Vol] 26.0 mg/dL Critically high 7.0-18.0 [facility] Comment on above: Performed By: #### U MAXI, LIPID, MG, CMP, DBIL, PHOS #### [facility] [address] [place] [address] Dr. Sarmad Patino Urea nitrogen/Creatinine [Mass ratio] 33.8 mg/mg Normal [facility] Comment on above: Performed By: #### U MAXI, LIPID, MG, CMP, DBIL, PHOS #### [facility] [address] [place] [address] Dr. Sarmad Patino URIC ACID SERUMon 07-08-2022 Urate [Mass/Vol] 4.7 mg/dL Normal 2.6-6.0 [facility] Comment on above: Performed By: #### U MAXI, LIPID, MG, CMP, DBIL, PHOS #### [facility] [address] [place] [address] Dr. Sarmad Patino FK506 (TACROLIMUS) WHOLE BLO ODon 06-13-2022 Tacrolimus (FK506), Blood 3.0 ng/mL Normal 2.0-20.0 [facility] Comment on above: Result Comment: Trou gh (immediately following transplant) 15.0 . Trough (steady state, 2 weeks or more after transplant): 3.0 - 8.0 . Performed by LC-MS/MS technology. Performed By: #### D DAVIDSON, MG, PHOS, CMP, LIPID, URIC #### [facility] [address] [place] [address] Dr. Sarmad Patino BK VIRUS PCR QUANTon 023 BKV DNA QUANT PCR PLASMA Negative Normal Negative [facility] Comment on above: Result Comment: No B K DNA detected. . The linear range of the assay is 22 - 100,000,000 IU/mL. Performed By: #### B KVIRUS #### [facility] [address] [place] [address] Dr. Sarmad Patino Log10 BKV DNA Plasma Normal [facility] Comment on above: Performed By: #### B KVIRUS #### [facility] [address] [place] [address] Dr. Sarmad Patino BILIRUBIN CONJUGATED (DIRECT )on 06-10-2022 BILI, CONJUGATED 0.1 mg/dL Normal 0.0-0.2 [facility] Comment on above: Performed By: #### U MAXI, LIPID, MG, CMP, DBIL, PHOS #### [facility] [address] [address] [address] Sarmad Patino GLYCOHEMOGLOBIN A1Con 2022 ADA RECOMMENDATION SEE BELOW Normal [facility] Comment on above: Result Comment: ADA RECOMMENDED LIMIT 4.0 - 6.0 ADA THERAPEUTIC TARGET < 7.0 ACTION SUGGESTED > 7.0 Performed By: #### D DAVIDSON, MG, PHOS, CMP, LIPID, URIC #### [facility] [address] [address] [address] Sarmad Patino Glucose [Mass/Vol] 114 mg/dL Normal [facility] Comment on above: Performed By: #### D DAVIDSON, MG, PHOS, CMP, LIPID, URIC #### [facility] [address] [place] [address] Dr. Sarmad Patino HbA1c (Bld) [Mass fraction] 5.6 % Normal 4.5-6.2 [facility] Comment on above: Performed By: #### D DAVIDSON, MG, PHOS, CMP, LIPID, URIC #### [facility] [address] [address] [address] Sarmad Patino MAGNESIUMon 06-10-2022 Magnesium [Mass/Vol] 1.6 mg/dL Critically low 1.8-2.4 [facility] Comment on above: Performed By: #### U MAXI, LIPID, MG, CMP, DBIL, PHOS #### [facility] [address] [address] [address] Sarmad Patino PROF 14(COMP METB)on 023 Albumin [Mass/Vol] 3.7 g/dL Normal 3.4-5.0 [facility] Comment on above: Performed By: #### U MAXI, LIPID, MG, CMP, DBIL, PHOS #### [facility] [address] [place] [address] Dr. Sarmad Patino Albumin/Globulin [Mass ratio] 1.1 {ratio} Normal [facility] Comment on above: Performed By: #### U MAXI, LIPID, MG, CMP, DBIL, PHOS #### [facility] [address] [place] [address] Dr. Sarmad Patino ALP [Catalytic activity/Vol] 142 U/L Critically high 46-116 [facility] Comment on above: Performed By: #### U MAXI, LIPID, MG, CMP, DBIL, PHOS #### [facility] [address] [address] [address] Sarmad Patino ALT [Catalytic activity/Vol] 29 U/L Normal 14-59 [facility] Comment on above: Performed By: #### U MAXI, LIPID, MG, CMP, DBIL, PHOS #### [facility] [address] [place] [address] Dr. Sarmad Patino Anion gap [Moles/Vol] 11.1 mmol/L Normal [facility] Comment on above: Performed By: #### U MAXI, LIPID, MG, CMP, DBIL, PHOS #### [facility] [address] [place] [address] Dr. Sarmad Patino AST [Catalytic activity/Vol] 19 U/L Normal 15-37 [facility] Comment on above: Performed By: #### U MAXI, LIPID, MG, CMP, DBIL, PHOS #### [facility] [address] [place] [address] Dr. Sarmad Patino Bilirubin [Mass/Vol] 0.6 mg/dL Normal 0.2-1.0 [facility] Comment on above: Performed By: #### U MAXI, LIPID, MG, CMP, DBIL, PHOS #### [facility] [address] [place] [address] Dr. Sarmad Patino Calcium [Mass/Vol] 9.8 mg/dL Normal 8.5-10.1 [facility] Comment on above: Performed By: #### U MAXI, LIPID, MG, CMP, DBIL, PHOS #### [facility] [address] [place] [address] Dr. Sarmad Patino Chloride [Moles/Vol] 103 mmol/L Normal 98-107 [facility] Comment on above: Performed By: #### U MAXI, LIPID, MG, CMP, DBIL, PHOS #### [facility] [address] [place] [address] Dr. Sarmad Patino CO2 [Moles/Vol] 30.7 mmol/L Normal 21.0-32.0 [facility] Comment on above: Performed By: #### U MAXI, LIPID, MG, CMP, DBIL, PHOS #### [facility] [address] [place] [address] Dr. Sarmad Patino Creatinine [Mass/Vol] 0.79 mg/dL Normal 0.55-1.02 [facility] Comment on above: Performed By: #### U MAXI, LIPID, MG, CMP, DBIL, PHOS #### [facility] [address] [place] [address] Dr. Sarmad Patino EGFR-AF BURUNDIAN >60 Normal >=60 [facility] Comment on above: Performed By: #### U MAXI, LIPID, MG, CMP, DBIL, PHOS #### [facility] [address] [place] [address] Dr. Sarmad Patino EGFR-NON AF BURUNDIAN >60 Normal >=60 [facility] Comment on above: Performed By: #### U MAIX, LIPID, MG, CMP, DBIL, PHOS #### [facility] [address] [place] [address] Dr. Sarmad Patino Globulin (S) [Mass/Vol] 3.4 g/dL Normal [facility] Comment on above: Performed By: #### U MAXI, LIPID, MG, CMP, DBIL, PHOS #### [facility] [address] [place] [address] Dr. Sarmad Patino Glucose [Mass/Vol] 94 mg/dL Normal 74-106 [facility] Comment on above: Performed By: #### U MAXI, LIPID, MG, CMP, DBIL, PHOS #### [facility] [address] [place] [address] Dr. Sarmad Patino Potassium [Moles/Vol] 3.8 mmol/L Normal 3.5-5.1 [facility] Comment on above: Performed By: #### U MAXI, LIPID, MG, CMP, DBIL, PHOS #### [facility] [address] [place] [address] Dr. Sarmad Patino Protein [Mass/Vol] 7.1 g/dL Normal 6.4-8.2 [facility] Comment on above: Performed By: #### U MAXI, LIPID, MG, CMP, DBIL, PHOS #### [facility] [address] [place] [address] Dr. Sarmad Patino Sodium [Moles/Vol] 141 mmol/L Normal 136-145 [facility] Comment on above: Performed By: #### U MAXI, LIPID, MG, CMP, DBIL, PHOS #### [facility] [address] [place] [address] Dr. Sarmad Patino Urea nitrogen [Mass/Vol] 17.0 mg/dL Normal 7.0-18.0 [facility] Comment on above: Performed By: #### U MAXI, LIPID, MG, CMP, DBIL, PHOS #### [facility] [address] [place] [address] Dr. Sarmad Patino Urea nitrogen/Creatinine [Mass ratio] 21.5 mg/mg Normal [facility] Comment on above: Performed By: #### U MAXI, LIPID, MG, CMP, DBIL, PHOS #### [facility] [address] [place] [address] Dr. Sarmad Patino URIC ACID SERUMon 06-10-2022 Urate [Mass/Vol] 5.1 mg/dL Normal 2.6-6.0 [facility] Comment on above: Performed By: #### U MAXI, LIPID, MG, CMP, DBIL, PHOS #### [facility] [address] [place] [address] Dr. Sarmad Patino BK VIRUS PCR QUANTon 023 BKV DNA QUANT PCR PLASMA Negative Normal Negative [facility] Comment on above: Result Comment: No B K DNA detected. . The linear range of the assay is 22 - 100,000,000 IU/mL. Performed By: #### U MAXI, LIPID, MG, CMP, DBIL, PHOS #### [facility] [address] [place] [address] Dr. Sarmad Patino Log10 BKV DNA Plasma Normal [facility] Comment on above: Performed By: #### U MAXI, LIPID, MG, CMP, DBIL, PHOS #### [facility] [address] [address] [address] Sarmad Patino FK506 (TACROLIMUS) WHOLE BLO ODon 05-13-2022 Tacrolimus (FK506), Blood 4.1 ng/mL Normal 2.0-20.0 [facility] Comment on above: Result Comment: Trou gh (immediately following transplant) 15.0 . Trough (steady state, 2 weeks or more after transplant): 3.0 - 8.0 . Performed by LC-MS/MS technology. Performed By: #### U MAXI, LIPID, MG, CMP, DBIL, PHOS #### [facility] [address] [place] [address] Dr. Sarmad Patino BILIRUBIN CONJUGATED (DIRECT )on 05-10-2022 BILI, CONJUGATED 0.1 mg/dL Normal 0.0-0.2 [facility] Comment on above: Performed By: #### D DAVIDSON, MG, PHOS, CMP, LIPID, URIC #### [facility] [address] [place] [address] Dr. Sarmad Patino GLYCOHEMOGLOBIN A1Con 2022 ADA RECOMMENDATION SEE BELOW Normal [facility] Comment on above: Result Comment: ADA RECOMMENDED LIMIT 4.0 - 6.0 ADA THERAPEUTIC TARGET < 7.0 ACTION SUGGESTED > 7.0 Performed By: #### D DAVIDSON, MG, PHOS, CMP, LIPID, URIC #### [facility] [address] [address] [address] Sarmad Patino Glucose [Mass/Vol] 108 mg/dL Normal [facility] Comment on above: Performed By: #### D DAVIDSON, MG, PHOS, CMP, LIPID, URIC #### [facility] [address] [address] [address] Sarmad Patino HbA1c (Bld) [Mass fraction] 5.4 % Normal 4.5-6.2 [facility] Comment on above: Performed By: #### D DAVIDSON, MG, PHOS, CMP, LIPID, URIC #### [facility] [address] [place] [address] Dr. Sarmad Patino MAGNESIUMon 05-10-2022 Magnesium [Mass/Vol] 1.9 mg/dL Normal 1.8-2.4 [facility] Comment on above: Performed By: #### U MAXI, LIPID, MG, CMP, DBIL, PHOS #### [facility] [address] [place] [address] Dr. Sarmad Patino PROF 14(COMP METB)on 023 Albumin [Mass/Vol] 3.9 g/dL Normal 3.4-5.0 [facility] Comment on above: Performed By: #### D DAVIDSON, MG, PHOS, CMP, LIPID, URIC #### [facility] [address] [place] [address] Dr. Sarmad Patino Albumin/Globulin [Mass ratio] 1.2 {ratio} Normal [facility] Comment on above: Performed By: #### D DAVIDSON, MG, PHOS, CMP, LIPID, URIC #### [facility] [address] [place] [address] Dr. Sarmad Patino ALP [Catalytic activity/Vol] 114 U/L Normal 46-116 [facility] Comment on above: Performed By: #### D DAVIDSON, MG, PHOS, CMP, LIPID, URIC #### [facility] [address] [place] [address] Dr. Sarmad Patino ALT [Catalytic activity/Vol] 18 U/L Normal 14-59 [facility] Comment on above: Performed By: #### D DAVIDSON, MG, PHOS, CMP, LIPID, URIC #### [facility] [address] [place] [address] Dr. Sarmad Patino Anion gap [Moles/Vol] 15.9 mmol/L Normal [facility] Comment on above: Performed By: #### D DAVIDSON, MG, PHOS, CMP, LIPID, URIC #### [facility] [address] [place] [address] Dr. Sarmad Patino AST [Catalytic activity/Vol] 17 U/L Normal 15-37 [facility] Comment on above: Performed By: #### D DAVIDSON, MG, PHOS, CMP, LIPID, URIC #### [facility] [address] [address] [address] Sarmad Patino Bilirubin [Mass/Vol] 0.4 mg/dL Normal 0.2-1.0 [facility] Comment on above: Performed By: #### D DAVIDSON, MG, PHOS, CMP, LIPID, URIC #### [facility] [address] [address] [address] Sarmad Patino Calcium [Mass/Vol] 9.8 mg/dL Normal 8.5-10.1 [facility] Comment on above: Performed By: #### D DAVIDSON, MG, PHOS, CMP, LIPID, URIC #### [facility] [address] [place] [address] Dr. Sarmad Patino Chloride [Moles/Vol] 103 mmol/L Normal 98-107 [facility] Comment on above: Performed By: #### D DAVIDSON, MG, PHOS, CMP, LIPID, URIC #### [facility] [address] [address] [address] Sarmad Patino CO2 [Moles/Vol] 29.2 mmol/L Normal 21.0-32.0 [facility] Comment on above: Performed By: #### D DAVIDSON, MG, PHOS, CMP, LIPID, URIC #### [facility] [address] [place] [address] Dr. Sarmad Patino Creatinine [Mass/Vol] 0.74 mg/dL Normal 0.55-1.02 [facility] Comment on above: Performed By: #### D DAVIDSON, MG, PHOS, CMP, LIPID, URIC #### [facility] [address] [address] [address] Sarmad Patino EGFR-AF BURUNDIAN >60 Normal >=60 [facility] Comment on above: Performed By: #### D DAVIDSON, MG, PHOS, CMP, LIPID, URIC #### [facility] [address] [place] [address] Dr. Sarmad Patino EGFR-NON AF BURUNDIAN >60 Normal >=60 [facility] Comment on above: Performed By: #### D DAVIDSON, MG, PHOS, CMP, LIPID, URIC #### [facility] [address] [place] [address] Dr. Sarmad Patino Globulin (S) [Mass/Vol] 3.2 g/dL Normal [facility] Comment on above: Performed By: #### D DAVIDSON, MG, PHOS, CMP, LIPID, URIC #### [facility] [address] [place] [address] Dr. Sarmad Patino Glucose [Mass/Vol] 94 mg/dL Normal 74-106 [facility] Comment on above: Performed By: #### D DAVIDSON, MG, PHOS, CMP, LIPID, URIC #### [facility] [address] [place] [address] Dr. Sarmad Patino Potassium [Moles/Vol] 4.1 mmol/L Normal 3.5-5.1 [facility] Comment on above: Performed By: #### D DAVIDSON, MG, PHOS, CMP, LIPID, URIC #### [facility] [address] [place] [address] Dr. Sarmad Patino Protein [Mass/Vol] 7.1 g/dL Normal 6.4-8.2 [facility] Comment on above: Performed By: #### D DAVIDSON, MG, PHOS, CMP, LIPID, URIC #### [facility] [address] [place] [address] Dr. Sarmad Patino Sodium [Moles/Vol] 144 mmol/L Normal 136-145 [facility] Comment on above: Performed By: #### D DAVIDSON, MG, PHOS, CMP, LIPID, URIC #### [facility] [address] [place] [address] Dr. Sarmad Patino Urea nitrogen [Mass/Vol] 18.0 mg/dL Normal 7.0-18.0 [facility] Comment on above: Performed By: #### D DAVIDSON, MG, PHOS, CMP, LIPID, URIC #### [facility] [address] [place] [address] Dr. Sarmad Patino Urea nitrogen/Creatinine [Mass ratio] 24.3 mg/mg Normal [facility] Comment on above: Performed By: #### D DAVIDSON, MG, PHOS, CMP, LIPID, URIC #### [facility] [address] [address] [address] Sarmad Patino URIC ACID SERUMon 05-10-2022 Urate [Mass/Vol] 5.1 mg/dL Normal 2.6-6.0 [facility] Comment on above: Performed By: #### U MAXI, LIPID, MG, CMP, DBIL, PHOS #### [facility] [address] [address] [address] Sarmad Patino MYCOPHENOLIC ACIDon 04-17-19 Mycophenolic Acid 1.2 ug/mL Normal 1.0-3.5 [facility] Comment on above: Performed By: #### D DAVIDSON, MG, PHOS, CMP, LIPID, URIC #### [facility] [address] [address] [address] Sarmad Patino Mycophenolic Acid Glucuronide 37 ug/mL Normal 15-125 [facility] Comment on above: Result Comment: [facility] 's Reference Range: 35-100 mcg/mL. Performed By: #### D DAVIDSON, MG, PHOS, CMP, LIPID, URIC #### [facility] [address] [address] [address] Sarmad Patino FK506 (TACROLIMUS) WHOLE BLO ODon 04-10-2022 Tacrolimus (FK506), Blood 4.2 ng/mL Normal 2.0-20.0 [facility] Comment on above: Result Comment: Trou gh (immediately following transplant) 15.0 . Trough (steady state, 2 weeks or more after transplant): 3.0 - 8.0 . Performed by LC-MS/MS technology. Performed By: #### D DAVIDSON, MG, PHOS, CMP, LIPID, URIC #### [facility] [address] [address] [address] Sarmad Patino BILIRUBIN CONJUGATED (DIRECT )on 04-08-2022 BILI, CONJUGATED 0.1 mg/dL Normal 0.0-0.2 [facility] Comment on above: Performed By: #### U MAXI, LIPID, MG, CMP, DBIL, PHOS #### [facility] [address] [address] [address] Sarmad Patino CBC AUTO DIFFon 04-08-2022 BASO # 0.0 103/ul Normal 0.0-0.1 [facility] Comment on above: Performed By: #### D DAVIDSON, MG, PHOS, CMP, LIPID, URIC #### [facility] [address] [place] [address] Dr. Sarmad Patino Basophils/100 WBC (Bld) 0.3 % Normal 0.2-2.0 [facility] Comment on above: Performed By: #### D DAVIDSON, MG, PHOS, CMP, LIPID, URIC #### [facility] [address] [place] [address] Dr. Sarmad Patino EO # 0.1 103/ul Normal 0.0-0.7 [facility] Comment on above: Performed By: #### D DAVIDSON, MG, PHOS, CMP, LIPID, URIC #### [facility] [address] [place] [address] Dr. Sarmad Patino Eosinophils/100 WBC (Bld) 1.4 % Normal 0.9-7.0 [facility] Comment on above: Performed By: #### D DAVIDSON, MG, PHOS, CMP, LIPID, URIC #### [facility] [address] [place] [address] Dr. Sarmad Patino Erythrocyte distribution width (RBC) [Ratio] 15.8 % Critically high 11.0-15.0 [facility] Comment on above: Performed By: #### D DAVIDSON, MG, PHOS, CMP, LIPID, URIC #### [facility] [address] [place] [address] Dr. Sarmad Patino Hematocrit (Bld) [Volume fraction] 43.0 % Normal 36.0-48.0 [facility] Comment on above: Performed By: #### D DAVIDSON, MG, PHOS, CMP, LIPID, URIC #### [facility] [address] [place] [address] Dr. Sarmad Patino Hemoglobin (Bld) [Mass/Vol] 15.0 g/dL Normal 12.0-16.0 [facility] Comment on above: Performed By: #### D DAVIDSON, MG, PHOS, CMP, LIPID, URIC #### [facility] [address] [address] [address] Sarmad Patino IG # 0.01 10e3/ul Normal 0.00-0.03 [facility] Comment on above: Performed By: #### D DAVIDSON, MG, PHOS, CMP, LIPID, URIC #### [facility] [address] [place] [address] Dr. Sarmad Patino IG % 0.1 % Normal 0.0-0.5 [facility] Comment on above: Performed By: #### D DAVIDSON, MG, PHOS, CMP, LIPID, URIC #### [facility] [address] [place] [address] Dr. Sarmad Patino LYMPH # 1.3 103/ul Normal 1.2-3.8 [facility] Comment on above: Performed By: #### D DAVIDSON, MG, PHOS, CMP, LIPID, URIC #### [facility] [address] [place] [address] Dr. Sarmad Patino Lymphocytes/100 WBC (Bld) 18.3 % Critically low 20.5-60.0 [facility] Comment on above: Performed By: #### D DAVIDSON, MG, PHOS, CMP, LIPID, URIC #### [facility] [address] [place] [address] Dr. Sarmad Patino MANUAL DIFF REQ NO Normal [facility] Comment on above: Performed By: #### D DAVIDSON, MG, PHOS, CMP, LIPID, URIC #### [facility] [address] [place] [address] Dr. Sarmad Patino MCH (RBC) [Entitic mass] 29.7 pg Normal 26.7-34.0 [facility] Comment on above: Performed By: #### D DAVIDSON, MG, PHOS, CMP, LIPID, URIC #### [facility] [address] [place] [address] Dr. Sarmad Patino MCHC (RBC) [Mass/Vol] 34.9 g/dL Normal 29.9-35.2 [facility] Comment on above: Performed By: #### D DAVIDSON, MG, PHOS, CMP, LIPID, URIC #### [facility] [address] [place] [address] Dr. Sarmad Patino MCV (RBC) [Entitic vol] 85.1 fL Normal 81.0-99.0 [facility] Comment on above: Performed By: #### D DAVIDSON, MG, PHOS, CMP, LIPID, URIC #### [facility] [address] [place] [address] Dr. Sarmad Patino MONO # 0.7 103/ul Normal 0.3-0.8 [facility] Comment on above: Performed By: #### D DAVIDSON, MG, PHOS, CMP, LIPID, URIC #### [facility] [address] [place] [address] Dr. Sarmad Patino Monocytes/100 WBC (Bld) 9.8 % Normal 1.7-12.0 [facility] Comment on above: Performed By: #### D DAVIDSON, MG, PHOS, CMP, LIPID, URIC #### [facility] [address] [place] [address] Dr. Sarmad Patino NEUT # 5.1 103/ul Normal 1.4-6.5 [facility] Comment on above: Performed By: #### D DAVIDSON, MG, PHOS, CMP, LIPID, URIC #### [facility] [address] [place] [address] Dr. Sarmad Patino Neutrophils/100 WBC (Bld) 70.1 % Normal 43.0-75.0 [facility] Comment on above: Performed By: #### D DAVIDSON, MG, PHOS, CMP, LIPID, URIC #### [facility] [address] [place] [address] Dr. Sarmad Patino Platelet mean volume (Bld) [Entitic vol] 10.4 fL Normal 9.5-13.5 [facility] Comment on above: Performed By: #### D DAVIDSON, MG, PHOS, CMP, LIPID, URIC #### [facility] [address] [place] [address] Dr. Sarmad Patino PLT 229 103/ul Normal 150-450 [facility] Comment on above: Performed By: #### D DAVIDSON, MG, PHOS, CMP, LIPID, URIC #### [facility] [address] [address] [address] Sarmad Patino RBC 5.05 106/ul Normal 4.20-5.40 [facility] Comment on above: Performed By: #### D DAVIDSON, MG, PHOS, CMP, LIPID, URIC #### [facility] [address] [address] [address] Sarmad Patino WBC 7.2 103/ul Normal 4.0-11.0 [facility] Comment on above: Performed By: #### D DAVIDSON, MG, PHOS, CMP, LIPID, URIC #### [facility] [address] [address] [address] Sarmad Patino LIPID PROFILEon 04-08-2022 CHOL-HDL RATIO NORM SEE BELOW Normal [facility] Comment on above: Result Comment: 3.3 - 4.4 LOW RISK 4.4 - 7.1 AVERAGE RISK 7.1 - 11.0 MODERATE RISK >11.0 HIGH RISK Performed By: #### U MAXI, LIPID, MG, CMP, DBIL, PHOS #### [facility] [address] [address] [address] Sarmad Patino Cholesterol [Mass/Vol] 134 mg/dL Normal <=200 [facility] Comment on above: Performed By: #### U MAXI, LIPID, MG, CMP, DBIL, PHOS #### [facility] [address] [address] [address] Sarmad Patino Cholesterol in HDL [Mass/Vol] 55 mg/dL Normal 40-60 [facility] Comment on above: Performed By: #### U MAXI, LIPID, MG, CMP, DBIL, PHOS #### [facility] [address] [address] [address] Sarmad Patino Cholesterol in LDL [Mass/Vol] 56.6 mg/dL Normal [facility] Comment on above: Performed By: #### U MAXI, LIPID, MG, CMP, DBIL, PHOS #### [facility] [address] [address] [address] Sarmad Patino Cholesterol.total/Cho lesterol in HDL [Mass ratio] 2.4 {ratio} Normal [facility] Comment on above: Performed By: #### U MAXI, LIPID, MG, CMP, DBIL, PHOS #### [facility] [address] [address] [address] Sarmad Patino HDL NORMAL > or = 60 mg/dl - LO W CARDIOVASCULAR RISK <40 mg/dl - HIGH CARDIOVASCULAR RISK Normal [facility] Comment on above: Performed By: #### U MAXI, LIPID, MG, CMP, DBIL, PHOS #### [facility] [address] [address] [address] Sarmad Patino LDL CALC NORMAL SEE BELOW Normal [facility] Comment on above: Result Comment: <100 mg/dl OPTIMAL 100 - 129 mg/dl NEAR OR ABOVE OPTIMAL 130 - 159 mg/dl BORDERLINE HIGH 160 - 189 mg/dl HIGH >190 mg/dl VERY HIGH Performed By: #### U MAXI, LIPID, MG, CMP, DBIL, PHOS #### [facility] [address] [address] [address] Sarmad Patino Triglyceride [Mass/Vol] 112 mg/dL Normal <=150 [facility] Comment on above: Performed By: #### U MAXI, LIPID, MG, CMP, DBIL, PHOS #### [facility] [address] [address] [address] Sarmad Patino VLDL CALC 22.4 mg/dL Normal [facility] Comment on above: Performed By: #### U MAXI, LIPID, MG, CMP, DBIL, PHOS #### [facility] [address] [address] [address] Sarmad Patino MAGNESIUMon 04-08-2022 Magnesium [Mass/Vol] 1.8 mg/dL Normal 1.8-2.4 [facility] Comment on above: Performed By: #### U MAXI, LIPID, MG, CMP, DBIL, PHOS #### [facility] [address] [place] [address] Dr. Sarmad Patino PHOSPHORUSon 04-08-2022 Phosphate [Mass/Vol] 3.9 mg/dL Normal 2.6-4.7 [facility] Comment on above: Performed By: #### U MAXI, LIPID, MG, CMP, DBIL, PHOS #### [facility] [address] [address] [address] Sarmad Patino PROF 14(COMP METB)on 023 Albumin [Mass/Vol] 4.0 g/dL Normal 3.4-5.0 [facility] Comment on above: Performed By: #### U MAXI, LIPID, MG, CMP, DBIL, PHOS #### [facility] [address] [address] [address] Sarmad Patino Albumin/Globulin [Mass ratio] 1.3 {ratio} Normal [facility] Comment on above: Performed By: #### U MAXI, LIPID, MG, CMP, DBIL, PHOS #### [facility] [address] [place] [address] Dr. Sarmad Patino ALP [Catalytic activity/Vol] 108 U/L Normal 46-116 [facility] Comment on above: Performed By: #### U MAXI, LIPID, MG, CMP, DBIL, PHOS #### [facility] [address] [place] [address] Dr. Sarmad Patino ALT [Catalytic activity/Vol] 15 U/L Normal 14-59 [facility] Comment on above: Performed By: #### U MAXI, LIPID, MG, CMP, DBIL, PHOS #### [facility] [address] [place] [address] Dr. Sarmad Patino Anion gap [Moles/Vol] 14.3 mmol/L Normal [facility] Comment on above: Performed By: #### U MAXI, LIPID, MG, CMP, DBIL, PHOS #### [facility] [address] [address] [address] Sarmad Patino AST [Catalytic activity/Vol] 15 U/L Normal 15-37 [facility] Comment on above: Performed By: #### U MAXI, LIPID, MG, CMP, DBIL, PHOS #### [facility] [address] [address] [address] Sarmad Patino Bilirubin [Mass/Vol] 0.5 mg/dL Normal 0.2-1.0 [facility] Comment on above: Performed By: #### U MAXI, LIPID, MG, CMP, DBIL, PHOS #### [facility] [address] [address] [address] Sarmad Patino Calcium [Mass/Vol] 9.7 mg/dL Normal 8.5-10.1 [facility] Comment on above: Performed By: #### U MAXI, LIPID, MG, CMP, DBIL, PHOS #### [facility] [address] [address] [address] Sarmad Patino Chloride [Moles/Vol] 105 mmol/L Normal 98-107 [facility] Comment on above: Performed By: #### U MAXI, LIPID, MG, CMP, DBIL, PHOS #### [facility] [address] [place] [address] Dr. Sarmad Patino CO2 [Moles/Vol] 26.6 mmol/L Normal 21.0-32.0 [facility] Comment on above: Performed By: #### U MAXI, LIPID, MG, CMP, DBIL, PHOS #### [facility] [address] [place] [address] Dr. Sarmad Patino Creatinine [Mass/Vol] 0.80 mg/dL Normal 0.55-1.02 [facility] Comment on above: Performed By: #### U MAXI, LIPID, MG, CMP, DBIL, PHOS #### [facility] [address] [place] [address] Dr. Sarmad Patino EGFR-AF BURUNDIAN >60 Normal >=60 [facility] Comment on above: Performed By: #### U MAXI, LIPID, MG, CMP, DBIL, PHOS #### [facility] [address] [address] [address] Sarmad Patino EGFR-NON AF BURUNDIAN >60 Normal >=60 [facility] Comment on above: Performed By: #### U MAXI, LIPID, MG, CMP, DBIL, PHOS #### [facility] [address] [address] [address] Sarmad Patino Globulin (S) [Mass/Vol] 3.0 g/dL Normal [facility] Comment on above: Performed By: #### U MAXI, LIPID, MG, CMP, DBIL, PHOS #### [facility] [address] [place] [address] Dr. Sarmad Patino Glucose [Mass/Vol] 99 mg/dL Normal 74-106 [facility] Comment on above: Performed By: #### U MAXI, LIPID, MG, CMP, DBIL, PHOS #### [facility] [address] [place] [address] Dr. Sarmad Patino Potassium [Moles/Vol] 3.9 mmol/L Normal 3.5-5.1 [facility] Comment on above: Performed By: #### U MAXI, LIPID, MG, CMP, DBIL, PHOS #### [facility] [address] [place] [address] Dr. Sarmad Patino Protein [Mass/Vol] 7.0 g/dL Normal 6.4-8.2 [facility] Comment on above: Performed By: #### U MAXI, LIPID, MG, CMP, DBIL, PHOS #### [facility] [address] [place] [address] Dr. Sarmad Patino Sodium [Moles/Vol] 142 mmol/L Normal 136-145 [facility] Comment on above: Performed By: #### U MAXI, LIPID, MG, CMP, DBIL, PHOS #### [facility] [address] [place] [address] Dr. Sarmad Patino Urea nitrogen [Mass/Vol] 14.0 mg/dL Normal 7.0-18.0 [facility] Comment on above: Performed By: #### U MAXI, LIPID, MG, CMP, DBIL, PHOS #### [facility] [address] [place] [address] Dr. Sarmad Patino Urea nitrogen/Creatinine [Mass ratio] 17.5 mg/mg Normal [facility] Comment on above: Performed By: #### U MAXI, LIPID, MG, CMP, DBIL, PHOS #### [facility] [address] [place] [address] Dr. Sarmad Patino URIC ACID SERUMon 04-08-2022 Urate [Mass/Vol] 5.2 mg/dL Normal 2.6-6.0 [facility] Comment on above: Performed By: #### U MAXI, LIPID, MG, CMP, DBIL, PHOS #### [facility] [address] [address] [address] Sarmad Patino BK VIRUS PCR QUANTon 022 BKV DNA QUANT PCR PLASMA Negative Normal Negative [facility] Comment on above: Result Comment: No B K DNA detected. . The linear range of the assay is 22 - 100,000,000 IU/mL. Performed By: #### D DAVIDSON, MG, PHOS, CMP, LIPID, URIC #### [facility] [address] [address] [address] Sarmad Patino Log10 BKV DNA Plasma Normal [facility] Comment on above: Performed By: #### D DAVIDSON, MG, PHOS, CMP, LIPID, URIC #### [facility] [address] [address] [address] Sarmad Patino FK506 (TACROLIMUS) WHOLE BLO ODon 03-13-2022 Tacrolimus (FK506), Blood 5.0 ng/mL Normal 2.0-20.0 [facility] Comment on above: Result Comment: Trou gh (immediately following transplant) 15.0 . Trough (steady state, 2 weeks or more after transplant): 3.0 - 8.0 . Performed by LC-MS/MS technology. Performed By: #### D DAVIDSON, MG, PHOS, CMP, LIPID, URIC #### [facility] [address] [address] [address] Sarmad Patino GLYCOHEMOGLOBIN A1Con 2021 ADA RECOMMENDATION SEE BELOW Normal [facility] Comment on above: Result Comment: ADA RECOMMENDED LIMIT 4.0 - 6.0 ADA THERAPEUTIC TARGET < 7.0 ACTION SUGGESTED > 7.0 Performed By: #### D DAVIDSON, MG, PHOS, CMP, LIPID, URIC #### [facility] [address] [address] [address] Sarmad Patino Glucose [Mass/Vol] 111 mg/dL Normal [facility] Comment on above: Performed By: #### D DAVIDSON, MG, PHOS, CMP, LIPID, URIC #### [facility] [address] [address] [address] Sarmad Patino HbA1c (Bld) [Mass fraction] 5.5 % Normal 4.5-6.2 [facility] Comment on above: Performed By: #### D DAVIDSON, MG, PHOS, CMP, LIPID, URIC #### [facility] [address] [place] [address] Dr. Sarmad Patino LIVER PROFILEon 03-11-2022 Albumin [Mass/Vol] 3.7 g/dL Normal 3.4-5.0 [facility] Comment on above: Performed By: #### D DAVIDSON, MG, PHOS, CMP, LIPID, URIC #### [facility] [address] [place] [address] Dr. Sarmad Patino Albumin/Globulin [Mass ratio] 1.1 {ratio} Normal [facility] Comment on above: Performed By: #### D DAVIDSON, MG, PHOS, CMP, LIPID, URIC #### [facility] [address] [place] [address] Dr. Sarmad Patino ALP [Catalytic activity/Vol] 124 U/L Critically high 46-116 [facility] Comment on above: Performed By: #### D DAVIDSON, MG, PHOS, CMP, LIPID, URIC #### [facility] [address] [place] [address] Dr. Sarmad Patino ALT [Catalytic activity/Vol] 17 U/L Normal 14-59 [facility] Comment on above: Performed By: #### D DAVIDSON, MG, PHOS, CMP, LIPID, URIC #### [facility] [address] [place] [address] Dr. Sarmad Patino AST [Catalytic activity/Vol] 16 U/L Normal 15-37 [facility] Comment on above: Performed By: #### D DAVIDSON, MG, PHOS, CMP, LIPID, URIC #### [facility] [address] [place] [address] Dr. Sarmad Patino BILI, CONJUGATED 0.2 mg/dL Normal 0.0-0.2 [facility] Comment on above: Performed By: #### D DAVIDSON, MG, PHOS, CMP, LIPID, URIC #### [facility] [address] [address] [address] Sarmad Patino Bilirubin [Mass/Vol] 0.6 mg/dL Normal 0.2-1.0 [facility] Comment on above: Performed By: #### D DAVIDSON, MG, PHOS, CMP, LIPID, URIC #### [facility] [address] [place] [address] Dr. Sarmad Patino Globulin (S) [Mass/Vol] 3.4 g/dL Normal [facility] Comment on above: Performed By: #### D DAVIDSON, MG, PHOS, CMP, LIPID, URIC #### [facility] [address] [place] [address] Dr. Sarmad Patino Protein [Mass/Vol] 7.1 g/dL Normal 6.4-8.2 [facility] Comment on above: Performed By: #### D DAVIDSON, MG, PHOS, CMP, LIPID, URIC #### [facility] [address] [place] [address] Dr. Sarmad Patino MAGNESIUMon 03-11-2022 Magnesium [Mass/Vol] 1.6 mg/dL Critically low 1.8-2.4 [facility] Comment on above: Performed By: #### D DAVIDSON, MG, PHOS, CMP, LIPID, URIC #### [facility] [address] [place] [address] Dr. Sarmad Patino PHOSPHORUSon 03-11-2022 Phosphate [Mass/Vol] 3.5 mg/dL Normal 2.6-4.7 [facility] Comment on above: Performed By: #### D DAVIDSON, MG, PHOS, CMP, LIPID, URIC #### [facility] [address] [place] [address] Dr. Sarmad Patino URIC ACID SERUMon 03-11-2022 Urate [Mass/Vol] 5.3 mg/dL Normal 2.6-6.0 [facility] Comment on above: Performed By: #### D DAVIDSON, MG, PHOS, CMP, LIPID, URIC #### [facility] [address] [address] [address] Sarmad Patino MYCOPHENOLIC ACIDon 02-19-20 22 Mycophenolic Acid 1.5 ug/mL Normal 1.0-3.5 [facility] Comment on above: Performed By: #### D DAVIDSON, MG, PHOS, CMP, LIPID, URIC #### [facility] [address] [address] [address] Sarmad Patino Mycophenolic Acid Glucuronide 32 ug/mL Normal 15-125 [facility] Comment on above: Result Comment: [facility] 's Reference Range: 35-100 mcg/mL. Performed By: #### D DAVIDSON, MG, PHOS, CMP, LIPID, URIC #### [facility] [address] [address] [address] Sarmad Patino BK VIRUS PCR QUANTon 022 BKV DNA QUANT PCR PLASMA Negative Normal Negative [facility] Comment on above: Result Comment: No B K DNA detected. . The linear range of the assay is 22 - 100,000,000 IU/mL. Performed By: #### D DAVIDSON, MG, PHOS, CMP, LIPID, URIC #### [facility] [address] [address] [address] Sarmad Patino Log10 BKV DNA Plasma Normal [facility] Comment on above: Performed By: #### D DAVIDSON, MG, PHOS, CMP, LIPID, URIC #### [facility] [address] [address] [address] Sarmad Patino FK506 (TACROLIMUS) WHOLE BLO ODon 02-11-2022 Tacrolimus (FK506), Blood 4.4 ng/mL Normal 2.0-20.0 [facility] Comment on above: Result Comment: Trou gh (immediately following transplant) 15.0 . Trough (steady state, 2 weeks or more after transplant): 3.0 - 8.0 . Performed by LC-MS/MS technology. Performed By: #### U MAXI, LIPID, MG, CMP, DBIL, PHOS #### [facility] [address] [address] [address] Sarmad Patino BILIRUBIN CONJUGATED (DIRECT )on 02-08-2022 BILI, CONJUGATED 0.1 mg/dL Normal 0.0-0.2 [facility] Comment on above: Performed By: #### D DAVIDSON, MG, PHOS, CMP, LIPID, URIC #### [facility] [address] [place] [address] Dr. Sarmad Patino CBC AUTO DIFFon 02-08-2022 BASO # 0.0 103/ul Normal 0.0-0.1 [facility] Comment on above: Performed By: #### D DAVIDSON, MG, PHOS, CMP, LIPID, URIC #### [facility] [address] [place] [address] Dr. Sarmad Patino Basophils/100 WBC (Bld) 0.3 % Normal 0.2-2.0 [facility] Comment on above: Performed By: #### D DAVIDSON, MG, PHOS, CMP, LIPID, URIC #### [facility] [address] [place] [address] Dr. Sarmad Patino EO # 0.1 103/ul Normal 0.0-0.7 [facility] Comment on above: Performed By: #### D DAVIDSON, MG, PHOS, CMP, LIPID, URIC #### [facility] [address] [place] [address] Dr. Sarmad Patino Eosinophils/100 WBC (Bld) 1.0 % Normal 0.9-7.0 [facility] Comment on above: Performed By: #### D DAVIDSON, MG, PHOS, CMP, LIPID, URIC #### [facility] [address] [place] [address] Dr. Sarmad Patino Erythrocyte distribution width (RBC) [Ratio] 15.9 % Critically high 11.0-15.0 [facility] Comment on above: Performed By: #### D DAVIDSON, MG, PHOS, CMP, LIPID, URIC #### [facility] [address] [place] [address] Dr. Sarmad Patino Hematocrit (Bld) [Volume fraction] 42.2 % Normal 36.0-48.0 [facility] Comment on above: Performed By: #### D DAVIDSON, MG, PHOS, CMP, LIPID, URIC #### [facility] [address] [address] [address] Sarmad Patino Hemoglobin (Bld) [Mass/Vol] 13.8 g/dL Normal 12.0-16.0 [facility] Comment on above: Performed By: #### D DAVIDSON, MG, PHOS, CMP, LIPID, URIC #### [facility] [address] [address] [address] Sarmad Patino IG # 0.10 10e3/ul Critically high 0.00-0.03 [facility] Comment on above: Performed By: #### D DAVIDSON, MG, PHOS, CMP, LIPID, URIC #### [facility] [address] [place] [address] Dr. aSrmad Patino IG % 1.1 % Critically high 0.0-0.5 [facility] Comment on above: Performed By: #### D DAVIDSON, MG, PHOS, CMP, LIPID, URIC #### [facility] [address] [place] [address] Dr. Sarmad Patino LYMPH # 1.2 103/ul Normal 1.2-3.8 [facility] Comment on above: Performed By: #### D DAVIDSON, MG, PHOS, CMP, LIPID, URIC #### [facility] [address] [place] [address] Dr. Sarmad Patino Lymphocytes/100 WBC (Bld) 12.6 % Critically low 20.5-60.0 [facility] Comment on above: Performed By: #### D DAVIDSON, MG, PHOS, CMP, LIPID, URIC #### [facility] [address] [address] [address] Sarmad Patino MANUAL DIFF REQ NO Normal [facility] Comment on above: Performed By: #### D DAVIDSON, MG, PHOS, CMP, LIPID, URIC #### [facility] [address] [place] [address] Dr. Sarmad Patino MCH (RBC) [Entitic mass] 28.3 pg Normal 26.7-34.0 [facility] Comment on above: Performed By: #### D DAVIDSON, MG, PHOS, CMP, LIPID, URIC #### [facility] [address] [place] [address] Dr. Sarmad Patino MCHC (RBC) [Mass/Vol] 32.7 g/dL Normal 29.9-35.2 [facility] Comment on above: Performed By: #### D DAVIDSON, MG, PHOS, CMP, LIPID, URIC #### [facility] [address] [place] [address] Dr. Sarmad Patino MCV (RBC) [Entitic vol] 86.7 fL Normal 81.0-99.0 [facility] Comment on above: Performed By: #### D DAVIDSON, MG, PHOS, CMP, LIPID, URIC #### [facility] [address] [place] [address] Dr. Sarmad Patino MONO # 1.0 103/ul Critically high 0.3-0.8 [facility] Comment on above: Performed By: #### D DAVIDSON, MG, PHOS, CMP, LIPID, URIC #### [facility] [address] [place] [address] Dr. Sarmad Patino Monocytes/100 WBC (Bld) 10.7 % Normal 1.7-12.0 [facility] Comment on above: Performed By: #### D DAVIDSON, MG, PHOS, CMP, LIPID, URIC #### [facility] [address] [place] [address] Dr. Sarmad Patino NEUT # 6.9 103/ul Critically high 1.4-6.5 [facility] Comment on above: Performed By: #### D DAVIDSON, MG, PHOS, CMP, LIPID, URIC #### [facility] [address] [place] [address] Dr. Sarmad Patino Neutrophils/100 WBC (Bld) 74.3 % Normal 43.0-75.0 [facility] Comment on above: Performed By: #### D DAVIDSON, MG, PHOS, CMP, LIPID, URIC #### [facility] [address] [place] [address] Dr. Sarmad Patino Platelet mean volume (Bld) [Entitic vol] 11.1 fL Normal 9.5-13.5 [facility] Comment on above: Performed By: #### D DAVIDSON, MG, PHOS, CMP, LIPID, URIC #### [facility] [address] [address] [address] Sarmad Patino PLT 307 103/ul Normal 150-450 [facility] Comment on above: Performed By: #### D DAVIDSON, MG, PHOS, CMP, LIPID, URIC #### [facility] [address] [address] [address] Sarmad Patino RBC 4.87 106/ul Normal 4.20-5.40 [facility] Comment on above: Performed By: #### D DAVIDSON, MG, PHOS, CMP, LIPID, URIC #### [facility] [address] [address] [address] Sarmad Patino WBC 9.3 103/ul Normal 4.0-11.0 [facility] Comment on above: Performed By: #### D DAVIDSON, MG, PHOS, CMP, LIPID, URIC #### [facility] [address] [address] [address] Sarmad Patino GLYCOHEMOGLOBIN A1Con 2021 ADA RECOMMENDATION SEE BELOW Normal [facility] Comment on above: Result Comment: ADA RECOMMENDED LIMIT 4.0 - 6.0 ADA THERAPEUTIC TARGET < 7.0 ACTION SUGGESTED > 7.0 Performed By: #### D DAVIDSON, MG, PHOS, CMP, LIPID, URIC #### [facility] [address] [address] [address] Sarmad Patino Glucose [Mass/Vol] 134 mg/dL Normal [facility] Comment on above: Performed By: #### D DAVIDSON, MG, PHOS, CMP, LIPID, URIC #### [facility] [address] [address] [address] Sarmad Patino HbA1c (Bld) [Mass fraction] 6.3 % Critically high 4.5-6.2 [facility] Comment on above: Performed By: #### D DAVIDSON, MG, PHOS, CMP, LIPID, URIC #### [facility] [address] [address] [address] Sarmad Patino LIPID PROFILEon 02-08-2022 CHOL-HDL RATIO NORM SEE BELOW Normal [facility] Comment on above: Result Comment: 3.3 - 4.4 LOW RISK 4.4 - 7.1 AVERAGE RISK 7.1 - 11.0 MODERATE RISK >11.0 HIGH RISK Performed By: #### D DAVIDSON, MG, PHOS, CMP, LIPID, URIC #### [facility] [address] [address] [address] Sarmad Patino Cholesterol [Mass/Vol] 180 mg/dL Normal <=200 [facility] Comment on above: Performed By: #### D DAVIDSON, MG, PHOS, CMP, LIPID, URIC #### [facility] [address] [address] [address] Sarmad Patino Cholesterol in HDL [Mass/Vol] 58 mg/dL Normal 40-60 [facility] Comment on above: Performed By: #### D DAVIDSON, MG, PHOS, CMP, LIPID, URIC #### [facility] [address] [address] [address] Sarmad Patino Cholesterol in LDL [Mass/Vol] 86.6 mg/dL Normal [facility] Comment on above: Performed By: #### D DAVIDSON, MG, PHOS, CMP, LIPID, URIC #### [facility] [address] [address] [address] Sarmad Patino Cholesterol.total/Cho lesterol in HDL [Mass ratio] 3.1 {ratio} Normal [facility] Comment on above: Performed By: #### D DAVIDSON, MG, PHOS, CMP, LIPID, URIC #### [facility] [address] [address] [address] Sarmad Patino HDL NORMAL > or = 60 mg/dl - LO W CARDIOVASCULAR RISK <40 mg/dl - HIGH CARDIOVASCULAR RISK Normal [facility] Comment on above: Performed By: #### D DAVIDSON, MG, PHOS, CMP, LIPID, URIC #### [facility] [address] [address] [address] Sarmad Patino LDL CALC NORMAL SEE BELOW Normal [facility] Comment on above: Result Comment: <100 mg/dl OPTIMAL 100 - 129 mg/dl NEAR OR ABOVE OPTIMAL 130 - 159 mg/dl BORDERLINE HIGH 160 - 189 mg/dl HIGH >190 mg/dl VERY HIGH Performed By: #### D DAVIDSON, MG, PHOS, CMP, LIPID, URIC #### [facility] [address] [address] [address] Sarmad Patino Triglyceride [Mass/Vol] 177 mg/dL Critically high <=150 [facility] Comment on above: Performed By: #### D DAVIDSON, MG, PHOS, CMP, LIPID, URIC #### [facility] [address] [place] [address] Dr. Sarmad Patino VLDL CALC 35.4 mg/dL Normal [facility] Comment on above: Performed By: #### D DAVIDSON, MG, PHOS, CMP, LIPID, URIC #### [facility] [address] [place] [address] Dr. Sarmad Patino MAGNESIUMon 02-08-2022 Magnesium [Mass/Vol] 1.8 mg/dL Normal 1.8-2.4 [facility] Comment on above: Performed By: #### D DAVIDSON, MG, PHOS, CMP, LIPID, URIC #### [facility] [address] [place] [address] Dr. Sarmad Patino PHOSPHORUSon 02-08-2022 Phosphate [Mass/Vol] 3.3 mg/dL Normal 2.6-4.7 [facility] Comment on above: Performed By: #### D DAVIDSON, MG, PHOS, CMP, LIPID, URIC #### [facility] [address] [place] [address] Dr. Sarmad Patino PROF 14(COMP METB)on 022 Albumin [Mass/Vol] 3.8 g/dL Normal 3.4-5.0 [facility] Comment on above: Performed By: #### D DAVIDSON, MG, PHOS, CMP, LIPID, URIC #### [facility] [address] [place] [address] Dr. Sarmad Patino Albumin/Globulin [Mass ratio] 1.3 {ratio} Normal [facility] Comment on above: Performed By: #### D DAVIDSON, MG, PHOS, CMP, LIPID, URIC #### [facility] [address] [place] [address] Dr. Sarmad Patino ALP [Catalytic activity/Vol] 144 U/L Critically high 46-116 [facility] Comment on above: Performed By: #### D DAVIDSON, MG, PHOS, CMP, LIPID, URIC #### [facility] [address] [address] [address] Sarmad Patino ALT [Catalytic activity/Vol] 24 U/L Normal 14-59 [facility] Comment on above: Performed By: #### D DAVIDSON, MG, PHOS, CMP, LIPID, URIC #### [facility] [address] [place] [address] Dr. Sarmad Patino Anion gap [Moles/Vol] 13.7 mmol/L Normal Th [facility] Comment on above: Performed By: #### D DAVIDSON, MG, PHOS, CMP, LIPID, URIC #### [facility] [address] [place] [address] Dr. Sarmad Patino AST [Catalytic activity/Vol] 19 U/L Normal 15-37 [facility] Comment on above: Performed By: #### D DAVIDSON, MG, PHOS, CMP, LIPID, URIC #### [facility] [address] [place] [address] Dr. Sarmad Patino Bilirubin [Mass/Vol] 0.5 mg/dL Normal 0.2-1.0 [facility] Comment on above: Performed By: #### D DAVIDSON, MG, PHOS, CMP, LIPID, URIC #### [facility] [address] [place] [address] Dr. Sarmad Patino Calcium [Mass/Vol] 9.6 mg/dL Normal 8.5-10.1 [facility] Comment on above: Performed By: #### D DAVIDSON, MG, PHOS, CMP, LIPID, URIC #### [facility] [address] [address] [address] Sarmad Patino Chloride [Moles/Vol] 103 mmol/L Normal 98-107 [facility] Comment on above: Performed By: #### D DAVIDSON, MG, PHOS, CMP, LIPID, URIC #### [facility] [address] [place] [address] Dr. Sarmad Patino CO2 [Moles/Vol] 26.6 mmol/L Normal 21.0-32.0 [facility] Comment on above: Performed By: #### D DAVIDSON, MG, PHOS, CMP, LIPID, URIC #### [facility] [address] [address] [address] Sarmad Patino Creatinine [Mass/Vol] 0.75 mg/dL Normal 0.55-1.02 [facility] Comment on above: Performed By: #### D DAVIDSON, MG, PHOS, CMP, LIPID, URIC #### [facility] [address] [address] [address] Sarmad Patino EGFR-AF BURUNDIAN >60 Normal >=60 [facility] Comment on above: Performed By: #### D DAVIDSON, MG, PHOS, CMP, LIPID, URIC #### [facility] [address] [address] [address] Sarmad Patino EGFR-NON AF BURUNDIAN >60 Normal >=60 [facility] Comment on above: Performed By: #### D DAVIDSON, MG, PHOS, CMP, LIPID, URIC #### [facility] [address] [address] [address] Sarmad Patino Globulin (S) [Mass/Vol] 3.0 g/dL Normal [facility] Comment on above: Performed By: #### D DAVIDSON, MG, PHOS, CMP, LIPID, URIC #### [facility] [address] [address] [address] Sarmad Patino Glucose [Mass/Vol] 99 mg/dL Normal 74-106 [facility] Comment on above: Performed By: #### D DAVIDSON, MG, PHOS, CMP, LIPID, URIC #### [facility] [address] [address] [address] Sarmad Patino Potassium [Moles/Vol] 4.3 mmol/L Normal 3.5-5.1 [facility] Comment on above: Performed By: #### D DAVIDSON, MG, PHOS, CMP, LIPID, URIC #### [facility] [address] [address] [address] Sarmad Patino Protein [Mass/Vol] 6.8 g/dL Normal 6.4-8.2 [facility] Comment on above: Performed By: #### D DAVIDSON, MG, PHOS, CMP, LIPID, URIC #### [facility] [address] [place] [address] Dr. Sarmad Patino Sodium [Moles/Vol] 139 mmol/L Normal 136-145 [facility] Comment on above: Performed By: #### D DAVIDSON, MG, PHOS, CMP, LIPID, URIC #### [facility] [address] [place] [address] Dr. Sarmad Patino Urea nitrogen [Mass/Vol] 16.0 mg/dL Normal 7.0-18.0 [facility] Comment on above: Performed By: #### D DAVIDSON, MG, PHOS, CMP, LIPID, URIC #### [facility] [address] [place] [address] Dr. Sarmad Patino Urea nitrogen/Creatinine [Mass ratio] 21.3 mg/mg Normal [facility] Comment on above: Performed By: #### D DAVIDSON, MG, PHOS, CMP, LIPID, URIC #### [facility] [address] [place] [address] Dr. Sarmad Patino URIC ACID SERUMon 02-08-2022 Urate [Mass/Vol] 5.4 mg/dL Normal 2.6-6.0 [facility] Comment on above: Performed By: #### D DAVIDSON, MG, PHOS, CMP, LIPID, URIC #### [facility] [address] [place] [address] Dr. Sarmad Patino BK VIRUS PCR QUANTon 022 BKV DNA QUANT PCR PLASMA 27 IU/mL Normal Negative [facility] Comment on above: Result Comment: The linear range of the assay is 22 - 100,000,000 IU/mL. Performed By: #### D DAVIDSON, MG, PHOS, CMP, LIPID, URIC #### [facility] [address] [place] [address] Dr. Sarmad Patino Log10 BKV DNA Plasma 1.431 log10 IU/mL Normal [facility] Comment on above: Performed By: #### D DAVIDSON, MG, PHOS, CMP, LIPID, URIC #### [facility] [address] [place] [address] Dr. Sarmad Patino FK506 (TACROLIMUS) WHOLE BLO ODon 01-30-2022 Tacrolimus (FK506), Blood 6.5 ng/mL Normal 2.0-20.0 [facility] Comment on above: Result Comment: Trou gh (immediately following transplant) 15.0 . Trough (steady state, 2 weeks or more after transplant): 3.0 - 8.0 . Performed by LC-MS/MS technology. Performed By: #### D DAVIDSON, MG, PHOS, CMP, LIPID, URIC #### [facility] [address] [place] [address] Dr. Sarmad Patino RAPAMUNE(SIROLIMUS)on 2021 Rapamune(Sirolimus), whole blood 9.9 ng/mL Normal 3.0-20.0 [facility] Comment on above: Result Comment: Perf ormed by LC/MS-MS technology . This test was developed and its performance characteristics determined by [employer]. It has not been cleared or approved by the Food and Drug Administration. Performed By: #### D DAVIDSON, MG, PHOS, CMP, LIPID, URIC #### [facility] [address] [place] [address] Dr. Sarmad Patino BILIRUBIN CONJUGATED (DIRECT )on 01-28-2022 BILI, CONJUGATED 0.1 mg/dL Normal 0.0-0.2 [facility] Comment on above: Performed By: #### D DAVIDSON, MG, PHOS, CMP, LIPID, URIC #### [facility] [address] [place] [address] Dr. Sarmad Patino CBC AUTO DIFFon 01-28-2022 BASO # 0.0 103/ul Normal 0.0-0.1 [facility] Comment on above: Performed By: #### D DAVIDSON, MG, PHOS, CMP, LIPID, URIC #### [facility] [address] [place] [address] Dr. Sarmad Patino Basophils/100 WBC (Bld) 0.3 % Normal 0.2-2.0 [facility] Comment on above: Performed By: #### D DAVIDSON, MG, PHOS, CMP, LIPID, URIC #### [facility] [address] [address] [address] Sarmad Patino EO # 0.2 103/ul Normal 0.0-0.7 [facility] Comment on above: Performed By: #### D DAVIDSON, MG, PHOS, CMP, LIPID, URIC #### [facility] [address] [address] [address] Sarmad Patino Eosinophils/100 WBC (Bld) 3.1 % Normal 0.9-7.0 [facility] Comment on above: Performed By: #### D DAVIDSON, MG, PHOS, CMP, LIPID, URIC #### [facility] [address] [place] [address] Dr. Sarmad Patino Erythrocyte distribution width (RBC) [Ratio] 15.4 % Critically high 11.0-15.0 [facility] Comment on above: Performed By: #### D DAVIDSON, MG, PHOS, CMP, LIPID, URIC #### [facility] [address] [place] [address] Dr. Sarmad Patino Hematocrit (Bld) [Volume fraction] 42.6 % Normal 36.0-48.0 [facility] Comment on above: Performed By: #### D DAVIDSON, MG, PHOS, CMP, LIPID, URIC #### [facility] [address] [place] [address] Dr. Sarmad Patino Hemoglobin (Bld) [Mass/Vol] 14.0 g/dL Normal 12.0-16.0 [facility] Comment on above: Performed By: #### D DAVIDSON, MG, PHOS, CMP, LIPID, URIC #### [facility] [address] [place] [address] Dr. Sarmad Patino IG # 0.05 10e3/ul Critically high 0.00-0.03 [facility] Comment on above: Performed By: #### D DAVIDSON, MG, PHOS, CMP, LIPID, URIC #### [facility] [address] [place] [address] Dr. Sarmad Patino IG % 0.7 % Critically high 0.0-0.5 [facility] Comment on above: Performed By: #### D DAVIDSON, MG, PHOS, CMP, LIPID, URIC #### [facility] [address] [place] [address] Dr. Sarmad Patino LYMPH # 1.1 103/ul Critically low 1.2-3.8 [facility] Comment on above: Performed By: #### D DAVIDSON, MG, PHOS, CMP, LIPID, URIC #### [facility] [address] [place] [address] Dr. Sarmda Patino Lymphocytes/100 WBC (Bld) 15.8 % Critically low 20.5-60.0 [facility] Comment on above: Performed By: #### D DAVIDSON, MG, PHOS, CMP, LIPID, URIC #### [facility] [address] [place] [address] Dr. Sarmad Patino MANUAL DIFF REQ NO Normal [facility] Comment on above: Performed By: #### D DAVIDSON, MG, PHOS, CMP, LIPID, URIC #### [facility] [address] [place] [address] Dr. Sarmad Patino MCH (RBC) [Entitic mass] 28.3 pg Normal 26.7-34.0 [facility] Comment on above: Performed By: #### D DAVIDSON, MG, PHOS, CMP, LIPID, URIC #### [facility] [address] [place] [address] Dr. Sarmad Patino MCHC (RBC) [Mass/Vol] 32.9 g/dL Normal 29.9-35.2 [facility] Comment on above: Performed By: #### D DAVIDSON, MG, PHOS, CMP, LIPID, URIC #### [facility] [address] [place] [address] Dr. Sarmad Patino MCV (RBC) [Entitic vol] 86.2 fL Normal 81.0-99.0 [facility] Comment on above: Performed By: #### D DAVIDSON, MG, PHOS, CMP, LIPID, URIC #### [facility] [address] [place] [address] Dr. Sarmad Patino MONO # 0.8 103/ul Normal 0.3-0.8 [facility] Comment on above: Performed By: #### D DAVIDSON, MG, PHOS, CMP, LIPID, URIC #### [facility] [address] [place] [address] Dr. Sarmad Patino Monocytes/100 WBC (Bld) 11.0 % Normal 1.7-12.0 [facility] Comment on above: Performed By: #### D DAVIDSON, MG, PHOS, CMP, LIPID, URIC #### [facility] [address] [address] [address] Sarmad Patino NEUT # 4.8 103/ul Normal 1.4-6.5 [facility] Comment on above: Performed By: #### D DAVIDSON, MG, PHOS, CMP, LIPID, URIC #### [facility] [address] [place] [address] Dr. Sarmad Patino Neutrophils/100 WBC (Bld) 69.1 % Normal 43.0-75.0 [facility] Comment on above: Performed By: #### D DAVIDSON, MG, PHOS, CMP, LIPID, URIC #### [facility] [address] [place] [address] Dr. Sarmad Patino Platelet mean volume (Bld) [Entitic vol] 10.8 fL Normal 9.5-13.5 [facility] Comment on above: Performed By: #### D DAVIDSON, MG, PHOS, CMP, LIPID, URIC #### [facility] [address] [place] [address] Dr. Sarmad Patino PLT 208 103/ul Normal 150-450 [facility] Comment on above: Performed By: #### D DAVIDSON, MG, PHOS, CMP, LIPID, URIC #### [facility] [address] [place] [address] Dr. Sarmad Patino RBC 4.94 106/ul Normal 4.20-5.40 [facility] Comment on above: Performed By: #### D DAVIDSON, MG, PHOS, CMP, LIPID, URIC #### [facility] [address] [place] [address] Dr. Sarmad Patino WBC 7.0 103/ul Normal 4.0-11.0 [facility] Comment on above: Performed By: #### D DAVIDSON, MG, PHOS, CMP, LIPID, URIC #### [facility] [address] [address] [address] Sarmad Patino GLYCOHEMOGLOBIN A1Con 2021 ADA RECOMMENDATION SEE BELOW Normal [facility] Comment on above: Result Comment: ADA RECOMMENDED LIMIT 4.0 - 6.0 ADA THERAPEUTIC TARGET < 7.0 ACTION SUGGESTED > 7.0 Performed By: #### D ADVIDSON, MG, PHOS, CMP, LIPID, URIC #### [facility] [address] [address] [address] Sarmad Patino Glucose [Mass/Vol] 137 mg/dL Normal [facility] Comment on above: Performed By: #### D DAVIDSON, MG, PHOS, CMP, LIPID, URIC #### [facility] [address] [place] [address] Dr. Sarmad Patino HbA1c (Bld) [Mass fraction] 6.4 % Critically high 4.5-6.2 [facility] Comment on above: Performed By: #### D DAVIDSON, MG, PHOS, CMP, LIPID, URIC #### [facility] [address] [address] [address] Sarmad Patino LIPID PROFILEon 01-28-2022 CHOL-HDL RATIO NORM SEE BELOW Normal [facility] Comment on above: Result Comment: 3.3 - 4.4 LOW RISK 4.4 - 7.1 AVERAGE RISK 7.1 - 11.0 MODERATE RISK >11.0 HIGH RISK Performed By: #### D DAVIDSON, MG, PHOS, CMP, LIPID, URIC #### [facility] [address] [address] [address] Sarmad Patino Cholesterol [Mass/Vol] 209 mg/dL Critically high <=200 [facility] Comment on above: Performed By: #### D DAVIDSON, MG, PHOS, CMP, LIPID, URIC #### [facility] [address] [address] [address] Sarmad Patino Cholesterol in HDL [Mass/Vol] 59 mg/dL Normal 40-60 [facility] Comment on above: Performed By: #### D DAVIDSON, MG, PHOS, CMP, LIPID, URIC #### [facility] [address] [address] [address] Sarmad Patino Cholesterol in LDL [Mass/Vol] 100.4 mg/dL Normal [facility] Comment on above: Performed By: #### D DAVIDSON, MG, PHOS, CMP, LIPID, URIC #### [facility] [address] [address] [address] Sarmad Patino Cholesterol.total/Cho lesterol in HDL [Mass ratio] 3.5 {ratio} Normal [facility] Comment on above: Performed By: #### D DAVIDSON, MG, PHOS, CMP, LIPID, URIC #### [facility] [address] [address] [address] Sarmad Patino HDL NORMAL > or = 60 mg/dl - LO W CARDIOVASCULAR RISK <40 mg/dl - HIGH CARDIOVASCULAR RISK Normal [facility] Comment on above: Performed By: #### D DAVIDSON, MG, PHOS, CMP, LIPID, URIC #### [facility] [address] [address] [address] Sarmad Patino LDL CALC NORMAL SEE BELOW Normal [facility] Comment on above: Result Comment: <100 mg/dl OPTIMAL 100 - 129 mg/dl NEAR OR ABOVE OPTIMAL 130 - 159 mg/dl BORDERLINE HIGH 160 - 189 mg/dl HIGH >190 mg/dl VERY HIGH Performed By: #### D DAVIDSON, MG, PHOS, CMP, LIPID, URIC #### [facility] [address] [address] [address] Sarmad Patino Triglyceride [Mass/Vol] 248 mg/dL Critically high <=150 [facility] Comment on above: Performed By: #### D DAVIDSON, MG, PHOS, CMP, LIPID, URIC #### [facility] [address] [address] [address] Sarmad Patino VLDL CALC 49.6 mg/dL Normal [facility] Comment on above: Performed By: #### D DAVIDSON, MG, PHOS, CMP, LIPID, URIC #### [facility] [address] [address] [address] Sarmad Patino MAGNESIUMon 01-28-2022 Magnesium [Mass/Vol] 1.6 mg/dL Critically low 1.8-2.4 [facility] Comment on above: Performed By: #### D DAVIDSON, MG, PHOS, CMP, LIPID, URIC #### [facility] [address] [place] [address] Dr. Sarmad Patino PHOSPHORUSon 01-28-2022 Phosphate [Mass/Vol] 2.7 mg/dL Normal 2.6-4.7 [facility] Comment on above: Performed By: #### D DAVIDSON, MG, PHOS, CMP, LIPID, URIC #### [facility] [address] [place] [address] Dr. Sarmad Patino PROF 14(COMP METB)on 022 Albumin [Mass/Vol] 3.3 g/dL Critically low 3.4-5.0 [facility] Comment on above: Performed By: #### D DAVIDSON, MG, PHOS, CMP, LIPID, URIC #### [facility] [address] [place] [address] Dr. Sarmad Patino Albumin/Globulin [Mass ratio] 0.9 {ratio} Normal [facility] Comment on above: Performed By: #### D DAVIDSON, MG, PHOS, CMP, LIPID, URIC #### [facility] [address] [place] [address] Dr. Sarmad Patino ALP [Catalytic activity/Vol] 124 U/L Critically high 46-116 [facility] Comment on above: Performed By: #### D DAIVDSON, MG, PHOS, CMP, LIPID, URIC #### [facility] [address] [place] [address] Dr. Sarmad Patino ALT [Catalytic activity/Vol] 28 U/L Normal 14-59 [facility] Comment on above: Performed By: #### D DAVIDSON, MG, PHOS, CMP, LIPID, URIC #### [facility] [address] [place] [address] Dr. Sarmad Patino Anion gap [Moles/Vol] 12.0 mmol/L Normal [facility] Comment on above: Performed By: #### D DAVIDSON, MG, PHOS, CMP, LIPID, URIC #### [facility] [address] [address] [address] Sarmad Patino AST [Catalytic activity/Vol] 20 U/L Normal 15-37 [facility] Comment on above: Performed By: #### D DAVIDSON, MG, PHOS, CMP, LIPID, URIC #### [facility] [address] [place] [address] Dr. Sarmad Patino Bilirubin [Mass/Vol] 0.5 mg/dL Normal 0.2-1.0 [facility] Comment on above: Performed By: #### D DAVIDSON, MG, PHOS, CMP, LIPID, URIC #### [facility] [address] [address] [address] Sarmad Patino Calcium [Mass/Vol] 9.1 mg/dL Normal 8.5-10.1 [facility] Comment on above: Performed By: #### D DAVIDSON, MG, PHOS, CMP, LIPID, URIC #### [facility] [address] [address] [address] Sarmad Patino Chloride [Moles/Vol] 104 mmol/L Normal 98-107 [facility] Comment on above: Performed By: #### D DAVIDSON, MG, PHOS, CMP, LIPID, URIC #### [facility] [address] [place] [address] Dr. Sarmad Patino CO2 [Moles/Vol] 25.7 mmol/L Normal 21.0-32.0 [facility] Comment on above: Performed By: #### D DAVIDSON, MG, PHOS, CMP, LIPID, URIC #### [facility] [address] [place] [address] Dr. Sarmad Patino Creatinine [Mass/Vol] 0.77 mg/dL Normal 0.55-1.02 [facility] Comment on above: Performed By: #### D DAVIDSON, MG, PHOS, CMP, LIPID, URIC #### [facility] [address] [place] [address] Dr. Sarmad Patino EGFR-AF BURUNDIAN >60 Normal >=60 [facility] Comment on above: Performed By: #### D DAVIDSON, MG, PHOS, CMP, LIPID, URIC #### [facility] [address] [address] [address] Sarmad Patino EGFR-NON AF BURUNDIAN >60 Normal >=60 [facility] Comment on above: Performed By: #### D DAVIDSON, MG, PHOS, CMP, LIPID, URIC #### [facility] [address] [address] [address] Sarmad Patino Globulin (S) [Mass/Vol] 3.7 g/dL Normal [facility] Comment on above: Performed By: #### D DAVIDSON, MG, PHOS, CMP, LIPID, URIC #### [facility] [address] [address] [address] Sarmad Patino Glucose [Mass/Vol] 108 mg/dL Critically high 74-106 [facility] Comment on above: Performed By: #### D DAVIDSON, MG, PHOS, CMP, LIPID, URIC #### [facility] [address] [place] [address] Dr. Sarmad Patino Potassium [Moles/Vol] 3.7 mmol/L Normal 3.5-5.1 [facility] Comment on above: Performed By: #### D DAVIDSON, MG, PHOS, CMP, LIPID, URIC #### [facility] [address] [place] [address] Dr. Sarmad Patino Protein [Mass/Vol] 7.0 g/dL Normal 6.4-8.2 [facility] Comment on above: Performed By: #### D DAVIDSON, MG, PHOS, CMP, LIPID, URIC #### [facility] [address] [place] [address] Dr. Sarmad Patino Sodium [Moles/Vol] 138 mmol/L Normal 136-145 [facility] Comment on above: Performed By: #### D DAVIDSON, MG, PHOS, CMP, LIPID, URIC #### [facility] [address] [place] [address] Dr. Sarmad Patino Urea nitrogen [Mass/Vol] 15.0 mg/dL Normal 7.0-18.0 [facility] Comment on above: Performed By: #### D DAVIDSON, MG, PHOS, CMP, LIPID, URIC #### [facility] [address] [place], [place] [address] Dr. Sarmad Patino Urea nitrogen/Creatinine [Mass ratio] 19.5 mg/mg Normal [facility] Comment on above: Performed By: #### D DAVIDSON, MG, PHOS, CMP, LIPID, URIC #### [facility] [address] [address] [address] Sarmad Patino URIC ACID SERUMon 01-28-2022 Urate [Mass/Vol] 4.3 mg/dL Normal 2.6-6.0 [facility] Comment on above: Performed By: #### D DAVIDSON, MG, PHOS, CMP, LIPID, URIC #### [facility] [id number] Sarmad Patino Quick Strepon 01-12-2022 S. pyogenes Org specific cx Ql (Throat) Negative [facility] Other Quick Strep [facility] Other XR CHEST 1 Von 01-07-2022 XR [...] ARTEMIO BERNARD Date: 2022-01-07 15:00 Normal [facility] CBC W MANUAL DIFFon 01-04-20 22 ATYPICAL LYMPH # 1.40 103/ul Normal [facility] Comment on above: Performed By: #### D DAVIDSON, MG, PHOS, CMP, LIPID, URIC #### [facility] [id number] Sarmad Patino ATYPICAL LYMPH % 10 % Normal [facility] Comment on above: Performed By: #### D DAVIDSON, MG, PHOS, CMP, LIPID, URIC #### [facility] [address] [address] [address] Sarmad Patino BAND # 0.6 103/ul Critically high 0.0-0.3 [facility] Comment on above: Performed By: #### D DAIVDSON, MG, PHOS, CMP, LIPID, URIC #### [facility] [address] [address] [address] Sarmad Patino BAND % 4 % Normal 0-5 [facility] Comment on above: Performed By: #### D DAVIDSON, MG, PHOS, CMP, LIPID, URIC #### [facility] [address] [place] [address] Dr. Sarmad Patino BASOM # 0.00 103/ul Normal 0.00-0.10 [facility] Comment on above: Performed By: #### D DAVIDSON, MG, PHOS, CMP, LIPID, URIC #### [facility] [address] [place] [address] Dr. Sarmad Patino BASOM % 0.0 % Critically low 0.2-2.0 [facility] Comment on above: Performed By: #### D DAVIDSON, MG, PHOS, CMP, LIPID, URIC #### [facility] [address] [place] [address] Dr. Sarmad Patino BLAST # Normal [facility] Comment on above: Performed By: #### D DAVIDSON, MG, PHOS, CMP, LIPID, URIC #### [facility] [address] [place] [address] Dr. Sarmad Patino BLAST % Normal [facility] Comment on above: Performed By: #### D DAVIDSON, MG, PHOS, CMP, LIPID, URIC #### [facility] [address] [place] [address] Dr. Sarmad Patino CORRECTED WBC Normal 4.0-11.0 [facility] Comment on above: Performed By: #### D DAVIDSON, MG, PHOS, CMP, LIPID, URIC #### [facility] [address] [place] [address] Dr. Sarmad Patino EOS # 0.14 103/ul Normal 0.00-0.70 [facility] Comment on above: Performed By: #### D DAVIDSON, MG, PHOS, CMP, LIPID, URIC #### [facility] [address] [address] [address] Sarmad Patino EOS% 1.0 % Normal 0.9-7.0 [facility] Comment on above: Performed By: #### D DAVIDSON, MG, PHOS, CMP, LIPID, URIC #### [facility] [address] [place] [address] Dr. Sarmad Patino HCT 42.8 % Normal 36.0-48.0 [facility] Comment on above: Performed By: #### D DAVIDSON, MG, PHOS, CMP, LIPID, URIC #### [facility] [address] [place] [address] Dr. Sarmad Patino HGB 14.2 g/dl Normal 12.0-16.0 [facility] Comment on above: Performed By: #### D DAVIDSON, MG, PHOS, CMP, LIPID, URIC #### [facility] [address] [place] [address] Dr. Sarmad Patino LYMPHM # 0.00 103/ul Critically low 1.20-3.80 [facility] Comment on above: Performed By: #### D DAVIDSON, MG, PHOS, CMP, LIPID, URIC #### [facility] [address] [address] [address] Sarmad Patino LYMPHM% 0.0 % Critically low 20.5-60.0 [facility] Comment on above: Performed By: #### D DAVIDSON, MG, PHOS, CMP, LIPID, URIC #### [facility] [address] [address] [address] Sarmad Patino MCH 28.8 pg Normal 26.7-34.0 [facility] Comment on above: Performed By: #### D DAVIDSON, MG, PHOS, CMP, LIPID, URIC #### [facility] [address] [place] [address] Dr. Sarmad Patino MCHC 33.2 g/dl Normal 29.9-35.2 [facility] Comment on above: Performed By: #### D DAVIDSON, MG, PHOS, CMP, LIPID, URIC #### [facility] [address] [place] [address] Dr. Sarmad Patino MCV 86.8 fL Normal 81.0-99.0 [facility] Comment on above: Performed By: #### D DAVIDSON, MG, PHOS, CMP, LIPID, URIC #### [facility] [address] [address] [address] Sarmad Patino METAMYELOCYTE # Normal [facility] Comment on above: Performed By: #### D DAVIDSON, MG, PHOS, CMP, LIPID, URIC #### [facility] [address] [place] [address] Dr. Sarmad Patino METAMYELOCYTE % Normal [facility] Comment on above: Performed By: #### D DAVIDSON, MG, PHOS, CMP, LIPID, URIC #### [facility] [address] [place] [address] Dr. Sarmad Patino MONOM# 0.84 103/ul Critically high 0.30-0.80 [facility] Comment on above: Performed By: #### D DAVIDSON, MG, PHOS, CMP, LIPID, URIC #### [facility] [address] [place] [address] Dr. Sarmad Patino MONOM% 6.0 % Normal 1.7-12.0 [facility] Comment on above: Performed By: #### D DAVIDSON, MG, PHOS, CMP, LIPID, URIC #### [facility] [address] [place] [address] Dr. Sarmad Patino MPV 11.5 fL Normal 9.5-13.5 [facility] Comment on above: Performed By: #### D DAVIDSON, MG, PHOS, CMP, LIPID, URIC #### [facility] [address] [place] [address] Dr. Sarmad Patino MYELOCYTE # 0.3 103/ul Normal [facility] Comment on above: Performed By: #### D DAVIDSON, MG, PHOS, CMP, LIPID, URIC #### [facility] [address] [address] [address] Sarmad Patino MYELOCYTE % 2 % Normal [facility] Comment on above: Performed By: #### D DAVIDSON, MG, PHOS, CMP, LIPID, URIC #### [facility] [address] [address] [address] Sarmad Patino NRBC Normal [facility] Comment on above: Performed By: #### D DAVIDSON, MG, PHOS, CMP, LIPID, URIC #### [facility] [address] [address] [address] Sarmad Patino PLT 180 103/ul Normal 150-450 [facility] Comment on above: Performed By: #### D DAVIDSON, MG, PHOS, CMP, LIPID, URIC #### [facility] [address] [address] [address] Sarmad Patino RBC 4.93 106/ul Normal 4.20-5.40 [facility] Comment on above: Performed By: #### D DAVIDSON, MG, PHOS, CMP, LIPID, URIC #### [facility] [address] [address] [address] Sarmad Patino RDW 13.9 % Normal 11.0-15.0 [facility] Comment on above: Performed By: #### D DAVIDSON, MG, PHOS, CMP, LIPID, URIC #### [facility] [address] [address] [address] Sarmad Patino SEG # 10.78 103/ul Critically high 1.40-6.50 [facility] Comment on above: Performed By: #### D DAVIDSON, MG, PHOS, CMP, LIPID, URIC #### [facility] [address] [address] [address] Sarmad Patino SEG % 77.0 % Critically high 43.0-75.0 [facility] Comment on above: Performed By: #### D DAVIDSON, MG, PHOS, CMP, LIPID, URIC #### [facility] [address] [address] [address] Sarmad Patino WBC 14.0 103/ul Critically high 4.0-11.0 [facility] Comment on above: Performed By: #### D DAVIDSON, MG, PHOS, CMP, LIPID, URIC #### [facility] [address] NECK [address] W [...] middle ear cavities clear. Skull base intact. 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 Parotid glands normal. Submandibular glands [...] F HOPPER Date: 2022-01-03 10:40 Normal [facility]on SARS-CoV-2 (COVID-19) RNA MURALI+probe Ql (Unsp spec) Detected Critically abnormal NOT DETECTED [facility] Comment on above: Result Comment: This test is not yet approved or cleared by the [place] FDA. When there are no FDA-approved or cleared tests available, and other criteria are met, FDA can make tests available under an emergency access mechanism called an Emergency Use Authorization (EUA). The EUA for this test is supported by the [employer]'s declaration that [...] DAVIDSON, MG, PHOS, CMP, LIPID, URIC #### [facility] [address] [place] [address] Dr. Sarmad Patino GROUP A STREP CULTUREon S. pyogenes Ag Ql (Unsp spec) Culture Observations: Negative for Group A Streptococcus Normal [facility] Comment on above: Performed By: #### U MAXI, LIPID, MG, CMP, DBIL, PHOS #### [facility] [address] [address] [address] Sarmad Patino INFLUENZA A AND B AGon 01-03 INFLUENZA A AG Negative Normal NEGATIVE SEE COMMENT [facility] Comment on above: Performed By: #### D DAVIDSON, MG, PHOS, CMP, LIPID, URIC #### [facility] [address] [place] [address] Dr. Sarmad Patino INFLUENZA B AG Negative Normal NEGATIVE SEE COMMENT [facility] Comment on above: Performed By: #### D DAVIDSON, MG, PHOS, CMP, LIPID, URIC #### [facility] [address] [address] [address] Sarmad Patino INTERNAL CONTROLS Within Normal Limits Normal Wi thin Normal Limits [facility] Comment on above: Performed By: #### D DAVIDSON, MG, PHOS, CMP, LIPID, URIC #### [facility] [address] [place] [address] Dr. Sarmad Patino PROF 14(COMP METB)on 022 Albumin [Mass/Vol] 2.5 g/dL Critically low 3.4-5.0 [facility] Comment on above: Performed By: #### U MAXI, LIPID, MG, CMP, DBIL, PHOS #### [facility] [address] [place] [address] Dr. Sarmad Patino Albumin/Globulin [Mass ratio] 0.5 {ratio} Normal [facility] Comment on above: Performed By: #### U MAXI, LIPID, MG, CMP, DBIL, PHOS #### [facility] [address] [address] [address] Sarmad Patino ALP [Catalytic activity/Vol] 185 U/L Critically high 46-116 [facility] Comment on above: Performed By: #### U MAXI, LIPID, MG, CMP, DBIL, PHOS #### [facility] [address] [place] [address] Dr. Sarmad Patino ALT [Catalytic activity/Vol] 108 U/L Critically high 14-59 [facility] Comment on above: Performed By: #### U MAXI, LIPID, MG, CMP, DBIL, PHOS #### [facility] [address] [place] [address] Dr. Sarmad Patino Anion gap [Moles/Vol] 8.3 mmol/L Normal [facility] Comment on above: Performed By: #### U MAXI, LIPID, MG, CMP, DBIL, PHOS #### [facility] [address] [place] [address] Dr. Sarmad Patino AST [Catalytic activity/Vol] 59 U/L Critically high 15-37 [facility] Comment on above: Performed By: #### U MAXI, LIPID, MG, CMP, DBIL, PHOS #### [facility] [address] [place] [address] Dr. Sarmad Patino Bilirubin [Mass/Vol] 0.6 mg/dL Normal 0.2-1.0 [facility] Comment on above: Performed By: #### U MAXI, LIPID, MG, CMP, DBIL, PHOS #### [facility] [address] [place] [address] Dr. Sarmad Patino Calcium [Mass/Vol] 9.0 mg/dL Normal 8.5-10.1 [facility] Comment on above: Performed By: #### U MAXI, LIPID, MG, CMP, DBIL, PHOS #### [facility] [address] [address] [address] Sarmad Patino Chloride [Moles/Vol] 100 mmol/L Normal 98-107 [facility] Comment on above: Performed By: #### U MAXI, LIPID, MG, CMP, DBIL, PHOS #### [facility] [address] [address] [address] Sarmad Patino CO2 [Moles/Vol] 29.0 mmol/L Normal 21.0-32.0 [facility] Comment on above: Performed By: #### U MAXI, LIPID, MG, CMP, DBIL, PHOS #### [facility] [address] [address] [address] Sarmad Patino Creatinine [Mass/Vol] 1.05 mg/dL Critically high 0.55-1.02 [facility] Comment on above: Performed By: #### U MAXI, LIPID, MG, CMP, DBIL, PHOS #### [facility] [address] [address] [address] Sarmad Patino EGFR-AF BURUNDIAN >60 Normal >=60 [facility] Comment on above: Performed By: #### U MAXI, LIPID, MG, CMP, DBIL, PHOS #### [facility] [address] [address] [address] Sarmad Patino EGFR-NON AF BURUNDIAN 53 mL/min/1.73m2 Critically low >=60 [facility] Comment on above: Performed By: #### U MAIX, LIPID, MG, CMP, DBIL, PHOS #### [facility] [address] [address] [address] Sarmad Patino Globulin (S) [Mass/Vol] 4.6 g/dL Normal [facility] Comment on above: Performed By: #### U MAXI, LIPID, MG, CMP, DBIL, PHOS #### [facility] [address] [address] [address] Sarmad Patino Glucose [Mass/Vol] 154 mg/dL Critically high 74-106 [facility] Comment on above: Performed By: #### U MAXI, LIPID, MG, CMP, DBIL, PHOS #### [facility] [address] [address] [address] Sarmad Patino Potassium [Moles/Vol] 3.3 mmol/L Critically low 3.5-5.1 [facility] Comment on above: Performed By: #### U MAXI, LIPID, MG, CMP, DBIL, PHOS #### [facility] [address] [place] [address] Dr. Sarmad Patino Protein [Mass/Vol] 7.1 g/dL Normal 6.4-8.2 [facility] Comment on above: Performed By: #### U MAXI, LIPID, MG, CMP, DBIL, PHOS #### [facility] [address] [place] [address] Dr. Sarmad Patino Sodium [Moles/Vol] 134 mmol/L Critically low 136-145 [facility] Comment on above: Performed By: #### U MXAI, LIPID, MG, CMP, DBIL, PHOS #### [facility] [address] [address] [address] Sarmad Patino Urea nitrogen [Mass/Vol] 24.0 mg/dL Critically high 7.0-18.0 [facility] Comment on above: Performed By: #### U MAXI, LIPID, MG, CMP, DBIL, PHOS #### [facility] [address] [place] [address] Dr. Sarmad Patino Urea nitrogen/Creatinine [Mass ratio] 22.9 mg/mg Normal [facility] Comment on above: Performed By: #### U MAXI, LIPID, MG, CMP, DBIL, PHOS #### [facility] [address] [place] [address] Dr. Sarmad Patino STREPT SCREENon 01-03-2022 STREP SCREEN A Negative Normal NEGATIVE [facility] Comment on above: Performed By: #### U MAXI, LIPID, MG, CMP, DBIL, PHOS #### [facility] [address] [place] [address] Dr. Sarmad Patino XR CHEST 2 Von [...] MAYRA WHITESIDE Date: 2022-01-03 03:54 Normal [facility] Quick Strepon 12-28-2021 S. pyogenes Org specific cx Ql (Throat) Negative [facility] Other Quick Strep [facility] Other SARS-CoV-2 (COVID-19) RNA NA A+probe Ql (Resp)on 12-25-2021 SARS-CoV-2 (COVID-19) RNA MURALI+probe Ql (Unsp spec) Negative [facility] Other FK506 (TACROLIMUS) WHOLE BLO ODon 12-08-2021 Tacrolimus (FK506), Blood 6.6 ng/mL Normal 2.0-20.0 [facility] Comment on above: Result Comment: Trou gh (immediately following transplant) 15.0 . Trough (steady state, 2 weeks or more after transplant): 3.0 - 8.0 . Performed by LC-MS/MS technology. Performed By: #### D DAVIDSON, MG, PHOS, CMP, LIPID, URIC #### [facility] [address] [address] [address] Sarmad Patino RAPAMUNE(SIROLIMUS)on 2021 Rapamune(Sirolimus), whole blood 9.6 ng/mL Normal 3.0-20.0 [facility] Comment on above: Result Comment: Perf ormed by LC/MS-MS technology . This test was developed and its performance characteristics determined by [employer]. It has not been cleared or approved by the Food and Drug Administration. Performed By: #### D DAVIDSON, MG, PHOS, CMP, LIPID, URIC #### [facility] [address] [address] [address] Sarmad Patino BILIRUBIN CONJUGATED (DIRECT )on 12-05-2021 BILI, CONJUGATED 0.1 mg/dL Normal 0.0-0.2 [facility] Comment on above: Performed By: #### D DAVIDSON, MG, PHOS, CMP, LIPID, URIC #### [facility] [address] [address] [address] Sarmad Patino CBC W MANUAL DIFFon 12-06-19 22 ATYPICAL LYMPH # Normal [facility] Comment on above: Performed By: #### D DAVIDSON, MG, PHOS, CMP, LIPID, URIC #### [facility] [address] [place] [address] Dr. Sarmad Patino ATYPICAL LYMPH % Normal [facility] Comment on above: Performed By: #### D DAVIDSON, MG, PHOS, CMP, LIPID, URIC #### [facility] [address] [address] [address] Sarmad Patino BAND # Normal 0.0-0.3 [facility] Comment on above: Performed By: #### D DAVIDSON, MG, PHOS, CMP, LIPID, URIC #### [facility] [address] [place] [address] Dr. Sarmad Patino BAND % Normal 0-5 [facility] Comment on above: Performed By: #### D DAVIDSON, MG, PHOS, CMP, LIPID, URIC #### [facility] [address] [address] [address] Sarmad Patino BASOM # 0.00 103/ul Normal 0.00-0.10 [facility] Comment on above: Performed By: #### D DAVIDSON, MG, PHOS, CMP, LIPID, URIC #### [facility] [address] [place] [address] Dr. Sarmad Patino BASOM % 0.0 % Critically low 0.2-2.0 [facility] Comment on above: Performed By: #### D DAVIDSON, MG, PHOS, CMP, LIPID, URIC #### [facility] [address] [place] [address] Dr. Sarmad Patino BLAST # Normal [facility] Comment on above: Performed By: #### D DAVIDSON, MG, PHOS, CMP, LIPID, URIC #### [facility] [address] [address] [address] Sarmad Patino BLAST % Normal [facility] Comment on above: Performed By: #### D DAVIDSON, MG, PHOS, CMP, LIPID, URIC #### [facility] [address] [address] [address] Sarmad Patino CORRECTED WBC Normal 4.0-11.0 [facility] Comment on above: Performed By: #### D DAVIDSON, MG, PHOS, CMP, LIPID, URIC #### [facility] [address] [place] [address] Dr. Sarmad Patino EOS # 0.15 103/ul Normal 0.00-0.70 [facility] Comment on above: Performed By: #### D DAVIDSON, MG, PHOS, CMP, LIPID, URIC #### [facility] [address] [place] [address] Dr. Sarmad Patino EOS% 2.0 % Normal 0.9-7.0 [facility] Comment on above: Performed By: #### D DAVIDSON, MG, PHOS, CMP, LIPID, URIC #### [facility] [address] [place] [address] Dr. Sarmad Patino HCT 47.5 % Normal 36.0-48.0 [facility] Comment on above: Performed By: #### D DAVIDSON, MG, PHOS, CMP, LIPID, URIC #### [facility] [address] [place] [address] Dr. Sarmad Patino HGB 15.6 g/dl Normal 12.0-16.0 [facility] Comment on above: Performed By: #### D DAVIDSNO, MG, PHOS, CMP, LIPID, URIC #### [facility] [address] [place] [address] Dr. Sarmad Patino LYMPHM # 1.46 103/ul Normal 1.20-3.80 [facility] Comment on above: Performed By: #### D DAVIDSON, MG, PHOS, CMP, LIPID, URIC #### [facility] [address] [address] [address] Sarmad Patino LYMPHM% 19.0 % Critically low 20.5-60.0 [facility] Comment on above: Performed By: #### D DAVIDSON, MG, PHOS, CMP, LIPID, URIC #### [facility] [address] [address] [address] Sarmad Patino MCH 28.9 pg Normal 26.7-34.0 [facility] Comment on above: Performed By: #### D DAVIDSON, MG, PHOS, CMP, LIPID, URIC #### [facility] [address] [place] [address] Dr. Sarmad Patino MCHC 32.8 g/dl Normal 29.9-35.2 [facility] Comment on above: Performed By: #### D DAVIDSON, MG, PHOS, CMP, LIPID, URIC #### [facility] [address] [address] [address] Sarmad Patino MCV 88.1 fL Normal 81.0-99.0 [facility] Comment on above: Performed By: #### D DAVIDSON, MG, PHOS, CMP, LIPID, URIC #### [facility] [address] [address] [address] Sarmad Patino METAMYELOCYTE # Normal [facility] Comment on above: Performed By: #### D DAVIDSON, MG, PHOS, CMP, LIPID, URIC #### [facility] [address] [address] [address] Sarmad Patino METAMYELOCYTE % Normal [facility] Comment on above: Performed By: #### D DAVIDSON, MG, PHOS, CMP, LIPID, URIC #### [facility] [address] [address] [address] Sarmad Patino MONOM# 0.85 103/ul Critically high 0.30-0.80 [facility] Comment on above: Performed By: #### D DAVIDSON, MG, PHOS, CMP, LIPID, URIC #### [facility] [address] [address] [address] Sarmad Patino MONOM% 11.0 % Normal 1.7-12.0 [facility] Comment on above: Performed By: #### D DAVIDSON, MG, PHOS, CMP, LIPID, URIC #### [facility] [address] [address] [address] Sarmad Patino MPV 11.3 fL Normal 9.5-13.5 [facility] Comment on above: Performed By: #### D DAVIDSON, MG, PHOS, CMP, LIPID, URIC #### [facility] [address] [place] [address] Dr. Sarmad Patino MYELOCYTE # Normal [facility] Comment on above: Performed By: #### D DAVIDSON, MG, PHOS, CMP, LIPID, URIC #### [facility] [address] [place] [address] Dr. Sarmad Patino MYELOCYTE % Normal [facility] Comment on above: Performed By: #### D DAVIDSON, MG, PHOS, CMP, LIPID, URIC #### [facility] [address] [place] [address] Dr. Sarmad Patino NRBC Normal [facility] Comment on above: Performed By: #### D DAVIDSON, MG, PHOS, CMP, LIPID, URIC #### [facility] [address] [address] [address] Sarmad Patino PLT 214 103/ul Normal 150-450 [facility] Comment on above: Performed By: #### D DAVIDSON, MG, PHOS, CMP, LIPID, URIC #### [facility] [address] [address] [address] Sarmad Patino RBC 5.39 106/ul Normal 4.20-5.40 [facility] Comment on above: Performed By: #### D DAVIDSON, MG, PHOS, CMP, LIPID, URIC #### [facility] [address] [address] [address] Sarmad Patino RDW 13.8 % Normal 11.0-15.0 [facility] Comment on above: Performed By: #### D DAVIDSON, MG, PHOS, CMP, LIPID, URIC #### [facility] [address] [place] [address] Dr. Sarmad Patino SEG # 5.24 103/ul Normal 1.40-6.50 [facility] Comment on above: Performed By: #### D DAVIDSON, MG, PHOS, CMP, LIPID, URIC #### [facility] [address] [place] [address] Dr. Sarmad Patino SEG % 68.0 % Normal 43.0-75.0 [facility] Comment on above: Performed By: #### D DAVIDSON, MG, PHOS, CMP, LIPID, URIC #### [facility] [address] [place] [address] Dr. Sarmad Patino WBC 7.7 103/ul Normal 4.0-11.0 [facility] Comment on above: Performed By: #### D DAVIDSON, MG, PHOS, CMP, LIPID, URIC #### [facility] [address] [place] [address] Dr. Sarmad Patino LIPID PROFILEon 12-05-2021 CHOL-HDL RATIO NORM SEE BELOW Normal [facility] Comment on above: Result Comment: 3.3 - 4.4 LOW RISK 4.4 - 7.1 AVERAGE RISK 7.1 - 11.0 MODERATE RISK >11.0 HIGH RISK Performed By: #### D DAVIDSON, MG, PHOS, CMP, LIPID, URIC #### [facility] [address] [place] [address] Dr. Sarmad Patino Cholesterol [Mass/Vol] 170 mg/dL Normal <=200 [facility] Comment on above: Performed By: #### D DAVIDSON, MG, PHOS, CMP, LIPID, URIC #### [facility] [address] [place] [address] Dr. Sarmad Patino Cholesterol in HDL [Mass/Vol] 54 mg/dL Normal 40-60 [facility] Comment on above: Performed By: #### D DAVIDSON, MG, PHOS, CMP, LIPID, URIC #### [facility] [address] [place] [address] Dr. Sarmad Patino Cholesterol in LDL [Mass/Vol] 92.2 mg/dL Normal [facility] Comment on above: Performed By: #### D DAVIDSON, MG, PHOS, CMP, LIPID, URIC #### [facility] [address] [address] [address] Sarmad Patino Cholesterol.total/Cho lesterol in HDL [Mass ratio] 3.1 {ratio} Normal [facility] Comment on above: Performed By: #### D DAVIDSON, MG, PHOS, CMP, LIPID, URIC #### [facility] [address] [address] [address] Sarmad Patino HDL NORMAL > or = 60 mg/dl - LO W CARDIOVASCULAR RISK <40 mg/dl - HIGH CARDIOVASCULAR RISK Normal [facility] Comment on above: Performed By: #### D DAVIDSON, MG, PHOS, CMP, LIPID, URIC #### [facility] [address] [address] [address] Sarmad Patino LDL CALC NORMAL SEE BELOW Normal [facility] Comment on above: Result Comment: <100 mg/dl OPTIMAL 100 - 129 mg/dl NEAR OR ABOVE OPTIMAL 130 - 159 mg/dl BORDERLINE HIGH 160 - 189 mg/dl HIGH >190 mg/dl VERY HIGH Performed By: #### D DAVIDSON, MG, PHOS, CMP, LIPID, URIC #### [facility] [address] [address] [address] Sarmad Patino Triglyceride [Mass/Vol] 119 mg/dL Normal <=150 [facility] Comment on above: Performed By: #### D DAVIDSON, MG, PHOS, CMP, LIPID, URIC #### [facility] [address] [address] [address] Sarmad Patino VLDL CALC 23.8 mg/dL Normal [facility] Comment on above: Performed By: #### D DAVIDSON, MG, PHOS, CMP, LIPID, URIC #### [facility] [address] [address] [address] Sarmad Patino MAGNESIUMon 12-05-2021 Magnesium [Mass/Vol] 1.8 mg/dL Normal 1.8-2.4 [facility] Comment on above: Performed By: #### D DAVIDSON, MG, PHOS, CMP, LIPID, URIC #### [facility] [address] [address] [address] Sarmad Patino PHOSPHORUSon 12-05-2021 Phosphate [Mass/Vol] 3.8 mg/dL Normal 2.6-4.7 [facility] Comment on above: Performed By: #### D DAVIDSON, MG, PHOS, CMP, LIPID, URIC #### [facility] [address] [address] [address] Sarmad Patino PROF 14(COMP METB)on 022 Albumin [Mass/Vol] 3.7 g/dL Normal 3.4-5.0 [facility] Comment on above: Performed By: #### D DAVIDSON, MG, PHOS, CMP, LIPID, URIC #### [facility] [address] [place] [address] Dr. Sarmad Patino Albumin/Globulin [Mass ratio] 1.0 {ratio} Normal [facility] Comment on above: Performed By: #### D DAVIDSON, MG, PHOS, CMP, LIPID, URIC #### [facility] [address] [place] [address] Dr. Sarmad Patino ALP [Catalytic activity/Vol] 151 U/L Critically high 46-116 [facility] Comment on above: Performed By: #### D DAVIDSON, MG, PHOS, CMP, LIPID, URIC #### [facility] [address] [address] [address] Sarmad Patino ALT [Catalytic activity/Vol] 27 U/L Normal 14-59 [facility] Comment on above: Performed By: #### D DAVIDSON, MG, PHOS, CMP, LIPID, URIC #### [facility] [address] [address] [address] Sarmad Patino Anion gap [Moles/Vol] 14.5 mmol/L Normal [facility] Comment on above: Performed By: #### D DAVIDSON, MG, PHOS, CMP, LIPID, URIC #### [facility] [address] [place] [address] Dr. Sarmad Patino AST [Catalytic activity/Vol] 25 U/L Normal 15-37 [facility] Comment on above: Performed By: #### D DAVIDSON, MG, PHOS, CMP, LIPID, URIC #### [facility] [address] [address] [address] Sarmad Patino Bilirubin [Mass/Vol] 0.4 mg/dL Normal 0.2-1.0 [facility] Comment on above: Performed By: #### D DAVIDSON, MG, PHOS, CMP, LIPID, URIC #### [facility] [address] [address] [address] Sarmad Patino Calcium [Mass/Vol] 9.4 mg/dL Normal 8.5-10.1 [facility] Comment on above: Performed By: #### D DAVIDSON, MG, PHOS, CMP, LIPID, URIC #### [facility] [address] [place] [address] Dr. Sarmad Patino Chloride [Moles/Vol] 103 mmol/L Normal 98-107 [facility] Comment on above: Performed By: #### D DAVIDSON, MG, PHOS, CMP, LIPID, URIC #### [facility] [address] [place] [address] Dr. Sarmad Patino CO2 [Moles/Vol] 26.5 mmol/L Normal 21.0-32.0 [facility] Comment on above: Performed By: #### D DAVIDSON, MG, PHOS, CMP, LIPID, URIC #### [facility] [address] [place] [address] Dr. Sarmad Patino Creatinine [Mass/Vol] 0.87 mg/dL Normal 0.55-1.02 [facility] Comment on above: Performed By: #### D DAVIDSON, MG, PHOS, CMP, LIPID, URIC #### [facility] [address] [address] [address] Sarmad Patino EGFR-AF BURUNDIAN >60 Normal >=60 [facility] Comment on above: Performed By: #### D DAVIDSON, MG, PHOS, CMP, LIPID, URIC #### [facility] [address] [address] [address] Sarmad Patino EGFR-NON AF BURUNDIAN >60 Normal >=60 [facility] Comment on above: Performed By: #### D DAVIDSON, MG, PHOS, CMP, LIPID, URIC #### [facility] [address] [address] [address] Sarmad Patino Globulin (S) [Mass/Vol] 3.8 g/dL Normal [facility] Comment on above: Performed By: #### D DAVIDSON, MG, PHOS, CMP, LIPID, URIC #### [facility] [address] [address] [address] Sarmad Patino Glucose [Mass/Vol] 104 mg/dL Normal 74-106 [facility] Comment on above: Performed By: #### D DAVIDSON, MG, PHOS, CMP, LIPID, URIC #### [facility] [address] [place] [address] Dr. Sarmad Patino Potassium [Moles/Vol] 4.0 mmol/L Normal 3.5-5.1 [facility] Comment on above: Performed By: #### D DAVIDSON, MG, PHOS, CMP, LIPID, URIC #### [facility] [address] [place] [address] Dr. Sarmad Patino Protein [Mass/Vol] 7.5 g/dL Normal 6.4-8.2 [facility] Comment on above: Performed By: #### D DAVIDSON, MG, PHOS, CMP, LIPID, URIC #### [facility] [address] [place] [address] Dr. Sarmad Patino Sodium [Moles/Vol] 140 mmol/L Normal 136-145 [facility] Comment on above: Performed By: #### D DAVIDSON, MG, PHOS, CMP, LIPID, URIC #### [facility] [address] [place] [address] Dr. Sarmad Patino Urea nitrogen [Mass/Vol] 19.0 mg/dL Critically high 7.0-18.0 [facility] Comment on above: Performed By: #### D DAVIDSON, MG, PHOS, CMP, LIPID, URIC #### [facility] [address] [place] [address] Dr. Sarmad Patino Urea nitrogen/Creatinine [Mass ratio] 21.8 mg/mg Normal [facility] Comment on above: Performed By: #### D DAVIDSON, MG, PHOS, CMP, LIPID, URIC #### [facility] [address] [place] [address] Dr. Sarmad Patino URIC ACID SERUMon 12-05-2021 Urate [Mass/Vol] 5.2 mg/dL Normal 2.6-6.0 [facility] Comment on above: Performed By: #### D DAVIDSON, MG, PHOS, CMP, LIPID, URIC #### [facility] [address] [place] [address] Dr. Sarmad Patino EVEROLIMU, WHOLE BLOODon EVEROLIMUS 7.0 ng/mL Normal 3.0-8.0 [facility] Comment on above: Result Comment: Perf ormed by LC-MS/MS technology. Performed By: #### D DAVIDSON, MG, PHOS, CMP, LIPID, URIC #### [facility] [address] [place] [address] Dr. Sarmad Patino FK506 (TACROLIMUS) WHOLE BLO ODon 11-10-2021 Tacrolimus (FK506), Blood 6.4 ng/mL Normal 2.0-20.0 [facility] Comment on above: Result Comment: Trou gh (immediately following transplant) 15.0 . Trough (steady state, 2 weeks or more after transplant): 3.0 - 8.0 . Performed by LC-MS/MS technology. Performed By: #### D DAVIDSON, MG, PHOS, CMP, LIPID, URIC #### [facility] [address] [place] [address] Dr. Sarmad Patino BK VIRUS PCR QUANTon 022 BKV DNA QUANT PCR PLASMA Negative Normal Negative [facility] Comment on above: Result Comment: No B K DNA detected. . The linear range of the assay is 22 - 100,000,000 IU/mL. Performed By: #### U MAXI, LIPID, MG, CMP, DBIL, PHOS #### [facility] [address] [place] [address] Dr. Sarmad Patino Log10 BKV DNA Plasma Normal [facility] Comment on above: Performed By: #### U MAXI, LIPID, MG, CMP, DBIL, PHOS #### [facility] [address] [address] [address] Sarmad Patino BILIRUBIN CONJUGATED (DIRECT )on 11-07-2021 BILI, CONJUGATED 0.1 mg/dL Normal 0.0-0.2 [facility] Comment on above: Performed By: #### D DAVIDSON, MG, PHOS, CMP, LIPID, URIC #### [facility] [address] [place] [address] Dr. Sarmad Patino CBC AUTO DIFFon 11-07-2021 BASO # 0.0 103/ul Normal 0.0-0.1 [facility] Comment on above: Performed By: #### D DAVIDSON, MG, PHOS, CMP, LIPID, URIC #### [facility] [address] [place] [address] Dr. Sarmad Patino Basophils/100 WBC (Bld) 0.3 % Normal 0.2-2.0 [facility] Comment on above: Performed By: #### D DAVIDSON, MG, PHOS, CMP, LIPID, URIC #### [facility] [address] [place] [address] Dr. Sarmad Patino EO # 0.1 103/ul Normal 0.0-0.7 [facility] Comment on above: Performed By: #### D DAVIDSON, MG, PHOS, CMP, LIPID, URIC #### [facility] [address] [place] [address] Dr. Sarmad Patino Eosinophils/100 WBC (Bld) 2.1 % Normal 0.9-7.0 [facility] Comment on above: Performed By: #### D DAVIDSON, MG, PHOS, CMP, LIPID, URIC #### [facility] [address] [place] [address] Dr. Sarmda Patino Erythrocyte distribution width (RBC) [Ratio] 13.5 % Normal 11.0-15.0 [facility] Comment on above: Performed By: #### D DAVIDSON, MG, PHOS, CMP, LIPID, URIC #### [facility] [address] [place] [address] Dr. Sarmad Ptaino Hematocrit (Bld) [Volume fraction] 46.7 % Normal 36.0-48.0 [facility] Comment on above: Performed By: #### D DAVIDSON, MG, PHOS, CMP, LIPID, URIC #### [facility] [address] [place] [address] Dr. Sarmad Patino Hemoglobin (Bld) [Mass/Vol] 15.1 g/dL Normal 12.0-16.0 [facility] Comment on above: Performed By: #### D DAVIDSON, MG, PHOS, CMP, LIPID, URIC #### [facility] [address] [place] [address] Dr. Sarmad Patino IG # 0.03 10e3/ul Normal 0.00-0.03 [facility] Comment on above: Performed By: #### D DAVIDSON, MG, PHOS, CMP, LIPID, URIC #### [facility] [address] [place] [address] Dr. Sarmad Patino IG % 0.5 % Normal 0.0-0.5 [facility] Comment on above: Performed By: #### D DAVIDSON, MG, PHOS, CMP, LIPID, URIC #### [facility] [address] [place] [address] Dr. Sarmad Patino LYMPH # 1.3 103/ul Normal 1.2-3.8 [facility] Comment on above: Performed By: #### D DAVIDSON, MG, PHOS, CMP, LIPID, URIC #### [facility] [address] [place] [address] Dr. Sarmad Patino Lymphocytes/100 WBC (Bld) 19.9 % Critically low 20.5-60.0 [facility] Comment on above: Performed By: #### D DAVIDSON, MG, PHOS, CMP, LIPID, URIC #### [facility] [address] [place] [address] Dr. Sarmad Patino MANUAL DIFF REQ NO Normal [facility] Comment on above: Performed By: #### D DAVIDSON, MG, PHOS, CMP, LIPID, URIC #### [facility] [address] [place] [address] Dr. Sarmad Patino MCH (RBC) [Entitic mass] 28.6 pg Normal 26.7-34.0 [facility] Comment on above: Performed By: #### D DAVIDSON, MG, PHOS, CMP, LIPID, URIC #### [facility] [address] [place] [address] Dr. Sarmad Patino MCHC (RBC) [Mass/Vol] 32.3 g/dL Normal 29.9-35.2 [facility] Comment on above: Performed By: #### D DAVIDSON, MG, PHOS, CMP, LIPID, URIC #### [facility] [address] [place] [address] Dr. Sarmad Patino MCV (RBC) [Entitic vol] 88.4 fL Normal 81.0-99.0 [facility] Comment on above: Performed By: #### D DAVIDSON, MG, PHOS, CMP, LIPID, URIC #### [facility] [address] [place] [address] Dr. Sarmad Patino MONO # 0.8 103/ul Normal 0.3-0.8 [facility] Comment on above: Performed By: #### D DAVIDSON, MG, PHOS, CMP, LIPID, URIC #### [facility] [address] [place] [address] Dr. Sarmad Patino Monocytes/100 WBC (Bld) 12.9 % Critically high 1.7-12.0 [facility] Comment on above: Performed By: #### D DAVIDSON, MG, PHOS, CMP, LIPID, URIC #### [facility] [address] [place] [address] Dr. Sarmad Patino NEUT # 4.0 103/ul Normal 1.4-6.5 [facility] Comment on above: Performed By: #### D DAVIDSON, MG, PHOS, CMP, LIPID, URIC #### [facility] [address] [place] [address] Dr. Sarmad Patino Neutrophils/100 WBC (Bld) 64.3 % Normal 43.0-75.0 [facility] Comment on above: Performed By: #### D DAVIDSON, MG, PHOS, CMP, LIPID, URIC #### [facility] [address] [address] [address] Sarmad Patino Platelet mean volume (Bld) [Entitic vol] 11.3 fL Normal 9.5-13.5 [facility] Comment on above: Performed By: #### D DAVIDSON, MG, PHOS, CMP, LIPID, URIC #### [facility] [address] [address] [address] Sarmad Patino PLT 241 103/ul Normal 150-450 [facility] Comment on above: Performed By: #### D DAVIDSON, MG, PHOS, CMP, LIPID, URIC #### [facility] [address] [address] [address] Sarmad Patino RBC 5.28 106/ul Normal 4.20-5.40 [facility] Comment on above: Performed By: #### D DAVIDSON, MG, PHOS, CMP, LIPID, URIC #### [facility] [address] [place] [address] Dr. Sarmad Patino WBC 6.3 103/ul Normal 4.0-11.0 [facility] Comment on above: Performed By: #### D DAVIDSON, MG, PHOS, CMP, LIPID, URIC #### [facility] [address] [place] [address] Dr. Sarmad Patino GLYCOHEMOGLOBIN A1Con 2021 ADA RECOMMENDATION SEE BELOW Normal [facility] Comment on above: Result Comment: ADA RECOMMENDED LIMIT 4.0 - 6.0 ADA THERAPEUTIC TARGET < 7.0 ACTION SUGGESTED > 7.0 Performed By: #### D DAVIDSON, MG, PHOS, CMP, LIPID, URIC #### [facility] [address] [place] [address] Dr. Sarmad Patino Glucose [Mass/Vol] 120 mg/dL Normal [facility] Comment on above: Performed By: #### D DAVIDSON, MG, PHOS, CMP, LIPID, URIC #### [facility] [address] [place] [address] Dr. Sarmad Patino HbA1c (Bld) [Mass fraction] 5.8 % Normal 4.5-6.2 [facility] Comment on above: Performed By: #### D DAVIDSON, MG, PHOS, CMP, LIPID, URIC #### [facility] [address] [address] [address] Sarmad Patino LIPID PROFILEon 11-07-2021 CHOL-HDL RATIO NORM SEE BELOW Normal [facility] Comment on above: Result Comment: 3.3 - 4.4 LOW RISK 4.4 - 7.1 AVERAGE RISK 7.1 - 11.0 MODERATE RISK >11.0 HIGH RISK Performed By: #### D DAVIDSON, MG, PHOS, CMP, LIPID, URIC #### [facility] [address] [address] [address] Sarmad Patino Cholesterol [Mass/Vol] 157 mg/dL Normal <=200 [facility] Comment on above: Performed By: #### D DAVIDSON, MG, PHOS, CMP, LIPID, URIC #### [facility] [address] [address] [address] Sarmad Patino Cholesterol in HDL [Mass/Vol] 48 mg/dL Normal 40-60 [facility] Comment on above: Performed By: #### D DAVIDSON, MG, PHOS, CMP, LIPID, URIC #### [facility] [address] [address] [address] Sarmad Patino Cholesterol in LDL [Mass/Vol] 89.6 mg/dL Normal [facility] Comment on above: Performed By: #### D DAVIDSON, MG, PHOS, CMP, LIPID, URIC #### [facility] [address] [address] [address] Sarmad Patino Cholesterol.total/Cho lesterol in HDL [Mass ratio] 3.3 {ratio} Normal [facility] Comment on above: Performed By: #### D DAVIDSON, MG, PHOS, CMP, LIPID, URIC #### [facility] [address] [address] [address] Sarmad Patino HDL NORMAL > or = 60 mg/dl - LO W CARDIOVASCULAR RISK <40 mg/dl - HIGH CARDIOVASCULAR RISK Normal [facility] Comment on above: Performed By: #### D DAVIDSON, MG, PHOS, CMP, LIPID, URIC #### [facility] [address] [address] [address] Sarmad Patino LDL CALC NORMAL SEE BELOW Normal [facility] Comment on above: Result Comment: <100 mg/dl OPTIMAL 100 - 129 mg/dl NEAR OR ABOVE OPTIMAL 130 - 159 mg/dl BORDERLINE HIGH 160 - 189 mg/dl HIGH >190 mg/dl VERY HIGH Performed By: #### D DAVIDSON, MG, PHOS, CMP, LIPID, URIC #### [facility] [address] [address] [address] Sarmad Patino Triglyceride [Mass/Vol] 97 mg/dL Normal <=150 [facility] Comment on above: Performed By: #### D DAVIDSON, MG, PHOS, CMP, LIPID, URIC #### [facility] [address] [address] [address] Sarmad Patino VLDL CALC 19.4 mg/dL Normal [facility] Comment on above: Performed By: #### D DAVIDSON, MG, PHOS, CMP, LIPID, URIC #### [facility] [address] [address] [address] Sarmad Patino MAGNESIUMon 11-07-2021 Magnesium [Mass/Vol] 1.9 mg/dL Normal 1.8-2.4 [facility] Comment on above: Performed By: #### D DAVIDSON, MG, PHOS, CMP, LIPID, URIC #### [facility] [address] [address] [address] Sarmad Patino PHOSPHORUSon 11-07-2021 Phosphate [Mass/Vol] 3.4 mg/dL Normal 2.6-4.7 [facility] Comment on above: Performed By: #### D DAVIDSON, MG, PHOS, CMP, LIPID, URIC #### [facility] [address] [address] [address] Sarmad Patino PROF 14(COMP METB)on 022 Albumin [Mass/Vol] 3.6 g/dL Normal 3.4-5.0 [facility] Comment on above: Performed By: #### D DAVIDSON, MG, PHOS, CMP, LIPID, URIC #### [facility] [address] [address] [address] Sarmad Patino Albumin/Globulin [Mass ratio] 0.9 {ratio} Normal [facility] Comment on above: Performed By: #### D DAVIDSON, MG, PHOS, CMP, LIPID, URIC #### [facility] [address] [address] [address] Sarmad Patino ALP [Catalytic activity/Vol] 158 U/L Critically high 46-116 [facility] Comment on above: Performed By: #### D DAVIDSON, MG, PHOS, CMP, LIPID, URIC #### [facility] [address] [address] [address] Sarmad Patino ALT [Catalytic activity/Vol] 23 U/L Normal 14-59 [facility] Comment on above: Performed By: #### D DAVIDSON, MG, PHOS, CMP, LIPID, URIC #### [facility] [address] [place] [address] Dr. Sarmad Patino Anion gap [Moles/Vol] 14.8 mmol/L Normal Th [facility] Comment on above: Performed By: #### D DAVIDSON, MG, PHOS, CMP, LIPID, URIC #### [facility] [address] [place] [address] Dr. Sarmad Patino AST [Catalytic activity/Vol] 18 U/L Normal 15-37 [facility] Comment on above: Performed By: #### D DAVIDSON, MG, PHOS, CMP, LIPID, URIC #### [facility] [address] [place] [address] Dr. Sarmad Patino Bilirubin [Mass/Vol] 0.4 mg/dL Normal 0.2-1.0 [facility] Comment on above: Performed By: #### D DAVIDSON, MG, PHOS, CMP, LIPID, URIC #### [facility] [address] [address] [address] Sarmad Patino Calcium [Mass/Vol] 9.3 mg/dL Normal 8.5-10.1 [facility] Comment on above: Performed By: #### D DAVIDSON, MG, PHOS, CMP, LIPID, URIC #### [facility] [address] [place] [address] Dr. Sarmad Patino Chloride [Moles/Vol] 105 mmol/L Normal 98-107 [facility] Comment on above: Performed By: #### D DAVIDSON, MG, PHOS, CMP, LIPID, URIC #### [facility] [address] [address] [address] Sarmad Patino CO2 [Moles/Vol] 26.1 mmol/L Normal 21.0-32.0 [facility] Comment on above: Performed By: #### D DAVIDSON, MG, PHOS, CMP, LIPID, URIC #### [facility] [address] [address] [address] Sarmad Patino Creatinine [Mass/Vol] 0.84 mg/dL Normal 0.55-1.02 [facility] Comment on above: Performed By: #### D DAVIDSON, MG, PHOS, CMP, LIPID, URIC #### [facility] [address] [place] [address] Dr. Sarmad Patino EGFR-AF BURUNDIAN >60 Normal >=60 [facility] Comment on above: Performed By: #### D DAVIDSON, MG, PHOS, CMP, LIPID, URIC #### [facility] [address] [place] [address] Dr. Sarmad Patino EGFR-NON AF B[place]UNDIAN >60 Normal >=60 [facility] Comment on above: Performed By: #### D DAVIDSON, MG, PHOS, CMP, LIPID, URIC #### [facility] [address] [place] [address] Dr. Sarmad Patino Globulin (S) [Mass/Vol] 3.8 g/dL Normal [facility] Comment on above: Performed By: #### D DAVIDSON, MG, PHOS, CMP, LIPID, URIC #### [facility] [address] [address] [address] Sarmad Patino Glucose [Mass/Vol] 97 mg/dL Normal 74-106 [facility] Comment on above: Performed By: #### D DAVIDSON, MG, PHOS, CMP, LIPID, URIC #### [facility] [address] [place] [address] Dr. Sarmad Patino Potassium [Moles/Vol] 3.9 mmol/L Normal 3.5-5.1 [facility] Comment on above: Performed By: #### D DAVIDSON, MG, PHOS, CMP, LIPID, URIC #### [facility] [address] [address] [address] Sarmad Patino Protein [Mass/Vol] 7.4 g/dL Normal 6.4-8.2 [facility] Comment on above: Performed By: #### D DAVIDSON, MG, PHOS, CMP, LIPID, URIC #### [facility] [address] [address] [address] Sarmad Patino Sodium [Moles/Vol] 142 mmol/L Normal 136-145 [facility] Comment on above: Performed By: #### D DAVIDSON, MG, PHOS, CMP, LIPID, URIC #### [facility] [address] [place] [address] Dr. Sarmad Patino Urea nitrogen [Mass/Vol] 21.0 mg/dL Critically high 7.0-18.0 [facility] Comment on above: Performed By: #### D DAVIDSON, MG, PHOS, CMP, LIPID, URIC #### [facility] [address] [place] [address] Dr. Sarmad Patino Urea nitrogen/Creatinine [Mass ratio] 25.0 mg/mg Normal [facility] Comment on above: Performed By: #### D DAVIDSON, MG, PHOS, CMP, LIPID, URIC #### [facility] [address] [place] [address] Dr. Sarmad Patino URIC ACID SERUMon 11-07-2021 Urate [Mass/Vol] 5.1 mg/dL Normal 2.6-6.0 [facility] Comment on above: Performed By: #### D DAVIDSON, MG, PHOS, CMP, LIPID, URIC #### [facility] [address] [place] [address] Dr. Sarmad Patino BOX TEST SENT OUTon 10-16-19 22 SENT TO REF LAB 10/15/2021 Normal [facility] Comment on above: Performed By: #### D DAVIDSON, MG, PHOS, CMP, LIPID, URIC #### [facility] [address] [place] [address] Dr. Sarmad CHRISTIEMU, WHOLE BLOODon EVEROLIMUS 6.7 ng/mL Normal 3.0-8.0 [facility] Comment on above: Result Comment: Perf ormed by LC-MS/MS technology. Performed By: #### D DAVIDSON, MG, PHOS, CMP, LIPID, URIC #### [facility] [address] [place] [address] Dr. Sarmad Patino FK506 (TACROLIMUS) WHOLE BLO ODon 10-10-2021 Tacrolimus (FK506), Blood 5.9 ng/mL Normal 2.0-20.0 [facility] Comment on above: Result Comment: Trou gh (immediately following transplant) 15.0 . Trough (steady state, 2 weeks or more after transplant): 3.0 - 8.0 . Performed by LC-MS/MS technology. Performed By: #### D DAVIDSON, MG, PHOS, CMP, LIPID, URIC #### [facility] [address] [place] [address] Dr. Sarmad Patino BILIRUBIN CONJUGATED (DIRECT )on 10-08-2021 BILI, CONJUGATED 0.1 mg/dL Normal 0.0-0.2 [facility] Comment on above: Performed By: #### U MAXI, LIPID, MG, CMP, DBIL, PHOS #### [facility] [address] [place] [address] Dr. Sarmad Patino CBC AUTO DIFFon 10-08-2021 BASO # 0.0 103/ul Normal 0.0-0.1 [facility] Comment on above: Performed By: #### D DAVIDSON, MG, PHOS, CMP, LIPID, URIC #### [facility] [address] [place] [address] Dr. Sarmad Patino Basophils/100 WBC (Bld) 0.1 % Critically low 0.2-2.0 [facility] Comment on above: Performed By: #### D DAVIDSON, MG, PHOS, CMP, LIPID, URIC #### [facility] [address] [place] [address] Dr. Sarmad Patino EO # 0.1 103/ul Normal 0.0-0.7 [facility] Comment on above: Performed By: #### D DAVIDSON, MG, PHOS, CMP, LIPID, URIC #### [facility] [address] [place] [address] Dr. Sarmad Patino Eosinophils/100 WBC (Bld) 1.4 % Normal 0.9-7.0 [facility] Comment on above: Performed By: #### D DAVIDSON, MG, PHOS, CMP, LIPID, URIC #### [facility] [address] [place] [address] Dr. Sarmad Patino Erythrocyte distribution width (RBC) [Ratio] 13.6 % Normal 11.0-15.0 [facility] Comment on above: Performed By: #### D DAVIDSON, MG, PHOS, CMP, LIPID, URIC #### [facility] [address] [place] [address] Dr. Sarmad Patino Hematocrit (Bld) [Volume fraction] 47.5 % Normal 36.0-48.0 [facility] Comment on above: Performed By: #### D DAVIDSON, MG, PHOS, CMP, LIPID, URIC #### [facility] [address] [place] [address] Dr. Sarmad Patino Hemoglobin (Bld) [Mass/Vol] 15.7 g/dL Normal 12.0-16.0 [facility] Comment on above: Performed By: #### D DAVIDSON, MG, PHOS, CMP, LIPID, URIC #### [facility] [address] [place] [address] Dr. Sarmad Patino IG # 0.04 10e3/ul Critically high 0.00-0.03 [facility] Comment on above: Performed By: #### D DAVIDSON, MG, PHOS, CMP, LIPID, URIC #### [facility] [address] [place] [address] Dr. Sarmad Patino IG % 0.5 % Normal 0.0-0.5 [facility] Comment on above: Performed By: #### D DAVIDSON, MG, PHOS, CMP, LIPID, URIC #### [facility] [address] [place] [address] Dr. Sarmad Patino LYMPH # 1.3 103/ul Normal 1.2-3.8 [facility] Comment on above: Performed By: #### D DAVIDSON, MG, PHOS, CMP, LIPID, URIC #### [facility] [address] [place] [address] Dr. Sarmad Patino Lymphocytes/100 WBC (Bld) 15.4 % Critically low 20.5-60.0 [facility] Comment on above: Performed By: #### D DAVIDSON, MG, PHOS, CMP, LIPID, URIC #### [facility] [address] [place] [address] Dr. Sarmad Patino MANUAL DIFF REQ NO Normal [facility] Comment on above: Performed By: #### D DAVIDSON, MG, PHOS, CMP, LIPID, URIC #### [facility] [address] [place] [address] Dr. Sarmad Patino MCH (RBC) [Entitic mass] 29.1 pg Normal 26.7-34.0 [facility] Comment on above: Performed By: #### D DAVIDSON, MG, PHOS, CMP, LIPID, URIC #### [facility] [address] [place] [address] Dr. Sarmad Patino MCHC (RBC) [Mass/Vol] 33.1 g/dL Normal 29.9-35.2 [facility] Comment on above: Performed By: #### D DAVIDSON, MG, PHOS, CMP, LIPID, URIC #### [facility] [address] [place] [address] Dr. Sarmad Patino MCV (RBC) [Entitic vol] 88.0 fL Normal 81.0-99.0 [facility] Comment on above: Performed By: #### D DAVIDSON, MG, PHOS, CMP, LIPID, URIC #### [facility] [address] [place] [address] Dr. Sarmad Patino MONO # 0.9 103/ul Critically high 0.3-0.8 [facility] Comment on above: Performed By: #### D DAVIDSON, MG, PHOS, CMP, LIPID, URIC #### [facility] [address] [place] [address] Dr. Sarmad Patino Monocytes/100 WBC (Bld) 10.2 % Normal 1.7-12.0 [facility] Comment on above: Performed By: #### D DAVIDSON, MG, PHOS, CMP, LIPID, URIC #### [facility] [address] [address] [address] Sarmad Patino NEUT # 6.1 103/ul Normal 1.4-6.5 [facility] Comment on above: Performed By: #### D DAVIDSON, MG, PHOS, CMP, LIPID, URIC #### [facility] [address] [address] [address] Sarmad Patino Neutrophils/100 WBC (Bld) 72.4 % Normal 43.0-75.0 [facility] Comment on above: Performed By: #### D DAVIDSON, MG, PHOS, CMP, LIPID, URIC #### [facility] [address] [place] [address] Dr. Sarmad Patino Platelet mean volume (Bld) [Entitic vol] 11.1 fL Normal 9.5-13.5 [facility] Comment on above: Performed By: #### D DAVIDSON, MG, PHOS, CMP, LIPID, URIC #### [facility] [address] [place] [address] Dr. Sarmad Patino PLT 213 103/ul Normal 150-450 [facility] Comment on above: Performed By: #### D DAVIDSON, MG, PHOS, CMP, LIPID, URIC #### [facility] [address] [place] [address] Dr. Sarmad Patino RBC 5.40 106/ul Normal 4.20-5.40 [facility] Comment on above: Performed By: #### D DAVIDSON, MG, PHOS, CMP, LIPID, URIC #### [facility] [address] [place] [address] Dr. Sarmad Patino WBC 8.4 103/ul Normal 4.0-11.0 [facility] Comment on above: Performed By: #### D DAVIDSON, MG, PHOS, CMP, LIPID, URIC #### [facility] [address] [place] [address] Dr. Sarmad Patino LIPID PROFILEon 10-08-2021 CHOL-HDL RATIO NORM SEE BELOW Normal [facility] Comment on above: Result Comment: 3.3 - 4.4 LOW RISK 4.4 - 7.1 AVERAGE RISK 7.1 - 11.0 MODERATE RISK >11.0 HIGH RISK Performed By: #### D DAVIDSON, MG, PHOS, CMP, LIPID, URIC #### [facility] [address] [address] [address] Sarmad Patino Cholesterol [Mass/Vol] 155 mg/dL Normal <=200 [facility] Comment on above: Performed By: #### D DAVIDSON, MG, PHOS, CMP, LIPID, URIC #### [facility] [address] [address] [address] Sarmad Patino Cholesterol in HDL [Mass/Vol] 49 mg/dL Normal 40-60 [facility] Comment on above: Performed By: #### D DAVIDSON, MG, PHOS, CMP, LIPID, URIC #### [facility] [address] [place] [address] Dr. Sarmad Patino Cholesterol in LDL [Mass/Vol] 73.8 mg/dL Normal [facility] Comment on above: Performed By: #### D DAVIDSON, MG, PHOS, CMP, LIPID, URIC #### [facility] [address] [address] [address] Sarmad Patino Cholesterol.total/Cho lesterol in HDL [Mass ratio] 3.2 {ratio} Normal [facility] Comment on above: Performed By: #### D DAVIDSON, MG, PHOS, CMP, LIPID, URIC #### [facility] [address] [address] [address] Sarmad Patino HDL NORMAL > or = 60 mg/dl - LO W CARDIOVASCULAR RISK <40 mg/dl - HIGH CARDIOVASCULAR RISK Normal [facility] Comment on above: Performed By: #### D DAVIDSON, MG, PHOS, CMP, LIPID, URIC #### [facility] [address] [address] [address] Sarmad Patino LDL CALC NORMAL SEE BELOW Normal [facility] Comment on above: Result Comment: <100 mg/dl OPTIMAL 100 - 129 mg/dl NEAR OR ABOVE OPTIMAL 130 - 159 mg/dl BORDERLINE HIGH 160 - 189 mg/dl HIGH >190 mg/dl VERY HIGH Performed By: #### D DAVIDSON, MG, PHOS, CMP, LIPID, URIC #### [facility] [address] [address] [address] Sarmad Patino Triglyceride [Mass/Vol] 161 mg/dL Critically high <=150 [facility] Comment on above: Performed By: #### D DAVIDSON, MG, PHOS, CMP, LIPID, URIC #### [facility] [address] [place] [address] Dr. Sarmad Patino VLDL CALC 32.2 mg/dL Normal [facility] Comment on above: Performed By: #### D DAVIDSON, MG, PHOS, CMP, LIPID, URIC #### [facility] [address] [place] [address] Dr. Sarmad Patino MAGNESIUMon 10-08-2021 Magnesium [Mass/Vol] 1.6 mg/dL Critically low 1.8-2.4 [facility] Comment on above: Performed By: #### U MAXI, LIPID, MG, CMP, DBIL, PHOS #### [facility] [address] [place] [address] Dr. Sarmad Patino PHOSPHORUSon 10-08-2021 Phosphate [Mass/Vol] 3.5 mg/dL Normal 2.6-4.7 [facility] Comment on above: Performed By: #### U MAXI, LIPID, MG, CMP, DBIL, PHOS #### [facility] [address] [place] [address] Dr. Sarmad Patino PROF 14(COMP METB)on 022 Albumin [Mass/Vol] 3.6 g/dL Normal 3.4-5.0 [facility] Comment on above: Performed By: #### D DAVIDSON, MG, PHOS, CMP, LIPID, URIC #### [facility] [address] [place] [address] Dr. Sarmad Patino Albumin/Globulin [Mass ratio] 0.9 {ratio} Normal [facility] Comment on above: Performed By: #### D DAVIDSON, MG, PHOS, CMP, LIPID, URIC #### [facility] [address] [place] [address] Dr. Sarmad Patino ALP [Catalytic activity/Vol] 150 U/L Critically high 46-116 [facility] Comment on above: Performed By: #### D DAVIDSON, MG, PHOS, CMP, LIPID, URIC #### [facility] [address] [address] [address] Sarmad Patino ALT [Catalytic activity/Vol] 21 U/L Normal 14-59 [facility] Comment on above: Performed By: #### D DAVIDSON, MG, PHOS, CMP, LIPID, URIC #### [facility] [address] [place] [address] Dr. Sarmad Patino Anion gap [Moles/Vol] 14.0 mmol/L Normal [facility] Comment on above: Performed By: #### D DAVIDSON, MG, PHOS, CMP, LIPID, URIC #### [facility] [address] [place] [address] Dr. Sarmad Patino AST [Catalytic activity/Vol] 13 U/L Critically low 15-37 [facility] Comment on above: Performed By: #### D DAVIDSON, MG, PHOS, CMP, LIPID, URIC #### [facility] [address] [place] [address] Dr. Sarmad Patino Bilirubin [Mass/Vol] 0.5 mg/dL Normal 0.2-1.0 [facility] Comment on above: Performed By: #### D DAVIDSON, MG, PHOS, CMP, LIPID, URIC #### [facility] [address] [address] [address] Sarmad Patino Calcium [Mass/Vol] 9.8 mg/dL Normal 8.5-10.1 [facility] Comment on above: Performed By: #### D DAVIDSON, MG, PHOS, CMP, LIPID, URIC #### [facility] [address] [address] [address] Sarmad Patino Chloride [Moles/Vol] 105 mmol/L Normal 98-107 [facility] Comment on above: Performed By: #### D DAVIDSON, MG, PHOS, CMP, LIPID, URIC #### [facility] [address] [address] [address] Sarmad Patino CO2 [Moles/Vol] 25.9 mmol/L Normal 21.0-32.0 [facility] Comment on above: Performed By: #### D DAVIDSON, MG, PHOS, CMP, LIPID, URIC #### [facility] [address] [address] [address] Sarmad Patino Creatinine [Mass/Vol] 0.81 mg/dL Normal 0.55-1.02 [facility] Comment on above: Performed By: #### D DAVIDSON, MG, PHOS, CMP, LIPID, URIC #### [facility] [address] [address] [address] Sarmad Patino EGFR-AF BURUNDIAN >60 Normal >=60 [facility] Comment on above: Performed By: #### D DAVIDSON, MG, PHOS, CMP, LIPID, URIC #### [facility] [address] [address] [address] Sarmad Patino EGFR-NON AF BURUNDIAN >60 Normal >=60 [facility] Comment on above: Performed By: #### D DAVIDSON, MG, PHOS, CMP, LIPID, URIC #### [facility] [address] [address] [address] Sarmad Patino Globulin (S) [Mass/Vol] 3.8 g/dL Normal [facility] Comment on above: Performed By: #### D DAVIDSON, MG, PHOS, CMP, LIPID, URIC #### [facility] [address] [address] [address] Sarmad Patino Glucose [Mass/Vol] 101 mg/dL Normal 74-106 [facility] Comment on above: Performed By: #### D DAVIDSON, MG, PHOS, CMP, LIPID, URIC #### [facility] [address] [address] [address] Sarmad Patino Potassium [Moles/Vol] 3.9 mmol/L Normal 3.5-5.1 [facility] Comment on above: Performed By: #### D DAVIDSON, MG, PHOS, CMP, LIPID, URIC #### [facility] [address] [address] [address] Sarmad Patino Protein [Mass/Vol] 7.4 g/dL Normal 6.4-8.2 [facility] Comment on above: Performed By: #### D DAVIDSON, MG, PHOS, CMP, LIPID, URIC #### [facility] [address] [place] [address] Dr. Sarmad Patino Sodium [Moles/Vol] 141 mmol/L Normal 136-145 [facility] Comment on above: Performed By: #### D DAVIDSON, MG, PHOS, CMP, LIPID, URIC #### [facility] [address] [place] [address] Dr. Sarmad Patino Urea nitrogen [Mass/Vol] 18.0 mg/dL Normal 7.0-18.0 [facility] Comment on above: Performed By: #### D DAVIDSON, MG, PHOS, CMP, LIPID, URIC #### [facility] [address] [place] [address] Dr. Sarmad Patino Urea nitrogen/Creatinine [Mass ratio] 22.2 mg/mg Normal [facility] Comment on above: Performed By: #### D DAVIDSON, MG, PHOS, CMP, LIPID, URIC #### [facility] [address] [place] [address] Dr. Sarmad Patino URIC ACID SERUMon 10-08-2021 Urate [Mass/Vol] 4.7 mg/dL Normal 2.6-6.0 [facility] Comment on above: Performed By: #### D DAVIDSON, MG, PHOS, CMP, LIPID, URIC #### [facility] [address] [place] [address] Dr. Sarmad SALAZAROLIMU, WHOLE BLOODon EVEROLIMUS 8.0 ng/mL Normal 3.0-8.0 [facility] Comment on above: Result Comment: Perf ormed by LC-MS/MS technology. Performed By: #### U MAXI, LIPID, MG, CMP, DBIL, PHOS #### [facility] [address] [place] [address] Dr. Sarmad Patino FK506 (TACROLIMUS) WHOLE BLO ODon 09-14-2021 Tacrolimus (FK506), Blood 9.3 ng/mL Normal 2.0-20.0 [facility] Comment on above: Result Comment: Trou gh (immediately following transplant) 15.0 . Trough (steady state, 2 weeks or more after transplant): 3.0 - 8.0 . Performed by LC-MS/MS technology. Performed By: #### U MAXI, LIPID, MG, CMP, DBIL, PHOS #### [facility] [address] [place] [address] Dr. Sarmad Patino BK VIRUS PCR QUANTon 022 BKV DNA QUANT PCR PLASMA Negative Normal Negative [facility] Comment on above: Result Comment: No B K DNA detected. . The linear range of the assay is 22 - 100,000,000 IU/mL. Performed By: #### D DAVIDSON, MG, PHOS, CMP, LIPID, URIC #### [facility] [address] [place] [address] Dr. Sarmad Patino Log10 BKV DNA Plasma Normal [facility] Comment on above: Performed By: #### D DAVIDSON, MG, PHOS, CMP, LIPID, URIC #### [facility] [address] [place] [address] Dr. Sarmad Patino BILIRUBIN CONJUGATED (DIRECT )on 09-10-2021 BILI, CONJUGATED 0.1 mg/dL Normal 0.0-0.2 [facility] Comment on above: Performed By: #### D DAVIDSON, MG, PHOS, CMP, LIPID, URIC #### [facility] [address] [place] [address] Dr. Sarmad Patino CBC AUTO DIFFon 09-10-2021 BASO # 0.0 103/ul Normal 0.0-0.1 [facility] Comment on above: Performed By: #### D DAVIDSON, MG, PHOS, CMP, LIPID, URIC #### [facility] [address] [place] [address] Dr. Sarmad Patino Basophils/100 WBC (Bld) 0.1 % Critically low 0.2-2.0 [facility] Comment on above: Performed By: #### D DAVIDSON, MG, PHOS, CMP, LIPID, URIC #### [facility] [address] [place] [address] Dr. Sarmad Patino EO # 0.2 103/ul Normal 0.0-0.7 [facility] Comment on above: Performed By: #### D DAVIDSON, MG, PHOS, CMP, LIPID, URIC #### [facility] [address] [place] [address] Dr. Sarmad Patino Eosinophils/100 WBC (Bld) 2.3 % Normal 0.9-7.0 [facility] Comment on above: Performed By: #### D DAVIDSON, MG, PHOS, CMP, LIPID, URIC #### [facility] [address] [place] [address] Dr. Sarmad Patino Erythrocyte distribution width (RBC) [Ratio] 13.6 % Normal 11.0-15.0 [facility] Comment on above: Performed By: #### D DAVIDSON, MG, PHOS, CMP, LIPID, URIC #### [facility] [address] [place] [address] Dr. Sarmad Patino Hematocrit (Bld) [Volume fraction] 45.1 % Normal 36.0-48.0 [facility] Comment on above: Performed By: #### D DAVIDSON, MG, PHOS, CMP, LIPID, URIC #### [facility] [address] [place] [address] Dr. Sarmad Patino Hemoglobin (Bld) [Mass/Vol] 14.7 g/dL Normal 12.0-16.0 [facility] Comment on above: Performed By: #### D DAVIDSON, MG, PHOS, CMP, LIPID, URIC #### [facility] [address] [place] [address] Dr. Sarmad Patino IG # 0.03 10e3/ul Normal 0.00-0.03 [facility] Comment on above: Performed By: #### D DAVIDSON, MG, PHOS, CMP, LIPID, URIC #### [facility] [address] [place] [address] Dr. Sarmad Patino IG % 0.4 % Normal 0.0-0.5 [facility] Comment on above: Performed By: #### D DAVIDSON, MG, PHOS, CMP, LIPID, URIC #### [facility] [address] [place] [address] Dr. Sarmad Patino LYMPH # 1.3 103/ul Normal 1.2-3.8 [facility] Comment on above: Performed By: #### D DAVIDSON, MG, PHOS, CMP, LIPID, URIC #### [facility] [address] [place] [address] Dr. Sarmad Patino Lymphocytes/100 WBC (Bld) 18.9 % Critically low 20.5-60.0 [facility] Comment on above: Performed By: #### D DAVIDSON, MG, PHOS, CMP, LIPID, URIC #### [facility] [address] [place] [address] Dr. Sarmad Patino MANUAL DIFF REQ NO Normal [facility] Comment on above: Performed By: #### D DAVIDSON, MG, PHOS, CMP, LIPID, URIC #### [facility] [address] [place] [address] Dr. Sarmad Patino MCH (RBC) [Entitic mass] 29.0 pg Normal 26.7-34.0 [facility] Comment on above: Performed By: #### D DAVIDSON, MG, PHOS, CMP, LIPID, URIC #### [facility] [address] [place] [address] Dr. Sarmad Patino MCHC (RBC) [Mass/Vol] 32.6 g/dL Normal 29.9-35.2 [facility] Comment on above: Performed By: #### D DAVIDSON, MG, PHOS, CMP, LIPID, URIC #### [facility] [address] [place] [address] Dr. Sarmad Patino MCV (RBC) [Entitic vol] 89.0 fL Normal 81.0-99.0 [facility] Comment on above: Performed By: #### D DAVIDSON, MG, PHOS, CMP, LIPID, URIC #### [facility] [address] [place] [address] Dr. Sarmad Patino MONO # 0.8 103/ul Normal 0.3-0.8 [facility] Comment on above: Performed By: #### D DAVIDSON, MG, PHOS, CMP, LIPID, URIC #### [facility] [address] [place] [address] Dr. Sarmad Patino Monocytes/100 WBC (Bld) 11.9 % Normal 1.7-12.0 [facility] Comment on above: Performed By: #### D DAVIDSON, MG, PHOS, CMP, LIPID, URIC #### [facility] [address] [address] [address] Sarmad Patino NEUT # 4.6 103/ul Normal 1.4-6.5 [facility] Comment on above: Performed By: #### D DAVIDSON, MG, PHOS, CMP, LIPID, URIC #### [facility] [address] [address] [address] Sarmad Patino Neutrophils/100 WBC (Bld) 66.4 % Normal 43.0-75.0 [facility] Comment on above: Performed By: #### D DAVIDSON, MG, PHOS, CMP, LIPID, URIC #### [facility] [address] [address] [address] Sarmad Patino Platelet mean volume (Bld) [Entitic vol] 10.6 fL Normal 9.5-13.5 [facility] Comment on above: Performed By: #### D DAVIDSON, MG, PHOS, CMP, LIPID, URIC #### [facility] [address] [address] [address] Sarmad Patino PLT 233 103/ul Normal 150-450 [facility] Comment on above: Performed By: #### D DAVIDSON, MG, PHOS, CMP, LIPID, URIC #### [facility] [address] [address] [address] Sarmad Patino RBC 5.07 106/ul Normal 4.20-5.40 [facility] Comment on above: Performed By: #### D DAVIDSON, MG, PHOS, CMP, LIPID, URIC #### [facility] [address] [address] [address] Sarmad Patino WBC 6.9 103/ul Normal 4.0-11.0 [facility] Comment on above: Performed By: #### D DAVIDSON, MG, PHOS, CMP, LIPID, URIC #### [facility] [address] [address] [address] Sarmad Patino GLYCOHEMOGLOBIN A1Con 2021 ADA RECOMMENDATION SEE BELOW Normal [facility] Comment on above: Result Comment: ADA RECOMMENDED LIMIT 4.0 - 6.0 ADA THERAPEUTIC TARGET < 7.0 ACTION SUGGESTED > 7.0 Performed By: #### D DAVIDSON, MG, PHOS, CMP, LIPID, URIC #### [facility] [address] [address] [address] Sarmad Patino Glucose [Mass/Vol] 120 mg/dL Normal [facility] Comment on above: Performed By: #### D DAVIDSON, MG, PHOS, CMP, LIPID, URIC #### [facility] [address] [address] [address] Sarmad Patino HbA1c (Bld) [Mass fraction] 5.8 % Normal 4.5-6.2 [facility] Comment on above: Performed By: #### D DAVIDSON, MG, PHOS, CMP, LIPID, URIC #### [facility] [address] [address] [address] Sarmad Patino LIPID PROFILEon 09-10-2021 CHOL-HDL RATIO NORM SEE BELOW Normal [facility] Comment on above: Result Comment: 3.3 - 4.4 LOW RISK 4.4 - 7.1 AVERAGE RISK 7.1 - 11.0 MODERATE RISK >11.0 HIGH RISK Performed By: #### D DAVIDSON, MG, PHOS, CMP, LIPID, URIC #### [facility] [address] [address] [address] Sarmad Patino Cholesterol [Mass/Vol] 150 mg/dL Normal <=200 [facility] Comment on above: Performed By: #### D DAVIDSON, MG, PHOS, CMP, LIPID, URIC #### [facility] [address] [address] [address] Sarmad Patino Cholesterol in HDL [Mass/Vol] 47 mg/dL Normal 40-60 [facility] Comment on above: Performed By: #### D DAVIDSON, MG, PHOS, CMP, LIPID, URIC #### [facility] [address] [address] [address] Sarmad Patino Cholesterol in LDL [Mass/Vol] 78.4 mg/dL Normal [facility] Comment on above: Performed By: #### D DAVIDSON, MG, PHOS, CMP, LIPID, URIC #### [facility] [address] [address] [address] Sarmad Patino Cholesterol.total/Cho lesterol in HDL [Mass ratio] 3.2 {ratio} Normal [facility] Comment on above: Performed By: #### D DAVIDSON, MG, PHOS, CMP, LIPID, URIC #### [facility] [address] [address] [address] Sarmad Patino HDL NORMAL > or = 60 mg/dl - LO W CARDIOVASCULAR RISK <40 mg/dl - HIGH CARDIOVASCULAR RISK Normal [facility] Comment on above: Performed By: #### D DAVIDSON, MG, PHOS, CMP, LIPID, URIC #### [facility] [address] [place] [address] Dr. Sarmad Patino LDL CALC NORMAL SEE BELOW Normal [facility] Comment on above: Result Comment: <100 mg/dl OPTIMAL 100 - 129 mg/dl NEAR OR ABOVE OPTIMAL 130 - 159 mg/dl BORDERLINE HIGH 160 - 189 mg/dl HIGH >190 mg/dl VERY HIGH Performed By: #### D DAVIDSON, MG, PHOS, CMP, LIPID, URIC #### [facility] [address] [address] [address] Sarmad Patino Triglyceride [Mass/Vol] 123 mg/dL Normal <=150 [facility] Comment on above: Performed By: #### D DAVIDSON, MG, PHOS, CMP, LIPID, URIC #### [facility] [address] [place] [address] Dr. Sarmad Patino VLDL CALC 24.6 mg/dL Normal [facility] Comment on above: Performed By: #### D DAVIDSON, MG, PHOS, CMP, LIPID, URIC #### [facility] [address] [place] [address] Dr. Sarmad Patino MAGNESIUMon 09-10-2021 Magnesium [Mass/Vol] 1.5 mg/dL Critically low 1.8-2.4 [facility] Comment on above: Performed By: #### D DAVIDSON, MG, PHOS, CMP, LIPID, URIC #### [facility] [address] [place] [address] Dr. Sarmad Patino PHOSPHORUSon 09-10-2021 Phosphate [Mass/Vol] 3.8 mg/dL Normal 2.6-4.7 [facility] Comment on above: Performed By: #### D DAVIDSON, MG, PHOS, CMP, LIPID, URIC #### [facility] [address] [place] [address] Dr. Sarmad Patino PROF 14(COMP METB)on 022 Albumin [Mass/Vol] 3.4 g/dL Normal 3.4-5.0 [facility] Comment on above: Performed By: #### D DAVIDSON, MG, PHOS, CMP, LIPID, URIC #### [facility] [address] [place] [address] Dr. Sarmad Patino Albumin/Globulin [Mass ratio] 0.9 {ratio} Normal [facility] Comment on above: Performed By: #### D DAVIDSON, MG, PHOS, CMP, LIPID, URIC #### [facility] [address] [place] [address] Dr. Sarmad Patino ALP [Catalytic activity/Vol] 143 U/L Critically high 46-116 [facility] Comment on above: Performed By: #### D DAVIDSON, MG, PHOS, CMP, LIPID, URIC #### [facility] [address] [place] [address] Dr. Sarmad Patino ALT [Catalytic activity/Vol] 19 U/L Normal 14-59 [facility] Comment on above: Performed By: #### D DAVIDSON, MG, PHOS, CMP, LIPID, URIC #### [facility] [address] [place] [address] Dr. Sarmad Patino Anion gap [Moles/Vol] 13.4 mmol/L Normal [facility] Comment on above: Performed By: #### D DAVIDSON, MG, PHOS, CMP, LIPID, URIC #### [facility] [address] [place] [address] Dr. Sarmad Patino AST [Catalytic activity/Vol] 24 U/L Normal 15-37 [facility] Comment on above: Performed By: #### D DAVIDSON, MG, PHOS, CMP, LIPID, URIC #### [facility] [address] [address] [address] Sarmad Patino Bilirubin [Mass/Vol] 0.4 mg/dL Normal 0.2-1.0 [facility] Comment on above: Performed By: #### D DAVIDSON, MG, PHOS, CMP, LIPID, URIC #### [facility] [address] [address] [address] Sarmad Patino Calcium [Mass/Vol] 9.3 mg/dL Normal 8.5-10.1 [facility] Comment on above: Performed By: #### D DAVIDSON, MG, PHOS, CMP, LIPID, URIC #### [facility] [address] [address] [address] Sarmad Patino Chloride [Moles/Vol] 106 mmol/L Normal 98-107 [facility] Comment on above: Performed By: #### D DAVIDSON, MG, PHOS, CMP, LIPID, URIC #### [facility] [address] [place] [address] Dr. Sarmad Patino CO2 [Moles/Vol] 25.5 mmol/L Normal 21.0-32.0 [facility] Comment on above: Performed By: #### D DAVIDSON, MG, PHOS, CMP, LIPID, URIC #### [facility] [address] [place] [address] Dr. Sarmad Patino Creatinine [Mass/Vol] 0.85 mg/dL Normal 0.55-1.02 [facility] Comment on above: Performed By: #### D DAVIDSON, MG, PHOS, CMP, LIPID, URIC #### [facility] [address] [place] [address] Dr. Sarmad Patino EGFR-AF BURUNDIAN >60 Normal >=60 [facility] Comment on above: Performed By: #### D DAVIDSON, MG, PHOS, CMP, LIPID, URIC #### [facility] [address] [place] [address] Dr. Sarmad Patino EGFR-NON AF BURUNDIAN >60 Normal >=60 [facility] Comment on above: Performed By: #### D DAVIDSON, MG, PHOS, CMP, LIPID, URIC #### [facility] [address] [address] [address] Sarmad Patino Globulin (S) [Mass/Vol] 3.8 g/dL Normal [facility] Comment on above: Performed By: #### D DAVIDSON, MG, PHOS, CMP, LIPID, URIC #### [facility] [address] [address] [address] Sarmad Patino Glucose [Mass/Vol] 100 mg/dL Normal 74-106 [facility] Comment on above: Performed By: #### D DAVIDSON, MG, PHOS, CMP, LIPID, URIC #### [facility] [address] [place] [address] Dr. Sarmad Patino Potassium [Moles/Vol] 3.9 mmol/L Normal 3.5-5.1 [facility] Comment on above: Performed By: #### D DAVIDSON, MG, PHOS, CMP, LIPID, URIC #### [facility] [address] [place] [address] Dr. Sarmad Patino Protein [Mass/Vol] 7.2 g/dL Normal 6.4-8.2 [facility] Comment on above: Performed By: #### D DAVIDSON, MG, PHOS, CMP, LIPID, URIC #### [facility] [address] [place] [address] Dr. Sarmad Patino Sodium [Moles/Vol] 141 mmol/L Normal 136-145 [facility] Comment on above: Performed By: #### D DAVIDSON, MG, PHOS, CMP, LIPID, URIC #### [facility] [address] [place] [address] Dr. Sarmad Patino Urea nitrogen [Mass/Vol] 16.0 mg/dL Normal 7.0-18.0 [facility] Comment on above: Performed By: #### D DAVIDSON, MG, PHOS, CMP, LIPID, URIC #### [facility] [address] [place] [address] Dr. Sarmad Patino Urea nitrogen/Creatinine [Mass ratio] 18.8 mg/mg Normal [facility] Comment on above: Performed By: #### D DAVIDSON, MG, PHOS, CMP, LIPID, URIC #### [facility] [address] [address] [address] Sarmad Patino URIC ACID SERUMon 09-10-2021 Urate [Mass/Vol] 4.8 mg/dL Normal 2.6-6.0 [facility] Comment on above: Performed By: #### D DAVIDSON, MG, PHOS, CMP, LIPID, URIC #### [facility] [id number] Sarmad Patino Urinalysis - AUTOMATEDon Appearance (U) cloudy [employer] Other Bilirubin Ql (U) Negative [employer] Other Color (U) pale yellow [employer] Other Glucose Ql (U) Negative [employer] Other Hemoglobin Ql (U) moderate [employer] Other Ketones Ql (U) Negative [employer] Other Leukocyte esterase Test strip Ql (U) moderate [employer] [facility] Other Nitrite Ql (U) Negative [employer] Other pH (U) 7.0 [pH] [employer] [facility] Other Protein Ql (U) Negative [employer] Other Specific gravity (U) [Rel density] 1.010 [employer] [facility] Other Urobilinogen (U) [Mass/Vol] 0.2 mg/dL [employer] [facility] Other Urinalysis - AUTOMATED [employer] [facility] Other Urine Cultureon 08-14-2021 Urine Culture 100,000 [employer] [facility] Other Urine Culture <16 Susceptible [employer] Other Urine Culture >16 Resistant [employer] [facility] Other Urine Culture <4 Susceptible [employer] Other Urine Culture <2 Susceptible [employer] Other Urine Culture <1 Susceptible [employer] Other Urine Culture <0.5 Susceptible [employer] Other Urine Culture <32 Susceptible [employer] Other Urine Culture <2/38 Susceptible [employer] Other Bacteria identified Cx Nom (U) Reason for Exam Dysuria Urine ORGANISM: Klebsiella pneumoniae (O:KLEPNE) [place] Count 100,000 Aerobic SHYLA Charge (NUC86) ---- [...] RESISTANT TO ALL B-LACTAM DRUGS. PERFORMED BY: [place] [id number] [address] [place] [id number] PATHOLOGIST INCLUSION MANAGER LOVELY COLE M.D. Normal [facility] Comment on above: Performed By: #### C UU #### [facility] [address] *URINE CULTUREon 12-31-2017 Bacteria identified in Urine by Culture Clinical Report: (D) Specimen: URINE Collected: 12/31/2017 13:40 Status: Final Last Updated: 01/04/2018 12:38 ISO (Final) Diphtheroids >100,000 Cfu/Ml 2 [employer]ologies ISO (Final) Aerococcus urinae 50,000 - 100,000 Cfu/mL Result changed by RFISCHB on 01/04/2018 12:38. The previous result was: ISO (Prelim) Normal [facility] Comment on above: Performed By: #### 4 [id number], [id number], [id number], [id number], [id number], [id number] ####[facility] CBC W/DIFFon 12-25-2017 ABS BASOPHILS 0.0 10*3/uL Normal 0.0-0.2 [facility] Comment on above: Performed By: #### 5 [id number] ####[facility] ABS IMM GRANS 0.0 10*3/uL Normal 0.0-0.2 [facility] Comment on above: Performed By: #### 5 0103 ####[facility] ABS NEUTROPHILS 5.0 10*3/uL Normal 1.6-7.6 The [facility] Comment on above: Performed By: #### 5 0103 ####[facility] Basophils Auto #/vol (Bld) 0.1 % Normal 0.0-1.0 The [facility] Comment on above: Performed By: #### 5 0103 ####[facility]3000 [facility].[address] Eosinophils Auto #/vol (Bld) 0.1 10*3/uL Normal 0.0-0.5 The [facility] Comment on above: Performed By: #### 3 ####[facility]3000 [facility].[address] Eosinophils/100 WBC Auto (Bld) 1.6 % Normal 0.0-6.0 The [facility] Comment on above: Performed By: #### 3 ####[facility] Erythrocyte distribution width Auto Ratio (RBC) 14.6 % Normal 11.5-15.0 The [facility] Comment on above: Performed By: #### 102 ####[facility]3000 [facility].[address] Hematocrit Auto Volume Fraction (Bld) 44.9 % Normal 36.0-45.0 The [facility] Comment on above: Performed By: #### 102 ####[facility]3000 [facility].[address] Hemoglobin mass conc (Bld) 14.9 g/dL Normal 12.0-15.0 The [facility] Comment on above: Performed By: #### 3 ####[facility]3000 [facility].[address] IMMATURE GRANS 0.4 % Normal 0.0-1.0 The [facility] Comment on above: Performed By: #### 3 ####[facility] Lymphocytes Auto #/vol (Bld) 1.0 10*3/uL Low 1.2-4.0 The [facility] Comment on above: Performed By: #### 5 3 ####[facility]3000 [facility].[address] Lymphocytes/100 WBC Auto (Bld) 14.9 % Low 20.0-45.0 The [facility] Comment on above: Performed By: #### 3 ####[facility]3000 [facility].[address] MCH Auto Entitic mass (RBC) 28.8 pg Normal 27.0-33.0 The [facility] Comment on above: Performed By: #### 3 ####[facility] MCHC Auto mass conc (RBC) 33.2 g/dL Normal 32.0-35.0 The [facility] Comment on above: Performed By: #### 102 ####[facility] MCV Auto Entitic volume (RBC) 86.7 fL Normal 82.0-98.0 [facility] Comment on above: Performed By: #### 102 ####[facility] Monocytes Auto #/vol (Bld) 0.7 10*3/uL Normal 0.1-1.0 [facility] Comment on above: Performed By: #### 3 ####[facility] MONOS 10.6 % Normal 5.0-12.0 [facility] Comment on above: Performed By: #### 102 ####[facility] Neutrophils/100 WBC Auto (Bld) 72.4 % High 40.0-72.0 [facility] Comment on above: Performed By: #### 102 ####[facility]3000 [facility].[address] Nucleated RBC/100 WBC Ratio (Bld) 0 % Normal 0-0 The [facility] Comment on above: Performed By: #### 5 0103 ####[facility] [place] [address], [facility] PLAT CNT 203 10*3/uL Normal 150-[address] [facility] Comment on above: Performed By: #### 5 010 ####[facility]3000 [facility] [place] [address], [facility] RBC Auto #/vol (Bld) 5.18 10*6/uL High 3.80-5.00 Th e [facility] Comment on above: Performed By: #### 5 0103 ####[facility]3000 [facility].[address] WBC Auto #/vol (Bld) 6.90 10*3/uL Normal 4.00-10.60 Th e [facility] Comment on above: Performed By: #### 5 0103 ####[facility]3000 [facility].[address] COMP METABOLIC PANELon 12-25 Albumin mass conc 4.3 g/dL Normal 3.5-5.7 The [facility] Comment on above: Performed By: #### 4 1000, 74262, 80758, 41131, 11026, 87806 ####[facility]3000 [facility] [place] [place] [address], [facility] ALKALINE PHOSPH 118 IU/L High 34-104 The [facility] Comment on above: Performed By: #### 4 1000, 77954, 08380, 53324, 11953, 13926 ####[facility]3000 [facility] [place] [address], [facility] ALT enzyme act/vol 11 U/L Normal 7-52 The [facility] Comment on above: Performed By: #### 4 1000, 45438, 59402, 03607, 86003, 47475 ####[facility] [place] [address], [facility] AST enzyme act/vol 17 U/L Normal 13-39 The [facility] Comment on above: Performed By: #### 4 1000, 09175, 12239, 88665, 91986, 20418 ####[facility] [place] [address], [facility] Bilirubin mass conc 0.4 mg/dL Normal 0.3-1.0 The [facility] Comment on above: Performed By: #### 4 1000, 29595, 45696, 64474, 23809, 47070 ####[facility] [place] [address], [facility] Calcium mass conc 9.8 mg/dL Normal 8.6-10.3 The [facility] Comment on above: Performed By: #### 4 1000, 47057, 89869, 55768, 20324, 59827 ####[facility] [place] [address], [facility] Chloride molar conc 104 mmol/L Normal 98-107 The [facility] Comment on above: Performed By: #### 4 1000, 23259, 04359, 06317, 84514, 65959 ####[facility] [place] [address], [place] CO2 molar conc 27 mmol/L Normal 21-31 The [facility] Comment on above: Performed By: #### 4 1000, 66339, 31450, 22839, 55706, 16271 ####[facility] [place] [address], [place] Creatinine mass conc 0.76 mg/dL Normal 0.60-1.20 The [facility] Comment on above: Performed By: #### 4 1000, 11264, 21102, 17298, 85787, 84736 ####[facility] [place] [address], [place] GFR/1.73 sq M predicted among blacks MDRD vol rate/area (S/P/Bld) mL/min/{1.73_m2} Normal >60 The [facility] Comment on above: Performed By: #### 4 1000, 09885, 99291, 54963, 44020, 30427 ####[facility] [place] [address], [place] GFR/1.73 sq M predicted among non-blacks MDRD vol rate/area (S/P/Bld) mL/min/{1.73_m2} Normal >60 The [facility] Comment on above: Performed By: #### 4 1000, 81637, 58350, 30419, 28428, 98724 ####[facility] [place] [address], [place] Glucose mass conc 94 mg/dL Normal 70-100 The [facility] Comment on above: Performed By: #### 4 1000, 81323, 51038, 22408, 38272, 47354 ####[facility] [place] [address], [place] Potassium molar conc 3.9 mmol/L Normal 3.5-5.1 The [facility] Comment on above: Performed By: #### 4 1000, 64102, 16404, 30689, 49095, 39682 ####[facility] [place] [address], [place] Protein mass conc 7.2 g/dL Normal 6.0-8.3 The [facility] Comment on above: Performed By: #### 4 1000, 95593, 89752, 31755, 96826, 44519 ####[facility] Sodium molar conc 140 mmol/L Normal 136-145 The [facility] Comment on above: Performed By: #### 4 1000, 03856, 72253, 60282, 27972, 35416 ####[facility] Urea nitrogen mass conc 15 mg/dL Normal 7-25 The [facility] Comment on above: Performed By: #### 4 1000, 16512, 12943, 82685, 84241, 03998 ####[facility]3000 [facility].[address] DIRECT BILIon 12-25-2017 Bilirubin.direct mass conc 0.1 mg/dL Normal 0.0-0.2 [facility] Comment on above: Performed By: #### 4 1000, 03691, 99318, 99458, 90406, 16776 ####[facility]3000 [facility].[address] EVEROLIMUS 49571we 8 EVEROLIMUS 4.7 ng/mL Normal The [facility] Comment on above: Result Comment: Ther [...] the transplantcenter.Test developed and characteristics determined by [employer] [facility]. See Compliance Statement B: [employer]/CSPerformed by [employer],[address] [place] [address] [email or web address], Leonid Antonio MD - Lab. Director LIPID PROFILEon 12-25-2017 Cholesterol in HDL mass conc 51 mg/dL Normal 23-92 The [facility] Comment on above: Result Comment: Slig ht variation in normal range could be due to gender and/or age.HDL CHOLESTEROL REFERENCE RANGE:20 years and older Cardiovascular Risk> or =60 mg/dL [id number] TO 59 mg/dL Low Risk<40 mg/dL High Risk Performed By: #### 4 5506, 25558, 39412, 26307, 54395, 55833 ####[facility]3000 [facility] [place] [address], [facility] Cholesterol in LDL mass conc 58 mg/dL Normal 0-130 The [facility] Comment on above: Result Comment: LDL IS A CALCULATIONLDL IS ONLY VALID IF THE TRIG IS LESS THAN 400. Performed By: #### 4 5506, 69465, 41234, 17968, 84715, 17500 ####[facility]3000 [place] [address], [facility] Cholesterol mass conc 122 mg/dL Normal 120-200 The [facility] Comment on above: Result Comment: CHOL ESTEROL REFERENCE RANGE:20 YEARS AND OLDER CARDIOVASCULAR RISKLess than 200 mg/dl Low Qfep669 to 239 mg/dl Borderline Vcma426 mg/dl and greater High Risk Performed By: #### 4 5506, 77087, 53771, 42568, 25531, 67908 ####[facility] [place] [address], [facility] Cholesterol.total/Cho lesterol in HDL mass ratio 2.4 {ratio} Normal .0-4.5 The [facility] Comment on above: Performed By: #### 4 5506, 93399, 08903, 38057, 19921, 74324 ####[facility] NON-HDL CHOLESTEROL 71 mg/dL Normal The [facility] Comment on above: Performed By: #### 4 5506, 21315, 42037, 45527, 39772, 94713 ####[facility] Triglyceride mass conc 65 mg/dL Normal 40-149 The [facility] Comment on above: Result Comment: TRIG LYCERIDE REFERENCE RANGE:20 YEARS AND OLDER CARDIOVASCULAR RISKLESS THAN 150 mg/dl LOW [id number] TO 199 mg/dl BORDERLINE [id number] mg/dl AND GREATER HIGH RISK Performed By: #### 4 5506, 87725, 44351, 03503, 80042, 12237 ####[facility] VLDL CHOL 13 mg/dL Normal 0-40 The [facility] Comment on above: Performed By: #### 4 5506, 05776, 78382, 94830, 03628, 26919 ####[facility] MAGNESIUM BLOODon 12-25-2017 Magnesium mass conc 1.8 mg/dL Low 1.9-2.7 The [facility] Comment on above: Performed By: #### 4 1000, 48834, 77137, 25538, 72106, 24279 ####[facility] [place] [address], [facility] PHOSPHORUS BLOODon 8 Phosphate mass conc 3.4 mg/dL Normal 2.5-5.0 The [facility] Comment on above: Performed By: #### 4 5506, 00826, 07158, 53517, 25945, 14927 ####[facility] [place] [address], [facility] TACROLIMUSon 12-25-2017 Tacrolimus mass conc (Bld) 6.4 ng/mL Normal 5.0-20.0 The [facility] Comment on above: Result Comment: The [employer] Tacrolimus assay is a delayed one-step immunoassayfor the quantitative determination of tacrolimus in human whole bloodusing the chemiluminescent microparticle immunoassay (CMIA) technologywith flexible assay protocols, referred to as Chemiflex. Performed By: #### 4 1000, 87044, 76291, 94497, 04667, 55581 ####[facility] URIC ACID BLOODon 12-25-2017 Urate mass conc 4.7 mg/dL Normal 2.3-6.6 The [facility] Comment on above: Performed By: #### 4 5506, 99298, 38105, 60680, 60821, 07716 ####[place] [address] [address] CBC W/DIFFon 10-30-2017 ABS BASOPHILS 0.0 10*3/uL Normal 0.0-0.2 The [facility] Comment on above: Performed By: #### 4 5447, 38551 ####[place] [address] ABS IMM GRANS 0.0 10*3/uL Normal 0.0-0.2 The [facility] Comment on above: Performed By: #### 4 0521, 86286 ####[place] [address] ABS NEUTROPHILS 4.9 10*3/uL Normal 1.6-7.6 The [facility] Comment on above: Performed By: #### 4 9983, 52067 ####[place] [address] Basophils Auto #/vol (Bld) 0.1 % Normal 0.0-1.0 The [facility] Comment on above: Performed By: #### 4 2681, 12351 ####[facility] Eosinophils Auto #/vol (Bld) 0.1 10*3/uL Normal 0.0-0.5 [facility] Comment on above: Performed By: #### 9 8859, 67330 ####[facility]3000 [facility].[address] Eosinophils/100 WBC Auto (Bld) 1.4 % Normal 0.0-6.0 The [facility] Comment on above: Performed By: #### 4 6851, 87521 ####[place] [address] Erythrocyte distribution width Auto Ratio (RBC) 14.6 % Normal 11.5-15.0 [facility] Comment on above: Performed By: #### 7 9298, 75316 ####[address] Hematocrit Auto Volume Fraction (Bld) 46.8 % High 36.0-45.0 The [facility] Comment on above: Performed By: #### 6 4978, 72859 ####[place] [address] Hemoglobin mass conc (Bld) 15.1 g/dL High 12.0-15.0 [facility] Comment on above: Performed By: #### 4 0162, 98735 ####[facility] IMMATURE GRANS 0.4 % Normal 0.0-1.0 The [facility] Comment on above: Performed By: #### 5 7753, 78592 ####[facility] Lymphocytes Auto #/vol (Bld) 1.2 10*3/uL Normal 1.2-4.0 [facility] Comment on above: Performed By: #### 4 2604, 35951 ####[facility] Lymphocytes/100 WBC Auto (Bld) 16.6 % Low 20.0-45.0 [facility] Comment on above: Performed By: #### 4 7176, 97384 ####[facility] MCH Auto Entitic mass (RBC) 29.0 pg Normal 27.0-33.0 [facility] Comment on above: Performed By: #### 4 0580, 63482 ####[facility]3000 [facility].[address] MCHC Auto mass conc (RBC) 32.3 g/dL Normal 32.0-35.0 [facility] Comment on above: Performed By: #### 4 5732, 52043 ####[facility]3000 [facility].[address] MCV Auto Entitic volume (RBC) 89.8 fL Normal 82.0-98.0 [facility] Comment on above: Performed By: #### 4 5601, 36684 ####[facility]3000 [facility].[address] Monocytes Auto #/vol (Bld) 0.8 10*3/uL Normal 0.1-1.0 [facility] Comment on above: Performed By: #### 4 2435, 09279 ####[facility]3000 [facility].[address] MONOS 11.9 % Normal 5.0-12.0 The [facility] Comment on above: Performed By: #### 4 6020, 57079 ####[facility] Neutrophils/100 WBC Auto (Bld) 69.6 % Normal 40.0-72.0 [facility] Comment on above: Performed By: #### 4 6447, 08705 ####[place] [address] [facility].[address] Nucleated RBC/100 WBC Ratio (Bld) 0 % Normal 0-0 [facility] Comment on above: Performed By: #### 4 6447, 39112 ####[facility]3000 [facility].[address] PLAT CNT 200 10*3/uL Normal 150-[address] [facility] Comment on above: Performed By: #### 4 6447, 77599 ####[address] RBC Auto #/vol (Bld) 5.21 10*6/uL High 3.80-5.00 Th [facility] Comment on above: Performed By: #### 4 5047, 87911 ####[place] [address] [facility].[address] WBC Auto #/vol (Bld) 7.04 10*3/uL Normal 4.00-10.60 Th [facility] Comment on above: Performed By: #### 4 6447, 71412 ####[address] COMP METABOLIC PANELon 10-30 Albumin mass conc 4.1 g/dL Normal 3.5-5.7 [facility] Comment on above: Performed By: #### 4 6447, 57197 ####[address] ALKALINE PHOSPH 114 IU/L High 34-104 The [facility] Comment on above: Performed By: #### 4 6447, 77616 ####[address] [place] [address], [facility] ALT enzyme act/vol 16 U/L Normal 7-52 The [facility] Comment on above: Performed By: #### 4 2669, 10492 ####[facility] [place] [address], [place] AST enzyme act/vol 18 U/L Normal 13-39 The [facility] Comment on above: Performed By: #### 4 0151, 99904 ####[facility] [place] [address], [place] Bilirubin mass conc 0.4 mg/dL Normal 0.3-1.0 The [facility] Comment on above: Performed By: #### 2 0883, 75791 ####[facility] [place] [address], [place] Calcium mass conc 9.7 mg/dL Normal 8.6-10.3 [facility] Comment on above: Performed By: #### 2 0225, 68864 ####[facility] [place] [address], [place] Chloride molar conc 105 mmol/L Normal 98-107 The [facility] Comment on above: Performed By: #### 2 5114, 50275 ####[facility] [place] [address], [place] CO2 molar conc 28 mmol/L Normal 21-31 The [facility] Comment on above: Performed By: #### 8 1106, 06612 ####[facility] [place] [address], [place] Creatinine mass conc 0.82 mg/dL Normal 0.60-1.20 The [facility] Comment on above: Performed By: #### 0 4079, 54073 ####[facility] [place] [address], [place] GFR/1.73 sq M predicted among blacks MDRD vol rate/area (S/P/Bld) mL/min/{1.73_m2} Normal >60 The [facility] Comment on above: Performed By: #### 4 6251, 83256 ####[facility] [facility] [place] [address], [facility] GFR/1.73 sq M predicted among non-blacks MDRD vol rate/area (S/P/Bld) mL/min/{1.73_m2} Normal >60 [facility] Comment on above: Performed By: #### 4 7104, 54514 ####[facility]3000 [facility] [place] [address], [facility] Glucose mass conc 90 mg/dL Normal 70-100 [facility] Comment on above: Performed By: #### 4 1356, 33202 ####[facility]3000 [facility] [place] [address], [facility] Potassium molar conc 4.1 mmol/L Normal 3.5-5.1 [facility] Comment on above: Performed By: #### 1 2462, 95316 ####[facility]3000 [facility] [place] [address], [facility] Protein mass conc 6.9 g/dL Normal 6.0-8.3 [facility] Comment on above: Performed By: #### 1 3303, 37141 ####[facility] [facility] [place] [address], [facility] Sodium molar conc 138 mmol/L Normal 136-145 [facility] Comment on above: Performed By: #### 9 1098, 85888 ####[facility]3000 [facility] [id number], [place] Urea nitrogen mass conc 16 mg/dL Normal 7-25 [facility] Comment on above: Performed By: #### 2 7188, 41047 ####[facility] [place] [address], [facility] DIRECT BILIon 10-30-2017 Bilirubin.direct mass conc 0.0 mg/dL Normal 0.0-0.2 [facility] Comment on above: Performed By: #### 4 5506, 81338, 97043, 58027, 11195, 14686 ####[facility] [address], [facility] EVEROLIMUS 55025ur 8 EVEROLIMUS 6.0 ng/mL Normal The [facility] Comment on above: Result Comment: Ther [...] the transplantcenter.Test developed and characteristics determined by [employer]. See Compliance Statement B: [email or web address] by [employer],[address] [place] [address] [email or web address], Leonid Antonio MD - Lab. Director LIPID PROFILEon 10-30-2017 Cholesterol in HDL mass conc 50 mg/dL Normal 23-92 [facility] Comment on above: Result Comment: Slig ht variation in normal range could be due to gender and/or age.HDL CHOLESTEROL REFERENCE RANGE:20 years and older Cardiovascular Risk> or =60 mg/dL Yohkxfwmw42 TO 59 mg/dL Low Risk<40 mg/dL High Risk Performed By: #### 4 5506, 70552, 76026, 86151, 86517, 15974 ####[facility] [place] [address], [place] Cholesterol in LDL mass conc 85 mg/dL Normal 0-130 [facility] Comment on above: Result Comment: LDL IS A CALCULATIONLDL IS ONLY VALID IF THE TRIG IS LESS THAN 400. Performed By: #### 4 5506, 52820, 03332, 07888, 96261, 87741 ####[facility] [place] [address], [facility] Cholesterol mass conc 152 mg/dL Normal 120-200 [facility] Comment on above: Result Comment: CHOL ESTEROL REFERENCE RANGE:20 YEARS AND OLDER CARDIOVASCULAR RISKLess than 200 mg/dl Low Wnwv655 to 239 mg/dl Borderline Auhw703 mg/dl and greater High Risk Performed By: #### 4 5506, 33946, 55177, 66092, 48378, 48793 ####[facility] [place] [address], [facility] Cholesterol.total/Cho lesterol in HDL mass ratio 3.0 {ratio} Normal .0-4.5 [facility] Comment on above: Performed By: #### 4 5506, 85437, 14155, 59314, 49957, 05642 ####[facility] [place] [address], [place] NON-HDL CHOLESTEROL 102 mg/dL Normal The [facility] Comment on above: Performed By: #### 4 5506, 57329, 83754, 13551, 16142, 44324 ####[facility] [place] [address], [place] Triglyceride mass conc 87 mg/dL Normal 40-149 [facility] Comment on above: Result Comment: TRIG LYCERIDE REFERENCE RANGE:20 YEARS AND OLDER CARDIOVASCULAR RISKLESS THAN 150 mg/dl LOW [id number] TO 199 mg/dl BORDERLINE [id number] mg/dl AND GREATER HIGH RISK Performed By: #### 4 5506, 55301, 89966, 22053, 05521, 04153 ####[facility]3000 [facility].[address] VLDL CHOL 17 mg/dL Normal 0-40 The [facility] Comment on above: Performed By: #### 4 5506, 65702, 60206, 29585, 77519, 75752 ####[facility] [facility].[address] MAGNESIUM BLOODon 10-30-2017 Magnesium mass conc 1.9 mg/dL Normal 1.9-2.7 The [facility] Comment on above: Performed By: #### 4 5506, 95898, 54282, 90215, 91286, 54396 ####[facility] [facility].[address] PHOSPHORUS BLOODon 8 Phosphate mass conc 3.7 mg/dL Normal 2.5-5.0 The [facility] Comment on above: Performed By: #### 4 5506, 28870, 11510, 23193, 73881, 04677 ####[facility] [facility].[address] TACROLIMUSon 10-30-2017 Tacrolimus mass conc (Bld) 7.1 ng/mL Normal 5.0-20.0 The [facility] Comment on above: Result Comment: The [employer] Tacrolimus assay is a delayed one-step immunoassayfor the quantitative determination of tacrolimus in human whole bloodusing the chemiluminescent microparticle immunoassay (CMIA) technologywith flexible assay protocols, referred to as Chemiflex. Performed By: #### 9 9914 ####[facility] [facility] [place] [place] [address], [facility] URIC ACID BLOODon 10-30-2017 Urate mass conc 4.6 mg/dL Normal 2.3-6.6 The [facility] Comment on above: Performed By: #### 4 7747, 24347 ####[address] CBC W/DIFFon 10-23-2017 ABS BASOPHILS 0.0 10*3/uL Normal 0.0-0.2 The [facility] Comment on above: Performed By: #### 4 4647, 96887 ####[place] [address] ABS IMM GRANS 0.1 10*3/uL Normal 0.0-0.2 The [facility] Comment on above: Performed By: #### 4 0147, 61590 ####[address] ABS NEUTROPHILS 5.8 10*3/uL Normal 1.6-7.6 The [facility] Comment on above: Performed By: #### 4 9747, 27126 ####[address] Basophils Auto #/vol (Bld) 0.2 % Normal 0.0-1.0 The [facility] Comment on above: Performed By: #### 4 9947, 08054 ####[address] Eosinophils Auto #/vol (Bld) 0.1 10*3/uL Normal 0.0-0.5 The [facility] Comment on above: Performed By: #### 4 9347, 74894 ####[address] Eosinophils/100 WBC Auto (Bld) 0.7 % Normal 0.0-6.0 The [facility] Comment on above: Performed By: #### 5 9079, 26860 ####[address] [place] [address], [place] Erythrocyte distribution width Auto Ratio (RBC) 14.6 % Normal 11.5-15.0 The [facility] Comment on above: Performed By: #### 4 3064, 90253 ####[address] Hematocrit Auto Volume Fraction (Bld) 44.2 % Normal 36.0-45.0 The [facility] Comment on above: Performed By: #### 4 6155, 82735 ####[address] Hemoglobin mass conc (Bld) 14.2 g/dL Normal 12.0-15.0 The [facility] Comment on above: Performed By: #### 5 6935, 93489 ####[address] IMMATURE GRANS 1.4 % High 0.0-1.0 The [facility] Comment on above: Performed By: #### 5 0498, 84656 ####[address] Lymphocytes Auto #/vol (Bld) 2.1 10*3/uL Normal 1.2-4.0 The [facility] Comment on above: Performed By: #### 4 0390, 40176 ####[address] Lymphocytes/100 WBC Auto (Bld) 22.5 % Normal 20.0-45.0 The [facility] Comment on above: Performed By: #### 4 2734, 30335 ####[place] [address] MCH Auto Entitic mass (RBC) 28.5 pg Normal 27.0-33.0 The [facility] Comment on above: Performed By: #### 9 6393, 02806 ####[facility]3000 [facility].[address] MCHC Auto mass conc (RBC) 32.1 g/dL Normal 32.0-35.0 The [facility] Comment on above: Performed By: #### 4 7847, 82933 ####[facility].[address] MCV Auto Entitic volume (RBC) 88.8 fL Normal 82.0-98.0 The [facility] Comment on above: Performed By: #### 4 6447, 63670 ####[facility].[address] Monocytes Auto #/vol (Bld) 1.1 10*3/uL High 0.1-1.0 The [facility] Comment on above: Performed By: #### 4 1147, 91213 ####[facility]3000 [facility].[address] MONOS 12.0 % Normal 5.0-12.0 The [facility] Comment on above: Performed By: #### 4 9547, 11678 ####[facility].[address] Neutrophils/100 WBC Auto (Bld) 63.2 % Normal 40.0-72.0 The [facility] Comment on above: Performed By: #### 4 9747, 45110 ####[facility] [facility].[address] Nucleated RBC/100 WBC Ratio (Bld) 0 % Normal 0-0 The [facility] Comment on above: Performed By: #### 4 7890, 21922 ####[facility] [place] [address], [facility] PLAT CNT 241 10*3/uL Normal 150-[address] [facility] Comment on above: Performed By: #### 3 8310, 50869 ####[facility] [facility] [place] [address], [facility] RBC Auto #/vol (Bld) 4.98 10*6/uL Normal 3.80-5.00 Th e [facility] Comment on above: Performed By: #### 4 6447, 29075 ####[facility] [facility] [place] [address], [facility] WBC Auto #/vol (Bld) 9.14 10*3/uL Normal 4.00-10.60 Th e [facility] Comment on above: Performed By: #### 4 6447, 80081 ####[facility]3000 [facility].[address] COMP METABOLIC PANELon 10-23 Albumin mass conc 3.8 g/dL Normal 3.5-5.7 The [facility] Comment on above: Performed By: #### 4 6447, 64457 ####[facility]3000 [facility].[address] ALKALINE PHOSPH 96 IU/L Normal 34-104 [facility] Comment on above: Performed By: #### 4 6447, 46847 ####[facility] [facility] [place] [place] [address], [facility] ALT enzyme act/vol 15 U/L Normal 7-52 [facility] Comment on above: Performed By: #### 4 6447, 77041 ####[facility] [facility] [place] [place] [address], [facility] AST enzyme act/vol 13 U/L Normal 13-39 The Un [facility] Comment on above: Performed By: #### 4 6447, 23539 ####[facility] [place] [address], [facility] Bilirubin mass conc 0.4 mg/dL Normal 0.3-1.0 The [facility] Comment on above: Performed By: #### 4 7947, 90670 ####[facility].[place] [id number], [facility] Calcium mass conc 9.2 mg/dL Normal 8.6-10.3 The [facility] Comment on above: Performed By: #### 4 3897, 04813 ####[facility] [place] [address], [place] Chloride molar conc 102 mmol/L Normal 98-107 The [facility] Comment on above: Performed By: #### 4 2899, 52405 ####[facility] [id number], [place] CO2 molar conc 29 mmol/L Normal 21-31 The [facility] Comment on above: Performed By: #### 0 0521, 86766 ####[facility] [id number], [place] Creatinine mass conc 0.80 mg/dL Normal 0.60-1.20 The [facility] Comment on above: Performed By: #### 9 9989, 98746 ####[facility] [id number], [place] GFR/1.73 sq M predicted among blacks MDRD vol rate/area (S/P/Bld) mL/min/{1.73_m2} Normal >60 The [facility] Comment on above: Performed By: #### 8 7366, 00502 ####[facility] [place] [address], [place] GFR/1.73 sq M predicted among non-blacks MDRD vol rate/area (S/P/Bld) mL/min/{1.73_m2} Normal >60 The [facility] Comment on above: Performed By: #### 1 8463, 93913 ####[facility]3000 [facility].[address] Glucose mass conc 85 mg/dL Normal 70-100 The [facility] Comment on above: Performed By: #### 4 6447, 54784 ####[facility] [place], [place] [address]E.[address] Potassium molar conc 3.3 mmol/L Low 3.5-5.1 The [facility] Comment on above: Performed By: #### 4 6447, 36127 ####[facility] [facility].[address] Protein mass conc 6.5 g/dL Normal 6.0-8.3 The [facility] Comment on above: Performed By: #### 4 6447, 26657 ####[address] Sodium molar conc 139 mmol/L Normal 136-145 The [facility] Comment on above: Performed By: #### 4 6447, 28585 ####[place] [address] [facility].[address] Urea nitrogen mass conc 18 mg/dL Normal 7-25 The [facility] Comment on above: Performed By: #### 4 6447, 43762 ####[place] [address] [facility].[address] DIRECT BILIon 10-23-2017 Bilirubin.direct mass conc 0.1 mg/dL Normal 0.0-0.2 The [facility] Comment on above: Performed By: #### 4 6447, 59063 ####[address] EVEROLIMUS 78406hl 8 EVEROLIMUS 4.0 ng/mL Normal The [facility] Comment on above: Result Comment: Ther [...] the transplantcenter.Test developed and characteristics determined by [facility]. See Compliance Statement B: [email or web address] by [employer],[address] [place] [id number] sec.[email or web address], Leonid Antonio MD - Lab. Director LIPID PROFILEon 10-23-2017 Cholesterol in HDL mass conc 53 mg/dL Normal 23-92 The [facility] Comment on above: Result Comment: Slig ht variation in normal range could be due to gender and/or age.HDL CHOLESTEROL REFERENCE RANGE:20 years and older Cardiovascular Risk> or =60 mg/dL Qhotguldt83 TO 59 mg/dL Low Risk<40 mg/dL High Risk Performed By: #### 6 3027, 38227 ####[facility] [facility] [place] [place] [address], [facility] Cholesterol in LDL mass conc 68 mg/dL Normal 0-130 The [facility] Comment on above: Result Comment: LDL IS A CALCULATIONLDL IS ONLY VALID IF THE TRIG IS LESS THAN 400. Performed By: #### 0 4916, 01897 ####[facility] [facility] [place] [address], [facility] Cholesterol mass conc 135 mg/dL Normal 120-200 The [facility] Comment on above: Result Comment: CHOL ESTEROL REFERENCE RANGE:20 YEARS AND OLDER CARDIOVASCULAR RISKLess than 200 mg/dl Low Oioi411 to 239 mg/dl Borderline Ddux239 mg/dl and greater High Risk Performed By: #### 4 7746, 90082 ####[facility] [facility].[address] Cholesterol.total/Cho lesterol in HDL mass ratio 2.5 {ratio} Normal .0-4.5 The [facility] Comment on above: Performed By: #### 4 2086, 05854 ####[facility] [facility].[address] NON-HDL CHOLESTEROL 82 mg/dL Normal The [facility] Comment on above: Performed By: #### 4 6473, 28687 ####[facility] [facility].[address] Triglyceride mass conc 72 mg/dL Normal 40-149 The [facility] Comment on above: Result Comment: TRIG LYCERIDE REFERENCE RANGE:20 YEARS AND OLDER CARDIOVASCULAR RISKLESS THAN 150 mg/dl LOW [id number] TO 199 mg/dl BORDERLINE [id number] mg/dl AND GREATER HIGH RISK Performed By: #### 4 1133, 71005 ####[facility] [facility].[address] VLDL CHOL 14 mg/dL Normal 0-40 The [facility] Comment on above: Performed By: #### 4 0880, 85826 ####[facility] [facility] [place] [place] [address], [facility] MAGNESIUM BLOODon 10-23-2017 Magnesium mass conc 1.8 mg/dL Low 1.9-2.7 The [facility] Comment on above: Performed By: #### 4 0802, 49196 ####[facility] [facility] [place] [address], [facility] PHOSPHORUS BLOODon 8 Phosphate mass conc 3.7 mg/dL Normal 2.5-5.0 The [facility] Comment on above: Performed By: #### 4 6447, 14748 ####[place] [address] [address] TACROLIMUSon 10-23-2017 Tacrolimus mass conc (Bld) 2.6 ng/mL Low 5.0-20.0 The [facility] Comment on above: Result Comment: The [employer] Tacrolimus assay is a delayed one-step immunoassayfor the quantitative determination of tacrolimus in human whole bloodusing the chemiluminescent microparticle immunoassay (CMIA) technologywith flexible assay protocols, referred to as Chemiflex. Performed By: #### 4 6447, 37444 ####[place] [address] [address] URIC ACID BLOODon 10-23-2017 Urate mass conc 4.3 mg/dL Normal 2.3-6.6 The [facility] Comment on above: Performed By: #### 4 6447, 28386 ####[address] CBC W/DIFFon 09-25-2017 ABS BASOPHILS 0.0 10*3/uL Normal 0.0-0.2 The [facility] Comment on above: Performed By: #### 4 1000, 17310, 41894, 22689, 83101, 70639 ####[address] ABS IMM GRANS 0.0 10*3/uL Normal 0.0-0.2 The [facility] Comment on above: Performed By: #### 4 1000, 08205, 63623, 90163, 42667, 77326 ####[address] ABS NEUTROPHILS 4.4 10*3/uL Normal 1.6-7.6 The [facility] Comment on above: Performed By: #### 4 1000, 82916, 30525, 33862, 40622, 75377 ####[facility] Basophils Auto #/vol (Bld) 0.2 % Normal 0.0-1.0 The [facility] Comment on above: Performed By: #### 4 1000, 61177, 21663, 54769, 48539, 75137 ####[facility] Eosinophils Auto #/vol (Bld) 0.1 10*3/uL Normal 0.0-0.5 The [facility] Comment on above: Performed By: #### 4 1000, 54263, 50538, 53719, 88038, 15036 ####[facility] Eosinophils/100 WBC Auto (Bld) 2.2 % Normal 0.0-6.0 The [facility] Comment on above: Performed By: #### 4 1000, 02575, 14699, 79216, 76102, 94989 ####[facility]3000 [facility].[address] Erythrocyte distribution width Auto Ratio (RBC) 14.0 % Normal 11.5-15.0 The [facility] Comment on above: Performed By: #### 4 1000, 25833, 52489, 98619, 11200, 03035 ####[facility]3000 [facility].[address] Hematocrit Auto Volume Fraction (Bld) 44.8 % Normal 36.0-45.0 The [facility] Comment on above: Performed By: #### 4 1000, 82924, 28556, 59904, 25651, 93634 ####[facility] Hemoglobin mass conc (Bld) 14.5 g/dL Normal 12.0-15.0 The [facility] Comment on above: Performed By: #### 4 1000, 63372, 80175, 31548, 07184, 28988 ####[facility] IMMATURE GRANS 0.3 % Normal 0.0-1.0 The [facility] Comment on above: Performed By: #### 4 1000, 46300, 73364, 94893, 18846, 86130 ####[facility] Lymphocytes Auto #/vol (Bld) 1.1 10*3/uL Low 1.2-4.0 The [facility] Comment on above: Performed By: #### 4 1000, 78110, 83643, 61008, 78296, 60740 ####[facility] Lymphocytes/100 WBC Auto (Bld) 17.0 % Low 20.0-45.0 The [facility] Comment on above: Performed By: #### 4 1000, 72988, 49042, 10376, 85967, 87247 ####[facility] MCH Auto Entitic mass (RBC) 28.6 pg Normal 27.0-33.0 The [facility] Comment on above: Performed By: #### 4 1000, 90194, 31091, 62253, 35543, 00059 ####[facility] MCHC Auto mass conc (RBC) 32.4 g/dL Normal 32.0-35.0 The [facility] Comment on above: Performed By: #### 4 1000, 14246, 34256, 70828, 56108, 44917 ####[facility]3000 [facility].[address] MCV Auto Entitic volume (RBC) 88.4 fL Normal 82.0-98.0 The [facility] Comment on above: Performed By: #### 4 1000, 38902, 63313, 53210, 43432, 95365 ####[facility] Monocytes Auto #/vol (Bld) 0.7 10*3/uL Normal 0.1-1.0 The [facility] Comment on above: Performed By: #### 4 1000, 53077, 44311, 47295, 48157, 88621 ####[facility] MONOS 11.5 % Normal 5.0-12.0 The [facility] Comment on above: Performed By: #### 4 1000, 59477, 47813, 00950, 00645, 59375 ####[facility] Neutrophils/100 WBC Auto (Bld) 68.8 % Normal 40.0-72.0 The [facility] Comment on above: Performed By: #### 4 1000, 86815, 51040, 22359, 99311, 51731 ####[facility]3000 [facility].[address] Nucleated RBC/100 WBC Ratio (Bld) 0 % Normal 0-0 The [facility] Comment on above: Performed By: #### 4 1000, 32053, 50454, 52211, 97635, 35553 ####[facility] PLAT CNT 212 10*3/uL Normal 150-[address] [facility] Comment on above: Performed By: #### 4 1000, 08479, 86712, 21647, 79141, 29603 ####[facility] RBC Auto #/vol (Bld) 5.07 10*6/uL High 3.80-5.00 Th e [facility] Comment on above: Performed By: #### 4 1000, 34537, 48262, 15718, 07017, 42628 ####[facility] WBC Auto #/vol (Bld) 6.34 10*3/uL Normal 4.00-10.60 Th e [facility] Comment on above: Performed By: #### 4 1000, 04250, 26787, 27026, 08467, 71294 ####[facility]3000 [facility].[address] COMP METABOLIC PANELon 09-25 Albumin mass conc 4.0 g/dL Normal 3.5-5.7 The [facility] [place] [facility] Comment on above: Performed By: #### 4 6447, 73135 ####[facility]3000 [facility].[address] ALKALINE PHOSPH 112 IU/L High 34-104 The [facility] Comment on above: Performed By: #### 4 5247, 38465 ####[facility]3000 [facility].[address] ALT enzyme act/vol 11 U/L Normal 7-52 [facility] Comment on above: Performed By: #### 4 6447, 11219 ####[facility]3000 [facility].[address] AST enzyme act/vol 17 U/L Normal 13-39 [facility] Comment on above: Performed By: #### 4 2878, 46477 ####[facility]3000 [facility].[address] Bilirubin mass conc 0.5 mg/dL Normal 0.3-1.0 [facility] Comment on above: Performed By: #### 4 6952, 73798 ####[facility] [place] [address], [place] Calcium mass conc 9.6 mg/dL Normal 8.6-10.3 The [facility] Comment on above: Performed By: #### 4 4985, 48868 ####[facility] [place] [address], [place] Chloride molar conc 104 mmol/L Normal 98-107 [facility] Comment on above: Performed By: #### 4 9322, 33479 ####[facility] [place] [address], [place] CO2 molar conc 28 mmol/L Normal 21-31 The [facility] Comment on above: Performed By: #### 6 1615, 73335 ####[facility] [place] [address], [place] Creatinine mass conc 0.83 mg/dL Normal 0.60-1.20 The [facility] Comment on above: Performed By: #### 8 2883, 82282 ####[facility] [place] [address], [place] GFR/1.73 sq M predicted among blacks MDRD vol rate/area (S/P/Bld) mL/min/{1.73_m2} Normal >60 The [facility] Comment on above: Performed By: #### 9 4496, 51801 ####[facility] [place] [address], [place] GFR/1.73 sq M predicted among non-blacks MDRD vol rate/area (S/P/Bld) mL/min/{1.73_m2} Normal >60 [facility] Comment on above: Performed By: #### 3 2180, 00403 ####[facility] [place] [address], [place] Glucose mass conc 91 mg/dL Normal 70-100 The [facility] Comment on above: Performed By: #### 4 6447, 64395 ####[place] [address] [facility].[address] Potassium molar conc 3.9 mmol/L Normal 3.5-5.1 The [facility] Comment on above: Performed By: #### 4 6447, 39272 ####[address] Protein mass conc 7.0 g/dL Normal 6.0-8.3 The [facility] Comment on above: Performed By: #### 4 6447, 67916 ####[address] Sodium molar conc 140 mmol/L Normal 136-145 The [facility] Comment on above: Performed By: #### 4 6447, 40571 ####[address] Urea nitrogen mass conc 15 mg/dL Normal 7-25 The [facility] Comment on above: Performed By: #### 4 6447, 86339 ####[address] DIRECT BILIon 09-25-2017 Bilirubin.direct mass conc 0.1 mg/dL Normal 0.0-0.2 The [facility] Comment on above: Performed By: #### 4 6447, 47150 ####[address] EVEROLIMUS 62829ol 8 EVEROLIMUS 5.1 ng/mL Normal The [facility] Comment on above: Result Comment: Ther [...] the transplantcenter.Test developed and characteristics determined by [employer]. See Compliance Statement B: [email or web address] by [employer],[address] [place] [id number] npy.[email or web address], Leonid Antonio MD - Lab. Director LIPID PROFILEon 09-25-2017 Cholesterol in HDL mass conc 48 mg/dL Normal 23-92 The [facility] Comment on above: Result Comment: Slig ht variation in normal range could be due to gender and/or age.HDL CHOLESTEROL REFERENCE RANGE:20 years and older Cardiovascular Risk> or =60 mg/dL Aomyjkehc87 TO 59 mg/dL Low Risk<40 mg/dL High Risk Performed By: #### 3 4424, 82652 ####[facility] Cholesterol in LDL mass conc 69 mg/dL Normal 0-130 The [facility] Comment on above: Result Comment: LDL IS A CALCULATIONLDL IS ONLY VALID IF THE TRIG IS LESS THAN 400. Performed By: #### 6 5732, 28649 ####[facility] Cholesterol mass conc 138 mg/dL Normal 120-200 The [facility] Comment on above: Result Comment: CHOL ESTEROL REFERENCE RANGE:20 YEARS AND OLDER CARDIOVASCULAR RISKLess than 200 mg/dl Low Lted002 to 239 mg/dl Borderline Avwy592 mg/dl and greater High Risk Performed By: #### 4 2526, 51818 ####[facility] Cholesterol.total/Cho lesterol in HDL mass ratio 2.9 {ratio} Normal .0-4.5 [facility] Comment on above: Performed By: #### 4 6296, 35976 ####[facility]3000 [facility].[address] NON-HDL CHOLESTEROL 90 mg/dL Normal The [facility] Comment on above: Performed By: #### 4 7552, 88583 ####[facility]3000 [facility].[address] Triglyceride mass conc 103 mg/dL Normal 40-149 [facility] Comment on above: Result Comment: TRIG LYCERIDE REFERENCE RANGE:20 YEARS AND OLDER CARDIOVASCULAR RISKLESS THAN 150 mg/dl LOW [id number] TO 199 mg/dl BORDERLINE [id number] mg/dl AND GREATER HIGH RISK Performed By: #### 4 5660, 65746 ####[facility] VLDL CHOL 21 mg/dL Normal 0-40 [facility] Comment on above: Performed By: #### 4 7188, 49020 ####[facility]3000 [facility].[address] MAGNESIUM BLOODon 09-25-2017 Magnesium mass conc 1.8 mg/dL Low 1.9-2.7 The [facility] Comment on above: Performed By: #### 4 0134, 60667 ####[facility]3000 [facility].[address] PHOSPHORUS BLOODon 8 Phosphate mass conc 3.4 mg/dL Normal 2.5-5.0 The [facility] Comment on above: Performed By: #### 4 5900, 16959 ####[facility]3000 [facility].[address] TACROLIMUSon 09-25-2017 Tacrolimus mass conc (Bld) 3.6 ng/mL Low 5.0-20.0 [facility] Comment on above: Result Comment: The [employer] Tacrolimus assay is a delayed one-step immunoassayfor the quantitative determination of tacrolimus in human whole bloodusing the chemiluminescent microparticle immunoassay (CMIA) technologywith flexible assay protocols, referred to as Chemiflex. Performed By: #### 4 6447, 29627 ####[facility] URIC ACID BLOODon 09-25-2017 Urate mass conc 4.7 mg/dL Normal 2.3-6.6 The [facility] Comment on above: Performed By: #### 4 6447, 29265 ####[address] BK VIRUS QUANTITATION PCR BL OODon 08-26-2017 BKV QUANT PCR Not detected Normal The [facility] Comment on above: Result Comment: Meth od: BK virus was measured by quantitative polymerase chain reactionusing a TaqMan probe targeting the polyomavirus BK MERCHANDISE FOR RESALE PURCHASING AGENT-1 gene.The lower limit of quantitation of the assay is 500 copies of BK genomeper milliliter of plasma or urine, and any detectable BK DNA below thatlevel is reported as: Detected, <500 copies/ml. Serial BK virusmeasurement can be used to monitor disease activity. (Reference:Kelsie vaughanl. J CLIN MICRO 2004; 42:6021-7217).This test was developed and its performance characteristics determinedby the [facility]. It has not been approvedby the [place] Food and Drug Administration. However, such approval is notrequired for clinical implementation, and test results have been shownto be clinically useful. This laboratory is CAP accredited and CLIAcertified to perform high complexity testing. Performed By: #### 4 1000, 81656, 18521, 42680, 66242, 35201 ####[place] [address] [address] LOG 10 COPIES Not detected Normal The [facility] Comment on above: Performed By: #### 4 1000, 48444, 74361, 75412, 99162, 07587 ####[facility]3000 [facility].[address] CBC W/DIFFon 08-26-2017 ABS BASOPHILS 0.0 10*3/uL Normal 0.0-0.2 The [facility] Comment on above: Performed By: #### 4 1000, 59992, 69721, 78075, 39248, 90448 ####[facility]3000 [facility].[address] ABS IMM GRANS 0.0 10*3/uL Normal 0.0-0.2 The [facility] Comment on above: Performed By: #### 4 1000, 01348, 75502, 09759, 75559, 41446 ####[facility]3000 [facility].[address] ABS NEUTROPHILS 4.5 10*3/uL Normal 1.6-7.6 The [facility] Comment on above: Performed By: #### 4 1000, 74973, 72191, 38345, 13586, 11025 ####[facility]3000 [facility].[address] Basophils Auto #/vol (Bld) 0.2 % Normal 0.0-1.0 [facility] Comment on above: Performed By: #### 4 1000, 58130, 59685, 26020, 67055, 99493 ####[facility]3000 [facility].[address] Eosinophils Auto #/vol (Bld) 0.2 10*3/uL Normal 0.0-0.5 [facility] Comment on above: Performed By: #### 4 1000, 38891, 27919, 94481, 89130, 78377 ####[facility]3000 [facility].[address] Eosinophils/100 WBC Auto (Bld) 2.4 % Normal 0.0-6.0 [facility] Comment on above: Performed By: #### 4 1000, 39681, 47995, 98235, 60208, 60024 ####[place] [address] [facility].[address] Erythrocyte distribution width Auto Ratio (RBC) 14.0 % Normal 11.5-15.0 [facility] Comment on above: Performed By: #### 4 1000, 18127, 22923, 89034, 06513, 57071 ####[place] [address] [facility].[address] Hematocrit Auto Volume Fraction (Bld) 44.9 % Normal 36.0-45.0 The [facility] Comment on above: Performed By: #### 4 1000, 69359, 24323, 40571, 59528, 00823 ####[place] [address] [facility].[address] Hemoglobin mass conc (Bld) 14.9 g/dL Normal 12.0-15.0 [facility] Comment on above: Performed By: #### 4 1000, 76778, 89581, 92341, 55681, 98273 ####[address] IMMATURE GRANS 0.5 % Normal 0.0-1.0 The [facility] Comment on above: Performed By: #### 4 1000, 37494, 69183, 37821, 90713, 38429 ####[place] [address] [facility].[address] Lymphocytes Auto #/vol (Bld) 1.0 10*3/uL Low 1.2-4.0 [facility] Comment on above: Performed By: #### 4 1000, 53050, 47029, 68445, 50967, 24540 ####[facility]3000 [facility].[address] Lymphocytes/100 WBC Auto (Bld) 15.8 % Low 20.0-45.0 [facility] Comment on above: Performed By: #### 4 1000, 46088, 39251, 91886, 64781, 24512 ####[facility]3000 [facility] MCH Auto Entitic mass (RBC) 29.1 pg Normal 27.0-33.0 [facility] Comment on above: Performed By: #### 4 1000, 54352, 78849, 13168, 38677, 71906 ####[facility]3000 [facility].[address] MCHC Auto mass conc (RBC) 33.2 g/dL Normal 32.0-35.0 [facility] Comment on above: Performed By: #### 4 1000, 34984, 84938, 41877, 22657, 50292 ####[facility]3000 [facility].[address] MCV Auto Entitic volume (RBC) 87.7 fL Normal 82.0-98.0 [facility] Comment on above: Performed By: #### 4 1000, 29017, 27993, 52979, 42643, 76061 ####[facility]3000 [facility].[address] Monocytes Auto #/vol (Bld) 0.7 10*3/uL Normal 0.1-1.0 [facility] Comment on above: Performed By: #### 4 1000, 78371, 73454, 49477, 67357, 42839 ####[facility]3000 [facility].[address] MONOS 10.6 % Normal 5.0-12.0 [facility] Comment on above: Performed By: #### 4 1000, 06270, 33087, 32843, 86067, 66986 ####[facility] Neutrophils/100 WBC Auto (Bld) 70.5 % Normal 40.0-72.0 [facility] Comment on above: Performed By: #### 4 1000, 33856, 94917, 47833, 33715, 41368 ####[facility] Nucleated RBC/100 WBC Ratio (Bld) 0 % Normal 0-0 [facility] Comment on above: Performed By: #### 4 1000, 94506, 73567, 46905, 23856, 78931 ####[facility] PLAT CNT 231 10*3/uL Normal 150-[address] [facility] Comment on above: Performed By: #### 4 1000, 91515, 19918, 66563, 36369, 86448 ####[facility] RBC Auto #/vol (Bld) 5.12 10*6/uL High 3.80-5.00 Th e [facility] Comment on above: Performed By: #### 4 1000, 91343, 34594, 26826, 86356, 55467 ####[facility] WBC Auto #/vol (Bld) 6.32 10*3/uL Normal 4.00-10.60 Th e [facility] Comment on above: Performed By: #### 4 1000, 44604, 30930, 30913, 57734, 42223 ####[facility] COMP METABOLIC PANELon 08-26 Albumin mass conc 4.3 g/dL Normal 3.5-5.7 The [facility] Comment on above: Performed By: #### 4 1000, 48594, 61686, 99123, 73080, 50723 ####[facility] [place] [address], [facility] ALKALINE PHOSPH 125 IU/L High 34-104 The [facility] Comment on above: Performed By: #### 4 1000, 91411, 03909, 82030, 26049, 07268 ####[facility] [place] [address], [facility] ALT enzyme act/vol 17 U/L Normal 7-52 The [facility] Comment on above: Performed By: #### 4 1000, 08196, 22505, 24534, 22734, 22911 ####[facility] [place] [address], [facility] AST enzyme act/vol 23 U/L Normal 13-39 The [facility] Comment on above: Performed By: #### 4 1000, 06287, 87907, 37363, 36011, 59528 ####[facility] [place] [address], [facility] Bilirubin mass conc 0.4 mg/dL Normal 0.3-1.0 The [facility] Comment on above: Performed By: #### 4 1000, 35862, 50087, 13022, 75589, 10150 ####[facility] [place] [address], [facility] Calcium mass conc 9.6 mg/dL Normal 8.6-10.3 The [facility] Comment on above: Performed By: #### 4 1000, 91895, 21672, 36253, 35308, 37264 ####[facility] [place] [address], [facility] Chloride molar conc 104 mmol/L Normal 98-107 The [facility] Comment on above: Performed By: #### 4 1000, 66671, 29158, 18161, 15146, 25332 ####[facility] [place] [address], [facility] CO2 molar conc 27 mmol/L Normal 21-31 The [facility] Comment on above: Performed By: #### 4 1000, 40760, 46317, 78909, 22924, 22839 ####[facility] [place] [address], [facility] Creatinine mass conc 0.77 mg/dL Normal 0.60-1.20 [facility] Comment on above: Performed By: #### 4 1000, 59259, 35250, 46188, 78259, 88247 ####[facility] [place] [address], [facility] GFR/1.73 sq M predicted among blacks MDRD vol rate/area (S/P/Bld) mL/min/{1.73_m2} Normal >60 The [facility] Comment on above: Performed By: #### 4 1000, 30385, 13309, 81769, 83760, 14284 ####[facility]3000 [facility] [address], [facility] GFR/1.73 sq M predicted among non-blacks MDRD vol rate/area (S/P/Bld) mL/min/{1.73_m2} Normal >60 The [facility] Comment on above: Performed By: #### 4 1000, 35381, 85388, 80718, 48962, 74731 ####[facility] [place] [address], [facility] Glucose mass conc 95 mg/dL Normal 70-100 [facility] Comment on above: Performed By: #### 4 1000, 24660, 06447, 94039, 29689, 37496 ####[facility] Potassium molar conc 4.1 mmol/L Normal 3.5-5.1 The [facility] Comment on above: Performed By: #### 4 1000, 47414, 22215, 25116, 82337, 51414 ####[facility] Protein mass conc 7.3 g/dL Normal 6.0-8.3 The [facility] Comment on above: Performed By: #### 4 1000, 97298, 67716, 24259, 97856, 66177 ####[facility] Sodium molar conc 139 mmol/L Normal 136-145 [facility] Comment on above: Performed By: #### 4 1000, 68667, 18174, 31864, 61899, 06482 ####[facility] Urea nitrogen mass conc 12 mg/dL Normal 7-25 [facility] Comment on above: Performed By: #### 4 1000, 64046, 63778, 31949, 97203, 95591 ####[facility] DIRECT BILIon 08-26-2017 Bilirubin.direct mass conc 0.1 mg/dL Normal 0.0-0.2 The [facility] Comment on above: Performed By: #### 4 1000, 99008, 89713, 57715, 42275, 43660 ####[facility] EVEROLIMUS [id number] 8 EVEROLIMUS 5.6 ng/mL Normal The [facility] Comment on above: Result Comment: Ther [...] the transplantcenter.Test developed and characteristics determined by [facility]. See Compliance Statement B: [email or web address] by [employer],[address] [place] [id number] [email or web address] Antonio MD - Lab. Director HEMOGLOBIN A1Con 08-26-2017 Glucose mass conc 114 mg/dL Normal 70-126 [facility] Comment on above: Performed By: #### 4 1000, 08659, 44711, 87956, 25635, 22981 ####[facility]3000 [facility].[address] Hemoglobin A1c/Hemoglobin.total mass fraction (Bld) 5.6 % Normal 4.0-6.0 The [facility] Comment on above: Performed By: #### 4 1000, 92593, 51293, 74051, 94013, 15425 ####[facility]3000 [facility].[address] LIPID PROFILEon 08-26-2017 Cholesterol in HDL mass conc 49 mg/dL Normal 23-92 [facility] Comment on above: Result Comment: Slig ht variation in normal range could be due to gender and/or age.HDL CHOLESTEROL REFERENCE RANGE:20 years and older Cardiovascular Risk> or =60 mg/dL Aybhsrwvd41 TO 59 mg/dL Low Risk<40 mg/dL High Risk Performed By: #### 4 1000, 14481, 81655, 38477, 67555, 47568 ####[facility] [facility] [address], [facility] Cholesterol in LDL mass conc 76 mg/dL Normal 0-130 [facility] Comment on above: Result Comment: LDL IS A CALCULATIONLDL IS ONLY VALID IF THE TRIG IS LESS THAN 400. Performed By: #### 4 1000, 26392, 32582, 78922, 58914, 01797 ####[facility]3000 [facility] [place] [address], [facility] Cholesterol mass conc 152 mg/dL Normal 120-200 [facility] Comment on above: Result Comment: CHOL ESTEROL REFERENCE RANGE:20 YEARS AND OLDER CARDIOVASCULAR RISKLess than 200 mg/dl Low Tfnr122 to 239 mg/dl Borderline Tpkc998 mg/dl and greater High Risk Performed By: #### 4 1000, 57680, 49626, 26805, 80135, 02934 ####[facility]3000 [facility] [place] [address], [facility] Cholesterol.total/Cho lesterol in HDL mass ratio 3.1 {ratio} Normal .0-4.5 [facility] Comment on above: Performed By: #### 4 1000, 93343, 89833, 73754, 11116, 61726 ####[facility]3000 [facility] [place] [address], [facility] NON-HDL CHOLESTEROL 103 mg/dL Normal [facility] Comment on above: Performed By: #### 4 1000, 10931, 99828, 24375, 46875, 32696 ####[facility]3000 [facility] [address], [facility] Triglyceride mass conc 133 mg/dL Normal 40-149 [facility] Comment on above: Result Comment: TRIG LYCERIDE REFERENCE RANGE:20 YEARS AND OLDER CARDIOVASCULAR RISKLESS THAN 150 mg/dl LOW [id number] TO 199 mg/dl BORDERLINE HYGW099 mg/dl AND GREATER HIGH RISK Performed By: #### 4 1000, 70135, 14563, 77197, 78330, 64899 ####[facility] VLDL CHOL 27 mg/dL Normal 0-40 [facility] Comment on above: Performed By: #### 4 1000, 17742, 36603, 82064, 01879, 34784 ####[facility]3000 [facility].[address] MAGNESIUM BLOODon 08-26-2017 Magnesium mass conc 1.9 mg/dL Normal 1.9-2.7 The [facility] Comment on above: Performed By: #### 4 1000, 37151, 80847, 68289, 78892, 70253 ####[facility]3000 [facility].[address] PHOSPHORUS BLOODon 8 Phosphate mass conc 3.4 mg/dL Normal 2.5-5.0 The [facility] Comment on above: Performed By: #### 4 1000, 00220, 65885, 10599, 60296, 75720 ####[facility]3000 [facility].[address] TACROLIMUSon 08-26-2017 Tacrolimus mass conc (Bld) 4.3 ng/mL Low 5.0-20.0 [facility] Comment on above: Result Comment: The [employer] Tacrolimus assay is a delayed one-step immunoassayfor the quantitative determination of tacrolimus in human whole bloodusing the chemiluminescent microparticle immunoassay (CMIA) technologywith flexible assay protocols, referred to as Chemiflex. Performed By: #### 4 1000, 05559, 61637, 38084, 02654, 19545 ####[facility]3000 [facility].[address] URIC ACID BLOODon 08-26-2017 Urate mass conc 4.6 mg/dL Normal 2.3-6.6 The [facility] Comment on above: Performed By: #### 4 1000, 29930, 44220, 81450, 23521, 59257 ####[facility]3000 [facility].[address] CBC W/DIFFon 07-23-2017 ABS BASOPHILS 0.0 10*3/uL Normal 0.0-0.2 The [facility] Comment on above: Performed By: #### 4 1000, 48226, 81410, 19342, 63555, 15898 ####[facility]3000 [facility].[address] ABS IMM GRANS 0.0 10*3/uL Normal 0.0-0.2 The [facility] Comment on above: Performed By: #### 4 1000, 17685, 36698, 04693, 22141, 44956 ####[facility]3000 [facility].[address] ABS NEUTROPHILS 4.4 10*3/uL Normal 1.6-7.6 The [facility] Comment on above: Performed By: #### 4 1000, 07946, 65407, 19044, 26927, 60217 ####[facility]3000 [facility].[address] Basophils Auto #/vol (Bld) 0.2 % Normal 0.0-1.0 The [facility] Comment on above: Performed By: #### 4 1000, 79352, 56183, 33042, 24772, 31718 ####[facility]3000 [facility].[address] Eosinophils Auto #/vol (Bld) 0.1 10*3/uL Normal 0.0-0.5 [facility] Comment on above: Performed By: #### 4 1000, 33607, 70868, 22480, 85296, 84220 ####[facility]3000 [facility].[address] Eosinophils/100 WBC Auto (Bld) 2.1 % Normal 0.0-6.0 [facility] Comment on above: Performed By: #### 4 1000, 99565, 40391, 20788, 91550, 15094 ####[facility] Erythrocyte distribution width Auto Ratio (RBC) 13.7 % Normal 11.5-15.0 [facility] Comment on above: Performed By: #### 4 1000, 92838, 42765, 19729, 49027, 15562 ####[facility] Hematocrit Auto Volume Fraction (Bld) 44.4 % Normal 36.0-45.0 The [facility] Comment on above: Performed By: #### 4 1000, 08189, 90564, 49814, 84590, 24056 ####[facility] Hemoglobin mass conc (Bld) 14.7 g/dL Normal 12.0-15.0 [facility] Comment on above: Performed By: #### 4 1000, 10060, 85550, 18219, 05830, 17707 ####[facility] IMMATURE GRANS 0.5 % Normal 0.0-1.0 The [facility] Comment on above: Performed By: #### 4 1000, 45272, 96471, 40920, 28858, 97074 ####[facility] Lymphocytes Auto #/vol (Bld) 1.0 10*3/uL Low 1.2-4.0 [facility] Comment on above: Performed By: #### 4 1000, 19883, 03888, 15317, 51510, 41138 ####[facility]3000 [facility].[address] Lymphocytes/100 WBC Auto (Bld) 15.5 % Low 20.0-45.0 The [facility] Comment on above: Performed By: #### 4 1000, 28412, 58908, 26217, 09797, 11495 ####[address] MCH Auto Entitic mass (RBC) 28.9 pg Normal 27.0-33.0 The [facility] Comment on above: Performed By: #### 4 1000, 86988, 56968, 87728, 73713, 41391 ####[address] MCHC Auto mass conc (RBC) 33.1 g/dL Normal 32.0-35.0 [facility] Comment on above: Performed By: #### 4 1000, 32064, 90870, 42920, 28106, 19142 ####[place] [address] [facility].[address] MCV Auto Entitic volume (RBC) 87.4 fL Normal 82.0-98.0 [facility] Comment on above: Performed By: #### 4 1000, 69957, 26350, 95806, 54442, 91127 ####[place] [address] [facility].[address] Monocytes Auto #/vol (Bld) 0.8 10*3/uL Normal 0.1-1.0 The [facility] Comment on above: Performed By: #### 4 1000, 42943, 78623, 91629, 82703, 62941 ####[facility]3000 [facility].[address] MONOS 12.3 % High 5.0-12.0 [facility] Comment on above: Performed By: #### 4 1000, 75048, 30901, 30507, 46814, 80566 ####[facility]3000 [facility] [place] [address], [facility] Neutrophils/100 WBC Auto (Bld) 69.4 % Normal 40.0-72.0 The [facility] Comment on above: Performed By: #### 4 1000, 96606, 73968, 00854, 24186, 26317 ####[facility]3000 [facility] Nucleated RBC/100 WBC Ratio (Bld) 0 % Normal 0-0 [facility] Comment on above: Performed By: #### 4 1000, 99522, 85019, 39586, 90904, 14121 ####[facility]3000 [facility].[address] PLAT CNT 218 10*3/uL Normal 150-[address] [facility] Comment on above: Performed By: #### 4 1000, 19052, 08910, 19844, 58797, 20710 ####[facility]3000 [facility].[address] RBC Auto #/vol (Bld) 5.08 10*6/uL High 3.80-5.00 Th [facility] Comment on above: Performed By: #### 4 1000, 39060, 39710, 42162, 76442, 52235 ####[facility]3000 [facility] WBC Auto #/vol (Bld) 6.3 10*3/uL Normal 4.0-10.6 [facility] Comment on above: Performed By: #### 4 1000, 11477, 02289, 09953, 58136, 18351 ####[facility]3000 [facility].[address] COMP METABOLIC PANELon 07-23 Albumin mass conc 4.2 g/dL Normal 3.5-5.7 [facility] Comment on above: Performed By: #### 4 1000, 16137, 87485, 18775, 33545, 00705 ####[facility] [place] [address], [facility] ALKALINE PHOSPH 113 IU/L High 34-104 The [facility] Comment on above: Performed By: #### 4 1000, 63402, 05446, 02206, 81553, 08470 ####[facility] ALT enzyme act/vol 23 U/L Normal 7-52 The [facility] Comment on above: Performed By: #### 4 1000, 22526, 19136, 87434, 46047, 61812 ####[facility] AST enzyme act/vol 25 U/L Normal 13-39 The [facility] Comment on above: Performed By: #### 4 1000, 71188, 78456, 90818, 92862, 09253 ####[facility] [place] [address], [facility] Bilirubin mass conc 0.6 mg/dL Normal 0.3-1.0 The [facility] Comment on above: Performed By: #### 4 1000, 74211, 92493, 86141, 77564, 56232 ####[facility] [place] [address], [facility] Calcium mass conc 9.6 mg/dL Normal 8.6-10.3 The [facility] Comment on above: Performed By: #### 4 1000, 19689, 03100, 89251, 78389, 53533 ####[facility] [place] [address], [facility] Chloride molar conc 104 mmol/L Normal 98-107 The [facility] Comment on above: Performed By: #### 4 1000, 86280, 66387, 85139, 58872, 36389 ####[facility] [place] [address], [facility] CO2 molar conc 25 mmol/L Normal 21-31 [facility] Comment on above: Performed By: #### 4 1000, 50817, 01057, 79316, 49340, 74296 ####[facility] [place] [address], [facility] Creatinine mass conc 0.80 mg/dL Normal 0.60-1.20 [facility] Comment on above: Performed By: #### 4 1000, 56659, 00675, 01234, 24781, 52037 ####[facility] [place] [address], [facility] GFR/1.73 sq M predicted among blacks MDRD vol rate/area (S/P/Bld) mL/min/{1.73_m2} Normal >60 [facility] Comment on above: Performed By: #### 4 1000, 51489, 53606, 25302, 63054, 18055 ####[facility] [place] [address], [facility] GFR/1.73 sq M predicted among non-blacks MDRD vol rate/area (S/P/Bld) mL/min/{1.73_m2} Normal >60 [facility] Comment on above: Performed By: #### 4 1000, 75929, 61894, 13150, 74764, 18991 ####[facility] [place] [address], [place] Glucose mass conc 91 mg/dL Normal 70-100 [facility] Comment on above: Performed By: #### 4 1000, 47136, 65106, 12473, 74282, 55092 ####[facility] [place] [address], [place] Potassium molar conc 4.0 mmol/L Normal 3.5-5.1 [facility] Comment on above: Performed By: #### 4 1000, 87275, 40866, 74672, 08233, 80707 ####[facility] Protein mass conc 6.8 g/dL Normal 6.0-8.3 [facility] Comment on above: Performed By: #### 4 1000, 30159, 37200, 05195, 60252, 46590 ####[facility] Sodium molar conc 140 mmol/L Normal 136-145 [facility] Comment on above: Performed By: #### 4 1000, 06259, 50067, 17581, 55014, 33472 ####[facility] Urea nitrogen mass conc 16 mg/dL Normal 7-25 [facility] Comment on above: Performed By: #### 4 1000, 14539, 79042, 75461, 54889, 23880 ####[facility] DIRECT BILIon 07-23-2017 Bilirubin.direct mass conc 0.2 mg/dL Normal 0.0-0.2 [facility] Comment on above: Performed By: #### 4 1000, 58780, 99099, 07407, 89476, 74059 ####[facility] EVEROLIMUS 03839os 8 EVEROLIMUS 5.3 ng/mL Normal The [facility] Comment on above: Result Comment: Ther [...] the transplantcenter.Test developed and characteristics determined by [employer]. See Compliance Statement B: [email or web address] by [employer],[address] [place] [id number] [email or web address], Leonid Antonio MD - Lab. Director LIPID PROFILEon 07-23-2017 Cholesterol in HDL mass conc 45 mg/dL Normal 23-92 [facility] Comment on above: Result Comment: Slig ht variation in normal range could be due to gender and/or age.HDL CHOLESTEROL REFERENCE RANGE:20 years and older Cardiovascular Risk> or =60 mg/dL Kuscqbygs18 TO 59 mg/dL Low Risk<40 mg/dL High Risk Performed By: #### 4 1000, 63115, 84159, 50318, 55286, 61221 ####[facility]3000 [facility].[address] Cholesterol in LDL mass conc 79 mg/dL Normal 0-130 [facility] Comment on above: Result Comment: LDL IS A CALCULATIONLDL IS ONLY VALID IF THE TRIG IS LESS THAN 400. Performed By: #### 4 1000, 93199, 67374, 72084, 26174, 90819 ####[facility] [place] [address], [facility] Cholesterol mass conc 141 mg/dL Normal 120-200 [facility] Comment on above: Result Comment: CHOL ESTEROL REFERENCE RANGE:20 YEARS AND OLDER CARDIOVASCULAR RISKLess than 200 mg/dl Low Qhxe667 to 239 mg/dl Borderline Gcwz518 mg/dl and greater High Risk Performed By: #### 4 1000, 74037, 06990, 46264, 56227, 53588 ####[facility] Cholesterol.total/Cho lesterol in HDL mass ratio 3.1 {ratio} Normal .0-4.5 [facility] Comment on above: Performed By: #### 4 1000, 87199, 83066, 07346, 96862, 46525 ####[facility]3000 [facility].[address] NON-HDL CHOLESTEROL 96 mg/dL Normal The [facility] Comment on above: Performed By: #### 4 1000, 93956, 33158, 49830, 93810, 70599 ####[facility]3000 [facility].[address] Triglyceride mass conc 83 mg/dL Normal 40-149 [facility] Comment on above: Result Comment: TRIG LYCERIDE REFERENCE RANGE:20 YEARS AND OLDER CARDIOVASCULAR RISKLESS THAN 150 mg/dl LOW [id number] TO 199 mg/dl BORDERLINE TSCM452 mg/dl AND GREATER HIGH RISK Performed By: #### 4 1000, 97225, 36035, 69294, 96266, 32542 ####[facility]3000 [facility].[address] VLDL CHOL 17 mg/dL Normal 0-40 [facility] Comment on above: Performed By: #### 4 1000, 21479, 97315, 15916, 90781, 70900 ####[facility]3000 [facility].[address] MAGNESIUM BLOODon 07-23-2017 Magnesium mass conc 2.0 mg/dL Normal 1.9-2.7 The [facility] Comment on above: Performed By: #### 4 1000, 79660, 67273, 03789, 27544, 23669 ####[facility]3000 [facility].[address] PHOSPHORUS BLOODon 8 Phosphate mass conc 4.0 mg/dL Normal 2.5-5.0 [facility] Comment on above: Performed By: #### 4 1000, 19684, 14488, 08736, 14868, 89223 ####[facility]3000 [facility].[address] TACROLIMUSon 07-23-2017 Tacrolimus mass conc (Bld) 4.6 ng/mL Low 5.0-20.0 The [facility] Comment on above: Result Comment: The [employer] WINDOW/DISTRIBUTION CLERK Tacrolimus assay is a delayed one-step immunoassayfor the quantitative determination of tacrolimus in human whole bloodusing the chemiluminescent microparticle immunoassay (CMIA) technologywith flexible assay protocols, referred to as Chemiflex. Performed By: #### 4 1000, 61084, 00830, 31250, 83529, 70316 ####[facility] URIC ACID BLOODon 07-23-2017 Urate mass conc 4.7 mg/dL Normal 2.3-6.6 The [facility] Comment on above: Performed By: #### 4 1000, 04456, 77989, 79621, 91514, 20934 ####[facility]3000 [facility].[address] CBC W/DIFFon 06-20-2017 ABS BASOPHILS 0.0 10*3/uL Normal 0.0-0.2 The [facility] Comment on above: Performed By: #### 4 1000, 62833, 04156, 15169, 56606, 50196 ####[facility] ABS IMM GRANS 0.0 10*3/uL Normal 0.0-0.2 The [facility] Comment on above: Performed By: #### 4 1000, 92162, 04063, 91571, 96416, 84932 ####[facility] ABS NEUTROPHILS 4.2 10*3/uL Normal 1.6-7.6 The [facility] Comment on above: Performed By: #### 4 1000, 70577, 75953, 62071, 21562, 40758 ####[facility] Basophils Auto #/vol (Bld) 0.2 % Normal 0.0-1.0 The [facility] Comment on above: Performed By: #### 4 1000, 17453, 12144, 93219, 60672, 75158 ####[facility] Eosinophils Auto #/vol (Bld) 0.1 10*3/uL Normal 0.0-0.5 [facility] Comment on above: Performed By: #### 4 1000, 23366, 61716, 73260, 56388, 04082 ####[facility] Eosinophils/100 WBC Auto (Bld) 1.5 % Normal 0.0-6.0 [facility] Comment on above: Performed By: #### 4 1000, 10662, 17103, 82820, 14921, 08996 ####[facility] Erythrocyte distribution width Auto Ratio (RBC) 13.4 % Normal 11.5-15.0 [facility] Comment on above: Performed By: #### 4 1000, 18557, 76727, 51707, 87807, 03222 ####[facility] Hematocrit Auto Volume Fraction (Bld) 44.9 % Normal 36.0-45.0 The [facility] Comment on above: Performed By: #### 4 1000, 87380, 68891, 66105, 47675, 63463 ####[facility]3000 [facility].[address] Hemoglobin mass conc (Bld) 14.9 g/dL Normal 12.0-15.0 [facility] Comment on above: Performed By: #### 4 1000, 97824, 91751, 40493, 44848, 39470 ####[facility]3000 [facility].[address] IMMATURE GRANS 0.2 % Normal 0.0-1.0 The [facility] Comment on above: Performed By: #### 4 1000, 35391, 41061, 54146, 44796, 75655 ####[place] [address] [facility].[address] Lymphocytes Auto #/vol (Bld) 1.1 10*3/uL Low 1.2-4.0 The [facility] Comment on above: Performed By: #### 4 1000, 86438, 40214, 63239, 60521, 73307 ####[facility]3000 [facility].[address] Lymphocytes/100 WBC Auto (Bld) 17.4 % Low 20.0-45.0 The [facility] Comment on above: Performed By: #### 4 1000, 43972, 80256, 61902, 76117, 44454 ####[facility]3000 [facility].[address] MCH Auto Entitic mass (RBC) 29.2 pg Normal 27.0-33.0 The [facility] Comment on above: Performed By: #### 4 1000, 52876, 27634, 09605, 36889, 50860 ####[facility]3000 [facility].[address] MCHC Auto mass conc (RBC) 33.2 g/dL Normal 32.0-35.0 The [facility] Comment on above: Performed By: #### 4 1000, 49921, 55094, 34867, 01059, 29110 ####[facility] MCV Auto Entitic volume (RBC) 87.9 fL Normal 82.0-98.0 [facility] Comment on above: Performed By: #### 4 1000, 17938, 09366, 95308, 08730, 68943 ####[facility] Monocytes Auto #/vol (Bld) 0.7 10*3/uL Normal 0.1-1.0 The [facility] Comment on above: Performed By: #### 4 1000, 32832, 43331, 66135, 15267, 31497 ####[facility] MONOS 11.3 % Normal 5.0-12.0 The [facility] Comment on above: Performed By: #### 4 1000, 56935, 67650, 86181, 58029, 88332 ####[facility] Neutrophils/100 WBC Auto (Bld) 69.4 % Normal 40.0-72.0 [facility] Comment on above: Performed By: #### 4 1000, 79192, 83900, 39270, 26072, 96621 ####[facility] Nucleated RBC/100 WBC Ratio (Bld) 0 % Normal 0-0 [facility] Comment on above: Performed By: #### 4 1000, 68070, 42219, 16568, 28003, 05724 ####[facility] PLAT CNT 198 10*3/uL Normal 150-[address] [facility] Comment on above: Performed By: #### 4 1000, 04907, 47097, 37776, 60576, 36733 ####[facility] RBC Auto #/vol (Bld) 5.11 10*6/uL High 3.80-5.00 Th [facility] Comment on above: Performed By: #### 4 1000, 64442, 43737, 06328, 43150, 23480 ####[facility] WBC Auto #/vol (Bld) 6.0 10*3/uL Normal 4.0-10.6 [facility] Comment on above: Performed By: #### 4 1000, 69504, 13563, 30161, 44884, 24270 ####[facility] COMP METABOLIC PANELon 06-20 Albumin mass conc 4.4 g/dL Normal 3.5-5.7 The [facility] Comment on above: Performed By: #### 4 1000, 17790, 69297, 97831, 30996, 88506 ####[facility] ALKALINE PHOSPH 133 IU/L High 34-104 [facility] Comment on above: Performed By: #### 4 1000, 27347, 41425, 33250, 82824, 40650 ####[facility] ALT enzyme act/vol 16 U/L Normal 7-52 The [facility] Comment on above: Performed By: #### 4 1000, 45244, 75855, 58665, 70561, 30525 ####[facility] [place] [address], [facility] AST enzyme act/vol 21 U/L Normal 13-39 The [facility] Comment on above: Performed By: #### 4 1000, 51677, 50025, 59028, 91363, 24127 ####[facility] [place] [address], [place] Bilirubin mass conc 0.8 mg/dL Normal 0.3-1.0 The [facility] Comment on above: Performed By: #### 4 1000, 10306, 79237, 71675, 54046, 30888 ####[facility] [place] [address], [facility] Calcium mass conc 10.0 mg/dL Normal 8.6-10.3 The [facility] Comment on above: Performed By: #### 4 1000, 53733, 74664, 89270, 56596, 10537 ####[facility] [place] [address], [place] Chloride molar conc 106 mmol/L Normal 98-107 The [facility] Comment on above: Performed By: #### 4 1000, 81246, 29149, 89754, 98368, 14537 ####[facility] [place] [address], [place] CO2 molar conc 27 mmol/L Normal 21-31 The [facility] Comment on above: Performed By: #### 4 1000, 88429, 12284, 86729, 93458, 79902 ####[facility] [place] [address], [place] Creatinine mass conc 0.74 mg/dL Normal 0.60-1.20 The [facility] Comment on above: Performed By: #### 4 1000, 89489, 71574, 48366, 61972, 80369 ####[facility] [place] [address], [facility] GFR/1.73 sq M predicted among blacks MDRD vol rate/area (S/P/Bld) mL/min/{1.73_m2} Normal >60 The [facility] Comment on above: Performed By: #### 4 1000, 86327, 92102, 46992, 92998, 88094 ####[facility] [place] [address], [facility] GFR/1.73 sq M predicted among non-blacks MDRD vol rate/area (S/P/Bld) mL/min/{1.73_m2} Normal >60 [facility] Comment on above: Performed By: #### 4 1000, 43349, 76084, 88239, 21646, 85159 ####[facility] [place] [address], [facility] Glucose mass conc 95 mg/dL Normal 70-100 The [facility] Comment on above: Performed By: #### 4 1000, 13321, 33435, 99397, 44813, 93140 ####[facility] [place] [address], [facility] Potassium molar conc 3.8 mmol/L Normal 3.5-5.1 The [facility] Comment on above: Performed By: #### 4 1000, 74068, 86925, 08386, 60368, 45735 ####[facility] [place] [address], [facility] Protein mass conc 7.3 g/dL Normal 6.0-8.3 The [facility] Comment on above: Performed By: #### 4 1000, 83264, 97226, 55789, 31861, 46128 ####[facility] [place] [address], [facility] Sodium molar conc 137 mmol/L Normal 136-145 The [facility] Comment on above: Performed By: #### 4 1000, 89828, 29579, 90615, 15026, 22304 ####[facility] [place] [address], [facility] Urea nitrogen mass conc 16 mg/dL Normal 7-25 [facility] Comment on above: Performed By: #### 4 1000, 01981, 16179, 40345, 90488, 58580 ####[facility] DIRECT BILIon 06-20-2017 Bilirubin.direct mass conc 0.1 mg/dL Normal 0.0-0.2 The [facility] Comment on above: Performed By: #### 4 1000, 83943, 97518, 97937, 48821, 74252 ####[facility] EVEROLIMUS 82025xf 8 EVEROLIMUS 6.7 ng/mL Normal The [facility] Comment on above: Result Comment: Ther [...] the transplantcenter.Test developed and characteristics determined by [employer]. See Compliance Statement B: [email or web address] by [employer],[address] [place] [address] [email or web address], Leonid Antonio MD - Lab. Director LIPID PROFILEon 06-20-2017 Cholesterol in HDL mass conc 45 mg/dL Normal 23-92 [facility] Comment on above: Result Comment: Slig ht variation in normal range could be due to gender and/or age.HDL CHOLESTEROL REFERENCE RANGE:20 years and older Cardiovascular Risk> or =60 mg/dL Aqfjzmouv26 TO 59 mg/dL Low Risk<40 mg/dL High Risk Performed By: #### 4 1000, 47473, 22940, 59015, 69307, 89772 ####[facility] [place] [address], [place] Cholesterol in LDL mass conc 58 mg/dL Normal 0-130 [facility] Comment on above: Result Comment: LDL IS A CALCULATIONLDL IS ONLY VALID IF THE TRIG IS LESS THAN 400. Performed By: #### 4 1000, 18930, 08150, 86695, 76140, 02684 ####[facility] [place] [address], [place] Cholesterol mass conc 126 mg/dL Normal 120-200 [facility] Comment on above: Result Comment: CHOL ESTEROL REFERENCE RANGE:20 YEARS AND OLDER CARDIOVASCULAR RISKLess than 200 mg/dl Low Bqxj244 to 239 mg/dl Borderline Uuqs944 mg/dl and greater High Risk Performed By: #### 4 1000, 95837, 98730, 91629, 39797, 82897 ####[facility] [place] [address], [place] Cholesterol.total/Cho lesterol in HDL mass ratio 2.8 {ratio} Normal .0-4.5 [facility] Comment on above: Performed By: #### 4 1000, 60636, 69992, 61931, 07729, 25913 ####[facility] [place] [address], [place] NON-HDL CHOLESTEROL 81 mg/dL Normal [facility] Comment on above: Performed By: #### 4 1000, 34697, 85555, 64234, 22976, 46513 ####[facility] Triglyceride mass conc 113 mg/dL Normal 40-149 [facility] Comment on above: Result Comment: TRIG LYCERIDE REFERENCE RANGE:20 YEARS AND OLDER CARDIOVASCULAR RISKLESS THAN 150 mg/dl LOW [id number] TO 199 mg/dl BORDERLINE [id number] mg/dl AND GREATER HIGH RISK Performed By: #### 4 1000, 76002, 52340, 91568, 05628, 75358 ####[facility]3000 [facility] VLDL CHOL 23 mg/dL Normal 0-40 [facility] Comment on above: Performed By: #### 4 1000, 55409, 34155, 20825, 25507, 31212 ####[facility]3000 [facility] MAGNESIUM BLOODon 06-20-2017 Magnesium mass conc 1.9 mg/dL Normal 1.9-2.7 The [facility] Comment on above: Performed By: #### 4 1000, 63692, 33135, 96140, 28419, 97195 ####[facility]3000 [facility].[address] PHOSPHORUS BLOODon 8 Phosphate mass conc 3.1 mg/dL Normal 2.5-5.0 The [facility] Comment on above: Performed By: #### 4 1000, 01608, 99186, 44102, 56181, 51630 ####[facility]3000 [facility].[address] TACROLIMUSon 06-20-2017 Tacrolimus mass conc (Bld) 4.2 ng/mL Low 5.0-20.0 The [facility] Comment on above: Result Comment: The [employer]DISTRIBUTION CL[employer] Tacrolimus assay is a delayed one-step immunoassayfor the quantitative determination of tacrolimus in human whole bloodusing the chemiluminescent microparticle immunoassay (CMIA) technologywith flexible assay protocols, referred to as Chemiflex. Performed By: #### 4 1000, 53358, 10223, 61911, 88900, 05234 ####[facility]3000 [facility] [place] [place] [address], [facility] [facility] URIC ACID BLOODon 06-20-2017 Urate mass conc 4.3 mg/dL Normal 2.3-6.6 [facility] Comment on above: Performed By: #### 4 1000, 52907, 78183, 18856, 46923, 88583 ####[facility] [facility].[address] BK VIRUS QUANTITATION PCR BL OODon 05-27-2017 BKV QUANT PCR Not detected Normal [facility] Comment on above: Result Comment: Meth od: BK virus was measured by quantitative polymerase chain reactionusing a TaqMan probe targeting the polyomavirus BK MERCHANDISE FOR RESALE PURCHASING AGENT-1 gene.The lower limit of quantitation of the assay is 500 copies of BK genomeper milliliter of plasma or urine, and any detectable BK DNA below thatlevel is reported as: Detected, <500 copies/ml. Serial BK virusmeasurement can be used to monitor disease activity. (Reference:Kelsie vaughanl. J CLIN MICRO 2004; 42:8031-3094).This test was developed and its performance characteristics determinedby the [facility] Molecular Diagnostics Laboratory. It has not been approvedby the [place] Food and Drug Administration. However, such approval is notrequired for clinical implementation, and test results have been shownto be clinically useful. This laboratory is CAP accredited and CLIAcertified to perform high complexity testing. Performed By: #### 4 1000, 90772, 39948, 51795, 71201, 78415 ####[facility] [facility] [place] [address], [facility] LOG 10 COPIES Not detected Normal [facility] Comment on above: Performed By: #### 4 1000, 25927, 87112, 61613, 47254, 70255 ####[facility] [facility].[address] CBC W/DIFFon 05-27-2017 ABS BASOPHILS 0.0 10*3/uL Normal 0.0-0.2 The [facility] Comment on above: Performed By: #### 4 1000, 75282, 45281, 47374, 34736, 21500 ####[facility] [facility].[address] ABS IMM GRANS 0.0 10*3/uL Normal 0.0-0.2 [facility] Comment on above: Performed By: #### 4 1000, 63195, 95378, 23191, 18892, 60178 ####[facility] [facility].[address] ABS NEUTROPHILS 4.8 10*3/uL Normal 1.6-7.6 The [facility] Comment on above: Performed By: #### 4 1000, 78447, 25306, 45882, 88670, 95198 ####[facility] [facility].[address] Basophils Auto #/vol (Bld) 0.0 % Normal 0.0-1.0 [facility] Comment on above: Performed By: #### 4 1000, 56650, 77322, 80753, 13366, 73139 ####[facility] [facility].[address] Eosinophils Auto #/vol (Bld) 0.1 10*3/uL Normal 0.0-0.5 [facility] Comment on above: Performed By: #### 4 1000, 17737, 44063, 32753, 19785, 89947 ####[facility] [facility].[address] Eosinophils/100 WBC Auto (Bld) 1.1 % Normal 0.0-6.0 [facility] Comment on above: Performed By: #### 4 1000, 30120, 80886, 13600, 58860, 08448 ####[facility] [facility].[address] Erythrocyte distribution width Auto Ratio (RBC) 13.5 % Normal 11.5-15.0 [facility] Comment on above: Performed By: #### 4 1000, 68245, 71741, 33964, 68678, 65243 ####[facility] [facility].[address] Hematocrit Auto Volume Fraction (Bld) 46.1 % High 36.0-45.0 [facility] Comment on above: Performed By: #### 4 1000, 43835, 70860, 53052, 09633, 73521 ####[facility] [facility].[address] Hemoglobin mass conc (Bld) 15.0 g/dL Normal 12.0-15.0 [facility] Comment on above: Performed By: #### 4 1000, 53185, 67534, 12622, 46299, 09526 ####[facility] [facility].[address] IMMATURE GRANS 0.3 % Normal 0.0-1.0 [facility] Comment on above: Performed By: #### 4 1000, 05780, 60672, 47875, 79704, 88786 ####[facility] [facility].[address] Lymphocytes Auto #/vol (Bld) 1.0 10*3/uL Low 1.2-4.0 [facility] Comment on above: Performed By: #### 4 1000, 89167, 45455, 44674, 47162, 80072 ####[facility] Lymphocytes/100 WBC Auto (Bld) 15.7 % Low 20.0-45.0 [facility] Comment on above: Performed By: #### 4 1000, 53679, 62933, 60008, 85060, 63525 ####[facility] MCH Auto Entitic mass (RBC) 28.8 pg Normal 27.0-33.0 [facility] Comment on above: Performed By: #### 4 1000, 48562, 33938, 09997, 11373, 06027 ####[facility] MCHC Auto mass conc (RBC) 32.5 g/dL Normal 32.0-35.0 [facility] Comment on above: Performed By: #### 4 1000, 47730, 71724, 75671, 25831, 94079 ####[facility] MCV Auto Entitic volume (RBC) 88.7 fL Normal 82.0-98.0 [facility] Comment on above: Performed By: #### 4 1000, 82934, 02346, 97268, 57263, 43001 ####[facility] Monocytes Auto #/vol (Bld) 0.8 10*3/uL Normal 0.1-1.0 [facility] Comment on above: Performed By: #### 4 1000, 63480, 52695, 60438, 07320, 13320 ####[facility] MONOS 11.4 % Normal 5.0-12.0 [facility] Comment on above: Performed By: #### 4 1000, 55635, 35425, 97433, 19970, 03539 ####[facility] Neutrophils/100 WBC Auto (Bld) 71.5 % Normal 40.0-72.0 [facility] Comment on above: Performed By: #### 4 1000, 73591, 86225, 94470, 68317, 68530 ####[facility] [facility] Nucleated RBC/100 WBC Ratio (Bld) 0 % Normal 0-0 [facility] Comment on above: Performed By: #### 4 1000, 09550, 58809, 02925, 71133, 90166 ####[facility] PLAT CNT 199 10*3/uL Normal 150-[address] [facility] Comment on above: Performed By: #### 4 1000, 71849, 60502, 32791, 28297, 46190 ####[facility] [facility] RBC Auto #/vol (Bld) 5.20 10*6/uL High 3.80-5.00 [facility] Comment on above: Performed By: #### 4 1000, 08188, 74308, 58191, 52800, 64684 ####[facility] [facility].[address] WBC Auto #/vol (Bld) 6.6 10*3/uL Normal 4.0-10.6 [facility] Comment on above: Performed By: #### 4 1000, 55231, 42451, 91574, 12333, 07185 ####[facility] [facility].[address] COMP METABOLIC PANELon 05-27 Albumin mass conc 4.6 g/dL Normal 3.5-5.7 [facility] Comment on above: Performed By: #### 4 1000, 29074, 31183, 71965, 60493, 32559 ####[facility] ALKALINE PHOSPH 105 IU/L High 34-104 [facility] Comment on above: Performed By: #### 4 1000, 00489, 38660, 05412, 89908, 40857 ####[facility] [place] [address], [facility] ALT enzyme act/vol 20 U/L Normal 7-52 The [facility] Comment on above: Performed By: #### 4 1000, 45363, 82524, 97231, 17819, 67859 ####[facility] [place] [address], [facility] AST enzyme act/vol 23 U/L Normal 13-39 The [facility] Comment on above: Performed By: #### 4 1000, 28086, 43173, 15853, 37743, 67211 ####[facility] [place] [address], [facility] Bilirubin mass conc 0.6 mg/dL Normal 0.3-1.0 The [facility] Comment on above: Performed By: #### 4 1000, 97445, 60190, 95467, 16008, 92245 ####[facility] [place] [address], [facility] Calcium mass conc 9.8 mg/dL Normal 8.6-10.3 [facility] Comment on above: Performed By: #### 4 1000, 96242, 07123, 53962, 17545, 51180 ####[facility] [place] [address], [place] Chloride molar conc 106 mmol/L Normal 98-107 The [facility] Comment on above: Performed By: #### 4 1000, 39606, 78431, 86418, 60970, 06055 ####[facility] [place] [address], [place] CO2 molar conc 30 mmol/L Normal 21-31 The [facility] Comment on above: Performed By: #### 4 1000, 39988, 85696, 64905, 56744, 96018 ####[facility] [place] [address], [facility] Creatinine mass conc 0.80 mg/dL Normal 0.60-1.20 [facility] Comment on above: Performed By: #### 4 1000, 74784, 43709, 18153, 45615, 44324 ####[facility] [place] [address], [facility] GFR/1.73 sq M predicted among blacks MDRD vol rate/area (S/P/Bld) mL/min/{1.73_m2} Normal >60 [facility] Comment on above: Performed By: #### 4 1000, 12543, 94057, 88667, 26745, 59537 ####[facility] [place] [address], [facility] GFR/1.73 sq M predicted among non-blacks MDRD vol rate/area (S/P/Bld) mL/min/{1.73_m2} Normal >60 [facility] Comment on above: Performed By: #### 4 1000, 00656, 29069, 32635, 97624, 85773 ####[facility] [place] [address], [facility] Glucose mass conc 90 mg/dL Normal 70-100 [facility] Comment on above: Performed By: #### 4 1000, 56305, 69433, 60811, 35194, 45709 ####[facility] [facility] [place] [place] [address], [facility] Potassium molar conc 4.0 mmol/L Normal 3.5-5.1 [facility] Comment on above: Performed By: #### 4 1000, 99147, 86071, 76712, 02585, 06279 ####[facility] Protein mass conc 6.8 g/dL Normal 6.0-8.3 [facility] Comment on above: Performed By: #### 4 1000, 71046, 99115, 66650, 22671, 50191 ####[facility] Sodium molar conc 138 mmol/L Normal 136-145 [facility] Comment on above: Performed By: #### 4 1000, 55794, 51711, 43944, 88218, 40782 ####[facility] [facility].[address] Urea nitrogen mass conc 14 mg/dL Normal 7-25 [facility] Comment on above: Performed By: #### 4 1000, 81646, 37389, 55556, 19300, 64366 ####[facility] [facility].[address] DIRECT BILIon 05-27-2017 Bilirubin.direct mass conc 0.1 mg/dL Normal 0.0-0.2 [facility] Comment on above: Performed By: #### 4 1000, 91272, 29555, 48070, 68340, 43021 ####[place] [address] [facility].[address] EVEROLIMUS 13610rg 8 EVEROLIMUS 5.6 ng/mL Normal [facility] Comment on above: Result Comment: Ther [...] the transplantcenter.Test developed and characteristics determined by [employer]. See Compliance Statement B: [email or web address] by [employer],[address] [place] [id number] [email or web address] Antonio MD - Lab. Director HEMOGLOBIN A1Con 05-27-2017 Glucose mass conc 108 mg/dL Normal 70-126 [facility] Comment on above: Performed By: #### 4 1000, 99312, 93540, 37300, 74380, 58271 ####[facility] [facility] [place] [place] [address], [facility] Hemoglobin A1c/Hemoglobin.total mass fraction (Bld) 5.4 % Normal 4.0-6.0 The [facility] Comment on above: Performed By: #### 4 1000, 12575, 99392, 56821, 07876, 71911 ####[facility] [facility] [address], [facility] LIPID PROFILEon 05-27-2017 Cholesterol in HDL mass conc 39 mg/dL Normal 23-92 [facility] Comment on above: Result Comment: Slig ht variation in normal range could be due to gender and/or age.HDL CHOLESTEROL REFERENCE RANGE:20 years and older Cardiovascular Risk> or =60 mg/dL Biefduupk12 TO 59 mg/dL Low Risk<40 mg/dL High Risk Performed By: #### 4 1000, 53383, 73342, 28090, 94657, 85611 ####[facility] [place] [address], [place] Cholesterol in LDL mass conc 52 mg/dL Normal 0-130 [facility] Comment on above: Result Comment: LDL IS A CALCULATIONLDL IS ONLY VALID IF THE TRIG IS LESS THAN 400. Performed By: #### 4 1000, 11007, 08338, 26383, 89811, 81488 ####[facility] [place] [address], [facility] Cholesterol mass conc 117 mg/dL Low 120-200 [facility] Comment on above: Result Comment: CHOL ESTEROL REFERENCE RANGE:20 YEARS AND OLDER CARDIOVASCULAR RISKLess than 200 mg/dl Low [id number] to 239 mg/dl Borderline Astl449 mg/dl and greater High Risk Performed By: #### 4 1000, 50593, 52176, 40989, 37914, 85248 ####[facility] [place] [address], [facility] Cholesterol.total/Cho lesterol in HDL mass ratio 3.0 {ratio} Normal .0-4.5 [facility] Comment on above: Performed By: #### 4 1000, 32808, 11426, 94575, 95098, 90346 ####[facility] NON-HDL CHOLESTEROL 78 mg/dL Normal The [facility] Comment on above: Performed By: #### 4 1000, 79393, 78906, 08165, 79964, 09535 ####[facility] [place] [address], [facility] Triglyceride mass conc 131 mg/dL Normal 40-149 [facility] Comment on above: Result Comment: TRIG LYCERIDE REFERENCE RANGE:20 YEARS AND OLDER CARDIOVASCULAR RISKLESS THAN 150 mg/dl LOW [id number] TO 199 mg/dl BORDERLINE UUSY264 mg/dl AND GREATER HIGH RISK Performed By: #### 4 1000, 07168, 94802, 79999, 87360, 52135 ####[facility] [place] [address], [facility] VLDL CHOL 26 mg/dL Normal 0-40 [facility] Comment on above: Performed By: #### 4 1000, 58705, 01770, 72670, 92802, 28328 ####[facility] [facility].[address] MAGNESIUM BLOODon 05-27-2017 Magnesium mass conc 2.1 mg/dL Normal 1.9-2.7 The [facility] Comment on above: Performed By: #### 4 1000, 23394, 86989, 96020, 75242, 06862 ####[facility] [facility].[address] PHOSPHORUS BLOODon 8 Phosphate mass conc 3.5 mg/dL Normal 2.5-5.0 The [facility] Comment on above: Performed By: #### 4 1000, 20270, 86008, 39247, 91631, 12243 ####[facility] [facility].[address] TACROLIMUSon 05-27-2017 Tacrolimus mass conc (Bld) 4.4 ng/mL Low 5.0-20.0 The [facility] Comment on above: Result Comment: The [employer] Tacrolimus assay is a delayed one-step immunoassayfor the quantitative determination of tacrolimus in human whole bloodusing the chemiluminescent microparticle immunoassay (CMIA) technologywith flexible assay protocols, referred to as Chemiflex. Performed By: #### 4 1000, 27883, 83730, 84418, 56876, 05390 ####[facility] [facility].[address] URIC ACID BLOODon 05-27-2017 Urate mass conc 4.6 mg/dL Normal 2.3-6.6 [facility] Comment on above: Performed By: #### 4 1000, 80104, 77756, 10016, 59757, 22001 ####[facility] [facility].[address] CBC W/DIFFon 01-30-2018 ABS BASOPHILS 0.0 10*3/uL Normal 0.0-0.2 The [facility] Comment on above: Performed By: #### 4 1000, 75350, 07710, 67801, 57293, 10389 ####[facility] ABS IMM GRANS 0.0 10*3/uL Normal 0.0-0.2 [facility] Comment on above: Performed By: #### 4 1000, 32770, 17437, 52748, 55304, 22127 ####[facility] ABS NEUTROPHILS 4.6 10*3/uL Normal 1.6-7.6 The [facility] Comment on above: Performed By: #### 4 1000, 17341, 95767, 69018, 36275, 49611 ####[facility] Basophils Auto #/vol (Bld) 0.3 % Normal 0.0-1.0 The [facility] Comment on above: Performed By: #### 4 1000, 65014, 08985, 09349, 32725, 52411 ####[place] [address] [address] Eosinophils Auto #/vol (Bld) 0.1 10*3/uL Normal 0.0-0.5 [facility] Comment on above: Performed By: #### 4 1000, 13651, 04315, 94549, 32470, 49108 ####[facility] Eosinophils/100 WBC Auto (Bld) 1.7 % Normal 0.0-6.0 [facility] Comment on above: Performed By: #### 4 1000, 14788, 42666, 02594, 18317, 10901 ####[facility] [facility].[address] Erythrocyte distribution width Auto Ratio (RBC) 13.7 % Normal 11.5-15.0 [facility] Comment on above: Performed By: #### 4 1000, 58065, 14024, 15803, 20269, 32164 ####[facility] [facility].[address] Hematocrit Auto Volume Fraction (Bld) 45.0 % Normal 36.0-45.0 The [facility] Comment on above: Performed By: #### 4 1000, 64446, 67132, 82440, 04081, 43902 ####[place] [address] [facility].[address] Hemoglobin mass conc (Bld) 14.9 g/dL Normal 12.0-15.0 [facility] Comment on above: Performed By: #### 4 1000, 47595, 90122, 51138, 09797, 31734 ####[facility] [facility].[address] IMMATURE GRANS 0.3 % Normal 0.0-1.0 The [facility] Comment on above: Performed By: #### 4 1000, 20455, 11502, 10661, 88592, 92501 ####[place] [address] [facility].[address] Lymphocytes Auto #/vol (Bld) 0.9 10*3/uL Low 1.2-4.0 The [facility] Comment on above: Performed By: #### 4 1000, 81510, 33021, 65849, 07436, 88140 ####[facility]3000 [facility].[address] Lymphocytes/100 WBC Auto (Bld) 14.2 % Low 20.0-45.0 The [facility] Comment on above: Performed By: #### 4 1000, 95520, 93918, 46026, 13424, 28162 ####[facility] MCH Auto Entitic mass (RBC) 29.4 pg Normal 27.0-33.0 The [facility] Comment on above: Performed By: #### 4 1000, 75162, 53277, 14450, 56578, 79576 ####[facility] MCHC Auto mass conc (RBC) 33.1 g/dL Normal 32.0-35.0 [facility] Comment on above: Performed By: #### 4 1000, 48666, 47474, 47353, 86587, 14872 ####[facility] MCV Auto Entitic volume (RBC) 88.8 fL Normal 82.0-98.0 [facility] Comment on above: Performed By: #### 4 1000, 58979, 02728, 66698, 00515, 36173 ####[facility]3000 [facility] Monocytes Auto #/vol (Bld) 0.8 10*3/uL Normal 0.1-1.0 [facility] Comment on above: Performed By: #### 4 1000, 65614, 47097, 59565, 35226, 68237 ####[facility] MONOS 12.2 % High 5.0-12.0 The [facility] Comment on above: Performed By: #### 4 1000, 27290, 02295, 49058, 90329, 96690 ####[facility] Neutrophils/100 WBC Auto (Bld) 71.3 % Normal 40.0-72.0 [facility] Comment on above: Performed By: #### 4 1000, 79598, 93563, 06522, 29064, 55963 ####[facility] [facility] Nucleated RBC/100 WBC Ratio (Bld) 0 % Normal 0-0 [facility] Comment on above: Performed By: #### 4 1000, 80710, 90839, 00328, 01961, 79309 ####[facility] PLAT CNT 215 10*3/uL Normal 150-[address] [facility] Comment on above: Performed By: #### 4 1000, 65247, 22718, 50509, 02356, 96644 ####[facility] [facility] RBC Auto #/vol (Bld) 5.07 10*6/uL High 3.80-5.00 [facility] Comment on above: Performed By: #### 4 1000, 26945, 16629, 38386, 81572, 65421 ####[facility]3000 [facility].[address] WBC Auto #/vol (Bld) 6.5 10*3/uL Normal 4.0-10.6 [facility] Comment on above: Performed By: #### 4 1000, 51185, 62383, 54568, 15437, 24329 ####[facility] [facility] COMP METABOLIC PANELon 04-29 Albumin mass conc 4.4 g/dL Normal 3.5-5.7 [facility] Comment on above: Performed By: #### 4 1000, 27606, 95503, 71279, 05073, 30142 ####[facility] ALKALINE PHOSPH 114 IU/L High 34-104 [facility] Comment on above: Performed By: #### 4 1000, 52314, 44987, 18189, 32704, 23001 ####[facility] [place] [address], [place] ALT enzyme act/vol 15 U/L Normal 7-52 [facility] Comment on above: Performed By: #### 4 1000, 13253, 10559, 52113, 80523, 35708 ####[facility] [place] [address], [place] AST enzyme act/vol 19 U/L Normal 13-39 [facility] Comment on above: Performed By: #### 4 1000, 42926, 03374, 43467, 71434, 34848 ####[facility] [place] [address], [place] Bilirubin mass conc 0.7 mg/dL Normal 0.3-1.0 The [facility] Comment on above: Performed By: #### 4 1000, 87853, 16806, 22392, 60983, 63797 ####[facility] [place] [address], [place] Calcium mass conc 9.6 mg/dL Normal 8.6-10.3 [facility] Comment on above: Performed By: #### 4 1000, 43513, 64181, 06501, 77877, 14891 ####[facility] [place] [address], [place] Chloride molar conc 103 mmol/L Normal 98-107 The [facility] Comment on above: Performed By: #### 4 1000, 91974, 77477, 04086, 33608, 10110 ####[facility] [facility] [place] [address], [place] CO2 molar conc 29 mmol/L Normal 21-31 [facility] Comment on above: Performed By: #### 4 1000, 47016, 80469, 93101, 83495, 04815 ####[facility] [place] [address], [facility] Creatinine mass conc 0.79 mg/dL Normal 0.60-1.20 [facility] Comment on above: Performed By: #### 4 1000, 23347, 54474, 71892, 12406, 69060 ####[facility] [place] [address], [facility] GFR/1.73 sq M predicted among blacks MDRD vol rate/area (S/P/Bld) mL/min/{1.73_m2} Normal >60 [facility] Comment on above: Performed By: #### 4 1000, 79592, 24250, 46704, 68921, 23430 ####[facility] [place] [address], [facility] GFR/1.73 sq M predicted among non-blacks MDRD vol rate/area (S/P/Bld) mL/min/{1.73_m2} Normal >60 [facility] Comment on above: Performed By: #### 4 1000, 75709, 43282, 36343, 40333, 69493 ####[facility] [place] [address], [facility] Glucose mass conc 90 mg/dL Normal 70-100 [facility] Comment on above: Performed By: #### 4 1000, 40304, 78067, 34319, 75884, 11708 ####[facility] [place] [address], [facility] Potassium molar conc 3.8 mmol/L Normal 3.5-5.1 [facility] Comment on above: Performed By: #### 4 1000, 01577, 65644, 45406, 52320, 56694 ####[facility] [place] [address], [place] Protein mass conc 7.2 g/dL Normal 6.0-8.3 [facility] Comment on above: Performed By: #### 4 1000, 68009, 48401, 84064, 46294, 36056 ####[facility] Sodium molar conc 140 mmol/L Normal 136-145 [facility] Comment on above: Performed By: #### 4 1000, 59778, 41823, 58715, 27354, 24892 ####[facility] Urea nitrogen mass conc 15 mg/dL Normal 7-25 [facility] Comment on above: Performed By: #### 4 1000, 85636, 31265, 08894, 64893, 34035 ####[facility] DIRECT BILIon 04-29-2017 Bilirubin.direct mass conc 0.1 mg/dL Normal 0.0-0.2 [facility] Comment on above: Order Comment: Liver Battery conflicts with Comprehensive Metabolic Panel. Liver Battery canceled and Direct Bilirubin added. Performed By: #### 4 1000, 53214, 41009, 60888, 96928, 46545 ####[facility] EVEROLIMUS 62060ma 8 EVEROLIMUS 5.4 ng/mL Normal The [facility] Comment on above: Result Comment: Ther [...] the transplantcenter.Test developed and characteristics determined by [employer]. See Compliance Statement B: [email or web address] by [employer],[address] [place] [address] [email or web address], Leonid Antonio MD - Lab. Director LIPID PROFILEon 04-29-2017 Cholesterol in HDL mass conc 49 mg/dL Normal 23-92 [facility] Comment on above: Result Comment: Slig ht variation in normal range could be due to gender and/or age.HDL CHOLESTEROL REFERENCE RANGE:20 years and older Cardiovascular Risk> or =60 mg/dL Cvhchyeze05 TO 59 mg/dL Low Risk<40 mg/dL High Risk Performed By: #### 4 1000, 78770, 25629, 02451, 14720, 59592 ####[facility] Cholesterol in LDL mass conc 52 mg/dL Normal 0-130 [facility] Comment on above: Result Comment: LDL IS A CALCULATIONLDL IS ONLY VALID IF THE TRIG IS LESS THAN 400. Performed By: #### 4 1000, 24721, 83096, 36569, 72147, 53546 ####[facility] [facility] [place] [address], [facility] Cholesterol mass conc 122 mg/dL Normal 120-200 [facility] Comment on above: Result Comment: CHOL ESTEROL REFERENCE RANGE:20 YEARS AND OLDER CARDIOVASCULAR RISKLess than 200 mg/dl Low Xrkd286 to 239 mg/dl Borderline Mzsc912 mg/dl and greater High Risk Performed By: #### 4 1000, 69076, 05038, 94455, 48315, 73282 ####[facility] [place] [address], [facility] Cholesterol.total/Cho lesterol in HDL mass ratio 2.5 {ratio} Normal .0-4.5 [facility] Comment on above: Performed By: #### 4 1000, 88853, 15619, 97297, 30891, 58814 ####[facility], [place] [address] [place] [address] NON-HDL CHOLESTEROL 73 mg/dL Normal The [facility] Comment on above: Performed By: #### 4 1000, 42959, 36468, 41709, 83698, 79691 ####[facility] Triglyceride mass conc 106 mg/dL Normal 40-149 [facility] Comment on above: Result Comment: TRIG LYCERIDE REFERENCE RANGE:20 YEARS AND OLDER CARDIOVASCULAR RISKLESS THAN 150 mg/dl LOW [id number] TO 199 mg/dl BORDERLINE NLVT208 mg/dl AND GREATER HIGH RISK Performed By: #### 4 1000, 25299, 72185, 05506, 40923, 16604 ####[facility] VLDL CHOL 21 mg/dL Normal 0-40 [facility] Comment on above: Performed By: #### 4 1000, 07402, 48565, 87316, 27563, 26360 ####[facility] [place] [address], [facility] MAGNESIUM BLOODon 04-29-2017 Magnesium mass conc 2.1 mg/dL Normal 1.9-2.7 The [facility] Comment on above: Performed By: #### 4 1000, 12821, 78633, 43988, 43051, 83129 ####[facility] [place] [address], [facility] PHOSPHORUS BLOODon 8 Phosphate mass conc 3.3 mg/dL Normal 2.5-5.0 [facility] Comment on above: Performed By: #### 4 1000, 61754, 89550, 05975, 52806, 94727 ####[facility] TACROLIMUSon 04-29-2017 Tacrolimus mass conc (Bld) 4.6 ng/mL Low 5.0-20.0 [facility] Comment on above: Result Comment: The [employer] Tacrolimus assay is a delayed one-step immunoassayfor the quantitative determination of tacrolimus in human whole bloodusing the chemiluminescent microparticle immunoassay (CMIA) technologywith flexible assay protocols, referred to as Chemiflex. Performed By: #### 4 1000, 98389, 34958, 75415, 26366, 32041 ####[facility] [facility].[address] URIC ACID BLOODon 04-29-2017 Urate mass conc 4.6 mg/dL Normal 2.3-6.6 The [facility] Comment on above: Performed By: #### 4 1000, 65105, 67809, 00320, 27456, 51905 ####[facility] [facility].[address] CBC W/DIFFon 03-27-2017 Basophils Auto #/vol (Bld) 0.2 % Normal 0.0-2.0 [facility] Comment on above: Performed By: #### 4 1000, 40369, 25512, 01948, 96060, 61059 ####[facility] [facility].[address] Eosinophils/100 WBC Auto (Bld) 1.8 % Normal 0.0-5.0 [facility] Comment on above: Performed By: #### 4 1000, 98890, 37655, 96880, 19233, 49161 ####[facility] [facility] [place] [address], [place] Erythrocyte distribution width Auto Ratio (RBC) 13.6 % Normal 11.5-16.9 [facility] Comment on above: Performed By: #### 4 1000, 35389, 49645, 80666, 67785, 01444 ####[facility] Hematocrit Auto Volume Fraction (Bld) 47.6 % Normal 36.0-48.0 [facility] Comment on above: Performed By: #### 4 1000, 24264, 58521, 10302, 39595, 04687 ####[facility] Hemoglobin mass conc (Bld) 15.8 g/dL High 12.0-15.0 [facility] Comment on above: Performed By: #### 4 1000, 81963, 11469, 21455, 24789, 05082 ####[facility] Lymphocytes/100 WBC Auto (Bld) 14.5 % Low 20.0-40.0 [facility] Comment on above: Performed By: #### 4 1000, 94395, 95340, 38914, 30771, 05967 ####[facility] MCH Auto Entitic mass (RBC) 29.0 pg Normal 24.0-32.0 [facility] Comment on above: Performed By: #### 4 1000, 88286, 86926, 94154, 92690, 42169 ####[facility] [place] [address], [facility] MCHC Auto mass conc (RBC) 33.3 g/dL Normal 32.0-36.0 [facility] Comment on above: Performed By: #### 4 1000, 15587, 68231, 97143, 92614, 89226 ####[facility] MCV Auto Entitic volume (RBC) 87.4 fL Normal 80.0-100.0 [facility] Comment on above: Performed By: #### 4 1000, 04187, 67876, 35817, 34334, 42920 ####[facility] METHOD Normal RBC Morphology Normal [facility] Comment on above: Performed By: #### 4 1000, 00576, 94676, 44687, 72505, 41314 ####[facility] MONOS 9.6 % High 2-8 [facility] Comment on above: Performed By: #### 4 1000, 66637, 50672, 03646, 44502, 85207 ####[facility] Neutrophils/100 WBC Auto (Bld) 73.9 % High 50-70 [facility] Comment on above: Performed By: #### 4 1000, 10899, 40852, 47280, 05719, 76850 ####[facility] PLAT CNT 228 Thou/mm3 Normal 100-400 The [facility] Comment on above: Performed By: #### 4 1000, 29702, 04967, 68681, 22227, 41789 ####[facility] RBC Auto #/vol (Bld) 5.45 mill/mm3 Normal 3.50-5.50 T he [facility] Comment on above: Performed By: #### 4 1000, 56630, 38424, 59623, 22273, 14259 ####[facility] WBC Auto #/vol (Bld) 6.5 Thou/mm3 Normal 4.0-10.0 Th e [facility] Comment on above: Performed By: #### 4 1000, 98862, 99469, 06120, 83464, 28586 ####[facility] COMP METABOLIC PANELon 03-27 Albumin mass conc 4.7 g/dL Normal 3.5-5.7 [facility] Comment on above: Performed By: #### 4 1000, 78517, 06931, 91676, 23609, 50789 ####[facility] [place] [address], [facility] ALKALINE PHOSPH 99 IU/L Normal 34-104 The [facility] Comment on above: Performed By: #### 4 1000, 58128, 43774, 43611, 40860, 46425 ####[facility] ALT enzyme act/vol 19 U/L Normal 7-52 The [facility] Comment on above: Performed By: #### 4 1000, 99652, 19404, 16072, 25433, 37456 ####[facility] AST enzyme act/vol 21 U/L Normal 13-39 The [facility] Comment on above: Performed By: #### 4 1000, 85610, 71875, 97044, 30841, 82796 ####[facility] [place] [address], [facility] Bilirubin mass conc 0.6 mg/dL Normal 0.3-1.0 [facility] Comment on above: Performed By: #### 4 1000, 11417, 87164, 42787, 74448, 11709 ####[facility] [place] [address], [facility] Calcium mass conc 10.2 mg/dL Normal 8.6-10.3 [facility] Comment on above: Performed By: #### 4 1000, 34133, 42436, 41349, 06230, 99970 ####[facility] [place] [address], [place] Chloride molar conc 104 mmol/L Normal 98-107 The [facility] Comment on above: Performed By: #### 4 1000, 10824, 75696, 41750, 00944, 77896 ####[facility] [place] [address], [place] CO2 molar conc 28 mmol/L Normal 21-31 [facility] Comment on above: Performed By: #### 4 1000, 15395, 48234, 52454, 55210, 95856 ####[facility] [place] [address], [place] Creatinine mass conc 0.78 mg/dL Normal 0.60-1.20 [facility] Comment on above: Performed By: #### 4 1000, 43888, 42968, 15806, 28959, 44200 ####[facility] [place] [address], [place] GFR/1.73 sq M predicted among blacks MDRD vol rate/area (S/P/Bld) mL/min/{1.73_m2} Normal >60 [facility] Comment on above: Performed By: #### 4 1000, 64094, 06546, 02626, 61916, 04785 ####[facility] [place] [address], [place] GFR/1.73 sq M predicted among non-blacks MDRD vol rate/area (S/P/Bld) mL/min/{1.73_m2} Normal >60 [facility] Comment on above: Performed By: #### 4 1000, 06479, 78664, 73450, 38525, 04308 ####[facility] [place] [address], [facility] Glucose mass conc 87 mg/dL Normal 70-100 [facility] Comment on above: Performed By: #### 4 1000, 60121, 74301, 81140, 97079, 11365 ####[facility] [place] [address], [facility] Potassium molar conc 4.1 mmol/L Normal 3.5-5.1 [facility] Comment on above: Performed By: #### 4 1000, 04622, 90943, 81672, 67193, 33233 ####[facility] [place] [address], [facility] Protein mass conc 7.8 g/dL Normal 6.0-8.3 [facility] Comment on above: Performed By: #### 4 1000, 14894, 55829, 42915, 40867, 12386 ####[facility] [place] [address], [facility] Sodium molar conc 139 mmol/L Normal 136-145 [facility] Comment on above: Performed By: #### 4 1000, 43543, 77225, 23003, 67611, 11757 ####[facility] [place] [address], [facility] Urea nitrogen mass conc 19 mg/dL Normal 7-25 [facility] Comment on above: Performed By: #### 4 1000, 69621, 47791, 97802, 68959, 03421 ####[facility] [place] [address], [facility] DIRECT BILIon 03-27-2017 Bilirubin.direct mass conc 0.1 mg/dL Normal 0.0-0.2 [facility] Comment on above: Performed By: #### 4 1000, 77455, 45214, 42946, 26000, 06897 ####[facility] [place] [address], [facility] EVEROLIMUS 66258zi 7 EVEROLIMUS 5.3 ng/mL Normal [facility] Comment on above: Result Comment: Ther [...] the transplantcenter.Test developed and characteristics determined by [employer]. See Compliance Statement B: [email or web address] by [employer],[address] [place] [id number] [email or web address], Leonid Antonio MD - Lab. Director LIPID PROFILEon 03-27-2017 Cholesterol in HDL mass conc 50 mg/dL Normal 23-92 [facility] Comment on above: Result Comment: Slig ht variation in normal range could be due to gender and/or age.HDL CHOLESTEROL REFERENCE RANGE:20 years and older Cardiovascular Risk> or =60 mg/dL Pjyjezwcq28 TO 59 mg/dL Low Risk<40 mg/dL High Risk Performed By: #### 4 1000, 01863, 16001, 92457, 46949, 87650 ####[facility] [address], [facility] Cholesterol in LDL mass conc 66 mg/dL Normal 0-130 [facility] Comment on above: Result Comment: LDL IS A CALCULATIONLDL IS ONLY VALID IF THE TRIG IS LESS THAN 400. Performed By: #### 4 1000, 19245, 77255, 49813, 23389, 26351 ####[facility] [place] [address], [facility] Cholesterol mass conc 147 mg/dL Normal 120-200 [facility] Comment on above: Result Comment: CHOL ESTEROL REFERENCE RANGE:20 YEARS AND OLDER CARDIOVASCULAR RISKLess than 200 mg/dl Low Siyd708 to 239 mg/dl Borderline Ysos553 mg/dl and greater High Risk Performed By: #### 4 1000, 83891, 68760, 64433, 13580, 21137 ####[facility] [place] [address], [facility] Cholesterol.total/Cho lesterol in HDL mass ratio 2.9 {ratio} Normal .0-4.5 [facility] Comment on above: Performed By: #### 4 1000, 51943, 98108, 76455, 79671, 46420 ####[facility] [place] [address], [facility] NON-HDL CHOLESTEROL 97 mg/dL Normal The [facility] Comment on above: Performed By: #### 4 1000, 21414, 75880, 69304, 88231, 85621 ####[facility] [place] [address], [facility] Triglyceride mass conc 157 mg/dL High 40-149 [facility] Comment on above: Result Comment: TRIG LYCERIDE REFERENCE RANGE:20 YEARS AND OLDER CARDIOVASCULAR RISKLESS THAN 150 mg/dl LOW [id number] TO 199 mg/dl BORDERLINE QODS688 mg/dl AND GREATER HIGH RISK Performed By: #### 4 1000, 56640, 04139, 64235, 50287, 74487 ####[facility] [place] [address], [facility] VLDL CHOL 31 mg/dL Normal 0-40 [facility] Comment on above: Performed By: #### 4 1000, 76920, 41285, 44070, 00090, 36155 ####[facility] [facility].[address] MAGNESIUM BLOODon 03-27-2017 Magnesium mass conc 1.9 mg/dL Normal 1.9-2.7 The [facility] Comment on above: Performed By: #### 4 1000, 12281, 92701, 45297, 92892, 03152 ####[facility] [facility] [place] [address], [facility] PHOSPHORUS BLOODon 7 Phosphate mass conc 3.4 mg/dL Normal 2.5-5.0 The [facility] Comment on above: Performed By: #### 4 1000, 53484, 91991, 66660, 46401, 97009 ####[facility] [facility].[address] TACROLIMUSon 03-27-2017 Tacrolimus mass conc (Bld) 3.7 ng/mL Low 5.0-20.0 The [facility] Comment on above: Result Comment: The [employer] Tacrolimus assay is a delayed one-step immunoassayfor the quantitative determination of tacrolimus in human whole bloodusing the chemiluminescent microparticle immunoassay (CMIA) technologywith flexible assay protocols, referred to as Chemiflex. Performed By: #### 4 1000, 61844, 05655, 32389, 64446, 74312 ####[facility] [facility].[address] URIC ACID BLOODon 03-27-2017 Urate mass conc 4.1 mg/dL Normal 2.3-6.6 The [facility] Comment on above: Performed By: #### 4 1000, 45435, 47034, 93413, 49428, 29304 ####[facility] [facility].[address] BK VIRUS QUANTITATION PCR BL OODon 02-26-2017 BKV QUANT PCR Not detected Normal The [facility] Comment on above: Result Comment: Meth od: BK virus was measured by quantitative polymerase chain reactionusing a TaqMan probe targeting the polyomavirus BK MERCHANDISE FOR [employer]ALE PURCHASING AGENT-1 gene.The lower limit of quantitation of the assay is 500 copies of BK genomeper milliliter of plasma or urine, and any detectable BK DNA below thatlevel is reported as: Detected, <500 copies/ml. Serial BK virusmeasurement can be used to monitor disease activity. (Reference:Kelsie vaughanl. J CLIN MICRO 2004; 42:4200-3399).This test was developed and its performance characteristics determinedby the [facility] Molecular [facility]. It has not been approvedby the [place] Food and Drug Administration. However, such approval is notrequired for clinical implementation, and test results have been shownto be clinically useful. This laboratory is CAP accredited and CLIAcertified to perform high complexity testing. Performed By: #### 4 1000, 48664, 89261, 88562, 63511, 82163 ####[address] LOG 10 COPIES Not detected Normal The [facility] Comment on above: Performed By: #### 4 1000, 31834, 21010, 96354, 31488, 48807 ####[address] CBC W/DIFFon 02-26-2017 Basophils Auto #/vol (Bld) 0.3 % Normal 0.0-2.0 [facility] Comment on above: Performed By: #### 5 0103 ####[place] [address] Eosinophils/100 WBC Auto (Bld) 2.2 % Normal 0.0-5.0 [facility] Comment on above: Performed By: #### 5 0103 ####[address] Erythrocyte distribution width Auto Ratio (RBC) 13.8 % Normal 11.5-16.9 [facility] Comment on above: Performed By: #### 5 3 ####[facility] [facility].[address] Hematocrit Auto Volume Fraction (Bld) 44.9 % Normal 36.0-48.0 The [facility] Comment on above: Performed By: #### 3 ####[facility] [facility].[address] Hemoglobin mass conc (Bld) 15.0 g/dL Normal 12.0-15.0 [facility] Comment on above: Performed By: #### 3 ####[facility] [place] [address], [facility] Lymphocytes/100 WBC Auto (Bld) 18.9 % Low 20.0-40.0 [facility] Comment on above: Performed By: #### 3 ####[facility] [facility].[address] MCH Auto Entitic mass (RBC) 28.9 pg Normal 24.0-32.0 [facility] Comment on above: Performed By: #### 5 3 ####[facility] [facility].[address] MCHC Auto mass conc (RBC) 33.4 g/dL Normal 32.0-36.0 [facility] Comment on above: Performed By: #### 5 3 ####[facility] [place] [address], [facility] MCV Auto Entitic volume (RBC) 86.6 fL Normal 80.0-100.0 [facility] Comment on above: Performed By: #### 5 3 ####[facility] [facility] [place] [place] [address], [facility] METHOD Normal RBC Morphology Normal [facility] Comment on above: Performed By: #### 5 3 ####[facility] [place] [address], [facility] MONOS 11.7 % High 2-8 [facility] Comment on above: Performed By: #### 5 0103 ####[facility] [place] [address], [facility] Neutrophils/100 WBC Auto (Bld) 66.9 % Normal 50-70 [facility] Comment on above: Performed By: #### 5 0103 ####[facility] [place] [address], [facility] PLAT CNT 230 Thou/mm3 Normal 100-400 The [facility] Comment on above: Performed By: #### 5 0103 ####[facility] [facility] [place] [address], [facility] RBC Auto #/vol (Bld) 5.18 mill/mm3 Normal 3.50-5.50 T he [facility] Comment on above: Performed By: #### 5 0103 ####[facility] [place] [address], [facility] WBC Auto #/vol (Bld) 5.8 Thou/mm3 Normal 4.0-10.0 Th e [facility] Comment on above: Performed By: #### 5 0103 ####[facility] COMP METABOLIC PANELon 02-26 Albumin mass conc 4.7 g/dL Normal 3.5-5.7 The [facility] Comment on above: Performed By: #### 4 1000, 84045, 88746, 48039, 16608, 78755 ####[facility] [place] [address], [facility] ALKALINE PHOSPH 115 IU/L High 34-104 The [facility] Comment on above: Performed By: #### 4 1000, 27708, 31860, 77415, 48329, 17121 ####[facility] [place] [address], [place] ALT enzyme act/vol 18 U/L Normal 7-52 The [facility] Comment on above: Performed By: #### 4 1000, 02657, 44809, 85493, 87133, 77969 ####[facility] [place] [address], [place] AST enzyme act/vol 22 U/L Normal 13-39 The [facility] Comment on above: Performed By: #### 4 1000, 72934, 30951, 09813, 40707, 99616 ####[facility] [place] [address], [place] Bilirubin mass conc 0.6 mg/dL Normal 0.3-1.0 The [facility] Comment on above: Performed By: #### 4 1000, 19535, 18953, 35899, 59834, 70418 ####[facility] [place] [address], [place] Calcium mass conc 9.8 mg/dL Normal 8.6-10.3 The [facility] Comment on above: Performed By: #### 4 1000, 34434, 98820, 86525, 71242, 10538 ####[facility] [place] [address], [place] Chloride molar conc 103 mmol/L Normal 98-107 The [facility] Comment on above: Performed By: #### 4 1000, 66154, 09657, 15949, 69722, 95467 ####[facility] [place] [address], [place] CO2 molar conc 29 mmol/L Normal 21-31 The [facility] Comment on above: Performed By: #### 4 1000, 58991, 91808, 12503, 92732, 17185 ####[facility] [place] [address], [facility] Creatinine mass conc 0.78 mg/dL Normal 0.60-1.20 The [facility] Comment on above: Performed By: #### 4 1000, 83304, 66426, 63441, 57077, 52430 ####[facility] [place] [address], [place] GFR/1.73 sq M predicted among blacks MDRD vol rate/area (S/P/Bld) mL/min/{1.73_m2} Normal >60 The [facility] Comment on above: Performed By: #### 4 1000, 48260, 76600, 37938, 80120, 37959 ####[facility] [place] [address], [facility] GFR/1.73 sq M predicted among non-blacks MDRD vol rate/area (S/P/Bld) mL/min/{1.73_m2} Normal >60 The [facility] Comment on above: Performed By: #### 4 1000, 93336, 68167, 37909, 85125, 41645 ####[facility] [place] [address], [facility] Glucose mass conc 94 mg/dL Normal 70-100 The [facility] Comment on above: Performed By: #### 4 1000, 71892, 44549, 88429, 26899, 07298 ####[facility] [place] [address], [place] Potassium molar conc 3.8 mmol/L Normal 3.5-5.1 The [facility] Comment on above: Performed By: #### 4 1000, 28428, 30684, 18084, 11795, 55919 ####[facility] [place] [address], [place] Protein mass conc 7.4 g/dL Normal 6.0-8.3 The [facility] Comment on above: Performed By: #### 4 1000, 60014, 07563, 62979, 37691, 71778 ####[facility] Sodium molar conc 136 mmol/L Normal 136-145 The [facility] Comment on above: Performed By: #### 4 1000, 99773, 06356, 21461, 32706, 96196 ####[facility] Urea nitrogen mass conc 19 mg/dL Normal 7-25 The [facility] Comment on above: Performed By: #### 4 1000, 36810, 88522, 94775, 48610, 51305 ####[facility] DIRECT BILIon 02-26-2017 Bilirubin.direct mass conc 0.1 mg/dL Normal 0.0-0.2 The [facility] Comment on above: Performed By: #### 4 1000, 20924, 68310, 95839, 45315, 37341 ####[facility] EVEROLIMUS [id number] 7 EVEROLIMUS 5.9 ng/mL Normal The [facility] Comment on above: Result Comment: Ther [...] the transplantcenter.Test developed and characteristics determined by [facility]. See Compliance Statement B: [email or web address] by [employer],[address] [place] [id number] [email or web address], Leonid Antonio MD - Lab. Director HEMOGLOBIN A1Con 02-26-2017 Glucose mass conc 108 mg/dL Normal 70-126 [facility] Comment on above: Performed By: #### 4 6447, 51032 ####[facility] Hemoglobin A1c/Hemoglobin.total mass fraction (Bld) 5.4 % Normal 4.0-6.0 The [facility] Comment on above: Performed By: #### 4 6447, 77731 ####[facility] [facility].[address] LIPID PROFILEon 02-26-2017 Cholesterol in HDL mass conc 54 mg/dL Normal 23-92 [facility] Comment on above: Result Comment: Slig ht variation in normal range could be due to gender and/or age.HDL CHOLESTEROL REFERENCE RANGE:20 years and older Cardiovascular Risk> or =60 mg/dL Lynrfzllf95 TO 59 mg/dL Low Risk<40 mg/dL High Risk Performed By: #### 4 1000, 11124, 61647, 21875, 53997, 19660 ####[facility] [facility] [address], [facility] Cholesterol in LDL mass conc 70 mg/dL Normal 0-130 [facility] Comment on above: Result Comment: LDL IS A CALCULATIONLDL IS ONLY VALID IF THE TRIG IS LESS THAN 400. Performed By: #### 4 1000, 37880, 22950, 66793, 14902, 39463 ####[facility] [place] [address], [facility] Cholesterol mass conc 144 mg/dL Normal 120-200 The [facility] Comment on above: Result Comment: CHOL ESTEROL REFERENCE RANGE:20 YEARS AND OLDER CARDIOVASCULAR RISKLess than 200 mg/dl Low [id number] to 239 mg/dl Borderline Auel858 mg/dl and greater High Risk Performed By: #### 4 1000, 43098, 74359, 25082, 21365, 13799 ####[facility] [place] [address], [facility] Cholesterol.total/Cho lesterol in HDL mass ratio 2.7 {ratio} Normal .0-4.5 [facility] Comment on above: Performed By: #### 4 1000, 55428, 11301, 89022, 60780, 62970 ####[facility] NON-HDL CHOLESTEROL 90 mg/dL Normal The [facility] Comment on above: Performed By: #### 4 1000, 70240, 61615, 44343, 99140, 38083 ####[facility] [place] [address], [facility] Triglyceride mass conc 101 mg/dL Normal 40-149 The [facility] Comment on above: Result Comment: TRIG LYCERIDE REFERENCE RANGE:20 YEARS AND OLDER CARDIOVASCULAR RISKLESS THAN 150 mg/dl LOW [id number] TO 199 mg/dl BORDERLINE [id number] mg/dl AND GREATER HIGH RISK Performed By: #### 4 1000, 07894, 43446, 22029, 25054, 36479 ####[facility] [place] [address], [facility] VLDL CHOL 20 mg/dL Normal 0-40 The [facility] Comment on above: Performed By: #### 4 1000, 15738, 39795, 12344, 40692, 05538 ####[facility] [place] [address], [facility] MAGNESIUM BLOODon 11-29-2017 Magnesium mass conc 1.9 mg/dL Normal 1.9-2.7 The [facility] Comment on above: Performed By: #### 4 1000, 05980, 15113, 72399, 34851, 78043 ####[facility] PHOSPHORUS BLOODon 7 Phosphate mass conc 4.1 mg/dL Normal 2.5-5.0 The [facility] Comment on above: Performed By: #### 4 1000, 82274, 43490, 07348, 92443, 64305 ####[facility] TACROLIMUSon 02-26-2017 Tacrolimus mass conc (Bld) 4.2 ng/mL Low 5.0-20.0 The [facility] Comment on above: Result Comment: The [employer] WINDOW/DISTRIBUTION CLERK Tacrolimus assay is a delayed one-step immunoassayfor the quantitative determination of tacrolimus in human whole bloodusing the chemiluminescent microparticle immunoassay (CMIA) technologywith flexible assay protocols, referred to as Chemiflex. Performed By: #### 4 6447, 29440 ####[facility] URIC ACID BLOODon 02-26-2017 Urate mass conc 4.3 mg/dL Normal 2.3-6.6 The [facility] Comment on above: Performed By: #### 4 1000, 13500, 67079, 22975, 91277, 88731 ####[facility] Vital Signs Date Time Vital Sign Value Performing Clinician Facility 08-30-2023 09:040 Body height 182.88 cm [facility] 08-30-2023 09:0400 Body mass index (BMI) [Ratio] 17.9 kg/m2 [facility] 08-30-2023 09: Body temperature 99.8 [degF] [facility] 08-30-2023 09:22-0400 Body weight 59.87 kg [facility] 08-30-2023 09:22-0400 Diastolic blood pressure 73 mm[Hg] [facility] 08-30-2023 09:22-0400 Heart rate 67 /min [facility] 08-30-2023 09:22-0400 SaO2% (BldA) [Mass fraction] 95 % [facility] 08-30-2023 09:22-0400 Systolic blood pressure 111 mm[Hg] [facility] 03-27-2023 11:30-0500 Body height 152.4 cm Cathy Bella Other [facility] Other 03-27-2023 11:30-0500 Body mass index (BMI) [Ratio] 25.39 kg/m2 Cathy Bella Other [facility] Other 03-27-2023 11:30-0500 Body temperature 97.5 [degF] Cathy Bella Other [facility] Other 03-27-2023 11:30-0500 Body weight 58.97 kg Cathy Bella Other [facility] Other 03-27-2023 11:30-0500 Respiratory rate 18 /min Cathy Bella Other [facility] Other 03-27-2023 11:30-0500 SaO2% (BldA) [Mass fraction] 96 % Cathy Bella Other [facility] Other 09-21-2022 09:00-0400 Body height 152.4 cm Martha Guevara Other [facility] Other 09-21-2022 09:00-0400 Body mass index (BMI) [Ratio] 22.46 kg/m2 Martha Guevara Other [facility] Other 09-21-2022 09:00-0400 Body temperature 97.6 [degF] Martha Guevara Other [facility] Other 09-21-2022 09:00-0400 Body weight 52.16 kg Martha Guevara Other [facility] Other 09-21-2022 09:00-0400 Diastolic blood pressure 70 mm[Hg] Martha Guevara Other [facility] Other 09-21-2022 09:00-0400 Respiratory rate 18 /min Martha Guevara Other [facility] Other 09-21-2022 09:00-0400 SaO2% (BldA) [Mass fraction] 96 % Martha Guevara Other [facility] Other 09-21-2022 09:00-0400 Systolic blood pressure 107 mm[Hg] Martha Guevara Other [facility] Other 01-12-2022 13:55-0400 Body height 152.4 cm Cathy Bella Other [facility] Other 01-12-2022 13:55-0400 Body mass index (BMI) [Ratio] 19.53 kg/m2 Cathy Bella Other [facility] Other 01-12-2022 13:55-0400 Body temperature 96.9 [degF] Cathy Bella Other [facility] Other 01-12-2022 13:55-0400 Body weight 45.36 kg Cathy Bella Other [facility] Other 01-12-2022 13:55-0400 Respiratory rate 18 /min Cathy Bella Other [facility] Other 01-12-2022 13:55-0400 SaO2% (BldA) [Mass fraction] 97 % Cathy Bella Other [facility] Other 12-28-2021 10:20-0400 Body height 152.4 cm Martha Guevara Other [facility] Other 12-28-2021 10:20-0400 Body mass index (BMI) [Ratio] 21.48 kg/m2 Martha Paola Other [facility] Other 12-28-2021 10:20-0400 Body temperature 98 [degF] Martha Smithmond Other [facility] Other 12-28-2021 10:20-0400 Body weight 49.9 kg Martha Smithmond Other [facility] Other 12-28-2021 10:20-0400 Respiratory rate 18 /min Martha Smithmond Other [facility] Other 12-28-2021 10:20-0400 SaO2% (BldA) [Mass fraction] 97 % Martha Paola Other [facility] Other 12-25-2021 10:05-0400 Body height 152.4 cm Cathy Bella Other [facility] Other 12-25-2021 10:05-0400 Body mass index (BMI) [Ratio] 21.48 kg/m2 Cathy Bella Other [facility] Other 12-25-2021 10:05-0400 Body temperature 96 [degF] Cathy Bella Other [facility] Other 12-25-2021 10:05-0400 Body weight 49.9 kg Cathy Bella Other [facility] Other 12-25-2021 10:05-0400 Respiratory rate 18 /min Cathy Bella Other [facility] Other 12-25-2021 10:05-0400 SaO2% (BldA) [Mass fraction] 97 % Cathy Bella Other [facility] Other 10-27-2021 12:35-0400 Body height 152.4 cm Cathy Bella Other [facility] Other 10-27-2021 12:35-0400 Body mass index (BMI) [Ratio] 22.85 kg/m2 Cathy Bella Other [facility] Other 10-27-2021 12:35-0400 Body weight 53.07 kg Cathy Bella Other [facility] Other 10-27-2021 12:35-0400 Diastolic blood pressure 87 mm[Hg] Cathy Bella Other [facility] Other 10-27-2021 12:35-0400 SaO2% (BldA) [Mass fraction] 98 % Cathy Bella Other [facility] Other 10-27-2021 12:35-0400 Systolic blood pressure 130 mm[Hg] Cathy Bella Other [facility] Other 08-14-2021 10:40-0400 Body height 152.4 cm Martha Guevara Other [facility] Other 08-14-2021 10:40-0400 Body mass index (BMI) [Ratio] 22.46 kg/m2 Martha Guevara Other [facility] Other 08-14-2021 10:40-0400 Body temperature 96.7 [degF] Martha Guevara Other [facility] Other 08-14-2021 10:40-0400 Body weight 52.16 kg Marhta Guevara Other [facility] Other 08-14-2021 10:40-0400 Diastolic blood pressure 68 mm[Hg] Martha Guevara Other [facility] Other 08-14-2021 10:40-0400 Respiratory rate 20 /min Martha Guevara Other [facility] Other 08-14-2021 10:40-0400 SaO2% (BldA) [Mass fraction] 98 % Martha Guevara Other [facility] Other 08-14-2021 10:40-0400 Systolic blood pressure 144 mm[Hg] Martha Paola Other [facility] Other Encounters Encounter Date Encounter Type Care Provider Facility Start: 09-23-2023 End: 09-23-2023 ambulatory VIRGIL HAYNES [facility] Start: 09-02-2023 End: 09-02-2023 ambulatory ESTER Townsend HEMMER Not Available Start: 08-30-2023 End: 08-30-2023 ambulatory [facility] Work Phone: Start: 08-30-2023 End: 08-30-2023 Patient encounter procedure [facility] Work Phone: Start: 04-02-2023 End: 04-02-2023 ambulatory RAMON CARROLL Not Available Start: 03-27-2023 End: 03-27-2023 ambulatory Cathy Bella Other [facility] Other Start: 03-27-2023 Office outpatient visit 25 minutes Cathy Bella [facility] Start: 03-17-2023 End: 03-17-2023 ambulatory VIRGIL [facility] Start: 03-06-2023 End: 03-06-2023 ambulatory ESTER Townsend HEMMER Not Available Start: 02-12-2023 End: 02-12-2023 ambulatory ESTER Townsend HEMMER Not Available Start: 09-21-2022 End: 09-21-2022 ambulatory Martha Guevara Other [facility] Other Start: 09-21-2022 Office outpatient visit 15 [...] MISC Facility:H1 Start: 01-12-2022 End: 01-12-2022 ambulatory Cathy Bella Other [facility] Other Start: 01-12-2022 Office outpatient visit 15 minutes Cathy Bella [facility] Start: 01-07-2022 End: 01-07-2022 ambulatory ISATU GUAMAN . Facility:[facility]1 Start: 01-03-2022 End: 01-04-[address] VIRGIL SWIFT Facility:[facility]1 Start: 12-28-2021 End: 12-28-2021 ambulatory Martha Guevara Other [facility] Other Start: 12-28-2021 Office outpatient visit 15 minutes Marthajd Guevara [facility] Start: 12-25-2021 End: 12-25-2021 ambulatory Cathy Bella Other [facility] Other Start: 12-25-2021 Office outpatient visit 25 minutes Cathy Bella [facility] Start: 12-05-2021 End: 12-06-2021 ambulatory DOCTOR MISC Facility:[facility]1 Start: 11-07-2021 End: 11-08-2021 ambulatory DOCTOR MISC Facility:[facility]1 Start: 10-27-2021 End: 10-27-2021 ambulatory Cathy Bella Other [facility] Other Start: 10-27-2021 Office outpatient visit 15 minutes Cathy Bella [facility] Start: 10-15-2021 End: 10-16-[address] DOCTOR MISC Facility:[facility]1 Start: 10-08-2021 End: 10-09-[address] DOCTOR MISC Facility:H1 Start: 09-10-2021 End: 09-11-[address] DOCTOR MISC Facility:[facility]1 Start: 08-14-2021 End: 08-14-2021 ambulatory Martha Guevara Other [facility] Other Start: 08-14-2021 Office outpatient visit 15 minutes Martha Guevara [facility] Start: 12-31-2017 End: 01-01-2018 Patient encounter VIRGIL HAYNES Facility:[facility] Start: 12-25-2017 End: 12-26-2017 Patient encounter ROSALINDA ROSENBAUM Facility:[facility] Start: 10-30-2017 End: 10-31-2017 Patient encounter ROSALINDA ROSENBAUM Facility:[facility] Start: 10-23-2017 End: 10-24-2017 Patient encounter ROSALINDA ROSENBAUM Facility:[facility] Start: 09-25-2017 End: 09-26-2017 Patient encounter ROSALINDAMAGDALENO ROSENBAUM Facility:[facility] Start: 08-26-2017 End: 08-27-2017 Patient encounter ROSALINDAMAGDALENO ROSENBAUM Facility:[facility] Start: 07-23-2017 End: 07-24-2017 Patient encounter ROSALINDA ROSENBAUM Facility:[facility] Start: 06-20-2017 End: 06-21-2017 Patient encounter ROSALINDA ROSENBAUM Facility:[facility] Start: 05-27-2017 End: 05-28-2017 Patient encounter ROSALINDA ROSENBAUM Facility:[facility] Start: 04-29-2017 End: 04-30-2017 Patient encounter ROSALINDA ROSENBAUM Facility:[facility] Start: 03-27-2017 End: 03-28-2017 Patient encounter ROSALINDA ROSENBAUM Facility:[facility] Start: 02-26-2017 End: 02-27-2017 Patient encounter DOE BRIDGES Facility:[facility] Procedures Date Procedure Procedure Detail Performing Clinician Start: 08-30-2023 Quick Strep (POC) Start: 08-14-2021 Piperacillin/tazobactam Martha Guevara Other Immunizations Immunization Date Immunization Notes Care Provider Heri fatima 03-16-2009 influenza virus vaccine, split virus (incl. purified surface antigen) Martha Guevara Other [facility] Other 03-16-2009 influenza virus vaccine, unspecified formulation [facility] Payers Date Payer Category Payer [facility] [id number] 1959 Self-pay 1959 Unknown [id number] 1956 Unknown [id number] 2.16.8 40.1.370603.3.579.2.647 1956 Unknown [id number] 2.16.8 40.1.283057.3.579.2.647 1956 Unknown [id number] 2.16.8 40.1.229674.3.579.2.647 1956 Unknown [id number] 2.16.8 40.1.132287.3.579.2.647 1956 Unknown [id number] 2.16.8 40.1.818430.3.579.2.647 1956 Unknown [id number] 2.16.8 40.1.254962.3.579.2.647 1956 Unknown [id number] 2.16.8 40.1.363262.3.579.2.647 1956 Unknown [id number] 2.16.8 40.1.354038.3.579.2.647 1956 Unknown [id number] 2.16.8 40.1.793323.3.579.2.647 1956 Unknown [id number] 2.16.8 40.1.788809.3.579.2.647 1956 Unknown [id number] 2.16.8 40.1.508993.3.579.2.647 1956 Unknown [id number] 2.16.8 40.1.065680.3.579.2.647 1956 Unknown [id number] 2.16.84 0.1.798910.3.579.2.593 1956 Unknown [id number] 2.16.84 0.1.892198.3.579.2.593 1956 Unknown [id number] 2.16.84 0.1.521197.3.579.2.593 1956 Unknown [id number] 2.16.84 0.1.972884.3.579.2.593 1956 Unknown [id number] 2.16.84 0.1.275248.3.579.2.593 1956 Unknown [id number] 2.16.84 0.1.622220.3.579.2.593 1956 Unknown [id number] 2.16.84 0.1.641421.3.579.2.593 1956 Unknown [id number] 2.16.84 0.1.495797.3.579.2.593 1956 Unknown [id number] 2.16.84 0.1.438819.3.579.2.593 1956 Unknown [id number] 2.16.84 0.1.332403.3.579.2.593 1956 Unknown [id number] 2.16.84 0.1.361702.3.579.2.593 1956 Unknown [id number] 2.16.84 0.1.999404.3.579.2.593 1956 Unknown [id number] 2.16.84 0.1.280347.3.579.2.593 1956 Unknown [id number] 2.16.84 0.1.075994.3.579.2.593 1956 Unknown [id number] 2.16.84 0.1.661557.3.579.2.593 1956 Unknown [id number] 2.16.84 0.1.931028.3.579.2.1259 1956 Unknown [id number] 2.16.840 .1.325328.3.579.2.1259 1956 Unknown [id number] 2.16.840 .1.652344.3.579.2.1259 1956 Unknown [id number] 2.16.840 .1.960461.3.579.2.1259 Unknown [id number] 2.16.84 0.1.131041.3.579.2.593 Unknown Amy BC/BS [id number] Social History Date Type Detail Facility Unknown if ever smoked [facility] Other Sex Assigned At Sex Assigned At Bir th [employer] [facility] Other Start: 08-30-2023 Tobacco smoking status NHIS Never smoked tobacco (finding) [facility] Start: 1955 Sex Assigned At Female F [facility] Clinical Notes 11-10-2007 to 12-18-2023 Note Date & Type Note Facility 12-18-2023 Note Will review by phone today with Dr. Negro Vivas tac level 3.9 for 2 consecutive months and if any dose changes, will notify this pt and amend this note. Most recent IR tacrolimus dosing on record is 0.5mg BID [facility] 12-09-2023 Note Prior auth for Mycop henolate was submitted via [facility] Approved- scanned into media Keycode: [id number] [facility] 11-26-2023 Note Prior auth submitted via [facility] Case: [id number], Status: Approved, Coverage Starts on: 08/27/2023 12:00:00 AM, Coverage Ends on: 11/25/2024 12:00:00 AM Keycode: [id number] [facility] 09-23-2023 Note 09/23/23 Chief Complaint Patient presents with Kidney Follow-up Pt has been having sores in her mouth for the past month. PCP: Ramon Carroll MD Txp Referring: Preferred Pharmacy: [facility] - [place], [place] - [address] [facility] [address] [id number] [address] [facility] [address] [facility] [id number] [facility] - [place], [place] - [address] [facility] [address] Subjective Visit Vitals BP 139/74 (BP Location: Left arm, Patient Position: Sitting, BP Cuff Size: Adult) Pulse 59 Temp 36.3 ???C (97.3 ???F) (Oral) Resp 18 Ht 1.524 m (5') Wt 58.5 kg (129 lb) SpO2 99% BMI 25.19 kg/m??? OB Status Postmenopausal Smoking Status Never BSA 1.57 m??? No Known Allergies Medication Documentation Review Audit Reviewed by Ester Welsh MA (Dental Hygiene Administrative Assistant) on 09/23/23 at 0859 Medication Order Taking? Sig Documenting Provider Last Dose Status amLODIPine (Norvasc) 5 mg tablet [id number] Yes TAKE 1 TABLET BY MOUTH EVERY DAY Virgil Haynes NP Taking Active amoxicillin (Amoxil) 500 mg capsule [id number] No 1 capsule every 8 (eight) hours. Historical ProviderMD Not Taking Active atorvastatin (Lipitor) 20 mg tablet [id number] Yes TAKE 1 TABLET BY MOUTH EVERY DAY AT BEDTIME Virgil Haynes NP Taking Active baclofen (Lioresal) 10 mg tablet [id number] No Historical ProviderMD Not Taking Active cyanocobalamin (Vitamin B-12) 500 mcg tablet [id number] Yes in the morning. Historical ProviderMD Taking Active magnesium oxide (Mag-Ox) 400 mg (241.3 mg magnesium) tablet [id number] Yes Take 400 mg by mouth in the morning. Historical ProviderMD Taking Active mycophenolate (Myfortic) 180 mg EC tablet [id number] Yes TAKE 4 TABLETS BY MOUTH IN THE MORNING AND AT BEDTIME Patient taking differently: Take 540 mg by mouth in the morning and at bedtime. Doe Bridges MD Taking Active omega-3 fatty acids-fish oil (Fish OiL Extra Strength) 435-880 mg capsule [id number] Yes 1 capsule 1 (one) time each day at the same time. Historical ProviderMD Taking Active PARoxetine (Paxil) 10 mg tablet [id number] Yes Take 10 mg by mouth in the morning. Historical Provider, Taking Active potassium gluconate 595 mg (99 mg) tablet [id number] Yes every 12 (twelve) hours. Historical Provider, Taking Active spironolactone (Aldactone) 25 mg tablet [id number] Yes TAKE 1 TABLET BY MOUTH EVERY DAY Virgil Haynes NP Taking Active tacrolimus (Prograf) 0.5 mg capsule [id number] Yes TAKE ONE CAPSULE BY MOUTH EVERY MORNING AND 1 CAPSULE EVERY NIGHT AT BEDTIME Anthony Kunz MD Taking Active Immunization History Administered Date(s) Administered [employer] Sars-Cov-2 Vaccination 06/07/2020 There is no problem [...] Continue meds and MONTHLY Labs with New [facility] standing Order given today. Follow up 6 months or sooner if needed. See Derm See PCP as scheduled: Dr Carroll. Magic Mouthwash script provided. Chart Review today: 03.17.23 Pt presents visit with . Pt states labs done Last week in [facility] and [place] calling for results. Pt seeing Derm in [place] for lesion: forearm and other lesions. Hx: melanoma PCP: local Dr Khoury (more content not included)... [facility] 03-27-2023 Evaluation note Encounter Date Diagnosis Assessment Notes Feb, Contact with and (suspected) exposure to covid-19 (ICD-10 - Z20.822) Feb, Viral URI (ICD-10 - J06.9) Advised patient that COVID/Influenza A/B/RSV test and rapid Strep test was negative today. Advised patient that will treat as viral URI. Supportive care as directed, increase fluids and rest, Tylenol as directed, rx of [place], cool mist humidifier, throat lozenges. Discussed infection [...] condition. Feb, Sore throat (ICD-10 - J02.9) [facility] Other 12-18-2023 Note03/17/23 Chief Complaint Patient presents with Kidney Follow-up Patient would like to know if Virgil would prescribe depression medication. PCP: Ramon Carroll MD Txp Referring: Preferred Pharmacy: [facility] - [place], [place] - [address] [facility] [address] [id number] - [place], [place] [address] [facility] [phone] [facility] [place], [place] - [address] [facility] [address] Subjective Visit Vitals BP 142/80 (BP Location: Right arm, Patient Position: Sitting) Pulse 63 Temp 36.3 ???C (97.4 ???F) (Oral) Ht 1.524 m (5') Wt 60.6 kg (133 lb 9.6 oz) BMI 26.09 kg/m??? Smoking Status Never BSA 1.6 m??? No Known Allergies Medication Documentation Review Audit Reviewed by Flakita Lagos MA (Dental Hygiene Administrative Assistant) on 03/17/23 at 0956 Medication Order Taking? Sig Documenting Provider Last Dose Status amLODIPine (Norvasc) 5 mg tablet [id number] Yes TAKE 1 TABLET BY MOUTH EVERY DAY Virgil Haynes NP Taking Active amoxicillin (Amoxil) 500 mg capsule [id number] No 1 capsule every 8 (eight) hours. Yasmin Mancia MD Not Taking Active atorvastatin (Lipitor) 20 mg tablet [id number] Yes TAKE 1 TABLET BY MOUTH EVERY DAY AT BEDTIME Virgil Haynes NP Taking Active baclofen (Lioresal) 10 mg tablet [id number] Yes Yasmin Mancia MD Taking Active cyanocobalamin (Vitamin B-12) 500 mcg tablet [id number] No in the morning. Yasmin Mancia MD Not Taking Active magnesium oxide (Mag-Ox) 400 mg (241.3 mg magnesium) tablet [id number] Yes Take 400 mg by mouth in the morning. Yasmin Mancia MD Taking Active mycophenolate (Myfortic) 180 mg EC tablet [id number] Yes TAKE 4 TABLETS BY MOUTH IN THE MORNING AND AT BEDTIME Doe Bridges MD Taking Active omega-3 fatty acids-fish oil (Fish OiL Extra Strength) 435-880 mg capsule [id number] No 1 capsule 1 (one) time each day at the same time. Yasmin Mancia MD Not Taking Active PARoxetine (Paxil) 10 mg tablet [id number] Yes Take 10 mg by mouth in the morning. Yasmin Mancia MD Taking Active potassium gluconate 595 mg (99 mg) tablet [id number] No every 12 (twelve) hours. Yasmin Mancia MD Not Taking Active spironolactone (Aldactone) 25 mg tablet [id number] Yes TAKE 1 TABLET BY MOUTH EVERY DAY Virgil Haynes NP Taking Active tacrolimus (Prograf) 0.5 mg capsule [id number] Yes TAKE ONE CAPSULE BY MOUTH EVERY [...] Pt states labs done Last week in [facility] and [place] calling [place] results. Pt seeing Derm in [place] for lesion: forearm and other lesions. Hx: [...] Hgb. Pt AGAIN instructed to use our [facility] Transplant standing order for her monthly labs. Pt reports B/P stable at home Discussed hydration PLan of Care: Continue meds and MONTHLY Labs with [facility] standing Order. Follow up 6 [...] ; Creat 0.9 ; (more content not included)...[facility]10-18-2023 Note Reviewed Ext Tac 3.6 over the phone with Dr. Vivas, per phone order no changes at this time.[facility]10-15-2022 Evaluation note* Encounter Date Diagnosis Assessment [...] understanding and is agreeable with treatment plan [facility] Other 09-30-2022 Evaluation note* Encounter Date Diagnosis [...] no improvement in 2 to 3 days. [facility] Other 09-27-2022 Evaluation note* Encounter Date Diagnosis [...] treatment plan. 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 Medical History hypertension Medical History kidney transplant Surgical History resection of superior cervical mass 11/10/07 Surgical History Teeth extraction in preparation for renal transplant Surgical History portacath placement Surgical History kidney transplant 2013 Hospitalization History see above [facility] Other Evaluation noteNort Screen[place] Other Evaluation note* Diagnosis Onset Date Resolution Status Thrush, oral acute Sore throat noneactive [facility] Work Phone: History general [facility] - [facility] Other Summary Purpose Family History No Family [...] and content) DATE CREATED AUTHOR 01/30/2018 [facility] DATE CREATED AUTHOR AUTHOR'S ORGANIZ ATION 08/17/2021 [facility] DATE CREATED AUTHOR AUTHOR'S ORGANIZ ATION 08/13/2022 [facility] DATE CREATED AUTHOR AUTHOR'S ORGANIZ ATION 09/03/2023 [facility] DATE CREATED AUTHOR AUTHOR'S ORGANIZ ATION 12/20/2023 [facility] REASON FOR VISIT (unrecogniz ed section and content) DYSURIADYSURIADYSURIAPOSS RA SH ON BACK, ITCHINGDODGE JOURNEY, SORE THROAT, COUGHBLACK DODGE JOURNT SORE THROATIN CAR, MOUTH SORES, CALL [phone] THROAT, COUGHING, DRAINAGE Care Teams (unrecognized sec [...] BE BASED ON THE PRIMARY CLINICAL RECORDS. [employer] provides no warranty or guarantee of the accuracy or completeness of information in this document.
--- OUTSIDE RECORDS SUMMARY | 2024-01-14 06:43 | XMS_ITS | CCD ---
Author Organization [facility] Inform ion [facility] Care Team Providers Care Foley Artist Name Role Phone ONONDAGA, DINKAR Unavailable Unavailable ONONDAGA, DINKAR Unavailable Unavailable CARROLL, RAMON Unavailable Unavailable [...] Unavailable Unavailable CARROLL, RAMON Unavailable Unavailable RATNAM, ROSLAINDA Unavailable Unavailable RATNAM, ROSALINDA Unavailable Unavailable RATNAM, [...] Attending Unavailable MISC, DR OBRIEN Admitting Unavailable ONONDAGA, DR CONNORS Consulting Unavailable CARROLL, DR DARBY Primary Care Unavailable MISC, DR OBRIEN Attending Unavailable MISC, DR OBRIEN Admitting Unavailable MISC, DR OBRIEN Attending Unavailable MISC, DR OBRIEN Admitting Unavailable MISC, DR OBRIEN Consulting Unavailable CARROLL, DR DARBY Primary Care Unavailable ONONDAGA, DR CONNORS Consulting Unavailable ONONDAGA, DR CONNORS Attending Unavailable CARROLL, DR DARBY Primary Care Unavailable ONONDAGA, DR CONNORS Admitting Unavailable ONONDAGA, DR CONNORS Attending Unavailable CARROLL, DR DARBY Primary Care Unavailable ONONDAGA, DR CONNORS Admitting Unavailable ONONDAGA, DR CONNORS Consulting Unavailable MISC, DR OBRIEN [...] Unavailable CARROLL, DR DARBY Primary Care Unavailable ONONDAGA, DR CONNORS Consulting Unavailable ONONDAGA, DR CONNORS Attending Unavailable CARROLL, DR DARBY Primary Care Unavailable ONONDAGA, DR CONNORS Admitting Unavailable MISC, DR OBRIEN Attending Unavailable MISC, DR OBRIEN Admitting Unavailable MISC, DR OBRIEN Consulting Unavailable CARROLL, DR DARBY Primary Care Unavailable MISC, DOCTOR Attending Unavailable MISC, DR OBRIEN Admitting Unavailable MISC, DR OBRIEN Consulting Unavailable DR RAMON CARROLL Primary Care Unavailable ONONDAGA, DR CONNORS Consulting Unavailable ONONDAGA, DR CONNORS Attending Unavailable ONONDAGA, DR CONNORS Admitting Unavailable GLEN, DR DARBY Primary Care Unavailable RAMON CARROLL Attending Unavailable ESTER PADILLA Attending Unavailable ESTER PADILLA Attending Unavailable ESTER PADILLA Attending Unavailable VIRGIL HAYNES Attending Unavailable VIRGIL HAYNES Attending Unavailable Medications Current Medications Medication Drug Class(es) Dates Sig (Normalized) Sig (Original) [id number] 200 actuat albuterol 0.09 mg/actuat metered dose [...] 1.5 mg/ml oral solution (1 source) Uncompetitive N-ngdlyo-B-asparta te Receptor Antagonist, Sigma-1 Agonist Start: 03-27-2023 take 10 mL by mouth every eight hours [place] DM 7.5-7.5 MG/5ML 10 mL Orally every 8 hours for 5 days Feb, Active ergocalciferol 1.25 mg oral capsule (9 sources) Provitamin D2 Compound Start: 06-27-2011 take 1 capsule by mouth every week Vitamin D (Ergocalciferol) 58265 UNIT 1 capsule Orally Once a Week [...] August 30, 2023 12:00am swish and swallow [place] 9-Szc-Ngv-Fish Oil (Fish Oil) 1,000 mg (120 mg-180 mg) capsule (1 source) Start: 08-30-2023 take 1 capsule by mouth once daily [place] 6-Hks-Osz-Fish Oil (Fish Oil) 1,000 mg (120 mg-180 [...] take 1 capsule by mo [facility] every eight hours Tessalon Perles 100 MG [...] 03-27-2017 Episodic Other aftercare (2 sources) Other long-term (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 therapy; Translations: [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] Onset: 02-26-2017 Episodic Other [...] Interpretation Reference Range Facility Documentationon 12-09-2023 Documentation [id number] Tanika Grimm 1955 F Date Provider Department Center 12/09/2023 FERNANDA MARVIN TXGely None Family History Family Status - Relation Status Age at Mother Father Reason for Visit and Comments: Prior auth : Mycophenolate [Other] [facility] Documentationon 11-26-2023 Documentation [id number] Tanika Grimm 1955 F Date Provider Department Center 11/26/2023 86GARRETTAURELIOFERNANDA TXGely None Family History Family Status - Relation Status Age at Mother Father Reason for Visit and Comments: Prior auth Tac 0.5mg [Other] [facility] Documentationon 10-27-2023 Documentation [id number] Tanika Grimm 1955 Date Provider Department Center 10/27/2023 750-ANEL MIRANDA TXP None Family History Family Status - Relation Status Age at Mother Father [facility] 29on 09-23-2023 29 Addended by: DIANE LE on: 09/23/2023 03:27 PM Modules accepted: Orders [facility] Follow-Upon 09-23-2023 Follow-Up [id number] Tanika Grimm 1955 Provider Department Center 09/23/2023 124-VIRGIL HAYNES TXGely None Family History Family Status - Relation Status Age at Mother Father Level of Service:72829 [place] OFFICE/OUTPATIENT ESTABLISHED MOD MDM 30 MIN Reason for Visit and Comments: Kidney Follow-up [] - Pt has been having sores in her mouth for the past month. [facility] No Panel InformationOrdered By: Lindsay Soria on 08-30-2023 Quick Strep (POC) [facility] Documentationon 08-26-2023 Documentation [id number] Tanika Grimm 1955 F Date Provider Department Center 08/26/2023 750-ANEL MIRANDA TXP None No family history on file [facility] Documentationon 05-19-2023 Documentation [id number] Tanika Grimm 1955 Date Provider Department Center 05/19/2023 750-ANEL MIRANDA TXP None No family history on file [facility] COVID/FLU/RSV RT-PCRon 03-27 SARS-CoV-2 (COVID-19) RNA MURALI+probe Ql (Unsp spec) Negative [facility] Pre[facility] Other COVID/FLU/RSV RT-PCR Negative [facility] Pre[facility] Other Quick Strepon 03-27-2023 S. pyogenes Org specific cx Ql (Throat) Negative [facility] Pre[facility] Other Quick Strep [facility] Pre[facility] Other 29on 03-17-2023 29 Addended by: FLAKITA LAGOS on: 03/17/2023 11:44 AM Modules accepted: Orders [facility] Follow-Upon 03-17-2023 Follow-Up [id number] Tanika Grimm 1955 Provider Department Center 03/17/2023 124-VIRGIL HAYNES TXP None No family history on file Level of Service:75845 [place] OFFICE/OUTPATIENT ESTABLISHED LOW MDM 20 MIN Reason for Visit and Comments: Kidney Follow-up [[id number]] - Patient would like to know if Virgil would prescribe depression medication. [facility] 36on 01-31-2023 36 Transplant Pharmacis [...] need for taper. The patient's verbalized understanding. Pre K Lead Teacher added medication to med list. The patient's stated patient will be getting a DEXA scan and recommended to not have calcium 3 days before. Reviewed medication list for any products containing calcium - no medications found. No other questions or concerns at this time. Normal [facility] Telephoneon 01-31-2023 Telephone [id number] Tanika Grimm 1955 F Date Provider Department [place] [facility] No family history on file Reason for Visit and Comments: Transplant Pharmacist - Drug Information [[id number]] Normal [facility] BILIRUBIN CONJUGATED (DIRECT )on 08-12-2022 BILI, CONJUGATED 0.1 mg/dL Normal 0.0-0.2 [facility] Comment on above: Performed By: #### D DAVIDSON, MG, PHOS, CMP, LIPID, URIC #### [facility] [address] [place] [address] Dr. Sarmad Patino GLYCOHEMOGLOBIN A1Con 2022 ADA RECOMMENDATION SEE BELOW Normal [facility] Comment on above: Result Comment: ADA RECOMMENDED LIMIT 4.0 - 6.0 ADA THERAPEUTIC TARGET < 7.0 ACTION SUGGESTED > 7.0 Performed By: #### D DAVIDSON, MG, PHOS, CMP, LIPID, URIC #### [facility] [address] [address] [address] Sarmad Patino Glucose [Mass/Vol] 108 mg/dL Normal [facility] Comment on above: Performed By: #### D DAVIDSON, MG, PHOS, CMP, LIPID, URIC #### [facility] [address] [address] [address] Sarmad Patino HbA1c (Bld) [Mass fraction] 5.4 % Normal 4.5-6.2 [facility] Comment on above: Performed By: #### D DAVIDSON, MG, PHOS, CMP, LIPID, URIC #### [facility] [address] [place] [address] Dr. Sarmad Patino MAGNESIUMon 08-12-2022 Magnesium [Mass/Vol] 1.7 mg/dL Critically low 1.8-2.4 [facility] Comment on above: Performed By: #### D DAVIDSON, MG, PHOS, CMP, LIPID, URIC #### [facility] [address] [place] [address] Dr. Sarmad Patino PHOSPHORUSon 08-12-2022 Phosphate [Mass/Vol] 3.9 mg/dL Normal 2.6-4.7 [facility] Comment on above: Performed By: #### U MAXI, LIPID, MG, CMP, DBIL, PHOS #### [facility] [address] [place] [address] Dr. Sarmad Patino PROF 14(COMP METB)on 023 Albumin [Mass/Vol] 3.9 g/dL Normal 3.4-5.0 [facility] Comment on above: Performed By: #### D DAVIDSON, MG, PHOS, CMP, LIPID, URIC #### [facility] [address] [place] [address] Dr. Sarmad Patino Albumin/Globulin [Mass ratio] 1.2 {ratio} Normal [facility] Comment on above: Performed By: #### D DAVIDSON, MG, PHOS, CMP, LIPID, URIC #### [facility] [address] [place] [address] Dr. Sarmad Patino ALP [Catalytic activity/Vol] 126 U/L Critically high 46-116 [facility] Comment on above: Performed By: #### D DAVIDSON, MG, PHOS, CMP, LIPID, URIC #### [facility] [address] [place] [address] Dr. Sarmad Patino ALT [Catalytic activity/Vol] 18 U/L Normal 14-59 [facility] Comment on above: Performed By: #### D DAVIDSON, MG, PHOS, CMP, LIPID, URIC #### [facility] [address] [place] [address] Dr. Sarmad Patino Anion gap [Moles/Vol] 10.4 mmol/L Normal [facility] Comment on above: Performed By: #### D DAVIDSON, MG, PHOS, CMP, LIPID, URIC #### [facility] [address] [place] [address] Dr. Sarmad Patino AST [Catalytic activity/Vol] 14 U/L Critically low 15-37 [facility] Comment on above: Performed By: #### D DAVIDSON, MG, PHOS, CMP, LIPID, URIC #### [facility] [address] [place] [address] Dr. Sarmad Patino Bilirubin [Mass/Vol] 0.7 mg/dL Normal 0.2-1.0 [facility] Comment on above: Performed By: #### D DAVIDSON, MG, PHOS, CMP, LIPID, URIC #### [facility] [address] [address] [address] Sarmad Patino Calcium [Mass/Vol] 9.8 mg/dL Normal 8.5-10.1 [facility] Comment on above: Performed By: #### D DAVIDSON, MG, PHOS, CMP, LIPID, URIC #### [facility] [address] [place] [address] Dr. Sarmad Patino Chloride [Moles/Vol] 106 mmol/L Normal 98-107 [facility] Comment on above: Performed By: #### D DAVIDSON, MG, PHOS, CMP, LIPID, URIC #### [facility] [address] [address] [address] Sarmad Patino CO2 [Moles/Vol] 32.1 mmol/L Critically high 21.0-32.0 [facility] Comment on above: Performed By: #### D DAVIDSON, MG, PHOS, CMP, LIPID, URIC #### [facility] [address] [place] [address] Dr. Sarmad Patino Creatinine [Mass/Vol] 0.92 mg/dL Normal 0.55-1.02 [facility] Comment on above: Performed By: #### D DAVIDSON, MG, PHOS, CMP, LIPID, URIC #### [facility] [address] [place] [address] Dr. Sarmad Patino EGFR-AF EQUATORIAL GUINEAN >60 Normal >=60 [facility] Comment on above: Performed By: #### D DAVIDSON, MG, PHOS, CMP, LIPID, URIC #### [facility] [address] [place] [address] Dr. Sarmad Patino EGFR-NON AF EQUATORIAL GUINEAN >60 Normal >=60 [facility] Comment on above: Performed By: #### D DAVIDSON, MG, PHOS, CMP, LIPID, URIC #### [facility] [address] [place] [address] Dr. Sarmad Patino Globulin (S) [Mass/Vol] 3.3 g/dL Normal [facility] Comment on above: Performed By: #### D DAVIDSON, MG, PHOS, CMP, LIPID, URIC #### [facility] [address] [place] [address] Dr. Sarmad Patino Glucose [Mass/Vol] 102 mg/dL Normal 74-106 [facility] Comment on above: Performed By: #### D DAVIDSON, MG, PHOS, CMP, LIPID, URIC #### [facility] [address] [place] [address] Dr. Sarmad Patino Potassium [Moles/Vol] 4.5 mmol/L Normal 3.5-5.1 [facility] Comment on above: Performed By: #### D DAVIDSON, MG, PHOS, CMP, LIPID, URIC #### [facility] [address] [address] [address] Sarmad Patino Protein [Mass/Vol] 7.2 g/dL Normal 6.4-8.2 [facility] Comment on above: Performed By: #### D DAVIDSON, MG, PHOS, CMP, LIPID, URIC #### [facility] [address] [address] [address] Sarmad Patino Sodium [Moles/Vol] 144 mmol/L Normal 136-145 [facility] Comment on above: Performed By: #### D DAVIDSON, MG, PHOS, CMP, LIPID, URIC #### [facility] [address] [place] [address] Dr. Sarmad Patino Urea nitrogen [Mass/Vol] 20.0 mg/dL Critically high 7.0-18.0 [facility] Comment on above: Performed By: #### D DAVIDSON, MG, PHOS, CMP, LIPID, URIC #### [facility] [address] [place] [address] Dr. Sarmad Patino Urea nitrogen/Creatinine [Mass ratio] 21.7 mg/mg Normal [facility] Comment on above: Performed By: #### D DAVIDSON, MG, PHOS, CMP, LIPID, URIC #### [facility] [address] [address] [address] Sarmad Patino URIC ACID SERUMon 08-12-2022 Urate [Mass/Vol] 5.2 mg/dL Normal 2.6-6.0 [facility] Comment on above: Performed By: #### D DAVIDSON, MG, PHOS, CMP, LIPID, URIC #### [facility] [address] [address] [address] Sarmad Patino MG MAMM SCREEN 3D DAVIDSON CADon 07-23-2022 MG MAMM SCREEN 3D DAVIDSON CAD Patient: TANIKA GRIMM Exam Date: 07/23/2022 : 1955 Gender:F Ordering : DR RAMON CARROLL M.D. Admission #: [id number] Family : Order #: [id number] CLICK HERE TO VIEW EXAM RADIOLOGY REPORT [...] Treatments None Family Cancers None LOCATION: [facility] BREAST COMPOSITION: Extremely dense, which [...] M.D. on 07/23/2022 at 16:59 Normal [facility] FK506 (TACROLIMUS) WHOLE BLO ODon 07-10-2022 Tacrolimus (FK506), Blood 3.8 ng/mL Normal 2.0-20.0 [facility] Comment on above: Result Comment: Trou gh (immediately following transplant) 15.0 . Trough (steady state, 2 weeks or more after transplant): 3.0 - 8.0 . Performed by LC-MS/MS technology. Performed By: #### D DAVIDSON, MG, PHOS, CMP, LIPID, URIC #### [facility] [address] [address] [address] Sarmad Patino BILIRUBIN CONJUGATED (DIRECT )on 07-08-2022 BILI, CONJUGATED 0.1 mg/dL Normal 0.0-0.2 [facility] Comment on above: Performed By: #### U MAXI, LIPID, MG, CMP, DBIL, PHOS #### [facility] [address] [address] [address] Sarmad Patino GLYCOHEMOGLOBIN A1Con 2022 ADA RECOMMENDATION SEE BELOW Normal [facility] Comment on above: Result Comment: ADA RECOMMENDED LIMIT 4.0 - 6.0 ADA THERAPEUTIC TARGET < 7.0 ACTION SUGGESTED > 7.0 Performed By: #### D DAVIDSON, MG, PHOS, CMP, LIPID, URIC #### [facility] [address] [address] [address] Sarmad Patino Glucose [Mass/Vol] 105 mg/dL Normal [facility] Comment on above: Performed By: #### D DAVIDSON, MG, PHOS, CMP, LIPID, URIC #### [facility] [address] [address] [address] Sarmad Patino HbA1c (Bld) [Mass fraction] 5.3 % Normal 4.5-6.2 [facility] Comment on above: Performed By: #### D DAVIDSON, MG, PHOS, CMP, LIPID, URIC #### [facility] [address] [address] [address] Sarmad Patino MAGNESIUMon 07-08-2022 Magnesium [Mass/Vol] 1.8 mg/dL Normal 1.8-2.4 [facility] Comment on above: Performed By: #### U MAXI, LIPID, MG, CMP, DBIL, PHOS #### [facility] [address] [place] [address] Dr. Sarmad Patino PHOSPHORUSon 07-08-2022 Phosphate [Mass/Vol] 3.8 mg/dL Normal 2.6-4.7 [facility] Comment on above: Performed By: #### U MAXI, LIPID, MG, CMP, DBIL, PHOS #### [facility] [address] [place] [address] Dr. Sarmad Patino PROF 14(COMP METB)on 023 Albumin [Mass/Vol] 3.7 g/dL Normal 3.4-5.0 [facility] Comment on above: Performed By: #### U MAXI, LIPID, MG, CMP, DBIL, PHOS #### [facility] [address] [place] [address] Dr. Sarmad Patino Albumin/Globulin [Mass ratio] 1.1 {ratio} Normal [facility] Comment on above: Performed By: #### U MAXI, LIPID, MG, CMP, DBIL, PHOS #### [facility] [address] [place] [address] Dr. Sarmad Patino ALP [Catalytic activity/Vol] 124 U/L Critically high 46-116 [facility] Comment on above: Performed By: #### U MAXI, LIPID, MG, CMP, DBIL, PHOS #### [facility] [address] [place] [address] Dr. Sarmad Patino ALT [Catalytic activity/Vol] 20 U/L Normal 14-59 [facility] Comment on above: Performed By: #### U MAXI, LIPID, MG, CMP, DBIL, PHOS #### [facility] [address] [place] [address] Dr. Sarmad Patino Anion gap [Moles/Vol] 11.5 mmol/L Normal [facility] Comment on above: Performed By: #### U MAXI, LIPID, MG, CMP, DBIL, PHOS #### [facility] [address] [place] [address] Dr. Sarmad Patino AST [Catalytic activity/Vol] 12 U/L Critically low 15-37 [facility] Comment on above: Performed By: #### U MAXI, LIPID, MG, CMP, DBIL, PHOS #### [facility] [address] [place] [address] Dr. Sarmad Patino Bilirubin [Mass/Vol] 0.5 mg/dL Normal 0.2-1.0 [facility] Comment on above: Performed By: #### U MAXI, LIPID, MG, CMP, DBIL, PHOS #### [facility] [address] [place] [address] Dr. Sarmad Patino Calcium [Mass/Vol] 9.6 mg/dL Normal 8.5-10.1 [facility] Comment on above: Performed By: #### U MAXI, LIPID, MG, CMP, DBIL, PHOS #### [facility] [address] [place] [address] Dr. Sarmad Patino Chloride [Moles/Vol] 106 mmol/L Normal 98-107 [facility] Comment on above: Performed By: #### U MAXI, LIPID, MG, CMP, DBIL, PHOS #### [facility] [address] [place] [address] Dr. Sarmad Patino CO2 [Moles/Vol] 29.7 mmol/L Normal 21.0-32.0 [facility] Comment on above: Performed By: #### U MAXI, LIPID, MG, CMP, DBIL, PHOS #### [facility] [address] [place] [address] Dr. Sarmad Patino Creatinine [Mass/Vol] 0.77 mg/dL Normal 0.55-1.02 [facility] Comment on above: Performed By: #### U MAXI, LIPID, MG, CMP, DBIL, PHOS #### [facility] [address] [place] [address] Dr. Sarmad Patino EGFR-AF EQUATORIAL GUINEAN >60 Normal >=60 [facility] Comment on above: Performed By: #### U MAXI, LIPID, MG, CMP, DBIL, PHOS #### [facility] [address] [address] [address] Sarmad Patino EGFR-NON AF EQUATORIAL GUINEAN >60 Normal >=60 [facility] Comment on above: Performed By: #### U MAXI, LIPID, MG, CMP, DBIL, PHOS #### [facility] [address] [place] [address] Dr. Sarmad Patino Globulin (S) [Mass/Vol] 3.4 g/dL Normal [facility] Comment on above: Performed By: #### U MAXI, LIPID, MG, CMP, DBIL, PHOS #### [facility] [address] [place] [address] Dr. Sarmad Patino Glucose [Mass/Vol] 97 mg/dL Normal 74-106 [facility] Comment on above: Performed By: #### U MAXI, LIPID, MG, CMP, DBIL, PHOS #### [facility] [address] [place] [address] Dr. Sarmad Patino Potassium [Moles/Vol] 4.2 mmol/L Normal 3.5-5.1 [facility] Comment on above: Performed By: #### U MAXI, LIPID, MG, CMP, DBIL, PHOS #### [facility] [address] [place] [address] Dr. Sarmad Patino Protein [Mass/Vol] 7.1 g/dL Normal 6.4-8.2 [facility] Comment on above: Performed By: #### U MAXI, LIPID, MG, CMP, DBIL, PHOS #### [facility] [address] [place] [address] Dr. Sarmad Patino Sodium [Moles/Vol] 143 mmol/L Normal 136-145 [facility] Comment on above: Performed By: #### U MAXI, LIPID, MG, CMP, DBIL, PHOS #### [facility] [address] [place] [address] Dr. Sarmad Patino Urea nitrogen [Mass/Vol] 26.0 mg/dL Critically high 7.0-18.0 [facility] Comment on above: Performed By: #### U MAXI, LIPID, MG, CMP, DBIL, PHOS #### [facility] [address] [place] [address] Dr. Sarmad Patino Urea nitrogen/Creatinine [Mass ratio] 33.8 mg/mg Normal [facility] Comment on above: Performed By: #### U MAXI, LIPID, MG, CMP, DBIL, PHOS #### [facility] [address] [place] [address] Dr. Sarmad Patino URIC ACID SERUMon 07-08-2022 Urate [Mass/Vol] 4.7 mg/dL Normal 2.6-6.0 [facility] Comment on above: Performed By: #### U MAXI, LIPID, MG, CMP, DBIL, PHOS #### [facility] [address] [place] [address] Dr. Sarmad Patino FK506 (TACROLIMUS) WHOLE BLO ODon 06-13-2022 Tacrolimus (FK506), Blood 3.0 ng/mL Normal 2.0-20.0 [facility] Comment on above: Result Comment: Trou gh (immediately following transplant) 15.0 . Trough (steady state, 2 weeks or more after transplant): 3.0 - 8.0 . Performed by LC-MS/MS technology. Performed By: #### D DAVIDSON, MG, PHOS, CMP, LIPID, URIC #### [facility] [address] [place] [address] Dr. Sarmad Patino BK VIRUS PCR QUANTon 023 BKV DNA QUANT PCR PLASMA Negative Normal Negative [facility] Comment on above: Result Comment: No B K DNA detected. . The linear range of the assay is 22 - 100,000,000 IU/mL. Performed By: #### B KVIRUS #### [facility] [address] [place] [address] Dr. Sarmad Patino Log10 BKV DNA Plasma Normal [facility] Comment on above: Performed By: #### B KVIRUS #### [facility] [address] [place] [address] Dr. Sarmad Patino BILIRUBIN CONJUGATED (DIRECT )on 06-10-2022 BILI, CONJUGATED 0.1 mg/dL Normal 0.0-0.2 [facility] Comment on above: Performed By: #### U MAXI, LIPID, MG, CMP, DBIL, PHOS #### [facility] [address] [address] [address] Sarmad Patino GLYCOHEMOGLOBIN A1Con 2022 ADA RECOMMENDATION SEE BELOW Normal [facility] Comment on above: Result Comment: ADA RECOMMENDED LIMIT 4.0 - 6.0 ADA THERAPEUTIC TARGET < 7.0 ACTION SUGGESTED > 7.0 Performed By: #### D DAVIDSON, MG, PHOS, CMP, LIPID, URIC #### [facility] [address] [address] [address] Sarmad Patino Glucose [Mass/Vol] 114 mg/dL Normal [facility] Comment on above: Performed By: #### D DAVIDSON, MG, PHOS, CMP, LIPID, URIC #### [facility] [address] [place] [address] Dr. Sarmad Patino HbA1c (Bld) [Mass fraction] 5.6 % Normal 4.5-6.2 [facility] Comment on above: Performed By: #### D DAVIDSON, MG, PHOS, CMP, LIPID, URIC #### [facility] [address] [address] [address] Sarmad Patino MAGNESIUMon 06-10-2022 Magnesium [Mass/Vol] 1.6 mg/dL Critically low 1.8-2.4 [facility] Comment on above: Performed By: #### U MAXI, LIPID, MG, CMP, DBIL, PHOS #### [facility] [address] [address] [address] Sarmad Patino PROF 14(COMP METB)on 023 Albumin [Mass/Vol] 3.7 g/dL Normal 3.4-5.0 [facility] Comment on above: Performed By: #### U MAXI, LIPID, MG, CMP, DBIL, PHOS #### [facility] [address] [place] [address] Dr. Sarmad Patino Albumin/Globulin [Mass ratio] 1.1 {ratio} Normal [facility] Comment on above: Performed By: #### U MAXI, LIPID, MG, CMP, DBIL, PHOS #### [facility] [address] [place] [address] Dr. Sarmad Patino ALP [Catalytic activity/Vol] 142 U/L Critically high 46-116 [facility] Comment on above: Performed By: #### U MAXI, LIPID, MG, CMP, DBIL, PHOS #### [facility] [address] [address] [address] Sarmad Patino ALT [Catalytic activity/Vol] 29 U/L Normal 14-59 [facility] Comment on above: Performed By: #### U MAXI, LIPID, MG, CMP, DBIL, PHOS #### [facility] [address] [place] [address] Dr. Sarmad Patino Anion gap [Moles/Vol] 11.1 mmol/L Normal [facility] Comment on above: Performed By: #### U MAXI, LIPID, MG, CMP, DBIL, PHOS #### [facility] [address] [place] [address] Dr. Sarmad Patino AST [Catalytic activity/Vol] 19 U/L Normal 15-37 [facility] Comment on above: Performed By: #### U MAXI, LIPID, MG, CMP, DBIL, PHOS #### [facility] [address] [place] [address] Dr. Sarmad Patino Bilirubin [Mass/Vol] 0.6 mg/dL Normal 0.2-1.0 [facility] Comment on above: Performed By: #### U MAXI, LIPID, MG, CMP, DBIL, PHOS #### [facility] [address] [place] [address] Dr. Sarmad Patino Calcium [Mass/Vol] 9.8 mg/dL Normal 8.5-10.1 [facility] Comment on above: Performed By: #### U MAXI, LIPID, MG, CMP, DBIL, PHOS #### [facility] [address] [place] [address] Dr. Sarmad Patino Chloride [Moles/Vol] 103 mmol/L Normal 98-107 [facility] Comment on above: Performed By: #### U MAXI, LIPID, MG, CMP, DBIL, PHOS #### [facility] [address] [place] [address] Dr. Sarmad Patino CO2 [Moles/Vol] 30.7 mmol/L Normal 21.0-32.0 [facility] Comment on above: Performed By: #### U MAXI, LIPID, MG, CMP, DBIL, PHOS #### [facility] [address] [place] [address] Dr. Sarmad Patino Creatinine [Mass/Vol] 0.79 mg/dL Normal 0.55-1.02 [facility] Comment on above: Performed By: #### U MAXI, LIPID, MG, CMP, DBIL, PHOS #### [facility] [address] [place] [address] Dr. Sarmad Patino EGFR-AF EQUATORIAL GUINEAN >60 Normal >=60 [facility] Comment on above: Performed By: #### U MAXI, LIPID, MG, CMP, DBIL, PHOS #### [facility] [address] [place] [address] Dr. Sarmad Patino EGFR-NON AF EQUATORIAL GUINEAN >60 Normal >=60 [facility] Comment on above: Performed By: #### U MAXI, LIPID, MG, CMP, DBIL, PHOS #### [facility] [address] [place] [address] Dr. Sarmad Patino Globulin (S) [Mass/Vol] 3.4 g/dL Normal [facility] Comment on above: Performed By: #### U MAXI, LIPID, MG, CMP, DBIL, PHOS #### [facility] [address] [place] [address] Dr. Sarmad Patino Glucose [Mass/Vol] 94 mg/dL Normal 74-106 [facility] Comment on above: Performed By: #### U MAXI, LIPID, MG, CMP, DBIL, PHOS #### [facility] [address] [place] [address] Dr. Sarmad Patino Potassium [Moles/Vol] 3.8 mmol/L Normal 3.5-5.1 [facility] Comment on above: Performed By: #### U MAXI, LIPID, MG, CMP, DBIL, PHOS #### [facility] [address] [place] [address] Dr. Sarmad Patino Protein [Mass/Vol] 7.1 g/dL Normal 6.4-8.2 [facility] Comment on above: Performed By: #### U MAXI, LIPID, MG, CMP, DBIL, PHOS #### [facility] [address] [place] [address] Dr. Sarmad Patino Sodium [Moles/Vol] 141 mmol/L Normal 136-145 [facility] Comment on above: Performed By: #### U MAXI, LIPID, MG, CMP, DBIL, PHOS #### [facility] [address] [place] [address] Dr. Sarmad Patino Urea nitrogen [Mass/Vol] 17.0 mg/dL Normal 7.0-18.0 [facility] Comment on above: Performed By: #### U MAXI, LIPID, MG, CMP, DBIL, PHOS #### [facility] [address] [place] [address] Dr. Sarmad Patino Urea nitrogen/Creatinine [Mass ratio] 21.5 mg/mg Normal [facility] Comment on above: Performed By: #### U MAXI, LIPID, MG, CMP, DBIL, PHOS #### [facility] [address] [place] [address] Dr. Sarmad Patino URIC ACID SERUMon 06-10-2022 Urate [Mass/Vol] 5.1 mg/dL Normal 2.6-6.0 [facility] Comment on above: Performed By: #### U MAXI, LIPID, MG, CMP, DBIL, PHOS #### [facility] [address] [place] [address] Dr. Sarmad Patino BK VIRUS PCR QUANTon 023 BKV DNA QUANT PCR PLASMA Negative Normal Negative [facility] Comment on above: Result Comment: No B K DNA detected. . The linear range of the assay is 22 - 100,000,000 IU/mL. Performed By: #### U MAXI, LIPID, MG, CMP, DBIL, PHOS #### [facility] [address] [place] [address] Dr. Sarmad Patino Log10 BKV DNA Plasma Normal [facility] Comment on above: Performed By: #### U MAXI, LIPID, MG, CMP, DBIL, PHOS #### [facility] [address] [address] [address] Sarmad Patino FK506 (TACROLIMUS) WHOLE BLO ODon 05-13-2022 Tacrolimus (FK506), Blood 4.1 ng/mL Normal 2.0-20.0 [facility] Comment on above: Result Comment: Trou gh (immediately following transplant) 15.0 . Trough (steady state, 2 weeks or more after transplant): 3.0 - 8.0 . Performed by LC-MS/MS technology. Performed By: #### U MAXI, LIPID, MG, CMP, DBIL, PHOS #### [facility] [address] [place] [address] Dr. Sarmad Patino BILIRUBIN CONJUGATED (DIRECT )on 05-10-2022 BILI, CONJUGATED 0.1 mg/dL Normal 0.0-0.2 [facility] Comment on above: Performed By: #### D DAVIDSON, MG, PHOS, CMP, LIPID, URIC #### [facility] [address] [place] [address] Dr. Sarmad Patino GLYCOHEMOGLOBIN A1Con 2022 ADA RECOMMENDATION SEE BELOW Normal [facility] Comment on above: Result Comment: ADA RECOMMENDED LIMIT 4.0 - 6.0 ADA THERAPEUTIC TARGET < 7.0 ACTION SUGGESTED > 7.0 Performed By: #### D DAVIDSON, MG, PHOS, CMP, LIPID, URIC #### [facility] [address] [address] [address] Sarmad Patino Glucose [Mass/Vol] 108 mg/dL Normal [facility] Comment on above: Performed By: #### D DAVIDSON, MG, PHOS, CMP, LIPID, URIC #### [facility] [address] [address] [address] Sarmad Patino HbA1c (Bld) [Mass fraction] 5.4 % Normal 4.5-6.2 [facility] Comment on above: Performed By: #### D DAVIDSON, MG, PHOS, CMP, LIPID, URIC #### [facility] [address] [place] [address] Dr. Sarmad Patino MAGNESIUMon 05-10-2022 Magnesium [Mass/Vol] 1.9 mg/dL Normal 1.8-2.4 [facility] Comment on above: Performed By: #### U MAXI, LIPID, MG, CMP, DBIL, PHOS #### [facility] [address] [place] [address] Dr. Sarmad Patino PROF 14(COMP METB)on 023 Albumin [Mass/Vol] 3.9 g/dL Normal 3.4-5.0 [facility] Comment on above: Performed By: #### D DAVIDSON, MG, PHOS, CMP, LIPID, URIC #### [facility] [address] [place] [address] Dr. Sarmad Patino Albumin/Globulin [Mass ratio] 1.2 {ratio} Normal [facility] Comment on above: Performed By: #### D DAVIDSON, MG, PHOS, CMP, LIPID, URIC #### [facility] [address] [place] [address] Dr. Sarmad Patino ALP [Catalytic activity/Vol] 114 U/L Normal 46-116 [facility] Comment on above: Performed By: #### D DAVIDSON, MG, PHOS, CMP, LIPID, URIC #### [facility] [address] [place] [address] Dr. Sarmad Patino ALT [Catalytic activity/Vol] 18 U/L Normal 14-59 [facility] Comment on above: Performed By: #### D DAVIDSON, MG, PHOS, CMP, LIPID, URIC #### [facility] [address] [place] [address] Dr. Sarmad Patino Anion gap [Moles/Vol] 15.9 mmol/L Normal [facility] Comment on above: Performed By: #### D DAVIDSON, MG, PHOS, CMP, LIPID, URIC #### [facility] [address] [place] [address] Dr. Sarmad Patino AST [Catalytic activity/Vol] 17 U/L Normal 15-37 [facility] Comment on above: Performed By: #### D DAVIDSON, MG, PHOS, CMP, LIPID, URIC #### [facility] [address] [address] [address] Sarmad Patino Bilirubin [Mass/Vol] 0.4 mg/dL Normal 0.2-1.0 [facility] Comment on above: Performed By: #### D DAVIDSON, MG, PHOS, CMP, LIPID, URIC #### [facility] [address] [address] [address] Sarmad Patino Calcium [Mass/Vol] 9.8 mg/dL Normal 8.5-10.1 [facility] Comment on above: Performed By: #### D DAVIDSON, MG, PHOS, CMP, LIPID, URIC #### [facility] [address] [place] [address] Dr. Sarmad Patino Chloride [Moles/Vol] 103 mmol/L Normal 98-107 [facility] Comment on above: Performed By: #### D DAVIDSON, MG, PHOS, CMP, LIPID, URIC #### [facility] [address] [address] [address] Sarmad Patino CO2 [Moles/Vol] 29.2 mmol/L Normal 21.0-32.0 [facility] Comment on above: Performed By: #### D DAVIDSON, MG, PHOS, CMP, LIPID, URIC #### [facility] [address] [place] [address] Dr. Sarmad Patino Creatinine [Mass/Vol] 0.74 mg/dL Normal 0.55-1.02 [facility] Comment on above: Performed By: #### D DAVIDSON, MG, PHOS, CMP, LIPID, URIC #### [facility] [address] [address] [address] Sarmad Patino EGFR-AF EQUATORIAL GUINEAN >60 Normal >=60 [facility] Comment on above: Performed By: #### D DAVIDSON, MG, PHOS, CMP, LIPID, URIC #### [facility] [address] [place] [address] Dr. Sarmad Patino EGFR-NON AF EQUATORIAL GUINEAN >60 Normal >=60 [facility] Comment on above: Performed By: #### D DAVIDSON, MG, PHOS, CMP, LIPID, URIC #### [facility] [address] [place] [address] Dr. Sarmad Patino Globulin (S) [Mass/Vol] 3.2 g/dL Normal [facility] Comment on above: Performed By: #### D DAVIDSON, MG, PHOS, CMP, LIPID, URIC #### [facility] [address] [place] [address] Dr. Sarmad Patino Glucose [Mass/Vol] 94 mg/dL Normal 74-106 [facility] Comment on above: Performed By: #### D DAVIDSON, MG, PHOS, CMP, LIPID, URIC #### [facility] [address] [place] [address] Dr. Sarmad Patino Potassium [Moles/Vol] 4.1 mmol/L Normal 3.5-5.1 [facility] Comment on above: Performed By: #### D DAVIDSON, MG, PHOS, CMP, LIPID, URIC #### [facility] [address] [place] [address] Dr. Sarmad Patino Protein [Mass/Vol] 7.1 g/dL Normal 6.4-8.2 [facility] Comment on above: Performed By: #### D DAVIDSON, MG, PHOS, CMP, LIPID, URIC #### [facility] [address] [place] [address] Dr. Sarmad Patino Sodium [Moles/Vol] 144 mmol/L Normal 136-145 [facility] Comment on above: Performed By: #### D DAVIDSON, MG, PHOS, CMP, LIPID, URIC #### [facility] [address] [place] [address] Dr. Sarmad Patino Urea nitrogen [Mass/Vol] 18.0 mg/dL Normal 7.0-18.0 [facility] Comment on above: Performed By: #### D DAVIDSON, MG, PHOS, CMP, LIPID, URIC #### [facility] [address] [place] [address] Dr. Sarmad Patino Urea nitrogen/Creatinine [Mass ratio] 24.3 mg/mg Normal [facility] Comment on above: Performed By: #### D DAVIDSON, MG, PHOS, CMP, LIPID, URIC #### [facility] [address] [address] [address] Sarmad Patino URIC ACID SERUMon 05-10-2022 Urate [Mass/Vol] 5.1 mg/dL Normal 2.6-6.0 [facility] Comment on above: Performed By: #### U MAXI, LIPID, MG, CMP, DBIL, PHOS #### [facility] [address] [address] [address] Sarmad Patino MYCOPHENOLIC ACIDon 04-17-19 Mycophenolic Acid 1.2 ug/mL Normal 1.0-3.5 [facility] Comment on above: Performed By: #### D DAVIDSON, MG, PHOS, CMP, LIPID, URIC #### [facility] [address] [address] [address] Sarmad Patino Mycophenolic Acid Glucuronide 37 ug/mL Normal 15-125 [facility] Comment on above: Result Comment: [facility] 's Reference Range: 35-100 mcg/mL. Performed By: #### D DAVIDSON, MG, PHOS, CMP, LIPID, URIC #### [facility] [address] [address] [address] Sarmad Patino FK506 (TACROLIMUS) WHOLE BLO ODon 04-10-2022 Tacrolimus (FK506), Blood 4.2 ng/mL Normal 2.0-20.0 [facility] Comment on above: Result Comment: Trou gh (immediately following transplant) 15.0 . Trough (steady state, 2 weeks or more after transplant): 3.0 - 8.0 . Performed by LC-MS/MS technology. Performed By: #### D DAVIDSON, MG, PHOS, CMP, LIPID, URIC #### [facility] [address] [address] [address] Sarmad Patino BILIRUBIN CONJUGATED (DIRECT )on 04-08-2022 BILI, CONJUGATED 0.1 mg/dL Normal 0.0-0.2 [facility] Comment on above: Performed By: #### U MAXI, LIPID, MG, CMP, DBIL, PHOS #### [facility] [address] [address] [address] Sarmad Patino CBC AUTO DIFFon 04-08-2022 BASO # 0.0 103/ul Normal 0.0-0.1 [facility] Comment on above: Performed By: #### D DAVIDSON, MG, PHOS, CMP, LIPID, URIC #### [facility] [address] [place] [address] Dr. Sarmad Patino Basophils/100 WBC (Bld) 0.3 % Normal 0.2-2.0 [facility] Comment on above: Performed By: #### D DAVIDSON, MG, PHOS, CMP, LIPID, URIC #### [facility] [address] [place] [address] Dr. Sarmad Patino EO # 0.1 103/ul Normal 0.0-0.7 [facility] Comment on above: Performed By: #### D DAVIDSON, MG, PHOS, CMP, LIPID, URIC #### [facility] [address] [place] [address] Dr. Sarmad Patino Eosinophils/100 WBC (Bld) 1.4 % Normal 0.9-7.0 [facility] Comment on above: Performed By: #### D DAVIDSON, MG, PHOS, CMP, LIPID, URIC #### [facility] [address] [place] [address] Dr. Sarmad Patino Erythrocyte distribution width (RBC) [Ratio] 15.8 % Critically high 11.0-15.0 [facility] Comment on above: Performed By: #### D DAVIDSON, MG, PHOS, CMP, LIPID, URIC #### [facility] [address] [place] [address] Dr. Sarmad Patino Hematocrit (Bld) [Volume fraction] 43.0 % Normal 36.0-48.0 [facility] Comment on above: Performed By: #### D DAVIDSON, MG, PHOS, CMP, LIPID, URIC #### [facility] [address] [place] [address] Dr. Sarmad Patino Hemoglobin (Bld) [Mass/Vol] 15.0 g/dL Normal 12.0-16.0 [facility] Comment on above: Performed By: #### D DAVIDSON, MG, PHOS, CMP, LIPID, URIC #### [facility] [address] [address] [address] Sarmad Patino IG # 0.01 10e3/ul Normal 0.00-0.03 [facility] Comment on above: Performed By: #### D DAVIDSON, MG, PHOS, CMP, LIPID, URIC #### [facility] [address] [place] [address] Dr. Sarmad Patino IG % 0.1 % Normal 0.0-0.5 [facility] Comment on above: Performed By: #### D DAVIDSON, MG, PHOS, CMP, LIPID, URIC #### [facility] [address] [place] [address] Dr. Sarmad Patino LYMPH # 1.3 103/ul Normal 1.2-3.8 [facility] Comment on above: Performed By: #### D DAVIDSON, MG, PHOS, CMP, LIPID, URIC #### [facility] [address] [place] [address] Dr. Sarmad Patino Lymphocytes/100 WBC (Bld) 18.3 % Critically low 20.5-60.0 [facility] Comment on above: Performed By: #### D DAVIDSON, MG, PHOS, CMP, LIPID, URIC #### [facility] [address] [place] [address] Dr. Sarmad Patino MANUAL DIFF REQ NO Normal [facility] Comment on above: Performed By: #### D DAVIDSON, MG, PHOS, CMP, LIPID, URIC #### [facility] [address] [place] [address] Dr. Sarmad Patino MCH (RBC) [Entitic mass] 29.7 pg Normal 26.7-34.0 [facility] Comment on above: Performed By: #### D DAVIDSON, MG, PHOS, CMP, LIPID, URIC #### [facility] [address] [place] [address] Dr. Sarmad Patino MCHC (RBC) [Mass/Vol] 34.9 g/dL Normal 29.9-35.2 [facility] Comment on above: Performed By: #### D DAVIDSON, MG, PHOS, CMP, LIPID, URIC #### [facility] [address] [place] [address] Dr. Sarmad Patino MCV (RBC) [Entitic vol] 85.1 fL Normal 81.0-99.0 [facility] Comment on above: Performed By: #### D DAVIDSON, MG, PHOS, CMP, LIPID, URIC #### [facility] [address] [place] [address] Dr. Sarmad Patino MONO # 0.7 103/ul Normal 0.3-0.8 [facility] Comment on above: Performed By: #### D DAVIDSON, MG, PHOS, CMP, LIPID, URIC #### [facility] [address] [place] [address] Dr. Sarmad Patino Monocytes/100 WBC (Bld) 9.8 % Normal 1.7-12.0 [facility] Comment on above: Performed By: #### D DAVIDSON, MG, PHOS, CMP, LIPID, URIC #### [facility] [address] [place] [address] Dr. Sarmad Patino NEUT # 5.1 103/ul Normal 1.4-6.5 [facility] Comment on above: Performed By: #### D DAVIDSON, MG, PHOS, CMP, LIPID, URIC #### [facility] [address] [place] [address] Dr. Sarmad Patino Neutrophils/100 WBC (Bld) 70.1 % Normal 43.0-75.0 [facility] Comment on above: Performed By: #### D DAVIDSON, MG, PHOS, CMP, LIPID, URIC #### [facility] [address] [place] [address] Dr. Sarmad Patino Platelet mean volume (Bld) [Entitic vol] 10.4 fL Normal 9.5-13.5 [facility] Comment on above: Performed By: #### D DAVIDSON, MG, PHOS, CMP, LIPID, URIC #### [facility] [address] [place] [address] Dr. Sarmad Patino PLT 229 103/ul Normal 150-450 [facility] Comment on above: Performed By: #### D DAVIDSON, MG, PHOS, CMP, LIPID, URIC #### [facility] [address] [address] [address] Sarmad Patino RBC 5.05 106/ul Normal 4.20-5.40 [facility] Comment on above: Performed By: #### D DAVIDSON, MG, PHOS, CMP, LIPID, URIC #### [facility] [address] [address] [address] Sarmad Patino WBC 7.2 103/ul Normal 4.0-11.0 [facility] Comment on above: Performed By: #### D DAVIDSON, MG, PHOS, CMP, LIPID, URIC #### [facility] [address] [address] [address] Sarmad Patino LIPID PROFILEon 04-08-2022 CHOL-HDL RATIO NORM SEE BELOW Normal [facility] Comment on above: Result Comment: 3.3 - 4.4 LOW RISK 4.4 - 7.1 AVERAGE RISK 7.1 - 11.0 MODERATE RISK >11.0 HIGH RISK Performed By: #### U MAXI, LIPID, MG, CMP, DBIL, PHOS #### [facility] [address] [address] [address] Sarmad Patino Cholesterol [Mass/Vol] 134 mg/dL Normal <=200 [facility] Comment on above: Performed By: #### U MAXI, LIPID, MG, CMP, DBIL, PHOS #### [facility] [address] [address] [address] Sarmad Patino Cholesterol in HDL [Mass/Vol] 55 mg/dL Normal 40-60 [facility] Comment on above: Performed By: #### U MAXI, LIPID, MG, CMP, DBIL, PHOS #### [facility] [address] [address] [address] Sarmad Patino Cholesterol in LDL [Mass/Vol] 56.6 mg/dL Normal [facility] Comment on above: Performed By: #### U MAXI, LIPID, MG, CMP, DBIL, PHOS #### [facility] [address] [address] [address] Sarmad Patino Cholesterol.total/Cho lesterol in HDL [Mass ratio] 2.4 {ratio} Normal [facility] Comment on above: Performed By: #### U MAXI, LIPID, MG, CMP, DBIL, PHOS #### [facility] [address] [address] [address] Sarmad Patino HDL NORMAL > or = 60 mg/dl - LO W CARDIOVASCULAR RISK <40 mg/dl - HIGH CARDIOVASCULAR RISK Normal [facility] Comment on above: Performed By: #### U MAXI, LIPID, MG, CMP, DBIL, PHOS #### [facility] [address] [address] [address] Sarmad Patino LDL CALC NORMAL SEE BELOW Normal [facility] Comment on above: Result Comment: <100 mg/dl OPTIMAL 100 - 129 mg/dl NEAR OR ABOVE OPTIMAL 130 - 159 mg/dl BORDERLINE HIGH 160 - 189 mg/dl HIGH >190 mg/dl VERY HIGH Performed By: #### U MAXI, LIPID, MG, CMP, DBIL, PHOS #### [facility] [address] [address] [address] Sarmad Patino Triglyceride [Mass/Vol] 112 mg/dL Normal <=150 [facility] Comment on above: Performed By: #### U MAXI, LIPID, MG, CMP, DBIL, PHOS #### [facility] [address] [address] [address] Sarmad Patino VLDL CALC 22.4 mg/dL Normal [facility] Comment on above: Performed By: #### U MAXI, LIPID, MG, CMP, DBIL, PHOS #### [facility] [address] [address] [address] Sarmad Patino MAGNESIUMon 04-08-2022 Magnesium [Mass/Vol] 1.8 mg/dL Normal 1.8-2.4 [facility] Comment on above: Performed By: #### U MAXI, LIPID, MG, CMP, DBIL, PHOS #### [facility] [address] [place] [address] Dr. Sarmad Patino PHOSPHORUSon 04-08-2022 Phosphate [Mass/Vol] 3.9 mg/dL Normal 2.6-4.7 [facility] Comment on above: Performed By: #### U MAXI, LIPID, MG, CMP, DBIL, PHOS #### [facility] [address] [address] [address] Sarmad Patino PROF 14(COMP METB)on 023 Albumin [Mass/Vol] 4.0 g/dL Normal 3.4-5.0 [facility] Comment on above: Performed By: #### U MAXI, LIPID, MG, CMP, DBIL, PHOS #### [facility] [address] [address] [address] Sarmad Patino Albumin/Globulin [Mass ratio] 1.3 {ratio} Normal [facility] Comment on above: Performed By: #### U MAXI, LIPID, MG, CMP, DBIL, PHOS #### [facility] [address] [place] [address] Dr. Sarmad Patino ALP [Catalytic activity/Vol] 108 U/L Normal 46-116 [facility] Comment on above: Performed By: #### U MAXI, LIPID, MG, CMP, DBIL, PHOS #### [facility] [address] [place] [address] Dr. Sarmad Patino ALT [Catalytic activity/Vol] 15 U/L Normal 14-59 [facility] Comment on above: Performed By: #### U MAXI, LIPID, MG, CMP, DBIL, PHOS #### [facility] [address] [place] [address] Dr. Sarmad Patino Anion gap [Moles/Vol] 14.3 mmol/L Normal [facility] Comment on above: Performed By: #### U MAXI, LIPID, MG, CMP, DBIL, PHOS #### [facility] [address] [address] [address] Sarmad Patino AST [Catalytic activity/Vol] 15 U/L Normal 15-37 [facility] Comment on above: Performed By: #### U MAXI, LIPID, MG, CMP, DBIL, PHOS #### [facility] [address] [address] [address] Sarmad Patino Bilirubin [Mass/Vol] 0.5 mg/dL Normal 0.2-1.0 [facility] Comment on above: Performed By: #### U MAXI, LIPID, MG, CMP, DBIL, PHOS #### [facility] [address] [address] [address] Sarmad Patino Calcium [Mass/Vol] 9.7 mg/dL Normal 8.5-10.1 [facility] Comment on above: Performed By: #### U MAXI, LIPID, MG, CMP, DBIL, PHOS #### [facility] [address] [address] [address] Sarmad Patino Chloride [Moles/Vol] 105 mmol/L Normal 98-107 [facility] Comment on above: Performed By: #### U MAXI, LIPID, MG, CMP, DBIL, PHOS #### [facility] [address] [place] [address] Dr. Sarmad Patino CO2 [Moles/Vol] 26.6 mmol/L Normal 21.0-32.0 [facility] Comment on above: Performed By: #### U MAXI, LIPID, MG, CMP, DBIL, PHOS #### [facility] [address] [place] [address] Dr. Sarmad Patino Creatinine [Mass/Vol] 0.80 mg/dL Normal 0.55-1.02 [facility] Comment on above: Performed By: #### U MAXI, LIPID, MG, CMP, DBIL, PHOS #### [facility] [address] [place] [address] Dr. Sarmad Patino EGFR-AF EQUATORIAL GUINEAN >60 Normal >=60 [facility] Comment on above: Performed By: #### U MAXI, LIPID, MG, CMP, DBIL, PHOS #### [facility] [address] [address] [address] Sarmad Patino EGFR-NON AF EQUATORIAL GUINEAN >60 Normal >=60 [facility] Comment on above: Performed By: #### U MAXI, LIPID, MG, CMP, DBIL, PHOS #### [facility] [address] [address] [address] Sarmad Patino Globulin (S) [Mass/Vol] 3.0 g/dL Normal [facility] Comment on above: Performed By: #### U MAXI, LIPID, MG, CMP, DBIL, PHOS #### [facility] [address] [place] [address] Dr. Sarmad Patino Glucose [Mass/Vol] 99 mg/dL Normal 74-106 [facility] Comment on above: Performed By: #### U MAXI, LIPID, MG, CMP, DBIL, PHOS #### [facility] [address] [place] [address] Dr. Sarmad Patino Potassium [Moles/Vol] 3.9 mmol/L Normal 3.5-5.1 [facility] Comment on above: Performed By: #### U MAXI, LIPID, MG, CMP, DBIL, PHOS #### [facility] [address] [place] [address] Dr. Sarmad Patino Protein [Mass/Vol] 7.0 g/dL Normal 6.4-8.2 [facility] Comment on above: Performed By: #### U MAXI, LIPID, MG, CMP, DBIL, PHOS #### [facility] [address] [place] [address] Dr. Sarmad Patino Sodium [Moles/Vol] 142 mmol/L Normal 136-145 [facility] Comment on above: Performed By: #### U MAXI, LIPID, MG, CMP, DBIL, PHOS #### [facility] [address] [place] [address] Dr. Sarmad Patino Urea nitrogen [Mass/Vol] 14.0 mg/dL Normal 7.0-18.0 [facility] Comment on above: Performed By: #### U MAXI, LIPID, MG, CMP, DBIL, PHOS #### [facility] [address] [place] [address] Dr. Sarmad Patino Urea nitrogen/Creatinine [Mass ratio] 17.5 mg/mg Normal [facility] Comment on above: Performed By: #### U MAXI, LIPID, MG, CMP, DBIL, PHOS #### [facility] [address] [place] [address] Dr. Sarmad Patino URIC ACID SERUMon 04-08-2022 Urate [Mass/Vol] 5.2 mg/dL Normal 2.6-6.0 [facility] Comment on above: Performed By: #### U MAXI, LIPID, MG, CMP, DBIL, PHOS #### [facility] [address] [address] [address] Sarmad Patino BK VIRUS PCR QUANTon 022 BKV DNA QUANT PCR PLASMA Negative Normal Negative [facility] Comment on above: Result Comment: No B K DNA detected. . The linear range of the assay is 22 - 100,000,000 IU/mL. Performed By: #### D DAVIDSON, MG, PHOS, CMP, LIPID, URIC #### [facility] [address] [address] [address] Sarmad Patino Log10 BKV DNA Plasma Normal [facility] Comment on above: Performed By: #### D DAVIDSON, MG, PHOS, CMP, LIPID, URIC #### [facility] [address] [address] [address] Sarmad Patino FK506 (TACROLIMUS) WHOLE BLO ODon 03-13-2022 Tacrolimus (FK506), Blood 5.0 ng/mL Normal 2.0-20.0 [facility] Comment on above: Result Comment: Trou gh (immediately following transplant) 15.0 . Trough (steady state, 2 weeks or more after transplant): 3.0 - 8.0 . Performed by LC-MS/MS technology. Performed By: #### D DAVIDSON, MG, PHOS, CMP, LIPID, URIC #### [facility] [address] [address] [address] Sarmad Patino GLYCOHEMOGLOBIN A1Con 2021 ADA RECOMMENDATION SEE BELOW Normal [facility] Comment on above: Result Comment: ADA RECOMMENDED LIMIT 4.0 - 6.0 ADA THERAPEUTIC TARGET < 7.0 ACTION SUGGESTED > 7.0 Performed By: #### D DAVIDSON, MG, PHOS, CMP, LIPID, URIC #### [facility] [address] [address] [address] Sarmad Patino Glucose [Mass/Vol] 111 mg/dL Normal [facility] Comment on above: Performed By: #### D DAVIDSON, MG, PHOS, CMP, LIPID, URIC #### [facility] [address] [address] [address] Sarmad Patino HbA1c (Bld) [Mass fraction] 5.5 % Normal 4.5-6.2 [facility] Comment on above: Performed By: #### D DAVIDSON, MG, PHOS, CMP, LIPID, URIC #### [facility] [address] [place] [address] Dr. Sarmad Patino LIVER PROFILEon 03-11-2022 Albumin [Mass/Vol] 3.7 g/dL Normal 3.4-5.0 [facility] Comment on above: Performed By: #### D DAVIDSON, MG, PHOS, CMP, LIPID, URIC #### [facility] [address] [place] [address] Dr. Sarmad Patino Albumin/Globulin [Mass ratio] 1.1 {ratio} Normal [facility] Comment on above: Performed By: #### D DAVIDSON, MG, PHOS, CMP, LIPID, URIC #### [facility] [address] [place] [address] Dr. Sarmad Patino ALP [Catalytic activity/Vol] 124 U/L Critically high 46-116 [facility] Comment on above: Performed By: #### D DAVIDSON, MG, PHOS, CMP, LIPID, URIC #### [facility] [address] [place] [address] Dr. Sarmad Patino ALT [Catalytic activity/Vol] 17 U/L Normal 14-59 [facility] Comment on above: Performed By: #### D DAVIDSON, MG, PHOS, CMP, LIPID, URIC #### [facility] [address] [place] [address] Dr. Sarmad Patino AST [Catalytic activity/Vol] 16 U/L Normal 15-37 [facility] Comment on above: Performed By: #### D DAVIDSON, MG, PHOS, CMP, LIPID, URIC #### [facility] [address] [place] [address] Dr. Sarmad Patino BILI, CONJUGATED 0.2 mg/dL Normal 0.0-0.2 [facility] Comment on above: Performed By: #### D DAVIDSON, MG, PHOS, CMP, LIPID, URIC #### [facility] [address] [address] [address] Sarmad Patino Bilirubin [Mass/Vol] 0.6 mg/dL Normal 0.2-1.0 [facility] Comment on above: Performed By: #### D DAVIDSON, MG, PHOS, CMP, LIPID, URIC #### [facility] [address] [place] [address] Dr. Sarmad Patino Globulin (S) [Mass/Vol] 3.4 g/dL Normal [facility] Comment on above: Performed By: #### D DAVIDSON, MG, PHOS, CMP, LIPID, URIC #### [facility] [address] [place] [address] Dr. Sarmad Patino Protein [Mass/Vol] 7.1 g/dL Normal 6.4-8.2 [facility] Comment on above: Performed By: #### D DAVIDSON, MG, PHOS, CMP, LIPID, URIC #### [facility] [address] [place] [address] Dr. Sarmad Patino MAGNESIUMon 03-11-2022 Magnesium [Mass/Vol] 1.6 mg/dL Critically low 1.8-2.4 [facility] Comment on above: Performed By: #### D DAVIDSON, MG, PHOS, CMP, LIPID, URIC #### [facility] [address] [place] [address] Dr. Sarmad Patino PHOSPHORUSon 03-11-2022 Phosphate [Mass/Vol] 3.5 mg/dL Normal 2.6-4.7 [facility] Comment on above: Performed By: #### D DAVIDSON, MG, PHOS, CMP, LIPID, URIC #### [facility] [address] [place] [address] Dr. Sarmad Patino URIC ACID SERUMon 03-11-2022 Urate [Mass/Vol] 5.3 mg/dL Normal 2.6-6.0 [facility] Comment on above: Performed By: #### D DAVIDSON, MG, PHOS, CMP, LIPID, URIC #### [facility] [address] [address] [address] Sarmad Patino MYCOPHENOLIC ACIDon 02-19-20 22 Mycophenolic Acid 1.5 ug/mL Normal 1.0-3.5 [facility] Comment on above: Performed By: #### D DAVIDSON, MG, PHOS, CMP, LIPID, URIC #### [facility] [address] [address] [address] Sarmad Patino Mycophenolic Acid Glucuronide 32 ug/mL Normal 15-125 [facility] Comment on above: Result Comment: [facility] 's Reference Range: 35-100 mcg/mL. Performed By: #### D DAVIDSON, MG, PHOS, CMP, LIPID, URIC #### [facility] [address] [address] [address] Sarmad Patino BK VIRUS PCR QUANTon 022 BKV DNA QUANT PCR PLASMA Negative Normal Negative [facility] Comment on above: Result Comment: No B K DNA detected. . The linear range of the assay is 22 - 100,000,000 IU/mL. Performed By: #### D DAVIDSON, MG, PHOS, CMP, LIPID, URIC #### [facility] [address] [address] [address] Sarmad Patino Log10 BKV DNA Plasma Normal [facility] Comment on above: Performed By: #### D DAVIDSON, MG, PHOS, CMP, LIPID, URIC #### [facility] [address] [address] [address] Sarmad Patino FK506 (TACROLIMUS) WHOLE BLO ODon 02-11-2022 Tacrolimus (FK506), Blood 4.4 ng/mL Normal 2.0-20.0 [facility] Comment on above: Result Comment: Trou gh (immediately following transplant) 15.0 . Trough (steady state, 2 weeks or more after transplant): 3.0 - 8.0 . Performed by LC-MS/MS technology. Performed By: #### U MAXI, LIPID, MG, CMP, DBIL, PHOS #### [facility] [address] [address] [address] Sarmad Patino BILIRUBIN CONJUGATED (DIRECT )on 02-08-2022 BILI, CONJUGATED 0.1 mg/dL Normal 0.0-0.2 [facility] Comment on above: Performed By: #### D DAVIDSON, MG, PHOS, CMP, LIPID, URIC #### [facility] [address] [place] [address] Dr. Sarmad Patino CBC AUTO DIFFon 02-08-2022 BASO # 0.0 103/ul Normal 0.0-0.1 [facility] Comment on above: Performed By: #### D DAVIDSON, MG, PHOS, CMP, LIPID, URIC #### [facility] [address] [place] [address] Dr. Sarmad Patino Basophils/100 WBC (Bld) 0.3 % Normal 0.2-2.0 [facility] Comment on above: Performed By: #### D DAVIDSON, MG, PHOS, CMP, LIPID, URIC #### [facility] [address] [place] [address] Dr. Sarmad Patino EO # 0.1 103/ul Normal 0.0-0.7 [facility] Comment on above: Performed By: #### D DAVIDSON, MG, PHOS, CMP, LIPID, URIC #### [facility] [address] [place] [address] Dr. Sarmad Patino Eosinophils/100 WBC (Bld) 1.0 % Normal 0.9-7.0 [facility] Comment on above: Performed By: #### D DAVIDSON, MG, PHOS, CMP, LIPID, URIC #### [facility] [address] [place] [address] Dr. Sarmad Patino Erythrocyte distribution width (RBC) [Ratio] 15.9 % Critically high 11.0-15.0 [facility] Comment on above: Performed By: #### D DAVIDSON, MG, PHOS, CMP, LIPID, URIC #### [facility] [address] [place] [address] Dr. Sarmad Patino Hematocrit (Bld) [Volume fraction] 42.2 % Normal 36.0-48.0 [facility] Comment on above: Performed By: #### D DAVIDSON, MG, PHOS, CMP, LIPID, URIC #### [facility] [address] [address] [address] Sarmad Patino Hemoglobin (Bld) [Mass/Vol] 13.8 g/dL Normal 12.0-16.0 [facility] Comment on above: Performed By: #### D DAVIDSON, MG, PHOS, CMP, LIPID, URIC #### [facility] [address] [address] [address] Sarmad Patino IG # 0.10 10e3/ul Critically high 0.00-0.03 [facility] Comment on above: Performed By: #### D DAVIDSON, MG, PHOS, CMP, LIPID, URIC #### [facility] [address] [place] [address] Dr. Sarmad Patino IG % 1.1 % Critically high 0.0-0.5 [facility] Comment on above: Performed By: #### D DAVIDSON, MG, PHOS, CMP, LIPID, URIC #### [facility] [address] [place] [address] Dr. Sarmad Patino LYMPH # 1.2 103/ul Normal 1.2-3.8 [facility] Comment on above: Performed By: #### D DAVIDSON, MG, PHOS, CMP, LIPID, URIC #### [facility] [address] [place] [address] Dr. Sarmad Patino Lymphocytes/100 WBC (Bld) 12.6 % Critically low 20.5-60.0 [facility] Comment on above: Performed By: #### D DAVIDSON, MG, PHOS, CMP, LIPID, URIC #### [facility] [address] [address] [address] Sarmad Patino MANUAL DIFF REQ NO Normal [facility] Comment on above: Performed By: #### D DAVIDSON, MG, PHOS, CMP, LIPID, URIC #### [facility] [address] [place] [address] Dr. Sarmad Patino MCH (RBC) [Entitic mass] 28.3 pg Normal 26.7-34.0 [facility] Comment on above: Performed By: #### D DAVIDSON, MG, PHOS, CMP, LIPID, URIC #### [facility] [address] [place] [address] Dr. Sarmad Patino MCHC (RBC) [Mass/Vol] 32.7 g/dL Normal 29.9-35.2 [facility] Comment on above: Performed By: #### D DAVIDSON, MG, PHOS, CMP, LIPID, URIC #### [facility] [address] [place] [address] Dr. Sarmad Patino MCV (RBC) [Entitic vol] 86.7 fL Normal 81.0-99.0 [facility] Comment on above: Performed By: #### D DAVIDSON, MG, PHOS, CMP, LIPID, URIC #### [facility] [address] [place] [address] Dr. Sarmad Patino MONO # 1.0 103/ul Critically high 0.3-0.8 [facility] Comment on above: Performed By: #### D DAVIDSON, MG, PHOS, CMP, LIPID, URIC #### [facility] [address] [place] [address] Dr. Sarmad Patino Monocytes/100 WBC (Bld) 10.7 % Normal 1.7-12.0 [facility] Comment on above: Performed By: #### D DAVIDSON, MG, PHOS, CMP, LIPID, URIC #### [facility] [address] [place] [address] Dr. Sarmad Patino NEUT # 6.9 103/ul Critically high 1.4-6.5 [facility] Comment on above: Performed By: #### D DAVIDSON, MG, PHOS, CMP, LIPID, URIC #### [facility] [address] [place] [address] Dr. Sarmad Patino Neutrophils/100 WBC (Bld) 74.3 % Normal 43.0-75.0 [facility] Comment on above: Performed By: #### D DAVIDSON, MG, PHOS, CMP, LIPID, URIC #### [facility] [address] [place] [address] Dr. Sarmad Patino Platelet mean volume (Bld) [Entitic vol] 11.1 fL Normal 9.5-13.5 [facility] Comment on above: Performed By: #### D DAVIDSON, MG, PHOS, CMP, LIPID, URIC #### [facility] [address] [address] [address] Sarmad Patino PLT 307 103/ul Normal 150-450 [facility] Comment on above: Performed By: #### D DAVIDSON, MG, PHOS, CMP, LIPID, URIC #### [facility] [address] [address] [address] Sarmad Patino RBC 4.87 106/ul Normal 4.20-5.40 [facility] Comment on above: Performed By: #### D DAVIDSON, MG, PHOS, CMP, LIPID, URIC #### [facility] [address] [address] [address] Sarmad Patino WBC 9.3 103/ul Normal 4.0-11.0 [facility] Comment on above: Performed By: #### D DAVIDSON, MG, PHOS, CMP, LIPID, URIC #### [facility] [address] [address] [address] Sarmad Patino GLYCOHEMOGLOBIN A1Con 2021 ADA RECOMMENDATION SEE BELOW Normal [facility] Comment on above: Result Comment: ADA RECOMMENDED LIMIT 4.0 - 6.0 ADA THERAPEUTIC TARGET < 7.0 ACTION SUGGESTED > 7.0 Performed By: #### D DAVIDSON, MG, PHOS, CMP, LIPID, URIC #### [facility] [address] [address] [address] Sarmad Patino Glucose [Mass/Vol] 134 mg/dL Normal [facility] Comment on above: Performed By: #### D DAVIDSON, MG, PHOS, CMP, LIPID, URIC #### [facility] [address] [address] [address] Sarmad Patino HbA1c (Bld) [Mass fraction] 6.3 % Critically high 4.5-6.2 [facility] Comment on above: Performed By: #### D DAVIDSON, MG, PHOS, CMP, LIPID, URIC #### [facility] [address] [address] [address] Sarmad Patino LIPID PROFILEon 02-08-2022 CHOL-HDL RATIO NORM SEE BELOW Normal [facility] Comment on above: Result Comment: 3.3 - 4.4 LOW RISK 4.4 - 7.1 AVERAGE RISK 7.1 - 11.0 MODERATE RISK >11.0 HIGH RISK Performed By: #### D DAVIDSON, MG, PHOS, CMP, LIPID, URIC #### [facility] [address] [address] [address] Sarmad Patino Cholesterol [Mass/Vol] 180 mg/dL Normal <=200 [facility] Comment on above: Performed By: #### D DAVIDSON, MG, PHOS, CMP, LIPID, URIC #### [facility] [address] [address] [address] Sarmad Patino Cholesterol in HDL [Mass/Vol] 58 mg/dL Normal 40-60 [facility] Comment on above: Performed By: #### D DAVIDSON, MG, PHOS, CMP, LIPID, URIC #### [facility] [address] [address] [address] Sarmad Patino Cholesterol in LDL [Mass/Vol] 86.6 mg/dL Normal [facility] Comment on above: Performed By: #### D DAVIDSON, MG, PHOS, CMP, LIPID, URIC #### [facility] [address] [address] [address] Sarmad Patino Cholesterol.total/Cho lesterol in HDL [Mass ratio] 3.1 {ratio} Normal [facility] Comment on above: Performed By: #### D DAVIDSON, MG, PHOS, CMP, LIPID, URIC #### [facility] [address] [address] [address] Sarmad Patino HDL NORMAL > or = 60 mg/dl - LO W CARDIOVASCULAR RISK <40 mg/dl - HIGH CARDIOVASCULAR RISK Normal [facility] Comment on above: Performed By: #### D DAVIDSON, MG, PHOS, CMP, LIPID, URIC #### [facility] [address] [address] [address] Sarmad Patino LDL CALC NORMAL SEE BELOW Normal [facility] Comment on above: Result Comment: <100 mg/dl OPTIMAL 100 - 129 mg/dl NEAR OR ABOVE OPTIMAL 130 - 159 mg/dl BORDERLINE HIGH 160 - 189 mg/dl HIGH >190 mg/dl VERY HIGH Performed By: #### D DAVIDSON, MG, PHOS, CMP, LIPID, URIC #### [facility] [address] [address] [address] Sarmad Patino Triglyceride [Mass/Vol] 177 mg/dL Critically high <=150 [facility] Comment on above: Performed By: #### D DAVIDSON, MG, PHOS, CMP, LIPID, URIC #### [facility] [address] [place] [address] Dr. Sarmad Patino VLDL CALC 35.4 mg/dL Normal [facility] Comment on above: Performed By: #### D DAVIDSON, MG, PHOS, CMP, LIPID, URIC #### [facility] [address] [place] [address] Dr. Sarmad Patino MAGNESIUMon 02-08-2022 Magnesium [Mass/Vol] 1.8 mg/dL Normal 1.8-2.4 [facility] Comment on above: Performed By: #### D DAVIDSON, MG, PHOS, CMP, LIPID, URIC #### [facility] [address] [place] [address] Dr. Sarmad Patino PHOSPHORUSon 02-08-2022 Phosphate [Mass/Vol] 3.3 mg/dL Normal 2.6-4.7 [facility] Comment on above: Performed By: #### D DAVIDSON, MG, PHOS, CMP, LIPID, URIC #### [facility] [address] [place] [address] Dr. Sarmad Patino PROF 14(COMP METB)on 022 Albumin [Mass/Vol] 3.8 g/dL Normal 3.4-5.0 [facility] Comment on above: Performed By: #### D DAVIDSON, MG, PHOS, CMP, LIPID, URIC #### [facility] [address] [place] [address] Dr. Sarmad Patino Albumin/Globulin [Mass ratio] 1.3 {ratio} Normal [facility] Comment on above: Performed By: #### D DAVIDSON, MG, PHOS, CMP, LIPID, URIC #### [facility] [address] [place] [address] Dr. Sarmad Patino ALP [Catalytic activity/Vol] 144 U/L Critically high 46-116 [facility] Comment on above: Performed By: #### D DAVIDSON, MG, PHOS, CMP, LIPID, URIC #### [facility] [address] [address] [address] Sarmad Patino ALT [Catalytic activity/Vol] 24 U/L Normal 14-59 [facility] Comment on above: Performed By: #### D DAVIDSON, MG, PHOS, CMP, LIPID, URIC #### [facility] [address] [place] [address] Dr. Sarmad Patino Anion gap [Moles/Vol] 13.7 mmol/L Normal [facility] Comment on above: Performed By: #### D DAVIDSON, MG, PHOS, CMP, LIPID, URIC #### [facility] [address] [place] [address] Dr. Sarmad Patino AST [Catalytic activity/Vol] 19 U/L Normal 15-37 [facility] Comment on above: Performed By: #### D DAVIDSON, MG, PHOS, CMP, LIPID, URIC #### [facility] [address] [place] [address] Dr. Sarmad Patino Bilirubin [Mass/Vol] 0.5 mg/dL Normal 0.2-1.0 [facility] Comment on above: Performed By: #### D DAVIDSON, MG, PHOS, CMP, LIPID, URIC #### [facility] [address] [place] [address] Dr. Sarmad Patino Calcium [Mass/Vol] 9.6 mg/dL Normal 8.5-10.1 [facility] Comment on above: Performed By: #### D DAVIDSON, MG, PHOS, CMP, LIPID, URIC #### [facility] [address] [address] [address] Sarmad Patino Chloride [Moles/Vol] 103 mmol/L Normal 98-107 [facility] Comment on above: Performed By: #### D DAVIDSON, MG, PHOS, CMP, LIPID, URIC #### [facility] [address] [place] [address] Dr. Sramad Patino CO2 [Moles/Vol] 26.6 mmol/L Normal 21.0-32.0 [facility] Comment on above: Performed By: #### D DAVIDSON, MG, PHOS, CMP, LIPID, URIC #### [facility] [address] [address] [address] Sarmad Patino Creatinine [Mass/Vol] 0.75 mg/dL Normal 0.55-1.02 [facility] Comment on above: Performed By: #### D DAVIDSON, MG, PHOS, CMP, LIPID, URIC #### [facility] [address] [address] [address] Sarmad Patino EGFR-AF EQUATORIAL GUINEAN >60 Normal >=60 [facility] Comment on above: Performed By: #### D DAVIDSON, MG, PHOS, CMP, LIPID, URIC #### [facility] [address] [address] [address] Sarmad Patino EGFR-NON AF EQUATORIAL GUINEAN >60 Normal >=60 [facility] Comment on above: Performed By: #### D DAVIDSON, MG, PHOS, CMP, LIPID, URIC #### [facility] [address] [address] [address] Sarmad Patino Globulin (S) [Mass/Vol] 3.0 g/dL Normal [facility] Comment on above: Performed By: #### D DAVIDSON, MG, PHOS, CMP, LIPID, URIC #### [facility] [address] [address] [address] Sarmad Patino Glucose [Mass/Vol] 99 mg/dL Normal 74-106 [facility] Comment on above: Performed By: #### D DAVIDSON, MG, PHOS, CMP, LIPID, URIC #### [facility] [address] [address] [address] Sarmad Patino Potassium [Moles/Vol] 4.3 mmol/L Normal 3.5-5.1 [facility] Comment on above: Performed By: #### D DAVIDSON, MG, PHOS, CMP, LIPID, URIC #### [facility] [address] [address] [address] Sarmad Patino Protein [Mass/Vol] 6.8 g/dL Normal 6.4-8.2 [facility] Comment on above: Performed By: #### D DAVIDSON, MG, PHOS, CMP, LIPID, URIC #### [facility] [address] [place] [address] Dr. Sarmad Patino Sodium [Moles/Vol] 139 mmol/L Normal 136-145 [facility] Comment on above: Performed By: #### D DAVIDSON, MG, PHOS, CMP, LIPID, URIC #### [facility] [address] [place] [address] Dr. Sarmad Patino Urea nitrogen [Mass/Vol] 16.0 mg/dL Normal 7.0-18.0 [facility] Comment on above: Performed By: #### D DAVIDSON, MG, PHOS, CMP, LIPID, URIC #### [facility] [address] [place] [address] Dr. Sarmad Patino Urea nitrogen/Creatinine [Mass ratio] 21.3 mg/mg Normal [facility] Comment on above: Performed By: #### D DAVIDSON, MG, PHOS, CMP, LIPID, URIC #### [facility] [address] [place] [address] Dr. Sarmad Patino URIC ACID SERUMon 02-08-2022 Urate [Mass/Vol] 5.4 mg/dL Normal 2.6-6.0 [facility] Comment on above: Performed By: #### D DAVIDSON, MG, PHOS, CMP, LIPID, URIC #### [facility] [address] [place] [address] Dr. Sarmad Patino BK VIRUS PCR QUANTon 022 BKV DNA QUANT PCR PLASMA 27 IU/mL Normal Negative [facility] Comment on above: Result Comment: The linear range of the assay is 22 - 100,000,000 IU/mL. Performed By: #### D DAVIDSON, MG, PHOS, CMP, LIPID, URIC #### [facility] [address] [place] [address] Dr. Sarmad Patino Log10 BKV DNA Plasma 1.431 log10 IU/mL Normal [facility] Comment on above: Performed By: #### D DAVIDSON, MG, PHOS, CMP, LIPID, URIC #### [facility] [address] [place] [address] Dr. Sarmad Patino FK506 (TACROLIMUS) WHOLE BLO ODon 01-30-2022 Tacrolimus (FK506), Blood 6.5 ng/mL Normal 2.0-20.0 [facility] Comment on above: Result Comment: Trou gh (immediately following transplant) 15.0 . Trough (steady state, 2 weeks or more after transplant): 3.0 - 8.0 . Performed by LC-MS/MS technology. Performed By: #### D DAVIDSON, MG, PHOS, CMP, LIPID, URIC #### [facility] [address] [place] [address] Dr. Sarmad Patino RAPAMUNE(SIROLIMUS)on 2021 Rapamune(Sirolimus), whole blood 9.9 ng/mL Normal 3.0-20.0 [facility] Comment on above: Result Comment: Perf ormed by LC/MS-MS technology . This test was developed and its performance characteristics determined by [employer]. It has not been cleared or approved by the Food and Drug Administration. Performed By: #### D DAVIDSON, MG, PHOS, CMP, LIPID, URIC #### [facility] [address] [place] [address] Dr. Sarmad Patino BILIRUBIN CONJUGATED (DIRECT )on 01-28-2022 BILI, CONJUGATED 0.1 mg/dL Normal 0.0-0.2 [facility] Comment on above: Performed By: #### D DAVIDSON, MG, PHOS, CMP, LIPID, URIC #### [facility] [address] [place] [address] Dr. Sarmad Patino CBC AUTO DIFFon 01-28-2022 BASO # 0.0 103/ul Normal 0.0-0.1 [facility] Comment on above: Performed By: #### D DAVIDSON, MG, PHOS, CMP, LIPID, URIC #### [facility] [address] [place] [address] Dr. Sarmad Patino Basophils/100 WBC (Bld) 0.3 % Normal 0.2-2.0 [facility] Comment on above: Performed By: #### D DAVIDSON, MG, PHOS, CMP, LIPID, URIC #### [facility] [address] [address] [address] Sarmad Patino EO # 0.2 103/ul Normal 0.0-0.7 [facility] Comment on above: Performed By: #### D DAVIDSON, MG, PHOS, CMP, LIPID, URIC #### [facility] [address] [address] [address] Sarmad aPtino Eosinophils/100 WBC (Bld) 3.1 % Normal 0.9-7.0 [facility] Comment on above: Performed By: #### D DAVIDSON, MG, PHOS, CMP, LIPID, URIC #### [facility] [address] [place] [address] Dr. Sarmad Patino Erythrocyte distribution width (RBC) [Ratio] 15.4 % Critically high 11.0-15.0 [facility] Comment on above: Performed By: #### D DAVIDSON, MG, PHOS, CMP, LIPID, URIC #### [facility] [address] [place] [address] Dr. Sarmad Patino Hematocrit (Bld) [Volume fraction] 42.6 % Normal 36.0-48.0 [facility] Comment on above: Performed By: #### D DAVIDSON, MG, PHOS, CMP, LIPID, URIC #### [facility] [address] [place] [address] Dr. Sarmad Patino Hemoglobin (Bld) [Mass/Vol] 14.0 g/dL Normal 12.0-16.0 [facility] Comment on above: Performed By: #### D DAVIDSON, MG, PHOS, CMP, LIPID, URIC #### [facility] [address] [place] [address] Dr. Sarmad Patino IG # 0.05 10e3/ul Critically high 0.00-0.03 [facility] Comment on above: Performed By: #### D DAVIDSON, MG, PHOS, CMP, LIPID, URIC #### [facility] [address] [place] [address] Dr. Sarmad Patino IG % 0.7 % Critically high 0.0-0.5 [facility] Comment on above: Performed By: #### D DAVIDSON, MG, PHOS, CMP, LIPID, URIC #### [facility] [address] [place] [address] Dr. Sarmad Patino LYMPH # 1.1 103/ul Critically low 1.2-3.8 [facility] Comment on above: Performed By: #### D DAVIDSON, MG, PHOS, CMP, LIPID, URIC #### [facility] [address] [place] [address] Dr. Sarmad Patino Lymphocytes/100 WBC (Bld) 15.8 % Critically low 20.5-60.0 [facility] Comment on above: Performed By: #### D DAVIDSON, MG, PHOS, CMP, LIPID, URIC #### [facility] [address] [place] [address] Dr. Sarmad Patino MANUAL DIFF REQ NO Normal [facility] Comment on above: Performed By: #### D DAVIDSON, MG, PHOS, CMP, LIPID, URIC #### [facility] [address] [place] [address] Dr. Sarmad Patino MCH (RBC) [Entitic mass] 28.3 pg Normal 26.7-34.0 [facility] Comment on above: Performed By: #### D DAVIDSON, MG, PHOS, CMP, LIPID, URIC #### [facility] [address] [place] [address] Dr. Sarmad Patino MCHC (RBC) [Mass/Vol] 32.9 g/dL Normal 29.9-35.2 [facility] Comment on above: Performed By: #### D DAVIDSON, MG, PHOS, CMP, LIPID, URIC #### [facility] [address] [place] [address] Dr. Sarmad Patino MCV (RBC) [Entitic vol] 86.2 fL Normal 81.0-99.0 [facility] Comment on above: Performed By: #### D DAVIDSON, MG, PHOS, CMP, LIPID, URIC #### [facility] [address] [place] [address] Dr. Sarmad Patino MONO # 0.8 103/ul Normal 0.3-0.8 [facility] Comment on above: Performed By: #### D DAVIDSON, MG, PHOS, CMP, LIPID, URIC #### [facility] [address] [place] [address] Dr. Sarmad Patino Monocytes/100 WBC (Bld) 11.0 % Normal 1.7-12.0 [facility] Comment on above: Performed By: #### D DAVIDSON, MG, PHOS, CMP, LIPID, URIC #### [facility] [address] [address] [address] Sarmad Patino NEUT # 4.8 103/ul Normal 1.4-6.5 [facility] Comment on above: Performed By: #### D DAVIDSON, MG, PHOS, CMP, LIPID, URIC #### [facility] [address] [place] [address] Dr. Sarmad Patino Neutrophils/100 WBC (Bld) 69.1 % Normal 43.0-75.0 [facility] Comment on above: Performed By: #### D DAVIDSON, MG, PHOS, CMP, LIPID, URIC #### [facility] [address] [place] [address] Dr. Sarmad Patino Platelet mean volume (Bld) [Entitic vol] 10.8 fL Normal 9.5-13.5 [facility] Comment on above: Performed By: #### D DAVIDSON, MG, PHOS, CMP, LIPID, URIC #### [facility] [address] [place] [address] Dr. Sarmad Patino PLT 208 103/ul Normal 150-450 [facility] Comment on above: Performed By: #### D DAVIDSON, MG, PHOS, CMP, LIPID, URIC #### [facility] [address] [place] [address] Dr. Sarmad Patino RBC 4.94 106/ul Normal 4.20-5.40 [facility] Comment on above: Performed By: #### D DAVIDSON, MG, PHOS, CMP, LIPID, URIC #### [facility] [address] [place] [address] Dr. Sarmad Patino WBC 7.0 103/ul Normal 4.0-11.0 [facility] Comment on above: Performed By: #### D DAVIDSON, MG, PHOS, CMP, LIPID, URIC #### [facility] [address] [address] [address] Sarmda Patino GLYCOHEMOGLOBIN A1Con 2021 ADA RECOMMENDATION SEE BELOW Normal [facility] Comment on above: Result Comment: ADA RECOMMENDED LIMIT 4.0 - 6.0 ADA THERAPEUTIC TARGET < 7.0 ACTION SUGGESTED > 7.0 Performed By: #### D DAVIDSON, MG, PHOS, CMP, LIPID, URIC #### [facility] [address] [address] [address] Sarmad Patino Glucose [Mass/Vol] 137 mg/dL Normal [facility] Comment on above: Performed By: #### D DAVIDSON, MG, PHOS, CMP, LIPID, URIC #### [facility] [address] [place] [address] Dr. Sarmad Patino HbA1c (Bld) [Mass fraction] 6.4 % Critically high 4.5-6.2 [facility] Comment on above: Performed By: #### D DAVIDSON, MG, PHOS, CMP, LIPID, URIC #### [facility] [address] [address] [address] Sarmad Patino LIPID PROFILEon 01-28-2022 CHOL-HDL RATIO NORM SEE BELOW Normal [facility] Comment on above: Result Comment: 3.3 - 4.4 LOW RISK 4.4 - 7.1 AVERAGE RISK 7.1 - 11.0 MODERATE RISK >11.0 HIGH RISK Performed By: #### D DAVIDSON, MG, PHOS, CMP, LIPID, URIC #### [facility] [address] [address] [address] Sarmad Patino Cholesterol [Mass/Vol] 209 mg/dL Critically high <=200 [facility] Comment on above: Performed By: #### D DAVIDSON, MG, PHOS, CMP, LIPID, URIC #### [facility] [address] [address] [address] Sarmad Patino Cholesterol in HDL [Mass/Vol] 59 mg/dL Normal 40-60 [facility] Comment on above: Performed By: #### D DAVIDSON, MG, PHOS, CMP, LIPID, URIC #### [facility] [address] [address] [address] Sarmad Patino Cholesterol in LDL [Mass/Vol] 100.4 mg/dL Normal [facility] Comment on above: Performed By: #### D DAVIDSON, MG, PHOS, CMP, LIPID, URIC #### [facility] [address] [address] [address] Sarmad Patino Cholesterol.total/Cho lesterol in HDL [Mass ratio] 3.5 {ratio} Normal [facility] Comment on above: Performed By: #### D DAVIDSON, MG, PHOS, CMP, LIPID, URIC #### [facility] [address] [address] [address] Sarmad Patino HDL NORMAL > or = 60 mg/dl - LO W CARDIOVASCULAR RISK <40 mg/dl - HIGH CARDIOVASCULAR RISK Normal [facility] Comment on above: Performed By: #### D DAVIDSON, MG, PHOS, CMP, LIPID, URIC #### [facility] [address] [address] [address] Sarmad Patino LDL CALC NORMAL SEE BELOW Normal [facility] Comment on above: Result Comment: <100 mg/dl OPTIMAL 100 - 129 mg/dl NEAR OR ABOVE OPTIMAL 130 - 159 mg/dl BORDERLINE HIGH 160 - 189 mg/dl HIGH >190 mg/dl VERY HIGH Performed By: #### D DAVIDSON, MG, PHOS, CMP, LIPID, URIC #### [facility] [address] [address] [address] Sarmad Patino Triglyceride [Mass/Vol] 248 mg/dL Critically high <=150 [facility] Comment on above: Performed By: #### D DAVIDSON, MG, PHOS, CMP, LIPID, URIC #### [facility] [address] [address] [address] Sarmad Patino VLDL CALC 49.6 mg/dL Normal [facility] Comment on above: Performed By: #### D DAVIDSON, MG, PHOS, CMP, LIPID, URIC #### [facility] [address] [address] [address] Sarmad Patino MAGNESIUMon 01-28-2022 Magnesium [Mass/Vol] 1.6 mg/dL Critically low 1.8-2.4 [facility] Comment on above: Performed By: #### D DAVIDSON, MG, PHOS, CMP, LIPID, URIC #### [facility] [address] [place] [address] Dr. Sarmad Patino PHOSPHORUSon 01-28-2022 Phosphate [Mass/Vol] 2.7 mg/dL Normal 2.6-4.7 [facility] Comment on above: Performed By: #### D DAVIDSON, MG, PHOS, CMP, LIPID, URIC #### [facility] [address] [place] [address] Dr. Sarmad Patino PROF 14(COMP METB)on 022 Albumin [Mass/Vol] 3.3 g/dL Critically low 3.4-5.0 [facility] Comment on above: Performed By: #### D DAVIDSON, MG, PHOS, CMP, LIPID, URIC #### [facility] [address] [place] [address] Dr. Sarmad Patino Albumin/Globulin [Mass ratio] 0.9 {ratio} Normal [facility] Comment on above: Performed By: #### D DAVIDSON, MG, PHOS, CMP, LIPID, URIC #### [facility] [address] [place] [address] Dr. Sarmad Patino ALP [Catalytic activity/Vol] 124 U/L Critically high 46-116 [facility] Comment on above: Performed By: #### D DAVIDSON, MG, PHOS, CMP, LIPID, URIC #### [facility] [address] [place] [address] Dr. Sarmad Patino ALT [Catalytic activity/Vol] 28 U/L Normal 14-59 [facility] Comment on above: Performed By: #### D DAVIDSON, MG, PHOS, CMP, LIPID, URIC #### [facility] [address] [place] [address] Dr. Sarmad Patino Anion gap [Moles/Vol] 12.0 mmol/L Normal [facility] Comment on above: Performed By: #### D DAVIDSON, MG, PHOS, CMP, LIPID, URIC #### [facility] [address] [address] [address] Sarmad Patino AST [Catalytic activity/Vol] 20 U/L Normal 15-37 [facility] Comment on above: Performed By: #### D DAVIDSON, MG, PHOS, CMP, LIPID, URIC #### [facility] [address] [place] [address] Dr. Sarmad Patino Bilirubin [Mass/Vol] 0.5 mg/dL Normal 0.2-1.0 [facility] Comment on above: Performed By: #### D DAVIDSON, MG, PHOS, CMP, LIPID, URIC #### [facility] [address] [address] [address] Sarmad Patino Calcium [Mass/Vol] 9.1 mg/dL Normal 8.5-10.1 [facility] Comment on above: Performed By: #### D DAVIDSON, MG, PHOS, CMP, LIPID, URIC #### [facility] [address] [address] [address] Sarmad Patino Chloride [Moles/Vol] 104 mmol/L Normal 98-107 [facility] Comment on above: Performed By: #### D DAVIDSON, MG, PHOS, CMP, LIPID, URIC #### [facility] [address] [place] [address] Dr. Sarmad Patino CO2 [Moles/Vol] 25.7 mmol/L Normal 21.0-32.0 [facility] Comment on above: Performed By: #### D DAVIDSON, MG, PHOS, CMP, LIPID, URIC #### [facility] [address] [place] [address] Dr. Sarmad Patino Creatinine [Mass/Vol] 0.77 mg/dL Normal 0.55-1.02 [facility] Comment on above: Performed By: #### D DAVIDSON, MG, PHOS, CMP, LIPID, URIC #### [facility] [address] [place] [address] Dr. Sarmad Patino EGFR-AF EQUATORIAL GUINEAN >60 Normal >=60 [facility] Comment on above: Performed By: #### D DAVIDSON, MG, PHOS, CMP, LIPID, URIC #### [facility] [address] [address] [address] Sarmad Patino EGFR-NON AF EQUATORIAL GUINEAN >60 Normal >=60 [facility] Comment on above: Performed By: #### D DAVIDSON, MG, PHOS, CMP, LIPID, URIC #### [facility] [address] [address] [address] Sarmad Patino Globulin (S) [Mass/Vol] 3.7 g/dL Normal [facility] Comment on above: Performed By: #### D DAVIDSON, MG, PHOS, CMP, LIPID, URIC #### [facility] [address] [address] [address] Sarmad Patino Glucose [Mass/Vol] 108 mg/dL Critically high 74-106 [facility] Comment on above: Performed By: #### D DAVIDSON, MG, PHOS, CMP, LIPID, URIC #### [facility] [address] [place] [address] Dr. Sarmad Patino Potassium [Moles/Vol] 3.7 mmol/L Normal 3.5-5.1 [facility] Comment on above: Performed By: #### D DAVIDSON, MG, PHOS, CMP, LIPID, URIC #### [facility] [address] [place] [address] Dr. Sarmad Patino Protein [Mass/Vol] 7.0 g/dL Normal 6.4-8.2 [facility] Comment on above: Performed By: #### D DAVIDSON, MG, PHOS, CMP, LIPID, URIC #### [facility] [address] [place] [address] Dr. Sarmad Patino Sodium [Moles/Vol] 138 mmol/L Normal 136-145 [facility] Comment on above: Performed By: #### D DAVIDSON, MG, PHOS, CMP, LIPID, URIC #### [facility] [address] [place] [address] Dr. Sarmad Patino Urea nitrogen [Mass/Vol] 15.0 mg/dL Normal 7.0-18.0 [facility] Comment on above: Performed By: #### D DAVIDSON, MG, PHOS, CMP, LIPID, URIC #### [facility] [address] [place], [place] [address] Dr. Sarmad Patino Urea nitrogen/Creatinine [Mass ratio] 19.5 mg/mg Normal [facility] Comment on above: Performed By: #### D DAVIDSON, MG, PHOS, CMP, LIPID, URIC #### [facility] [address] [address] [address] Sarmad Patino URIC ACID SERUMon 01-28-2022 Urate [Mass/Vol] 4.3 mg/dL Normal 2.6-6.0 [facility] Comment on above: Performed By: #### D DAVIDSON, MG, PHOS, CMP, LIPID, URIC #### [facility] [id number] Sarmad Patino Quick Strepon 01-12-2022 S. pyogenes Org specific cx Ql (Throat) Negative [facility] Other Quick Strep [facility] Other XR CHEST 1 Von 01-07-2022 XR [...] ARTEMIO BERNARD Date: 2022-01-07 15:00 Normal [facility] CBC W MANUAL DIFFon 01-04-20 22 ATYPICAL LYMPH # 1.40 103/ul Normal [facility] Comment on above: Performed By: #### D DAVIDSON, MG, PHOS, CMP, LIPID, URIC #### [facility] [id number] Sarmad Patino ATYPICAL LYMPH % 10 % Normal [facility] Comment on above: Performed By: #### D DAVIDSON, MG, PHOS, CMP, LIPID, URIC #### [facility] [address] [address] [address] Sarmad Patino BAND # 0.6 103/ul Critically high 0.0-0.3 [facility] Comment on above: Performed By: #### D DAVIDSON, MG, PHOS, CMP, LIPID, URIC #### [facility] [address] [address] [address] Sarmad Patino BAND % 4 % Normal 0-5 [facility] Comment on above: Performed By: #### D DAVIDSON, MG, PHOS, CMP, LIPID, URIC #### [facility] [address] [place] [address] Dr. Sarmad Patino BASOM # 0.00 103/ul Normal 0.00-0.10 [facility] Comment on above: Performed By: #### D DAVIDSON, MG, PHOS, CMP, LIPID, URIC #### [facility] [address] [place] [address] Dr. Sarmad Patino BASOM % 0.0 % Critically low 0.2-2.0 [facility] Comment on above: Performed By: #### D DAVIDSON, MG, PHOS, CMP, LIPID, URIC #### [facility] [address] [place] [address] Dr. Sarmad Patino BLAST # Normal [facility] Comment on above: Performed By: #### D DAVIDSON, MG, PHOS, CMP, LIPID, URIC #### [facility] [address] [place] [address] Dr. Sarmad Patino BLAST % Normal [facility] Comment on above: Performed By: #### D DAVIDSON, MG, PHOS, CMP, LIPID, URIC #### [facility] [address] [place] [address] Dr. Sarmad Patino CORRECTED WBC Normal 4.0-11.0 [facility] Comment on above: Performed By: #### D DAVIDSON, MG, PHOS, CMP, LIPID, URIC #### [facility] [address] [place] [address] Dr. Sarmad Patino EOS # 0.14 103/ul Normal 0.00-0.70 [facility] Comment on above: Performed By: #### D DAVIDSON, MG, PHOS, CMP, LIPID, URIC #### [facility] [address] [address] [address] Sarmad Patino EOS% 1.0 % Normal 0.9-7.0 [facility] Comment on above: Performed By: #### D DAVIDSON, MG, PHOS, CMP, LIPID, URIC #### [facility] [address] [place] [address] Dr. Sarmad Patino HCT 42.8 % Normal 36.0-48.0 [facility] Comment on above: Performed By: #### D DAVIDSON, MG, PHOS, CMP, LIPID, URIC #### [facility] [address] [place] [address] Dr. Sarmad Patino HGB 14.2 g/dl Normal 12.0-16.0 [facility] Comment on above: Performed By: #### D DAVIDSON, MG, PHOS, CMP, LIPID, URIC #### [facility] [address] [place] [address] Dr. Sarmad Patino LYMPHM # 0.00 103/ul Critically low 1.20-3.80 [facility] Comment on above: Performed By: #### D DAVIDSON, MG, PHOS, CMP, LIPID, URIC #### [facility] [address] [address] [address] Sarmad Patino LYMPHM% 0.0 % Critically low 20.5-60.0 [facility] Comment on above: Performed By: #### D DAVIDSON, MG, PHOS, CMP, LIPID, URIC #### [facility] [address] [address] [address] Sarmad Patino MCH 28.8 pg Normal 26.7-34.0 [facility] Comment on above: Performed By: #### D DAVIDSON, MG, PHOS, CMP, LIPID, URIC #### [facility] [address] [place] [address] Dr. Sarmad Patino MCHC 33.2 g/dl Normal 29.9-35.2 [facility] Comment on above: Performed By: #### D DAVIDSON, MG, PHOS, CMP, LIPID, URIC #### [facility] [address] [place] [address] Dr. Sarmad Patino MCV 86.8 fL Normal 81.0-99.0 [facility] Comment on above: Performed By: #### D DAVIDSON, MG, PHOS, CMP, LIPID, URIC #### [facility] [address] [address] [address] Sarmad Patino METAMYELOCYTE # Normal [facility] Comment on above: Performed By: #### D DAVIDSON, MG, PHOS, CMP, LIPID, URIC #### [facility] [address] [place] [address] Dr. Sarmad Patino METAMYELOCYTE % Normal [facility] Comment on above: Performed By: #### D DAVIDSON, MG, PHOS, CMP, LIPID, URIC #### [facility] [address] [place] [address] Dr. Sarmad Patino MONOM# 0.84 103/ul Critically high 0.30-0.80 [facility] Comment on above: Performed By: #### D DAVIDSON, MG, PHOS, CMP, LIPID, URIC #### [facility] [address] [place] [address] Dr. Sarmad Patino MONOM% 6.0 % Normal 1.7-12.0 [facility] Comment on above: Performed By: #### D DAVIDSON, MG, PHOS, CMP, LIPID, URIC #### [facility] [address] [place] [address] Dr. Sarmad Patino MPV 11.5 fL Normal 9.5-13.5 [facility] Comment on above: Performed By: #### D DAVIDSON, MG, PHOS, CMP, LIPID, URIC #### [facility] [address] [place] [address] Dr. Sarmad Patino MYELOCYTE # 0.3 103/ul Normal The [facility] Comment on above: Performed By: #### D DAVIDSON, MG, PHOS, CMP, LIPID, URIC #### [facility] [address] [address] [address] Sarmad Patino MYELOCYTE % 2 % Normal The [facility] Comment on above: Performed By: #### D DAVIDSON, MG, PHOS, CMP, LIPID, URIC #### [facility] [address] [address] [address] Samrad Patino NRBC Normal [facility] Comment on above: Performed By: #### D DAVIDSON, MG, PHOS, CMP, LIPID, URIC #### [facility] [address] [address] [address] Sarmad Patino PLT 180 103/ul Normal 150-450 [facility] Comment on above: Performed By: #### D DAVIDSON, MG, PHOS, CMP, LIPID, URIC #### [facility] [address] [address] [address] Sarmad Patino RBC 4.93 106/ul Normal 4.20-5.40 [facility] Comment on above: Performed By: #### D DAVIDSON, MG, PHOS, CMP, LIPID, URIC #### [facility] [address] [address] [address] Sarmad Patino RDW 13.9 % Normal 11.0-15.0 [facility] Comment on above: Performed By: #### D DAVIDSON, MG, PHOS, CMP, LIPID, URIC #### [facility] [address] [address] [address] Sarmad Patino SEG # 10.78 103/ul Critically high 1.40-6.50 [facility] Comment on above: Performed By: #### D DAVIDSON, MG, PHOS, CMP, LIPID, URIC #### [facility] [address] [address] [address] Sarmad Patino SEG % 77.0 % Critically high 43.0-75.0 [facility] Comment on above: Performed By: #### D DAVIDSON, MG, PHOS, CMP, LIPID, URIC #### [facility] [address] [address] [address] Sarmad Patino WBC 14.0 103/ul Critically high 4.0-11.0 [facility] Comment on above: Performed By: #### D DAVIDSON, MG, PHOS, CMP, LIPID, URIC #### [facility] [address] [address] [address] NECK ST W [...] middle ear cavities clear. Skull base intact. Acquisition Marketing Coordinator spaces normal. Parotid glands normal. Submandibular glands [...] F HOPPER Date: 2022-01-03 10:40 Normal [facility] SARS-CoV-2 (COVID-19) RNA MURALI+probe Ql (Unsp spec) Detected Critically abnormal NOT DETECTED The [facility] Comment on above: Result Comment: This test is not yet approved or cleared by the [place] FDA. When there are no FDA-approved or cleared tests available, and other criteria are met, FDA can make tests available under an emergency access mechanism called an Emergency Use Authorization (EUA). The EUA for this test is supported by the [place] of Health and Human Service's declaration [...] DAVIDSON, MG, PHOS, CMP, LIPID, URIC #### [facility] [address] [place] [address] Dr. Sarmad Patino GROUP A STREP CULTUREon S. pyogenes Ag Ql (Unsp spec) Culture Observations: Negative for Group A Streptococcus Normal The [facility] Comment on above: Performed By: #### U MAXI, LIPID, MG, CMP, DBIL, PHOS #### [facility] [address] [address] [address] Sarmad Patino INFLUENZA A AND B AGon 01-03 INFLUENZA A AG Negative Normal NEGATIVE SEE COMMENT The [facility] Comment on above: Performed By: #### D DAVIDSON, MG, PHOS, CMP, LIPID, URIC #### [facility] [address] [place] [address] Dr. Sarmad Patino INFLUENZA B AG Negative Normal NEGATIVE SEE COMMENT The [facility] Comment on above: Performed By: #### D DAVIDSON, MG, PHOS, CMP, LIPID, URIC #### [facility] [address] [address] [address] Sarmad Patino INTERNAL CONTROLS Within Normal Limits Normal Wi thin Normal Limits The [facility] Comment on above: Performed By: #### D DAVIDSON, MG, PHOS, CMP, LIPID, URIC #### [facility] [address] [place] [address] Dr. Sarmad Patino PROF 14(COMP METB)on 022 Albumin [Mass/Vol] 2.5 g/dL Critically low 3.4-5.0 Th e [facility] Comment on above: Performed By: #### U MAXI, LIPID, MG, CMP, DBIL, PHOS #### [facility] [address] [place] [address] Dr. Sarmad Patino Albumin/Globulin [Mass ratio] 0.5 {ratio} Normal [facility] Comment on above: Performed By: #### U MAXI, LIPID, MG, CMP, DBIL, PHOS #### [facility] [address] [address] [address] Sarmad Patino ALP [Catalytic activity/Vol] 185 U/L Critically high 46-116 [facility] Comment on above: Performed By: #### U MAXI, LIPID, MG, CMP, DBIL, PHOS #### [facility] [address] [place] [address] Dr. Sarmad Patino ALT [Catalytic activity/Vol] 108 U/L Critically high 14-59 [facility] Comment on above: Performed By: #### U MAXI, LIPID, MG, CMP, DBIL, PHOS #### [facility] [address] [place] [address] Dr. Sarmad Patino Anion gap [Moles/Vol] 8.3 mmol/L Normal [facility] Comment on above: Performed By: #### U MAXI, LIPID, MG, CMP, DBIL, PHOS #### [facility] [address] [place] [address] Dr. Sarmad Patino AST [Catalytic activity/Vol] 59 U/L Critically high 15-37 [facility] Comment on above: Performed By: #### U MAXI, LIPID, MG, CMP, DBIL, PHOS #### [facility] [address] [place] [address] Dr. Sarmad Patino Bilirubin [Mass/Vol] 0.6 mg/dL Normal 0.2-1.0 [facility] Comment on above: Performed By: #### U MAXI, LIPID, MG, CMP, DBIL, PHOS #### [facility] [address] [place] [address] Dr. Sarmad Patino Calcium [Mass/Vol] 9.0 mg/dL Normal 8.5-10.1 [facility] Comment on above: Performed By: #### U MAXI, LIPID, MG, CMP, DBIL, PHOS #### [facility] [address] [address] [address] Sarmad Patino Chloride [Moles/Vol] 100 mmol/L Normal 98-107 [facility] Comment on above: Performed By: #### U MAXI, LIPID, MG, CMP, DBIL, PHOS #### [facility] [address] [address] [address] Sarmad Patino CO2 [Moles/Vol] 29.0 mmol/L Normal 21.0-32.0 [facility] Comment on above: Performed By: #### U MAXI, LIPID, MG, CMP, DBIL, PHOS #### [facility] [address] [address] [address] Sarmad Patino Creatinine [Mass/Vol] 1.05 mg/dL Critically high 0.55-1.02 [facility] Comment on above: Performed By: #### U MAXI, LIPID, MG, CMP, DBIL, PHOS #### [facility] [address] [address] [address] Sarmad Patino EGFR-AF EQUATORIAL GUINEAN >60 Normal >=60 [facility] Comment on above: Performed By: #### U MAXI, LIPID, MG, CMP, DBIL, PHOS #### [facility] [address] [address] [address] Sarmad Patino EGFR-NON AF EQUATORIAL GUINEAN 53 mL/min/1.73m2 Critically low >=60 [facility] Comment on above: Performed By: #### U MAXI, LIPID, MG, CMP, DBIL, PHOS #### [facility] [address] [address] [address] Sarmad Patino Globulin (S) [Mass/Vol] 4.6 g/dL Normal [facility] Comment on above: Performed By: #### U MAXI, LIPID, MG, CMP, DBIL, PHOS #### [facility] [address] [address] [address] Sarmad Patino Glucose [Mass/Vol] 154 mg/dL Critically high 74-106 [facility] Comment on above: Performed By: #### U MAXI, LIPID, MG, CMP, DBIL, PHOS #### [facility] [address] [address] [address] Sarmad Patino Potassium [Moles/Vol] 3.3 mmol/L Critically low 3.5-5.1 [facility] Comment on above: Performed By: #### U MAXI, LIPID, MG, CMP, DBIL, PHOS #### [facility] [address] [place] [address] Dr. Sarmad Patino Protein [Mass/Vol] 7.1 g/dL Normal 6.4-8.2 [facility] Comment on above: Performed By: #### U MAXI, LIPID, MG, CMP, DBIL, PHOS #### [facility] [address] [place] [address] Dr. Sarmad Patino Sodium [Moles/Vol] 134 mmol/L Critically low 136-145 [facility] Comment on above: Performed By: #### U MAXI, LIPID, MG, CMP, DBIL, PHOS #### [facility] [address] [address] [address] Sarmad Patino Urea nitrogen [Mass/Vol] 24.0 mg/dL Critically high 7.0-18.0 [facility] Comment on above: Performed By: #### U MAXI, LIPID, MG, CMP, DBIL, PHOS #### [facility] [address] [place] [address] Dr. Sarmad Patino Urea nitrogen/Creatinine [Mass ratio] 22.9 mg/mg Normal [facility] Comment on above: Performed By: #### U MAXI, LIPID, MG, CMP, DBIL, PHOS #### [facility] [address] [place] [address] Dr. Sarmad Patino STREPT SCREENon 01-03-2022 STREP SCREEN A Negative Normal NEGATIVE [facility] Comment on above: Performed By: #### U MAXI, LIPID, MG, CMP, DBIL, PHOS #### [facility] [address] [place] [address] Dr. Sarmad Patino XR CHEST 2 Von [...] MAYRA WHITESIDE Date: 2022-01-03 03:54 Normal The [facility] Quick Strepon 12-28-2021 S. pyogenes Org specific cx Ql (Throat) Negative [facility] Quick Strep [facility] Other SARS-CoV-2 (COVID-19) RNA NA A+probe Ql (Resp)on 12-25-2021 SARS-CoV-2 (COVID-19) RNA MURALI+probe Ql (Unsp spec) Negative [facility] Other FK506 (TACROLIMUS) WHOLE BLO ODon 12-08-2021 Tacrolimus (FK506), Blood 6.6 ng/mL Normal 2.0-20.0 [facility] Comment on above: Result Comment: Trou gh (immediately following transplant) 15.0 . Trough (steady state, 2 weeks or more after transplant): 3.0 - 8.0 . Performed by LC-MS/MS technology. Performed By: #### D DAVIDSON, MG, PHOS, CMP, LIPID, URIC #### [facility] [address] [address] [address] Sarmad Patino RAPAMUNE(SIROLIMUS)on 2021 Rapamune(Sirolimus), whole blood 9.6 ng/mL Normal 3.0-20.0 [facility] Comment on above: Result Comment: Perf ormed by LC/MS-MS technology . This test was developed and its performance characteristics determined by [facility]. It has not been cleared or approved by the Food and Drug Administration. Performed By: #### D DAVIDSON, MG, PHOS, CMP, LIPID, URIC #### [facility] [address] [address] [address] Sarmad Patino BILIRUBIN CONJUGATED (DIRECT )on 12-05-2021 BILI, CONJUGATED 0.1 mg/dL Normal 0.0-0.2 [facility] Comment on above: Performed By: #### D DAVIDSON, MG, PHOS, CMP, LIPID, URIC #### [facility] [address] [address] [address] Sarmad Patino CBC W MANUAL DIFFon 12-06-19 22 ATYPICAL LYMPH # Normal [facility] Comment on above: Performed By: #### D DAVIDSON, MG, PHOS, CMP, LIPID, URIC #### [facility] [address] [place] [address] Dr. Sarmad Patino ATYPICAL LYMPH % Normal [facility] Comment on above: Performed By: #### D DAVIDSON, MG, PHOS, CMP, LIPID, URIC #### [facility] [address] [address] [address] Sarmad Patino BAND # Normal 0.0-0.3 [facility] Comment on above: Performed By: #### D DAVIDSON, MG, PHOS, CMP, LIPID, URIC #### [facility] [address] [place] [address] Dr. Sarmad Patino BAND % Normal 0-5 [facility] Comment on above: Performed By: #### D DAVIDSON, MG, PHOS, CMP, LIPID, URIC #### [facility] [address] [address] [address] Sarmad Patino BASOM # 0.00 103/ul Normal 0.00-0.10 [facility] Comment on above: Performed By: #### D DAVIDSON, MG, PHOS, CMP, LIPID, URIC #### [facility] [address] [place] [address] Dr. Sarmad Patino BASOM % 0.0 % Critically low 0.2-2.0 [facility] Comment on above: Performed By: #### D DAVIDSON, MG, PHOS, CMP, LIPID, URIC #### [facility] [address] [place] [address] Dr. Sarmad Patino BLAST # Normal [facility] Comment on above: Performed By: #### D DAVIDSON, MG, PHOS, CMP, LIPID, URIC #### [facility] [address] [address] [address] Sarmad Patino BLAST % Normal [facility] Comment on above: Performed By: #### D DAVIDSON, MG, PHOS, CMP, LIPID, URIC #### [facility] [address] [address] [address] Sarmad Patino CORRECTED WBC Normal 4.0-11.0 [facility] Comment on above: Performed By: #### D DAVIDSON, MG, PHOS, CMP, LIPID, URIC #### [facility] [address] [place] [address] Dr. Sarmad Patino EOS # 0.15 103/ul Normal 0.00-0.70 [facility] Comment on above: Performed By: #### D DAVIDSON, MG, PHOS, CMP, LIPID, URIC #### [facility] [address] [place] [address] Dr. Sarmad Patino EOS% 2.0 % Normal 0.9-7.0 [facility] Comment on above: Performed By: #### D DAVIDSON, MG, PHOS, CMP, LIPID, URIC #### [facility] [address] [place] [address] Dr. Sarmad Patino HCT 47.5 % Normal 36.0-48.0 [facility] Comment on above: Performed By: #### D DAVIDSON, MG, PHOS, CMP, LIPID, URIC #### [facility] [address] [place] [address] Dr. Sarmad Patino HGB 15.6 g/dl Normal 12.0-16.0 [facility] Comment on above: Performed By: #### D DAVIDSON, MG, PHOS, CMP, LIPID, URIC #### [facility] [address] [place] [address] Dr. Sarmad Patino LYMPHM # 1.46 103/ul Normal 1.20-3.80 [facility] Comment on above: Performed By: #### D DAVIDSON, MG, PHOS, CMP, LIPID, URIC #### [facility] [address] [address] [address] Sarmad Patino LYMPHM% 19.0 % Critically low 20.5-60.0 [facility] Comment on above: Performed By: #### D DAVIDSON, MG, PHOS, CMP, LIPID, URIC #### [facility] [address] [address] [address] Sarmad Patino MCH 28.9 pg Normal 26.7-34.0 [facility] Comment on above: Performed By: #### D DAVIDSON, MG, PHOS, CMP, LIPID, URIC #### [facility] [address] [place] [address] Dr. Sarmad Patino MCHC 32.8 g/dl Normal 29.9-35.2 [facility] Comment on above: Performed By: #### D DAVIDSON, MG, PHOS, CMP, LIPID, URIC #### [facility] [address] [address] [address] Sarmad Patino MCV 88.1 fL Normal 81.0-99.0 [facility] Comment on above: Performed By: #### D DAVIDSON, MG, PHOS, CMP, LIPID, URIC #### [facility] [address] [address] [address] Sarmad Patino METAMYELOCYTE # Normal [facility] Comment on above: Performed By: #### D DAVIDSON, MG, PHOS, CMP, LIPID, URIC #### [facility] [address] [address] [address] Sarmad Patino METAMYELOCYTE % Normal [facility] Comment on above: Performed By: #### D DAVIDSON, MG, PHOS, CMP, LIPID, URIC #### [facility] [address] [address] [address] Sarmad Patino MONOM# 0.85 103/ul Critically high 0.30-0.80 The [facility] Comment on above: Performed By: #### D DAVIDSON, MG, PHOS, CMP, LIPID, URIC #### [facility] [address] [address] [address] Sarmad Patino MONOM% 11.0 % Normal 1.7-12.0 [facility] Comment on above: Performed By: #### D DAVIDSON, MG, PHOS, CMP, LIPID, URIC #### [facility] [address] [address] [address] Sarmad Patino MPV 11.3 fL Normal 9.5-13.5 [facility] Comment on above: Performed By: #### D DAVIDSON, MG, PHOS, CMP, LIPID, URIC #### [facility] [address] [place] [address] Dr. Sarmad Patino MYELOCYTE # Normal [facility] Comment on above: Performed By: #### D DAVIDSON, MG, PHOS, CMP, LIPID, URIC #### [facility] [address] [place] [address] Dr. Sarmad Patino MYELOCYTE % Normal [facility] Comment on above: Performed By: #### D DAVIDSON, MG, PHOS, CMP, LIPID, URIC #### [facility] [address] [place] [address] Dr. Sarmad Patino NRBC Normal [facility] Comment on above: Performed By: #### D DAVIDSON, MG, PHOS, CMP, LIPID, URIC #### [facility] [address] [address] [address] Sarmad Patino PLT 214 103/ul Normal 150-450 [facility] Comment on above: Performed By: #### D DAVIDSON, MG, PHOS, CMP, LIPID, URIC #### [facility] [address] [address] [address] Sarmad Patino RBC 5.39 106/ul Normal 4.20-5.40 [facility] Comment on above: Performed By: #### D DAVIDSON, MG, PHOS, CMP, LIPID, URIC #### [facility] [address] [address] [address] Sarmad Patino RDW 13.8 % Normal 11.0-15.0 [facility] Comment on above: Performed By: #### D DAVIDSON, MG, PHOS, CMP, LIPID, URIC #### [facility] [address] [place] [address] Dr. Sarmad Patino SEG # 5.24 103/ul Normal 1.40-6.50 [facility] Comment on above: Performed By: #### D DAVIDSON, MG, PHOS, CMP, LIPID, URIC #### [facility] [address] [place] [address] Dr. Sarmad Patino SEG % 68.0 % Normal 43.0-75.0 [facility] Comment on above: Performed By: #### D DAVIDSON, MG, PHOS, CMP, LIPID, URIC #### [facility] [address] [place] [address] Dr. Sarmad Patino WBC 7.7 103/ul Normal 4.0-11.0 [facility] Comment on above: Performed By: #### D DAVIDSON, MG, PHOS, CMP, LIPID, URIC #### [facility] [address] [place] [address] Dr. Sarmad Patino LIPID PROFILEon 12-05-2021 CHOL-HDL RATIO NORM SEE BELOW Normal [facility] Comment on above: Result Comment: 3.3 - 4.4 LOW RISK 4.4 - 7.1 AVERAGE RISK 7.1 - 11.0 MODERATE RISK >11.0 HIGH RISK Performed By: #### D DAVIDSON, MG, PHOS, CMP, LIPID, URIC #### [facility] [address] [place] [address] Dr. Sarmad Patino Cholesterol [Mass/Vol] 170 mg/dL Normal <=200 [facility] Comment on above: Performed By: #### D DAVIDSON, MG, PHOS, CMP, LIPID, URIC #### [facility] [address] [place] [address] Dr. Sarmad Patino Cholesterol in HDL [Mass/Vol] 54 mg/dL Normal 40-60 [facility] Comment on above: Performed By: #### D DAVIDSON, MG, PHOS, CMP, LIPID, URIC #### [facility] [address] [place] [address] Dr. Sarmad Patino Cholesterol in LDL [Mass/Vol] 92.2 mg/dL Normal [facility] Comment on above: Performed By: #### D DAVIDSON, MG, PHOS, CMP, LIPID, URIC #### [facility] [address] [address] [address] Sarmad Patino Cholesterol.total/Cho lesterol in HDL [Mass ratio] 3.1 {ratio} Normal [facility] Comment on above: Performed By: #### D DAVIDSON, MG, PHOS, CMP, LIPID, URIC #### [facility] [address] [address] [address] Sarmad Patino HDL NORMAL > or = 60 mg/dl - LO W CARDIOVASCULAR RISK <40 mg/dl - HIGH CARDIOVASCULAR RISK Normal [facility] Comment on above: Performed By: #### D DAVIDSON, MG, PHOS, CMP, LIPID, URIC #### [facility] [address] [address] [address] Sarmad Patino LDL CALC NORMAL SEE BELOW Normal [facility] Comment on above: Result Comment: <100 mg/dl OPTIMAL 100 - 129 mg/dl NEAR OR ABOVE OPTIMAL 130 - 159 mg/dl BORDERLINE HIGH 160 - 189 mg/dl HIGH >190 mg/dl VERY HIGH Performed By: #### D DAVIDSON, MG, PHOS, CMP, LIPID, URIC #### [facility] [address] [address] [address] Sarmad Patino Triglyceride [Mass/Vol] 119 mg/dL Normal <=150 [facility] Comment on above: Performed By: #### D DAVIDSON, MG, PHOS, CMP, LIPID, URIC #### [facility] [address] [address] [address] Sarmad Patino VLDL CALC 23.8 mg/dL Normal [facility] Comment on above: Performed By: #### D DAVIDSON, MG, PHOS, CMP, LIPID, URIC #### [facility] [address] [address] [address] Sarmad Patino MAGNESIUMon 12-05-2021 Magnesium [Mass/Vol] 1.8 mg/dL Normal 1.8-2.4 [facility] Comment on above: Performed By: #### D DAVIDSON, MG, PHOS, CMP, LIPID, URIC #### [facility] [address] [address] [address] Sarmad Patino PHOSPHORUSon 12-05-2021 Phosphate [Mass/Vol] 3.8 mg/dL Normal 2.6-4.7 [facility] Comment on above: Performed By: #### D DAVIDSON, MG, PHOS, CMP, LIPID, URIC #### [facility] [address] [address] [address] Sarmad Patino PROF 14(COMP METB)on 022 Albumin [Mass/Vol] 3.7 g/dL Normal 3.4-5.0 [facility] Comment on above: Performed By: #### D DAVIDSON, MG, PHOS, CMP, LIPID, URIC #### [facility] [address] [place] [address] Dr. Sarmad Patino Albumin/Globulin [Mass ratio] 1.0 {ratio} Normal [facility] Comment on above: Performed By: #### D DAVIDSON, MG, PHOS, CMP, LIPID, URIC #### [facility] [address] [place] [address] Dr. Sarmad Patino ALP [Catalytic activity/Vol] 151 U/L Critically high 46-116 [facility] Comment on above: Performed By: #### D DAVIDSON, MG, PHOS, CMP, LIPID, URIC #### [facility] [address] [address] [address] Sarmad Patino ALT [Catalytic activity/Vol] 27 U/L Normal 14-59 [facility] Comment on above: Performed By: #### D DAVIDSON, MG, PHOS, CMP, LIPID, URIC #### [facility] [address] [address] [address] Sarmad Patino Anion gap [Moles/Vol] 14.5 mmol/L Normal [facility] Comment on above: Performed By: #### D DAVIDSON, MG, PHOS, CMP, LIPID, URIC #### [facility] [address] [place] [address] Dr. Sarmad Patino AST [Catalytic activity/Vol] 25 U/L Normal 15-37 [facility] Comment on above: Performed By: #### D DAVIDSON, MG, PHOS, CMP, LIPID, URIC #### [facility] [address] [address] [address] Sarmad Patino Bilirubin [Mass/Vol] 0.4 mg/dL Normal 0.2-1.0 [facility] Comment on above: Performed By: #### D DAVIDSON, MG, PHOS, CMP, LIPID, URIC #### [facility] [address] [address] [address] Sarmad Patino Calcium [Mass/Vol] 9.4 mg/dL Normal 8.5-10.1 [facility] Comment on above: Performed By: #### D DAVIDSON, MG, PHOS, CMP, LIPID, URIC #### [facility] [address] [place] [address] Dr. Sarmad Patino Chloride [Moles/Vol] 103 mmol/L Normal 98-107 [facility] Comment on above: Performed By: #### D DAVIDSON, MG, PHOS, CMP, LIPID, URIC #### [facility] [address] [place] [address] Dr. Sarmad Patino CO2 [Moles/Vol] 26.5 mmol/L Normal 21.0-32.0 [facility] Comment on above: Performed By: #### D DAVIDSON, MG, PHOS, CMP, LIPID, URIC #### [facility] [address] [place] [address] Dr. Sarmad Patino Creatinine [Mass/Vol] 0.87 mg/dL Normal 0.55-1.02 [facility] Comment on above: Performed By: #### D DAVIDSON, MG, PHOS, CMP, LIPID, URIC #### [facility] [address] [address] [address] Sarmad Patino EGFR-AF EQUATORIAL GUINEAN >60 Normal >=60 [facility] Comment on above: Performed By: #### D DVAIDSON, MG, PHOS, CMP, LIPID, URIC #### [facility] [address] [address] [address] Sarmad Patino EGFR-NON AF EQUATORIAL GUINEAN >60 Normal >=60 [facility] Comment on above: Performed By: #### D DAVIDSON, MG, PHOS, CMP, LIPID, URIC #### [facility] [address] [address] [address] Sarmad Patino Globulin (S) [Mass/Vol] 3.8 g/dL Normal [facility] Comment on above: Performed By: #### D DAVIDSON, MG, PHOS, CMP, LIPID, URIC #### [facility] [address] [address] [address] Sarmad Patino Glucose [Mass/Vol] 104 mg/dL Normal 74-106 [facility] Comment on above: Performed By: #### D DAVIDSON, MG, PHOS, CMP, LIPID, URIC #### [facility] [address] [place] [address] Dr. Sarmad Patino Potassium [Moles/Vol] 4.0 mmol/L Normal 3.5-5.1 [facility] Comment on above: Performed By: #### D DAVIDSON, MG, PHOS, CMP, LIPID, URIC #### [facility] [address] [place] [address] Dr. Sarmad Patino Protein [Mass/Vol] 7.5 g/dL Normal 6.4-8.2 [facility] Comment on above: Performed By: #### D DAVIDSON, MG, PHOS, CMP, LIPID, URIC #### [facility] [address] [place] [address] Dr. Sarmad Patino Sodium [Moles/Vol] 140 mmol/L Normal 136-145 [facility] Comment on above: Performed By: #### D DAVIDSON, MG, PHOS, CMP, LIPID, URIC #### [facility] [address] [place] [address] Dr. Sarmad Patino Urea nitrogen [Mass/Vol] 19.0 mg/dL Critically high 7.0-18.0 [facility] Comment on above: Performed By: #### D DAVIDSON, MG, PHOS, CMP, LIPID, URIC #### [facility] [address] [place] [address] Dr. Sarmad Patino Urea nitrogen/Creatinine [Mass ratio] 21.8 mg/mg Normal [facility] Comment on above: Performed By: #### D DAVIDSON, MG, PHOS, CMP, LIPID, URIC #### [facility] [address] [place] [address] Dr. Sarmad Patino URIC ACID SERUMon 12-05-2021 Urate [Mass/Vol] 5.2 mg/dL Normal 2.6-6.0 [facility] Comment on above: Performed By: #### D DAVIDSON, MG, PHOS, CMP, LIPID, URIC #### [facility] [address] [place] [address] Dr. Sarmda Patino EVEROLIMU, WHOLE BLOODon EVEROLIMUS 7.0 ng/mL Normal 3.0-8.0 [facility] Comment on above: Result Comment: Perf ormed by LC-MS/MS technology. Performed By: #### D DAVIDSON, MG, PHOS, CMP, LIPID, URIC #### [facility] [address] [place] [address] Dr. Sarmad Patino FK506 (TACROLIMUS) WHOLE BLO ODon 11-10-2021 Tacrolimus (FK506), Blood 6.4 ng/mL Normal 2.0-20.0 [facility] Comment on above: Result Comment: Trou gh (immediately following transplant) 15.0 . Trough (steady state, 2 weeks or more after transplant): 3.0 - 8.0 . Performed by LC-MS/MS technology. Performed By: #### D DAVIDSON, MG, PHOS, CMP, LIPID, URIC #### [facility] [address] [place] [address] Dr. Sarmad Patino BK VIRUS PCR QUANTon 022 BKV DNA QUANT PCR PLASMA Negative Normal Negative [facility] Comment on above: Result Comment: No B K DNA detected. . The linear range of the assay is 22 - 100,000,000 IU/mL. Performed By: #### U MAXI, LIPID, MG, CMP, DBIL, PHOS #### [facility] [address] [place] [address] Dr. Sarmad Patino Log10 BKV DNA Plasma Normal [facility] Comment on above: Performed By: #### U MAXI, LIPID, MG, CMP, DBIL, PHOS #### [facility] [address] [address] [address] Sarmad Patino BILIRUBIN CONJUGATED (DIRECT )on 11-07-2021 BILI, CONJUGATED 0.1 mg/dL Normal 0.0-0.2 [facility] Comment on above: Performed By: #### D DAVIDSON, MG, PHOS, CMP, LIPID, URIC #### [facility] [address] [place] [address] Dr. Sarmad Patino CBC AUTO DIFFon 11-07-2021 BASO # 0.0 103/ul Normal 0.0-0.1 [facility] Comment on above: Performed By: #### D DAVIDSON, MG, PHOS, CMP, LIPID, URIC #### [facility] [address] [place] [address] Dr. Sarmad Patino Basophils/100 WBC (Bld) 0.3 % Normal 0.2-2.0 [facility] Comment on above: Performed By: #### D DAVIDSON, MG, PHOS, CMP, LIPID, URIC #### [facility] [address] [place] [address] Dr. Sarmad Patino EO # 0.1 103/ul Normal 0.0-0.7 [facility] Comment on above: Performed By: #### D DAVIDSON, MG, PHOS, CMP, LIPID, URIC #### [facility] [address] [place] [address] Dr. Sarmad Patino Eosinophils/100 WBC (Bld) 2.1 % Normal 0.9-7.0 [facility] Comment on above: Performed By: #### D DAVIDSON, MG, PHOS, CMP, LIPID, URIC #### [facility] [address] [place] [address] Dr. Sarmad Patino Erythrocyte distribution width (RBC) [Ratio] 13.5 % Normal 11.0-15.0 [facility] Comment on above: Performed By: #### D DAVIDSON, MG, PHOS, CMP, LIPID, URIC #### [facility] [address] [place] [address] Dr. Sarmad Patino Hematocrit (Bld) [Volume fraction] 46.7 % Normal 36.0-48.0 [facility] Comment on above: Performed By: #### D DAVIDSON, MG, PHOS, CMP, LIPID, URIC #### [facility] [address] [place] [address] Dr. Sarmad Patino Hemoglobin (Bld) [Mass/Vol] 15.1 g/dL Normal 12.0-16.0 [facility] Comment on above: Performed By: #### D DAVIDSON, MG, PHOS, CMP, LIPID, URIC #### [facility] [address] [place] [address] Dr. Sarmad Patino IG # 0.03 10e3/ul Normal 0.00-0.03 [facility] Comment on above: Performed By: #### D DAVIDSON, MG, PHOS, CMP, LIPID, URIC #### [facility] [address] [place] [address] Dr. Sarmad Patino IG % 0.5 % Normal 0.0-0.5 [facility] Comment on above: Performed By: #### D DAVIDSON, MG, PHOS, CMP, LIPID, URIC #### [facility] [address] [place] [address] Dr. Sarmad Patino LYMPH # 1.3 103/ul Normal 1.2-3.8 [facility] Comment on above: Performed By: #### D DAVIDSON, MG, PHOS, CMP, LIPID, URIC #### [facility] [address] [place] [address] Dr. Sarmad Patino Lymphocytes/100 WBC (Bld) 19.9 % Critically low 20.5-60.0 [facility] Comment on above: Performed By: #### D DAVIDSON, MG, PHOS, CMP, LIPID, URIC #### [facility] [address] [place] [address] Dr. Sarmad Patino MANUAL DIFF REQ NO Normal [facility] Comment on above: Performed By: #### D DAVIDSON, MG, PHOS, CMP, LIPID, URIC #### [facility] [address] [place] [address] Dr. Sarmad Patino MCH (RBC) [Entitic mass] 28.6 pg Normal 26.7-34.0 [facility] Comment on above: Performed By: #### D DAVIDSON, MG, PHOS, CMP, LIPID, URIC #### [facility] [address] [place] [address] Dr. Sarmad Patino MCHC (RBC) [Mass/Vol] 32.3 g/dL Normal 29.9-35.2 [facility] Comment on above: Performed By: #### D DAVIDSON, MG, PHOS, CMP, LIPID, URIC #### [facility] [address] [place] [address] Dr. Sarmad Patino MCV (RBC) [Entitic vol] 88.4 fL Normal 81.0-99.0 [facility] Comment on above: Performed By: #### D DAVIDSON, MG, PHOS, CMP, LIPID, URIC #### [facility] [address] [place] [address] Dr. Sarmad Patino MONO # 0.8 103/ul Normal 0.3-0.8 [facility] Comment on above: Performed By: #### D DAVIDSON, MG, PHOS, CMP, LIPID, URIC #### [facility] [address] [place] [address] Dr. Sarmad Patino Monocytes/100 WBC (Bld) 12.9 % Critically high 1.7-12.0 [facility] Comment on above: Performed By: #### D DAVIDSON, MG, PHOS, CMP, LIPID, URIC #### [facility] [address] [place] [address] Dr. Sarmad Patino NEUT # 4.0 103/ul Normal 1.4-6.5 [facility] Comment on above: Performed By: #### D DAVIDSON, MG, PHOS, CMP, LIPID, URIC #### [facility] [address] [place] [address] Dr. Sarmad Patino Neutrophils/100 WBC (Bld) 64.3 % Normal 43.0-75.0 [facility] Comment on above: Performed By: #### D DAVIDSON, MG, PHOS, CMP, LIPID, URIC #### [facility] [address] [address] [address] Sarmad Patino Platelet mean volume (Bld) [Entitic vol] 11.3 fL Normal 9.5-13.5 [facility] Comment on above: Performed By: #### D DAVIDSON, MG, PHOS, CMP, LIPID, URIC #### [facility] [address] [address] [address] Sarmad Patino PLT 241 103/ul Normal 150-450 [facility] Comment on above: Performed By: #### D DAVIDSON, MG, PHOS, CMP, LIPID, URIC #### [facility] [address] [address] [address] Sarmad Patino RBC 5.28 106/ul Normal 4.20-5.40 [facility] Comment on above: Performed By: #### D DAVIDSON, MG, PHOS, CMP, LIPID, URIC #### [facility] [address] [place] [address] Dr. Sarmad Patino WBC 6.3 103/ul Normal 4.0-11.0 [facility] Comment on above: Performed By: #### D DAVIDSON, MG, PHOS, CMP, LIPID, URIC #### [facility] [address] [place] [address] Dr. Sarmad Patino GLYCOHEMOGLOBIN A1Con 2021 ADA RECOMMENDATION SEE BELOW Normal [facility] Comment on above: Result Comment: ADA RECOMMENDED LIMIT 4.0 - 6.0 ADA THERAPEUTIC TARGET < 7.0 ACTION SUGGESTED > 7.0 Performed By: #### D DAVIDSON, MG, PHOS, CMP, LIPID, URIC #### [facility] [address] [place] [address] Dr. Sarmad Patino Glucose [Mass/Vol] 120 mg/dL Normal [facility] Comment on above: Performed By: #### D DAVIDSON, MG, PHOS, CMP, LIPID, URIC #### [facility] [address] [place] [address] Dr. Sarmad Patino HbA1c (Bld) [Mass fraction] 5.8 % Normal 4.5-6.2 [facility] Comment on above: Performed By: #### D DAVIDSON, MG, PHOS, CMP, LIPID, URIC #### [facility] [address] [address] [address] Sarmad Patino LIPID PROFILEon 11-07-2021 CHOL-HDL RATIO NORM SEE BELOW Normal [facility] Comment on above: Result Comment: 3.3 - 4.4 LOW RISK 4.4 - 7.1 AVERAGE RISK 7.1 - 11.0 MODERATE RISK >11.0 HIGH RISK Performed By: #### D DAVIDSON, MG, PHOS, CMP, LIPID, URIC #### [facility] [address] [address] [address] Sarmad Patino Cholesterol [Mass/Vol] 157 mg/dL Normal <=200 [facility] Comment on above: Performed By: #### D DAVIDSON, MG, PHOS, CMP, LIPID, URIC #### [facility] [address] [address] [address] Sarmad Patino Cholesterol in HDL [Mass/Vol] 48 mg/dL Normal 40-60 [facility] Comment on above: Performed By: #### D DAVIDSON, MG, PHOS, CMP, LIPID, URIC #### [facility] [address] [address] [address] Sarmad Patino Cholesterol in LDL [Mass/Vol] 89.6 mg/dL Normal [facility] Comment on above: Performed By: #### D DAVIDSON, MG, PHOS, CMP, LIPID, URIC #### [facility] [address] [address] [address] Sarmad Patino Cholesterol.total/Cho lesterol in HDL [Mass ratio] 3.3 {ratio} Normal [facility] Comment on above: Performed By: #### D DAVIDSON, MG, PHOS, CMP, LIPID, URIC #### [facility] [address] [address] [address] Sarmad Patino HDL NORMAL > or = 60 mg/dl - LO W CARDIOVASCULAR RISK <40 mg/dl - HIGH CARDIOVASCULAR RISK Normal [facility] Comment on above: Performed By: #### D DAVIDSON, MG, PHOS, CMP, LIPID, URIC #### [facility] [address] [address] [address] Sarmad Patino LDL CALC NORMAL SEE BELOW Normal [facility] Comment on above: Result Comment: <100 mg/dl OPTIMAL 100 - 129 mg/dl NEAR OR ABOVE OPTIMAL 130 - 159 mg/dl BORDERLINE HIGH 160 - 189 mg/dl HIGH >190 mg/dl VERY HIGH Performed By: #### D DAVIDSON, MG, PHOS, CMP, LIPID, URIC #### [facility] [address] [address] [address] Sarmad Patino Triglyceride [Mass/Vol] 97 mg/dL Normal <=150 [facility] Comment on above: Performed By: #### D DAVIDSON, MG, PHOS, CMP, LIPID, URIC #### [facility] [address] [address] [address] Sarmad Patino VLDL CALC 19.4 mg/dL Normal [facility] Comment on above: Performed By: #### D DAVIDSON, MG, PHOS, CMP, LIPID, URIC #### [facility] [address] [address] [address] Sarmad Patino MAGNESIUMon 11-07-2021 Magnesium [Mass/Vol] 1.9 mg/dL Normal 1.8-2.4 [facility] Comment on above: Performed By: #### D DAVIDSON, MG, PHOS, CMP, LIPID, URIC #### [facility] [address] [address] [address] Sarmad Patino PHOSPHORUSon 11-07-2021 Phosphate [Mass/Vol] 3.4 mg/dL Normal 2.6-4.7 [facility] Comment on above: Performed By: #### D DAVIDOSN, MG, PHOS, CMP, LIPID, URIC #### [facility] [address] [address] [address] Sarmad Patino PROF 14(COMP METB)on 022 Albumin [Mass/Vol] 3.6 g/dL Normal 3.4-5.0 [facility] Comment on above: Performed By: #### D DAVIDSON, MG, PHOS, CMP, LIPID, URIC #### [facility] [address] [address] [address] Sarmad Patino Albumin/Globulin [Mass ratio] 0.9 {ratio} Normal [facility] Comment on above: Performed By: #### D DAVIDSON, MG, PHOS, CMP, LIPID, URIC #### [facility] [address] [address] [address] Sarmad Patino ALP [Catalytic activity/Vol] 158 U/L Critically high 46-116 [facility] Comment on above: Performed By: #### D DAVIDSON, MG, PHOS, CMP, LIPID, URIC #### [facility] [address] [address] [address] Sarmad Patino ALT [Catalytic activity/Vol] 23 U/L Normal 14-59 [facility] Comment on above: Performed By: #### D DAVIDSON, MG, PHOS, CMP, LIPID, URIC #### [facility] [address] [place] [address] Dr. Sarmad Patino Anion gap [Moles/Vol] 14.8 mmol/L Normal [facility] Comment on above: Performed By: #### D DAVIDSON, MG, PHOS, CMP, LIPID, URIC #### [facility] [address] [place] [address] Dr. Sarmad Patino AST [Catalytic activity/Vol] 18 U/L Normal 15-37 [facility] Comment on above: Performed By: #### D DAVIDSON, MG, PHOS, CMP, LIPID, URIC #### [facility] [address] [place] [address] Dr. Sarmad Patino Bilirubin [Mass/Vol] 0.4 mg/dL Normal 0.2-1.0 [facility] Comment on above: Performed By: #### D DAVIDSON, MG, PHOS, CMP, LIPID, URIC #### [facility] [address] [address] [address] Sarmad Patino Calcium [Mass/Vol] 9.3 mg/dL Normal 8.5-10.1 [facility] Comment on above: Performed By: #### D DAVIDSON, MG, PHOS, CMP, LIPID, URIC #### [facility] [address] [place] [address] Dr. Sarmad Patino Chloride [Moles/Vol] 105 mmol/L Normal 98-107 [facility] Comment on above: Performed By: #### D DAVIDSON, MG, PHOS, CMP, LIPID, URIC #### [facility] [address] [address] [address] Sarmad Patino CO2 [Moles/Vol] 26.1 mmol/L Normal 21.0-32.0 [facility] Comment on above: Performed By: #### D DAVIDSON, MG, PHOS, CMP, LIPID, URIC #### [facility] [address] [address] [address] Sarmad Patino Creatinine [Mass/Vol] 0.84 mg/dL Normal 0.55-1.02 [facility] Comment on above: Performed By: #### D DAVIDSON, MG, PHOS, CMP, LIPID, URIC #### [facility] [address] [place] [address] Dr. Sarmad Patino EGFR-AF EQUATORIAL GUINEAN >60 Normal >=60 [facility] Comment on above: Performed By: #### D DAVIDSON, MG, PHOS, CMP, LIPID, URIC #### [facility] [address] [place] [address] Dr. Sarmad Patino EGFR-NON AF EQUATORIAL GUINEAN >60 Normal >=60 [facility] Comment on above: Performed By: #### D DAVIDSON, MG, PHOS, CMP, LIPID, URIC #### [facility] [address] [place] [address] Dr. Sarmad Patino Globulin (S) [Mass/Vol] 3.8 g/dL Normal [facility] Comment on above: Performed By: #### D DAVIDSON, MG, PHOS, CMP, LIPID, URIC #### [facility] [address] [address] [address] Sarmad Patino Glucose [Mass/Vol] 97 mg/dL Normal 74-106 [facility] Comment on above: Performed By: #### D DAVIDSON, MG, PHOS, CMP, LIPID, URIC #### [facility] [address] [place] [address] Dr. Sarmad Patino Potassium [Moles/Vol] 3.9 mmol/L Normal 3.5-5.1 [facility] Comment on above: Performed By: #### D DAVIDSON, MG, PHOS, CMP, LIPID, URIC #### [facility] [address] [address] [address] Sarmad Patino Protein [Mass/Vol] 7.4 g/dL Normal 6.4-8.2 [facility] Comment on above: Performed By: #### D DAVIDSON, MG, PHOS, CMP, LIPID, URIC #### [facility] [address] [address] [address] Sarmda Patino Sodium [Moles/Vol] 142 mmol/L Normal 136-145 [facility] Comment on above: Performed By: #### D DAVIDSON, MG, PHOS, CMP, LIPID, URIC #### [facility] [address] [place] [address] Dr. Sarmad Patino Urea nitrogen [Mass/Vol] 21.0 mg/dL Critically high 7.0-18.0 [facility] Comment on above: Performed By: #### D DAVIDSON, MG, PHOS, CMP, LIPID, URIC #### [facility] [address] [place] [address] Dr. Sarmad Patino Urea nitrogen/Creatinine [Mass ratio] 25.0 mg/mg Normal [facility] Comment on above: Performed By: #### D DAVIDSON, MG, PHOS, CMP, LIPID, URIC #### [facility] [address] [place] [address] Dr. Sarmad Patino URIC ACID SERUMon 11-07-2021 Urate [Mass/Vol] 5.1 mg/dL Normal 2.6-6.0 [facility] Comment on above: Performed By: #### D DAVIDSON, MG, PHOS, CMP, LIPID, URIC #### [facility] [address] [place] [address] Dr. Sarmad Patino BOX TEST SENT OUTon 10-16-19 22 SENT TO REF LAB 10/15/2021 Normal [facility] Comment on above: Performed By: #### D DAVIDSON, MG, PHOS, CMP, LIPID, URIC #### [facility] [address] [place] [address] Dr. Sarmad CHRISTIEMU, WHOLE BLOODon EVEROLIMUS 6.7 ng/mL Normal 3.0-8.0 [facility] Comment on above: Result Comment: Perf ormed by LC-MS/MS technology. Performed By: #### D DAVIDSON, MG, PHOS, CMP, LIPID, URIC #### [facility] [address] [place] [address] Dr. Sarmad Patino FK506 (TACROLIMUS) WHOLE BLO ODon 10-10-2021 Tacrolimus (FK506), Blood 5.9 ng/mL Normal 2.0-20.0 [facility] Comment on above: Result Comment: Trou gh (immediately following transplant) 15.0 . Trough (steady state, 2 weeks or more after transplant): 3.0 - 8.0 . Performed by LC-MS/MS technology. Performed By: #### D DAVIDSON, MG, PHOS, CMP, LIPID, URIC #### [facility] [address] [place] [address] Dr. Sarmad Patino BILIRUBIN CONJUGATED (DIRECT )on 10-08-2021 BILI, CONJUGATED 0.1 mg/dL Normal 0.0-0.2 [facility] Comment on above: Performed By: #### U MAXI, LIPID, MG, CMP, DBIL, PHOS #### [facility] [address] [place] [address] Dr. Sarmad Patino CBC AUTO DIFFon 10-08-2021 BASO # 0.0 103/ul Normal 0.0-0.1 [facility] Comment on above: Performed By: #### D DAVIDSON, MG, PHOS, CMP, LIPID, URIC #### [facility] [address] [place] [address] Dr. Sarmad Patino Basophils/100 WBC (Bld) 0.1 % Critically low 0.2-2.0 [facility] Comment on above: Performed By: #### D DAVIDSON, MG, PHOS, CMP, LIPID, URIC #### [facility] [address] [place] [address] Dr. Sarmad Patino EO # 0.1 103/ul Normal 0.0-0.7 [facility] Comment on above: Performed By: #### D DAVIDSON, MG, PHOS, CMP, LIPID, URIC #### [facility] [address] [place] [address] Dr. Sramad Patino Eosinophils/100 WBC (Bld) 1.4 % Normal 0.9-7.0 [facility] Comment on above: Performed By: #### D DAVIDSON, MG, PHOS, CMP, LIPID, URIC #### [facility] [address] [place] [address] Dr. Sarmad Patino Erythrocyte distribution width (RBC) [Ratio] 13.6 % Normal 11.0-15.0 [facility] Comment on above: Performed By: #### D DAVIDSON, MG, PHOS, CMP, LIPID, URIC #### [facility] [address] [place] [address] Dr. Sarmad Patino Hematocrit (Bld) [Volume fraction] 47.5 % Normal 36.0-48.0 [facility] Comment on above: Performed By: #### D DAVIDSON, MG, PHOS, CMP, LIPID, URIC #### [facility] [address] [place] [address] Dr. Sarmad Patino Hemoglobin (Bld) [Mass/Vol] 15.7 g/dL Normal 12.0-16.0 [facility] Comment on above: Performed By: #### D DAVIDSON, MG, PHOS, CMP, LIPID, URIC #### [facility] [address] [place] [address] Dr. Sarmad Patino IG # 0.04 10e3/ul Critically high 0.00-0.03 [facility] Comment on above: Performed By: #### D DAVIDSON, MG, PHOS, CMP, LIPID, URIC #### [facility] [address] [place] [address] Dr. Sarmad Patino IG % 0.5 % Normal 0.0-0.5 [facility] Comment on above: Performed By: #### D DAVIDSON, MG, PHOS, CMP, LIPID, URIC #### [facility] [address] [place] [address] Dr. Sarmad Patino LYMPH # 1.3 103/ul Normal 1.2-3.8 [facility] Comment on above: Performed By: #### D DAVIDSON, MG, PHOS, CMP, LIPID, URIC #### [facility] [address] [place] [address] Dr. Sarmad Patino Lymphocytes/100 WBC (Bld) 15.4 % Critically low 20.5-60.0 [facility] Comment on above: Performed By: #### D DAVIDSON, MG, PHOS, CMP, LIPID, URIC #### [facility] [address] [place] [address] Dr. Sarmad Patino MANUAL DIFF REQ NO Normal [facility] Comment on above: Performed By: #### D DAVIDSON, MG, PHOS, CMP, LIPID, URIC #### [facility] [address] [place] [address] Dr. Sarmad Patino MCH (RBC) [Entitic mass] 29.1 pg Normal 26.7-34.0 [facility] Comment on above: Performed By: #### D DAVIDSON, MG, PHOS, CMP, LIPID, URIC #### [facility] [address] [place] [address] Dr. Sarmad Patino MCHC (RBC) [Mass/Vol] 33.1 g/dL Normal 29.9-35.2 [facility] Comment on above: Performed By: #### D DAVIDSON, MG, PHOS, CMP, LIPID, URIC #### [facility] [address] [place] [address] Dr. Sarmad Patino MCV (RBC) [Entitic vol] 88.0 fL Normal 81.0-99.0 [facility] Comment on above: Performed By: #### D DAVIDSON, MG, PHOS, CMP, LIPID, URIC #### [facility] [address] [place] [address] Dr. Sarmad Patino MONO # 0.9 103/ul Critically high 0.3-0.8 [facility] Comment on above: Performed By: #### D DAVIDSON, MG, PHOS, CMP, LIPID, URIC #### [facility] [address] [place] [address] Dr. Sarmad Patino Monocytes/100 WBC (Bld) 10.2 % Normal 1.7-12.0 [facility] Comment on above: Performed By: #### D DAVIDSON, MG, PHOS, CMP, LIPID, URIC #### [facility] [address] [address] [address] Sarmad Patino NEUT # 6.1 103/ul Normal 1.4-6.5 [facility] Comment on above: Performed By: #### D DAVIDSON, MG, PHOS, CMP, LIPID, URIC #### [facility] [address] [address] [address] Sarmad Patino Neutrophils/100 WBC (Bld) 72.4 % Normal 43.0-75.0 [facility] Comment on above: Performed By: #### D DAVIDSON, MG, PHOS, CMP, LIPID, URIC #### [facility] [address] [place] [address] Dr. Sarmad Patino Platelet mean volume (Bld) [Entitic vol] 11.1 fL Normal 9.5-13.5 [facility] Comment on above: Performed By: #### D DAVIDSON, MG, PHOS, CMP, LIPID, URIC #### [facility] [address] [place] [address] Dr. Sarmad Patino PLT 213 103/ul Normal 150-450 [facility] Comment on above: Performed By: #### D DAVIDSON, MG, PHOS, CMP, LIPID, URIC #### [facility] [address] [place] [address] Dr. Sarmad Patino RBC 5.40 106/ul Normal 4.20-5.40 [facility] Comment on above: Performed By: #### D DAVIDSON, MG, PHOS, CMP, LIPID, URIC #### [facility] [address] [place] [address] Dr. Sarmad Patino WBC 8.4 103/ul Normal 4.0-11.0 [facility] Comment on above: Performed By: #### D DAVIDSON, MG, PHOS, CMP, LIPID, URIC #### [facility] [address] [place] [address] Dr. Sarmad Patino LIPID PROFILEon 10-08-2021 CHOL-HDL RATIO NORM SEE BELOW Normal [facility] Comment on above: Result Comment: 3.3 - 4.4 LOW RISK 4.4 - 7.1 AVERAGE RISK 7.1 - 11.0 MODERATE RISK >11.0 HIGH RISK Performed By: #### D DAVIDSON, MG, PHOS, CMP, LIPID, URIC #### [facility] [address] [address] [address] Sarmad Patino Cholesterol [Mass/Vol] 155 mg/dL Normal <=200 [facility] Comment on above: Performed By: #### D DAVIDSON, MG, PHOS, CMP, LIPID, URIC #### [facility] [address] [address] [address] Sarmad Patino Cholesterol in HDL [Mass/Vol] 49 mg/dL Normal 40-60 [facility] Comment on above: Performed By: #### D DAVIDSON, MG, PHOS, CMP, LIPID, URIC #### [facility] [address] [place] [address] Dr. Sarmad Patino Cholesterol in LDL [Mass/Vol] 73.8 mg/dL Normal [facility] Comment on above: Performed By: #### D DAVIDSON, MG, PHOS, CMP, LIPID, URIC #### [facility] [address] [address] [address] Sarmad Patino Cholesterol.total/Cho lesterol in HDL [Mass ratio] 3.2 {ratio} Normal [facility] Comment on above: Performed By: #### D DAVIDSON, MG, PHOS, CMP, LIPID, URIC #### [facility] [address] [address] [address] Sarmad Patino HDL NORMAL > or = 60 mg/dl - LO W CARDIOVASCULAR RISK <40 mg/dl - HIGH CARDIOVASCULAR RISK Normal [facility] Comment on above: Performed By: #### D DAVIDSON, MG, PHOS, CMP, LIPID, URIC #### [facility] [address] [address] [address] Sarmad Patino LDL CALC NORMAL SEE BELOW Normal [facility] Comment on above: Result Comment: <100 mg/dl OPTIMAL 100 - 129 mg/dl NEAR OR ABOVE OPTIMAL 130 - 159 mg/dl BORDERLINE HIGH 160 - 189 mg/dl HIGH >190 mg/dl VERY HIGH Performed By: #### D DAVIDSON, MG, PHOS, CMP, LIPID, URIC #### [facility] [address] [address] [address] Sarmad Patino Triglyceride [Mass/Vol] 161 mg/dL Critically high <=150 [facility] Comment on above: Performed By: #### D DAVIDSON, MG, PHOS, CMP, LIPID, URIC #### [facility] [address] [place] [address] Dr. Sarmad Patino VLDL CALC 32.2 mg/dL Normal [facility] Comment on above: Performed By: #### D DAVIDSON, MG, PHOS, CMP, LIPID, URIC #### [facility] [address] [place] [address] Dr. Sarmad Patino MAGNESIUMon 10-08-2021 Magnesium [Mass/Vol] 1.6 mg/dL Critically low 1.8-2.4 [facility] Comment on above: Performed By: #### U MAXI, LIPID, MG, CMP, DBIL, PHOS #### [facility] [address] [place] [address] Dr. Sarmad Patino PHOSPHORUSon 10-08-2021 Phosphate [Mass/Vol] 3.5 mg/dL Normal 2.6-4.7 [facility] Comment on above: Performed By: #### U MAXI, LIPID, MG, CMP, DBIL, PHOS #### [facility] [address] [place] [address] Dr. Sarmad Patino PROF 14(COMP METB)on 022 Albumin [Mass/Vol] 3.6 g/dL Normal 3.4-5.0 [facility] Comment on above: Performed By: #### D DAVIDSON, MG, PHOS, CMP, LIPID, URIC #### [facility] [address] [place] [address] Dr. Sarmad Patino Albumin/Globulin [Mass ratio] 0.9 {ratio} Normal [facility] Comment on above: Performed By: #### D DAVIDSON, MG, PHOS, CMP, LIPID, URIC #### [facility] [address] [place] [address] Dr. Sarmad Patino ALP [Catalytic activity/Vol] 150 U/L Critically high 46-116 [facility] Comment on above: Performed By: #### D DAVIDSON, MG, PHOS, CMP, LIPID, URIC #### [facility] [address] [address] [address] Sarmad Patino ALT [Catalytic activity/Vol] 21 U/L Normal 14-59 [facility] Comment on above: Performed By: #### D DAVIDSON, MG, PHOS, CMP, LIPID, URIC #### [facility] [address] [place] [address] Dr. Sarmad Patino Anion gap [Moles/Vol] 14.0 mmol/L Normal Th e [facility] Comment on above: Performed By: #### D DAVIDSON, MG, PHOS, CMP, LIPID, URIC #### [facility] [address] [place] [address] Dr. Sarmad Patino AST [Catalytic activity/Vol] 13 U/L Critically low 15-37 [facility] Comment on above: Performed By: #### D DAVIDSON, MG, PHOS, CMP, LIPID, URIC #### [facility] [address] [place] [address] Dr. Sarmad Patino Bilirubin [Mass/Vol] 0.5 mg/dL Normal 0.2-1.0 [facility] Comment on above: Performed By: #### D DAVIDSON, MG, PHOS, CMP, LIPID, URIC #### [facility] [address] [address] [address] Sarmad Patino Calcium [Mass/Vol] 9.8 mg/dL Normal 8.5-10.1 [facility] Comment on above: Performed By: #### D DAVIDSON, MG, PHOS, CMP, LIPID, URIC #### [facility] [address] [address] [address] Sarmad Patino Chloride [Moles/Vol] 105 mmol/L Normal 98-107 [facility] Comment on above: Performed By: #### D DAVIDSON, MG, PHOS, CMP, LIPID, URIC #### [facility] [address] [address] [address] Sarmad Patino CO2 [Moles/Vol] 25.9 mmol/L Normal 21.0-32.0 [facility] Comment on above: Performed By: #### D DAVIDSON, MG, PHOS, CMP, LIPID, URIC #### [facility] [address] [address] [address] Sarmad Patino Creatinine [Mass/Vol] 0.81 mg/dL Normal 0.55-1.02 [facility] Comment on above: Performed By: #### D DAVIDSON, MG, PHOS, CMP, LIPID, URIC #### [facility] [address] [address] [address] Sarmad Patino EGFR-AF EQUATORIAL GUINEAN >60 Normal >=60 [facility] Comment on above: Performed By: #### D DAVIDSON, MG, PHOS, CMP, LIPID, URIC #### [facility] [address] [address] [address] Sarmad Patino EGFR-NON AF EQUATORIAL GUINEAN >60 Normal >=60 [facility] Comment on above: Performed By: #### D DAVIDSON, MG, PHOS, CMP, LIPID, URIC #### [facility] [address] [address] [address] Sarmad Patino Globulin (S) [Mass/Vol] 3.8 g/dL Normal [facility] Comment on above: Performed By: #### D DAVIDSON, MG, PHOS, CMP, LIPID, URIC #### [facility] [address] [address] [address] Sarmad Patino Glucose [Mass/Vol] 101 mg/dL Normal 74-106 [facility] Comment on above: Performed By: #### D DAVIDSON, MG, PHOS, CMP, LIPID, URIC #### [facility] [address] [address] [address] Sarmad Patino Potassium [Moles/Vol] 3.9 mmol/L Normal 3.5-5.1 [facility] Comment on above: Performed By: #### D DAVIDSON, MG, PHOS, CMP, LIPID, URIC #### [facility] [address] [address] [address] Sarmad Patino Protein [Mass/Vol] 7.4 g/dL Normal 6.4-8.2 [facility] Comment on above: Performed By: #### D DAVIDSON, MG, PHOS, CMP, LIPID, URIC #### [facility] [address] [place] [address] Dr. Sarmad Patino Sodium [Moles/Vol] 141 mmol/L Normal 136-145 [facility] Comment on above: Performed By: #### D DAVIDSON, MG, PHOS, CMP, LIPID, URIC #### [facility] [address] [place] [address] Dr. Sarmad Patino Urea nitrogen [Mass/Vol] 18.0 mg/dL Normal 7.0-18.0 [facility] Comment on above: Performed By: #### D DAVIDSON, MG, PHOS, CMP, LIPID, URIC #### [facility] [address] [place] [address] Dr. Sarmad Patino Urea nitrogen/Creatinine [Mass ratio] 22.2 mg/mg Normal [facility] Comment on above: Performed By: #### D DAVIDSON, MG, PHOS, CMP, LIPID, URIC #### [facility] [address] [place] [address] Dr. Sarmad Patino URIC ACID SERUMon 10-08-2021 Urate [Mass/Vol] 4.7 mg/dL Normal 2.6-6.0 [facility] Comment on above: Performed By: #### D DAVIDSON, MG, PHOS, CMP, LIPID, URIC #### [facility] [address] [place] [address] Dr. Sarmad SALAZAROLIMU, WHOLE BLOODon EVEROLIMUS 8.0 ng/mL Normal 3.0-8.0 [facility] Comment on above: Result Comment: Perf ormed by LC-MS/MS technology. Performed By: #### U MAXI, LIPID, MG, CMP, DBIL, PHOS #### [facility] [address] [place] [address] Dr. Sarmad Patino FK506 (TACROLIMUS) WHOLE BLO ODon 09-14-2021 Tacrolimus (FK506), Blood 9.3 ng/mL Normal 2.0-20.0 [facility] Comment on above: Result Comment: Trou gh (immediately following transplant) 15.0 . Trough (steady state, 2 weeks or more after transplant): 3.0 - 8.0 . Performed by LC-MS/MS technology. Performed By: #### U MAXI, LIPID, MG, CMP, DBIL, PHOS #### [facility] [address] [place] [address] Dr. Sarmad Patino BK VIRUS PCR QUANTon 022 BKV DNA QUANT PCR PLASMA Negative Normal Negative [facility] Comment on above: Result Comment: No B K DNA detected. . The linear range of the assay is 22 - 100,000,000 IU/mL. Performed By: #### D DAVIDSON, MG, PHOS, CMP, LIPID, URIC #### [facility] [address] [place] [address] Dr. Sarmad Patino Log10 BKV DNA Plasma Normal [facility] Comment on above: Performed By: #### D DAVIDSON, MG, PHOS, CMP, LIPID, URIC #### [facility] [address] [place] [address] Dr. Sarmad Patino BILIRUBIN CONJUGATED (DIRECT )on 09-10-2021 BILI, CONJUGATED 0.1 mg/dL Normal 0.0-0.2 [facility] Comment on above: Performed By: #### D DAVIDSON, MG, PHOS, CMP, LIPID, URIC #### [facility] [address] [place] [address] Dr. Sarmad Patino CBC AUTO DIFFon 09-10-2021 BASO # 0.0 103/ul Normal 0.0-0.1 [facility] Comment on above: Performed By: #### D DAVIDSON, MG, PHOS, CMP, LIPID, URIC #### [facility] [address] [place] [address] Dr. Sarmad Patino Basophils/100 WBC (Bld) 0.1 % Critically low 0.2-2.0 [facility] Comment on above: Performed By: #### D DAVIDSON, MG, PHOS, CMP, LIPID, URIC #### [facility] [address] [place] [address] Dr. Sarmad Patino EO # 0.2 103/ul Normal 0.0-0.7 [facility] Comment on above: Performed By: #### D DAVIDSON, MG, PHOS, CMP, LIPID, URIC #### [facility] [address] [place] [address] Dr. Sarmad Patino Eosinophils/100 WBC (Bld) 2.3 % Normal 0.9-7.0 [facility] Comment on above: Performed By: #### D DAVIDSON, MG, PHOS, CMP, LIPID, URIC #### [facility] [address] [place] [address] Dr. Sarmad Patino Erythrocyte distribution width (RBC) [Ratio] 13.6 % Normal 11.0-15.0 [facility] Comment on above: Performed By: #### D DAVIDSON, MG, PHOS, CMP, LIPID, URIC #### [facility] [address] [place] [address] Dr. Sarmad Patino Hematocrit (Bld) [Volume fraction] 45.1 % Normal 36.0-48.0 [facility] Comment on above: Performed By: #### D DAVIDSON, MG, PHOS, CMP, LIPID, URIC #### [facility] [address] [place] [address] Dr. Sarmad Patino Hemoglobin (Bld) [Mass/Vol] 14.7 g/dL Normal 12.0-16.0 [facility] Comment on above: Performed By: #### D DAVIDSON, MG, PHOS, CMP, LIPID, URIC #### [facility] [address] [place] [address] Dr. Sarmad Patino IG # 0.03 10e3/ul Normal 0.00-0.03 [facility] Comment on above: Performed By: #### D DAVIDSON, MG, PHOS, CMP, LIPID, URIC #### [facility] [address] [place] [address] Dr. Sarmad Patino IG % 0.4 % Normal 0.0-0.5 [facility] Comment on above: Performed By: #### D DAVIDSON, MG, PHOS, CMP, LIPID, URIC #### [facility] [address] [place] [address] Dr. Sarmad Patino LYMPH # 1.3 103/ul Normal 1.2-3.8 [facility] Comment on above: Performed By: #### D DAVIDSON, MG, PHOS, CMP, LIPID, URIC #### [facility] [address] [place] [address] Dr. Sarmad Patino Lymphocytes/100 WBC (Bld) 18.9 % Critically low 20.5-60.0 [facility] Comment on above: Performed By: #### D DAVIDSON, MG, PHOS, CMP, LIPID, URIC #### [facility] [address] [place] [address] Dr. Sarmad Patino MANUAL DIFF REQ NO Normal [facility] Comment on above: Performed By: #### D DAVIDSON, MG, PHOS, CMP, LIPID, URIC #### [facility] [address] [place] [address] Dr. Sarmad Patino MCH (RBC) [Entitic mass] 29.0 pg Normal 26.7-34.0 [facility] Comment on above: Performed By: #### D DAVIDSON, MG, PHOS, CMP, LIPID, URIC #### [facility] [address] [place] [address] Dr. Sarmad Patino MCHC (RBC) [Mass/Vol] 32.6 g/dL Normal 29.9-35.2 [facility] Comment on above: Performed By: #### D DAVIDSON, MG, PHOS, CMP, LIPID, URIC #### [facility] [address] [place] [address] Dr. Sarmad Patino MCV (RBC) [Entitic vol] 89.0 fL Normal 81.0-99.0 [facility] Comment on above: Performed By: #### D DAVIDSON, MG, PHOS, CMP, LIPID, URIC #### [facility] [address] [place] [address] Dr. Sarmad Patino MONO # 0.8 103/ul Normal 0.3-0.8 [facility] Comment on above: Performed By: #### D DAVIDSON, MG, PHOS, CMP, LIPID, URIC #### [facility] [address] [place] [address] Dr. Sarmad Patino Monocytes/100 WBC (Bld) 11.9 % Normal 1.7-12.0 [facility] Comment on above: Performed By: #### D DAVIDSON, MG, PHOS, CMP, LIPID, URIC #### [facility] [address] [address] [address] Sarmad Patino NEUT # 4.6 103/ul Normal 1.4-6.5 [facility] Comment on above: Performed By: #### D DAVIDSON, MG, PHOS, CMP, LIPID, URIC #### [facility] [address] [address] [address] Sarmad Patino Neutrophils/100 WBC (Bld) 66.4 % Normal 43.0-75.0 [facility] Comment on above: Performed By: #### D DAVIDSON, MG, PHOS, CMP, LIPID, URIC #### [facility] [address] [address] [address] Sarmad Patino Platelet mean volume (Bld) [Entitic vol] 10.6 fL Normal 9.5-13.5 [facility] Comment on above: Performed By: #### D DAVIDSON, MG, PHOS, CMP, LIPID, URIC #### [facility] [address] [address] [address] Sarmad Patino PLT 233 103/ul Normal 150-450 [facility] Comment on above: Performed By: #### D DAVIDSON, MG, PHOS, CMP, LIPID, URIC #### [facility] [address] [address] [address] Sarmad Patino RBC 5.07 106/ul Normal 4.20-5.40 [facility] Comment on above: Performed By: #### D DAVIDSON, MG, PHOS, CMP, LIPID, URIC #### [facility] [address] [address] [address] Sarmad Patino WBC 6.9 103/ul Normal 4.0-11.0 [facility] Comment on above: Performed By: #### D DAVIDSON, MG, PHOS, CMP, LIPID, URIC #### [facility] [address] [address] [address] Sarmad Patino GLYCOHEMOGLOBIN A1Con 2021 ADA RECOMMENDATION SEE BELOW Normal [facility] Comment on above: Result Comment: ADA RECOMMENDED LIMIT 4.0 - 6.0 ADA THERAPEUTIC TARGET < 7.0 ACTION SUGGESTED > 7.0 Performed By: #### D DAVIDSON, MG, PHOS, CMP, LIPID, URIC #### [facility] [address] [address] [address] Sarmad Patino Glucose [Mass/Vol] 120 mg/dL Normal [facility] Comment on above: Performed By: #### D DAVIDSON, MG, PHOS, CMP, LIPID, URIC #### [facility] [address] [address] [address] Sarmad Patino HbA1c (Bld) [Mass fraction] 5.8 % Normal 4.5-6.2 [facility] Comment on above: Performed By: #### D DAVIDSON, MG, PHOS, CMP, LIPID, URIC #### [facility] [address] [address] [address] Sarmad Patino LIPID PROFILEon 09-10-2021 CHOL-HDL RATIO NORM SEE BELOW Normal [facility] Comment on above: Result Comment: 3.3 - 4.4 LOW RISK 4.4 - 7.1 AVERAGE RISK 7.1 - 11.0 MODERATE RISK >11.0 HIGH RISK Performed By: #### D DAVIDSON, MG, PHOS, CMP, LIPID, URIC #### [facility] [address] [address] [address] Sarmad Patino Cholesterol [Mass/Vol] 150 mg/dL Normal <=200 [facility] Comment on above: Performed By: #### D DAVIDSON, MG, PHOS, CMP, LIPID, URIC #### [facility] [address] [address] [address] Sarmad Patino Cholesterol in HDL [Mass/Vol] 47 mg/dL Normal 40-60 [facility] Comment on above: Performed By: #### D DAVIDSON, MG, PHOS, CMP, LIPID, URIC #### [facility] [address] [address] [address] Sarmad Patino Cholesterol in LDL [Mass/Vol] 78.4 mg/dL Normal [facility] Comment on above: Performed By: #### D DAVIDSON, MG, PHOS, CMP, LIPID, URIC #### [facility] [address] [address] [address] Sarmad Patino Cholesterol.total/Cho lesterol in HDL [Mass ratio] 3.2 {ratio} Normal [facility] Comment on above: Performed By: #### D DAVIDSON, MG, PHOS, CMP, LIPID, URIC #### [facility] [address] [address] [address] Sarmad Patino HDL NORMAL > or = 60 mg/dl - LO W CARDIOVASCULAR RISK <40 mg/dl - HIGH CARDIOVASCULAR RISK Normal [facility] Comment on above: Performed By: #### D DAVIDSON, MG, PHOS, CMP, LIPID, URIC #### [facility] [address] [place] [address] Dr. Sarmad Patino LDL CALC NORMAL SEE BELOW Normal [facility] Comment on above: Result Comment: <100 mg/dl OPTIMAL 100 - 129 mg/dl NEAR OR ABOVE OPTIMAL 130 - 159 mg/dl BORDERLINE HIGH 160 - 189 mg/dl HIGH >190 mg/dl VERY HIGH Performed By: #### D DAVIDSON, MG, PHOS, CMP, LIPID, URIC #### [facility] [address] [address] [address] Sarmad Patino Triglyceride [Mass/Vol] 123 mg/dL Normal <=150 [facility] Comment on above: Performed By: #### D DAVIDSON, MG, PHOS, CMP, LIPID, URIC #### [facility] [address] [place] [address] Dr. Sarmad Patino VLDL CALC 24.6 mg/dL Normal [facility] Comment on above: Performed By: #### D DAVIDSON, MG, PHOS, CMP, LIPID, URIC #### [facility] [address] [place] [address] Dr. Sarmad Patino MAGNESIUMon 09-10-2021 Magnesium [Mass/Vol] 1.5 mg/dL Critically low 1.8-2.4 [facility] Comment on above: Performed By: #### D DAVIDSON, MG, PHOS, CMP, LIPID, URIC #### [facility] [address] [place] [address] Dr. Sarmad Patino PHOSPHORUSon 09-10-2021 Phosphate [Mass/Vol] 3.8 mg/dL Normal 2.6-4.7 [facility] Comment on above: Performed By: #### D DAVIDSON, MG, PHOS, CMP, LIPID, URIC #### [facility] [address] [place] [address] Dr. Sarmad Patino PROF 14(COMP METB)on 022 Albumin [Mass/Vol] 3.4 g/dL Normal 3.4-5.0 [facility] Comment on above: Performed By: #### D DAVIDSON, MG, PHOS, CMP, LIPID, URIC #### [facility] [address] [place] [address] Dr. Sarmad Patino Albumin/Globulin [Mass ratio] 0.9 {ratio} Normal [facility] Comment on above: Performed By: #### D DAVIDSON, MG, PHOS, CMP, LIPID, URIC #### [facility] [address] [place] [address] Dr. Sarmad Patino ALP [Catalytic activity/Vol] 143 U/L Critically high 46-116 [facility] Comment on above: Performed By: #### D DAVIDSON, MG, PHOS, CMP, LIPID, URIC #### [facility] [address] [place] [address] Dr. Sarmad Patino ALT [Catalytic activity/Vol] 19 U/L Normal 14-59 [facility] Comment on above: Performed By: #### D DAVIDSON, MG, PHOS, CMP, LIPID, URIC #### [facility] [address] [place] [address] Dr. Sarmad Patino Anion gap [Moles/Vol] 13.4 mmol/L Normal [facility] Comment on above: Performed By: #### D DAVIDSON, MG, PHOS, CMP, LIPID, URIC #### [facility] [address] [place] [address] Dr. Sarmad Patino AST [Catalytic activity/Vol] 24 U/L Normal 15-37 [facility] Comment on above: Performed By: #### D DAVIDSON, MG, PHOS, CMP, LIPID, URIC #### [facility] [address] [address] [address] Sarmad Patino Bilirubin [Mass/Vol] 0.4 mg/dL Normal 0.2-1.0 [facility] Comment on above: Performed By: #### D DAVIDOSN, MG, PHOS, CMP, LIPID, URIC #### [facility] [address] [address] [address] Sarmad Patino Calcium [Mass/Vol] 9.3 mg/dL Normal 8.5-10.1 [facility] Comment on above: Performed By: #### D DAVIDSON, MG, PHOS, CMP, LIPID, URIC #### [facility] [address] [address] [address] Sarmad Patino Chloride [Moles/Vol] 106 mmol/L Normal 98-107 [facility] Comment on above: Performed By: #### D DAVIDSON, MG, PHOS, CMP, LIPID, URIC #### [facility] [address] [place] [address] Dr. Sarmad Patino CO2 [Moles/Vol] 25.5 mmol/L Normal 21.0-32.0 [facility] Comment on above: Performed By: #### D DAVIDSON, MG, PHOS, CMP, LIPID, URIC #### [facility] [address] [place] [address] Dr. Sarmad Patino Creatinine [Mass/Vol] 0.85 mg/dL Normal 0.55-1.02 [facility] Comment on above: Performed By: #### D DAVIDSON, MG, PHOS, CMP, LIPID, URIC #### [facility] [address] [place] [address] Dr. Sarmad Patino EGFR-AF EQUATORIAL GUINEAN >60 Normal >=60 The [facility] Comment on above: Performed By: #### D DAVIDSON, MG, PHOS, CMP, LIPID, URIC #### [facility] [address] [place] [address] Dr. Sarmad Patino EGFR-NON AF EQUATORIAL GUINEAN >60 Normal >=60 [facility] Comment on above: Performed By: #### D DAVIDSON, MG, PHOS, CMP, LIPID, URIC #### [facility] [address] [address] [address] Sarmad Patino Globulin (S) [Mass/Vol] 3.8 g/dL Normal [facility] Comment on above: Performed By: #### D DAVIDSON, MG, PHOS, CMP, LIPID, URIC #### [facility] [address] [address] [address] Sarmad Patino Glucose [Mass/Vol] 100 mg/dL Normal 74-106 [facility] Comment on above: Performed By: #### D DAVIDSON, MG, PHOS, CMP, LIPID, URIC #### [facility] [address] [place] [address] Dr. Sarmad Patino Potassium [Moles/Vol] 3.9 mmol/L Normal 3.5-5.1 [facility] Comment on above: Performed By: #### D DAVIDSON, MG, PHOS, CMP, LIPID, URIC #### [facility] [address] [place] [address] Dr. Sarmad Patino Protein [Mass/Vol] 7.2 g/dL Normal 6.4-8.2 [facility] Comment on above: Performed By: #### D DAVIDSON, MG, PHOS, CMP, LIPID, URIC #### [facility] [address] [place] [address] Dr. Sarmad Patino Sodium [Moles/Vol] 141 mmol/L Normal 136-145 [facility] Comment on above: Performed By: #### D DAVIDSON, MG, PHOS, CMP, LIPID, URIC #### [facility] [address] [place] [address] Dr. Sarmad Patino Urea nitrogen [Mass/Vol] 16.0 mg/dL Normal 7.0-18.0 [facility] Comment on above: Performed By: #### D DAVIDSON, MG, PHOS, CMP, LIPID, URIC #### [facility] [address] [place] [address] Dr. Sarmad Patino Urea nitrogen/Creatinine [Mass ratio] 18.8 mg/mg Normal [facility] Comment on above: Performed By: #### D DAVIDSON, MG, PHOS, CMP, LIPID, URIC #### [facility] [address] [address] [address] Sarmad Patino URIC ACID SERUMon 09-10-2021 Urate [Mass/Vol] 4.8 mg/dL Normal 2.6-6.0 [facility] Comment on above: Performed By: #### D DAVIDSON, MG, PHOS, CMP, LIPID, URIC #### [facility] [id number] Sarmad Patino Urinalysis - AUTOMATEDon Appearance (U) cloudy [place] Other Bilirubin Ql (U) Negative [place] Other Color (U) pale yellow [place] Other Glucose Ql (U) Negative [place] Other Hemoglobin Ql (U) moderate [employer] Other Ketones Ql (U) Negative [place] Other Leukocyte esterase Test strip Ql (U) moderate [facility] Other Nitrite Ql (U) Negative [place] Other pH (U) 7.0 [pH] [facility] Other Protein Ql (U) Negative [place] Other Specific gravity (U) [Rel density] 1.010 [facility] Other Urobilinogen (U) [Mass/Vol] 0.2 mg/dL [facility] Other Urinalysis - AUTOMATED [facility] Other Urine Cultureon 08-14-2021 Urine Culture 100,000 [facility] Other Urine Culture <16 Susceptible [place] Other Urine Culture >16 Resistant [facility] Other Urine Culture <4 Susceptible [place] Other Urine Culture <2 Susceptible [place] Other Urine Culture <1 Susceptible [place] Other Urine Culture <0.5 Susceptible [place] Other Urine Culture <32 Susceptible [place] Other Urine Culture <2/38 Susceptible [place] Other Bacteria identified Cx Nom (U) Reason for Exam Dysuria Urine ORGANISM: Klebsiella pneumoniae (O:KLEPNE) Warren Count 100,000 Aerobic SHYLA Charge (NUC86) ---- [...] RESISTANT TO ALL B-LACTAM DRUGS. PERFORMED BY: [address] [place] [id number] [address] [id number] PATHOLOGIST TICKET SPECULATOR LOVELY COLE M.D. Normal [facility] Comment on above: Performed By: #### C UU #### [facility] [address] *URINE CULTUREon 12-31-2017 Bacteria identified in Urine by Culture Clinical Report: (D) Specimen: URINE Collected: 12/31/2017 13:40 Status: Final Last Updated: 01/04/2018 12:38 ISO (Final) Diphtheroids >100,000 Cfu/Ml 2 Morphologies ISO (Final) Aerococcus urinae 50,000 - 100,000 Cfu/mL Result changed by RFISCHB on 01/04/2018 12:38. The previous result was: ISO (Prelim) Normal The [facility] Comment on above: Performed By: #### 4 1000, 32020, 95140, 70612, 64677, 06768 ####[facility] CBC W/DIFFon 12-25-2017 ABS BASOPHILS 0.0 10*3/uL Normal 0.0-0.2 The [facility] Comment on above: Performed By: #### 5 0103 ####[facility] ABS IMM GRANS 0.0 10*3/uL Normal 0.0-0.2 The [facility] Comment on above: Performed By: #### 5 0103 ####[facility] ABS NEUTROPHILS 5.0 10*3/uL Normal 1.6-7.6 The [facility] Comment on above: Performed By: #### 5 0103 ####[facility] Basophils Auto #/vol (Bld) 0.1 % Normal 0.0-1.0 The [facility] Comment on above: Performed By: #### 5 0103 ####[facility]3000 [facility].[address] Eosinophils Auto #/vol (Bld) 0.1 10*3/uL Normal 0.0-0.5 The [facility] Comment on above: Performed By: #### 3 ####[facility]3000 [facility].[address] Eosinophils/100 WBC Auto (Bld) 1.6 % Normal 0.0-6.0 The [facility] Comment on above: Performed By: #### 3 ####[facility] Erythrocyte distribution width Auto Ratio (RBC) 14.6 % Normal 11.5-15.0 The [facility] Comment on above: Performed By: #### 102 ####[facility]3000 [facility].[address] Hematocrit Auto Volume Fraction (Bld) 44.9 % Normal 36.0-45.0 The [facility] Comment on above: Performed By: #### 102 ####[facility]3000 [facility].[address] Hemoglobin mass conc (Bld) 14.9 g/dL Normal 12.0-15.0 The [facility] Comment on above: Performed By: #### 3 ####[facility]3000 [facility].[address] IMMATURE GRANS 0.4 % Normal 0.0-1.0 The [facility] Comment on above: Performed By: #### 3 ####[facility] Lymphocytes Auto #/vol (Bld) 1.0 10*3/uL Low 1.2-4.0 The [facility] Comment on above: Performed By: #### 5 3 ####[facility]3000 [facility].[address] Lymphocytes/100 WBC Auto (Bld) 14.9 % Low 20.0-45.0 The [facility] Comment on above: Performed By: #### 3 ####[facility]3000 [facility].[address] MCH Auto Entitic mass (RBC) 28.8 pg Normal 27.0-33.0 The [facility] Comment on above: Performed By: #### 3 ####[facility] MCHC Auto mass conc (RBC) 33.2 g/dL Normal 32.0-35.0 The [facility] Comment on above: Performed By: #### 102 ####[facility] MCV Auto Entitic volume (RBC) 86.7 fL Normal 82.0-98.0 The [facility] Comment on above: Performed By: #### 102 ####[facility] Monocytes Auto #/vol (Bld) 0.7 10*3/uL Normal 0.1-1.0 The [facility] Comment on above: Performed By: #### 3 ####[facility] MONOS 10.6 % Normal 5.0-12.0 The [facility] Comment on above: Performed By: #### 102 ####[facility] Neutrophils/100 WBC Auto (Bld) 72.4 % High 40.0-72.0 The [facility] Comment on above: Performed By: #### 102 ####[facility]3000 [facility].[address] Nucleated RBC/100 WBC Ratio (Bld) 0 % Normal 0-0 The [facility] Comment on above: Performed By: #### 5 0103 ####[facility] [place] [address], [facility] PLAT CNT 203 10*3/uL Normal 150-400 The [facility] Comment on above: Performed By: #### 5 010 ####[facility]3000 [facility] [place] [address], [facility] RBC Auto #/vol (Bld) 5.18 10*6/uL High 3.80-5.00 Th e [facility] Comment on above: Performed By: #### 5 0103 ####[facility]3000 [facility].[address] WBC Auto #/vol (Bld) 6.90 10*3/uL Normal 4.00-10.60 Th e [facility] Comment on above: Performed By: #### 5 0103 ####[facility]3000 [facility].[address] COMP METABOLIC PANELon 12-25 Albumin mass conc 4.3 g/dL Normal 3.5-5.7 The [facility] Comment on above: Performed By: #### 4 1000, 96415, 88148, 55276, 49603, 21995 ####[facility]3000 [facility] [place] [address], [facility] ALKALINE PHOSPH 118 IU/L High 34-104 The [facility] Comment on above: Performed By: #### 4 1000, 22998, 13285, 01695, 54204, 86427 ####[facility]3000 [facility] [place] [address], [facility] ALT enzyme act/vol 11 U/L Normal 7-52 The [facility] Comment on above: Performed By: #### 4 1000, 20709, 94603, 76331, 79321, 24972 ####[facility] [place] [address], [facility] AST enzyme act/vol 17 U/L Normal 13-39 The [facility] Comment on above: Performed By: #### 4 1000, 31283, 17948, 61991, 68603, 40331 ####[facility] [place] [address], [facility] Bilirubin mass conc 0.4 mg/dL Normal 0.3-1.0 The [facility] Comment on above: Performed By: #### 4 1000, 12332, 46422, 90575, 33067, 79759 ####[facility] [place] [address], [facility] Calcium mass conc 9.8 mg/dL Normal 8.6-10.3 The [facility] Comment on above: Performed By: #### 4 1000, 50318, 43079, 31093, 80205, 73940 ####[facility] [place] [address], [facility] Chloride molar conc 104 mmol/L Normal 98-107 The [facility] Comment on above: Performed By: #### 4 1000, 89559, 39408, 69060, 58849, 84610 ####[facility] [place] [address], [place] CO2 molar conc 27 mmol/L Normal 21-31 The [facility] Comment on above: Performed By: #### 4 1000, 12281, 50743, 45757, 68034, 42782 ####[facility] [place] [address], [place] Creatinine mass conc 0.76 mg/dL Normal 0.60-1.20 The [facility] Comment on above: Performed By: #### 4 1000, 06898, 91348, 68806, 24352, 09073 ####[facility] [place] [address], [place] GFR/1.73 sq M predicted among blacks MDRD vol rate/area (S/P/Bld) mL/min/{1.73_m2} Normal >60 The [facility] Comment on above: Performed By: #### 4 1000, 10713, 25754, 05177, 88173, 93516 ####[facility] [place] [address], [place] GFR/1.73 sq M predicted among non-blacks MDRD vol rate/area (S/P/Bld) mL/min/{1.73_m2} Normal >60 The [facility] Comment on above: Performed By: #### 4 1000, 81351, 72443, 00420, 60972, 22281 ####[facility] [place] [address], [place] Glucose mass conc 94 mg/dL Normal 70-100 The [facility] Comment on above: Performed By: #### 4 1000, 10653, 39357, 54639, 39146, 22825 ####[facility] [place] [address], [place] Potassium molar conc 3.9 mmol/L Normal 3.5-5.1 The [facility] Comment on above: Performed By: #### 4 1000, 51975, 14008, 12940, 43133, 95550 ####[facility] [place] [address], [place] Protein mass conc 7.2 g/dL Normal 6.0-8.3 The [facility] Comment on above: Performed By: #### 4 1000, 30617, 83964, 41200, 62745, 57181 ####[facility] Sodium molar conc 140 mmol/L Normal 136-145 The [facility] Comment on above: Performed By: #### 4 1000, 44265, 17991, 42325, 88924, 62944 ####[facility] Urea nitrogen mass conc 15 mg/dL Normal 7-25 The [facility] Comment on above: Performed By: #### 4 1000, 69123, 22290, 58989, 96062, 90168 ####[facility]3000 [facility].[address] DIRECT BILIon 12-25-2017 Bilirubin.direct mass conc 0.1 mg/dL Normal 0.0-0.2 [facility] Comment on above: Performed By: #### 4 1000, 49433, 63718, 21274, 06809, 12635 ####[facility]3000 [facility].[address] EVEROLIMUS [id number] 8 EVEROLIMUS 4.7 ng/mL Normal The [facility] Comment on above: Result Comment: [...] the transplantcenter.Test developed and characteristics determined by [employer]. See Compliance Statement B: [employer]/CSPerformed by [employer],[address] [place] [address] nex.[employer], Leonid Antonio MD - Lab. Director LIPID PROFILEon 12-25-2017 Cholesterol in HDL mass conc 51 mg/dL Normal 23-92 The [facility] Comment on above: Result Comment: Slig ht variation in normal range could be due to gender and/or age.HDL CHOLESTEROL REFERENCE RANGE:20 years and older Cardiovascular Risk> or =60 mg/dL [id number] TO 59 mg/dL Low Risk<40 mg/dL High Risk Performed By: #### 4 5506, 24333, 10601, 64967, 94302, 52097 ####[facility]3000 [facility] [place] [address], [facility] Cholesterol in LDL mass conc 58 mg/dL Normal 0-130 The [facility] Comment on above: Result Comment: LDL IS A CALCULATIONLDL IS ONLY VALID IF THE TRIG IS LESS THAN 400. Performed By: #### 4 5506, 23566, 31886, 87694, 37620, 70847 ####[facility] [place] [address], [facility] Cholesterol mass conc 122 mg/dL Normal 120-200 The [facility] Comment on above: Result Comment: CHOL ESTEROL REFERENCE RANGE:20 YEARS AND OLDER CARDIOVASCULAR RISKLess than 200 mg/dl Low Oxdo607 to 239 mg/dl Borderline Axoc682 mg/dl and greater High Risk Performed By: #### 4 5506, 21978, 67698, 65029, 27230, 46606 ####[facility] [place] [address], [facility] Cholesterol.total/Cho lesterol in HDL mass ratio 2.4 {ratio} Normal .0-4.5 The [facility] Comment on above: Performed By: #### 4 5506, 08613, 07689, 59740, 99470, 80700 ####[facility] NON-HDL CHOLESTEROL 71 mg/dL Normal The [facility] Comment on above: Performed By: #### 4 5506, 71597, 23117, 31793, 57272, 08246 ####[facility] Triglyceride mass conc 65 mg/dL Normal 40-149 The [facility] Comment on above: Result Comment: TRIG LYCERIDE REFERENCE RANGE:20 YEARS AND OLDER CARDIOVASCULAR RISKLESS THAN 150 mg/dl LOW [id number] TO 199 mg/dl BORDERLINE [id number] mg/dl AND GREATER HIGH RISK Performed By: #### 4 5506, 26065, 53750, 56712, 06448, 84014 ####[facility] VLDL CHOL 13 mg/dL Normal 0-40 The [facility] Comment on above: Performed By: #### 4 5506, 64916, 19335, 88916, 61715, 17641 ####[facility] MAGNESIUM BLOODon 12-25-2017 Magnesium mass conc 1.8 mg/dL Low 1.9-2.7 The [facility] Comment on above: Performed By: #### 4 1000, 05382, 07312, 90789, 73199, 20911 ####[facility] [place] [address], [facility] PHOSPHORUS BLOODon 8 Phosphate mass conc 3.4 mg/dL Normal 2.5-5.0 The [facility] Comment on above: Performed By: #### 4 5506, 53987, 84710, 67761, 07969, 97335 ####[facility] [place] [address], [facility] TACROLIMUSon 12-25-2017 Tacrolimus mass conc (Bld) 6.4 ng/mL Normal 5.0-20.0 The [facility] Comment on above: Result Comment: The [employer] Tacrolimus assay is a delayed one-step immunoassayfor the quantitative determination of tacrolimus in human whole bloodusing the chemiluminescent microparticle immunoassay (CMIA) technologywith flexible assay protocols, referred to as Chemiflex. Performed By: #### 4 1000, 89523, 38495, 94227, 41525, 23065 ####[facility] URIC ACID BLOODon 12-25-2017 Urate mass conc 4.7 mg/dL Normal 2.3-6.6 The [facility] Comment on above: Performed By: #### 4 5506, 32284, 47099, 33106, 79279, 48746 ####[place] [id number] [address] CBC W/DIFFon 10-30-2017 ABS BASOPHILS 0.0 10*3/uL Normal 0.0-0.2 The [facility] Comment on above: Performed By: #### 4 5647, 85721 ####[place] [address] [address] ABS IMM GRANS 0.0 10*3/uL Normal 0.0-0.2 The [facility] Comment on above: Performed By: #### 4 5719, 61849 ####[place] [address] [address] ABS NEUTROPHILS 4.9 10*3/uL Normal 1.6-7.6 The [facility] Comment on above: Performed By: #### 4 2720, 25280 ####[place] [address] [address] Basophils Auto #/vol (Bld) 0.1 % Normal 0.0-1.0 The [facility] Comment on above: Performed By: #### 4 1653, 65271 ####[facility] Eosinophils Auto #/vol (Bld) 0.1 10*3/uL Normal 0.0-0.5 The [facility] Comment on above: Performed By: #### 7 5098, 86455 ####[facility]3000 [facility].[address] Eosinophils/100 WBC Auto (Bld) 1.4 % Normal 0.0-6.0 The [facility] Comment on above: Performed By: #### 4 5113, 95807 ####[place] [address] [address] Erythrocyte distribution width Auto Ratio (RBC) 14.6 % Normal 11.5-15.0 The [facility] Comment on above: Performed By: #### 9 5256, 32572 ####[address] Hematocrit Auto Volume Fraction (Bld) 46.8 % High 36.0-45.0 The [facility] Comment on above: Performed By: #### 9 2070, 17297 ####[place] [address] [address] Hemoglobin mass conc (Bld) 15.1 g/dL High 12.0-15.0 The [facility] Comment on above: Performed By: #### 4 6282, 55280 ####[facility] IMMATURE GRANS 0.4 % Normal 0.0-1.0 The [facility] Comment on above: Performed By: #### 8 4620, 23927 ####[facility] Lymphocytes Auto #/vol (Bld) 1.2 10*3/uL Normal 1.2-4.0 The [facility] Comment on above: Performed By: #### 4 1742, 71153 ####[facility] Lymphocytes/100 WBC Auto (Bld) 16.6 % Low 20.0-45.0 The [facility] Comment on above: Performed By: #### 4 3870, 01169 ####[facility] MCH Auto Entitic mass (RBC) 29.0 pg Normal 27.0-33.0 The [facility] Comment on above: Performed By: #### 4 7797, 58684 ####[facility]3000 [facility].[address] MCHC Auto mass conc (RBC) 32.3 g/dL Normal 32.0-35.0 The [facility] Comment on above: Performed By: #### 4 6540, 94623 ####[facility]3000 [facility].[address] MCV Auto Entitic volume (RBC) 89.8 fL Normal 82.0-98.0 The [facility] Comment on above: Performed By: #### 4 3644, 05028 ####[facility]3000 [facility].[address] Monocytes Auto #/vol (Bld) 0.8 10*3/uL Normal 0.1-1.0 The [facility] Comment on above: Performed By: #### 4 3702, 05320 ####[facility]3000 [facility].[address] MONOS 11.9 % Normal 5.0-12.0 The [facility] Comment on above: Performed By: #### 2 4529, 76446 ####[facility] Neutrophils/100 WBC Auto (Bld) 69.6 % Normal 40.0-72.0 [facility] Comment on above: Performed By: #### 4 6447, 88402 ####[place] [address] [facility].[address] Nucleated RBC/100 WBC Ratio (Bld) 0 % Normal 0-0 The [facility] Comment on above: Performed By: #### 4 6447, 51156 ####[facility]3000 [facility].[address] PLAT CNT 200 10*3/uL Normal 150-400 The [facility] Comment on above: Performed By: #### 4 6447, 77613 ####[address] RBC Auto #/vol (Bld) 5.21 10*6/uL High 3.80-5.00 Th [facility] Comment on above: Performed By: #### 4 3947, 42508 ####[place] [address] [facility].[address] WBC Auto #/vol (Bld) 7.04 10*3/uL Normal 4.00-10.60 Th [facility] Comment on above: Performed By: #### 4 6447, 89642 ####[address] COMP METABOLIC PANELon 10-30 Albumin mass conc 4.1 g/dL Normal 3.5-5.7 [facility] Comment on above: Performed By: #### 4 6447, 75244 ####[address] ALKALINE PHOSPH 114 IU/L High 34-104 The [facility] Comment on above: Performed By: #### 4 6447, 14355 ####[address] [place] [address], [facility] ALT enzyme act/vol 16 U/L Normal 7-52 The [facility] Comment on above: Performed By: #### 4 7938, 73786 ####[facility] [place] [address], [place] AST enzyme act/vol 18 U/L Normal 13-39 The [facility] Comment on above: Performed By: #### 4 5205, 13026 ####[facility] [place] [address], [place] Bilirubin mass conc 0.4 mg/dL Normal 0.3-1.0 The [facility] Comment on above: Performed By: #### 2 5225, 02860 ####[facility] [place] [address], [place] Calcium mass conc 9.7 mg/dL Normal 8.6-10.3 [facility] Comment on above: Performed By: #### 4 5313, 92142 ####[facility] [place] [address], [place] Chloride molar conc 105 mmol/L Normal 98-107 The [facility] Comment on above: Performed By: #### 8 9987, 76061 ####[facility] [place] [address], [place] CO2 molar conc 28 mmol/L Normal 21-31 The [facility] Comment on above: Performed By: #### 2 5555, 34936 ####[facility] [place] [address], [place] Creatinine mass conc 0.82 mg/dL Normal 0.60-1.20 The [facility] Comment on above: Performed By: #### 6 5329, 36949 ####[facility] [place] [address], [place] GFR/1.73 sq M predicted among blacks MDRD vol rate/area (S/P/Bld) mL/min/{1.73_m2} Normal >60 The [facility] Comment on above: Performed By: #### 4 9331, 99474 ####[facility]3000 [facility] [place] [address], [facility] GFR/1.73 sq M predicted among non-blacks MDRD vol rate/area (S/P/Bld) mL/min/{1.73_m2} Normal >60 The [facility] Comment on above: Performed By: #### 4 9808, 05282 ####[facility]3000 [facility] [place] [address], [facility] Glucose mass conc 90 mg/dL Normal 70-100 The [facility] Comment on above: Performed By: #### 4 7064, 71114 ####[facility]3000 [facility] [place] [address], [facility] Potassium molar conc 4.1 mmol/L Normal 3.5-5.1 The [facility] Comment on above: Performed By: #### 8 7583, 90279 ####[facility]3000 [facility] [place] [address], [facility] Protein mass conc 6.9 g/dL Normal 6.0-8.3 The [facility] Comment on above: Performed By: #### 9 6087, 53751 ####[facility]3000 [facility] [place] [address], [facility] Sodium molar conc 138 mmol/L Normal 136-145 The [facility] Comment on above: Performed By: #### 9 6976, 59984 ####[facility]3000 [facility].[place] [id number], [place] Urea nitrogen mass conc 16 mg/dL Normal 7-25 The [facility] Comment on above: Performed By: #### 4 4713, 35337 ####[facility] [place] [address], [facility] DIRECT BILIon 10-30-2017 Bilirubin.direct mass conc 0.0 mg/dL Normal 0.0-0.2 [facility] Comment on above: Performed By: #### 4 5506, 80133, 85963, 85238, 42888, 86354 ####[facility] [place] [address], [facility] EVEROLIMUS [id number] 8 EVEROLIMUS 6.0 ng/mL Normal The [facility] Comment on above: Result Comment: [...] the transplantcenter.Test developed and characteristics determined by [employer]. See Compliance Statement B: [employer]/CSPerformed by [facility],[address] [place] [address] rbi.[employer], Leonid Antonio MD - Lab. Director LIPID PROFILEon 10-30-2017 Cholesterol in HDL mass conc 50 mg/dL Normal 23-92 The [facility] Comment on above: Result Comment: Slig ht variation in normal range could be due to gender and/or age.HDL CHOLESTEROL REFERENCE RANGE:20 years and older Cardiovascular Risk> or =60 mg/dL Lpsjfirjz16 TO 59 mg/dL Low Risk<40 mg/dL High Risk Performed By: #### 4 5506, 73011, 42620, 89060, 39563, 02921 ####[facility] [place] [address], [place] Cholesterol in LDL mass conc 85 mg/dL Normal 0-130 The [facility] Comment on above: Result Comment: LDL IS A CALCULATIONLDL IS ONLY VALID IF THE TRIG IS LESS THAN 400. Performed By: #### 4 5506, 57031, 64737, 15672, 95650, 08958 ####[facility] [place] [address], [facility] Cholesterol mass conc 152 mg/dL Normal 120-200 The [facility] Comment on above: Result Comment: CHOL ESTEROL REFERENCE RANGE:20 YEARS AND OLDER CARDIOVASCULAR RISKLess than 200 mg/dl Low Ikba106 to 239 mg/dl Borderline Oqaa854 mg/dl and greater High Risk Performed By: #### 4 5506, 55793, 51767, 42359, 92973, 39686 ####[facility] [place] [address], [facility] Cholesterol.total/Cho lesterol in HDL mass ratio 3.0 {ratio} Normal .0-4.5 [facility] Comment on above: Performed By: #### 4 5506, 51887, 43960, 94497, 52112, 47944 ####[facility] [place] [address], [place] NON-HDL CHOLESTEROL 102 mg/dL Normal The [facility] Comment on above: Performed By: #### 4 5506, 31559, 31059, 56210, 56303, 09488 ####[facility] [place] [address], [place] Triglyceride mass conc 87 mg/dL Normal 40-149 The [facility] Comment on above: Result Comment: TRIG LYCERIDE REFERENCE RANGE:20 YEARS AND OLDER CARDIOVASCULAR RISKLESS THAN 150 mg/dl LOW [id number] TO 199 mg/dl BORDERLINE LAZB299 mg/dl AND GREATER HIGH RISK Performed By: #### 4 5506, 72260, 62065, 89250, 33600, 97764 ####[facility]3000 [facility].[address] VLDL CHOL 17 mg/dL Normal 0-40 The [facility] Comment on above: Performed By: #### 4 5506, 52160, 16721, 27927, 92193, 92148 ####[facility]3000 [facility].[address] MAGNESIUM BLOODon 10-30-2017 Magnesium mass conc 1.9 mg/dL Normal 1.9-2.7 The [facility] Comment on above: Performed By: #### 4 5506, 66936, 56355, 60169, 85137, 80920 ####[facility]3000 [facility].[address] PHOSPHORUS BLOODon 8 Phosphate mass conc 3.7 mg/dL Normal 2.5-5.0 The [facility] Comment on above: Performed By: #### 4 5506, 14773, 01740, 22181, 23880, 36557 ####[facility]3000 [facility].[address] TACROLIMUSon 10-30-2017 Tacrolimus mass conc (Bld) 7.1 ng/mL Normal 5.0-20.0 The [facility] Comment on above: Result Comment: The [employer] Tacrolimus assay is a delayed one-step immunoassayfor the quantitative determination of tacrolimus in human whole bloodusing the chemiluminescent microparticle immunoassay (CMIA) technologywith flexible assay protocols, referred to as Chemiflex. Performed By: #### 9 9914 ####[facility]3000 [facility] [place] [address], [facility] URIC ACID BLOODon 10-30-2017 Urate mass conc 4.6 mg/dL Normal 2.3-6.6 The [facility] Comment on above: Performed By: #### 4 2147, 46132 ####[address] CBC W/DIFFon 10-23-2017 ABS BASOPHILS 0.0 10*3/uL Normal 0.0-0.2 The [facility] Comment on above: Performed By: #### 4 2947, 53080 ####[place] [address] [address] ABS IMM GRANS 0.1 10*3/uL Normal 0.0-0.2 The [facility] Comment on above: Performed By: #### 4 6147, 48301 ####[address] ABS NEUTROPHILS 5.8 10*3/uL Normal 1.6-7.6 The [facility] Comment on above: Performed By: #### 4 3147, 75658 ####[address] Basophils Auto #/vol (Bld) 0.2 % Normal 0.0-1.0 The [facility] Comment on above: Performed By: #### 4 3747, 23952 ####[address] Eosinophils Auto #/vol (Bld) 0.1 10*3/uL Normal 0.0-0.5 The [facility] Comment on above: Performed By: #### 4 4247, 67288 ####[address] Eosinophils/100 WBC Auto (Bld) 0.7 % Normal 0.0-6.0 The [facility] Comment on above: Performed By: #### 8 7318, 97536 ####[address] [place] [address], [place] Erythrocyte distribution width Auto Ratio (RBC) 14.6 % Normal 11.5-15.0 The [facility] Comment on above: Performed By: #### 4 8317, 07558 ####[address] Hematocrit Auto Volume Fraction (Bld) 44.2 % Normal 36.0-45.0 The [facility] Comment on above: Performed By: #### 4 3269, 78695 ####[address] Hemoglobin mass conc (Bld) 14.2 g/dL Normal 12.0-15.0 The [facility] Comment on above: Performed By: #### 5 6853, 70311 ####[address] IMMATURE GRANS 1.4 % High 0.0-1.0 The [facility] Comment on above: Performed By: #### 6 1706, 27732 ####[address] Lymphocytes Auto #/vol (Bld) 2.1 10*3/uL Normal 1.2-4.0 The [facility] Comment on above: Performed By: #### 4 6245, 92919 ####[address] Lymphocytes/100 WBC Auto (Bld) 22.5 % Normal 20.0-45.0 The [facility] Comment on above: Performed By: #### 4 7249, 91920 ####[place] [address] [address] MCH Auto Entitic mass (RBC) 28.5 pg Normal 27.0-33.0 The [facility] Comment on above: Performed By: #### 8 7783, 52374 ####[facility]3000 [facility].[address] MCHC Auto mass conc (RBC) 32.1 g/dL Normal 32.0-35.0 The [facility] Comment on above: Performed By: #### 4 6047, 11619 ####[facility]3000 [facility].[address] MCV Auto Entitic volume (RBC) 88.8 fL Normal 82.0-98.0 The [facility] Comment on above: Performed By: #### 4 6447, 36175 ####[facility]3000 [facility].[address] Monocytes Auto #/vol (Bld) 1.1 10*3/uL High 0.1-1.0 The [facility] Comment on above: Performed By: #### 4 5947, 29540 ####[facility]3000 [facility].[address] MONOS 12.0 % Normal 5.0-12.0 The [facility] Comment on above: Performed By: #### 4 1947, 37598 ####[facility]3000 [facility].[address] Neutrophils/100 WBC Auto (Bld) 63.2 % Normal 40.0-72.0 The [facility] Comment on above: Performed By: #### 4 0647, 77842 ####[facility]3000 [facility].[address] Nucleated RBC/100 WBC Ratio (Bld) 0 % Normal 0-0 The [facility] Comment on above: Performed By: #### 4 4947, 51389 ####[facility] [place] [address], [facility] PLAT CNT 241 10*3/uL Normal 150-400 The [facility] Comment on above: Performed By: #### 9 5122, 65775 ####[facility]3000 [facility] [place] [address], [facility] RBC Auto #/vol (Bld) 4.98 10*6/uL Normal 3.80-5.00 Th e [facility] Comment on above: Performed By: #### 4 6447, 05515 ####[facility]3000 [facility] [place] [address], [facility] WBC Auto #/vol (Bld) 9.14 10*3/uL Normal 4.00-10.60 Th e [facility] Comment on above: Performed By: #### 4 6447, 84154 ####[facility]3000 [facility].[address] COMP METABOLIC PANELon 10-23 Albumin mass conc 3.8 g/dL Normal 3.5-5.7 The [facility] Comment on above: Performed By: #### 4 6447, 05483 ####[facility]3000 [facility].[address] ALKALINE PHOSPH 96 IU/L Normal 34-104 [facility] Comment on above: Performed By: #### 4 6447, 94584 ####[facility]3000 [facility] [place] [place] [address], [facility] ALT enzyme act/vol 15 U/L Normal 7-52 [facility] Comment on above: Performed By: #### 4 6447, 76659 ####[facility]3000 [facility] [place] [address], [facility] AST enzyme act/vol 13 U/L Normal 13-39 [facility] Comment on above: Performed By: #### 4 6447, 96732 ####[facility] [place] [address], [facility] Bilirubin mass conc 0.4 mg/dL Normal 0.3-1.0 The [facility] Comment on above: Performed By: #### 4 3347, 43221 ####[facility] [id number], [facility] Calcium mass conc 9.2 mg/dL Normal 8.6-10.3 The [facility] Comment on above: Performed By: #### 4 1429, 77026 ####[facility] [place] [address], [place] Chloride molar conc 102 mmol/L Normal 98-107 The [facility] Comment on above: Performed By: #### 4 9070, 65891 ####[facility] [id number], [place] CO2 molar conc 29 mmol/L Normal 21-31 The [facility] Comment on above: Performed By: #### 6 8641, 43923 ####[facility] [id number], [place] Creatinine mass conc 0.80 mg/dL Normal 0.60-1.20 The [facility] Comment on above: Performed By: #### 0 8753, 91328 ####[facility] [id number], [place] GFR/1.73 sq M predicted among blacks MDRD vol rate/area (S/P/Bld) mL/min/{1.73_m2} Normal >60 The [facility] Comment on above: Performed By: #### 8 1155, 60846 ####[facility] [place] [address], [place] GFR/1.73 sq M predicted among non-blacks MDRD vol rate/area (S/P/Bld) mL/min/{1.73_m2} Normal >60 The [facility] Comment on above: Performed By: #### 4 8617, 14902 ####[facility]3000 [facility].[address] Glucose mass conc 85 mg/dL Normal 70-100 The [facility] Comment on above: Performed By: #### 4 6447, 92813 ####[facility] [place], [place] [address]E.[address] Potassium molar conc 3.3 mmol/L Low 3.5-5.1 The [facility] Comment on above: Performed By: #### 4 6447, 34354 ####[facility]3000 [facility].[address] Protein mass conc 6.5 g/dL Normal 6.0-8.3 The [facility] Comment on above: Performed By: #### 4 6447, 16881 ####[address] Sodium molar conc 139 mmol/L Normal 136-145 The [facility] Comment on above: Performed By: #### 4 6447, 69709 ####[place] [id number] [facility].[address] Urea nitrogen mass conc 18 mg/dL Normal 7-25 The [facility] Comment on above: Performed By: #### 4 6447, 12781 ####[place] [id number] [facility].[address] DIRECT BILIon 10-23-2017 Bilirubin.direct mass conc 0.1 mg/dL Normal 0.0-0.2 The [facility] Comment on above: Performed By: #### 4 6447, 59832 ####[address] EVEROLIMUS 49045zq 8 EVEROLIMUS 4.0 ng/mL Normal The [facility] Comment on above: Result Comment: [...] the transplantcenter.Test developed and characteristics determined by [employer]. See Compliance Statement B: Really Simple/CSPerformed by EX[employer],[address] [place] [id number] ynd.[employer], Leonid Antonio MD - Lab. Director LIPID PROFILEon 10-23-2017 Cholesterol in HDL mass conc 53 mg/dL Normal 23-92 The [facility] Comment on above: Result Comment: Slig ht variation in normal range could be due to gender and/or age.HDL CHOLESTEROL REFERENCE RANGE:20 years and older Cardiovascular Risk> or =60 mg/dL Znxyiqaqz77 TO 59 mg/dL Low Risk<40 mg/dL High Risk Performed By: #### 4 7316, 71899 ####[facility] [place] [address], [facility] Cholesterol in LDL mass conc 68 mg/dL Normal 0-130 The [facility] Comment on above: Result Comment: LDL IS A CALCULATIONLDL IS ONLY VALID IF THE TRIG IS LESS THAN 400. Performed By: #### 3 0485, 61488 ####[facility] [facility] [place] [address], [facility] Cholesterol mass conc 135 mg/dL Normal 120-200 The [facility] Comment on above: Result Comment: CHOL ESTEROL REFERENCE RANGE:20 YEARS AND OLDER CARDIOVASCULAR RISKLess than 200 mg/dl Low Fqxm576 to 239 mg/dl Borderline Fdlj009 mg/dl and greater High Risk Performed By: #### 4 1985, 94047 ####[facility] [facility].[address] Cholesterol.total/Cho lesterol in HDL mass ratio 2.5 {ratio} Normal .0-4.5 The [facility] Comment on above: Performed By: #### 4 7222, 32812 ####[facility] [facility].[address] NON-HDL CHOLESTEROL 82 mg/dL Normal The [facility] Comment on above: Performed By: #### 4 8518, 11890 ####[facility] [facility].[address] Triglyceride mass conc 72 mg/dL Normal 40-149 The [facility] Comment on above: Result Comment: TRIG LYCERIDE REFERENCE RANGE:20 YEARS AND OLDER CARDIOVASCULAR RISKLESS THAN 150 mg/dl LOW [id number] TO 199 mg/dl BORDERLINE POPC018 mg/dl AND GREATER HIGH RISK Performed By: #### 4 7485, 24681 ####[facility] [facility].[address] VLDL CHOL 14 mg/dL Normal 0-40 The [facility] Comment on above: Performed By: #### 4 1573, 18827 ####[facility] [facility] [place] [address], [facility] MAGNESIUM BLOODon 10-23-2017 Magnesium mass conc 1.8 mg/dL Low 1.9-2.7 The [facility] Comment on above: Performed By: #### 4 3232, 53831 ####[facility] [facility] [place] [address], [facility] PHOSPHORUS BLOODon 8 Phosphate mass conc 3.7 mg/dL Normal 2.5-5.0 The [facility] Comment on above: Performed By: #### 4 6447, 60740 ####[place] [address] [address] TACROLIMUSon 10-23-2017 Tacrolimus mass conc (Bld) 2.6 ng/mL Low 5.0-20.0 The [facility] Comment on above: Result Comment: The [employer] Tacrolimus assay is a delayed one-step immunoassayfor the quantitative determination of tacrolimus in human whole bloodusing the chemiluminescent microparticle immunoassay (CMIA) technologywith flexible assay protocols, referred to as Chemiflex. Performed By: #### 4 6447, 27481 ####[place] [address] URIC ACID BLOODon 10-23-2017 Urate mass conc 4.3 mg/dL Normal 2.3-6.6 The [facility] Comment on above: Performed By: #### 4 6447, 20801 ####[address] CBC W/DIFFon 09-25-2017 ABS BASOPHILS 0.0 10*3/uL Normal 0.0-0.2 The [facility] Comment on above: Performed By: #### 4 1000, 64180, 38054, 82858, 40445, 64796 ####[address] ABS IMM GRANS 0.0 10*3/uL Normal 0.0-0.2 The [facility] Comment on above: Performed By: #### 4 1000, 93160, 98082, 07999, 95760, 53768 ####[address] ABS NEUTROPHILS 4.4 10*3/uL Normal 1.6-7.6 The [facility] Comment on above: Performed By: #### 4 1000, 09948, 04446, 68878, 48005, 88334 ####[facility] Basophils Auto #/vol (Bld) 0.2 % Normal 0.0-1.0 The [facility] Comment on above: Performed By: #### 4 1000, 25429, 81567, 35629, 84330, 75392 ####[facility] Eosinophils Auto #/vol (Bld) 0.1 10*3/uL Normal 0.0-0.5 The [facility] Comment on above: Performed By: #### 4 1000, 40387, 34098, 99632, 92825, 96326 ####[facility] Eosinophils/100 WBC Auto (Bld) 2.2 % Normal 0.0-6.0 The [facility] Comment on above: Performed By: #### 4 1000, 36405, 16278, 45152, 85169, 21278 ####[facility]3000 [facility].[address] Erythrocyte distribution width Auto Ratio (RBC) 14.0 % Normal 11.5-15.0 The [facility] Comment on above: Performed By: #### 4 1000, 22628, 81372, 54941, 63688, 25900 ####[facility] [facility].[address] Hematocrit Auto Volume Fraction (Bld) 44.8 % Normal 36.0-45.0 The [facility] Comment on above: Performed By: #### 4 1000, 67123, 81012, 35048, 54061, 28510 ####[facility] Hemoglobin mass conc (Bld) 14.5 g/dL Normal 12.0-15.0 The [facility] Comment on above: Performed By: #### 4 1000, 96411, 85460, 77842, 45124, 18577 ####[facility] IMMATURE GRANS 0.3 % Normal 0.0-1.0 The [facility] Comment on above: Performed By: #### 4 1000, 79361, 87679, 71095, 97851, 49996 ####[facility] Lymphocytes Auto #/vol (Bld) 1.1 10*3/uL Low 1.2-4.0 The [facility] Comment on above: Performed By: #### 4 1000, 54380, 18563, 01923, 21516, 70738 ####[facility] Lymphocytes/100 WBC Auto (Bld) 17.0 % Low 20.0-45.0 The [facility] Comment on above: Performed By: #### 4 1000, 64417, 00371, 08754, 36484, 97555 ####[facility] MCH Auto Entitic mass (RBC) 28.6 pg Normal 27.0-33.0 The [facility] Comment on above: Performed By: #### 4 1000, 22570, 29082, 74456, 70650, 71688 ####[facility] MCHC Auto mass conc (RBC) 32.4 g/dL Normal 32.0-35.0 The [facility] Comment on above: Performed By: #### 4 1000, 85354, 13982, 33891, 52009, 95717 ####[facility]3000 [facility].[address] MCV Auto Entitic volume (RBC) 88.4 fL Normal 82.0-98.0 The [facility] Comment on above: Performed By: #### 4 1000, 48443, 50281, 59111, 38452, 37079 ####[facility] Monocytes Auto #/vol (Bld) 0.7 10*3/uL Normal 0.1-1.0 The [facility] Comment on above: Performed By: #### 4 1000, 35994, 15962, 97148, 98990, 90805 ####[facility] MONOS 11.5 % Normal 5.0-12.0 The [facility] Comment on above: Performed By: #### 4 1000, 20180, 84735, 48844, 24000, 88629 ####[facility] Neutrophils/100 WBC Auto (Bld) 68.8 % Normal 40.0-72.0 The [facility] Comment on above: Performed By: #### 4 1000, 21726, 48788, 40788, 70386, 16765 ####[facility]3000 [facility].[address] Nucleated RBC/100 WBC Ratio (Bld) 0 % Normal 0-0 The [facility] Comment on above: Performed By: #### 4 1000, 78573, 56364, 99431, 96579, 17014 ####[facility] PLAT CNT 212 10*3/uL Normal 150-400 The [facility] Comment on above: Performed By: #### 4 1000, 68296, 10965, 22610, 29494, 08040 ####[facility] RBC Auto #/vol (Bld) 5.07 10*6/uL High 3.80-5.00 Th e [facility] Comment on above: Performed By: #### 4 1000, 70350, 17459, 73230, 50034, 43895 ####[facility] WBC Auto #/vol (Bld) 6.34 10*3/uL Normal 4.00-10.60 Th e [facility] Comment on above: Performed By: #### 4 1000, 61740, 67834, 98603, 74334, 05072 ####[facility]3000 [facility].[address] COMP METABOLIC PANELon 09-25 Albumin mass conc 4.0 g/dL Normal 3.5-5.7 The [facility] Comment on above: Performed By: #### 4 6447, 79110 ####[facility] [facility].[address] ALKALINE PHOSPH 112 IU/L High 34-104 [facility] Comment on above: Performed By: #### 4 8847, 93448 ####[facility] [facility].[address] ALT enzyme act/vol 11 U/L Normal 7-52 [facility] Comment on above: Performed By: #### 4 6447, 76840 ####[facility] [facility].[address] AST enzyme act/vol 17 U/L Normal 13-39 [facility] Comment on above: Performed By: #### 4 2383, 22178 ####[facility] [facility].[address] Bilirubin mass conc 0.5 mg/dL Normal 0.3-1.0 [facility] Comment on above: Performed By: #### 4 9197, 41188 ####[facility] [place] [address], [place] Calcium mass conc 9.6 mg/dL Normal 8.6-10.3 The [facility] Comment on above: Performed By: #### 4 5910, 78129 ####[facility] [place] [address], [place] Chloride molar conc 104 mmol/L Normal 98-107 [facility] Comment on above: Performed By: #### 4 2826, 98598 ####[facility] [place] [address], [place] CO2 molar conc 28 mmol/L Normal 21-31 The [facility] Comment on above: Performed By: #### 1 1031, 88290 ####[facility] [place] [address], [place] Creatinine mass conc 0.83 mg/dL Normal 0.60-1.20 The [facility] Comment on above: Performed By: #### 5 5840, 99320 ####[facility] [place] [address], [place] GFR/1.73 sq M predicted among blacks MDRD vol rate/area (S/P/Bld) mL/min/{1.73_m2} Normal >60 The [facility] Comment on above: Performed By: #### 5 7602, 00825 ####[facility] [place] [address], [place] GFR/1.73 sq M predicted among non-blacks MDRD vol rate/area (S/P/Bld) mL/min/{1.73_m2} Normal >60 The [facility] Comment on above: Performed By: #### 3 3216, 44133 ####[facility] [place] [address], [place] Glucose mass conc 91 mg/dL Normal 70-100 The [facility] Comment on above: Performed By: #### 4 6447, 69906 ####[place] [address] [facility].[address] Potassium molar conc 3.9 mmol/L Normal 3.5-5.1 The [facility] Comment on above: Performed By: #### 4 6447, 03277 ####[address] Protein mass conc 7.0 g/dL Normal 6.0-8.3 The [facility] Comment on above: Performed By: #### 4 6447, 65851 ####[address] Sodium molar conc 140 mmol/L Normal 136-145 The [facility] Comment on above: Performed By: #### 4 6447, 68562 ####[address] Urea nitrogen mass conc 15 mg/dL Normal 7-25 The [facility] Comment on above: Performed By: #### 4 6447, 21344 ####[address] DIRECT BILIon 09-25-2017 Bilirubin.direct mass conc 0.1 mg/dL Normal 0.0-0.2 The [facility] Comment on above: Performed By: #### 4 6447, 21260 ####[address] EVEROLIMUS 37010oe 8 EVEROLIMUS 5.1 ng/mL Normal The [facility] Comment on above: Result Comment: [...] the transplantcenter.Test developed and characteristics determined by [employer]. See Compliance Statement B: Really Simple/CSPerformed by [employer],[address] [place] [id number] hfk.[employer], Leonid Antonio MD - Lab. Director LIPID PROFILEon 09-25-2017 Cholesterol in HDL mass conc 48 mg/dL Normal 23-92 The [facility] Comment on above: Result Comment: Slig ht variation in normal range could be due to gender and/or age.HDL CHOLESTEROL REFERENCE RANGE:20 years and older Cardiovascular Risk> or =60 mg/dL [id number] TO 59 mg/dL Low Risk<40 mg/dL High Risk Performed By: #### 9 0568, 18127 ####[facility] Cholesterol in LDL mass conc 69 mg/dL Normal 0-130 The [facility] Comment on above: Result Comment: LDL IS A CALCULATIONLDL IS ONLY VALID IF THE TRIG IS LESS THAN 400. Performed By: #### 4 0993, 94703 ####[facility] Cholesterol mass conc 138 mg/dL Normal 120-200 The [facility] Comment on above: Result Comment: CHOL ESTEROL REFERENCE RANGE:20 YEARS AND OLDER CARDIOVASCULAR RISKLess than 200 mg/dl Low Gpdb268 to 239 mg/dl Borderline Kjsh830 mg/dl and greater High Risk Performed By: #### 4 6085, 46305 ####[facility] Cholesterol.total/Cho lesterol in HDL mass ratio 2.9 {ratio} Normal .0-4.5 The [facility] Comment on above: Performed By: #### 4 5102, 87779 ####[facility]3000 [facility].[address] NON-HDL CHOLESTEROL 90 mg/dL Normal The [facility] Comment on above: Performed By: #### 4 2621, 36311 ####[facility] [facility].[address] Triglyceride mass conc 103 mg/dL Normal 40-149 The [facility] Comment on above: Result Comment: TRIG LYCERIDE REFERENCE RANGE:20 YEARS AND OLDER CARDIOVASCULAR RISKLESS THAN 150 mg/dl LOW [id number] TO 199 mg/dl BORDERLINE YAVI963 mg/dl AND GREATER HIGH RISK Performed By: #### 4 3982, 92308 ####[facility] VLDL CHOL 21 mg/dL Normal 0-40 The [facility] Comment on above: Performed By: #### 4 3947, 21371 ####[facility]3000 [facility].[address] MAGNESIUM BLOODon 09-25-2017 Magnesium mass conc 1.8 mg/dL Low 1.9-2.7 The [facility] Comment on above: Performed By: #### 4 4373, 99213 ####[facility]3000 [facility].[address] PHOSPHORUS BLOODon 8 Phosphate mass conc 3.4 mg/dL Normal 2.5-5.0 The [facility] Comment on above: Performed By: #### 4 4341, 19873 ####[facility]3000 [facility].[address] TACROLIMUSon 09-25-2017 Tacrolimus mass conc (Bld) 3.6 ng/mL Low 5.0-20.0 The [facility] Comment on above: Result Comment: The [employer] Tacrolimus assay is a delayed one-step immunoassayfor the quantitative determination of tacrolimus in human whole bloodusing the chemiluminescent microparticle immunoassay (CMIA) technologywith flexible assay protocols, referred to as Chemiflex. Performed By: #### 4 6447, 32660 ####[facility] URIC ACID BLOODon 09-25-2017 Urate mass conc 4.7 mg/dL Normal 2.3-6.6 The [facility] Comment on above: Performed By: #### 4 6447, 56606 ####[address] BK VIRUS QUANTITATION PCR BL OODon 08-26-2017 BKV QUANT PCR Not detected Normal The [facility] Comment on above: Result Comment: Meth od: BK virus was measured by quantitative polymerase chain reactionusing a TaqMan probe targeting the polyomavirus BK ELECTRIC RE[employer]IGERATOR SERVICER-1 gene.The lower limit of quantitation of the assay is 500 copies of BK genomeper milliliter of plasma or urine, and any detectable BK DNA below thatlevel is reported as: Detected, <500 copies/ml. Serial BK virusmeasurement can be used to monitor disease activity. (Reference:Kelsie vaughanl. J CLIN MICRO 2004; 42:8335-8291).This test was developed and its performance characteristics determinedby the [facility]. It has not been approvedby the [place] Food and Drug Administration. However, such approval is notrequired for clinical implementation, and test results have been shownto be clinically useful. This laboratory is CAP accredited and CLIAcertified to perform high complexity testing. Performed By: #### 4 1000, 59216, 18194, 68516, 74296, 20168 ####[place] [address] [address] LOG 10 COPIES Not detected Normal The [facility] Comment on above: Performed By: #### 4 1000, 35599, 04462, 31993, 78040, 96001 ####[facility] [facility].[address] CBC W/DIFFon 08-26-2017 ABS BASOPHILS 0.0 10*3/uL Normal 0.0-0.2 The [facility] Comment on above: Performed By: #### 4 1000, 00805, 43641, 94355, 58433, 97387 ####[facility] [facility].[address] ABS IMM GRANS 0.0 10*3/uL Normal 0.0-0.2 The [facility] Comment on above: Performed By: #### 4 1000, 61744, 11319, 12869, 51055, 54969 ####[facility] [facility].[address] ABS NEUTROPHILS 4.5 10*3/uL Normal 1.6-7.6 The [facility] Comment on above: Performed By: #### 4 1000, 18600, 99991, 38005, 46828, 91428 ####[facility] [facility].[address] Basophils Auto #/vol (Bld) 0.2 % Normal 0.0-1.0 The [facility] Comment on above: Performed By: #### 4 1000, 95792, 70094, 97102, 13159, 56017 ####[facility] [facility].[address] Eosinophils Auto #/vol (Bld) 0.2 10*3/uL Normal 0.0-0.5 The [facility] Comment on above: Performed By: #### 4 1000, 53345, 85279, 66245, 68707, 16001 ####[facility] [facility].[address] Eosinophils/100 WBC Auto (Bld) 2.4 % Normal 0.0-6.0 The [facility] Comment on above: Performed By: #### 4 1000, 57904, 91652, 75494, 00578, 80110 ####[place] [address] [facility].[address] Erythrocyte distribution width Auto Ratio (RBC) 14.0 % Normal 11.5-15.0 The [facility] Comment on above: Performed By: #### 4 1000, 93638, 41391, 57625, 13196, 86098 ####[place] [address] [facility].[address] Hematocrit Auto Volume Fraction (Bld) 44.9 % Normal 36.0-45.0 The [facility] Comment on above: Performed By: #### 4 1000, 37183, 79791, 17329, 93495, 61528 ####[place] [address] [facility].[address] Hemoglobin mass conc (Bld) 14.9 g/dL Normal 12.0-15.0 The [facility] Comment on above: Performed By: #### 4 1000, 68249, 54219, 15366, 75551, 04503 ####[address] IMMATURE GRANS 0.5 % Normal 0.0-1.0 The [facility] Comment on above: Performed By: #### 4 1000, 88493, 44074, 91403, 82420, 97081 ####[place] [address] [facility].[address] Lymphocytes Auto #/vol (Bld) 1.0 10*3/uL Low 1.2-4.0 The [facility] Comment on above: Performed By: #### 4 1000, 76013, 91619, 57686, 23979, 69540 ####[facility] [facility].[address] Lymphocytes/100 WBC Auto (Bld) 15.8 % Low 20.0-45.0 The [facility] Comment on above: Performed By: #### 4 1000, 31307, 86435, 14351, 55099, 58385 ####[facility]3000 [facility].[address] MCH Auto Entitic mass (RBC) 29.1 pg Normal 27.0-33.0 The [facility] Comment on above: Performed By: #### 4 1000, 69464, 29857, 17139, 22917, 31658 ####[facility]3000 [facility].[address] MCHC Auto mass conc (RBC) 33.2 g/dL Normal 32.0-35.0 The [facility] Comment on above: Performed By: #### 4 1000, 62851, 08394, 59652, 23920, 37215 ####[facility]3000 [facility].[address] MCV Auto Entitic volume (RBC) 87.7 fL Normal 82.0-98.0 The [facility] Comment on above: Performed By: #### 4 1000, 67391, 84989, 41385, 84100, 86610 ####[facility]3000 [facility].[address] Monocytes Auto #/vol (Bld) 0.7 10*3/uL Normal 0.1-1.0 The [facility] Comment on above: Performed By: #### 4 1000, 68785, 66319, 62062, 92579, 27706 ####[facility]3000 [facility].[address] MONOS 10.6 % Normal 5.0-12.0 The [facility] Comment on above: Performed By: #### 4 1000, 66039, 62146, 54946, 71395, 63476 ####[facility] Neutrophils/100 WBC Auto (Bld) 70.5 % Normal 40.0-72.0 [facility] Comment on above: Performed By: #### 4 1000, 58829, 10828, 93686, 55117, 58531 ####[facility] Nucleated RBC/100 WBC Ratio (Bld) 0 % Normal 0-0 The [facility] Comment on above: Performed By: #### 4 1000, 52726, 27403, 50678, 91251, 17038 ####[facility] PLAT CNT 231 10*3/uL Normal 150-400 The [facility] Comment on above: Performed By: #### 4 1000, 02254, 26263, 15759, 26786, 60106 ####[facility] RBC Auto #/vol (Bld) 5.12 10*6/uL High 3.80-5.00 Th e [facility] Comment on above: Performed By: #### 4 1000, 02842, 40068, 19701, 29829, 20563 ####[facility] WBC Auto #/vol (Bld) 6.32 10*3/uL Normal 4.00-10.60 Th e [facility] Comment on above: Performed By: #### 4 1000, 80899, 97619, 19934, 42334, 23034 ####[facility] COMP METABOLIC PANELon 08-26 Albumin mass conc 4.3 g/dL Normal 3.5-5.7 [facility] Comment on above: Performed By: #### 4 1000, 09240, 77363, 95011, 38849, 14207 ####[facility] [place] [address], [facility] ALKALINE PHOSPH 125 IU/L High 34-104 [facility] Comment on above: Performed By: #### 4 1000, 00571, 61393, 08469, 25621, 69867 ####[facility] [place] [address], [facility] ALT enzyme act/vol 17 U/L Normal 7-52 [facility] Comment on above: Performed By: #### 4 1000, 18170, 06166, 54319, 89078, 86692 ####[facility] [place] [address], [facility] AST enzyme act/vol 23 U/L Normal 13-39 [facility] Comment on above: Performed By: #### 4 1000, 14095, 92921, 98599, 65405, 18881 ####[facility] [place] [address], [facility] Bilirubin mass conc 0.4 mg/dL Normal 0.3-1.0 The [facility] Comment on above: Performed By: #### 4 1000, 50808, 69926, 95852, 71800, 52148 ####[facility] [place] [address], [facility] Calcium mass conc 9.6 mg/dL Normal 8.6-10.3 [facility] Comment on above: Performed By: #### 4 1000, 93577, 33849, 40729, 34443, 91642 ####[facility] [place] [address], [facility] Chloride molar conc 104 mmol/L Normal 98-107 The [facility] Comment on above: Performed By: #### 4 1000, 49252, 77590, 45519, 48196, 42670 ####[facility] [place] [address], [facility] CO2 molar conc 27 mmol/L Normal 21-31 The [facility] Comment on above: Performed By: #### 4 1000, 81514, 89125, 77371, 16705, 48704 ####[facility] [place] [address], [facility] Creatinine mass conc 0.77 mg/dL Normal 0.60-1.20 [facility] Comment on above: Performed By: #### 4 1000, 16120, 70941, 71671, 42208, 73633 ####[facility] [place] [address], [facility] GFR/1.73 sq M predicted among blacks MDRD vol rate/area (S/P/Bld) mL/min/{1.73_m2} Normal >60 [facility] Comment on above: Performed By: #### 4 1000, 53707, 35266, 60232, 30980, 77520 ####[facility] [facility] [address], [facility] GFR/1.73 sq M predicted among non-blacks MDRD vol rate/area (S/P/Bld) mL/min/{1.73_m2} Normal >60 [facility] Comment on above: Performed By: #### 4 1000, 00587, 37303, 26795, 06069, 83195 ####[facility] [place] [address], [facility] Glucose mass conc 95 mg/dL Normal 70-100 [facility] Comment on above: Performed By: #### 4 1000, 42358, 87034, 81460, 86871, 47103 ####[facility] Potassium molar conc 4.1 mmol/L Normal 3.5-5.1 The [facility] Comment on above: Performed By: #### 4 1000, 27259, 92130, 84747, 39574, 61388 ####[facility] Protein mass conc 7.3 g/dL Normal 6.0-8.3 [facility] Comment on above: Performed By: #### 4 1000, 51621, 89424, 45011, 60174, 17535 ####[facility] Sodium molar conc 139 mmol/L Normal 136-145 [facility] Comment on above: Performed By: #### 4 1000, 32071, 70591, 85839, 47358, 69449 ####[facility] Urea nitrogen mass conc 12 mg/dL Normal 7-25 The [facility] Comment on above: Performed By: #### 4 1000, 47240, 76394, 80069, 23082, 70963 ####[facility] DIRECT BILIon 08-26-2017 Bilirubin.direct mass conc 0.1 mg/dL Normal 0.0-0.2 The [facility] Comment on above: Performed By: #### 4 1000, 96081, 70889, 25390, 21287, 37921 ####[facility] EVEROLIMUS 85495em 8 EVEROLIMUS 5.6 ng/mL Normal The [facility] Comment on above: Result Comment: [...] the transplantcenter.Test developed and characteristics determined by [employer]. See Compliance Statement B: Really Simple/CSPerformed by [employer],[address] [place] [id number] qxx.[employer], Leonid Antonio MD - Lab. Director HEMOGLOBIN A1Con 08-26-2017 Glucose mass conc 114 mg/dL Normal 70-126 [facility] Comment on above: Performed By: #### 4 1000, 66324, 38426, 41471, 08844, 81926 ####[facility] [facility].[address] Hemoglobin A1c/Hemoglobin.total mass fraction (Bld) 5.6 % Normal 4.0-6.0 [facility] Comment on above: Performed By: #### 4 1000, 95923, 61499, 11612, 94373, 81348 ####[facility] [facility].[address] LIPID PROFILEon 08-26-2017 Cholesterol in HDL mass conc 49 mg/dL Normal 23-92 [facility] Comment on above: Result Comment: Slig ht variation in normal range could be due to gender and/or age.HDL CHOLESTEROL REFERENCE RANGE:20 years and older Cardiovascular Risk> or =60 mg/dL Hprtzwkli20 TO 59 mg/dL Low Risk<40 mg/dL High Risk Performed By: #### 4 1000, 54193, 96950, 87405, 13740, 36754 ####[facility] [facility] [address], [facility] Cholesterol in LDL mass conc 76 mg/dL Normal 0-130 [facility] Comment on above: Result Comment: LDL IS A CALCULATIONLDL IS ONLY VALID IF THE TRIG IS LESS THAN 400. Performed By: #### 4 1000, 40597, 40167, 68309, 33554, 20373 ####[facility] [facility] [place] [address], [facility] Cholesterol mass conc 152 mg/dL Normal 120-200 [facility] Comment on above: Result Comment: CHOL ESTEROL REFERENCE RANGE:20 YEARS AND OLDER CARDIOVASCULAR RISKLess than 200 mg/dl Low Qkhf103 to 239 mg/dl Borderline Zrfk075 mg/dl and greater High Risk Performed By: #### 4 1000, 15978, 21626, 24640, 20900, 78466 ####[facility] [facility] [place] [address], [facility] Cholesterol.total/Cho lesterol in HDL mass ratio 3.1 {ratio} Normal .0-4.5 [facility] Comment on above: Performed By: #### 4 1000, 21168, 63332, 22325, 30924, 25555 ####[facility] [facility] [place] [address], [facility] NON-HDL CHOLESTEROL 103 mg/dL Normal [facility] Comment on above: Performed By: #### 4 1000, 50772, 62128, 25908, 06266, 08171 ####[facility] [facility] [place] [address], [facility] Triglyceride mass conc 133 mg/dL Normal 40-149 The [facility] Comment on above: Result Comment: TRIG LYCERIDE REFERENCE RANGE:20 YEARS AND OLDER CARDIOVASCULAR RISKLESS THAN 150 mg/dl LOW [id number] TO 199 mg/dl BORDERLINE [id number] mg/dl AND GREATER HIGH RISK Performed By: #### 4 1000, 99563, 56517, 99134, 32747, 63593 ####[facility] VLDL CHOL 27 mg/dL Normal 0-40 The [facility] Comment on above: Performed By: #### 4 1000, 89311, 55290, 19998, 56194, 00142 ####[facility] [facility].[address] MAGNESIUM BLOODon 08-26-2017 Magnesium mass conc 1.9 mg/dL Normal 1.9-2.7 The [facility] Comment on above: Performed By: #### 4 1000, 71296, 76333, 46988, 86070, 02770 ####[facility] [facility].[address] PHOSPHORUS BLOODon 8 Phosphate mass conc 3.4 mg/dL Normal 2.5-5.0 The [facility] Comment on above: Performed By: #### 4 1000, 41280, 97187, 06193, 54344, 61185 ####[facility] [facility].[address] TACROLIMUSon 08-26-2017 Tacrolimus mass conc (Bld) 4.3 ng/mL Low 5.0-20.0 The [facility] Comment on above: Result Comment: The [employer] Tacrolimus assay is a delayed one-step immunoassayfor the quantitative determination of tacrolimus in human whole bloodusing the chemiluminescent microparticle immunoassay (CMIA) technologywith flexible assay protocols, referred to as Chemiflex. Performed By: #### 4 1000, 29816, 42081, 42887, 44716, 80944 ####[facility] [facility].[address] URIC ACID BLOODon 08-26-2017 Urate mass conc 4.6 mg/dL Normal 2.3-6.6 [facility] Comment on above: Performed By: #### 4 1000, 14163, 77303, 07746, 74804, 87607 ####[facility] [facility].[address] CBC W/DIFFon 07-23-2017 ABS BASOPHILS 0.0 10*3/uL Normal 0.0-0.2 The [facility] Comment on above: Performed By: #### 4 1000, 04033, 09679, 07530, 56988, 13637 ####[facility] [facility].[address] ABS IMM GRANS 0.0 10*3/uL Normal 0.0-0.2 The [facility] Comment on above: Performed By: #### 4 1000, 50041, 75506, 43776, 36935, 93980 ####[facility] [facility].[address] ABS NEUTROPHILS 4.4 10*3/uL Normal 1.6-7.6 The [facility] Comment on above: Performed By: #### 4 1000, 40331, 78718, 09242, 85374, 23626 ####[facility] [facility].[address] Basophils Auto #/vol (Bld) 0.2 % Normal 0.0-1.0 The [facility] Comment on above: Performed By: #### 4 1000, 97539, 19237, 11268, 98996, 64747 ####[facility] [facility].[address] Eosinophils Auto #/vol (Bld) 0.1 10*3/uL Normal 0.0-0.5 The [facility] Comment on above: Performed By: #### 4 1000, 98313, 64112, 59545, 13790, 07436 ####[facility] [facility].[address] Eosinophils/100 WBC Auto (Bld) 2.1 % Normal 0.0-6.0 The [facility] Comment on above: Performed By: #### 4 1000, 57175, 79563, 05132, 33882, 32590 ####[facility] Erythrocyte distribution width Auto Ratio (RBC) 13.7 % Normal 11.5-15.0 The [facility] Comment on above: Performed By: #### 4 1000, 10316, 26305, 40135, 06056, 74649 ####[facility] Hematocrit Auto Volume Fraction (Bld) 44.4 % Normal 36.0-45.0 The [facility] Comment on above: Performed By: #### 4 1000, 38281, 05730, 88890, 35319, 23240 ####[facility] Hemoglobin mass conc (Bld) 14.7 g/dL Normal 12.0-15.0 The [facility] Comment on above: Performed By: #### 4 1000, 19596, 74216, 48327, 06841, 00004 ####[facility] IMMATURE GRANS 0.5 % Normal 0.0-1.0 The [facility] Comment on above: Performed By: #### 4 1000, 22188, 01826, 41336, 45042, 03007 ####[facility] Lymphocytes Auto #/vol (Bld) 1.0 10*3/uL Low 1.2-4.0 The [facility] Comment on above: Performed By: #### 4 1000, 80066, 84350, 28819, 59990, 26377 ####[facility] [facility].[address] Lymphocytes/100 WBC Auto (Bld) 15.5 % Low 20.0-45.0 The [facility] Comment on above: Performed By: #### 4 1000, 39645, 15488, 12781, 06197, 50053 ####[address] MCH Auto Entitic mass (RBC) 28.9 pg Normal 27.0-33.0 The [facility] Comment on above: Performed By: #### 4 1000, 42805, 70946, 24165, 60357, 78735 ####[address] MCHC Auto mass conc (RBC) 33.1 g/dL Normal 32.0-35.0 The [facility] Comment on above: Performed By: #### 4 1000, 57537, 17384, 41438, 20818, 30380 ####[place] [id number] [facility].[address] MCV Auto Entitic volume (RBC) 87.4 fL Normal 82.0-98.0 The [facility] Comment on above: Performed By: #### 4 1000, 96358, 19097, 11552, 11998, 51282 ####[place] [address] [facility].[address] Monocytes Auto #/vol (Bld) 0.8 10*3/uL Normal 0.1-1.0 The [facility] Comment on above: Performed By: #### 4 1000, 94525, 98036, 52602, 57558, 64386 ####[facility] [facility].[address] MONOS 12.3 % High 5.0-12.0 The [facility] Comment on above: Performed By: #### 4 1000, 09102, 49386, 67017, 05213, 39520 ####[facility] [facility] [place] [address], [facility] Neutrophils/100 WBC Auto (Bld) 69.4 % Normal 40.0-72.0 The [facility] Comment on above: Performed By: #### 4 1000, 31242, 40230, 18374, 99168, 31903 ####[facility] [facility].[address] Nucleated RBC/100 WBC Ratio (Bld) 0 % Normal 0-0 The [facility] Comment on above: Performed By: #### 4 1000, 65391, 46396, 64208, 53281, 12701 ####[facility] [facility].[address] PLAT CNT 218 10*3/uL Normal 150-400 The [facility] Comment on above: Performed By: #### 4 1000, 00585, 96852, 90496, 43464, 37349 ####[facility] [facility].[address] RBC Auto #/vol (Bld) 5.08 10*6/uL High 3.80-5.00 [facility] Comment on above: Performed By: #### 4 1000, 63246, 52275, 27592, 75357, 53880 ####[facility] [facility].[address] WBC Auto #/vol (Bld) 6.3 10*3/uL Normal 4.0-10.6 The [facility] Comment on above: Performed By: #### 4 1000, 42721, 28770, 55774, 35730, 38460 ####[facility] [facility].[address] COMP METABOLIC PANELon 07-23 Albumin mass conc 4.2 g/dL Normal 3.5-5.7 The [facility] Comment on above: Performed By: #### 4 1000, 87189, 14542, 82521, 38324, 37821 ####[facility] [place] [address], [facility] ALKALINE PHOSPH 113 IU/L High 34-104 [facility] Comment on above: Performed By: #### 4 1000, 90152, 22080, 86606, 39447, 95770 ####[facility] ALT enzyme act/vol 23 U/L Normal 7-52 The [facility] Comment on above: Performed By: #### 4 1000, 53511, 89275, 95901, 42917, 05830 ####[facility] AST enzyme act/vol 25 U/L Normal 13-39 [facility] Comment on above: Performed By: #### 4 1000, 94495, 01850, 13802, 60683, 02398 ####[facility] [place] [address], [facility] Bilirubin mass conc 0.6 mg/dL Normal 0.3-1.0 The [facility] Comment on above: Performed By: #### 4 1000, 29400, 29748, 67603, 56033, 89173 ####[facility] [place] [address], [facility] Calcium mass conc 9.6 mg/dL Normal 8.6-10.3 [facility] Comment on above: Performed By: #### 4 1000, 40660, 13385, 75165, 09003, 08340 ####[facility] [place] [address], [facility] Chloride molar conc 104 mmol/L Normal 98-107 The [facility] Comment on above: Performed By: #### 4 1000, 06081, 41005, 72364, 43546, 67887 ####[facility] [place] [address], [facility] CO2 molar conc 25 mmol/L Normal 21-31 [facility] Comment on above: Performed By: #### 4 1000, 64502, 01268, 94294, 28313, 82775 ####[facility] [place] [address], [facility] Creatinine mass conc 0.80 mg/dL Normal 0.60-1.20 [facility] Comment on above: Performed By: #### 4 1000, 01813, 98884, 97560, 06583, 15351 ####[facility] [place] [address], [facility] GFR/1.73 sq M predicted among blacks MDRD vol rate/area (S/P/Bld) mL/min/{1.73_m2} Normal >60 [facility] Comment on above: Performed By: #### 4 1000, 72032, 91592, 41395, 20734, 92604 ####[facility] [place] [address], [facility] GFR/1.73 sq M predicted among non-blacks MDRD vol rate/area (S/P/Bld) mL/min/{1.73_m2} Normal >60 [facility] Comment on above: Performed By: #### 4 1000, 22956, 87139, 37137, 44749, 81384 ####[facility] [place] [address], [place] Glucose mass conc 91 mg/dL Normal 70-100 [facility] Comment on above: Performed By: #### 4 1000, 03794, 87763, 08843, 04200, 51756 ####[facility] [place] [address], [place] Potassium molar conc 4.0 mmol/L Normal 3.5-5.1 The [facility] Comment on above: Performed By: #### 4 1000, 42356, 92358, 46167, 71233, 26297 ####[facility] Protein mass conc 6.8 g/dL Normal 6.0-8.3 [facility] Comment on above: Performed By: #### 4 1000, 14108, 72851, 16820, 86672, 85660 ####[facility] Sodium molar conc 140 mmol/L Normal 136-145 [facility] Comment on above: Performed By: #### 4 1000, 38360, 28090, 66239, 25349, 99822 ####[facility] Urea nitrogen mass conc 16 mg/dL Normal 7-25 The [facility] Comment on above: Performed By: #### 4 1000, 27423, 31910, 57081, 72493, 72193 ####[facility] DIRECT BILIon 07-23-2017 Bilirubin.direct mass conc 0.2 mg/dL Normal 0.0-0.2 The [facility] Comment on above: Performed By: #### 4 1000, 29225, 71298, 00861, 22746, 41718 ####[facility] EVEROLIMUS 68753li 8 EVEROLIMUS 5.3 ng/mL Normal The [facility] Comment on above: Result Comment: [...] the transplantcenter.Test developed and characteristics determined by [employer] [place] - 2. See Compliance Statement B: Really Simple/CSPerformed by [employer],[address] [place] [id number] ohi.[employer], Leonid Antonio MD - Lab. Director LIPID PROFILEon 07-23-2017 Cholesterol in HDL mass conc 45 mg/dL Normal 23-92 The [facility] Comment on above: Result Comment: Slig ht variation in normal range could be due to gender and/or age.HDL CHOLESTEROL REFERENCE RANGE:20 years and older Cardiovascular Risk> or =60 mg/dL Byuzywtjf70 TO 59 mg/dL Low Risk<40 mg/dL High Risk Performed By: #### 4 1000, 72414, 13036, 88685, 16219, 01990 ####[facility] [facility].[address] Cholesterol in LDL mass conc 79 mg/dL Normal 0-130 The [facility] Comment on above: Result Comment: LDL IS A CALCULATIONLDL IS ONLY VALID IF THE TRIG IS LESS THAN 400. Performed By: #### 4 1000, 66154, 47120, 13045, 36592, 07879 ####[facility] [place] [address], [facility] Cholesterol mass conc 141 mg/dL Normal 120-200 The [facility] Comment on above: Result Comment: CHOL ESTEROL REFERENCE RANGE:20 YEARS AND OLDER CARDIOVASCULAR RISKLess than 200 mg/dl Low Rujj937 to 239 mg/dl Borderline Lwvt574 mg/dl and greater High Risk Performed By: #### 4 1000, 73251, 88220, 41612, 44534, 91751 ####[facility] Cholesterol.total/Cho lesterol in HDL mass ratio 3.1 {ratio} Normal .0-4.5 The [facility] Comment on above: Performed By: #### 4 1000, 62319, 26665, 81308, 66946, 15746 ####[facility] [facility].[address] NON-HDL CHOLESTEROL 96 mg/dL Normal The [facility] Comment on above: Performed By: #### 4 1000, 92967, 21563, 70843, 92651, 95008 ####[facility] [facility].[address] Triglyceride mass conc 83 mg/dL Normal 40-149 The [facility] Comment on above: Result Comment: TRIG LYCERIDE REFERENCE RANGE:20 YEARS AND OLDER CARDIOVASCULAR RISKLESS THAN 150 mg/dl LOW [id number] TO 199 mg/dl BORDERLINE [id number] mg/dl AND GREATER HIGH RISK Performed By: #### 4 1000, 66075, 59020, 81180, 76585, 76506 ####[facility] [facility].[address] VLDL CHOL 17 mg/dL Normal 0-40 The [facility] Comment on above: Performed By: #### 4 1000, 38576, 15745, 51633, 51666, 27948 ####[facility] [facility].[address] MAGNESIUM BLOODon 07-23-2017 Magnesium mass conc 2.0 mg/dL Normal 1.9-2.7 The [facility] Comment on above: Performed By: #### 4 1000, 55125, 82486, 85640, 74361, 65111 ####[facility] [facility].[address] PHOSPHORUS BLOODon 8 Phosphate mass conc 4.0 mg/dL Normal 2.5-5.0 The [facility] Comment on above: Performed By: #### 4 1000, 48553, 96079, 75950, 27134, 14138 ####[facility] [facility].[address] TACROLIMUSon 07-23-2017 Tacrolimus mass conc (Bld) 4.6 ng/mL Low 5.0-20.0 The [facility] Comment on above: Result Comment: The [employer] Tacrolimus assay is a delayed one-step immunoassayfor the quantitative determination of tacrolimus in human whole bloodusing the chemiluminescent microparticle immunoassay (CMIA) technologywith flexible assay protocols, referred to as Chemiflex. Performed By: #### 4 1000, 41237, 96020, 64375, 61052, 84940 ####[facility] URIC ACID BLOODon 07-23-2017 Urate mass conc 4.7 mg/dL Normal 2.3-6.6 [facility] Comment on above: Performed By: #### 4 1000, 61449, 52026, 32847, 20536, 00414 ####[facility] [facility].[address] CBC W/DIFFon 06-20-2017 ABS BASOPHILS 0.0 10*3/uL Normal 0.0-0.2 The [facility] Comment on above: Performed By: #### 4 1000, 01490, 59498, 12012, 74233, 39825 ####[facility] ABS IMM GRANS 0.0 10*3/uL Normal 0.0-0.2 The [facility] Comment on above: Performed By: #### 4 1000, 05316, 82404, 71035, 79896, 52141 ####[facility] ABS NEUTROPHILS 4.2 10*3/uL Normal 1.6-7.6 The [facility] Comment on above: Performed By: #### 4 1000, 01478, 38780, 92751, 75945, 59976 ####[facility] Basophils Auto #/vol (Bld) 0.2 % Normal 0.0-1.0 The [facility] Comment on above: Performed By: #### 4 1000, 40825, 83753, 36072, 21839, 33820 ####[facility] Eosinophils Auto #/vol (Bld) 0.1 10*3/uL Normal 0.0-0.5 The [facility] Comment on above: Performed By: #### 4 1000, 42498, 95416, 26679, 04550, 56413 ####[facility] Eosinophils/100 WBC Auto (Bld) 1.5 % Normal 0.0-6.0 The [facility] Comment on above: Performed By: #### 4 1000, 50937, 80824, 39565, 52558, 23046 ####[facility] Erythrocyte distribution width Auto Ratio (RBC) 13.4 % Normal 11.5-15.0 The [facility] Comment on above: Performed By: #### 4 1000, 38745, 78644, 26328, 63972, 68811 ####[facility] Hematocrit Auto Volume Fraction (Bld) 44.9 % Normal 36.0-45.0 The [facility] Comment on above: Performed By: #### 4 1000, 37853, 07711, 08878, 30528, 33428 ####[facility]3000 [facility].[address] Hemoglobin mass conc (Bld) 14.9 g/dL Normal 12.0-15.0 The [facility] Comment on above: Performed By: #### 4 1000, 67799, 97393, 58288, 66636, 04225 ####[facility]3000 [facility].[address] IMMATURE GRANS 0.2 % Normal 0.0-1.0 [facility] Comment on above: Performed By: #### 4 1000, 06425, 84216, 31027, 43025, 87773 ####[place] [id number] [facility].[address] Lymphocytes Auto #/vol (Bld) 1.1 10*3/uL Low 1.2-4.0 The [facility] Comment on above: Performed By: #### 4 1000, 52309, 32981, 73925, 98812, 75427 ####[facility]3000 [facility].[address] Lymphocytes/100 WBC Auto (Bld) 17.4 % Low 20.0-45.0 The [facility] Comment on above: Performed By: #### 4 1000, 79471, 41308, 58438, 05875, 54064 ####[facility]3000 [facility].[address] MCH Auto Entitic mass (RBC) 29.2 pg Normal 27.0-33.0 The [facility] Comment on above: Performed By: #### 4 1000, 46823, 44475, 63396, 60489, 43593 ####[facility]3000 [facility].[address] MCHC Auto mass conc (RBC) 33.2 g/dL Normal 32.0-35.0 The [facility] Comment on above: Performed By: #### 4 1000, 22685, 45936, 38927, 60978, 23111 ####[facility] MCV Auto Entitic volume (RBC) 87.9 fL Normal 82.0-98.0 The [facility] Comment on above: Performed By: #### 4 1000, 73666, 03931, 98917, 27788, 26640 ####[facility] Monocytes Auto #/vol (Bld) 0.7 10*3/uL Normal 0.1-1.0 The [facility] Comment on above: Performed By: #### 4 1000, 96389, 12413, 11977, 41101, 90032 ####[facility] MONOS 11.3 % Normal 5.0-12.0 The [facility] Comment on above: Performed By: #### 4 1000, 81898, 91263, 32765, 16950, 05789 ####[facility] Neutrophils/100 WBC Auto (Bld) 69.4 % Normal 40.0-72.0 The [facility] Comment on above: Performed By: #### 4 1000, 89841, 16445, 02761, 51279, 88299 ####[facility] Nucleated RBC/100 WBC Ratio (Bld) 0 % Normal 0-0 The [facility] Comment on above: Performed By: #### 4 1000, 98055, 16783, 59899, 31328, 26389 ####[facility] PLAT CNT 198 10*3/uL Normal 150-400 The [facility] Comment on above: Performed By: #### 4 1000, 40728, 55824, 68473, 18836, 99432 ####[facility] RBC Auto #/vol (Bld) 5.11 10*6/uL High 3.80-5.00 [facility] Comment on above: Performed By: #### 4 1000, 01879, 92499, 35265, 27894, 50510 ####[facility] WBC Auto #/vol (Bld) 6.0 10*3/uL Normal 4.0-10.6 [facility] Comment on above: Performed By: #### 4 1000, 10622, 28186, 62606, 48792, 47043 ####[facility] COMP METABOLIC PANELon 06-20 Albumin mass conc 4.4 g/dL Normal 3.5-5.7 The [facility] Comment on above: Performed By: #### 4 1000, 96859, 26827, 89990, 08871, 04654 ####[facility] ALKALINE PHOSPH 133 IU/L High 34-104 [facility] Comment on above: Performed By: #### 4 1000, 31904, 10683, 39660, 21101, 81347 ####[facility] ALT enzyme act/vol 16 U/L Normal 7-52 The [facility] Comment on above: Performed By: #### 4 1000, 52872, 96232, 84366, 98267, 67231 ####[facility] [place] [address], [facility] AST enzyme act/vol 21 U/L Normal 13-39 The [facility] Comment on above: Performed By: #### 4 1000, 68674, 59247, 36972, 10325, 38142 ####[facility] [place] [address], [place] Bilirubin mass conc 0.8 mg/dL Normal 0.3-1.0 The [facility] Comment on above: Performed By: #### 4 1000, 18707, 40338, 27837, 55699, 24310 ####[facility] [place] [address], [facility] Calcium mass conc 10.0 mg/dL Normal 8.6-10.3 The [facility] Comment on above: Performed By: #### 4 1000, 19449, 75472, 97647, 05569, 93805 ####[facility] [place] [address], [place] Chloride molar conc 106 mmol/L Normal 98-107 The [facility] Comment on above: Performed By: #### 4 1000, 56287, 28521, 38197, 22878, 44453 ####[facility] [place] [address], [place] CO2 molar conc 27 mmol/L Normal 21-31 The [facility] Comment on above: Performed By: #### 4 1000, 33565, 51222, 34394, 28130, 63074 ####[facility] [place] [address], [place] Creatinine mass conc 0.74 mg/dL Normal 0.60-1.20 The [facility] Comment on above: Performed By: #### 4 1000, 67060, 33723, 57889, 00335, 16140 ####[facility] [place] [address], [facility] GFR/1.73 sq M predicted among blacks MDRD vol rate/area (S/P/Bld) mL/min/{1.73_m2} Normal >60 The [facility] Comment on above: Performed By: #### 4 1000, 19714, 36391, 36421, 51324, 32629 ####[facility] [place] [address], [facility] GFR/1.73 sq M predicted among non-blacks MDRD vol rate/area (S/P/Bld) mL/min/{1.73_m2} Normal >60 The [facility] Comment on above: Performed By: #### 4 1000, 86234, 68922, 01997, 92475, 26547 ####[facility] [place] [address], [facility] Glucose mass conc 95 mg/dL Normal 70-100 The [facility] Comment on above: Performed By: #### 4 1000, 74568, 48856, 38841, 84913, 73511 ####[facility] [place] [address], [facility] Potassium molar conc 3.8 mmol/L Normal 3.5-5.1 The [facility] Comment on above: Performed By: #### 4 1000, 76612, 64117, 26720, 85080, 70221 ####[facility] [place] [address], [facility] Protein mass conc 7.3 g/dL Normal 6.0-8.3 The [facility] Comment on above: Performed By: #### 4 1000, 91812, 75774, 68846, 02508, 76152 ####[facility] [place] [address], [facility] Sodium molar conc 137 mmol/L Normal 136-145 The [facility] Comment on above: Performed By: #### 4 1000, 90109, 17224, 46873, 68379, 66342 ####[facility] [place] [address], [facility] Urea nitrogen mass conc 16 mg/dL Normal 7-25 The [facility] Comment on above: Performed By: #### 4 1000, 46132, 37214, 85423, 12097, 35391 ####[facility] DIRECT BILIon 06-20-2017 Bilirubin.direct mass conc 0.1 mg/dL Normal 0.0-0.2 The [facility] Comment on above: Performed By: #### 4 1000, 82152, 45390, 05988, 44692, 89882 ####[facility] EVEROLIMUS 25232cc 8 EVEROLIMUS 6.7 ng/mL Normal The [facility] Comment on above: Result Comment: [...] the transplantcenter.Test developed and characteristics determined by [employer]. See Compliance Statement B: [email or web address] by [employer],[address] [place] [address] gdn.[employer], Leonid Antonio MD - Lab. Director LIPID PROFILEon 06-20-2017 Cholesterol in HDL mass conc 45 mg/dL Normal 23-92 [facility] Comment on above: Result Comment: Slig ht variation in normal range could be due to gender and/or age.HDL CHOLESTEROL REFERENCE RANGE:20 years and older Cardiovascular Risk> or =60 mg/dL [id number] TO 59 mg/dL Low Risk<40 mg/dL High Risk Performed By: #### 4 1000, 74119, 09085, 84862, 05023, 00053 ####[facility] [place] [address], [place] Cholesterol in LDL mass conc 58 mg/dL Normal 0-130 [facility] Comment on above: Result Comment: LDL IS A CALCULATIONLDL IS ONLY VALID IF THE TRIG IS LESS THAN 400. Performed By: #### 4 1000, 89363, 10509, 79047, 55028, 41838 ####[facility] [place] [address], [place] Cholesterol mass conc 126 mg/dL Normal 120-200 [facility] Comment on above: Result Comment: CHOL ESTEROL REFERENCE RANGE:20 YEARS AND OLDER CARDIOVASCULAR RISKLess than 200 mg/dl Low Pyxw519 to 239 mg/dl Borderline Ibhe092 mg/dl and greater High Risk Performed By: #### 4 1000, 83195, 03366, 63692, 62363, 51176 ####[facility] [place] [address], [place] Cholesterol.total/Cho lesterol in HDL mass ratio 2.8 {ratio} Normal .0-4.5 [facility] Comment on above: Performed By: #### 4 1000, 17828, 82466, 10285, 99925, 02963 ####[facility] [place] [address], [place] NON-HDL CHOLESTEROL 81 mg/dL Normal [facility] Comment on above: Performed By: #### 4 1000, 11990, 47366, 93033, 44751, 81442 ####[facility] Triglyceride mass conc 113 mg/dL Normal 40-149 The [facility] Comment on above: Result Comment: TRIG LYCERIDE REFERENCE RANGE:20 YEARS AND OLDER CARDIOVASCULAR RISKLESS THAN 150 mg/dl LOW PEXO930 TO 199 mg/dl BORDERLINE WBNR703 mg/dl AND GREATER HIGH RISK Performed By: #### 4 1000, 26997, 59367, 97511, 17047, 34802 ####[facility]3000 [facility].[address] VLDL CHOL 23 mg/dL Normal 0-40 The [facility] Comment on above: Performed By: #### 4 1000, 14142, 16540, 03085, 77377, 36061 ####[facility]3000 [facility].[address] MAGNESIUM BLOODon 06-20-2017 Magnesium mass conc 1.9 mg/dL Normal 1.9-2.7 The [facility] Comment on above: Performed By: #### 4 1000, 88183, 30037, 57536, 50425, 90792 ####[facility]3000 [facility].[address] PHOSPHORUS BLOODon 8 Phosphate mass conc 3.1 mg/dL Normal 2.5-5.0 The [facility] Comment on above: Performed By: #### 4 1000, 70754, 67870, 38467, 43963, 59796 ####[facility]3000 [facility].[address] TACROLIMUSon 06-20-2017 Tacrolimus mass conc (Bld) 4.2 ng/mL Low 5.0-20.0 The [facility] Comment on above: Result Comment: The [employer] Tacrolimus assay is a delayed one-step immunoassayfor the quantitative determination of tacrolimus in human whole bloodusing the chemiluminescent microparticle immunoassay (CMIA) technologywith flexible assay protocols, referred to as Chemiflex. Performed By: #### 4 1000, 32064, 33650, 57801, 92707, 42888 ####[facility]3000 [facility] [place] [address], [facility] URIC ACID BLOODon 06-20-2017 Urate mass conc 4.3 mg/dL Normal 2.3-6.6 The [facility] Comment on above: Performed By: #### 4 1000, 02397, 46264, 81558, 70801, 92420 ####[facility]3000 [facility].[address] BK VIRUS QUANTITATION PCR BL OODon 05-27-2017 BKV QUANT PCR Not detected Normal The [facility] Comment on above: Result Comment: Meth od: BK virus was measured by quantitative polymerase chain reactionusing a TaqMan probe targeting the polyomavirus BK E[employer]ER[employer] SERVICER-1 gene.The lower limit of quantitation of the assay is 500 copies of BK genomeper milliliter of plasma or urine, and any detectable BK DNA below thatlevel is reported as: Detected, <500 copies/ml. Serial BK virusmeasurement can be used to monitor disease activity. (Reference:Kelsie vaughanl. J CLIN MICRO 2004; 42:4653-6963).This test was developed and its performance characteristics determinedby the [facility]. It has not been approvedby the [place] Food and Drug Administration. However, such approval is notrequired for clinical implementation, and test results have been shownto be clinically useful. This laboratory is CAP accredited and CLIAcertified to perform high complexity testing. Performed By: #### 4 1000, 27444, 73880, 06609, 03756, 67068 ####[facility]3000 [facility] [place] [address], [facility] LOG 10 COPIES Not detected Normal The [facility] Comment on above: Performed By: #### 4 1000, 54247, 82491, 47467, 67563, 59211 ####[facility]3000 [facility].[address] CBC W/DIFFon 05-27-2017 ABS BASOPHILS 0.0 10*3/uL Normal 0.0-0.2 The [facility] Comment on above: Performed By: #### 4 1000, 91882, 05604, 76404, 26688, 70382 ####[facility]3000 [facility].[address] ABS IMM GRANS 0.0 10*3/uL Normal 0.0-0.2 The [facility] Comment on above: Performed By: #### 4 1000, 39131, 93427, 01326, 93342, 90501 ####[facility]3000 [facility].[address] ABS NEUTROPHILS 4.8 10*3/uL Normal 1.6-7.6 The [facility] Comment on above: Performed By: #### 4 1000, 60124, 24508, 93657, 47083, 56616 ####[facility]3000 [facility].[address] Basophils Auto #/vol (Bld) 0.0 % Normal 0.0-1.0 The [facility] Comment on above: Performed By: #### 4 1000, 57665, 21238, 50948, 18419, 34853 ####[facility]3000 [facility].[address] Eosinophils Auto #/vol (Bld) 0.1 10*3/uL Normal 0.0-0.5 The [facility] Comment on above: Performed By: #### 4 1000, 23777, 81527, 82896, 06202, 81406 ####[facility]3000 [facility].[address] Eosinophils/100 WBC Auto (Bld) 1.1 % Normal 0.0-6.0 [facility] Comment on above: Performed By: #### 4 1000, 03659, 01362, 85419, 30850, 01768 ####[facility]3000 [facility].[address] Erythrocyte distribution width Auto Ratio (RBC) 13.5 % Normal 11.5-15.0 [facility] Comment on above: Performed By: #### 4 1000, 62474, 66818, 89062, 11912, 95288 ####[facility]3000 [facility].[address] Hematocrit Auto Volume Fraction (Bld) 46.1 % High 36.0-45.0 [facility] Comment on above: Performed By: #### 4 1000, 39751, 26338, 80392, 40183, 75148 ####[facility]3000 [facility].[address] Hemoglobin mass conc (Bld) 15.0 g/dL Normal 12.0-15.0 The [facility] Comment on above: Performed By: #### 4 1000, 72366, 49668, 03430, 00992, 29886 ####[facility]3000 [facility].[address] IMMATURE GRANS 0.3 % Normal 0.0-1.0 The [facility] Comment on above: Performed By: #### 4 1000, 39513, 37245, 17133, 43160, 56633 ####[facility]3000 [facility].[address] Lymphocytes Auto #/vol (Bld) 1.0 10*3/uL Low 1.2-4.0 The [facility] Comment on above: Performed By: #### 4 1000, 06235, 97124, 15856, 54556, 14597 ####[facility] Lymphocytes/100 WBC Auto (Bld) 15.7 % Low 20.0-45.0 The [facility] Comment on above: Performed By: #### 4 1000, 10445, 31527, 72718, 26791, 53728 ####[facility] MCH Auto Entitic mass (RBC) 28.8 pg Normal 27.0-33.0 The [facility] Comment on above: Performed By: #### 4 1000, 42097, 55389, 20919, 70389, 62083 ####[facility] MCHC Auto mass conc (RBC) 32.5 g/dL Normal 32.0-35.0 The [facility] Comment on above: Performed By: #### 4 1000, 12201, 33154, 34502, 43179, 28098 ####[facility] MCV Auto Entitic volume (RBC) 88.7 fL Normal 82.0-98.0 [facility] Comment on above: Performed By: #### 4 1000, 25399, 31348, 08933, 66358, 50486 ####[facility] Monocytes Auto #/vol (Bld) 0.8 10*3/uL Normal 0.1-1.0 [facility] Comment on above: Performed By: #### 4 1000, 56526, 84104, 51859, 02568, 65257 ####[facility] MONOS 11.4 % Normal 5.0-12.0 The [facility] Comment on above: Performed By: #### 4 1000, 20849, 73051, 33126, 29610, 96520 ####[facility] Neutrophils/100 WBC Auto (Bld) 71.5 % Normal 40.0-72.0 [facility] Comment on above: Performed By: #### 4 1000, 08162, 10790, 45706, 94119, 99912 ####[facility]3000 [facility].[address] Nucleated RBC/100 WBC Ratio (Bld) 0 % Normal 0-0 [facility] Comment on above: Performed By: #### 4 1000, 12910, 15254, 41867, 01148, 33302 ####[facility] PLAT CNT 199 10*3/uL Normal 150-400 The [facility] Comment on above: Performed By: #### 4 1000, 08305, 98901, 42609, 48025, 99603 ####[facility]3000 [facility].[address] RBC Auto #/vol (Bld) 5.20 10*6/uL High 3.80-5.00 Th [facility] Comment on above: Performed By: #### 4 1000, 56721, 55107, 49307, 72078, 29993 ####[facility]3000 [facility].[address] WBC Auto #/vol (Bld) 6.6 10*3/uL Normal 4.0-10.6 The [facility] Comment on above: Performed By: #### 4 1000, 52690, 59525, 78005, 49286, 10553 ####[facility]3000 [facility].[address] COMP METABOLIC PANELon 05-27 Albumin mass conc 4.6 g/dL Normal 3.5-5.7 The [facility] Comment on above: Performed By: #### 4 1000, 96935, 58578, 09048, 56506, 47793 ####[facility] ALKALINE PHOSPH 105 IU/L High 34-104 [facility] Comment on above: Performed By: #### 4 1000, 28568, 09693, 34455, 43162, 23253 ####[facility] [place] [address], [facility] ALT enzyme act/vol 20 U/L Normal 7-52 The [facility] Comment on above: Performed By: #### 4 1000, 74831, 13930, 72632, 29604, 62159 ####[facility] [place] [address], [facility] AST enzyme act/vol 23 U/L Normal 13-39 The [facility] Comment on above: Performed By: #### 4 1000, 25088, 13381, 60845, 82611, 78853 ####[facility] [place] [address], [facility] Bilirubin mass conc 0.6 mg/dL Normal 0.3-1.0 The [facility] Comment on above: Performed By: #### 4 1000, 12936, 55343, 99273, 31867, 63867 ####[facility] [place] [address], [facility] Calcium mass conc 9.8 mg/dL Normal 8.6-10.3 The [facility] Comment on above: Performed By: #### 4 1000, 78344, 70078, 32758, 28077, 07935 ####[facility] [place] [address], [place] Chloride molar conc 106 mmol/L Normal 98-107 The [facility] Comment on above: Performed By: #### 4 1000, 46022, 84492, 04874, 30128, 32157 ####[facility] [place] [address], [place] CO2 molar conc 30 mmol/L Normal 21-31 The [facility] Comment on above: Performed By: #### 4 1000, 97839, 60351, 75626, 25615, 03668 ####[facility] [place] [address], [facility] Creatinine mass conc 0.80 mg/dL Normal 0.60-1.20 [facility] Comment on above: Performed By: #### 4 1000, 41178, 21579, 36291, 89613, 25964 ####[facility] [place] [address], [facility] GFR/1.73 sq M predicted among blacks MDRD vol rate/area (S/P/Bld) mL/min/{1.73_m2} Normal >60 The [facility] Comment on above: Performed By: #### 4 1000, 89311, 93149, 92038, 75032, 91297 ####[facility] [place] [address], [facility] GFR/1.73 sq M predicted among non-blacks MDRD vol rate/area (S/P/Bld) mL/min/{1.73_m2} Normal >60 [facility] Comment on above: Performed By: #### 4 1000, 17095, 02900, 53691, 90049, 03162 ####[facility] [place] [address], [facility] Glucose mass conc 90 mg/dL Normal 70-100 [facility] Comment on above: Performed By: #### 4 1000, 38601, 25040, 11390, 24948, 72563 ####[facility]3000 [facility] [place] [address], [facility] Potassium molar conc 4.0 mmol/L Normal 3.5-5.1 [facility] Comment on above: Performed By: #### 4 1000, 94965, 30344, 28337, 26235, 59249 ####[facility] Protein mass conc 6.8 g/dL Normal 6.0-8.3 [facility] [facility] Comment on above: Performed By: #### 4 1000, 88763, 71887, 98364, 65791, 67118 ####[facility] Sodium molar conc 138 mmol/L Normal 136-145 [facility] Comment on above: Performed By: #### 4 1000, 46221, 41415, 97068, 32191, 01219 ####[facility]3000 [facility].[address] Urea nitrogen mass conc 14 mg/dL Normal 7-25 The [facility] Comment on above: Performed By: #### 4 1000, 64659, 23697, 68997, 65368, 61810 ####[facility]3000 [facility].[address] DIRECT BILIon 05-27-2017 Bilirubin.direct mass conc 0.1 mg/dL Normal 0.0-0.2 The [facility] Comment on above: Performed By: #### 4 1000, 67948, 65293, 50964, 14862, 86702 ####[place] [id number] [facility].[address] EVEROLIMUS [id number] 8 EVEROLIMUS 5.6 ng/mL Normal The [facility] Comment on above: Result Comment: [...] the transplantcenter.Test developed and characteristics determined by [employer] [place] - 2. See Compliance Statement B: Really Simple/CSPerformed by [employer],[address] [place] [address] [id number] xrv.[employer], Leonid Antonio MD - Lab. Director HEMOGLOBIN A1Con 05-27-2017 Glucose mass conc 108 mg/dL Normal 70-126 [facility] Comment on above: Performed By: #### 4 1000, 62116, 95369, 57049, 13382, 73529 ####[facility]3000 [facility] [place] [address], [facility] Hemoglobin A1c/Hemoglobin.total mass fraction (Bld) 5.4 % Normal 4.0-6.0 The [facility] Comment on above: Performed By: #### 4 1000, 04132, 45398, 35349, 10994, 71997 ####[facility] [facility] [place] [address], [facility] LIPID PROFILEon 05-27-2017 Cholesterol in HDL mass conc 39 mg/dL Normal 23-92 [facility] Comment on above: Result Comment: Slig ht variation in normal range could be due to gender and/or age.HDL CHOLESTEROL REFERENCE RANGE:20 years and older Cardiovascular Risk> or =60 mg/dL Yayqvnwky13 TO 59 mg/dL Low Risk<40 mg/dL High Risk Performed By: #### 4 1000, 30663, 43365, 17951, 63192, 29191 ####[facility] [place] [address], [place] Cholesterol in LDL mass conc 52 mg/dL Normal 0-130 The [facility] Comment on above: Result Comment: LDL IS A CALCULATIONLDL IS ONLY VALID IF THE TRIG IS LESS THAN 400. Performed By: #### 4 1000, 48375, 34594, 55274, 27458, 23427 ####[facility] [place] [address], [facility] Cholesterol mass conc 117 mg/dL Low 120-200 The [facility] Comment on above: Result Comment: CHOL ESTEROL REFERENCE RANGE:20 YEARS AND OLDER CARDIOVASCULAR RISKLess than 200 mg/dl Low Xnpz253 to 239 mg/dl Borderline Xlnc543 mg/dl and greater High Risk Performed By: #### 4 1000, 18857, 46069, 13626, 13173, 92664 ####[facility] [place] [address], [facility] Cholesterol.total/Cho lesterol in HDL mass ratio 3.0 {ratio} Normal .0-4.5 The [facility] Comment on above: Performed By: #### 4 1000, 00769, 39594, 63169, 13847, 63616 ####[facility] NON-HDL CHOLESTEROL 78 mg/dL Normal The [facility] Comment on above: Performed By: #### 4 1000, 31948, 01786, 82000, 13913, 27390 ####[facility] [place] [address], [facility] Triglyceride mass conc 131 mg/dL Normal 40-149 The [facility] Comment on above: Result Comment: TRIG LYCERIDE REFERENCE RANGE:20 YEARS AND OLDER CARDIOVASCULAR RISKLESS THAN 150 mg/dl LOW [id number] TO 199 mg/dl BORDERLINE WFMT086 mg/dl AND GREATER HIGH RISK Performed By: #### 4 1000, 03372, 48805, 50115, 94583, 16865 ####[facility] [place] [address], [facility] VLDL CHOL 26 mg/dL Normal 0-40 The [facility] Comment on above: Performed By: #### 4 1000, 03813, 55249, 83844, 24344, 57718 ####[facility]3000 [facility].[address] MAGNESIUM BLOODon 05-27-2017 Magnesium mass conc 2.1 mg/dL Normal 1.9-2.7 The [facility] Comment on above: Performed By: #### 4 1000, 90641, 20464, 98156, 24704, 63573 ####[facility]3000 [facility].[address] PHOSPHORUS BLOODon 8 Phosphate mass conc 3.5 mg/dL Normal 2.5-5.0 The [facility] Comment on above: Performed By: #### 4 1000, 13258, 97296, 90326, 21761, 15038 ####[facility]3000 [facility].[address] TACROLIMUSon 05-27-2017 Tacrolimus mass conc (Bld) 4.4 ng/mL Low 5.0-20.0 The [facility] Comment on above: Result Comment: The [employer] Tacrolimus assay is a delayed one-step immunoassayfor the quantitative determination of tacrolimus in human whole bloodusing the chemiluminescent microparticle immunoassay (CMIA) technologywith flexible assay protocols, referred to as Chemiflex. Performed By: #### 4 1000, 05477, 97932, 24169, 16099, 85983 ####[facility]3000 [facility].[address] URIC ACID BLOODon 05-27-2017 Urate mass conc 4.6 mg/dL Normal 2.3-6.6 The [facility] Comment on above: Performed By: #### 4 1000, 05740, 53739, 66160, 75568, 49613 ####[facility]3000 [facility].[address] CBC W/DIFFon 01-30-2018 ABS BASOPHILS 0.0 10*3/uL Normal 0.0-0.2 The [facility] Comment on above: Performed By: #### 4 1000, 62169, 46887, 19186, 58906, 95884 ####[facility] ABS IMM GRANS 0.0 10*3/uL Normal 0.0-0.2 The [facility] Comment on above: Performed By: #### 4 1000, 03248, 88502, 64268, 01699, 60030 ####[facility] ABS NEUTROPHILS 4.6 10*3/uL Normal 1.6-7.6 The [facility] Comment on above: Performed By: #### 4 1000, 52030, 91201, 82298, 03249, 82564 ####[facility] Basophils Auto #/vol (Bld) 0.3 % Normal 0.0-1.0 The [facility] Comment on above: Performed By: #### 4 1000, 87645, 20138, 54510, 49934, 80317 ####[place] [id number] [address] Eosinophils Auto #/vol (Bld) 0.1 10*3/uL Normal 0.0-0.5 The [facility] Comment on above: Performed By: #### 4 1000, 79546, 03470, 07667, 20775, 14982 ####[facility] Eosinophils/100 WBC Auto (Bld) 1.7 % Normal 0.0-6.0 The [facility] Comment on above: Performed By: #### 4 1000, 58724, 59329, 40563, 02118, 05971 ####[facility]3000 [facility].[address] Erythrocyte distribution width Auto Ratio (RBC) 13.7 % Normal 11.5-15.0 The [facility] Comment on above: Performed By: #### 4 1000, 44094, 21863, 41148, 79403, 66285 ####[facility]3000 [facility].[address] Hematocrit Auto Volume Fraction (Bld) 45.0 % Normal 36.0-45.0 The [facility] Comment on above: Performed By: #### 4 1000, 18505, 86560, 99344, 23293, 41846 ####[place] [address] [facility].[address] Hemoglobin mass conc (Bld) 14.9 g/dL Normal 12.0-15.0 The [facility] Comment on above: Performed By: #### 4 1000, 01875, 67606, 60649, 99834, 13142 ####[facility]3000 [facility].[address] IMMATURE GRANS 0.3 % Normal 0.0-1.0 The [facility] Comment on above: Performed By: #### 4 1000, 27049, 70229, 69195, 56864, 36598 ####[place] [address] [facility].[address] Lymphocytes Auto #/vol (Bld) 0.9 10*3/uL Low 1.2-4.0 The [facility] Comment on above: Performed By: #### 4 1000, 13625, 76438, 51987, 08998, 09054 ####[facility]3000 [facility].[address] Lymphocytes/100 WBC Auto (Bld) 14.2 % Low 20.0-45.0 The [facility] Comment on above: Performed By: #### 4 1000, 10281, 64566, 30778, 57705, 77698 ####[facility] MCH Auto Entitic mass (RBC) 29.4 pg Normal 27.0-33.0 The [facility] Comment on above: Performed By: #### 4 1000, 24571, 10955, 72593, 72540, 09691 ####[facility] MCHC Auto mass conc (RBC) 33.1 g/dL Normal 32.0-35.0 The [facility] Comment on above: Performed By: #### 4 1000, 11641, 94081, 89953, 65160, 07182 ####[facility] MCV Auto Entitic volume (RBC) 88.8 fL Normal 82.0-98.0 The [facility] Comment on above: Performed By: #### 4 1000, 11686, 24604, 29886, 68844, 65812 ####[facility]3000 [facility].[address] Monocytes Auto #/vol (Bld) 0.8 10*3/uL Normal 0.1-1.0 The [facility] Comment on above: Performed By: #### 4 1000, 55699, 41818, 53762, 75873, 54329 ####[facility] MONOS 12.2 % High 5.0-12.0 The [facility] Comment on above: Performed By: #### 4 1000, 70068, 11738, 68900, 77281, 90469 ####[facility] Neutrophils/100 WBC Auto (Bld) 71.3 % Normal 40.0-72.0 The [facility] Comment on above: Performed By: #### 4 1000, 27295, 77284, 31394, 47665, 97611 ####[facility]3000 [facility].[address] Nucleated RBC/100 WBC Ratio (Bld) 0 % Normal 0-0 [facility] Comment on above: Performed By: #### 4 1000, 22807, 63548, 76696, 33506, 07563 ####[facility] PLAT CNT 215 10*3/uL Normal 150-400 The [facility] Comment on above: Performed By: #### 4 1000, 68787, 54114, 75381, 73771, 22125 ####[facility]3000 [facility].[address] RBC Auto #/vol (Bld) 5.07 10*6/uL High 3.80-5.00 [facility] Comment on above: Performed By: #### 4 1000, 43129, 67493, 31670, 71170, 21086 ####[facility]3000 [facility].[address] WBC Auto #/vol (Bld) 6.5 10*3/uL Normal 4.0-10.6 [facility] Comment on above: Performed By: #### 4 1000, 95510, 03434, 11702, 48304, 82466 ####[facility]3000 [facility].[address] COMP METABOLIC PANELon 04-29 Albumin mass conc 4.4 g/dL Normal 3.5-5.7 The [facility] Comment on above: Performed By: #### 4 1000, 50491, 58567, 38190, 51958, 19968 ####[facility] ALKALINE PHOSPH 114 IU/L High 34-104 [facility] Comment on above: Performed By: #### 4 1000, 76627, 62569, 67754, 01034, 53075 ####[facility] [place] [address], [place] ALT enzyme act/vol 15 U/L Normal 7-52 The [facility] Comment on above: Performed By: #### 4 1000, 64869, 70216, 25124, 11179, 04201 ####[facility] [place] [address], [place] AST enzyme act/vol 19 U/L Normal 13-39 The [facility] Comment on above: Performed By: #### 4 1000, 49440, 02791, 42104, 23831, 25687 ####[facility] [place] [address], [place] Bilirubin mass conc 0.7 mg/dL Normal 0.3-1.0 The [facility] Comment on above: Performed By: #### 4 1000, 38601, 33442, 87012, 58349, 72473 ####[facility] [place] [address], [place] Calcium mass conc 9.6 mg/dL Normal 8.6-10.3 The [facility] Comment on above: Performed By: #### 4 1000, 20334, 47324, 27210, 19098, 42843 ####[facility] [place] [address], [place] Chloride molar conc 103 mmol/L Normal 98-107 The [facility] Comment on above: Performed By: #### 4 1000, 60131, 10353, 90731, 45737, 97206 ####[facility] [place] [address], [place] CO2 molar conc 29 mmol/L Normal 21-31 The [facility] Comment on above: Performed By: #### 4 1000, 76871, 95843, 93447, 36414, 47767 ####[facility] [place] [address], [facility] Creatinine mass conc 0.79 mg/dL Normal 0.60-1.20 [facility] Comment on above: Performed By: #### 4 1000, 63269, 30241, 62030, 54109, 83426 ####[facility] [place] [address], [facility] GFR/1.73 sq M predicted among blacks MDRD vol rate/area (S/P/Bld) mL/min/{1.73_m2} Normal >60 The [facility] Comment on above: Performed By: #### 4 1000, 46732, 17902, 05838, 92243, 24840 ####[facility] [place] [address], [facility] GFR/1.73 sq M predicted among non-blacks MDRD vol rate/area (S/P/Bld) mL/min/{1.73_m2} Normal >60 The [facility] Comment on above: Performed By: #### 4 1000, 56984, 14208, 90958, 31666, 14219 ####[facility] [place] [address], [facility] Glucose mass conc 90 mg/dL Normal 70-100 [facility] Comment on above: Performed By: #### 4 1000, 98428, 25900, 53281, 21650, 13715 ####[facility] [place] [address], [facility] Potassium molar conc 3.8 mmol/L Normal 3.5-5.1 [facility] Comment on above: Performed By: #### 4 1000, 34912, 42935, 28628, 93688, 90071 ####[facility] [place] [address], [place] Protein mass conc 7.2 g/dL Normal 6.0-8.3 The [facility] Comment on above: Performed By: #### 4 1000, 02268, 04400, 11600, 85639, 11004 ####[facility] Sodium molar conc 140 mmol/L Normal 136-145 [facility] Comment on above: Performed By: #### 4 1000, 52554, 84853, 36662, 25114, 89238 ####[facility] Urea nitrogen mass conc 15 mg/dL Normal 7-25 The [facility] Comment on above: Performed By: #### 4 1000, 09235, 62985, 54737, 91406, 14377 ####[facility] DIRECT BILIon 04-29-2017 Bilirubin.direct mass conc 0.1 mg/dL Normal 0.0-0.2 The [facility] Comment on above: Order Comment: Liver Battery conflicts with Comprehensive Metabolic Panel. Liver Battery canceled and Direct Bilirubin added. Performed By: #### 4 1000, 66207, 95386, 39998, 78738, 39734 ####[facility] EVEROLIMUS [id number] 8 EVEROLIMUS 5.4 ng/mL Normal The [facility] Comment on above: Result Comment: [...] the transplantcenter.Test developed and characteristics determined by [employer] [place] - 2. See Compliance Statement B: Really Simple/CSPerformed by [employer],[address] [place] [address] tec.[employer], eLonid Antonio MD - Lab. Director LIPID PROFILEon 04-29-2017 Cholesterol in HDL mass conc 49 mg/dL Normal 23-92 The [facility] Comment on above: Result Comment: Slig ht variation in normal range could be due to gender and/or age.HDL CHOLESTEROL REFERENCE RANGE:20 years and older Cardiovascular Risk> or =60 mg/dL Behfmtfgd94 TO 59 mg/dL Low Risk<40 mg/dL High Risk Performed By: #### 4 1000, 52340, 52337, 73565, 48880, 77519 ####[facility] Cholesterol in LDL mass conc 52 mg/dL Normal 0-130 The [facility] Comment on above: Result Comment: LDL IS A CALCULATIONLDL IS ONLY VALID IF THE TRIG IS LESS THAN 400. Performed By: #### 4 1000, 63761, 80561, 36077, 12075, 15185 ####[facility]3000 [facility] [place] [address], [facility] Cholesterol mass conc 122 mg/dL Normal 120-200 The [facility] Comment on above: Result Comment: CHOL ESTEROL REFERENCE RANGE:20 YEARS AND OLDER CARDIOVASCULAR RISKLess than 200 mg/dl Low Zosc971 to 239 mg/dl Borderline Jysi508 mg/dl and greater High Risk Performed By: #### 4 1000, 15880, 63104, 04257, 36437, 44273 ####[facility] [place] [address], [facility] Cholesterol.total/Cho lesterol in HDL mass ratio 2.5 {ratio} Normal .0-4.5 The [facility] Comment on above: Performed By: #### 4 1000, 68420, 67898, 12699, 01707, 07819 ####[facility], [place] [address] [place] [address] NON-HDL CHOLESTEROL 73 mg/dL Normal The [facility] Comment on above: Performed By: #### 4 1000, 80222, 80652, 81401, 53607, 52108 ####[facility] Triglyceride mass conc 106 mg/dL Normal 40-149 The [facility] Comment on above: Result Comment: TRIG LYCERIDE REFERENCE RANGE:20 YEARS AND OLDER CARDIOVASCULAR RISKLESS THAN 150 mg/dl LOW SDUD189 TO 199 mg/dl BORDERLINE [id number] mg/dl AND GREATER HIGH RISK Performed By: #### 4 1000, 44260, 50604, 03524, 66897, 02291 ####[facility] VLDL CHOL 21 mg/dL Normal 0-40 The [facility] Comment on above: Performed By: #### 4 1000, 77673, 21963, 48908, 63002, 91491 ####[facility] [place] [address], [facility] MAGNESIUM BLOODon 04-29-2017 Magnesium mass conc 2.1 mg/dL Normal 1.9-2.7 The [facility] Comment on above: Performed By: #### 4 1000, 87772, 35823, 47843, 58422, 41809 ####[facility] [place] [address], [facility] PHOSPHORUS BLOODon 8 Phosphate mass conc 3.3 mg/dL Normal 2.5-5.0 The [facility] Comment on above: Performed By: #### 4 1000, 71363, 81492, 70864, 65689, 41757 ####[facility] TACROLIMUSon 04-29-2017 Tacrolimus mass conc (Bld) 4.6 ng/mL Low 5.0-20.0 The [facility] Comment on above: Result Comment: The [employer] Tacrolimus assay is a delayed one-step immunoassayfor the quantitative determination of tacrolimus in human whole bloodusing the chemiluminescent microparticle immunoassay (CMIA) technologywith flexible assay protocols, referred to as Chemiflex. Performed By: #### 4 1000, 92049, 77715, 21076, 43790, 12778 ####[facility]3000 [facility].[address] URIC ACID BLOODon 04-29-2017 Urate mass conc 4.6 mg/dL Normal 2.3-6.6 [facility] Comment on above: Performed By: #### 4 1000, 03111, 55684, 43281, 80797, 25804 ####[facility]3000 [facility].[address] CBC W/DIFFon 03-27-2017 Basophils Auto #/vol (Bld) 0.2 % Normal 0.0-2.0 The [facility] Comment on above: Performed By: #### 4 1000, 46167, 12928, 31534, 01722, 10274 ####[facility]3000 [facility].[address] Eosinophils/100 WBC Auto (Bld) 1.8 % Normal 0.0-5.0 The [facility] Comment on above: Performed By: #### 4 1000, 23792, 38206, 24891, 40955, 95212 ####[facility]3000 [place] [place] [address], [place] Erythrocyte distribution width Auto Ratio (RBC) 13.6 % Normal 11.5-16.9 The [facility] Comment on above: Performed By: #### 4 1000, 44586, 64504, 68827, 79266, 22531 ####[facility] Hematocrit Auto Volume Fraction (Bld) 47.6 % Normal 36.0-48.0 The [facility] Comment on above: Performed By: #### 4 1000, 94852, 94002, 01086, 89325, 34515 ####[facility] Hemoglobin mass conc (Bld) 15.8 g/dL High 12.0-15.0 The [facility] Comment on above: Performed By: #### 4 1000, 84941, 86178, 78907, 46920, 63302 ####[facility] Lymphocytes/100 WBC Auto (Bld) 14.5 % Low 20.0-40.0 The [facility] Comment on above: Performed By: #### 4 1000, 92599, 64464, 92472, 86075, 41625 ####[facility] MCH Auto Entitic mass (RBC) 29.0 pg Normal 24.0-32.0 The [facility] Comment on above: Performed By: #### 4 1000, 12368, 48855, 04603, 51511, 36477 ####[facility] [place] [address], [facility] MCHC Auto mass conc (RBC) 33.3 g/dL Normal 32.0-36.0 The [facility] Comment on above: Performed By: #### 4 1000, 37592, 86810, 87940, 98963, 08676 ####[facility] MCV Auto Entitic volume (RBC) 87.4 fL Normal 80.0-100.0 [facility] Comment on above: Performed By: #### 4 1000, 54384, 23017, 67499, 77414, 29876 ####[facility] METHOD Normal RBC Morphology Normal The [facility] Comment on above: Performed By: #### 4 1000, 98258, 19901, 87613, 71077, 87020 ####[facility] MONOS 9.6 % High 2-8 The [facility] Comment on above: Performed By: #### 4 1000, 44938, 12468, 44522, 13391, 92616 ####[facility] Neutrophils/100 WBC Auto (Bld) 73.9 % High 50-70 The [facility] Comment on above: Performed By: #### 4 1000, 95218, 73952, 08578, 62160, 51859 ####[facility] PLAT CNT 228 Thou/mm3 Normal 100-400 The [facility] Comment on above: Performed By: #### 4 1000, 98904, 95470, 96519, 62869, 23346 ####[facility] RBC Auto #/vol (Bld) 5.45 mill/mm3 Normal 3.50-5.50 T he [facility] Comment on above: Performed By: #### 4 1000, 49911, 14247, 18082, 11558, 14492 ####[facility] WBC Auto #/vol (Bld) 6.5 Thou/mm3 Normal 4.0-10.0 Th e [facility] Comment on above: Performed By: #### 4 1000, 33286, 36871, 76644, 10371, 11924 ####[facility] COMP METABOLIC PANELon 03-27 Albumin mass conc 4.7 g/dL Normal 3.5-5.7 The [facility] Comment on above: Performed By: #### 4 1000, 38958, 46884, 16045, 51982, 24632 ####[facility] [place] [address], [facility] ALKALINE PHOSPH 99 IU/L Normal 34-104 [facility] Comment on above: Performed By: #### 4 1000, 41278, 92384, 76101, 80352, 02965 ####[facility] ALT enzyme act/vol 19 U/L Normal 7-52 [facility] Comment on above: Performed By: #### 4 1000, 22802, 89517, 27535, 99630, 36742 ####[facility] AST enzyme act/vol 21 U/L Normal 13-39 [facility] Comment on above: Performed By: #### 4 1000, 46388, 25192, 41063, 83149, 34900 ####[facility] [place] [address], [facility] Bilirubin mass conc 0.6 mg/dL Normal 0.3-1.0 [facility] Comment on above: Performed By: #### 4 1000, 97037, 25851, 66684, 35609, 70782 ####[facility] [place] [address], [facility] Calcium mass conc 10.2 mg/dL Normal 8.6-10.3 The [facility] Comment on above: Performed By: #### 4 1000, 03292, 76105, 34630, 49688, 89979 ####[facility] [place] [address], [place] Chloride molar conc 104 mmol/L Normal 98-107 The [facility] Comment on above: Performed By: #### 4 1000, 36511, 00521, 75170, 33733, 80360 ####[facility] [place] [address], [place] CO2 molar conc 28 mmol/L Normal 21-31 The [facility] Comment on above: Performed By: #### 4 1000, 34923, 17736, 21562, 19187, 02009 ####[facility] [place] [address], [place] Creatinine mass conc 0.78 mg/dL Normal 0.60-1.20 The [facility] Comment on above: Performed By: #### 4 1000, 66929, 55941, 84716, 25987, 62036 ####[facility] [place] [address], [place] GFR/1.73 sq M predicted among blacks MDRD vol rate/area (S/P/Bld) mL/min/{1.73_m2} Normal >60 [facility] Comment on above: Performed By: #### 4 1000, 26074, 60456, 75737, 02053, 68222 ####[facility] [place] [address], [place] GFR/1.73 sq M predicted among non-blacks MDRD vol rate/area (S/P/Bld) mL/min/{1.73_m2} Normal >60 [facility] Comment on above: Performed By: #### 4 1000, 18795, 45607, 29319, 09819, 83809 ####[facility] [place] [address], [facility] Glucose mass conc 87 mg/dL Normal 70-100 The [facility] Comment on above: Performed By: #### 4 1000, 99499, 29375, 61879, 28399, 25140 ####[facility] [place] [address], [facility] Potassium molar conc 4.1 mmol/L Normal 3.5-5.1 The [facility] Comment on above: Performed By: #### 4 1000, 19977, 92690, 44242, 53403, 29308 ####[facility] [place] [address], [facility] Protein mass conc 7.8 g/dL Normal 6.0-8.3 The [facility] Comment on above: Performed By: #### 4 1000, 86828, 01639, 57422, 76856, 44878 ####[facility] [place] [address], [facility] Sodium molar conc 139 mmol/L Normal 136-145 The [facility] Comment on above: Performed By: #### 4 1000, 79181, 92899, 55573, 10511, 49224 ####[facility] [place] [address], [facility] Urea nitrogen mass conc 19 mg/dL Normal 7-25 The [facility] Comment on above: Performed By: #### 4 1000, 19555, 98194, 03732, 79687, 83705 ####[facility] [place] [address], [facility] DIRECT BILIon 03-27-2017 Bilirubin.direct mass conc 0.1 mg/dL Normal 0.0-0.2 The [facility] Comment on above: Performed By: #### 4 1000, 66987, 07243, 82193, 71872, 03742 ####[facility] [place] [address], [facility] EVEROLIMUS [id number] 7 EVEROLIMUS 5.3 ng/mL Normal [facility] Comment on above: Result Comment: Ther [...] the transplantcenter.Test developed and characteristics determined by [employer]. See Compliance Statement B: Really Simple/CSPerformed by [employer],[address] [place] [id number] edx.[employer], Leonid Antonio MD - Lab. Director LIPID PROFILEon 03-27-2017 Cholesterol in HDL mass conc 50 mg/dL Normal 23-92 [facility] Comment on above: Result Comment: Slig ht variation in normal range could be due to gender and/or age.HDL CHOLESTEROL REFERENCE RANGE:20 years and older Cardiovascular Risk> or =60 mg/dL Kjgpywqne16 TO 59 mg/dL Low Risk<40 mg/dL High Risk Performed By: #### 4 1000, 72686, 45422, 12359, 38091, 89503 ####[facility] [address], [facility] Cholesterol in LDL mass conc 66 mg/dL Normal 0-130 [facility] Comment on above: Result Comment: LDL IS A CALCULATIONLDL IS ONLY VALID IF THE TRIG IS LESS THAN 400. Performed By: #### 4 1000, 77428, 96812, 32419, 69682, 97747 ####[facility] [place] [address], [facility] Cholesterol mass conc 147 mg/dL Normal 120-200 The [facility] Comment on above: Result Comment: CHOL ESTEROL REFERENCE RANGE:20 YEARS AND OLDER CARDIOVASCULAR RISKLess than 200 mg/dl Low Sgpg732 to 239 mg/dl Borderline Elxx159 mg/dl and greater High Risk Performed By: #### 4 1000, 28855, 57606, 51914, 41125, 49923 ####[facility] [place] [address], [facility] Cholesterol.total/Cho lesterol in HDL mass ratio 2.9 {ratio} Normal .0-4.5 [facility] Comment on above: Performed By: #### 4 1000, 58358, 61928, 25478, 73469, 58549 ####[facility] [place] [address], [facility] NON-HDL CHOLESTEROL 97 mg/dL Normal The [facility] Comment on above: Performed By: #### 4 1000, 60696, 52450, 34434, 91363, 59528 ####[facility] [place] [address], [facility] Triglyceride mass conc 157 mg/dL High 40-149 The [facility] Comment on above: Result Comment: TRIG LYCERIDE REFERENCE RANGE:20 YEARS AND OLDER CARDIOVASCULAR RISKLESS THAN 150 mg/dl LOW [id number] TO 199 mg/dl BORDERLINE [id number] mg/dl AND GREATER HIGH RISK Performed By: #### 4 1000, 29464, 75014, 04588, 38766, 23925 ####[facility] [place] [address], [facility] VLDL CHOL 31 mg/dL Normal 0-40 The [facility] Comment on above: Performed By: #### 4 1000, 16389, 60426, 31944, 84205, 45289 ####[facility] [facility].[address] MAGNESIUM BLOODon 03-27-2017 Magnesium mass conc 1.9 mg/dL Normal 1.9-2.7 The [facility] Comment on above: Performed By: #### 4 1000, 84863, 93538, 24832, 62730, 00951 ####[facility] [facility] [place] [address], [facility] PHOSPHORUS BLOODon 7 Phosphate mass conc 3.4 mg/dL Normal 2.5-5.0 The [facility] Comment on above: Performed By: #### 4 1000, 82439, 22338, 01652, 74556, 57717 ####[facility] [facility].[address] TACROLIMUSon 03-27-2017 Tacrolimus mass conc (Bld) 3.7 ng/mL Low 5.0-20.0 The [facility] Comment on above: Result Comment: The [employer] Tacrolimus assay is a delayed one-step immunoassayfor the quantitative determination of tacrolimus in human whole bloodusing the chemiluminescent microparticle immunoassay (CMIA) technologywith flexible assay protocols, referred to as Chemiflex. Performed By: #### 4 1000, 54309, 07134, 13823, 69065, 53041 ####[facility] [facility].[address] URIC ACID BLOODon 03-27-2017 Urate mass conc 4.1 mg/dL Normal 2.3-6.6 [facility] Comment on above: Performed By: #### 4 1000, 79896, 67438, 21183, 13304, 49513 ####[facility] [facility].[address] BK VIRUS QUANTITATION PCR BL OODon 02-26-2017 BKV QUANT PCR Not detected Normal [facility] Comment on above: Result Comment: Meth od: BK virus was measured by quantitative polymerase chain reactionusing a TaqMan probe targeting the polyomavirus BK ELECTRIC REFRIGERATOR SERVICER-1 gene.The lower limit of quantitation of the assay is 500 copies of BK genomeper milliliter of plasma or urine, and any detectable BK DNA below thatlevel is reported as: Detected, <500 copies/ml. Serial BK virusmeasurement can be used to monitor disease activity. (Reference:Kelsie vaughanl. J CLIN MICRO 2004; 42:0907-2145).This test was developed and its performance characteristics determinedby the [facility]. It has not been approvedby the US Food and Drug Administration. However, such approval is notrequired for clinical implementation, and test results have been shownto be clinically useful. This laboratory is CAP accredited and CLIAcertified to perform high complexity testing. Performed By: #### 4 1000, 61450, 88155, 86128, 36232, 30466 ####[address] LOG 10 COPIES Not detected Normal [facility] Comment on above: Performed By: #### 4 1000, 48324, 24861, 24217, 43357, 53694 ####[address] CBC W/DIFFon 02-26-2017 Basophils Auto #/vol (Bld) 0.3 % Normal 0.0-2.0 The [facility] Comment on above: Performed By: #### 5 0103 ####[place] [id number] [address] Eosinophils/100 WBC Auto (Bld) 2.2 % Normal 0.0-5.0 The [facility] Comment on above: Performed By: #### 5 0103 ####[address] Erythrocyte distribution width Auto Ratio (RBC) 13.8 % Normal 11.5-16.9 The [facility] Comment on above: Performed By: #### 5 3 ####[facility] [facility].[address] Hematocrit Auto Volume Fraction (Bld) 44.9 % Normal 36.0-48.0 The [facility] Comment on above: Performed By: #### 3 ####[facility] [facility].[address] Hemoglobin mass conc (Bld) 15.0 g/dL Normal 12.0-15.0 The [facility] Comment on above: Performed By: #### 3 ####[facility] [place] [address], [facility] Lymphocytes/100 WBC Auto (Bld) 18.9 % Low 20.0-40.0 The [facility] Comment on above: Performed By: #### 3 ####[facility] [facility].[address] MCH Auto Entitic mass (RBC) 28.9 pg Normal 24.0-32.0 The [facility] Comment on above: Performed By: #### 5 3 ####[facility] [facility].[address] MCHC Auto mass conc (RBC) 33.4 g/dL Normal 32.0-36.0 The [facility] Comment on above: Performed By: #### 5 3 ####[facility] [place] [address], [facility] MCV Auto Entitic volume (RBC) 86.6 fL Normal 80.0-100.0 The [facility] Comment on above: Performed By: #### 5 3 ####[facility] [facility] [place] [address], [facility] METHOD Normal RBC Morphology Normal The [facility] Comment on above: Performed By: #### 5 3 ####[facility] [place] [address], [facility] MONOS 11.7 % High 2-8 The [facility] Comment on above: Performed By: #### 5 0103 ####[facility] [place] [address], [facility] Neutrophils/100 WBC Auto (Bld) 66.9 % Normal 50-70 The [facility] Comment on above: Performed By: #### 5 0103 ####[facility] [place] [address], [facility] PLAT CNT 230 Thou/mm3 Normal 100-400 The [facility] Comment on above: Performed By: #### 5 0103 ####[facility] [facility] [place] [address], [facility] RBC Auto #/vol (Bld) 5.18 mill/mm3 Normal 3.50-5.50 T he [facility] Comment on above: Performed By: #### 5 0103 ####[facility] [facility] [place] [address], [facility] WBC Auto #/vol (Bld) 5.8 Thou/mm3 Normal 4.0-10.0 Th e [facility] Comment on above: Performed By: #### 5 0103 ####[facility] [facility].[address] COMP METABOLIC PANELon 02-26 Albumin mass conc 4.7 g/dL Normal 3.5-5.7 The [facility] Comment on above: Performed By: #### 4 1000, 13088, 45881, 19512, 69428, 22467 ####[facility] [place] [address], [facility] ALKALINE PHOSPH 115 IU/L High 34-104 [facility] Comment on above: Performed By: #### 4 1000, 04392, 52101, 47287, 39301, 50211 ####[facility] [place] [address], [place] ALT enzyme act/vol 18 U/L Normal 7-52 [facility] Comment on above: Performed By: #### 4 1000, 03371, 75980, 54619, 78000, 12525 ####[facility] [place] [address], [place] AST enzyme act/vol 22 U/L Normal 13-39 [facility] Comment on above: Performed By: #### 4 1000, 07318, 64018, 02584, 83224, 14477 ####[facility] [place] [address], [place] Bilirubin mass conc 0.6 mg/dL Normal 0.3-1.0 The [facility] Comment on above: Performed By: #### 4 1000, 02530, 76067, 11980, 10122, 60762 ####[facility] [place] [address], [place] Calcium mass conc 9.8 mg/dL Normal 8.6-10.3 The [facility] Comment on above: Performed By: #### 4 1000, 10445, 95957, 96368, 55725, 62165 ####[facility] [place] [address], [place] Chloride molar conc 103 mmol/L Normal 98-107 The [facility] Comment on above: Performed By: #### 4 1000, 67083, 82929, 43248, 03116, 66234 ####[facility] [place] [address], [place] CO2 molar conc 29 mmol/L Normal 21-31 The [facility] Comment on above: Performed By: #### 4 1000, 32915, 63696, 14073, 33942, 01939 ####[facility] [place] [address], [facility] Creatinine mass conc 0.78 mg/dL Normal 0.60-1.20 The [facility] Comment on above: Performed By: #### 4 1000, 71652, 34765, 15511, 16470, 74096 ####[facility] [place] [address], [place] GFR/1.73 sq M predicted among blacks MDRD vol rate/area (S/P/Bld) mL/min/{1.73_m2} Normal >60 [facility] Comment on above: Performed By: #### 4 1000, 71575, 69409, 27567, 97891, 07607 ####[facility] [place] [address], [facility] GFR/1.73 sq M predicted among non-blacks MDRD vol rate/area (S/P/Bld) mL/min/{1.73_m2} Normal >60 [facility] Comment on above: Performed By: #### 4 1000, 51616, 27469, 91147, 69535, 70116 ####[facility] [place] [address], [facility] Glucose mass conc 94 mg/dL Normal 70-100 The [facility] Comment on above: Performed By: #### 4 1000, 23574, 00161, 19006, 06690, 10205 ####[facility] [place] [address], [place] Potassium molar conc 3.8 mmol/L Normal 3.5-5.1 The [facility] Comment on above: Performed By: #### 4 1000, 28060, 12613, 76606, 57603, 11975 ####[facility] [place] [address], [place] Protein mass conc 7.4 g/dL Normal 6.0-8.3 The [facility] Comment on above: Performed By: #### 4 1000, 02115, 14795, 52395, 32291, 69839 ####[facility] Sodium molar conc 136 mmol/L Normal 136-145 [facility] Comment on above: Performed By: #### 4 1000, 94654, 35198, 96875, 44810, 39662 ####[facility] Urea nitrogen mass conc 19 mg/dL Normal 7-25 The [facility] Comment on above: Performed By: #### 4 1000, 30683, 56622, 40307, 75998, 33905 ####[facility] DIRECT BILIon 02-26-2017 Bilirubin.direct mass conc 0.1 mg/dL Normal 0.0-0.2 The [facility] Comment on above: Performed By: #### 4 1000, 23926, 41985, 48326, 68341, 18062 ####[facility] EVEROLIMUS [id number] 7 EVEROLIMUS 5.9 ng/mL Normal The [facility] Comment on above: Result Comment: [...] the transplantcenter.Test developed and characteristics determined by [employer]. See Compliance Statement B: Really Simple/CSPerformed by [employer],[address] [place] [address] [id number] guf.[employer], Leonid Antonio MD - Lab. Director HEMOGLOBIN A1Con 02-26-2017 Glucose mass conc 108 mg/dL Normal 70-126 [facility] Comment on above: Performed By: #### 4 6447, 39628 ####[facility] Hemoglobin A1c/Hemoglobin.total mass fraction (Bld) 5.4 % Normal 4.0-6.0 The [facility] Comment on above: Performed By: #### 4 6447, 39207 ####[facility] [facility].[address] LIPID PROFILEon 02-26-2017 Cholesterol in HDL mass conc 54 mg/dL Normal 23-92 [facility] Comment on above: Result Comment: Slig ht variation in normal range could be due to gender and/or age.HDL CHOLESTEROL REFERENCE RANGE:20 years and older Cardiovascular Risk> or =60 mg/dL Grdktrjcw56 TO 59 mg/dL Low Risk<40 mg/dL High Risk Performed By: #### 4 1000, 81494, 72570, 02225, 15585, 72190 ####[facility] [facility] [address], [facility] Cholesterol in LDL mass conc 70 mg/dL Normal 0-130 [facility] Comment on above: Result Comment: LDL IS A CALCULATIONLDL IS ONLY VALID IF THE TRIG IS LESS THAN 400. Performed By: #### 4 1000, 28901, 54590, 01259, 77740, 47038 ####[facility] [place] [address], [facility] Cholesterol mass conc 144 mg/dL Normal 120-200 The [facility] Comment on above: Result Comment: CHOL ESTEROL REFERENCE RANGE:20 YEARS AND OLDER CARDIOVASCULAR RISKLess than 200 mg/dl Low Nofi293 to 239 mg/dl Borderline Cxhm547 mg/dl and greater High Risk Performed By: #### 4 1000, 51585, 62625, 10264, 73670, 94798 ####[facility] [place] [address], [facility] Cholesterol.total/Cho lesterol in HDL mass ratio 2.7 {ratio} Normal .0-4.5 [facility] Comment on above: Performed By: #### 4 1000, 39172, 85448, 82938, 99180, 25454 ####[facility] NON-HDL CHOLESTEROL 90 mg/dL Normal The [facility] Comment on above: Performed By: #### 4 1000, 43440, 04260, 54751, 31720, 98164 ####[facility] [facility] [place] [address], [facility] Triglyceride mass conc 101 mg/dL Normal 40-149 The [facility] Comment on above: Result Comment: TRIG LYCERIDE REFERENCE RANGE:20 YEARS AND OLDER CARDIOVASCULAR RISKLESS THAN 150 mg/dl LOW [id number] TO 199 mg/dl BORDERLINE [id number] mg/dl AND GREATER HIGH RISK Performed By: #### 4 1000, 17488, 41473, 08031, 77327, 09825 ####[facility] [place] [address], [facility] VLDL CHOL 20 mg/dL Normal 0-40 The [facility] Comment on above: Performed By: #### 4 1000, 33320, 95850, 38193, 36615, 50094 ####[facility] [place] [address], [facility] MAGNESIUM BLOODon 11-29-2017 Magnesium mass conc 1.9 mg/dL Normal 1.9-2.7 The [facility] Comment on above: Performed By: #### 4 1000, 36921, 47634, 84343, 53631, 69435 ####[facility] PHOSPHORUS BLOODon 7 Phosphate mass conc 4.1 mg/dL Normal 2.5-5.0 The [facility] Comment on above: Performed By: #### 4 1000, 97113, 49208, 92906, 13991, 23118 ####[facility] TACROLIMUSon 02-26-2017 Tacrolimus mass conc (Bld) 4.2 ng/mL Low 5.0-20.0 The [facility] Comment on above: Result Comment: The [employer] Tacrolimus assay is a delayed one-step immunoassayfor the quantitative determination of tacrolimus in human whole bloodusing the chemiluminescent microparticle immunoassay (CMIA) technologywith flexible assay protocols, referred to as Chemiflex. Performed By: #### 4 6447, 98391 ####[facility] URIC ACID BLOODon 02-26-2017 Urate mass conc 4.3 mg/dL Normal 2.3-6.6 [facility] Comment on above: Performed By: #### 4 1000, 41848, 47773, 73704, 64678, 18444 ####[facility] Vital Signs Date Time Vital Sign Value Performing Clinician Facility 08-30-2023 09:040 Body height 182.88 cm [facility] 08-30-2023 09:0400 Body mass index (BMI) [Ratio] 17.9 kg/m2 [facility] 08-30-2023 09: Body temperature 99.8 [degF] [facility] 08-30-2023 09:22-0400 Body weight 59.87 kg [facility] 08-30-2023 09:22-0400 Diastolic blood pressure 73 mm[Hg] [facility] 08-30-2023 09:22-0400 Heart rate 67 /min [facility] 08-30-2023 09:22-0400 SaO2% (BldA) [Mass fraction] 95 % [facility] 08-30-2023 09:22-0400 Systolic blood pressure 111 mm[Hg] [facility] 03-27-2023 11:30-0500 Body height 152.4 cm Cathy Bella Other [facility] Other 03-27-2023 11:30-0500 Body mass index (BMI) [Ratio] 25.39 kg/m2 Cathy Bella Other [facility] Other 03-27-2023 11:30-0500 Body temperature 97.5 [degF] Cathy Bella Other [facility] Other 03-27-2023 11:30-0500 Body weight 58.97 kg Cathy Bella Other [facility] Other 03-27-2023 11:30-0500 Respiratory rate 18 /min Cathy Bella Other [facility] Other 03-27-2023 11:30-0500 SaO2% (BldA) [Mass fraction] 96 % Cathy Bella Other [facility] Other 09-21-2022 09:00-0400 Body height 152.4 cm Martha Guevara Other [facility] Other 09-21-2022 09:00-0400 Body mass index (BMI) [Ratio] 22.46 kg/m2 Martha Guevara Other [facility] Other 09-21-2022 09:00-0400 Body temperature 97.6 [degF] Martha Guevara Other [facility] Other 09-21-2022 09:00-0400 Body weight 52.16 kg Martha Guevara Other [facility] Other 09-21-2022 09:00-0400 Diastolic blood pressure 70 mm[Hg] Martha Guevara Other [facility] Other 09-21-2022 09:00-0400 Respiratory rate 18 /min Martha Guevara Other [facility] Other 09-21-2022 09:00-0400 SaO2% (BldA) [Mass fraction] 96 % Martha Guevara Other [facility] Other 09-21-2022 09:00-0400 Systolic blood pressure 107 mm[Hg] Martha Guevara Other [facility] Other 01-12-2022 13:55-0400 Body height 152.4 cm Cathy Bella Other [facility] Other 01-12-2022 13:55-0400 Body mass index (BMI) [Ratio] 19.53 kg/m2 Cathy Bella Other [facility] Other 01-12-2022 13:55-0400 Body temperature 96.9 [degF] Cathy Bella Other [facility] Other 01-12-2022 13:55-0400 Body weight 45.36 kg Cathy Bella Other [facility] Other 01-12-2022 13:55-0400 Respiratory rate 18 /min Cathy Bella Other [facility] Other 01-12-2022 13:55-0400 SaO2% (BldA) [Mass fraction] 97 % Cathy Bella Other [facility] Other 12-28-2021 10:20-0400 Body height 152.4 cm Martha Guevara Other [facility] Other 12-28-2021 10:20-0400 Body mass index (BMI) [Ratio] 21.48 kg/m2 Martha Paola Other [facility] Other 12-28-2021 10:20-0400 Body temperature 98 [degF] Martha Smithmond Other [facility] Other 12-28-2021 10:20-0400 Body weight 49.9 kg Martha Smithmond Other [facility] Other 12-28-2021 10:20-0400 Respiratory rate 18 /min Martha Smithmond Other [facility] Other 12-28-2021 10:20-0400 SaO2% (BldA) [Mass fraction] 97 % Martha Paola Other [facility] Other 12-25-2021 10:05-0400 Body height 152.4 cm Cathy Bella Other [facility] Other 12-25-2021 10:05-0400 Body mass index (BMI) [Ratio] 21.48 kg/m2 Cathy Bella Other [facility] Other 12-25-2021 10:05-0400 Body temperature 96 [degF] Cathy Bella Other [facility] Other 12-25-2021 10:05-0400 Body weight 49.9 kg Cathy Bella Other [facility] Other 12-25-2021 10:05-0400 Respiratory rate 18 /min Cathy Bella Other [facility] Other 12-25-2021 10:05-0400 SaO2% (BldA) [Mass fraction] 97 % Cathy Bella Other [facility] Other 10-27-2021 12:35-0400 Body height 152.4 cm Cathy Bella Other [facility] Other 10-27-2021 12:35-0400 Body mass index (BMI) [Ratio] 22.85 kg/m2 Cathy Bella Other [facility] Other 10-27-2021 12:35-0400 Body weight 53.07 kg Cathy Bella Other [facility] Other 10-27-2021 12:35-0400 Diastolic blood pressure 87 mm[Hg] Cathy Bella Other [facility] Other 10-27-2021 12:35-0400 SaO2% (BldA) [Mass fraction] 98 % Cathy Bella Other [facility] Other 10-27-2021 12:35-0400 Systolic blood pressure 130 mm[Hg] Cathy Bella Other [facility] Other 08-14-2021 10:40-0400 Body height 152.4 cm Martha Guevara Other [facility] Other 08-14-2021 10:40-0400 Body mass index (BMI) [Ratio] 22.46 kg/m2 Martha Guevara Other [facility] Other 08-14-2021 10:40-0400 Body temperature 96.7 [degF] Martha Guevara Other [facility] Other 08-14-2021 10:40-0400 Body weight 52.16 kg Martha Guevara Other [facility] Other 08-14-2021 10:40-0400 Diastolic blood pressure 68 mm[Hg] Martha Guevara Other [facility] Other 08-14-2021 10:40-0400 Respiratory rate 20 /min Martha Guevara Other [facility] Other 08-14-2021 10:40-0400 SaO2% (BldA) [Mass fraction] 98 % Martha Guevara Other [facility] Other 08-14-2021 10:40-0400 Systolic blood pressure 144 mm[Hg] Martha Paola Other [facility] Other Encounters Encounter Date Encounter Type Care Provider Facility Start: 09-23-2023 End: 09-23-2023 ambulatory VIRGIL HAYNES [facility] Start: 09-02-2023 End: 09-02-2023 ambulatory ESTER Townsend HEMMER Not Available Start: 08-30-2023 End: 08-30-2023 ambulatory [facility] Work Phone: Start: 08-30-2023 End: 08-30-2023 Patient encounter procedure [facility] Work Phone: Start: 04-02-2023 End: 04-02-2023 ambulatory RAMON CARROLL Not Available Start: 03-27-2023 End: 03-27-2023 ambulatory Cathy Bella Other [facility] Other Start: 03-27-2023 Office outpatient visit 25 minutes Cathy Bella [facility] Start: 03-17-2023 End: 03-17-2023 ambulatory VIRGIL [facility] Start: 03-06-2023 End: 03-06-2023 ambulatory ESTER Townsend HEMMER Not Available Start: 02-12-2023 End: 02-12-2023 ambulatory ESTER Townsend HEMMER Not Available Start: 09-21-2022 End: 09-21-2022 ambulatory Martha Guevara Other [facility] Other Start: 09-21-2022 Office outpatient visit 15 [...] 01-12-2022 End: 01-12-2022 ambulatory Cathy Bella Other [facility] Other Start: 01-12-2022 Office outpatient visit 15 minutes Cathy Bella [facility] Start: 01-07-2022 End: 01-07-2022 ambulatory ISATU GUAMAN . Facility:[facility] Start: 01-03-2022 End: 01-04-[address] VIRGIL SWIFT Facility:[facility] Start: 12-28-2021 End: 12-28-2021 ambulatory Martha Guevara Other [facility] Other Start: 12-28-2021 Office outpatient visit 15 minutes Marthajd Guevara [facility] Start: 12-25-2021 End: 12-25-2021 ambulatory Cathy Bella Other [facility] Other Start: 12-25-2021 Office outpatient visit 25 minutes Cathy Bella [facility] Start: 12-05-2021 End: 12-06-2021 ambulatory DOCTOR MISC Facility:[facility] Start: 11-07-2021 End: 11-08-2021 ambulatory DOCTOR MISC Facility:[facility] Start: 10-27-2021 End: 10-27-2021 ambulatory Cathy Bella Other [facility] Other Start: 10-27-2021 Office outpatient visit 15 minutes Cathy Bella [facility] Start: 10-15-2021 End: 10-16-[address] DOCTOR MISC Facility:[facility] Start: 10-08-2021 End: 10-09-[address] DOCTOR MISC Facility:[facility] Start: 09-10-2021 End: 09-11-[address] DOCTOR MISC Facility:[facility] Start: 08-14-2021 End: 08-14-2021 ambulatory Martha Guevara Other [facility] Other Start: 08-14-2021 Office outpatient visit 15 minutes Martha Guevara [facility] Start: 12-31-2017 End: 01-01-2018 Patient encounter VIRGIL HAYNES Facility:[facility] Start: 12-25-2017 End: 12-26-2017 Patient encounter ROSALINDA ROSENBAUM Facility:[facility] Start: 10-30-2017 End: 10-31-2017 Patient encounter ROSALINDA ROSENBAUM Facility:[facility] Start: 10-23-2017 End: 10-24-2017 Patient encounter ROSALINDA ROSENBAUM Facility:[facility] Start: 09-25-2017 End: 09-26-2017 Patient encounter ROSALINDAMAGDALENO ROSENBAUM Facility:[facility] Start: 08-26-2017 End: 08-27-2017 Patient encounter ROSALINDAMAGDALENO ROSENBAUM Facility:[facility] Start: 07-23-2017 End: 07-24-2017 Patient encounter ROSALINDA ROSENBAUM Facility:[facility] Start: 06-20-2017 End: 06-21-2017 Patient encounter ROSALINDA ROSENBAUM Facility:[facility] Start: 05-27-2017 End: 05-28-2017 Patient encounter ROSALINDA ROSENBAUM Facility:[facility] Start: 04-29-2017 End: 04-30-2017 Patient encounter ROSALINDA ROSENBAUM Facility:[facility] Start: 03-27-2017 End: 03-28-2017 Patient encounter ROSALINDA ROSENBAUM Facility:[facility] Start: 02-26-2017 End: 02-27-2017 Patient encounter DOE BRIDGES Facility:[facility] Procedures Date Procedure Procedure Detail Performing Clinician Start: 08-30-2023 Quick Strep (POC) Start: 08-14-2021 Piperacillin/tazobactam Martha Guevara Other Immunizations Immunization Date Immunization Notes Care Provider Heri fatima 03-16-2009 influenza virus vaccine, split virus (incl. purified surface antigen) Martha Guevara Other [facility] Other 03-16-2009 influenza virus vaccine, unspecified formulation [facility] Payers Date Payer Category Payer [facility] [id number] 1959 Self-pay 1959 Unknown [id number] 1955 Unknown [id number] 2.16.8 40.1.339935.3.579.2.647 1955 Unknown [id number] 2.16.8 40.1.095038.3.579.2.647 1955 Unknown [id number] 2.16.8 40.1.567895.3.579.2.647 1956 Unknown [id number] 2.16.8 40.1.072046.3.579.2.647 1956 Unknown [id number] 2.16.8 40.1.832727.3.579.2.647 1956 Unknown [id number] 2.16.8 40.1.358564.3.579.2.647 1956 Unknown [id number] 2.16.8 40.1.017713.3.579.2.647 1956 Unknown [id number] 2.16.8 40.1.179806.3.579.2.647 1956 Unknown [id number] 2.16.8 40.1.921610.3.579.2.647 1956 Unknown [id number] 2.16.8 40.1.801786.3.579.2.647 1956 Unknown [id number] 2.16.8 40.1.561668.3.579.2.647 1956 Unknown [id number] 2.16.8 40.1.283364.3.579.2.647 1956 Unknown [id number] 2.16.84 0.1.873493.3.579.2.593 1956 Unknown [id number] 2.16.84 0.1.752866.3.579.2.593 1956 Unknown [id number] 2.16.84 0.1.113132.3.579.2.593 1956 Unknown [id number] 2.16.84 0.1.518093.3.579.2.593 1956 Unknown [id number] 2.16.84 0.1.440766.3.579.2.593 1956 Unknown [id number] 2.16.84 0.1.585203.3.579.2.593 1956 Unknown [id number] 2.16.84 0.1.482202.3.579.2.593 1956 Unknown [id number] 2.16.84 0.1.022172.3.579.2.593 1956 Unknown [id number] 2.16.84 0.1.753775.3.579.2.593 1956 Unknown [id number] 2.16.84 0.1.052325.3.579.2.593 1956 Unknown [id number] 2.16.84 0.1.547101.3.579.2.593 1956 Unknown [id number] 2.16.84 0.1.074623.3.579.2.593 1955 Unknown [id number] 2.16.84 0.1.086459.3.579.2.593 1956 Unknown [id number] 2.16.84 0.1.347898.3.579.2.593 1956 Unknown [id number] 2.16.84 0.1.352724.3.579.2.593 1956 Unknown [id number] 2.16.84 0.1.892482.3.579.2.1259 1956 Unknown [id number] 2.16.840 .1.841353.3.579.2.1259 1956 Unknown [id number] 2.16.840 .1.257620.3.579.2.1259 1956 Unknown [id number] 2.16.840 .1.266033.3.579.2.1259 Unknown [id number] 2.16.84 0.1.018773.3.579.2.593 Unknown Amy BC/BS [id number] Social History Date Type Detail Facility Unknown if ever smoked [facility] Other Sex Assigned At Sex Assigned At Bir th [facility] Other Start: 08-30-2023 Tobacco smoking status NHIS Never smoked tobacco (finding) [facility] Start: 1955 Sex Assigned At Female F [facility] Clinical Notes 11-10-2007 to 12-18-2023 Note Date & Type Note Facility 12-18-2023 Note Will review by phone today with Dr. Negro Vivas tac level 3.9 for 2 consecutive months and if any dose changes, will notify this pt and amend this note. Most recent IR tacrolimus dosing on record is 0.5mg BID [facility] 12-09-2023 Note Prior auth for Mycop henolate was submitted via [facility] Approved- scanned into media Keycode: [id number] [facility] 11-26-2023 Note Prior auth submitted via [facility] Case: [id number], Status: Approved, Coverage Starts on: 08/27/2023 12:00:00 AM, Coverage Ends on: 11/25/2024 12:00:00 AM Keycode: [id number] [facility] 09-23-2023 Note 09/23/23 Chief Complaint Patient presents with Kidney Follow-up Pt has been having sores in her mouth for the past month. PCP: Ramon Carroll MD Txp Referring: Preferred Pharmacy: [facility] - [place], [place] - [address] [facility] [address] [id number] [facility] [address] [facility] [address] [facility] [place], [place] - [address] [facility] [address] Subjective Visit Vitals BP 139/74 (BP Location: Left arm, Patient Position: Sitting, BP Cuff Size: Adult) Pulse 59 Temp 36.3 ???C (97.3 ???F) (Oral) Resp 18 Ht 1.524 m (5') Wt 58.5 kg (129 lb) SpO2 99% BMI 25.19 kg/m??? OB Status Postmenopausal Smoking Status Never BSA 1.57 m??? No Known Allergies Medication Documentation Review Audit Reviewed by Ester Welsh MA (Forms Analysis Manager) on 09/23/23 at 0859 Medication Order Taking? Sig Documenting Provider Last Dose Status amLODIPine (Norvasc) 5 mg tablet [id number] Yes TAKE 1 TABLET BY MOUTH EVERY DAY Virgil Haynes NP Taking Active amoxicillin (Amoxil) 500 mg capsule [id number] No 1 capsule every 8 (eight) hours. Historical ProviderMD Not Taking Active atorvastatin (Lipitor) 20 mg tablet [id number] Yes TAKE 1 TABLET BY MOUTH EVERY DAY AT BEDTIME Virgil Haynes NP Taking Active baclofen (Lioresal) 10 mg tablet [id number] No Historical ProviderMD Not Taking Active cyanocobalamin (Vitamin B-12) 500 mcg tablet [id number] Yes in the morning. Historical ProviderMD Taking Active magnesium oxide (Mag-Ox) 400 mg (241.3 mg magnesium) tablet [id number] Yes Take 400 mg by mouth in the morning. Historical ProviderMD Taking Active mycophenolate (Myfortic) 180 mg EC tablet [id number] Yes TAKE 4 TABLETS BY MOUTH IN THE MORNING AND AT BEDTIME Patient taking differently: Take 540 mg by mouth in the morning and at bedtime. Doe Bridges MD Taking Active omega-3 fatty acids-fish oil (Fish OiL Extra Strength) 435-880 mg capsule [id number] Yes 1 capsule 1 (one) time each day at the same time. Historical ProviderMD Taking Active PARoxetine (Paxil) 10 mg tablet [id number] Yes Take 10 mg by mouth in the morning. Historical Provider, Taking Active potassium gluconate 595 mg (99 mg) tablet [id number] Yes every 12 (twelve) hours. Historical Provider, Taking Active spironolactone (Aldactone) 25 mg tablet [id number] Yes TAKE 1 TABLET BY MOUTH EVERY DAY Virgil Haynes NP Taking Active tacrolimus (Prograf) 0.5 mg capsule [id number] Yes TAKE ONE CAPSULE BY MOUTH EVERY MORNING AND 1 CAPSULE EVERY NIGHT AT BEDTIME Anthony Kunz MD Taking Active Immunization History Administered Date(s) Administered Neofonie Sars-Cov-2 Vaccination 06/07/2020 There is no problem [...] Continue meds and MONTHLY Labs with New [facility] standing Order given today. Follow up 6 months or sooner if needed. See Derm See PCP as scheduled: Dr Carroll. Magic Mouthwash script provided. Chart Review today: 03.17.23 Pt presents visit with . Pt states labs done Last week in [facility] and [place] calling for results. Pt seeing Derm in [place] for lesion: forearm and other lesions. Hx: melanoma PCP: local Dr Khoury (more content not included)... [facility] 03-27-2023 Evaluation note Encounter Date Diagnosis Assessment Notes Feb, Contact with and (suspected) exposure to covid-19 (ICD-10 - Z20.822) Feb, Viral URI (ICD-10 - J06.9) Advised patient that COVID/Influenza A/B/RSV test and rapid Strep test was negative today. Advised patient that will treat as viral URI. Supportive care as directed, increase fluids and rest, Tylenol as directed, rx of [place], cool mist humidifier, throat lozenges. Discussed infection [...] condition. Feb, Sore throat (ICD-10 - J02.9) [facility] Other 12-18-2023 Note03/17/23 Chief Complaint Patient presents with Kidney Follow-up Patient would like to know if Virgil would prescribe depression medication. PCP: Ramon Carroll MD Txp Referring: Preferred Pharmacy: [facility] - [place], [place] - [address] [facility] [address] [id number] [place] [place] [facility] [address] [address] [facility] [address] [facility] [address] [facility] - [place], [place] - [address] [facility] [address] Subjective Visit Vitals BP 142/80 (BP Location: Right arm, Patient Position: Sitting) Pulse 63 Temp 36.3 ???C (97.4 ???F) (Oral) Ht 1.524 m (5') Wt 60.6 kg (133 lb 9.6 oz) BMI 26.09 kg/m??? Smoking Status Never BSA 1.6 m??? No Known Allergies Medication Documentation Review Audit Reviewed by Flakita Lagos MA (Forms Analysis Manager) on 03/17/23 at 0956 Medication Order Taking? Sig Documenting Provider Last Dose Status amLODIPine (Norvasc) 5 mg tablet [id number] Yes TAKE 1 TABLET BY MOUTH EVERY DAY Virgil Haynes NP Taking Active amoxicillin (Amoxil) 500 mg capsule [id number] No 1 capsule every 8 (eight) hours. Yasmin Mancia MD Not Taking Active atorvastatin (Lipitor) 20 mg tablet [id number] Yes TAKE 1 TABLET BY MOUTH EVERY DAY AT BEDTIME Virgil Haynes NP Taking Active baclofen (Lioresal) 10 mg tablet [id number] Yes Yasmin Mancia MD Taking Active cyanocobalamin (Vitamin B-12) 500 mcg tablet [id number] No in the morning. Yasmin Mancia MD Not Taking Active magnesium oxide (Mag-Ox) 400 mg (241.3 mg magnesium) tablet [id number] Yes Take 400 mg by mouth in the morning. Yasmin Mancia MD Taking Active mycophenolate (Myfortic) 180 mg EC tablet [id number] Yes TAKE 4 TABLETS BY MOUTH IN THE MORNING AND AT BEDTIME Doe Bridges MD Taking Active omega-3 fatty acids-fish oil (Fish OiL Extra Strength) 435-880 mg capsule [id number] No 1 capsule 1 (one) time each day at the same time. Yasmin Mancia MD Not Taking Active PARoxetine (Paxil) 10 mg tablet [id number] Yes Take 10 mg by mouth in the morning. Yasmin Mancia MD Taking Active potassium gluconate 595 mg (99 mg) tablet [id number] No every 12 (twelve) hours. Yasmin Mancia MD Not Taking Active spironolactone (Aldactone) 25 mg tablet [id number] Yes TAKE 1 TABLET BY MOUTH EVERY DAY Virgil Hayens NP Taking Active tacrolimus (Prograf) 0.5 mg capsule [id number] Yes TAKE ONE CAPSULE BY MOUTH EVERY [...] Pt states labs done Last week in [facility] and [place] calling for results. Pt seeing Derm in [place] for lesion: forearm and other lesions. Hx: [...] Hgb. Pt AGAIN instructed to use our [facility] Transplant standing order for her monthly labs. Pt reports B/P stable at home Discussed hydration PLan of Care: Continue meds and MONTHLY Labs with [facility] standing Order. Follow up 6 [...] ; Creat 0.9 ; (more content not included)...[facility]10-18-2023 Note Reviewed Ext Tac 3.6 over the phone with Dr. Vivas, per phone order no changes at this time.[facility]10-15-2022 Evaluation note* Encounter Date Diagnosis Assessment [...] understanding and is agreeable with treatment plan [facility] Other 09-30-2022 Evaluation note* Encounter Date Diagnosis [...] no improvement in 2 to 3 days. [facility] Other 09-27-2022 Evaluation note* Encounter Date Diagnosis [...] treatment plan. 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 Medical History hypertension Medical History kidney transplant Surgical History resection of superior cervical mass 11/10/07 Surgical History Teeth extraction in preparation for renal transplant Surgical History portacath placement Surgical History kidney transplant 2013 Hospitalization History see above [facility] Other Evaluation [employer] Other Evaluation note* Diagnosis Onset Date Resolution Status Thrush, oral acute Sore [facility] Work Phone: History general [facility] Other Summary Purpose Family History No Family [...] and content) DATE CREATED AUTHOR 01/30/2018 [facility] DATE CREATED AUTHOR AUTHOR'S ORGANIZ ATION 08/17/2021 [facility] DATE CREATED AUTHOR AUTHOR'S ORGANIZ ATION 08/13/2022 [facility] DATE CREATED AUTHOR AUTHOR'S ORGANIZ ATION 09/03/2023 [facility] dical [facility] DATE CREATED AUTHOR AUTHOR'S ORGANIZ ATION 12/20/2023 [facility] REASON FOR VISIT (unrecogniz ed section and content) DYSURIADYSURIADYSURIAPOSS RA SH ON BACK, ITCHINGDODGE JOURNEY, SORE THROAT, COUGHBLACK DODGE JOURNT SORE THROATIN CAR, MOUTH SORES, CALL [phone] THROAT, COUGHING, DRAINAGE Care Teams (unrecognized sec [...] BE BASED ON THE PRIMARY CLINICAL RECORDS. [employer] provides no warranty or guarantee of the accuracy or completeness of information in this document.
[2024-01-14 07:14] LABS: Basophils Percent Auto 0.1 % (0.2-2.0); Eosinophils Absolute Auto 0.2 10^3/uL (0.0-0.7); Eosinophils Percent Auto 2.5 % (0.9-7.0); Hematocrit 43.8 % (36.0-48.0); Immature Granulocytes Abs Auto 0.02 10^3/uL (0.00-0.03); Immature Granulocytes Pct Auto 0.3 % (0.0-0.5); Lymphocytes Absolute Auto 1.4 10^3/uL (1.2-3.8); Lymphocytes Percent Auto 18.7 % (20.5-60.0); Mean Corpuscular Hemoglobin 30.3 pg (26.7-34.0); Mean Corpuscular Volume 94.8 fL (81.0-99.0); Mean Platelet Volume 11.2 fL (9.5-13.5); Monocytes Absolute Auto 0.8 10^3/uL (0.3-0.8); Monocytes Percent Auto 11.1 % (1.7-12.0); Neutrophils Absolute Auto 4.9 10^3/uL (1.4-6.5); Neutrophils Percent Auto 67.3 % (43.0-75.0); Platelet Count 219 10^3/uL (150-450); Red Blood Count 4.62 10^6/uL (4.20-5.40); Red Cell Distribution Width 14.6 % (11.0-15.0); White Blood Count 7.3 10^3/uL (4.0-11.0)
[2024-01-14 08:19] LABS: Alanine Aminotransferase 15 U/L (14-59); Albumin Globulin Ratio 1.1; Albumin Level 3.4 g/dL (3.4-5.0); Alkaline Phosphatase 137 U/L (46-116); Anion Gap 15.6; Aspartate Amino Transferase 13 U/L (15-37); BUN Creatinine Ratio 15.2; Bilirubin Direct 0.1 mg/dL (0.0-0.2); Bilirubin Total 0.6 mg/dL (0.2-1.0); Calcium 9.1 mg/dL (8.5-10.1); Carbon Dioxide 25.3 mmol/L (21.0-32.0); Chloride 107 mmol/L (98-107); Chol HDL Ratio 2.3; Cholesterol 109 mg/dL (<=200); Estimated GFR (African America >60 (>=60 mL/min/1.73m^2); Estimated GFR (Non-African Ame >60 (>=60 mL/min/1.73m^2); Glucose 94 mg/dL (74-106); HDL Cholesterol 48 mg/dL (40-60); LDL Cholesterol Calculated 46.6 mg/dL; Magnesium 1.8 mg/dL (1.8-2.4); Potassium 3.9 mmol/L (3.5-5.1); Sodium 144 mmol/L (136-145); Total Protein 6.4 g/dL (6.4-8.2); Triglycerides 72 mg/dL (<=150); Uric Acid 4.8 mg/dL (2.6-6.0); VLDL CHOLESTEROL 14.4 mg/dL
[2024-01-14 08:54] LABS: Estimated Average Glucose 111 mg/dL; Glycohemoglobin A1C 5.5 % (4.5-6.2)
[2024-01-16 13:10] LABS: BKV DNA, Quant PCR, Plasma Negative (Negative)
[2024-01-16 20:11] LABS: Tacrolimus (FK506), Blood 4.2 ng/mL (2.0-20.0)
== END 2024-01-14 06:41 | disposition home or self-care (01) ==
LOC: LAB 06:40
PROVIDERS: PCP Internal Medicine
DX: E13.9 Other specified diabetes mellitus without complications (principal); Z94.0 Kidney transplant status
CPT/HCPCS: 36415; 80053; 80061; 80197; 82248; 83036; 83735; 84550; 85025; 87799

== ENCOUNTER 2024-02-11 07:14 | Outpatient (OUT) | payer MEDICARE, SELFPAY ==
--- NOTE | 2024-02-11 | MM_ITS ---
Patient Name: NIKO GRIMM MR#: [id number] : 1955 Exam Date: 02/11/2024 Ordering Doctor: DR MEHNAZ GUSMAN M.D. RADIOLOGY REPORT PROCEDURE: MM TOMOSYNTHESIS SCREENING BI COMPARISON: MG MAMM SCREEN 3D [place] CAD, 04/02/2021. MG MAMM SCREEN 3D [place] CAD, 07/23/2022. INDICATIONS: Screening for malignant neoplasm Calculator Name NCI Breast Cancer Risk Assessment Tool 5 Year Breast Cancer Risk 1.90% Lifetime Breast Cancer Risk 6.40% Personal Breast Cancer No Personal Ovarian Cancer No Treatments None Family Cancers None LOCATION: [facility] BREAST COMPOSITION: The breasts are extremely dense, which lowers the sensitivity of mammography. FINDINGS: DIAGNOSTIC CATEGORY 1--NEGATIVE. NO CHANGE FROM COMPARISON ASSESSMENT. Scattered benign-appearing calcifications are present. Scattered benign-appearing lymph nodes are present. RIGHT BREAST: No significant suspicious finding. LEFT BREAST: No significant suspicious finding. RECOMMENDATIONS: ROUTINE MAMMOGRAM AND CLINICAL EVALUATION IN 12 MONTHS. PLEASE NOTE: A NORMAL MAMMOGRAM DOES NOT EXCLUDE THE POSSIBILITY OF BREAST CANCER. A CLINICALLY SUSPICIOUS PALPABLE LUMP SHOULD BE BIOPSIED. Dictated by: Glenroy Bass MD on 02/11/2024 at 09:07 Approved by: Glenroy Bass MD on 02/11/2024 at 09:08
--- OUTSIDE RECORDS SUMMARY | 2024-02-11 07:17 | XMS_ITS | CCD ---
Author Organization [facility] Care Team Providers Care Imaging Analyst Name Role Phone NORTHWAY, DINKAR Unavailable Unavailable NORTHWAY, DINKAR Unavailable Unavailable CARROLL, RAMON Unavailable Unavailable [...] RAMON Unavailable Unavailable ZEYNEPENVIRGIL MCGOWAN Unavailable Unavailable VIRGIL HAYNES Unavailable Unavailable ZEYNEPENBERSona VIRGIL Unavailable Unavailable CARROLL, [...] Care Unavailable CARROLL, DR DARBY Consulting Unavailable CARRLOL, DR DARBY Attending Unavailable ZIEBER, DR ARTEMIO Garcia Consulting Unavailable CARROLL, DR DARBY Primary Care Unavailable MISC, DR OBRIEN Consulting Unavailable MISC, DR OBRIEN Attending Unavailable MISC, DR OBRIEN Admitting Unavailable NORTHWAY, DR CONNORS Consulting Unavailable CARROLL, DR DARBY Primary Care Unavailable MISC, DR OBRIEN Attending Unavailable MISC, DR OBRIEN Admitting Unavailable MISC, DR OBRIEN Attending Unavailable MISC, DR OBRIEN Admitting Unavailable MISC, DR OBRIEN Consulting Unavailable CARROLL, DR DARBY Primary Care Unavailable NORTHWAY, DR CONNORS Consulting Unavailable NORTHWAY, DR CONNORS Attending Unavailable CARROLL, DR DARBY Primary Care Unavailable NORTHWAY, DR CONNORS Admitting Unavailable NORTHWAY, DR CONNORS Attending Unavailable CARROLL, DR DARBY Primary Care Unavailable NORTHWAY, DR CONNORS Admitting Unavailable NORTHWAY, DR CONNORS Consulting Unavailable MISC, DR OBRIEN Attending Unavailable MISC, DR OBRIEN Admitting Unavailable CARROLL, DR DARBY Primary Care Unavailable MISC, DR OBRIEN Consulting Unavailable MISC, DR OBRIEN Consulting Unavailable MISC, DR OBRIEN Attending Unavailable MISC, DR OBRIEN Admitting Unavailable CARROLL, DR DARBY Primary Care Unavailable MISC, DOCTOR Attending Unavailable MISC, DOCTOR Admitting Unavailable MISC, DOCTOR Consulting Unavailable CARROLL, DR DARBY Primary Care Unavailable MISC, DOCTOR Attending Unavailable MISC, DR OBRIEN Admitting Unavailable MISC, DR OBRIEN Consulting Unavailable CARROLL, DR DARBY Primary Care Unavailable NORTHWAY, DR CONNORS Consulting Unavailable NORTHWAY, DR CONNORS Attending Unavailable CARROLL, DR DARBY Primary Care Unavailable NORTHWAY, DR CONNORS Admitting Unavailable MISC, DOCTOR Attending Unavailable MISC, DR OBRIEN Admitting Unavailable MISC, DR OBRIEN Consulting Unavailable CARROLL, DR DARBY Primary Care Unavailable MISC, DOCTOR Attending Unavailable MISC, DR OBRIEN Admitting Unavailable MISC, DR OBRIEN Consulting Unavailable CARROLL, DR DARBY Primary Care Unavailable NORTHWAY, DR CONNORS Consulting Unavailable NORTHWAY, DR CONNORS Attending Unavailable NORTHWAY, DR CONNORS Admitting Unavailable DR RAMON CARROLL Primary Care Unavailable RAMON CARROLL Attending Unavailable ESTER PADILLA Attending Unavailable ESTER PADILLA Attending Unavailable ESTER PADILLA Attending Unavailable VIRGIL HAYNES Attending Unavailable VIRGIL HAYNES Attending Unavailable Ramon Carroll MD Unavailable Ramon Carroll MD Primary Care Provider [phone] Medications Current Medications Medication Drug Class(es) Dates Sig (Normalized) Sig (Original) [id number] 200 actuat albuterol 0.09 mg/actuat metered dose inhaler (1 source) beta2-Adrenergic Agonist Start: 12-28-2021 take 2 puff(s) by inhalation four times daily as needed Albuterol Sulfate HFA 108 (90 Base) MCG/ACT 2 puffs Inhalation 4 times a day prn 30 Nov, 2021 Active amLODIPine 5 mg oral tablet (11 sources) Dihydropyridine Calcium Channel Eleonora Start: 11-26-2022 take 5 mg by mouth once daily Amlodipine Active 5 MG PO Daily August 30, 2023 12:00am amLODIPine Besyl ate Active atorvastatin 20 mg oral tablet (2 sources) HMG-CoA Reductase Inhibitor Start: 08-30-2023 take 20 mg by mouth once daily at bedtime Atorvastatin Active 20 MG PO Daily at bedtime August 30, 2023 12:00am baclofen 10 mg oral tablet (1 source) gamma-Aminobutyr ic Acid-ergic Agonist Start: 03-06-2023 take 1 tablet by mouth twice daily as needed for muscle spasms baclofen (Lioresal) 10 MG tablet Indications: Trapezius muscle spasm Take 1 tablet (10 mg) by mouth 2 (two) times a day as needed for muscle spasms 60 tablet 5 03/06/2023 Active Calcium (8 sources) Phosphate Binder, Calcium [...] 1.5 mg/ml oral solution (1 source) Uncompetitive U-nxhzof-B-asparta te Receptor Antagonist, Sigma-1 Agonist Start: 03-27-2023 take 10 mL by mouth every eight hours [place] DM 7.5-7.5 MG/5ML 10 mL Orally every 8 hours for 5 days Feb, Active ergocalciferol 1.25 mg oral capsule (9 sources) Provitamin D2 Compound Start: 06-27-2011 take 1 capsule by mouth every week Vitamin D (Ergocalciferol) 81539 UNIT 1 capsule Orally Once a Week for 90 days May, Active Start: 06-27-2011 everolimus (6 sources) Kinase Inhibitor, mTOR Inhibitor Immunosuppressant Zortress Active ferrous fumarate 325 mg oral tablet (2 sources) Start: Ferrous Fumarate 325 (106 Fe) MG tablet Daily 08/30/2023 Active ferrous sulfate 325 mg oral tablet (9 sources) take 1 tablet by mouth every twenty-four hours Ferrous Sulfate 325 (65 Fe) MG 1 tablet Orally Once a day for 30 day(s) Active take 1 tablet by mouth once joselito y Ferrous Sulfate 325 (65 Fe) MG 1 tablet Orally Once a day for 30 day(s) Active Fish Oils (10 sources) omega-3 (fish oi l) 435 MG capsule 1 capsule 1 (one) time each day at the same time. Active take 1 capsule by mouth once onofre ly Fish Oil 1000 MG 1 capsule Orally Once a day Active Magnesium (1 source) Start: 08-30-2023 take 200 mg by mouth once daily Magnesium Active 200 MG PO Daily August 30, 2023 12:00am magnesium oxide 400 mg oral capsule (10 sources) magnesium oxide 400 MG capsule Take by mouth every 12 (twelve) hours. Active Magnesium Oxide Active methylPREDNISolone 4 mg oral [...] Active MG PO August 30, 2023 12:00am mycophenolic acid 180 mg delayed release oral tablet (1 source) Antimetabolite Immunosuppressant Start: 01-27-2023 take 3 tablets by mouth in the morning mycophenolate (Myfortic) 180 MG EC tablet Take 3 tablets by mouth in the morning and 3 tablets before bedtime. 01/27/2023 Active nystatin 211402 unt/ml oral suspension (2 sources) Polyene Antifungal Start: 09-02-2023 take 5 mL by mouth four times daily nystatin (Mycostatin) 720912 UNIT/ML suspension Indications: Thrush, oral SWISH AND SWALLOW 5 MLS ORALLY 4 TIMES A DAY FOR 10 DAYS 60 mL 1 09/02/2023 Active Start: 08-30-2023 take 1 mL by mouth f our times daily Nystatin Active 5 ML PO Four times daily 200 10 August 30, 2023 12:00am swish and swallow [place] 3-Xtc-Drr-Fish Oil (Fish Oil) 1,000 mg (120 mg-180 mg) capsule (1 source) Start: 08-30-2023 take 1 capsule by mouth once daily [place] 0-Xut-Rsp-Fish Oil (Fish Oil) 1,000 mg (120 mg-180 mg) capsule Active 1 CAP PO Daily August 30, 2023 12:00am PARoxetine hydrochloride 20 mg oral tablet (2 sources) Serotonin Reuptake Inhibitor Start: 08-30-2023 Paroxetine Hcl Active MG PO August 30, 2023 12:00am Start: 03-06-2023 take 1 tablet by tremaine th in the morning PARoxetine (Paxil) 20 MG tablet Indications: Current moderate episode of major depressive disorder without prior episode (HCC) (CMS/HCC) Take 1 tablet (20 mg) by mouth in the morning. 90 tablet 3 03/06/2023 Active phenazopyridine hydrochloride 200 mg oral tablet (3 sources) Start: 08-14-2021 take 1 tablet by mouth every eight hours Pyridium 200 MG 1 tablet after meals Orally Three times a day for 2 day(s) July, Active Potassium (10 sources) Potassium 99 MG tablet 1 (one) time each day at the same time. Active take 1 tablet by mouth once joselito y Potassium 610 MG 1 tablet Orally Once a day Active potassium gluconate 2.5 meq oral tablet (1 source) Start: 08-30-2023 take 600 mg by mouth once daily Potassium Gluconate Active 600 MG PO Daily August 30, 2023 12:00am spironolactone 25 mg oral tablet (11 sources) Aldosterone Antagonist Start: 08-30-2023 take 25 mg by mouth once daily Spironolactone Active 25 MG PO Daily August 30, 2023 12:00am Spironolactone A ctive tacrolimus 0.5 mg oral capsule (11 sources) Calcineurin Inhibitor Immunosuppressant Start: 01-24-2023 take 0.5 mg by mouth twice daily [...] day for 30 day(s) Active vitamin B12 (4 sources) Vitamin B12 Start: 08-30-2023 take 1 tablet by mouth once daily Cyanocobalamin (Vitamin B-12) Active 1 TAB PO Daily August 30, 2023 12:00am FreeTextSi tablet Orally Once a day; Note: Source Status: Taking; Provider: Shayne Morgan ( ) take 1 tablet by mouth in the mo rning cyanocobalamin (Vitamin B-12) 100 MCG tablet Take 100 mcg by mouth in the morning. Active take 1 tablet by tremaine th every twenty-four hours Vitamin B-12 500 MCG 1 tablet Orally Onc e a day for 30 day(s) Active take [...] Start: 12-25-2021 take 1 capsule by mo [facility] every eight hours Tessalon [...] Problem Date Documented Date Episodic/Chronic Anxiety disorders (4 sources) Mixed anxiety and depressive disorder; Translations: [Depression with anxiety] Onset: 3 03-06-2023 Chronic Chronic kidney disease (16 sources) Anemia in chronic kidney disease; Translations: [Anemia in Chronic Kidney Disease] Onset: 2 Chronic Chronic obstructive pulmonary disease and bronchiectasis (2 sources) Bronchitis, not specified as acute or chronic Episodic Diabetes mellitus without complication (2 sources) Other specified diabetes mellitus without complications; Translations: [Other specified diabetes mellitus without complications] Onset: 4 Chronic Disorders of lipid metabolism (3 sources) Hyperlipidemia, unspecified; Translations: [Hypercholesterolemia] Onset: 2 08-30-2023 Chronic Essential hypertension (6 sources) Hypertensive disorder; Translations: [HTN] Onset: 2 08-30-2023 Chronic Fluid and electrolyte disorders (3 sources) Hyperosmolality and or hypernatremia; Translations: [Hyperosmolality and/or hypernatremia] Episodic Genitourinary congenital anomalies (5 sources) Multiple congenital cysts of kidney; Translations: [Polycystic kidney, unspecified type] Onset: 4 08-30-2023 Chronic Immunizations and screening for infectious disease (6 sources) Contact with and (suspected) exposure to other viral communicable diseases; Translations: [Contact with and (suspected) exposure to other viral communicable diseases] Episodic Menopausal disorders (1 source) Decreased estrogen level; 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-2023 Chronic Mood disorders (1 source) Moderate major depression, single episode; Translations: [Major depressive disorder, single episode, moderate] Onset: 3 03-06-2023 Chronic Other acquired deformities (1 source) Contracture of joint of foot; Translations: [Contracture, unspecified foot] Onset: 3 01-29-2023 Chronic Other aftercare (8 sources) Encounter for aftercare [...] (3 sources) Hyperphosphatemia; Translations: [Hyperphosphatemia] Chronic Other upper respiratory disease (1 source) Dysphonia [...] Classification Problem Date Documented Da te Episodic/Chronic Diseases of mouth; excluding dental (2 sources) Other lesions of oral mucosa; Translations: [Parotitis] Onset: 01-29-2023 Resolved: 01-30-2023 Episodic Genitourinary symptoms and ill-defined conditions (10 sources) Hematuria, unspecified; Translations: [Dysuria] Onset: 12-31-2017 Resolved: 08-14-2021 Episodic Mood disorders (1 source) Mood disorders Onset: 01-30-2023 01-30-2023 Mycoses (3 sources) Candidiasis of mouth; Translations: [Candidal stomatitis] Onset: 09-02-2023 08-30-2023 Episodic Other aftercare (1 source) Encounter for therapeutic drug level monitoring; Translations: [ENCOUNTER FOR THERAPEUTIC DRUG LEVEL MONITORING] Onset: 03-27-2017 Episodic Other aftercare (2 sources) 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; Translations: [OTHER [facility] (CURRENT) DRUG THERAPY] Onset: 02-26-2017 Episodic Other liver diseases (1 source) Alkaline phosphatase raised; Translations: [Abnormal levels of other serum enzymes] Onset: 01-29-2023 01-29-2023 Episodic Other screening for suspected conditions (not mental disorders or infectious disease) (5 sources) Encounter for screening mammogram for malignant neoplasm of breast; Translations: [Full blood count abnormal] Onset: 07-23-2022 Episodic Other skin disorders (1 source) Rash and other nonspecific skin eruption Onset: 10-27-2021 Resolved: 10-27-2021 Episodic Other upper respiratory infections (1 source) Sinusitis; Translations: [Chronic sinusitis, unspecified] Onset: 01-29-2023 Resolved: 01-30-2023 01-30-2023 Chronic Unclassified (1 source) COUGH, UNSPECIFIED; Translations: [COUGH, UNSPECIFIED] Onset: 01-03-2022 Unclassified (1 source) Contact with and (suspected) exposure to covid-19 Z20.822 Urinary tract infections (3 sources) Urinary tract infection, site not specified Onset: 08-14-2021 Resolved: 08-14-2021 Episodic Results Test Name Value Interpretation Reference Range Facility ALL CBC WITH AUTO DIFFon BASOPHILS ABSOLUTE AUTO 0 [facility] Basophils/100 WBC (Bld) 0.1 % Low 0.2 - 2.0 % [facility] Eosinophils/100 WBC (Bld) 2.5 % 0.9 - 7.0 % [facility] Erythrocyte distribution width (RBC) [Ratio] 14.6 % 11.0 - 15.0 % [facility] Hematocrit (Bld) [Volume fraction] 43.8 % 36.0 - 48.0 % [facility] Hemoglobin (Bld) [Mass/Vol] 14 g/dL 12.0 - 16.0 g/dL [facility] IMMATURE GRANULOCYTES ABS AUTO 0.02 [facility] Immature granulocytes/100 WBC (Bld) 0.3 % 0.0 - 0.5 % [facility] Interpretation and review of laboratory results Abnormal [facility] LYMPHOCYTES ABSOLUTE AUTO 1.4 [facility] Lymphocytes/100 WBC (Bld) 18.7 % Low 20.5 - 60.0 % [facility] MCH (RBC) [Entitic mass] 30.3 pg 26.7 - 34.0 pg [facility] MCHC (RBC) [Mass/Vol] 32 g/dL 29.9 - 35.2 g/dL [facility] MCV (RBC) [Entitic vol] 94.8 fL 81.0 - 99.0 fL [facility] MONOCYTES ABSOLUTE AUTO 0.8 [facility] Monocytes/100 WBC (Bld) 11.1 % 1.7 - 12.0 % [facility] NEUTROPHILS ABSOLUTE AUTO 4.9 [facility] Neutrophils/100 WBC (Bld) 67.3 % 43.0 - 75.0 % [facility] Platelet mean volume (Bld) [Entitic vol] 11.2 fL 9.5 - 13.5 fL [facility] TBH EO # 0.2 [facility] TBH PLT 219 [facility] TBH RBC 4.62 [facility] TB WBC 7.3 [facility] Documentationon 12-09-2023 Documentation [id number] Tanika Grimm 1955 F Date Provider Department Center 12/09/2023 BlossomFERNANDA LOMBARDO TXGely None Family History Family Status - Relation Status Age at Mother Father Reason for Visit and Comments: Prior auth : Mycophenolate [Other] [facility] Documentationon 11-26-2023 Documentation [id number] Tanika Grimm 1955 Date Provider Department Center 11/26/2023 CarlosFERNANDA MASON TXGely None Family History Family Status - Relation Status Age at Mother Father Reason for Visit and Comments: Prior auth Tac 0.5mg [Other] [facility] Documentationon 10-27-2023 Documentation [id number] Tanika Grimm 1955 Date Provider Department Center 10/27/2023 750-ANEL MIRANDA TXP None Family History Family Status - Relation Status Age at Mother Father [facility] 29on 09-23-2023 29 Addended by: DIANE LE on: 09/23/2023 03:27 PM Modules accepted: Orders [facility] Follow-Upon 09-23-2023 Follow-Up [id number] Tanika Grimm 1955 Date Provider Department Center 09/23/2023 124-VIRGIL HAYNES TXP None Family History Family Status - Relation Status Age at Mother Father Level of Service:19424 MS OFFICE/OUTPATIENT ESTABLISHED MOD MDM 30 MIN Reason for Visit and Comments: Kidney Follow-up [] - Pt has been having sores in her mouth for the past month. [facility] No Panel InformationOrdered By: Lindsay Soria on 08-30-2023 Quick Strep (POC) [facility] Documentationon 08-26-2023 Documentation [id number] AliceTanika Shabazz 1955 F Date Provider Department Center 08/26/2023 750-RUTH, TYMARA TXP None No family history on file [facility] Documentationon 05-19-2023 Documentation [id number] GrimmTanika Shabazz 1955 F Date Provider Department Center 05/19/2023 750-RUTH, TYMARA TXP None No family history on file [facility] COVID/FLU/RSV RT-PCRon 03-27 SARS-CoV-2 (COVID-19) RNA MURALI+probe Ql (Unsp spec) Negative [facility] H-art ([facility]) Other COVID/FLU/RSV RT-PCR Negative [facility] H-art ([facility]) Other Quick Strepon 03-27-2023 S. pyogenes Org specific cx Ql (Throat) Negative [facility] H-art ([facility]) Other Quick Strep [facility] H-art ([facility]) Other 29on 03-17-2023 29 Addended by: FLAKITA LAGOS on: 03/17/2023 11:44 AM Modules accepted: Orders [facility] Follow-Upon 03-17-2023 Follow-Up [id number] Tanika Grimm 1955 F Date Provider Department Center 03/17/2023 124-VIRGIL HAYNES TXP None No family history on file Level of Service:20563 MS OFFICE/OUTPATIENT ESTABLISHED LOW MDM 20 MIN Reason for Visit and Comments: Kidney Follow-up [] - Patient would like to know if Virgil would prescribe depression medication. [facility] 36on 01-31-2023 36 Transplant Pharmacis t [...] need for taper. The patient's verbalized understanding. [employer] added medication to med list. The patient's stated patient will be getting a DEXA scan and recommended to not have calcium 3 days before. Reviewed medication list for any products containing calcium - no medications found. No other questions or concerns at this time. Normal [facility] Telephoneon 01-31-2023 Telephone [id number] Tanika Grimm Harika 1955 F [facility] No family history on file Reason for Visit and Comments: Transplant Pharmacist - Drug Information [[id number]] Normal [facility] BILIRUBIN CONJUGATED (DIRECT )on 08-12-2022 BILI, CONJUGATED 0.1 mg/dL Normal 0.0-0.2 [facility] Comment on above: Performed By: #### D DAVIDSON, MG, PHOS, CMP, LIPID, URIC #### [facility] [address] [address] [address] Sarmad Patino GLYCOHEMOGLOBIN A1Con 2022 ADA RECOMMENDATION SEE BELOW Normal [facility] Comment on above: Result Comment: ADA RECOMMENDED LIMIT 4.0 - 6.0 ADA THERAPEUTIC TARGET < 7.0 ACTION SUGGESTED > 7.0 Performed By: #### D DAVIDSON, MG, PHOS, CMP, LIPID, URIC #### [facility] [address] [address] [address] Sarmad Patino Glucose [Mass/Vol] 108 mg/dL Normal [facility] Comment on above: Performed By: #### D DAVIDSON, MG, PHOS, CMP, LIPID, URIC #### [facility] [address] [address] [address] Sarmad Patino HbA1c (Bld) [Mass fraction] 5.4 % Normal 4.5-6.2 [facility] Comment on above: Performed By: #### D DAVIDSON, MG, PHOS, CMP, LIPID, URIC #### [facility] [address] [place] [address] Dr. Sarmad Patino MAGNESIUMon 08-12-2022 Magnesium [Mass/Vol] 1.7 mg/dL Critically low 1.8-2.4 [facility] Comment on above: Performed By: #### D DAVIDSON, MG, PHOS, CMP, LIPID, URIC #### [facility] [address] [place] [address] Dr. Sarmad Patino PHOSPHORUSon 08-12-2022 Phosphate [Mass/Vol] 3.9 mg/dL Normal 2.6-4.7 [facility] Comment on above: Performed By: #### U MAXI, LIPID, MG, CMP, DBIL, PHOS #### [facility] [address] [place] [address] Dr. Sarmad Patino PROF 14(COMP METB)on 023 Albumin [Mass/Vol] 3.9 g/dL Normal 3.4-5.0 [facility] Comment on above: Performed By: #### D DAVIDSON, MG, PHOS, CMP, LIPID, URIC #### [facility] [address] [place] [address] Dr. Sarmad Patino Albumin/Globulin [Mass ratio] 1.2 {ratio} Normal [facility] Comment on above: Performed By: #### D DAVIDSON, MG, PHOS, CMP, LIPID, URIC #### [facility] [address] [place] [address] Dr. Sarmad Patino ALP [Catalytic activity/Vol] 126 U/L Critically high 46-116 [facility] Comment on above: Performed By: #### D DAVIDSON, MG, PHOS, CMP, LIPID, URIC #### [facility] [address] [place] [address] Dr. Sarmad Patino ALT [Catalytic activity/Vol] 18 U/L Normal 14-59 [facility] Comment on above: Performed By: #### D DAVIDSON, MG, PHOS, CMP, LIPID, URIC #### [facility] [address] [address] [address] Sarmad Patino Anion gap [Moles/Vol] 10.4 mmol/L Normal [facility] Comment on above: Performed By: #### D DAVIDSON, MG, PHOS, CMP, LIPID, URIC #### [facility] [address] [address] [address] Sarmad Patino AST [Catalytic activity/Vol] 14 U/L Critically low 15-37 [facility] Comment on above: Performed By: #### D DAVIDSON, MG, PHOS, CMP, LIPID, URIC #### [facility] [address] [place] [address] Dr. Sarmad Patino Bilirubin [Mass/Vol] 0.7 mg/dL Normal 0.2-1.0 [facility] Comment on above: Performed By: #### D DAVIDSON, MG, PHOS, CMP, LIPID, URIC #### [facility] [address] [place] [address] Dr. Sarmad Patino Calcium [Mass/Vol] 9.8 mg/dL Normal 8.5-10.1 [facility] Comment on above: Performed By: #### D DAVIDSON, MG, PHOS, CMP, LIPID, URIC #### [facility] [address] [place] [address] Dr. Sarmad Patino Chloride [Moles/Vol] 106 mmol/L Normal 98-107 [facility] Comment on above: Performed By: #### D DAVIDSON, MG, PHOS, CMP, LIPID, URIC #### [facility] [address] [place] [address] Dr. Sarmad Patino CO2 [Moles/Vol] 32.1 mmol/L Critically high 21.0-32.0 [facility] Comment on above: Performed By: #### D DAVIDSON, MG, PHOS, CMP, LIPID, URIC #### [facility] [address] [place] [address] Dr. Sarmad Patino Creatinine [Mass/Vol] 0.92 mg/dL Normal 0.55-1.02 [facility] Comment on above: Performed By: #### D DAVIDSON, MG, PHOS, CMP, LIPID, URIC #### [facility] [address] [address] [address] Sarmad Patino EGFR-AF DJIBOUTIAN >60 Normal >=60 [facility] Comment on above: Performed By: #### D DAVIDSON, MG, PHOS, CMP, LIPID, URIC #### [facility] [address] [address] [address] Sarmad Patino EGFR-NON AF DJIBOUTIAN >60 Normal >=60 [facility] Comment on above: Performed By: #### D DAVIDSON, MG, PHOS, CMP, LIPID, URIC #### [facility] [address] [address] [address] Sarmad Patino Globulin (S) [Mass/Vol] 3.3 g/dL Normal [facility] Comment on above: Performed By: #### D DAVIDSON, MG, PHOS, CMP, LIPID, URIC #### [facility] [address] [address] [address] Sarmad Patino Glucose [Mass/Vol] 102 mg/dL Normal 74-106 [facility] Comment on above: Performed By: #### D DAVIDSON, MG, PHOS, CMP, LIPID, URIC #### [facility] [address] [address] [address] Sarmad Patino Potassium [Moles/Vol] 4.5 mmol/L Normal 3.5-5.1 [facility] Comment on above: Performed By: #### D DAVIDSON, MG, PHOS, CMP, LIPID, URIC #### [facility] [address] [address] [address] Sarmad Patino Protein [Mass/Vol] 7.2 g/dL Normal 6.4-8.2 [facility] Comment on above: Performed By: #### D DAVIDSON, MG, PHOS, CMP, LIPID, URIC #### [facility] [address] [address] [address] Sarmad Patino Sodium [Moles/Vol] 144 mmol/L Normal 136-145 [facility] Comment on above: Performed By: #### D DAVIDSON, MG, PHOS, CMP, LIPID, URIC #### [facility] [address] [address] [address] Sarmad Patino Urea nitrogen [Mass/Vol] 20.0 mg/dL Critically high 7.0-18.0 [facility] Comment on above: Performed By: #### D DAVIDSON, MG, PHOS, CMP, LIPID, URIC #### [facility] [address] [address] [address] Sarmad Patino Urea nitrogen/Creatinine [Mass ratio] 21.7 mg/mg Normal [facility] Comment on above: Performed By: #### D DAVIDSON, MG, PHOS, CMP, LIPID, URIC #### [facility] [address] [address] [address] Sarmad Patino URIC ACID SERUMon 08-12-2022 Urate [Mass/Vol] 5.2 mg/dL Normal 2.6-6.0 [facility] Comment on above: Performed By: #### D DAVIDSON, MG, PHOS, CMP, LIPID, URIC #### [facility] [address] [address] [address] Sarmad Patino MG MAMM SCREEN 3D DAVIDSON CADon 07-23-2022 MG MAMM SCREEN 3D DAVIDSON CAD Patient: TANIKA GRIMM Exam Date: 07/23/2022 : 1955 Gender:F Ordering : DR RAMON CARROLL M.D. Admission #: [id number] Family : Order #: [id number] CLICK HERE TO VIEW EXAM RADIOLOGY REPORT [...] Treatments None Family Cancers None LOCATION: [facility] BREAST COMPOSITION: Extremely dense, which lowers the [...] M.D. on 07/23/2022 at 16:59 Normal [facility] FK506 (TACROLIMUS) WHOLE BLO ODon 07-10-2022 Tacrolimus (FK506), Blood 3.8 ng/mL Normal 2.0-20.0 [facility] Comment on above: Result Comment: Trou gh (immediately following transplant) 15.0 . Trough (steady state, 2 weeks or more after transplant): 3.0 - 8.0 . Performed by LC-MS/MS technology. Performed By: #### D DAVIDSON, MG, PHOS, CMP, LIPID, URIC #### [facility] [address] [place] [address] Dr. Sarmad Patino BILIRUBIN CONJUGATED (DIRECT )on 07-08-2022 BILI, CONJUGATED 0.1 mg/dL Normal 0.0-0.2 [facility] Comment on above: Performed By: #### U MAXI, LIPID, MG, CMP, DBIL, PHOS #### [facility] [address] [address] [address] Sarmad Patino GLYCOHEMOGLOBIN A1Con 2022 ADA RECOMMENDATION SEE BELOW Normal [facility] Comment on above: Result Comment: ADA RECOMMENDED LIMIT 4.0 - 6.0 ADA THERAPEUTIC TARGET < 7.0 ACTION SUGGESTED > 7.0 Performed By: #### D DAVIDSON, MG, PHOS, CMP, LIPID, URIC #### [facility] [address] [address] [address] Sarmad Patino Glucose [Mass/Vol] 105 mg/dL Normal [facility] Comment on above: Performed By: #### D DAVIDSON, MG, PHOS, CMP, LIPID, URIC #### [facility] [address] [address] [address] Sarmad Patino HbA1c (Bld) [Mass fraction] 5.3 % Normal 4.5-6.2 [facility] Comment on above: Performed By: #### D DAVIDSON, MG, PHOS, CMP, LIPID, URIC #### [facility] [address] [place] [address] Dr. Sarmad Patino MAGNESIUMon 07-08-2022 Magnesium [Mass/Vol] 1.8 mg/dL Normal 1.8-2.4 [facility] Comment on above: Performed By: #### U MAXI, LIPID, MG, CMP, DBIL, PHOS #### [facility] [address] [place] [address] Dr. Sarmad Patino PHOSPHORUSon 07-08-2022 Phosphate [Mass/Vol] 3.8 mg/dL Normal 2.6-4.7 [facility] Comment on above: Performed By: #### U MAXI, LIPID, MG, CMP, DBIL, PHOS #### [facility] [address] [place] [address] Dr. Sarmad Patino PROF 14(COMP METB)on 023 Albumin [Mass/Vol] 3.7 g/dL Normal 3.4-5.0 [facility] Comment on above: Performed By: #### U MAXI, LIPID, MG, CMP, DBIL, PHOS #### [facility] [address] [place] [address] Dr. Sarmad Patino Albumin/Globulin [Mass ratio] 1.1 {ratio} Normal [facility] Comment on above: Performed By: #### U MAXI, LIPID, MG, CMP, DBIL, PHOS #### [facility] [address] [place] [address] Dr. Sarmad Patino ALP [Catalytic activity/Vol] 124 U/L Critically high 46-116 [facility] Comment on above: Performed By: #### U MAXI, LIPID, MG, CMP, DBIL, PHOS #### [facility] [address] [place] [address] Dr. Sarmad Patino ALT [Catalytic activity/Vol] 20 U/L Normal 14-59 [facility] Comment on above: Performed By: #### U MAXI, LIPID, MG, CMP, DBIL, PHOS #### [facility] [address] [address] [address] Sarmad Patino Anion gap [Moles/Vol] 11.5 mmol/L Normal [facility] Comment on above: Performed By: #### U MXAI, LIPID, MG, CMP, DBIL, PHOS #### [facility] [address] [address] [address] Sarmad Patino AST [Catalytic activity/Vol] 12 U/L Critically low 15-37 [facility] Comment on above: Performed By: #### U MAXI, LIPID, MG, CMP, DBIL, PHOS #### [facility] [address] [address] [address] Sarmad Patino Bilirubin [Mass/Vol] 0.5 mg/dL Normal 0.2-1.0 [facility] Comment on above: Performed By: #### U MAXI, LIPID, MG, CMP, DBIL, PHOS #### [facility] [address] [place] [address] Dr. Sarmad Patino Calcium [Mass/Vol] 9.6 mg/dL Normal 8.5-10.1 [facility] Comment on above: Performed By: #### U MAXI, LIPID, MG, CMP, DBIL, PHOS #### [facility] [address] [place] [address] Dr. Sarmad Patino Chloride [Moles/Vol] 106 mmol/L Normal 98-107 [facility] Comment on above: Performed By: #### U MAXI, LIPID, MG, CMP, DBIL, PHOS #### [facility] [address] [address] [address] Sarmad Patino CO2 [Moles/Vol] 29.7 mmol/L Normal 21.0-32.0 [facility] Comment on above: Performed By: #### U MAXI, LIPID, MG, CMP, DBIL, PHOS #### [facility] [address] [place] [address] Dr. Sarmad Patino Creatinine [Mass/Vol] 0.77 mg/dL Normal 0.55-1.02 [facility] Comment on above: Performed By: #### U MAXI, LIPID, MG, CMP, DBIL, PHOS #### [facility] [address] [address] [address] Sarmad Patino EGFR-AF DJIBOUTIAN >60 Normal >=60 [facility] Comment on above: Performed By: #### U MAXI, LIPID, MG, CMP, DBIL, PHOS #### [facility] [address] [address] [address] Sarmad Patino EGFR-NON AF DJIBOUTIAN >60 Normal >=60 [facility] Comment on above: Performed By: #### U MAXI, LIPID, MG, CMP, DBIL, PHOS #### [facility] [address] [place] [address] Dr. Sarmad Patino Globulin (S) [Mass/Vol] 3.4 g/dL Normal [facility] Comment on above: Performed By: #### U MAXI, LIPID, MG, CMP, DBIL, PHOS #### [facility] [address] [address] [address] Sarmad Patino Glucose [Mass/Vol] 97 mg/dL Normal 74-106 [facility] Comment on above: Performed By: #### U MAXI, LIPID, MG, CMP, DBIL, PHOS #### [facility] [address] [place] [address] Dr. Sarmad Patino Potassium [Moles/Vol] 4.2 mmol/L Normal 3.5-5.1 [facility] Comment on above: Performed By: #### U MAXI, LIPID, MG, CMP, DBIL, PHOS #### [facility] [address] [address] [address] Sarmad Patino Protein [Mass/Vol] 7.1 g/dL Normal 6.4-8.2 [facility] Comment on above: Performed By: #### U MAXI, LIPID, MG, CMP, DBIL, PHOS #### [facility] [address] [address] [address] Sarmad Patino Sodium [Moles/Vol] 143 mmol/L Normal 136-145 [facility] Comment on above: Performed By: #### U MAXI, LIPID, MG, CMP, DBIL, PHOS #### [facility] [address] [place] [address] Dr. Sarmad Patino Urea nitrogen [Mass/Vol] 26.0 mg/dL Critically high 7.0-18.0 [facility] Comment on above: Performed By: #### U MAXI, LIPID, MG, CMP, DBIL, PHOS #### [facility] [address] [place] [address] Dr. Sarmad Patino Urea nitrogen/Creatinine [Mass ratio] 33.8 mg/mg Normal [facility] Comment on above: Performed By: #### U MAXI, LIPID, MG, CMP, DBIL, PHOS #### [facility] [address] [place] [address] Dr. Sarmad Patino URIC ACID SERUMon 07-08-2022 Urate [Mass/Vol] 4.7 mg/dL Normal 2.6-6.0 [facility] Comment on above: Performed By: #### U MAXI, LIPID, MG, CMP, DBIL, PHOS #### [facility] [address] [place] [address] Dr. Sarmad Patino FK506 (TACROLIMUS) WHOLE BLO ODon 06-13-2022 Tacrolimus (FK506), Blood 3.0 ng/mL Normal 2.0-20.0 [facility] Comment on above: Result Comment: Trou gh (immediately following transplant) 15.0 . Trough (steady state, 2 weeks or more after transplant): 3.0 - 8.0 . Performed by LC-MS/MS technology. Performed By: #### D DAVIDSON, MG, PHOS, CMP, LIPID, URIC #### [facility] [address] [place] [address] Dr. Sarmad Patino BK VIRUS PCR QUANTon 023 BKV DNA QUANT PCR PLASMA Negative Normal Negative [facility] Comment on above: Result Comment: No B K DNA detected. . The linear range of the assay is 22 - 100,000,000 IU/mL. Performed By: #### B KVIRUS #### [facility] [address] [place] [address] Dr. Sarmad Patino Log10 BKV DNA Plasma Normal [facility] Comment on above: Performed By: #### B KVIRUS #### [facility] [address] [address] [address] Sarmad Patino BILIRUBIN CONJUGATED (DIRECT )on 06-10-2022 BILI, CONJUGATED 0.1 mg/dL Normal 0.0-0.2 [facility] Comment on above: Performed By: #### U MAXI, LIPID, MG, CMP, DBIL, PHOS #### [facility] [address] [address] [address] Sarmad Patino GLYCOHEMOGLOBIN A1Con 2022 ADA RECOMMENDATION SEE BELOW Normal [facility] Comment on above: Result Comment: ADA RECOMMENDED LIMIT 4.0 - 6.0 ADA THERAPEUTIC TARGET < 7.0 ACTION SUGGESTED > 7.0 Performed By: #### D DAVIDSON, MG, PHOS, CMP, LIPID, URIC #### [facility] [address] [place] [address] Dr. Sarmad Patino Glucose [Mass/Vol] 114 mg/dL Normal [facility] Comment on above: Performed By: #### D DAVIDSON, MG, PHOS, CMP, LIPID, URIC #### [facility] [address] [place] [address] Dr. Sarmad Patino HbA1c (Bld) [Mass fraction] 5.6 % Normal 4.5-6.2 [facility] Comment on above: Performed By: #### D DAVIDSON, MG, PHOS, CMP, LIPID, URIC #### [facility] [address] [place] [address] Dr. Sarmad Patino MAGNESIUMon 06-10-2022 Magnesium [Mass/Vol] 1.6 mg/dL Critically low 1.8-2.4 [facility] Comment on above: Performed By: #### U MAXI, LIPID, MG, CMP, DBIL, PHOS #### [facility] [address] [place] [address] Dr. Sarmad Patino PROF 14(COMP METB)on 023 Albumin [Mass/Vol] 3.7 g/dL Normal 3.4-5.0 [facility] Comment on above: Performed By: #### U MAXI, LIPID, MG, CMP, DBIL, PHOS #### [facility] [address] [address] [address] Sarmad Patino Albumin/Globulin [Mass ratio] 1.1 {ratio} Normal [facility] Comment on above: Performed By: #### U MAXI, LIPID, MG, CMP, DBIL, PHOS #### [facility] [address] [address] [address] Sarmad Patino ALP [Catalytic activity/Vol] 142 U/L Critically high 46-116 [facility] Comment on above: Performed By: #### U MAXI, LIPID, MG, CMP, DBIL, PHOS #### [facility] [address] [place] [address] Dr. Sarmad Patino ALT [Catalytic activity/Vol] 29 U/L Normal 14-59 [facility] Comment on above: Performed By: #### U MAXI, LIPID, MG, CMP, DBIL, PHOS #### [facility] [address] [place] [address] Dr. Sarmad Patino Anion gap [Moles/Vol] 11.1 mmol/L Normal [facility] Comment on above: Performed By: #### U MAXI, LIPID, MG, CMP, DBIL, PHOS #### [facility] [address] [place] [address] Dr. Sarmad Patino AST [Catalytic activity/Vol] 19 U/L Normal 15-37 [facility] Comment on above: Performed By: #### U MAXI, LIPID, MG, CMP, DBIL, PHOS #### [facility] [address] [place] [address] Dr. Sarmad Patino Bilirubin [Mass/Vol] 0.6 mg/dL Normal 0.2-1.0 [facility] Comment on above: Performed By: #### U MAXI, LIPID, MG, CMP, DBIL, PHOS #### [facility] [address] [place] [address] Dr. Sarmad Patino Calcium [Mass/Vol] 9.8 mg/dL Normal 8.5-10.1 [facility] Comment on above: Performed By: #### U MAXI, LIPID, MG, CMP, DBIL, PHOS #### [facility] [address] [address] [address] Sarmad Patino Chloride [Moles/Vol] 103 mmol/L Normal 98-107 [facility] Comment on above: Performed By: #### U MAXI, LIPID, MG, CMP, DBIL, PHOS #### [facility] [address] [address] [address] Sarmad Patino CO2 [Moles/Vol] 30.7 mmol/L Normal 21.0-32.0 [facility] Comment on above: Performed By: #### U MAXI, LIPID, MG, CMP, DBIL, PHOS #### [facility] [address] [address] [address] Sarmad Patino Creatinine [Mass/Vol] 0.79 mg/dL Normal 0.55-1.02 [facility] Comment on above: Performed By: #### U MAXI, LIPID, MG, CMP, DBIL, PHOS #### [facility] [address] [address] [address] Sarmad Patino EGFR-AF DJIBOUTIAN >60 Normal >=60 [facility] Comment on above: Performed By: #### U MAXI, LIPID, MG, CMP, DBIL, PHOS #### [facility] [address] [address] [address] Sarmad Patino EGFR-NON AF DJIBOUTIAN >60 Normal >=60 [facility] Comment on above: Performed By: #### U MAXI, LIPID, MG, CMP, DBIL, PHOS #### [facility] [address] [address] [address] Sarmad Patino Globulin (S) [Mass/Vol] 3.4 g/dL Normal [facility] Comment on above: Performed By: #### U MAXI, LIPID, MG, CMP, DBIL, PHOS #### [facility] [address] [address] [address] Sarmad Patino Glucose [Mass/Vol] 94 mg/dL Normal 74-106 [facility] Comment on above: Performed By: #### U MAXI, LIPID, MG, CMP, DBIL, PHOS #### [facility] [address] [place] [address] Dr. Sarmad Patino Potassium [Moles/Vol] 3.8 mmol/L Normal 3.5-5.1 [facility] Comment on above: Performed By: #### U MAXI, LIPID, MG, CMP, DBIL, PHOS #### [facility] [address] [place] [address] Dr. Sarmad Patino Protein [Mass/Vol] 7.1 g/dL Normal 6.4-8.2 [facility] Comment on above: Performed By: #### U MAXI, LIPID, MG, CMP, DBIL, PHOS #### [facility] [address] [place] [address] Dr. Sarmad Patino Sodium [Moles/Vol] 141 mmol/L Normal 136-145 [facility] Comment on above: Performed By: #### U MAXI, LIPID, MG, CMP, DBIL, PHOS #### [facility] [address] [place] [address] Dr. Sarmad Patino Urea nitrogen [Mass/Vol] 17.0 mg/dL Normal 7.0-18.0 [facility] Comment on above: Performed By: #### U MAXI, LIPID, MG, CMP, DBIL, PHOS #### [facility] [address] [place] [address] Dr. Sarmad Patino Urea nitrogen/Creatinine [Mass ratio] 21.5 mg/mg Normal [facility] Comment on above: Performed By: #### U MAXI, LIPID, MG, CMP, DBIL, PHOS #### [facility] [address] [place] [address] Dr. Sarmad Patino URIC ACID SERUMon 06-10-2022 Urate [Mass/Vol] 5.1 mg/dL Normal 2.6-6.0 [facility] Comment on above: Performed By: #### U MAXI, LIPID, MG, CMP, DBIL, PHOS #### [facility] [address] [place] [address] Dr. Sarmad Patino BK VIRUS PCR QUANTon 023 BKV DNA QUANT PCR PLASMA Negative Normal Negative [facility] Comment on above: Result Comment: No B K DNA detected. . The linear range of the assay is 22 - 100,000,000 IU/mL. Performed By: #### U MAXI, LIPID, MG, CMP, DBIL, PHOS #### [facility] [address] [place] [address] Dr. Sarmad Patino Log10 BKV DNA Plasma Normal [facility] Comment on above: Performed By: #### U MAXI, LIPID, MG, CMP, DBIL, PHOS #### [facility] [address] [address] [address] Sarmad Patino FK506 (TACROLIMUS) WHOLE BLO ODon 05-13-2022 Tacrolimus (FK506), Blood 4.1 ng/mL Normal 2.0-20.0 [facility] Comment on above: Result Comment: Trou gh (immediately following transplant) 15.0 . Trough (steady state, 2 weeks or more after transplant): 3.0 - 8.0 . Performed by LC-MS/MS technology. Performed By: #### U MAXI, LIPID, MG, CMP, DBIL, PHOS #### [facility] [address] [address] [address] Sarmad Patino BILIRUBIN CONJUGATED (DIRECT )on 05-10-2022 BILI, CONJUGATED 0.1 mg/dL Normal 0.0-0.2 [facility] Comment on above: Performed By: #### D DAVIDSON, MG, PHOS, CMP, LIPID, URIC #### [facility] [address] [address] [address] Sarmad Patino GLYCOHEMOGLOBIN A1Con 2022 ADA RECOMMENDATION SEE BELOW Normal [facility] Comment on above: Result Comment: ADA RECOMMENDED LIMIT 4.0 - 6.0 ADA THERAPEUTIC TARGET < 7.0 ACTION SUGGESTED > 7.0 Performed By: #### D DAVIDSON, MG, PHOS, CMP, LIPID, URIC #### [facility] [address] [place] [address] Dr. Sarmad Patino Glucose [Mass/Vol] 108 mg/dL Normal [facility] Comment on above: Performed By: #### D DAVIDSON, MG, PHOS, CMP, LIPID, URIC #### [facility] [address] [address] [address] Sarmad Patino HbA1c (Bld) [Mass fraction] 5.4 % Normal 4.5-6.2 [facility] Comment on above: Performed By: #### D DAVIDSON, MG, PHOS, CMP, LIPID, URIC #### [facility] [address] [place] [address] Dr. Sarmad Patino MAGNESIUMon 05-10-2022 Magnesium [Mass/Vol] 1.9 mg/dL Normal 1.8-2.4 [facility] Comment on above: Performed By: #### U MAXI, LIPID, MG, CMP, DBIL, PHOS #### [facility] [address] [place] [address] Dr. Sarmad Patino PROF 14(COMP METB)on 023 Albumin [Mass/Vol] 3.9 g/dL Normal 3.4-5.0 [facility] Comment on above: Performed By: #### D DAVIDSON, MG, PHOS, CMP, LIPID, URIC #### [facility] [address] [place] [address] Dr. Sarmad Patino Albumin/Globulin [Mass ratio] 1.2 {ratio} Normal [facility] Comment on above: Performed By: #### D DAVIDSON, MG, PHOS, CMP, LIPID, URIC #### [facility] [address] [address] [address] Sarmad Patino ALP [Catalytic activity/Vol] 114 U/L Normal 46-116 [facility] Comment on above: Performed By: #### D DAVIDSON, MG, PHOS, CMP, LIPID, URIC #### [facility] [address] [place] [address] Dr. Sarmad Patino ALT [Catalytic activity/Vol] 18 U/L Normal 14-59 [facility] Comment on above: Performed By: #### D DAVIDSON, MG, PHOS, CMP, LIPID, URIC #### [facility] [address] [place] [address] Dr. Sarmad Patino Anion gap [Moles/Vol] 15.9 mmol/L Normal [facility] Comment on above: Performed By: #### D DAVIDSON, MG, PHOS, CMP, LIPID, URIC #### [facility] [address] [address] [address] Sarmad Patino AST [Catalytic activity/Vol] 17 U/L Normal 15-37 [facility] Comment on above: Performed By: #### D DAVIDSON, MG, PHOS, CMP, LIPID, URIC #### [facility] [address] [address] [address] Sarmad Patino Bilirubin [Mass/Vol] 0.4 mg/dL Normal 0.2-1.0 [facility] Comment on above: Performed By: #### D DAVIDSON, MG, PHOS, CMP, LIPID, URIC #### [facility] [address] [place] [address] Dr. Sarmad Patino Calcium [Mass/Vol] 9.8 mg/dL Normal 8.5-10.1 [facility] Comment on above: Performed By: #### D DAVIDSON, MG, PHOS, CMP, LIPID, URIC #### [facility] [address] [address] [address] Sarmad Patino Chloride [Moles/Vol] 103 mmol/L Normal 98-107 [facility] Comment on above: Performed By: #### D DAVIDSON, MG, PHOS, CMP, LIPID, URIC #### [facility] [address] [address] [address] Sarmad Patino CO2 [Moles/Vol] 29.2 mmol/L Normal 21.0-32.0 [facility] Comment on above: Performed By: #### D DAVIDSON, MG, PHOS, CMP, LIPID, URIC #### [facility] [address] [address] [address] Sarmad Patino Creatinine [Mass/Vol] 0.74 mg/dL Normal 0.55-1.02 [facility] Comment on above: Performed By: #### D DAVIDSON, MG, PHOS, CMP, LIPID, URIC #### [facility] [address] [address] [address] Sarmad Patino EGFR-AF DJIBOUTIAN >60 Normal >=60 [facility] Comment on above: Performed By: #### D DAVIDSON, MG, PHOS, CMP, LIPID, URIC #### [facility] [address] [address] [address] Sarmad Patino EGFR-NON AF DJIBOUTIAN >60 Normal >=60 [facility] Comment on above: Performed By: #### D DAVIDSON, MG, PHOS, CMP, LIPID, URIC #### [facility] [address] [address] [address] Sarmad Patino Globulin (S) [Mass/Vol] 3.2 g/dL Normal [facility] Comment on above: Performed By: #### D DAVIDSON, MG, PHOS, CMP, LIPID, URIC #### [facility] [address] [address] [address] Sarmad Patino Glucose [Mass/Vol] 94 mg/dL Normal 74-106 [facility] Comment on above: Performed By: #### D DAVIDSON, MG, PHOS, CMP, LIPID, URIC #### [facility] [address] [address] [address] Sarmad Patino Potassium [Moles/Vol] 4.1 mmol/L Normal 3.5-5.1 [facility] Comment on above: Performed By: #### D DAVIDSON, MG, PHOS, CMP, LIPID, URIC #### [facility] [address] [address] [address] Sarmad Patino Protein [Mass/Vol] 7.1 g/dL Normal 6.4-8.2 [facility] Comment on above: Performed By: #### D DAVIDSON, MG, PHOS, CMP, LIPID, URIC #### [facility] [address] [address] [address] Sarmad Patino Sodium [Moles/Vol] 144 mmol/L Normal 136-145 [facility] Comment on above: Performed By: #### D DAVIDSON, MG, PHOS, CMP, LIPID, URIC #### [facility] [address] [address] [address] Sarmad Patino Urea nitrogen [Mass/Vol] 18.0 mg/dL Normal 7.0-18.0 [facility] Comment on above: Performed By: #### D DAVIDSON, MG, PHOS, CMP, LIPID, URIC #### [facility] [address] [address] [address] Sarmad Patino Urea nitrogen/Creatinine [Mass ratio] 24.3 mg/mg Normal [facility] Comment on above: Performed By: #### D DAVIDSON, MG, PHOS, CMP, LIPID, URIC #### [facility] [address] [address] [address] Sarmad Patino URIC ACID SERUMon 05-10-2022 Urate [Mass/Vol] 5.1 mg/dL Normal 2.6-6.0 [facility] Comment on above: Performed By: #### U MAXI, LIPID, MG, CMP, DBIL, PHOS #### [facility] [address] [place] [address] Dr. Sarmad Patino MYCOPHENOLIC ACIDon 04-17-19 Mycophenolic Acid 1.2 ug/mL Normal 1.0-3.5 [facility] Comment on above: Performed By: #### D DAVIDSON, MG, PHOS, CMP, LIPID, URIC #### [facility] [address] [place] [address] Dr. Sarmad Patino Mycophenolic Acid Glucuronide 37 ug/mL Normal 15-125 [facility] Comment on above: Result Comment: [facility] 's Reference Range: 35-100 mcg/mL. Performed By: #### D DAVIDSON, MG, PHOS, CMP, LIPID, URIC #### [facility] [address] [place] [address] Dr. Sarmad Patino FK506 (TACROLIMUS) WHOLE BLO ODon 04-10-2022 Tacrolimus (FK506), Blood 4.2 ng/mL Normal 2.0-20.0 [facility] Comment on above: Result Comment: Trou gh (immediately following transplant) 15.0 . Trough (steady state, 2 weeks or more after transplant): 3.0 - 8.0 . Performed by LC-MS/MS technology. Performed By: #### D DAVIDSON, MG, PHOS, CMP, LIPID, URIC #### [facility] [address] [address] [address] Sarmad Patino BILIRUBIN CONJUGATED (DIRECT )on 04-08-2022 BILI, CONJUGATED 0.1 mg/dL Normal 0.0-0.2 [facility] Comment on above: Performed By: #### U MAXI, LIPID, MG, CMP, DBIL, PHOS #### [facility] [address] [address] [address] Sarmad Patino CBC AUTO DIFFon 04-08-2022 BASO # 0.0 103/ul Normal 0.0-0.1 [facility] Comment on above: Performed By: #### D DAVIDSON, MG, PHOS, CMP, LIPID, URIC #### [facility] [address] [place] [address] Dr. Sarmad Patino Basophils/100 WBC (Bld) 0.3 % Normal 0.2-2.0 [facility] Comment on above: Performed By: #### D DAVIDSON, MG, PHOS, CMP, LIPID, URIC #### [facility] [address] [place] [address] Dr. Sarmad Patino EO # 0.1 103/ul Normal 0.0-0.7 [facility] Comment on above: Performed By: #### D DAVIDSON, MG, PHOS, CMP, LIPID, URIC #### [facility] [address] [place] [address] Dr. Sarmad Patino Eosinophils/100 WBC (Bld) 1.4 % Normal 0.9-7.0 [facility] Comment on above: Performed By: #### D DAVIDSON, MG, PHOS, CMP, LIPID, URIC #### [facility] [address] [place] [address] Dr. Sarmad Patino Erythrocyte distribution width (RBC) [Ratio] 15.8 % Critically high 11.0-15.0 [facility] Comment on above: Performed By: #### D DAVIDSON, MG, PHOS, CMP, LIPID, URIC #### [facility] [address] [place] [address] Dr. Sarmad Patino Hematocrit (Bld) [Volume fraction] 43.0 % Normal 36.0-48.0 [facility] Comment on above: Performed By: #### D DAVIDSON, MG, PHOS, CMP, LIPID, URIC #### [facility] [address] [place] [address] Dr. Sarmad Patino Hemoglobin (Bld) [Mass/Vol] 15.0 g/dL Normal 12.0-16.0 [facility] Comment on above: Performed By: #### D DAVIDSON, MG, PHOS, CMP, LIPID, URIC #### [facility] [address] [address] [address] Sarmad Patino IG # 0.01 10e3/ul Normal 0.00-0.03 [facility] Comment on above: Performed By: #### D DAVIDSON, MG, PHOS, CMP, LIPID, URIC #### [facility] [address] [place] [address] Dr. Sarmad Patino IG % 0.1 % Normal 0.0-0.5 [facility] Comment on above: Performed By: #### D DAVIDSON, MG, PHOS, CMP, LIPID, URIC #### [facility] [address] [place] [address] Dr. Sarmad Patino LYMPH # 1.3 103/ul Normal 1.2-3.8 [facility] Comment on above: Performed By: #### D DAVIDSON, MG, PHOS, CMP, LIPID, URIC #### [facility] [address] [place] [address] Dr. Sarmad Patino Lymphocytes/100 WBC (Bld) 18.3 % Critically low 20.5-60.0 [facility] Comment on above: Performed By: #### D DAVIDSON, MG, PHOS, CMP, LIPID, URIC #### [facility] [address] [place] [address] Dr. Sarmad Patino MANUAL DIFF REQ NO Normal [facility] Comment on above: Performed By: #### D DAVIDSON, MG, PHOS, CMP, LIPID, URIC #### [facility] [address] [place] [address] Dr. Sarmad Patino MCH (RBC) [Entitic mass] 29.7 pg Normal 26.7-34.0 [facility] Comment on above: Performed By: #### D DAVIDSON, MG, PHOS, CMP, LIPID, URIC #### [facility] [address] [place] [address] Dr. Sarmad Patino MCHC (RBC) [Mass/Vol] 34.9 g/dL Normal 29.9-35.2 [facility] Comment on above: Performed By: #### D DAVIDSON, MG, PHOS, CMP, LIPID, URIC #### [facility] [address] [place] [address] Dr. Sarmad Patino MCV (RBC) [Entitic vol] 85.1 fL Normal 81.0-99.0 [facility] Comment on above: Performed By: #### D DAVIDSON, MG, PHOS, CMP, LIPID, URIC #### [facility] [address] [place] [address] Dr. Sarmad Patino MONO # 0.7 103/ul Normal 0.3-0.8 [facility] Comment on above: Performed By: #### D DAVIDSON, MG, PHOS, CMP, LIPID, URIC #### [facility] [address] [place] [address] Dr. Sarmad Patino Monocytes/100 WBC (Bld) 9.8 % Normal 1.7-12.0 [facility] Comment on above: Performed By: #### D DAVIDSON, MG, PHOS, CMP, LIPID, URIC #### [facility] [address] [place] [address] Dr. Sarmad Patino NEUT # 5.1 103/ul Normal 1.4-6.5 [facility] Comment on above: Performed By: #### D DAVIDSON, MG, PHOS, CMP, LIPID, URIC #### [facility] [address] [place] [address] Dr. Sarmad Patino Neutrophils/100 WBC (Bld) 70.1 % Normal 43.0-75.0 [facility] Comment on above: Performed By: #### D DAVIDSON, MG, PHOS, CMP, LIPID, URIC #### [facility] [address] [place] [address] Dr. Sarmad Patino Platelet mean volume (Bld) [Entitic vol] 10.4 fL Normal 9.5-13.5 [facility] Comment on above: Performed By: #### D DAVIDSON, MG, PHOS, CMP, LIPID, URIC #### [facility] [address] [address] [address] Sarmad Patino PLT 229 103/ul Normal 150-450 [facility] Comment on above: Performed By: #### D DAVIDSON, MG, PHOS, CMP, LIPID, URIC #### [facility] [address] [address] [address] Sarmad Patino RBC 5.05 106/ul Normal 4.20-5.40 [facility] Comment on above: Performed By: #### D DAVIDSON, MG, PHOS, CMP, LIPID, URIC #### [facility] [address] [place] [address] Dr. Sarmad Patino WBC 7.2 103/ul Normal 4.0-11.0 [facility] Comment on above: Performed By: #### D DAVIDSON, MG, PHOS, CMP, LIPID, URIC #### [facility] [address] [place] [address] Dr. Sarmad Patino LIPID PROFILEon 04-08-2022 CHOL-HDL RATIO NORM SEE BELOW Normal [facility] Comment on above: Result Comment: 3.3 - 4.4 LOW RISK 4.4 - 7.1 AVERAGE RISK 7.1 - 11.0 MODERATE RISK >11.0 HIGH RISK Performed By: #### U MAXI, LIPID, MG, CMP, DBIL, PHOS #### [facility] [address] [address] [address] Sarmad Patino Cholesterol [Mass/Vol] 134 mg/dL Normal <=200 [facility] Comment on above: Performed By: #### U MAXI, LIPID, MG, CMP, DBIL, PHOS #### [facility] [address] [address] [address] Sarmad Patino Cholesterol in HDL [Mass/Vol] 55 mg/dL Normal 40-60 [facility] Comment on above: Performed By: #### U MAXI, LIPID, MG, CMP, DBIL, PHOS #### [facility] [address] [address] [address] Sarmad Patino Cholesterol in LDL [Mass/Vol] 56.6 mg/dL Normal [facility] Comment on above: Performed By: #### U MAXI, LIPID, MG, CMP, DBIL, PHOS #### [facility] [address] [address] [address] Sarmad Patino Cholesterol.total/Cho lesterol in HDL [Mass ratio] 2.4 {ratio} Normal [facility] Comment on above: Performed By: #### U MAXI, LIPID, MG, CMP, DBIL, PHOS #### [facility] [address] [address] [address] Sarmad Patino HDL NORMAL > or = 60 mg/dl - LO W CARDIOVASCULAR RISK <40 mg/dl - HIGH CARDIOVASCULAR RISK Normal [facility] Comment on above: Performed By: #### U MAXI, LIPID, MG, CMP, DBIL, PHOS #### [facility] [address] [address] [address] Sarmad Patino LDL CALC NORMAL SEE BELOW Normal [facility] Comment on above: Result Comment: <100 mg/dl OPTIMAL 100 - 129 mg/dl NEAR OR ABOVE OPTIMAL 130 - 159 mg/dl BORDERLINE HIGH 160 - 189 mg/dl HIGH >190 mg/dl VERY HIGH Performed By: #### U MAXI, LIPID, MG, CMP, DBIL, PHOS #### [facility] [address] [address] [address] Sarmad Patino Triglyceride [Mass/Vol] 112 mg/dL Normal <=150 [facility] Comment on above: Performed By: #### U MAXI, LIPID, MG, CMP, DBIL, PHOS #### [facility] [address] [address] [address] Sarmad Patino VLDL CALC 22.4 mg/dL Normal [facility] Comment on above: Performed By: #### U MAXI, LIPID, MG, CMP, DBIL, PHOS #### [facility] [address] [address] [address] Sarmad Patino MAGNESIUMon 04-08-2022 Magnesium [Mass/Vol] 1.8 mg/dL Normal 1.8-2.4 [facility] Comment on above: Performed By: #### U MAXI, LIPID, MG, CMP, DBIL, PHOS #### [facility] [address] [place] [address] Dr. Sarmad Patino PHOSPHORUSon 04-08-2022 Phosphate [Mass/Vol] 3.9 mg/dL Normal 2.6-4.7 [facility] Comment on above: Performed By: #### U MAXI, LIPID, MG, CMP, DBIL, PHOS #### [facility] [address] [place] [address] Dr. Sarmad Patino PROF 14(COMP METB)on 023 Albumin [Mass/Vol] 4.0 g/dL Normal 3.4-5.0 [facility] Comment on above: Performed By: #### U MAXI, LIPID, MG, CMP, DBIL, PHOS #### [facility] [address] [place] [address] Dr. Sarmad Patino Albumin/Globulin [Mass ratio] 1.3 {ratio} Normal [facility] Comment on above: Performed By: #### U MAXI, LIPID, MG, CMP, DBIL, PHOS #### [facility] [address] [place] [address] Dr. Sarmad Patino ALP [Catalytic activity/Vol] 108 U/L Normal 46-116 [facility] Comment on above: Performed By: #### U MAXI, LIPID, MG, CMP, DBIL, PHOS #### [facility] [address] [place] [address] Dr. Sarmad Patino ALT [Catalytic activity/Vol] 15 U/L Normal 14-59 [facility] Comment on above: Performed By: #### U MAXI, LIPID, MG, CMP, DBIL, PHOS #### [facility] [address] [place] [address] Dr. Sarmad Patino Anion gap [Moles/Vol] 14.3 mmol/L Normal [facility] Comment on above: Performed By: #### U MAXI, LIPID, MG, CMP, DBIL, PHOS #### [facility] [address] [place] [address] Dr. Sarmad Patino AST [Catalytic activity/Vol] 15 U/L Normal 15-37 [facility] Comment on above: Performed By: #### U MAXI, LIPID, MG, CMP, DBIL, PHOS #### [facility] [address] [place] [address] Dr. Sarmad Patino Bilirubin [Mass/Vol] 0.5 mg/dL Normal 0.2-1.0 [facility] Comment on above: Performed By: #### U MAXI, LIPID, MG, CMP, DBIL, PHOS #### [facility] [address] [place] [address] Dr. Sarmad Patino Calcium [Mass/Vol] 9.7 mg/dL Normal 8.5-10.1 [facility] Comment on above: Performed By: #### U MAXI, LIPID, MG, CMP, DBIL, PHOS #### [facility] [address] [place] [address] Dr. Sarmad Patino Chloride [Moles/Vol] 105 mmol/L Normal 98-107 [facility] Comment on above: Performed By: #### U MAXI, LIPID, MG, CMP, DBIL, PHOS #### [facility] [address] [place] [address] Dr. Sarmad Patino CO2 [Moles/Vol] 26.6 mmol/L Normal 21.0-32.0 [facility] Comment on above: Performed By: #### U MAXI, LIPID, MG, CMP, DBIL, PHOS #### [facility] [address] [place] [address] Dr. Sarmad Patino Creatinine [Mass/Vol] 0.80 mg/dL Normal 0.55-1.02 [facility] Comment on above: Performed By: #### U MAXI, LIPID, MG, CMP, DBIL, PHOS #### [facility] [address] [place] [address] Dr. Sarmad Patino EGFR-AF DJIBOUTIAN >60 Normal >=60 [facility] Comment on above: Performed By: #### U MAXI, LIPID, MG, CMP, DBIL, PHOS #### [facility] [address] [place] [address] Dr. Sarmad Patino EGFR-NON AF DJIBOUTIAN >60 Normal >=60 [facility] Comment on above: Performed By: #### U MAXI, LIPID, MG, CMP, DBIL, PHOS #### [facility] [address] [place] [address] Dr. Sarmad Patino Globulin (S) [Mass/Vol] 3.0 g/dL Normal [facility] Comment on above: Performed By: #### U MAXI, LIPID, MG, CMP, DBIL, PHOS #### [facility] [address] [place] [address] Dr. Sarmad Patino Glucose [Mass/Vol] 99 mg/dL Normal 74-106 [facility] Comment on above: Performed By: #### U MAXI, LIPID, MG, CMP, DBIL, PHOS #### [facility] [address] [place] [address] Dr. Sarmad Patino Potassium [Moles/Vol] 3.9 mmol/L Normal 3.5-5.1 [facility] Comment on above: Performed By: #### U MAXI, LIPID, MG, CMP, DBIL, PHOS #### [facility] [address] [place] [address] Dr. Sarmad Patino Protein [Mass/Vol] 7.0 g/dL Normal 6.4-8.2 [facility] Comment on above: Performed By: #### U MAXI, LIPID, MG, CMP, DBIL, PHOS #### [facility] [address] [place] [address] Dr. Sarmad Patino Sodium [Moles/Vol] 142 mmol/L Normal 136-145 [facility] Comment on above: Performed By: #### U MAXI, LIPID, MG, CMP, DBIL, PHOS #### [facility] [address] [place] [address] Dr. Sarmad Patino Urea nitrogen [Mass/Vol] 14.0 mg/dL Normal 7.0-18.0 [facility] Comment on above: Performed By: #### U MAXI, LIPID, MG, CMP, DBIL, PHOS #### [facility] [address] [address] [address] Sarmad Patino Urea nitrogen/Creatinine [Mass ratio] 17.5 mg/mg Normal [facility] Comment on above: Performed By: #### U MAXI, LIPID, MG, CMP, DBIL, PHOS #### [facility] [address] [address] [address] Sarmad Patino URIC ACID SERUMon 04-08-2022 Urate [Mass/Vol] 5.2 mg/dL Normal 2.6-6.0 [facility] Comment on above: Performed By: #### U MAXI, LIPID, MG, CMP, DBIL, PHOS #### [facility] [address] [address] [address] Sarmad Patino BK VIRUS PCR QUANTon 022 BKV DNA QUANT PCR PLASMA Negative Normal Negative [facility] Comment on above: Result Comment: No B K DNA detected. . The linear range of the assay is 22 - 100,000,000 IU/mL. Performed By: #### D DAVIDSON, MG, PHOS, CMP, LIPID, URIC #### [facility] [address] [address] [address] Sarmad Patino Log10 BKV DNA Plasma Normal [facility] Comment on above: Performed By: #### D DAVIDSON, MG, PHOS, CMP, LIPID, URIC #### [facility] [address] [address] [address] Sarmad Patino FK506 (TACROLIMUS) WHOLE BLO ODon 03-13-2022 Tacrolimus (FK506), Blood 5.0 ng/mL Normal 2.0-20.0 [facility] Comment on above: Result Comment: Trou gh (immediately following transplant) 15.0 . Trough (steady state, 2 weeks or more after transplant): 3.0 - 8.0 . Performed by LC-MS/MS technology. Performed By: #### D DAVIDSON, MG, PHOS, CMP, LIPID, URIC #### [facility] [address] [address] [address] Sarmad Patino GLYCOHEMOGLOBIN A1Con 2021 ADA RECOMMENDATION SEE BELOW Normal [facility] Comment on above: Result Comment: ADA RECOMMENDED LIMIT 4.0 - 6.0 ADA THERAPEUTIC TARGET < 7.0 ACTION SUGGESTED > 7.0 Performed By: #### D DAVIDSON, MG, PHOS, CMP, LIPID, URIC #### [facility] [address] [place] [address] Dr. Sarmad Patino Glucose [Mass/Vol] 111 mg/dL Normal [facility] Comment on above: Performed By: #### D DAVIDSON, MG, PHOS, CMP, LIPID, URIC #### [facility] [address] [place] [address] Dr. Sarmad Patino HbA1c (Bld) [Mass fraction] 5.5 % Normal 4.5-6.2 [facility] Comment on above: Performed By: #### D DAVIDSON, MG, PHOS, CMP, LIPID, URIC #### [facility] [address] [place] [address] Dr. Sarmad Patino LIVER PROFILEon 03-11-2022 Albumin [Mass/Vol] 3.7 g/dL Normal 3.4-5.0 [facility] Comment on above: Performed By: #### D DAVIDSON, MG, PHOS, CMP, LIPID, URIC #### [facility] [address] [place] [address] Dr. Sarmad Patino Albumin/Globulin [Mass ratio] 1.1 {ratio} Normal [facility] Comment on above: Performed By: #### D DAVIDSON, MG, PHOS, CMP, LIPID, URIC #### [facility] [address] [place] [address] Dr. Sarmad Patino ALP [Catalytic activity/Vol] 124 U/L Critically high 46-116 [facility] Comment on above: Performed By: #### D DAVIDSON, MG, PHOS, CMP, LIPID, URIC #### [facility] [address] [place] [address] Dr. Sarmad Patino ALT [Catalytic activity/Vol] 17 U/L Normal 14-59 [facility] Comment on above: Performed By: #### D DAVIDSON, MG, PHOS, CMP, LIPID, URIC #### [facility] [address] [place] [address] Dr. Sarmad Patino AST [Catalytic activity/Vol] 16 U/L Normal 15-37 [facility] Comment on above: Performed By: #### D DAVIDSON, MG, PHOS, CMP, LIPID, URIC #### [facility] [address] [place] [address] Dr. Sarmad Patino BILI, CONJUGATED 0.2 mg/dL Normal 0.0-0.2 [facility] Comment on above: Performed By: #### D DAVIDSON, MG, PHOS, CMP, LIPID, URIC #### [facility] [address] [address] [address] Sarmad Patino Bilirubin [Mass/Vol] 0.6 mg/dL Normal 0.2-1.0 [facility] Comment on above: Performed By: #### D DAVIDSON, MG, PHOS, CMP, LIPID, URIC #### [facility] [address] [place] [address] Dr. Sarmad Patino Globulin (S) [Mass/Vol] 3.4 g/dL Normal [facility] Comment on above: Performed By: #### D DAVIDSON, MG, PHOS, CMP, LIPID, URIC #### [facility] [address] [address] [address] Sarmad Patino Protein [Mass/Vol] 7.1 g/dL Normal 6.4-8.2 [facility] Comment on above: Performed By: #### D DAVIDSON, MG, PHOS, CMP, LIPID, URIC #### [facility] [address] [place] [address] Dr. Sarmad Patino MAGNESIUMon 03-11-2022 Magnesium [Mass/Vol] 1.6 mg/dL Critically low 1.8-2.4 [facility] Comment on above: Performed By: #### D DAVIDSON, MG, PHOS, CMP, LIPID, URIC #### [facility] [address] [place] [address] Dr. Sarmad Patino PHOSPHORUSon 03-11-2022 Phosphate [Mass/Vol] 3.5 mg/dL Normal 2.6-4.7 [facility] Comment on above: Performed By: #### D DAVIDSON, MG, PHOS, CMP, LIPID, URIC #### [facility] [address] [address] [address] Sarmad Patino URIC ACID SERUMon 03-11-2022 Urate [Mass/Vol] 5.3 mg/dL Normal 2.6-6.0 [facility] Comment on above: Performed By: #### D DAVIDSON, MG, PHOS, CMP, LIPID, URIC #### [facility] [address] [address] [address] Sarmad Patino MYCOPHENOLIC ACIDon 02-19-20 Mycophenolic Acid 1.5 ug/mL Normal 1.0-3.5 [facility] Comment on above: Performed By: #### D DAVIDSON, MG, PHOS, CMP, LIPID, URIC #### [facility] [address] [place] [address] Dr. Sarmad Patino Mycophenolic Acid Glucuronide 32 ug/mL Normal 15-125 [facility] Comment on above: Result Comment: [facility] 's Reference Range: 35-100 mcg/mL. Performed By: #### D DAVIDSON, MG, PHOS, CMP, LIPID, URIC #### [facility] [address] [place] [address] Dr. Sarmad Patino BK VIRUS PCR QUANTon 022 BKV DNA QUANT PCR PLASMA Negative Normal Negative [facility] Comment on above: Result Comment: No B K DNA detected. . The linear range of the assay is 22 - 100,000,000 IU/mL. Performed By: #### D DAVIDSON, MG, PHOS, CMP, LIPID, URIC #### [facility] [address] [place] [address] Dr. Sarmad Patino Log10 BKV DNA Plasma Normal [facility] Comment on above: Performed By: #### D DAVIDSON, MG, PHOS, CMP, LIPID, URIC #### [facility] [address] [place] [address] Dr. Sarmad Patino FK506 (TACROLIMUS) WHOLE BLO ODon 02-11-2022 Tacrolimus (FK506), Blood 4.4 ng/mL Normal 2.0-20.0 [facility] Comment on above: Result Comment: Trou gh (immediately following transplant) 15.0 . Trough (steady state, 2 weeks or more after transplant): 3.0 - 8.0 . Performed by LC-MS/MS technology. Performed By: #### U MAXI, LIPID, MG, CMP, DBIL, PHOS #### [facility] [address] [place] [address] Dr. Sarmad Patino BILIRUBIN CONJUGATED (DIRECT )on 02-08-2022 BILI, CONJUGATED 0.1 mg/dL Normal 0.0-0.2 [facility] Comment on above: Performed By: #### D DAVIDSON, MG, PHOS, CMP, LIPID, URIC #### [facility] [address] [place] [address] Dr. Sarmad Patino CBC AUTO DIFFon 02-08-2022 BASO # 0.0 103/ul Normal 0.0-0.1 [facility] Comment on above: Performed By: #### D DAVIDSON, MG, PHOS, CMP, LIPID, URIC #### [facility] [address] [place] [address] Dr. Sarmad Patino Basophils/100 WBC (Bld) 0.3 % Normal 0.2-2.0 [facility] Comment on above: Performed By: #### D DAVIDSON, MG, PHOS, CMP, LIPID, URIC #### [facility] [address] [place] [address] Dr. Sarmad Patino EO # 0.1 103/ul Normal 0.0-0.7 [facility] Comment on above: Performed By: #### D DAVIDSON, MG, PHOS, CMP, LIPID, URIC #### [facility] [address] [place] [address] Dr. Sarmad Patino Eosinophils/100 WBC (Bld) 1.0 % Normal 0.9-7.0 [facility] Comment on above: Performed By: #### D DAVIDSON, MG, PHOS, CMP, LIPID, URIC #### [facility] [address] [place] [address] Dr. Sarmad Patino Erythrocyte distribution width (RBC) [Ratio] 15.9 % Critically high 11.0-15.0 [facility] Comment on above: Performed By: #### D DAVIDSON, MG, PHOS, CMP, LIPID, URIC #### [facility] [address] [place] [address] Dr. Sarmad Patino Hematocrit (Bld) [Volume fraction] 42.2 % Normal 36.0-48.0 [facility] Comment on above: Performed By: #### D DAVIDSON, MG, PHOS, CMP, LIPID, URIC #### [facility] [address] [place] [address] Dr. Sarmad Patino Hemoglobin (Bld) [Mass/Vol] 13.8 g/dL Normal 12.0-16.0 [facility] Comment on above: Performed By: #### D DAVIDSON, MG, PHOS, CMP, LIPID, URIC #### [facility] [address] [place] [address] Dr. Sarmad Patino IG # 0.10 10e3/ul Critically high 0.00-0.03 [facility] Comment on above: Performed By: #### D DAVIDSON, MG, PHOS, CMP, LIPID, URIC #### [facility] [address] [place] [address] Dr. Sarmad Patino IG % 1.1 % Critically high 0.0-0.5 [facility] Comment on above: Performed By: #### D DAVIDSON, MG, PHOS, CMP, LIPID, URIC #### [facility] [address] [place] [address] Dr. Sarmad Patino LYMPH # 1.2 103/ul Normal 1.2-3.8 [facility] Comment on above: Performed By: #### D DAVIDSON, MG, PHOS, CMP, LIPID, URIC #### [facility] [address] [place] [address] Dr. Sarmad Patino Lymphocytes/100 WBC (Bld) 12.6 % Critically low 20.5-60.0 [facility] Comment on above: Performed By: #### D DAVIDSON, MG, PHOS, CMP, LIPID, URIC #### [facility] [address] [place] [address] Dr. Samrad Patino MANUAL DIFF REQ NO Normal [facility] Comment on above: Performed By: #### D DAVIDSON, MG, PHOS, CMP, LIPID, URIC #### [facility] [address] [address] [address] Sarmad Patino MCH (RBC) [Entitic mass] 28.3 pg Normal 26.7-34.0 [facility] Comment on above: Performed By: #### D DAVIDSON, MG, PHOS, CMP, LIPID, URIC #### [facility] [address] [place] [address] Dr. Samrad Patino MCHC (RBC) [Mass/Vol] 32.7 g/dL Normal 29.9-35.2 [facility] Comment on above: Performed By: #### D DAVIDSON, MG, PHOS, CMP, LIPID, URIC #### [facility] [address] [place] [address] Dr. Sarmad Patino MCV (RBC) [Entitic vol] 86.7 fL Normal 81.0-99.0 [facility] Comment on above: Performed By: #### D DAVIDSON, MG, PHOS, CMP, LIPID, URIC #### [facility] [address] [place] [address] Dr. Sarmad Patino MONO # 1.0 103/ul Critically high 0.3-0.[address] [facility] Comment on above: Performed By: #### D DAVIDSON, MG, PHOS, CMP, LIPID, URIC #### [facility] [address] [place] [address] Dr. Sarmad Patino Monocytes/100 WBC (Bld) 10.7 % Normal 1.7-12.0 [facility] Comment on above: Performed By: #### D DAVIDSON, MG, PHOS, CMP, LIPID, URIC #### [facility] [address] [place] [address] Dr. Sarmad Patino NEUT # 6.9 103/ul Critically high 1.4-6.[address] [facility] Comment on above: Performed By: #### D DVAIDSON, MG, PHOS, CMP, LIPID, URIC #### [facility] [address] [place] [address] Dr. Sarmad Patino Neutrophils/100 WBC (Bld) 74.3 % Normal 43.0-75.0 [facility] Comment on above: Performed By: #### D DAVIDSON, MG, PHOS, CMP, LIPID, URIC #### [facility] [address] [address] [address] Sarmad Patino Platelet mean volume (Bld) [Entitic vol] 11.1 fL Normal 9.5-13.5 [facility] Comment on above: Performed By: #### D DAVIDSON, MG, PHOS, CMP, LIPID, URIC #### [facility] [address] [address] [address] Sarmad Patino PLT 307 103/ul Normal 150-450 [facility] Comment on above: Performed By: #### D DAVIDSON, MG, PHOS, CMP, LIPID, URIC #### [facility] [address] [place] [address] Dr. Sarmad Patino RBC 4.87 106/ul Normal 4.20-5.40 [facility] Comment on above: Performed By: #### D DAVIDSON, MG, PHOS, CMP, LIPID, URIC #### [facility] [address] [address] [address] Sarmad Patino WBC 9.3 103/ul Normal 4.0-11.0 [facility] Comment on above: Performed By: #### D DAVIDSON, MG, PHOS, CMP, LIPID, URIC #### [facility] [address] [place] [address] Dr. Sarmad Patino GLYCOHEMOGLOBIN A1Con 2021 ADA RECOMMENDATION SEE BELOW Normal [facility] Comment on above: Result Comment: ADA RECOMMENDED LIMIT 4.0 - 6.0 ADA THERAPEUTIC TARGET < 7.0 ACTION SUGGESTED > 7.0 Performed By: #### D DAVIDSON, MG, PHOS, CMP, LIPID, URIC #### [facility] [address] [place] [address] Dr. Sarmad Patino Glucose [Mass/Vol] 134 mg/dL Normal [facility] Comment on above: Performed By: #### D DAVIDSON, MG, PHOS, CMP, LIPID, URIC #### [facility] [address] [place] [address] Dr. Sarmad Patino HbA1c (Bld) [Mass fraction] 6.3 % Critically high 4.5-6.2 [facility] Comment on above: Performed By: #### D DAVIDSON, MG, PHOS, CMP, LIPID, URIC #### [facility] [address] [address] [address] Sarmad Patino LIPID PROFILEon 02-08-2022 CHOL-HDL RATIO NORM SEE BELOW Normal [facility] Comment on above: Result Comment: 3.3 - 4.4 LOW RISK 4.4 - 7.1 AVERAGE RISK 7.1 - 11.0 MODERATE RISK >11.0 HIGH RISK Performed By: #### D DAVIDSON, MG, PHOS, CMP, LIPID, URIC #### [facility] [address] [address] [address] Sarmad Patino Cholesterol [Mass/Vol] 180 mg/dL Normal <=200 [facility] Comment on above: Performed By: #### D DAVIDSON, MG, PHOS, CMP, LIPID, URIC #### [facility] [address] [address] [address] Sarmad Patino Cholesterol in HDL [Mass/Vol] 58 mg/dL Normal 40-60 [facility] Comment on above: Performed By: #### D DAVIDSON, MG, PHOS, CMP, LIPID, URIC #### [facility] [address] [address] [address] Sarmad Patino Cholesterol in LDL [Mass/Vol] 86.6 mg/dL Normal [facility] Comment on above: Performed By: #### D DAVIDSON, MG, PHOS, CMP, LIPID, URIC #### [facility] [address] [address] [address] Sarmad Patino Cholesterol.total/Cho lesterol in HDL [Mass ratio] 3.1 {ratio} Normal [facility] Comment on above: Performed By: #### D DAVIDSON, MG, PHOS, CMP, LIPID, URIC #### [facility] [address] [address] [address] Sarmad Patino HDL NORMAL > or = 60 mg/dl - LO W CARDIOVASCULAR RISK <40 mg/dl - HIGH CARDIOVASCULAR RISK Normal [facility] Comment on above: Performed By: #### D DAVIDSON, MG, PHOS, CMP, LIPID, URIC #### [facility] [address] [address] [address] Sarmad Patino LDL CALC NORMAL SEE BELOW Normal [facility] Comment on above: Result Comment: <100 mg/dl OPTIMAL 100 - 129 mg/dl NEAR OR ABOVE OPTIMAL 130 - 159 mg/dl BORDERLINE HIGH 160 - 189 mg/dl HIGH >190 mg/dl VERY HIGH Performed By: #### D DAVIDSON, MG, PHOS, CMP, LIPID, URIC #### [facility] [address] [address] [address] Sarmad Patino Triglyceride [Mass/Vol] 177 mg/dL Critically high <=150 [facility] Comment on above: Performed By: #### D DAVIDSON, MG, PHOS, CMP, LIPID, URIC #### [facility] [address] [place] [address] Dr. Sarmad Patino VLDL CALC 35.4 mg/dL Normal [facility] Comment on above: Performed By: #### D DAVIDSON, MG, PHOS, CMP, LIPID, URIC #### [facility] [address] [place] [address] Dr. Sarmad Patino MAGNESIUMon 02-08-2022 Magnesium [Mass/Vol] 1.8 mg/dL Normal 1.8-2.4 [facility] Comment on above: Performed By: #### D DAVIDSON, MG, PHOS, CMP, LIPID, URIC #### [facility] [address] [place] [address] Dr. Sarmad Patino PHOSPHORUSon 02-08-2022 Phosphate [Mass/Vol] 3.3 mg/dL Normal 2.6-4.7 [facility] Comment on above: Performed By: #### D DAVIDSON, MG, PHOS, CMP, LIPID, URIC #### [facility] [address] [place] [address] Dr. Sarmad Patino PROF 14(COMP METB)on 022 Albumin [Mass/Vol] 3.8 g/dL Normal 3.4-5.0 [facility] Comment on above: Performed By: #### D DAVIDSON, MG, PHOS, CMP, LIPID, URIC #### [facility] [address] [place] [address] Dr. Sarmad Patino Albumin/Globulin [Mass ratio] 1.3 {ratio} Normal [facility] Comment on above: Performed By: #### D DAVIDSON, MG, PHOS, CMP, LIPID, URIC #### [facility] [address] [place] [address] Dr. Sarmad Patino ALP [Catalytic activity/Vol] 144 U/L Critically high 46-116 [facility] Comment on above: Performed By: #### D DAVIDSON, MG, PHOS, CMP, LIPID, URIC #### [facility] [address] [place] [address] Dr. Sarmad Patino ALT [Catalytic activity/Vol] 24 U/L Normal 14-59 [facility] Comment on above: Performed By: #### D DAVIDSON, MG, PHOS, CMP, LIPID, URIC #### [facility] [address] [place] [address] Dr. Sarmad Patino Anion gap [Moles/Vol] 13.7 mmol/L Normal [facility] Comment on above: Performed By: #### D DAVIDSON, MG, PHOS, CMP, LIPID, URIC #### [facility] [address] [place] [address] Dr. Sarmad Patino AST [Catalytic activity/Vol] 19 U/L Normal 15-37 [facility] Comment on above: Performed By: #### D DAVIDSON, MG, PHOS, CMP, LIPID, URIC #### [facility] [address] [place] [address] Dr. Sarmad Patino Bilirubin [Mass/Vol] 0.5 mg/dL Normal 0.2-1.0 [facility] Comment on above: Performed By: #### D DAVIDSON, MG, PHOS, CMP, LIPID, URIC #### [facility] [address] [place] [address] Dr. Sarmad Patino Calcium [Mass/Vol] 9.6 mg/dL Normal 8.5-10.1 [facility] Comment on above: Performed By: #### D DAVIDSON, MG, PHOS, CMP, LIPID, URIC #### [facility] [address] [address] [address] Sarmad Patino Chloride [Moles/Vol] 103 mmol/L Normal 98-107 [facility] Comment on above: Performed By: #### D DAVIDSON, MG, PHOS, CMP, LIPID, URIC #### [facility] [address] [address] [address] Sarmad Patino CO2 [Moles/Vol] 26.6 mmol/L Normal 21.0-32.0 [facility] Comment on above: Performed By: #### D DAVIDSON, MG, PHOS, CMP, LIPID, URIC #### [facility] [address] [address] [address] Sarmad Patino Creatinine [Mass/Vol] 0.75 mg/dL Normal 0.55-1.02 [facility] Comment on above: Performed By: #### D DAVIDSON, MG, PHOS, CMP, LIPID, URIC #### [facility] [address] [address] [address] Sarmad Patino EGFR-AF DJIBOUTIAN >60 Normal >=60 [facility] Comment on above: Performed By: #### D DAVIDSON, MG, PHOS, CMP, LIPID, URIC #### [facility] [address] [place] [address] Dr. Sarmad Patino EGFR-NON AF DJIBOUTIAN >60 Normal >=60 [facility] Comment on above: Performed By: #### D DAVIDSON, MG, PHOS, CMP, LIPID, URIC #### [facility] [address] [address] [address] Sarmad Patino Globulin (S) [Mass/Vol] 3.0 g/dL Normal [facility] Comment on above: Performed By: #### D DAVIDSON, MG, PHOS, CMP, LIPID, URIC #### [facility] [address] [place] [address] Dr. Sarmad Patino Glucose [Mass/Vol] 99 mg/dL Normal 74-106 [facility] Comment on above: Performed By: #### D DAVIDSON, MG, PHOS, CMP, LIPID, URIC #### [facility] [address] [place] [address] Dr. Sarmad Patino Potassium [Moles/Vol] 4.3 mmol/L Normal 3.5-5.1 [facility] Comment on above: Performed By: #### D DAVIDSON, MG, PHOS, CMP, LIPID, URIC #### [facility] [address] [place] [address] Dr. Sarmad Patino Protein [Mass/Vol] 6.8 g/dL Normal 6.4-8.2 [facility] Comment on above: Performed By: #### D DAVIDSON, MG, PHOS, CMP, LIPID, URIC #### [facility] [address] [place] [address] Dr. Sarmad Patino Sodium [Moles/Vol] 139 mmol/L Normal 136-145 [facility] Comment on above: Performed By: #### D DAVIDSON, MG, PHOS, CMP, LIPID, URIC #### [facility] [address] [place] [address] Dr. Sarmad Patino Urea nitrogen [Mass/Vol] 16.0 mg/dL Normal 7.0-18.0 [facility] Comment on above: Performed By: #### D DAVIDSON, MG, PHOS, CMP, LIPID, URIC #### [facility] [address] [place] [address] Dr. Sarmad Patino Urea nitrogen/Creatinine [Mass ratio] 21.3 mg/mg Normal [facility] Comment on above: Performed By: #### D DAVIDSON, MG, PHOS, CMP, LIPID, URIC #### [facility] [address] [place] [address] Dr. Sarmad Patino URIC ACID SERUMon 02-08-2022 Urate [Mass/Vol] 5.4 mg/dL Normal 2.6-6.0 [facility] Comment on above: Performed By: #### D DAVIDSON, MG, PHOS, CMP, LIPID, URIC #### [facility] [address] [place] [address] Dr. Sarmad Patino BK VIRUS PCR QUANTon 022 BKV DNA QUANT PCR PLASMA 27 IU/mL Normal Negative [facility] Comment on above: Result Comment: The linear range of the assay is 22 - 100,000,000 IU/mL. Performed By: #### D DAVIDSON, MG, PHOS, CMP, LIPID, URIC #### [facility] [address] [place] [address] Dr. Sarmad Patino Log10 BKV DNA Plasma 1.431 log10 IU/mL Normal [facility] Comment on above: Performed By: #### D DAVIDSON, MG, PHOS, CMP, LIPID, URIC #### [facility] [address] [place] [address] Dr. Sarmad Patino FK506 (TACROLIMUS) WHOLE BLO ODon 01-30-2022 Tacrolimus (FK506), Blood 6.5 ng/mL Normal 2.0-20.0 [facility] Comment on above: Result Comment: Trou gh (immediately following transplant) 15.0 . Trough (steady state, 2 weeks or more after transplant): 3.0 - 8.0 . Performed by LC-MS/MS technology. Performed By: #### D DAVIDSON, MG, PHOS, CMP, LIPID, URIC #### [facility] [address] [place] [address] Dr. Sarmad Patino RAPAMUNE(SIROLIMUS)on 2021 Rapamune(Sirolimus), whole blood 9.9 ng/mL Normal 3.0-20.0 [facility] Comment on above: Result Comment: Perf ormed by LC/MS-MS technology . This test was developed and its performance characteristics determined by [employer]. It has not been cleared or approved by the Food and Drug Administration. Performed By: #### D DAVIDSON, MG, PHOS, CMP, LIPID, URIC #### [facility] [address] [place] [address] Dr. Sarmad Patino BILIRUBIN CONJUGATED (DIRECT )on 01-28-2022 BILI, CONJUGATED 0.1 mg/dL Normal 0.0-0.2 [facility] Comment on above: Performed By: #### D DAVIDSON, MG, PHOS, CMP, LIPID, URIC #### [facility] [address] [place] [address] Dr. Sarmad Patino CBC AUTO DIFFon 01-28-2022 BASO # 0.0 103/ul Normal 0.0-0.1 [facility] Comment on above: Performed By: #### D DAVIDSON, MG, PHOS, CMP, LIPID, URIC #### [facility] [address] [place] [address] Dr. Sarmad Patino Basophils/100 WBC (Bld) 0.3 % Normal 0.2-2.0 [facility] Comment on above: Performed By: #### D DAVIDSON, MG, PHOS, CMP, LIPID, URIC #### [facility] [address] [place] [address] Dr. Sarmad Patino EO # 0.2 103/ul Normal 0.0-0.7 [facility] Comment on above: Performed By: #### D DAVIDSON, MG, PHOS, CMP, LIPID, URIC #### [facility] [address] [place] [address] Dr. Sarmad Patino Eosinophils/100 WBC (Bld) 3.1 % Normal 0.9-7.0 [facility] Comment on above: Performed By: #### D DAVIDSON, MG, PHOS, CMP, LIPID, URIC #### [facility] [address] [place] [address] Dr. Sarmad Patino Erythrocyte distribution width (RBC) [Ratio] 15.4 % Critically high 11.0-15.0 [facility] Comment on above: Performed By: #### D DAVIDSON, MG, PHOS, CMP, LIPID, URIC #### [facility] [address] [place] [address] Dr. Sarmad Patino Hematocrit (Bld) [Volume fraction] 42.6 % Normal 36.0-48.0 [facility] Comment on above: Performed By: #### D DAVIDSON, MG, PHOS, CMP, LIPID, URIC #### [facility] [address] [place] [address] Dr. Sarmad Patino Hemoglobin (Bld) [Mass/Vol] 14.0 g/dL Normal 12.0-16.0 [facility] Comment on above: Performed By: #### D DAVIDSON, MG, PHOS, CMP, LIPID, URIC #### [facility] [address] [place] [address] Dr. Sarmad Patino IG # 0.05 10e3/ul Critically high 0.00-0.03 [facility] Comment on above: Performed By: #### D DAVIDSON, MG, PHOS, CMP, LIPID, URIC #### [facility] [address] [place] [address] Dr. Sarmad Patino IG % 0.7 % Critically high 0.0-0.[address] [facility] Comment on above: Performed By: #### D DAVIDSON, MG, PHOS, CMP, LIPID, URIC #### [facility] [address] [place] [address] Dr. Sarmad Patino LYMPH # 1.1 103/ul Critically low 1.2-3.[address] [facility] Comment on above: Performed By: #### D DAVIDSON, MG, PHOS, CMP, LIPID, URIC #### [facility] [address] [place] [address] Dr. Sarmad Patino Lymphocytes/100 WBC (Bld) 15.8 % Critically low 20.5-60.0 [facility] Comment on above: Performed By: #### D DAVIDSON, MG, PHOS, CMP, LIPID, URIC #### [facility] [address] [place] [address] Dr. Sarmad Patino MANUAL DIFF REQ NO Normal [facility] Comment on above: Performed By: #### D DAVIDSON, MG, PHOS, CMP, LIPID, URIC #### [facility] [address] [place] [address] Dr. Sarmad Patino MCH (RBC) [Entitic mass] 28.3 pg Normal 26.7-34.0 [facility] Comment on above: Performed By: #### D DAVIDSON, MG, PHOS, CMP, LIPID, URIC #### [facility] [address] [place] [address] Dr. Sarmad Patino MCHC (RBC) [Mass/Vol] 32.9 g/dL Normal 29.9-35.2 [facility] Comment on above: Performed By: #### D DAVIDSON, MG, PHOS, CMP, LIPID, URIC #### [facility] [address] [place], [place] [id number] Dr. Sarmad Patino MCV (RBC) [Entitic vol] 86.2 fL Normal 81.0-99.0 [facility] Comment on above: Performed By: #### D DAVIDSON, MG, PHOS, CMP, LIPID, URIC #### [facility] [address] [place] [address] Dr. Sarmad Patino MONO # 0.8 103/ul Normal 0.3-0.8 [facility] Comment on above: Performed By: #### D DAVIDSON, MG, PHOS, CMP, LIPID, URIC #### [facility] [address] [place] [address] Dr. Sarmad Patino Monocytes/100 WBC (Bld) 11.0 % Normal 1.7-12.0 [facility] Comment on above: Performed By: #### D DAVIDSON, MG, PHOS, CMP, LIPID, URIC #### [facility] [address] [place] [address] Dr. Samrad Patino NEUT # 4.8 103/ul Normal 1.4-6.5 [facility] Comment on above: Performed By: #### D DAVIDSON, MG, PHOS, CMP, LIPID, URIC #### [facility] [address] [place] [address] Dr. Sarmad Patino Neutrophils/100 WBC (Bld) 69.1 % Normal 43.0-75.0 [facility] Comment on above: Performed By: #### D DAVIDSON, MG, PHOS, CMP, LIPID, URIC #### [facility] [address] [place] [address] Dr. Sarmad Patino Platelet mean volume (Bld) [Entitic vol] 10.8 fL Normal 9.5-13.5 [facility] Comment on above: Performed By: #### D DAVIDSON, MG, PHOS, CMP, LIPID, URIC #### [facility] [address] [place] [address] Dr. Sarmad Patino PLT 208 103/ul Normal 150-450 [facility] Comment on above: Performed By: #### D DAVIDSON, MG, PHOS, CMP, LIPID, URIC #### [facility] [address] [address] [address] Sarmad Patino RBC 4.94 106/ul Normal 4.20-5.40 [facility] Comment on above: Performed By: #### D DAVIDSON, MG, PHOS, CMP, LIPID, URIC #### [facility] [address] [address] [address] Sarmad Patino WBC 7.0 103/ul Normal 4.0-11.0 [facility] Comment on above: Performed By: #### D DAVIDSON, MG, PHOS, CMP, LIPID, URIC #### [facility] [address] [address] [address] Sarmad Patino GLYCOHEMOGLOBIN A1Con 2021 ADA RECOMMENDATION SEE BELOW Normal [facility] Comment on above: Result Comment: ADA RECOMMENDED LIMIT 4.0 - 6.0 ADA THERAPEUTIC TARGET < 7.0 ACTION SUGGESTED > 7.0 Performed By: #### D DAVIDSON, MG, PHOS, CMP, LIPID, URIC #### [facility] [address] [address] [address] Sarmad Patino Glucose [Mass/Vol] 137 mg/dL Normal [facility] Comment on above: Performed By: #### D DAVIDSON, MG, PHOS, CMP, LIPID, URIC #### [facility] [address] [place] [address] Dr. Sarmad Patino HbA1c (Bld) [Mass fraction] 6.4 % Critically high 4.5-6.2 [facility] Comment on above: Performed By: #### D DAVIDSON, MG, PHOS, CMP, LIPID, URIC #### [facility] [address] [place] [address] Dr. Sarmad Patino LIPID PROFILEon 01-28-2022 CHOL-HDL RATIO NORM SEE BELOW Normal [facility] Comment on above: Result Comment: 3.3 - 4.4 LOW RISK 4.4 - 7.1 AVERAGE RISK 7.1 - 11.0 MODERATE RISK >11.0 HIGH RISK Performed By: #### D DAVIDSON, MG, PHOS, CMP, LIPID, URIC #### [facility] [address] [place] [address] Dr. Sarmad Patino Cholesterol [Mass/Vol] 209 mg/dL Critically high <=200 [facility] Comment on above: Performed By: #### D DAVIDSON, MG, PHOS, CMP, LIPID, URIC #### [facility] [address] [address] [address] Sarmad Patino Cholesterol in HDL [Mass/Vol] 59 mg/dL Normal 40-60 [facility] Comment on above: Performed By: #### D DAVIDSON, MG, PHOS, CMP, LIPID, URIC #### [facility] [address] [address] [address] Sarmad Patino Cholesterol in LDL [Mass/Vol] 100.4 mg/dL Normal [facility] Comment on above: Performed By: #### D DAVIDSON, MG, PHOS, CMP, LIPID, URIC #### [facility] [address] [address] [address] Sarmad Patino Cholesterol.total/Cho lesterol in HDL [Mass ratio] 3.5 {ratio} Normal [facility] Comment on above: Performed By: #### D DAVIDSON, MG, PHOS, CMP, LIPID, URIC #### [facility] [address] [address] [address] Sarmad Patino HDL NORMAL > or = 60 mg/dl - LO W CARDIOVASCULAR RISK <40 mg/dl - HIGH CARDIOVASCULAR RISK Normal [facility] Comment on above: Performed By: #### D DAVIDSON, MG, PHOS, CMP, LIPID, URIC #### [facility] [address] [address] [address] Sarmad Patino LDL CALC NORMAL SEE BELOW Normal [facility] Comment on above: Result Comment: <100 mg/dl OPTIMAL 100 - 129 mg/dl NEAR OR ABOVE OPTIMAL 130 - 159 mg/dl BORDERLINE HIGH 160 - 189 mg/dl HIGH >190 mg/dl VERY HIGH Performed By: #### D DAVIDSON, MG, PHOS, CMP, LIPID, URIC #### [facility] [address] [address] [address] Sarmad Patino Triglyceride [Mass/Vol] 248 mg/dL Critically high <=150 [facility] Comment on above: Performed By: #### D DAVIDSON, MG, PHOS, CMP, LIPID, URIC #### [facility] [address] [address] [address] Sarmad Patino VLDL CALC 49.6 mg/dL Normal [facility] Comment on above: Performed By: #### D DAVIDSON, MG, PHOS, CMP, LIPID, URIC #### [facility] [address] [address] [address] Sarmad Patino MAGNESIUMon 01-28-2022 Magnesium [Mass/Vol] 1.6 mg/dL Critically low 1.8-2.4 [facility] Comment on above: Performed By: #### D DAVIDSON, MG, PHOS, CMP, LIPID, URIC #### [facility] [address] [place] [address] Dr. Sarmad Patino PHOSPHORUSon 01-28-2022 Phosphate [Mass/Vol] 2.7 mg/dL Normal 2.6-4.7 [facility] Comment on above: Performed By: #### D DAVIDSON, MG, PHOS, CMP, LIPID, URIC #### [facility] [address] [place] [address] Dr. Sarmad Patino PROF 14(COMP METB)on 022 Albumin [Mass/Vol] 3.3 g/dL Critically low 3.4-5.0 [facility] Comment on above: Performed By: #### D DAVIDSON, MG, PHOS, CMP, LIPID, URIC #### [facility] [address] [address] [address] Sarmad Patino Albumin/Globulin [Mass ratio] 0.9 {ratio} Normal [facility] Comment on above: Performed By: #### D DAVIDSON, MG, PHOS, CMP, LIPID, URIC #### [facility] [address] [address] [address] Sarmad Patino ALP [Catalytic activity/Vol] 124 U/L Critically high 46-116 [facility] Comment on above: Performed By: #### D DAVIDSON, MG, PHOS, CMP, LIPID, URIC #### [facility] [address] [address] [address] Sarmad Patino ALT [Catalytic activity/Vol] 28 U/L Normal 14-59 [facility] Comment on above: Performed By: #### D DAVIDSON, MG, PHOS, CMP, LIPID, URIC #### [facility] [address] [address] [address] Sarmad Patino Anion gap [Moles/Vol] 12.0 mmol/L Normal Th [facility] Comment on above: Performed By: #### D DAVIDSON, MG, PHOS, CMP, LIPID, URIC #### [facility] [address] [address] [address] Sarmad Patino AST [Catalytic activity/Vol] 20 U/L Normal 15-37 [facility] Comment on above: Performed By: #### D DAVIDSON, MG, PHOS, CMP, LIPID, URIC #### [facility] [address] [place] [address] Dr. Sarmad Patino Bilirubin [Mass/Vol] 0.5 mg/dL Normal 0.2-1.0 [facility] Comment on above: Performed By: #### D DAVIDSON, MG, PHOS, CMP, LIPID, URIC #### [facility] [address] [place] [address] Dr. Sarmad Patino Calcium [Mass/Vol] 9.1 mg/dL Normal 8.5-10.1 [facility] Comment on above: Performed By: #### D DAVIDSON, MG, PHOS, CMP, LIPID, URIC #### [facility] [address] [place] [address] Dr. Sarmad Patino Chloride [Moles/Vol] 104 mmol/L Normal 98-107 [facility] Comment on above: Performed By: #### D DAVIDSON, MG, PHOS, CMP, LIPID, URIC #### [facility] [address] [place] [address] Dr. Sarmad Patino CO2 [Moles/Vol] 25.7 mmol/L Normal 21.0-32.0 [facility] Comment on above: Performed By: #### D DAVIDSON, MG, PHOS, CMP, LIPID, URIC #### [facility] [address] [address] [address] Sarmad Patino Creatinine [Mass/Vol] 0.77 mg/dL Normal 0.55-1.02 [facility] Comment on above: Performed By: #### D DAVIDSON, MG, PHOS, CMP, LIPID, URIC #### [facility] [address] [address] [address] Sarmad Patino EGFR-AF DJIBOUTIAN >60 Normal >=60 [facility] Comment on above: Performed By: #### D DAVIDSON, MG, PHOS, CMP, LIPID, URIC #### [facility] [address] [address] [address] Sarmad Patino EGFR-NON AF DJIBOUTIAN >60 Normal >=60 [facility] Comment on above: Performed By: #### D DAVIDSON, MG, PHOS, CMP, LIPID, URIC #### [facility] [address] [address] [address] Sarmad Patino Globulin (S) [Mass/Vol] 3.7 g/dL Normal [facility] Comment on above: Performed By: #### D DAVIDSON, MG, PHOS, CMP, LIPID, URIC #### [facility] [address] [address] [address] Sarmad Patino Glucose [Mass/Vol] 108 mg/dL Critically high 74-106 [facility] Comment on above: Performed By: #### D DAVIDSON, MG, PHOS, CMP, LIPID, URIC #### [facility] [address] [place] [address] Dr. Sarmad Patino Potassium [Moles/Vol] 3.7 mmol/L Normal 3.5-5.1 [facility] Comment on above: Performed By: #### D DAVIDSON, MG, PHOS, CMP, LIPID, URIC #### [facility] [address] [address] [address] Sarmad Patino Protein [Mass/Vol] 7.0 g/dL Normal 6.4-8.2 [facility] Comment on above: Performed By: #### D DAVIDSON, MG, PHOS, CMP, LIPID, URIC #### [facility] [address] [address] [address] Sarmad Patino Sodium [Moles/Vol] 138 mmol/L Normal 136-145 [facility] Comment on above: Performed By: #### D DAVIDSON, MG, PHOS, CMP, LIPID, URIC #### [facility] [address] [address] [address] Sarmad Patino Urea nitrogen [Mass/Vol] 15.0 mg/dL Normal 7.0-18.0 [facility] Comment on above: Performed By: #### D DAVIDSON, MG, PHOS, CMP, LIPID, URIC #### [facility] [address] [address] [address] Sarmad Patino Urea nitrogen/Creatinine [Mass ratio] 19.5 mg/mg Normal [facility] Comment on above: Performed By: #### D DAVIDSON, MG, PHOS, CMP, LIPID, URIC #### [facility] [address] [address] [address] Sarmad Patino URIC ACID SERUMon 01-28-2022 Urate [Mass/Vol] 4.3 mg/dL Normal 2.6-6.0 [facility] Comment on above: Performed By: #### D DAVIDSON, MG, PHOS, CMP, LIPID, URIC #### [facility] [address] [address] [address] Sarmad Patino Quick Strepon 01-12-2022 S. pyogenes Org specific cx Ql (Throat) Negative [facility] Other Quick Strep [facility] H-art ([facility]) Other XR CHEST 1 Von 01-07-2022 XR [...] ARTEMIO BERNARD Date: 2022-01-07 15:00 Normal [facility] CBC W MANUAL DIFFon 01-04-20 22 ATYPICAL LYMPH # 1.40 103/ul Normal The [facility] Comment on above: Performed By: #### D DAVIDSON, MG, PHOS, CMP, LIPID, URIC #### [facility] [address] [address] [address] Sarmad Patino ATYPICAL LYMPH % 10 % Normal The [facility] Comment on above: Performed By: #### D DAVIDSON, MG, PHOS, CMP, LIPID, URIC #### [facility] [address] [address] [address] Sarmad Patino BAND # 0.6 103/ul Critically high 0.0-0.[address] [facility] Comment on above: Performed By: #### D DAVIDSON, MG, PHOS, CMP, LIPID, URIC #### [facility] [address] [address] [address] Sarmad Patino BAND % 4 % Normal 0-5 [facility] Comment on above: Performed By: #### D DAVIDSON, MG, PHOS, CMP, LIPID, URIC #### [facility] [address] [address] [address] Sarmad Patino BASOM # 0.00 103/ul Normal 0.00-0.10 [facility] Comment on above: Performed By: #### D DAVIDSON, MG, PHOS, CMP, LIPID, URIC #### [facility] [address] [address] [address] Sarmad Patino BASOM % 0.0 % Critically low 0.2-2.[address] [facility] Comment on above: Performed By: #### D DAVIDSON, MG, PHOS, CMP, LIPID, URIC #### [facility] [address] [address] [address] Sarmad Patino BLAST # Normal [facility] Comment on above: Performed By: #### D DAVIDSON, MG, PHOS, CMP, LIPID, URIC #### [facility] [address] [address] [address] Sarmad Patino BLAST % Normal [facility] Comment on above: Performed By: #### D DAVIDSON, MG, PHOS, CMP, LIPID, URIC #### [facility] [address] [address] [address] Sarmad Patino CORRECTED WBC Normal 4.0-11.0 [facility] Comment on above: Performed By: #### D DAVIDSON, MG, PHOS, CMP, LIPID, URIC #### [facility] [address] [address] [address] Sarmad Patino EOS # 0.14 103/ul Normal 0.00-0.70 [facility] Comment on above: Performed By: #### D DAVIDSON, MG, PHOS, CMP, LIPID, URIC #### [facility] [address] [place] [address] Dr. Sarmad Patino EOS% 1.0 % Normal 0.9-7.0 [facility] Comment on above: Performed By: #### D DAVIDSON, MG, PHOS, CMP, LIPID, URIC #### [facility] [address] [place] [address] Dr. Sarmad Patino HCT 42.8 % Normal 36.0-48.0 [facility] Comment on above: Performed By: #### D DAVIDSON, MG, PHOS, CMP, LIPID, URIC #### [facility] [address] [place] [address] Dr. Sarmad Patino HGB 14.2 g/dl Normal 12.0-16.0 [facility] Comment on above: Performed By: #### D DAVIDSON, MG, PHOS, CMP, LIPID, URIC #### [facility] [address] [place] [address] Dr. Sarmad Patino LYMPHM # 0.00 103/ul Critically low 1.20-3.80 [facility] Comment on above: Performed By: #### D DAVIDSON, MG, PHOS, CMP, LIPID, URIC #### [facility] [address] [place] [address] Dr. Sarmad Patino LYMPHM% 0.0 % Critically low 20.5-60.0 [facility] Comment on above: Performed By: #### D DAVIDSON, MG, PHOS, CMP, LIPID, URIC #### [facility] [address] [address] [address] Sarmad Patino MCH 28.8 pg Normal 26.7-34.0 [facility] Comment on above: Performed By: #### D DAVIDSON, MG, PHOS, CMP, LIPID, URIC #### [facility] [address] [address] [address] Sarmad Patino MCHC 33.2 g/dl Normal 29.9-35.2 [facility] Comment on above: Performed By: #### D DAVIDSON, MG, PHOS, CMP, LIPID, URIC #### [facility] [address] [address] [address] Sarmad Patino MCV 86.8 fL Normal 81.0-99.0 [facility] Comment on above: Performed By: #### D DAVIDSON, MG, PHOS, CMP, LIPID, URIC #### [facility] [address] [address] [address] Sarmad Patino METAMYELOCYTE # Normal The [facility] Comment on above: Performed By: #### D DAVIDSON, MG, PHOS, CMP, LIPID, URIC #### [facility] [address] [address] [address] Sarmad Patino METAMYELOCYTE % Normal The [facility] Comment on above: Performed By: #### D DAVIDSON, MG, PHOS, CMP, LIPID, URIC #### [facility] [address] [address] [address] Sarmad Patino MONOM# 0.84 103/ul Critically high 0.30-0.80 The [facility] Comment on above: Performed By: #### D DAVIDSON, MG, PHOS, CMP, LIPID, URIC #### [facility] [address] [address] [address] Sarmad Patino MONOM% 6.0 % Normal 1.7-12.0 [facility] Comment on above: Performed By: #### D DAVIDSON, MG, PHOS, CMP, LIPID, URIC #### [facility] [address] [address] [address] Sarmad Patino MPV 11.5 fL Normal 9.5-13.5 The [facility] Comment on above: Performed By: #### D DAVIDOSN, MG, PHOS, CMP, LIPID, URIC #### [facility] [address] [address] [address] Sarmad Patino MYELOCYTE # 0.3 103/ul Normal [facility] Comment on above: Performed By: #### D DAVIDSON, MG, PHOS, CMP, LIPID, URIC #### [facility] [address] [address] [address] Sarmad Patino MYELOCYTE % 2 % Normal [facility] Comment on above: Performed By: #### D DAVIDSON, MG, PHOS, CMP, LIPID, URIC #### [facility] [address] [place] [address] Dr. Sarmad Patino NRBC Normal [facility] Comment on above: Performed By: #### D DAVIDSON, MG, PHOS, CMP, LIPID, URIC #### [facility] [address] [place] [address] Dr. Sarmad Patino PLT 180 103/ul Normal 150-450 [facility] Comment on above: Performed By: #### D DAVIDSON, MG, PHOS, CMP, LIPID, URIC #### [facility] [address] [place] [address] Dr. Sarmad Patino RBC 4.93 106/ul Normal 4.20-5.40 [facility] Comment on above: Performed By: #### D DAVIDSON, MG, PHOS, CMP, LIPID, URIC #### [facility] [address] [address] [address] Sarmad Patino RDW 13.9 % Normal 11.0-15.0 [facility] Comment on above: Performed By: #### D DAVIDSON, MG, PHOS, CMP, LIPID, URIC #### [facility] [address] [place] [address] Dr. Sarmad Patino SEG # 10.78 103/ul Critically high 1.40-6.50 [facility] Comment on above: Performed By: #### D DAVIDSON, MG, PHOS, CMP, LIPID, URIC #### [facility] [address] [place] [address] Dr. Sarmad Patino SEG % 77.0 % Critically high 43.0-75.[address] [facility] Comment on above: Performed By: #### D DAVIDSON, MG, PHOS, CMP, LIPID, URIC #### [facility] [id number] Sarmad Patino WBC 14.0 103/ul Critically high 4.0-11.0 The [facility] Comment on above: Performed By: #### D DAVIDSON, MG, PHOS, CMP, LIPID, URIC #### [facility] [address], [place] [address] NECK [address] W [...] middle ear cavities clear. Skull base intact. Auditing Coder spaces normal. Parotid glands normal. Submandibular glands [...] neck mass. Electronically authenticated by: JOSE F WARD Date: 2022-01-03 10:40 Normal [facility]19 [facility]on SARS-CoV-2 (COVID-19) RNA MURALI+probe Ql (Unsp spec) Detected Critically abnormal NOT DETECTED The [facility] Comment on above: Result Comment: This test is not yet approved or cleared by the [place] FDA. When there are no FDA-approved or cleared tests available, and other criteria are met, FDA can make tests available under an emergency access mechanism called an Emergency Use Authorization (EUA). The EUA for this test is supported by the Swimming Instructor of Health and Human Service's declaration that [...] DAVIDSON, MG, PHOS, CMP, LIPID, URIC #### [facility] [address] [place] [address] Dr. Sarmad Patino GROUP A STREP CULTUREon S. pyogenes Ag Ql (Unsp spec) Culture Observations: Negative for Group A Streptococcus Normal [facility] Comment on above: Performed By: #### U MAXI, LIPID, MG, CMP, DBIL, PHOS #### [facility] [address] [address] [address] Sarmad Patino INFLUENZA A AND B AGon 01-03 INFLUENZA A AG Negative Normal NEGATIVE SEE COMMENT [facility] Comment on above: Performed By: #### D DAVIDSON, MG, PHOS, CMP, LIPID, URIC #### [facility] [address] [place] [address] Dr. Sarmad Patino INFLUENZA B AG Negative Normal NEGATIVE SEE COMMENT [facility] Comment on above: Performed By: #### D DAVIDSON, MG, PHOS, CMP, LIPID, URIC #### [facility] [address] [place] [address] Dr. Sarmad Patino INTERNAL CONTROLS Within Normal Limits Normal Wi thin Normal Limits [facility] Comment on above: Performed By: #### D DAVIDSON, MG, PHOS, CMP, LIPID, URIC #### [facility] [address] [address] [address] Sarmad Patino PROF 14(COMP METB)on 022 Albumin [Mass/Vol] 2.5 g/dL Critically low 3.4-5.0 Th e [facility] Comment on above: Performed By: #### U MAXI, LIPID, MG, CMP, DBIL, PHOS #### [facility] [address] [place] [address] Dr. Sarmad Patino Albumin/Globulin [Mass ratio] 0.5 {ratio} Normal [facility] Comment on above: Performed By: #### U MAXI, LIPID, MG, CMP, DBIL, PHOS #### [facility] [address] [place] [address] Dr. Sarmad Patino ALP [Catalytic activity/Vol] 185 U/L Critically high 46-116 [facility] Comment on above: Performed By: #### U MAXI, LIPID, MG, CMP, DBIL, PHOS #### [facility] [address] [place] [address] Dr. Sarmad Patino ALT [Catalytic activity/Vol] 108 U/L Critically high 14-59 [facility] Comment on above: Performed By: #### U MAXI, LIPID, MG, CMP, DBIL, PHOS #### [facility] [address] [address] [address] Sarmad Patino Anion gap [Moles/Vol] 8.3 mmol/L Normal [facility] Comment on above: Performed By: #### U MAXI, LIPID, MG, CMP, DBIL, PHOS #### [facility] [address] [place] [address] Dr. Sarmad Patino AST [Catalytic activity/Vol] 59 U/L Critically high 15-37 [facility] Comment on above: Performed By: #### U MAXI, LIPID, MG, CMP, DBIL, PHOS #### [facility] [address] [place], [place] [id number] Dr. Sarmad Patino Bilirubin [Mass/Vol] 0.6 mg/dL Normal 0.2-1.0 [facility] Comment on above: Performed By: #### U MAXI, LIPID, MG, CMP, DBIL, PHOS #### [facility] [address] [place] [address] Dr. Sarmad Patino Calcium [Mass/Vol] 9.0 mg/dL Normal 8.5-10.1 [facility] Comment on above: Performed By: #### U MAXI, LIPID, MG, CMP, DBIL, PHOS #### [facility] [address] [place] [address] Dr. Sarmad Patino Chloride [Moles/Vol] 100 mmol/L Normal 98-107 [facility] Comment on above: Performed By: #### U MAXI, LIPID, MG, CMP, DBIL, PHOS #### [facility] [address] [place] [address] Dr. Sarmad Patino CO2 [Moles/Vol] 29.0 mmol/L Normal 21.0-32.0 [facility] Comment on above: Performed By: #### U MAXI, LIPID, MG, CMP, DBIL, PHOS #### [facility] [address] [place] [address] Dr. Sarmad Patino Creatinine [Mass/Vol] 1.05 mg/dL Critically high 0.55-1.02 [facility] Comment on above: Performed By: #### U MAXI, LIPID, MG, CMP, DBIL, PHOS #### [facility] [address] [place] [address] Dr. Sarmad Patino EGFR-AF DJIBOUTIAN >60 Normal >=60 The [facility] Comment on above: Performed By: #### U MAXI, LIPID, MG, CMP, DBIL, PHOS #### [facility] [address] [place] [address] Dr. Saramd Patino EGFR-NON AF DJIBOUTIAN 53 mL/min/1.73m2 Critically low >=60 [facility] Comment on above: Performed By: #### U MAXI, LIPID, MG, CMP, DBIL, PHOS #### [facility] [address] [address] [address] Sarmad Patino Globulin (S) [Mass/Vol] 4.6 g/dL Normal [facility] Comment on above: Performed By: #### U MAXI, LIPID, MG, CMP, DBIL, PHOS #### [facility] [address] [place] [address] Dr. Sarmad Patino Glucose [Mass/Vol] 154 mg/dL Critically high 74-106 T [facility] Comment on above: Performed By: #### U MAXI, LIPID, MG, CMP, DBIL, PHOS #### [facility] [address] [place] [address] Dr. Sarmad Patino Potassium [Moles/Vol] 3.3 mmol/L Critically low 3.5-5.1 [facility] Comment on above: Performed By: #### U MAXI, LIPID, MG, CMP, DBIL, PHOS #### [facility] [address] [place] [address] Dr. Sarmad Patino Protein [Mass/Vol] 7.1 g/dL Normal 6.4-8.2 [facility] Comment on above: Performed By: #### U MAXI, LIPID, MG, CMP, DBIL, PHOS #### [facility] [address] [place] [address] Dr. Sarmad Patino Sodium [Moles/Vol] 134 mmol/L Critically low 136-145 Th [facility] Comment on above: Performed By: #### U MAXI, LIPID, MG, CMP, DBIL, PHOS #### [facility] [address] [place] [address] Dr. Sarmad Patino Urea nitrogen [Mass/Vol] 24.0 mg/dL Critically high 7.0-18.0 [facility] Comment on above: Performed By: #### U MAXI, LIPID, MG, CMP, DBIL, PHOS #### [facility] [address] [place] [address] Dr. Sarmad Patino Urea nitrogen/Creatinine [Mass ratio] 22.9 mg/mg Normal [facility] Comment on above: Performed By: #### U MAXI, LIPID, MG, CMP, DBIL, PHOS #### [facility] [address], [place] [address] Dr. Sarmad Patino STREPT SCREENon 01-03-2022 STREP SCREEN A Negative Normal NEGATIVE The [facility] Comment on above: Performed By: #### U MAXI, LIPID, MG, CMP, DBIL, PHOS #### [facility] [address], [place] [address] Dr. Sarmad Patino XR CHEST 2 Von [...] MAYRA WHITESIDE Date: 2022-01-03 03:54 Normal [facility] Quick Strepon 12-28-2021 S. pyogenes Org specific cx Ql (Throat) Negative [facility] Other Quick Strep [facility] Other SARS-CoV-2 (COVID-19) RNA NA A+probe Ql (Resp)on 12-25-2021 SARS-CoV-2 (COVID-19) RNA MURALI+probe Ql (Unsp spec) Negative [facility] Other FK506 (TACROLIMUS) WHOLE BLO ODon 12-08-2021 Tacrolimus (FK506), Blood 6.6 ng/mL Normal 2.0-20.0 [facility] Comment on above: Result Comment: Trou gh (immediately following transplant) 15.0 . Trough (steady state, 2 weeks or more after transplant): 3.0 - 8.0 . Performed by LC-MS/MS technology. Performed By: #### D DAVIDSON, MG, PHOS, CMP, LIPID, URIC #### [facility] [address] [place] [address] Dr. Sarmad Patino RAPAMUNE(SIROLIMUS)on 2021 Rapamune(Sirolimus), whole blood 9.6 ng/mL Normal 3.0-20.0 [facility] Comment on above: Result Comment: Perf ormed by LC/MS-MS technology . This test was developed and its performance characteristics determined by [facility]. It has not been cleared or approved by the Food and Drug Administration. Performed By: #### D DAVIDSON, MG, PHOS, CMP, LIPID, URIC #### [facility] [address] [place] [address] Dr. Sarmad Patino BILIRUBIN CONJUGATED (DIRECT )on 12-05-2021 BILI, CONJUGATED 0.1 mg/dL Normal 0.0-0.2 The [facility] Comment on above: Performed By: #### D DAVIDSON, MG, PHOS, CMP, LIPID, URIC #### [facility] [address] [place] [address] Dr. Sarmad Patino CBC W MANUAL DIFFon 12-06-19 22 ATYPICAL LYMPH # Normal [facility] Comment on above: Performed By: #### D DAVIDSON, MG, PHOS, CMP, LIPID, URIC #### [facility] [address] [place] [address] Dr. Sarmad Patino ATYPICAL LYMPH % Normal [facility] Comment on above: Performed By: #### D DAVIDSON, MG, PHOS, CMP, LIPID, URIC #### [facility] [address] [place] [address] Dr. Sarmad Patino BAND # Normal 0.0-0.3 [facility] Comment on above: Performed By: #### D DAVIDSON, MG, PHOS, CMP, LIPID, URIC #### [facility] [address] [place] [address] Dr. Sarmad Patino BAND % Normal 0-5 [facility] Comment on above: Performed By: #### D DAVIDSON, MG, PHOS, CMP, LIPID, URIC #### [facility] [address] [address] [address] Sarmad Patino BASOM # 0.00 103/ul Normal 0.00-0.10 [facility] Comment on above: Performed By: #### D DAVIDSON, MG, PHOS, CMP, LIPID, URIC #### [facility] [address] [address] [address] Sarmad Patino BASOM % 0.0 % Critically low 0.2-2.0 [facility] Comment on above: Performed By: #### D DAVIDSON, MG, PHOS, CMP, LIPID, URIC #### [facility] [address] [address] [address] Sarmad Patino BLAST # Normal [facility] Comment on above: Performed By: #### D DAVIDSON, MG, PHOS, CMP, LIPID, URIC #### [facility] [address] [place] [address] Dr. Sarmad Patino BLAST % Normal [facility] Comment on above: Performed By: #### D DAVIDSON, MG, PHOS, CMP, LIPID, URIC #### [facility] [address] [place] [address] Dr. Sarmad Patino CORRECTED WBC Normal 4.0-11.0 The [facility] Comment on above: Performed By: #### D DAVIDSON, MG, PHOS, CMP, LIPID, URIC #### [facility] [address] [place] [address] Dr. Sarmad Patino EOS # 0.15 103/ul Normal 0.00-0.70 [facility] Comment on above: Performed By: #### D DAVIDSON, MG, PHOS, CMP, LIPID, URIC #### [facility] [address] [address] [address] Sarmad Patino EOS% 2.0 % Normal 0.9-7.0 [facility] Comment on above: Performed By: #### D DAVIDSON, MG, PHOS, CMP, LIPID, URIC #### [facility] [address] [address] [address] Sarmad Patino HCT 47.5 % Normal 36.0-48.0 [facility] Comment on above: Performed By: #### D DAVIDSON, MG, PHOS, CMP, LIPID, URIC #### [facility] [address] [address] [address] Sarmad Patino HGB 15.6 g/dl Normal 12.0-16.0 [facility] Comment on above: Performed By: #### D DAVIDSON, MG, PHOS, CMP, LIPID, URIC #### [facility] [address] [address] [address] Sarmad Patino LYMPHM # 1.46 103/ul Normal 1.20-3.80 [facility] Comment on above: Performed By: #### D DAVIDSON, MG, PHOS, CMP, LIPID, URIC #### [facility] [address] [place] [address] Dr. Sarmad Patino LYMPHM% 19.0 % Critically low 20.5-60.0 [facility] Comment on above: Performed By: #### D DAVIDSON, MG, PHOS, CMP, LIPID, URIC #### [facility] [address] [place] [address] Dr. Sarmad Patino MCH 28.9 pg Normal 26.7-34.0 [facility] Comment on above: Performed By: #### D DAVIDSON, MG, PHOS, CMP, LIPID, URIC #### [facility] [address] [place] [address] Dr. Sarmad Patino MCHC 32.8 g/dl Normal 29.9-35.2 [facility] Comment on above: Performed By: #### D DAVIDSON, MG, PHOS, CMP, LIPID, URIC #### [facility] [address] [place] [address] Dr. Sarmad Patino MCV 88.1 fL Normal 81.0-99.0 [facility] Comment on above: Performed By: #### D DAVIDSON, MG, PHOS, CMP, LIPID, URIC #### [facility] [address] [place] [address] Dr. Sarmad Patino METAMYELOCYTE # Normal [facility] Comment on above: Performed By: #### D DAVIDSON, MG, PHOS, CMP, LIPID, URIC #### [facility] [address] [address] [address] Sarmad Patino METAMYELOCYTE % Normal [facility] Comment on above: Performed By: #### D DAVIDSON, MG, PHOS, CMP, LIPID, URIC #### [facility] [address] [address] [address] Sarmad Patino MONOM# 0.85 103/ul Critically high 0.30-0.80 [facility] Comment on above: Performed By: #### D DAVIDSON, MG, PHOS, CMP, LIPID, URIC #### [facility] [address] [address] [address] Sarmad Patino MONOM% 11.0 % Normal 1.7-12.0 [facility] Comment on above: Performed By: #### D DAVIDSON, MG, PHOS, CMP, LIPID, URIC #### [facility] [address] [place] [address] Dr. Sarmad Patino MPV 11.3 fL Normal 9.5-13.5 [facility] Comment on above: Performed By: #### D DAVIDSON, MG, PHOS, CMP, LIPID, URIC #### [facility] [address] [place] [address] Dr. Sarmad Patino MYELOCYTE # Normal [facility] Comment on above: Performed By: #### D DAVIDSON, MG, PHOS, CMP, LIPID, URIC #### [facility] [address] [place] [address] Dr. Sarmad Patino MYELOCYTE % Normal [facility] Comment on above: Performed By: #### D DAVIDSON, MG, PHOS, CMP, LIPID, URIC #### [facility] [address] [place] [address] Dr. Sarmad Patino NRBC Normal [facility] Comment on above: Performed By: #### D DAVIDSON, MG, PHOS, CMP, LIPID, URIC #### [facility] [address] [place] [address] Dr. Sarmad Patino PLT 214 103/ul Normal 150-450 [facility] Comment on above: Performed By: #### D DAVIDSON, MG, PHOS, CMP, LIPID, URIC #### [facility] [address] [address] [address] Sarmad Patino RBC 5.39 106/ul Normal 4.20-5.40 [facility] Comment on above: Performed By: #### D DAVIDSON, MG, PHOS, CMP, LIPID, URIC #### [facility] [address] [place] [address] Dr. Sarmad Patino RDW 13.8 % Normal 11.0-15.0 [facility] Comment on above: Performed By: #### D DAVIDSON, MG, PHOS, CMP, LIPID, URIC #### [facility] [address] [place] [address] Dr. Sarmad Patino SEG # 5.24 103/ul Normal 1.40-6.50 [facility] Comment on above: Performed By: #### D DAVIDSON, MG, PHOS, CMP, LIPID, URIC #### [facility] [address] [place] [address] Dr. Sarmad Patino SEG % 68.0 % Normal 43.0-75.0 [facility] Comment on above: Performed By: #### D DAVIDSON, MG, PHOS, CMP, LIPID, URIC #### [facility] [address] [place] [address] Dr. Sarmad Patino WBC 7.7 103/ul Normal 4.0-11.0 [facility] Comment on above: Performed By: #### D DAVIDSON, MG, PHOS, CMP, LIPID, URIC #### [facility] [address] [place] [address] Dr. Sarmad Patino LIPID PROFILEon 12-05-2021 CHOL-HDL RATIO NORM SEE BELOW Normal [facility] Comment on above: Result Comment: 3.3 - 4.4 LOW RISK 4.4 - 7.1 AVERAGE RISK 7.1 - 11.0 MODERATE RISK >11.0 HIGH RISK Performed By: #### D DAVIDSON, MG, PHOS, CMP, LIPID, URIC #### [facility] [address] [place] [address] Dr. Sarmad Patino Cholesterol [Mass/Vol] 170 mg/dL Normal <=200 [facility] Comment on above: Performed By: #### D DAVIDSON, MG, PHOS, CMP, LIPID, URIC #### [facility] [address] [address] [address] Sarmad Patino Cholesterol in HDL [Mass/Vol] 54 mg/dL Normal 40-60 [facility] Comment on above: Performed By: #### D DAVIDSON, MG, PHOS, CMP, LIPID, URIC #### [facility] [address] [address] [address] Sarmad Patino Cholesterol in LDL [Mass/Vol] 92.2 mg/dL Normal [facility] Comment on above: Performed By: #### D DAVIDSON, MG, PHOS, CMP, LIPID, URIC #### [facility] [address] [address] [address] Sarmad Patino Cholesterol.total/Cho lesterol in HDL [Mass ratio] 3.1 {ratio} Normal [facility] Comment on above: Performed By: #### D DAVIDSON, MG, PHOS, CMP, LIPID, URIC #### [facility] [address] [address] [address] Sarmad Patino HDL NORMAL > or = 60 mg/dl - LO W CARDIOVASCULAR RISK <40 mg/dl - HIGH CARDIOVASCULAR RISK Normal [facility] Comment on above: Performed By: #### D DAVIDSON, MG, PHOS, CMP, LIPID, URIC #### [facility] [address] [address] [address] Sarmad Patino LDL CALC NORMAL SEE BELOW Normal [facility] Comment on above: Result Comment: <100 mg/dl OPTIMAL 100 - 129 mg/dl NEAR OR ABOVE OPTIMAL 130 - 159 mg/dl BORDERLINE HIGH 160 - 189 mg/dl HIGH >190 mg/dl VERY HIGH Performed By: #### D DAVIDSON, MG, PHOS, CMP, LIPID, URIC #### [facility] [address] [address] [address] Sarmad Patino Triglyceride [Mass/Vol] 119 mg/dL Normal <=150 [facility] Comment on above: Performed By: #### D DAVIDSON, MG, PHOS, CMP, LIPID, URIC #### [facility] [address] [address] [address] Sarmad Patino VLDL CALC 23.8 mg/dL Normal [facility] Comment on above: Performed By: #### D DAVIDSON, MG, PHOS, CMP, LIPID, URIC #### [facility] [address] [place] [address] Dr. Sarmad Patino MAGNESIUMon 12-05-2021 Magnesium [Mass/Vol] 1.8 mg/dL Normal 1.8-2.4 [facility] Comment on above: Performed By: #### D DAVIDOSN, MG, PHOS, CMP, LIPID, URIC #### [facility] [address] [place] [address] Dr. Sarmad Patino PHOSPHORUSon 12-05-2021 Phosphate [Mass/Vol] 3.8 mg/dL Normal 2.6-4.7 [facility] Comment on above: Performed By: #### D DAVIDSON, MG, PHOS, CMP, LIPID, URIC #### [facility] [address] [place] [address] Dr. Sarmad Patino PROF 14(COMP METB)on 022 Albumin [Mass/Vol] 3.7 g/dL Normal 3.4-5.0 [facility] Comment on above: Performed By: #### D DAVIDSON, MG, PHOS, CMP, LIPID, URIC #### [facility] [address] [place] [address] Dr. Sarmad Patino Albumin/Globulin [Mass ratio] 1.0 {ratio} Normal [facility] Comment on above: Performed By: #### D DAVIDSON, MG, PHOS, CMP, LIPID, URIC #### [facility] [address] [place] [address] Dr. Sarmad Patino ALP [Catalytic activity/Vol] 151 U/L Critically high 46-116 [facility] Comment on above: Performed By: #### D DAVIDSON, MG, PHOS, CMP, LIPID, URIC #### [facility] [address] [place] [address] Dr. Sarmad Patino ALT [Catalytic activity/Vol] 27 U/L Normal 14-59 [facility] Comment on above: Performed By: #### D DAVIDSON, MG, PHOS, CMP, LIPID, URIC #### [facility] [address] [place] [address] Dr. Sarmad Patino Anion gap [Moles/Vol] 14.5 mmol/L Normal [facility] Comment on above: Performed By: #### D DAVIDSON, MG, PHOS, CMP, LIPID, URIC #### [facility] [address] [place] [address] Dr. Sarmad Patino AST [Catalytic activity/Vol] 25 U/L Normal 15-37 [facility] Comment on above: Performed By: #### D DAVIDSON, MG, PHOS, CMP, LIPID, URIC #### [facility] [address] [place] [address] Dr. Sarmad Patino Bilirubin [Mass/Vol] 0.4 mg/dL Normal 0.2-1.0 [facility] Comment on above: Performed By: #### D DAVIDSON, MG, PHOS, CMP, LIPID, URIC #### [facility] [address] [place] [address] Dr. Sarmad Patino Calcium [Mass/Vol] 9.4 mg/dL Normal 8.5-10.1 [facility] Comment on above: Performed By: #### D DAVIDSON, MG, PHOS, CMP, LIPID, URIC #### [facility] [address] [place] [address] Dr. Sarmad Patino Chloride [Moles/Vol] 103 mmol/L Normal 98-107 [facility] Comment on above: Performed By: #### D DAVIDSON, MG, PHOS, CMP, LIPID, URIC #### [facility] [address] [place] [address] Dr. Sarmad Patino CO2 [Moles/Vol] 26.5 mmol/L Normal 21.0-32.0 [facility] Comment on above: Performed By: #### D DAVIDSON, MG, PHOS, CMP, LIPID, URIC #### [facility] [address] [place] [address] Dr. Sarmad Patino Creatinine [Mass/Vol] 0.87 mg/dL Normal 0.55-1.02 [facility] Comment on above: Performed By: #### D DAVIDSON, MG, PHOS, CMP, LIPID, URIC #### [facility] [address] [address] [address] Sarmad Patino EGFR-AF DJIBOUTIAN >60 Normal >=60 [facility] Comment on above: Performed By: #### D DAVIDSON, MG, PHOS, CMP, LIPID, URIC #### [facility] [address] [address] [address] Sarmad Patino EGFR-NON AF DJIBOUTIAN >60 Normal >=60 [facility] Comment on above: Performed By: #### D DAVIDSON, MG, PHOS, CMP, LIPID, URIC #### [facility] [address] [address] [address] Sarmad Patino Globulin (S) [Mass/Vol] 3.8 g/dL Normal [facility] Comment on above: Performed By: #### D DAVIDSON, MG, PHOS, CMP, LIPID, URIC #### [facility] [address] [address] [address] Sarmad Patino Glucose [Mass/Vol] 104 mg/dL Normal 74-106 [facility] Comment on above: Performed By: #### D DAVIDSON, MG, PHOS, CMP, LIPID, URIC #### [facility] [address] [address] [address] Sarmad Patino Potassium [Moles/Vol] 4.0 mmol/L Normal 3.5-5.1 [facility] Comment on above: Performed By: #### D DAVIDSON, MG, PHOS, CMP, LIPID, URIC #### [facility] [address] [address] [address] Sarmad Patino Protein [Mass/Vol] 7.5 g/dL Normal 6.4-8.2 [facility] Comment on above: Performed By: #### D DAVIDSON, MG, PHOS, CMP, LIPID, URIC #### [facility] [address] [address] [address] Sarmad Patino Sodium [Moles/Vol] 140 mmol/L Normal 136-145 [facility] Comment on above: Performed By: #### D DAVIDSON, MG, PHOS, CMP, LIPID, URIC #### [facility] [address] [place] [address] Dr. Sarmad Patino Urea nitrogen [Mass/Vol] 19.0 mg/dL Critically high 7.0-18.0 [facility] Comment on above: Performed By: #### D DAVIDSON, MG, PHOS, CMP, LIPID, URIC #### [facility] [address] [place] [address] Dr. Sarmad Patino Urea nitrogen/Creatinine [Mass ratio] 21.8 mg/mg Normal [facility] Comment on above: Performed By: #### D DAVIDSON, MG, PHOS, CMP, LIPID, URIC #### [facility] [address] [place] [address] Dr. Sarmad Paitno URIC ACID SERUMon 12-05-2021 Urate [Mass/Vol] 5.2 mg/dL Normal 2.6-6.0 [facility] Comment on above: Performed By: #### D DAVIDSON, MG, PHOS, CMP, LIPID, URIC #### [facility] [address] [place] [address] Dr. Sarmad Patino EVEROLIMU, WHOLE BLOODon EVEROLIMUS 7.0 ng/mL Normal 3.0-8.0 [facility] Comment on above: Result Comment: Perf ormed by LC-MS/MS technology. Performed By: #### D DAVIDSON, MG, PHOS, CMP, LIPID, URIC #### [facility] [address] [place] [address] Dr. Sarmad Patino FK506 (TACROLIMUS) WHOLE BLO ODon 11-10-2021 Tacrolimus (FK506), Blood 6.4 ng/mL Normal 2.0-20.0 [facility] Comment on above: Result Comment: Trou gh (immediately following transplant) 15.0 . Trough (steady state, 2 weeks or more after transplant): 3.0 - 8.0 . Performed by LC-MS/MS technology. Performed By: #### D DAVIDSON, MG, PHOS, CMP, LIPID, URIC #### [facility] [address] [place] [address] Dr. Sarmad Patino BK VIRUS PCR QUANTon 022 BKV DNA QUANT PCR PLASMA Negative Normal Negative [facility] Comment on above: Result Comment: No B K DNA detected. . The linear range of the assay is 22 - 100,000,000 IU/mL. Performed By: #### U MAXI, LIPID, MG, CMP, DBIL, PHOS #### [facility] [address] [place] [address] Dr. Sarmad Patino Log10 BKV DNA Plasma Normal [facility] Comment on above: Performed By: #### U MAXI, LIPID, MG, CMP, DBIL, PHOS #### [facility] [address] [place] [address] Dr. Sarmad Patino BILIRUBIN CONJUGATED (DIRECT )on 11-07-2021 BILI, CONJUGATED 0.1 mg/dL Normal 0.0-0.2 [facility] Comment on above: Performed By: #### D DAVIDSON, MG, PHOS, CMP, LIPID, URIC #### [facility] [address] [place] [address] Dr. Sarmda Patino CBC AUTO DIFFon 11-07-2021 BASO # 0.0 103/ul Normal 0.0-0.1 [facility] Comment on above: Performed By: #### D DAVIDSON, MG, PHOS, CMP, LIPID, URIC #### [facility] [address] [place] [address] Dr. Sarmad Patino Basophils/100 WBC (Bld) 0.3 % Normal 0.2-2.0 [facility] Comment on above: Performed By: #### D DAVIDSON, MG, PHOS, CMP, LIPID, URIC #### [facility] [address] [place] [address] Dr. Sarmad Patino EO # 0.1 103/ul Normal 0.0-0.7 [facility] Comment on above: Performed By: #### D DAVIDSON, MG, PHOS, CMP, LIPID, URIC #### [facility] [address] [place] [address] Dr. Sarmad Patino Eosinophils/100 WBC (Bld) 2.1 % Normal 0.9-7.0 [facility] Comment on above: Performed By: #### D DAVIDSON, MG, PHOS, CMP, LIPID, URIC #### [facility] [address] [place] [address] Dr. Sarmad Patino Erythrocyte distribution width (RBC) [Ratio] 13.5 % Normal 11.0-15.0 [facility] Comment on above: Performed By: #### D DAVISDON, MG, PHOS, CMP, LIPID, URIC #### [facility] [address] [place] [address] Dr. Sarmad Patino Hematocrit (Bld) [Volume fraction] 46.7 % Normal 36.0-48.0 [facility] Comment on above: Performed By: #### D DAVIDSON, MG, PHOS, CMP, LIPID, URIC #### [facility] [address] [place] [address] Dr. Sarmad Patino Hemoglobin (Bld) [Mass/Vol] 15.1 g/dL Normal 12.0-16.0 [facility] Comment on above: Performed By: #### D DAVIDSON, MG, PHOS, CMP, LIPID, URIC #### [facility] [address] [place] [address] Dr. Sarmad Patino IG # 0.03 10e3/ul Normal 0.00-0.03 [facility] Comment on above: Performed By: #### D DAVIDSON, MG, PHOS, CMP, LIPID, URIC #### [facility] [address] [place] [address] Dr. Sarmad Patino IG % 0.5 % Normal 0.0-0.5 [facility] Comment on above: Performed By: #### D DAVIDSON, MG, PHOS, CMP, LIPID, URIC #### [facility] [address] [place] [address] Dr. Sarmad Patino LYMPH # 1.3 103/ul Normal 1.2-3.8 [facility] Comment on above: Performed By: #### D DAVIDSON, MG, PHOS, CMP, LIPID, URIC #### [facility] [address] [place] [address] Dr. Sarmad Patino Lymphocytes/100 WBC (Bld) 19.9 % Critically low 20.5-60.0 [facility] Comment on above: Performed By: #### D DAVIDSON, MG, PHOS, CMP, LIPID, URIC #### [facility] [address] [place] [address] Dr. Sarmad Patino MANUAL DIFF REQ NO Normal [facility] Comment on above: Performed By: #### D DAVIDSON, MG, PHOS, CMP, LIPID, URIC #### [facility] [address] [place] [address] Dr. Sarmad Patino MCH (RBC) [Entitic mass] 28.6 pg Normal 26.7-34.0 [facility] Comment on above: Performed By: #### D DAVIDSON, MG, PHOS, CMP, LIPID, URIC #### [facility] [address] [place] [address] Dr. Sarmad Patino MCHC (RBC) [Mass/Vol] 32.3 g/dL Normal 29.9-35.2 [facility] Comment on above: Performed By: #### D DAVIDSON, MG, PHOS, CMP, LIPID, URIC #### [facility] [address] [place] [address] Dr. Sarmad Patino MCV (RBC) [Entitic vol] 88.4 fL Normal 81.0-99.0 [facility] Comment on above: Performed By: #### D DAVIDSON, MG, PHOS, CMP, LIPID, URIC #### [facility] [address] [place] [address] Dr. Sarmad Patino MONO # 0.8 103/ul Normal 0.3-0.8 [facility] Comment on above: Performed By: #### D DAVIDSON, MG, PHOS, CMP, LIPID, URIC #### [facility] [address] [place] [address] Dr. Sarmad Patino Monocytes/100 WBC (Bld) 12.9 % Critically high 1.7-12.0 [facility] Comment on above: Performed By: #### D DAVIDSON, MG, PHOS, CMP, LIPID, URIC #### [facility] [address] [place] [address] Dr. Sarmad Patino NEUT # 4.0 103/ul Normal 1.4-6.5 [facility] Comment on above: Performed By: #### D DAVIDSON, MG, PHOS, CMP, LIPID, URIC #### [facility] [address] [address] [address] Sarmad Patino Neutrophils/100 WBC (Bld) 64.3 % Normal 43.0-75.0 [facility] Comment on above: Performed By: #### D DAVIDSON, MG, PHOS, CMP, LIPID, URIC #### [facility] [address] [address] [address] Sarmad Patino Platelet mean volume (Bld) [Entitic vol] 11.3 fL Normal 9.5-13.5 [facility] Comment on above: Performed By: #### D DAVIDSON, MG, PHOS, CMP, LIPID, URIC #### [facility] [address] [place] [address] Dr. Sarmad Patino PLT 241 103/ul Normal 150-450 [facility] Comment on above: Performed By: #### D DAVIDSON, MG, PHOS, CMP, LIPID, URIC #### [facility] [address] [address] [address] Sarmad Patino RBC 5.28 106/ul Normal 4.20-5.40 [facility] Comment on above: Performed By: #### D DAVIDSON, MG, PHOS, CMP, LIPID, URIC #### [facility] [address] [place] [address] Dr. Sarmad Patino WBC 6.3 103/ul Normal 4.0-11.0 [facility] Comment on above: Performed By: #### D DAVIDSON, MG, PHOS, CMP, LIPID, URIC #### [facility] [address] [place] [address] Dr. Sarmad Patino GLYCOHEMOGLOBIN A1Con 2021 ADA RECOMMENDATION SEE BELOW Normal [facility] Comment on above: Result Comment: ADA RECOMMENDED LIMIT 4.0 - 6.0 ADA THERAPEUTIC TARGET < 7.0 ACTION SUGGESTED > 7.0 Performed By: #### D DAVIDSON, MG, PHOS, CMP, LIPID, URIC #### [facility] [address] [place] [address] Dr. Sarmad Patino Glucose [Mass/Vol] 120 mg/dL Normal [facility] Comment on above: Performed By: #### D DAVIDSON, MG, PHOS, CMP, LIPID, URIC #### [facility] [address] [address] [address] Sarmad Patino HbA1c (Bld) [Mass fraction] 5.8 % Normal 4.5-6.2 [facility] Comment on above: Performed By: #### D DAVIDSON, MG, PHOS, CMP, LIPID, URIC #### [facility] [address] [address] [address] Sarmad Patino LIPID PROFILEon 11-07-2021 CHOL-HDL RATIO NORM SEE BELOW Normal [facility] Comment on above: Result Comment: 3.3 - 4.4 LOW RISK 4.4 - 7.1 AVERAGE RISK 7.1 - 11.0 MODERATE RISK >11.0 HIGH RISK Performed By: #### D DAVIDSON, MG, PHOS, CMP, LIPID, URIC #### [facility] [address] [place] [address] Dr. Sarmad Patino Cholesterol [Mass/Vol] 157 mg/dL Normal <=200 [facility] Comment on above: Performed By: #### D DAVIDSON, MG, PHOS, CMP, LIPID, URIC #### [facility] [address] [place] [address] Dr. Sarmad Patino Cholesterol in HDL [Mass/Vol] 48 mg/dL Normal 40-60 [facility] Comment on above: Performed By: #### D DAVIDSON, MG, PHOS, CMP, LIPID, URIC #### [facility] [address] [address] [address] Sarmad Patino Cholesterol in LDL [Mass/Vol] 89.6 mg/dL Normal [facility] Comment on above: Performed By: #### D DAVIDSON, MG, PHOS, CMP, LIPID, URIC #### [facility] [address] [place] [address] Dr. Sarmad Patino Cholesterol.total/Cho lesterol in HDL [Mass ratio] 3.3 {ratio} Normal [facility] Comment on above: Performed By: #### D DAVIDSON, MG, PHOS, CMP, LIPID, URIC #### [facility] [address] [address] [address] Sarmad Patino HDL NORMAL > or = 60 mg/dl - LO W CARDIOVASCULAR RISK <40 mg/dl - HIGH CARDIOVASCULAR RISK Normal [facility] Comment on above: Performed By: #### D DAVIDSON, MG, PHOS, CMP, LIPID, URIC #### [facility] [address] [address] [address] Sarmad Patino LDL CALC NORMAL SEE BELOW Normal [facility] Comment on above: Result Comment: <100 mg/dl OPTIMAL 100 - 129 mg/dl NEAR OR ABOVE OPTIMAL 130 - 159 mg/dl BORDERLINE HIGH 160 - 189 mg/dl HIGH >190 mg/dl VERY HIGH Performed By: #### D DAVIDSON, MG, PHOS, CMP, LIPID, URIC #### [facility] [address] [place] [address] Dr. Sarmad Patino Triglyceride [Mass/Vol] 97 mg/dL Normal <=150 [facility] Comment on above: Performed By: #### D DAVIDSON, MG, PHOS, CMP, LIPID, URIC #### [facility] [address] [address] [address] Sarmad Patino VLDL CALC 19.4 mg/dL Normal [facility] Comment on above: Performed By: #### D DAVIDSON, MG, PHOS, CMP, LIPID, URIC #### [facility] [address] [place] [address] Dr. Sarmad Patino MAGNESIUMon 11-07-2021 Magnesium [Mass/Vol] 1.9 mg/dL Normal 1.8-2.4 [facility] Comment on above: Performed By: #### D DAVIDSON, MG, PHOS, CMP, LIPID, URIC #### [facility] [address] [address] [address] Sarmad Patino PHOSPHORUSon 11-07-2021 Phosphate [Mass/Vol] 3.4 mg/dL Normal 2.6-4.7 [facility] Comment on above: Performed By: #### D DAVIDSON, MG, PHOS, CMP, LIPID, URIC #### [facility] [address] [place] [address] Dr. Sarmad Patino PROF 14(COMP METB)on 022 Albumin [Mass/Vol] 3.6 g/dL Normal 3.4-5.0 [facility] Comment on above: Performed By: #### D DAVIDSON, MG, PHOS, CMP, LIPID, URIC #### [facility] [address] [place] [address] Dr. Sarmad Patino Albumin/Globulin [Mass ratio] 0.9 {ratio} Normal [facility] Comment on above: Performed By: #### D DAVIDSON, MG, PHOS, CMP, LIPID, URIC #### [facility] [address] [address] [address] Sarmad Patino ALP [Catalytic activity/Vol] 158 U/L Critically high 46-116 [facility] Comment on above: Performed By: #### D DAVIDSON, MG, PHOS, CMP, LIPID, URIC #### [facility] [address] [place] [address] Dr. Sarmad Patino ALT [Catalytic activity/Vol] 23 U/L Normal 14-59 [facility] Comment on above: Performed By: #### D DAVIDSON, MG, PHOS, CMP, LIPID, URIC #### [facility] [address] [address] [address] Sarmad Patino Anion gap [Moles/Vol] 14.8 mmol/L Normal [facility] Comment on above: Performed By: #### D DAVIDSON, MG, PHOS, CMP, LIPID, URIC #### [facility] [address] [place] [address] Dr. Sarmad Patino AST [Catalytic activity/Vol] 18 U/L Normal 15-37 [facility] Comment on above: Performed By: #### D DAVIDSON, MG, PHOS, CMP, LIPID, URIC #### [facility] [address] [place] [address] Dr. Sarmad Patino Bilirubin [Mass/Vol] 0.4 mg/dL Normal 0.2-1.0 [facility] Comment on above: Performed By: #### D DAVIDSON, MG, PHOS, CMP, LIPID, URIC #### [facility] [address] [place] [address] Dr. Sarmad Patino Calcium [Mass/Vol] 9.3 mg/dL Normal 8.5-10.1 [facility] Comment on above: Performed By: #### D DAVIDSON, MG, PHOS, CMP, LIPID, URIC #### [facility] [address] [address] [address] Sarmad Patino Chloride [Moles/Vol] 105 mmol/L Normal 98-107 [facility] Comment on above: Performed By: #### D DAVIDSON, MG, PHOS, CMP, LIPID, URIC #### [facility] [address] [address] [address] Sarmad Patino CO2 [Moles/Vol] 26.1 mmol/L Normal 21.0-32.0 [facility] Comment on above: Performed By: #### D DAVIDSON, MG, PHOS, CMP, LIPID, URIC #### [facility] [address] [place] [address] Dr. Sarmad Patino Creatinine [Mass/Vol] 0.84 mg/dL Normal 0.55-1.02 [facility] Comment on above: Performed By: #### D DAVIDSON, MG, PHOS, CMP, LIPID, URIC #### [facility] [address] [address] [address] Sarmad Patino EGFR-AF DJIBOUTIAN >60 Normal >=60 [facility] Comment on above: Performed By: #### D DAVIDSON, MG, PHOS, CMP, LIPID, URIC #### [facility] [address] [place] [address] Dr. Sarmad Patino EGFR-NON AF DJIBOUTIAN >60 Normal >=60 [facility] Comment on above: Performed By: #### D DAVIDSON, MG, PHOS, CMP, LIPID, URIC #### [facility] [address] [address] [address] Sarmad Patino Globulin (S) [Mass/Vol] 3.8 g/dL Normal [facility] Comment on above: Performed By: #### D DAVIDSON, MG, PHOS, CMP, LIPID, URIC #### [facility] [address] [address] [address] Sarmad Patino Glucose [Mass/Vol] 97 mg/dL Normal 74-106 [facility] Comment on above: Performed By: #### D DAVIDSON, MG, PHOS, CMP, LIPID, URIC #### [facility] [address] [address] [address] Sarmad Patino Potassium [Moles/Vol] 3.9 mmol/L Normal 3.5-5.1 [facility] Comment on above: Performed By: #### D DAVIDSON, MG, PHOS, CMP, LIPID, URIC #### [facility] [address] [place] [address] Dr. Sarmad Patino Protein [Mass/Vol] 7.4 g/dL Normal 6.4-8.2 [facility] Comment on above: Performed By: #### D DAVIDSON, MG, PHOS, CMP, LIPID, URIC #### [facility] [address] [place] [address] Dr. Sarmad Patino Sodium [Moles/Vol] 142 mmol/L Normal 136-145 [facility] Comment on above: Performed By: #### D DAVIDSON, MG, PHOS, CMP, LIPID, URIC #### [facility] [address] [address] [address] Sarmad Pation Urea nitrogen [Mass/Vol] 21.0 mg/dL Critically high 7.0-18.0 [facility] Comment on above: Performed By: #### D DAVIDSON, MG, PHOS, CMP, LIPID, URIC #### [facility] [address] [place] [address] Dr. Sarmad Patino Urea nitrogen/Creatinine [Mass ratio] 25.0 mg/mg Normal [facility] Comment on above: Performed By: #### D DAVIDSON, MG, PHOS, CMP, LIPID, URIC #### [facility] [address] [place] [address] Dr. Sarmad Patino URIC ACID SERUMon 11-07-2021 Urate [Mass/Vol] 5.1 mg/dL Normal 2.6-6.0 [facility] Comment on above: Performed By: #### D DAVIDSON, MG, PHOS, CMP, LIPID, URIC #### [facility] [address] [place] [address] Dr. Sarmad Patino BOX TEST SENT OUTon 10-16-19 22 SENT TO REF LAB 10/15/[address] [facility] Comment on above: Performed By: #### D DAVIDSON, MG, PHOS, CMP, LIPID, URIC #### [facility] [address] [place] [address] Dr. Sarmad Patino EVEROLIMU, WHOLE BLOODon EVEROLIMUS 6.7 ng/mL Normal 3.0-8.0 [facility] Comment on above: Result Comment: Perf ormed by LC-MS/MS technology. Performed By: #### D DAVIDSON, MG, PHOS, CMP, LIPID, URIC #### [facility] [address] [place] [address] Dr. Sarmad Patino FK506 (TACROLIMUS) WHOLE BLO ODon 10-10-2021 Tacrolimus (FK506), Blood 5.9 ng/mL Normal 2.0-20.0 [facility] Comment on above: Result Comment: Trou gh (immediately following transplant) 15.0 . Trough (steady state, 2 weeks or more after transplant): 3.0 - 8.0 . Performed by LC-MS/MS technology. Performed By: #### D DAVIDSON, MG, PHOS, CMP, LIPID, URIC #### [facility] [address] [place] [address] Dr. Sarmad Patino BILIRUBIN CONJUGATED (DIRECT )on 10-08-2021 BILI, CONJUGATED 0.1 mg/dL Normal 0.0-0.2 [facility] Comment on above: Performed By: #### U MAXI, LIPID, MG, CMP, DBIL, PHOS #### [facility] [address] [place] [address] Dr. Sarmad Patino CBC AUTO DIFFon 10-08-2021 BASO # 0.0 103/ul Normal 0.0-0.1 [facility] Comment on above: Performed By: #### D DAVIDSON, MG, PHOS, CMP, LIPID, URIC #### [facility] [address] [place] [address] Dr. Sarmad Patino Basophils/100 WBC (Bld) 0.1 % Critically low 0.2-2.0 [facility] Comment on above: Performed By: #### D DAVIDSON, MG, PHOS, CMP, LIPID, URIC #### [facility] [address] [place] [address] Dr. Sarmad Patino EO # 0.1 103/ul Normal 0.0-0.7 [facility] Comment on above: Performed By: #### D DAVIDSON, MG, PHOS, CMP, LIPID, URIC #### [facility] [address] [place] [address] Dr. Sarmad Patino Eosinophils/100 WBC (Bld) 1.4 % Normal 0.9-7.0 [facility] Comment on above: Performed By: #### D DAVIDSON, MG, PHOS, CMP, LIPID, URIC #### [facility] [address] [place] [address] Dr. Sarmad Patino Erythrocyte distribution width (RBC) [Ratio] 13.6 % Normal 11.0-15.0 [facility] Comment on above: Performed By: #### D DAVIDSON, MG, PHOS, CMP, LIPID, URIC #### [facility] [address] [place] [address] Dr. Sarmad Patino Hematocrit (Bld) [Volume fraction] 47.5 % Normal 36.0-48.0 [facility] Comment on above: Performed By: #### D DAVIDSON, MG, PHOS, CMP, LIPID, URIC #### [facility] [address] [place] [address] Dr. Sarmad Patino Hemoglobin (Bld) [Mass/Vol] 15.7 g/dL Normal 12.0-16.0 [facility] Comment on above: Performed By: #### D DAVIDSON, MG, PHOS, CMP, LIPID, URIC #### [facility] [address] [place] [address] Dr. Sarmad Patino IG # 0.04 10e3/ul Critically high 0.00-0.03 [facility] Comment on above: Performed By: #### D DAVIDSON, MG, PHOS, CMP, LIPID, URIC #### [facility] [address] [place] [address] Dr. Sarmad Patino IG % 0.5 % Normal 0.0-0.5 [facility] Comment on above: Performed By: #### D DAVIDSON, MG, PHOS, CMP, LIPID, URIC #### [facility] [address] [place] [address] Dr. Sarmad Patino LYMPH # 1.3 103/ul Normal 1.2-3.8 [facility] Comment on above: Performed By: #### D DAVIDSON, MG, PHOS, CMP, LIPID, URIC #### [facility] [address] [place] [address] Dr. Sarmad Patino Lymphocytes/100 WBC (Bld) 15.4 % Critically low 20.5-60.0 [facility] Comment on above: Performed By: #### D DAVIDSON, MG, PHOS, CMP, LIPID, URIC #### [facility] [address] [place] [address] Dr. Sarmad Patino MANUAL DIFF REQ NO Normal [facility] Comment on above: Performed By: #### D DAVIDSON, MG, PHOS, CMP, LIPID, URIC #### [facility] [address] [place] [address] Dr. Sarmad Patino MCH (RBC) [Entitic mass] 29.1 pg Normal 26.7-34.0 [facility] Comment on above: Performed By: #### D DAVIDSON, MG, PHOS, CMP, LIPID, URIC #### [facility] [address] [place] [address] Dr. Sarmad Patino MCHC (RBC) [Mass/Vol] 33.1 g/dL Normal 29.9-35.2 [facility] Comment on above: Performed By: #### D DAVIDSON, MG, PHOS, CMP, LIPID, URIC #### [facility] [address] [place] [address] Dr. Sarmad Patino MCV (RBC) [Entitic vol] 88.0 fL Normal 81.0-99.0 [facility] Comment on above: Performed By: #### D DAVIDSON, MG, PHOS, CMP, LIPID, URIC #### [facility] [address] [place] [address] Dr. Sarmad Patino MONO # 0.9 103/ul Critically high 0.3-0.8 [facility] Comment on above: Performed By: #### D DAVIDSON, MG, PHOS, CMP, LIPID, URIC #### [facility] [address] [place] [address] Dr. Sarmad Patino Monocytes/100 WBC (Bld) 10.2 % Normal 1.7-12.0 [facility] Comment on above: Performed By: #### D DAVIDSON, MG, PHOS, CMP, LIPID, URIC #### [facility] [address] [place] [address] Dr. Sarmad Patino NEUT # 6.1 103/ul Normal 1.4-6.5 [facility] Comment on above: Performed By: #### D DAVIDSON, MG, PHOS, CMP, LIPID, URIC #### [facility] [address] [place] [address] Dr. Sarmad Patino Neutrophils/100 WBC (Bld) 72.4 % Normal 43.0-75.0 [facility] Comment on above: Performed By: #### D DAVIDSON, MG, PHOS, CMP, LIPID, URIC #### [facility] [address] [place] [address] Dr. Sarmad Patino Platelet mean volume (Bld) [Entitic vol] 11.1 fL Normal 9.5-13.5 [facility] Comment on above: Performed By: #### D DAVIDSON, MG, PHOS, CMP, LIPID, URIC #### [facility] [address] [place] [address] Dr. Sarmad Patino PLT 213 103/ul Normal 150-450 [facility] Comment on above: Performed By: #### D DAVIDSON, MG, PHOS, CMP, LIPID, URIC #### [facility] [address] [place] [address] Dr. Sarmad Patino RBC 5.40 106/ul Normal 4.20-5.40 [facility] Comment on above: Performed By: #### D DAVIDSON, MG, PHOS, CMP, LIPID, URIC #### [facility] [address] [place] [address] Dr. Sarmad Patino WBC 8.4 103/ul Normal 4.0-11.0 [facility] Comment on above: Performed By: #### D DAVIDSON, MG, PHOS, CMP, LIPID, URIC #### [facility] [address] [address] [address] Sarmad Patino LIPID PROFILEon 10-08-2021 CHOL-HDL RATIO NORM SEE BELOW Normal [facility] Comment on above: Result Comment: 3.3 - 4.4 LOW RISK 4.4 - 7.1 AVERAGE RISK 7.1 - 11.0 MODERATE RISK >11.0 HIGH RISK Performed By: #### D DAVIDSON, MG, PHOS, CMP, LIPID, URIC #### [facility] [address] [address] [address] Sarmad Patino Cholesterol [Mass/Vol] 155 mg/dL Normal <=200 [facility] Comment on above: Performed By: #### D DAVIDSON, MG, PHOS, CMP, LIPID, URIC #### [facility] [address] [address] [address] Sarmad Patino Cholesterol in HDL [Mass/Vol] 49 mg/dL Normal 40-60 [facility] Comment on above: Performed By: #### D DAVIDSON, MG, PHOS, CMP, LIPID, URIC #### [facility] [address] [address] [address] Sarmad Patino Cholesterol in LDL [Mass/Vol] 73.8 mg/dL Normal [facility] Comment on above: Performed By: #### D DAVIDSON, MG, PHOS, CMP, LIPID, URIC #### [facility] [address] [address] [address] Sarmad Patino Cholesterol.total/Cho lesterol in HDL [Mass ratio] 3.2 {ratio} Normal [facility] Comment on above: Performed By: #### D DAVIDSON, MG, PHOS, CMP, LIPID, URIC #### [facility] [address] [address] [address] Sarmad Patino HDL NORMAL > or = 60 mg/dl - LO W CARDIOVASCULAR RISK <40 mg/dl - HIGH CARDIOVASCULAR RISK Normal [facility] Comment on above: Performed By: #### D DAVIDSON, MG, PHOS, CMP, LIPID, URIC #### [facility] [address] [address] [address] Sarmad Patino LDL CALC NORMAL SEE BELOW Normal [facility] Comment on above: Result Comment: <100 mg/dl OPTIMAL 100 - 129 mg/dl NEAR OR ABOVE OPTIMAL 130 - 159 mg/dl BORDERLINE HIGH 160 - 189 mg/dl HIGH >190 mg/dl VERY HIGH Performed By: #### D DAVIDSON, MG, PHOS, CMP, LIPID, URIC #### [facility] [address] [address] [address] Sarmad Patino Triglyceride [Mass/Vol] 161 mg/dL Critically high <=150 [facility] Comment on above: Performed By: #### D DAVIDSON, MG, PHOS, CMP, LIPID, URIC #### [facility] [address] [address] [address] Sarmad Patino VLDL CALC 32.2 mg/dL Normal [facility] Comment on above: Performed By: #### D DAVIDSON, MG, PHOS, CMP, LIPID, URIC #### [facility] [address] [address] [address] Sarmad Patino MAGNESIUMon 10-08-2021 Magnesium [Mass/Vol] 1.6 mg/dL Critically low 1.8-2.4 [facility] Comment on above: Performed By: #### U MAXI, LIPID, MG, CMP, DBIL, PHOS #### [facility] [address] [address] [address] Sarmad Patino PHOSPHORUSon 10-08-2021 Phosphate [Mass/Vol] 3.5 mg/dL Normal 2.6-4.7 [facility] Comment on above: Performed By: #### U MAXI, LIPID, MG, CMP, DBIL, PHOS #### [facility] [address] [address] [address] Sarmad Patino PROF 14(COMP METB)on 022 Albumin [Mass/Vol] 3.6 g/dL Normal 3.4-5.0 [facility] Comment on above: Performed By: #### D DAVIDSON, MG, PHOS, CMP, LIPID, URIC #### [facility] [address] [place] [address] Dr. Sarmad Patino Albumin/Globulin [Mass ratio] 0.9 {ratio} Normal [facility] Comment on above: Performed By: #### D DAVIDSON, MG, PHOS, CMP, LIPID, URIC #### [facility] [address] [place] [address] Dr. Sarmad Patino ALP [Catalytic activity/Vol] 150 U/L Critically high 46-116 [facility] Comment on above: Performed By: #### D DAVIDSON, MG, PHOS, CMP, LIPID, URIC #### [facility] [address] [place] [address] Dr. Sarmad Patino ALT [Catalytic activity/Vol] 21 U/L Normal 14-59 [facility] Comment on above: Performed By: #### D DAVIDSON, MG, PHOS, CMP, LIPID, URIC #### [facility] [address] [place] [address] Dr. Sarmad Patino Anion gap [Moles/Vol] 14.0 mmol/L Normal [facility] Comment on above: Performed By: #### D DAVIDSON, MG, PHOS, CMP, LIPID, URIC #### [facility] [address] [place] [address] Dr. Sarmad Patino AST [Catalytic activity/Vol] 13 U/L Critically low 15-37 [facility] Comment on above: Performed By: #### D DAVIDSON, MG, PHOS, CMP, LIPID, URIC #### [facility] [address] [place] [address] Dr. Sarmad Patino Bilirubin [Mass/Vol] 0.5 mg/dL Normal 0.2-1.0 [facility] Comment on above: Performed By: #### D DAVIDSON, MG, PHOS, CMP, LIPID, URIC #### [facility] [address] [place] [address] Dr. Sarmad Patino Calcium [Mass/Vol] 9.8 mg/dL Normal 8.5-10.1 [facility] Comment on above: Performed By: #### D DAVIDSON, MG, PHOS, CMP, LIPID, URIC #### [facility] [address] [address] [address] Sarmad Patino Chloride [Moles/Vol] 105 mmol/L Normal 98-107 [facility] Comment on above: Performed By: #### D DAVIDSON, MG, PHOS, CMP, LIPID, URIC #### [facility] [address] [address] [address] Sarmad Patino CO2 [Moles/Vol] 25.9 mmol/L Normal 21.0-32.0 [facility] Comment on above: Performed By: #### D DAVIDSON, MG, PHOS, CMP, LIPID, URIC #### [facility] [address] [address] [address] Sarmad Patino Creatinine [Mass/Vol] 0.81 mg/dL Normal 0.55-1.02 [facility] Comment on above: Performed By: #### D DAVIDSON, MG, PHOS, CMP, LIPID, URIC #### [facility] [address] [address] [address] Sarmad Patino EGFR-AF DJIBOUTIAN >60 Normal >=60 [facility] Comment on above: Performed By: #### D DAVIDSON, MG, PHOS, CMP, LIPID, URIC #### [facility] [address] [place] [address] Dr. Sarmad Patino EGFR-NON AF DJIBOUTIAN >60 Normal >=60 [facility] Comment on above: Performed By: #### D DAVIDSON, MG, PHOS, CMP, LIPID, URIC #### [facility] [address] [address] [address] Sarmad Patino Globulin (S) [Mass/Vol] 3.8 g/dL Normal [facility] Comment on above: Performed By: #### D DAVIDSON, MG, PHOS, CMP, LIPID, URIC #### [facility] [address] [address] [address] Sarmad Patino Glucose [Mass/Vol] 101 mg/dL Normal 74-106 [facility] Comment on above: Performed By: #### D DAVIDSON, MG, PHOS, CMP, LIPID, URIC #### [facility] [address] [address] [address] Sarmad Patino Potassium [Moles/Vol] 3.9 mmol/L Normal 3.5-5.1 [facility] Comment on above: Performed By: #### D DAVIDSON, MG, PHOS, CMP, LIPID, URIC #### [facility] [address] [address] [address] Sarmad Patino Protein [Mass/Vol] 7.4 g/dL Normal 6.4-8.2 [facility] Comment on above: Performed By: #### D DAVIDSON, MG, PHOS, CMP, LIPID, URIC #### [facility] [address] [address] [address] Sarmad Patino Sodium [Moles/Vol] 141 mmol/L Normal 136-145 [facility] Comment on above: Performed By: #### D DAVIDSON, MG, PHOS, CMP, LIPID, URIC #### [facility] [address] [place] [address] Dr. Sarmad Patino Urea nitrogen [Mass/Vol] 18.0 mg/dL Normal 7.0-18.0 [facility] Comment on above: Performed By: #### D DAVIDSON, MG, PHOS, CMP, LIPID, URIC #### [facility] [address] [place] [address] Dr. Sarmad Patino Urea nitrogen/Creatinine [Mass ratio] 22.2 mg/mg Normal [facility] Comment on above: Performed By: #### D DAVIDSON, MG, PHOS, CMP, LIPID, URIC #### [facility] [address] [place] [address] Dr. Sarmad Patino URIC ACID SERUMon 10-08-2021 Urate [Mass/Vol] 4.7 mg/dL Normal 2.6-6.0 [facility] Comment on above: Performed By: #### D DAVIDSON, MG, PHOS, CMP, LIPID, URIC #### [facility] [address] [place] [address] Dr. Sarmad CHRISTIEMU, WHOLE BLOODon EVEROLIMUS 8.0 ng/mL Normal 3.0-8.0 [facility] Comment on above: Result Comment: Perf ormed by LC-MS/MS technology. Performed By: #### U MAXI, LIPID, MG, CMP, DBIL, PHOS #### [facility] [address] [place] [address] Dr. Sarmad Patino FK506 (TACROLIMUS) WHOLE BLO ODon 09-14-2021 Tacrolimus (FK506), Blood 9.3 ng/mL Normal 2.0-20.0 [facility] Comment on above: Result Comment: Trou gh (immediately following transplant) 15.0 . Trough (steady state, 2 weeks or more after transplant): 3.0 - 8.0 . Performed by LC-MS/MS technology. Performed By: #### U MAXI, LIPID, MG, CMP, DBIL, PHOS #### [facility] [address] [place] [address] Dr. Sarmad Patino BK VIRUS PCR QUANTon 022 BKV DNA QUANT PCR PLASMA Negative Normal Negative [facility] Comment on above: Result Comment: No B K DNA detected. . The linear range of the assay is 22 - 100,000,000 IU/mL. Performed By: #### D DAVIDSON, MG, PHOS, CMP, LIPID, URIC #### [facility] [address] [address] [address] Sarmad Patino Log10 BKV DNA Plasma Normal [facility] Comment on above: Performed By: #### D DAVIDSON, MG, PHOS, CMP, LIPID, URIC #### [facility] [address] [address] [address] Sarmad Patino BILIRUBIN CONJUGATED (DIRECT )on 09-10-2021 BILI, CONJUGATED 0.1 mg/dL Normal 0.0-0.2 [facility] Comment on above: Performed By: #### D DAVIDSON, MG, PHOS, CMP, LIPID, URIC #### [facility] [address] [place] [address] Dr. Sarmad Patino CBC AUTO DIFFon 09-10-2021 BASO # 0.0 103/ul Normal 0.0-0.1 [facility] Comment on above: Performed By: #### D DAVIDSON, MG, PHOS, CMP, LIPID, URIC #### [facility] [address] [place] [address] Dr. Sarmad Patino Basophils/100 WBC (Bld) 0.1 % Critically low 0.2-2.0 [facility] Comment on above: Performed By: #### D DAVIDSON, MG, PHOS, CMP, LIPID, URIC #### [facility] [address] [place] [address] Dr. Sarmad Patino EO # 0.2 103/ul Normal 0.0-0.7 [facility] Comment on above: Performed By: #### D DAVIDSON, MG, PHOS, CMP, LIPID, URIC #### [facility] [address] [place] [address] Dr. Sarmad Patino Eosinophils/100 WBC (Bld) 2.3 % Normal 0.9-7.0 [facility] Comment on above: Performed By: #### D DAVIDSON, MG, PHOS, CMP, LIPID, URIC #### [facility] [address] [place] [address] Dr. Sarmad Patino Erythrocyte distribution width (RBC) [Ratio] 13.6 % Normal 11.0-15.0 [facility] Comment on above: Performed By: #### D DAVIDSON, MG, PHOS, CMP, LIPID, URIC #### [facility] [address] [place] [address] Dr. Sarmad Patino Hematocrit (Bld) [Volume fraction] 45.1 % Normal 36.0-48.0 [facility] Comment on above: Performed By: #### D DAVIDSON, MG, PHOS, CMP, LIPID, URIC #### [facility] [address] [place] [address] Dr. Sarmad Patino Hemoglobin (Bld) [Mass/Vol] 14.7 g/dL Normal 12.0-16.0 [facility] Comment on above: Performed By: #### D DAVIDSON, MG, PHOS, CMP, LIPID, URIC #### [facility] [address] [place] [address] Dr. Sarmad Patino IG # 0.03 10e3/ul Normal 0.00-0.03 [facility] Comment on above: Performed By: #### D DAVIDSON, MG, PHOS, CMP, LIPID, URIC #### [facility] [address] [place] [address] Dr. Sarmad Patino IG % 0.4 % Normal 0.0-0.5 [facility] Comment on above: Performed By: #### D DAVIDSON, MG, PHOS, CMP, LIPID, URIC #### [facility] [address] [place] [address] Dr. Sarmad Patino LYMPH # 1.3 103/ul Normal 1.2-3.8 [facility] Comment on above: Performed By: #### D DAVIDSON, MG, PHOS, CMP, LIPID, URIC #### [facility] [address] [place] [address] Dr. Sarmad Patino Lymphocytes/100 WBC (Bld) 18.9 % Critically low 20.5-60.0 [facility] Comment on above: Performed By: #### D DAVIDSON, MG, PHOS, CMP, LIPID, URIC #### [facility] [address] [place] [address] Dr. Sarmad Patino MANUAL DIFF REQ NO Normal [facility] Comment on above: Performed By: #### D DAVIDSON, MG, PHOS, CMP, LIPID, URIC #### [facility] [address] [place] [address] Dr. Sarmad Patino MCH (RBC) [Entitic mass] 29.0 pg Normal 26.7-34.0 [facility] Comment on above: Performed By: #### D DAVIDSON, MG, PHOS, CMP, LIPID, URIC #### [facility] [address] [place] [address] Dr. Sarmad Patino MCHC (RBC) [Mass/Vol] 32.6 g/dL Normal 29.9-35.2 [facility] Comment on above: Performed By: #### D DAVIDSON, MG, PHOS, CMP, LIPID, URIC #### [facility] [address] [place] [address] Dr. Sarmad Patino MCV (RBC) [Entitic vol] 89.0 fL Normal 81.0-99.0 [facility] Comment on above: Performed By: #### D DAVIDSON, MG, PHOS, CMP, LIPID, URIC #### [facility] [address] [place] [address] Dr. Sarmad Patino MONO # 0.8 103/ul Normal 0.3-0.8 [facility] Comment on above: Performed By: #### D DAVIDSON, MG, PHOS, CMP, LIPID, URIC #### [facility] [address] [place] [address] Dr. Sarmad Patino Monocytes/100 WBC (Bld) 11.9 % Normal 1.7-12.0 [facility] Comment on above: Performed By: #### D DAVIDSON, MG, PHOS, CMP, LIPID, URIC #### [facility] [address] [place] [address] Dr. Sarmad Patino NEUT # 4.6 103/ul Normal 1.4-6.5 [facility] Comment on above: Performed By: #### D DAVIDSON, MG, PHOS, CMP, LIPID, URIC #### [facility] [address] [place] [address] Dr. Sarmad Patino Neutrophils/100 WBC (Bld) 66.4 % Normal 43.0-75.0 [facility] Comment on above: Performed By: #### D DAVIDSON, MG, PHOS, CMP, LIPID, URIC #### [facility] [address] [place] [address] Dr. Sarmad Patino Platelet mean volume (Bld) [Entitic vol] 10.6 fL Normal 9.5-13.5 [facility] Comment on above: Performed By: #### D DAVIDSON, MG, PHOS, CMP, LIPID, URIC #### [facility] [address] [place] [address] Dr. Sarmad Patino PLT 233 103/ul Normal 150-450 [facility] Comment on above: Performed By: #### D DAVIDSON, MG, PHOS, CMP, LIPID, URIC #### [facility] [address] [place] [address] Dr. Sarmad Patino RBC 5.07 106/ul Normal 4.20-5.40 [facility] Comment on above: Performed By: #### D DAVIDSON, MG, PHOS, CMP, LIPID, URIC #### [facility] [address] [address] [address] Sarmad Patino WBC 6.9 103/ul Normal 4.0-11.0 [facility] Comment on above: Performed By: #### D DAVIDSON, MG, PHOS, CMP, LIPID, URIC #### [facility] [address] [address] [address] Sarmad Patino GLYCOHEMOGLOBIN A1Con 2021 ADA RECOMMENDATION SEE BELOW Normal [facility] Comment on above: Result Comment: ADA RECOMMENDED LIMIT 4.0 - 6.0 ADA THERAPEUTIC TARGET < 7.0 ACTION SUGGESTED > 7.0 Performed By: #### D DAVIDSON, MG, PHOS, CMP, LIPID, URIC #### [facility] [address] [address] [address] Sarmad Patino Glucose [Mass/Vol] 120 mg/dL Normal [facility] Comment on above: Performed By: #### D DAVIDSON, MG, PHOS, CMP, LIPID, URIC #### [facility] [address] [address] [address] Sarmad Patino HbA1c (Bld) [Mass fraction] 5.8 % Normal 4.5-6.2 [facility] Comment on above: Performed By: #### D DAVIDSON, MG, PHOS, CMP, LIPID, URIC #### [facility] [address] [address] [address] Sarmad Patino LIPID PROFILEon 09-10-2021 CHOL-HDL RATIO NORM SEE BELOW Normal [facility] Comment on above: Result Comment: 3.3 - 4.4 LOW RISK 4.4 - 7.1 AVERAGE RISK 7.1 - 11.0 MODERATE RISK >11.0 HIGH RISK Performed By: #### D DAVIDSON, MG, PHOS, CMP, LIPID, URIC #### [facility] [address] [place] [address] Dr. Sarmad Patino Cholesterol [Mass/Vol] 150 mg/dL Normal <=200 [facility] Comment on above: Performed By: #### D DAVIDSON, MG, PHOS, CMP, LIPID, URIC #### [facility] [address] [address] [address] Sarmad Patino Cholesterol in HDL [Mass/Vol] 47 mg/dL Normal 40-60 [facility] Comment on above: Performed By: #### D DAVIDSON, MG, PHOS, CMP, LIPID, URIC #### [facility] [address] [address] [address] Sarmad Patino Cholesterol in LDL [Mass/Vol] 78.4 mg/dL Normal [facility] Comment on above: Performed By: #### D DAVIDSON, MG, PHOS, CMP, LIPID, URIC #### [facility] [address] [address] [address] Sarmad Patino Cholesterol.total/Cho lesterol in HDL [Mass ratio] 3.2 {ratio} Normal [facility] Comment on above: Performed By: #### D DAVIDSON, MG, PHOS, CMP, LIPID, URIC #### [facility] [address] [address] [address] Sarmad Patino HDL NORMAL > or = 60 mg/dl - LO W CARDIOVASCULAR RISK <40 mg/dl - HIGH CARDIOVASCULAR RISK Normal [facility] Comment on above: Performed By: #### D DAVIDSON, MG, PHOS, CMP, LIPID, URIC #### [facility] [address] [address] [address] Sarmad Patino LDL CALC NORMAL SEE BELOW Normal [facility] Comment on above: Result Comment: <100 mg/dl OPTIMAL 100 - 129 mg/dl NEAR OR ABOVE OPTIMAL 130 - 159 mg/dl BORDERLINE HIGH 160 - 189 mg/dl HIGH >190 mg/dl VERY HIGH Performed By: #### D DAVIDSON, MG, PHOS, CMP, LIPID, URIC #### [facility] [address] [address] [address] Sarmad Patino Triglyceride [Mass/Vol] 123 mg/dL Normal <=150 [facility] Comment on above: Performed By: #### D DAVIDSON, MG, PHOS, CMP, LIPID, URIC #### [facility] [address] [address] [address] Sarmad Patino VLDL CALC 24.6 mg/dL Normal [facility] Comment on above: Performed By: #### D DAVIDSON, MG, PHOS, CMP, LIPID, URIC #### [facility] [address] [address] [address] Sarmad Patino MAGNESIUMon 09-10-2021 Magnesium [Mass/Vol] 1.5 mg/dL Critically low 1.8-2.4 [facility] Comment on above: Performed By: #### D DAVIDSON, MG, PHOS, CMP, LIPID, URIC #### [facility] [address] [place] [address] Dr. Sarmad Patino PHOSPHORUSon 09-10-2021 Phosphate [Mass/Vol] 3.8 mg/dL Normal 2.6-4.7 [facility] Comment on above: Performed By: #### D DAVIDSON, MG, PHOS, CMP, LIPID, URIC #### [facility] [address] [place] [address] Dr. Sarmad Patino PROF 14(COMP METB)on 022 Albumin [Mass/Vol] 3.4 g/dL Normal 3.4-5.0 [facility] Comment on above: Performed By: #### D DAVIDSON, MG, PHOS, CMP, LIPID, URIC #### [facility] [address] [place] [address] Dr. Sarmad Patino Albumin/Globulin [Mass ratio] 0.9 {ratio} Normal [facility] Comment on above: Performed By: #### D DAVIDSON, MG, PHOS, CMP, LIPID, URIC #### [facility] [address] [place] [address] Dr. Sarmad Patino ALP [Catalytic activity/Vol] 143 U/L Critically high 46-116 [facility] Comment on above: Performed By: #### D DAVIDSON, MG, PHOS, CMP, LIPID, URIC #### [facility] [address] [place] [address] Dr. Sarmad Patino ALT [Catalytic activity/Vol] 19 U/L Normal 14-59 [facility] Comment on above: Performed By: #### D DAVIDSON, MG, PHOS, CMP, LIPID, URIC #### [facility] [address] [place] [address] Dr. Sarmad Patino Anion gap [Moles/Vol] 13.4 mmol/L Normal [facility] Comment on above: Performed By: #### D DAVIDSON, MG, PHOS, CMP, LIPID, URIC #### [facility] [address] [place] [address] Dr. Sarmad Patino AST [Catalytic activity/Vol] 24 U/L Normal 15-37 [facility] Comment on above: Performed By: #### D DAVIDSON, MG, PHOS, CMP, LIPID, URIC #### [facility] [address] [place] [address] Dr. Sarmad Patino Bilirubin [Mass/Vol] 0.4 mg/dL Normal 0.2-1.0 [facility] Comment on above: Performed By: #### D DAVIDSON, MG, PHOS, CMP, LIPID, URIC #### [facility] [address] [place] [address] Dr. Sarmad Patino Calcium [Mass/Vol] 9.3 mg/dL Normal 8.5-10.1 [facility] Comment on above: Performed By: #### D DAVIDSON, MG, PHOS, CMP, LIPID, URIC #### [facility] [address] [place] [address] Dr. Sarmad Patino Chloride [Moles/Vol] 106 mmol/L Normal 98-107 [facility] Comment on above: Performed By: #### D DAVIDSON, MG, PHOS, CMP, LIPID, URIC #### [facility] [address] [place] [address] Dr. Sarmad Patino CO2 [Moles/Vol] 25.5 mmol/L Normal 21.0-32.0 [facility] Comment on above: Performed By: #### D DAVIDSON, MG, PHOS, CMP, LIPID, URIC #### [facility] [address] [place] [address] Dr. Sarmad Patino Creatinine [Mass/Vol] 0.85 mg/dL Normal 0.55-1.02 [facility] Comment on above: Performed By: #### D DAVIDSON, MG, PHOS, CMP, LIPID, URIC #### [facility] [address] [address] [address] Sarmad Patino EGFR-AF DJIBOUTIAN >60 Normal >=60 [facility] Comment on above: Performed By: #### D DAVIDSON, MG, PHOS, CMP, LIPID, URIC #### [facility] [address] [place] [address] Dr. Sarmad Patino EGFR-NON AF DJIBOUTIAN >60 Normal >=60 [facility] Comment on above: Performed By: #### D DAVIDSON, MG, PHOS, CMP, LIPID, URIC #### [facility] [address] [place] [address] Dr. Sarmad Patino Globulin (S) [Mass/Vol] 3.8 g/dL Normal The [facility] Comment on above: Performed By: #### D DAVIDSON, MG, PHOS, CMP, LIPID, URIC #### [facility] [address] [place] [address] Dr. Sarmad Patino Glucose [Mass/Vol] 100 mg/dL Normal 74-106 [facility] Comment on above: Performed By: #### D DAVIDSON, MG, PHOS, CMP, LIPID, URIC #### [facility] [address] [place] [address] Dr. Sarmad Patino Potassium [Moles/Vol] 3.9 mmol/L Normal 3.5-5.1 [facility] Comment on above: Performed By: #### D DAVIDSON, MG, PHOS, CMP, LIPID, URIC #### [facility] [address] [place] [address] Dr. Sarmad Patino Protein [Mass/Vol] 7.2 g/dL Normal 6.4-8.2 [facility] Comment on above: Performed By: #### D DAVIDSON, MG, PHOS, CMP, LIPID, URIC #### [facility] [address] [address] [address] Sarmad Patino Sodium [Moles/Vol] 141 mmol/L Normal 136-145 [facility] Comment on above: Performed By: #### D DAVIDSON, MG, PHOS, CMP, LIPID, URIC #### [facility] [address] [place] [address] Dr. Sarmad Patino Urea nitrogen [Mass/Vol] 16.0 mg/dL Normal 7.0-18.0 [facility] Comment on above: Performed By: #### D DAVIDSON, MG, PHOS, CMP, LIPID, URIC #### [facility] [id number] Sarmad Patino Urea nitrogen/Creatinine [Mass ratio] 18.8 mg/mg Normal The [facility] Comment on above: Performed By: #### D DAVIDSON, MG, PHOS, CMP, LIPID, URIC #### [facility] [id number] Sarmad Patino URIC ACID SERUMon 09-10-2021 Urate [Mass/Vol] 4.8 mg/dL Normal 2.6-6.0 [facility] Comment on above: Performed By: #### D DAVIDSON, MG, PHOS, CMP, LIPID, URIC #### [facility] [address] [address] [address] Sarmad Patino Urinalysis - AUTOMATEDon Appearance (U) cloudy [employer] Other Bilirubin Ql (U) Negative [employer] Other Color (U) pale yellow [employer] Other Glucose Ql (U) Negative [employer] Other Hemoglobin Ql (U) moderate [employer] Other Ketones Ql (U) Negative [employer] Other Leukocyte esterase Test strip Ql (U) moderate [employer] Other Nitrite Ql (U) Negative [employer] Other pH (U) 7.0 [pH] [employer] Other Protein Ql (U) Negative [employer] Other Specific gravity (U) [Rel density] 1.010 [employer] Other Urobilinogen (U) [Mass/Vol] 0.2 mg/dL [employer] Other Urinalysis - AUTOMATED [employer] Other Urine Cultureon 08-14-2021 Urine Culture 100,000 [employer] Other Urine Culture <16 Susceptible [employer] Other Urine Culture >16 Resistant [employer] Other Urine Culture <4 Susceptible [employer] Other Urine Culture <2 Susceptible [employer] Other Urine Culture <1 Susceptible [employer] Other Urine Culture <0.5 Susceptible [employer] Other Urine Culture <32 Susceptible [employer] Other Urine Culture <2/38 Susceptible [employer] Other Bacteria identified Cx Nom (U) Reason for Exam Dysuria Urine ORGANISM: Klebsiella pneumoniae (O:KLEEDVINE) [place] Count 100,000 Aerobic SHYLA Charge (NUC86) ---- SUSCEPTIBILITY --- ORGANISM: O:KLEPNE ANTIBIOTIC INTERPRETATION SHYAL Amikacin S <16 Ampicillin R >16 Ampicillin/Sulbactam [...] RESISTANT TO ALL B-LACTAM DRUGS. PERFORMED BY: [facility] [address] [place] [address] PATHOLOGIST MESH CUTTER LOVELY COLE M.D. Normal [facility] Comment on above: Performed By: #### C UU #### [facility] [address] *URINE CULTUREon 12-31-2017 Bacteria identified in Urine by Culture Clinical Report: (D) Specimen: URINE Collected: 12/31/2017 13:40 Status: Final Last Updated: 01/04/2018 12:38 ISO (Final) Diphtheroids >100,000 Cfu/Ml 2 Morphologies ISO (Final) Aerococcus urinae 50,000 - 100,000 Cfu/mL Result changed by [email or web address] on 01/04/2018 12:38. The previous result was: ISO (Prelim) Normal The [facility] Comment on above: Performed By: #### 4 1000, 72980, 78900, 97442, 50346, 19132 ####[facility] CBC W/DIFFon 12-25-2017 ABS BASOPHILS 0.0 10*3/uL Normal 0.0-0.2 The [facility] Comment on above: Performed By: #### 5 0103 ####[facility] ABS IMM GRANS 0.0 10*3/uL Normal 0.0-0.2 The [facility] Comment on above: Performed By: #### 5 0103 ####[facility] ABS NEUTROPHILS 5.0 10*3/uL Normal 1.6-7.6 The [facility] Comment on above: Performed By: #### 5 0103 ####[facility] [place] [address], [facility] Basophils Auto #/vol (Bld) 0.1 % Normal 0.0-1.0 The [facility] Comment on above: Performed By: #### 5 0103 ####[facility]3000 [facility].[address] Eosinophils Auto #/vol (Bld) 0.1 10*3/uL Normal 0.0-0.5 The [facility] Comment on above: Performed By: #### 5 0103 ####[facility] Eosinophils/100 WBC Auto (Bld) 1.6 % Normal 0.0-6.0 The [facility] Comment on above: Performed By: #### 5 0103 ####[facility]3000 [facility].[address] Erythrocyte distribution width Auto Ratio (RBC) 14.6 % Normal 11.5-15.0 The [facility] Comment on above: Performed By: #### 5 0103 ####[facility] Hematocrit Auto Volume Fraction (Bld) 44.9 % Normal 36.0-45.0 The [facility] Comment on above: Performed By: #### 5 0103 ####[facility]3000 [facility].[address] Hemoglobin mass conc (Bld) 14.9 g/dL Normal 12.0-15.0 The [facility] Comment on above: Performed By: #### 3 ####[facility] IMMATURE GRANS 0.4 % Normal 0.0-1.0 [facility] Comment on above: Performed By: #### 5 0103 ####[facility]3000 [facility].[address] Lymphocytes Auto #/vol (Bld) 1.0 10*3/uL Low 1.2-4.0 The [facility] Comment on above: Performed By: #### 5 0103 ####[facility] Lymphocytes/100 WBC Auto (Bld) 14.9 % Low 20.0-45.0 The [facility] Comment on above: Performed By: #### 3 ####[facility] MCH Auto Entitic mass (RBC) 28.8 pg Normal 27.0-33.0 The [facility] Comment on above: Performed By: #### 102 ####[facility] MCHC Auto mass conc (RBC) 33.2 g/dL Normal 32.0-35.0 The [facility] Comment on above: Performed By: #### 3 ####[facility] MCV Auto Entitic volume (RBC) 86.7 fL Normal 82.0-98.0 The [facility] Comment on above: Performed By: #### 3 ####[facility]3000 [facility].[address] Monocytes Auto #/vol (Bld) 0.7 10*3/uL Normal 0.1-1.0 The [facility] Comment on above: Performed By: #### 102 ####[facility] MONOS 10.6 % Normal 5.0-12.0 [facility] Comment on above: Performed By: #### 5 0103 ####[facility]3000 [facility].[address] Neutrophils/100 WBC Auto (Bld) 72.4 % High 40.0-72.0 [facility] Comment on above: Performed By: #### 5 0103 ####[facility]3000 [facility].[address] Nucleated RBC/100 WBC Ratio (Bld) 0 % Normal 0-0 The [facility] Comment on above: Performed By: #### 5 0103 ####[address] PLAT CNT 203 10*3/uL Normal 150-400 The [facility] Comment on above: Performed By: #### 5 0103 ####[facility]3000 [facility].[address] RBC Auto #/vol (Bld) 5.18 10*6/uL High 3.80-5.00 Th [facility] Comment on above: Performed By: #### 5 0103 ####[facility]3000 [facility].[address] WBC Auto #/vol (Bld) 6.90 10*3/uL Normal 4.00-10.60 Th e [facility] Comment on above: Performed By: #### 5 0103 ####[facility]3000 [facility].[address] COMP METABOLIC PANELon 12-25 Albumin mass conc 4.3 g/dL Normal 3.5-5.7 [facility] Comment on above: Performed By: #### 4 1000, 11207, 21081, 12227, 97194, 13475 ####[address] ALKALINE PHOSPH 118 IU/L High 34-104 The [facility] Comment on above: Performed By: #### 4 1000, 99346, 89719, 50786, 02376, 66118 ####[facility] [id number], [facility] ALT enzyme act/vol 11 U/L Normal 7-52 The [facility] Comment on above: Performed By: #### 4 1000, 57147, 01589, 44267, 59443, 71039 ####[facility] [place] [address], [facility] AST enzyme act/vol 17 U/L Normal 13-39 The [facility] Comment on above: Performed By: #### 4 1000, 21735, 41674, 49235, 52711, 41716 ####[facility] [id number], [facility] Bilirubin mass conc 0.4 mg/dL Normal 0.3-1.0 The [facility] Comment on above: Performed By: #### 4 1000, 25909, 24271, 77928, 03029, 27780 ####[facility] [place] [address], [facility] Calcium mass conc 9.8 mg/dL Normal 8.6-10.3 The [facility] Comment on above: Performed By: #### 4 1000, 58759, 47183, 95494, 97190, 07341 ####[facility] [place] [address], [place] Chloride molar conc 104 mmol/L Normal 98-107 The [facility] Comment on above: Performed By: #### 4 1000, 29018, 68113, 68101, 66974, 42042 ####[facility] [place] [address], [place] CO2 molar conc 27 mmol/L Normal 21-31 The [facility] Comment on above: Performed By: #### 4 1000, 02760, 32047, 53041, 57748, 38582 ####[facility] [place] [address], [facility] Creatinine mass conc 0.76 mg/dL Normal 0.60-1.20 [facility] Comment on above: Performed By: #### 4 1000, 05587, 00431, 38643, 26226, 18474 ####[facility] [place] [address], [facility] GFR/1.73 sq M predicted among blacks MDRD vol rate/area (S/P/Bld) mL/min/{1.73_m2} Normal >60 The [facility] Comment on above: Performed By: #### 4 1000, 17029, 02883, 13412, 67399, 68181 ####[facility] [place] [address], [facility] GFR/1.73 sq M predicted among non-blacks MDRD vol rate/area (S/P/Bld) mL/min/{1.73_m2} Normal >60 The [facility] Comment on above: Performed By: #### 4 1000, 22533, 28935, 56625, 14728, 92140 ####[facility] [place] [address], [facility] Glucose mass conc 94 mg/dL Normal 70-100 [facility] Comment on above: Performed By: #### 4 1000, 52042, 22712, 95570, 89518, 05968 ####[facility] [place] [address], [facility] Potassium molar conc 3.9 mmol/L Normal 3.5-5.1 [facility] Comment on above: Performed By: #### 4 1000, 82650, 03083, 69969, 20202, 06125 ####[facility] Protein mass conc 7.2 g/dL Normal 6.0-8.3 The [facility] Comment on above: Performed By: #### 4 1000, 52533, 06952, 95813, 76464, 62241 ####[facility] Sodium molar conc 140 mmol/L Normal 136-145 The [facility] Comment on above: Performed By: #### 4 1000, 07477, 50822, 98504, 31123, 89141 ####[facility] Urea nitrogen mass conc 15 mg/dL Normal 7-25 The [facility] Comment on above: Performed By: #### 4 1000, 61268, 12418, 79279, 21321, 53824 ####[facility] DIRECT BILIon 12-25-2017 Bilirubin.direct mass conc 0.1 mg/dL Normal 0.0-0.2 The [facility] Comment on above: Performed By: #### 4 1000, 78949, 43425, 00191, 49678, 26873 ####[facility] EVEROLIMUS 30671ok 8 EVEROLIMUS 4.7 ng/mL Normal The [facility] Comment on above: Result Comment: Ther apeutic [...] the transplantcenter.Test developed and characteristics determined by [employer]. See Compliance Statement B: [email or web address] by [employer],[address] [place] [id number] [email or web address], Leonid Antonio MD - Lab. Director LIPID PROFILEon 12-25-2017 Cholesterol in HDL mass conc 51 mg/dL Normal 23-92 The [facility] Comment on above: Result Comment: Slig ht variation in normal range could be due to gender and/or age.HDL CHOLESTEROL REFERENCE RANGE:20 years and older Cardiovascular Risk> or =60 mg/dL [id number] TO 59 mg/dL Low Risk<40 mg/dL High Risk Performed By: #### 4 5506, 63600, 98091, 38501, 68471, 71576 ####[facility] Cholesterol in LDL mass conc 58 mg/dL Normal 0-130 The [facility] Comment on above: Result Comment: LDL IS A CALCULATIONLDL IS ONLY VALID IF THE TRIG IS LESS THAN 400. Performed By: #### 4 5506, 01866, 81418, 86596, 17314, 31544 ####[facility] [facility] [place] [address], [facility] Cholesterol mass conc 122 mg/dL Normal 120-200 The [facility] Comment on above: Result Comment: CHOL ESTEROL REFERENCE RANGE:20 YEARS AND OLDER CARDIOVASCULAR RISKLess than 200 mg/dl Low [id number] to 239 mg/dl Borderline Izyl207 mg/dl and greater High Risk Performed By: #### 4 5506, 81350, 25834, 22792, 94605, 05688 ####[facility] [place] [address], [facility] Cholesterol.total/Cho lesterol in HDL mass ratio 2.4 {ratio} Normal .0-4.5 The [facility] Comment on above: Performed By: #### 4 5506, 97325, 24138, 13062, 05672, 55005 ####[facility] NON-HDL CHOLESTEROL 71 mg/dL Normal The [facility] Comment on above: Performed By: #### 4 5506, 61235, 20006, 78239, 39706, 05218 ####[facility] Triglyceride mass conc 65 mg/dL Normal 40-149 The [facility] Comment on above: Result Comment: TRIG LYCERIDE REFERENCE RANGE:20 YEARS AND OLDER CARDIOVASCULAR RISKLESS THAN 150 mg/dl LOW [id number] TO 199 mg/dl BORDERLINE [id number] mg/dl AND GREATER HIGH RISK Performed By: #### 4 5506, 80623, 38004, 21861, 19340, 93212 ####[facility] VLDL CHOL 13 mg/dL Normal 0-40 The [facility] Comment on above: Performed By: #### 4 5506, 43840, 72625, 46073, 05365, 90876 ####[facility] [place] [address], [facility] MAGNESIUM BLOODon 12-25-2017 Magnesium mass conc 1.8 mg/dL Low 1.9-2.7 The [facility] Comment on above: Performed By: #### 4 1000, 58009, 73265, 68384, 73902, 76760 ####[facility] [place] [address], [facility] PHOSPHORUS BLOODon 09-27-201 8 Phosphate mass conc 3.4 mg/dL Normal 2.5-5.0 The [facility] Comment on above: Performed By: #### 4 5506, 87438, 95799, 97016, 28477, 52611 ####[facility]3000 [facility].[address] TACROLIMUSon 12-25-2017 Tacrolimus mass conc (Bld) 6.4 ng/mL Normal 5.0-20.0 The [facility] Comment on above: Result Comment: The [employer] Tacrolimus assay is a delayed one-step immunoassayfor the quantitative determination of tacrolimus in human whole bloodusing the chemiluminescent microparticle immunoassay (CMIA) technologywith flexible assay protocols, referred to as Chemiflex. Performed By: #### 4 1000, 87683, 46422, 83761, 18463, 69327 ####[facility]3000 [facility].[address] URIC ACID BLOODon 12-25-2017 Urate mass conc 4.7 mg/dL Normal 2.3-6.6 The [facility] Comment on above: Performed By: #### 4 5506, 44521, 15776, 31976, 63192, 33321 ####[facility]3000 [facility].[address] CBC W/DIFFon 10-30-2017 ABS BASOPHILS 0.0 10*3/uL Normal 0.0-0.2 The [facility] Comment on above: Performed By: #### 4 6447, 92768 ####[facility]3000 [facility].[address] ABS IMM GRANS 0.0 10*3/uL Normal 0.0-0.2 The [facility] Comment on above: Performed By: #### 4 6447, 30688 ####[facility] ABS NEUTROPHILS 4.9 10*3/uL Normal 1.6-7.6 The [facility] Comment on above: Performed By: #### 4 3247, 50692 ####[facility] Basophils Auto #/vol (Bld) 0.1 % Normal 0.0-1.0 The [facility] Comment on above: Performed By: #### 4 0399, 78835 ####[facility] Eosinophils Auto #/vol (Bld) 0.1 10*3/uL Normal 0.0-0.5 The [facility] Comment on above: Performed By: #### 4 5241, 77519 ####[facility] Eosinophils/100 WBC Auto (Bld) 1.4 % Normal 0.0-6.0 The [facility] Comment on above: Performed By: #### 4 9441, 18711 ####[place] [address] [facility] Erythrocyte distribution width Auto Ratio (RBC) 14.6 % Normal 11.5-15.0 The [facility] Comment on above: Performed By: #### 4 7578, 20680 ####[address] [address] [facility].[address] Hematocrit Auto Volume Fraction (Bld) 46.8 % High 36.0-45.0 The [facility] Comment on above: Performed By: #### 4 5718, 93510 ####[facility]3000 [facility].[address] Hemoglobin mass conc (Bld) 15.1 g/dL High 12.0-15.0 The [facility] Comment on above: Performed By: #### 7 1537, 65899 ####[facility] IMMATURE GRANS 0.4 % Normal 0.0-1.0 The [facility] Comment on above: Performed By: #### 4 2627, 13966 ####[address] [address] [address] Lymphocytes Auto #/vol (Bld) 1.2 10*3/uL Normal 1.2-4.0 The [facility] Comment on above: Performed By: #### 4 3350, 98276 ####[facility] Lymphocytes/100 WBC Auto (Bld) 16.6 % Low 20.0-45.0 The [facility] Comment on above: Performed By: #### 2 4128, 54802 ####[address] MCH Auto Entitic mass (RBC) 29.0 pg Normal 27.0-33.0 The [facility] Comment on above: Performed By: #### 4 5077, 91506 ####[address] MCHC Auto mass conc (RBC) 32.3 g/dL Normal 32.0-35.0 The [facility] Comment on above: Performed By: #### 1 9494, 06057 ####[address] MCV Auto Entitic volume (RBC) 89.8 fL Normal 82.0-98.0 The [facility] Comment on above: Performed By: #### 2 8592, 06790 ####[address] Monocytes Auto #/vol (Bld) 0.8 10*3/uL Normal 0.1-1.0 The [facility] Comment on above: Performed By: #### 9 7957, 88243 ####[facility] [place] [address], [facility] MONOS 11.9 % Normal 5.0-12.0 [facility] Comment on above: Performed By: #### 4 6447, 80515 ####[facility]3000 [facility] [place] [address], [facility] Neutrophils/100 WBC Auto (Bld) 69.6 % Normal 40.0-72.0 The [facility] Comment on above: Performed By: #### 4 6447, 97071 ####[facility]3000 [facility] [place] [address], [facility] Nucleated RBC/100 WBC Ratio (Bld) 0 % Normal 0-0 The [facility] Comment on above: Performed By: #### 4 6447, 66551 ####[facility]3000 [facility] [place] [address], [facility] PLAT CNT 200 10*3/uL Normal 150-400 The [facility] Comment on above: Performed By: #### 4 6447, 37589 ####[facility]3000 [facility] [place] [address], [facility] RBC Auto #/vol (Bld) 5.21 10*6/uL High 3.80-5.00 Th e [facility] Comment on above: Performed By: #### 4 6447, 02816 ####[facility]3000 [facility].[address] WBC Auto #/vol (Bld) 7.04 10*3/uL Normal 4.00-10.60 Th e [facility] Comment on above: Performed By: #### 4 6447, 86822 ####[facility]3000 [facility].[address] COMP METABOLIC PANELon 10-30 Albumin mass conc 4.1 g/dL Normal 3.5-5.7 [facility] Comment on above: Performed By: #### 7 1547, 94690 ####[facility] [facility] [id number], [facility] ALKALINE PHOSPH 114 IU/L High 34-104 The [facility] Comment on above: Performed By: #### 4 8547, 40889 ####[facility] [facility] [id number], [facility] ALT enzyme act/vol 16 U/L Normal 7-52 The [facility] Comment on above: Performed By: #### 8 6172, 52474 ####[facility]3000 [facility] [place] [address], [place] AST enzyme act/vol 18 U/L Normal 13-39 The [facility] Comment on above: Performed By: #### 9 5258, 12511 ####[facility] [place] [address].[place] [id number], [facility] Bilirubin mass conc 0.4 mg/dL Normal 0.3-1.0 The [facility] Comment on above: Performed By: #### 7 1113, 68386 ####[facility]3000 [facility].[place] [id number], [facility] Calcium mass conc 9.7 mg/dL Normal 8.6-10.3 The [facility] Comment on above: Performed By: #### 1 2298, 04744 ####[facility]3000 [facility].[place] [id number], [place] Chloride molar conc 105 mmol/L Normal 98-107 The [facility] Comment on above: Performed By: #### 5 3770, 42685 ####[facility] [facility] [id number], [place] CO2 molar conc 28 mmol/L Normal 21-31 The [facility] Comment on above: Performed By: #### 7 3484, 84526 ####[facility] [place] [address], [facility] Creatinine mass conc 0.82 mg/dL Normal 0.60-1.20 The [facility] Comment on above: Performed By: #### 4 2963, 48058 ####[facility] [place] [address], [facility] GFR/1.73 sq M predicted among blacks MDRD vol rate/area (S/P/Bld) mL/min/{1.73_m2} Normal >60 The [facility] Comment on above: Performed By: #### 4 1418, 02147 ####[facility] [place] [address], [facility] GFR/1.73 sq M predicted among non-blacks MDRD vol rate/area (S/P/Bld) mL/min/{1.73_m2} Normal >60 The [facility] Comment on above: Performed By: #### 4 6144, 11564 ####[facility] [place] [address], [facility] Glucose mass conc 90 mg/dL Normal 70-100 The [facility] Comment on above: Performed By: #### 4 0531, 99330 ####[facility] [place] [address], [facility] Potassium molar conc 4.1 mmol/L Normal 3.5-5.1 The [facility] Comment on above: Performed By: #### 4 3437, 06879 ####[facility] [place] [address], [facility] Protein mass conc 6.9 g/dL Normal 6.0-8.3 The [facility] Comment on above: Performed By: #### 4 9086, 10152 ####[facility] [place] [address], [place] Sodium molar conc 138 mmol/L Normal 136-145 The [facility] Comment on above: Performed By: #### 4 6447, 11636 ####[facility] Urea nitrogen mass conc 16 mg/dL Normal 7-25 [facility] Comment on above: Performed By: #### 4 6447, 91431 ####[facility] DIRECT BILIon 10-30-2017 Bilirubin.direct mass conc 0.0 mg/dL Normal 0.0-0.2 [facility] Comment on above: Performed By: #### 4 5506, 48606, 85998, 18823, 32130, 69158 ####[facility] EVEROLIMUS 78029lj 8 EVEROLIMUS 6.0 ng/mL Normal [facility] Comment [...] the transplantcenter.Test developed and characteristics determined by [employer]. See Compliance Statement B: [email or web address] by [employer],[address] [place] [address] [email or web address], Leonid Antonio MD - Lab. Director LIPID PROFILEon 10-30-2017 Cholesterol in HDL mass conc 50 mg/dL Normal 23-92 [facility] Comment on above: Result Comment: Slig ht variation in normal range could be due to gender and/or age.HDL CHOLESTEROL REFERENCE RANGE:20 years and older Cardiovascular Risk> or =60 mg/dL Hqrqndhkr44 TO 59 mg/dL Low Risk<40 mg/dL High Risk Performed By: #### 4 5506, 75138, 68600, 72069, 40135, 08705 ####[facility] [place] [address], [facility] Cholesterol in LDL mass conc 85 mg/dL Normal 0-130 [facility] Comment on above: Result Comment: LDL IS A CALCULATIONLDL IS ONLY VALID IF THE TRIG IS LESS THAN 400. Performed By: #### 4 5506, 35411, 28914, 69344, 81204, 18139 ####[facility] [place] [address], [place] Cholesterol mass conc 152 mg/dL Normal 120-200 [facility] Comment on above: Result Comment: CHOL ESTEROL REFERENCE RANGE:20 YEARS AND OLDER CARDIOVASCULAR RISKLess than 200 mg/dl Low Dzdh228 to 239 mg/dl Borderline Juzl750 mg/dl and greater High Risk Performed By: #### 4 5506, 22458, 20390, 46555, 07440, 23391 ####[facility] [place] [address], [place] Cholesterol.total/Cho lesterol in HDL mass ratio 3.0 {ratio} Normal .0-4.5 The [facility] Comment on above: Performed By: #### 4 5506, 13425, 17278, 63070, 29816, 85706 ####[facility] [place] [address], [place] NON-HDL CHOLESTEROL 102 mg/dL Normal The [facility] Comment on above: Performed By: #### 4 5506, 14688, 89134, 64087, 46455, 65270 ####[facility] Triglyceride mass conc 87 mg/dL Normal 40-149 The [facility] Comment on above: Result Comment: TRIG LYCERIDE REFERENCE RANGE:20 YEARS AND OLDER CARDIOVASCULAR RISKLESS THAN 150 mg/dl LOW ESOL169 TO 199 mg/dl BORDERLINE ZSDL842 mg/dl AND GREATER HIGH RISK Performed By: #### 4 5506, 61617, 39818, 38874, 94136, 60547 ####[facility] VLDL CHOL 17 mg/dL Normal 0-40 The [facility] Comment on above: Performed By: #### 4 5506, 91341, 69589, 88138, 33060, 26243 ####[facility] MAGNESIUM BLOODon 10-30-2017 Magnesium mass conc 1.9 mg/dL Normal 1.9-2.7 [facility] Comment on above: Performed By: #### 4 5506, 95107, 61163, 65595, 45245, 07584 ####[facility] PHOSPHORUS BLOODon 8 Phosphate mass conc 3.7 mg/dL Normal 2.5-5.0 [facility] Comment on above: Performed By: #### 4 5506, 69317, 56855, 12616, 35840, 46009 ####[facility] TACROLIMUSon 10-30-2017 Tacrolimus mass conc (Bld) 7.1 ng/mL Normal 5.0-20.0 The [facility] Comment on above: Result Comment: The [employer] Tacrolimus assay is a delayed one-step immunoassayfor the quantitative determination of tacrolimus in human whole bloodusing the chemiluminescent microparticle immunoassay (CMIA) technologywith flexible assay protocols, referred to as Chemiflex. Performed By: #### 9 9914 ####[place] [address] [address] URIC ACID BLOODon 10-30-2017 Urate mass conc 4.6 mg/dL Normal 2.3-6.6 The [facility] Comment on above: Performed By: #### 4 6447, 43212 ####[place] [address] [address] CBC W/DIFFon 10-23-2017 ABS BASOPHILS 0.0 10*3/uL Normal 0.0-0.2 The [facility] Comment on above: Performed By: #### 4 6447, 06703 ####[address] ABS IMM GRANS 0.1 10*3/uL Normal 0.0-0.2 The [facility] Comment on above: Performed By: #### 4 5347, 02894 ####[place] [address] [address] ABS NEUTROPHILS 5.8 10*3/uL Normal 1.6-7.6 The [facility] Comment on above: Performed By: #### 4 6447, 82809 ####[place] [address] [address] Basophils Auto #/vol (Bld) 0.2 % Normal 0.0-1.0 The [facility] Comment on above: Performed By: #### 4 6447, 87361 ####[address] Eosinophils Auto #/vol (Bld) 0.1 10*3/uL Normal 0.0-0.5 The [facility] Comment on above: Performed By: #### 4 6447, 77274 ####[facility] [place] [address], [facility] Eosinophils/100 WBC Auto (Bld) 0.7 % Normal 0.0-6.0 The [facility] Comment on above: Performed By: #### 4 2462, 38222 ####[facility] Erythrocyte distribution width Auto Ratio (RBC) 14.6 % Normal 11.5-15.0 The [facility] Comment on above: Performed By: #### 4 8147, 46075 ####[facility] [facility] Hematocrit Auto Volume Fraction (Bld) 44.2 % Normal 36.0-45.0 The [facility] Comment on above: Performed By: #### 6 4374, 79862 ####[facility] [facility] Hemoglobin mass conc (Bld) 14.2 g/dL Normal 12.0-15.0 The [facility] Comment on above: Performed By: #### 4 6922, 35336 ####[facility] [facility].[address] IMMATURE GRANS 1.4 % High 0.0-1.0 The [facility] Comment on above: Performed By: #### 2 2818, 63138 ####[facility] Lymphocytes Auto #/vol (Bld) 2.1 10*3/uL Normal 1.2-4.0 The [facility] Comment on above: Performed By: #### 2 7141, 02931 ####[facility] [place] [address], [facility] Lymphocytes/100 WBC Auto (Bld) 22.5 % Normal 20.0-45.0 The [facility] Comment on above: Performed By: #### 4 5347, 39871 ####[facility] [facility] MCH Auto Entitic mass (RBC) 28.5 pg Normal 27.0-33.0 The [facility] Comment on above: Performed By: #### 4 8824, 14016 ####[facility] [facility].[address] MCHC Auto mass conc (RBC) 32.1 g/dL Normal 32.0-35.0 The [facility] Comment on above: Performed By: #### 4 5609, 25336 ####[facility] [facility] MCV Auto Entitic volume (RBC) 88.8 fL Normal 82.0-98.0 The [facility] Comment on above: Performed By: #### 4 3324, 11315 ####[facility] [facility].[address] Monocytes Auto #/vol (Bld) 1.1 10*3/uL High 0.1-1.0 The [facility] Comment on above: Performed By: #### 4 5547, 39951 ####[facility] [facility].[address] MONOS 12.0 % Normal 5.0-12.0 The [facility] Comment on above: Performed By: #### 4 8347, 87975 ####[facility] [facility].[address] Neutrophils/100 WBC Auto (Bld) 63.2 % Normal 40.0-72.0 The [facility] Comment on above: Performed By: #### 4 2347, 33450 ####[facility] Nucleated RBC/100 WBC Ratio (Bld) 0 % Normal 0-0 [facility] Comment on above: Performed By: #### 4 6447, 91452 ####[facility] [facility].[address] PLAT CNT 241 10*3/uL Normal 150-400 The [facility] Comment on above: Performed By: #### 4 6447, 24352 ####[facility] [facility].[address] RBC Auto #/vol (Bld) 4.98 10*6/uL Normal 3.80-5.00 Th e [facility] Comment on above: Performed By: #### 4 6447, 43938 ####[facility] [facility].[address] WBC Auto #/vol (Bld) 9.14 10*3/uL Normal 4.00-10.60 Th e [facility] Comment on above: Performed By: #### 4 6447, 70188 ####[facility] [facility].[address] COMP METABOLIC PANELon 10-23 Albumin mass conc 3.8 g/dL Normal 3.5-5.7 [facility] Comment on above: Performed By: #### 4 6447, 06939 ####[facility] [facility].[address] ALKALINE PHOSPH 96 IU/L Normal 34-104 The [facility] Comment on above: Performed By: #### 4 6447, 01774 ####[facility] [facility].[address] ALT enzyme act/vol 15 U/L Normal 7-52 [facility] Comment on above: Performed By: #### 4 6447, 05151 ####[facility] [facility] [place] [address], [facility] AST enzyme act/vol 13 U/L Normal 13-39 The [facility] Comment on above: Performed By: #### 4 2973, 87005 ####[facility] [place] [address], [facility] Bilirubin mass conc 0.4 mg/dL Normal 0.3-1.0 The [facility] Comment on above: Performed By: #### 4 6529, 03421 ####[facility] [place] [address], [facility] Calcium mass conc 9.2 mg/dL Normal 8.6-10.3 [facility] Comment on above: Performed By: #### 3 6361, 88800 ####[facility] [place] [address], [facility] Chloride molar conc 102 mmol/L Normal 98-107 [facility] Comment on above: Performed By: #### 7 3342, 14321 ####[facility] [place] [address], [facility] CO2 molar conc 29 mmol/L Normal 21-31 The [facility] Comment on above: Performed By: #### 0 4899, 04493 ####[facility] [place] [address], [facility] Creatinine mass conc 0.80 mg/dL Normal 0.60-1.20 The [facility] Comment on above: Performed By: #### 3 3795, 47973 ####[facility] [place] [address], [facility] GFR/1.73 sq M predicted among blacks MDRD vol rate/area (S/P/Bld) mL/min/{1.73_m2} Normal >60 The [facility] Comment on above: Performed By: #### 2 3949, 33134 ####[facility] [facility] [place] [address], [facility] GFR/1.73 sq M predicted among non-blacks MDRD vol rate/area (S/P/Bld) mL/min/{1.73_m2} Normal >60 The [facility] Comment on above: Performed By: #### 4 6447, 99640 ####[facility] [facility] [place] [address], [facility] Glucose mass conc 85 mg/dL Normal 70-100 The [facility] Comment on above: Performed By: #### 4 6447, 19845 ####[address] [place] [address], [facility] Potassium molar conc 3.3 mmol/L Low 3.5-5.1 The [facility] Comment on above: Performed By: #### 4 6447, 43640 ####[address] Protein mass conc 6.5 g/dL Normal 6.0-8.3 The [facility] Comment on above: Performed By: #### 4 7347, 64921 ####[place] [address] [facility] [place] [address], [facility] Sodium molar conc 139 mmol/L Normal 136-145 The [facility] Comment on above: Performed By: #### 4 8047, 83063 ####[place] [address] [facility] [place] [address], [facility] Urea nitrogen mass conc 18 mg/dL Normal 7-25 The [facility] Comment on above: Performed By: #### 4 5655, 30334 ####[place] [address] [facility] [place] [address], [facility] DIRECT BILIon 10-23-2017 Bilirubin.direct mass conc 0.1 mg/dL Normal 0.0-0.2 The [facility] Comment on above: Performed By: #### 4 6447, 13830 ####[facility] EVEROLIMUS 89088li 8 EVEROLIMUS 4.0 ng/mL Normal [facility] Comment [...] the transplantcenter.Test developed and characteristics determined by [employer]. See Compliance Statement B: [email or web address] by [employer],[address] [place] [id number] [email or web address], Leonid Antonio MD - Lab. Director LIPID PROFILEon 10-23-2017 Cholesterol in HDL mass conc 53 mg/dL Normal 23-92 The [facility] Comment on above: Result Comment: Slig ht variation in normal range could be due to gender and/or age.HDL CHOLESTEROL REFERENCE RANGE:20 years and older Cardiovascular Risk> or =60 mg/dL [id number] TO 59 mg/dL Low Risk<40 mg/dL High Risk Performed By: #### 4 5393, 39068 ####[facility] Cholesterol in LDL mass conc 68 mg/dL Normal 0-130 The [facility] Comment on above: Result Comment: LDL IS A CALCULATIONLDL IS ONLY VALID IF THE TRIG IS LESS THAN 400. Performed By: #### 4 3605, 82582 ####[facility] [facility] [place] [address], [facility] Cholesterol mass conc 135 mg/dL Normal 120-200 The [facility] Comment on above: Result Comment: CHOL ESTEROL REFERENCE RANGE:20 YEARS AND OLDER CARDIOVASCULAR RISKLess than 200 mg/dl Low Zsii917 to 239 mg/dl Borderline Zmec170 mg/dl and greater High Risk Performed By: #### 4 8902, 43903 ####[facility] [facility].[address] Cholesterol.total/Cho lesterol in HDL mass ratio 2.5 {ratio} Normal .0-4.5 [facility] Comment on above: Performed By: #### 4 9767, 25420 ####[facility] [facility].[address] NON-HDL CHOLESTEROL 82 mg/dL Normal The [facility] Comment on above: Performed By: #### 4 0673, 77503 ####[facility] [facility] [place] [address], [facility] Triglyceride mass conc 72 mg/dL Normal 40-149 The [facility] Comment on above: Result Comment: TRIG LYCERIDE REFERENCE RANGE:20 YEARS AND OLDER CARDIOVASCULAR RISKLESS THAN 150 mg/dl LOW [id number] TO 199 mg/dl BORDERLINE [id number] mg/dl AND GREATER HIGH RISK Performed By: #### 4 4954, 81602 ####[facility] [facility] [place] [address], [facility] VLDL CHOL 14 mg/dL Normal 0-40 The [facility] Comment on above: Performed By: #### 4 5681, 47710 ####[facility] [facility] [place] [address], [facility] MAGNESIUM BLOODon 10-23-2017 Magnesium mass conc 1.8 mg/dL Low 1.9-2.7 The [facility] Comment on above: Performed By: #### 4 6447, 11382 ####[address] PHOSPHORUS BLOODon 8 Phosphate mass conc 3.7 mg/dL Normal 2.5-5.0 [facility] Comment on above: Performed By: #### 4 7047, 01334 ####[facility] TACROLIMUSon 10-23-2017 Tacrolimus mass conc (Bld) 2.6 ng/mL Low 5.0-20.0 The [facility] Comment on above: Result Comment: The [employer] Tacrolimus assay is a delayed one-step immunoassayfor the quantitative determination of tacrolimus in human whole bloodusing the chemiluminescent microparticle immunoassay (CMIA) technologywith flexible assay protocols, referred to as Chemiflex. Performed By: #### 4 2547, 00884 ####[place] [address] [address] URIC ACID BLOODon 10-23-2017 Urate mass conc 4.3 mg/dL Normal 2.3-6.6 The [facility] Comment on above: Performed By: #### 4 9272, 90775 ####[place] [address] [address] CBC W/DIFFon 09-25-2017 ABS BASOPHILS 0.0 10*3/uL Normal 0.0-0.2 The [facility] Comment on above: Performed By: #### 4 1000, 59853, 99157, 38791, 84270, 63050 ####[address] ABS IMM GRANS 0.0 10*3/uL Normal 0.0-0.2 The [facility] Comment on above: Performed By: #### 4 1000, 83924, 17004, 15504, 90213, 88555 ####[facility] [place] [address], [facility] ABS NEUTROPHILS 4.4 10*3/uL Normal 1.6-7.6 The [facility] Comment on above: Performed By: #### 4 1000, 86188, 34380, 65445, 02860, 96791 ####[facility] Basophils Auto #/vol (Bld) 0.2 % Normal 0.0-1.0 The [facility] Comment on above: Performed By: #### 4 1000, 52298, 68935, 93837, 62218, 56361 ####[facility] [place] [address], [facility] Eosinophils Auto #/vol (Bld) 0.1 10*3/uL Normal 0.0-0.5 The [facility] Comment on above: Performed By: #### 4 1000, 65318, 66028, 59604, 27693, 89945 ####[facility] [facility] Eosinophils/100 WBC Auto (Bld) 2.2 % Normal 0.0-6.0 The [facility] Comment on above: Performed By: #### 4 1000, 41310, 63816, 18586, 26276, 30525 ####[facility] Erythrocyte distribution width Auto Ratio (RBC) 14.0 % Normal 11.5-15.0 The [facility] Comment on above: Performed By: #### 4 1000, 05647, 09671, 86584, 52502, 10549 ####[facility] Hematocrit Auto Volume Fraction (Bld) 44.8 % Normal 36.0-45.0 The [facility] Comment on above: Performed By: #### 4 1000, 73231, 87575, 69664, 12038, 03336 ####[facility]3000 [facility].[address] Hemoglobin mass conc (Bld) 14.5 g/dL Normal 12.0-15.0 The [facility] Comment on above: Performed By: #### 4 1000, 30244, 71746, 89366, 51844, 27885 ####[facility] IMMATURE GRANS 0.3 % Normal 0.0-1.0 The [facility] Comment on above: Performed By: #### 4 1000, 47343, 93164, 53833, 55970, 12767 ####[place] [address] [facility].[address] Lymphocytes Auto #/vol (Bld) 1.1 10*3/uL Low 1.2-4.0 The [facility] Comment on above: Performed By: #### 4 1000, 08601, 17778, 10070, 77941, 46488 ####[facility]3000 [facility].[address] Lymphocytes/100 WBC Auto (Bld) 17.0 % Low 20.0-45.0 The [facility] Comment on above: Performed By: #### 4 1000, 38232, 28299, 81873, 86988, 30799 ####[facility]3000 [facility].[address] MCH Auto Entitic mass (RBC) 28.6 pg Normal 27.0-33.0 The [facility] Comment on above: Performed By: #### 4 1000, 96614, 29805, 88848, 79679, 74554 ####[facility]3000 [facility].[address] MCHC Auto mass conc (RBC) 32.4 g/dL Normal 32.0-35.0 The [facility] Comment on above: Performed By: #### 4 1000, 42555, 60146, 04430, 70687, 68103 ####[facility] MCV Auto Entitic volume (RBC) 88.4 fL Normal 82.0-98.0 The [facility] Comment on above: Performed By: #### 4 1000, 17565, 76677, 81548, 75434, 86992 ####[facility] Monocytes Auto #/vol (Bld) 0.7 10*3/uL Normal 0.1-1.0 The [facility] Comment on above: Performed By: #### 4 1000, 72860, 84681, 42885, 33797, 03497 ####[facility] MONOS 11.5 % Normal 5.0-12.0 The [facility] Comment on above: Performed By: #### 4 1000, 89751, 22758, 91879, 47130, 64412 ####[facility] Neutrophils/100 WBC Auto (Bld) 68.8 % Normal 40.0-72.0 The [facility] Comment on above: Performed By: #### 4 1000, 38525, 86780, 65171, 57777, 86079 ####[facility] Nucleated RBC/100 WBC Ratio (Bld) 0 % Normal 0-0 The [facility] Comment on above: Performed By: #### 4 1000, 09677, 06609, 90125, 12962, 30461 ####[facility] PLAT CNT 212 10*3/uL Normal 150-400 The [facility] Comment on above: Performed By: #### 4 1000, 51719, 88964, 54128, 73879, 73533 ####[facility] RBC Auto #/vol (Bld) 5.07 10*6/uL High 3.80-5.00 Th e [facility] Comment on above: Performed By: #### 4 1000, 41363, 95493, 90096, 60637, 47274 ####[facility] WBC Auto #/vol (Bld) 6.34 10*3/uL Normal 4.00-10.60 Th e [facility] Comment on above: Performed By: #### 4 1000, 63397, 61268, 21649, 21236, 68265 ####[facility] [facility] COMP METABOLIC PANELon 09-25 Albumin mass conc 4.0 g/dL Normal 3.5-5.7 [facility] Comment on above: Performed By: #### 4 6447, 32857 ####[facility] [facility].[address] ALKALINE PHOSPH 112 IU/L High 34-104 The [facility] Comment on above: Performed By: #### 4 6447, 58026 ####[facility] ALT enzyme act/vol 11 U/L Normal 7-52 The [facility] Comment on above: Performed By: #### 4 6447, 18271 ####[facility] AST enzyme act/vol 17 U/L Normal 13-39 The [facility] Comment on above: Performed By: #### 4 6447, 49515 ####[facility] [place] [address], [place] Bilirubin mass conc 0.5 mg/dL Normal 0.3-1.0 The [facility] Comment on above: Performed By: #### 4 6447, 77322 ####[facility] [place] [address], [place] Calcium mass conc 9.6 mg/dL Normal 8.6-10.3 [facility] Comment on above: Performed By: #### 4 6447, 65994 ####[facility] [place] [address], [place] Chloride molar conc 104 mmol/L Normal 98-107 The [facility] Comment on above: Performed By: #### 4 9247, 67851 ####[facility] [place] [address], [place] CO2 molar conc 28 mmol/L Normal 21-31 The [facility] Comment on above: Performed By: #### 4 1347, 91995 ####[facility] [place] [address], [place] Creatinine mass conc 0.83 mg/dL Normal 0.60-1.20 [facility] Comment on above: Performed By: #### 4 6447, 39335 ####[facility] [place] [address], [place] GFR/1.73 sq M predicted among blacks MDRD vol rate/area (S/P/Bld) mL/min/{1.73_m2} Normal >60 The [facility] Comment on above: Performed By: #### 4 6447, 54146 ####[facility] [place] [address], [place] GFR/1.73 sq M predicted among non-blacks MDRD vol rate/area (S/P/Bld) mL/min/{1.73_m2} Normal >60 [facility] Comment on above: Performed By: #### 4 7430, 12743 ####[facility] [place] [address], [facility] Glucose mass conc 91 mg/dL Normal 70-100 The [facility] Comment on above: Performed By: #### 4 5046, 55551 ####[facility] [place] [address], [facility] Potassium molar conc 3.9 mmol/L Normal 3.5-5.1 The [facility] Comment on above: Performed By: #### 4 2226, 97446 ####[facility] [place] [address], [facility] Protein mass conc 7.0 g/dL Normal 6.0-8.3 The [facility] Comment on above: Performed By: #### 4 0911, 28688 ####[facility] [place] [address], [facility] Sodium molar conc 140 mmol/L Normal 136-145 The [facility] Comment on above: Performed By: #### 4 4037, 96543 ####[facility] [place] [address], [facility] Urea nitrogen mass conc 15 mg/dL Normal 7-25 The [facility] Comment on above: Performed By: #### 4 8723, 80463 ####[facility] [place] [address], [facility] DIRECT BILIon 09-25-2017 Bilirubin.direct mass conc 0.1 mg/dL Normal 0.0-0.2 The [facility] Comment on above: Performed By: #### 4 3024, 34245 ####[facility] [place] [address], [facility] EVEROLIMUS [id number] 8 EVEROLIMUS 5.1 ng/mL Normal The [facility] Comment on above: Result Comment: Ther apeutic [...] the transplantcenter.Test developed and characteristics determined by [facility]. See Compliance Statement B: [email or web address] by [employer],[address] [place] [id number] [email or web address], Leonid Antonio MD - Lab. Director LIPID PROFILEon 09-25-2017 Cholesterol in HDL mass conc 48 mg/dL Normal 23-92 The [facility] Comment on above: Result Comment: Slig ht variation in normal range could be due to gender and/or age.HDL CHOLESTEROL REFERENCE RANGE:20 years and older Cardiovascular Risk> or =60 mg/dL Yjyenlpab02 TO 59 mg/dL Low Risk<40 mg/dL High Risk Performed By: #### 4 6499, 92152 ####[facility] [place] [address], [facility] Cholesterol in LDL mass conc 69 mg/dL Normal 0-130 The [facility] Comment on above: Result Comment: LDL IS A CALCULATIONLDL IS ONLY VALID IF THE TRIG IS LESS THAN 400. Performed By: #### 4 9790, 91322 ####[facility] [place] [address], [facility] Cholesterol mass conc 138 mg/dL Normal 120-200 The [facility] Comment on above: Result Comment: CHOL ESTEROL REFERENCE RANGE:20 YEARS AND OLDER CARDIOVASCULAR RISKLess than 200 mg/dl Low Mppn805 to 239 mg/dl Borderline Zwor546 mg/dl and greater High Risk Performed By: #### 4 9647, 62143 ####[facility] [place] [address], [facility] Cholesterol.total/Cho lesterol in HDL mass ratio 2.9 {ratio} Normal .0-4.5 The [facility] Comment on above: Performed By: #### 4 2108, 84737 ####[facility] NON-HDL CHOLESTEROL 90 mg/dL Normal The [facility] Comment on above: Performed By: #### 4 7017, 47045 ####[facility]3000 [facility].[address] Triglyceride mass conc 103 mg/dL Normal 40-149 The [facility] Comment on above: Result Comment: TRIG LYCERIDE REFERENCE RANGE:20 YEARS AND OLDER CARDIOVASCULAR RISKLESS THAN 150 mg/dl LOW [id number] TO 199 mg/dl BORDERLINE PPHI810 mg/dl AND GREATER HIGH RISK Performed By: #### 4 5514, 27445 ####[facility] [place] [address], [facility] VLDL CHOL 21 mg/dL Normal 0-40 The [facility] Comment on above: Performed By: #### 4 6557, 19236 ####[facility] [place] [address], [facility] MAGNESIUM BLOODon 09-25-2017 Magnesium mass conc 1.8 mg/dL Low 1.9-2.7 The [facility] Comment on above: Performed By: #### 4 6447, 62000 ####[facility] [place] [address].[address] PHOSPHORUS BLOODon 8 Phosphate mass conc 3.4 mg/dL Normal 2.5-5.0 The [facility] Comment on above: Performed By: #### 4 6447, 58494 ####[address] TACROLIMUSon 09-25-2017 Tacrolimus mass conc (Bld) 3.6 ng/mL Low 5.0-20.0 The [facility] Comment on above: Result Comment: The [employer] TECHNOLOGY AUDITOR Tacrolimus assay is a delayed one-step immunoassayfor the quantitative determination of tacrolimus in human whole bloodusing the chemiluminescent microparticle immunoassay (CMIA) technologywith flexible assay protocols, referred to as Chemiflex. Performed By: #### 4 6447, 02368 ####[address] URIC ACID BLOODon 09-25-2017 Urate mass conc 4.7 mg/dL Normal 2.3-6.6 The [facility] Comment on above: Performed By: #### 4 6447, 99690 ####[address] BK VIRUS QUANTITATION PCR BL OODon 08-26-2017 BKV QUANT PCR Not detected Normal The [facility] Comment on above: Result Comment: Meth od: BK virus was measured by quantitative polymerase chain reactionusing a TaqMan probe targeting the polyomavirus BK SHOE STOCK ASSOCIATE-1 gene.The lower limit of quantitation of the assay is 500 copies of BK genomeper milliliter of plasma or urine, and any detectable BK DNA below thatlevel is reported as: Detected, <500 copies/ml. Serial BK virusmeasurement can be used to monitor disease activity. (Reference:Kelsie vaughanl. J CLIN MICRO 2004; 42:5828-5681).This test was developed and its performance characteristics determinedby the [facility] Molecular Diagnostics Laboratory. It has not been approvedby the US Food and Drug Administration. However, such approval is notrequired for clinical implementation, and test results have been shownto be clinically useful. This laboratory is CAP accredited and CLIAcertified to perform high complexity testing. Performed By: #### 4 1000, 66362, 99502, 10330, 48615, 24230 ####[facility] LOG 10 COPIES Not detected Normal The [facility] Comment on above: Performed By: #### 4 1000, 02933, 37595, 38573, 68766, 19619 ####[facility] CBC W/DIFFon 08-26-2017 ABS BASOPHILS 0.0 10*3/uL Normal 0.0-0.2 The [facility] Comment on above: Performed By: #### 4 1000, 67414, 77965, 52446, 23569, 00844 ####[facility] ABS IMM GRANS 0.0 10*3/uL Normal 0.0-0.2 The [facility] Comment on above: Performed By: #### 4 1000, 07900, 53885, 99607, 29981, 11984 ####[facility] ABS NEUTROPHILS 4.5 10*3/uL Normal 1.6-7.6 The [facility] Comment on above: Performed By: #### 4 1000, 58107, 96537, 25621, 63109, 90381 ####[facility] Basophils Auto #/vol (Bld) 0.2 % Normal 0.0-1.0 The [facility] Comment on above: Performed By: #### 4 1000, 12905, 48133, 97038, 44432, 23825 ####[facility] Eosinophils Auto #/vol (Bld) 0.2 10*3/uL Normal 0.0-0.5 The [facility] Comment on above: Performed By: #### 4 1000, 70280, 73604, 02443, 32594, 10126 ####[facility] Eosinophils/100 WBC Auto (Bld) 2.4 % Normal 0.0-6.0 The [facility] Comment on above: Performed By: #### 4 1000, 33555, 95459, 43004, 78437, 08104 ####[facility] [facility] Erythrocyte distribution width Auto Ratio (RBC) 14.0 % Normal 11.5-15.0 The [facility] Comment on above: Performed By: #### 4 1000, 38653, 40131, 93829, 15062, 12749 ####[facility] [facility] Hematocrit Auto Volume Fraction (Bld) 44.9 % Normal 36.0-45.0 The [facility] Comment on above: Performed By: #### 4 1000, 14512, 51714, 97913, 61844, 30474 ####[facility] [facility] Hemoglobin mass conc (Bld) 14.9 g/dL Normal 12.0-15.0 The [facility] Comment on above: Performed By: #### 4 1000, 96481, 13173, 91615, 81239, 26981 ####[facility] IMMATURE GRANS 0.5 % Normal 0.0-1.0 The [facility] Comment on above: Performed By: #### 4 1000, 31912, 34740, 14099, 87523, 49516 ####[facility] [facility] Lymphocytes Auto #/vol (Bld) 1.0 10*3/uL Low 1.2-4.0 The [facility] Comment on above: Performed By: #### 4 1000, 93259, 60797, 44678, 63618, 33647 ####[facility]3000 [facility].[address] Lymphocytes/100 WBC Auto (Bld) 15.8 % Low 20.0-45.0 The [facility] Comment on above: Performed By: #### 4 1000, 12421, 60561, 63826, 14017, 67257 ####[facility]3000 [facility].[address] MCH Auto Entitic mass (RBC) 29.1 pg Normal 27.0-33.0 The [facility] Comment on above: Performed By: #### 4 1000, 77397, 37757, 86589, 58804, 95653 ####[facility]3000 [facility].[address] MCHC Auto mass conc (RBC) 33.2 g/dL Normal 32.0-35.0 The [facility] Comment on above: Performed By: #### 4 1000, 64355, 20944, 36341, 57330, 60247 ####[facility]3000 [facility].[address] MCV Auto Entitic volume (RBC) 87.7 fL Normal 82.0-98.0 The [facility] Comment on above: Performed By: #### 4 1000, 00992, 25498, 28660, 08202, 58637 ####[facility] Monocytes Auto #/vol (Bld) 0.7 10*3/uL Normal 0.1-1.0 The [facility] Comment on above: Performed By: #### 4 1000, 66785, 39581, 88816, 07259, 01294 ####[facility] [place] [address], [facility] MONOS 10.6 % Normal 5.0-12.0 [facility] Comment on above: Performed By: #### 4 1000, 58649, 08870, 79679, 02627, 88575 ####[facility] [place] [address], [facility] Neutrophils/100 WBC Auto (Bld) 70.5 % Normal 40.0-72.0 [facility] Comment on above: Performed By: #### 4 1000, 72344, 97973, 29281, 08511, 93625 ####[facility] Nucleated RBC/100 WBC Ratio (Bld) 0 % Normal 0-0 [facility] Comment on above: Performed By: #### 4 1000, 85480, 63125, 87354, 89734, 54661 ####[facility] PLAT CNT 231 10*3/uL Normal 150-400 The [facility] Comment on above: Performed By: #### 4 1000, 44099, 21510, 01866, 50581, 21314 ####[facility] [place] [address], [facility] RBC Auto #/vol (Bld) 5.12 10*6/uL High 3.80-5.00 Th e [facility] Comment on above: Performed By: #### 4 1000, 27138, 44126, 89796, 80485, 88691 ####[facility] [place] [address], [facility] WBC Auto #/vol (Bld) 6.32 10*3/uL Normal 4.00-10.60 Th e [facility] Comment on above: Performed By: #### 4 1000, 30647, 11677, 05208, 33942, 12807 ####[facility] COMP METABOLIC PANELon 08-26 Albumin mass conc 4.3 g/dL Normal 3.5-5.7 The [facility] Comment on above: Performed By: #### 4 1000, 06323, 94365, 54496, 41878, 15074 ####[facility] ALKALINE PHOSPH 125 IU/L High 34-104 The [facility] Comment on above: Performed By: #### 4 1000, 14721, 26112, 90005, 51594, 31950 ####[facility] ALT enzyme act/vol 17 U/L Normal 7-52 The [facility] Comment on above: Performed By: #### 4 1000, 96364, 02180, 04689, 43949, 81901 ####[facility] [place] [address], [facility] AST enzyme act/vol 23 U/L Normal 13-39 The [facility] Comment on above: Performed By: #### 4 1000, 31443, 04803, 96933, 15958, 75260 ####[facility] [place] [address], [facility] Bilirubin mass conc 0.4 mg/dL Normal 0.3-1.0 [facility] Comment on above: Performed By: #### 4 1000, 23365, 76658, 27975, 10323, 33675 ####[facility] [place] [address], [facility] Calcium mass conc 9.6 mg/dL Normal 8.6-10.3 [facility] Comment on above: Performed By: #### 4 1000, 49266, 67586, 79281, 23321, 34687 ####[facility] [place] [address], [facility] Chloride molar conc 104 mmol/L Normal 98-107 The [facility] Comment on above: Performed By: #### 4 1000, 15362, 11179, 84355, 51996, 04356 ####[facility] [place] [address], [place] CO2 molar conc 27 mmol/L Normal 21-31 The [facility] Comment on above: Performed By: #### 4 1000, 46337, 06837, 94113, 55348, 57496 ####[facility] [place] [address], [place] Creatinine mass conc 0.77 mg/dL Normal 0.60-1.20 [facility] Comment on above: Performed By: #### 4 1000, 90650, 07243, 86215, 87699, 77205 ####[facility] [place] [address], [facility] GFR/1.73 sq M predicted among blacks MDRD vol rate/area (S/P/Bld) mL/min/{1.73_m2} Normal >60 The [facility] Comment on above: Performed By: #### 4 1000, 77199, 89882, 93725, 38711, 99480 ####[facility] [place] [address], [place] GFR/1.73 sq M predicted among non-blacks MDRD vol rate/area (S/P/Bld) mL/min/{1.73_m2} Normal >60 The [facility] Comment on above: Performed By: #### 4 1000, 28335, 18490, 90496, 32375, 18168 ####[facility] [place] [address], [facility] Glucose mass conc 95 mg/dL Normal 70-100 The [facility] Comment on above: Performed By: #### 4 1000, 31556, 65181, 11647, 85448, 72413 ####[facility] [place] [address], [facility] Potassium molar conc 4.1 mmol/L Normal 3.5-5.1 The [facility] Comment on above: Performed By: #### 4 1000, 38860, 03073, 09136, 24684, 47821 ####[facility] [place] [address], [facility] Protein mass conc 7.3 g/dL Normal 6.0-8.3 The [facility] Comment on above: Performed By: #### 4 1000, 45292, 92233, 73100, 61583, 63623 ####[facility] [place] [address], [facility] Sodium molar conc 139 mmol/L Normal 136-145 The [facility] Comment on above: Performed By: #### 4 1000, 09308, 36088, 98953, 46751, 25575 ####[facility] [place] [address], [facility] Urea nitrogen mass conc 12 mg/dL Normal 7-25 The [facility] Comment on above: Performed By: #### 4 1000, 47980, 18547, 14751, 89054, 94591 ####[facility] [id number], [facility] DIRECT BILIon 08-26-2017 Bilirubin.direct mass conc 0.1 mg/dL Normal 0.0-0.2 The [facility] Comment on above: Performed By: #### 4 1000, 75071, 05073, 14123, 53838, 43763 ####[facility] EVEROLIMUS 71192aw 8 EVEROLIMUS 5.6 ng/mL Normal [facility] Comment [...] the transplantcenter.Test developed and characteristics determined by [employer]. See Compliance Statement B: [email or web address] by [employer],[address] [place] [id number] [email or web address], Leonid Antonio MD - Lab. Director HEMOGLOBIN A1Con 08-26-2017 Glucose mass conc 114 mg/dL Normal 70-126 [facility] Comment on above: Performed By: #### 4 1000, 24847, 81549, 52169, 82604, 05468 ####[facility] Hemoglobin A1c/Hemoglobin.total mass fraction (Bld) 5.6 % Normal 4.0-6.0 The [facility] Comment on above: Performed By: #### 4 1000, 98225, 99891, 52555, 99840, 32994 ####[facility] [place] [address], [facility] LIPID PROFILEon 08-26-2017 Cholesterol in HDL mass conc 49 mg/dL Normal 23-92 The [facility] Comment on above: Result Comment: Slig ht variation in normal range could be due to gender and/or age.HDL CHOLESTEROL REFERENCE RANGE:20 years and older Cardiovascular Risk> or =60 mg/dL Rokadvzhd93 TO 59 mg/dL Low Risk<40 mg/dL High Risk Performed By: #### 4 1000, 73878, 70489, 76742, 92328, 62487 ####[facility] [place] [address], [facility] Cholesterol in LDL mass conc 76 mg/dL Normal 0-130 The [facility] Comment on above: Result Comment: LDL IS A CALCULATIONLDL IS ONLY VALID IF THE TRIG IS LESS THAN 400. Performed By: #### 4 1000, 78612, 50762, 50822, 70527, 24361 ####[facility] [place] [address], [facility] Cholesterol mass conc 152 mg/dL Normal 120-200 The [facility] Comment on above: Result Comment: CHOL ESTEROL REFERENCE RANGE:20 YEARS AND OLDER CARDIOVASCULAR RISKLess than 200 mg/dl Low Nnak353 to 239 mg/dl Borderline Mkzb374 mg/dl and greater High Risk Performed By: #### 4 1000, 01180, 73788, 83524, 70208, 85994 ####[facility] [place] [address], [facility] Cholesterol.total/Cho lesterol in HDL mass ratio 3.1 {ratio} Normal .0-4.5 The [facility] Comment on above: Performed By: #### 4 1000, 31919, 79347, 74026, 67729, 57803 ####[facility] [place] [address], [place] NON-HDL CHOLESTEROL 103 mg/dL Normal The [facility] Comment on above: Performed By: #### 4 1000, 94436, 59745, 28709, 54719, 78992 ####[facility] Triglyceride mass conc 133 mg/dL Normal 40-149 The [facility] Comment on above: Result Comment: TRIG LYCERIDE REFERENCE RANGE:20 YEARS AND OLDER CARDIOVASCULAR RISKLESS THAN 150 mg/dl LOW [id number] TO 199 mg/dl BORDERLINE GNPE475 mg/dl AND GREATER HIGH RISK Performed By: #### 4 1000, 81396, 24709, 16581, 97818, 67226 ####[facility] VLDL CHOL 27 mg/dL Normal 0-40 The [facility] Comment on above: Performed By: #### 4 1000, 42244, 94940, 19593, 47630, 33333 ####[facility] MAGNESIUM BLOODon 08-26-2017 Magnesium mass conc 1.9 mg/dL Normal 1.9-2.7 The [facility] Comment on above: Performed By: #### 4 1000, 59266, 11009, 06340, 91893, 62868 ####[facility] PHOSPHORUS BLOODon 8 Phosphate mass conc 3.4 mg/dL Normal 2.5-5.0 The [facility] Comment on above: Performed By: #### 4 1000, 87029, 26780, 43929, 26372, 37936 ####[facility] TACROLIMUSon 08-26-2017 Tacrolimus mass conc (Bld) 4.3 ng/mL Low 5.0-20.0 The [facility] Comment on above: Result Comment: The [employer] Tacrolimus assay is a delayed one-step immunoassayfor the quantitative determination of tacrolimus in human whole bloodusing the chemiluminescent microparticle immunoassay (CMIA) technologywith flexible assay protocols, referred to as Chemiflex. Performed By: #### 4 1000, 43090, 90141, 14725, 59009, 05507 ####[facility] URIC ACID BLOODon 08-26-2017 Urate mass conc 4.6 mg/dL Normal 2.3-6.6 The [facility] Comment on above: Performed By: #### 4 1000, 81718, 25413, 29425, 39607, 12503 ####[facility] CBC W/DIFFon 07-23-2017 ABS BASOPHILS 0.0 10*3/uL Normal 0.0-0.2 The [facility] Comment on above: Performed By: #### 4 1000, 18746, 79602, 40183, 33787, 97091 ####[facility] ABS IMM GRANS 0.0 10*3/uL Normal 0.0-0.2 The [facility] Comment on above: Performed By: #### 4 1000, 46494, 09206, 49172, 77320, 98635 ####[facility] ABS NEUTROPHILS 4.4 10*3/uL Normal 1.6-7.6 The [facility] Comment on above: Performed By: #### 4 1000, 93456, 48892, 98634, 97962, 33352 ####[facility]3000 [facility].[address] Basophils Auto #/vol (Bld) 0.2 % Normal 0.0-1.0 The [facility] Comment on above: Performed By: #### 4 1000, 87716, 17708, 09130, 80579, 88916 ####[facility] Eosinophils Auto #/vol (Bld) 0.1 10*3/uL Normal 0.0-0.5 The [facility] Comment on above: Performed By: #### 4 1000, 26384, 05439, 54214, 55258, 03157 ####[facility]3000 [facility].[address] Eosinophils/100 WBC Auto (Bld) 2.1 % Normal 0.0-6.0 The [facility] Comment on above: Performed By: #### 4 1000, 58798, 62106, 50628, 16922, 61653 ####[facility] Erythrocyte distribution width Auto Ratio (RBC) 13.7 % Normal 11.5-15.0 The [facility] Comment on above: Performed By: #### 4 1000, 40888, 81624, 35124, 23233, 13736 ####[facility] Hematocrit Auto Volume Fraction (Bld) 44.4 % Normal 36.0-45.0 The [facility] Comment on above: Performed By: #### 4 1000, 18941, 95331, 47550, 36988, 15285 ####[facility]3000 [facility].[address] Hemoglobin mass conc (Bld) 14.7 g/dL Normal 12.0-15.0 The [facility] Comment on above: Performed By: #### 4 1000, 03267, 75591, 77382, 98384, 37771 ####[facility] IMMATURE GRANS 0.5 % Normal 0.0-1.0 The [facility] Comment on above: Performed By: #### 4 1000, 64235, 98423, 10997, 25916, 75038 ####[facility]3000 [facility].[address] Lymphocytes Auto #/vol (Bld) 1.0 10*3/uL Low 1.2-4.0 The [facility] Comment on above: Performed By: #### 4 1000, 04808, 41837, 20039, 61221, 33985 ####[facility]3000 [facility].[address] Lymphocytes/100 WBC Auto (Bld) 15.5 % Low 20.0-45.0 The [facility] Comment on above: Performed By: #### 4 1000, 34088, 50740, 41713, 53128, 05942 ####[facility]3000 [facility].[address] MCH Auto Entitic mass (RBC) 28.9 pg Normal 27.0-33.0 The [facility] Comment on above: Performed By: #### 4 1000, 37316, 93420, 14866, 52638, 09308 ####[facility]3000 [facility].[address] MCHC Auto mass conc (RBC) 33.1 g/dL Normal 32.0-35.0 The [facility] Comment on above: Performed By: #### 4 1000, 22564, 90549, 68509, 27325, 38444 ####[facility]3000 [facility].[address] MCV Auto Entitic volume (RBC) 87.4 fL Normal 82.0-98.0 The [facility] Comment on above: Performed By: #### 4 1000, 74793, 73418, 05208, 23484, 83331 ####[facility] Monocytes Auto #/vol (Bld) 0.8 10*3/uL Normal 0.1-1.0 The [facility] Comment on above: Performed By: #### 4 1000, 86556, 33147, 88079, 99153, 95998 ####[facility] MONOS 12.3 % High 5.0-12.0 The [facility] Comment on above: Performed By: #### 4 1000, 72023, 64292, 31120, 40559, 72084 ####[facility] Neutrophils/100 WBC Auto (Bld) 69.4 % Normal 40.0-72.0 The [facility] Comment on above: Performed By: #### 4 1000, 17201, 59355, 47263, 70937, 89135 ####[facility] Nucleated RBC/100 WBC Ratio (Bld) 0 % Normal 0-0 The [facility] Comment on above: Performed By: #### 4 1000, 42003, 00025, 34502, 63213, 90725 ####[facility]3000 [facility].[address] PLAT CNT 218 10*3/uL Normal 150-400 The [facility] Comment on above: Performed By: #### 4 1000, 11526, 15440, 70521, 39674, 70862 ####[facility]3000 [facility].[address] RBC Auto #/vol (Bld) 5.08 10*6/uL High 3.80-5.00 Th e [facility] Comment on above: Performed By: #### 4 1000, 37994, 65973, 97979, 71461, 14316 ####[facility] WBC Auto #/vol (Bld) 6.3 10*3/uL Normal 4.0-10.6 The [facility] Comment on above: Performed By: #### 4 1000, 98788, 60960, 53370, 01625, 39616 ####[facility] [place] [address], [facility] COMP METABOLIC PANELon 07-23 Albumin mass conc 4.2 g/dL Normal 3.5-5.7 The [facility] Comment on above: Performed By: #### 4 1000, 70519, 78867, 14173, 38895, 16356 ####[facility] [place] [address], [facility] ALKALINE PHOSPH 113 IU/L High 34-104 The [facility] Comment on above: Performed By: #### 4 1000, 69499, 76335, 75333, 49133, 25385 ####[facility] [place] [address], [facility] ALT enzyme act/vol 23 U/L Normal 7-52 The [facility] Comment on above: Performed By: #### 4 1000, 39856, 25279, 95103, 19023, 70395 ####[facility] [place] [address], [facility] AST enzyme act/vol 25 U/L Normal 13-39 The [facility] Comment on above: Performed By: #### 4 1000, 89137, 40901, 16861, 70333, 77250 ####[facility] [place] [address], [facility] Bilirubin mass conc 0.6 mg/dL Normal 0.3-1.0 The [facility] Comment on above: Performed By: #### 4 1000, 29216, 00771, 15872, 40154, 22445 ####[facility] [place] [address], [place] Calcium mass conc 9.6 mg/dL Normal 8.6-10.3 The [facility] Comment on above: Performed By: #### 4 1000, 70189, 51098, 21527, 10872, 45414 ####[facility] [place] [address], [facility] Chloride molar conc 104 mmol/L Normal 98-107 [facility] Comment on above: Performed By: #### 4 1000, 40802, 18043, 80853, 99950, 81936 ####[facility] [place] [address], [place] CO2 molar conc 25 mmol/L Normal 21-31 [facility] Comment on above: Performed By: #### 4 1000, 64295, 40150, 37991, 71610, 09031 ####[facility] [place] [address], [facility] Creatinine mass conc 0.80 mg/dL Normal 0.60-1.20 [facility] Comment on above: Performed By: #### 4 1000, 23144, 10627, 20343, 64974, 52164 ####[facility] [place] [address], [facility] GFR/1.73 sq M predicted among blacks MDRD vol rate/area (S/P/Bld) mL/min/{1.73_m2} Normal >60 The [facility] Comment on above: Performed By: #### 4 1000, 42417, 33938, 50237, 22379, 67928 ####[facility] [place] [address], [place] GFR/1.73 sq M predicted among non-blacks MDRD vol rate/area (S/P/Bld) mL/min/{1.73_m2} Normal >60 The [facility] Comment on above: Performed By: #### 4 1000, 56677, 82667, 11330, 20958, 10015 ####[facility] [place] [address], [facility] Glucose mass conc 91 mg/dL Normal 70-100 The [facility] Comment on above: Performed By: #### 4 1000, 28846, 90034, 44318, 28654, 63926 ####[facility] [place] [address], [facility] Potassium molar conc 4.0 mmol/L Normal 3.5-5.1 The [facility] Comment on above: Performed By: #### 4 1000, 88584, 69291, 49234, 66157, 75130 ####[facility] [place] [address], [facility] Protein mass conc 6.8 g/dL Normal 6.0-8.3 The [facility] Comment on above: Performed By: #### 4 1000, 75218, 86403, 34786, 78500, 78339 ####[facility] [place] [address], [facility] Sodium molar conc 140 mmol/L Normal 136-145 The [facility] Comment on above: Performed By: #### 4 1000, 45494, 68002, 31829, 75224, 63907 ####[facility] [place] [address], [facility] Urea nitrogen mass conc 16 mg/dL Normal 7-25 The [facility] Comment on above: Performed By: #### 4 1000, 20061, 22334, 52078, 72819, 61899 ####[facility] [place] [address], [facility] DIRECT BILIon 07-23-2017 Bilirubin.direct mass conc 0.2 mg/dL Normal 0.0-0.2 The [facility] Comment on above: Performed By: #### 4 1000, 54386, 27704, 80326, 91914, 44137 ####[facility] [place] [address], [facility] EVEROLIMUS [id number] 8 EVEROLIMUS 5.3 ng/mL Normal The [facility] Comment on above: Result Comment: Ther apeutic [...] the transplantcenter.Test developed and characteristics determined by [facility]. See Compliance Statement B: [email or web address] by [employer],[address] [place] [id number] [email or web address], Leonid Antonio MD - Lab. Director LIPID PROFILEon 07-23-2017 Cholesterol in HDL mass conc 45 mg/dL Normal 23-92 The [facility] Comment on above: Result Comment: Slig ht variation in normal range could be due to gender and/or age.HDL CHOLESTEROL REFERENCE RANGE:20 years and older Cardiovascular Risk> or =60 mg/dL Dpmnievrx49 TO 59 mg/dL Low Risk<40 mg/dL High Risk Performed By: #### 4 1000, 19582, 12201, 59558, 42411, 09312 ####[facility] [place] [address], [facility] Cholesterol in LDL mass conc 79 mg/dL Normal 0-130 The [facility] Comment on above: Result Comment: LDL IS A CALCULATIONLDL IS ONLY VALID IF THE TRIG IS LESS THAN 400. Performed By: #### 4 1000, 04322, 90293, 79353, 19279, 88552 ####[facility] [place] [address], [facility] Cholesterol mass conc 141 mg/dL Normal 120-200 The [facility] Comment on above: Result Comment: CHOL ESTEROL REFERENCE RANGE:20 YEARS AND OLDER CARDIOVASCULAR RISKLess than 200 mg/dl Low Uofy318 to 239 mg/dl Borderline Hvsm321 mg/dl and greater High Risk Performed By: #### 4 1000, 10958, 55983, 77480, 49066, 36853 ####[facility] [place] [address], [facility] Cholesterol.total/Cho lesterol in HDL mass ratio 3.1 {ratio} Normal .0-4.5 The [facility] Comment on above: Performed By: #### 4 1000, 48190, 83725, 39713, 53250, 95230 ####[facility] [place] [address], [facility] NON-HDL CHOLESTEROL 96 mg/dL Normal The [facility] Comment on above: Performed By: #### 4 1000, 15878, 26119, 50463, 55958, 40657 ####[facility] [place] [address], [facility] Triglyceride mass conc 83 mg/dL Normal 40-149 The [facility] Comment on above: Result Comment: TRIG LYCERIDE REFERENCE RANGE:20 YEARS AND OLDER CARDIOVASCULAR RISKLESS THAN 150 mg/dl LOW [id number] TO 199 mg/dl BORDERLINE [id number] mg/dl AND GREATER HIGH RISK Performed By: #### 4 1000, 31737, 37884, 76660, 03693, 10073 ####[facility] [place] [address], [place] VLDL CHOL 17 mg/dL Normal 0-40 The [facility] Comment on above: Performed By: #### 4 1000, 76485, 44490, 18376, 11419, 79426 ####[facility] [place] [address], [facility] MAGNESIUM BLOODon 07-23-2017 Magnesium mass conc 2.0 mg/dL Normal 1.9-2.7 The [facility] Comment on above: Performed By: #### 4 1000, 34928, 33320, 93965, 91086, 20234 ####[facility]3000 [facility].[address] PHOSPHORUS BLOODon 8 Phosphate mass conc 4.0 mg/dL Normal 2.5-5.0 The [facility] Comment on above: Performed By: #### 4 1000, 61189, 31025, 48818, 45775, 96719 ####[facility]3000 [facility].[address] TACROLIMUSon 07-23-2017 Tacrolimus mass conc (Bld) 4.6 ng/mL Low 5.0-20.0 The [facility] Comment on above: Result Comment: The [employer] Tacrolimus assay is a delayed one-step immunoassayfor the quantitative determination of tacrolimus in human whole bloodusing the chemiluminescent microparticle immunoassay (CMIA) technologywith flexible assay protocols, referred to as Chemiflex. Performed By: #### 4 1000, 25843, 47235, 66481, 30815, 43503 ####[facility]3000 [facility] [place] [address], [facility] URIC ACID BLOODon 07-23-2017 Urate mass conc 4.7 mg/dL Normal 2.3-6.6 The [facility] Comment on above: Performed By: #### 4 1000, 87004, 40175, 86294, 56924, 51212 ####[facility]3000 [facility].[address] CBC W/DIFFon 06-20-2017 ABS BASOPHILS 0.0 10*3/uL Normal 0.0-0.2 The [facility] Comment on above: Performed By: #### 4 1000, 80618, 96132, 38454, 01774, 46966 ####[facility]3000 [facility].[address] ABS IMM GRANS 0.0 10*3/uL Normal 0.0-0.2 The [facility] Comment on above: Performed By: #### 4 1000, 84394, 39478, 21970, 43783, 33337 ####[facility]3000 [facility].[address] ABS NEUTROPHILS 4.2 10*3/uL Normal 1.6-7.6 The [facility] Comment on above: Performed By: #### 4 1000, 91316, 19169, 79562, 13494, 42549 ####[facility]3000 [facility].[address] Basophils Auto #/vol (Bld) 0.2 % Normal 0.0-1.0 The [facility] Comment on above: Performed By: #### 4 1000, 68139, 79507, 65809, 77804, 00243 ####[facility]3000 [facility].[address] Eosinophils Auto #/vol (Bld) 0.1 10*3/uL Normal 0.0-0.5 The [facility] Comment on above: Performed By: #### 4 1000, 20830, 58594, 29989, 06498, 49409 ####[facility]3000 [facility].[address] Eosinophils/100 WBC Auto (Bld) 1.5 % Normal 0.0-6.0 The [facility] Comment on above: Performed By: #### 4 1000, 48150, 46851, 91437, 73922, 85926 ####[facility]3000 [facility].[address] Erythrocyte distribution width Auto Ratio (RBC) 13.4 % Normal 11.5-15.0 The [facility] Comment on above: Performed By: #### 4 1000, 03683, 81769, 13547, 92541, 33881 ####[facility]3000 [facility] Hematocrit Auto Volume Fraction (Bld) 44.9 % Normal 36.0-45.0 The [facility] Comment on above: Performed By: #### 4 1000, 55765, 33792, 27993, 33341, 62055 ####[facility]3000 [facility] Hemoglobin mass conc (Bld) 14.9 g/dL Normal 12.0-15.0 The [facility] Comment on above: Performed By: #### 4 1000, 51469, 66704, 67021, 83516, 89033 ####[facility]3000 [facility].[address] IMMATURE GRANS 0.2 % Normal 0.0-1.0 The [facility] Comment on above: Performed By: #### 4 1000, 88664, 74719, 90484, 37846, 09213 ####[facility]3000 [facility].[address] Lymphocytes Auto #/vol (Bld) 1.1 10*3/uL Low 1.2-4.0 The [facility] Comment on above: Performed By: #### 4 1000, 48088, 54143, 69551, 13227, 37014 ####[facility]3000 [facility].[address] Lymphocytes/100 WBC Auto (Bld) 17.4 % Low 20.0-45.0 The [facility] Comment on above: Performed By: #### 4 1000, 86082, 32882, 56697, 83189, 31731 ####[facility] MCH Auto Entitic mass (RBC) 29.2 pg Normal 27.0-33.0 The [facility] Comment on above: Performed By: #### 4 1000, 14007, 76170, 00580, 51662, 66629 ####[facility] MCHC Auto mass conc (RBC) 33.2 g/dL Normal 32.0-35.0 The [facility] Comment on above: Performed By: #### 4 1000, 62925, 22120, 71521, 96454, 08396 ####[facility] MCV Auto Entitic volume (RBC) 87.9 fL Normal 82.0-98.0 The [facility] Comment on above: Performed By: #### 4 1000, 06176, 28960, 25726, 71156, 76370 ####[facility] Monocytes Auto #/vol (Bld) 0.7 10*3/uL Normal 0.1-1.0 The [facility] Comment on above: Performed By: #### 4 1000, 44484, 81033, 44608, 46740, 43449 ####[facility] MONOS 11.3 % Normal 5.0-12.0 The [facility] Comment on above: Performed By: #### 4 1000, 12746, 52667, 39550, 30971, 17431 ####[facility] Neutrophils/100 WBC Auto (Bld) 69.4 % Normal 40.0-72.0 The [facility] Comment on above: Performed By: #### 4 1000, 49995, 67154, 03932, 49875, 54937 ####[facility] Nucleated RBC/100 WBC Ratio (Bld) 0 % Normal 0-0 The [facility] Comment on above: Performed By: #### 4 1000, 20593, 45440, 36400, 01273, 91523 ####[facility] PLAT CNT 198 10*3/uL Normal 150-400 The [facility] Comment on above: Performed By: #### 4 1000, 01408, 89366, 43898, 63509, 19471 ####[facility]3000 [facility].[address] RBC Auto #/vol (Bld) 5.11 10*6/uL High 3.80-5.00 Th [facility] Comment on above: Performed By: #### 4 1000, 41844, 63986, 55664, 96564, 49284 ####[facility]3000 [facility] WBC Auto #/vol (Bld) 6.0 10*3/uL Normal 4.0-10.6 [facility] Comment on above: Performed By: #### 4 1000, 34360, 67825, 15870, 51381, 64687 ####[facility]3000 [facility] COMP METABOLIC PANELon 06-20 Albumin mass conc 4.4 g/dL Normal 3.5-5.7 The [facility] Comment on above: Performed By: #### 4 1000, 45204, 92096, 78197, 77303, 69377 ####[facility] ALKALINE PHOSPH 133 IU/L High 34-104 The [facility] Comment on above: Performed By: #### 4 1000, 30191, 47160, 73309, 07665, 05050 ####[facility] [place] [address], [facility] ALT enzyme act/vol 16 U/L Normal 7-52 The [facility] Comment on above: Performed By: #### 4 1000, 63449, 93638, 78175, 27099, 65293 ####[facility] [place] [address], [place] AST enzyme act/vol 21 U/L Normal 13-39 The [facility] Comment on above: Performed By: #### 4 1000, 52882, 89803, 50812, 23830, 14180 ####[facility] [place] [address], [facility] Bilirubin mass conc 0.8 mg/dL Normal 0.3-1.0 The [facility] Comment on above: Performed By: #### 4 1000, 48402, 93672, 80862, 53725, 62243 ####[facility] [place] [address], [facility] Calcium mass conc 10.0 mg/dL Normal 8.6-10.3 The [facility] Comment on above: Performed By: #### 4 1000, 89052, 33213, 40454, 54236, 97123 ####[facility] [place] [address], [place] Chloride molar conc 106 mmol/L Normal 98-107 The [facility] Comment on above: Performed By: #### 4 1000, 87923, 01969, 73279, 23467, 41334 ####[facility] [place] [address], [place] CO2 molar conc 27 mmol/L Normal 21-31 The [facility] Comment on above: Performed By: #### 4 1000, 80136, 27922, 32162, 22626, 01217 ####[facility] [place] [address], [facility] Creatinine mass conc 0.74 mg/dL Normal 0.60-1.20 The [facility] Comment on above: Performed By: #### 4 1000, 94141, 03782, 51277, 85564, 00132 ####[facility] [place] [address], [place] GFR/1.73 sq M predicted among blacks MDRD vol rate/area (S/P/Bld) mL/min/{1.73_m2} Normal >60 The [facility] Comment on above: Performed By: #### 4 1000, 74533, 25800, 64081, 22823, 34521 ####[facility] [place] [address], [facility] GFR/1.73 sq M predicted among non-blacks MDRD vol rate/area (S/P/Bld) mL/min/{1.73_m2} Normal >60 The [facility] Comment on above: Performed By: #### 4 1000, 57071, 46771, 42660, 41492, 55925 ####[facility] [place] [address], [facility] Glucose mass conc 95 mg/dL Normal 70-100 The [facility] Comment on above: Performed By: #### 4 1000, 23501, 08536, 27385, 38483, 58687 ####[facility] [place] [address], [place] Potassium molar conc 3.8 mmol/L Normal 3.5-5.1 The [facility] Comment on above: Performed By: #### 4 1000, 56355, 09159, 59509, 31251, 96238 ####[facility] [place] [address], [place] Protein mass conc 7.3 g/dL Normal 6.0-8.3 The [facility] Comment on above: Performed By: #### 4 1000, 12374, 91108, 50488, 50081, 19623 ####[facility] Sodium molar conc 137 mmol/L Normal 136-145 The [facility] Comment on above: Performed By: #### 4 1000, 13482, 27051, 07852, 90563, 25636 ####[facility] Urea nitrogen mass conc 16 mg/dL Normal 7-25 The [facility] Comment on above: Performed By: #### 4 1000, 11840, 67736, 11574, 45759, 42057 ####[facility] DIRECT BILIon 06-20-2017 Bilirubin.direct mass conc 0.1 mg/dL Normal 0.0-0.2 The [facility] Comment on above: Performed By: #### 4 1000, 80072, 80995, 86647, 08603, 91706 ####[facility] EVEROLIMUS 12228mo 8 EVEROLIMUS 6.7 ng/mL Normal The [facility] Comment on above: Result Comment: Ther apeutic [...] the transplantcenter.Test developed and characteristics determined by [facility]. See Compliance Statement B: [email or web address] by [employer],[address] [place] [address] [email or web address], Leonid Antonio MD - Lab. Director LIPID PROFILEon 06-20-2017 Cholesterol in HDL mass conc 45 mg/dL Normal 23-92 The [facility] Comment on above: Result Comment: Slig ht variation in normal range could be due to gender and/or age.HDL CHOLESTEROL REFERENCE RANGE:20 years and older Cardiovascular Risk> or =60 mg/dL Zzzrjubto37 TO 59 mg/dL Low Risk<40 mg/dL High Risk Performed By: #### 4 1000, 00014, 22475, 22959, 21804, 62639 ####[facility] [place] [address], [facility] Cholesterol in LDL mass conc 58 mg/dL Normal 0-130 The [facility] Comment on above: Result Comment: LDL IS A CALCULATIONLDL IS ONLY VALID IF THE TRIG IS LESS THAN 400. Performed By: #### 4 1000, 54207, 92899, 00383, 80589, 55861 ####[facility] [place] [address], [place] Cholesterol mass conc 126 mg/dL Normal 120-200 The [facility] Comment on above: Result Comment: CHOL ESTEROL REFERENCE RANGE:20 YEARS AND OLDER CARDIOVASCULAR RISKLess than 200 mg/dl Low Brpt941 to 239 mg/dl Borderline Wsef371 mg/dl and greater High Risk Performed By: #### 4 1000, 47059, 80058, 88794, 79245, 45549 ####[facility] [place] [address], [place] Cholesterol.total/Cho lesterol in HDL mass ratio 2.8 {ratio} Normal .0-4.5 The [facility] Comment on above: Performed By: #### 4 1000, 68212, 39650, 15878, 46642, 96076 ####[facility] NON-HDL CHOLESTEROL 81 mg/dL Normal The [facility] Comment on above: Performed By: #### 4 1000, 51059, 85449, 47030, 51233, 31647 ####[facility] Triglyceride mass conc 113 mg/dL Normal 40-149 The [facility] Comment on above: Result Comment: TRIG LYCERIDE REFERENCE RANGE:20 YEARS AND OLDER CARDIOVASCULAR RISKLESS THAN 150 mg/dl LOW [id number] TO 199 mg/dl BORDERLINE FPCT889 mg/dl AND GREATER HIGH RISK Performed By: #### 4 1000, 90122, 19201, 05097, 78963, 41307 ####[facility] VLDL CHOL 23 mg/dL Normal 0-40 The [facility] Comment on above: Performed By: #### 4 1000, 69469, 61954, 41514, 16579, 21266 ####[facility] MAGNESIUM BLOODon 06-20-2017 Magnesium mass conc 1.9 mg/dL Normal 1.9-2.7 The [facility] Comment on above: Performed By: #### 4 1000, 80361, 20719, 17953, 61353, 16955 ####[facility] [place] [address], [facility] PHOSPHORUS BLOODon 8 Phosphate mass conc 3.1 mg/dL Normal 2.5-5.0 The [facility] Comment on above: Performed By: #### 4 1000, 78495, 90884, 15817, 90191, 57905 ####[facility]3000 [facility].[address] TACROLIMUSon 06-20-2017 Tacrolimus mass conc (Bld) 4.2 ng/mL Low 5.0-20.0 The [facility] Comment on above: Result Comment: The [employer]UDIT[employer] Tacrolimus assay is a delayed one-step immunoassayfor the quantitative determination of tacrolimus in human whole bloodusing the chemiluminescent microparticle immunoassay (CMIA) technologywith flexible assay protocols, referred to as Chemiflex. Performed By: #### 4 1000, 23945, 86095, 17123, 58060, 57559 ####[facility] URIC ACID BLOODon 06-20-2017 Urate mass conc 4.3 mg/dL Normal 2.3-6.6 The [facility] Comment on above: Performed By: #### 4 1000, 63630, 46305, 09409, 65992, 58678 ####[facility] BK VIRUS QUANTITATION PCR BL OODon 05-27-2017 BKV QUANT PCR Not detected Normal The [facility] Comment on above: Result Comment: Meth od: BK virus was measured by quantitative polymerase chain reactionusing a TaqMan probe targeting the polyomavirus BK [employer] STOCK ASSOCIATE-1 gene.The lower limit of quantitation of the assay is 500 copies of BK genomeper milliliter of plasma or urine, and any detectable BK DNA below thatlevel is reported as: Detected, <500 copies/ml. Serial BK virusmeasurement can be used to monitor disease activity. (Reference:Kelsie vaughanl. J CLIN MICRO 2004; 42:8896-4530).This test was developed and its performance characteristics determinedby the [facility] Molecular Diagnostics Laboratory. It has not been approvedby the US Food and Drug Administration. However, such approval is notrequired for clinical implementation, and test results have been shownto be clinically useful. This laboratory is CAP accredited and CLIAcertified to perform high complexity testing. Performed By: #### 4 1000, 97963, 69751, 57798, 84122, 33339 ####[facility]3000 [facility].[address] LOG 10 COPIES Not detected Normal The [facility] Comment on above: Performed By: #### 4 1000, 37905, 27229, 79530, 65665, 05430 ####[facility]3000 [facility].[address] CBC W/DIFFon 05-27-2017 ABS BASOPHILS 0.0 10*3/uL Normal 0.0-0.2 The [facility] Comment on above: Performed By: #### 4 1000, 79542, 90748, 00668, 26359, 17087 ####[facility]3000 [facility].[address] ABS IMM GRANS 0.0 10*3/uL Normal 0.0-0.2 The [facility] Comment on above: Performed By: #### 4 1000, 07503, 84945, 80094, 34790, 40489 ####[facility]3000 [facility].[address] ABS NEUTROPHILS 4.8 10*3/uL Normal 1.6-7.6 The [facility] Comment on above: Performed By: #### 4 1000, 40958, 30415, 07689, 61531, 51779 ####[facility]3000 [facility].[address] Basophils Auto #/vol (Bld) 0.0 % Normal 0.0-1.0 The [facility] Comment on above: Performed By: #### 4 1000, 18448, 72571, 92474, 81371, 79669 ####[facility]3000 [facility].[address] Eosinophils Auto #/vol (Bld) 0.1 10*3/uL Normal 0.0-0.5 The [facility] Comment on above: Performed By: #### 4 1000, 69361, 04196, 31512, 02850, 32148 ####[facility]3000 [facility].[address] Eosinophils/100 WBC Auto (Bld) 1.1 % Normal 0.0-6.0 The [facility] Comment on above: Performed By: #### 4 1000, 43124, 09703, 63777, 70997, 93609 ####[facility]3000 [facility].[address] Erythrocyte distribution width Auto Ratio (RBC) 13.5 % Normal 11.5-15.0 The [facility] Comment on above: Performed By: #### 4 1000, 44321, 32727, 33023, 00591, 92788 ####[facility]3000 [facility].[address] Hematocrit Auto Volume Fraction (Bld) 46.1 % High 36.0-45.0 The [facility] Comment on above: Performed By: #### 4 1000, 63236, 41806, 99822, 11627, 34767 ####[facility]3000 [facility].[address] Hemoglobin mass conc (Bld) 15.0 g/dL Normal 12.0-15.0 The [facility] Comment on above: Performed By: #### 4 1000, 49558, 78616, 31422, 98898, 27831 ####[facility]3000 [facility].[address] IMMATURE GRANS 0.3 % Normal 0.0-1.0 The [facility] Comment on above: Performed By: #### 4 1000, 78969, 94814, 98819, 50848, 64935 ####[facility]3000 [facility].[address] Lymphocytes Auto #/vol (Bld) 1.0 10*3/uL Low 1.2-4.0 The [facility] Comment on above: Performed By: #### 4 1000, 49841, 08757, 56912, 55292, 83565 ####[facility] Lymphocytes/100 WBC Auto (Bld) 15.7 % Low 20.0-45.0 The [facility] Comment on above: Performed By: #### 4 1000, 77891, 91790, 91366, 32849, 80472 ####[facility] MCH Auto Entitic mass (RBC) 28.8 pg Normal 27.0-33.0 The [facility] Comment on above: Performed By: #### 4 1000, 64410, 81453, 51133, 70695, 22868 ####[facility] MCHC Auto mass conc (RBC) 32.5 g/dL Normal 32.0-35.0 The [facility] Comment on above: Performed By: #### 4 1000, 88385, 48680, 12608, 89410, 67225 ####[facility] MCV Auto Entitic volume (RBC) 88.7 fL Normal 82.0-98.0 The [facility] Comment on above: Performed By: #### 4 1000, 82368, 97518, 52998, 70707, 62103 ####[facility] Monocytes Auto #/vol (Bld) 0.8 10*3/uL Normal 0.1-1.0 The [facility] Comment on above: Performed By: #### 4 1000, 98325, 26492, 92636, 44510, 05046 ####[facility] MONOS 11.4 % Normal 5.0-12.0 The [facility] Comment on above: Performed By: #### 4 1000, 39240, 23065, 49217, 63782, 90842 ####[facility] [place] [address], [facility] Neutrophils/100 WBC Auto (Bld) 71.5 % Normal 40.0-72.0 The [facility] Comment on above: Performed By: #### 4 1000, 05177, 80747, 73512, 18415, 47119 ####[facility] Nucleated RBC/100 WBC Ratio (Bld) 0 % Normal 0-0 The [facility] Comment on above: Performed By: #### 4 1000, 87588, 35728, 16671, 90410, 80459 ####[facility] [place] [address], [facility] PLAT CNT 199 10*3/uL Normal 150-400 The [facility] Comment on above: Performed By: #### 4 1000, 93647, 00680, 41396, 32621, 15575 ####[facility] [place] [address], [facility] RBC Auto #/vol (Bld) 5.20 10*6/uL High 3.80-5.00 Th e [facility] Comment on above: Performed By: #### 4 1000, 22582, 11019, 84165, 08324, 10016 ####[facility] [place] [address], [facility] WBC Auto #/vol (Bld) 6.6 10*3/uL Normal 4.0-10.6 [facility] Comment on above: Performed By: #### 4 1000, 68418, 79484, 34774, 24520, 31985 ####[facility] COMP METABOLIC PANELon 05-27 Albumin mass conc 4.6 g/dL Normal 3.5-5.7 The [facility] Comment on above: Performed By: #### 4 1000, 16211, 15812, 42528, 46386, 09762 ####[facility] [place] [address], [facility] ALKALINE PHOSPH 105 IU/L High 34-104 [facility] Comment on above: Performed By: #### 4 1000, 36442, 68809, 21998, 47159, 62876 ####[facility] [place] [address], [facility] ALT enzyme act/vol 20 U/L Normal 7-52 The [facility] Comment on above: Performed By: #### 4 1000, 49641, 53671, 03243, 82313, 60905 ####[facility] [place] [address], [facility] AST enzyme act/vol 23 U/L Normal 13-39 The [facility] Comment on above: Performed By: #### 4 1000, 59050, 06213, 38892, 42220, 81397 ####[facility] [place] [address], [facility] Bilirubin mass conc 0.6 mg/dL Normal 0.3-1.0 The [facility] Comment on above: Performed By: #### 4 1000, 04403, 01297, 85769, 58926, 31219 ####[facility] [place] [address], [facility] Calcium mass conc 9.8 mg/dL Normal 8.6-10.3 The [facility] Comment on above: Performed By: #### 4 1000, 17441, 98237, 26167, 08181, 50094 ####[facility] [place] [address], [facility] Chloride molar conc 106 mmol/L Normal 98-107 [facility] Comment on above: Performed By: #### 4 1000, 07053, 64609, 84117, 37307, 53381 ####[facility] [place] [address], [facility] CO2 molar conc 30 mmol/L Normal 21-31 The [facility] Comment on above: Performed By: #### 4 1000, 27316, 82621, 90772, 09239, 78007 ####[facility] [place] [address], [facility] Creatinine mass conc 0.80 mg/dL Normal 0.60-1.20 [facility] Comment on above: Performed By: #### 4 1000, 94963, 85042, 50585, 83665, 68932 ####[facility] [place] [address], [facility] GFR/1.73 sq M predicted among blacks MDRD vol rate/area (S/P/Bld) mL/min/{1.73_m2} Normal >60 The [facility] Comment on above: Performed By: #### 4 1000, 39698, 99263, 19682, 04145, 96256 ####[facility] [place] [address], [facility] GFR/1.73 sq M predicted among non-blacks MDRD vol rate/area (S/P/Bld) mL/min/{1.73_m2} Normal >60 The [facility] Comment on above: Performed By: #### 4 1000, 46448, 66262, 93446, 79290, 05548 ####[facility] [place] [address], [place] Glucose mass conc 90 mg/dL Normal 70-100 [facility] Comment on above: Performed By: #### 4 1000, 20987, 96205, 41588, 66434, 78528 ####[facility] [place] [address], [facility] Potassium molar conc 4.0 mmol/L Normal 3.5-5.1 The [facility] Comment on above: Performed By: #### 4 1000, 06019, 66253, 87920, 57800, 26346 ####[facility] Protein mass conc 6.8 g/dL Normal 6.0-8.3 The [facility] Comment on above: Performed By: #### 4 1000, 55282, 04660, 79760, 06682, 21047 ####[facility] Sodium molar conc 138 mmol/L Normal 136-145 The [facility] Comment on above: Performed By: #### 4 1000, 48800, 61766, 75105, 04443, 02513 ####[facility] Urea nitrogen mass conc 14 mg/dL Normal 7-25 The [facility] Comment on above: Performed By: #### 4 1000, 77957, 87197, 80276, 04028, 31351 ####[facility] DIRECT BILIon 05-27-2017 Bilirubin.direct mass conc 0.1 mg/dL Normal 0.0-0.2 The [facility] Comment on above: Performed By: #### 4 1000, 66040, 74802, 88023, 09562, 80887 ####[facility] EVEROLIMUS [id number] 8 EVEROLIMUS 5.6 ng/mL Normal The [facility] Comment on above: Result Comment: Ther apeutic [...] the transplantcenter.Test developed and characteristics determined by [employer]. See Compliance Statement B: [email or web address] by [employer],[address] [place] [id number] [email or web address], Leonid Antonio MD - Lab. Director HEMOGLOBIN A1Con 05-27-2017 Glucose mass conc 108 mg/dL Normal 70-126 [facility] Comment on above: Performed By: #### 4 1000, 28130, 58245, 87368, 97629, 53737 ####[facility] [facility] [place] [address], [facility] Hemoglobin A1c/Hemoglobin.total mass fraction (Bld) 5.4 % Normal 4.0-6.0 The [facility] Comment on above: Performed By: #### 4 1000, 29818, 90578, 05277, 92629, 29778 ####[facility] [facility] [place] [address], [facility] LIPID PROFILEon 05-27-2017 Cholesterol in HDL mass conc 39 mg/dL Normal 23-92 The [facility] Comment on above: Result Comment: Slig ht variation in normal range could be due to gender and/or age.HDL CHOLESTEROL REFERENCE RANGE:20 years and older Cardiovascular Risk> or =60 mg/dL [id number] TO 59 mg/dL Low Risk<40 mg/dL High Risk Performed By: #### 4 1000, 20207, 69582, 51169, 65331, 05350 ####[facility] [facility] [place] [address], [facility] Cholesterol in LDL mass conc 52 mg/dL Normal 0-130 The [facility] Comment on above: Result Comment: LDL IS A CALCULATIONLDL IS ONLY VALID IF THE TRIG IS LESS THAN 400. Performed By: #### 4 1000, 40500, 80029, 22185, 82730, 97821 ####[facility] [facility] [place] [address], [facility] Cholesterol mass conc 117 mg/dL Low 120-200 The [facility] Comment on above: Result Comment: CHOL ESTEROL REFERENCE RANGE:20 YEARS AND OLDER CARDIOVASCULAR RISKLess than 200 mg/dl Low Jivw857 to 239 mg/dl Borderline Gupc764 mg/dl and greater High Risk Performed By: #### 4 1000, 17186, 75060, 88858, 91667, 71580 ####[facility] [place] [address], [facility] Cholesterol.total/Cho lesterol in HDL mass ratio 3.0 {ratio} Normal .0-4.5 The [facility] Comment on above: Performed By: #### 4 1000, 57097, 92650, 71129, 49751, 34005 ####[facility] [place] [address], [facility] NON-HDL CHOLESTEROL 78 mg/dL Normal The [facility] Comment on above: Performed By: #### 4 1000, 23120, 76233, 96935, 47746, 55492 ####[facility] [facility] [place] [address], [place] Triglyceride mass conc 131 mg/dL Normal 40-149 The [facility] Comment on above: Result Comment: TRIG LYCERIDE REFERENCE RANGE:20 YEARS AND OLDER CARDIOVASCULAR RISKLESS THAN 150 mg/dl LOW APRU504 TO 199 mg/dl BORDERLINE [id number] mg/dl AND GREATER HIGH RISK Performed By: #### 4 1000, 41626, 05532, 34697, 96715, 88613 ####[facility] VLDL CHOL 26 mg/dL Normal 0-40 The [facility] Comment on above: Performed By: #### 4 1000, 88682, 60845, 45801, 80921, 97992 ####[facility] MAGNESIUM BLOODon 05-27-2017 Magnesium mass conc 2.1 mg/dL Normal 1.9-2.7 The [facility] Comment on above: Performed By: #### 4 1000, 29899, 85230, 91403, 62517, 97865 ####[facility] PHOSPHORUS BLOODon 8 Phosphate mass conc 3.5 mg/dL Normal 2.5-5.0 The [facility] Comment on above: Performed By: #### 4 1000, 98284, 08279, 13595, 93451, 27075 ####[facility] TACROLIMUSon 05-27-2017 Tacrolimus mass conc (Bld) 4.4 ng/mL Low 5.0-20.0 The [facility] Comment on above: Result Comment: The [employer] TECH[employer]UDITOR Tacrolimus assay is a delayed one-step immunoassayfor the quantitative determination of tacrolimus in human whole bloodusing the chemiluminescent microparticle immunoassay (CMIA) technologywith flexible assay protocols, referred to as Chemiflex. Performed By: #### 4 1000, 39384, 73767, 21434, 70018, 55280 ####[facility] URIC ACID BLOODon 05-27-2017 Urate mass conc 4.6 mg/dL Normal 2.3-6.6 The [facility] Comment on above: Performed By: #### 4 1000, 29610, 32048, 94896, 96118, 05043 ####[facility]3000 [facility].[address] CBC W/DIFFon 04-29-2017 ABS BASOPHILS 0.0 10*3/uL Normal 0.0-0.2 The [facility] Comment on above: Performed By: #### 4 1000, 69335, 65775, 40293, 12642, 46162 ####[facility]3000 [facility].[address] ABS IMM GRANS 0.0 10*3/uL Normal 0.0-0.2 The [facility] Comment on above: Performed By: #### 4 1000, 06362, 78473, 24545, 33540, 16463 ####[facility] ABS NEUTROPHILS 4.6 10*3/uL Normal 1.6-7.6 The [facility] Comment on above: Performed By: #### 4 1000, 01503, 94041, 80994, 08132, 33235 ####[facility]3000 [facility].[address] Basophils Auto #/vol (Bld) 0.3 % Normal 0.0-1.0 The [facility] Comment on above: Performed By: #### 4 1000, 83340, 87697, 06945, 46158, 79054 ####[facility]3000 [facility].[address] Eosinophils Auto #/vol (Bld) 0.1 10*3/uL Normal 0.0-0.5 The [facility] Comment on above: Performed By: #### 4 1000, 48786, 54005, 98929, 68785, 33783 ####[facility]3000 [facility].[address] Eosinophils/100 WBC Auto (Bld) 1.7 % Normal 0.0-6.0 The [facility] Comment on above: Performed By: #### 4 1000, 66482, 41774, 27756, 07796, 54828 ####[facility]3000 [facility].[address] Erythrocyte distribution width Auto Ratio (RBC) 13.7 % Normal 11.5-15.0 The [facility] Comment on above: Performed By: #### 4 1000, 70764, 36099, 75555, 69879, 80345 ####[facility]3000 [facility].[address] Hematocrit Auto Volume Fraction (Bld) 45.0 % Normal 36.0-45.0 The [facility] Comment on above: Performed By: #### 4 1000, 99278, 45125, 24384, 52246, 84588 ####[facility]3000 [facility].[address] Hemoglobin mass conc (Bld) 14.9 g/dL Normal 12.0-15.0 The [facility] Comment on above: Performed By: #### 4 1000, 29928, 45985, 53308, 31096, 03354 ####[facility]3000 [facility].[address] IMMATURE GRANS 0.3 % Normal 0.0-1.0 The [facility] Comment on above: Performed By: #### 4 1000, 52485, 93320, 05950, 24509, 62277 ####[facility]3000 [facility].[address] Lymphocytes Auto #/vol (Bld) 0.9 10*3/uL Low 1.2-4.0 The [facility] Comment on above: Performed By: #### 4 1000, 01588, 53979, 10517, 54194, 44080 ####[facility]3000 [facility].[address] Lymphocytes/100 WBC Auto (Bld) 14.2 % Low 20.0-45.0 The [facility] Comment on above: Performed By: #### 4 1000, 36299, 02269, 82477, 13476, 11246 ####[facility] MCH Auto Entitic mass (RBC) 29.4 pg Normal 27.0-33.0 The [facility] Comment on above: Performed By: #### 4 1000, 54275, 77745, 48749, 53019, 65613 ####[facility]3000 [facility].[address] MCHC Auto mass conc (RBC) 33.1 g/dL Normal 32.0-35.0 The [facility] Comment on above: Performed By: #### 4 1000, 49049, 62489, 63497, 15055, 21027 ####[facility]3000 [facility].[address] MCV Auto Entitic volume (RBC) 88.8 fL Normal 82.0-98.0 The [facility] Comment on above: Performed By: #### 4 1000, 89649, 25090, 61855, 24653, 88545 ####[facility]3000 [facility].[address] Monocytes Auto #/vol (Bld) 0.8 10*3/uL Normal 0.1-1.0 The [facility] Comment on above: Performed By: #### 4 1000, 88029, 50470, 98821, 06106, 76499 ####[facility] MONOS 12.2 % High 5.0-12.0 The [facility] Comment on above: Performed By: #### 4 1000, 03259, 52382, 02122, 60916, 33763 ####[facility] Neutrophils/100 WBC Auto (Bld) 71.3 % Normal 40.0-72.0 The [facility] Comment on above: Performed By: #### 4 1000, 60590, 12452, 90947, 40045, 75328 ####[facility] Nucleated RBC/100 WBC Ratio (Bld) 0 % Normal 0-0 The [facility] Comment on above: Performed By: #### 4 1000, 75364, 55038, 95282, 32893, 49729 ####[facility] PLAT CNT 215 10*3/uL Normal 150-400 The [facility] Comment on above: Performed By: #### 4 1000, 26166, 41592, 75026, 71384, 82385 ####[facility] RBC Auto #/vol (Bld) 5.07 10*6/uL High 3.80-5.00 Th e [facility] Comment on above: Performed By: #### 4 1000, 71752, 79950, 64350, 38563, 72820 ####[facility] WBC Auto #/vol (Bld) 6.5 10*3/uL Normal 4.0-10.6 The [facility] Comment on above: Performed By: #### 4 1000, 08084, 83939, 20869, 17298, 71307 ####[facility] COMP METABOLIC PANELon 04-29 Albumin mass conc 4.4 g/dL Normal 3.5-5.7 The [facility] Comment on above: Performed By: #### 4 1000, 69552, 42432, 42367, 02105, 28863 ####[facility] [place] [address], [facility] ALKALINE PHOSPH 114 IU/L High 34-104 The [facility] Comment on above: Performed By: #### 4 1000, 28297, 08272, 34043, 12686, 48843 ####[facility] [place] [address], [facility] ALT enzyme act/vol 15 U/L Normal 7-52 The [facility] Comment on above: Performed By: #### 4 1000, 48519, 08913, 81616, 26985, 27766 ####[facility] [place] [address], [facility] AST enzyme act/vol 19 U/L Normal 13-39 The [facility] Comment on above: Performed By: #### 4 1000, 05319, 43765, 57347, 64071, 78284 ####[facility] [place] [address], [facility] Bilirubin mass conc 0.7 mg/dL Normal 0.3-1.0 The [facility] Comment on above: Performed By: #### 4 1000, 15993, 36097, 53077, 14350, 40884 ####[facility] [place] [address], [place] Calcium mass conc 9.6 mg/dL Normal 8.6-10.3 The [facility] Comment on above: Performed By: #### 4 1000, 38219, 78777, 92882, 54728, 56244 ####[facility] [place] [address], [place] Chloride molar conc 103 mmol/L Normal 98-107 [facility] Comment on above: Performed By: #### 4 1000, 39709, 39750, 95934, 71854, 93616 ####[facility] [place] [address], [facility] CO2 molar conc 29 mmol/L Normal 21-31 The [facility] Comment on above: Performed By: #### 4 1000, 77007, 17005, 00652, 30604, 30474 ####[facility] [place] [address], [facility] Creatinine mass conc 0.79 mg/dL Normal 0.60-1.20 [facility] Comment on above: Performed By: #### 4 1000, 30256, 37204, 07097, 91833, 99909 ####[facility] [place] [address], [facility] GFR/1.73 sq M predicted among blacks MDRD vol rate/area (S/P/Bld) mL/min/{1.73_m2} Normal >60 The [facility] Comment on above: Performed By: #### 4 1000, 13125, 69190, 69070, 54786, 01748 ####[facility] [place] [address], [facility] GFR/1.73 sq M predicted among non-blacks MDRD vol rate/area (S/P/Bld) mL/min/{1.73_m2} Normal >60 The [facility] Comment on above: Performed By: #### 4 1000, 20058, 06197, 14262, 35587, 29961 ####[facility] [place] [address], [facility] Glucose mass conc 90 mg/dL Normal 70-100 [facility] Comment on above: Performed By: #### 4 1000, 97228, 94304, 71140, 00870, 48201 ####[facility] [place] [address], [facility] Potassium molar conc 3.8 mmol/L Normal 3.5-5.1 The [facility] Comment on above: Performed By: #### 4 1000, 57928, 75631, 06400, 54452, 80659 ####[facility] [place] [address], [facility] Protein mass conc 7.2 g/dL Normal 6.0-8.3 The [facility] Comment on above: Performed By: #### 4 1000, 65244, 61974, 32026, 50089, 08002 ####[facility] [place] [address], [facility] Sodium molar conc 140 mmol/L Normal 136-145 The [facility] Comment on above: Performed By: #### 4 1000, 64731, 60484, 54503, 53778, 43803 ####[facility] [place] [address], [facility] Urea nitrogen mass conc 15 mg/dL Normal 7-25 The [facility] Comment on above: Performed By: #### 4 1000, 60273, 77920, 66312, 75019, 16455 ####[facility] [place] [address], [facility] DIRECT BILIon 04-29-2017 Bilirubin.direct mass conc 0.1 mg/dL Normal 0.0-0.2 The [facility] Comment on above: Order Comment: Liver Battery conflicts with Comprehensive Metabolic Panel. Liver Battery canceled and Direct Bilirubin added. Performed By: #### 4 1000, 13223, 60773, 97023, 21792, 99460 ####[facility] [place] [address], [facility] EVEROLIMUS [id number] 8 EVEROLIMUS 5.4 ng/mL Normal The [facility] Comment on above: Result Comment: Ther apeutic [...] the transplantcenter.Test developed and characteristics determined by [employer]. See Compliance Statement B: [email or web address] by [employer],[address] [place] [address] [id number] [email or web address], Leonid Antonio MD - Lab. Director LIPID PROFILEon 04-29-2017 Cholesterol in HDL mass conc 49 mg/dL Normal 23-92 [facility] Comment on above: Result Comment: Slig ht variation in normal range could be due to gender and/or age.HDL CHOLESTEROL REFERENCE RANGE:20 years and older Cardiovascular Risk> or =60 mg/dL [id number] TO 59 mg/dL Low Risk<40 mg/dL High Risk Performed By: #### 4 1000, 11323, 80230, 94370, 88350, 51968 ####[facility] Cholesterol in LDL mass conc 52 mg/dL Normal 0-130 The [facility] Comment on above: Result Comment: LDL IS A CALCULATIONLDL IS ONLY VALID IF THE TRIG IS LESS THAN 400. Performed By: #### 4 1000, 15687, 01273, 43041, 74268, 19639 ####[facility] [place] [address], [facility] Cholesterol mass conc 122 mg/dL Normal 120-200 The [facility] Comment on above: Result Comment: CHOL ESTEROL REFERENCE RANGE:20 YEARS AND OLDER CARDIOVASCULAR RISKLess than 200 mg/dl Low Yeqx003 to 239 mg/dl Borderline Dyar679 mg/dl and greater High Risk Performed By: #### 4 1000, 22646, 90400, 20139, 23834, 07214 ####[facility] [place] [address], [facility] Cholesterol.total/Cho lesterol in HDL mass ratio 2.5 {ratio} Normal .0-4.5 [facility] Comment on above: Performed By: #### 4 1000, 97911, 36941, 41067, 10142, 42935 ####[facility] NON-HDL CHOLESTEROL 73 mg/dL Normal [facility] Comment on above: Performed By: #### 4 1000, 77911, 45121, 44545, 18440, 68753 ####[facility] [facility] Triglyceride mass conc 106 mg/dL Normal 40-149 The [facility] Comment on above: Result Comment: TRIG LYCERIDE REFERENCE RANGE:20 YEARS AND OLDER CARDIOVASCULAR RISKLESS THAN 150 mg/dl LOW CIQT139 TO 199 mg/dl BORDERLINE [id number] mg/dl AND GREATER HIGH RISK Performed By: #### 4 1000, 95607, 13460, 20744, 44242, 58508 ####[facility] [place] [address], [facility] VLDL CHOL 21 mg/dL Normal 0-40 The [facility] Comment on above: Performed By: #### 4 1000, 49198, 18375, 98284, 52278, 92486 ####[facility] [place] [address], [facility] MAGNESIUM BLOODon 04-29-2017 Magnesium mass conc 2.1 mg/dL Normal 1.9-2.7 The [facility] Comment on above: Performed By: #### 4 1000, 35549, 75957, 55699, 21279, 80392 ####[facility]3000 [facility].[address] PHOSPHORUS BLOODon 8 Phosphate mass conc 3.3 mg/dL Normal 2.5-5.0 The [facility] Comment on above: Performed By: #### 4 1000, 59202, 24541, 83394, 85985, 12682 ####[facility]3000 [facility].[address] TACROLIMUSon 04-29-2017 Tacrolimus mass conc (Bld) 4.6 ng/mL Low 5.0-20.0 The [facility] Comment on above: Result Comment: The [employer] TECH[employer]Y AUDITOR Tacrolimus assay is a delayed one-step immunoassayfor the quantitative determination of tacrolimus in human whole bloodusing the chemiluminescent microparticle immunoassay (CMIA) technologywith flexible assay protocols, referred to as Chemiflex. Performed By: #### 4 1000, 59130, 96837, 55275, 67831, 70148 ####[place] [address] [facility].[address] URIC ACID BLOODon 04-29-2017 Urate mass conc 4.6 mg/dL Normal 2.3-6.6 The [facility] Comment on above: Performed By: #### 4 1000, 76928, 82849, 53389, 85039, 35121 ####[facility] [facility] [address], [facility] CBC W/DIFFon 03-27-2017 Basophils Auto #/vol (Bld) 0.2 % Normal 0.0-2.0 The [facility] Comment on above: Performed By: #### 4 1000, 17505, 86097, 77999, 38535, 46228 ####[facility] Eosinophils/100 WBC Auto (Bld) 1.8 % Normal 0.0-5.0 The [facility] Comment on above: Performed By: #### 4 1000, 53270, 05022, 92989, 45709, 32429 ####[facility] Erythrocyte distribution width Auto Ratio (RBC) 13.6 % Normal 11.5-16.9 The [facility] Comment on above: Performed By: #### 4 1000, 60664, 67038, 96069, 94483, 49911 ####[facility] Hematocrit Auto Volume Fraction (Bld) 47.6 % Normal 36.0-48.0 The [facility] Comment on above: Performed By: #### 4 1000, 93055, 92037, 03923, 12560, 92745 ####[facility] Hemoglobin mass conc (Bld) 15.8 g/dL High 12.0-15.0 The [facility] Comment on above: Performed By: #### 4 1000, 43996, 18567, 98989, 27941, 00947 ####[facility] Lymphocytes/100 WBC Auto (Bld) 14.5 % Low 20.0-40.0 The [facility] Comment on above: Performed By: #### 4 1000, 70224, 30779, 97247, 44273, 44262 ####[facility] [place] [address], [facility] MCH Auto Entitic mass (RBC) 29.0 pg Normal 24.0-32.0 The [facility] Comment on above: Performed By: #### 4 1000, 87733, 39128, 33957, 42873, 16671 ####[facility] MCHC Auto mass conc (RBC) 33.3 g/dL Normal 32.0-36.0 The [facility] Comment on above: Performed By: #### 4 1000, 91919, 78488, 39183, 34997, 03179 ####[facility] MCV Auto Entitic volume (RBC) 87.4 fL Normal 80.0-100.0 The [facility] Comment on above: Performed By: #### 4 1000, 34391, 05733, 09724, 55306, 07936 ####[facility] METHOD Normal RBC Morphology Normal The [facility] Comment on above: Performed By: #### 4 1000, 67332, 53108, 60807, 28088, 54959 ####[facility] MONOS 9.6 % High 2-8 [facility] Comment on above: Performed By: #### 4 1000, 55945, 59062, 59386, 08881, 04870 ####[facility] Neutrophils/100 WBC Auto (Bld) 73.9 % High 50-70 The [facility] Comment on above: Performed By: #### 4 1000, 01824, 46380, 52613, 87289, 89408 ####[facility] PLAT CNT 228 Thou/mm3 Normal 100-400 The [facility] Comment on above: Performed By: #### 4 1000, 44586, 45128, 30500, 95217, 47438 ####[facility] RBC Auto #/vol (Bld) 5.45 mill/mm3 Normal 3.50-5.50 T he [facility] Comment on above: Performed By: #### 4 1000, 42499, 26254, 91483, 97843, 28799 ####[facility] [place] [address], [facility] WBC Auto #/vol (Bld) 6.5 Thou/mm3 Normal 4.0-10.0 Th e [facility] Comment on above: Performed By: #### 4 1000, 85865, 22061, 08395, 55787, 14779 ####[facility] COMP METABOLIC PANELon 03-27 Albumin mass conc 4.7 g/dL Normal 3.5-5.7 The [facility] Comment on above: Performed By: #### 4 1000, 14099, 62655, 77410, 73929, 75409 ####[facility] ALKALINE PHOSPH 99 IU/L Normal 34-104 The [facility] Comment on above: Performed By: #### 4 1000, 80743, 20940, 26767, 61258, 27111 ####[facility] ALT enzyme act/vol 19 U/L Normal 7-52 The [facility] Comment on above: Performed By: #### 4 1000, 64559, 26146, 11805, 85220, 50665 ####[facility] [place] [address], [facility] AST enzyme act/vol 21 U/L Normal 13-39 The [facility] Comment on above: Performed By: #### 4 1000, 33060, 41786, 03748, 14262, 33875 ####[facility] [place] [address], [facility] Bilirubin mass conc 0.6 mg/dL Normal 0.3-1.0 The [facility] Comment on above: Performed By: #### 4 1000, 60461, 16350, 24233, 35131, 75093 ####[facility] [place] [address], [facility] Calcium mass conc 10.2 mg/dL Normal 8.6-10.3 [facility] Comment on above: Performed By: #### 4 1000, 96092, 90766, 00825, 15084, 86816 ####[facility] [place] [address], [facility] Chloride molar conc 104 mmol/L Normal 98-107 The [facility] Comment on above: Performed By: #### 4 1000, 48934, 20452, 99918, 65682, 28183 ####[facility] [place] [address], [facility] CO2 molar conc 28 mmol/L Normal 21-31 The [facility] Comment on above: Performed By: #### 4 1000, 96598, 46511, 35050, 85959, 08825 ####[facility] [place] [address], [facility] Creatinine mass conc 0.78 mg/dL Normal 0.60-1.20 The [facility] Comment on above: Performed By: #### 4 1000, 56933, 63379, 33225, 53857, 63099 ####[facility] [place] [address], [facility] GFR/1.73 sq M predicted among blacks MDRD vol rate/area (S/P/Bld) mL/min/{1.73_m2} Normal >60 The [facility] Comment on above: Performed By: #### 4 1000, 99675, 34448, 49642, 70299, 70659 ####[facility] [place] [address], [facility] GFR/1.73 sq M predicted among non-blacks MDRD vol rate/area (S/P/Bld) mL/min/{1.73_m2} Normal >60 The [facility] Comment on above: Performed By: #### 4 1000, 19454, 65560, 87619, 21173, 35513 ####[facility] [place] [address], [facility] Glucose mass conc 87 mg/dL Normal 70-100 The [facility] Comment on above: Performed By: #### 4 1000, 01462, 36301, 80381, 23999, 38331 ####[facility] [place] [address], [facility] Potassium molar conc 4.1 mmol/L Normal 3.5-5.1 The [facility] Comment on above: Performed By: #### 4 1000, 76170, 28559, 68442, 07212, 01104 ####[facility] [place] [address], [facility] Protein mass conc 7.8 g/dL Normal 6.0-8.3 The [facility] Comment on above: Performed By: #### 4 1000, 05441, 19737, 82476, 57339, 71044 ####[facility] [place] [address], [facility] Sodium molar conc 139 mmol/L Normal 136-145 The [facility] Comment on above: Performed By: #### 4 1000, 82935, 64519, 70943, 59463, 91817 ####[facility] [place] [address], [facility] Urea nitrogen mass conc 19 mg/dL Normal 7-25 The [facility] Comment on above: Performed By: #### 4 1000, 91258, 17673, 30769, 75603, 97642 ####[facility] [place] [address], [facility] DIRECT BILIon 03-27-2017 Bilirubin.direct mass conc 0.1 mg/dL Normal 0.0-0.2 [facility] Comment on above: Performed By: #### 4 1000, 01523, 99139, 91906, 74507, 40217 ####[facility] EVEROLIMUS 02018wh 7 EVEROLIMUS 5.3 ng/mL Normal The [facility] Comment on above: Result Comment: Ther apeutic [...] the transplantcenter.Test developed and characteristics determined by [employer]. See Compliance Statement B: [email or web address]/CSPerformed by [employer],[address] [place] [id number] [email or web address], Leonid Antonio MD - Lab. Director LIPID PROFILEon 03-27-2017 Cholesterol in HDL mass conc 50 mg/dL Normal 23-92 The [facility] Comment on above: Result Comment: Slig ht variation in normal range could be due to gender and/or age.HDL CHOLESTEROL REFERENCE RANGE:20 years and older Cardiovascular Risk> or =60 mg/dL Xuybkozng73 TO 59 mg/dL Low Risk<40 mg/dL High Risk Performed By: #### 4 1000, 97943, 66791, 15164, 01031, 98602 ####[facility] [place] [address], [facility] Cholesterol in LDL mass conc 66 mg/dL Normal 0-130 The [facility] Comment on above: Result Comment: LDL IS A CALCULATIONLDL IS ONLY VALID IF THE TRIG IS LESS THAN 400. Performed By: #### 4 1000, 53573, 57429, 87867, 20178, 26338 ####[facility] [place] [address], [facility] Cholesterol mass conc 147 mg/dL Normal 120-200 The [facility] Comment on above: Result Comment: CHOL ESTEROL REFERENCE RANGE:20 YEARS AND OLDER CARDIOVASCULAR RISKLess than 200 mg/dl Low Nkiy203 to 239 mg/dl Borderline Eyuo963 mg/dl and greater High Risk Performed By: #### 4 1000, 60429, 74766, 52925, 34908, 16176 ####[facility] [place] [address], [facility] Cholesterol.total/Cho lesterol in HDL mass ratio 2.9 {ratio} Normal .0-4.5 The [facility] Comment on above: Performed By: #### 4 1000, 24227, 18561, 79575, 08024, 04551 ####[facility] [place] [address], [facility] NON-HDL CHOLESTEROL 97 mg/dL Normal [facility] Comment on above: Performed By: #### 4 1000, 96989, 13974, 10997, 03603, 37091 ####[facility] [facility] [place] [address], [place] Triglyceride mass conc 157 mg/dL High 40-149 The [facility] Comment on above: Result Comment: TRIG LYCERIDE REFERENCE RANGE:20 YEARS AND OLDER CARDIOVASCULAR RISKLESS THAN 150 mg/dl LOW [id number] TO 199 mg/dl BORDERLINE [id number] mg/dl AND GREATER HIGH RISK Performed By: #### 4 1000, 23148, 59859, 77409, 29147, 29438 ####[facility] VLDL CHOL 31 mg/dL Normal 0-40 The [facility] Comment on above: Performed By: #### 4 1000, 35395, 23249, 94167, 85979, 52384 ####[facility] MAGNESIUM BLOODon 03-27-2017 Magnesium mass conc 1.9 mg/dL Normal 1.9-2.7 The [facility] Comment on above: Performed By: #### 4 1000, 44763, 79891, 35196, 56178, 73116 ####[facility] PHOSPHORUS BLOODon 7 Phosphate mass conc 3.4 mg/dL Normal 2.5-5.0 The [facility] Comment on above: Performed By: #### 4 1000, 97586, 11714, 70526, 57470, 01983 ####[facility] TACROLIMUSon 03-27-2017 Tacrolimus mass conc (Bld) 3.7 ng/mL Low 5.0-20.0 The [facility] Comment on above: Result Comment: The [employer] Tacrolimus assay is a delayed one-step immunoassayfor the quantitative determination of tacrolimus in human whole bloodusing the chemiluminescent microparticle immunoassay (CMIA) technologywith flexible assay protocols, referred to as Chemiflex. Performed By: #### 4 1000, 53226, 83408, 94464, 36313, 96136 ####[facility] URIC ACID BLOODon 03-27-2017 Urate mass conc 4.1 mg/dL Normal 2.3-6.6 The [facility] Comment on above: Performed By: #### 4 1000, 00757, 59158, 83143, 49518, 07189 ####[facility]3000 [facility].[address] BK VIRUS QUANTITATION PCR BL OODon 02-26-2017 BKV QUANT PCR Not detected Normal The [facility] Comment on above: Result Comment: Meth od: BK virus was measured by quantitative polymerase chain reactionusing a TaqMan probe targeting the polyomavirus BK [employer] STOCK ASSOCIATE-1 gene.The lower limit of quantitation of the assay is 500 copies of BK genomeper milliliter of plasma or urine, and any detectable BK DNA below thatlevel is reported as: Detected, <500 copies/ml. Serial BK virusmeasurement can be used to monitor disease activity. (Reference:Kelsie vaughanl. J CLIN MICRO 2004; 42:2205-8563).This test was developed and its performance characteristics determinedby the [facility] Molecular Diagnostics Laboratory. It has not been approvedby the [place] Food and Drug Administration. However, such approval is notrequired for clinical implementation, and test results have been shownto be clinically useful. This laboratory is CAP accredited and CLIAcertified to perform high complexity testing. Performed By: #### 4 1000, 77581, 79938, 94603, 49278, 29794 ####[facility] [facility].[address] LOG 10 COPIES Not detected Normal The [facility] Comment on above: Performed By: #### 4 1000, 99248, 86232, 97182, 03119, 01081 ####[facility]3000 [facility].[address] CBC W/DIFFon 02-26-2017 Basophils Auto #/vol (Bld) 0.3 % Normal 0.0-2.0 The [facility] Comment on above: Performed By: #### 5 0103 ####[facility]3000 [facility].[address] Eosinophils/100 WBC Auto (Bld) 2.2 % Normal 0.0-5.0 The [facility] Comment on above: Performed By: #### 5 0103 ####[facility] Erythrocyte distribution width Auto Ratio (RBC) 13.8 % Normal 11.5-16.9 The [facility] Comment on above: Performed By: #### 5 0103 ####[facility] Hematocrit Auto Volume Fraction (Bld) 44.9 % Normal 36.0-48.0 The [facility] Comment on above: Performed By: #### 5 0103 ####[facility] Hemoglobin mass conc (Bld) 15.0 g/dL Normal 12.0-15.0 The [facility] Comment on above: Performed By: #### 5 0103 ####[facility] [facility] Lymphocytes/100 WBC Auto (Bld) 18.9 % Low 20.0-40.0 The [facility] Comment on above: Performed By: #### 5 0103 ####[facility] [facility] MCH Auto Entitic mass (RBC) 28.9 pg Normal 24.0-32.0 The [facility] Comment on above: Performed By: #### 5 0103 ####[facility] MCHC Auto mass conc (RBC) 33.4 g/dL Normal 32.0-36.0 The [facility] Comment on above: Performed By: #### 5 3 ####[facility] MCV Auto Entitic volume (RBC) 86.6 fL Normal 80.0-100.0 The [facility] Comment on above: Performed By: #### 5 3 ####[facility]3000 [facility].[address] METHOD Normal RBC Morphology Normal The [facility] Comment on above: Performed By: #### 5 3 ####[facility]3000 [facility].[address] MONOS 11.7 % High 2-8 The [facility] Comment on above: Performed By: #### 5 102 ####[facility]3000 [facility].[address] Neutrophils/100 WBC Auto (Bld) 66.9 % Normal 50-70 The [facility] Comment on above: Performed By: #### 5 3 ####[facility]3000 [facility].[address] PLAT CNT 230 Thou/mm3 Normal 100-400 The [facility] Comment on above: Performed By: #### 5 3 ####[facility]3000 [facility].[address] RBC Auto #/vol (Bld) 5.18 mill/mm3 Normal 3.50-5.50 T he [facility] Comment on above: Performed By: #### 5 3 ####[facility]3000 [facility].[address] WBC Auto #/vol (Bld) 5.8 Thou/mm3 Normal 4.0-10.0 Th e [facility] Comment on above: Performed By: #### 5 102 ####[facility] [facility].[address] COMP METABOLIC PANELon 02-26 Albumin mass conc 4.7 g/dL Normal 3.5-5.7 The [facility] Comment on above: Performed By: #### 4 1000, 90582, 27419, 23677, 68611, 53250 ####[facility] [place] [address], [facility] ALKALINE PHOSPH 115 IU/L High 34-104 The [facility] Comment on above: Performed By: #### 4 1000, 38018, 73949, 68745, 74734, 49522 ####[facility] [place] [address], [facility] ALT enzyme act/vol 18 U/L Normal 7-52 The [facility] Comment on above: Performed By: #### 4 1000, 25658, 71539, 89887, 48577, 63052 ####[facility] [facility] [place] [address], [facility] AST enzyme act/vol 22 U/L Normal 13-39 The [facility] Comment on above: Performed By: #### 4 1000, 51428, 81425, 45115, 53848, 30640 ####[facility] [place] [address], [facility] Bilirubin mass conc 0.6 mg/dL Normal 0.3-1.0 The [facility] Comment on above: Performed By: #### 4 1000, 02885, 87757, 80993, 15613, 42940 ####[facility] [place] [address], [facility] Calcium mass conc 9.8 mg/dL Normal 8.6-10.3 The [facility] Comment on above: Performed By: #### 4 1000, 12200, 64950, 17882, 00095, 35725 ####[facility] [place] [address], [facility] Chloride molar conc 103 mmol/L Normal 98-107 The [facility] Comment on above: Performed By: #### 4 1000, 43300, 72395, 46505, 63470, 09449 ####[facility] [place] [address], [facility] CO2 molar conc 29 mmol/L Normal 21-31 The [facility] Comment on above: Performed By: #### 4 1000, 04380, 21548, 42770, 12764, 69493 ####[facility] [place] [address], [facility] Creatinine mass conc 0.78 mg/dL Normal 0.60-1.20 [facility] Comment on above: Performed By: #### 4 1000, 71041, 16571, 17446, 01369, 57457 ####[facility] [place] [address], [facility] GFR/1.73 sq M predicted among blacks MDRD vol rate/area (S/P/Bld) mL/min/{1.73_m2} Normal >60 The [facility] Comment on above: Performed By: #### 4 1000, 91004, 00278, 49340, 51450, 76381 ####[facility] [place] [address], [facility] GFR/1.73 sq M predicted among non-blacks MDRD vol rate/area (S/P/Bld) mL/min/{1.73_m2} Normal >60 The [facility] Comment on above: Performed By: #### 4 1000, 09708, 88345, 28161, 92220, 74865 ####[facility] [place] [address], [place] Glucose mass conc 94 mg/dL Normal 70-100 [facility] Comment on above: Performed By: #### 4 1000, 26196, 35522, 78525, 76824, 96707 ####[facility] [place] [address], [place] Potassium molar conc 3.8 mmol/L Normal 3.5-5.1 The [facility] Comment on above: Performed By: #### 4 1000, 80515, 71647, 52053, 54255, 39939 ####[facility] [place] [address], [facility] Protein mass conc 7.4 g/dL Normal 6.0-8.3 The [facility] Comment on above: Performed By: #### 4 1000, 11079, 40511, 95950, 56712, 89358 ####[facility] Sodium molar conc 136 mmol/L Normal 136-145 The [facility] Comment on above: Performed By: #### 4 1000, 10052, 95851, 07686, 32697, 82447 ####[facility] Urea nitrogen mass conc 19 mg/dL Normal 7-25 The [facility] Comment on above: Performed By: #### 4 1000, 30024, 67843, 35255, 80780, 94742 ####[facility] DIRECT BILIon 02-26-2017 Bilirubin.direct mass conc 0.1 mg/dL Normal 0.0-0.2 The [facility] Comment on above: Performed By: #### 4 1000, 28367, 56816, 13817, 06645, 62546 ####[facility] EVEROLIMUS 87102gr 7 EVEROLIMUS 5.9 ng/mL Normal The [facility] Comment on above: Result Comment: Ther apeutic [...] the transplantcenter.Test developed and characteristics determined by [employer]. See Compliance Statement B: [email or web address] by [employer],[address] [place] [id number] [email or web address], Leonid Antonio MD - Lab. Director HEMOGLOBIN A1Con 02-26-2017 Glucose mass conc 108 mg/dL Normal 70-126 [facility] Comment on above: Performed By: #### 4 7002, 60288 ####[facility] Hemoglobin A1c/Hemoglobin.total mass fraction (Bld) 5.4 % Normal 4.0-6.0 The [facility] Comment on above: Performed By: #### 4 2704, 91636 ####[facility] LIPID PROFILEon 02-26-2017 Cholesterol in HDL mass conc 54 mg/dL Normal 23-92 The [facility] Comment on above: Result Comment: Slig ht variation in normal range could be due to gender and/or age.HDL CHOLESTEROL REFERENCE RANGE:20 years and older Cardiovascular Risk> or =60 mg/dL [id number] TO 59 mg/dL Low Risk<40 mg/dL High Risk Performed By: #### 4 1000, 82888, 64172, 78491, 34042, 29990 ####[facility] [place] [address], [facility] Cholesterol in LDL mass conc 70 mg/dL Normal 0-130 The [facility] Comment on above: Result Comment: LDL IS A CALCULATIONLDL IS ONLY VALID IF THE TRIG IS LESS THAN 400. Performed By: #### 4 1000, 94823, 31195, 14067, 51876, 59794 ####[facility] [place] [address], [facility] Cholesterol mass conc 144 mg/dL Normal 120-200 The [facility] Comment on above: Result Comment: CHOL ESTEROL REFERENCE RANGE:20 YEARS AND OLDER CARDIOVASCULAR RISKLess than 200 mg/dl Low Futa545 to 239 mg/dl Borderline Lxya036 mg/dl and greater High Risk Performed By: #### 4 1000, 06980, 94190, 78030, 44465, 07898 ####[facility] [place] [address], [facility] Cholesterol.total/Cho lesterol in HDL mass ratio 2.7 {ratio} Normal .0-4.5 [facility] Comment on above: Performed By: #### 4 1000, 40504, 80442, 37633, 58935, 90251 ####[facility] [place] [address], [facility] NON-HDL CHOLESTEROL 90 mg/dL Normal The [facility] Comment on above: Performed By: #### 4 1000, 13407, 66589, 60133, 31733, 56099 ####[facility] [place] [address], [facility] Triglyceride mass conc 101 mg/dL Normal 40-149 The [facility] Comment on above: Result Comment: TRIG LYCERIDE REFERENCE RANGE:20 YEARS AND OLDER CARDIOVASCULAR RISKLESS THAN 150 mg/dl LOW [id number] TO 199 mg/dl BORDERLINE VLMI210 mg/dl AND GREATER HIGH RISK Performed By: #### 4 1000, 14832, 50274, 63735, 03898, 25451 ####[facility] VLDL CHOL 20 mg/dL Normal 0-40 The [facility] Comment on above: Performed By: #### 4 1000, 27802, 89792, 07815, 76007, 44141 ####[facility] MAGNESIUM BLOODon 02-26-2017 Magnesium mass conc 1.9 mg/dL Normal 1.9-2.7 The [facility] Comment on above: Performed By: #### 4 1000, 70893, 49202, 57002, 45243, 13058 ####[facility] [facility].[address] PHOSPHORUS BLOODon 7 Phosphate mass conc 4.1 mg/dL Normal 2.5-5.0 [facility] Comment on above: Performed By: #### 4 1000, 90443, 23949, 59298, 37124, 00886 ####[facility].[address] TACROLIMUSon 02-26-2017 Tacrolimus mass conc (Bld) 4.2 ng/mL Low 5.0-20.0 The [facility] Comment on above: Result Comment: The [employer] Tacrolimus assay is a delayed one-step immunoassayfor the quantitative determination of tacrolimus in human whole bloodusing the chemiluminescent microparticle immunoassay (CMIA) technologywith flexible assay protocols, referred to as Chemiflex. Performed By: #### 4 6447, 54536 ####[facility] [place] [address], [facility] URIC ACID BLOODon 02-26-2017 Urate mass conc 4.3 mg/dL Normal 2.3-6.6 The [facility] Comment on above: Performed By: #### 4 1000, 86314, 21198, 61466, 45386, 10725 ####[facility] [place] [address] Vital Signs Date Time Vital Sign Value Performing Clinician Facility 08-30-2023 09:220400 Body height 182.88 cm [facility] 08-30-2023 09:22-0400 Body mass index (BMI) [Ratio] 17.9 kg/m2 [facility] 08-30-2023 09:22-0400 Body temperature 99.8 [degF] [facility] 08-30-2023 09:22-0400 Body weight 59.87 kg [facility] 08-30-2023 09:22-0400 Diastolic blood pressure 73 mm[Hg] [facility] 08-30-2023 09:220400 Heart rate 67 /min [facility] 08-30-2023 09:22-0400 SaO2% (BldA) [Mass fraction] 95 % [facility] 08-30-2023 09:22-0400 Systolic blood pressure 111 mm[Hg] [facility] 03-27-2023 11:30-0500 Body height 152.4 cm Cathy Bella Other [facility] Other 03-27-2023 11:30-0500 Body mass index (BMI) [Ratio] 25.39 kg/m2 Cathy Bella Other [facility] Other 03-27-2023 11:30-0500 Body temperature 97.5 [degF] Cathy Bella Other [facility] Other 03-27-2023 11:30-0500 Body weight 58.97 kg Cathy Bella Other [facility] Other 03-27-2023 11:30-0500 Respiratory rate 18 /min Cathy Bella Other [facility] Other 03-27-2023 11:30-0500 SaO2% (BldA) [Mass fraction] 96 % Cathy Bella Other [facility] Other 09-21-2022 09:00-0400 Body height 152.4 cm Martha Paola Other [facility] Other 09-21-2022 09:00-0400 Body mass index (BMI) [Ratio] 22.46 kg/m2 Martha Paola Other [facility] Other 09-21-2022 09:00-0400 Body temperature 97.6 [degF] Martha Paola Other [facility] Other 09-21-2022 09:00-0400 Body weight 52.16 kg Martha Paola Other [facility] Other 09-21-2022 09:00-0400 Diastolic blood pressure 70 mm[Hg] Martha Paola Other [facility] Other 09-21-2022 09:00-0400 Respiratory rate 18 /min Martha Paola Other [facility] Other 09-21-2022 09:00-0400 SaO2% (BldA) [Mass fraction] 96 % Martha Paola Other [facility] Other 09-21-2022 09:00-0400 Systolic blood pressure 107 mm[Hg] Martha Paola Other [facility] Other 01-12-2022 13:55-0400 Body height 152.4 cm Cathy Bella Other [facility] Other 01-12-2022 13:55-0400 Body mass index (BMI) [Ratio] 19.53 kg/m2 Cathy Bella Other [facility] Other 01-12-2022 13:55-0400 Body temperature 96.9 [degF] Cathy Bella Other [facility] Other 01-12-2022 13:55-0400 Body weight 45.36 kg Cathy Bella Other [facility] Other 01-12-2022 13:55-0400 Respiratory rate 18 /min Cathy Bella Other [facility] Other 01-12-2022 13:55-0400 SaO2% (BldA) [Mass fraction] 97 % Cathy Bella Other [facility] Other 12-28-2021 10:20-0400 Body height 152.4 cm Martha Guevara Other [facility] Other 12-28-2021 10:20-0400 Body mass index (BMI) [Ratio] 21.48 kg/m2 Martha Paola Other [facility] Other 12-28-2021 10:20-0400 Body temperature 98 [degF] Martha Paola Other [facility] Other 12-28-2021 10:20-0400 Body weight 49.9 kg Martha Paola Other [facility] Other 12-28-2021 10:20-0400 Respiratory rate 18 /min Martha Smithmond Other [facility] Other 12-28-2021 10:20-0400 SaO2% (BldA) [Mass fraction] 97 % Martha Guevara Other [facility] Other 12-25-2021 10:05-0400 Body height 152.4 cm Cathy Shayne Other [facility] Other 12-25-2021 10:05-0400 Body mass index (BMI) [Ratio] 21.48 kg/m2 Cathy Bella Other [facility] Other 12-25-2021 10:05-0400 Body temperature 96 [degF] Cathy Bella Other [facility] Other 12-25-2021 10:05-0400 Body weight 49.9 kg Cathy Bella Other [facility] Other 12-25-2021 10:05-0400 Respiratory rate 18 /min Cathy Bella Other [facility] Other 12-25-2021 10:05-0400 SaO2% (BldA) [Mass fraction] 97 % Cathy Bella Other [facility] Other 10-27-2021 12:35-0400 Body height 152.4 cm Cathy Bella Other [facility] Other 10-27-2021 12:35-0400 Body mass index (BMI) [Ratio] 22.85 kg/m2 Cathy Bella Other [facility] Other 10-27-2021 12:35-0400 Body weight 53.07 kg Cathy Bella Other [facility] Other 07-30-2022 12:35-0400 Diastolic blood pressure 87 mm[Hg] Cathy Bella Other [facility] Other 10-27-2021 12:35-0400 SaO2% (BldA) [Mass fraction] 98 % Cathy Bella Other [facility] Other 10-27-2021 12:35-0400 Systolic blood pressure 130 mm[Hg] Cathy Bella Other [facility] Other 08-14-2021 10:40-0400 Body height 152.4 cm Martha Guevara Other [facility] Other 08-14-2021 10:40-0400 Body mass index (BMI) [Ratio] 22.46 kg/m2 Martha Smithmond Other [facility] Other 08-14-2021 10:40-0400 Body temperature 96.7 [degF] Martha Smithmond Other [facility] Other 08-14-2021 10:40-0400 Body weight 52.16 kg Martha Smithmond Other [facility] Other 08-14-2021 10:40-0400 Diastolic blood pressure 68 mm[Hg] Martha Paola Other [facility] Other 08-14-2021 10:40-0400 Respiratory rate 20 /min Martha Paola Other [facility] Other 08-14-2021 10:40-0400 SaO2% (BldA) [Mass fraction] 98 % Martha Paola Other [facility] Other 08-14-2021 10:40-0400 Systolic blood pressure 144 mm[Hg] Marhta Guevara Other [facility] Other Encounters Encounter Date Encounter Type Care Provider Facility Start: 01-14-2024 End: 01-14-2024 Clinisync Result Encounter Generic External Data Provider [facility] External [facility] Unsolicited Start: 01-14-2024 End: 01-14-2024 Clinisync Result Encounter Generic External Data Provider [facility] External Department Unsolicited Start: 09-23-2023 End: 09-23-2023 ambulatory VIRGIL [facility] Start: 09-02-2023 End: 09-02-2023 ambulatory ESTER PADILLA Not Available Start: 08-30-2023 End: 08-30-2023 ambulatory [facility] Work Phone: Start: 08-30-2023 End: 08-30-2023 Patient encounter procedure [facility] Work Phone: Start: 04-02-2023 End: 04-02-2023 ambulatory RAMON CARROLL Not Available Start: 03-27-2023 End: 03-27-2023 ambulatory Cathy Bella Other [facility] Other Start: 03-27-2023 Office outpatient visit 25 minutes Cathy Bella [facility] Start: 03-17-2023 End: 03-17-2023 ambulatory VIRGIL [facility] Start: 03-06-2023 End: 03-06-2023 ambulatory ESTER Townsend HEMDAWN Not Available Start: 02-12-2023 End: 02-12-2023 ambulatory ESTER M HEMMER Not Available Start: 09-21-2022 End: 09-21-2022 ambulatory Martha Guevara Other [facility] Other Start: 09-21-2022 Office outpatient visit 15 [...] Start: 03-11-2022 End: 03-12-[address] DOCTOR SHAWC Facility:[facility] Start: 02-08-2022 End: 02-09-[address] DOE BRIDGES Facility:[facility] Start: 01-28-2022 End: 01-29-[address] DOCTOR SHAWC Facility:[facility] Start: 01-12-2022 End: 01-12-2022 ambulatory Cathy Bella Other [facility] Other Start: 01-12-2022 Office outpatient visit 15 minutes Cathy Bella [facility] Start: 01-07-2022 End: 01-07-2022 ambulatory ISATU GUAMAN . Facility:[facility] Start: 01-03-2022 End: 01-04-[address] VIRGIL SWIFT Facility:[facility] Start: 12-28-2021 End: 12-28-2021 ambulatory Martha Geuvara Other [facility] Other Start: 12-28-2021 Office outpatient visit 15 minutes Marthajd Guevara [facility] Start: 12-25-2021 End: 12-25-2021 ambulatory Cathy Bella Other [facility] Other Start: 12-25-2021 Office outpatient visit 25 minutes Cathy Shayne [facility] Start: 12-05-2021 End: 12-06-[address] DOCTOR SHAWC Facility:[facility] Start: 11-07-2021 End: 11-08-[address] DOCTOR MISC Facility:[facility] Start: 10-27-2021 End: 10-27-2021 ambulatory Cathy Bella Other [facility] Other Start: 10-27-2021 Office outpatient visit 15 minutes Cathy Bella [facility] Start: 10-15-2021 End: 10-16-[address] DOCTOR MISC Facility:[facility] Start: 10-08-2021 End: 10-09-[address] DOCTOR MISC Facility:[facility] Start: 09-10-2021 End: 09-11-[address] DOCTOR MISC Facility:[facility] Start: 08-14-2021 End: 08-14-2021 ambulatory Martha Paola Other [facility] Other Start: 08-14-2021 Office outpatient visit 15 minutes Martha Guevara [facility] Start: 12-31-2017 End: 01-01-2018 Patient encounter VIRGIL HAYNES Facility:[facility] Start: 12-25-2017 End: 12-26-2017 Patient encounter ROSALINDA ROSENBAUM Facility:[facility] Start: 10-30-2017 End: 10-31-2017 Patient encounter ROSALINDA ROSENBAUM Facility:[facility] Start: 10-23-2017 End: 10-24-2017 Patient encounter ROSALNIDA ROSENBAUM Facility:[facility] Start: 09-25-2017 End: 09-26-2017 Patient encounter ROSALINDA ROSENBAUM Facility:[facility] Start: 08-26-2017 End: 08-27-2017 Patient encounter ROSALINDA ROSENBAUM Facility:[facility] Start: 07-23-2017 End: 07-24-2017 Patient encounter ROSALINDA ROSENBAUM Facility:[facility] Start: 06-20-2017 End: 06-21-2017 Patient encounter ROSALINDA ROSENBAUM Facility:[facility] Start: 05-27-2017 End: 05-28-2017 Patient encounter ROSALINDA ROSENBAUM Facility:[facility] Start: 04-29-2017 End: 04-30-2017 Patient encounter ROSALINDA ROSENBAUM Facility:[facility] Start: 03-27-2017 End: 03-28-2017 Patient encounter ROSALINDA ROSENBAUM Facility:[facility] Start: 02-26-2017 End: 02-27-2017 Patient encounter DOE BRIDGES Facility:[facility] Procedures Date Procedure Procedure Detail Performing Clinician Start: 01-14-2024 ALL CBC WITH AUTO DIFF Generic External Data Provider Start: 08-30-2023 Quick Strep (POC) Start: 01-29-2023 History of renal transplant Renal transplant recipient Generic Provider Start: 07-23-2022 Mammography Generic Pr ovider Start: 08-14-2021 Piperacillin/tazobactam Martha Guevara Other Start: 07-28-2017 Colonoscopy Generic Pr ovider Plan of Treatment Date Care Activity Detail Author Start: 07-29-2027 Screening for malign ant neoplasm of colon [facility] Start: 02-14-2026 Screening for malign ant neoplasm of colon FIT-DNA [facility] Start: 04-02-2024 Medicare Annual Well ness (AWV) Medicare Annual Wellness (AWV) [facility] Start: 11-30-2023 Influenza vaccination Influenza Vacc ine (#1) [facility] Start: 07-24-2023 Screening for malign ant neoplasm of breast Mammogram [facility] Start: 1961 Pneumococcal Vaccine : 65+ Years (1 of 2 - PCV) Pneumococcal Vaccine: 65+ Years (1 of 2 - PCV) [facility] Start: 1955 Screening for malign ant neoplasm of colon [facility] Immunizations Immunization Date Immunization Notes Care Provider [facility] 01-10-2023 Influenza, Seasonal, Quadrivalent, Adjuvanted Generic Provider [facility] 01-10-2023 influenza virus vaccine, unspecified formulation Generic Provider [facility] 09-16-2022 zoster vaccine recombinant Generic Provider [facility] 07-22-2022 zoster vaccine recombinant Generic Provider [facility] 02-19-2022 Influenza, injectabl e, Madin [place] Canine Kidney, preservative free, quadrivalent Generic Provider [facility] 02-19-2022 SARS-COV-2 (COVID-19 ) vaccine, mRNA, spike protein, LNP, bivalent, PF Generic Provider [facility] 01-09-2021 influenza, seasonal, injectable Generic Provider [facility] 12-12-2019 influenza, injectabl e, quadrivalent, preservative free Generic Provider [facility] 12-26-2018 influenza, injectabl e, quadrivalent, contains preservative Generic Provider [facility] 01-21-2018 influenza, injectabl e, quadrivalent, contains preservative Generic Provider [facility] 12-29-2017 influenza, injectabl e, quadrivalent, preservative free Generic Provider [facility] 12-20-2016 influenza, injectabl e, quadrivalent, preservative free Generic Provider [facility] 12-02-2016 seasonal influenza, intradermal, preservative free Generic Provider [facility] 01-16-2015 influenza, injectabl e, quadrivalent, preservative free Generic Provider [facility] 03-16-2009 influenza virus vaccine, split virus (incl. purified surface antigen) Martha Guevara Other [facility] Other 03-16-2009 influenza virus vaccine, unspecified formulation [facility] Payers Date Payer Category Payer Medicare (Managed Care) [facility] [id number] 1958 [facility] [id number] 2..[id number] 1959 Self-pay 1959 Unknown [id number] 1956 Unknown [id number] 2..840.1.027119.3.579. 2. 1956 Unknown [id number] 2..840.1.584633.3.579. 2. 1956 Unknown [id number] 2.16.840.1.383308.3.579. 2.647 1956 Unknown [id number] 2..840.1.175179.3.579. 2.647 1956 Unknown [id number] 2.16.840.1.619570.3.579. 2.647 1956 Unknown [id number] 2.16.840.1.669181.3.579. 2.647 1956 Unknown [id number] 2.16.840.1.971116.3.579. 2.647 1956 Unknown [id number] 2.16.840.1.926391.3.579. 2.647 1956 Unknown [id number] 2.16.840.1.102911.3.579. 2.647 1956 Unknown [id number] 2.16.840.1.002251.3.579. 2.647 1956 Unknown [id number] 2.16.840.1.377656.3.579. 2.647 1956 Unknown [id number] 2.16.840.1.899713.3.579. 2.647 1956 Unknown [id number] 2.16.840.1.910246.3.579. 2.59 1956 Unknown [id number] 2.16.840.1.336060.3.579. 2.593 1956 Unknown [id number] 2.16.840.1.152126.3.579. 2.59 1956 Unknown [id number] 2.16.840.1.861489.3.579. 2.593 1956 Unknown [id number] 2.16.840.1.177246.3.579. 2.59 1956 Unknown [id number] 2.16.840.1.866835.3.579. 2.593 1956 Unknown [id number] 2.16.840.1.420683.3.579. 2.59 1956 Unknown [id number] 2.16.840.1.832767.3.579. 2.593 1956 Unknown [id number] 2.16.840.1.040378.3.579. 2.593 1956 Unknown [id number] 2.16.840.1.343037.3.579. 2.593 1956 Unknown [id number] 2.16.840.1.507529.3.579. 2.593 1956 Unknown [id number] 2.16.840.1.403307.3.579. 2.593 1956 Unknown [id number] 2.16.840.1.514133.3.579. 2.593 1956 Unknown [id number] 2.16.840.1.937538.3.579. 2.593 1956 Unknown [id number] 2.16.840.1.170623.3.579. 2.593 1956 Unknown [id number] 2.16.840.1.945326.3.579. 2.1259 1956 Unknown [id number] 2.16.840.1.319002.3.579. 2.1259 1956 Unknown [id number] 2.16.840.1.980353.3.579. 2.1259 1956 Unknown [id number] 2.16.840.1.678655.3.579. 2.1259 Unknown [id number] 2.16.840.1.125328.3.579. 2.593 Unknown Amy MCGREGOR/DAYSI [id number] Social History Date Type Detail Facility Unknown if ever smoked [facility] Other Start: 04-02-2023 End: 09-02-2023 Sex Assigned At [facility] Other Start: 01-29-2023 End: 08-30-2023 Tobacco smoking status NHIS Never smoked tobacco (finding) [facility] Start: 1955 Sex Assigned At Female [facility] Start: 01-29-2023 Tobacco use and exposure Smokeless tobacco non-user [facility] Start: 09-02-2023 Alcoholic beverage intake Lifetime non-drinker (finding) [facility] Start: 04-02-2023 End: 09-02-2023 History of Social function [facility] Start: 1955 Sex assigned at Not on file N [facility] Clinical Notes 11-10-2007 to 12-18-2023 Note Date & Type Note Facility 12-18-2023 Note Will review by phone today with Dr. Negro Vivas tac level 3.9 for 2 consecutive months and if any dose changes, will notify this pt and amend this note. Most recent IR tacrolimus dosing on record is 0.5mg BID [facility] 12-09-2023 Note Prior auth for Mycop henolate was submitted via cmm Approved- scanned into media Keycode: [id number] [facility] 11-26-2023 Note Prior auth submitted via CMM PA Case: [id number], Status: Approved, Coverage Starts on: 08/27/2023 12:00:00 AM, Coverage Ends on: 11/25/2024 12:00:00 AM Keycode: [id number] [facility] 09-23-2023 Note 09/23/23 Chief Complaint Patient presents with Kidney Follow-up Pt has been having sores in her mouth for the past month. PCP: Ramon Carroll MD Txp Referring: Preferred Pharmacy: [facility] - [place], [place] - [address] [facility] [address] [id number] [place], [place] - [address] [facility] [address] [facility] [id number] [facility] [place], [place] - [address] [facility] [address] [facility] [address] Subjective Visit Vitals BP 139/74 (BP Location: Left arm, Patient Position: Sitting, BP Cuff Size: Adult) Pulse 59 Temp 36.3 ???C (97.3 ???F) (Oral) Resp 18 Ht 1.524 m (5') Wt 58.5 kg (129 lb) SpO2 99% BMI 25.19 kg/m??? OB Status Postmenopausal Smoking Status Never BSA 1.57 m??? No Known Allergies Medication Documentation Review Audit Reviewed by Ester Welsh MA ([employer] Operator) on 09/23/23 at 0859 Medication Order Taking? Sig Documenting Provider Last Dose Status amLODIPine (Norvasc) 5 mg tablet [id number] Yes TAKE 1 TABLET BY MOUTH EVERY DAY Virgil Haynes NP Taking Active amoxicillin (Amoxil) 500 mg capsule [id number] No 1 capsule every 8 (eight) hours. Yasmin Mancia MD Not Taking Active atorvastatin (Lipitor) 20 mg tablet [id number] Yes TAKE 1 TABLET BY MOUTH EVERY DAY AT BEDTIME Virgil Haynes NP Taking Active baclofen (Lioresal) 10 mg tablet [id number] No Yasmin Mancia MD Not Taking Active cyanocobalamin (Vitamin B-12) 500 mcg tablet [id number] Yes in the morning. Historical MD Blanche Taking Active magnesium oxide (Mag-Ox) 400 mg (241.3 mg magnesium) tablet [id number] Yes Take 400 mg by mouth in the morning. Yasmin Mancia MD Taking Active mycophenolate (Myfortic) 180 mg EC tablet [id number] Yes TAKE 4 TABLETS BY MOUTH IN THE MORNING AND AT BEDTIME Patient taking differently: Take 540 mg by mouth in the morning and at bedtime. Doe Bridges MD Taking Active omega-3 fatty acids-fish oil (Fish OiL Extra Strength) 435-880 mg capsule [id number] Yes 1 capsule 1 (one) time each day at the same time. Historical MD Blanche Taking Active PARoxetine (Paxil) 10 mg tablet [id number] Yes Take 10 mg by mouth in the morning. Historical MD Blanche Taking Active potassium gluconate 595 mg (99 mg) tablet [id number] Yes every 12 (twelve) hours. Historical ProviderMD Taking Active spironolactone (Aldactone) 25 mg tablet [id number] Yes TAKE 1 TABLET BY MOUTH EVERY DAY Virgil Haynes NP Taking Active tacrolimus (Prograf) 0.5 mg capsule [id number] Yes TAKE ONE CAPSULE BY MOUTH EVERY [...] Continue meds and MONTHLY Labs with New [facility] standing Order given today. Follow up 6 months or sooner if needed. See Derm See PCP as scheduled: Dr Carroll. Magic Mouthwash script provided. Chart Review today: 03.17.23 Pt presents visit with . Pt states labs done Last week in [facility] and [place] calling for results. Pt seeing Derm in [place] for lesion: forearm and other lesions. Hx: melanoma PCP: shelley Khoury (more content not included)... [facility] 03-27-2023 Evaluation note Encounter Date Diagnosis Assessment Notes Feb, Contact with and (suspected) exposure to covid-19 (ICD-10 - Z20.822) Feb, Viral URI (ICD-10 - J06.9) Advised patient that COVID/Influenza A/B/RSV test and rapid Strep test was negative today. Advised patient that will treat as viral URI. Supportive care as directed, increase fluids and rest, Tylenol as directed, rx of [place], cool mist humidifier, throat lozenges. Discussed infection [...] condition. Feb, Sore throat (ICD-10 - J02.9) [facility] Other 12-18-2023 Note03/17/23 Chief Complaint Patient presents with Kidney Follow-up Patient would like to know if Virgil would prescribe depression medication. PCP: Ramon Carroll MD Txp Referring: Preferred Pharmacy: [facility] - [place], [place] - [address] [facility] [address] [id number] - [place], [place] - [address] [address] [facility] - [place], [place] - [address] [facility] [address] [facility] [address] Subjective Visit Vitals BP 142/80 (BP Location: Right arm, Patient Position: Sitting) Pulse 63 Temp 36.3 ???C (97.4 ???F) (Oral) Ht 1.524 m (5') Wt 60.6 kg (133 lb 9.6 oz) BMI 26.09 kg/m??? Smoking Status Never BSA 1.6 m??? No Known Allergies Medication Documentation Review Audit Reviewed by Flakita Lagos MA ([employer]ing [employer] Operator) on 03/17/23 at 0956 Medication Order Taking? Sig Documenting Provider Last Dose Status amLODIPine (Norvasc) 5 mg tablet [id number] Yes TAKE 1 TABLET BY MOUTH EVERY DAY Virgil Haynes NP Taking Active amoxicillin (Amoxil) 500 mg capsule [id number] No 1 capsule every 8 (eight) hours. Yasmin Mancia MD Not Taking Active atorvastatin (Lipitor) 20 mg tablet [id number] Yes TAKE 1 TABLET BY MOUTH EVERY DAY AT BEDTIME Virgil Haynes NP Taking Active baclofen (Lioresal) 10 mg tablet [id number] Yes Historical MD Blanche Taking Active cyanocobalamin (Vitamin B-12) 500 mcg tablet [id number] No in the morning. Yasmin Mancia MD Not Taking Active magnesium oxide (Mag-Ox) 400 mg (241.3 mg magnesium) tablet [id number] Yes Take 400 mg by mouth in the morning. Yasmin Mancia MD Taking Active mycophenolate (Myfortic) 180 mg EC tablet [id number] Yes TAKE 4 TABLETS BY MOUTH IN THE MORNING AND AT BEDTIME Doe Bridges MD Taking Active omega-3 fatty acids-fish oil (Fish OiL Extra Strength) 435-880 mg capsule [id number] No 1 capsule 1 (one) time each day at the same time. Yasmin Mancia MD Not Taking Active PARoxetine (Paxil) 10 mg tablet [id number] Yes Take 10 mg by mouth in the morning. Yasmin Mancia MD Taking Active potassium gluconate 595 mg (99 mg) tablet [id number] No every 12 (twelve) hours. Yasmin Mancia MD Not Taking Active spironolactone (Aldactone) 25 mg tablet [id number] Yes TAKE 1 TABLET BY MOUTH EVERY DAY Virgil Haynes NP Taking Active tacrolimus (Prograf) 0.5 mg capsule [id number] Yes TAKE ONE CAPSULE BY MOUTH EVERY [...] labs done Last week in [facility] and [place] calling for results. Pt seeing Derm in [place] for lesion: forearm and other lesions. Hx: [...] Hgb. Pt AGAIN instructed to use our [facility] Transplant standing order for her monthly labs. Pt reports B/P stable at home Discussed hydration PLan of Care: Continue meds and MONTHLY Labs with [facility] standing Order. Follow up 6 months or [...] ; Creat 0.9 ; (more content not included)...[facility]10-18-2023 Note Reviewed Ext Tac 3.6 over the phone with Dr. Vivas, per phone order no changes at this time.[facility]10-15-2022 Evaluation note* Encounter Date Diagnosis Assessment Notes [...] understanding and is agreeable with treatment plan [facility] Other 09-30-2022 Evaluation note* Encounter Date Diagnosis [...] no improvement in 2 to 3 days. [facility] Other 09-27-2022 Evaluation note* Encounter Date Diagnosis [...] treatment plan. 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 Medical History hypertension Medical History kidney transplant Surgical History resection of superior cervical mass 11/10/07 Surgical History Teeth extraction in preparation for renal transplant Surgical History portacath placement Surgical History kidney transplant 2014 Hospitalization History see above [facility] Other Evaluation noteNort [employer] Other Evaluation note* Diagnosis Onset Date Resolution Status Thrush, oral acute Sore throat noneactive [facility] Work Phone: History general Narrative - ReportedNoXendo Other Summary Purpose Family History Relationship Condition Age at Onset Recorded Date/T susie father Unknown family member Unknown Not Specified Unknown Advance Directives Advance Directive Response Recorded Date/ Time Advance Directives No August 16 1:54pm Chief Complaint and Reason for Visit Chief Complaint sore throat Reason for Visit Thrush, oral Sore throat Additional Source Comments INFORMATION SOURCE (unrecogn ized section and content) DATE CREATED AUTHOR 01/30/2018 [facility] DATE CREATED AUTHOR AUTHOR'S ORGANIZ ATION 08/17/2021 [facility] DATE CREATED AUTHOR AUTHOR'S ORGANIZ ATION 08/13/[address] [facility] DATE CREATED AUTHOR AUTHOR'S ORGANIZ ATION 09/03/2023 [facility] DATE CREATED AUTHOR AUTHOR'S ORGANIZ ATION 12/20/2023 [facility] REASON FOR VISIT (unrecogniz ed section and content) DYSURIADYSURIADYSURIAPOSS RA SH ON BACK, ITCHINGDODGE JOURNEY, SORE THROAT, COUGHBLACK DODGE JOURNT SORE THROATIN CAR, MOUTH SORES, CALL [phone] THROAT, COUGHING, DRAINAGE Care Teams (unrecognized sec tion and content) Team Status: Active Member Role Status Dates Shelly May Primary Care Provider Active Team Status: Inactive Member Role Status Dates Shelly May Primary Care Provider Active Start: August 30, 2023 End: August 30, 2023 Lindsay Soria APRN Attending Provider Active Start: August 30, 2023 End: August 30, 2023 Imaging Analyst Relationship Specialty Start Date End Date Ramon Carroll MD [address] [facility] [address] [place] [address] PCP - Amy FERREIRA 04/08/21 Ramon Carroll MD [address] [facility] [address] [place] [address] PCP - General Internal Medicine 08/06/22 Goals (unrecognized section and content) Goals may [...] BE BASED ON THE PRIMARY CLINICAL RECORDS. [employer] provides no warranty or guarantee of the accuracy or completeness of information in this document.
== END 2024-02-11 07:15 | disposition home or self-care (01) ==
LOC: MAMMO 07:14
PROVIDERS: PCP Internal Medicine; Visit Provider Internal Medicine
DX: Z12.31 Encounter for screening mammogram for malignant neoplasm of breast (principal)
CPT/HCPCS: 77063; 77067

== ENCOUNTER 2024-02-13 06:40 | Outpatient (OUT) | payer MEDICARE, SELFPAY ==
--- OUTSIDE RECORDS SUMMARY | 2024-02-13 06:45 | XMS_ITS | CCD ---
Author Organization [facility] Care Team Providers Care Reamer Hand Name Role Phone [employer], DINKAR Unavailable Unavailable [employer], DINKAR Unavailable Unavailable CARROLL, RAMON Unavailable [...] Unavailable MISC, DR OBRIEN Admitting Unavailable SAC [employer] [place], DR CONNORS Consulting Unavailable CARROLL, DR DARBY Primary Care Unavailable MISC, DR OBRIEN Attending Unavailable MISC, DR OBRIEN Admitting Unavailable MISC, DR OBRIEN Attending Unavailable MISC, DR OBRIEN Admitting Unavailable MISC, DR OBRIEN Consulting Unavailable CARROLL, DR DARBY Primary Care Unavailable [employer] [place], DR CONNORS Consulting Unavailable [employer] [place], DR CONNORS Attending Unavailable CARROLL, DR DARBY Primary Care Unavailable [employer] [place] [employer], DR CONNORS Admitting Unavailable [employer] [place], DR CONNORS Attending Unavailable CARROLL, DR DARBY Primary Care Unavailable SAC [employer] [place], DR CONNORS Admitting Unavailable [employer] [place], DR CONNORS Consulting Unavailable MISC, DR [...] CARROLL, DR DARBY Primary Care Unavailable [employer] [place], DR CONNORS Consulting Unavailable [employer] [place], DR CONNORS Attending Unavailable CARROLL, DR DARBY Primary Care Unavailable [employer] [place], DR CONNORS Admitting Unavailable MISC, DOCTOR Attending Unavailable MISC, DR OBRIEN Admitting Unavailable MISC, DR OBRIEN Consulting Unavailable CARROLL, DR DARBY Primary Care Unavailable MISC, DOCTOR Attending Unavailable MISC, DR OBRIEN Admitting Unavailable MISC, DR OBRIEN Consulting Unavailable CARROLL, DR DARBY Primary Care Unavailable [employer] [place], DR CONNORS Consulting Unavailable [employer] [place], DR CONNORS Attending Unavailable [employer] [place] [employer], DR CONNORS Admitting Unavailable DR RAMON CARROLL Primary Care Unavailable RAMON CARROLL Attending Unavailable ESTER PADILLA Attending Unavailable ESTER PADILLA Attending Unavailable ESTER PADILLA Attending Unavailable VIRGIL HAYNES Attending Unavailable VIRGIL HAYNES Attending Unavailable Ramon Carroll MD Unavailable Ramon Carroll MD Primary Care Provider [phone] Medications Current Medications Medication Drug Class(es) Dates Sig (Normalized) Sig (Original) [id number] 200 actuat albuterol 0.09 mg/actuat metered dose [...] 1.5 mg/ml oral solution (1 source) Uncompetitive P-pufykq-E-asparta te Receptor Antagonist, Sigma-1 Agonist Start: 03-27-2023 take 10 mL by mouth every eight hours [place] DM 7.5-7.5 MG/5ML 10 mL Orally every 8 hours for 5 days Feb, Active ergocalciferol 1.25 mg oral capsule (9 sources) Provitamin D2 Compound Start: 06-27-2011 take 1 capsule by mouth every week Vitamin D (Ergocalciferol) 73624 UNIT 1 capsule Orally Once a Week [...] 3 tablets before bedtime. 01/27/2023 Active nystatin 996264 unt/ml oral suspension (2 sources) Polyene Antifungal Start: 09-02-2023 take 5 mL by mouth four times daily nystatin (Mycostatin) 643296 UNIT/ML suspension Indications: Thrush, oral SWISH AND SWALLOW 5 MLS ORALLY 4 TIMES A DAY FOR 10 DAYS 60 mL 1 09/02/2023 Active Start: 08-30-2023 take 1 mL by mouth f our times daily Nystatin Active 5 ML PO Four times daily 200 10 August 30, 2023 12:00am swish and swallow Sunbright 5-Zcj-Ngi-Fish Oil (Fish Oil) 1,000 mg (120 mg-180 mg) capsule (1 source) Start: 08-30-2023 take 1 capsule by mouth once daily Sunbright 6-Ixh-Kix-Fish Oil (Fish Oil) 1,000 mg (120 mg-180 [...] Start: 12-25-2021 take 1 capsule by mo [facility] every eight hours Tessalon Perles 100 MG [...] Episodic Other aftercare (2 sources) Other intermediate project manager (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 therapy; Translations: [OTHER ASSISTED (CURRENT) DRUG THERAPY] Onset: 02-26-2017 Episodic Other [...] fL [facility] MONOCYTES ABSOLUTE AUTO 0.8 [facility] Monocytes/100 WBC (Bld) 11.1 % 1.7 - 12.0 % [facility] NEUTROPHILS ABSOLUTE AUTO 4.9 [facility] Neutrophils/100 WBC (Bld) 67.3 % 43.0 - 75.0 % [facility] Platelet mean volume (Bld) [Entitic vol] 11.2 fL 9.5 - 13.5 fL [facility] TBH EO # 0.2 [facility] TBH PLT 219 [facility] TBH RBC 4.62 [facility] TB WBC 7.3 [facility] Documentationon 12-09-2023 Documentation [id number] Tanika Grimm 1955 F Date Provider Department Center 12/09/2023 BlossomFERNANDA LOMBARDO TXGely None Family History Family Status - Relation Status Age at Mother Father Reason for Visit and Comments: Prior auth : Mycophenolate [Other] [facility] Documentationon 11-26-2023 Documentation [id number] Tanika Grimm 1955 Date Provider Department Center 11/26/2023 CarlosFERNANDA MASON TXGely None Family History Family Status - Relation Status Age at Mother Father Reason for Visit and Comments: Prior auth Tac 0.5mg [Other] [facility] Documentationon 10-27-2023 Documentation [id number] Tanika Grimm 1955 Date Provider Department Center 10/27/2023 750-ANEL MIRANDA TXP None Family History Family Status - Relation Status Age at Mother Father [facility] 29on 09-23-2023 29 Addended by: DIANE LE on: 09/23/2023 03:27 PM Modules accepted: Orders [facility] Follow-Upon 09-23-2023 Follow-Up [id number] Tanika Grimm 1955 Date Provider Department Center 09/23/2023 124-VIRGIL HAYNES TXP None Family History Family Status - Relation Status Age at Mother Father Level of Service:48560 ND OFFICE/OUTPATIENT ESTABLISHED MOD MDM 30 MIN Reason for Visit and Comments: Kidney Follow-up [] - Pt has been having sores in her mouth for the past month. [facility] No Panel InformationOrdered By: Lindsay Soria on 08-30-2023 Quick Strep (POC) [facility] Documentationon 08-26-2023 Documentation [id number] AliceTanika Shabazz 1955 F Date Provider Department Center 08/26/2023 750-RUTH, TYMARA TXP None No family history on file [facility] Documentationon 05-19-2023 Documentation [id number] GrimmTanika Shabazz 1955 F Date Provider Department Center 05/19/2023 750-RUTH, TYMARA TXP None No family history on file [facility] COVID/FLU/RSV RT-PCRon 03-27 SARS-CoV-2 (COVID-19) RNA MURALI+probe Ql (Unsp spec) Negative [facility] Other COVID/FLU/RSV RT-PCR Negative [facility] Other Quick Strepon 03-27-2023 S. pyogenes Org specific cx Ql (Throat) Negative [facility] Other Quick Strep [facility] Other 29on 03-17-2023 29 Addended by: FLAKITA LAGOS on: 03/17/2023 11:44 AM Modules accepted: Orders [facility] Follow-Upon 03-17-2023 Follow-Up [id number] Tanika Grimm 1955 F Date Provider Department Center 03/17/2023 124-VIRGIL HAYNES TXP None No family history on file Level of Service:16357 ND OFFICE/OUTPATIENT ESTABLISHED LOW MDM 20 MIN Reason for Visit and Comments: Kidney Follow-up [] - Patient would like to know if Virgil would prescribe depression medication. [facility] 36on 01-31-2023 36 Transplant Pharmacis t - [...] need for taper. The patient's verbalized understanding. Heavy Line Technician added medication to med list. The patient's stated patient will be getting a DEXA scan and recommended to not have calcium 3 days before. Reviewed medication list for any products containing calcium - no medications found. No other questions or concerns at this time. Normal [facility] Telephoneon 01-31-2023 Telephone [id number] Tanika Grimm Harika 1955 F [facility] Provider Department Center [facility]23 [facility] No family history on file Reason for Visit and Comments: Transplant Pharmacist - Drug Information [[id number]] Normal [facility] BILIRUBIN CONJUGATED (DIRECT )on 08-12-2022 BILI, CONJUGATED 0.1 mg/dL Normal 0.0-0.2 [facility] Comment on above: Performed By: #### D DAVIDSON, MG, PHOS, CMP, LIPID, URIC #### [facility] [address] [address] [address] Sarmad Ptaino GLYCOHEMOGLOBIN A1Con 2022 ADA RECOMMENDATION SEE BELOW Normal [facility] Comment on above: Result Comment: ADA RECOMMENDED LIMIT 4.0 - 6.0 ADA THERAPEUTIC TARGET < 7.0 ACTION SUGGESTED > 7.0 Performed By: #### D DAVIDSON, MG, PHOS, CMP, LIPID, URIC #### [facility] [address] [address] [address] Sarmad Patino Glucose [Mass/Vol] 108 mg/dL Normal [facility] Comment on above: Performed By: #### D DAVIDSON, MG, PHOS, CMP, LIPID, URIC #### [facility] [address] [address] [address] Sarmad Patino HbA1c (Bld) [Mass fraction] 5.4 % Normal 4.5-6.2 [facility] Comment on above: Performed By: #### D DAVIDSON, MG, PHOS, CMP, LIPID, URIC #### [facility] [address] [place] [address] Dr. Sarmad Patino MAGNESIUMon 08-12-2022 Magnesium [Mass/Vol] 1.7 mg/dL Critically low 1.8-2.4 [facility] Comment on above: Performed By: #### D DAVIDSON, MG, PHOS, CMP, LIPID, URIC #### [facility] [address] [place] [address] Dr. Sarmad Patino PHOSPHORUSon 08-12-2022 Phosphate [Mass/Vol] 3.9 mg/dL Normal 2.6-4.7 [facility] Comment on above: Performed By: #### U MAXI, LIPID, MG, CMP, DBIL, PHOS #### [facility] [address] [place] [address] Dr. Sarmad Patino PROF 14(COMP METB)on 023 Albumin [Mass/Vol] 3.9 g/dL Normal 3.4-5.0 [facility] Comment on above: Performed By: #### D DAVIDSON, MG, PHOS, CMP, LIPID, URIC #### [facility] [address] [place] [address] Dr. Sarmad Patino Albumin/Globulin [Mass ratio] 1.2 {ratio} Normal [facility] Comment on above: Performed By: #### D DAVIDSON, MG, PHOS, CMP, LIPID, URIC #### [facility] [address] [place] [address] Dr. Sarmad Patino ALP [Catalytic activity/Vol] 126 U/L Critically high 46-[address] [facility] Comment on above: Performed By: #### D DAVIDSON, MG, PHOS, CMP, LIPID, URIC #### [facility] [address] [place] [address] Dr. Sarmad Patino ALT [Catalytic activity/Vol] 18 U/L Normal 14-[address] [facility] Comment on above: Performed By: #### D DAVIDSON, MG, PHOS, CMP, LIPID, URIC #### [facility] [address] [address] [address] Sarmad Patino Anion gap [Moles/Vol] 10.4 mmol/L Normal [facility] Comment on above: Performed By: #### D DAVIDSON, MG, PHOS, CMP, LIPID, URIC #### [facility] [address] [address] [address] Sarmad Patino AST [Catalytic activity/Vol] 14 U/L Critically low 15-37 [facility] Comment on above: Performed By: #### D DAVIDSON, MG, PHOS, CMP, LIPID, URIC #### [facility] [address] [place] [address] Dr. Sarmad Patino Bilirubin [Mass/Vol] 0.7 mg/dL Normal 0.2-1.0 [facility] Comment on above: Performed By: #### D DAVIDSON, MG, PHOS, CMP, LIPID, URIC #### [facility] [address] [place] [address] Dr. Sarmad Patino Calcium [Mass/Vol] 9.8 mg/dL Normal 8.5-10.1 [facility] Comment on above: Performed By: #### D DAVIDSON, MG, PHOS, CMP, LIPID, URIC #### [facility] [address] [place] [address] Dr. Sarmad Patino Chloride [Moles/Vol] 106 mmol/L Normal 98-107 [facility] Comment on above: Performed By: #### D DAVIDSON, MG, PHOS, CMP, LIPID, URIC #### [facility] [address] [place] [address] Dr. Sarmad Patino CO2 [Moles/Vol] 32.1 mmol/L Critically high 21.0-32.0 [facility] Comment on above: Performed By: #### D DAVIDSON, MG, PHOS, CMP, LIPID, URIC #### [facility] [address] [place] [address] Dr. Sarmad Patino Creatinine [Mass/Vol] 0.92 mg/dL Normal 0.55-1.02 [facility] Comment on above: Performed By: #### D DAVIDSON, MG, PHOS, CMP, LIPID, URIC #### [facility] [address] [address] [address] Sarmad Patino EGFR-AF EAST [place] >60 Normal >=60 [facility] Comment on above: Performed By: #### D DAVIDSON, MG, PHOS, CMP, LIPID, URIC #### [facility] [address] [address] [address] Sarmad Patino EGFR-NON AF EAST [place] >60 Normal >=60 [facility] Comment on above: Performed By: #### D DAVIDSON, MG, PHOS, CMP, LIPID, URIC #### [facility] [address] [address] [address] Sarmad Patino Globulin (S) [Mass/Vol] 3.3 g/dL Normal [facility] Comment on above: Performed By: #### D DAVIDSON, MG, PHOS, CMP, LIPID, URIC #### [facility] [address] [address] [address] Sarmad Patino Glucose [Mass/Vol] 102 mg/dL Normal 74-106 [facility] Comment on above: Performed By: #### D DAVIDSON, MG, PHOS, CMP, LIPID, URIC #### [facility] [address] [address] [address] Sarmad Patino Potassium [Moles/Vol] 4.5 mmol/L Normal 3.5-5.[address] [facility] Comment on above: Performed By: #### D DAVIDSON, MG, PHOS, CMP, LIPID, URIC #### [facility] [address] [address] [address] Sarmad Patino Protein [Mass/Vol] 7.2 g/dL Normal 6.4-8.2 [facility] Comment on above: Performed By: #### D DAVIDSON, MG, PHOS, CMP, LIPID, URIC #### [facility] [address] [address] [address] Sarmad Patino Sodium [Moles/Vol] 144 mmol/L Normal 136-145 [facility] Comment on above: Performed By: #### D DAVIDSON, MG, PHOS, CMP, LIPID, URIC #### [facility] [address] [address] [address] Sarmad Patino Urea nitrogen [Mass/Vol] 20.0 mg/dL Critically high 7.0-18.0 [facility] Comment on above: Performed By: #### D DAVIDSON, MG, PHOS, CMP, LIPID, URIC #### [facility] [address] [address] [address] Sarmad Patino Urea nitrogen/Creatinine [Mass ratio] 21.7 mg/mg Normal [facility] Comment on above: Performed By: #### D DAVIDSON, MG, PHOS, CMP, LIPID, URIC #### [facility] [address] [address] [address] Sarmad Patino URIC ACID SERUMon 08-12-2022 Urate [Mass/Vol] 5.2 mg/dL Normal 2.6-6.0 [facility] Comment on above: Performed By: #### D DAVIDSON, MG, PHOS, CMP, LIPID, URIC #### [facility] [address] [address] [address] Sarmad Patino MG MAMM SCREEN 3D DAVIDSON CADon 07-23-2022 MG MAMM SCREEN 3D DAVIDSON CAD Patient: TANIKA GRIMM Exam Date: 07/23/2022 : 1955 Gender:F Ordering : DR RAMON CARROLL M.D. Admission #: [id number] Family : Order #: [id number] CLICK HERE TO VIEW EXAM RADIOLOGY REPORT [...] Treatments None Family Cancers None LOCATION: [facility] BREAST COMPOSITION: Extremely dense, which lowers [...] M.D. on 07/23/2022 at 16:[address] [facility] FK506 (TACROLIMUS) WHOLE BLO ODon 07-10-2022 Tacrolimus (FK506), Blood 3.8 ng/mL Normal 2.0-20.0 [facility] Comment on above: Result Comment: Trou gh (immediately following transplant) 15.0 . Trough (steady state, 2 weeks or more after transplant): 3.0 - 8.0 . Performed by LC-MS/MS technology. Performed By: #### D DAVIDSON, MG, PHOS, CMP, LIPID, URIC #### [facility] [address] [place] [address] Dr. Sarmad Patino BILIRUBIN CONJUGATED (DIRECT )on 07-08-2022 BILI, CONJUGATED 0.1 mg/dL Normal 0.0-0.2 [facility] Comment on above: Performed By: #### U MAXI, LIPID, MG, CMP, DBIL, PHOS #### [facility] [address] [address] [address] Sarmda Patino GLYCOHEMOGLOBIN A1Con 2022 ADA RECOMMENDATION SEE BELOW Normal [facility] Comment on above: Result Comment: ADA RECOMMENDED LIMIT 4.0 - 6.0 ADA THERAPEUTIC TARGET < 7.0 ACTION SUGGESTED > 7.0 Performed By: #### D DAVIDSON, MG, PHOS, CMP, LIPID, URIC #### [facility] [address] [address] [address] Sarmad Patino Glucose [Mass/Vol] 105 mg/dL Normal [facility] Comment on above: Performed By: #### D DAVIDSON, MG, PHOS, CMP, LIPID, URIC #### [facility] [address] [address] [address] Sarmad Patino HbA1c (Bld) [Mass fraction] 5.3 % Normal 4.5-6.2 [facility] Comment on above: Performed By: #### D DAVIDSON, MG, PHOS, CMP, LIPID, URIC #### [facility] [address] [place] [address] Dr. Sarmad Patino MAGNESIUMon 07-08-2022 Magnesium [Mass/Vol] 1.8 mg/dL Normal 1.8-2.4 [facility] Comment on above: Performed By: #### U MAXI, LIPID, MG, CMP, DBIL, PHOS #### [facility] [address] [place] [address] Dr. Sarmad Patino PHOSPHORUSon 07-08-2022 Phosphate [Mass/Vol] 3.8 mg/dL Normal 2.6-4.7 [facility] Comment on above: Performed By: #### U MAXI, LIPID, MG, CMP, DBIL, PHOS #### [facility] [address] [place] [address] Dr. Sarmad Patino PROF 14(COMP METB)on 023 Albumin [Mass/Vol] 3.7 g/dL Normal 3.4-5.0 [facility] Comment on above: Performed By: #### U MAXI, LIPID, MG, CMP, DBIL, PHOS #### [facility] [address] [place] [address] Dr. Sarmad Patino Albumin/Globulin [Mass ratio] 1.1 {ratio} Normal [facility] Comment on above: Performed By: #### U MAXI, LIPID, MG, CMP, DBIL, PHOS #### [facility] [address] [place] [address] Dr. Sarmad Patino ALP [Catalytic activity/Vol] 124 U/L Critically high 46-[address] [facility] Comment on above: Performed By: #### U MAXI, LIPID, MG, CMP, DBIL, PHOS #### [facility] [address] [place] [address] Dr. Sarmad Patino ALT [Catalytic activity/Vol] 20 U/L Normal 14-[address] [facility] Comment on above: Performed By: #### U MAXI, LIPID, MG, CMP, DBIL, PHOS #### [facility] [address] [address] [address] Sarmad Patino Anion gap [Moles/Vol] 11.5 mmol/L Normal [facility] Comment on above: Performed By: #### U MAXI, LIPID, MG, CMP, DBIL, PHOS #### [facility] [address] [address] [address] Sarmad Patino AST [Catalytic activity/Vol] 12 U/L Critically low 15-37 [facility] Comment on above: Performed By: #### U MAXI, LIPID, MG, CMP, DBIL, PHOS #### [facility] [address] [address] [address] Sarmad Patino Bilirubin [Mass/Vol] 0.5 mg/dL Normal 0.2-1.0 [facility] Comment on above: Performed By: #### U MAXI, LIPID, MG, CMP, DBIL, PHOS #### [facility] [address] [place] [address] Dr. Sarmad Patino Calcium [Mass/Vol] 9.6 mg/dL Normal 8.5-10.1 [facility] Comment on above: Performed By: #### U MAXI, LIPID, MG, CMP, DBIL, PHOS #### [facility] [address] [place] [address] Dr. Sarmad Patino Chloride [Moles/Vol] 106 mmol/L Normal 98-107 [facility] Comment on above: Performed By: #### U MAXI, LIPID, MG, CMP, DBIL, PHOS #### [facility] [address] [address] [address] Sarmad Patino CO2 [Moles/Vol] 29.7 mmol/L Normal 21.0-32.0 [facility] Comment on above: Performed By: #### U MAXI, LIPID, MG, CMP, DBIL, PHOS #### [facility] [address] [place] [address] Dr. Sarmad Patino Creatinine [Mass/Vol] 0.77 mg/dL Normal 0.55-1.02 [facility] Comment on above: Performed By: #### U MAXI, LIPID, MG, CMP, DBIL, PHOS #### [facility] [address] [address] [address] Sarmad Patino EGFR-AF [place] >60 Normal >=60 [facility] Comment on above: Performed By: #### U MAXI, LIPID, MG, CMP, DBIL, PHOS #### [facility] [address] [address] [address] Sarmad Patino EGFR-NON AF [place] >60 Normal >=60 [facility] Comment on above: Performed By: #### U MAXI, LIPID, MG, CMP, DBIL, PHOS #### [facility] [address] [place] [address] Dr. Sarmad Patino Globulin (S) [Mass/Vol] 3.4 g/dL Normal [facility] Comment on above: Performed By: #### U MAXI, LIPID, MG, CMP, DBIL, PHOS #### [facility] [address] [address] [address] Sarmad Patino Glucose [Mass/Vol] 97 mg/dL Normal 74-106 [facility] Comment on above: Performed By: #### U MAXI, LIPID, MG, CMP, DBIL, PHOS #### [facility] [address] [place] [address] Dr. Sarmad Patino Potassium [Moles/Vol] 4.2 mmol/L Normal 3.5-5.[address] [facility] Comment on above: Performed By: #### U MAXI, LIPID, MG, CMP, DBIL, PHOS #### [facility] [address] [address] [address] Sarmad Patino Protein [Mass/Vol] 7.1 g/dL Normal 6.4-8.2 [facility] Comment on above: Performed By: #### U MAXI, LIPID, MG, CMP, DBIL, PHOS #### [facility] [address] [address] [address] Sarmad Patino Sodium [Moles/Vol] 143 mmol/L Normal 136-145 [facility] Comment on above: Performed By: #### U MAXI, LIPID, MG, CMP, DBIL, PHOS #### [facility] [address] [place] [address] Dr. Sarmad Patino Urea nitrogen [Mass/Vol] 26.0 mg/dL Critically high 7.0-18.0 [facility] Comment on above: Performed By: #### U MAXI, LIPID, MG, CMP, DBIL, PHOS #### [facility] [address] [place] [address] Dr. Sarmad Patino Urea nitrogen/Creatinine [Mass ratio] 33.8 mg/mg Normal [facility] Comment on above: Performed By: #### U MAXI, LIPID, MG, CMP, DBIL, PHOS #### [facility] [address] [place] [address] Dr. Sarmad Patino URIC ACID SERUMon 07-08-2022 Urate [Mass/Vol] 4.7 mg/dL Normal 2.6-6.0 [facility] Comment on above: Performed By: #### U MAXI, LIPID, MG, CMP, DBIL, PHOS #### [facility] [address] [place] [address] Dr. Sarmad Patino FK506 (TACROLIMUS) WHOLE BLO ODon 06-13-2022 Tacrolimus (FK506), Blood 3.0 ng/mL Normal 2.0-20.0 [facility] Comment on above: Result Comment: Trou gh (immediately following transplant) 15.0 . Trough (steady state, 2 weeks or more after transplant): 3.0 - 8.0 . Performed by LC-MS/MS technology. Performed By: #### D DAVIDSON, MG, PHOS, CMP, LIPID, URIC #### [facility] [address] [place] [address] Dr. Sarmad Patino BK VIRUS PCR QUANTon 023 BKV DNA QUANT PCR PLASMA Negative Normal Negative [facility] Comment on above: Result Comment: No B K DNA detected. . The linear range of the assay is 22 - 100,000,000 IU/mL. Performed By: #### B KVIRUS #### [facility] [address] [place] [address] Dr. Sarmad Patino Log10 BKV DNA Plasma Normal [facility] Comment on above: Performed By: #### B KVIRUS #### [facility] [address] [address] [address] Sarmad Patino BILIRUBIN CONJUGATED (DIRECT )on 06-10-2022 BILI, CONJUGATED 0.1 mg/dL Normal 0.0-0.2 [facility] Comment on above: Performed By: #### U MAXI, LIPID, MG, CMP, DBIL, PHOS #### [facility] [address] [address] [address] Sarmad Patino GLYCOHEMOGLOBIN A1Con 2022 ADA RECOMMENDATION SEE BELOW Normal [facility] Comment on above: Result Comment: ADA RECOMMENDED LIMIT 4.0 - 6.0 ADA THERAPEUTIC TARGET < 7.0 ACTION SUGGESTED > 7.0 Performed By: #### D DAVIDSON, MG, PHOS, CMP, LIPID, URIC #### [facility] [address] [place] [address] Dr. Sarmad Patino Glucose [Mass/Vol] 114 mg/dL Normal [facility] Comment on above: Performed By: #### D DAVIDSON, MG, PHOS, CMP, LIPID, URIC #### [facility] [address] [place] [address] Dr. Sarmad Patino HbA1c (Bld) [Mass fraction] 5.6 % Normal 4.5-6.[address] [facility] Comment on above: Performed By: #### D DAVIDSON, MG, PHOS, CMP, LIPID, URIC #### [facility] [address] [place] [address] Dr. Sarmad Patino MAGNESIUMon 06-10-2022 Magnesium [Mass/Vol] 1.6 mg/dL Critically low 1.8-2.4 [facility] Comment on above: Performed By: #### U MAXI, LIPID, MG, CMP, DBIL, PHOS #### [facility] [address] [place] [address] Dr. Sarmad Patino PROF 14(COMP METB)on 023 Albumin [Mass/Vol] 3.7 g/dL Normal 3.4-5.0 [facility] Comment on above: Performed By: #### U MAXI, LIPID, MG, CMP, DBIL, PHOS #### [facility] [address] [address] [address] Sarmad Patino Albumin/Globulin [Mass ratio] 1.1 {ratio} Normal [facility] Comment on above: Performed By: #### U MAXI, LIPID, MG, CMP, DBIL, PHOS #### [facility] [address] [address] [address] Sarmad Patino ALP [Catalytic activity/Vol] 142 U/L Critically high 46-116 [facility] Comment on above: Performed By: #### U MAXI, LIPID, MG, CMP, DBIL, PHOS #### [facility] [address] [place] [address] Dr. Sarmad Patino ALT [Catalytic activity/Vol] 29 U/L Normal 14-59 [facility] Comment on above: Performed By: #### U MAXI, LIPID, MG, CMP, DBIL, PHOS #### [facility] [address] [place] [address] Dr. Sarmad Patino Anion gap [Moles/Vol] 11.1 mmol/L Normal [facility] Comment on above: Performed By: #### U MAXI, LIPID, MG, CMP, DBIL, PHOS #### [facility] [address] [place] [address] Dr. Sarmad Patino AST [Catalytic activity/Vol] 19 U/L Normal 15-37 [facility] Comment on above: Performed By: #### U MAXI, LIPID, MG, CMP, DBIL, PHOS #### [facility] [address] [place] [address] Dr. Sarmad Patino Bilirubin [Mass/Vol] 0.6 mg/dL Normal 0.2-1.0 [facility] Comment on above: Performed By: #### U MAXI, LIPID, MG, CMP, DBIL, PHOS #### [facility] [address] [place] [address] Dr. Sarmad Patino Calcium [Mass/Vol] 9.8 mg/dL Normal 8.5-10.1 [facility] Comment on above: Performed By: #### U MAXI, LIPID, MG, CMP, DBIL, PHOS #### [facility] [address] [address] [address] Sarmad Patino Chloride [Moles/Vol] 103 mmol/L Normal 98-[address] [facility] Comment on above: Performed By: #### U MAXI, LIPID, MG, CMP, DBIL, PHOS #### [facility] [address] [address] [address] Sarmad Patino CO2 [Moles/Vol] 30.7 mmol/L Normal 21.0-32.0 [facility] Comment on above: Performed By: #### U MAXI, LIPID, MG, CMP, DBIL, PHOS #### [facility] [address] [address] [address] Sarmad Patino Creatinine [Mass/Vol] 0.79 mg/dL Normal 0.55-1.02 [facility] Comment on above: Performed By: #### U MAXI, LIPID, MG, CMP, DBIL, PHOS #### [facility] [address] [address] [address] Sarmad Patino EGFR-AF EAST [place]ORESE >60 Normal >=60 [facility] Comment on above: Performed By: #### U MAXI, LIPID, MG, CMP, DBIL, PHOS #### [facility] [address] [address] [address] Sarmad Patino EGFR-NON AF EAST [place] >60 Normal >=[address] [facility] Comment on above: Performed By: #### U MAXI, LIPID, MG, CMP, DBIL, PHOS #### [facility] [address] [address] [address] Sarmad Patino Globulin (S) [Mass/Vol] 3.4 g/dL Normal [facility] Comment on above: Performed By: #### U MAXI, LIPID, MG, CMP, DBIL, PHOS #### [facility] [address] [address] [address] Sarmad Patino Glucose [Mass/Vol] 94 mg/dL Normal 74-106 [facility] Comment on above: Performed By: #### U MAXI, LIPID, MG, CMP, DBIL, PHOS #### [facility] [address] [place] [address] Dr. Sarmad Patino Potassium [Moles/Vol] 3.8 mmol/L Normal 3.5-5.1 [facility] Comment on above: Performed By: #### U MAXI, LIPID, MG, CMP, DBIL, PHOS #### [facility] [address] [place] [address] Dr. Sarmad Patino Protein [Mass/Vol] 7.1 g/dL Normal 6.4-8.2 [facility] Comment on above: Performed By: #### U MAXI, LIPID, MG, CMP, DBIL, PHOS #### [facility] [address] [place] [address] Dr. Sarmad Patino Sodium [Moles/Vol] 141 mmol/L Normal 136-145 [facility] Comment on above: Performed By: #### U MAXI, LIPID, MG, CMP, DBIL, PHOS #### [facility] [address] [place] [address] Dr. Sarmad Patino Urea nitrogen [Mass/Vol] 17.0 mg/dL Normal 7.0-18.[address] [facility] Comment on above: Performed By: #### U MAXI, LIPID, MG, CMP, DBIL, PHOS #### [facility] [address] [place] [address] Dr. Sarmad Patino Urea nitrogen/Creatinine [Mass ratio] 21.5 mg/mg Normal [facility] Comment on above: Performed By: #### U MAXI, LIPID, MG, CMP, DBIL, PHOS #### [facility] [address] [place] [address] Dr. Sarmad Patino URIC ACID SERUMon 06-10-2022 Urate [Mass/Vol] 5.1 mg/dL Normal 2.6-6.0 [facility] Comment on above: Performed By: #### U MAXI, LIPID, MG, CMP, DBIL, PHOS #### [facility] [address] [place] [address] Dr. Sarmad Patino BK VIRUS PCR QUANTon 023 BKV DNA QUANT PCR PLASMA Negative Normal Negative [facility] Comment on above: Result Comment: No B K DNA detected. . The linear range of the assay is 22 - 100,000,000 IU/mL. Performed By: #### U MAXI, LIPID, MG, CMP, DBIL, PHOS #### [facility] [address] [place] [address] Dr. Sarmad Patino Log10 BKV DNA Plasma Normal [facility] Comment on above: Performed By: #### U MAXI, LIPID, MG, CMP, DBIL, PHOS #### [facility] [address] [address] [address] Sarmad Patino FK506 (TACROLIMUS) WHOLE BLO ODon 05-13-2022 Tacrolimus (FK506), Blood 4.1 ng/mL Normal 2.0-20.0 [facility] Comment on above: Result Comment: Trou gh (immediately following transplant) 15.0 . Trough (steady state, 2 weeks or more after transplant): 3.0 - 8.0 . Performed by LC-MS/MS technology. Performed By: #### U MAXI, LIPID, MG, CMP, DBIL, PHOS #### [facility] [address] [address] [address] Sarmad Patino BILIRUBIN CONJUGATED (DIRECT )on 05-10-2022 BILI, CONJUGATED 0.1 mg/dL Normal 0.0-0.2 [facility] Comment on above: Performed By: #### D DAVIDSON, MG, PHOS, CMP, LIPID, URIC #### [facility] [address] [address] [address] Sarmad Patino GLYCOHEMOGLOBIN A1Con 2022 ADA RECOMMENDATION SEE BELOW Normal [facility] Comment on above: Result Comment: ADA RECOMMENDED LIMIT 4.0 - 6.0 ADA THERAPEUTIC TARGET < 7.0 ACTION SUGGESTED > 7.0 Performed By: #### D DAVIDSON, MG, PHOS, CMP, LIPID, URIC #### [facility] [address] [place] [address] Dr. Sarmad Patino Glucose [Mass/Vol] 108 mg/dL Normal [facility] Comment on above: Performed By: #### D DAVIDSON, MG, PHOS, CMP, LIPID, URIC #### [facility] [address] [address] [address] Sarmad Patino HbA1c (Bld) [Mass fraction] 5.4 % Normal 4.5-6.2 [facility] Comment on above: Performed By: #### D DAVIDSON, MG, PHOS, CMP, LIPID, URIC #### [facility] [address] [place] [address] Dr. Sarmad Patino MAGNESIUMon 05-10-2022 Magnesium [Mass/Vol] 1.9 mg/dL Normal 1.8-2.4 [facility] Comment on above: Performed By: #### U MAXI, LIPID, MG, CMP, DBIL, PHOS #### [facility] [address] [place] [address] Dr. Sarmad Patino PROF 14(COMP METB)on 023 Albumin [Mass/Vol] 3.9 g/dL Normal 3.4-5.0 [facility] Comment on above: Performed By: #### D DAVIDSON, MG, PHOS, CMP, LIPID, URIC #### [facility] [address] [place] [address] Dr. Sarmad Patino Albumin/Globulin [Mass ratio] 1.2 {ratio} Normal [facility] Comment on above: Performed By: #### D DAVIDSON, MG, PHOS, CMP, LIPID, URIC #### [facility] [address] [address] [address] Sarmad Patino ALP [Catalytic activity/Vol] 114 U/L Normal 46-116 [facility] Comment on above: Performed By: #### D DAVIDSON, MG, PHOS, CMP, LIPID, URIC #### [facility] [address] [place] [address] Dr. Sarmad Patino ALT [Catalytic activity/Vol] 18 U/L Normal 14-59 [facility] Comment on above: Performed By: #### D DAVIDSON, MG, PHOS, CMP, LIPID, URIC #### [facility] [address] [place] [address] Dr. Sarmad Patino Anion gap [Moles/Vol] 15.9 mmol/L Normal [facility] Comment on above: Performed By: #### D DAVIDSON, MG, PHOS, CMP, LIPID, URIC #### [facility] [address] [address] [address] Sarmad Patino AST [Catalytic activity/Vol] 17 U/L Normal 15-37 [facility] Comment on above: Performed By: #### D DAVIDSON, MG, PHOS, CMP, LIPID, URIC #### [facility] [address] [address] [address] Sarmad Patino Bilirubin [Mass/Vol] 0.4 mg/dL Normal 0.2-1.0 [facility] Comment on above: Performed By: #### D DAVIDSON, MG, PHOS, CMP, LIPID, URIC #### [facility] [address] [place] [address] Dr. Sarmad Patino Calcium [Mass/Vol] 9.8 mg/dL Normal 8.5-10.1 [facility] Comment on above: Performed By: #### D DAVIDSON, MG, PHOS, CMP, LIPID, URIC #### [facility] [address] [address] [address] Sarmad Patino Chloride [Moles/Vol] 103 mmol/L Normal 98-107 [facility] Comment on above: Performed By: #### D DAVIDSON, MG, PHOS, CMP, LIPID, URIC #### [facility] [address] [address] [address] Sarmad Patino CO2 [Moles/Vol] 29.2 mmol/L Normal 21.0-32.0 [facility] Comment on above: Performed By: #### D DAVIDSON, MG, PHOS, CMP, LIPID, URIC #### [facility] [address] [address] [address] Sarmad Patino Creatinine [Mass/Vol] 0.74 mg/dL Normal 0.55-1.02 [facility] Comment on above: Performed By: #### D DAVIDSON, MG, PHOS, CMP, LIPID, URIC #### [facility] [address] [address] [address] Sarmad Patino EGFR-AF [place] >60 Normal >=60 [facility] Comment on above: Performed By: #### D DAVIDSON, MG, PHOS, CMP, LIPID, URIC #### [facility] [address] [address] [address] Sarmad Patino EGFR-NON AF [place] >60 Normal >=60 [facility] Comment on above: Performed By: #### D DAVIDSON, MG, PHOS, CMP, LIPID, URIC #### [facility] [address] [address] [address] Sarmad Patino Globulin (S) [Mass/Vol] 3.2 g/dL Normal [facility] Comment on above: Performed By: #### D DAVIDSON, MG, PHOS, CMP, LIPID, URIC #### [facility] [address] [address] [address] Sarmad Patino Glucose [Mass/Vol] 94 mg/dL Normal 74-106 [facility] Comment on above: Performed By: #### D DAVIDSON, MG, PHOS, CMP, LIPID, URIC #### [facility] [address] [address] [address] Sarmad Patino Potassium [Moles/Vol] 4.1 mmol/L Normal 3.5-5.[address] [facility] Comment on above: Performed By: #### D DAVIDSON, MG, PHOS, CMP, LIPID, URIC #### [facility] [address] [address] [address] Sarmad Patino Protein [Mass/Vol] 7.1 g/dL Normal 6.4-8.2 [facility] Comment on above: Performed By: #### D DAVIDSON, MG, PHOS, CMP, LIPID, URIC #### [facility] [address] [address] [address] Sarmad Patino Sodium [Moles/Vol] 144 mmol/L Normal 136-145 [facility] Comment on above: Performed By: #### D DAVIDSON, MG, PHOS, CMP, LIPID, URIC #### [facility] [address] [address] [address] Sarmad Patino Urea nitrogen [Mass/Vol] 18.0 mg/dL Normal 7.0-18.0 [facility] Comment on above: Performed By: #### D DAVIDSON, MG, PHOS, CMP, LIPID, URIC #### [facility] [address] [address] [address] Sarmad Patino Urea nitrogen/Creatinine [Mass ratio] 24.3 mg/mg Normal [facility] Comment on above: Performed By: #### D DAVIDSON, MG, PHOS, CMP, LIPID, URIC #### [facility] [address] [address] [address] Sarmad Patino URIC ACID SERUMon 05-10-2022 Urate [Mass/Vol] 5.1 mg/dL Normal 2.6-6.0 [facility] Comment on above: Performed By: #### U MAXI, LIPID, MG, CMP, DBIL, PHOS #### [facility] [address] [place] [address] Dr. Sarmad Patino MYCOPHENOLIC ACIDon 04-17-19 Mycophenolic Acid 1.2 ug/mL Normal 1.0-3.5 [facility] Comment on above: Performed By: #### D DAVIDSON, MG, PHOS, CMP, LIPID, URIC #### [facility] [address] [place] [address] Dr. Sarmad Patino Mycophenolic Acid Glucuronide 37 ug/mL Normal 15-125 [facility] Comment on above: Result Comment: [facility] 's Reference Range: 35-100 mcg/mL. Performed By: #### D DAVIDSON, MG, PHOS, CMP, LIPID, URIC #### [facility] [address] [place] [address] Dr. Sarmad Patino FK506 (TACROLIMUS) WHOLE BLO ODon 04-10-2022 Tacrolimus (FK506), Blood 4.2 ng/mL Normal 2.0-20.0 [facility] Comment on above: Result Comment: Trou gh (immediately following transplant) 15.0 . Trough (steady state, 2 weeks or more after transplant): 3.0 - 8.0 . Performed by LC-MS/MS technology. Performed By: #### D DAVIDSON, MG, PHOS, CMP, LIPID, URIC #### [facility] [address] [address] [address] Sarmad Patino BILIRUBIN CONJUGATED (DIRECT )on 04-08-2022 BILI, CONJUGATED 0.1 mg/dL Normal 0.0-0.2 [facility] Comment on above: Performed By: #### U MAXI, LIPID, MG, CMP, DBIL, PHOS #### [facility] [address] [address] [address] Sarmad Patino CBC AUTO DIFFon 04-08-2022 BASO # 0.0 103/ul Normal 0.0-0.[address] [facility] Comment on above: Performed By: #### D DAVIDSON, MG, PHOS, CMP, LIPID, URIC #### [facility] [address] [place] [address] Dr. Sarmad Patino Basophils/100 WBC (Bld) 0.3 % Normal 0.2-2.[address] [facility] Comment on above: Performed By: #### D DAVIDSON, MG, PHOS, CMP, LIPID, URIC #### [facility] [address] [place] [address] Dr. Sarmad Patino EO # 0.1 103/ul Normal 0.0-0.[address] [facility] Comment on above: Performed By: #### D DAVIDSON, MG, PHOS, CMP, LIPID, URIC #### [facility] [address] [place] [address] Dr. Sarmad Patino Eosinophils/100 WBC (Bld) 1.4 % Normal 0.9-7.[address] [facility] Comment on above: Performed By: #### D DAVIDSON, MG, PHOS, CMP, LIPID, URIC #### [facility] [address] [place] [address] Dr. Sarmad Patino Erythrocyte distribution width (RBC) [Ratio] 15.8 % Critically high 11.0-15.[address] [facility] Comment on above: Performed By: #### D DAVIDSON, MG, PHOS, CMP, LIPID, URIC #### [facility] [address] [place] [address] Dr. Sarmad Patino Hematocrit (Bld) [Volume fraction] 43.0 % Normal 36.0-48.[address] [facility] Comment on above: Performed By: #### D DAVIDSON, MG, PHOS, CMP, LIPID, URIC #### [facility] [address] [place] [address] Dr. Sarmad Patino Hemoglobin (Bld) [Mass/Vol] 15.0 g/dL Normal 12.0-16.[address] [facility] Comment on above: Performed By: #### D DAVIDSON, MG, PHOS, CMP, LIPID, URIC #### [facility] [address] [address] [address] Sarmad Patino IG # 0.01 10e3/ul Normal 0.00-0.[address] [facility] Comment on above: Performed By: #### D DAVIDSON, MG, PHOS, CMP, LIPID, URIC #### [facility] [address] [place] [address] Dr. Sarmad Patino IG % 0.1 % Normal 0.0-0.[address] [facility] Comment on above: Performed By: #### D DAVIDSON, MG, PHOS, CMP, LIPID, URIC #### [facility] [address] [place] [address] Dr. Sarmad Patino LYMPH # 1.3 103/ul Normal 1.2-3.[address] [facility] Comment on above: Performed By: #### D DAVIDSON, MG, PHOS, CMP, LIPID, URIC #### [facility] [address] [place] [address] Dr. Sarmad Patino Lymphocytes/100 WBC (Bld) 18.3 % Critically low 20.5-60.[address] [facility] Comment on above: Performed By: #### D DAVIDSON, MG, PHOS, CMP, LIPID, URIC #### [facility] [address] [place] [address] Dr. Sarmad Patino MANUAL DIFF REQ NO Normal [facility] Comment on above: Performed By: #### D DAVIDSON, MG, PHOS, CMP, LIPID, URIC #### [facility] [address] [place] [address] Dr. Sarmad Patino MCH (RBC) [Entitic mass] 29.7 pg Normal 26.7-34.0 [facility] Comment on above: Performed By: #### D DAVIDSON, MG, PHOS, CMP, LIPID, URIC #### [facility] [address] [place] [address] Dr. Sarmad Patino MCHC (RBC) [Mass/Vol] 34.9 g/dL Normal 29.9-35.[address] [facility] Comment on above: Performed By: #### D DAVIDSON, MG, PHOS, CMP, LIPID, URIC #### [facility] [address] [place] [address] Dr. Sarmad Patino MCV (RBC) [Entitic vol] 85.1 fL Normal 81.0-99.[address] [facility] Comment on above: Performed By: #### D DAVIDSON, MG, PHOS, CMP, LIPID, URIC #### [facility] [address] [place] [address] Dr. Sarmad Patino MONO # 0.7 103/ul Normal 0.3-0.[address] [facility] Comment on above: Performed By: #### D DAVIDSON, MG, PHOS, CMP, LIPID, URIC #### [facility] [address] [place] [address] Dr. Sarmad Patino Monocytes/100 WBC (Bld) 9.8 % Normal 1.7-12.[address] [facility] Comment on above: Performed By: #### D DAVIDSON, MG, PHOS, CMP, LIPID, URIC #### [facility] [address] [place] [address] Dr. Sarmad Patino NEUT # 5.1 103/ul Normal 1.4-6.[address] [facility] Comment on above: Performed By: #### D DAVIDSON, MG, PHOS, CMP, LIPID, URIC #### [facility] [address] [place] [address] Dr. Sarmad Patino Neutrophils/100 WBC (Bld) 70.1 % Normal 43.0-75.[address] [facility] Comment on above: Performed By: #### D DAVIDSON, MG, PHOS, CMP, LIPID, URIC #### [facility] [address] [place] [address] Dr. Sarmad Patino Platelet mean volume (Bld) [Entitic vol] 10.4 fL Normal 9.5-13.5 [facility] Comment on above: Performed By: #### D DAVIDSON, MG, PHOS, CMP, LIPID, URIC #### [facility] [address] [address] [address] Sarmad Patino PLT 229 103/ul Normal 150-450 [facility] Comment on above: Performed By: #### D DAVIDSON, MG, PHOS, CMP, LIPID, URIC #### [facility] [address] [address] [address] Sarmad Patino RBC 5.05 106/ul Normal 4.20-5.40 [facility] Comment on above: Performed By: #### D DAVIDSON, MG, PHOS, CMP, LIPID, URIC #### [facility] [address] [place] [address] Dr. Sarmad Patino WBC 7.2 103/ul Normal 4.0-11.0 [facility] Comment on above: Performed By: #### D DAVIDSON, MG, PHOS, CMP, LIPID, URIC #### [facility] [address] [place] [address] Dr. Sarmad Patino LIPID PROFILEon 04-08-2022 CHOL-HDL RATIO NORM SEE BELOW Normal [facility] Comment on above: Result Comment: 3.3 - 4.4 LOW RISK 4.4 - 7.1 AVERAGE RISK 7.1 - 11.0 MODERATE RISK >11.0 HIGH RISK Performed By: #### U MAXI, LIPID, MG, CMP, DBIL, PHOS #### [facility] [address] [address] [address] Sarmad Patino Cholesterol [Mass/Vol] 134 mg/dL Normal <=[address] [facility] Comment on above: Performed By: #### U MAXI, LIPID, MG, CMP, DBIL, PHOS #### [facility] [address] [address] [address] Sarmad Patino Cholesterol in HDL [Mass/Vol] 55 mg/dL Normal 40-60 [facility] Comment on above: Performed By: #### U MAXI, LIPID, MG, CMP, DBIL, PHOS #### [facility] [address] [address] [address] Sarmad Patino Cholesterol in LDL [Mass/Vol] 56.6 mg/dL Normal [facility] Comment on above: Performed By: #### U MAXI, LIPID, MG, CMP, DBIL, PHOS #### [facility] [address] [address] [address] Sarmad Patino Cholesterol.total/Cho lesterol in HDL [Mass ratio] 2.4 {ratio} Normal [facility] Comment on above: Performed By: #### U MAXI, LIPID, MG, CMP, DBIL, PHOS #### [facility] [address] [address] [address] Sarmad Patino HDL NORMAL > or = 60 mg/dl - LO W CARDIOVASCULAR RISK <40 mg/dl - HIGH CARDIOVASCULAR RISK Normal [facility] Comment on above: Performed By: #### U MAXI, LIPID, MG, CMP, DBIL, PHOS #### [facility] [address] [address] [address] Sarmad Patino LDL CALC NORMAL SEE BELOW Normal [facility] Comment on above: Result Comment: <100 mg/dl OPTIMAL 100 - 129 mg/dl NEAR OR ABOVE OPTIMAL 130 - 159 mg/dl BORDERLINE HIGH 160 - 189 mg/dl HIGH >190 mg/dl VERY HIGH Performed By: #### U MAXI, LIPID, MG, CMP, DBIL, PHOS #### [facility] [address] [address] [address] Sarmad Patino Triglyceride [Mass/Vol] 112 mg/dL Normal <=[address] [facility] Comment on above: Performed By: #### U MAXI, LIPID, MG, CMP, DBIL, PHOS #### [facility] [address] [address] [address] Sarmad Patino VLDL CALC 22.4 mg/dL Normal [facility] Comment on above: Performed By: #### U MAXI, LIPID, MG, CMP, DBIL, PHOS #### [facility] [address] [address] [address] Sarmad Patino MAGNESIUMon 04-08-2022 Magnesium [Mass/Vol] 1.8 mg/dL Normal 1.8-2.4 [facility] Comment on above: Performed By: #### U MAXI, LIPID, MG, CMP, DBIL, PHOS #### [facility] [address] [place] [address] Dr. Sarmad Patino PHOSPHORUSon 04-08-2022 Phosphate [Mass/Vol] 3.9 mg/dL Normal 2.6-4.7 [facility] Comment on above: Performed By: #### U MAXI, LIPID, MG, CMP, DBIL, PHOS #### [facility] [address] [place] [address] Dr. Sarmad Patino PROF 14(COMP METB)on 023 Albumin [Mass/Vol] 4.0 g/dL Normal 3.4-5.0 [facility] Comment on above: Performed By: #### U MAXI, LIPID, MG, CMP, DBIL, PHOS #### [facility] [address] [place] [address] Dr. Sarmad Patino Albumin/Globulin [Mass ratio] 1.3 {ratio} Normal [facility] Comment on above: Performed By: #### U MAXI, LIPID, MG, CMP, DBIL, PHOS #### [facility] [address] [place] [address] Dr. Sarmad Patino ALP [Catalytic activity/Vol] 108 U/L Normal 46-116 [facility] Comment on above: Performed By: #### U MAXI, LIPID, MG, CMP, DBIL, PHOS #### [facility] [address] [place] [address] Dr. Sarmad Patino ALT [Catalytic activity/Vol] 15 U/L Normal 14-59 [facility] Comment on above: Performed By: #### U MAXI, LIPID, MG, CMP, DBIL, PHOS #### [facility] [address] [place] [address] Dr. Sarmad Patino Anion gap [Moles/Vol] 14.3 mmol/L Normal [facility] Comment on above: Performed By: #### U MAXI, LIPID, MG, CMP, DBIL, PHOS #### [facility] [address] [place] [address] Dr. Sarmad Patino AST [Catalytic activity/Vol] 15 U/L Normal 15-37 [facility] [facility] Comment on above: Performed By: #### U MAXI, LIPID, MG, CMP, DBIL, PHOS #### [facility] [address] [place] [address] Dr. Sarmad Patino Bilirubin [Mass/Vol] 0.5 mg/dL Normal 0.2-1.0 [facility] Comment on above: Performed By: #### U MAXI, LIPID, MG, CMP, DBIL, PHOS #### [facility] [address] [place] [address] Dr. Sarmad Patino Calcium [Mass/Vol] 9.7 mg/dL Normal 8.5-10.1 [facility] Comment on above: Performed By: #### U MAXI, LIPID, MG, CMP, DBIL, PHOS #### [facility] [address] [place] [address] Dr. Sarmad Patino Chloride [Moles/Vol] 105 mmol/L Normal 98-[address] [facility] Comment on above: Performed By: #### U MAXI, LIPID, MG, CMP, DBIL, PHOS #### [facility] [address] [place] [address] Dr. Sarmad Patino CO2 [Moles/Vol] 26.6 mmol/L Normal 21.0-32.0 [facility] Comment on above: Performed By: #### U MAXI, LIPID, MG, CMP, DBIL, PHOS #### [facility] [address] [place] [address] Dr. Sarmad Patino Creatinine [Mass/Vol] 0.80 mg/dL Normal 0.55-1.02 [facility] Comment on above: Performed By: #### U MAXI, LIPID, MG, CMP, DBIL, PHOS #### [facility] [address] [place] [address] Dr. Sarmad Patino EGFR-AF [place]AST [place] >60 Normal >=60 [facility] Comment on above: Performed By: #### U MAXI, LIPID, MG, CMP, DBIL, PHOS #### [facility] [address] [place] [address] Dr. Sarmad Patino EGFR-NON AF [place] >60 Normal >=[address] [facility] Comment on above: Performed By: #### U MAXI, LIPID, MG, CMP, DBIL, PHOS #### [facility] [address] [place] [address] Dr. Sarmad Patino Globulin (S) [Mass/Vol] 3.0 g/dL Normal [facility] Comment on above: Performed By: #### U MAXI, LIPID, MG, CMP, DBIL, PHOS #### [facility] [address] [place] [address] Dr. Sarmad Patino Glucose [Mass/Vol] 99 mg/dL Normal 74-106 [facility] Comment on above: Performed By: #### U MAXI, LIPID, MG, CMP, DBIL, PHOS #### [facility] [address] [place] [address] Dr. Sarmad Patino Potassium [Moles/Vol] 3.9 mmol/L Normal 3.5-5.[address] [facility] Comment on above: Performed By: #### U MAXI, LIPID, MG, CMP, DBIL, PHOS #### [facility] [address] [place] [address] Dr. Sarmad Patino Protein [Mass/Vol] 7.0 g/dL Normal 6.4-8.2 [facility] Comment on above: Performed By: #### U MAXI, LIPID, MG, CMP, DBIL, PHOS #### [facility] [address] [place] [address] Dr. Sarmad Patino Sodium [Moles/Vol] 142 mmol/L Normal 136-145 [facility] Comment on above: Performed By: #### U MAXI, LIPID, MG, CMP, DBIL, PHOS #### [facility] [address] [place] [address] Dr. Sarmad Patino Urea nitrogen [Mass/Vol] 14.0 mg/dL Normal 7.0-18.[address] [facility] Comment on above: Performed By: #### U MAXI, LIPID, MG, CMP, DBIL, PHOS #### [facility] [address] [address] [address] Sarmad Patino Urea nitrogen/Creatinine [Mass ratio] 17.5 mg/mg Normal [facility] Comment on above: Performed By: #### U MAXI, LIPID, MG, CMP, DBIL, PHOS #### [facility] [address] [address] [address] Sarmad Patino URIC ACID SERUMon 04-08-2022 Urate [Mass/Vol] 5.2 mg/dL Normal 2.6-6.0 [facility] Comment on above: Performed By: #### U MAXI, LIPID, MG, CMP, DBIL, PHOS #### [facility] [address] [address] [address] Sarmad Patino BK VIRUS PCR QUANTon 022 BKV DNA QUANT PCR PLASMA Negative Normal Negative [facility] Comment on above: Result Comment: No B K DNA detected. . The linear range of the assay is 22 - 100,000,000 IU/mL. Performed By: #### D DAVIDSON, MG, PHOS, CMP, LIPID, URIC #### [facility] [address] [address] [address] Sarmad Patino Log10 BKV DNA Plasma Normal [facility] Comment on above: Performed By: #### D DAVIDSON, MG, PHOS, CMP, LIPID, URIC #### [facility] [address] [address] [address] Sarmad Patino FK506 (TACROLIMUS) WHOLE BLO ODon 03-13-2022 Tacrolimus (FK506), Blood 5.0 ng/mL Normal 2.0-20.0 [facility] Comment on above: Result Comment: Trou gh (immediately following transplant) 15.0 . Trough (steady state, 2 weeks or more after transplant): 3.0 - 8.0 . Performed by LC-MS/MS technology. Performed By: #### D DAVIDSON, MG, PHOS, CMP, LIPID, URIC #### [facility] [address] [address] [address] Sarmad Patino GLYCOHEMOGLOBIN A1Con 2021 ADA RECOMMENDATION SEE BELOW Normal [facility] Comment on above: Result Comment: ADA RECOMMENDED LIMIT 4.0 - 6.0 ADA THERAPEUTIC TARGET < 7.0 ACTION SUGGESTED > 7.0 Performed By: #### D DAVIDSON, MG, PHOS, CMP, LIPID, URIC #### [facility] [address] [place] [address] Dr. Sarmad Patino Glucose [Mass/Vol] 111 mg/dL Normal [facility] Comment on above: Performed By: #### D DAVIDSON, MG, PHOS, CMP, LIPID, URIC #### [facility] [address] [place] [address] Dr. Sarmad Patino HbA1c (Bld) [Mass fraction] 5.5 % Normal 4.5-6.2 [facility] Comment on above: Performed By: #### D DAVIDSON, MG, PHOS, CMP, LIPID, URIC #### [facility] [address] [place] [address] Dr. Sarmad Patino LIVER PROFILEon 03-11-2022 Albumin [Mass/Vol] 3.7 g/dL Normal 3.4-5.0 [facility] Comment on above: Performed By: #### D DAVIDSON, MG, PHOS, CMP, LIPID, URIC #### [facility] [address] [place] [address] Dr. Sarmad Patino Albumin/Globulin [Mass ratio] 1.1 {ratio} Normal [facility] Comment on above: Performed By: #### D DAVIDSON, MG, PHOS, CMP, LIPID, URIC #### [facility] [address] [place] [address] Dr. Sarmad Patino ALP [Catalytic activity/Vol] 124 U/L Critically high 46-116 [facility] Comment on above: Performed By: #### D DAVIDSON, MG, PHOS, CMP, LIPID, URIC #### [facility] [address] [place] [address] Dr. Sarmad Patino ALT [Catalytic activity/Vol] 17 U/L Normal 14-59 [facility] Comment on above: Performed By: #### D DAVIDSON, MG, PHOS, CMP, LIPID, URIC #### [facility] [address] [place] [address] Dr. Sarmad Patino AST [Catalytic activity/Vol] 16 U/L Normal 15-37 [facility] Comment on above: Performed By: #### D DAVIDSON, MG, PHOS, CMP, LIPID, URIC #### [facility] [address] [place] [address] Dr. Sarmad Patino BILI, CONJUGATED 0.2 mg/dL Normal 0.0-0.2 [facility] Comment on above: Performed By: #### D DAVIDSON, MG, PHOS, CMP, LIPID, URIC #### [facility] [address] [address] [address] Sarmad Patino Bilirubin [Mass/Vol] 0.6 mg/dL Normal 0.2-1.0 [facility] Comment on above: Performed By: #### D DAVIDSON, MG, PHOS, CMP, LIPID, URIC #### [facility] [address] [place] [address] Dr. Sarmad Patino Globulin (S) [Mass/Vol] 3.4 g/dL Normal [facility] Comment on above: Performed By: #### D DAVIDSON, MG, PHOS, CMP, LIPID, URIC #### [facility] [address] [address] [address] Sarmad Patino Protein [Mass/Vol] 7.1 g/dL Normal 6.4-8.2 [facility] Comment on above: Performed By: #### D DAVIDSON, MG, PHOS, CMP, LIPID, URIC #### [facility] [address] [place] [address] Dr. Sarmad Patino MAGNESIUMon 03-11-2022 Magnesium [Mass/Vol] 1.6 mg/dL Critically low 1.8-2.[address] [facility] Comment on above: Performed By: #### D DAVIDSON, MG, PHOS, CMP, LIPID, URIC #### [facility] [address] [place] [address] Dr. Sarmad Patino PHOSPHORUSon 03-11-2022 Phosphate [Mass/Vol] 3.5 mg/dL Normal 2.6-4.7 [facility] Comment on above: Performed By: #### D DAVIDSON, MG, PHOS, CMP, LIPID, URIC #### [facility] [address] [address] [address] Sarmad Patino URIC ACID SERUMon 03-11-2022 Urate [Mass/Vol] 5.3 mg/dL Normal 2.6-6.0 [facility] Comment on above: Performed By: #### D DAVIDSON, MG, PHOS, CMP, LIPID, URIC #### [facility] [address] [address] [address] Sarmad Patino MYCOPHENOLIC ACIDon 02-19-20 Mycophenolic Acid 1.5 ug/mL Normal 1.0-3.5 [facility] Comment on above: Performed By: #### D DAVIDSON, MG, PHOS, CMP, LIPID, URIC #### [facility] [address] [place] [address] Dr. Sarmad Patino Mycophenolic Acid Glucuronide 32 ug/mL Normal 15-[address] [facility] Comment on above: Result Comment: [facility] 's Reference Range: 35-100 mcg/mL. Performed By: #### D DAVIDSON, MG, PHOS, CMP, LIPID, URIC #### [facility] [address] [place] [address] Dr. Sarmad Patino BK VIRUS PCR QUANTon 022 BKV DNA QUANT PCR PLASMA Negative Normal Negative [facility] Comment on above: Result Comment: No B K DNA detected. . The linear range of the assay is 22 - 100,000,000 IU/mL. Performed By: #### D DAVIDSON, MG, PHOS, CMP, LIPID, URIC #### [facility] [address] [place] [address] Dr. Sarmad Patino Log10 BKV DNA Plasma Normal [facility] Comment on above: Performed By: #### D DAVIDSON, MG, PHOS, CMP, LIPID, URIC #### [facility] [address] [place] [address] Dr. Sarmad Patino FK506 (TACROLIMUS) WHOLE BLO ODon 02-11-2022 Tacrolimus (FK506), Blood 4.4 ng/mL Normal 2.0-20.0 [facility] Comment on above: Result Comment: Trou gh (immediately following transplant) 15.0 . Trough (steady state, 2 weeks or more after transplant): 3.0 - 8.0 . Performed by LC-MS/MS technology. Performed By: #### U MAXI, LIPID, MG, CMP, DBIL, PHOS #### [facility] [address] [place] [address] Dr. Sarmad Patino BILIRUBIN CONJUGATED (DIRECT )on 02-08-2022 BILI, CONJUGATED 0.1 mg/dL Normal 0.0-0.2 [facility] Comment on above: Performed By: #### D DAVIDSON, MG, PHOS, CMP, LIPID, URIC #### [facility] [address] [place] [address] Dr. Sarmad Patino CBC AUTO DIFFon 02-08-2022 BASO # 0.0 103/ul Normal 0.0-0.[address] [facility] Comment on above: Performed By: #### D DAVIDSON, MG, PHOS, CMP, LIPID, URIC #### [facility] [address] [place] [address] Dr. Sarmad Patino Basophils/100 WBC (Bld) 0.3 % Normal 0.2-2.[address] [facility] Comment on above: Performed By: #### D DAVIDSON, MG, PHOS, CMP, LIPID, URIC #### [facility] [address] [place] [address] Dr. Sarmad Patino EO # 0.1 103/ul Normal 0.0-0.[address] [facility] Comment on above: Performed By: #### D DAVIDSON, MG, PHOS, CMP, LIPID, URIC #### [facility] [address] [place] [address] Dr. Sarmad Patino Eosinophils/100 WBC (Bld) 1.0 % Normal 0.9-7.[address] [facility] Comment on above: Performed By: #### D DAVIDSON, MG, PHOS, CMP, LIPID, URIC #### [facility] [address] [place] [address] Dr. Sarmad Patino Erythrocyte distribution width (RBC) [Ratio] 15.9 % Critically high 11.0-15.[address] [facility] Comment on above: Performed By: #### D DAVIDSON, MG, PHOS, CMP, LIPID, URIC #### [facility] [address] [place] [address] Dr. Sarmad Patino Hematocrit (Bld) [Volume fraction] 42.2 % Normal 36.0-48.0 [facility] Comment on above: Performed By: #### D DAVIDSON, MG, PHOS, CMP, LIPID, URIC #### [facility] [address] [place] [address] Dr. Sarmad Patino Hemoglobin (Bld) [Mass/Vol] 13.8 g/dL Normal 12.0-16.0 [facility] Comment on above: Performed By: #### D DAVIDSON, MG, PHOS, CMP, LIPID, URIC #### [facility] [address] [place] [address] Dr. Sarmad Patino IG # 0.10 10e3/ul Critically high 0.00-0.03 [facility] Comment on above: Performed By: #### D DAVIDSON, MG, PHOS, CMP, LIPID, URIC #### [facility] [address] [place] [address] Dr. Sarmad Patino IG % 1.1 % Critically high 0.0-0.5 [facility] Comment on above: Performed By: #### D DAVIDSON, MG, PHOS, CMP, LIPID, URIC #### [facility] [address] [place] [address] Dr. Sarmad Patino LYMPH # 1.2 103/ul Normal 1.2-3.[address] [facility] Comment on above: Performed By: #### D DAVIDSON, MG, PHOS, CMP, LIPID, URIC #### [facility] [address] [place] [address] Dr. Sarmad Patino Lymphocytes/100 WBC (Bld) 12.6 % Critically low 20.5-60.0 [facility] Comment on above: Performed By: #### D DAVIDSON, MG, PHOS, CMP, LIPID, URIC #### [facility] [address] [place] [address] Dr. Sarmad Patino MANUAL DIFF REQ NO Normal [facility] Comment on above: Performed By: #### D DAVIDSON, MG, PHOS, CMP, LIPID, URIC #### [facility] [address] [address] [address] Sarmad Patino MCH (RBC) [Entitic mass] 28.3 pg Normal 26.7-34.[address] [facility] Comment on above: Performed By: #### D DAVIDOSN, MG, PHOS, CMP, LIPID, URIC #### [facility] [address] [place] [address] Dr. Sarmad Patino MCHC (RBC) [Mass/Vol] 32.7 g/dL Normal 29.9-35.[address] [facility] Comment on above: Performed By: #### D DAVIDSON, MG, PHOS, CMP, LIPID, URIC #### [facility] [address] [place] [address] Dr. Sarmad Patino MCV (RBC) [Entitic vol] 86.7 fL Normal 81.0-99.[address] [facility] Comment on above: Performed By: #### D DAVIDSON, MG, PHOS, CMP, LIPID, URIC #### [facility] [address] [place] [address] Dr. Sarmad Patino MONO # 1.0 103/ul Critically high 0.3-0.8 [facility] Comment on above: Performed By: #### D DAVIDSON, MG, PHOS, CMP, LIPID, URIC #### [facility] [address] [place] [address] Dr. Sarmad Patino Monocytes/100 WBC (Bld) 10.7 % Normal 1.7-12.[address] [facility] Comment on above: Performed By: #### D DAVIDSON, MG, PHOS, CMP, LIPID, URIC #### [facility] [address] [place] [address] Dr. Sarmad Patino NEUT # 6.9 103/ul Critically high 1.4-6.5 [facility] Comment on above: Performed By: #### D DAVIDSON, MG, PHOS, CMP, LIPID, URIC #### [facility] [address] [place] [address] Dr. Sarmad Patino Neutrophils/100 WBC (Bld) 74.3 % Normal 43.0-75.0 [facility] Comment on above: Performed By: #### D DAVIDSON, MG, PHOS, CMP, LIPID, URIC #### [facility] [address] [address] [address] Sarmad Patino Platelet mean volume (Bld) [Entitic vol] 11.1 fL Normal 9.5-13.[address] [facility] Comment on above: Performed By: #### D DAVIDSON, MG, PHOS, CMP, LIPID, URIC #### [facility] [address] [address] [address] Sarmad Patino PLT 307 103/ul Normal 150-[address] [facility] Comment on above: Performed By: #### D DAVIDSON, MG, PHOS, CMP, LIPID, URIC #### [facility] [address] [place] [address] Dr. Sarmad Patino RBC 4.87 106/ul Normal 4.20-5.[address] [facility] Comment on above: Performed By: #### D DAVIDSON, MG, PHOS, CMP, LIPID, URIC #### [facility] [address] [address] [address] Sarmad Patino WBC 9.3 103/ul Normal 4.0-11.[address] [facility] Comment on above: Performed By: #### D DAVIDSON, MG, PHOS, CMP, LIPID, URIC #### [facility] [address] [place] [address] Dr. Sarmad Patino GLYCOHEMOGLOBIN A1Con 2021 ADA RECOMMENDATION SEE BELOW Normal [facility] Comment on above: Result Comment: ADA RECOMMENDED LIMIT 4.0 - 6.0 ADA THERAPEUTIC TARGET < 7.0 ACTION SUGGESTED > 7.0 Performed By: #### D DAVIDSON, MG, PHOS, CMP, LIPID, URIC #### [facility] [address] [place] [address] Dr. Sarmad Patino Glucose [Mass/Vol] 134 mg/dL Normal [facility] Comment on above: Performed By: #### D DAVIDSON, MG, PHOS, CMP, LIPID, URIC #### [facility] [address] [place] [address] Dr. Sarmad Patino HbA1c (Bld) [Mass fraction] 6.3 % Critically high 4.5-6.2 [facility] Comment on above: Performed By: #### D DAVIDSON, MG, PHOS, CMP, LIPID, URIC #### [facility] [address] [address] [address] Saramd Patino LIPID PROFILEon 02-08-2022 CHOL-HDL RATIO NORM SEE BELOW Normal [facility] Comment on above: Result Comment: 3.3 - 4.4 LOW RISK 4.4 - 7.1 AVERAGE RISK 7.1 - 11.0 MODERATE RISK >11.0 HIGH RISK Performed By: #### D DAVIDSON, MG, PHOS, CMP, LIPID, URIC #### [facility] [address] [address] [address] Sarmad Patino Cholesterol [Mass/Vol] 180 mg/dL Normal <=200 [facility] Comment on above: Performed By: #### D DAVIDSON, MG, PHOS, CMP, LIPID, URIC #### [facility] [address] [address] [address] Sarmad Patino Cholesterol in HDL [Mass/Vol] 58 mg/dL Normal 40-60 [facility] Comment on above: Performed By: #### D DAVIDSON, MG, PHOS, CMP, LIPID, URIC #### [facility] [address] [address] [address] Sarmad Patino Cholesterol in LDL [Mass/Vol] 86.6 mg/dL Normal [facility] Comment on above: Performed By: #### D DAVIDSON, MG, PHOS, CMP, LIPID, URIC #### [facility] [address] [address] [address] Sarmad Patino Cholesterol.total/Cho lesterol in HDL [Mass ratio] 3.1 {ratio} Normal [facility] Comment on above: Performed By: #### D DAVIDSON, MG, PHOS, CMP, LIPID, URIC #### [facility] [address] [address] [address] Sarmad Patino HDL NORMAL > or = 60 mg/dl - LO W CARDIOVASCULAR RISK <40 mg/dl - HIGH CARDIOVASCULAR RISK Normal [facility] Comment on above: Performed By: #### D DAVIDSON, MG, PHOS, CMP, LIPID, URIC #### [facility] [address] [address] [address] Sarmad Patino LDL CALC NORMAL SEE BELOW Normal [facility] Comment on above: Result Comment: <100 mg/dl OPTIMAL 100 - 129 mg/dl NEAR OR ABOVE OPTIMAL 130 - 159 mg/dl BORDERLINE HIGH 160 - 189 mg/dl HIGH >190 mg/dl VERY HIGH Performed By: #### D DAVIDSON, MG, PHOS, CMP, LIPID, URIC #### [facility] [address] [address] [address] Sarmad Patino Triglyceride [Mass/Vol] 177 mg/dL Critically high <=150 [facility] Comment on above: Performed By: #### D DAVIDSON, MG, PHOS, CMP, LIPID, URIC #### [facility] [address] [place] [address] Dr. Sarmad Patino VLDL CALC 35.4 mg/dL Normal [facility] Comment on above: Performed By: #### D DAVIDSON, MG, PHOS, CMP, LIPID, URIC #### [facility] [address] [place] [address] Dr. Sarmad Patino MAGNESIUMon 02-08-2022 Magnesium [Mass/Vol] 1.8 mg/dL Normal 1.8-2.4 [facility] Comment on above: Performed By: #### D DAVIDSON, MG, PHOS, CMP, LIPID, URIC #### [facility] [address] [place] [address] Dr. Sarmad Patino PHOSPHORUSon 02-08-2022 Phosphate [Mass/Vol] 3.3 mg/dL Normal 2.6-4.[address] [facility] Comment on above: Performed By: #### D DAVIDSON, MG, PHOS, CMP, LIPID, URIC #### [facility] [address] [place] [address] Dr. Sarmad Patino PROF 14(COMP METB)on 022 Albumin [Mass/Vol] 3.8 g/dL Normal 3.4-5.0 [facility] Comment on above: Performed By: #### D DAVIDSON, MG, PHOS, CMP, LIPID, URIC #### [facility] [address] [place] [address] Dr. Sarmad Patino Albumin/Globulin [Mass ratio] 1.3 {ratio} Normal [facility] Comment on above: Performed By: #### D DAVIDSON, MG, PHOS, CMP, LIPID, URIC #### [facility] [address] [place] [address] Dr. Sarmad Patino ALP [Catalytic activity/Vol] 144 U/L Critically high 46-116 [facility] Comment on above: Performed By: #### D DAVIDSON, MG, PHOS, CMP, LIPID, URIC #### [facility] [address] [place] [address] Dr. Sarmad Patino ALT [Catalytic activity/Vol] 24 U/L Normal 14-59 [facility] Comment on above: Performed By: #### D DAVIDSON, MG, PHOS, CMP, LIPID, URIC #### [facility] [address] [place] [address] Dr. Sarmad Patino Anion gap [Moles/Vol] 13.7 mmol/L Normal [facility] Comment on above: Performed By: #### D DAVIDSON, MG, PHOS, CMP, LIPID, URIC #### [facility] [address] [place] [address] Dr. Sarmad Patino AST [Catalytic activity/Vol] 19 U/L Normal 15-37 [facility] Comment on above: Performed By: #### D DAVIDSON, MG, PHOS, CMP, LIPID, URIC #### [facility] [address] [place] [address] Dr. Saramd Patino Bilirubin [Mass/Vol] 0.5 mg/dL Normal 0.2-1.0 [facility] Comment on above: Performed By: #### D DAVIDSON, MG, PHOS, CMP, LIPID, URIC #### [facility] [address] [place] [address] Dr. Sarmad Patino Calcium [Mass/Vol] 9.6 mg/dL Normal 8.5-10.1 [facility] Comment on above: Performed By: #### D DAVIDSON, MG, PHOS, CMP, LIPID, URIC #### [facility] [address] [address] [address] Sarmad Patino Chloride [Moles/Vol] 103 mmol/L Normal 98-107 [facility] Comment on above: Performed By: #### D DAVIDSON, MG, PHOS, CMP, LIPID, URIC #### [facility] [address] [address] [address] Sarmad Patino CO2 [Moles/Vol] 26.6 mmol/L Normal 21.0-32.0 [facility] Comment on above: Performed By: #### D DAVIDSON, MG, PHOS, CMP, LIPID, URIC #### [facility] [address] [address] [address] Sarmad Patino Creatinine [Mass/Vol] 0.75 mg/dL Normal 0.55-1.02 [facility] Comment on above: Performed By: #### D DAVIDSON, MG, PHOS, CMP, LIPID, URIC #### [facility] [address] [address] [address] Sarmad Patino EGFR-AF [place] >60 Normal >=60 [facility] Comment on above: Performed By: #### D DAVIDSON, MG, PHOS, CMP, LIPID, URIC #### [facility] [address] [place] [address] Dr. Sarmad Patino EGFR-NON AF [place] >60 Normal >=60 [facility] Comment on above: Performed By: #### D DAVIDSON, MG, PHOS, CMP, LIPID, URIC #### [facility] [address] [address] [address] Sarmad Patino Globulin (S) [Mass/Vol] 3.0 g/dL Normal [facility] Comment on above: Performed By: #### D DAVIDSON, MG, PHOS, CMP, LIPID, URIC #### [facility] [address] [place] [address] Dr. Sarmad Patino Glucose [Mass/Vol] 99 mg/dL Normal 74-106 [facility] Comment on above: Performed By: #### D DAVIDSON, MG, PHOS, CMP, LIPID, URIC #### [facility] [address] [place] [address] Dr. Sarmad Patino Potassium [Moles/Vol] 4.3 mmol/L Normal 3.5-5.[address] [facility] Comment on above: Performed By: #### D DAVIDSON, MG, PHOS, CMP, LIPID, URIC #### [facility] [address] [place] [address] Dr. Sarmad Patino Protein [Mass/Vol] 6.8 g/dL Normal 6.4-8.2 [facility] Comment on above: Performed By: #### D DAVIDSON, MG, PHOS, CMP, LIPID, URIC #### [facility] [address] [place] [address] Dr. Sarmad Patino Sodium [Moles/Vol] 139 mmol/L Normal 136-145 [facility] Comment on above: Performed By: #### D DAVIDSON, MG, PHOS, CMP, LIPID, URIC #### [facility] [address] [place] [address] Dr. Sarmad Patino Urea nitrogen [Mass/Vol] 16.0 mg/dL Normal 7.0-18.[address] [facility] Comment on above: Performed By: #### D DAVIDSON, MG, PHOS, CMP, LIPID, URIC #### [facility] [address] [place] [address] Dr. Sarmad Patino Urea nitrogen/Creatinine [Mass ratio] 21.3 mg/mg Normal [facility] Comment on above: Performed By: #### D DAVIDSON, MG, PHOS, CMP, LIPID, URIC #### [facility] [address] [place] [address] Dr. Sarmad Patino URIC ACID SERUMon 02-08-2022 Urate [Mass/Vol] 5.4 mg/dL Normal 2.6-6.0 [facility] Comment on above: Performed By: #### D DAVIDSON, MG, PHOS, CMP, LIPID, URIC #### [facility] [address] [place] [address] Dr. Sarmad Patino BK VIRUS PCR QUANTon 022 BKV DNA QUANT PCR PLASMA 27 IU/mL Normal Negative [facility] Comment on above: Result Comment: The linear range of the assay is 22 - 100,000,000 IU/mL. Performed By: #### D DAVIDSON, MG, PHOS, CMP, LIPID, URIC #### [facility] [address] [place] [address] Dr. Sarmad Patino Log10 BKV DNA Plasma 1.431 log10 IU/mL Normal [facility] Comment on above: Performed By: #### D DAVIDSON, MG, PHOS, CMP, LIPID, URIC #### [facility] [address] [place] [address] Dr. Sarmad Patino FK506 (TACROLIMUS) WHOLE BLO ODon 01-30-2022 Tacrolimus (FK506), Blood 6.5 ng/mL Normal 2.0-20.0 [facility] Comment on above: Result Comment: Trou gh (immediately following transplant) 15.0 . Trough (steady state, 2 weeks or more after transplant): 3.0 - 8.0 . Performed by LC-MS/MS technology. Performed By: #### D DAVIDSON, MG, PHOS, CMP, LIPID, URIC #### [facility] [address] [place] [address] Dr. Sarmad Patino RAPAMUNE(SIROLIMUS)on 2021 Rapamune(Sirolimus), whole blood 9.9 ng/mL Normal 3.0-20.0 [facility] Comment on above: Result Comment: Perf ormed by LC/MS-MS technology . This test was developed and its performance characteristics determined by [employer]. It has not been cleared or approved by the Food and Drug Administration. Performed By: #### D DAVIDSON, MG, PHOS, CMP, LIPID, URIC #### [facility] [address] [place] [address] Dr. Sarmad Patino BILIRUBIN CONJUGATED (DIRECT )on 01-28-2022 BILI, CONJUGATED 0.1 mg/dL Normal 0.0-0.2 [facility] Comment on above: Performed By: #### D DAVIDSON, MG, PHOS, CMP, LIPID, URIC #### [facility] [address] [place] [address] Dr. Sarmad Patino CBC AUTO DIFFon 01-28-2022 BASO # 0.0 103/ul Normal 0.0-0.1 [facility] Comment on above: Performed By: #### D DAVIDSON, MG, PHOS, CMP, LIPID, URIC #### [facility] [address] [place] [address] Dr. Sarmad Patino Basophils/100 WBC (Bld) 0.3 % Normal 0.2-2.[address] [facility] Comment on above: Performed By: #### D DAVIDSON, MG, PHOS, CMP, LIPID, URIC #### [facility] [address] [place] [address] Dr. Sarmad Patino EO # 0.2 103/ul Normal 0.0-0.[address] [facility] Comment on above: Performed By: #### D DAVIDSON, MG, PHOS, CMP, LIPID, URIC #### [facility] [address] [place] [address] Dr. Sarmad Patino Eosinophils/100 WBC (Bld) 3.1 % Normal 0.9-7.[address] [facility] Comment on above: Performed By: #### D DAVIDSON, MG, PHOS, CMP, LIPID, URIC #### [facility] [address] [place] [address] Dr. Sarmad Patino Erythrocyte distribution width (RBC) [Ratio] 15.4 % Critically high 11.0-15.[address] [facility] Comment on above: Performed By: #### D DAVIDSON, MG, PHOS, CMP, LIPID, URIC #### [facility] [address] [place] [address] Dr. Sarmad Patino Hematocrit (Bld) [Volume fraction] 42.6 % Normal 36.0-48.[address] [facility] Comment on above: Performed By: #### D DAVIDSON, MG, PHOS, CMP, LIPID, URIC #### [facility] [address] [place] [address] Dr. Sarmad Patino Hemoglobin (Bld) [Mass/Vol] 14.0 g/dL Normal 12.0-16.0 [facility] Comment on above: Performed By: #### D DAVIDSON, MG, PHOS, CMP, LIPID, URIC #### [facility] [address] [place] [address] Dr. Sarmad Patino IG # 0.05 10e3/ul Critically high 0.00-0.03 [facility] Comment on above: Performed By: #### D DAVIDSON, MG, PHOS, CMP, LIPID, URIC #### [facility] [address] [place] [address] Dr. Sarmad Patino IG % 0.7 % Critically high 0.0-0.5 [facility] Comment on above: Performed By: #### D DAVIDSON, MG, PHOS, CMP, LIPID, URIC #### [facility] [address] [place] [address] Dr. Sarmad Patino LYMPH # 1.1 103/ul Critically low 1.2-3.8 [facility] Comment on above: Performed By: #### D DAVIDSON, MG, PHOS, CMP, LIPID, URIC #### [facility] [address] [place] [address] Dr. Sarmad Patino Lymphocytes/100 WBC (Bld) 15.8 % Critically low 20.5-60.0 [facility] Comment on above: Performed By: #### D DAVIDSON, MG, PHOS, CMP, LIPID, URIC #### [facility] [address] [place] [address] Dr. Sarmad Patino MANUAL DIFF REQ NO Normal [facility] Comment on above: Performed By: #### D DAVIDSON, MG, PHOS, CMP, LIPID, URIC #### [facility] [address] [place] [address] Dr. Sarmad Patino MCH (RBC) [Entitic mass] 28.3 pg Normal 26.7-34.0 [facility] Comment on above: Performed By: #### D DAVIDSON, MG, PHOS, CMP, LIPID, URIC #### [facility] [address] [place] [address] Dr. Sarmad Patino MCHC (RBC) [Mass/Vol] 32.9 g/dL Normal 29.9-35.2 [facility] Comment on above: Performed By: #### D DAVIDSON, MG, PHOS, CMP, LIPID, URIC #### [facility] [address] [place], [place] [id number] Dr. Sarmad Patino MCV (RBC) [Entitic vol] 86.2 fL Normal 81.0-99.0 [facility] Comment on above: Performed By: #### D DAVIDSON, MG, PHOS, CMP, LIPID, URIC #### [facility] [address] [place] [address] Dr. Sarmad Patino MONO # 0.8 103/ul Normal 0.3-0.[address] [facility] Comment on above: Performed By: #### D DAVIDSON, MG, PHOS, CMP, LIPID, URIC #### [facility] [address] [place] [address] Dr. Sarmad Patino Monocytes/100 WBC (Bld) 11.0 % Normal 1.7-12.[address] [facility] Comment on above: Performed By: #### D DAVIDSON, MG, PHOS, CMP, LIPID, URIC #### [facility] [address] [place] [address] Dr. Sarmad Patino NEUT # 4.8 103/ul Normal 1.4-6.[address] [facility] Comment on above: Performed By: #### D DAVIDSON, MG, PHOS, CMP, LIPID, URIC #### [facility] [address] [place] [address] Dr. Sarmad Patino Neutrophils/100 WBC (Bld) 69.1 % Normal 43.0-75.[address] [facility] Comment on above: Performed By: #### D DAVIDSON, MG, PHOS, CMP, LIPID, URIC #### [facility] [address] [place] [address] Dr. Sarmad Patino Platelet mean volume (Bld) [Entitic vol] 10.8 fL Normal 9.5-13.[address] [facility] Comment on above: Performed By: #### D DAVIDSON, MG, PHOS, CMP, LIPID, URIC #### [facility] [address] [place] [address] Dr. Sarmad Patino PLT 208 103/ul Normal 150-[address] [facility] Comment on above: Performed By: #### D DAVIDSON, MG, PHOS, CMP, LIPID, URIC #### [facility] [address] [address] [address] Sarmad Patino RBC 4.94 106/ul Normal 4.20-5.40 [facility] Comment on above: Performed By: #### D DAVIDSON, MG, PHOS, CMP, LIPID, URIC #### [facility] [address] [address] [address] Sarmad Patino WBC 7.0 103/ul Normal 4.0-11.0 [facility] Comment on above: Performed By: #### D DAVIDSON, MG, PHOS, CMP, LIPID, URIC #### [facility] [address] [address] [address] Sarmad Patino GLYCOHEMOGLOBIN A1Con 2021 ADA RECOMMENDATION SEE BELOW Normal [facility] Comment on above: Result Comment: ADA RECOMMENDED LIMIT 4.0 - 6.0 ADA THERAPEUTIC TARGET < 7.0 ACTION SUGGESTED > 7.0 Performed By: #### D DAVIDSON, MG, PHOS, CMP, LIPID, URIC #### [facility] [address] [address] [address] Sarmad Patino Glucose [Mass/Vol] 137 mg/dL Normal [facility] Comment on above: Performed By: #### D DAVIDSON, MG, PHOS, CMP, LIPID, URIC #### [facility] [address] [place] [address] Dr. Sarmad Patino HbA1c (Bld) [Mass fraction] 6.4 % Critically high 4.5-6.2 [facility] Comment on above: Performed By: #### D DAVIDSON, MG, PHOS, CMP, LIPID, URIC #### [facility] [address] [place] [address] Dr. Sarmad Patino LIPID PROFILEon 01-28-2022 CHOL-HDL RATIO NORM SEE BELOW Normal [facility] Comment on above: Result Comment: 3.3 - 4.4 LOW RISK 4.4 - 7.1 AVERAGE RISK 7.1 - 11.0 MODERATE RISK >11.0 HIGH RISK Performed By: #### D DAVIDSON, MG, PHOS, CMP, LIPID, URIC #### [facility] [address] [place] [address] Dr. Sarmad Patino Cholesterol [Mass/Vol] 209 mg/dL Critically high <=200 [facility] Comment on above: Performed By: #### D DAVIDSON, MG, PHOS, CMP, LIPID, URIC #### [facility] [address] [address] [address] Sarmad Patino Cholesterol in HDL [Mass/Vol] 59 mg/dL Normal 40-[address] [facility] Comment on above: Performed By: #### D DAVIDSON, MG, PHOS, CMP, LIPID, URIC #### [facility] [address] [address] [address] Sarmad Patino Cholesterol in LDL [Mass/Vol] 100.4 mg/dL Normal [facility] Comment on above: Performed By: #### D DAVIDSON, MG, PHOS, CMP, LIPID, URIC #### [facility] [address] [address] [address] Sarmad Patino Cholesterol.total/Cho lesterol in HDL [Mass ratio] 3.5 {ratio} Normal [facility] Comment on above: Performed By: #### D DAVIDSON, MG, PHOS, CMP, LIPID, URIC #### [facility] [address] [address] [address] Sarmad Patino HDL NORMAL > or = 60 mg/dl - LO W CARDIOVASCULAR RISK <40 mg/dl - HIGH CARDIOVASCULAR RISK Normal [facility] Comment on above: Performed By: #### D DAVIDSON, MG, PHOS, CMP, LIPID, URIC #### [facility] [address] [address] [address] Sarmad Patino LDL CALC NORMAL SEE BELOW Normal [facility] Comment on above: Result Comment: <100 mg/dl OPTIMAL 100 - 129 mg/dl NEAR OR ABOVE OPTIMAL 130 - 159 mg/dl BORDERLINE HIGH 160 - 189 mg/dl HIGH >190 mg/dl VERY HIGH Performed By: #### D DAVIDSON, MG, PHOS, CMP, LIPID, URIC #### [facility] [address] [address] [address] Sarmad Patino Triglyceride [Mass/Vol] 248 mg/dL Critically high <=[address] [facility] Comment on above: Performed By: #### D DAVIDSON, MG, PHOS, CMP, LIPID, URIC #### [facility] [address] [address] [address] Sarmad Patino VLDL CALC 49.6 mg/dL Normal [facility] Comment on above: Performed By: #### D DAVIDSON, MG, PHOS, CMP, LIPID, URIC #### [facility] [address] [address] [address] Sarmad Patino MAGNESIUMon 01-28-2022 Magnesium [Mass/Vol] 1.6 mg/dL Critically low 1.8-2.4 [facility] Comment on above: Performed By: #### D DAVIDSON, MG, PHOS, CMP, LIPID, URIC #### [facility] [address] [place] [address] Dr. Sarmad Patino PHOSPHORUSon 01-28-2022 Phosphate [Mass/Vol] 2.7 mg/dL Normal 2.6-4.7 [facility] Comment on above: Performed By: #### D DAVIDSON, MG, PHOS, CMP, LIPID, URIC #### [facility] [address] [place] [address] Dr. Sarmad Patino PROF 14(COMP METB)on 022 Albumin [Mass/Vol] 3.3 g/dL Critically low 3.4-5.0 [facility] Comment on above: Performed By: #### D DAVIDSON, MG, PHOS, CMP, LIPID, URIC #### [facility] [address] [address] [address] Sarmad Patino Albumin/Globulin [Mass ratio] 0.9 {ratio} Normal [facility] Comment on above: Performed By: #### D DAVIDSON, MG, PHOS, CMP, LIPID, URIC #### [facility] [address] [address] [address] Sarmad Patino ALP [Catalytic activity/Vol] 124 U/L Critically high 46-116 [facility] Comment on above: Performed By: #### D DAVIDSON, MG, PHOS, CMP, LIPID, URIC #### [facility] [address] [address] [address] Sarmad Patino ALT [Catalytic activity/Vol] 28 U/L Normal 14-59 [facility] Comment on above: Performed By: #### D DAVIDSON, MG, PHOS, CMP, LIPID, URIC #### [facility] [address] [address] [address] Sarmad Patino Anion gap [Moles/Vol] 12.0 mmol/L Normal Th [facility] Comment on above: Performed By: #### D DAVIDSON, MG, PHOS, CMP, LIPID, URIC #### [facility] [address] [address] [address] Sarmad Patino AST [Catalytic activity/Vol] 20 U/L Normal 15-37 [facility] Comment on above: Performed By: #### D DAVIDSON, MG, PHOS, CMP, LIPID, URIC #### [facility] [address] [place] [address] Dr. Sarmad Patino Bilirubin [Mass/Vol] 0.5 mg/dL Normal 0.2-1.0 [facility] Comment on above: Performed By: #### D DAVIDSON, MG, PHOS, CMP, LIPID, URIC #### [facility] [address] [place] [address] Dr. Sarmad Patino Calcium [Mass/Vol] 9.1 mg/dL Normal 8.5-10.1 [facility] Comment on above: Performed By: #### D DAVIDSON, MG, PHOS, CMP, LIPID, URIC #### [facility] [address] [place] [address] Dr. Sarmad Patino Chloride [Moles/Vol] 104 mmol/L Normal 98-107 [facility] Comment on above: Performed By: #### D DAVIDSON, MG, PHOS, CMP, LIPID, URIC #### [facility] [address] [place] [address] Dr. Sarmad Patino CO2 [Moles/Vol] 25.7 mmol/L Normal 21.0-32.0 [facility] Comment on above: Performed By: #### D DAVIDSON, MG, PHOS, CMP, LIPID, URIC #### [facility] [address] [address] [address] Sarmad Patino Creatinine [Mass/Vol] 0.77 mg/dL Normal 0.55-1.02 [facility] Comment on above: Performed By: #### D DAVIDSON, MG, PHOS, CMP, LIPID, URIC #### [facility] [address] [address] [address] Sarmad Patino EGFR-AF [place]AST [place] >60 Normal >=60 [facility] Comment on above: Performed By: #### D DAVIDSON, MG, PHOS, CMP, LIPID, URIC #### [facility] [address] [address] [address] Sarmad Patino EGFR-NON AF [place] >60 Normal >=60 [facility] Comment on above: Performed By: #### D DAVIDSON, MG, PHOS, CMP, LIPID, URIC #### [facility] [address] [address] [address] Sarmad Patino Globulin (S) [Mass/Vol] 3.7 g/dL Normal [facility] Comment on above: Performed By: #### D DAVIDSON, MG, PHOS, CMP, LIPID, URIC #### [facility] [address] [address] [address] Sarmad Patino Glucose [Mass/Vol] 108 mg/dL Critically high 74-106 [facility] Comment on above: Performed By: #### D DAVIDSON, MG, PHOS, CMP, LIPID, URIC #### [facility] [address] [place] [address] Dr. Sarmad Patino Potassium [Moles/Vol] 3.7 mmol/L Normal 3.5-5.1 [facility] Comment on above: Performed By: #### D DAVIDSON, MG, PHOS, CMP, LIPID, URIC #### [facility] [address] [address] [address] Sarmad Patino Protein [Mass/Vol] 7.0 g/dL Normal 6.4-8.2 [facility] Comment on above: Performed By: #### D DAVIDSON, MG, PHOS, CMP, LIPID, URIC #### [facility] [address] [address] [address] Sarmad Patino Sodium [Moles/Vol] 138 mmol/L Normal 136-145 [facility] Comment on above: Performed By: #### D DAVIDSON, MG, PHOS, CMP, LIPID, URIC #### [facility] [address] [address] [address] Sarmad Patino Urea nitrogen [Mass/Vol] 15.0 mg/dL Normal 7.0-18.0 [facility] Comment on above: Performed By: #### D DAVIDSON, MG, PHOS, CMP, LIPID, URIC #### [facility] [address] [address] [address] Sarmad Patino Urea nitrogen/Creatinine [Mass ratio] 19.5 mg/mg Normal [facility] Comment on above: Performed By: #### D DAVIDSON, MG, PHOS, CMP, LIPID, URIC #### [facility] [address] [address] [address] Sarmad Patino URIC ACID SERUMon 01-28-2022 Urate [Mass/Vol] 4.3 mg/dL Normal 2.6-6.0 [facility] Comment on above: Performed By: #### D DAVIDSON, MG, PHOS, CMP, LIPID, URIC #### [facility] [address] [address] [address] Sarmad Patino Quick Strepon 01-12-2022 S. pyogenes Org specific cx Ql (Throat) Negative [employer] Other Quick Strep [employer] [facility] [employer] Other XR CHEST 1 Von 01-07-2022 XR [...] ARTEMIO BERNARD Date: 2022-01-07 15:[address] [facility] CBC W MANUAL DIFFon 01-04-20 22 ATYPICAL LYMPH # 1.40 103/ul Normal [facility] Comment on above: Performed By: #### D DAVIDSON, MG, PHOS, CMP, LIPID, URIC #### [facility] [address] [address] [address] Sarmad Patino ATYPICAL LYMPH % 10 % Normal [facility] Comment on above: Performed By: #### D DAVIDSON, MG, PHOS, CMP, LIPID, URIC #### [facility] [address] [address] [address] Sarmad Patino BAND # 0.6 103/ul Critically high 0.0-0.3 [facility] Comment on above: Performed By: #### D DAVIDSON, MG, PHOS, CMP, LIPID, URIC #### [facility] [address] [address] [address] Sarmad Patino BAND % 4 % Normal 0-5 [facility] Comment on above: Performed By: #### D DAVIDSON, MG, PHOS, CMP, LIPID, URIC #### [facility] [address] [address] [address] Sarmad Patino BASOM # 0.00 103/ul Normal 0.00-0.[address] [facility] Comment on above: Performed By: #### D DAVIDSON, MG, PHOS, CMP, LIPID, URIC #### [facility] [address] [address] [address] Sarmad Patino BASOM % 0.0 % Critically low 0.2-2.0 [facility] Comment on above: Performed By: #### D DAVIDSON, MG, PHOS, CMP, LIPID, URIC #### [facility] [address] [address] [address] Sarmad Patino BLAST # Normal [facility] Comment on above: Performed By: #### D DAVIDSON, MG, PHOS, CMP, LIPID, URIC #### [facility] [address] [address] [address] Sarmad Patino BLAST % Normal [facility] Comment on above: Performed By: #### D DAVIDSON, MG, PHOS, CMP, LIPID, URIC #### [facility] [address] [address] [address] Sarmad Patino CORRECTED WBC Normal 4.0-11.0 [facility] Comment on above: Performed By: #### D DAVIDSON, MG, PHOS, CMP, LIPID, URIC #### [facility] [address] [address] [address] Sarmad Patino EOS # 0.14 103/ul Normal 0.00-0.70 [facility] Comment on above: Performed By: #### D DAVIDSON, MG, PHOS, CMP, LIPID, URIC #### [facility] [address] [place] [address] Dr. Sarmad Patino EOS% 1.0 % Normal 0.9-7.0 [facility] Comment on above: Performed By: #### D DAVIDSON, MG, PHOS, CMP, LIPID, URIC #### [facility] [address] [place] [address] Dr. Sarmad Patino HCT 42.8 % Normal 36.0-48.0 [facility] Comment on above: Performed By: #### D DAVIDSON, MG, PHOS, CMP, LIPID, URIC #### [facility] [address] [place] [address] Dr. Sarmad Patino HGB 14.2 g/dl Normal 12.0-16.0 [facility] Comment on above: Performed By: #### D DAVIDSON, MG, PHOS, CMP, LIPID, URIC #### [facility] [address] [place] [address] Dr. Sarmad Patino LYMPHM # 0.00 103/ul Critically low 1.20-3.80 [facility] Comment on above: Performed By: #### D DAVIDSON, MG, PHOS, CMP, LIPID, URIC #### [facility] [address] [place] [address] Dr. Sarmad Patino LYMPHM% 0.0 % Critically low 20.5-60.0 [facility] Comment on above: Performed By: #### D DAVIDSON, MG, PHOS, CMP, LIPID, URIC #### [facility] [address] [address] [address] Sarmad Patino MCH 28.8 pg Normal 26.7-34.[address] [facility] Comment on above: Performed By: #### D DAVIDSON, MG, PHOS, CMP, LIPID, URIC #### [facility] [address] [address] [address] Sarmad Patino MCHC 33.2 g/dl Normal 29.9-35.[address] [facility] Comment on above: Performed By: #### D DAVIDSON, MG, PHOS, CMP, LIPID, URIC #### [facility] [address] [address] [address] Sarmad Patino MCV 86.8 fL Normal 81.0-99.[address] [facility] Comment on above: Performed By: #### D DAVIDSON, MG, PHOS, CMP, LIPID, URIC #### [facility] [address] [address] [address] Sarmad Patino METAMYELOCYTE # Normal [facility] Comment on above: Performed By: #### D DAVIDSON, MG, PHOS, CMP, LIPID, URIC #### [facility] [address] [address] [address] Sarmad Patino METAMYELOCYTE % Normal [facility] Comment on above: Performed By: #### D DAVIDSON, MG, PHOS, CMP, LIPID, URIC #### [facility] [address] [address] [address] Sarmad Patino MONOM# 0.84 103/ul Critically high 0.30-0.80 [facility] Comment on above: Performed By: #### D DAVIDSON, MG, PHOS, CMP, LIPID, URIC #### [facility] [address] [address] [address] Sarmad Patino MONOM% 6.0 % Normal 1.7-12.0 [facility] Comment on above: Performed By: #### D DAVIDSON, MG, PHOS, CMP, LIPID, URIC #### [facility] [address] [address] [address] Sarmad Patino MPV 11.5 fL Normal 9.5-13.5 [facility] Comment on above: Performed By: #### D DAVIDSON, MG, PHOS, CMP, LIPID, URIC #### [facility] [address] [address] [address] Sarmad Patino MYELOCYTE # 0.3 103/ul Normal [facility] Comment on above: Performed By: #### D DAVIDSON, MG, PHOS, CMP, LIPID, URIC #### [facility] [address] [address] [address] Sarmad Patino MYELOCYTE % 2 % Normal [facility] Comment on above: Performed By: #### D DAVIDSON, MG, PHOS, CMP, LIPID, URIC #### [facility] [address] [place] [address] Dr. Sarmad Patino NRBC Normal [facility] Comment on above: Performed By: #### D DVAIDSON, MG, PHOS, CMP, LIPID, URIC #### [facility] [address] [place] [address] Dr. Sarmad Patino PLT 180 103/ul Normal 150-450 [facility] Comment on above: Performed By: #### D DAVIDSON, MG, PHOS, CMP, LIPID, URIC #### [facility] [address] [place] [address] Dr. Sarmad Patino RBC 4.93 106/ul Normal 4.20-5.40 [facility] Comment on above: Performed By: #### D DAVIDSON, MG, PHOS, CMP, LIPID, URIC #### [facility] [address] [address] [address] Sarmad Patino RDW 13.9 % Normal 11.0-15.0 [facility] [facility] Comment on above: Performed By: #### D DAVIDSON, MG, PHOS, CMP, LIPID, URIC #### [facility] [address] [place] [address] Dr. Sarmad Patino SEG # 10.78 103/ul Critically high 1.40-6.50 [facility] Comment on above: Performed By: #### D DAVIDSON, MG, PHOS, CMP, LIPID, URIC #### [facility] [address] [place] [address] Dr. Sarmad Patino SEG % 77.0 % Critically high 43.0-75.0 [facility] Comment on above: Performed By: #### D DAVIDSON, MG, PHOS, CMP, LIPID, URIC #### [facility] [address] [id number] Sarmad Patino WBC 14.0 103/ul Critically high 4.0-11.0 [facility] Comment on above: Performed By: #### D DAVIDSON, MG, PHOS, CMP, LIPID, URIC #### [facility] [address] [place], [place] [address] NECK [address] W [...] middle ear cavities clear. Skull base intact. Lip And Gate Builder spaces normal. Parotid glands normal. Submandibular glands [...] F WARD Date: 2022-01-03 10:[address] [facility] Covid-19 PCR ([facility]on SARS-CoV-2 (COVID-19) RNA MURALI+probe Ql (Unsp spec) Detected Critically abnormal NOT DETECTED [facility] Comment on above: Result Comment: This test is not yet approved or cleared by the [place] FDA. When there are no FDA-approved or cleared tests available, and other criteria are met, FDA can make tests available under an emergency access mechanism called an Emergency Use Authorization (EUA). The EUA for this test is supported by the Quality Compliance Consultant of Health and Human Service's declaration that [...] DAVIDSON, MG, PHOS, CMP, LIPID, URIC #### [facility] [address] [place] [address] Dr. Sarmad Patino GROUP A STREP CULTUREon S. pyogenes Ag Ql (Unsp spec) Culture Observations: Negative for Group A Streptococcus Normal [facility] Comment on above: Performed By: #### U MAXI, LIPID, MG, CMP, DBIL, PHOS #### [facility] [address] [address] [address] Sarmad Patino INFLUENZA A AND B AGon 01-03 INFLUENZA A AG Negative Normal NEGATIVE SEE COMMENT [facility] Comment on above: Performed By: #### D DAVIDSON, MG, PHOS, CMP, LIPID, URIC #### [facility] [address] [place] [address] Dr. Sarmad Patino INFLUENZA B AG Negative Normal NEGATIVE SEE COMMENT [facility] Comment on above: Performed By: #### D DAVIDSON, MG, PHOS, CMP, LIPID, URIC #### [facility] [address] [place] [address] Dr. Sarmad Patino INTERNAL CONTROLS Within Normal Limits Normal Wi thin Normal Limits [facility] Comment on above: Performed By: #### D DAVIDSON, MG, PHOS, CMP, LIPID, URIC #### [facility] [address] [address] [address] Sarmad Patino PROF 14(COMP METB)on 022 Albumin [Mass/Vol] 2.5 g/dL Critically low 3.4-5.[address] [facility] Comment on above: Performed By: #### U MAXI, LIPID, MG, CMP, DBIL, PHOS #### [facility] [address] [place] [address] Dr. Sarmad Patino Albumin/Globulin [Mass ratio] 0.5 {ratio} Normal [facility] Comment on above: Performed By: #### U MAXI, LIPID, MG, CMP, DBIL, PHOS #### [facility] [address] [place] [address] Dr. Sarmad Patino ALP [Catalytic activity/Vol] 185 U/L Critically high 46-116 [facility] Comment on above: Performed By: #### U MAXI, LIPID, MG, CMP, DBIL, PHOS #### [facility] [address] [place] [address] Dr. Sarmad Patino ALT [Catalytic activity/Vol] 108 U/L Critically high 14-59 [facility] Comment on above: Performed By: #### U MAXI, LIPID, MG, CMP, DBIL, PHOS #### [facility] [address] [address] [address] Sarmad Patino Anion gap [Moles/Vol] 8.3 mmol/L Normal [facility] Comment on above: Performed By: #### U MAXI, LIPID, MG, CMP, DBIL, PHOS #### [facility] [address] [place] [address] Dr. Sarmad Patino AST [Catalytic activity/Vol] 59 U/L Critically high 15-37 [facility] Comment on above: Performed By: #### U MAXI, LIPID, MG, CMP, DBIL, PHOS #### [facility] [address] [place], [place] [id number] Dr. Sarmad Patino Bilirubin [Mass/Vol] 0.6 mg/dL Normal 0.2-1.0 [facility] Comment on above: Performed By: #### U MAXI, LIPID, MG, CMP, DBIL, PHOS #### [facility] [address] [place] [address] Dr. Sarmad Patino Calcium [Mass/Vol] 9.0 mg/dL Normal 8.5-10.1 [facility] Comment on above: Performed By: #### U MAXI, LIPID, MG, CMP, DBIL, PHOS #### [facility] [address] [place] [address] Dr. Sarmad Patino Chloride [Moles/Vol] 100 mmol/L Normal 98-107 [facility] Comment on above: Performed By: #### U MAXI, LIPID, MG, CMP, DBIL, PHOS #### [facility] [address] [place] [address] Dr. Sarmad Patino CO2 [Moles/Vol] 29.0 mmol/L Normal 21.0-32.0 [facility] Comment on above: Performed By: #### U MAXI, LIPID, MG, CMP, DBIL, PHOS #### [facility] [address] [place] [address] Dr. Sarmad Patino Creatinine [Mass/Vol] 1.05 mg/dL Critically high 0.55-1.02 [facility] Comment on above: Performed By: #### U MAXI, LIPID, MG, CMP, DBIL, PHOS #### [facility] [address] [place] [address] Dr. Sarmad Patino EGFR-AF EAST [place] >60 Normal >=60 [facility] Comment on above: Performed By: #### U MAXI, LIPID, MG, CMP, DBIL, PHOS #### [facility] [address] [place] [address] Dr. Sarmad Patino EGFR-NON AF EAST [place] 53 mL/min/1.73m2 Critically low >=60 [facility] Comment on above: Performed By: #### U MAXI, LIPID, MG, CMP, DBIL, PHOS #### [facility] [address] [address] [address] Sarmad Patino Globulin (S) [Mass/Vol] 4.6 g/dL Normal [facility] Comment on above: Performed By: #### U MAXI, LIPID, MG, CMP, DBIL, PHOS #### [facility] [address] [place] [address] Dr. Sarmad Patino Glucose [Mass/Vol] 154 mg/dL Critically high 74-106 [facility] Comment on above: Performed By: #### U MAXI, LIPID, MG, CMP, DBIL, PHOS #### [facility] [address] [place] [address] Dr. Sarmad Patino Potassium [Moles/Vol] 3.3 mmol/L Critically low 3.5-5.1 [facility] Comment on above: Performed By: #### U MAXI, LIPID, MG, CMP, DBIL, PHOS #### [facility] [address] [place] [address] Dr. Sarmad Patino Protein [Mass/Vol] 7.1 g/dL Normal 6.4-8.2 [facility] Comment on above: Performed By: #### U MAXI, LIPID, MG, CMP, DBIL, PHOS #### [facility] [address] [place] [address] Dr. Sarmad Patino Sodium [Moles/Vol] 134 mmol/L Critically low 136-145 [facility] Comment on above: Performed By: #### U MAXI, LIPID, MG, CMP, DBIL, PHOS #### [facility] [address] [place] [address] Dr. Sarmad Patino Urea nitrogen [Mass/Vol] 24.0 mg/dL Critically high 7.0-18.0 [facility] Comment on above: Performed By: #### U MAXI, LIPID, MG, CMP, DBIL, PHOS #### [facility] [address] [place] [address] Dr. Sarmad Patino Urea nitrogen/Creatinine [Mass ratio] 22.9 mg/mg Normal [facility] Comment on above: Performed By: #### U MAXI, LIPID, MG, CMP, DBIL, PHOS #### [facility] [address] [place], [place] [address] Dr. Sarmad Patino STREPT SCREENon 01-03-2022 STREP SCREEN A Negative Normal NEGATIVE [facility] Comment on above: Performed By: #### U MAXI, LIPID, MG, CMP, DBIL, PHOS #### [facility] [address] [place], [place] [address] Dr. Sarmad Patino XR CHEST 2 Von [...] MAYRA WHITESIDE Date: 2022-01-03 03:[address] [facility] Quick Strepon 12-28-2021 S. pyogenes Org specific cx Ql (Throat) Negative [facility] Other Quick Strep [facility] Other SARS-CoV-2 (COVID-19) RNA NA A+probe Ql (Resp)on 12-25-2021 SARS-CoV-2 (COVID-19) RNA MUARLI+probe Ql (Unsp spec) Negative [facility] Other FK506 (TACROLIMUS) WHOLE BLO ODon 12-08-2021 Tacrolimus (FK506), Blood 6.6 ng/mL Normal 2.0-20.0 [facility] Comment on above: Result Comment: Trou gh (immediately following transplant) 15.0 . Trough (steady state, 2 weeks or more after transplant): 3.0 - 8.0 . Performed by LC-MS/MS technology. Performed By: #### D DAVIDSON, MG, PHOS, CMP, LIPID, URIC #### [facility] [address] [place] [address] Dr. Sarmad Patino RAPAMUNE(SIROLIMUS)on 2021 Rapamune(Sirolimus), whole blood 9.6 ng/mL Normal 3.0-20.0 [facility] Comment on above: Result Comment: Perf ormed by LC/MS-MS technology . This test was developed and its performance characteristics determined by [employer]. It has not been cleared or approved by the Food and Drug Administration. Performed By: #### D DAVIDSON, MG, PHOS, CMP, LIPID, URIC #### [facility] [address] [place] [address] Dr. Sarmad Patino BILIRUBIN CONJUGATED (DIRECT )on 12-05-2021 BILI, CONJUGATED 0.1 mg/dL Normal 0.0-0.2 [facility] Comment on above: Performed By: #### D DAVIDSON, MG, PHOS, CMP, LIPID, URIC #### [facility] [address] [place] [address] Dr. Sarmad Patino CBC W MANUAL DIFFon 12-06-19 22 ATYPICAL LYMPH # Normal [facility] Comment on above: Performed By: #### D DAVIDSON, MG, PHOS, CMP, LIPID, URIC #### [facility] [address] [place] [address] Dr. Sarmad Patino ATYPICAL LYMPH % Normal [facility] Comment on above: Performed By: #### D DAVIDSON, MG, PHOS, CMP, LIPID, URIC #### [facility] [address] [place] [address] Dr. Sarmad Patino BAND # Normal 0.0-0.[address] [facility] Comment on above: Performed By: #### D DAVIDSON, MG, PHOS, CMP, LIPID, URIC #### [facility] [address] [place] [address] Dr. Sarmad Patino BAND % Normal 0-[address] [facility] Comment on above: Performed By: #### D DAVIDSON, MG, PHOS, CMP, LIPID, URIC #### [facility] [address] [address] [address] Sarmad Patino BASOM # 0.00 103/ul Normal 0.00-0.10 [facility] Comment on above: Performed By: #### D DAVIDSON, MG, PHOS, CMP, LIPID, URIC #### [facility] [address] [address] [address] Sarmad Patino BASOM % 0.0 % Critically low 0.2-2.0 [facility] Comment on above: Performed By: #### D DAVIDSON, MG, PHOS, CMP, LIPID, URIC #### [facility] [address] [address] [address] Sarmad Patino BLAST # Normal [facility] Comment on above: Performed By: #### D DAVIDSON, MG, PHOS, CMP, LIPID, URIC #### [facility] [address] [place] [address] Dr. Sarmad Patino BLAST % Normal [facility] Comment on above: Performed By: #### D DAVIDSON, MG, PHOS, CMP, LIPID, URIC #### [facility] [address] [place] [address] Dr. Sarmad Patino CORRECTED WBC Normal 4.0-11.0 [facility] Comment on above: Performed By: #### D DAVIDSON, MG, PHOS, CMP, LIPID, URIC #### [facility] [address] [place] [address] Dr. Sarmad Patino EOS # 0.15 103/ul Normal 0.00-0.70 [facility] Comment on above: Performed By: #### D DAVIDSON, MG, PHOS, CMP, LIPID, URIC #### [facility] [address] [address] [address] Sarmad Patino EOS% 2.0 % Normal 0.9-7.0 [facility] Comment on above: Performed By: #### D DAVIDSON, MG, PHOS, CMP, LIPID, URIC #### [facility] [address] [address] [address] Sarmad Patino HCT 47.5 % Normal 36.0-48.0 [facility] Comment on above: Performed By: #### D DAVIDSON, MG, PHOS, CMP, LIPID, URIC #### [facility] [address] [address] [address] Sarmad Patino HGB 15.6 g/dl Normal 12.0-16.0 [facility] Comment on above: Performed By: #### D DAVIDSON, MG, PHOS, CMP, LIPID, URIC #### [facility] [address] [address] [address] Sarmad Patino LYMPHM # 1.46 103/ul Normal 1.20-3.80 [facility] Comment on above: Performed By: #### D DAVIDSON, MG, PHOS, CMP, LIPID, URIC #### [facility] [address] [place] [address] Dr. Sarmad Patino LYMPHM% 19.0 % Critically low 20.5-60.0 [facility] Comment on above: Performed By: #### D DAVIDSON, MG, PHOS, CMP, LIPID, URIC #### [facility] [address] [place] [address] Dr. Sarmad Patino MCH 28.9 pg Normal 26.7-34.0 [facility] Comment on above: Performed By: #### D DAVIDSON, MG, PHOS, CMP, LIPID, URIC #### [facility] [address] [place] [address] Dr. Sarmad Patino MCHC 32.8 g/dl Normal 29.9-35.2 [facility] Comment on above: Performed By: #### D DAVIDSON, MG, PHOS, CMP, LIPID, URIC #### [facility] [address] [place] [address] Dr. Sarmad Patino MCV 88.1 fL Normal 81.0-99.0 [facility] Comment on above: Performed By: #### D DAVIDSON, MG, PHOS, CMP, LIPID, URIC #### [facility] [address] [place] [address] Dr. Sarmad Patino METAMYELOCYTE # Normal [facility] Comment on above: Performed By: #### D DAVIDSON, MG, PHOS, CMP, LIPID, URIC #### [facility] [address] [address] [address] Sarmad Patino METAMYELOCYTE % Normal [facility] Comment on above: Performed By: #### D DAVIDSON, MG, PHOS, CMP, LIPID, URIC #### [facility] [address] [address] [address] Sarmad Patino MONOM# 0.85 103/ul Critically high 0.30-0.80 [facility] Comment on above: Performed By: #### D DAVIDSON, MG, PHOS, CMP, LIPID, URIC #### [facility] [address] [address] [address] Sarmad Patino MONOM% 11.0 % Normal 1.7-12.0 [facility] Comment on above: Performed By: #### D DAVIDSON, MG, PHOS, CMP, LIPID, URIC #### [facility] [address] [place] [address] Dr. Sarmad Patino MPV 11.3 fL Normal 9.5-13.5 [facility] Comment on above: Performed By: #### D DAVIDSON, MG, PHOS, CMP, LIPID, URIC #### [facility] [address] [place] [address] Dr. Sarmad Patino MYELOCYTE # Normal [facility] Comment on above: Performed By: #### D DAVIDSON, MG, PHOS, CMP, LIPID, URIC #### [facility] [address] [place] [address] Dr. Sarmad Patino MYELOCYTE % Normal [facility] Comment on above: Performed By: #### D DAVIDSON, MG, PHOS, CMP, LIPID, URIC #### [facility] [address] [place] [address] Dr. Sarmad Patino NRBC Normal [facility] Comment on above: Performed By: #### D DAVIDSON, MG, PHOS, CMP, LIPID, URIC #### [facility] [address] [place] [address] Dr. Sarmad Patino PLT 214 103/ul Normal 150-[address] [facility] Comment on above: Performed By: #### D DAVIDSON, MG, PHOS, CMP, LIPID, URIC #### [facility] [address] [address] [address] Sarmad Patino RBC 5.39 106/ul Normal 4.20-5.40 [facility] Comment on above: Performed By: #### D DAVIDSON, MG, PHOS, CMP, LIPID, URIC #### [facility] [address] [place] [address] Dr. Sarmad Patino RDW 13.8 % Normal 11.0-15.0 [facility] Comment on above: Performed By: #### D DAVIDSON, MG, PHOS, CMP, LIPID, URIC #### [facility] [address] [place] [address] Dr. Sarmad Patino SEG # 5.24 103/ul Normal 1.40-6.50 [facility] Comment on above: Performed By: #### D DAVIDSON, MG, PHOS, CMP, LIPID, URIC #### [facility] [address] [place] [address] Dr. Sarmad Patino SEG % 68.0 % Normal 43.0-75.0 [facility] Comment on above: Performed By: #### D DAVIDSON, MG, PHOS, CMP, LIPID, URIC #### [facility] [address] [place] [address] Dr. Sarmad Patino WBC 7.7 103/ul Normal 4.0-11.0 [facility] Comment on above: Performed By: #### D DAVIDSON, MG, PHOS, CMP, LIPID, URIC #### [facility] [address] [place] [address] Dr. Sarmad Patino LIPID PROFILEon 12-05-2021 CHOL-HDL RATIO NORM SEE BELOW Normal [facility] Comment on above: Result Comment: 3.3 - 4.4 LOW RISK 4.4 - 7.1 AVERAGE RISK 7.1 - 11.0 MODERATE RISK >11.0 HIGH RISK Performed By: #### D DAVIDSON, MG, PHOS, CMP, LIPID, URIC #### [facility] [address] [place] [address] Dr. Sarmad Patino Cholesterol [Mass/Vol] 170 mg/dL Normal <=[address] [facility] Comment on above: Performed By: #### D DAVIDSON, MG, PHOS, CMP, LIPID, URIC #### [facility] [address] [address] [address] Sarmad Patino Cholesterol in HDL [Mass/Vol] 54 mg/dL Normal 40-60 [facility] Comment on above: Performed By: #### D DAVIDSON, MG, PHOS, CMP, LIPID, URIC #### [facility] [address] [address] [address] Sarmad Patino Cholesterol in LDL [Mass/Vol] 92.2 mg/dL Normal [facility] Comment on above: Performed By: #### D DAVIDSON, MG, PHOS, CMP, LIPID, URIC #### [facility] [address] [address] [address] Sarmad Patino Cholesterol.total/Cho lesterol in HDL [Mass ratio] 3.1 {ratio} Normal [facility] Comment on above: Performed By: #### D DAVIDSON, MG, PHOS, CMP, LIPID, URIC #### [facility] [address] [address] [address] Sarmad Patino HDL NORMAL > or = 60 mg/dl - LO W CARDIOVASCULAR RISK <40 mg/dl - HIGH CARDIOVASCULAR RISK Normal [facility] Comment on above: Performed By: #### D DAVIDSON, MG, PHOS, CMP, LIPID, URIC #### [facility] [address] [address] [address] Sarmad Patino LDL CALC NORMAL SEE BELOW Normal [facility] Comment on above: Result Comment: <100 mg/dl OPTIMAL 100 - 129 mg/dl NEAR OR ABOVE OPTIMAL 130 - 159 mg/dl BORDERLINE HIGH 160 - 189 mg/dl HIGH >190 mg/dl VERY HIGH Performed By: #### D DAVIDSON, MG, PHOS, CMP, LIPID, URIC #### [facility] [address] [address] [address] Sarmad Patino Triglyceride [Mass/Vol] 119 mg/dL Normal <=150 [facility] Comment on above: Performed By: #### D DAVIDSON, MG, PHOS, CMP, LIPID, URIC #### [facility] [address] [address] [address] Sarmad Patino VLDL CALC 23.8 mg/dL Normal [facility] Comment on above: Performed By: #### D DAVIDSON, MG, PHOS, CMP, LIPID, URIC #### [facility] [address] [place] [address] Dr. Sarmad Patino MAGNESIUMon 12-05-2021 Magnesium [Mass/Vol] 1.8 mg/dL Normal 1.8-2.4 [facility] Comment on above: Performed By: #### D DAVIDSON, MG, PHOS, CMP, LIPID, URIC #### [facility] [address] [place] [address] Dr. Sarmad Patino PHOSPHORUSon 12-05-2021 Phosphate [Mass/Vol] 3.8 mg/dL Normal 2.6-4.7 [facility] Comment on above: Performed By: #### D DAVIDSON, MG, PHOS, CMP, LIPID, URIC #### [facility] [address] [place] [address] Dr. Sarmad Patino PROF 14(COMP METB)on 022 Albumin [Mass/Vol] 3.7 g/dL Normal 3.4-5.0 [facility] Comment on above: Performed By: #### D DAVIDSON, MG, PHOS, CMP, LIPID, URIC #### [facility] [address] [place] [address] Dr. Sarmad Patino Albumin/Globulin [Mass ratio] 1.0 {ratio} Normal [facility] Comment on above: Performed By: #### D DAVIDSON, MG, PHOS, CMP, LIPID, URIC #### [facility] [address] [place] [address] Dr. Sarmad Patino ALP [Catalytic activity/Vol] 151 U/L Critically high 46-[address] [facility] Comment on above: Performed By: #### D DAVIDSON, MG, PHOS, CMP, LIPID, URIC #### [facility] [address] [place] [address] Dr. Sarmad Patino ALT [Catalytic activity/Vol] 27 U/L Normal 14-59 [facility] Comment on above: Performed By: #### D DAVIDSON, MG, PHOS, CMP, LIPID, URIC #### [facility] [address] [place] [address] Dr. Sarmad Patino Anion gap [Moles/Vol] 14.5 mmol/L Normal [facility] Comment on above: Performed By: #### D DAVIDSON, MG, PHOS, CMP, LIPID, URIC #### [facility] [address] [place] [address] Dr. Sarmad Patino AST [Catalytic activity/Vol] 25 U/L Normal 15-37 [facility] Comment on above: Performed By: #### D DAVIDSON, MG, PHOS, CMP, LIPID, URIC #### [facility] [address] [place] [address] Dr. Sarmad Patino Bilirubin [Mass/Vol] 0.4 mg/dL Normal 0.2-1.0 [facility] Comment on above: Performed By: #### D DAVIDSON, MG, PHOS, CMP, LIPID, URIC #### [facility] [address] [place] [address] Dr. Sarmad Patino Calcium [Mass/Vol] 9.4 mg/dL Normal 8.5-10.1 [facility] Comment on above: Performed By: #### D DAVIDSON, MG, PHOS, CMP, LIPID, URIC #### [facility] [address] [place] [address] Dr. Sarmad Patino Chloride [Moles/Vol] 103 mmol/L Normal 98-107 [facility] Comment on above: Performed By: #### D DAVIDSON, MG, PHOS, CMP, LIPID, URIC #### [facility] [address] [place] [address] Dr. Sarmad Patino CO2 [Moles/Vol] 26.5 mmol/L Normal 21.0-32.0 [facility] Comment on above: Performed By: #### D DAVIDSON, MG, PHOS, CMP, LIPID, URIC #### [facility] [address] [place] [address] Dr. Sarmad Patino Creatinine [Mass/Vol] 0.87 mg/dL Normal 0.55-1.02 [facility] Comment on above: Performed By: #### D DAVIDSON, MG, PHOS, CMP, LIPID, URIC #### [facility] [address] [address] [address] Sarmad Patino EGFR-AF [place] >60 Normal >=60 [facility] Comment on above: Performed By: #### D DAVIDSON, MG, PHOS, CMP, LIPID, URIC #### [facility] [address] [address] [address] Sarmad Patino EGFR-NON AF E[place] >60 Normal >=[address] [facility] Comment on above: Performed By: #### D DAVIDSON, MG, PHOS, CMP, LIPID, URIC #### [facility] [address] [address] [address] Sarmad Patino Globulin (S) [Mass/Vol] 3.8 g/dL Normal [facility] Comment on above: Performed By: #### D DAVIDSON, MG, PHOS, CMP, LIPID, URIC #### [facility] [address] [address] [address] Sarmad Patino Glucose [Mass/Vol] 104 mg/dL Normal 74-106 [facility] Comment on above: Performed By: #### D DAVIDSON, MG, PHOS, CMP, LIPID, URIC #### [facility] [address] [address] [address] Sarmad Patino Potassium [Moles/Vol] 4.0 mmol/L Normal 3.5-5.[address] [facility] Comment on above: Performed By: #### D DAVIDSON, MG, PHOS, CMP, LIPID, URIC #### [facility] [address] [address] [address] Sarmad Patino Protein [Mass/Vol] 7.5 g/dL Normal 6.4-8.2 [facility] Comment on above: Performed By: #### D DAVIDSON, MG, PHOS, CMP, LIPID, URIC #### [facility] Laboratory [address] [address] [address] Sarmad Patino Sodium [Moles/Vol] 140 mmol/L Normal 136-145 [facility] Comment on above: Performed By: #### D DAVIDSON, MG, PHOS, CMP, LIPID, URIC #### [facility] [address] [place] [address] Dr. Sarmad Patino Urea nitrogen [Mass/Vol] 19.0 mg/dL Critically high 7.0-18.0 [facility] Comment on above: Performed By: #### D DAVIDSON, MG, PHOS, CMP, LIPID, URIC #### [facility] [address] [place] [address] Dr. Sarmad Patino Urea nitrogen/Creatinine [Mass ratio] 21.8 mg/mg Normal [facility] Comment on above: Performed By: #### D DAVIDSON, MG, PHOS, CMP, LIPID, URIC #### [facility] [address] [place] [address] Dr. Sarmad Patino URIC ACID SERUMon 12-05-2021 Urate [Mass/Vol] 5.2 mg/dL Normal 2.6-6.0 [facility] Comment on above: Performed By: #### D DAVIDSON, MG, PHOS, CMP, LIPID, URIC #### [facility] [address] [place] [address] Dr. Sarmad Patino EVEROLIMU, WHOLE BLOODon EVEROLIMUS 7.0 ng/mL Normal 3.0-8.0 [facility] Comment on above: Result Comment: Perf ormed by LC-MS/MS technology. Performed By: #### D DAVIDSON, MG, PHOS, CMP, LIPID, URIC #### [facility] [address] [place] [address] Dr. Sarmad Patino FK506 (TACROLIMUS) WHOLE BLO ODon 11-10-2021 Tacrolimus (FK506), Blood 6.4 ng/mL Normal 2.0-20.0 [facility] Comment on above: Result Comment: Trou gh (immediately following transplant) 15.0 . Trough (steady state, 2 weeks or more after transplant): 3.0 - 8.0 . Performed by LC-MS/MS technology. Performed By: #### D DAVIDSON, MG, PHOS, CMP, LIPID, URIC #### [facility] [address] [place] [address] Dr. Sarmad Patino BK VIRUS PCR QUANTon 022 BKV DNA QUANT PCR PLASMA Negative Normal Negative [facility] Comment on above: Result Comment: No B K DNA detected. . The linear range of the assay is 22 - 100,000,000 IU/mL. Performed By: #### U MAXI, LIPID, MG, CMP, DBIL, PHOS #### [facility] [address] [place] [address] Dr. Sarmad Patino Log10 BKV DNA Plasma Normal [facility] Comment on above: Performed By: #### U MAXI, LIPID, MG, CMP, DBIL, PHOS #### [facility] [address] [place] [address] Dr. Sarmad Patino BILIRUBIN CONJUGATED (DIRECT )on 11-07-2021 BILI, CONJUGATED 0.1 mg/dL Normal 0.0-0.2 [facility] Comment on above: Performed By: #### D DAVIDSON, MG, PHOS, CMP, LIPID, URIC #### [facility] [address] [place] [address] Dr. Sarmad Patino CBC AUTO DIFFon 11-07-2021 BASO # 0.0 103/ul Normal 0.0-0.1 [facility] Comment on above: Performed By: #### D DAVIDSON, MG, PHOS, CMP, LIPID, URIC #### [facility] [address] [place] [address] Dr. Sarmad Patino Basophils/100 WBC (Bld) 0.3 % Normal 0.2-2.0 [facility] Comment on above: Performed By: #### D DAVIDSON, MG, PHOS, CMP, LIPID, URIC #### [facility] [address] [place] [address] Dr. Sarmad Patino EO # 0.1 103/ul Normal 0.0-0.[address] [facility] Comment on above: Performed By: #### D DAVIDSON, MG, PHOS, CMP, LIPID, URIC #### [facility] [address] [place] [address] Dr. Sarmad Patino Eosinophils/100 WBC (Bld) 2.1 % Normal 0.9-7.0 [facility] Comment on above: Performed By: #### D DAVIDSON, MG, PHOS, CMP, LIPID, URIC #### [facility] [address] [place] [address] Dr. Sarmad Patino Erythrocyte distribution width (RBC) [Ratio] 13.5 % Normal 11.0-15.[address] [facility] Comment on above: Performed By: #### D DAVIDSON, MG, PHOS, CMP, LIPID, URIC #### [facility] [address] [place] [address] Dr. Sarmad Patino Hematocrit (Bld) [Volume fraction] 46.7 % Normal 36.0-48.[address] [facility] Comment on above: Performed By: #### D DAVIDSON, MG, PHOS, CMP, LIPID, URIC #### [facility] [address] [place] [address] Dr. Sarmad Patino Hemoglobin (Bld) [Mass/Vol] 15.1 g/dL Normal 12.0-16.0 [facility] Comment on above: Performed By: #### D DAVIDSON, MG, PHOS, CMP, LIPID, URIC #### [facility] [address] [place] [address] Dr. Sarmad Patino IG # 0.03 10e3/ul Normal 0.00-0.[address] [facility] Comment on above: Performed By: #### D DAVIDSON, MG, PHOS, CMP, LIPID, URIC #### [facility] [address] [place] [address] Dr. Sarmad Patino IG % 0.5 % Normal 0.0-0.[address] [facility] Comment on above: Performed By: #### D DAVIDSON, MG, PHOS, CMP, LIPID, URIC #### [facility] [address] [place] [address] Dr. Sarmad Patino LYMPH # 1.3 103/ul Normal 1.2-3.[address] [facility] Comment on above: Performed By: #### D DAVIDSON, MG, PHOS, CMP, LIPID, URIC #### [facility] [address] [place] [address] Dr. Sarmad Patino Lymphocytes/100 WBC (Bld) 19.9 % Critically low 20.5-60.[address] [facility] Comment on above: Performed By: #### D DAVIDSON, MG, PHOS, CMP, LIPID, URIC #### [facility] [address] [place] [address] Dr. Sarmad Patino MANUAL DIFF REQ NO Normal [facility] Comment on above: Performed By: #### D DAVIDSON, MG, PHOS, CMP, LIPID, URIC #### [facility] [address] [place] [address] Dr. Sarmad Patino MCH (RBC) [Entitic mass] 28.6 pg Normal 26.7-34.[address] [facility] Comment on above: Performed By: #### D DAVIDSON, MG, PHOS, CMP, LIPID, URIC #### [facility] [address] [place] [address] Dr. Sarmad Patino MCHC (RBC) [Mass/Vol] 32.3 g/dL Normal 29.9-35.[address] [facility] Comment on above: Performed By: #### D DAVIDSON, MG, PHOS, CMP, LIPID, URIC #### [facility] [address] [place] [address] Dr. Sarmad Patino MCV (RBC) [Entitic vol] 88.4 fL Normal 81.0-99.[address] [facility] Comment on above: Performed By: #### D DAVIDSON, MG, PHOS, CMP, LIPID, URIC #### [facility] [address] [place] [address] Dr. Sarmad Patino MONO # 0.8 103/ul Normal 0.3-0.[address] [facility] Comment on above: Performed By: #### D DAVIDSON, MG, PHOS, CMP, LIPID, URIC #### [facility] [address] [place] [address] Dr. Sarmad Patino Monocytes/100 WBC (Bld) 12.9 % Critically high 1.7-12.[address] [facility] Comment on above: Performed By: #### D DAVIDSON, MG, PHOS, CMP, LIPID, URIC #### [facility] [address] [place] [address] Dr. Sarmad Patino NEUT # 4.0 103/ul Normal 1.4-6.[address] [facility] Comment on above: Performed By: #### D DAVIDSON, MG, PHOS, CMP, LIPID, URIC #### [facility] [address] [address] [address] Sarmad Patino Neutrophils/100 WBC (Bld) 64.3 % Normal 43.0-75.0 [facility] Comment on above: Performed By: #### D DAVIDSON, MG, PHOS, CMP, LIPID, URIC #### [facility] [address] [address] [address] Sarmad Patino Platelet mean volume (Bld) [Entitic vol] 11.3 fL Normal 9.5-13.5 [facility] Comment on above: Performed By: #### D DAVIDSON, MG, PHOS, CMP, LIPID, URIC #### [facility] [address] [place] [address] Dr. Sarmad Patino PLT 241 103/ul Normal 150-450 [facility] Comment on above: Performed By: #### D DAVIDSON, MG, PHOS, CMP, LIPID, URIC #### [facility] [address] [address] [address] Sarmad Patino RBC 5.28 106/ul Normal 4.20-5.[address] [facility] Comment on above: Performed By: #### D DAVIDSON, MG, PHOS, CMP, LIPID, URIC #### [facility] [address] [place] [address] Dr. Sarmad Patino WBC 6.3 103/ul Normal 4.0-11.0 [facility] Comment on above: Performed By: #### D DAVIDSON, MG, PHOS, CMP, LIPID, URIC #### [facility] [address] [place] [address] Dr. Sarmad Patino GLYCOHEMOGLOBIN A1Con 2021 ADA RECOMMENDATION SEE BELOW Normal [facility] Comment on above: Result Comment: ADA RECOMMENDED LIMIT 4.0 - 6.0 ADA THERAPEUTIC TARGET < 7.0 ACTION SUGGESTED > 7.0 Performed By: #### D DAVIDSON, MG, PHOS, CMP, LIPID, URIC #### [facility] [address] [place] [address] Dr. Sarmad aPtino Glucose [Mass/Vol] 120 mg/dL Normal [facility] Comment on above: Performed By: #### D DAVIDSON, MG, PHOS, CMP, LIPID, URIC #### [facility] [address] [address] [address] Sarmad Patino HbA1c (Bld) [Mass fraction] 5.8 % Normal 4.5-6.2 [facility] Comment on above: Performed By: #### D DAVIDSON, MG, PHOS, CMP, LIPID, URIC #### [facility] [address] [address] [address] Sarmad Patino LIPID PROFILEon 11-07-2021 CHOL-HDL RATIO NORM SEE BELOW Normal [facility] Comment on above: Result Comment: 3.3 - 4.4 LOW RISK 4.4 - 7.1 AVERAGE RISK 7.1 - 11.0 MODERATE RISK >11.0 HIGH RISK Performed By: #### D DAVIDSON, MG, PHOS, CMP, LIPID, URIC #### [facility] [address] [place] [address] Dr. Sarmad Patino Cholesterol [Mass/Vol] 157 mg/dL Normal <=200 [facility] Comment on above: Performed By: #### D DAVIDSON, MG, PHOS, CMP, LIPID, URIC #### [facility] [address] [place] [address] Dr. Sarmad Patino Cholesterol in HDL [Mass/Vol] 48 mg/dL Normal 40-60 [facility] Comment on above: Performed By: #### D DAVIDSON, MG, PHOS, CMP, LIPID, URIC #### [facility] [address] [address] [address] Sarmad Patino Cholesterol in LDL [Mass/Vol] 89.6 mg/dL Normal [facility] Comment on above: Performed By: #### D DAVIDSON, MG, PHOS, CMP, LIPID, URIC #### [facility] [address] [place] [address] Dr. Sarmad aPtino Cholesterol.total/Cho lesterol in HDL [Mass ratio] 3.3 {ratio} Normal [facility] Comment on above: Performed By: #### D DAVIDSON, MG, PHOS, CMP, LIPID, URIC #### [facility] [address] [address] [address] Sarmad Patino HDL NORMAL > or = 60 mg/dl - LO W CARDIOVASCULAR RISK <40 mg/dl - HIGH CARDIOVASCULAR RISK Normal [facility] Comment on above: Performed By: #### D DAVIDSON, MG, PHOS, CMP, LIPID, URIC #### [facility] [address] [address] [address] Sarmad Patino LDL CALC NORMAL SEE BELOW Normal [facility] Comment on above: Result Comment: <100 mg/dl OPTIMAL 100 - 129 mg/dl NEAR OR ABOVE OPTIMAL 130 - 159 mg/dl BORDERLINE HIGH 160 - 189 mg/dl HIGH >190 mg/dl VERY HIGH Performed By: #### D DAVIDSON, MG, PHOS, CMP, LIPID, URIC #### [facility] [address] [place] [address] Dr. Sarmad Patino Triglyceride [Mass/Vol] 97 mg/dL Normal <=[address] [facility] Comment on above: Performed By: #### D DAVIDSON, MG, PHOS, CMP, LIPID, URIC #### [facility] [address] [address] [address] Sarmad Patino VLDL CALC 19.4 mg/dL Normal [facility] Comment on above: Performed By: #### D DAVIDSON, MG, PHOS, CMP, LIPID, URIC #### [facility] [address] [place] [address] Dr. Sarmad Patino MAGNESIUMon 11-07-2021 Magnesium [Mass/Vol] 1.9 mg/dL Normal 1.8-2.[address] [facility] Comment on above: Performed By: #### D DAVIDSON, MG, PHOS, CMP, LIPID, URIC #### [facility] [address] [address] [address] Sarmad Patino PHOSPHORUSon 11-07-2021 Phosphate [Mass/Vol] 3.4 mg/dL Normal 2.6-4.[address] [facility] Comment on above: Performed By: #### D DAVIDSON, MG, PHOS, CMP, LIPID, URIC #### [facility] [address] [place] [address] Dr. Sarmad Patino PROF 14(COMP METB)on 022 Albumin [Mass/Vol] 3.6 g/dL Normal 3.4-5.0 [facility] Comment on above: Performed By: #### D DAVIDSON, MG, PHOS, CMP, LIPID, URIC #### [facility] [address] [place] [address] Dr. Sarmad Patino Albumin/Globulin [Mass ratio] 0.9 {ratio} Normal [facility] Comment on above: Performed By: #### D DAVIDSON, MG, PHOS, CMP, LIPID, URIC #### [facility] [address] [address] [address] Sarmad Patino ALP [Catalytic activity/Vol] 158 U/L Critically high 46-116 [facility] Comment on above: Performed By: #### D DAVIDSON, MG, PHOS, CMP, LIPID, URIC #### [facility] [address] [place] [address] Dr. Sarmad Patino ALT [Catalytic activity/Vol] 23 U/L Normal 14-59 [facility] Comment on above: Performed By: #### D DAVIDSON, MG, PHOS, CMP, LIPID, URIC #### [facility] [address] [address] [address] Sarmad Patino Anion gap [Moles/Vol] 14.8 mmol/L Normal [facility] Comment on above: Performed By: #### D DAVIDSON, MG, PHOS, CMP, LIPID, URIC #### [facility] [address] [place] [address] Dr. Sarmad Patino AST [Catalytic activity/Vol] 18 U/L Normal 15-37 [facility] Comment on above: Performed By: #### D DAVIDSON, MG, PHOS, CMP, LIPID, URIC #### [facility] [address] [place] [address] Dr. Sarmad Patino Bilirubin [Mass/Vol] 0.4 mg/dL Normal 0.2-1.0 [facility] Comment on above: Performed By: #### D DAVIDSON, MG, PHOS, CMP, LIPID, URIC #### [facility] [address] [place] [address] Dr. Sarmad Patino Calcium [Mass/Vol] 9.3 mg/dL Normal 8.5-10.1 [facility] Comment on above: Performed By: #### D DAVIDSON, MG, PHOS, CMP, LIPID, URIC #### [facility] [address] [address] [address] Sarmad Patino Chloride [Moles/Vol] 105 mmol/L Normal 98-107 [facility] Comment on above: Performed By: #### D DAVIDSON, MG, PHOS, CMP, LIPID, URIC #### [facility] [address] [address] [address] Sarmad Patino CO2 [Moles/Vol] 26.1 mmol/L Normal 21.0-32.0 [facility] Comment on above: Performed By: #### D DAVIDSON, MG, PHOS, CMP, LIPID, URIC #### [facility] [address] [place] [address] Dr. Sarmad Patino Creatinine [Mass/Vol] 0.84 mg/dL Normal 0.55-1.02 [facility] Comment on above: Performed By: #### D DAVIDSON, MG, PHOS, CMP, LIPID, URIC #### [facility] [address] [address] [address] Sarmad Patino EGFR-AF [place]AST [place] >60 Normal >=60 [facility] Comment on above: Performed By: #### D DAVIDSON, MG, PHOS, CMP, LIPID, URIC #### [facility] [address] [place] [address] Dr. Sarmad Patino EGFR-NON AF [place] >60 Normal >=60 [facility] Comment on above: Performed By: #### D DAVIDSON, MG, PHOS, CMP, LIPID, URIC #### [facility] [address] [address] [address] Sarmad Patino Globulin (S) [Mass/Vol] 3.8 g/dL Normal [facility] Comment on above: Performed By: #### D DAVIDSON, MG, PHOS, CMP, LIPID, URIC #### [facility] [address] [address] [address] Sarmad Patino Glucose [Mass/Vol] 97 mg/dL Normal 74-106 [facility] Comment on above: Performed By: #### D DAVIDSON, MG, PHOS, CMP, LIPID, URIC #### [facility] [address] [address] [address] Sarmad Patino Potassium [Moles/Vol] 3.9 mmol/L Normal 3.5-5.[address] [facility] Comment on above: Performed By: #### D DAVIDSON, MG, PHOS, CMP, LIPID, URIC #### [facility] [address] [place] [address] Dr. Sarmad Patino Protein [Mass/Vol] 7.4 g/dL Normal 6.4-8.2 [facility] Comment on above: Performed By: #### D DAVIDSON, MG, PHOS, CMP, LIPID, URIC #### [facility] [address] [place] [address] Dr. Sarmad Patino Sodium [Moles/Vol] 142 mmol/L Normal 136-145 [facility] Comment on above: Performed By: #### D DAVIDSON, MG, PHOS, CMP, LIPID, URIC #### [facility] [address] [address] [address] Sarmad Patino Urea nitrogen [Mass/Vol] 21.0 mg/dL Critically high 7.0-18.0 [facility] Comment on above: Performed By: #### D DAVIDSON, MG, PHOS, CMP, LIPID, URIC #### [facility] [address] [place] [address] Dr. Sarmad Patino Urea nitrogen/Creatinine [Mass ratio] 25.0 mg/mg Normal [facility] Comment on above: Performed By: #### D DAVIDSON, MG, PHOS, CMP, LIPID, URIC #### [facility] [address] [place] [address] Dr. Sarmad Patino URIC ACID SERUMon 11-07-2021 Urate [Mass/Vol] 5.1 mg/dL Normal 2.6-6.0 [facility] Comment on above: Performed By: #### D DAVIDSON, MG, PHOS, CMP, LIPID, URIC #### [facility] [address] [place] [address] Dr. Sarmad Patino BOX TEST SENT OUTon 10-16-19 22 SENT TO REF LAB 10/15/2021 Normal [facility] Comment on above: Performed By: #### D DAVIDSON, MG, PHOS, CMP, LIPID, URIC #### [facility] [address] [place] [address] Dr. Sarmad Patino EVEROLIMU, WHOLE BLOODon EVEROLIMUS 6.7 ng/mL Normal 3.0-8.0 [facility] Comment on above: Result Comment: Perf ormed by LC-MS/MS technology. Performed By: #### D DAVIDSON, MG, PHOS, CMP, LIPID, URIC #### [facility] [address] [place] [address] Dr. Sarmad Patino FK506 (TACROLIMUS) WHOLE BLO ODon 10-10-2021 Tacrolimus (FK506), Blood 5.9 ng/mL Normal 2.0-20.0 [facility] Comment on above: Result Comment: Trou gh (immediately following transplant) 15.0 . Trough (steady state, 2 weeks or more after transplant): 3.0 - 8.0 . Performed by LC-MS/MS technology. Performed By: #### D DAVIDSON, MG, PHOS, CMP, LIPID, URIC #### [facility] [address] [place] [address] Dr. Sarmad Patino BILIRUBIN CONJUGATED (DIRECT )on 10-08-2021 BILI, CONJUGATED 0.1 mg/dL Normal 0.0-0.2 [facility] Comment on above: Performed By: #### U MAXI, LIPID, MG, CMP, DBIL, PHOS #### [facility] [address] [place] [address] Dr. Sarmad Patino CBC AUTO DIFFon 10-08-2021 BASO # 0.0 103/ul Normal 0.0-0.1 [facility] Comment on above: Performed By: #### D DAVIDSON, MG, PHOS, CMP, LIPID, URIC #### [facility] [address] [place] [address] Dr. Sarmad Patino Basophils/100 WBC (Bld) 0.1 % Critically low 0.2-2.0 [facility] Comment on above: Performed By: #### D DAVIDSON, MG, PHOS, CMP, LIPID, URIC #### [facility] [address] [place] [address] Dr. Sarmad Patino EO # 0.1 103/ul Normal 0.0-0.7 [facility] Comment on above: Performed By: #### D DAVIDSON, MG, PHOS, CMP, LIPID, URIC #### [facility] [address] [place] [address] Dr. Sarmad Patino Eosinophils/100 WBC (Bld) 1.4 % Normal 0.9-7.0 [facility] Comment on above: Performed By: #### D DAVIDSON, MG, PHOS, CMP, LIPID, URIC #### [facility] [address] [place] [address] Dr. Sarmad Patino Erythrocyte distribution width (RBC) [Ratio] 13.6 % Normal 11.0-15.0 [facility] Comment on above: Performed By: #### D DAVIDSON, MG, PHOS, CMP, LIPID, URIC #### [facility] [address] [place] [address] Dr. Sarmad Patino Hematocrit (Bld) [Volume fraction] 47.5 % Normal 36.0-48.0 [facility] Comment on above: Performed By: #### D DAVIDSON, MG, PHOS, CMP, LIPID, URIC #### [facility] [address] [place] [address] Dr. Sarmad Patino Hemoglobin (Bld) [Mass/Vol] 15.7 g/dL Normal 12.0-16.0 [facility] Comment on above: Performed By: #### D DAVIDSON, MG, PHOS, CMP, LIPID, URIC #### [facility] [address] [place] [address] Dr. Sarmad Patino IG # 0.04 10e3/ul Critically high 0.00-0.03 [facility] Comment on above: Performed By: #### D DAVIDSON, MG, PHOS, CMP, LIPID, URIC #### [facility] [address] [place] [address] Dr. Sarmad Patino IG % 0.5 % Normal 0.0-0.5 [facility] Comment on above: Performed By: #### D DAVIDSON, MG, PHOS, CMP, LIPID, URIC #### [facility] [address] [place] [address] Dr. Sarmad Patino LYMPH # 1.3 103/ul Normal 1.2-3.8 [facility] Comment on above: Performed By: #### D DAVIDSON, MG, PHOS, CMP, LIPID, URIC #### [facility] [address] [place] [address] Dr. Sarmad Patino Lymphocytes/100 WBC (Bld) 15.4 % Critically low 20.5-60.0 [facility] Comment on above: Performed By: #### D DAVIDSON, MG, PHOS, CMP, LIPID, URIC #### [facility] [address] [place] [address] Dr. Sarmad Patino MANUAL DIFF REQ NO Normal [facility] Comment on above: Performed By: #### D DAVIDSON, MG, PHOS, CMP, LIPID, URIC #### [facility] [address] [place] [address] Dr. Sarmad Patino MCH (RBC) [Entitic mass] 29.1 pg Normal 26.7-34.0 [facility] Comment on above: Performed By: #### D DAVIDSON, MG, PHOS, CMP, LIPID, URIC #### [facility] [address] [place] [address] Dr. Sarmad Patino MCHC (RBC) [Mass/Vol] 33.1 g/dL Normal 29.9-35.[address] [facility] Comment on above: Performed By: #### D DAVIDSON, MG, PHOS, CMP, LIPID, URIC #### [facility] [address] [place] [address] Dr. Sarmad Patino MCV (RBC) [Entitic vol] 88.0 fL Normal 81.0-99.0 [facility] Comment on above: Performed By: #### D DAVIDSON, MG, PHOS, CMP, LIPID, URIC #### [facility] [address] [place] [address] Dr. Sarmad Patino MONO # 0.9 103/ul Critically high 0.3-0.8 [facility] Comment on above: Performed By: #### D DAVIDSON, MG, PHOS, CMP, LIPID, URIC #### [facility] [address] [place] [address] Dr. Sarmad Patino Monocytes/100 WBC (Bld) 10.2 % Normal 1.7-12.0 [facility] Comment on above: Performed By: #### D DAVIDSON, MG, PHOS, CMP, LIPID, URIC #### [facility] [address] [place] [address] Dr. Sarmad Patino NEUT # 6.1 103/ul Normal 1.4-6.[address] [facility] Comment on above: Performed By: #### D DAVIDSON, MG, PHOS, CMP, LIPID, URIC #### [facility] [address] [place] [address] Dr. Sarmad Patino Neutrophils/100 WBC (Bld) 72.4 % Normal 43.0-75.0 [facility] Comment on above: Performed By: #### D DAVIDSON, MG, PHOS, CMP, LIPID, URIC #### [facility] [address] [place] [address] Dr. Sarmad Patino Platelet mean volume (Bld) [Entitic vol] 11.1 fL Normal 9.5-13.5 [facility] Comment on above: Performed By: #### D DAVIDSON, MG, PHOS, CMP, LIPID, URIC #### [facility] [address] [place] [address] Dr. Sarmad Patino PLT 213 103/ul Normal 150-[address] [facility] Comment on above: Performed By: #### D DAVIDSON, MG, PHOS, CMP, LIPID, URIC #### [facility] [address] [place] [address] Dr. Sarmad Patino RBC 5.40 106/ul Normal 4.20-5.40 [facility] Comment on above: Performed By: #### D DAVIDSON, MG, PHOS, CMP, LIPID, URIC #### [facility] [address] [place] [address] Dr. Sarmad Patino WBC 8.4 103/ul Normal 4.0-11.0 [facility] Comment on above: Performed By: #### D DAVIDSON, MG, PHOS, CMP, LIPID, URIC #### [facility] [address] [address] [address] Sarmad Patino LIPID PROFILEon 10-08-2021 CHOL-HDL RATIO NORM SEE BELOW Normal [facility] Comment on above: Result Comment: 3.3 - 4.4 LOW RISK 4.4 - 7.1 AVERAGE RISK 7.1 - 11.0 MODERATE RISK >11.0 HIGH RISK Performed By: #### D DAVIDSON, MG, PHOS, CMP, LIPID, URIC #### [facility] [address] [address] [address] Sarmad Patino Cholesterol [Mass/Vol] 155 mg/dL Normal <=200 [facility] Comment on above: Performed By: #### D DAVIDSON, MG, PHOS, CMP, LIPID, URIC #### [facility] [address] [address] [address] Sarmad Patino Cholesterol in HDL [Mass/Vol] 49 mg/dL Normal 40-60 [facility] Comment on above: Performed By: #### D DAVIDSON, MG, PHOS, CMP, LIPID, URIC #### [facility] [address] [address] [address] Sarmad Patino Cholesterol in LDL [Mass/Vol] 73.8 mg/dL Normal [facility] Comment on above: Performed By: #### D DAVIDSON, MG, PHOS, CMP, LIPID, URIC #### [facility] [address] [address] [address] Sarmad Patino Cholesterol.total/Cho lesterol in HDL [Mass ratio] 3.2 {ratio} Normal [facility] Comment on above: Performed By: #### D DAVIDSON, MG, PHOS, CMP, LIPID, URIC #### [facility] [address] [address] [address] Sarmad Patino HDL NORMAL > or = 60 mg/dl - LO W CARDIOVASCULAR RISK <40 mg/dl - HIGH CARDIOVASCULAR RISK Normal [facility] Comment on above: Performed By: #### D DAVIDSON, MG, PHOS, CMP, LIPID, URIC #### [facility] [address] [address] [address] Sarmad Patino LDL CALC NORMAL SEE BELOW Normal [facility] Comment on above: Result Comment: <100 mg/dl OPTIMAL 100 - 129 mg/dl NEAR OR ABOVE OPTIMAL 130 - 159 mg/dl BORDERLINE HIGH 160 - 189 mg/dl HIGH >190 mg/dl VERY HIGH Performed By: #### D DAVIDSON, MG, PHOS, CMP, LIPID, URIC #### [facility] [address] [address] [address] Sarmad Patino Triglyceride [Mass/Vol] 161 mg/dL Critically high <=[address] [facility] Comment on above: Performed By: #### D DAVIDSON, MG, PHOS, CMP, LIPID, URIC #### [facility] [address] [address] [address] Sarmad Patino VLDL CALC 32.2 mg/dL Normal [facility] Comment on above: Performed By: #### D DAVIDSON, MG, PHOS, CMP, LIPID, URIC #### [facility] [address] [address] [address] Sarmad Patino MAGNESIUMon 10-08-2021 Magnesium [Mass/Vol] 1.6 mg/dL Critically low 1.8-2.4 [facility] Comment on above: Performed By: #### U MAXI, LIPID, MG, CMP, DBIL, PHOS #### [facility] [address] [address] [address] Sarmad Patino PHOSPHORUSon 10-08-2021 Phosphate [Mass/Vol] 3.5 mg/dL Normal 2.6-4.7 [facility] Comment on above: Performed By: #### U MAXI, LIPID, MG, CMP, DBIL, PHOS #### [facility] [address] [address] [address] Sarmad Patino PROF 14(COMP METB)on 022 Albumin [Mass/Vol] 3.6 g/dL Normal 3.4-5.0 [facility] Comment on above: Performed By: #### D DAVIDSON, MG, PHOS, CMP, LIPID, URIC #### [facility] [address] [place] [address] Dr. Sarmad Patino Albumin/Globulin [Mass ratio] 0.9 {ratio} Normal [facility] Comment on above: Performed By: #### D DAVIDSON, MG, PHOS, CMP, LIPID, URIC #### [facility] [address] [place] [address] Dr. Sarmad Patino ALP [Catalytic activity/Vol] 150 U/L Critically high 46-116 [facility] Comment on above: Performed By: #### D DAVIDSON, MG, PHOS, CMP, LIPID, URIC #### [facility] [address] [place] [address] Dr. Sarmad Patino ALT [Catalytic activity/Vol] 21 U/L Normal 14-59 [facility] Comment on above: Performed By: #### D DAVIDSON, MG, PHOS, CMP, LIPID, URIC #### [facility] [address] [place] [address] Dr. Sarmad Patino Anion gap [Moles/Vol] 14.0 mmol/L Normal [facility] Comment on above: Performed By: #### D DAVIDSON, MG, PHOS, CMP, LIPID, URIC #### [facility] [address] [place] [address] Dr. Sarmad Patino AST [Catalytic activity/Vol] 13 U/L Critically low 15-37 [facility] Comment on above: Performed By: #### D DAVIDSON, MG, PHOS, CMP, LIPID, URIC #### [facility] [address] [place] [address] Dr. Sarmad Patino Bilirubin [Mass/Vol] 0.5 mg/dL Normal 0.2-1.0 [facility] Comment on above: Performed By: #### D DAVIDSON, MG, PHOS, CMP, LIPID, URIC #### [facility] [address] [place] [address] Dr. Sarmad Patino Calcium [Mass/Vol] 9.8 mg/dL Normal 8.5-10.1 [facility] Comment on above: Performed By: #### D DAVIDSON, MG, PHOS, CMP, LIPID, URIC #### [facility] [address] [address] [address] Sarmad Patino Chloride [Moles/Vol] 105 mmol/L Normal 98-107 [facility] Comment on above: Performed By: #### D DAVIDSON, MG, PHOS, CMP, LIPID, URIC #### [facility] [address] [address] [address] Sarmad Patino CO2 [Moles/Vol] 25.9 mmol/L Normal 21.0-32.0 [facility] Comment on above: Performed By: #### D DAVIDSON, MG, PHOS, CMP, LIPID, URIC #### [facility] [address] [address] [address] Sarmad Patino Creatinine [Mass/Vol] 0.81 mg/dL Normal 0.55-1.02 [facility] Comment on above: Performed By: #### D DAVIDSON, MG, PHOS, CMP, LIPID, URIC #### [facility] [address] [address] [address] Sarmad Patino EGFR-AF [place]AST [place] >60 Normal >=60 [facility] Comment on above: Performed By: #### D DAVIDSON, MG, PHOS, CMP, LIPID, URIC #### [facility] [address] [place] [address] Dr. Sarmad Patino EGFR-NON AF [place] >60 Normal >=60 [facility] Comment on above: Performed By: #### D DAVIDSON, MG, PHOS, CMP, LIPID, URIC #### [facility] [address] [address] [address] Sarmad Patino Globulin (S) [Mass/Vol] 3.8 g/dL Normal [facility] Comment on above: Performed By: #### D DAVIDSON, MG, PHOS, CMP, LIPID, URIC #### [facility] [address] [address] [address] Sarmad Patino Glucose [Mass/Vol] 101 mg/dL Normal 74-106 [facility] Comment on above: Performed By: #### D DAVIDSON, MG, PHOS, CMP, LIPID, URIC #### [facility] [address] [address] [address] Sarmad Patino Potassium [Moles/Vol] 3.9 mmol/L Normal 3.5-5.[address] [facility] Comment on above: Performed By: #### D DAVIDSON, MG, PHOS, CMP, LIPID, URIC #### [facility] [address] [address] [address] Sarmad Patino Protein [Mass/Vol] 7.4 g/dL Normal 6.4-8.2 [facility] Comment on above: Performed By: #### D DAVIDSON, MG, PHOS, CMP, LIPID, URIC #### [facility] [address] [address] [address] Sarmad Patino Sodium [Moles/Vol] 141 mmol/L Normal 136-145 [facility] Comment on above: Performed By: #### D DAVIDSON, MG, PHOS, CMP, LIPID, URIC #### [facility] [address] [place] [address] Dr. Sarmad aPtino Urea nitrogen [Mass/Vol] 18.0 mg/dL Normal 7.0-18.[address] [facility] Comment on above: Performed By: #### D DAVIDSON, MG, PHOS, CMP, LIPID, URIC #### [facility] [address] [place] [address] Dr. Sarmad Patino Urea nitrogen/Creatinine [Mass ratio] 22.2 mg/mg Normal [facility] Comment on above: Performed By: #### D DAVIDSON, MG, PHOS, CMP, LIPID, URIC #### [facility] [address] [place] [address] Dr. Sarmad Patino URIC ACID SERUMon 10-08-2021 Urate [Mass/Vol] 4.7 mg/dL Normal 2.6-6.0 [facility] Comment on above: Performed By: #### D DAVIDSON, MG, PHOS, CMP, LIPID, URIC #### [facility] [address] [place] [address] Dr. Sarmad CHRISTIEMU, WHOLE BLOODon EVEROLIMUS 8.0 ng/mL Normal 3.0-8.0 [facility] Comment on above: Result Comment: Perf ormed by LC-MS/MS technology. Performed By: #### U MAXI, LIPID, MG, CMP, DBIL, PHOS #### [facility] [address] [place] [address] Dr. Sarmad Patino FK506 (TACROLIMUS) WHOLE BLO ODon 09-14-2021 Tacrolimus (FK506), Blood 9.3 ng/mL Normal 2.0-20.0 [facility] Comment on above: Result Comment: Trou gh (immediately following transplant) 15.0 . Trough (steady state, 2 weeks or more after transplant): 3.0 - 8.0 . Performed by LC-MS/MS technology. Performed By: #### U MAXI, LIPID, MG, CMP, DBIL, PHOS #### [facility] [address] [place] [address] Dr. Sarmad Patino BK VIRUS PCR QUANTon 022 BKV DNA QUANT PCR PLASMA Negative Normal Negative [facility] Comment on above: Result Comment: No B K DNA detected. . The linear range of the assay is 22 - 100,000,000 IU/mL. Performed By: #### D DAVIDSON, MG, PHOS, CMP, LIPID, URIC #### [facility] [address] [address] [address] Sarmad Patino Log10 BKV DNA Plasma Normal [facility] Comment on above: Performed By: #### D DAVIDSON, MG, PHOS, CMP, LIPID, URIC #### [facility] [address] [address] [address] Sarmad Patino BILIRUBIN CONJUGATED (DIRECT )on 09-10-2021 BILI, CONJUGATED 0.1 mg/dL Normal 0.0-0.2 [facility] Comment on above: Performed By: #### D DAVIDSON, MG, PHOS, CMP, LIPID, URIC #### [facility] [address] [place] [address] Dr. Sarmad Patino CBC AUTO DIFFon 09-10-2021 BASO # 0.0 103/ul Normal 0.0-0.[address] [facility] Comment on above: Performed By: #### D DAVIDSON, MG, PHOS, CMP, LIPID, URIC #### [facility] [address] [place] [address] Dr. Sarmad Patino Basophils/100 WBC (Bld) 0.1 % Critically low 0.2-2.[address] [facility] Comment on above: Performed By: #### D DAVIDSON, MG, PHOS, CMP, LIPID, URIC #### [facility] [address] [place] [address] Dr. Sarmad Patino EO # 0.2 103/ul Normal 0.0-0.[address] [facility] Comment on above: Performed By: #### D DAVIDSON, MG, PHOS, CMP, LIPID, URIC #### [facility] [address] [place] [address] Dr. Sarmad Patino Eosinophils/100 WBC (Bld) 2.3 % Normal 0.9-7.[address] [facility] Comment on above: Performed By: #### D DAVIDSON, MG, PHOS, CMP, LIPID, URIC #### [facility] [address] [place] [address] Dr. Sarmad Patino Erythrocyte distribution width (RBC) [Ratio] 13.6 % Normal 11.0-15.[address] [facility] Comment on above: Performed By: #### D DAVIDSON, MG, PHOS, CMP, LIPID, URIC #### [facility] [address] [place] [address] Dr. Sarmad Patino Hematocrit (Bld) [Volume fraction] 45.1 % Normal 36.0-48.[address] [facility] Comment on above: Performed By: #### D DAVIDSON, MG, PHOS, CMP, LIPID, URIC #### [facility] [address] [place] [address] Dr. Sarmad Patino Hemoglobin (Bld) [Mass/Vol] 14.7 g/dL Normal 12.0-16.[address] [facility] Comment on above: Performed By: #### D DAVIDSON, MG, PHOS, CMP, LIPID, URIC #### [facility] [address] [place] [address] Dr. Sarmad Patino IG # 0.03 10e3/ul Normal 0.00-0.[address] [facility] Comment on above: Performed By: #### D DAVIDSON, MG, PHOS, CMP, LIPID, URIC #### [facility] [address] [place] [address] Dr. Sarmad Patino IG % 0.4 % Normal 0.0-0.5 [facility] Comment on above: Performed By: #### D DAVIDSON, MG, PHOS, CMP, LIPID, URIC #### [facility] [address] [place] [address] Dr. Sarmad Patino LYMPH # 1.3 103/ul Normal 1.2-3.[address] [facility] Comment on above: Performed By: #### D DAVIDSON, MG, PHOS, CMP, LIPID, URIC #### [facility] [address] [place] [address] Dr. Sarmad Patino Lymphocytes/100 WBC (Bld) 18.9 % Critically low 20.5-60.0 [facility] Comment on above: Performed By: #### D DAVIDSON, MG, PHOS, CMP, LIPID, URIC #### [facility] [address] [place] [address] Dr. Sarmad Patino MANUAL DIFF REQ NO Normal [facility] Comment on above: Performed By: #### D DAVIDSON, MG, PHOS, CMP, LIPID, URIC #### [facility] [address] [place] [address] Dr. Sarmad Patino MCH (RBC) [Entitic mass] 29.0 pg Normal 26.7-34.0 [facility] Comment on above: Performed By: #### D DAVIDSON, MG, PHOS, CMP, LIPID, URIC #### [facility] [address] [place] [address] Dr. Sarmad Patino MCHC (RBC) [Mass/Vol] 32.6 g/dL Normal 29.9-35.[address] [facility] Comment on above: Performed By: #### D DAVIDSON, MG, PHOS, CMP, LIPID, URIC #### [facility] [address] [place] [address] Dr. Sarmad Patino MCV (RBC) [Entitic vol] 89.0 fL Normal 81.0-99.[address] [facility] Comment on above: Performed By: #### D DAVIDSON, MG, PHOS, CMP, LIPID, URIC #### [facility] [address] [place] [address] Dr. Sarmad Patino MONO # 0.8 103/ul Normal 0.3-0.[address] [facility] Comment on above: Performed By: #### D DAVIDSON, MG, PHOS, CMP, LIPID, URIC #### [facility] [address] [place] [address] Dr. Sarmad Patino Monocytes/100 WBC (Bld) 11.9 % Normal 1.7-12.[address] [facility] Comment on above: Performed By: #### D DAVIDSON, MG, PHOS, CMP, LIPID, URIC #### [facility] [address] [place] [address] Dr. Sarmad Patino NEUT # 4.6 103/ul Normal 1.4-6.[address] [facility] Comment on above: Performed By: #### D DAVIDSON, MG, PHOS, CMP, LIPID, URIC #### [facility] [address] [place] [address] Dr. Sarmad Patino Neutrophils/100 WBC (Bld) 66.4 % Normal 43.0-75.[address] [facility] Comment on above: Performed By: #### D DAVIDSON, MG, PHOS, CMP, LIPID, URIC #### [facility] [address] [place] [address] Dr. Sarmad Patino Platelet mean volume (Bld) [Entitic vol] 10.6 fL Normal 9.5-13.[address] [facility] Comment on above: Performed By: #### D DAVIDSON, MG, PHOS, CMP, LIPID, URIC #### [facility] [address] [place] [address] Dr. Sarmad Patino PLT 233 103/ul Normal 150-[address] [facility] Comment on above: Performed By: #### D DAVIDSON, MG, PHOS, CMP, LIPID, URIC #### [facility] [address] [place] [address] Dr. Sarmad Patino RBC 5.07 106/ul Normal 4.20-5.[address] [facility] Comment on above: Performed By: #### D DAVIDSON, MG, PHOS, CMP, LIPID, URIC #### [facility] [address] [address] [address] Sarmad Patino WBC 6.9 103/ul Normal 4.0-11.0 [facility] Comment on above: Performed By: #### D DAVIDSON, MG, PHOS, CMP, LIPID, URIC #### [facility] [address] [address] [address] Sarmad Patino GLYCOHEMOGLOBIN A1Con 2021 ADA RECOMMENDATION SEE BELOW Normal [facility] Comment on above: Result Comment: ADA RECOMMENDED LIMIT 4.0 - 6.0 ADA THERAPEUTIC TARGET < 7.0 ACTION SUGGESTED > 7.0 Performed By: #### D DAVIDSON, MG, PHOS, CMP, LIPID, URIC #### [facility] [address] [address] [address] Sarmad Patino Glucose [Mass/Vol] 120 mg/dL Normal [facility] Comment on above: Performed By: #### D DAVIDSON, MG, PHOS, CMP, LIPID, URIC #### [facility] [address] [address] [address] Sarmad Patino HbA1c (Bld) [Mass fraction] 5.8 % Normal 4.5-6.2 [facility] Comment on above: Performed By: #### D DAVIDSON, MG, PHOS, CMP, LIPID, URIC #### [facility] [address] [address] [address] Sarmad Patino LIPID PROFILEon 09-10-2021 CHOL-HDL RATIO NORM SEE BELOW Normal [facility] Comment on above: Result Comment: 3.3 - 4.4 LOW RISK 4.4 - 7.1 AVERAGE RISK 7.1 - 11.0 MODERATE RISK >11.0 HIGH RISK Performed By: #### D DAVIDSON, MG, PHOS, CMP, LIPID, URIC #### [facility] [address] [place] [address] Dr. Sarmad Patino Cholesterol [Mass/Vol] 150 mg/dL Normal <=200 [facility] Comment on above: Performed By: #### D DAVIDSON, MG, PHOS, CMP, LIPID, URIC #### [facility] [address] [address] [address] Sarmad Patino Cholesterol in HDL [Mass/Vol] 47 mg/dL Normal 40-60 [facility] Comment on above: Performed By: #### D DAVIDSON, MG, PHOS, CMP, LIPID, URIC #### [facility] [address] [address] [address] Sarmad Patino Cholesterol in LDL [Mass/Vol] 78.4 mg/dL Normal [facility] Comment on above: Performed By: #### D DAVIDSON, MG, PHOS, CMP, LIPID, URIC #### [facility] [address] [address] [address] Sarmad Patino Cholesterol.total/Cho lesterol in HDL [Mass ratio] 3.2 {ratio} Normal [facility] Comment on above: Performed By: #### D DAVIDSON, MG, PHOS, CMP, LIPID, URIC #### [facility] [address] [address] [address] Sarmad Patino HDL NORMAL > or = 60 mg/dl - LO W CARDIOVASCULAR RISK <40 mg/dl - HIGH CARDIOVASCULAR RISK Normal [facility] Comment on above: Performed By: #### D DAVIDSON, MG, PHOS, CMP, LIPID, URIC #### [facility] [address] [address] [address] Sarmad Patino LDL CALC NORMAL SEE BELOW Normal [facility] Comment on above: Result Comment: <100 mg/dl OPTIMAL 100 - 129 mg/dl NEAR OR ABOVE OPTIMAL 130 - 159 mg/dl BORDERLINE HIGH 160 - 189 mg/dl HIGH >190 mg/dl VERY HIGH Performed By: #### D DAVIDSON, MG, PHOS, CMP, LIPID, URIC #### [facility] [address] [address] [address] Sarmad Patino Triglyceride [Mass/Vol] 123 mg/dL Normal <=150 [facility] Comment on above: Performed By: #### D DAVIDSON, MG, PHOS, CMP, LIPID, URIC #### [facility] [address] [address] [address] Sarmad Patino VLDL CALC 24.6 mg/dL Normal [facility] Comment on above: Performed By: #### D DAVIDSON, MG, PHOS, CMP, LIPID, URIC #### [facility] [address] [address] [address] Sarmad Patino MAGNESIUMon 09-10-2021 Magnesium [Mass/Vol] 1.5 mg/dL Critically low 1.8-2.4 [facility] Comment on above: Performed By: #### D DAVIDSON, MG, PHOS, CMP, LIPID, URIC #### [facility] [address] [place] [address] Dr. Sarmad Patino PHOSPHORUSon 09-10-2021 Phosphate [Mass/Vol] 3.8 mg/dL Normal 2.6-4.7 [facility] Comment on above: Performed By: #### D DAVIDSON, MG, PHOS, CMP, LIPID, URIC #### [facility] [address] [place] [address] Dr. Sarmad Patino PROF 14(COMP METB)on 022 Albumin [Mass/Vol] 3.4 g/dL Normal 3.4-5.0 [facility] Comment on above: Performed By: #### D DAVIDSON, MG, PHOS, CMP, LIPID, URIC #### [facility] [address] [place] [address] Dr. Sarmad Patino Albumin/Globulin [Mass ratio] 0.9 {ratio} Normal [facility] Comment on above: Performed By: #### D DAVIDSON, MG, PHOS, CMP, LIPID, URIC #### [facility] [address] [place] [address] Dr. Sarmad Patino ALP [Catalytic activity/Vol] 143 U/L Critically high 46-116 [facility] Comment on above: Performed By: #### D DAVIDSON, MG, PHOS, CMP, LIPID, URIC #### [facility] [address] [place] [address] Dr. Sarmad Patino ALT [Catalytic activity/Vol] 19 U/L Normal 14-59 [facility] Comment on above: Performed By: #### D DAVIDSON, MG, PHOS, CMP, LIPID, URIC #### [facility] [address] [place] [address] Dr. Sarmad Patino Anion gap [Moles/Vol] 13.4 mmol/L Normal [facility] Comment on above: Performed By: #### D DAVIDSON, MG, PHOS, CMP, LIPID, URIC #### [facility] [address] [place] [address] Dr. Sarmad Patino AST [Catalytic activity/Vol] 24 U/L Normal 15-37 [facility] Comment on above: Performed By: #### D DAVIDSON, MG, PHOS, CMP, LIPID, URIC #### [facility] [address] [place] [address] Dr. Sarmad Patino Bilirubin [Mass/Vol] 0.4 mg/dL Normal 0.2-1.0 [facility] Comment on above: Performed By: #### D DAVIDSON, MG, PHOS, CMP, LIPID, URIC #### [facility] [address] [place] [address] Dr. Sarmad Patino Calcium [Mass/Vol] 9.3 mg/dL Normal 8.5-10.1 [facility] Comment on above: Performed By: #### D DAVIDSON, MG, PHOS, CMP, LIPID, URIC #### [facility] [address] [place] [address] Dr. Sarmad Patino Chloride [Moles/Vol] 106 mmol/L Normal 98-107 [facility] Comment on above: Performed By: #### D DAVIDSON, MG, PHOS, CMP, LIPID, URIC #### [facility] [address] [place] [address] Dr. Sarmad Patino CO2 [Moles/Vol] 25.5 mmol/L Normal 21.0-32.0 [facility] Comment on above: Performed By: #### D DAVIDSON, MG, PHOS, CMP, LIPID, URIC #### [facility] [address] [place] [address] Dr. Sarmad Patino Creatinine [Mass/Vol] 0.85 mg/dL Normal 0.55-1.02 [facility] Comment on above: Performed By: #### D DAVIDSON, MG, PHOS, CMP, LIPID, URIC #### [facility] [address] [address] [address] Sarmad Patino EGFR-AF [place] >60 Normal >=60 [facility] Comment on above: Performed By: #### D DAVIDSON, MG, PHOS, CMP, LIPID, URIC #### [facility] [address] [place] [address] Dr. Sarmad Patino EGFR-NON AF [place] >60 Normal >=[address] [facility] Comment on above: Performed By: #### D DAVIDSON, MG, PHOS, CMP, LIPID, URIC #### [facility] [address] [place] [address] Dr. Sarmad Patino Globulin (S) [Mass/Vol] 3.8 g/dL Normal [facility] Comment on above: Performed By: #### D DAVIDSON, MG, PHOS, CMP, LIPID, URIC #### [facility] [address] [place] [address] Dr. Sarmad Patino Glucose [Mass/Vol] 100 mg/dL Normal 74-106 [facility] Comment on above: Performed By: #### D DAVIDSON, MG, PHOS, CMP, LIPID, URIC #### [facility] [address] [place] [address] Dr. Sarmad Patino Potassium [Moles/Vol] 3.9 mmol/L Normal 3.5-5.[address] [facility] Comment on above: Performed By: #### D DAVIDSON, MG, PHOS, CMP, LIPID, URIC #### [facility] [address] [place] [address] Dr. Sarmad Patino Protein [Mass/Vol] 7.2 g/dL Normal 6.4-8.2 [facility] Comment on above: Performed By: #### D DAVIDSON, MG, PHOS, CMP, LIPID, URIC #### [facility] [address] [address] [address] Sarmad Patino Sodium [Moles/Vol] 141 mmol/L Normal 136-145 [facility] Comment on above: Performed By: #### D DAVIDSON, MG, PHOS, CMP, LIPID, URIC #### [facility] [address] [place] [address] Dr. Sarmad Patino Urea nitrogen [Mass/Vol] 16.0 mg/dL Normal 7.0-18.0 [facility] Comment on above: Performed By: #### D DAVIDSON, MG, PHOS, CMP, LIPID, URIC #### [facility] [id number] Sarmad Patino Urea nitrogen/Creatinine [Mass ratio] 18.8 mg/mg Normal [facility] Comment on above: Performed By: #### D DAVIDSON, MG, PHOS, CMP, LIPID, URIC #### [facility] [id number] Sarmad Patino URIC ACID SERUMon 09-10-2021 Urate [Mass/Vol] 4.8 mg/dL Normal 2.6-6.0 [facility] Comment on above: Performed By: #### D DAVIDSON, MG, PHOS, CMP, LIPID, URIC #### [facility] [address] [address] [address] Sarmad Patino Urinalysis - AUTOMATEDon Appearance (U) cloudy Me[employer] Other Bilirubin Ql (U) Negative [employer] Other Color (U) pale yellow [employer] Other Glucose Ql (U) Negative Me[employer] Other Hemoglobin Ql (U) moderate Teravac Other Ketones Ql (U) Negative [employer] Other Leukocyte esterase Test strip Ql (U) moderate [employer] Other Nitrite Ql (U) Negative [employer] Other pH (U) 7.0 [pH] [employer] Other Protein Ql (U) Negative [employer] Other Specific gravity (U) [Rel density] 1.010 [employer] Other Urobilinogen (U) [Mass/Vol] 0.2 mg/dL [employer] Other Urinalysis - AUTOMATED [employer] Other Urine Cultureon 08-14-2021 Urine Culture 100,000 [employer] Other Urine Culture <16 Susceptible Me[employer] Other Urine Culture >16 Resistant [employer] Other Urine Culture <4 Susceptible Me[employer] Other Urine Culture <2 Susceptible MePlease Other Urine Culture <1 Susceptible Me[employer] Other Urine Culture <0.5 Susceptible Me[employer] Other Urine Culture <32 Susceptible MePlease Other Urine Culture <2/38 Susceptible MePlease Other Bacteria identified Cx Nom (U) Reason for Exam Dysuria Urine ORGANISM: Klebsiella pneumoniae (O:KLEEDVINE) [place] Count 100,000 Aerobic SHYLA Charge (NUC86) ---- [...] RESISTANT TO ALL B-LACTAM DRUGS. PERFORMED BY: [facility] [address] [place] [address] PATHOLOGIST NURSING SPECIALIST LOVELY COLE M.D. Normal [facility] Comment on above: Performed By: #### C UU #### [facility] [address] *URINE CULTUREon 12-31-2017 Bacteria identified in Urine by Culture Clinical Report: (D) Specimen: URINE Collected: 12/31/2017 13:40 Status: Final Last Updated: 01/04/2018 12:38 ISO (Final) Diphtheroids >100,000 Cfu/Ml 2 Morphologies ISO (Final) Aerococcus urinae 50,000 - 100,000 Cfu/mL Result changed by RFISCHB on 01/04/2018 12:38. The previous result was: ISO (Prelim) Normal [facility] Comment on above: Performed By: #### 4 1000, 90416, 33156, 48244, 45541, 34265 ####[facility] CBC W/DIFFon 12-25-2017 ABS BASOPHILS 0.0 10*3/uL Normal 0.0-0.2 The [facility] Comment on above: Performed By: #### 5 0103 ####[facility] ABS IMM GRANS 0.0 10*3/uL Normal 0.0-0.2 [facility] Comment on above: Performed By: #### 5 0103 ####[facility] ABS NEUTROPHILS 5.0 10*3/uL Normal 1.6-7.6 The [facility] Comment on above: Performed By: #### 5 0103 ####[facility] [place] [address], [facility] Basophils Auto #/vol (Bld) 0.1 % Normal 0.0-1.0 The [facility] Comment on above: Performed By: #### 5 0103 ####[facility] Eosinophils Auto #/vol (Bld) 0.1 10*3/uL Normal 0.0-0.5 The [facility] Comment on above: Performed By: #### 5 0103 ####[facility]3000 [facility].[address] Eosinophils/100 WBC Auto (Bld) 1.6 % Normal 0.0-6.0 The [facility] Comment on above: Performed By: #### 5 0103 ####[facility] .[address] Erythrocyte distribution width Auto Ratio (RBC) 14.6 % Normal 11.5-15.0 The [facility] Comment on above: Performed By: #### 5 0103 ####[facility] Hematocrit Auto Volume Fraction (Bld) 44.9 % Normal 36.0-45.0 [facility] Comment on above: Performed By: #### 5 0103 ####[facility] Hemoglobin mass conc (Bld) 14.9 g/dL Normal 12.0-15.0 The [facility] Comment on above: Performed By: #### 3 ####[facility] IMMATURE GRANS 0.4 % Normal 0.0-1.[address] [facility] Comment on above: Performed By: #### 5 0103 ####[facility] .[address] Lymphocytes Auto #/vol (Bld) 1.0 10*3/uL Low 1.2-4.0 The [facility] Comment on above: Performed By: #### 5 0103 ####[facility] Lymphocytes/100 WBC Auto (Bld) 14.9 % Low 20.0-45.0 The [facility] Comment on above: Performed By: #### 3 ####[facility] MCH Auto Entitic mass (RBC) 28.8 pg Normal 27.0-33.0 The [facility] Comment on above: Performed By: #### 102 ####[facility] MCHC Auto mass conc (RBC) 33.2 g/dL Normal 32.0-35.0 The [facility] Comment on above: Performed By: #### 3 ####[facility] MCV Auto Entitic volume (RBC) 86.7 fL Normal 82.0-98.0 The [facility] Comment on above: Performed By: #### 3 ####[facility] .[address] Monocytes Auto #/vol (Bld) 0.7 10*3/uL Normal 0.1-1.0 The [facility] Comment on above: Performed By: #### 102 ####[facility] MONOS 10.6 % Normal 5.0-12.0 [facility] Comment on above: Performed By: #### 5 0103 ####[facility] Neutrophils/100 WBC Auto (Bld) 72.4 % High 40.0-72.0 [facility] Comment on above: Performed By: #### 5 0103 ####[facility] Nucleated RBC/100 WBC Ratio (Bld) 0 % Normal 0-0 The [facility] Comment on above: Performed By: #### 5 0103 ####[address] PLAT CNT 203 10*3/uL Normal 150-400 [facility] Comment on above: Performed By: #### 5 0103 ####[facility] RBC Auto #/vol (Bld) 5.18 10*6/uL High 3.80-5.00 [facility] Comment on above: Performed By: #### 5 0103 ####[facility] WBC Auto #/vol (Bld) 6.90 10*3/uL Normal 4.00-10.60 Th e [facility] Comment on above: Performed By: #### 5 0103 ####[facility] COMP METABOLIC PANELon 12-25 Albumin mass conc 4.3 g/dL Normal 3.5-5.7 [facility] Comment on above: Performed By: #### 4 1000, 63405, 78425, 36798, 35277, 21539 ####[address] ALKALINE PHOSPH 118 IU/L High 34-104 The [facility] Comment on above: Performed By: #### 4 1000, 27452, 31875, 00364, 99750, 07587 ####[facility] [id number], [facility] ALT enzyme act/vol 11 U/L Normal 7-52 The [facility] Comment on above: Performed By: #### 4 1000, 72923, 52088, 00948, 63313, 71125 ####[facility] [place] [address], [facility] AST enzyme act/vol 17 U/L Normal 13-39 The [facility] Comment on above: Performed By: #### 4 1000, 92619, 78054, 59152, 11020, 06956 ####[facility] [id number], [facility] Bilirubin mass conc 0.4 mg/dL Normal 0.3-1.0 The [facility] Comment on above: Performed By: #### 4 1000, 22152, 98136, 21669, 95513, 33961 ####[facility] [place] [address], [facility] Calcium mass conc 9.8 mg/dL Normal 8.6-10.3 The [facility] Comment on above: Performed By: #### 4 1000, 36549, 84808, 87500, 87028, 65498 ####[facility] [place] [address], [place] Chloride molar conc 104 mmol/L Normal 98-107 The [facility] Comment on above: Performed By: #### 4 1000, 14979, 47087, 89768, 61547, 40348 ####[facility] [place] [address], [place] CO2 molar conc 27 mmol/L Normal 21-31 The [facility] Comment on above: Performed By: #### 4 1000, 34088, 58155, 05649, 84371, 71249 ####[facility] [place] [address], [facility] Creatinine mass conc 0.76 mg/dL Normal 0.60-1.20 [facility] Comment on above: Performed By: #### 4 1000, 68878, 14091, 33438, 94279, 82639 ####[facility] [place] [address], [facility] GFR/1.73 sq M predicted among blacks MDRD vol rate/area (S/P/Bld) mL/min/{1.73_m2} Normal >60 The [facility] Comment on above: Performed By: #### 4 1000, 20159, 85143, 36110, 09569, 17103 ####[facility] [place] [address], [facility] GFR/1.73 sq M predicted among non-blacks MDRD vol rate/area (S/P/Bld) mL/min/{1.73_m2} Normal >60 The [facility] Comment on above: Performed By: #### 4 1000, 32180, 92635, 01959, 62505, 58388 ####[facility] [place] [address], [facility] Glucose mass conc 94 mg/dL Normal 70-100 [facility] Comment on above: Performed By: #### 4 1000, 79485, 67402, 05446, 14718, 39950 ####[facility] [place] [address], [facility] Potassium molar conc 3.9 mmol/L Normal 3.5-5.1 [facility] Comment on above: Performed By: #### 4 1000, 66038, 42207, 39087, 54541, 94431 ####[facility] Protein mass conc 7.2 g/dL Normal 6.0-8.3 The [facility] Comment on above: Performed By: #### 4 1000, 41938, 83062, 22369, 07903, 01578 ####[facility] Sodium molar conc 140 mmol/L Normal 136-145 The [facility] Comment on above: Performed By: #### 4 1000, 75093, 42925, 86816, 58600, 82542 ####[facility] Urea nitrogen mass conc 15 mg/dL Normal 7-25 The [facility] Comment on above: Performed By: #### 4 1000, 63086, 75450, 10803, 43599, 66533 ####[facility] DIRECT BILIon 12-25-2017 Bilirubin.direct mass conc 0.1 mg/dL Normal 0.0-0.2 The [facility] Comment on above: Performed By: #### 4 1000, 05541, 45150, 08066, 53263, 78982 ####[facility] EVEROLIMUS 90992ub 8 EVEROLIMUS 4.7 ng/mL Normal The [facility] Comment on above: Result Comment: [...] the transplantcenter.Test developed and characteristics determined by [employer]. See Compliance Statement B: [employer]/CSPerformed by [employer],[address] [place] [id number] qsg.[employer], Leonid Antonio MD - Lab. Director LIPID PROFILEon 12-25-2017 Cholesterol in HDL mass conc 51 mg/dL Normal 23-92 The [facility] Comment on above: Result Comment: Slig ht variation in normal range could be due to gender and/or age.HDL CHOLESTEROL REFERENCE RANGE:20 years and older Cardiovascular Risk> or =60 mg/dL Lbyaxsqkv63 TO 59 mg/dL Low Risk<40 mg/dL High Risk Performed By: #### 4 5506, 11952, 81779, 99895, 32500, 01557 ####[facility] Cholesterol in LDL mass conc 58 mg/dL Normal 0-130 The [facility] Comment on above: Result Comment: LDL IS A CALCULATIONLDL IS ONLY VALID IF THE TRIG IS LESS THAN 400. Performed By: #### 4 5506, 96824, 90719, 39888, 23568, 67432 ####[facility] [facility] [place] [address], [facility] Cholesterol mass conc 122 mg/dL Normal 120-200 The [facility] Comment on above: Result Comment: CHOL ESTEROL REFERENCE RANGE:20 YEARS AND OLDER CARDIOVASCULAR RISKLess than 200 mg/dl Low Hccj057 to 239 mg/dl Borderline Npot623 mg/dl and greater High Risk Performed By: #### 4 5506, 06922, 07127, 42473, 67491, 44547 ####[facility] [place] [address], [facility] Cholesterol.total/Cho lesterol in HDL mass ratio 2.4 {ratio} Normal .0-4.5 The [facility] Comment on above: Performed By: #### 4 5506, 31691, 89336, 73576, 15378, 89401 ####[facility] NON-HDL CHOLESTEROL 71 mg/dL Normal The [facility] Comment on above: Performed By: #### 4 5506, 56049, 74845, 13189, 41524, 08791 ####[facility] Triglyceride mass conc 65 mg/dL Normal 40-149 The [facility] Comment on above: Result Comment: TRIG LYCERIDE REFERENCE RANGE:20 YEARS AND OLDER CARDIOVASCULAR RISKLESS THAN 150 mg/dl LOW GILO849 TO 199 mg/dl BORDERLINE HXWH131 mg/dl AND GREATER HIGH RISK Performed By: #### 4 5506, 61721, 24850, 19987, 90118, 42606 ####[facility] VLDL CHOL 13 mg/dL Normal 0-40 The [facility] Comment on above: Performed By: #### 4 5506, 55015, 79048, 75025, 05558, 37277 ####[facility] [place] [address], [facility] MAGNESIUM BLOODon 12-25-2017 Magnesium mass conc 1.8 mg/dL Low 1.9-2.7 The [facility] Comment on above: Performed By: #### 4 1000, 36997, 11972, 91588, 12166, 08873 ####[facility] [place] [address], [facility] PHOSPHORUS BLOODon 09-27-201 8 Phosphate mass conc 3.4 mg/dL Normal 2.5-5.0 The [facility] Comment on above: Performed By: #### 4 5506, 05138, 62397, 51136, 93748, 55728 ####[facility] .[address] TACROLIMUSon 12-25-2017 Tacrolimus mass conc (Bld) 6.4 ng/mL Normal 5.0-20.0 The [facility] Comment on above: Result Comment: The [employer] REPORT DEVELOPER Tacrolimus assay is a delayed one-step immunoassayfor the quantitative determination of tacrolimus in human whole bloodusing the chemiluminescent microparticle immunoassay (CMIA) technologywith flexible assay protocols, referred to as Chemiflex. Performed By: #### 4 1000, 82728, 51211, 85266, 80637, 98785 ####[facility] URIC ACID BLOODon 12-25-2017 Urate mass conc 4.7 mg/dL Normal 2.3-6.6 The [facility] Comment on above: Performed By: #### 4 5506, 99863, 30140, 18031, 47301, 66796 ####[facility] CBC W/DIFFon 10-30-2017 ABS BASOPHILS 0.0 10*3/uL Normal 0.0-0.2 The [facility] Comment on above: Performed By: #### 4 6447, 63128 ####[facility] .[address] ABS IMM GRANS 0.0 10*3/uL Normal 0.0-0.2 The [facility] Comment on above: Performed By: #### 4 6447, 16428 ####[facility] ABS NEUTROPHILS 4.9 10*3/uL Normal 1.6-7.6 The [facility] Comment on above: Performed By: #### 4 2047, 28292 ####[facility] Basophils Auto #/vol (Bld) 0.1 % Normal 0.0-1.0 The [facility] Comment on above: Performed By: #### 4 7392, 13819 ####[facility] Eosinophils Auto #/vol (Bld) 0.1 10*3/uL Normal 0.0-0.5 The [facility] Comment on above: Performed By: #### 4 1138, 28049 ####[facility]3000 [facility].[address] Eosinophils/100 WBC Auto (Bld) 1.4 % Normal 0.0-6.0 The [facility] Comment on above: Performed By: #### 4 5429, 89345 ####[place] [address] [facility].[address] Erythrocyte distribution width Auto Ratio (RBC) 14.6 % Normal 11.5-15.0 The [facility] Comment on above: Performed By: #### 4 2396, 94222 ####[place] [address] Hematocrit Auto Volume Fraction (Bld) 46.8 % High 36.0-45.0 The [facility] Comment on above: Performed By: #### 4 6812, 27449 ####[facility] Hemoglobin mass conc (Bld) 15.1 g/dL High 12.0-15.0 The [facility] Comment on above: Performed By: #### 6 5706, 93870 ####[facility] IMMATURE GRANS 0.4 % Normal 0.0-1.0 The [facility] Comment on above: Performed By: #### 4 7378, 16223 ####[place] [address] Lymphocytes Auto #/vol (Bld) 1.2 10*3/uL Normal 1.2-4.0 The [facility] Comment on above: Performed By: #### 4 6215, 39225 ####[facility] Lymphocytes/100 WBC Auto (Bld) 16.6 % Low 20.0-45.0 The [facility] Comment on above: Performed By: #### 9 3013, 88326 ####[address] MCH Auto Entitic mass (RBC) 29.0 pg Normal 27.0-33.0 The [facility] Comment on above: Performed By: #### 2 7882, 77368 ####[address] MCHC Auto mass conc (RBC) 32.3 g/dL Normal 32.0-35.0 The [facility] Comment on above: Performed By: #### 4 2783, 51845 ####[address] MCV Auto Entitic volume (RBC) 89.8 fL Normal 82.0-98.0 The [facility] Comment on above: Performed By: #### 3 7059, 63990 ####[address] Monocytes Auto #/vol (Bld) 0.8 10*3/uL Normal 0.1-1.0 The [facility] Comment on above: Performed By: #### 2 3801, 74955 ####[facility] [place] [address], [facility] MONOS 11.9 % Normal 5.0-12.0 [facility] Comment on above: Performed By: #### 4 6447, 48794 ####[facility] [place] [address], [facility] Neutrophils/100 WBC Auto (Bld) 69.6 % Normal 40.0-72.0 The [facility] Comment on above: Performed By: #### 4 6447, 29706 ####[facility] [place] [address], [facility] Nucleated RBC/100 WBC Ratio (Bld) 0 % Normal 0-0 The [facility] Comment on above: Performed By: #### 4 6447, 27706 ####[facility] [place] [address], [facility] PLAT CNT 200 10*3/uL Normal 150-400 The [facility] Comment on above: Performed By: #### 4 6447, 98226 ####[facility] [place] [address], [facility] RBC Auto #/vol (Bld) 5.21 10*6/uL High 3.80-5.00 Th e [facility] Comment on above: Performed By: #### 4 6447, 24377 ####[facility] WBC Auto #/vol (Bld) 7.04 10*3/uL Normal 4.00-10.60 Th e [facility] Comment on above: Performed By: #### 4 6447, 31438 ####[facility] .[address] COMP METABOLIC PANELon 10-30 Albumin mass conc 4.1 g/dL Normal 3.5-5.7 [facility] Comment on above: Performed By: #### 2 3247, 90283 ####[facility]3000 [facility].[place] [address], [facility] ALKALINE PHOSPH 114 IU/L High 34-104 The [facility] Comment on above: Performed By: #### 4 8847, 33563 ####[facility]3000 [facility].[place] [address], [facility] ALT enzyme act/vol 16 U/L Normal 7-52 The [facility] Comment on above: Performed By: #### 4 7876, 06185 ####[facility] [place] [address], [place] AST enzyme act/vol 18 U/L Normal 13-39 The [facility] Comment on above: Performed By: #### 8 8916, 08540 ####[facility] [place] [address].[place] [address], [facility] Bilirubin mass conc 0.4 mg/dL Normal 0.3-1.0 The [facility] Comment on above: Performed By: #### 7 3964, 32799 ####[facility] .[place] [address], [facility] Calcium mass conc 9.7 mg/dL Normal 8.6-10.3 The [facility] Comment on above: Performed By: #### 8 7280, 40854 ####[facility] .[place] [address], [place] Chloride molar conc 105 mmol/L Normal 98-107 The [facility] Comment on above: Performed By: #### 7 0899, 09544 ####[facility] .[place] [address], [place] CO2 molar conc 28 mmol/L Normal 21-31 The [facility] Comment on above: Performed By: #### 8 8983, 70175 ####[facility] [place] [address], [facility] Creatinine mass conc 0.82 mg/dL Normal 0.60-1.20 The [facility] Comment on above: Performed By: #### 4 2452, 93808 ####[facility] [place] [address], [facility] GFR/1.73 sq M predicted among blacks MDRD vol rate/area (S/P/Bld) mL/min/{1.73_m2} Normal >60 The [facility] Comment on above: Performed By: #### 4 2202, 79224 ####[facility] [place] [address], [facility] GFR/1.73 sq M predicted among non-blacks MDRD vol rate/area (S/P/Bld) mL/min/{1.73_m2} Normal >60 The [facility] Comment on above: Performed By: #### 4 9812, 87890 ####[facility] [place] [address], [facility] Glucose mass conc 90 mg/dL Normal 70-100 The [facility] Comment on above: Performed By: #### 4 8003, 53410 ####[facility] [place] [address], [facility] Potassium molar conc 4.1 mmol/L Normal 3.5-5.1 The [facility] Comment on above: Performed By: #### 4 8572, 17575 ####[facility] [place] [address], [facility] Protein mass conc 6.9 g/dL Normal 6.0-8.3 The [facility] Comment on above: Performed By: #### 4 1592, 92497 ####[facility] [place] [address], [place] Sodium molar conc 138 mmol/L Normal 136-145 The [facility] Comment on above: Performed By: #### 4 6447, 46408 ####[facility] [place] nitrogen mass conc 16 mg/dL Normal 7-25 [facility] Comment on above: Performed By: #### 4 6447, 63744 ####[facility] DIRECT BILIon 10-30-2017 Bilirubin.direct mass conc 0.0 mg/dL Normal 0.0-0.2 [facility] Comment on above: Performed By: #### 4 5506, 17989, 22931, 81867, 43200, 42703 ####[facility] EVEROLIMUS [id number] 8 EVEROLIMUS 6.0 ng/mL Normal [facility] Comment on above: Result Comment: Ther [...] the transplantcenter.Test developed and characteristics determined by [facility]. See Compliance Statement B: [facility]/CSPerformed by [facility],[address] [place] [address] nid.[facility], Leonid Antonio MD - Lab. Director LIPID PROFILEon 10-30-2017 Cholesterol in HDL mass conc 50 mg/dL Normal 23-92 [facility] Comment on above: Result Comment: Slig ht variation in normal range could be due to gender and/or age.HDL CHOLESTEROL REFERENCE RANGE:20 years and older Cardiovascular Risk> or =60 mg/dL Wzvuvrhac60 TO 59 mg/dL Low Risk<40 mg/dL High Risk Performed By: #### 4 5506, 06275, 76644, 27004, 14262, 85809 ####[facility] [place] [address], [facility] Cholesterol in LDL mass conc 85 mg/dL Normal 0-130 [facility] Comment on above: Result Comment: LDL IS A CALCULATIONLDL IS ONLY VALID IF THE TRIG IS LESS THAN 400. Performed By: #### 4 5506, 35232, 25524, 51867, 01058, 12324 ####[facility] [place] [address], [place] Cholesterol mass conc 152 mg/dL Normal 120-200 [facility] Comment on above: Result Comment: CHOL ESTEROL REFERENCE RANGE:20 YEARS AND OLDER CARDIOVASCULAR RISKLess than 200 mg/dl Low Lulc773 to 239 mg/dl Borderline Supa250 mg/dl and greater High Risk Performed By: #### 4 5506, 79364, 25460, 44244, 25257, 07862 ####[facility] [place] [address], [place] Cholesterol.total/Cho lesterol in HDL mass ratio 3.0 {ratio} Normal .0-4.5 [facility] Comment on above: Performed By: #### 4 5506, 93819, 86033, 82291, 73759, 66625 ####[facility] [place] [address], [place] NON-HDL CHOLESTEROL 102 mg/dL Normal [facility] Comment on above: Performed By: #### 4 5506, 05338, 31073, 26533, 83602, 88356 ####[facility] Triglyceride mass conc 87 mg/dL Normal 40-149 [facility] Comment on above: Result Comment: TRIG LYCERIDE REFERENCE RANGE:20 YEARS AND OLDER CARDIOVASCULAR RISKLESS THAN 150 mg/dl LOW [id number] TO 199 mg/dl BORDERLINE CCZU931 mg/dl AND GREATER HIGH RISK Performed By: #### 4 5506, 08922, 22128, 53550, 76197, 45836 ####[facility] VLDL CHOL 17 mg/dL Normal 0-40 [facility] Comment on above: Performed By: #### 4 5506, 79346, 44268, 92423, 35392, 51654 ####[facility] MAGNESIUM BLOODon 10-30-2017 Magnesium mass conc 1.9 mg/dL Normal 1.9-2.7 [facility] Comment on above: Performed By: #### 4 5506, 82180, 62810, 60105, 25163, 66546 ####[facility] PHOSPHORUS BLOODon 8 Phosphate mass conc 3.7 mg/dL Normal 2.5-5.0 [facility] Comment on above: Performed By: #### 4 5506, 33277, 37481, 05412, 49047, 01297 ####[facility] TACROLIMUSon 10-30-2017 Tacrolimus mass conc (Bld) 7.1 ng/mL Normal 5.0-20.0 [facility] Comment on above: Result Comment: The [employer] Tacrolimus assay is a delayed one-step immunoassayfor the quantitative determination of tacrolimus in human whole bloodusing the chemiluminescent microparticle immunoassay (CMIA) technologywith flexible assay protocols, referred to as Chemiflex. Performed By: #### 9 9914 ####[place] [address] URIC ACID BLOODon 10-30-2017 Urate mass conc 4.6 mg/dL Normal 2.3-6.6 [facility] Comment on above: Performed By: #### 4 6447, 92096 ####[place] [address] CBC W/DIFFon 10-23-2017 ABS BASOPHILS 0.0 10*3/uL Normal 0.0-0.2 [facility] Comment on above: Performed By: #### 4 6447, 52411 ####[address] ABS IMM GRANS 0.1 10*3/uL Normal 0.0-0.2 [facility] Comment on above: Performed By: #### 4 4547, 80406 ####[place] [address] ABS NEUTROPHILS 5.8 10*3/uL Normal 1.6-7.6 The [facility] Comment on above: Performed By: #### 4 6447, 01777 ####[place] [address] Basophils Auto #/vol (Bld) 0.2 % Normal 0.0-1.0 The [facility] Comment on above: Performed By: #### 4 6447, 31984 ####[address] Eosinophils Auto #/vol (Bld) 0.1 10*3/uL Normal 0.0-0.5 [facility] Comment on above: Performed By: #### 4 6447, 25680 ####[facility] [place] [address], [facility] Eosinophils/100 WBC Auto (Bld) 0.7 % Normal 0.0-6.0 [facility] Comment on above: Performed By: #### 4 8923, 12935 ####[facility] Erythrocyte distribution width Auto Ratio (RBC) 14.6 % Normal 11.5-15.0 [facility] Comment on above: Performed By: #### 4 4647, 39132 ####[facility]3000 [facility].[address] Hematocrit Auto Volume Fraction (Bld) 44.2 % Normal 36.0-45.0 [facility] Comment on above: Performed By: #### 9 5976, 95029 ####[facility] [facility].[address] Hemoglobin mass conc (Bld) 14.2 g/dL Normal 12.0-15.0 [facility] Comment on above: Performed By: #### 3 9657, 61700 ####[facility] .[address] IMMATURE GRANS 1.4 % High 0.0-1.0 [facility] Comment on above: Performed By: #### 2 9229, 50192 ####[facility] Lymphocytes Auto #/vol (Bld) 2.1 10*3/uL Normal 1.2-4.0 [facility] Comment on above: Performed By: #### 8 4695, 53511 ####[facility] [place] [address], [facility] Lymphocytes/100 WBC Auto (Bld) 22.5 % Normal 20.0-45.0 The [facility] Comment on above: Performed By: #### 4 1147, 72126 ####[facility] [facility].[address] MCH Auto Entitic mass (RBC) 28.5 pg Normal 27.0-33.0 The [facility] Comment on above: Performed By: #### 4 8413, 32966 ####[facility] .[address] MCHC Auto mass conc (RBC) 32.1 g/dL Normal 32.0-35.0 [facility] Comment on above: Performed By: #### 4 8160, 65181 ####[facility]3000 [facility].[address] MCV Auto Entitic volume (RBC) 88.8 fL Normal 82.0-98.0 The [facility] Comment on above: Performed By: #### 4 6125, 13999 ####[facility] .[address] Monocytes Auto #/vol (Bld) 1.1 10*3/uL High 0.1-1.0 [facility] Comment on above: Performed By: #### 4 9147, 19564 ####[facility] .[address] MONOS 12.0 % Normal 5.0-12.0 [facility] Comment on above: Performed By: #### 4 7147, 33163 ####[facility] .[address] Neutrophils/100 WBC Auto (Bld) 63.2 % Normal 40.0-72.0 The [facility] Comment on above: Performed By: #### 7 3047, 71033 ####[facility] Nucleated RBC/100 WBC Ratio (Bld) 0 % Normal 0-0 [facility] Comment on above: Performed By: #### 4 6447, 72491 ####[facility] .[address] PLAT CNT 241 10*3/uL Normal 150-400 [facility] Comment on above: Performed By: #### 4 6447, 01839 ####[facility] .[address] RBC Auto #/vol (Bld) 4.98 10*6/uL Normal 3.80-5.00 Th e [facility] Comment on above: Performed By: #### 4 6447, 40373 ####[facility] .[address] WBC Auto #/vol (Bld) 9.14 10*3/uL Normal 4.00-10.60 Th e [facility] Comment on above: Performed By: #### 4 6447, 05414 ####[facility] .[address] COMP METABOLIC PANELon 10-23 Albumin mass conc 3.8 g/dL Normal 3.5-5.7 [facility] Comment on above: Performed By: #### 4 6447, 58163 ####[facility] .[address] ALKALINE PHOSPH 96 IU/L Normal 34-104 [facility] Comment on above: Performed By: #### 4 6447, 39926 ####[facility] .[address] ALT enzyme act/vol 15 U/L Normal 7-52 [facility] Comment on above: Performed By: #### 4 6447, 98936 ####[facility] [place] [address], [facility] AST enzyme act/vol 13 U/L Normal 13-39 The [facility] Comment on above: Performed By: #### 4 2511, 10524 ####[facility] [place] [address], [facility] Bilirubin mass conc 0.4 mg/dL Normal 0.3-1.0 The [facility] Comment on above: Performed By: #### 4 0202, 10235 ####[facility] [place] [address], [facility] Calcium mass conc 9.2 mg/dL Normal 8.6-10.3 [facility] Comment on above: Performed By: #### 8 4865, 40221 ####[facility] [place] [address], [facility] Chloride molar conc 102 mmol/L Normal 98-107 [facility] Comment on above: Performed By: #### 2 6061, 23638 ####[facility] [place] [address], [facility] CO2 molar conc 29 mmol/L Normal 21-31 [facility] Comment on above: Performed By: #### 6 4287, 36993 ####[facility] [place] [address], [facility] Creatinine mass conc 0.80 mg/dL Normal 0.60-1.20 The [facility] Comment on above: Performed By: #### 3 4583, 21864 ####[facility] [place] [address], [facility] GFR/1.73 sq M predicted among blacks MDRD vol rate/area (S/P/Bld) mL/min/{1.73_m2} Normal >60 The [facility] Comment on above: Performed By: #### 0 0203, 52387 ####[facility] [place] [address], [facility] GFR/1.73 sq M predicted among non-blacks MDRD vol rate/area (S/P/Bld) mL/min/{1.73_m2} Normal >60 The [facility] Comment on above: Performed By: #### 4 6447, 11992 ####[facility] [place] [address], [facility] Glucose mass conc 85 mg/dL Normal 70-100 The [facility] Comment on above: Performed By: #### 4 6447, 78636 ####[address] [place] [address], [facility] Potassium molar conc 3.3 mmol/L Low 3.5-5.1 The [facility] Comment on above: Performed By: #### 4 6447, 89682 ####[address] Protein mass conc 6.5 g/dL Normal 6.0-8.3 The [facility] Comment on above: Performed By: #### 4 1947, 47547 ####[place] [address] [place] [address], [facility] Sodium molar conc 139 mmol/L Normal 136-145 [facility] Comment on above: Performed By: #### 4 3347, 28715 ####[place] [address] [place] [address], [facility] Urea nitrogen mass conc 18 mg/dL Normal 7-25 The [facility] Comment on above: Performed By: #### 4 7671, 66639 ####[place] [address] [place] [address], [facility] DIRECT BILIon 10-23-2017 Bilirubin.direct mass conc 0.1 mg/dL Normal 0.0-0.2 The [facility] Comment on above: Performed By: #### 4 6447, 42839 ####[facility] EVEROLIMUS [id number] 8 EVEROLIMUS 4.0 ng/mL Normal [facility] Comment on above: Result Comment: Ther [...] the transplantcenter.Test developed and characteristics determined by [employer]. See Compliance Statement B: [facility]/CSPerformed by [facility],[address] [place] [id number] cfj.[facility], Leonid Antonio MD - Lab. Director LIPID PROFILEon 10-23-2017 Cholesterol in HDL mass conc 53 mg/dL Normal 23-92 The [facility] Comment on above: Result Comment: Slig ht variation in normal range could be due to gender and/or age.HDL CHOLESTEROL REFERENCE RANGE:20 years and older Cardiovascular Risk> or =60 mg/dL Vjojuzftz82 TO 59 mg/dL Low Risk<40 mg/dL High Risk Performed By: #### 4 9043, 36995 ####[facility] Cholesterol in LDL mass conc 68 mg/dL Normal 0-130 The [facility] Comment on above: Result Comment: LDL IS A CALCULATIONLDL IS ONLY VALID IF THE TRIG IS LESS THAN 400. Performed By: #### 4 7969, 36674 ####[facility] [place] [address], [facility] Cholesterol mass conc 135 mg/dL Normal 120-200 [facility] Comment on above: Result Comment: CHOL ESTEROL REFERENCE RANGE:20 YEARS AND OLDER CARDIOVASCULAR RISKLess than 200 mg/dl Low Dqrj860 to 239 mg/dl Borderline Qklb220 mg/dl and greater High Risk Performed By: #### 4 6606, 00436 ####[facility] .[address] Cholesterol.total/Cho lesterol in HDL mass ratio 2.5 {ratio} Normal .0-4.5 [facility] Comment on above: Performed By: #### 4 0305, 09993 ####[facility] .[address] NON-HDL CHOLESTEROL 82 mg/dL Normal [facility] Comment on above: Performed By: #### 4 8460, 00432 ####[facility] [place] [address], [facility] Triglyceride mass conc 72 mg/dL Normal 40-149 The [facility] Comment on above: Result Comment: TRIG LYCERIDE REFERENCE RANGE:20 YEARS AND OLDER CARDIOVASCULAR RISKLESS THAN 150 mg/dl LOW [id number] TO 199 mg/dl BORDERLINE QUHT632 mg/dl AND GREATER HIGH RISK Performed By: #### 4 0344, 61019 ####[facility] [place] [address], [facility] VLDL CHOL 14 mg/dL Normal 0-40 [facility] Comment on above: Performed By: #### 4 3693, 79265 ####[facility] [place] [address], [facility] MAGNESIUM BLOODon 10-23-2017 Magnesium mass conc 1.8 mg/dL Low 1.9-2.7 The [facility] Comment on above: Performed By: #### 4 6447, 14395 ####[address] PHOSPHORUS BLOODon 8 Phosphate mass conc 3.7 mg/dL Normal 2.5-5.0 [facility] Comment on above: Performed By: #### 4 6047, 09256 ####[facility] TACROLIMUSon 10-23-2017 Tacrolimus mass conc (Bld) 2.6 ng/mL Low 5.0-20.0 [facility] Comment on above: Result Comment: The [employer] RE[employer] DEVELOPER Tacrolimus assay is a delayed one-step immunoassayfor the quantitative determination of tacrolimus in human whole bloodusing the chemiluminescent microparticle immunoassay (CMIA) technologywith flexible assay protocols, referred to as Chemiflex. Performed By: #### 4 8047, 14288 ####[place] [address] URIC ACID BLOODon 10-23-2017 Urate mass conc 4.3 mg/dL Normal 2.3-6.6 [facility] Comment on above: Performed By: #### 4 9616, 18795 ####[place] [address] CBC W/DIFFon 09-25-2017 ABS BASOPHILS 0.0 10*3/uL Normal 0.0-0.2 [facility] Comment on above: Performed By: #### 4 1000, 31029, 60327, 53745, 37205, 10892 ####[address] ABS IMM GRANS 0.0 10*3/uL Normal 0.0-0.2 [facility] Comment on above: Performed By: #### 4 1000, 23453, 39608, 97879, 61061, 18053 ####[facility] [place] [address], [facility] ABS NEUTROPHILS 4.4 10*3/uL Normal 1.6-7.6 The [facility] Comment on above: Performed By: #### 4 1000, 60902, 68664, 89482, 29383, 02525 ####[facility] Basophils Auto #/vol (Bld) 0.2 % Normal 0.0-1.0 [facility] Comment on above: Performed By: #### 4 1000, 46239, 71758, 51894, 74975, 13532 ####[facility] [facility] [place] [address], [facility] Eosinophils Auto #/vol (Bld) 0.1 10*3/uL Normal 0.0-0.5 [facility] Comment on above: Performed By: #### 4 1000, 76815, 17708, 93458, 31002, 46645 ####[facility] [facility].[address] Eosinophils/100 WBC Auto (Bld) 2.2 % Normal 0.0-6.0 The [facility] Comment on above: Performed By: #### 4 1000, 61221, 25624, 13378, 54550, 13475 ####[facility] Erythrocyte distribution width Auto Ratio (RBC) 14.0 % Normal 11.5-15.0 [facility] Comment on above: Performed By: #### 4 1000, 34457, 84838, 84833, 56263, 17400 ####[facility] Hematocrit Auto Volume Fraction (Bld) 44.8 % Normal 36.0-45.0 [facility] Comment on above: Performed By: #### 4 1000, 22454, 62550, 76702, 02876, 48384 ####[facility] .[address] Hemoglobin mass conc (Bld) 14.5 g/dL Normal 12.0-15.0 [facility] Comment on above: Performed By: #### 4 1000, 63077, 15825, 07143, 61547, 32848 ####[facility] IMMATURE GRANS 0.3 % Normal 0.0-1.0 [facility] Comment on above: Performed By: #### 4 1000, 45837, 58173, 85376, 37986, 14442 ####[place] [address] .[address] Lymphocytes Auto #/vol (Bld) 1.1 10*3/uL Low 1.2-4.0 [facility] Comment on above: Performed By: #### 4 1000, 55258, 02602, 76711, 11549, 49210 ####[facility] .[address] Lymphocytes/100 WBC Auto (Bld) 17.0 % Low 20.0-45.0 [facility] Comment on above: Performed By: #### 4 1000, 77173, 12155, 90611, 68572, 20079 ####[facility] MCH Auto Entitic mass (RBC) 28.6 pg Normal 27.0-33.0 [facility] Comment on above: Performed By: #### 4 1000, 61323, 61031, 82878, 87246, 98864 ####[facility] MCHC Auto mass conc (RBC) 32.4 g/dL Normal 32.0-35.0 [facility] Comment on above: Performed By: #### 4 1000, 32807, 73888, 27906, 82576, 66244 ####[facility] MCV Auto Entitic volume (RBC) 88.4 fL Normal 82.0-98.0 [facility] Comment on above: Performed By: #### 4 1000, 94445, 92348, 24893, 99827, 54591 ####[facility] Monocytes Auto #/vol (Bld) 0.7 10*3/uL Normal 0.1-1.0 [facility] Comment on above: Performed By: #### 4 1000, 07716, 27840, 17074, 70716, 86280 ####[facility] MONOS 11.5 % Normal 5.0-12.0 The [facility] Comment on above: Performed By: #### 4 1000, 46864, 43587, 49279, 28223, 14525 ####[facility] Neutrophils/100 WBC Auto (Bld) 68.8 % Normal 40.0-72.0 [facility] Comment on above: Performed By: #### 4 1000, 45916, 04632, 54454, 38310, 99729 ####[facility] Nucleated RBC/100 WBC Ratio (Bld) 0 % Normal 0-0 [facility] Comment on above: Performed By: #### 4 1000, 48254, 00415, 71991, 56396, 64368 ####[facility] PLAT CNT 212 10*3/uL Normal 150-400 [facility] Comment on above: Performed By: #### 4 1000, 03458, 75402, 01121, 04074, 18826 ####[facility] RBC Auto #/vol (Bld) 5.07 10*6/uL High 3.80-5.00 Th e [facility] Comment on above: Performed By: #### 4 1000, 39770, 63270, 97427, 23088, 89456 ####[facility] WBC Auto #/vol (Bld) 6.34 10*3/uL Normal 4.00-10.60 Th e [facility] Comment on above: Performed By: #### 4 1000, 65201, 22034, 11111, 66043, 26316 ####[facility]3000 [facility].[address] COMP METABOLIC PANELon 09-25 Albumin mass conc 4.0 g/dL Normal 3.5-5.7 [facility] Comment on above: Performed By: #### 4 6447, 00785 ####[facility] .[address] ALKALINE PHOSPH 112 IU/L High 34-104 The [facility] Comment on above: Performed By: #### 4 6447, 33920 ####[facility] ALT enzyme act/vol 11 U/L Normal 7-52 The [facility] Comment on above: Performed By: #### 4 6447, 07281 ####[facility] AST enzyme act/vol 17 U/L Normal 13-39 [facility] Comment on above: Performed By: #### 4 6447, 41486 ####[facility] [place] [address], [place] Bilirubin mass conc 0.5 mg/dL Normal 0.3-1.0 [facility] Comment on above: Performed By: #### 4 6447, 44449 ####[facility] [place] [address], [place] Calcium mass conc 9.6 mg/dL Normal 8.6-10.3 [facility] Comment on above: Performed By: #### 4 6447, 87592 ####[facility] [place] [address], [place] Chloride molar conc 104 mmol/L Normal 98-107 [facility] Comment on above: Performed By: #### 4 0647, 53907 ####[facility] [place] [address], [place] CO2 molar conc 28 mmol/L Normal 21-31 [facility] Comment on above: Performed By: #### 4 0547, 77224 ####[facility] [place] [address], [place] Creatinine mass conc 0.83 mg/dL Normal 0.60-1.20 [facility] Comment on above: Performed By: #### 4 6447, 74622 ####[facility] [place] [address], [place] GFR/1.73 sq M predicted among blacks MDRD vol rate/area (S/P/Bld) mL/min/{1.73_m2} Normal >60 The [facility] [place] Comment on above: Performed By: #### 4 6447, 73746 ####[facility] [place] [address], [place] GFR/1.73 sq M predicted among non-blacks MDRD vol rate/area (S/P/Bld) mL/min/{1.73_m2} Normal >60 [facility] Comment on above: Performed By: #### 4 2075, 71584 ####[facility] [place] [address], [facility] Glucose mass conc 91 mg/dL Normal 70-100 The [facility] Comment on above: Performed By: #### 4 5714, 70767 ####[facility] [place] [address], [facility] Potassium molar conc 3.9 mmol/L Normal 3.5-5.1 The [facility] Comment on above: Performed By: #### 4 4843, 44413 ####[facility] [place] [address], [facility] Protein mass conc 7.0 g/dL Normal 6.0-8.3 The [facility] Comment on above: Performed By: #### 4 7067, 10545 ####[facility] [place] [address], [facility] Sodium molar conc 140 mmol/L Normal 136-145 The [facility] Comment on above: Performed By: #### 4 2049, 21633 ####[facility] [place] [address], [facility] Urea nitrogen mass conc 15 mg/dL Normal 7-25 The [facility] Comment on above: Performed By: #### 4 7481, 63722 ####[facility] [place] [address], [facility] DIRECT BILIon 09-25-2017 Bilirubin.direct mass conc 0.1 mg/dL Normal 0.0-0.2 The [facility] Comment on above: Performed By: #### 4 0343, 72365 ####[facility] [place] [address], [facility] EVEROLIMUS [id number] 8 EVEROLIMUS 5.1 ng/mL Normal The [facility] Comment on above: Result Comment: [...] the transplantcenter.Test developed and characteristics determined by [facility]. See Compliance Statement B: [facility]/CSPerformed by [employer],[address] [place] [id number] zsp.[facility], Leonid Antonio MD - Lab. Director LIPID PROFILEon 09-25-2017 Cholesterol in HDL mass conc 48 mg/dL Normal 23-92 The [facility] Comment on above: Result Comment: Slig ht variation in normal range could be due to gender and/or age.HDL CHOLESTEROL REFERENCE RANGE:20 years and older Cardiovascular Risk> or =60 mg/dL Dhydbjusj85 TO 59 mg/dL Low Risk<40 mg/dL High Risk Performed By: #### 4 0359, 23006 ####[facility] [place] [address], [facility] Cholesterol in LDL mass conc 69 mg/dL Normal 0-130 The [facility] Comment on above: Result Comment: LDL IS A CALCULATIONLDL IS ONLY VALID IF THE TRIG IS LESS THAN 400. Performed By: #### 4 8858, 46953 ####[facility] [place] [address], [facility] Cholesterol mass conc 138 mg/dL Normal 120-200 The [facility] Comment on above: Result Comment: CHOL ESTEROL REFERENCE RANGE:20 YEARS AND OLDER CARDIOVASCULAR RISKLess than 200 mg/dl Low Jxyk682 to 239 mg/dl Borderline Euui862 mg/dl and greater High Risk Performed By: #### 4 5554, 77076 ####[facility] [place] [address], [facility] Cholesterol.total/Cho lesterol in HDL mass ratio 2.9 {ratio} Normal .0-4.5 The [facility] Comment on above: Performed By: #### 4 7677, 56646 ####[facility] [facility].[address] NON-HDL CHOLESTEROL 90 mg/dL Normal The [facility] Comment on above: Performed By: #### 4 8800, 39476 ####[facility] Triglyceride mass conc 103 mg/dL Normal 40-149 The [facility] Comment on above: Result Comment: TRIG LYCERIDE REFERENCE RANGE:20 YEARS AND OLDER CARDIOVASCULAR RISKLESS THAN 150 mg/dl LOW [id number] TO 199 mg/dl BORDERLINE SPSP186 mg/dl AND GREATER HIGH RISK Performed By: #### 4 5856, 12168 ####[facility] [facility] [place] [address], [facility] VLDL CHOL 21 mg/dL Normal 0-40 The [facility] Comment on above: Performed By: #### 4 2349, 65926 ####[facility] [place] [address], [facility] MAGNESIUM BLOODon 09-25-2017 Magnesium mass conc 1.8 mg/dL Low 1.9-2.7 The [facility] Comment on above: Performed By: #### 4 6447, 70891 ####[facility] [place] [address].[address] PHOSPHORUS BLOODon 8 Phosphate mass conc 3.4 mg/dL Normal 2.5-5.0 The [facility] Comment on above: Performed By: #### 4 6447, 76681 ####[address] TACROLIMUSon 09-25-2017 Tacrolimus mass conc (Bld) 3.6 ng/mL Low 5.0-20.0 The [facility] Comment on above: Result Comment: The [employer] SSRS REPORT DEVELOPER Tacrolimus assay is a delayed one-step immunoassayfor the quantitative determination of tacrolimus in human whole bloodusing the chemiluminescent microparticle immunoassay (CMIA) technologywith flexible assay protocols, referred to as Chemiflex. Performed By: #### 4 6447, 36280 ####[address] URIC ACID BLOODon 09-25-2017 Urate mass conc 4.7 mg/dL Normal 2.3-6.6 The [facility] Comment on above: Performed By: #### 4 6447, 76479 ####[address] BK VIRUS QUANTITATION PCR BL OODon 08-26-2017 BKV QUANT PCR Not detected Normal The [facility] Comment on above: Result Comment: Meth od: BK virus was measured by quantitative polymerase chain reactionusing a TaqMan probe targeting the polyomavirus BK HAND STONECUTTER-1 gene.The lower limit of quantitation of the assay is 500 copies of BK genomeper milliliter of plasma or urine, and any detectable BK DNA below thatlevel is reported as: Detected, <500 copies/ml. Serial BK virusmeasurement can be used to monitor disease activity. (Reference:Kelsie vaughanl. J CLIN MICRO 2004; 42:8009-0454).This test was developed and its performance characteristics determinedby the [facility] Molecular Diagnostics Laboratory. It has not been approvedby the [place] Food and Drug Administration. However, such approval is notrequired for clinical implementation, and test results have been shownto be clinically useful. This laboratory is CAP accredited and CLIAcertified to perform high complexity testing. Performed By: #### 4 1000, 03531, 13226, 06970, 87574, 93338 ####[facility] LOG 10 COPIES Not detected Normal The [facility] Comment on above: Performed By: #### 4 1000, 85423, 14596, 22545, 89798, 63636 ####[facility] CBC W/DIFFon 08-26-2017 ABS BASOPHILS 0.0 10*3/uL Normal 0.0-0.2 The [facility] Comment on above: Performed By: #### 4 1000, 70521, 08304, 76908, 14049, 79030 ####[facility] ABS IMM GRANS 0.0 10*3/uL Normal 0.0-0.2 The [facility] Comment on above: Performed By: #### 4 1000, 78096, 84974, 46995, 11093, 58497 ####[facility] ABS NEUTROPHILS 4.5 10*3/uL Normal 1.6-7.6 The [facility] Comment on above: Performed By: #### 4 1000, 73053, 16795, 88903, 65950, 32119 ####[facility] Basophils Auto #/vol (Bld) 0.2 % Normal 0.0-1.0 The [facility] Comment on above: Performed By: #### 4 1000, 83708, 43220, 90697, 99635, 55598 ####[facility] Eosinophils Auto #/vol (Bld) 0.2 10*3/uL Normal 0.0-0.5 The [facility] Comment on above: Performed By: #### 4 1000, 35844, 80868, 76181, 04685, 86115 ####[facility] Eosinophils/100 WBC Auto (Bld) 2.4 % Normal 0.0-6.0 The [facility] Comment on above: Performed By: #### 4 1000, 91283, 75944, 34118, 17465, 61548 ####[facility] [facility].[address] Erythrocyte distribution width Auto Ratio (RBC) 14.0 % Normal 11.5-15.0 The [facility] Comment on above: Performed By: #### 4 1000, 55977, 81264, 85687, 01051, 58545 ####[facility] [facility].[address] Hematocrit Auto Volume Fraction (Bld) 44.9 % Normal 36.0-45.0 The [facility] Comment on above: Performed By: #### 4 1000, 79623, 88734, 35910, 34640, 61667 ####[facility] [facility].[address] Hemoglobin mass conc (Bld) 14.9 g/dL Normal 12.0-15.0 The [facility] Comment on above: Performed By: #### 4 1000, 73081, 64183, 27667, 25945, 03332 ####[facility] IMMATURE GRANS 0.5 % Normal 0.0-1.0 The [facility] Comment on above: Performed By: #### 4 1000, 54530, 33426, 52715, 22773, 85241 ####[facility] [facility].[address] Lymphocytes Auto #/vol (Bld) 1.0 10*3/uL Low 1.2-4.0 The [facility] Comment on above: Performed By: #### 4 1000, 40848, 24342, 60361, 06412, 39254 ####[facility] .[address] Lymphocytes/100 WBC Auto (Bld) 15.8 % Low 20.0-45.0 The [facility] Comment on above: Performed By: #### 4 1000, 17302, 01799, 22500, 42803, 66207 ####[facility] .[address] MCH Auto Entitic mass (RBC) 29.1 pg Normal 27.0-33.0 The [facility] Comment on above: Performed By: #### 4 1000, 32113, 49676, 53139, 96611, 72351 ####[facility] MCHC Auto mass conc (RBC) 33.2 g/dL Normal 32.0-35.0 The [facility] Comment on above: Performed By: #### 4 1000, 87511, 78127, 95668, 22198, 33106 ####[facility] MCV Auto Entitic volume (RBC) 87.7 fL Normal 82.0-98.0 The [facility] Comment on above: Performed By: #### 4 1000, 38761, 96711, 34077, 14168, 11635 ####[facility] Monocytes Auto #/vol (Bld) 0.7 10*3/uL Normal 0.1-1.0 The [facility] Comment on above: Performed By: #### 4 1000, 52044, 43425, 43943, 26682, 83349 ####[facility] [place] [address], [facility] MONOS 10.6 % Normal 5.0-12.0 [facility] Comment on above: Performed By: #### 4 1000, 11222, 33621, 70350, 09217, 36948 ####[facility] [place] [address], [facility] Neutrophils/100 WBC Auto (Bld) 70.5 % Normal 40.0-72.0 [facility] Comment on above: Performed By: #### 4 1000, 57966, 14426, 78438, 84225, 73651 ####[facility] Nucleated RBC/100 WBC Ratio (Bld) 0 % Normal 0-0 [facility] Comment on above: Performed By: #### 4 1000, 89422, 04828, 25911, 19008, 85797 ####[facility] PLAT CNT 231 10*3/uL Normal 150-400 The [facility] Comment on above: Performed By: #### 4 1000, 63676, 82221, 92407, 17472, 19383 ####[facility] [place] [address], [facility] RBC Auto #/vol (Bld) 5.12 10*6/uL High 3.80-5.00 Th e [facility] Comment on above: Performed By: #### 4 1000, 91840, 13424, 72434, 50854, 85441 ####[facility] [place] [address], [facility] WBC Auto #/vol (Bld) 6.32 10*3/uL Normal 4.00-10.60 Th e [facility] Comment on above: Performed By: #### 4 1000, 83355, 25166, 81307, 86861, 85160 ####[facility] COMP METABOLIC PANELon 08-26 Albumin mass conc 4.3 g/dL Normal 3.5-5.7 The [facility] Comment on above: Performed By: #### 4 1000, 70778, 78288, 12303, 14231, 39636 ####[facility] ALKALINE PHOSPH 125 IU/L High 34-104 The [facility] Comment on above: Performed By: #### 4 1000, 87742, 35515, 36709, 35984, 26695 ####[facility] ALT enzyme act/vol 17 U/L Normal 7-52 The [facility] Comment on above: Performed By: #### 4 1000, 68089, 45700, 14171, 94421, 41296 ####[facility] [place] [address], [facility] AST enzyme act/vol 23 U/L Normal 13-39 The [facility] Comment on above: Performed By: #### 4 1000, 73019, 96877, 12724, 83068, 56592 ####[facility] [place] [address], [facility] Bilirubin mass conc 0.4 mg/dL Normal 0.3-1.[address] [facility] Comment on above: Performed By: #### 4 1000, 52042, 73552, 28420, 55271, 33141 ####[facility] [place] [address], [facility] Calcium mass conc 9.6 mg/dL Normal 8.6-10.3 [facility] Comment on above: Performed By: #### 4 1000, 21682, 31600, 40781, 61287, 06916 ####[facility] [place] [address], [facility] Chloride molar conc 104 mmol/L Normal 98-107 The [facility] Comment on above: Performed By: #### 4 1000, 77132, 86278, 42459, 80453, 05111 ####[facility] [place] [address], [place] CO2 molar conc 27 mmol/L Normal 21-31 The [facility] Comment on above: Performed By: #### 4 1000, 21662, 65075, 87541, 98479, 16652 ####[facility] [place] [address], [place] Creatinine mass conc 0.77 mg/dL Normal 0.60-1.20 [facility] Comment on above: Performed By: #### 4 1000, 65348, 82614, 02426, 29562, 36848 ####[facility] [place] [address], [facility] GFR/1.73 sq M predicted among blacks MDRD vol rate/area (S/P/Bld) mL/min/{1.73_m2} Normal >60 The [facility] [place] Comment on above: Performed By: #### 4 1000, 16354, 45165, 43626, 83702, 51504 ####[facility] [place] [address], [place] GFR/1.73 sq M predicted among non-blacks MDRD vol rate/area (S/P/Bld) mL/min/{1.73_m2} Normal >60 The [facility] [place] Comment on above: Performed By: #### 4 1000, 60460, 03120, 62345, 96789, 08954 ####[facility] [place] [address], [facility] Glucose mass conc 95 mg/dL Normal 70-100 The [facility] Comment on above: Performed By: #### 4 1000, 55623, 89437, 94778, 82511, 12400 ####[facility] [place] [address], [facility] Potassium molar conc 4.1 mmol/L Normal 3.5-5.1 The [facility] Comment on above: Performed By: #### 4 1000, 86134, 75601, 65036, 48003, 20953 ####[facility] [place] [address], [facility] Protein mass conc 7.3 g/dL Normal 6.0-8.3 The [facility] Comment on above: Performed By: #### 4 1000, 85591, 75540, 10760, 17102, 66634 ####[facility] [place] [address], [facility] Sodium molar conc 139 mmol/L Normal 136-145 The [facility] Comment on above: Performed By: #### 4 1000, 08624, 93632, 78193, 77124, 33720 ####[facility] [place] [address], [facility] Urea nitrogen mass conc 12 mg/dL Normal 7-25 The [facility] Comment on above: Performed By: #### 4 1000, 00244, 31539, 56679, 73075, 24489 ####[facility] [id number], [facility] DIRECT BILIon 08-26-2017 Bilirubin.direct mass conc 0.1 mg/dL Normal 0.0-0.2 The [facility] Comment on above: Performed By: #### 4 1000, 51671, 89151, 94980, 02362, 53840 ####[facility] EVEROLIMUS 88468ep 8 EVEROLIMUS 5.6 ng/mL Normal [facility] Comment on above: Result Comment: Ther [...] the transplantcenter.Test developed and characteristics determined by [facility]. See Compliance Statement B: [facility]/CSPerformed by [employer],[address] [place] [address] rrw.[facility], Leonid Antonio MD - Lab. Director HEMOGLOBIN A1Con 08-26-2017 Glucose mass conc 114 mg/dL Normal 70-126 [facility] Comment on above: Performed By: #### 4 1000, 37487, 12291, 84143, 70159, 46662 ####[facility] Hemoglobin A1c/Hemoglobin.total mass fraction (Bld) 5.6 % Normal 4.0-6.0 The [facility] Comment on above: Performed By: #### 4 1000, 18398, 92525, 40460, 20980, 67659 ####[facility] [place] [address], [facility] LIPID PROFILEon 08-26-2017 Cholesterol in HDL mass conc 49 mg/dL Normal 23-92 The [facility] Comment on above: Result Comment: Slig ht variation in normal range could be due to gender and/or age.HDL CHOLESTEROL REFERENCE RANGE:20 years and older Cardiovascular Risk> or =60 mg/dL Zjikzreze67 TO 59 mg/dL Low Risk<40 mg/dL High Risk Performed By: #### 4 1000, 73216, 68797, 84918, 61164, 88437 ####[facility] [place] [address], [facility] Cholesterol in LDL mass conc 76 mg/dL Normal 0-130 The [facility] Comment on above: Result Comment: LDL IS A CALCULATIONLDL IS ONLY VALID IF THE TRIG IS LESS THAN 400. Performed By: #### 4 1000, 30609, 44462, 30242, 23471, 65200 ####[facility] [place] [address], [facility] Cholesterol mass conc 152 mg/dL Normal 120-200 The [facility] Comment on above: Result Comment: CHOL ESTEROL REFERENCE RANGE:20 YEARS AND OLDER CARDIOVASCULAR RISKLess than 200 mg/dl Low Oetw696 to 239 mg/dl Borderline Adur200 mg/dl and greater High Risk Performed By: #### 4 1000, 62679, 23193, 78629, 03126, 77640 ####[facility] [place] [address], [facility] Cholesterol.total/Cho lesterol in HDL mass ratio 3.1 {ratio} Normal .0-4.5 The [facility] Comment on above: Performed By: #### 4 1000, 35316, 77776, 03632, 00741, 47963 ####[facility] [place] [address], [place] NON-HDL CHOLESTEROL 103 mg/dL Normal The [facility] Comment on above: Performed By: #### 4 1000, 64620, 38470, 50207, 80629, 45370 ####[facility] Triglyceride mass conc 133 mg/dL Normal 40-149 The [facility] Comment on above: Result Comment: TRIG LYCERIDE REFERENCE RANGE:20 YEARS AND OLDER CARDIOVASCULAR RISKLESS THAN 150 mg/dl LOW [id number] TO 199 mg/dl BORDERLINE [id number] mg/dl AND GREATER HIGH RISK Performed By: #### 4 1000, 68651, 20922, 45906, 24561, 22892 ####[facility] VLDL CHOL 27 mg/dL Normal 0-40 The [facility] Comment on above: Performed By: #### 4 1000, 25097, 48259, 11685, 75561, 44698 ####[facility] MAGNESIUM BLOODon 08-26-2017 Magnesium mass conc 1.9 mg/dL Normal 1.9-2.7 The [facility] Comment on above: Performed By: #### 4 1000, 26342, 75459, 58587, 35868, 40783 ####[facility] PHOSPHORUS BLOODon 8 Phosphate mass conc 3.4 mg/dL Normal 2.5-5.0 The [facility] Comment on above: Performed By: #### 4 1000, 75664, 51243, 63078, 56216, 60152 ####[facility] TACROLIMUSon 08-26-2017 Tacrolimus mass conc (Bld) 4.3 ng/mL Low 5.0-20.0 The [facility] Comment on above: Result Comment: The [employer] REPORT DEVELOPER Tacrolimus assay is a delayed one-step immunoassayfor the quantitative determination of tacrolimus in human whole bloodusing the chemiluminescent microparticle immunoassay (CMIA) technologywith flexible assay protocols, referred to as Chemiflex. Performed By: #### 4 1000, 35223, 19820, 95585, 82724, 85069 ####[facility] URIC ACID BLOODon 08-26-2017 Urate mass conc 4.6 mg/dL Normal 2.3-6.6 The [facility] Comment on above: Performed By: #### 4 1000, 34035, 40194, 82841, 91230, 25183 ####[facility] CBC W/DIFFon 07-23-2017 ABS BASOPHILS 0.0 10*3/uL Normal 0.0-0.2 The [facility] Comment on above: Performed By: #### 4 1000, 54664, 15816, 03325, 30429, 68368 ####[facility] ABS IMM GRANS 0.0 10*3/uL Normal 0.0-0.2 The [facility] Comment on above: Performed By: #### 4 1000, 49812, 99775, 83510, 77621, 63134 ####[facility] ABS NEUTROPHILS 4.4 10*3/uL Normal 1.6-7.6 The [facility] Comment on above: Performed By: #### 4 1000, 81787, 86747, 21065, 41447, 58149 ####[facility] Basophils Auto #/vol (Bld) 0.2 % Normal 0.0-1.0 The [facility] Comment on above: Performed By: #### 4 1000, 21534, 69054, 47466, 08460, 44894 ####[facility] Eosinophils Auto #/vol (Bld) 0.1 10*3/uL Normal 0.0-0.5 The [facility] Comment on above: Performed By: #### 4 1000, 54453, 73577, 31120, 56187, 84233 ####[facility] Eosinophils/100 WBC Auto (Bld) 2.1 % Normal 0.0-6.0 The [facility] Comment on above: Performed By: #### 4 1000, 36572, 09309, 46180, 68360, 11053 ####[facility] [facility] Erythrocyte distribution width Auto Ratio (RBC) 13.7 % Normal 11.5-15.0 The [facility] Comment on above: Performed By: #### 4 1000, 77354, 43605, 60992, 95652, 50446 ####[facility] Hematocrit Auto Volume Fraction (Bld) 44.4 % Normal 36.0-45.0 The [facility] Comment on above: Performed By: #### 4 1000, 60710, 52573, 99780, 23730, 63634 ####[facility] .[address] Hemoglobin mass conc (Bld) 14.7 g/dL Normal 12.0-15.0 The [facility] Comment on above: Performed By: #### 4 1000, 78795, 37911, 95873, 41185, 88110 ####[facility] IMMATURE GRANS 0.5 % Normal 0.0-1.0 The [facility] Comment on above: Performed By: #### 4 1000, 69065, 37053, 71782, 26363, 20589 ####[facility] .[address] Lymphocytes Auto #/vol (Bld) 1.0 10*3/uL Low 1.2-4.0 The [facility] Comment on above: Performed By: #### 4 1000, 61767, 57530, 55235, 92547, 10297 ####[facility] .[address] Lymphocytes/100 WBC Auto (Bld) 15.5 % Low 20.0-45.0 The [facility] Comment on above: Performed By: #### 4 1000, 92928, 66018, 08587, 43748, 39793 ####[facility] .[address] MCH Auto Entitic mass (RBC) 28.9 pg Normal 27.0-33.0 The [facility] Comment on above: Performed By: #### 4 1000, 50959, 89962, 66491, 57004, 42545 ####[facility] .[address] MCHC Auto mass conc (RBC) 33.1 g/dL Normal 32.0-35.0 The [facility] Comment on above: Performed By: #### 4 1000, 13871, 49368, 37961, 05441, 25978 ####[facility] [address] MCV Auto Entitic volume (RBC) 87.4 fL Normal 82.0-98.0 The [facility] Comment on above: Performed By: #### 4 1000, 60984, 87152, 14488, 95843, 13631 ####[facility] Monocytes Auto #/vol (Bld) 0.8 10*3/uL Normal 0.1-1.0 The [facility] Comment on above: Performed By: #### 4 1000, 98735, 91478, 83437, 03475, 36377 ####[facility] MONOS 12.3 % High 5.0-12.0 The [facility] Comment on above: Performed By: #### 4 1000, 83102, 80124, 25479, 59716, 92690 ####[facility] Neutrophils/100 WBC Auto (Bld) 69.4 % Normal 40.0-72.0 The [facility] Comment on above: Performed By: #### 4 1000, 00423, 26039, 81109, 38579, 01394 ####[facility].[address] Nucleated RBC/100 WBC Ratio (Bld) 0 % Normal 0-0 The [facility] Comment on above: Performed By: #### 4 1000, 92888, 70439, 84307, 53522, 40959 ####[facility] .[address] PLAT CNT 218 10*3/uL Normal 150-400 [facility] Comment on above: Performed By: #### 4 1000, 56763, 12336, 10796, 57009, 73188 ####[facility] RBC Auto #/vol (Bld) 5.08 10*6/uL High 3.80-5.00 Th e [facility] Comment on above: Performed By: #### 4 1000, 10589, 25574, 21920, 08953, 99185 ####[facility] WBC Auto #/vol (Bld) 6.3 10*3/uL Normal 4.0-10.6 The [facility] Comment on above: Performed By: #### 4 1000, 99166, 21260, 14705, 99699, 56692 ####[facility] [place] [address], [facility] COMP METABOLIC PANELon 07-23 Albumin mass conc 4.2 g/dL Normal 3.5-5.7 The [facility] Comment on above: Performed By: #### 4 1000, 91288, 47350, 49270, 10559, 76548 ####[facility] [place] [address], [facility] ALKALINE PHOSPH 113 IU/L High 34-104 The [facility] Comment on above: Performed By: #### 4 1000, 54316, 01778, 66727, 93483, 20816 ####[facility] [place] [address], [facility] ALT enzyme act/vol 23 U/L Normal 7-52 The [facility] Comment on above: Performed By: #### 4 1000, 53572, 93204, 44953, 60132, 41468 ####[facility] [place] [address], [facility] AST enzyme act/vol 25 U/L Normal 13-39 The [facility] Comment on above: Performed By: #### 4 1000, 14567, 32257, 19528, 73756, 79237 ####[facility] [place] [address], [facility] Bilirubin mass conc 0.6 mg/dL Normal 0.3-1.0 The [facility] Comment on above: Performed By: #### 4 1000, 18492, 15245, 04662, 88224, 23830 ####[facility] [place] [address], [place] Calcium mass conc 9.6 mg/dL Normal 8.6-10.3 The [facility] Comment on above: Performed By: #### 4 1000, 36119, 92793, 92370, 06574, 47578 ####[facility] [place] [address], [facility] Chloride molar conc 104 mmol/L Normal 98-[address] [facility] Comment on above: Performed By: #### 4 1000, 58325, 10254, 03812, 33293, 27025 ####[facility] [place] [address], [place] CO2 molar conc 25 mmol/L Normal 21-31 [facility] Comment on above: Performed By: #### 4 1000, 59387, 33276, 47499, 37152, 04807 ####[facility] [place] [address], [facility] Creatinine mass conc 0.80 mg/dL Normal 0.60-1.20 [facility] Comment on above: Performed By: #### 4 1000, 22489, 28501, 91930, 65954, 93620 ####[facility] [place] [address], [facility] GFR/1.73 sq M predicted among blacks MDRD vol rate/area (S/P/Bld) mL/min/{1.73_m2} Normal >60 The [facility] Comment on above: Performed By: #### 4 1000, 78699, 69349, 52137, 69810, 20889 ####[facility] [place] [address], [place] GFR/1.73 sq M predicted among non-blacks MDRD vol rate/area (S/P/Bld) mL/min/{1.73_m2} Normal >60 The [facility] Comment on above: Performed By: #### 4 1000, 87943, 44558, 97172, 67913, 43477 ####[facility] [place] [address], [facility] Glucose mass conc 91 mg/dL Normal 70-100 The [facility] Comment on above: Performed By: #### 4 1000, 92400, 91084, 95567, 66269, 68720 ####[facility] [place] [address], [facility] Potassium molar conc 4.0 mmol/L Normal 3.5-5.1 The [facility] Comment on above: Performed By: #### 4 1000, 46480, 08763, 15697, 26851, 29130 ####[facility] [place] [address], [facility] Protein mass conc 6.8 g/dL Normal 6.0-8.3 The [facility] Comment on above: Performed By: #### 4 1000, 03436, 05338, 65691, 89670, 07117 ####[facility] [place] [address], [facility] Sodium molar conc 140 mmol/L Normal 136-145 The [facility] Comment on above: Performed By: #### 4 1000, 21684, 16935, 97461, 40644, 87529 ####[facility] [place] [address], [facility] Urea nitrogen mass conc 16 mg/dL Normal 7-25 The [facility] Comment on above: Performed By: #### 4 1000, 40863, 58489, 04016, 03295, 86869 ####[facility] [place] [address], [facility] DIRECT BILIon 07-23-2017 Bilirubin.direct mass conc 0.2 mg/dL Normal 0.0-0.2 The [facility] Comment on above: Performed By: #### 4 1000, 24426, 54734, 40467, 48109, 04505 ####[facility] [place] [address], [facility] EVEROLIMUS [id number] 8 EVEROLIMUS 5.3 ng/mL Normal The [facility] Comment on above: Result Comment: [...] the transplantcenter.Test developed and characteristics determined by [facility]. See Compliance Statement B: [facility]/CSPerformed by [employer],[address] [place] [id number] afw.[facility], Leonid Antonio MD - Lab. Director LIPID PROFILEon 07-23-2017 Cholesterol in HDL mass conc 45 mg/dL Normal 23-92 The [facility] Comment on above: Result Comment: Slig ht variation in normal range could be due to gender and/or age.HDL CHOLESTEROL REFERENCE RANGE:20 years and older Cardiovascular Risk> or =60 mg/dL Gatavszxs10 TO 59 mg/dL Low Risk<40 mg/dL High Risk Performed By: #### 4 1000, 33899, 72664, 98109, 34833, 99824 ####[facility] [place] [address], [facility] Cholesterol in LDL mass conc 79 mg/dL Normal 0-130 The [facility] Comment on above: Result Comment: LDL IS A CALCULATIONLDL IS ONLY VALID IF THE TRIG IS LESS THAN 400. Performed By: #### 4 1000, 94401, 42251, 14282, 16513, 80711 ####[facility] [place] [address], [facility] Cholesterol mass conc 141 mg/dL Normal 120-200 The [facility] Comment on above: Result Comment: CHOL ESTEROL REFERENCE RANGE:20 YEARS AND OLDER CARDIOVASCULAR RISKLess than 200 mg/dl Low Agwj465 to 239 mg/dl Borderline Ovod183 mg/dl and greater High Risk Performed By: #### 4 1000, 81086, 39999, 47971, 72417, 95452 ####[facility] [place] [address], [facility] Cholesterol.total/Cho lesterol in HDL mass ratio 3.1 {ratio} Normal .0-4.5 The [facility] Comment on above: Performed By: #### 4 1000, 14669, 54989, 20116, 40452, 45546 ####[facility] [place] [address], [facility] NON-HDL CHOLESTEROL 96 mg/dL Normal The [facility] Comment on above: Performed By: #### 4 1000, 08492, 63576, 71085, 99861, 09595 ####[facility] [place] [address], [facility] Triglyceride mass conc 83 mg/dL Normal 40-149 The [facility] Comment on above: Result Comment: TRIG LYCERIDE REFERENCE RANGE:20 YEARS AND OLDER CARDIOVASCULAR RISKLESS THAN 150 mg/dl LOW [id number] TO 199 mg/dl BORDERLINE [id number] mg/dl AND GREATER HIGH RISK Performed By: #### 4 1000, 24017, 01157, 34772, 23791, 37084 ####[facility] [place] [address], [place] VLDL CHOL 17 mg/dL Normal 0-40 The [facility] Comment on above: Performed By: #### 4 1000, 31729, 86924, 35914, 98102, 33397 ####[facility] [facility] [place] [address], [facility] MAGNESIUM BLOODon 07-23-2017 Magnesium mass conc 2.0 mg/dL Normal 1.9-2.7 The [facility] Comment on above: Performed By: #### 4 1000, 35444, 49762, 05406, 23121, 78360 ####[facility] .[address] PHOSPHORUS BLOODon 8 Phosphate mass conc 4.0 mg/dL Normal 2.5-5.0 The [facility] Comment on above: Performed By: #### 4 1000, 05645, 88969, 34894, 33037, 82353 ####[facility] .[address] TACROLIMUSon 07-23-2017 Tacrolimus mass conc (Bld) 4.6 ng/mL Low 5.0-20.0 The [facility] Comment on above: Result Comment: The [employer] Tacrolimus assay is a delayed one-step immunoassayfor the quantitative determination of tacrolimus in human whole bloodusing the chemiluminescent microparticle immunoassay (CMIA) technologywith flexible assay protocols, referred to as Chemiflex. Performed By: #### 4 1000, 14470, 51408, 83501, 21262, 33453 ####[facility] [place] [address], [facility] URIC ACID BLOODon 07-23-2017 Urate mass conc 4.7 mg/dL Normal 2.3-6.6 The [facility] Comment on above: Performed By: #### 4 1000, 01541, 17624, 03126, 30366, 20098 ####[facility] [address] CBC W/DIFFon 06-20-2017 ABS BASOPHILS 0.0 10*3/uL Normal 0.0-0.2 The [facility] Comment on above: Performed By: #### 4 1000, 17455, 90232, 00640, 29262, 54977 ####[facility] [address] ABS IMM GRANS 0.0 10*3/uL Normal 0.0-0.2 The [facility] Comment on above: Performed By: #### 4 1000, 41451, 07216, 89204, 23946, 07589 ####[facility] [address] ABS NEUTROPHILS 4.2 10*3/uL Normal 1.6-7.6 The [facility] Comment on above: Performed By: #### 4 1000, 14292, 04740, 55146, 55693, 56319 ####[facility] [address] Basophils Auto #/vol (Bld) 0.2 % Normal 0.0-1.0 The [facility] Comment on above: Performed By: #### 4 1000, 93309, 37391, 79680, 96423, 72766 ####[facility] [address] Eosinophils Auto #/vol (Bld) 0.1 10*3/uL Normal 0.0-0.5 The [facility] Comment on above: Performed By: #### 4 1000, 94748, 09103, 24291, 62676, 84459 ####[facility] [address] Eosinophils/100 WBC Auto (Bld) 1.5 % Normal 0.0-6.0 The [facility] Comment on above: Performed By: #### 4 1000, 09634, 01145, 05511, 72851, 55510 ####[facility] [address] Erythrocyte distribution width Auto Ratio (RBC) 13.4 % Normal 11.5-15.0 The [facility] Comment on above: Performed By: #### 4 1000, 09646, 72445, 79208, 78661, 48683 ####[facility]3000 [facility].[address] Hematocrit Auto Volume Fraction (Bld) 44.9 % Normal 36.0-45.0 The [facility] Comment on above: Performed By: #### 4 1000, 27466, 27348, 30176, 84935, 97979 ####[facility]3000 [facility].[address] Hemoglobin mass conc (Bld) 14.9 g/dL Normal 12.0-15.0 The [facility] Comment on above: Performed By: #### 4 1000, 38893, 58315, 75266, 21534, 63511 ####[facility] [address] IMMATURE GRANS 0.2 % Normal 0.0-1.0 The [facility] Comment on above: Performed By: #### 4 1000, 79298, 67399, 45069, 26510, 59818 ####[facility] [address] Lymphocytes Auto #/vol (Bld) 1.1 10*3/uL Low 1.2-4.0 The [facility] Comment on above: Performed By: #### 4 1000, 75323, 60428, 56604, 64909, 07957 ####[facility] [address] Lymphocytes/100 WBC Auto (Bld) 17.4 % Low 20.0-45.0 The [facility] Comment on above: Performed By: #### 4 1000, 90150, 03033, 17538, 57702, 93917 ####[facility] MCH Auto Entitic mass (RBC) 29.2 pg Normal 27.0-33.0 The [facility] Comment on above: Performed By: #### 4 1000, 72424, 51901, 24299, 05314, 18508 ####[facility] MCHC Auto mass conc (RBC) 33.2 g/dL Normal 32.0-35.0 The [facility] Comment on above: Performed By: #### 4 1000, 78533, 24494, 26864, 68665, 26951 ####[facility] MCV Auto Entitic volume (RBC) 87.9 fL Normal 82.0-98.0 The [facility] Comment on above: Performed By: #### 4 1000, 80889, 83346, 73324, 61105, 54080 ####[facility] Monocytes Auto #/vol (Bld) 0.7 10*3/uL Normal 0.1-1.0 The [facility] Comment on above: Performed By: #### 4 1000, 30897, 95481, 14574, 52901, 81989 ####[facility] MONOS 11.3 % Normal 5.0-12.0 The [facility] Comment on above: Performed By: #### 4 1000, 40096, 96500, 04131, 26159, 80877 ####[facility] Neutrophils/100 WBC Auto (Bld) 69.4 % Normal 40.0-72.0 The [facility] Comment on above: Performed By: #### 4 1000, 95435, 29209, 53391, 32397, 88975 ####[facility] Nucleated RBC/100 WBC Ratio (Bld) 0 % Normal 0-0 The [facility] Comment on above: Performed By: #### 4 1000, 70806, 35375, 71121, 78398, 39586 ####[facility] PLAT CNT 198 10*3/uL Normal 150-400 The [facility] Comment on above: Performed By: #### 4 1000, 00975, 10161, 08682, 42484, 35369 ####[facility] [address] RBC Auto #/vol (Bld) 5.11 10*6/uL High 3.80-5.00 [facility] Comment on above: Performed By: #### 4 1000, 62179, 40202, 71108, 16749, 68300 ####[facility]3000 [facility].[address] WBC Auto #/vol (Bld) 6.0 10*3/uL Normal 4.0-10.6 [facility] Comment on above: Performed By: #### 4 1000, 92681, 21459, 04969, 82248, 88973 ####[facility]3000 [facility].[address] COMP METABOLIC PANELon 06-20 Albumin mass conc 4.4 g/dL Normal 3.5-5.7 The [facility] Comment on above: Performed By: #### 4 1000, 40267, 21720, 62342, 80901, 02545 ####[facility] ALKALINE PHOSPH 133 IU/L High 34-104 The [facility] Comment on above: Performed By: #### 4 1000, 22818, 51958, 05158, 87062, 60826 ####[facility] [place] [address], [facility] ALT enzyme act/vol 16 U/L Normal 7-52 The [facility] Comment on above: Performed By: #### 4 1000, 78223, 24823, 80019, 01669, 63423 ####[facility] [place] [address], [place] AST enzyme act/vol 21 U/L Normal 13-39 The [facility] Comment on above: Performed By: #### 4 1000, 66083, 44258, 49602, 47350, 10299 ####[facility] [place] [address], [facility] Bilirubin mass conc 0.8 mg/dL Normal 0.3-1.0 The [facility] Comment on above: Performed By: #### 4 1000, 99793, 04171, 58738, 43196, 33091 ####[facility] [place] [address], [facility] Calcium mass conc 10.0 mg/dL Normal 8.6-10.3 The [facility] Comment on above: Performed By: #### 4 1000, 35215, 64289, 72188, 18635, 38035 ####[facility] [place] [address], [place] Chloride molar conc 106 mmol/L Normal 98-107 The [facility] Comment on above: Performed By: #### 4 1000, 05710, 62234, 27720, 07670, 04314 ####[facility] [place] [address], [place] CO2 molar conc 27 mmol/L Normal 21-31 The [facility] Comment on above: Performed By: #### 4 1000, 09468, 04259, 34853, 60012, 03368 ####[facility] [place] [address], [facility] Creatinine mass conc 0.74 mg/dL Normal 0.60-1.20 The [facility] Comment on above: Performed By: #### 4 1000, 79292, 78136, 44831, 36570, 67442 ####[facility] [place] [address], [place] GFR/1.73 sq M predicted among blacks MDRD vol rate/area (S/P/Bld) mL/min/{1.73_m2} Normal >60 The [facility] Comment on above: Performed By: #### 4 1000, 29158, 41705, 27219, 97501, 42819 ####[facility] [place] [address], [facility] GFR/1.73 sq M predicted among non-blacks MDRD vol rate/area (S/P/Bld) mL/min/{1.73_m2} Normal >60 The [facility] Comment on above: Performed By: #### 4 1000, 11028, 07226, 41517, 26259, 71294 ####[facility] [place] [address], [facility] Glucose mass conc 95 mg/dL Normal 70-100 The [facility] Comment on above: Performed By: #### 4 1000, 64118, 60842, 70383, 25832, 75295 ####[facility] [place] [address], [place] Potassium molar conc 3.8 mmol/L Normal 3.5-5.1 The [facility] Comment on above: Performed By: #### 4 1000, 33178, 95187, 64715, 47813, 51688 ####[facility] [place] [address], [place] Protein mass conc 7.3 g/dL Normal 6.0-8.3 The [facility] Comment on above: Performed By: #### 4 1000, 03587, 70999, 91119, 72846, 58360 ####[facility] Sodium molar conc 137 mmol/L Normal 136-145 The [facility] Comment on above: Performed By: #### 4 1000, 08726, 13638, 84071, 70435, 04551 ####[facility] Urea nitrogen mass conc 16 mg/dL Normal 7-25 The [facility] Comment on above: Performed By: #### 4 1000, 89413, 14985, 91995, 70755, 46917 ####[facility] DIRECT BILIon 06-20-2017 Bilirubin.direct mass conc 0.1 mg/dL Normal 0.0-0.2 The [facility] Comment on above: Performed By: #### 4 1000, 83767, 67305, 54241, 47272, 52609 ####[facility] EVEROLIMUS 72834kg 8 EVEROLIMUS 6.7 ng/mL Normal The [facility] Comment on above: Result Comment: [...] the transplantcenter.Test developed and characteristics determined by [facility]. See Compliance Statement B: [facility]/CSPerformed by [employer],[address] [facility] [place] [address] wes.[facility], Leonid Antonio MD - Lab. Director LIPID PROFILEon 06-20-2017 Cholesterol in HDL mass conc 45 mg/dL Normal 23-92 The [facility] Comment on above: Result Comment: Slig ht variation in normal range could be due to gender and/or age.HDL CHOLESTEROL REFERENCE RANGE:20 years and older Cardiovascular Risk> or =60 mg/dL [id number] TO 59 mg/dL Low Risk<40 mg/dL High Risk Performed By: #### 4 1000, 39023, 35441, 57557, 70551, 88424 ####[facility] [place] [address], [facility] Cholesterol in LDL mass conc 58 mg/dL Normal 0-130 [facility] [facility] Comment on above: Result Comment: LDL IS A CALCULATIONLDL IS ONLY VALID IF THE TRIG IS LESS THAN 400. Performed By: #### 4 1000, 57161, 46500, 85074, 86870, 25223 ####[facility] [place] [address], [place] Cholesterol mass conc 126 mg/dL Normal 120-200 The [facility] Comment on above: Result Comment: CHOL ESTEROL REFERENCE RANGE:20 YEARS AND OLDER CARDIOVASCULAR RISKLess than 200 mg/dl Low Eqij000 to 239 mg/dl Borderline Ueyz493 mg/dl and greater High Risk Performed By: #### 4 1000, 16660, 94672, 52276, 02195, 99067 ####[facility] [place] [address], [place] Cholesterol.total/Cho lesterol in HDL mass ratio 2.8 {ratio} Normal .0-4.5 The [facility] Comment on above: Performed By: #### 4 1000, 79099, 21353, 57695, 26740, 09997 ####[facility] NON-HDL CHOLESTEROL 81 mg/dL Normal The [facility] Comment on above: Performed By: #### 4 1000, 31074, 08754, 35203, 96698, 01642 ####[facility] Triglyceride mass conc 113 mg/dL Normal 40-149 The [facility] Comment on above: Result Comment: TRIG LYCERIDE REFERENCE RANGE:20 YEARS AND OLDER CARDIOVASCULAR RISKLESS THAN 150 mg/dl LOW [id number] TO 199 mg/dl BORDERLINE ONLZ190 mg/dl AND GREATER HIGH RISK Performed By: #### 4 1000, 41943, 03728, 49363, 38051, 79794 ####[facility] VLDL CHOL 23 mg/dL Normal 0-40 The [facility] Comment on above: Performed By: #### 4 1000, 25343, 46603, 46095, 13136, 12075 ####[facility] MAGNESIUM BLOODon 06-20-2017 Magnesium mass conc 1.9 mg/dL Normal 1.9-2.7 The [facility] Comment on above: Performed By: #### 4 1000, 82605, 66519, 32339, 81179, 16896 ####[facility] [place] [address], [facility] PHOSPHORUS BLOODon 8 Phosphate mass conc 3.1 mg/dL Normal 2.5-5.0 The [facility] Comment on above: Performed By: #### 4 1000, 65139, 77064, 09180, 08080, 60575 ####[facility] TACROLIMUSon 06-20-2017 Tacrolimus mass conc (Bld) 4.2 ng/mL Low 5.0-20.0 The [facility] Comment on above: Result Comment: The [employer] REPORT DEVELOPER Tacrolimus assay is a delayed one-step immunoassayfor the quantitative determination of tacrolimus in human whole bloodusing the chemiluminescent microparticle immunoassay (CMIA) technologywith flexible assay protocols, referred to as Chemiflex. Performed By: #### 4 1000, 02998, 48911, 31831, 75059, 04154 ####[facility] URIC ACID BLOODon 06-20-2017 Urate mass conc 4.3 mg/dL Normal 2.3-6.6 The [facility] Comment on above: Performed By: #### 4 1000, 24145, 66918, 07121, 62780, 94003 ####[facility] BK VIRUS QUANTITATION PCR BL OODon 05-27-2017 BKV QUANT PCR Not detected Normal The [facility] Comment on above: Result Comment: Meth od: BK virus was measured by quantitative polymerase chain reactionusing a TaqMan probe targeting the polyomavirus BK HAND STONECUTTER-1 gene.The lower limit of quantitation of the assay is 500 copies of BK genomeper milliliter of plasma or urine, and any detectable BK DNA below thatlevel is reported as: Detected, <500 copies/ml. Serial BK virusmeasurement can be used to monitor disease activity. (Reference:Kelsie vaughanl. J CLIN MICRO 2004; 42:2645-6208).This test was developed and its performance characteristics determinedby the [facility] Molecular Diagnostics Laboratory. It has not been approvedby the US Food and Drug Administration. However, such approval is notrequired for clinical implementation, and test results have been shownto be clinically useful. This laboratory is CAP accredited and CLIAcertified to perform high complexity testing. Performed By: #### 4 1000, 83274, 60717, 87508, 53276, 33622 ####[facility] .[address] LOG 10 COPIES Not detected Normal The [facility] Comment on above: Performed By: #### 4 1000, 95082, 87168, 82223, 16799, 23835 ####[facility] CBC W/DIFFon 05-27-2017 ABS BASOPHILS 0.0 10*3/uL Normal 0.0-0.2 The [facility] Comment on above: Performed By: #### 4 1000, 59914, 35486, 73716, 16501, 96952 ####[facility] ABS IMM GRANS 0.0 10*3/uL Normal 0.0-0.2 The [facility] Comment on above: Performed By: #### 4 1000, 67807, 55399, 10941, 01109, 73393 ####[facility] ABS NEUTROPHILS 4.8 10*3/uL Normal 1.6-7.6 The [facility] Comment on above: Performed By: #### 4 1000, 24950, 22432, 73300, 15123, 63832 ####[facility] Basophils Auto #/vol (Bld) 0.0 % Normal 0.0-1.0 The [facility] Comment on above: Performed By: #### 4 1000, 63885, 71812, 11463, 47023, 57880 ####[facility] Eosinophils Auto #/vol (Bld) 0.1 10*3/uL Normal 0.0-0.5 The [facility] Comment on above: Performed By: #### 4 1000, 98437, 92061, 86720, 06892, 27229 ####[facility] Eosinophils/100 WBC Auto (Bld) 1.1 % Normal 0.0-6.0 The [facility] Comment on above: Performed By: #### 4 1000, 63949, 43097, 05858, 31930, 42609 ####[facility] Erythrocyte distribution width Auto Ratio (RBC) 13.5 % Normal 11.5-15.0 The [facility] Comment on above: Performed By: #### 4 1000, 09453, 05895, 04277, 03323, 81944 ####[facility] Hematocrit Auto Volume Fraction (Bld) 46.1 % High 36.0-45.0 The [facility] Comment on above: Performed By: #### 4 1000, 11353, 17315, 66360, 19912, 35779 ####[facility] Hemoglobin mass conc (Bld) 15.0 g/dL Normal 12.0-15.0 The [facility] Comment on above: Performed By: #### 4 1000, 63935, 21317, 06184, 87090, 20183 ####[facility] IMMATURE GRANS 0.3 % Normal 0.0-1.0 The [facility] Comment on above: Performed By: #### 4 1000, 43008, 14133, 09252, 12917, 12521 ####[facility] Lymphocytes Auto #/vol (Bld) 1.0 10*3/uL Low 1.2-4.0 The [facility] Comment on above: Performed By: #### 4 1000, 29898, 56576, 36521, 42971, 36954 ####[facility] Lymphocytes/100 WBC Auto (Bld) 15.7 % Low 20.0-45.0 The [facility] Comment on above: Performed By: #### 4 1000, 38623, 52049, 14748, 69663, 51065 ####[facility] MCH Auto Entitic mass (RBC) 28.8 pg Normal 27.0-33.0 The [facility] Comment on above: Performed By: #### 4 1000, 40373, 64637, 48846, 04393, 15141 ####[facility] [facility].[address] MCHC Auto mass conc (RBC) 32.5 g/dL Normal 32.0-35.0 The [facility] Comment on above: Performed By: #### 4 1000, 08656, 83426, 35131, 52705, 08088 ####[facility] MCV Auto Entitic volume (RBC) 88.7 fL Normal 82.0-98.0 The [facility] Comment on above: Performed By: #### 4 1000, 58540, 48515, 25180, 84388, 05150 ####[facility] [facility].[address] Monocytes Auto #/vol (Bld) 0.8 10*3/uL Normal 0.1-1.0 The [facility] Comment on above: Performed By: #### 4 1000, 61106, 83244, 79988, 30945, 01791 ####[facility] MONOS 11.4 % Normal 5.0-12.0 The [facility] Comment on above: Performed By: #### 4 1000, 83170, 52087, 82276, 21252, 67179 ####[facility] [place] [address], [facility] Neutrophils/100 WBC Auto (Bld) 71.5 % Normal 40.0-72.0 The [facility] Comment on above: Performed By: #### 4 1000, 62853, 31405, 47293, 94134, 47319 ####[facility] Nucleated RBC/100 WBC Ratio (Bld) 0 % Normal 0-0 The [facility] Comment on above: Performed By: #### 4 1000, 89117, 67081, 76807, 68371, 61100 ####[facility] [place] [address], [facility] PLAT CNT 199 10*3/uL Normal 150-400 The [facility] Comment on above: Performed By: #### 4 1000, 77425, 57852, 70839, 56827, 02658 ####[facility] [place] [address], [facility] RBC Auto #/vol (Bld) 5.20 10*6/uL High 3.80-5.00 Th e [facility] Comment on above: Performed By: #### 4 1000, 62761, 00606, 69571, 97440, 42012 ####[facility] [place] [address], [facility] WBC Auto #/vol (Bld) 6.6 10*3/uL Normal 4.0-10.6 [facility] Comment on above: Performed By: #### 4 1000, 88976, 57815, 06828, 70136, 78083 ####[facility] COMP METABOLIC PANELon 05-27 Albumin mass conc 4.6 g/dL Normal 3.5-5.7 The [facility] Comment on above: Performed By: #### 4 1000, 92868, 37228, 96488, 37349, 92117 ####[facility] [place] [address], [facility] ALKALINE PHOSPH 105 IU/L High 34-[address] [facility] Comment on above: Performed By: #### 4 1000, 25954, 28498, 30628, 68370, 22841 ####[facility] [place] [address], [facility] ALT enzyme act/vol 20 U/L Normal 7-52 The [facility] Comment on above: Performed By: #### 4 1000, 53212, 78070, 89712, 99531, 39337 ####[facility] [place] [address], [facility] AST enzyme act/vol 23 U/L Normal 13-39 The [facility] Comment on above: Performed By: #### 4 1000, 47354, 43521, 88399, 52801, 07621 ####[facility] [place] [address], [facility] Bilirubin mass conc 0.6 mg/dL Normal 0.3-1.0 The [facility] Comment on above: Performed By: #### 4 1000, 59985, 18843, 49292, 85943, 44698 ####[facility] [place] [address], [facility] Calcium mass conc 9.8 mg/dL Normal 8.6-10.3 The [facility] Comment on above: Performed By: #### 4 1000, 38673, 63500, 19105, 92452, 24109 ####[facility] [place] [address], [facility] Chloride molar conc 106 mmol/L Normal 98-[address] [facility] Comment on above: Performed By: #### 4 1000, 08966, 40066, 12974, 65619, 87432 ####[facility] [place] [address], [facility] CO2 molar conc 30 mmol/L Normal 21-31 The [facility] Comment on above: Performed By: #### 4 1000, 72918, 55954, 26329, 80604, 36629 ####[facility] [place] [address], [facility] Creatinine mass conc 0.80 mg/dL Normal 0.60-1.20 [facility] Comment on above: Performed By: #### 4 1000, 45911, 36789, 40526, 66304, 68460 ####[facility] [place] [address], [facility] GFR/1.73 sq M predicted among blacks MDRD vol rate/area (S/P/Bld) mL/min/{1.73_m2} Normal >60 The [facility] Comment on above: Performed By: #### 4 1000, 56228, 18016, 20915, 51610, 04927 ####[facility] [place] [address], [facility] GFR/1.73 sq M predicted among non-blacks MDRD vol rate/area (S/P/Bld) mL/min/{1.73_m2} Normal >60 The [facility] Comment on above: Performed By: #### 4 1000, 57393, 92608, 65232, 54687, 83256 ####[facility] [place] [address], [place] Glucose mass conc 90 mg/dL Normal 70-100 [facility] Comment on above: Performed By: #### 4 1000, 68035, 10493, 80483, 37027, 10114 ####[facility] [place] [address], [facility] Potassium molar conc 4.0 mmol/L Normal 3.5-5.1 The [facility] Comment on above: Performed By: #### 4 1000, 86989, 30545, 39330, 35955, 60354 ####[facility] Protein mass conc 6.8 g/dL Normal 6.0-8.3 The [facility] Comment on above: Performed By: #### 4 1000, 51316, 99203, 62578, 44373, 61677 ####[facility] Sodium molar conc 138 mmol/L Normal 136-145 The [facility] Comment on above: Performed By: #### 4 1000, 96956, 96831, 53001, 28658, 77031 ####[facility] Urea nitrogen mass conc 14 mg/dL Normal 7-25 The [facility] Comment on above: Performed By: #### 4 1000, 60938, 92182, 50694, 03002, 43494 ####[facility] DIRECT BILIon 05-27-2017 Bilirubin.direct mass conc 0.1 mg/dL Normal 0.0-0.2 The [facility] Comment on above: Performed By: #### 4 1000, 34943, 30386, 76680, 56865, 50370 ####[facility] EVEROLIMUS 73456sw 8 EVEROLIMUS 5.6 ng/mL Normal The [facility] Comment on above: Result Comment: [...] the transplantcenter.Test developed and characteristics determined by [employer]. See Compliance Statement B: [employer]/CSPerformed by [employer],[address] [place] [id number] fye.[employer], Leonid Antonio MD - Lab. Director HEMOGLOBIN A1Con 05-27-2017 Glucose mass conc 108 mg/dL Normal 70-126 [facility] Comment on above: Performed By: #### 4 1000, 85881, 22139, 52701, 50576, 56923 ####[facility] [place] [address], [facility] Hemoglobin A1c/Hemoglobin.total mass fraction (Bld) 5.4 % Normal 4.0-6.0 The [facility] Comment on above: Performed By: #### 4 1000, 66099, 84004, 08171, 41177, 18796 ####[facility] [place] [address], [facility] LIPID PROFILEon 05-27-2017 Cholesterol in HDL mass conc 39 mg/dL Normal 23-92 The [facility] Comment on above: Result Comment: Slig ht variation in normal range could be due to gender and/or age.HDL CHOLESTEROL REFERENCE RANGE:20 years and older Cardiovascular Risk> or =60 mg/dL [id number] TO 59 mg/dL Low Risk<40 mg/dL High Risk Performed By: #### 4 1000, 38935, 36083, 08634, 70420, 24900 ####[facility] [place] [address], [facility] Cholesterol in LDL mass conc 52 mg/dL Normal 0-130 The [facility] Comment on above: Result Comment: LDL IS A CALCULATIONLDL IS ONLY VALID IF THE TRIG IS LESS THAN 400. Performed By: #### 4 1000, 05393, 16455, 26509, 30769, 73820 ####[facility] [place] [address], [facility] Cholesterol mass conc 117 mg/dL Low 120-200 The [facility] Comment on above: Result Comment: CHOL ESTEROL REFERENCE RANGE:20 YEARS AND OLDER CARDIOVASCULAR RISKLess than 200 mg/dl Low Gnmm077 to 239 mg/dl Borderline Nseb751 mg/dl and greater High Risk Performed By: #### 4 1000, 19518, 53120, 76025, 99124, 07734 ####[facility] [place] [address], [facility] Cholesterol.total/Cho lesterol in HDL mass ratio 3.0 {ratio} Normal .0-4.5 The [facility] Comment on above: Performed By: #### 4 1000, 70137, 60570, 40559, 71025, 04777 ####[facility] [facility] [place] [address], [facility] NON-HDL CHOLESTEROL 78 mg/dL Normal The [facility] Comment on above: Performed By: #### 4 1000, 33742, 58572, 65336, 32832, 24684 ####[facility] [place] [address], [place] Triglyceride mass conc 131 mg/dL Normal 40-149 The [facility] Comment on above: Result Comment: TRIG LYCERIDE REFERENCE RANGE:20 YEARS AND OLDER CARDIOVASCULAR RISKLESS THAN 150 mg/dl LOW [id number] TO 199 mg/dl BORDERLINE HEWE151 mg/dl AND GREATER HIGH RISK Performed By: #### 4 1000, 32849, 13594, 88384, 80459, 16104 ####[facility] VLDL CHOL 26 mg/dL Normal 0-40 The [facility] Comment on above: Performed By: #### 4 1000, 10578, 32096, 09565, 47805, 95286 ####[facility] MAGNESIUM BLOODon 05-27-2017 Magnesium mass conc 2.1 mg/dL Normal 1.9-2.7 The [facility] Comment on above: Performed By: #### 4 1000, 31946, 88163, 28029, 50531, 55386 ####[facility] PHOSPHORUS BLOODon 8 Phosphate mass conc 3.5 mg/dL Normal 2.5-5.0 The [facility] Comment on above: Performed By: #### 4 1000, 34437, 55675, 82654, 05824, 05056 ####[facility] TACROLIMUSon 05-27-2017 Tacrolimus mass conc (Bld) 4.4 ng/mL Low 5.0-20.0 The [facility] Comment on above: Result Comment: The [employer] REPORT DEVELOPER Tacrolimus assay is a delayed one-step immunoassayfor the quantitative determination of tacrolimus in human whole bloodusing the chemiluminescent microparticle immunoassay (CMIA) technologywith flexible assay protocols, referred to as Chemiflex. Performed By: #### 4 1000, 89919, 58362, 86153, 47879, 98907 ####[facility] URIC ACID BLOODon 05-27-2017 Urate mass conc 4.6 mg/dL Normal 2.3-6.6 The [facility] Comment on above: Performed By: #### 4 1000, 51741, 90477, 47402, 01456, 54930 ####[facility] CBC W/DIFFon 04-29-2017 ABS BASOPHILS 0.0 10*3/uL Normal 0.0-0.2 The [facility] Comment on above: Performed By: #### 4 1000, 49530, 59987, 47936, 84297, 59517 ####[facility] ABS IMM GRANS 0.0 10*3/uL Normal 0.0-0.2 The [facility] Comment on above: Performed By: #### 4 1000, 12306, 07845, 64992, 78872, 78351 ####[facility] ABS NEUTROPHILS 4.6 10*3/uL Normal 1.6-7.6 The [facility] Comment on above: Performed By: #### 4 1000, 66933, 86487, 15752, 90369, 42481 ####[facility] Basophils Auto #/vol (Bld) 0.3 % Normal 0.0-1.0 The [facility] Comment on above: Performed By: #### 4 1000, 12556, 06734, 56969, 83921, 95051 ####[facility] Eosinophils Auto #/vol (Bld) 0.1 10*3/uL Normal 0.0-0.5 The [facility] Comment on above: Performed By: #### 4 1000, 00849, 70368, 71325, 26569, 69192 ####[facility] Eosinophils/100 WBC Auto (Bld) 1.7 % Normal 0.0-6.0 The [facility] Comment on above: Performed By: #### 4 1000, 12261, 48273, 05953, 62016, 81825 ####[facility] Erythrocyte distribution width Auto Ratio (RBC) 13.7 % Normal 11.5-15.0 The [facility] Comment on above: Performed By: #### 4 1000, 98255, 56094, 28065, 11768, 05135 ####[facility] Hematocrit Auto Volume Fraction (Bld) 45.0 % Normal 36.0-45.0 The [facility] Comment on above: Performed By: #### 4 1000, 78580, 80312, 85592, 48178, 94547 ####[facility] Hemoglobin mass conc (Bld) 14.9 g/dL Normal 12.0-15.0 The [facility] Comment on above: Performed By: #### 4 1000, 78651, 50177, 60747, 76083, 16823 ####[facility] IMMATURE GRANS 0.3 % Normal 0.0-1.0 The [facility] Comment on above: Performed By: #### 4 1000, 43626, 51180, 97224, 18197, 60455 ####[facility] Lymphocytes Auto #/vol (Bld) 0.9 10*3/uL Low 1.2-4.0 The [facility] Comment on above: Performed By: #### 4 1000, 53019, 17846, 60992, 39619, 19541 ####[facility] Lymphocytes/100 WBC Auto (Bld) 14.2 % Low 20.0-45.0 The [facility] Comment on above: Performed By: #### 4 1000, 40259, 23941, 35372, 24023, 72108 ####[facility] [facility].[address] MCH Auto Entitic mass (RBC) 29.4 pg Normal 27.0-33.0 The [facility] Comment on above: Performed By: #### 4 1000, 17959, 10318, 28311, 17076, 89980 ####[facility] MCHC Auto mass conc (RBC) 33.1 g/dL Normal 32.0-35.0 The [facility] Comment on above: Performed By: #### 4 1000, 28500, 73541, 61686, 90722, 31836 ####[facility] MCV Auto Entitic volume (RBC) 88.8 fL Normal 82.0-98.0 The [facility] Comment on above: Performed By: #### 4 1000, 37087, 99131, 63470, 07791, 59294 ####[facility] Monocytes Auto #/vol (Bld) 0.8 10*3/uL Normal 0.1-1.0 The [facility] Comment on above: Performed By: #### 4 1000, 73489, 07426, 53351, 76179, 43436 ####[facility] [facility].[address] MONOS 12.2 % High 5.0-12.0 The [facility] Comment on above: Performed By: #### 4 1000, 25490, 35370, 67574, 40855, 61581 ####[facility] Neutrophils/100 WBC Auto (Bld) 71.3 % Normal 40.0-72.0 The [facility] Comment on above: Performed By: #### 4 1000, 09194, 09687, 87625, 33207, 94657 ####[facility] Nucleated RBC/100 WBC Ratio (Bld) 0 % Normal 0-0 The [facility] Comment on above: Performed By: #### 4 1000, 66905, 43445, 13462, 31548, 54677 ####[facility] PLAT CNT 215 10*3/uL Normal 150-400 The [facility] Comment on above: Performed By: #### 4 1000, 91749, 09200, 07619, 05653, 03618 ####[facility] RBC Auto #/vol (Bld) 5.07 10*6/uL High 3.80-5.00 Th e [facility] Comment on above: Performed By: #### 4 1000, 20136, 25894, 76271, 49858, 85835 ####[facility] WBC Auto #/vol (Bld) 6.5 10*3/uL Normal 4.0-10.6 The [facility] Comment on above: Performed By: #### 4 1000, 11639, 40447, 72219, 83256, 39298 ####[facility] COMP METABOLIC PANELon 04-29 Albumin mass conc 4.4 g/dL Normal 3.5-5.7 The [facility] Comment on above: Performed By: #### 4 1000, 80703, 98043, 77650, 78282, 58728 ####[facility] [place] [address], [facility] ALKALINE PHOSPH 114 IU/L High 34-104 The [facility] Comment on above: Performed By: #### 4 1000, 60755, 15298, 94036, 99629, 34500 ####[facility] [place] [address], [facility] ALT enzyme act/vol 15 U/L Normal 7-52 The [facility] Comment on above: Performed By: #### 4 1000, 34914, 42808, 65116, 28504, 09946 ####[facility] [place] [address], [facility] AST enzyme act/vol 19 U/L Normal 13-39 The [facility] Comment on above: Performed By: #### 4 1000, 26373, 31729, 55313, 81610, 47929 ####[facility] [place] [address], [facility] Bilirubin mass conc 0.7 mg/dL Normal 0.3-1.0 The [facility] Comment on above: Performed By: #### 4 1000, 28322, 37060, 20906, 07537, 25796 ####[facility] [place] [address], [place] Calcium mass conc 9.6 mg/dL Normal 8.6-10.3 The [facility] Comment on above: Performed By: #### 4 1000, 17198, 49717, 60944, 24091, 28648 ####[facility] [place] [address], [place] Chloride molar conc 103 mmol/L Normal 98-107 The [facility] Comment on above: Performed By: #### 4 1000, 60756, 86981, 73684, 41405, 61417 ####[facility] [place] [address], [facility] CO2 molar conc 29 mmol/L Normal 21-31 The [facility] Comment on above: Performed By: #### 4 1000, 29294, 03253, 15095, 68329, 93443 ####[facility] [place] [address], [facility] Creatinine mass conc 0.79 mg/dL Normal 0.60-1.20 [facility] Comment on above: Performed By: #### 4 1000, 87102, 67785, 70210, 15289, 59664 ####[facility] [place] [address], [facility] GFR/1.73 sq M predicted among blacks MDRD vol rate/area (S/P/Bld) mL/min/{1.73_m2} Normal >60 The [facility] Comment on above: Performed By: #### 4 1000, 20390, 87413, 92803, 95787, 33625 ####[facility] [place] [address], [facility] GFR/1.73 sq M predicted among non-blacks MDRD vol rate/area (S/P/Bld) mL/min/{1.73_m2} Normal >60 The [facility] Comment on above: Performed By: #### 4 1000, 06507, 56955, 48036, 49941, 29957 ####[facility] [place] [address], [facility] Glucose mass conc 90 mg/dL Normal 70-100 [facility] Comment on above: Performed By: #### 4 1000, 50808, 69924, 49670, 18862, 21792 ####[facility] [place] [address], [facility] Potassium molar conc 3.8 mmol/L Normal 3.5-5.1 The [facility] Comment on above: Performed By: #### 4 1000, 37198, 21675, 89082, 11725, 18995 ####[facility] [place] [address], [facility] Protein mass conc 7.2 g/dL Normal 6.0-8.3 The [facility] Comment on above: Performed By: #### 4 1000, 04071, 67576, 81749, 92299, 25714 ####[facility] [place] [address], [facility] Sodium molar conc 140 mmol/L Normal 136-145 The [facility] Comment on above: Performed By: #### 4 1000, 54865, 14014, 87853, 65017, 94680 ####[facility] [place] [address], [facility] Urea nitrogen mass conc 15 mg/dL Normal 7-25 The [facility] Comment on above: Performed By: #### 4 1000, 23203, 79291, 75860, 57220, 42265 ####[facility] [place] [address], [facility] DIRECT BILIon 04-29-2017 Bilirubin.direct mass conc 0.1 mg/dL Normal 0.0-0.2 The [facility] Comment on above: Order Comment: Liver Battery conflicts with Comprehensive Metabolic Panel. Liver Battery canceled and Direct Bilirubin added. Performed By: #### 4 1000, 72925, 98347, 18028, 31529, 57681 ####[facility] [place] [address], [facility] EVEROLIMUS [id number] EVEROLIMUS 5.4 ng/mL Normal The [facility] Comment on above: Result Comment: [...] the transplantcenter.Test developed and characteristics determined by [employer]. See Compliance Statement B: [employer]/CSPerformed by [employer],[address] [place] [id number] vji.[employer], Leonid Antonio MD - Lab. Director LIPID PROFILEon 04-29-2017 Cholesterol in HDL mass conc 49 mg/dL Normal 23-92 [facility] Comment on above: Result Comment: Slig ht variation in normal range could be due to gender and/or age.HDL CHOLESTEROL REFERENCE RANGE:20 years and older Cardiovascular Risk> or =60 mg/dL Mdudbypcv00 TO 59 mg/dL Low Risk<40 mg/dL High Risk Performed By: #### 4 1000, 42241, 45332, 40114, 03350, 29331 ####[facility] Cholesterol in LDL mass conc 52 mg/dL Normal 0-130 The [facility] Comment on above: Result Comment: LDL IS A CALCULATIONLDL IS ONLY VALID IF THE TRIG IS LESS THAN 400. Performed By: #### 4 1000, 34251, 34464, 00401, 14079, 41903 ####[facility] [place] [address], [facility] Cholesterol mass conc 122 mg/dL Normal 120-200 The [facility] Comment on above: Result Comment: CHOL ESTEROL REFERENCE RANGE:20 YEARS AND OLDER CARDIOVASCULAR RISKLess than 200 mg/dl Low Iqzk537 to 239 mg/dl Borderline Tewh090 mg/dl and greater High Risk Performed By: #### 4 1000, 41942, 49221, 30611, 95392, 60532 ####[facility] [place] [address], [facility] Cholesterol.total/Cho lesterol in HDL mass ratio 2.5 {ratio} Normal .0-4.5 [facility] Comment on above: Performed By: #### 4 1000, 71596, 35881, 83575, 27814, 99541 ####[facility] NON-HDL CHOLESTEROL 73 mg/dL Normal [facility] Comment on above: Performed By: #### 4 1000, 58852, 34878, 74440, 75866, 67959 ####[facility] [facility].[address] Triglyceride mass conc 106 mg/dL Normal 40-149 The [facility] Comment on above: Result Comment: TRIG LYCERIDE REFERENCE RANGE:20 YEARS AND OLDER CARDIOVASCULAR RISKLESS THAN 150 mg/dl LOW [id number] TO 199 mg/dl BORDERLINE BGLR139 mg/dl AND GREATER HIGH RISK Performed By: #### 4 1000, 37025, 23537, 19459, 72246, 79511 ####[facility] [place] [address], [facility] VLDL CHOL 21 mg/dL Normal 0-40 The [facility] Comment on above: Performed By: #### 4 1000, 21962, 03717, 93466, 15649, 21346 ####[facility] [place] [address], [facility] MAGNESIUM BLOODon 04-29-2017 Magnesium mass conc 2.1 mg/dL Normal 1.9-2.7 The [facility] Comment on above: Performed By: #### 4 1000, 85934, 71578, 83539, 94473, 80939 ####[facility] PHOSPHORUS BLOODon 8 Phosphate mass conc 3.3 mg/dL Normal 2.5-5.0 The [facility] Comment on above: Performed By: #### 4 1000, 41661, 42074, 71512, 45539, 29468 ####[facility] .[address] TACROLIMUSon 04-29-2017 Tacrolimus mass conc (Bld) 4.6 ng/mL Low 5.0-20.0 The [facility] Comment on above: Result Comment: The [employer] SSRS REPORT DEVELOPER Tacrolimus assay is a delayed one-step immunoassayfor the quantitative determination of tacrolimus in human whole bloodusing the chemiluminescent microparticle immunoassay (CMIA) technologywith flexible assay protocols, referred to as Chemiflex. Performed By: #### 4 1000, 71763, 28652, 03937, 63917, 15858 ####[place] [address] .[address] URIC ACID BLOODon 04-29-2017 Urate mass conc 4.6 mg/dL Normal 2.3-6.6 The [facility] Comment on above: Performed By: #### 4 1000, 10543, 60388, 17012, 69674, 91038 ####[facility] [place] [address], [facility] CBC W/DIFFon 03-27-2017 Basophils Auto #/vol (Bld) 0.2 % Normal 0.0-2.0 The [facility] Comment on above: Performed By: #### 4 1000, 49285, 01366, 45771, 80768, 63438 ####[facility] Eosinophils/100 WBC Auto (Bld) 1.8 % Normal 0.0-5.0 The [facility] Comment on above: Performed By: #### 4 1000, 45931, 96670, 05492, 85247, 28330 ####[facility] Erythrocyte distribution width Auto Ratio (RBC) 13.6 % Normal 11.5-16.9 The [facility] Comment on above: Performed By: #### 4 1000, 36333, 16780, 23431, 76077, 00061 ####[facility] Hematocrit Auto Volume Fraction (Bld) 47.6 % Normal 36.0-48.0 The [facility] Comment on above: Performed By: #### 4 1000, 07569, 65536, 58294, 92511, 20513 ####[facility] Hemoglobin mass conc (Bld) 15.8 g/dL High 12.0-15.0 The [facility] Comment on above: Performed By: #### 4 1000, 57519, 03444, 35015, 88447, 22089 ####[facility] Lymphocytes/100 WBC Auto (Bld) 14.5 % Low 20.0-40.0 The [facility] Comment on above: Performed By: #### 4 1000, 41467, 05059, 23621, 05844, 94129 ####[facility] [place] [address], [facility] MCH Auto Entitic mass (RBC) 29.0 pg Normal 24.0-32.0 The [facility] Comment on above: Performed By: #### 4 1000, 64293, 53210, 00351, 72940, 37071 ####[facility] MCHC Auto mass conc (RBC) 33.3 g/dL Normal 32.0-36.0 The [facility] Comment on above: Performed By: #### 4 1000, 49942, 02436, 28768, 07407, 57911 ####[facility] MCV Auto Entitic volume (RBC) 87.4 fL Normal 80.0-100.0 The [facility] Comment on above: Performed By: #### 4 1000, 56459, 37099, 10654, 40240, 75274 ####[facility] METHOD Normal RBC Morphology Normal The [facility] Comment on above: Performed By: #### 4 1000, 63298, 30679, 03636, 24395, 51697 ####[facility] MONOS 9.6 % High 2-8 [facility] Comment on above: Performed By: #### 4 1000, 09576, 20773, 47388, 07732, 98641 ####[facility] Neutrophils/100 WBC Auto (Bld) 73.9 % High 50-70 The [facility] Comment on above: Performed By: #### 4 1000, 36856, 93813, 72009, 88530, 17644 ####[facility] PLAT CNT 228 Thou/mm3 Normal 100-400 The [facility] Comment on above: Performed By: #### 4 1000, 99419, 47331, 21683, 44629, 66322 ####[facility] RBC Auto #/vol (Bld) 5.45 mill/mm3 Normal 3.50-5.50 T he [facility] Comment on above: Performed By: #### 4 1000, 42311, 62796, 82205, 10206, 34479 ####[facility] [place] [address], [facility] WBC Auto #/vol (Bld) 6.5 Thou/mm3 Normal 4.0-10.0 Th e [facility] Comment on above: Performed By: #### 4 1000, 61325, 70268, 66019, 55045, 43858 ####[facility] COMP METABOLIC PANELon 03-27 Albumin mass conc 4.7 g/dL Normal 3.5-5.7 The [facility] Comment on above: Performed By: #### 4 1000, 21798, 68863, 34704, 33738, 62501 ####[facility] ALKALINE PHOSPH 99 IU/L Normal 34-104 The [facility] Comment on above: Performed By: #### 4 1000, 56828, 89408, 19706, 05568, 96788 ####[facility] ALT enzyme act/vol 19 U/L Normal 7-52 The [facility] Comment on above: Performed By: #### 4 1000, 41070, 06855, 57626, 59607, 74358 ####[facility] [place] [address], [facility] AST enzyme act/vol 21 U/L Normal 13-39 The [facility] Comment on above: Performed By: #### 4 1000, 58016, 67010, 71443, 52045, 81984 ####[facility] [place] [address], [facility] Bilirubin mass conc 0.6 mg/dL Normal 0.3-1.0 The [facility] Comment on above: Performed By: #### 4 1000, 54126, 21870, 14195, 82412, 09684 ####[facility] [place] [address], [facility] Calcium mass conc 10.2 mg/dL Normal 8.6-10.3 [facility] Comment on above: Performed By: #### 4 1000, 25712, 93488, 43099, 15031, 94015 ####[facility] [place] [address], [facility] Chloride molar conc 104 mmol/L Normal 98-107 The [facility] Comment on above: Performed By: #### 4 1000, 52025, 13950, 72725, 20470, 51400 ####[facility] [place] [address], [facility] CO2 molar conc 28 mmol/L Normal 21-31 The [facility] Comment on above: Performed By: #### 4 1000, 84730, 22749, 75190, 61631, 28370 ####[facility] [place] [address], [facility] Creatinine mass conc 0.78 mg/dL Normal 0.60-1.20 The [facility] Comment on above: Performed By: #### 4 1000, 59257, 85540, 16613, 26221, 81499 ####[facility] [place] [address], [facility] GFR/1.73 sq M predicted among blacks MDRD vol rate/area (S/P/Bld) mL/min/{1.73_m2} Normal >60 The [facility] Comment on above: Performed By: #### 4 1000, 90133, 25458, 13021, 71469, 31412 ####[facility] [place] [address], [facility] GFR/1.73 sq M predicted among non-blacks MDRD vol rate/area (S/P/Bld) mL/min/{1.73_m2} Normal >60 The [facility] Comment on above: Performed By: #### 4 1000, 74105, 72615, 05683, 75726, 74059 ####[facility] [place] [address], [facility] Glucose mass conc 87 mg/dL Normal 70-100 The [facility] Comment on above: Performed By: #### 4 1000, 43585, 07211, 35136, 74668, 73409 ####[facility] [facility] [place] [address], [facility] Potassium molar conc 4.1 mmol/L Normal 3.5-5.1 The [facility] Comment on above: Performed By: #### 4 1000, 81522, 28231, 74743, 21322, 93207 ####[facility] [facility] [place] [address], [facility] Protein mass conc 7.8 g/dL Normal 6.0-8.3 The [facility] Comment on above: Performed By: #### 4 1000, 61616, 91721, 18850, 46405, 47825 ####[facility] [place] [address], [facility] Sodium molar conc 139 mmol/L Normal 136-145 The [facility] Comment on above: Performed By: #### 4 1000, 28116, 56582, 37612, 41460, 15915 ####[facility] [facility] [place] [address], [facility] Urea nitrogen mass conc 19 mg/dL Normal 7-25 The [facility] Comment on above: Performed By: #### 4 1000, 59480, 25489, 07142, 97709, 27863 ####[facility] [place] [address], [facility] DIRECT BILIon 03-27-2017 Bilirubin.direct mass conc 0.1 mg/dL Normal 0.0-0.2 [facility] Comment on above: Performed By: #### 4 1000, 78398, 88817, 47556, 91693, 83848 ####[facility] EVEROLIMUS [id number] 7 EVEROLIMUS 5.3 ng/mL Normal The [facility] Comment on above: Result Comment: [...] the transplantcenter.Test developed and characteristics determined by [employer]. See Compliance Statement B: [facility]/CSPerformed by [employer],[address] [place] [id number] ehb.[employer], Leonid Antonio MD - Lab. Director LIPID PROFILEon 03-27-2017 Cholesterol in HDL mass conc 50 mg/dL Normal 23-92 The [facility] Comment on above: Result Comment: Slig ht variation in normal range could be due to gender and/or age.HDL CHOLESTEROL REFERENCE RANGE:20 years and older Cardiovascular Risk> or =60 mg/dL Fbjyjoqwj21 TO 59 mg/dL Low Risk<40 mg/dL High Risk Performed By: #### 4 1000, 78587, 96667, 77282, 72743, 38975 ####[facility] [place] [address], [facility] Cholesterol in LDL mass conc 66 mg/dL Normal 0-130 The [facility] Comment on above: Result Comment: LDL IS A CALCULATIONLDL IS ONLY VALID IF THE TRIG IS LESS THAN 400. Performed By: #### 4 1000, 42117, 22202, 87117, 00631, 29026 ####[facility] [place] [address], [facility] Cholesterol mass conc 147 mg/dL Normal 120-200 The [facility] Comment on above: Result Comment: CHOL ESTEROL REFERENCE RANGE:20 YEARS AND OLDER CARDIOVASCULAR RISKLess than 200 mg/dl Low Kged982 to 239 mg/dl Borderline Sybt991 mg/dl and greater High Risk Performed By: #### 4 1000, 01337, 71099, 85555, 02541, 28437 ####[facility] [place] [address], [facility] Cholesterol.total/Cho lesterol in HDL mass ratio 2.9 {ratio} Normal .0-4.5 The [facility] Comment on above: Performed By: #### 4 1000, 52502, 16496, 81604, 68210, 63625 ####[facility] [facility] [place] [address], [facility] NON-HDL CHOLESTEROL 97 mg/dL Normal [facility] Comment on above: Performed By: #### 4 1000, 23015, 90917, 79309, 64747, 70996 ####[facility] [place] [address], [place] Triglyceride mass conc 157 mg/dL High 40-149 The [facility] Comment on above: Result Comment: TRIG LYCERIDE REFERENCE RANGE:20 YEARS AND OLDER CARDIOVASCULAR RISKLESS THAN 150 mg/dl LOW [id number] TO 199 mg/dl BORDERLINE [id number] mg/dl AND GREATER HIGH RISK Performed By: #### 4 1000, 11678, 84897, 36355, 89672, 38272 ####[facility] VLDL CHOL 31 mg/dL Normal 0-40 The [facility] Comment on above: Performed By: #### 4 1000, 76868, 52199, 41705, 42571, 35814 ####[facility] MAGNESIUM BLOODon 03-27-2017 Magnesium mass conc 1.9 mg/dL Normal 1.9-2.7 The [facility] Comment on above: Performed By: #### 4 1000, 30414, 20598, 24129, 73519, 50575 ####[facility] PHOSPHORUS BLOODon 7 Phosphate mass conc 3.4 mg/dL Normal 2.5-5.0 The [facility] Comment on above: Performed By: #### 4 1000, 03151, 16620, 44331, 09016, 79481 ####[facility] TACROLIMUSon 03-27-2017 Tacrolimus mass conc (Bld) 3.7 ng/mL Low 5.0-20.0 The [facility] Comment on above: Result Comment: The [employer] SSRS REPORT DEVELOPER Tacrolimus assay is a delayed one-step immunoassayfor the quantitative determination of tacrolimus in human whole bloodusing the chemiluminescent microparticle immunoassay (CMIA) technologywith flexible assay protocols, referred to as Chemiflex. Performed By: #### 4 1000, 10352, 29420, 75109, 63354, 06840 ####[facility] URIC ACID BLOODon 03-27-2017 Urate mass conc 4.1 mg/dL Normal 2.3-6.6 The [facility] Comment on above: Performed By: #### 4 1000, 14303, 16667, 40479, 69293, 21670 ####[facility] BK VIRUS QUANTITATION PCR BL OODon 02-26-2017 BKV QUANT PCR Not detected Normal The [facility] Comment on above: Result Comment: Meth od: BK virus was measured by quantitative polymerase chain reactionusing a TaqMan probe targeting the polyomavirus BK HAND STONECUTTER-1 gene.The lower limit of quantitation of the assay is 500 copies of BK genomeper milliliter of plasma or urine, and any detectable BK DNA below thatlevel is reported as: Detected, <500 copies/ml. Serial BK virusmeasurement can be used to monitor disease activity. (Reference:eKlsie vaughanl. J CLIN MICRO 2004; 42:8886-0476).This test was developed and its performance characteristics determinedby the [facility] Molecular Diagnostics Laboratory. It has not been approvedby the [place] Food and Drug Administration. However, such approval is notrequired for clinical implementation, and test results have been shownto be clinically useful. This laboratory is CAP accredited and CLIAcertified to perform high complexity testing. Performed By: #### 4 1000, 14462, 15107, 17792, 34179, 48656 ####[facility] LOG 10 COPIES Not detected Normal The [facility] Comment on above: Performed By: #### 4 1000, 09809, 59718, 27422, 70491, 86110 ####[facility] CBC W/DIFFon 02-26-2017 Basophils Auto #/vol (Bld) 0.3 % Normal 0.0-2.0 The [facility] Comment on above: Performed By: #### 5 0103 ####[facility] Eosinophils/100 WBC Auto (Bld) 2.2 % Normal 0.0-5.0 The [facility] Comment on above: Performed By: #### 5 0103 ####[facility] Erythrocyte distribution width Auto Ratio (RBC) 13.8 % Normal 11.5-16.9 The [facility] Comment on above: Performed By: #### 5 0103 ####[facility] Hematocrit Auto Volume Fraction (Bld) 44.9 % Normal 36.0-48.0 The [facility] Comment on above: Performed By: #### 5 0103 ####[facility] Hemoglobin mass conc (Bld) 15.0 g/dL Normal 12.0-15.0 The [facility] Comment on above: Performed By: #### 5 0103 ####[facility]3000 [facility].[address] Lymphocytes/100 WBC Auto (Bld) 18.9 % Low 20.0-40.0 The [facility] Comment on above: Performed By: #### 5 0103 ####[facility]3000 [facility].[address] MCH Auto Entitic mass (RBC) 28.9 pg Normal 24.0-32.0 The [facility] Comment on above: Performed By: #### 5 0103 ####[facility] MCHC Auto mass conc (RBC) 33.4 g/dL Normal 32.0-36.0 The [facility] Comment on above: Performed By: #### 5 3 ####[facility] MCV Auto Entitic volume (RBC) 86.6 fL Normal 80.0-100.0 The [facility] Comment on above: Performed By: #### 5 3 ####[facility] METHOD Normal RBC Morphology Normal The [facility] Comment on above: Performed By: #### 5 3 ####[facility] MONOS 11.7 % High 2-8 The [facility] Comment on above: Performed By: #### 5 102 ####[facility] Neutrophils/100 WBC Auto (Bld) 66.9 % Normal 50-70 The [facility] Comment on above: Performed By: #### 5 3 ####[facility] PLAT CNT 230 Thou/mm3 Normal 100-400 The [facility] Comment on above: Performed By: #### 5 3 ####[facility] RBC Auto #/vol (Bld) 5.18 mill/mm3 Normal 3.50-5.50 T he [facility] Comment on above: Performed By: #### 5 3 ####[facility] WBC Auto #/vol (Bld) 5.8 Thou/mm3 Normal 4.0-10.0 Th e [facility] Comment on above: Performed By: #### 5 102 ####[facility] COMP METABOLIC PANELon 02-26 Albumin mass conc 4.7 g/dL Normal 3.5-5.7 The [facility] Comment on above: Performed By: #### 4 1000, 08599, 13263, 61051, 11481, 84238 ####[facility] [place] [address], [facility] ALKALINE PHOSPH 115 IU/L High 34-104 The [facility] Comment on above: Performed By: #### 4 1000, 77980, 38432, 01164, 52874, 91056 ####[facility] [place] [address], [facility] ALT enzyme act/vol 18 U/L Normal 7-52 The [facility] Comment on above: Performed By: #### 4 1000, 31584, 64768, 54183, 59693, 99025 ####[facility] [place] [address], [facility] AST enzyme act/vol 22 U/L Normal 13-39 The [facility] Comment on above: Performed By: #### 4 1000, 96313, 59270, 07879, 85143, 52597 ####[facility] [place] [address], [facility] Bilirubin mass conc 0.6 mg/dL Normal 0.3-1.0 The [facility] Comment on above: Performed By: #### 4 1000, 28434, 56501, 87465, 47835, 91957 ####[facility] [place] [address], [facility] Calcium mass conc 9.8 mg/dL Normal 8.6-10.3 The [facility] Comment on above: Performed By: #### 4 1000, 24733, 34354, 91928, 27983, 37112 ####[facility] [place] [address], [facility] Chloride molar conc 103 mmol/L Normal 98-107 The [facility] Comment on above: Performed By: #### 4 1000, 93004, 03344, 87115, 53114, 87869 ####[facility] [place] [address], [facility] CO2 molar conc 29 mmol/L Normal 21-31 The [facility] Comment on above: Performed By: #### 4 1000, 60796, 44726, 05842, 29790, 83676 ####[facility] [place] [address], [facility] Creatinine mass conc 0.78 mg/dL Normal 0.60-1.20 [facility] Comment on above: Performed By: #### 4 1000, 25099, 40925, 64471, 69640, 85134 ####[facility] [place] [address], [facility] GFR/1.73 sq M predicted among blacks MDRD vol rate/area (S/P/Bld) mL/min/{1.73_m2} Normal >60 The [facility] Comment on above: Performed By: #### 4 1000, 64131, 59312, 92549, 86477, 75117 ####[facility] [place] [address], [facility] GFR/1.73 sq M predicted among non-blacks MDRD vol rate/area (S/P/Bld) mL/min/{1.73_m2} Normal >60 The [facility] Comment on above: Performed By: #### 4 1000, 23072, 28747, 66003, 22345, 12110 ####[facility] [place] [address], [place] Glucose mass conc 94 mg/dL Normal 70-100 [facility] Comment on above: Performed By: #### 4 1000, 86106, 43661, 20185, 77717, 79689 ####[facility] [place] [address], [place] Potassium molar conc 3.8 mmol/L Normal 3.5-5.1 The [facility] Comment on above: Performed By: #### 4 1000, 25806, 33143, 82950, 38600, 13388 ####[facility] [place] [address], [facility] Protein mass conc 7.4 g/dL Normal 6.0-8.3 The [facility] Comment on above: Performed By: #### 4 1000, 94017, 75911, 36123, 54713, 08963 ####[facility] Sodium molar conc 136 mmol/L Normal 136-145 The [facility] Comment on above: Performed By: #### 4 1000, 91489, 31921, 40070, 53355, 86444 ####[facility] Urea nitrogen mass conc 19 mg/dL Normal 7-25 The [facility] Comment on above: Performed By: #### 4 1000, 52105, 70100, 40674, 95742, 27251 ####[facility] DIRECT BILIon 02-26-2017 Bilirubin.direct mass conc 0.1 mg/dL Normal 0.0-0.2 The [facility] Comment on above: Performed By: #### 4 1000, 46603, 20767, 59676, 61162, 46566 ####[facility] EVEROLIMUS 86975ht 7 EVEROLIMUS 5.9 ng/mL Normal The [facility] Comment on above: Result Comment: [...] the transplantcenter.Test developed and characteristics determined by [employer]. See Compliance Statement B: [facility]/CSPerformed by [employer],[address] [place] [id number] rdv.[facility], Leonid Antonio MD - Lab. Director HEMOGLOBIN A1Con 02-26-2017 Glucose mass conc 108 mg/dL Normal 70-126 [facility] Comment on above: Performed By: #### 4 3234, 20161 ####[facility] Hemoglobin A1c/Hemoglobin.total mass fraction (Bld) 5.4 % Normal 4.0-6.0 The [facility] Comment on above: Performed By: #### 4 4113, 58389 ####[facility] LIPID PROFILEon 02-26-2017 Cholesterol in HDL mass conc 54 mg/dL Normal 23-92 The [facility] Comment on above: Result Comment: Slig ht variation in normal range could be due to gender and/or age.HDL CHOLESTEROL REFERENCE RANGE:20 years and older Cardiovascular Risk> or =60 mg/dL Jfyeuxmug27 TO 59 mg/dL Low Risk<40 mg/dL High Risk Performed By: #### 4 1000, 66566, 74509, 00719, 53712, 77491 ####[facility] [place] [address], [facility] Cholesterol in LDL mass conc 70 mg/dL Normal 0-130 The [facility] Comment on above: Result Comment: LDL IS A CALCULATIONLDL IS ONLY VALID IF THE TRIG IS LESS THAN 400. Performed By: #### 4 1000, 96022, 79216, 57993, 30039, 27071 ####[facility] [place] [address], [facility] Cholesterol mass conc 144 mg/dL Normal 120-200 The [facility] Comment on above: Result Comment: CHOL ESTEROL REFERENCE RANGE:20 YEARS AND OLDER CARDIOVASCULAR RISKLess than 200 mg/dl Low Oyoz499 to 239 mg/dl Borderline Uqdl278 mg/dl and greater High Risk Performed By: #### 4 1000, 01417, 46597, 20921, 73967, 27958 ####[facility] [place] [address], [facility] Cholesterol.total/Cho lesterol in HDL mass ratio 2.7 {ratio} Normal .0-4.5 [facility] Comment on above: Performed By: #### 4 1000, 41818, 88037, 09349, 51672, 72716 ####[facility] [place] [address], [facility] NON-HDL CHOLESTEROL 90 mg/dL Normal The [facility] Comment on above: Performed By: #### 4 1000, 51783, 20461, 89577, 92556, 01896 ####[facility] [place] [address], [facility] Triglyceride mass conc 101 mg/dL Normal 40-149 The [facility] Comment on above: Result Comment: TRIG LYCERIDE REFERENCE RANGE:20 YEARS AND OLDER CARDIOVASCULAR RISKLESS THAN 150 mg/dl LOW [id number] TO 199 mg/dl BORDERLINE EDND536 mg/dl AND GREATER HIGH RISK Performed By: #### 4 1000, 50927, 88768, 60588, 39094, 00819 ####[facility] VLDL CHOL 20 mg/dL Normal 0-40 The [facility] Comment on above: Performed By: #### 4 1000, 94950, 65180, 88634, 65589, 47269 ####[facility] MAGNESIUM BLOODon 02-26-2017 Magnesium mass conc 1.9 mg/dL Normal 1.9-2.7 The [facility] Comment on above: Performed By: #### 4 1000, 70235, 74462, 16856, 66672, 85959 ####[facility] PHOSPHORUS BLOODon 7 Phosphate mass conc 4.1 mg/dL Normal 2.5-5.[address] [facility] Comment on above: Performed By: #### 4 1000, 05207, 98136, 46479, 79446, 40939 ####[facility] TACROLIMUSon 02-26-2017 Tacrolimus mass conc (Bld) 4.2 ng/mL Low 5.0-20.0 The [facility] Comment on above: Result Comment: The [employer] Tacrolimus assay is a delayed one-step immunoassayfor the quantitative determination of tacrolimus in human whole bloodusing the chemiluminescent microparticle immunoassay (CMIA) technologywith flexible assay protocols, referred to as Chemiflex. Performed By: #### 4 6447, 21101 ####[facility] [facility] [place] [address], [facility] URIC ACID BLOODon 02-26-2017 Urate mass conc 4.3 mg/dL Normal 2.3-6.6 The [facility] Comment on above: Performed By: #### 4 1000, 07760, 46393, 62956, 72815, 37132 ####[facility] [place] [address] Vital Signs Date Time Vital Sign Value Performing Clinician Facility 08-30-2023 09:220400 Body height 182.88 cm [facility] 08-30-2023 09:22-0400 Body mass index (BMI) [Ratio] 17.9 kg/m2 [facility] 08-30-2023 09:22-0400 Body temperature 99.8 [degF] [facility] 08-30-2023 09:22-0400 Body weight 59.87 kg [facility] 08-30-2023 09:22-0400 Diastolic blood pressure 73 mm[Hg] [facility] 08-30-2023 09:220400 Heart rate 67 /min [facility] 08-30-2023 09:22-0400 SaO2% (BldA) [Mass fraction] 95 % [facility] 08-30-2023 09:22-0400 Systolic blood pressure 111 mm[Hg] [facility] 03-27-2023 11:30-0500 Body height 152.4 cm Cathy Bella Other [facility] Other 03-27-2023 11:30-0500 Body mass index (BMI) [Ratio] 25.39 kg/m2 Cathy Bella Other [employer] [facility] Other 03-27-2023 11:30-0500 Body temperature 97.5 [degF] Cathy Bella Other [facility] Other 03-27-2023 11:30-0500 Body weight 58.97 kg Cathy Bella Other [facility] Other 03-27-2023 11:30-0500 Respiratory rate 18 /min Cathy Bella Other [facility] Other 03-27-2023 11:30-0500 SaO2% (BldA) [Mass fraction] 96 % Cathy Bella Other [facility] Other 09-21-2022 09:00-0400 Body height 152.4 cm Martha Paola Other [facility] Other 09-21-2022 09:00-0400 Body mass index (BMI) [Ratio] 22.46 kg/m2 Martha Paola Other [facility] Other 09-21-2022 09:00-0400 Body temperature 97.6 [degF] Martha Paola Other [facility] Other 09-21-2022 09:00-0400 Body weight 52.16 kg Martha Paola Other [facility] Other 09-21-2022 09:00-0400 Diastolic blood pressure 70 mm[Hg] Martha Paola Other [facility] Other 09-21-2022 09:00-0400 Respiratory rate 18 /min Martha Paola Other [facility] Other 09-21-2022 09:00-0400 SaO2% (BldA) [Mass fraction] 96 % Martha Paola Other [facility] Other 09-21-2022 09:00-0400 Systolic blood pressure 107 mm[Hg] Martha Paola Other [facility] Other 01-12-2022 13:55-0400 Body height 152.4 cm Cathy Bella Other [facility] Other 01-12-2022 13:55-0400 Body mass index (BMI) [Ratio] 19.53 kg/m2 Cathy Bella Other [facility] Other 01-12-2022 13:55-0400 Body temperature 96.9 [degF] Cathy Bella Other [facility] Other 01-12-2022 13:55-0400 Body weight 45.36 kg Cathy Bella Other [facility] Other 01-12-2022 13:55-0400 Respiratory rate 18 /min Cathy Bella Other [facility] Other 01-12-2022 13:55-0400 SaO2% (BldA) [Mass fraction] 97 % Cathy Bella Other [facility] Other 12-28-2021 10:20-0400 Body height 152.4 cm Martha Guevara Other [facility] Other 12-28-2021 10:20-0400 Body mass index (BMI) [Ratio] 21.48 kg/m2 Martha Paola Other [facility] Other 12-28-2021 10:20-0400 Body temperature 98 [degF] Martha Paola Other [facility] Other 12-28-2021 10:20-0400 Body weight 49.9 kg Martha Paola Other [facility] Other 12-28-2021 10:20-0400 Respiratory rate 18 /min Martha Smithmond Other [facility] Other 12-28-2021 10:20-0400 SaO2% (BldA) [Mass fraction] 97 % Martha Guevara Other [facility] Other 12-25-2021 10:05-0400 Body height 152.4 cm Cathy Shayne Other [facility] Other 12-25-2021 10:05-0400 Body mass index (BMI) [Ratio] 21.48 kg/m2 Cathy Bella Other [facility] Other 12-25-2021 10:05-0400 Body temperature 96 [degF] Cathy Bella Other [facility] Other 12-25-2021 10:05-0400 Body weight 49.9 kg Cathy Bella Other [facility] Other 12-25-2021 10:05-0400 Respiratory rate 18 /min Cathy Bella Other [facility] Other 12-25-2021 10:05-0400 SaO2% (BldA) [Mass fraction] 97 % Cathy Bella Other [facility] Other 10-27-2021 12:35-0400 Body height 152.4 cm Cathy Bella Other [facility] Other 10-27-2021 12:35-0400 Body mass index (BMI) [Ratio] 22.85 kg/m2 Cathy Bella Other [facility] Other 10-27-2021 12:35-0400 Body weight 53.07 kg Cathy Bella Other [facility] Other 07-30-2022 12:35-0400 Diastolic blood pressure 87 mm[Hg] Cathy Bella Other [facility] Other 10-27-2021 12:35-0400 SaO2% (BldA) [Mass fraction] 98 % Cathy Bella Other [facility] Other 10-27-2021 12:35-0400 Systolic blood pressure 130 mm[Hg] Cathy Bella Other [facility] Other 08-14-2021 10:40-0400 Body height 152.4 cm Martha Guevara Other [facility] Other 08-14-2021 10:40-0400 Body mass index (BMI) [Ratio] 22.46 kg/m2 Martha Smithmond Other [facility] Other 08-14-2021 10:40-0400 Body temperature 96.7 [degF] Martha Smithmond Other [facility] Other 08-14-2021 10:40-0400 Body weight 52.16 kg Martha Smithmond Other [facility] Other 08-14-2021 10:40-0400 Diastolic blood pressure 68 mm[Hg] Martha Paola Other [facility] Other 08-14-2021 10:40-0400 Respiratory rate 20 /min Martha Paola Other [facility] Other 08-14-2021 10:40-0400 SaO2% (BldA) [Mass fraction] 98 % Martha Paola Other [facility] Other 08-14-2021 10:40-0400 Systolic blood pressure 144 mm[Hg] Martha Guevara Other [facility] Other Encounters Encounter Date Encounter Type Care Provider Facility Start: 01-14-2024 End: 01-14-2024 [facility] Result Encounter Generic External Data Provider [facility] External Department Unsolicited Start: 01-14-2024 End: 01-14-2024 [facility] Result Encounter Generic External Data Provider [facility] External Department Unsolicited Start: 09-23-2023 End: 09-23-2023 ambulatory [facility] Start: 09-02-2023 End: 09-02-2023 ambulatory ESTER PADILLA Not Available Start: 08-30-2023 End: 08-30-2023 ambulatory [facility] Work Phone: Start: 08-30-2023 End: 08-30-2023 Patient encounter procedure [facility] Work Phone: Start: 04-02-2023 End: 04-02-2023 ambulatory RAMON CARROLL Not Available Start: 03-27-2023 End: 03-27-2023 ambulatory Cathy Bella Other [facility] Other Start: 03-27-2023 Office outpatient visit 25 minutes Cathy Bella [facility] Start: 03-17-2023 End: 03-17-2023 ambulatory [facility] Start: 03-06-2023 End: 03-06-2023 ambulatory ESTER Townsend HEMDAWN Not Available Start: 02-12-2023 End: 02-12-2023 ambulatory ESTER M HEMMER Not Available Start: 09-21-2022 End: 09-21-2022 ambulatory Martha Guevara Other [facility] Other Start: 09-21-2022 Office outpatient visit 15 [...] 01-12-2022 End: 01-12-2022 ambulatory Cathy Bella Other [facility] Other Start: 01-12-2022 Office outpatient visit 15 minutes Cathy Bella [facility] Start: 01-07-2022 End: 01-07-2022 ambulatory ISATU GUAMAN . Facility:[facility] Start: 01-03-2022 End: 01-04-[address] VIRGIL SWIFT Facility:[facility] Start: 12-28-2021 End: 12-28-2021 ambulatory Martha Guevara Other [facility] Other Start: 12-28-2021 Office outpatient visit 15 minutes Marthajd Guevara [facility] Start: 12-25-2021 End: 12-25-2021 ambulatory Cathy Bella Other [facility] Other Start: 12-25-2021 Office outpatient visit 25 minutes Cathy Shayne [facility] Start: 12-05-2021 End: 12-06-[address] DOCTOR SHAWC Facility:[facility] Start: 11-07-2021 End: 11-08-[address] DOCTOR MISC Facility:[facility] Start: 10-27-2021 End: 10-27-2021 ambulatory Cathy Bella Other [facility] Other Start: 10-27-2021 Office outpatient visit 15 minutes Cathy Bella [facility] Start: 10-15-2021 End: 10-16-[address] DOCTOR MISC Facility:[facility] Start: 10-08-2021 End: 10-09-[address] DOCTOR MISC Facility:[facility] Start: 09-10-2021 End: 09-11-[address] DOCTOR MISC Facility:[facility] Start: 08-14-2021 End: 08-14-2021 ambulatory Martha Paola Other [facility] Other Start: 08-14-2021 Office outpatient visit 15 minutes Martha Guevara [facility] Start: 12-31-2017 End: 01-01-2018 Patient encounter VIRGIL HAYNES Facility:[facility] Start: 12-25-2017 End: 12-26-2017 Patient encounter ROSALINDA ROSENBAUM [facility] for malign ant neoplasm of colon FIT-DNA [facility] Start: 04-02-2024 Medicare Annual Well ness (AWV) Medicare Annual Wellness (AWV) [facility] Start: 11-30-2023 Influenza vaccination Influenza Vacc ine (#1) [facility] Start: 07-24-2023 Screening for malign ant neoplasm of breast Mammogram [facility] Start: 1961 Pneumococcal Vaccine : 65+ Years (1 of 2 - PCV) Pneumococcal Vaccine: 65+ Years (1 of 2 - PCV) [facility] Start: 1956 Screening for malign ant neoplasm of colon [facility] Immunizations Immunization Date Immunization Notes Care Provider Heri [facility] 01-10-2023 Influenza, Seasonal, Quadrivalent, Adjuvanted Generic Provider [facility] 01-10-2023 influenza virus vaccine, unspecified formulation Generic Provider [facility] 09-16-2022 zoster vaccine recombinant Generic Provider [facility] 07-22-2022 zoster vaccine recombinant Generic Provider [facility] 02-19-2022 Influenza, injectabl e, [place] Canine Kidney, preservative free, quadrivalent Generic [...] (incl. purified surface antigen) Martha Guevara Other [facility] Other 03-16-2009 influenza virus vaccine, unspecified formulation [facility] Payers Date Payer Category Payer Medicare (Managed Care) [facility]Y [facility] [id number] 1958 [facility] [id number] 2..[id number] 1959 Self-pay 1959 Unknown [id number] 1956 Unknown [id number] 2..840.1.832491.3.579. 2. 1956 Unknown [id number] 2..840.1.439520.3.579. 2. 1956 Unknown [id number] 2.16.840.1.405996.3.579. 2.647 1956 Unknown [id number] 2..840.1.129887.3.579. 2.647 1956 Unknown [id number] 2.16.840.1.780209.3.579. 2.647 1956 Unknown [id number] 2.16.840.1.338959.3.579. 2.647 1956 Unknown [id number] 2.16.840.1.400653.3.579. 2.647 1956 Unknown [id number] 2.16.840.1.872601.3.579. 2.647 1956 Unknown [id number] 2.16.840.1.970551.3.579. 2.647 1956 Unknown [id number] 2.16.840.1.225637.3.579. 2.647 1956 Unknown [id number] 2.16.840.1.951402.3.579. 2.647 1956 Unknown [id number] 2.16.840.1.258160.3.579. 2.647 1956 Unknown [id number] 2.16.840.1.942777.3.579. 2.59 1956 Unknown [id number] 2.16.840.1.243910.3.579. 2.593 1956 Unknown [id number] 2.16.840.1.268023.3.579. 2.59 1956 Unknown [id number] 2.16.840.1.549177.3.579. 2.593 1956 Unknown [id number] 2.16.840.1.281739.3.579. 2.59 1956 Unknown [id number] 2.16.840.1.995811.3.579. 2.593 1956 Unknown [id number] 2.16.840.1.668469.3.579. 2.59 1956 Unknown [id number] 2.16.840.1.870390.3.579. 2.593 1956 Unknown [id number] 2.16.840.1.606584.3.579. 2.593 1956 Unknown [id number] 2.16.840.1.360412.3.579. 2.593 1956 Unknown [id number] 2.16.840.1.855061.3.579. 2.593 1956 Unknown [id number] 2.16.840.1.495181.3.579. 2.593 1956 Unknown [id number] 2.16.840.1.138003.3.579. 2.593 1956 Unknown [id number] 2.16.840.1.835793.3.579. 2.593 1956 Unknown [id number] 2.16.840.1.734351.3.579. 2.593 1956 Unknown [id number] 2.16.840.1.798010.3.579. 2.1259 1956 Unknown [id number] 2.16.840.1.925465.3.579. 2.1259 1956 Unknown [id number] 2.16.840.1.134239.3.579. 2.1259 1956 Unknown [id number] 2.16.840.1.898857.3.579. 2.1259 Unknown [id number] 2.16.840.1.431436.3.579. 2.593 Unknown Amy MCGREGOR/DAYSI [id number] Social History Date Type Detail Facility Unknown if ever smoked [facility] Other Start: 04-02-2023 End: 09-02-2023 Sex Assigned At Appriss Other Start: 01-29-2023 End: 08-30-2023 Tobacco smoking status NHIS Never smoked tobacco (finding) [facility] Start: 1955 Sex Assigned At Female F [facility] Start: 01-29-2023 Tobacco use and exposure Smokeless tobacco non-user [facility] Start: 09-02-2023 Alcoholic beverage intake Lifetime non-drinker (finding) [facility] Start: 04-02-2023 End: 09-02-2023 History of Social function [facility] Start: 1955 Sex assigned at Not on file [facility] Clinical Notes 11-10-2007 to 12-18-2023 Note Date & Type Note Facility 12-18-2023 Note Will review by phone today with Dr. Negro Vivas tac level 3.9 for 2 consecutive months and if any dose changes, will notify this pt and amend this note. Most recent IR tacrolimus dosing on record is 0.5mg BID [facility] 12-09-2023 Note Prior auth for Mycop henolate was submitted via cmm Approved- scanned into media Keycode: [id number] [facility] 11-26-2023 Note Prior auth submitted via CMM PA Case: [id number], Status: Approved, Coverage Starts on: 08/27/2023 12:00:00 AM, Coverage Ends on: 11/25/2024 12:00:00 AM Keycode: [id number] [facility] 09-23-2023 Note 09/23/23 Chief Complaint Patient presents with Kidney Follow-up Pt has been having sores in her mouth for the past month. PCP: Ramon Carroll MD Txp Referring: Preferred Pharmacy: [facility] - [place], [place] - [address] [facility] [address] [id number] [place], [place] - [address] [facility] [address] [facility] [id number] [facility] - [place], [place] - [address] [facility] [address] Subjective Visit Vitals BP 139/74 (BP Location: Left arm, Patient Position: Sitting, BP Cuff Size: Adult) Pulse 59 Temp 36.3 ???C (97.3 ???F) (Oral) Resp 18 Ht 1.524 m (5') Wt 58.5 kg (129 lb) SpO2 99% BMI 25.19 kg/m??? OB Status Postmenopausal Smoking Status Never BSA 1.57 m??? No Known Allergies Medication Documentation Review Audit Reviewed by Ester Welsh MA (Radio Engineering Teacher) on 09/23/23 at 0859 Medication Order Taking? Sig Documenting Provider Last Dose Status amLODIPine (Norvasc) 5 mg tablet [id number] Yes TAKE 1 TABLET BY MOUTH EVERY DAY Virgil Haynes NP Taking Active amoxicillin (Amoxil) 500 mg capsule [id number] No 1 capsule every 8 (eight) hours. Yasmin Mancia MD Not Taking Active atorvastatin (Lipitor) 20 mg tablet [id number] Yes TAKE 1 TABLET BY MOUTH EVERY DAY AT BEDTIME Virgil Haynes NP Taking Active baclofen (Lioresal) 10 mg tablet [id number] No Yasmin Mancia MD Not Taking Active cyanocobalamin (Vitamin B-12) 500 mcg tablet [id number] Yes in the morning. Historical MD Blanche Taking Active magnesium oxide (Mag-Ox) 400 mg (241.3 mg magnesium) tablet [id number] Yes Take 400 mg by mouth in the morning. Yasmin Mancia MD Taking Active mycophenolate (Myfortic) 180 mg EC tablet [id number] Yes TAKE 4 TABLETS BY MOUTH IN THE MORNING AND AT BEDTIME Patient taking differently: Take 540 mg by mouth in the morning and at bedtime. Doe Bridges MD Taking Active omega-3 fatty acids-fish oil (Fish OiL Extra Strength) 435-880 mg capsule [id number] Yes 1 capsule 1 (one) time each day at the same time. Historical MD Blanche Taking Active PARoxetine (Paxil) 10 mg tablet [id number] Yes Take 10 mg by mouth in the morning. Historical MD Blanche Taking Active potassium gluconate 595 mg (99 mg) tablet [id number] Yes every 12 (twelve) hours. Historical ProviderMD Taking Active spironolactone (Aldactone) 25 mg tablet [id number] Yes TAKE 1 TABLET BY MOUTH EVERY DAY Virgil Haynes NP Taking Active tacrolimus (Prograf) 0.5 mg capsule [id number] Yes TAKE ONE CAPSULE BY MOUTH EVERY [...] Continue meds and MONTHLY Labs with New [facility] standing Order given today. Follow up 6 months or sooner if needed. See Derm See PCP as scheduled: Dr Carroll. Magic Mouthwash script provided. Chart Review today: 03.17.23 Pt presents visit with . Pt states labs done Last week in [facility] and [place] calling for results. Pt seeing Derm in [place] for lesion: forearm and other lesions. Hx: melanoma PCP: shelley Khoury (more content not included)... [facility] 03-27-2023 Evaluation note Encounter Date Diagnosis Assessment Notes Feb, Contact with and (suspected) exposure to covid-19 (ICD-10 - Z20.822) Feb, Viral URI (ICD-10 - J06.9) Advised patient that COVID/Influenza A/B/RSV test and rapid Strep test was negative today. Advised patient that will treat as viral URI. Supportive care as directed, increase fluids and rest, Tylenol as directed, [facility] [place], cool mist humidifier, throat lozenges. Discussed infection [...] condition. Feb, Sore throat (ICD-10 - J02.9) [facility] Other 12-18-2023 Note03/17/23 Chief Complaint Patient presents with Kidney Follow-up Patient would like to know if Virgil would prescribe depression medication. PCP: Ramon Carroll MD Txp Referring: Preferred Pharmacy: [facility] - [place], [place] - [address] [facility] [address] [id number] - [place], [place] - [address] [phone] [facility] - [place], [place] - [address] [facility] [address] Subjective Visit Vitals BP 142/80 (BP Location: Right arm, Patient Position: Sitting) Pulse 63 Temp 36.3 ???C (97.4 ???F) (Oral) Ht 1.524 m (5') Wt 60.6 kg (133 lb 9.6 oz) BMI 26.09 kg/m??? Smoking Status Never BSA 1.6 m??? No Known Allergies Medication Documentation Review Audit Reviewed by Flakita Lagos MA (Radio Engineering Teacher) on 03/17/23 at 0956 Medication Order Taking? Sig Documenting Provider Last Dose Status amLODIPine (Norvasc) 5 mg tablet [id number] Yes TAKE 1 TABLET BY MOUTH EVERY DAY Virgil Haynes NP Taking Active amoxicillin (Amoxil) 500 mg capsule [id number] No 1 capsule every 8 (eight) hours. Yasmin Mancia MD Not Taking Active atorvastatin (Lipitor) 20 mg tablet [id number] Yes TAKE 1 TABLET BY MOUTH EVERY DAY AT BEDTIME Virgil Haynes NP Taking Active baclofen (Lioresal) 10 mg tablet [id number] Yes Historical MD Blanche Taking Active cyanocobalamin (Vitamin B-12) 500 mcg tablet [id number] No in the morning. Yasmin Mancia MD Not Taking Active magnesium oxide (Mag-Ox) 400 mg (241.3 mg magnesium) tablet [id number] Yes Take 400 mg by mouth in the morning. Yasmin Mancia MD Taking Active mycophenolate (Myfortic) 180 mg EC tablet [id number] Yes TAKE 4 TABLETS BY MOUTH IN THE MORNING AND AT BEDTIME Doe Bridges MD Taking Active omega-3 fatty acids-fish oil (Fish OiL Extra Strength) 435-880 mg capsule [id number] No 1 capsule 1 (one) time each day at the same time. Yasmin Mancia MD Not Taking Active PARoxetine (Paxil) 10 mg tablet [id number] Yes Take 10 mg by mouth in the morning. Yasmin Mancia MD Taking Active potassium gluconate 595 mg (99 mg) tablet [id number] No every 12 (twelve) hours. Yasmin Mancia MD Not Taking Active spironolactone (Aldactone) 25 mg tablet [id number] Yes TAKE 1 TABLET BY MOUTH EVERY DAY Virgil Haynes NP Taking Active tacrolimus (Prograf) 0.5 mg capsule [id number] Yes TAKE ONE CAPSULE BY MOUTH EVERY [...] Pt states labs done Last week in [facility] and [place] calling for results. Pt seeing Derm in [place] for lesion: forearm and other lesions. Hx: [...] ; Creat 0.9 ; (more content not included)...[facility]10-18-2023 Note Reviewed Ext Tac 3.6 over the phone with Dr. Vivas, per phone order no changes at this time.[facility]10-15-2022 Evaluation note* Encounter Date Diagnosis [...] understanding and is agreeable with treatment plan [facility] Other 09-30-2022 Evaluation note* Encounter Date Diagnosis [...] no improvement in 2 to 3 days. [facility] Other 09-27-2022 Evaluation note* Encounter Date Diagnosis [...] treatment plan. 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 she had a son Medical History hypertension Medical History kidney transplant Surgical History resection of superior cervical mass 11/10/07 Surgical History Teeth extraction in preparation for renal transplant Surgical History portacath placement Surgical History kidney transplant 2014 Hospitalization History see above [facility] Other Evaluation noteNort [facility] Other Evaluation note* Diagnosis Onset Date Resolution Status Thrush, oral acute Sore throat noneactive [facility] Work Phone: History general Narrative - ReportedNoDrinkSendo Other Summary Purpose Family History Relationship Condition [...] and content) DATE CREATED AUTHOR 01/30/2018 [facility] DATE CREATED AUTHOR AUTHOR'S ORGANIZ ATION 08/17/2021 [facility] DATE CREATED AUTHOR AUTHOR'S ORGANIZ ATION 08/13/2022 [facility] DATE CREATED AUTHOR AUTHOR'S ORGANIZ ATION 09/03/2023 [facility] DATE CREATED AUTHOR AUTHOR'S ORGANIZ ATION 12/20/2023 [facility] REASON FOR VISIT (unrecogniz ed section and content) DYSURIADYSURIADYSURIAPOSS RA SH ON BACK, ITCHINGDODGE JOURNEY, SORE THROAT, COUGHBLACK DODGE JOURNT SORE THROATIN CAR, MOUTH SORES, CALL [phone] THROAT, COUGHING, DRAINAGE Care Teams (unrecognized sec tion and content) Team Status: Active Member Role Status Dates Shelly May Primary Care Provider Active Team Status: Inactive Member Role Status Dates Shelly May Primary Care Provider Active Start: August 30, 2023 End: August 30, 2023 Lindsay Soria APRN Attending Provider Active Start: August 30, 2023 End: August 30, 2023 Reamer Hand Relationship Specialty Start Date End Date Ramon Carroll MD [address] [facility] [address] [place] [address] PCP - Amy FERREIRA 04/08/21 Ramon Carroll MD [address] [facility] [address] [place] [address] PCP - General Internal Medicine 08/06/22 Goals [...] BE BASED ON THE PRIMARY CLINICAL RECORDS. [employer] provides no warranty or guarantee of the accuracy or completeness of information in this document.
[2024-02-13 06:59] LABS: Basophils Percent Auto 0.3 % (0.2-2.0); Eosinophils Absolute Auto 0.1 10^3/uL (0.0-0.7); Eosinophils Percent Auto 2.1 % (0.9-7.0); Hematocrit 43.3 % (36.0-48.0); Hemoglobin 14.2 g/dL (12.0-16.0); Immature Granulocytes Abs Auto 0.03 10^3/uL (0.00-0.03); Immature Granulocytes Pct Auto 0.4 % (0.0-0.5); Lymphocytes Absolute Auto 1.4 10^3/uL (1.2-3.8); Lymphocytes Percent Auto 20.7 % (20.5-60.0); Mean Corpuscular HGB Conc 32.8 g/dL (29.9-35.2); Mean Corpuscular Hemoglobin 30.9 pg (26.7-34.0); Mean Corpuscular Volume 94.1 fL (81.0-99.0); Mean Platelet Volume 11.3 fL (9.5-13.5); Monocytes Absolute Auto 0.7 10^3/uL (0.3-0.8); Monocytes Percent Auto 10.8 % (1.7-12.0); Neutrophils Absolute Auto 4.4 10^3/uL (1.4-6.5); Neutrophils Percent Auto 65.7 % (43.0-75.0); Platelet Count 193 10^3/uL (150-450); Red Cell Distribution Width 14.7 % (11.0-15.0); White Blood Count 6.7 10^3/uL (4.0-11.0)
[2024-02-13 07:25] LABS: Alanine Aminotransferase 16 U/L (14-59); Albumin Globulin Ratio 1.2; Albumin Level 3.6 g/dL (3.4-5.0); Alkaline Phosphatase 131 U/L (46-116); Aspartate Amino Transferase 13 U/L (15-37); BUN Creatinine Ratio 16.5; Bilirubin Direct 0.1 mg/dL (0.0-0.2); Bilirubin Total 0.6 mg/dL (0.2-1.0); Calcium 9.1 mg/dL (8.5-10.1); Carbon Dioxide 26.1 mmol/L (21.0-32.0); Chloride 108 mmol/L (98-107); Estimated GFR (African America >60 (>=60 mL/min/1.73m^2); Estimated GFR (Non-African Ame 57 (>=60 mL/min/1.73m^2); Globulin 2.9 g/dL; Glucose 95 mg/dL (74-106); Magnesium 1.7 mg/dL (1.8-2.4); Phosphorus 3.4 mg/dL (2.6-4.7); Potassium 4.1 mmol/L (3.5-5.1); Sodium 144 mmol/L (136-145); Total Protein 6.5 g/dL (6.4-8.2); Uric Acid 4.7 mg/dL (2.6-6.0)
[2024-02-17 08:15] LABS: Tacrolimus (FK506), Blood 4.5 ng/mL (2.0-20.0)
== END 2024-02-13 06:41 | disposition home or self-care (01) ==
LOC: LAB 06:42
PROVIDERS: PCP Internal Medicine
DX: Z94.0 Kidney transplant status (principal); E13.9 Other specified diabetes mellitus without complications
CPT/HCPCS: 36415; 80053; 80197; 82248; 83735; 84100; 84550; 85025

== ENCOUNTER 2024-03-19 06:37 | Outpatient (OUT) | payer MEDICARE, SELFPAY ==
--- OUTSIDE RECORDS SUMMARY | 2024-03-19 06:44 | XMS_ITS | CCD ---
Author Organization [facility] Care Team Providers Care Medical Insurance Biller Name Role Phone POKAGON, DINKAR Unavailable Unavailable POKAGON, DINKAR Unavailable Unavailable CARROLL, ARMON Unavailable Unavailable CARROLL, RAMON Unavailable Unavailable RATNAM, [...] Attending Unavailable MISC, DR OBRIEN Admitting Unavailable POKAGON, DR CONNORS Consulting Unavailable CARROLL, DR DARBY Primary Care Unavailable MISC, DR OBRIEN Attending Unavailable MISC, DR OBRIEN Admitting Unavailable MISC, DR OBRIEN Attending Unavailable MISC, DR OBRIEN Admitting Unavailable MISC, DR OBRIEN Consulting Unavailable CARROLL, DR DARBY Primary Care Unavailable POKAGON, DR CONNORS Consulting Unavailable POKAGON, DR CONNORS Attending Unavailable CARROLL, DR DARBY Primary Care Unavailable POKAGON, DR CONNORS Admitting Unavailable POKAGON, DR CONNORS Attending Unavailable CARROLL, DR DARBY Primary Care Unavailable POKAGON, DR CONNORS Admitting Unavailable POKAGON, DR CONNORS Consulting Unavailable MISC, DR OBRIEN [...] Unavailable CARROLL, DR DARBY Primary Care Unavailable POKAGON, DR CONNORS Consulting Unavailable POKAGON, DR CONNORS Attending Unavailable CARROLL, DR DARBY Primary Care Unavailable POKAGON, DR CONNORS Admitting Unavailable MISC, DOCTOR Attending Unavailable MISC, DR OBRIEN Admitting Unavailable MISC, DR OBRIEN Consulting Unavailable CARROLL, DR DARBY Primary Care Unavailable MISC, DOCTOR Attending Unavailable MISC, DR OBRIEN Admitting Unavailable MISC, DR OBRIEN Consulting Unavailable CARROLL, DR DARBY Primary Care Unavailable POKAGON, DR CONNORS Consulting Unavailable POKAGON, DR CONNORS Attending Unavailable POKAGON, DR CONNORS Admitting Unavailable DR RAMON CARROLL Primary Care Unavailable RAMON CARROLL Attending Unavailable ESTER PADILLA Attending Unavailable ESTER PADILLA Attending Unavailable ESTER PADILLA Attending Unavailable VIRGIL HAYNES Attending Unavailable VIRGIL HAYNES Attending Unavailable Ramon Carroll MD Unavailable [phone] Ramon Carroll MD Primary Care Provider Medications Current Medications Medication Drug Class(es) Dates Sig (Normalized) Sig (Original) [id number] 200 actuat albuterol 0.09 mg/actuat metered dose inhaler (1 source) beta2-Adrenergic Agonist Start: 12-28-2021 take 2 puff(s) by inhalation four times daily as needed Albuterol Sulfate HFA 108 (90 Base) MCG/ACT 2 puffs Inhalation 4 times a day prn 30 Nov, 2021 Active amLODIPine 5 mg oral tablet (13 sources) Dihydropyridine Calcium Channel Eleonora Start: 11-26-2022 take 1 tablet by mouth in the morning amLODIPine (Norvasc) 5 MG tablet Take 5 mg by mouth in the morning. 11/26/2022 Active amLODIPine Besyl ate Active atorvastatin 20 mg oral tablet (4 sources) HMG-CoA Reductase Inhibitor Start: 08-30-2023 take 20 mg by mouth once daily at bedtime Atorvastatin Active 20 MG PO Daily at bedtime August 30, 2023 12:00am baclofen 10 mg oral tablet (3 sources) gamma-Aminobutyr ic Acid-ergic Agonist Start: 03-06-2023 take [...] 1.5 mg/ml oral solution (1 source) Uncompetitive M-mxojmx-G-asparta te Receptor Antagonist, Sigma-1 Agonist Start: 03-27-2023 take 10 mL by mouth every eight hours Plain DM 7.5-7.5 MG/5ML 10 mL Orally every 8 hours for 5 days Feb, Active ergocalciferol 1.25 mg oral capsule (9 sources) Provitamin D2 Compound Start: 06-27-2011 take 1 capsule by mouth every week Vitamin D (Ergocalciferol) 02729 UNIT 1 capsule Orally Once a Week for 90 days May, Active Start: 06-27-2011 everolimus (6 sources) Kinase Inhibitor, mTOR Inhibitor Immunosuppressant Zortress Active ferrous fumarate 325 mg oral tablet (4 sources) Start: Ferrous Fumarate 325 (106 Fe) [...] day for 30 day(s) Active Fish Oils (12 sources) omega-3 (fish oi l) 435 MG [...] 12:00am magnesium oxide 400 mg oral capsule (12 sources) magnesium oxide 400 MG capsule Take [...] acid 180 mg delayed release oral tablet (3 sources) Antimetabolite Immunosuppressant Start: 01-27-2023 take 3 tablets by mouth in the morning mycophenolate (Myfortic) 180 MG EC tablet Take 3 tablets by mouth in the morning and 3 tablets before bedtime. 01/27/2023 Active nystatin 441292 unt/ml oral suspension (4 sources) Polyene Antifungal Start: 09-02-2023 take 5 mL by mouth four times daily nystatin (Mycostatin) [id number] UNIT/ML suspension Indications: Thrush, oral SWISH AND SWALLOW 5 MLS ORALLY 4 TIMES A DAY FOR 10 DAYS 60 mL 1 09/02/2023 Active Start: 08-30-2023 take 1 mL by mouth f our times daily Nystatin Active 5 ML PO Four times daily 200 10 August 30, 2023 12:00am swish and swallow [place] 8-Puo-Wjh-Fish Oil (Fish Oil) 1,000 mg (120 mg-180 mg) capsule (1 source) Start: 08-30-2023 take 1 capsule by mouth once daily [place] 2-Ovz-Yez-Fish Oil (Fish Oil) 1,000 mg (120 mg-180 mg) capsule Active 1 CAP PO Daily August 30, 2023 12:00am PARoxetine hydrochloride 20 mg oral tablet (4 sources) Serotonin Reuptake Inhibitor Start: 08-30-2023 Paroxetine [...] day for 2 day(s) July, Active Potassium (12 sources) Potassium 99 MG tablet 1 (one) [...] 2023 12:00am spironolactone 25 mg oral tablet (13 sources) Aldosterone Antagonist Start: 08-30-2023 take 25 mg by mouth once daily Spironolactone Active 25 MG PO Daily August 30, 2023 12:00am Spironolactone A ctive tacrolimus 0.5 mg oral capsule (13 sources) Calcineurin Inhibitor Immunosuppressant Start: 01-24-2023 tacrolimus (Prograf) 0.5 MG capsule Take by mouth 2 (two) times a day. 01/24/2023 Active Tacrolimus Activ e triamcinolone acetonide 1 mg/ml [...] day for 30 day(s) Active vitamin B12 (6 sources) Vitamin B12 Start: 08-30-2023 take 1 [...] day(s) Active take 1 tablet by tremaine every twenty-four hours Completed/Discontinued Medications Medication Drug [...] Start: 12-25-2021 take 1 capsule by mo [facility] every eight hours Tessalon Perles 100 MG [...] Problem Date Documented Date Episodic/Chronic Anxiety disorders (6 sources) Mixed anxiety and depressive disorder; Translations: [...] Onset: 4 Chronic Disorders of lipid metabolism (5 sources) Hyperlipidemia, unspecified; Translations: [Hypercholesterolemia] Onset: 2 08-30-2023 Chronic Essential hypertension (8 sources) Hypertensive disorder; Translations: [HTN] Onset: 2 08-30-2023 Chronic Fluid and electrolyte disorders (3 sources) Hyperosmolality and or hypernatremia; Translations: [Hyperosmolality and/or hypernatremia] Episodic Genitourinary congenital anomalies (7 sources) Multiple congenital cysts of kidney; Translations: [Polycystic kidney, unspecified type] Onset: 4 08-30-2023 Chronic Immunizations and screening for infectious disease (6 sources) Contact with and (suspected) exposure to other viral communicable diseases; Translations: [Contact with and (suspected) exposure to other viral communicable diseases] Episodic Menopausal disorders (3 sources) Decreased estrogen level; 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-2023 Chronic Mood disorders (3 sources) Moderate major depression, single episode; Translations: [Major depressive disorder, single episode, moderate] Onset: 3 03-06-2023 Chronic Other acquired deformities (3 sources) Contracture of joint of foot; Translations: [Contracture, [...] te Episodic/Chronic Diseases of mouth; excluding dental (4 sources) Other lesions of oral mucosa; Translations: [Parotitis] Onset: 01-29-2023 Resolved: 01-30-2023 Episodic Genitourinary symptoms and ill-defined conditions (10 sources) Hematuria, unspecified; Translations: [Dysuria] Onset: 12-31-2017 Resolved: 08-14-2021 Episodic Mood disorders (3 sources) Mood disorders Onset: 01-30-2023 01-30-2023 Mycoses (5 sources) Candidiasis of mouth; Translations: [Candidal stomatitis] Onset: 09-02-2023 08-30-2023 Episodic Other aftercare (1 source) Encounter for therapeutic drug level monitoring; Translations: [ENCOUNTER FOR THERAPEUTIC DRUG LEVEL MONITORING] Onset: 03-27-2017 Episodic Other aftercare (2 sources) Other intermediate card tender (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 therapy; Translations: [OTHER SENIOR LIVING (CURRENT) DRUG THERAPY] Onset: 02-26-2017 Episodic Other liver diseases (3 sources) Alkaline phosphatase raised; Translations: [Abnormal levels of other serum enzymes] Onset: 01-29-2023 01-29-2023 Episodic Other screening for suspected conditions (not mental disorders or infectious disease) (7 sources) Encounter for screening mammogram for malignant neoplasm of breast; Translations: [Full blood count abnormal] Onset: 07-23-2022 Episodic Other skin disorders (1 source) Rash and other nonspecific skin eruption Onset: 10-27-2021 Resolved: 10-27-2021 Episodic Other upper respiratory infections (3 sources) Sinusitis; Translations: [Chronic sinusitis, unspecified] Onset: 01-29-2023 Resolved: 01-30-2023 01-30-2023 Chronic Unclassified (1 source) COUGH, UNSPECIFIED; Translations: [COUGH, UNSPECIFIED] Onset: 01-03-2022 Unclassified (1 source) Contact with and (suspected) exposure to covid-19 Z20.822 Urinary tract infections (3 sources) Urinary tract infection, site not specified Onset: 08-14-2021 Resolved: 08-14-2021 Episodic Results Test Name Value Interpretation Reference Range Facility TACROLIMUS (FK506), BLOODon 02-17-2024 TACROLIMUS (FK506), BLOOD 4.5 ng/mL 2.0 - 20.0 ng/mL [facility] Comment on above: This test was develo ped and its performance characteristics determined by [facility]. It has not been cleared or approved by the Food and Drug Administration. Trough (immediately following transplant) 15.0 Trough (steady state, 2 weeks or more after transplant): 3.0 - 8.0 Performed by LC-MS/MS technology. Performed at: [address] [id number] Research Computing Specialist: Marizol Singleton MD, Phone: [phone] [facility] ALL CBC WITH AUTO DIFFon BASOPHILS ABSOLUTE AUTO 0 [facility] Basophils/100 WBC (Bld) 0.3 % 0.2 - 2.0 % [facility] Eosinophils/100 WBC (Bld) 2.1 % 0.9 - 7.0 % [facility] Erythrocyte distribution width (RBC) [Ratio] 14.7 % 11.0 - 15.0 % [facility] Hematocrit (Bld) [Volume fraction] 43.3 % 36.0 - 48.0 % [facility] Hemoglobin (Bld) [Mass/Vol] 14.2 g/dL 12.0 - 16.0 g/dL [facility] IMMATURE GRANULOCYTES ABS AUTO 0.03 [facility] Immature granulocytes/100 WBC (Bld) 0.4 % 0.0 - 0.5 % [facility] LYMPHOCYTES ABSOLUTE AUTO 1.4 [facility] Lymphocytes/100 WBC (Bld) 20.7 % 20.5 - 60.0 % [facility] MCH (RBC) [Entitic mass] 30.9 pg 26.7 - 34.0 pg [facility] MCHC (RBC) [Mass/Vol] 32.8 g/dL 29.9 - 35.2 g/dL [facility] MCV (RBC) [Entitic vol] 94.1 fL 81.0 - 99.0 fL [facility] MONOCYTES ABSOLUTE AUTO 0.7 [facility] Monocytes/100 WBC (Bld) 10.8 % 1.7 - 12.0 % [facility] NEUTROPHILS ABSOLUTE AUTO 4.4 [facility] Neutrophils/100 WBC (Bld) 65.7 % 43.0 - 75.0 % [facility] Platelet mean volume (Bld) [Entitic vol] 11.3 fL 9.5 - 13.5 fL [facility] EO # 0.1 [facility] PLT 193 [facility] TB RBC 4.6 [facility] TB WBC 6.7 [facility] ALL MAGNESIUMon 02-13-2024 Magnesium [Mass/Vol] 1.7 mg/dL Low 1.8 - 2 .4 mg/dL [facility] ALL PHOSPHOROUSon 02-13-2024 Phosphate [Mass/Vol] 3.4 mg/dL 2.6 - 4 .7 mg/dL [facility] ALL URIC ACIDon 02-13-2024 Urate [Mass/Vol] 4.7 mg/dL 2.6 - 6.0 mg/dL [facility] CMP (CMP) (FOR REMOTE FH C USE)on 02-13-2024 Albumin [Mass/Vol] 3.6 g/dL 3.4 - 5.0 g/dL [facility] ALBUMIN GLOBULIN RATIO 1.2 [facility] ALP [Catalytic activity/Vol] 131 U/L High 46 - 116 U/L [facility] ALT [Catalytic activity/Vol] 16 U/L 14 - 59 U/L [facility] Anion gap [Moles/Vol] 14 mmol/L [facility] AST [Catalytic activity/Vol] 13 U/L Low 15 - 37 U/L [facility] Bilirubin [Mass/Vol] 0.6 mg/dL 0.2 - 1 .0 mg/dL [facility] Calcium [Mass/Vol] 9.1 mg/dL 8.5 - 10. 1 mg/dL [facility] Chloride [Moles/Vol] 108 mmol/L High 98 - 10 7 mmol/L [facility] CO2 [Moles/Vol] 26.1 mmol/L 21.0 - 32.0 mmol/L [facility] Creatinine [Mass/Vol] 0.97 mg/dL 0.55 - 1.02 mg/dL [facility] GFR/1.73 sq M.predicted CKD-EPI (S/P/Bld) [Vol rate/Area] >60 >=60 mL/min/1.73m 2 [facility] Globulin (S) [Mass/Vol] 2.9 g/dL [facility] Glucose [Mass/Vol] 95 mg/dL 74 - 106 mg/dL [facility] Potassium [Moles/Vol] 4.1 mmol/L 3.5 - 5.1 mmol/L [facility] Protein [Mass/Vol] 6.5 g/dL 6.4 - 8.2 g/dL [facility] Sodium [Moles/Vol] 144 mmol/L 136 - 145 mmol/L [facility] TBH EGFR-NON AF CZECH 57 Low >=60 mL/min/1.73m 2 [facility] Urea nitrogen [Mass/Vol] 16 mg/dL 7.0 - 18.0 mg/dL [facility] Urea nitrogen/Creatinine [Mass ratio] 16.5 mg/mg [facility] METRO BILIRUBIN, DIRECTon Bilirubin.indirect [Mass/Vol] 0.1 mg/dL 0.0 - 0.2 mg/dL [facility] No Panel Informationon 02-12 Interpretation and review of laboratory results Abnormal [facility] ALL CBC WITH AUTO DIFFon BASOPHILS ABSOLUTE AUTO 0 [facility] Basophils/100 WBC (Bld) 0.1 % Low 0.2 - 2.0 % [facility] Eosinophils/100 WBC (Bld) 2.5 % 0.9 - 7.0 % [facility] Erythrocyte distribution width (RBC) [Ratio] 14.6 % 11.0 - 15.0 % [facility] Hematocrit (Bld) [Volume fraction] 43.8 % 36.0 - 48.0 % [facility] Hemoglobin (Bld) [Mass/Vol] 14 g/dL 12.0 - 16.0 g/dL [facility] IMMATURE GRANULOCYTES ABS AUTO 0.02 [facility] Immature granulocytes/100 WBC (Bld) 0.3 % 0.0 - 0.5 % [facility] Interpretation and review of laboratory results Abnormal [facility] LYMPHOCYTES ABSOLUTE AUTO 1.4 [facility] Lymphocytes/100 WBC (Bld) 18.7 % Low 20.5 - 60.0 % [facility] MCH (RBC) [Entitic mass] 30.3 pg 26.7 - 34.0 pg [facility] MCHC (RBC) [Mass/Vol] 32 g/dL 29.9 - 35.2 g/dL [facility] MCV (RBC) [Entitic vol] 94.8 fL 81.0 - 99.0 fL [facility] MONOCYTES ABSOLUTE AUTO 0.8 [facility] Monocytes/100 WBC (Bld) 11.1 % 1.7 - 12.0 % [facility] NEUTROPHILS ABSOLUTE AUTO 4.9 [facility] Neutrophils/100 WBC (Bld) 67.3 % 43.0 - 75.0 % [facility] Platelet mean volume (Bld) [Entitic vol] 11.2 fL 9.5 - 13.5 fL [facility] EO # 0.2 [facility] PLT 219 [facility] RBC 4.62 [facility] WBC 7.3 [facility] ALL CBC WITH AUTO DIFFon BASOPHILS ABSOLUTE AUTO 0.0 [facility] Basophils/100 WBC (Bld) 0.3 % 0.2 - 2.0 % [facility] Eosinophils/100 WBC (Bld) 3.6 % 0.9 - 7.0 % [facility] Erythrocyte distribution width (RBC) [Ratio] 14.7 % 11.0 - 15.0 % [facility] Hematocrit (Bld) [Volume fraction] 46.0 % 36.0 - 48.0 % [facility] Hemoglobin (Bld) [Mass/Vol] 14.7 g/dL 12.0 - 16.0 g/dL [facility] IMMATURE GRANULOCYTES ABS AUTO 0.01 [facility] Immature granulocytes/100 WBC (Bld) 0.2 % 0.0 - 0.5 % [facility] LYMPHOCYTES ABSOLUTE AUTO 1.4 [facility] Lymphocytes/100 WBC (Bld) 22.4 % 20.5 - 60.0 % [facility] MCH (RBC) [Entitic mass] 30.1 pg 26.7 - 34.0 pg [facility] MCHC (RBC) [Mass/Vol] 32.0 g/dL 29.9 - 35.2 g/dL [facility] MCV (RBC) [Entitic vol] 94.3 fL 81.0 - 99.0 fL [facility] MONOCYTES ABSOLUTE AUTO 0.6 [facility] Monocytes/100 WBC (Bld) 9.6 % 1.7 - 12.0 % [facility] NEUTROPHILS ABSOLUTE AUTO 3.9 [facility] Neutrophils/100 WBC (Bld) 63.9 % 43.0 - 75.0 % [facility] Platelet mean volume (Bld) [Entitic vol] 11.6 fL 9.5 - 13.5 fL [facility] TBH EO # 0.2 [facility]H PLT 202 [facility] TB RBC 4.88 [facility] TBH WBC 6.0 [facility] MLR HEMOGLOBIN A1Con 024 Glucose [Mass/Vol] 108 mg/dL [facility] HbA1c (Bld) [Mass fraction] 5.4 % 4.5 - 6.2 % [facility] Comment on above: ADA RECOMMENDED LIMI T 4.0 - 6.0 ADA THERAPEUTIC TARGET < 7.0 ACTION SUGGESTED > 7.[facility] Documentation [id number] Tanika Grimm 1955 F Date Provider Department Center 12/09/2023 FERNANDA MARVIN None Family History Family Status - Relation Status Age at Mother Father Reason for Visit and Comments: Prior auth : Mycophenolate [Other] Normal [facility] Documentationon 11-26-2023 Documentation [id number] Tanika Grimm 1955 F Date Provider Department Center 11/26/2023 FERNANDA MARVIN None Family History Family Status - Relation Status Age at Mother Father Reason for Visit and Comments: Prior auth Tac 0.5mg [Other] [facility] Documentationon 10-27-2023 Documentation [id number] Tanika Grimm 1955 Provider Department Center 10/27/2023 750-RUTH, TYMARA TXP None Family History Family Status - Relation Status Age at Mother Father [facility] 29on 09-23-2023 29 Addended by: DIANE LE on: 09/23/2023 03:27 PM Modules accepted: Orders [facility] Follow-Upon 09-23-2023 Follow-Up [id number] Tanika Grimm 1955 Provider Department Center 09/23/2023 124-VIRGIL HAYNES TXP None Family History Family Status - Relation Status Age at Mother Father Level of Service:71403 [place] OFFICE/OUTPATIENT ESTABLISHED MOD MDM 30 MIN Reason for Visit and Comments: Kidney Follow-up [] - Pt has been having sores in her mouth for the past month. [facility] No Panel InformationOrdered By: Lindsay Soria on 08-30-2023 Quick Strep (POC) [facility] Documentationon 08-26-2023 Documentation [id number] Tanika Grimm 1955 Provider Department Center 08/26/2023 750-RUTH, TYMARA TXP None No family history on file [facility] Documentationon 05-19-2023 Documentation [id number] Tanika Grimm 1955 Provider Department Center 05/19/2023 750-RUTH, TYMARA TXP None No family history on file [facility] COVID/FLU/RSV RT-PCRon 03-27 SARS-CoV-2 (COVID-19) RNA MURALI+probe Ql (Unsp spec) Negative [employer] Other COVID/FLU/RSV RT-PCR Negative [facility] [employer] [facility] Other Quick Strepon 03-27-2023 S. pyogenes Org specific cx Ql (Throat) Negative [employer] Other Quick Strep [employer] Other 29on 03-17-2023 29 Addended by: TOSHA LAGOS on: 03/17/2023 11:44 AM Modules accepted: Orders [facility] Follow-Upon 03-17-2023 Follow-Up [id number] Tanika Grimm 1955 Date Provider Department Center 03/17/2023 124-VIRGIL HAYNES TXP None No family history on file Level of Service:12377 [place] OFFICE/OUTPATIENT ESTABLISHED LOW MDM 20 MIN Reason for Visit and Comments: Kidney Follow-up [[id number]] - Patient would like to know if Virgil would prescribe depression medication. [facility] 36on 01-31-2023 36 Transplant Pharmacis t - [...] need for taper. The patient's verbalized understanding. Handhole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 added medication to med list. The patient's stated patient will be getting a DEXA scan and recommended to not have calcium 3 days before. Reviewed medication list for any products containing calcium - no medications found. No other questions or concerns at this time. [facility] Telephoneon 01-31-2023 Telephone [id number] Tanika Grimm 1955 Provider Department Center 01/31/2023 3915-JAH PAGE TXP None No family history on file Reason for Visit and Comments: Transplant Pharmacist - Drug Information [[id number]] [facility] BILIRUBIN CONJUGATED (DIRECT )on 08-12-2022 BILI, CONJUGATED 0.1 mg/dL Normal 0.0-0.2 [facility] Comment on above: Performed By: #### D DAVIDSON, MG, PHOS, CMP, LIPID, URIC #### [facility] [address] [address] [address] Sarmad Patino GLYCOHEMOGLOBIN A1Con 2022 ADA RECOMMENDATION SEE BELOW Normal [facility] Comment on above: Result Comment: ADA RECOMMENDED LIMIT 4.0 - 6.0 ADA THERAPEUTIC TARGET < 7.0 ACTION SUGGESTED > 7.0 Performed By: #### D DAVIDSON, MG, PHOS, CMP, LIPID, URIC #### [facility] [address] [address] [address] Sarmad Patino Glucose [Mass/Vol] 108 mg/dL Normal [facility] Comment on above: Performed By: #### D DAVIDSON, MG, PHOS, CMP, LIPID, URIC #### [facility] [address] [place] [address] Dr. Sarmad Patino HbA1c (Bld) [Mass fraction] 5.4 % Normal 4.5-6.2 [facility] Comment on above: Performed By: #### D DAVIDSON, MG, PHOS, CMP, LIPID, URIC #### [facility] [address] [address] [address] Sarmad Patino MAGNESIUMon 08-12-2022 Magnesium [Mass/Vol] 1.7 mg/dL Critically low 1.8-2.4 [facility] Comment on above: Performed By: #### D DAVIDSON, MG, PHOS, CMP, LIPID, URIC #### [facility] [address] [place] [address] Dr. Sarmad Patino PHOSPHORUSon 08-12-2022 Phosphate [Mass/Vol] 3.9 mg/dL Normal 2.6-4.7 [facility] Comment on above: Performed By: #### U JUVE, LIPID, MG, CMP, DBIL, PHOS #### [facility] [address] [place] [address] Dr. Sarmad Patino PROF 14(COMP METB)on 023 Albumin [Mass/Vol] 3.9 g/dL Normal 3.4-5.0 [facility] Comment on above: Performed By: #### D DAVIDSON, MG, PHOS, CMP, LIPID, URIC #### [facility] [address] [address] [address] Sarmad Patino Albumin/Globulin [Mass ratio] 1.2 {ratio} Normal [facility] Comment on above: Performed By: #### D DAVIDSON, MG, PHOS, CMP, LIPID, URIC #### [facility] [address] [address] [address] Sarmad Patino ALP [Catalytic activity/Vol] 126 U/L Critically high 46-116 [facility] Comment on above: Performed By: #### D DAVIDSON, MG, PHOS, CMP, LIPID, URIC #### [facility] [address] [place] [address] Dr. Sarmad Patino ALT [Catalytic activity/Vol] 18 U/L Normal 14-59 [facility] Comment on above: Performed By: #### D DAVIDSON, MG, PHOS, CMP, LIPID, URIC #### [facility] [address] [place] [address] Dr. Sarmad Patino Anion gap [Moles/Vol] 10.4 mmol/L Normal [facility] Comment on above: Performed By: #### D DAVIDSON, MG, PHOS, CMP, LIPID, URIC #### [facility] [address] [place] [address] Dr. Sarmad Patino AST [Catalytic activity/Vol] 14 U/L Critically low 15-37 [facility] Comment on above: Performed By: #### D DAVIDSON, MG, PHOS, CMP, LIPID, URIC #### [facility] [address] [place] [address] Dr. Sarmad Patino Bilirubin [Mass/Vol] 0.7 mg/dL Normal 0.2-1.0 [facility] Comment on above: Performed By: #### D DAVIDSON, MG, PHOS, CMP, LIPID, URIC #### [facility] [address] [place] [address] Dr. Sarmad Patino Calcium [Mass/Vol] 9.8 mg/dL Normal 8.5-10.1 [facility] Comment on above: Performed By: #### D DAVDISON, MG, PHOS, CMP, LIPID, URIC #### [facility] [address] [address] [address] Sarmad Patino Chloride [Moles/Vol] 106 mmol/L Normal 98-107 [facility] Comment on above: Performed By: #### D DAVIDSON, MG, PHOS, CMP, LIPID, URIC #### [facility] [address] [address] [address] Sarmad Patino CO2 [Moles/Vol] 32.1 mmol/L Critically high 21.0-32.0 [facility] Comment on above: Performed By: #### D DAVIDSON, MG, PHOS, CMP, LIPID, URIC #### [facility] [address] [place] [address] Dr. Sarmad Patino Creatinine [Mass/Vol] 0.92 mg/dL Normal 0.55-1.02 [facility] Comment on above: Performed By: #### D DAVIDSON, MG, PHOS, CMP, LIPID, URIC #### [facility] [facility] [address] [address] [address] Sarmad Patino EGFR-AF CZECH >60 Normal >=60 [facility] Comment on above: Performed By: #### D DAVIDSON, MG, PHOS, CMP, LIPID, URIC #### [facility] [address] [address] [address] Sarmad Patino EGFR-NON AF CZECH >60 Normal >=60 [facility] Comment on above: Performed By: #### D DAVIDSON, MG, PHOS, CMP, LIPID, URIC #### [facility] [address] [address] [address] Sarmad Patino Globulin (S) [Mass/Vol] 3.3 g/dL Normal The [facility] Comment on above: Performed By: #### D DAVIDSON, MG, PHOS, CMP, LIPID, URIC #### [facility] [address] [address] [address] Sarmad Patino Glucose [Mass/Vol] 102 mg/dL Normal 74-106 [facility] Comment on above: Performed By: #### D DAVIDSON, MG, PHOS, CMP, LIPID, URIC #### [facility] [address] [address] [address] Sarmad Patino Potassium [Moles/Vol] 4.5 mmol/L Normal 3.5-5.1 [facility] Comment on above: Performed By: #### D DAVIDSON, MG, PHOS, CMP, LIPID, URIC #### [facility] [address] [place] [address] Dr. Sarmad Patino Protein [Mass/Vol] 7.2 g/dL Normal 6.4-8.2 [facility] Comment on above: Performed By: #### D DAVIDSON, MG, PHOS, CMP, LIPID, URIC #### [facility] [address] [place] [address] Dr. Sarmad Patino Sodium [Moles/Vol] 144 mmol/L Normal 136-145 [facility] Comment on above: Performed By: #### D DAVIDSON, MG, PHOS, CMP, LIPID, URIC #### [facility] [address] [place] [address] Dr. Sarmad Patino Urea nitrogen [Mass/Vol] 20.0 mg/dL Critically high 7.0-18.0 The [facility] Comment on above: Performed By: #### D DAVIDSON, MG, PHOS, CMP, LIPID, URIC #### [facility] [address] [place] [address] Dr. Sarmad Patino Urea nitrogen/Creatinine [Mass ratio] 21.7 mg/mg Normal The [facility] Comment on above: Performed By: #### D DAVIDSON, MG, PHOS, CMP, LIPID, URIC #### [facility] [address] [place] [address] Dr. Sarmad Patino URIC ACID SERUMon 08-12-2022 Urate [Mass/Vol] 5.2 mg/dL Normal 2.6-6.0 [facility] Comment on above: Performed By: #### D DAVIDSON, MG, PHOS, CMP, LIPID, URIC #### [facility] [address] [place] [address] Dr. Sarmad Patino MG MAMM SCREEN 3D DAVIDSON CADon 07-23-2022 MG MAMM SCREEN 3D DAVIDSON CAD Patient: TANIKA GRIMM Exam Date: 07/23/2022 : 1955 Gender:F Ordering : DR RAMON CARROLL M.D. Admission #: [id number] Family : Order #: [id number] CLICK HERE TO VIEW EXAM RADIOLOGY REPORT [...] Treatments None Family Cancers None LOCATION: The [facility] BREAST COMPOSITION: Extremely dense, which lowers [...] M.D. on 07/23/2022 at 16:59 Normal The [facility] FK506 (TACROLIMUS) WHOLE BLO ODon 07-10-2022 Tacrolimus (FK506), Blood 3.8 ng/mL Normal 2.0-20.0 [facility] Comment on above: Result Comment: Trou gh (immediately following transplant) 15.0 . Trough (steady state, 2 weeks or more after transplant): 3.0 - 8.0 . Performed by LC-MS/MS technology. Performed By: #### D DAVIDSON, MG, PHOS, CMP, LIPID, URIC #### [facility] [address] [place] [address] Dr. Sarmad Patino BILIRUBIN CONJUGATED (DIRECT )on 07-08-2022 BILI, CONJUGATED 0.1 mg/dL Normal 0.0-0.2 [facility] Comment on above: Performed By: #### U JUVE, LIPID, MG, CMP, DBIL, PHOS #### [facility] [address] [place] [address] Dr. Sarmad Patino GLYCOHEMOGLOBIN A1Con 2022 ADA RECOMMENDATION SEE BELOW Normal [facility] Comment on above: Result Comment: ADA RECOMMENDED LIMIT 4.0 - 6.0 ADA THERAPEUTIC TARGET < 7.0 ACTION SUGGESTED > 7.0 Performed By: #### D DAVIDSON, MG, PHOS, CMP, LIPID, URIC #### [facility] [address] [address] [address] Sarmad Patino Glucose [Mass/Vol] 105 mg/dL Normal [facility] Comment on above: Performed By: #### D DAVIDSON, MG, PHOS, CMP, LIPID, URIC #### [facility] [address] [place] [address] Dr. Sarmad Patino HbA1c (Bld) [Mass fraction] 5.3 % Normal 4.5-6.2 [facility] Comment on above: Performed By: #### D DAVIDSON, MG, PHOS, CMP, LIPID, URIC #### [facility] [address] [address] [address] Sarmad Patino MAGNESIUMon 07-08-2022 Magnesium [Mass/Vol] 1.8 mg/dL Normal 1.8-2.4 [facility] Comment on above: Performed By: #### U JUVE, LIPID, MG, CMP, DBIL, PHOS #### [facility] [address] [address] [address] Sarmad Patino PHOSPHORUSon 07-08-2022 Phosphate [Mass/Vol] 3.8 mg/dL Normal 2.6-4.7 [facility] Comment on above: Performed By: #### U JUVE, LIPID, MG, CMP, DBIL, PHOS #### [facility] [address] [place] [address] Dr. Sarmad Patino PROF 14(COMP METB)on 023 Albumin [Mass/Vol] 3.7 g/dL Normal 3.4-5.0 [facility] Comment on above: Performed By: #### U JUVE, LIPID, MG, CMP, DBIL, PHOS #### [facility] [address] [address] [address] Sarmad Patino Albumin/Globulin [Mass ratio] 1.1 {ratio} Normal [facility] Comment on above: Performed By: #### U JUVE, LIPID, MG, CMP, DBIL, PHOS #### [facility] [address] [address] [address] Sarmad Patino ALP [Catalytic activity/Vol] 124 U/L Critically high 46-116 [facility] Comment on above: Performed By: #### U JUVE, LIPID, MG, CMP, DBIL, PHOS #### [facility] [address] [place] [address] Dr. Sarmad Patino ALT [Catalytic activity/Vol] 20 U/L Normal 14-59 [facility] Comment on above: Performed By: #### U JUVE, LIPID, MG, CMP, DBIL, PHOS #### [facility] [address] [place] [address] Dr. Sarmad Patino Anion gap [Moles/Vol] 11.5 mmol/L Normal [facility] Comment on above: Performed By: #### U JUVE, LIPID, MG, CMP, DBIL, PHOS #### [facility] [address] [place] [address] Dr. Sarmad Patino AST [Catalytic activity/Vol] 12 U/L Critically low 15-37 [facility] Comment on above: Performed By: #### U JUEV, LIPID, MG, CMP, DBIL, PHOS #### [facility] [address] [address] [address] Sarmad Patino Bilirubin [Mass/Vol] 0.5 mg/dL Normal 0.2-1.0 [facility] Comment on above: Performed By: #### U JUVE, LIPID, MG, CMP, DBIL, PHOS #### [facility] [address] [place] [address] Dr. Sarmad Patino Calcium [Mass/Vol] 9.6 mg/dL Normal 8.5-10.1 [facility] Comment on above: Performed By: #### U JUVE, LIPID, MG, CMP, DBIL, PHOS #### [facility] [address] [address] [address] Sarmad Patino Chloride [Moles/Vol] 106 mmol/L Normal 98-107 [facility] Comment on above: Performed By: #### U JUVE, LIPID, MG, CMP, DBIL, PHOS #### [facility] [address] [address] [address] Sarmad Patino CO2 [Moles/Vol] 29.7 mmol/L Normal 21.0-32.0 [facility] Comment on above: Performed By: #### U JUVE, LIPID, MG, CMP, DBIL, PHOS #### [facility] [address] [place] [address] Dr. Sarmad Patino Creatinine [Mass/Vol] 0.77 mg/dL Normal 0.55-1.02 [facility] Comment on above: Performed By: #### U JUVE, LIPID, MG, CMP, DBIL, PHOS #### [facility] [address] [address] [address] Sarmad Patino EGFR-AF CZECH >60 Normal >=60 [facility] Comment on above: Performed By: #### U JUVE, LIPID, MG, CMP, DBIL, PHOS #### [facility] [address] [place] [address] Dr. Sarmad aPtino EGFR-NON AF CZECH >60 Normal >=60 [facility] Comment on above: Performed By: #### U JUVE, LIPID, MG, CMP, DBIL, PHOS #### [facility] [address] [address] [address] Sarmad Patino Globulin (S) [Mass/Vol] 3.4 g/dL Normal [facility] Comment on above: Performed By: #### U JUVE, LIPID, MG, CMP, DBIL, PHOS #### [facility] [address] [address] [address] Sarmad Patino Glucose [Mass/Vol] 97 mg/dL Normal 74-106 [facility] Comment on above: Performed By: #### U JUVE, LIPID, MG, CMP, DBIL, PHOS #### [facility] [address] [address] [address] Sarmad Patino Potassium [Moles/Vol] 4.2 mmol/L Normal 3.5-5.1 [facility] Comment on above: Performed By: #### U JUVE, LIPID, MG, CMP, DBIL, PHOS #### [facility] [address] [address] [address] Sarmad Patino Protein [Mass/Vol] 7.1 g/dL Normal 6.4-8.2 [facility] Comment on above: Performed By: #### U JUVE, LIPID, MG, CMP, DBIL, PHOS #### [facility] [address] [place] [address] Dr. Sarmad Patino Sodium [Moles/Vol] 143 mmol/L Normal 136-145 [facility] Comment on above: Performed By: #### U JUVE, LIPID, MG, CMP, DBIL, PHOS #### [facility] [address] [address] [address] Sarmad Patino Urea nitrogen [Mass/Vol] 26.0 mg/dL Critically high 7.0-18.0 [facility] Comment on above: Performed By: #### U JUVE, LIPID, MG, CMP, DBIL, PHOS #### [facility] [address] [place] [address] Dr. Sarmad Patino Urea nitrogen/Creatinine [Mass ratio] 33.8 mg/mg Normal The [facility] Comment on above: Performed By: #### U JUVE, LIPID, MG, CMP, DBIL, PHOS #### [facility] [address] [place] [address] Dr. Sarmad Patino URIC ACID SERUMon 07-08-2022 Urate [Mass/Vol] 4.7 mg/dL Normal 2.6-6.0 [facility] Comment on above: Performed By: #### U JUVE, LIPID, MG, CMP, DBIL, PHOS #### [facility] [address] [place] [address] Dr. Sarmad Patino FK506 (TACROLIMUS) WHOLE BLO ODon 06-13-2022 Tacrolimus (FK506), Blood 3.0 ng/mL Normal 2.0-20.0 [facility] Comment on above: Result Comment: Trou gh (immediately following transplant) 15.0 . Trough (steady state, 2 weeks or more after transplant): 3.0 - 8.0 . Performed by LC-MS/MS technology. Performed By: #### D DAVIDSON, MG, PHOS, CMP, LIPID, URIC #### [facility] [address] [place] [address] Dr. Sarmad Patino BK VIRUS PCR QUANTon 023 BKV DNA QUANT PCR PLASMA Negative Normal Negative The [facility] Comment on above: Result Comment: No B K DNA detected. . The linear range of the assay is 22 - 100,000,000 IU/mL. Performed By: #### B KVIRUS #### [facility] [address] [place] [address] Dr. Sarmad Patino Log10 BKV DNA Plasma Normal [facility] Comment on above: Performed By: #### B KVIRUS #### [facility] [address] [place] [address] Dr. Sarmad Patino BILIRUBIN CONJUGATED (DIRECT )on 06-10-2022 BILI, CONJUGATED 0.1 mg/dL Normal 0.0-0.2 [facility] Comment on above: Performed By: #### U JUVE, LIPID, MG, CMP, DBIL, PHOS #### [facility] [address] [place] [address] Dr. Sarmad Patino GLYCOHEMOGLOBIN A1Con 2022 ADA RECOMMENDATION SEE BELOW Normal [facility] Comment on above: Result Comment: ADA RECOMMENDED LIMIT 4.0 - 6.0 ADA THERAPEUTIC TARGET < 7.0 ACTION SUGGESTED > 7.0 Performed By: #### D DAVIDSON, MG, PHOS, CMP, LIPID, URIC #### [facility] [address] [place] [address] Dr. Sarmad Patino Glucose [Mass/Vol] 114 mg/dL Normal [facility] Comment on above: Performed By: #### D DAVIDSON, MG, PHOS, CMP, LIPID, URIC #### [facility] [address] [address] [address] Sarmad Patino HbA1c (Bld) [Mass fraction] 5.6 % Normal 4.5-6.2 [facility] Comment on above: Performed By: #### D DAVIDSON, MG, PHOS, CMP, LIPID, URIC #### [facility] [address] [address] [address] Sarmad Patino MAGNESIUMon 06-10-2022 Magnesium [Mass/Vol] 1.6 mg/dL Critically low 1.8-2.4 [facility] Comment on above: Performed By: #### U JUVE, LIPID, MG, CMP, DBIL, PHOS #### [facility] [address] [place] [address] Dr. Sarmad Patino PROF 14(COMP METB)on 023 Albumin [Mass/Vol] 3.7 g/dL Normal 3.4-5.0 [facility] Comment on above: Performed By: #### U JUVE, LIPID, MG, CMP, DBIL, PHOS #### [facility] [address] [address] [address] Sarmad Patino Albumin/Globulin [Mass ratio] 1.1 {ratio} Normal [facility] Comment on above: Performed By: #### U JUVE, LIPID, MG, CMP, DBIL, PHOS #### [facility] [address] [place] [address] Dr. Sarmad Patino ALP [Catalytic activity/Vol] 142 U/L Critically high 46-116 [facility] Comment on above: Performed By: #### U JUVE, LIPID, MG, CMP, DBIL, PHOS #### [facility] [address] [address] [address] Sarmad Patino ALT [Catalytic activity/Vol] 29 U/L Normal 14-59 [facility] Comment on above: Performed By: #### U JUVE, LIPID, MG, CMP, DBIL, PHOS #### [facility] [address] [address] [address] Sarmad Patino Anion gap [Moles/Vol] 11.1 mmol/L Normal Th e [facility] Comment on above: Performed By: #### U JUVE, LIPID, MG, CMP, DBIL, PHOS #### [facility] [address] [place] [address] Dr. Sarmad Patino AST [Catalytic activity/Vol] 19 U/L Normal 15-37 [facility] Comment on above: Performed By: #### U JUVE, LIPID, MG, CMP, DBIL, PHOS #### [facility] [address] [address] [address] Sarmad Patino Bilirubin [Mass/Vol] 0.6 mg/dL Normal 0.2-1.0 [facility] Comment on above: Performed By: #### U JUVE, LIPID, MG, CMP, DBIL, PHOS #### [facility] [address] [place] [address] Dr. Sarmad Patino Calcium [Mass/Vol] 9.8 mg/dL Normal 8.5-10.1 [facility] Comment on above: Performed By: #### U JUVE, LIPID, MG, CMP, DBIL, PHOS #### [facility] [address] [place] [address] Dr. Sarmad Patino Chloride [Moles/Vol] 103 mmol/L Normal 98-107 [facility] Comment on above: Performed By: #### U JUVE, LIPID, MG, CMP, DBIL, PHOS #### [facility] [address] [place] [address] Dr. Sarmad Patino CO2 [Moles/Vol] 30.7 mmol/L Normal 21.0-32.0 [facility] Comment on above: Performed By: #### U JUVE, LIPID, MG, CMP, DBIL, PHOS #### [facility] [address] [place] [address] Dr. Sarmad Pation Creatinine [Mass/Vol] 0.79 mg/dL Normal 0.55-1.02 [facility] Comment on above: Performed By: #### U JUVE, LIPID, MG, CMP, DBIL, PHOS #### [facility] [address] [place] [address] Dr. Sarmad Patino EGFR-AF CZECH >60 Normal >=60 [facility] Comment on above: Performed By: #### U JUVE, LIPID, MG, CMP, DBIL, PHOS #### [facility] [address] [address] [address] Sarmad Patino EGFR-NON AF CZECH >60 Normal >=60 [facility] Comment on above: Performed By: #### U JUVE, LIPID, MG, CMP, DBIL, PHOS #### [facility] [address] [address] [address] Sarmad Patino Globulin (S) [Mass/Vol] 3.4 g/dL Normal [facility] Comment on above: Performed By: #### U JUVE, LIPID, MG, CMP, DBIL, PHOS #### [facility] [address] [place] [address] Dr. Sarmad Patino Glucose [Mass/Vol] 94 mg/dL Normal 74-106 [facility] Comment on above: Performed By: #### U JUVE, LIPID, MG, CMP, DBIL, PHOS #### [facility] [address] [address] [address] Sarmad Patino Potassium [Moles/Vol] 3.8 mmol/L Normal 3.5-5.1 [facility] Comment on above: Performed By: #### U JUVE, LIPID, MG, CMP, DBIL, PHOS #### [facility] [address] [address] [address] Sarmad Patino Protein [Mass/Vol] 7.1 g/dL Normal 6.4-8.2 [facility] Comment on above: Performed By: #### U JUVE, LIPID, MG, CMP, DBIL, PHOS #### [facility] [address] [address] [address] Sarmad Patino Sodium [Moles/Vol] 141 mmol/L Normal 136-145 [facility] Comment on above: Performed By: #### U JUVE, LIPID, MG, CMP, DBIL, PHOS #### [facility] [address] [address] [address] Sarmad Patino Urea nitrogen [Mass/Vol] 17.0 mg/dL Normal 7.0-18.0 [facility] Comment on above: Performed By: #### U JUVE, LIPID, MG, CMP, DBIL, PHOS #### [facility] [address] [place] [address] Dr. Sarmad Patino Urea nitrogen/Creatinine [Mass ratio] 21.5 mg/mg Normal [facility] Comment on above: Performed By: #### U JUVE, LIPID, MG, CMP, DBIL, PHOS #### [facility] [address] [place] [address] Dr. Sarmad Patino URIC ACID SERUMon 06-10-2022 Urate [Mass/Vol] 5.1 mg/dL Normal 2.6-6.0 [facility] Comment on above: Performed By: #### U JUVE, LIPID, MG, CMP, DBIL, PHOS #### [facility] [address] [place] [address] Dr. Sarmad Patino BK VIRUS PCR QUANTon 023 BKV DNA QUANT PCR PLASMA Negative Normal Negative [facility] Comment on above: Result Comment: No B K DNA detected. . The linear range of the assay is 22 - 100,000,000 IU/mL. Performed By: #### U JUVE, LIPID, MG, CMP, DBIL, PHOS #### [facility] [address] [place] [address] Dr. Sarmad Patino Log10 BKV DNA Plasma Normal [facility] Comment on above: Performed By: #### U JUVE, LIPID, MG, CMP, DBIL, PHOS #### [facility] [address] [place] [address] Dr. Sarmad Patino FK506 (TACROLIMUS) WHOLE BLO ODon 05-13-2022 Tacrolimus (FK506), Blood 4.1 ng/mL Normal 2.0-20.0 [facility] Comment on above: Result Comment: Trou gh (immediately following transplant) 15.0 . Trough (steady state, 2 weeks or more after transplant): 3.0 - 8.0 . Performed by LC-MS/MS technology. Performed By: #### U JUVE, LIPID, MG, CMP, DBIL, PHOS #### [facility] [address] [address] [address] Sarmad Patino BILIRUBIN CONJUGATED (DIRECT )on 05-10-2022 BILI, CONJUGATED 0.1 mg/dL Normal 0.0-0.2 [facility] Comment on above: Performed By: #### D DAVIDSON, MG, PHOS, CMP, LIPID, URIC #### [facility] [address] [address] [address] Sarmad Patino GLYCOHEMOGLOBIN A1Con 2022 ADA RECOMMENDATION SEE BELOW Normal [facility] Comment on above: Result Comment: ADA RECOMMENDED LIMIT 4.0 - 6.0 ADA THERAPEUTIC TARGET < 7.0 ACTION SUGGESTED > 7.0 Performed By: #### D DAVIDSON, MG, PHOS, CMP, LIPID, URIC #### [facility] [address] [place] [address] Dr. Sarmad Patino Glucose [Mass/Vol] 108 mg/dL Normal [facility] Comment on above: Performed By: #### D DAVIDSON, MG, PHOS, CMP, LIPID, URIC #### [facility] [address] [address] [address] Sarmad Patino HbA1c (Bld) [Mass fraction] 5.4 % Normal 4.5-6.2 [facility] Comment on above: Performed By: #### D DAVIDSON, MG, PHOS, CMP, LIPID, URIC #### [facility] [address] [place] [address] Dr. Sarmad Patino MAGNESIUMon 05-10-2022 Magnesium [Mass/Vol] 1.9 mg/dL Normal 1.8-2.4 [facility] Comment on above: Performed By: #### U JUVE, LIPID, MG, CMP, DBIL, PHOS #### [facility] [address] [address] [address] Sarmad Patino PROF 14(COMP METB)on 023 Albumin [Mass/Vol] 3.9 g/dL Normal 3.4-5.0 [facility] Comment on above: Performed By: #### D DAVIDSON, MG, PHOS, CMP, LIPID, URIC #### [facility] [address] [place] [address] Dr. Sarmad Patino Albumin/Globulin [Mass ratio] 1.2 {ratio} Normal [facility] Comment on above: Performed By: #### D DAVIDSON, MG, PHOS, CMP, LIPID, URIC #### [facility] [address] [address] [address] Sarmad Patino ALP [Catalytic activity/Vol] 114 U/L Normal 46-116 [facility] Comment on above: Performed By: #### D DAVIDSON, MG, PHOS, CMP, LIPID, URIC #### [facility] [address] [place] [address] Dr. Sarmad Patino ALT [Catalytic activity/Vol] 18 U/L Normal 14-59 [facility] Comment on above: Performed By: #### D DAVIDSON, MG, PHOS, CMP, LIPID, URIC #### [facility] [address] [place] [address] Dr. Sarmad Patino Anion gap [Moles/Vol] 15.9 mmol/L Normal [facility] Comment on above: Performed By: #### D DAVIDSON, MG, PHOS, CMP, LIPID, URIC #### [facility] [address] [place] [address] Dr. Sarmad Patino AST [Catalytic activity/Vol] 17 U/L Normal 15-37 [facility] Comment on above: Performed By: #### D DAVIDSON, MG, PHOS, CMP, LIPID, URIC #### [facility] [address] [place] [address] Dr. Sarmad Patino Bilirubin [Mass/Vol] 0.4 mg/dL Normal 0.2-1.0 [facility] Comment on above: Performed By: #### D DAVIDSON, MG, PHOS, CMP, LIPID, URIC #### [facility] [address] [place] [address] Dr. Sarmad Patino Calcium [Mass/Vol] 9.8 mg/dL Normal 8.5-10.1 [facility] Comment on above: Performed By: #### D DAVIDSON, MG, PHOS, CMP, LIPID, URIC #### [facility] [address] [address] [address] Sarmad Patino Chloride [Moles/Vol] 103 mmol/L Normal 98-107 [facility] Comment on above: Performed By: #### D DAVIDSON, MG, PHOS, CMP, LIPID, URIC #### [facility] [address] [place] [address] Dr. Sarmad Patino CO2 [Moles/Vol] 29.2 mmol/L Normal 21.0-32.0 [facility] Comment on above: Performed By: #### D DAVIDSON, MG, PHOS, CMP, LIPID, URIC #### [facility] [address] [place] [address] Dr. Sarmad Patino Creatinine [Mass/Vol] 0.74 mg/dL Normal 0.55-1.02 [facility] Comment on above: Performed By: #### D DAVIDSON, MG, PHOS, CMP, LIPID, URIC #### [facility] [address] [place] [address] Dr. Sarmad Patino EGFR-AF CZECH >60 Normal >=60 [facility] Comment on above: Performed By: #### D DAVIDSON, MG, PHOS, CMP, LIPID, URIC #### [facility] [address] [place] [address] Dr. Sarmad Patino EGFR-NON AF CZECH >60 Normal >=60 [facility] Comment on above: Performed By: #### D DAVIDSON, MG, PHOS, CMP, LIPID, URIC #### [facility] [address] [place] [address] Dr. Sarmad Patino Globulin (S) [Mass/Vol] 3.2 g/dL Normal [facility] Comment on above: Performed By: #### D DAVIDSON, MG, PHOS, CMP, LIPID, URIC #### [facility] [address] [address] [address] Sarmad Patino Glucose [Mass/Vol] 94 mg/dL Normal 74-106 [facility] Comment on above: Performed By: #### D DAVIDSON, MG, PHOS, CMP, LIPID, URIC #### [facility] [address] [place] [address] Dr. Sarmad Patino Potassium [Moles/Vol] 4.1 mmol/L Normal 3.5-5.1 [facility] Comment on above: Performed By: #### D DAVIDSON, MG, PHOS, CMP, LIPID, URIC #### [facility] [address] [address] [address] Sarmad Patino Protein [Mass/Vol] 7.1 g/dL Normal 6.4-8.2 [facility] Comment on above: Performed By: #### D DAVIDSON, MG, PHOS, CMP, LIPID, URIC #### [facility] [address] [address] [address] Sarmad Patino Sodium [Moles/Vol] 144 mmol/L Normal 136-145 [facility] Comment on above: Performed By: #### D DAVIDSON, MG, PHOS, CMP, LIPID, URIC #### [facility] [address] [place] [address] Dr. Sarmad Patino Urea nitrogen [Mass/Vol] 18.0 mg/dL Normal 7.0-18.0 [facility] Comment on above: Performed By: #### D DAVIDSON, MG, PHOS, CMP, LIPID, URIC #### [facility] [address] [address] [address] Sarmad Patino Urea nitrogen/Creatinine [Mass ratio] 24.3 mg/mg Normal [facility] Comment on above: Performed By: #### D DAVIDSON, MG, PHOS, CMP, LIPID, URIC #### [facility] [address] [place] [address] Dr. Sarmad Patino URIC ACID SERUMon 05-10-2022 Urate [Mass/Vol] 5.1 mg/dL Normal 2.6-6.0 [facility] Comment on above: Performed By: #### U JUVE, LIPID, MG, CMP, DBIL, PHOS #### [facility] [address] [place] [address] Dr. Sarmad Patino MYCOPHENOLIC ACIDon 04-17-19 Mycophenolic Acid 1.2 ug/mL Normal 1.0-3.5 [facility] Comment on above: Performed By: #### D DAVIDSON, MG, PHOS, CMP, LIPID, URIC #### [facility] [address] [place] [address] Dr. Sarmad Patino Mycophenolic Acid Glucuronide 37 ug/mL Normal 15-125 [facility] Comment on above: Result Comment: [facility] 's Reference Range: 35-100 mcg/mL. Performed By: #### D DAVIDSON, MG, PHOS, CMP, LIPID, URIC #### [facility] [address] [place] [address] Dr. Sarmad Patino FK506 (TACROLIMUS) WHOLE BLO ODon 04-10-2022 Tacrolimus (FK506), Blood 4.2 ng/mL Normal 2.0-20.0 [facility] Comment on above: Result Comment: Trou gh (immediately following transplant) 15.0 . Trough (steady state, 2 weeks or more after transplant): 3.0 - 8.0 . Performed by LC-MS/MS technology. Performed By: #### D DAVIDSON, MG, PHOS, CMP, LIPID, URIC #### [facility] [address] [place] [address] Dr. Sarmad Patino BILIRUBIN CONJUGATED (DIRECT )on 04-08-2022 BILI, CONJUGATED 0.1 mg/dL Normal 0.0-0.2 [facility] Comment on above: Performed By: #### U JUVE, LIPID, MG, CMP, DBIL, PHOS #### [facility] [address] [place] [address] Dr. Sarmad Patino CBC AUTO DIFFon 04-08-2022 BASO # 0.0 103/ul Normal 0.0-0.1 [facility] Comment on above: Performed By: #### D DAVIDSON, MG, PHOS, CMP, LIPID, URIC #### [facility] [address] [place] [address] Dr. Sarmad Patino Basophils/100 WBC (Bld) 0.3 % Normal 0.2-2.0 [facility] Comment on above: Performed By: #### D DAVIDSON, MG, PHOS, CMP, LIPID, URIC #### [facility] [address] [place] [address] Dr. Sarmad Patino EO # 0.1 103/ul Normal 0.0-0.7 [facility] Comment on above: Performed By: #### D DAVIDSON, MG, PHOS, CMP, LIPID, URIC #### [facility] [address] [place] [address] Dr. Sarmad Patino Eosinophils/100 WBC (Bld) 1.4 % Normal 0.9-7.0 [facility] Comment on above: Performed By: #### D DAVIDSON, MG, PHOS, CMP, LIPID, URIC #### [facility] [address] [place] [address] Dr. Sarmad Patino Erythrocyte distribution width (RBC) [Ratio] 15.8 % Critically high 11.0-15.0 [facility] Comment on above: Performed By: #### D DAVIDSON, MG, PHOS, CMP, LIPID, URIC #### [facility] [address] [place] [address] Dr. Sarmad Patino Hematocrit (Bld) [Volume fraction] 43.0 % Normal 36.0-48.0 [facility] Comment on above: Performed By: #### D DAVIDSON, MG, PHOS, CMP, LIPID, URIC #### [facility] [address] [place] [address] Dr. Sarmad Patino Hemoglobin (Bld) [Mass/Vol] 15.0 g/dL Normal 12.0-16.0 [facility] Comment on above: Performed By: #### D DAVIDSON, MG, PHOS, CMP, LIPID, URIC #### [facility] [address] [place] [address] Dr. Sarmad Patino IG # 0.01 10e3/ul Normal 0.00-0.03 [facility] Comment on above: Performed By: #### D DAVIDSON, MG, PHOS, CMP, LIPID, URIC #### [facility] [address] [place] [address] Dr. Sarmad Patino IG % 0.1 % Normal 0.0-0.5 [facility] Comment on above: Performed By: #### D DAVIDSON, MG, PHOS, CMP, LIPID, URIC #### [facility] [address] [place] [address] Dr. Sarmad Patino LYMPH # 1.3 103/ul Normal 1.2-3.8 [facility] Comment on above: Performed By: #### D DAVIDSON, MG, PHOS, CMP, LIPID, URIC #### [facility] [address] [place] [address] Dr. Sarmad Patino Lymphocytes/100 WBC (Bld) 18.3 % Critically low 20.5-60.0 [facility] Comment on above: Performed By: #### D DAVIDSON, MG, PHOS, CMP, LIPID, URIC #### [facility] [address] [place] [address] Dr. Sarmad Patino MANUAL DIFF REQ NO Normal [facility] Comment on above: Performed By: #### D DAVIDSON, MG, PHOS, CMP, LIPID, URIC #### [facility] [address] [place] [address] Dr. Sarmad Patino MCH (RBC) [Entitic mass] 29.7 pg Normal 26.7-34.0 [facility] Comment on above: Performed By: #### D DAVIDSON, MG, PHOS, CMP, LIPID, URIC #### [facility] [address] [place] [address] Dr. Sarmad Patino MCHC (RBC) [Mass/Vol] 34.9 g/dL Normal 29.9-35.2 [facility] Comment on above: Performed By: #### D DAVIDSON, MG, PHOS, CMP, LIPID, URIC #### [facility] [address] [place] [address] Dr. Sarmad Patino MCV (RBC) [Entitic vol] 85.1 fL Normal 81.0-99.0 [facility] Comment on above: Performed By: #### D DAVIDSON, MG, PHOS, CMP, LIPID, URIC #### [facility] [address] [place] [address] Dr. Sarmad Patino MONO # 0.7 103/ul Normal 0.3-0.8 [facility] Comment on above: Performed By: #### D DAVIDSON, MG, PHOS, CMP, LIPID, URIC #### [facility] [address] [place] [address] Dr. Sarmad Patino Monocytes/100 WBC (Bld) 9.8 % Normal 1.7-12.0 [facility] Comment on above: Performed By: #### D DAVIDSON, MG, PHOS, CMP, LIPID, URIC #### [facility] [address] [place] [address] Dr. Sarmad Patino NEUT # 5.1 103/ul Normal 1.4-6.5 [facility] Comment on above: Performed By: #### D DAVIDSON, MG, PHOS, CMP, LIPID, URIC #### [facility] [address] [place] [address] Dr. Sarmad Patino Neutrophils/100 WBC (Bld) 70.1 % Normal 43.0-75.0 [facility] Comment on above: Performed By: #### D DAVIDSON, MG, PHOS, CMP, LIPID, URIC #### [facility] [address] [place] [address] Dr. Sarmad Patino Platelet mean volume (Bld) [Entitic vol] 10.4 fL Normal 9.5-13.5 [facility] Comment on above: Performed By: #### D DAVIDSON, MG, PHOS, CMP, LIPID, URIC #### [facility] [address] [place] [address] Dr. Sarmad Patino PLT 229 103/ul Normal 150-450 [facility] Comment on above: Performed By: #### D DAVIDSON, MG, PHOS, CMP, LIPID, URIC #### [facility] [address] [place] [address] Dr. Sarmad Patino RBC 5.05 106/ul Normal 4.20-5.40 [facility] Comment on above: Performed By: #### D DAVIDSON, MG, PHOS, CMP, LIPID, URIC #### [facility] [address] [place] [address] Dr. Sarmad Patino WBC 7.2 103/ul Normal 4.0-11.0 [facility] Comment on above: Performed By: #### D DAVIDSON, MG, PHOS, CMP, LIPID, URIC #### [facility] [address] [place] [address] Dr. Sarmad Patino LIPID PROFILEon 04-08-2022 CHOL-HDL RATIO NORM SEE BELOW Normal [facility] Comment on above: Result Comment: 3.3 - 4.4 LOW RISK 4.4 - 7.1 AVERAGE RISK 7.1 - 11.0 MODERATE RISK >11.0 HIGH RISK Performed By: #### U JUVE, LIPID, MG, CMP, DBIL, PHOS #### [facility] [address] [address] [address] Sarmad Patino Cholesterol [Mass/Vol] 134 mg/dL Normal <=200 [facility] Comment on above: Performed By: #### U JUVE, LIPID, MG, CMP, DBIL, PHOS #### [facility] [address] [address] [address] Sarmad Patino Cholesterol in HDL [Mass/Vol] 55 mg/dL Normal 40-60 [facility] Comment on above: Performed By: #### U JUVE, LIPID, MG, CMP, DBIL, PHOS #### [facility] [address] [address] [address] Sarmad Patino Cholesterol in LDL [Mass/Vol] 56.6 mg/dL Normal [facility] Comment on above: Performed By: #### U JUVE, LIPID, MG, CMP, DBIL, PHOS #### [facility] [address] [address] [address] Sarmad Patino Cholesterol.total/Cho lesterol in HDL [Mass ratio] 2.4 {ratio} Normal [facility] Comment on above: Performed By: #### U JUVE, LIPID, MG, CMP, DBIL, PHOS #### [facility] [address] [address] [address] Sarmad Patino HDL NORMAL > or = 60 mg/dl - LO W CARDIOVASCULAR RISK <40 mg/dl - HIGH CARDIOVASCULAR RISK Normal [facility] Comment on above: Performed By: #### U JUVE, LIPID, MG, CMP, DBIL, PHOS #### [facility] [address] [address] [address] Sarmad Patino LDL CALC NORMAL SEE BELOW Normal [facility] Comment on above: Result Comment: <100 mg/dl OPTIMAL 100 - 129 mg/dl NEAR OR ABOVE OPTIMAL 130 - 159 mg/dl BORDERLINE HIGH 160 - 189 mg/dl HIGH >190 mg/dl VERY HIGH Performed By: #### U JUVE, LIPID, MG, CMP, DBIL, PHOS #### [facility] [address] [place] [address] Dr. Sarmad Patino Triglyceride [Mass/Vol] 112 mg/dL Normal <=150 [facility] Comment on above: Performed By: #### U JUVE, LIPID, MG, CMP, DBIL, PHOS #### [facility] [address] [place] [address] Dr. Sarmad Patino VLDL CALC 22.4 mg/dL Normal [facility] Comment on above: Performed By: #### U JUVE, LIPID, MG, CMP, DBIL, PHOS #### [facility] [address] [place] [address] Dr. Sarmad Patino MAGNESIUMon 04-08-2022 Magnesium [Mass/Vol] 1.8 mg/dL Normal 1.8-2.4 [facility] Comment on above: Performed By: #### U JUVE, LIPID, MG, CMP, DBIL, PHOS #### [facility] [address] [place] [address] Dr. Sarmad Patino PHOSPHORUSon 04-08-2022 Phosphate [Mass/Vol] 3.9 mg/dL Normal 2.6-4.7 [facility] Comment on above: Performed By: #### U JUVE, LIPID, MG, CMP, DBIL, PHOS #### [facility] [address] [place] [address] Dr. Sarmad Patino PROF 14(COMP METB)on 023 Albumin [Mass/Vol] 4.0 g/dL Normal 3.4-5.0 [facility] Comment on above: Performed By: #### U JUVE, LIPID, MG, CMP, DBIL, PHOS #### [facility] [address] [place] [address] Dr. Sarmad Patino Albumin/Globulin [Mass ratio] 1.3 {ratio} Normal [facility] Comment on above: Performed By: #### U JUVE, LIPID, MG, CMP, DBIL, PHOS #### [facility] [address] [place] [address] Dr. Sarmad Patino ALP [Catalytic activity/Vol] 108 U/L Normal 46-116 [facility] Comment on above: Performed By: #### U JUVE, LIPID, MG, CMP, DBIL, PHOS #### [facility] [address] [place] [address] Dr. Sarmad Patino ALT [Catalytic activity/Vol] 15 U/L Normal 14-59 [facility] Comment on above: Performed By: #### U JUVE, LIPID, MG, CMP, DBIL, PHOS #### [facility] [address] [address] [address] Sarmad Patino Anion gap [Moles/Vol] 14.3 mmol/L Normal [facility] Comment on above: Performed By: #### U JUVE, LIPID, MG, CMP, DBIL, PHOS #### [facility] [address] [place] [address] Dr. Sarmad Patino AST [Catalytic activity/Vol] 15 U/L Normal 15-37 [facility] Comment on above: Performed By: #### U JUVE, LIPID, MG, CMP, DBIL, PHOS #### [facility] [address] [place] [address] Dr. Sarmad Patino Bilirubin [Mass/Vol] 0.5 mg/dL Normal 0.2-1.0 [facility] Comment on above: Performed By: #### U JUVE, LIPID, MG, CMP, DBIL, PHOS #### [facility] [address] [place] [address] Dr. Sarmad Patino Calcium [Mass/Vol] 9.7 mg/dL Normal 8.5-10.1 [facility] Comment on above: Performed By: #### U JUVE, LIPID, MG, CMP, DBIL, PHOS #### [facility] [address] [place] [address] Dr. Sarmad Patino Chloride [Moles/Vol] 105 mmol/L Normal 98-107 [facility] Comment on above: Performed By: #### U JUVE, LIPID, MG, CMP, DBIL, PHOS #### [facility] [address] [place] [address] Dr. Sarmad Patino CO2 [Moles/Vol] 26.6 mmol/L Normal 21.0-32.0 [facility] Comment on above: Performed By: #### U JUVE, LIPID, MG, CMP, DBIL, PHOS #### [facility] [address] [place] [address] Dr. Sarmad Patino Creatinine [Mass/Vol] 0.80 mg/dL Normal 0.55-1.02 [facility] Comment on above: Performed By: #### U JUVE, LIPID, MG, CMP, DBIL, PHOS #### [facility] [address] [place] [address] Dr. Sarmad Patino EGFR-AF CZECH >60 Normal >=60 [facility] Comment on above: Performed By: #### U JUVE, LIPID, MG, CMP, DBIL, PHOS #### [facility] [address] [place] [address] Dr. Sarmad Patino EGFR-NON AF CZECH >60 Normal >=60 [facility] Comment on above: Performed By: #### U JUVE, LIPID, MG, CMP, DBIL, PHOS #### [facility] [address] [place] [address] Dr. Sarmad Patino Globulin (S) [Mass/Vol] 3.0 g/dL Normal [facility] Comment on above: Performed By: #### U JUVE, LIPID, MG, CMP, DBIL, PHOS #### [facility] [address] [place] [address] Dr. Sarmad Patino Glucose [Mass/Vol] 99 mg/dL Normal 74-106 [facility] Comment on above: Performed By: #### U JUVE, LIPID, MG, CMP, DBIL, PHOS #### [facility] [address] [place] [address] Dr. Sarmad Patino Potassium [Moles/Vol] 3.9 mmol/L Normal 3.5-5.1 [facility] Comment on above: Performed By: #### U JUVE, LIPID, MG, CMP, DBIL, PHOS #### [facility] [address] [address] [address] Sarmad Patino Protein [Mass/Vol] 7.0 g/dL Normal 6.4-8.2 [facility] Comment on above: Performed By: #### U JUVE, LIPID, MG, CMP, DBIL, PHOS #### [facility] [address] [address] [address] Sarmad Patino Sodium [Moles/Vol] 142 mmol/L Normal 136-145 [facility] Comment on above: Performed By: #### U JUVE, LIPID, MG, CMP, DBIL, PHOS #### [facility] [address] [place] [address] Dr. Sarmad Patino Urea nitrogen [Mass/Vol] 14.0 mg/dL Normal 7.0-18.0 [facility] Comment on above: Performed By: #### U JUVE, LIPID, MG, CMP, DBIL, PHOS #### [facility] [address] [place] [address] Dr. Sarmad Patino Urea nitrogen/Creatinine [Mass ratio] 17.5 mg/mg Normal [facility] Comment on above: Performed By: #### U JUVE, LIPID, MG, CMP, DBIL, PHOS #### [facility] [address] [place] [address] Dr. Sarmad Patino URIC ACID SERUMon 04-08-2022 Urate [Mass/Vol] 5.2 mg/dL Normal 2.6-6.0 [facility] Comment on above: Performed By: #### U JUVE, LIPID, MG, CMP, DBIL, PHOS #### [facility] [address] [place] [address] Dr. Sarmad Patino BK VIRUS PCR QUANTon 022 BKV DNA QUANT PCR PLASMA Negative Normal Negative [facility] Comment on above: Result Comment: No B K DNA detected. . The linear range of the assay is 22 - 100,000,000 IU/mL. Performed By: #### D DAVIDSON, MG, PHOS, CMP, LIPID, URIC #### [facility] [address] [place] [address] Dr. Sarmad Patino Log10 BKV DNA Plasma Normal [facility] Comment on above: Performed By: #### D DAVIDSON, MG, PHOS, CMP, LIPID, URIC #### [facility] [address] [place] [address] Dr. Sarmad Patino FK506 (TACROLIMUS) WHOLE BLO ODon 03-13-2022 Tacrolimus (FK506), Blood 5.0 ng/mL Normal 2.0-20.0 [facility] Comment on above: Result Comment: Trou gh (immediately following transplant) 15.0 . Trough (steady state, 2 weeks or more after transplant): 3.0 - 8.0 . Performed by LC-MS/MS technology. Performed By: #### D DAVIDSON, MG, PHOS, CMP, LIPID, URIC #### [facility] [address] [place] [address] Dr. Sarmad Patino GLYCOHEMOGLOBIN A1Con 2021 ADA RECOMMENDATION SEE BELOW Normal [facility] Comment on above: Result Comment: ADA RECOMMENDED LIMIT 4.0 - 6.0 ADA THERAPEUTIC TARGET < 7.0 ACTION SUGGESTED > 7.0 Performed By: #### D DAVIDSON, MG, PHOS, CMP, LIPID, URIC #### [facility] [address] [place] [address] Dr. Sarmad Patino Glucose [Mass/Vol] 111 mg/dL Normal [facility] Comment on above: Performed By: #### D DAVIDSON, MG, PHOS, CMP, LIPID, URIC #### [facility] [address] [place] [address] Dr. Sarmad Patino HbA1c (Bld) [Mass fraction] 5.5 % Normal 4.5-6.2 [facility] Comment on above: Performed By: #### D DAVIDSON, MG, PHOS, CMP, LIPID, URIC #### [facility] [address] [place] [address] Dr. Sarmad Patino LIVER PROFILEon 03-11-2022 Albumin [Mass/Vol] 3.7 g/dL Normal 3.4-5.0 [facility] Comment on above: Performed By: #### D DAVIDSON, MG, PHOS, CMP, LIPID, URIC #### [facility] [address] [place] [address] Dr. Sarmad Patino Albumin/Globulin [Mass ratio] 1.1 {ratio} Normal [facility] Comment on above: Performed By: #### D DAVIDSON, MG, PHOS, CMP, LIPID, URIC #### [facility] [address] [place] [address] Dr. Sarmad Patino ALP [Catalytic activity/Vol] 124 U/L Critically high 46-116 [facility] Comment on above: Performed By: #### D DAVIDSON, MG, PHOS, CMP, LIPID, URIC #### [facility] [address] [place] [address] Dr. Sarmad Patino ALT [Catalytic activity/Vol] 17 U/L Normal 14-59 [facility] Comment on above: Performed By: #### D DAVIDSON, MG, PHOS, CMP, LIPID, URIC #### [facility] [address] [place] [address] Dr. Sarmad Patino AST [Catalytic activity/Vol] 16 U/L Normal 15-37 [facility] Comment on above: Performed By: #### D DAVIDSON, MG, PHOS, CMP, LIPID, URIC #### [facility] [address] [place] [address] Dr. Sarmad Patino BILI, CONJUGATED 0.2 mg/dL Normal 0.0-0.2 [facility] Comment on above: Performed By: #### D DAVIDSON, MG, PHOS, CMP, LIPID, URIC #### [facility] [address] [place] [address] Dr. Sarmad Patino Bilirubin [Mass/Vol] 0.6 mg/dL Normal 0.2-1.0 [facility] Comment on above: Performed By: #### D DAVIDSON, MG, PHOS, CMP, LIPID, URIC #### [facility] [facility] [address] [place] [address] Dr. Sarmad Patino Globulin (S) [Mass/Vol] 3.4 g/dL Normal [facility] Comment on above: Performed By: #### D DAVIDSON, MG, PHOS, CMP, LIPID, URIC #### [facility] [address] [address] [address] Sarmad Patino Protein [Mass/Vol] 7.1 g/dL Normal 6.4-8.2 [facility] Comment on above: Performed By: #### D DAVIDSON, MG, PHOS, CMP, LIPID, URIC #### [facility] [address] [address] [address] Sarmad Patino MAGNESIUMon 03-11-2022 Magnesium [Mass/Vol] 1.6 mg/dL Critically low 1.8-2.4 [facility] Comment on above: Performed By: #### D DAVIDSON, MG, PHOS, CMP, LIPID, URIC #### [facility] [address] [place] [address] Dr. Sarmad Patino PHOSPHORUSon 03-11-2022 Phosphate [Mass/Vol] 3.5 mg/dL Normal 2.6-4.7 [facility] Comment on above: Performed By: #### D DAVIDSON, MG, PHOS, CMP, LIPID, URIC #### [facility] [address] [place] [address] Dr. Sarmad Patino URIC ACID SERUMon 03-11-2022 Urate [Mass/Vol] 5.3 mg/dL Normal 2.6-6.0 [facility] Comment on above: Performed By: #### D DAVIDSON, MG, PHOS, CMP, LIPID, URIC #### [facility] [address] [place] [address] Dr. Sarmad Patino MYCOPHENOLIC ACIDon 02-19-20 Mycophenolic Acid 1.5 ug/mL Normal 1.0-3.5 [facility] [place] Comment on above: Performed By: #### D DAVIDSON, MG, PHOS, CMP, LIPID, URIC #### [facility] [address] [place] [address] Dr. Sarmad Patino Mycophenolic Acid Glucuronide 32 ug/mL Normal 15-125 [facility] Comment on above: Result Comment: [facility] 's Reference Range: 35-100 mcg/mL. Performed By: #### D DAVIDSON, MG, PHOS, CMP, LIPID, URIC #### [facility] [address] [place] [address] Dr. Sarmad Patino BK VIRUS PCR QUANTon 022 BKV DNA QUANT PCR PLASMA Negative Normal Negative [facility] Comment on above: Result Comment: No B K DNA detected. . The linear range of the assay is 22 - 100,000,000 IU/mL. Performed By: #### D DAVIDSON, MG, PHOS, CMP, LIPID, URIC #### [facility] [address] [place] [address] Dr. Sarmad Patino Log10 BKV DNA Plasma Normal [facility] Comment on above: Performed By: #### D DAVIDSON, MG, PHOS, CMP, LIPID, URIC #### [facility] [address] [place] [address] Dr. Sarmad Patino FK506 (TACROLIMUS) WHOLE BLO ODon 02-11-2022 Tacrolimus (FK506), Blood 4.4 ng/mL Normal 2.0-20.0 [facility] Comment on above: Result Comment: Trou gh (immediately following transplant) 15.0 . Trough (steady state, 2 weeks or more after transplant): 3.0 - 8.0 . Performed by LC-MS/MS technology. Performed By: #### U JUVE, LIPID, MG, CMP, DBIL, PHOS #### [facility] [address] [place] [address] Dr. Sarmad Patino BILIRUBIN CONJUGATED (DIRECT )on 02-08-2022 BILI, CONJUGATED 0.1 mg/dL Normal 0.0-0.2 [facility] Comment on above: Performed By: #### D DAVIDSON, MG, PHOS, CMP, LIPID, URIC #### [facility] [address] [place] [address] Dr. Sarmad Patino CBC AUTO DIFFon 02-08-2022 BASO # 0.0 103/ul Normal 0.0-0.1 [facility] Comment on above: Performed By: #### D DAVIDSON, MG, PHOS, CMP, LIPID, URIC #### [facility] [address] [place] [address] Dr. Sarmad Patino Basophils/100 WBC (Bld) 0.3 % Normal 0.2-2.0 [facility] Comment on above: Performed By: #### D DAVIDSON, MG, PHOS, CMP, LIPID, URIC #### [facility] [address] [address] [address] Sarmad Patino EO # 0.1 103/ul Normal 0.0-0.7 [facility] Comment on above: Performed By: #### D DAVIDSON, MG, PHOS, CMP, LIPID, URIC #### [facility] [address] [place] [address] Dr. Sarmad Patino Eosinophils/100 WBC (Bld) 1.0 % Normal 0.9-7.0 [facility] Comment on above: Performed By: #### D DAVIDSON, MG, PHOS, CMP, LIPID, URIC #### [facility] [address] [place] [address] Dr. Sarmad Patino Erythrocyte distribution width (RBC) [Ratio] 15.9 % Critically high 11.0-15.0 [facility] Comment on above: Performed By: #### D DAVIDSON, MG, PHOS, CMP, LIPID, URIC #### [facility] [address] [place] [address] Dr. Sarmad Patino Hematocrit (Bld) [Volume fraction] 42.2 % Normal 36.0-48.0 [facility] Comment on above: Performed By: #### D DAVIDSON, MG, PHOS, CMP, LIPID, URIC #### [facility] [address] [place] [address] Dr. Sarmad Patino Hemoglobin (Bld) [Mass/Vol] 13.8 g/dL Normal 12.0-16.0 [facility] Comment on above: Performed By: #### D DAVIDSON, MG, PHOS, CMP, LIPID, URIC #### [facility] [address] [place] [address] Dr. Sarmad Patino IG # 0.10 10e3/ul Critically high 0.00-0.03 [facility] [place] Comment on above: Performed By: #### D DAVIDSON, MG, PHOS, CMP, LIPID, URIC #### [facility] [address] [place] [address] Dr. Sarmad Patino IG % 1.1 % Critically high 0.0-0.5 [facility] Comment on above: Performed By: #### D DAVIDSON, MG, PHOS, CMP, LIPID, URIC #### [facility] [address] [place] [address] Dr. Sarmad Patino LYMPH # 1.2 103/ul Normal 1.2-3.8 [facility] Comment on above: Performed By: #### D DAVIDSON, MG, PHOS, CMP, LIPID, URIC #### [facility] [address] [place] [address] Dr. Sarmad Patino Lymphocytes/100 WBC (Bld) 12.6 % Critically low 20.5-60.0 [facility] Comment on above: Performed By: #### D DAVIDSON, MG, PHOS, CMP, LIPID, URIC #### [facility] [address] [place] [address] Dr. Sarmad Patino MANUAL DIFF REQ NO Normal [facility] Comment on above: Performed By: #### D DAVIDSON, MG, PHOS, CMP, LIPID, URIC #### [facility] [address] [place] [address] Dr. Sarmad Patino MCH (RBC) [Entitic mass] 28.3 pg Normal 26.7-34.0 [facility] Comment on above: Performed By: #### D DAVIDSON, MG, PHOS, CMP, LIPID, URIC #### [facility] [address] [place] [address] Dr. Sarmad Patino MCHC (RBC) [Mass/Vol] 32.7 g/dL Normal 29.9-35.2 [facility] Comment on above: Performed By: #### D DAVIDSON, MG, PHOS, CMP, LIPID, URIC #### [facility] [address] [place] [address] Dr. Sarmad Patino MCV (RBC) [Entitic vol] 86.7 fL Normal 81.0-99.0 [facility] Comment on above: Performed By: #### D DAVIDSON, MG, PHOS, CMP, LIPID, URIC #### [facility] [address] [place] [address] Dr. Sarmad Patino MONO # 1.0 103/ul Critically high 0.3-0.8 [facility] Comment on above: Performed By: #### D DAVIDSON, MG, PHOS, CMP, LIPID, URIC #### [facility] [address] [place] [address] Dr. Sarmad Patino Monocytes/100 WBC (Bld) 10.7 % Normal 1.7-12.0 [facility] Comment on above: Performed By: #### D DAVIDSON, MG, PHOS, CMP, LIPID, URIC #### [facility] [address] [place] [address] Dr. Sarmad Patino NEUT # 6.9 103/ul Critically high 1.4-6.5 [facility] Comment on above: Performed By: #### D DAVIDSON, MG, PHOS, CMP, LIPID, URIC #### [facility] [address] [place] [address] Dr. Sarmad Patino Neutrophils/100 WBC (Bld) 74.3 % Normal 43.0-75.0 [facility] Comment on above: Performed By: #### D DAVIDSON, MG, PHOS, CMP, LIPID, URIC #### [facility] [address] [place] [address] Dr. Sarmad Patino Platelet mean volume (Bld) [Entitic vol] 11.1 fL Normal 9.5-13.5 [facility] Comment on above: Performed By: #### D DAVIDSON, MG, PHOS, CMP, LIPID, URIC #### [facility] [address] [place] [address] Dr. Sarmad Patino PLT 307 103/ul Normal 150-450 [facility] Comment on above: Performed By: #### D DAVIDSON, MG, PHOS, CMP, LIPID, URIC #### [facility] [address] [place] [address] Dr. Sarmad Patino RBC 4.87 106/ul Normal 4.20-5.40 [facility] Comment on above: Performed By: #### D DAVIDSON, MG, PHOS, CMP, LIPID, URIC #### [facility] [address] [place] [address] Dr. Sarmad Patino WBC 9.3 103/ul Normal 4.0-11.0 [facility] Comment on above: Performed By: #### D DAVIDSON, MG, PHOS, CMP, LIPID, URIC #### [facility] [address] [address] [address] Sarmad Patino GLYCOHEMOGLOBIN A1Con 2021 ADA RECOMMENDATION SEE BELOW Normal [facility] Comment on above: Result Comment: ADA RECOMMENDED LIMIT 4.0 - 6.0 ADA THERAPEUTIC TARGET < 7.0 ACTION SUGGESTED > 7.0 Performed By: #### D DAVIDSON, MG, PHOS, CMP, LIPID, URIC #### [facility] [address] [address] [address] Sarmad Patino Glucose [Mass/Vol] 134 mg/dL Normal [facility] Comment on above: Performed By: #### D DAVIDSON, MG, PHOS, CMP, LIPID, URIC #### [facility] [address] [address] [address] Sarmad Patino HbA1c (Bld) [Mass fraction] 6.3 % Critically high 4.5-6.2 [facility] Comment on above: Performed By: #### D DAVIDSON, MG, PHOS, CMP, LIPID, URIC #### [facility] [address] [address] [address] Sarmad Patino LIPID PROFILEon 02-08-2022 CHOL-HDL RATIO NORM SEE BELOW Normal [facility] Comment on above: Result Comment: 3.3 - 4.4 LOW RISK 4.4 - 7.1 AVERAGE RISK 7.1 - 11.0 MODERATE RISK >11.0 HIGH RISK Performed By: #### D DAVIDSON, MG, PHOS, CMP, LIPID, URIC #### [facility] [address] [address] [address] Sarmad Patino Cholesterol [Mass/Vol] 180 mg/dL Normal <=200 [facility] Comment on above: Performed By: #### D DAVIDSON, MG, PHOS, CMP, LIPID, URIC #### [facility] [address] [address] [address] Sarmad Patino Cholesterol in HDL [Mass/Vol] 58 mg/dL Normal 40-60 [facility] Comment on above: Performed By: #### D DAVIDSON, MG, PHOS, CMP, LIPID, URIC #### [facility] [address] [address] [address] Sarmad Patino Cholesterol in LDL [Mass/Vol] 86.6 mg/dL Normal [facility] Comment on above: Performed By: #### D DAVIDSON, MG, PHOS, CMP, LIPID, URIC #### [facility] [address] [address] [address] Sarmad Patino Cholesterol.total/Cho lesterol in HDL [Mass ratio] 3.1 {ratio} Normal [facility] Comment on above: Performed By: #### D DAVIDSON, MG, PHOS, CMP, LIPID, URIC #### [facility] [address] [place] [address] Dr. Sarmad Patino HDL NORMAL > or = 60 mg/dl - LO W CARDIOVASCULAR RISK <40 mg/dl - HIGH CARDIOVASCULAR RISK Normal [facility] Comment on above: Performed By: #### D DAVIDSON, MG, PHOS, CMP, LIPID, URIC #### [facility] [address] [address] [address] Sarmad Patino LDL CALC NORMAL SEE BELOW Normal [facility] Comment on above: Result Comment: <100 mg/dl OPTIMAL 100 - 129 mg/dl NEAR OR ABOVE OPTIMAL 130 - 159 mg/dl BORDERLINE HIGH 160 - 189 mg/dl HIGH >190 mg/dl VERY HIGH Performed By: #### D DAVIDSON, MG, PHOS, CMP, LIPID, URIC #### [facility] [address] [address] [address] Sarmad Patino Triglyceride [Mass/Vol] 177 mg/dL Critically high <=150 [facility] Comment on above: Performed By: #### D DAVIDSON, MG, PHOS, CMP, LIPID, URIC #### [facility] [address] [address] [address] Sarmad Patino VLDL CALC 35.4 mg/dL Normal [facility] Comment on above: Performed By: #### D DAVIDSON, MG, PHOS, CMP, LIPID, URIC #### [facility] [address] [address] [address] Sarmad Patino MAGNESIUMon 02-08-2022 Magnesium [Mass/Vol] 1.8 mg/dL Normal 1.8-2.4 [facility] Comment on above: Performed By: #### D DAVIDSON, MG, PHOS, CMP, LIPID, URIC #### [facility] [address] [address] [address] Sarmad Patino PHOSPHORUSon 02-08-2022 Phosphate [Mass/Vol] 3.3 mg/dL Normal 2.6-4.7 [facility] Comment on above: Performed By: #### D DAVIDSON, MG, PHOS, CMP, LIPID, URIC #### [facility] [address] [address] [address] Sarmad Patino PROF 14(COMP METB)on 022 Albumin [Mass/Vol] 3.8 g/dL Normal 3.4-5.0 [facility] Comment on above: Performed By: #### D DAVIDSON, MG, PHOS, CMP, LIPID, URIC #### [facility] [address] [place] [address] Dr. Sarmad Patino Albumin/Globulin [Mass ratio] 1.3 {ratio} Normal [facility] Comment on above: Performed By: #### D DAVIDSON, MG, PHOS, CMP, LIPID, URIC #### [facility] [address] [place] [address] Dr. Sarmad Patino ALP [Catalytic activity/Vol] 144 U/L Critically high 46-116 [facility] Comment on above: Performed By: #### D DAVIDSON, MG, PHOS, CMP, LIPID, URIC #### [facility] [address] [address] [address] Sarmad Patino ALT [Catalytic activity/Vol] 24 U/L Normal 14-59 [facility] Comment on above: Performed By: #### D DAVIDSON, MG, PHOS, CMP, LIPID, URIC #### [facility] [address] [address] [address] Sarmad Patino Anion gap [Moles/Vol] 13.7 mmol/L Normal [facility] Comment on above: Performed By: #### D DAVIDSON, MG, PHOS, CMP, LIPID, URIC #### [facility] [address] [address] [address] Sarmad Patino AST [Catalytic activity/Vol] 19 U/L Normal 15-37 [facility] Comment on above: Performed By: #### D DAVIDSON, MG, PHOS, CMP, LIPID, URIC #### [facility] [address] [address] [address] Sarmad Patino Bilirubin [Mass/Vol] 0.5 mg/dL Normal 0.2-1.0 [facility] Comment on above: Performed By: #### D DAVIDSON, MG, PHOS, CMP, LIPID, URIC #### [facility] [address] [place] [address] Dr. Sarmad Patino Calcium [Mass/Vol] 9.6 mg/dL Normal 8.5-10.1 [facility] Comment on above: Performed By: #### D DAVIDSON, MG, PHOS, CMP, LIPID, URIC #### [facility] [address] [address] [address] Sarmad Patino Chloride [Moles/Vol] 103 mmol/L Normal 98-107 [facility] Comment on above: Performed By: #### D DAVIDSON, MG, PHOS, CMP, LIPID, URIC #### [facility] [address] [place] [address] Dr. Sarmad Patino CO2 [Moles/Vol] 26.6 mmol/L Normal 21.0-32.0 [facility] Comment on above: Performed By: #### D DAVIDSON, MG, PHOS, CMP, LIPID, URIC #### [facility] [address] [address] [address] Sarmad Patino Creatinine [Mass/Vol] 0.75 mg/dL Normal 0.55-1.02 [facility] Comment on above: Performed By: #### D DAVIDSON, MG, PHOS, CMP, LIPID, URIC #### [facility] [address] [place] [address] Dr. Sarmad Patino EGFR-AF CZECH >60 Normal >=60 [facility] Comment on above: Performed By: #### D DAVIDSON, MG, PHOS, CMP, LIPID, URIC #### [facility] [address] [address] [address] Sarmad Patino EGFR-NON AF CZECH >60 Normal >=60 [facility] Comment on above: Performed By: #### D DAVIDSON, MG, PHOS, CMP, LIPID, URIC #### [facility] [address] [address] [address] Sarmad Patino Globulin (S) [Mass/Vol] 3.0 g/dL Normal [facility] Comment on above: Performed By: #### D DAVIDSON, MG, PHOS, CMP, LIPID, URIC #### [facility] [address] [address] [address] Sarmad Patino Glucose [Mass/Vol] 99 mg/dL Normal 74-106 [facility] Comment on above: Performed By: #### D DAVIDSON, MG, PHOS, CMP, LIPID, URIC #### [facility] [address] [address] [address] Sarmad Patino Potassium [Moles/Vol] 4.3 mmol/L Normal 3.5-5.1 [facility] Comment on above: Performed By: #### D DAVIDSON, MG, PHOS, CMP, LIPID, URIC #### [facility] [address] [address] [address] Sarmad Patino Protein [Mass/Vol] 6.8 g/dL Normal 6.4-8.2 [facility] Comment on above: Performed By: #### D DAVIDSON, MG, PHOS, CMP, LIPID, URIC #### [facility] [address] [address] [address] Sarmad Patino Sodium [Moles/Vol] 139 mmol/L Normal 136-145 [facility] Comment on above: Performed By: #### D DAVIDSON, MG, PHOS, CMP, LIPID, URIC #### [facility] [address] [address] [address] Sarmad Patino Urea nitrogen [Mass/Vol] 16.0 mg/dL Normal 7.0-18.0 [facility] Comment on above: Performed By: #### D DAVIDSON, MG, PHOS, CMP, LIPID, URIC #### [facility] [address] [address] [address] Sarmad Patino Urea nitrogen/Creatinine [Mass ratio] 21.3 mg/mg Normal [facility] Comment on above: Performed By: #### D DAVIDSON, MG, PHOS, CMP, LIPID, URIC #### [facility] [address] [address] [address] Sarmad Patino URIC ACID SERUMon 02-08-2022 Urate [Mass/Vol] 5.4 mg/dL Normal 2.6-6.0 [facility] Comment on above: Performed By: #### D DAVIDSON, MG, PHOS, CMP, LIPID, URIC #### [facility] [address] [address] [address] Sarmad Patino BK VIRUS PCR QUANTon 022 BKV DNA QUANT PCR PLASMA 27 IU/mL Normal Negative [facility] Comment on above: Result Comment: The linear range of the assay is 22 - 100,000,000 IU/mL. Performed By: #### D DAVIDSON, MG, PHOS, CMP, LIPID, URIC #### [facility] [address] [address] [address] Sarmad Patino Log10 BKV DNA Plasma 1.431 log10 IU/mL Normal [facility] Comment on above: Performed By: #### D DAVIDSON, MG, PHOS, CMP, LIPID, URIC #### [facility] [address] [address] [address] Sarmad Patino FK506 (TACROLIMUS) WHOLE BLO ODon 01-30-2022 Tacrolimus (FK506), Blood 6.5 ng/mL Normal 2.0-20.0 [facility] Comment on above: Result Comment: Trou gh (immediately following transplant) 15.0 . Trough (steady state, 2 weeks or more after transplant): 3.0 - 8.0 . Performed by LC-MS/MS technology. Performed By: #### D DAVIDSON, MG, PHOS, CMP, LIPID, URIC #### [facility] [address] [address] [address] Sarmad Patino RAPAMUNE(SIROLIMUS)on 2021 Rapamune(Sirolimus), whole blood 9.9 ng/mL Normal 3.0-20.0 [facility] Comment on above: Result Comment: Perf ormed by LC/MS-MS technology . This test was developed and its performance characteristics determined by [facility]. It has not been cleared or approved by the Food and Drug Administration. Performed By: #### D DAVIDSON, MG, PHOS, CMP, LIPID, URIC #### [facility] [address] [place] [address] Dr. Sarmad Patino BILIRUBIN CONJUGATED (DIRECT )on 01-28-2022 BILI, CONJUGATED 0.1 mg/dL Normal 0.0-0.2 [facility] Comment on above: Performed By: #### D DAVIDSON, MG, PHOS, CMP, LIPID, URIC #### [facility] [address] [place] [address] Dr. Sarmad Patino CBC AUTO DIFFon 01-28-2022 BASO # 0.0 103/ul Normal 0.0-0.1 [facility] Comment on above: Performed By: #### D DAVIDSON, MG, PHOS, CMP, LIPID, URIC #### [facility] [address] [place] [address] Dr. Sarmad Patino Basophils/100 WBC (Bld) 0.3 % Normal 0.2-2.0 [facility] Comment on above: Performed By: #### D DAVIDSON, MG, PHOS, CMP, LIPID, URIC #### [facility] [address] [place] [address] Dr. Sarmad Patino EO # 0.2 103/ul Normal 0.0-0.7 [facility] Comment on above: Performed By: #### D DAVIDSON, MG, PHOS, CMP, LIPID, URIC #### [facility] [address] [place] [address] Dr. Sarmad Patino Eosinophils/100 WBC (Bld) 3.1 % Normal 0.9-7.0 [facility] Comment on above: Performed By: #### D DAVIDSON, MG, PHOS, CMP, LIPID, URIC #### [facility] [address] [place] [address] Dr. Sarmad Patino Erythrocyte distribution width (RBC) [Ratio] 15.4 % Critically high 11.0-15.0 [facility] Comment on above: Performed By: #### D DAVIDSON, MG, PHOS, CMP, LIPID, URIC #### [facility] [address] [place] [address] Dr. Sarmad Patino Hematocrit (Bld) [Volume fraction] 42.6 % Normal 36.0-48.0 [facility] Comment on above: Performed By: #### D DAVIDSON, MG, PHOS, CMP, LIPID, URIC #### [facility] [address] [place] [address] Dr. Sarmad Patino Hemoglobin (Bld) [Mass/Vol] 14.0 g/dL Normal 12.0-16.0 [facility] Comment on above: Performed By: #### D DAVIDSON, MG, PHOS, CMP, LIPID, URIC #### [facility] [address] [place] [address] Dr. Sarmad Patino IG # 0.05 10e3/ul Critically high 0.00-0.03 [facility] Comment on above: Performed By: #### D DAVIDSON, MG, PHOS, CMP, LIPID, URIC #### [facility] [address] [place] [address] Dr. Sarmad Patino IG % 0.7 % Critically high 0.0-0.5 [facility] Comment on above: Performed By: #### D DAVIDSON, MG, PHOS, CMP, LIPID, URIC #### [facility] [address] [place] [address] Dr. Sarmad Patino LYMPH # 1.1 103/ul Critically low 1.2-3.[address] [facility] Comment on above: Performed By: #### D DAVIDSON, MG, PHOS, CMP, LIPID, URIC #### [facility] [address] [place] [address] Dr. Sarmad Patino Lymphocytes/100 WBC (Bld) 15.8 % Critically low 20.5-60.0 [facility] Comment on above: Performed By: #### D DAVIDSON, MG, PHOS, CMP, LIPID, URIC #### [facility] [address] [place] [address] Dr. Sarmad Patino MANUAL DIFF REQ NO Normal [facility] Comment on above: Performed By: #### D DAVIDSON, MG, PHOS, CMP, LIPID, URIC #### [facility] [address] [place] [address] Dr. Sarmad Patino MCH (RBC) [Entitic mass] 28.3 pg Normal 26.7-34.0 [facility] Comment on above: Performed By: #### D DAVIDSON, MG, PHOS, CMP, LIPID, URIC #### [facility] [address] [place] [address] Dr. Sarmad Patino MCHC (RBC) [Mass/Vol] 32.9 g/dL Normal 29.9-35.2 [facility] Comment on above: Performed By: #### D DAVIDSON, MG, PHOS, CMP, LIPID, URIC #### [facility] [address] [place] [address] Dr. Sarmad Patino MCV (RBC) [Entitic vol] 86.2 fL Normal 81.0-99.0 [facility] Comment on above: Performed By: #### D DAVIDSON, MG, PHOS, CMP, LIPID, URIC #### [facility] [address] [place] [address] Dr. Sarmad Patino MONO # 0.8 103/ul Normal 0.3-0.8 [facility] Comment on above: Performed By: #### D DAVIDSON, MG, PHOS, CMP, LIPID, URIC #### [facility] [address] [place] [address] Dr. Sarmad Patino Monocytes/100 WBC (Bld) 11.0 % Normal 1.7-12.0 [facility] Comment on above: Performed By: #### D DAVIDSON, MG, PHOS, CMP, LIPID, URIC #### [facility] [address] [place] [address] Dr. Sarmad Patino NEUT # 4.8 103/ul Normal 1.4-6.5 [facility] Comment on above: Performed By: #### D DAVIDSON, MG, PHOS, CMP, LIPID, URIC #### [facility] [address] [address] [address] Sarmad Patino Neutrophils/100 WBC (Bld) 69.1 % Normal 43.0-75.0 [facility] Comment on above: Performed By: #### D DAVIDSON, MG, PHOS, CMP, LIPID, URIC #### [facility] [address] [address] [address] Sarmad Patino Platelet mean volume (Bld) [Entitic vol] 10.8 fL Normal 9.5-13.5 [facility] Comment on above: Performed By: #### D DAVIDSON, MG, PHOS, CMP, LIPID, URIC #### [facility] [address] [address] [address] Sarmad Patino PLT 208 103/ul Normal 150-450 [facility] Comment on above: Performed By: #### D DAVIDSON, MG, PHOS, CMP, LIPID, URIC #### [facility] [address] [address] [address] Sarmad Patino RBC 4.94 106/ul Normal 4.20-5.40 [facility] Comment on above: Performed By: #### D DAVIDSON, MG, PHOS, CMP, LIPID, URIC #### [facility] [address] [address] [address] Sarmad Patino WBC 7.0 103/ul Normal 4.0-11.0 [facility] Comment on above: Performed By: #### D DAVIDSON, MG, PHOS, CMP, LIPID, URIC #### [facility] [address] [place] [address] Dr. Sarmad Patino GLYCOHEMOGLOBIN A1Con 2021 ADA RECOMMENDATION SEE BELOW Normal [facility] Comment on above: Result Comment: ADA RECOMMENDED LIMIT 4.0 - 6.0 ADA THERAPEUTIC TARGET < 7.0 ACTION SUGGESTED > 7.0 Performed By: #### D DAVIDSON, MG, PHOS, CMP, LIPID, URIC #### [facility] [address] [place] [address] Dr. Sarmad Patino Glucose [Mass/Vol] 137 mg/dL Normal [facility] Comment on above: Performed By: #### D DAVIDSON, MG, PHOS, CMP, LIPID, URIC #### [facility] [address] [address] [address] Sarmad Patino HbA1c (Bld) [Mass fraction] 6.4 % Critically high 4.5-6.2 [facility] Comment on above: Performed By: #### D DAVIDSON, MG, PHOS, CMP, LIPID, URIC #### [facility] [address] [address] [address] Sarmad Patino LIPID PROFILEon 01-28-2022 CHOL-HDL RATIO NORM SEE BELOW Normal [facility] Comment on above: Result Comment: 3.3 - 4.4 LOW RISK 4.4 - 7.1 AVERAGE RISK 7.1 - 11.0 MODERATE RISK >11.0 HIGH RISK Performed By: #### D DAVIDSON, MG, PHOS, CMP, LIPID, URIC #### [facility] [address] [address] [address] Sarmad Patino Cholesterol [Mass/Vol] 209 mg/dL Critically high <=200 [facility] Comment on above: Performed By: #### D DAVIDSON, MG, PHOS, CMP, LIPID, URIC #### [facility] [address] [address] [address] Sarmad Patino Cholesterol in HDL [Mass/Vol] 59 mg/dL Normal 40-60 [facility] Comment on above: Performed By: #### D DAVIDSON, MG, PHOS, CMP, LIPID, URIC #### [facility] [address] [address] [address] Sarmad Patino Cholesterol in LDL [Mass/Vol] 100.4 mg/dL Normal [facility] Comment on above: Performed By: #### D DAVIDSON, MG, PHOS, CMP, LIPID, URIC #### [facility] [address] [place] [address] Dr. Sarmad Patino Cholesterol.total/Cho lesterol in HDL [Mass ratio] 3.5 {ratio} Normal [facility] Comment on above: Performed By: #### D DAVIDSON, MG, PHOS, CMP, LIPID, URIC #### [facility] [address] [place], [place] [address] Dr. Sarmad Patino HDL NORMAL > or = 60 mg/dl - LO W CARDIOVASCULAR RISK <40 mg/dl - HIGH CARDIOVASCULAR RISK Normal The [facility] Comment on above: Performed By: #### D DAVIDSON, MG, PHOS, CMP, LIPID, URIC #### [facility] [address] [address] [address] Sarmad Patino LDL CALC NORMAL SEE BELOW Normal [facility] Comment on above: Result Comment: <100 mg/dl OPTIMAL 100 - 129 mg/dl NEAR OR ABOVE OPTIMAL 130 - 159 mg/dl BORDERLINE HIGH 160 - 189 mg/dl HIGH >190 mg/dl VERY HIGH Performed By: #### D DAVIDSON, MG, PHOS, CMP, LIPID, URIC #### [facility] [address] [address] [address] Sarmad Patino Triglyceride [Mass/Vol] 248 mg/dL Critically high <=150 [facility] Comment on above: Performed By: #### D DAVIDSON, MG, PHOS, CMP, LIPID, URIC #### [facility] [address] [address] [address] Sarmad Patino VLDL CALC 49.6 mg/dL Normal The [facility] Comment on above: Performed By: #### D DAVIDSON, MG, PHOS, CMP, LIPID, URIC #### [facility] [address] [place] [address] Dr. Sarmad Patino MAGNESIUMon 01-28-2022 Magnesium [Mass/Vol] 1.6 mg/dL Critically low 1.8-2.4 [facility] Comment on above: Performed By: #### D DAVIDSON, MG, PHOS, CMP, LIPID, URIC #### [facility] [address] [address] [address] Sarmad Patino PHOSPHORUSon 01-28-2022 Phosphate [Mass/Vol] 2.7 mg/dL Normal 2.6-4.7 [facility] Comment on above: Performed By: #### D DAVIDSON, MG, PHOS, CMP, LIPID, URIC #### [facility] [address] [address] [address] Sarmad Patino PROF 14(COMP METB)on 022 Albumin [Mass/Vol] 3.3 g/dL Critically low 3.4-5.0 [facility] Comment on above: Performed By: #### D DAVIDSON, MG, PHOS, CMP, LIPID, URIC #### [facility] [address] [place] [address] Dr. Sarmad Patino Albumin/Globulin [Mass ratio] 0.9 {ratio} Normal [facility] Comment on above: Performed By: #### D DAVIDSON, MG, PHOS, CMP, LIPID, URIC #### [facility] [address] [place] [address] Dr. Sarmad Patino ALP [Catalytic activity/Vol] 124 U/L Critically high 46-116 [facility] Comment on above: Performed By: #### D DAVIDSON, MG, PHOS, CMP, LIPID, URIC #### [facility] [address] [place] [address] Dr. Sarmad Patino ALT [Catalytic activity/Vol] 28 U/L Normal 14-59 [facility] Comment on above: Performed By: #### D DAVIDSON, MG, PHOS, CMP, LIPID, URIC #### [facility] [address] [place] [address] Dr. Sarmad Patino Anion gap [Moles/Vol] 12.0 mmol/L Normal [facility] Comment on above: Performed By: #### D DAVIDSON, MG, PHOS, CMP, LIPID, URIC #### [facility] [address] [address] [address] Sarmad Patino AST [Catalytic activity/Vol] 20 U/L Normal 15-37 [facility] Comment on above: Performed By: #### D DAVIDSON, MG, PHOS, CMP, LIPID, URIC #### [facility] [address] [address] [address] Sarmad Patino Bilirubin [Mass/Vol] 0.5 mg/dL Normal 0.2-1.0 [facility] Comment on above: Performed By: #### D DAVIDSON, MG, PHOS, CMP, LIPID, URIC #### [facility] [address] [place] [address] Dr. Sarmad Patino Calcium [Mass/Vol] 9.1 mg/dL Normal 8.5-10.1 [facility] Comment on above: Performed By: #### D DAVIDSON, MG, PHOS, CMP, LIPID, URIC #### [facility] [address] [address] [address] Sarmad Patino Chloride [Moles/Vol] 104 mmol/L Normal 98-107 [facility] Comment on above: Performed By: #### D DAVIDSON, MG, PHOS, CMP, LIPID, URIC #### [facility] [address] [address] [address] Sarmad Patino CO2 [Moles/Vol] 25.7 mmol/L Normal 21.0-32.0 [facility] Comment on above: Performed By: #### D DAVIDSON, MG, PHOS, CMP, LIPID, URIC #### [facility] [address] [address] [address] Sarmad Patino Creatinine [Mass/Vol] 0.77 mg/dL Normal 0.55-1.02 [facility] Comment on above: Performed By: #### D DAVIDSON, MG, PHOS, CMP, LIPID, URIC #### [facility] [address] [address] [address] Sarmad Patino EGFR-AF CZECH >60 Normal >=60 [facility] Comment on above: Performed By: #### D DAVIDSON, MG, PHOS, CMP, LIPID, URIC #### [facility] [address] [address] [address] Sarmad Patino EGFR-NON AF CZECH >60 Normal >=60 [facility] Comment on above: Performed By: #### D DAVIDSON, MG, PHOS, CMP, LIPID, URIC #### [facility] [address] [address] [address] Sarmad Patino Globulin (S) [Mass/Vol] 3.7 g/dL Normal [facility] Comment on above: Performed By: #### D DAVIDSON, MG, PHOS, CMP, LIPID, URIC #### [facility] [address] [address] [address] Sarmad Patino Glucose [Mass/Vol] 108 mg/dL Critically high 74-106 [facility] Comment on above: Performed By: #### D DAVIDSON, MG, PHOS, CMP, LIPID, URIC #### [facility] [address] [place] [address] Dr. Sarmad Patino Potassium [Moles/Vol] 3.7 mmol/L Normal 3.5-5.1 [facility] Comment on above: Performed By: #### D DAVIDSON, MG, PHOS, CMP, LIPID, URIC #### [facility] [address] [place] [address] Dr. Sarmad Patino Protein [Mass/Vol] 7.0 g/dL Normal 6.4-8.2 [facility] Comment on above: Performed By: #### D DAVIDSON, MG, PHOS, CMP, LIPID, URIC #### [facility] [address] [place] [address] Dr. Sarmad Patino Sodium [Moles/Vol] 138 mmol/L Normal 136-145 [facility] Comment on above: Performed By: #### D DAVIDSON, MG, PHOS, CMP, LIPID, URIC #### [facility] [address] [place] [address] Dr. Sarmad Patino Urea nitrogen [Mass/Vol] 15.0 mg/dL Normal 7.0-18.0 [facility] Comment on above: Performed By: #### D DAVIDSON, MG, PHOS, CMP, LIPID, URIC #### [facility] [address] [place] [address] Dr. Sarmad Patino Urea nitrogen/Creatinine [Mass ratio] 19.5 mg/mg Normal [facility] Comment on above: Performed By: #### D DAVIDSON, MG, PHOS, CMP, LIPID, URIC #### [facility] [address] [address] [address] Sarmad Patino URIC ACID SERUMon 01-28-2022 Urate [Mass/Vol] 4.3 mg/dL Normal 2.6-6.0 [facility] Comment on above: Performed By: #### D DAVIDSON, MG, PHOS, CMP, LIPID, URIC #### [facility] [address] [place] [address] Dr. Sarmad Patino Quick Strepon 01-12-2022 S. pyogenes Org specific cx Ql (Throat) Negative [employer] Other Quick Strep [employer] Other XR CHEST 1 Von 01-07-2022 [...] BRITTON BERNARD Date: 2022-01-07 15:00 Normal [facility] CBC W MANUAL DIFFon 01-04-20 22 ATYPICAL LYMPH # 1.40 103/ul Normal [facility] Comment on above: Performed By: #### D DAVIDSON, MG, PHOS, CMP, LIPID, URIC #### [facility] [address] [address] [address] Sarmad Patino ATYPICAL LYMPH % 10 % Normal [facility] Comment on above: Performed By: #### D DAVIDSON, MG, PHOS, CMP, LIPID, URIC #### [facility] [address] [address] [address] Sarmad Patino BAND # 0.6 103/ul Critically high 0.0-0.3 [facility] Comment on above: Performed By: #### D DAVIDSON, MG, PHOS, CMP, LIPID, URIC #### [facility] [address] [address] [address] Sarmad Patino BAND % 4 % Normal 0-5 [facility] Comment on above: Performed By: #### D DAVIDSON, MG, PHOS, CMP, LIPID, URIC #### [facility] [address] [address] [address] Sarmad Patino BASOM # 0.00 103/ul Normal 0.00-0.10 [facility] Comment on above: Performed By: #### D DAVIDSON, MG, PHOS, CMP, LIPID, URIC #### [facility] [address] [address] [address] Sarmad Patino BASOM % 0.0 % Critically low 0.2-2.0 [facility] Comment on above: Performed By: #### D DAVIDSON, MG, PHOS, CMP, LIPID, URIC #### [facility] [address] [address] [address] Sarmad Patino BLAST # Normal [facility] Comment on above: Performed By: #### D DAVIDSON, MG, PHOS, CMP, LIPID, URIC #### [facility] [address] [place] [address] Dr. Sarmad Patino BLAST % Normal [facility] Comment on above: Performed By: #### D DAVIDSON, MG, PHOS, CMP, LIPID, URIC #### [facility] [address] [place] [address] Dr. Sarmad Patino CORRECTED WBC Normal 4.0-11.0 [facility] Comment on above: Performed By: #### D DAVIDSON, MG, PHOS, CMP, LIPID, URIC #### [facility] [address] [place] [address] Dr. Sarmad Patino EOS # 0.14 103/ul Normal 0.00-0.70 [facility] Comment on above: Performed By: #### D DAVIDSON, MG, PHOS, CMP, LIPID, URIC #### [facility] [address] [address] [address] Sarmad Patino EOS% 1.0 % Normal 0.9-7.0 [facility] Comment on above: Performed By: #### D DAVIDSON, MG, PHOS, CMP, LIPID, URIC #### [facility] [address] [address] [address] Sarmad Patino HCT 42.8 % Normal 36.0-48.0 [facility] Comment on above: Performed By: #### D DAVIDSON, MG, PHOS, CMP, LIPID, URIC #### [facility] [address] [address] [address] Sarmad Patino HGB 14.2 g/dl Normal 12.0-16.0 [facility] Comment on above: Performed By: #### D DAVIDSON, MG, PHOS, CMP, LIPID, URIC #### [facility] [address] [address] [address] Sarmad Patino LYMPHM # 0.00 103/ul Critically low 1.20-3.80 [facility] Comment on above: Performed By: #### D DAVIDSON, MG, PHOS, CMP, LIPID, URIC #### [facility] [address] [place] [address] Dr. Sarmad Patino LYMPHM% 0.0 % Critically low 20.5-60.0 [facility] Comment on above: Performed By: #### D DAVIDSON, MG, PHOS, CMP, LIPID, URIC #### [facility] [address] [place] [address] Dr. Sarmad Patino MCH 28.8 pg Normal 26.7-34.0 [facility] Comment on above: Performed By: #### D DAVIDSON, MG, PHOS, CMP, LIPID, URIC #### [facility] [address] [place] [address] Dr. Sarmad Patino MCHC 33.2 g/dl Normal 29.9-35.2 [facility] Comment on above: Performed By: #### D DAVIDSON, MG, PHOS, CMP, LIPID, URIC #### [facility] [address] [place] [address] Dr. Sarmad Patino MCV 86.8 fL Normal 81.0-99.0 [facility] Comment on above: Performed By: #### D DAVIDSON, MG, PHOS, CMP, LIPID, URIC #### [facility] [address] [place] [address] Dr. Sarmad Patino METAMYELOCYTE # Normal [facility] Comment on above: Performed By: #### D DAVIDSON, MG, PHOS, CMP, LIPID, URIC #### [facility] [address] [address] [address] Sarmad Patino METAMYELOCYTE % Normal [facility] Comment on above: Performed By: #### D DAVIDSON, MG, PHOS, CMP, LIPID, URIC #### [facility] [address] [address] [address] Sarmad Patino MONOM# 0.84 103/ul Critically high 0.30-0.80 [facility] Comment on above: Performed By: #### D DAVIDSON, MG, PHOS, CMP, LIPID, URIC #### [facility] [address] [address] [address] Sarmad Patino MONOM% 6.0 % Normal 1.7-12.0 [facility] Comment on above: Performed By: #### D DAVIDSON, MG, PHOS, CMP, LIPID, URIC #### [facility] [address] [place] [address] Dr. Sarmad Patino MPV 11.5 fL Normal 9.5-13.5 [facility] Comment on above: Performed By: #### D DAVIDSON, MG, PHOS, CMP, LIPID, URIC #### [facility] [address] [address] [address] Sarmad Patino MYELOCYTE # 0.3 103/ul Normal [facility] Comment on above: Performed By: #### D DAVIDSON, MG, PHOS, CMP, LIPID, URIC #### [facility] [address] [address] [address] Sarmad Patino MYELOCYTE % 2 % Normal [facility] Comment on above: Performed By: #### D DAVIDSON, MG, PHOS, CMP, LIPID, URIC #### [facility] [address] [address] [address] Sarmad Patino NRBC Normal [facility] Comment on above: Performed By: #### D DAVIDSON, MG, PHOS, CMP, LIPID, URIC #### [facility] [address] [address] [address] Sarmad Patino PLT 180 103/ul Normal 150-450 [facility] Comment on above: Performed By: #### D DAVIDSON, MG, PHOS, CMP, LIPID, URIC #### [facility] [address] [address] [address] Sarmad Patino RBC 4.93 106/ul Normal 4.20-5.40 [facility] Comment on above: Performed By: #### D DAVIDSON, MG, PHOS, CMP, LIPID, URIC #### [facility] [address] [place] [address] Dr. Sarmad Patino RDW 13.9 % Normal 11.0-15.0 [facility] Comment on above: Performed By: #### D DAVIDSON, MG, PHOS, CMP, LIPID, URIC #### [facility] [address] [place] [address] Dr. Sarmad Patino SEG # 10.78 103/ul Critically high 1.40-6.50 [facility] Comment on above: Performed By: #### D DAVIDSON, MG, PHOS, CMP, LIPID, URIC #### [facility] [address] [place] [address] Dr. Sarmad Patino SEG % 77.0 % Critically high 43.0-75.0 [facility] Comment on above: Performed By: #### D DAVIDSON, MG, PHOS, CMP, LIPID, URIC #### [facility] [address] [place] [address] Dr. Sarmad Patino WBC 14.0 103/ul Critically high 4.0-11.0 [facility] Comment on above: Performed By: #### D DAVIDSON, MG, PHOS, CMP, LIPID, URIC #### [facility] [address] [place] [address] NECK [address] W [...] middle ear cavities clear. Skull base intact. Tile Mechanic spaces normal. Parotid glands normal. Submandibular glands [...] F HOPPER Date: 2022-01-03 10:40 Normal [facility] Covid-19 PCR (CVDTB)on SARS-CoV-2 (COVID-19) RNA MURALI+probe Ql (Unsp spec) Detected Critically abnormal NOT DETECTED [facility] Comment on above: Result Comment: This test is not yet approved or cleared by the [place] FDA. When there are no FDA-approved or cleared tests available, and other criteria are met, FDA can make tests available under an emergency access mechanism called an Emergency Use Authorization (EUA). The EUA for this test is supported by the Scientific Process Operator of Health and Human Service's declaration [...] DAVIDSON, MG, PHOS, CMP, LIPID, URIC #### [facility] [address] [place] [address] Dr. Sarmad Patino GROUP A STREP CULTUREon S. pyogenes Ag Ql (Unsp spec) Culture Observations: Negative for Group A Streptococcus Normal [facility] Comment on above: Performed By: #### U JUVE, LIPID, MG, CMP, DBIL, PHOS #### [facility] [address] [address] [address] Sarmad Patino INFLUENZA A AND B AGon 01-03 INFLUENZA A AG Negative Normal NEGATIVE SEE COMMENT [facility] Comment on above: Performed By: #### D DAVIDSON, MG, PHOS, CMP, LIPID, URIC #### [facility] [address] [address] [address] Sarmad Patino INFLUENZA B AG Negative Normal NEGATIVE SEE COMMENT [facility] Comment on above: Performed By: #### D DAVIDSON, MG, PHOS, CMP, LIPID, URIC #### [facility] [address] [address] [address] Sarmad Patino INTERNAL CONTROLS Within Normal Limits Normal Wi thin Normal Limits [facility] Comment on above: Performed By: #### D DAVIDSON, MG, PHOS, CMP, LIPID, URIC #### [facility] [address] [address] [address] Sarmad Patino PROF 14(COMP METB)on 022 Albumin [Mass/Vol] 2.5 g/dL Critically low 3.4-5.0 Th e [facility] Comment on above: Performed By: #### U JUVE, LIPID, MG, CMP, DBIL, PHOS #### [facility] [address] [address] [address] Sarmad Patino Albumin/Globulin [Mass ratio] 0.5 {ratio} Normal [facility] Comment on above: Performed By: #### U JUVE, LIPID, MG, CMP, DBIL, PHOS #### [facility] [address] [address] [address] Sarmad Patino ALP [Catalytic activity/Vol] 185 U/L Critically high 46-116 [facility] Comment on above: Performed By: #### U JUVE, LIPID, MG, CMP, DBIL, PHOS #### [facility] [address] [address] [address] Sarmad Patino ALT [Catalytic activity/Vol] 108 U/L Critically high 14-59 [facility] Comment on above: Performed By: #### U JUVE, LIPID, MG, CMP, DBIL, PHOS #### [facility] [address] [place] [address] Dr. Sarmad Patino Anion gap [Moles/Vol] 8.3 mmol/L Normal [facility] Comment on above: Performed By: #### U JUVE, LIPID, MG, CMP, DBIL, PHOS #### [facility] [address] [address] [address] Sarmad Patino AST [Catalytic activity/Vol] 59 U/L Critically high 15-37 [facility] Comment on above: Performed By: #### U JUVE, LIPID, MG, CMP, DBIL, PHOS #### [facility] [address] [place] [address] Dr. Sarmad Patino Bilirubin [Mass/Vol] 0.6 mg/dL Normal 0.2-1.0 [facility] Comment on above: Performed By: #### U JUVE, LIPID, MG, CMP, DBIL, PHOS #### [facility] [address] [place] [address] Dr. Sarmad Patino Calcium [Mass/Vol] 9.0 mg/dL Normal 8.5-10.1 [facility] Comment on above: Performed By: #### U JUVE, LIPID, MG, CMP, DBIL, PHOS #### [facility] [address] [place] [address] Dr. Sarmad Patino Chloride [Moles/Vol] 100 mmol/L Normal 98-107 [facility] Comment on above: Performed By: #### U JUVE, LIPID, MG, CMP, DBIL, PHOS #### [facility] [address] [place] [address] Dr. Sarmad Patino CO2 [Moles/Vol] 29.0 mmol/L Normal 21.0-32.0 [facility] Comment on above: Performed By: #### U JUVE, LIPID, MG, CMP, DBIL, PHOS #### [facility] [address] [place] [address] Dr. Sarmad Patino Creatinine [Mass/Vol] 1.05 mg/dL Critically high 0.55-1.02 [facility] Comment on above: Performed By: #### U JUVE, LIPID, MG, CMP, DBIL, PHOS #### [facility] [address] [address] [address] Sarmad Patino EGFR-AF CZECH >60 Normal >=60 [facility] Comment on above: Performed By: #### U JUVE, LIPID, MG, CMP, DBIL, PHOS #### [facility] [address] [place] [address] Dr. Sarmad Patino EGFR-NON AF CZECH 53 mL/min/1.73m2 Critically low >=60 [facility] Comment on above: Performed By: #### U JUVE, LIPID, MG, CMP, DBIL, PHOS #### [facility] [address] [place] [address] Dr. Sarmad Patino Globulin (S) [Mass/Vol] 4.6 g/dL Normal [facility] Comment on above: Performed By: #### U JUVE, LIPID, MG, CMP, DBIL, PHOS #### [facility] [address] [place] [address] Dr. Sarmad Patino Glucose [Mass/Vol] 154 mg/dL Critically high 74-106 [facility] Comment on above: Performed By: #### U JUVE, LIPID, MG, CMP, DBIL, PHOS #### [facility] [address] [place] [address] Dr. Sarmad Patino Potassium [Moles/Vol] 3.3 mmol/L Critically low 3.5-5.1 [facility] Comment on above: Performed By: #### U JUVE, LIPID, MG, CMP, DBIL, PHOS #### [facility] [address] [place] [address] Dr. Sarmad Patino Protein [Mass/Vol] 7.1 g/dL Normal 6.4-8.2 [facility] Comment on above: Performed By: #### U JUVE, LIPID, MG, CMP, DBIL, PHOS #### [facility] [address] [address] [address] Sarmad Patino Sodium [Moles/Vol] 134 mmol/L Critically low 136-145 Th e [facility] Comment on above: Performed By: #### U JUVE, LIPID, MG, CMP, DBIL, PHOS #### [facility] [address] [address] [address] Sarmad Patino Urea nitrogen [Mass/Vol] 24.0 mg/dL Critically high 7.0-18.0 [facility] Comment on above: Performed By: #### U JUVE, LIPID, MG, CMP, DBIL, PHOS #### [facility] [address] [address] [address] Sarmad Patino Urea nitrogen/Creatinine [Mass ratio] 22.9 mg/mg Normal [facility] Comment on above: Performed By: #### U JUVE, LIPID, MG, CMP, DBIL, PHOS #### [facility] [address] [address] [address] Sarmad Patino STREPT SCREENon 01-03-2022 STREP SCREEN A Negative Normal NEGATIVE [facility] Comment on above: Performed By: #### U JUVE, LIPID, MG, CMP, DBIL, PHOS #### [facility] [address] [address] [address] Sarmad Patino XR CHEST 2 Von [...] MAYRA WHITESIDE Date: 2022-01-03 03:54 Normal [facility] Quick Strepon 12-28-2021 S. pyogenes Org specific cx Ql (Throat) Negative [employer] Other Quick Strep [employer] Other SARS-CoV-2 (COVID-19) RNA NA A+probe Ql (Resp)on 12-25-2021 SARS-CoV-2 (COVID-19) RNA MURALI+probe Ql (Unsp spec) Negative [employer] Other FK506 (TACROLIMUS) WHOLE BLO ODon 12-08-2021 Tacrolimus (FK506), Blood 6.6 ng/mL Normal 2.0-20.0 [facility] Comment on above: Result Comment: Trou gh (immediately following transplant) 15.0 . Trough (steady state, 2 weeks or more after transplant): 3.0 - 8.0 . Performed by LC-MS/MS technology. Performed By: #### D DAVIDSON, MG, PHOS, CMP, LIPID, URIC #### [facility] [address] [place] [address] Dr. Sarmad Patino RAPAMUNE(SIROLIMUS)on 2021 Rapamune(Sirolimus), whole blood 9.6 ng/mL Normal 3.0-20.0 [facility] Comment on above: Result Comment: Perf ormed by LC/MS-MS technology . This test was developed and its performance characteristics determined by [employer]. It has not been cleared or approved by the Food and Drug Administration. Performed By: #### D DAVIDSON, MG, PHOS, CMP, LIPID, URIC #### [facility] [address] [address] [address] Sarmad Patino BILIRUBIN CONJUGATED (DIRECT )on 12-05-2021 BILI, CONJUGATED 0.1 mg/dL Normal 0.0-0.2 [facility] Comment on above: Performed By: #### D DAVIDSON, MG, PHOS, CMP, LIPID, URIC #### [facility] [address] [address] [address] Sarmad Patino CBC W MANUAL DIFFon 12-06-19 22 ATYPICAL LYMPH # Normal [facility] Comment on above: Performed By: #### D DAVIDSON, MG, PHOS, CMP, LIPID, URIC #### [facility] [address] [place] [address] Dr. Sarmad Patino ATYPICAL LYMPH % Normal [facility] Comment on above: Performed By: #### D DAVIDSON, MG, PHOS, CMP, LIPID, URIC #### [facility] [address] [place] [address] Dr. Sarmad Patino BAND # Normal 0.0-0.3 [facility] Comment on above: Performed By: #### D DAVIDSON, MG, PHOS, CMP, LIPID, URIC #### [facility] [address] [place] [address] Dr. Sarmad Patino BAND % Normal 0-5 [facility] Comment on above: Performed By: #### D DAVIDSON, MG, PHOS, CMP, LIPID, URIC #### [facility] [address] [place] [address] Dr. Sarmad Patino BASOM # 0.00 103/ul Normal 0.00-0.10 [facility] Comment on above: Performed By: #### D DAVIDSON, MG, PHOS, CMP, LIPID, URIC #### [facility] [address] [place] [address] Dr. Sarmad Patino BASOM % 0.0 % Critically low 0.2-2.0 [facility] Comment on above: Performed By: #### D DAVIDSON, MG, PHOS, CMP, LIPID, URIC #### [facility] [address] [place] [address] Dr. Sarmad Patino BLAST # Normal [facility] Comment on above: Performed By: #### D DAVIDSON, MG, PHOS, CMP, LIPID, URIC #### [facility] [address] [place] [address] Dr. Sarmad Patino BLAST % Normal [facility] Comment on above: Performed By: #### D DAVIDSON, MG, PHOS, CMP, LIPID, URIC #### [facility] [address] [place] [address] Dr. Sarmad Patino CORRECTED WBC Normal 4.0-11.0 [facility] Comment on above: Performed By: #### D DAVIDSON, MG, PHOS, CMP, LIPID, URIC #### [facility] [address] [place] [address] Dr. Sarmad Patino EOS # 0.15 103/ul Normal 0.00-0.70 [facility] Comment on above: Performed By: #### D DAVIDSON, MG, PHOS, CMP, LIPID, URIC #### [facility] [address] [place] [address] Dr. Sarmad Patino EOS% 2.0 % Normal 0.9-7.0 [facility] Comment on above: Performed By: #### D DAVIDSON, MG, PHOS, CMP, LIPID, URIC #### [facility] [address] [place] [address] Dr. Sarmad Patino HCT 47.5 % Normal 36.0-48.0 [facility] Comment on above: Performed By: #### D DAVIDSON, MG, PHOS, CMP, LIPID, URIC #### [facility] [address] [place] [address] Dr. Sarmad Patino HGB 15.6 g/dl Normal 12.0-16.0 [facility] Comment on above: Performed By: #### D DAVIDSON, MG, PHOS, CMP, LIPID, URIC #### [facility] [address] [place] [address] Dr. Sarmad Patino LYMPHM # 1.46 103/ul Normal 1.20-3.80 [facility] Comment on above: Performed By: #### D DAVIDSON, MG, PHOS, CMP, LIPID, URIC #### [facility] [address] [place] [address] Dr. Sarmad Patino LYMPHM% 19.0 % Critically low 20.5-60.0 [facility] Comment on above: Performed By: #### D DAVIDSON, MG, PHOS, CMP, LIPID, URIC #### [facility] [address] [place] [address] Dr. Sarmad Patino MCH 28.9 pg Normal 26.7-34.0 [facility] Comment on above: Performed By: #### D DAVIDSON, MG, PHOS, CMP, LIPID, URIC #### [facility] [address] [address] [address] Sarmad Patino MCHC 32.8 g/dl Normal 29.9-35.2 [facility] Comment on above: Performed By: #### D DAVIDSON, MG, PHOS, CMP, LIPID, URIC #### [facility] [address] [place] [address] Dr. Sarmad Patino MCV 88.1 fL Normal 81.0-99.0 [facility] Comment on above: Performed By: #### D DAVIDSON, MG, PHOS, CMP, LIPID, URIC #### [facility] [address] [place] [address] Dr. Sarmad Patino METAMYELOCYTE # Normal [facility] Comment on above: Performed By: #### D DAVDISON, MG, PHOS, CMP, LIPID, URIC #### [facility] [address] [place] [address] Dr. Sarmad Patino METAMYELOCYTE % Normal [facility] Comment on above: Performed By: #### D DAVIDSON, MG, PHOS, CMP, LIPID, URIC #### [facility] [address] [place] [address] Dr. Sarmad Patino MONOM# 0.85 103/ul Critically high 0.30-0.80 [facility] Comment on above: Performed By: #### D DAVIDSON, MG, PHOS, CMP, LIPID, URIC #### [facility] [address] [place] [address] Dr. Sarmad Patino MONOM% 11.0 % Normal 1.7-12.0 [facility] Comment on above: Performed By: #### D DAVIDSON, MG, PHOS, CMP, LIPID, URIC #### [facility] [address] [place] [address] Dr. Sarmad Patino MPV 11.3 fL Normal 9.5-13.5 [facility] Comment on above: Performed By: #### D DAVIDSON, MG, PHOS, CMP, LIPID, URIC #### [facility] [address] [place], [place] [address] Dr. Sarmad Patino MYELOCYTE # Normal [facility] Comment on above: Performed By: #### D DAVIDSON, MG, PHOS, CMP, LIPID, URIC #### [facility] [address] [place] [address] Dr. Sarmad Patino MYELOCYTE % Normal [facility] Comment on above: Performed By: #### D DAVIDSON, MG, PHOS, CMP, LIPID, URIC #### [facility] [address] [place] [address] Dr. Sarmad Patino NRBC Normal [facility] Comment on above: Performed By: #### D DAVIDSON, MG, PHOS, CMP, LIPID, URIC #### [facility] [address] [place] [address] Dr. Sarmad Patino PLT 214 103/ul Normal 150-450 [facility] Comment on above: Performed By: #### D DAVIDSON, MG, PHOS, CMP, LIPID, URIC #### [facility] [address] [place] [address] Dr. Sarmad Patino RBC 5.39 106/ul Normal 4.20-5.40 [facility] Comment on above: Performed By: #### D DAVIDSON, MG, PHOS, CMP, LIPID, URIC #### [facility] [address] [place] [address] Dr. Sarmad Patino RDW 13.8 % Normal 11.0-15.0 [facility] Comment on above: Performed By: #### D DAVIDSON, MG, PHOS, CMP, LIPID, URIC #### [facility] [address] [place] [address] Dr. Sarmad Patino SEG # 5.24 103/ul Normal 1.40-6.50 [facility] Comment on above: Performed By: #### D DAVIDSON, MG, PHOS, CMP, LIPID, URIC #### [facility] [address] [place] [address] Dr. Sarmad Patino SEG % 68.0 % Normal 43.0-75.0 [facility] Comment on above: Performed By: #### D DAVIDSON, MG, PHOS, CMP, LIPID, URIC #### [facility] [address] [address] [address] Sarmad Patino WBC 7.7 103/ul Normal 4.0-11.0 [facility] Comment on above: Performed By: #### D DAVIDSON, MG, PHOS, CMP, LIPID, URIC #### [facility] [address] [address] [address] Sarmad Patino LIPID PROFILEon 12-05-2021 CHOL-HDL RATIO NORM SEE BELOW Normal [facility] Comment on above: Result Comment: 3.3 - 4.4 LOW RISK 4.4 - 7.1 AVERAGE RISK 7.1 - 11.0 MODERATE RISK >11.0 HIGH RISK Performed By: #### D DAVIDSON, MG, PHOS, CMP, LIPID, URIC #### [facility] [address] [address] [address] Sarmad Patino Cholesterol [Mass/Vol] 170 mg/dL Normal <=200 [facility] Comment on above: Performed By: #### D DAVIDSON, MG, PHOS, CMP, LIPID, URIC #### [facility] [address] [address] [address] Sarmad Patino Cholesterol in HDL [Mass/Vol] 54 mg/dL Normal 40-60 [facility] Comment on above: Performed By: #### D DAVIDSON, MG, PHOS, CMP, LIPID, URIC #### [facility] [address] [address] [address] Sarmad Patino Cholesterol in LDL [Mass/Vol] 92.2 mg/dL Normal [facility] Comment on above: Performed By: #### D DAVIDSON, MG, PHOS, CMP, LIPID, URIC #### [facility] [address] [address] [address] Sarmad Patino Cholesterol.total/Cho lesterol in HDL [Mass ratio] 3.1 {ratio} Normal [facility] Comment on above: Performed By: #### D DAVIDSON, MG, PHOS, CMP, LIPID, URIC #### [facility] [address] [address] [address] Sarmad Patino HDL NORMAL > or = 60 mg/dl - LO W CARDIOVASCULAR RISK <40 mg/dl - HIGH CARDIOVASCULAR RISK Normal [facility] Comment on above: Performed By: #### D DAVIDSON, MG, PHOS, CMP, LIPID, URIC #### [facility] [address] [address] [address] Sarmad Patino LDL CALC NORMAL SEE BELOW Normal [facility] Comment on above: Result Comment: <100 mg/dl OPTIMAL 100 - 129 mg/dl NEAR OR ABOVE OPTIMAL 130 - 159 mg/dl BORDERLINE HIGH 160 - 189 mg/dl HIGH >190 mg/dl VERY HIGH Performed By: #### D DAVIDSON, MG, PHOS, CMP, LIPID, URIC #### [facility] [address] [address] [address] Sarmad Patino Triglyceride [Mass/Vol] 119 mg/dL Normal <=150 [facility] Comment on above: Performed By: #### D DAVIDSON, MG, PHOS, CMP, LIPID, URIC #### [facility] [address] [place] [address] Dr. Sarmad Patino VLDL CALC 23.8 mg/dL Normal [facility] Comment on above: Performed By: #### D DAVIDSON, MG, PHOS, CMP, LIPID, URIC #### [facility] [address] [address] [address] Sarmad Patino MAGNESIUMon 12-05-2021 Magnesium [Mass/Vol] 1.8 mg/dL Normal 1.8-2.4 [facility] Comment on above: Performed By: #### D DAVIDSON, MG, PHOS, CMP, LIPID, URIC #### [facility] [address] [place] [address] Dr. Sarmad Patino PHOSPHORUSon 12-05-2021 Phosphate [Mass/Vol] 3.8 mg/dL Normal 2.6-4.7 [facility] Comment on above: Performed By: #### D DAVIDSON, MG, PHOS, CMP, LIPID, URIC #### [facility] [address] [place] [address] Dr. Sarmad Patino PROF 14(COMP METB)on 022 Albumin [Mass/Vol] 3.7 g/dL Normal 3.4-5.0 [facility] Comment on above: Performed By: #### D DAVIDSON, MG, PHOS, CMP, LIPID, URIC #### [facility] [address] [address] [address] Sarmad Patino Albumin/Globulin [Mass ratio] 1.0 {ratio} Normal [facility] Comment on above: Performed By: #### D DAVIDSON, MG, PHOS, CMP, LIPID, URIC #### [facility] [address] [address] [address] Sarmad Patino ALP [Catalytic activity/Vol] 151 U/L Critically high 46-116 [facility] Comment on above: Performed By: #### D DAVIDSON, MG, PHOS, CMP, LIPID, URIC #### [facility] [address] [place] [address] Dr. Sarmad Patino ALT [Catalytic activity/Vol] 27 U/L Normal 14-59 [facility] Comment on above: Performed By: #### D DAVIDSON, MG, PHOS, CMP, LIPID, URIC #### [facility] [address] [place] [address] Dr. Sarmad Patino Anion gap [Moles/Vol] 14.5 mmol/L Normal [facility] Comment on above: Performed By: #### D DAVIDSON, MG, PHOS, CMP, LIPID, URIC #### [facility] [address] [place] [address] Dr. Sarmad Patino AST [Catalytic activity/Vol] 25 U/L Normal 15-37 [facility] Comment on above: Performed By: #### D DAVIDSON, MG, PHOS, CMP, LIPID, URIC #### [facility] [address] [place] [address] Dr. Sarmad Patino Bilirubin [Mass/Vol] 0.4 mg/dL Normal 0.2-1.0 [facility] Comment on above: Performed By: #### D DAVIDSON, MG, PHOS, CMP, LIPID, URIC #### [facility] [address] [place] [address] Dr. Sarmad Patino Calcium [Mass/Vol] 9.4 mg/dL Normal 8.5-10.1 [facility] Comment on above: Performed By: #### D DAVIDSON, MG, PHOS, CMP, LIPID, URIC #### [facility] [address] [address] [address] Sarmad Patino Chloride [Moles/Vol] 103 mmol/L Normal 98-107 [facility] Comment on above: Performed By: #### D DAVIDSON, MG, PHOS, CMP, LIPID, URIC #### [facility] [address] [address] [address] Sarmad Patino CO2 [Moles/Vol] 26.5 mmol/L Normal 21.0-32.0 [facility] Comment on above: Performed By: #### D DAVIDSON, MG, PHOS, CMP, LIPID, URIC #### [facility] [address] [place] [address] Dr. Sarmad Patino Creatinine [Mass/Vol] 0.87 mg/dL Normal 0.55-1.02 [facility] Comment on above: Performed By: #### D DAVIDSON, MG, PHOS, CMP, LIPID, URIC #### [facility] [address] [place] [address] Dr. Sarmad Patino EGFR-AF CZECH >60 Normal >=60 [facility] Comment on above: Performed By: #### D DAVIDSON, MG, PHOS, CMP, LIPID, URIC #### [facility] [address] [place] [address] Dr. Sarmad Patino EGFR-NON AF CZECH >60 Normal >=60 [facility] Comment on above: Performed By: #### D DAVIDSON, MG, PHOS, CMP, LIPID, URIC #### [facility] [address] [place] [address] Dr. Sarmad Patino Globulin (S) [Mass/Vol] 3.8 g/dL Normal [facility] Comment on above: Performed By: #### D DAVIDSON, MG, PHOS, CMP, LIPID, URIC #### [facility] [address] [place] [address] Dr. Sarmad Patino Glucose [Mass/Vol] 104 mg/dL Normal 74-106 [facility] Comment on above: Performed By: #### D DAVIDSON, MG, PHOS, CMP, LIPID, URIC #### [facility] [address] [address] [address] Sarmad Patino Potassium [Moles/Vol] 4.0 mmol/L Normal 3.5-5.1 [facility] Comment on above: Performed By: #### D DAVIDSON, MG, PHOS, CMP, LIPID, URIC #### [facility] [address] [place] [address] Dr. Sarmad Patino Protein [Mass/Vol] 7.5 g/dL Normal 6.4-8.2 [facility] Comment on above: Performed By: #### D DAVIDSON, MG, PHOS, CMP, LIPID, URIC #### [facility] [address] [place] [address] Dr. Sarmad Patino Sodium [Moles/Vol] 140 mmol/L Normal 136-145 [facility] Comment on above: Performed By: #### D DAVIDSON, MG, PHOS, CMP, LIPID, URIC #### [facility] [address] [place] [address] Dr. Sarmad Patino Urea nitrogen [Mass/Vol] 19.0 mg/dL Critically high 7.0-18.0 [facility] Comment on above: Performed By: #### D DAVIDSON, MG, PHOS, CMP, LIPID, URIC #### [facility] [address] [place] [address] Dr. Sarmad Patino Urea nitrogen/Creatinine [Mass ratio] 21.8 mg/mg Normal [facility] Comment on above: Performed By: #### D DAVIDSON, MG, PHOS, CMP, LIPID, URIC #### [facility] [address] [place] [address] Dr. Sarmad Patino URIC ACID SERUMon 12-05-2021 Urate [Mass/Vol] 5.2 mg/dL Normal 2.6-6.0 [facility] Comment on above: Performed By: #### D DAVIDSON, MG, PHOS, CMP, LIPID, URIC #### [facility] [address] [place] [address] Dr. Sarmad TRIVEDI, WHOLE BLOODon EVEROLIMUS 7.0 ng/mL Normal 3.0-8.0 [facility] Comment on above: Result Comment: Perf ormed by LC-MS/MS technology. Performed By: #### D DAVIDSON, MG, PHOS, CMP, LIPID, URIC #### [facility] [address] [place] [address] Dr. Sarmad Patino FK506 (TACROLIMUS) WHOLE BLO ODon 11-10-2021 Tacrolimus (FK506), Blood 6.4 ng/mL Normal 2.0-20.0 [facility] Comment on above: Result Comment: Trou gh (immediately following transplant) 15.0 . Trough (steady state, 2 weeks or more after transplant): 3.0 - 8.0 . Performed by LC-MS/MS technology. Performed By: #### D DAVIDSON, MG, PHOS, CMP, LIPID, URIC #### [facility] [address] [place] [address] Dr. Sarmad Patino BK VIRUS PCR QUANTon 022 BKV DNA QUANT PCR PLASMA Negative Normal Negative [facility] Comment on above: Result Comment: No B K DNA detected. . The linear range of the assay is 22 - 100,000,000 IU/mL. Performed By: #### U JUVE, LIPID, MG, CMP, DBIL, PHOS #### [facility] [address] [place] [address] Dr. Sarmad Patino Log10 BKV DNA Plasma Normal [facility] Comment on above: Performed By: #### U JUVE, LIPID, MG, CMP, DBIL, PHOS #### [facility] [address] [place] [address] Dr. Sarmad Patino BILIRUBIN CONJUGATED (DIRECT )on 11-07-2021 BILI, CONJUGATED 0.1 mg/dL Normal 0.0-0.2 [facility] Comment on above: Performed By: #### D DAVIDSON, MG, PHOS, CMP, LIPID, URIC #### [facility] [address] [place] [address] Dr. Sarmad Patino CBC AUTO DIFFon 11-07-2021 BASO # 0.0 103/ul Normal 0.0-0.1 [facility] Comment on above: Performed By: #### D DAVIDSON, MG, PHOS, CMP, LIPID, URIC #### [facility] [address] [place] [address] Dr. Sarmad Patino Basophils/100 WBC (Bld) 0.3 % Normal 0.2-2.0 [facility] Comment on above: Performed By: #### D DAVIDSON, MG, PHOS, CMP, LIPID, URIC #### [facility] [address] [place] [address] Dr. Sarmad Patino EO # 0.1 103/ul Normal 0.0-0.7 [facility] Comment on above: Performed By: #### D DAVIDSON, MG, PHOS, CMP, LIPID, URIC #### [facility] [address] [place] [address] Dr. Sarmad Patino Eosinophils/100 WBC (Bld) 2.1 % Normal 0.9-7.0 [facility] Comment on above: Performed By: #### D DAVIDSON, MG, PHOS, CMP, LIPID, URIC #### [facility] [address] [place] [address] Dr. Sarmad Patino Erythrocyte distribution width (RBC) [Ratio] 13.5 % Normal 11.0-15.0 [facility] Comment on above: Performed By: #### D DAVIDSON, MG, PHOS, CMP, LIPID, URIC #### [facility] [address] [place] [address] Dr. Sarmad Patino Hematocrit (Bld) [Volume fraction] 46.7 % Normal 36.0-48.0 [facility] Comment on above: Performed By: #### D DAVIDSON, MG, PHOS, CMP, LIPID, URIC #### [facility] [address] [place] [address] Dr. Sarmad Patino Hemoglobin (Bld) [Mass/Vol] 15.1 g/dL Normal 12.0-16.0 [facility] Comment on above: Performed By: #### D DAVIDSON, MG, PHOS, CMP, LIPID, URIC #### [facility] [address] [place] [address] Dr. Sarmad Patino IG # 0.03 10e3/ul Normal 0.00-0.03 [facility] Comment on above: Performed By: #### D DAVIDSON, MG, PHOS, CMP, LIPID, URIC #### [facility] [address] [address] [address] Sarmad Patino IG % 0.5 % Normal 0.0-0.5 [facility] Comment on above: Performed By: #### D DAVIDSON, MG, PHOS, CMP, LIPID, URIC #### [facility] [address] [place] [address] Dr. Sarmad Patino LYMPH # 1.3 103/ul Normal 1.2-3.8 [facility] Comment on above: Performed By: #### D DAVIDSON, MG, PHOS, CMP, LIPID, URIC #### [facility] [address] [place] [address] Dr. Sarmad Patino Lymphocytes/100 WBC (Bld) 19.9 % Critically low 20.5-60.0 [facility] Comment on above: Performed By: #### D DAVIDSON, MG, PHOS, CMP, LIPID, URIC #### [facility] [address] [place] [address] Dr. Sarmad Patino MANUAL DIFF REQ NO Normal [facility] Comment on above: Performed By: #### D DAVIDSON, MG, PHOS, CMP, LIPID, URIC #### [facility] [address] [place] [address] Dr. Sarmad Patino MCH (RBC) [Entitic mass] 28.6 pg Normal 26.7-34.0 [facility] Comment on above: Performed By: #### D DAVIDSON, MG, PHOS, CMP, LIPID, URIC #### [facility] [address] [place] [address] Dr. Sarmad Patino MCHC (RBC) [Mass/Vol] 32.3 g/dL Normal 29.9-35.2 [facility] Comment on above: Performed By: #### D DAVIDSON, MG, PHOS, CMP, LIPID, URIC #### [facility] [address] [place] [address] Dr. Sarmad Patino MCV (RBC) [Entitic vol] 88.4 fL Normal 81.0-99.0 [facility] Comment on above: Performed By: #### D DAVIDSON, MG, PHOS, CMP, LIPID, URIC #### [facility] [address] [address] [address] Sarmad Patino MONO # 0.8 103/ul Normal 0.3-0.8 [facility] Comment on above: Performed By: #### D DAVIDSON, MG, PHOS, CMP, LIPID, URIC #### [facility] [address] [place] [address] Dr. Sarmad Patino Monocytes/100 WBC (Bld) 12.9 % Critically high 1.7-12.0 [facility] Comment on above: Performed By: #### D DAVIDSON, MG, PHOS, CMP, LIPID, URIC #### [facility] [address] [place] [address] Dr. Sarmad Patino NEUT # 4.0 103/ul Normal 1.4-6.5 [facility] Comment on above: Performed By: #### D DAVIDSON, MG, PHOS, CMP, LIPID, URIC #### [facility] [address] [place] [address] Dr. Sarmad Patino Neutrophils/100 WBC (Bld) 64.3 % Normal 43.0-75.0 [facility] Comment on above: Performed By: #### D DAVIDSON, MG, PHOS, CMP, LIPID, URIC #### [facility] [address] [place] [address] Dr. Sarmad Patino Platelet mean volume (Bld) [Entitic vol] 11.3 fL Normal 9.5-13.5 [facility] Comment on above: Performed By: #### D DAVIDSON, MG, PHOS, CMP, LIPID, URIC #### [facility] [address] [place] [address] Dr. Sarmad Patino PLT 241 103/ul Normal 150-450 [facility] Comment on above: Performed By: #### D DAVIDSON, MG, PHOS, CMP, LIPID, URIC #### [facility] [address] [place] [address] Dr. Sarmad Patino RBC 5.28 106/ul Normal 4.20-5.40 [facility] Comment on above: Performed By: #### D DAVIDSON, MG, PHOS, CMP, LIPID, URIC #### [facility] [address] [address] [address] Sarmad Patino WBC 6.3 103/ul Normal 4.0-11.0 [facility] Comment on above: Performed By: #### D DAVIDSON, MG, PHOS, CMP, LIPID, URIC #### [facility] [address] [address] [address] Sarmad Patino GLYCOHEMOGLOBIN A1Con 2021 ADA RECOMMENDATION SEE BELOW Normal [facility] Comment on above: Result Comment: ADA RECOMMENDED LIMIT 4.0 - 6.0 ADA THERAPEUTIC TARGET < 7.0 ACTION SUGGESTED > 7.0 Performed By: #### D DAVIDSON, MG, PHOS, CMP, LIPID, URIC #### [facility] [address] [place] [address] Dr. Sarmad Patino Glucose [Mass/Vol] 120 mg/dL Normal [facility] Comment on above: Performed By: #### D DAVIDSON, MG, PHOS, CMP, LIPID, URIC #### [facility] [address] [address] [address] Sarmad Patino HbA1c (Bld) [Mass fraction] 5.8 % Normal 4.5-6.2 [facility] Comment on above: Performed By: #### D DAVIDSON, MG, PHOS, CMP, LIPID, URIC #### [facility] [address] [address] [address] Sarmad Patino LIPID PROFILEon 11-07-2021 CHOL-HDL RATIO NORM SEE BELOW Normal [facility] Comment on above: Result Comment: 3.3 - 4.4 LOW RISK 4.4 - 7.1 AVERAGE RISK 7.1 - 11.0 MODERATE RISK >11.0 HIGH RISK Performed By: #### D DAVIDSON, MG, PHOS, CMP, LIPID, URIC #### [facility] [address] [address] [address] Sarmad Patino Cholesterol [Mass/Vol] 157 mg/dL Normal <=200 [facility] Comment on above: Performed By: #### D DAVIDSON, MG, PHOS, CMP, LIPID, URIC #### [facility] [address] [address] [address] Sarmad Patino Cholesterol in HDL [Mass/Vol] 48 mg/dL Normal 40-60 [facility] Comment on above: Performed By: #### D DAVIDSON, MG, PHOS, CMP, LIPID, URIC #### [facility] [address] [address] [address] Sarmad Patino Cholesterol in LDL [Mass/Vol] 89.6 mg/dL Normal [facility] Comment on above: Performed By: #### D DAVIDSON, MG, PHOS, CMP, LIPID, URIC #### [facility] [address] [address] [address] Sarmad Patino Cholesterol.total/Cho lesterol in HDL [Mass ratio] 3.3 {ratio} Normal [facility] Comment on above: Performed By: #### D DAVIDSON, MG, PHOS, CMP, LIPID, URIC #### [facility] [address] [address] [address] Sarmad Patino HDL NORMAL > or = 60 mg/dl - LO W CARDIOVASCULAR RISK <40 mg/dl - HIGH CARDIOVASCULAR RISK Normal [facility] Comment on above: Performed By: #### D DAVIDSON, MG, PHOS, CMP, LIPID, URIC #### [facility] [address] [address] [address] Sarmad Patino LDL CALC NORMAL SEE BELOW Normal [facility] Comment on above: Result Comment: <100 mg/dl OPTIMAL 100 - 129 mg/dl NEAR OR ABOVE OPTIMAL 130 - 159 mg/dl BORDERLINE HIGH 160 - 189 mg/dl HIGH >190 mg/dl VERY HIGH Performed By: #### D DAVIDSON, MG, PHOS, CMP, LIPID, URIC #### [facility] [address] [address] [address] Sarmad Patino Triglyceride [Mass/Vol] 97 mg/dL Normal <=150 [facility] Comment on above: Performed By: #### D DAVIDSON, MG, PHOS, CMP, LIPID, URIC #### [facility] [address] [address] [address] Sarmad Patino VLDL CALC 19.4 mg/dL Normal [facility] Comment on above: Performed By: #### D DAVIDSON, MG, PHOS, CMP, LIPID, URIC #### [facility] [address] [place] [address] Dr. Sarmad Patino MAGNESIUMon 11-07-2021 Magnesium [Mass/Vol] 1.9 mg/dL Normal 1.8-2.4 [facility] Comment on above: Performed By: #### D DAVIDSON, MG, PHOS, CMP, LIPID, URIC #### [facility] [address] [place] [address] Dr. Sarmad Patino PHOSPHORUSon 11-07-2021 Phosphate [Mass/Vol] 3.4 mg/dL Normal 2.6-4.7 [facility] Comment on above: Performed By: #### D DAVIDSON, MG, PHOS, CMP, LIPID, URIC #### [facility] [address] [place] [address] Dr. Sarmad Patino PROF 14(COMP METB)on 022 Albumin [Mass/Vol] 3.6 g/dL Normal 3.4-5.0 [facility] Comment on above: Performed By: #### D DAVIDSON, MG, PHOS, CMP, LIPID, URIC #### [facility] [address] [place] [address] Dr. Sarmad Patino Albumin/Globulin [Mass ratio] 0.9 {ratio} Normal [facility] Comment on above: Performed By: #### D DAVIDSON, MG, PHOS, CMP, LIPID, URIC #### [facility] [address] [place] [address] Dr. Sarmad Patino ALP [Catalytic activity/Vol] 158 U/L Critically high 46-116 [facility] Comment on above: Performed By: #### D DAVIDSON, MG, PHOS, CMP, LIPID, URIC #### [facility] [address] [place] [address] Dr. Sarmad Patino ALT [Catalytic activity/Vol] 23 U/L Normal 14-59 [facility] Comment on above: Performed By: #### D DAVIDSON, MG, PHOS, CMP, LIPID, URIC #### [facility] [address] [place] [address] Dr. Sarmad Patino Anion gap [Moles/Vol] 14.8 mmol/L Normal [facility] Comment on above: Performed By: #### D DAVIDSON, MG, PHOS, CMP, LIPID, URIC #### [facility] [address] [place] [address] Dr. Sarmad Patino AST [Catalytic activity/Vol] 18 U/L Normal 15-37 [facility] Comment on above: Performed By: #### D DAVIDSON, MG, PHOS, CMP, LIPID, URIC #### [facility] [address] [place] [address] Dr. Sarmad Patino Bilirubin [Mass/Vol] 0.4 mg/dL Normal 0.2-1.0 [facility] Comment on above: Performed By: #### D DAVIDSON, MG, PHOS, CMP, LIPID, URIC #### [facility] [address] [place] [address] Dr. Sarmad Patino Calcium [Mass/Vol] 9.3 mg/dL Normal 8.5-10.1 [facility] Comment on above: Performed By: #### D DAVIDSON, MG, PHOS, CMP, LIPID, URIC #### [facility] [address] [place] [address] Dr. Sarmad Patino Chloride [Moles/Vol] 105 mmol/L Normal 98-107 [facility] Comment on above: Performed By: #### D DAVIDSON, MG, PHOS, CMP, LIPID, URIC #### [facility] [address] [place] [address] Dr. Sarmad Patino CO2 [Moles/Vol] 26.1 mmol/L Normal 21.0-32.0 [facility] Comment on above: Performed By: #### D DAVIDSON, MG, PHOS, CMP, LIPID, URIC #### [facility] [address] [place] [address] Dr. Sarmad Patino Creatinine [Mass/Vol] 0.84 mg/dL Normal 0.55-1.02 [facility] Comment on above: Performed By: #### D DAVIDSON, MG, PHOS, CMP, LIPID, URIC #### [facility] [address] [address] [address] Sarmad Patino EGFR-AF CZECH >60 Normal >=60 [facility] Comment on above: Performed By: #### D DAVIDSON, MG, PHOS, CMP, LIPID, URIC #### [facility] [address] [address] [address] Sarmad Patino EGFR-NON AF CZECH >60 Normal >=60 [facility] Comment on above: Performed By: #### D DAVIDSON, MG, PHOS, CMP, LIPID, URIC #### [facility] [address] [address] [address] Sarmad Patino Globulin (S) [Mass/Vol] 3.8 g/dL Normal [facility] Comment on above: Performed By: #### D DAVIDSON, MG, PHOS, CMP, LIPID, URIC #### [facility] [address] [address] [address] Sarmad Patino Glucose [Mass/Vol] 97 mg/dL Normal 74-106 [facility] Comment on above: Performed By: #### D DAVIDSON, MG, PHOS, CMP, LIPID, URIC #### [facility] [address] [address] [address] Sarmad Patino Potassium [Moles/Vol] 3.9 mmol/L Normal 3.5-5.1 [facility] Comment on above: Performed By: #### D DAVIDSON, MG, PHOS, CMP, LIPID, URIC #### [facility] [address] [address] [address] Sarmad Patino Protein [Mass/Vol] 7.4 g/dL Normal 6.4-8.2 [facility] Comment on above: Performed By: #### D DAVIDSON, MG, PHOS, CMP, LIPID, URIC #### [facility] [address] [address] [address] Sarmad Patino Sodium [Moles/Vol] 142 mmol/L Normal 136-145 [facility] Comment on above: Performed By: #### D DAVIDSON, MG, PHOS, CMP, LIPID, URIC #### [facility] [address] [address] [address] Sarmad Patino Urea nitrogen [Mass/Vol] 21.0 mg/dL Critically high 7.0-18.0 [facility] Comment on above: Performed By: #### D DAVIDSON, MG, PHOS, CMP, LIPID, URIC #### [facility] [address] [place] [address] Dr. Sarmad Patino Urea nitrogen/Creatinine [Mass ratio] 25.0 mg/mg Normal [facility] Comment on above: Performed By: #### D DAVIDSON, MG, PHOS, CMP, LIPID, URIC #### [facility] [address] [place] [address] Dr. Sarmad Patino URIC ACID SERUMon 11-07-2021 Urate [Mass/Vol] 5.1 mg/dL Normal 2.6-6.0 [facility] Comment on above: Performed By: #### D DAVIDSON, MG, PHOS, CMP, LIPID, URIC #### [facility] [address] [place] [address] Dr. Sarmad Patino BOX TEST SENT OUTon 10-16-19 SENT TO REF LAB 10/15/2021 Normal [facility] Comment on above: Performed By: #### D DAVIDSON, MG, PHOS, CMP, LIPID, URIC #### [facility] [address] [place] [address] Dr. Sarmad SALAZAROLIMU, WHOLE BLOODon EVEROLIMUS 6.7 ng/mL Normal 3.0-8.0 [facility] Comment on above: Result Comment: Perf ormed by LC-MS/MS technology. Performed By: #### D DAVIDSON, MG, PHOS, CMP, LIPID, URIC #### [facility] [address] [place] [address] Dr. Sarmad Patino FK506 (TACROLIMUS) WHOLE BLO ODon 10-10-2021 Tacrolimus (FK506), Blood 5.9 ng/mL Normal 2.0-20.0 [facility] Comment on above: Result Comment: Trou gh (immediately following transplant) 15.0 . Trough (steady state, 2 weeks or more after transplant): 3.0 - 8.0 . Performed by LC-MS/MS technology. Performed By: #### D DAVIDSON, MG, PHOS, CMP, LIPID, URIC #### [facility] [address] [address] [address] Sarmad Patino BILIRUBIN CONJUGATED (DIRECT )on 10-08-2021 BILI, CONJUGATED 0.1 mg/dL Normal 0.0-0.2 [facility] Comment on above: Performed By: #### U JUVE, LIPID, MG, CMP, DBIL, PHOS #### [facility] [address] [place] [address] Dr. Sarmad Patino CBC AUTO DIFFon 10-08-2021 BASO # 0.0 103/ul Normal 0.0-0.1 [facility] Comment on above: Performed By: #### D DAVIDSON, MG, PHOS, CMP, LIPID, URIC #### [facility] [address] [place] [address] Dr. Sarmad Patino Basophils/100 WBC (Bld) 0.1 % Critically low 0.2-2.0 [facility] Comment on above: Performed By: #### D DAVIDSON, MG, PHOS, CMP, LIPID, URIC #### [facility] [address] [place] [address] Dr. Sarmad Patino EO # 0.1 103/ul Normal 0.0-0.7 [facility] Comment on above: Performed By: #### D DAVIDSON, MG, PHOS, CMP, LIPID, URIC #### [facility] [address] [place] [address] Dr. Sarmad Patino Eosinophils/100 WBC (Bld) 1.4 % Normal 0.9-7.0 [facility] Comment on above: Performed By: #### D DAVIDSON, MG, PHOS, CMP, LIPID, URIC #### [facility] [address] [place] [address] Dr. Sarmad Patino Erythrocyte distribution width (RBC) [Ratio] 13.6 % Normal 11.0-15.0 [facility] Comment on above: Performed By: #### D DAVIDSON, MG, PHOS, CMP, LIPID, URIC #### [facility] [address] [place] [address] Dr. Sarmad Patino Hematocrit (Bld) [Volume fraction] 47.5 % Normal 36.0-48.0 [facility] Comment on above: Performed By: #### D DAVIDSON, MG, PHOS, CMP, LIPID, URIC #### [facility] [address] [place] [address] Dr. Sarmad Patino Hemoglobin (Bld) [Mass/Vol] 15.7 g/dL Normal 12.0-16.0 [facility] Comment on above: Performed By: #### D DAVIDSON, MG, PHOS, CMP, LIPID, URIC #### [facility] [address] [place] [address] Dr. Sarmad Patino IG # 0.04 10e3/ul Critically high 0.00-0.03 [facility] Comment on above: Performed By: #### D DAVIDSON, MG, PHOS, CMP, LIPID, URIC #### [facility] [address] [place] [address] Dr. Sarmad Patino IG % 0.5 % Normal 0.0-0.5 [facility] Comment on above: Performed By: #### D DAVIDSON, MG, PHOS, CMP, LIPID, URIC #### [facility] [address] [place] [address] Dr. Sarmad Patino LYMPH # 1.3 103/ul Normal 1.2-3.8 [facility] Comment on above: Performed By: #### D DAVIDSON, MG, PHOS, CMP, LIPID, URIC #### [facility] [address] [place] [address] Dr. Sarmad Patino Lymphocytes/100 WBC (Bld) 15.4 % Critically low 20.5-60.0 [facility] Comment on above: Performed By: #### D DAVIDSON, MG, PHOS, CMP, LIPID, URIC #### [facility] [address] [place] [address] Dr. Sarmad Patino MANUAL DIFF REQ NO Normal [facility] Comment on above: Performed By: #### D DAVIDSON, MG, PHOS, CMP, LIPID, URIC #### [facility] [address] [place] [address] Dr. Sarmad Patino MCH (RBC) [Entitic mass] 29.1 pg Normal 26.7-34.0 [facility] Comment on above: Performed By: #### D DAVIDSON, MG, PHOS, CMP, LIPID, URIC #### [facility] [address] [place] [address] Dr. Sarmad Patino MCHC (RBC) [Mass/Vol] 33.1 g/dL Normal 29.9-35.2 [facility] Comment on above: Performed By: #### D DAVIDSON, MG, PHOS, CMP, LIPID, URIC #### [facility] [address] [place] [address] Dr. Sarmad Patino MCV (RBC) [Entitic vol] 88.0 fL Normal 81.0-99.0 [facility] Comment on above: Performed By: #### D DAVIDSON, MG, PHOS, CMP, LIPID, URIC #### [facility] [address] [place] [address] Dr. Sarmad Patino MONO # 0.9 103/ul Critically high 0.3-0.8 [facility] Comment on above: Performed By: #### D DAVIDSON, MG, PHOS, CMP, LIPID, URIC #### [facility] [address] [place] [address] Dr. Sarmad Patino Monocytes/100 WBC (Bld) 10.2 % Normal 1.7-12.0 [facility] Comment on above: Performed By: #### D DAVIDSON, MG, PHOS, CMP, LIPID, URIC #### [facility] [address] [place] [address] Dr. Sarmad Patino NEUT # 6.1 103/ul Normal 1.4-6.5 [facility] Comment on above: Performed By: #### D DAVIDSON, MG, PHOS, CMP, LIPID, URIC #### [facility] [address] [place] [address] Dr. Sarmad Patino Neutrophils/100 WBC (Bld) 72.4 % Normal 43.0-75.0 [facility] Comment on above: Performed By: #### D DAVIDSON, MG, PHOS, CMP, LIPID, URIC #### [facility] [address] [address] [address] Sarmad Patino Platelet mean volume (Bld) [Entitic vol] 11.1 fL Normal 9.5-13.5 [facility] Comment on above: Performed By: #### D DAVIDSON, MG, PHOS, CMP, LIPID, URIC #### [facility] [address] [address] [address] Sarmad Patino PLT 213 103/ul Normal 150-450 [facility] Comment on above: Performed By: #### D DAVIDSON, MG, PHOS, CMP, LIPID, URIC #### [facility] [address] [address] [address] Sarmad Patino RBC 5.40 106/ul Normal 4.20-5.40 [facility] Comment on above: Performed By: #### D DAVIDSON, MG, PHOS, CMP, LIPID, URIC #### [facility] [address] [place] [address] Dr. Sarmad Patino WBC 8.4 103/ul Normal 4.0-11.0 [facility] Comment on above: Performed By: #### D DAVIDSON, MG, PHOS, CMP, LIPID, URIC #### [facility] [address] [place] [address] Dr. Sarmad Patino LIPID PROFILEon 10-08-2021 CHOL-HDL RATIO NORM SEE BELOW Normal [facility] Comment on above: Result Comment: 3.3 - 4.4 LOW RISK 4.4 - 7.1 AVERAGE RISK 7.1 - 11.0 MODERATE RISK >11.0 HIGH RISK Performed By: #### D DAVIDSON, MG, PHOS, CMP, LIPID, URIC #### [facility] [address] [place] [address] Dr. Sarmad Patino Cholesterol [Mass/Vol] 155 mg/dL Normal <=200 [facility] Comment on above: Performed By: #### D DAVIDSON, MG, PHOS, CMP, LIPID, URIC #### [facility] [address] [place] [address] Dr. Sarmad Patino Cholesterol in HDL [Mass/Vol] 49 mg/dL Normal 40-60 [facility] Comment on above: Performed By: #### D DAVIDSON, MG, PHOS, CMP, LIPID, URIC #### [facility] [address] [address] [address] Sarmad Patino Cholesterol in LDL [Mass/Vol] 73.8 mg/dL Normal [facility] Comment on above: Performed By: #### D DAVIDSON, MG, PHOS, CMP, LIPID, URIC #### [facility] [address] [address] [address] Sarmad Patino Cholesterol.total/Cho lesterol in HDL [Mass ratio] 3.2 {ratio} Normal [facility] Comment on above: Performed By: #### D DAVIDSON, MG, PHOS, CMP, LIPID, URIC #### [facility] [address] [address] [address] Sarmad Patino HDL NORMAL > or = 60 mg/dl - LO W CARDIOVASCULAR RISK <40 mg/dl - HIGH CARDIOVASCULAR RISK Normal [facility] Comment on above: Performed By: #### D DAVIDSON, MG, PHOS, CMP, LIPID, URIC #### [facility] [address] [address] [address] Sarmad Patino LDL CALC NORMAL SEE BELOW Normal [facility] Comment on above: Result Comment: <100 mg/dl OPTIMAL 100 - 129 mg/dl NEAR OR ABOVE OPTIMAL 130 - 159 mg/dl BORDERLINE HIGH 160 - 189 mg/dl HIGH >190 mg/dl VERY HIGH Performed By: #### D DAVIDSON, MG, PHOS, CMP, LIPID, URIC #### [facility] [address] [address] [address] Sarmad Patino Triglyceride [Mass/Vol] 161 mg/dL Critically high <=150 [facility] Comment on above: Performed By: #### D DAVIDSON, MG, PHOS, CMP, LIPID, URIC #### [facility] [address] [address] [address] Sarmad Patino VLDL CALC 32.2 mg/dL Normal [facility] Comment on above: Performed By: #### D DAVIDSON, MG, PHOS, CMP, LIPID, URIC #### [facility] [address] [address] [address] Sarmad Patino MAGNESIUMon 10-08-2021 Magnesium [Mass/Vol] 1.6 mg/dL Critically low 1.8-2.4 [facility] Comment on above: Performed By: #### U JUVE, LIPID, MG, CMP, DBIL, PHOS #### [facility] [address] [address] [address] Sarmad Patino PHOSPHORUSon 10-08-2021 Phosphate [Mass/Vol] 3.5 mg/dL Normal 2.6-4.7 [facility] Comment on above: Performed By: #### U JUVE, LIPID, MG, CMP, DBIL, PHOS #### [facility] [address] [address] [address] Sarmad Patino PROF 14(COMP METB)on 022 Albumin [Mass/Vol] 3.6 g/dL Normal 3.4-5.0 [facility] Comment on above: Performed By: #### D DAIVDSON, MG, PHOS, CMP, LIPID, URIC #### [facility] [address] [place] [address] Dr. Samrad Patino Albumin/Globulin [Mass ratio] 0.9 {ratio} Normal [facility] Comment on above: Performed By: #### D DAVIDSON, MG, PHOS, CMP, LIPID, URIC #### [facility] [address] [place] [address] Dr. Sarmad Patino ALP [Catalytic activity/Vol] 150 U/L Critically high 46-116 [facility] Comment on above: Performed By: #### D DAVIDSON, MG, PHOS, CMP, LIPID, URIC #### [facility] [address] [address] [address] Sarmad Patino ALT [Catalytic activity/Vol] 21 U/L Normal 14-59 [facility] Comment on above: Performed By: #### D DAVIDSON, MG, PHOS, CMP, LIPID, URIC #### [facility] [address] [address] [address] Sarmad Patino Anion gap [Moles/Vol] 14.0 mmol/L Normal [facility] Comment on above: Performed By: #### D DAVIDSON, MG, PHOS, CMP, LIPID, URIC #### [facility] [address] [address] [address] Sarmad Patino AST [Catalytic activity/Vol] 13 U/L Critically low 15-37 [facility] Comment on above: Performed By: #### D DAVIDSON, MG, PHOS, CMP, LIPID, URIC #### [facility] [address] [address] [address] Sarmad Patino Bilirubin [Mass/Vol] 0.5 mg/dL Normal 0.2-1.0 [facility] Comment on above: Performed By: #### D DAVIDSON, MG, PHOS, CMP, LIPID, URIC #### [facility] [address] [place] [address] Dr. Sarmad Patino Calcium [Mass/Vol] 9.8 mg/dL Normal 8.5-10.1 [facility] Comment on above: Performed By: #### D DAVIDSON, MG, PHOS, CMP, LIPID, URIC #### [facility] [address] [place] [address] Dr. Sarmad Patino Chloride [Moles/Vol] 105 mmol/L Normal 98-107 [facility] Comment on above: Performed By: #### D DAVIDSON, MG, PHOS, CMP, LIPID, URIC #### [facility] [address] [place] [address] Dr. Sarmad Patino CO2 [Moles/Vol] 25.9 mmol/L Normal 21.0-32.0 [facility] Comment on above: Performed By: #### D DAVIDSON, MG, PHOS, CMP, LIPID, URIC #### [facility] [address] [place] [address] Dr. Sarmad Patino Creatinine [Mass/Vol] 0.81 mg/dL Normal 0.55-1.02 [facility] Comment on above: Performed By: #### D DAVIDSON, MG, PHOS, CMP, LIPID, URIC #### [facility] [address] [place] [address] Dr. Sarmad Patino EGFR-AF CZECH >60 Normal >=60 [facility] Comment on above: Performed By: #### D DAVIDSON, MG, PHOS, CMP, LIPID, URIC #### [facility] [address] [address] [address] Sarmad Patino EGFR-NON AF CZECH >60 Normal >=60 [facility] Comment on above: Performed By: #### D DAVIDSON, MG, PHOS, CMP, LIPID, URIC #### [facility] [address] [address] [address] Sarmad Patino Globulin (S) [Mass/Vol] 3.8 g/dL Normal [facility] Comment on above: Performed By: #### D DAVIDSON, MG, PHOS, CMP, LIPID, URIC #### [facility] [address] [address] [address] Sarmad Patino Glucose [Mass/Vol] 101 mg/dL Normal 74-106 [facility] Comment on above: Performed By: #### D DAVIDSON, MG, PHOS, CMP, LIPID, URIC #### [facility] [address] [address] [address] Sarmad Patino Potassium [Moles/Vol] 3.9 mmol/L Normal 3.5-5.1 [facility] Comment on above: Performed By: #### D DAVIDSON, MG, PHOS, CMP, LIPID, URIC #### [facility] [address] [address] [address] Sarmad Patino Protein [Mass/Vol] 7.4 g/dL Normal 6.4-8.2 [facility] Comment on above: Performed By: #### D DAVIDSON, MG, PHOS, CMP, LIPID, URIC #### [facility] [address] [address] [address] Sarmad Patino Sodium [Moles/Vol] 141 mmol/L Normal 136-145 [facility] Comment on above: Performed By: #### D DAVIDSON, MG, PHOS, CMP, LIPID, URIC #### [facility] [address] [address] [address] Sarmad Patino Urea nitrogen [Mass/Vol] 18.0 mg/dL Normal 7.0-18.0 [facility] Comment on above: Performed By: #### D DAVIDSON, MG, PHOS, CMP, LIPID, URIC #### [facility] [address] [address] [address] Sarmad Patino Urea nitrogen/Creatinine [Mass ratio] 22.2 mg/mg Normal [facility] Comment on above: Performed By: #### D DAVIDSON, MG, PHOS, CMP, LIPID, URIC #### [facility] [address] [address] [address] Sarmad Patino URIC ACID SERUMon 10-08-2021 Urate [Mass/Vol] 4.7 mg/dL Normal 2.6-6.0 [facility] Comment on above: Performed By: #### D DAVIDSON, MG, PHOS, CMP, LIPID, URIC #### [facility] [address] [address] [address] Sarmad Patino EVEROLIMU, WHOLE BLOODon EVEROLIMUS 8.0 ng/mL Normal 3.0-8.0 [facility] Comment on above: Result Comment: Perf ormed by LC-MS/MS technology. Performed By: #### U JUVE, LIPID, MG, CMP, DBIL, PHOS #### [facility] [address] [address] [address] Sarmad Patino FK506 (TACROLIMUS) WHOLE BLO ODon 09-14-2021 Tacrolimus (FK506), Blood 9.3 ng/mL Normal 2.0-20.0 [facility] Comment on above: Result Comment: Trou gh (immediately following transplant) 15.0 . Trough (steady state, 2 weeks or more after transplant): 3.0 - 8.0 . Performed by LC-MS/MS technology. Performed By: #### U JUVE, LIPID, MG, CMP, DBIL, PHOS #### [facility] [address] [address] [address] Sarmad Patino BK VIRUS PCR QUANTon 022 BKV DNA QUANT PCR PLASMA Negative Normal Negative [facility] Comment on above: Result Comment: No B K DNA detected. . The linear range of the assay is 22 - 100,000,000 IU/mL. Performed By: #### D DAVIDSON, MG, PHOS, CMP, LIPID, URIC #### [facility] [address] [address] [address] Sarmad Patino Log10 BKV DNA Plasma Normal [facility] Comment on above: Performed By: #### D DAVIDSON, MG, PHOS, CMP, LIPID, URIC #### [facility] [address] [address] [address] Sarmad Patino BILIRUBIN CONJUGATED (DIRECT )on 09-10-2021 BILI, CONJUGATED 0.1 mg/dL Normal 0.0-0.2 [facility] Comment on above: Performed By: #### D DAVIDSON, MG, PHOS, CMP, LIPID, URIC #### [facility] [address] [address] [address] Sarmad Patino CBC AUTO DIFFon 09-10-2021 BASO # 0.0 103/ul Normal 0.0-0.1 [facility] Comment on above: Performed By: #### D DAVIDSON, MG, PHOS, CMP, LIPID, URIC #### [facility] [address] [place] [address] Dr. Sarmad Patino Basophils/100 WBC (Bld) 0.1 % Critically low 0.2-2.0 [facility] Comment on above: Performed By: #### D DAVIDSON, MG, PHOS, CMP, LIPID, URIC #### [facility] [address] [place] [address] Dr. Sarmad Patino EO # 0.2 103/ul Normal 0.0-0.7 [facility] Comment on above: Performed By: #### D DAVIDSON, MG, PHOS, CMP, LIPID, URIC #### [facility] [address] [place] [address] Dr. Sarmad Patino Eosinophils/100 WBC (Bld) 2.3 % Normal 0.9-7.0 [facility] Comment on above: Performed By: #### D DAVIDSON, MG, PHOS, CMP, LIPID, URIC #### [facility] [address] [place] [address] Dr. Sarmad Patino Erythrocyte distribution width (RBC) [Ratio] 13.6 % Normal 11.0-15.0 [facility] Comment on above: Performed By: #### D DAVIDSON, MG, PHOS, CMP, LIPID, URIC #### [facility] [address] [place] [address] Dr. Sarmad Patino Hematocrit (Bld) [Volume fraction] 45.1 % Normal 36.0-48.0 [facility] Comment on above: Performed By: #### D DAVIDSON, MG, PHOS, CMP, LIPID, URIC #### [facility] [address] [place] [address] Dr. Sarmad Patino Hemoglobin (Bld) [Mass/Vol] 14.7 g/dL Normal 12.0-16.0 [facility] Comment on above: Performed By: #### D DAVIDSON, MG, PHOS, CMP, LIPID, URIC #### [facility] [address] [place] [address] Dr. Sarmad Patino IG # 0.03 10e3/ul Normal 0.00-0.03 [facility] Comment on above: Performed By: #### D DAVIDSON, MG, PHOS, CMP, LIPID, URIC #### [facility] [address] [place] [address] Dr. Sarmad Patino IG % 0.4 % Normal 0.0-0.5 [facility] Comment on above: Performed By: #### D DAVIDSON, MG, PHOS, CMP, LIPID, URIC #### [facility] [address] [place] [address] Dr. Sarmad Patino LYMPH # 1.3 103/ul Normal 1.2-3.8 [facility] Comment on above: Performed By: #### D DAVIDSON, MG, PHOS, CMP, LIPID, URIC #### [facility] [address] [place] [address] Dr. Sarmad Patino Lymphocytes/100 WBC (Bld) 18.9 % Critically low 20.5-60.0 [facility] Comment on above: Performed By: #### D DAVIDSON, MG, PHOS, CMP, LIPID, URIC #### [facility] [address] [place] [address] Dr. Sarmad Patino MANUAL DIFF REQ NO Normal [facility] Comment on above: Performed By: #### D DAVIDSON, MG, PHOS, CMP, LIPID, URIC #### [facility] [address] [place] [address] Dr. Sarmad Patino MCH (RBC) [Entitic mass] 29.0 pg Normal 26.7-34.0 [facility] Comment on above: Performed By: #### D DAVIDSON, MG, PHOS, CMP, LIPID, URIC #### [facility] [address] [place] [address] Dr. Sarmad Patino MCHC (RBC) [Mass/Vol] 32.6 g/dL Normal 29.9-35.2 [facility] Comment on above: Performed By: #### D DAVIDSON, MG, PHOS, CMP, LIPID, URIC #### [facility] [address] [place] [address] Dr. Sarmad Patino MCV (RBC) [Entitic vol] 89.0 fL Normal 81.0-99.0 [facility] Comment on above: Performed By: #### D DAVIDSON, MG, PHOS, CMP, LIPID, URIC #### [facility] [address] [place] [address] Dr. Sarmad Patino MONO # 0.8 103/ul Normal 0.3-0.8 [facility] Comment on above: Performed By: #### D DAVIDSON, MG, PHOS, CMP, LIPID, URIC #### [facility] [address] [place] [address] Dr. Sarmad Patino Monocytes/100 WBC (Bld) 11.9 % Normal 1.7-12.0 [facility] Comment on above: Performed By: #### D DAVIDSON, MG, PHOS, CMP, LIPID, URIC #### [facility] [address] [place] [address] Dr. Sarmad Patino NEUT # 4.6 103/ul Normal 1.4-6.5 [facility] Comment on above: Performed By: #### D DAVIDSON, MG, PHOS, CMP, LIPID, URIC #### [facility] [address] [place] [address] Dr. Sarmad Patino Neutrophils/100 WBC (Bld) 66.4 % Normal 43.0-75.0 [facility] Comment on above: Performed By: #### D DAVIDSON, MG, PHOS, CMP, LIPID, URIC #### [facility] [address] [address] [address] Sarmad Patino Platelet mean volume (Bld) [Entitic vol] 10.6 fL Normal 9.5-13.5 [facility] Comment on above: Performed By: #### D DAVIDSON, MG, PHOS, CMP, LIPID, URIC #### [facility] [address] [address] [address] Sarmad Patino PLT 233 103/ul Normal 150-450 [facility] Comment on above: Performed By: #### D DAVIDSON, MG, PHOS, CMP, LIPID, URIC #### [facility] [address] [place] [address] Dr. Sarmad Patino RBC 5.07 106/ul Normal 4.20-5.40 [facility] Comment on above: Performed By: #### D DAVIDSON, MG, PHOS, CMP, LIPID, URIC #### [facility] [address] [place] [address] Dr. Sarmad Patino WBC 6.9 103/ul Normal 4.0-11.0 [facility] Comment on above: Performed By: #### D DAVIDSON, MG, PHOS, CMP, LIPID, URIC #### [facility] [address] [place] [address] Dr. Sarmad Patino GLYCOHEMOGLOBIN A1Con 2021 ADA RECOMMENDATION SEE BELOW Normal [facility] Comment on above: Result Comment: ADA RECOMMENDED LIMIT 4.0 - 6.0 ADA THERAPEUTIC TARGET < 7.0 ACTION SUGGESTED > 7.0 Performed By: #### D DAVIDSON, MG, PHOS, CMP, LIPID, URIC #### [facility] [address] [place] [address] Dr. Sarmad Patino Glucose [Mass/Vol] 120 mg/dL Normal [facility] Comment on above: Performed By: #### D DAVIDSON, MG, PHOS, CMP, LIPID, URIC #### [facility] [address] [place] [address] Dr. Sarmad Patino HbA1c (Bld) [Mass fraction] 5.8 % Normal 4.5-6.2 [facility] Comment on above: Performed By: #### D DAVIDSON, MG, PHOS, CMP, LIPID, URIC #### [facility] [address] [address] [address] Sarmad Patino LIPID PROFILEon 09-10-2021 CHOL-HDL RATIO NORM SEE BELOW Normal [facility] Comment on above: Result Comment: 3.3 - 4.4 LOW RISK 4.4 - 7.1 AVERAGE RISK 7.1 - 11.0 MODERATE RISK >11.0 HIGH RISK Performed By: #### D DAVIDSON, MG, PHOS, CMP, LIPID, URIC #### [facility] [address] [address] [address] Sarmad Patino Cholesterol [Mass/Vol] 150 mg/dL Normal <=200 [facility] Comment on above: Performed By: #### D DAVIDSON, MG, PHOS, CMP, LIPID, URIC #### [facility] [address] [address] [address] Sarmad Patino Cholesterol in HDL [Mass/Vol] 47 mg/dL Normal 40-60 [facility] Comment on above: Performed By: #### D DAVIDSON, MG, PHOS, CMP, LIPID, URIC #### [facility] [address] [address] [address] Sarmad Patino Cholesterol in LDL [Mass/Vol] 78.4 mg/dL Normal [facility] Comment on above: Performed By: #### D DAVIDSON, MG, PHOS, CMP, LIPID, URIC #### [facility] [address] [address] [address] Sarmad Patino Cholesterol.total/Cho lesterol in HDL [Mass ratio] 3.2 {ratio} Normal [facility] Comment on above: Performed By: #### D DAVIDSON, MG, PHOS, CMP, LIPID, URIC #### [facility] [address] [place] [address] Dr. Sarmad Patino HDL NORMAL > or = 60 mg/dl - LO W CARDIOVASCULAR RISK <40 mg/dl - HIGH CARDIOVASCULAR RISK Normal [facility] Comment on above: Performed By: #### D DAVIDSON, MG, PHOS, CMP, LIPID, URIC #### [facility] [address] [address] [address] Sarmad Patino LDL CALC NORMAL SEE BELOW Normal [facility] Comment on above: Result Comment: <100 mg/dl OPTIMAL 100 - 129 mg/dl NEAR OR ABOVE OPTIMAL 130 - 159 mg/dl BORDERLINE HIGH 160 - 189 mg/dl HIGH >190 mg/dl VERY HIGH Performed By: #### D DAVIDSON, MG, PHOS, CMP, LIPID, URIC #### [facility] [address] [address] [address] Sarmad Patino Triglyceride [Mass/Vol] 123 mg/dL Normal <=150 [facility] Comment on above: Performed By: #### D DAVIDSON, MG, PHOS, CMP, LIPID, URIC #### [facility] [address] [address] [address] Sarmad Patino VLDL CALC 24.6 mg/dL Normal [facility] Comment on above: Performed By: #### D DAVIDSON, MG, PHOS, CMP, LIPID, URIC #### [facility] [address] [address] [address] Sarmad Patino MAGNESIUMon 09-10-2021 Magnesium [Mass/Vol] 1.5 mg/dL Critically low 1.8-2.4 [facility] Comment on above: Performed By: #### D DAVIDSON, MG, PHOS, CMP, LIPID, URIC #### [facility] [address] [address] [address] Sarmad Patino PHOSPHORUSon 09-10-2021 Phosphate [Mass/Vol] 3.8 mg/dL Normal 2.6-4.7 [facility] Comment on above: Performed By: #### D DAVIDSON, MG, PHOS, CMP, LIPID, URIC #### [facility] [address] [place] [address] Dr. Sarmad Patino PROF 14(COMP METB)on 022 Albumin [Mass/Vol] 3.4 g/dL Normal 3.4-5.0 [facility] Comment on above: Performed By: #### D DAVIDSON, MG, PHOS, CMP, LIPID, URIC #### [facility] [address] [place] [address] Dr. Sarmad Patino Albumin/Globulin [Mass ratio] 0.9 {ratio} Normal [facility] Comment on above: Performed By: #### D DAVIDSON, MG, PHOS, CMP, LIPID, URIC #### [facility] [address] [place] [address] Dr. Sarmad Patino ALP [Catalytic activity/Vol] 143 U/L Critically high 46-116 [facility] Comment on above: Performed By: #### D DAVIDSON, MG, PHOS, CMP, LIPID, URIC #### [facility] [address] [place] [address] Dr. Sarmad Patino ALT [Catalytic activity/Vol] 19 U/L Normal 14-59 [facility] Comment on above: Performed By: #### D DAVIDSON, MG, PHOS, CMP, LIPID, URIC #### [facility] [address] [place] [address] Dr. Sarmad Patino Anion gap [Moles/Vol] 13.4 mmol/L Normal [facility] Comment on above: Performed By: #### D DAVIDSON, MG, PHOS, CMP, LIPID, URIC #### [facility] [address] [place] [address] Dr. Sarmad Patino AST [Catalytic activity/Vol] 24 U/L Normal 15-37 [facility] Comment on above: Performed By: #### D DAVIDSON, MG, PHOS, CMP, LIPID, URIC #### [facility] [address] [place] [address] Dr. Sarmad Patino Bilirubin [Mass/Vol] 0.4 mg/dL Normal 0.2-1.0 [facility] Comment on above: Performed By: #### D DAVIDSON, MG, PHOS, CMP, LIPID, URIC #### [facility] [address] [place] [address] Dr. Sarmad Patino Calcium [Mass/Vol] 9.3 mg/dL Normal 8.5-10.1 [facility] Comment on above: Performed By: #### D DAVIDSON, MG, PHOS, CMP, LIPID, URIC #### [facility] [address] [address] [address] Sarmad Patino Chloride [Moles/Vol] 106 mmol/L Normal 98-107 [facility] Comment on above: Performed By: #### D DAVIDSON, MG, PHOS, CMP, LIPID, URIC #### [facility] [address] [address] [address] Sarmad Patino CO2 [Moles/Vol] 25.5 mmol/L Normal 21.0-32.0 [facility] Comment on above: Performed By: #### D DAVIDSON, MG, PHOS, CMP, LIPID, URIC #### [facility] [address] [address] [address] Sarmad Patino Creatinine [Mass/Vol] 0.85 mg/dL Normal 0.55-1.02 [facility] Comment on above: Performed By: #### D DAVIDSON, MG, PHOS, CMP, LIPID, URIC #### [facility] [address] [place] [address] Dr. Sarmad Patino EGFR-AF CZECH >60 Normal >=60 [facility] Comment on above: Performed By: #### D DAVIDSON, MG, PHOS, CMP, LIPID, URIC #### [facility] [address] [place] [address] Dr. Sarmad Patino EGFR-NON AF CZECH >60 Normal >=60 [facility] Comment on above: Performed By: #### D DAVIDSON, MG, PHOS, CMP, LIPID, URIC #### [facility] [address] [address] [address] Sarmad Patino Globulin (S) [Mass/Vol] 3.8 g/dL Normal [facility] Comment on above: Performed By: #### D DAVIDSON, MG, PHOS, CMP, LIPID, URIC #### [facility] [address] [place] [address] Dr. Sarmad Patino Glucose [Mass/Vol] 100 mg/dL Normal 74-106 [facility] Comment on above: Performed By: #### D DAVIDSON, MG, PHOS, CMP, LIPID, URIC #### [facility] [address] [place] [address] Dr. Sarmad Patino Potassium [Moles/Vol] 3.9 mmol/L Normal 3.5-5.1 The [facility] Comment on above: Performed By: #### D DAVIDSON, MG, PHOS, CMP, LIPID, URIC #### [facility] [address] [address] [address] Sarmad Patino Protein [Mass/Vol] 7.2 g/dL Normal 6.4-8.2 [facility] Comment on above: Performed By: #### D DAVIDSON, MG, PHOS, CMP, LIPID, URIC #### [facility] [address] [place] [address] Dr. Sarmad Patino Sodium [Moles/Vol] 141 mmol/L Normal 136-145 [facility] Comment on above: Performed By: #### D DAVIDSON, MG, PHOS, CMP, LIPID, URIC #### [facility] [address] [place] [address] Dr. Sarmad Patino Urea nitrogen [Mass/Vol] 16.0 mg/dL Normal 7.0-18.0 The [facility] Comment on above: Performed By: #### D DAVIDSON, MG, PHOS, CMP, LIPID, URIC #### [facility] [address] [place] [address] Dr. Sarmad Patino Urea nitrogen/Creatinine [Mass ratio] 18.8 mg/mg Normal The [facility] Comment on above: Performed By: #### D DAVIDSON, MG, PHOS, CMP, LIPID, URIC #### [facility] [address] [place] [address] Dr. Sarmad Patino URIC ACID SERUMon 09-10-2021 Urate [Mass/Vol] 4.8 mg/dL Normal 2.6-6.0 [facility] Comment on above: Performed By: #### D DAVIDSON, MG, PHOS, CMP, LIPID, URIC #### [facility] [address] [place] [address] Dr. Sarmad Patino Urinalysis - AUTOMATEDon Appearance (U) cloudy [employer] Other Bilirubin Ql (U) Negative [employer] Other Color (U) pale yellow [employer] Other Glucose Ql (U) Negative [employer] Other Hemoglobin Ql (U) moderate [employer] Other Ketones Ql (U) Negative [employer] Other Leukocyte esterase Test strip Ql (U) moderate [employer] Other Nitrite Ql (U) Negative [employer] Other pH (U) 7.0 [pH] [employer] Other Protein Ql (U) Negative [employer] Other Specific gravity (U) [Rel density] 1.010 [employer] Other Urobilinogen (U) [Mass/Vol] 0.2 mg/dL [employer] Other Urinalysis - AUTOMATED [employer] Other Urine Cultureon 08-14-2021 Urine Culture 100,000 [employer] Other Urine Culture <16 Susceptible [employer] Other Urine Culture >16 Resistant [employer] Other Urine Culture <4 Susceptible [employer] Other Urine Culture <2 Susceptible [employer] Other Urine Culture <1 Susceptible [employer] Other Urine Culture <0.5 Susceptible [employer] Other Urine Culture <32 Susceptible [employer] Other Urine Culture <2/38 Susceptible [employer] Other Bacteria identified Cx Nom (U) Reason for Exam Dysuria Urine ORGANISM: Klebsiella pneumoniae (O:KLEPNE) [place] Count 100,000 Aerobic SHYLA Charge (NUC86) ---- [...] RESISTANT TO ALL B-LACTAM DRUGS. PERFORMED BY: [place] [address] PATHOLOGIST INSPECTION SUPERVISOR LOVELY COLE M.D. Normal [facility] Comment on above: Performed By: #### C UU #### [address] *URINE CULTUREon 12-31-2017 Bacteria identified in Urine by Culture Clinical Report: (D) Specimen: URINE Collected: 12/31/2017 13:40 Status: Final Last Updated: 01/04/2018 12:38 ISO (Final) Diphtheroids >100,000 Cfu/Ml 2 Morphologies ISO (Final) Aerococcus urinae 50,000 - 100,000 Cfu/mL Result changed by ISCH[facility] on 01/04/2018 12:38. The previous result was: ISO (Prelim) Normal [facility] Comment on above: Performed By: #### 4 1000, 99787, 56488, 51999, 29246, 42397 ####[facility] CBC W/DIFFon 12-25-2017 ABS BASOPHILS 0.0 10*3/uL Normal 0.0-0.2 [facility] Comment on above: Performed By: #### 5 0103 ####[facility] ABS IMM GRANS 0.0 10*3/uL Normal 0.0-0.2 [facility] Comment on above: Performed By: #### 5 0103 ####[address] ABS NEUTROPHILS 5.0 10*3/uL Normal 1.6-7.6 The [facility] Comment on above: Performed By: #### 5 0103 ####[facility] Basophils Auto #/vol (Bld) 0.1 % Normal 0.0-1.0 [facility] Comment on above: Performed By: #### 5 0103 ####[facility] Eosinophils Auto #/vol (Bld) 0.1 10*3/uL Normal 0.0-0.5 [facility] Comment on above: Performed By: #### 5 0103 ####[address] Eosinophils/100 WBC Auto (Bld) 1.6 % Normal 0.0-6.0 [facility] Comment on above: Performed By: #### 5 0103 ####[facility] Erythrocyte distribution width Auto Ratio (RBC) 14.6 % Normal 11.5-15.0 [facility] Comment on above: Performed By: #### 5 0103 ####[facility] [facility].[address] Hematocrit Auto Volume Fraction (Bld) 44.9 % Normal 36.0-45.0 [facility] Comment on above: Performed By: #### 5 0103 ####[facility] [facility].[address] Hemoglobin mass conc (Bld) 14.9 g/dL Normal 12.0-15.0 [facility] Comment on above: Performed By: #### 3 ####[facility] IMMATURE GRANS 0.4 % Normal 0.0-1.0 [facility] Comment on above: Performed By: #### 3 ####[facility] Lymphocytes Auto #/vol (Bld) 1.0 10*3/uL Low 1.2-4.0 [facility] Comment on above: Performed By: #### 5 3 ####[facility] [facility].[address] Lymphocytes/100 WBC Auto (Bld) 14.9 % Low 20.0-45.0 [facility] Comment on above: Performed By: #### 3 ####[facility] MCH Auto Entitic mass (RBC) 28.8 pg Normal 27.0-33.0 [facility] Comment on above: Performed By: #### 3 ####[facility]3000 [facility].[address] MCHC Auto mass conc (RBC) 33.2 g/dL Normal 32.0-35.0 [facility] Comment on above: Performed By: #### 5 0103 ####[facility] MCV Auto Entitic volume (RBC) 86.7 fL Normal 82.0-98.0 [facility] Comment on above: Performed By: #### 0103 ####[facility] Monocytes Auto #/vol (Bld) 0.7 10*3/uL Normal 0.1-1.0 [facility] Comment on above: Performed By: #### 102 ####[facility] [facility].[address] MONOS 10.6 % Normal 5.0-12.0 [facility] Comment on above: Performed By: #### 102 ####[facility] Neutrophils/100 WBC Auto (Bld) 72.4 % High 40.0-72.0 [facility] Comment on above: Performed By: #### 102 ####[facility] [facility].[address] Nucleated RBC/100 WBC Ratio (Bld) 0 % Normal 0-0 [facility] Comment on above: Performed By: #### 102 ####[facility] PLAT CNT 203 10*3/uL Normal 150-400 [facility] Comment on above: Performed By: #### 102 ####[facility] RBC Auto #/vol (Bld) 5.18 10*6/uL High 3.80-5.00 Th e [facility] Comment on above: Performed By: #### 5 0103 ####[facility] [facility].[address] WBC Auto #/vol (Bld) 6.90 10*3/uL Normal 4.00-10.60 Th e [facility] Comment on above: Performed By: #### 5 0103 ####[facility] [facility].[address] COMP METABOLIC PANELon 12-25 Albumin mass conc 4.3 g/dL Normal 3.5-5.7 The [facility] Comment on above: Performed By: #### 4 1000, 57525, 63956, 06928, 89521, 10227 ####[facility] [facility].[address] ALKALINE PHOSPH 118 IU/L High 34-104 [facility] Comment on above: Performed By: #### 4 1000, 60996, 77621, 97714, 69247, 42077 ####[facility] [facility].[address] ALT enzyme act/vol 11 U/L Normal 7-52 The [facility] Comment on above: Performed By: #### 4 1000, 96107, 54730, 16086, 65110, 12391 ####[facility] [facility].[address] AST enzyme act/vol 17 U/L Normal 13-39 The [facility] Comment on above: Performed By: #### 4 1000, 12164, 27960, 56383, 09784, 24888 ####[facility] Bilirubin mass conc 0.4 mg/dL Normal 0.3-1.0 [facility] Comment on above: Performed By: #### 4 1000, 73950, 31313, 22046, 68946, 83303 ####[facility] [place] [address], [place] Calcium mass conc 9.8 mg/dL Normal 8.6-10.3 [facility] Comment on above: Performed By: #### 4 1000, 17247, 94992, 47612, 15813, 30505 ####[facility] [place] [address], [place] Chloride molar conc 104 mmol/L Normal 98-107 [facility] Comment on above: Performed By: #### 4 1000, 70040, 03653, 18035, 76280, 61221 ####[facility] [place] [address], [place] CO2 molar conc 27 mmol/L Normal 21-31 The [facility] Comment on above: Performed By: #### 4 1000, 79410, 23530, 75547, 33459, 01657 ####[facility] [place] [address], [place] Creatinine mass conc 0.76 mg/dL Normal 0.60-1.20 [facility] Comment on above: Performed By: #### 4 1000, 75383, 99985, 01876, 91622, 46173 ####[facility] [place] [address], [place] GFR/1.73 sq M predicted among blacks MDRD vol rate/area (S/P/Bld) mL/min/{1.73_m2} Normal >60 The [facility] Comment on above: Performed By: #### 4 1000, 15013, 57436, 71798, 92815, 33667 ####[facility] [place] [address], [place] GFR/1.73 sq M predicted among non-blacks MDRD vol rate/area (S/P/Bld) mL/min/{1.73_m2} Normal >60 The [facility] Comment on above: Performed By: #### 4 1000, 72830, 89929, 97245, 03430, 77248 ####[facility] [place] [address], [facility] Glucose mass conc 94 mg/dL Normal 70-100 The [facility] Comment on above: Performed By: #### 4 1000, 69380, 63855, 10674, 85719, 92481 ####[facility] [place] [address], [facility] Potassium molar conc 3.9 mmol/L Normal 3.5-5.1 [facility] Comment on above: Performed By: #### 4 1000, 54487, 64120, 25036, 24332, 11786 ####[facility] [place] [address], [facility] Protein mass conc 7.2 g/dL Normal 6.0-8.3 The [facility] Comment on above: Performed By: #### 4 1000, 74253, 05444, 89440, 32760, 99755 ####[facility] [place] [address], [facility] Sodium molar conc 140 mmol/L Normal 136-145 The [facility] Comment on above: Performed By: #### 4 1000, 54732, 38015, 57966, 17472, 24309 ####[facility] [place] [address], [facility] Urea nitrogen mass conc 15 mg/dL Normal 7-25 [facility] Comment on above: Performed By: #### 4 1000, 57249, 88621, 88699, 58548, 10260 ####[facility] [place] [address], [facility] DIRECT BILIon 12-25-2017 Bilirubin.direct mass conc 0.1 mg/dL Normal 0.0-0.2 [facility] Comment on above: Performed By: #### 4 1000, 78916, 02736, 22409, 51740, 53737 ####[facility] EVEROLIMUS 56768vy 8 EVEROLIMUS 4.7 ng/mL Normal [facility] Comment on above: Result Comment: Ther apeutic [...] the transplantcenter.Test developed and characteristics determined by [facility]. See Compliance Statement B: [facility]/CSPerformed by [facility],[address] [place] [id number] nsv.[facility], Leonid Antonio MD - Lab. Director LIPID PROFILEon 12-25-2017 Cholesterol in HDL mass conc 51 mg/dL Normal 23-92 [facility] Comment on above: Result Comment: Slig ht variation in normal range could be due to gender and/or age.HDL CHOLESTEROL REFERENCE RANGE:20 years and older Cardiovascular Risk> or =60 mg/dL Ewgwushot42 TO 59 mg/dL Low Risk<40 mg/dL High Risk Performed By: #### 4 1083, 58002, 61749, 16044, 74885, 37440 ####[facility] [place] [address], [facility] Cholesterol in LDL mass conc 58 mg/dL Normal 0-130 [facility] Comment on above: Result Comment: LDL IS A CALCULATIONLDL IS ONLY VALID IF THE TRIG IS LESS THAN 400. Performed By: #### 4 5506, 87824, 32737, 37048, 54446, 77985 ####[facility] [place] [address], [facility] Cholesterol mass conc 122 mg/dL Normal 120-200 [facility] Comment on above: Result Comment: CHOL ESTEROL REFERENCE RANGE:20 YEARS AND OLDER CARDIOVASCULAR RISKLess than 200 mg/dl Low Kaey423 to 239 mg/dl Borderline Zowr812 mg/dl and greater High Risk Performed By: #### 4 5506, 20395, 97881, 69780, 88660, 75295 ####[facility] [place] [address], [facility] Cholesterol.total/Cho lesterol in HDL mass ratio 2.4 {ratio} Normal .0-4.5 [facility] Comment on above: Performed By: #### 4 5506, 89321, 89286, 76188, 06331, 67369 ####[facility] [place] [address], [facility] NON-HDL CHOLESTEROL 71 mg/dL Normal [facility] Comment on above: Performed By: #### 4 5506, 04016, 93867, 99332, 07728, 37898 ####[facility] [place] [address], [facility] Triglyceride mass conc 65 mg/dL Normal 40-149 [facility] Comment on above: Result Comment: TRIG LYCERIDE REFERENCE RANGE:20 YEARS AND OLDER CARDIOVASCULAR RISKLESS THAN 150 mg/dl LOW FATS839 TO 199 mg/dl BORDERLINE JEIE678 mg/dl AND GREATER HIGH RISK Performed By: #### 4 5506, 68557, 40665, 79880, 04893, 45823 ####[facility] VLDL CHOL 13 mg/dL Normal 0-40 [facility] Comment on above: Performed By: #### 4 5506, 54736, 55487, 11785, 09231, 11629 ####[facility] [facility] MAGNESIUM BLOODon 12-25-2017 Magnesium mass conc 1.8 mg/dL Low 1.9-2.7 [facility] Comment on above: Performed By: #### 4 1000, 86349, 01806, 08749, 67905, 00052 ####[facility] [facility].[address] PHOSPHORUS BLOODon 8 Phosphate mass conc 3.4 mg/dL Normal 2.5-5.0 [facility] Comment on above: Performed By: #### 4 5506, 53107, 68013, 09682, 42790, 10773 ####[facility] [facility].[address] TACROLIMUSon 12-25-2017 Tacrolimus mass conc (Bld) 6.4 ng/mL Normal 5.0-20.0 [facility] Comment on above: Result Comment: The [employer] Tacrolimus assay is a delayed one-step immunoassayfor the quantitative determination of tacrolimus in human whole bloodusing the chemiluminescent microparticle immunoassay (CMIA) technologywith flexible assay protocols, referred to as Chemiflex. Performed By: #### 4 1000, 19727, 34446, 73537, 46974, 10756 ####[facility] [facility].[address] URIC ACID BLOODon 12-25-2017 Urate mass conc 4.7 mg/dL Normal 2.3-6.6 The [facility] Comment on above: Performed By: #### 4 5506, 22967, 35641, 80788, 89579, 45390 ####[facility] CBC W/DIFFon 10-30-2017 ABS BASOPHILS 0.0 10*3/uL Normal 0.0-0.2 The [facility] Comment on above: Performed By: #### 4 6447, 65394 ####[facility] [place] [address] ABS IMM GRANS 0.0 10*3/uL Normal 0.0-0.2 [facility] Comment on above: Performed By: #### 4 6447, 97284 ####[address] ABS NEUTROPHILS 4.9 10*3/uL Normal 1.6-7.6 The [facility] Comment on above: Performed By: #### 4 6447, 63500 ####[address] Basophils Auto #/vol (Bld) 0.1 % Normal 0.0-1.0 [facility] Comment on above: Performed By: #### 4 6447, 64047 ####[place] [address] Eosinophils Auto #/vol (Bld) 0.1 10*3/uL Normal 0.0-0.5 [facility] Comment on above: Performed By: #### 4 6447, 60481 ####[address] Eosinophils/100 WBC Auto (Bld) 1.4 % Normal 0.0-6.0 [facility] Comment on above: Performed By: #### 4 6447, 74572 ####[address] [address], [place] Erythrocyte distribution width Auto Ratio (RBC) 14.6 % Normal 11.5-15.0 [facility] Comment on above: Performed By: #### 4 9950, 08231 ####[address] Hematocrit Auto Volume Fraction (Bld) 46.8 % High 36.0-45.0 [facility] Comment on above: Performed By: #### 4 9646, 80684 ####[address] Hemoglobin mass conc (Bld) 15.1 g/dL High 12.0-15.0 [facility] Comment on above: Performed By: #### 5 7139, 75335 ####[address] IMMATURE GRANS 0.4 % Normal 0.0-1.0 [facility] Comment on above: Performed By: #### 5 6839, 23435 ####[address] Lymphocytes Auto #/vol (Bld) 1.2 10*3/uL Normal 1.2-4.0 [facility] Comment on above: Performed By: #### 0 3228, 99039 ####[place] [address] Lymphocytes/100 WBC Auto (Bld) 16.6 % Low 20.0-45.0 [facility] Comment on above: Performed By: #### 2 1007, 90469 ####[place] [address] MCH Auto Entitic mass (RBC) 29.0 pg Normal 27.0-33.0 [facility] Comment on above: Performed By: #### 1 2387, 19281 ####[facility] MCHC Auto mass conc (RBC) 32.3 g/dL Normal 32.0-35.0 [facility] Comment on above: Performed By: #### 4 2388, 10737 ####[facility] MCV Auto Entitic volume (RBC) 89.8 fL Normal 82.0-98.0 [facility] Comment on above: Performed By: #### 4 2552, 58183 ####[facility] [facility].[address] Monocytes Auto #/vol (Bld) 0.8 10*3/uL Normal 0.1-1.0 [facility] Comment on above: Performed By: #### 4 7375, 28079 ####[facility] [facility].[address] MONOS 11.9 % Normal 5.0-12.0 [facility] Comment on above: Performed By: #### 1 4725, 34454 ####[facility] [facility].[address] Neutrophils/100 WBC Auto (Bld) 69.6 % Normal 40.0-72.0 [facility] Comment on above: Performed By: #### 4 3334, 97387 ####[facility] [facility].[address] Nucleated RBC/100 WBC Ratio (Bld) 0 % Normal 0-0 [facility] Comment on above: Performed By: #### 2 2141, 53610 ####[facility] [place] [address], [facility] [facility] PLAT CNT 200 10*3/uL Normal 150-400 [facility] Comment on above: Performed By: #### 8 4268, 21231 ####[facility] [place] [address], [facility] RBC Auto #/vol (Bld) 5.21 10*6/uL High 3.80-5.00 Th e [facility] Comment on above: Performed By: #### 4 6447, 04032 ####[facility] [place] [address], [facility] WBC Auto #/vol (Bld) 7.04 10*3/uL Normal 4.00-10.60 Th e [facility] Comment on above: Performed By: #### 4 6447, 60651 ####[facility] COMP METABOLIC PANELon 10-30 Albumin mass conc 4.1 g/dL Normal 3.5-5.7 The [facility] Comment on above: Performed By: #### 4 6447, 66700 ####[facility] ALKALINE PHOSPH 114 IU/L High 34-104 The [facility] Comment on above: Performed By: #### 4 6447, 08049 ####[facility] ALT enzyme act/vol 16 U/L Normal 7-52 [facility] Comment on above: Performed By: #### 4 6447, 74714 ####[facility] AST enzyme act/vol 18 U/L Normal 13-39 [facility] Comment on above: Performed By: #### 4 6447, 48113 ####[facility] [place] [address], [facility] Bilirubin mass conc 0.4 mg/dL Normal 0.3-1.0 The [facility] Comment on above: Performed By: #### 4 1447, 82749 ####[facility] [place] [address], [place] Calcium mass conc 9.7 mg/dL Normal 8.6-10.3 [facility] Comment on above: Performed By: #### 4 4647, 88890 ####[facility] [place] [address], [place] Chloride molar conc 105 mmol/L Normal 98-107 [facility] Comment on above: Performed By: #### 4 2782, 33462 ####[facility] [place] [address], [place] CO2 molar conc 28 mmol/L Normal 21-31 The [facility] Comment on above: Performed By: #### 4 9590, 90910 ####[facility] [place] [address], [place] Creatinine mass conc 0.82 mg/dL Normal 0.60-1.20 [facility] Comment on above: Performed By: #### 4 8996, 14021 ####[facility] [place] [address], [place] GFR/1.73 sq M predicted among blacks MDRD vol rate/area (S/P/Bld) mL/min/{1.73_m2} Normal >60 The [facility] Comment on above: Performed By: #### 4 8106, 82298 ####[facility] [place] [address], [place] GFR/1.73 sq M predicted among non-blacks MDRD vol rate/area (S/P/Bld) mL/min/{1.73_m2} Normal >60 The [facility] Comment on above: Performed By: #### 7 5262, 43855 ####[facility] Glucose mass conc 90 mg/dL Normal 70-100 The [facility] Comment on above: Performed By: #### 4 6447, 07449 ####[facility] Potassium molar conc 4.1 mmol/L Normal 3.5-5.1 The [facility] Comment on above: Performed By: #### 4 6447, 63784 ####[facility] Protein mass conc 6.9 g/dL Normal 6.0-8.3 The [facility] Comment on above: Performed By: #### 4 6447, 94394 ####[facility] Sodium molar conc 138 mmol/L Normal 136-145 The [facility] Comment on above: Performed By: #### 4 6447, 74936 ####[facility] Urea nitrogen mass conc 16 mg/dL Normal 7-25 The [facility] Comment on above: Performed By: #### 4 6447, 72680 ####[facility] DIRECT BILIon 10-30-2017 Bilirubin.direct mass conc 0.0 mg/dL Normal 0.0-0.2 The [facility] Comment on above: Performed By: #### 4 5506, 37506, 34579, 54809, 16557, 70126 ####[facility] EVEROLIMUS 25337td 8 EVEROLIMUS 6.0 ng/mL Normal The [facility] Comment on above: Result Comment: Ther apeutic [...] the transplantcenter.Test developed and characteristics determined by [facility]. See Compliance Statement B: [employer]/CSPerformed by [facility] [employer],[address] [place] [id number] uyk.[employer], Leonid Antonio MD - Lab. Director LIPID PROFILEon 10-30-2017 Cholesterol in HDL mass conc 50 mg/dL Normal 23-92 The [facility] Comment on above: Result Comment: Slig ht variation in normal range could be due to gender and/or age.HDL CHOLESTEROL REFERENCE RANGE:20 years and older Cardiovascular Risk> or =60 mg/dL Ijiuzktuf52 TO 59 mg/dL Low Risk<40 mg/dL High Risk Performed By: #### 4 5506, 35447, 30495, 21708, 41786, 58048 ####[facility] [place] [address], [facility] Cholesterol in LDL mass conc 85 mg/dL Normal 0-130 The [facility] Comment on above: Result Comment: LDL IS A CALCULATIONLDL IS ONLY VALID IF THE TRIG IS LESS THAN 400. Performed By: #### 4 5506, 00109, 43920, 04328, 38842, 96565 ####[facility] [place] [address], [facility] Cholesterol mass conc 152 mg/dL Normal 120-200 The [facility] Comment on above: Result Comment: CHOL ESTEROL REFERENCE RANGE:20 YEARS AND OLDER CARDIOVASCULAR RISKLess than 200 mg/dl Low Jshl246 to 239 mg/dl Borderline Dbvq138 mg/dl and greater High Risk Performed By: #### 4 5506, 60823, 78748, 01286, 65810, 89525 ####[facility] [place] [address], [facility] Cholesterol.total/Cho lesterol in HDL mass ratio 3.0 {ratio} Normal .0-4.5 [facility] Comment on above: Performed By: #### 4 5506, 02592, 42224, 36363, 11526, 92943 ####[facility] [place] [address], [facility] NON-HDL CHOLESTEROL 102 mg/dL Normal The [facility] Comment on above: Performed By: #### 4 5506, 18236, 03641, 10657, 35401, 74302 ####[facility] [place] [address], [facility] Triglyceride mass conc 87 mg/dL Normal 40-149 The [facility] Comment on above: Result Comment: TRIG LYCERIDE REFERENCE RANGE:20 YEARS AND OLDER CARDIOVASCULAR RISKLESS THAN 150 mg/dl LOW PHLE086 TO 199 mg/dl BORDERLINE DGBA166 mg/dl AND GREATER HIGH RISK Performed By: #### 4 5506, 32279, 64192, 35034, 35235, 99983 ####[facility] [place] [address], [facility] VLDL CHOL 17 mg/dL Normal 0-40 The [facility] Comment on above: Performed By: #### 4 5506, 57504, 74860, 85778, 58325, 93076 ####[facility] [place] [address], [facility] MAGNESIUM BLOODon 10-30-2017 Magnesium mass conc 1.9 mg/dL Normal 1.9-2.7 The [facility] Comment on above: Performed By: #### 4 5506, 00428, 31491, 01432, 50896, 83206 ####[facility] PHOSPHORUS BLOODon 8 Phosphate mass conc 3.7 mg/dL Normal 2.5-5.0 The [facility] Comment on above: Performed By: #### 4 5506, 48622, 23423, 00709, 11594, 70453 ####[facility] TACROLIMUSon 10-30-2017 Tacrolimus mass conc (Bld) 7.1 ng/mL Normal 5.0-20.0 The [facility] Comment on above: Result Comment: The [employer] Tacrolimus assay is a delayed one-step immunoassayfor the quantitative determination of tacrolimus in human whole bloodusing the chemiluminescent microparticle immunoassay (CMIA) technologywith flexible assay protocols, referred to as Chemiflex. Performed By: #### 9 9914 ####[facility] URIC ACID BLOODon 10-30-2017 Urate mass conc 4.6 mg/dL Normal 2.3-6.6 The [facility] Comment on above: Performed By: #### 4 5810, 18889 ####[facility] CBC W/DIFFon 10-23-2017 ABS BASOPHILS 0.0 10*3/uL Normal 0.0-0.2 The [facility] Comment on above: Performed By: #### 4 9079, 73473 ####[facility] ABS IMM GRANS 0.1 10*3/uL Normal 0.0-0.2 The [facility] Comment on above: Performed By: #### 4 5547, 33983 ####[facility] [place] [address], [facility] ABS NEUTROPHILS 5.8 10*3/uL Normal 1.6-7.6 The [facility] Comment on above: Performed By: #### 4 4074, 59639 ####[facility] [place] [address], [facility] Basophils Auto #/vol (Bld) 0.2 % Normal 0.0-1.0 The [facility] Comment on above: Performed By: #### 4 6200, 09944 ####[facility] [place] [address], [facility] Eosinophils Auto #/vol (Bld) 0.1 10*3/uL Normal 0.0-0.5 The [facility] Comment on above: Performed By: #### 4 3722, 89545 ####[facility] [place] [address], [facility] Eosinophils/100 WBC Auto (Bld) 0.7 % Normal 0.0-6.0 The [facility] Comment on above: Performed By: #### 4 3020, 10991 ####[facility] Erythrocyte distribution width Auto Ratio (RBC) 14.6 % Normal 11.5-15.0 The [facility] Comment on above: Performed By: #### 4 2385, 84899 ####[facility] [place] [address], [facility] Hematocrit Auto Volume Fraction (Bld) 44.2 % Normal 36.0-45.0 The [facility] Comment on above: Performed By: #### 4 5637, 69096 ####[facility] Hemoglobin mass conc (Bld) 14.2 g/dL Normal 12.0-15.0 The [facility] Comment on above: Performed By: #### 4 4184, 11713 ####[facility] IMMATURE GRANS 1.4 % High 0.0-1.0 The [facility] Comment on above: Performed By: #### 4 9233, 83587 ####[facility] Lymphocytes Auto #/vol (Bld) 2.1 10*3/uL Normal 1.2-4.0 The [facility] Comment on above: Performed By: #### 4 5959, 94274 ####[address] Lymphocytes/100 WBC Auto (Bld) 22.5 % Normal 20.0-45.0 The [facility] Comment on above: Performed By: #### 4 9330, 64784 ####[address] MCH Auto Entitic mass (RBC) 28.5 pg Normal 27.0-33.0 The [facility] Comment on above: Performed By: #### 4 0140, 79695 ####[facility] MCHC Auto mass conc (RBC) 32.1 g/dL Normal 32.0-35.0 The [facility] Comment on above: Performed By: #### 4 7351, 82307 ####[place] [address] MCV Auto Entitic volume (RBC) 88.8 fL Normal 82.0-98.0 The [facility] Comment on above: Performed By: #### 4 1223, 61649 ####[address] [place] [address], [place] Monocytes Auto #/vol (Bld) 1.1 10*3/uL High 0.1-1.0 [facility] Comment on above: Performed By: #### 4 6447, 34304 ####[facility] [place] [address], [facility] MONOS 12.0 % Normal 5.0-12.0 The [facility] Comment on above: Performed By: #### 4 6447, 23677 ####[facility] Neutrophils/100 WBC Auto (Bld) 63.2 % Normal 40.0-72.0 The [facility] Comment on above: Performed By: #### 4 6447, 62477 ####[facility] [facility] Nucleated RBC/100 WBC Ratio (Bld) 0 % Normal 0-0 The [facility] Comment on above: Performed By: #### 4 6447, 78529 ####[facility] [facility].[address] PLAT CNT 241 10*3/uL Normal 150-400 [facility] Comment on above: Performed By: #### 4 6447, 28414 ####[facility] [facility] RBC Auto #/vol (Bld) 4.98 10*6/uL Normal 3.80-5.00 Th e [facility] Comment on above: Performed By: #### 4 6447, 29487 ####[facility] [facility].[address] WBC Auto #/vol (Bld) 9.14 10*3/uL Normal 4.00-10.60 Th e [facility] Comment on above: Performed By: #### 4 6447, 07964 ####[facility] COMP METABOLIC PANELon 10-23 Albumin mass conc 3.8 g/dL Normal 3.5-5.7 The [facility] Comment on above: Performed By: #### 4 7147, 06553 ####[facility] [place] [address], [facility] ALKALINE PHOSPH 96 IU/L Normal 34-104 The [facility] Comment on above: Performed By: #### 4 1696, 77971 ####[facility] ALT enzyme act/vol 15 U/L Normal 7-52 The [facility] Comment on above: Performed By: #### 4 0747, 54073 ####[facility] AST enzyme act/vol 13 U/L Normal 13-39 The [facility] Comment on above: Performed By: #### 4 8178, 32497 ####[facility] [facility] Bilirubin mass conc 0.4 mg/dL Normal 0.3-1.0 The [facility] Comment on above: Performed By: #### 4 2610, 11617 ####[facility] [facility] Calcium mass conc 9.2 mg/dL Normal 8.6-10.3 The [facility] Comment on above: Performed By: #### 4 4341, 55530 ####[facility] [facility].[address] Chloride molar conc 102 mmol/L Normal 98-107 The [facility] Comment on above: Performed By: #### 6 2419, 00989 ####[facility] [place] [address], [facility] CO2 molar conc 29 mmol/L Normal 21-31 The [facility] Comment on above: Performed By: #### 7 8928, 99463 ####[facility] [place] [address], [place] Creatinine mass conc 0.80 mg/dL Normal 0.60-1.20 The [facility] Comment on above: Performed By: #### 2 3269, 24758 ####[facility] [place] [address], [place] GFR/1.73 sq M predicted among blacks MDRD vol rate/area (S/P/Bld) mL/min/{1.73_m2} Normal >60 The [facility] Comment on above: Performed By: #### 2 4528, 10868 ####[facility] [place] [address], [facility] GFR/1.73 sq M predicted among non-blacks MDRD vol rate/area (S/P/Bld) mL/min/{1.73_m2} Normal >60 The [facility] Comment on above: Performed By: #### 4 7154, 47113 ####[facility] [place] [address], [facility] Glucose mass conc 85 mg/dL Normal 70-100 The [facility] Comment on above: Performed By: #### 5 0408, 96421 ####[facility] [place] [address], [place] Potassium molar conc 3.3 mmol/L Low 3.5-5.1 The [facility] Comment on above: Performed By: #### 9 5470, 13768 ####[facility] [place] [address], [place] Protein mass conc 6.5 g/dL Normal 6.0-8.3 The [facility] Comment on above: Performed By: #### 4 6447, 94757 ####[facility] [facility].[address] Sodium molar conc 139 mmol/L Normal 136-145 The [facility] Comment on above: Performed By: #### 4 6447, 52345 ####[facility] [facility].[address] Urea nitrogen mass conc 18 mg/dL Normal 7-25 The [facility] Comment on above: Performed By: #### 4 6447, 34299 ####[place] [address] DIRECT BILIon 10-23-2017 Bilirubin.direct mass conc 0.1 mg/dL Normal 0.0-0.2 [facility] Comment on above: Performed By: #### 4 6447, 04103 ####[facility] EVEROLIMUS 98987if 8 EVEROLIMUS 4.0 ng/mL Normal The [facility] Comment on above: Result Comment: Ther apeutic [...] the transplantcenter.Test developed and characteristics determined by [facility]. See Compliance Statement B: [employer]/CSPerformed by [employer],[address] [facility] [place] [id number] xoi.[employer], Leonid Antonio MD - Lab. Director LIPID PROFILEon 10-23-2017 Cholesterol in HDL mass conc 53 mg/dL Normal 23-92 The [facility] Comment on above: Result Comment: Slig ht variation in normal range could be due to gender and/or age.HDL CHOLESTEROL REFERENCE RANGE:20 years and older Cardiovascular Risk> or =60 mg/dL [id number] TO 59 mg/dL Low Risk<40 mg/dL High Risk Performed By: #### 4 9320, 75210 ####[facility] [place] [address], [facility] Cholesterol in LDL mass conc 68 mg/dL Normal 0-130 The [facility] Comment on above: Result Comment: LDL IS A CALCULATIONLDL IS ONLY VALID IF THE TRIG IS LESS THAN 400. Performed By: #### 4 8125, 04369 ####[facility] [place] [address], [facility] Cholesterol mass conc 135 mg/dL Normal 120-200 The [facility] Comment on above: Result Comment: CHOL ESTEROL REFERENCE RANGE:20 YEARS AND OLDER CARDIOVASCULAR RISKLess than 200 mg/dl Low Owpz812 to 239 mg/dl Borderline Ftgz416 mg/dl and greater High Risk Performed By: #### 4 7527, 79170 ####[facility] [place] [address], [facility] Cholesterol.total/Cho lesterol in HDL mass ratio 2.5 {ratio} Normal .0-4.5 The [facility] Comment on above: Performed By: #### 4 7971, 20228 ####[facility] [place] [address], [place] NON-HDL CHOLESTEROL 82 mg/dL Normal The [facility] Comment on above: Performed By: #### 4 6447, 06215 ####[facility] [facility].[address] Triglyceride mass conc 72 mg/dL Normal 40-149 The [facility] Comment on above: Result Comment: TRIG LYCERIDE REFERENCE RANGE:20 YEARS AND OLDER CARDIOVASCULAR RISKLESS THAN 150 mg/dl LOW [id number] TO 199 mg/dl BORDERLINE [id number] mg/dl AND GREATER HIGH RISK Performed By: #### 4 6447, 54863 ####[facility] VLDL CHOL 14 mg/dL Normal 0-40 The [facility] Comment on above: Performed By: #### 4 6447, 00768 ####[address] MAGNESIUM BLOODon 10-23-2017 Magnesium mass conc 1.8 mg/dL Low 1.9-2.7 The [facility] Comment on above: Performed By: #### 4 6447, 95442 ####[place] [address] PHOSPHORUS BLOODon 8 Phosphate mass conc 3.7 mg/dL Normal 2.5-5.0 The [facility] Comment on above: Performed By: #### 4 6447, 83206 ####[facility] [facility].[address] TACROLIMUSon 10-23-2017 Tacrolimus mass conc (Bld) 2.6 ng/mL Low 5.0-20.0 The [facility] Comment on above: Result Comment: The [employer] Tacrolimus assay is a delayed one-step immunoassayfor the quantitative determination of tacrolimus in human whole bloodusing the chemiluminescent microparticle immunoassay (CMIA) technologywith flexible assay protocols, referred to as Chemiflex. Performed By: #### 4 6447, 33934 ####[facility] URIC ACID BLOODon 10-23-2017 Urate mass conc 4.3 mg/dL Normal 2.3-6.6 The [facility] Comment on above: Performed By: #### 4 6447, 63642 ####[facility] CBC W/DIFFon 09-25-2017 ABS BASOPHILS 0.0 10*3/uL Normal 0.0-0.2 The [facility] Comment on above: Performed By: #### 4 1000, 87369, 12562, 03831, 55670, 14238 ####[facility] ABS IMM GRANS 0.0 10*3/uL Normal 0.0-0.2 The [facility] Comment on above: Performed By: #### 4 1000, 37199, 50243, 93134, 20139, 62921 ####[facility] ABS NEUTROPHILS 4.4 10*3/uL Normal 1.6-7.6 The [facility] Comment on above: Performed By: #### 4 1000, 12675, 07754, 85993, 19703, 29593 ####[facility] Basophils Auto #/vol (Bld) 0.2 % Normal 0.0-1.0 The [facility] Comment on above: Performed By: #### 4 1000, 26270, 75922, 08195, 95516, 98018 ####[facility] Eosinophils Auto #/vol (Bld) 0.1 10*3/uL Normal 0.0-0.5 The [facility] Comment on above: Performed By: #### 4 1000, 88938, 00261, 34065, 22427, 77577 ####[facility] Eosinophils/100 WBC Auto (Bld) 2.2 % Normal 0.0-6.0 The [facility] Comment on above: Performed By: #### 4 1000, 46614, 61928, 01780, 54816, 55602 ####[facility] Erythrocyte distribution width Auto Ratio (RBC) 14.0 % Normal 11.5-15.0 The [facility] Comment on above: Performed By: #### 4 1000, 59368, 18573, 25952, 86785, 98154 ####[facility] Hematocrit Auto Volume Fraction (Bld) 44.8 % Normal 36.0-45.0 The [facility] Comment on above: Performed By: #### 4 1000, 67710, 78396, 51035, 56971, 12204 ####[facility] [facility].[address] Hemoglobin mass conc (Bld) 14.5 g/dL Normal 12.0-15.0 The [facility] Comment on above: Performed By: #### 4 1000, 50777, 40793, 24111, 36332, 23353 ####[facility] [facility].[address] IMMATURE GRANS 0.3 % Normal 0.0-1.0 The [facility] Comment on above: Performed By: #### 4 1000, 69271, 08089, 53283, 23931, 15404 ####[facility] [facility].[address] Lymphocytes Auto #/vol (Bld) 1.1 10*3/uL Low 1.2-4.0 The [facility] Comment on above: Performed By: #### 4 1000, 81609, 10870, 62444, 16157, 26258 ####[facility] Lymphocytes/100 WBC Auto (Bld) 17.0 % Low 20.0-45.0 The [facility] Comment on above: Performed By: #### 4 1000, 43933, 10996, 15854, 70692, 28574 ####[facility] MCH Auto Entitic mass (RBC) 28.6 pg Normal 27.0-33.0 The [facility] Comment on above: Performed By: #### 4 1000, 76721, 86314, 77136, 56552, 26538 ####[facility] [facility] MCHC Auto mass conc (RBC) 32.4 g/dL Normal 32.0-35.0 The [facility] Comment on above: Performed By: #### 4 1000, 58762, 98623, 37267, 40709, 27192 ####[facility] [facility].[address] MCV Auto Entitic volume (RBC) 88.4 fL Normal 82.0-98.0 The [facility] Comment on above: Performed By: #### 4 1000, 06795, 42752, 51251, 38270, 12370 ####[facility] [facility].[address] Monocytes Auto #/vol (Bld) 0.7 10*3/uL Normal 0.1-1.0 The [facility] Comment on above: Performed By: #### 4 1000, 79901, 05442, 96717, 85963, 78738 ####[facility] MONOS 11.5 % Normal 5.0-12.0 [facility] Comment on above: Performed By: #### 4 1000, 67341, 05948, 74613, 86295, 88454 ####[facility] Neutrophils/100 WBC Auto (Bld) 68.8 % Normal 40.0-72.0 [facility] Comment on above: Performed By: #### 4 1000, 62354, 38087, 30351, 20547, 42321 ####[facility] Nucleated RBC/100 WBC Ratio (Bld) 0 % Normal 0-0 The [facility] Comment on above: Performed By: #### 4 1000, 09189, 01135, 77464, 92269, 55975 ####[facility] PLAT CNT 212 10*3/uL Normal 150-400 [facility] Comment on above: Performed By: #### 4 1000, 01386, 03767, 16662, 77922, 41199 ####[facility] RBC Auto #/vol (Bld) 5.07 10*6/uL High 3.80-5.00 Th e [facility] Comment on above: Performed By: #### 4 1000, 90559, 65667, 40749, 67468, 71538 ####[facility] [place] [address], [facility] WBC Auto #/vol (Bld) 6.34 10*3/uL Normal 4.00-10.60 Th e [facility] Comment on above: Performed By: #### 4 1000, 95306, 52512, 87777, 15860, 46405 ####[facility] COMP METABOLIC PANELon 09-25 Albumin mass conc 4.0 g/dL Normal 3.5-5.7 The [facility] Comment on above: Performed By: #### 4 9047, 67013 ####[facility] [place] [address], [facility] ALKALINE PHOSPH 112 IU/L High 34-104 The [facility] Comment on above: Performed By: #### 4 6347, 40155 ####[facility] [place] [address], [facility] ALT enzyme act/vol 11 U/L Normal 7-52 The [facility] Comment on above: Performed By: #### 4 1579, 48758 ####[facility] [place] [address], [facility] AST enzyme act/vol 17 U/L Normal 13-39 The [facility] Comment on above: Performed By: #### 4 3980, 71056 ####[facility] [place] [address], [facility] Bilirubin mass conc 0.5 mg/dL Normal 0.3-1.0 The [facility] Comment on above: Performed By: #### 4 8647, 63649 ####[facility] [place] [address], [facility] Calcium mass conc 9.6 mg/dL Normal 8.6-10.3 The [facility] Comment on above: Performed By: #### 4 1047, 64227 ####[facility] [place] [address], [facility] Chloride molar conc 104 mmol/L Normal 98-107 The [facility] Comment on above: Performed By: #### 4 2219, 28408 ####[facility] [id number], [place] CO2 molar conc 28 mmol/L Normal 21-31 The [facility] Comment on above: Performed By: #### 4 1647, 50949 ####[facility] [place] [address], [facility] Creatinine mass conc 0.83 mg/dL Normal 0.60-1.20 The [facility] Comment on above: Performed By: #### 2 9883, 99617 ####[facility] [place] [address], [facility] GFR/1.73 sq M predicted among blacks MDRD vol rate/area (S/P/Bld) mL/min/{1.73_m2} Normal >60 The [facility] Comment on above: Performed By: #### 7 0588, 55061 ####[place] [address], [facility] GFR/1.73 sq M predicted among non-blacks MDRD vol rate/area (S/P/Bld) mL/min/{1.73_m2} Normal >60 The [facility] Comment on above: Performed By: #### 0 7151, 16703 ####[place] [address] [place] [address], [facility] Glucose mass conc 91 mg/dL Normal 70-100 The [facility] Comment on above: Performed By: #### 7 1747, 56593 ####[facility] [place] [address], [facility] Potassium molar conc 3.9 mmol/L Normal 3.5-5.1 The [facility] Comment on above: Performed By: #### 3 8642, 48881 ####[facility] [place] [address], [facility] Protein mass conc 7.0 g/dL Normal 6.0-8.3 The [facility] Comment on above: Performed By: #### 6 6174, 59791 ####[facility] [facility].[address] Sodium molar conc 140 mmol/L Normal 136-145 The [facility] Comment on above: Performed By: #### 4 6447, 49750 ####[facility] [facility].[address] Urea nitrogen mass conc 15 mg/dL Normal 7-25 The [facility] Comment on above: Performed By: #### 4 6447, 87598 ####[facility] DIRECT BILIon 09-25-2017 Bilirubin.direct mass conc 0.1 mg/dL Normal 0.0-0.2 [facility] Comment on above: Performed By: #### 4 6447, 24255 ####[facility] EVEROLIMUS 19845dz 8 EVEROLIMUS 5.1 ng/mL Normal [facility] Comment on above: Result Comment: [...] determined by [facility]. See Compliance Statement B: [facility]/CSPerformed by [facility],[address], [facility] [id number] fsz.[facility], Leonid Antonio MD - Lab. Director LIPID PROFILEon 09-25-2017 Cholesterol in HDL mass conc 48 mg/dL Normal 23-92 [facility] Comment on above: Result Comment: Slig ht variation in normal range could be due to gender and/or age.HDL CHOLESTEROL REFERENCE RANGE:20 years and older Cardiovascular Risk> or =60 mg/dL Dssbyxpkk06 TO 59 mg/dL Low Risk<40 mg/dL High Risk Performed By: #### 4 2474, 21506 ####[facility] [place] [address], [facility] Cholesterol in LDL mass conc 69 mg/dL Normal 0-130 The [facility] Comment on above: Result Comment: LDL IS A CALCULATIONLDL IS ONLY VALID IF THE TRIG IS LESS THAN 400. Performed By: #### 4 5173, 77880 ####[facility] [place] [address], [facility] Cholesterol mass conc 138 mg/dL Normal 120-200 [facility] Comment on above: Result Comment: CHOL ESTEROL REFERENCE RANGE:20 YEARS AND OLDER CARDIOVASCULAR RISKLess than 200 mg/dl Low Effe364 to 239 mg/dl Borderline Wjkt174 mg/dl and greater High Risk Performed By: #### 4 8401, 07854 ####[facility] [place] [address], [facility] Cholesterol.total/Cho lesterol in HDL mass ratio 2.9 {ratio} Normal .0-4.5 The [facility] Comment on above: Performed By: #### 4 3581, 43412 ####[facility] [place] [address], [facility] NON-HDL CHOLESTEROL 90 mg/dL Normal The [facility] Comment on above: Performed By: #### 4 2830, 82677 ####[facility] [facility].[address] Triglyceride mass conc 103 mg/dL Normal 40-149 The [facility] Comment on above: Result Comment: TRIG LYCERIDE REFERENCE RANGE:20 YEARS AND OLDER CARDIOVASCULAR RISKLESS THAN 150 mg/dl LOW [id number] TO 199 mg/dl BORDERLINE [id number] mg/dl AND GREATER HIGH RISK Performed By: #### 4 6447, 43148 ####[facility] [facility].[address] VLDL CHOL 21 mg/dL Normal 0-40 The [facility] Comment on above: Performed By: #### 4 6447, 65963 ####[facility] [facility].[address] MAGNESIUM BLOODon 09-25-2017 Magnesium mass conc 1.8 mg/dL Low 1.9-2.7 The [facility] Comment on above: Performed By: #### 4 6947, 19027 ####[facility] [facility].[address] PHOSPHORUS BLOODon 8 Phosphate mass conc 3.4 mg/dL Normal 2.5-5.0 The [facility] Comment on above: Performed By: #### 4 6447, 35954 ####[facility] [facility].[address] TACROLIMUSon 09-25-2017 Tacrolimus mass conc (Bld) 3.6 ng/mL Low 5.0-20.0 The [facility] Comment on above: Result Comment: The [employer] Tacrolimus assay is a delayed one-step immunoassayfor the quantitative determination of tacrolimus in human whole bloodusing the chemiluminescent microparticle immunoassay (CMIA) technologywith flexible assay protocols, referred to as Chemiflex. Performed By: #### 4 9213, 17728 ####[facility] [place] [address], [facility] URIC ACID BLOODon 09-25-2017 Urate mass conc 4.7 mg/dL Normal 2.3-6.6 The [facility] Comment on above: Performed By: #### 4 6447, 21610 ####[place] [address] [facility].[address] BK VIRUS QUANTITATION PCR BL OODon 08-26-2017 BKV QUANT PCR Not detected Normal The [facility] Comment on above: Result Comment: Meth od: BK virus was measured by quantitative polymerase chain reactionusing a TaqMan probe targeting the polyomavirus BK [employer]-1 gene.The lower limit of quantitation of the assay is 500 copies of BK genomeper milliliter of plasma or urine, and any detectable BK DNA below thatlevel is reported as: Detected, <500 copies/ml. Serial BK virusmeasurement can be used to monitor disease activity. (Reference:Kelsie simpson. J CLIN MICRO 2004; 42:5364-6614).This test was developed and its performance characteristics determinedby the [facility]. It has not been approvedby the [place] Food and Drug Administration. However, such approval is notrequired for clinical implementation, and test results have been shownto be clinically useful. This laboratory is CAP accredited and CLIAcertified to perform high complexity testing. Performed By: #### 4 1000, 30609, 77943, 11530, 72609, 09242 ####[place] [address] [facility].[address] LOG 10 COPIES Not detected Normal The [facility] Comment on above: Performed By: #### 4 1000, 16835, 29312, 27457, 78741, 10643 ####[facility] [facility].[address] CBC W/DIFFon 08-26-2017 ABS BASOPHILS 0.0 10*3/uL Normal 0.0-0.2 The [facility] Comment on above: Performed By: #### 4 1000, 23121, 53337, 14498, 29053, 07499 ####[address] ABS IMM GRANS 0.0 10*3/uL Normal 0.0-0.2 The [facility] Comment on above: Performed By: #### 4 1000, 55147, 34589, 77902, 56345, 46426 ####[facility] ABS NEUTROPHILS 4.5 10*3/uL Normal 1.6-7.6 The [facility] Comment on above: Performed By: #### 4 1000, 04921, 68648, 44030, 57097, 91502 ####[facility] [facility].[address] Basophils Auto #/vol (Bld) 0.2 % Normal 0.0-1.0 The [facility] Comment on above: Performed By: #### 4 1000, 81599, 78777, 58075, 03841, 57748 ####[facility] [facility].[address] Eosinophils Auto #/vol (Bld) 0.2 10*3/uL Normal 0.0-0.5 The [facility] Comment on above: Performed By: #### 4 1000, 37098, 63050, 64992, 96088, 45532 ####[facility] [facility].[address] Eosinophils/100 WBC Auto (Bld) 2.4 % Normal 0.0-6.0 The [facility] Comment on above: Performed By: #### 4 1000, 96621, 51991, 64613, 10843, 29374 ####[facility] [facility].[address] Erythrocyte distribution width Auto Ratio (RBC) 14.0 % Normal 11.5-15.0 The [facility] Comment on above: Performed By: #### 4 1000, 64501, 72898, 57196, 02579, 32786 ####[facility] Hematocrit Auto Volume Fraction (Bld) 44.9 % Normal 36.0-45.0 The [facility] Comment on above: Performed By: #### 4 1000, 06490, 51266, 61884, 11998, 44217 ####[address] Hemoglobin mass conc (Bld) 14.9 g/dL Normal 12.0-15.0 The [facility] Comment on above: Performed By: #### 4 1000, 40623, 31256, 78758, 68042, 98948 ####[address] IMMATURE GRANS 0.5 % Normal 0.0-1.0 The [facility] Comment on above: Performed By: #### 4 1000, 13126, 42521, 90786, 26490, 61281 ####[address] Lymphocytes Auto #/vol (Bld) 1.0 10*3/uL Low 1.2-4.0 The [facility] Comment on above: Performed By: #### 4 1000, 66757, 10595, 60420, 04943, 22672 ####[address] Lymphocytes/100 WBC Auto (Bld) 15.8 % Low 20.0-45.0 The [facility] Comment on above: Performed By: #### 4 1000, 91499, 64194, 78003, 79783, 39829 ####[address] MCH Auto Entitic mass (RBC) 29.1 pg Normal 27.0-33.0 The [facility] Comment on above: Performed By: #### 4 1000, 96624, 70110, 30162, 60169, 12766 ####[facility] MCHC Auto mass conc (RBC) 33.2 g/dL Normal 32.0-35.0 The [facility] Comment on above: Performed By: #### 4 1000, 01580, 94944, 61805, 98068, 53726 ####[facility] MCV Auto Entitic volume (RBC) 87.7 fL Normal 82.0-98.0 The [facility] Comment on above: Performed By: #### 4 1000, 13817, 56586, 52951, 21297, 68369 ####[facility] Monocytes Auto #/vol (Bld) 0.7 10*3/uL Normal 0.1-1.0 The [facility] Comment on above: Performed By: #### 4 1000, 40556, 08482, 93169, 00445, 37405 ####[facility] [facility].[address] MONOS 10.6 % Normal 5.0-12.0 The [facility] Comment on above: Performed By: #### 4 1000, 37649, 40714, 61854, 61811, 14812 ####[facility] Neutrophils/100 WBC Auto (Bld) 70.5 % Normal 40.0-72.0 The [facility] Comment on above: Performed By: #### 4 1000, 32555, 39295, 93420, 98153, 55284 ####[facility] Nucleated RBC/100 WBC Ratio (Bld) 0 % Normal 0-0 The [facility] Comment on above: Performed By: #### 4 1000, 10349, 87297, 20995, 46198, 33802 ####[facility] [place] [address], [facility] PLAT CNT 231 10*3/uL Normal 150-400 [facility] Comment on above: Performed By: #### 4 1000, 99792, 60084, 28425, 63189, 93570 ####[facility] [place] [address], [facility] RBC Auto #/vol (Bld) 5.12 10*6/uL High 3.80-5.00 Th e [facility] Comment on above: Performed By: #### 4 1000, 48712, 39755, 03675, 53535, 26128 ####[facility] WBC Auto #/vol (Bld) 6.32 10*3/uL Normal 4.00-10.60 Th e [facility] Comment on above: Performed By: #### 4 1000, 16115, 38401, 78160, 25336, 93932 ####[facility] COMP METABOLIC PANELon 08-26 Albumin mass conc 4.3 g/dL Normal 3.5-5.7 [facility] Comment on above: Performed By: #### 4 1000, 89058, 68131, 56483, 07740, 87847 ####[facility] ALKALINE PHOSPH 125 IU/L High 34-104 The [facility] Comment on above: Performed By: #### 4 1000, 34048, 30305, 67194, 60452, 96380 ####[facility] ALT enzyme act/vol 17 U/L Normal 7-52 The [facility] Comment on above: Performed By: #### 4 1000, 99076, 54244, 05209, 91349, 97467 ####[facility] [place] [address], [facility] AST enzyme act/vol 23 U/L Normal 13-39 The [facility] Comment on above: Performed By: #### 4 1000, 64276, 49441, 18011, 58071, 44100 ####[facility] [place] [address], [facility] Bilirubin mass conc 0.4 mg/dL Normal 0.3-1.0 [facility] Comment on above: Performed By: #### 4 1000, 84753, 04004, 09919, 87568, 08934 ####[facility] [place] [address], [facility] Calcium mass conc 9.6 mg/dL Normal 8.6-10.3 The [facility] Comment on above: Performed By: #### 4 1000, 22844, 49698, 66748, 67821, 53385 ####[facility] [place] [address], [facility] Chloride molar conc 104 mmol/L Normal 98-107 [facility] Comment on above: Performed By: #### 4 1000, 16026, 29948, 95004, 32076, 38993 ####[facility] [place] [address], [facility] CO2 molar conc 27 mmol/L Normal 21-31 The [facility] Comment on above: Performed By: #### 4 1000, 13309, 96743, 21751, 48576, 25511 ####[facility] [place] [address], [facility] Creatinine mass conc 0.77 mg/dL Normal 0.60-1.20 The [facility] Comment on above: Performed By: #### 4 1000, 02290, 88840, 26588, 19247, 03630 ####[facility] [place] [address], [place] GFR/1.73 sq M predicted among blacks MDRD vol rate/area (S/P/Bld) mL/min/{1.73_m2} Normal >60 The [facility] Comment on above: Performed By: #### 4 1000, 11958, 75365, 12578, 28586, 42774 ####[facility] [place] [address], [place] GFR/1.73 sq M predicted among non-blacks MDRD vol rate/area (S/P/Bld) mL/min/{1.73_m2} Normal >60 The [facility] Comment on above: Performed By: #### 4 1000, 99161, 74603, 76343, 24103, 64465 ####[facility] [place] [address], [place] Glucose mass conc 95 mg/dL Normal 70-100 The [facility] Comment on above: Performed By: #### 4 1000, 14729, 43319, 68080, 72313, 63441 ####[facility] [place] [address], [place] Potassium molar conc 4.1 mmol/L Normal 3.5-5.1 The [facility] Comment on above: Performed By: #### 4 1000, 29912, 50394, 66048, 12413, 42863 ####[facility] [place] [address], [place] Protein mass conc 7.3 g/dL Normal 6.0-8.3 The [facility] Comment on above: Performed By: #### 4 1000, 72391, 98167, 10725, 90040, 70011 ####[facility] [place] [address], [place] Sodium molar conc 139 mmol/L Normal 136-145 The [facility] Comment on above: Performed By: #### 4 1000, 78093, 56913, 86285, 68560, 82051 ####[facility] Urea nitrogen mass conc 12 mg/dL Normal 7-25 The [facility] Comment on above: Performed By: #### 4 1000, 84325, 23536, 17360, 09475, 10137 ####[facility] DIRECT BILIon 08-26-2017 Bilirubin.direct mass conc 0.1 mg/dL Normal 0.0-0.2 [facility] Comment on above: Performed By: #### 4 1000, 50741, 85339, 47527, 13227, 11201 ####[facility] EVEROLIMUS 97553er 8 EVEROLIMUS 5.6 ng/mL Normal The [facility] Comment on above: Result Comment: Ther apeutic [...] the transplantcenter.Test developed and characteristics determined by [facility]. See Compliance Statement B: [facility]/CSPerformed by [facility],[address] [place] [address] zic.[facility], Leonid Antonio MD - Lab. Director HEMOGLOBIN A1Con 08-26-2017 Glucose mass conc 114 mg/dL Normal 70-126 [facility] Comment on above: Performed By: #### 4 1000, 13884, 88043, 24877, 83078, 06748 ####[facility] [place] [address], [facility] Hemoglobin A1c/Hemoglobin.total mass fraction (Bld) 5.6 % Normal 4.0-6.0 The [facility] Comment on above: Performed By: #### 4 1000, 94462, 14530, 07748, 91194, 74595 ####[facility] LIPID PROFILEon 08-26-2017 Cholesterol in HDL mass conc 49 mg/dL Normal 23-92 [facility] Comment on above: Result Comment: Slig ht variation in normal range could be due to gender and/or age.HDL CHOLESTEROL REFERENCE RANGE:20 years and older Cardiovascular Risk> or =60 mg/dL Uygmsplfk43 TO 59 mg/dL Low Risk<40 mg/dL High Risk Performed By: #### 4 1000, 49093, 89149, 96654, 13113, 35146 ####[facility] [place] [address], [place] Cholesterol in LDL mass conc 76 mg/dL Normal 0-130 The [facility] Comment on above: Result Comment: LDL IS A CALCULATIONLDL IS ONLY VALID IF THE TRIG IS LESS THAN 400. Performed By: #### 4 1000, 21878, 22004, 04205, 63296, 98709 ####[facility] [place] [address], [place] Cholesterol mass conc 152 mg/dL Normal 120-200 The [facility] Comment on above: Result Comment: CHOL ESTEROL REFERENCE RANGE:20 YEARS AND OLDER CARDIOVASCULAR RISKLess than 200 mg/dl Low Fviz988 to 239 mg/dl Borderline Hzkb352 mg/dl and greater High Risk Performed By: #### 4 1000, 88085, 15658, 50169, 66265, 77304 ####[facility] Cholesterol.total/Cho lesterol in HDL mass ratio 3.1 {ratio} Normal .0-4.5 The [facility] Comment on above: Performed By: #### 4 1000, 91935, 69586, 19261, 13124, 28474 ####[facility] [facility] NON-HDL CHOLESTEROL 103 mg/dL Normal The [facility] Comment on above: Performed By: #### 4 1000, 51242, 13366, 08556, 18821, 91948 ####[facility] [facility] Triglyceride mass conc 133 mg/dL Normal 40-149 The [facility] Comment on above: Result Comment: TRIG LYCERIDE REFERENCE RANGE:20 YEARS AND OLDER CARDIOVASCULAR RISKLESS THAN 150 mg/dl LOW [id number] TO 199 mg/dl BORDERLINE [id number] mg/dl AND GREATER HIGH RISK Performed By: #### 4 1000, 16951, 68464, 02327, 16532, 96010 ####[facility] [facility] [facility] VLDL CHOL 27 mg/dL Normal 0-40 The [facility] Comment on above: Performed By: #### 4 1000, 27394, 72722, 76821, 45807, 27153 ####[facility] MAGNESIUM BLOODon 08-26-2017 Magnesium mass conc 1.9 mg/dL Normal 1.9-2.7 [facility] Comment on above: Performed By: #### 4 1000, 45999, 14076, 82864, 33445, 86389 ####[facility] [place] [address], [facility] PHOSPHORUS BLOODon 8 Phosphate mass conc 3.4 mg/dL Normal 2.5-5.0 [facility] Comment on above: Performed By: #### 4 1000, 97687, 74945, 66210, 23611, 10576 ####[facility] [facility].[address] TACROLIMUSon 08-26-2017 Tacrolimus mass conc (Bld) 4.3 ng/mL Low 5.0-20.0 The [facility] Comment on above: Result Comment: The [employer] Tacrolimus assay is a delayed one-step immunoassayfor the quantitative determination of tacrolimus in human whole bloodusing the chemiluminescent microparticle immunoassay (CMIA) technologywith flexible assay protocols, referred to as Chemiflex. Performed By: #### 4 1000, 60520, 29734, 76374, 84707, 31854 ####[facility] URIC ACID BLOODon 08-26-2017 Urate mass conc 4.6 mg/dL Normal 2.3-6.6 The [facility] Comment on above: Performed By: #### 4 1000, 10343, 16517, 67704, 95987, 43518 ####[facility] [facility].[address] CBC W/DIFFon 07-23-2017 ABS BASOPHILS 0.0 10*3/uL Normal 0.0-0.2 The [facility] Comment on above: Performed By: #### 4 1000, 57729, 71952, 63733, 39218, 47263 ####[facility] [facility].[address] ABS IMM GRANS 0.0 10*3/uL Normal 0.0-0.2 The [facility] Comment on above: Performed By: #### 4 1000, 93335, 82170, 29671, 30399, 98097 ####[facility] ABS NEUTROPHILS 4.4 10*3/uL Normal 1.6-7.6 The [facility] Comment on above: Performed By: #### 4 1000, 51959, 49936, 23663, 40891, 75756 ####[facility] [place] [address], [facility] Basophils Auto #/vol (Bld) 0.2 % Normal 0.0-1.0 The [facility] Comment on above: Performed By: #### 4 1000, 74776, 98645, 76613, 60909, 95318 ####[facility] Eosinophils Auto #/vol (Bld) 0.1 10*3/uL Normal 0.0-0.5 The [facility] Comment on above: Performed By: #### 4 1000, 32124, 39509, 54240, 93211, 77837 ####[facility] [address] Eosinophils/100 WBC Auto (Bld) 2.1 % Normal 0.0-6.0 The [facility] Comment on above: Performed By: #### 4 1000, 47377, 69989, 21875, 49457, 81861 ####[facility] Erythrocyte distribution width Auto Ratio (RBC) 13.7 % Normal 11.5-15.0 The [facility] Comment on above: Performed By: #### 4 1000, 61230, 83826, 60974, 35309, 36722 ####[facility] Hematocrit Auto Volume Fraction (Bld) 44.4 % Normal 36.0-45.0 The [facility] Comment on above: Performed By: #### 4 1000, 40535, 47861, 78947, 93440, 64387 ####[facility].[address] Hemoglobin mass conc (Bld) 14.7 g/dL Normal 12.0-15.0 The [facility] Comment on above: Performed By: #### 4 1000, 97734, 64097, 02672, 19347, 18640 ####[facility].[address] IMMATURE GRANS 0.5 % Normal 0.0-1.0 The [facility] Comment on above: Performed By: #### 4 1000, 17428, 55585, 24998, 80029, 42514 ####[facility].[address] Lymphocytes Auto #/vol (Bld) 1.0 10*3/uL Low 1.2-4.0 The [facility] Comment on above: Performed By: #### 4 1000, 80536, 76779, 14117, 20989, 51217 ####[place] [address] [facility].[address] Lymphocytes/100 WBC Auto (Bld) 15.5 % Low 20.0-45.0 The [facility] Comment on above: Performed By: #### 4 1000, 31249, 39408, 72584, 62218, 83670 ####[facility] [facility].[address] MCH Auto Entitic mass (RBC) 28.9 pg Normal 27.0-33.0 The [facility] Comment on above: Performed By: #### 4 1000, 81271, 56611, 74948, 32718, 83427 ####[facility] MCHC Auto mass conc (RBC) 33.1 g/dL Normal 32.0-35.0 [facility] Comment on above: Performed By: #### 4 1000, 23144, 54722, 34880, 83364, 52555 ####[facility] [facility] MCV Auto Entitic volume (RBC) 87.4 fL Normal 82.0-98.0 [facility] Comment on above: Performed By: #### 4 1000, 00978, 06784, 59938, 71109, 25719 ####[place] [address] [facility].[address] Monocytes Auto #/vol (Bld) 0.8 10*3/uL Normal 0.1-1.0 [facility] Comment on above: Performed By: #### 4 1000, 72063, 24551, 27786, 28706, 32445 ####[facility] [facility].[address] MONOS 12.3 % High 5.0-12.0 [facility] Comment on above: Performed By: #### 4 1000, 41032, 52527, 77932, 71251, 29405 ####[place] [address] [facility] Neutrophils/100 WBC Auto (Bld) 69.4 % Normal 40.0-72.0 The [facility] Comment on above: Performed By: #### 4 1000, 02489, 32821, 75529, 80982, 23919 ####[facility] [facility] Nucleated RBC/100 WBC Ratio (Bld) 0 % Normal 0-0 [facility] Comment on above: Performed By: #### 4 1000, 94659, 33695, 82844, 62940, 65772 ####[facility] PLAT CNT 218 10*3/uL Normal 150-400 [facility] Comment on above: Performed By: #### 4 1000, 03773, 91317, 94851, 33436, 86591 ####[facility] RBC Auto #/vol (Bld) 5.08 10*6/uL High 3.80-5.00 Th e [facility] Comment on above: Performed By: #### 4 1000, 87295, 60602, 00100, 21709, 71004 ####[facility] [facility] WBC Auto #/vol (Bld) 6.3 10*3/uL Normal 4.0-10.6 [facility] Comment on above: Performed By: #### 4 1000, 71307, 35820, 91576, 08491, 56908 ####[facility] [facility] COMP METABOLIC PANELon 07-23 Albumin mass conc 4.2 g/dL Normal 3.5-5.7 The [facility] Comment on above: Performed By: #### 4 1000, 07156, 44857, 00428, 17056, 57232 ####[facility] ALKALINE PHOSPH 113 IU/L High 34-104 [facility] Comment on above: Performed By: #### 4 1000, 89588, 52629, 64587, 17746, 62092 ####[facility] ALT enzyme act/vol 23 U/L Normal 7-52 The [facility] Comment on above: Performed By: #### 4 1000, 47543, 49860, 62175, 97355, 17517 ####[facility] [place] [address], [facility] AST enzyme act/vol 25 U/L Normal 13-39 The [facility] Comment on above: Performed By: #### 4 1000, 09301, 77149, 44931, 55236, 46810 ####[facility] [place] [address], [facility] Bilirubin mass conc 0.6 mg/dL Normal 0.3-1.0 The [facility] Comment on above: Performed By: #### 4 1000, 90512, 08832, 74794, 56437, 65537 ####[facility] [place] [address], [facility] Calcium mass conc 9.6 mg/dL Normal 8.6-10.3 [facility] Comment on above: Performed By: #### 4 1000, 11141, 13714, 80689, 57884, 62341 ####[facility] [place] [address], [facility] Chloride molar conc 104 mmol/L Normal 98-107 [facility] Comment on above: Performed By: #### 4 1000, 87224, 07186, 10066, 92930, 51333 ####[facility] [place] [address], [place] CO2 molar conc 25 mmol/L Normal 21-31 The [facility] Comment on above: Performed By: #### 4 1000, 15578, 45736, 90680, 59184, 35165 ####[facility] [place] [address], [place] Creatinine mass conc 0.80 mg/dL Normal 0.60-1.20 [facility] Comment on above: Performed By: #### 4 1000, 15186, 70241, 33224, 05056, 24122 ####[facility] [place] [address], [place] GFR/1.73 sq M predicted among blacks MDRD vol rate/area (S/P/Bld) mL/min/{1.73_m2} Normal >60 The [facility] Comment on above: Performed By: #### 4 1000, 18576, 37411, 68171, 69005, 38381 ####[facility] [place] [address], [facility] GFR/1.73 sq M predicted among non-blacks MDRD vol rate/area (S/P/Bld) mL/min/{1.73_m2} Normal >60 The [facility] Comment on above: Performed By: #### 4 1000, 06192, 41292, 27006, 03089, 65039 ####[facility] [place] [address], [facility] Glucose mass conc 91 mg/dL Normal 70-100 The [facility] Comment on above: Performed By: #### 4 1000, 36383, 83005, 70974, 12505, 79382 ####[facility] [place] [address], [facility] Potassium molar conc 4.0 mmol/L Normal 3.5-5.1 [facility] Comment on above: Performed By: #### 4 1000, 53532, 19548, 08376, 95465, 60735 ####[facility] [place] [address], [place] Protein mass conc 6.8 g/dL Normal 6.0-8.3 The [facility] Comment on above: Performed By: #### 4 1000, 58732, 12802, 16152, 60945, 20760 ####[facility] [place] [address], [place] Sodium molar conc 140 mmol/L Normal 136-145 The [facility] Comment on above: Performed By: #### 4 1000, 12260, 92516, 56649, 47112, 46215 ####[facility] Urea nitrogen mass conc 16 mg/dL Normal 7-25 [facility] Comment on above: Performed By: #### 4 1000, 61965, 36918, 63615, 80558, 22892 ####[facility] DIRECT BILIon 07-23-2017 Bilirubin.direct mass conc 0.2 mg/dL Normal 0.0-0.2 [facility] Comment on above: Performed By: #### 4 1000, 94559, 42985, 45045, 80406, 12878 ####[facility] EVEROLIMUS [id number] 8 EVEROLIMUS 5.3 ng/mL Normal [facility] Comment on above: Result Comment: [...] determined by [facility]. See Compliance Statement B: [email or web address] by [facility],[address] [place] [address] cmp.[facility], Leonid Antonio MD - Lab. Director LIPID PROFILEon 07-23-2017 Cholesterol in HDL mass conc 45 mg/dL Normal 23-92 The [facility] Comment on above: Result Comment: Slig ht variation in normal range could be due to gender and/or age.HDL CHOLESTEROL REFERENCE RANGE:20 years and older Cardiovascular Risk> or =60 mg/dL Rvjujjxyo44 TO 59 mg/dL Low Risk<40 mg/dL High Risk Performed By: #### 4 1000, 55876, 63006, 87226, 46057, 03711 ####[facility] [place] [address], [place] Cholesterol in LDL mass conc 79 mg/dL Normal 0-130 The [facility] Comment on above: Result Comment: LDL IS A CALCULATIONLDL IS ONLY VALID IF THE TRIG IS LESS THAN 400. Performed By: #### 4 1000, 66042, 34468, 85678, 33615, 30012 ####[facility] [place] [address], [place] Cholesterol mass conc 141 mg/dL Normal 120-200 The [facility] Comment on above: Result Comment: CHOL ESTEROL REFERENCE RANGE:20 YEARS AND OLDER CARDIOVASCULAR RISKLess than 200 mg/dl Low Azln886 to 239 mg/dl Borderline Tgtk321 mg/dl and greater High Risk Performed By: #### 4 1000, 51508, 89486, 27904, 89152, 85834 ####[facility] [place] [address], [place] Cholesterol.total/Cho lesterol in HDL mass ratio 3.1 {ratio} Normal .0-4.5 [facility] Comment on above: Performed By: #### 4 1000, 49015, 36500, 09279, 11167, 12466 ####[facility] [place] [address], [place] NON-HDL CHOLESTEROL 96 mg/dL Normal The [facility] Comment on above: Performed By: #### 4 1000, 93393, 48901, 38499, 21412, 03563 ####[facility] [facility].[address] Triglyceride mass conc 83 mg/dL Normal 40-149 The [facility] Comment on above: Result Comment: TRIG LYCERIDE REFERENCE RANGE:20 YEARS AND OLDER CARDIOVASCULAR RISKLESS THAN 150 mg/dl LOW NELT218 TO 199 mg/dl BORDERLINE [id number] mg/dl AND GREATER HIGH RISK Performed By: #### 4 1000, 91117, 70972, 58326, 22271, 22834 ####[facility] [facility].[address] VLDL CHOL 17 mg/dL Normal 0-40 [facility] Comment on above: Performed By: #### 4 1000, 22456, 74182, 48295, 38890, 74444 ####[facility] MAGNESIUM BLOODon 07-23-2017 Magnesium mass conc 2.0 mg/dL Normal 1.9-2.7 [facility] Comment on above: Performed By: #### 4 1000, 36387, 43123, 16921, 78737, 44554 ####[facility] [facility].[address] PHOSPHORUS BLOODon 8 Phosphate mass conc 4.0 mg/dL Normal 2.5-5.0 [facility] Comment on above: Performed By: #### 4 1000, 65609, 66002, 02565, 67961, 44023 ####[facility] TACROLIMUSon 07-23-2017 Tacrolimus mass conc (Bld) 4.6 ng/mL Low 5.0-20.0 The [facility] Comment on above: Result Comment: The [employer] Tacrolimus assay is a delayed one-step immunoassayfor the quantitative determination of tacrolimus in human whole bloodusing the chemiluminescent microparticle immunoassay (CMIA) technologywith flexible assay protocols, referred to as Chemiflex. Performed By: #### 4 1000, 72960, 14204, 06538, 73019, 12767 ####[facility] URIC ACID BLOODon 07-23-2017 Urate mass conc 4.7 mg/dL Normal 2.3-6.6 The [facility] Comment on above: Performed By: #### 4 1000, 21928, 96372, 80001, 74541, 62785 ####[facility] CBC W/DIFFon 06-20-2017 ABS BASOPHILS 0.0 10*3/uL Normal 0.0-0.2 The [facility] Comment on above: Performed By: #### 4 1000, 97893, 94036, 13662, 54891, 80266 ####[facility] ABS IMM GRANS 0.0 10*3/uL Normal 0.0-0.2 [facility] Comment on above: Performed By: #### 4 1000, 63074, 21672, 77646, 98400, 12819 ####[facility] ABS NEUTROPHILS 4.2 10*3/uL Normal 1.6-7.6 The [facility] Comment on above: Performed By: #### 4 1000, 90309, 75549, 10167, 71453, 36547 ####[facility] Basophils Auto #/vol (Bld) 0.2 % Normal 0.0-1.0 The [facility] Comment on above: Performed By: #### 4 1000, 56383, 98265, 34221, 67481, 59972 ####[facility] Eosinophils Auto #/vol (Bld) 0.1 10*3/uL Normal 0.0-0.5 The [facility] Comment on above: Performed By: #### 4 1000, 19983, 32106, 12873, 15064, 28762 ####[facility] Eosinophils/100 WBC Auto (Bld) 1.5 % Normal 0.0-6.0 [facility] Comment on above: Performed By: #### 4 1000, 76817, 57314, 46085, 38120, 15288 ####[facility] [facility] Erythrocyte distribution width Auto Ratio (RBC) 13.4 % Normal 11.5-15.0 The [facility] Comment on above: Performed By: #### 4 1000, 90768, 06926, 76832, 28145, 27634 ####[facility] [facility].[address] Hematocrit Auto Volume Fraction (Bld) 44.9 % Normal 36.0-45.0 The [facility] Comment on above: Performed By: #### 4 1000, 83880, 24264, 20385, 09403, 96867 ####[facility] Hemoglobin mass conc (Bld) 14.9 g/dL Normal 12.0-15.0 The [facility] Comment on above: Performed By: #### 4 1000, 15182, 69810, 96619, 80404, 58605 ####[facility] [place] [address], [facility] IMMATURE GRANS 0.2 % Normal 0.0-1.0 [facility] Comment on above: Performed By: #### 4 1000, 53651, 40857, 38815, 75230, 32306 ####[facility] [facility] Lymphocytes Auto #/vol (Bld) 1.1 10*3/uL Low 1.2-4.0 The [facility] Comment on above: Performed By: #### 4 1000, 17777, 20522, 80099, 13723, 73321 ####[facility] [facility].[address] Lymphocytes/100 WBC Auto (Bld) 17.4 % Low 20.0-45.0 The [facility] Comment on above: Performed By: #### 4 1000, 15224, 17584, 14999, 42291, 37612 ####[facility] [facility].[address] MCH Auto Entitic mass (RBC) 29.2 pg Normal 27.0-33.0 The [facility] Comment on above: Performed By: #### 4 1000, 16155, 35682, 58758, 00584, 07001 ####[facility] [facility].[address] MCHC Auto mass conc (RBC) 33.2 g/dL Normal 32.0-35.0 [facility] Comment on above: Performed By: #### 4 1000, 16304, 11491, 15184, 51424, 81936 ####[facility] [facility].[address] MCV Auto Entitic volume (RBC) 87.9 fL Normal 82.0-98.0 The [facility] Comment on above: Performed By: #### 4 1000, 47165, 85518, 78845, 77885, 50191 ####[facility] [facility].[address] Monocytes Auto #/vol (Bld) 0.7 10*3/uL Normal 0.1-1.0 [facility] Comment on above: Performed By: #### 4 1000, 84761, 94909, 89672, 68616, 39700 ####[facility] [place] [address], [facility] MONOS 11.3 % Normal 5.0-12.0 [facility] Comment on above: Performed By: #### 4 1000, 49048, 58309, 62782, 52207, 31253 ####[facility] Neutrophils/100 WBC Auto (Bld) 69.4 % Normal 40.0-72.0 [facility] Comment on above: Performed By: #### 4 1000, 23535, 24385, 41581, 28909, 03482 ####[facility] Nucleated RBC/100 WBC Ratio (Bld) 0 % Normal 0-0 [facility] Comment on above: Performed By: #### 4 1000, 20012, 88625, 93049, 85443, 03750 ####[facility] PLAT CNT 198 10*3/uL Normal 150-400 [facility] Comment on above: Performed By: #### 4 1000, 52396, 75151, 27173, 39473, 96675 ####[facility] [place] [address], [facility] RBC Auto #/vol (Bld) 5.11 10*6/uL High 3.80-5.00 Th e [facility] Comment on above: Performed By: #### 4 1000, 48275, 94363, 23172, 88400, 17919 ####[facility] [place] [address], [facility] WBC Auto #/vol (Bld) 6.0 10*3/uL Normal 4.0-10.6 The [facility] Comment on above: Performed By: #### 4 1000, 47181, 59320, 59222, 59423, 35074 ####[facility] [place] [address], [facility] COMP METABOLIC PANELon 06-20 Albumin mass conc 4.4 g/dL Normal 3.5-5.7 The [facility] Comment on above: Performed By: #### 4 1000, 31319, 29154, 12905, 51007, 64963 ####[facility] [place] [address], [facility] ALKALINE PHOSPH 133 IU/L High 34-104 The [facility] Comment on above: Performed By: #### 4 1000, 94216, 44014, 10560, 94439, 64323 ####[facility] [place] [address], [facility] ALT enzyme act/vol 16 U/L Normal 7-52 The [facility] Comment on above: Performed By: #### 4 1000, 20356, 10524, 86495, 00753, 95071 ####[facility] [place] [address], [facility] AST enzyme act/vol 21 U/L Normal 13-39 The [facility] Comment on above: Performed By: #### 4 1000, 26224, 63562, 54592, 69865, 93322 ####[facility] [place] [address], [facility] Bilirubin mass conc 0.8 mg/dL Normal 0.3-1.0 [facility] Comment on above: Performed By: #### 4 1000, 47776, 72990, 51585, 86903, 29496 ####[facility] [place] [address], [facility] Calcium mass conc 10.0 mg/dL Normal 8.6-10.3 [facility] Comment on above: Performed By: #### 4 1000, 59983, 87679, 59917, 28630, 96369 ####[facility] [place] [address], [facility] Chloride molar conc 106 mmol/L Normal 98-107 [facility] Comment on above: Performed By: #### 4 1000, 62988, 98201, 43986, 26579, 82712 ####[facility] [place] [address], [facility] CO2 molar conc 27 mmol/L Normal 21-31 The [facility] Comment on above: Performed By: #### 4 1000, 78900, 24717, 04567, 12811, 99989 ####[facility] [place] [address], [facility] Creatinine mass conc 0.74 mg/dL Normal 0.60-1.20 The [facility] Comment on above: Performed By: #### 4 1000, 13318, 70636, 65634, 39515, 20775 ####[facility] [place] [address], [facility] GFR/1.73 sq M predicted among blacks MDRD vol rate/area (S/P/Bld) mL/min/{1.73_m2} Normal >60 The [facility] Comment on above: Performed By: #### 4 1000, 33777, 49780, 00180, 34054, 88360 ####[facility] [place] [address], [facility] GFR/1.73 sq M predicted among non-blacks MDRD vol rate/area (S/P/Bld) mL/min/{1.73_m2} Normal >60 The [facility] Comment on above: Performed By: #### 4 1000, 94261, 73874, 14490, 31848, 91091 ####[facility] [place] [address], [facility] Glucose mass conc 95 mg/dL Normal 70-100 The [facility] Comment on above: Performed By: #### 4 1000, 73195, 88520, 72352, 24966, 63291 ####[facility] [place] [address], [facility] Potassium molar conc 3.8 mmol/L Normal 3.5-5.1 The [facility] Comment on above: Performed By: #### 4 1000, 84511, 69054, 08340, 02936, 37130 ####[facility] [place] [address], [facility] Protein mass conc 7.3 g/dL Normal 6.0-8.3 The [facility] Comment on above: Performed By: #### 4 1000, 41973, 19614, 29278, 56321, 37349 ####[facility] [place] [address], [facility] Sodium molar conc 137 mmol/L Normal 136-145 The [facility] Comment on above: Performed By: #### 4 1000, 31059, 96686, 71599, 93202, 52916 ####[facility] [place] [address], [facility] Urea nitrogen mass conc 16 mg/dL Normal 7-25 The [facility] Comment on above: Performed By: #### 4 1000, 75762, 40197, 31344, 09663, 28852 ####[facility] [id number], [facility] DIRECT BILIon 06-20-2017 Bilirubin.direct mass conc 0.1 mg/dL Normal 0.0-0.2 The [facility] Comment on above: Performed By: #### 4 1000, 08344, 68591, 95522, 47604, 56117 ####[facility] [place] [address], [facility] EVEROLIMUS [id number] 8 EVEROLIMUS 6.7 ng/mL Normal The [facility] Comment on above: Result Comment: Ther apeutic [...] the transplantcenter.Test developed and characteristics determined by [facility]. See Compliance Statement B: [facility]/CSPerformed by [facility],[address] [place] [id number] mxh.[facility], Leonid Antonio MD - Lab. Director LIPID PROFILEon 06-20-2017 Cholesterol in HDL mass conc 45 mg/dL Normal 23-92 [facility] Comment on above: Result Comment: Slig ht variation in normal range could be due to gender and/or age.HDL CHOLESTEROL REFERENCE RANGE:20 years and older Cardiovascular Risk> or =60 mg/dL Kyqlultnz81 TO 59 mg/dL Low Risk<40 mg/dL High Risk Performed By: #### 4 1000, 55389, 72137, 98820, 82138, 57248 ####[facility] [place] [address], [facility] Cholesterol in LDL mass conc 58 mg/dL Normal 0-130 [facility] Comment on above: Result Comment: LDL IS A CALCULATIONLDL IS ONLY VALID IF THE TRIG IS LESS THAN 400. Performed By: #### 4 1000, 42484, 01523, 97586, 38355, 09942 ####[facility] [place] [address], [facility] Cholesterol mass conc 126 mg/dL Normal 120-200 The [facility] Comment on above: Result Comment: CHOL ESTEROL REFERENCE RANGE:20 YEARS AND OLDER CARDIOVASCULAR RISKLess than 200 mg/dl Low Lazj458 to 239 mg/dl Borderline Pffn702 mg/dl and greater High Risk Performed By: #### 4 1000, 44224, 08568, 25478, 12977, 94748 ####[facility] [place] [address], [facility] Cholesterol.total/Cho lesterol in HDL mass ratio 2.8 {ratio} Normal .0-4.5 [facility] Comment on above: Performed By: #### 4 1000, 68378, 05142, 02278, 87202, 65022 ####[facility] [place] [address], [facility] NON-HDL CHOLESTEROL 81 mg/dL Normal [facility] Comment on above: Performed By: #### 4 1000, 78046, 71525, 09378, 72980, 30423 ####[facility] [place] [address], [facility] Triglyceride mass conc 113 mg/dL Normal 40-149 The [facility] Comment on above: Result Comment: TRIG LYCERIDE REFERENCE RANGE:20 YEARS AND OLDER CARDIOVASCULAR RISKLESS THAN 150 mg/dl LOW OTEX646 TO 199 mg/dl BORDERLINE IOSC095 mg/dl AND GREATER HIGH RISK Performed By: #### 4 1000, 34503, 18187, 33400, 00495, 10069 ####[facility], [place] [address] [facility] VLDL CHOL 23 mg/dL Normal 0-40 The [facility] Comment on above: Performed By: #### 4 1000, 73380, 06446, 32622, 29221, 39462 ####[facility].[address] MAGNESIUM BLOODon 06-20-2017 Magnesium mass conc 1.9 mg/dL Normal 1.9-2.7 The [facility] Comment on above: Performed By: #### 4 1000, 10878, 54825, 45791, 07358, 39220 ####[facility].[address] PHOSPHORUS BLOODon 8 Phosphate mass conc 3.1 mg/dL Normal 2.5-5.0 The [facility] Comment on above: Performed By: #### 4 1000, 89907, 60793, 32076, 45398, 15170 ####[facility].[address] TACROLIMUSon 06-20-2017 Tacrolimus mass conc (Bld) 4.2 ng/mL Low 5.0-20.0 The [facility] Comment on above: Result Comment: The [employer] Tacrolimus assay is a delayed one-step immunoassayfor the quantitative determination of tacrolimus in human whole bloodusing the chemiluminescent microparticle immunoassay (CMIA) technologywith flexible assay protocols, referred to as Chemiflex. Performed By: #### 4 1000, 62874, 83831, 29036, 12848, 63503 ####[facility].[address] URIC ACID BLOODon 06-20-2017 Urate mass conc 4.3 mg/dL Normal 2.3-6.6 The [facility] Comment on above: Performed By: #### 4 1000, 18330, 82483, 46950, 97597, 10139 ####[facility].[address] BK VIRUS QUANTITATION PCR BL OODon 05-27-2017 BKV QUANT PCR Not detected Normal The [facility] Comment on above: Result Comment: Meth od: BK virus was measured by quantitative polymerase chain reactionusing a TaqMan probe targeting the polyomavirus BK [employer]-1 gene.The lower limit of quantitation of the assay is 500 copies of BK genomeper milliliter of plasma or urine, and any detectable BK DNA below thatlevel is reported as: Detected, <500 copies/ml. Serial BK virusmeasurement can be used to monitor disease activity. (Reference:Kelsie vaughanl. J CLIN MICRO 2004; 42:7284-4085).This test was developed and its performance characteristics determinedby the [facility]. It has not been approvedby the US Food and Drug Administration. However, such approval is notrequired for clinical implementation, and test results have been shownto be clinically useful. This laboratory is CAP accredited and CLIAcertified to perform high complexity testing. Performed By: #### 4 1000, 90791, 66686, 54826, 26293, 83638 ####[facility] LOG 10 COPIES Not detected Normal The [facility] Comment on above: Performed By: #### 4 1000, 88082, 62532, 34003, 37279, 70260 ####[facility].[address] CBC W/DIFFon 05-27-2017 ABS BASOPHILS 0.0 10*3/uL Normal 0.0-0.2 The [facility] Comment on above: Performed By: #### 4 1000, 63771, 02954, 53048, 03410, 61920 ####[facility].[address] ABS IMM GRANS 0.0 10*3/uL Normal 0.0-0.2 The [facility] Comment on above: Performed By: #### 4 1000, 72677, 68227, 14683, 70990, 62083 ####[facility].[address] ABS NEUTROPHILS 4.8 10*3/uL Normal 1.6-7.6 The [facility] Comment on above: Performed By: #### 4 1000, 99189, 11540, 88031, 65302, 40284 ####[place] [address] [facility] Basophils Auto #/vol (Bld) 0.0 % Normal 0.0-1.0 The [facility] Comment on above: Performed By: #### 4 1000, 70325, 78828, 56554, 29850, 46275 ####[place] [address] [facility].[address] Eosinophils Auto #/vol (Bld) 0.1 10*3/uL Normal 0.0-0.5 The [facility] Comment on above: Performed By: #### 4 1000, 87236, 96695, 19805, 06706, 38858 ####[place] [address] [facility].[address] Eosinophils/100 WBC Auto (Bld) 1.1 % Normal 0.0-6.0 The [facility] Comment on above: Performed By: #### 4 1000, 40073, 80619, 66954, 12256, 97210 ####[place] [address] [facility].[address] Erythrocyte distribution width Auto Ratio (RBC) 13.5 % Normal 11.5-15.0 The [facility] Comment on above: Performed By: #### 4 1000, 94767, 09947, 69069, 02745, 29194 ####[address] Hematocrit Auto Volume Fraction (Bld) 46.1 % High 36.0-45.0 The [facility] Comment on above: Performed By: #### 4 1000, 00932, 99039, 53062, 00314, 74862 ####[facility].[address] Hemoglobin mass conc (Bld) 15.0 g/dL Normal 12.0-15.0 The [facility] Comment on above: Performed By: #### 4 1000, 11411, 95195, 08996, 01522, 01852 ####[facility].[address] IMMATURE GRANS 0.3 % Normal 0.0-1.0 The [facility] Comment on above: Performed By: #### 4 1000, 59236, 62081, 97946, 14250, 73685 ####[place] [address] [facility].[address] Lymphocytes Auto #/vol (Bld) 1.0 10*3/uL Low 1.2-4.0 The [facility] Comment on above: Performed By: #### 4 1000, 40199, 63444, 32301, 60745, 81184 ####[facility].[address] Lymphocytes/100 WBC Auto (Bld) 15.7 % Low 20.0-45.0 The [facility] Comment on above: Performed By: #### 4 1000, 46200, 10825, 53354, 98893, 25187 ####[facility].[address] MCH Auto Entitic mass (RBC) 28.8 pg Normal 27.0-33.0 The [facility] Comment on above: Performed By: #### 4 1000, 06319, 64508, 19053, 09722, 81470 ####[facility] [place] [address].[address] MCHC Auto mass conc (RBC) 32.5 g/dL Normal 32.0-35.0 The [facility] Comment on above: Performed By: #### 4 1000, 67948, 65921, 09490, 60370, 84434 ####[facility] MCV Auto Entitic volume (RBC) 88.7 fL Normal 82.0-98.0 [facility] Comment on above: Performed By: #### 4 1000, 53093, 75960, 61511, 55699, 86578 ####[facility] Monocytes Auto #/vol (Bld) 0.8 10*3/uL Normal 0.1-1.0 [facility] Comment on above: Performed By: #### 4 1000, 69029, 07503, 39877, 30506, 48885 ####[facility] MONOS 11.4 % Normal 5.0-12.0 The [facility] Comment on above: Performed By: #### 4 1000, 16017, 57214, 13934, 22712, 33231 ####[facility] Neutrophils/100 WBC Auto (Bld) 71.5 % Normal 40.0-72.0 [facility] Comment on above: Performed By: #### 4 1000, 95080, 20177, 46869, 91758, 64433 ####[facility] Nucleated RBC/100 WBC Ratio (Bld) 0 % Normal 0-0 The [facility] Comment on above: Performed By: #### 4 1000, 61572, 12901, 21164, 75022, 63266 ####[facility] [place] [address], [facility] PLAT CNT 199 10*3/uL Normal 150-400 [facility] Comment on above: Performed By: #### 4 1000, 44804, 69478, 31063, 46098, 92713 ####[facility] [place] [address], [facility] RBC Auto #/vol (Bld) 5.20 10*6/uL High 3.80-5.00 Th e [facility] Comment on above: Performed By: #### 4 1000, 94711, 04101, 76987, 03883, 52482 ####[facility] [place] [address], [facility] WBC Auto #/vol (Bld) 6.6 10*3/uL Normal 4.0-10.6 The [facility] Comment on above: Performed By: #### 4 1000, 20662, 35130, 06462, 05261, 39984 ####[facility] COMP METABOLIC PANELon 05-27 Albumin mass conc 4.6 g/dL Normal 3.5-5.7 The [facility] Comment on above: Performed By: #### 4 1000, 22350, 13635, 59457, 29588, 56656 ####[facility] ALKALINE PHOSPH 105 IU/L High 34-104 The [facility] Comment on above: Performed By: #### 4 1000, 35323, 95942, 28854, 56223, 94176 ####[facility] [place] [address], [facility] ALT enzyme act/vol 20 U/L Normal 7-52 The [facility] Comment on above: Performed By: #### 4 1000, 31778, 60047, 98647, 92729, 36133 ####[facility] [place] [address], [facility] AST enzyme act/vol 23 U/L Normal 13-39 [facility] Comment on above: Performed By: #### 4 1000, 46555, 24661, 23911, 07650, 16474 ####[facility] [place] [address], [facility] Bilirubin mass conc 0.6 mg/dL Normal 0.3-1.0 The [facility] Comment on above: Performed By: #### 4 1000, 52873, 93415, 36935, 56231, 91666 ####[facility] [place] [address], [place] Calcium mass conc 9.8 mg/dL Normal 8.6-10.3 [facility] Comment on above: Performed By: #### 4 1000, 21955, 98621, 67494, 56414, 86509 ####[facility] [place] [address], [place] Chloride molar conc 106 mmol/L Normal 98-107 The [facility] Comment on above: Performed By: #### 4 1000, 49520, 81322, 32442, 42825, 00020 ####[facility] [place] [address], [place] CO2 molar conc 30 mmol/L Normal 21-31 The [facility] Comment on above: Performed By: #### 4 1000, 99078, 40729, 18350, 02453, 49112 ####[facility] [place] [address], [place] Creatinine mass conc 0.80 mg/dL Normal 0.60-1.20 The [facility] Comment on above: Performed By: #### 4 1000, 99969, 65695, 85097, 43526, 24845 ####[facility] [place] [address], [place] GFR/1.73 sq M predicted among blacks MDRD vol rate/area (S/P/Bld) mL/min/{1.73_m2} Normal >60 The [facility] Comment on above: Performed By: #### 4 1000, 97996, 53824, 84948, 35156, 71357 ####[facility] [place] [address], [facility] GFR/1.73 sq M predicted among non-blacks MDRD vol rate/area (S/P/Bld) mL/min/{1.73_m2} Normal >60 The [facility] Comment on above: Performed By: #### 4 1000, 08309, 31884, 54348, 92386, 09057 ####[facility] [place] [address], [facility] Glucose mass conc 90 mg/dL Normal 70-100 The [facility] Comment on above: Performed By: #### 4 1000, 88194, 22632, 75995, 86965, 56874 ####[facility] [place] [address], [place] Potassium molar conc 4.0 mmol/L Normal 3.5-5.1 The [facility] Comment on above: Performed By: #### 4 1000, 14160, 81902, 76604, 39283, 96295 ####[facility] [place] [address], [place] Protein mass conc 6.8 g/dL Normal 6.0-8.3 The [facility] Comment on above: Performed By: #### 4 1000, 93502, 20225, 82879, 10796, 53850 ####[facility] [place] [address], [place] Sodium molar conc 138 mmol/L Normal 136-145 The [facility] Comment on above: Performed By: #### 4 1000, 21961, 35575, 33080, 61786, 67791 ####[facility] [place] [address], [facility] Urea nitrogen mass conc 14 mg/dL Normal 7-25 The [facility] Comment on above: Performed By: #### 4 1000, 13731, 10518, 14712, 37190, 32297 ####[facility] DIRECT BILIon 05-27-2017 Bilirubin.direct mass conc 0.1 mg/dL Normal 0.0-0.2 The [facility] Comment on above: Performed By: #### 4 1000, 40590, 22799, 65611, 86792, 85693 ####[facility] EVEROLIMUS 78848qs 8 EVEROLIMUS 5.6 ng/mL Normal [facility] Comment on above: Result Comment: [...] the transplantcenter.Test developed and characteristics determined by [facility]. See Compliance Statement B: [facility]/CSPerformed by [facility],[address] [place] [id number] [email or web address], Leonid Antonio MD - Lab. Director HEMOGLOBIN A1Con 05-27-2017 Glucose mass conc 108 mg/dL Normal 70-126 [facility] Comment on above: Performed By: #### 4 1000, 14587, 88680, 61242, 51127, 57810 ####[facility] [place] [address], [facility] Hemoglobin A1c/Hemoglobin.total mass fraction (Bld) 5.4 % Normal 4.0-6.0 The [facility] Comment on above: Performed By: #### 4 1000, 65645, 98005, 41903, 04453, 28241 ####[facility] LIPID PROFILEon 05-27-2017 Cholesterol in HDL mass conc 39 mg/dL Normal 23-92 [facility] Comment on above: Result Comment: Slig ht variation in normal range could be due to gender and/or age.HDL CHOLESTEROL REFERENCE RANGE:20 years and older Cardiovascular Risk> or =60 mg/dL Hyclbeket08 TO 59 mg/dL Low Risk<40 mg/dL High Risk Performed By: #### 4 1000, 71470, 86707, 53376, 25734, 65379 ####[facility] [place] [address], [facility] Cholesterol in LDL mass conc 52 mg/dL Normal 0-130 [facility] Comment on above: Result Comment: LDL IS A CALCULATIONLDL IS ONLY VALID IF THE TRIG IS LESS THAN 400. Performed By: #### 4 1000, 15506, 75176, 66640, 50533, 30266 ####[facility] [place] [address], [facility] Cholesterol mass conc 117 mg/dL Low 120-200 The [facility] Comment on above: Result Comment: CHOL ESTEROL REFERENCE RANGE:20 YEARS AND OLDER CARDIOVASCULAR RISKLess than 200 mg/dl Low Llsl834 to 239 mg/dl Borderline Gzlu162 mg/dl and greater High Risk Performed By: #### 4 1000, 10816, 54536, 04596, 89103, 60053 ####[facility] [place] [address], [facility] Cholesterol.total/Cho lesterol in HDL mass ratio 3.0 {ratio} Normal .0-4.5 The [facility] Comment on above: Performed By: #### 4 1000, 98725, 33029, 72462, 91294, 57126 ####[facility], [place] [address] [place] [address] NON-HDL CHOLESTEROL 78 mg/dL Normal The [facility] Comment on above: Performed By: #### 4 1000, 98576, 84890, 74464, 50197, 87771 ####[facility] Triglyceride mass conc 131 mg/dL Normal 40-149 The [facility] Comment on above: Result Comment: TRIG LYCERIDE REFERENCE RANGE:20 YEARS AND OLDER CARDIOVASCULAR RISKLESS THAN 150 mg/dl LOW [id number] TO 199 mg/dl BORDERLINE [id number] mg/dl AND GREATER HIGH RISK Performed By: #### 4 1000, 19102, 80335, 29771, 79205, 09827 ####[facility] VLDL CHOL 26 mg/dL Normal 0-40 The [facility] Comment on above: Performed By: #### 4 1000, 23298, 80375, 93400, 60828, 48311 ####[facility] [place] [address], [facility] MAGNESIUM BLOODon 05-27-2017 Magnesium mass conc 2.1 mg/dL Normal 1.9-2.7 The [facility] Comment on above: Performed By: #### 4 1000, 58801, 53353, 26952, 32496, 48978 ####[facility] [place] [address], [facility] PHOSPHORUS BLOODon 8 Phosphate mass conc 3.5 mg/dL Normal 2.5-5.0 The [facility] Comment on above: Performed By: #### 4 1000, 74735, 13841, 96739, 75483, 72502 ####[facility] TACROLIMUSon 05-27-2017 Tacrolimus mass conc (Bld) 4.4 ng/mL Low 5.0-20.0 The [facility] Comment on above: Result Comment: The [employer] Tacrolimus assay is a delayed one-step immunoassayfor the quantitative determination of tacrolimus in human whole bloodusing the chemiluminescent microparticle immunoassay (CMIA) technologywith flexible assay protocols, referred to as Chemiflex. Performed By: #### 4 1000, 75822, 12665, 24879, 25016, 91338 ####[facility].[address] URIC ACID BLOODon 05-27-2017 Urate mass conc 4.6 mg/dL Normal 2.3-6.6 The [facility] Comment on above: Performed By: #### 4 1000, 12159, 56435, 53145, 89634, 92034 ####[facility].[address] CBC W/DIFFon 04-29-2017 ABS BASOPHILS 0.0 10*3/uL Normal 0.0-0.2 The [facility] Comment on above: Performed By: #### 4 1000, 90432, 18208, 95377, 21614, 04883 ####[facility].[address] ABS IMM GRANS 0.0 10*3/uL Normal 0.0-0.2 The [facility] Comment on above: Performed By: #### 4 1000, 99716, 37727, 26970, 20520, 12538 ####[facility] ABS NEUTROPHILS 4.6 10*3/uL Normal 1.6-7.6 The [facility] Comment on above: Performed By: #### 4 1000, 74820, 77327, 14597, 51582, 40933 ####[facility] [place] [address], [facility] Basophils Auto #/vol (Bld) 0.3 % Normal 0.0-1.0 The [facility] Comment on above: Performed By: #### 4 1000, 72798, 31136, 69614, 52096, 54999 ####[facility] [place] [address], [facility] Eosinophils Auto #/vol (Bld) 0.1 10*3/uL Normal 0.0-0.5 The [facility] Comment on above: Performed By: #### 4 1000, 61049, 17741, 93870, 73687, 86601 ####[facility] [place] [address], [facility] Eosinophils/100 WBC Auto (Bld) 1.7 % Normal 0.0-6.0 The [facility] Comment on above: Performed By: #### 4 1000, 07884, 29052, 84554, 95659, 06949 ####[facility] Erythrocyte distribution width Auto Ratio (RBC) 13.7 % Normal 11.5-15.0 The [facility] Comment on above: Performed By: #### 4 1000, 73258, 23111, 06567, 11180, 59326 ####[facility] Hematocrit Auto Volume Fraction (Bld) 45.0 % Normal 36.0-45.0 The [facility] Comment on above: Performed By: #### 4 1000, 13226, 89484, 24296, 51954, 38525 ####[facility] Hemoglobin mass conc (Bld) 14.9 g/dL Normal 12.0-15.0 The [facility] Comment on above: Performed By: #### 4 1000, 22287, 00710, 40993, 26615, 12973 ####[address] IMMATURE GRANS 0.3 % Normal 0.0-1.0 The [facility] Comment on above: Performed By: #### 4 1000, 60024, 66716, 99559, 71144, 82446 ####[place] [address] [address] Lymphocytes Auto #/vol (Bld) 0.9 10*3/uL Low 1.2-4.0 The [facility] Comment on above: Performed By: #### 4 1000, 35415, 24969, 14873, 21935, 47011 ####[place] [address] [address] Lymphocytes/100 WBC Auto (Bld) 14.2 % Low 20.0-45.0 The [facility] Comment on above: Performed By: #### 4 1000, 76055, 15597, 05605, 63225, 90245 ####[address] MCH Auto Entitic mass (RBC) 29.4 pg Normal 27.0-33.0 The [facility] Comment on above: Performed By: #### 4 1000, 27422, 55536, 14873, 87069, 41497 ####[address] MCHC Auto mass conc (RBC) 33.1 g/dL Normal 32.0-35.0 The [facility] Comment on above: Performed By: #### 4 1000, 22645, 20282, 20885, 62184, 27696 ####[facility] MCV Auto Entitic volume (RBC) 88.8 fL Normal 82.0-98.0 The [facility] Comment on above: Performed By: #### 4 1000, 18181, 81222, 49233, 54702, 02882 ####[facility] Monocytes Auto #/vol (Bld) 0.8 10*3/uL Normal 0.1-1.0 The [facility] Comment on above: Performed By: #### 4 1000, 89501, 82260, 19298, 20614, 48767 ####[facility] MONOS 12.2 % High 5.0-12.0 The [facility] Comment on above: Performed By: #### 4 1000, 28190, 04498, 05281, 95289, 46121 ####[facility] Neutrophils/100 WBC Auto (Bld) 71.3 % Normal 40.0-72.0 The [facility] Comment on above: Performed By: #### 4 1000, 47929, 45428, 77112, 33541, 93646 ####[facility] Nucleated RBC/100 WBC Ratio (Bld) 0 % Normal 0-0 The [facility] Comment on above: Performed By: #### 4 1000, 66192, 60297, 47039, 67707, 35430 ####[facility] [place] [address], [facility] PLAT CNT 215 10*3/uL Normal 150-400 [facility] Comment on above: Performed By: #### 4 1000, 70262, 71257, 95111, 03194, 92222 ####[facility] RBC Auto #/vol (Bld) 5.07 10*6/uL High 3.80-5.00 Th e [facility] Comment on above: Performed By: #### 4 1000, 65241, 34268, 88627, 67522, 13594 ####[facility] WBC Auto #/vol (Bld) 6.5 10*3/uL Normal 4.0-10.6 The [facility] Comment on above: Performed By: #### 4 1000, 32560, 19638, 47526, 50481, 27602 ####[facility] COMP METABOLIC PANELon 04-29 Albumin mass conc 4.4 g/dL Normal 3.5-5.7 The [facility] Comment on above: Performed By: #### 4 1000, 82721, 78064, 51769, 07403, 80203 ####[facility] ALKALINE PHOSPH 114 IU/L High 34-104 The [facility] Comment on above: Performed By: #### 4 1000, 83393, 96384, 69349, 25368, 53871 ####[facility] ALT enzyme act/vol 15 U/L Normal 7-52 The [facility] Comment on above: Performed By: #### 4 1000, 57521, 49008, 87384, 73377, 21592 ####[facility] AST enzyme act/vol 19 U/L Normal 13-39 The [facility] Comment on above: Performed By: #### 4 1000, 71078, 83460, 12314, 63778, 81480 ####[facility] [place] [address], [facility] Bilirubin mass conc 0.7 mg/dL Normal 0.3-1.0 The [facility] Comment on above: Performed By: #### 4 1000, 93074, 84711, 70630, 96016, 51478 ####[facility] [place] [address], [facility] Calcium mass conc 9.6 mg/dL Normal 8.6-10.3 [facility] Comment on above: Performed By: #### 4 1000, 08873, 21944, 37936, 52459, 23131 ####[facility] [place] [address], [facility] Chloride molar conc 103 mmol/L Normal 98-107 The [facility] Comment on above: Performed By: #### 4 1000, 30904, 16211, 24701, 66155, 73263 ####[facility] [place] [address], [facility] CO2 molar conc 29 mmol/L Normal 21-31 The [facility] Comment on above: Performed By: #### 4 1000, 48487, 27952, 02618, 13081, 86178 ####[facility] [place] [address], [facility] Creatinine mass conc 0.79 mg/dL Normal 0.60-1.20 The [facility] Comment on above: Performed By: #### 4 1000, 54192, 11585, 14938, 86191, 90142 ####[facility] [place] [address], [facility] GFR/1.73 sq M predicted among blacks MDRD vol rate/area (S/P/Bld) mL/min/{1.73_m2} Normal >60 The [facility] Comment on above: Performed By: #### 4 1000, 29725, 70250, 31548, 07363, 01325 ####[facility] [place] [address], [facility] HOSPITAL GFR/1.73 sq M predicted among non-blacks MDRD vol rate/area (S/P/Bld) mL/min/{1.73_m2} Normal >60 The [facility] Comment on above: Performed By: #### 4 1000, 75744, 79678, 21976, 65298, 52229 ####[facility] [place] [address], [facility] Glucose mass conc 90 mg/dL Normal 70-100 The [facility] Comment on above: Performed By: #### 4 1000, 97145, 73373, 04254, 45663, 84331 ####[facility] [place] [address], [facility] Potassium molar conc 3.8 mmol/L Normal 3.5-5.1 The [facility] Comment on above: Performed By: #### 4 1000, 65529, 91251, 97316, 90182, 88732 ####[facility] [place] [address], [facility] Protein mass conc 7.2 g/dL Normal 6.0-8.3 The [facility] Comment on above: Performed By: #### 4 1000, 10328, 34737, 05447, 70451, 30515 ####[facility] [place] [address], [facility] Sodium molar conc 140 mmol/L Normal 136-145 The [facility] Comment on above: Performed By: #### 4 1000, 87755, 51336, 46812, 59064, 97519 ####[facility] [place] [address], [place] Urea nitrogen mass conc 15 mg/dL Normal 7-25 The [facility] Comment on above: Performed By: #### 4 1000, 29323, 21924, 65230, 75535, 95332 ####[facility] DIRECT BILIon 04-29-2017 Bilirubin.direct mass conc 0.1 mg/dL Normal 0.0-0.2 [facility] Comment on above: Order Comment: Liver Battery conflicts with Comprehensive Metabolic Panel. Liver Battery canceled and Direct Bilirubin added. Performed By: #### 4 1000, 37346, 76501, 23552, 64052, 46168 ####[facility] EVEROLIMUS [address]at 8 EVEROLIMUS 5.4 ng/mL Normal [facility] Comment on above: Result Comment: [...] the transplantcenter.Test developed and characteristics determined by [facility]. See Compliance Statement B: [facility]/CSPerformed by [facility],[address] [place] [address],[place] [id number] yzt.[facility], Leonid Antonio MD - Lab. Director LIPID PROFILEon 04-29-2017 Cholesterol in HDL mass conc 49 mg/dL Normal 23-92 [facility] Comment on above: Result Comment: Slig ht variation in normal range could be due to gender and/or age.HDL CHOLESTEROL REFERENCE RANGE:20 years and older Cardiovascular Risk> or =60 mg/dL [id number] TO 59 mg/dL Low Risk<40 mg/dL High Risk Performed By: #### 4 1000, 22480, 55260, 53371, 90837, 28420 ####[facility] [place] [address], [facility] Cholesterol in LDL mass conc 52 mg/dL Normal 0-130 The [facility] Comment on above: Result Comment: LDL IS A CALCULATIONLDL IS ONLY VALID IF THE TRIG IS LESS THAN 400. Performed By: #### 4 1000, 66560, 16967, 03733, 04991, 60414 ####[facility] [place] [address], [facility] Cholesterol mass conc 122 mg/dL Normal 120-200 The [facility] Comment on above: Result Comment: CHOL ESTEROL REFERENCE RANGE:20 YEARS AND OLDER CARDIOVASCULAR RISKLess than 200 mg/dl Low Oqda597 to 239 mg/dl Borderline Boov756 mg/dl and greater High Risk Performed By: #### 4 1000, 85659, 30533, 97338, 57698, 95280 ####[facility] [place] [address], [facility] Cholesterol.total/Cho lesterol in HDL mass ratio 2.5 {ratio} Normal .0-4.5 The [facility] Comment on above: Performed By: #### 4 1000, 76383, 83148, 89760, 45255, 83666 ####[facility] [place] [address], [facility] NON-HDL CHOLESTEROL 73 mg/dL Normal The [facility] Comment on above: Performed By: #### 4 1000, 08521, 81169, 65220, 43557, 42878 ####[id number] Triglyceride mass conc 106 mg/dL Normal 40-149 The [facility] Comment on above: Result Comment: TRIG LYCERIDE REFERENCE RANGE:20 YEARS AND OLDER CARDIOVASCULAR RISKLESS THAN 150 mg/dl LOW [id number] TO 199 mg/dl BORDERLINE [id number] mg/dl AND GREATER HIGH RISK Performed By: #### 4 1000, 87220, 12096, 55447, 13111, 16873 ####[facility] VLDL CHOL 21 mg/dL Normal 0-40 The [facility] Comment on above: Performed By: #### 4 1000, 55826, 42581, 98610, 43672, 79006 ####[facility] [facility] MAGNESIUM BLOODon 04-29-2017 Magnesium mass conc 2.1 mg/dL Normal 1.9-2.7 The [facility] Comment on above: Performed By: #### 4 1000, 22952, 04218, 41616, 36547, 52628 ####[facility] [facility].[address] PHOSPHORUS BLOODon 8 Phosphate mass conc 3.3 mg/dL Normal 2.5-5.0 The [facility] Comment on above: Performed By: #### 4 1000, 04868, 80288, 79913, 50015, 85731 ####[facility] [facility] TACROLIMUSon 04-29-2017 Tacrolimus mass conc (Bld) 4.6 ng/mL Low 5.0-20.0 The [facility] Comment on above: Result Comment: The [employer] Tacrolimus assay is a delayed one-step immunoassayfor the quantitative determination of tacrolimus in human whole bloodusing the chemiluminescent microparticle immunoassay (CMIA) technologywith flexible assay protocols, referred to as Chemiflex. Performed By: #### 4 1000, 23760, 21090, 26053, 53093, 02779 ####[facility] [facility] URIC ACID BLOODon 04-29-2017 Urate mass conc 4.6 mg/dL Normal 2.3-6.6 The [facility] Comment on above: Performed By: #### 4 1000, 14732, 88517, 82215, 97724, 41231 ####[facility] [facility] CBC W/DIFFon 03-27-2017 Basophils Auto #/vol (Bld) 0.2 % Normal 0.0-2.0 The [facility] Comment on above: Performed By: #### 4 1000, 63657, 40814, 24364, 20853, 58610 ####[facility] [facility] Eosinophils/100 WBC Auto (Bld) 1.8 % Normal 0.0-5.0 The [facility] Comment on above: Performed By: #### 4 1000, 63986, 21928, 60213, 57225, 87969 ####[facility] [facility] [facility] Erythrocyte distribution width Auto Ratio (RBC) 13.6 % Normal 11.5-16.9 The [facility] Comment on above: Performed By: #### 4 1000, 61917, 76103, 88618, 21988, 63485 ####[facility] [facility] Hematocrit Auto Volume Fraction (Bld) 47.6 % Normal 36.0-48.0 The [facility] Comment on above: Performed By: #### 4 1000, 74645, 69245, 45064, 90902, 08729 ####[facility] Hemoglobin mass conc (Bld) 15.8 g/dL High 12.0-15.0 The [facility] Comment on above: Performed By: #### 4 1000, 25612, 44686, 00731, 59332, 96422 ####[facility] Lymphocytes/100 WBC Auto (Bld) 14.5 % Low 20.0-40.0 The [facility] Comment on above: Performed By: #### 4 1000, 95759, 87043, 84386, 60420, 60725 ####[facility] MCH Auto Entitic mass (RBC) 29.0 pg Normal 24.0-32.0 The [facility] Comment on above: Performed By: #### 4 1000, 20098, 34770, 10679, 71909, 88132 ####[facility] MCHC Auto mass conc (RBC) 33.3 g/dL Normal 32.0-36.0 The [facility] Comment on above: Performed By: #### 4 1000, 23549, 69124, 67945, 87056, 67479 ####[facility] MCV Auto Entitic volume (RBC) 87.4 fL Normal 80.0-100.0 The [facility] Comment on above: Performed By: #### 4 1000, 39669, 39744, 10964, 42939, 09025 ####[facility] METHOD Normal RBC Morphology Normal The [facility] Comment on above: Performed By: #### 4 1000, 81246, 80646, 59784, 67385, 38237 ####[facility] [place] [address], [place] MONOS 9.6 % High 2-8 The [facility] Comment on above: Performed By: #### 4 1000, 36853, 64051, 64977, 11557, 29017 ####[facility] [place] [address], [facility] Neutrophils/100 WBC Auto (Bld) 73.9 % High 50-70 [facility] Comment on above: Performed By: #### 4 1000, 23428, 66893, 00975, 91427, 20530 ####[facility] [place] [address], [facility] PLAT CNT 228 Thou/mm3 Normal 100-400 The [facility] Comment on above: Performed By: #### 4 1000, 28824, 63926, 72378, 92088, 94169 ####[facility] [place] [address], [facility] RBC Auto #/vol (Bld) 5.45 mill/mm3 Normal 3.50-5.50 T he [facility] Comment on above: Performed By: #### 4 1000, 50767, 16895, 02606, 97818, 70498 ####[facility] [place] [address], [facility] WBC Auto #/vol (Bld) 6.5 Thou/mm3 Normal 4.0-10.0 Th e [facility] Comment on above: Performed By: #### 4 1000, 67524, 41219, 12045, 69168, 90036 ####[facility] [place] [address], [facility] COMP METABOLIC PANELon 03-27 Albumin mass conc 4.7 g/dL Normal 3.5-5.7 The [facility] Comment on above: Performed By: #### 4 1000, 52187, 66431, 64116, 03732, 63270 ####[facility] [place] [address], [facility] ALKALINE PHOSPH 99 IU/L Normal 34-104 The [facility] Comment on above: Performed By: #### 4 1000, 09962, 62183, 73252, 23009, 22012 ####[facility] [place] [address], [facility] ALT enzyme act/vol 19 U/L Normal 7-52 The [facility] Comment on above: Performed By: #### 4 1000, 77362, 79500, 09598, 09926, 47710 ####[facility] [place] [address], [facility] AST enzyme act/vol 21 U/L Normal 13-39 The [facility] Comment on above: Performed By: #### 4 1000, 48427, 01417, 10627, 71045, 51720 ####[facility] [id number], [facility] Bilirubin mass conc 0.6 mg/dL Normal 0.3-1.0 The [facility] Comment on above: Performed By: #### 4 1000, 28922, 08607, 98701, 06114, 06923 ####[facility] [place] [address], [facility] Calcium mass conc 10.2 mg/dL Normal 8.6-10.3 The [facility] Comment on above: Performed By: #### 4 1000, 58902, 36972, 10790, 85879, 22340 ####[facility] [place] [address], [place] Chloride molar conc 104 mmol/L Normal 98-107 The [facility] Comment on above: Performed By: #### 4 1000, 75273, 58185, 43059, 12562, 04658 ####[facility] [place] [address], [place] CO2 molar conc 28 mmol/L Normal 21-31 [facility] Comment on above: Performed By: #### 4 1000, 60024, 77753, 92104, 84850, 16032 ####[facility] [place] [address], [facility] Creatinine mass conc 0.78 mg/dL Normal 0.60-1.20 [facility] Comment on above: Performed By: #### 4 1000, 17407, 15647, 44259, 98194, 80885 ####[facility] [place] [address], [facility] GFR/1.73 sq M predicted among blacks MDRD vol rate/area (S/P/Bld) mL/min/{1.73_m2} Normal >60 The [facility] Comment on above: Performed By: #### 4 1000, 27848, 77103, 76804, 14379, 16956 ####[facility] [place] [address], [facility] GFR/1.73 sq M predicted among non-blacks MDRD vol rate/area (S/P/Bld) mL/min/{1.73_m2} Normal >60 The [facility] Comment on above: Performed By: #### 4 1000, 80176, 00919, 76093, 61525, 42621 ####[facility] [place] [address], [facility] Glucose mass conc 87 mg/dL Normal 70-100 [facility] Comment on above: Performed By: #### 4 1000, 12162, 06609, 30591, 20468, 86551 ####[facility] [place] [address], [facility] Potassium molar conc 4.1 mmol/L Normal 3.5-5.1 [facility] Comment on above: Performed By: #### 4 1000, 67020, 31850, 00674, 37537, 09468 ####[facility] Protein mass conc 7.8 g/dL Normal 6.0-8.3 The [facility] Comment on above: Performed By: #### 4 1000, 99155, 83924, 77788, 40064, 67887 ####[facility] Sodium molar conc 139 mmol/L Normal 136-145 The [facility] Comment on above: Performed By: #### 4 1000, 81627, 16683, 00625, 92315, 98520 ####[facility] Urea nitrogen mass conc 19 mg/dL Normal 7-25 The [facility] Comment on above: Performed By: #### 4 1000, 95250, 14085, 26643, 87773, 55060 ####[facility] DIRECT BILIon 03-27-2017 Bilirubin.direct mass conc 0.1 mg/dL Normal 0.0-0.2 The [facility] Comment on above: Performed By: #### 4 1000, 57892, 32306, 20823, 13930, 38605 ####[facility] EVEROLIMUS [address]at 7 EVEROLIMUS 5.3 ng/mL Normal The [facility] Comment on above: Result Comment: Ther apeutic [...] the transplantcenter.Test developed and characteristics determined by [facility]. See Compliance Statement B: [facility]/CSPerformed by [facility],[address] [place] [id number] zaz.[employer], Leonid Antonio MD - Lab. Director LIPID PROFILEon 03-27-2017 Cholesterol in HDL mass conc 50 mg/dL Normal 23-92 The [facility] Comment on above: Result Comment: Slig ht variation in normal range could be due to gender and/or age.HDL CHOLESTEROL REFERENCE RANGE:20 years and older Cardiovascular Risk> or =60 mg/dL Gtnuropsn87 TO 59 mg/dL Low Risk<40 mg/dL High Risk Performed By: #### 4 1000, 38165, 10773, 08370, 67841, 51146 ####[facility] Cholesterol in LDL mass conc 66 mg/dL Normal 0-130 The [facility] Comment on above: Result Comment: LDL IS A CALCULATIONLDL IS ONLY VALID IF THE TRIG IS LESS THAN 400. Performed By: #### 4 1000, 53776, 43607, 89423, 06072, 91494 ####[facility] [place] [address], [facility] Cholesterol mass conc 147 mg/dL Normal 120-200 The [facility] Comment on above: Result Comment: CHOL ESTEROL REFERENCE RANGE:20 YEARS AND OLDER CARDIOVASCULAR RISKLess than 200 mg/dl Low Laqh492 to 239 mg/dl Borderline Kkyd472 mg/dl and greater High Risk Performed By: #### 4 1000, 09919, 12891, 93886, 47290, 32722 ####[facility] [place] [address], [facility] Cholesterol.total/Cho lesterol in HDL mass ratio 2.9 {ratio} Normal .0-4.5 The [facility] Comment on above: Performed By: #### 4 1000, 85358, 07516, 10109, 11282, 14333 ####[facility], [place] [id number] [place] [address] NON-HDL CHOLESTEROL 97 mg/dL Normal The [facility] Comment on above: Performed By: #### 4 1000, 51836, 90805, 69459, 69814, 94057 ####[facility] Triglyceride mass conc 157 mg/dL High 40-149 The [facility] Comment on above: Result Comment: TRIG LYCERIDE REFERENCE RANGE:20 YEARS AND OLDER CARDIOVASCULAR RISKLESS THAN 150 mg/dl LOW [id number] TO 199 mg/dl BORDERLINE [id number] mg/dl AND GREATER HIGH RISK Performed By: #### 4 1000, 85230, 05041, 28791, 43059, 79584 ####[facility] VLDL CHOL 31 mg/dL Normal 0-40 The [facility] Comment on above: Performed By: #### 4 1000, 55175, 73230, 03729, 65157, 52451 ####[facility] [place] [address], [facility] MAGNESIUM BLOODon 03-27-2017 Magnesium mass conc 1.9 mg/dL Normal 1.9-2.7 The [facility] Comment on above: Performed By: #### 4 1000, 41791, 70112, 70589, 28896, 63352 ####[facility] [place] [address], [facility] PHOSPHORUS BLOODon 7 Phosphate mass conc 3.4 mg/dL Normal 2.5-5.0 [facility] Comment on above: Performed By: #### 4 1000, 06347, 24641, 95001, 07381, 66763 ####[facility] TACROLIMUSon 03-27-2017 Tacrolimus mass conc (Bld) 3.7 ng/mL Low 5.0-20.0 The [facility] Comment on above: Result Comment: The [employer] Tacrolimus assay is a delayed one-step immunoassayfor the quantitative determination of tacrolimus in human whole bloodusing the chemiluminescent microparticle immunoassay (CMIA) technologywith flexible assay protocols, referred to as Chemiflex. Performed By: #### 4 1000, 15605, 42807, 75622, 79504, 45261 ####[facility] URIC ACID BLOODon 03-27-2017 Urate mass conc 4.1 mg/dL Normal 2.3-6.6 The [facility] Comment on above: Performed By: #### 4 1000, 11561, 86927, 38405, 38469, 31678 ####[facility] BK VIRUS QUANTITATION PCR BL OODon 02-26-2017 BKV QUANT PCR Not detected Normal The [facility] Comment on above: Result Comment: Meth od: BK virus was measured by quantitative polymerase chain reactionusing a TaqMan probe targeting the polyomavirus BK [employer]-1 gene.The lower limit of quantitation of the assay is 500 copies of BK genomeper milliliter of plasma or urine, and any detectable BK DNA below thatlevel is reported as: Detected, <500 copies/ml. Serial BK virusmeasurement can be used to monitor disease activity. (Reference:Kelsie vaughanl. J CLIN MICRO 2004; 42:4377-3929).This test was developed and its performance characteristics determinedby the [facility]. It has not been approvedby the [place] Food and Drug Administration. However, such approval is notrequired for clinical implementation, and test results have been shownto be clinically useful. This laboratory is CAP accredited and CLIAcertified to perform high complexity testing. Performed By: #### 4 1000, 73448, 56483, 29144, 79071, 47377 ####[place] [address] [address] LOG 10 COPIES Not detected Normal The [facility] Comment on above: Performed By: #### 4 1000, 71347, 32749, 49704, 48296, 18521 ####[facility] [facility].[address] CBC W/DIFFon 02-26-2017 Basophils Auto #/vol (Bld) 0.3 % Normal 0.0-2.0 [facility] Comment on above: Performed By: #### 5 0103 ####[address] Eosinophils/100 WBC Auto (Bld) 2.2 % Normal 0.0-5.0 The [facility] Comment on above: Performed By: #### 5 0103 ####[address] Erythrocyte distribution width Auto Ratio (RBC) 13.8 % Normal 11.5-16.9 The [facility] Comment on above: Performed By: #### 5 0103 ####[place] [address] [facility].[address] Hematocrit Auto Volume Fraction (Bld) 44.9 % Normal 36.0-48.0 The [facility] Comment on above: Performed By: #### 5 0103 ####[address] Hemoglobin mass conc (Bld) 15.0 g/dL Normal 12.0-15.0 The [facility] Comment on above: Performed By: #### 5 0103 ####[address] [place] [address], [facility] Lymphocytes/100 WBC Auto (Bld) 18.9 % Low 20.0-40.0 The [facility] Comment on above: Performed By: #### 5 0103 ####[facility] [place] [address], [facility] MCH Auto Entitic mass (RBC) 28.9 pg Normal 24.0-32.0 The [facility] Comment on above: Performed By: #### 5 0103 ####[facility] MCHC Auto mass conc (RBC) 33.4 g/dL Normal 32.0-36.0 The [facility] Comment on above: Performed By: #### 5 0103 ####[facility] [facility] MCV Auto Entitic volume (RBC) 86.6 fL Normal 80.0-100.0 The [facility] Comment on above: Performed By: #### 5 0103 ####[facility] [facility].[address] METHOD Normal RBC Morphology Normal [facility] Comment on above: Performed By: #### 5 0103 ####[facility]3000 [facility].[address] MONOS 11.7 % High 2-8 The [facility] Comment on above: Performed By: #### 5 0103 ####[facility] [place] [address], [facility] Neutrophils/100 WBC Auto (Bld) 66.9 % Normal 50-70 The [facility] Comment on above: Performed By: #### 5 0103 ####[facility] [place] [address], [facility] PLAT CNT 230 Thou/mm3 Normal 100-400 The [facility] Comment on above: Performed By: #### 5 0103 ####[facility] RBC Auto #/vol (Bld) 5.18 mill/mm3 Normal 3.50-5.50 T he [facility] Comment on above: Performed By: #### 5 0103 ####[facility] WBC Auto #/vol (Bld) 5.8 Thou/mm3 Normal 4.0-10.0 Th e [facility] Comment on above: Performed By: #### 5 0103 ####[facility] COMP METABOLIC PANELon 02-26 Albumin mass conc 4.7 g/dL Normal 3.5-5.7 The [facility] Comment on above: Performed By: #### 4 1000, 73461, 71875, 99067, 01317, 17280 ####[facility] [facility] ALKALINE PHOSPH 115 IU/L High 34-104 The [facility] Comment on above: Performed By: #### 4 1000, 89458, 72117, 32009, 50353, 99884 ####[facility] [facility] ALT enzyme act/vol 18 U/L Normal 7-52 The [facility] Comment on above: Performed By: #### 4 1000, 50291, 04915, 55225, 82215, 04146 ####[facility] AST enzyme act/vol 22 U/L Normal 13-39 The [facility] Comment on above: Performed By: #### 4 1000, 48045, 87362, 22530, 63067, 39747 ####[facility] [place] [address], [facility] Bilirubin mass conc 0.6 mg/dL Normal 0.3-1.0 [facility] Comment on above: Performed By: #### 4 1000, 26194, 42689, 62761, 35513, 58235 ####[facility] [place] [address], [facility] Calcium mass conc 9.8 mg/dL Normal 8.6-10.3 [facility] Comment on above: Performed By: #### 4 1000, 62564, 80631, 09507, 76875, 00645 ####[facility] [place] [address], [facility] Chloride molar conc 103 mmol/L Normal 98-107 The [facility] Comment on above: Performed By: #### 4 1000, 19691, 38067, 21247, 62069, 31690 ####[facility] [place] [address], [facility] CO2 molar conc 29 mmol/L Normal 21-31 The [facility] Comment on above: Performed By: #### 4 1000, 06290, 43453, 25267, 55031, 61535 ####[facility] [place] [address], [facility] Creatinine mass conc 0.78 mg/dL Normal 0.60-1.20 [facility] [facility] Comment on above: Performed By: #### 4 1000, 65421, 08800, 41166, 06412, 50541 ####[facility] [place] [address], [facility] GFR/1.73 sq M predicted among blacks MDRD vol rate/area (S/P/Bld) mL/min/{1.73_m2} Normal >60 The [facility] Comment on above: Performed By: #### 4 1000, 96186, 34137, 64820, 83831, 91472 ####[facility] [place] [address], [facility] GFR/1.73 sq M predicted among non-blacks MDRD vol rate/area (S/P/Bld) mL/min/{1.73_m2} Normal >60 [facility] Comment on above: Performed By: #### 4 1000, 13512, 84937, 96774, 75902, 90736 ####[facility] [place] [address], [facility] Glucose mass conc 94 mg/dL Normal 70-100 The [facility] Comment on above: Performed By: #### 4 1000, 40218, 63007, 49148, 25697, 37433 ####[facility] [place] [address], [facility] Potassium molar conc 3.8 mmol/L Normal 3.5-5.1 The [facility] Comment on above: Performed By: #### 4 1000, 68928, 21478, 89453, 27876, 31034 ####[facility] [place] [address], [facility] Protein mass conc 7.4 g/dL Normal 6.0-8.3 The [facility] Comment on above: Performed By: #### 4 1000, 31512, 85788, 47429, 58507, 47010 ####[facility] [place] [address], [place] Sodium molar conc 136 mmol/L Normal 136-145 The [facility] Comment on above: Performed By: #### 4 1000, 82409, 17899, 87352, 15457, 69565 ####[facility] [place] [address], [place] Urea nitrogen mass conc 19 mg/dL Normal 7-25 The [facility] Comment on above: Performed By: #### 4 1000, 11244, 01223, 87853, 50265, 83655 ####[facility] DIRECT BILIon 02-26-2017 Bilirubin.direct mass conc 0.1 mg/dL Normal 0.0-0.2 [facility] Comment on above: Performed By: #### 4 1000, 57564, 71072, 78330, 45753, 50004 ####[facility] EVEROLIMUS [address]ee 7 EVEROLIMUS 5.9 ng/mL Normal [facility] Comment on above: Result Comment: [...] the transplantcenter.Test developed and characteristics determined by [facility]. See Compliance Statement B: [facility]/CSPerformed by [facility],[address] [place] [address] dvb.[facility], Leonid Antonio MD - Lab. Director HEMOGLOBIN A1Con 02-26-2017 Glucose mass conc 108 mg/dL Normal 70-126 [facility] Comment on above: Performed By: #### 4 6447, 37500 ####[facility] [place] [address], [facility] Hemoglobin A1c/Hemoglobin.total mass fraction (Bld) 5.4 % Normal 4.0-6.0 The [facility] Comment on above: Performed By: #### 4 6447, 21427 ####[facility] [place] [address], [facility] LIPID PROFILEon 02-26-2017 Cholesterol in HDL mass conc 54 mg/dL Normal 23-92 The [facility] Comment on above: Result Comment: Slig ht variation in normal range could be due to gender and/or age.HDL CHOLESTEROL REFERENCE RANGE:20 years and older Cardiovascular Risk> or =60 mg/dL [id number] TO 59 mg/dL Low Risk<40 mg/dL High Risk Performed By: #### 4 1000, 95094, 95800, 54447, 35220, 91211 ####[facility] [place] [address], [facility] Cholesterol in LDL mass conc 70 mg/dL Normal 0-130 [facility] Comment on above: Result Comment: LDL IS A CALCULATIONLDL IS ONLY VALID IF THE TRIG IS LESS THAN 400. Performed By: #### 4 1000, 84733, 15424, 43758, 43023, 11769 ####[facility] [place] [address], [facility] Cholesterol mass conc 144 mg/dL Normal 120-200 The [facility] Comment on above: Result Comment: CHOL ESTEROL REFERENCE RANGE:20 YEARS AND OLDER CARDIOVASCULAR RISKLess than 200 mg/dl Low Lvsr639 to 239 mg/dl Borderline Byqo199 mg/dl and greater High Risk Performed By: #### 4 1000, 24824, 28015, 17874, 79417, 88716 ####[facility] [place] [address], [facility] Cholesterol.total/Cho lesterol in HDL mass ratio 2.7 {ratio} Normal .0-4.5 The [facility] Comment on above: Performed By: #### 4 1000, 05345, 40816, 78161, 43502, 26718 ####[facility] NON-HDL CHOLESTEROL 90 mg/dL Normal [facility] Comment on above: Performed By: #### 4 1000, 36681, 97140, 39484, 81266, 04322 ####[facility] Triglyceride mass conc 101 mg/dL Normal 40-149 [facility] Comment on above: Result Comment: TRIG LYCERIDE REFERENCE RANGE:20 YEARS AND OLDER CARDIOVASCULAR RISKLESS THAN 150 mg/dl LOW [id number] TO 199 mg/dl BORDERLINE [id number] mg/dl AND GREATER HIGH RISK Performed By: #### 4 1000, 54984, 85954, 45949, 92734, 20444 ####[facility] VLDL CHOL 20 mg/dL Normal 0-40 The [facility] Comment on above: Performed By: #### 4 1000, 13464, 72102, 14281, 66187, 52416 ####[facility] MAGNESIUM BLOODon 02-26-2017 Magnesium mass conc 1.9 mg/dL Normal 1.9-2.7 [facility] Comment on above: Performed By: #### 4 1000, 87443, 67495, 91433, 28620, 95920 ####[facility] PHOSPHORUS BLOODon 7 Phosphate mass conc 4.1 mg/dL Normal 2.5-5.0 [facility] Comment on above: Performed By: #### 4 1000, 01726, 19268, 77152, 10304, 24904 ####[facility] TACROLIMUSon 02-26-2017 Tacrolimus mass conc (Bld) 4.2 ng/mL Low 5.0-20.0 The [facility] Comment on above: Result Comment: The [employer] Tacrolimus assay is a delayed one-step immunoassayfor the quantitative determination of tacrolimus in human whole bloodusing the chemiluminescent microparticle immunoassay (CMIA) technologywith flexible assay protocols, referred to as Chemiflex. Performed By: #### 4 6447, 32860 ####[place] [address] [address] URIC ACID BLOODon 02-26-2017 Urate mass conc 4.3 mg/dL Normal 2.3-6.6 The [facility] Comment on above: Performed By: #### 4 1000, 68647, 18851, 48597, 90981, 03610 ####[address] Vital Signs Date Time Vital Sign Value Performing Clinician Facility 08-30-2023 09:220400 Body height 182.88 cm [facility] 08-30-2023 09:220400 Body mass index (BMI) [Ratio] 17.9 kg/m2 [facility] 08-30-2023 09:22-0400 Body temperature 99.8 [degF] [facility] 08-30-2023 09:22-0400 Body weight 59.87 kg [facility] 08-30-2023 09:22-0400 Diastolic blood pressure 73 mm[Hg] [facility] 08-30-2023 09:22-0400 Heart rate 67 /min [facility] 08-30-2023 09:22-0400 SaO2% (BldA) [Mass fraction] 95 % [facility] 08-30-2023 09:22-0400 Systolic blood pressure 111 mm[Hg] [facility] 03-27-2023 11:30-0500 Body height 152.4 cm Cathy Bella Other [facility] Other 03-27-2023 11:30-0500 Body mass index (BMI) [Ratio] 25.39 kg/m2 Cathy Shayne Other [facility] Other 03-27-2023 11:30-0500 Body temperature 97.5 [degF] Cathy Bella Other [facility] Other 03-27-2023 11:30-0500 Body weight 58.97 kg Cathy Shayne Other [facility] Other 03-27-2023 11:30-0500 Respiratory rate 18 /min aCthy Bella Other [facility] Other 03-27-2023 11:30-0500 SaO2% (BldA) [Mass fraction] 96 % Cathy Bella Other [facility] Other 09-21-2022 09:00-0400 Body height 152.4 cm Martha Paola Other [facility] Other 09-21-2022 09:00-0400 Body mass index (BMI) [Ratio] 22.46 kg/m2 Martha Paola Other [facility] Other 09-21-2022 09:00-0400 Body temperature 97.6 [degF] Martha Paola Other [facility] Other 09-21-2022 09:00-0400 Body weight 52.16 kg Martha Paola Other [facility] Other 09-21-2022 09:00-0400 Diastolic blood pressure 70 mm[Hg] Martha Guevara Other [facility] Other 09-21-2022 09:00-0400 Respiratory rate 18 /min Martha Guevara Other [facility] Other 09-21-2022 09:00-0400 SaO2% (BldA) [Mass fraction] 96 % Martha Guevara Other [facility] Other 09-21-2022 09:00-0400 Systolic blood pressure 107 mm[Hg] Martha Guevara Other [facility] Other 01-12-2022 13:55-0400 Body height 152.4 cm Cathy Baconler Other [facility] Other 01-12-2022 13:55-0400 Body mass index (BMI) [Ratio] 19.53 kg/m2 Cathy Bella Other [facility] Other 01-12-2022 13:55-0400 Body temperature 96.9 [degF] Cathy Bella Other [facility] Other 01-12-2022 13:55-0400 Body weight 45.36 kg Cathy Bella Other [facility] Other 01-12-2022 13:55-0400 Respiratory rate 18 /min Cathy Bella Other [facility] Other 01-12-2022 13:55-0400 SaO2% (BldA) [Mass fraction] 97 % Cathy Bella Other [facility] Other 12-28-2021 10:20-0400 Body height 152.4 cm Martha Paola Other [facility] Other 12-28-2021 10:20-0400 Body mass index (BMI) [Ratio] 21.48 kg/m2 Martha Guevara Other [facility] Other 12-28-2021 10:20-0400 Body temperature 98 [degF] Martha Paola Other [facility] Other 12-28-2021 10:20-0400 Body weight 49.9 kg Martha Guevara Other [facility] Other 12-28-2021 10:20-0400 Respiratory rate 18 /min Martha Guevara Other [facility] Other 12-28-2021 10:20-0400 SaO2% (BldA) [Mass fraction] 97 % Martha Guevara Other [facility] Other 12-25-2021 10:05-0400 Body height 152.4 cm Cathy Bella Other [facility] Other 12-25-2021 10:05-0400 Body mass index (BMI) [Ratio] 21.48 kg/m2 Cathy Bella Other [facility] Other 12-25-2021 10:05-0400 Body temperature 96 [degF] Cathy Bella Other [facility] Other 12-25-2021 10:05-0400 Body weight 49.9 kg Cathy Bella Other [facility] Other 12-25-2021 10:05-0400 Respiratory rate 18 /min Cathy Bella Other [facility] Other 12-25-2021 10:05-0400 SaO2% (BldA) [Mass fraction] 97 % Cathy Bella Other [facility] Other 10-27-2021 12:35-0400 Body height 152.4 cm Cathy Bella Other [facility] Other 10-27-2021 12:35-0400 Body mass index (BMI) [Ratio] 22.85 kg/m2 Cathy Bella Other [facility] Other 10-27-2021 12:35-0400 Body weight 53.07 kg Cathy Bella Other [facility] Other 10-27-2021 12:35-0400 Diastolic blood pressure 87 mm[Hg] Cathy Bella Other [facility] Other 10-27-2021 12:35-0400 SaO2% (BldA) [Mass fraction] 98 % Cathy Bella Other [facility] Other 10-27-2021 12:35-0400 Systolic blood pressure 130 mm[Hg] Cathy Bella Other [facility] Other 08-14-2021 10:40-0400 Body height 152.4 cm Martha Paola Other [facility] Other 08-14-2021 10:40-0400 Body mass index (BMI) [Ratio] 22.46 kg/m2 Martha Guevara Other [facility] Other 08-14-2021 10:40-0400 Body temperature 96.7 [degF] Martha Guevara Other [facility] Other 08-14-2021 10:40-0400 Body weight 52.16 kg Martha Guevara Other [facility] Other 08-14-2021 10:40-0400 Diastolic blood pressure 68 mm[Hg] Martha Guevara Other [facility] Other 08-14-2021 10:40-0400 Respiratory rate 20 /min Martha Guevara Other [facility] Other 08-14-2021 10:40-0400 SaO2% (BldA) [Mass fraction] 98 % Martha Guevara Other [facility] Other 08-14-2021 10:40-0400 Systolic blood pressure 144 mm[Hg] Martha Guevara Other [facility] Other Encounters Encounter Date Encounter Type Care Provider Facility Start: 02-13-2024 End: 02-13-2024 [facility] Result Encounter Generic External Data Provider [facility] External [facility] Unsolicited Start: 02-13-2024 End: 02-13-2024 [facility] Result Encounter Generic External Data Provider [facility] External Department Unsolicited Start: 01-14-2024 End: 01-14-2024 [facility] Result Encounter Generic External Data Provider [facility] External Department Unsolicited Start: 01-14-2024 End: 01-14-2024 [facility] Result Encounter Generic External Data Provider [facility] External Department Unsolicited Start: 12-15-2023 End: 12-15-2023 [facility] Result Encounter Generic External Data Provider [facility] External Department Unsolicited Start: 12-15-2023 End: 12-15-2023 [facility] Result Encounter Generic External Data Provider [facility] External Department Unsolicited Start: 09-23-2023 End: 09-23-2023 [facility] Start: 09-02-2023 End: 09-02-2023 ambulatory ESTER Townsend HEMMER Not Available Start: 08-30-2023 End: 08-30-2023 ambulatory [facility] Work Phone: Start: 08-30-2023 End: 08-30-2023 Patient encounter procedure [facility] Work Phone: Start: 04-02-2023 End: 04-02-2023 ambulatory RAMON CARROLL Not Available Start: 03-27-2023 End: 03-27-2023 ambulatory Cathy Bella Other [facility] Other Start: 03-27-2023 Office outpatient visit 25 minutes Cathy Bella [facility] Start: 03-17-2023 End: 03-17-2023 ambulatory [facility] Start: 03-06-2023 End: 03-06-2023 ambulatory ESTER Townsend HEMMER Not Available Start: 02-12-2023 End: 02-12-2023 ambulatory ESTER Townsend HEMMER Not Available Start: 09-21-2022 End: 09-21-2022 ambulatory Martha Guevara Other [facility] Other Start: 09-21-2022 Office outpatient visit [...] Start: 03-11-2022 End: 03-12-[address] DOCTOR MISC Facility:[facility] Start: 02-08-2022 End: 02-09-[address] DOE BRIDGES Facility:[facility] Start: 01-28-2022 End: 01-29-[address] DOCTOR MISC Facility:[facility] Start: 01-12-2022 End: 01-12-2022 ambulatory Cathy Bella Other [facility] Other Start: 01-12-2022 Office outpatient visit 15 minutes Cathy Shayne [facility] Start: 01-07-2022 End: 01-07-2022 ambulatory ISATU GUAMAN . Facility:[facility] Start: 01-03-2022 End: 01-04-[address] VIRGIL SWIFT Facility:[facility] Start: 12-28-2021 End: 12-28-2021 ambulatory Martha Guevara Other [facility] Other Start: 12-28-2021 Office outpatient visit 15 minutes Marthajd Guevara [facility] Start: 12-25-2021 End: 12-25-2021 ambulatory Cathy Bella Other [facility] Other Start: 12-25-2021 Office outpatient visit 25 minutes Cathy Bella [facility] Start: 12-05-2021 End: 12-06-[address] DOCTOR MISC Facility:[facility] Start: 11-07-2021 End: 11-08-[address] DOCTOR MISC Facility:[facility] Start: 10-27-2021 End: 10-27-2021 ambulatory Cathy Bella Other [facility] Other Start: 10-27-2021 Office outpatient visit 15 minutes Cathy Shayne [facility] Start: 10-15-2021 End: 10-16-[address] DOCTOR MISC Facility:[facility] Start: 10-08-2021 End: 10-09-[address] DOCTOR MISC Facility:[facility] Start: 09-10-2021 End: 06-14-[address] DOCTOR MISC Facility:[facility] Start: 08-14-2021 End: 08-14-2021 ambulatory Martha Guevara Other [facility] Other Start: 08-14-2021 Office outpatient visit 15 minutes Martha Guevara [facility] Start: 12-31-2017 End: 01-01-2018 Patient encounter VIRGIL HAYNES Facility:[facility] Start: 12-25-2017 End: 12-26-2017 Patient encounter ROSALINDA ROSENBAUM Facility:[facility] Start: 10-30-2017 End: 10-31-2017 Patient encounter ROSALINDA ROSENBAUM Facility:[facility] Start: 10-23-2017 End: 10-24-2017 Patient encounter ROSALINDA ROSENBAUM Facility:[facility] Start: 09-25-2017 End: 09-26-2017 Patient encounter ROSALINDA ROSENBAUM Facility:[facility] Start: 08-26-2017 End: 08-27-2017 Patient encounter ROSALINDA ROSENBAUM Facility:[facility] Start: 07-23-2017 End: 07-24-2017 Patient encounter ROSALINDA ROSENBAUM Facility:[facility] Start: 06-20-2017 End: 06-21-2017 Patient encounter ROSALINDA ROSENBAUM Facility:[facility] Start: 05-27-2017 End: 05-28-2017 Patient encounter ROSALINDA ROSENBAUM Facility:[facility] Start: 04-29-2017 End: 04-30-2017 Patient encounter ROSALINDA ROSENBAUM Facility:[facility] Start: 03-27-2017 End: 03-28-2017 Patient encounter ROSALINDA ROSENBAUM Facility:[facility] Start: 02-26-2017 End: 02-27-2017 Patient encounter DOE BRIDGES Facility:[facility] Procedures Date Procedure Procedure Detail Performing Clinician Start: 02-13-2024 ALL CBC WITH AUTO DIFF Generic External Data Provider Start: 02-13-2024 ALL MAGNESIUM Generic E xternal Data Provider Start: 02-13-2024 ALL PHOSPHOROUS Generic External Data Provider Start: 02-13-2024 ALL URIC ACID Generic E xternal Data Provider Start: 02-13-2024 [facility] CMP (CMP) (FOR REMOTE [facility] USE) Generic External Data Provider Start: 02-13-2024 METRO BILIRUBIN, DIRECT Generic External Data Provider Start: 11-15-2024 TACROLIMUS (FK506), BLOOD Generic External Data Provider Start: 02-11-2024 Mammography Generic Pr ovider Start: 01-14-2024 ALL CBC WITH AUTO DIFF Generic External Data Provider Start: 12-15-2023 ALL CBC WITH AUTO DIFF Generic External Data Provider Start: 12-15-2023 MLR HEMOGLOBIN A1C Gene juve External Data Provider Start: 08-30-2023 Quick Strep (POC) Start: 01-29-2023 History of renal transplant Renal transplant recipient Generic Provider Start: 07-23-2022 Mammography Generic Pr ovider Start: 08-14-2021 Piperacillin/tazobactam Martha Guevara Other Start: 07-28-2017 Colonoscopy Generic Pr ovider Plan of Treatment Date Care Activity Detail Author Start: 07-29-2027 Screening for malign ant neoplasm of colon [facility] Start: 02-14-2026 Screening for malign ant neoplasm of colon FIT-DNA [facility] Start: 02-10-2025 Screening for malign ant neoplasm of breast Mammogram [facility] Start: 04-02-2024 Medicare Annual Well ness (AWV) Medicare Annual Wellness (AWV) [facility] Start: 11-30-2023 Influenza vaccination Influenza Vacc ine (#1) [facility] Start: 07-24-2023 Screening for malign ant neoplasm of breast Mammogram [facility] Start: 1961 Pneumococcal Vaccine : 65+ Years (1 of 2 - PCV) Pneumococcal Vaccine: 65+ Years (1 of 2 - PCV) [facility] Start: 1955 Screening for malign ant neoplasm of colon [facility] Immunizations Immunization Date Immunization Notes Care Provider Heri wang 01-10-2023 Influenza, Seasonal, Quadrivalent, Adjuvanted Generic Provider [facility] 01-10-2023 influenza virus vaccine, unspecified formulation Generic Provider [facility] 09-16-2022 zoster vaccine recombinant Generic Provider [facility] 07-22-2022 zoster vaccine recombinant Generic Provider [facility] 02-19-2022 Influenza, injectabl e, Madin Trego Canine Kidney, preservative free, quadrivalent Generic Provider [facility] 02-19-2022 SARS-COV-2 (COVID-19 ) vaccine, mRNA, spike protein, LNP, bivalent, PF Generic Provider [facility] 01-09-2021 influenza, seasonal, injectable Generic Provider [facility] 12-12-2019 influenza, injectabl e, quadrivalent, preservative free [facility] 12-26-2018 influenza, injectabl e, quadrivalent, contains preservative Generic Provider [facility] 01-21-2018 influenza, injectabl e, quadrivalent, contains preservative Generic Provider [facility] 12-29-2017 influenza, injectabl e, quadrivalent, preservative free [facility] 12-20-2016 influenza, injectabl e, quadrivalent, preservative free Generic Provider [facility] 12-02-2016 seasonal influenza, intradermal, preservative free [facility] 01-16-2015 influenza, injectabl e, quadrivalent, preservative free Generic Provider [facility] 03-16-2009 influenza virus vaccine, split virus (incl. purified surface antigen) Martha Guevara Other [facility] Other 03-16-2009 influenza virus vaccine, unspecified formulation [facility] Payers Date Payer Category Payer Medicare [employer]IC[employer] ADVANTAGE [facility] MEDICARE ADVANTAGE [id number] 2021-Present [address] [place] [id number] 2021 Medicare (Managed Care) [facility] ADVANTAGE [id number] 1959 [facility] [id number] [id number] 1959 Self-pay 1959 Unknown [id number] 1956 Unknown [id number] 2.16.840.1.721294.3.579. 2.647 1956 Unknown [id number] 2.16.840.1.932242.3.579. 2. 1956 Unknown [id number] 2.16.840.1.543408.3.579. 2. 1956 Unknown [id number] 2.16.840.1.405439.3.579. 2. 1956 Unknown [id number] 2.16.840.1.155464.3.579. 2. 1956 Unknown [id number] 2.16.840.1.985057.3.579. 2. 1956 Unknown [id number] 2.16.840.1.935899.3.579. 2. 1956 Unknown [id number] 2.16.840.1.227398.3.579. 2.647 1956 Unknown [id number] 2.16.840.1.050529.3.579. 2. 1956 Unknown [id number] 2.16.840.1.730162.3.579. 2.647 1956 Unknown [id number] 2.16.840.1.408689.3.579. 2. 1956 Unknown [id number] 2.16.840.1.887468.3.579. 2. 1956 Unknown [id number] 2.16.840.1.234252.3.579. 2.593 1956 Unknown [id number] 2.16.840.1.728769.3.579. 2.593 1956 Unknown [id number] 2.16.840.1.042198.3.579. 2.593 1956 Unknown [id number] 2.16.840.1.360989.3.579. 2.593 1956 Unknown [id number] 2.16.840.1.918466.3.579. 2.593 1956 Unknown [id number] 2.16.840.1.924058.3.579. 2.593 1956 Unknown [id number] 2.16.840.1.678548.3.579. 2.593 1956 Unknown [id number] 2.16.840.1.518409.3.579. 2.593 1956 Unknown [id number] 2.16.840.1.797139.3.579. 2.593 1956 Unknown [id number] 2.16.840.1.192506.3.579. 2.593 1956 Unknown [id number] 2.16.840.1.533374.3.579. 2.593 1956 Unknown [id number] 2.16.840.1.929747.3.579. 2.593 1956 Unknown [id number] 2.16.840.1.891154.3.579. 2.593 1956 Unknown [id number] 2.16.840.1.672904.3.579. 2.593 1956 Unknown [id number] 2.16.840.1.975646.3.579. 2.593 1956 Unknown [id number] 2.16.840.1.801846.3.579. 2.1259 1956 Unknown [id number] 2.16.840.1.457362.3.579. 2.1259 1956 Unknown [id number] 2.16.840.1.576201.3.579. 2.1259 1956 Unknown [id number] 2.16.840.1.157244.3.579. 2.1259 Unknown [id number] 2.16.840.1.110690.3.579. 2.593 Unknown Amy BC/BS [id number] Social History Date Type Detail Facility Unknown if ever smoked [facility] Other Start: 04-02-2023 End: 09-02-2023 Sex Assigned At [facility] Other Start: 01-29-2023 End: 08-30-2023 Tobacco smoking status NHIS Never smoked tobacco (finding) [facility] Start: 1955 Sex Assigned At Female [facility] Start: 01-29-2023 Tobacco use and exposure Smokeless tobacco non-user [facility] Start: 09-02-2023 Alcoholic beverage intake Lifetime non-drinker (finding) [facility] Start: 04-02-2023 End: 09-02-2023 History of Social function [facility] Start: 1955 Sex assigned at Not on file N [facility] Clinical Notes 11-10-2007 to 12-18-2023 Note Date & Type Note Facility 12-18-2023 Note Will review by phone today with Dr. Negro Vivas tac level 3.9 for 2 consecutive months and if any dose changes, will notify this pt and amend this note. Most recent IR tacrolimus dosing on record is 0.5mg BID [facility] 12-09-2023 Note Prior auth for Mycop henolate was submitted via cm Approved- scanned into media Keycode: [id number] [facility] 11-26-2023 Note Prior auth submitted via [facility] PA Case: [id number], Status: Approved, Coverage Starts on: 08/27/2023 12:00:00 AM, Coverage Ends on: 11/25/2024 12:00:00 AM Keycode: [id number] [facility] 09-23-2023 Note 09/23/23 Chief Complaint Patient presents with Kidney Follow-up Pt has been having sores in her mouth for the past month. PCP: Ramon Carroll MD Txp Referring: Preferred Pharmacy: [facility] - [place], [place] - [address] [facility] [address] [id number] [place], [place] [facility] [address] [facility] [address] [facility] [address] [facility] [phone] [facility] - [place], [place] - [address] [facility] [address] [facility] [address] [facility] [address] Subjective Visit Vitals BP 139/74 (BP Location: Left arm, Patient Position: Sitting, BP Cuff Size: Adult) Pulse 59 Temp 36.3 ???C (97.3 ???F) (Oral) Resp 18 Ht 1.524 m (5') Wt 58.5 kg (129 lb) SpO2 99% BMI 25.19 kg/m??? OB Status Postmenopausal Smoking Status Never BSA 1.57 m??? No Known Allergies Medication Documentation Review Audit Reviewed by Ester Welsh MA (Staff Software Engineer) on 09/23/23 at 0859 Medication Order Taking? Sig Documenting Provider Last Dose Status amLODIPine (Norvasc) 5 mg tablet [id number] Yes TAKE 1 TABLET BY MOUTH EVERY DAY Virgil Haynes NP Taking Active amoxicillin (Amoxil) 500 mg capsule [id number] No 1 capsule every 8 (eight) hours. Historical Provider, Not Taking Active atorvastatin (Lipitor) 20 mg tablet [id number] Yes TAKE 1 TABLET BY MOUTH EVERY DAY AT BEDTIME Virgil Haynes NP Taking Active baclofen (Lioresal) 10 mg tablet [id number] No Historical Provider, Not Taking Active cyanocobalamin (Vitamin B-12) 500 mcg tablet [id number] Yes in the morning. Historical Provider, Taking Active magnesium oxide (Mag-Ox) 400 mg (241.3 mg magnesium) tablet [id number] Yes Take 400 mg by mouth in the morning. Historical Provider, Taking Active mycophenolate (Myfortic) 180 mg EC tablet [id number] Yes TAKE 4 TABLETS BY MOUTH IN THE MORNING AND AT BEDTIME Patient taking differently: Take 540 mg by mouth in the morning and at bedtime. Doe Bridges MD Taking Active omega-3 fatty acids-fish oil (Fish OiL Extra Strength) 435-880 mg capsule [id number] Yes 1 capsule 1 (one) time each day at the same time. Historical Provider, Taking Active PARoxetine (Paxil) 10 mg tablet [id number] Yes Take 10 mg by mouth in the morning. Historical Provider, Taking Active potassium gluconate 595 mg (99 mg) tablet [id number] Yes every 12 (twelve) hours. Historical Provider, Taking Active spironolactone (Aldactone) 25 mg tablet [id number] Yes TAKE 1 TABLET BY MOUTH EVERY DAY Virgil Haynes NP Taking Active tacrolimus (Prograf) 0.5 mg capsule [id number] Yes TAKE ONE CAPSULE BY MOUTH EVERY [...] Tx 2013, APKD. Continues to see PCP: Marilin. Pt reports current oral thrush and in [...] meds and MONTHLY Labs with New [facility] standing Order given today. Follow up 6 months or sooner if needed. See Derm See PCP as scheduled: Dr Carroll. Tory Mouthwash script provided. Chart Review today: 03.17.23 Pt presents visit with . Pt states labs done Last week in [facility] and [place] calling for results. Pt seeing Derm in [place] for lesion: forearm and other lesions. Hx: melanoma PCP: local Dr Khoury (more content not included)... [facility] 03-27-2023 Evaluation note Encounter Date Diagnosis Assessment Notes Feb, Contact with and (suspected) exposure to covid-19 (ICD-10 - Z20.822) Feb, Viral URI (ICD-10 - J06.9) Advised patient that COVID/Influenza A/B/RSV test and rapid Strep test was negative today. Advised patient that will treat as viral URI. Supportive care as directed, increase fluids and rest, Tylenol as directed, rx of Plain, cool mist humidifier, throat lozenges. Discussed infection [...] condition. Feb, Sore throat (ICD-10 - J02.9) [employer] Other 12-18-2023 Note03/17/23 Chief Complaint Patient presents with Kidney Follow-up Patient would like to know if Virgil would prescribe depression medication. PCP: Raomn Carroll MD Txp Referring: Preferred Pharmacy: [facility] - [place], [place] - [address] [facility] [address] [id number] - [place], [place] - [address] [facility] [address] [facility] [address] [facility] [phone] [facility] - [place], [place] - [address] [facility] [address] Subjective Visit Vitals BP 142/80 (BP Location: Right arm, Patient Position: Sitting) Pulse 63 Temp 36.3 ???C (97.4 ???F) (Oral) Ht 1.524 m (5') Wt 60.6 kg (133 lb 9.6 oz) BMI 26.09 kg/m??? Smoking Status Never BSA 1.6 m??? No Known Allergies Medication Documentation Review Audit Reviewed by Tosha Lagos MA (Staff Software Engineer) on 03/17/23 at 0956 Medication Order Taking? Sig Documenting Provider Last Dose Status amLODIPine (Norvasc) 5 mg tablet [id number] Yes TAKE 1 TABLET BY MOUTH EVERY DAY Virgil Haynes NP Taking Active amoxicillin (Amoxil) 500 mg capsule [id number] No 1 capsule every 8 (eight) hours. Historical ProviderMD Not Taking Active atorvastatin (Lipitor) 20 mg tablet [id number] Yes TAKE 1 TABLET BY MOUTH EVERY DAY AT BEDTIME Virgil Haynes NP Taking Active baclofen (Lioresal) 10 mg tablet [id number] Yes Historical ProviderMD Taking Active cyanocobalamin (Vitamin B-12) 500 mcg tablet [id number] No in the morning. Historical ProviderMD Not Taking Active magnesium oxide (Mag-Ox) 400 mg (241.3 mg magnesium) tablet [id number] Yes Take 400 mg by mouth in the morning. Historical ProviderMD Taking Active mycophenolate (Myfortic) 180 mg EC tablet [id number] Yes TAKE 4 TABLETS BY MOUTH IN THE MORNING AND AT BEDTIME Doe Bridges MD Taking Active omega-3 fatty acids-fish oil (Fish OiL Extra Strength) 435-880 mg capsule [id number] No 1 capsule 1 (one) time each day at the same time. Historical MD Blanche Not Taking Active PARoxetine (Paxil) 10 mg tablet [id number] Yes Take 10 mg by mouth in the morning. Historical Provider, Taking Active potassium gluconate 595 mg (99 mg) tablet [id number] No every 12 (twelve) hours. Historical Provider, Not Taking Active spironolactone (Aldactone) 25 mg tablet [id number] Yes TAKE 1 TABLET BY MOUTH EVERY DAY Virgil Haynes NP Taking Active tacrolimus (Prograf) 0.5 mg capsule [id number] Yes TAKE ONE CAPSULE BY MOUTH EVERY [...] states labs done Last week in [facility] and [place] calling for results. [...] Pt AGAIN instructed to use our [facility] Transplant standing order for her monthly labs. Pt reports B/P stable at home Discussed hydration PLan of Care: Continue meds and MONTHLY Labs with [facility] standing Order. Follow up 6 months [...] ; Creat 0.9 ; (more content not included)...[facility]10-18-2023 Note Reviewed Ext Tac 3.6 over the phone with Dr. Vivas, per phone order no changes at this time.[facility]10-15-2022 Evaluation note* Encounter Date Diagnosis Assessment Notes [...] understanding and is agreeable with treatment plan [employer] Other 09-30-2022 Evaluation note* Encounter Date [...] no improvement in 2 to 3 days. [employer] Other 09-27-2022 Evaluation note* Encounter Date [...] treatment plan. Patient left in stable condition [employer] Other 07-30-2022 Evaluation note* Encounter Date [...] verbalizes understanding and agrees with treatment plan [employer] Other 05-17-2022 Evaluation note* Encounter Date [...] days July, Hematuria, unspecified (ICD-10 - R31.9) [employer] Other 08-12-2008 History general Narrative - Reported* Type Description Date Medical History PKD found in 1982 when she had a son Medical History hypertension Medical History kidney transplant Surgical History resection of superior cervical mass 11/10/07 Surgical History Teeth extraction in preparation for renal transplant Surgical History portacath placement Surgical History kidney transplant 2014 Hospitalization History see above [employer] Other Evaluation noteNort [facility] Other Evaluation note* Diagnosis Onset Date Resolution Status Thrush, oral acute Sore throat noneactive [facility] Work Phone: History general Narrative - [place] [place] [facility] Other Summary Purpose Family History Relationship Condition [...] section and content) DATE CREATED AUTHOR 01/30/2018 [facility] DATE CREATED AUTHOR AUTHOR'S ORGANIZ ATION 08/17/2021 [facility] DATE CREATED AUTHOR AUTHOR'S ORGANIZ ATION 08/13/2022 [facility] DATE CREATED AUTHOR AUTHOR'S ORGANIZ ATION 09/03/2023 [facility] EPIC DATE CREATED AUTHOR AUTHOR'S ORGANIZ ATION 12/20/2023 [place] REASON FOR VISIT (unrecogniz ed section and content) DYSURIADYSURIADYSURIAPOSS RA SH ON BACK, ITCHINGDODGE JOURNEY, SORE THROAT, COUGHBLACK DODGE JOURNT SORE THROATIN CAR, MOUTH SORES, CALL [phone] THROAT, COUGHING, DRAINAGE Care Teams (unrecognized sec tion and content) Team Status: Active Member Role Status Dates Shelly May Primary Care Provider Active Team Status: Inactive Member Role Status Dates Shelly May Primary Care Provider Active Start: August 30, 2023 End: August 30, 2023 Lindsay Soria APRN Attending Provider Active Start: August 30, 2023 End: August 30, 2023 Medical Insurance Biller Relationship Specialty Start Date End Date Ramon Carroll MD [address] [place] [address] PCP - Amy FERREIRA 04/08/21 Ramon Carroll MD [address] [place] [address] PCP - General Internal Medicine 08/06/22 Medical Insurance Biller Relationship Specialty Start Date End Date Ramon Carroll MD [address] [place] [address] PCP - Amy FERREIRA 04/08/21 Ramon Carroll MD [address] [place] [address] PCP - General Internal Medicine 08/06/22 Medical Insurance Biller Relationship Specialty Start Date End Date Ramon Carroll MD [address] [place] [address] PCP - Amy FERREIRA 04/08/21 Ramon Carroll MD [address] [facility] [address] [place] [address] PCP - General Internal Medicine 08/06/22 Goals [...] BE BASED ON THE PRIMARY CLINICAL RECORDS. [employer] provides no warranty or guarantee of the accuracy or completeness of information in this document.
[2024-03-19 07:02] LABS: Basophils Percent Auto 0.2 % (0.2-2.0); Eosinophils Absolute Auto 0.2 10^3/uL (0.0-0.7); Eosinophils Percent Auto 2.2 % (0.9-7.0); Hematocrit 45.3 % (36.0-48.0); Hemoglobin 14.4 g/dL (12.0-16.0); Immature Granulocytes Abs Auto 0.02 10^3/uL (0.00-0.03); Immature Granulocytes Pct Auto 0.2 % (0.0-0.5); Lymphocytes Absolute Auto 1.5 10^3/uL (1.2-3.8); Lymphocytes Percent Auto 18.6 % (20.5-60.0); Mean Corpuscular HGB Conc 31.8 g/dL (29.9-35.2); Mean Corpuscular Hemoglobin 30.6 pg (26.7-34.0); Mean Corpuscular Volume 96.4 fL (81.0-99.0); Mean Platelet Volume 11.4 fL (9.5-13.5); Monocytes Absolute Auto 0.8 10^3/uL (0.3-0.8); Neutrophils Absolute Auto 5.5 10^3/uL (1.4-6.5); Neutrophils Percent Auto 68.8 % (43.0-75.0); Platelet Count 197 10^3/uL (150-450); Red Cell Distribution Width 14.8 % (11.0-15.0); White Blood Count 8.1 10^3/uL (4.0-11.0)
[2024-03-19 08:40] LABS: Alanine Aminotransferase 19 U/L (14-59); Albumin Globulin Ratio 1.2; Albumin Level 3.7 g/dL (3.4-5.0); Alkaline Phosphatase 140 U/L (46-116); Anion Gap 13.6; Aspartate Amino Transferase 14 U/L (15-37); BUN Creatinine Ratio 19.4; Bilirubin Direct 0.1 mg/dL (0.0-0.2); Bilirubin Total 0.4 mg/dL (0.2-1.0); Calcium 9.6 mg/dL (8.5-10.1); Carbon Dioxide 28.5 mmol/L (21.0-32.0); Chloride 106 mmol/L (98-107); Estimated GFR (African America >60 (>=60 mL/min/1.73m^2); Estimated GFR (Non-African Ame 57 (>=60 mL/min/1.73m^2); Globulin 3.2 g/dL; Glucose 86 mg/dL (74-106); Magnesium 1.9 mg/dL (1.8-2.4); Phosphorus 3.9 mg/dL (2.6-4.7); Potassium 4.1 mmol/L (3.5-5.1); Sodium 144 mmol/L (136-145); Total Protein 6.9 g/dL (6.4-8.2)
[2024-03-22 12:07] LABS: Tacrolimus (FK506), Blood 4.4 ng/mL (2.0-20.0)
== END 2024-03-19 06:38 | disposition home or self-care (01) ==
LOC: LAB 06:39
PROVIDERS: PCP Internal Medicine
DX: Z94.0 Kidney transplant status (principal); E13.9 Other specified diabetes mellitus without complications
CPT/HCPCS: 36415; 80053; 80197; 82248; 83735; 84100; 84550; 85025

== ENCOUNTER 2024-04-19 06:38 | Outpatient (OUT) | payer MEDICARE, SELFPAY ==
--- OUTSIDE RECORDS SUMMARY | 2024-04-19 06:44 | XMS_ITS | CCD ---
Author Organization [facility] Inform ion [facility] Care Team Providers Care Sleeve Turner Name Role Phone ANGOON, DINKAR Unavailable Unavailable ANGOON, DINKAR Unavailable Unavailable CARROLL, RAMON Unavailable Unavailable [...] Attending Unavailable MISC, DR OBRIEN Admitting Unavailable ANGOON, DR CONNORS Consulting Unavailable CARROLL, DR DARBY Primary Care Unavailable MISC, DR OBRIEN Attending Unavailable MISC, DR OBRIEN Admitting Unavailable MISC, DR OBRIEN Attending Unavailable MISC, DR OBRIEN Admitting Unavailable MISC, DR OBRIEN Consulting Unavailable CARROLL, DR DARBY Primary Care Unavailable ANGOON, DR CONNORS Consulting Unavailable ANGOON, DR CONNORS Attending Unavailable CARROLL, DR DARBY Primary Care Unavailable ANGOON, DR CONNORS Admitting Unavailable ANGOON, DR CONNORS Attending Unavailable CARROLL, DR DARBY Primary Care Unavailable ANGOON, DR CONNORS Admitting Unavailable ANGOON, DR CONNORS Consulting Unavailable MISC, DR OBRIEN [...] MISC, DR OBRIEN Admitting Unavailable MISC, DR ORBIEN Consulting Unavailable CARROLL, DR DARBY Primary Care Unavailable ANGOON, DR CONNORS Consulting Unavailable ANGOON, DR CONNORS Attending Unavailable CARROLL, DR DARBY Primary Care Unavailable ANGOON, DR CONNORS Admitting Unavailable MISC, DR OBRIEN Attending Unavailable MISC, DR OBRIEN Admitting Unavailable MISC, DR OBRIEN Consulting Unavailable CARROLL, DR DARBY Primary Care Unavailable MISC, DOCTOR Attending Unavailable MISC, DR OBRIEN Admitting Unavailable MISC, DR OBRIEN Consulting Unavailable DR RAMON CARROLL Primary Care Unavailable ANGOON, DR CONNORS Consulting Unavailable ANGOON, DR CONNORS Attending Unavailable ANGOON, DR CONNORS Admitting Unavailable DR RAMON CARROLL Primary Care Unavailable RAMON CARROLL Attending Unavailable ESTER PADILLA Attending Unavailable ESTER PADILLA Attending Unavailable ESTER PADILLA Attending Unavailable Ramon Carroll MD Unavailable Ramon Carroll MD Primary Care Provider VIRGIL HAYNES Attending Unavailable ASHLI CARTER Attending Unavailable Medications Current Medications Medication Drug Class(es) Dates Sig (Normalized) Sig (Original) [id number] 200 actuat albuterol 0.09 mg/actuat metered dose inhaler (1 source) beta2-Adrenergic Agonist Start: 12-28-2021 take 2 puff(s) by inhalation four times daily as needed Albuterol Sulfate HFA 108 (90 Base) MCG/ACT 2 puffs Inhalation 4 times a day prn 30 Nov, 2021 Active amLODIPine 5 mg oral tablet (14 sources) Dihydropyridine Calcium Channel Eleonora Start: 11-26-2022 take 1 tablet by mouth in the morning amLODIPine (Norvasc) 5 MG tablet Take 5 mg by mouth in the morning. 11/26/2022 Active amLODIPine Besyl ate Active atorvastatin 20 mg oral tablet (5 sources) HMG-CoA Reductase Inhibitor Start: 08-30-2023 take 20 mg by mouth once daily at bedtime Atorvastatin Active 20 MG PO Daily at bedtime August 30, 2023 12:00am baclofen 10 mg oral tablet (4 sources) gamma-Aminobutyr ic Acid-ergic Agonist Start: 03-06-2023 [...] 1.5 mg/ml oral solution (1 source) Uncompetitive T-djprat-Z-asparta te Receptor Antagonist, Sigma-1 Agonist Start: 03-27-2023 take 10 mL by mouth every eight hours [place] DM 7.5-7.5 MG/5ML 10 mL Orally every 8 hours for 5 days Feb, Active ergocalciferol 1.25 mg oral capsule (9 sources) Provitamin D2 Compound Start: 06-27-2011 take 1 capsule by mouth every week Vitamin D (Ergocalciferol) 85547 UNIT 1 capsule Orally Once a Week for 90 days May, Active Start: 06-27-2011 everolimus (6 sources) Kinase Inhibitor, mTOR Inhibitor Immunosuppressant Zortress Active ferrous fumarate 325 mg oral tablet (5 sources) Start: Ferrous Fumarate 325 (106 Fe) [...] day for 30 day(s) Active Fish Oils (13 sources) omega-3 (fish oi l) 435 MG [...] 12:00am magnesium oxide 400 mg oral capsule (13 sources) magnesium oxide 400 MG capsule Take [...] acid 180 mg delayed release oral tablet (4 sources) Antimetabolite Immunosuppressant Start: 01-27-2023 take 3 tablets by mouth in the morning mycophenolate (Myfortic) 180 MG EC tablet Take 3 tablets by mouth in the morning and 3 tablets before bedtime. 01/27/2023 Active nystatin 225703 unt/ml oral suspension (5 sources) Polyene Antifungal Start: 09-02-2023 take 5 mL by mouth four times daily nystatin (Mycostatin) 054358 UNIT/ML suspension Indications: Thrush, oral SWISH AND SWALLOW 5 MLS ORALLY 4 TIMES A DAY FOR 10 DAYS 60 mL 1 09/02/2023 Active Start: 08-30-2023 take 1 mL by mouth f our times daily Nystatin Active 5 ML PO Four times daily 200 10 August 30, 2023 12:00am swish and swallow [place] 1-Gmu-Evc-Fish Oil (Fish Oil) 1,000 mg (120 mg-180 mg) capsule (1 source) Start: 08-30-2023 take 1 capsule by mouth once daily [place] 4-Riq-Trq-Fish Oil (Fish Oil) 1,000 mg (120 mg-180 mg) capsule Active 1 CAP PO Daily August 30, 2023 12:00am PARoxetine hydrochloride 20 mg oral tablet (5 sources) Serotonin Reuptake Inhibitor Start: 08-30-2023 Paroxetine [...] day for 2 day(s) July, Active Potassium (13 sources) Potassium 99 MG tablet 1 (one) [...] 2023 12:00am spironolactone 25 mg oral tablet (14 sources) Aldosterone Antagonist Start: 08-30-2023 take 25 mg by mouth once daily Spironolactone Active 25 MG PO Daily August 30, 2023 12:00am Spironolactone A ctive tacrolimus 0.5 mg oral capsule (14 sources) Calcineurin Inhibitor Immunosuppressant Start: 01-24-2023 tacrolimus [...] Virus Nucleoside Analog DNA Polymerase Inhibitor Start: 07-10-2021 take 2 tablets by mouth every twelve hours valACYclovir HCl 1 GM 2 tablet Orally twice a day for 1 days Sep, Active Vitamin B-12 500 MCG (7 sources) take 1 tablet by mouth once daily Vitamin B-12 500 MCG 1 tablet Orally Once a day for 30 day(s) Active vitamin B12 (7 sources) Vitamin B12 Start: 08-30-2023 take 1 [...] morning. Active take 1 tablet by tremaine every twenty-four hours Vitamin B-12 500 MCG [...] Not-Taking/PRN Start: 12-25-2021 take 1 capsule by [facility] every eight hours Tessalon Perles [...] Problem Date Documented Date Episodic/Chronic Anxiety disorders (7 sources) Mixed anxiety and depressive disorder; Translations: [...] diabetes mellitus without complications] Onset: 4 Chronic Diabetes mellitus without complication (2 sources) Impaired fasting glucose; Translations: [Impaired fasting glucose] Onset: 5 Episodic Disorders of lipid metabolism (8 sources) Hyperlipidemia, unspecified; Translations: [Hypercholesterolemia] Onset: 2 08-30-2023 Chronic Essential hypertension (11 sources) Hypertensive disorder; Translations: [HTN] Onset: 2 08-30-2023 Chronic Fluid and electrolyte disorders (3 sources) Hyperosmolality and or hypernatremia; Translations: [Hyperosmolality and/or hypernatremia] Episodic Genitourinary congenital anomalies (8 sources) Multiple congenital cysts of kidney; Translations: [Polycystic kidney, unspecified type] Onset: 4 08-30-2023 Chronic Immunizations and screening for infectious disease (6 sources) Contact with and (suspected) exposure to other viral communicable diseases; Translations: [Contact with and (suspected) exposure to other viral communicable diseases] Episodic Menopausal disorders (4 sources) Decreased estrogen level; 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-2023 Chronic Mood disorders (4 sources) Moderate major depression, single episode; Translations: [Major depressive disorder, single episode, moderate] Onset: 3 03-06-2023 Chronic Other acquired deformities (4 sources) Contracture of joint of foot; Translations: [...] COUGH, UNSPECIFIED; Translations: [COUGH, UNSPECIFIED] Onset: 2 Viral infection (1 source) COVID-19; Translations: [COVID-19] Onset: 2 Past or Other Problems Problem Classification Problem Date Documented Da te Episodic/Chronic Diseases of mouth; excluding dental (5 sources) Other lesions of oral mucosa; Translations: [Parotitis] Onset: 01-29-2023 Resolved: 01-30-2023 Episodic Genitourinary symptoms and ill-defined conditions (10 sources) Hematuria, unspecified; Translations: [Dysuria] Onset: 12-31-2017 Resolved: 08-14-2021 Episodic Mood disorders (4 sources) Mood disorders Onset: 01-30-2023 01-30-2023 Mycoses (6 sources) Candidiasis of mouth; Translations: [Candidal stomatitis] Onset: 09-02-2023 08-30-2023 Episodic Other aftercare (1 source) Encounter for therapeutic drug level monitoring; Translations: [ENCOUNTER FOR THERAPEUTIC DRUG LEVEL MONITORING] Onset: 03-27-2017 Episodic Other aftercare (2 sources) Other exterminator termite (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 therapy; Translations: [OTHER STEWARD/STEWARDESS SECOND CLASS (CURRENT) DRUG THERAPY] Onset: 02-26-2017 Episodic Other liver diseases (4 sources) Alkaline phosphatase raised; Translations: [Abnormal levels of other serum enzymes] Onset: 01-29-2023 01-29-2023 Episodic Other screening for suspected conditions (not mental disorders or infectious disease) (8 sources) Encounter for screening mammogram for malignant neoplasm of breast; Translations: [Full blood count abnormal] Onset: 07-23-2022 Episodic Other skin disorders (1 source) Rash and other nonspecific skin eruption Onset: 10-27-2021 Resolved: 10-27-2021 Episodic Other upper respiratory infections (4 sources) Sinusitis; Translations: [Chronic sinusitis, unspecified] Onset: 01-29-2023 Resolved: 01-30-2023 01-30-2023 Chronic Unclassified (1 source) COUGH, UNSPECIFIED; Translations: [COUGH, UNSPECIFIED] Onset: 01-03-2022 Unclassified (1 source) Contact with and (suspected) exposure to covid-19 Z20.822 Urinary tract infections (3 sources) Urinary tract infection, site not specified Onset: 08-14-2021 Resolved: 08-14-2021 Episodic Results Test Name Value Interpretation Reference Range Facility 29on 04-01-2024 29 Addended by: ESTER FREDERICK on: 04/01/2024 02:20 PM Modules accepted: Orders Normal [facility] Follow-Upon 04-01-2024 Follow-Up [id number] Tanika Grimm 1955 F Date Provider Department Center 04/01/2024 [id number] GAITAN None Family History Family Status - Relation Status Age at Mother Father Level of Service:20653 [place] OFFICE/OUTPATIENT ESTABLISHED MOD MDM 30 MIN Reason for Visit and Comments: Kidney Follow-up [[id number]] - Pt has no concerns at this time. Normal [facility] ALL CBC WITH AUTO DIFFon BASOPHILS ABSOLUTE AUTO 0 [facility] Basophils/100 WBC (Bld) 0.2 % 0.2 - 2.0 % [facility] Eosinophils/100 WBC (Bld) 2.2 % 0.9 - 7.0 % [facility] Erythrocyte distribution width (RBC) [Ratio] 14.8 % 11.0 - 15.0 % [facility] Hematocrit (Bld) [Volume fraction] 45.3 % 36.0 - 48.0 % [facility] Hemoglobin (Bld) [Mass/Vol] 14.4 g/dL 12.0 - 16.0 g/dL [facility] IMMATURE GRANULOCYTES ABS AUTO 0.02 [facility] Immature granulocytes/100 WBC (Bld) 0.2 % 0.0 - 0.5 % [facility] Interpretation and review of laboratory results Abnormal [facility] LYMPHOCYTES ABSOLUTE AUTO 1.5 [facility] Lymphocytes/100 WBC (Bld) 18.6 % Low 20.5 - 60.0 % [facility] MCH (RBC) [Entitic mass] 30.6 pg 26.7 - 34.0 pg [facility] MCHC (RBC) [Mass/Vol] 31.8 g/dL 29.9 - 35.2 g/dL [facility] MCV (RBC) [Entitic vol] 96.4 fL 81.0 - 99.0 fL [facility] MONOCYTES ABSOLUTE AUTO 0.8 [facility] Monocytes/100 WBC (Bld) 10 % 1.7 - 12.0 % [facility] NEUTROPHILS ABSOLUTE AUTO 5.5 [facility] Neutrophils/100 WBC (Bld) 68.8 % 43.0 - 75.0 % [facility] Platelet mean volume (Bld) [Entitic vol] 11.4 fL 9.5 - 13.5 fL [facility] TBH EO # 0.2 [facility] TB PLT 197 [facility] RBC 4.7 [facility] WBC 8.1 [facility] TACROLIMUS (FK506), BLOODon 02-17-2024 TACROLIMUS (FK506), BLOOD 4.5 ng/mL 2.0 - 20.0 ng/mL [facility] Comment on above: This test was develo ped and its performance characteristics determined by [facility]. It has not been cleared or approved by the Food and Drug Administration. Trough (immediately following transplant) 15.0 Trough (steady state, 2 weeks or more after transplant): 3.0 - 8.0 Performed by LC-MS/MS technology. Performed at: [address] [id number] Review Coordinator: Marizol Singleton MD, Phone: [phone] [facility] ALL CBC WITH AUTO DIFFon BASOPHILS ABSOLUTE AUTO 0 [facility] Basophils/100 WBC (Bld) 0.3 % 0.2 - 2.0 % [facility] Eosinophils/100 WBC (Bld) 2.1 % 0.9 - 7.0 % [facility] Erythrocyte distribution width (RBC) [Ratio] 14.7 % 11.0 - 15.0 % [facility] Hematocrit (Bld) [Volume fraction] 43.3 % 36.0 - 48.0 % [facility] Hemoglobin (Bld) [Mass/Vol] 14.2 g/dL 12.0 - 16.0 g/dL [facility] IMMATURE GRANULOCYTES ABS AUTO 0.03 [facility] Immature granulocytes/100 WBC (Bld) 0.4 % 0.0 - 0.5 % [facility] LYMPHOCYTES ABSOLUTE AUTO 1.4 [facility] Lymphocytes/100 WBC (Bld) 20.7 % 20.5 - 60.0 % [facility] MCH (RBC) [Entitic mass] 30.9 pg 26.7 - 34.0 pg [facility] MCHC (RBC) [Mass/Vol] 32.8 g/dL 29.9 - 35.2 g/dL [facility] MCV (RBC) [Entitic vol] 94.1 fL 81.0 - 99.0 fL [facility] MONOCYTES ABSOLUTE AUTO 0.7 [facility] Monocytes/100 WBC (Bld) 10.8 % 1.7 - 12.0 % [facility] NEUTROPHILS ABSOLUTE AUTO 4.4 [facility] Neutrophils/100 WBC (Bld) 65.7 % 43.0 - 75.0 % [facility] Platelet mean volume (Bld) [Entitic vol] 11.3 fL 9.5 - 13.5 fL [facility] EO # 0.1 [facility] PLT 193 [facility] RBC 4.6 [facility] WBC 6.7 [facility] ALL MAGNESIUMon 02-13-2024 Magnesium [Mass/Vol] 1.7 mg/dL Low 1.8 - 2 .4 mg/dL [facility] ALL PHOSPHOROUSon 02-13-2024 Phosphate [Mass/Vol] 3.4 mg/dL 2.6 - 4 .7 mg/dL [facility] ALL URIC ACIDon 02-13-2024 Urate [Mass/Vol] 4.7 mg/dL 2.6 - 6.0 mg/dL [facility] CMP (CMP) (FOR REMOTE FH C USE)on 02-13-2024 Albumin [Mass/Vol] 3.6 g/dL 3.4 - 5.0 g/dL [facility] ALBUMIN GLOBULIN RATIO 1.2 [facility] ALP [Catalytic activity/Vol] 131 U/L High 46 - 116 U/L [facility] ALT [Catalytic activity/Vol] 16 U/L 14 - 59 U/L [facility] Anion gap [Moles/Vol] 14 mmol/L [facility] AST [Catalytic activity/Vol] 13 U/L Low 15 - 37 U/L [facility] Bilirubin [Mass/Vol] 0.6 mg/dL 0.2 - 1 .0 mg/dL [facility] Calcium [Mass/Vol] 9.1 mg/dL 8.5 - 10. 1 mg/dL [facility] Chloride [Moles/Vol] 108 mmol/L High 98 - 10 7 mmol/L [facility] CO2 [Moles/Vol] 26.1 mmol/L 21.0 - 32.0 mmol/L [facility] Creatinine [Mass/Vol] 0.97 mg/dL 0.55 - 1.02 mg/dL [facility] GFR/1.73 sq M.predicted CKD-EPI (S/P/Bld) [Vol rate/Area] >60 >=60 mL/min/1.73m 2 [facility] Globulin (S) [Mass/Vol] 2.9 g/dL [facility] Glucose [Mass/Vol] 95 mg/dL 74 - 106 mg/dL [facility] Potassium [Moles/Vol] 4.1 mmol/L 3.5 - 5.1 mmol/L [facility] Protein [Mass/Vol] 6.5 g/dL 6.4 - 8.2 g/dL [facility] Sodium [Moles/Vol] 144 mmol/L 136 - 145 mmol/L [facility] TBH EGFR-NON AF MOZAMBICAN 57 Low >=60 mL/min/1.73m 2 [facility] Urea nitrogen [Mass/Vol] 16 mg/dL 7.0 - 18.0 mg/dL [facility] Urea nitrogen/Creatinine [Mass ratio] 16.5 mg/mg [facility] METRO BILIRUBIN, DIRECTon Bilirubin.indirect [Mass/Vol] 0.1 mg/dL 0.0 - 0.2 mg/dL [facility] No Panel Informationon 02-12 Interpretation and review of laboratory results Abnormal [facility] ALL CBC WITH AUTO DIFFon BASOPHILS ABSOLUTE AUTO 0 [facility] Basophils/100 WBC (Bld) 0.1 % Low 0.2 - 2.0 % [facility] Eosinophils/100 WBC (Bld) 2.5 % 0.9 - 7.0 % [facility] Erythrocyte distribution width (RBC) [Ratio] 14.6 % 11.0 - 15.0 % [facility] Hematocrit (Bld) [Volume fraction] 43.8 % 36.0 - 48.0 % [facility] Hemoglobin (Bld) [Mass/Vol] 14 g/dL 12.0 - 16.0 g/dL [facility] IMMATURE GRANULOCYTES ABS AUTO 0.02 [facility] Immature granulocytes/100 WBC (Bld) 0.3 % 0.0 - 0.5 % [facility] Interpretation and review of laboratory results Abnormal [facility] LYMPHOCYTES ABSOLUTE AUTO 1.4 [facility] Lymphocytes/100 WBC (Bld) 18.7 % Low 20.5 - 60.0 % [facility] MCH (RBC) [Entitic mass] 30.3 pg 26.7 - 34.0 pg [facility] MCHC (RBC) [Mass/Vol] 32 g/dL 29.9 - 35.2 g/dL [facility] MCV (RBC) [Entitic vol] 94.8 fL 81.0 - 99.0 fL [facility] MONOCYTES ABSOLUTE AUTO 0.8 [facility] Monocytes/100 WBC (Bld) 11.1 % 1.7 - 12.0 % [facility] NEUTROPHILS ABSOLUTE AUTO 4.9 [facility] Neutrophils/100 WBC (Bld) 67.3 % 43.0 - 75.0 % [facility] Platelet mean volume (Bld) [Entitic vol] 11.2 fL 9.5 - 13.5 fL [facility] TBH EO # 0.2 [facility] TBH PLT 219 [facility] ALL CBC WITH AUTO DIFFon BASOPHILS ABSOLUTE AUTO 0.0 [facility] Basophils/100 WBC (Bld) 0.3 % 0.2 - 2.0 % [facility] Eosinophils/100 WBC (Bld) 3.6 % 0.9 - 7.0 % [facility] Erythrocyte distribution width (RBC) [Ratio] 14.7 % 11.0 - 15.0 % [facility] Hematocrit (Bld) [Volume fraction] 46.0 % 36.0 - 48.0 % [facility] Hemoglobin (Bld) [Mass/Vol] 14.7 g/dL 12.0 - 16.0 g/dL [facility] IMMATURE GRANULOCYTES ABS AUTO 0.01 [facility] Immature granulocytes/100 WBC (Bld) 0.2 % 0.0 - 0.5 % [facility] LYMPHOCYTES ABSOLUTE AUTO 1.4 [facility] Lymphocytes/100 WBC (Bld) 22.4 % 20.5 - 60.0 % [facility] MCH (RBC) [Entitic mass] 30.1 pg 26.7 - 34.0 pg [facility] MCHC (RBC) [Mass/Vol] 32.0 g/dL 29.9 - 35.2 g/dL [facility] MCV (RBC) [Entitic vol] 94.3 fL 81.0 - 99.0 fL [facility] MONOCYTES ABSOLUTE AUTO 0.6 [facility] Monocytes/100 WBC (Bld) 9.6 % 1.7 - 12.0 % [facility] NEUTROPHILS ABSOLUTE AUTO 3.9 [facility] Neutrophils/100 WBC (Bld) 63.9 % 43.0 - 75.0 % [facility] Platelet mean volume (Bld) [Entitic vol] 11.6 fL 9.5 - 13.5 fL [facility] TBH EO # 0.2 [facility] TBH PLT 202 [facility] RBC 4.88 [facility] TB WBC 6.0 [facility] MLR HEMOGLOBIN A1Con 024 Glucose [Mass/Vol] 108 mg/dL [facility] HbA1c (Bld) [Mass fraction] 5.4 % 4.5 - 6.2 % [facility] Comment on above: ADA RECOMMENDED LIMI T 4.0 - 6.0 ADA THERAPEUTIC TARGET < 7.0 ACTION SUGGESTED > 7.0 [facility] Documentation [id number] Tanika Grimm 1955 F Date Provider Department [place] 12/09/2023 [id number], FERNANDA TXP None Family History Family Status - Relation Status Age at Mother Father Reason for Visit and Comments: Prior auth : Mycophenolate [Other] [facility] Documentationon 11-26-2023 Documentation [id number] Tanika Grimm 1955 Date Provider Department Center 11/26/2023 860-FERNANAD CAREY TXP None Family History Family Status - Relation Status Age at Mother Father Reason for Visit and Comments: Prior auth Tac 0.5mg [Other] [facility] Documentationon 10-27-2023 Documentation [id number] Tanika Grimm 1955 Date Provider Department Center 10/27/2023 750-HUBERT MIRANDAARA TXP None Family History Family Status - Relation Status Age at Mother Father [facility] 29on 09-23-2023 29 Addended by: DIANE LE on: 09/23/2023 03:27 PM Modules accepted: Orders [facility] Follow-Upon 09-23-2023 Follow-Up [id number] Tanika Grimm 1955 Provider Department Center 09/23/2023 124-VIRGIL HAYNES TXP None Family History Family Status - Relation Status Age at Mother Father Level of Service:26518 [place] OFFICE/OUTPATIENT ESTABLISHED MOD MDM 30 MIN Reason for Visit and Comments: Kidney Follow-up [] - Pt has been having sores in her mouth for the past month. [facility] No Panel InformationOrdered By: Lindsay Soria on 08-30-2023 Quick Strep (POC) [facility] Documentationon 08-26-2023 Documentation [id number] Tanika Grimm 1955 Date Provider Department Center 08/26/2023 750-RUTH, TYMARA TXP None No family history on file [facility] Documentationon 05-19-2023 Documentation [id number] Tanika Grimm 1955 Date Provider Department Center 05/19/2023 750-RUTH, TYMARA TXP None No family history on file [facility] COVID/FLU/RSV RT-PCRon 03-27 SARS-CoV-2 (COVID-19) RNA MURALI+probe Ql (Unsp spec) Negative [facility] [employer] Other COVID/FLU/RSV RT-PCR Negative [facility] [employer] Other Quick Strepon 03-27-2023 S. pyogenes Org specific cx Ql (Throat) Negative [employer] Other Quick Strep [employer] [facility] [employer] Other BILIRUBIN CONJUGATED (DIRECT )on 08-12-2022 BILI, CONJUGATED 0.1 mg/dL Normal 0.0-0.2 [facility] Comment on above: Performed By: #### D DAVIDSON, MG, PHOS, CMP, LIPID, URIC #### [facility] [address] [place] [address] Dr. Sarmad Patino GLYCOHEMOGLOBIN A1Con 2022 ADA RECOMMENDATION SEE BELOW Normal [facility] Comment on above: Result Comment: ADA RECOMMENDED LIMIT 4.0 - 6.0 ADA THERAPEUTIC TARGET < 7.0 ACTION SUGGESTED > 7.0 Performed By: #### D DAVIDSON, MG, PHOS, CMP, LIPID, URIC #### [facility] [address] [place] [address] Dr. Sarmad Patino Glucose [Mass/Vol] 108 mg/dL Normal [facility] Comment on above: Performed By: #### D DAVIDSON, MG, PHOS, CMP, LIPID, URIC #### [facility] [address] [address] [address] Sarmad Patino HbA1c (Bld) [Mass fraction] 5.4 % Normal 4.5-6.2 [facility] Comment on above: Performed By: #### D DAVIDSON, MG, PHOS, CMP, LIPID, URIC #### [facility] [address] [place] [address] Dr. Sarmad Patino MAGNESIUMon 08-12-2022 Magnesium [Mass/Vol] 1.7 mg/dL Critically low 1.8-2.4 [facility] Comment on above: Performed By: #### D DAVIDSON, MG, PHOS, CMP, LIPID, URIC #### [facility] [address] [address] [address] Sarmad Patino PHOSPHORUSon 08-12-2022 Phosphate [Mass/Vol] 3.9 mg/dL Normal 2.6-4.7 [facility] Comment on above: Performed By: #### U JUVE, LIPID, MG, CMP, DBIL, PHOS #### [facility] [facility] [place] [facility] [address] [address] [address] Sarmad Patino PROF 14(COMP METB)on 023 Albumin [Mass/Vol] 3.9 g/dL Normal 3.4-5.0 [facility] Comment on above: Performed By: #### D DAVIDSON, MG, PHOS, CMP, LIPID, URIC #### [facility] [place] [facility] [address] [place] [address] Dr. Sarmad Patino Albumin/Globulin [Mass ratio] 1.2 {ratio} Normal [facility] Comment on above: Performed By: #### D DAVIDSON, MG, PHOS, CMP, LIPID, URIC #### [facility] [place] [facility] [address] [place] [address] Dr. Sarmad Patino ALP [Catalytic activity/Vol] 126 U/L Critically high 46-116 [facility] Comment on above: Performed By: #### D DAVIDSON, MG, PHOS, CMP, LIPID, URIC #### [facility] [place] [facility] [address] [address] [address] Sarmad Patino ALT [Catalytic activity/Vol] 18 U/L Normal 14-59 [facility] Comment on above: Performed By: #### D DAVIDSON, MG, PHOS, CMP, LIPID, URIC #### [facility] [place] [facility] [address] [address] [address] Sarmad Patino Anion gap [Moles/Vol] 10.4 mmol/L Normal [facility] Comment on above: Performed By: #### D DAVIDSON, MG, PHOS, CMP, LIPID, URIC #### [facility] [place] [facility] [address] [address] [address] Sarmad Patino AST [Catalytic activity/Vol] 14 U/L Critically low 15-37 [facility] Comment on above: Performed By: #### D DAVIDSON, MG, PHOS, CMP, LIPID, URIC #### [facility] [place] [facility] [address] [address] [address] Sarmad Patino Bilirubin [Mass/Vol] 0.7 mg/dL Normal 0.2-1.0 [facility] Comment on above: Performed By: #### D DAVIDSON, MG, PHOS, CMP, LIPID, URIC #### [facility] [place] [facility] [address] [place] [address] Dr. Sarmad Patino Calcium [Mass/Vol] 9.8 mg/dL Normal 8.5-10.1 [facility] Comment on above: Performed By: #### D DAVIDSON, MG, PHOS, CMP, LIPID, URIC #### [facility] [place] [facility] [address] [place] [address] Dr. Sarmad Patino Chloride [Moles/Vol] 106 mmol/L Normal 98-107 [facility] [place] Comment on above: Performed By: #### D DAVIDSON, MG, PHOS, CMP, LIPID, URIC #### [facility] [place] [facility] [address] [place] [address] Dr. Sarmad Patino CO2 [Moles/Vol] 32.1 mmol/L Critically high 21.0-32.0 [facility] Comment on above: Performed By: #### D DAVIDSON, MG, PHOS, CMP, LIPID, URIC #### [facility] [place] [facility] [address] [place] [address] Dr. Sarmad Patino Creatinine [Mass/Vol] 0.92 mg/dL Normal 0.55-1.02 [facility] Comment on above: Performed By: #### D DAVIDSON, MG, PHOS, CMP, LIPID, URIC #### [facility] [place] [facility] [address] [place] [address] Dr. Sarmad Paitno EGFR-AF MOZAMBICAN >60 Normal >=60 [facility] Comment on above: Performed By: #### D DAVIDSON, MG, PHOS, CMP, LIPID, URIC #### [facility] [place] [facility] [address] [place] [address] Dr. Sarmad Patino EGFR-NON AF MOZAMBICAN >60 Normal >=60 [facility] [place] Comment on above: Performed By: #### D DAVIDSON, MG, PHOS, CMP, LIPID, URIC #### [facility] [place] [facility] [address] [place] [address] Dr. Sarmad Patino Globulin (S) [Mass/Vol] 3.3 g/dL Normal [facility] [place] Comment on above: Performed By: #### D DAVIDSON, MG, PHOS, CMP, LIPID, URIC #### [facility] [place] [facility] [address] [place] [address] Dr. Sarmad Patino Glucose [Mass/Vol] 102 mg/dL Normal 74-106 [facility] Comment on above: Performed By: #### D DAVIDSON, MG, PHOS, CMP, LIPID, URIC #### [facility] [place] [facility] [address] [place] [address] Dr. Sarmad Patino Potassium [Moles/Vol] 4.5 mmol/L Normal 3.5-5.1 [facility] Comment on above: Performed By: #### D DAVIDSON, MG, PHOS, CMP, LIPID, URIC #### [facility] [place] [facility] [address] [place] [address] Dr. Sarmad Patino Protein [Mass/Vol] 7.2 g/dL Normal 6.4-8.2 [facility] Comment on above: Performed By: #### D DAVIDSON, MG, PHOS, CMP, LIPID, URIC #### [facility] [place] [facility] [address] [place] [address] Dr. Sarmad Patino Sodium [Moles/Vol] 144 mmol/L Normal 136-145 [facility] Comment on above: Performed By: #### D DAVIDSON, MG, PHOS, CMP, LIPID, URIC #### [facility] [place] [facility] [address] [place] [address] Dr. Sarmad Patino Urea nitrogen [Mass/Vol] 20.0 mg/dL Critically high 7.0-18.0 [facility] [place] Comment on above: Performed By: #### D DAVIDSON, MG, PHOS, CMP, LIPID, URIC #### [facility] [place] [facility] [address] [place] [address] Dr. Sarmad Patino Urea nitrogen/Creatinine [Mass ratio] 21.7 mg/mg Normal [facility] [place] Comment on above: Performed By: #### D DAVIDSON, MG, PHOS, CMP, LIPID, URIC #### [facility] [place] [facility] [address] [place], [place] [address] Dr. Sarmad Patino URIC ACID SERUMon 08-12-2022 Urate [Mass/Vol] 5.2 mg/dL Normal 2.6-6.0 [facility] Comment on above: Performed By: #### D DAVIDSON, MG, PHOS, CMP, LIPID, URIC #### [facility] [place] [facility] [address] [place], [place] [address] Dr. Sarmad Patino MG MAMM SCREEN 3D DAVIDSON CADon 07-23-2022 MG MAMM SCREEN 3D DAVIDSON CAD Patient: TANIKA GRIMM Exam Date: 07/23/2022 : 1955 Gender:F Ordering : DR RAMON CARROLL M.D. Admission #: [id number] Family : Order #: [id number] CLICK HERE TO VIEW EXAM RADIOLOGY REPORT [...] Treatments None Family Cancers None LOCATION: [facility] [place] BREAST COMPOSITION: Extremely dense, which lowers the [...] M.D. on 07/23/2022 at 16:59 Normal [facility] [place] FK506 (TACROLIMUS) WHOLE BLO ODon 07-10-2022 Tacrolimus (FK506), Blood 3.8 ng/mL Normal 2.0-20.0 [facility] Comment on above: Result Comment: Trou gh (immediately following transplant) 15.0 . Trough (steady state, 2 weeks or more after transplant): 3.0 - 8.0 . Performed by LC-MS/MS technology. Performed By: #### D DAVIDSON, MG, PHOS, CMP, LIPID, URIC #### [facility] [place] [facility] [address] [address] [address] Sarmad Patino BILIRUBIN CONJUGATED (DIRECT )on 07-08-2022 BILI, CONJUGATED 0.1 mg/dL Normal 0.0-0.2 [facility] Comment on above: Performed By: #### U JUVE, LIPID, MG, CMP, DBIL, PHOS #### [facility] [place] [facility] [address] [place] [address] Dr. Sarmad Patino GLYCOHEMOGLOBIN A1Con 2022 ADA RECOMMENDATION SEE BELOW Normal [facility] Comment on above: Result Comment: ADA RECOMMENDED LIMIT 4.0 - 6.0 ADA THERAPEUTIC TARGET < 7.0 ACTION SUGGESTED > 7.0 Performed By: #### D DAVIDSON, MG, PHOS, CMP, LIPID, URIC #### [facility] [place] [facility] [address] [address] [address] Sarmad Patino Glucose [Mass/Vol] 105 mg/dL Normal [facility] Comment on above: Performed By: #### D DAVIDSON, MG, PHOS, CMP, LIPID, URIC #### [facility] [place] [facility] [address] [address] [address] Sarmad Patino HbA1c (Bld) [Mass fraction] 5.3 % Normal 4.5-6.2 [facility] Comment on above: Performed By: #### D DAVIDSON, MG, PHOS, CMP, LIPID, URIC #### [facility] [place] [facility] [address] [place] [address] Dr. Sarmad Patino MAGNESIUMon 07-08-2022 Magnesium [Mass/Vol] 1.8 mg/dL Normal 1.8-2.4 [facility] Comment on above: Performed By: #### U JUVE, LIPID, MG, CMP, DBIL, PHOS #### [facility] [place] [facility] [address] [place] [address] Dr. Sarmad Patino PHOSPHORUSon 07-08-2022 Phosphate [Mass/Vol] 3.8 mg/dL Normal 2.6-4.7 [facility] Comment on above: Performed By: #### U JUVE, LIPID, MG, CMP, DBIL, PHOS #### [facility] [place] [facility] [address] [place] [address] Dr. Sarmad Patino PROF 14(COMP METB)on 023 Albumin [Mass/Vol] 3.7 g/dL Normal 3.4-5.0 [facility] Comment on above: Performed By: #### U JUVE, LIPID, MG, CMP, DBIL, PHOS #### [facility] [place] [facility] [address] [place] [address] Dr. Sarmad Patino Albumin/Globulin [Mass ratio] 1.1 {ratio} Normal [facility] Comment on above: Performed By: #### U JUVE, LIPID, MG, CMP, DBIL, PHOS #### [facility] [place] [facility] [address] [place] [address] Dr. Sarmad Patino ALP [Catalytic activity/Vol] 124 U/L Critically high 46-116 [facility] Comment on above: Performed By: #### U JUVE, LIPID, MG, CMP, DBIL, PHOS #### [facility] [place] [facility] [address] [place] [address] Dr. Sarmad Patino ALT [Catalytic activity/Vol] 20 U/L Normal 14-59 [facility] Comment on above: Performed By: #### U JUVE, LIPID, MG, CMP, DBIL, PHOS #### [facility] [place] [facility] [address] [place] [address] Dr. Sarmad Patino Anion gap [Moles/Vol] 11.5 mmol/L Normal [facility] Comment on above: Performed By: #### U JUVE, LIPID, MG, CMP, DBIL, PHOS #### [facility] [place] [facility] [address] [place] [address] Dr. Sarmad Patino AST [Catalytic activity/Vol] 12 U/L Critically low 15-37 [facility] Comment on above: Performed By: #### U JUVE, LIPID, MG, CMP, DBIL, PHOS #### [facility] [place] [facility] [address] [place] [address] Dr. Sarmad Patino Bilirubin [Mass/Vol] 0.5 mg/dL Normal 0.2-1.0 [facility] Comment on above: Performed By: #### U JUVE, LIPID, MG, CMP, DBIL, PHOS #### [facility] [place] [facility] [address] [place] [address] Dr. Sarmad Patino Calcium [Mass/Vol] 9.6 mg/dL Normal 8.5-10.1 [facility] Comment on above: Performed By: #### U JUVE, LIPID, MG, CMP, DBIL, PHOS #### [facility] [place] [facility] [address] [place] [address] Dr. Sarmad Patino Chloride [Moles/Vol] 106 mmol/L Normal 98-107 [facility] [place] Comment on above: Performed By: #### U JUVE, LIPID, MG, CMP, DBIL, PHOS #### [facility] [place] [facility] [address] [place] [address] Dr. Sarmad Patino CO2 [Moles/Vol] 29.7 mmol/L Normal 21.0-32.0 [facility] Comment on above: Performed By: #### U JUVE, LIPID, MG, CMP, DBIL, PHOS #### [facility] [place] [facility] [address] [place] [address] Dr. Sarmad Patino Creatinine [Mass/Vol] 0.77 mg/dL Normal 0.55-1.02 [facility] Comment on above: Performed By: #### U JUVE, LIPID, MG, CMP, DBIL, PHOS #### [facility] [place] [facility] [address] [place] [address] Dr. Sarmad Patino EGFR-AF MOZAMBICAN >60 Normal >=60 [facility] Comment on above: Performed By: #### U JUVE, LIPID, MG, CMP, DBIL, PHOS #### [facility] [place] [facility] [address] [place] [address] Dr. Sarmad Patino EGFR-NON AF MOZAMBICAN >60 Normal >=60 [facility] Comment on above: Performed By: #### U JUVE, LIPID, MG, CMP, DBIL, PHOS #### [facility] [place] [facility] [address] [place] [address] Dr. Sarmad Patino Globulin (S) [Mass/Vol] 3.4 g/dL Normal [facility] Comment on above: Performed By: #### U JUVE, LIPID, MG, CMP, DBIL, PHOS #### [facility] [place] [facility] [address] [address] [address] Sarmad Patino Glucose [Mass/Vol] 97 mg/dL Normal 74-106 [facility] Comment on above: Performed By: #### U JUVE, LIPID, MG, CMP, DBIL, PHOS #### [facility] [place] [facility] [address] [place] [address] Dr. Sarmad Patino Potassium [Moles/Vol] 4.2 mmol/L Normal 3.5-5.1 [facility] Comment on above: Performed By: #### U JUVE, LIPID, MG, CMP, DBIL, PHOS #### [facility] [place] [facility] [address] [place] [address] Dr. Sarmad Patino Protein [Mass/Vol] 7.1 g/dL Normal 6.4-8.2 [facility] Comment on above: Performed By: #### U JUVE, LIPID, MG, CMP, DBIL, PHOS #### [facility] [place] [facility] [address] [place] [address] Dr. Sarmad Patino Sodium [Moles/Vol] 143 mmol/L Normal 136-145 [facility] Comment on above: Performed By: #### U JUVE, LIPID, MG, CMP, DBIL, PHOS #### [facility] [place] [facility] [address] [place] [address] Dr. Sarmad Patino Urea nitrogen [Mass/Vol] 26.0 mg/dL Critically high 7.0-18.0 [facility] Comment on above: Performed By: #### U JUVE, LIPID, MG, CMP, DBIL, PHOS #### [facility] [place] [facility] [address] [place] [address] Dr. Sarmad Patino Urea nitrogen/Creatinine [Mass ratio] 33.8 mg/mg Normal [facility] Comment on above: Performed By: #### U JUVE, LIPID, MG, CMP, DBIL, PHOS #### [facility] [place] [facility] [address] [place] [address] Dr. Sarmad Patino URIC ACID SERUMon 07-08-2022 Urate [Mass/Vol] 4.7 mg/dL Normal 2.6-6.0 [facility] Comment on above: Performed By: #### U JUVE, LIPID, MG, CMP, DBIL, PHOS #### [facility] [place] [facility] [address] [place] [address] Dr. Sarmad Patino FK506 (TACROLIMUS) WHOLE BLO ODon 06-13-2022 Tacrolimus (FK506), Blood 3.0 ng/mL Normal 2.0-20.0 [facility] Comment on above: Result Comment: Trou gh (immediately following transplant) 15.0 . Trough (steady state, 2 weeks or more after transplant): 3.0 - 8.0 . Performed by LC-MS/MS technology. Performed By: #### D DAVIDSON, MG, PHOS, CMP, LIPID, URIC #### [facility] [place] [facility] [address] [place] [address] Dr. Sarmad Patino BK VIRUS PCR QUANTon 023 BKV DNA QUANT PCR PLASMA Negative Normal Negative [facility] [place] Comment on above: Result Comment: No B K DNA detected. . The linear range of the assay is 22 - 100,000,000 IU/mL. Performed By: #### B KVIRUS #### [facility] [place] [facility] [address] [place] [address] Dr. Sarmad Patino Log10 BKV DNA Plasma Normal [facility] [place] Comment on above: Performed By: #### B KVIRUS #### [facility] [place] [facility] [address] [place] [address] Dr. Sarmad Patino BILIRUBIN CONJUGATED (DIRECT )on 06-10-2022 BILI, CONJUGATED 0.1 mg/dL Normal 0.0-0.2 [facility] Comment on above: Performed By: #### U JUVE, LIPID, MG, CMP, DBIL, PHOS #### [facility] [place] [facility] [address] [place] [address] Dr. Sarmad Patino GLYCOHEMOGLOBIN A1Con 2022 ADA RECOMMENDATION SEE BELOW Normal [facility] Comment on above: Result Comment: ADA RECOMMENDED LIMIT 4.0 - 6.0 ADA THERAPEUTIC TARGET < 7.0 ACTION SUGGESTED > 7.0 Performed By: #### D DAVIDSON, MG, PHOS, CMP, LIPID, URIC #### [facility] [place] [facility] [address] [address] [address] Sarmad Patino Glucose [Mass/Vol] 114 mg/dL Normal [facility] Comment on above: Performed By: #### D DAVIDSON, MG, PHOS, CMP, LIPID, URIC #### [facility] [place] [facility] [address] [place] [address] Dr. Sarmad Patino HbA1c (Bld) [Mass fraction] 5.6 % Normal 4.5-6.2 [facility] Comment on above: Performed By: #### D DAVIDSON, MG, PHOS, CMP, LIPID, URIC #### [facility] [place] [facility] [address] [place] [address] Dr. Sarmad Patino MAGNESIUMon 06-10-2022 Magnesium [Mass/Vol] 1.6 mg/dL Critically low 1.8-2.4 [facility] Comment on above: Performed By: #### U JUVE, LIPID, MG, CMP, DBIL, PHOS #### [facility] [place] [facility] [address] [place] [address] Dr. Sarmad Patino PROF 14(COMP METB)on 023 Albumin [Mass/Vol] 3.7 g/dL Normal 3.4-5.0 [facility] Comment on above: Performed By: #### U JUVE, LIPID, MG, CMP, DBIL, PHOS #### [facility] [place] [facility] [address] [place] [address] Dr. Sarmad Patino Albumin/Globulin [Mass ratio] 1.1 {ratio} Normal [facility] Comment on above: Performed By: #### U JUVE, LIPID, MG, CMP, DBIL, PHOS #### [facility] [place] [facility] [address] [place] [address] Dr. Sarmad Patino ALP [Catalytic activity/Vol] 142 U/L Critically high 46-116 [facility] Comment on above: Performed By: #### U JUVE, LIPID, MG, CMP, DBIL, PHOS #### [facility] [place] [facility] [address] [address] [address] Sarmad Patino ALT [Catalytic activity/Vol] 29 U/L Normal 14-59 [facility] Comment on above: Performed By: #### U JUVE, LIPID, MG, CMP, DBIL, PHOS #### [facility] [place] [facility] [address] [place] [address] Dr. Sarmad Patino Anion gap [Moles/Vol] 11.1 mmol/L Normal [facility] Comment on above: Performed By: #### U JUVE, LIPID, MG, CMP, DBIL, PHOS #### [facility] [place] [facility] [address] [place] [address] Dr. Sarmad Patino AST [Catalytic activity/Vol] 19 U/L Normal 15-37 [facility] Comment on above: Performed By: #### U JUVE, LIPID, MG, CMP, DBIL, PHOS #### [facility] [place] [facility] [address] [place] [address] Dr. Sarmad Patino Bilirubin [Mass/Vol] 0.6 mg/dL Normal 0.2-1.0 [facility] Comment on above: Performed By: #### U JUVE, LIPID, MG, CMP, DBIL, PHOS #### [facility] [place] [facility] [address] [address] [address] Sarmad Patino Calcium [Mass/Vol] 9.8 mg/dL Normal 8.5-10.1 [facility] Comment on above: Performed By: #### U JUVE, LIPID, MG, CMP, DBIL, PHOS #### [facility] [place] [facility] [address] [place] [address] Dr. Sarmad Patino Chloride [Moles/Vol] 103 mmol/L Normal 98-107 [facility] Comment on above: Performed By: #### U JUVE, LIPID, MG, CMP, DBIL, PHOS #### [facility] [place] [facility] [address] [place] [address] Dr. Sarmad Patino CO2 [Moles/Vol] 30.7 mmol/L Normal 21.0-32.0 [facility] Comment on above: Performed By: #### U JUVE, LIPID, MG, CMP, DBIL, PHOS #### [facility] [place] [facility] [address] [address] [address] Sarmad Patino Creatinine [Mass/Vol] 0.79 mg/dL Normal 0.55-1.02 [facility] Comment on above: Performed By: #### U JUVE, LIPID, MG, CMP, DBIL, PHOS #### [facility] [place] [facility] [address] [address] [address] Sarmad Patino EGFR-AF MOZAMBICAN >60 Normal >=60 [facility] Comment on above: Performed By: #### U JUVE, LIPID, MG, CMP, DBIL, PHOS #### [facility] [place] [facility] [address] [place] [address] Dr. Sarmad Patino EGFR-NON AF MOZAMBICAN >60 Normal >=60 [facility] Comment on above: Performed By: #### U JUVE, LIPID, MG, CMP, DBIL, PHOS #### [facility] [place] [facility] [address] [address] [address] Sarmad Patino Globulin (S) [Mass/Vol] 3.4 g/dL Normal [facility] Comment on above: Performed By: #### U JUVE, LIPID, MG, CMP, DBIL, PHOS #### [facility] [place] [facility] [address] [address] [address] Sarmad Patino Glucose [Mass/Vol] 94 mg/dL Normal 74-106 [facility] Comment on above: Performed By: #### U JUVE, LIPID, MG, CMP, DBIL, PHOS #### [facility] [place] [facility] [address] [address] [address] Sarmad Patino Potassium [Moles/Vol] 3.8 mmol/L Normal 3.5-5.1 [facility] Comment on above: Performed By: #### U JUVE, LIPID, MG, CMP, DBIL, PHOS #### [facility] [place] [facility] [address] [place] [address] Dr. Sarmad Patino Protein [Mass/Vol] 7.1 g/dL Normal 6.4-8.2 [facility] Comment on above: Performed By: #### U JUVE, LIPID, MG, CMP, DBIL, PHOS #### [facility] [place] [facility] [address] [place] [address] Dr. Sarmad Patino Sodium [Moles/Vol] 141 mmol/L Normal 136-145 [facility] Comment on above: Performed By: #### U JUVE, LIPID, MG, CMP, DBIL, PHOS #### [facility] [place] [facility] [address] [address] [address] Sarmad Patino Urea nitrogen [Mass/Vol] 17.0 mg/dL Normal 7.0-18.0 [facility] Comment on above: Performed By: #### U JUVE, LIPID, MG, CMP, DBIL, PHOS #### [facility] [place] [facility] [address] [place] [address] Dr. Sarmad Patino Urea nitrogen/Creatinine [Mass ratio] 21.5 mg/mg Normal [facility] Comment on above: Performed By: #### U JUVE, LIPID, MG, CMP, DBIL, PHOS #### [facility] [place] [facility] [address] [place] [address] Dr. Sarmad Patino URIC ACID SERUMon 06-10-2022 Urate [Mass/Vol] 5.1 mg/dL Normal 2.6-6.0 [facility] Comment on above: Performed By: #### U JUVE, LIPID, MG, CMP, DBIL, PHOS #### [facility] [place] [facility] [address] [place] [address] Dr. Sarmad Patino BK VIRUS PCR QUANTon 023 BKV DNA QUANT PCR PLASMA Negative Normal Negative [facility] Comment on above: Result Comment: No B K DNA detected. . The linear range of the assay is 22 - 100,000,000 IU/mL. Performed By: #### U JUVE, LIPID, MG, CMP, DBIL, PHOS #### [facility] [place] [facility] [address] [place] [address] Dr. Sarmad Patino Log10 BKV DNA Plasma Normal [facility] Comment on above: Performed By: #### U JUVE, LIPID, MG, CMP, DBIL, PHOS #### [facility] [place] [facility] [address] [address] [address] Sarmad Patino FK506 (TACROLIMUS) WHOLE BLO ODon 05-13-2022 Tacrolimus (FK506), Blood 4.1 ng/mL Normal 2.0-20.0 [facility] Comment on above: Result Comment: Trou gh (immediately following transplant) 15.0 . Trough (steady state, 2 weeks or more after transplant): 3.0 - 8.0 . Performed by LC-MS/MS technology. Performed By: #### U JUVE, LIPID, MG, CMP, DBIL, PHOS #### [facility] [place] [facility] [address] [place] [address] Dr. Sarmad Patino BILIRUBIN CONJUGATED (DIRECT )on 05-10-2022 BILI, CONJUGATED 0.1 mg/dL Normal 0.0-0.2 [facility] Comment on above: Performed By: #### D DAVIDSON, MG, PHOS, CMP, LIPID, URIC #### [facility] [place] [facility] [address] [place] [address] Dr. Sarmad Patino GLYCOHEMOGLOBIN A1Con 2022 ADA RECOMMENDATION SEE BELOW Normal [facility] Comment on above: Result Comment: ADA RECOMMENDED LIMIT 4.0 - 6.0 ADA THERAPEUTIC TARGET < 7.0 ACTION SUGGESTED > 7.0 Performed By: #### D DAVIDSON, MG, PHOS, CMP, LIPID, URIC #### [facility] [address] [address] [address] Sarmad Patino Glucose [Mass/Vol] 108 mg/dL Normal [facility] Comment on above: Performed By: #### D DAVIDSON, MG, PHOS, CMP, LIPID, URIC #### [facility] [address] [address] [address] Sarmad Patino HbA1c (Bld) [Mass fraction] 5.4 % Normal 4.5-6.2 [facility] Comment on above: Performed By: #### D DAVIDSON, MG, PHOS, CMP, LIPID, URIC #### [facility] [address] [place] [address] Dr. Sarmad Patino MAGNESIUMon 05-10-2022 Magnesium [Mass/Vol] 1.9 mg/dL Normal 1.8-2.4 [facility] Comment on above: Performed By: #### U JUVE, LIPID, MG, CMP, DBIL, PHOS #### [facility] [address] [place] [address] Dr. Sarmad Patino PROF 14(COMP METB)on 023 Albumin [Mass/Vol] 3.9 g/dL Normal 3.4-5.0 [facility] Comment on above: Performed By: #### D DAVIDSON, MG, PHOS, CMP, LIPID, URIC #### [facility] [address] [place] [address] Dr. Sarmad Patino Albumin/Globulin [Mass ratio] 1.2 {ratio} Normal [facility] Comment on above: Performed By: #### D DAVIDSON, MG, PHOS, CMP, LIPID, URIC #### [facility] [address] [place] [address] Dr. Sarmad Patino ALP [Catalytic activity/Vol] 114 U/L Normal 46-116 [facility] Comment on above: Performed By: #### D DAVIDSON, MG, PHOS, CMP, LIPID, URIC #### [facility] [address] [place] [address] Dr. Sarmad Patino ALT [Catalytic activity/Vol] 18 U/L Normal 14-59 [facility] Comment on above: Performed By: #### D DAVIDSON, MG, PHOS, CMP, LIPID, URIC #### [facility] [address] [place] [address] Dr. Sarmad Patino Anion gap [Moles/Vol] 15.9 mmol/L Normal [facility] Comment on above: Performed By: #### D DAVIDSON, MG, PHOS, CMP, LIPID, URIC #### [facility] [address] [place] [address] Dr. Sarmad Patino AST [Catalytic activity/Vol] 17 U/L Normal 15-37 [facility] Comment on above: Performed By: #### D DAVIDSON, MG, PHOS, CMP, LIPID, URIC #### [facility] [address] [address] [address] Sarmad Patino Bilirubin [Mass/Vol] 0.4 mg/dL Normal 0.2-1.0 [facility] Comment on above: Performed By: #### D DAVIDSON, MG, PHOS, CMP, LIPID, URIC #### [facility] [address] [address] [address] Sarmad Patino Calcium [Mass/Vol] 9.8 mg/dL Normal 8.5-10.1 [facility] Comment on above: Performed By: #### D DAVIDSON, MG, PHOS, CMP, LIPID, URIC #### [facility] [address] [address] [address] Sarmad Patino Chloride [Moles/Vol] 103 mmol/L Normal 98-107 [facility] Comment on above: Performed By: #### D DAVIDSON, MG, PHOS, CMP, LIPID, URIC #### [facility] [address] [place] [address] Dr. Sarmad Patino CO2 [Moles/Vol] 29.2 mmol/L Normal 21.0-32.0 [facility] Comment on above: Performed By: #### D DAVIDSON, MG, PHOS, CMP, LIPID, URIC #### [facility] [address] [place] [address] Dr. Sarmad Patino Creatinine [Mass/Vol] 0.74 mg/dL Normal 0.55-1.02 [facility] Comment on above: Performed By: #### D DAVIDSON, MG, PHOS, CMP, LIPID, URIC #### [facility] [address] [place] [address] Dr. Sarmad Patino EGFR-AF MOZAMBICAN >60 Normal >=60 [facility] Comment on above: Performed By: #### D DAVIDSON, MG, PHOS, CMP, LIPID, URIC #### [facility] [address] [place] [address] Dr. Sarmad Patino EGFR-NON AF MOZAMBICAN >60 Normal >=60 [facility] Comment on above: Performed By: #### D DAVIDSON, MG, PHOS, CMP, LIPID, URIC #### [facility] [address] [place] [address] Dr. Sarmad Patino Globulin (S) [Mass/Vol] 3.2 g/dL Normal [facility] Comment on above: Performed By: #### D DAVIDSON, MG, PHOS, CMP, LIPID, URIC #### [facility] [address] [place] [address] Dr. Sarmad Patino Glucose [Mass/Vol] 94 mg/dL Normal 74-106 [facility] Comment on above: Performed By: #### D DAVIDSON, MG, PHOS, CMP, LIPID, URIC #### [facility] [address] [place] [address] Dr. Sarmad Patino Potassium [Moles/Vol] 4.1 mmol/L Normal 3.5-5.1 [facility] Comment on above: Performed By: #### D DAVIDSON, MG, PHOS, CMP, LIPID, URIC #### [facility] [address] [place] [address] Dr. Sarmad Patino Protein [Mass/Vol] 7.1 g/dL Normal 6.4-8.2 [facility] Comment on above: Performed By: #### D DAVIDSON, MG, PHOS, CMP, LIPID, URIC #### [facility] [address] [place] [address] Dr. Sarmad Patino Sodium [Moles/Vol] 144 mmol/L Normal 136-145 [facility] Comment on above: Performed By: #### D DAVIDSON, MG, PHOS, CMP, LIPID, URIC #### [facility] [address] [place] [address] Dr. Sarmad Patino Urea nitrogen [Mass/Vol] 18.0 mg/dL Normal 7.0-18.0 [facility] Comment on above: Performed By: #### D DAVIDSON, MG, PHOS, CMP, LIPID, URIC #### [facility] [address] [place] [address] Dr. Sarmad Patino Urea nitrogen/Creatinine [Mass ratio] 24.3 mg/mg Normal [facility] Comment on above: Performed By: #### D DAVIDSON, MG, PHOS, CMP, LIPID, URIC #### [facility] [address] [address] [address] Sarmad Patino URIC ACID SERUMon 05-10-2022 Urate [Mass/Vol] 5.1 mg/dL Normal 2.6-6.0 [facility] Comment on above: Performed By: #### U JUVE, LIPID, MG, CMP, DBIL, PHOS #### [facility] [address] [address] [address] Sarmad Patino MYCOPHENOLIC ACIDon 04-17-19 Mycophenolic Acid 1.2 ug/mL Normal 1.0-3.5 [facility] Comment on above: Performed By: #### D DAVIDSON, MG, PHOS, CMP, LIPID, URIC #### [facility] [address] [address] [address] Sarmad Patino Mycophenolic Acid Glucuronide 37 ug/mL Normal 15-125 [facility] Comment on above: Result Comment: [facility] 's Reference Range: 35-100 mcg/mL. Performed By: #### D DAVIDSON, MG, PHOS, CMP, LIPID, URIC #### [facility] [address] [address] [address] Sarmad Patino FK506 (TACROLIMUS) WHOLE BLO ODon 04-10-2022 Tacrolimus (FK506), Blood 4.2 ng/mL Normal 2.0-20.0 [facility] Comment on above: Result Comment: Trou gh (immediately following transplant) 15.0 . Trough (steady state, 2 weeks or more after transplant): 3.0 - 8.0 . Performed by LC-MS/MS technology. Performed By: #### D DAVIDSON, MG, PHOS, CMP, LIPID, URIC #### [facility] [address] [address] [address] Sarmad Patino BILIRUBIN CONJUGATED (DIRECT )on 04-08-2022 BILI, CONJUGATED 0.1 mg/dL Normal 0.0-0.2 [facility] Comment on above: Performed By: #### U JUVE, LIPID, MG, CMP, DBIL, PHOS #### [facility] [address] [address] [address] Sarmad Patino CBC AUTO DIFFon 04-08-2022 BASO # 0.0 103/ul Normal 0.0-0.1 [facility] Comment on above: Performed By: #### D DAVIDSON, MG, PHOS, CMP, LIPID, URIC #### [facility] [address] [place] [address] Dr. Sarmad Patino Basophils/100 WBC (Bld) 0.3 % Normal 0.2-2.0 [facility] Comment on above: Performed By: #### D DAVIDSON, MG, PHOS, CMP, LIPID, URIC #### [facility] [address] [place] [address] Dr. Sarmad Patino EO # 0.1 103/ul Normal 0.0-0.7 [facility] Comment on above: Performed By: #### D DAVIDSON, MG, PHOS, CMP, LIPID, URIC #### [facility] [address] [place] [address] Dr. Sarmad Patino Eosinophils/100 WBC (Bld) 1.4 % Normal 0.9-7.0 [facility] Comment on above: Performed By: #### D DAVIDSON, MG, PHOS, CMP, LIPID, URIC #### [facility] [address] [place] [address] Dr. Sarmad Patino Erythrocyte distribution width (RBC) [Ratio] 15.8 % Critically high 11.0-15.0 [facility] Comment on above: Performed By: #### D DAVIDSON, MG, PHOS, CMP, LIPID, URIC #### [facility] [address] [place] [address] Dr. Sarmad Patino Hematocrit (Bld) [Volume fraction] 43.0 % Normal 36.0-48.0 [facility] Comment on above: Performed By: #### D DAVIDSON, MG, PHOS, CMP, LIPID, URIC #### [facility] [address] [place] [address] Dr. Sarmad Patino Hemoglobin (Bld) [Mass/Vol] 15.0 g/dL Normal 12.0-16.0 [facility] Comment on above: Performed By: #### D DAVIDSON, MG, PHOS, CMP, LIPID, URIC #### [facility] [address] [place] [address] Dr. Sarmad Patino IG # 0.01 10e3/ul Normal 0.00-0.03 [facility] Comment on above: Performed By: #### D DAVIDSON, MG, PHOS, CMP, LIPID, URIC #### [facility] [address] [place] [address] Dr. Sarmad Patino IG % 0.1 % Normal 0.0-0.5 [facility] Comment on above: Performed By: #### D DAVIDSON, MG, PHOS, CMP, LIPID, URIC #### [facility] [address] [place] [address] Dr. Sarmad Patino LYMPH # 1.3 103/ul Normal 1.2-3.8 [facility] Comment on above: Performed By: #### D DAVIDSON, MG, PHOS, CMP, LIPID, URIC #### [facility] [address] [place] [address] Dr. Sarmad Patino Lymphocytes/100 WBC (Bld) 18.3 % Critically low 20.5-60.0 [facility] Comment on above: Performed By: #### D DAVIDSON, MG, PHOS, CMP, LIPID, URIC #### [facility] [address] [place] [address] Dr. Sarmad Patino MANUAL DIFF REQ NO Normal [facility] Comment on above: Performed By: #### D DAVIDSON, MG, PHOS, CMP, LIPID, URIC #### [facility] [address] [place] [address] Dr. Sarmad Patino MCH (RBC) [Entitic mass] 29.7 pg Normal 26.7-34.0 [facility] Comment on above: Performed By: #### D DAVIDSON, MG, PHOS, CMP, LIPID, URIC #### [facility] [address] [place] [address] Dr. Sarmad Patino MCHC (RBC) [Mass/Vol] 34.9 g/dL Normal 29.9-35.2 [facility] Comment on above: Performed By: #### D DAVIDSON, MG, PHOS, CMP, LIPID, URIC #### [facility] [address] [place] [address] Dr. Sarmad Patino MCV (RBC) [Entitic vol] 85.1 fL Normal 81.0-99.0 [facility] Comment on above: Performed By: #### D DAVIDSON, MG, PHOS, CMP, LIPID, URIC #### [facility] [address] [place] [address] Dr. Sarmad Patino MONO # 0.7 103/ul Normal 0.3-0.8 [facility] Comment on above: Performed By: #### D DAVIDSON, MG, PHOS, CMP, LIPID, URIC #### [facility] [address] [place] [address] Dr. Sarmad Patino Monocytes/100 WBC (Bld) 9.8 % Normal 1.7-12.0 [facility] Comment on above: Performed By: #### D DAVIDSON, MG, PHOS, CMP, LIPID, URIC #### [facility] [address] [place] [address] Dr. Sarmad Patino NEUT # 5.1 103/ul Normal 1.4-6.5 [facility] Comment on above: Performed By: #### D DAVIDSON, MG, PHOS, CMP, LIPID, URIC #### [facility] [address] [place] [address] Dr. Sarmad Patino Neutrophils/100 WBC (Bld) 70.1 % Normal 43.0-75.0 [facility] Comment on above: Performed By: #### D DAVIDSON, MG, PHOS, CMP, LIPID, URIC #### [facility] [address] [place] [address] Dr. Sarmad Patino Platelet mean volume (Bld) [Entitic vol] 10.4 fL Normal 9.5-13.5 [facility] Comment on above: Performed By: #### D DAVIDSON, MG, PHOS, CMP, LIPID, URIC #### [facility] [address] [place] [address] Dr. Sarmad aPtino PLT 229 103/ul Normal 150-450 [facility] Comment on above: Performed By: #### D DAVIDSON, MG, PHOS, CMP, LIPID, URIC #### [facility] [address] [address] [address] Sarmad Patino RBC 5.05 106/ul Normal 4.20-5.40 [facility] Comment on above: Performed By: #### D DAVIDSON, MG, PHOS, CMP, LIPID, URIC #### [facility] [address] [address] [address] Sarmad Patino WBC 7.2 103/ul Normal 4.0-11.0 [facility] Comment on above: Performed By: #### D DAVIDSON, MG, PHOS, CMP, LIPID, URIC #### [facility] [address] [address] [address] Sarmad Patino LIPID PROFILEon 04-08-2022 CHOL-HDL RATIO NORM SEE BELOW Normal [facility] Comment on above: Result Comment: 3.3 - 4.4 LOW RISK 4.4 - 7.1 AVERAGE RISK 7.1 - 11.0 MODERATE RISK >11.0 HIGH RISK Performed By: #### U JUVE, LIPID, MG, CMP, DBIL, PHOS #### [facility] [address] [address] [address] Sarmad Patino Cholesterol [Mass/Vol] 134 mg/dL Normal <=200 [facility] Comment on above: Performed By: #### U JUVE, LIPID, MG, CMP, DBIL, PHOS #### [facility] [address] [address] [address] Sarmad Patino Cholesterol in HDL [Mass/Vol] 55 mg/dL Normal 40-60 [facility] Comment on above: Performed By: #### U JUVE, LIPID, MG, CMP, DBIL, PHOS #### [facility] [address] [address] [address] Sarmad Patino Cholesterol in LDL [Mass/Vol] 56.6 mg/dL Normal [facility] Comment on above: Performed By: #### U JUVE, LIPID, MG, CMP, DBIL, PHOS #### [facility] [address] [address] [address] Sarmad Patino Cholesterol.total/Cho lesterol in HDL [Mass ratio] 2.4 {ratio} Normal [facility] Comment on above: Performed By: #### U JUVE, LIPID, MG, CMP, DBIL, PHOS #### [facility] [address] [address] [address] Sarmad Patino HDL NORMAL > or = 60 mg/dl - LO W CARDIOVASCULAR RISK <40 mg/dl - HIGH CARDIOVASCULAR RISK Normal [facility] Comment on above: Performed By: #### U JUVE, LIPID, MG, CMP, DBIL, PHOS #### [facility] [address] [address] [address] Sarmad Patino LDL CALC NORMAL SEE BELOW Normal [facility] Comment on above: Result Comment: <100 mg/dl OPTIMAL 100 - 129 mg/dl NEAR OR ABOVE OPTIMAL 130 - 159 mg/dl BORDERLINE HIGH 160 - 189 mg/dl HIGH >190 mg/dl VERY HIGH Performed By: #### U JUVE, LIPID, MG, CMP, DBIL, PHOS #### [facility] [address] [address] [address] Sarmad Patino Triglyceride [Mass/Vol] 112 mg/dL Normal <=150 [facility] Comment on above: Performed By: #### U JUVE, LIPID, MG, CMP, DBIL, PHOS #### [facility] [address] [place] [address] Dr. Sarmad Patino VLDL CALC 22.4 mg/dL Normal [facility] Comment on above: Performed By: #### U JUVE, LIPID, MG, CMP, DBIL, PHOS #### [facility] [address] [place] [address] Dr. Sarmad Patino MAGNESIUMon 04-08-2022 Magnesium [Mass/Vol] 1.8 mg/dL Normal 1.8-2.4 [facility] Comment on above: Performed By: #### U JUVE, LIPID, MG, CMP, DBIL, PHOS #### [facility] [address] [place] [address] Dr. Sarmad Patino PHOSPHORUSon 04-08-2022 Phosphate [Mass/Vol] 3.9 mg/dL Normal 2.6-4.7 [facility] Comment on above: Performed By: #### U JUVE, LIPID, MG, CMP, DBIL, PHOS #### [facility] [address] [place] [address] Dr. Sarmad Patino PROF 14(COMP METB)on 023 Albumin [Mass/Vol] 4.0 g/dL Normal 3.4-5.0 [facility] Comment on above: Performed By: #### U JUVE, LIPID, MG, CMP, DBIL, PHOS #### [facility] [address] [place] [address] Dr. Sarmad Patino Albumin/Globulin [Mass ratio] 1.3 {ratio} Normal [facility] Comment on above: Performed By: #### U JUVE, LIPID, MG, CMP, DBIL, PHOS #### [facility] [address] [place] [address] Dr. Sarmad Patino ALP [Catalytic activity/Vol] 108 U/L Normal 46-116 [facility] Comment on above: Performed By: #### U JUVE, LIPID, MG, CMP, DBIL, PHOS #### [facility] [address] [place] [address] Dr. Sarmad Patino ALT [Catalytic activity/Vol] 15 U/L Normal 14-59 [facility] Comment on above: Performed By: #### U JUVE, LIPID, MG, CMP, DBIL, PHOS #### [facility] [address] [place] [address] Dr. Sarmad Patino Anion gap [Moles/Vol] 14.3 mmol/L Normal [facility] Comment on above: Performed By: #### U JUVE, LIPID, MG, CMP, DBIL, PHOS #### [facility] [address] [place] [address] Dr. Sarmad Patino AST [Catalytic activity/Vol] 15 U/L Normal 15-37 [facility] Comment on above: Performed By: #### U JUVE, LIPID, MG, CMP, DBIL, PHOS #### [facility] [address] [place] [address] Dr. Sarmad Patino Bilirubin [Mass/Vol] 0.5 mg/dL Normal 0.2-1.0 [facility] Comment on above: Performed By: #### U JUVE, LIPID, MG, CMP, DBIL, PHOS #### [facility] [address] [address] [address] Sarmad Patino Calcium [Mass/Vol] 9.7 mg/dL Normal 8.5-10.1 [facility] Comment on above: Performed By: #### U JUVE, LIPID, MG, CMP, DBIL, PHOS #### [facility] [address] [address] [address] Sarmad Patino Chloride [Moles/Vol] 105 mmol/L Normal 98-107 [facility] Comment on above: Performed By: #### U JUVE, LIPID, MG, CMP, DBIL, PHOS #### [facility] [address] [place] [address] Dr. Sarmad Patino CO2 [Moles/Vol] 26.6 mmol/L Normal 21.0-32.0 [facility] Comment on above: Performed By: #### U JUVE, LIPID, MG, CMP, DBIL, PHOS #### [facility] [address] [place] [address] Dr. Sarmad Patino Creatinine [Mass/Vol] 0.80 mg/dL Normal 0.55-1.02 [facility] Comment on above: Performed By: #### U JUVE, LIPID, MG, CMP, DBIL, PHOS #### [facility] [address] [place] [address] Dr. Sarmad Patino EGFR-AF MOZAMBICAN >60 Normal >=60 [facility] Comment on above: Performed By: #### U JUVE, LIPID, MG, CMP, DBIL, PHOS #### [facility] [address] [place] [address] Dr. Sarmad Patino EGFR-NON AF MOZAMBICAN >60 Normal >=60 [facility] Comment on above: Performed By: #### U JUVE, LIPID, MG, CMP, DBIL, PHOS #### [facility] [address] [place] [address] Dr. Sarmad Patino Globulin (S) [Mass/Vol] 3.0 g/dL Normal [facility] Comment on above: Performed By: #### U JUVE, LIPID, MG, CMP, DBIL, PHOS #### [facility] [address] [address] [address] Sarmad Patino Glucose [Mass/Vol] 99 mg/dL Normal 74-106 [facility] Comment on above: Performed By: #### U JUVE, LIPID, MG, CMP, DBIL, PHOS #### [facility] [address] [address] [address] Sarmad Patino Potassium [Moles/Vol] 3.9 mmol/L Normal 3.5-5.1 [facility] Comment on above: Performed By: #### U JUVE, LIPID, MG, CMP, DBIL, PHOS #### [facility] [address] [place] [address] Dr. Sarmad Patino Protein [Mass/Vol] 7.0 g/dL Normal 6.4-8.2 [facility] Comment on above: Performed By: #### U JUVE, LIPID, MG, CMP, DBIL, PHOS #### [facility] [address] [place] [address] Dr. Sarmad Patino Sodium [Moles/Vol] 142 mmol/L Normal 136-145 [facility] Comment on above: Performed By: #### U JUVE, LIPID, MG, CMP, DBIL, PHOS #### [facility] [address] [place] [address] Dr. Sarmad Patino Urea nitrogen [Mass/Vol] 14.0 mg/dL Normal 7.0-18.0 [facility] Comment on above: Performed By: #### U JUVE, LIPID, MG, CMP, DBIL, PHOS #### [facility] [address] [address] [address] Sarmad Patino Urea nitrogen/Creatinine [Mass ratio] 17.5 mg/mg Normal [facility] Comment on above: Performed By: #### U JUVE, LIPID, MG, CMP, DBIL, PHOS #### [facility] [address] [place] [address] Dr. Sarmad Patino URIC ACID SERUMon 04-08-2022 Urate [Mass/Vol] 5.2 mg/dL Normal 2.6-6.0 [facility] Comment on above: Performed By: #### U JUVE, LIPID, MG, CMP, DBIL, PHOS #### [facility] [address] [address] [address] Sarmad Patino BK VIRUS PCR QUANTon 022 BKV DNA QUANT PCR PLASMA Negative Normal Negative [facility] Comment on above: Result Comment: No B K DNA detected. . The linear range of the assay is 22 - 100,000,000 IU/mL. Performed By: #### D DAVIDSON, MG, PHOS, CMP, LIPID, URIC #### [facility] [address] [address] [address] Sarmad Patino Log10 BKV DNA Plasma Normal [facility] Comment on above: Performed By: #### D DAVIDSON, MG, PHOS, CMP, LIPID, URIC #### [facility] [address] [address] [address] Sarmad Patino FK506 (TACROLIMUS) WHOLE BLO ODon 03-13-2022 Tacrolimus (FK506), Blood 5.0 ng/mL Normal 2.0-20.0 [facility] Comment on above: Result Comment: Trou gh (immediately following transplant) 15.0 . Trough (steady state, 2 weeks or more after transplant): 3.0 - 8.0 . Performed by LC-MS/MS technology. Performed By: #### D DAVIDSON, MG, PHOS, CMP, LIPID, URIC #### [facility] [address] [address] [address] Sarmad Patino GLYCOHEMOGLOBIN A1Con 2021 ADA RECOMMENDATION SEE BELOW Normal [facility] Comment on above: Result Comment: ADA RECOMMENDED LIMIT 4.0 - 6.0 ADA THERAPEUTIC TARGET < 7.0 ACTION SUGGESTED > 7.0 Performed By: #### D DAVIDSON, MG, PHOS, CMP, LIPID, URIC #### [facility] [address] [address] [address] Sarmad Patino Glucose [Mass/Vol] 111 mg/dL Normal [facility] Comment on above: Performed By: #### D DAVIDSON, MG, PHOS, CMP, LIPID, URIC #### [facility] [address] [address] [address] Sarmad Patino HbA1c (Bld) [Mass fraction] 5.5 % Normal 4.5-6.2 [facility] Comment on above: Performed By: #### D DAVIDSON, MG, PHOS, CMP, LIPID, URIC #### [facility] [address] [address] [address] Sarmad Patino LIVER PROFILEon 03-11-2022 Albumin [Mass/Vol] 3.7 g/dL Normal 3.4-5.0 [facility] Comment on above: Performed By: #### D DAVIDSON, MG, PHOS, CMP, LIPID, URIC #### [facility] [address] [place] [address] Dr. Sarmad Patino Albumin/Globulin [Mass ratio] 1.1 {ratio} Normal [facility] Comment on above: Performed By: #### D DAVIDSON, MG, PHOS, CMP, LIPID, URIC #### [facility] [address] [place] [address] Dr. Sarmad Patino ALP [Catalytic activity/Vol] 124 U/L Critically high 46-116 [facility] Comment on above: Performed By: #### D DAVIDSON, MG, PHOS, CMP, LIPID, URIC #### [facility] [address] [place] [address] Dr. Sarmad Patino ALT [Catalytic activity/Vol] 17 U/L Normal 14-59 [facility] Comment on above: Performed By: #### D DAVIDSON, MG, PHOS, CMP, LIPID, URIC #### [facility] [address] [place] [address] Dr. Sarmad Patino AST [Catalytic activity/Vol] 16 U/L Normal 15-37 [facility] Comment on above: Performed By: #### D DAVIDSON, MG, PHOS, CMP, LIPID, URIC #### [facility] [address] [place] [address] Dr. Sarmad Patino BILI, CONJUGATED 0.2 mg/dL Normal 0.0-0.2 [facility] Comment on above: Performed By: #### D DAVIDSON, MG, PHOS, CMP, LIPID, URIC #### [facility] [address] [place] [address] Dr. Sarmad Patino Bilirubin [Mass/Vol] 0.6 mg/dL Normal 0.2-1.0 [facility] Comment on above: Performed By: #### D DAVIDSON, MG, PHOS, CMP, LIPID, URIC #### [facility] [address] [place] [address] Dr. Sarmad Patino Globulin (S) [Mass/Vol] 3.4 g/dL Normal [facility] Comment on above: Performed By: #### D DAVIDSON, MG, PHOS, CMP, LIPID, URIC #### [facility] [address] [place] [address] Dr. Sarmad Patino Protein [Mass/Vol] 7.1 g/dL Normal 6.4-8.2 [facility] Comment on above: Performed By: #### D DAVIDSON, MG, PHOS, CMP, LIPID, URIC #### [facility] [address] [place] [address] Dr. Sarmad Patino MAGNESIUMon 03-11-2022 Magnesium [Mass/Vol] 1.6 mg/dL Critically low 1.8-2.4 [facility] Comment on above: Performed By: #### D DAVIDSON, MG, PHOS, CMP, LIPID, URIC #### [facility] [address] [place] [address] Dr. Sarmad Patino PHOSPHORUSon 03-11-2022 Phosphate [Mass/Vol] 3.5 mg/dL Normal 2.6-4.7 [facility] Comment on above: Performed By: #### D DAVIDSON, MG, PHOS, CMP, LIPID, URIC #### [facility] [address] [place] [address] Dr. Sarmad Patino URIC ACID SERUMon 03-11-2022 Urate [Mass/Vol] 5.3 mg/dL Normal 2.6-6.0 [facility] Comment on above: Performed By: #### D DAVIDSON, MG, PHOS, CMP, LIPID, URIC #### [facility] [address] [place] [address] Dr. Sarmad Patino MYCOPHENOLIC ACIDon 02-19-20 22 Mycophenolic Acid 1.5 ug/mL Normal 1.0-3.5 [facility] Comment on above: Performed By: #### D DAVIDSON, MG, PHOS, CMP, LIPID, URIC #### [facility] [address] [address] [address] Sarmad Patino Mycophenolic Acid Glucuronide 32 ug/mL Normal 15-125 [facility] Comment on above: Result Comment: [facility] 's Reference Range: 35-100 mcg/mL. Performed By: #### D DAVIDSON, MG, PHOS, CMP, LIPID, URIC #### [facility] [address] [address] [address] Sarmad Patino BK VIRUS PCR QUANTon 022 BKV DNA QUANT PCR PLASMA Negative Normal Negative [facility] Comment on above: Result Comment: No B K DNA detected. . The linear range of the assay is 22 - 100,000,000 IU/mL. Performed By: #### D DAVIDSON, MG, PHOS, CMP, LIPID, URIC #### [facility] [address] [address] [address] Sarmad Patino Log10 BKV DNA Plasma Normal [facility] Comment on above: Performed By: #### D DAVIDSON, MG, PHOS, CMP, LIPID, URIC #### [facility] [address] [address] [address] Sarmad Patino FK506 (TACROLIMUS) WHOLE BLO ODon 02-11-2022 Tacrolimus (FK506), Blood 4.4 ng/mL Normal 2.0-20.0 [facility] Comment on above: Result Comment: Trou gh (immediately following transplant) 15.0 . Trough (steady state, 2 weeks or more after transplant): 3.0 - 8.0 . Performed by LC-MS/MS technology. Performed By: #### U JUVE, LIPID, MG, CMP, DBIL, PHOS #### [facility] [address] [address] [address] Sarmad Patino BILIRUBIN CONJUGATED (DIRECT )on 02-08-2022 BILI, CONJUGATED 0.1 mg/dL Normal 0.0-0.2 [facility] Comment on above: Performed By: #### D DAVIDSON, MG, PHOS, CMP, LIPID, URIC #### [facility] [address] [address] [address] Sarmad Patino CBC AUTO DIFFon 02-08-2022 BASO # 0.0 103/ul Normal 0.0-0.1 [facility] Comment on above: Performed By: #### D DAVIDSON, MG, PHOS, CMP, LIPID, URIC #### [facility] [address] [address] [address] Sarmad Patino Basophils/100 WBC (Bld) 0.3 % Normal 0.2-2.0 [facility] Comment on above: Performed By: #### D DAVIDSON, MG, PHOS, CMP, LIPID, URIC #### [facility] [address] [place] [address] Dr. Sarmad Patino EO # 0.1 103/ul Normal 0.0-0.7 [facility] Comment on above: Performed By: #### D DAVIDSON, MG, PHOS, CMP, LIPID, URIC #### [facility] [address] [place] [address] Dr. Sarmad Patino Eosinophils/100 WBC (Bld) 1.0 % Normal 0.9-7.0 [facility] Comment on above: Performed By: #### D DAVIDSON, MG, PHOS, CMP, LIPID, URIC #### [facility] [address] [place] [address] Dr. Sarmad Patino Erythrocyte distribution width (RBC) [Ratio] 15.9 % Critically high 11.0-15.0 [facility] Comment on above: Performed By: #### D DAVIDSON, MG, PHOS, CMP, LIPID, URIC #### [facility] [address] [place] [address] Dr. Sarmad Patino Hematocrit (Bld) [Volume fraction] 42.2 % Normal 36.0-48.0 [facility] Comment on above: Performed By: #### D DAVIDSON, MG, PHOS, CMP, LIPID, URIC #### [facility] [address] [place] [address] Dr. Sarmad Patino Hemoglobin (Bld) [Mass/Vol] 13.8 g/dL Normal 12.0-16.0 [facility] Comment on above: Performed By: #### D DAVIDSON, MG, PHOS, CMP, LIPID, URIC #### [facility] [address] [place] [address] Dr. Sarmad Patino IG # 0.10 10e3/ul Critically high 0.00-0.03 [facility] Comment on above: Performed By: #### D DAVIDSON, MG, PHOS, CMP, LIPID, URIC #### [facility] [address] [address] [address] Sarmad Patino IG % 1.1 % Critically high 0.0-0.5 [facility] Comment on above: Performed By: #### D DAVIDSON, MG, PHOS, CMP, LIPID, URIC #### [facility] [address] [place] [address] Dr. Sarmad Patino LYMPH # 1.2 103/ul Normal 1.2-3.8 [facility] Comment on above: Performed By: #### D DAVIDSON, MG, PHOS, CMP, LIPID, URIC #### [facility] [address] [address] [address] Sarmad Patino Lymphocytes/100 WBC (Bld) 12.6 % Critically low 20.5-60.0 [facility] Comment on above: Performed By: #### D DAVIDSON, MG, PHOS, CMP, LIPID, URIC #### [facility] [address] [place] [address] Dr. Sarmad Patino MANUAL DIFF REQ NO Normal [facility] Comment on above: Performed By: #### D DAVIDSON, MG, PHOS, CMP, LIPID, URIC #### [facility] [address] [address] [address] Sarmad Patino MCH (RBC) [Entitic mass] 28.3 pg Normal 26.7-34.0 [facility] Comment on above: Performed By: #### D DAVIDSON, MG, PHOS, CMP, LIPID, URIC #### [facility] [address] [place] [address] Dr. Sarmad Patino MCHC (RBC) [Mass/Vol] 32.7 g/dL Normal 29.9-35.2 [facility] Comment on above: Performed By: #### D DAVIDSON, MG, PHOS, CMP, LIPID, URIC #### [facility] [address] [place] [address] Dr. Sarmad Patino MCV (RBC) [Entitic vol] 86.7 fL Normal 81.0-99.0 [facility] Comment on above: Performed By: #### D DAVIDSON, MG, PHOS, CMP, LIPID, URIC #### [facility] [address] [place] [address] Dr. Sarmad Patino MONO # 1.0 103/ul Critically high 0.3-0.8 [facility] Comment on above: Performed By: #### D DAVIDSON, MG, PHOS, CMP, LIPID, URIC #### [facility] [address] [place] [address] Dr. Sarmad Patino Monocytes/100 WBC (Bld) 10.7 % Normal 1.7-12.0 [facility] Comment on above: Performed By: #### D DAVIDSON, MG, PHOS, CMP, LIPID, URIC #### [facility] [address] [place] [address] Dr. Sarmad Patino NEUT # 6.9 103/ul Critically high 1.4-6.5 [facility] Comment on above: Performed By: #### D DAVIDSON, MG, PHOS, CMP, LIPID, URIC #### [facility] [address] [place] [address] Dr. Saramd Patino Neutrophils/100 WBC (Bld) 74.3 % Normal 43.0-75.0 [facility] Comment on above: Performed By: #### D DAVIDSON, MG, PHOS, CMP, LIPID, URIC #### [facility] [address] [place] [address] Dr. Sarmad Patino Platelet mean volume (Bld) [Entitic vol] 11.1 fL Normal 9.5-13.5 [facility] Comment on above: Performed By: #### D DAVIDSON, MG, PHOS, CMP, LIPID, URIC #### [facility] [address] [address] [address] Sarmad Patino PLT 307 103/ul Normal 150-450 [facility] Comment on above: Performed By: #### D DAVIDSON, MG, PHOS, CMP, LIPID, URIC #### [facility] [address] [address] [address] Sarmad Patino RBC 4.87 106/ul Normal 4.20-5.40 [facility] Comment on above: Performed By: #### D DAVIDSON, MG, PHOS, CMP, LIPID, URIC #### [facility] [address] [address] [address] Sarmad Patino WBC 9.3 103/ul Normal 4.0-11.0 [facility] Comment on above: Performed By: #### D DAVIDSON, MG, PHOS, CMP, LIPID, URIC #### [facility] [address] [address] [address] Sarmad Patino GLYCOHEMOGLOBIN A1Con 2021 ADA RECOMMENDATION SEE BELOW Normal [facility] Comment on above: Result Comment: ADA RECOMMENDED LIMIT 4.0 - 6.0 ADA THERAPEUTIC TARGET < 7.0 ACTION SUGGESTED > 7.0 Performed By: #### D DAVIDSON, MG, PHOS, CMP, LIPID, URIC #### [facility] [address] [address] [address] Sarmad Patino Glucose [Mass/Vol] 134 mg/dL Normal [facility] Comment on above: Performed By: #### D DAVIDSON, MG, PHOS, CMP, LIPID, URIC #### [facility] [address] [address] [address] Sarmad Patino HbA1c (Bld) [Mass fraction] 6.3 % Critically high 4.5-6.2 [facility] Comment on above: Performed By: #### D DAVIDSON, MG, PHOS, CMP, LIPID, URIC #### [facility] [address] [address] [address] Sarmad Patino LIPID PROFILEon 02-08-2022 CHOL-HDL RATIO NORM SEE BELOW Normal [facility] Comment on above: Result Comment: 3.3 - 4.4 LOW RISK 4.4 - 7.1 AVERAGE RISK 7.1 - 11.0 MODERATE RISK >11.0 HIGH RISK Performed By: #### D DAVIDSON, MG, PHOS, CMP, LIPID, URIC #### [facility] [address] [place] [address] Dr. Sarmad Patino Cholesterol [Mass/Vol] 180 mg/dL Normal <=200 [facility] Comment on above: Performed By: #### D DAVIDSON, MG, PHOS, CMP, LIPID, URIC #### [facility] [address] [place] [address] Dr. Sarmad Patino Cholesterol in HDL [Mass/Vol] 58 mg/dL Normal 40-60 [facility] Comment on above: Performed By: #### D DAVIDSON, MG, PHOS, CMP, LIPID, URIC #### [facility] [address] [place] [address] Dr. Sarmad Patino Cholesterol in LDL [Mass/Vol] 86.6 mg/dL Normal [facility] Comment on above: Performed By: #### D DAVIDSON, MG, PHOS, CMP, LIPID, URIC #### [facility] [address] [place] [address] Dr. Sarmad Patino Cholesterol.total/Cho lesterol in HDL [Mass ratio] 3.1 {ratio} Normal [facility] Comment on above: Performed By: #### D DAVIDSON, MG, PHOS, CMP, LIPID, URIC #### [facility] [address] [place] [address] Dr. Sarmad Patino HDL NORMAL > or = 60 mg/dl - LO W CARDIOVASCULAR RISK <40 mg/dl - HIGH CARDIOVASCULAR RISK Normal [facility] Comment on above: Performed By: #### D DAVIDSON, MG, PHOS, CMP, LIPID, URIC #### [facility] [address] [place] [address] Dr. Sarmad Patino LDL CALC NORMAL SEE BELOW Normal [facility] Comment on above: Result Comment: <100 mg/dl OPTIMAL 100 - 129 mg/dl NEAR OR ABOVE OPTIMAL 130 - 159 mg/dl BORDERLINE HIGH 160 - 189 mg/dl HIGH >190 mg/dl VERY HIGH Performed By: #### D DAVIDSON, MG, PHOS, CMP, LIPID, URIC #### [facility] [address] [address] [address] Sarmad Patino Triglyceride [Mass/Vol] 177 mg/dL Critically high <=150 [facility] Comment on above: Performed By: #### D DAVIDSON, MG, PHOS, CMP, LIPID, URIC #### [facility] [address] [address] [address] Sarmad Patino VLDL CALC 35.4 mg/dL Normal [facility] Comment on above: Performed By: #### D DAVIDSON, MG, PHOS, CMP, LIPID, URIC #### [facility] [address] [address] [address] Sarmad Patino MAGNESIUMon 02-08-2022 Magnesium [Mass/Vol] 1.8 mg/dL Normal 1.8-2.4 [facility] Comment on above: Performed By: #### D DAVIDSON, MG, PHOS, CMP, LIPID, URIC #### [facility] [address] [address] [address] Sarmad Patino PHOSPHORUSon 02-08-2022 Phosphate [Mass/Vol] 3.3 mg/dL Normal 2.6-4.7 [facility] Comment on above: Performed By: #### D DAVIDSON, MG, PHOS, CMP, LIPID, URIC #### [facility] [address] [place] [address] Dr. Sarmad Patino PROF 14(COMP METB)on 022 Albumin [Mass/Vol] 3.8 g/dL Normal 3.4-5.0 [facility] Comment on above: Performed By: #### D DAVIDSON, MG, PHOS, CMP, LIPID, URIC #### [facility] [address] [address] [address] Sarmad Patino Albumin/Globulin [Mass ratio] 1.3 {ratio} Normal [facility] Comment on above: Performed By: #### D DAVIDSON, MG, PHOS, CMP, LIPID, URIC #### [facility] [address] [address] [address] Sarmad Patino ALP [Catalytic activity/Vol] 144 U/L Critically high 46-116 [facility] Comment on above: Performed By: #### D DAVIDSON, MG, PHOS, CMP, LIPID, URIC #### [facility] [address] [address] [address] Sarmad Patino ALT [Catalytic activity/Vol] 24 U/L Normal 14-59 [facility] Comment on above: Performed By: #### D DAVIDSON, MG, PHOS, CMP, LIPID, URIC #### [facility] [address] [address] [address] Sarmad Patino Anion gap [Moles/Vol] 13.7 mmol/L Normal [facility] Comment on above: Performed By: #### D DAVIDSON, MG, PHOS, CMP, LIPID, URIC #### [facility] [address] [place] [address] Dr. Sarmad Patino AST [Catalytic activity/Vol] 19 U/L Normal 15-37 [facility] Comment on above: Performed By: #### D DAVIDSON, MG, PHOS, CMP, LIPID, URIC #### [facility] [address] [place] [address] Dr. Sarmad Patino Bilirubin [Mass/Vol] 0.5 mg/dL Normal 0.2-1.0 [facility] Comment on above: Performed By: #### D DAVIDSON, MG, PHOS, CMP, LIPID, URIC #### [facility] [address] [place] [address] Dr. Sarmad Patino Calcium [Mass/Vol] 9.6 mg/dL Normal 8.5-10.1 [facility] Comment on above: Performed By: #### D DAVIDSON, MG, PHOS, CMP, LIPID, URIC #### [facility] [address] [address] [address] Sarmad Patino Chloride [Moles/Vol] 103 mmol/L Normal 98-107 [facility] Comment on above: Performed By: #### D DAVIDSON, MG, PHOS, CMP, LIPID, URIC #### [facility] [address] [address] [address] Sarmad Patino CO2 [Moles/Vol] 26.6 mmol/L Normal 21.0-32.0 [facility] Comment on above: Performed By: #### D DAVIDSON, MG, PHOS, CMP, LIPID, URIC #### [facility] [address] [place] [address] Dr. Sarmad Patino Creatinine [Mass/Vol] 0.75 mg/dL Normal 0.55-1.02 [facility] Comment on above: Performed By: #### D DAVIDSON, MG, PHOS, CMP, LIPID, URIC #### [facility] [address] [place] [address] Dr. Sarmad Patino EGFR-AF MOZAMBICAN >60 Normal >=60 [facility] Comment on above: Performed By: #### D DAVIDSON, MG, PHOS, CMP, LIPID, URIC #### [facility] [address] [place] [address] Dr. Sarmad Patino EGFR-NON AF MOZAMBICAN >60 Normal >=60 [facility] Comment on above: Performed By: #### D DAVIDSON, MG, PHOS, CMP, LIPID, URIC #### [facility] [address] [place] [address] Dr. Sarmad aPtino Globulin (S) [Mass/Vol] 3.0 g/dL Normal [facility] Comment on above: Performed By: #### D DAVIDSON, MG, PHOS, CMP, LIPID, URIC #### [facility] [address] [place] [address] Dr. Sarmad Patino Glucose [Mass/Vol] 99 mg/dL Normal 74-106 [facility] Comment on above: Performed By: #### D DAVIDSON, MG, PHOS, CMP, LIPID, URIC #### [facility] [address] [place] [address] Dr. Sarmad Patino Potassium [Moles/Vol] 4.3 mmol/L Normal 3.5-5.1 [facility] Comment on above: Performed By: #### D DAVIDSON, MG, PHOS, CMP, LIPID, URIC #### [facility] [address] [place] [address] Dr. Sarmad Patino Protein [Mass/Vol] 6.8 g/dL Normal 6.4-8.2 [facility] Comment on above: Performed By: #### D DAVIDSON, MG, PHOS, CMP, LIPID, URIC #### [facility] [address] [address] [address] Sarmad Patino Sodium [Moles/Vol] 139 mmol/L Normal 136-145 [facility] Comment on above: Performed By: #### D DAVIDSON, MG, PHOS, CMP, LIPID, URIC #### [facility] [address] [place] [address] Dr. Sarmad Patino Urea nitrogen [Mass/Vol] 16.0 mg/dL Normal 7.0-18.0 [facility] Comment on above: Performed By: #### D DAVIDSON, MG, PHOS, CMP, LIPID, URIC #### [facility] [address] [place] [address] Dr. Sarmad Patino Urea nitrogen/Creatinine [Mass ratio] 21.3 mg/mg Normal [facility] Comment on above: Performed By: #### D DAVIDSON, MG, PHOS, CMP, LIPID, URIC #### [facility] [address] [place] [address] Dr. Sarmad Patino URIC ACID SERUMon 02-08-2022 Urate [Mass/Vol] 5.4 mg/dL Normal 2.6-6.0 [facility] Comment on above: Performed By: #### D DAVIDSON, MG, PHOS, CMP, LIPID, URIC #### [facility] [address] [place] [address] Dr. Sarmad Patino BK VIRUS PCR QUANTon 022 BKV DNA QUANT PCR PLASMA 27 IU/mL Normal Negative [facility] Comment on above: Result Comment: The linear range of the assay is 22 - 100,000,000 IU/mL. Performed By: #### D DAVIDSON, MG, PHOS, CMP, LIPID, URIC #### [facility] [address] [place] [address] Dr. Sarmad Patino Log10 BKV DNA Plasma 1.431 log10 IU/mL Normal [facility] Comment on above: Performed By: #### D DAVIDSON, MG, PHOS, CMP, LIPID, URIC #### [facility] [address] [place] [address] Dr. Sarmad Patino FK506 (TACROLIMUS) WHOLE BLO ODon 01-30-2022 Tacrolimus (FK506), Blood 6.5 ng/mL Normal 2.0-20.0 [facility] Comment on above: Result Comment: Trou gh (immediately following transplant) 15.0 . Trough (steady state, 2 weeks or more after transplant): 3.0 - 8.0 . Performed by LC-MS/MS technology. Performed By: #### D DAVIDSON, MG, PHOS, CMP, LIPID, URIC #### [facility] [address] [place] [address] Dr. Sarmad Patino RAPAMUNE(SIROLIMUS)on 2021 Rapamune(Sirolimus), whole blood 9.9 ng/mL Normal 3.0-20.0 [facility] Comment on above: Result Comment: Perf ormed by LC/MS-MS technology . This test was developed and its performance characteristics determined by [employer]. It has not been cleared or approved by the Food and Drug Administration. Performed By: #### D DAVIDSON, MG, PHOS, CMP, LIPID, URIC #### [facility] [address] [place] [address] Dr. Sarmad Patino BILIRUBIN CONJUGATED (DIRECT )on 01-28-2022 BILI, CONJUGATED 0.1 mg/dL Normal 0.0-0.2 [facility] Comment on above: Performed By: #### D DAVIDSON, MG, PHOS, CMP, LIPID, URIC #### [facility] [address] [place] [address] Dr. Sarmad Patino CBC AUTO DIFFon 01-28-2022 BASO # 0.0 103/ul Normal 0.0-0.1 [facility] Comment on above: Performed By: #### D DAVIDSON, MG, PHOS, CMP, LIPID, URIC #### [facility] [address] [place] [address] Dr. Sarmad Patino Basophils/100 WBC (Bld) 0.3 % Normal 0.2-2.0 [facility] Comment on above: Performed By: #### D DAVIDSON, MG, PHOS, CMP, LIPID, URIC #### [facility] [address] [place] [address] Dr. Sarmad Patino EO # 0.2 103/ul Normal 0.0-0.7 [facility] Comment on above: Performed By: #### D DAVIDSON, MG, PHOS, CMP, LIPID, URIC #### [facility] [address] [address] [address] Sarmad Patino Eosinophils/100 WBC (Bld) 3.1 % Normal 0.9-7.0 [facility] Comment on above: Performed By: #### D DAVIDSON, MG, PHOS, CMP, LIPID, URIC #### [facility] [address] [place] [address] Dr. Sarmad Patino Erythrocyte distribution width (RBC) [Ratio] 15.4 % Critically high 11.0-15.0 [facility] Comment on above: Performed By: #### D DAVIDSON, MG, PHOS, CMP, LIPID, URIC #### [facility] [address] [place] [address] Dr. Sarmad Patino Hematocrit (Bld) [Volume fraction] 42.6 % Normal 36.0-48.0 [facility] Comment on above: Performed By: #### D DAVIDSON, MG, PHOS, CMP, LIPID, URIC #### [facility] [address] [place] [address] Dr. Sarmad Patino Hemoglobin (Bld) [Mass/Vol] 14.0 g/dL Normal 12.0-16.0 [facility] Comment on above: Performed By: #### D DAVIDSON, MG, PHOS, CMP, LIPID, URIC #### [facility] [address] [place] [address] Dr. Sarmad Patino IG # 0.05 10e3/ul Critically high 0.00-0.03 [facility] Comment on above: Performed By: #### D DAVIDSON, MG, PHOS, CMP, LIPID, URIC #### [facility] [address] [place] [address] Dr. Sarmad Patino IG % 0.7 % Critically high 0.0-0.5 [facility] Comment on above: Performed By: #### D DAVIDSON, MG, PHOS, CMP, LIPID, URIC #### [facility] [address] [place] [address] Dr. Sarmad Patino LYMPH # 1.1 103/ul Critically low 1.2-3.8 [facility] Comment on above: Performed By: #### D DAVIDSON, MG, PHOS, CMP, LIPID, URIC #### [facility] [address] [place] [address] Dr. Sarmad Patino Lymphocytes/100 WBC (Bld) 15.8 % Critically low 20.5-60.0 [facility] Comment on above: Performed By: #### D DAVIDSON, MG, PHOS, CMP, LIPID, URIC #### [facility] [address] [place] [address] Dr. Sarmad Patino MANUAL DIFF REQ NO Normal [facility] Comment on above: Performed By: #### D DAVIDSON, MG, PHOS, CMP, LIPID, URIC #### [facility] [address] [place] [address] Dr. Sarmad Patino MCH (RBC) [Entitic mass] 28.3 pg Normal 26.7-34.0 [facility] Comment on above: Performed By: #### D DAVIDSON, MG, PHOS, CMP, LIPID, URIC #### [facility] [address] [place] [address] Dr. Sarmad Patino MCHC (RBC) [Mass/Vol] 32.9 g/dL Normal 29.9-35.2 [facility] Comment on above: Performed By: #### D DAVIDSON, MG, PHOS, CMP, LIPID, URIC #### [facility] [address] [place] [address] Dr. Sarmad Patino MCV (RBC) [Entitic vol] 86.2 fL Normal 81.0-99.0 [facility] Comment on above: Performed By: #### D DAVIDSON, MG, PHOS, CMP, LIPID, URIC #### [facility] [address] [place] [address] Dr. Sarmad Patino MONO # 0.8 103/ul Normal 0.3-0.8 [facility] Comment on above: Performed By: #### D DAVIDSON, MG, PHOS, CMP, LIPID, URIC #### [facility] [address] [address] [address] Sarmad Patino Monocytes/100 WBC (Bld) 11.0 % Normal 1.7-12.0 [facility] Comment on above: Performed By: #### D DAVIDSON, MG, PHOS, CMP, LIPID, URIC #### [facility] [address] [place] [address] Dr. Sarmad Patino NEUT # 4.8 103/ul Normal 1.4-6.5 [facility] Comment on above: Performed By: #### D DAVIDSON, MG, PHOS, CMP, LIPID, URIC #### [facility] [address] [place] [address] Dr. Sarmad Patino Neutrophils/100 WBC (Bld) 69.1 % Normal 43.0-75.0 [facility] Comment on above: Performed By: #### D DAVIDSON, MG, PHOS, CMP, LIPID, URIC #### [facility] [address] [place] [address] Dr. Sarmad Patino Platelet mean volume (Bld) [Entitic vol] 10.8 fL Normal 9.5-13.5 [facility] Comment on above: Performed By: #### D DAVIDSON, MG, PHOS, CMP, LIPID, URIC #### [facility] [address] [place] [address] Dr. Sarmad Patino PLT 208 103/ul Normal 150-450 [facility] Comment on above: Performed By: #### D DAVIDSON, MG, PHOS, CMP, LIPID, URIC #### [facility] [address] [place] [address] Dr. Sarmad Patino RBC 4.94 106/ul Normal 4.20-5.40 [facility] Comment on above: Performed By: #### D DAVIDSON, MG, PHOS, CMP, LIPID, URIC #### [facility] [address] [place] [address] Dr. Sarmad Patino WBC 7.0 103/ul Normal 4.0-11.0 [facility] Comment on above: Performed By: #### D DAVIDSON, MG, PHOS, CMP, LIPID, URIC #### [facility] [address] [address] [address] Sarmad Patino GLYCOHEMOGLOBIN A1Con 2021 ADA RECOMMENDATION SEE BELOW Normal [facility] Comment on above: Result Comment: ADA RECOMMENDED LIMIT 4.0 - 6.0 ADA THERAPEUTIC TARGET < 7.0 ACTION SUGGESTED > 7.0 Performed By: #### D DAVIDSON, MG, PHOS, CMP, LIPID, URIC #### [facility] [address] [address] [address] Sarmad Patino Glucose [Mass/Vol] 137 mg/dL Normal [facility] Comment on above: Performed By: #### D DAVIDSON, MG, PHOS, CMP, LIPID, URIC #### [facility] [address] [place] [address] Dr. Sarmad Patino HbA1c (Bld) [Mass fraction] 6.4 % Critically high 4.5-6.2 [facility] Comment on above: Performed By: #### D DAVIDSON, MG, PHOS, CMP, LIPID, URIC #### [facility] [address] [address] [address] Sarmad Patino LIPID PROFILEon 01-28-2022 CHOL-HDL RATIO NORM SEE BELOW Normal [facility] Comment on above: Result Comment: 3.3 - 4.4 LOW RISK 4.4 - 7.1 AVERAGE RISK 7.1 - 11.0 MODERATE RISK >11.0 HIGH RISK Performed By: #### D DAVIDSON, MG, PHOS, CMP, LIPID, URIC #### [facility] [address] [address] [address] Sarmad Patino Cholesterol [Mass/Vol] 209 mg/dL Critically high <=200 [facility] Comment on above: Performed By: #### D DAVIDSON, MG, PHOS, CMP, LIPID, URIC #### [facility] [address] [address] [address] Sarmad Patino Cholesterol in HDL [Mass/Vol] 59 mg/dL Normal 40-60 [facility] Comment on above: Performed By: #### D DAVIDSON, MG, PHOS, CMP, LIPID, URIC #### [facility] [address] [address] [address] Sarmad Patino Cholesterol in LDL [Mass/Vol] 100.4 mg/dL Normal [facility] Comment on above: Performed By: #### D DAVIDSON, MG, PHOS, CMP, LIPID, URIC #### [facility] [address] [address] [address] Sarmad Patino Cholesterol.total/Cho lesterol in HDL [Mass ratio] 3.5 {ratio} Normal [facility] Comment on above: Performed By: #### D DAVIDSON, MG, PHOS, CMP, LIPID, URIC #### [facility] [address] [address] [address] Sarmad Patino HDL NORMAL > or = 60 mg/dl - LO W CARDIOVASCULAR RISK <40 mg/dl - HIGH CARDIOVASCULAR RISK Normal [facility] Comment on above: Performed By: #### D DAVIDSON, MG, PHOS, CMP, LIPID, URIC #### [facility] [address] [address] [address] Sarmad Patino LDL CALC NORMAL SEE BELOW Normal [facility] Comment on above: Result Comment: <100 mg/dl OPTIMAL 100 - 129 mg/dl NEAR OR ABOVE OPTIMAL 130 - 159 mg/dl BORDERLINE HIGH 160 - 189 mg/dl HIGH >190 mg/dl VERY HIGH Performed By: #### D DAVIDSON, MG, PHOS, CMP, LIPID, URIC #### [facility] [address] [address] [address] Sarmad Patino Triglyceride [Mass/Vol] 248 mg/dL Critically high <=150 [facility] Comment on above: Performed By: #### D DAVIDSON, MG, PHOS, CMP, LIPID, URIC #### [facility] [address] [address] [address] Sarmad Patino VLDL CALC 49.6 mg/dL Normal [facility] Comment on above: Performed By: #### D DAVIDSON, MG, PHOS, CMP, LIPID, URIC #### [facility] [address] [address] [address] Sarmad Patino MAGNESIUMon 01-28-2022 Magnesium [Mass/Vol] 1.6 mg/dL Critically low 1.8-2.4 [facility] Comment on above: Performed By: #### D DAVIDSON, MG, PHOS, CMP, LIPID, URIC #### [facility] [address] [place] [address] Dr. Sarmad Patino PHOSPHORUSon 01-28-2022 Phosphate [Mass/Vol] 2.7 mg/dL Normal 2.6-4.7 [facility] Comment on above: Performed By: #### D DAVIDSON, MG, PHOS, CMP, LIPID, URIC #### [facility] [address] [place] [address] Dr. Sarmad Patino PROF 14(COMP METB)on 022 Albumin [Mass/Vol] 3.3 g/dL Critically low 3.4-5.0 [facility] Comment on above: Performed By: #### D DAVIDSON, MG, PHOS, CMP, LIPID, URIC #### [facility] [address] [place] [address] Dr. Sarmad Patino Albumin/Globulin [Mass ratio] 0.9 {ratio} Normal [facility] Comment on above: Performed By: #### D DAVIDSON, MG, PHOS, CMP, LIPID, URIC #### [facility] [address] [place] [address] Dr. Sarmad Patino ALP [Catalytic activity/Vol] 124 U/L Critically high 46-116 [facility] Comment on above: Performed By: #### D DAVIDSON, MG, PHOS, CMP, LIPID, URIC #### [facility] [address] [place] [address] Dr. Sarmad Patino ALT [Catalytic activity/Vol] 28 U/L Normal 14-59 [facility] Comment on above: Performed By: #### D DAVIDSON, MG, PHOS, CMP, LIPID, URIC #### [facility] [address] [place] [address] Dr. Sarmad Patino Anion gap [Moles/Vol] 12.0 mmol/L Normal [facility] Comment on above: Performed By: #### D DAVIDSON, MG, PHOS, CMP, LIPID, URIC #### [facility] [address] [address] [address] Sarmad Patino AST [Catalytic activity/Vol] 20 U/L Normal 15-37 [facility] Comment on above: Performed By: #### D DAVIDSON, MG, PHOS, CMP, LIPID, URIC #### [facility] [address] [place] [address] Dr. Sarmad Patino Bilirubin [Mass/Vol] 0.5 mg/dL Normal 0.2-1.0 [facility] Comment on above: Performed By: #### D DAVIDSON, MG, PHOS, CMP, LIPID, URIC #### [facility] [address] [place] [address] Dr. Sarmad Patino Calcium [Mass/Vol] 9.1 mg/dL Normal 8.5-10.1 [facility] Comment on above: Performed By: #### D DAVIDSON, MG, PHOS, CMP, LIPID, URIC #### [facility] [address] [place] [address] Dr. Sarmad Patino Chloride [Moles/Vol] 104 mmol/L Normal 98-107 [facility] Comment on above: Performed By: #### D DAVIDSON, MG, PHOS, CMP, LIPID, URIC #### [facility] [address] [place] [address] Dr. Sarmad Patino CO2 [Moles/Vol] 25.7 mmol/L Normal 21.0-32.0 [facility] Comment on above: Performed By: #### D DAVIDSON, MG, PHOS, CMP, LIPID, URIC #### [facility] [address] [place] [address] Dr. Sarmad Patino Creatinine [Mass/Vol] 0.77 mg/dL Normal 0.55-1.02 [facility] Comment on above: Performed By: #### D DAVIDSON, MG, PHOS, CMP, LIPID, URIC #### [facility] [address] [place] [address] Dr. Sarmad Patino EGFR-AF MOZAMBICAN >60 Normal >=60 [facility] Comment on above: Performed By: #### D DAVIDSON, MG, PHOS, CMP, LIPID, URIC #### [facility] [address] [address] [address] aSrmad Patino EGFR-NON AF MOZAMBICAN >60 Normal >=60 [facility] Comment on above: Performed By: #### D DAVIDSON, MG, PHOS, CMP, LIPID, URIC #### [facility] [address] [place] [address] Dr. Sarmad Patino Globulin (S) [Mass/Vol] 3.7 g/dL Normal [facility] Comment on above: Performed By: #### D DAVIDSON, MG, PHOS, CMP, LIPID, URIC #### [facility] [address] [place] [address] Dr. Sarmad Patino Glucose [Mass/Vol] 108 mg/dL Critically high 74-106 [facility] Comment on above: Performed By: #### D DAVIDSON, MG, PHOS, CMP, LIPID, URIC #### [facility] [address] [place] [address] Dr. Sarmad Patino Potassium [Moles/Vol] 3.7 mmol/L Normal 3.5-5.1 [facility] Comment on above: Performed By: #### D DAVIDSON, MG, PHOS, CMP, LIPID, URIC #### [facility] [address] [place] [address] Dr. Sarmad Patino Protein [Mass/Vol] 7.0 g/dL Normal 6.4-8.2 [facility] Comment on above: Performed By: #### D DAVIDSON, MG, PHOS, CMP, LIPID, URIC #### [facility] [address] [place] [address] Dr. Sarmad Patino Sodium [Moles/Vol] 138 mmol/L Normal 136-145 [facility] Comment on above: Performed By: #### D DAVIDSON, MG, PHOS, CMP, LIPID, URIC #### [facility] [address] [place] [address] Dr. Sarmad Patino Urea nitrogen [Mass/Vol] 15.0 mg/dL Normal 7.0-18.0 [facility] Comment on above: Performed By: #### D DAVIDSON, MG, PHOS, CMP, LIPID, URIC #### [facility] [address] [address] [address] Sarmad Patino Urea nitrogen/Creatinine [Mass ratio] 19.5 mg/mg Normal [facility] Comment on above: Performed By: #### D DAVIDSON, MG, PHOS, CMP, LIPID, URIC #### [facility] [address] [address] [address] Sarmad Patino URIC ACID SERUMon 01-28-2022 Urate [Mass/Vol] 4.3 mg/dL Normal 2.6-6.0 [facility] Comment on above: Performed By: #### D DAVIDSON, MG, PHOS, CMP, LIPID, URIC #### [facility] [address] [address] [address] Sarmad Patino Quick Strepon 01-12-2022 S. pyogenes Org specific cx Ql (Throat) Negative [employer] Other Quick Strep [employer] Other XR CHEST 1 Von 01-07-2022 XR [...] BRITTON BERNARD Date: 2022-01-07 15:00 Normal [facility] CBC W MANUAL DIFFon 01-04-20 22 ATYPICAL LYMPH # 1.40 103/ul Normal [facility] Comment on above: Performed By: #### D DAVIDSON, MG, PHOS, CMP, LIPID, URIC #### [facility] [address] [address] [address] Sarmad Patino ATYPICAL LYMPH % 10 % Normal [facility] Comment on above: Performed By: #### D DAVIDSON, MG, PHOS, CMP, LIPID, URIC #### [facility] [address] [address] [address] Sarmad Patino BAND # 0.6 103/ul Critically high 0.0-0.3 [facility] Comment on above: Performed By: #### D DAVIDSON, MG, PHOS, CMP, LIPID, URIC #### [facility] [address] [address] [address] Sarmad Patino BAND % 4 % Normal 0-5 [facility] Comment on above: Performed By: #### D DAVIDSON, MG, PHOS, CMP, LIPID, URIC #### [facility] [address] [address] [address] Sarmad Patino BASOM # 0.00 103/ul Normal 0.00-0.10 [facility] Comment on above: Performed By: #### D DAVIDSON, MG, PHOS, CMP, LIPID, URIC #### [facility] [address] [place] [address] Dr. Sarmad Patino BASOM % 0.0 % Critically low 0.2-2.0 [facility] Comment on above: Performed By: #### D DAVIDSON, MG, PHOS, CMP, LIPID, URIC #### [facility] [address] [place] [address] Dr. Sarmad Patino BLAST # Normal [facility] Comment on above: Performed By: #### D DAVIDSON, MG, PHOS, CMP, LIPID, URIC #### [facility] [address] [place] [address] Dr. Sarmad Patino BLAST % Normal [facility] Comment on above: Performed By: #### D DAVIDSON, MG, PHOS, CMP, LIPID, URIC #### [facility] [address] [address] [address] Sarmad Patino CORRECTED WBC Normal 4.0-11.0 [facility] Comment on above: Performed By: #### D DAVIDSON, MG, PHOS, CMP, LIPID, URIC #### [facility] [address] [address] [address] Sarmad Patino EOS # 0.14 103/ul Normal 0.00-0.70 [facility] Comment on above: Performed By: #### D DAVIDSON, MG, PHOS, CMP, LIPID, URIC #### [facility] [address] [place] [address] Dr. Sarmad Patino EOS% 1.0 % Normal 0.9-7.0 [facility] Comment on above: Performed By: #### D DAVIDSON, MG, PHOS, CMP, LIPID, URIC #### [facility] [address] [place] [address] Dr. Sarmad Patino HCT 42.8 % Normal 36.0-48.0 [facility] Comment on above: Performed By: #### D DAVIDSON, MG, PHOS, CMP, LIPID, URIC #### [facility] [address] [place] [address] Dr. Sarmad Patino HGB 14.2 g/dl Normal 12.0-16.0 [facility] Comment on above: Performed By: #### D DAVIDSON, MG, PHOS, CMP, LIPID, URIC #### [facility] [address] [place] [address] Dr. Sarmad Patino LYMPHM # 0.00 103/ul Critically low 1.20-3.80 [facility] Comment on above: Performed By: #### D DAVIDSON, MG, PHOS, CMP, LIPID, URIC #### [facility] [address] [place] [address] Dr. Sarmad Patino LYMPHM% 0.0 % Critically low 20.5-60.0 [facility] Comment on above: Performed By: #### D DAVIDSON, MG, PHOS, CMP, LIPID, URIC #### [facility] [address] [place] [address] Dr. Sarmad Patino MCH 28.8 pg Normal 26.7-34.0 [facility] Comment on above: Performed By: #### D DAVIDSON, MG, PHOS, CMP, LIPID, URIC #### [facility] [address] [place] [address] Dr. Sarmad Patino MCHC 33.2 g/dl Normal 29.9-35.2 [facility] Comment on above: Performed By: #### D DAVIDSON, MG, PHOS, CMP, LIPID, URIC #### [facility] [address] [address] [address] Sarmad Patino MCV 86.8 fL Normal 81.0-99.0 [facility] Comment on above: Performed By: #### D DAVIDSON, MG, PHOS, CMP, LIPID, URIC #### [facility] [address] [address] [address] Sarmad Patino METAMYELOCYTE # Normal [facility] Comment on above: Performed By: #### D DAVIDSON, MG, PHOS, CMP, LIPID, URIC #### [facility] [address] [address] [address] Sarmad Patino METAMYELOCYTE % Normal [facility] Comment on above: Performed By: #### D DAVIDSON, MG, PHOS, CMP, LIPID, URIC #### [facility] [address] [address] [address] Sarmad Patino MONOM# 0.84 103/ul Critically high 0.30-0.80 [facility] Comment on above: Performed By: #### D DAVIDSON, MG, PHOS, CMP, LIPID, URIC #### [facility] [address] [place] [address] Dr. Sarmad Patino MONOM% 6.0 % Normal 1.7-12.0 [facility] Comment on above: Performed By: #### D DAVIDSON, MG, PHOS, CMP, LIPID, URIC #### [facility] [address] [address] [address] Sarmad Patino MPV 11.5 fL Normal 9.5-13.5 [facility] Comment on above: Performed By: #### D DAVIDSON, MG, PHOS, CMP, LIPID, URIC #### [facility] [address] [place] [address] Dr. Sarmad Patino MYELOCYTE # 0.3 103/ul Normal [facility] Comment on above: Performed By: #### D DAVIDSON, MG, PHOS, CMP, LIPID, URIC #### [facility] [address] [place] [address] Dr. Sarmad Patino MYELOCYTE % 2 % Normal [facility] Comment on above: Performed By: #### D DAVIDSON, MG, PHOS, CMP, LIPID, URIC #### [facility] [address] [address] [address] Sarmad Patino NRBC Normal [facility] Comment on above: Performed By: #### D DAVIDSON, MG, PHOS, CMP, LIPID, URIC #### [facility] [address] [address] [address] Sarmad Patino PLT 180 103/ul Normal 150-450 [facility] Comment on above: Performed By: #### D DAVIDSON, MG, PHOS, CMP, LIPID, URIC #### [facility] [address] [address] [address] Sarmad Patino RBC 4.93 106/ul Normal 4.20-5.40 [facility] Comment on above: Performed By: #### D DAVIDSON, MG, PHOS, CMP, LIPID, URIC #### [facility] [address] [address] [address] Sarmad Patino RDW 13.9 % Normal 11.0-15.0 [facility] Comment on above: Performed By: #### D DAVIDSON, MG, PHOS, CMP, LIPID, URIC #### [facility] [address] [address] [address] Sarmad Patino SEG # 10.78 103/ul Critically high 1.40-6.[address] [facility] Comment on above: Performed By: #### D DAVIDSON, MG, PHOS, CMP, LIPID, URIC #### [facility] [address] [place] [address] Dr. Sarmad Patino SEG % 77.0 % Critically high 43.0-75.0 The [facility] Comment on above: Performed By: #### D DAVIDSON, MG, PHOS, CMP, LIPID, URIC #### [facility] [address] [address] [address] Sarmad Patino WBC 14.0 103/ul Critically high 4.0-11.0 [facility] Comment on above: Performed By: #### D DAVIDSON, MG, PHOS, CMP, LIPID, URIC #### [facility] [address] [address] [address] NECK ST W [...] middle ear cavities clear. Skull base intact. Waste Chopper spaces normal. Parotid glands normal. Submandibular glands [...] F HOPPER Date: 2022-01-03 10:40 Normal The [facility]on SARS-CoV-2 (COVID-19) RNA MURALI+probe Ql (Unsp spec) Detected Critically abnormal NOT DETECTED The [facility] Comment on above: Result Comment: This test is not yet approved or cleared by the [place] FDA. When there are no FDA-approved or cleared tests available, and other criteria are met, FDA can make tests available under an emergency access mechanism called an Emergency Use Authorization (EUA). The EUA for this test is supported by the [place] of Health and Human Service's declaration that [...] DAVIDSON, MG, PHOS, CMP, LIPID, URIC #### [facility] [address] [place] [address] Dr. Sarmad Patino GROUP A STREP CULTUREon S. pyogenes Ag Ql (Unsp spec) Culture Observations: Negative for Group A Streptococcus Normal The [facility] Comment on above: Performed By: #### U JUVE, LIPID, MG, CMP, DBIL, PHOS #### [facility] [address] [address] [address] Sarmad Patino INFLUENZA A AND B AGon 01-03 INFLUENZA A AG Negative Normal NEGATIVE SEE COMMENT The [facility] Comment on above: Performed By: #### D DAVIDSON, MG, PHOS, CMP, LIPID, URIC #### [facility] [address] [place] [address] Dr. Sarmad Patino INFLUENZA B AG Negative Normal NEGATIVE SEE COMMENT The [facility] Comment on above: Performed By: #### D DAVIDSON, MG, PHOS, CMP, LIPID, URIC #### [facility] [address] [address] [address] Sarmad Patino INTERNAL CONTROLS Within Normal Limits Normal Wi thin Normal Limits The [facility] Comment on above: Performed By: #### D DAVIDSON, MG, PHOS, CMP, LIPID, URIC #### [facility] [address] [place] [address] Dr. Sarmad Patino PROF 14(COMP METB)on 022 Albumin [Mass/Vol] 2.5 g/dL Critically low 3.4-5.0 Th e [facility] Comment on above: Performed By: #### U JUVE, LIPID, MG, CMP, DBIL, PHOS #### [facility] [address] [address] [address] Sarmad Patino Albumin/Globulin [Mass ratio] 0.5 {ratio} Normal [facility] Comment on above: Performed By: #### U JUVE, LIPID, MG, CMP, DBIL, PHOS #### [facility] [address] [address] [address] Sarmad Patino ALP [Catalytic activity/Vol] 185 U/L Critically high 46-116 [facility] Comment on above: Performed By: #### U JUVE, LIPID, MG, CMP, DBIL, PHOS #### [facility] [address] [place] [address] Dr. Sarmad Patino ALT [Catalytic activity/Vol] 108 U/L Critically high 14-59 [facility] Comment on above: Performed By: #### U JUVE, LIPID, MG, CMP, DBIL, PHOS #### [facility] [address] [place] [address] Dr. Sarmad Patino Anion gap [Moles/Vol] 8.3 mmol/L Normal [facility] Comment on above: Performed By: #### U JUVE, LIPID, MG, CMP, DBIL, PHOS #### [facility] [address] [place] [address] Dr. Sarmad Patino AST [Catalytic activity/Vol] 59 U/L Critically high 15-37 [facility] Comment on above: Performed By: #### U JUVE, LIPID, MG, CMP, DBIL, PHOS #### [facility] [address] [place] [address] Dr. Sarmad Patino Bilirubin [Mass/Vol] 0.6 mg/dL Normal 0.2-1.0 [facility] Comment on above: Performed By: #### U JUVE, LIPID, MG, CMP, DBIL, PHOS #### [facility] [address] [place] [address] Dr. Sarmad Patino Calcium [Mass/Vol] 9.0 mg/dL Normal 8.5-10.1 [facility] Comment on above: Performed By: #### U JUVE, LIPID, MG, CMP, DBIL, PHOS #### [facility] [address] [address] [address] Sarmad Patino Chloride [Moles/Vol] 100 mmol/L Normal 98-107 [facility] Comment on above: Performed By: #### U JUVE, LIPID, MG, CMP, DBIL, PHOS #### [facility] [address] [address] [address] Sarmad Patino CO2 [Moles/Vol] 29.0 mmol/L Normal 21.0-32.0 [facility] Comment on above: Performed By: #### U JUVE, LIPID, MG, CMP, DBIL, PHOS #### [facility] [address] [place] [address] Dr. Sarmad Patino Creatinine [Mass/Vol] 1.05 mg/dL Critically high 0.55-1.02 [facility] Comment on above: Performed By: #### U JUVE, LIPID, MG, CMP, DBIL, PHOS #### [facility] [address] [place] [address] Dr. Sarmad Patino EGFR-AF MOZAMBICAN >60 Normal >=60 [facility] Comment on above: Performed By: #### U JUVE, LIPID, MG, CMP, DBIL, PHOS #### [facility] [address] [place] [address] Dr. Sarmad Patino EGFR-NON AF MOZAMBICAN 53 mL/min/1.73m2 Critically low >=60 [facility] Comment on above: Performed By: #### U JUVE, LIPID, MG, CMP, DBIL, PHOS #### [facility] [address] [address] [address] Sarmad Patino Globulin (S) [Mass/Vol] 4.6 g/dL Normal [facility] Comment on above: Performed By: #### U JUVE, LIPID, MG, CMP, DBIL, PHOS #### [facility] [address] [address] [address] Sarmad Patino Glucose [Mass/Vol] 154 mg/dL Critically high 74-106 [facility] Comment on above: Performed By: #### U JUVE, LIPID, MG, CMP, DBIL, PHOS #### [facility] [address] [address] [address] Sarmad Patino Potassium [Moles/Vol] 3.3 mmol/L Critically low 3.5-5.1 [facility] Comment on above: Performed By: #### U JUVE, LIPID, MG, CMP, DBIL, PHOS #### [facility] [address] [address] [address] Sarmad Patino Protein [Mass/Vol] 7.1 g/dL Normal 6.4-8.2 [facility] Comment on above: Performed By: #### U JUVE, LIPID, MG, CMP, DBIL, PHOS #### [facility] [address] [place] [address] Dr. Sarmad Patino Sodium [Moles/Vol] 134 mmol/L Critically low 136-145 [facility] Comment on above: Performed By: #### U JUVE, LIPID, MG, CMP, DBIL, PHOS #### [facility] [address] [address] [address] Sarmad Patino Urea nitrogen [Mass/Vol] 24.0 mg/dL Critically high 7.0-18.0 [facility] Comment on above: Performed By: #### U JUVE, LIPID, MG, CMP, DBIL, PHOS #### [facility] [address] [address] [address] Sarmad Patino Urea nitrogen/Creatinine [Mass ratio] 22.9 mg/mg Normal [facility] Comment on above: Performed By: #### U JUVE, LIPID, MG, CMP, DBIL, PHOS #### [facility] [address] [address] [address] Sarmad Patino STREPT SCREENon 01-03-2022 STREP SCREEN A Negative Normal NEGATIVE [facility] Comment on above: Performed By: #### U JUVE, LIPID, MG, CMP, DBIL, PHOS #### [facility] [address] [place] [address] Dr. Sarmad Patino XR CHEST 2 Von [...] MAYRA WHITESIDE Date: 2022-01-03 03:54 Normal The [facility] Quick Strepon 12-28-2021 S. pyogenes Org specific cx Ql (Throat) Negative [employer] Other Quick Strep [employer] Other SARS-CoV-2 (COVID-19) RNA NA A+probe Ql (Resp)on 12-25-2021 SARS-CoV-2 (COVID-19) RNA MURALI+probe Ql (Unsp spec) Negative [employer] Other FK506 (TACROLIMUS) WHOLE BLO ODon 12-08-2021 Tacrolimus (FK506), Blood 6.6 ng/mL Normal 2.0-20.0 [facility] Comment on above: Result Comment: Trou gh (immediately following transplant) 15.0 . Trough (steady state, 2 weeks or more after transplant): 3.0 - 8.0 . Performed by LC-MS/MS technology. Performed By: #### D DAVIDSON, MG, PHOS, CMP, LIPID, URIC #### [facility] [address] [place] [address] Dr. Sarmad Patino RAPAMUNE(SIROLIMUS)on 2021 Rapamune(Sirolimus), whole blood 9.6 ng/mL Normal 3.0-20.0 [facility] Comment on above: Result Comment: Perf ormed by LC/MS-MS technology . This test was developed and its performance characteristics determined by [facility]. It has not been cleared or approved by the Food and Drug Administration. Performed By: #### D DAVIDSON, MG, PHOS, CMP, LIPID, URIC #### [facility] [address] [address] [address] Sarmad Patino BILIRUBIN CONJUGATED (DIRECT )on 12-05-2021 BILI, CONJUGATED 0.1 mg/dL Normal 0.0-0.2 [facility] Comment on above: Performed By: #### D DAVIDSON, MG, PHOS, CMP, LIPID, URIC #### [facility] [address] [address] [address] Sarmad Patino CBC W MANUAL DIFFon 12-06-19 22 ATYPICAL LYMPH # Normal [facility] Comment on above: Performed By: #### D DAVIDSON, MG, PHOS, CMP, LIPID, URIC #### [facility] [address] [place] [address] Dr. Sarmad Patino ATYPICAL LYMPH % Normal [facility] Comment on above: Performed By: #### D DAVIDSON, MG, PHOS, CMP, LIPID, URIC #### [facility] [address] [place] [address] Dr. Sarmad Patino BAND # Normal 0.0-0.3 The [facility] Comment on above: Performed By: #### D DAVIDSON, MG, PHOS, CMP, LIPID, URIC #### [facility] [address] [place] [address] Dr. Sarmad Patino BAND % Normal 0-5 The [facility] Comment on above: Performed By: #### D DAVIDSON, MG, PHOS, CMP, LIPID, URIC #### [facility] [address] [address] [address] Sarmad Patino BASOM # 0.00 103/ul Normal 0.00-0.10 [facility] Comment on above: Performed By: #### D DAVIDSON, MG, PHOS, CMP, LIPID, URIC #### [facility] [address] [place] [address] Dr. Sarmad Patino BASOM % 0.0 % Critically low 0.2-2.0 [facility] Comment on above: Performed By: #### D DAVIDSON, MG, PHOS, CMP, LIPID, URIC #### [facility] [address] [address] [address] Sarmad Patino BLAST # Normal [facility] Comment on above: Performed By: #### D DAVIDSON, MG, PHOS, CMP, LIPID, URIC #### [facility] [address] [address] [address] Sarmad Patino BLAST % Normal [facility] Comment on above: Performed By: #### D DAVIDSON, MG, PHOS, CMP, LIPID, URIC #### [facility] [address] [address] [address] Sarmad Patino CORRECTED WBC Normal 4.0-11.0 [facility] Comment on above: Performed By: #### D DAVIDSON, MG, PHOS, CMP, LIPID, URIC #### [facility] [address] [place] [address] Dr. Sarmad Patino EOS # 0.15 103/ul Normal 0.00-0.70 [facility] Comment on above: Performed By: #### D DAVIDSON, MG, PHOS, CMP, LIPID, URIC #### [facility] [address] [address] [address] Sarmad Patino EOS% 2.0 % Normal 0.9-7.0 [facility] Comment on above: Performed By: #### D DAVIDSON, MG, PHOS, CMP, LIPID, URIC #### [facility] [address] [address] [address] Sarmad Patino HCT 47.5 % Normal 36.0-48.0 [facility] Comment on above: Performed By: #### D DAVIDSON, MG, PHOS, CMP, LIPID, URIC #### [facility] [address] [address] [address] Sarmad Patino HGB 15.6 g/dl Normal 12.0-16.0 [facility] Comment on above: Performed By: #### D DAVIDSON, MG, PHOS, CMP, LIPID, URIC #### [facility] [address] [place] [address] Dr. Sarmad Patino LYMPHM # 1.46 103/ul Normal 1.20-3.80 [facility] Comment on above: Performed By: #### D DAVIDSON, MG, PHOS, CMP, LIPID, URIC #### [facility] [address] [place] [address] Dr. Sarmad Patino LYMPHM% 19.0 % Critically low 20.5-60.0 [facility] Comment on above: Performed By: #### D DAVIDSON, MG, PHOS, CMP, LIPID, URIC #### [facility] [address] [place] [address] Dr. Sarmad Patino MCH 28.9 pg Normal 26.7-34.0 [facility] Comment on above: Performed By: #### D DAVIDSON, MG, PHOS, CMP, LIPID, URIC #### [facility] [address] [place] [address] Dr. Sarmad Patino MCHC 32.8 g/dl Normal 29.9-35.2 [facility] Comment on above: Performed By: #### D DAVIDSON, MG, PHOS, CMP, LIPID, URIC #### [facility] [address] [place] [address] Dr. Sarmad Patino MCV 88.1 fL Normal 81.0-99.0 [facility] Comment on above: Performed By: #### D DAVIDSON, MG, PHOS, CMP, LIPID, URIC #### [facility] [address] [place] [address] Dr. Sarmad Patino METAMYELOCYTE # Normal [facility] Comment on above: Performed By: #### D DAVIDSON, MG, PHOS, CMP, LIPID, URIC #### [facility] [address] [place] [address] Dr. Sarmad Patino METAMYELOCYTE % Normal [facility] Comment on above: Performed By: #### D DAVIDSON, MG, PHOS, CMP, LIPID, URIC #### [facility] [address] [place] [address] Dr. Sarmad Patino MONOM# 0.85 103/ul Critically high 0.30-0.80 [facility] Comment on above: Performed By: #### D DAVIDSON, MG, PHOS, CMP, LIPID, URIC #### [facility] [address] [address] [address] Sarmad Patino MONOM% 11.0 % Normal 1.7-12.0 [facility] Comment on above: Performed By: #### D DAVIDSON, MG, PHOS, CMP, LIPID, URIC #### [facility] [address] [address] [address] Sarmad Patino MPV 11.3 fL Normal 9.5-13.5 [facility] Comment on above: Performed By: #### D DAVIDSON, MG, PHOS, CMP, LIPID, URIC #### [facility] [address] [address] [address] Sarmad Patino MYELOCYTE # Normal [facility] Comment on above: Performed By: #### D DAVIDSON, MG, PHOS, CMP, LIPID, URIC #### [facility] [address] [address] [address] Sarmad Patino MYELOCYTE % Normal [facility] Comment on above: Performed By: #### D DAVIDSON, MG, PHOS, CMP, LIPID, URIC #### [facility] [address] [place] [address] Dr. Sarmad Patino NRBC Normal [facility] Comment on above: Performed By: #### D DAVIDSON, MG, PHOS, CMP, LIPID, URIC #### [facility] [address] [address] [address] Sarmad Patino PLT 214 103/ul Normal 150-450 [facility] Comment on above: Performed By: #### D DAVIDSON, MG, PHOS, CMP, LIPID, URIC #### [facility] [address] [address] [address] Sarmad Patino RBC 5.39 106/ul Normal 4.20-5.40 [facility] Comment on above: Performed By: #### D DAVIDSON, MG, PHOS, CMP, LIPID, URIC #### [facility] [address] [address] [address] Sarmad Patino RDW 13.8 % Normal 11.0-15.0 [facility] Comment on above: Performed By: #### D DAVIDSON, MG, PHOS, CMP, LIPID, URIC #### [facility] [address] [address] [address] Sarmad Patino SEG # 5.24 103/ul Normal 1.40-6.50 [facility] Comment on above: Performed By: #### D DAVIDSON, MG, PHOS, CMP, LIPID, URIC #### [facility] [address] [address] [address] Sarmad Patino SEG % 68.0 % Normal 43.0-75.0 [facility] Comment on above: Performed By: #### D DAVIDSON, MG, PHOS, CMP, LIPID, URIC #### [facility] [address] [place] [address] Dr. Sarmad Patino WBC 7.7 103/ul Normal 4.0-11.0 [facility] Comment on above: Performed By: #### D DAVIDSON, MG, PHOS, CMP, LIPID, URIC #### [facility] [address] [place] [address] Dr. Sarmad Patino LIPID PROFILEon 12-05-2021 CHOL-HDL RATIO NORM SEE BELOW Normal [facility] Comment on above: Result Comment: 3.3 - 4.4 LOW RISK 4.4 - 7.1 AVERAGE RISK 7.1 - 11.0 MODERATE RISK >11.0 HIGH RISK Performed By: #### D DAVIDSON, MG, PHOS, CMP, LIPID, URIC #### [facility] [address] [place] [address] Dr. Sarmad Patino Cholesterol [Mass/Vol] 170 mg/dL Normal <=200 [facility] Comment on above: Performed By: #### D DAVIDSON, MG, PHOS, CMP, LIPID, URIC #### [facility] [address] [address] [address] Sarmad Patino Cholesterol in HDL [Mass/Vol] 54 mg/dL Normal 40-60 [facility] Comment on above: Performed By: #### D DAVIDSON, MG, PHOS, CMP, LIPID, URIC #### [facility] [address] [place] [address] Dr. Sarmad Patino Cholesterol in LDL [Mass/Vol] 92.2 mg/dL Normal [facility] Comment on above: Performed By: #### D DAVIDSON, MG, PHOS, CMP, LIPID, URIC #### [facility] [address] [address] [address] Sarmad Patino Cholesterol.total/Cho lesterol in HDL [Mass ratio] 3.1 {ratio} Normal [facility] Comment on above: Performed By: #### D DAVIDSON, MG, PHOS, CMP, LIPID, URIC #### [facility] [address] [address] [address] Sarmad Patino HDL NORMAL > or = 60 mg/dl - LO W CARDIOVASCULAR RISK <40 mg/dl - HIGH CARDIOVASCULAR RISK Normal [facility] Comment on above: Performed By: #### D DAVIDSON, MG, PHOS, CMP, LIPID, URIC #### [facility] [address] [address] [address] Sarmad Patino LDL CALC NORMAL SEE BELOW Normal [facility] Comment on above: Result Comment: <100 mg/dl OPTIMAL 100 - 129 mg/dl NEAR OR ABOVE OPTIMAL 130 - 159 mg/dl BORDERLINE HIGH 160 - 189 mg/dl HIGH >190 mg/dl VERY HIGH Performed By: #### D DAVIDSON, MG, PHOS, CMP, LIPID, URIC #### [facility] [address] [address] [address] Sarmad Patino Triglyceride [Mass/Vol] 119 mg/dL Normal <=150 [facility] Comment on above: Performed By: #### D DAVIDSON, MG, PHOS, CMP, LIPID, URIC #### [facility] [address] [address] [address] Sarmad Patino VLDL CALC 23.8 mg/dL Normal [facility] Comment on above: Performed By: #### D DAVIDSON, MG, PHOS, CMP, LIPID, URIC #### [facility] [address] [address] [address] Sarmad Patino MAGNESIUMon 12-05-2021 Magnesium [Mass/Vol] 1.8 mg/dL Normal 1.8-2.4 [facility] Comment on above: Performed By: #### D DAVIDSON, MG, PHOS, CMP, LIPID, URIC #### [facility] [address] [place] [address] Dr. Sarmad Patino PHOSPHORUSon 12-05-2021 Phosphate [Mass/Vol] 3.8 mg/dL Normal 2.6-4.7 [facility] Comment on above: Performed By: #### D DAVIDSON, MG, PHOS, CMP, LIPID, URIC #### [facility] [address] [place] [address] Dr. Sarmad Patino PROF 14(COMP METB)on 022 Albumin [Mass/Vol] 3.7 g/dL Normal 3.4-5.0 [facility] Comment on above: Performed By: #### D DAVIDSON, MG, PHOS, CMP, LIPID, URIC #### [facility] [address] [place] [address] Dr. Sarmad Patino Albumin/Globulin [Mass ratio] 1.0 {ratio} Normal [facility] Comment on above: Performed By: #### D DAVIDSON, MG, PHOS, CMP, LIPID, URIC #### [facility] [address] [place] [address] Dr. Sarmad Patino ALP [Catalytic activity/Vol] 151 U/L Critically high 46-116 [facility] Comment on above: Performed By: #### D DAVIDSON, MG, PHOS, CMP, LIPID, URIC #### [facility] [facility] [address] [place] [address] Dr. Sarmad Patino ALT [Catalytic activity/Vol] 27 U/L Normal 14-59 [facility] Comment on above: Performed By: #### D DAVIDSON, MG, PHOS, CMP, LIPID, URIC #### [facility] [address] [place] [address] Dr. Sarmad Patino Anion gap [Moles/Vol] 14.5 mmol/L Normal [facility] Comment on above: Performed By: #### D DAVIDSON, MG, PHOS, CMP, LIPID, URIC #### [facility] [address] [place] [address] Dr. Sarmad Patino AST [Catalytic activity/Vol] 25 U/L Normal 15-37 [facility] Comment on above: Performed By: #### D DAVIDSON, MG, PHOS, CMP, LIPID, URIC #### [facility] [address] [address] [address] Sarmad Patino Bilirubin [Mass/Vol] 0.4 mg/dL Normal 0.2-1.0 [facility] Comment on above: Performed By: #### D DAVIDSON, MG, PHOS, CMP, LIPID, URIC #### [facility] [address] [address] [address] Sarmad Patino Calcium [Mass/Vol] 9.4 mg/dL Normal 8.5-10.1 [facility] Comment on above: Performed By: #### D DAVIDSON, MG, PHOS, CMP, LIPID, URIC #### [facility] [address] [place] [address] Dr. Sarmad Patino Chloride [Moles/Vol] 103 mmol/L Normal 98-107 [facility] Comment on above: Performed By: #### D DAVIDSON, MG, PHOS, CMP, LIPID, URIC #### [facility] [address] [place] [address] Dr. Sarmad Patino CO2 [Moles/Vol] 26.5 mmol/L Normal 21.0-32.0 [facility] Comment on above: Performed By: #### D DAVIDSON, MG, PHOS, CMP, LIPID, URIC #### [facility] [address] [place] [address] Dr. Sarmad Patino Creatinine [Mass/Vol] 0.87 mg/dL Normal 0.55-1.02 [facility] Comment on above: Performed By: #### D DAVIDSON, MG, PHOS, CMP, LIPID, URIC #### [facility] [address] [address] [address] Sarmad Patino EGFR-AF MOZAMBICAN >60 Normal >=60 [facility] Comment on above: Performed By: #### D DAVIDSON, MG, PHOS, CMP, LIPID, URIC #### [facility] [address] [place] [address] Dr. Sarmad Patino EGFR-NON AF MOZAMBICAN >60 Normal >=60 [facility] Comment on above: Performed By: #### D DAVIDSON, MG, PHOS, CMP, LIPID, URIC #### [facility] [address] [address] [address] Sarmad Patino Globulin (S) [Mass/Vol] 3.8 g/dL Normal [facility] Comment on above: Performed By: #### D DAVIDSON, MG, PHOS, CMP, LIPID, URIC #### [facility] [address] [place] [address] Dr. Sarmad Patino Glucose [Mass/Vol] 104 mg/dL Normal 74-106 [facility] Comment on above: Performed By: #### D DAVIDSON, MG, PHOS, CMP, LIPID, URIC #### [facility] [address] [place] [address] Dr. Sarmad Patino Potassium [Moles/Vol] 4.0 mmol/L Normal 3.5-5.1 [facility] Comment on above: Performed By: #### D DAVIDSON, MG, PHOS, CMP, LIPID, URIC #### [facility] [address] [place] [address] Dr. Sarmad Patino Protein [Mass/Vol] 7.5 g/dL Normal 6.4-8.2 [facility] Comment on above: Performed By: #### D DAVIDSON, MG, PHOS, CMP, LIPID, URIC #### [facility] [address] [place] [address] Dr. Sarmad Patino Sodium [Moles/Vol] 140 mmol/L Normal 136-145 [facility] Comment on above: Performed By: #### D DAVIDSON, MG, PHOS, CMP, LIPID, URIC #### [facility] [address] [place] [address] Dr. Sarmad Patino Urea nitrogen [Mass/Vol] 19.0 mg/dL Critically high 7.0-18.0 [facility] Comment on above: Performed By: #### D DAVIDSON, MG, PHOS, CMP, LIPID, URIC #### [facility] [address] [place] [address] Dr. Sarmad Patino Urea nitrogen/Creatinine [Mass ratio] 21.8 mg/mg Normal [facility] Comment on above: Performed By: #### D DAVIDSON, MG, PHOS, CMP, LIPID, URIC #### [facility] [address] [address] [address] Sarmad Patino URIC ACID SERUMon 12-05-2021 Urate [Mass/Vol] 5.2 mg/dL Normal 2.6-6.0 [facility] Comment on above: Performed By: #### D DAVIDSON, MG, PHOS, CMP, LIPID, URIC #### [facility] [address] [address] [address] Sarmad Patino EVEROLIMU, WHOLE BLOODon EVEROLIMUS 7.0 ng/mL Normal 3.0-8.0 [facility] Comment on above: Result Comment: Perf ormed by LC-MS/MS technology. Performed By: #### D DAVIDSON, MG, PHOS, CMP, LIPID, URIC #### [facility] [address] [address] [address] Sarmad Patino FK506 (TACROLIMUS) WHOLE BLO ODon 11-10-2021 Tacrolimus (FK506), Blood 6.4 ng/mL Normal 2.0-20.0 [facility] Comment on above: Result Comment: Trou gh (immediately following transplant) 15.0 . Trough (steady state, 2 weeks or more after transplant): 3.0 - 8.0 . Performed by LC-MS/MS technology. Performed By: #### D DAVIDSON, MG, PHOS, CMP, LIPID, URIC #### [facility] [address] [place] [address] Dr. Sarmad Patino BK VIRUS PCR QUANTon 022 BKV DNA QUANT PCR PLASMA Negative Normal Negative [facility] Comment on above: Result Comment: No B K DNA detected. . The linear range of the assay is 22 - 100,000,000 IU/mL. Performed By: #### U JUVE, LIPID, MG, CMP, DBIL, PHOS #### [facility] [address] [address] [address] Sarmad Patino Log10 BKV DNA Plasma Normal [facility] Comment on above: Performed By: #### U JUVE, LIPID, MG, CMP, DBIL, PHOS #### [facility] [address] [address] [address] Sarmad Patino BILIRUBIN CONJUGATED (DIRECT )on 11-07-2021 BILI, CONJUGATED 0.1 mg/dL Normal 0.0-0.2 [facility] Comment on above: Performed By: #### D DAVIDSON, MG, PHOS, CMP, LIPID, URIC #### [facility] [address] [place] [address] Dr. Sarmad Patino CBC AUTO DIFFon 11-07-2021 BASO # 0.0 103/ul Normal 0.0-0.1 [facility] Comment on above: Performed By: #### D DAVIDSON, MG, PHOS, CMP, LIPID, URIC #### [facility] [address] [place] [address] Dr. Sarmad Patino Basophils/100 WBC (Bld) 0.3 % Normal 0.2-2.0 [facility] Comment on above: Performed By: #### D DAVIDSON, MG, PHOS, CMP, LIPID, URIC #### [facility] [address] [place] [address] Dr. Sramad Patino EO # 0.1 103/ul Normal 0.0-0.7 [facility] Comment on above: Performed By: #### D DAVIDSON, MG, PHOS, CMP, LIPID, URIC #### [facility] [address] [place] [address] Dr. Sarmad Patino Eosinophils/100 WBC (Bld) 2.1 % Normal 0.9-7.0 [facility] Comment on above: Performed By: #### D DAVIDSON, MG, PHOS, CMP, LIPID, URIC #### [facility] [address] [place] [address] Dr. Sarmad Patino Erythrocyte distribution width (RBC) [Ratio] 13.5 % Normal 11.0-15.0 [facility] Comment on above: Performed By: #### D DAVIDSON, MG, PHOS, CMP, LIPID, URIC #### [facility] [address] [place] [address] Dr. Sarmad Patino Hematocrit (Bld) [Volume fraction] 46.7 % Normal 36.0-48.0 [facility] Comment on above: Performed By: #### D DAVIDSON, MG, PHOS, CMP, LIPID, URIC #### [facility] [address] [place] [address] Dr. Sarmad Patino Hemoglobin (Bld) [Mass/Vol] 15.1 g/dL Normal 12.0-16.0 [facility] Comment on above: Performed By: #### D DAVIDSON, MG, PHOS, CMP, LIPID, URIC #### [facility] [address] [address] [address] Sarmad Patino IG # 0.03 10e3/ul Normal 0.00-0.03 [facility] Comment on above: Performed By: #### D DAVIDSON, MG, PHOS, CMP, LIPID, URIC #### [facility] [address] [place] [address] Dr. Sarmad Patino IG % 0.5 % Normal 0.0-0.5 [facility] Comment on above: Performed By: #### D DAVIDSON, MG, PHOS, CMP, LIPID, URIC #### [facility] [address] [place] [address] Dr. Sarmad Patino LYMPH # 1.3 103/ul Normal 1.2-3.8 [facility] Comment on above: Performed By: #### D DAVIDSON, MG, PHOS, CMP, LIPID, URIC #### [facility] [address] [place] [address] Dr. Sarmad Patino Lymphocytes/100 WBC (Bld) 19.9 % Critically low 20.5-60.0 [facility] Comment on above: Performed By: #### D DAVIDSON, MG, PHOS, CMP, LIPID, URIC #### [facility] [address] [address] [address] Sarmad Patino MANUAL DIFF REQ NO Normal [facility] Comment on above: Performed By: #### D DAVIDSON, MG, PHOS, CMP, LIPID, URIC #### [facility] [address] [place] [address] Dr. Sarmad Patino MCH (RBC) [Entitic mass] 28.6 pg Normal 26.7-34.0 [facility] Comment on above: Performed By: #### D DAVIDSON, MG, PHOS, CMP, LIPID, URIC #### [facility] [address] [place] [address] Dr. Sarmad Patino MCHC (RBC) [Mass/Vol] 32.3 g/dL Normal 29.9-35.2 [facility] Comment on above: Performed By: #### D DAVIDSON, MG, PHOS, CMP, LIPID, URIC #### [facility] [address] [place] [address] Dr. Sarmad Patino MCV (RBC) [Entitic vol] 88.4 fL Normal 81.0-99.0 [facility] Comment on above: Performed By: #### D DAVIDSON, MG, PHOS, CMP, LIPID, URIC #### [facility] [address] [place] [address] Dr. Sarmad Patino MONO # 0.8 103/ul Normal 0.3-0.8 The [facility] Comment on above: Performed By: #### D DAVIDSON, MG, PHOS, CMP, LIPID, URIC #### [facility] [address] [place] [address] Dr. Sarmad Patino Monocytes/100 WBC (Bld) 12.9 % Critically high 1.7-12.0 [facility] Comment on above: Performed By: #### D DAVIDSON, MG, PHOS, CMP, LIPID, URIC #### [facility] [address] [place] [address] Dr. Sarmad Patnio NEUT # 4.0 103/ul Normal 1.4-6.5 The [facility] Comment on above: Performed By: #### D DAVIDSON, MG, PHOS, CMP, LIPID, URIC #### [facility] [address] [place] [address] Dr. Sarmad Patino Neutrophils/100 WBC (Bld) 64.3 % Normal 43.0-75.0 The [facility] Comment on above: Performed By: #### D DAVIDSON, MG, PHOS, CMP, LIPID, URIC #### [facility] [address] [place] [address] Dr. Sarmad Patino Platelet mean volume (Bld) [Entitic vol] 11.3 fL Normal 9.5-13.5 [facility] Comment on above: Performed By: #### D DAVIDSON, MG, PHOS, CMP, LIPID, URIC #### [facility] [address] [place] [address] Dr. Sarmad Patino PLT 241 103/ul Normal 150-450 [facility] Comment on above: Performed By: #### D DAVIDSON, MG, PHOS, CMP, LIPID, URIC #### [facility] [address] [place] [address] Dr. Sarmad Patino RBC 5.28 106/ul Normal 4.20-5.40 The [facility] Comment on above: Performed By: #### D DAVIDSON, MG, PHOS, CMP, LIPID, URIC #### [facility] [address] [place] [address] Dr. Sarmad Patino WBC 6.3 103/ul Normal 4.0-11.0 [facility] Comment on above: Performed By: #### D DAVIDSON, MG, PHOS, CMP, LIPID, URIC #### [facility] [address] [place] [address] Dr. Sarmad Patino GLYCOHEMOGLOBIN A1Con 2021 ADA RECOMMENDATION SEE BELOW Normal [facility] Comment on above: Result Comment: ADA RECOMMENDED LIMIT 4.0 - 6.0 ADA THERAPEUTIC TARGET < 7.0 ACTION SUGGESTED > 7.0 Performed By: #### D DAVIDSON, MG, PHOS, CMP, LIPID, URIC #### [facility] [address] [place] [address] Dr. Sarmad Patino Glucose [Mass/Vol] 120 mg/dL Normal [facility] Comment on above: Performed By: #### D DAVIDSON, MG, PHOS, CMP, LIPID, URIC #### [facility] [address] [place] [address] Dr. Sarmad Patino HbA1c (Bld) [Mass fraction] 5.8 % Normal 4.5-6.2 [facility] Comment on above: Performed By: #### D DAVIDSON, MG, PHOS, CMP, LIPID, URIC #### [facility] [address] [address] [address] Sarmad Patino LIPID PROFILEon 11-07-2021 CHOL-HDL RATIO NORM SEE BELOW Normal [facility] Comment on above: Result Comment: 3.3 - 4.4 LOW RISK 4.4 - 7.1 AVERAGE RISK 7.1 - 11.0 MODERATE RISK >11.0 HIGH RISK Performed By: #### D DAVIDSON, MG, PHOS, CMP, LIPID, URIC #### [facility] [address] [address] [address] Sarmad Patino Cholesterol [Mass/Vol] 157 mg/dL Normal <=200 [facility] Comment on above: Performed By: #### D DAVIDSON, MG, PHOS, CMP, LIPID, URIC #### [facility] [address] [address] [address] Sarmad Patino Cholesterol in HDL [Mass/Vol] 48 mg/dL Normal 40-60 [facility] Comment on above: Performed By: #### D DAVIDSON, MG, PHOS, CMP, LIPID, URIC #### [facility] [address] [address] [address] Sarmad Patino Cholesterol in LDL [Mass/Vol] 89.6 mg/dL Normal [facility] Comment on above: Performed By: #### D DAVIDSON, MG, PHOS, CMP, LIPID, URIC #### [facility] [address] [address] [address] Sarmad Patino Cholesterol.total/Cho lesterol in HDL [Mass ratio] 3.3 {ratio} Normal [facility] Comment on above: Performed By: #### D DAVIDSON, MG, PHOS, CMP, LIPID, URIC #### [facility] [address] [address] [address] Sarmad aPtino HDL NORMAL > or = 60 mg/dl - LO W CARDIOVASCULAR RISK <40 mg/dl - HIGH CARDIOVASCULAR RISK Normal [facility] Comment on above: Performed By: #### D DAVIDSON, MG, PHOS, CMP, LIPID, URIC #### [facility] [address] [address] [address] Sarmad Patino LDL CALC NORMAL SEE BELOW Normal [facility] Comment on above: Result Comment: <100 mg/dl OPTIMAL 100 - 129 mg/dl NEAR OR ABOVE OPTIMAL 130 - 159 mg/dl BORDERLINE HIGH 160 - 189 mg/dl HIGH >190 mg/dl VERY HIGH Performed By: #### D DAVIDSON, MG, PHOS, CMP, LIPID, URIC #### [facility] [address] [place] [address] Dr. Sarmad Patino Triglyceride [Mass/Vol] 97 mg/dL Normal <=150 [facility] Comment on above: Performed By: #### D DAVIDSON, MG, PHOS, CMP, LIPID, URIC #### [facility] [address] [address] [address] Sarmad Patino VLDL CALC 19.4 mg/dL Normal [facility] Comment on above: Performed By: #### D DAVIDSON, MG, PHOS, CMP, LIPID, URIC #### [facility] [address] [place] [address] Dr. Sarmad Patino MAGNESIUMon 11-07-2021 Magnesium [Mass/Vol] 1.9 mg/dL Normal 1.8-2.4 [facility] Comment on above: Performed By: #### D DAVIDSON, MG, PHOS, CMP, LIPID, URIC #### [facility] [address] [place] [address] Dr. Sarmad Patino PHOSPHORUSon 11-07-2021 Phosphate [Mass/Vol] 3.4 mg/dL Normal 2.6-4.7 [facility] Comment on above: Performed By: #### D DAVIDSON, MG, PHOS, CMP, LIPID, URIC #### [facility] [address] [place] [address] Dr. Sarmad Patino PROF 14(COMP METB)on 022 Albumin [Mass/Vol] 3.6 g/dL Normal 3.4-5.0 [facility] Comment on above: Performed By: #### D DAVIDSON, MG, PHOS, CMP, LIPID, URIC #### [facility] [address] [place] [address] Dr. Sarmad Patino Albumin/Globulin [Mass ratio] 0.9 {ratio} Normal [facility] Comment on above: Performed By: #### D DAVIDSON, MG, PHOS, CMP, LIPID, URIC #### [facility] [address] [address] [address] Sarmad Patino ALP [Catalytic activity/Vol] 158 U/L Critically high 46-116 [facility] Comment on above: Performed By: #### D DAVIDSON, MG, PHOS, CMP, LIPID, URIC #### [facility] [address] [place] [address] Dr. Sarmad Patino ALT [Catalytic activity/Vol] 23 U/L Normal 14-59 [facility] Comment on above: Performed By: #### D DAVIDSON, MG, PHOS, CMP, LIPID, URIC #### [facility] [address] [address] [address] Sarmad Patino Anion gap [Moles/Vol] 14.8 mmol/L Normal Th e [facility] Comment on above: Performed By: #### D DAVIDSON, MG, PHOS, CMP, LIPID, URIC #### [facility] [address] [place] [address] Dr. Sarmad Patino AST [Catalytic activity/Vol] 18 U/L Normal 15-37 [facility] Comment on above: Performed By: #### D DAVIDSON, MG, PHOS, CMP, LIPID, URIC #### [facility] [address] [place] [address] Dr. Sarmad Patino Bilirubin [Mass/Vol] 0.4 mg/dL Normal 0.2-1.0 [facility] Comment on above: Performed By: #### D DAVIDSON, MG, PHOS, CMP, LIPID, URIC #### [facility] [address] [place] [address] Dr. Sarmad Patino Calcium [Mass/Vol] 9.3 mg/dL Normal 8.5-10.1 [facility] Comment on above: Performed By: #### D DAVIDSON, MG, PHOS, CMP, LIPID, URIC #### [facility] [address] [place] [address] Dr. Sarmad Patino Chloride [Moles/Vol] 105 mmol/L Normal 98-107 [facility] Comment on above: Performed By: #### D DAVIDSON, MG, PHOS, CMP, LIPID, URIC #### [facility] [address] [address] [address] Sarmad Patino CO2 [Moles/Vol] 26.1 mmol/L Normal 21.0-32.0 [facility] Comment on above: Performed By: #### D DAVIDSON, MG, PHOS, CMP, LIPID, URIC #### [facility] [address] [place] [address] Dr. Sarmad Patino Creatinine [Mass/Vol] 0.84 mg/dL Normal 0.55-1.02 [facility] Comment on above: Performed By: #### D DAVIDSON, MG, PHOS, CMP, LIPID, URIC #### [facility] [address] [place] [address] Dr. Sarmad Patino EGFR-AF MOZAMBICAN >60 Normal >=60 [facility] Comment on above: Performed By: #### D DAVIDSON, MG, PHOS, CMP, LIPID, URIC #### [facility] [address] [place] [address] Dr. Sarmad Patino EGFR-NON AF MOZAMBICAN >60 Normal >=60 [facility] Comment on above: Performed By: #### D DAVIDSON, MG, PHOS, CMP, LIPID, URIC #### [facility] [address] [place] [address] Dr. Sarmad Patino Globulin (S) [Mass/Vol] 3.8 g/dL Normal [facility] Comment on above: Performed By: #### D DAVIDSON, MG, PHOS, CMP, LIPID, URIC #### [facility] [address] [place] [address] Dr. Sarmad Patino Glucose [Mass/Vol] 97 mg/dL Normal 74-106 [facility] Comment on above: Performed By: #### D DAVIDSON, MG, PHOS, CMP, LIPID, URIC #### [facility] [address] [place] [address] Dr. Sarmad Patino Potassium [Moles/Vol] 3.9 mmol/L Normal 3.5-5.1 [facility] Comment on above: Performed By: #### D DAVIDSON, MG, PHOS, CMP, LIPID, URIC #### [facility] [address] [place] [address] Dr. Sarmad Patino Protein [Mass/Vol] 7.4 g/dL Normal 6.4-8.2 [facility] Comment on above: Performed By: #### D DAVIDSON, MG, PHOS, CMP, LIPID, URIC #### [facility] [address] [place] [address] Dr. Sarmad Patino Sodium [Moles/Vol] 142 mmol/L Normal 136-145 [facility] Comment on above: Performed By: #### D DAVIDSON, MG, PHOS, CMP, LIPID, URIC #### [facility] [address] [place] [address] Dr. Sarmad Patino Urea nitrogen [Mass/Vol] 21.0 mg/dL Critically high 7.0-18.0 [facility] Comment on above: Performed By: #### D DAVIDSON, MG, PHOS, CMP, LIPID, URIC #### [facility] [address] [place] [address] Dr. Sarmad Patino Urea nitrogen/Creatinine [Mass ratio] 25.0 mg/mg Normal [facility] Comment on above: Performed By: #### D DAVIDSON, MG, PHOS, CMP, LIPID, URIC #### [facility] [address] [place] [address] Dr. Sarmad Patino URIC ACID SERUMon 11-07-2021 Urate [Mass/Vol] 5.1 mg/dL Normal 2.6-6.0 [facility] Comment on above: Performed By: #### D DAVIDSON, MG, PHOS, CMP, LIPID, URIC #### [facility] [address] [place] [address] Dr. Sarmad Patino BOX TEST SENT OUTon 10-16-19 22 SENT TO REF LAB 10/15/2021 Normal [facility] Comment on above: Performed By: #### D DAVIDSON, MG, PHOS, CMP, LIPID, URIC #### [facility] [address] [place] [address] Dr. Sarmad CHRISTIEMU, WHOLE BLOODon EVEROLIMUS 6.7 ng/mL Normal 3.0-8.0 [facility] Comment on above: Result Comment: Perf ormed by LC-MS/MS technology. Performed By: #### D DAVIDSON, MG, PHOS, CMP, LIPID, URIC #### [facility] [address] [place] [address] Dr. Sarmad Patino FK506 (TACROLIMUS) WHOLE BLO ODon 10-10-2021 Tacrolimus (FK506), Blood 5.9 ng/mL Normal 2.0-20.0 [facility] Comment on above: Result Comment: Trou gh (immediately following transplant) 15.0 . Trough (steady state, 2 weeks or more after transplant): 3.0 - 8.0 . Performed by LC-MS/MS technology. Performed By: #### D DAVIDSON, MG, PHOS, CMP, LIPID, URIC #### [facility] [address] [place] [address] Dr. Sarmad Patino BILIRUBIN CONJUGATED (DIRECT )on 10-08-2021 BILI, CONJUGATED 0.1 mg/dL Normal 0.0-0.2 [facility] Comment on above: Performed By: #### U JUVE, LIPID, MG, CMP, DBIL, PHOS #### [facility] [address] [address] [address] Sarmad Patino CBC AUTO DIFFon 10-08-2021 BASO # 0.0 103/ul Normal 0.0-0.1 [facility] Comment on above: Performed By: #### D DAVIDSON, MG, PHOS, CMP, LIPID, URIC #### [facility] [address] [place] [address] Dr. Sarmad Patino Basophils/100 WBC (Bld) 0.1 % Critically low 0.2-2.0 [facility] Comment on above: Performed By: #### D DAVIDSON, MG, PHOS, CMP, LIPID, URIC #### [facility] [address] [place] [address] Dr. Sarmad Patino EO # 0.1 103/ul Normal 0.0-0.7 [facility] Comment on above: Performed By: #### D DAVIDSON, MG, PHOS, CMP, LIPID, URIC #### [facility] [address] [place] [address] Dr. Sarmad Patino Eosinophils/100 WBC (Bld) 1.4 % Normal 0.9-7.0 The [facility] Comment on above: Performed By: #### D DAVIDSON, MG, PHOS, CMP, LIPID, URIC #### [facility] [address] [place] [address] Dr. Sarmad Patino Erythrocyte distribution width (RBC) [Ratio] 13.6 % Normal 11.0-15.0 The [facility] Comment on above: Performed By: #### D DAVIDSON, MG, PHOS, CMP, LIPID, URIC #### [facility] [address] [place] [address] Dr. Sarmad Patino Hematocrit (Bld) [Volume fraction] 47.5 % Normal 36.0-48.0 [facility] Comment on above: Performed By: #### D DAVIDSON, MG, PHOS, CMP, LIPID, URIC #### [facility] [address] [place] [address] Dr. Sarmad Patino Hemoglobin (Bld) [Mass/Vol] 15.7 g/dL Normal 12.0-16.0 [facility] Comment on above: Performed By: #### D DAVIDSON, MG, PHOS, CMP, LIPID, URIC #### [facility] [address] [place] [address] Dr. Sarmad Patino IG # 0.04 10e3/ul Critically high 0.00-0.[address] [facility] Comment on above: Performed By: #### D DAVIDSON, MG, PHOS, CMP, LIPID, URIC #### [facility] [address] [place] [address] Dr. Sarmad Patino IG % 0.5 % Normal 0.0-0.5 The [facility] Comment on above: Performed By: #### D DAVIDSON, MG, PHOS, CMP, LIPID, URIC #### [facility] [address] [place] [address] Dr. Sarmad Patino LYMPH # 1.3 103/ul Normal 1.2-3.8 The [facility] Comment on above: Performed By: #### D DAVIDSON, MG, PHOS, CMP, LIPID, URIC #### [facility] [address] [place] [address] Dr. Sarmad Patino Lymphocytes/100 WBC (Bld) 15.4 % Critically low 20.5-60.0 [facility] Comment on above: Performed By: #### D DAVIDSON, MG, PHOS, CMP, LIPID, URIC #### [facility] [address] [place] [address] Dr. Sarmad Patino MANUAL DIFF REQ NO Normal [facility] Comment on above: Performed By: #### D DAVIDSON, MG, PHOS, CMP, LIPID, URIC #### [facility] [address] [place] [address] Dr. Sarmad Patino MCH (RBC) [Entitic mass] 29.1 pg Normal 26.7-34.0 The [facility] Comment on above: Performed By: #### D DAVIDSON, MG, PHOS, CMP, LIPID, URIC #### [facility] [address] [place] [address] Dr. Sarmad Patino MCHC (RBC) [Mass/Vol] 33.1 g/dL Normal 29.9-35.2 The [facility] Comment on above: Performed By: #### D DAVIDSON, MG, PHOS, CMP, LIPID, URIC #### [facility] [address] [place] [address] Dr. Sarmad Patino MCV (RBC) [Entitic vol] 88.0 fL Normal 81.0-99.0 The [facility] Comment on above: Performed By: #### D DAVIDSON, MG, PHOS, CMP, LIPID, URIC #### [facility] [address] [place] [address] Dr. Sarmad Patino MONO # 0.9 103/ul Critically high 0.3-0.8 [facility] Comment on above: Performed By: #### D DAVIDSON, MG, PHOS, CMP, LIPID, URIC #### [facility] [address] [place] [address] Dr. Sarmad Patino Monocytes/100 WBC (Bld) 10.2 % Normal 1.7-12.0 The [facility] Comment on above: Performed By: #### D DAVIDSON, MG, PHOS, CMP, LIPID, URIC #### [facility] [address] [address] [address] Sarmad Patino NEUT # 6.1 103/ul Normal 1.4-6.5 [facility] Comment on above: Performed By: #### D DAVIDSON, MG, PHOS, CMP, LIPID, URIC #### [facility] [address] [address] [address] Sarmad Patino Neutrophils/100 WBC (Bld) 72.4 % Normal 43.0-75.0 [facility] Comment on above: Performed By: #### D DAVIDSON, MG, PHOS, CMP, LIPID, URIC #### [facility] [address] [place] [address] Dr. Sarmad Patino Platelet mean volume (Bld) [Entitic vol] 11.1 fL Normal 9.5-13.5 [facility] Comment on above: Performed By: #### D DAVIDSON, MG, PHOS, CMP, LIPID, URIC #### [facility] [address] [place] [address] Dr. Sarmad Patino PLT 213 103/ul Normal 150-450 [facility] Comment on above: Performed By: #### D DAVIDSON, MG, PHOS, CMP, LIPID, URIC #### [facility] [address] [place] [address] Dr. Sarmad Patino RBC 5.40 106/ul Normal 4.20-5.40 [facility] Comment on above: Performed By: #### D DAVIDSON, MG, PHOS, CMP, LIPID, URIC #### [facility] [address] [place] [address] Dr. Sarmad Patino WBC 8.4 103/ul Normal 4.0-11.0 [facility] Comment on above: Performed By: #### D DAVIDSON, MG, PHOS, CMP, LIPID, URIC #### [facility] [address] [place] [address] Dr. Sarmad Patino LIPID PROFILEon 10-08-2021 CHOL-HDL RATIO NORM SEE BELOW Normal [facility] Comment on above: Result Comment: 3.3 - 4.4 LOW RISK 4.4 - 7.1 AVERAGE RISK 7.1 - 11.0 MODERATE RISK >11.0 HIGH RISK Performed By: #### D DAVIDSON, MG, PHOS, CMP, LIPID, URIC #### [facility] [address] [address] [address] Sarmad Patino Cholesterol [Mass/Vol] 155 mg/dL Normal <=200 [facility] Comment on above: Performed By: #### D DAVIDSON, MG, PHOS, CMP, LIPID, URIC #### [facility] [address] [address] [address] Sarmad Patino Cholesterol in HDL [Mass/Vol] 49 mg/dL Normal 40-60 [facility] Comment on above: Performed By: #### D DAVIDSON, MG, PHOS, CMP, LIPID, URIC #### [facility] [address] [place] [address] Dr. Sarmad Patino Cholesterol in LDL [Mass/Vol] 73.8 mg/dL Normal [facility] Comment on above: Performed By: #### D DAVIDSON, MG, PHOS, CMP, LIPID, URIC #### [facility] [address] [place] [address] Dr. Sarmad Patino Cholesterol.total/Cho lesterol in HDL [Mass ratio] 3.2 {ratio} Normal [facility] Comment on above: Performed By: #### D DAVIDSON, MG, PHOS, CMP, LIPID, URIC #### [facility] [address] [place] [address] Dr. Sarmad Patino HDL NORMAL > or = 60 mg/dl - LO W CARDIOVASCULAR RISK <40 mg/dl - HIGH CARDIOVASCULAR RISK Normal [facility] Comment on above: Performed By: #### D DAVIDSON, MG, PHOS, CMP, LIPID, URIC #### [facility] [address] [address] [address] Sarmad Patino LDL CALC NORMAL SEE BELOW Normal [facility] Comment on above: Result Comment: <100 mg/dl OPTIMAL 100 - 129 mg/dl NEAR OR ABOVE OPTIMAL 130 - 159 mg/dl BORDERLINE HIGH 160 - 189 mg/dl HIGH >190 mg/dl VERY HIGH Performed By: #### D DAVIDSON, MG, PHOS, CMP, LIPID, URIC #### [facility] [address] [address] [address] Sarmad Patino Triglyceride [Mass/Vol] 161 mg/dL Critically high <=150 The [facility] Comment on above: Performed By: #### D DAVIDSON, MG, PHOS, CMP, LIPID, URIC #### [facility] [address] [address] [address] Sarmad Patino VLDL CALC 32.2 mg/dL Normal [facility] Comment on above: Performed By: #### D DAVIDSON, MG, PHOS, CMP, LIPID, URIC #### [facility] [address] [address] [address] Sarmad Patino MAGNESIUMon 10-08-2021 Magnesium [Mass/Vol] 1.6 mg/dL Critically low 1.8-2.4 [facility] Comment on above: Performed By: #### U JUVE, LIPID, MG, CMP, DBIL, PHOS #### [facility] [address] [place] [address] Dr. Sarmad Patino PHOSPHORUSon 10-08-2021 Phosphate [Mass/Vol] 3.5 mg/dL Normal 2.6-4.7 [facility] Comment on above: Performed By: #### U JUVE, LIPID, MG, CMP, DBIL, PHOS #### [facility] [address] [place] [address] Dr. Sarmad Patino PROF 14(COMP METB)on 022 Albumin [Mass/Vol] 3.6 g/dL Normal 3.4-5.0 [facility] Comment on above: Performed By: #### D DAVIDSON, MG, PHOS, CMP, LIPID, URIC #### [facility] [address] [address] [address] Sarmad Patino Albumin/Globulin [Mass ratio] 0.9 {ratio} Normal [facility] Comment on above: Performed By: #### D DAVIDSON, MG, PHOS, CMP, LIPID, URIC #### [facility] [address] [address] [address] Sarmad Patino ALP [Catalytic activity/Vol] 150 U/L Critically high 46-116 [facility] Comment on above: Performed By: #### D DAVIDSON, MG, PHOS, CMP, LIPID, URIC #### [facility] [address] [place] [address] Dr. Sarmad Patino ALT [Catalytic activity/Vol] 21 U/L Normal 14-59 [facility] Comment on above: Performed By: #### D DAVIDSON, MG, PHOS, CMP, LIPID, URIC #### [facility] [address] [place] [address] Dr. Sarmad Patino Anion gap [Moles/Vol] 14.0 mmol/L Normal Th e [facility] Comment on above: Performed By: #### D DAVIDSON, MG, PHOS, CMP, LIPID, URIC #### [facility] [address] [place] [address] Dr. Sarmad Patino AST [Catalytic activity/Vol] 13 U/L Critically low 15-37 [facility] Comment on above: Performed By: #### D DAVIDSON, MG, PHOS, CMP, LIPID, URIC #### [facility] [address] [place] [address] Dr. Sarmad Patino Bilirubin [Mass/Vol] 0.5 mg/dL Normal 0.2-1.0 [facility] Comment on above: Performed By: #### D DAVIDSON, MG, PHOS, CMP, LIPID, URIC #### [facility] [address] [place] [address] Dr. Sarmad Patino Calcium [Mass/Vol] 9.8 mg/dL Normal 8.5-10.1 [facility] Comment on above: Performed By: #### D DAVIDSON, MG, PHOS, CMP, LIPID, URIC #### [facility] [address] [place] [address] Dr. Sarmad Patino Chloride [Moles/Vol] 105 mmol/L Normal 98-107 [facility] Comment on above: Performed By: #### D DAVIDSON, MG, PHOS, CMP, LIPID, URIC #### [facility] [address] [address] [address] Sarmad Patino CO2 [Moles/Vol] 25.9 mmol/L Normal 21.0-32.0 [facility] Comment on above: Performed By: #### D DAVIDSON, MG, PHOS, CMP, LIPID, URIC #### [facility] [address] [place] [address] Dr. Sarmad Patino Creatinine [Mass/Vol] 0.81 mg/dL Normal 0.55-1.02 The [facility] Comment on above: Performed By: #### D DAVIDSON, MG, PHOS, CMP, LIPID, URIC #### [facility] [address] [address] [address] Sarmad Patino EGFR-AF MOZAMBICAN >60 Normal >=60 [facility] Comment on above: Performed By: #### D DAVIDSON, MG, PHOS, CMP, LIPID, URIC #### [facility] [address] [place] [address] Dr. Sarmad Patino EGFR-NON AF MOZAMBICAN >60 Normal >=60 The [facility] Comment on above: Performed By: #### D DAVIDSON, MG, PHOS, CMP, LIPID, URIC #### [facility] [address] [place] [address] Dr. Sarmad Patino Globulin (S) [Mass/Vol] 3.8 g/dL Normal The [facility] Comment on above: Performed By: #### D DAVIDSON, MG, PHOS, CMP, LIPID, URIC #### [facility] [address] [place] [address] Dr. Sarmad Patino Glucose [Mass/Vol] 101 mg/dL Normal 74-106 [facility] Comment on above: Performed By: #### D DAVIDSON, MG, PHOS, CMP, LIPID, URIC #### [facility] [address] [place] [address] Dr. Sarmad Patino Potassium [Moles/Vol] 3.9 mmol/L Normal 3.5-5.1 The [facility] Comment on above: Performed By: #### D DAVIDSON, MG, PHOS, CMP, LIPID, URIC #### [facility] [address] [place] [address] Dr. Sarmad Patino Protein [Mass/Vol] 7.4 g/dL Normal 6.4-8.2 [facility] Comment on above: Performed By: #### D DAVIDSON, MG, PHOS, CMP, LIPID, URIC #### [facility] [address] [address] [address] Sarmad Patino Sodium [Moles/Vol] 141 mmol/L Normal 136-145 [facility] Comment on above: Performed By: #### D DAVIDSON, MG, PHOS, CMP, LIPID, URIC #### [facility] [address] [address] [address] Sarmad Patino Urea nitrogen [Mass/Vol] 18.0 mg/dL Normal 7.0-18.0 [facility] Comment on above: Performed By: #### D DAVIDSON, MG, PHOS, CMP, LIPID, URIC #### [facility] [address] [place] [address] Dr. Sarmad Patino Urea nitrogen/Creatinine [Mass ratio] 22.2 mg/mg Normal [facility] Comment on above: Performed By: #### D DAVIDSON, MG, PHOS, CMP, LIPID, URIC #### [facility] [address] [place] [address] Dr. Sarmad Patino URIC ACID SERUMon 10-08-2021 Urate [Mass/Vol] 4.7 mg/dL Normal 2.6-6.0 [facility] Comment on above: Performed By: #### D DAVIDSON, MG, PHOS, CMP, LIPID, URIC #### [facility] [address] [place] [address] Dr. Sarmad CRHISTIEMU, WHOLE BLOODon EVEROLIMUS 8.0 ng/mL Normal 3.0-8.0 [facility] Comment on above: Result Comment: Perf ormed by LC-MS/MS technology. Performed By: #### U JUVE, LIPID, MG, CMP, DBIL, PHOS #### [facility] [address] [place] [address] Dr. Sarmad Patino FK506 (TACROLIMUS) WHOLE BLO ODon 09-14-2021 Tacrolimus (FK506), Blood 9.3 ng/mL Normal 2.0-20.0 [facility] Comment on above: Result Comment: Trou gh (immediately following transplant) 15.0 . Trough (steady state, 2 weeks or more after transplant): 3.0 - 8.0 . Performed by LC-MS/MS technology. Performed By: #### U JUVE, LIPID, MG, CMP, DBIL, PHOS #### [facility] [address] [place] [address] Dr. Sarmad Patino BK VIRUS PCR QUANTon 022 BKV DNA QUANT PCR PLASMA Negative Normal Negative The [facility] Comment on above: Result Comment: No B K DNA detected. . The linear range of the assay is 22 - 100,000,000 IU/mL. Performed By: #### D DAVIDSON, MG, PHOS, CMP, LIPID, URIC #### [facility] [address] [place] [address] Dr. Sarmad Patino Log10 BKV DNA Plasma Normal The [facility] Comment on above: Performed By: #### D DAVIDSON, MG, PHOS, CMP, LIPID, URIC #### [facility] [address] [place] [address] Dr. Sarmad Patino BILIRUBIN CONJUGATED (DIRECT )on 09-10-2021 BILI, CONJUGATED 0.1 mg/dL Normal 0.0-0.2 [facility] Comment on above: Performed By: #### D DAVIDSON, MG, PHOS, CMP, LIPID, URIC #### [facility] [address] [place] [address] Dr. Sarmad Patino CBC AUTO DIFFon 09-10-2021 BASO # 0.0 103/ul Normal 0.0-0.1 [facility] Comment on above: Performed By: #### D DAVIDSON, MG, PHOS, CMP, LIPID, URIC #### [facility] [address] [place] [address] Dr. Sarmad Patino Basophils/100 WBC (Bld) 0.1 % Critically low 0.2-2.0 The [facility] Comment on above: Performed By: #### D DAVIDSON, MG, PHOS, CMP, LIPID, URIC #### [facility] [address] [place] [address] Dr. Sarmad Patino EO # 0.2 103/ul Normal 0.0-0.7 [facility] Comment on above: Performed By: #### D DAVIDSON, MG, PHOS, CMP, LIPID, URIC #### [facility] [address] [address] [address] Sarmad Patino Eosinophils/100 WBC (Bld) 2.3 % Normal 0.9-7.0 [facility] Comment on above: Performed By: #### D DAVIDSON, MG, PHOS, CMP, LIPID, URIC #### [facility] [address] [place] [address] Dr. Sarmad Patino Erythrocyte distribution width (RBC) [Ratio] 13.6 % Normal 11.0-15.0 [facility] Comment on above: Performed By: #### D DAVIDSON, MG, PHOS, CMP, LIPID, URIC #### [facility] [address] [place] [address] Dr. Sarmad Patino Hematocrit (Bld) [Volume fraction] 45.1 % Normal 36.0-48.0 [facility] Comment on above: Performed By: #### D DAVIDSON, MG, PHOS, CMP, LIPID, URIC #### [facility] [address] [place] [address] Dr. Sarmad Patino Hemoglobin (Bld) [Mass/Vol] 14.7 g/dL Normal 12.0-16.0 [facility] Comment on above: Performed By: #### D DAVIDSON, MG, PHOS, CMP, LIPID, URIC #### [facility] [address] [place] [address] Dr. Sarmad Patino IG # 0.03 10e3/ul Normal 0.00-0.03 [facility] Comment on above: Performed By: #### D DAVIDSON, MG, PHOS, CMP, LIPID, URIC #### [facility] [address] [place] [address] Dr. Sarmad Patino IG % 0.4 % Normal 0.0-0.5 [facility] Comment on above: Performed By: #### D DAVIDSON, MG, PHOS, CMP, LIPID, URIC #### [facility] [address] [place] [address] Dr. Sarmad Patino LYMPH # 1.3 103/ul Normal 1.2-3.8 [facility] Comment on above: Performed By: #### D DAVIDSON, MG, PHOS, CMP, LIPID, URIC #### [facility] [address] [place] [address] Dr. Sarmad Patino Lymphocytes/100 WBC (Bld) 18.9 % Critically low 20.5-60.0 [facility] Comment on above: Performed By: #### D DAVIDSON, MG, PHOS, CMP, LIPID, URIC #### [facility] [address] [place] [address] Dr. Sarmad Patino MANUAL DIFF REQ NO Normal [facility] Comment on above: Performed By: #### D DAVIDSON, MG, PHOS, CMP, LIPID, URIC #### [facility] [address] [place] [address] Dr. Sarmad Patino MCH (RBC) [Entitic mass] 29.0 pg Normal 26.7-34.0 [facility] Comment on above: Performed By: #### D DAVIDSON, MG, PHOS, CMP, LIPID, URIC #### [facility] [address] [place] [address] Dr. Sarmad Patino MCHC (RBC) [Mass/Vol] 32.6 g/dL Normal 29.9-35.2 [facility] Comment on above: Performed By: #### D DAVIDSON, MG, PHOS, CMP, LIPID, URIC #### [facility] [address] [place] [address] Dr. Sarmad Patino MCV (RBC) [Entitic vol] 89.0 fL Normal 81.0-99.0 [facility] Comment on above: Performed By: #### D DAVIDSON, MG, PHOS, CMP, LIPID, URIC #### [facility] [address] [place] [address] Dr. Sarmad Patino MONO # 0.8 103/ul Normal 0.3-0.8 [facility] Comment on above: Performed By: #### D DAVIDSON, MG, PHOS, CMP, LIPID, URIC #### [facility] [address] [place] [address] Dr. Sarmad Patino Monocytes/100 WBC (Bld) 11.9 % Normal 1.7-12.0 [facility] Comment on above: Performed By: #### D DAVIDSON, MG, PHOS, CMP, LIPID, URIC #### [facility] [address] [address] [address] Sarmad Patino NEUT # 4.6 103/ul Normal 1.4-6.5 The [facility] Comment on above: Performed By: #### D DAVIDSON, MG, PHOS, CMP, LIPID, URIC #### [facility] [address] [place] [address] Dr. Sarmad Patino Neutrophils/100 WBC (Bld) 66.4 % Normal 43.0-75.0 [facility] Comment on above: Performed By: #### D DAVIDSON, MG, PHOS, CMP, LIPID, URIC #### [facility] [address] [address] [address] Sarmad Patino Platelet mean volume (Bld) [Entitic vol] 10.6 fL Normal 9.5-13.5 [facility] Comment on above: Performed By: #### D DAVIDSON, MG, PHOS, CMP, LIPID, URIC #### [facility] [address] [address] [address] Sarmad Patino PLT 233 103/ul Normal 150-450 [facility] Comment on above: Performed By: #### D DAVIDSON, MG, PHOS, CMP, LIPID, URIC #### [facility] [address] [address] [address] Sarmad Patino RBC 5.07 106/ul Normal 4.20-5.40 [facility] [facility] Comment on above: Performed By: #### D DAVIDSON, MG, PHOS, CMP, LIPID, URIC #### [facility] [place] [facility] [address] [address] [address] Sarmad Patino WBC 6.9 103/ul Normal 4.0-11.0 [facility] [place] Comment on above: Performed By: #### D DAVDISON, MG, PHOS, CMP, LIPID, URIC #### [facility] [place] [facility] [address] [address] [address] Sarmad Patino GLYCOHEMOGLOBIN A1Con 2021 ADA RECOMMENDATION SEE BELOW Normal [facility] Comment on above: Result Comment: ADA RECOMMENDED LIMIT 4.0 - 6.0 ADA THERAPEUTIC TARGET < 7.0 ACTION SUGGESTED > 7.0 Performed By: #### D DAVIDSON, MG, PHOS, CMP, LIPID, URIC #### [facility] [place] [facility] [address] [address] [address] Sarmad Patino Glucose [Mass/Vol] 120 mg/dL Normal [facility] Comment on above: Performed By: #### D DAVIDSON, MG, PHOS, CMP, LIPID, URIC #### [facility] [place] [facility] [address] [address] [address] Sarmad Patino HbA1c (Bld) [Mass fraction] 5.8 % Normal 4.5-6.2 [facility] Comment on above: Performed By: #### D DAVIDSON, MG, PHOS, CMP, LIPID, URIC #### [facility] [place] [facility] [address] [place] [address] Dr. Sarmad Patino LIPID PROFILEon 09-10-2021 CHOL-HDL RATIO NORM SEE BELOW Normal [facility] Comment on above: Result Comment: 3.3 - 4.4 LOW RISK 4.4 - 7.1 AVERAGE RISK 7.1 - 11.0 MODERATE RISK >11.0 HIGH RISK Performed By: #### D DAVIDSON, MG, PHOS, CMP, LIPID, URIC #### [facility] [place] [facility] [address] [place] [address] Dr. Sarmad Patino Cholesterol [Mass/Vol] 150 mg/dL Normal <=200 [facility] Comment on above: Performed By: #### D DAVIDSON, MG, PHOS, CMP, LIPID, URIC #### [facility] [place] [facility] [address] [address] [address] Sarmad Patino Cholesterol in HDL [Mass/Vol] 47 mg/dL Normal 40-60 [facility] Comment on above: Performed By: #### D DAVIDSON, MG, PHOS, CMP, LIPID, URIC #### [facility] [place] [facility] [address] [place] [address] Dr. Saramd Patino Cholesterol in LDL [Mass/Vol] 78.4 mg/dL Normal [facility] Comment on above: Performed By: #### D DAVIDSON, MG, PHOS, CMP, LIPID, URIC #### [facility] [place] [facility] [address] [address] [address] Sarmad Patino Cholesterol.total/Cho lesterol in HDL [Mass ratio] 3.2 {ratio} Normal [facility] Comment on above: Performed By: #### D DAVIDSON, MG, PHOS, CMP, LIPID, URIC #### [facility] [place] [facility] [address] [address] [address] Sarmad Patino HDL NORMAL > or = 60 mg/dl - LO W CARDIOVASCULAR RISK <40 mg/dl - HIGH CARDIOVASCULAR RISK Normal [facility] Comment on above: Performed By: #### D DAVIDSON, MG, PHOS, CMP, LIPID, URIC #### [facility] [address] [place] [address] Dr. Sarmad Patino LDL CALC NORMAL SEE BELOW Normal [facility] Comment on above: Result Comment: <100 mg/dl OPTIMAL 100 - 129 mg/dl NEAR OR ABOVE OPTIMAL 130 - 159 mg/dl BORDERLINE HIGH 160 - 189 mg/dl HIGH >190 mg/dl VERY HIGH Performed By: #### D DAVIDSON, MG, PHOS, CMP, LIPID, URIC #### [facility] [place] [facility] [address] [address] [address] Sarmad Patino Triglyceride [Mass/Vol] 123 mg/dL Normal <=150 [facility] Comment on above: Performed By: #### D DAVIDSON, MG, PHOS, CMP, LIPID, URIC #### [facility] [address] [address] [address] Sarmad Patino VLDL CALC 24.6 mg/dL Normal The [facility] Comment on above: Performed By: #### D DAVIDSON, MG, PHOS, CMP, LIPID, URIC #### [facility] [address] [address] [address] Sarmad Patino MAGNESIUMon 09-10-2021 Magnesium [Mass/Vol] 1.5 mg/dL Critically low 1.8-2.4 [facility] Comment on above: Performed By: #### D DAVIDSON, MG, PHOS, CMP, LIPID, URIC #### [facility] [address] [place] [address] Dr. Sarmad Patino PHOSPHORUSon 09-10-2021 Phosphate [Mass/Vol] 3.8 mg/dL Normal 2.6-4.7 [facility] Comment on above: Performed By: #### D DAVIDSON, MG, PHOS, CMP, LIPID, URIC #### [facility] [address] [place] [address] Dr. Sarmad Patino PROF 14(COMP METB)on 022 Albumin [Mass/Vol] 3.4 g/dL Normal 3.4-5.0 [facility] Comment on above: Performed By: #### D DAVIDSON, MG, PHOS, CMP, LIPID, URIC #### [facility] [place] [facility] [address] [place] [address] Dr. Sarmad Patino Albumin/Globulin [Mass ratio] 0.9 {ratio} Normal [facility] Comment on above: Performed By: #### D DAVIDSON, MG, PHOS, CMP, LIPID, URIC #### [facility] [place] [facility] [address] [place] [address] Dr. Sarmad Patino ALP [Catalytic activity/Vol] 143 U/L Critically high 46-116 [facility] Comment on above: Performed By: #### D DAVIDSON, MG, PHOS, CMP, LIPID, URIC #### [facility] [place] [facility] [address] [place] [address] Dr. Sarmad Patino ALT [Catalytic activity/Vol] 19 U/L Normal 14-59 [facility] Comment on above: Performed By: #### D DAVIDSON, MG, PHOS, CMP, LIPID, URIC #### [facility] [address] [place] [address] Dr. Sarmad Patino Anion gap [Moles/Vol] 13.4 mmol/L Normal [facility] Comment on above: Performed By: #### D DAVIDSON, MG, PHOS, CMP, LIPID, URIC #### [facility] [address] [place] [address] Dr. Sarmad Patino AST [Catalytic activity/Vol] 24 U/L Normal 15-37 [facility] Comment on above: Performed By: #### D DAVIDSON, MG, PHOS, CMP, LIPID, URIC #### [facility] [address] [address] [address] Sarmad Patino Bilirubin [Mass/Vol] 0.4 mg/dL Normal 0.2-1.0 [facility] Comment on above: Performed By: #### D DAVIDSON, MG, PHOS, CMP, LIPID, URIC #### [facility] [place] [facility] [address] [address] [address] Sarmad Patino Calcium [Mass/Vol] 9.3 mg/dL Normal 8.5-10.1 [facility] Comment on above: Performed By: #### D DAVIDSON, MG, PHOS, CMP, LIPID, URIC #### [facility] [address] [place] [address] Dr. Sarmad Patino Chloride [Moles/Vol] 106 mmol/L Normal 98-107 [facility] Comment on above: Performed By: #### D DAVIDSON, MG, PHOS, CMP, LIPID, URIC #### [facility] [address] [place] [address] Dr. Sarmad Patino CO2 [Moles/Vol] 25.5 mmol/L Normal 21.0-32.0 [facility] Comment on above: Performed By: #### D DAVIDSON, MG, PHOS, CMP, LIPID, URIC #### [facility] [address] [place] [address] Dr. Sarmad Patino Creatinine [Mass/Vol] 0.85 mg/dL Normal 0.55-1.02 [facility] Comment on above: Performed By: #### D DAVIDSON, MG, PHOS, CMP, LIPID, URIC #### [facility] [address] [place] [address] Dr. Sarmad Patino EGFR-AF MOZAMBICAN >60 Normal >=60 [facility] Comment on above: Performed By: #### D DAVIDSON, MG, PHOS, CMP, LIPID, URIC #### [facility] [address] [place] [address] Dr. Sarmad Patino EGFR-NON AF MOZAMBICAN >60 Normal >=60 [facility] Comment on above: Performed By: #### D DAVIDSON, MG, PHOS, CMP, LIPID, URIC #### [facility] [address] [address] [address] Sarmad Patino Globulin (S) [Mass/Vol] 3.8 g/dL Normal [facility] Comment on above: Performed By: #### D DAVIDSON, MG, PHOS, CMP, LIPID, URIC #### [facility] [address] [place] [address] Dr. Sarmad Patino Glucose [Mass/Vol] 100 mg/dL Normal 74-106 [facility] Comment on above: Performed By: #### D DAVIDSON, MG, PHOS, CMP, LIPID, URIC #### [facility] [address] [place] [address] Dr. Sarmad Patino Potassium [Moles/Vol] 3.9 mmol/L Normal 3.5-5.1 [facility] Comment on above: Performed By: #### D DAVIDSON, MG, PHOS, CMP, LIPID, URIC #### [facility] [address] [place] [address] Dr. Sarmad Paitno Protein [Mass/Vol] 7.2 g/dL Normal 6.4-8.2 [facility] Comment on above: Performed By: #### D DAVIDSON, MG, PHOS, CMP, LIPID, URIC #### [facility] [address] [place] [address] Dr. Sarmad Patino Sodium [Moles/Vol] 141 mmol/L Normal 136-145 [facility] Comment on above: Performed By: #### D DAVIDSON, MG, PHOS, CMP, LIPID, URIC #### [facility] [address] [place] [address] Dr. Sarmad Patino Urea nitrogen [Mass/Vol] 16.0 mg/dL Normal 7.0-18.0 The [facility] Comment on above: Performed By: #### D DAVIDSON, MG, PHOS, CMP, LIPID, URIC #### [facility] [address] [place] [address] Dr. Sarmad Patino Urea nitrogen/Creatinine [Mass ratio] 18.8 mg/mg Normal [facility] Comment on above: Performed By: #### D DAVIDSON, MG, PHOS, CMP, LIPID, URIC #### [facility] [place] [facility] [address] [place], [place] [address] Dr. Sarmad Patino URIC ACID SERUMon 09-10-2021 Urate [Mass/Vol] 4.8 mg/dL Normal 2.6-6.0 [facility] Comment on above: Performed By: #### D DAVIDSON, MG, PHOS, CMP, LIPID, URIC #### [facility] [place] [facility] [address] [place], [place] [address] Dr. Sarmad Patino Urinalysis - AUTOMATEDon Appearance (U) cloudy [employer] Other Bilirubin Ql (U) Negative [employer] Other Color (U) pale yellow [employer] Other Glucose Ql (U) Negative [employer] Other Hemoglobin Ql (U) moderate [employer] Other Ketones Ql (U) Negative [employer] Other Leukocyte esterase Test strip Ql (U) moderate [employer] Other Nitrite Ql (U) Negative [employer] Other pH (U) 7.0 [pH] [employer] Other Protein Ql (U) Negative [employer] Other Specific gravity (U) [Rel density] 1.010 [employer] Other Urobilinogen (U) [Mass/Vol] 0.2 mg/dL [employer] Other Urinalysis - AUTOMATED [employer] Other Urine Cultureon 08-14-2021 Urine Culture 100,000 [employer] Other Urine Culture <16 Susceptible [employer] Other Urine Culture >16 Resistant [employer] Other Urine Culture <4 Susceptible [employer] Other Urine Culture <2 Susceptible [employer] Other Urine Culture <1 Susceptible [employer] Other Urine Culture <0.5 Susceptible [employer] Other Urine Culture <32 Susceptible [employer] Other Urine Culture <2/38 Susceptible [employer] Other Bacteria identified Cx Nom (U) Reason for Exam Dysuria Urine ORGANISM: Klebsiella pneumoniae (O:KLEPNE) [place] Count 100,000 Aerobic SHYLA Charge (NUC86) ---- [...] RESISTANT TO ALL B-LACTAM DRUGS. PERFORMED BY: [address] [place] [address] PATHOLOGIST [employer]OR[employer] HELPER LOVELY COLE M.D. Normal [facility] Comment on above: Performed By: #### C UU #### [facility] [address] *URINE CULTUREon 12-31-2017 Bacteria identified in Urine by Culture Clinical Report: (D) Specimen: URINE Collected: 12/31/2017 13:40 Status: Final Last Updated: 01/04/2018 12:38 ISO (Final) Diphtheroids >100,000 Cfu/Ml 2 Morphologies ISO (Final) Aerococcus urinae 50,000 - 100,000 Cfu/mL Result changed by RFISCHB on 01/04/2018 12:38. The previous result was: ISO (Prelim) Normal [facility] Comment on above: Performed By: #### 4 1000, 76587, 81064, 94719, 07242, [address] ####[address] [address] [address] CBC W/DIFFon 12-25-2017 ABS BASOPHILS 0.0 10*3/uL Normal 0.0-0.2 The [facility] Comment on above: Performed By: #### 5 0103 ####[address] ABS IMM GRANS 0.0 10*3/uL Normal 0.0-0.2 The [facility] Comment on above: Performed By: #### 5 0103 ####[address] ABS NEUTROPHILS 5.0 10*3/uL Normal 1.6-7.6 The [facility] Comment on above: Performed By: #### 5 0103 ####[address] [address] Basophils Auto #/vol (Bld) 0.1 % Normal 0.0-1.0 [facility] Comment on above: Performed By: #### 5 0103 ####[place] [address] Eosinophils Auto #/vol (Bld) 0.1 10*3/uL Normal 0.0-0.5 [facility] Comment on above: Performed By: #### 5 0103 ####[address] Eosinophils/100 WBC Auto (Bld) 1.6 % Normal 0.0-6.0 [facility] Comment on above: Performed By: #### 3 ####[address] Erythrocyte distribution width Auto Ratio (RBC) 14.6 % Normal 11.5-15.0 [facility] Comment on above: Performed By: #### 102 ####[address] Hematocrit Auto Volume Fraction (Bld) 44.9 % Normal 36.0-45.0 The [facility] Comment on above: Performed By: #### 3 ####[address] Hemoglobin mass conc (Bld) 14.9 g/dL Normal 12.0-15.0 [facility] Comment on above: Performed By: #### 5 3 ####[address] IMMATURE GRANS 0.4 % Normal 0.0-1.0 The [facility] Comment on above: Performed By: #### 5 3 ####[address] Lymphocytes Auto #/vol (Bld) 1.0 10*3/uL Low 1.2-4.0 [facility] Comment on above: Performed By: #### 5 3 ####[address] [place] [address], [place] Lymphocytes/100 WBC Auto (Bld) 14.9 % Low 20.0-45.0 [facility] Comment on above: Performed By: #### 5 0103 ####[facility] [place] [address] MCH Auto Entitic mass (RBC) 28.8 pg Normal 27.0-33.0 [facility] Comment on above: Performed By: #### 3 ####[address] MCHC Auto mass conc (RBC) 33.2 g/dL Normal 32.0-35.0 [facility] Comment on above: Performed By: #### 3 ####[address] MCV Auto Entitic volume (RBC) 86.7 fL Normal 82.0-98.0 [facility] Comment on above: Performed By: #### 5 3 ####[address] Monocytes Auto #/vol (Bld) 0.7 10*3/uL Normal 0.1-1.0 [facility] Comment on above: Performed By: #### 5 3 ####[facility] [place] [address] MONOS 10.6 % Normal 5.0-12.0 [facility] Comment on above: Performed By: #### 5 3 ####[address] Neutrophils/100 WBC Auto (Bld) 72.4 % High 40.0-72.0 [facility] Comment on above: Performed By: #### 5 3 ####[address] [place] [address], [place] Nucleated RBC/100 WBC Ratio (Bld) 0 % Normal 0-0 [facility] Comment on above: Performed By: #### 5 0103 ####[facility]3000 [facility].[address] PLAT CNT 203 10*3/uL Normal 150-400 The [facility] Comment on above: Performed By: #### 5 0103 ####[facility]3000 [facility].[address] RBC Auto #/vol (Bld) 5.18 10*6/uL High 3.80-5.00 Th [facility] Comment on above: Performed By: #### 5 0103 ####[facility] [facility].[address] WBC Auto #/vol (Bld) 6.90 10*3/uL Normal 4.00-10.60 Th [facility] Comment on above: Performed By: #### 5 0103 ####[facility] [facility].[address] COMP METABOLIC PANELon 12-25 Albumin mass conc 4.3 g/dL Normal 3.5-5.7 [facility] Comment on above: Performed By: #### 4 1000, 89117, 74354, 12689, 29661, 22785 ####[facility] [facility].[address] ALKALINE PHOSPH 118 IU/L High 34-104 The [facility] Comment on above: Performed By: #### 4 1000, 01486, 23589, 77633, 58572, 12413 ####[facility] [facility].[address] ALT enzyme act/vol 11 U/L Normal 7-52 [facility] Comment on above: Performed By: #### 4 1000, 29047, 53917, 56511, 48588, 23692 ####[facility] [place] [address], [facility] AST enzyme act/vol 17 U/L Normal 13-39 [facility] Comment on above: Performed By: #### 4 1000, 13103, 58990, 23136, 64719, 80816 ####[facility] [place] [address], [facility] Bilirubin mass conc 0.4 mg/dL Normal 0.3-1.0 The [facility] Comment on above: Performed By: #### 4 1000, 96678, 52752, 24071, 00750, 59550 ####[facility] [place] [address], [facility] Calcium mass conc 9.8 mg/dL Normal 8.6-10.3 [facility] Comment on above: Performed By: #### 4 1000, 91533, 81380, 85529, 14760, 97291 ####[facility] [place] [address], [facility] Chloride molar conc 104 mmol/L Normal 98-107 The [facility] Comment on above: Performed By: #### 4 1000, 38688, 78894, 65863, 76995, 79969 ####[facility] [place] [address], [facility] CO2 molar conc 27 mmol/L Normal 21-31 The [facility] Comment on above: Performed By: #### 4 1000, 83769, 23543, 97698, 31799, 87123 ####[facility] [place] [address], [facility] Creatinine mass conc 0.76 mg/dL Normal 0.60-1.20 [facility] Comment on above: Performed By: #### 4 1000, 29684, 13361, 29043, 24806, 53571 ####[facility] [place] [address], [facility] GFR/1.73 sq M predicted among blacks MDRD vol rate/area (S/P/Bld) mL/min/{1.73_m2} Normal >60 The [facility] Comment on above: Performed By: #### 4 1000, 43718, 66258, 85631, 42188, 73343 ####[facility] [place] [address], [facility] GFR/1.73 sq M predicted among non-blacks MDRD vol rate/area (S/P/Bld) mL/min/{1.73_m2} Normal >60 The [facility] Comment on above: Performed By: #### 4 1000, 86895, 97046, 26903, 14169, 57808 ####[facility] [place] [address], [facility] Glucose mass conc 94 mg/dL Normal 70-100 The [facility] Comment on above: Performed By: #### 4 1000, 44525, 58189, 57263, 07262, 39881 ####[facility] [place] [address], [facility] Potassium molar conc 3.9 mmol/L Normal 3.5-5.1 [facility] Comment on above: Performed By: #### 4 1000, 23839, 71360, 58802, 39786, 84729 ####[facility] [place] [address], [place] Protein mass conc 7.2 g/dL Normal 6.0-8.3 [facility] Comment on above: Performed By: #### 4 1000, 35895, 43845, 38934, 26295, 72633 ####[facility] [place] [address], [place] Sodium molar conc 140 mmol/L Normal 136-145 [facility] Comment on above: Performed By: #### 4 1000, 07460, 29348, 34150, 54227, 71011 ####[facility]3000 [facility].[address] Urea nitrogen mass conc 15 mg/dL Normal 7-25 [facility] Comment on above: Performed By: #### 4 1000, 29194, 50024, 19235, 44172, 82890 ####[facility]3000 [facility].[address] DIRECT BILIon 12-25-2017 Bilirubin.direct mass conc 0.1 mg/dL Normal 0.0-0.2 [facility] Comment on above: Performed By: #### 4 1000, 56873, 41263, 05453, 22601, 61320 ####[facility]3000 [facility].[address] EVEROLIMUS 97630oi 8 EVEROLIMUS 4.7 ng/mL Normal [facility] [...] the transplantcenter.Test developed and characteristics determined by [employer]. See Compliance Statement B: [employer]/CSPerformed by [employer],[address] [facility] [address] bih.[employer], Leonid Antonio MD - Lab. Director LIPID PROFILEon 12-25-2017 Cholesterol in HDL mass conc 51 mg/dL Normal 23-92 The [facility] Comment on above: Result Comment: Slig ht variation in normal range could be due to gender and/or age.HDL CHOLESTEROL REFERENCE RANGE:20 years and older Cardiovascular Risk> or =60 mg/dL [id number] TO 59 mg/dL Low Risk<40 mg/dL High Risk Performed By: #### 4 5506, 32169, 35322, 41063, 01997, 68469 ####[facility] [place] [address], [facility] Cholesterol in LDL mass conc 58 mg/dL Normal 0-130 [facility] Comment on above: Result Comment: LDL IS A CALCULATIONLDL IS ONLY VALID IF THE TRIG IS LESS THAN 400. Performed By: #### 4 5506, 73489, 31589, 52787, 54346, 50244 ####[facility] [place] [address], [facility] Cholesterol mass conc 122 mg/dL Normal 120-200 [facility] Comment on above: Result Comment: CHOL ESTEROL REFERENCE RANGE:20 YEARS AND OLDER CARDIOVASCULAR RISKLess than 200 mg/dl Low [id number] to 239 mg/dl Borderline [id number] mg/dl and greater High Risk Performed By: #### 4 5506, 08233, 95950, 10324, 86790, 74329 ####[facility] [place] [address], [place] Cholesterol.total/Cho lesterol in HDL mass ratio 2.4 {ratio} Normal .0-4.5 [facility] Comment on above: Performed By: #### 4 5506, 20726, 41386, 21318, 32764, 91255 ####[facility] NON-HDL CHOLESTEROL 71 mg/dL Normal The [facility] Comment on above: Performed By: #### 4 5506, 82054, 55548, 42809, 29184, 60759 ####[facility] Triglyceride mass conc 65 mg/dL Normal 40-149 [facility] Comment on above: Result Comment: TRIG LYCERIDE REFERENCE RANGE:20 YEARS AND OLDER CARDIOVASCULAR RISKLESS THAN 150 mg/dl LOW [id number] TO 199 mg/dl BORDERLINE [id number] mg/dl AND GREATER HIGH RISK Performed By: #### 4 5506, 87898, 45215, 76335, 36270, 94357 ####[facility] VLDL CHOL 13 mg/dL Normal 0-40 [facility] Comment on above: Performed By: #### 4 5506, 53039, 13246, 46419, 67730, 17453 ####[facility] MAGNESIUM BLOODon 12-25-2017 Magnesium mass conc 1.8 mg/dL Low 1.9-2.7 The [facility] Comment on above: Performed By: #### 4 1000, 62784, 12974, 92577, 75135, 84610 ####[facility] PHOSPHORUS BLOODon 8 Phosphate mass conc 3.4 mg/dL Normal 2.5-5.0 The [facility] Comment on above: Performed By: #### 4 5506, 19629, 18177, 61734, 59515, 02892 ####[facility] [place] [address], [facility] TACROLIMUSon 12-25-2017 Tacrolimus mass conc (Bld) 6.4 ng/mL Normal 5.0-20.0 [facility] Comment on above: Result Comment: The [employer] Tacrolimus assay is a delayed one-step immunoassayfor the quantitative determination of tacrolimus in human whole bloodusing the chemiluminescent microparticle immunoassay (CMIA) technologywith flexible assay protocols, referred to as Chemiflex. Performed By: #### 4 1000, 44279, 57628, 18711, 93570, 26475 ####[facility] URIC ACID BLOODon 12-25-2017 Urate mass conc 4.7 mg/dL Normal 2.3-6.6 The [facility] Comment on above: Performed By: #### 4 5506, 37215, 95529, 54858, 08267, 11199 ####[facility] CBC W/DIFFon 10-30-2017 ABS BASOPHILS 0.0 10*3/uL Normal 0.0-0.2 The [facility] Comment on above: Performed By: #### 4 9191, 59280 ####[place] [address] [address] ABS IMM GRANS 0.0 10*3/uL Normal 0.0-0.2 The [facility] Comment on above: Performed By: #### 4 3782, 67324 ####[place] [address] ABS NEUTROPHILS 4.9 10*3/uL Normal 1.6-7.6 The [facility] Comment on above: Performed By: #### 4 7574, 91812 ####[place] [address] Basophils Auto #/vol (Bld) 0.1 % Normal 0.0-1.0 The [facility] Comment on above: Performed By: #### 4 3901, 85998 ####[address] [place] [address], [place] Eosinophils Auto #/vol (Bld) 0.1 10*3/uL Normal 0.0-0.5 The [facility] Comment on above: Performed By: #### 4 6247, 52391 ####[address] Eosinophils/100 WBC Auto (Bld) 1.4 % Normal 0.0-6.0 The [facility] Comment on above: Performed By: #### 4 9847, 49395 ####[address] Erythrocyte distribution width Auto Ratio (RBC) 14.6 % Normal 11.5-15.0 The [facility] Comment on above: Performed By: #### 4 6647, 59994 ####[address] Hematocrit Auto Volume Fraction (Bld) 46.8 % High 36.0-45.0 The [facility] Comment on above: Performed By: #### 4 3206, 70354 ####[address] Hemoglobin mass conc (Bld) 15.1 g/dL High 12.0-15.0 The [facility] Comment on above: Performed By: #### 4 6106, 33147 ####[address] IMMATURE GRANS 0.4 % Normal 0.0-1.0 The [facility] Comment on above: Performed By: #### 4 0880, 84768 ####[address] Lymphocytes Auto #/vol (Bld) 1.2 10*3/uL Normal 1.2-4.0 The [facility] Comment on above: Performed By: #### 4 3905, 20133 ####[facility] Lymphocytes/100 WBC Auto (Bld) 16.6 % Low 20.0-45.0 The [facility] Comment on above: Performed By: #### 4 1458, 75946 ####[facility]3000 [facility].[address] MCH Auto Entitic mass (RBC) 29.0 pg Normal 27.0-33.0 The [facility] Comment on above: Performed By: #### 4 6160, 49074 ####[facility]3000 [facility].[address] MCHC Auto mass conc (RBC) 32.3 g/dL Normal 32.0-35.0 The [facility] Comment on above: Performed By: #### 2 8548, 02779 ####[facility] [place] [address].[address] MCV Auto Entitic volume (RBC) 89.8 fL Normal 82.0-98.0 The [facility] Comment on above: Performed By: #### 4 3746, 17180 ####[place] [address] [facility].[address] Monocytes Auto #/vol (Bld) 0.8 10*3/uL Normal 0.1-1.0 The [facility] Comment on above: Performed By: #### 7 3992, 71175 ####[facility]3000 [facility].[address] MONOS 11.9 % Normal 5.0-12.0 The [facility] Comment on above: Performed By: #### 8 0311, 65042 ####[facility] Neutrophils/100 WBC Auto (Bld) 69.6 % Normal 40.0-72.0 The [facility] Comment on above: Performed By: #### 4 6447, 16648 ####[facility] Nucleated RBC/100 WBC Ratio (Bld) 0 % Normal 0-0 The [facility] Comment on above: Performed By: #### 4 6447, 21789 ####[facility]3000 [facility].[address] PLAT CNT 200 10*3/uL Normal 150-400 The [facility] Comment on above: Performed By: #### 4 6447, 11815 ####[facility]3000 [facility].[address] RBC Auto #/vol (Bld) 5.21 10*6/uL High 3.80-5.00 Th e [facility] Comment on above: Performed By: #### 4 5547, 05818 ####[facility]3000 [facility].[address] WBC Auto #/vol (Bld) 7.04 10*3/uL Normal 4.00-10.60 Th e [facility] Comment on above: Performed By: #### 4 6447, 77442 ####[facility]3000 [facility].[address] COMP METABOLIC PANELon 10-30 Albumin mass conc 4.1 g/dL Normal 3.5-5.7 The [facility] Comment on above: Performed By: #### 4 6447, 26092 ####[facility]3000 [facility].[address] ALKALINE PHOSPH 114 IU/L High 34-104 The [facility] Comment on above: Performed By: #### 4 6447, 65010 ####[facility]3000 [facility].[address] ALT enzyme act/vol 16 U/L Normal 7-52 The [facility] Comment on above: Performed By: #### 3 9741, 59722 ####[facility] [place] [address], [facility] AST enzyme act/vol 18 U/L Normal 13-39 The [facility] Comment on above: Performed By: #### 2 2956, 99009 ####[facility] [place] [address], [facility] Bilirubin mass conc 0.4 mg/dL Normal 0.3-1.0 The [facility] Comment on above: Performed By: #### 4 8448, 58637 ####[facility] [place] [address], [facility] Calcium mass conc 9.7 mg/dL Normal 8.6-10.3 [facility] Comment on above: Performed By: #### 3 9696, 43732 ####[facility] [place] [address], [facility] Chloride molar conc 105 mmol/L Normal 98-107 The [facility] Comment on above: Performed By: #### 1 4868, 15712 ####[facility] [place] [address], [facility] CO2 molar conc 28 mmol/L Normal 21-31 The [facility] Comment on above: Performed By: #### 6 1803, 68884 ####[facility] [place] [address], [place] Creatinine mass conc 0.82 mg/dL Normal 0.60-1.20 The [facility] Comment on above: Performed By: #### 1 2042, 02533 ####[facility] [id number], [place] GFR/1.73 sq M predicted among blacks MDRD vol rate/area (S/P/Bld) mL/min/{1.73_m2} Normal >60 The [facility] Comment on above: Performed By: #### 4 3069, 05590 ####[facility]3000 [facility] [place] [address], [facility] GFR/1.73 sq M predicted among non-blacks MDRD vol rate/area (S/P/Bld) mL/min/{1.73_m2} Normal >60 The [facility] Comment on above: Performed By: #### 4 3494, 69923 ####[facility]3000 [facility] [place] [address], [facility] Glucose mass conc 90 mg/dL Normal 70-100 The [facility] Comment on above: Performed By: #### 4 5964, 67837 ####[place] [address] [facility] [place] [address], [facility] Potassium molar conc 4.1 mmol/L Normal 3.5-5.1 The [facility] Comment on above: Performed By: #### 4 0541, 26189 ####[facility]3000 [facility] [place] [address], [facility] Protein mass conc 6.9 g/dL Normal 6.0-8.3 The [facility] Comment on above: Performed By: #### 4 6874, 40535 ####[facility] [place] [address], [facility] Sodium molar conc 138 mmol/L Normal 136-145 The [facility] Comment on above: Performed By: #### 4 8802, 94611 ####[facility] [place] [address], [facility] Urea nitrogen mass conc 16 mg/dL Normal 7-25 The [facility] Comment on above: Performed By: #### 4 6570, 90083 ####[facility] [place] [address], [facility] DIRECT BILIon 10-30-2017 Bilirubin.direct mass conc 0.0 mg/dL Normal 0.0-0.2 The [facility] Comment on above: Performed By: #### 4 5506, 86232, 67707, 85327, 56696, 86660 ####[facility] [place] [address], [facility] EVEROLIMUS 52602tx 8 EVEROLIMUS 6.0 ng/mL Normal The [facility] Comment on above: Result Comment: [...] the transplantcenter.Test developed and characteristics determined by [employer]. See Compliance Statement B: [employer]/CSPerformed by [employer],[address] [place] [address] iif.[employer], Leonid Antonio MD - Lab. Director LIPID PROFILEon 10-30-2017 Cholesterol in HDL mass conc 50 mg/dL Normal 23-92 The [facility] Comment on above: Result Comment: Slig ht variation in normal range could be due to gender and/or age.HDL CHOLESTEROL REFERENCE RANGE:20 years and older Cardiovascular Risk> or =60 mg/dL Tnujkctxl90 TO 59 mg/dL Low Risk<40 mg/dL High Risk Performed By: #### 4 5506, 16711, 67521, 02244, 24552, 07000 ####[facility] [place] [address], [facility] Cholesterol in LDL mass conc 85 mg/dL Normal 0-130 [facility] Comment on above: Result Comment: LDL IS A CALCULATIONLDL IS ONLY VALID IF THE TRIG IS LESS THAN 400. Performed By: #### 4 5506, 49366, 28468, 92879, 42102, 32821 ####[facility] [place] [address], [facility] Cholesterol mass conc 152 mg/dL Normal 120-200 The [facility] Comment on above: Result Comment: CHOL ESTEROL REFERENCE RANGE:20 YEARS AND OLDER CARDIOVASCULAR RISKLess than 200 mg/dl Low Chgv964 to 239 mg/dl Borderline Icoa904 mg/dl and greater High Risk Performed By: #### 4 5506, 57065, 31645, 90601, 76404, 83623 ####[facility]3000 [facility] [place] [address], [facility] Cholesterol.total/Cho lesterol in HDL mass ratio 3.0 {ratio} Normal .0-4.5 [facility] Comment on above: Performed By: #### 4 5506, 04469, 45383, 94453, 29745, 86002 ####[facility] [place] [address], [facility] NON-HDL CHOLESTEROL 102 mg/dL Normal The [facility] Comment on above: Performed By: #### 4 5506, 16206, 89650, 60699, 14933, 68608 ####[facility]3000 [facility] [place] [address], [facility] Triglyceride mass conc 87 mg/dL Normal 40-149 The [facility] Comment on above: Result Comment: TRIG LYCERIDE REFERENCE RANGE:20 YEARS AND OLDER CARDIOVASCULAR RISKLESS THAN 150 mg/dl LOW [id number] TO 199 mg/dl BORDERLINE STSO333 mg/dl AND GREATER HIGH RISK Performed By: #### 4 5506, 86498, 30980, 67711, 19770, 24281 ####[facility]3000 [facility].[address] VLDL CHOL 17 mg/dL Normal 0-40 The [facility] Comment on above: Performed By: #### 4 5506, 48009, 55361, 26591, 89793, 38593 ####[facility]3000 [facility].[address] MAGNESIUM BLOODon 10-30-2017 Magnesium mass conc 1.9 mg/dL Normal 1.9-2.7 The [facility] Comment on above: Performed By: #### 4 5506, 41515, 85291, 98792, 42650, 78994 ####[facility]3000 [facility].[address] PHOSPHORUS BLOODon 8 Phosphate mass conc 3.7 mg/dL Normal 2.5-5.0 [facility] Comment on above: Performed By: #### 4 5506, 36833, 19610, 83205, 97132, 81349 ####[facility]3000 [facility].[address] TACROLIMUSon 10-30-2017 Tacrolimus mass conc (Bld) 7.1 ng/mL Normal 5.0-20.0 The [facility] Comment on above: Result Comment: The [employer] Tacrolimus assay is a delayed one-step immunoassayfor the quantitative determination of tacrolimus in human whole bloodusing the chemiluminescent microparticle immunoassay (CMIA) technologywith flexible assay protocols, referred to as Chemiflex. Performed By: #### 9 9914 ####[facility]3000 [facility].[address] URIC ACID BLOODon 10-30-2017 Urate mass conc 4.6 mg/dL Normal 2.3-6.6 The [facility] Comment on above: Performed By: #### 4 6447, 56027 ####[facility]3000 [facility].[address] CBC W/DIFFon 10-23-2017 ABS BASOPHILS 0.0 10*3/uL Normal 0.0-0.2 The [facility] Comment on above: Performed By: #### 4 9147, 25627 ####[facility]3000 [facility].[address] ABS IMM GRANS 0.1 10*3/uL Normal 0.0-0.2 The [facility] Comment on above: Performed By: #### 4 1447, 45689 ####[facility]3000 [facility].[address] ABS NEUTROPHILS 5.8 10*3/uL Normal 1.6-7.6 The [facility] Comment on above: Performed By: #### 4 5547, 78132 ####[facility]3000 [facility].[address] Basophils Auto #/vol (Bld) 0.2 % Normal 0.0-1.0 The [facility] Comment on above: Performed By: #### 4 3347, 25720 ####[facility]3000 [facility].[address] Eosinophils Auto #/vol (Bld) 0.1 10*3/uL Normal 0.0-0.5 The [facility] Comment on above: Performed By: #### 4 1947, 09414 ####[facility]3000 [facility].[address] Eosinophils/100 WBC Auto (Bld) 0.7 % Normal 0.0-6.0 The [facility] Comment on above: Performed By: #### 4 4047, 93284 ####[place] [address] [facility].[address] Erythrocyte distribution width Auto Ratio (RBC) 14.6 % Normal 11.5-15.0 The [facility] Comment on above: Performed By: #### 4 9034, 21466 ####[facility]3000 [facility].[address] Hematocrit Auto Volume Fraction (Bld) 44.2 % Normal 36.0-45.0 The [facility] Comment on above: Performed By: #### 4 8785, 75204 ####[facility]3000 [facility].[address] Hemoglobin mass conc (Bld) 14.2 g/dL Normal 12.0-15.0 The [facility] Comment on above: Performed By: #### 4 0121, 03895 ####[place] [address] [address] IMMATURE GRANS 1.4 % High 0.0-1.0 The [facility] Comment on above: Performed By: #### 1 0092, 48947 ####[address] Lymphocytes Auto #/vol (Bld) 2.1 10*3/uL Normal 1.2-4.0 The [facility] Comment on above: Performed By: #### 4 5403, 33266 ####[facility]3000 [facility].[address] Lymphocytes/100 WBC Auto (Bld) 22.5 % Normal 20.0-45.0 The [facility] Comment on above: Performed By: #### 4 3231, 67811 ####[facility]3000 [facility].[address] MCH Auto Entitic mass (RBC) 28.5 pg Normal 27.0-33.0 The [facility] Comment on above: Performed By: #### 8 9179, 10033 ####[facility]3000 [facility].[address] MCHC Auto mass conc (RBC) 32.1 g/dL Normal 32.0-35.0 The [facility] Comment on above: Performed By: #### 4 3894, 81612 ####[facility]3000 [facility].[address] MCV Auto Entitic volume (RBC) 88.8 fL Normal 82.0-98.0 The [facility] Comment on above: Performed By: #### 4 6513, 46010 ####[facility] [place] [address] Monocytes Auto #/vol (Bld) 1.1 10*3/uL High 0.1-1.0 The [facility] Comment on above: Performed By: #### 4 2340, 49802 ####[facility]3000 [facility].[address] MONOS 12.0 % Normal 5.0-12.0 The [facility] Comment on above: Performed By: #### 4 1900, 58492 ####[facility] Neutrophils/100 WBC Auto (Bld) 63.2 % Normal 40.0-72.0 The [facility] Comment on above: Performed By: #### 4 4476, 83015 ####[place] [address] [facility].[address] Nucleated RBC/100 WBC Ratio (Bld) 0 % Normal 0-0 The [facility] Comment on above: Performed By: #### 4 2910, 00460 ####[facility]3000 [facility].[address] PLAT CNT 241 10*3/uL Normal 150-400 The [facility] Comment on above: Performed By: #### 1 2725, 57747 ####[facility]3000 [facility] [place] [address], [facility] RBC Auto #/vol (Bld) 4.98 10*6/uL Normal 3.80-5.00 Th e [facility] Comment on above: Performed By: #### 4 6447, 54378 ####[facility]3000 [facility] [place] [address], [facility] WBC Auto #/vol (Bld) 9.14 10*3/uL Normal 4.00-10.60 Th e [facility] Comment on above: Performed By: #### 4 6447, 67801 ####[facility]3000 [facility].[address] COMP METABOLIC PANELon 10-23 Albumin mass conc 3.8 g/dL Normal 3.5-5.7 The [facility] Comment on above: Performed By: #### 4 6447, 70695 ####[facility]3000 [facility].[address] ALKALINE PHOSPH 96 IU/L Normal 34-104 [facility] Comment on above: Performed By: #### 4 6447, 72391 ####[facility]3000 [facility].[address] ALT enzyme act/vol 15 U/L Normal 7-52 [facility] Comment on above: Performed By: #### 4 6447, 95338 ####[facility]3000 [facility].[address] AST enzyme act/vol 13 U/L Normal 13-39 The [facility] Comment on above: Performed By: #### 4 6447, 03796 ####[facility]3000 [facility] [place] [address], [facility] Bilirubin mass conc 0.4 mg/dL Normal 0.3-1.0 [facility] Comment on above: Performed By: #### 4 6447, 58839 ####[facility] [place] [address], [place] Calcium mass conc 9.2 mg/dL Normal 8.6-10.3 [facility] Comment on above: Performed By: #### 4 6447, 73576 ####[facility] [place] [address], [place] Chloride molar conc 102 mmol/L Normal 98-107 [facility] Comment on above: Performed By: #### 4 6447, 34766 ####[facility] [place] [address], [place] CO2 molar conc 29 mmol/L Normal 21-31 The [facility] Comment on above: Performed By: #### 4 0347, 30272 ####[facility] [place] [address], [place] Creatinine mass conc 0.80 mg/dL Normal 0.60-1.20 [facility] Comment on above: Performed By: #### 4 1724, 99966 ####[facility] [place] [address], [place] GFR/1.73 sq M predicted among blacks MDRD vol rate/area (S/P/Bld) mL/min/{1.73_m2} Normal >60 The [facility] Comment on above: Performed By: #### 4 4113, 96317 ####[facility] [place] [address], [place] GFR/1.73 sq M predicted among non-blacks MDRD vol rate/area (S/P/Bld) mL/min/{1.73_m2} Normal >60 The [facility] Comment on above: Performed By: #### 6 6947, 64364 ####[facility] [place] [address], [place] Glucose mass conc 85 mg/dL Normal 70-100 The [facility] Comment on above: Performed By: #### 4 6447, 70993 ####[facility]3000 [facility].[address] Potassium molar conc 3.3 mmol/L Low 3.5-5.1 The [facility] Comment on above: Performed By: #### 4 6447, 73958 ####[facility] Protein mass conc 6.5 g/dL Normal 6.0-8.3 The [facility] Comment on above: Performed By: #### 4 6447, 65957 ####[facility] Sodium molar conc 139 mmol/L Normal 136-145 The [facility] Comment on above: Performed By: #### 4 6447, 37233 ####[facility]3000 [facility].[address] Urea nitrogen mass conc 18 mg/dL Normal 7-25 The [facility] Comment on above: Performed By: #### 4 6447, 74835 ####[facility]3000 [facility].[address] DIRECT BILIon 10-23-2017 Bilirubin.direct mass conc 0.1 mg/dL Normal 0.0-0.2 The [facility] Comment on above: Performed By: #### 4 6447, 12802 ####[facility]3000 [facility].[address] EVEROLIMUS 24294lj 8 EVEROLIMUS 4.0 ng/mL Normal The [facility] Comment on above: Result Comment: [...] the transplantcenter.Test developed and characteristics determined by [employer] [facility]. See Compliance Statement B: [employer]/CSPerformed by [employer],[address] [place] [id number] gib.[employer], Leonid Antonio MD - Lab. Director LIPID PROFILEon 10-23-2017 Cholesterol in HDL mass conc 53 mg/dL Normal 23-92 The [facility] Comment on above: Result Comment: Slig ht variation in normal range could be due to gender and/or age.HDL CHOLESTEROL REFERENCE RANGE:20 years and older Cardiovascular Risk> or =60 mg/dL Ehvxjoxwa62 TO 59 mg/dL Low Risk<40 mg/dL High Risk Performed By: #### 3 1504, 40959 ####[facility]3000 [facility].[address] Cholesterol in LDL mass conc 68 mg/dL Normal 0-130 The [facility] Comment on above: Result Comment: LDL IS A CALCULATIONLDL IS ONLY VALID IF THE TRIG IS LESS THAN 400. Performed By: #### 5 8192, 28696 ####[facility] Cholesterol mass conc 135 mg/dL Normal 120-200 The [facility] Comment on above: Result Comment: CHOL ESTEROL REFERENCE RANGE:20 YEARS AND OLDER CARDIOVASCULAR RISKLess than 200 mg/dl Low Syqu138 to 239 mg/dl Borderline Bbxn150 mg/dl and greater High Risk Performed By: #### 4 5419, 71078 ####[facility]3000 [facility].[address] Cholesterol.total/Cho lesterol in HDL mass ratio 2.5 {ratio} Normal .0-4.5 The [facility] Comment on above: Performed By: #### 4 2743, 25068 ####[facility]3000 [facility].[address] NON-HDL CHOLESTEROL 82 mg/dL Normal The [facility] Comment on above: Performed By: #### 4 1452, 40030 ####[facility]3000 [facility].[address] Triglyceride mass conc 72 mg/dL Normal 40-149 The [facility] Comment on above: Result Comment: TRIG LYCERIDE REFERENCE RANGE:20 YEARS AND OLDER CARDIOVASCULAR RISKLESS THAN 150 mg/dl LOW [id number] TO 199 mg/dl BORDERLINE VOJM647 mg/dl AND GREATER HIGH RISK Performed By: #### 4 0321, 55430 ####[facility]3000 [facility].[address] VLDL CHOL 14 mg/dL Normal 0-40 The [facility] Comment on above: Performed By: #### 4 9433, 05174 ####[facility]3000 [facility].[address] MAGNESIUM BLOODon 10-23-2017 Magnesium mass conc 1.8 mg/dL Low 1.9-2.7 The [facility] Comment on above: Performed By: #### 4 1243, 04322 ####[facility]3000 [facility].[address] PHOSPHORUS BLOODon 8 Phosphate mass conc 3.7 mg/dL Normal 2.5-5.0 The [facility] Comment on above: Performed By: #### 4 8893, 51480 ####[place] [address] [facility] [facility].[address] TACROLIMUSon 10-23-2017 Tacrolimus mass conc (Bld) 2.6 ng/mL Low 5.0-20.0 The [facility] Comment on above: Result Comment: The [employer] Tacrolimus assay is a delayed one-step immunoassayfor the quantitative determination of tacrolimus in human whole bloodusing the chemiluminescent microparticle immunoassay (CMIA) technologywith flexible assay protocols, referred to as Chemiflex. Performed By: #### 4 6447, 56862 ####[address] URIC ACID BLOODon 10-23-2017 Urate mass conc 4.3 mg/dL Normal 2.3-6.6 The [facility] Comment on above: Performed By: #### 4 6447, 53554 ####[address] CBC W/DIFFon 09-25-2017 ABS BASOPHILS 0.0 10*3/uL Normal 0.0-0.2 The [facility] Comment on above: Performed By: #### 4 1000, 23569, 92681, 99778, 27657, 51238 ####[address] ABS IMM GRANS 0.0 10*3/uL Normal 0.0-0.2 The [facility] Comment on above: Performed By: #### 4 1000, 37339, 50174, 16842, 57138, 64576 ####[address] ABS NEUTROPHILS 4.4 10*3/uL Normal 1.6-7.6 The [facility] Comment on above: Performed By: #### 4 1000, 73731, 17132, 49602, 10681, 46525 ####[address] Basophils Auto #/vol (Bld) 0.2 % Normal 0.0-1.0 The [facility] Comment on above: Performed By: #### 4 1000, 27386, 41446, 80478, 63956, 28749 ####[place] [address] [facility].[address] Eosinophils Auto #/vol (Bld) 0.1 10*3/uL Normal 0.0-0.5 The [facility] Comment on above: Performed By: #### 4 1000, 66017, 87889, 87071, 95667, 78012 ####[place] [address] [facility].[address] Eosinophils/100 WBC Auto (Bld) 2.2 % Normal 0.0-6.0 The [facility] Comment on above: Performed By: #### 4 1000, 24545, 94184, 84220, 89675, 96880 ####[place] [address] [facility].[address] Erythrocyte distribution width Auto Ratio (RBC) 14.0 % Normal 11.5-15.0 The [facility] Comment on above: Performed By: #### 4 1000, 27697, 20371, 77779, 52705, 04408 ####[place] [address] [facility].[address] Hematocrit Auto Volume Fraction (Bld) 44.8 % Normal 36.0-45.0 The [facility] Comment on above: Performed By: #### 4 1000, 54375, 05311, 62787, 16011, 89640 ####[facility].[address] Hemoglobin mass conc (Bld) 14.5 g/dL Normal 12.0-15.0 The [facility] Comment on above: Performed By: #### 4 1000, 68175, 55726, 96266, 91606, 42187 ####[facility].[address] IMMATURE GRANS 0.3 % Normal 0.0-1.0 The [facility] Comment on above: Performed By: #### 4 1000, 83137, 18660, 27250, 77137, 72794 ####[facility].[address] Lymphocytes Auto #/vol (Bld) 1.1 10*3/uL Low 1.2-4.0 The [facility] Comment on above: Performed By: #### 4 1000, 91005, 83848, 40094, 03568, 02868 ####[facility].[address] Lymphocytes/100 WBC Auto (Bld) 17.0 % Low 20.0-45.0 The [facility] Comment on above: Performed By: #### 4 1000, 15225, 57894, 95418, 93155, 94445 ####[facility].[address] MCH Auto Entitic mass (RBC) 28.6 pg Normal 27.0-33.0 The [facility] Comment on above: Performed By: #### 4 1000, 82438, 14262, 37373, 78925, 10191 ####[facility].[address] MCHC Auto mass conc (RBC) 32.4 g/dL Normal 32.0-35.0 The [facility] Comment on above: Performed By: #### 4 1000, 03406, 16776, 96642, 29641, 93398 ####[facility].[address] MCV Auto Entitic volume (RBC) 88.4 fL Normal 82.0-98.0 The [facility] Comment on above: Performed By: #### 4 1000, 78908, 47578, 36114, 86539, 60179 ####[facility] [place] [address], [facility] Monocytes Auto #/vol (Bld) 0.7 10*3/uL Normal 0.1-1.0 [facility] Comment on above: Performed By: #### 4 1000, 94598, 33685, 00447, 44947, 91713 ####[facility] MONOS 11.5 % Normal 5.0-12.0 The [facility] Comment on above: Performed By: #### 4 1000, 07377, 07688, 89458, 44069, 32821 ####[facility] Neutrophils/100 WBC Auto (Bld) 68.8 % Normal 40.0-72.0 [facility] Comment on above: Performed By: #### 4 1000, 06147, 55023, 63959, 61671, 66481 ####[facility] Nucleated RBC/100 WBC Ratio (Bld) 0 % Normal 0-0 The [facility] Comment on above: Performed By: #### 4 1000, 49906, 66051, 79283, 55508, 53451 ####[facility] [place] [address], [facility] PLAT CNT 212 10*3/uL Normal 150-400 The [facility] Comment on above: Performed By: #### 4 1000, 53674, 87185, 17328, 11133, 07014 ####[facility] [place] [address], [facility] RBC Auto #/vol (Bld) 5.07 10*6/uL High 3.80-5.00 [facility] Comment on above: Performed By: #### 4 1000, 88192, 12617, 22184, 55823, 38663 ####[facility].[address] WBC Auto #/vol (Bld) 6.34 10*3/uL Normal 4.00-10.60 Th e [facility] Comment on above: Performed By: #### 4 1000, 09004, 87531, 88100, 60503, 10333 ####[facility] COMP METABOLIC PANELon 09-25 Albumin mass conc 4.0 g/dL Normal 3.5-5.7 The [facility] Comment on above: Performed By: #### 4 6447, 81876 ####[facility].[address] ALKALINE PHOSPH 112 IU/L High 34-104 [facility] Comment on above: Performed By: #### 4 6447, 41108 ####[facility].[address] ALT enzyme act/vol 11 U/L Normal 7-52 [facility] Comment on above: Performed By: #### 4 6447, 24471 ####[facility].[address] AST enzyme act/vol 17 U/L Normal 13-39 The Un [facility] Comment on above: Performed By: #### 4 6447, 39001 ####[facility] [place] [address], [facility] Bilirubin mass conc 0.5 mg/dL Normal 0.3-1.0 [facility] Comment on above: Performed By: #### 4 6447, 00629 ####[facility] [place] [address], [place] Calcium mass conc 9.6 mg/dL Normal 8.6-10.3 The [facility] Comment on above: Performed By: #### 4 2644, 29763 ####[facility] [place] [address], [place] Chloride molar conc 104 mmol/L Normal 98-107 [facility] Comment on above: Performed By: #### 4 3297, 63282 ####[facility] [place] [address], [place] CO2 molar conc 28 mmol/L Normal 21-31 The [facility] Comment on above: Performed By: #### 4 3049, 59423 ####[facility] [place] [address], [place] Creatinine mass conc 0.83 mg/dL Normal 0.60-1.20 The [facility] Comment on above: Performed By: #### 8 8957, 29050 ####[facility] [place] [address], [place] GFR/1.73 sq M predicted among blacks MDRD vol rate/area (S/P/Bld) mL/min/{1.73_m2} Normal >60 The [facility] Comment on above: Performed By: #### 4 0559, 29905 ####[facility] [place] [address], [place] GFR/1.73 sq M predicted among non-blacks MDRD vol rate/area (S/P/Bld) mL/min/{1.73_m2} Normal >60 The [facility] Comment on above: Performed By: #### 6 0202, 26472 ####[facility] [place] [address], [place] Glucose mass conc 91 mg/dL Normal 70-100 The [facility] Comment on above: Performed By: #### 4 6447, 62583 ####[facility].[address] Potassium molar conc 3.9 mmol/L Normal 3.5-5.1 The [facility] Comment on above: Performed By: #### 4 6447, 19026 ####[facility].[address] Protein mass conc 7.0 g/dL Normal 6.0-8.3 The [facility] Comment on above: Performed By: #### 4 6447, 53582 ####[facility].[address] Sodium molar conc 140 mmol/L Normal 136-145 The [facility] Comment on above: Performed By: #### 4 6447, 27704 ####[facility].[address] Urea nitrogen mass conc 15 mg/dL Normal 7-25 The [facility] Comment on above: Performed By: #### 4 6447, 80804 ####[place] [address] [facility].[address] DIRECT BILIon 09-25-2017 Bilirubin.direct mass conc 0.1 mg/dL Normal 0.0-0.2 The [facility] Comment on above: Performed By: #### 4 6447, 19762 ####[place] [address] [facility].[address] EVEROLIMUS 80298tn 8 EVEROLIMUS 5.1 ng/mL Normal The [facility] Comment on above: Result Comment: [...] the transplantcenter.Test developed and characteristics determined by [employer]. See Compliance Statement B: [employer]/CSPerformed by [employer],[address] [place] [id number] iiu.[employer], Leonid Antonio MD - Lab. Director LIPID PROFILEon 09-25-2017 Cholesterol in HDL mass conc 48 mg/dL Normal 23-92 [facility] Comment on above: Result Comment: Slig ht variation in normal range could be due to gender and/or age.HDL CHOLESTEROL REFERENCE RANGE:20 years and older Cardiovascular Risk> or =60 mg/dL Ewxhterag07 TO 59 mg/dL Low Risk<40 mg/dL High Risk Performed By: #### 4 1499, 29035 ####[facility] Cholesterol in LDL mass conc 69 mg/dL Normal 0-130 The [facility] Comment on above: Result Comment: LDL IS A CALCULATIONLDL IS ONLY VALID IF THE TRIG IS LESS THAN 400. Performed By: #### 4 9554, 99438 ####[facility] [place] [address], [facility] Cholesterol mass conc 138 mg/dL Normal 120-200 The [facility] Comment on above: Result Comment: CHOL ESTEROL REFERENCE RANGE:20 YEARS AND OLDER CARDIOVASCULAR RISKLess than 200 mg/dl Low Mldz106 to 239 mg/dl Borderline Ojle988 mg/dl and greater High Risk Performed By: #### 4 0265, 90165 ####[facility].[address] Cholesterol.total/Cho lesterol in HDL mass ratio 2.9 {ratio} Normal .0-4.5 The [facility] Comment on above: Performed By: #### 4 3840, 41118 ####[facility] NON-HDL CHOLESTEROL 90 mg/dL Normal The [facility] Comment on above: Performed By: #### 4 5947, 79781 ####[facility].[address] Triglyceride mass conc 103 mg/dL Normal 40-149 The [facility] Comment on above: Result Comment: TRIG LYCERIDE REFERENCE RANGE:20 YEARS AND OLDER CARDIOVASCULAR RISKLESS THAN 150 mg/dl LOW [id number] TO 199 mg/dl BORDERLINE IPTC637 mg/dl AND GREATER HIGH RISK Performed By: #### 4 2936, 67054 ####[facility].[address] VLDL CHOL 21 mg/dL Normal 0-40 The [facility] Comment on above: Performed By: #### 4 6343, 75207 ####[facility].[address] MAGNESIUM BLOODon 09-25-2017 Magnesium mass conc 1.8 mg/dL Low 1.9-2.7 The [facility] Comment on above: Performed By: #### 4 0307, 70491 ####[facility].[address] PHOSPHORUS BLOODon 8 Phosphate mass conc 3.4 mg/dL Normal 2.5-5.0 The [facility] Comment on above: Performed By: #### 4 3858, 69367 ####[facility].[address] TACROLIMUSon 09-25-2017 Tacrolimus mass conc (Bld) 3.6 ng/mL Low 5.0-20.0 The [facility] Comment on above: Result Comment: The [employer] SPECIALIST Tacrolimus assay is a delayed one-step immunoassayfor the quantitative determination of tacrolimus in human whole bloodusing the chemiluminescent microparticle immunoassay (CMIA) technologywith flexible assay protocols, referred to as Chemiflex. Performed By: #### 4 6447, 16576 ####[facility] URIC ACID BLOODon 09-25-2017 Urate mass conc 4.7 mg/dL Normal 2.3-6.6 The [facility] Comment on above: Performed By: #### 4 6447, 30310 ####[place] [address] [address] BK VIRUS QUANTITATION PCR BL OODon 08-26-2017 BKV QUANT PCR Not detected Normal The [facility] Comment on above: Result Comment: Meth od: BK virus was measured by quantitative polymerase chain reactionusing a TaqMan probe targeting the polyomavirus BK CASING CLEANER-1 gene.The lower limit of quantitation of the assay is 500 copies of BK genomeper milliliter of plasma or urine, and any detectable BK DNA below thatlevel is reported as: Detected, <500 copies/ml. Serial BK virusmeasurement can be used to monitor disease activity. (Reference:Kelsie vaughanl. J CLIN MICRO 2004; 42:4908-5867).This test was developed and its performance characteristics determinedby the [facility]. It has not been approvedby the [place] Food and Drug Administration. However, such approval is notrequired for clinical implementation, and test results have been shownto be clinically useful. This laboratory is CAP accredited and CLIAcertified to perform high complexity testing. Performed By: #### 4 1000, 93660, 42534, 46876, 05438, 42458 ####[facility] LOG 10 COPIES Not detected Normal The [facility] Comment on above: Performed By: #### 4 1000, 17128, 88811, 13827, 92875, 74991 ####[facility].[address] CBC W/DIFFon 08-26-2017 ABS BASOPHILS 0.0 10*3/uL Normal 0.0-0.2 The [facility] Comment on above: Performed By: #### 4 1000, 49045, 51008, 11619, 91076, 46772 ####[facility].[address] ABS IMM GRANS 0.0 10*3/uL Normal 0.0-0.2 The [facility] Comment on above: Performed By: #### 4 1000, 74356, 80414, 66667, 03795, 18281 ####[facility].[address] ABS NEUTROPHILS 4.5 10*3/uL Normal 1.6-7.6 The [facility] Comment on above: Performed By: #### 4 1000, 52297, 59452, 83268, 91803, 62552 ####[facility].[address] Basophils Auto #/vol (Bld) 0.2 % Normal 0.0-1.0 The [facility] Comment on above: Performed By: #### 4 1000, 96044, 25201, 64099, 52818, 53355 ####[facility].[address] Eosinophils Auto #/vol (Bld) 0.2 10*3/uL Normal 0.0-0.5 The [facility] Comment on above: Performed By: #### 4 1000, 32552, 41539, 52607, 64289, 50003 ####[facility].[address] Eosinophils/100 WBC Auto (Bld) 2.4 % Normal 0.0-6.0 The [facility] Comment on above: Performed By: #### 4 1000, 87357, 49609, 63530, 71979, 24875 ####[facility] Erythrocyte distribution width Auto Ratio (RBC) 14.0 % Normal 11.5-15.0 The [facility] Comment on above: Performed By: #### 4 1000, 54491, 96375, 60191, 38315, 71884 ####[facility] Hematocrit Auto Volume Fraction (Bld) 44.9 % Normal 36.0-45.0 The [facility] Comment on above: Performed By: #### 4 1000, 06647, 70148, 85601, 07120, 57764 ####[facility] Hemoglobin mass conc (Bld) 14.9 g/dL Normal 12.0-15.0 The [facility] Comment on above: Performed By: #### 4 1000, 02874, 10903, 69632, 45563, 56460 ####[facility] IMMATURE GRANS 0.5 % Normal 0.0-1.0 The [facility] Comment on above: Performed By: #### 4 1000, 07305, 39450, 00976, 40934, 74868 ####[facility] Lymphocytes Auto #/vol (Bld) 1.0 10*3/uL Low 1.2-4.0 The [facility] Comment on above: Performed By: #### 4 1000, 34561, 83167, 04248, 99208, 36075 ####[facility] Lymphocytes/100 WBC Auto (Bld) 15.8 % Low 20.0-45.0 The [facility] Comment on above: Performed By: #### 4 1000, 50256, 77233, 49722, 47166, 24237 ####[facility].[address] MCH Auto Entitic mass (RBC) 29.1 pg Normal 27.0-33.0 The [facility] Comment on above: Performed By: #### 4 1000, 66806, 16798, 35430, 48883, 33051 ####[facility].[address] MCHC Auto mass conc (RBC) 33.2 g/dL Normal 32.0-35.0 The [facility] Comment on above: Performed By: #### 4 1000, 70386, 95960, 94275, 05517, 14227 ####[facility].[address] MCV Auto Entitic volume (RBC) 87.7 fL Normal 82.0-98.0 The [facility] Comment on above: Performed By: #### 4 1000, 92512, 79615, 53337, 63894, 95829 ####[place] [address] [facility].[address] Monocytes Auto #/vol (Bld) 0.7 10*3/uL Normal 0.1-1.0 The [facility] Comment on above: Performed By: #### 4 1000, 97323, 16505, 12359, 90649, 33279 ####[facility].[address] MONOS 10.6 % Normal 5.0-12.0 The [facility] Comment on above: Performed By: #### 4 1000, 19322, 38352, 06918, 32486, 91416 ####[facility] [place] [address], [facility] Neutrophils/100 WBC Auto (Bld) 70.5 % Normal 40.0-72.0 [facility] Comment on above: Performed By: #### 4 1000, 31690, 21036, 28492, 51244, 98199 ####[facility] Nucleated RBC/100 WBC Ratio (Bld) 0 % Normal 0-0 The [facility] Comment on above: Performed By: #### 4 1000, 38050, 04921, 43374, 71932, 79088 ####[facility] [place] [address], [facility] PLAT CNT 231 10*3/uL Normal 150-400 The [facility] Comment on above: Performed By: #### 4 1000, 08497, 78886, 90078, 66986, 16498 ####[facility].[address] RBC Auto #/vol (Bld) 5.12 10*6/uL High 3.80-5.00 Th [facility] Comment on above: Performed By: #### 4 1000, 12868, 13144, 25389, 08120, 75890 ####[facility].[address] WBC Auto #/vol (Bld) 6.32 10*3/uL Normal 4.00-10.60 Th [facility] Comment on above: Performed By: #### 4 1000, 77886, 97377, 80658, 41552, 58731 ####[facility] COMP METABOLIC PANELon 08-26 Albumin mass conc 4.3 g/dL Normal 3.5-5.7 [facility] Comment on above: Performed By: #### 4 1000, 43091, 24552, 37979, 20017, 67681 ####[facility] ALKALINE PHOSPH 125 IU/L High 34-104 The [facility] Comment on above: Performed By: #### 4 1000, 52830, 73980, 47377, 43339, 09314 ####[facility] ALT enzyme act/vol 17 U/L Normal 7-52 The [facility] Comment on above: Performed By: #### 4 1000, 74314, 63996, 27614, 70789, 62341 ####[facility] AST enzyme act/vol 23 U/L Normal 13-39 The [facility] Comment on above: Performed By: #### 4 1000, 92320, 65014, 20448, 36532, 92600 ####[facility] Bilirubin mass conc 0.4 mg/dL Normal 0.3-1.0 The [facility] Comment on above: Performed By: #### 4 1000, 02033, 23985, 44672, 41572, 36636 ####[facility] Calcium mass conc 9.6 mg/dL Normal 8.6-10.3 The [facility] Comment on above: Performed By: #### 4 1000, 52571, 30633, 64694, 87012, 56087 ####[facility] [place] [address], [facility] Chloride molar conc 104 mmol/L Normal 98-107 The [facility] Comment on above: Performed By: #### 4 1000, 86571, 23936, 98508, 49000, 66127 ####[facility] [place] [address], [facility] CO2 molar conc 27 mmol/L Normal 21-31 [facility] Comment on above: Performed By: #### 4 1000, 24999, 92782, 37626, 83924, 35173 ####[facility] [place] [address], [facility] Creatinine mass conc 0.77 mg/dL Normal 0.60-1.20 [facility] Comment on above: Performed By: #### 4 1000, 50307, 38150, 15422, 20786, 33500 ####[facility] [place] [address], [facility] GFR/1.73 sq M predicted among blacks MDRD vol rate/area (S/P/Bld) mL/min/{1.73_m2} Normal >60 The [facility] Comment on above: Performed By: #### 4 1000, 48976, 04735, 24793, 68700, 66650 ####[facility] [place] [address], [facility] GFR/1.73 sq M predicted among non-blacks MDRD vol rate/area (S/P/Bld) mL/min/{1.73_m2} Normal >60 The [facility] Comment on above: Performed By: #### 4 1000, 47176, 80064, 19218, 92405, 54778 ####[facility] [place] [address], [place] Glucose mass conc 95 mg/dL Normal 70-100 [facility] Comment on above: Performed By: #### 4 1000, 53444, 28937, 61080, 43926, 56264 ####[facility] [place] [address], [place] Potassium molar conc 4.1 mmol/L Normal 3.5-5.1 The [facility] Comment on above: Performed By: #### 4 1000, 40151, 71099, 00926, 74316, 39491 ####[facility] Protein mass conc 7.3 g/dL Normal 6.0-8.3 The [facility] Comment on above: Performed By: #### 4 1000, 54135, 60728, 61941, 60810, 34797 ####[facility] Sodium molar conc 139 mmol/L Normal 136-145 [facility] Comment on above: Performed By: #### 4 1000, 65522, 26704, 88129, 26909, 59296 ####[facility] Urea nitrogen mass conc 12 mg/dL Normal 7-25 The [facility] Comment on above: Performed By: #### 4 1000, 46927, 91370, 08725, 67091, 95681 ####[facility] DIRECT BILIon 08-26-2017 Bilirubin.direct mass conc 0.1 mg/dL Normal 0.0-0.2 The [facility] Comment on above: Performed By: #### 4 1000, 00349, 68685, 94136, 67041, 60810 ####[facility] EVEROLIMUS [id number] 8 EVEROLIMUS 5.6 ng/mL Normal The [facility] Comment on above: Result Comment: [...] the transplantcenter.Test developed and characteristics determined by [employer]. See Compliance Statement B: [employer]/CSPerformed by [employer],[address] [place] [address] [id number] duj.StyleUp, Leonid Antonio MD - Lab. Director HEMOGLOBIN A1Con 08-26-2017 Glucose mass conc 114 mg/dL Normal 70-126 [facility] [place] Comment on above: Performed By: #### 4 1000, 12309, 25550, 42216, 52971, 76988 ####[facility] [facility] [place] [address], [facility] Hemoglobin A1c/Hemoglobin.total mass fraction (Bld) 5.6 % Normal 4.0-6.0 [facility] Comment on above: Performed By: #### 4 1000, 19161, 13147, 72636, 12728, 90264 ####[facility] [facility] [place] [place] [address], [facility] LIPID PROFILEon 08-26-2017 Cholesterol in HDL mass conc 49 mg/dL Normal 23-92 [facility] Comment on above: Result Comment: Slig ht variation in normal range could be due to gender and/or age.HDL CHOLESTEROL REFERENCE RANGE:20 years and older Cardiovascular Risk> or =60 mg/dL [id number] TO 59 mg/dL Low Risk<40 mg/dL High Risk Performed By: #### 4 1000, 27359, 58814, 56367, 99182, 45706 ####[facility] [place] [address], [facility] Cholesterol in LDL mass conc 76 mg/dL Normal 0-130 [facility] Comment on above: Result Comment: LDL IS A CALCULATIONLDL IS ONLY VALID IF THE TRIG IS LESS THAN 400. Performed By: #### 4 1000, 44376, 05946, 85759, 68590, 46658 ####[facility] [place] [address], [facility] Cholesterol mass conc 152 mg/dL Normal 120-200 [facility] Comment on above: Result Comment: CHOL ESTEROL REFERENCE RANGE:20 YEARS AND OLDER CARDIOVASCULAR RISKLess than 200 mg/dl Low Galv402 to 239 mg/dl Borderline Zubd774 mg/dl and greater High Risk Performed By: #### 4 1000, 77387, 12801, 34742, 89278, 83924 ####[facility] [facility] [address], [facility] Cholesterol.total/Cho lesterol in HDL mass ratio 3.1 {ratio} Normal .0-4.5 [facility] Comment on above: Performed By: #### 4 1000, 64603, 51263, 34228, 00233, 83085 ####[facility] [facility] [address], [facility] NON-HDL CHOLESTEROL 103 mg/dL Normal The [facility] Comment on above: Performed By: #### 4 1000, 57589, 83498, 38169, 25308, 27178 ####[facility] [facility] [place] [address], [facility] Triglyceride mass conc 133 mg/dL Normal 40-149 [facility] Comment on above: Result Comment: TRIG LYCERIDE REFERENCE RANGE:20 YEARS AND OLDER CARDIOVASCULAR RISKLESS THAN 150 mg/dl LOW [id number] TO 199 mg/dl BORDERLINE SWJB144 mg/dl AND GREATER HIGH RISK Performed By: #### 4 1000, 61077, 16056, 44528, 34921, 61835 ####[facility] VLDL CHOL 27 mg/dL Normal 0-40 [facility] Comment on above: Performed By: #### 4 1000, 34179, 23370, 42615, 26708, 51236 ####[facility] MAGNESIUM BLOODon 08-26-2017 Magnesium mass conc 1.9 mg/dL Normal 1.9-2.7 [facility] Comment on above: Performed By: #### 4 1000, 43756, 63223, 00021, 26677, 11219 ####[facility].[address] PHOSPHORUS BLOODon 8 Phosphate mass conc 3.4 mg/dL Normal 2.5-5.0 [facility] Comment on above: Performed By: #### 4 1000, 27782, 09528, 40687, 69304, 63119 ####[facility].[address] TACROLIMUSon 08-26-2017 Tacrolimus mass conc (Bld) 4.3 ng/mL Low 5.0-20.0 [facility] Comment on above: Result Comment: The [employer] Tacrolimus assay is a delayed one-step immunoassayfor the quantitative determination of tacrolimus in human whole bloodusing the chemiluminescent microparticle immunoassay (CMIA) technologywith flexible assay protocols, referred to as Chemiflex. Performed By: #### 4 1000, 98240, 40112, 13876, 19840, 99644 ####[facility].[address] URIC ACID BLOODon 08-26-2017 Urate mass conc 4.6 mg/dL Normal 2.3-6.6 The [facility] Comment on above: Performed By: #### 4 1000, 46279, 86847, 30476, 66902, 26531 ####[facility] [facility].[address] CBC W/DIFFon 07-23-2017 ABS BASOPHILS 0.0 10*3/uL Normal 0.0-0.2 The [facility] Comment on above: Performed By: #### 4 1000, 83099, 11378, 44357, 34799, 19973 ####[facility] [facility].[address] ABS IMM GRANS 0.0 10*3/uL Normal 0.0-0.2 The [facility] Comment on above: Performed By: #### 4 1000, 52898, 28572, 43841, 74656, 38169 ####[facility] [facility].[address] ABS NEUTROPHILS 4.4 10*3/uL Normal 1.6-7.6 The [facility] Comment on above: Performed By: #### 4 1000, 53958, 99404, 80383, 71112, 90270 ####[facility] [facility].[address] Basophils Auto #/vol (Bld) 0.2 % Normal 0.0-1.0 [facility] Comment on above: Performed By: #### 4 1000, 40053, 11290, 24781, 90661, 11781 ####[facility] [facility].[address] Eosinophils Auto #/vol (Bld) 0.1 10*3/uL Normal 0.0-0.5 [facility] Comment on above: Performed By: #### 4 1000, 49076, 38517, 07464, 69909, 61394 ####[facility] [facility].[address] Eosinophils/100 WBC Auto (Bld) 2.1 % Normal 0.0-6.0 [facility] Comment on above: Performed By: #### 4 1000, 62722, 98973, 32277, 65022, 21344 ####[facility] [facility].[address] Erythrocyte distribution width Auto Ratio (RBC) 13.7 % Normal 11.5-15.0 [facility] Comment on above: Performed By: #### 4 1000, 71701, 22683, 76690, 48303, 91286 ####[facility] Hematocrit Auto Volume Fraction (Bld) 44.4 % Normal 36.0-45.0 The [facility] Comment on above: Performed By: #### 4 1000, 71736, 21223, 62725, 55139, 50676 ####[facility] [facility].[address] Hemoglobin mass conc (Bld) 14.7 g/dL Normal 12.0-15.0 [facility] Comment on above: Performed By: #### 4 1000, 51292, 00895, 74250, 67498, 74883 ####[facility] IMMATURE GRANS 0.5 % Normal 0.0-1.0 The [facility] Comment on above: Performed By: #### 4 1000, 08163, 92146, 68917, 47769, 56985 ####[facility] [facility].[address] Lymphocytes Auto #/vol (Bld) 1.0 10*3/uL Low 1.2-4.0 [facility] Comment on above: Performed By: #### 4 1000, 03516, 21756, 46141, 18756, 41633 ####[facility] Lymphocytes/100 WBC Auto (Bld) 15.5 % Low 20.0-45.0 [facility] Comment on above: Performed By: #### 4 1000, 22182, 84694, 23555, 56033, 15298 ####[facility] MCH Auto Entitic mass (RBC) 28.9 pg Normal 27.0-33.0 [facility] Comment on above: Performed By: #### 4 1000, 55167, 74479, 01517, 56365, 08230 ####[facility] MCHC Auto mass conc (RBC) 33.1 g/dL Normal 32.0-35.0 [facility] Comment on above: Performed By: #### 4 1000, 16661, 34511, 41405, 08310, 51011 ####[facility] MCV Auto Entitic volume (RBC) 87.4 fL Normal 82.0-98.0 [facility] Comment on above: Performed By: #### 4 1000, 63606, 86644, 96174, 72738, 67755 ####[facility] Monocytes Auto #/vol (Bld) 0.8 10*3/uL Normal 0.1-1.0 [facility] Comment on above: Performed By: #### 4 1000, 72025, 39856, 95756, 10964, 41599 ####[facility] MONOS 12.3 % High 5.0-12.0 [facility] Comment on above: Performed By: #### 4 1000, 12287, 66524, 64933, 96659, 67652 ####[facility] Neutrophils/100 WBC Auto (Bld) 69.4 % Normal 40.0-72.0 [facility] Comment on above: Performed By: #### 4 1000, 79598, 62765, 96311, 12447, 65962 ####[place] [address] [facility].[address] Nucleated RBC/100 WBC Ratio (Bld) 0 % Normal 0-0 [facility] Comment on above: Performed By: #### 4 1000, 54917, 09668, 59043, 69354, 05664 ####[address] PLAT CNT 218 10*3/uL Normal 150-400 The [facility] Comment on above: Performed By: #### 4 1000, 93423, 27681, 87431, 58200, 98917 ####[address] RBC Auto #/vol (Bld) 5.08 10*6/uL High 3.80-5.00 Th [facility] Comment on above: Performed By: #### 4 1000, 24534, 42396, 13816, 20472, 64032 ####[address] WBC Auto #/vol (Bld) 6.3 10*3/uL Normal 4.0-10.6 [facility] Comment on above: Performed By: #### 4 1000, 26973, 16284, 31000, 40390, 31609 ####[address] COMP METABOLIC PANELon 07-23 Albumin mass conc 4.2 g/dL Normal 3.5-5.7 [facility] Comment on above: Performed By: #### 4 1000, 26028, 56259, 52355, 73764, 40606 ####[facility] [place] [address], [facility] ALKALINE PHOSPH 113 IU/L High 34-104 The [facility] Comment on above: Performed By: #### 4 1000, 22616, 51955, 77248, 32333, 41401 ####[facility] [place] [address], [facility] ALT enzyme act/vol 23 U/L Normal 7-52 The [facility] Comment on above: Performed By: #### 4 1000, 10716, 47063, 91179, 04924, 78172 ####[facility] [facility] [place] [address], [facility] AST enzyme act/vol 25 U/L Normal 13-39 The [facility] Comment on above: Performed By: #### 4 1000, 99983, 82404, 59180, 20108, 22484 ####[facility] [place] [address], [facility] Bilirubin mass conc 0.6 mg/dL Normal 0.3-1.0 The [facility] Comment on above: Performed By: #### 4 1000, 51588, 61317, 75324, 67535, 17689 ####[facility] [facility] [place] [address], [facility] Calcium mass conc 9.6 mg/dL Normal 8.6-10.3 [facility] Comment on above: Performed By: #### 4 1000, 64504, 93813, 46437, 44105, 48528 ####[facility] [place] [address], [facility] Chloride molar conc 104 mmol/L Normal 98-107 The [facility] Comment on above: Performed By: #### 4 1000, 07137, 92436, 30398, 17471, 87100 ####[facility] [place] [address], [place] CO2 molar conc 25 mmol/L Normal 21-31 [facility] Comment on above: Performed By: #### 4 1000, 81587, 69463, 09408, 08200, 98650 ####[facility] [place] [address], [place] Creatinine mass conc 0.80 mg/dL Normal 0.60-1.20 [facility] Comment on above: Performed By: #### 4 1000, 51409, 10015, 41806, 35026, 32838 ####[facility] [place] [address], [place] GFR/1.73 sq M predicted among blacks MDRD vol rate/area (S/P/Bld) mL/min/{1.73_m2} Normal >60 The [facility] Comment on above: Performed By: #### 4 1000, 93358, 96332, 75356, 82918, 95746 ####[facility] [place] [address], [facility] GFR/1.73 sq M predicted among non-blacks MDRD vol rate/area (S/P/Bld) mL/min/{1.73_m2} Normal >60 The [facility] Comment on above: Performed By: #### 4 1000, 81435, 41094, 63143, 68333, 79626 ####[facility] [place] [address], [place] Glucose mass conc 91 mg/dL Normal 70-100 [facility] Comment on above: Performed By: #### 4 1000, 07933, 90159, 63687, 02094, 14424 ####[facility] [place] [address], [place] Potassium molar conc 4.0 mmol/L Normal 3.5-5.1 [facility] Comment on above: Performed By: #### 4 1000, 99338, 19163, 98127, 62736, 48016 ####[facility] Protein mass conc 6.8 g/dL Normal 6.0-8.3 [facility] Comment on above: Performed By: #### 4 1000, 58120, 54793, 71154, 04919, 83628 ####[facility] Sodium molar conc 140 mmol/L Normal 136-145 [facility] Comment on above: Performed By: #### 4 1000, 52763, 37499, 59613, 64476, 23381 ####[facility].[address] Urea nitrogen mass conc 16 mg/dL Normal 7-25 [facility] Comment on above: Performed By: #### 4 1000, 93519, 37874, 91146, 62233, 30715 ####[facility] [facility].[address] DIRECT BILIon 07-23-2017 Bilirubin.direct mass conc 0.2 mg/dL Normal 0.0-0.2 [facility] Comment on above: Performed By: #### 4 1000, 48270, 74418, 86951, 76052, 38437 ####[facility].[address] EVEROLIMUS 50333zo 8 EVEROLIMUS 5.3 ng/mL Normal The [facility] Comment on above: Result Comment: [...] the transplantcenter.Test developed and characteristics determined by [employer]. See Compliance Statement B: StyleUp/CSPerformed by [employer],[address] [place] [address] [id number] acl.StyleUp, Leonid Antonio MD - Lab. Director LIPID PROFILEon 07-23-2017 Cholesterol in HDL mass conc 45 mg/dL Normal 23-92 [facility] Comment on above: Result Comment: Slig ht variation in normal range could be due to gender and/or age.HDL CHOLESTEROL REFERENCE RANGE:20 years and older Cardiovascular Risk> or =60 mg/dL Lwabdiakt01 TO 59 mg/dL Low Risk<40 mg/dL High Risk Performed By: #### 4 1000, 96521, 94903, 68991, 82877, 21509 ####[facility] [facility].[address] Cholesterol in LDL mass conc 79 mg/dL Normal 0-130 [facility] Comment on above: Result Comment: LDL IS A CALCULATIONLDL IS ONLY VALID IF THE TRIG IS LESS THAN 400. Performed By: #### 4 1000, 51034, 89238, 94568, 18921, 03502 ####[facility] Cholesterol mass conc 141 mg/dL Normal 120-200 [facility] Comment on above: Result Comment: CHOL ESTEROL REFERENCE RANGE:20 YEARS AND OLDER CARDIOVASCULAR RISKLess than 200 mg/dl Low Nmib807 to 239 mg/dl Borderline Oyqv386 mg/dl and greater High Risk Performed By: #### 4 1000, 27542, 01510, 37745, 77448, 10785 ####[facility] Cholesterol.total/Cho lesterol in HDL mass ratio 3.1 {ratio} Normal .0-4.5 [facility] Comment on above: Performed By: #### 4 1000, 30097, 95666, 15080, 51435, 19295 ####[facility] NON-HDL CHOLESTEROL 96 mg/dL Normal The [facility] Comment on above: Performed By: #### 4 1000, 01893, 87848, 67507, 84776, 02478 ####[facility] Triglyceride mass conc 83 mg/dL Normal 40-149 The [facility] Comment on above: Result Comment: TRIG LYCERIDE REFERENCE RANGE:20 YEARS AND OLDER CARDIOVASCULAR RISKLESS THAN 150 mg/dl LOW [id number] TO 199 mg/dl BORDERLINE POUZ074 mg/dl AND GREATER HIGH RISK Performed By: #### 4 1000, 74300, 16103, 04445, 18801, 35468 ####[facility] VLDL CHOL 17 mg/dL Normal 0-40 [facility] Comment on above: Performed By: #### 4 1000, 28513, 74192, 38296, 93351, 59978 ####[facility] MAGNESIUM BLOODon 07-23-2017 Magnesium mass conc 2.0 mg/dL Normal 1.9-2.7 The [facility] Comment on above: Performed By: #### 4 1000, 02231, 06656, 16772, 36468, 44018 ####[facility] PHOSPHORUS BLOODon 8 Phosphate mass conc 4.0 mg/dL Normal 2.5-5.0 The [facility] Comment on above: Performed By: #### 4 1000, 63252, 02154, 20263, 55918, 88447 ####[address] TACROLIMUSon 07-23-2017 Tacrolimus mass conc (Bld) 4.6 ng/mL Low 5.0-20.0 The [facility] Comment on above: Result Comment: The [employer] Tacrolimus assay is a delayed one-step immunoassayfor the quantitative determination of tacrolimus in human whole bloodusing the chemiluminescent microparticle immunoassay (CMIA) technologywith flexible assay protocols, referred to as Chemiflex. Performed By: #### 4 1000, 39525, 87702, 87578, 75727, 53152 ####[place] [address] URIC ACID BLOODon 07-23-2017 Urate mass conc 4.7 mg/dL Normal 2.3-6.6 The [facility] Comment on above: Performed By: #### 4 1000, 12906, 59285, 51110, 61521, 07177 ####[place] [address] CBC W/DIFFon 06-20-2017 ABS BASOPHILS 0.0 10*3/uL Normal 0.0-0.2 The [facility] Comment on above: Performed By: #### 4 1000, 92758, 17444, 84259, 59110, 12979 ####[place] [address] ABS IMM GRANS 0.0 10*3/uL Normal 0.0-0.2 The [facility] Comment on above: Performed By: #### 4 1000, 57633, 31331, 45396, 79984, 81696 ####[facility].[address] ABS NEUTROPHILS 4.2 10*3/uL Normal 1.6-7.6 The [facility] Comment on above: Performed By: #### 4 1000, 47686, 23897, 96881, 65845, 03181 ####[facility].[address] Basophils Auto #/vol (Bld) 0.2 % Normal 0.0-1.0 The [facility] Comment on above: Performed By: #### 4 1000, 56339, 14266, 49622, 34264, 61437 ####[facility].[address] Eosinophils Auto #/vol (Bld) 0.1 10*3/uL Normal 0.0-0.5 The [facility] Comment on above: Performed By: #### 4 1000, 35942, 19499, 24599, 22039, 88198 ####[facility] [facility].[address] Eosinophils/100 WBC Auto (Bld) 1.5 % Normal 0.0-6.0 The [facility] Comment on above: Performed By: #### 4 1000, 70545, 48789, 41093, 55832, 71296 ####[facility] [facility].[address] Erythrocyte distribution width Auto Ratio (RBC) 13.4 % Normal 11.5-15.0 The [facility] Comment on above: Performed By: #### 4 1000, 83386, 97154, 69508, 96589, 49271 ####[facility].[address] Hematocrit Auto Volume Fraction (Bld) 44.9 % Normal 36.0-45.0 The [facility] Comment on above: Performed By: #### 4 1000, 62989, 12071, 83086, 05821, 38676 ####[facility] [facility].[address] Hemoglobin mass conc (Bld) 14.9 g/dL Normal 12.0-15.0 The [facility] Comment on above: Performed By: #### 4 1000, 64288, 33834, 23195, 51628, 00861 ####[facility] [facility].[address] IMMATURE GRANS 0.2 % Normal 0.0-1.[address] [facility] [place] [place] elisabeth [facility] Comment on above: Performed By: #### 4 1000, 73193, 26328, 78519, 78412, 41853 ####[place] [address] [facility].[address] Lymphocytes Auto #/vol (Bld) 1.1 10*3/uL Low 1.2-4.0 The [facility] Comment on above: Performed By: #### 4 1000, 18141, 16743, 91578, 33454, 45173 ####[place] [address] [facility].[address] Lymphocytes/100 WBC Auto (Bld) 17.4 % Low 20.0-45.0 The [facility] Comment on above: Performed By: #### 4 1000, 85089, 10687, 09693, 02433, 95882 ####[facility] [facility].[address] MCH Auto Entitic mass (RBC) 29.2 pg Normal 27.0-33.0 The [facility] Comment on above: Performed By: #### 4 1000, 12543, 93214, 58766, 81803, 40176 ####[facility] [facility].[address] MCHC Auto mass conc (RBC) 33.2 g/dL Normal 32.0-35.0 The [facility] Comment on above: Performed By: #### 4 1000, 75131, 89322, 74247, 47232, 19575 ####[facility] MCV Auto Entitic volume (RBC) 87.9 fL Normal 82.0-98.0 The [facility] Comment on above: Performed By: #### 4 1000, 49805, 48664, 52235, 50918, 43406 ####[facility] Monocytes Auto #/vol (Bld) 0.7 10*3/uL Normal 0.1-1.0 The [facility] Comment on above: Performed By: #### 4 1000, 39255, 87493, 16028, 38216, 89772 ####[facility] MONOS 11.3 % Normal 5.0-12.0 The [facility] Comment on above: Performed By: #### 4 1000, 75024, 58280, 80016, 16824, 71461 ####[facility] Neutrophils/100 WBC Auto (Bld) 69.4 % Normal 40.0-72.0 The [facility] Comment on above: Performed By: #### 4 1000, 73990, 72131, 29444, 69349, 66237 ####[facility] Nucleated RBC/100 WBC Ratio (Bld) 0 % Normal 0-0 The [facility] Comment on above: Performed By: #### 4 1000, 07618, 10264, 85207, 60902, 90452 ####[facility] PLAT CNT 198 10*3/uL Normal 150-400 The [facility] Comment on above: Performed By: #### 4 1000, 88991, 55664, 14021, 16647, 67740 ####[facility] RBC Auto #/vol (Bld) 5.11 10*6/uL High 3.80-5.00 Th e [facility] Comment on above: Performed By: #### 4 1000, 82764, 28735, 80065, 69658, 18601 ####[facility] WBC Auto #/vol (Bld) 6.0 10*3/uL Normal 4.0-10.6 [facility] Comment on above: Performed By: #### 4 1000, 78686, 70961, 63109, 89247, 90276 ####[facility] COMP METABOLIC PANELon 06-20 Albumin mass conc 4.4 g/dL Normal 3.5-5.7 The [facility] Comment on above: Performed By: #### 4 1000, 60252, 50283, 84443, 94884, 86827 ####[facility] ALKALINE PHOSPH 133 IU/L High 34-104 The [facility] Comment on above: Performed By: #### 4 1000, 79755, 64456, 97271, 59622, 32703 ####[facility] ALT enzyme act/vol 16 U/L Normal 7-52 The [facility] Comment on above: Performed By: #### 4 1000, 60178, 74723, 99879, 69571, 42537 ####[facility] [place] [address], [place] AST enzyme act/vol 21 U/L Normal 13-39 The [facility] Comment on above: Performed By: #### 4 1000, 47411, 79975, 33027, 19327, 39329 ####[facility] [place] [address], [facility] Bilirubin mass conc 0.8 mg/dL Normal 0.3-1.0 The [facility] Comment on above: Performed By: #### 4 1000, 27924, 13169, 84978, 88471, 39345 ####[facility], [place] [address], [place] Calcium mass conc 10.0 mg/dL Normal 8.6-10.3 [facility] [place] Comment on above: Performed By: #### 4 1000, 09635, 30689, 02597, 83729, 11339 ####[facility] [place] [address], [place] Chloride molar conc 106 mmol/L Normal 98-107 [facility] Comment on above: Performed By: #### 4 1000, 20596, 96586, 78218, 67163, 61446 ####[facility] [place] [address], [place] CO2 molar conc 27 mmol/L Normal 21-31 The [facility] Comment on above: Performed By: #### 4 1000, 63684, 05693, 88132, 56015, 56330 ####[facility] [place] [address], [place] Creatinine mass conc 0.74 mg/dL Normal 0.60-1.20 [facility] Comment on above: Performed By: #### 4 1000, 36770, 89976, 26048, 88652, 16206 ####[facility] [place] [address], [place] GFR/1.73 sq M predicted among blacks MDRD vol rate/area (S/P/Bld) mL/min/{1.73_m2} Normal >60 The [facility] Comment on above: Performed By: #### 4 1000, 71455, 56167, 62125, 12091, 73142 ####[facility] [place] [address], [facility] GFR/1.73 sq M predicted among non-blacks MDRD vol rate/area (S/P/Bld) mL/min/{1.73_m2} Normal >60 The [facility] Comment on above: Performed By: #### 4 1000, 86872, 35321, 09055, 07818, 40721 ####[facility] [place] [address], [facility] Glucose mass conc 95 mg/dL Normal 70-100 [facility] Comment on above: Performed By: #### 4 1000, 16586, 08981, 93955, 84304, 77641 ####[facility] [place] [address], [facility] Potassium molar conc 3.8 mmol/L Normal 3.5-5.1 [facility] Comment on above: Performed By: #### 4 1000, 77954, 67089, 58917, 90762, 06115 ####[facility] [place] [address], [facility] Protein mass conc 7.3 g/dL Normal 6.0-8.3 [facility] Comment on above: Performed By: #### 4 1000, 98182, 55137, 18076, 98079, 07904 ####[facility] [place] [address], [facility] Sodium molar conc 137 mmol/L Normal 136-145 [facility] Comment on above: Performed By: #### 4 1000, 13228, 42701, 90715, 12786, 74608 ####[facility] [place] [address], [facility] Urea nitrogen mass conc 16 mg/dL Normal 7-25 [facility] Comment on above: Performed By: #### 4 1000, 37016, 43884, 20684, 70086, 05590 ####[facility] DIRECT BILIon 06-20-2017 Bilirubin.direct mass conc 0.1 mg/dL Normal 0.0-0.2 [facility] Comment on above: Performed By: #### 4 1000, 49833, 55315, 85270, 49695, 86295 ####[facility] [facility].[address] EVEROLIMUS [id number] 8 EVEROLIMUS 6.7 ng/mL Normal The [facility] Comment on above: Result Comment: [...] the transplantcenter.Test developed and characteristics determined by [employer]. See Compliance Statement B: StyleUp/CSPerformed by [employer],[address] [place] [address] asq.[employer], Leonid Antonio MD - Lab. Director LIPID PROFILEon 06-20-2017 Cholesterol in HDL mass conc 45 mg/dL Normal 23-92 [facility] Comment on above: Result Comment: Slig ht variation in normal range could be due to gender and/or age.HDL CHOLESTEROL REFERENCE RANGE:20 years and older Cardiovascular Risk> or =60 mg/dL [id number] TO 59 mg/dL Low Risk<40 mg/dL High Risk Performed By: #### 4 1000, 70518, 45204, 34760, 93192, 56562 ####[facility] [place] [address], [facility] Cholesterol in LDL mass conc 58 mg/dL Normal 0-130 The [facility] Comment on above: Result Comment: LDL IS A CALCULATIONLDL IS ONLY VALID IF THE TRIG IS LESS THAN 400. Performed By: #### 4 1000, 38479, 39939, 01488, 90282, 36223 ####[facility] [place] [address], [facility] Cholesterol mass conc 126 mg/dL Normal 120-200 The [facility] Comment on above: Result Comment: CHOL ESTEROL REFERENCE RANGE:20 YEARS AND OLDER CARDIOVASCULAR RISKLess than 200 mg/dl Low [address]194 to 239 mg/dl Borderline Znzc034 mg/dl and greater High Risk Performed By: #### 4 1000, 41400, 51818, 24564, 50478, 35617 ####[facility] [place] [address], [place] Cholesterol.total/Cho lesterol in HDL mass ratio 2.8 {ratio} Normal .0-4.5 [facility] Comment on above: Performed By: #### 4 1000, 08835, 18075, 02181, 78485, 88507 ####[facility] [place] [address], [place] NON-HDL CHOLESTEROL 81 mg/dL Normal [facility] Comment on above: Performed By: #### 4 1000, 92244, 32442, 23539, 12847, 05837 ####[facility] Triglyceride mass conc 113 mg/dL Normal 40-149 The [facility] Comment on above: Result Comment: TRIG LYCERIDE REFERENCE RANGE:20 YEARS AND OLDER CARDIOVASCULAR RISKLESS THAN 150 mg/dl LOW [id number] TO 199 mg/dl BORDERLINE GPLN223 mg/dl AND GREATER HIGH RISK Performed By: #### 4 1000, 41186, 81217, 33311, 48960, 09080 ####[facility] VLDL CHOL 23 mg/dL Normal 0-40 [facility] Comment on above: Performed By: #### 4 1000, 31522, 20443, 86029, 98056, 59977 ####[facility] MAGNESIUM BLOODon 06-20-2017 Magnesium mass conc 1.9 mg/dL Normal 1.9-2.7 The [facility] Comment on above: Performed By: #### 4 1000, 00619, 70191, 40787, 78489, 84087 ####[facility] PHOSPHORUS BLOODon 8 Phosphate mass conc 3.1 mg/dL Normal 2.5-5.0 The [facility] Comment on above: Performed By: #### 4 1000, 13857, 51168, 67292, 54652, 21443 ####[facility] [place] [address], [facility] TACROLIMUSon 06-20-2017 Tacrolimus mass conc (Bld) 4.2 ng/mL Low 5.0-20.0 The [facility] Comment on above: Result Comment: The [facility] Tacrolimus assay is a delayed one-step immunoassayfor the quantitative determination of tacrolimus in human whole bloodusing the chemiluminescent microparticle immunoassay (CMIA) technologywith flexible assay protocols, referred to as Chemiflex. Performed By: #### 4 1000, 84606, 29604, 46634, 72926, 96852 ####[facility] [facility].[address] URIC ACID BLOODon 06-20-2017 Urate mass conc 4.3 mg/dL Normal 2.3-6.6 The [facility] Comment on above: Performed By: #### 4 1000, 73325, 46313, 62339, 38592, 60103 ####[facility] [facility].[address] BK VIRUS QUANTITATION PCR BL OODon 05-27-2017 BKV QUANT PCR Not detected Normal The [facility] Comment on above: Result Comment: Meth od: BK virus was measured by quantitative polymerase chain reactionusing a TaqMan probe targeting the polyomavirus BK CASING CLEANER-1 gene.The lower limit of quantitation of the assay is 500 copies of BK genomeper milliliter of plasma or urine, and any detectable BK DNA below thatlevel is reported as: Detected, <500 copies/ml. Serial BK virusmeasurement can be used to monitor disease activity. (Reference:Kelsie vaughanl. J CLIN MICRO 2004; 42:3447-1263).This test was developed and its performance characteristics determinedby the [facility]. It has not been approvedby the [place] Food and Drug Administration. However, such approval is notrequired for clinical implementation, and test results have been shownto be clinically useful. This laboratory is CAP accredited and CLIAcertified to perform high complexity testing. Performed By: #### 4 1000, 95821, 83437, 21068, 58371, 77697 ####[facility] [facility] [place] [address], [facility] LOG 10 COPIES Not detected Normal The [facility] Comment on above: Performed By: #### 4 1000, 37859, 87369, 26954, 14884, 08074 ####[facility] [facility] [place] [address], [facility] CBC W/DIFFon 05-27-2017 ABS BASOPHILS 0.0 10*3/uL Normal 0.0-0.2 The [facility] Comment on above: Performed By: #### 4 1000, 26391, 30390, 20460, 92774, 05855 ####[facility] [facility].[address] ABS IMM GRANS 0.0 10*3/uL Normal 0.0-0.2 The [facility] Comment on above: Performed By: #### 4 1000, 82531, 12780, 81004, 14964, 41614 ####[facility] ABS NEUTROPHILS 4.8 10*3/uL Normal 1.6-7.6 The [facility] Comment on above: Performed By: #### 4 1000, 42116, 74023, 49668, 85388, 07182 ####[facility] Basophils Auto #/vol (Bld) 0.0 % Normal 0.0-1.0 The [facility] Comment on above: Performed By: #### 4 1000, 63494, 33199, 33086, 63960, 39016 ####[facility] Eosinophils Auto #/vol (Bld) 0.1 10*3/uL Normal 0.0-0.5 The [facility] Comment on above: Performed By: #### 4 1000, 21119, 70967, 70188, 47662, 92861 ####[facility] Eosinophils/100 WBC Auto (Bld) 1.1 % Normal 0.0-6.0 The [facility] Comment on above: Performed By: #### 4 1000, 52993, 81475, 77418, 48162, 61785 ####[facility] Erythrocyte distribution width Auto Ratio (RBC) 13.5 % Normal 11.5-15.0 The [facility] Comment on above: Performed By: #### 4 1000, 50796, 74630, 76977, 66796, 13765 ####[facility] Hematocrit Auto Volume Fraction (Bld) 46.1 % High 36.0-45.0 The [facility] Comment on above: Performed By: #### 4 1000, 54627, 44411, 33612, 21521, 39047 ####[facility] [facility].[address] Hemoglobin mass conc (Bld) 15.0 g/dL Normal 12.0-15.0 The [facility] Comment on above: Performed By: #### 4 1000, 95732, 99808, 47089, 11872, 15534 ####[facility].[address] IMMATURE GRANS 0.3 % Normal 0.0-1.0 The [facility] Comment on above: Performed By: #### 4 1000, 38103, 25711, 59029, 71036, 79648 ####[facility].[address] Lymphocytes Auto #/vol (Bld) 1.0 10*3/uL Low 1.2-4.0 The [facility] Comment on above: Performed By: #### 4 1000, 04713, 67426, 40666, 08967, 30720 ####[facility] Lymphocytes/100 WBC Auto (Bld) 15.7 % Low 20.0-45.0 The [facility] Comment on above: Performed By: #### 4 1000, 86648, 38180, 62378, 71867, 26918 ####[facility] MCH Auto Entitic mass (RBC) 28.8 pg Normal 27.0-33.0 The [facility] Comment on above: Performed By: #### 4 1000, 04544, 59713, 49106, 20175, 59829 ####[facility] MCHC Auto mass conc (RBC) 32.5 g/dL Normal 32.0-35.0 The [facility] Comment on above: Performed By: #### 4 1000, 96176, 65266, 89708, 56096, 25020 ####[facility] MCV Auto Entitic volume (RBC) 88.7 fL Normal 82.0-98.0 The [facility] Comment on above: Performed By: #### 4 1000, 65245, 88864, 07260, 96615, 84925 ####[facility]3000 [facility].[address] Monocytes Auto #/vol (Bld) 0.8 10*3/uL Normal 0.1-1.0 The [facility] Comment on above: Performed By: #### 4 1000, 69512, 69095, 73285, 17939, 17008 ####[facility] MONOS 11.4 % Normal 5.0-12.0 The [facility] Comment on above: Performed By: #### 4 1000, 06239, 60646, 54219, 72610, 46414 ####[facility] Neutrophils/100 WBC Auto (Bld) 71.5 % Normal 40.0-72.0 The [facility] Comment on above: Performed By: #### 4 1000, 19094, 77207, 07286, 02636, 58064 ####[facility] [facility].[address] Nucleated RBC/100 WBC Ratio (Bld) 0 % Normal 0-0 [facility] Comment on above: Performed By: #### 4 1000, 98442, 09469, 27508, 54297, 25800 ####[facility] [facility].[address] PLAT CNT 199 10*3/uL Normal 150-400 The [facility] Comment on above: Performed By: #### 4 1000, 94477, 25880, 84285, 67231, 15849 ####[facility] [facility].[address] RBC Auto #/vol (Bld) 5.20 10*6/uL High 3.80-5.00 [facility] Comment on above: Performed By: #### 4 1000, 59825, 75112, 59810, 89842, 51551 ####[facility] [facility].[address] WBC Auto #/vol (Bld) 6.6 10*3/uL Normal 4.0-10.6 [facility] Comment on above: Performed By: #### 4 1000, 01044, 40589, 26666, 89596, 94885 ####[facility] [facility].[address] COMP METABOLIC PANELon 05-27 Albumin mass conc 4.6 g/dL Normal 3.5-5.7 The [facility] Comment on above: Performed By: #### 4 1000, 22523, 05367, 56794, 57888, 90935 ####[facility] ALKALINE PHOSPH 105 IU/L High 34-104 The [facility] Comment on above: Performed By: #### 4 1000, 57751, 53529, 37410, 67125, 92198 ####[facility] [place] [address], [place] ALT enzyme act/vol 20 U/L Normal 7-52 The [facility] Comment on above: Performed By: #### 4 1000, 77393, 69820, 05939, 23713, 33957 ####[facility] [place] [address], [place] AST enzyme act/vol 23 U/L Normal 13-39 The [facility] Comment on above: Performed By: #### 4 1000, 17718, 08591, 55081, 02401, 54047 ####[facility] [place] [address], [place] Bilirubin mass conc 0.6 mg/dL Normal 0.3-1.0 The [facility] Comment on above: Performed By: #### 4 1000, 00693, 68810, 77165, 20137, 86443 ####[facility] [place] [address], [place] Calcium mass conc 9.8 mg/dL Normal 8.6-10.3 [facility] Comment on above: Performed By: #### 4 1000, 02806, 90383, 72680, 99548, 41452 ####[facility] [place] [address], [place] Chloride molar conc 106 mmol/L Normal 98-107 The [facility] Comment on above: Performed By: #### 4 1000, 55348, 73003, 34137, 73091, 22250 ####[facility] [place] [address], [place] CO2 molar conc 30 mmol/L Normal 21-31 The [facility] Comment on above: Performed By: #### 4 1000, 30720, 27708, 01807, 69747, 82920 ####[facility] [place] [address], [facility] Creatinine mass conc 0.80 mg/dL Normal 0.60-1.20 [facility] Comment on above: Performed By: #### 4 1000, 60506, 66858, 61313, 53844, 13157 ####[facility] [place] [address], [facility] GFR/1.73 sq M predicted among blacks MDRD vol rate/area (S/P/Bld) mL/min/{1.73_m2} Normal >60 The [facility] Comment on above: Performed By: #### 4 1000, 45848, 23853, 32359, 54160, 31591 ####[facility] [place] [address], [facility] GFR/1.73 sq M predicted among non-blacks MDRD vol rate/area (S/P/Bld) mL/min/{1.73_m2} Normal >60 The [facility] Comment on above: Performed By: #### 4 1000, 73306, 87267, 28437, 18829, 94150 ####[facility] [place] [address], [facility] Glucose mass conc 90 mg/dL Normal 70-100 [facility] Comment on above: Performed By: #### 4 1000, 91143, 96346, 28204, 09055, 00192 ####[facility] [place] [address], [facility] Potassium molar conc 4.0 mmol/L Normal 3.5-5.1 [facility] Comment on above: Performed By: #### 4 1000, 38366, 53137, 86802, 69234, 37422 ####[facility] Protein mass conc 6.8 g/dL Normal 6.0-8.3 [facility] Comment on above: Performed By: #### 4 1000, 26115, 55920, 21314, 54880, 18970 ####[facility] Sodium molar conc 138 mmol/L Normal 136-145 [facility] Comment on above: Performed By: #### 4 1000, 44240, 96286, 14091, 39452, 97169 ####[facility] Urea nitrogen mass conc 14 mg/dL Normal 7-25 The [facility] Comment on above: Performed By: #### 4 1000, 00481, 96685, 94206, 84758, 72068 ####[facility] DIRECT BILIon 05-27-2017 Bilirubin.direct mass conc 0.1 mg/dL Normal 0.0-0.2 The [facility] Comment on above: Performed By: #### 4 1000, 61200, 03453, 18365, 20002, 84575 ####[facility] EVEROLIMUS [id number] 8 EVEROLIMUS 5.6 ng/mL Normal The [facility] Comment on above: Result Comment: [...] the transplantcenter.Test developed and characteristics determined by [employer]. See Compliance Statement B: [employer]/CSPerformed by [employer],[address] [place] [address] jdt.[employer], Leonid Antonio MD - Lab. Director HEMOGLOBIN A1Con 05-27-2017 Glucose mass conc 108 mg/dL Normal 70-126 [facility] Comment on above: Performed By: #### 4 1000, 58923, 31033, 15413, 08670, 18260 ####[facility] Hemoglobin A1c/Hemoglobin.total mass fraction (Bld) 5.4 % Normal 4.0-6.0 The [facility] Comment on above: Performed By: #### 4 1000, 97414, 48413, 29766, 84768, 76346 ####[facility] [facility] [place] [address], [facility] LIPID PROFILEon 05-27-2017 Cholesterol in HDL mass conc 39 mg/dL Normal 23-92 [facility] Comment on above: Result Comment: Slig ht variation in normal range could be due to gender and/or age.HDL CHOLESTEROL REFERENCE RANGE:20 years and older Cardiovascular Risk> or =60 mg/dL [id number] TO 59 mg/dL Low Risk<40 mg/dL High Risk Performed By: #### 4 1000, 88556, 50255, 00716, 85837, 90504 ####[facility] [facility] [place] [address], [place] Cholesterol in LDL mass conc 52 mg/dL Normal 0-130 The [facility] Comment on above: Result Comment: LDL IS A CALCULATIONLDL IS ONLY VALID IF THE TRIG IS LESS THAN 400. Performed By: #### 4 1000, 92464, 10063, 48107, 66504, 63746 ####[facility] [place] [address], [facility] Cholesterol mass conc 117 mg/dL Low 120-200 The [facility] Comment on above: Result Comment: CHOL ESTEROL REFERENCE RANGE:20 YEARS AND OLDER CARDIOVASCULAR RISKLess than 200 mg/dl Low Sjag028 to 239 mg/dl Borderline Wawh622 mg/dl and greater High Risk Performed By: #### 4 1000, 43566, 93094, 33539, 16524, 95232 ####[facility] [facility] [place] [address], [facility] Cholesterol.total/Cho lesterol in HDL mass ratio 3.0 {ratio} Normal .0-4.5 [facility] Comment on above: Performed By: #### 4 1000, 68298, 57353, 87953, 64336, 94573 ####[facility].[address] NON-HDL CHOLESTEROL 78 mg/dL Normal The [facility] Comment on above: Performed By: #### 4 1000, 33179, 45148, 91280, 15075, 59234 ####[facility] [facility] [place] [address], [facility] Triglyceride mass conc 131 mg/dL Normal 40-149 The [facility] Comment on above: Result Comment: TRIG LYCERIDE REFERENCE RANGE:20 YEARS AND OLDER CARDIOVASCULAR RISKLESS THAN 150 mg/dl LOW [id number] TO 199 mg/dl BORDERLINE UYTW264 mg/dl AND GREATER HIGH RISK Performed By: #### 4 1000, 43716, 58533, 04918, 59075, 47159 ####[facility] [place] [address], [facility] VLDL CHOL 26 mg/dL Normal 0-40 [facility] Comment on above: Performed By: #### 4 1000, 26947, 71710, 66950, 16293, 17039 ####[facility] [facility].[address] MAGNESIUM BLOODon 05-27-2017 Magnesium mass conc 2.1 mg/dL Normal 1.9-2.7 The [facility] Comment on above: Performed By: #### 4 1000, 68353, 29427, 86466, 03288, 93059 ####[facility] [facility].[address] PHOSPHORUS BLOODon 8 Phosphate mass conc 3.5 mg/dL Normal 2.5-5.0 The [facility] Comment on above: Performed By: #### 4 1000, 06890, 66696, 19103, 74573, 63673 ####[facility] [facility].[address] TACROLIMUSon 05-27-2017 Tacrolimus mass conc (Bld) 4.4 ng/mL Low 5.0-20.0 The [facility] Comment on above: Result Comment: The [employer] Tacrolimus assay is a delayed one-step immunoassayfor the quantitative determination of tacrolimus in human whole bloodusing the chemiluminescent microparticle immunoassay (CMIA) technologywith flexible assay protocols, referred to as Chemiflex. Performed By: #### 4 1000, 57191, 35356, 69951, 21755, 50392 ####[facility] URIC ACID BLOODon 05-27-2017 Urate mass conc 4.6 mg/dL Normal 2.3-6.6 The [facility] Comment on above: Performed By: #### 4 1000, 00908, 87791, 04736, 57392, 55963 ####[facility] CBC W/DIFFon 04-29-2017 ABS BASOPHILS 0.0 10*3/uL Normal 0.0-0.2 The [facility] Comment on above: Performed By: #### 4 1000, 29021, 52750, 94168, 91781, 12620 ####[facility] [facility].[address] ABS IMM GRANS 0.0 10*3/uL Normal 0.0-0.2 The [facility] Comment on above: Performed By: #### 4 1000, 52590, 95217, 79027, 35339, 70454 ####[facility] [facility].[address] ABS NEUTROPHILS 4.6 10*3/uL Normal 1.6-7.6 The [facility] Comment on above: Performed By: #### 4 1000, 51865, 13691, 61625, 41568, 19808 ####[facility] [facility].[address] Basophils Auto #/vol (Bld) 0.3 % Normal 0.0-1.0 The [facility] Comment on above: Performed By: #### 4 1000, 58428, 55745, 41362, 99619, 14237 ####[facility] [facility].[address] Eosinophils Auto #/vol (Bld) 0.1 10*3/uL Normal 0.0-0.5 The [facility] Comment on above: Performed By: #### 4 1000, 78740, 41333, 02523, 95269, 72184 ####[facility] [facility].[address] Eosinophils/100 WBC Auto (Bld) 1.7 % Normal 0.0-6.0 The [facility] Comment on above: Performed By: #### 4 1000, 04315, 74474, 17339, 29153, 04886 ####[facility] [facility].[address] Erythrocyte distribution width Auto Ratio (RBC) 13.7 % Normal 11.5-15.0 [facility] Comment on above: Performed By: #### 4 1000, 18445, 58059, 37097, 66835, 68334 ####[facility] [facility] Hematocrit Auto Volume Fraction (Bld) 45.0 % Normal 36.0-45.0 The [facility] Comment on above: Performed By: #### 4 1000, 39404, 62853, 95356, 11306, 80474 ####[facility] Hemoglobin mass conc (Bld) 14.9 g/dL Normal 12.0-15.0 The [facility] Comment on above: Performed By: #### 4 1000, 35558, 07902, 48191, 44597, 17010 ####[facility] IMMATURE GRANS 0.3 % Normal 0.0-1.0 The [facility] Comment on above: Performed By: #### 4 1000, 56267, 12468, 07553, 28319, 92904 ####[facility] Lymphocytes Auto #/vol (Bld) 0.9 10*3/uL Low 1.2-4.0 The [facility] Comment on above: Performed By: #### 4 1000, 91345, 24107, 69574, 59165, 89381 ####[facility] Lymphocytes/100 WBC Auto (Bld) 14.2 % Low 20.0-45.0 The [facility] Comment on above: Performed By: #### 4 1000, 32399, 46835, 04341, 36925, 91789 ####[facility] MCH Auto Entitic mass (RBC) 29.4 pg Normal 27.0-33.0 The [facility] Comment on above: Performed By: #### 4 1000, 94914, 38696, 49512, 41969, 19874 ####[facility] MCHC Auto mass conc (RBC) 33.1 g/dL Normal 32.0-35.0 The [facility] Comment on above: Performed By: #### 4 1000, 82942, 98067, 82901, 37535, 39924 ####[facility]3000 [facility].[address] MCV Auto Entitic volume (RBC) 88.8 fL Normal 82.0-98.0 The [facility] Comment on above: Performed By: #### 4 1000, 34799, 51592, 01200, 14985, 66394 ####[facility].[address] Monocytes Auto #/vol (Bld) 0.8 10*3/uL Normal 0.1-1.0 The [facility] Comment on above: Performed By: #### 4 1000, 17912, 61490, 36286, 83486, 90016 ####[facility]3000 [facility].[address] MONOS 12.2 % High 5.0-12.0 The [facility] Comment on above: Performed By: #### 4 1000, 27520, 51196, 55492, 99289, 47380 ####[facility]3000 [facility].[address] Neutrophils/100 WBC Auto (Bld) 71.3 % Normal 40.0-72.0 The [facility] Comment on above: Performed By: #### 4 1000, 26717, 05999, 55916, 14029, 26867 ####[facility] Nucleated RBC/100 WBC Ratio (Bld) 0 % Normal 0-0 [facility] Comment on above: Performed By: #### 4 1000, 52477, 53367, 66909, 62168, 67504 ####[facility] [place] [address], [facility] PLAT CNT 215 10*3/uL Normal 150-400 The [facility] Comment on above: Performed By: #### 4 1000, 46518, 44372, 09809, 12095, 00686 ####[facility]3000 [facility].[address] RBC Auto #/vol (Bld) 5.07 10*6/uL High 3.80-5.00 Th [facility] Comment on above: Performed By: #### 4 1000, 78187, 49627, 27366, 51517, 09329 ####[facility] WBC Auto #/vol (Bld) 6.5 10*3/uL Normal 4.0-10.6 [facility] Comment on above: Performed By: #### 4 1000, 40240, 35505, 52450, 96733, 92230 ####[facility] COMP METABOLIC PANELon 04-29 Albumin mass conc 4.4 g/dL Normal 3.5-5.7 The [facility] Comment on above: Performed By: #### 4 1000, 99282, 06002, 00335, 97550, 15465 ####[facility] ALKALINE PHOSPH 114 IU/L High 34-104 The [facility] Comment on above: Performed By: #### 4 1000, 17751, 38342, 16517, 87368, 95153 ####[facility] [place] [address], [place] ALT enzyme act/vol 15 U/L Normal 7-52 The [facility] Comment on above: Performed By: #### 4 1000, 06680, 34199, 87836, 17318, 23999 ####[facility] [place] [address], [place] AST enzyme act/vol 19 U/L Normal 13-39 The [facility] Comment on above: Performed By: #### 4 1000, 44581, 75700, 44991, 96342, 98281 ####[facility] [place] [address], [place] Bilirubin mass conc 0.7 mg/dL Normal 0.3-1.0 The [facility] Comment on above: Performed By: #### 4 1000, 70986, 92529, 43136, 61257, 46657 ####[facility] [place] [address], [place] Calcium mass conc 9.6 mg/dL Normal 8.6-10.3 The [facility] Comment on above: Performed By: #### 4 1000, 00943, 92839, 36252, 48795, 10415 ####[facility] [place] [address], [place] Chloride molar conc 103 mmol/L Normal 98-107 The [facility] Comment on above: Performed By: #### 4 1000, 54380, 44659, 30177, 94077, 32438 ####[facility] [place] [address], [place] CO2 molar conc 29 mmol/L Normal 21-31 The [facility] Comment on above: Performed By: #### 4 1000, 53225, 04988, 64140, 29425, 67283 ####[facility] [place] [address], [facility] Creatinine mass conc 0.79 mg/dL Normal 0.60-1.20 The [facility] Comment on above: Performed By: #### 4 1000, 11677, 81309, 00330, 61573, 11749 ####[facility] [place] [address], [place] GFR/1.73 sq M predicted among blacks MDRD vol rate/area (S/P/Bld) mL/min/{1.73_m2} Normal >60 The [facility] Comment on above: Performed By: #### 4 1000, 55162, 46375, 92224, 54775, 88098 ####[facility] [place] [address], [facility] GFR/1.73 sq M predicted among non-blacks MDRD vol rate/area (S/P/Bld) mL/min/{1.73_m2} Normal >60 The [facility] Comment on above: Performed By: #### 4 1000, 25892, 51757, 47051, 20753, 14862 ####[facility] [place] [address], [place] Glucose mass conc 90 mg/dL Normal 70-100 The [facility] Comment on above: Performed By: #### 4 1000, 89226, 60346, 01152, 56362, 20135 ####[facility] [place] [address], [place] Potassium molar conc 3.8 mmol/L Normal 3.5-5.1 The [facility] Comment on above: Performed By: #### 4 1000, 49882, 49782, 89740, 58139, 12555 ####[facility] [place] [address], [place] Protein mass conc 7.2 g/dL Normal 6.0-8.3 The [facility] Comment on above: Performed By: #### 4 1000, 53754, 47096, 51919, 07278, 24895 ####[facility] Sodium molar conc 140 mmol/L Normal 136-145 The [facility] Comment on above: Performed By: #### 4 1000, 11254, 35055, 65582, 90642, 24029 ####[facility] Urea nitrogen mass conc 15 mg/dL Normal 7-25 The [facility] Comment on above: Performed By: #### 4 1000, 47841, 30872, 41945, 17894, 54740 ####[facility] DIRECT BILIon 04-29-2017 Bilirubin.direct mass conc 0.1 mg/dL Normal 0.0-0.2 The [facility] Comment on above: Order Comment: Liver Battery conflicts with Comprehensive Metabolic Panel. Liver Battery canceled and Direct Bilirubin added. Performed By: #### 4 1000, 47961, 64292, 98928, 82155, 85181 ####[facility] EVEROLIMUS 12601yl 8 EVEROLIMUS 5.4 ng/mL Normal The [facility] Comment on above: Result Comment: [...] the transplantcenter.Test developed and characteristics determined by [facility]. See Compliance Statement B: StyleUp/CSPerformed by [employer],[address] [place] [address] [id number] pzw.[employer], Leonid Antonio MD - Lab. Director LIPID PROFILEon 04-29-2017 Cholesterol in HDL mass conc 49 mg/dL Normal 23-92 The [facility] Comment on above: Result Comment: Slig ht variation in normal range could be due to gender and/or age.HDL CHOLESTEROL REFERENCE RANGE:20 years and older Cardiovascular Risk> or =60 mg/dL [id number] TO 59 mg/dL Low Risk<40 mg/dL High Risk Performed By: #### 4 1000, 96300, 37133, 33876, 34792, 62473 ####[facility] Cholesterol in LDL mass conc 52 mg/dL Normal 0-130 The [facility] Comment on above: Result Comment: LDL IS A CALCULATIONLDL IS ONLY VALID IF THE TRIG IS LESS THAN 400. Performed By: #### 4 1000, 15387, 96695, 23184, 05558, 65452 ####[facility] [place] [address], [facility] Cholesterol mass conc 122 mg/dL Normal 120-200 The [facility] Comment on above: Result Comment: CHOL ESTEROL REFERENCE RANGE:20 YEARS AND OLDER CARDIOVASCULAR RISKLess than 200 mg/dl Low Vfmt405 to 239 mg/dl Borderline [id number] mg/dl and greater High Risk Performed By: #### 4 1000, 89625, 62452, 78685, 25017, 21725 ####[facility]3000 [facility].[address] Cholesterol.total/Cho lesterol in HDL mass ratio 2.5 {ratio} Normal .0-4.5 The [facility] Comment on above: Performed By: #### 4 1000, 11820, 02146, 09946, 11573, 07375 ####[facility]3000 [facility].[address] NON-HDL CHOLESTEROL 73 mg/dL Normal The [facility] Comment on above: Performed By: #### 4 1000, 82470, 91900, 30276, 59363, 17857 ####[facility]3000 [facility].[address] Triglyceride mass conc 106 mg/dL Normal 40-149 The [facility] Comment on above: Result Comment: TRIG LYCERIDE REFERENCE RANGE:20 YEARS AND OLDER CARDIOVASCULAR RISKLESS THAN 150 mg/dl LOW [id number] TO 199 mg/dl BORDERLINE [id number] mg/dl AND GREATER HIGH RISK Performed By: #### 4 1000, 34070, 87146, 69974, 35543, 69200 ####[facility]3000 [facility].[address] VLDL CHOL 21 mg/dL Normal 0-40 The [facility] Comment on above: Performed By: #### 4 1000, 19029, 87843, 75968, 78607, 37510 ####[facility]3000 [facility].[address] MAGNESIUM BLOODon 04-29-2017 Magnesium mass conc 2.1 mg/dL Normal 1.9-2.7 The [facility] Comment on above: Performed By: #### 4 1000, 72762, 56351, 16195, 41800, 79050 ####[facility] [place] [address], [facility] PHOSPHORUS BLOODon 8 Phosphate mass conc 3.3 mg/dL Normal 2.5-5.0 The [facility] Comment on above: Performed By: #### 4 1000, 24207, 30642, 47629, 99573, 25284 ####[facility]3000 [facility].[address] TACROLIMUSon 04-29-2017 Tacrolimus mass conc (Bld) 4.6 ng/mL Low 5.0-20.0 The [facility] Comment on above: Result Comment: The [facility] [facility] [facility] Tacrolimus assay is a delayed one-step immunoassayfor the quantitative determination of tacrolimus in human whole bloodusing the chemiluminescent microparticle immunoassay (CMIA) technologywith flexible assay protocols, referred to as Chemiflex. Performed By: #### 4 1000, 99516, 55381, 86387, 50562, 94945 ####[facility]3000 [facility].[address] URIC ACID BLOODon 04-29-2017 Urate mass conc 4.6 mg/dL Normal 2.3-6.6 The [facility] Comment on above: Performed By: #### 4 1000, 65954, 22522, 30461, 90826, 07496 ####[facility].[address] CBC W/DIFFon 03-27-2017 Basophils Auto #/vol (Bld) 0.2 % Normal 0.0-2.0 The [facility] Comment on above: Performed By: #### 4 1000, 88345, 68309, 86425, 54770, 01896 ####[facility]3000 [facility].[address] Eosinophils/100 WBC Auto (Bld) 1.8 % Normal 0.0-5.0 The [facility] Comment on above: Performed By: #### 4 1000, 21015, 71183, 94183, 74468, 89474 ####[facility].[address] Erythrocyte distribution width Auto Ratio (RBC) 13.6 % Normal 11.5-16.9 The [facility] Comment on above: Performed By: #### 4 1000, 61724, 48609, 30701, 63071, 24911 ####[facility] Hematocrit Auto Volume Fraction (Bld) 47.6 % Normal 36.0-48.0 The [facility] Comment on above: Performed By: #### 4 1000, 73232, 76556, 33709, 61704, 17957 ####[facility] Hemoglobin mass conc (Bld) 15.8 g/dL High 12.0-15.0 The [facility] Comment on above: Performed By: #### 4 1000, 50350, 51022, 42359, 36207, 24108 ####[facility] Lymphocytes/100 WBC Auto (Bld) 14.5 % Low 20.0-40.0 The [facility] Comment on above: Performed By: #### 4 1000, 67758, 87035, 18157, 86391, 29982 ####[facility] MCH Auto Entitic mass (RBC) 29.0 pg Normal 24.0-32.0 The [facility] Comment on above: Performed By: #### 4 1000, 55963, 01303, 48026, 38598, 60970 ####[facility] MCHC Auto mass conc (RBC) 33.3 g/dL Normal 32.0-36.0 The [facility] Comment on above: Performed By: #### 4 1000, 60000, 33865, 20765, 81601, 30277 ####[facility] MCV Auto Entitic volume (RBC) 87.4 fL Normal 80.0-100.0 [facility] Comment on above: Performed By: #### 4 1000, 81180, 06306, 46857, 51730, 98093 ####[facility] METHOD Normal RBC Morphology Normal The [facility] Comment on above: Performed By: #### 4 1000, 17582, 80400, 38177, 93854, 52473 ####[facility] MONOS 9.6 % High 2-8 [facility] Comment on above: Performed By: #### 4 1000, 56409, 29183, 86720, 39342, 81935 ####[facility] Neutrophils/100 WBC Auto (Bld) 73.9 % High 50-70 The [facility] Comment on above: Performed By: #### 4 1000, 10960, 99159, 88558, 22578, 49105 ####[facility] PLAT CNT 228 Thou/mm3 Normal 100-400 The [facility] Comment on above: Performed By: #### 4 1000, 22938, 45735, 78116, 78358, 40556 ####[facility] RBC Auto #/vol (Bld) 5.45 mill/mm3 Normal 3.50-5.50 T he [facility] Comment on above: Performed By: #### 4 1000, 95646, 91950, 59788, 92764, 68290 ####[facility] WBC Auto #/vol (Bld) 6.5 Thou/mm3 Normal 4.0-10.0 Th e [facility] Comment on above: Performed By: #### 4 1000, 58345, 47546, 57144, 71530, 28145 ####[facility] COMP METABOLIC PANELon 03-27 Albumin mass conc 4.7 g/dL Normal 3.5-5.7 [facility] Comment on above: Performed By: #### 4 1000, 79887, 29369, 48922, 37708, 36833 ####[facility] [place] [address], [facility] ALKALINE PHOSPH 99 IU/L Normal 34-104 [facility] Comment on above: Performed By: #### 4 1000, 84487, 89118, 03709, 00876, 69354 ####[facility] ALT enzyme act/vol 19 U/L Normal 7-52 [facility] Comment on above: Performed By: #### 4 1000, 94224, 42871, 94676, 73170, 58307 ####[facility] [place] [address], [facility] AST enzyme act/vol 21 U/L Normal 13-39 The [facility] Comment on above: Performed By: #### 4 1000, 69535, 21802, 03163, 13760, 13023 ####[facility] [place] [address], [facility] Bilirubin mass conc 0.6 mg/dL Normal 0.3-1.0 The [facility] Comment on above: Performed By: #### 4 1000, 64005, 14243, 96249, 95462, 64148 ####[facility].[place] [id number], [facility] Calcium mass conc 10.2 mg/dL Normal 8.6-10.3 The [facility] Comment on above: Performed By: #### 4 1000, 03289, 35855, 93888, 19371, 41945 ####[facility] [place] [address], [facility] Chloride molar conc 104 mmol/L Normal 98-107 The [facility] Comment on above: Performed By: #### 4 1000, 56989, 40506, 57803, 12381, 95518 ####[facility] [place] [address], [place] CO2 molar conc 28 mmol/L Normal 21-31 The [facility] Comment on above: Performed By: #### 4 1000, 23769, 97418, 45414, 34959, 98120 ####[facility] [place] [address], [place] Creatinine mass conc 0.78 mg/dL Normal 0.60-1.20 [facility] Comment on above: Performed By: #### 4 1000, 97859, 53008, 15542, 58630, 79566 ####[facility] [place] [address], [place] GFR/1.73 sq M predicted among blacks MDRD vol rate/area (S/P/Bld) mL/min/{1.73_m2} Normal >60 The [facility] Comment on above: Performed By: #### 4 1000, 84148, 35291, 28137, 95168, 74045 ####[facility] [place] [address], [place] GFR/1.73 sq M predicted among non-blacks MDRD vol rate/area (S/P/Bld) mL/min/{1.73_m2} Normal >60 The [facility] Comment on above: Performed By: #### 4 1000, 20463, 34648, 31260, 69390, 42757 ####[facility] [place] [address], [facility] Glucose mass conc 87 mg/dL Normal 70-100 The [facility] Comment on above: Performed By: #### 4 1000, 17295, 66187, 69513, 14396, 86929 ####[facility] [place] [address], [facility] Potassium molar conc 4.1 mmol/L Normal 3.5-5.1 The [facility] Comment on above: Performed By: #### 4 1000, 42746, 90762, 66965, 08081, 18394 ####[facility] [place] [address], [facility] Protein mass conc 7.8 g/dL Normal 6.0-8.3 The [facility] Comment on above: Performed By: #### 4 1000, 34488, 95230, 55957, 31571, 24695 ####[facility] [place] [address], [place] Sodium molar conc 139 mmol/L Normal 136-145 The [facility] Comment on above: Performed By: #### 4 1000, 45249, 97729, 09832, 91553, 33629 ####[facility] [place] [address], [facility] Urea nitrogen mass conc 19 mg/dL Normal 7-25 The [facility] Comment on above: Performed By: #### 4 1000, 84713, 13403, 85299, 37082, 64577 ####[facility] [place] [address], [facility] DIRECT BILIon 03-27-2017 Bilirubin.direct mass conc 0.1 mg/dL Normal 0.0-0.2 The [facility] Comment on above: Performed By: #### 4 1000, 74722, 12171, 94423, 15356, 27615 ####[facility] [place] [address], [facility] EVEROLIMUS 36774dy 7 EVEROLIMUS 5.3 ng/mL Normal [facility] [...] the transplantcenter.Test developed and characteristics determined by [facility]. See Compliance Statement B: [employer]/CSPerformed by [employer],[address] [place] [address] 15400 oqo.[employer], Leonid Antonio MD - Lab. Director LIPID PROFILEon 03-27-2017 Cholesterol in HDL mass conc 50 mg/dL Normal 23-92 The [facility] Comment on above: Result Comment: Slig ht variation in normal range could be due to gender and/or age.HDL CHOLESTEROL REFERENCE RANGE:20 years and older Cardiovascular Risk> or =60 mg/dL [id number] TO 59 mg/dL Low Risk<40 mg/dL High Risk Performed By: #### 4 1000, 82242, 62309, 44082, 44249, 69883 ####[facility] [facility] [place] [address], [facility] Cholesterol in LDL mass conc 66 mg/dL Normal 0-130 The [facility] Comment on above: Result Comment: LDL IS A CALCULATIONLDL IS ONLY VALID IF THE TRIG IS LESS THAN 400. Performed By: #### 4 1000, 89187, 39045, 36516, 44182, 35744 ####[facility] [place] [address], [facility] Cholesterol mass conc 147 mg/dL Normal 120-200 The [facility] Comment on above: Result Comment: CHOL ESTEROL REFERENCE RANGE:20 YEARS AND OLDER CARDIOVASCULAR RISKLess than 200 mg/dl Low [id number] to 239 mg/dl Borderline Rmuo241 mg/dl and greater High Risk Performed By: #### 4 1000, 89604, 35197, 04554, 12375, 28778 ####[facility] [facility] [place] [address], [facility] Cholesterol.total/Cho lesterol in HDL mass ratio 2.9 {ratio} Normal .0-4.5 [facility] Comment on above: Performed By: #### 4 1000, 53808, 20349, 30989, 04850, 71003 ####[facility].[address] NON-HDL CHOLESTEROL 97 mg/dL Normal The [facility] Comment on above: Performed By: #### 4 1000, 51703, 89934, 05941, 91798, 62472 ####[facility] [facility] [place] [address], [facility] Triglyceride mass conc 157 mg/dL High 40-149 The [facility] Comment on above: Result Comment: TRIG LYCERIDE REFERENCE RANGE:20 YEARS AND OLDER CARDIOVASCULAR RISKLESS THAN 150 mg/dl LOW [id number] TO 199 mg/dl BORDERLINE [id number] mg/dl AND GREATER HIGH RISK Performed By: #### 4 1000, 23228, 60494, 57623, 01133, 25015 ####[facility] [place] [address], [facility] VLDL CHOL 31 mg/dL Normal 0-40 The [facility] Comment on above: Performed By: #### 4 1000, 50809, 49321, 20767, 91133, 04823 ####[facility].[address] MAGNESIUM BLOODon 03-27-2017 Magnesium mass conc 1.9 mg/dL Normal 1.9-2.7 The [facility] Comment on above: Performed By: #### 4 1000, 20687, 15221, 83132, 13423, 50307 ####[facility].[address] PHOSPHORUS BLOODon 7 Phosphate mass conc 3.4 mg/dL Normal 2.5-5.0 The [facility] Comment on above: Performed By: #### 4 1000, 40726, 29828, 21985, 63609, 29147 ####[facility].[address] TACROLIMUSon 03-27-2017 Tacrolimus mass conc (Bld) 3.7 ng/mL Low 5.0-20.0 The [facility] Comment on above: Result Comment: The [employer] Tacrolimus assay is a delayed one-step immunoassayfor the quantitative determination of tacrolimus in human whole bloodusing the chemiluminescent microparticle immunoassay (CMIA) technologywith flexible assay protocols, referred to as Chemiflex. Performed By: #### 4 1000, 09638, 29167, 28102, 04405, 24312 ####[facility] URIC ACID BLOODon 03-27-2017 Urate mass conc 4.1 mg/dL Normal 2.3-6.6 The [facility] Comment on above: Performed By: #### 4 1000, 83056, 67423, 76707, 49100, 16176 ####[facility].[address] BK VIRUS QUANTITATION PCR BL OODon 02-26-2017 BKV QUANT PCR Not detected Normal The [facility] Comment on above: Result Comment: Meth od: BK virus was measured by quantitative polymerase chain reactionusing a TaqMan probe targeting the polyomavirus BK CASING CLEANER-1 gene.The lower limit of quantitation of the assay is 500 copies of BK genomeper milliliter of plasma or urine, and any detectable BK DNA below thatlevel is reported as: Detected, <500 copies/ml. Serial BK virusmeasurement can be used to monitor disease activity. (Reference:Kelsie vaughanl. J CLIN MICRO 2004; 42:9502-0880).This test was developed and its performance characteristics determinedby the [facility]. It has not been approvedby the US Food and Drug Administration. However, such approval is notrequired for clinical implementation, and test results have been shownto be clinically useful. This laboratory is CAP accredited and CLIAcertified to perform high complexity testing. Performed By: #### 4 1000, 89803, 46856, 60066, 37887, 07271 ####[address] LOG 10 COPIES Not detected Normal The [facility] Comment on above: Performed By: #### 4 1000, 48772, 14071, 03123, 90358, 28573 ####[place] [address] CBC W/DIFFon 02-26-2017 Basophils Auto #/vol (Bld) 0.3 % Normal 0.0-2.0 The [facility] Comment on above: Performed By: #### 5 0103 ####[place] [address] Eosinophils/100 WBC Auto (Bld) 2.2 % Normal 0.0-5.0 The [facility] Comment on above: Performed By: #### 5 0103 ####[place] [address] Erythrocyte distribution width Auto Ratio (RBC) 13.8 % Normal 11.5-16.9 The [facility] Comment on above: Performed By: #### 5 0103 ####[facility].[address] Hematocrit Auto Volume Fraction (Bld) 44.9 % Normal 36.0-48.0 The [facility] Comment on above: Performed By: #### 3 ####[facility].[address] Hemoglobin mass conc (Bld) 15.0 g/dL Normal 12.0-15.0 The [facility] Comment on above: Performed By: #### 102 ####[place] [address] [facility].[address] Lymphocytes/100 WBC Auto (Bld) 18.9 % Low 20.0-40.0 The [facility] Comment on above: Performed By: #### 3 ####[facility].[address] MCH Auto Entitic mass (RBC) 28.9 pg Normal 24.0-32.0 The [facility] Comment on above: Performed By: #### 3 ####[facility].[address] MCHC Auto mass conc (RBC) 33.4 g/dL Normal 32.0-36.0 The [facility] Comment on above: Performed By: #### 3 ####[facility].[address] MCV Auto Entitic volume (RBC) 86.6 fL Normal 80.0-100.0 The [facility] Comment on above: Performed By: #### 3 ####[facility] [address] METHOD Normal RBC Morphology Normal The [facility] Comment on above: Performed By: #### 5 3 ####[facility] [facility] [place] [address], [facility] MONOS 11.7 % High 2-8 The [facility] Comment on above: Performed By: #### 5 0103 ####[facility] [place] [address], [facility] Neutrophils/100 WBC Auto (Bld) 66.9 % Normal 50-70 The [facility] Comment on above: Performed By: #### 5 0103 ####[facility] [place] [address], [facility] PLAT CNT 230 Thou/mm3 Normal 100-400 The [facility] Comment on above: Performed By: #### 5 0103 ####[facility] [place] [address], [facility] RBC Auto #/vol (Bld) 5.18 mill/mm3 Normal 3.50-5.50 T he [facility] Comment on above: Performed By: #### 5 0103 ####[facility] [place] [address], [facility] WBC Auto #/vol (Bld) 5.8 Thou/mm3 Normal 4.0-10.0 Th e [facility] Comment on above: Performed By: #### 5 0103 ####[facility].[address] COMP METABOLIC PANELon 02-26 Albumin mass conc 4.7 g/dL Normal 3.5-5.7 [facility] Comment on above: Performed By: #### 4 1000, 86451, 65603, 44464, 58801, 31193 ####[facility] [place] [address], [facility] ALKALINE PHOSPH 115 IU/L High 34-104 The [facility] Comment on above: Performed By: #### 4 1000, 17539, 83077, 08160, 12364, 32974 ####[facility] [place] [address], [facility] ALT enzyme act/vol 18 U/L Normal 7-52 The [facility] Comment on above: Performed By: #### 4 1000, 85683, 92348, 30207, 35485, 80894 ####[facility] [place] [address], [place] AST enzyme act/vol 22 U/L Normal 13-39 The [facility] Comment on above: Performed By: #### 4 1000, 08527, 85903, 01479, 53867, 45042 ####[facility] [place] [address], [facility] Bilirubin mass conc 0.6 mg/dL Normal 0.3-1.0 The [facility] Comment on above: Performed By: #### 4 1000, 80474, 85948, 74723, 98379, 98639 ####[facility] [place] [address], [place] Calcium mass conc 9.8 mg/dL Normal 8.6-10.3 The [facility] Comment on above: Performed By: #### 4 1000, 73758, 40399, 81522, 53848, 25936 ####[facility] [place] [address], [place] Chloride molar conc 103 mmol/L Normal 98-107 The [facility] Comment on above: Performed By: #### 4 1000, 43818, 34537, 78101, 75445, 15431 ####[facility] [place] [address], [place] CO2 molar conc 29 mmol/L Normal 21-31 The [facility] Comment on above: Performed By: #### 4 1000, 02801, 04311, 79793, 12285, 23843 ####[facility] [place] [address], [facility] Creatinine mass conc 0.78 mg/dL Normal 0.60-1.20 The [facility] Comment on above: Performed By: #### 4 1000, 14954, 28756, 15750, 85978, 05495 ####[facility] [place] [address], [facility] GFR/1.73 sq M predicted among blacks MDRD vol rate/area (S/P/Bld) mL/min/{1.73_m2} Normal >60 The [facility] Comment on above: Performed By: #### 4 1000, 47427, 88321, 56242, 65330, 59510 ####[facility] [place] [address], [facility] GFR/1.73 sq M predicted among non-blacks MDRD vol rate/area (S/P/Bld) mL/min/{1.73_m2} Normal >60 The [facility] Comment on above: Performed By: #### 4 1000, 32779, 96851, 24649, 45296, 63389 ####[facility] [address], [facility] Glucose mass conc 94 mg/dL Normal 70-100 The [facility] Comment on above: Performed By: #### 4 1000, 17539, 42387, 48884, 90343, 10035 ####[facility] [place] [address], [facility] Potassium molar conc 3.8 mmol/L Normal 3.5-5.1 The [facility] Comment on above: Performed By: #### 4 1000, 06284, 37752, 53999, 34739, 15776 ####[facility] [place] [address], [facility] Protein mass conc 7.4 g/dL Normal 6.0-8.3 The [facility] Comment on above: Performed By: #### 4 1000, 90418, 17406, 18953, 49210, 38466 ####[facility] Sodium molar conc 136 mmol/L Normal 136-145 The [facility] Comment on above: Performed By: #### 4 1000, 29684, 62831, 38357, 52004, 87053 ####[facility] Urea nitrogen mass conc 19 mg/dL Normal 7-25 [facility] Comment on above: Performed By: #### 4 1000, 78133, 32585, 42632, 26585, 66940 ####[facility] DIRECT BILIon 02-26-2017 Bilirubin.direct mass conc 0.1 mg/dL Normal 0.0-0.2 [facility] Comment on above: Performed By: #### 4 1000, 84214, 74636, 79332, 05245, 31057 ####[facility].[address] EVEROLIMUS [id number] 7 EVEROLIMUS 5.9 ng/mL Normal [facility] [...] determined by [facility]. See Compliance Statement B: [employer]/CSPerformed by [employer],[address] [place] [address] poy.[employer], Leonid Antonio MD - Lab. Director HEMOGLOBIN A1Con 02-26-2017 Glucose mass conc 108 mg/dL Normal 70-126 [facility] Comment on above: Performed By: #### 4 6447, 65153 ####[facility] [place] [address], [facility] Hemoglobin A1c/Hemoglobin.total mass fraction (Bld) 5.4 % Normal 4.0-6.0 [facility] Comment on above: Performed By: #### 4 6447, 34035 ####[facility] [place] [address], [facility] LIPID PROFILEon 02-26-2017 Cholesterol in HDL mass conc 54 mg/dL Normal 23-92 [facility] Comment on above: Result Comment: Slig ht variation in normal range could be due to gender and/or age.HDL CHOLESTEROL REFERENCE RANGE:20 years and older Cardiovascular Risk> or =60 mg/dL Hckzxyvyh26 TO 59 mg/dL Low Risk<40 mg/dL High Risk Performed By: #### 4 1000, 24808, 67719, 96183, 43496, 19800 ####[facility] [place] [address], [place] Cholesterol in LDL mass conc 70 mg/dL Normal 0-130 [facility] Comment on above: Result Comment: LDL IS A CALCULATIONLDL IS ONLY VALID IF THE TRIG IS LESS THAN 400. Performed By: #### 4 1000, 16200, 17621, 64174, 59659, 28243 ####[facility] [place] [address], [facility] Cholesterol mass conc 144 mg/dL Normal 120-200 The [facility] Comment on above: Result Comment: CHOL ESTEROL REFERENCE RANGE:20 YEARS AND OLDER CARDIOVASCULAR RISKLess than 200 mg/dl Low Vawc571 to 239 mg/dl Borderline Khtj465 mg/dl and greater High Risk Performed By: #### 4 1000, 72282, 09842, 95828, 18276, 22256 ####[facility] [place] [address], [facility] Cholesterol.total/Cho lesterol in HDL mass ratio 2.7 {ratio} Normal .0-4.5 [facility] Comment on above: Performed By: #### 4 1000, 50051, 89980, 77645, 50414, 61870 ####[facility] NON-HDL CHOLESTEROL 90 mg/dL Normal The [facility] Comment on above: Performed By: #### 4 1000, 98370, 95825, 03554, 20462, 40260 ####[facility].[address] Triglyceride mass conc 101 mg/dL Normal 40-149 [facility] Comment on above: Result Comment: TRIG LYCERIDE REFERENCE RANGE:20 YEARS AND OLDER CARDIOVASCULAR RISKLESS THAN 150 mg/dl LOW GVUI162 TO 199 mg/dl BORDERLINE [id number] mg/dl AND GREATER HIGH RISK Performed By: #### 4 1000, 00335, 34825, 50685, 05541, 59512 ####[facility] [place] [address], [facility] VLDL CHOL 20 mg/dL Normal 0-40 [facility] Comment on above: Performed By: #### 4 1000, 82352, 49019, 17757, 01653, 17885 ####[facility] [place] [address], [facility] MAGNESIUM BLOODon 02-26-2017 Magnesium mass conc 1.9 mg/dL Normal 1.9-2.7 The [facility] Comment on above: Performed By: #### 4 1000, 51708, 01864, 61195, 26240, 65348 ####[facility] PHOSPHORUS BLOODon 7 Phosphate mass conc 4.1 mg/dL Normal 2.5-5.0 [facility] Comment on above: Performed By: #### 4 1000, 43566, 45308, 28807, 44538, 21952 ####[facility] TACROLIMUSon 02-26-2017 Tacrolimus mass conc (Bld) 4.2 ng/mL Low 5.0-20.0 The [facility] Comment on above: Result Comment: The [employer]IST Tacrolimus assay is a delayed one-step immunoassayfor the quantitative determination of tacrolimus in human whole bloodusing the chemiluminescent microparticle immunoassay (CMIA) technologywith flexible assay protocols, referred to as Chemiflex. Performed By: #### 4 6447, 15974 ####[facility] URIC ACID BLOODon 02-26-2017 Urate mass conc 4.3 mg/dL Normal 2.3-6.6 The [facility] Comment on above: Performed By: #### 4 1000, 77034, 81960, 82721, 05583, 85445 ####[facility] Vital Signs Date Time Vital Sign Value Performing Clinician Facility 08-30-2023 09: Body height 182.88 cm [facility] 08-30-2023 09: Body mass index (BMI) [Ratio] 17.9 kg/m2 [facility] 08-30-2023 09:040 Body temperature 99.8 [degF] [facility] 08-30-2023 09:22-0400 Body weight 59.87 kg [facility] 08-30-2023 09:22-0400 Diastolic blood pressure 73 mm[Hg] [facility] 08-30-2023 09:22-0400 Heart rate 67 /min [facility] 08-30-2023 09:22-0400 SaO2% (BldA) [Mass fraction] 95 % [facility] 08-30-2023 09:22-0400 Systolic blood pressure 111 mm[Hg] [facility] 03-27-2023 11:30-0500 Body height 152.4 cm Cathy Bella Other [employer] [facility] [employer] Other 03-27-2023 11:30-0500 Body mass index (BMI) [Ratio] 25.39 kg/m2 Cathy Bella Other [employer] Other 03-27-2023 11:30-0500 Body temperature 97.5 [degF] Cathy Bella Other [employer] Other 03-27-2023 11:30-0500 Body weight 58.97 kg Cathy Bella Other [employer] Other 03-27-2023 11:30-0500 Respiratory rate 18 /min Cathy Bella Other [employer] Other 03-27-2023 11:30-0500 SaO2% (BldA) [Mass fraction] 96 % Cathy Bella Other [employer] Other 09-21-2022 09:00-0400 Body height 152.4 cm Martha Guevara Other [employer] Other 09-21-2022 09:00-0400 Body mass index (BMI) [Ratio] 22.46 kg/m2 Martha Guevara Other [employer] Other 09-21-2022 09:00-0400 Body temperature 97.6 [degF] Martha Guevara Other [employer] Other 09-21-2022 09:00-0400 Body weight 52.16 kg Martha Guevara Other [employer] Other 09-21-2022 09:00-0400 Diastolic blood pressure 70 mm[Hg] Martha Guevara Other [employer] Other 09-21-2022 09:00-0400 Respiratory rate 18 /min Martha Guevara Other [employer] Other 09-21-2022 09:00-0400 SaO2% (BldA) [Mass fraction] 96 % Martha Guevara Other [employer] Other 09-21-2022 09:00-0400 Systolic blood pressure 107 mm[Hg] Martha Guevara Other [employer] Other 01-12-2022 13:55-0400 Body height 152.4 cm Cathy Bella Other [employer] Other 01-12-2022 13:55-0400 Body mass index (BMI) [Ratio] 19.53 kg/m2 Cathy Bella Other [employer] Other 01-12-2022 13:55-0400 Body temperature 96.9 [degF] Cathy Bella Other [employer] Other 01-12-2022 13:55-0400 Body weight 45.36 kg Cathy Bella Other [employer] Other 01-12-2022 13:55-0400 Respiratory rate 18 /min Cathy Bella Other [employer] Other 01-12-2022 13:55-0400 SaO2% (BldA) [Mass fraction] 97 % Cathy Bella Other [employer] Other 12-28-2021 10:20-0400 Body height 152.4 cm Martha Guevara Other [employer] Other 12-28-2021 10:20-0400 Body mass index (BMI) [Ratio] 21.48 kg/m2 Martha Smithmond Other [employer] Other 12-28-2021 10:20-0400 Body temperature 98 [degF] Martha Smithmond Other [employer] Other 12-28-2021 10:20-0400 Body weight 49.9 kg Martha Smithmond Other [employer] Other 12-28-2021 10:20-0400 Respiratory rate 18 /min Martha Smithmond Other [employer] Other 12-28-2021 10:20-0400 SaO2% (BldA) [Mass fraction] 97 % Martha Paola Other [employer] Other 12-25-2021 10:05-0400 Body height 152.4 cm Cathy Bella Other [employer] Other 12-25-2021 10:05-0400 Body mass index (BMI) [Ratio] 21.48 kg/m2 Cathy Bella Other [employer] Other 12-25-2021 10:05-0400 Body temperature 96 [degF] Cathy Bella Other [employer] Other 12-25-2021 10:05-0400 Body weight 49.9 kg Cathy Bella Other [employer] Other 12-25-2021 10:05-0400 Respiratory rate 18 /min Cathy Bella Other [employer] Other 12-25-2021 10:05-0400 SaO2% (BldA) [Mass fraction] 97 % Cathy Bella Other [employer] Other 10-27-2021 12:35-0400 Body height 152.4 cm Cathy Bella Other [employer] Other 10-27-2021 12:35-0400 Body mass index (BMI) [Ratio] 22.85 kg/m2 Cathy Bella Other [employer] Other 10-27-2021 12:35-0400 Body weight 53.07 kg Cathy Bella Other [employer] Other 10-27-2021 12:35-0400 Diastolic blood pressure 87 mm[Hg] Cathy Bella Other [employer] Other 10-27-2021 12:35-0400 SaO2% (BldA) [Mass fraction] 98 % Cathy Bella Other [employer] Other 10-27-2021 12:35-0400 Systolic blood pressure 130 mm[Hg] Cathy Bella Other [employer] Other 08-14-2021 10:40-0400 Body height 152.4 cm Martha Guevara Other [employer] Other 08-14-2021 10:40-0400 Body mass index (BMI) [Ratio] 22.46 kg/m2 Martha Guevara Other [employer] Other 08-14-2021 10:40-0400 Body temperature 96.7 [degF] Martha Guevara Other [employer] Other 08-14-2021 10:40-0400 Body weight 52.16 kg Martha Guevara Other [employer] Other 08-14-2021 10:40-0400 Diastolic blood pressure 68 mm[Hg] Martha Guevara Other [employer] Other 08-14-2021 10:40-0400 Respiratory rate 20 /min Martha Guevara Other [employer] Other 08-14-2021 10:40-0400 SaO2% (BldA) [Mass fraction] 98 % Martha Guevara Other [employer] Other 08-14-2021 10:40-0400 Systolic blood pressure 144 mm[Hg] Martha Guevara Other [employer] Other Encounters Encounter Date Encounter Type Care Provider Facility Start: 04-01-2024 End: 04-01-2024 ambulatory [facility] Start: 03-19-2024 End: 03-19-2024 [facility] Result Encounter Generic External Data Provider [facility] External Department Unsolicited Start: 03-19-2024 End: 03-19-2024 [facility] Result Encounter Generic External Data Provider [...] Unsolicited Start: 09-23-2023 End: [facility] Start: 09-02-2023 End: 09-02-2023 ambulatory ESTER PADILLA Not Available Start: 08-30-2023 End: 08-30-2023 ambulatory [facility] Work Phone: Start: 08-30-2023 End: 08-30-2023 Patient encounter procedure [facility] Work Phone: Start: 04-02-2023 End: 04-02-2023 ambulatory RAMON CARROLL Not Available Start: 03-27-2023 End: 03-27-2023 ambulatory Cathy Bella Other [employer] Other Start: 03-27-2023 Office outpatient visit 25 minutes Cathy Bella [facility] Start: 03-06-2023 End: 03-06-2023 ambulatory ESTER PADILLA Not Available Start: 02-12-2023 End: 02-12-2023 ambulatory ESTER PADILLA Not Available Start: 09-21-2022 End: 09-21-2022 ambulatory Martha Paola Other [employer] Other Start: 09-21-2022 Office outpatient visit 15 [...] 01-12-2022 End: 01-12-2022 ambulatory Cathy Bella Other [employer] Other Start: 01-12-2022 Office outpatient visit 15 minutes Cathy Bella [facility] Start: 01-07-2022 End: 01-07-2022 ambulatory ISATU GUAMAN . Facility:[facility] Start: 01-03-2022 End: 01-04-[address] VIRGIL SWIFT Facility:[facility] Start: 12-28-2021 End: 12-28-2021 ambulatory Martha Guevara Other [employer] Other Start: 12-28-2021 Office outpatient visit 15 minutes Martha Paola [facility] Start: 12-25-2021 End: 12-25-2021 ambulatory Cathy Bella Other [employer] Other Start: 12-25-2021 Office outpatient visit 25 minutes Cathy Bella [facility] Start: 12-05-2021 End: 12-06-[address] DOCTOR MISC Facility:[facility] Start: 11-07-2021 End: 11-08-[address] DOCTOR MISC Facility:[facility] Start: 10-27-2021 End: 10-27-2021 ambulatory Cathy Bella Other [employer] Other Start: 10-27-2021 Office outpatient visit 15 minutes Cathy Bella [facility] Start: 10-15-2021 End: 10-16-[address] DOCTOR MISC Facility:[facility] Start: 10-08-2021 End: 10-09-[address] DOCTOR MISC Facility:[facility] Start: 09-10-2021 End: 09-11-[address] DOCTOR MISC Facility:[facility] Start: 08-14-2021 End: 08-14-2021 ambulatory Martha Guevara Other [employer] Other Start: 08-14-2021 Office outpatient visit 15 minutes Martha Guevara [facility] Start: 12-31-2017 End: 01-01-2018 Patient encounter VIRGIL HAYNES Facility:[facility] Start: 12-25-2017 End: 12-26-2017 Patient encounter ROSALINDA ROSENBAUM Facility:[facility] Start: 10-30-2017 End: 10-31-2017 Patient encounter ROSALINDA ROSENBAUM Facility:[facility] Start: 10-23-2017 End: 10-24-2017 Patient encounter ROSALINDA ROSENBAUM Facility:[facility] Start: 09-25-2017 End: 09-26-2017 Patient encounter ROSALINDA ROSENBAUM Facility:[facility] Start: 08-26-2017 End: 08-27-2017 Patient encounter ROSALINDA ROSENBAUM Facility:[facility] Start: 07-23-2017 End: 07-24-2017 Patient encounter ROSALINDA ROSENBAUM Facility:[facility] Start: 06-20-2017 End: 06-21-2017 Patient encounter ROSALINDA ROSENBAUM Facility:[facility] Start: 05-27-2017 End: 05-28-2017 Patient encounter ROSALINDA ROSENBAUM Facility:[facility] Start: 04-29-2017 End: 04-30-2017 Patient encounter ROSALINDA ROSENBAUM Facility:[facility] Start: 03-27-2017 End: 03-28-2017 Patient encounter ROSALINDA ROSENBAUM Facility:[facility] Start: 02-26-2017 End: 02-27-2017 Patient encounter DOE BRIDGES Facility:[facility] Procedures Date Procedure Procedure Detail Performing Clinician Start: 03-19-2024 ALL CBC WITH AUTO DIFF Generic External Data Provider Start: 02-13-2024 ALL CBC WITH AUTO DIFF Generic External Data Provider Start: 02-13-2024 ALL MAGNESIUM Generic E xternal Data Provider Start: 02-13-2024 ALL PHOSPHOROUS Generic External Data Provider Start: 02-13-2024 ALL URIC ACID Generic E xternal Data Provider Start: 02-13-2024 [facility] CMP (CMP) (FOR REMOTE [facility] USE) Generic External Data Provider Start: 02-13-2024 METRO BILIRUBIN, DIRECT Generic External Data Provider Start: 02-13-2024 TACROLIMUS (FK506), BLOOD Generic External Data Provider [...] Screening for malign ant neoplasm of colon [facility] Start: 02-14-2026 Screening for malign ant neoplasm of colon FIT-DNA [facility] Start: 02-10-2025 Screening for malign ant neoplasm of breast Mammogram [facility] Start: 04-02-2024 Medicare Annual Well ness (AWV) Medicare Annual Wellness (AWV) [facility] Start: 11-30-2023 Influenza vaccination Influenza Vacc ine (#1) [facility] Start: 07-24-2023 Screening for malign ant neoplasm of breast Mammogram [facility] Start: 1961 Pneumococcal Vaccine : 65+ Years (1 of 2 - PCV) Pneumococcal Vaccine: 65+ Years (1 of 2 - PCV) [facility] Start: 1955 Screening for malign ant neoplasm of colon [facility] Immunizations Immunization Date Immunization Notes Care Provider Fa cility 01-10-2023 Influenza, Seasonal, Quadrivalent, Adjuvanted Generic Provider [facility] 01-10-2023 influenza virus vaccine, unspecified formulation Generic Provider [facility] 09-16-2022 zoster vaccine recombinant Generic Provider [facility] 07-22-2022 zoster vaccine recombinant Generic Provider [facility] 02-19-2022 Influenza, injectabl e, [place] Canine Kidney, preservative free, quadrivalent Generic Provider [facility] 02-19-2022 SARS-COV-2 (COVID-19 ) vaccine, mRNA, spike protein, LNP, bivalent, PF Generic Provider [facility] 01-09-2021 influenza, seasonal, injectable Generic Provider [facility] 12-12-2019 influenza, injectabl e, quadrivalent, preservative free Generic Provider [facility] 12-26-2018 influenza, injectabl e, quadrivalent, contains preservative Generic [facility] 01-21-2018 influenza, injectabl e, quadrivalent, contains preservative Generic [facility] 12-29-2017 influenza, injectabl e, quadrivalent, preservative free Generic [facility] 12-20-2016 influenza, injectabl e, quadrivalent, preservative free Generic Provider [facility] 12-02-2016 seasonal influenza, intradermal, preservative free Generic Provider [facility] 01-16-2015 influenza, injectabl e, quadrivalent, preservative free Generic Provider [facility] 03-16-2009 influenza virus vaccine, split virus (incl. purified surface antigen) Martha Guevara Other [employer] [facility] [employer] Other 03-16-2009 influenza virus vaccine, unspecified formulation [facility] Payers Date Payer Category Payer Medicare ANTH MEDICARE ADVANTAGE [facility] MEDICARE ADVANTAGE [id number] 2021-Present [address] [place] [address] [id number] 2021 Medicare (Managed Care) AMY MARIN ADVANTAGE Member Subscriber Plan / Payer (Effective 2021-Present) Name: Tanika Grimm Relation to Subscriber: Self Name: Tanika Grimm Payer ID: Not on file Group ID: [id number] Type: Not on file Address: [address] [id number] 1959 Blue Cross Blue Shield [id number] 1959 Self-pay 1959 Unknown [id number] 1956 Unknown [id number] 2.16.840.1.264792.3.579. 2.647 1956 Unknown [id number] 2.16.840.1.343651.3.579. 2.647 1956 Unknown [id number] 2.16.840.1.004564.3.579. 2. 1956 Unknown [id number] 2.16.840.1.442211.3.579. 2.647 1956 Unknown [id number] 2.16.840.1.301000.3.579. 2.647 1956 Unknown [id number] 2.16.840.1.017813.3.579. 2.647 1956 Unknown [id number] 2.16.840.1.347235.3.579. 2.647 1956 Unknown [id number] 2.16.840.1.115887.3.579. 2.647 1956 Unknown [id number] 2.16.840.1.591644.3.579. 2.647 1956 Unknown [id number] 2.16.840.1.086969.3.579. 2.647 1956 Unknown [id number] 2.16.840.1.835013.3.579. 2.647 1956 Unknown [id number] 2.16.840.1.744637.3.579. 2.647 1956 Unknown [id number] 2.16.840.1.532437.3.579. 2.593 1956 Unknown [id number] 2.16.840.1.358607.3.579. 2. 1956 Unknown [id number] 2.16.840.1.362188.3.579. 2.59 1956 Unknown [id number] 2.16.840.1.876748.3.579. 2.59 1956 Unknown [id number] 2.16.840.1.116334.3.579. 2.59 1956 Unknown [id number] 2.16.840.1.580483.3.579. 2. 1956 Unknown [id number] 2.16.840.1.061074.3.579. 2.59 1956 Unknown [id number] 2.16.840.1.624600.3.579. 2.59 1956 Unknown [id number] 2.16.840.1.740373.3.579. 2.59 1956 Unknown [id number] 2.16.840.1.742037.3.579. 2.59 1956 Unknown [id number] 2.16.840.1.827445.3.579. 2.593 1956 Unknown [id number] 2.16.840.1.758064.3.579. 2.593 1956 Unknown [id number] 2.16.840.1.215442.3.579. 2.593 1956 Unknown [id number] 2.16.840.1.284893.3.579. 2.593 1956 Unknown [id number] 2.16.840.1.440363.3.579. 2.593 1956 Unknown [id number] 2.16.840.1.723642.3.579. 2.1259 1956 Unknown [id number] 2.16.840.1.140863.3.579. 2.1259 1956 Unknown [id number] 2.16.840.1.355713.3.579. 2.1259 1956 Unknown [id number] 2.16.840.1.029128.3.579. 2.1259 Unknown [id number] 2.16.840.1.722634.3.579. 2.593 Unknown Amy MCGREGOR/DAYSI [id number] Social History Date Type Detail Facility Unknown if ever smoked [facility] Other Start: 04-02-2023 End: 09-02-2023 Sex Assigned At [place] [facility] Other Start: 01-29-2023 End: 08-30-2023 Tobacco smoking status NHIS Never smoked tobacco (finding) [facility] Start: 1955 Sex Assigned At Female F [facility] Start: 01-29-2023 Tobacco use and exposure Smokeless tobacco non-user [facility] Start: 09-02-2023 Alcoholic beverage intake Lifetime non-drinker (finding) [facility] Start: 04-02-2023 End: 09-02-2023 History of Social function [facility] Start: 1955 Sex assigned at Not on file [facility] Clinical Notes 11-10-2007 to 04-01-2024 Note Date & Type Note Facility 04-01-2024 Note Transplant Clinic Patient : Tanika Grimm; 68 y.o. Reason for Visit: History of renal transplant. SUBJECTIVE: History Of Present Illness: Tanika Grimm is a 68 y.o. female who End-stage renal disease secondary to Polycystic Kidneys who underwent donor kidney transplant on 01/21/2013. 04/01/2024 Patient returns regarding post transplant follow up and immunosuppression regimen management. Urinary-dysuria, gross hematuria. Endorses nocturia x 2, not bothersome. Bowel movements, mild constipation, managed well with MiraLAX. Denies diarrhea or hematochezia Mild-dentures do not feel like they fit well, at times causes ulcers. Recommend keep follow-up with dentist/oral care provider. Patient denies fever, chills, dyspnea, chest pain, nausea or vomiting. Patient continues to follow closely with dermatology, for surveillance and treatment of any concerning lesions Hydration: Drinking 1-2 bottles of water, also iced tea 16 ounces 3-4/day. BP: On amlodipine 5 mg, spironolactone 25 mg. Not currently checking blood pressure at home Glucose: Mag: On magnesium oxide 40 mg p.o. daily Lipids: On atorvastatin 20 mg p.o. daily Immunosuppression: Tacrolimus 0.5 mg p.o. twice daily Usually taken 8 AM/8 PM Myfortic 720 mg (4 tabs x 180mg), PO, BID Review of Systems Negative other than pertinent positives as outlined in the above HPI Chart Reviewed Historical: >>>>>>>>>>>>>>>>>>>>>>>>>>>>>>>>>>>>>> >>>>>>>>>> 09/23/23 Pt here in follow up with [...] Continue meds and MONTHLY Labs with New [facility] standing Order given today. Follow up 6 months or sooner if needed. See Derm See PCP as scheduled: Dr Carroll. Tory Mouthwash script provided. Chart Review today: 03.17.23 Pt presents visit with . Pt states labs done Last week in [facility] and [place] calling for results. Pt seeing Derm in [place] for lesion: forearm and other lesions. Hx: [...] Hgb. Pt AGAIN instructed to use our [facility] Transplant standing order for her monthly labs. Pt reports B/P stable at home Discussed hydration PLan of Care: Continue meds and MONTHLY Labs with [facility] standing Order. Follow up 6 months or sooner if needed. See Derm See PCP as scheduled: Dr Carroll. 09/17/22 Pt helping son with transportation for [...] SACHA. See PCP as scheduled: Dr Carroll. The patient presents in the Renal Transplant [...] though she is done with the study. <<<<<<<<<<<<<<<<<<<<<<<<<<<<<<<<<<< (more content not included)... [facility] 12-18-2023 Note Will review by phone today with Dr. Negro Vivas tac level 3.9 for 2 consecutive months and if any dose changes, will notify this pt and amend this note. Most recent IR tacrolimus dosing on record is 0.5mg BID [facility] 12-09-2023 Note Prior auth for Mycop henolate was submitted via cm Approved- scanned into media Keycode: [id number] [facility] 11-26-2023 Note Prior auth submitted via [facility] Case: [id number], Status: Approved, Coverage Starts on: 08/27/2023 12:00:00 AM, Coverage Ends on: 11/25/2024 12:00:00 AM Keycode: [id number] [facility] 09-23-2023 Note 09/23/23 Chief Complaint Patient presents with Kidney Follow-up Pt has been having sores in her mouth for the past month. PCP: Ramon Carroll MD Txp Referring: Preferred Pharmacy: [facility] - [place], [place] - [address] [facility] [address] [id number] [place] [place] [facility] [address] [facility] [address] [facility] [address] [phone] [facility] - [place], [place] - [address] [facility] [address] Subjective Visit Vitals BP 139/74 (BP Location: Left arm, Patient Position: Sitting, BP Cuff Size: Adult) Pulse 59 Temp 36.3 ???C (97.3 ???F) (Oral) Resp 18 Ht 1.524 m (5') Wt 58.5 kg (129 lb) SpO2 99% BMI 25.19 kg/m??? OB Status Postmenopausal Smoking Status Never BSA 1.57 m??? No Known Allergies Medication Documentation Review Audit Reviewed by Ester Frederick MA (Field Inspector) on 09/23/23 at 0859 Medication Order Taking? Sig Documenting Provider Last Dose Status amLODIPine (Norvasc) 5 mg tablet [id number] Yes TAKE 1 TABLET BY MOUTH EVERY DAY Virgil Haynes NP Taking Active amoxicillin (Amoxil) 500 mg capsule [id number] No 1 capsule every 8 (eight) hours. Historical Provider, Not Taking Active atorvastatin (Lipitor) 20 mg tablet [id number] Yes TAKE 1 TABLET BY MOUTH EVERY DAY AT BEDTIME Virgil Haynes NP Taking Active baclofen (Lioresal) 10 mg tablet [id number] No Historical Provider, Not Taking Active cyanocobalamin (Vitamin B-12) 500 mcg tablet [id number] Yes in the morning. Historical Provider, Taking Active magnesium oxide (Mag-Ox) 400 mg (241.3 mg magnesium) tablet [id number] Yes Take 400 mg by mouth in the morning. Historical Provider, Taking Active mycophenolate (Myfortic) 180 mg EC tablet [id number] Yes TAKE 4 TABLETS BY MOUTH IN THE MORNING AND AT BEDTIME Patient taking differently: Take 540 mg by mouth in the morning and at bedtime. Doe Bridges MD Taking Active omega-3 fatty acids-fish oil (Fish OiL Extra Strength) 435-880 mg capsule [id number] Yes 1 capsule 1 (one) time each day at the same time. Historical Provider, Taking Active PARoxetine (Paxil) 10 mg tablet [id number] Yes Take 10 mg by mouth in the morning. Historical Provider, Taking Active potassium gluconate 595 mg (99 mg) tablet [id number] Yes every 12 (twelve) hours. Historical Provider, Taking Active spironolactone (Aldactone) 25 mg tablet [id number] Yes TAKE 1 TABLET BY MOUTH EVERY DAY Virgil Haynes NP Taking Active tacrolimus (Prograf) 0.5 mg capsule [id number] Yes TAKE ONE CAPSULE BY MOUTH EVERY [...] Continue meds and MONTHLY Labs with New [facility] standing Order given today. Follow up 6 months or sooner if needed. See Derm See PCP as scheduled: Dr Carroll. Magic Mouthwash script provided. Chart Review today: 03.17.23 Pt presents visit with . Pt states labs done Last week in [facility] and [place] calling for results. Pt seeing Derm in [place] for lesion: forearm and other lesions. Hx: melanoma PCP: local Dr Khoury (more content not included)... [facility] 03-27-2023 Evaluation note Encounter Date Diagnosis Assessment Notes Feb, Contact with and (suspected) exposure to covid-19 (ICD-10 - Z20.822) Feb, Viral URI (ICD-10 - J06.9) Advised patient that COVID/Influenza A/B/RSV test and rapid Strep test was negative today. Advised patient that will treat as viral URI. Supportive care as directed, increase fluids and rest, Tylenol as directed, rx of [place], cool mist humidifier, throat lozenges. Discussed infection [...] condition. Feb, Sore throat (ICD-10 - J02.9) [facility] Other 10-15-2022 Evaluation note* Encounter Date Diagnosis Assessment Notes [...] understanding and is agreeable with treatment plan [facility] Other 09-30-2022 Evaluation note* Encounter Date Diagnosis [...] no improvement in 2 to 3 days. [facility] Other 09-27-2022 Evaluation note* Encounter Date Diagnosis [...] treatment plan. Patient left in stable condition [facility] Other 07-30-2022 Evaluation note* Encounter Date Diagnosis [...] verbalizes understanding and agrees with treatment plan [facility] Other 05-17-2022 Evaluation note* Encounter Date Diagnosis [...] days July, Hematuria, unspecified (ICD-10 - R31.9) [facility] Other 08-12-2008 History general Narrative - Reported* Type Description Date Medical History PKD found in 1982 when she had a son Medical History hypertension Medical History kidney transplant Surgical History resection of superior cervical mass 11/10/07 Surgical History Teeth extraction in preparation for renal transplant Surgical History portacath placement Surgical History kidney transplant 2013 Hospitalization History see above [facility] Other Evaluation note* Diagnosis Onset Date Resolution Status Thrush, oral acute Sore throat noneactive [facility] Work Phone: History [facility] Other Summary Purpose Family History No Family [...] and content) DATE CREATED AUTHOR 01/30/[address] [facility] DATE CREATED AUTHOR AUTHOR'S ORGANIZ ATION 08/17/2021 [facility] DATE CREATED AUTHOR AUTHOR'S ORGANIZ ATION 08/13/2022 [facility] DATE CREATED AUTHOR AUTHOR'S ORGANIZ ATION 09/03/2023 [facility] EPIC DATE CREATED AUTHOR AUTHOR'S ORGANIZ ATION 04/02/2024 [facility] REASON FOR VISIT (unrecogniz ed section and content) DYSURIADYSURIADYSURIAPOSS RA SH ON BACK, ITCHINGDODGE JOURNEY, SORE THROAT, COUGHBLACK DODGE JOURNT SORE THROATIN CAR, MOUTH SORES, CALL [phone] THROAT, COUGHING, DRAINAGE Care Teams (unrecognized sec tion and content) Team Status: Active Member Role Status Dates Shelly May Primary Care Provider Active Team Status: Inactive Member Role Status Dates Shelly May Primary Care Provider Active Start: August 30, 2023 End: August 30, 2023 Lindsay Soria APRN Attending Provider Active Start: August 30, 2023 End: August 30, 2023 Sleeve Turner Relationship Specialty Start Date End Date Ramon Carroll MD [address] [place] [address] [address] [place] [address] PCP - Amy FERREIRA 04/08/21 Ramon Carroll MD [address] [place] [address] [place] [address] PCP - General Internal Medicine 08/06/22 Sleeve Turner Relationship Specialty Start Date End Date Ramon Carroll MD [address] [place] [address] [place] [address] PCP - Amy [place] 04/08/21 Ramon Carroll MD [address] [place] [address] [place] [address] PCP - General Internal Medicine 08/06/22 Sleeve Turner Relationship Specialty Start Date End Date Ramon Carroll MD [address] [place] [place] [address] PCP - Amy [place] 04/08/21 Ramon Carroll MD [address] [place] [address] [place] [address] PCP - General Internal Medicine 08/06/22 Goals [...] BE BASED ON THE PRIMARY CLINICAL RECORDS. [facility]. provides no warranty or guarantee of the accuracy or completeness of information in this document.
[2024-04-19 07:19] LABS: Basophils Percent Auto 0.3 % (0.2-2.0); Eosinophils Absolute Auto 0.2 10^3/uL (0.0-0.7); Eosinophils Percent Auto 2.8 % (0.9-7.0); Hematocrit 44.3 % (36.0-48.0); Hemoglobin 14.2 g/dL (12.0-16.0); Immature Granulocytes Abs Auto 0.02 10^3/uL (0.00-0.03); Immature Granulocytes Pct Auto 0.3 % (0.0-0.5); Lymphocytes Absolute Auto 1.2 10^3/uL (1.2-3.8); Lymphocytes Percent Auto 17.3 % (20.5-60.0); Mean Corpuscular HGB Conc 32.1 g/dL (29.9-35.2); Mean Corpuscular Hemoglobin 30.5 pg (26.7-34.0); Mean Corpuscular Volume 95.3 fL (81.0-99.0); Mean Platelet Volume 11.5 fL (9.5-13.5); Monocytes Absolute Auto 0.7 10^3/uL (0.3-0.8); Monocytes Percent Auto 9.4 % (1.7-12.0); Neutrophils Percent Auto 69.9 % (43.0-75.0); Platelet Count 210 10^3/uL (150-450); Red Blood Count 4.65 10^6/uL (4.20-5.40); Red Cell Distribution Width 14.9 % (11.0-15.0); White Blood Count 7.1 10^3/uL (4.0-11.0)
[2024-04-19 07:58] LABS: Estimated Average Glucose 103 mg/dL; Glycohemoglobin A1C 5.2 % (4.5-6.2)
[2024-04-19 08:19] LABS: Alanine Aminotransferase 17 U/L (14-59); Albumin Globulin Ratio 1.2; Albumin Level 3.7 g/dL (3.4-5.0); Alkaline Phosphatase 130 U/L (46-116); Anion Gap 10.9; Aspartate Amino Transferase 14 U/L (15-37); BUN Creatinine Ratio 22.2; Bilirubin Direct 0.1 mg/dL (0.0-0.2); Bilirubin Total 0.5 mg/dL (0.2-1.0); Calcium 9.1 mg/dL (8.5-10.1); Carbon Dioxide 30.3 mmol/L (21.0-32.0); Chloride 106 mmol/L (98-107); Estimated GFR (African America >60 (>=60 mL/min/1.73m^2); Estimated GFR (Non-African Ame >60 (>=60 mL/min/1.73m^2); Glucose 90 mg/dL (74-106); Magnesium 1.9 mg/dL (1.8-2.4); Phosphorus 3.7 mg/dL (2.6-4.7); Potassium 4.2 mmol/L (3.5-5.1); Sodium 143 mmol/L (136-145); Total Protein 6.7 g/dL (6.4-8.2); Uric Acid 4.8 mg/dL (2.6-6.0)
[2024-04-19 08:28] LABS: Chol HDL Ratio 2.5; Cholesterol 116 mg/dL (<=200); HDL Cholesterol 47 mg/dL (40-60); LDL Cholesterol Calculated 52.8 mg/dL; Triglycerides 81 mg/dL (<=150); VLDL CHOLESTEROL 16.2 mg/dL
[2024-04-21 12:07] LABS: BKV DNA, Quant PCR, Plasma Negative (Negative); Tacrolimus (FK506), Blood 4.2 ng/mL (2.0-20.0)
== END 2024-04-19 06:39 | disposition home or self-care (01) ==
LOC: LAB 06:41
PROVIDERS: PCP Internal Medicine
DX: Z94.0 Kidney transplant status (principal); R73.01 Impaired fasting glucose
CPT/HCPCS: 36415; 80053; 80061; 80197; 82248; 83036; 83735; 84100; 84550; 85025; 87799

== ENCOUNTER 2024-05-21 06:39 | Outpatient (OUT) | payer MEDICARE, SELFPAY ==
--- OUTSIDE RECORDS SUMMARY | 2024-05-21 06:46 | XMS_ITS | CCD ---
Author Organization [facility] Care Team Providers Care Toxicology Supervisor Name Role Phone SIOUX, DINKAR Unavailable Unavailable SIOUX, DINKAR Unavailable Unavailable CARROLL, RAMON Unavailable Unavailable [...] Attending Unavailable MISC, DR OBRIEN Admitting Unavailable SIOUX, DR CONNORS Consulting Unavailable CARROLL, DR DARBY Primary Care Unavailable MISC, DR OBRIEN Attending Unavailable MISC, DR OBRIEN Admitting Unavailable MISC, DR OBRIEN Attending Unavailable MISC, DR OBRIEN Admitting Unavailable MISC, DR OBRIEN Consulting Unavailable CARROLL, DR DARBY Primary Care Unavailable SIOUX, DR CONNORS Consulting Unavailable SIOUX, DR CONNORS Attending Unavailable CARROLL, DR DARBY Primary Care Unavailable SIOUX, DR CONNORS Admitting Unavailable SIOUX, DR CONNORS Attending Unavailable CARROLL, DR DARBY Primary Care Unavailable SIOUX, DR CONNORS Admitting Unavailable SIOUX, DR CONNORS Consulting Unavailable MISC, DR OBRIEN [...] Unavailable CARROLL, DR DARBY Primary Care Unavailable SIOUX, DR CONNORS Consulting Unavailable SIOUX, DR CONNORS Attending Unavailable CARROLL, DR DARBY Primary Care Unavailable SIOUX, DR CONNORS Admitting Unavailable MISC, DOCTOR Attending Unavailable MISC, DR OBRIEN Admitting Unavailable MISC, DR OBRIEN Consulting Unavailable CARROLL, DR DARBY Primary Care Unavailable MISC, DOCTOR Attending Unavailable MISC, DR OBRIEN Admitting Unavailable MISC, DR OBRIEN Consulting Unavailable CARROLL, DR DARBY Primary Care Unavailable SIOUX, DR CONNORS Consulting Unavailable SIOUX, DR CONNORS Attending Unavailable SIOUX, DR CONNORS Admitting Unavailable DR RAMON CARROLL Primary Care Unavailable RAMON CARROLL Attending Unavailable ESTER PADILLA Attending Unavailable ESETR PADILLA Attending Unavailable ESTER PADILLA Attending Unavailable Ramon Carroll MD Unavailable [phone] Ramon Carroll MD Primary Care Provider [phone] VIRGIL HAYNES Attending Unavailable ASHLI CARTER Attending Unavailable Medications Current Medications Medication Drug Class(es) Dates Sig (Normalized) Sig (Original) [id number] 200 actuat albuterol 0.09 mg/actuat metered dose inhaler (1 source) beta2-Adrenergic Agonist Start: 12-28-2021 take 2 puff(s) by inhalation four times daily as needed Albuterol Sulfate HFA 108 (90 Base) MCG/ACT 2 puffs Inhalation 4 times a day prn 30 Nov, 2021 Active amLODIPine 5 mg oral tablet (15 sources) Dihydropyridine Calcium Channel Eleonora Start: 11-26-2022 take 1 tablet by mouth in the morning amLODIPine (Norvasc) 5 MG tablet Take 5 mg by mouth in the morning. 11/26/2022 Active amLODIPine Besyl ate Active atorvastatin 20 mg oral tablet (6 sources) HMG-CoA Reductase Inhibitor Start: 08-30-2023 take 20 mg by mouth once daily at bedtime Atorvastatin Active 20 MG PO Daily at bedtime August 30, 2023 12:00am baclofen 10 mg oral tablet (5 sources) gamma-Aminobutyr ic Acid-ergic Agonist Start: 03-06-2023 [...] 1.5 mg/ml oral solution (1 source) Uncompetitive K-txhotf-J-asparta te Receptor Antagonist, Sigma-1 Agonist Start: 03-27-2023 take 10 mL by mouth every eight hours Tullos DM 7.5-7.5 MG/5ML 10 mL Orally every 8 hours for 5 days Feb, Active ergocalciferol 1.25 mg oral capsule (9 sources) Provitamin D2 Compound Start: 06-27-2011 take 1 capsule by mouth every week Vitamin D (Ergocalciferol) 75203 UNIT 1 capsule Orally Once a Week for 90 days May, Active Start: 06-27-2011 everolimus (6 sources) Kinase Inhibitor, mTOR Inhibitor Immunosuppressant Zortress Active ferrous fumarate 325 mg oral tablet (6 sources) Start: Ferrous Fumarate 325 (106 Fe) [...] day for 30 day(s) Active Fish Oils (14 sources) omega-3 (fish oi l) 435 MG [...] 12:00am magnesium oxide 400 mg oral capsule (14 sources) magnesium oxide 400 MG capsule Take [...] acid 180 mg delayed release oral tablet (5 sources) Antimetabolite Immunosuppressant Start: 01-27-2023 take 3 tablets by mouth in the morning mycophenolate (Myfortic) 180 MG EC tablet Take 3 tablets by mouth in the morning and 3 tablets before bedtime. 01/27/2023 Active nystatin 840098 unt/ml oral suspension (6 sources) Polyene Antifungal Start: 09-02-2023 take 5 mL by mouth four times daily nystatin (Mycostatin) 237072 UNIT/ML suspension Indications: Thrush, oral SWISH AND SWALLOW 5 MLS ORALLY 4 TIMES A DAY FOR 10 DAYS 60 mL 1 09/02/2023 Active Start: 08-30-2023 take 1 mL by mouth f our times daily Nystatin Active 5 ML PO Four times daily 200 August 30, 2023 12:00am swish and swallow [place] 2-Lhf-Jor-Fish Oil (Fish Oil) 1,000 mg (120 mg-180 mg) capsule (1 source) Start: 08-30-2023 take 1 capsule by mouth once daily [place] 8-Xvp-Azv-Fish Oil (Fish Oil) 1,000 mg (120 mg-180 mg) capsule Active 1 CAP PO Daily August 30, 2023 12:00am PARoxetine hydrochloride 20 mg oral tablet (6 sources) Serotonin Reuptake Inhibitor Start: 08-30-2023 Paroxetine [...] day for 2 day(s) July, Active Potassium (14 sources) Potassium 99 MG tablet 1 (one) [...] 2023 12:00am spironolactone 25 mg oral tablet (15 sources) Aldosterone Antagonist Start: 08-30-2023 take 25 mg by mouth once daily Spironolactone Active 25 MG PO Daily August 30, 2023 12:00am Spironolactone A ctive tacrolimus 0.5 mg oral capsule (15 sources) Calcineurin Inhibitor Immunosuppressant Start: 01-24-2023 tacrolimus [...] day for 30 day(s) Active vitamin B12 (8 sources) Vitamin B12 Start: 08-30-2023 take 1 [...] Not-Taking/PRN Start: 12-25-2021 take 1 capsule by [facility] every eight hours Tessalon Perles 100 [...] Problem Date Documented Date Episodic/Chronic Anxiety disorders (8 sources) Mixed anxiety and depressive disorder; Translations: [...] Onset: 5 Episodic Disorders of lipid metabolism (9 sources) Hyperlipidemia, unspecified; Translations: [Hypercholesterolemia] Onset: 2 08-30-2023 Chronic Essential hypertension (12 sources) Hypertensive disorder; Translations: [HTN] Onset: 2 08-30-2023 Chronic Fluid and electrolyte disorders (3 sources) Hyperosmolality and or hypernatremia; Translations: [Hyperosmolality and/or hypernatremia] Episodic Genitourinary congenital anomalies (9 sources) Multiple congenital cysts of kidney; Translations: [Polycystic kidney, unspecified type] Onset: 4 08-30-2023 Chronic Immunizations and screening for infectious disease (6 sources) Contact with and (suspected) exposure to other viral communicable diseases; Translations: [Contact with and (suspected) exposure to other viral communicable diseases] Episodic Menopausal disorders (5 sources) Decreased estrogen level; 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-2023 Chronic Mood disorders (5 sources) Moderate major depression, single episode; Translations: [Major depressive disorder, single episode, moderate] Onset: 3 03-06-2023 Chronic Other acquired deformities (5 sources) Contracture of joint of foot; Translations: [...] te Episodic/Chronic Diseases of mouth; excluding dental (6 sources) Other lesions of oral mucosa; Translations: [Parotitis] Onset: 01-29-2023 Resolved: 01-30-2023 Episodic Genitourinary symptoms and ill-defined conditions (10 sources) Hematuria, unspecified; Translations: [Dysuria] Onset: 12-31-2017 Resolved: 08-14-2021 Episodic Mood disorders (5 sources) Mood disorders Onset: 01-30-2023 01-30-2023 Mycoses (7 sources) Candidiasis of mouth; Translations: [Candidal stomatitis] Onset: 09-02-2023 08-30-2023 Episodic Other aftercare (1 source) Encounter for therapeutic drug level monitoring; Translations: [ENCOUNTER FOR THERAPEUTIC DRUG LEVEL MONITORING] Onset: 03-27-2017 Episodic Other aftercare (2 sources) Other long term care pharmacist (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 therapy; Translations: [OTHER ADVERTISING REP (CURRENT) DRUG THERAPY] Onset: 02-26-2017 Episodic Other liver diseases (5 sources) Alkaline phosphatase raised; Translations: [Abnormal levels of other serum enzymes] Onset: 01-29-2023 01-29-2023 Episodic Other screening for suspected conditions (not mental disorders or infectious disease) (9 sources) Encounter for screening mammogram for malignant neoplasm of breast; Translations: [Full blood count abnormal] Onset: 07-23-2022 Episodic Other skin disorders (1 source) Rash and other nonspecific skin eruption Onset: 10-27-2021 Resolved: 10-27-2021 Episodic Other upper respiratory infections (5 sources) Sinusitis; Translations: [Chronic sinusitis, unspecified] Onset: [...] WITH AUTO DIFFon BASOPHILS ABSOLUTE AUTO 0 [facility] Basophils/100 WBC (Bld) 0.3 % 0.2 - 2.0 % [facility] Eosinophils/100 WBC (Bld) 2.8 % 0.9 - 7.0 % [facility] Erythrocyte distribution width (RBC) [Ratio] 14.9 % 11.0 - 15.0 % [facility] Hematocrit (Bld) [Volume fraction] 44.3 % 36.0 - 48.0 % [facility] Hemoglobin (Bld) [Mass/Vol] 14.2 g/dL 12.0 - 16.0 g/dL [facility] IMMATURE GRANULOCYTES ABS AUTO 0.02 [facility] Immature granulocytes/100 WBC (Bld) 0.3 % 0.0 - 0.5 % [facility] Interpretation and review of laboratory results Abnormal [facility] LYMPHOCYTES ABSOLUTE AUTO 1.2 [facility] Lymphocytes/100 WBC (Bld) 17.3 % Low 20.5 - 60.0 % [facility] MCH (RBC) [Entitic mass] 30.5 pg 26.7 - 34.0 pg [facility] MCHC (RBC) [Mass/Vol] 32.1 g/dL 29.9 - 35.2 g/dL [facility] MCV (RBC) [Entitic vol] 95.3 fL 81.0 - 99.0 fL [facility]OC[facility]TES ABSOLUTE [facility]O [facility] Monocytes/100 WBC (Bld) 9.4 % 1.7 - 12.0 % [facility] NEUTROPHILS ABSOLUTE AUTO [address] [facility] Neutrophils/100 WBC (Bld) 69.9 % 43.0 - 75.0 % [facility] Platelet mean volume (Bld) [Entitic vol] 11.5 fL 9.5 - 13.5 fL [facility] TBH EO # 0.2 [facility] TB PLT 210 [facility] Healthcare [facility] RBC 4.65 [facility] WBC 7.1 [facility] 29on 04-01-2024 29 Addended by: ESTER FREDERICK on: 04/01/2024 02:20 PM Modules accepted: Orders Normal [facility] Follow-Upon 04-01-2024 Follow-Up [id number] Tanika Grimm 1955 F Date Provider Department Center 04/01/2024 [id number] CARTER None Family History Family Status - Relation Status Age at Mother Father Level of Service:38493 ME OFFICE/OUTPATIENT ESTABLISHED MOD MDM 30 MIN Reason for Visit and Comments: Kidney Follow-up [[id number]] - Pt has no concerns at this time. [facility] ALL CBC WITH AUTO DIFFon BASOPHILS ABSOLUTE AUTO 0 [facility] Basophils/100 WBC (Bld) 0.2 % 0.2 - 2.0 % [facility] Eosinophils/100 WBC (Bld) 2.2 % 0.9 - 7.0 % [facility] Erythrocyte distribution width (RBC) [Ratio] 14.8 % 11.0 - 15.0 % [facility] Hematocrit (Bld) [Volume fraction] 45.3 % 36.0 - 48.0 % [facility] Hemoglobin (Bld) [Mass/Vol] 14.4 g/dL 12.0 - 16.0 g/dL [facility] IMMATURE GRANULOCYTES ABS AUTO 0.02 [facility] Immature granulocytes/100 WBC (Bld) 0.2 % 0.0 - 0.5 % [facility] Interpretation and review of laboratory results Abnormal [facility] LYMPHOCYTES ABSOLUTE AUTO 1.5 [facility] Lymphocytes/100 WBC (Bld) 18.6 % Low 20.5 - 60.0 % [facility] MCH (RBC) [Entitic mass] 30.6 pg 26.7 - 34.0 pg [facility] MCHC (RBC) [Mass/Vol] 31.8 g/dL 29.9 - 35.2 g/dL [facility] MCV (RBC) [Entitic vol] 96.4 fL 81.0 - 99.0 fL [facility] MONOCYTES ABSOLUTE AUTO 0.8 [facility] Monocytes/100 WBC (Bld) 10 % 1.7 - 12.0 % [facility] NEUTROPHILS ABSOLUTE AUTO 5.5 [facility] Neutrophils/100 WBC (Bld) 68.8 % 43.0 - 75.0 % [facility] Platelet mean volume (Bld) [Entitic vol] 11.4 fL 9.5 - 13.5 fL [facility] TBH EO # 0.2 [facility] TB PLT 197 [facility] TB RBC 4.7 [facility] TB WBC 8.1 [facility] TACROLIMUS (FK506), BLOODon 02-17-2024 TACROLIMUS (FK506), BLOOD 4.5 ng/mL 2.0 - 20.0 ng/mL [facility] Comment on above: This test was develo ped and its performance characteristics determined by [employer]. It has not been cleared or approved by the Food and Drug Administration. Trough (immediately following transplant) 15.0 Trough (steady state, 2 weeks or more after transplant): 3.0 - 8.0 Performed by LC-MS/MS technology. Performed at: [address] [id number] [place] [employer] Operator: Marizol Singleton MD, Phone: [phone] [facility] ALL CBC WITH AUTO DIFFon BASOPHILS ABSOLUTE AUTO 0 [facility] Basophils/100 WBC (Bld) 0.3 % 0.2 - 2.0 % [facility] Eosinophils/100 WBC (Bld) 2.1 % 0.9 - 7.0 % [facility] Erythrocyte distribution width (RBC) [Ratio] 14.7 % 11.0 - 15.0 % [facility] Hematocrit (Bld) [Volume fraction] 43.3 % 36.0 - 48.0 % [facility] Hemoglobin (Bld) [Mass/Vol] 14.2 g/dL 12.0 - 16.0 g/dL [facility] IMMATURE GRANULOCYTES ABS AUTO 0.03 [facility] Immature granulocytes/100 WBC (Bld) 0.4 % 0.0 - 0.5 % [facility] LYMPHOCYTES ABSOLUTE AUTO 1.4 [facility] Lymphocytes/100 WBC (Bld) 20.7 % 20.5 - 60.0 % [facility] MCH (RBC) [Entitic mass] 30.9 pg 26.7 - 34.0 pg [facility] MCHC (RBC) [Mass/Vol] 32.8 g/dL 29.9 - 35.2 g/dL [facility] MCV (RBC) [Entitic vol] 94.1 fL 81.0 - 99.0 fL [facility] MONOCYTES ABSOLUTE AUTO 0.7 [facility] Monocytes/100 WBC (Bld) 10.8 % 1.7 - 12.0 % [facility] NEUTROPHILS ABSOLUTE AUTO 4.4 [facility] Neutrophils/100 WBC (Bld) 65.7 % 43.0 - 75.0 % [facility] Platelet mean volume (Bld) [Entitic vol] 11.3 fL 9.5 - 13.5 fL [facility] TBH EO # 0.1 [facility] TBH PLT 193 [facility] RBC 4.6 [facility] TBH WBC 6.7 [facility] ALL MAGNESIUMon 02-13-2024 Magnesium [Mass/Vol] 1.7 mg/dL Low 1.8 - 2 .4 mg/dL [facility] ALL PHOSPHOROUSon 02-13-2024 Phosphate [Mass/Vol] 3.4 mg/dL 2.6 - 4 .7 mg/dL [facility] ALL URIC ACIDon 02-13-2024 Urate [Mass/Vol] 4.7 mg/dL 2.6 - 6.0 mg/dL [facility] CMP (CMP) (FOR REMOTE FH C USE)on 02-13-2024 Albumin [Mass/Vol] 3.6 g/dL 3.4 - 5.0 g/dL [facility] ALBUMIN GLOBULIN RATIO 1.2 [facility] ALP [Catalytic activity/Vol] 131 U/L High 46 - 116 U/L [facility] ALT [Catalytic activity/Vol] 16 U/L 14 - 59 U/L [facility] Anion gap [Moles/Vol] 14 mmol/L [facility] AST [Catalytic activity/Vol] 13 U/L Low 15 - 37 U/L [facility] Bilirubin [Mass/Vol] 0.6 mg/dL 0.2 - 1 .0 mg/dL [facility] Calcium [Mass/Vol] 9.1 mg/dL 8.5 - 10. 1 mg/dL [facility] Chloride [Moles/Vol] 108 mmol/L High 98 - 10 7 mmol/L [facility] CO2 [Moles/Vol] 26.1 mmol/L 21.0 - 32.0 mmol/L [facility] Creatinine [Mass/Vol] 0.97 mg/dL 0.55 - 1.02 mg/dL [facility] GFR/1.73 sq M.predicted CKD-EPI (S/P/Bld) [Vol rate/Area] >60 >=60 mL/min/1.73m 2 [facility] Globulin (S) [Mass/Vol] 2.9 g/dL [facility] Glucose [Mass/Vol] 95 mg/dL 74 - 106 mg/dL [facility] Potassium [Moles/Vol] 4.1 mmol/L 3.5 - 5.1 mmol/L [facility] Protein [Mass/Vol] 6.5 g/dL 6.4 - 8.2 g/dL [facility] Sodium [Moles/Vol] 144 mmol/L 136 - 145 mmol/L [facility] TBH EGFR-NON AF MALTESE 57 Low >=60 mL/min/1.73m 2 [facility] Urea nitrogen [Mass/Vol] 16 mg/dL 7.0 - 18.0 mg/dL [facility] Urea nitrogen/Creatinine [Mass ratio] 16.5 mg/mg [facility] METRO BILIRUBIN, DIRECTon Bilirubin.indirect [Mass/Vol] 0.1 mg/dL 0.0 - 0.2 mg/dL [facility] No Panel Informationon 02-12 Interpretation and review of laboratory results Abnormal [facility] ALL CBC WITH AUTO DIFFon BASOPHILS ABSOLUTE AUTO 0 [facility] Basophils/100 WBC (Bld) 0.1 % Low 0.2 - 2.0 % [facility] Eosinophils/100 WBC (Bld) 2.5 % 0.9 - 7.0 % [facility] Erythrocyte distribution width (RBC) [Ratio] 14.6 % 11.0 - 15.0 % [facility] Hematocrit (Bld) [Volume fraction] 43.8 % 36.0 - 48.0 % [facility] Hemoglobin (Bld) [Mass/Vol] 14 g/dL 12.0 - 16.0 g/dL [facility] IMMATURE GRANULOCYTES ABS AUTO 0.02 [facility] Immature granulocytes/100 WBC (Bld) 0.3 % 0.0 - 0.5 % [facility] Interpretation and review of laboratory results Abnormal [facility] LYMPHOCYTES ABSOLUTE AUTO 1.4 [facility] Lymphocytes/100 WBC (Bld) 18.7 % Low 20.5 - 60.0 % [facility] MCH (RBC) [Entitic mass] 30.3 pg 26.7 - 34.0 pg [facility] MCHC (RBC) [Mass/Vol] 32 g/dL 29.9 - 35.2 g/dL [facility] MCV (RBC) [Entitic vol] 94.8 fL 81.0 - 99.0 fL [facility] MONOCYTES ABSOLUTE AUTO 0.8 [facility] Monocytes/100 WBC (Bld) 11.1 % 1.7 - 12.0 % [facility] NEUTROPHILS ABSOLUTE AUTO 4.9 [facility] Neutrophils/100 WBC (Bld) 67.3 % 43.0 - 75.0 % [facility] Platelet mean volume (Bld) [Entitic vol] 11.2 fL 9.5 - 13.5 fL [facility] EO # 0.2 [facility] PLT 219 [facility] RBC 4.62 [facility] WBC 7.3 [facility] ALL CBC WITH AUTO DIFFon BASOPHILS ABSOLUTE AUTO 0.0 [facility] Basophils/100 WBC (Bld) 0.3 % 0.2 - 2.0 % [facility] Eosinophils/100 WBC (Bld) 3.6 % 0.9 - 7.0 % [facility] Erythrocyte distribution width (RBC) [Ratio] 14.7 % 11.0 - 15.0 % [facility] Hematocrit (Bld) [Volume fraction] 46.0 % 36.0 - 48.0 % [facility] Hemoglobin (Bld) [Mass/Vol] 14.7 g/dL 12.0 - 16.0 g/dL [facility] IMMATURE GRANULOCYTES ABS AUTO 0.01 [facility] Immature granulocytes/100 WBC (Bld) 0.2 % 0.0 - 0.5 % [facility] LYMPHOCYTES ABSOLUTE AUTO 1.4 [facility] Lymphocytes/100 WBC (Bld) 22.4 % 20.5 - 60.0 % [facility] MCH (RBC) [Entitic mass] 30.1 pg 26.7 - 34.0 pg [facility] MCHC (RBC) [Mass/Vol] 32.0 g/dL 29.9 - 35.2 g/dL [facility] MCV (RBC) [Entitic vol] 94.3 fL 81.0 - 99.0 fL [facility] MONOCYTES ABSOLUTE AUTO 0.6 [facility] Monocytes/100 WBC (Bld) 9.6 % 1.7 - 12.0 % [facility] NEUTROPHILS ABSOLUTE AUTO 3.9 [facility] Neutrophils/100 WBC (Bld) 63.9 % 43.0 - 75.0 % [facility] Platelet mean volume (Bld) [Entitic vol] 11.6 fL 9.5 - 13.5 fL [facility] TBH EO # 0.2 [facility] TBH PLT 202 [facility] TBH RBC 4.88 [facility] TBH WBC 6.0 [facility] MLR HEMOGLOBIN A1Con 024 Glucose [Mass/Vol] 108 mg/dL [facility] HbA1c (Bld) [Mass fraction] 5.4 % 4.5 - 6.2 % [facility] Comment on above: ADA RECOMMENDED LIMI T 4.0 - 6.0 ADA THERAPEUTIC TARGET < 7.0 ACTION SUGGESTED > 7.0 [facility] [place] Documentationon 12-09-2023 Documentation [id number] Tanika Grimm 1955 F Date Provider Department Center 12/09/2023 FERNANDA MARVIN None Family History Family Status - Relation Status Age at Mother Father Reason for Visit and Comments: Prior auth : Mycophenolate [Other] Normal [facility] Documentationon 11-26-2023 Documentation [id number] Tanika Grimm 1955 F Date Provider Department Center 11/26/2023 [id number], FERNANDA TXP None Family History Family Status - Relation Status Age at Mother Father Reason for Visit and Comments: Prior auth Tac 0.5mg [Other] [facility] Documentationon 10-27-2023 Documentation [id number] Tanika Grimm 1955 Provider Department Center 10/27/2023 [id number], TYMARA TXP None Family History Family Status - Relation Status Age at Mother Father [facility] 29on 09-23-2023 29 Addended by: DIANE LE on: 09/23/2023 03:27 PM Modules accepted: Orders [facility] Follow-Upon 09-23-2023 Follow-Up [id number] Tanika Grimm 1955 Provider Department Center 09/23/2023 124-VIRGIL HAYNES TXP None Family History Family Status - Relation Status Age at Mother Father Level of Service:[id number] ME OFFICE/OUTPATIENT ESTABLISHED MOD MDM 30 MIN Reason for Visit and Comments: Kidney Follow-up [[id number]] - Pt has been having sores in her mouth for the past month. [facility] No Panel InformationOrdered By: Lindsay Soria on 08-30-2023 Quick Strep (POC) [facility] Documentationon 08-26-2023 Documentation [id number] Tanika Grimm 1955 Provider Department Center 08/26/2023 750-RUTH, TYMARA TXP None No family history on file [facility] Documentationon 05-19-2023 Documentation [id number] Tanika Grimm 1955 Date Provider Department Center 05/19/2023 [id number], TYMARA TXP None No family history on file [facility] COVID/FLU/RSV RT-PCRon 03-27 SARS-CoV-2 (COVID-19) RNA MURALI+probe Ql (Unsp spec) Negative [place] [facility] Other COVID/FLU/RSV RT-PCR Negative [facility] 5 examples Other Quick Strepon 03-27-2023 S. pyogenes Org specific cx Ql (Throat) Negative [facility] 5 examples Other Quick Strep [facility] 5 examples Other BILIRUBIN CONJUGATED (DIRECT )on 08-12-2022 BILI, CONJUGATED 0.1 mg/dL Normal 0.0-0.2 [facility] [facility] Comment on above: Performed By: #### D DAVIDSON, MG, PHOS, CMP, LIPID, URIC #### [facility] [address] [address] [address] Sarmad Patino GLYCOHEMOGLOBIN A1Con 2022 ADA RECOMMENDATION SEE BELOW Normal [facility] Comment on above: Result Comment: ADA RECOMMENDED LIMIT 4.0 - 6.0 ADA THERAPEUTIC TARGET < 7.0 ACTION SUGGESTED > 7.0 Performed By: #### D DAVIDSON, MG, PHOS, CMP, LIPID, URIC #### [facility] [address] [place] [address] Dr. Sarmad Patino Glucose [Mass/Vol] 108 mg/dL Normal [facility] Comment on above: Performed By: #### D DAVIDSON, MG, PHOS, CMP, LIPID, URIC #### [facility] [address] [address] [address] Sarmad Patino HbA1c (Bld) [Mass fraction] 5.4 % Normal 4.5-6.2 [facility] Comment on above: Performed By: #### D DAVIDSON, MG, PHOS, CMP, LIPID, URIC #### [facility] [address] [address] [address] Sarmad Patino MAGNESIUMon 08-12-2022 Magnesium [Mass/Vol] 1.7 mg/dL Critically low 1.8-2.4 [facility] Comment on above: Performed By: #### D DAVIDSON, MG, PHOS, CMP, LIPID, URIC #### [facility] [address] [place] [address] Dr. Sarmad Patino PHOSPHORUSon 08-12-2022 Phosphate [Mass/Vol] 3.9 mg/dL Normal 2.6-4.7 [facility] Comment on above: Performed By: #### U JUVE, LIPID, MG, CMP, DBIL, PHOS #### [facility] [address] [place] [address] Dr. Sarmad Patino PROF 14(COMP METB)on 023 Albumin [Mass/Vol] 3.9 g/dL Normal 3.4-5.0 [facility] Comment on above: Performed By: #### D DAVIDSON, MG, PHOS, CMP, LIPID, URIC #### [facility] [address] [place] [address] Dr. Sarmad Patino Albumin/Globulin [Mass ratio] 1.2 {ratio} Normal [facility] Comment on above: Performed By: #### D DAVIDSON, MG, PHOS, CMP, LIPID, URIC #### [facility] [address] [place] [address] Dr. Sarmad Patino ALP [Catalytic activity/Vol] 126 U/L Critically high 46-116 [facility] Comment on above: Performed By: #### D DAVIDSON, MG, PHOS, CMP, LIPID, URIC #### [facility] [address] [place] [address] Dr. Sarmad Patino ALT [Catalytic activity/Vol] 18 U/L Normal 14-59 [facility] Comment on above: Performed By: #### D DAVIDSON, MG, PHOS, CMP, LIPID, URIC #### [facility] [address] [place] [address] Dr. Sarmad Patino Anion gap [Moles/Vol] 10.4 mmol/L Normal [facility] Comment on above: Performed By: #### D DAVIDSON, MG, PHOS, CMP, LIPID, URIC #### [facility] [address] [place] [address] Dr. Sarmad Patino AST [Catalytic activity/Vol] 14 U/L Critically low 15-37 [facility] Comment on above: Performed By: #### D DAVIDSON, MG, PHOS, CMP, LIPID, URIC #### [facility] [address] [place] [address] Dr. Sarmad Patino Bilirubin [Mass/Vol] 0.7 mg/dL Normal 0.2-1.0 [facility] Comment on above: Performed By: #### D DAVIDSON, MG, PHOS, CMP, LIPID, URIC #### [facility] [address] [address] [address] Sarmad Patino Calcium [Mass/Vol] 9.8 mg/dL Normal 8.5-10.1 [facility] Comment on above: Performed By: #### D DAVIDSON, MG, PHOS, CMP, LIPID, URIC #### [facility] [address] [address] [address] Sarmad Patino Chloride [Moles/Vol] 106 mmol/L Normal 98-107 [facility] Comment on above: Performed By: #### D DAVIDSON, MG, PHOS, CMP, LIPID, URIC #### [facility] [address] [address] [address] Sarmad Patino CO2 [Moles/Vol] 32.1 mmol/L Critically high 21.0-32.0 [facility] Comment on above: Performed By: #### D DAVIDSON, MG, PHOS, CMP, LIPID, URIC #### [facility] [address] [place] [address] Dr. Sarmad Patino Creatinine [Mass/Vol] 0.92 mg/dL Normal 0.55-1.02 [facility] Comment on above: Performed By: #### D DAVIDSON, MG, PHOS, CMP, LIPID, URIC #### [facility] [address] [place] [address] Dr. Sarmad Patino EGFR-AF MALTESE >60 Normal >=60 [facility] Comment on above: Performed By: #### D DAVIDSON, MG, PHOS, CMP, LIPID, URIC #### [facility] [address] [place] [address] Dr. Sarmad Patino EGFR-NON AF MALTESE >60 Normal >=60 [facility] Comment on above: Performed By: #### D DAVIDSON, MG, PHOS, CMP, LIPID, URIC #### [facility] [address] [address] [address] Sarmad Patino Globulin (S) [Mass/Vol] 3.3 g/dL Normal [facility] Comment on above: Performed By: #### D DAVIDSON, MG, PHOS, CMP, LIPID, URIC #### [facility] [address] [address] [address] Sarmad Patino Glucose [Mass/Vol] 102 mg/dL Normal 74-106 [facility] Comment on above: Performed By: #### D DAVIDSON, MG, PHOS, CMP, LIPID, URIC #### [facility] [address] [address] [address] Sarmad Patino Potassium [Moles/Vol] 4.5 mmol/L Normal 3.5-5.1 [facility] Comment on above: Performed By: #### D DAVIDSON, MG, PHOS, CMP, LIPID, URIC #### [facility] [address] [place] [address] Dr. Sarmad Patino Protein [Mass/Vol] 7.2 g/dL Normal 6.4-8.2 [facility] Comment on above: Performed By: #### D DAVIDSON, MG, PHOS, CMP, LIPID, URIC #### [facility] [address] [place] [address] Dr. Sarmad Patino Sodium [Moles/Vol] 144 mmol/L Normal 136-145 [facility] Comment on above: Performed By: #### D DAVIDSON, MG, PHOS, CMP, LIPID, URIC #### [facility] [address] [address] [address] Sarmad Patino Urea nitrogen [Mass/Vol] 20.0 mg/dL Critically high 7.0-18.0 [facility] Comment on above: Performed By: #### D DAVIDSON, MG, PHOS, CMP, LIPID, URIC #### [facility] [address] [address] [address] Sarmad Patino Urea nitrogen/Creatinine [Mass ratio] 21.7 mg/mg Normal [facility] Comment on above: Performed By: #### D DAVIDSON, MG, PHOS, CMP, LIPID, URIC #### [facility] [address] [address] [address] Sarmad Patino URIC ACID SERUMon 08-12-2022 Urate [Mass/Vol] 5.2 mg/dL Normal 2.6-6.0 [facility] Comment on above: Performed By: #### D DAVIDSON, MG, PHOS, CMP, LIPID, URIC #### [facility] [address] [address] [address] Sarmad Patino MG MAMM SCREEN 3D DAVIDSON CADon 07-23-2022 MG MAMM SCREEN 3D DAVIDSON CAD Patient: TANIKA GRIMM Exam Date: 07/23/2022 : 1955 Gender:F Ordering : DR RAMON CARROLL M.D. Admission #: [id number] Family : Order #: [id number] CLICK HERE TO VIEW EXAM RADIOLOGY REPORT [...] (FK506), Blood 3.8 ng/mL Normal 2.0-20.0 [facility] Comment on above: Result Comment: Trou gh (immediately following transplant) 15.0 . Trough (steady state, 2 weeks or more after transplant): 3.0 - 8.0 . Performed by LC-MS/MS technology. Performed By: #### D DAVIDSON, MG, PHOS, CMP, LIPID, URIC #### [facility] [address] [address] [address] Sarmad Patino BILIRUBIN CONJUGATED (DIRECT )on 07-08-2022 BILI, CONJUGATED 0.1 mg/dL Normal 0.0-0.2 [facility] Comment on above: Performed By: #### U JUVE, LIPID, MG, CMP, DBIL, PHOS #### [facility] [address] [address] [address] Sarmad Patino GLYCOHEMOGLOBIN A1Con 2022 ADA RECOMMENDATION SEE BELOW Normal [facility] Comment on above: Result Comment: ADA RECOMMENDED LIMIT 4.0 - 6.0 ADA THERAPEUTIC TARGET < 7.0 ACTION SUGGESTED > 7.0 Performed By: #### D DAVIDSON, MG, PHOS, CMP, LIPID, URIC #### [facility] [address] [place] [address] Dr. Sarmad Patino Glucose [Mass/Vol] 105 mg/dL Normal [facility] Comment on above: Performed By: #### D DAVIDSON, MG, PHOS, CMP, LIPID, URIC #### [facility] [address] [address] [address] Sarmad Patino HbA1c (Bld) [Mass fraction] 5.3 % Normal 4.5-6.2 [facility] Comment on above: Performed By: #### D DAVIDSON, MG, PHOS, CMP, LIPID, URIC #### [facility] [address] [address] [address] Sarmad Patino MAGNESIUMon 07-08-2022 Magnesium [Mass/Vol] 1.8 mg/dL Normal 1.8-2.4 [facility] Comment on above: Performed By: #### U JUVE, LIPID, MG, CMP, DBIL, PHOS #### [facility] [address] [place] [address] Dr. Sarmad Patino PHOSPHORUSon 07-08-2022 Phosphate [Mass/Vol] 3.8 mg/dL Normal 2.6-4.7 [facility] Comment on above: Performed By: #### U JUVE, LIPID, MG, CMP, DBIL, PHOS #### [facility] [address] [place] [address] Dr. Sarmad Patino PROF 14(COMP METB)on 023 Albumin [Mass/Vol] 3.7 g/dL Normal 3.4-5.0 [facility] Comment on above: Performed By: #### U JUVE, LIPID, MG, CMP, DBIL, PHOS #### [facility] [address] [place] [address] Dr. Sarmad Patino Albumin/Globulin [Mass ratio] 1.1 {ratio} Normal [facility] Comment on above: Performed By: #### U JUVE, LIPID, MG, CMP, DBIL, PHOS #### [facility] [address] [place] [address] Dr. Sarmad Patino ALP [Catalytic activity/Vol] 124 U/L Critically high 46-116 [facility] Comment on above: Performed By: #### U JUVE, LIPID, MG, CMP, DBIL, PHOS #### [facility] [address] [place] [address] Dr. Sarmad Patino ALT [Catalytic activity/Vol] 20 U/L Normal 14-59 [facility] Comment on above: Performed By: #### U JUVE, LIPID, MG, CMP, DBIL, PHOS #### [facility] [address] [place] [address] Dr. Sarmad Patino Anion gap [Moles/Vol] 11.5 mmol/L Normal [facility] Comment on above: Performed By: #### U JUVE, LIPID, MG, CMP, DBIL, PHOS #### [facility] [address] [place] [address] Dr. Sarmad Patino AST [Catalytic activity/Vol] 12 U/L Critically low 15-37 [facility] Comment on above: Performed By: #### U JUVE, LIPID, MG, CMP, DBIL, PHOS #### [facility] [address] [place] [address] Dr. Sarmad Patino Bilirubin [Mass/Vol] 0.5 mg/dL Normal 0.2-1.0 [facility] Comment on above: Performed By: #### U JUVE, LIPID, MG, CMP, DBIL, PHOS #### [facility] [address] [address] [address] Sarmad Patino Calcium [Mass/Vol] 9.6 mg/dL Normal 8.5-10.1 [facility] Comment on above: Performed By: #### U JUVE, LIPID, MG, CMP, DBIL, PHOS #### [facility] [address] [address] [address] Sarmad Patino Chloride [Moles/Vol] 106 mmol/L Normal 98-107 [facility] Comment on above: Performed By: #### U JUVE, LIPID, MG, CMP, DBIL, PHOS #### [facility] [address] [place] [address] Dr. Sarmad Patino CO2 [Moles/Vol] 29.7 mmol/L Normal 21.0-32.0 [facility] Comment on above: Performed By: #### U JUVE, LIPID, MG, CMP, DBIL, PHOS #### [facility] [address] [place] [address] Dr. Sarmad Patino Creatinine [Mass/Vol] 0.77 mg/dL Normal 0.55-1.02 [facility] Comment on above: Performed By: #### U JUVE, LIPID, MG, CMP, DBIL, PHOS #### [facility] [address] [place] [address] Dr. Sarmad Patino EGFR-AF MALTESE >60 Normal >=60 [facility] Comment on above: Performed By: #### U JUVE, LIPID, MG, CMP, DBIL, PHOS #### [facility] [address] [place] [address] Dr. Sarmad Patino EGFR-NON AF MALTESE >60 Normal >=60 [facility] Comment on above: Performed By: #### U JUVE, LIPID, MG, CMP, DBIL, PHOS #### [facility] [address] [place] [address] Dr. Samrad Patino Globulin (S) [Mass/Vol] 3.4 g/dL Normal [facility] Comment on above: Performed By: #### U JUVE, LIPID, MG, CMP, DBIL, PHOS #### [facility] [address] [address] [address] Sarmad Patino Glucose [Mass/Vol] 97 mg/dL Normal 74-106 [facility] Comment on above: Performed By: #### U JUVE, LIPID, MG, CMP, DBIL, PHOS #### [facility] [address] [address] [address] Sarmad Patino Potassium [Moles/Vol] 4.2 mmol/L Normal 3.5-5.1 [facility] Comment on above: Performed By: #### U JUVE, LIPID, MG, CMP, DBIL, PHOS #### [facility] [address] [place] [address] Dr. Sarmad Patino Protein [Mass/Vol] 7.1 g/dL Normal 6.4-8.2 [facility] Comment on above: Performed By: #### U JUVE, LIPID, MG, CMP, DBIL, PHOS #### [facility] [address] [place] [address] Dr. Sarmad Patino Sodium [Moles/Vol] 143 mmol/L Normal 136-145 [facility] Comment on above: Performed By: #### U JUVE, LIPID, MG, CMP, DBIL, PHOS #### [facility] [address] [place] [address] Dr. Sarmad Patino Urea nitrogen [Mass/Vol] 26.0 mg/dL Critically high 7.0-18.0 [facility] Comment on above: Performed By: #### U JUVE, LIPID, MG, CMP, DBIL, PHOS #### [facility] [address] [place] [address] Dr. Sarmad Patino Urea nitrogen/Creatinine [Mass ratio] 33.8 mg/mg Normal [facility] Comment on above: Performed By: #### U JUVE, LIPID, MG, CMP, DBIL, PHOS #### [facility] [address] [place] [address] Dr. Sarmad Patino URIC ACID SERUMon 07-08-2022 Urate [Mass/Vol] 4.7 mg/dL Normal 2.6-6.0 [facility] Comment on above: Performed By: #### U JUVE, LIPID, MG, CMP, DBIL, PHOS #### [facility] [address] [place] [address] Dr. Sarmad Patino FK506 (TACROLIMUS) WHOLE BLO ODon 06-13-2022 Tacrolimus (FK506), Blood 3.0 ng/mL Normal 2.0-20.0 [facility] Comment on above: Result Comment: Trou gh (immediately following transplant) 15.0 . Trough (steady state, 2 weeks or more after transplant): 3.0 - 8.0 . Performed by LC-MS/MS technology. Performed By: #### D DAVIDSON, MG, PHOS, CMP, LIPID, URIC #### [facility] [address] [place] [address] Dr. Sarmad Patino BK VIRUS PCR QUANTon 023 BKV DNA QUANT PCR PLASMA Negative Normal Negative [facility] Comment on above: Result Comment: No B K DNA detected. . The linear range of the assay is 22 - 100,000,000 IU/mL. Performed By: #### B KVIRUS #### [facility] [address] [place] [address] Dr. Sarmad Patino Log10 BKV DNA Plasma Normal [facility] Comment on above: Performed By: #### B KVIRUS #### [facility] [address] [place] [address] Dr. Sarmad Patino BILIRUBIN CONJUGATED (DIRECT )on 06-10-2022 BILI, CONJUGATED 0.1 mg/dL Normal 0.0-0.2 [facility] Comment on above: Performed By: #### U JUVE, LIPID, MG, CMP, DBIL, PHOS #### [facility] [address] [place] [address] Dr. Sarmad Patino GLYCOHEMOGLOBIN A1Con 2022 ADA RECOMMENDATION SEE BELOW Normal [facility] Comment on above: Result Comment: ADA RECOMMENDED LIMIT 4.0 - 6.0 ADA THERAPEUTIC TARGET < 7.0 ACTION SUGGESTED > 7.0 Performed By: #### D DAVIDSON, MG, PHOS, CMP, LIPID, URIC #### [facility] [address] [address] [address] Sarmad Patino Glucose [Mass/Vol] 114 mg/dL Normal [facility] Comment on above: Performed By: #### D DAVIDSON, MG, PHOS, CMP, LIPID, URIC #### [facility] [address] [address] [address] Sarmad Patino HbA1c (Bld) [Mass fraction] 5.6 % Normal 4.5-6.2 [facility] Comment on above: Performed By: #### D DAVIDSON, MG, PHOS, CMP, LIPID, URIC #### [facility] [address] [address] [address] Sarmad Patino MAGNESIUMon 06-10-2022 Magnesium [Mass/Vol] 1.6 mg/dL Critically low 1.8-2.4 [facility] Comment on above: Performed By: #### U JUVE, LIPID, MG, CMP, DBIL, PHOS #### [facility] [address] [address] [address] Sarmad Patino PROF 14(COMP METB)on 023 Albumin [Mass/Vol] 3.7 g/dL Normal 3.4-5.0 [facility] Comment on above: Performed By: #### U JUVE, LIPID, MG, CMP, DBIL, PHOS #### [facility] [address] [address] [address] Sarmad Patino Albumin/Globulin [Mass ratio] 1.1 {ratio} Normal [facility] Comment on above: Performed By: #### U JUVE, LIPID, MG, CMP, DBIL, PHOS #### [facility] [address] [address] [address] Sarmad Patino ALP [Catalytic activity/Vol] 142 U/L Critically high 46-116 [facility] Comment on above: Performed By: #### U JUVE, LIPID, MG, CMP, DBIL, PHOS #### [facility] [address] [address] [address] Sarmad Patino ALT [Catalytic activity/Vol] 29 U/L Normal 14-59 [facility] Comment on above: Performed By: #### U JUVE, LIPID, MG, CMP, DBIL, PHOS #### [facility] [address] [address] [address] Sarmad Patino Anion gap [Moles/Vol] 11.1 mmol/L Normal Th e [facility] Comment on above: Performed By: #### U JUVE, LIPID, MG, CMP, DBIL, PHOS #### [facility] [address] [place] [address] Dr. Sarmad Patino AST [Catalytic activity/Vol] 19 U/L Normal 15-37 [facility] Comment on above: Performed By: #### U JUVE, LIPID, MG, CMP, DBIL, PHOS #### [facility] [address] [place] [address] Dr. Sarmad Patino Bilirubin [Mass/Vol] 0.6 mg/dL Normal 0.2-1.0 [facility] Comment on above: Performed By: #### U JUVE, LIPID, MG, CMP, DBIL, PHOS #### [facility] [address] [place] [address] Dr. Sarmad Patino Calcium [Mass/Vol] 9.8 mg/dL Normal 8.5-10.1 [facility] Comment on above: Performed By: #### U JUVE, LIPID, MG, CMP, DBIL, PHOS #### [facility] [address] [place] [address] Dr. Sarmad Patino Chloride [Moles/Vol] 103 mmol/L Normal 98-107 [facility] Comment on above: Performed By: #### U JUVE, LIPID, MG, CMP, DBIL, PHOS #### [facility] [address] [place] [address] Dr. Sarmad Patino CO2 [Moles/Vol] 30.7 mmol/L Normal 21.0-32.0 [facility] Comment on above: Performed By: #### U JUVE, LIPID, MG, CMP, DBIL, PHOS #### [facility] [address] [place] [address] Dr. Sarmad Patino Creatinine [Mass/Vol] 0.79 mg/dL Normal 0.55-1.02 [facility] Comment on above: Performed By: #### U JUVE, LIPID, MG, CMP, DBIL, PHOS #### [facility] [address] [address] [address] Sarmad Patino EGFR-AF MALTESE >60 Normal >=60 [facility] Comment on above: Performed By: #### U JUVE, LIPID, MG, CMP, DBIL, PHOS #### [facility] [address] [address] [address] Sarmad Patino EGFR-NON AF MALTESE >60 Normal >=60 [facility] Comment on above: Performed By: #### U JUVE, LIPID, MG, CMP, DBIL, PHOS #### [facility] [address] [place] [address] Dr. Sarmad Patino Globulin (S) [Mass/Vol] 3.4 g/dL Normal [facility] Comment on above: Performed By: #### U JUVE, LIPID, MG, CMP, DBIL, PHOS #### [facility] [address] [address] [address] Sarmad Patino Glucose [Mass/Vol] 94 mg/dL Normal 74-106 [facility] Comment on above: Performed By: #### U JUVE, LIPID, MG, CMP, DBIL, PHOS #### [facility] [address] [address] [address] Sarmad Patino Potassium [Moles/Vol] 3.8 mmol/L Normal 3.5-5.1 [facility] Comment on above: Performed By: #### U JUVE, LIPID, MG, CMP, DBIL, PHOS #### [facility] [address] [address] [address] Sarmad Patino Protein [Mass/Vol] 7.1 g/dL Normal 6.4-8.2 [facility] Comment on above: Performed By: #### U JUVE, LIPID, MG, CMP, DBIL, PHOS #### [facility] [address] [address] [address] Sarmad Patino Sodium [Moles/Vol] 141 mmol/L Normal 136-145 [facility] Comment on above: Performed By: #### U JUVE, LIPID, MG, CMP, DBIL, PHOS #### [facility] [address] [place] [address] Dr. Sarmad Patino Urea nitrogen [Mass/Vol] 17.0 mg/dL Normal 7.0-18.0 [facility] Comment on above: Performed By: #### U JUVE, LIPID, MG, CMP, DBIL, PHOS #### [facility] [address] [place] [address] Dr. Sarmad Patino Urea nitrogen/Creatinine [Mass ratio] 21.5 mg/mg Normal [facility] Comment on above: Performed By: #### U JUVE, LIPID, MG, CMP, DBIL, PHOS #### [facility] [address] [place] [address] Dr. Sarmad Patino URIC ACID SERUMon 06-10-2022 Urate [Mass/Vol] 5.1 mg/dL Normal 2.6-6.0 [facility] Comment on above: Performed By: #### U JUVE, LIPID, MG, CMP, DBIL, PHOS #### [facility] [address] [place] [address] Dr. Sarmad Patino BK VIRUS PCR QUANTon 023 BKV DNA QUANT PCR PLASMA Negative Normal Negative [facility] Comment on above: Result Comment: No B K DNA detected. . The linear range of the assay is 22 - 100,000,000 IU/mL. Performed By: #### U JUVE, LIPID, MG, CMP, DBIL, PHOS #### [facility] [address] [place] [address] Dr. Sarmad Patino Log10 BKV DNA Plasma Normal [facility] Comment on above: Performed By: #### U JUVE, LIPID, MG, CMP, DBIL, PHOS #### [facility] [address] [place] [address] Dr. Sarmad Patino FK506 (TACROLIMUS) WHOLE BLO ODon 05-13-2022 Tacrolimus (FK506), Blood 4.1 ng/mL Normal 2.0-20.0 [facility] Comment on above: Result Comment: Trou gh (immediately following transplant) 15.0 . Trough (steady state, 2 weeks or more after transplant): 3.0 - 8.0 . Performed by LC-MS/MS technology. Performed By: #### U JUVE, LIPID, MG, CMP, DBIL, PHOS #### [facility] [address] [address] [address] Sarmad Patino BILIRUBIN CONJUGATED (DIRECT )on 05-10-2022 BILI, CONJUGATED 0.1 mg/dL Normal 0.0-0.2 [facility] Comment on above: Performed By: #### D DAVIDSON, MG, PHOS, CMP, LIPID, URIC #### [facility] [address] [address] [address] Sarmad Patino GLYCOHEMOGLOBIN A1Con 2022 ADA RECOMMENDATION SEE BELOW Normal [facility] Comment on above: Result Comment: ADA RECOMMENDED LIMIT 4.0 - 6.0 ADA THERAPEUTIC TARGET < 7.0 ACTION SUGGESTED > 7.0 Performed By: #### D DAVIDSON, MG, PHOS, CMP, LIPID, URIC #### [facility] [address] [address] [address] Sarmad Patino Glucose [Mass/Vol] 108 mg/dL Normal [facility] Comment on above: Performed By: #### D DAVIDSON, MG, PHOS, CMP, LIPID, URIC #### [facility] [address] [address] [address] Sarmad Patino HbA1c (Bld) [Mass fraction] 5.4 % Normal 4.5-6.2 [facility] Comment on above: Performed By: #### D DAVIDSON, MG, PHOS, CMP, LIPID, URIC #### [facility] [address] [address] [address] Sarmad Patino MAGNESIUMon 05-10-2022 Magnesium [Mass/Vol] 1.9 mg/dL Normal 1.8-2.4 [facility] Comment on above: Performed By: #### U JUVE, LIPID, MG, CMP, DBIL, PHOS #### [facility] [address] [address] [address] Sarmad Patino PROF 14(COMP METB)on 023 Albumin [Mass/Vol] 3.9 g/dL Normal 3.4-5.0 [facility] Comment on above: Performed By: #### D DAVIDSON, MG, PHOS, CMP, LIPID, URIC #### [facility] [address] [place] [address] Dr. Sarmad Patino Albumin/Globulin [Mass ratio] 1.2 {ratio} Normal [facility] Comment on above: Performed By: #### D DAVIDSON, MG, PHOS, CMP, LIPID, URIC #### [facility] [address] [place] [address] Dr. Sarmad Patino ALP [Catalytic activity/Vol] 114 U/L Normal 46-116 [facility] Comment on above: Performed By: #### D DAVIDSON, MG, PHOS, CMP, LIPID, URIC #### [facility] [address] [place] [address] Dr. Sarmad Patino ALT [Catalytic activity/Vol] 18 U/L Normal 14-59 [facility] Comment on above: Performed By: #### D DAVIDSON, MG, PHOS, CMP, LIPID, URIC #### [facility] [address] [place] [address] Dr. Sarmad Patino Anion gap [Moles/Vol] 15.9 mmol/L Normal [facility] Comment on above: Performed By: #### D DAVIDSON, MG, PHOS, CMP, LIPID, URIC #### [facility] [address] [place] [address] Dr. Sarmad Patino AST [Catalytic activity/Vol] 17 U/L Normal 15-37 [facility] Comment on above: Performed By: #### D DAVIDSON, MG, PHOS, CMP, LIPID, URIC #### [facility] [address] [place] [address] Dr. Sarmad Patino Bilirubin [Mass/Vol] 0.4 mg/dL Normal 0.2-1.0 [facility] Comment on above: Performed By: #### D DAVIDSON, MG, PHOS, CMP, LIPID, URIC #### [facility] [address] [place] [address] Dr. Sarmad Patino Calcium [Mass/Vol] 9.8 mg/dL Normal 8.5-10.1 [facility] Comment on above: Performed By: #### D DAVIDSON, MG, PHOS, CMP, LIPID, URIC #### [facility] [address] [place] [address] Dr. Sarmad Patino Chloride [Moles/Vol] 103 mmol/L Normal 98-107 [facility] Comment on above: Performed By: #### D DAVIDSON, MG, PHOS, CMP, LIPID, URIC #### [facility] [address] [address] [address] Sarmad Patino CO2 [Moles/Vol] 29.2 mmol/L Normal 21.0-32.0 [facility] Comment on above: Performed By: #### D DAVIDSON, MG, PHOS, CMP, LIPID, URIC #### [facility] [address] [place] [address] Dr. Sarmad Patino Creatinine [Mass/Vol] 0.74 mg/dL Normal 0.55-1.02 [facility] Comment on above: Performed By: #### D DAVIDSON, MG, PHOS, CMP, LIPID, URIC #### [facility] [address] [place] [address] Dr. Sarmad Patino EGFR-AF MALTESE >60 Normal >=60 [facility] Comment on above: Performed By: #### D DAVIDSON, MG, PHOS, CMP, LIPID, URIC #### [facility] [address] [place] [address] Dr. Sarmad Patino EGFR-NON AF MALTESE >60 Normal >=60 [facility] Comment on above: Performed By: #### D DAVIDSON, MG, PHOS, CMP, LIPID, URIC #### [facility] [address] [address] [address] Sarmad Patino Globulin (S) [Mass/Vol] 3.2 g/dL Normal [facility] Comment on above: Performed By: #### D DAVIDSON, MG, PHOS, CMP, LIPID, URIC #### [facility] [address] [place] [address] Dr. Sarmad Patino Glucose [Mass/Vol] 94 mg/dL Normal 74-106 [facility] Comment on above: Performed By: #### D DAVIDSON, MG, PHOS, CMP, LIPID, URIC #### [facility] [address] [address] [address] Sarmad Patino Potassium [Moles/Vol] 4.1 mmol/L Normal 3.5-5.1 [facility] Comment on above: Performed By: #### D DAVIDSON, MG, PHOS, CMP, LIPID, URIC #### [facility] [address] [place] [address] Dr. Sarmad Patino Protein [Mass/Vol] 7.1 g/dL Normal 6.4-8.2 [facility] Comment on above: Performed By: #### D DAVIDSON, MG, PHOS, CMP, LIPID, URIC #### [facility] [address] [place] [address] Dr. Sarmad Patino Sodium [Moles/Vol] 144 mmol/L Normal 136-145 [facility] Comment on above: Performed By: #### D DAVIDSON, MG, PHOS, CMP, LIPID, URIC #### [facility] [address] [address] [address] Sarmad Patino Urea nitrogen [Mass/Vol] 18.0 mg/dL Normal 7.0-18.0 [facility] Comment on above: Performed By: #### D DAVIDSON, MG, PHOS, CMP, LIPID, URIC #### [facility] [address] [place] [address] Dr. Sarmad Patino Urea nitrogen/Creatinine [Mass ratio] 24.3 mg/mg Normal [facility] Comment on above: Performed By: #### D DAVIDSON, MG, PHOS, CMP, LIPID, URIC #### [facility] [address] [place] [address] Dr. Sarmad Patino URIC ACID SERUMon 05-10-2022 Urate [Mass/Vol] 5.1 mg/dL Normal 2.6-6.0 [facility] Comment on above: Performed By: #### U JUVE, LIPID, MG, CMP, DBIL, PHOS #### [facility] [address] [address] [address] Sarmad Patino MYCOPHENOLIC ACIDon 04-17-19 Mycophenolic Acid 1.2 ug/mL Normal 1.0-3.5 [facility] Comment on above: Performed By: #### D DAVIDSON, MG, PHOS, CMP, LIPID, URIC #### [facility] [address] [address] [address] Sarmad Patino Mycophenolic Acid Glucuronide 37 ug/mL Normal 15-125 [facility] Comment on above: Result Comment: [facility] 's Reference Range: 35-100 mcg/mL. Performed By: #### D DAVIDSON, MG, PHOS, CMP, LIPID, URIC #### [facility] [address] [place] [address] Dr. Sarmad Patino FK506 (TACROLIMUS) WHOLE BLO ODon 04-10-2022 Tacrolimus (FK506), Blood 4.2 ng/mL Normal 2.0-20.0 [facility] Comment on above: Result Comment: Trou gh (immediately following transplant) 15.0 . Trough (steady state, 2 weeks or more after transplant): 3.0 - 8.0 . Performed by LC-MS/MS technology. Performed By: #### D DAVIDSON, MG, PHOS, CMP, LIPID, URIC #### [facility] [address] [place] [address] Dr. Sarmad Patino BILIRUBIN CONJUGATED (DIRECT )on 04-08-2022 BILI, CONJUGATED 0.1 mg/dL Normal 0.0-0.2 [facility] Comment on above: Performed By: #### U JUVE, LIPID, MG, CMP, DBIL, PHOS #### [facility] [address] [place] [address] Dr. Sarmad Patino CBC AUTO DIFFon 04-08-2022 BASO # 0.0 103/ul Normal 0.0-0.1 [facility] Comment on above: Performed By: #### D DAVIDSON, MG, PHOS, CMP, LIPID, URIC #### [facility] [address] [place] [address] Dr. Sarmad Patino Basophils/100 WBC (Bld) 0.3 % Normal 0.2-2.0 [facility] Comment on above: Performed By: #### D DAVIDSON, MG, PHOS, CMP, LIPID, URIC #### [facility] [address] [place] [address] Dr. Sarmad Patino EO # 0.1 103/ul Normal 0.0-0.7 [facility] Comment on above: Performed By: #### D DAVIDSON, MG, PHOS, CMP, LIPID, URIC #### [facility] [address] [place] [address] Dr. Sarmad Patino Eosinophils/100 WBC (Bld) 1.4 % Normal 0.9-7.0 [facility] Comment on above: Performed By: #### D DAVIDSON, MG, PHOS, CMP, LIPID, URIC #### [facility] [address] [place] [address] Dr. aSrmad Patino Erythrocyte distribution width (RBC) [Ratio] 15.8 % Critically high 11.0-15.0 [facility] Comment on above: Performed By: #### D DAVIDSON, MG, PHOS, CMP, LIPID, URIC #### [facility] [address] [place] [address] Dr. Sarmad Patino Hematocrit (Bld) [Volume fraction] 43.0 % Normal 36.0-48.0 [facility] Comment on above: Performed By: #### D DAVIDSON, MG, PHOS, CMP, LIPID, URIC #### [facility] [address] [place] [address] Dr. Sarmad Patino Hemoglobin (Bld) [Mass/Vol] 15.0 g/dL Normal 12.0-16.0 [facility] Comment on above: Performed By: #### D DAVIDSON, MG, PHOS, CMP, LIPID, URIC #### [facility] [address] [place] [address] Dr. Sarmad Patino IG # 0.01 10e3/ul Normal 0.00-0.03 [facility] Comment on above: Performed By: #### D DAVIDSON, MG, PHOS, CMP, LIPID, URIC #### [facility] [address] [place] [address] Dr. Sarmad Patino IG % 0.1 % Normal 0.0-0.5 [facility] Comment on above: Performed By: #### D DAVIDSON, MG, PHOS, CMP, LIPID, URIC #### [facility] [address] [place] [address] Dr. Sarmad Patino LYMPH # 1.3 103/ul Normal 1.2-3.8 [facility] Comment on above: Performed By: #### D DAVIDSON, MG, PHOS, CMP, LIPID, URIC #### [facility] [address] [place] [address] Dr. Sarmad Patino Lymphocytes/100 WBC (Bld) 18.3 % Critically low 20.5-60.0 [facility] Comment on above: Performed By: #### D DAVIDSON, MG, PHOS, CMP, LIPID, URIC #### [facility] [address] [place] [address] Dr. Sarmad aPtino MANUAL DIFF REQ NO Normal [facility] Comment on above: Performed By: #### D DAVIDSON, MG, PHOS, CMP, LIPID, URIC #### [facility] [address] [place] [address] Dr. Sarmad Patino MCH (RBC) [Entitic mass] 29.7 pg Normal 26.7-34.0 [facility] Comment on above: Performed By: #### D DAVIDSON, MG, PHOS, CMP, LIPID, URIC #### [facility] [address] [place] [address] Dr. Sarmad Patino MCHC (RBC) [Mass/Vol] 34.9 g/dL Normal 29.9-35.2 [facility] Comment on above: Performed By: #### D DAVIDSON, MG, PHOS, CMP, LIPID, URIC #### [facility] [address] [place] [address] Dr. Sarmad Patino MCV (RBC) [Entitic vol] 85.1 fL Normal 81.0-99.0 [facility] Comment on above: Performed By: #### D DAVIDSON, MG, PHOS, CMP, LIPID, URIC #### [facility] [address] [place] [address] Dr. Sarmad Patino MONO # 0.7 103/ul Normal 0.3-0.8 [facility] Comment on above: Performed By: #### D DAVIDSON, MG, PHOS, CMP, LIPID, URIC #### [facility] [address] [place] [address] Dr. Sarmad Patino Monocytes/100 WBC (Bld) 9.8 % Normal 1.7-12.0 [facility] Comment on above: Performed By: #### D DAVIDSON, MG, PHOS, CMP, LIPID, URIC #### [facility] [address] [place] [address] Dr. Sarmad Patino NEUT # 5.1 103/ul Normal 1.4-6.5 [facility] Comment on above: Performed By: #### D DAVIDSON, MG, PHOS, CMP, LIPID, URIC #### [facility] [address] [place] [address] Dr. Sarmad Patino Neutrophils/100 WBC (Bld) 70.1 % Normal 43.0-75.0 [facility] Comment on above: Performed By: #### D DAVIDSON, MG, PHOS, CMP, LIPID, URIC #### [facility] [address] [place] [address] Dr. Sarmad Patino Platelet mean volume (Bld) [Entitic vol] 10.4 fL Normal 9.5-13.5 [facility] Comment on above: Performed By: #### D DAVIDSON, MG, PHOS, CMP, LIPID, URIC #### [facility] [address] [place] [address] Dr. Sarmad Patino PLT 229 103/ul Normal 150-450 [facility] Comment on above: Performed By: #### D DAVIDSON, MG, PHOS, CMP, LIPID, URIC #### [facility] [address] [place] [address] Dr. Sarmad Patino RBC 5.05 106/ul Normal 4.20-5.40 [facility] Comment on above: Performed By: #### D DAVIDSON, MG, PHOS, CMP, LIPID, URIC #### [facility] [address] [place] [address] Dr. Sarmad Patino WBC 7.2 103/ul Normal 4.0-11.0 [facility] Comment on above: Performed By: #### D DAVIDSON, MG, PHOS, CMP, LIPID, URIC #### [facility] [address] [address] [address] Sarmad Patino LIPID PROFILEon 04-08-2022 CHOL-HDL RATIO NORM SEE BELOW Normal [facility] Comment on above: Result Comment: 3.3 - 4.4 LOW RISK 4.4 - 7.1 AVERAGE RISK 7.1 - 11.0 MODERATE RISK >11.0 HIGH RISK Performed By: #### U JUVE, LIPID, MG, CMP, DBIL, PHOS #### [facility] [address] [address] [address] Sarmad Patino Cholesterol [Mass/Vol] 134 mg/dL Normal <=200 [facility] Comment on above: Performed By: #### U JUVE, LIPID, MG, CMP, DBIL, PHOS #### [facility] [address] [address] [address] Sarmad Patino Cholesterol in HDL [Mass/Vol] 55 mg/dL Normal 40-60 [facility] Comment on above: Performed By: #### U JUVE, LIPID, MG, CMP, DBIL, PHOS #### [facility] [address] [address] [address] Sarmad Patino Cholesterol in LDL [Mass/Vol] 56.6 mg/dL Normal [facility] Comment on above: Performed By: #### U JUVE, LIPID, MG, CMP, DBIL, PHOS #### [facility] [address] [address] [address] Sarmad Patino Cholesterol.total/Cho lesterol in HDL [Mass ratio] 2.4 {ratio} Normal [facility] Comment on above: Performed By: #### U JUVE, LIPID, MG, CMP, DBIL, PHOS #### [facility] [address] [place] [address] Dr. Sarmad Patino HDL NORMAL > or = 60 mg/dl - LO W CARDIOVASCULAR RISK <40 mg/dl - HIGH CARDIOVASCULAR RISK Normal [facility] Comment on above: Performed By: #### U JUVE, LIPID, MG, CMP, DBIL, PHOS #### [facility] [address] [address] [address] Sarmad Patino LDL CALC NORMAL SEE BELOW Normal [facility] Comment on above: Result Comment: <100 mg/dl OPTIMAL 100 - 129 mg/dl NEAR OR ABOVE OPTIMAL 130 - 159 mg/dl BORDERLINE HIGH 160 - 189 mg/dl HIGH >190 mg/dl VERY HIGH Performed By: #### U JUVE, LIPID, MG, CMP, DBIL, PHOS #### [facility] [address] [address] [address] Sarmad Patino Triglyceride [Mass/Vol] 112 mg/dL Normal <=150 [facility] Comment on above: Performed By: #### U JUVE, LIPID, MG, CMP, DBIL, PHOS #### [facility] [address] [address] [address] Sarmad Patino VLDL CALC 22.4 mg/dL Normal [facility] Comment on above: Performed By: #### U JUVE, LIPID, MG, CMP, DBIL, PHOS #### [facility] [address] [address] [address] Sarmad Patino MAGNESIUMon 04-08-2022 Magnesium [Mass/Vol] 1.8 mg/dL Normal 1.8-2.4 [facility] Comment on above: Performed By: #### U JUVE, LIPID, MG, CMP, DBIL, PHOS #### [facility] [address] [address] [address] Sarmad Patino PHOSPHORUSon 04-08-2022 Phosphate [Mass/Vol] 3.9 mg/dL Normal 2.6-4.7 [facility] Comment on above: Performed By: #### U JUVE, LIPID, MG, CMP, DBIL, PHOS #### [facility] [address] [place] [address] Dr. Sarmad Patino PROF 14(COMP METB)on 023 Albumin [Mass/Vol] 4.0 g/dL Normal 3.4-5.0 [facility] Comment on above: Performed By: #### U JUVE, LIPID, MG, CMP, DBIL, PHOS #### [facility] [address] [place] [address] Dr. Sarmad Patino Albumin/Globulin [Mass ratio] 1.3 {ratio} Normal [facility] Comment on above: Performed By: #### U JUVE, LIPID, MG, CMP, DBIL, PHOS #### [facility] [address] [place] [address] Dr. Sarmad Patino ALP [Catalytic activity/Vol] 108 U/L Normal 46-116 [facility] Comment on above: Performed By: #### U JUVE, LIPID, MG, CMP, DBIL, PHOS #### [facility] [address] [place] [address] Dr. Sarmad Patino ALT [Catalytic activity/Vol] 15 U/L Normal 14-59 [facility] Comment on above: Performed By: #### U JUVE, LIPID, MG, CMP, DBIL, PHOS #### [facility] [address] [place] [address] Dr. Sarmad Patino Anion gap [Moles/Vol] 14.3 mmol/L Normal [facility] Comment on above: Performed By: #### U JUVE, LIPID, MG, CMP, DBIL, PHOS #### [facility] [address] [place] [address] Dr. Sarmad Patino AST [Catalytic activity/Vol] 15 U/L Normal 15-37 [facility] Comment on above: Performed By: #### U JUVE, LIPID, MG, CMP, DBIL, PHOS #### [facility] [address] [place] [address] Dr. Sarmad Patino Bilirubin [Mass/Vol] 0.5 mg/dL Normal 0.2-1.0 [facility] Comment on above: Performed By: #### U JUVE, LIPID, MG, CMP, DBIL, PHOS #### [facility] [address] [place] [address] Dr. Sarmad Patino Calcium [Mass/Vol] 9.7 mg/dL Normal 8.5-10.1 [facility] Comment on above: Performed By: #### U JUVE, LIPID, MG, CMP, DBIL, PHOS #### [facility] [address] [address] [address] Sarmad Patino Chloride [Moles/Vol] 105 mmol/L Normal 98-107 [facility] Comment on above: Performed By: #### U JUVE, LIPID, MG, CMP, DBIL, PHOS #### [facility] [address] [place] [address] Dr. Sarmad Patino CO2 [Moles/Vol] 26.6 mmol/L Normal 21.0-32.0 [facility] Comment on above: Performed By: #### U JUVE, LIPID, MG, CMP, DBIL, PHOS #### [facility] [address] [place] [address] Dr. Sarmad Patino Creatinine [Mass/Vol] 0.80 mg/dL Normal 0.55-1.02 [facility] Comment on above: Performed By: #### U JUVE, LIPID, MG, CMP, DBIL, PHOS #### [facility] [address] [place] [address] Dr. Sarmad Patino EGFR-AF MALTESE >60 Normal >=60 [facility] Comment on above: Performed By: #### U JUVE, LIPID, MG, CMP, DBIL, PHOS #### [facility] [address] [place] [address] Dr. Sarmad Patino EGFR-NON AF MALTESE >60 Normal >=60 [facility] Comment on above: Performed By: #### U JUVE, LIPID, MG, CMP, DBIL, PHOS #### [facility] [address] [place] [address] Dr. Sarmad Patino Globulin (S) [Mass/Vol] 3.0 g/dL Normal [facility] Comment on above: Performed By: #### U JUVE, LIPID, MG, CMP, DBIL, PHOS #### [facility] [address] [place] [address] Dr. Sarmad Patino Glucose [Mass/Vol] 99 mg/dL Normal 74-106 [facility] Comment on above: Performed By: #### U JUVE, LIPID, MG, CMP, DBIL, PHOS #### [facility] [address] [address] [address] Sarmad Patino Potassium [Moles/Vol] 3.9 mmol/L Normal 3.5-5.1 [facility] Comment on above: Performed By: #### U JUVE, LIPID, MG, CMP, DBIL, PHOS #### [facility] [address] [place] [address] Dr. Sarmad Patino Protein [Mass/Vol] 7.0 g/dL Normal 6.4-8.2 [facility] Comment on above: Performed By: #### U JUVE, LIPID, MG, CMP, DBIL, PHOS #### [facility] [address] [place] [address] Dr. Sarmad Patino Sodium [Moles/Vol] 142 mmol/L Normal 136-145 [facility] Comment on above: Performed By: #### U JUVE, LIPID, MG, CMP, DBIL, PHOS #### [facility] [address] [place] [address] Dr. Sarmad Patino Urea nitrogen [Mass/Vol] 14.0 mg/dL Normal 7.0-18.0 [facility] Comment on above: Performed By: #### U JUVE, LIPID, MG, CMP, DBIL, PHOS #### [facility] [address] [place] [address] Dr. Sarmad Patino Urea nitrogen/Creatinine [Mass ratio] 17.5 mg/mg Normal [facility] Comment on above: Performed By: #### U JUVE, LIPID, MG, CMP, DBIL, PHOS #### [facility] [address] [place] [address] Dr. Sarmad Patino URIC ACID SERUMon 04-08-2022 Urate [Mass/Vol] 5.2 mg/dL Normal 2.6-6.0 [facility] Comment on above: Performed By: #### U UJVE, LIPID, MG, CMP, DBIL, PHOS #### [facility] [address] [place] [address] Dr. Sarmad Patino BK VIRUS PCR QUANTon 022 BKV DNA QUANT PCR PLASMA Negative Normal Negative [facility] Comment on above: Result Comment: No B K DNA detected. . The linear range of the assay is 22 - 100,000,000 IU/mL. Performed By: #### D DAVIDSON, MG, PHOS, CMP, LIPID, URIC #### [facility] [address] [address] [address] Sarmad Patino Log10 BKV DNA Plasma Normal [facility] Comment on above: Performed By: #### D DAVIDSON, MG, PHOS, CMP, LIPID, URIC #### [facility] [address] [address] [address] Sarmad Patino FK506 (TACROLIMUS) WHOLE BLO ODon 03-13-2022 Tacrolimus (FK506), Blood 5.0 ng/mL Normal 2.0-20.0 [facility] Comment on above: Result Comment: Trou gh (immediately following transplant) 15.0 . Trough (steady state, 2 weeks or more after transplant): 3.0 - 8.0 . Performed by LC-MS/MS technology. Performed By: #### D DAVIDSON, MG, PHOS, CMP, LIPID, URIC #### [facility] [address] [place] [address] Dr. Sarmad Patino GLYCOHEMOGLOBIN A1Con 2021 ADA RECOMMENDATION SEE BELOW Normal [facility] Comment on above: Result Comment: ADA RECOMMENDED LIMIT 4.0 - 6.0 ADA THERAPEUTIC TARGET < 7.0 ACTION SUGGESTED > 7.0 Performed By: #### D DAVIDSON, MG, PHOS, CMP, LIPID, URIC #### [facility] [address] [address] [address] Sarmad Patino Glucose [Mass/Vol] 111 mg/dL Normal [facility] Comment on above: Performed By: #### D DAVIDSON, MG, PHOS, CMP, LIPID, URIC #### [facility] [address] [place] [address] Dr. Sarmad Patino HbA1c (Bld) [Mass fraction] 5.5 % Normal 4.5-6.2 [facility] Comment on above: Performed By: #### D DAVIDSON, MG, PHOS, CMP, LIPID, URIC #### [facility] [address] [place] [address] Dr. Sarmad Patino LIVER PROFILEon 03-11-2022 Albumin [Mass/Vol] 3.7 g/dL Normal 3.4-5.0 [facility] Comment on above: Performed By: #### D DAVIDSON, MG, PHOS, CMP, LIPID, URIC #### [facility] [address] [place] [address] Dr. Sarmad Patino Albumin/Globulin [Mass ratio] 1.1 {ratio} Normal [facility] Comment on above: Performed By: #### D DAVIDSON, MG, PHOS, CMP, LIPID, URIC #### [facility] [address] [place] [address] Dr. Sarmad Patino ALP [Catalytic activity/Vol] 124 U/L Critically high 46-116 [facility] Comment on above: Performed By: #### D DAVIDSON, MG, PHOS, CMP, LIPID, URIC #### [facility] [address] [place] [address] Dr. Sarmad Patino ALT [Catalytic activity/Vol] 17 U/L Normal 14-59 [facility] Comment on above: Performed By: #### D DAVIDSON, MG, PHOS, CMP, LIPID, URIC #### [facility] [address] [place] [address] Dr. Sarmad Patino AST [Catalytic activity/Vol] 16 U/L Normal 15-37 [facility] Comment on above: Performed By: #### D DAVIDSON, MG, PHOS, CMP, LIPID, URIC #### [facility] [address] [place] [address] Dr. Sarmad Patino BILI, CONJUGATED 0.2 mg/dL Normal 0.0-0.2 [facility] Comment on above: Performed By: #### D DAVIDSON, MG, PHOS, CMP, LIPID, URIC #### [facility] [address] [place] [address] Dr. Sarmad Patino Bilirubin [Mass/Vol] 0.6 mg/dL Normal 0.2-1.0 [facility] Comment on above: Performed By: #### D DAVIDSON, MG, PHOS, CMP, LIPID, URIC #### [facility] [address] [address] [address] Sarmad Patino Globulin (S) [Mass/Vol] 3.4 g/dL Normal [facility] Comment on above: Performed By: #### D DAVIDSON, MG, PHOS, CMP, LIPID, URIC #### [facility] [address] [address] [address] Sarmad Patino Protein [Mass/Vol] 7.1 g/dL Normal 6.4-8.2 [facility] Comment on above: Performed By: #### D DAVIDSON, MG, PHOS, CMP, LIPID, URIC #### [facility] [address] [place] [address] Dr. Sarmad Patino MAGNESIUMon 03-11-2022 Magnesium [Mass/Vol] 1.6 mg/dL Critically low 1.8-2.4 [facility] Comment on above: Performed By: #### D DAVIDSON, MG, PHOS, CMP, LIPID, URIC #### [facility] [address] [place] [address] Dr. Sarmad Patino PHOSPHORUSon 03-11-2022 Phosphate [Mass/Vol] 3.5 mg/dL Normal 2.6-4.7 [facility] Comment on above: Performed By: #### D DAVIDSON, MG, PHOS, CMP, LIPID, URIC #### [facility] [address] [place] [address] Dr. Sarmad Patino URIC ACID SERUMon 03-11-2022 Urate [Mass/Vol] 5.3 mg/dL Normal 2.6-6.0 [facility] Comment on above: Performed By: #### D DAVIDSON, MG, PHOS, CMP, LIPID, URIC #### [facility] [address] [place] [address] Dr. Sarmad Patino MYCOPHENOLIC ACIDon 02-19-20 22 Mycophenolic Acid 1.5 ug/mL Normal 1.0-3.5 The [facility] Comment on above: Performed By: #### D DAVIDSON, MG, PHOS, CMP, LIPID, URIC #### [facility] [address] [place] [address] Dr. Sarmad Patino Mycophenolic Acid Glucuronide 32 ug/mL Normal 15-125 [facility] Comment on above: Result Comment: [facility] 's Reference Range: 35-100 mcg/mL. Performed By: #### D DAVIDSON, MG, PHOS, CMP, LIPID, URIC #### [facility] [address] [address] [address] Sarmad Patino BK VIRUS PCR QUANTon 022 BKV DNA QUANT PCR PLASMA Negative Normal Negative [facility] Comment on above: Result Comment: No B K DNA detected. . The linear range of the assay is 22 - 100,000,000 IU/mL. Performed By: #### D DAVIDSON, MG, PHOS, CMP, LIPID, URIC #### [facility] [address] [address] [address] Sarmad Patino Log10 BKV DNA Plasma Normal [facility] Comment on above: Performed By: #### D DAVIDSON, MG, PHOS, CMP, LIPID, URIC #### [facility] [address] [address] [address] Sarmad Patino FK506 (TACROLIMUS) WHOLE BLO ODon 02-11-2022 Tacrolimus (FK506), Blood 4.4 ng/mL Normal 2.0-20.0 [facility] Comment on above: Result Comment: Trou gh (immediately following transplant) 15.0 . Trough (steady state, 2 weeks or more after transplant): 3.0 - 8.0 . Performed by LC-MS/MS technology. Performed By: #### U JUVE, LIPID, MG, CMP, DBIL, PHOS #### [facility] [address] [address] [address] Sarmad Patino BILIRUBIN CONJUGATED (DIRECT )on 02-08-2022 BILI, CONJUGATED 0.1 mg/dL Normal 0.0-0.2 [facility] Comment on above: Performed By: #### D DAVIDSON, MG, PHOS, CMP, LIPID, URIC #### [facility] [address] [place] [address] Dr. Sarmad Patino CBC AUTO DIFFon 02-08-2022 BASO # 0.0 103/ul Normal 0.0-0.1 [facility] Comment on above: Performed By: #### D DAVIDSON, MG, PHOS, CMP, LIPID, URIC #### [facility] [address] [place] [address] Dr. Sarmad Patino Basophils/100 WBC (Bld) 0.3 % Normal 0.2-2.0 [facility] Comment on above: Performed By: #### D DAVIDSON, MG, PHOS, CMP, LIPID, URIC #### [facility] [address] [place] [address] Dr. Sarmad Patino EO # 0.1 103/ul Normal 0.0-0.7 [facility] Comment on above: Performed By: #### D DAVIDSON, MG, PHOS, CMP, LIPID, URIC #### [facility] [address] [place] [address] Dr. Sarmad Patino Eosinophils/100 WBC (Bld) 1.0 % Normal 0.9-7.0 [facility] Comment on above: Performed By: #### D DAVIDSON, MG, PHOS, CMP, LIPID, URIC #### [facility] [address] [place] [address] Dr. Sarmad Patino Erythrocyte distribution width (RBC) [Ratio] 15.9 % Critically high 11.0-15.0 [facility] Comment on above: Performed By: #### D DAVIDSON, MG, PHOS, CMP, LIPID, URIC #### [facility] [address] [place] [address] Dr. Sarmad Patino Hematocrit (Bld) [Volume fraction] 42.2 % Normal 36.0-48.0 [facility] Comment on above: Performed By: #### D DAVIDSON, MG, PHOS, CMP, LIPID, URIC #### [facility] [address] [place] [address] Dr. Sarmad Patino Hemoglobin (Bld) [Mass/Vol] 13.8 g/dL Normal 12.0-16.0 [facility] Comment on above: Performed By: #### D DAVIDSON, MG, PHOS, CMP, LIPID, URIC #### [facility] [address] [place] [address] Dr. Sarmad Patino IG # 0.10 10e3/ul Critically high 0.00-0.03 [facility] Comment on above: Performed By: #### D DAVIDSON, MG, PHOS, CMP, LIPID, URIC #### [facility] [address] [place] [address] Dr. Sarmad Patino IG % 1.1 % Critically high 0.0-0.5 [facility] Comment on above: Performed By: #### D DAVIDSON, MG, PHOS, CMP, LIPID, URIC #### [facility] [address] [address] [address] Sarmad Patino LYMPH # 1.2 103/ul Normal 1.2-3.8 [facility] Comment on above: Performed By: #### D DAVIDSON, MG, PHOS, CMP, LIPID, URIC #### [facility] [address] [place] [address] Dr. Sarmad Patino Lymphocytes/100 WBC (Bld) 12.6 % Critically low 20.5-60.0 [facility] Comment on above: Performed By: #### D DAVIDSON, MG, PHOS, CMP, LIPID, URIC #### [facility] [address] [place] [address] Dr. Sarmad Patino MANUAL DIFF REQ NO Normal [facility] Comment on above: Performed By: #### D DAVIDSON, MG, PHOS, CMP, LIPID, URIC #### [facility] [address] [place] [address] Dr. Sarmad Patino MCH (RBC) [Entitic mass] 28.3 pg Normal 26.7-34.0 [facility] Comment on above: Performed By: #### D DAVIDSON, MG, PHOS, CMP, LIPID, URIC #### [facility] [address] [place] [address] Dr. Sarmad Patino MCHC (RBC) [Mass/Vol] 32.7 g/dL Normal 29.9-35.2 [facility] Comment on above: Performed By: #### D DAVIDSON, MG, PHOS, CMP, LIPID, URIC #### [facility] [address] [place] [address] Dr. Sarmad Patino MCV (RBC) [Entitic vol] 86.7 fL Normal 81.0-99.0 [facility] Comment on above: Performed By: #### D DAVIDSON, MG, PHOS, CMP, LIPID, URIC #### [facility] [address] [place] [address] Dr. Sarmad Patino MONO # 1.0 103/ul Critically high 0.3-0.8 [facility] Comment on above: Performed By: #### D DAVIDSON, MG, PHOS, CMP, LIPID, URIC #### [facility] [address] [place] [address] Dr. Sarmad Patino Monocytes/100 WBC (Bld) 10.7 % Normal 1.7-12.0 [facility] Comment on above: Performed By: #### D DAVIDSON, MG, PHOS, CMP, LIPID, URIC #### [facility] [address] [place] [address] Dr. Sarmad Patino NEUT # 6.9 103/ul Critically high 1.4-6.5 [facility] Comment on above: Performed By: #### D DAVIDSON, MG, PHOS, CMP, LIPID, URIC #### [facility] [address] [place] [address] Dr. Sarmad Patino Neutrophils/100 WBC (Bld) 74.3 % Normal 43.0-75.0 [facility] Comment on above: Performed By: #### D DAVIDSON, MG, PHOS, CMP, LIPID, URIC #### [facility] [address] [place] [address] Dr. Sarmad Patino Platelet mean volume (Bld) [Entitic vol] 11.1 fL Normal 9.5-13.5 [facility] Comment on above: Performed By: #### D DAVIDSON, MG, PHOS, CMP, LIPID, URIC #### [facility] [address] [place] [address] Dr. Sarmad Patino PLT 307 103/ul Normal 150-450 [facility] Comment on above: Performed By: #### D DAVIDSON, MG, PHOS, CMP, LIPID, URIC #### [facility] [address] [place] [address] Dr. Sarmad Patino RBC 4.87 106/ul Normal 4.20-5.40 [facility] Comment on above: Performed By: #### D DAVIDSON, MG, PHOS, CMP, LIPID, URIC #### [facility] [address] [address] [address] Sarmad Patino WBC 9.3 103/ul Normal 4.0-11.0 [facility] Comment on above: Performed By: #### D DAVIDSON, MG, PHOS, CMP, LIPID, URIC #### [facility] [address] [address] [address] Sarmad Patino GLYCOHEMOGLOBIN A1Con 2021 ADA RECOMMENDATION SEE BELOW Normal [facility] Comment on above: Result Comment: ADA RECOMMENDED LIMIT 4.0 - 6.0 ADA THERAPEUTIC TARGET < 7.0 ACTION SUGGESTED > 7.0 Performed By: #### D DAVIDSON, MG, PHOS, CMP, LIPID, URIC #### [facility] [address] [address] [address] Sarmad Patino Glucose [Mass/Vol] 134 mg/dL Normal [facility] Comment on above: Performed By: #### D DAVIDSON, MG, PHOS, CMP, LIPID, URIC #### [facility] [address] [address] [address] Sarmad Patino HbA1c (Bld) [Mass fraction] 6.3 % Critically high 4.5-6.2 [facility] Comment on above: Performed By: #### D DAVIDSON, MG, PHOS, CMP, LIPID, URIC #### [facility] [address] [address] [address] Sarmad Patino LIPID PROFILEon 02-08-2022 CHOL-HDL RATIO NORM SEE BELOW Normal [facility] Comment on above: Result Comment: 3.3 - 4.4 LOW RISK 4.4 - 7.1 AVERAGE RISK 7.1 - 11.0 MODERATE RISK >11.0 HIGH RISK Performed By: #### D DAVIDSON, MG, PHOS, CMP, LIPID, URIC #### [facility] [address] [address] [address] Sarmad Patino Cholesterol [Mass/Vol] 180 mg/dL Normal <=200 [facility] Comment on above: Performed By: #### D DAVIDSON, MG, PHOS, CMP, LIPID, URIC #### [facility] [address] [address] [address] Sarmad Patino Cholesterol in HDL [Mass/Vol] 58 mg/dL Normal 40-60 [facility] Comment on above: Performed By: #### D DAVIDSON, MG, PHOS, CMP, LIPID, URIC #### [facility] [address] [address] [address] Sarmad Patino Cholesterol in LDL [Mass/Vol] 86.6 mg/dL Normal [facility] Comment on above: Performed By: #### D DAVIDSON, MG, PHOS, CMP, LIPID, URIC #### [facility] [address] [address] [address] Sarmad Patino Cholesterol.total/Cho lesterol in HDL [Mass ratio] 3.1 {ratio} Normal [facility] Comment on above: Performed By: #### D DAVIDSON, MG, PHOS, CMP, LIPID, URIC #### [facility] [address] [place] [address] Dr. Sarmad Patino HDL NORMAL > or = 60 mg/dl - LO W CARDIOVASCULAR RISK <40 mg/dl - HIGH CARDIOVASCULAR RISK Normal [facility] Comment on above: Performed By: #### D DAVIDSON, MG, PHOS, CMP, LIPID, URIC #### [facility] [address] [place] [address] Dr. Sarmad Patino LDL CALC NORMAL SEE BELOW Normal [facility] Comment on above: Result Comment: <100 mg/dl OPTIMAL 100 - 129 mg/dl NEAR OR ABOVE OPTIMAL 130 - 159 mg/dl BORDERLINE HIGH 160 - 189 mg/dl HIGH >190 mg/dl VERY HIGH Performed By: #### D DAVIDSON, MG, PHOS, CMP, LIPID, URIC #### [facility] [address] [address] [address] Sarmad Patino Triglyceride [Mass/Vol] 177 mg/dL Critically high <=150 [facility] Comment on above: Performed By: #### D DAVIDSON, MG, PHOS, CMP, LIPID, URIC #### [facility] [address] [place] [address] Dr. Sarmad Patino VLDL CALC 35.4 mg/dL Normal [facility] Comment on above: Performed By: #### D DAVIDSON, MG, PHOS, CMP, LIPID, URIC #### [facility] [address] [place] [address] Dr. Sarmad Patino MAGNESIUMon 02-08-2022 Magnesium [Mass/Vol] 1.8 mg/dL Normal 1.8-2.4 [facility] Comment on above: Performed By: #### D DAVIDSON, MG, PHOS, CMP, LIPID, URIC #### [facility] [address] [place] [address] Dr. Sarmad Patino PHOSPHORUSon 02-08-2022 Phosphate [Mass/Vol] 3.3 mg/dL Normal 2.6-4.7 [facility] Comment on above: Performed By: #### D DAVIDSON, MG, PHOS, CMP, LIPID, URIC #### [facility] [address] [place] [address] Dr. Sarmad Patino PROF 14(COMP METB)on 022 Albumin [Mass/Vol] 3.8 g/dL Normal 3.4-5.0 [facility] Comment on above: Performed By: #### D DAVIDSON, MG, PHOS, CMP, LIPID, URIC #### [facility] [address] [place] [address] Dr. Sarmad Patino Albumin/Globulin [Mass ratio] 1.3 {ratio} Normal [facility] Comment on above: Performed By: #### D DAVIDSON, MG, PHOS, CMP, LIPID, URIC #### [facility] [address] [place] [address] Dr. Sarmad Patino ALP [Catalytic activity/Vol] 144 U/L Critically high 46-116 [facility] Comment on above: Performed By: #### D DAVIDSON, MG, PHOS, CMP, LIPID, URIC #### [facility] [address] [place] [address] Dr. Sarmad Patino ALT [Catalytic activity/Vol] 24 U/L Normal 14-59 [facility] Comment on above: Performed By: #### D DAVIDSON, MG, PHOS, CMP, LIPID, URIC #### [facility] [address] [address] [address] Sarmad Patino Anion gap [Moles/Vol] 13.7 mmol/L Normal Th e [facility] Comment on above: Performed By: #### D DAVIDSON, MG, PHOS, CMP, LIPID, URIC #### [facility] [address] [address] [address] Sarmad Patino AST [Catalytic activity/Vol] 19 U/L Normal 15-37 [facility] Comment on above: Performed By: #### D DAVIDSON, MG, PHOS, CMP, LIPID, URIC #### [facility] [address] [address] [address] Sarmad Patino Bilirubin [Mass/Vol] 0.5 mg/dL Normal 0.2-1.0 [facility] Comment on above: Performed By: #### D DAVIDSON, MG, PHOS, CMP, LIPID, URIC #### [facility] [address] [place] [address] Dr. Sarmad Patino Calcium [Mass/Vol] 9.6 mg/dL Normal 8.5-10.1 [facility] Comment on above: Performed By: #### D DAVIDSON, MG, PHOS, CMP, LIPID, URIC #### [facility] [address] [place] [address] Dr. Sarmad Patino Chloride [Moles/Vol] 103 mmol/L Normal 98-107 [facility] Comment on above: Performed By: #### D DAVIDSON, MG, PHOS, CMP, LIPID, URIC #### [facility] [address] [place] [address] Dr. Sarmad Patino CO2 [Moles/Vol] 26.6 mmol/L Normal 21.0-32.0 [facility] Comment on above: Performed By: #### D DAVIDSON, MG, PHOS, CMP, LIPID, URIC #### [facility] [address] [place] [address] Dr. Sarmad Patino Creatinine [Mass/Vol] 0.75 mg/dL Normal 0.55-1.02 [facility] Comment on above: Performed By: #### D DAVIDSON, MG, PHOS, CMP, LIPID, URIC #### [facility] [address] [address] [address] Sarmad Patino EGFR-AF MALTESE >60 Normal >=60 [facility] Comment on above: Performed By: #### D DAVIDSON, MG, PHOS, CMP, LIPID, URIC #### [facility] [address] [address] [address] Sarmad Patino EGFR-NON AF MALTESE >60 Normal >=60 [facility] Comment on above: Performed By: #### D DAVIDSON, MG, PHOS, CMP, LIPID, URIC #### [facility] [address] [address] [address] Sarmad Patino Globulin (S) [Mass/Vol] 3.0 g/dL Normal [facility] Comment on above: Performed By: #### D DAVIDSON, MG, PHOS, CMP, LIPID, URIC #### [facility] [address] [address] [address] Sarmad Patino Glucose [Mass/Vol] 99 mg/dL Normal 74-106 [facility] Comment on above: Performed By: #### D DAVIDSON, MG, PHOS, CMP, LIPID, URIC #### [facility] [address] [address] [address] Sarmad Patino Potassium [Moles/Vol] 4.3 mmol/L Normal 3.5-5.1 [facility] Comment on above: Performed By: #### D DAVIDSON, MG, PHOS, CMP, LIPID, URIC #### [facility] [address] [address] [address] Sarmad Patino Protein [Mass/Vol] 6.8 g/dL Normal 6.4-8.2 [facility] Comment on above: Performed By: #### D DAVIDSON, MG, PHOS, CMP, LIPID, URIC #### [facility] [address] [place] [address] Dr. Sarmad Patino Sodium [Moles/Vol] 139 mmol/L Normal 136-145 [facility] Comment on above: Performed By: #### D DAVIDSON, MG, PHOS, CMP, LIPID, URIC #### [facility] [address] [address] [address] Sarmad Patino Urea nitrogen [Mass/Vol] 16.0 mg/dL Normal 7.0-18.0 [facility] Comment on above: Performed By: #### D DAVIDSON, MG, PHOS, CMP, LIPID, URIC #### [facility] [address] [address] [address] Sarmad Patino Urea nitrogen/Creatinine [Mass ratio] 21.3 mg/mg Normal [facility] Comment on above: Performed By: #### D DAVIDSON, MG, PHOS, CMP, LIPID, URIC #### [facility] [address] [place] [address] Dr. Sarmad Patino URIC ACID SERUMon 02-08-2022 Urate [Mass/Vol] 5.4 mg/dL Normal 2.6-6.0 [facility] Comment on above: Performed By: #### D DAVIDSON, MG, PHOS, CMP, LIPID, URIC #### [facility] [address] [place] [address] Dr. Sarmad Patino BK VIRUS PCR QUANTon 022 BKV DNA QUANT PCR PLASMA 27 IU/mL Normal Negative [facility] Comment on above: Result Comment: The linear range of the assay is 22 - 100,000,000 IU/mL. Performed By: #### D DAVIDSON, MG, PHOS, CMP, LIPID, URIC #### [facility] [address] [place] [address] Dr. Sarmad Patino Log10 BKV DNA Plasma 1.431 log10 IU/mL Normal [facility] Comment on above: Performed By: #### D DAVIDSON, MG, PHOS, CMP, LIPID, URIC #### [facility] [address] [place] [address] Dr. Sarmad Patino FK506 (TACROLIMUS) WHOLE BLO ODon 01-30-2022 Tacrolimus (FK506), Blood 6.5 ng/mL Normal 2.0-20.0 [facility] Comment on above: Result Comment: Trou gh (immediately following transplant) 15.0 . Trough (steady state, 2 weeks or more after transplant): 3.0 - 8.0 . Performed by LC-MS/MS technology. Performed By: #### D DAVIDSON, MG, PHOS, CMP, LIPID, URIC #### [facility] [address] [place] [address] Dr. Sarmad Patino RAPAMUNE(SIROLIMUS)on 2021 Rapamune(Sirolimus), whole blood 9.9 ng/mL Normal 3.0-20.0 [facility] Comment on above: Result Comment: Perf ormed by LC/MS-MS technology . This test was developed and its performance characteristics determined by [employer]. It has not been cleared or approved by the Food and Drug Administration. Performed By: #### D DAVIDSON, MG, PHOS, CMP, LIPID, URIC #### [facility] [address] [place] [address] Dr. Sarmad Patino BILIRUBIN CONJUGATED (DIRECT )on 01-28-2022 BILI, CONJUGATED 0.1 mg/dL Normal 0.0-0.2 [facility] Comment on above: Performed By: #### D DAVIDSON, MG, PHOS, CMP, LIPID, URIC #### [facility] [address] [place] [address] Dr. Sarmad Patino CBC AUTO DIFFon 01-28-2022 BASO # 0.0 103/ul Normal 0.0-0.1 [facility] Comment on above: Performed By: #### D DAVIDSON, MG, PHOS, CMP, LIPID, URIC #### [facility] [address] [place] [address] Dr. Sarmad Patino Basophils/100 WBC (Bld) 0.3 % Normal 0.2-2.0 [facility] Comment on above: Performed By: #### D DAVIDSON, MG, PHOS, CMP, LIPID, URIC #### [facility] [address] [place] [address] Dr. Sarmad Patino EO # 0.2 103/ul Normal 0.0-0.7 [facility] Comment on above: Performed By: #### D DAVIDSON, MG, PHOS, CMP, LIPID, URIC #### [facility] [address] [place] [address] Dr. Sarmad Patino Eosinophils/100 WBC (Bld) 3.1 % Normal 0.9-7.0 [facility] Comment on above: Performed By: #### D DAVIDSON, MG, PHOS, CMP, LIPID, URIC #### [facility] [address] [place] [address] Dr. Sarmad Patino Erythrocyte distribution width (RBC) [Ratio] 15.4 % Critically high 11.0-15.0 [facility] Comment on above: Performed By: #### D DAVIDSON, MG, PHOS, CMP, LIPID, URIC #### [facility] [address] [place] [address] Dr. Sarmad Patino Hematocrit (Bld) [Volume fraction] 42.6 % Normal 36.0-48.0 [facility] Comment on above: Performed By: #### D DAVIDSON, MG, PHOS, CMP, LIPID, URIC #### [facility] [address] [place] [address] Dr. Sarmad Patino Hemoglobin (Bld) [Mass/Vol] 14.0 g/dL Normal 12.0-16.0 [facility] Comment on above: Performed By: #### D DAVIDSON, MG, PHOS, CMP, LIPID, URIC #### [facility] [address] [place] [address] Dr. Sarmad Patino IG # 0.05 10e3/ul Critically high 0.00-0.03 [facility] Comment on above: Performed By: #### D DAVIDSON, MG, PHOS, CMP, LIPID, URIC #### [facility] [address] [place] [address] Dr. Sarmad Patino IG % 0.7 % Critically high 0.0-0.5 [facility] Comment on above: Performed By: #### D DAVIDSON, MG, PHOS, CMP, LIPID, URIC #### [facility] [address] [place] [address] Dr. Sarmad Patino LYMPH # 1.1 103/ul Critically low 1.2-3.8 [facility] Comment on above: Performed By: #### D DAVIDSON, MG, PHOS, CMP, LIPID, URIC #### [facility] [address] [address] [address] Sarmad Patino Lymphocytes/100 WBC (Bld) 15.8 % Critically low 20.5-60.0 [facility] Comment on above: Performed By: #### D DAVIDSON, MG, PHOS, CMP, LIPID, URIC #### [facility] [address] [address] [address] Sarmad Patino MANUAL DIFF REQ NO Normal [facility] Comment on above: Performed By: #### D DAVIDSON, MG, PHOS, CMP, LIPID, URIC #### [facility] [address] [place] [address] Dr. Sarmad Patino MCH (RBC) [Entitic mass] 28.3 pg Normal 26.7-34.0 [facility] Comment on above: Performed By: #### D DAVIDSON, MG, PHOS, CMP, LIPID, URIC #### [facility] [address] [place] [address] Dr. Sarmad Patino MCHC (RBC) [Mass/Vol] 32.9 g/dL Normal 29.9-35.2 [facility] Comment on above: Performed By: #### D DAVIDSON, MG, PHOS, CMP, LIPID, URIC #### [facility] [address] [place] [address] Dr. Sarmad Patino MCV (RBC) [Entitic vol] 86.2 fL Normal 81.0-99.0 [facility] Comment on above: Performed By: #### D DAVIDSON, MG, PHOS, CMP, LIPID, URIC #### [facility] [address] [place] [address] Dr. Sarmad Patino MONO # 0.8 103/ul Normal 0.3-0.8 [facility] Comment on above: Performed By: #### D DAVIDSON, MG, PHOS, CMP, LIPID, URIC #### [facility] [address] [place] [address] Dr. Sarmad Patino Monocytes/100 WBC (Bld) 11.0 % Normal 1.7-12.0 [facility] Comment on above: Performed By: #### D DAVIDSON, MG, PHOS, CMP, LIPID, URIC #### [facility] [address] [address] [address] Sarmad Patino NEUT # 4.8 103/ul Normal 1.4-6.5 [facility] Comment on above: Performed By: #### D DAVIDSON, MG, PHOS, CMP, LIPID, URIC #### [facility] [address] [address] [address] Sarmad Patino Neutrophils/100 WBC (Bld) 69.1 % Normal 43.0-75.0 [facility] Comment on above: Performed By: #### D DAVIDSON, MG, PHOS, CMP, LIPID, URIC #### [facility] [address] [address] [address] Sarmad Patino Platelet mean volume (Bld) [Entitic vol] 10.8 fL Normal 9.5-13.5 [facility] Comment on above: Performed By: #### D DAVIDSON, MG, PHOS, CMP, LIPID, URIC #### [facility] [address] [address] [address] Sarmad Patino PLT 208 103/ul Normal 150-450 [facility] Comment on above: Performed By: #### D DAVIDSON, MG, PHOS, CMP, LIPID, URIC #### [facility] [address] [address] [address] Sarmad Patino RBC 4.94 106/ul Normal 4.20-5.40 [facility] Comment on above: Performed By: #### D DAVIDSON, MG, PHOS, CMP, LIPID, URIC #### [facility] [address] [address] [address] Sarmad Patino WBC 7.0 103/ul Normal 4.0-11.0 [facility] Comment on above: Performed By: #### D DAVIDSON, MG, PHOS, CMP, LIPID, URIC #### [facility] [address] [place] [address] Dr. Sarmad Patino GLYCOHEMOGLOBIN A1Con 2021 ADA RECOMMENDATION SEE BELOW Normal [facility] Comment on above: Result Comment: ADA RECOMMENDED LIMIT 4.0 - 6.0 ADA THERAPEUTIC TARGET < 7.0 ACTION SUGGESTED > 7.0 Performed By: #### D DAVIDSON, MG, PHOS, CMP, LIPID, URIC #### [facility] [address] [address] [address] Sarmad Patino Glucose [Mass/Vol] 137 mg/dL Normal [facility] Comment on above: Performed By: #### D DAVIDSON, MG, PHOS, CMP, LIPID, URIC #### [facility] [address] [address] [address] Sarmad Patino HbA1c (Bld) [Mass fraction] 6.4 % Critically high 4.5-6.2 [facility] Comment on above: Performed By: #### D DAVIDSON, MG, PHOS, CMP, LIPID, URIC #### [facility] [address] [address] [address] Sarmad Patino LIPID PROFILEon 01-28-2022 CHOL-HDL RATIO NORM SEE BELOW Normal [facility] Comment on above: Result Comment: 3.3 - 4.4 LOW RISK 4.4 - 7.1 AVERAGE RISK 7.1 - 11.0 MODERATE RISK >11.0 HIGH RISK Performed By: #### D DAVIDSON, MG, PHOS, CMP, LIPID, URIC #### [facility] [address] [address] [address] Sarmad Patino Cholesterol [Mass/Vol] 209 mg/dL Critically high <=200 [facility] Comment on above: Performed By: #### D DAVIDSON, MG, PHOS, CMP, LIPID, URIC #### [facility] [address] [address] [address] Sarmad Patino Cholesterol in HDL [Mass/Vol] 59 mg/dL Normal 40-60 [facility] Comment on above: Performed By: #### D DAVIDSON, MG, PHOS, CMP, LIPID, URIC #### [facility] [address] [address] [address] Sarmad Patino Cholesterol in LDL [Mass/Vol] 100.4 mg/dL Normal [facility] Comment on above: Performed By: #### D DAVIDSON, MG, PHOS, CMP, LIPID, URIC #### [facility] [address] [address] [address] Sarmad Patino Cholesterol.total/Cho lesterol in HDL [Mass ratio] 3.5 {ratio} Normal [facility] Comment on above: Performed By: #### D DAVIDSON, MG, PHOS, CMP, LIPID, URIC #### [facility] [address] [address] [address] Sarmad Patino HDL NORMAL > or = 60 mg/dl - LO W CARDIOVASCULAR RISK <40 mg/dl - HIGH CARDIOVASCULAR RISK Normal [facility] Comment on above: Performed By: #### D DAVIDSON, MG, PHOS, CMP, LIPID, URIC #### [facility] [address] [address] [address] Sarmad Patino LDL CALC NORMAL SEE BELOW Normal [facility] Comment on above: Result Comment: <100 mg/dl OPTIMAL 100 - 129 mg/dl NEAR OR ABOVE OPTIMAL 130 - 159 mg/dl BORDERLINE HIGH 160 - 189 mg/dl HIGH >190 mg/dl VERY HIGH Performed By: #### D DAVIDSON, MG, PHOS, CMP, LIPID, URIC #### [facility] [address] [address] [address] Sarmad Patino Triglyceride [Mass/Vol] 248 mg/dL Critically high <=150 [facility] Comment on above: Performed By: #### D DAVIDSON, MG, PHOS, CMP, LIPID, URIC #### [facility] [address] [address] [address] Sarmad Patino VLDL CALC 49.6 mg/dL Normal [facility] Comment on above: Performed By: #### D DAVIDSON, MG, PHOS, CMP, LIPID, URIC #### [facility] [address] [address] [address] Sarmad Patino MAGNESIUMon 01-28-2022 Magnesium [Mass/Vol] 1.6 mg/dL Critically low 1.8-2.4 [facility] Comment on above: Performed By: #### D DAVIDSON, MG, PHOS, CMP, LIPID, URIC #### [facility] [address] [address] [address] Sarmad Patino PHOSPHORUSon 01-28-2022 Phosphate [Mass/Vol] 2.7 mg/dL Normal 2.6-4.7 [facility] Comment on above: Performed By: #### D DAVIDSON, MG, PHOS, CMP, LIPID, URIC #### [facility] [address] [address] [address] Sarmad Patino PROF 14(COMP METB)on 022 Albumin [Mass/Vol] 3.3 g/dL Critically low 3.4-5.0 [facility] Comment on above: Performed By: #### D DAVIDSON, MG, PHOS, CMP, LIPID, URIC #### [facility] [address] [place] [address] Dr. Sarmad Patino Albumin/Globulin [Mass ratio] 0.9 {ratio} Normal [facility] Comment on above: Performed By: #### D DAVIDSON, MG, PHOS, CMP, LIPID, URIC #### [facility] [address] [place] [address] Dr. Sarmad Patino ALP [Catalytic activity/Vol] 124 U/L Critically high 46-116 [facility] Comment on above: Performed By: #### D DAVIDSON, MG, PHOS, CMP, LIPID, URIC #### [facility] [address] [place] [address] Dr. Sarmad Patino ALT [Catalytic activity/Vol] 28 U/L Normal 14-59 [facility] Comment on above: Performed By: #### D DAVIDSON, MG, PHOS, CMP, LIPID, URIC #### [facility] [address] [address] [address] Sarmad Patino Anion gap [Moles/Vol] 12.0 mmol/L Normal [facility] Comment on above: Performed By: #### D DAVIDSON, MG, PHOS, CMP, LIPID, URIC #### [facility] [address] [address] [address] Sarmad Patino AST [Catalytic activity/Vol] 20 U/L Normal 15-37 [facility] Comment on above: Performed By: #### D DAVIDOSN, MG, PHOS, CMP, LIPID, URIC #### [facility] [address] [address] [address] Sarmad Patino Bilirubin [Mass/Vol] 0.5 mg/dL Normal 0.2-1.0 [facility] Comment on above: Performed By: #### D DAVIDSON, MG, PHOS, CMP, LIPID, URIC #### [facility] [address] [address] [address] Sarmad Patino Calcium [Mass/Vol] 9.1 mg/dL Normal 8.5-10.1 [facility] Comment on above: Performed By: #### D DAVIDSON, MG, PHOS, CMP, LIPID, URIC #### [facility] [address] [address] [address] Sarmad Patino Chloride [Moles/Vol] 104 mmol/L Normal 98-107 [facility] Comment on above: Performed By: #### D DAVIDSON, MG, PHOS, CMP, LIPID, URIC #### [facility] [address] [address] [address] Sarmad Patino CO2 [Moles/Vol] 25.7 mmol/L Normal 21.0-32.0 [facility] Comment on above: Performed By: #### D DAVIDSON, MG, PHOS, CMP, LIPID, URIC #### [facility] [address] [address] [address] Sarmad Patino Creatinine [Mass/Vol] 0.77 mg/dL Normal 0.55-1.02 [facility] Comment on above: Performed By: #### D DAVIDSON, MG, PHOS, CMP, LIPID, URIC #### [facility] [address] [address] [address] Sarmad Patino EGFR-AF MALTESE >60 Normal >=60 [facility] Comment on above: Performed By: #### D DAVIDSON, MG, PHOS, CMP, LIPID, URIC #### [facility] [address] [address] [address] Sarmad Patino EGFR-NON AF MALTESE >60 Normal >=60 [facility] Comment on above: Performed By: #### D DAVIDSON, MG, PHOS, CMP, LIPID, URIC #### [facility] [address] [address] [address] Sarmad Patino Globulin (S) [Mass/Vol] 3.7 g/dL Normal [facility] Comment on above: Performed By: #### D DAVIDSON, MG, PHOS, CMP, LIPID, URIC #### [facility] [address] [address] [address] Sarmad Patino Glucose [Mass/Vol] 108 mg/dL Critically high 74-106 [facility] Comment on above: Performed By: #### D DAVIDSON, MG, PHOS, CMP, LIPID, URIC #### [facility] [address] [address] [address] Sarmad Patino Potassium [Moles/Vol] 3.7 mmol/L Normal 3.5-5.1 [facility] Comment on above: Performed By: #### D DAVIDSON, MG, PHOS, CMP, LIPID, URIC #### [facility] [address] [place] [address] Dr. Sarmad Patino Protein [Mass/Vol] 7.0 g/dL Normal 6.4-8.2 [facility] Comment on above: Performed By: #### D DAVIDSON, MG, PHOS, CMP, LIPID, URIC #### [facility] [address] [place] [address] Dr. Sarmad Patino Sodium [Moles/Vol] 138 mmol/L Normal 136-145 [facility] Comment on above: Performed By: #### D DAVIDSON, MG, PHOS, CMP, LIPID, URIC #### [facility] [address] [place] [address] Dr. Sarmad Patino Urea nitrogen [Mass/Vol] 15.0 mg/dL Normal 7.0-18.0 [facility] Comment on above: Performed By: #### D DAVIDSON, MG, PHOS, CMP, LIPID, URIC #### [facility] [address] [address] [address] Sarmad Patino Urea nitrogen/Creatinine [Mass ratio] 19.5 mg/mg Normal [facility] Comment on above: Performed By: #### D DAVIDSON, MG, PHOS, CMP, LIPID, URIC #### [facility] [address] [place] [address] Dr. Sarmad Patino URIC ACID SERUMon 01-28-2022 Urate [Mass/Vol] 4.3 mg/dL Normal 2.6-6.0 [facility] Comment on above: Performed By: #### D DAVIDSON, MG, PHOS, CMP, LIPID, URIC #### [facility] [address] [address] [address] Sarmad Patino Quick Strepon 01-12-2022 S. pyogenes Org specific cx Ql (Throat) Negative TrenDemon Other Quick Strep TrenDemon Other XR CHEST 1 Von 01-07-2022 XR [...] ATYPICAL LYMPH # 1.40 103/ul Normal [facility] Comment on above: Performed By: #### D DAVIDSON, MG, PHOS, CMP, LIPID, URIC #### [facility] [address] [address] [address] Sarmad Patino ATYPICAL LYMPH % 10 % Normal [facility] Comment on above: Performed By: #### D DAVIDSON, MG, PHOS, CMP, LIPID, URIC #### [facility] [id number] Sarmad Patino BAND # 0.6 103/ul Critically high 0.0-0.3 [facility] Comment on above: Performed By: #### D DAVIDSON, MG, PHOS, CMP, LIPID, URIC #### [facility] [address] [address] [address] Sarmad Patino BAND % 4 % Normal 0-5 [facility] Comment on above: Performed By: #### D DAVIDSON, MG, PHOS, CMP, LIPID, URIC #### [facility] [address] [place] [address] Dr. Sarmad Patino BASOM # 0.00 103/ul Normal 0.00-0.10 [facility] Comment on above: Performed By: #### D DAVIDSON, MG, PHOS, CMP, LIPID, URIC #### [facility] [address] [address] [address] Sarmad Patino BASOM % 0.0 % Critically low 0.2-2.0 [facility] Comment on above: Performed By: #### D DAVIDSON, MG, PHOS, CMP, LIPID, URIC #### [facility] [address] [place] [address] Dr. Sarmad Patino BLAST # Normal [facility] Comment on above: Performed By: #### D DAVIDSON, MG, PHOS, CMP, LIPID, URIC #### [facility] [address] [place] [address] Dr. Sarmad Patino BLAST % Normal [facility] Comment on above: Performed By: #### D DAVIDSON, MG, PHOS, CMP, LIPID, URIC #### [facility] [address] [address] [address] Sarmad Patino CORRECTED WBC Normal 4.0-11.0 [facility] Comment on above: Performed By: #### D DAVIDSON, MG, PHOS, CMP, LIPID, URIC #### [facility] [address] [place] [address] Dr. Sarmad Patino EOS # 0.14 103/ul Normal 0.00-0.70 [facility] Comment on above: Performed By: #### D DAVIDSON, MG, PHOS, CMP, LIPID, URIC #### [facility] [address] [place] [address] Dr. Sarmad Patino EOS% 1.0 % Normal 0.9-7.0 [facility] Comment on above: Performed By: #### D DAVIDSON, MG, PHOS, CMP, LIPID, URIC #### [facility] [address] [address] [address] Sarmad Patino HCT 42.8 % Normal 36.0-48.0 [facility] Comment on above: Performed By: #### D DAVIDSON, MG, PHOS, CMP, LIPID, URIC #### [facility] [address] [address] [address] Sarmad Patino HGB 14.2 g/dl Normal 12.0-16.0 [facility] Comment on above: Performed By: #### D DAVIDSON, MG, PHOS, CMP, LIPID, URIC #### [facility] [address] [address] [address] Sarmad Patino LYMPHM # 0.00 103/ul Critically low 1.20-3.80 [facility] Comment on above: Performed By: #### D DAVIDSON, MG, PHOS, CMP, LIPID, URIC #### [facility] [address] [place] [address] Dr. Sarmad Patino LYMPHM% 0.0 % Critically low 20.5-60.0 [facility] Comment on above: Performed By: #### D DAVIDSON, MG, PHOS, CMP, LIPID, URIC #### [facility] [address] [place] [address] Dr. Sarmad Patino MCH 28.8 pg Normal 26.7-34.0 [facility] Comment on above: Performed By: #### D DAVIDSON, MG, PHOS, CMP, LIPID, URIC #### [facility] [address] [place] [address] Dr. Sarmad Patino MCHC 33.2 g/dl Normal 29.9-35.2 [facility] Comment on above: Performed By: #### D DAVIDSON, MG, PHOS, CMP, LIPID, URIC #### [facility] [address] [place] [address] Dr. Sarmad Patino MCV 86.8 fL Normal 81.0-99.0 [facility] Comment on above: Performed By: #### D DAVIDSON, MG, PHOS, CMP, LIPID, URIC #### [facility] [address] [address] [address] Sarmad Patino METAMYELOCYTE # Normal [facility] Comment on above: Performed By: #### D DAVIDSON, MG, PHOS, CMP, LIPID, URIC #### [facility] [address] [address] [address] Sarmad Patino METAMYELOCYTE % Normal [facility] Comment on above: Performed By: #### D DAVIDSON, MG, PHOS, CMP, LIPID, URIC #### [facility] [address] [address] [address] Sarmad Patino MONOM# 0.84 103/ul Critically high 0.30-0.80 [facility] Comment on above: Performed By: #### D DAVIDSON, MG, PHOS, CMP, LIPID, URIC #### [facility] [address] [address] [address] Sarmad Patino MONOM% 6.0 % Normal 1.7-12.0 [facility] Comment on above: Performed By: #### D DAVIDSON, MG, PHOS, CMP, LIPID, URIC #### [facility] [address] [address] [address] Sarmad Patino MPV 11.5 fL Normal 9.5-13.5 [facility] Comment on above: Performed By: #### D DAVIDSON, MG, PHOS, CMP, LIPID, URIC #### [facility] [address] [address] [address] Sarmad Patino MYELOCYTE # 0.3 103/ul Normal [facility] Comment on above: Performed By: #### D DAVIDSON, MG, PHOS, CMP, LIPID, URIC #### [facility] [address] [address] [address] Sarmad Patino MYELOCYTE % 2 % Normal [facility] Comment on above: Performed By: #### D DAVIDSON, MG, PHOS, CMP, LIPID, URIC #### [facility] [address] [address] [address] Sarmad Patino NRBC Normal [facility] Comment on above: Performed By: #### D DAVIDSON, MG, PHOS, CMP, LIPID, URIC #### [facility] [address] [address] [address] Sarmad Patino PLT 180 103/ul Normal 150-450 [facility] Comment on above: Performed By: #### D DAVIDSON, MG, PHOS, CMP, LIPID, URIC #### [facility] [address] [address] [address] Sarmad Patino RBC 4.93 106/ul Normal 4.20-5.40 [facility] Comment on above: Performed By: #### D DAVIDSON, MG, PHOS, CMP, LIPID, URIC #### [facility] [address] [address] [address] Sarmad Patino RDW 13.9 % Normal 11.0-15.0 [facility] Comment on above: Performed By: #### D DAVIDSON, MG, PHOS, CMP, LIPID, URIC #### [facility] [address] [address] [address] Sarmad Patino SEG # 10.78 103/ul Critically high 1.40-6.50 [facility] Comment on above: Performed By: #### D DAVIDSON, MG, PHOS, CMP, LIPID, URIC #### [facility] [address] [address] [address] Sarmad Patino SEG % 77.0 % Critically high 43.0-75.0 [facility] Comment on above: Performed By: #### D DAVIDSON, MG, PHOS, CMP, LIPID, URIC #### [facility] [address] [address] [address] Sarmad Patino WBC 14.0 103/ul Critically high 4.0-11.0 [facility] Comment on above: Performed By: #### D DAVIDSON, MG, PHOS, CMP, LIPID, URIC #### [facility] [address] [place] [address] NECK [address] W [...] middle ear cavities clear. Skull base intact. Traveling Secretary spaces normal. Parotid glands normal. Submandibular glands [...] F HOPPER Date: 2022-01-03 10:40 Normal [facility]on SARS-CoV-2 (COVID-19) RNA MURALI+probe [...] for this test is supported by the Senior Linux Administrator of Health and Human Service's declaration that [...] URIC #### [facility] [address] [place] [address] Dr. Sarmad Patino GROUP A STREP CULTUREon S. pyogenes Ag Ql (Unsp spec) Culture Observations: Negative for Group A Streptococcus Normal [facility] Comment on above: Performed By: #### U JUVE, LIPID, MG, CMP, DBIL, PHOS #### [facility] [address] [place] [address] Dr. Sarmad Patino INFLUENZA A AND B AGon 01-03 INFLUENZA A AG Negative Normal NEGATIVE SEE COMMENT [facility] Comment on above: Performed By: #### D DAVIDSON, MG, PHOS, CMP, LIPID, URIC #### [facility] [address] [place] [address] Dr. Sarmad Patino INFLUENZA B AG Negative Normal NEGATIVE SEE COMMENT [facility] Comment on above: Performed By: #### D DAVIDSON, MG, PHOS, CMP, LIPID, URIC #### [facility] [address] [place] [address] Dr. Sarmad Patino INTERNAL CONTROLS Within Normal Limits Normal Wi thin Normal Limits [facility] Comment on above: Performed By: #### D DAVIDSON, MG, PHOS, CMP, LIPID, URIC #### [facility] [address] [place] [address] Dr. Sarmad Patino PROF 14(COMP METB)on 022 Albumin [Mass/Vol] 2.5 g/dL Critically low 3.4-5.0 [facility] e [facility] Comment on above: Performed By: #### U JUVE, LIPID, MG, CMP, DBIL, PHOS #### [facility] [address] [place] [address] Dr. Sarmad Patino Albumin/Globulin [Mass ratio] 0.5 {ratio} Normal [facility] Comment on above: Performed By: #### U JUVE, LIPID, MG, CMP, DBIL, PHOS #### [facility] [address] [address] [address] Sarmad Patino ALP [Catalytic activity/Vol] 185 U/L Critically high 46-116 [facility] Comment on above: Performed By: #### U JUVE, LIPID, MG, CMP, DBIL, PHOS #### [facility] [address] [place] [address] Dr. Sarmad Patino ALT [Catalytic activity/Vol] 108 U/L Critically high 14-59 [facility] Comment on above: Performed By: #### U JUVE, LIPID, MG, CMP, DBIL, PHOS #### [facility] [address] [place] [address] Dr. Sarmad Patino Anion gap [Moles/Vol] 8.3 mmol/L Normal [facility] Comment on above: Performed By: #### U JUVE, LIPID, MG, CMP, DBIL, PHOS #### [facility] [address] [place] [address] Dr. Sarmad Patino AST [Catalytic activity/Vol] 59 U/L Critically high 15-37 [facility] Comment on above: Performed By: #### U JUVE, LIPID, MG, CMP, DBIL, PHOS #### [facility] [address] [place] [address] Dr. Sarmad Patino Bilirubin [Mass/Vol] 0.6 mg/dL Normal 0.2-1.0 [facility] Comment on above: Performed By: #### U JUVE, LIPID, MG, CMP, DBIL, PHOS #### [facility] [address] [place] [address] Dr. Sarmad Patino Calcium [Mass/Vol] 9.0 mg/dL Normal 8.5-10.1 [facility] Comment on above: Performed By: #### U JUVE, LIPID, MG, CMP, DBIL, PHOS #### [facility] [address] [place] [address] Dr. Sarmad Patino Chloride [Moles/Vol] 100 mmol/L Normal 98-107 [facility] Comment on above: Performed By: #### U JUVE, LIPID, MG, CMP, DBIL, PHOS #### [facility] [address] [address] [address] Sarmad Patino CO2 [Moles/Vol] 29.0 mmol/L Normal 21.0-32.0 [facility] Comment on above: Performed By: #### U JUVE, LIPID, MG, CMP, DBIL, PHOS #### [facility] [address] [place] [address] Dr. Sarmad Patino Creatinine [Mass/Vol] 1.05 mg/dL Critically high 0.55-1.02 [facility] Comment on above: Performed By: #### U JUVE, LIPID, MG, CMP, DBIL, PHOS #### [facility] [address] [place] [address] Dr. Sarmad Patino EGFR-AF MALTESE >60 Normal >=60 [facility] Comment on above: Performed By: #### U JUVE, LIPID, MG, CMP, DBIL, PHOS #### [facility] [address] [place] [address] Dr. Sarmad Patino EGFR-NON AF MALTESE 53 mL/min/1.73m2 Critically low >=60 [facility] Comment on above: Performed By: #### U JUVE, LIPID, MG, CMP, DBIL, PHOS #### [facility] [address] [place] [address] Dr. Sarmad Patino Globulin (S) [Mass/Vol] 4.6 g/dL Normal [facility] Comment on above: Performed By: #### U JUVE, LIPID, MG, CMP, DBIL, PHOS #### [facility] [address] [place] [address] Dr. Sarmad Patino Glucose [Mass/Vol] 154 mg/dL Critically high 74-106 [facility] Comment on above: Performed By: #### U JUVE, LIPID, MG, CMP, DBIL, PHOS #### [facility] [address] [place] [address] Dr. Sarmad Patino Potassium [Moles/Vol] 3.3 mmol/L Critically low 3.5-5.1 [facility] Comment on above: Performed By: #### U JUVE, LIPID, MG, CMP, DBIL, PHOS #### [facility] [address] [address] [address] Sarmad Patino Protein [Mass/Vol] 7.1 g/dL Normal 6.4-8.2 [facility] Comment on above: Performed By: #### U JUVE, LIPID, MG, CMP, DBIL, PHOS #### [facility] [address] [address] [address] Sarmad Patino Sodium [Moles/Vol] 134 mmol/L Critically low 136-[address] [facility] Comment on above: Performed By: #### U JUVE, LIPID, MG, CMP, DBIL, PHOS #### [facility] [address] [place] [address] Dr. Sarmad Patino Urea nitrogen [Mass/Vol] 24.0 mg/dL Critically high 7.0-18.0 [facility] Comment on above: Performed By: #### U JUVE, LIPID, MG, CMP, DBIL, PHOS #### [facility] [address] [place] [address] Dr. Sarmad Patino Urea nitrogen/Creatinine [Mass ratio] 22.9 mg/mg Normal [facility] Comment on above: Performed By: #### U JUVE, LIPID, MG, CMP, DBIL, PHOS #### [facility] [address] [place] [address] Dr. Sarmad Patino STREPT SCREENon 01-03-2022 STREP SCREEN A Negative Normal NEGATIVE [facility] Comment on above: Performed By: #### U JUVE, LIPID, MG, CMP, DBIL, PHOS #### [facility] [address] [place] [address] Dr. Sarmad Patino XR CHEST 2 Von [...] pyogenes Org specific cx Ql (Throat) Negative [facility] 5 examples Other Quick Strep [facility] 5 examples Other SARS-CoV-2 (COVID-19) RNA NA A+probe Ql (Resp)on 12-25-2021 SARS-CoV-2 (COVID-19) RNA MURALI+probe Ql (Unsp spec) Negative [facility] 5 examples Other FK506 (TACROLIMUS) WHOLE BLO ODon 12-08-2021 Tacrolimus (FK506), Blood 6.6 ng/mL Normal 2.0-20.0 [facility] Comment on above: Result Comment: Trou gh (immediately following transplant) 15.0 . Trough (steady state, 2 weeks or more after transplant): 3.0 - 8.0 . Performed by LC-MS/MS technology. Performed By: #### D DAVIDSON, MG, PHOS, CMP, LIPID, URIC #### [facility] [address] [address] [address] Sarmad Patino RAPAMUNE(SIROLIMUS)on 2021 Rapamune(Sirolimus), whole blood 9.6 ng/mL Normal 3.0-20.0 [facility] Comment on above: Result Comment: Perf ormed by LC/MS-MS technology . This test was developed and its performance characteristics determined by [employer]. It has not been cleared or approved by the Food and Drug Administration. Performed By: #### D DAVIDSON, MG, PHOS, CMP, LIPID, URIC #### [facility] [id number] Sarmad Patino BILIRUBIN CONJUGATED (DIRECT )on 12-05-2021 BILI, CONJUGATED 0.1 mg/dL Normal 0.0-0.2 [facility] Comment on above: Performed By: #### D DAVIDSON, MG, PHOS, CMP, LIPID, URIC #### [facility] [address] [place] [address] Dr. Sarmad Patino CBC W MANUAL DIFFon 12-06-19 22 ATYPICAL LYMPH # Normal [facility] Comment on above: Performed By: #### D DAVIDSON, MG, PHOS, CMP, LIPID, URIC #### [facility] [address] [place] [address] Dr. Sarmad Patino ATYPICAL LYMPH % Normal [facility] Comment on above: Performed By: #### D DAVIDSON, MG, PHOS, CMP, LIPID, URIC #### [facility] [address] [place] [address] Dr. Sarmad Patino BAND # Normal 0.0-0.3 [facility] Comment on above: Performed By: #### D DAVIDSON, MG, PHOS, CMP, LIPID, URIC #### [facility] [address] [place] [address] Dr. Sarmad Patino BAND % Normal 0-5 [facility] Comment on above: Performed By: #### D DAVIDSON, MG, PHOS, CMP, LIPID, URIC #### [facility] [address] [place] [address] Dr. Sarmad Patino BASOM # 0.00 103/ul Normal 0.00-0.10 [facility] Comment on above: Performed By: #### D DAVIDSON, MG, PHOS, CMP, LIPID, URIC #### [facility] [address] [place] [address] Dr. Sarmad Patino BASOM % 0.0 % Critically low 0.2-2.0 [facility] Comment on above: Performed By: #### D DAVIDSON, MG, PHOS, CMP, LIPID, URIC #### [facility] [address] [place] [address] Dr. Sarmad Patino BLAST # Normal [facility] Comment on above: Performed By: #### D DAVIDSON, MG, PHOS, CMP, LIPID, URIC #### [facility] [address] [place] [address] Dr. Sarmad Patino BLAST % Normal [facility] Comment on above: Performed By: #### D DAVIDSON, MG, PHOS, CMP, LIPID, URIC #### [facility] [address] [address] [address] Sarmad Patino CORRECTED WBC Normal 4.0-11.0 [facility] Comment on above: Performed By: #### D DAVIDSON, MG, PHOS, CMP, LIPID, URIC #### [facility] [address] [address] [address] Sarmad Patino EOS # 0.15 103/ul Normal 0.00-0.70 [facility] Comment on above: Performed By: #### D DAVIDSON, MG, PHOS, CMP, LIPID, URIC #### [facility] [address] [place] [address] Dr. Sarmad Patino EOS% 2.0 % Normal 0.9-7.0 [facility] Comment on above: Performed By: #### D DAVIDSON, MG, PHOS, CMP, LIPID, URIC #### [facility] [address] [place] [address] Dr. Sarmad Patino HCT 47.5 % Normal 36.0-48.0 [facility] Comment on above: Performed By: #### D DAVIDSON, MG, PHOS, CMP, LIPID, URIC #### [facility] [address] [place] [address] Dr. Sarmad Patino HGB 15.6 g/dl Normal 12.0-16.0 [facility] Comment on above: Performed By: #### D DAVIDSON, MG, PHOS, CMP, LIPID, URIC #### [facility] [address] [place] [address] Dr. Sarmad Patino LYMPHM # 1.46 103/ul Normal 1.20-3.80 [facility] Comment on above: Performed By: #### D DAVIDSON, MG, PHOS, CMP, LIPID, URIC #### [facility] [address] [place] [address] Dr. Sarmad Patino LYMPHM% 19.0 % Critically low 20.5-60.0 [facility] Comment on above: Performed By: #### D DAVIDSON, MG, PHOS, CMP, LIPID, URIC #### [facility] [address] [address] [address] Sarmad Patino MCH 28.9 pg Normal 26.7-34.0 [facility] Comment on above: Performed By: #### D DAVIDSON, MG, PHOS, CMP, LIPID, URIC #### [facility] [address] [address] [address] Sarmad Patino MCHC 32.8 g/dl Normal 29.9-35.2 [facility] Comment on above: Performed By: #### D DAVIDSON, MG, PHOS, CMP, LIPID, URIC #### [facility] [address] [place] [address] Dr. Sarmad Patino MCV 88.1 fL Normal 81.0-99.0 [facility] Comment on above: Performed By: #### D DAVIDSON, MG, PHOS, CMP, LIPID, URIC #### [facility] [address] [place] [address] Dr. Sarmad Patino METAMYELOCYTE # Normal [facility] Comment on above: Performed By: #### D DAVIDSON, MG, PHOS, CMP, LIPID, URIC #### [facility] [address] [place] [address] Dr. Sarmad Patino METAMYELOCYTE % Normal [facility] Comment on above: Performed By: #### D DAVIDSON, MG, PHOS, CMP, LIPID, URIC #### [facility] [address] [place] [address] Dr. Sarmad Patino MONOM# 0.85 103/ul Critically high 0.30-0.80 [facility] Comment on above: Performed By: #### D DAVIDSON, MG, PHOS, CMP, LIPID, URIC #### [facility] [address] [place] [address] Dr. Sarmad Patino MONOM% 11.0 % Normal 1.7-12.0 [facility] Comment on above: Performed By: #### D DAVIDSON, MG, PHOS, CMP, LIPID, URIC #### [facility] [address] [place] [address] Dr. Sarmad Patino MPV 11.3 fL Normal 9.5-13.5 [facility] Comment on above: Performed By: #### D DAVIDSON, MG, PHOS, CMP, LIPID, URIC #### [facility] [address] [place] [address] Dr. Sarmad Patino MYELOCYTE # Normal [facility] Comment on above: Performed By: #### D DAVIDSON, MG, PHOS, CMP, LIPID, URIC #### [facility] [address] [address] [address] Sarmad Patino MYELOCYTE % Normal [facility] Comment on above: Performed By: #### D DAVIDSON, MG, PHOS, CMP, LIPID, URIC #### [facility] [address] [address] [address] Sarmad Patino NRBC Normal [facility] Comment on above: Performed By: #### D DAVIDSON, MG, PHOS, CMP, LIPID, URIC #### [facility] [address] [address] [address] Sarmad Patino PLT 214 103/ul Normal 150-450 [facility] Comment on above: Performed By: #### D DAVIDSON, MG, PHOS, CMP, LIPID, URIC #### [facility] [address] [address] [address] Sarmad Patino RBC 5.39 106/ul Normal 4.20-5.40 [facility] Comment on above: Performed By: #### D DAVIDSON, MG, PHOS, CMP, LIPID, URIC #### [facility] [address] [place] [address] Dr. Sarmad Patino RDW 13.8 % Normal 11.0-15.0 [facility] Comment on above: Performed By: #### D DAVIDSON, MG, PHOS, CMP, LIPID, URIC #### [facility] [address] [address] [address] Sarmad Patino SEG # 5.24 103/ul Normal 1.40-6.50 [facility] Comment on above: Performed By: #### D DAVIDSON, MG, PHOS, CMP, LIPID, URIC #### [facility] [address] [address] [address] Sarmad Patino SEG % 68.0 % Normal 43.0-75.0 [facility] Comment on above: Performed By: #### D DAVIDSON, MG, PHOS, CMP, LIPID, URIC #### [facility] [address] [address] [address] Sarmad Patino WBC 7.7 103/ul Normal 4.0-11.0 [facility] Comment on above: Performed By: #### D DAVIDSON, MG, PHOS, CMP, LIPID, URIC #### [facility] [address] [address] [address] Sarmad Patino LIPID PROFILEon 12-05-2021 CHOL-HDL RATIO NORM SEE BELOW Normal [facility] Comment on above: Result Comment: 3.3 - 4.4 LOW RISK 4.4 - 7.1 AVERAGE RISK 7.1 - 11.0 MODERATE RISK >11.0 HIGH RISK Performed By: #### D DAVIDSON, MG, PHOS, CMP, LIPID, URIC #### [facility] [address] [address] [address] Sarmad Patino Cholesterol [Mass/Vol] 170 mg/dL Normal <=200 [facility] Comment on above: Performed By: #### D DAVIDSON, MG, PHOS, CMP, LIPID, URIC #### [facility] [address] [address] [address] Sarmad Patino Cholesterol in HDL [Mass/Vol] 54 mg/dL Normal 40-60 [facility] Comment on above: Performed By: #### D DAVIDSON, MG, PHOS, CMP, LIPID, URIC #### [facility] [address] [address] [address] Sarmad Patino Cholesterol in LDL [Mass/Vol] 92.2 mg/dL Normal [facility] Comment on above: Performed By: #### D DAVIDSON, MG, PHOS, CMP, LIPID, URIC #### [facility] [address] [address] [address] Sarmad Patino Cholesterol.total/Cho lesterol in HDL [Mass ratio] 3.1 {ratio} Normal [facility] Comment on above: Performed By: #### D DAVIDSON, MG, PHOS, CMP, LIPID, URIC #### [facility] [address] [address] [address] Sarmad Patino HDL NORMAL > or = 60 mg/dl - LO W CARDIOVASCULAR RISK <40 mg/dl - HIGH CARDIOVASCULAR RISK Normal [facility] Comment on above: Performed By: #### D DAVIDSON, MG, PHOS, CMP, LIPID, URIC #### [facility] [address] [address] [address] Sarmad Patino LDL CALC NORMAL SEE BELOW Normal [facility] Comment on above: Result Comment: <100 mg/dl OPTIMAL 100 - 129 mg/dl NEAR OR ABOVE OPTIMAL 130 - 159 mg/dl BORDERLINE HIGH 160 - 189 mg/dl HIGH >190 mg/dl VERY HIGH Performed By: #### D DAVIDSON, MG, PHOS, CMP, LIPID, URIC #### [facility] [address] [address] [address] Sarmad Patino Triglyceride [Mass/Vol] 119 mg/dL Normal <=150 [facility] Comment on above: Performed By: #### D DAVIDSON, MG, PHOS, CMP, LIPID, URIC #### [facility] [address] [address] [address] Sarmad Patino VLDL CALC 23.8 mg/dL Normal [facility] Comment on above: Performed By: #### D DAVIDSON, MG, PHOS, CMP, LIPID, URIC #### [facility] [address] [address] [address] Sarmad Patino MAGNESIUMon 12-05-2021 Magnesium [Mass/Vol] 1.8 mg/dL Normal 1.8-2.4 [facility] Comment on above: Performed By: #### D DAVIDSON, MG, PHOS, CMP, LIPID, URIC #### [facility] [address] [address] [address] Sarmad Patino PHOSPHORUSon 12-05-2021 Phosphate [Mass/Vol] 3.8 mg/dL Normal 2.6-4.7 [facility] Comment on above: Performed By: #### D DAVIDSON, MG, PHOS, CMP, LIPID, URIC #### [facility] [address] [place] [address] Dr. Sarmad Patino PROF 14(COMP METB)on 022 Albumin [Mass/Vol] 3.7 g/dL Normal 3.4-5.0 [facility] Comment on above: Performed By: #### D DAVIDSON, MG, PHOS, CMP, LIPID, URIC #### [facility] [address] [place] [address] Dr. Sarmad Patino Albumin/Globulin [Mass ratio] 1.0 {ratio} Normal [facility] Comment on above: Performed By: #### D DAVIDSON, MG, PHOS, CMP, LIPID, URIC #### [facility] [address] [place] [address] Dr. Sarmad Patino ALP [Catalytic activity/Vol] 151 U/L Critically high 46-116 [facility] Comment on above: Performed By: #### D DAVIDSON, MG, PHOS, CMP, LIPID, URIC #### [facility] [address] [place] [address] Dr. Sarmad Patino ALT [Catalytic activity/Vol] 27 U/L Normal 14-59 [facility] Comment on above: Performed By: #### D DAVIDSON, MG, PHOS, CMP, LIPID, URIC #### [facility] [address] [place] [address] Dr. Sarmad Patino Anion gap [Moles/Vol] 14.5 mmol/L Normal [facility] Comment on above: Performed By: #### D DAVIDSON, MG, PHOS, CMP, LIPID, URIC #### [facility] [address] [place] [address] Dr. Sarmad Patino AST [Catalytic activity/Vol] 25 U/L Normal 15-37 [facility] Comment on above: Performed By: #### D DAVIDSON, MG, PHOS, CMP, LIPID, URIC #### [facility] [address] [place] [address] Dr. Sarmad Patino Bilirubin [Mass/Vol] 0.4 mg/dL Normal 0.2-1.0 [facility] Comment on above: Performed By: #### D DAVIDSON, MG, PHOS, CMP, LIPID, URIC #### [facility] [address] [address] [address] Sarmad Patino Calcium [Mass/Vol] 9.4 mg/dL Normal 8.5-10.1 [facility] Comment on above: Performed By: #### D DAVIDSON, MG, PHOS, CMP, LIPID, URIC #### [facility] [address] [place] [address] Dr. Sarmad Patino Chloride [Moles/Vol] 103 mmol/L Normal 98-107 [facility] Comment on above: Performed By: #### D DAVIDSON, MG, PHOS, CMP, LIPID, URIC #### [facility] [address] [place] [address] Dr. Sarmad Patino CO2 [Moles/Vol] 26.5 mmol/L Normal 21.0-32.0 [facility] Comment on above: Performed By: #### D DAVIDSON, MG, PHOS, CMP, LIPID, URIC #### [facility] [address] [place] [address] Dr. Sarmad Patino Creatinine [Mass/Vol] 0.87 mg/dL Normal 0.55-1.02 [facility] Comment on above: Performed By: #### D DAVIDSON, MG, PHOS, CMP, LIPID, URIC #### [facility] [address] [place] [address] Dr. Sarmad Patino EGFR-AF MALTESE >60 Normal >=60 [facility] Comment on above: Performed By: #### D DAVIDSON, MG, PHOS, CMP, LIPID, URIC #### [facility] [address] [place] [address] Dr. Sarmad Patino EGFR-NON AF MALTESE >60 Normal >=60 [facility] Comment on above: Performed By: #### D DAVIDSON, MG, PHOS, CMP, LIPID, URIC #### [facility] [address] [place] [address] Dr. Sarmad Patino Globulin (S) [Mass/Vol] 3.8 g/dL Normal [facility] Comment on above: Performed By: #### D DAVIDSON, MG, PHOS, CMP, LIPID, URIC #### [facility] [address] [address] [address] Sarmad Patino Glucose [Mass/Vol] 104 mg/dL Normal 74-106 [facility] Comment on above: Performed By: #### D DAVIDSON, MG, PHOS, CMP, LIPID, URIC #### [facility] [address] [address] [address] Sarmad Patino Potassium [Moles/Vol] 4.0 mmol/L Normal 3.5-5.1 [facility] Comment on above: Performed By: #### D DAVIDSON, MG, PHOS, CMP, LIPID, URIC #### [facility] [address] [address] [address] Sarmad Patino Protein [Mass/Vol] 7.5 g/dL Normal 6.4-8.2 [facility] Comment on above: Performed By: #### D DAVIDSON, MG, PHOS, CMP, LIPID, URIC #### [facility] [address] [place] [address] Dr. Sarmad Patino Sodium [Moles/Vol] 140 mmol/L Normal 136-145 [facility] Comment on above: Performed By: #### D DAVIDSON, MG, PHOS, CMP, LIPID, URIC #### [facility] [address] [address] [address] Sarmad Patino Urea nitrogen [Mass/Vol] 19.0 mg/dL Critically high 7.0-18.0 [facility] Comment on above: Performed By: #### D DAVIDSON, MG, PHOS, CMP, LIPID, URIC #### [facility] [address] [place] [address] Dr. Sarmad Patino Urea nitrogen/Creatinine [Mass ratio] 21.8 mg/mg Normal [facility] Comment on above: Performed By: #### D DAVIDSON, MG, PHOS, CMP, LIPID, URIC #### [facility] [address] [place] [address] Dr. Sarmad Patino URIC ACID SERUMon 12-05-2021 Urate [Mass/Vol] 5.2 mg/dL Normal 2.6-6.0 [facility] Comment on above: Performed By: #### D DAVIDSON, MG, PHOS, CMP, LIPID, URIC #### [facility] [address] [address] [address] Sarmad SALAZAROLIMU, WHOLE BLOODon EVEROLIMUS 7.0 ng/mL Normal 3.0-8.0 [facility] Comment on above: Result Comment: Perf ormed by LC-MS/MS technology. Performed By: #### D DAVIDSON, MG, PHOS, CMP, LIPID, URIC #### [facility] [address] [place] [address] Dr. Sarmad Patino FK506 (TACROLIMUS) WHOLE BLO ODon 11-10-2021 Tacrolimus (FK506), Blood 6.4 ng/mL Normal 2.0-20.0 [facility] Comment on above: Result Comment: Trou gh (immediately following transplant) 15.0 . Trough (steady state, 2 weeks or more after transplant): 3.0 - 8.0 . Performed by LC-MS/MS technology. Performed By: #### D DAVIDSON, MG, PHOS, CMP, LIPID, URIC #### [facility] [address] [place] [address] Dr. Sarmad Patino BK VIRUS PCR QUANTon 022 BKV DNA QUANT PCR PLASMA Negative Normal Negative [facility] Comment on above: Result Comment: No B K DNA detected. . The linear range of the assay is 22 - 100,000,000 IU/mL. Performed By: #### U JUVE, LIPID, MG, CMP, DBIL, PHOS #### [facility] [address] [place] [address] Dr. Sarmad Patino Log10 BKV DNA Plasma Normal [facility] Comment on above: Performed By: #### U JUVE, LIPID, MG, CMP, DBIL, PHOS #### [facility] [address] [place] [address] Dr. Sarmad Patino BILIRUBIN CONJUGATED (DIRECT )on 11-07-2021 BILI, CONJUGATED 0.1 mg/dL Normal 0.0-0.2 [facility] Comment on above: Performed By: #### D DAVIDSON, MG, PHOS, CMP, LIPID, URIC #### [facility] [address] [place] [address] Dr. Sarmad Patino CBC AUTO DIFFon 11-07-2021 BASO # 0.0 103/ul Normal 0.0-0.1 [facility] Comment on above: Performed By: #### D DAVIDSON, MG, PHOS, CMP, LIPID, URIC #### [facility] [address] [place] [address] Dr. Sarmad Patino Basophils/100 WBC (Bld) 0.3 % Normal 0.2-2.0 [facility] Comment on above: Performed By: #### D DAVIDSON, MG, PHOS, CMP, LIPID, URIC #### [facility] [address] [place] [address] Dr. Sarmad Patino EO # 0.1 103/ul Normal 0.0-0.7 [facility] Comment on above: Performed By: #### D DAVIDSON, MG, PHOS, CMP, LIPID, URIC #### [facility] [address] [place] [address] Dr. Sarmad Patino Eosinophils/100 WBC (Bld) 2.1 % Normal 0.9-7.0 [facility] Comment on above: Performed By: #### D DAVIDSON, MG, PHOS, CMP, LIPID, URIC #### [facility] [address] [place] [address] Dr. Sarmad Patino Erythrocyte distribution width (RBC) [Ratio] 13.5 % Normal 11.0-15.0 [facility] Comment on above: Performed By: #### D DAVIDSON, MG, PHOS, CMP, LIPID, URIC #### [facility] [address] [place] [address] Dr. Sarmad Patino Hematocrit (Bld) [Volume fraction] 46.7 % Normal 36.0-48.0 [facility] Comment on above: Performed By: #### D DAVIDSON, MG, PHOS, CMP, LIPID, URIC #### [facility] [address] [place] [address] Dr. Sarmad Patino Hemoglobin (Bld) [Mass/Vol] 15.1 g/dL Normal 12.0-16.0 [facility] Comment on above: Performed By: #### D DAVIDSON, MG, PHOS, CMP, LIPID, URIC #### [facility] [address] [address] [address] Sarmad Patino IG # 0.03 10e3/ul Normal 0.00-0.03 [facility] Comment on above: Performed By: #### D DAVIDSON, MG, PHOS, CMP, LIPID, URIC #### [facility] [address] [place] [address] Dr. Sarmad Patino IG % 0.5 % Normal 0.0-0.5 [facility] Comment on above: Performed By: #### D DAVIDSON, MG, PHOS, CMP, LIPID, URIC #### [facility] [address] [place] [address] Dr. Sarmad Patino LYMPH # 1.3 103/ul Normal 1.2-3.8 [facility] Comment on above: Performed By: #### D DAVIDSON, MG, PHOS, CMP, LIPID, URIC #### [facility] [address] [place] [address] Dr. Sarmad Patino Lymphocytes/100 WBC (Bld) 19.9 % Critically low 20.5-60.0 [facility] Comment on above: Performed By: #### D DAVIDSON, MG, PHOS, CMP, LIPID, URIC #### [facility] [address] [place] [address] Dr. Sarmad Patino MANUAL DIFF REQ NO Normal [facility] Comment on above: Performed By: #### D DAVIDSON, MG, PHOS, CMP, LIPID, URIC #### [facility] [address] [place] [address] Dr. Sarmad Patino MCH (RBC) [Entitic mass] 28.6 pg Normal 26.7-34.0 [facility] Comment on above: Performed By: #### D DAVIDSON, MG, PHOS, CMP, LIPID, URIC #### [facility] [address] [place] [address] Dr. Sarmad Patino MCHC (RBC) [Mass/Vol] 32.3 g/dL Normal 29.9-35.2 [facility] Comment on above: Performed By: #### D DAVIDSON, MG, PHOS, CMP, LIPID, URIC #### [facility] [address] [place] [address] Dr. Sarmad Patino MCV (RBC) [Entitic vol] 88.4 fL Normal 81.0-99.0 [facility] Comment on above: Performed By: #### D DAVIDSON, MG, PHOS, CMP, LIPID, URIC #### [facility] [address] [place] [address] Dr. Sarmad Patino MONO # 0.8 103/ul Normal 0.3-0.8 [facility] Comment on above: Performed By: #### D DAVIDSON, MG, PHOS, CMP, LIPID, URIC #### [facility] [address] [place] [address] Dr. Sarmad Patino Monocytes/100 WBC (Bld) 12.9 % Critically high 1.7-12.0 [facility] Comment on above: Performed By: #### D DAVIDSON, MG, PHOS, CMP, LIPID, URIC #### [facility] [address] [place] [address] Dr. Sarmad Patino NEUT # 4.0 103/ul Normal 1.4-6.5 [facility] Comment on above: Performed By: #### D DAVIDSON, MG, PHOS, CMP, LIPID, URIC #### [facility] [address] [place] [address] Dr. Sarmad Patino Neutrophils/100 WBC (Bld) 64.3 % Normal 43.0-75.0 [facility] Comment on above: Performed By: #### D DAVIDSON, MG, PHOS, CMP, LIPID, URIC #### [facility] [address] [place] [address] Dr. Sarmad Patino Platelet mean volume (Bld) [Entitic vol] 11.3 fL Normal 9.5-13.5 [facility] Comment on above: Performed By: #### D DAVIDSON, MG, PHOS, CMP, LIPID, URIC #### [facility] [address] [place] [address] Dr. Sarmad Patino PLT 241 103/ul Normal 150-450 [facility] Comment on above: Performed By: #### D DAVIDSON, MG, PHOS, CMP, LIPID, URIC #### [facility] [address] [address] [address] Sarmad Patino RBC 5.28 106/ul Normal 4.20-5.40 [facility] Comment on above: Performed By: #### D DAVIDSON, MG, PHOS, CMP, LIPID, URIC #### [facility] [address] [address] [address] Sarmad Patino WBC 6.3 103/ul Normal 4.0-11.0 [facility] Comment on above: Performed By: #### D DAVIDSON, MG, PHOS, CMP, LIPID, URIC #### [facility] [address] [address] [address] Sarmad Patino GLYCOHEMOGLOBIN A1Con 2021 ADA RECOMMENDATION SEE BELOW Normal [facility] Comment on above: Result Comment: ADA RECOMMENDED LIMIT 4.0 - 6.0 ADA THERAPEUTIC TARGET < 7.0 ACTION SUGGESTED > 7.0 Performed By: #### D DAVIDSON, MG, PHOS, CMP, LIPID, URIC #### [facility] [address] [address] [address] Sarmad Patino Glucose [Mass/Vol] 120 mg/dL Normal [facility] Comment on above: Performed By: #### D DAVIDSON, MG, PHOS, CMP, LIPID, URIC #### [facility] [address] [address] [address] Sarmad Patino HbA1c (Bld) [Mass fraction] 5.8 % Normal 4.5-6.2 [facility] Comment on above: Performed By: #### D DAVIDSON, MG, PHOS, CMP, LIPID, URIC #### [facility] [address] [address] [address] Sarmad Patino LIPID PROFILEon 11-07-2021 CHOL-HDL RATIO NORM SEE BELOW Normal [facility] Comment on above: Result Comment: 3.3 - 4.4 LOW RISK 4.4 - 7.1 AVERAGE RISK 7.1 - 11.0 MODERATE RISK >11.0 HIGH RISK Performed By: #### D DAVIDSON, MG, PHOS, CMP, LIPID, URIC #### [facility] [address] [address] [address] Sarmad Patino Cholesterol [Mass/Vol] 157 mg/dL Normal <=200 [facility] Comment on above: Performed By: #### D DAVIDSON, MG, PHOS, CMP, LIPID, URIC #### [facility] [address] [address] [address] Sarmad Patino Cholesterol in HDL [Mass/Vol] 48 mg/dL Normal 40-60 [facility] Comment on above: Performed By: #### D DAVIDSON, MG, PHOS, CMP, LIPID, URIC #### [facility] [address] [address] [address] Sarmad Patino Cholesterol in LDL [Mass/Vol] 89.6 mg/dL Normal [facility] Comment on above: Performed By: #### D DAVIDSON, MG, PHOS, CMP, LIPID, URIC #### [facility] [address] [address] [address] Sarmad Pation Cholesterol.total/Cho lesterol in HDL [Mass ratio] 3.3 {ratio} Normal [facility] Comment on above: Performed By: #### D DAVIDSON, MG, PHOS, CMP, LIPID, URIC #### [facility] [address] [address] [address] Sarmad Patino HDL NORMAL > or = 60 mg/dl - LO W CARDIOVASCULAR RISK <40 mg/dl - HIGH CARDIOVASCULAR RISK Normal [facility] Comment on above: Performed By: #### D DAVIDSON, MG, PHOS, CMP, LIPID, URIC #### [facility] [address] [address] [address] Sarmad Patino LDL CALC NORMAL SEE BELOW Normal [facility] Comment on above: Result Comment: <100 mg/dl OPTIMAL 100 - 129 mg/dl NEAR OR ABOVE OPTIMAL 130 - 159 mg/dl BORDERLINE HIGH 160 - 189 mg/dl HIGH >190 mg/dl VERY HIGH Performed By: #### D DAVIDSON, MG, PHOS, CMP, LIPID, URIC #### [facility] [address] [address] [address] Sarmad Patino Triglyceride [Mass/Vol] 97 mg/dL Normal <=150 [facility] Comment on above: Performed By: #### D DAVIDSON, MG, PHOS, CMP, LIPID, URIC #### [facility] [address] [place] [address] Dr. Sarmad Patino VLDL CALC 19.4 mg/dL Normal [facility] Comment on above: Performed By: #### D DAVIDSON, MG, PHOS, CMP, LIPID, URIC #### [facility] [address] [place] [address] Dr. Sarmad Patino MAGNESIUMon 11-07-2021 Magnesium [Mass/Vol] 1.9 mg/dL Normal 1.8-2.4 [facility] Comment on above: Performed By: #### D DAVIDSON, MG, PHOS, CMP, LIPID, URIC #### [facility] [address] [place] [address] Dr. Sarmad Patino PHOSPHORUSon 11-07-2021 Phosphate [Mass/Vol] 3.4 mg/dL Normal 2.6-4.7 [facility] Comment on above: Performed By: #### D DAVIDSON, MG, PHOS, CMP, LIPID, URIC #### [facility] [address] [place] [address] Dr. Sarmad Patino PROF 14(COMP METB)on 022 Albumin [Mass/Vol] 3.6 g/dL Normal 3.4-5.0 [facility] Comment on above: Performed By: #### D DAVIDSON, MG, PHOS, CMP, LIPID, URIC #### [facility] [address] [place] [address] Dr. Sarmad Patino Albumin/Globulin [Mass ratio] 0.9 {ratio} Normal [facility] Comment on above: Performed By: #### D DAVIDSON, MG, PHOS, CMP, LIPID, URIC #### [facility] [address] [place] [address] Dr. Sarmad Patino ALP [Catalytic activity/Vol] 158 U/L Critically high 46-116 [facility] Comment on above: Performed By: #### D DAVIDSON, MG, PHOS, CMP, LIPID, URIC #### [facility] [address] [place] [address] Dr. Sarmad Patino ALT [Catalytic activity/Vol] 23 U/L Normal 14-59 [facility] Comment on above: Performed By: #### D DAVIDSON, MG, PHOS, CMP, LIPID, URIC #### [facility] [address] [place] [address] Dr. Sarmad Patino Anion gap [Moles/Vol] 14.8 mmol/L Normal Th [facility] Comment on above: Performed By: #### D DAVIDSON, MG, PHOS, CMP, LIPID, URIC #### [facility] [address] [place] [address] Dr. Sarmad Patino AST [Catalytic activity/Vol] 18 U/L Normal 15-37 [facility] Comment on above: Performed By: #### D DAVIDSON, MG, PHOS, CMP, LIPID, URIC #### [facility] [address] [place] [address] Dr. Sarmad Patino Bilirubin [Mass/Vol] 0.4 mg/dL Normal 0.2-1.0 [facility] Comment on above: Performed By: #### D DAVIDSON, MG, PHOS, CMP, LIPID, URIC #### [facility] [address] [place] [address] Dr. Sarmad Patino Calcium [Mass/Vol] 9.3 mg/dL Normal 8.5-10.1 [facility] Comment on above: Performed By: #### D DAVIDSON, MG, PHOS, CMP, LIPID, URIC #### [facility] [address] [place] [address] Dr. Sarmad Patino Chloride [Moles/Vol] 105 mmol/L Normal 98-107 [facility] Comment on above: Performed By: #### D DAVIDSON, MG, PHOS, CMP, LIPID, URIC #### [facility] [address] [place] [address] Dr. Sarmad Patino CO2 [Moles/Vol] 26.1 mmol/L Normal 21.0-32.0 [facility] Comment on above: Performed By: #### D DAVIDSON, MG, PHOS, CMP, LIPID, URIC #### [facility] [address] [address] [address] Sarmad Patino Creatinine [Mass/Vol] 0.84 mg/dL Normal 0.55-1.02 [facility] Comment on above: Performed By: #### D DAVIDSON, MG, PHOS, CMP, LIPID, URIC #### [facility] [address] [address] [address] Sarmad Patino EGFR-AF MALTESE >60 Normal >=60 [facility] Comment on above: Performed By: #### D DAVIDSON, MG, PHOS, CMP, LIPID, URIC #### [facility] [address] [address] [address] Sarmad Patino EGFR-NON AF MALTESE >60 Normal >=60 [facility] Comment on above: Performed By: #### D DAVIDSON, MG, PHOS, CMP, LIPID, URIC #### [facility] [address] [place] [address] Dr. Sarmad Patino Globulin (S) [Mass/Vol] 3.8 g/dL Normal [facility] Comment on above: Performed By: #### D DAVIDSON, MG, PHOS, CMP, LIPID, URIC #### [facility] [address] [address] [address] Sarmad Patino Glucose [Mass/Vol] 97 mg/dL Normal 74-106 [facility] Comment on above: Performed By: #### D DAVIDSON, MG, PHOS, CMP, LIPID, URIC #### [facility] [address] [address] [address] Sarmad Patino Potassium [Moles/Vol] 3.9 mmol/L Normal 3.5-5.1 [facility] Comment on above: Performed By: #### D DAVIDSON, MG, PHOS, CMP, LIPID, URIC #### [facility] [address] [place] [address] Dr. Sarmad Patino Protein [Mass/Vol] 7.4 g/dL Normal 6.4-8.2 [facility] Comment on above: Performed By: #### D DAVIDSON, MG, PHOS, CMP, LIPID, URIC #### [facility] [address] [place] [address] Dr. Sarmad Patino Sodium [Moles/Vol] 142 mmol/L Normal 136-145 [facility] Comment on above: Performed By: #### D DAVIDSON, MG, PHOS, CMP, LIPID, URIC #### [facility] [address] [place] [address] Dr. Sarmad Patino Urea nitrogen [Mass/Vol] 21.0 mg/dL Critically high 7.0-18.0 [facility] Comment on above: Performed By: #### D DAVIDSON, MG, PHOS, CMP, LIPID, URIC #### [facility] [address] [address] [address] Sarmad Patino Urea nitrogen/Creatinine [Mass ratio] 25.0 mg/mg Normal [facility] Comment on above: Performed By: #### D DAVIDSON, MG, PHOS, CMP, LIPID, URIC #### [facility] [address] [place] [address] Dr. Sarmad Patino URIC ACID SERUMon 11-07-2021 Urate [Mass/Vol] 5.1 mg/dL Normal 2.6-6.0 [facility] Comment on above: Performed By: #### D DAVIDSON, MG, PHOS, CMP, LIPID, URIC #### [facility] [address] [place] [address] Dr. Sarmad Patino BOX TEST SENT OUTon 10-16-19 SENT TO REF LAB 10/15/2021 Normal [facility] Comment on above: Performed By: #### D DAVIDSON, MG, PHOS, CMP, LIPID, URIC #### [facility] [address] [place] [address] Dr. Sarmad CHRISTIEMU, WHOLE BLOODon EVEROLIMUS 6.7 ng/mL Normal 3.0-8.0 [facility] Comment on above: Result Comment: Perf ormed by LC-MS/MS technology. Performed By: #### D DAVIDSON, MG, PHOS, CMP, LIPID, URIC #### [facility] [address] [place] [address] Dr. Sarmad Patino FK506 (TACROLIMUS) WHOLE BLO ODon 07-13-2022 Tacrolimus (FK506), Blood 5.9 ng/mL Normal 2.0-20.0 [facility] Comment on above: Result Comment: Trou gh (immediately following transplant) 15.0 . Trough (steady state, 2 weeks or more after transplant): 3.0 - 8.0 . Performed by LC-MS/MS technology. Performed By: #### D DAVIDSON, MG, PHOS, CMP, LIPID, URIC #### [facility] [address] [place] [address] Dr. Sarmad Patino BILIRUBIN CONJUGATED (DIRECT )on 10-08-2021 BILI, CONJUGATED 0.1 mg/dL Normal 0.0-0.2 [facility] Comment on above: Performed By: #### U JUVE, LIPID, MG, CMP, DBIL, PHOS #### [facility] [address] [place] [address] Dr. Sarmad Patino CBC AUTO DIFFon 10-08-2021 BASO # 0.0 103/ul Normal 0.0-0.1 [facility] Comment on above: Performed By: #### D DAVIDSON, MG, PHOS, CMP, LIPID, URIC #### [facility] [address] [place] [address] Dr. Sarmad Patino Basophils/100 WBC (Bld) 0.1 % Critically low 0.2-2.0 [facility] Comment on above: Performed By: #### D DAVIDSON, MG, PHOS, CMP, LIPID, URIC #### [facility] [address] [place] [address] Dr. Sarmad Patino EO # 0.1 103/ul Normal 0.0-0.7 [facility] Comment on above: Performed By: #### D ADVIDSON, MG, PHOS, CMP, LIPID, URIC #### [facility] [address] [place] [address] Dr. Sarmad Patino Eosinophils/100 WBC (Bld) 1.4 % Normal 0.9-7.0 [facility] Comment on above: Performed By: #### D DAVIDSON, MG, PHOS, CMP, LIPID, URIC #### [facility] [address] [place] [address] Dr. Sarmad Patino Erythrocyte distribution width (RBC) [Ratio] 13.6 % Normal 11.0-15.0 [facility] Comment on above: Performed By: #### D DAVIDSON, MG, PHOS, CMP, LIPID, URIC #### [facility] [address] [place] [address] Dr. Sarmad Patino Hematocrit (Bld) [Volume fraction] 47.5 % Normal 36.0-48.0 [facility] Comment on above: Performed By: #### D DAVIDSON, MG, PHOS, CMP, LIPID, URIC #### [facility] [address] [place] [address] Dr. Sarmad Patino Hemoglobin (Bld) [Mass/Vol] 15.7 g/dL Normal 12.0-16.0 [facility] Comment on above: Performed By: #### D DAVIDSON, MG, PHOS, CMP, LIPID, URIC #### [facility] [address] [place] [address] Dr. Sarmad Patino IG # 0.04 10e3/ul Critically high 0.00-0.03 [facility] Comment on above: Performed By: #### D DAVIDSON, MG, PHOS, CMP, LIPID, URIC #### [facility] [address] [place] [address] Dr. Sarmad Patino IG % 0.5 % Normal 0.0-0.5 [facility] Comment on above: Performed By: #### D DAVIDSON, MG, PHOS, CMP, LIPID, URIC #### [facility] [address] [place] [address] Dr. Sarmad Patino LYMPH # 1.3 103/ul Normal 1.2-3.8 [facility] Comment on above: Performed By: #### D DAVIDSON, MG, PHOS, CMP, LIPID, URIC #### [facility] [address] [place] [address] Dr. Sarmad Patino Lymphocytes/100 WBC (Bld) 15.4 % Critically low 20.5-60.0 [facility] Comment on above: Performed By: #### D DAVIDSON, MG, PHOS, CMP, LIPID, URIC #### [facility] [address] [place] [address] Dr. Sarmad Patino MANUAL DIFF REQ NO Normal [facility] Comment on above: Performed By: #### D DAVIDSON, MG, PHOS, CMP, LIPID, URIC #### [facility] [address] [place] [address] Dr. Sarmad Patino MCH (RBC) [Entitic mass] 29.1 pg Normal 26.7-34.0 [facility] Comment on above: Performed By: #### D DAVIDSON, MG, PHOS, CMP, LIPID, URIC #### [facility] [address] [place] [address] Dr. Sarmad Patino MCHC (RBC) [Mass/Vol] 33.1 g/dL Normal 29.9-35.2 [facility] Comment on above: Performed By: #### D DAVIDSON, MG, PHOS, CMP, LIPID, URIC #### [facility] [address] [place] [address] Dr. Sarmad Patino MCV (RBC) [Entitic vol] 88.0 fL Normal 81.0-99.0 [facility] Comment on above: Performed By: #### D DAVIDSON, MG, PHOS, CMP, LIPID, URIC #### [facility] [address] [place] [address] Dr. Sarmad Patino MONO # 0.9 103/ul Critically high 0.3-0.8 [facility] Comment on above: Performed By: #### D DAVIDSON, MG, PHOS, CMP, LIPID, URIC #### [facility] [address] [place] [address] Dr. Sarmad Patino Monocytes/100 WBC (Bld) 10.2 % Normal 1.7-12.0 [facility] Comment on above: Performed By: #### D DAVIDSON, MG, PHOS, CMP, LIPID, URIC #### [facility] [address] [place] [address] Dr. Sarmad Patino NEUT # 6.1 103/ul Normal 1.4-6.5 [facility] Comment on above: Performed By: #### D DAVIDSON, MG, PHOS, CMP, LIPID, URIC #### [facility] [address] [address] [address] Sarmad Patino Neutrophils/100 WBC (Bld) 72.4 % Normal 43.0-75.0 [facility] Comment on above: Performed By: #### D DAVIDSON, MG, PHOS, CMP, LIPID, URIC #### [facility] [address] [address] [address] Sarmad Patino Platelet mean volume (Bld) [Entitic vol] 11.1 fL Normal 9.5-13.5 [facility] Comment on above: Performed By: #### D DAVIDSON, MG, PHOS, CMP, LIPID, URIC #### [facility] [address] [address] [address] Sarmad Patino PLT 213 103/ul Normal 150-450 [facility] Comment on above: Performed By: #### D DAVIDSON, MG, PHOS, CMP, LIPID, URIC #### [facility] [address] [place] [address] Dr. Sarmad Patino RBC 5.40 106/ul Normal 4.20-5.40 [facility] Comment on above: Performed By: #### D DAVIDSON, MG, PHOS, CMP, LIPID, URIC #### [facility] [address] [address] [address] Sarmad Patino WBC 8.4 103/ul Normal 4.0-11.0 [facility] Comment on above: Performed By: #### D DAVIDSON, MG, PHOS, CMP, LIPID, URIC #### [facility] [address] [address] [address] Sarmad Patino LIPID PROFILEon 10-08-2021 CHOL-HDL RATIO NORM SEE BELOW Normal [facility] Comment on above: Result Comment: 3.3 - 4.4 LOW RISK 4.4 - 7.1 AVERAGE RISK 7.1 - 11.0 MODERATE RISK >11.0 HIGH RISK Performed By: #### D DAVIDSON, MG, PHOS, CMP, LIPID, URIC #### [facility] [address] [place] [address] Dr. Sarmad Patino Cholesterol [Mass/Vol] 155 mg/dL Normal <=200 [facility] Comment on above: Performed By: #### D DAVIDSON, MG, PHOS, CMP, LIPID, URIC #### [facility] [address] [address] [address] Sarmad Patino Cholesterol in HDL [Mass/Vol] 49 mg/dL Normal 40-60 [facility] Comment on above: Performed By: #### D DAVIDSON, MG, PHOS, CMP, LIPID, URIC #### [facility] [address] [address] [address] Sarmad Patino Cholesterol in LDL [Mass/Vol] 73.8 mg/dL Normal [facility] Comment on above: Performed By: #### D DAVIDSON, MG, PHOS, CMP, LIPID, URIC #### [facility] [address] [address] [address] Sarmad Patino Cholesterol.total/Cho lesterol in HDL [Mass ratio] 3.2 {ratio} Normal [facility] Comment on above: Performed By: #### D DAVIDSON, MG, PHOS, CMP, LIPID, URIC #### [facility] [address] [address] [address] Sarmad Patino HDL NORMAL > or = 60 mg/dl - LO W CARDIOVASCULAR RISK <40 mg/dl - HIGH CARDIOVASCULAR RISK Normal [facility] Comment on above: Performed By: #### D DAVIDSON, MG, PHOS, CMP, LIPID, URIC #### [facility] [address] [address] [address] Sarmad Patino LDL CALC NORMAL SEE BELOW Normal [facility] Comment on above: Result Comment: <100 mg/dl OPTIMAL 100 - 129 mg/dl NEAR OR ABOVE OPTIMAL 130 - 159 mg/dl BORDERLINE HIGH 160 - 189 mg/dl HIGH >190 mg/dl VERY HIGH Performed By: #### D DAVIDSON, MG, PHOS, CMP, LIPID, URIC #### [facility] [address] [address] [address] Sarmad Patino Triglyceride [Mass/Vol] 161 mg/dL Critically high <=150 [facility] Comment on above: Performed By: #### D DAVIDSON, MG, PHOS, CMP, LIPID, URIC #### [facility] [address] [address] [address] Sarmad Patino VLDL CALC 32.2 mg/dL Normal [facility] Comment on above: Performed By: #### D DAVIDSON, MG, PHOS, CMP, LIPID, URIC #### [facility] [address] [address] [address] Sarmad Patino MAGNESIUMon 10-08-2021 Magnesium [Mass/Vol] 1.6 mg/dL Critically low 1.8-2.4 [facility] Comment on above: Performed By: #### U JUVE, LIPID, MG, CMP, DBIL, PHOS #### [facility] [address] [address] [address] Sarmad Patino PHOSPHORUSon 10-08-2021 Phosphate [Mass/Vol] 3.5 mg/dL Normal 2.6-4.7 [facility] Comment on above: Performed By: #### U JUVE, LIPID, MG, CMP, DBIL, PHOS #### [facility] [address] [place] [address] Dr. Sarmad Patino PROF 14(COMP METB)on 022 Albumin [Mass/Vol] 3.6 g/dL Normal 3.4-5.0 [facility] Comment on above: Performed By: #### D DAVIDSON, MG, PHOS, CMP, LIPID, URIC #### [facility] [address] [place] [address] Dr. Sarmad Patino Albumin/Globulin [Mass ratio] 0.9 {ratio} Normal [facility] Comment on above: Performed By: #### D DAVIDSON, MG, PHOS, CMP, LIPID, URIC #### [facility] [address] [place] [address] Dr. Sarmad Patino ALP [Catalytic activity/Vol] 150 U/L Critically high 46-116 [facility] Comment on above: Performed By: #### D DAVIDSON, MG, PHOS, CMP, LIPID, URIC #### [facility] [address] [place] [address] Dr. Sarmad Patino ALT [Catalytic activity/Vol] 21 U/L Normal 14-59 [facility] Comment on above: Performed By: #### D DAVIDSON, MG, PHOS, CMP, LIPID, URIC #### [facility] [address] [place] [address] Dr. Sarmad Patino Anion gap [Moles/Vol] 14.0 mmol/L Normal Th e [facility] Comment on above: Performed By: #### D DAVIDSON, MG, PHOS, CMP, LIPID, URIC #### [facility] [address] [place] [address] Dr. Sarmad Patino AST [Catalytic activity/Vol] 13 U/L Critically low 15-37 [facility] Comment on above: Performed By: #### D ADVIDSON, MG, PHOS, CMP, LIPID, URIC #### [facility] [address] [address] [address] Sarmad Patino Bilirubin [Mass/Vol] 0.5 mg/dL Normal 0.2-1.0 [facility] Comment on above: Performed By: #### D DAVIDSON, MG, PHOS, CMP, LIPID, URIC #### [facility] [address] [place] [address] Dr. Sarmad Patino Calcium [Mass/Vol] 9.8 mg/dL Normal 8.5-10.1 [facility] Comment on above: Performed By: #### D DAVIDSON, MG, PHOS, CMP, LIPID, URIC #### [facility] [address] [place] [address] Dr. Sarmad Patino Chloride [Moles/Vol] 105 mmol/L Normal 98-107 [facility] Comment on above: Performed By: #### D DAVIDSON, MG, PHOS, CMP, LIPID, URIC #### [facility] [address] [place] [address] Dr. Sarmad Patino CO2 [Moles/Vol] 25.9 mmol/L Normal 21.0-32.0 [facility] Comment on above: Performed By: #### D DAVIDSON, MG, PHOS, CMP, LIPID, URIC #### [facility] [address] [place] [address] Dr. Sarmad Patino Creatinine [Mass/Vol] 0.81 mg/dL Normal 0.55-1.02 [facility] Comment on above: Performed By: #### D DAVIDSON, MG, PHOS, CMP, LIPID, URIC #### [facility] [address] [address] [address] Sarmad Patino EGFR-AF MALTESE >60 Normal >=60 [facility] Comment on above: Performed By: #### D DAVIDSON, MG, PHOS, CMP, LIPID, URIC #### [facility] [address] [address] [address] Sarmad Patino EGFR-NON AF MALTESE >60 Normal >=60 [facility] Comment on above: Performed By: #### D DAVIDSON, MG, PHOS, CMP, LIPID, URIC #### [facility] [address] [address] [address] Sarmad Patino Globulin (S) [Mass/Vol] 3.8 g/dL Normal [facility] Comment on above: Performed By: #### D DAVIDSON, MG, PHOS, CMP, LIPID, URIC #### [facility] [address] [address] [address] Sarmad Patino Glucose [Mass/Vol] 101 mg/dL Normal 74-106 [facility] Comment on above: Performed By: #### D DAVIDSON, MG, PHOS, CMP, LIPID, URIC #### [facility] [address] [address] [address] Sarmad Patino Potassium [Moles/Vol] 3.9 mmol/L Normal 3.5-5.1 [facility] Comment on above: Performed By: #### D DAVIDSON, MG, PHOS, CMP, LIPID, URIC #### [facility] [address] [address] [address] Sarmad Patino Protein [Mass/Vol] 7.4 g/dL Normal 6.4-8.2 [facility] Comment on above: Performed By: #### D DAVIDSON, MG, PHOS, CMP, LIPID, URIC #### [facility] [address] [place] [address] Dr. Sarmad Patino Sodium [Moles/Vol] 141 mmol/L Normal 136-145 [facility] Comment on above: Performed By: #### D DAVIDSON, MG, PHOS, CMP, LIPID, URIC #### [facility] [address] [address] [address] Sarmad Patino Urea nitrogen [Mass/Vol] 18.0 mg/dL Normal 7.0-18.0 [facility] Comment on above: Performed By: #### D DAVIDSON, MG, PHOS, CMP, LIPID, URIC #### [facility] [address] [address] [address] Sarmad Patino Urea nitrogen/Creatinine [Mass ratio] 22.2 mg/mg Normal [facility] Comment on above: Performed By: #### D DAVIDSON, MG, PHOS, CMP, LIPID, URIC #### [facility] [address] [address] [address] Sarmad Patino URIC ACID SERUMon 10-08-2021 Urate [Mass/Vol] 4.7 mg/dL Normal 2.6-6.0 [facility] Comment on above: Performed By: #### D DAVIDSON, MG, PHOS, CMP, LIPID, URIC #### [facility] [address] [place] [address] Dr. Sarmad Patino EVEROLIMU, WHOLE BLOODon EVEROLIMUS 8.0 ng/mL Normal 3.0-8.0 [facility] Comment on above: Result Comment: Perf ormed by LC-MS/MS technology. Performed By: #### U JUVE, LIPID, MG, CMP, DBIL, PHOS #### [facility] [address] [address] [address] Sarmad Patino FK506 (TACROLIMUS) WHOLE BLO ODon 09-14-2021 Tacrolimus (FK506), Blood 9.3 ng/mL Normal 2.0-20.0 [facility] Comment on above: Result Comment: Trou gh (immediately following transplant) 15.0 . Trough (steady state, 2 weeks or more after transplant): 3.0 - 8.0 . Performed by LC-MS/MS technology. Performed By: #### U JUVE, LIPID, MG, CMP, DBIL, PHOS #### [facility] [address] [address] [address] Sarmad Patino BK VIRUS PCR QUANTon 022 BKV DNA QUANT PCR PLASMA Negative Normal Negative [facility] Comment on above: Result Comment: No B K DNA detected. . The linear range of the assay is 22 - 100,000,000 IU/mL. Performed By: #### D DAVIDSON, MG, PHOS, CMP, LIPID, URIC #### [facility] [address] [place] [address] Dr. Sarmad Patino Log10 BKV DNA Plasma Normal [facility] Comment on above: Performed By: #### D DAVIDSON, MG, PHOS, CMP, LIPID, URIC #### [facility] [address] [place] [address] Dr. Sarmad Patino BILIRUBIN CONJUGATED (DIRECT )on 09-10-2021 BILI, CONJUGATED 0.1 mg/dL Normal 0.0-0.2 [facility] Comment on above: Performed By: #### D DAVIDSON, MG, PHOS, CMP, LIPID, URIC #### [facility] [address] [place] [address] Dr. Sarmad Patino CBC AUTO DIFFon 09-10-2021 BASO # 0.0 103/ul Normal 0.0-0.1 [facility] Comment on above: Performed By: #### D DAVIDSON, MG, PHOS, CMP, LIPID, URIC #### [facility] [address] [place] [address] Dr. Sarmad Patino Basophils/100 WBC (Bld) 0.1 % Critically low 0.2-2.0 [facility] Comment on above: Performed By: #### D DAVIDSON, MG, PHOS, CMP, LIPID, URIC #### [facility] [address] [place] [address] Dr. Sarmad Patino EO # 0.2 103/ul Normal 0.0-0.7 [facility] Comment on above: Performed By: #### D DAVIDSON, MG, PHOS, CMP, LIPID, URIC #### [facility] [address] [place] [address] Dr. Sarmad Patino Eosinophils/100 WBC (Bld) 2.3 % Normal 0.9-7.0 [facility] Comment on above: Performed By: #### D DAVIDSON, MG, PHOS, CMP, LIPID, URIC #### [facility] [address] [place] [address] Dr. Sarmad Patino Erythrocyte distribution width (RBC) [Ratio] 13.6 % Normal 11.0-15.0 [facility] Comment on above: Performed By: #### D DAVIDSON, MG, PHOS, CMP, LIPID, URIC #### [facility] [address] [place] [address] Dr. Sarmad Patino Hematocrit (Bld) [Volume fraction] 45.1 % Normal 36.0-48.0 [facility] Comment on above: Performed By: #### D DAVIDSON, MG, PHOS, CMP, LIPID, URIC #### [facility] [address] [place] [address] Dr. Sarmad Patino Hemoglobin (Bld) [Mass/Vol] 14.7 g/dL Normal 12.0-16.0 [facility] Comment on above: Performed By: #### D DAVIDSON, MG, PHOS, CMP, LIPID, URIC #### [facility] [address] [place] [address] Dr. Sarmad Patino IG # 0.03 10e3/ul Normal 0.00-0.03 [facility] Comment on above: Performed By: #### D DAVIDSON, MG, PHOS, CMP, LIPID, URIC #### [facility] [address] [place] [address] Dr. Sarmad Patino IG % 0.4 % Normal 0.0-0.5 [facility] Comment on above: Performed By: #### D DAVIDSON, MG, PHOS, CMP, LIPID, URIC #### [facility] [address] [place] [address] Dr. Sarmad Patino LYMPH # 1.3 103/ul Normal 1.2-3.8 [facility] Comment on above: Performed By: #### D DAVIDSON, MG, PHOS, CMP, LIPID, URIC #### [facility] [address] [place] [address] Dr. Sarmad Patino Lymphocytes/100 WBC (Bld) 18.9 % Critically low 20.5-60.0 [facility] Comment on above: Performed By: #### D DAVIDSON, MG, PHOS, CMP, LIPID, URIC #### [facility] [address] [address] [address] Sarmad Patino MANUAL DIFF REQ NO Normal [facility] Comment on above: Performed By: #### D DAVIDSON, MG, PHOS, CMP, LIPID, URIC #### [facility] [address] [place] [address] Dr. Sarmad Patino MCH (RBC) [Entitic mass] 29.0 pg Normal 26.7-34.0 [facility] Comment on above: Performed By: #### D DAVIDSON, MG, PHOS, CMP, LIPID, URIC #### [facility] [address] [place] [address] Dr. Sarmad Patino MCHC (RBC) [Mass/Vol] 32.6 g/dL Normal 29.9-35.2 [facility] Comment on above: Performed By: #### D DAVIDSON, MG, PHOS, CMP, LIPID, URIC #### [facility] [address] [place] [address] Dr. Sarmad Patino MCV (RBC) [Entitic vol] 89.0 fL Normal 81.0-99.0 [facility] Comment on above: Performed By: #### D DAVIDSON, MG, PHOS, CMP, LIPID, URIC #### [facility] [address] [place] [address] Dr. Sarmad Patino MONO # 0.8 103/ul Normal 0.3-0.8 [facility] Comment on above: Performed By: #### D DAVIDSON, MG, PHOS, CMP, LIPID, URIC #### [facility] [address] [place] [address] Dr. Sarmad Patino Monocytes/100 WBC (Bld) 11.9 % Normal 1.7-12.0 [facility] Comment on above: Performed By: #### D DAVIDSON, MG, PHOS, CMP, LIPID, URIC #### [facility] [address] [place] [address] Dr. Sarmad Patino NEUT # 4.6 103/ul Normal 1.4-6.5 [facility] Comment on above: Performed By: #### D DAVIDSON, MG, PHOS, CMP, LIPID, URIC #### [facility] [address] [address] [address] Sarmad Patino Neutrophils/100 WBC (Bld) 66.4 % Normal 43.0-75.0 [facility] Comment on above: Performed By: #### D DAVIDSON, MG, PHOS, CMP, LIPID, URIC #### [facility] [address] [place] [address] Dr. Sarmad Patino Platelet mean volume (Bld) [Entitic vol] 10.6 fL Normal 9.5-13.5 [facility] Comment on above: Performed By: #### D DAVIDSON, MG, PHOS, CMP, LIPID, URIC #### [facility] [address] [place] [address] Dr. Sarmad Patino PLT 233 103/ul Normal 150-450 [facility] Comment on above: Performed By: #### D DAVIDSON, MG, PHOS, CMP, LIPID, URIC #### [facility] [address] [place] [address] Dr. Sarmad Patino RBC 5.07 106/ul Normal 4.20-5.40 [facility] Comment on above: Performed By: #### D DAVIDSON, MG, PHOS, CMP, LIPID, URIC #### [facility] [address] [place] [address] Dr. Sarmad Patino WBC 6.9 103/ul Normal 4.0-11.0 [facility] Comment on above: Performed By: #### D DAVIDSON, MG, PHOS, CMP, LIPID, URIC #### [facility] [address] [place] [address] Dr. Sarmad Patino GLYCOHEMOGLOBIN A1Con 2021 ADA RECOMMENDATION SEE BELOW Normal [facility] Comment on above: Result Comment: ADA RECOMMENDED LIMIT 4.0 - 6.0 ADA THERAPEUTIC TARGET < 7.0 ACTION SUGGESTED > 7.0 Performed By: #### D DAVIDSON, MG, PHOS, CMP, LIPID, URIC #### [facility] [address] [place] [address] Dr. Sarmad Patino Glucose [Mass/Vol] 120 mg/dL Normal [facility] Comment on above: Performed By: #### D DAVIDSON, MG, PHOS, CMP, LIPID, URIC #### [facility] [address] [address] [address] Sarmad Patino HbA1c (Bld) [Mass fraction] 5.8 % Normal 4.5-6.2 [facility] Comment on above: Performed By: #### D DAVIDSON, MG, PHOS, CMP, LIPID, URIC #### [facility] [address] [address] [address] Sarmad Patino LIPID PROFILEon 09-10-2021 CHOL-HDL RATIO NORM SEE BELOW Normal [facility] Comment on above: Result Comment: 3.3 - 4.4 LOW RISK 4.4 - 7.1 AVERAGE RISK 7.1 - 11.0 MODERATE RISK >11.0 HIGH RISK Performed By: #### D DAVIDSON, MG, PHOS, CMP, LIPID, URIC #### [facility] [address] [address] [address] Sarmad Patino Cholesterol [Mass/Vol] 150 mg/dL Normal <=200 [facility] Comment on above: Performed By: #### D DAVIDSON, MG, PHOS, CMP, LIPID, URIC #### [facility] [address] [address] [address] Sarmad Patino Cholesterol in HDL [Mass/Vol] 47 mg/dL Normal 40-60 [facility] Comment on above: Performed By: #### D DAVIDSON, MG, PHOS, CMP, LIPID, URIC #### [facility] [address] [address] [address] Sarmad Patino Cholesterol in LDL [Mass/Vol] 78.4 mg/dL Normal [facility] Comment on above: Performed By: #### D DAVIDSON, MG, PHOS, CMP, LIPID, URIC #### [facility] [address] [place] [address] Dr. Sarmad Patino Cholesterol.total/Cho lesterol in HDL [Mass ratio] 3.2 {ratio} Normal [facility] Comment on above: Performed By: #### D DAVIDSON, MG, PHOS, CMP, LIPID, URIC #### [facility] [address] [address] [address] Sarmad Patino HDL NORMAL > or = 60 mg/dl - LO W CARDIOVASCULAR RISK <40 mg/dl - HIGH CARDIOVASCULAR RISK Normal [facility] Comment on above: Performed By: #### D DAVIDSON, MG, PHOS, CMP, LIPID, URIC #### [facility] [address] [address] [address] Sarmad Patino LDL CALC NORMAL SEE BELOW Normal [facility] Comment on above: Result Comment: <100 mg/dl OPTIMAL 100 - 129 mg/dl NEAR OR ABOVE OPTIMAL 130 - 159 mg/dl BORDERLINE HIGH 160 - 189 mg/dl HIGH >190 mg/dl VERY HIGH Performed By: #### D DAVIDSON, MG, PHOS, CMP, LIPID, URIC #### [facility] [address] [address] [address] Sarmad Patino Triglyceride [Mass/Vol] 123 mg/dL Normal <=150 [facility] Comment on above: Performed By: #### D DAVIDSON, MG, PHOS, CMP, LIPID, URIC #### [facility] [address] [address] [address] Sarmad Patino VLDL CALC 24.6 mg/dL Normal [facility] Comment on above: Performed By: #### D DAVIDSON, MG, PHOS, CMP, LIPID, URIC #### [facility] [address] [address] [address] Sarmad Patino MAGNESIUMon 09-10-2021 Magnesium [Mass/Vol] 1.5 mg/dL Critically low 1.8-2.4 [facility] Comment on above: Performed By: #### D DAVIDSON, MG, PHOS, CMP, LIPID, URIC #### [facility] [address] [address] [address] Sarmad Patino PHOSPHORUSon 09-10-2021 Phosphate [Mass/Vol] 3.8 mg/dL Normal 2.6-4.7 [facility] Comment on above: Performed By: #### D DAVIDSON, MG, PHOS, CMP, LIPID, URIC #### [facility] [address] [address] [address] Sarmad Patino PROF 14(COMP METB)on 022 Albumin [Mass/Vol] 3.4 g/dL Normal 3.4-5.0 [facility] Comment on above: Performed By: #### D DAVIDSON, MG, PHOS, CMP, LIPID, URIC #### [facility] [address] [place] [address] Dr. Sarmad Patino Albumin/Globulin [Mass ratio] 0.9 {ratio} Normal [facility] Comment on above: Performed By: #### D DAVIDSON, MG, PHOS, CMP, LIPID, URIC #### [facility] [address] [place] [address] Dr. Sarmad Ptaino ALP [Catalytic activity/Vol] 143 U/L Critically high 46-116 [facility] Comment on above: Performed By: #### D DAVIDSON, MG, PHOS, CMP, LIPID, URIC #### [facility] [address] [place] [address] Dr. Sarmad Patino ALT [Catalytic activity/Vol] 19 U/L Normal 14-59 [facility] Comment on above: Performed By: #### D DAVIDSON, MG, PHOS, CMP, LIPID, URIC #### [facility] [address] [place] [address] Dr. Sarmad Patino Anion gap [Moles/Vol] 13.4 mmol/L Normal [facility] Comment on above: Performed By: #### D DAVIDSON, MG, PHOS, CMP, LIPID, URIC #### [facility] [address] [place] [address] Dr. Sarmad Patino AST [Catalytic activity/Vol] 24 U/L Normal 15-37 [facility] Comment on above: Performed By: #### D DAVIDSON, MG, PHOS, CMP, LIPID, URIC #### [facility] [address] [place] [address] Dr. Sarmad Patino Bilirubin [Mass/Vol] 0.4 mg/dL Normal 0.2-1.0 [facility] Comment on above: Performed By: #### D DAVIDSON, MG, PHOS, CMP, LIPID, URIC #### [facility] [address] [address] [address] Sarmad Patino Calcium [Mass/Vol] 9.3 mg/dL Normal 8.5-10.1 [facility] Comment on above: Performed By: #### D DAVIDSON, MG, PHOS, CMP, LIPID, URIC #### [facility] [address] [address] [address] Sarmad Patino Chloride [Moles/Vol] 106 mmol/L Normal 98-107 [facility] Comment on above: Performed By: #### D DAVIDSON, MG, PHOS, CMP, LIPID, URIC #### [facility] [address] [place] [address] Dr. Sarmad Patino CO2 [Moles/Vol] 25.5 mmol/L Normal 21.0-32.0 [facility] Comment on above: Performed By: #### D DAVIDSON, MG, PHOS, CMP, LIPID, URIC #### [facility] [address] [place] [address] Dr. Sarmad Patino Creatinine [Mass/Vol] 0.85 mg/dL Normal 0.55-1.02 [facility] Comment on above: Performed By: #### D DAVIDSON, MG, PHOS, CMP, LIPID, URIC #### [facility] [address] [place] [address] Dr. Sarmad Patino EGFR-AF MALTESE >60 Normal >=60 [facility] Comment on above: Performed By: #### D DAVIDSON, MG, PHOS, CMP, LIPID, URIC #### [facility] [address] [place] [address] Dr. Sarmad Patino EGFR-NON AF MALTESE >60 Normal >=60 [facility] Comment on above: Performed By: #### D DAVIDSON, MG, PHOS, CMP, LIPID, URIC #### [facility] [address] [place] [address] Dr. Sarmad Patino Globulin (S) [Mass/Vol] 3.8 g/dL Normal [facility] Comment on above: Performed By: #### D DAVIDSON, MG, PHOS, CMP, LIPID, URIC #### [facility] [address] [place] [address] Dr. Sarmad Patino Glucose [Mass/Vol] 100 mg/dL Normal 74-106 [facility] Comment on above: Performed By: #### D DAVIDSON, MG, PHOS, CMP, LIPID, URIC #### [facility] [address] [place] [address] Dr. Sarmad Patino Potassium [Moles/Vol] 3.9 mmol/L Normal 3.5-5.1 [facility] Comment on above: Performed By: #### D DAVIDSON, MG, PHOS, CMP, LIPID, URIC #### [facility] [address] [address] [address] Sarmad Patino Protein [Mass/Vol] 7.2 g/dL Normal 6.4-8.2 [facility] Comment on above: Performed By: #### D DAVIDSON, MG, PHOS, CMP, LIPID, URIC #### [facility] [address] [place] [address] Dr. Sarmad Patino Sodium [Moles/Vol] 141 mmol/L Normal 136-145 [facility] Comment on above: Performed By: #### D DAVIDSON, MG, PHOS, CMP, LIPID, URIC #### [facility] [address] [address] [address] Sarmad Patino Urea nitrogen [Mass/Vol] 16.0 mg/dL Normal 7.0-18.0 [facility] Comment on above: Performed By: #### D DAVIDSON, MG, PHOS, CMP, LIPID, URIC #### [facility] [address] [place] [address] Dr. Sarmad Patino Urea nitrogen/Creatinine [Mass ratio] 18.8 mg/mg Normal [facility] Comment on above: Performed By: #### D DAVIDSON, MG, PHOS, CMP, LIPID, URIC #### [facility] [address] [place] [address] Dr. Sarmad Patino URIC ACID SERUMon 09-10-2021 Urate [Mass/Vol] 4.8 mg/dL Normal 2.6-6.0 [facility] Comment on above: Performed By: #### D DAVIDSON, MG, PHOS, CMP, LIPID, URIC #### [facility] [address] [address] [address] Sarmad Patino Urinalysis - AUTOMATEDon Appearance (U) cloudy [employer] Other Bilirubin Ql (U) Negative [employer] Other Color (U) pale yellow [employer] Other Glucose Ql (U) Negative [employer] Other Hemoglobin Ql (U) moderate [employer] Other Ketones Ql (U) Negative [employer] Other Leukocyte esterase Test strip Ql (U) moderate [employer] Other Nitrite Ql (U) Negative [employer] Other pH (U) 7.0 [pH] [employer] Other Protein Ql (U) Negative [employer] Other Specific gravity (U) [Rel density] 1.010 [employer] Other Urobilinogen (U) [Mass/Vol] 0.2 mg/dL [employer] Other Urinalysis - AUTOMATED [employer] Other Urine Cultureon 08-14-2021 Urine Culture 100,000 [employer] Other Urine Culture <16 Susceptible [employer] Other Urine Culture >16 Resistant [employer] Other Urine Culture <4 Susceptible [employer] Other Urine Culture <2 Susceptible [employer] Other Urine Culture <1 Susceptible [employer] Other Urine Culture <0.5 Susceptible [employer] Other Urine Culture <32 Susceptible [employer] Other Urine Culture <2/38 Susceptible [employer] Other Bacteria identified Cx Nom (U) Reason for Exam Dysuria Urine ORGANISM: Klebsiella pneumoniae (O:KLEPNE) [place] Count 100,000 Aerobic SHYLA Charge (NUC86) ---- [...] RESISTANT TO ALL B-LACTAM DRUGS. PERFORMED BY: [place] [address] PATHOLOGIST PV DESIGN AND INSTALLATION TECHNICIAN LOVELY COLE M.D. Normal [facility] Comment on above: Performed By: #### C UU #### [place] [address] [place] *URINE CULTUREon 12-31-2017 Bacteria identified in Urine by Culture Clinical Report: (D) Specimen: URINE Collected: 12/31/2017 13:40 Status: Final Last Updated: 01/04/2018 12:38 ISO (Final) Diphtheroids >100,000 Cfu/Ml 2 Morphologies ISO (Final) Aerococcus urinae 50,000 - 100,000 Cfu/mL Result changed by [email or web address] on 01/04/2018 12:38. The previous result was: ISO (Prelim) Normal [facility] Comment on above: Performed By: #### 4 1000, [id number], [id number], [id number], [id number], [id number] ####[facility] CBC W/DIFFon 12-25-2017 ABS BASOPHILS 0.0 10*3/uL Normal 0.0-0.2 [facility] Comment on above: Performed By: #### 5 0103 ####[facility] ABS IMM GRANS 0.0 10*3/uL Normal 0.0-0.2 [facility] Comment on above: Performed By: #### 5 0103 ####[facility] ABS NEUTROPHILS 5.0 10*3/uL Normal 1.6-7.6 [facility] Comment on above: Performed By: #### 5 0103 ####[facility] Basophils Auto #/vol (Bld) 0.1 % Normal 0.0-1.0 [facility] Comment on above: Performed By: #### 5 0103 ####[facility] Eosinophils Auto #/vol (Bld) 0.1 10*3/uL Normal 0.0-0.5 [facility] Comment on above: Performed By: #### 5 0103 ####[facility] Eosinophils/100 WBC Auto (Bld) 1.6 % Normal 0.0-6.0 [facility] Healthcare Comment on above: Performed By: #### 5 0103 ####[facility]3000 [facility].[address] Erythrocyte distribution width Auto Ratio (RBC) 14.6 % Normal 11.5-15.0 [facility] Comment on above: Performed By: #### 5 0103 ####[facility] Hematocrit Auto Volume Fraction (Bld) 44.9 % Normal 36.0-45.0 The [facility] Comment on above: Performed By: #### 5 3 ####[facility] Hemoglobin mass conc (Bld) 14.9 g/dL Normal 12.0-15.0 [facility] Comment on above: Performed By: #### 5 3 ####[facility] IMMATURE GRANS 0.4 % Normal 0.0-1.0 The [facility] Comment on above: Performed By: #### 5 3 ####[facility]3000 [facility].[address] Lymphocytes Auto #/vol (Bld) 1.0 10*3/uL Low 1.2-4.0 [facility] Comment on above: Performed By: #### 5 0103 ####[facility] Lymphocytes/100 WBC Auto (Bld) 14.9 % Low 20.0-45.0 [facility] Comment on above: Performed By: #### 3 ####[facility] MCH Auto Entitic mass (RBC) 28.8 pg Normal 27.0-33.0 [facility] Comment on above: Performed By: #### 5 0103 ####[facility]3000 [facility].[address] MCHC Auto mass conc (RBC) 33.2 g/dL Normal 32.0-35.0 [facility] Comment on above: Performed By: #### 5 0103 ####[facility]3000 [facility].[address] MCV Auto Entitic volume (RBC) 86.7 fL Normal 82.0-98.0 [facility] Comment on above: Performed By: #### 3 ####[facility] Monocytes Auto #/vol (Bld) 0.7 10*3/uL Normal 0.1-1.0 [facility] Comment on above: Performed By: #### 3 ####[facility] MONOS 10.6 % Normal 5.0-12.0 [facility] Comment on above: Performed By: #### 5 3 ####[facility] Neutrophils/100 WBC Auto (Bld) 72.4 % High 40.0-72.0 [facility] Comment on above: Performed By: #### 3 ####[facility] Nucleated RBC/100 WBC Ratio (Bld) 0 % Normal 0-0 [facility] Comment on above: Performed By: #### 3 ####[facility]3000 [facility].[address] PLAT CNT 203 10*3/uL Normal 150-400 The [facility] Comment on above: Performed By: #### 5 0103 ####[facility] RBC Auto #/vol (Bld) 5.18 10*6/uL High 3.80-5.00 Th e [facility] Comment on above: Performed By: #### 5 0103 ####[facility] WBC Auto #/vol (Bld) 6.90 10*3/uL Normal 4.00-10.60 Th [facility] Comment on above: Performed By: #### 5 0103 ####[facility] COMP METABOLIC PANELon 12-25 Albumin mass conc 4.3 g/dL Normal 3.5-5.7 The [facility] Comment on above: Performed By: #### 4 1000, 19062, 70640, 20726, 76462, 98788 ####[facility]3000 [facility].[address] ALKALINE PHOSPH 118 IU/L High 34-104 The [facility] Comment on above: Performed By: #### 4 1000, 29166, 07457, 93282, 65196, 55981 ####[facility] ALT enzyme act/vol 11 U/L Normal 7-52 The [facility] Comment on above: Performed By: #### 4 1000, 19276, 22740, 60373, 59989, 66773 ####[facility] AST enzyme act/vol 17 U/L Normal 13-39 The [facility] Comment on above: Performed By: #### 4 1000, 37810, 12703, 16455, 71600, 82700 ####[facility] [place] [address], [place] Bilirubin mass conc 0.4 mg/dL Normal 0.3-1.0 The [facility] Comment on above: Performed By: #### 4 1000, 37919, 96461, 86211, 27694, 92445 ####[facility] [place] [address], [place] Calcium mass conc 9.8 mg/dL Normal 8.6-10.3 The [facility] Comment on above: Performed By: #### 4 1000, 49697, 04681, 06889, 91358, 24799 ####[facility] [place] [address], [place] Chloride molar conc 104 mmol/L Normal 98-107 The [facility] Comment on above: Performed By: #### 4 1000, 52847, 42275, 43433, 19204, 18358 ####[facility] [place] [address], [place] CO2 molar conc 27 mmol/L Normal 21-31 The [facility] Comment on above: Performed By: #### 4 1000, 98039, 56007, 65590, 66868, 03123 ####[facility] [place] [address], [place] Creatinine mass conc 0.76 mg/dL Normal 0.60-1.20 [facility] Comment on above: Performed By: #### 4 1000, 54679, 75034, 44038, 50053, 94084 ####[facility] [place] [address], [place] GFR/1.73 sq M predicted among blacks MDRD vol rate/area (S/P/Bld) mL/min/{1.73_m2} Normal >60 The [facility] Comment on above: Performed By: #### 4 1000, 74113, 38621, 28642, 78637, 98149 ####[facility] [place] [address], [facility] GFR/1.73 sq M predicted among non-blacks MDRD vol rate/area (S/P/Bld) mL/min/{1.73_m2} Normal >60 The [facility] Comment on above: Performed By: #### 4 1000, 66438, 61914, 74651, 76523, 76863 ####[facility] [place] [address], [facility] Glucose mass conc 94 mg/dL Normal 70-100 The [facility] Comment on above: Performed By: #### 4 1000, 13209, 65984, 38729, 99881, 15250 ####[facility] [place] [address], [facility] Potassium molar conc 3.9 mmol/L Normal 3.5-5.1 [facility] Comment on above: Performed By: #### 4 1000, 34614, 53675, 85280, 77826, 80409 ####[facility] [place] [address], [facility] Protein mass conc 7.2 g/dL Normal 6.0-8.3 The [facility] Comment on above: Performed By: #### 4 1000, 29238, 73146, 30772, 65184, 09480 ####[facility] [place] [address], [place] Sodium molar conc 140 mmol/L Normal 136-145 The [facility] Comment on above: Performed By: #### 4 1000, 68222, 05317, 39460, 35580, 79180 ####[facility] [place] [address], [place] Urea nitrogen mass conc 15 mg/dL Normal 7-25 [facility] Comment on above: Performed By: #### 4 1000, 80232, 14844, 60992, 50251, 69832 ####[facility] DIRECT BILIon 12-25-2017 Bilirubin.direct mass conc 0.1 mg/dL Normal 0.0-0.2 [facility] Comment on above: Performed By: #### 4 1000, 33300, 84800, 46943, 10971, 62046 ####[facility] EVEROLIMUS 10360rz 8 EVEROLIMUS 4.7 ng/mL Normal [facility] Comment on above: Result Comment: Ther apeutic [...] the transplantcenter.Test developed and characteristics determined by [facility]. See Compliance Statement B: [employer] by [employer],[address] [place] [address] [id number] pus.[employer], Leonid Antonio MD - Lab. Director LIPID PROFILEon 12-25-2017 Cholesterol in HDL mass conc 51 mg/dL Normal 23-92 [facility] Comment on above: Result Comment: Slig ht variation in normal range could be due to gender and/or age.HDL CHOLESTEROL REFERENCE RANGE:20 years and older Cardiovascular Risk> or =60 mg/dL Kcduulzdd43 TO 59 mg/dL Low Risk<40 mg/dL High Risk Performed By: #### 4 5506, 86445, 88576, 87673, 02961, 09124 ####[facility] [place] [address], [facility] Cholesterol in LDL mass conc 58 mg/dL Normal 0-130 [facility] Comment on above: Result Comment: LDL IS A CALCULATIONLDL IS ONLY VALID IF THE TRIG IS LESS THAN 400. Performed By: #### 4 5506, 01449, 90918, 38450, 44148, 52481 ####[facility] [place] [address], [facility] Cholesterol mass conc 122 mg/dL Normal 120-200 [facility] Comment on above: Result Comment: CHOL ESTEROL REFERENCE RANGE:20 YEARS AND OLDER CARDIOVASCULAR RISKLess than 200 mg/dl Low Qbjc175 to 239 mg/dl Borderline Vfzh153 mg/dl and greater High Risk Performed By: #### 4 5506, 03164, 59264, 40132, 48244, 32538 ####[facility] [place] [address], [place] Cholesterol.total/Cho lesterol in HDL mass ratio 2.4 {ratio} Normal .0-4.5 [facility] Comment on above: Performed By: #### 4 5506, 03886, 49870, 51016, 83425, 57766 ####[facility] [place] [address], [place] NON-HDL CHOLESTEROL 71 mg/dL Normal [facility] Comment on above: Performed By: #### 4 5506, 68164, 26918, 22801, 18662, 35356 ####[facility] [place] [address], [place] Triglyceride mass conc 65 mg/dL Normal 40-149 [facility] Comment on above: Result Comment: TRIG LYCERIDE REFERENCE RANGE:20 YEARS AND OLDER CARDIOVASCULAR RISKLESS THAN 150 mg/dl LOW [id number] TO 199 mg/dl BORDERLINE HSOC046 mg/dl AND GREATER HIGH RISK Performed By: #### 4 5506, 64441, 85476, 13533, 45518, 45881 ####[facility] VLDL CHOL 13 mg/dL Normal 0-40 [facility] Comment on above: Performed By: #### 4 5506, 00250, 38073, 21421, 28978, 57194 ####[facility]3000 [facility].[address] MAGNESIUM BLOODon 12-25-2017 Magnesium mass conc 1.8 mg/dL Low 1.9-2.7 The [facility] Comment on above: Performed By: #### 4 1000, 15727, 66113, 90436, 22860, 50155 ####[facility] PHOSPHORUS BLOODon 8 Phosphate mass conc 3.4 mg/dL Normal 2.5-5.0 The [facility] Comment on above: Performed By: #### 4 5506, 60922, 47462, 80047, 79308, 24131 ####[facility]3000 [facility].[address] TACROLIMUSon 12-25-2017 Tacrolimus mass conc (Bld) 6.4 ng/mL Normal 5.0-20.0 [facility] Comment on above: Result Comment: The [employer] Tacrolimus assay is a delayed one-step immunoassayfor the quantitative determination of tacrolimus in human whole bloodusing the chemiluminescent microparticle immunoassay (CMIA) technologywith flexible assay protocols, referred to as Chemiflex. Performed By: #### 4 1000, 85134, 39339, 20191, 04018, 52912 ####[facility]3000 [facility].[address] URIC ACID BLOODon 12-25-2017 Urate mass conc 4.7 mg/dL Normal 2.3-6.6 The [facility] Comment on above: Performed By: #### 4 5506, 53475, 42537, 01592, 63418, 94092 ####[facility]3000 [facility].[address] CBC W/DIFFon 10-30-2017 ABS BASOPHILS 0.0 10*3/uL Normal 0.0-0.2 The [facility] Comment on above: Performed By: #### 4 2047, 88332 ####[facility] ABS IMM GRANS 0.0 10*3/uL Normal 0.0-0.2 The [facility] Comment on above: Performed By: #### 4 0047, 07405 ####[facility] ABS NEUTROPHILS 4.9 10*3/uL Normal 1.6-7.6 The [facility] Comment on above: Performed By: #### 4 3947, 01318 ####[place] [address] [facility].[address] Basophils Auto #/vol (Bld) 0.1 % Normal 0.0-1.0 [facility] Comment on above: Performed By: #### 4 2647, 26991 ####[facility] Eosinophils Auto #/vol (Bld) 0.1 10*3/uL Normal 0.0-0.5 [facility] Comment on above: Performed By: #### 4 7747, 82288 ####[place] [address] [facility].[address] Eosinophils/100 WBC Auto (Bld) 1.4 % Normal 0.0-6.0 [facility] Comment on above: Performed By: #### 4 8019, 22933 ####[facility]3000 [facility].[address] Erythrocyte distribution width Auto Ratio (RBC) 14.6 % Normal 11.5-15.0 [facility] Comment on above: Performed By: #### 4 2059, 56963 ####[facility]3000 [facility].[address] Hematocrit Auto Volume Fraction (Bld) 46.8 % High 36.0-45.0 The [facility] Comment on above: Performed By: #### 4 2511, 61297 ####[address] Hemoglobin mass conc (Bld) 15.1 g/dL High 12.0-15.0 [facility] Comment on above: Performed By: #### 4 6017, 11230 ####[place] [address] IMMATURE GRANS 0.4 % Normal 0.0-1.0 The [facility] Comment on above: Performed By: #### 5 2542, 38879 ####[address] Lymphocytes Auto #/vol (Bld) 1.2 10*3/uL Normal 1.2-4.0 [facility] Comment on above: Performed By: #### 1 4546, 25252 ####[place] [address] [facility].[address] Lymphocytes/100 WBC Auto (Bld) 16.6 % Low 20.0-45.0 [facility] Comment on above: Performed By: #### 4 9524, 63324 ####[facility]3000 [facility].[address] MCH Auto Entitic mass (RBC) 29.0 pg Normal 27.0-33.0 [facility] Comment on above: Performed By: #### 4 2935, 01168 ####[facility]3000 [facility].[address] MCHC Auto mass conc (RBC) 32.3 g/dL Normal 32.0-35.0 [facility] Comment on above: Performed By: #### 4 9799, 19699 ####[facility]3000 [facility].[address] MCV Auto Entitic volume (RBC) 89.8 fL Normal 82.0-98.0 [facility] Comment on above: Performed By: #### 2 9873, 70469 ####[facility]3000 [facility].[address] Monocytes Auto #/vol (Bld) 0.8 10*3/uL Normal 0.1-1.0 [facility] Comment on above: Performed By: #### 0 8848, 54880 ####[facility]3000 [facility].[address] MONOS 11.9 % Normal 5.0-12.0 [facility] Comment on above: Performed By: #### 8 5160, 51397 ####[facility]3000 [facility].[address] Neutrophils/100 WBC Auto (Bld) 69.6 % Normal 40.0-72.0 [facility] Comment on above: Performed By: #### 9 2661, 51030 ####[facility]3000 [facility].[address] Nucleated RBC/100 WBC Ratio (Bld) 0 % Normal 0-0 [facility] Comment on above: Performed By: #### 0 6211, 03068 ####[facility]3000 [facility] [place] [address], [facility] PLAT CNT 200 10*3/uL Normal 150-400 The [facility] Comment on above: Performed By: #### 4 6447, 89455 ####[facility]3000 [facility] [place] [address], [facility] RBC Auto #/vol (Bld) 5.21 10*6/uL High 3.80-5.00 Th e [facility] Comment on above: Performed By: #### 4 6447, 82933 ####[facility]3000 [facility].[address] WBC Auto #/vol (Bld) 7.04 10*3/uL Normal 4.00-10.60 Th e [facility] Comment on above: Performed By: #### 4 6447, 77054 ####[facility]3000 [facility].[address] COMP METABOLIC PANELon 10-30 Albumin mass conc 4.1 g/dL Normal 3.5-5.7 [facility] Comment on above: Performed By: #### 4 6447, 12057 ####[facility]3000 [facility].[address] ALKALINE PHOSPH 114 IU/L High 34-104 The [facility] Comment on above: Performed By: #### 4 6447, 92664 ####[facility]3000 [facility].[address] ALT enzyme act/vol 16 U/L Normal 7-52 The [facility] Comment on above: Performed By: #### 4 6447, 07853 ####[facility] AST enzyme act/vol 18 U/L Normal 13-39 The [facility] Comment on above: Performed By: #### 4 6447, 84176 ####[facility] [place] [address], [place] Bilirubin mass conc 0.4 mg/dL Normal 0.3-1.0 [facility] Comment on above: Performed By: #### 4 1147, 50286 ####[facility] [place] [address], [place] Calcium mass conc 9.7 mg/dL Normal 8.6-10.3 [facility] Comment on above: Performed By: #### 4 7547, 18940 ####[facility] [place] [address], [place] Chloride molar conc 105 mmol/L Normal 98-107 The [facility] Comment on above: Performed By: #### 2 2847, 85103 ####[facility] [place] [address], [place] CO2 molar conc 28 mmol/L Normal 21-31 The [facility] Comment on above: Performed By: #### 0 5617, 90114 ####[facility] [place] [address], [place] Creatinine mass conc 0.82 mg/dL Normal 0.60-1.20 [facility] Comment on above: Performed By: #### 4 4647, 58735 ####[facility] [place] [address], [place] GFR/1.73 sq M predicted among blacks MDRD vol rate/area (S/P/Bld) mL/min/{1.73_m2} Normal >60 The [facility] Comment on above: Performed By: #### 4 6447, 87046 ####[facility] [place] [address], [place] GFR/1.73 sq M predicted among non-blacks MDRD vol rate/area (S/P/Bld) mL/min/{1.73_m2} Normal >60 The [facility] Comment on above: Performed By: #### 4 6447, 33576 ####[facility] [place] [address], [facility] Glucose mass conc 90 mg/dL Normal 70-100 The [facility] Comment on above: Performed By: #### 4 6447, 96839 ####[facility] [place] [address], [facility] Potassium molar conc 4.1 mmol/L Normal 3.5-5.1 [facility] Comment on above: Performed By: #### 4 6447, 06050 ####[facility] [place] [address], [facility] Protein mass conc 6.9 g/dL Normal 6.0-8.3 The [facility] Comment on above: Performed By: #### 4 9247, 88123 ####[facility] [place] [address], [facility] Sodium molar conc 138 mmol/L Normal 136-145 The [facility] Comment on above: Performed By: #### 4 6447, 14436 ####[facility] [place] [address], [facility] Urea nitrogen mass conc 16 mg/dL Normal 7-25 [facility] Comment on above: Performed By: #### 4 9947, 44031 ####[facility] [place] [address], [facility] DIRECT BILIon 10-30-2017 Bilirubin.direct mass conc 0.0 mg/dL Normal 0.0-0.2 [facility] Comment on above: Performed By: #### 4 5506, 48979, 18548, 69432, 77086, 94950 ####[facility] [place] [address], [facility] EVEROLIMUS 55483op 8 EVEROLIMUS 6.0 ng/mL Normal [facility] Comment on above: Result Comment: [...] the transplantcenter.Test developed and characteristics determined by [facility]. See Compliance Statement B: [employer],[address] [place] [address] [phone] abr.[employer], Leonid Antonio MD - Lab. Director LIPID PROFILEon 10-30-2017 Cholesterol in HDL mass conc 50 mg/dL Normal 23-92 [facility] Comment on above: Result Comment: Slig ht variation in normal range could be due to gender and/or age.HDL CHOLESTEROL REFERENCE RANGE:20 years and older Cardiovascular Risk> or =60 mg/dL Vtbiyanuq63 TO 59 mg/dL Low Risk<40 mg/dL High Risk Performed By: #### 4 5396, 61451, 43303, 81351, 04438, 95231 ####[facility] [place] [address], [facility] Cholesterol in LDL mass conc 85 mg/dL Normal 0-130 [facility] Comment on above: Result Comment: LDL IS A CALCULATIONLDL IS ONLY VALID IF THE TRIG IS LESS THAN 400. Performed By: #### 4 5506, 40668, 77650, 16456, 39271, 72823 ####[facility] [place] [address], [facility] Cholesterol mass conc 152 mg/dL Normal 120-200 [facility] Comment on above: Result Comment: CHOL ESTEROL REFERENCE RANGE:20 YEARS AND OLDER CARDIOVASCULAR RISKLess than 200 mg/dl Low Swst381 to 239 mg/dl Borderline Woxy284 mg/dl and greater High Risk Performed By: #### 4 5506, 98930, 37833, 67008, 94659, 71198 ####[facility]3000 [facility] [place] [address], [facility] Cholesterol.total/Cho lesterol in HDL mass ratio 3.0 {ratio} Normal .0-4.5 [facility] Comment on above: Performed By: #### 4 5506, 38704, 06441, 04998, 60665, 68063 ####[facility] [place] [address], [facility] NON-HDL CHOLESTEROL 102 mg/dL Normal The [facility] Comment on above: Performed By: #### 4 5506, 54493, 29446, 43144, 83728, 76531 ####[facility] [facility] [place] [address], [facility] Triglyceride mass conc 87 mg/dL Normal 40-149 [facility] Comment on above: Result Comment: TRIG LYCERIDE REFERENCE RANGE:20 YEARS AND OLDER CARDIOVASCULAR RISKLESS THAN 150 mg/dl LOW [id number] TO 199 mg/dl BORDERLINE RZCA528 mg/dl AND GREATER HIGH RISK Performed By: #### 4 5506, 01287, 22850, 24468, 81086, 33062 ####[facility] [place] [address], [place] VLDL CHOL 17 mg/dL Normal 0-40 [facility] Comment on above: Performed By: #### 4 5506, 58935, 20096, 16307, 08421, 31746 ####[facility] MAGNESIUM BLOODon 10-30-2017 Magnesium mass conc 1.9 mg/dL Normal 1.9-2.7 The [facility] Comment on above: Performed By: #### 4 5506, 49214, 91936, 61099, 73077, 26422 ####[facility]3000 [facility].[address] PHOSPHORUS BLOODon 8 Phosphate mass conc 3.7 mg/dL Normal 2.5-5.0 The [facility] Comment on above: Performed By: #### 4 5506, 25628, 42383, 09581, 41942, 16148 ####[facility] TACROLIMUSon 10-30-2017 Tacrolimus mass conc (Bld) 7.1 ng/mL Normal 5.0-20.0 [facility] Comment on above: Result Comment: The [employer] Tacrolimus assay is a delayed one-step immunoassayfor the quantitative determination of tacrolimus in human whole bloodusing the chemiluminescent microparticle immunoassay (CMIA) technologywith flexible assay protocols, referred to as Chemiflex. Performed By: #### 9 9914 ####[place] [address] URIC ACID BLOODon 10-30-2017 Urate mass conc 4.6 mg/dL Normal 2.3-6.6 The [facility] Comment on above: Performed By: #### 4 6447, 39520 ####[place] [address] CBC W/DIFFon 10-23-2017 ABS BASOPHILS 0.0 10*3/uL Normal 0.0-0.2 The [facility] Comment on above: Performed By: #### 4 4847, 30049 ####[facility]3000 [facility].[address] ABS IMM GRANS 0.1 10*3/uL Normal 0.0-0.2 The [facility] Comment on above: Performed By: #### 4 4658, 85322 ####[facility]3000 [facility] [place] [address], [facility] ABS NEUTROPHILS 5.8 10*3/uL Normal 1.6-7.6 The [facility] Comment on above: Performed By: #### 4 2528, 26093 ####[facility]3000 [facility].[address] Basophils Auto #/vol (Bld) 0.2 % Normal 0.0-1.0 [facility] Comment on above: Performed By: #### 8 1560, 26167 ####[place] [address] [facility].[address] Eosinophils Auto #/vol (Bld) 0.1 10*3/uL Normal 0.0-0.5 [facility] Comment on above: Performed By: #### 8 0090, 64174 ####[facility]3000 [facility] [place] [address], [facility] Eosinophils/100 WBC Auto (Bld) 0.7 % Normal 0.0-6.0 [facility] Comment on above: Performed By: #### 1 3147, 46583 ####[place] [facility].[address] Erythrocyte distribution width Auto Ratio (RBC) 14.6 % Normal 11.5-15.0 The [facility] Comment on above: Performed By: #### 4 2819, 58396 ####[place] [address] [facility].[address] Hematocrit Auto Volume Fraction (Bld) 44.2 % Normal 36.0-45.0 The [facility] Comment on above: Performed By: #### 4 2847, 16668 ####[facility] [address] Hemoglobin mass conc (Bld) 14.2 g/dL Normal 12.0-15.0 The [facility] Comment on above: Performed By: #### 4 0306, 64734 ####[place] [address] [address] IMMATURE GRANS 1.4 % High 0.0-1.0 The [facility] Comment on above: Performed By: #### 4 0763, 22347 ####[address] Lymphocytes Auto #/vol (Bld) 2.1 10*3/uL Normal 1.2-4.0 The [facility] Comment on above: Performed By: #### 4 8457, 85212 ####[place] [address] [address] Lymphocytes/100 WBC Auto (Bld) 22.5 % Normal 20.0-45.0 [facility] Comment on above: Performed By: #### 4 4831, 54118 ####[address] MCH Auto Entitic mass (RBC) 28.5 pg Normal 27.0-33.0 [facility] Comment on above: Performed By: #### 4 8311, 04885 ####[facility].[address] MCHC Auto mass conc (RBC) 32.1 g/dL Normal 32.0-35.0 [facility] Comment on above: Performed By: #### 3 3351, 98609 ####[address] MCV Auto Entitic volume (RBC) 88.8 fL Normal 82.0-98.0 [facility] Comment on above: Performed By: #### 4 8247, 63775 ####[facility].[address] Monocytes Auto #/vol (Bld) 1.1 10*3/uL High 0.1-1.0 [facility] Comment on above: Performed By: #### 4 7347, 63756 ####[facility].[address] MONOS 12.0 % Normal 5.0-12.0 [facility] Comment on above: Performed By: #### 4 6447, 84344 ####[address] Neutrophils/100 WBC Auto (Bld) 63.2 % Normal 40.0-72.0 [facility] Comment on above: Performed By: #### 4 6347, 96282 ####[address] Nucleated RBC/100 WBC Ratio (Bld) 0 % Normal 0-0 [facility] Comment on above: Performed By: #### 4 7647, 46957 ####[facility].[address] PLAT CNT 241 10*3/uL Normal 150-400 The [facility] Comment on above: Performed By: #### 4 2547, 93392 ####[facility].[address] RBC Auto #/vol (Bld) 4.98 10*6/uL Normal 3.80-5.00 Th e [facility] Comment on above: Performed By: #### 4 6947, 37281 ####[facility].[address] WBC Auto #/vol (Bld) 9.14 10*3/uL Normal 4.00-10.60 Th e [facility] Comment on above: Performed By: #### 4 1347, 90158 ####[facility].[address] COMP METABOLIC PANELon 10-23 Albumin mass conc 3.8 g/dL Normal 3.5-5.7 The [facility] Comment on above: Performed By: #### 4 3647, 28793 ####[facility].[address] ALKALINE PHOSPH 96 IU/L Normal 34-104 The [facility] Comment on above: Performed By: #### 4 8747, 72754 ####[facility].[address] ALT enzyme act/vol 15 U/L Normal 7-52 The [facility] Comment on above: Performed By: #### 4 0847, 82573 ####[facility].[address] AST enzyme act/vol 13 U/L Normal 13-39 The [facility] Comment on above: Performed By: #### 4 1847, 84956 ####[facility].[address] Bilirubin mass conc 0.4 mg/dL Normal 0.3-1.0 [facility] Comment on above: Performed By: #### 4 5934, 84617 ####[facility].[address] Calcium mass conc 9.2 mg/dL Normal 8.6-10.3 The [facility] Comment on above: Performed By: #### 4 0445, 66154 ####[facility] [place] [address], [place] Chloride molar conc 102 mmol/L Normal 98-107 [facility] Comment on above: Performed By: #### 5 3792, 93644 ####[facility] [place] [address], [place] CO2 molar conc 29 mmol/L Normal 21-31 The [facility] Comment on above: Performed By: #### 4 7349, 87742 ####[facility] [place] [address], [place] Creatinine mass conc 0.80 mg/dL Normal 0.60-1.20 The [facility] Comment on above: Performed By: #### 3 9692, 14023 ####[facility] [place] [address], [place] GFR/1.73 sq M predicted among blacks MDRD vol rate/area (S/P/Bld) mL/min/{1.73_m2} Normal >60 The [facility] Comment on above: Performed By: #### 1 8062, 40409 ####[facility] [place] [address], [facility] GFR/1.73 sq M predicted among non-blacks MDRD vol rate/area (S/P/Bld) mL/min/{1.73_m2} Normal >60 The [facility] Comment on above: Performed By: #### 9 1002, 07081 ####[facility] [place] [address], [place] Glucose mass conc 85 mg/dL Normal 70-100 [facility] Comment on above: Performed By: #### 7 6291, 39511 ####[facility] [place] [address], [place] Potassium molar conc 3.3 mmol/L Low 3.5-5.1 The [facility] Comment on above: Performed By: #### 4 6447, 52083 ####[facility].[address] Protein mass conc 6.5 g/dL Normal 6.0-8.3 The [facility] Comment on above: Performed By: #### 4 6447, 08874 ####[facility].[address] Sodium molar conc 139 mmol/L Normal 136-145 The [facility] Comment on above: Performed By: #### 4 6447, 64540 ####[facility].[address] Urea nitrogen mass conc 18 mg/dL Normal 7-25 The [facility] Comment on above: Performed By: #### 4 6447, 80557 ####[place] [address] [address] DIRECT BILIon 10-23-2017 Bilirubin.direct mass conc 0.1 mg/dL Normal 0.0-0.2 The [facility] Comment on above: Performed By: #### 4 6447, 07415 ####[facility] [address] EVEROLIMUS [id number] 8 EVEROLIMUS 4.0 ng/mL Normal The [facility] Comment on above: Result Comment: Ther apeutic [...] the transplantcenter.Test developed and characteristics determined by [facility]. See Compliance Statement B: [employer]/CSPerformed by [employer],[facility] [place] [address] nok.[employer], Leonid Antonio MD - Lab. Director LIPID PROFILEon 10-23-2017 Cholesterol in HDL mass conc 53 mg/dL Normal 23-92 The [facility] Comment on above: Result Comment: Slig ht variation in normal range could be due to gender and/or age.HDL CHOLESTEROL REFERENCE RANGE:20 years and older Cardiovascular Risk> or =60 mg/dL Qcdaiwpxe27 TO 59 mg/dL Low Risk<40 mg/dL High Risk Performed By: #### 4 5596, 41120 ####[facility] [place] [address], [facility] Cholesterol in LDL mass conc 68 mg/dL Normal 0-130 The [facility] Comment on above: Result Comment: LDL IS A CALCULATIONLDL IS ONLY VALID IF THE TRIG IS LESS THAN 400. Performed By: #### 4 0365, 65158 ####[facility] [place] [address], [facility] Cholesterol mass conc 135 mg/dL Normal 120-200 The [facility] Comment on above: Result Comment: CHOL ESTEROL REFERENCE RANGE:20 YEARS AND OLDER CARDIOVASCULAR RISKLess than 200 mg/dl Low Lrth691 to 239 mg/dl Borderline Qisz756 mg/dl and greater High Risk Performed By: #### 4 4125, 72151 ####[facility] [place] [address], [facility] Cholesterol.total/Cho lesterol in HDL mass ratio 2.5 {ratio} Normal .0-4.5 The [facility] Comment on above: Performed By: #### 4 3047, 02544 ####[facility].[address] NON-HDL CHOLESTEROL 82 mg/dL Normal The [facility] Comment on above: Performed By: #### 4 6447, 52279 ####[facility].[address] Triglyceride mass conc 72 mg/dL Normal 40-149 [facility] Comment on above: Result Comment: TRIG LYCERIDE REFERENCE RANGE:20 YEARS AND OLDER CARDIOVASCULAR RISKLESS THAN 150 mg/dl LOW SHIT619 TO 199 mg/dl BORDERLINE [id number] mg/dl AND GREATER HIGH RISK Performed By: #### 4 0592, 25166 ####[facility].[address] VLDL CHOL 14 mg/dL Normal 0-40 [facility] Comment on above: Performed By: #### 4 5847, 68325 ####[facility].[address] MAGNESIUM BLOODon 10-23-2017 Magnesium mass conc 1.8 mg/dL Low 1.9-2.7 The [facility] Comment on above: Performed By: #### 4 8247, 01685 ####[facility].[address] PHOSPHORUS BLOODon 8 Phosphate mass conc 3.7 mg/dL Normal 2.5-5.0 The [facility] Comment on above: Performed By: #### 4 8947, 26364 ####[facility].[address] TACROLIMUSon 10-23-2017 Tacrolimus mass conc (Bld) 2.6 ng/mL Low 5.0-20.0 The [facility] Comment on above: Result Comment: The [employer] Tacrolimus assay is a delayed one-step immunoassayfor the quantitative determination of tacrolimus in human whole bloodusing the chemiluminescent microparticle immunoassay (CMIA) technologywith flexible assay protocols, referred to as Chemiflex. Performed By: #### 4 6447, 56710 ####[facility] [address] URIC ACID BLOODon 10-23-2017 Urate mass conc 4.3 mg/dL Normal 2.3-6.6 The [facility] Comment on above: Performed By: #### 4 6447, 71072 ####[facility] [address] CBC W/DIFFon 09-25-2017 ABS BASOPHILS 0.0 10*3/uL Normal 0.0-0.2 The [facility] Comment on above: Performed By: #### 4 1000, 30420, 04557, 84035, 50094, 33906 ####[facility] [address] ABS IMM GRANS 0.0 10*3/uL Normal 0.0-0.2 The [facility] Comment on above: Performed By: #### 4 1000, 83350, 22154, 43316, 38871, 26742 ####[place] [address] [address] ABS NEUTROPHILS 4.4 10*3/uL Normal 1.6-7.6 The [facility] Comment on above: Performed By: #### 4 1000, 14866, 63058, 57539, 97937, 41751 ####[facility] [address] Basophils Auto #/vol (Bld) 0.2 % Normal 0.0-1.0 The [facility] Comment on above: Performed By: #### 4 1000, 93893, 77580, 15077, 46388, 17647 ####[facility] Eosinophils Auto #/vol (Bld) 0.1 10*3/uL Normal 0.0-0.5 The [facility] Comment on above: Performed By: #### 4 1000, 83375, 79768, 54715, 88874, 26419 ####[address] Eosinophils/100 WBC Auto (Bld) 2.2 % Normal 0.0-6.0 [facility] Comment on above: Performed By: #### 4 1000, 88989, 94394, 14153, 99012, 27090 ####[address] Erythrocyte distribution width Auto Ratio (RBC) 14.0 % Normal 11.5-15.0 [facility] Comment on above: Performed By: #### 4 1000, 92518, 76790, 96003, 90131, 04416 ####[place] [address] [facility].[address] Hematocrit Auto Volume Fraction (Bld) 44.8 % Normal 36.0-45.0 The [facility] Comment on above: Performed By: #### 4 1000, 39370, 61711, 02964, 65318, 89496 ####[address] Hemoglobin mass conc (Bld) 14.5 g/dL Normal 12.0-15.0 [facility] Comment on above: Performed By: #### 4 1000, 28149, 66602, 95184, 37345, 02539 ####[place] [address] [facility].[address] IMMATURE GRANS 0.3 % Normal 0.0-1.0 The [facility] Comment on above: Performed By: #### 4 1000, 75757, 79399, 46232, 38578, 37348 ####[facility].[address] Lymphocytes Auto #/vol (Bld) 1.1 10*3/uL Low 1.2-4.0 [facility] Comment on above: Performed By: #### 4 1000, 60865, 34778, 70704, 70220, 66304 ####[facility].[address] Lymphocytes/100 WBC Auto (Bld) 17.0 % Low 20.0-45.0 [facility] Comment on above: Performed By: #### 4 1000, 98694, 15889, 20331, 50110, 53067 ####[facility].[address] MCH Auto Entitic mass (RBC) 28.6 pg Normal 27.0-33.0 [facility] Comment on above: Performed By: #### 4 1000, 49493, 53336, 18533, 44605, 68936 ####[facility].[address] MCHC Auto mass conc (RBC) 32.4 g/dL Normal 32.0-35.0 [facility] Comment on above: Performed By: #### 4 1000, 34080, 85500, 92172, 12171, 85768 ####[facility].[address] MCV Auto Entitic volume (RBC) 88.4 fL Normal 82.0-98.0 [facility] Comment on above: Performed By: #### 4 1000, 22703, 57733, 27437, 81531, 45557 ####[facility].[address] Monocytes Auto #/vol (Bld) 0.7 10*3/uL Normal 0.1-1.0 [facility] Comment on above: Performed By: #### 4 1000, 93037, 22230, 44686, 37422, 17287 ####[facility] [place] [address], [facility] MONOS 11.5 % Normal 5.0-12.0 [facility] Comment on above: Performed By: #### 4 1000, 53645, 17678, 64025, 87898, 23165 ####[facility] Neutrophils/100 WBC Auto (Bld) 68.8 % Normal 40.0-72.0 [facility] Comment on above: Performed By: #### 4 1000, 20387, 66538, 52329, 63100, 81470 ####[facility].[address] Nucleated RBC/100 WBC Ratio (Bld) 0 % Normal 0-0 [facility] Comment on above: Performed By: #### 4 1000, 46514, 25528, 20456, 50658, 99749 ####[facility].[address] PLAT CNT 212 10*3/uL Normal 150-400 The [facility] Comment on above: Performed By: #### 4 1000, 93922, 93259, 72458, 05471, 75681 ####[facility].[address] RBC Auto #/vol (Bld) 5.07 10*6/uL High 3.80-5.[address] [facility] Comment on above: Performed By: #### 4 1000, 30448, 85686, 40963, 76398, 06454 ####[facility] WBC Auto #/vol (Bld) 6.34 10*3/uL Normal 4.00-10.[address] [facility] Comment on above: Performed By: #### 4 1000, 37216, 69414, 82118, 09744, 73653 ####[facility] COMP METABOLIC PANELon 09-25 Albumin mass conc 4.0 g/dL Normal 3.5-5.7 The [facility] Comment on above: Performed By: #### 4 6447, 74371 ####[facility] [place] [address], [facility] ALKALINE PHOSPH 112 IU/L High 34-104 The [facility] Comment on above: Performed By: #### 4 3247, 37505 ####[facility] [place] [address], [facility] ALT enzyme act/vol 11 U/L Normal 7-52 The [facility] Comment on above: Performed By: #### 4 1849, 70544 ####[facility] [place] [address], [facility] AST enzyme act/vol 17 U/L Normal 13-39 The [facility] Comment on above: Performed By: #### 4 2981, 49728 ####[facility] [place] [address], [facility] Bilirubin mass conc 0.5 mg/dL Normal 0.3-1.0 The [facility] Comment on above: Performed By: #### 4 1847, 06201 ####[facility] [place] [address], [facility] Calcium mass conc 9.6 mg/dL Normal 8.6-10.3 The [facility] Comment on above: Performed By: #### 4 6420, 68861 ####[facility] [id number], [facility] Chloride molar conc 104 mmol/L Normal 98-107 [facility] Comment on above: Performed By: #### 9 4247, 44593 ####[facility] [place] [address], [facility] CO2 molar conc 28 mmol/L Normal 21-31 [facility] Comment on above: Performed By: #### 1 2259, 81569 ####[facility] [place] [address], [facility] Creatinine mass conc 0.83 mg/dL Normal 0.60-1.20 The [facility] Comment on above: Performed By: #### 3 2259, 38894 ####[place] [address] [facility] [place] [address], [facility] GFR/1.73 sq M predicted among blacks MDRD vol rate/area (S/P/Bld) mL/min/{1.73_m2} Normal >60 The [facility] Comment on above: Performed By: #### 2 6313, 43791 ####[place] [address] [facility] [place] [address], [facility] GFR/1.73 sq M predicted among non-blacks MDRD vol rate/area (S/P/Bld) mL/min/{1.73_m2} Normal >60 The [facility] Comment on above: Performed By: #### 5 9418, 61626 ####[place] [address] [facility] [place] [address], [facility] Glucose mass conc 91 mg/dL Normal 70-100 [facility] Comment on above: Performed By: #### 7 9598, 62307 ####[facility] [place] [address], [facility] Potassium molar conc 3.9 mmol/L Normal 3.5-5.1 The [facility] Comment on above: Performed By: #### 1 0331, 46666 ####[facility].[address] Protein mass conc 7.0 g/dL Normal 6.0-8.3 The [facility] Comment on above: Performed By: #### 4 6447, 37014 ####[address] Sodium molar conc 140 mmol/L Normal 136-145 The [facility] Comment on above: Performed By: #### 4 6447, 92209 ####[address] Urea nitrogen mass conc 15 mg/dL Normal 7-25 The [facility] Comment on above: Performed By: #### 4 6447, 19566 ####[address] DIRECT BILIon 09-25-2017 Bilirubin.direct mass conc 0.1 mg/dL Normal 0.0-0.2 The [facility] Comment on above: Performed By: #### 4 6447, 34449 ####[address] EVEROLIMUS 81519sj 8 EVEROLIMUS 5.1 ng/mL Normal The [facility] Comment on above: Result Comment: Ther apeutic [...] the transplantcenter.Test developed and characteristics determined by [facility]. See Compliance Statement B: [employer]SPerformed by [employer],[address], [facility] [place] [address] bph.[employer], Leonid Antonio MD - Lab. Director LIPID PROFILEon 09-25-2017 Cholesterol in HDL mass conc 48 mg/dL Normal 23-92 The [facility] Comment on above: Result Comment: Slig ht variation in normal range could be due to gender and/or age.HDL CHOLESTEROL REFERENCE RANGE:20 years and older Cardiovascular Risk> or =60 mg/dL Sxkmljxzo31 TO 59 mg/dL Low Risk<40 mg/dL High Risk Performed By: #### 4 3232, 38593 ####[facility] [place] [address], [facility] Cholesterol in LDL mass conc 69 mg/dL Normal 0-130 [facility] Comment on above: Result Comment: LDL IS A CALCULATIONLDL IS ONLY VALID IF THE TRIG IS LESS THAN 400. Performed By: #### 4 4807, 87794 ####[facility] [facility] [place] [address], [facility] Cholesterol mass conc 138 mg/dL Normal 120-200 The [facility] Comment on above: Result Comment: CHOL ESTEROL REFERENCE RANGE:20 YEARS AND OLDER CARDIOVASCULAR RISKLess than 200 mg/dl Low Zxce205 to 239 mg/dl Borderline Uktn006 mg/dl and greater High Risk Performed By: #### 4 9811, 43946 ####[facility] [facility] [place] [address], [facility] Cholesterol.total/Cho lesterol in HDL mass ratio 2.9 {ratio} Normal .0-4.5 The [facility] Comment on above: Performed By: #### 4 8776, 54599 ####[facility].[address] NON-HDL CHOLESTEROL 90 mg/dL Normal The [facility] Comment on above: Performed By: #### 4 7947, 51701 ####[facility].[address] Triglyceride mass conc 103 mg/dL Normal 40-149 The [facility] Comment on above: Result Comment: TRIG LYCERIDE REFERENCE RANGE:20 YEARS AND OLDER CARDIOVASCULAR RISKLESS THAN 150 mg/dl LOW [id number] TO 199 mg/dl BORDERLINE [id number] mg/dl AND GREATER HIGH RISK Performed By: #### 4 8713, 34489 ####[facility] VLDL CHOL 21 mg/dL Normal 0-40 [facility] Comment on above: Performed By: #### 4 1785, 20498 ####[facility].[address] MAGNESIUM BLOODon 09-25-2017 Magnesium mass conc 1.8 mg/dL Low 1.9-2.7 The [facility] Comment on above: Performed By: #### 4 7157, 35343 ####[facility].[address] PHOSPHORUS BLOODon 8 Phosphate mass conc 3.4 mg/dL Normal 2.5-5.0 The [facility] Comment on above: Performed By: #### 4 8748, 35202 ####[facility].[address] TACROLIMUSon 09-25-2017 Tacrolimus mass conc (Bld) 3.6 ng/mL Low 5.0-20.0 [facility] Comment on above: Result Comment: The [employer] Tacrolimus assay is a delayed one-step immunoassayfor the quantitative determination of tacrolimus in human whole bloodusing the chemiluminescent microparticle immunoassay (CMIA) technologywith flexible assay protocols, referred to as Chemiflex. Performed By: #### 4 6447, 71926 ####[facility].[address] URIC ACID BLOODon 09-25-2017 Urate mass conc 4.7 mg/dL Normal 2.3-6.6 The [facility] Comment on above: Performed By: #### 4 6447, 97815 ####[place] [address] [facility].[address] BK VIRUS QUANTITATION PCR BL OODon 08-26-2017 BKV QUANT PCR Not detected Normal The [facility] Comment on above: Result Comment: Meth od: BK virus was measured by quantitative polymerase chain reactionusing a TaqMan probe targeting the polyomavirus BK [place] OF ESTATE-1 gene.The lower limit of quantitation of the assay is 500 copies of BK genomeper milliliter of plasma or urine, and any detectable BK DNA below thatlevel is reported as: Detected, <500 copies/ml. Serial BK virusmeasurement can be used to monitor disease activity. (Reference:Kelsie vaughanl. J CLIN MICRO 2004; 42:2763-5040).This test was developed and its performance characteristics determinedby the [facility]. It has not been approvedby the [place] Food and Drug Administration. However, such approval is notrequired for clinical implementation, and test results have been shownto be clinically useful. This laboratory is CAP accredited and CLIAcertified to perform high complexity testing. Performed By: #### 4 1000, 20620, 69115, 36632, 18236, 66684 ####[facility].[address] LOG 10 COPIES Not detected Normal The [facility] Comment on above: Performed By: #### 4 1000, 06297, 16695, 27733, 89395, 38984 ####[facility].[address] CBC W/DIFFon 08-26-2017 ABS BASOPHILS 0.0 10*3/uL Normal 0.0-0.2 The [facility] Comment on above: Performed By: #### 4 1000, 41021, 26287, 02236, 38887, 66825 ####[facility].[address] ABS IMM GRANS 0.0 10*3/uL Normal 0.0-0.2 The [facility] Comment on above: Performed By: #### 4 1000, 35815, 12871, 32005, 02787, 59151 ####[facility].[address] ABS NEUTROPHILS 4.5 10*3/uL Normal 1.6-7.6 The [facility] Comment on above: Performed By: #### 4 1000, 26214, 44504, 55166, 86216, 59511 ####[facility].[address] Basophils Auto #/vol (Bld) 0.2 % Normal 0.0-1.0 The [facility] Comment on above: Performed By: #### 4 1000, 89330, 14867, 98947, 23762, 39683 ####[facility].[address] Eosinophils Auto #/vol (Bld) 0.2 10*3/uL Normal 0.0-0.5 The [facility] Comment on above: Performed By: #### 4 1000, 85063, 25488, 60524, 04138, 07946 ####[facility].[address] Eosinophils/100 WBC Auto (Bld) 2.4 % Normal 0.0-6.0 The [facility] Comment on above: Performed By: #### 4 1000, 74602, 78781, 80047, 11955, 38065 ####[facility].[address] Erythrocyte distribution width Auto Ratio (RBC) 14.0 % Normal 11.5-15.0 The [facility] Comment on above: Performed By: #### 4 1000, 14434, 32684, 01920, 72945, 08868 ####[facility] Hematocrit Auto Volume Fraction (Bld) 44.9 % Normal 36.0-45.0 The [facility] Comment on above: Performed By: #### 4 1000, 35173, 63434, 21932, 77817, 42849 ####[facility].[address] Hemoglobin mass conc (Bld) 14.9 g/dL Normal 12.0-15.0 The [facility] Comment on above: Performed By: #### 4 1000, 12957, 89881, 79671, 57328, 69064 ####[facility].[address] IMMATURE GRANS 0.5 % Normal 0.0-1.0 The [facility] Comment on above: Performed By: #### 4 1000, 28667, 87258, 31415, 43659, 04182 ####[facility].[address] Lymphocytes Auto #/vol (Bld) 1.0 10*3/uL Low 1.2-4.0 The [facility] Comment on above: Performed By: #### 4 1000, 64979, 65657, 83783, 86162, 76184 ####[facility] Lymphocytes/100 WBC Auto (Bld) 15.8 % Low 20.0-45.0 The [facility] Comment on above: Performed By: #### 4 1000, 62293, 24789, 34716, 58390, 26509 ####[facility].[address] MCH Auto Entitic mass (RBC) 29.1 pg Normal 27.0-33.0 The [facility] Comment on above: Performed By: #### 4 1000, 14394, 59695, 11109, 09669, 62699 ####[place] [address] [facility].[address] MCHC Auto mass conc (RBC) 33.2 g/dL Normal 32.0-35.0 The [facility] Comment on above: Performed By: #### 4 1000, 95716, 17837, 81475, 78137, 60468 ####[place] [address] MCV Auto Entitic volume (RBC) 87.7 fL Normal 82.0-98.0 The [facility] Comment on above: Performed By: #### 4 1000, 46001, 47535, 01529, 37423, 72182 ####[address] Monocytes Auto #/vol (Bld) 0.7 10*3/uL Normal 0.1-1.0 The [facility] Comment on above: Performed By: #### 4 1000, 39304, 17885, 78832, 67459, 27362 ####[address] MONOS 10.6 % Normal 5.0-12.0 The [facility] Comment on above: Performed By: #### 4 1000, 26533, 36440, 14138, 73910, 43870 ####[place] [address] Neutrophils/100 WBC Auto (Bld) 70.5 % Normal 40.0-72.0 The [facility] Comment on above: Performed By: #### 4 1000, 58488, 23398, 10903, 25369, 53145 ####[facility] Nucleated RBC/100 WBC Ratio (Bld) 0 % Normal 0-0 [facility] Comment on above: Performed By: #### 4 1000, 05917, 46190, 17953, 74937, 34666 ####[facility] PLAT CNT 231 10*3/uL Normal 150-400 The [facility] Comment on above: Performed By: #### 4 1000, 37326, 16314, 06476, 11448, 62424 ####[facility].[address] RBC Auto #/vol (Bld) 5.12 10*6/uL High 3.80-5.00 Th e [facility] Comment on above: Performed By: #### 4 1000, 50756, 03159, 94232, 74092, 90137 ####[facility].[address] WBC Auto #/vol (Bld) 6.32 10*3/uL Normal 4.00-10.[address] [facility] Comment on above: Performed By: #### 4 1000, 97965, 48719, 42414, 93759, 84337 ####[facility] COMP METABOLIC PANELon 08-26 Albumin mass conc 4.3 g/dL Normal 3.5-5.7 The [facility] Comment on above: Performed By: #### 4 1000, 77023, 85655, 61974, 50610, 91578 ####[facility] ALKALINE PHOSPH 125 IU/L High 34-104 The [facility] Comment on above: Performed By: #### 4 1000, 69973, 15309, 86651, 92546, 55124 ####[facility] [place] [address], [place] ALT enzyme act/vol 17 U/L Normal 7-52 The [facility] Comment on above: Performed By: #### 4 1000, 23273, 70615, 33514, 78603, 67165 ####[facility] [place] [address], [place] AST enzyme act/vol 23 U/L Normal 13-39 The [facility] Comment on above: Performed By: #### 4 1000, 48864, 90633, 35106, 66493, 53980 ####[facility] [place] [address], [place] Bilirubin mass conc 0.4 mg/dL Normal 0.3-1.0 [facility] Comment on above: Performed By: #### 4 1000, 27170, 69795, 77733, 65698, 91718 ####[facility] [place] [address], [place] Calcium mass conc 9.6 mg/dL Normal 8.6-10.3 The [facility] Comment on above: Performed By: #### 4 1000, 52689, 25696, 54180, 37786, 55689 ####[facility] [place] [address], [place] Chloride molar conc 104 mmol/L Normal 98-107 The [facility] Comment on above: Performed By: #### 4 1000, 95226, 01900, 83805, 50329, 10810 ####[facility] [place] [address], [place] CO2 molar conc 27 mmol/L Normal 21-31 The [facility] Comment on above: Performed By: #### 4 1000, 84415, 83043, 44595, 95079, 41398 ####[facility] [id number] [place] [address], [facility] Creatinine mass conc 0.77 mg/dL Normal 0.60-1.20 The [facility] Comment on above: Performed By: #### 4 1000, 14076, 87808, 14371, 80749, 58841 ####[facility] [place] [address], [place] GFR/1.73 sq M predicted among blacks MDRD vol rate/area (S/P/Bld) mL/min/{1.73_m2} Normal >60 The [facility] Comment on above: Performed By: #### 4 1000, 34254, 69996, 92311, 90312, 98854 ####[facility] [place] [address], [facility] GFR/1.73 sq M predicted among non-blacks MDRD vol rate/area (S/P/Bld) mL/min/{1.73_m2} Normal >60 The [facility] Comment on above: Performed By: #### 4 1000, 34399, 33372, 17575, 92130, 75481 ####[facility] [place] [address], [place] Glucose mass conc 95 mg/dL Normal 70-100 The [facility] Comment on above: Performed By: #### 4 1000, 33271, 52188, 21049, 23907, 93651 ####[facility] [place] [address], [place] Potassium molar conc 4.1 mmol/L Normal 3.5-5.1 The [facility] Comment on above: Performed By: #### 4 1000, 08636, 53238, 79066, 09883, 24832 ####[facility] [place] [address], [place] Protein mass conc 7.3 g/dL Normal 6.0-8.3 [facility] Comment on above: Performed By: #### 4 1000, 58141, 47695, 60633, 41513, 49041 ####[facility] Sodium molar conc 139 mmol/L Normal 136-145 The [facility] Comment on above: Performed By: #### 4 1000, 47073, 64358, 90044, 53482, 02322 ####[facility] Urea nitrogen mass conc 12 mg/dL Normal 7-25 The [facility] Comment on above: Performed By: #### 4 1000, 70846, 59641, 43039, 13612, 97221 ####[facility] DIRECT BILIon 08-26-2017 Bilirubin.direct mass conc 0.1 mg/dL Normal 0.0-0.2 The [facility] Comment on above: Performed By: #### 4 1000, 75172, 58736, 81247, 91787, 51542 ####[facility].[address] EVEROLIMUS 48646ay 8 EVEROLIMUS 5.6 ng/mL Normal The [facility] Comment on above: Result Comment: Ther apeutic [...] the transplantcenter.Test developed and characteristics determined by [facility]. See Compliance Statement B: [employer]/CSPerformed by [employer],[facility] [place] [address] yhv.[employer], Leonid Antonio MD - Lab. Director HEMOGLOBIN A1Con 08-26-2017 Glucose mass conc 114 mg/dL Normal 70-126 [facility] Comment on above: Performed By: #### 4 1000, 96690, 59756, 62999, 04044, 43337 ####[facility].[address] Hemoglobin A1c/Hemoglobin.total mass fraction (Bld) 5.6 % Normal 4.0-6.0 The [facility] Comment on above: Performed By: #### 4 1000, 17300, 15488, 88369, 34942, 68087 ####[facility].[address] LIPID PROFILEon 08-26-2017 Cholesterol in HDL mass conc 49 mg/dL Normal 23-92 [facility] Comment on above: Result Comment: Slig ht variation in normal range could be due to gender and/or age.HDL CHOLESTEROL REFERENCE RANGE:20 years and older Cardiovascular Risk> or =60 mg/dL [id number] TO 59 mg/dL Low Risk<40 mg/dL High Risk Performed By: #### 4 1000, 28774, 96228, 72349, 00560, 81563 ####[facility] [facility] [facility].[address] Cholesterol in LDL mass conc 76 mg/dL Normal 0-130 [facility] Comment on above: Result Comment: LDL IS A CALCULATIONLDL IS ONLY VALID IF THE TRIG IS LESS THAN 400. Performed By: #### 4 1000, 59166, 33194, 88298, 00998, 63068 ####[facility] [place] [address], [facility] Cholesterol mass conc 152 mg/dL Normal 120-200 The [facility] Comment on above: Result Comment: CHOL ESTEROL REFERENCE RANGE:20 YEARS AND OLDER CARDIOVASCULAR RISKLess than 200 mg/dl Low Oxdg694 to 239 mg/dl Borderline Ifqg397 mg/dl and greater High Risk Performed By: #### 4 1000, 27303, 46523, 10099, 59600, 05734 ####[facility] [place] [address], [facility] Cholesterol.total/Cho lesterol in HDL mass ratio 3.1 {ratio} Normal .0-4.5 [facility] Comment on above: Performed By: #### 4 1000, 37357, 98370, 73178, 49777, 57283 ####[facility] [place] [address], [facility] NON-HDL CHOLESTEROL 103 mg/dL Normal The [facility] Comment on above: Performed By: #### 4 1000, 13209, 32768, 34337, 51726, 57677 ####[facility] [place] [address], [facility] Triglyceride mass conc 133 mg/dL Normal 40-149 The [facility] Comment on above: Result Comment: TRIG LYCERIDE REFERENCE RANGE:20 YEARS AND OLDER CARDIOVASCULAR RISKLESS THAN 150 mg/dl LOW RTNT641 TO 199 mg/dl BORDERLINE TXOA105 mg/dl AND GREATER HIGH RISK Performed By: #### 4 1000, 15575, 20061, 25360, 19252, 27925 ####[facility] [place] [address], [facility] VLDL CHOL 27 mg/dL Normal 0-40 The [facility] Comment on above: Performed By: #### 4 1000, 16000, 21407, 85846, 45998, 97056 ####[facility].[address] MAGNESIUM BLOODon 08-26-2017 Magnesium mass conc 1.9 mg/dL Normal 1.9-2.7 The [facility] Comment on above: Performed By: #### 4 1000, 95862, 79404, 31844, 37003, 43035 ####[facility].[address] PHOSPHORUS BLOODon 8 Phosphate mass conc 3.4 mg/dL Normal 2.5-5.0 The [facility] Comment on above: Performed By: #### 4 1000, 90004, 25546, 66687, 88473, 77531 ####[facility].[address] TACROLIMUSon 08-26-2017 Tacrolimus mass conc (Bld) 4.3 ng/mL Low 5.0-20.0 The [facility] Comment on above: Result Comment: The [employer] Tacrolimus assay is a delayed one-step immunoassayfor the quantitative determination of tacrolimus in human whole bloodusing the chemiluminescent microparticle immunoassay (CMIA) technologywith flexible assay protocols, referred to as Chemiflex. Performed By: #### 4 1000, 21836, 36030, 96272, 17131, 73862 ####[facility].[address] URIC ACID BLOODon 08-26-2017 Urate mass conc 4.6 mg/dL Normal 2.3-6.6 The [facility] Comment on above: Performed By: #### 4 1000, 66582, 09549, 77458, 25152, 36155 ####[facility].[address] CBC W/DIFFon 07-23-2017 ABS BASOPHILS 0.0 10*3/uL Normal 0.0-0.2 The [facility] Comment on above: Performed By: #### 4 1000, 56699, 12130, 22567, 21177, 04545 ####[facility].[address] ABS IMM GRANS 0.0 10*3/uL Normal 0.0-0.2 The [facility] Comment on above: Performed By: #### 4 1000, 11256, 05604, 60345, 62744, 64186 ####[facility].[address] ABS NEUTROPHILS 4.4 10*3/uL Normal 1.6-7.6 The [facility] Comment on above: Performed By: #### 4 1000, 09412, 88709, 81679, 66166, 86915 ####[facility].[address] Basophils Auto #/vol (Bld) 0.2 % Normal 0.0-1.0 The [facility] Comment on above: Performed By: #### 4 1000, 90531, 05650, 32345, 58039, 10795 ####[facility].[address] Eosinophils Auto #/vol (Bld) 0.1 10*3/uL Normal 0.0-0.5 The [facility] Comment on above: Performed By: #### 4 1000, 92421, 36825, 31869, 72388, 84161 ####[facility].[address] Eosinophils/100 WBC Auto (Bld) 2.1 % Normal 0.0-6.0 The [facility] Comment on above: Performed By: #### 4 1000, 18459, 25298, 82960, 54546, 09431 ####[facility].[address] Erythrocyte distribution width Auto Ratio (RBC) 13.7 % Normal 11.5-15.0 The [facility] Comment on above: Performed By: #### 4 1000, 82909, 82602, 03299, 03371, 14814 ####[facility].[address] Hematocrit Auto Volume Fraction (Bld) 44.4 % Normal 36.0-45.0 The [facility] Comment on above: Performed By: #### 4 1000, 62150, 20025, 02301, 62790, 03519 ####[facility].[address] Hemoglobin mass conc (Bld) 14.7 g/dL Normal 12.0-15.0 The [facility] Comment on above: Performed By: #### 4 1000, 92306, 72896, 89870, 62975, 45690 ####[facility].[address] IMMATURE GRANS 0.5 % Normal 0.0-1.0 The [facility] Comment on above: Performed By: #### 4 1000, 22712, 14496, 94098, 55686, 51598 ####[facility].[address] Lymphocytes Auto #/vol (Bld) 1.0 10*3/uL Low 1.2-4.0 The [facility] Comment on above: Performed By: #### 4 1000, 62028, 22717, 26576, 25843, 03687 ####[facility].[address] Lymphocytes/100 WBC Auto (Bld) 15.5 % Low 20.0-45.0 The [facility] Comment on above: Performed By: #### 4 1000, 49379, 51658, 11903, 71765, 54391 ####[facility].[address] MCH Auto Entitic mass (RBC) 28.9 pg Normal 27.0-33.0 The [facility] Comment on above: Performed By: #### 4 1000, 11990, 21837, 02134, 16813, 71456 ####[facility] MCHC Auto mass conc (RBC) 33.1 g/dL Normal 32.0-35.0 The [facility] Comment on above: Performed By: #### 4 1000, 29836, 47263, 38409, 00901, 62262 ####[facility] MCV Auto Entitic volume (RBC) 87.4 fL Normal 82.0-98.0 The [facility] Comment on above: Performed By: #### 4 1000, 96061, 90316, 31704, 34190, 24755 ####[facility] Monocytes Auto #/vol (Bld) 0.8 10*3/uL Normal 0.1-1.0 The [facility] Comment on above: Performed By: #### 4 1000, 08622, 15934, 95057, 15363, 24253 ####[facility] MONOS 12.3 % High 5.0-12.0 The [facility] Comment on above: Performed By: #### 4 1000, 77828, 97460, 33422, 89717, 28120 ####[facility] Neutrophils/100 WBC Auto (Bld) 69.4 % Normal 40.0-72.0 The [facility] Comment on above: Performed By: #### 4 1000, 90396, 72845, 15124, 27197, 49866 ####[facility] Nucleated RBC/100 WBC Ratio (Bld) 0 % Normal 0-0 The [facility] Comment on above: Performed By: #### 4 1000, 25742, 69813, 05386, 39391, 16557 ####[facility].[address] PLAT CNT 218 10*3/uL Normal 150-400 The [facility] Comment on above: Performed By: #### 4 1000, 41370, 93665, 43178, 69470, 08490 ####[facility].[address] RBC Auto #/vol (Bld) 5.08 10*6/uL High 3.80-5.[address] [facility] Comment on above: Performed By: #### 4 1000, 44812, 37667, 17324, 25574, 46498 ####[facility].[address] WBC Auto #/vol (Bld) 6.3 10*3/uL Normal 4.0-10.6 [facility] Comment on above: Performed By: #### 4 1000, 85319, 06910, 37148, 05846, 05210 ####[facility].[address] COMP METABOLIC PANELon 07-23 Albumin mass conc 4.2 g/dL Normal 3.5-5.7 The [facility] Comment on above: Performed By: #### 4 1000, 72158, 30755, 26934, 43885, 80129 ####[facility].[address] ALKALINE PHOSPH 113 IU/L High 34-104 The [facility] Comment on above: Performed By: #### 4 1000, 02233, 08354, 86402, 76390, 48581 ####[facility] [place] [address], [place] ALT enzyme act/vol 23 U/L Normal 7-52 The [facility] Comment on above: Performed By: #### 4 1000, 21089, 24656, 40013, 28208, 62472 ####[facility] [place] [address], [place] AST enzyme act/vol 25 U/L Normal 13-39 The [facility] Comment on above: Performed By: #### 4 1000, 67628, 27209, 07629, 21798, 08304 ####[facility] [place] [address], [facility] Bilirubin mass conc 0.6 mg/dL Normal 0.3-1.0 The [facility] Comment on above: Performed By: #### 4 1000, 27883, 79846, 75179, 37128, 38001 ####[facility] [place] [address], [place] Calcium mass conc 9.6 mg/dL Normal 8.6-10.3 The [facility] Comment on above: Performed By: #### 4 1000, 17867, 15874, 21499, 31267, 99005 ####[facility] [place] [address], [place] Chloride molar conc 104 mmol/L Normal 98-107 The [facility] Comment on above: Performed By: #### 4 1000, 21883, 76146, 69967, 01879, 84413 ####[facility] [place] [address], [place] CO2 molar conc 25 mmol/L Normal 21-31 The [facility] Comment on above: Performed By: #### 4 1000, 99015, 26028, 85171, 62371, 10995 ####[facility] [place] [address], [facility] Creatinine mass conc 0.80 mg/dL Normal 0.60-1.20 The [facility] Comment on above: Performed By: #### 4 1000, 71485, 76595, 12912, 91460, 80434 ####[facility] [place] [address], [facility] GFR/1.73 sq M predicted among blacks MDRD vol rate/area (S/P/Bld) mL/min/{1.73_m2} Normal >60 The [facility] Comment on above: Performed By: #### 4 1000, 39353, 66034, 49401, 40517, 79843 ####[facility] [place] [address], [facility] GFR/1.73 sq M predicted among non-blacks MDRD vol rate/area (S/P/Bld) mL/min/{1.73_m2} Normal >60 The [facility] Comment on above: Performed By: #### 4 1000, 98627, 67597, 38064, 18633, 76238 ####[facility] [place] [address], [facility] Glucose mass conc 91 mg/dL Normal 70-100 The [facility] Comment on above: Performed By: #### 4 1000, 39543, 86440, 33621, 76071, 27755 ####[facility] [place] [address], [facility] Potassium molar conc 4.0 mmol/L Normal 3.5-5.1 The [facility] Comment on above: Performed By: #### 4 1000, 78129, 65545, 70300, 82802, 90564 ####[facility] [place] [address], [facility] Protein mass conc 6.8 g/dL Normal 6.0-8.3 The [facility] Comment on above: Performed By: #### 4 1000, 19595, 26599, 80740, 39167, 07234 ####[facility] Sodium molar conc 140 mmol/L Normal 136-145 The [facility] Comment on above: Performed By: #### 4 1000, 63765, 04370, 65502, 54884, 21222 ####[facility] Urea nitrogen mass conc 16 mg/dL Normal 7-25 The [facility] Comment on above: Performed By: #### 4 1000, 30814, 78373, 52473, 27543, 10165 ####[facility] DIRECT BILIon 07-23-2017 Bilirubin.direct mass conc 0.2 mg/dL Normal 0.0-0.2 [facility] Comment on above: Performed By: #### 4 1000, 39872, 71071, 03649, 80329, 23378 ####[facility].[address] EVEROLIMUS 68616at 8 EVEROLIMUS 5.3 ng/mL Normal [facility] Comment on above: Result Comment: [...] determined by [facility]. See Compliance Statement B: [employer]/CSPerformed by [employer],[address] [facility]INTERM[facility],[place] [address] hbh.[employer], Leonid Antonio MD - Lab. Director LIPID PROFILEon 07-23-2017 Cholesterol in HDL mass conc 45 mg/dL Normal 23-92 The [facility] Comment on above: Result Comment: Slig ht variation in normal range could be due to gender and/or age.HDL CHOLESTEROL REFERENCE RANGE:20 years and older Cardiovascular Risk> or =60 mg/dL [id number] TO 59 mg/dL Low Risk<40 mg/dL High Risk Performed By: #### 4 1000, [id number], 24228, 46505, [id number], 37459 ####[facility] [place] [address], [place] Cholesterol in LDL mass conc 79 mg/dL Normal 0-130 [facility] Comment on above: Result Comment: LDL IS A CALCULATIONLDL IS ONLY VALID IF THE TRIG IS LESS THAN 400. Performed By: #### 4 1000, [id number], 42922, 71143, 62210, [id number] ####[facility] [place] [address], [place] Cholesterol mass conc 141 mg/dL Normal 120-200 [facility] Comment on above: Result Comment: CHOL ESTEROL REFERENCE RANGE:20 YEARS AND OLDER CARDIOVASCULAR RISKLess than 200 mg/dl Low Vene440 to 239 mg/dl Borderline Axzf539 mg/dl and greater High Risk Performed By: #### 4 1000, 22309, 32239, 07375, 88310, 46180 ####[facility] [place] [address], [place] Cholesterol.total/Cho lesterol in HDL mass ratio 3.1 {ratio} Normal .0-4.5 [facility] Comment on above: Performed By: #### 4 1000, 00502, 22582, 08057, 91778, 47763 ####[facility] [facility] [place] [facility].[address] NON-HDL CHOLESTEROL 96 mg/dL Normal The [facility] Comment on above: Performed By: #### 4 1000, 31384, 32992, 84940, 30040, 96943 ####[facility]3000 [facility] [place] [facility].[address] Triglyceride mass conc 83 mg/dL Normal 40-149 [facility] Comment on above: Result Comment: TRIG LYCERIDE REFERENCE RANGE:20 YEARS AND OLDER CARDIOVASCULAR RISKLESS THAN 150 mg/dl LOW [id number] TO 199 mg/dl BORDERLINE [id number] mg/dl AND GREATER HIGH RISK Performed By: #### 4 1000, 48226, 82768, 74065, 45789, 54383 ####[facility] [facility] [place] [facility].[address] VLDL CHOL 17 mg/dL Normal 0-40 [facility] Comment on above: Performed By: #### 4 1000, 12163, 61247, 67733, 17608, 75669 ####[facility] [facility] [place] [facility].[address] MAGNESIUM BLOODon 07-23-2017 Magnesium mass conc 2.0 mg/dL Normal 1.9-2.7 The [facility] Comment on above: Performed By: #### 4 1000, 26042, 71797, 40702, 32129, 45814 ####[facility] [place] [address], [facility] PHOSPHORUS BLOODon 8 Phosphate mass conc 4.0 mg/dL Normal 2.5-5.0 [facility] Comment on above: Performed By: #### 4 1000, 20305, 82866, 98400, 42260, 13201 ####[facility] TACROLIMUSon 07-23-2017 Tacrolimus mass conc (Bld) 4.6 ng/mL Low 5.0-20.0 [facility] Comment on above: Result Comment: The [employer] Tacrolimus assay is a delayed one-step immunoassayfor the quantitative determination of tacrolimus in human whole bloodusing the chemiluminescent microparticle immunoassay (CMIA) technologywith flexible assay protocols, referred to as Chemiflex. Performed By: #### 4 1000, 24111, 25563, 77004, 60792, 46073 ####[facility] URIC ACID BLOODon 07-23-2017 Urate mass conc 4.7 mg/dL Normal 2.3-6.6 The [facility] Comment on above: Performed By: #### 4 1000, 98068, 98738, 31176, 24625, 27602 ####[facility] CBC W/DIFFon 06-20-2017 ABS BASOPHILS 0.0 10*3/uL Normal 0.0-0.2 The [facility] Comment on above: Performed By: #### 4 1000, 18895, 85535, 09302, 92484, 27940 ####[facility] ABS IMM GRANS 0.0 10*3/uL Normal 0.0-0.2 The [facility] Comment on above: Performed By: #### 4 1000, 40955, 24683, 03516, 24200, 16202 ####[facility] ABS NEUTROPHILS 4.2 10*3/uL Normal 1.6-7.6 The [facility] Comment on above: Performed By: #### 4 1000, 32886, 89342, 94170, 23168, 09049 ####[facility] Basophils Auto #/vol (Bld) 0.2 % Normal 0.0-1.0 [facility] Comment on above: Performed By: #### 4 1000, 25863, 77508, 16092, 56462, 02915 ####[facility] [place] [address], [facility] Eosinophils Auto #/vol (Bld) 0.1 10*3/uL Normal 0.0-0.5 [facility] Comment on above: Performed By: #### 4 1000, 28254, 35605, 10817, 75534, 05278 ####[facility] Eosinophils/100 WBC Auto (Bld) 1.5 % Normal 0.0-6.0 [facility] Comment on above: Performed By: #### 4 1000, 43096, 75972, 12872, 44148, 44766 ####[facility] Erythrocyte distribution width Auto Ratio (RBC) 13.4 % Normal 11.5-15.0 [facility] Comment on above: Performed By: #### 4 1000, 16242, 97569, 62149, 80113, 18372 ####[facility] Hematocrit Auto Volume Fraction (Bld) 44.9 % Normal 36.0-45.0 The [facility] Comment on above: Performed By: #### 4 1000, 48826, 11442, 95697, 67782, 49766 ####[facility] Hemoglobin mass conc (Bld) 14.9 g/dL Normal 12.0-15.0 [facility] Comment on above: Performed By: #### 4 1000, 06260, 80472, 10081, 78431, 38788 ####[facility] IMMATURE GRANS 0.2 % Normal 0.0-1.0 The [facility] Comment on above: Performed By: #### 4 1000, 20078, 30554, 58858, 07802, 04175 ####[facility] Lymphocytes Auto #/vol (Bld) 1.1 10*3/uL Low 1.2-4.0 [facility] Comment on above: Performed By: #### 4 1000, 71835, 50174, 15749, 10072, 25309 ####[place] [address] [address] Lymphocytes/100 WBC Auto (Bld) 17.4 % Low 20.0-45.0 [facility] Comment on above: Performed By: #### 4 1000, 98755, 06049, 49118, 01619, 39654 ####[facility] MCH Auto Entitic mass (RBC) 29.2 pg Normal 27.0-33.0 [facility] Comment on above: Performed By: #### 4 1000, 19555, 38278, 24693, 50645, 01245 ####[facility] MCHC Auto mass conc (RBC) 33.2 g/dL Normal 32.0-35.0 [facility] Comment on above: Performed By: #### 4 1000, 91883, 36009, 16497, 21163, 83695 ####[facility] MCV Auto Entitic volume (RBC) 87.9 fL Normal 82.0-98.0 [facility] Comment on above: Performed By: #### 4 1000, 06595, 73549, 24389, 76320, 04503 ####[facility] Monocytes Auto #/vol (Bld) 0.7 10*3/uL Normal 0.1-1.0 [facility] Comment on above: Performed By: #### 4 1000, 24437, 69483, 68109, 82854, 11546 ####[facility] MONOS 11.3 % Normal 5.0-12.0 [facility] Comment on above: Performed By: #### 4 1000, 54913, 90364, 73249, 87902, 01085 ####[facility] Neutrophils/100 WBC Auto (Bld) 69.4 % Normal 40.0-72.0 [facility] Comment on above: Performed By: #### 4 1000, 39814, 81653, 05094, 98023, 31736 ####[facility] Nucleated RBC/100 WBC Ratio (Bld) 0 % Normal 0-0 [facility] Comment on above: Performed By: #### 4 1000, 14949, 21633, 78476, 84883, 77551 ####[facility] PLAT CNT 198 10*3/uL Normal 150-400 The [facility] Comment on above: Performed By: #### 4 1000, 18179, 82027, 49559, 73192, 34249 ####[facility] [place] [address], [facility] RBC Auto #/vol (Bld) 5.11 10*6/uL High 3.80-5.00 Th [facility] Comment on above: Performed By: #### 4 1000, 45389, 61214, 91000, 58704, 09261 ####[facility] WBC Auto #/vol (Bld) 6.0 10*3/uL Normal 4.0-10.6 [facility] Comment on above: Performed By: #### 4 1000, 56008, 36662, 99208, 78796, 10036 ####[facility] COMP METABOLIC PANELon 06-20 Albumin mass conc 4.4 g/dL Normal 3.5-5.7 The [facility] Comment on above: Performed By: #### 4 1000, 46128, 26422, 65622, 51446, 19625 ####[facility] ALKALINE PHOSPH 133 IU/L High 34-104 The [facility] Comment on above: Performed By: #### 4 1000, 56381, 88419, 62818, 43372, 59246 ####[facility] ALT enzyme act/vol 16 U/L Normal 7-52 The [facility] Comment on above: Performed By: #### 4 1000, 66229, 64810, 07463, 68164, 65219 ####[facility] AST enzyme act/vol 21 U/L Normal 13-39 The [facility] Comment on above: Performed By: #### 4 1000, 85919, 60517, 82357, 90472, 75239 ####[facility] Bilirubin mass conc 0.8 mg/dL Normal 0.3-1.0 The [facility] Comment on above: Performed By: #### 4 1000, 82144, 11401, 61138, 77252, 90434 ####[facility] [place] [address], [place] Calcium mass conc 10.0 mg/dL Normal 8.6-10.3 [facility] Comment on above: Performed By: #### 4 1000, 41286, 79572, 61060, 91584, 47399 ####[facility] [place] [address], [place] Chloride molar conc 106 mmol/L Normal 98-107 The [facility] Comment on above: Performed By: #### 4 1000, 78919, 45822, 69756, 09398, 17622 ####[facility] [place] [address], [place] CO2 molar conc 27 mmol/L Normal 21-31 The [facility] Comment on above: Performed By: #### 4 1000, 48257, 13958, 14388, 02471, 03127 ####[facility] [place] [address], [place] Creatinine mass conc 0.74 mg/dL Normal 0.60-1.20 [facility] Comment on above: Performed By: #### 4 1000, 36263, 76216, 23468, 12904, 51957 ####[facility] [place] [address], [place] GFR/1.73 sq M predicted among blacks MDRD vol rate/area (S/P/Bld) mL/min/{1.73_m2} Normal >60 The [facility] Comment on above: Performed By: #### 4 1000, 62520, 16834, 71303, 30927, 88901 ####[facility] [place] [address], [facility] GFR/1.73 sq M predicted among non-blacks MDRD vol rate/area (S/P/Bld) mL/min/{1.73_m2} Normal >60 The [facility] Comment on above: Performed By: #### 4 1000, 95106, 67486, 08417, 02455, 63675 ####[facility] [place] [address], [facility] Glucose mass conc 95 mg/dL Normal 70-100 The [facility] Comment on above: Performed By: #### 4 1000, 68439, 58864, 92344, 27747, 99305 ####[facility] [place] [address], [facility] Potassium molar conc 3.8 mmol/L Normal 3.5-5.1 [facility] Comment on above: Performed By: #### 4 1000, 97492, 27181, 96791, 63989, 38017 ####[facility] [place] [address], [facility] Protein mass conc 7.3 g/dL Normal 6.0-8.3 [facility] Comment on above: Performed By: #### 4 1000, 43379, 88018, 54012, 79978, 23487 ####[facility] [place] [address], [facility] Sodium molar conc 137 mmol/L Normal 136-145 The [facility] Comment on above: Performed By: #### 4 1000, 45571, 24974, 27674, 24595, 57848 ####[facility] [place] [address], [facility] Urea nitrogen mass conc 16 mg/dL Normal 7-25 [facility] Comment on above: Performed By: #### 4 1000, 20931, 08481, 05005, 40854, 84338 ####[facility] [place] [address], [facility] DIRECT BILIon 06-20-2017 Bilirubin.direct mass conc 0.1 mg/dL Normal 0.0-0.2 [facility] Comment on above: Performed By: #### 4 1000, 15446, 68456, 33790, 00761, 57228 ####[facility] [place] [address], [facility] EVEROLIMUS 30201mq 8 EVEROLIMUS 6.7 ng/mL Normal [facility] Comment on above: Result Comment: Ther apeutic [...] the transplantcenter.Test developed and characteristics determined by [facility]. See Compliance Statement B: [employer]formed by [employer],[address] [place] [address] byl.[employer], Leonid Antonio MD - Lab. Director LIPID PROFILEon 06-20-2017 Cholesterol in HDL mass conc 45 mg/dL Normal - [facility] Comment on above: Result Comment: Slig ht variation in normal range could be due to gender and/or age.HDL CHOLESTEROL REFERENCE RANGE:20 years and older Cardiovascular Risk> or =60 mg/dL Oolkgdycc07 TO 59 mg/dL Low Risk<40 mg/dL High Risk Performed By: #### 4 1000, 50458, 66889, 77252, 36248, 31348 ####[facility] [place] [address], [facility] Cholesterol in LDL mass conc 58 mg/dL Normal 0-130 [facility] Comment on above: Result Comment: LDL IS A CALCULATIONLDL IS ONLY VALID IF THE TRIG IS LESS THAN 400. Performed By: #### 4 1000, 15683, 25515, 57741, 64185, 60010 ####[facility] [place] [address], [facility] Cholesterol mass conc 126 mg/dL Normal 120-200 [facility] Comment on above: Result Comment: CHOL ESTEROL REFERENCE RANGE:20 YEARS AND OLDER CARDIOVASCULAR RISKLess than 200 mg/dl Low Cfye250 to 239 mg/dl Borderline Hfvf639 mg/dl and greater High Risk Performed By: #### 4 1000, 36166, 82473, 64574, 41312, 84427 ####[facility] [place] [address], [facility] Cholesterol.total/Cho lesterol in HDL mass ratio 2.8 {ratio} Normal .0-4.5 [facility] Comment on above: Performed By: #### 4 1000, 00458, 66094, 07670, 75044, 93001 ####[facility] [facility] [place] [address], [facility] NON-HDL CHOLESTEROL 81 mg/dL Normal The [facility] Comment on above: Performed By: #### 4 1000, 15949, 46534, 47352, 13071, 40074 ####[facility] [facility] [place] [address], [facility] Triglyceride mass conc 113 mg/dL Normal 40-149 [facility] Comment on above: Result Comment: TRIG LYCERIDE REFERENCE RANGE:20 YEARS AND OLDER CARDIOVASCULAR RISKLESS THAN 150 mg/dl LOW [id number] TO 199 mg/dl BORDERLINE [id number] mg/dl AND GREATER HIGH RISK Performed By: #### 4 1000, 06088, 37126, 97811, 36497, 94992 ####[facility]3000 [facility].[address] VLDL CHOL 23 mg/dL Normal 0-40 [facility] Comment on above: Performed By: #### 4 1000, 15277, 92094, 45015, 25156, 18219 ####[facility] [facility] [place] [facility].[address] MAGNESIUM BLOODon 06-20-2017 Magnesium mass conc 1.9 mg/dL Normal 1.9-2.7 The [facility] Comment on above: Performed By: #### 4 1000, 36259, 94682, 60378, 26481, 53188 ####[facility]3000 [facility].[address] PHOSPHORUS BLOODon 8 Phosphate mass conc 3.1 mg/dL Normal 2.5-5.0 [facility] Comment on above: Performed By: #### 4 1000, 70437, 96706, 29759, 69551, 02430 ####[facility]3000 [facility].[address] TACROLIMUSon 06-20-2017 Tacrolimus mass conc (Bld) 4.2 ng/mL Low 5.0-20.0 [facility] Comment on above: Result Comment: The [employer] Tacrolimus assay is a delayed one-step immunoassayfor the quantitative determination of tacrolimus in human whole bloodusing the chemiluminescent microparticle immunoassay (CMIA) technologywith flexible assay protocols, referred to as Chemiflex. Performed By: #### 4 1000, 17735, 41600, 23200, 29989, 80423 ####[facility] [facility] [place] [facility].[address] URIC ACID BLOODon 06-20-2017 Urate mass conc 4.3 mg/dL Normal 2.3-6.6 The [facility] Comment on above: Performed By: #### 4 1000, 57116, 88633, 90470, 75064, 79305 ####[facility]3000 [facility].[address] BK VIRUS QUANTITATION PCR BL OODon 05-27-2017 BKV QUANT PCR Not detected Normal The [facility] Comment on above: Result Comment: Meth od: BK virus was measured by quantitative polymerase chain reactionusing a TaqMan probe targeting the polyomavirus BK [place]-1 gene.The lower limit of quantitation of the assay is 500 copies of BK genomeper milliliter of plasma or urine, and any detectable BK DNA below thatlevel is reported as: Detected, <500 copies/ml. Serial BK virusmeasurement can be used to monitor disease activity. (Reference:Kelsie simpson. J CLIN MICRO 2004; 42:3994-2639).This test was developed and its performance characteristics determinedby the [facility]. It has not been approvedby the [place] Food and Drug Administration. However, such approval is notrequired for clinical implementation, and test results have been shownto be clinically useful. This laboratory is CAP accredited and CLIAcertified to perform high complexity testing. Performed By: #### 4 1000, 93942, 76751, 19447, 25407, 42758 ####[facility]3000 [facility].[address] LOG 10 COPIES Not detected Normal The [facility] Comment on above: Performed By: #### 4 1000, 47645, 78501, 16841, 67481, 25651 ####[facility]3000 [facility].[address] CBC W/DIFFon 05-27-2017 ABS BASOPHILS 0.0 10*3/uL Normal 0.0-0.2 The [facility] Comment on above: Performed By: #### 4 1000, 77720, 33344, 26409, 81527, 44289 ####[facility]3000 [facility].[address] ABS IMM GRANS 0.0 10*3/uL Normal 0.0-0.2 The [facility] Comment on above: Performed By: #### 4 1000, 87763, 15099, 43666, 64448, 32147 ####[facility]3000 [facility].[address] ABS NEUTROPHILS 4.8 10*3/uL Normal 1.6-7.6 The [facility] Comment on above: Performed By: #### 4 1000, 42715, 67545, 92545, 00249, 59181 ####[facility]3000 [facility].[address] Basophils Auto #/vol (Bld) 0.0 % Normal 0.0-1.0 [facility] Comment on above: Performed By: #### 4 1000, 58126, 81798, 77295, 18558, 73386 ####[facility]3000 [facility].[address] Eosinophils Auto #/vol (Bld) 0.1 10*3/uL Normal 0.0-0.5 [facility] Comment on above: Performed By: #### 4 1000, 45736, 05128, 70715, 51139, 72041 ####[facility]3000 [facility].[address] Eosinophils/100 WBC Auto (Bld) 1.1 % Normal 0.0-6.0 [facility] Comment on above: Performed By: #### 4 1000, 49101, 10944, 10945, 58729, 90330 ####[facility]3000 [facility].[address] Erythrocyte distribution width Auto Ratio (RBC) 13.5 % Normal 11.5-15.0 [facility] Comment on above: Performed By: #### 4 1000, 65315, 53246, 93114, 57886, 80355 ####[facility] Hematocrit Auto Volume Fraction (Bld) 46.1 % High 36.0-45.0 The [facility] Comment on above: Performed By: #### 4 1000, 68030, 93222, 52232, 62659, 89890 ####[address] Hemoglobin mass conc (Bld) 15.0 g/dL Normal 12.0-15.0 [facility] Comment on above: Performed By: #### 4 1000, 34916, 25242, 08885, 30616, 81377 ####[address] IMMATURE GRANS 0.3 % Normal 0.0-1.0 The [facility] Comment on above: Performed By: #### 4 1000, 77550, 96640, 06684, 22627, 15980 ####[address] Lymphocytes Auto #/vol (Bld) 1.0 10*3/uL Low 1.2-4.0 [facility] Comment on above: Performed By: #### 4 1000, 73353, 89926, 40966, 89878, 99370 ####[address] Lymphocytes/100 WBC Auto (Bld) 15.7 % Low 20.0-45.0 [facility] Comment on above: Performed By: #### 4 1000, 95653, 19216, 61649, 91944, 85791 ####[address] MCH Auto Entitic mass (RBC) 28.8 pg Normal 27.0-33.0 [facility] Comment on above: Performed By: #### 4 1000, 98224, 79543, 09173, 51960, 61520 ####[facility] MCHC Auto mass conc (RBC) 32.5 g/dL Normal 32.0-35.0 [facility] Comment on above: Performed By: #### 4 1000, 36419, 10408, 37793, 22133, 67272 ####[facility] MCV Auto Entitic volume (RBC) 88.7 fL Normal 82.0-98.0 [facility] Comment on above: Performed By: #### 4 1000, 70882, 12601, 38486, 26219, 20392 ####[facility] Monocytes Auto #/vol (Bld) 0.8 10*3/uL Normal 0.1-1.0 [facility] Comment on above: Performed By: #### 4 1000, 12080, 58727, 33485, 89286, 23208 ####[facility].[address] MONOS 11.4 % Normal 5.0-12.0 [facility] Comment on above: Performed By: #### 4 1000, 58427, 48436, 70300, 24097, 45529 ####[facility] Neutrophils/100 WBC Auto (Bld) 71.5 % Normal 40.0-72.0 [facility] Comment on above: Performed By: #### 4 1000, 55306, 90800, 51935, 87655, 43858 ####[facility] Nucleated RBC/100 WBC Ratio (Bld) 0 % Normal 0-0 [facility] Comment on above: Performed By: #### 4 1000, 97522, 00858, 87658, 02205, 34840 ####[facility] [place] [address], [facility] PLAT CNT 199 10*3/uL Normal 150-400 The [facility] Comment on above: Performed By: #### 4 1000, 74160, 00773, 15896, 14560, 47017 ####[facility] RBC Auto #/vol (Bld) 5.20 10*6/uL High 3.80-5.[address] [facility] Comment on above: Performed By: #### 4 1000, 82915, 74267, 33226, 81523, 75077 ####[facility] WBC Auto #/vol (Bld) 6.6 10*3/uL Normal 4.0-10.6 [facility] Comment on above: Performed By: #### 4 1000, 09044, 04336, 25695, 59158, 87359 ####[facility] COMP METABOLIC PANELon 05-27 Albumin mass conc 4.6 g/dL Normal 3.5-5.7 [facility] Comment on above: Performed By: #### 4 1000, 92797, 03606, 98955, 69999, 77784 ####[facility] ALKALINE PHOSPH 105 IU/L High 34-104 The [facility] Comment on above: Performed By: #### 4 1000, 24241, 58457, 90364, 10036, 31908 ####[facility] ALT enzyme act/vol 20 U/L Normal 7-52 The [facility] Comment on above: Performed By: #### 4 1000, 82262, 92140, 31912, 74950, 72612 ####[facility] [place] [address], [facility] AST enzyme act/vol 23 U/L Normal 13-39 The [facility] Comment on above: Performed By: #### 4 1000, 64537, 72584, 78566, 61118, 35830 ####[facility] [place] [address], [facility] Bilirubin mass conc 0.6 mg/dL Normal 0.3-1.0 The [facility] Comment on above: Performed By: #### 4 1000, 66361, 96989, 24941, 48886, 24518 ####[facility] [facility] [place] [address], [facility] Calcium mass conc 9.8 mg/dL Normal 8.6-10.3 [facility] Comment on above: Performed By: #### 4 1000, 80736, 02101, 65302, 42380, 11620 ####[facility]3000 [facility] [place] [address], [facility] Chloride molar conc 106 mmol/L Normal 98-107 The [facility] Comment on above: Performed By: #### 4 1000, 35773, 86044, 61039, 86341, 63618 ####[facility] [facility] [place] [address], [facility] CO2 molar conc 30 mmol/L Normal 21-31 [facility] Comment on above: Performed By: #### 4 1000, 03000, 22131, 51288, 53055, 73477 ####[facility] [place] [address], [facility] Creatinine mass conc 0.80 mg/dL Normal 0.60-1.20 [facility] Comment on above: Performed By: #### 4 1000, 91998, 94029, 73014, 70674, 91229 ####[facility] [place] [address], [place] GFR/1.73 sq M predicted among blacks MDRD vol rate/area (S/P/Bld) mL/min/{1.73_m2} Normal >60 The [facility] Comment on above: Performed By: #### 4 1000, 92326, 15937, 48107, 49639, 40465 ####[facility] [place] [address], [place] GFR/1.73 sq M predicted among non-blacks MDRD vol rate/area (S/P/Bld) mL/min/{1.73_m2} Normal >60 The [facility] Comment on above: Performed By: #### 4 1000, 29706, 70422, 92655, 19887, 46192 ####[facility] [place] [address], [facility] Glucose mass conc 90 mg/dL Normal 70-100 The [facility] Comment on above: Performed By: #### 4 1000, 31014, 42078, 71462, 36664, 78853 ####[facility] [place] [address], [place] Potassium molar conc 4.0 mmol/L Normal 3.5-5.1 The [facility] Comment on above: Performed By: #### 4 1000, 42053, 13362, 05476, 27947, 18568 ####[facility] [place] [address], [place] Protein mass conc 6.8 g/dL Normal 6.0-8.3 The [facility] Comment on above: Performed By: #### 4 1000, 98126, 47208, 87702, 29668, 99583 ####[facility] [place] [address], [place] Sodium molar conc 138 mmol/L Normal 136-145 The [facility] Comment on above: Performed By: #### 4 1000, 30384, 41491, 17025, 80749, 91129 ####[facility] Urea nitrogen mass conc 14 mg/dL Normal 7-25 The [facility] Comment on above: Performed By: #### 4 1000, 63826, 31974, 90297, 04191, 03147 ####[facility] DIRECT BILIon 05-27-2017 Bilirubin.direct mass conc 0.1 mg/dL Normal 0.0-0.2 [facility] Comment on above: Performed By: #### 4 1000, 63680, 78579, 12083, 11638, 13834 ####[facility] EVEROLIMUS 56581ez 8 EVEROLIMUS 5.6 ng/mL Normal The [facility] Comment on above: Result Comment: Ther apeutic [...] the transplantcenter.Test developed and characteristics determined by [facility]. See Compliance Statement B: [employer]SP[employer]formed by [employer],[address], [place] [address] hmx.[employer], Leonid Antonio MD - Lab. Director HEMOGLOBIN A1Con 05-27-2017 Glucose mass conc 108 mg/dL Normal 70-126 [facility] Comment on above: Performed By: #### 4 1000, 07476, 50160, 50586, 27882, 57108 ####[facility] [place] [address], [facility] Hemoglobin A1c/Hemoglobin.total mass fraction (Bld) 5.4 % Normal 4.0-6.0 The [facility] Comment on above: Performed By: #### 4 1000, 36144, 86781, 55658, 32193, 70622 ####[facility] [place] [address], [facility] LIPID PROFILEon 05-27-2017 Cholesterol in HDL mass conc 39 mg/dL Normal 23-92 [facility] Comment on above: Result Comment: Slig ht variation in normal range could be due to gender and/or age.HDL CHOLESTEROL REFERENCE RANGE:20 years and older Cardiovascular Risk> or =60 mg/dL Wihhmkfap14 TO 59 mg/dL Low Risk<40 mg/dL High Risk Performed By: #### 4 1000, 49552, 63579, 84363, 96946, 84162 ####[facility] [place] [address], [place] Cholesterol in LDL mass conc 52 mg/dL Normal 0-130 The [facility] Comment on above: Result Comment: LDL IS A CALCULATIONLDL IS ONLY VALID IF THE TRIG IS LESS THAN 400. Performed By: #### 4 1000, 93651, 65291, 35711, 42541, 82253 ####[facility] [place] [address], [place] Cholesterol mass conc 117 mg/dL Low 120-200 The [facility] Comment on above: Result Comment: CHOL ESTEROL REFERENCE RANGE:20 YEARS AND OLDER CARDIOVASCULAR RISKLess than 200 mg/dl Low Npon931 to 239 mg/dl Borderline Aypv161 mg/dl and greater High Risk Performed By: #### 4 1000, 38816, 08411, 63443, 22003, 84793 ####[facility] Cholesterol.total/Cho lesterol in HDL mass ratio 3.0 {ratio} Normal .0-4.5 The [facility] Comment on above: Performed By: #### 4 1000, 57120, 02105, 09990, 80024, 45861 ####[facility] [facility].[address] NON-HDL CHOLESTEROL 78 mg/dL Normal The [facility] Comment on above: Performed By: #### 4 1000, 82877, 37654, 92768, 24440, 97521 ####[facility] Triglyceride mass conc 131 mg/dL Normal 40-149 The [facility] Comment on above: Result Comment: TRIG LYCERIDE REFERENCE RANGE:20 YEARS AND OLDER CARDIOVASCULAR RISKLESS THAN 150 mg/dl LOW [id number] TO 199 mg/dl BORDERLINE FSYX414 mg/dl AND GREATER HIGH RISK Performed By: #### 4 1000, 45332, 48985, 10152, 93508, 42365 ####[facility] VLDL CHOL 26 mg/dL Normal 0-40 The [facility] Comment on above: Performed By: #### 4 1000, 60295, 05803, 47172, 42170, 88943 ####[facility] MAGNESIUM BLOODon 05-27-2017 Magnesium mass conc 2.1 mg/dL Normal 1.9-2.7 The [facility] Comment on above: Performed By: #### 4 1000, 95991, 08377, 10144, 94346, 71976 ####[facility] [facility] [place] [address], [facility] PHOSPHORUS BLOODon 8 Phosphate mass conc 3.5 mg/dL Normal 2.5-5.0 The [facility] Comment on above: Performed By: #### 4 1000, 14679, 52494, 31382, 26878, 71857 ####[facility]3000 [facility].[address] TACROLIMUSon 05-27-2017 Tacrolimus mass conc (Bld) 4.4 ng/mL Low 5.0-20.0 The [facility] Comment on above: Result Comment: The [employer] Tacrolimus assay is a delayed one-step immunoassayfor the quantitative determination of tacrolimus in human whole bloodusing the chemiluminescent microparticle immunoassay (CMIA) technologywith flexible assay protocols, referred to as Chemiflex. Performed By: #### 4 1000, 00296, 13912, 32468, 06489, 66324 ####[facility] URIC ACID BLOODon 05-27-2017 Urate mass conc 4.6 mg/dL Normal 2.3-6.6 The [facility] Comment on above: Performed By: #### 4 1000, 07210, 52541, 20141, 51914, 90315 ####[facility]3000 [facility].[address] CBC W/DIFFon 04-29-2017 ABS BASOPHILS 0.0 10*3/uL Normal 0.0-0.2 The [facility] Comment on above: Performed By: #### 4 1000, 82003, 90042, 64676, 59808, 14009 ####[facility]3000 [facility].[address] ABS IMM GRANS 0.0 10*3/uL Normal 0.0-0.2 The [facility] Comment on above: Performed By: #### 4 1000, 93403, 12071, 56092, 46020, 46102 ####[facility] ABS NEUTROPHILS 4.6 10*3/uL Normal 1.6-7.6 The [facility] Comment on above: Performed By: #### 4 1000, 63422, 67720, 66014, 79971, 88511 ####[facility] [place] [address], [facility] Basophils Auto #/vol (Bld) 0.3 % Normal 0.0-1.0 The [facility] Comment on above: Performed By: #### 4 1000, 04983, 27100, 59313, 75519, 16642 ####[facility] Eosinophils Auto #/vol (Bld) 0.1 10*3/uL Normal 0.0-0.5 The [facility] Comment on above: Performed By: #### 4 1000, 10379, 51464, 46456, 90306, 05366 ####[facility] Eosinophils/100 WBC Auto (Bld) 1.7 % Normal 0.0-6.0 The [facility] Comment on above: Performed By: #### 4 1000, 38075, 36427, 81535, 14482, 90844 ####[facility] Erythrocyte distribution width Auto Ratio (RBC) 13.7 % Normal 11.5-15.0 The [facility] Comment on above: Performed By: #### 4 1000, 61983, 56915, 21745, 08499, 12358 ####[facility] Hematocrit Auto Volume Fraction (Bld) 45.0 % Normal 36.0-45.0 The [facility] Comment on above: Performed By: #### 4 1000, 92767, 67639, 23819, 67229, 56402 ####[facility] Hemoglobin mass conc (Bld) 14.9 g/dL Normal 12.0-15.0 The [facility] Comment on above: Performed By: #### 4 1000, 25661, 48461, 61857, 44086, 65346 ####[facility]3000 [facility].[address] IMMATURE GRANS 0.3 % Normal 0.0-1.0 The [facility] Comment on above: Performed By: #### 4 1000, 43177, 48080, 20730, 91635, 10232 ####[facility] [facility] [facility].[address] Lymphocytes Auto #/vol (Bld) 0.9 10*3/uL Low 1.2-4.0 The [facility] Comment on above: Performed By: #### 4 1000, 12085, 68570, 37733, 00645, 01756 ####[facility] [facility].[address] Lymphocytes/100 WBC Auto (Bld) 14.2 % Low 20.0-45.0 The [facility] Comment on above: Performed By: #### 4 1000, 70448, 62320, 30789, 37202, 15705 ####[facility] MCH Auto Entitic mass (RBC) 29.4 pg Normal 27.0-33.0 The [facility] Comment on above: Performed By: #### 4 1000, 32688, 41084, 17091, 55886, 96682 ####[facility] [facility].[address] MCHC Auto mass conc (RBC) 33.1 g/dL Normal 32.0-35.0 The [facility] Comment on above: Performed By: #### 4 1000, 79129, 73380, 21701, 74836, 09909 ####[facility] [facility].[address] MCV Auto Entitic volume (RBC) 88.8 fL Normal 82.0-98.0 The [facility] Comment on above: Performed By: #### 4 1000, 77059, 44829, 26654, 38060, 71845 ####[place] [address] [facility].[address] Monocytes Auto #/vol (Bld) 0.8 10*3/uL Normal 0.1-1.0 The [facility] Comment on above: Performed By: #### 4 1000, 65162, 23019, 29034, 09837, 50123 ####[facility]3000 [facility].[address] MONOS 12.2 % High 5.0-12.0 The [facility] Comment on above: Performed By: #### 4 1000, 97472, 94030, 14664, 12593, 69554 ####[place] [address] [facility].[address] Neutrophils/100 WBC Auto (Bld) 71.3 % Normal 40.0-72.0 The [facility] Comment on above: Performed By: #### 4 1000, 12124, 60341, 46286, 04912, 80966 ####[place] [address] [facility].[address] Nucleated RBC/100 WBC Ratio (Bld) 0 % Normal 0-0 The [facility] Comment on above: Performed By: #### 4 1000, 07425, 89015, 54487, 72874, 05423 ####[facility] PLAT CNT 215 10*3/uL Normal 150-400 The [facility] Comment on above: Performed By: #### 4 1000, 11879, 93940, 40811, 31076, 60244 ####[facility] RBC Auto #/vol (Bld) 5.07 10*6/uL High 3.80-5.[address] [facility] Comment on above: Performed By: #### 4 1000, 05100, 21089, 71147, 28167, 43217 ####[facility] WBC Auto #/vol (Bld) 6.5 10*3/uL Normal 4.0-10.6 [facility] Comment on above: Performed By: #### 4 1000, 41861, 34984, 95964, 66741, 62581 ####[facility] COMP METABOLIC PANELon 04-29 Albumin mass conc 4.4 g/dL Normal 3.5-5.7 The [facility] Comment on above: Performed By: #### 4 1000, 83832, 15802, 38132, 16220, 46749 ####[facility] ALKALINE PHOSPH 114 IU/L High 34-104 The [facility] Comment on above: Performed By: #### 4 1000, 14630, 98371, 04298, 47361, 36648 ####[facility] ALT enzyme act/vol 15 U/L Normal 7-52 The [facility] Comment on above: Performed By: #### 4 1000, 58254, 13082, 72247, 86029, 64881 ####[facility] [place] [address], [facility] AST enzyme act/vol 19 U/L Normal 13-39 The [facility] Comment on above: Performed By: #### 4 1000, 04865, 31815, 77309, 11964, 52246 ####[facility] [place] [address], [place] Bilirubin mass conc 0.7 mg/dL Normal 0.3-1.0 The [facility] Comment on above: Performed By: #### 4 1000, 83273, 00177, 52116, 95278, 96345 ####[facility] [place] [address], [place] Calcium mass conc 9.6 mg/dL Normal 8.6-10.3 [facility] Comment on above: Performed By: #### 4 1000, 97292, 48179, 94381, 38967, 70788 ####[facility] [place] [address], [place] Chloride molar conc 103 mmol/L Normal 98-107 The [facility] Comment on above: Performed By: #### 4 1000, 83609, 37450, 28178, 95972, 22998 ####[facility] [place] [address], [place] CO2 molar conc 29 mmol/L Normal 21-31 The [facility] Comment on above: Performed By: #### 4 1000, 56496, 76383, 62807, 70745, 44828 ####[facility] [place] [address], [place] Creatinine mass conc 0.79 mg/dL Normal 0.60-1.20 The [facility] Comment on above: Performed By: #### 4 1000, 14786, 70829, 13383, 42553, 85726 ####[facility] [place] [address], [place] GFR/1.73 sq M predicted among blacks MDRD vol rate/area (S/P/Bld) mL/min/{1.73_m2} Normal >60 The [facility] Comment on above: Performed By: #### 4 1000, 48020, 15959, 91433, 43758, 43130 ####[facility] [place] [address], [facility] GFR/1.73 sq M predicted among non-blacks MDRD vol rate/area (S/P/Bld) mL/min/{1.73_m2} Normal >60 The [facility] Comment on above: Performed By: #### 4 1000, 87669, 97599, 98095, 54696, 78779 ####[facility] [place] [address], [facility] Glucose mass conc 90 mg/dL Normal 70-100 The [facility] Comment on above: Performed By: #### 4 1000, 69824, 96415, 00128, 14319, 04235 ####[facility] [place] [address], [facility] Potassium molar conc 3.8 mmol/L Normal 3.5-5.1 The [facility] Comment on above: Performed By: #### 4 1000, 19236, 08824, 25196, 72648, 04839 ####[facility] [place] [address], [place] Protein mass conc 7.2 g/dL Normal 6.0-8.3 The [facility] Comment on above: Performed By: #### 4 1000, 99748, 27032, 98273, 74070, 62310 ####[facility] [place] [address], [place] Sodium molar conc 140 mmol/L Normal 136-145 The [facility] Comment on above: Performed By: #### 4 1000, 56787, 25314, 85431, 13423, 28773 ####[facility]3000 [facility].[address] Urea nitrogen mass conc 15 mg/dL Normal 7-25 [facility] Comment on above: Performed By: #### 4 1000, 38314, 57780, 09401, 30552, 30843 ####[facility]3000 [facility].[address] DIRECT BILIon 04-29-2017 Bilirubin.direct mass conc 0.1 mg/dL Normal 0.0-0.2 [facility] Comment on above: Order Comment: Liver Battery conflicts with Comprehensive Metabolic Panel. Liver Battery canceled and Direct Bilirubin added. Performed By: #### 4 1000, 14107, 83384, 95911, 06005, 54519 ####[facility]3000 [facility].[address] EVEROLIMUS 22597cm 8 EVEROLIMUS 5.4 ng/mL Normal [facility] Comment on above: Result Comment: [...] the transplantcenter.Test developed and characteristics determined by [facility]. See Compliance Statement B: [employer] by [employer],[address] [place] [address] vng.[employer], Leonid Antonio MD - Lab. Director LIPID PROFILEon 04-29-2017 Cholesterol in HDL mass conc 49 mg/dL Normal 23-92 The [facility] Comment on above: Result Comment: Slig ht variation in normal range could be due to gender and/or age.HDL CHOLESTEROL REFERENCE RANGE:20 years and older Cardiovascular Risk> or =60 mg/dL [id number] TO 59 mg/dL Low Risk<40 mg/dL High Risk Performed By: #### 4 1000, 68723, 92172, 96390, 06799, 96533 ####[facility] [place] [address], [facility] Cholesterol in LDL mass conc 52 mg/dL Normal 0-130 The [facility] Comment on above: Result Comment: LDL IS A CALCULATIONLDL IS ONLY VALID IF THE TRIG IS LESS THAN 400. Performed By: #### 4 1000, 43752, 06214, 75229, 27105, 53315 ####[facility] [place] [address], [facility] Cholesterol mass conc 122 mg/dL Normal 120-200 The [facility] Comment on above: Result Comment: CHOL ESTEROL REFERENCE RANGE:20 YEARS AND OLDER CARDIOVASCULAR RISKLess than 200 mg/dl Low Gxmk277 to 239 mg/dl Borderline Jotc108 mg/dl and greater High Risk Performed By: #### 4 1000, 48295, 32261, 06168, 24095, 22103 ####[facility] [place] [address], [facility] Cholesterol.total/Cho lesterol in HDL mass ratio 2.5 {ratio} Normal .0-4.5 The [facility] Comment on above: Performed By: #### 4 1000, 69351, 29680, 44374, 86127, 11839 ####[facility] NON-HDL CHOLESTEROL 73 mg/dL Normal The [facility] Comment on above: Performed By: #### 4 1000, 96069, 31514, 37790, 90172, 76827 ####[facility]3000 [facility].[address] Triglyceride mass conc 106 mg/dL Normal 40-149 The [facility] Comment on above: Result Comment: TRIG LYCERIDE REFERENCE RANGE:20 YEARS AND OLDER CARDIOVASCULAR RISKLESS THAN 150 mg/dl LOW [id number] TO 199 mg/dl BORDERLINE GASX635 mg/dl AND GREATER HIGH RISK Performed By: #### 4 1000, 02870, 85250, 79356, 06000, 96875 ####[facility]3000 [facility].[address] VLDL CHOL 21 mg/dL Normal 0-40 The [facility] Comment on above: Performed By: #### 4 1000, 95818, 14936, 61963, 70928, 30766 ####[facility] [facility].[address] MAGNESIUM BLOODon 04-29-2017 Magnesium mass conc 2.1 mg/dL Normal 1.9-2.7 The [facility] Comment on above: Performed By: #### 4 1000, 45102, 82321, 52708, 64546, 35753 ####[facility]3000 [facility].[address] PHOSPHORUS BLOODon 8 Phosphate mass conc 3.3 mg/dL Normal 2.5-5.0 The [facility] Comment on above: Performed By: #### 4 1000, 83003, 45523, 58821, 97978, 15989 ####[facility] [place] [address], [facility] TACROLIMUSon 04-29-2017 Tacrolimus mass conc (Bld) 4.6 ng/mL Low 5.0-20.0 The [facility] Comment on above: Result Comment: The [employer] Tacrolimus assay is a delayed one-step immunoassayfor the quantitative determination of tacrolimus in human whole bloodusing the chemiluminescent microparticle immunoassay (CMIA) technologywith flexible assay protocols, referred to as Chemiflex. Performed By: #### 4 1000, 90975, 90330, 22422, 91782, 12776 ####[facility] URIC ACID BLOODon 04-29-2017 Urate mass conc 4.6 mg/dL Normal 2.3-6.6 The [facility] Comment on above: Performed By: #### 4 1000, 93649, 98044, 84669, 04332, 96326 ####[facility] CBC W/DIFFon 03-27-2017 Basophils Auto #/vol (Bld) 0.2 % Normal 0.0-2.0 The [facility] Comment on above: Performed By: #### 4 1000, 51762, 12347, 70947, 07352, 96287 ####[facility] Eosinophils/100 WBC Auto (Bld) 1.8 % Normal 0.0-5.0 The [facility] Comment on above: Performed By: #### 4 1000, 48885, 59263, 86545, 01268, 48845 ####[facility] Erythrocyte distribution width Auto Ratio (RBC) 13.6 % Normal 11.5-16.9 The [facility] Comment on above: Performed By: #### 4 1000, 78601, 19337, 99440, 38722, 85406 ####[facility] Hematocrit Auto Volume Fraction (Bld) 47.6 % Normal 36.0-48.0 The [facility] Comment on above: Performed By: #### 4 1000, 62074, 85108, 47063, 72625, 22436 ####[facility] Hemoglobin mass conc (Bld) 15.8 g/dL High 12.0-15.0 The [facility] Comment on above: Performed By: #### 4 1000, 03134, 95659, 70265, 78920, 13815 ####[facility] Lymphocytes/100 WBC Auto (Bld) 14.5 % Low 20.0-40.0 The [facility] Comment on above: Performed By: #### 4 1000, 36884, 78003, 71402, 71482, 69740 ####[facility] MCH Auto Entitic mass (RBC) 29.0 pg Normal 24.0-32.0 The [facility] Comment on above: Performed By: #### 4 1000, 06207, 22359, 12205, 23194, 71673 ####[facility] MCHC Auto mass conc (RBC) 33.3 g/dL Normal 32.0-36.0 The [facility] Comment on above: Performed By: #### 4 1000, 34878, 48989, 66365, 55160, 42152 ####[facility] MCV Auto Entitic volume (RBC) 87.4 fL Normal 80.0-100.0 The [facility] Comment on above: Performed By: #### 4 1000, 37848, 11055, 77909, 89445, 92021 ####[facility] METHOD Normal RBC Morphology Normal The [facility] Comment on above: Performed By: #### 4 1000, 00859, 12458, 36161, 18466, 42633 ####[facility] [place] [address], [facility] MONOS 9.6 % High 2-8 The [facility] Comment on above: Performed By: #### 4 1000, 24337, 34939, 73689, 70472, 24328 ####[facility] Neutrophils/100 WBC Auto (Bld) 73.9 % High 50-70 The [facility] Comment on above: Performed By: #### 4 1000, 32157, 70357, 64437, 05950, 31615 ####[facility] [place] [address], [facility] PLAT CNT 228 Thou/mm3 Normal 100-400 The [facility] Comment on above: Performed By: #### 4 1000, 85175, 01451, 49817, 90836, 30746 ####[facility] [facility].[address] RBC Auto #/vol (Bld) 5.45 mill/mm3 Normal 3.50-5.50 T he [facility] Comment on above: Performed By: #### 4 1000, 30657, 23912, 02105, 58913, 51205 ####[facility] WBC Auto #/vol (Bld) 6.5 Thou/mm3 Normal 4.0-10.0 Th e [facility] Comment on above: Performed By: #### 4 1000, 26895, 61947, 74612, 33932, 77856 ####[facility] COMP METABOLIC PANELon 03-27 Albumin mass conc 4.7 g/dL Normal 3.5-5.7 [facility] Comment on above: Performed By: #### 4 1000, 56363, 84990, 61411, 85625, 29471 ####[facility] [place] [address], [facility] ALKALINE PHOSPH 99 IU/L Normal 34-104 The [facility] Comment on above: Performed By: #### 4 1000, 41684, 63032, 83676, 08384, 80336 ####[facility] ALT enzyme act/vol 19 U/L Normal 7-52 [facility] Comment on above: Performed By: #### 4 1000, 55591, 56770, 31497, 42113, 62742 ####[facility] AST enzyme act/vol 21 U/L Normal 13-39 [facility] Comment on above: Performed By: #### 4 1000, 78190, 53433, 64320, 04940, 40733 ####[facility] [place] [address], [facility] [facility] Bilirubin mass conc 0.6 mg/dL Normal 0.3-1.0 The [facility] Comment on above: Performed By: #### 4 1000, 16731, 70146, 76331, 75667, 30474 ####[facility] [place] [address], [facility] Calcium mass conc 10.2 mg/dL Normal 8.6-10.3 The [facility] Comment on above: Performed By: #### 4 1000, 42180, 39776, 00851, 11743, 12843 ####[facility] [place] [address], [facility] Chloride molar conc 104 mmol/L Normal 98-107 The [facility] Comment on above: Performed By: #### 4 1000, 51638, 50773, 28013, 03585, 94356 ####[facility] [place] [address], [facility] CO2 molar conc 28 mmol/L Normal 21-31 [facility] Comment on above: Performed By: #### 4 1000, 60753, 77335, 19104, 28041, 13315 ####[facility] [place] [address], [facility] Creatinine mass conc 0.78 mg/dL Normal 0.60-1.20 [facility] Comment on above: Performed By: #### 4 1000, 68819, 44185, 53542, 37629, 52221 ####[facility] [place] [address], [facility] GFR/1.73 sq M predicted among blacks MDRD vol rate/area (S/P/Bld) mL/min/{1.73_m2} Normal >60 The [facility] Comment on above: Performed By: #### 4 1000, 10421, 51335, 24781, 44485, 74401 ####[facility] [place] [address], [facility] GFR/1.73 sq M predicted among non-blacks MDRD vol rate/area (S/P/Bld) mL/min/{1.73_m2} Normal >60 The [facility] Comment on above: Performed By: #### 4 1000, 12141, 66888, 99695, 38761, 60327 ####[facility] [place] [address], [place] Glucose mass conc 87 mg/dL Normal 70-100 [facility] Comment on above: Performed By: #### 4 1000, 88951, 63045, 48166, 43845, 63677 ####[facility] Potassium molar conc 4.1 mmol/L Normal 3.5-5.1 The [facility] Comment on above: Performed By: #### 4 1000, 74817, 89435, 98676, 91921, 97563 ####[facility] Protein mass conc 7.8 g/dL Normal 6.0-8.3 The [facility] Comment on above: Performed By: #### 4 1000, 04422, 43994, 66239, 34762, 47963 ####[facility] Sodium molar conc 139 mmol/L Normal 136-145 The [facility] Comment on above: Performed By: #### 4 1000, 91558, 36891, 02160, 68043, 29375 ####[facility] Urea nitrogen mass conc 19 mg/dL Normal 7-25 The [facility] Comment on above: Performed By: #### 4 1000, 60460, 84415, 07134, 56289, 18233 ####[facility] DIRECT BILIon 03-27-2017 Bilirubin.direct mass conc 0.1 mg/dL Normal 0.0-0.2 The [facility] Comment on above: Performed By: #### 4 1000, 38992, 97000, 93956, 84923, 79510 ####[facility] EVEROLIMUS [id number] 7 EVEROLIMUS 5.3 ng/mL Normal The [facility] Comment on above: Result Comment: Ther apeutic [...] the transplantcenter.Test developed and characteristics determined by [facility]. See Compliance Statement B: [employer]/CSPerformed by [employer],[address] [place] [id number] nfc.[employer], Leonid Antonio MD - Lab. Director LIPID PROFILEon 03-27-2017 Cholesterol in HDL mass conc 50 mg/dL Normal 23-92 [facility] Comment on above: Result Comment: Slig ht variation in normal range could be due to gender and/or age.HDL CHOLESTEROL REFERENCE RANGE:20 years and older Cardiovascular Risk> or =60 mg/dL [id number] TO 59 mg/dL Low Risk<40 mg/dL High Risk Performed By: #### 4 1000, 91460, 31687, 76677, 05400, 84490 ####[facility] [facility] [place] [address], [facility] Cholesterol in LDL mass conc 66 mg/dL Normal 0-130 The [facility] Comment on above: Result Comment: LDL IS A CALCULATIONLDL IS ONLY VALID IF THE TRIG IS LESS THAN 400. Performed By: #### 4 1000, 04223, 22332, 05926, 28083, 17025 ####[facility] [facility] [place] [address], [facility] Cholesterol mass conc 147 mg/dL Normal 120-200 The [facility] Comment on above: Result Comment: CHOL ESTEROL REFERENCE RANGE:20 YEARS AND OLDER CARDIOVASCULAR RISKLess than 200 mg/dl Low Kxtj820 to 239 mg/dl Borderline Hyss036 mg/dl and greater High Risk Performed By: #### 4 1000, 57056, 74457, 45970, 97162, 40405 ####[facility] Cholesterol.total/Cho lesterol in HDL mass ratio 2.9 {ratio} Normal .0-4.5 The [facility] Comment on above: Performed By: #### 4 1000, 08783, 26687, 55626, 07957, 01496 ####[facility] [facility].[address] NON-HDL CHOLESTEROL 97 mg/dL Normal The [facility] Comment on above: Performed By: #### 4 1000, 19594, 57769, 32715, 03223, 88579 ####[facility] [facility].[address] Triglyceride mass conc 157 mg/dL High 40-149 The [facility] Comment on above: Result Comment: TRIG LYCERIDE REFERENCE RANGE:20 YEARS AND OLDER CARDIOVASCULAR RISKLESS THAN 150 mg/dl LOW [id number] TO 199 mg/dl BORDERLINE [id number] mg/dl AND GREATER HIGH RISK Performed By: #### 4 1000, 88503, 26738, 33240, 89344, 05700 ####[facility] VLDL CHOL 31 mg/dL Normal 0-40 The [facility] Comment on above: Performed By: #### 4 1000, 78486, 92811, 61498, 56490, 32654 ####[facility] MAGNESIUM BLOODon 03-27-2017 Magnesium mass conc 1.9 mg/dL Normal 1.9-2.7 The [facility] Comment on above: Performed By: #### 4 1000, 32858, 54704, 96136, 64172, 93869 ####[facility] [facility] [place] [address], [facility] PHOSPHORUS BLOODon 7 Phosphate mass conc 3.4 mg/dL Normal 2.5-5.0 [facility] Comment on above: Performed By: #### 4 1000, 37460, 50096, 23925, 05277, 33334 ####[facility] [facility].[address] TACROLIMUSon 03-27-2017 Tacrolimus mass conc (Bld) 3.7 ng/mL Low 5.0-20.0 The [facility] Comment on above: Result Comment: The [employer] Tacrolimus assay is a delayed one-step immunoassayfor the quantitative determination of tacrolimus in human whole bloodusing the chemiluminescent microparticle immunoassay (CMIA) technologywith flexible assay protocols, referred to as Chemiflex. Performed By: #### 4 1000, 52053, 18319, 18555, 19792, 55401 ####[facility] URIC ACID BLOODon 03-27-2017 Urate mass conc 4.1 mg/dL Normal 2.3-6.6 The [facility] Comment on above: Performed By: #### 4 1000, 90958, 13153, 27676, 21751, 53998 ####[facility] BK VIRUS QUANTITATION PCR BL OODon 02-26-2017 BKV QUANT PCR Not detected Normal The [facility] Comment on above: Result Comment: Meth od: BK virus was measured by quantitative polymerase chain reactionusing a TaqMan probe targeting the polyomavirus BK [place]-1 gene.The lower limit of quantitation of the assay is 500 copies of BK genomeper milliliter of plasma or urine, and any detectable BK DNA below thatlevel is reported as: Detected, <500 copies/ml. Serial BK virusmeasurement can be used to monitor disease activity. (Reference:Kelsie simpson. J CLIN MICRO 2004; 42:0707-8722).This test was developed and its performance characteristics determinedby the [facility]. It has not been approvedby the US Food and Drug Administration. However, such approval is notrequired for clinical implementation, and test results have been shownto be clinically useful. This laboratory is CAP accredited and CLIAcertified to perform high complexity testing. Performed By: #### 4 1000, 36385, 55871, 68027, 88513, 94343 ####[facility] [facility].[address] LOG 10 COPIES Not detected Normal The [facility] Comment on above: Performed By: #### 4 1000, 70281, 20710, 57147, 17286, 61051 ####[facility] [facility].[address] CBC W/DIFFon 02-26-2017 Basophils Auto #/vol (Bld) 0.3 % Normal 0.0-2.0 [facility] Comment on above: Performed By: #### 5 0103 ####[place] [address] [facility].[address] Eosinophils/100 WBC Auto (Bld) 2.2 % Normal 0.0-5.0 The [facility] Comment on above: Performed By: #### 5 0103 ####[place] [address] [facility].[address] Erythrocyte distribution width Auto Ratio (RBC) 13.8 % Normal 11.5-16.9 The [facility] Comment on above: Performed By: #### 5 0103 ####[place] [address] [facility].[address] Hematocrit Auto Volume Fraction (Bld) 44.9 % Normal 36.0-48.0 The [facility] Comment on above: Performed By: #### 5 0103 ####[address] [place] [address], [place] Hemoglobin mass conc (Bld) 15.0 g/dL Normal 12.0-15.0 The [facility] Comment on above: Performed By: #### 5 0103 ####[facility] Lymphocytes/100 WBC Auto (Bld) 18.9 % Low 20.0-40.0 The [facility] Comment on above: Performed By: #### 5 0103 ####[facility] [facility].[address] MCH Auto Entitic mass (RBC) 28.9 pg Normal 24.0-32.0 The [facility] Comment on above: Performed By: #### 5 0103 ####[place] [address] [facility].[address] MCHC Auto mass conc (RBC) 33.4 g/dL Normal 32.0-36.0 The [facility] Comment on above: Performed By: #### 3 ####[place] [address] [facility].[address] MCV Auto Entitic volume (RBC) 86.6 fL Normal 80.0-100.0 The [facility] Comment on above: Performed By: #### 5 0103 ####[place] [address] [facility].[address] METHOD Normal RBC Morphology Normal The [facility] Comment on above: Performed By: #### 5 0103 ####[address] MONOS 11.7 % High 2-8 The [facility] Comment on above: Performed By: #### 5 3 ####[facility] [place] [address], [facility] Neutrophils/100 WBC Auto (Bld) 66.9 % Normal 50-70 The [facility] Comment on above: Performed By: #### 5 0103 ####[facility] [place] [address], [facility] PLAT CNT 230 Thou/mm3 Normal 100-400 The [facility] Comment on above: Performed By: #### 5 0103 ####[facility] RBC Auto #/vol (Bld) 5.18 mill/mm3 Normal 3.50-5.50 T he [facility] Comment on above: Performed By: #### 5 0103 ####[facility] WBC Auto #/vol (Bld) 5.8 Thou/mm3 Normal 4.0-10.0 Th e [facility] Comment on above: Performed By: #### 5 0103 ####[facility] COMP METABOLIC PANELon 02-26 Albumin mass conc 4.7 g/dL Normal 3.5-5.7 The [facility] Comment on above: Performed By: #### 4 1000, 00709, 60173, 75250, 70628, 53216 ####[facility] [facility].[address] ALKALINE PHOSPH 115 IU/L High 34-104 The [facility] Comment on above: Performed By: #### 4 1000, 31286, 62868, 83110, 12488, 44903 ####[facility] ALT enzyme act/vol 18 U/L Normal 7-52 The [facility] Comment on above: Performed By: #### 4 1000, 04817, 72180, 72670, 89527, 28761 ####[facility] [place] [address], [place] AST enzyme act/vol 22 U/L Normal 13-39 The [facility] Comment on above: Performed By: #### 4 1000, 97364, 28826, 96121, 85020, 27691 ####[facility] [place] [address], [place] Bilirubin mass conc 0.6 mg/dL Normal 0.3-1.0 The [facility] Comment on above: Performed By: #### 4 1000, 81305, 36086, 79459, 85736, 62039 ####[facility] [place] [address], [facility] Calcium mass conc 9.8 mg/dL Normal 8.6-10.3 The [facility] Comment on above: Performed By: #### 4 1000, 65411, 73603, 15610, 79302, 50823 ####[facility] [place] [address], [place] Chloride molar conc 103 mmol/L Normal 98-107 The [facility] Comment on above: Performed By: #### 4 1000, 88977, 23842, 43213, 62141, 85235 ####[facility] [place] [address], [place] CO2 molar conc 29 mmol/L Normal 21-31 The [facility] Comment on above: Performed By: #### 4 1000, 30340, 64701, 16187, 52285, 84978 ####[facility] [place] [address], [place] Creatinine mass conc 0.78 mg/dL Normal 0.60-1.20 The [facility] Comment on above: Performed By: #### 4 1000, 54369, 24590, 90118, 73431, 61556 ####[facility] [place] [address], [place] GFR/1.73 sq M predicted among blacks MDRD vol rate/area (S/P/Bld) mL/min/{1.73_m2} Normal >60 The [facility] Comment on above: Performed By: #### 4 1000, 58285, 39017, 22202, 32091, 26978 ####[facility] [place] [address], [facility] GFR/1.73 sq M predicted among non-blacks MDRD vol rate/area (S/P/Bld) mL/min/{1.73_m2} Normal >60 The [facility] Comment on above: Performed By: #### 4 1000, 57704, 10640, 37201, 91868, 51345 ####[facility] [place] [address], [facility] Glucose mass conc 94 mg/dL Normal 70-100 The [facility] Comment on above: Performed By: #### 4 1000, 76651, 47030, 53753, 31174, 96174 ####[facility] [place] [address], [facility] Potassium molar conc 3.8 mmol/L Normal 3.5-5.1 The [facility] Comment on above: Performed By: #### 4 1000, 59760, 37839, 73086, 97782, 99891 ####[facility] [id number], [facility] Protein mass conc 7.4 g/dL Normal 6.0-8.3 The [facility] Comment on above: Performed By: #### 4 1000, 23082, 65017, 10696, 98848, 87868 ####[facility] [place] [address], [facility] Sodium molar conc 136 mmol/L Normal 136-145 [facility] Comment on above: Performed By: #### 4 1000, 51283, 84099, 18355, 09820, 34350 ####[facility] [place] [address], [facility] Urea nitrogen mass conc 19 mg/dL Normal 7-25 The [facility] Comment on above: Performed By: #### 4 1000, 65899, 48306, 19971, 45173, 86359 ####[facility] [place] [address], [facility] DIRECT BILIon 02-26-2017 Bilirubin.direct mass conc 0.1 mg/dL Normal 0.0-0.2 The [facility] Comment on above: Performed By: #### 4 1000, 62955, 29338, 22251, 02242, 15924 ####[facility] EVEROLIMUS [id number] 7 EVEROLIMUS 5.9 ng/mL Normal The [facility] Comment on above: Result Comment: Ther apeutic [...] the transplantcenter.Test developed and characteristics determined by [facility]. See Compliance Statement B: [email or web address]/CSPerformed by [employer],[address] [facility],[place] [id number].[employer], Leonid Antonio MD - Lab. Director HEMOGLOBIN A1Con 02-26-2017 Glucose mass conc 108 mg/dL Normal 70-126 [facility] Comment on above: Performed By: #### 4 6447, 60839 ####[facility] Hemoglobin A1c/Hemoglobin.total mass fraction (Bld) 5.4 % Normal 4.0-6.0 [facility] Comment on above: Performed By: #### 4 6447, 07695 ####[facility] LIPID PROFILEon 02-26-2017 Cholesterol in HDL mass conc 54 mg/dL Normal 23-92 [facility] Comment on above: Result Comment: Slig ht variation in normal range could be due to gender and/or age.HDL CHOLESTEROL REFERENCE RANGE:20 years and older Cardiovascular Risk> or =60 mg/dL Myvsxfozv56 TO 59 mg/dL Low Risk<40 mg/dL High Risk Performed By: #### 4 1000, 96987, 05305, 54293, 06467, 46992 ####[facility] [place] [address], [facility] Cholesterol in LDL mass conc 70 mg/dL Normal 0-130 [facility] Comment on above: Result Comment: LDL IS A CALCULATIONLDL IS ONLY VALID IF THE TRIG IS LESS THAN 400. Performed By: #### 4 1000, 68714, 03008, 05770, 64129, 90883 ####[facility] [place] [address], [facility] Cholesterol mass conc 144 mg/dL Normal 120-200 [facility] Comment on above: Result Comment: CHOL ESTEROL REFERENCE RANGE:20 YEARS AND OLDER CARDIOVASCULAR RISKLess than 200 mg/dl Low Ieyr765 to 239 mg/dl Borderline Gwjr437 mg/dl and greater High Risk Performed By: #### 4 1000, 58814, 30618, 42589, 08752, 17621 ####[facility] Cholesterol.total/Cho lesterol in HDL mass ratio 2.7 {ratio} Normal .0-4.5 The [facility] Comment on above: Performed By: #### 4 1000, 25000, 65779, 45234, 29248, 22796 ####[facility] NON-HDL CHOLESTEROL 90 mg/dL Normal The [facility] Comment on above: Performed By: #### 4 1000, 66594, 68873, 80612, 41398, 38205 ####[facility] Triglyceride mass conc 101 mg/dL Normal 40-149 The [facility] Comment on above: Result Comment: TRIG LYCERIDE REFERENCE RANGE:20 YEARS AND OLDER CARDIOVASCULAR RISKLESS THAN 150 mg/dl LOW [id number] TO 199 mg/dl BORDERLINE [id number] mg/dl AND GREATER HIGH RISK Performed By: #### 4 1000, 44576, 96064, 17153, 62842, 55250 ####[facility] VLDL CHOL 20 mg/dL Normal 0-40 The [facility] Comment on above: Performed By: #### 4 1000, 65559, 96377, 65184, 20871, 47937 ####[facility] [place] [address], [facility] MAGNESIUM BLOODon 02-26-2017 Magnesium mass conc 1.9 mg/dL Normal 1.9-2.7 The [facility] Comment on above: Performed By: #### 4 1000, 53646, 63380, 34314, 63301, 07486 ####[facility] [place] [address], [facility] PHOSPHORUS BLOODon 11-29-201 7 Phosphate mass conc 4.1 mg/dL Normal 2.5-5.0 The [facility] Comment on above: Performed By: #### 4 1000, 78022, 28768, 24514, 09094, 45446 ####[facility] TACROLIMUSon 02-26-2017 Tacrolimus mass conc (Bld) 4.2 ng/mL Low 5.0-20.0 The [facility] Comment on above: Result Comment: The [employer] Tacrolimus assay is a delayed one-step immunoassayfor the quantitative determination of tacrolimus in human whole bloodusing the chemiluminescent microparticle immunoassay (CMIA) technologywith flexible assay protocols, referred to as Chemiflex. Performed By: #### 4 6447, 04737 ####[facility] URIC ACID BLOODon 02-26-2017 Urate mass conc 4.3 mg/dL Normal 2.3-6.6 The [facility] Comment on above: Performed By: #### 4 1000, 15610, 31848, 52763, 45209, 05126 ####[place] [address] [address] Vital Signs Date Time Vital Sign Value Performing Clinician Facility 08-30-2023 09: Body height 182.88 cm [facility] 08-30-2023 09:040 Body mass index (BMI) [Ratio] 17.9 kg/m2 [facility] 08-30-2023 09:22040 Body temperature 99.8 [degF] [facility] 08-30-2023 09:040 Body weight 59.87 kg [facility] 08-30-2023 09:22040 Diastolic blood pressure 73 mm[Hg] [facility] 08-30-2023 09:22040 Heart rate 67 /min [facility] 08-30-2023 09:220400 SaO2% (BldA) [Mass fraction] 95 % [facility] 08-30-2023 09:22-0400 Systolic blood pressure 111 mm[Hg] [facility] 03-27-2023 11:30-0500 Body height 152.4 cm Cathy Bella Other [facility] Other 03-27-2023 11:30-0500 Body mass index (BMI) [Ratio] 25.39 kg/m2 Cathy Bella Other [facility] Other 03-27-2023 11:30-0500 Body temperature 97.5 [degF] Cathy Bella Other [facility] Other 03-27-2023 11:30-0500 Body weight 58.97 kg Cathy Bella Other [facility] Other 03-27-2023 11:30-0500 Respiratory rate 18 /min Cathy Bella Other [facility] Other 03-27-2023 11:30-0500 SaO2% (BldA) [Mass fraction] 96 % Cathy Bella Other [facility] Other 09-21-2022 09:00-0400 Body height 152.4 cm Martha Guevara Other [facility] Other 09-21-2022 09:00-0400 Body mass index (BMI) [Ratio] 22.46 kg/m2 Martha Guevara Other [facility] Other 09-21-2022 09:00-0400 Body temperature 97.6 [degF] Martha Guevara Other [facility] Other 09-21-2022 09:00-0400 Body weight 52.16 kg Martha Guevara Other [facility] Other 09-21-2022 09:00-0400 Diastolic blood pressure 70 mm[Hg] Martha Guevara Other [facility] Other 09-21-2022 09:00-0400 Respiratory rate 18 /min Martha Guevara Other [facility] Other 09-21-2022 09:00-0400 SaO2% (BldA) [Mass fraction] 96 % Martha Guevara Other [facility] Other 09-21-2022 09:00-0400 Systolic blood pressure 107 mm[Hg] Martha Guevara Other [facility] Other 01-12-2022 13:55-0400 Body height 152.4 cm Cathy Bella Other [facility] Other 01-12-2022 13:55-0400 Body mass index (BMI) [Ratio] 19.53 kg/m2 Cathy Bella Other [facility] Other 01-12-2022 13:55-0400 Body temperature 96.9 [degF] Cathy Bella Other [facility] Other 01-12-2022 13:55-0400 Body weight 45.36 kg Cathy Bella Other [facility] Other 01-12-2022 13:55-0400 Respiratory rate 18 /min Cathy Bella Other [facility] Other 01-12-2022 13:55-0400 SaO2% (BldA) [Mass fraction] 97 % Cathy Bella Other [facility] Other 12-28-2021 10:20-0400 Body height 152.4 cm Martha Smithmond Other [facility] Other 12-28-2021 10:20-0400 Body mass index (BMI) [Ratio] 21.48 kg/m2 Martha Paola Other [facility] Other 12-28-2021 10:20-0400 Body temperature 98 [degF] Martha Paola Other [facility] Other 12-28-2021 10:20-0400 Body weight 49.9 kg Martha Paola Other [facility] Other 12-28-2021 10:20-0400 Respiratory rate 18 /min Martha Smithmond Other [facility] Other 12-28-2021 10:20-0400 SaO2% (BldA) [Mass fraction] 97 % Martha Smithmond Other [facility] Other 12-25-2021 10:05-0400 Body height 152.4 cm Cathy Shayne Other [facility] Other 12-25-2021 10:05-0400 Body mass index (BMI) [Ratio] 21.48 kg/m2 Cathy Bella Other [facility] Other 12-25-2021 10:05-0400 Body temperature 96 [degF] Cathy Bella Other [facility] Other 12-25-2021 10:05-0400 Body weight 49.9 kg Cathy Bella Other [facility] Other 12-25-2021 10:05-0400 Respiratory rate 18 /min Cathy Bella Other [facility] Other 12-25-2021 10:05-0400 SaO2% (BldA) [Mass fraction] 97 % Cathy Bella Other [facility] Other 10-27-2021 12:35-0400 Body height 152.4 cm Cathy Bella Other [facility] Other 10-27-2021 12:35-0400 Body mass index (BMI) [Ratio] 22.85 kg/m2 Cathy Bella Other [facility] Other 10-27-2021 12:35-0400 Body weight 53.07 kg Cathy Bella Other [facility] Other 10-27-2021 12:35-0400 Diastolic blood pressure 87 mm[Hg] Cathy Bella Other [facility] Other 10-27-2021 12:35-0400 SaO2% (BldA) [Mass fraction] 98 % Cathy Bella Other [facility] Other 10-27-2021 12:35-0400 Systolic blood pressure 130 mm[Hg] Cathy Bella Other [facility] Other 08-14-2021 10:40-0400 Body height 152.4 cm Martha Guevara Other [facility] Other 08-14-2021 10:40-0400 Body mass index (BMI) [Ratio] 22.46 kg/m2 Martha Guevara Other [facility] Other 08-14-2021 10:40-0400 Body temperature 96.7 [degF] Martha Guevara Other [facility] Other 08-14-2021 10:40-0400 Body weight 52.16 kg Martha Guevara Other [facility] Other 08-14-2021 10:40-0400 Diastolic blood pressure 68 mm[Hg] Martha Guevara Other [facility] Other 08-14-2021 10:40-0400 Respiratory rate 20 /min Martha Guevara Other [facility] Other 08-14-2021 10:40-0400 SaO2% (BldA) [Mass fraction] 98 % Martha Guevara Other [facility] Other 08-14-2021 10:40-0400 Systolic blood pressure 144 mm[Hg] Martha Guevara Other [facility] Other Encounters Encounter Date Encounter Type Care Provider Facility Start: 04-19-2024 End: 04-19-2024 Clinisync Result Encounter Generic External Data Provider [facility] Unsolicited Start: 04-19-2024 End: 04-19-2024 Clinisync Result Encounter Generic External Data Provider [facility] External [facility] Unsolicited Start: 04-01-2024 End: 04-01-2024 [facility]SH[facility] Start: 03-19-2024 End: 03-19-2024 Clinisync Result Encounter [...] Unsolicited Start: 09-23-2023 End: 09-23-2023 ambulatory VIRGIL ADHIKARIROSLYN [facility] Start: 09-02-2023 End: 09-02-2023 ambulatory ESTER PADILLA Not Available Start: 08-30-2023 End: 08-30-2023 ambulatory [facility] Work Phone: Start: 08-30-2023 End: 08-30-2023 Patient encounter procedure [facility] [place] Work Phone: Start: 04-02-2023 End: 04-02-2023 ambulatory RAMON CARROLL Not Available Start: 03-27-2023 End: 03-27-2023 ambulatory Cathy Bella Other [facility] Other Start: 03-27-2023 Office outpatient visit 25 minutes Cathy Bella [facility] [place] Start: 03-06-2023 End: 03-06-2023 ambulatory ESTER PADILLA Not Available Start: 02-12-2023 End: 02-12-2023 ambulatory ESTER PADILLA Not Available Start: 09-21-2022 End: 09-21-2022 ambulatory Martha Guevara Other [facility] Other Start: 09-21-2022 Office outpatient visit 15 [...] 01-12-2022 End: 01-12-2022 ambulatory Cathy Bella Other [facility] Other Start: 01-12-2022 Office outpatient visit 15 minutes Cathy Bella [facility] [place] Start: 01-07-2022 End: 01-07-2022 ambulatory ISATU Ziegler Facility:[facility] Start: 01-03-2022 End: 01-04-[address] VIRGIL SWIFT Facility:[facility] Start: 12-28-2021 End: 12-28-2021 ambulatory Martha Guevara Other [facility] Other Start: 12-28-2021 Office outpatient visit 15 minutes Martha Paola [facility] [place] Start: 12-25-2021 End: 12-25-2021 ambulatory Cathy Bella Other [facility] Other Start: 12-25-2021 Office outpatient visit 25 minutes Cathy Bella [facility] [place] Start: 12-05-2021 End: 12-06-[address] DOCTOR MISC Facility:[facility] Start: 11-07-2021 End: 11-08-[address] DOCTOR MISC Facility:[facility] Start: 10-27-2021 End: 10-27-2021 ambulatory Cathy Bella Other [facility] Other Start: 10-27-2021 Office outpatient visit 15 minutes Cathy Bella [facility] [place] Start: 10-15-2021 End: 10-16-[address] DOCTOR MISC Facility:[facility] Start: 10-08-2021 End: 10-09-[address] DOCTOR MISC Facility:[facility] Start: 09-10-2021 End: 09-11-[address] DOCTOR MISC Facility:[facility] Start: 08-14-2021 End: 08-14-2021 ambulatory Martha Guevara Other [facility] Other Start: 08-14-2021 Office outpatient visit 15 [...] Date Procedure Procedure Detail Performing Clinician Start: 04-19-2024 ALL CBC WITH AUTO DIFF Generic External Data Provider Start: 03-19-2024 ALL CBC WITH AUTO DIFF Generic External Data Provider Start: 02-13-2024 ALL CBC WITH AUTO DIFF Generic External Data Provider Start: 02-13-2024 ALL MAGNESIUM Generic E xternal Data Provider Start: 02-13-2024 ALL PHOSPHOROUS Generic External Data Provider Start: 02-13-2024 ALL URIC ACID Generic E xternal Data Provider Start: 02-13-2024 [facility] CMP (CMP) (FOR REMOTE [facility] USE) Generic External Data Provider Start: [...] for malign ant neoplasm of breast Mammogram [facility] Start: 04-02-2024 Medicare Annual Well ness (AWV) Medicare Annual Wellness (AWV) [facility] Start: 11-30-2023 Influenza vaccination Influenza Vacc ine (#1) [facility] Start: 07-24-2023 Screening for malign ant neoplasm of breast Mammogram [facility] Start: 1961 Pneumococcal Vaccine : 65+ Years (1 of 2 - PCV) Pneumococcal Vaccine: 65+ Years (1 of 2 - PCV) [facility] Start: 1955 Screening for malign ant neoplasm of colon [facility] Immunizations Immunization Date Immunization Notes Care Provider Fa [facility] 01-10-2023 Influenza, Seasonal, Quadrivalent, Adjuvanted Generic Provider [facility] 01-10-2023 influenza virus vaccine, unspecified formulation Generic Provider [facility] 09-16-2022 zoster vaccine recombinant Generic Provider [facility] 07-22-2022 zoster vaccine recombinant Generic Provider [facility] 02-19-2022 Influenza, injectabl e, Madin [place] Canine Kidney, preservative free, quadrivalent Generic Provider [facility] 02-19-2022 SARS-COV-2 (COVID-19 ) vaccine, mRNA, spike protein, LNP, bivalent, PF Generic Provider [facility] 01-09-2021 influenza, seasonal, injectable Generic Provider [facility] 12-12-2019 influenza, injectabl e, quadrivalent, preservative free Generic Provider [facility] 12-26-2018 influenza, injectabl e, quadrivalent, contains preservative Generic [facility] 01-21-2018 influenza, injectabl e, quadrivalent, contains preservative Generic [facility] 12-29-2017 influenza, injectabl e, quadrivalent, preservative free Generic [facility] 12-20-2016 influenza, injectabl e, quadrivalent, preservative free Generic Provider [facility] 12-02-2016 seasonal influenza, intradermal, preservative free Generic Provider [facility] 01-16-2015 influenza, injectabl e, quadrivalent, preservative free Generic Provider [facility] 03-16-2009 influenza virus vaccine, split virus (incl. purified surface antigen) Martha Guevara Other [facility] Other 03-16-2009 influenza virus vaccine, unspecified formulation [facility] Payers Date Payer Category Payer Medicare ANTH MEDICARE ADVANTAGE [facility] MEDICARE ADVANTAGE [id number] 2021-Present [address] [place] [address] [id number] 2021 Medicare (Managed Care) AMY MARIN ADVANTAGE Member Subscriber Plan / Payer (Effective 2021-Present) Name: Tanika Grimm Relation to Subscriber: Self Name: Tanika Grimm Payer ID: Not on file Group ID: [id number] Type: Not on file Address: [facility] [id number] [place] [id number] 1958 [facility] [id number] [id number] 1959 Self-pay 1959 Unknown [id number] 1956 Unknown [id number] 2.16.840.1.937725.3.579. 2.647 1956 Unknown [id number] 2.16.840.1.945888.3.579. 2.647 1956 Unknown [id number] 2.16.840.1.396271.3.579. 2.647 1956 Unknown [id number] 2.16.840.1.152541.3.579. 2.647 1956 Unknown [id number] 2.16.840.1.894884.3.579. 2.647 1956 Unknown [id number] 2.16.840.1.281155.3.579. 2.647 1956 Unknown [id number] 2.16.840.1.158923.3.579. 2.647 1956 Unknown [id number] 2.16.840.1.845179.3.579. 2.647 1956 Unknown [id number] 2.16.840.1.126272.3.579. 2.647 1956 Unknown [id number] 2.16.840.1.622899.3.579. 2.647 1956 Unknown [id number] 2.16.840.1.640871.3.579. 2.647 1956 Unknown [id number] 2.16.840.1.202391.3.579. 2.647 1956 Unknown [id number] 2.16.840.1.844175.3.579. 2.593 1956 Unknown [id number] 2.16.840.1.145965.3.579. 2.59 1956 Unknown [id number] 2.16.840.1.123248.3.579. 2.593 1956 Unknown [id number] 2.16.840.1.733419.3.579. 2.59 1956 Unknown [id number] 2.16.840.1.195404.3.579. 2.593 1956 Unknown [id number] 2.16.840.1.527539.3.579. 2.593 1956 Unknown [id number] 2.16.840.1.215717.3.579. 2.593 1956 Unknown [id number] 2.16.840.1.966175.3.579. 2.593 1956 Unknown [id number] 2.16.840.1.084747.3.579. 2.593 1956 Unknown [id number] 2.16.840.1.736143.3.579. 2.593 1956 Unknown [id number] 2.16.840.1.784386.3.579. 2.593 1956 Unknown [id number] 2.16.840.1.805852.3.579. 2.593 1956 Unknown [id number] 2.16.840.1.703548.3.579. 2.593 1956 Unknown [id number] 2.16.840.1.883953.3.579. 2.593 1956 Unknown [id number] 2.16.840.1.547960.3.579. 2.593 1956 Unknown [id number] 2.16.840.1.992005.3.579. 2.1259 1956 Unknown [id number] 2.16.840.1.630406.3.579. 2.1259 1956 Unknown [id number] 2.16.840.1.603171.3.579. 2.1259 1956 Unknown [id number] 2.16.840.1.361948.3.579. 2.1259 Unknown [id number] 2.16.840.1.491076.3.579. 2.593 Unknown Amy MCGREGOR/DAYSI [id number] Social History Date Type Detail Facility Unknown if ever smoked [facility] Other Start: 04-02-2023 End: 09-02-2023 Sex Assigned At [facility] Other Start: 01-29-2023 End: 08-30-2023 Tobacco smoking status NHIS Never smoked tobacco (finding) [facility] Start: 1955 Sex Assigned At Female F [facility] Start: 01-29-2023 Tobacco use and exposure Smokeless tobacco non-user [facility] Start: 09-02-2023 Alcoholic beverage intake Lifetime non-drinker (finding) [facility] Start: 04-02-2023 End: 09-02-2023 History of Social function [facility] Start: 1955 Sex assigned at Not [...] Continue meds and MONTHLY Labs with New [facility] standing Order given today. Follow up 6 months or sooner if needed. See Derm See PCP as scheduled: Dr Carroll. Tory Mouthwash script provided. Chart Review today: 03.17.23 Pt presents visit with . Pt states labs done Last week in [facility] and [place] calling for results. Pt seeing Derm in [place] for lesion: forearm and other lesions. Hx: [...] the study. <<<<<<<<<<<<<<<<<<<<<<<<<<<<<<<<<<< (more content not included)... [facility] 12-18-2023 Note Will review by phone today with Dr. Negro Vivas tac level 3.9 for 2 consecutive months and if any dose changes, will notify this pt and amend this note. Most recent IR tacrolimus dosing on record is 0.5mg BID [facility] 12-09-2023 Note Prior auth for Mycop henolate was submitted via [facility] Approved- scanned into media Keycode: [id number] [facility] 11-26-2023 Note Prior auth submitted via [facility] Case: [id number], Status: Approved, Coverage Starts on: 08/27/2023 12:00:00 AM, Coverage Ends on: 11/25/2024 12:00:00 AM Keycode: [id number] [facility] 09-23-2023 Note 09/23/23 Chief Complaint Patient presents with Kidney Follow-up Pt has been having sores in her mouth for the past month. PCP: Ramon Carroll MD Txp Referring: Preferred Pharmacy: [facility] - [place], [place] - [address] [facility] [address] [id number] - [place], [place] - [address] [facility] [address] [facility] [address] [facility] [phone] [facility] - [place], [place] - [address] [place] [address] [address] [facility] [address] Subjective Visit Vitals BP 139/74 (BP Location: Left arm, Patient Position: Sitting, BP Cuff Size: Adult) Pulse 59 Temp 36.3 ???C (97.3 ???F) (Oral) Resp 18 Ht 1.524 m (5') Wt 58.5 kg (129 lb) SpO2 99% BMI 25.19 kg/m??? OB Status Postmenopausal Smoking Status Never BSA 1.57 m??? No Known Allergies Medication Documentation Review Audit Reviewed by Ester Frederick MA (Business Education Professor) on 09/23/23 at 0859 Medication Order Taking? Sig Documenting Provider Last Dose Status amLODIPine (Norvasc) 5 mg tablet [id number] Yes TAKE 1 TABLET BY MOUTH EVERY DAY Virgil Haynes NP Taking Active amoxicillin (Amoxil) 500 mg capsule [id number] No 1 capsule every 8 (eight) hours. Historical Provider, Not Taking Active atorvastatin (Lipitor) 20 mg tablet [id number] Yes TAKE 1 TABLET BY MOUTH EVERY DAY AT BEDTIME Virgil Haynes NP Taking Active baclofen (Lioresal) 10 mg tablet [id number] No Historical Provider, Not Taking Active cyanocobalamin (Vitamin B-12) 500 mcg tablet [id number] Yes in the morning. Historical Provider, Taking Active magnesium oxide (Mag-Ox) 400 mg (241.3 mg magnesium) tablet [id number] Yes Take 400 mg by mouth in the morning. Historical Provider, Taking Active mycophenolate (Myfortic) 180 mg EC tablet [id number] Yes TAKE 4 TABLETS BY MOUTH IN THE MORNING AND AT BEDTIME Patient taking differently: Take 540 mg by mouth in the morning and at bedtime. Doe Bridges MD Taking Active omega-3 fatty acids-fish oil (Fish OiL Extra Strength) 435-880 mg capsule [id number] Yes 1 capsule 1 (one) time each day at the same time. Historical Provider, Taking Active PARoxetine (Paxil) 10 mg tablet [id number] Yes Take 10 mg by mouth in the morning. Historical Provider, Taking Active potassium gluconate 595 mg (99 mg) tablet [id number] Yes every 12 (twelve) hours. Historical Provider, Taking Active spironolactone (Aldactone) 25 mg tablet [id number] Yes TAKE 1 TABLET BY MOUTH EVERY DAY Virgil Haynes NP Taking Active tacrolimus (Prograf) 0.5 mg capsule [id number] Yes TAKE ONE CAPSULE BY MOUTH EVERY MORNING AND 1 CAPSULE EVERY NIGHT AT BEDTIME Anthony Kunz MD Taking Active Immunization History Administered Date(s) Administered Careers360 Sars-Cov-2 Vaccination 06/07/2020 There is no problem [...] Continue meds and MONTHLY Labs with New [facility] standing Order given today. Follow up 6 months or sooner if needed. See Derm See PCP as scheduled: Dr Carroll. Magic Mouthwash script provided. Chart Review today: 03.17.23 Pt presents visit with . Pt states labs done Last week in [facility] and [place] calling [place] results. Pt seeing Derm in [place] for lesion: forearm and other lesions. Hx: melanoma PCP: local Dr Khoury (more content not included)... [facility] 03-27-2023 Evaluation note Encounter Date Diagnosis Assessment Notes Feb, Contact with and (suspected) exposure to covid-19 (ICD-10 - Z20.822) Feb, Viral URI (ICD-10 - J06.9) Advised patient that COVID/Influenza A/B/RSV test and rapid Strep test was negative today. Advised patient that will treat as viral URI. Supportive care as directed, increase fluids and rest, Tylenol as directed, rx of Tullos, cool mist humidifier, throat lozenges. Discussed infection [...] condition. Feb, Sore throat (ICD-10 - J02.9) [facility] Other 10-15-2022 Evaluation note* Encounter Date Diagnosis [...] understanding and is agreeable with treatment plan [facility] Other 09-30-2022 Evaluation note* Encounter Date Diagnosis [...] no improvement in 2 to 3 days. [facility] Other 09-27-2022 Evaluation note* Encounter Date Diagnosis [...] treatment plan. 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 Other Summary Purpose Family History Relationship Condition [...] section and content) DATE CREATED AUTHOR 01/30/2018 [facility] DATE CREATED AUTHOR AUTHOR'S ORGANIZ ATION 08/17/2021 [facility] DATE CREATED AUTHOR AUTHOR'S ORGANIZ ATION 08/13/2022 [facility] DATE CREATED AUTHOR AUTHOR'S ORGANIZ ATION 09/03/2023 [facility] EPIC DATE CREATED AUTHOR AUTHOR'S ORGANIZ ATION 04/02/2024 [facility] REASON FOR VISIT (unrecogniz ed section and content) DYSURIADYSURIADYSURIAPOSS RA SH ON BACK, ITCHINGDODGE JOURNEY, SORE THROAT, COUGHBLACK DODGE JOURNT SORE THROATIN CAR, MOUTH SORES, CALL [phone] THROAT, COUGHING, DRAINAGE Care Teams (unrecognized sec tion and content) Team Status: Active Member Role Status Dates Shelly May Primary Care Provider Active Team Status: Inactive Member Role Status Dates Shelly May Primary Care Provider Active Start: August 30, 2023 End: August 30, 2023 Lindsay Soria APRN Attending Provider Active Start: August 30, 2023 End: August 30, 2023 Toxicology Supervisor Relationship Specialty Start Date End Date Ramon Carroll MD [address] [facility] [address] [place] [address] PCP - Amy FERREIRA 04/08/21 Ramon Carroll MD [address] [facility] [address] [place] [address] PCP - General Internal Medicine 08/06/22 Toxicology Supervisor Relationship Specialty Start Date End Date Ramon Carroll MD [address] [facility] [address] [place] [address] PCP - Amy FERREIRA 04/08/21 Ramon Carroll MD [address] [facility] [address] [place] [address] PCP - General Internal Medicine 08/06/22 Toxicology Supervisor Relationship Specialty Start Date End Date Ramon Carroll MD [address] [facility] [address] [place] [address] PCP - Amy FERREIRA 04/08/21 Ramon Carroll MD [address] [facility] [address] [place] [address] PCP - General Internal Medicine 08/06/22 Goals [...] BE BASED ON THE PRIMARY CLINICAL RECORDS. [employer] provides no warranty or guarantee of the accuracy or completeness of information in this document.
[2024-05-21 07:06] LABS: Basophils Percent Auto 0.2 % (0.2-2.0); Eosinophils Absolute Auto 0.2 10^3/uL (0.0-0.7); Eosinophils Percent Auto 2.7 % (0.9-7.0); Hematocrit 46.2 % (36.0-48.0); Hemoglobin 14.8 g/dL (12.0-16.0); Immature Granulocytes Abs Auto 0.01 10^3/uL (0.00-0.03); Immature Granulocytes Pct Auto 0.2 % (0.0-0.5); Lymphocytes Absolute Auto 1.4 10^3/uL (1.2-3.8); Lymphocytes Percent Auto 22.2 % (20.5-60.0); Mean Corpuscular Hemoglobin 30.6 pg (26.7-34.0); Mean Corpuscular Volume 95.7 fL (81.0-99.0); Mean Platelet Volume 11.1 fL (9.5-13.5); Monocytes Absolute Auto 0.7 10^3/uL (0.3-0.8); Monocytes Percent Auto 10.3 % (1.7-12.0); Neutrophils Absolute Auto 4.1 10^3/uL (1.4-6.5); Neutrophils Percent Auto 64.4 % (43.0-75.0); Platelet Count 219 10^3/uL (150-450); Red Blood Count 4.83 10^6/uL (4.20-5.40); Red Cell Distribution Width 14.6 % (11.0-15.0); White Blood Count 6.4 10^3/uL (4.0-11.0)
[2024-05-21 07:54] LABS: Estimated Average Glucose 114 mg/dL; Glycohemoglobin A1C 5.6 % (4.5-6.2)
[2024-05-21 08:00] LABS: Alanine Aminotransferase 16 U/L (14-59); Albumin Globulin Ratio 1.2; Albumin Level 3.8 g/dL (3.4-5.0); Alkaline Phosphatase 148 U/L (46-116); Anion Gap 12.1; Aspartate Amino Transferase 15 U/L (15-37); BUN Creatinine Ratio 18.8; Bilirubin Direct 0.1 mg/dL (0.0-0.2); Bilirubin Total 0.5 mg/dL (0.2-1.0); Calcium 9.6 mg/dL (8.5-10.1); Carbon Dioxide 28.2 mmol/L (21.0-32.0); Chloride 107 mmol/L (98-107); Chol HDL Ratio 2.4; Cholesterol 127 mg/dL (<=200); Estimated GFR (African America >60 (>=60 mL/min/1.73m^2); Estimated GFR (Non-African Ame 58 (>=60 mL/min/1.73m^2); Globulin 3.3 g/dL; Glucose 97 mg/dL (74-106); HDL Cholesterol 53 mg/dL (40-60); LDL Cholesterol Calculated 58.6 mg/dL; Magnesium 1.9 mg/dL (1.8-2.4); Phosphorus 3.5 mg/dL (2.6-4.7); Potassium 4.3 mmol/L (3.5-5.1); Sodium 143 mmol/L (136-145); Total Protein 7.1 g/dL (6.4-8.2); Triglycerides 77 mg/dL (<=150); Uric Acid 4.7 mg/dL (2.6-6.0); VLDL CHOLESTEROL 15.4 mg/dL
[2024-05-24 10:07] LABS: BKV DNA, Quant PCR, Plasma Negative (Negative)
== END 2024-05-21 06:40 | disposition home or self-care (01) ==
LOC: LAB 06:43
PROVIDERS: PCP Internal Medicine
DX: R73.01 Impaired fasting glucose (principal); Z94.0 Kidney transplant status
CPT/HCPCS: 36415; 80053; 80061; 80197; 82248; 83036; 83735; 84100; 84550; 85025; 87799

== ENCOUNTER 2024-06-14 06:37 | Outpatient (OUT) | payer MEDICARE, SELFPAY ==
--- OUTSIDE RECORDS SUMMARY | 2024-06-14 06:43 | XMS_ITS | CCD ---
Author Organization [facility] Care Team Providers Care Head Teacher Name Role Phone TUNUNAK, DINKAR Unavailable Unavailable TUNUNAK, DINKAR Unavailable Unavailable CARROLL, RAMON Unavailable Unavailable [...] Attending Unavailable MISC, DR OBRIEN Admitting Unavailable TUNUNAK, DR CONNORS Consulting Unavailable CARROLL, DR DARBY Primary Care Unavailable MISC, DR OBRIEN Attending Unavailable MISC, DR OBRIEN Admitting Unavailable MISC, DR OBRIEN Attending Unavailable MISC, DR OBRIEN Admitting Unavailable MISC, DR OBRIEN Consulting Unavailable CARROLL, DR DARBY Primary Care Unavailable TUNUNAK, DR CONNORS Consulting Unavailable TUNUNAK, DR CONNORS Attending Unavailable CARROLL, DR DARBY Primary Care Unavailable TUNUNAK, DR CONNORS Admitting Unavailable TUNUNAK, DR CONNORS Attending Unavailable CARROLL, DR DARBY Primary Care Unavailable TUNUNAK, DR CONNORS Admitting Unavailable TUNUNAK, DR CONNORS Consulting Unavailable MISC, DR OBRIEN [...] Unavailable CARROLL, DR DARBY Primary Care Unavailable TUNUNAK, DR CONNORS Consulting Unavailable TUNUNAK, DR CONNORS Attending Unavailable CARROLL, DR DARBY Primary Care Unavailable TUNUNAK, DR CONNORS Admitting Unavailable MISC, DOCTOR Attending Unavailable MISC, DR OBRIEN Admitting Unavailable MISC, DR OBRIEN Consulting Unavailable CARROLL, DR DARBY Primary Care Unavailable MISC, DOCTOR Attending Unavailable MISC, DR OBRIEN Admitting Unavailable MISC, DR OBRIEN Consulting Unavailable CARROLL, DR DARBY Primary Care Unavailable TUNUNAK, DR CONNORS Consulting Unavailable TUNUNAK, DR CONNORS Attending Unavailable DR DOE BRIDGES Admitting Unavailable DR RAMON CARROLL Primary Care Unavailable Ramon Carroll MD Unavailable [phone] aRmon Carroll MD Primary Care Provider VIRGIL HAYNES Attending Unavailable ASHLI CARTER Attending Unavailable ESTER PADILLA Attending Unavailable ESTER PADILLA Attending Unavailable Medications Current Medications Medication Drug Class(es) Dates Sig (Normalized) Sig (Original) [id number] 200 actuat albuterol 0.09 mg/actuat metered dose inhaler (1 source) beta2-Adrenergic Agonist Start: 12-28-2021 take 2 puff(s) by inhalation four times daily as needed Albuterol Sulfate HFA 108 (90 Base) MCG/ACT 2 puffs Inhalation 4 times a day prn 30 Nov, 2021 Active amLODIPine 5 mg oral tablet (19 sources) Dihydropyridine Calcium Channel Eleonora Start: 11-26-2022 take 1 tablet by mouth in the morning amLODIPine (Norvasc) 5 MG tablet Take 5 mg by mouth in the morning. 11/26/2022 Active amLODIPine Besyl ate Active amoxicillin 875 mg / clavulanate 125 mg oral tablet (2 sources) Penicillin-class Antibacterial Start: 06-01-2024 End: 06-08-2024 take 1 tablet by mouth in the morning amoxicillin-clavulanate (Augmentin) 875-125 MG tablet Indications: Acute non-recurrent pansinusitis Take 1 tablet (875 mg) by mouth in the morning and 1 tablet (875 mg) in the evening. Take with meals. Do all this for 7 days. 14 tablet 06/01/2024 06/08/2024 Active atorvastatin 20 mg oral tablet (10 sources) HMG-CoA Reductase Inhibitor Start: 08-30-2023 take 20 mg by mouth once daily at bedtime Atorvastatin Active 20 MG PO Daily at bedtime August 30, 2023 12:00am baclofen 10 mg oral tablet (9 sources) gamma-Aminobutyric Acid-ergic Agonist Start: 03-06-2023 take 1 tablet by mouth twice daily as needed for muscle spasms baclofen (Lioresal) 10 MG tablet Indications: Trapezius muscle spasm Take 1 tablet (10 mg) by mouth 2 (two) times a day as needed for muscle spasms 60 tablet 5 04/19/2024 Active Calcium (8 sources) Phosphate Binder, Calcium [...] 12 hrs for 5 day(s) July, Active codeine phosphate 2 mg/ml / guaiFENesin 20 mg/ml oral solution (2 sources) Opioid Agonist Start: 06-01-2024 End: 06-08-2024 take 10 mL by mouth every six hours for cough guaiFENesin-codeine (Robitussin-AC) 100-10 MG/5ML syrup Indications: Acute bronchitis, unspecified organism Take 10 mL by mouth every 6 (six) hours if needed for cough for up to 7 days 280 mL 06/01/2024 06/08/2024 Active dextromethorphan hydrobromide 1.5 mg/ml / pyrilamine maleate 1.5 mg/ml oral solution (1 source) Uncompetitive H-lhsefl-V-asparta te Receptor Antagonist, Sigma-1 Agonist Start: 03-27-2023 take 10 mL by mouth every eight hours Traer DM 7.5-7.5 MG/5ML 10 mL Orally every 8 hours for 5 days Feb, Active ergocalciferol 1.25 mg oral capsule (9 sources) Provitamin D2 Compound Start: 06-27-2011 take 1 capsule by mouth every week Vitamin D (Ergocalciferol) 35365 UNIT 1 capsule Orally Once a Week for 90 days May, Active Start: 06-27-2011 everolimus (6 sources) Kinase Inhibitor, mTOR Inhibitor Immunosuppressant Zortress Active ferrous fumarate 325 mg oral tablet (10 sources) Start: Ferrous Fumarate 325 (106 Fe) [...] day for 30 day(s) Active Fish Oils (18 sources) omega-3 (fish oi l) 435 MG [...] 12:00am magnesium oxide 400 mg oral capsule (18 sources) magnesium oxide 400 MG capsule Take [...] acid 180 mg delayed release oral tablet (9 sources) Antimetabolite Immunosuppressant Start: 01-27-2023 take 3 tablets by mouth in the morning mycophenolate (Myfortic) 180 MG EC tablet Take 3 tablets by mouth in the morning and 3 tablets before bedtime. 01/27/2023 Active nystatin 169078 unt/ml oral suspension (10 sources) Polyene Antifungal Start: 09-02-2023 take 5 mL by mouth four times daily nystatin (Mycostatin) [id number] UNIT/ML suspension Indications: Thrush, oral SWISH AND SWALLOW 5 MLS ORALLY 4 TIMES A DAY FOR 10 DAYS 60 mL 1 09/02/2023 Active Start: 08-30-2023 take 1 mL by mouth f our times daily Nystatin Active 5 ML PO Four times daily 200 10 August 30, 2023 12:00am swish and swallow [place] 7-Woc-Jih-Fish Oil (Fish Oil) 1,000 mg (120 mg-180 mg) capsule (1 source) Start: 08-30-2023 take 1 capsule by mouth once daily [place] 2-Tnu-Vyt-Fish Oil (Fish Oil) 1,000 mg (120 mg-180 mg) capsule Active 1 CAP PO Daily August 30, 2023 12:00am PARoxetine hydrochloride 20 mg oral tablet (10 sources) Serotonin Reuptake Inhibitor Start: 08-30-2023 Paroxetine [...] day for 2 day(s) July, Active Potassium (18 sources) Potassium 99 MG tablet 1 (one) [...] 2023 12:00am spironolactone 25 mg oral tablet (19 sources) Aldosterone Antagonist Start: 08-30-2023 take 25 mg by mouth once daily Spironolactone Active 25 MG PO Daily August 30, 2023 12:00am Spironolactone A ctive tacrolimus 0.5 mg oral capsule (19 sources) Calcineurin Inhibitor Immunosuppressant Start: 01-24-2023 tacrolimus [...] day for 30 day(s) Active vitamin B12 (12 sources) Vitamin B12 Start: 08-30-2023 take 1 [...] Start: 12-25-2021 take 1 capsule by mo uth every eight hours Tessalon Perles 100 MG [...] Problem Classification Problem Date Documented Date Episodic/Chronic Acute bronchitis (2 sources) Acute bronchitis; Translations: [Acute bronchitis, unspecified] 06-01-2024 Episodic Administrative/socia l admission (2 sources) Patient encounter status; Translations: [Other specified counseling] 06-01-2024 Episodic Anxiety disorders (14 sources) Mixed anxiety and depressive disorder; Translations: [...] Onset: 5 Episodic Disorders of lipid metabolism (15 sources) Hyperlipidemia, unspecified; Translations: [Hypercholesterolemia] Onset: 2 08-30-2023 Chronic Essential hypertension (18 sources) Hypertensive disorder; Translations: [HTN] Onset: 2 08-30-2023 Chronic Fluid and electrolyte disorders (3 sources) Hyperosmolality and or hypernatremia; Translations: [Hyperosmolality and/or hypernatremia] Episodic Genitourinary congenital anomalies (15 sources) Multiple congenital cysts of kidney; Translations: [Polycystic kidney, unspecified type] Onset: 4 08-30-2023 Chronic Immunity disorders (5 sources) Immunosuppression; Translations: [Immunodeficiency, unspecified] Onset: 5 06-01-2024 Chronic Immunizations and screening for infectious disease (6 sources) Contact with and (suspected) exposure to other viral communicable diseases; Translations: [Contact with and (suspected) exposure to other viral communicable diseases] Episodic Menopausal disorders (11 sources) Decreased estrogen level; 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-2023 Chronic Mood disorders (11 sources) Moderate major depression, single episode; Translations: [Major depressive disorder, single episode, moderate] Onset: 3 03-06-2023 Chronic Other acquired deformities (11 sources) Contracture of joint of foot; Translations: [...] insufficiency; 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, secondary, 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 Other liver diseases (11 sources) Alkaline phosphatase raised; Translations: [Abnormal levels of other serum enzymes] Onset: 3 01-29-2023 Episodic Other nutritional; endocrine; and metabolic disorders (3 sources) Hyperphosphatemia; Translations: [Hyperphosphatemia] Chronic Other nutritional; endocrine; and metabolic disorders (5 sources) Hypomagnesemia; Translations: [Hypomagnesemia] Onset: 5 06-01-2024 Chronic Other screening for suspected conditions (not mental disorders or infectious disease) (15 sources) Encounter for screening mammogram for malignant neoplasm of breast; Translations: [Full blood count abnormal] Onset: 3 Episodic Other upper respiratory disease (1 source) Dysphonia Episodic Other upper respiratory infections (12 sources) Acute upper respiratory infection, unspecified; Translations: [...] te Episodic/Chronic Diseases of mouth; excluding dental (10 sources) Other lesions of oral mucosa; Translations: [Parotitis] Onset: 01-29-2023 Resolved: 01-30-2023 Episodic Genitourinary symptoms and ill-defined conditions (10 sources) Hematuria, unspecified; Translations: [Dysuria] Onset: 12-31-2017 Resolved: 08-14-2021 Episodic Mood disorders (9 sources) Mood disorders Onset: 01-30-2023 Resolved: 06-01-2024 01-30-2023 Mycoses (11 sources) Candidiasis of mouth; Translations: [Candidal stomatitis] Onset: 09-02-2023 Resolved: 06-01-2024 08-30-2023 Episodic Other aftercare (1 source) Encounter for therapeutic drug level monitoring; Translations: [ENCOUNTER FOR THERAPEUTIC DRUG LEVEL MONITORING] Onset: 03-27-2017 Episodic Other aftercare (2 sources) Other custodial (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 therapy; Translations: [OTHER SHELTER (CURRENT) DRUG THERAPY] Onset: 02-26-2017 Episodic Other skin disorders (1 source) Rash and other nonspecific skin eruption Onset: 10-27-2021 Resolved: 10-27-2021 Episodic Other upper respiratory infections (9 sources) Sinusitis; Translations: [Chronic sinusitis, unspecified] Onset: [...] WITH AUTO DIFFon BASOPHILS ABSOLUTE AUTO 0 [facility] Basophils/100 WBC (Bld) 0.2 % 0.2 - 2.0 % [facility] Eosinophils/100 WBC (Bld) 2.7 % 0.9 - 7.0 % [facility] Erythrocyte distribution width (RBC) [Ratio] 14.6 % 11.0 - 15.0 % [facility] Hematocrit (Bld) [Volume fraction] 46.2 % 36.0 - 48.0 % [facility] Hemoglobin (Bld) [Mass/Vol] 14.8 g/dL 12.0 - 16.0 g/dL [facility] IMMATURE GRANULOCYTES ABS AUTO 0.01 [facility] Immature granulocytes/100 WBC (Bld) 0.2 % 0.0 - 0.5 % [facility] LYMPHOCYTES ABSOLUTE AUTO 1.4 [facility] Lymphocytes/100 WBC (Bld) 22.2 % 20.5 - 60.0 % [facility] MCH (RBC) [Entitic mass] 30.6 pg 26.7 - 34.0 pg [facility] MCHC (RBC) [Mass/Vol] 32 g/dL 29.9 - 35.2 g/dL [facility] MCV (RBC) [Entitic vol] 95.7 fL 81.0 - 99.0 fL [facility] MONOCYTES ABSOLUTE AUTO 0.7 [facility] Monocytes/100 WBC (Bld) 10.3 % 1.7 - 12.0 % [facility] NEUTROPHILS ABSOLUTE AUTO 4.1 [facility] Neutrophils/100 WBC (Bld) 64.4 % 43.0 - 75.0 % [facility] Platelet mean volume (Bld) [Entitic vol] 11.1 fL 9.5 - 13.5 fL [facility] TBH EO # 0.2 [facility] TB PLT 219 [facility] TB RBC 4.83 [facility] WBC 6.4 [facility] ALL CBC WITH AUTO DIFFon BASOPHILS ABSOLUTE AUTO 0 [facility] Basophils/100 WBC (Bld) 0.3 % 0.2 - 2.0 % [facility] Eosinophils/100 WBC (Bld) 2.8 % 0.9 - 7.0 % [facility] Erythrocyte distribution width (RBC) [Ratio] 14.9 % 11.0 - 15.0 % [facility] Hematocrit (Bld) [Volume fraction] 44.3 % 36.0 - 48.0 % [facility] Hemoglobin (Bld) [Mass/Vol] 14.2 g/dL 12.0 - 16.0 g/dL [facility] IMMATURE GRANULOCYTES ABS AUTO 0.02 [facility] Immature granulocytes/100 WBC (Bld) 0.3 % 0.0 - 0.5 % [facility] Interpretation and review of laboratory results Abnormal [facility] LYMPHOCYTES ABSOLUTE AUTO 1.2 [facility] Lymphocytes/100 WBC (Bld) 17.3 % Low 20.5 - 60.0 % [facility] MCH (RBC) [Entitic mass] 30.5 pg 26.7 - 34.0 pg [facility] MCHC (RBC) [Mass/Vol] 32.1 g/dL 29.9 - 35.2 g/dL [facility] MCV (RBC) [Entitic vol] 95.3 fL 81.0 - 99.0 fL [facility] MONOCYTES ABSOLUTE AUTO 0.7 [facility] Monocytes/100 WBC (Bld) 9.4 % 1.7 - 12.0 % [facility] NEUTROPHILS ABSOLUTE AUTO 5 [facility] Neutrophils/100 WBC (Bld) 69.9 % 43.0 - 75.0 % [facility] Platelet mean volume (Bld) [Entitic vol] 11.5 fL 9.5 - 13.5 fL [facility] TB EO # 0.2 [facility] PLT 210 [facility] RBC 4.65 [facility] TB WBC 7.1 [facility] 29on 04-01-2024 29 Addended by: ESTER FREDERICK on: 04/01/2024 02:20 PM Modules accepted: Orders Normal [facility] Follow-Upon 04-01-2024 Follow-Up [id number] Tanika Grimm 1955 F Date Provider Department Center 04/01/2024 [id number] CARTER TXGely None Family History Family Status - Relation Status Age at Mother Father Level of Service:94918 CT OFFICE/OUTPATIENT ESTABLISHED MOD MDM 30 MIN Reason for Visit and Comments: Kidney Follow-up [] - Pt has no concerns at this time. Normal [facility] ALL CBC WITH AUTO DIFFon BASOPHILS ABSOLUTE AUTO 0 [facility] Basophils/100 WBC (Bld) 0.2 % 0.2 - 2.0 % [facility] Eosinophils/100 WBC (Bld) 2.2 % 0.9 - 7.0 % [facility] Erythrocyte distribution width (RBC) [Ratio] 14.8 % 11.0 - 15.0 % [facility] Hematocrit (Bld) [Volume fraction] 45.3 % 36.0 - 48.0 % [facility] Hemoglobin (Bld) [Mass/Vol] 14.4 g/dL 12.0 - 16.0 g/dL [facility] IMMATURE GRANULOCYTES ABS AUTO 0.02 [facility] Immature granulocytes/100 WBC (Bld) 0.2 % 0.0 - 0.5 % [facility] Interpretation and review of laboratory results Abnormal [facility] LYMPHOCYTES ABSOLUTE AUTO 1.5 [facility] Lymphocytes/100 WBC (Bld) 18.6 % Low 20.5 - 60.0 % [facility] MCH (RBC) [Entitic mass] 30.6 pg 26.7 - 34.0 pg [facility] MCHC (RBC) [Mass/Vol] 31.8 g/dL 29.9 - 35.2 g/dL [facility] MCV (RBC) [Entitic vol] 96.4 fL 81.0 - 99.0 fL [facility] MONOCYTES ABSOLUTE AUTO 0.8 [facility] Monocytes/100 WBC (Bld) 10 % 1.7 - 12.0 % [facility] NEUTROPHILS [facility]OLUTE [facility] Neutrophils/[facility] WBC (Bld) 68.8 % 43.0 - 75.0 % [facility] Platelet mean volume (Bld) [Entitic vol] 11.4 fL 9.5 - 13.5 fL [facility] TBH EO # 0.2 [facility] TBH PLT 197 [facility] TB RBC 4.7 [facility] TA[facility] (FK506), BLOODon 02-17-2024 TACROLIMUS (FK506), BLOOD 4.5 ng/mL 2.0 - 20.0 ng/mL [facility] Comment on above: This test was develo ped and its performance characteristics determined by [facility]. It has not been cleared or approved by the Food and Drug Administration. Trough (immediately following transplant) 15.0 Trough (steady state, 2 weeks or more after transplant): 3.0 - 8.0 Performed by LC-MS/MS technology. Performed at: [address] [id number] Crab Steamer: Marizol Singleton MD, Phone: [phone] [facility] ALL CBC WITH AUTO DIFFon BASOPHILS ABSOLUTE AUTO 0 [facility] Basophils/100 WBC (Bld) 0.3 % 0.2 - 2.0 % [facility] Eosinophils/100 WBC (Bld) 2.1 % 0.9 - 7.0 % [facility] Erythrocyte distribution width (RBC) [Ratio] 14.7 % 11.0 - 15.0 % [facility] Hematocrit (Bld) [Volume fraction] 43.3 % 36.0 - 48.0 % [facility] Hemoglobin (Bld) [Mass/Vol] 14.2 g/dL 12.0 - 16.0 g/dL [facility] IMMATURE GRANULOCYTES ABS AUTO 0.03 [facility] Immature granulocytes/100 WBC (Bld) 0.4 % 0.0 - 0.5 % [facility] LYMPHOCYTES ABSOLUTE AUTO 1.4 [facility] Lymphocytes/100 WBC (Bld) 20.7 % 20.5 - 60.0 % [facility] MCH (RBC) [Entitic mass] 30.9 pg 26.7 - 34.0 pg [facility] MCHC (RBC) [Mass/Vol] 32.8 g/dL 29.9 - 35.2 g/dL [facility] MCV (RBC) [Entitic vol] 94.1 fL 81.0 - 99.0 fL [facility] MONOCYTES ABSOLUTE AUTO 0.7 [facility] Monocytes/100 WBC (Bld) 10.8 % 1.7 - 12.0 % [facility] NEUTROPHILS ABSOLUTE AUTO 4.4 [facility] Neutrophils/100 WBC (Bld) 65.7 % 43.0 - 75.0 % [facility] Platelet mean volume (Bld) [Entitic vol] 11.3 fL 9.5 - 13.5 fL [facility] TBH EO # 0.1 [facility] TBH PLT 193 [facility] RBC 4.6 [facility] WBC 6.7 [facility] ALL MAGNESIUMon 02-13-2024 Magnesium [Mass/Vol] 1.7 mg/dL Low 1.8 - 2 .4 mg/dL [facility] ALL PHOSPHOROUSon 02-13-2024 Phosphate [Mass/Vol] 3.4 mg/dL 2.6 - 4 .7 mg/dL [facility] ALL URIC ACIDon 02-13-2024 Urate [Mass/Vol] 4.7 mg/dL 2.6 - 6.0 mg/dL [facility] CMP (CMP) (FOR REMOTE FH C USE)on 02-13-2024 Albumin [Mass/Vol] 3.6 g/dL 3.4 - 5.0 g/dL [facility] ALBUMIN GLOBULIN RATIO 1.2 [facility] ALP [Catalytic activity/Vol] 131 U/L High 46 - 116 U/L [facility] ALT [Catalytic activity/Vol] 16 U/L 14 - 59 U/L [facility] Anion gap [Moles/Vol] 14 mmol/L [facility] AST [Catalytic activity/Vol] 13 U/L Low 15 - 37 U/L [facility] Bilirubin [Mass/Vol] 0.6 mg/dL 0.2 - 1 .0 mg/dL [facility] Calcium [Mass/Vol] 9.1 mg/dL 8.5 - 10. 1 mg/dL [facility] Chloride [Moles/Vol] 108 mmol/L High 98 - 10 7 mmol/L [facility] CO2 [Moles/Vol] 26.1 mmol/L 21.0 - 32.0 mmol/L [facility] Creatinine [Mass/Vol] 0.97 mg/dL 0.55 - 1.02 mg/dL [facility] GFR/1.73 sq M.predicted CKD-EPI (S/P/Bld) [Vol rate/Area] >60 >=60 mL/min/1.73m 2 [facility] Globulin (S) [Mass/Vol] 2.9 g/dL [facility] Glucose [Mass/Vol] 95 mg/dL 74 - 106 mg/dL [facility] Potassium [Moles/Vol] 4.1 mmol/L 3.5 - 5.1 mmol/L [facility] Protein [Mass/Vol] 6.5 g/dL 6.4 - 8.2 g/dL [facility] Sodium [Moles/Vol] 144 mmol/L 136 - 145 mmol/L [facility] TBH EGFR-NON AF [facility] 57 Low >=60 mL/min/1.73m 2 [facility] Urea nitrogen [Mass/Vol] 16 mg/dL 7.0 - 18.0 mg/dL [facility] Urea nitrogen/Creatinine [Mass ratio] 16.5 mg/mg [facility] METRO BILIRUBIN, DIRECTon Bilirubin.indirect [Mass/Vol] 0.1 mg/dL 0.0 - 0.2 mg/dL [facility] No Panel Informationon 02-12 Interpretation and review of laboratory results Abnormal [facility] ALL CBC WITH AUTO DIFFon BASOPHILS ABSOLUTE AUTO 0 [facility] Basophils/100 WBC (Bld) 0.1 % Low 0.2 - 2.0 % [facility] Eosinophils/100 WBC (Bld) 2.5 % 0.9 - 7.0 % [facility] Erythrocyte distribution width (RBC) [Ratio] 14.6 % 11.0 - 15.0 % [facility] Hematocrit (Bld) [Volume fraction] 43.8 % 36.0 - 48.0 % [facility] Hemoglobin (Bld) [Mass/Vol] 14 g/dL 12.0 - 16.0 g/dL [facility] IMMATURE GRANULOCYTES ABS AUTO 0.02 [facility] Immature granulocytes/100 WBC (Bld) 0.3 % 0.0 - 0.5 % [facility] Interpretation and review of laboratory results Abnormal [facility] LYMPHOCYTES ABSOLUTE AUTO 1.4 [facility] Lymphocytes/100 WBC (Bld) 18.7 % Low 20.5 - 60.0 % [facility] MCH (RBC) [Entitic mass] 30.3 pg 26.7 - 34.0 pg [facility] MCHC (RBC) [Mass/Vol] 32 g/dL 29.9 - 35.2 g/dL [facility] MCV (RBC) [Entitic vol] 94.8 fL 81.0 - 99.0 fL [facility] MONOCYTES ABSOLUTE AUTO 0.8 [facility] Monocytes/100 WBC (Bld) 11.1 % 1.7 - 12.0 % [facility] NEUTROPHILS ABSOLUTE AUTO 4.9 [facility] Neutrophils/100 WBC (Bld) 67.3 % 43.0 - 75.0 % [facility] Platelet mean volume (Bld) [Entitic vol] 11.2 fL 9.5 - 13.5 fL [facility] RBC 4.62 [facility] WBC 7.3 [facility] ALL CBC WITH AUTO DIFFon BASOPHILS ABSOLUTE AUTO 0.0 [facility] Basophils/100 WBC (Bld) 0.3 % 0.2 - 2.0 % [facility] Eosinophils/100 WBC (Bld) 3.6 % 0.9 - 7.0 % [facility] Erythrocyte distribution width (RBC) [Ratio] 14.7 % 11.0 - 15.0 % [facility] Hematocrit (Bld) [Volume fraction] 46.0 % 36.0 - 48.0 % [facility] Hemoglobin (Bld) [Mass/Vol] 14.7 g/dL 12.0 - 16.0 g/dL [facility] IMMATURE GRANULOCYTES ABS AUTO 0.01 [facility] Immature granulocytes/100 WBC (Bld) 0.2 % 0.0 - 0.5 % [facility] LYMPHOCYTES ABSOLUTE AUTO 1.4 [facility] Lymphocytes/100 WBC (Bld) 22.4 % 20.5 - 60.0 % [facility] MCH (RBC) [Entitic mass] 30.1 pg 26.7 - 34.0 pg [facility] MCHC (RBC) [Mass/Vol] 32.0 g/dL 29.9 - 35.2 g/dL [facility] MCV (RBC) [Entitic vol] 94.3 fL 81.0 - 99.0 fL [facility] MONOCYTES ABSOLUTE AUTO 0.6 [facility] Monocytes/100 WBC (Bld) 9.6 % 1.7 - 12.0 % [facility] NEUTROPHILS ABSOLUTE AUTO 3.9 [facility] Neutrophils/100 WBC (Bld) 63.9 % 43.0 - 75.0 % [facility] Platelet mean volume (Bld) [Entitic vol] 11.6 fL 9.5 - 13.5 fL [facility] TBH EO # 0.2 [facility] TBH PLT 202 [facility] TB RBC 4.88 [facility] WBC 6.0 [facility] MLR HEMOGLOBIN A1Con 024 Glucose [Mass/Vol] 108 mg/dL [facility] HbA1c (Bld) [Mass fraction] 5.4 % 4.5 - 6.2 % [facility] Comment on above: ADA RECOMMENDED LIMI T 4.0 - 6.0 ADA THERAPEUTIC TARGET < 7.0 ACTION SUGGESTED > 7.0 [facility]ation[facility] 12-09-2023 Documentation [id number] Tanika Grimm 1955 Provider Department Center 12/09/2023 86FERNANDA MASON TXGely None Family History Family Status - Relation Status Age at Mother Father Reason for Visit and Comments: Prior auth : Mycophenolate [Other] [facility] Documentationon 11-26-2023 Documentation [id number] Epstein 1955 [facility] 11/26/2023 FERNANDA MARVIN TXGely None Family History Family Status - Relation Status Age at Mother Father Reason for Visit and Comments: Prior auth Tac 0.5mg [Other] [facility] Documentationon 10-27-2023 Documentation [id number] Tanika Grimm 1955 Provider Department Center 10/27/2023 750-ANEL MIRANDA TXGely None Family History Family Status - Relation Status Age at Mother Father [facility] 29on 09-23-2023 29 Addended by: DIANE LE on: 09/23/2023 03:27 PM Modules accepted: Orders [facility] Follow-Upon 09-23-2023 Follow-Up [id number] Tanika Grimm 1955 Provider Department Center 09/23/2023 124-VIRGIL HAYNES TXP None Family History Family Status - Relation Status Age at Mother Father Level of Service:52470 CT OFFICE/OUTPATIENT ESTABLISHED MOD MDM 30 MIN Reason for Visit and Comments: Kidney Follow-up [[id number]] - Pt has been having sores in her mouth for the past month. Normal [facility] No Panel InformationOrdered By: Lindsay Soria on 08-30-2023 Quick Strep (POC) [facility] Documentationon 08-26-2023 Documentation [id number] Adan Grimmbobo Shabazz 1955 F Date Provider Department Center 08/26/2023 750-RUTH, TYMARA TXP None No family history on file [facility] Documentationon 05-19-2023 Documentation [id number] Adan Grimmbobo Shabazz 1955 F Date Provider Department Center 05/19/2023 750-RUTH, TYMARA TXP None No family history on file [facility] COVID/FLU/RSV RT-PCRon 03-27 SARS-CoV-2 (COVID-19) RNA MURALI+probe Ql (Unsp spec) Negative [facility] [employer] Other COVID/FLU/RSV RT-PCR Negative [facility] [employer] Other Quick Strepon 03-27-2023 S. pyogenes Org specific cx Ql (Throat) Negative [facility] [employer] Other Quick Strep [facility] [employer] Other BILIRUBIN CONJUGATED (DIRECT )on 08-12-2022 BILI, CONJUGATED 0.1 mg/dL Normal 0.0-0.2 [facility] Comment on above: Performed By: #### D DAVIDSON, MG, PHOS, CMP, LIPID, URIC #### [facility] [address] [place] [address] Dr. Sarmad Patino GLYCOHEMOGLOBIN A1Con 2022 ADA RECOMMENDATION SEE BELOW Normal [facility] Comment on above: Result Comment: ADA RECOMMENDED LIMIT 4.0 - 6.0 ADA THERAPEUTIC TARGET < 7.0 ACTION SUGGESTED > 7.0 Performed By: #### D DAVIDSON, MG, PHOS, CMP, LIPID, URIC #### [facility] [address] [address] [address] Sarmad Patino Glucose [Mass/Vol] 108 mg/dL Normal [facility] Comment on above: Performed By: #### D DAVIDSON, MG, PHOS, CMP, LIPID, URIC #### [facility] [address] [address] [address] Sarmad Patino HbA1c (Bld) [Mass fraction] 5.4 % Normal 4.5-6.2 [facility] Comment on above: Performed By: #### D DAVIDSON, MG, PHOS, CMP, LIPID, URIC #### [facility] [address] [address] [address] Sarmad Patino MAGNESIUMon 08-12-2022 Magnesium [Mass/Vol] 1.7 mg/dL Critically low 1.8-2.4 [facility] Comment on above: Performed By: #### D DAVIDSON, MG, PHOS, CMP, LIPID, URIC #### [facility] [address] [place] [address] Dr. Sarmad Patino PHOSPHORUSon 08-12-2022 Phosphate [Mass/Vol] 3.9 mg/dL Normal 2.6-4.7 [facility] Comment on above: Performed By: #### U JUVE, LIPID, MG, CMP, DBIL, PHOS #### [facility] [address] [place] [address] Dr. Sarmad Patino PROF 14(COMP METB)on 023 Albumin [Mass/Vol] 3.9 g/dL Normal 3.4-5.0 [facility] Comment on above: Performed By: #### D DAVIDSON, MG, PHOS, CMP, LIPID, URIC #### [facility] [address] [place] [address] Dr. Sarmad Patino Albumin/Globulin [Mass ratio] 1.2 {ratio} Normal [facility] Comment on above: Performed By: #### D DAVIDSON, MG, PHOS, CMP, LIPID, URIC #### [facility] [address] [address] [address] Sarmad Patino ALP [Catalytic activity/Vol] 126 U/L Critically high 46-116 [facility] Comment on above: Performed By: #### D DAVIDSON, MG, PHOS, CMP, LIPID, URIC #### [facility] [address] [address] [address] Sarmad Patino ALT [Catalytic activity/Vol] 18 U/L Normal 14-59 [facility] Comment on above: Performed By: #### D DAVIDSON, MG, PHOS, CMP, LIPID, URIC #### [facility] [address] [address] [address] Sarmad Patino Anion gap [Moles/Vol] 10.4 mmol/L Normal [facility] Comment on above: Performed By: #### D DAVIDSON, MG, PHOS, CMP, LIPID, URIC #### [facility] [address] [place] [address] Dr. Sarmad Patino AST [Catalytic activity/Vol] 14 U/L Critically low 15-37 [facility] Comment on above: Performed By: #### D DAVIDSON, MG, PHOS, CMP, LIPID, URIC #### [facility] [address] [address] [address] Sarmad Patino Bilirubin [Mass/Vol] 0.7 mg/dL Normal 0.2-1.0 [facility] Comment on above: Performed By: #### D DAVIDSON, MG, PHOS, CMP, LIPID, URIC #### [facility] [address] [place] [address] Dr. Sarmad Patino Calcium [Mass/Vol] 9.8 mg/dL Normal 8.5-10.1 [facility] Comment on above: Performed By: #### D DAVIDSON, MG, PHOS, CMP, LIPID, URIC #### [facility] [address] [address] [address] Sarmad Patino Chloride [Moles/Vol] 106 mmol/L Normal 98-107 [facility] Comment on above: Performed By: #### D DAVIDSON, MG, PHOS, CMP, LIPID, URIC #### [facility] [address] [address] [address] Sarmad Patino CO2 [Moles/Vol] 32.1 mmol/L Critically high 21.0-32.0 [facility] Comment on above: Performed By: #### D DAVIDSON, MG, PHOS, CMP, LIPID, URIC #### [facility] [address] [address] [address] Sarmad Patino Creatinine [Mass/Vol] 0.92 mg/dL Normal 0.55-1.02 [facility] Comment on above: Performed By: #### D DAVIDSON, MG, PHOS, CMP, LIPID, URIC #### [facility] [address] [place] [address] Dr. Sarmad Patino EGFR-AF [facility] LUCIAN >60 Normal >=60 [facility] Comment on above: Performed By: #### D DAVIDSON, MG, PHOS, CMP, LIPID, URIC #### [facility] [address] [place] [address] Dr. Sarmad Patino EGFR-NON AF [facility] LUCIAN >60 Normal >=60 [facility] Comment on above: Performed By: #### D DAVIDSON, MG, PHOS, CMP, LIPID, URIC #### [facility] [address] [place] [address] Dr. Sarmad Patino Globulin (S) [Mass/Vol] 3.3 g/dL Normal [facility] Comment on above: Performed By: #### D DAVIDSON, MG, PHOS, CMP, LIPID, URIC #### [facility] [address] [place] [address] Dr. Sarmad Patino Glucose [Mass/Vol] 102 mg/dL Normal 74-106 [facility] Comment on above: Performed By: #### D DAVIDSON, MG, PHOS, CMP, LIPID, URIC #### [facility] [address] [place] [address] Dr. Sarmad Patino Potassium [Moles/Vol] 4.5 mmol/L Normal 3.5-5.1 [facility] Comment on above: Performed By: #### D DAVIDSON, MG, PHOS, CMP, LIPID, URIC #### [facility] [address] [place] [address] Dr. Sarmad Patino Protein [Mass/Vol] 7.2 g/dL Normal 6.4-8.2 [facility] Comment on above: Performed By: #### D DAVIDSON, MG, PHOS, CMP, LIPID, URIC #### [facility] [address] [address] [address] Sarmad Patino Sodium [Moles/Vol] 144 mmol/L Normal 136-145 [facility] Comment on above: Performed By: #### D DAVIDSON, MG, PHOS, CMP, LIPID, URIC #### [facility] [address] [address] [address] Sarmad Patino Urea nitrogen [Mass/Vol] 20.0 mg/dL Critically high 7.0-18.0 [facility] Comment on above: Performed By: #### D DAVIDSON, MG, PHOS, CMP, LIPID, URIC #### [facility] [address] [address] [address] Sarmad Patino Urea nitrogen/Creatinine [Mass ratio] 21.7 mg/mg Normal [facility] Comment on above: Performed By: #### D DAVIDSON, MG, PHOS, CMP, LIPID, URIC #### [facility] [address] [address] [address] Sarmad Patino URIC ACID SERUMon 08-12-2022 Urate [Mass/Vol] 5.2 mg/dL Normal 2.6-6.0 [facility] Comment on above: Performed By: #### D DAVIDSON, MG, PHOS, CMP, LIPID, URIC #### [facility] [address] [address] [address] Sarmad Patino MG MAMM SCREEN 3D DAVIDSON CADon 07-23-2022 MG MAMM SCREEN 3D DAVIDSON CAD Patient: TANIKA GRIMM Exam Date: 07/23/2022 : 1955 Gender:F Ordering : DR RAMON CARROLL M.D. Admission #: [id number] Family : Order #: [id number] CLICK HERE TO VIEW EXAM RADIOLOGY REPORT [...] Family Cancers None LOCATION: [facility] BREAST COMPOSITION: Extremely dense, which lowers the [...] Bernard M.D. on 07/23/2022 at 16:59 Normal [facility] FK506 (TACROLIMUS) WHOLE BLO ODon 07-10-2022 Tacrolimus (FK506), Blood 3.8 ng/mL Normal 2.0-20.0 [facility] Comment on above: Result Comment: Trou gh (immediately following transplant) 15.0 . Trough (steady state, 2 weeks or more after transplant): 3.0 - 8.0 . Performed by LC-MS/MS technology. Performed By: #### D DAVIDSON, MG, PHOS, CMP, LIPID, URIC #### [facility] [address] [place] [address] Dr. Sarmad Patino BILIRUBIN CONJUGATED (DIRECT )on 07-08-2022 BILI, CONJUGATED 0.1 mg/dL Normal 0.0-0.2 [facility] Comment on above: Performed By: #### U JUVE, LIPID, MG, CMP, DBIL, PHOS #### [facility] [address] [address] [address] Sarmad Patino GLYCOHEMOGLOBIN A1Con 2022 ADA RECOMMENDATION SEE BELOW Normal [facility] Comment on above: Result Comment: ADA RECOMMENDED LIMIT 4.0 - 6.0 ADA THERAPEUTIC TARGET < 7.0 ACTION SUGGESTED > 7.0 Performed By: #### D DAVIDSON, MG, PHOS, CMP, LIPID, URIC #### [facility] [address] [address] [address] Sarmad Patino Glucose [Mass/Vol] 105 mg/dL Normal [facility] Comment on above: Performed By: #### D DAVIDSON, MG, PHOS, CMP, LIPID, URIC #### [facility] [address] [place] [address] Dr. Sarmad Patino HbA1c (Bld) [Mass fraction] 5.3 % Normal 4.5-6.2 [facility] Comment on above: Performed By: #### D DAVIDSON, MG, PHOS, CMP, LIPID, URIC #### [facility] [address] [place] [address] Dr. Sarmad Patino MAGNESIUMon 07-08-2022 Magnesium [Mass/Vol] 1.8 mg/dL Normal 1.8-2.4 [facility] Comment on above: Performed By: #### U JUVE, LIPID, MG, CMP, DBIL, PHOS #### [facility] [address] [place] [address] Dr. Sarmad Patino PHOSPHORUSon 07-08-2022 Phosphate [Mass/Vol] 3.8 mg/dL Normal 2.6-4.7 [facility] Comment on above: Performed By: #### U JUVE, LIPID, MG, CMP, DBIL, PHOS #### [facility] [address] [place] [address] Dr. Sarmad Patino PROF 14(COMP METB)on 023 Albumin [Mass/Vol] 3.7 g/dL Normal 3.4-5.0 [facility] Comment on above: Performed By: #### U JUVE, LIPID, MG, CMP, DBIL, PHOS #### [facility] [address] [place] [address] Dr. Sarmad Patino Albumin/Globulin [Mass ratio] 1.1 {ratio} Normal [facility] Comment on above: Performed By: #### U JUVE, LIPID, MG, CMP, DBIL, PHOS #### [facility] [address] [place] [address] Dr. Sarmad Patino ALP [Catalytic activity/Vol] 124 U/L Critically high 46-116 [facility] Comment on above: Performed By: #### U JUVE, LIPID, MG, CMP, DBIL, PHOS #### [facility] [address] [place] [address] Dr. Sarmad Patino ALT [Catalytic activity/Vol] 20 U/L Normal 14-59 [facility] Comment on above: Performed By: #### U JUVE, LIPID, MG, CMP, DBIL, PHOS #### [facility] [address] [address] [address] Sarmad Patino Anion gap [Moles/Vol] 11.5 mmol/L Normal Th [facility] Comment on above: Performed By: #### U JUVE, LIPID, MG, CMP, DBIL, PHOS #### [facility] [address] [place] [address] Dr. Sarmad Patino AST [Catalytic activity/Vol] 12 U/L Critically low 15-37 [facility] Comment on above: Performed By: #### U JUVE, LIPID, MG, CMP, DBIL, PHOS #### [facility] [address] [place] [address] Dr. Sarmad Patino Bilirubin [Mass/Vol] 0.5 mg/dL Normal 0.2-1.0 [facility] Comment on above: Performed By: #### U JUVE, LIPID, MG, CMP, DBIL, PHOS #### [facility] [address] [place] [address] Dr. Sarmad Patino Calcium [Mass/Vol] 9.6 mg/dL Normal 8.5-10.1 [facility] Comment on above: Performed By: #### U JUVE, LIPID, MG, CMP, DBIL, PHOS #### [facility] [address] [place] [address] Dr. Sarmad Patino Chloride [Moles/Vol] 106 mmol/L Normal 98-107 [facility] Comment on above: Performed By: #### U JUVE, LIPID, MG, CMP, DBIL, PHOS #### [facility] [address] [place] [address] Dr. Sarmad Patino CO2 [Moles/Vol] 29.7 mmol/L Normal 21.0-32.0 [facility] Comment on above: Performed By: #### U JUVE, LIPID, MG, CMP, DBIL, PHOS #### [facility] [address] [address] [address] Sarmad Patino Creatinine [Mass/Vol] 0.77 mg/dL Normal 0.55-1.02 [facility] Comment on above: Performed By: #### U JUVE, LIPID, MG, CMP, DBIL, PHOS #### [facility] [address] [place] [address] Dr. Sarmad Patino EGFR-AF [facility] LUCIAN >60 Normal >=60 [facility] Comment on above: Performed By: #### U JUVE, LIPID, MG, CMP, DBIL, PHOS #### [facility] [address] [place] [address] Dr. Sarmad Patino EGFR-NON AF [facility] LUCIAN >60 Normal >=60 [facility] Comment on above: Performed By: #### U JUVE, LIPID, MG, CMP, DBIL, PHOS #### [facility] [address] [place] [address] Dr. Sarmad Patino Globulin (S) [Mass/Vol] 3.4 g/dL Normal [facility] Comment on above: Performed By: #### U JUVE, LIPID, MG, CMP, DBIL, PHOS #### [facility] [address] [place] [address] Dr. Sarmad Patino Glucose [Mass/Vol] 97 mg/dL Normal 74-106 [facility] Comment on above: Performed By: #### U JUVE, LIPID, MG, CMP, DBIL, PHOS #### [facility] [address] [place] [address] Dr. Sarmad Patino Potassium [Moles/Vol] 4.2 mmol/L Normal 3.5-5.1 [facility] Comment on above: Performed By: #### U JUVE, LIPID, MG, CMP, DBIL, PHOS #### [facility] [address] [place] [address] Dr. Sarmad Patino Protein [Mass/Vol] 7.1 g/dL Normal 6.4-8.2 [facility] Comment on above: Performed By: #### U JUVE, LIPID, MG, CMP, DBIL, PHOS #### [facility] [address] [address] [address] Sarmad Patino Sodium [Moles/Vol] 143 mmol/L Normal 136-145 [facility] Comment on above: Performed By: #### U JUVE, LIPID, MG, CMP, DBIL, PHOS #### [facility] [address] [address] [address] Sarmad Patino Urea nitrogen [Mass/Vol] 26.0 mg/dL Critically high 7.0-18.0 [facility] Comment on above: Performed By: #### U JUVE, LIPID, MG, CMP, DBIL, PHOS #### [facility] [address] [place] [address] Dr. Sarmad Patino Urea nitrogen/Creatinine [Mass ratio] 33.8 mg/mg Normal [facility] Comment on above: Performed By: #### U JUVE, LIPID, MG, CMP, DBIL, PHOS #### [facility] [address] [place] [address] Dr. Sarmad Patino URIC ACID SERUMon 07-08-2022 Urate [Mass/Vol] 4.7 mg/dL Normal 2.6-6.0 [facility] Comment on above: Performed By: #### U JUVE, LIPID, MG, CMP, DBIL, PHOS #### [facility] [address] [place] [address] Dr. Sarmad Patino FK506 (TACROLIMUS) WHOLE BLO ODon 06-13-2022 Tacrolimus (FK506), Blood 3.0 ng/mL Normal 2.0-20.0 [facility] Comment on above: Result Comment: Trou gh (immediately following transplant) 15.0 . Trough (steady state, 2 weeks or more after transplant): 3.0 - 8.0 . Performed by LC-MS/MS technology. Performed By: #### D DAVIDSON, MG, PHOS, CMP, LIPID, URIC #### [facility] [address] [place] [address] Dr. Sarmad Patino BK VIRUS PCR QUANTon 023 BKV DNA QUANT PCR PLASMA Negative Normal Negative [facility] Comment on above: Result Comment: No B K DNA detected. . The linear range of the assay is 22 - 100,000,000 IU/mL. Performed By: #### B KVIRUS #### [facility] [address] [place] [address] Dr. Sarmad Patino Log10 BKV DNA Plasma Normal [facility] Comment on above: Performed By: #### B KVIRUS #### [facility] [address] [place] [address] Dr. Sarmad Patino BILIRUBIN CONJUGATED (DIRECT )on 06-10-2022 BILI, CONJUGATED 0.1 mg/dL Normal 0.0-0.2 [facility] Comment on above: Performed By: #### U JUVE, LIPID, MG, CMP, DBIL, PHOS #### [facility] [address] [place] [address] Dr. Sarmad Patino GLYCOHEMOGLOBIN A1Con 2022 ADA RECOMMENDATION SEE BELOW Normal [facility] Comment on above: Result Comment: ADA RECOMMENDED LIMIT 4.0 - 6.0 ADA THERAPEUTIC TARGET < 7.0 ACTION SUGGESTED > 7.0 Performed By: #### D DAVIDSON, MG, PHOS, CMP, LIPID, URIC #### [facility] [address] [place] [address] Dr. Sarmad Patino Glucose [Mass/Vol] 114 mg/dL Normal [facility] Comment on above: Performed By: #### D DAVIDSON, MG, PHOS, CMP, LIPID, URIC #### [facility] [address] [place] [address] Dr. Sarmad Patino HbA1c (Bld) [Mass fraction] 5.6 % Normal 4.5-6.2 [facility] Comment on above: Performed By: #### D DAVIDSON, MG, PHOS, CMP, LIPID, URIC #### [facility] [address] [place] [address] Dr. Sarmad Patino MAGNESIUMon 06-10-2022 Magnesium [Mass/Vol] 1.6 mg/dL Critically low 1.8-2.4 [facility] Comment on above: Performed By: #### U JUVE, LIPID, MG, CMP, DBIL, PHOS #### [facility] [address] [place] [address] Dr. Sarmad Patino PROF 14(COMP METB)on 023 Albumin [Mass/Vol] 3.7 g/dL Normal 3.4-5.0 [facility] Comment on above: Performed By: #### U JUVE, LIPID, MG, CMP, DBIL, PHOS #### [facility] [address] [place] [address] Dr. Sarmad Patino Albumin/Globulin [Mass ratio] 1.1 {ratio} Normal [facility] Comment on above: Performed By: #### U JUVE, LIPID, MG, CMP, DBIL, PHOS #### [facility] [address] [place] [address] Dr. Sarmad Patino ALP [Catalytic activity/Vol] 142 U/L Critically high 46-116 [facility] Comment on above: Performed By: #### U JUVE, LIPID, MG, CMP, DBIL, PHOS #### [facility] [address] [place] [address] Dr. Sarmad Patino ALT [Catalytic activity/Vol] 29 U/L Normal 14-59 [facility] Comment on above: Performed By: #### U JUVE, LIPID, MG, CMP, DBIL, PHOS #### [facility] [address] [place] [address] Dr. Sarmad Patino Anion gap [Moles/Vol] 11.1 mmol/L Normal [facility] Comment on above: Performed By: #### U JUVE, LIPID, MG, CMP, DBIL, PHOS #### [facility] [address] [place] [address] Dr. Sarmad Patino AST [Catalytic activity/Vol] 19 U/L Normal 15-37 [facility] Comment on above: Performed By: #### U JUVE, LIPID, MG, CMP, DBIL, PHOS #### [facility] [address] [place] [address] Dr. Sarmad Patino Bilirubin [Mass/Vol] 0.6 mg/dL Normal 0.2-1.0 [facility] Comment on above: Performed By: #### U JUVE, LIPID, MG, CMP, DBIL, PHOS #### [facility] Laboratory [address] [address] [address] Sarmad Patino Calcium [Mass/Vol] 9.8 mg/dL Normal 8.5-10.1 [facility] Comment on above: Performed By: #### U JUVE, LIPID, MG, CMP, DBIL, PHOS #### [facility] Laboratory [address] [address] [address] Sarmad Patino Chloride [Moles/Vol] 103 mmol/L Normal 98-107 [facility] Comment on above: Performed By: #### U JUVE, LIPID, MG, CMP, DBIL, PHOS #### [facility] Laboratory [address] [place] [address] Dr. Sarmad Patino CO2 [Moles/Vol] 30.7 mmol/L Normal 21.0-32.0 [facility] Comment on above: Performed By: #### U JUVE, LIPID, MG, CMP, DBIL, PHOS #### [facility] Laboratory [address] [place] [address] Dr. Sarmad Patino Creatinine [Mass/Vol] 0.79 mg/dL Normal 0.55-1.02 [facility] Comment on above: Performed By: #### U JUVE, LIPID, MG, CMP, DBIL, PHOS #### [facility] Laboratory [address] [place] [address] Dr. Sarmad Patino EGFR-AF [facility] LUCIAN >60 Normal >=60 [facility] Comment on above: Performed By: #### U JUVE, LIPID, MG, CMP, DBIL, PHOS #### [facility] Laboratory [address] [place] [address] Dr. Sarmad Patino EGFR-NON AF [facility] LUCIAN >60 Normal >=60 [facility] Comment on above: Performed By: #### U JUVE, LIPID, MG, CMP, DBIL, PHOS #### [facility] Laboratory [address] [place] [address] Dr. Sarmad Patino Globulin (S) [Mass/Vol] 3.4 g/dL Normal [facility] Comment on above: Performed By: #### U JUVE, LIPID, MG, CMP, DBIL, PHOS #### [facility] Laboratory [address] [address] [address] Sarmad Patino Glucose [Mass/Vol] 94 mg/dL Normal 74-106 [facility] Comment on above: Performed By: #### U JUVE, LIPID, MG, CMP, DBIL, PHOS #### [facility] Laboratory [address] [address] [address] Sarmad Patino Potassium [Moles/Vol] 3.8 mmol/L Normal 3.5-5.1 [facility] Comment on above: Performed By: #### U JUVE, LIPID, MG, CMP, DBIL, PHOS #### [facility] Laboratory [address] [address] [address] Sarmad Patino Protein [Mass/Vol] 7.1 g/dL Normal 6.4-8.2 [facility] Comment on above: Performed By: #### U JUVE, LIPID, MG, CMP, DBIL, PHOS #### [facility] Laboratory [address] [address] [address] Sarmad Patino Sodium [Moles/Vol] 141 mmol/L Normal 136-145 [facility] Comment on above: Performed By: #### U JUVE, LIPID, MG, CMP, DBIL, PHOS #### [facility] Laboratory [address] [address] [address] Sarmad Patino Urea nitrogen [Mass/Vol] 17.0 mg/dL Normal 7.0-18.0 [facility] Comment on above: Performed By: #### U JUVE, LIPID, MG, CMP, DBIL, PHOS #### [facility] Laboratory [address] [address] [address] Sarmad Patino Urea nitrogen/Creatinine [Mass ratio] 21.5 mg/mg Normal [facility] Comment on above: Performed By: #### U JUVE, LIPID, MG, CMP, DBIL, PHOS #### [facility] Laboratory [address] [place] [address] Dr. Sarmad Patino URIC ACID SERUMon 06-10-2022 Urate [Mass/Vol] 5.1 mg/dL Normal 2.6-6.0 [facility] Comment on above: Performed By: #### U JUVE, LIPID, MG, CMP, DBIL, PHOS #### [facility] Laboratory [address] [address] [address] Sarmad Patino BK VIRUS PCR QUANTon 023 BKV DNA QUANT PCR PLASMA Negative Normal Negative [facility] Comment on above: Result Comment: No B K DNA detected. . The linear range of the assay is 22 - 100,000,000 IU/mL. Performed By: #### U JUVE, LIPID, MG, CMP, DBIL, PHOS #### [facility] Laboratory [address] [address] [address] Sarmad Patino Log10 BKV DNA Plasma Normal [facility] Comment on above: Performed By: #### U JUVE, LIPID, MG, CMP, DBIL, PHOS #### [facility] Laboratory [address] [place] [address] Dr. Sarmad Patino FK506 (TACROLIMUS) WHOLE BLO ODon 05-13-2022 Tacrolimus (FK506), Blood 4.1 ng/mL Normal 2.0-20.0 [facility] Comment on above: Result Comment: Trou gh (immediately following transplant) 15.0 . Trough (steady state, 2 weeks or more after transplant): 3.0 - 8.0 . Performed by LC-MS/MS technology. Performed By: #### U JUVE, LIPID, MG, CMP, DBIL, PHOS #### [facility] Laboratory [address] [place] [address] Dr. Sarmad Patino BILIRUBIN CONJUGATED (DIRECT )on 05-10-2022 BILI, CONJUGATED 0.1 mg/dL Normal 0.0-0.2 [facility] Comment on above: Performed By: #### D DAVIDSON, MG, PHOS, CMP, LIPID, URIC #### [facility] Laboratory [address] [place] [address] Dr. Sarmad Patino GLYCOHEMOGLOBIN A1Con 2022 ADA RECOMMENDATION SEE BELOW Normal [facility] Comment on above: Result Comment: ADA RECOMMENDED LIMIT 4.0 - 6.0 ADA THERAPEUTIC TARGET < 7.0 ACTION SUGGESTED > 7.0 Performed By: #### D DAVIDSON, MG, PHOS, CMP, LIPID, URIC #### [facility] Laboratory [address] [address] [address] Sarmad Patino Glucose [Mass/Vol] 108 mg/dL Normal [facility] Comment on above: Performed By: #### D DAVIDSON, MG, PHOS, CMP, LIPID, URIC #### [facility] Laboratory [address] [address] [address] Sarmad Patino HbA1c (Bld) [Mass fraction] 5.4 % Normal 4.5-6.2 [facility] Comment on above: Performed By: #### D DAVIDSON, MG, PHOS, CMP, LIPID, URIC #### [facility] Laboratory [address] [place] [address] Dr. Sarmad Patino MAGNESIUMon 05-10-2022 Magnesium [Mass/Vol] 1.9 mg/dL Normal 1.8-2.4 [facility] Comment on above: Performed By: #### U JUVE, LIPID, MG, CMP, DBIL, PHOS #### [facility] Laboratory [address] [place] [address] Dr. Sarmad Patino PROF 14(COMP METB)on 023 Albumin [Mass/Vol] 3.9 g/dL Normal 3.4-5.0 [facility] Comment on above: Performed By: #### D DAVIDSON, MG, PHOS, CMP, LIPID, URIC #### [facility] Laboratory [address] [place] [address] Dr. Sarmad Patino Albumin/Globulin [Mass ratio] 1.2 {ratio} Normal [facility] Comment on above: Performed By: #### D DAVIDSON, MG, PHOS, CMP, LIPID, URIC #### [facility] Laboratory [address] [place] [address] Dr. Sarmad Patino ALP [Catalytic activity/Vol] 114 U/L Normal 46-116 [facility] Comment on above: Performed By: #### D DAVIDSON, MG, PHOS, CMP, LIPID, URIC #### [facility] Laboratory [address] [place] [address] Dr. Sarmad Patino ALT [Catalytic activity/Vol] 18 U/L Normal 14-59 [facility] Comment on above: Performed By: #### D DAVIDSON, MG, PHOS, CMP, LIPID, URIC #### [facility] Laboratory [address] [address] [address] Sarmad Patino Anion gap [Moles/Vol] 15.9 mmol/L Normal Th e [facility] Comment on above: Performed By: #### D DAVIDSON, MG, PHOS, CMP, LIPID, URIC #### [facility] Laboratory [address] [place] [address] Dr. Sarmad Patino AST [Catalytic activity/Vol] 17 U/L Normal 15-37 [facility] Comment on above: Performed By: #### D DAVIDSON, MG, PHOS, CMP, LIPID, URIC #### [facility] Laboratory [address] [place] [address] Dr. Sarmad Patino Bilirubin [Mass/Vol] 0.4 mg/dL Normal 0.2-1.0 [facility] Comment on above: Performed By: #### D DAVIDSON, MG, PHOS, CMP, LIPID, URIC #### [facility] Laboratory [address] [place] [address] Dr. Sarmad Patino Calcium [Mass/Vol] 9.8 mg/dL Normal 8.5-10.1 [facility] Comment on above: Performed By: #### D DAVIDSON, MG, PHOS, CMP, LIPID, URIC #### [facility] Laboratory [address] [address] [address] Sarmad Patino Chloride [Moles/Vol] 103 mmol/L Normal 98-107 [facility] Comment on above: Performed By: #### D DAVIDSON, MG, PHOS, CMP, LIPID, URIC #### [facility] Laboratory [address] [address] [address] Sarmad Patino CO2 [Moles/Vol] 29.2 mmol/L Normal 21.0-32.0 [facility] Comment on above: Performed By: #### D DAVIDSON, MG, PHOS, CMP, LIPID, URIC #### [facility] Laboratory [address] [place] [address] Dr. Sarmad Patino Creatinine [Mass/Vol] 0.74 mg/dL Normal 0.55-1.02 [facility] Comment on above: Performed By: #### D DAVIDSON, MG, PHOS, CMP, LIPID, URIC #### [facility] Laboratory [address] [address] [address] Sarmad Patino EGFR-AF [facility]CIAN >60 Normal >=60 [facility] Comment on above: Performed By: #### D DAVIDSON, MG, PHOS, CMP, LIPID, URIC #### [facility] Laboratory [address] [address] [address] Sarmad Patino EGFR-NON AF [facility] LUCIAN >60 Normal >=60 [facility] Comment on above: Performed By: #### D DAVIDSON, MG, PHOS, CMP, LIPID, URIC #### [facility] Laboratory [address] [place] [address] Dr. Sarmad Patino Globulin (S) [Mass/Vol] 3.2 g/dL Normal [facility] Comment on above: Performed By: #### D DAVIDSON, MG, PHOS, CMP, LIPID, URIC #### [facility] Laboratory [address] [address] [address] Sarmad Patino Glucose [Mass/Vol] 94 mg/dL Normal 74-106 [facility] Comment on above: Performed By: #### D DAVIDSON, MG, PHOS, CMP, LIPID, URIC #### [facility] Laboratory [address] [place] [address] Dr. Sarmad Patino Potassium [Moles/Vol] 4.1 mmol/L Normal 3.5-5.1 [facility] Comment on above: Performed By: #### D DAVIDSON, MG, PHOS, CMP, LIPID, URIC #### [facility] Laboratory [address] [address] [address] Sarmad Patino Protein [Mass/Vol] 7.1 g/dL Normal 6.4-8.2 [facility] Comment on above: Performed By: #### D DAVIDSON, MG, PHOS, CMP, LIPID, URIC #### [facility] Laboratory [address] [address] [address] Sarmad Patino Sodium [Moles/Vol] 144 mmol/L Normal 136-145 [facility] Comment on above: Performed By: #### D DAVIDSON, MG, PHOS, CMP, LIPID, URIC #### [facility] Laboratory [address] [address] [address] Sarmad Patino Urea nitrogen [Mass/Vol] 18.0 mg/dL Normal 7.0-18.0 [facility] Comment on above: Performed By: #### D DAVIDSON, MG, PHOS, CMP, LIPID, URIC #### [facility] Laboratory [address] [address] [address] Sarmad Patino Urea nitrogen/Creatinine [Mass ratio] 24.3 mg/mg Normal [facility] Comment on above: Performed By: #### D DAVIDSON, MG, PHOS, CMP, LIPID, URIC #### [facility] Laboratory [address] [place] [address] Dr. Sarmad Patino URIC ACID SERUMon 05-10-2022 Urate [Mass/Vol] 5.1 mg/dL Normal 2.6-6.0 [facility] Comment on above: Performed By: #### U JUVE, LIPID, MG, CMP, DBIL, PHOS #### [facility] Laboratory [address] [address] [address] Sarmad Patino MYCOPHENOLIC ACIDon 04-17-19 Mycophenolic Acid 1.2 ug/mL Normal 1.0-3.5 [facility] Comment on above: Performed By: #### D DAVIDSON, MG, PHOS, CMP, LIPID, URIC #### [facility] Laboratory [address] [address] [address] Sarmad Patino Mycophenolic Acid Glucuronide 37 ug/mL Normal 15-125 [facility] Comment on above: Result Comment: [facility] 's Reference Range: 35-100 mcg/mL. Performed By: #### D DAVIDSON, MG, PHOS, CMP, LIPID, URIC #### [facility] Laboratory [address] [place] [address] Dr. Sarmad Patino FK506 (TACROLIMUS) WHOLE BLO ODon 04-10-2022 Tacrolimus (FK506), Blood 4.2 ng/mL Normal 2.0-20.0 [facility] Comment on above: Result Comment: Trou gh (immediately following transplant) 15.0 . Trough (steady state, 2 weeks or more after transplant): 3.0 - 8.0 . Performed by LC-MS/MS technology. Performed By: #### D DAVIDSON, MG, PHOS, CMP, LIPID, URIC #### [facility] Laboratory [address] [place] [address] Dr. Sarmad Patino BILIRUBIN CONJUGATED (DIRECT )on 04-08-2022 BILI, CONJUGATED 0.1 mg/dL Normal 0.0-0.2 [facility] Comment on above: Performed By: #### U JUVE, LIPID, MG, CMP, DBIL, PHOS #### [facility] Laboratory [address] [place] [address] Dr. Sarmad Patino CBC AUTO DIFFon 04-08-2022 BASO # 0.0 103/ul Normal 0.0-0.1 [facility] Comment on above: Performed By: #### D DAVIDSON, MG, PHOS, CMP, LIPID, URIC #### [facility] Laboratory [address] [place] [address] Dr. Sarmad Patino Basophils/100 WBC (Bld) 0.3 % Normal 0.2-2.0 [facility] Comment on above: Performed By: #### D DAVIDSON, MG, PHOS, CMP, LIPID, URIC #### [facility] Laboratory [address] [place] [address] Dr. Sarmad Patino EO # 0.1 103/ul Normal 0.0-0.7 [facility] Comment on above: Performed By: #### D DAVIDSON, MG, PHOS, CMP, LIPID, URIC #### [facility] Laboratory [address] [place] [address] Dr. Sarmad Patino Eosinophils/100 WBC (Bld) 1.4 % Normal 0.9-7.0 [facility] Comment on above: Performed By: #### D DAVIDSON, MG, PHOS, CMP, LIPID, URIC #### [facility] Laboratory [address] [place] [address] Dr. Sarmad Patino Erythrocyte distribution width (RBC) [Ratio] 15.8 % Critically high 11.0-15.0 [facility] Comment on above: Performed By: #### D DAVIDSON, MG, PHOS, CMP, LIPID, URIC #### [facility] Laboratory [address] [address] [address] Sarmad Patino Hematocrit (Bld) [Volume fraction] 43.0 % Normal 36.0-48.0 [facility] Comment on above: Performed By: #### D DAVIDSON, MG, PHOS, CMP, LIPID, URIC #### [facility] Laboratory [address] [address] [address] Sarmad Patino Hemoglobin (Bld) [Mass/Vol] 15.0 g/dL Normal 12.0-16.0 [facility] Comment on above: Performed By: #### D DAVIDSON, MG, PHOS, CMP, LIPID, URIC #### [facility] Laboratory [address] [place] [address] Dr. Sarmad Patino IG # 0.01 10e3/ul Normal 0.00-0.03 [facility] Comment on above: Performed By: #### D DAVIDSON, MG, PHOS, CMP, LIPID, URIC #### [facility] Laboratory [address] [place] [address] Dr. Sarmad Patino IG % 0.1 % Normal 0.0-0.5 [facility] Comment on above: Performed By: #### D DAVIDSON, MG, PHOS, CMP, LIPID, URIC #### [facility] Laboratory [address] [place] [address] Dr. Sarmad Patino LYMPH # 1.3 103/ul Normal 1.2-3.8 [facility] Comment on above: Performed By: #### D DAVIDSON, MG, PHOS, CMP, LIPID, URIC #### [facility] Laboratory [address] [place] [address] Dr. Sarmad Patino Lymphocytes/100 WBC (Bld) 18.3 % Critically low 20.5-60.0 [facility] Comment on above: Performed By: #### D DAVIDSON, MG, PHOS, CMP, LIPID, URIC #### [facility] Laboratory [address] [place] [address] Dr. Sarmad Patino MANUAL DIFF REQ NO Normal [facility] Comment on above: Performed By: #### D DAVIDSON, MG, PHOS, CMP, LIPID, URIC #### [facility] Laboratory [address] [address] [address] Sarmad Patino MCH (RBC) [Entitic mass] 29.7 pg Normal 26.7-34.0 [facility] Comment on above: Performed By: #### D DAVIDSON, MG, PHOS, CMP, LIPID, URIC #### [facility] Laboratory [address] [place] [address] Dr. Sarmad Patino MCHC (RBC) [Mass/Vol] 34.9 g/dL Normal 29.9-35.2 [facility] Comment on above: Performed By: #### D DAVIDSON, MG, PHOS, CMP, LIPID, URIC #### [facility] Laboratory [address] [place] [address] Dr. Sarmad Patino MCV (RBC) [Entitic vol] 85.1 fL Normal 81.0-99.0 [facility] Comment on above: Performed By: #### D DAVIDSON, MG, PHOS, CMP, LIPID, URIC #### [facility] Laboratory [address] [place] [address] Dr. Sarmad Patino MONO # 0.7 103/ul Normal 0.3-0.8 The [facility] Comment on above: Performed By: #### D DAVIDSON, MG, PHOS, CMP, LIPID, URIC #### [facility] Laboratory [address] [place] [address] Dr. Sarmad Patino Monocytes/100 WBC (Bld) 9.8 % Normal 1.7-12.0 [facility] Comment on above: Performed By: #### D DAVIDSON, MG, PHOS, CMP, LIPID, URIC #### [facility] Laboratory [address] [place] [address] Dr. Sarmad Patino NEUT # 5.1 103/ul Normal 1.4-6.5 [facility] Comment on above: Performed By: #### D DAVIDSON, MG, PHOS, CMP, LIPID, URIC #### [facility] Laboratory [address] [place] [address] Dr. Sarmad Patino Neutrophils/100 WBC (Bld) 70.1 % Normal 43.0-75.0 [facility] Comment on above: Performed By: #### D DAVIDSON, MG, PHOS, CMP, LIPID, URIC #### [facility] Laboratory [address] [address] [address] Sarmad Patino Platelet mean volume (Bld) [Entitic vol] 10.4 fL Normal 9.5-13.5 [facility] Comment on above: Performed By: #### D DAVIDSON, MG, PHOS, CMP, LIPID, URIC #### [facility] Laboratory [address] [place] [address] Dr. Sarmad Patino PLT 229 103/ul Normal 150-450 [facility] Comment on above: Performed By: #### D DAVIDSON, MG, PHOS, CMP, LIPID, URIC #### [facility] Laboratory [address] [place] [address] Dr. Sarmad Patino RBC 5.05 106/ul Normal 4.20-5.40 [facility] Comment on above: Performed By: #### D DAVIDSON, MG, PHOS, CMP, LIPID, URIC #### [facility] Laboratory [address] [place] [address] Dr. Sarmad Patino WBC 7.2 103/ul Normal 4.0-11.0 [facility] Comment on above: Performed By: #### D DAVIDSON, MG, PHOS, CMP, LIPID, URIC #### [facility] [address] [place] [address] Dr. Sarmad Patino LIPID PROFILEon 04-08-2022 CHOL-HDL RATIO NORM SEE BELOW Normal [facility] Comment on above: Result Comment: 3.3 - 4.4 LOW RISK 4.4 - 7.1 AVERAGE RISK 7.1 - 11.0 MODERATE RISK >11.0 HIGH RISK Performed By: #### U JUVE, LIPID, MG, CMP, DBIL, PHOS #### [facility] [address] [place] [address] Dr. Sarmad Patino Cholesterol [Mass/Vol] 134 mg/dL Normal <=200 The [facility] Comment on above: Performed By: #### U JUVE, LIPID, MG, CMP, DBIL, PHOS #### [facility] Laboratory [address] [address] [address] Sarmad Patino Cholesterol in HDL [Mass/Vol] 55 mg/dL Normal 40-60 [facility] Comment on above: Performed By: #### U JUVE, LIPID, MG, CMP, DBIL, PHOS #### [facility] [address] [address] [address] Sramad Patino Cholesterol in LDL [Mass/Vol] 56.6 mg/dL Normal [facility] Comment on above: Performed By: #### U JUVE, LIPID, MG, CMP, DBIL, PHOS #### [facility] [address] [address] [address] Sarmad Patino Cholesterol.total/Cho lesterol in HDL [Mass ratio] 2.4 {ratio} Normal [facility] Comment on above: Performed By: #### U JUVE, LIPID, MG, CMP, DBIL, PHOS #### [facility] [address] [address] [address] Sarmad Patino HDL NORMAL > or = 60 mg/dl - LO W CARDIOVASCULAR RISK <40 mg/dl - HIGH CARDIOVASCULAR RISK Normal [facility] Comment on above: Performed By: #### U JUVE, LIPID, MG, CMP, DBIL, PHOS #### [facility] [address] [address] [address] Sarmad Patino LDL CALC NORMAL SEE BELOW Normal [facility] Comment on above: Result Comment: <100 mg/dl OPTIMAL 100 - 129 mg/dl NEAR OR ABOVE OPTIMAL 130 - 159 mg/dl BORDERLINE HIGH 160 - 189 mg/dl HIGH >190 mg/dl VERY HIGH Performed By: #### U JUVE, LIPID, MG, CMP, DBIL, PHOS #### [facility] [address] [address] [address] Sarmad Patino Triglyceride [Mass/Vol] 112 mg/dL Normal <=150 [facility] Comment on above: Performed By: #### U JUVE, LIPID, MG, CMP, DBIL, PHOS #### [facility] [address] [address] [address] Sarmad Patino VLDL CALC 22.4 mg/dL Normal [facility] Comment on above: Performed By: #### U JUVE, LIPID, MG, CMP, DBIL, PHOS #### [facility] [address] [place] [address] Dr. Sarmad Patino MAGNESIUMon 04-08-2022 Magnesium [Mass/Vol] 1.8 mg/dL Normal 1.8-2.4 [facility] Comment on above: Performed By: #### U JUVE, LIPID, MG, CMP, DBIL, PHOS #### [facility] [address] [place] [address] Dr. Sarmad Patino PHOSPHORUSon 04-08-2022 Phosphate [Mass/Vol] 3.9 mg/dL Normal 2.6-4.7 [facility] Comment on above: Performed By: #### U JUVE, LIPID, MG, CMP, DBIL, PHOS #### [facility] [address] [place] [address] Dr. Sarmad Patino PROF 14(COMP METB)on 023 Albumin [Mass/Vol] 4.0 g/dL Normal 3.4-5.0 [facility] Comment on above: Performed By: #### U JUVE, LIPID, MG, CMP, DBIL, PHOS #### [facility] [address] [place] [address] Dr. Sarmad Patino Albumin/Globulin [Mass ratio] 1.3 {ratio} Normal [facility] Comment on above: Performed By: #### U JUVE, LIPID, MG, CMP, DBIL, PHOS #### [facility] [address] [place] [address] Dr. Sarmad Patino ALP [Catalytic activity/Vol] 108 U/L Normal 46-116 [facility] Comment on above: Performed By: #### U JUVE, LIPID, MG, CMP, DBIL, PHOS #### [facility] [address] [place] [address] Dr. Sarmad Patino ALT [Catalytic activity/Vol] 15 U/L Normal 14-59 [facility] Comment on above: Performed By: #### U JUVE, LIPID, MG, CMP, DBIL, PHOS #### [facility] [address] [place] [address] Dr. Sarmad Patino Anion gap [Moles/Vol] 14.3 mmol/L Normal [facility] Comment on above: Performed By: #### U JUVE, LIPID, MG, CMP, DBIL, PHOS #### [facility] [address] [place] [address] Dr. Sarmad Patino AST [Catalytic activity/Vol] 15 U/L Normal 15-37 [facility] Comment on above: Performed By: #### U JUVE, LIPID, MG, CMP, DBIL, PHOS #### [facility] [address] [place] [address] Dr. Sarmad Patino Bilirubin [Mass/Vol] 0.5 mg/dL Normal 0.2-1.0 [facility] Comment on above: Performed By: #### U JUVE, LIPID, MG, CMP, DBIL, PHOS #### [facility] [address] [place] [address] Dr. Sarmad Patino Calcium [Mass/Vol] 9.7 mg/dL Normal 8.5-10.1 [facility] Comment on above: Performed By: #### U JUVE, LIPID, MG, CMP, DBIL, PHOS #### [facility] [address] [place] [address] Dr. Sarmad Patino Chloride [Moles/Vol] 105 mmol/L Normal 98-107 [facility] Comment on above: Performed By: #### U JUVE, LIPID, MG, CMP, DBIL, PHOS #### [facility] [address] [place] [address] Dr. Sarmad Patino CO2 [Moles/Vol] 26.6 mmol/L Normal 21.0-32.0 [facility] Comment on above: Performed By: #### U JUVE, LIPID, MG, CMP, DBIL, PHOS #### [facility] [address] [place] [address] Dr. Sarmad Patino Creatinine [Mass/Vol] 0.80 mg/dL Normal 0.55-1.02 [facility] Comment on above: Performed By: #### U JUVE, LIPID, MG, CMP, DBIL, PHOS #### [facility] [address] [address] [address] Sarmad Patino EGFR-AF [facility] LUCIAN >60 Normal >=60 [facility] Comment on above: Performed By: #### U JUVE, LIPID, MG, CMP, DBIL, PHOS #### [facility] [address] [place] [address] Dr. Sarmad Patino EGFR-NON AF [facility] LUCIAN >60 Normal >=60 [facility] Comment on above: Performed By: #### U JUVE, LIPID, MG, CMP, DBIL, PHOS #### [facility] [address] [place] [address] Dr. Sarmad Patino Globulin (S) [Mass/Vol] 3.0 g/dL Normal [facility] Comment on above: Performed By: #### U JUVE, LIPID, MG, CMP, DBIL, PHOS #### [facility] [address] [place] [address] Dr. Sarmad Patino Glucose [Mass/Vol] 99 mg/dL Normal 74-106 [facility] Comment on above: Performed By: #### U JUVE, LIPID, MG, CMP, DBIL, PHOS #### [facility] [address] [place] [address] Dr. Sarmad Patino Potassium [Moles/Vol] 3.9 mmol/L Normal 3.5-5.1 [facility] Comment on above: Performed By: #### U JUVE, LIPID, MG, CMP, DBIL, PHOS #### [facility] [address] [address] [address] Sarmad Patino Protein [Mass/Vol] 7.0 g/dL Normal 6.4-8.2 [facility] Comment on above: Performed By: #### U JUVE, LIPID, MG, CMP, DBIL, PHOS #### [facility] [address] [place] [address] Dr. Sarmad Patino Sodium [Moles/Vol] 142 mmol/L Normal 136-145 [facility] Comment on above: Performed By: #### U JUVE, LIPID, MG, CMP, DBIL, PHOS #### [facility] [address] [address] [address] Sarmad Patino Urea nitrogen [Mass/Vol] 14.0 mg/dL Normal 7.0-18.0 [facility] Comment on above: Performed By: #### U JUVE, LIPID, MG, CMP, DBIL, PHOS #### [facility] [address] [address] [address] Sarmad Patino Urea nitrogen/Creatinine [Mass ratio] 17.5 mg/mg Normal [facility] Comment on above: Performed By: #### U JUVE, LIPID, MG, CMP, DBIL, PHOS #### [facility] [address] [address] [address] Sarmad Patino URIC ACID SERUMon 04-08-2022 Urate [Mass/Vol] 5.2 mg/dL Normal 2.6-6.0 [facility] Comment on above: Performed By: #### U JUVE, LIPID, MG, CMP, DBIL, PHOS #### [facility] [address] [place] [address] Dr. Sarmad Patino BK VIRUS PCR QUANTon 022 BKV DNA QUANT PCR PLASMA Negative Normal Negative [facility] Comment on above: Result Comment: No B K DNA detected. . The linear range of the assay is 22 - 100,000,000 IU/mL. Performed By: #### D DAVIDSON, MG, PHOS, CMP, LIPID, URIC #### [facility] [address] [place] [address] Dr. Sarmad Patino Log10 BKV DNA Plasma Normal [facility] Comment on above: Performed By: #### D DAVIDSON, MG, PHOS, CMP, LIPID, URIC #### [facility] [address] [place] [address] Dr. Sarmad Patino FK506 (TACROLIMUS) WHOLE BLO ODon 03-13-2022 Tacrolimus (FK506), Blood 5.0 ng/mL Normal 2.0-20.0 [facility] Comment on above: Result Comment: Trou gh (immediately following transplant) 15.0 . Trough (steady state, 2 weeks or more after transplant): 3.0 - 8.0 . Performed by LC-MS/MS technology. Performed By: #### D DAVIDSON, MG, PHOS, CMP, LIPID, URIC #### [facility] [address] [place] [address] Dr. Sarmad Patino GLYCOHEMOGLOBIN A1Con 2021 ADA RECOMMENDATION SEE BELOW Normal [facility] Comment on above: Result Comment: ADA RECOMMENDED LIMIT 4.0 - 6.0 ADA THERAPEUTIC TARGET < 7.0 ACTION SUGGESTED > 7.0 Performed By: #### D DAVIDSON, MG, PHOS, CMP, LIPID, URIC #### [facility] [address] [address] [address] Sarmad Patino Glucose [Mass/Vol] 111 mg/dL Normal [facility] Comment on above: Performed By: #### D DAVIDSON, MG, PHOS, CMP, LIPID, URIC #### [facility] [address] [place] [address] Dr. Sarmad Patino HbA1c (Bld) [Mass fraction] 5.5 % Normal 4.5-6.2 [facility] Comment on above: Performed By: #### D DAVIDSON, MG, PHOS, CMP, LIPID, URIC #### [facility] [address] [place] [address] Dr. Sarmad Patino LIVER PROFILEon 03-11-2022 Albumin [Mass/Vol] 3.7 g/dL Normal 3.4-5.0 [facility] Comment on above: Performed By: #### D DAVIDSON, MG, PHOS, CMP, LIPID, URIC #### [facility] [address] [place] [address] Dr. Sarmad Patino Albumin/Globulin [Mass ratio] 1.1 {ratio} Normal [facility] Comment on above: Performed By: #### D DAVIDSON, MG, PHOS, CMP, LIPID, URIC #### [facility] [address] [place] [address] Dr. Sarmad Patino ALP [Catalytic activity/Vol] 124 U/L Critically high 46-116 [facility] Comment on above: Performed By: #### D DAVIDSON, MG, PHOS, CMP, LIPID, URIC #### [facility] [address] [place] [address] Dr. Sarmad Patino ALT [Catalytic activity/Vol] 17 U/L Normal 14-59 [facility] Comment on above: Performed By: #### D DAVIDSON, MG, PHOS, CMP, LIPID, URIC #### [facility] [address] [place] [address] Dr. Sarmad Patino AST [Catalytic activity/Vol] 16 U/L Normal 15-37 [facility] Comment on above: Performed By: #### D DAVIDSON, MG, PHOS, CMP, LIPID, URIC #### [facility] [address] [place] [address] Dr. Sarmad Patino BILI, CONJUGATED 0.2 mg/dL Normal 0.0-0.2 [facility] Comment on above: Performed By: #### D DAVIDSON, MG, PHOS, CMP, LIPID, URIC #### [facility] [address] [place] [address] Dr. Sarmad Patino Bilirubin [Mass/Vol] 0.6 mg/dL Normal 0.2-1.0 [facility] Comment on above: Performed By: #### D DAVIDSON, MG, PHOS, CMP, LIPID, URIC #### [facility] [address] [place] [address] Dr. Sarmad Patino Globulin (S) [Mass/Vol] 3.4 g/dL Normal [facility] Comment on above: Performed By: #### D DAVIDSON, MG, PHOS, CMP, LIPID, URIC #### [facility] [address] [place] [address] Dr. Sarmad Patino Protein [Mass/Vol] 7.1 g/dL Normal 6.4-8.2 [facility] Comment on above: Performed By: #### D DAVIDSON, MG, PHOS, CMP, LIPID, URIC #### [facility] [address] [place] [address] Dr. Sarmad Patino MAGNESIUMon 03-11-2022 Magnesium [Mass/Vol] 1.6 mg/dL Critically low 1.8-2.4 [facility] Comment on above: Performed By: #### D DAVIDSON, MG, PHOS, CMP, LIPID, URIC #### [facility] [address] [address] [address] Sarmad Patino PHOSPHORUSon 03-11-2022 Phosphate [Mass/Vol] 3.5 mg/dL Normal 2.6-4.7 [facility] Comment on above: Performed By: #### D DAVIDSON, MG, PHOS, CMP, LIPID, URIC #### [facility] [address] [address] [address] Sarmad Patino URIC ACID SERUMon 03-11-2022 Urate [Mass/Vol] 5.3 mg/dL Normal 2.6-6.0 [facility] Comment on above: Performed By: #### D DAVIDSON, MG, PHOS, CMP, LIPID, URIC #### [facility] [address] [address] [address] Sarmad Patino MYCOPHENOLIC ACIDon 02-19-20 22 Mycophenolic Acid 1.5 ug/mL Normal 1.0-3.5 [facility] Comment on above: Performed By: #### D DAVIDSON, MG, PHOS, CMP, LIPID, URIC #### [facility] [address] [address] [address] Sarmad Patino Mycophenolic Acid Glucuronide 32 ug/mL Normal 15-125 [facility] Comment on above: Result Comment: [facility] 's Reference Range: 35-100 mcg/mL. Performed By: #### D DAVIDSON, MG, PHOS, CMP, LIPID, URIC #### [facility] [address] [place] [address] Dr. Sarmad Patino BK VIRUS PCR QUANTon 022 BKV DNA QUANT PCR PLASMA Negative Normal Negative [facility] Comment on above: Result Comment: No B K DNA detected. . The linear range of the assay is 22 - 100,000,000 IU/mL. Performed By: #### D DAVIDSON, MG, PHOS, CMP, LIPID, URIC #### [facility] [address] [place] [address] Dr. Sarmad Patino Log10 BKV DNA Plasma Normal [facility] Comment on above: Performed By: #### D DAVIDSON, MG, PHOS, CMP, LIPID, URIC #### [facility] [address] [place] [address] Dr. Sarmad Patino FK506 (TACROLIMUS) WHOLE BLO ODon 02-11-2022 Tacrolimus (FK506), Blood 4.4 ng/mL Normal 2.0-20.0 [facility] Comment on above: Result Comment: Trou gh (immediately following transplant) 15.0 . Trough (steady state, 2 weeks or more after transplant): 3.0 - 8.0 . Performed by LC-MS/MS technology. Performed By: #### U JUVE, LIPID, MG, CMP, DBIL, PHOS #### [facility] [address] [place] [address] Dr. Sarmad Patino BILIRUBIN CONJUGATED (DIRECT )on 02-08-2022 BILI, CONJUGATED 0.1 mg/dL Normal 0.0-0.2 [facility] Comment on above: Performed By: #### D DAVIDSON, MG, PHOS, CMP, LIPID, URIC #### [facility] [address] [place] [address] Dr. Sarmad Patino CBC AUTO DIFFon 02-08-2022 BASO # 0.0 103/ul Normal 0.0-0.1 [facility] Comment on above: Performed By: #### D DAVIDSON, MG, PHOS, CMP, LIPID, URIC #### [facility] [address] [place] [address] Dr. Sarmad Patino Basophils/100 WBC (Bld) 0.3 % Normal 0.2-2.0 [facility] Comment on above: Performed By: #### D DAVIDSON, MG, PHOS, CMP, LIPID, URIC #### [facility] [address] [place] [address] Dr. Sarmad Patino EO # 0.1 103/ul Normal 0.0-0.7 [facility] Comment on above: Performed By: #### D DAVIDSON, MG, PHOS, CMP, LIPID, URIC #### [facility] [address] [place] [address] Dr. Sarmad Patino Eosinophils/100 WBC (Bld) 1.0 % Normal 0.9-7.0 [facility] Comment on above: Performed By: #### D DAVIDSON, MG, PHOS, CMP, LIPID, URIC #### [facility] [address] [address] [address] Sarmad Patino Erythrocyte distribution width (RBC) [Ratio] 15.9 % Critically high 11.0-15.0 [facility] Comment on above: Performed By: #### D DAVIDSON, MG, PHOS, CMP, LIPID, URIC #### [facility] [address] [address] [address] Sarmad Patino Hematocrit (Bld) [Volume fraction] 42.2 % Normal 36.0-48.0 [facility] Comment on above: Performed By: #### D DAVIDSON, MG, PHOS, CMP, LIPID, URIC #### [facility] [address] [place] [address] Dr. Sarmad Patino Hemoglobin (Bld) [Mass/Vol] 13.8 g/dL Normal 12.0-16.0 [facility] Comment on above: Performed By: #### D DAVIDSON, MG, PHOS, CMP, LIPID, URIC #### [facility] [address] [place] [address] Dr. Sarmad Patino IG # 0.10 10e3/ul Critically high 0.00-0.03 [facility] Comment on above: Performed By: #### D DAVIDSON, MG, PHOS, CMP, LIPID, URIC #### [facility] [address] [place] [address] Dr. Sarmad Patino IG % 1.1 % Critically high 0.0-0.5 [facility] Comment on above: Performed By: #### D DAVIDSON, MG, PHOS, CMP, LIPID, URIC #### [facility] [address] [place] [address] Dr. Sarmad Patino LYMPH # 1.2 103/ul Normal 1.2-3.8 [facility] Comment on above: Performed By: #### D DAVIDSON, MG, PHOS, CMP, LIPID, URIC #### [facility] [address] [place] [address] Dr. Sarmad Patino Lymphocytes/100 WBC (Bld) 12.6 % Critically low 20.5-60.0 [facility] Comment on above: Performed By: #### D DAVIDSON, MG, PHOS, CMP, LIPID, URIC #### [facility] [address] [place] [address] Dr. Sarmad Patino MANUAL DIFF REQ NO Normal [facility] Comment on above: Performed By: #### D DAVIDSON, MG, PHOS, CMP, LIPID, URIC #### [facility] [address] [place] [address] Dr. Sarmad Patino MCH (RBC) [Entitic mass] 28.3 pg Normal 26.7-34.0 [facility] Comment on above: Performed By: #### D DAVIDSON, MG, PHOS, CMP, LIPID, URIC #### [facility] [address] [place] [address] Dr. Sarmad Patino MCHC (RBC) [Mass/Vol] 32.7 g/dL Normal 29.9-35.2 [facility] Comment on above: Performed By: #### D DAVIDSON, MG, PHOS, CMP, LIPID, URIC #### [facility] [address] [place] [address] Dr. Sarmad Patino MCV (RBC) [Entitic vol] 86.7 fL Normal 81.0-99.0 [facility] Comment on above: Performed By: #### D DAVIDSON, MG, PHOS, CMP, LIPID, URIC #### [facility] [address] [place] [address] Dr. Sarmad Patino MONO # 1.0 103/ul Critically high 0.3-0.8 [facility] Comment on above: Performed By: #### D DAVIDSON, MG, PHOS, CMP, LIPID, URIC #### [facility] [address] [place] [address] Dr. Sarmad Patino Monocytes/100 WBC (Bld) 10.7 % Normal 1.7-12.0 [facility] Comment on above: Performed By: #### D DAVIDSON, MG, PHOS, CMP, LIPID, URIC #### [facility] [address] [place] [address] Dr. Sarmad Patino NEUT # 6.9 103/ul Critically high 1.4-6.5 [facility] Comment on above: Performed By: #### D DAVIDSON, MG, PHOS, CMP, LIPID, URIC #### [facility] [address] [address] [address] Sarmad Patino Neutrophils/100 WBC (Bld) 74.3 % Normal 43.0-75.0 [facility] Comment on above: Performed By: #### D DAVIDSON, MG, PHOS, CMP, LIPID, URIC #### [facility] [address] [address] [address] Sarmad Patino Platelet mean volume (Bld) [Entitic vol] 11.1 fL Normal 9.5-13.5 [facility] Comment on above: Performed By: #### D DAVIDSON, MG, PHOS, CMP, LIPID, URIC #### [facility] [address] [address] [address] Sarmad Patino PLT 307 103/ul Normal 150-450 [facility] Comment on above: Performed By: #### D DAVIDSON, MG, PHOS, CMP, LIPID, URIC #### [facility] [address] [address] [address] Sarmad Patino RBC 4.87 106/ul Normal 4.20-5.40 [facility] Comment on above: Performed By: #### D DAVIDSON, MG, PHOS, CMP, LIPID, URIC #### [facility] [address] [address] [address] Sarmad Patino WBC 9.3 103/ul Normal 4.0-11.0 [facility] Comment on above: Performed By: #### D DAVIDSON, MG, PHOS, CMP, LIPID, URIC #### [facility] [address] [address] [address] Sarmad Patino GLYCOHEMOGLOBIN A1Con 2021 ADA RECOMMENDATION SEE BELOW Normal [facility] Comment on above: Result Comment: ADA RECOMMENDED LIMIT 4.0 - 6.0 ADA THERAPEUTIC TARGET < 7.0 ACTION SUGGESTED > 7.0 Performed By: #### D DAVIDSON, MG, PHOS, CMP, LIPID, URIC #### [facility] [address] [address] [address] Sarmad Patino Glucose [Mass/Vol] 134 mg/dL Normal [facility] Comment on above: Performed By: #### D DAVIDSON, MG, PHOS, CMP, LIPID, URIC #### [facility] [address] [address] [address] Sarmad Patino HbA1c (Bld) [Mass fraction] 6.3 % Critically high 4.5-6.2 [facility] Comment on above: Performed By: #### D DAVIDSON, MG, PHOS, CMP, LIPID, URIC #### [facility] [address] [address] [address] Sarmad Patino LIPID PROFILEon 02-08-2022 CHOL-HDL RATIO NORM SEE BELOW Normal [facility] Comment on above: Result Comment: 3.3 - 4.4 LOW RISK 4.4 - 7.1 AVERAGE RISK 7.1 - 11.0 MODERATE RISK >11.0 HIGH RISK Performed By: #### D DAVIDSON, MG, PHOS, CMP, LIPID, URIC #### [facility] [address] [place] [address] Dr. Sarmad Patino Cholesterol [Mass/Vol] 180 mg/dL Normal <=200 [facility] Comment on above: Performed By: #### D DAVIDSON, MG, PHOS, CMP, LIPID, URIC #### [facility] [address] [address] [address] Sarmad aPtino Cholesterol in HDL [Mass/Vol] 58 mg/dL Normal 40-60 [facility] Comment on above: Performed By: #### D DAVIDSON, MG, PHOS, CMP, LIPID, URIC #### [facility] [address] [address] [address] Sarmad Patino Cholesterol in LDL [Mass/Vol] 86.6 mg/dL Normal [facility] Comment on above: Performed By: #### D DAVIDSON, MG, PHOS, CMP, LIPID, URIC #### [facility] [address] [address] [address] Sarmad Patino Cholesterol.total/Cho lesterol in HDL [Mass ratio] 3.1 {ratio} Normal [facility] Comment on above: Performed By: #### D DAVIDSON, MG, PHOS, CMP, LIPID, URIC #### [facility] [address] [address] [address] Sarmad Patino HDL NORMAL > or = 60 mg/dl - LO W CARDIOVASCULAR RISK <40 mg/dl - HIGH CARDIOVASCULAR RISK Normal [facility] Comment on above: Performed By: #### D DAVIDSON, MG, PHOS, CMP, LIPID, URIC #### [facility] [address] [address] [address] Sarmad Patino LDL CALC NORMAL SEE BELOW Normal [facility] Comment on above: Result Comment: <100 mg/dl OPTIMAL 100 - 129 mg/dl NEAR OR ABOVE OPTIMAL 130 - 159 mg/dl BORDERLINE HIGH 160 - 189 mg/dl HIGH >190 mg/dl VERY HIGH Performed By: #### D DAVIDSON, MG, PHOS, CMP, LIPID, URIC #### [facility] [address] [address] [address] Sarmad Patino Triglyceride [Mass/Vol] 177 mg/dL Critically high <=150 [facility] Comment on above: Performed By: #### D DAVIDSON, MG, PHOS, CMP, LIPID, URIC #### [facility] [address] [address] [address] Sarmad Patino VLDL CALC 35.4 mg/dL Normal [facility] Comment on above: Performed By: #### D DAVIDSON, MG, PHOS, CMP, LIPID, URIC #### [facility] [address] [address] [address] Sarmad Patino MAGNESIUMon 02-08-2022 Magnesium [Mass/Vol] 1.8 mg/dL Normal 1.8-2.4 The [facility] Comment on above: Performed By: #### D DAVIDSON, MG, PHOS, CMP, LIPID, URIC #### [facility] [address] [place] [address] Dr. Sarmad Patino PHOSPHORUSon 02-08-2022 Phosphate [Mass/Vol] 3.3 mg/dL Normal 2.6-4.7 The [facility] Comment on above: Performed By: #### D DAVIDSON, MG, PHOS, CMP, LIPID, URIC #### [facility] [address] [place] [address] Dr. Sarmad Patino PROF 14(COMP METB)on 022 Albumin [Mass/Vol] 3.8 g/dL Normal 3.4-5.0 [facility] Comment on above: Performed By: #### D DAVIDSON, MG, PHOS, CMP, LIPID, URIC #### [facility] [address] [place] [address] Dr. Sarmad Patino Albumin/Globulin [Mass ratio] 1.3 {ratio} Normal [facility] Comment on above: Performed By: #### D DAVIDSON, MG, PHOS, CMP, LIPID, URIC #### [facility] [address] [place] [address] Dr. Sarmad Patino ALP [Catalytic activity/Vol] 144 U/L Critically high 46-116 [facility] Comment on above: Performed By: #### D DAVIDSON, MG, PHOS, CMP, LIPID, URIC #### [facility] [address] [place] [address] Dr. Sarmad Patino ALT [Catalytic activity/Vol] 24 U/L Normal 14-59 [facility] Comment on above: Performed By: #### D DAVIDSON, MG, PHOS, CMP, LIPID, URIC #### [facility] [address] [place] [address] Dr. Sarmad Patino Anion gap [Moles/Vol] 13.7 mmol/L Normal [facility] Comment on above: Performed By: #### D DAVIDSON, MG, PHOS, CMP, LIPID, URIC #### [facility] [address] [place] [address] Dr. Sarmad Patino AST [Catalytic activity/Vol] 19 U/L Normal 15-37 [facility] Comment on above: Performed By: #### D DAVIDSON, MG, PHOS, CMP, LIPID, URIC #### [facility] [address] [place] [address] Dr. Sarmad Patino Bilirubin [Mass/Vol] 0.5 mg/dL Normal 0.2-1.0 [facility] Comment on above: Performed By: #### D DAVIDSON, MG, PHOS, CMP, LIPID, URIC #### [facility] [address] [address] [address] Sarmad Patino Calcium [Mass/Vol] 9.6 mg/dL Normal 8.5-10.1 [facility] Comment on above: Performed By: #### D DAVIDSON, MG, PHOS, CMP, LIPID, URIC #### [facility] [address] [place] [address] Dr. Sarmad Patino Chloride [Moles/Vol] 103 mmol/L Normal 98-107 [facility] Comment on above: Performed By: #### D DAVIDSON, MG, PHOS, CMP, LIPID, URIC #### [facility] [address] [address] [address] Sarmad Patino CO2 [Moles/Vol] 26.6 mmol/L Normal 21.0-32.0 [facility] Comment on above: Performed By: #### D DAVIDSON, MG, PHOS, CMP, LIPID, URIC #### [facility] [address] [place] [address] Dr. Sarmad Patino Creatinine [Mass/Vol] 0.75 mg/dL Normal 0.55-1.02 [facility] Comment on above: Performed By: #### D DAVIDSON, MG, PHOS, CMP, LIPID, URIC #### [facility] [address] [place] [address] Dr. Sarmad Pation EGFR-AF [facility] LUCIAN >60 Normal >=60 [facility] Comment on above: Performed By: #### D DAVIDSON, MG, PHOS, CMP, LIPID, URIC #### [facility] [address] [place] [address] Dr. Sarmad Patino EGFR-NON AF [facility] LUCIAN >60 Normal >=60 [facility] Comment on above: Performed By: #### D DAVIDSON, MG, PHOS, CMP, LIPID, URIC #### [facility] [address] [place] [address] Dr. Sarmad Patino Globulin (S) [Mass/Vol] 3.0 g/dL Normal [facility] Comment on above: Performed By: #### D DAVIDSON, MG, PHOS, CMP, LIPID, URIC #### [facility] [address] [address] [address] Sarmad Patino Glucose [Mass/Vol] 99 mg/dL Normal 74-106 [facility] Comment on above: Performed By: #### D DAVIDSON, MG, PHOS, CMP, LIPID, URIC #### [facility] [address] [address] [address] Sarmad Patino Potassium [Moles/Vol] 4.3 mmol/L Normal 3.5-5.1 [facility] Comment on above: Performed By: #### D DAVIDSON, MG, PHOS, CMP, LIPID, URIC #### [facility] [address] [place] [address] Dr. Sarmad Patino Protein [Mass/Vol] 6.8 g/dL Normal 6.4-8.2 The [facility] Comment on above: Performed By: #### D DAVIDSON, MG, PHOS, CMP, LIPID, URIC #### [facility] [address] [place] [address] Dr. Sarmad Patino Sodium [Moles/Vol] 139 mmol/L Normal 136-145 [facility] Comment on above: Performed By: #### D DAVIDSON, MG, PHOS, CMP, LIPID, URIC #### [facility] [address] [place] [address] Dr. Sarmad Patino Urea nitrogen [Mass/Vol] 16.0 mg/dL Normal 7.0-18.0 The [facility] Comment on above: Performed By: #### D DAVIDSON, MG, PHOS, CMP, LIPID, URIC #### [facility] [address] [place] [address] Dr. Sarmad Patino Urea nitrogen/Creatinine [Mass ratio] 21.3 mg/mg Normal The [facility] Comment on above: Performed By: #### D DAVIDSON, MG, PHOS, CMP, LIPID, URIC #### [facility] [address] [place] [address] Dr. Sarmad Patino URIC ACID SERUMon 02-08-2022 Urate [Mass/Vol] 5.4 mg/dL Normal 2.6-6.0 The [facility] Comment on above: Performed By: #### D DAVIDSON, MG, PHOS, CMP, LIPID, URIC #### [facility] [address] [address] [address] Sarmad Patino BK VIRUS PCR QUANTon 022 BKV DNA QUANT PCR PLASMA 27 IU/mL Normal Negative [facility] Comment on above: Result Comment: The linear range of the assay is 22 - 100,000,000 IU/mL. Performed By: #### D DAVIDSON, MG, PHOS, CMP, LIPID, URIC #### [facility] [address] [address] [address] Sarmad Patino Log10 BKV DNA Plasma 1.431 log10 IU/mL Normal [facility] Comment on above: Performed By: #### D DAVIDSON, MG, PHOS, CMP, LIPID, URIC #### [facility] [address] [place] [address] Dr. Sarmad Patino FK506 (TACROLIMUS) WHOLE BLO ODon 01-30-2022 Tacrolimus (FK506), Blood 6.5 ng/mL Normal 2.0-20.0 [facility] Comment on above: Result Comment: Trou gh (immediately following transplant) 15.0 . Trough (steady state, 2 weeks or more after transplant): 3.0 - 8.0 . Performed by LC-MS/MS technology. Performed By: #### D DAVIDSON, MG, PHOS, CMP, LIPID, URIC #### [facility] [address] [place] [address] Dr. Sarmad Patino RAPAMUNE(SIROLIMUS)on 2021 Rapamune(Sirolimus), whole blood 9.9 ng/mL Normal 3.0-20.0 [facility] Comment on above: Result Comment: Perf ormed by LC/MS-MS technology . This test was developed and its performance characteristics determined by [facility]. It has not been cleared or approved by the Food and Drug Administration. Performed By: #### D DAVIDSON, MG, PHOS, CMP, LIPID, URIC #### [facility] [address] [place] [address] Dr. Sarmad Patino BILIRUBIN CONJUGATED (DIRECT )on 01-28-2022 BILI, CONJUGATED 0.1 mg/dL Normal 0.0-0.2 [facility] Comment on above: Performed By: #### D DAVIDSON, MG, PHOS, CMP, LIPID, URIC #### [facility] [address] [place] [address] Dr. Sarmad Patino CBC AUTO DIFFon 01-28-2022 BASO # 0.0 103/ul Normal 0.0-0.1 The [facility] Comment on above: Performed By: #### D DAVIDSON, MG, PHOS, CMP, LIPID, URIC #### [facility] [address] [place] [address] Dr. Sarmad Patino Basophils/100 WBC (Bld) 0.3 % Normal 0.2-2.0 The [facility] Comment on above: Performed By: #### D DAVIDSON, MG, PHOS, CMP, LIPID, URIC #### [facility] [address] [place] [address] Dr. Sarmad Patino EO # 0.2 103/ul Normal 0.0-0.7 The [facility] Comment on above: Performed By: #### D DAVIDSON, MG, PHOS, CMP, LIPID, URIC #### [facility] [address] [place] [address] Dr. Sarmad Patino Eosinophils/100 WBC (Bld) 3.1 % Normal 0.9-7.0 [facility] Comment on above: Performed By: #### D DAVIDSON, MG, PHOS, CMP, LIPID, URIC #### [facility] [address] [place] [address] Dr. Sarmad Patino Erythrocyte distribution width (RBC) [Ratio] 15.4 % Critically high 11.0-15.0 The [facility] Comment on above: Performed By: #### D DAVIDSON, MG, PHOS, CMP, LIPID, URIC #### [facility] [address] [place] [address] Dr. Sarmad Patino Hematocrit (Bld) [Volume fraction] 42.6 % Normal 36.0-48.0 [facility] Comment on above: Performed By: #### D DAVIDSON, MG, PHOS, CMP, LIPID, URIC #### [facility] [address] [place] [address] Dr. Sarmad Patino Hemoglobin (Bld) [Mass/Vol] 14.0 g/dL Normal 12.0-16.0 [facility] Comment on above: Performed By: #### D DAVIDSON, MG, PHOS, CMP, LIPID, URIC #### [facility] [address] [place] [address] Dr. Sarmad Patino IG # 0.05 10e3/ul Critically high 0.00-0.03 [facility] Comment on above: Performed By: #### D DAVIDSON, MG, PHOS, CMP, LIPID, URIC #### [facility] [address] [address] [address] Sarmad Patino IG % 0.7 % Critically high 0.0-0.5 [facility] Comment on above: Performed By: #### D DAVIDSON, MG, PHOS, CMP, LIPID, URIC #### [facility] [address] [place] [address] Dr. Sarmad Patino LYMPH # 1.1 103/ul Critically low 1.2-3.8 The [facility] Comment on above: Performed By: #### D DAVIDSON, MG, PHOS, CMP, LIPID, URIC #### [facility] [address] [address] [address] Sarmad Patino Lymphocytes/100 WBC (Bld) 15.8 % Critically low 20.5-60.0 [facility] Comment on above: Performed By: #### D DAVIDSON, MG, PHOS, CMP, LIPID, URIC #### [facility] [address] [place] [address] Dr. Sarmad Patino MANUAL DIFF REQ NO Normal [facility] Comment on above: Performed By: #### D DAVIDSON, MG, PHOS, CMP, LIPID, URIC #### [facility] [address] [place] [address] Dr. Sarmad Patino MCH (RBC) [Entitic mass] 28.3 pg Normal 26.7-34.0 [facility] Comment on above: Performed By: #### D DAVIDSON, MG, PHOS, CMP, LIPID, URIC #### [facility] [address] [place] [address] Dr. Sarmad Patino MCHC (RBC) [Mass/Vol] 32.9 g/dL Normal 29.9-35.2 [facility] Comment on above: Performed By: #### D DAVIDSON, MG, PHOS, CMP, LIPID, URIC #### [facility] [address] [place] [address] Dr. Sarmad Patino MCV (RBC) [Entitic vol] 86.2 fL Normal 81.0-99.0 The [facility] Comment on above: Performed By: #### D DAVIDSON, MG, PHOS, CMP, LIPID, URIC #### [facility] [address] [place] [address] Dr. Sarmad Patino MONO # 0.8 103/ul Normal 0.3-0.8 The [facility] Comment on above: Performed By: #### D DAVIDSON, MG, PHOS, CMP, LIPID, URIC #### [facility] [address] [place] [address] Dr. Sarmad Patino Monocytes/100 WBC (Bld) 11.0 % Normal 1.7-12.0 The [facility] Comment on above: Performed By: #### D DAVIDSON, MG, PHOS, CMP, LIPID, URIC #### [facility] [address] [place] [address] Dr. Sarmad Patino NEUT # 4.8 103/ul Normal 1.4-6.5 The [facility] Comment on above: Performed By: #### D DAVIDSON, MG, PHOS, CMP, LIPID, URIC #### [facility] [address] [place] [address] Dr. Sarmad Patino Neutrophils/100 WBC (Bld) 69.1 % Normal 43.0-75.0 The [facility] Comment on above: Performed By: #### D DAVIDSON, MG, PHOS, CMP, LIPID, URIC #### [facility] [address] [place] [address] Dr. Sarmad Patino Platelet mean volume (Bld) [Entitic vol] 10.8 fL Normal 9.5-13.5 The [facility] Comment on above: Performed By: #### D DAVIDSON, MG, PHOS, CMP, LIPID, URIC #### [facility] [address] [address] [address] Sarmad Patino PLT 208 103/ul Normal 150-450 [facility] Comment on above: Performed By: #### D DAVIDSON, MG, PHOS, CMP, LIPID, URIC #### [facility] [address] [address] [address] Sarmad Patino RBC 4.94 106/ul Normal 4.20-5.40 The [facility] Comment on above: Performed By: #### D DAVIDSON, MG, PHOS, CMP, LIPID, URIC #### [facility] [address] [address] [address] Sarmad Patino WBC 7.0 103/ul Normal 4.0-11.0 [facility] Comment on above: Performed By: #### D DAVIDSON, MG, PHOS, CMP, LIPID, URIC #### [facility] [address] [address] [address] Sarmad Patino GLYCOHEMOGLOBIN A1Con 2021 ADA RECOMMENDATION SEE BELOW Normal [facility] Comment on above: Result Comment: ADA RECOMMENDED LIMIT 4.0 - 6.0 ADA THERAPEUTIC TARGET < 7.0 ACTION SUGGESTED > 7.0 Performed By: #### D DAVIDSON, MG, PHOS, CMP, LIPID, URIC #### [facility] [address] [address] [address] Sarmad Patino Glucose [Mass/Vol] 137 mg/dL Normal The [facility] Comment on above: Performed By: #### D DAVIDSON, MG, PHOS, CMP, LIPID, URIC #### [facility] [address] [address] [address] Sarmad Patino HbA1c (Bld) [Mass fraction] 6.4 % Critically high 4.5-6.2 [facility] Comment on above: Performed By: #### D DAVIDSON, MG, PHOS, CMP, LIPID, URIC #### [facility] [address] [address] [address] Sarmad Patino LIPID PROFILEon 01-28-2022 CHOL-HDL RATIO NORM SEE BELOW Normal [facility] Comment on above: Result Comment: 3.3 - 4.4 LOW RISK 4.4 - 7.1 AVERAGE RISK 7.1 - 11.0 MODERATE RISK >11.0 HIGH RISK Performed By: #### D DAVIDSON, MG, PHOS, CMP, LIPID, URIC #### [facility] [address] [place] [address] Dr. Sarmad Patino Cholesterol [Mass/Vol] 209 mg/dL Critically high <=200 [facility] Comment on above: Performed By: #### D DAVIDSON, MG, PHOS, CMP, LIPID, URIC #### [facility] [address] [place] [address] Dr. Sarmad Patino Cholesterol in HDL [Mass/Vol] 59 mg/dL Normal 40-60 [facility] Comment on above: Performed By: #### D DAVIDSON, MG, PHOS, CMP, LIPID, URIC #### [facility] [address] [place] [address] Dr. Sarmad Patino Cholesterol in LDL [Mass/Vol] 100.4 mg/dL Normal [facility] Comment on above: Performed By: #### D DAVIDSON, MG, PHOS, CMP, LIPID, URIC #### [facility] [address] [place] [address] Dr. Sarmad Patino Cholesterol.total/Cho lesterol in HDL [Mass ratio] 3.5 {ratio} Normal [facility] Comment on above: Performed By: #### D DAVIDSON, MG, PHOS, CMP, LIPID, URIC #### [facility] [address] [place] [address] Dr. Sarmad Patino HDL NORMAL > or = 60 mg/dl - LO W CARDIOVASCULAR RISK <40 mg/dl - HIGH CARDIOVASCULAR RISK Normal The [facility] Comment on above: Performed By: #### D DAVIDSON, MG, PHOS, CMP, LIPID, URIC #### [facility] [address] [place] [address] Dr. Sarmad Patino LDL CALC NORMAL SEE BELOW Normal [facility] Comment on above: Result Comment: <100 mg/dl OPTIMAL 100 - 129 mg/dl NEAR OR ABOVE OPTIMAL 130 - 159 mg/dl BORDERLINE HIGH 160 - 189 mg/dl HIGH >190 mg/dl VERY HIGH Performed By: #### D DAVIDSON, MG, PHOS, CMP, LIPID, URIC #### [facility] [address] [address] [address] Sarmad Patino Triglyceride [Mass/Vol] 248 mg/dL Critically high <=150 [facility] Comment on above: Performed By: #### D DAVIDSON, MG, PHOS, CMP, LIPID, URIC #### [facility] [address] [address] [address] Sarmad Patino VLDL CALC 49.6 mg/dL Normal [facility] Comment on above: Performed By: #### D DAVIDSON, MG, PHOS, CMP, LIPID, URIC #### [facility] [address] [address] [address] Sarmad Patino MAGNESIUMon 01-28-2022 Magnesium [Mass/Vol] 1.6 mg/dL Critically low 1.8-2.4 [facility] Comment on above: Performed By: #### D DAVIDSON, MG, PHOS, CMP, LIPID, URIC #### [facility] [address] [place] [address] Dr. Sarmad Patino PHOSPHORUSon 01-28-2022 Phosphate [Mass/Vol] 2.7 mg/dL Normal 2.6-4.7 [facility] Comment on above: Performed By: #### D DAVIDSON, MG, PHOS, CMP, LIPID, URIC #### [facility] [address] [place] [address] Dr. Sarmad Patino PROF 14(COMP METB)on 022 Albumin [Mass/Vol] 3.3 g/dL Critically low 3.4-5.0 [facility] Comment on above: Performed By: #### D DAVIDSON, MG, PHOS, CMP, LIPID, URIC #### [facility] [address] [address] [address] Sarmad Patino Albumin/Globulin [Mass ratio] 0.9 {ratio} Normal [facility] Comment on above: Performed By: #### D DAVIDSON, MG, PHOS, CMP, LIPID, URIC #### [facility] [address] [place] [address] Dr. Sarmad Patino ALP [Catalytic activity/Vol] 124 U/L Critically high 46-116 [facility] Comment on above: Performed By: #### D DAVIDSON, MG, PHOS, CMP, LIPID, URIC #### [facility] [address] [address] [address] Sarmad Patino ALT [Catalytic activity/Vol] 28 U/L Normal 14-59 [facility] Comment on above: Performed By: #### D DAVIDSON, MG, PHOS, CMP, LIPID, URIC #### [facility] [address] [address] [address] Sarmad Patino Anion gap [Moles/Vol] 12.0 mmol/L Normal Th e [facility] Comment on above: Performed By: #### D DAVIDSON, MG, PHOS, CMP, LIPID, URIC #### [facility] [address] [place] [address] Dr. Sarmad Patino AST [Catalytic activity/Vol] 20 U/L Normal 15-37 [facility] Comment on above: Performed By: #### D DAVIDSON, MG, PHOS, CMP, LIPID, URIC #### [facility] [address] [place] [address] Dr. Sarmad Patino Bilirubin [Mass/Vol] 0.5 mg/dL Normal 0.2-1.0 [facility] Comment on above: Performed By: #### D DAVIDSON, MG, PHOS, CMP, LIPID, URIC #### [facility] [address] [place] [address] Dr. Sarmad Patino Calcium [Mass/Vol] 9.1 mg/dL Normal 8.5-10.1 [facility] Comment on above: Performed By: #### D DAVIDSON, MG, PHOS, CMP, LIPID, URIC #### [facility] [address] [address] [address] Sarmad Patino Chloride [Moles/Vol] 104 mmol/L Normal 98-107 [facility] Comment on above: Performed By: #### D DAVIDSON, MG, PHOS, CMP, LIPID, URIC #### [facility] [address] [address] [address] Sarmad Patino CO2 [Moles/Vol] 25.7 mmol/L Normal 21.0-32.0 [facility] Comment on above: Performed By: #### D DAVIDSON, MG, PHOS, CMP, LIPID, URIC #### [facility] [address] [place] [address] Dr. Sarmad Patino Creatinine [Mass/Vol] 0.77 mg/dL Normal 0.55-1.02 [facility] Comment on above: Performed By: #### D DAVIDSON, MG, PHOS, CMP, LIPID, URIC #### [facility] [address] [place] [address] Dr. Sarmad Patino EGFR-AF [facility] LUCIAN >60 Normal >=60 [facility] Comment on above: Performed By: #### D DAVIDSON, MG, PHOS, CMP, LIPID, URIC #### [facility] [address] [place] [address] Dr. Sarmad Patino EGFR-NON AF [facility] LUCIAN >60 Normal >=60 [facility] Comment on above: Performed By: #### D DAVIDSON, MG, PHOS, CMP, LIPID, URIC #### [facility] [address] [place] [address] Dr. Sarmad Patino Globulin (S) [Mass/Vol] 3.7 g/dL Normal [facility] Comment on above: Performed By: #### D DAVIDSON, MG, PHOS, CMP, LIPID, URIC #### [facility] [address] [place] [address] Dr. Sarmad Patino Glucose [Mass/Vol] 108 mg/dL Critically high 74-106 T [facility] Comment on above: Performed By: #### D DAVIDSON, MG, PHOS, CMP, LIPID, URIC #### [facility] [address] [place] [address] Dr. Sarmad Patino Potassium [Moles/Vol] 3.7 mmol/L Normal 3.5-5.1 [facility] Comment on above: Performed By: #### D DAVIDSON, MG, PHOS, CMP, LIPID, URIC #### [facility] [address] [place] [address] Dr. Sarmad Patino Protein [Mass/Vol] 7.0 g/dL Normal 6.4-8.2 The [facility] Comment on above: Performed By: #### D DAVIDSON, MG, PHOS, CMP, LIPID, URIC #### [facility] [address] [address] [address] Sarmad Patino Sodium [Moles/Vol] 138 mmol/L Normal 136-145 The [facility] Comment on above: Performed By: #### D DAVIDSON, MG, PHOS, CMP, LIPID, URIC #### [facility] [address] [address] [address] Sarmad Patino Urea nitrogen [Mass/Vol] 15.0 mg/dL Normal 7.0-18.0 [facility] Comment on above: Performed By: #### D DAVIDSON, MG, PHOS, CMP, LIPID, URIC #### [facility] [address] [address] [address] Sarmad Patino Urea nitrogen/Creatinine [Mass ratio] 19.5 mg/mg Normal [facility] Comment on above: Performed By: #### D DAVIDSON, MG, PHOS, CMP, LIPID, URIC #### [facility] [address] [address] [address] Sarmad Patino URIC ACID SERUMon 01-28-2022 Urate [Mass/Vol] 4.3 mg/dL Normal 2.6-6.0 [facility] Comment on above: Performed By: #### D DAVIDSON, MG, PHOS, CMP, LIPID, URIC #### [facility] [address] [address] [address] Sarmad Patino Quick Strepon 01-12-2022 S. pyogenes Org specific cx Ql (Throat) Negative [employer] Other Quick Strep [employer] [facility] [employer] Other XR CHEST 1 Von 01-07-2022 XR [...] ARTEMIO BERNARD Date: 2022-01-07 15:00 Normal The [facility] CBC W MANUAL DIFFon 01-04-20 22 ATYPICAL LYMPH # 1.40 103/ul Normal The [facility] Comment on above: Performed By: #### D DAVIDSON, MG, PHOS, CMP, LIPID, URIC #### [facility] [address] [place] [address] Dr. Sarmad Patino ATYPICAL LYMPH % 10 % Normal The [facility] Comment on above: Performed By: #### D DAVIDSON, MG, PHOS, CMP, LIPID, URIC #### [facility] [address] [place] [address] Dr. Sarmad Patino BAND # 0.6 103/ul Critically high 0.0-0.3 The [facility] Comment on above: Performed By: #### D DAVIDSON, MG, PHOS, CMP, LIPID, URIC #### [facility] [address] [address] [address] Sarmad Patino BAND % 4 % Normal 0-5 The [facility] Comment on above: Performed By: #### D DAVIDSON, MG, PHOS, CMP, LIPID, URIC #### [facility] [address] [address] [address] Sarmad Patino BASOM # 0.00 103/ul Normal 0.00-0.10 [facility] Comment on above: Performed By: #### D DAVIDSON, MG, PHOS, CMP, LIPID, URIC #### [facility] [address] [address] [address] Sarmad Patino BASOM % 0.0 % Critically low 0.2-2.0 [facility] Comment on above: Performed By: #### D DAVIDSON, MG, PHOS, CMP, LIPID, URIC #### [facility] [address] [address] [address] Sarmad Patino BLAST # Normal [facility] Comment on above: Performed By: #### D DAVIDSON, MG, PHOS, CMP, LIPID, URIC #### [facility] [address] [place] [address] Dr. Sarmad Patino BLAST % Normal [facility] Comment on above: Performed By: #### D DAVIDSON, MG, PHOS, CMP, LIPID, URIC #### [facility] [address] [address] [address] Sarmad Patino CORRECTED WBC Normal 4.0-11.0 [facility] Comment on above: Performed By: #### D DAIVDSON, MG, PHOS, CMP, LIPID, URIC #### [facility] [address] [place] [address] Dr. Sarmad Patino EOS # 0.14 103/ul Normal 0.00-0.70 [facility] Comment on above: Performed By: #### D DAVIDSON, MG, PHOS, CMP, LIPID, URIC #### [facility] [address] [place] [address] Dr. Sarmad Patino EOS% 1.0 % Normal 0.9-7.0 [facility] Comment on above: Performed By: #### D DAVIDSON, MG, PHOS, CMP, LIPID, URIC #### [facility] [address] [place] [address] Dr. Sarmad Patino HCT 42.8 % Normal 36.0-48.0 [facility] Comment on above: Performed By: #### D DAVIDSON, MG, PHOS, CMP, LIPID, URIC #### [facility] [address] [place] [address] Dr. Sarmad Patino HGB 14.2 g/dl Normal 12.0-16.0 [facility] Comment on above: Performed By: #### D DAVIDSON, MG, PHOS, CMP, LIPID, URIC #### [facility] [address] [place] [address] Dr. Sarmad Patino LYMPHM # 0.00 103/ul Critically low 1.20-3.80 [facility] Comment on above: Performed By: #### D DAVIDSON, MG, PHOS, CMP, LIPID, URIC #### [facility] [address] [address] [address] Sarmad Patino LYMPHM% 0.0 % Critically low 20.5-60.0 [facility] Comment on above: Performed By: #### D DAVIDSON, MG, PHOS, CMP, LIPID, URIC #### [facility] [address] [address] [address] Sarmad Patino MCH 28.8 pg Normal 26.7-34.0 [facility] Comment on above: Performed By: #### D DAVIDSON, MG, PHOS, CMP, LIPID, URIC #### [facility] [address] [place] [address] Dr. Sarmad Patino MCHC 33.2 g/dl Normal 29.9-35.2 [facility] Comment on above: Performed By: #### D DAVIDSON, MG, PHOS, CMP, LIPID, URIC #### [facility] [address] [address] [address] Sarmad Patino MCV 86.8 fL Normal 81.0-99.0 [facility] Comment on above: Performed By: #### D DAVIDSON, MG, PHOS, CMP, LIPID, URIC #### [facility] [address] [place] [address] Dr. Sarmad Patino METAMYELOCYTE # Normal The [facility] Comment on above: Performed By: #### D DAVIDSON, MG, PHOS, CMP, LIPID, URIC #### [facility] [address] [address] [address] Sarmad Patino METAMYELOCYTE % Normal The [facility] Comment on above: Performed By: #### D DAVIDSON, MG, PHOS, CMP, LIPID, URIC #### [facility] [address] [address] [address] Sarmad Patino MONOM# 0.84 103/ul Critically high 0.30-0.80 [facility] Comment on above: Performed By: #### D DAVIDSON, MG, PHOS, CMP, LIPID, URIC #### [facility] [address] [address] [address] Sarmad Patino MONOM% 6.0 % Normal 1.7-12.0 [facility] Comment on above: Performed By: #### D DAVIDSON, MG, PHOS, CMP, LIPID, URIC #### [facility] [address] [address] [address] Sarmad Patino MPV 11.5 fL Normal 9.5-13.5 [facility] Comment on above: Performed By: #### D DAVIDSON, MG, PHOS, CMP, LIPID, URIC #### [facility] [address] [address] [address] Sarmad Patino MYELOCYTE # 0.3 103/ul Normal [facility] Comment on above: Performed By: #### D DAVIDSON, MG, PHOS, CMP, LIPID, URIC #### [facility] [address] [place] [address] Dr. Sarmad Patino MYELOCYTE % 2 % Normal [facility] Comment on above: Performed By: #### D DAVIDSON, MG, PHOS, CMP, LIPID, URIC #### [facility] [address] [address] [address] Sarmad Patino NRBC Normal [facility] Comment on above: Performed By: #### D DAVIDSON, MG, PHOS, CMP, LIPID, URIC #### [facility] [address] [address] [address] Sarmad Patino PLT 180 103/ul Normal 150-450 [facility] Comment on above: Performed By: #### D DAVIDSON, MG, PHOS, CMP, LIPID, URIC #### [facility] [address] [address] [address] Sarmad Patino RBC 4.93 106/ul Normal 4.20-5.40 The [facility] Comment on above: Performed By: #### D DAVIDSON, MG, PHOS, CMP, LIPID, URIC #### [facility] [address] [address] [address] Sarmad Patino RDW 13.9 % Normal 11.0-15.0 [facility] Comment on above: Performed By: #### D DAVIDSON, MG, PHOS, CMP, LIPID, URIC #### [facility] [address] [address] [address] Sarmad Patino SEG # 10.78 103/ul Critically high 1.40-6.[address] [facility] Comment on above: Performed By: #### D DAVIDSON, MG, PHOS, CMP, LIPID, URIC #### [facility] [address] [address] [address] Sarmad Patino SEG % 77.0 % Critically high 43.0-75.0 The [facility] Comment on above: Performed By: #### D DAVIDSON, MG, PHOS, CMP, LIPID, URIC #### [facility] [address] [address] [address] Sarmad Patino WBC 14.0 103/ul Critically high 4.0-11.0 The [facility] Comment on above: Performed By: #### D DAVIDSON, MG, PHOS, CMP, LIPID, URIC #### [facility] [id number] Sarmad Patino CT NECK ST W [...] middle ear cavities clear. Skull base intact. [employer] spaces normal. Parotid glands normal. Submandibular glands [...] Date: 2022-01-03 10:40 Normal The [facility] SARS-CoV-2 (COVID-19) RNA MURALI+probe Ql (Unsp spec) Detected Critically abnormal NOT DETECTED The [facility] Comment on above: Result Comment: This test is not yet approved or cleared by the [place] FDA. When there are no FDA-approved or cleared tests available, and other criteria are met, FDA can make tests available under an emergency access mechanism called an Emergency Use Authorization (EUA). The EUA for this test is supported by the Ware[employer] Examiner of Health and Human Service's declaration that [...] PHOS, CMP, LIPID, URIC #### [facility] [address] [address] [address] Sarmad Patino GROUP A STREP CULTUREon S. pyogenes Ag Ql (Unsp spec) Culture Observations: Negative for Group A Streptococcus Normal The [facility] Comment on above: Performed By: #### U JUVE, LIPID, MG, CMP, DBIL, PHOS #### [facility] [address] [address] [address] Sarmad Patino INFLUENZA A AND B AGon 01-03 INFLUENZA A AG Negative Normal NEGATIVE SEE COMMENT The [facility] Comment on above: Performed By: #### D DAVIDSON, MG, PHOS, CMP, LIPID, URIC #### [facility] [address] [place] [address] Dr. Sarmad Patino INFLUENZA B AG Negative Normal NEGATIVE SEE COMMENT [facility] Comment on above: Performed By: #### D DAVIDSON, MG, PHOS, CMP, LIPID, URIC #### [facility] [address] [place] [address] Dr. Sarmad Patino INTERNAL CONTROLS Within Normal Limits Normal Wi thin Normal Limits [facility] Comment on above: Performed By: #### D DAVIDSON, MG, PHOS, CMP, LIPID, URIC #### [facility] [address] [place] [address] Dr. Sarmad Patino PROF 14(COMP METB)on 022 Albumin [Mass/Vol] 2.5 g/dL Critically low 3.4-5.0 Th e [facility] Comment on above: Performed By: #### U JUVE, LIPID, MG, CMP, DBIL, PHOS #### [facility] [address] [place] [address] Dr. Sarmad Patino Albumin/Globulin [Mass ratio] 0.5 {ratio} Normal [facility] Comment on above: Performed By: #### U JUVE, LIPID, MG, CMP, DBIL, PHOS #### [facility] [address] [place] [address] Dr. Sarmad Patino ALP [Catalytic activity/Vol] 185 U/L Critically high 46-116 [facility] Comment on above: Performed By: #### U JUVE, LIPID, MG, CMP, DBIL, PHOS #### [facility] [address] [address] [address] Sarmad Patino ALT [Catalytic activity/Vol] 108 U/L Critically high 14-59 [facility] Comment on above: Performed By: #### U JUVE, LIPID, MG, CMP, DBIL, PHOS #### [facility] [address] [place] [address] Dr. Sarmad Patino Anion gap [Moles/Vol] 8.3 mmol/L Normal [facility] Comment on above: Performed By: #### U JUVE, LIPID, MG, CMP, DBIL, PHOS #### [facility] [address] [address] [address] Sarmad Patino AST [Catalytic activity/Vol] 59 U/L Critically high 15-37 [facility] Comment on above: Performed By: #### U JUVE, LIPID, MG, CMP, DBIL, PHOS #### [facility] [address] [place] [address] Dr. Sarmad Patino Bilirubin [Mass/Vol] 0.6 mg/dL Normal 0.2-1.0 [facility] Comment on above: Performed By: #### U JUVE, LIPID, MG, CMP, DBIL, PHOS #### [facility] [address] [place] [address] Dr. Sarmad Patino Calcium [Mass/Vol] 9.0 mg/dL Normal 8.5-10.1 The [facility] Comment on above: Performed By: #### U JUVE, LIPID, MG, CMP, DBIL, PHOS #### [facility] [address] [place] [address] Dr. Sarmad Patino Chloride [Moles/Vol] 100 mmol/L Normal 98-107 [facility] Comment on above: Performed By: #### U JUVE, LIPID, MG, CMP, DBIL, PHOS #### [facility] [address] [place] [address] Dr. Sarmad Patino CO2 [Moles/Vol] 29.0 mmol/L Normal 21.0-32.0 [facility] Comment on above: Performed By: #### U JUVE, LIPID, MG, CMP, DBIL, PHOS #### [facility] [address] [place] [address] Dr. Sarmad Patino Creatinine [Mass/Vol] 1.05 mg/dL Critically high 0.55-1.02 [facility] Comment on above: Performed By: #### U JUVE, LIPID, MG, CMP, DBIL, PHOS #### [facility] [address] [place] [address] Dr. Sarmad Patino EGFR-AF [facility]CIAN >60 Normal >=60 [facility] Comment on above: Performed By: #### U JUVE, LIPID, MG, CMP, DBIL, PHOS #### [facility] [address] [place] [address] Dr. Sarmad Patino EGFR-NON AF [facility] LUCIAN 53 mL/min/1.73m2 Critically low >=60 [facility] Comment on above: Performed By: #### U JUVE, LIPID, MG, CMP, DBIL, PHOS #### [facility] [address] [address] [address] Sarmad Patino Globulin (S) [Mass/Vol] 4.6 g/dL Normal [facility] Comment on above: Performed By: #### U JUVE, LIPID, MG, CMP, DBIL, PHOS #### [facility] [address] [address] [address] Sarmad Patino Glucose [Mass/Vol] 154 mg/dL Critically high 74-106 T [facility] Comment on above: Performed By: #### U JUVE, LIPID, MG, CMP, DBIL, PHOS #### [facility] [address] [place] [address] Dr. Sarmad Patino Potassium [Moles/Vol] 3.3 mmol/L Critically low 3.5-5.1 [facility] Comment on above: Performed By: #### U JUVE, LIPID, MG, CMP, DBIL, PHOS #### [facility] [address] [place] [address] Dr. Sarmad Patino Protein [Mass/Vol] 7.1 g/dL Normal 6.4-8.2 [facility] Comment on above: Performed By: #### U JUVE, LIPID, MG, CMP, DBIL, PHOS #### [facility] [address] [place] [address] Dr. Sarmad Patino Sodium [Moles/Vol] 134 mmol/L Critically low 136-145 Th [facility] Comment on above: Performed By: #### U JUVE, LIPID, MG, CMP, DBIL, PHOS #### [facility] [address] [place] [address] Dr. Sarmad Patino Urea nitrogen [Mass/Vol] 24.0 mg/dL Critically high 7.0-18.0 [facility] Comment on above: Performed By: #### U JUVE, LIPID, MG, CMP, DBIL, PHOS #### [facility] [address] [place], [place] [address] Dr. Sarmad Patino Urea nitrogen/Creatinine [Mass ratio] 22.9 mg/mg Normal [facility] Comment on above: Performed By: #### U JUVE, LIPID, MG, CMP, DBIL, PHOS #### [facility] [address] [place], [place] [address] Dr. Sarmad Patino STREPT SCREENon 01-03-2022 STREP SCREEN A Negative Normal NEGATIVE [facility] Comment on above: Performed By: #### U JUVE, LIPID, MG, CMP, DBIL, PHOS #### [facility] [phone] Sarmad Patino XR CHEST 2 Von [...] Date: 2022-01-03 03:54 Normal The [facility] Quick Strepon 12-28-2021 S. pyogenes Org specific cx Ql (Throat) Negative [employer] Other Quick Strep [employer] Other SARS-CoV-2 (COVID-19) RNA NA A+probe Ql (Resp)on 12-25-2021 SARS-CoV-2 (COVID-19) RNA MURALI+probe Ql (Unsp spec) Negative [employer] Other FK506 (TACROLIMUS) WHOLE BLO ODon 12-08-2021 Tacrolimus (FK506), Blood 6.6 ng/mL Normal 2.0-20.0 The [facility] Comment on above: Result Comment: Trou gh (immediately following transplant) 15.0 . Trough (steady state, 2 weeks or more after transplant): 3.0 - 8.0 . Performed by LC-MS/MS technology. Performed By: #### D DAVIDSON, MG, PHOS, CMP, LIPID, URIC #### [facility] [address] [place] [address] Dr. Sarmad Patino RAPAMUNE(SIROLIMUS)on 2021 Rapamune(Sirolimus), whole blood 9.6 ng/mL Normal 3.0-20.0 [facility] Comment on above: Result Comment: Perf ormed by LC/MS-MS technology . This test was developed and its performance characteristics determined by [employer]. It has not been cleared or approved by the Food and Drug Administration. Performed By: #### D DAVIDSON, MG, PHOS, CMP, LIPID, URIC #### [facility] [address] [place] [address] Dr. Sarmad Patino BILIRUBIN CONJUGATED (DIRECT )on 12-05-2021 BILI, CONJUGATED 0.1 mg/dL Normal 0.0-0.2 [facility] Comment on above: Performed By: #### D DAVIDSON, MG, PHOS, CMP, LIPID, URIC #### [facility] [address] [place] [address] Dr. Sarmad Patino CBC W MANUAL DIFFon 12-06-19 22 ATYPICAL LYMPH # Normal [facility] Comment on above: Performed By: #### D DAVIDSON, MG, PHOS, CMP, LIPID, URIC #### [facility] [address] [place] [address] Dr. Sarmad Patino ATYPICAL LYMPH % Normal [facility] Comment on above: Performed By: #### D DAVIDSON, MG, PHOS, CMP, LIPID, URIC #### [facility] [address] [place] [address] Dr. Sarmad Patino BAND # Normal 0.0-0.3 The [facility] Comment on above: Performed By: #### D DAVIDSON, MG, PHOS, CMP, LIPID, URIC #### [facility] [address] [address] [address] Sarmad Patino BAND % Normal 0-5 The [facility] Comment on above: Performed By: #### D DAVIDSON, MG, PHOS, CMP, LIPID, URIC #### [facility] [address] [address] [address] Sarmad Patino BASOM # 0.00 103/ul Normal 0.00-0.10 [facility] Comment on above: Performed By: #### D DAVIDSON, MG, PHOS, CMP, LIPID, URIC #### [facility] [address] [address] [address] Sarmad Patino BASOM % 0.0 % Critically low 0.2-2.0 [facility] Comment on above: Performed By: #### D DAVIDSON, MG, PHOS, CMP, LIPID, URIC #### [facility] [address] [address] [address] Sarmad Patino BLAST # Normal [facility] Comment on above: Performed By: #### D DAVIDSON, MG, PHOS, CMP, LIPID, URIC #### [facility] [address] [address] [address] Sarmad Patino BLAST % Normal [facility] Comment on above: Performed By: #### D DAVIDSON, MG, PHOS, CMP, LIPID, URIC #### [facility] [address] [address] [address] Sarmad Patino CORRECTED WBC Normal 4.0-11.0 [facility] Comment on above: Performed By: #### D DAVIDSON, MG, PHOS, CMP, LIPID, URIC #### [facility] [address] [address] [address] Sarmad Patino EOS # 0.15 103/ul Normal 0.00-0.70 [facility] Comment on above: Performed By: #### D DAVIDSON, MG, PHOS, CMP, LIPID, URIC #### [facility] [address] [address] [address] Sarmad Patino EOS% 2.0 % Normal 0.9-7.0 [facility] Comment on above: Performed By: #### D DAVIDSON, MG, PHOS, CMP, LIPID, URIC #### [facility] [address] [address] [address] Sarmad Patino HCT 47.5 % Normal 36.0-48.0 [facility] Comment on above: Performed By: #### D DAVIDSON, MG, PHOS, CMP, LIPID, URIC #### [facility] [address] [address] [address] Sarmad Patino HGB 15.6 g/dl Normal 12.0-16.0 [facility] Comment on above: Performed By: #### D DAVIDSON, MG, PHOS, CMP, LIPID, URIC #### [facility] [address] [place] [address] Dr. Sarmad Patino LYMPHM # 1.46 103/ul Normal 1.20-3.80 [facility] Comment on above: Performed By: #### D DAVIDSON, MG, PHOS, CMP, LIPID, URIC #### [facility] [address] [place] [address] Dr. Sarmad Patino LYMPHM% 19.0 % Critically low 20.5-60.0 [facility] Comment on above: Performed By: #### D DAVIDSON, MG, PHOS, CMP, LIPID, URIC #### [facility] [address] [place] [address] Dr. Sarmad Patino MCH 28.9 pg Normal 26.7-34.0 [facility] Comment on above: Performed By: #### D DAVIDSON, MG, PHOS, CMP, LIPID, URIC #### [facility] [address] [place] [address] Dr. Sarmad Patino MCHC 32.8 g/dl Normal 29.9-35.2 [facility] Comment on above: Performed By: #### D DAVIDSON, MG, PHOS, CMP, LIPID, URIC #### [facility] [address] [place] [address] Dr. Sarmad Patino MCV 88.1 fL Normal 81.0-99.0 [facility] Comment on above: Performed By: #### D DAVIDSON, MG, PHOS, CMP, LIPID, URIC #### [facility] [address] [address] [address] Sarmad Patino METAMYELOCYTE # Normal [facility] Comment on above: Performed By: #### D DAVIDSON, MG, PHOS, CMP, LIPID, URIC #### [facility] [address] [address] [address] Sarmad Patino METAMYELOCYTE % Normal [facility] Comment on above: Performed By: #### D DAVIDSON, MG, PHOS, CMP, LIPID, URIC #### [facility] [address] [address] [address] Sarmad Patino MONOM# 0.85 103/ul Critically high 0.30-0.80 [facility] Comment on above: Performed By: #### D DAVIDSON, MG, PHOS, CMP, LIPID, URIC #### [facility] [address] [address] [address] Sarmad Patino MONOM% 11.0 % Normal 1.7-12.0 [facility] Comment on above: Performed By: #### D DAVIDSON, MG, PHOS, CMP, LIPID, URIC #### [facility] [address] [address] [address] Sarmad Patino MPV 11.3 fL Normal 9.5-13.5 [facility] Comment on above: Performed By: #### D DAVIDSON, MG, PHOS, CMP, LIPID, URIC #### [facility] [address] [address] [address] Sarmad Patino MYELOCYTE # Normal The [facility] Comment on above: Performed By: #### D DAVIDSON, MG, PHOS, CMP, LIPID, URIC #### [facility] [address] [address] [address] Sarmad Patino MYELOCYTE % Normal The [facility] Comment on above: Performed By: #### D DAVIDSON, MG, PHOS, CMP, LIPID, URIC #### [facility] [address] [address] [address] Sarmad Patino NRBC Normal The [facility] Comment on above: Performed By: #### D DAVIDSON, MG, PHOS, CMP, LIPID, URIC #### [facility] [address] [address] [address] Samrad Patino PLT 214 103/ul Normal 150-450 [facility] Comment on above: Performed By: #### D DAVIDSON, MG, PHOS, CMP, LIPID, URIC #### [facility] [address] [address] [address] Sarmad Patino RBC 5.39 106/ul Normal 4.20-5.40 [facility] Comment on above: Performed By: #### D DAVIDSON, MG, PHOS, CMP, LIPID, URIC #### [facility] [address] [place] [address] Dr. Sarmad Patino RDW 13.8 % Normal 11.0-15.0 [facility] Comment on above: Performed By: #### D DAVIDSON, MG, PHOS, CMP, LIPID, URIC #### [facility] [address] [place] [address] Dr. Sarmad Patino SEG # 5.24 103/ul Normal 1.40-6.50 [facility] Comment on above: Performed By: #### D DAVIDSON, MG, PHOS, CMP, LIPID, URIC #### [facility] [address] [place] [address] Dr. Sarmad Patino SEG % 68.0 % Normal 43.0-75.0 [facility] Comment on above: Performed By: #### D DAVIDSON, MG, PHOS, CMP, LIPID, URIC #### [facility] [address] [place] [address] Dr. Sarmad Patino WBC 7.7 103/ul Normal 4.0-11.0 [facility] Comment on above: Performed By: #### D DAVIDSON, MG, PHOS, CMP, LIPID, URIC #### [facility] [address] [place] [address] Dr. Sarmad Patino LIPID PROFILEon 12-05-2021 CHOL-HDL RATIO NORM SEE BELOW Normal [facility] Comment on above: Result Comment: 3.3 - 4.4 LOW RISK 4.4 - 7.1 AVERAGE RISK 7.1 - 11.0 MODERATE RISK >11.0 HIGH RISK Performed By: #### D DAVIDSON, MG, PHOS, CMP, LIPID, URIC #### [facility] [address] [address] [address] Sarmad Patino Cholesterol [Mass/Vol] 170 mg/dL Normal <=200 [facility] Comment on above: Performed By: #### D DAVIDSON, MG, PHOS, CMP, LIPID, URIC #### [facility] [address] [address] [address] Sarmad Patino Cholesterol in HDL [Mass/Vol] 54 mg/dL Normal 40-60 [facility] Comment on above: Performed By: #### D DAVIDSON, MG, PHOS, CMP, LIPID, URIC #### [facility] [address] [address] [address] Sarmad Patino Cholesterol in LDL [Mass/Vol] 92.2 mg/dL Normal [facility] Comment on above: Performed By: #### D DAVIDSON, MG, PHOS, CMP, LIPID, URIC #### [facility] [address] [address] [address] Sarmad Patino Cholesterol.total/Cho lesterol in HDL [Mass ratio] 3.1 {ratio} Normal [facility] Comment on above: Performed By: #### D DAVIDSON, MG, PHOS, CMP, LIPID, URIC #### [facility] [address] [address] [address] Sarmad Patino HDL NORMAL > or = 60 mg/dl - LO W CARDIOVASCULAR RISK <40 mg/dl - HIGH CARDIOVASCULAR RISK Normal [facility] Comment on above: Performed By: #### D DAVIDSON, MG, PHOS, CMP, LIPID, URIC #### [facility] [address] [address] [address] Sarmad Patino LDL CALC NORMAL SEE BELOW Normal [facility] Comment on above: Result Comment: <100 mg/dl OPTIMAL 100 - 129 mg/dl NEAR OR ABOVE OPTIMAL 130 - 159 mg/dl BORDERLINE HIGH 160 - 189 mg/dl HIGH >190 mg/dl VERY HIGH Performed By: #### D DAVIDSON, MG, PHOS, CMP, LIPID, URIC #### [facility] [address] [address] [address] Sarmad Patino Triglyceride [Mass/Vol] 119 mg/dL Normal <=150 [facility] Comment on above: Performed By: #### D DAVIDSON, MG, PHOS, CMP, LIPID, URIC #### [facility] [address] [place] [address] Dr. Sarmad Patino VLDL CALC 23.8 mg/dL Normal [facility] Comment on above: Performed By: #### D DAVIDSON, MG, PHOS, CMP, LIPID, URIC #### [facility] [address] [place] [address] Dr. Sarmad Patino MAGNESIUMon 12-05-2021 Magnesium [Mass/Vol] 1.8 mg/dL Normal 1.8-2.4 [facility] Comment on above: Performed By: #### D DAVIDSON, MG, PHOS, CMP, LIPID, URIC #### [facility] [address] [place] [address] Dr. Sarmad Patino PHOSPHORUSon 12-05-2021 Phosphate [Mass/Vol] 3.8 mg/dL Normal 2.6-4.7 [facility] Comment on above: Performed By: #### D DAVIDSON, MG, PHOS, CMP, LIPID, URIC #### [facility] [address] [place] [address] Dr. Sarmad Patino PROF 14(COMP METB)on 022 Albumin [Mass/Vol] 3.7 g/dL Normal 3.4-5.0 [facility] Comment on above: Performed By: #### D DAVIDSON, MG, PHOS, CMP, LIPID, URIC #### [facility] [address] [place] [address] Dr. Sarmad Patino Albumin/Globulin [Mass ratio] 1.0 {ratio} Normal [facility] Comment on above: Performed By: #### D DAVIDSON, MG, PHOS, CMP, LIPID, URIC #### [facility] [address] [place] [address] Dr. Sarmad Patino ALP [Catalytic activity/Vol] 151 U/L Critically high 46-116 [facility] Comment on above: Performed By: #### D DAVIDSON, MG, PHOS, CMP, LIPID, URIC #### [facility] [address] [address] [address] Sarmad Patino ALT [Catalytic activity/Vol] 27 U/L Normal 14-59 [facility] Comment on above: Performed By: #### D DAVIDSON, MG, PHOS, CMP, LIPID, URIC #### [facility] [address] [address] [address] Sarmad Patino Anion gap [Moles/Vol] 14.5 mmol/L Normal Th e [facility] Comment on above: Performed By: #### D DAVIDSON, MG, PHOS, CMP, LIPID, URIC #### [facility] [address] [place] [address] Dr. Sarmad Patino AST [Catalytic activity/Vol] 25 U/L Normal 15-37 [facility] Comment on above: Performed By: #### D DAVIDSON, MG, PHOS, CMP, LIPID, URIC #### [facility] [address] [place] [address] Dr. Sarmad Patino Bilirubin [Mass/Vol] 0.4 mg/dL Normal 0.2-1.0 [facility] Comment on above: Performed By: #### D DAVIDSON, MG, PHOS, CMP, LIPID, URIC #### [facility] [address] [place] [address] Dr. Sarmad Patino Calcium [Mass/Vol] 9.4 mg/dL Normal 8.5-10.1 [facility] Comment on above: Performed By: #### D DAVIDSON, MG, PHOS, CMP, LIPID, URIC #### [facility] [address] [place] [address] Dr. Sarmad Patino Chloride [Moles/Vol] 103 mmol/L Normal 98-107 The [facility] Comment on above: Performed By: #### D DAVIDSON, MG, PHOS, CMP, LIPID, URIC #### [facility] [address] [place] [address] Dr. Sarmad Patino CO2 [Moles/Vol] 26.5 mmol/L Normal 21.0-32.0 [facility] Comment on above: Performed By: #### D DAVIDSON, MG, PHOS, CMP, LIPID, URIC #### [facility] [address] [address] [address] Sarmad Patino Creatinine [Mass/Vol] 0.87 mg/dL Normal 0.55-1.02 [facility] Comment on above: Performed By: #### D DAVIDSON, MG, PHOS, CMP, LIPID, URIC #### [facility] [address] [address] [address] Sarmad Patino EGFR-AF [facility] LUCIAN >60 Normal >=60 [facility] Comment on above: Performed By: #### D DAVIDSON, MG, PHOS, CMP, LIPID, URIC #### [facility] [address] [address] [address] Sarmad Patino EGFR-NON AF [facility]CIAN >60 Normal >=60 [facility] Comment on above: Performed By: #### D DAVIDSON, MG, PHOS, CMP, LIPID, URIC #### [facility] [address] [place] [address] Dr. Sarmad Patino Globulin (S) [Mass/Vol] 3.8 g/dL Normal [facility] Comment on above: Performed By: #### D DAVIDSON, MG, PHOS, CMP, LIPID, URIC #### [facility] [address] [place] [address] Dr. Sarmad Patino Glucose [Mass/Vol] 104 mg/dL Normal 74-106 [facility] Comment on above: Performed By: #### D DAVIDSON, MG, PHOS, CMP, LIPID, URIC #### [facility] [address] [address] [address] Sarmad Patino Potassium [Moles/Vol] 4.0 mmol/L Normal 3.5-5.1 The [facility] Comment on above: Performed By: #### D DAVIDSON, MG, PHOS, CMP, LIPID, URIC #### [facility] [address] [place] [address] Dr. Sarmad Patino Protein [Mass/Vol] 7.5 g/dL Normal 6.4-8.2 [facility] Comment on above: Performed By: #### D DAVIDSON, MG, PHOS, CMP, LIPID, URIC #### [facility] [address] [address] [address] Sarmad Patino Sodium [Moles/Vol] 140 mmol/L Normal 136-145 [facility] Comment on above: Performed By: #### D DAVIDSON, MG, PHOS, CMP, LIPID, URIC #### [facility] [address] [address] [address] Sarmad Patino Urea nitrogen [Mass/Vol] 19.0 mg/dL Critically high 7.0-18.0 [facility] Comment on above: Performed By: #### D DAVIDSON, MG, PHOS, CMP, LIPID, URIC #### [facility] [address] [address] [address] Sarmad Patino Urea nitrogen/Creatinine [Mass ratio] 21.8 mg/mg Normal [facility] Comment on above: Performed By: #### D DAVIDSON, MG, PHOS, CMP, LIPID, URIC #### [facility] [address] [address] [address] Sarmad Patino URIC ACID SERUMon 12-05-2021 Urate [Mass/Vol] 5.2 mg/dL Normal 2.6-6.0 [facility] Comment on above: Performed By: #### D DAVIDSON, MG, PHOS, CMP, LIPID, URIC #### [facility] [address] [address] [address] Sarmad SALAZAROLIMU, WHOLE BLOODon EVEROLIMUS 7.0 ng/mL Normal 3.0-8.0 [facility] Comment on above: Result Comment: Perf ormed by LC-MS/MS technology. Performed By: #### D DAVIDSON, MG, PHOS, CMP, LIPID, URIC #### [facility] [address] [place] [address] Dr. Sarmad Patnio FK506 (TACROLIMUS) WHOLE BLO ODon 11-10-2021 Tacrolimus (FK506), Blood 6.4 ng/mL Normal 2.0-20.0 [facility] Comment on above: Result Comment: Trou gh (immediately following transplant) 15.0 . Trough (steady state, 2 weeks or more after transplant): 3.0 - 8.0 . Performed by LC-MS/MS technology. Performed By: #### D DAVIDSON, MG, PHOS, CMP, LIPID, URIC #### [facility] [address] [place] [address] Dr. Sarmad Patino BK VIRUS PCR QUANTon 022 BKV DNA QUANT PCR PLASMA Negative Normal Negative The [facility] Comment on above: Result Comment: No B K DNA detected. . The linear range of the assay is 22 - 100,000,000 IU/mL. Performed By: #### U JUVE, LIPID, MG, CMP, DBIL, PHOS #### [facility] [address] [place] [address] Dr. Sarmad Patino Log10 BKV DNA Plasma Normal The [facility] Comment on above: Performed By: #### U JUVE, LIPID, MG, CMP, DBIL, PHOS #### [facility] [address] [place] [address] Dr. Sarmad Patino BILIRUBIN CONJUGATED (DIRECT )on 11-07-2021 BILI, CONJUGATED 0.1 mg/dL Normal 0.0-0.2 [facility] Comment on above: Performed By: #### D DAVIDSON, MG, PHOS, CMP, LIPID, URIC #### [facility] [address] [place] [address] Dr. Sarmad Patino CBC AUTO DIFFon 11-07-2021 BASO # 0.0 103/ul Normal 0.0-0.1 [facility] Comment on above: Performed By: #### D DAVIDSON, MG, PHOS, CMP, LIPID, URIC #### [facility] [address] [place] [address] Dr. Sarmad Patino Basophils/100 WBC (Bld) 0.3 % Normal 0.2-2.0 The [facility] Comment on above: Performed By: #### D DAVIDSON, MG, PHOS, CMP, LIPID, URIC #### [facility] [address] [place] [address] Dr. Sarmad Patino EO # 0.1 103/ul Normal 0.0-0.7 [facility] Comment on above: Performed By: #### D DAVIDSON, MG, PHOS, CMP, LIPID, URIC #### [facility] [address] [place] [address] Dr. Sarmad Patino Eosinophils/100 WBC (Bld) 2.1 % Normal 0.9-7.0 The [facility] Comment on above: Performed By: #### D DAVIDSON, MG, PHOS, CMP, LIPID, URIC #### [facility] [address] [place] [address] Dr. Sarmad Patino Erythrocyte distribution width (RBC) [Ratio] 13.5 % Normal 11.0-15.0 The [facility] Comment on above: Performed By: #### D DAVIDSON, MG, PHOS, CMP, LIPID, URIC #### [facility] [address] [place] [address] Dr. Sarmad Patino Hematocrit (Bld) [Volume fraction] 46.7 % Normal 36.0-48.0 [facility] Comment on above: Performed By: #### D DAVIDSON, MG, PHOS, CMP, LIPID, URIC #### [facility] [address] [place] [address] Dr. Sarmad Patino Hemoglobin (Bld) [Mass/Vol] 15.1 g/dL Normal 12.0-16.0 The [facility] Comment on above: Performed By: #### D DAVIDSON, MG, PHOS, CMP, LIPID, URIC #### [facility] [address] [place] [address] Dr. Sarmad Patino IG # 0.03 10e3/ul Normal 0.00-0.03 The [facility] Comment on above: Performed By: #### D DAVIDSON, MG, PHOS, CMP, LIPID, URIC #### [facility] [address] [place] [address] Dr. Sarmad Patino IG % 0.5 % Normal 0.0-0.5 The [facility] Comment on above: Performed By: #### D DAVIDSON, MG, PHOS, CMP, LIPID, URIC #### [facility] [address] [place] [address] Dr. Sarmad Patino LYMPH # 1.3 103/ul Normal 1.2-3.8 The [facility] Comment on above: Performed By: #### D DAVIDSON, MG, PHOS, CMP, LIPID, URIC #### [facility] [address] [address] [address] Sarmad Patino Lymphocytes/100 WBC (Bld) 19.9 % Critically low 20.5-60.0 [facility] Comment on above: Performed By: #### D DAVIDSON, MG, PHOS, CMP, LIPID, URIC #### [facility] [address] [address] [address] Sarmad Patino MANUAL DIFF REQ NO Normal [facility] Comment on above: Performed By: #### D DAVIDSON, MG, PHOS, CMP, LIPID, URIC #### [facility] [address] [address] [address] Sarmad Paitno MCH (RBC) [Entitic mass] 28.6 pg Normal 26.7-34.0 The [facility] Comment on above: Performed By: #### D DAVIDSON, MG, PHOS, CMP, LIPID, URIC #### [facility] [address] [place] [address] Dr. Sarmad Patino MCHC (RBC) [Mass/Vol] 32.3 g/dL Normal 29.9-35.2 The [facility] Comment on above: Performed By: #### D DAVIDSON, MG, PHOS, CMP, LIPID, URIC #### [facility] [address] [place] [address] Dr. Sarmad Patino MCV (RBC) [Entitic vol] 88.4 fL Normal 81.0-99.0 The [facility] Comment on above: Performed By: #### D DAVIDSON, MG, PHOS, CMP, LIPID, URIC #### [facility] [address] [place] [address] Dr. Sarmad Patino MONO # 0.8 103/ul Normal 0.3-0.8 The [facility] Comment on above: Performed By: #### D DAVIDSON, MG, PHOS, CMP, LIPID, URIC #### [facility] [address] [place] [address] Dr. Sarmad Patino Monocytes/100 WBC (Bld) 12.9 % Critically high 1.7-12.0 The [facility] Comment on above: Performed By: #### D DAVIDSON, MG, PHOS, CMP, LIPID, URIC #### [facility] [address] [address] [address] Sarmad Patino NEUT # 4.0 103/ul Normal 1.4-6.5 [facility] Comment on above: Performed By: #### D DAVIDSON, MG, PHOS, CMP, LIPID, URIC #### [facility] [address] [address] [address] Sarmad Patino Neutrophils/100 WBC (Bld) 64.3 % Normal 43.0-75.0 [facility] Comment on above: Performed By: #### D DAVIDSON, MG, PHOS, CMP, LIPID, URIC #### [facility] [address] [place] [address] Dr. Sarmad Patino Platelet mean volume (Bld) [Entitic vol] 11.3 fL Normal 9.5-13.5 [facility] Comment on above: Performed By: #### D DAVIDSON, MG, PHOS, CMP, LIPID, URIC #### [facility] [address] [place] [address] Dr. Sarmad Patino PLT 241 103/ul Normal 150-450 [facility] Comment on above: Performed By: #### D DAVIDSON, MG, PHOS, CMP, LIPID, URIC #### [facility] [address] [place] [address] Dr. Sarmad Patino RBC 5.28 106/ul Normal 4.20-5.40 [facility] Comment on above: Performed By: #### D DAVIDSON, MG, PHOS, CMP, LIPID, URIC #### [facility] [address] [place] [address] Dr. Sarmad Patino WBC 6.3 103/ul Normal 4.0-11.0 [facility] Comment on above: Performed By: #### D DAVIDSON, MG, PHOS, CMP, LIPID, URIC #### [facility] [address] [place] [address] Dr. Sarmad Patino GLYCOHEMOGLOBIN A1Con 2021 ADA RECOMMENDATION SEE BELOW Normal [facility] Comment on above: Result Comment: ADA RECOMMENDED LIMIT 4.0 - 6.0 ADA THERAPEUTIC TARGET < 7.0 ACTION SUGGESTED > 7.0 Performed By: #### D DAVIDSON, MG, PHOS, CMP, LIPID, URIC #### [facility] [address] [address] [address] Sarmad Patino Glucose [Mass/Vol] 120 mg/dL Normal [facility] Comment on above: Performed By: #### D DAVIDSON, MG, PHOS, CMP, LIPID, URIC #### [facility] [address] [address] [address] Sarmad Patino HbA1c (Bld) [Mass fraction] 5.8 % Normal 4.5-6.2 [facility] Comment on above: Performed By: #### D DAVIDSON, MG, PHOS, CMP, LIPID, URIC #### [facility] [address] [place] [address] Dr. Sarmad Patino LIPID PROFILEon 11-07-2021 CHOL-HDL RATIO NORM SEE BELOW Normal [facility] Comment on above: Result Comment: 3.3 - 4.4 LOW RISK 4.4 - 7.1 AVERAGE RISK 7.1 - 11.0 MODERATE RISK >11.0 HIGH RISK Performed By: #### D DAVISDON, MG, PHOS, CMP, LIPID, URIC #### [facility] [address] [place] [address] Dr. Sarmad Patino Cholesterol [Mass/Vol] 157 mg/dL Normal <=200 [facility] Comment on above: Performed By: #### D DAVIDSON, MG, PHOS, CMP, LIPID, URIC #### [facility] [address] [place] [address] Dr. Sarmad Patino Cholesterol in HDL [Mass/Vol] 48 mg/dL Normal 40-60 [facility] Comment on above: Performed By: #### D DAVIDSON, MG, PHOS, CMP, LIPID, URIC #### [facility] [address] [place] [address] Dr. Sarmad Patino Cholesterol in LDL [Mass/Vol] 89.6 mg/dL Normal [facility] Comment on above: Performed By: #### D DAVIDSON, MG, PHOS, CMP, LIPID, URIC #### [facility] [address] [address] [address] Sarmad Patino Cholesterol.total/Cho lesterol in HDL [Mass ratio] 3.3 {ratio} Normal [facility] Comment on above: Performed By: #### D DAVIDSON, MG, PHOS, CMP, LIPID, URIC #### [facility] [address] [address] [address] Sarmad Patino HDL NORMAL > or = 60 mg/dl - LO W CARDIOVASCULAR RISK <40 mg/dl - HIGH CARDIOVASCULAR RISK Normal [facility] Comment on above: Performed By: #### D DAVIDSON, MG, PHOS, CMP, LIPID, URIC #### [facility] [address] [address] [address] Sarmad Patino LDL CALC NORMAL SEE BELOW Normal [facility] Comment on above: Result Comment: <100 mg/dl OPTIMAL 100 - 129 mg/dl NEAR OR ABOVE OPTIMAL 130 - 159 mg/dl BORDERLINE HIGH 160 - 189 mg/dl HIGH >190 mg/dl VERY HIGH Performed By: #### D DAVIDSON, MG, PHOS, CMP, LIPID, URIC #### [facility] [address] [address] [address] Sarmad Patino Triglyceride [Mass/Vol] 97 mg/dL Normal <=150 [facility] Comment on above: Performed By: #### D DAVIDSON, MG, PHOS, CMP, LIPID, URIC #### [facility] [address] [address] [address] Sarmad Patino VLDL CALC 19.4 mg/dL Normal [facility] Comment on above: Performed By: #### D DAVIDSON, MG, PHOS, CMP, LIPID, URIC #### [facility] [address] [address] [address] Sarmad Patino MAGNESIUMon 11-07-2021 Magnesium [Mass/Vol] 1.9 mg/dL Normal 1.8-2.4 [facility] Comment on above: Performed By: #### D DAVIDSON, MG, PHOS, CMP, LIPID, URIC #### [facility] [address] [address] [address] Sarmad Patino PHOSPHORUSon 11-07-2021 Phosphate [Mass/Vol] 3.4 mg/dL Normal 2.6-4.7 [facility] Comment on above: Performed By: #### D DAVIDSON, MG, PHOS, CMP, LIPID, URIC #### [facility] [address] [place] [address] Dr. Sarmad Patino PROF 14(COMP METB)on 022 Albumin [Mass/Vol] 3.6 g/dL Normal 3.4-5.0 [facility] Comment on above: Performed By: #### D DAVIDSON, MG, PHOS, CMP, LIPID, URIC #### [facility] [address] [place] [address] Dr. Sarmad Patino Albumin/Globulin [Mass ratio] 0.9 {ratio} Normal [facility] Comment on above: Performed By: #### D DAVIDSON, MG, PHOS, CMP, LIPID, URIC #### [facility] [address] [place] [address] Dr. Sarmad Patino ALP [Catalytic activity/Vol] 158 U/L Critically high 46-116 [facility] Comment on above: Performed By: #### D DAVIDSON, MG, PHOS, CMP, LIPID, URIC #### [facility] [address] [place] [address] Dr. Sarmad Patino ALT [Catalytic activity/Vol] 23 U/L Normal 14-59 [facility] Comment on above: Performed By: #### D DAVIDSON, MG, PHOS, CMP, LIPID, URIC #### [facility] [address] [place] [address] Dr. Sarmad Patino Anion gap [Moles/Vol] 14.8 mmol/L Normal [facility] Comment on above: Performed By: #### D DAVIDSON, MG, PHOS, CMP, LIPID, URIC #### [facility] [address] [place] [address] Dr. Sarmad Patino AST [Catalytic activity/Vol] 18 U/L Normal 15-37 [facility] Comment on above: Performed By: #### D DAVIDSON, MG, PHOS, CMP, LIPID, URIC #### [facility] [address] [place] [address] Dr. Sarmad Patino Bilirubin [Mass/Vol] 0.4 mg/dL Normal 0.2-1.0 [facility] Comment on above: Performed By: #### D DAVIDSON, MG, PHOS, CMP, LIPID, URIC #### [facility] [address] [place] [address] Dr. Sarmad Patino Calcium [Mass/Vol] 9.3 mg/dL Normal 8.5-10.1 [facility] Comment on above: Performed By: #### D DAVIDSON, MG, PHOS, CMP, LIPID, URIC #### [facility] [address] [address] [address] Sarmad Patino Chloride [Moles/Vol] 105 mmol/L Normal 98-107 [facility] Comment on above: Performed By: #### D DAVIDSON, MG, PHOS, CMP, LIPID, URIC #### [facility] [address] [place] [address] Dr. Sarmad Patino CO2 [Moles/Vol] 26.1 mmol/L Normal 21.0-32.0 [facility] Comment on above: Performed By: #### D DAVIDSON, MG, PHOS, CMP, LIPID, URIC #### [facility] [address] [place] [address] Dr. Sarmad Patino Creatinine [Mass/Vol] 0.84 mg/dL Normal 0.55-1.02 [facility] Comment on above: Performed By: #### D DAVIDSON, MG, PHOS, CMP, LIPID, URIC #### [facility] [address] [place] [address] Dr. Sarmad Patino EGFR-AF [facility] LUCIAN >60 Normal >=60 [facility] Comment on above: Performed By: #### D DAVIDSON, MG, PHOS, CMP, LIPID, URIC #### [facility] [address] [place] [address] Dr. Sarmad Patino EGFR-NON AF [facility]CIAN >60 Normal >=60 [facility] Comment on above: Performed By: #### D DAVIDSON, MG, PHOS, CMP, LIPID, URIC #### [facility] [address] [place] [address] Dr. Sarmad Patino Globulin (S) [Mass/Vol] 3.8 g/dL Normal [facility] Comment on above: Performed By: #### D DAVIDSON, MG, PHOS, CMP, LIPID, URIC #### [facility] [address] [address] [address] Sarmad Patino Glucose [Mass/Vol] 97 mg/dL Normal 74-106 [facility] Comment on above: Performed By: #### D DAVIDSON, MG, PHOS, CMP, LIPID, URIC #### [facility] [address] [place] [address] Dr. Sarmad Patino Potassium [Moles/Vol] 3.9 mmol/L Normal 3.5-5.1 [facility] Comment on above: Performed By: #### D DAVIDSON, MG, PHOS, CMP, LIPID, URIC #### [facility] [address] [place] [address] Dr. Sarmad Patino Protein [Mass/Vol] 7.4 g/dL Normal 6.4-8.2 [facility] Comment on above: Performed By: #### D DAVIDSON, MG, PHOS, CMP, LIPID, URIC #### [facility] [address] [address] [address] Sarmad Patino Sodium [Moles/Vol] 142 mmol/L Normal 136-145 [facility] Comment on above: Performed By: #### D DAVIDSON, MG, PHOS, CMP, LIPID, URIC #### [facility] [address] [place] [address] Dr. Sarmad Patino Urea nitrogen [Mass/Vol] 21.0 mg/dL Critically high 7.0-18.0 [facility] Comment on above: Performed By: #### D DAVIDSON, MG, PHOS, CMP, LIPID, URIC #### [facility] [address] [place] [address] Dr. Sarmad Patino Urea nitrogen/Creatinine [Mass ratio] 25.0 mg/mg Normal [facility] Comment on above: Performed By: #### D DAVIDSON, MG, PHOS, CMP, LIPID, URIC #### [facility] [address] [place] [address] Dr. Sarmad Patino URIC ACID SERUMon 11-07-2021 Urate [Mass/Vol] 5.1 mg/dL Normal 2.6-6.0 [facility] Comment on above: Performed By: #### D DAVIDSON, MG, PHOS, CMP, LIPID, URIC #### [facility] [address] [address] [address] Sarmad Patino BOX TEST SENT OUTon 10-16-19 22 SENT TO REF LAB 10/15/2021 Normal [facility] Comment on above: Performed By: #### D DAVIDSON, MG, PHOS, CMP, LIPID, URIC #### [facility] [address] [address] [address] Sarmad Patino EVEROLIMU, WHOLE BLOODon EVEROLIMUS 6.7 ng/mL Normal 3.0-8.0 [facility] Comment on above: Result Comment: Perf ormed by LC-MS/MS technology. Performed By: #### D DAVIDSON, MG, PHOS, CMP, LIPID, URIC #### [facility] [address] [address] [address] Sarmad Patino FK506 (TACROLIMUS) WHOLE BLO ODon 10-10-2021 Tacrolimus (FK506), Blood 5.9 ng/mL Normal 2.0-20.0 [facility] Comment on above: Result Comment: Trou gh (immediately following transplant) 15.0 . Trough (steady state, 2 weeks or more after transplant): 3.0 - 8.0 . Performed by LC-MS/MS technology. Performed By: #### D DAVIDSON, MG, PHOS, CMP, LIPID, URIC #### [facility] [address] [place] [address] Dr. Sarmad Patino BILIRUBIN CONJUGATED (DIRECT )on 10-08-2021 BILI, CONJUGATED 0.1 mg/dL Normal 0.0-0.2 [facility] Comment on above: Performed By: #### U JUVE, LIPID, MG, CMP, DBIL, PHOS #### [facility] [address] [address] [address] Sarmad Patino CBC AUTO DIFFon 10-08-2021 BASO # 0.0 103/ul Normal 0.0-0.1 [facility] Comment on above: Performed By: #### D DAVIDSON, MG, PHOS, CMP, LIPID, URIC #### [facility] [address] [place] [address] Dr. Sarmad Patino Basophils/100 WBC (Bld) 0.1 % Critically low 0.2-2.0 [facility] Comment on above: Performed By: #### D DAVIDSON, MG, PHOS, CMP, LIPID, URIC #### [facility] [address] [place] [address] Dr. Sarmad Patino EO # 0.1 103/ul Normal 0.0-0.7 [facility] Comment on above: Performed By: #### D DAVIDSON, MG, PHOS, CMP, LIPID, URIC #### [facility] [address] [place] [address] Dr. Sarmad Patino Eosinophils/100 WBC (Bld) 1.4 % Normal 0.9-7.0 [facility] Comment on above: Performed By: #### D DAVIDSON, MG, PHOS, CMP, LIPID, URIC #### [facility] [address] [place] [address] Dr. Sarmad Patino Erythrocyte distribution width (RBC) [Ratio] 13.6 % Normal 11.0-15.0 [facility] Comment on above: Performed By: #### D DAVIDSON, MG, PHOS, CMP, LIPID, URIC #### [facility] [address] [place] [address] Dr. Sarmad Patino Hematocrit (Bld) [Volume fraction] 47.5 % Normal 36.0-48.0 [facility] Comment on above: Performed By: #### D DAVIDSON, MG, PHOS, CMP, LIPID, URIC #### [facility] [address] [place] [address] Dr. Sarmad Patino Hemoglobin (Bld) [Mass/Vol] 15.7 g/dL Normal 12.0-16.0 [facility] Comment on above: Performed By: #### D DAVIDSON, MG, PHOS, CMP, LIPID, URIC #### [facility] [address] [place] [address] Dr. Sarmad Patino IG # 0.04 10e3/ul Critically high 0.00-0.03 [facility] Comment on above: Performed By: #### D DAVIDSON, MG, PHOS, CMP, LIPID, URIC #### [facility] [address] [address] [address] Sarmad Patino IG % 0.5 % Normal 0.0-0.5 [facility] Comment on above: Performed By: #### D DAVIDSON, MG, PHOS, CMP, LIPID, URIC #### [facility] [address] [place] [address] Dr. Sarmad aPtino LYMPH # 1.3 103/ul Normal 1.2-3.8 [facility] Comment on above: Performed By: #### D DAVIDSON, MG, PHOS, CMP, LIPID, URIC #### [facility] [address] [place] [address] Dr. Sramad Patino Lymphocytes/100 WBC (Bld) 15.4 % Critically low 20.5-60.0 [facility] Comment on above: Performed By: #### D DAVIDSON, MG, PHOS, CMP, LIPID, URIC #### [facility] [address] [address] [address] Sarmad Patino MANUAL DIFF REQ NO Normal [facility] Comment on above: Performed By: #### D DAVIDSON, MG, PHOS, CMP, LIPID, URIC #### [facility] [address] [place] [address] Dr. Sarmad Patino MCH (RBC) [Entitic mass] 29.1 pg Normal 26.7-34.0 [facility] Comment on above: Performed By: #### D DAVIDSON, MG, PHOS, CMP, LIPID, URIC #### [facility] [address] [address] [address] Sarmad Patino MCHC (RBC) [Mass/Vol] 33.1 g/dL Normal 29.9-35.2 [facility] Comment on above: Performed By: #### D DAVIDSON, MG, PHOS, CMP, LIPID, URIC #### [facility] [address] [place] [address] Dr. Sarmad Patino MCV (RBC) [Entitic vol] 88.0 fL Normal 81.0-99.0 [facility] Comment on above: Performed By: #### D DAVIDSON, MG, PHOS, CMP, LIPID, URIC #### [facility] [address] [place] [address] Dr. Sarmad Patino MONO # 0.9 103/ul Critically high 0.3-0.8 [facility] Comment on above: Performed By: #### D DAVIDSON, MG, PHOS, CMP, LIPID, URIC #### [facility] [address] [place] [address] Dr. Sarmad Patino Monocytes/100 WBC (Bld) 10.2 % Normal 1.7-12.0 [facility] Comment on above: Performed By: #### D DAVIDSON, MG, PHOS, CMP, LIPID, URIC #### [facility] [address] [place] [address] Dr. Sarmad Patino NEUT # 6.1 103/ul Normal 1.4-6.5 [facility] Comment on above: Performed By: #### D DAVIDSON, MG, PHOS, CMP, LIPID, URIC #### [facility] [address] [place] [address] Dr. Sarmad Patino Neutrophils/100 WBC (Bld) 72.4 % Normal 43.0-75.0 [facility] Comment on above: Performed By: #### D DAVIDSON, MG, PHOS, CMP, LIPID, URIC #### [facility] [address] [place] [address] Dr. Sarmad Patino Platelet mean volume (Bld) [Entitic vol] 11.1 fL Normal 9.5-13.5 [facility] Comment on above: Performed By: #### D DAVIDSON, MG, PHOS, CMP, LIPID, URIC #### [facility] [address] [place] [address] Dr. Sarmad Patino PLT 213 103/ul Normal 150-450 [facility] Comment on above: Performed By: #### D DAVIDSON, MG, PHOS, CMP, LIPID, URIC #### [facility] [address] [place] [address] Dr. Sarmad Patino RBC 5.40 106/ul Normal 4.20-5.40 [facility] Comment on above: Performed By: #### D DAVIDSON, MG, PHOS, CMP, LIPID, URIC #### [facility] [address] [address] [address] Sarmad Patino WBC 8.4 103/ul Normal 4.0-11.0 [facility] Comment on above: Performed By: #### D DAVIDSON, MG, PHOS, CMP, LIPID, URIC #### [facility] [address] [address] [address] Sarmad Patino LIPID PROFILEon 10-08-2021 CHOL-HDL RATIO NORM SEE BELOW Normal [facility] Comment on above: Result Comment: 3.3 - 4.4 LOW RISK 4.4 - 7.1 AVERAGE RISK 7.1 - 11.0 MODERATE RISK >11.0 HIGH RISK Performed By: #### D DAVIDSON, MG, PHOS, CMP, LIPID, URIC #### [facility] [address] [address] [address] Sarmad Patino Cholesterol [Mass/Vol] 155 mg/dL Normal <=200 [facility] Comment on above: Performed By: #### D DAVIDSON, MG, PHOS, CMP, LIPID, URIC #### [facility] [address] [address] [address] Sarmad Patino Cholesterol in HDL [Mass/Vol] 49 mg/dL Normal 40-60 [facility] Comment on above: Performed By: #### D DAVIDSON, MG, PHOS, CMP, LIPID, URIC #### [facility] [address] [address] [address] Sarmad Patino Cholesterol in LDL [Mass/Vol] 73.8 mg/dL Normal [facility] Comment on above: Performed By: #### D DAVIDSON, MG, PHOS, CMP, LIPID, URIC #### [facility] [address] [address] [address] Sarmad Patino Cholesterol.total/Cho lesterol in HDL [Mass ratio] 3.2 {ratio} Normal [facility] Comment on above: Performed By: #### D DAVIDSON, MG, PHOS, CMP, LIPID, URIC #### [facility] [address] [address] [address] Sarmad Patino HDL NORMAL > or = 60 mg/dl - LO W CARDIOVASCULAR RISK <40 mg/dl - HIGH CARDIOVASCULAR RISK Normal [facility] Comment on above: Performed By: #### D DAVIDSON, MG, PHOS, CMP, LIPID, URIC #### [facility] [address] [address] [address] Sarmad Patino LDL CALC NORMAL SEE BELOW Normal [facility] Comment on above: Result Comment: <100 mg/dl OPTIMAL 100 - 129 mg/dl NEAR OR ABOVE OPTIMAL 130 - 159 mg/dl BORDERLINE HIGH 160 - 189 mg/dl HIGH >190 mg/dl VERY HIGH Performed By: #### D DAVIDSON, MG, PHOS, CMP, LIPID, URIC #### [facility] [address] [address] [address] Sarmad Patino Triglyceride [Mass/Vol] 161 mg/dL Critically high <=150 [facility] Comment on above: Performed By: #### D DAVIDSON, MG, PHOS, CMP, LIPID, URIC #### [facility] [address] [address] [address] Sarmad Patino VLDL CALC 32.2 mg/dL Normal [facility] Comment on above: Performed By: #### D DAVIDSON, MG, PHOS, CMP, LIPID, URIC #### [facility] [address] [address] [address] Sarmad Patino MAGNESIUMon 10-08-2021 Magnesium [Mass/Vol] 1.6 mg/dL Critically low 1.8-2.4 [facility] Comment on above: Performed By: #### U JUVE, LIPID, MG, CMP, DBIL, PHOS #### [facility] [address] [address] [address] Sarmad Patino PHOSPHORUSon 10-08-2021 Phosphate [Mass/Vol] 3.5 mg/dL Normal 2.6-4.7 [facility] Comment on above: Performed By: #### U JUVE, LIPID, MG, CMP, DBIL, PHOS #### [facility] [address] [place] [address] Dr. Sarmad Patino PROF 14(COMP METB)on 022 Albumin [Mass/Vol] 3.6 g/dL Normal 3.4-5.0 [facility] Comment on above: Performed By: #### D DAVIDSON, MG, PHOS, CMP, LIPID, URIC #### [facility] [address] [place] [address] Dr. Sarmad Patino Albumin/Globulin [Mass ratio] 0.9 {ratio} Normal [facility] Comment on above: Performed By: #### D DAVIDSON, MG, PHOS, CMP, LIPID, URIC #### [facility] [address] [place] [address] Dr. Sarmad Patino ALP [Catalytic activity/Vol] 150 U/L Critically high 46-116 [facility] Comment on above: Performed By: #### D DAVIDSON, MG, PHOS, CMP, LIPID, URIC #### [facility] [address] [place] [address] Dr. Sarmad Patino ALT [Catalytic activity/Vol] 21 U/L Normal 14-59 [facility] Comment on above: Performed By: #### D DAVIDSON, MG, PHOS, CMP, LIPID, URIC #### [facility] [address] [place] [address] Dr. Sarmad Patino Anion gap [Moles/Vol] 14.0 mmol/L Normal [facility] Comment on above: Performed By: #### D DAVIDSON, MG, PHOS, CMP, LIPID, URIC #### [facility] Laboratory [address] [place] [address] Dr. Sarmad Patino AST [Catalytic activity/Vol] 13 U/L Critically low 15-37 [facility] Comment on above: Performed By: #### D DAVIDSON, MG, PHOS, CMP, LIPID, URIC #### [facility] Laboratory [address] [place] [address] Dr. Sarmad Patino Bilirubin [Mass/Vol] 0.5 mg/dL Normal 0.2-1.0 [facility] Comment on above: Performed By: #### D DAVIDSON, MG, PHOS, CMP, LIPID, URIC #### [facility] Laboratory [address] [address] [address] Sarmad Patino Calcium [Mass/Vol] 9.8 mg/dL Normal 8.5-10.1 [facility] Comment on above: Performed By: #### D DAVIDSON, MG, PHOS, CMP, LIPID, URIC #### [facility] Laboratory [address] [place] [address] Dr. Sarmad Patino Chloride [Moles/Vol] 105 mmol/L Normal 98-107 [facility] Comment on above: Performed By: #### D DAVIDSON, MG, PHOS, CMP, LIPID, URIC #### [facility] Laboratory [address] [place] [address] Dr. Sarmad Patino CO2 [Moles/Vol] 25.9 mmol/L Normal 21.0-32.0 [facility] Comment on above: Performed By: #### D DAVIDSON, MG, PHOS, CMP, LIPID, URIC #### [facility] Laboratory [address] [place] [address] Dr. Sarmad Patino Creatinine [Mass/Vol] 0.81 mg/dL Normal 0.55-1.02 [facility] Comment on above: Performed By: #### D DAVIDSON, MG, PHOS, CMP, LIPID, URIC #### [facility] Laboratory [address] [place] [address] Dr. Sarmad Patino EGFR-AF [facility] >60 Normal >=60 [facility] Comment on above: Performed By: #### D DAVIDSON, MG, PHOS, CMP, LIPID, URIC #### [facility] Laboratory [address] [place] [address] Dr. Sarmad Patino EGFR-NON AF [facility] >60 Normal >=60 [facility] Comment on above: Performed By: #### D DAVIDSON, MG, PHOS, CMP, LIPID, URIC #### [facility] Laboratory [address] [place] [address] Dr. Sarmad Patino Globulin (S) [Mass/Vol] 3.8 g/dL Normal [facility] Comment on above: Performed By: #### D DAVIDSON, MG, PHOS, CMP, LIPID, URIC #### [facility] Laboratory [address] [address] [address] Sarmad Patino Glucose [Mass/Vol] 101 mg/dL Normal 74-106 [facility] Comment on above: Performed By: #### D DAVIDSON, MG, PHOS, CMP, LIPID, URIC #### [facility] Laboratory [address] [place] [address] Dr. Sarmad Patino Potassium [Moles/Vol] 3.9 mmol/L Normal 3.5-5.1 [facility] Comment on above: Performed By: #### D DAVIDSON, MG, PHOS, CMP, LIPID, URIC #### [facility] Laboratory [address] [place] [address] Dr. Sarmad Patino Protein [Mass/Vol] 7.4 g/dL Normal 6.4-8.2 [facility] Comment on above: Performed By: #### D DAVIDSON, MG, PHOS, CMP, LIPID, URIC #### [facility] Laboratory [address] [place] [address] Dr. Sarmad Patino Sodium [Moles/Vol] 141 mmol/L Normal 136-145 [facility] Comment on above: Performed By: #### D DAVIDSON, MG, PHOS, CMP, LIPID, URIC #### [facility] Laboratory [address] [place] [address] Dr. Sarmad Patino Urea nitrogen [Mass/Vol] 18.0 mg/dL Normal 7.0-18.0 [facility] Comment on above: Performed By: #### D DVAIDSON, MG, PHOS, CMP, LIPID, URIC #### [facility] Laboratory [address] [place] [address] Dr. Sarmad Patino Urea nitrogen/Creatinine [Mass ratio] 22.2 mg/mg Normal [facility] Comment on above: Performed By: #### D DAVIDSON, MG, PHOS, CMP, LIPID, URIC #### [facility] Laboratory [address] [place] [address] Dr. Sarmad Patino URIC ACID SERUMon 10-08-2021 Urate [Mass/Vol] 4.7 mg/dL Normal 2.6-6.0 [facility] Comment on above: Performed By: #### D DAVIDSON, MG, PHOS, CMP, LIPID, URIC #### [facility] Laboratory [address] [place] [address] Dr. Sarmad SALAZAROLIMU, WHOLE BLOODon EVEROLIMUS 8.0 ng/mL Normal 3.0-8.0 [facility] Comment on above: Result Comment: Perf ormed by LC-MS/MS technology. Performed By: #### U JUVE, LIPID, MG, CMP, DBIL, PHOS #### [facility] Laboratory [address] [address] [address] Sarmad Patino FK506 (TACROLIMUS) WHOLE BLO ODon 09-14-2021 Tacrolimus (FK506), Blood 9.3 ng/mL Normal 2.0-20.0 [facility] Comment on above: Result Comment: Trou gh (immediately following transplant) 15.0 . Trough (steady state, 2 weeks or more after transplant): 3.0 - 8.0 . Performed by LC-MS/MS technology. Performed By: #### U JUVE, LIPID, MG, CMP, DBIL, PHOS #### [facility] Laboratory [address] [place] [address] Dr. Sarmad Patino BK VIRUS PCR QUANTon 022 BKV DNA QUANT PCR PLASMA Negative Normal Negative The [facility] Comment on above: Result Comment: No B K DNA detected. . The linear range of the assay is 22 - 100,000,000 IU/mL. Performed By: #### D DAVIDSON, MG, PHOS, CMP, LIPID, URIC #### [facility] Laboratory [address] [place] [address] Dr. Sarmad Patino Log10 BKV DNA Plasma Normal [facility] Comment on above: Performed By: #### D DAVIDSON, MG, PHOS, CMP, LIPID, URIC #### [facility] Laboratory [address] [place] [address] Dr. Sarmad Patino BILIRUBIN CONJUGATED (DIRECT )on 09-10-2021 BILI, CONJUGATED 0.1 mg/dL Normal 0.0-0.2 [facility] Comment on above: Performed By: #### D DAVIDSON, MG, PHOS, CMP, LIPID, URIC #### [facility] Laboratory [address] [address] [address] Sarmad Patino CBC AUTO DIFFon 09-10-2021 BASO # 0.0 103/ul Normal 0.0-0.1 [facility] Comment on above: Performed By: #### D DAVIDSON, MG, PHOS, CMP, LIPID, URIC #### [facility] Laboratory [address] [place] [address] Dr. Sarmad Patino Basophils/100 WBC (Bld) 0.1 % Critically low 0.2-2.0 [facility] Comment on above: Performed By: #### D DAVIDSON, MG, PHOS, CMP, LIPID, URIC #### [facility] Laboratory [address] [place] [address] Dr. Sarmad Patino EO # 0.2 103/ul Normal 0.0-0.7 [facility] Comment on above: Performed By: #### D DAVIDSON, MG, PHOS, CMP, LIPID, URIC #### [facility] Laboratory [address] [place] [address] Dr. Sarmad Patino Eosinophils/100 WBC (Bld) 2.3 % Normal 0.9-7.0 [facility] Comment on above: Performed By: #### D DAVIDSON, MG, PHOS, CMP, LIPID, URIC #### [facility] Laboratory [address] [place] [address] Dr. Sarmad Patino Erythrocyte distribution width (RBC) [Ratio] 13.6 % Normal 11.0-15.0 [facility] Comment on above: Performed By: #### D DAVIDSON, MG, PHOS, CMP, LIPID, URIC #### [facility] Laboratory [address] [place] [address] Dr. Sarmad Patino Hematocrit (Bld) [Volume fraction] 45.1 % Normal 36.0-48.0 [facility] Comment on above: Performed By: #### D DAVIDSON, MG, PHOS, CMP, LIPID, URIC #### [facility] Laboratory [address] [place] [address] Dr. Sarmad Patino Hemoglobin (Bld) [Mass/Vol] 14.7 g/dL Normal 12.0-16.0 [facility] Comment on above: Performed By: #### D DAVIDSON, MG, PHOS, CMP, LIPID, URIC #### [facility] Laboratory [address] [address] [address] Sarmad Patino IG # 0.03 10e3/ul Normal 0.00-0.03 [facility] Comment on above: Performed By: #### D DAVIDSON, MG, PHOS, CMP, LIPID, URIC #### [facility] Laboratory [address] [place] [address] Dr. Sarmad Patino IG % 0.4 % Normal 0.0-0.5 [facility] Comment on above: Performed By: #### D DAVIDSON, MG, PHOS, CMP, LIPID, URIC #### [facility] Laboratory [address] [place] [address] Dr. Sarmad Patino LYMPH # 1.3 103/ul Normal 1.2-3.8 [facility] Comment on above: Performed By: #### D DAVIDSON, MG, PHOS, CMP, LIPID, URIC #### [facility] Laboratory [address] [place] [address] Dr. Sarmad Patino Lymphocytes/100 WBC (Bld) 18.9 % Critically low 20.5-60.0 [facility] Comment on above: Performed By: #### D DAVIDSON, MG, PHOS, CMP, LIPID, URIC #### [facility] Laboratory [address] [place] [address] Dr. Sarmad Patino MANUAL DIFF REQ NO Normal [facility] Comment on above: Performed By: #### D DAVIDSON, MG, PHOS, CMP, LIPID, URIC #### [facility] Laboratory [address] [place] [address] Dr. Sarmad Patino MCH (RBC) [Entitic mass] 29.0 pg Normal 26.7-34.0 [facility] Comment on above: Performed By: #### D DAVIDSON, MG, PHOS, CMP, LIPID, URIC #### [facility] Laboratory [address] [place] [address] Dr. Sarmad Patino MCHC (RBC) [Mass/Vol] 32.6 g/dL Normal 29.9-35.2 [facility] Comment on above: Performed By: #### D DAVIDSON, MG, PHOS, CMP, LIPID, URIC #### [facility] Laboratory [address] [place] [address] Dr. Sarmad Patino MCV (RBC) [Entitic vol] 89.0 fL Normal 81.0-99.0 [facility] Comment on above: Performed By: #### D DAVIDSON, MG, PHOS, CMP, LIPID, URIC #### [facility] Laboratory [address] [place] [address] Dr. Sarmad Patino MONO # 0.8 103/ul Normal 0.3-0.8 [facility] Comment on above: Performed By: #### D DAVIDSON, MG, PHOS, CMP, LIPID, URIC #### [facility] Laboratory [address] [place] [address] Dr. Sarmad Patino Monocytes/100 WBC (Bld) 11.9 % Normal 1.7-12.0 [facility] Comment on above: Performed By: #### D DAVIDSON, MG, PHOS, CMP, LIPID, URIC #### [facility] Laboratory [address] [place] [address] Dr. Sarmad Patino NEUT # 4.6 103/ul Normal 1.4-6.5 [facility] Comment on above: Performed By: #### D DAVIDSON, MG, PHOS, CMP, LIPID, URIC #### [facility] Laboratory [address] [place] [address] Dr. Sarmad Patino Neutrophils/100 WBC (Bld) 66.4 % Normal 43.0-75.0 [facility] Comment on above: Performed By: #### D DAVIDSON, MG, PHOS, CMP, LIPID, URIC #### [facility] Laboratory [address] [place] [address] Dr. Sarmad Patino Platelet mean volume (Bld) [Entitic vol] 10.6 fL Normal 9.5-13.5 [facility] Comment on above: Performed By: #### D DAVIDSON, MG, PHOS, CMP, LIPID, URIC #### [facility] Laboratory [address] [place] [address] Dr. Sarmad Patino PLT 233 103/ul Normal 150-450 [facility] Comment on above: Performed By: #### D DAVIDSON, MG, PHOS, CMP, LIPID, URIC #### [facility] Laboratory [address] [address] [address] Sarmad Patino RBC 5.07 106/ul Normal 4.20-5.40 [facility] Comment on above: Performed By: #### D DAVIDSON, MG, PHOS, CMP, LIPID, URIC #### [facility] Laboratory [address] [address] [address] Sarmad Patino WBC 6.9 103/ul Normal 4.0-11.0 [facility] Comment on above: Performed By: #### D DAVIDSON, MG, PHOS, CMP, LIPID, URIC #### [facility] Laboratory [address] [address] [address] Sarmad Patino GLYCOHEMOGLOBIN A1Con 2021 ADA RECOMMENDATION SEE BELOW Normal [facility] Comment on above: Result Comment: ADA RECOMMENDED LIMIT 4.0 - 6.0 ADA THERAPEUTIC TARGET < 7.0 ACTION SUGGESTED > 7.0 Performed By: #### D DAVIDSON, MG, PHOS, CMP, LIPID, URIC #### [facility] Laboratory [address] [address] [address] Sarmad Patino Glucose [Mass/Vol] 120 mg/dL Normal [facility] Comment on above: Performed By: #### D DAVIDSON, MG, PHOS, CMP, LIPID, URIC #### [facility] Laboratory [address] [address] [address] Sarmad Patino HbA1c (Bld) [Mass fraction] 5.8 % Normal 4.5-6.2 [facility] Comment on above: Performed By: #### D DAVIDSON, MG, PHOS, CMP, LIPID, URIC #### [facility] Laboratory [address] [address] [address] Sarmad Patino LIPID PROFILEon 09-10-2021 CHOL-HDL RATIO NORM SEE BELOW Normal [facility] Comment on above: Result Comment: 3.3 - 4.4 LOW RISK 4.4 - 7.1 AVERAGE RISK 7.1 - 11.0 MODERATE RISK >11.0 HIGH RISK Performed By: #### D DAVIDSON, MG, PHOS, CMP, LIPID, URIC #### [facility] Laboratory [address] [address] [address] Sarmad Patino Cholesterol [Mass/Vol] 150 mg/dL Normal <=200 [facility] Comment on above: Performed By: #### D DAVIDSON, MG, PHOS, CMP, LIPID, URIC #### [facility] Laboratory [address] [address] [address] Sarmad Patino Cholesterol in HDL [Mass/Vol] 47 mg/dL Normal 40-60 [facility] Comment on above: Performed By: #### D DAVIDSON, MG, PHOS, CMP, LIPID, URIC #### [facility] Laboratory [address] [address] [address] Sarmad Patino Cholesterol in LDL [Mass/Vol] 78.4 mg/dL Normal [facility] Comment on above: Performed By: #### D DAVIDSON, MG, PHOS, CMP, LIPID, URIC #### [facility] Laboratory [address] [address] [address] Sarmad Patino Cholesterol.total/Cho lesterol in HDL [Mass ratio] 3.2 {ratio} Normal [facility] Comment on above: Performed By: #### D DAVIDSON, MG, PHOS, CMP, LIPID, URIC #### [facility] Laboratory [address] [address] [address] Sarmad Patino HDL NORMAL > or = 60 mg/dl - LO W CARDIOVASCULAR RISK <40 mg/dl - HIGH CARDIOVASCULAR RISK Normal [facility] Comment on above: Performed By: #### D DAVIDSON, MG, PHOS, CMP, LIPID, URIC #### [facility] Laboratory [address] [address] [address] Sarmad Patino LDL CALC NORMAL SEE BELOW Normal [facility] Comment on above: Result Comment: <100 mg/dl OPTIMAL 100 - 129 mg/dl NEAR OR ABOVE OPTIMAL 130 - 159 mg/dl BORDERLINE HIGH 160 - 189 mg/dl HIGH >190 mg/dl VERY HIGH Performed By: #### D DAVIDSON, MG, PHOS, CMP, LIPID, URIC #### [facility] Laboratory [address] [address] [address] Sarmad Patino Triglyceride [Mass/Vol] 123 mg/dL Normal <=150 [facility] Comment on above: Performed By: #### D DAVIDSON, MG, PHOS, CMP, LIPID, URIC #### [facility] Laboratory [address] [place] [address] Dr. Sarmad Patino VLDL CALC 24.6 mg/dL Normal [facility] Comment on above: Performed By: #### D DAVIDSON, MG, PHOS, CMP, LIPID, URIC #### [facility] Laboratory [address] [place] [address] Dr. Sarmad Patino MAGNESIUMon 09-10-2021 Magnesium [Mass/Vol] 1.5 mg/dL Critically low 1.8-2.4 [facility] Comment on above: Performed By: #### D DAVIDSON, MG, PHOS, CMP, LIPID, URIC #### [facility] Laboratory [address] [place] [address] Dr. Sarmad Patino PHOSPHORUSon 09-10-2021 Phosphate [Mass/Vol] 3.8 mg/dL Normal 2.6-4.7 [facility] Comment on above: Performed By: #### D DAVIDSON, MG, PHOS, CMP, LIPID, URIC #### [facility] Laboratory [address] [place] [address] Dr. Sarmad Patino PROF 14(COMP METB)on 022 Albumin [Mass/Vol] 3.4 g/dL Normal 3.4-5.0 [facility] Comment on above: Performed By: #### D DAVIDSON, MG, PHOS, CMP, LIPID, URIC #### [facility] Laboratory [address] [place] [address] Dr. Sarmad Patino Albumin/Globulin [Mass ratio] 0.9 {ratio} Normal [facility] Comment on above: Performed By: #### D DAVIDSON, MG, PHOS, CMP, LIPID, URIC #### [facility] Laboratory [address] [place] [address] Dr. Sarmad Patino ALP [Catalytic activity/Vol] 143 U/L Critically high 46-116 [facility] Comment on above: Performed By: #### D DAVIDSON, MG, PHOS, CMP, LIPID, URIC #### [facility] Laboratory [address] [place], [place] [id number] Dr. Sarmad Patino ALT [Catalytic activity/Vol] 19 U/L Normal 14-59 [facility] Comment on above: Performed By: #### D DAVIDSON, MG, PHOS, CMP, LIPID, URIC #### [facility] Laboratory [address] [place] [address] Dr. Sarmad Patino Anion gap [Moles/Vol] 13.4 mmol/L Normal [facility] Comment on above: Performed By: #### D DAVIDSON, MG, PHOS, CMP, LIPID, URIC #### [facility] Laboratory [address] [place] [address] Dr. Sarmad Patino AST [Catalytic activity/Vol] 24 U/L Normal 15-37 [facility] Comment on above: Performed By: #### D DAVIDSON, MG, PHOS, CMP, LIPID, URIC #### [facility] Laboratory [address] [place] [address] Dr. Sarmad Patino Bilirubin [Mass/Vol] 0.4 mg/dL Normal 0.2-1.0 [facility] Comment on above: Performed By: #### D DAVIDSON, MG, PHOS, CMP, LIPID, URIC #### [facility] Laboratory [address] [address] [address] Sarmad Patino Calcium [Mass/Vol] 9.3 mg/dL Normal 8.5-10.1 [facility] Comment on above: Performed By: #### D DAVIDSON, MG, PHOS, CMP, LIPID, URIC #### [facility] Laboratory [address] [place] [address] Dr. Sarmad Patino Chloride [Moles/Vol] 106 mmol/L Normal 98-107 [facility] Comment on above: Performed By: #### D DAVIDSON, MG, PHOS, CMP, LIPID, URIC #### [facility] Laboratory [address] [place] [address] Dr. Sarmad Patino CO2 [Moles/Vol] 25.5 mmol/L Normal 21.0-32.0 [facility] Comment on above: Performed By: #### D DAVIDSON, MG, PHOS, CMP, LIPID, URIC #### [facility] Laboratory [address] [address] [address] Sarmad Patino Creatinine [Mass/Vol] 0.85 mg/dL Normal 0.55-1.02 [facility] Comment on above: Performed By: #### D DAVIDSON, MG, PHOS, CMP, LIPID, URIC #### [facility] Laboratory [address] [address] [address] Sarmad Patino EGFR-AF [facility]CI[facility] >60 Normal >=60 [facility] Comment on above: Performed By: #### D DAVIDSON, MG, PHOS, CMP, LIPID, URIC #### [facility] Laboratory [address] [address] [address] Sarmad Patino EGFR-NON AF [facility] >60 Normal >=60 [facility] Comment on above: Performed By: #### D DAVIDSON, MG, PHOS, CMP, LIPID, URIC #### [facility] Laboratory [address] [place] [address] Dr. Sarmad Patino Globulin (S) [Mass/Vol] 3.8 g/dL Normal [facility] Comment on above: Performed By: #### D DAVIDSON, MG, PHOS, CMP, LIPID, URIC #### [facility] [address] [address] [address] Sarmad Patino Glucose [Mass/Vol] 100 mg/dL Normal 74-106 [facility] Comment on above: Performed By: #### D DAVIDSON, MG, PHOS, CMP, LIPID, URIC #### [facility] Laboratory [address] [address] [address] Sarmad Patino Potassium [Moles/Vol] 3.9 mmol/L Normal 3.5-5.1 [facility] Comment on above: Performed By: #### D DAVIDSON, MG, PHOS, CMP, LIPID, URIC #### [facility] Laboratory [address] [address] [address] Sarmad Patino Protein [Mass/Vol] 7.2 g/dL Normal 6.4-8.2 [facility] Comment on above: Performed By: #### D DAVIDSON, MG, PHOS, CMP, LIPID, URIC #### [facility] Laboratory [address] [place] [address] Dr. Sarmad Patino Sodium [Moles/Vol] 141 mmol/L Normal 136-145 [facility] Comment on above: Performed By: #### D DAVIDSON, MG, PHOS, CMP, LIPID, URIC #### [facility] [address] [address] [address] Sarmad Patino Urea nitrogen [Mass/Vol] 16.0 mg/dL Normal 7.0-18.0 [facility] Comment on above: Performed By: #### D DAVIDSON, MG, PHOS, CMP, LIPID, URIC #### [facility] [address] [address] [address] Sarmad Patino Urea nitrogen/Creatinine [Mass ratio] 18.8 mg/mg Normal [facility] Comment on above: Performed By: #### D DAVIDSON, MG, PHOS, CMP, LIPID, URIC #### [facility] [address] [address] [address] Sarmad Patino URIC ACID SERUMon 09-10-2021 Urate [Mass/Vol] 4.8 mg/dL Normal 2.6-6.0 [facility] Comment on above: Performed By: #### D DAVIDSON, MG, PHOS, CMP, LIPID, URIC #### [facility] [address] [address] [address] Sarmad Patino Urinalysis - AUTOMATEDon Appearance (U) cloudy [employer] Other Bilirubin Ql (U) Negative [employer] Other Color (U) pale yellow [employer] Other Glucose Ql (U) Negative [place] Other Hemoglobin Ql (U) moderate [employer] Other Ketones Ql (U) Negative [place] Other Leukocyte esterase Test strip Ql (U) moderate [employer] Other Nitrite Ql (U) Negative [place] Other pH (U) 7.0 [pH] [employer] Other Protein Ql (U) Negative [place] Other Specific gravity (U) [Rel density] 1.010 [employer] Other Urobilinogen (U) [Mass/Vol] 0.2 mg/dL [employer] Other Urinalysis - AUTOMATED [employer] Other Urine Cultureon 08-14-2021 Urine Culture 100,000 [employer] Other Urine Culture <16 Susceptible [place] Other Urine Culture >16 Resistant [employer] Other Urine Culture <4 Susceptible [place] Other Urine Culture <2 Susceptible [place] Other Urine Culture <1 Susceptible [place] Other Urine Culture <0.5 Susceptible [place] Other Urine Culture <32 Susceptible [place] Other Urine Culture <2/38 Susceptible [place] Other Bacteria identified Cx Nom (U) Reason for Exam Dysuria Urine ORGANISM: Klebsiella pneumoniae (O:KLEPNE) [place] Count 100,000 Aerobic SHYLA Charge (NUC86) ---- [...] RESISTANT TO ALL B-LACTAM DRUGS. PERFORMED BY: [facility] [address] [place] [address] PATHOLOGIST ALLERGIST IMMUNOLOGIST LOVELY COLE M.D. Normal [facility] Comment on above: Performed By: #### C UU #### [facility] [address] *URINE CULTUREon 12-31-2017 Bacteria identified in Urine by Culture Clinical Report: (D) Specimen: URINE Collected: 12/31/2017 13:40 Status: Final Last Updated: 01/04/2018 12:38 ISO (Final) Diphtheroids >100,000 Cfu/Ml 2 Morphologies ISO (Final) Aerococcus urinae 50,000 - 100,000 Cfu/mL Result changed by RFISCHB on 01/04/2018 12:38. The previous result was: ISO (Prelim) Normal [facility] Comment on above: Performed By: #### 4 1000, 97400, 89242, 20470, 71829, 69191 ####[facility] [place] [address], [facility] CBC W/DIFFon 12-25-2017 ABS BASOPHILS 0.0 10*3/uL Normal 0.0-0.2 [facility] Comment on above: Performed By: #### 5 0103 ####[facility] [place] [address], [facility] ABS IMM GRANS 0.0 10*3/uL Normal 0.0-0.2 [facility] Comment on above: Performed By: #### 5 0103 ####[facility] [facility] [place] [address], [facility] ABS NEUTROPHILS 5.0 10*3/uL Normal 1.6-7.6 [facility] Comment on above: Performed By: #### 5 0103 ####[facility] [place] [address], [facility] Basophils Auto #/vol (Bld) 0.1 % Normal 0.0-1.0 [facility] Comment on above: Performed By: #### 5 0103 ####[facility] [facility] [place] [address], [facility] Eosinophils Auto #/vol (Bld) 0.1 10*3/uL Normal 0.0-0.5 [facility] Comment on above: Performed By: #### 5 0103 ####[facility] [facility].[address] Eosinophils/100 WBC Auto (Bld) 1.6 % Normal 0.0-6.0 [facility] Comment on above: Performed By: #### 5 0103 ####[facility] Erythrocyte distribution width Auto Ratio (RBC) 14.6 % Normal 11.5-15.0 [facility] Comment on above: Performed By: #### 5 3 ####[facility] [facility].[address] Hematocrit Auto Volume Fraction (Bld) 44.9 % Normal 36.0-45.0 [facility] Comment on above: Performed By: #### 3 ####[facility] Hemoglobin mass conc (Bld) 14.9 g/dL Normal 12.0-15.0 [facility] Comment on above: Performed By: #### 5 0103 ####[facility] IMMATURE GRANS 0.4 % Normal 0.0-1.0 [facility] Comment on above: Performed By: #### 5 0103 ####[facility] Lymphocytes Auto #/vol (Bld) 1.0 10*3/uL Low 1.2-4.0 [facility] Comment on above: Performed By: #### 5 0103 ####[address] Lymphocytes/100 WBC Auto (Bld) 14.9 % Low 20.0-45.0 [facility] Comment on above: Performed By: #### 5 0103 ####[facility] MCH Auto Entitic mass (RBC) 28.8 pg Normal 27.0-33.0 [facility] Comment on above: Performed By: #### 5 0103 ####[facility] MCHC Auto mass conc (RBC) 33.2 g/dL Normal 32.0-35.0 [facility] Comment on above: Performed By: #### 5 3 ####[facility] MCV Auto Entitic volume (RBC) 86.7 fL Normal 82.0-98.0 [facility] Comment on above: Performed By: #### 5 3 ####[facility] [place] [address] Monocytes Auto #/vol (Bld) 0.7 10*3/uL Normal 0.1-1.0 [facility] Comment on above: Performed By: #### 5 0103 ####[facility] [place] [address], [facility] MONOS 10.6 % Normal 5.0-12.0 [facility] Comment on above: Performed By: #### 5 0103 ####[facility] [facility] [place] [address], [facility] Neutrophils/100 WBC Auto (Bld) 72.4 % High 40.0-72.0 [facility] Comment on above: Performed By: #### 5 3 ####[facility] [facility].[address] Nucleated RBC/100 WBC Ratio (Bld) 0 % Normal 0-0 [facility] Comment on above: Performed By: #### 5 3 ####[facility] [facility].[address] PLAT CNT 203 10*3/uL Normal 150-400 The [facility] Comment on above: Performed By: #### 5 3 ####[facility] [facility].[address] RBC Auto #/vol (Bld) 5.18 10*6/uL High 3.80-5.00 [facility] Comment on above: Performed By: #### 5 3 ####[facility] [facility] [place] [address], [facility] WBC Auto #/vol (Bld) 6.90 10*3/uL Normal 4.00-10.60 [facility] Comment on above: Performed By: #### 5 102 ####[facility] [facility].[address] COMP METABOLIC PANELon 12-25 Albumin mass conc 4.3 g/dL Normal 3.5-5.7 [facility] Comment on above: Performed By: #### 4 1000, 18643, 84736, 38758, 60347, 76759 ####[facility] [place] [address], [facility] ALKALINE PHOSPH 118 IU/L High 34-104 The [facility] Comment on above: Performed By: #### 4 1000, 02849, 82307, 26455, 79967, 70067 ####[facility] [place] [address], [facility] ALT enzyme act/vol 11 U/L Normal 7-52 [facility] Comment on above: Performed By: #### 4 1000, 00562, 13960, 09071, 38816, 98240 ####[facility] AST enzyme act/vol 17 U/L Normal 13-39 [facility] Comment on above: Performed By: #### 4 1000, 29091, 37499, 27246, 24699, 72569 ####[facility] [place] [address], [facility] Bilirubin mass conc 0.4 mg/dL Normal 0.3-1.0 The [facility] Comment on above: Performed By: #### 4 1000, 65950, 63022, 65236, 47989, 68854 ####[facility] [place] [address], [facility] Calcium mass conc 9.8 mg/dL Normal 8.6-10.3 The [facility] Comment on above: Performed By: #### 4 1000, 52847, 91383, 61662, 94706, 61016 ####[facility] [place] [address], [facility] Chloride molar conc 104 mmol/L Normal 98-107 The [facility] Comment on above: Performed By: #### 4 1000, 03214, 77148, 33707, 85965, 92531 ####[facility] [place] [address], [facility] CO2 molar conc 27 mmol/L Normal 21-31 [facility] Comment on above: Performed By: #### 4 1000, 77689, 26941, 96515, 49076, 28735 ####[facility] [place] [address], [facility] Creatinine mass conc 0.76 mg/dL Normal 0.60-1.20 [facility] Comment on above: Performed By: #### 4 1000, 91189, 59328, 83848, 96311, 99141 ####[facility] [place] [address], [facility] GFR/1.73 sq M predicted among blacks MDRD vol rate/area (S/P/Bld) mL/min/{1.73_m2} Normal >60 The [facility] Comment on above: Performed By: #### 4 1000, 31299, 96340, 87736, 87711, 70116 ####[facility] [place] [address], [facility] GFR/1.73 sq M predicted among non-blacks MDRD vol rate/area (S/P/Bld) mL/min/{1.73_m2} Normal >60 The [facility] Comment on above: Performed By: #### 4 1000, 57303, 23900, 82933, 27199, 62212 ####[facility] [place] [address], [place] Glucose mass conc 94 mg/dL Normal 70-100 [facility] Comment on above: Performed By: #### 4 1000, 53701, 52085, 46262, 76028, 38325 ####[facility] Potassium molar conc 3.9 mmol/L Normal 3.5-5.1 [facility] Comment on above: Performed By: #### 4 1000, 61958, 54557, 04470, 23121, 85015 ####[facility] Protein mass conc 7.2 g/dL Normal 6.0-8.3 The [facility] Comment on above: Performed By: #### 4 1000, 09301, 03392, 39757, 36694, 29494 ####[facility] [facility].[address] Sodium molar conc 140 mmol/L Normal 136-145 The [facility] Comment on above: Performed By: #### 4 1000, 02378, 55618, 18984, 48186, 51552 ####[facility] Urea nitrogen mass conc 15 mg/dL Normal 7-25 [facility] Comment on above: Performed By: #### 4 1000, 11942, 29850, 42388, 41566, 20130 ####[facility] DIRECT BILIon 12-25-2017 Bilirubin.direct mass conc 0.1 mg/dL Normal 0.0-0.2 [facility] Comment on above: Performed By: #### 4 1000, 81468, 81811, 98239, 00913, 14269 ####[facility] EVEROLIMUS [id number] 8 EVEROLIMUS 4.7 ng/mL Normal [facility] Comment on above: Result Comment: [...] the transplantcenter.Test developed and characteristics determined by [facility]. See Compliance Statement B: OrdrIt/CSPerformed by [facility],[address] [place] [id number] pdq.[facility], Leonid Antonio MD - Lab. Director LIPID PROFILEon 12-25-2017 Cholesterol in HDL mass conc 51 mg/dL Normal 23-92 [facility] Comment on above: Result Comment: Slig ht variation in normal range could be due to gender and/or age.HDL CHOLESTEROL REFERENCE RANGE:20 years and older Cardiovascular Risk> or =60 mg/dL [id number] TO 59 mg/dL Low Risk<40 mg/dL High Risk Performed By: #### 4 5506, 62447, 43762, 47543, 52138, 50070 ####[facility] [place] [address], [facility] Cholesterol in LDL mass conc 58 mg/dL Normal 0-130 [facility] Comment on above: Result Comment: LDL IS A CALCULATIONLDL IS ONLY VALID IF THE TRIG IS LESS THAN 400. Performed By: #### 4 5506, 72549, 04816, 39247, 54663, 77064 ####[facility] [place] [address], [facility] Cholesterol mass conc 122 mg/dL Normal 120-200 [facility] Comment on above: Result Comment: CHOL ESTEROL REFERENCE RANGE:20 YEARS AND OLDER CARDIOVASCULAR RISKLess than 200 mg/dl Low Owhm568 to 239 mg/dl Borderline Jbto581 mg/dl and greater High Risk Performed By: #### 4 5506, 42326, 79686, 07759, 25694, 68875 ####[facility] [place] [address], [facility] Cholesterol.total/Cho lesterol in HDL mass ratio 2.4 {ratio} Normal .0-4.5 [facility] Comment on above: Performed By: #### 4 5506, 69725, 07971, 90256, 07754, 35060 ####[facility] NON-HDL CHOLESTEROL 71 mg/dL Normal The [facility] Comment on above: Performed By: #### 4 5506, 33603, 88481, 75074, 78726, 44442 ####[facility] Triglyceride mass conc 65 mg/dL Normal 40-149 [facility] Comment on above: Result Comment: TRIG LYCERIDE REFERENCE RANGE:20 YEARS AND OLDER CARDIOVASCULAR RISKLESS THAN 150 mg/dl LOW [id number] TO 199 mg/dl BORDERLINE [id number] mg/dl AND GREATER HIGH RISK Performed By: #### 4 5506, 59835, 22555, 50445, 50394, 44298 ####[facility] [place] [address], [facility] VLDL CHOL 13 mg/dL Normal 0-40 [facility] Comment on above: Performed By: #### 4 5506, 77622, 63367, 74363, 94559, 19328 ####[facility] [place] [address], [facility] MAGNESIUM BLOODon 12-25-2017 Magnesium mass conc 1.8 mg/dL Low 1.9-2.7 The [facility] Comment on above: Performed By: #### 4 1000, 45219, 39904, 18256, 01403, 00615 ####[facility] [facility] [place] [address], [facility] PHOSPHORUS BLOODon 8 Phosphate mass conc 3.4 mg/dL Normal 2.5-5.0 The [facility] Comment on above: Performed By: #### 4 5506, 02176, 16536, 99615, 43963, 97108 ####[facility] [facility] [place] [address], [facility] TACROLIMUSon 12-25-2017 Tacrolimus mass conc (Bld) 6.4 ng/mL Normal 5.0-20.0 [facility] Comment on above: Result Comment: The [employer] Tacrolimus assay is a delayed one-step immunoassayfor the quantitative determination of tacrolimus in human whole bloodusing the chemiluminescent microparticle immunoassay (CMIA) technologywith flexible assay protocols, referred to as Chemiflex. Performed By: #### 4 1000, 12881, 89162, 21026, 46908, 87427 ####[facility] [facility] [place] [address], [facility] URIC ACID BLOODon 12-25-2017 Urate mass conc 4.7 mg/dL Normal 2.3-6.6 The [facility] Comment on above: Performed By: #### 4 5506, 24535, 76673, 89508, 08500, 01695 ####[facility] [facility] [place] [address], [facility] CBC W/DIFFon 10-30-2017 ABS BASOPHILS 0.0 10*3/uL Normal 0.0-0.2 [facility] Comment on above: Performed By: #### 4 6447, 89486 ####[facility] [facility] [place] [address], [facility] ABS IMM GRANS 0.0 10*3/uL Normal 0.0-0.2 [facility] Comment on above: Performed By: #### 4 6708, 09977 ####[facility] [place] [address], [facility] ABS NEUTROPHILS 4.9 10*3/uL Normal 1.6-7.6 [facility] Comment on above: Performed By: #### 4 6541, 72117 ####[facility] [place] [address], [facility] Basophils Auto #/vol (Bld) 0.1 % Normal 0.0-1.0 [facility] Comment on above: Performed By: #### 4 9782, 80581 ####[facility] [place] [address], [facility] Eosinophils Auto #/vol (Bld) 0.1 10*3/uL Normal 0.0-0.5 [facility] Comment on above: Performed By: #### 4 9236, 30048 ####[facility] [facility].[address] Eosinophils/100 WBC Auto (Bld) 1.4 % Normal 0.0-6.0 [facility] Comment on above: Performed By: #### 4 5234, 85873 ####[facility] [facility].[address] Erythrocyte distribution width Auto Ratio (RBC) 14.6 % Normal 11.5-15.0 [facility] Comment on above: Performed By: #### 8 6067, 78077 ####[facility] [facility].[address] Hematocrit Auto Volume Fraction (Bld) 46.8 % High 36.0-45.0 [facility] Comment on above: Performed By: #### 9 4028, 22495 ####[facility] Hemoglobin mass conc (Bld) 15.1 g/dL High 12.0-15.0 [facility] Comment on above: Performed By: #### 4 5731, 99834 ####[facility] IMMATURE GRANS 0.4 % Normal 0.0-1.0 The Nina barber [facility] Comment on above: Performed By: #### 4 7704, 66293 ####[facility] Lymphocytes Auto #/vol (Bld) 1.2 10*3/uL Normal 1.2-4.0 [facility] Comment on above: Performed By: #### 4 0612, 10351 ####[place] [address] [address] Lymphocytes/100 WBC Auto (Bld) 16.6 % Low 20.0-45.0 [facility] Comment on above: Performed By: #### 8 5257, 81210 ####[facility] [place] [address] MCH Auto Entitic mass (RBC) 29.0 pg Normal 27.0-33.0 [facility] Comment on above: Performed By: #### 4 6009, 36480 ####[facility] MCHC Auto mass conc (RBC) 32.3 g/dL Normal 32.0-35.0 [facility] Comment on above: Performed By: #### 4 4240, 52999 ####[facility] MCV Auto Entitic volume (RBC) 89.8 fL Normal 82.0-98.0 [facility] Comment on above: Performed By: #### 2 5494, 13069 ####[facility] [facility] [place] [address], [facility] Monocytes Auto #/vol (Bld) 0.8 10*3/uL Normal 0.1-1.0 [facility] Comment on above: Performed By: #### 4 5347, 22725 ####[facility] [facility] [place] [address], [facility] MONOS 11.9 % Normal 5.0-12.0 [facility] Comment on above: Performed By: #### 4 6447, 25222 ####[facility] [facility].[address] Neutrophils/100 WBC Auto (Bld) 69.6 % Normal 40.0-72.0 [facility] Comment on above: Performed By: #### 4 8747, 94249 ####[facility] [facility].[address] Nucleated RBC/100 WBC Ratio (Bld) 0 % Normal 0-0 [facility] Comment on above: Performed By: #### 4 6247, 44593 ####[facility] [facility].[address] PLAT CNT 200 10*3/uL Normal 150-400 The [facility] Comment on above: Performed By: #### 4 8447, 21499 ####[facility] [facility].[address] RBC Auto #/vol (Bld) 5.21 10*6/uL High 3.80-5.00 [facility] Comment on above: Performed By: #### 4 6193, 36725 ####[facility] [facility].[address] WBC Auto #/vol (Bld) 7.04 10*3/uL Normal 4.00-10.60 [facility] Comment on above: Performed By: #### 4 8528, 97586 ####[facility] [facility].[address] COMP METABOLIC PANELon 10-30 Albumin mass conc 4.1 g/dL Normal 3.5-5.7 The [facility] Comment on above: Performed By: #### 4 0247, 04781 ####[facility] [facility].[address] ALKALINE PHOSPH 114 IU/L High 34-104 The [facility] Comment on above: Performed By: #### 4 9247, 06377 ####[place] [address] [facility].[address] ALT enzyme act/vol 16 U/L Normal 7-52 The [facility] Comment on above: Performed By: #### 4 3247, 74519 ####[address] AST enzyme act/vol 18 U/L Normal 13-39 The [facility] Comment on above: Performed By: #### 5 4756, 16728 ####[place] [address] [facility] [place] [address], [facility] Bilirubin mass conc 0.4 mg/dL Normal 0.3-1.0 The [facility] Comment on above: Performed By: #### 4 7847, 23910 ####[facility] [facility] [place] [address], [facility] Calcium mass conc 9.7 mg/dL Normal 8.6-10.3 The [facility] Comment on above: Performed By: #### 3 7674, 70280 ####[address] [place] [address], [facility] Chloride molar conc 105 mmol/L Normal 98-107 The [facility] Comment on above: Performed By: #### 5 9295, 39864 ####[facility] [place] [address], [facility] CO2 molar conc 28 mmol/L Normal 21-31 [facility] Comment on above: Performed By: #### 5 6833, 91301 ####[facility] [place] [address], [facility] Creatinine mass conc 0.82 mg/dL Normal 0.60-1.20 [facility] Comment on above: Performed By: #### 7 7831, 14350 ####[facility] [place] [address], [facility] GFR/1.73 sq M predicted among blacks MDRD vol rate/area (S/P/Bld) mL/min/{1.73_m2} Normal >60 The [facility] Comment on above: Performed By: #### 8 9626, 54377 ####[facility] [place] [address], [facility] GFR/1.73 sq M predicted among non-blacks MDRD vol rate/area (S/P/Bld) mL/min/{1.73_m2} Normal >60 The [facility] Comment on above: Performed By: #### 2 7147, 65691 ####[facility] [place] [address], [facility] Glucose mass conc 90 mg/dL Normal 70-100 [facility] Comment on above: Performed By: #### 7 6924, 12662 ####[facility] [place] [address], [place] Potassium molar conc 4.1 mmol/L Normal 3.5-5.1 [facility] Comment on above: Performed By: #### 4 4678, 88867 ####[facility] [place] [address], [place] Protein mass conc 6.9 g/dL Normal 6.0-8.3 [facility] Comment on above: Performed By: #### 4 6447, 11535 ####[facility] [facility].[address] Sodium molar conc 138 mmol/L Normal 136-145 The [facility] Comment on above: Performed By: #### 4 6447, 04950 ####[facility] [facility].[address] Urea nitrogen mass conc 16 mg/dL Normal 7-25 [facility] Comment on above: Performed By: #### 4 6447, 55987 ####[facility] [facility].[address] DIRECT BILIon 10-30-2017 Bilirubin.direct mass conc 0.0 mg/dL Normal 0.0-0.2 [facility] Comment on above: Performed By: #### 4 5506, 91943, 44757, 05216, 22963, 14840 ####[facility] [facility].[address] EVEROLIMUS [id number] 8 EVEROLIMUS 6.0 ng/mL Normal [facility] Comment on above: Result Comment: [...] the transplantcenter.Test developed and characteristics determined by [facility]. See Compliance Statement B: OrdrIt/CSPerformed by [facility],[address], [facility] [place] [address] mhr.[facility], Leonid Antonio MD - Lab. Director LIPID PROFILEon 10-30-2017 Cholesterol in HDL mass conc 50 mg/dL Normal 23-92 [facility] Comment on above: Result Comment: Slig ht variation in normal range could be due to gender and/or age.HDL CHOLESTEROL REFERENCE RANGE:20 years and older Cardiovascular Risk> or =60 mg/dL Accglihbx82 TO 59 mg/dL Low Risk<40 mg/dL High Risk Performed By: #### 4 5506, 52012, 13237, 17152, 30304, 09761 ####[facility] [place] [address], [place] Cholesterol in LDL mass conc 85 mg/dL Normal 0-130 [facility] Comment on above: Result Comment: LDL IS A CALCULATIONLDL IS ONLY VALID IF THE TRIG IS LESS THAN 400. Performed By: #### 4 5506, 67222, 30910, 15632, 52923, 12341 ####[facility] [place] [address], [place] Cholesterol mass conc 152 mg/dL Normal 120-200 [facility] Comment on above: Result Comment: CHOL ESTEROL REFERENCE RANGE:20 YEARS AND OLDER CARDIOVASCULAR RISKLess than 200 mg/dl Low Psjk392 to 239 mg/dl Borderline Igts378 mg/dl and greater High Risk Performed By: #### 4 5506, 30454, 44137, 65468, 86427, 05501 ####[facility] [place] [address], [place] Cholesterol.total/Cho lesterol in HDL mass ratio 3.0 {ratio} Normal .0-4.5 [facility] Comment on above: Performed By: #### 4 5506, 23702, 05341, 82796, 40753, 78607 ####[facility] [facility] NON-HDL CHOLESTEROL 102 mg/dL Normal [facility] Comment on above: Performed By: #### 4 5506, 31560, 79392, 48396, 63258, 36207 ####[facility] [facility].[address] Triglyceride mass conc 87 mg/dL Normal 40-149 [facility] Comment on above: Result Comment: TRIG LYCERIDE REFERENCE RANGE:20 YEARS AND OLDER CARDIOVASCULAR RISKLESS THAN 150 mg/dl LOW [id number] TO 199 mg/dl BORDERLINE YURU781 mg/dl AND GREATER HIGH RISK Performed By: #### 4 5506, 32644, 54986, 18922, 22143, 80451 ####[facility]3000 [facility].[address] VLDL CHOL 17 mg/dL Normal 0-40 [facility] Comment on above: Performed By: #### 4 5506, 28552, 41682, 89945, 17870, 32640 ####[facility] [facility].[address] MAGNESIUM BLOODon 10-30-2017 Magnesium mass conc 1.9 mg/dL Normal 1.9-2.7 [facility] Comment on above: Performed By: #### 4 5506, 34077, 87347, 88143, 23346, 57250 ####[facility] [place] [address], [facility] PHOSPHORUS BLOODon 8 Phosphate mass conc 3.7 mg/dL Normal 2.5-5.0 [facility] Comment on above: Performed By: #### 4 5506, 01519, 48295, 76161, 69276, 58849 ####[facility] TACROLIMUSon 10-30-2017 Tacrolimus mass conc (Bld) 7.1 ng/mL Normal 5.0-20.0 [facility] Comment on above: Result Comment: The [employer] Tacrolimus assay is a delayed one-step immunoassayfor the quantitative determination of tacrolimus in human whole bloodusing the chemiluminescent microparticle immunoassay (CMIA) technologywith flexible assay protocols, referred to as Chemiflex. Performed By: #### 9 9914 ####[facility] URIC ACID BLOODon 10-30-2017 Urate mass conc 4.6 mg/dL Normal 2.3-6.6 [facility] Comment on above: Performed By: #### 4 6447, 71078 ####[place] [address] [address] CBC W/DIFFon 10-23-2017 ABS BASOPHILS 0.0 10*3/uL Normal 0.0-0.2 [facility] Comment on above: Performed By: #### 4 9081, 19577 ####[facility] ABS IMM GRANS 0.1 10*3/uL Normal 0.0-0.2 [facility] Comment on above: Performed By: #### 4 3155, 32698 ####[facility] ABS NEUTROPHILS 5.8 10*3/uL Normal 1.6-7.6 [facility] Comment on above: Performed By: #### 4 4200, 33913 ####[place] [address] [address] Basophils Auto #/vol (Bld) 0.2 % Normal 0.0-1.0 [facility] Comment on above: Performed By: #### 4 5004, 38875 ####[facility]3000 [facility].[address] Eosinophils Auto #/vol (Bld) 0.1 10*3/uL Normal 0.0-0.5 [facility] Comment on above: Performed By: #### 4 6146, 83460 ####[facility]3000 [facility].[address] Eosinophils/100 WBC Auto (Bld) 0.7 % Normal 0.0-6.0 [facility] Comment on above: Performed By: #### 4 5400, 39472 ####[place] [address] [facility].[address] Erythrocyte distribution width Auto Ratio (RBC) 14.6 % Normal 11.5-15.0 [facility] Comment on above: Performed By: #### 5 4550, 80726 ####[address] Hematocrit Auto Volume Fraction (Bld) 44.2 % Normal 36.0-45.0 [facility] Comment on above: Performed By: #### 2 1607, 57000 ####[place] [address] [facility].[address] Hemoglobin mass conc (Bld) 14.2 g/dL Normal 12.0-15.0 [facility] Comment on above: Performed By: #### 0 0254, 94636 ####[place] [address] [facility].[address] IMMATURE GRANS 1.4 % High 0.0-1.0 [facility] Comment on above: Performed By: #### 6 7139, 61253 ####[address] Lymphocytes Auto #/vol (Bld) 2.1 10*3/uL Normal 1.2-4.0 [facility] Comment on above: Performed By: #### 4 4333, 00922 ####[facility]3000 [facility].[address] Lymphocytes/100 WBC Auto (Bld) 22.5 % Normal 20.0-45.0 [facility] Comment on above: Performed By: #### 4 0622, 79445 ####[facility]3000 [facility].[address] MCH Auto Entitic mass (RBC) 28.5 pg Normal 27.0-33.0 [facility] Comment on above: Performed By: #### 4 7628, 97037 ####[address] MCHC Auto mass conc (RBC) 32.1 g/dL Normal 32.0-35.0 [facility] Comment on above: Performed By: #### 4 3396, 46212 ####[facility] [place] [address] MCV Auto Entitic volume (RBC) 88.8 fL Normal 82.0-98.0 [facility] Comment on above: Performed By: #### 4 3710, 75015 ####[address] Monocytes Auto #/vol (Bld) 1.1 10*3/uL High 0.1-1.0 [facility] Comment on above: Performed By: #### 4 7055, 34022 ####[facility] [place] [address] MONOS 12.0 % Normal 5.0-12.0 [facility] Comment on above: Performed By: #### 2 5816, 65123 ####[address] Neutrophils/100 WBC Auto (Bld) 63.2 % Normal 40.0-72.0 [facility] Comment on above: Performed By: #### 4 6447, 04960 ####[facility] Nucleated RBC/100 WBC Ratio (Bld) 0 % Normal 0-0 [facility] Comment on above: Performed By: #### 4 6447, 57757 ####[facility]3000 [facility].[address] PLAT CNT 241 10*3/uL Normal 150-400 [facility] Comment on above: Performed By: #### 4 6447, 37727 ####[place] [address] [facility].[address] RBC Auto #/vol (Bld) 4.98 10*6/uL Normal 3.80-5.00 [facility] Comment on above: Performed By: #### 4 6447, 16960 ####[facility] [facility].[address] WBC Auto #/vol (Bld) 9.14 10*3/uL Normal 4.00-10.60 [facility] Comment on above: Performed By: #### 4 6447, 08224 ####[facility]3000 [facility].[address] COMP METABOLIC PANELon 10-23 Albumin mass conc 3.8 g/dL Normal 3.5-5.7 [facility] Comment on above: Performed By: #### 4 6447, 15906 ####[place] [address] [facility].[address] ALKALINE PHOSPH 96 IU/L Normal 34-104 [facility] Comment on above: Performed By: #### 4 6447, 82348 ####[facility] [place] [address], [place] ALT enzyme act/vol 15 U/L Normal 7-52 [facility] Comment on above: Performed By: #### 4 3703, 56047 ####[facility] [place] [address], [place] AST enzyme act/vol 13 U/L Normal 13-39 [facility] Comment on above: Performed By: #### 4 5158, 72587 ####[facility] [place] [address], [place] Bilirubin mass conc 0.4 mg/dL Normal 0.3-1.0 [facility] Comment on above: Performed By: #### 4 5051, 56876 ####[place] [address] [place] [address], [place] Calcium mass conc 9.2 mg/dL Normal 8.6-10.3 [facility] Comment on above: Performed By: #### 2 2590, 03812 ####[facility] [place] [address], [place] Chloride molar conc 102 mmol/L Normal 98-107 [facility] Comment on above: Performed By: #### 4 7387, 68066 ####[facility] [place] [address], [place] CO2 molar conc 29 mmol/L Normal 21-31 [facility] Comment on above: Performed By: #### 4 8675, 25317 ####[facility] [place] [address], [place] Creatinine mass conc 0.80 mg/dL Normal 0.60-1.20 [facility] Comment on above: Performed By: #### 0 7845, 93374 ####[facility] [place] [address], [place] GFR/1.73 sq M predicted among blacks MDRD vol rate/area (S/P/Bld) mL/min/{1.73_m2} Normal >60 The [facility] Comment on above: Performed By: #### 4 6068, 96484 ####[facility] [place] [address], [facility] GFR/1.73 sq M predicted among non-blacks MDRD vol rate/area (S/P/Bld) mL/min/{1.73_m2} Normal >60 The [facility] Comment on above: Performed By: #### 4 4739, 28621 ####[facility] [facility] [place] [address], [facility] Glucose mass conc 85 mg/dL Normal 70-100 [facility] Comment on above: Performed By: #### 6 2096, 74189 ####[facility] [place] [address], [facility] Potassium molar conc 3.3 mmol/L Low 3.5-5.1 [facility] Comment on above: Performed By: #### 2 8917, 20302 ####[facility] [place] [address], [facility] Protein mass conc 6.5 g/dL Normal 6.0-8.3 [facility] Comment on above: Performed By: #### 2 8687, 90906 ####[facility] [place] [address], [facility] Sodium molar conc 139 mmol/L Normal 136-145 [facility] Comment on above: Performed By: #### 6 1789, 37308 ####[facility] [place] [address], [place] Urea nitrogen mass conc 18 mg/dL Normal 7-25 [facility] Comment on above: Performed By: #### 0 6647, 28446 ####[facility] [place] [address], [facility] DIRECT BILIon 10-23-2017 Bilirubin.direct mass conc 0.1 mg/dL Normal 0.0-0.2 [facility] Comment on above: Performed By: #### 4 6447, 57911 ####[facility] [address], [facility] EVEROLIMUS [id number] EVEROLIMUS 4.0 ng/mL Normal [facility] Comment on above: Result Comment: [...] the transplantcenter.Test developed and characteristics determined by [facility]. See Compliance Statement B: Ordr[facility]/CSPerformed by [facility],[address] [place] [id number] sfw.[employer], Leonid Antonio MD - Lab. Director LIPID PROFILEon 10-23-2017 Cholesterol in HDL mass conc 53 mg/dL Normal 23-92 [facility] Comment on above: Result Comment: Slig ht variation in normal range could be due to gender and/or age.HDL CHOLESTEROL REFERENCE RANGE:20 years and older Cardiovascular Risk> or =60 mg/dL Ozcarzpyz04 TO 59 mg/dL Low Risk<40 mg/dL High Risk Performed By: #### 4 7012, 81026 ####[facility] [facility] [place] [address], [facility] Cholesterol in LDL mass conc 68 mg/dL Normal 0-130 [facility] Comment on above: Result Comment: LDL IS A CALCULATIONLDL IS ONLY VALID IF THE TRIG IS LESS THAN 400. Performed By: #### 4 1137, 90150 ####[facility] [place] [address], [facility] Cholesterol mass conc 135 mg/dL Normal 120-200 [facility] Comment on above: Result Comment: CHOL ESTEROL REFERENCE RANGE:20 YEARS AND OLDER CARDIOVASCULAR RISKLess than 200 mg/dl Low Uxkb216 to 239 mg/dl Borderline Zyxa772 mg/dl and greater High Risk Performed By: #### 4 5319, 82046 ####[facility] [facility] [place] [address], [facility] Cholesterol.total/Cho lesterol in HDL mass ratio 2.5 {ratio} Normal .0-4.5 [facility] Comment on above: Performed By: #### 4 6449, 96385 ####[facility] [facility] [place] [address], [facility] NON-HDL CHOLESTEROL 82 mg/dL Normal [facility] Comment on above: Performed By: #### 4 1434, 63554 ####[facility] [facility] [place] [address], [facility] Triglyceride mass conc 72 mg/dL Normal 40-149 [facility] Comment on above: Result Comment: TRIG LYCERIDE REFERENCE RANGE:20 YEARS AND OLDER CARDIOVASCULAR RISKLESS THAN 150 mg/dl LOW [id number] TO 199 mg/dl BORDERLINE [id number] mg/dl AND GREATER HIGH RISK Performed By: #### 1 3689, 88100 ####[facility] [place] [address], [place] VLDL CHOL 14 mg/dL Normal 0-40 [facility] Comment on above: Performed By: #### 4 6447, 18818 ####[facility]3000 [facility].[address] MAGNESIUM BLOODon 10-23-2017 Magnesium mass conc 1.8 mg/dL Low 1.9-2.7 [facility] Comment on above: Performed By: #### 4 6447, 77062 ####[facility] [place] [address] PHOSPHORUS BLOODon 8 Phosphate mass conc 3.7 mg/dL Normal 2.5-5.0 [facility] Comment on above: Performed By: #### 4 6447, 24002 ####[place] [address] [address] TACROLIMUSon 10-23-2017 Tacrolimus mass conc (Bld) 2.6 ng/mL Low 5.0-20.0 [facility] Comment on above: Result Comment: The [employer] Tacrolimus assay is a delayed one-step immunoassayfor the quantitative determination of tacrolimus in human whole bloodusing the chemiluminescent microparticle immunoassay (CMIA) technologywith flexible assay protocols, referred to as Chemiflex. Performed By: #### 4 5347, 23390 ####[place] [address] [address] URIC ACID BLOODon 10-23-2017 Urate mass conc 4.3 mg/dL Normal 2.3-6.6 [facility] Comment on above: Performed By: #### 4 6447, 12051 ####[address] CBC W/DIFFon 09-25-2017 ABS BASOPHILS 0.0 10*3/uL Normal 0.0-0.2 [facility] Comment on above: Performed By: #### 4 1000, 50735, 14109, 88656, 64023, 09000 ####[facility]3000 [facility].[address] ABS IMM GRANS 0.0 10*3/uL Normal 0.0-0.2 [facility] Comment on above: Performed By: #### 4 1000, 39950, 17301, 71457, 54351, 70125 ####[facility]3000 [facility].[address] ABS NEUTROPHILS 4.4 10*3/uL Normal 1.6-7.6 [facility] Comment on above: Performed By: #### 4 1000, 10660, 96652, 47366, 31437, 99025 ####[facility]3000 [facility].[address] Basophils Auto #/vol (Bld) 0.2 % Normal 0.0-1.0 [facility] Comment on above: Performed By: #### 4 1000, 18401, 61519, 05399, 56139, 76017 ####[facility]3000 [facility].[address] Eosinophils Auto #/vol (Bld) 0.1 10*3/uL Normal 0.0-0.5 [facility] Comment on above: Performed By: #### 4 1000, 09224, 28681, 79484, 89847, 13164 ####[facility]3000 [facility].[address] Eosinophils/100 WBC Auto (Bld) 2.2 % Normal 0.0-6.0 [facility] Comment on above: Performed By: #### 4 1000, 78956, 52793, 73560, 52560, 98935 ####[facility]3000 [facility].[address] Erythrocyte distribution width Auto Ratio (RBC) 14.0 % Normal 11.5-15.0 [facility] Comment on above: Performed By: #### 4 1000, 77380, 69435, 71044, 11647, 56194 ####[facility]3000 [facility].[address] Hematocrit Auto Volume Fraction (Bld) 44.8 % Normal 36.0-45.0 [facility] Comment on above: Performed By: #### 4 1000, 98656, 26823, 75609, 63101, 71850 ####[facility]3000 [facility].[address] Hemoglobin mass conc (Bld) 14.5 g/dL Normal 12.0-15.0 [facility] Comment on above: Performed By: #### 4 1000, 40916, 49876, 00993, 70494, 71859 ####[facility]3000 [facility].[address] IMMATURE GRANS 0.3 % Normal 0.0-1.0 [facility] Comment on above: Performed By: #### 4 1000, 59366, 44225, 25562, 61004, 66411 ####[facility]3000 [facility].[address] Lymphocytes Auto #/vol (Bld) 1.1 10*3/uL Low 1.2-4.0 [facility] Comment on above: Performed By: #### 4 1000, 14050, 15664, 97348, 95083, 08418 ####[facility]3000 [facility].[address] Lymphocytes/100 WBC Auto (Bld) 17.0 % Low 20.0-45.0 [facility] Comment on above: Performed By: #### 4 1000, 19718, 60060, 03894, 02626, 78843 ####[facility] [facility].[address] MCH Auto Entitic mass (RBC) 28.6 pg Normal 27.0-33.0 [facility] Comment on above: Performed By: #### 4 1000, 52799, 27160, 35973, 14344, 71449 ####[facility] MCHC Auto mass conc (RBC) 32.4 g/dL Normal 32.0-35.0 [facility] Comment on above: Performed By: #### 4 1000, 25213, 91877, 28457, 44183, 24284 ####[facility] MCV Auto Entitic volume (RBC) 88.4 fL Normal 82.0-98.0 [facility] Comment on above: Performed By: #### 4 1000, 65559, 41960, 77574, 78304, 39538 ####[facility] Monocytes Auto #/vol (Bld) 0.7 10*3/uL Normal 0.1-1.0 [facility] Comment on above: Performed By: #### 4 1000, 95918, 72588, 09207, 89240, 98049 ####[facility] MONOS 11.5 % Normal 5.0-12.0 [facility] Comment on above: Performed By: #### 4 1000, 76203, 02406, 68074, 45169, 57128 ####[facility] Neutrophils/100 WBC Auto (Bld) 68.8 % Normal 40.0-72.0 [facility] Comment on above: Performed By: #### 4 1000, 02851, 93622, 23663, 30163, 43709 ####[facility] [place] [address], [place] Nucleated RBC/100 WBC Ratio (Bld) 0 % Normal 0-0 [facility] Comment on above: Performed By: #### 4 1000, 93307, 55747, 35655, 45660, 44213 ####[facility] [place] [address], [facility] PLAT CNT 212 10*3/uL Normal 150-400 The [facility] Comment on above: Performed By: #### 4 1000, 73754, 40365, 15479, 67229, 55134 ####[facility] RBC Auto #/vol (Bld) 5.07 10*6/uL High 3.80-5.00 [facility] Comment on above: Performed By: #### 4 1000, 75369, 60885, 82688, 19547, 69387 ####[facility] WBC Auto #/vol (Bld) 6.34 10*3/uL Normal 4.00-10.60 [facility] Comment on above: Performed By: #### 4 1000, 39194, 74169, 76276, 01041, 22717 ####[facility] COMP METABOLIC PANELon 09-25 Albumin mass conc 4.0 g/dL Normal 3.5-5.7 [facility] Comment on above: Performed By: #### 4 6447, 58228 ####[facility] ALKALINE PHOSPH 112 IU/L High 34-104 [facility] Comment on above: Performed By: #### 4 6447, 53980 ####[facility] ALT enzyme act/vol 11 U/L Normal 7-52 The [facility] Comment on above: Performed By: #### 4 3147, 69316 ####[facility] [place] [address], [facility] AST enzyme act/vol 17 U/L Normal 13-39 [facility] Comment on above: Performed By: #### 4 2447, 36735 ####[facility] [place] [address], [place] Bilirubin mass conc 0.5 mg/dL Normal 0.3-1.0 [facility] Comment on above: Performed By: #### 4 8314, 39136 ####[facility] [place] [address], [place] Calcium mass conc 9.6 mg/dL Normal 8.6-10.3 [facility] Comment on above: Performed By: #### 1 2495, 95520 ####[facility] [place] [address], [place] Chloride molar conc 104 mmol/L Normal 98-107 [facility] Comment on above: Performed By: #### 4 6228, 46283 ####[facility] [place] [address], [place] CO2 molar conc 28 mmol/L Normal 21-31 [facility] Comment on above: Performed By: #### 0 1612, 00927 ####[facility] [place] [address], [place] Creatinine mass conc 0.83 mg/dL Normal 0.60-1.20 [facility] Comment on above: Performed By: #### 1 1126, 98224 ####[facility].[place] [id number], [place] GFR/1.73 sq M predicted among blacks MDRD vol rate/area (S/P/Bld) mL/min/{1.73_m2} Normal >60 The [facility] Comment on above: Performed By: #### 4 8047, 64800 ####[facility] [place] [address], [facility] GFR/1.73 sq M predicted among non-blacks MDRD vol rate/area (S/P/Bld) mL/min/{1.73_m2} Normal >60 The [facility] Comment on above: Performed By: #### 4 9747, 76674 ####[facility] [place] [address], [facility] Glucose mass conc 91 mg/dL Normal 70-100 [facility] Comment on above: Performed By: #### 4 7147, 18496 ####[facility] [facility] [place] [address], [facility] Potassium molar conc 3.9 mmol/L Normal 3.5-5.1 [facility] Comment on above: Performed By: #### 4 5047, 57899 ####[facility] [facility] [place] [address], [facility] Protein mass conc 7.0 g/dL Normal 6.0-8.3 [facility] Comment on above: Performed By: #### 4 8747, 66392 ####[facility] [place] [address], [facility] Sodium molar conc 140 mmol/L Normal 136-145 The [facility] Comment on above: Performed By: #### 4 4447, 40539 ####[facility] [place] [address], [facility] Urea nitrogen mass conc 15 mg/dL Normal 7-25 [facility] Comment on above: Performed By: #### 4 3547, 93222 ####[facility] [place] [address], [facility] DIRECT BILIon 09-25-2017 Bilirubin.direct mass conc 0.1 mg/dL Normal 0.0-0.2 [facility] Comment on above: Performed By: #### 4 4787, 38561 ####[facility].[place] [id number], [facility] EVEROLIMUS [id number] 8 EVEROLIMUS 5.1 ng/mL Normal [facility] Comment on above: Result Comment: [...] the transplantcenter.Test developed and characteristics determined by [employer]. See Compliance Statement B: OrdrIt/CSPerformed by [employer],[address] [place] [address]7989 egj.OrdrIt, Leonid Antonio MD - Lab. Director LIPID PROFILEon 09-25-2017 Cholesterol in HDL mass conc 48 mg/dL Normal 23-92 [facility] Comment on above: Result Comment: Slig ht variation in normal range could be due to gender and/or age.HDL CHOLESTEROL REFERENCE RANGE:20 years and older Cardiovascular Risk> or =60 mg/dL Enfmmguvf08 TO 59 mg/dL Low Risk<40 mg/dL High Risk Performed By: #### 4 4949, 08467 ####[facility] [facility] [place] [address], [facility] Cholesterol in LDL mass conc 69 mg/dL Normal 0-130 [facility] Comment on above: Result Comment: LDL IS A CALCULATIONLDL IS ONLY VALID IF THE TRIG IS LESS THAN 400. Performed By: #### 4 1444, 19770 ####[facility] [place] [address], [facility] Cholesterol mass conc 138 mg/dL Normal 120-200 [facility] Comment on above: Result Comment: CHOL ESTEROL REFERENCE RANGE:20 YEARS AND OLDER CARDIOVASCULAR RISKLess than 200 mg/dl Low Pofy264 to 239 mg/dl Borderline Pntv530 mg/dl and greater High Risk Performed By: #### 4 4416, 63094 ####[facility] [place] [address].[place] [address], [facility] Cholesterol.total/Cho lesterol in HDL mass ratio 2.9 {ratio} Normal .0-4.5 [facility] Comment on above: Performed By: #### 4 8447, 19387 ####[facility] [facility] [place] [address], [facility] NON-HDL CHOLESTEROL 90 mg/dL Normal [facility] Comment on above: Performed By: #### 4 0898, 84314 ####[facility] [facility] [place] [address], [facility] Triglyceride mass conc 103 mg/dL Normal 40-149 [facility] Comment on above: Result Comment: TRIG LYCERIDE REFERENCE RANGE:20 YEARS AND OLDER CARDIOVASCULAR RISKLESS THAN 150 mg/dl LOW [id number] TO 199 mg/dl BORDERLINE ZFFP393 mg/dl AND GREATER HIGH RISK Performed By: #### 4 0421, 56957 ####[facility] [place] [address], [facility] VLDL CHOL 21 mg/dL Normal 0-40 [facility] Comment on above: Performed By: #### 4 5828, 55934 ####[facility] [facility].[address] MAGNESIUM BLOODon 09-25-2017 Magnesium mass conc 1.8 mg/dL Low 1.9-2.7 [facility] Comment on above: Performed By: #### 4 6447, 43193 ####[facility] [facility] [place] [address], [facility] PHOSPHORUS BLOODon 8 Phosphate mass conc 3.4 mg/dL Normal 2.5-5.0 [facility] Comment on above: Performed By: #### 4 6447, 63914 ####[facility] TACROLIMUSon 09-25-2017 Tacrolimus mass conc (Bld) 3.6 ng/mL Low 5.0-20.0 [facility] Comment on above: Result Comment: The [employer] Tacrolimus assay is a delayed one-step immunoassayfor the quantitative determination of tacrolimus in human whole bloodusing the chemiluminescent microparticle immunoassay (CMIA) technologywith flexible assay protocols, referred to as Chemiflex. Performed By: #### 4 6447, 56574 ####[place] [address] [address] URIC ACID BLOODon 09-25-2017 Urate mass conc 4.7 mg/dL Normal 2.3-6.6 The [facility] Comment on above: Performed By: #### 4 6447, 03134 ####[facility] BK VIRUS QUANTITATION PCR BL OODon 08-26-2017 BKV QUANT PCR Not detected Normal The [facility] Comment on above: Result Comment: Meth od: BK virus was measured by quantitative polymerase chain reactionusing a TaqMan probe targeting the polyomavirus BK SLICING MACHINE FEEDER-1 gene.The lower limit of quantitation of the assay is 500 copies of BK genomeper milliliter of plasma or urine, and any detectable BK DNA below thatlevel is reported as: Detected, <500 copies/ml. Serial BK virusmeasurement can be used to monitor disease activity. (Reference:Kelsie simpson. J CLIN MICRO 2004; 42:9841-9690).This test was developed and its performance characteristics determinedby the [facility] Molecular Diagnostics Laboratory. It has not been approvedby the US Food and Drug Administration. However, such approval is notrequired for clinical implementation, and test results have been shownto be clinically useful. This laboratory is CAP accredited and CLIAcertified to perform high complexity testing. Performed By: #### 4 1000, 60114, 71955, 44657, 41895, 17437 ####[facility] [facility].[address] LOG 10 COPIES Not detected Normal The [facility] Comment on above: Performed By: #### 4 1000, 92608, 29664, 57970, 04565, 45310 ####[place] [address] [facility].[address] CBC W/DIFFon 08-26-2017 ABS BASOPHILS 0.0 10*3/uL Normal 0.0-0.2 [facility] Comment on above: Performed By: #### 4 1000, 47021, 80893, 74347, 94586, 74957 ####[facility] [facility].[address] ABS IMM GRANS 0.0 10*3/uL Normal 0.0-0.2 [facility] Comment on above: Performed By: #### 4 1000, 27334, 07351, 44089, 99138, 97793 ####[facility] [facility].[address] ABS NEUTROPHILS 4.5 10*3/uL Normal 1.6-7.6 The [facility] Comment on above: Performed By: #### 4 1000, 75481, 13871, 91087, 00618, 95660 ####[facility] Basophils Auto #/vol (Bld) 0.2 % Normal 0.0-1.0 [facility] Comment on above: Performed By: #### 4 1000, 73723, 10513, 16692, 94536, 53064 ####[place] [address] [facility].[address] Eosinophils Auto #/vol (Bld) 0.2 10*3/uL Normal 0.0-0.5 [facility] Comment on above: Performed By: #### 4 1000, 32542, 12318, 23441, 80663, 45069 ####[address] Eosinophils/100 WBC Auto (Bld) 2.4 % Normal 0.0-6.0 [facility] Comment on above: Performed By: #### 4 1000, 91346, 63926, 29204, 69362, 12174 ####[place] [address] [facility].[address] Erythrocyte distribution width Auto Ratio (RBC) 14.0 % Normal 11.5-15.0 [facility] Comment on above: Performed By: #### 4 1000, 10170, 34522, 52224, 66658, 63041 ####[place] [address] [facility].[address] Hematocrit Auto Volume Fraction (Bld) 44.9 % Normal 36.0-45.0 [facility] Comment on above: Performed By: #### 4 1000, 97202, 60421, 76329, 29165, 76115 ####[place] [address] [facility].[address] Hemoglobin mass conc (Bld) 14.9 g/dL Normal 12.0-15.0 [facility] Comment on above: Performed By: #### 4 1000, 12976, 05353, 45208, 59016, 28261 ####[facility] [facility].[address] IMMATURE GRANS 0.5 % Normal 0.0-1.0 The [facility] Comment on above: Performed By: #### 4 1000, 41974, 46274, 80310, 36264, 66206 ####[facility] Lymphocytes Auto #/vol (Bld) 1.0 10*3/uL Low 1.2-4.0 [facility] Comment on above: Performed By: #### 4 1000, 72719, 56390, 06848, 71312, 20209 ####[facility] Lymphocytes/100 WBC Auto (Bld) 15.8 % Low 20.0-45.0 [facility] Comment on above: Performed By: #### 4 1000, 53388, 51535, 02024, 08342, 45289 ####[facility] MCH Auto Entitic mass (RBC) 29.1 pg Normal 27.0-33.0 [facility] Comment on above: Performed By: #### 4 1000, 25554, 08991, 15987, 69441, 03036 ####[facility] MCHC Auto mass conc (RBC) 33.2 g/dL Normal 32.0-35.0 [facility] Comment on above: Performed By: #### 4 1000, 56733, 39030, 58964, 10257, 56880 ####[facility] MCV Auto Entitic volume (RBC) 87.7 fL Normal 82.0-98.0 [facility] Comment on above: Performed By: #### 4 1000, 57834, 53644, 13989, 59298, 42113 ####[facility] [facility].[address] Monocytes Auto #/vol (Bld) 0.7 10*3/uL Normal 0.1-1.0 [facility] Comment on above: Performed By: #### 4 1000, 82063, 28372, 13725, 75349, 53292 ####[facility] MONOS 10.6 % Normal 5.0-12.0 [facility] Comment on above: Performed By: #### 4 1000, 38023, 42200, 07381, 84465, 87903 ####[facility] [facility].[address] Neutrophils/100 WBC Auto (Bld) 70.5 % Normal 40.0-72.0 [facility] Comment on above: Performed By: #### 4 1000, 81748, 05581, 25912, 22305, 07416 ####[facility] [facility].[address] Nucleated RBC/100 WBC Ratio (Bld) 0 % Normal 0-0 [facility] Comment on above: Performed By: #### 4 1000, 06042, 53115, 29213, 66301, 47516 ####[facility] [facility].[address] PLAT CNT 231 10*3/uL Normal 150-400 The [facility] Comment on above: Performed By: #### 4 1000, 22245, 44871, 37312, 17000, 44828 ####[facility] [facility].[address] RBC Auto #/vol (Bld) 5.12 10*6/uL High 3.80-5.00 [facility] Comment on above: Performed By: #### 4 1000, 02953, 33541, 10125, 07789, 84412 ####[facility] [facility].[address] WBC Auto #/vol (Bld) 6.32 10*3/uL Normal 4.00-10.60 Th [facility] Comment on above: Performed By: #### 4 1000, 17236, 82576, 67113, 11314, 35300 ####[facility] COMP METABOLIC PANELon 08-26 Albumin mass conc 4.3 g/dL Normal 3.5-5.7 The [facility] Comment on above: Performed By: #### 4 1000, 06826, 63685, 14425, 57981, 18191 ####[facility] [facility].[address] ALKALINE PHOSPH 125 IU/L High 34-104 [facility] Comment on above: Performed By: #### 4 1000, 86887, 69050, 72923, 23605, 24909 ####[facility] [facility].[address] ALT enzyme act/vol 17 U/L Normal 7-52 [facility] Comment on above: Performed By: #### 4 1000, 79487, 80200, 26412, 78370, 85087 ####[facility] AST enzyme act/vol 23 U/L Normal 13-39 [facility] Comment on above: Performed By: #### 4 1000, 91198, 15563, 69297, 67057, 04966 ####[facility] [place] [address], [facility] Bilirubin mass conc 0.4 mg/dL Normal 0.3-1.0 The [facility] Comment on above: Performed By: #### 4 1000, 76385, 50550, 71503, 45977, 71196 ####[facility] [place] [address], [facility] Calcium mass conc 9.6 mg/dL Normal 8.6-10.3 [facility] Comment on above: Performed By: #### 4 1000, 14456, 67915, 62690, 51491, 68564 ####[facility] [place] [address], [place] Chloride molar conc 104 mmol/L Normal 98-107 [facility] Comment on above: Performed By: #### 4 1000, 20904, 32267, 34085, 19382, 44585 ####[facility] [place] [address], [place] CO2 molar conc 27 mmol/L Normal 21-31 [facility] Comment on above: Performed By: #### 4 1000, 54891, 73629, 24046, 18932, 14858 ####[facility] [place] [address], [place] Creatinine mass conc 0.77 mg/dL Normal 0.60-1.20 [facility] Comment on above: Performed By: #### 4 1000, 13466, 60894, 14295, 96321, 48862 ####[facility] [place] [address], [place] GFR/1.73 sq M predicted among blacks MDRD vol rate/area (S/P/Bld) mL/min/{1.73_m2} Normal >60 The [facility] Comment on above: Performed By: #### 4 1000, 67987, 08362, 17283, 59106, 35749 ####[facility] [place] [address], [place] GFR/1.73 sq M predicted among non-blacks MDRD vol rate/area (S/P/Bld) mL/min/{1.73_m2} Normal >60 The [facility] Comment on above: Performed By: #### 4 1000, 18168, 67689, 90391, 98251, 44646 ####[facility] [place] [address], [facility] Glucose mass conc 95 mg/dL Normal 70-100 The [facility] Comment on above: Performed By: #### 4 1000, 22543, 84560, 66275, 17190, 65550 ####[facility] [place] [address], [facility] Potassium molar conc 4.1 mmol/L Normal 3.5-5.1 [facility] Comment on above: Performed By: #### 4 1000, 63214, 81842, 71787, 40527, 39364 ####[facility] [place] [address], [facility] Protein mass conc 7.3 g/dL Normal 6.0-8.3 The [facility] Comment on above: Performed By: #### 4 1000, 51567, 29668, 33861, 58885, 81098 ####[facility] [place] [address], [facility] Sodium molar conc 139 mmol/L Normal 136-145 The [facility] Comment on above: Performed By: #### 4 1000, 55095, 22975, 27330, 27245, 61160 ####[facility] [place] [address], [facility] Urea nitrogen mass conc 12 mg/dL Normal 7-25 [facility] Comment on above: Performed By: #### 4 1000, 98958, 74878, 07664, 12783, 81481 ####[facility] [place] [address], [place] DIRECT BILIon 05-2018 Bilirubin.direct mass conc 0.1 mg/dL Normal 0.0-0.2 [facility] Comment on above: Performed By: #### 4 1000, 73865, 25642, 86781, 76891, 44428 ####[facility] [facility] [place] [address], [facility] EVEROLIMUS [id number] 8 EVEROLIMUS 5.6 ng/mL Normal [facility] Comment on above: Result Comment: [...] the transplantcenter.Test developed and characteristics determined by [employer]. See Compliance Statement B: 2U.Magazino/CSPerformed by [employer],[address] [place] [address] srj.OrdrIt, Leonid Antonio MD - Lab. Director HEMOGLOBIN A1Con 08-26-2017 Glucose mass conc 114 mg/dL Normal 70-126 [facility] Comment on above: Performed By: #### 4 1000, 65249, 36108, 43149, 53088, 55116 ####[facility] [place] [address], [facility] Hemoglobin A1c/Hemoglobin.total mass fraction (Bld) 5.6 % Normal 4.0-6.0 The [facility] Comment on above: Performed By: #### 4 1000, 90677, 94198, 75767, 03342, 41525 ####[facility] [place] [address], [facility] LIPID PROFILEon 08-26-2017 Cholesterol in HDL mass conc 49 mg/dL Normal 23-92 [facility] Comment on above: Result Comment: Slig ht variation in normal range could be due to gender and/or age.HDL CHOLESTEROL REFERENCE RANGE:20 years and older Cardiovascular Risk> or =60 mg/dL Wstsepdmt30 TO 59 mg/dL Low Risk<40 mg/dL High Risk Performed By: #### 4 1000, 68737, 98942, 37034, 67961, 05257 ####[facility] [place] [address], [facility] Cholesterol in LDL mass conc 76 mg/dL Normal 0-130 [facility] Comment on above: Result Comment: LDL IS A CALCULATIONLDL IS ONLY VALID IF THE TRIG IS LESS THAN 400. Performed By: #### 4 1000, 93423, 60454, 20910, 25107, 88253 ####[facility] [place] [address], [facility] Cholesterol mass conc 152 mg/dL Normal 120-200 [facility] Comment on above: Result Comment: CHOL ESTEROL REFERENCE RANGE:20 YEARS AND OLDER CARDIOVASCULAR RISKLess than 200 mg/dl Low Ndlb014 to 239 mg/dl Borderline Gmzo733 mg/dl and greater High Risk Performed By: #### 4 1000, 18724, 30536, 22274, 21793, 06278 ####[facility] [place] [address], [facility] Cholesterol.total/Cho lesterol in HDL mass ratio 3.1 {ratio} Normal .0-4.5 [facility] Comment on above: Performed By: #### 4 1000, 14175, 01471, 65251, 75361, 43532 ####[facility] NON-HDL CHOLESTEROL 103 mg/dL Normal [facility] Comment on above: Performed By: #### 4 1000, 88423, 68895, 51070, 26661, 97105 ####[facility] Triglyceride mass conc 133 mg/dL Normal 40-149 [facility] Comment on above: Result Comment: TRIG LYCERIDE REFERENCE RANGE:20 YEARS AND OLDER CARDIOVASCULAR RISKLESS THAN 150 mg/dl LOW GVGI321 TO 199 mg/dl BORDERLINE XTGI391 mg/dl AND GREATER HIGH RISK Performed By: #### 4 1000, 73088, 78656, 85187, 89223, 59755 ####[facility] VLDL CHOL 27 mg/dL Normal 0-40 [facility] Comment on above: Performed By: #### 4 1000, 91808, 42093, 52232, 61470, 47715 ####[facility] MAGNESIUM BLOODon 08-26-2017 Magnesium mass conc 1.9 mg/dL Normal 1.9-2.7 [facility] Comment on above: Performed By: #### 4 1000, 22793, 28834, 36246, 45268, 99771 ####[facility] [place] [address], [facility] PHOSPHORUS BLOODon 8 Phosphate mass conc 3.4 mg/dL Normal 2.5-5.0 [facility] Comment on above: Performed By: #### 4 1000, 55167, 71729, 78941, 20096, 97529 ####[facility] [place] [address], [facility] TACROLIMUSon 08-26-2017 Tacrolimus mass conc (Bld) 4.3 ng/mL Low 5.0-20.0 [facility] Comment on above: Result Comment: The [employer] Tacrolimus assay is a delayed one-step immunoassayfor the quantitative determination of tacrolimus in human whole bloodusing the chemiluminescent microparticle immunoassay (CMIA) technologywith flexible assay protocols, referred to as Chemiflex. Performed By: #### 4 1000, 80898, 79851, 10396, 21971, 22494 ####[facility] URIC ACID BLOODon 08-26-2017 Urate mass conc 4.6 mg/dL Normal 2.3-6.6 The [facility] Comment on above: Performed By: #### 4 1000, 26056, 71258, 24109, 23231, 40584 ####[facility] CBC W/DIFFon 07-23-2017 ABS BASOPHILS 0.0 10*3/uL Normal 0.0-0.2 [facility] Comment on above: Performed By: #### 4 1000, 51866, 98401, 48401, 43473, 53711 ####[facility] ABS IMM GRANS 0.0 10*3/uL Normal 0.0-0.2 [facility] Comment on above: Performed By: #### 4 1000, 33335, 60596, 07450, 11449, 97918 ####[facility] ABS NEUTROPHILS 4.4 10*3/uL Normal 1.6-7.6 The [facility] Comment on above: Performed By: #### 4 1000, 16151, 18801, 97028, 11237, 27247 ####[facility] [place] [address], [place] Basophils Auto #/vol (Bld) 0.2 % Normal 0.0-1.0 [facility] Comment on above: Performed By: #### 4 1000, 70766, 07312, 60487, 64408, 61802 ####[facility] Eosinophils Auto #/vol (Bld) 0.1 10*3/uL Normal 0.0-0.5 [facility] Comment on above: Performed By: #### 4 1000, 41740, 71027, 69315, 22898, 14183 ####[facility] Eosinophils/100 WBC Auto (Bld) 2.1 % Normal 0.0-6.0 [facility] Comment on above: Performed By: #### 4 1000, 06271, 67863, 68237, 20470, 36975 ####[facility] Erythrocyte distribution width Auto Ratio (RBC) 13.7 % Normal 11.5-15.0 [facility] Comment on above: Performed By: #### 4 1000, 62708, 29888, 66838, 57155, 67468 ####[facility] [facility].[address] Hematocrit Auto Volume Fraction (Bld) 44.4 % Normal 36.0-45.0 [facility] Comment on above: Performed By: #### 4 1000, 12081, 24552, 73919, 04704, 07422 ####[facility] Hemoglobin mass conc (Bld) 14.7 g/dL Normal 12.0-15.0 [facility] Comment on above: Performed By: #### 4 1000, 39549, 58427, 48640, 91337, 19357 ####[facility] IMMATURE GRANS 0.5 % Normal 0.0-1.0 The Nina barber [facility] Comment on above: Performed By: #### 4 1000, 98611, 49120, 41541, 04065, 44317 ####[address] Lymphocytes Auto #/vol (Bld) 1.0 10*3/uL Low 1.2-4.0 [facility] Comment on above: Performed By: #### 4 1000, 90530, 03293, 42997, 49708, 65658 ####[place] [address] [address] Lymphocytes/100 WBC Auto (Bld) 15.5 % Low 20.0-45.0 [facility] Comment on above: Performed By: #### 4 1000, 00175, 25182, 53894, 35870, 24482 ####[facility] [place] [address].[address] MCH Auto Entitic mass (RBC) 28.9 pg Normal 27.0-33.0 [facility] Comment on above: Performed By: #### 4 1000, 89760, 99826, 31746, 36930, 74478 ####[address] MCHC Auto mass conc (RBC) 33.1 g/dL Normal 32.0-35.0 [facility] Comment on above: Performed By: #### 4 1000, 25993, 81565, 78045, 10077, 80170 ####[address] MCV Auto Entitic volume (RBC) 87.4 fL Normal 82.0-98.0 [facility] Comment on above: Performed By: #### 4 1000, 46786, 04212, 94230, 91670, 86104 ####[facility] Monocytes Auto #/vol (Bld) 0.8 10*3/uL Normal 0.1-1.0 [facility] Comment on above: Performed By: #### 4 1000, 10612, 04528, 56848, 73899, 48331 ####[facility] MONOS 12.3 % High 5.0-12.0 [facility] Comment on above: Performed By: #### 4 1000, 51141, 82755, 70709, 27988, 70078 ####[place] [address] [facility].[address] Neutrophils/100 WBC Auto (Bld) 69.4 % Normal 40.0-72.0 [facility] Comment on above: Performed By: #### 4 1000, 47568, 66241, 09237, 54656, 85340 ####[place] [address] [facility] [facility].[address] Nucleated RBC/100 WBC Ratio (Bld) 0 % Normal 0-0 [facility] Comment on above: Performed By: #### 4 1000, 42581, 53406, 01360, 25667, 29803 ####[facility]3000 [facility].[address] PLAT CNT 218 10*3/uL Normal 150-400 The [facility] Comment on above: Performed By: #### 4 1000, 21196, 06457, 43384, 21596, 64825 ####[address] RBC Auto #/vol (Bld) 5.08 10*6/uL High 3.80-5.00 [facility] Comment on above: Performed By: #### 4 1000, 27187, 77215, 46135, 93913, 31678 ####[facility] WBC Auto #/vol (Bld) 6.3 10*3/uL Normal 4.0-10.6 The [facility] Comment on above: Performed By: #### 4 1000, 62193, 61484, 39250, 10130, 22952 ####[facility] COMP METABOLIC PANELon 07-23 Albumin mass conc 4.2 g/dL Normal 3.5-5.7 The [facility] Comment on above: Performed By: #### 4 1000, 92180, 80560, 00068, 09864, 61805 ####[facility] ALKALINE PHOSPH 113 IU/L High 34-104 [facility] Comment on above: Performed By: #### 4 1000, 72541, 68830, 90816, 93293, 51793 ####[facility] ALT enzyme act/vol 23 U/L Normal 7-52 [facility] Comment on above: Performed By: #### 4 1000, 73191, 37715, 72913, 69271, 37912 ####[facility] AST enzyme act/vol 25 U/L Normal 13-39 The [facility] Comment on above: Performed By: #### 4 1000, 22368, 46494, 02730, 79988, 18607 ####[facility] Bilirubin mass conc 0.6 mg/dL Normal 0.3-1.0 [facility] Comment on above: Performed By: #### 4 1000, 40000, 47461, 11578, 04818, 48101 ####[facility] [place] [address], [place] Calcium mass conc 9.6 mg/dL Normal 8.6-10.3 [facility] Comment on above: Performed By: #### 4 1000, 01527, 39244, 66562, 22080, 24225 ####[facility] [place] [address], [place] Chloride molar conc 104 mmol/L Normal 98-107 The [facility] Comment on above: Performed By: #### 4 1000, 28070, 75877, 29026, 62045, 59858 ####[facility] [place] [address], [place] CO2 molar conc 25 mmol/L Normal 21-31 The [facility] Comment on above: Performed By: #### 4 1000, 62629, 52093, 59482, 73327, 79982 ####[facility] [place] [address], [place] Creatinine mass conc 0.80 mg/dL Normal 0.60-1.20 The [facility] Comment on above: Performed By: #### 4 1000, 89285, 21799, 42324, 50721, 40718 ####[facility] [place] [address], [place] GFR/1.73 sq M predicted among blacks MDRD vol rate/area (S/P/Bld) mL/min/{1.73_m2} Normal >60 The [facility] Comment on above: Performed By: #### 4 1000, 49238, 15192, 04005, 19279, 34347 ####[facility] [place] [address], [place] GFR/1.73 sq M predicted among non-blacks MDRD vol rate/area (S/P/Bld) mL/min/{1.73_m2} Normal >60 The [facility] Comment on above: Performed By: #### 4 1000, 26640, 45077, 01669, 43753, 69682 ####[facility] [place] [address], [place] Glucose mass conc 91 mg/dL Normal 70-100 The [facility] Comment on above: Performed By: #### 4 1000, 16014, 85716, 15022, 48706, 37892 ####[facility] [place] [address], [facility] Potassium molar conc 4.0 mmol/L Normal 3.5-5.1 The [facility] Comment on above: Performed By: #### 4 1000, 36197, 50143, 84902, 43357, 76414 ####[facility] [place] [address], [place] Protein mass conc 6.8 g/dL Normal 6.0-8.3 The [facility] Comment on above: Performed By: #### 4 1000, 96914, 19818, 17511, 77246, 24632 ####[facility] [place] [address], [facility] Sodium molar conc 140 mmol/L Normal 136-145 The [facility] Comment on above: Performed By: #### 4 1000, 71066, 35997, 12862, 19456, 95674 ####[facility] [place] [address], [place] Urea nitrogen mass conc 16 mg/dL Normal 7-25 The [facility] Comment on above: Performed By: #### 4 1000, 67837, 56367, 74293, 52698, 45772 ####[facility] [place] [address], [place] DIRECT BILIon 07-23-2017 Bilirubin.direct mass conc 0.2 mg/dL Normal 0.0-0.2 The [facility] Comment on above: Performed By: #### 4 1000, 15647, 18799, 68014, 29583, 71393 ####[facility] EVEROLIMUS 62707po 8 EVEROLIMUS 5.3 ng/mL Normal The [facility] Comment on above: Result Comment: [...] the transplantcenter.Test developed and characteristics determined by [employer]. See Compliance Statement B: OrdrIt/CSPerformed by [employer],[address] [place] [address] [id number] sjn.OrdrIt, Leonid Antonio MD - Lab. Director LIPID PROFILEon 07-23-2017 Cholesterol in HDL mass conc 45 mg/dL Normal 23-92 The [facility] Comment on above: Result Comment: Slig ht variation in normal range could be due to gender and/or age.HDL CHOLESTEROL REFERENCE RANGE:20 years and older Cardiovascular Risk> or =60 mg/dL Knrkugrnf81 TO 59 mg/dL Low Risk<40 mg/dL High Risk Performed By: #### 4 1000, 02732, 35804, 76342, 53661, 65633 ####[facility] [place] [address], [facility] Cholesterol in LDL mass conc 79 mg/dL Normal 0-130 The [facility] Comment on above: Result Comment: LDL IS A CALCULATIONLDL IS ONLY VALID IF THE TRIG IS LESS THAN 400. Performed By: #### 4 1000, 59967, 62975, 34128, 71527, 09374 ####[facility] [place] [address], [facility] Cholesterol mass conc 141 mg/dL Normal 120-200 The [facility] Comment on above: Result Comment: CHOL ESTEROL REFERENCE RANGE:20 YEARS AND OLDER CARDIOVASCULAR RISKLess than 200 mg/dl Low Pynx208 to 239 mg/dl Borderline Lnyi071 mg/dl and greater High Risk Performed By: #### 4 1000, 98577, 30232, 73731, 35883, 87988 ####[facility] [facility] [place] [address], [facility] Cholesterol.total/Cho lesterol in HDL mass ratio 3.1 {ratio} Normal .0-4.5 [facility] Comment on above: Performed By: #### 4 1000, 30871, 12337, 66057, 69370, 34794 ####[facility] [place] [address], [facility] NON-HDL CHOLESTEROL 96 mg/dL Normal The [facility] Comment on above: Performed By: #### 4 1000, 82297, 84870, 52872, 10386, 77723 ####[facility] [place] [address], [facility] Triglyceride mass conc 83 mg/dL Normal 40-149 The [facility] Comment on above: Result Comment: TRIG LYCERIDE REFERENCE RANGE:20 YEARS AND OLDER CARDIOVASCULAR RISKLESS THAN 150 mg/dl LOW [id number] TO 199 mg/dl BORDERLINE ACWS769 mg/dl AND GREATER HIGH RISK Performed By: #### 4 1000, 14055, 00003, 33580, 05815, 67673 ####[facility] VLDL CHOL 17 mg/dL Normal 0-40 The [facility] Comment on above: Performed By: #### 4 1000, 85398, 71186, 61939, 79826, 84980 ####[facility] [place] [address], [facility] MAGNESIUM BLOODon 07-23-2017 Magnesium mass conc 2.0 mg/dL Normal 1.9-2.7 The [facility] Comment on above: Performed By: #### 4 1000, 61885, 81124, 07571, 55037, 41554 ####[facility] [facility] [place] [address], [facility] PHOSPHORUS BLOODon 8 Phosphate mass conc 4.0 mg/dL Normal 2.5-5.0 The [facility] Comment on above: Performed By: #### 4 1000, 06258, 37903, 83346, 68906, 36087 ####[facility] [facility].[address] TACROLIMUSon 07-23-2017 Tacrolimus mass conc (Bld) 4.6 ng/mL Low 5.0-20.0 The [facility] Comment on above: Result Comment: The [employer] Tacrolimus assay is a delayed one-step immunoassayfor the quantitative determination of tacrolimus in human whole bloodusing the chemiluminescent microparticle immunoassay (CMIA) technologywith flexible assay protocols, referred to as Chemiflex. Performed By: #### 4 1000, 08360, 54419, 35954, 51744, 72104 ####[facility] [facility] [place] [address], [facility] URIC ACID BLOODon 07-23-2017 Urate mass conc 4.7 mg/dL Normal 2.3-6.6 The [facility] Comment on above: Performed By: #### 4 1000, 01423, 48913, 42077, 99055, 90610 ####[facility]3000 [facility].[address] CBC W/DIFFon 06-20-2017 ABS BASOPHILS 0.0 10*3/uL Normal 0.0-0.2 The [facility] Comment on above: Performed By: #### 4 1000, 92308, 38638, 60836, 19222, 67916 ####[facility] [facility].[address] ABS IMM GRANS 0.0 10*3/uL Normal 0.0-0.2 The [facility] Comment on above: Performed By: #### 4 1000, 29337, 40167, 32204, 30451, 38702 ####[facility] [facility].[address] ABS NEUTROPHILS 4.2 10*3/uL Normal 1.6-7.6 The [facility] Comment on above: Performed By: #### 4 1000, 06566, 91456, 81688, 90858, 35240 ####[facility] [facility].[address] Basophils Auto #/vol (Bld) 0.2 % Normal 0.0-1.0 The [facility] Comment on above: Performed By: #### 4 1000, 36247, 10971, 86542, 16862, 03273 ####[facility]3000 [facility].[address] Eosinophils Auto #/vol (Bld) 0.1 10*3/uL Normal 0.0-0.5 The [facility] Comment on above: Performed By: #### 4 1000, 00762, 74305, 34974, 19002, 72766 ####[facility]3000 [facility].[address] Eosinophils/100 WBC Auto (Bld) 1.5 % Normal 0.0-6.0 The [facility] Comment on above: Performed By: #### 4 1000, 89168, 52858, 32046, 98387, 83068 ####[facility] [facility].[address] Erythrocyte distribution width Auto Ratio (RBC) 13.4 % Normal 11.5-15.0 The [facility] Comment on above: Performed By: #### 4 1000, 19277, 62992, 78590, 30455, 34762 ####[facility] Hematocrit Auto Volume Fraction (Bld) 44.9 % Normal 36.0-45.0 The [facility] Comment on above: Performed By: #### 4 1000, 12095, 81101, 47367, 18969, 43634 ####[facility] [facility].[address] Hemoglobin mass conc (Bld) 14.9 g/dL Normal 12.0-15.0 The [facility] Comment on above: Performed By: #### 4 1000, 21190, 33893, 60862, 31696, 63621 ####[facility] [facility].[address] IMMATURE GRANS 0.2 % Normal 0.0-1.0 The [facility] Comment on above: Performed By: #### 4 1000, 33545, 64476, 95234, 30259, 21604 ####[facility] [facility].[address] Lymphocytes Auto #/vol (Bld) 1.1 10*3/uL Low 1.2-4.0 The [facility] Comment on above: Performed By: #### 4 1000, 06305, 50078, 19800, 16176, 87644 ####[facility] Lymphocytes/100 WBC Auto (Bld) 17.4 % Low 20.0-45.0 The [facility] Comment on above: Performed By: #### 4 1000, 01199, 12001, 63436, 71777, 29660 ####[facility] MCH Auto Entitic mass (RBC) 29.2 pg Normal 27.0-33.0 The [facility] Comment on above: Performed By: #### 4 1000, 34113, 73315, 30109, 05985, 17688 ####[facility] MCHC Auto mass conc (RBC) 33.2 g/dL Normal 32.0-35.0 [facility] Comment on above: Performed By: #### 4 1000, 51760, 67844, 75191, 11912, 98897 ####[facility] MCV Auto Entitic volume (RBC) 87.9 fL Normal 82.0-98.0 The [facility] Comment on above: Performed By: #### 4 1000, 20964, 53017, 69352, 31238, 24323 ####[facility] Monocytes Auto #/vol (Bld) 0.7 10*3/uL Normal 0.1-1.0 The [facility] Comment on above: Performed By: #### 4 1000, 51526, 52571, 54792, 87809, 72098 ####[facility] MONOS 11.3 % Normal 5.0-12.0 The [facility] Comment on above: Performed By: #### 4 1000, 74716, 27907, 52857, 54891, 46431 ####[facility] Neutrophils/100 WBC Auto (Bld) 69.4 % Normal 40.0-72.0 [facility] Comment on above: Performed By: #### 4 1000, 41205, 29234, 98917, 09589, 96913 ####[facility]3000 [facility].[address] Nucleated RBC/100 WBC Ratio (Bld) 0 % Normal 0-0 [facility] Comment on above: Performed By: #### 4 1000, 86608, 23047, 34891, 02316, 37034 ####[facility]3000 [facility].[address] PLAT CNT 198 10*3/uL Normal 150-400 The [facility] Comment on above: Performed By: #### 4 1000, 14389, 35108, 72659, 35941, 08324 ####[facility]3000 [facility].[address] RBC Auto #/vol (Bld) 5.11 10*6/uL High 3.80-5.00 [facility] Comment on above: Performed By: #### 4 1000, 64763, 61592, 00541, 75026, 42525 ####[facility]3000 [facility].[address] WBC Auto #/vol (Bld) 6.0 10*3/uL Normal 4.0-10.6 [facility] Comment on above: Performed By: #### 4 1000, 83006, 96337, 06212, 99040, 40713 ####[facility]3000 [facility].[address] COMP METABOLIC PANELon 06-20 Albumin mass conc 4.4 g/dL Normal 3.5-5.7 The [facility] Comment on above: Performed By: #### 4 1000, 29433, 88862, 21295, 55048, 57675 ####[facility] [place] [address], [facility] ALKALINE PHOSPH 133 IU/L High 34-104 The [facility] Comment on above: Performed By: #### 4 1000, 30343, 65973, 35646, 42372, 83156 ####[facility] [place] [address], [facility] ALT enzyme act/vol 16 U/L Normal 7-52 The [facility] Comment on above: Performed By: #### 4 1000, 15021, 95170, 97864, 10848, 41194 ####[facility] [place] [address], [facility] AST enzyme act/vol 21 U/L Normal 13-39 The [facility] Comment on above: Performed By: #### 4 1000, 84836, 98937, 60743, 93415, 68470 ####[facility] [place] [address], [facility] Bilirubin mass conc 0.8 mg/dL Normal 0.3-1.0 The [facility] Comment on above: Performed By: #### 4 1000, 26636, 27692, 99373, 03843, 18192 ####[facility] [place] [address], [facility] Calcium mass conc 10.0 mg/dL Normal 8.6-10.3 The [facility] Comment on above: Performed By: #### 4 1000, 24107, 19415, 81150, 47330, 43931 ####[facility] [place] [address], [facility] Chloride molar conc 106 mmol/L Normal 98-107 The [facility] Comment on above: Performed By: #### 4 1000, 75456, 17284, 39951, 21426, 99249 ####[facility] [place] [address], [place] CO2 molar conc 27 mmol/L Normal 21-31 The [facility] Comment on above: Performed By: #### 4 1000, 21366, 97622, 95156, 32378, 68567 ####[facility] [place] [address], [place] Creatinine mass conc 0.74 mg/dL Normal 0.60-1.20 [facility] Comment on above: Performed By: #### 4 1000, 92708, 13006, 39114, 48974, 35187 ####[facility] [place] [address], [place] GFR/1.73 sq M predicted among blacks MDRD vol rate/area (S/P/Bld) mL/min/{1.73_m2} Normal >60 The [facility] Comment on above: Performed By: #### 4 1000, 28222, 57505, 56266, 44045, 05167 ####[facility] [place] [address], [place] GFR/1.73 sq M predicted among non-blacks MDRD vol rate/area (S/P/Bld) mL/min/{1.73_m2} Normal >60 The [facility] Comment on above: Performed By: #### 4 1000, 84544, 54532, 53401, 29060, 13907 ####[facility] [place] [address], [place] Glucose mass conc 95 mg/dL Normal 70-100 [facility] Comment on above: Performed By: #### 4 1000, 79762, 48765, 37133, 46933, 05161 ####[facility] [place] [address], [place] Potassium molar conc 3.8 mmol/L Normal 3.5-5.1 [facility] Comment on above: Performed By: #### 4 1000, 96316, 95284, 42637, 13520, 51806 ####[facility] Protein mass conc 7.3 g/dL Normal 6.0-8.3 The [facility] Comment on above: Performed By: #### 4 1000, 17822, 14509, 58769, 40377, 59006 ####[facility] Sodium molar conc 137 mmol/L Normal 136-145 The [facility] Comment on above: Performed By: #### 4 1000, 53352, 19287, 72453, 89746, 36252 ####[facility] Urea nitrogen mass conc 16 mg/dL Normal 7-25 [facility] Comment on above: Performed By: #### 4 1000, 24147, 59819, 19590, 45414, 19726 ####[facility] [facility].[address] DIRECT BILIon 06-20-2017 Bilirubin.direct mass conc 0.1 mg/dL Normal 0.0-0.2 The [facility] Comment on above: Performed By: #### 4 1000, 74828, 43630, 60914, 00352, 81367 ####[facility] [facility].[address] EVEROLIMUS [id number] 8 EVEROLIMUS 6.7 ng/mL Normal The [facility] Comment on above: Result Comment: [...] the transplantcenter.Test developed and characteristics determined by [employer]. See Compliance Statement B: 2U.Mag[employer]/CSPerformed by [employer],[address] [place] [address] 21730 tit.OrdrIt, Leonid Antonio MD - Lab. Director LIPID PROFILEon 06-20-2017 Cholesterol in HDL mass conc 45 mg/dL Normal 23-92 The [facility] Comment on above: Result Comment: Slig ht variation in normal range could be due to gender and/or age.HDL CHOLESTEROL REFERENCE RANGE:20 years and older Cardiovascular Risk> or =60 mg/dL [id number] TO 59 mg/dL Low Risk<40 mg/dL High Risk Performed By: #### 4 1000, 72962, 84750, 41751, 30191, 45710 ####[facility]3000 [facility].[address] Cholesterol in LDL mass conc 58 mg/dL Normal 0-130 The [facility] Comment on above: Result Comment: LDL IS A CALCULATIONLDL IS ONLY VALID IF THE TRIG IS LESS THAN 400. Performed By: #### 4 1000, 66941, 71058, 73065, 87633, 73326 ####[facility] [place] [address], [facility] Cholesterol mass conc 126 mg/dL Normal 120-200 The [facility] Comment on above: Result Comment: CHOL ESTEROL REFERENCE RANGE:20 YEARS AND OLDER CARDIOVASCULAR RISKLess than 200 mg/dl Low Riud105 to 239 mg/dl Borderline Hmwe387 mg/dl and greater High Risk Performed By: #### 4 1000, 39568, 81066, 85168, 64081, 14093 ####[facility] Cholesterol.total/Cho lesterol in HDL mass ratio 2.8 {ratio} Normal .0-4.5 The [facility] Comment on above: Performed By: #### 4 1000, 91983, 45228, 79364, 28506, 90274 ####[facility], [place] [address] [place] [address] NON-HDL CHOLESTEROL 81 mg/dL Normal The [facility] Comment on above: Performed By: #### 4 1000, 43584, 40894, 69591, 39963, 88495 ####[facility] Triglyceride mass conc 113 mg/dL Normal 40-149 The [facility] Comment on above: Result Comment: TRIG LYCERIDE REFERENCE RANGE:20 YEARS AND OLDER CARDIOVASCULAR RISKLESS THAN 150 mg/dl LOW [id number] TO 199 mg/dl BORDERLINE [id number] mg/dl AND GREATER HIGH RISK Performed By: #### 4 1000, 61601, 53281, 40314, 27093, 57220 ####[facility] VLDL CHOL 23 mg/dL Normal 0-40 [facility] Comment on above: Performed By: #### 4 1000, 24539, 53691, 54584, 26926, 90032 ####[facility] [place] [address], [facility] MAGNESIUM BLOODon 06-20-2017 Magnesium mass conc 1.9 mg/dL Normal 1.9-2.7 The [facility] Comment on above: Performed By: #### 4 1000, 39056, 06943, 21351, 98084, 53936 ####[facility] [place] [address], [facility] PHOSPHORUS BLOODon 8 Phosphate mass conc 3.1 mg/dL Normal 2.5-5.0 The [facility] Comment on above: Performed By: #### 4 1000, 86062, 00569, 74735, 43536, 31699 ####[facility] TACROLIMUSon 06-20-2017 Tacrolimus mass conc (Bld) 4.2 ng/mL Low 5.0-20.0 [facility] Comment on above: Result Comment: The [employer] Tacrolimus assay is a delayed one-step immunoassayfor the quantitative determination of tacrolimus in human whole bloodusing the chemiluminescent microparticle immunoassay (CMIA) technologywith flexible assay protocols, referred to as Chemiflex. Performed By: #### 4 1000, 20663, 19402, 15172, 28742, 76154 ####[facility] URIC ACID BLOODon 06-20-2017 Urate mass conc 4.3 mg/dL Normal 2.3-6.6 The [facility] Comment on above: Performed By: #### 4 1000, 20054, 24667, 23557, 06410, 16853 ####[facility] BK VIRUS QUANTITATION PCR BL OODon 05-27-2017 BKV QUANT PCR Not detected Normal The [facility] Comment on above: Result Comment: Meth od: BK virus was measured by quantitative polymerase chain reactionusing a TaqMan probe targeting the polyomavirus BK SLICING MACHINE FEEDER-1 gene.The lower limit of quantitation of the assay is 500 copies of BK genomeper milliliter of plasma or urine, and any detectable BK DNA below thatlevel is reported as: Detected, <500 copies/ml. Serial BK virusmeasurement can be used to monitor disease activity. (Reference:Kelsie vaughanl. J CLIN MICRO 2004; 42:5419-0952).This test was developed and its performance characteristics determinedby the [facility]. It has not been approvedby the US Food and Drug Administration. However, such approval is notrequired for clinical implementation, and test results have been shownto be clinically useful. This laboratory is CAP accredited and CLIAcertified to perform high complexity testing. Performed By: #### 4 1000, 26483, 08215, 99019, 86248, 19241 ####[facility]3000 [facility].[address] LOG 10 COPIES Not detected Normal The [facility] Comment on above: Performed By: #### 4 1000, 51477, 60758, 19028, 42983, 46829 ####[place] [id number] [facility].[address] CBC W/DIFFon 05-27-2017 ABS BASOPHILS 0.0 10*3/uL Normal 0.0-0.2 [facility] Comment on above: Performed By: #### 4 1000, 48315, 60762, 11668, 41163, 24039 ####[facility]3000 [facility].[address] ABS IMM GRANS 0.0 10*3/uL Normal 0.0-0.2 [facility] Comment on above: Performed By: #### 4 1000, 03436, 54405, 11130, 67836, 72208 ####[place] [address] [facility].[address] ABS NEUTROPHILS 4.8 10*3/uL Normal 1.6-7.6 The [facility] Comment on above: Performed By: #### 4 1000, 53599, 92753, 15126, 76842, 17512 ####[facility]3000 [facility].[address] Basophils Auto #/vol (Bld) 0.0 % Normal 0.0-1.0 [facility] Comment on above: Performed By: #### 4 1000, 83160, 17041, 28211, 80437, 26348 ####[facility] Eosinophils Auto #/vol (Bld) 0.1 10*3/uL Normal 0.0-0.5 [facility] Comment on above: Performed By: #### 4 1000, 41940, 52872, 04512, 20227, 95526 ####[facility] Eosinophils/100 WBC Auto (Bld) 1.1 % Normal 0.0-6.0 [facility] Comment on above: Performed By: #### 4 1000, 33049, 19320, 14980, 55765, 38839 ####[facility].[address] Erythrocyte distribution width Auto Ratio (RBC) 13.5 % Normal 11.5-15.0 [facility] Comment on above: Performed By: #### 4 1000, 92341, 66784, 93175, 31128, 12513 ####[facility]3000 [facility].[address] Hematocrit Auto Volume Fraction (Bld) 46.1 % High 36.0-45.0 [facility] Comment on above: Performed By: #### 4 1000, 10581, 20822, 16586, 84493, 32669 ####[facility]3000 [facility].[address] Hemoglobin mass conc (Bld) 15.0 g/dL Normal 12.0-15.0 [facility] Comment on above: Performed By: #### 4 1000, 04002, 92644, 58484, 74129, 28839 ####[facility].[address] IMMATURE GRANS 0.3 % Normal 0.0-1.0 [facility] Comment on above: Performed By: #### 4 1000, 87170, 85927, 30997, 68177, 02392 ####[facility]3000 [facility].[address] Lymphocytes Auto #/vol (Bld) 1.0 10*3/uL Low 1.2-4.0 [facility] Comment on above: Performed By: #### 4 1000, 80867, 68112, 99216, 82848, 99079 ####[facility].[address] Lymphocytes/100 WBC Auto (Bld) 15.7 % Low 20.0-45.0 [facility] Comment on above: Performed By: #### 4 1000, 05671, 13251, 60809, 66319, 10445 ####[facility]3000 [facility].[address] MCH Auto Entitic mass (RBC) 28.8 pg Normal 27.0-33.0 [facility] Comment on above: Performed By: #### 4 1000, 33305, 84488, 90713, 10794, 09725 ####[facility]3000 [facility].[address] MCHC Auto mass conc (RBC) 32.5 g/dL Normal 32.0-35.0 [facility] Comment on above: Performed By: #### 4 1000, 18684, 06520, 31099, 02736, 49612 ####[facility]3000 [facility].[address] MCV Auto Entitic volume (RBC) 88.7 fL Normal 82.0-98.0 [facility] Comment on above: Performed By: #### 4 1000, 15330, 55638, 86279, 43155, 59974 ####[facility]3000 [facility].[address] Monocytes Auto #/vol (Bld) 0.8 10*3/uL Normal 0.1-1.0 [facility] Comment on above: Performed By: #### 4 1000, 76013, 12771, 94115, 37736, 63686 ####[facility] [place] [address], [facility] MONOS 11.4 % Normal 5.0-12.0 The [facility] Comment on above: Performed By: #### 4 1000, 67408, 48650, 87053, 96547, 15669 ####[facility] Neutrophils/100 WBC Auto (Bld) 71.5 % Normal 40.0-72.0 [facility] Comment on above: Performed By: #### 4 1000, 58038, 32186, 21992, 47153, 96812 ####[facility] Nucleated RBC/100 WBC Ratio (Bld) 0 % Normal 0-0 [facility] Comment on above: Performed By: #### 4 1000, 94185, 79925, 47712, 87803, 58545 ####[facility] PLAT CNT 199 10*3/uL Normal 150-400 The [facility] Comment on above: Performed By: #### 4 1000, 03488, 03201, 45332, 67586, 37748 ####[facility] RBC Auto #/vol (Bld) 5.20 10*6/uL High 3.80-5.00 Th e [facility] Comment on above: Performed By: #### 4 1000, 36627, 19277, 49660, 20861, 93680 ####[facility] WBC Auto #/vol (Bld) 6.6 10*3/uL Normal 4.0-10.6 [facility] Comment on above: Performed By: #### 4 1000, 37400, 33101, 61600, 49251, 92381 ####[facility] COMP METABOLIC PANELon 05-27 Albumin mass conc 4.6 g/dL Normal 3.5-5.7 The [facility] Comment on above: Performed By: #### 4 1000, 22373, 80779, 42461, 30055, 82811 ####[facility] ALKALINE PHOSPH 105 IU/L High 34-104 [facility] Comment on above: Performed By: #### 4 1000, 21075, 91749, 51974, 20807, 00777 ####[facility] ALT enzyme act/vol 20 U/L Normal 7-52 The [facility] Comment on above: Performed By: #### 4 1000, 73453, 64163, 57411, 52445, 46207 ####[facility] AST enzyme act/vol 23 U/L Normal 13-39 The [facility] Comment on above: Performed By: #### 4 1000, 92288, 90596, 63116, 29891, 59913 ####[facility] [place] [address], [facility] Bilirubin mass conc 0.6 mg/dL Normal 0.3-1.0 The [facility] Comment on above: Performed By: #### 4 1000, 87503, 02702, 31260, 61671, 63110 ####[facility] [place] [address], [place] Calcium mass conc 9.8 mg/dL Normal 8.6-10.3 The [facility] Comment on above: Performed By: #### 4 1000, 21630, 25583, 06521, 67463, 04160 ####[facility] [place] [address], [place] Chloride molar conc 106 mmol/L Normal 98-107 The [facility] Comment on above: Performed By: #### 4 1000, 77796, 64882, 80943, 21316, 45566 ####[facility] [place] [address], [place] CO2 molar conc 30 mmol/L Normal 21-31 The [facility] Comment on above: Performed By: #### 4 1000, 76139, 75304, 33710, 06064, 01660 ####[facility] [place] [address], [place] Creatinine mass conc 0.80 mg/dL Normal 0.60-1.20 [facility] Comment on above: Performed By: #### 4 1000, 50875, 02455, 24302, 20934, 67050 ####[facility] [place] [address], [place] GFR/1.73 sq M predicted among blacks MDRD vol rate/area (S/P/Bld) mL/min/{1.73_m2} Normal >60 The [facility] Comment on above: Performed By: #### 4 1000, 57555, 30020, 60187, 86954, 41193 ####[facility] [place] [address], [place] GFR/1.73 sq M predicted among non-blacks MDRD vol rate/area (S/P/Bld) mL/min/{1.73_m2} Normal >60 The [facility] Comment on above: Performed By: #### 4 1000, 62074, 37540, 08581, 88858, 76431 ####[facility] [place] [address], [facility] Glucose mass conc 90 mg/dL Normal 70-100 The [facility] Comment on above: Performed By: #### 4 1000, 98608, 78896, 55583, 69693, 11236 ####[facility] [place] [address], [facility] Potassium molar conc 4.0 mmol/L Normal 3.5-5.1 The [facility] Comment on above: Performed By: #### 4 1000, 52247, 71726, 85761, 35827, 05009 ####[facility].[place] [id number], [facility] Protein mass conc 6.8 g/dL Normal 6.0-8.3 The [facility] Comment on above: Performed By: #### 4 1000, 99092, 24538, 44402, 09318, 28060 ####[facility] [place] [address], [facility] Sodium molar conc 138 mmol/L Normal 136-145 The [facility] Comment on above: Performed By: #### 4 1000, 23319, 73297, 31809, 54005, 66332 ####[facility] [place] [address], [facility] Urea nitrogen mass conc 14 mg/dL Normal 7-25 [facility] Comment on above: Performed By: #### 4 1000, 56921, 78930, 04050, 47757, 59466 ####[facility] [place] [address], [facility] DIRECT BILIon 05-27-2017 Bilirubin.direct mass conc 0.1 mg/dL Normal 0.0-0.2 The [facility] Comment on above: Performed By: #### 4 1000, 11069, 49069, 91473, 74033, 93279 ####[facility]3000 [facility].[address] EVEROLIMUS [id number] EVEROLIMUS 5.6 ng/mL Normal [facility] Comment on above: Result Comment: [...] the transplantcenter.Test developed and characteristics determined by [employer]. See Compliance Statement B: OrdrIt/CSPerformed by [employer],[address] [place] [address]10 gzc[employer], Leonid Antonio MD - Lab. Director HEMOGLOBIN A1Con 05-27-2017 Glucose mass conc 108 mg/dL Normal 70-126 [facility] Comment on above: Performed By: #### 4 1000, 60000, 79482, 72831, 90624, 03604 ####[facility] [facility] [place] [place] [address], [facility] Hemoglobin A1c/Hemoglobin.total mass fraction (Bld) 5.4 % Normal 4.0-6.0 The [facility] Comment on above: Performed By: #### 4 1000, 04650, 78247, 74712, 38008, 16980 ####[facility] [place] [address], [facility] LIPID PROFILEon 05-27-2017 Cholesterol in HDL mass conc 39 mg/dL Normal 23-92 The [facility] Comment on above: Result Comment: Slig ht variation in normal range could be due to gender and/or age.HDL CHOLESTEROL REFERENCE RANGE:20 years and older Cardiovascular Risk> or =60 mg/dL [id number] TO 59 mg/dL Low Risk<40 mg/dL High Risk Performed By: #### 4 1000, 89918, 52246, 73204, 59484, 54693 ####[facility] [place] [address], [facility] Cholesterol in LDL mass conc 52 mg/dL Normal 0-130 The [facility] Comment on above: Result Comment: LDL IS A CALCULATIONLDL IS ONLY VALID IF THE TRIG IS LESS THAN 400. Performed By: #### 4 1000, 24510, 20034, 95147, 30968, 73983 ####[facility] [place] [address], [facility] Cholesterol mass conc 117 mg/dL Low 120-200 [facility] Comment on above: Result Comment: CHOL ESTEROL REFERENCE RANGE:20 YEARS AND OLDER CARDIOVASCULAR RISKLess than 200 mg/dl Low [id number] to 239 mg/dl Borderline [id number] mg/dl and greater High Risk Performed By: #### 4 1000, 80509, 65465, 79786, 31400, 91063 ####[facility] [place] [address], [facility] Cholesterol.total/Cho lesterol in HDL mass ratio 3.0 {ratio} Normal .0-4.5 The [facility] Comment on above: Performed By: #### 4 1000, 80447, 81749, 65234, 72633, 76459 ####[facility] [place] [address], [place] NON-HDL CHOLESTEROL 78 mg/dL Normal The [facility] Comment on above: Performed By: #### 4 1000, 30756, 67974, 12454, 03328, 70811 ####[facility] Triglyceride mass conc 131 mg/dL Normal 40-149 The [facility] Comment on above: Result Comment: TRIG LYCERIDE REFERENCE RANGE:20 YEARS AND OLDER CARDIOVASCULAR RISKLESS THAN 150 mg/dl LOW [id number] TO 199 mg/dl BORDERLINE [id number] mg/dl AND GREATER HIGH RISK Performed By: #### 4 1000, 31363, 43980, 22352, 61120, 24814 ####[facility] VLDL CHOL 26 mg/dL Normal 0-40 [facility] Comment on above: Performed By: #### 4 1000, 41332, 23068, 25510, 82672, 35127 ####[facility] MAGNESIUM BLOODon 05-27-2017 Magnesium mass conc 2.1 mg/dL Normal 1.9-2.7 The [facility] Comment on above: Performed By: #### 4 1000, 62144, 64156, 22335, 42672, 94192 ####[facility] PHOSPHORUS BLOODon 8 Phosphate mass conc 3.5 mg/dL Normal 2.5-5.0 The [facility] Comment on above: Performed By: #### 4 1000, 05127, 19738, 73117, 87378, 36615 ####[facility] TACROLIMUSon 05-27-2017 Tacrolimus mass conc (Bld) 4.4 ng/mL Low 5.0-20.0 The [facility] Comment on above: Result Comment: The [employer] Tacrolimus assay is a delayed one-step immunoassayfor the quantitative determination of tacrolimus in human whole bloodusing the chemiluminescent microparticle immunoassay (CMIA) technologywith flexible assay protocols, referred to as Chemiflex. Performed By: #### 4 1000, 33365, 99720, 28626, 00203, 30113 ####[facility]3000 [facility].[address] URIC ACID BLOODon 05-27-2017 Urate mass conc 4.6 mg/dL Normal 2.3-6.6 The [facility] Comment on above: Performed By: #### 4 1000, 04196, 84994, 90502, 23051, 79065 ####[facility]3000 [facility].[address] CBC W/DIFFon 04-29-2017 ABS BASOPHILS 0.0 10*3/uL Normal 0.0-0.2 The [facility] Comment on above: Performed By: #### 4 1000, 43797, 15750, 03058, 59637, 37847 ####[facility]3000 [facility].[address] ABS IMM GRANS 0.0 10*3/uL Normal 0.0-0.2 The [facility] Comment on above: Performed By: #### 4 1000, 07454, 26643, 87463, 19603, 65336 ####[facility]3000 [facility].[address] ABS NEUTROPHILS 4.6 10*3/uL Normal 1.6-7.6 The [facility] Comment on above: Performed By: #### 4 1000, 09662, 77783, 66917, 00395, 84618 ####[facility]3000 [facility].[address] Basophils Auto #/vol (Bld) 0.3 % Normal 0.0-1.0 The [facility] Comment on above: Performed By: #### 4 1000, 82426, 10198, 05146, 04815, 60496 ####[facility] Eosinophils Auto #/vol (Bld) 0.1 10*3/uL Normal 0.0-0.5 The [facility] Comment on above: Performed By: #### 4 1000, 17130, 48706, 04058, 39853, 12545 ####[address] Eosinophils/100 WBC Auto (Bld) 1.7 % Normal 0.0-6.0 The [facility] Comment on above: Performed By: #### 4 1000, 39880, 04741, 74235, 57373, 05014 ####[address] Erythrocyte distribution width Auto Ratio (RBC) 13.7 % Normal 11.5-15.0 The [facility] Comment on above: Performed By: #### 4 1000, 61668, 47604, 04198, 60872, 84622 ####[place] [address] [facility].[address] Hematocrit Auto Volume Fraction (Bld) 45.0 % Normal 36.0-45.0 [facility] Comment on above: Performed By: #### 4 1000, 76032, 74662, 24530, 27705, 00298 ####[place] [address] [facility].[address] Hemoglobin mass conc (Bld) 14.9 g/dL Normal 12.0-15.0 [facility] Comment on above: Performed By: #### 4 1000, 21339, 34722, 49386, 70627, 60298 ####[facility] IMMATURE GRANS 0.3 % Normal 0.0-1.0 [facility] Comment on above: Performed By: #### 4 1000, 11207, 08079, 39158, 08866, 01159 ####[facility]3000 [facility].[address] Lymphocytes Auto #/vol (Bld) 0.9 10*3/uL Low 1.2-4.0 The [facility] Comment on above: Performed By: #### 4 1000, 61916, 37957, 81178, 68614, 31981 ####[facility]3000 [facility].[address] Lymphocytes/100 WBC Auto (Bld) 14.2 % Low 20.0-45.0 The [facility] Comment on above: Performed By: #### 4 1000, 32228, 08528, 31697, 86476, 49116 ####[facility]3000 [facility].[address] MCH Auto Entitic mass (RBC) 29.4 pg Normal 27.0-33.0 The [facility] Comment on above: Performed By: #### 4 1000, 40104, 17968, 62784, 85591, 70481 ####[facility]3000 [facility].[address] MCHC Auto mass conc (RBC) 33.1 g/dL Normal 32.0-35.0 [facility] Comment on above: Performed By: #### 4 1000, 77505, 21720, 14649, 62313, 19933 ####[facility]3000 [facility].[address] MCV Auto Entitic volume (RBC) 88.8 fL Normal 82.0-98.0 The [facility] Comment on above: Performed By: #### 4 1000, 36686, 24629, 32518, 64190, 60085 ####[facility]3000 [facility].[address] Monocytes Auto #/vol (Bld) 0.8 10*3/uL Normal 0.1-1.0 The [facility] Comment on above: Performed By: #### 4 1000, 03952, 85063, 92300, 71642, 96296 ####[facility]3000 [facility] [place] [address], [facility] MONOS 12.2 % High 5.0-12.0 The [facility] Comment on above: Performed By: #### 4 1000, 02168, 59420, 15816, 67636, 99761 ####[facility]3000 [facility].[address] Neutrophils/100 WBC Auto (Bld) 71.3 % Normal 40.0-72.0 The [facility] Comment on above: Performed By: #### 4 1000, 47625, 61837, 78112, 53616, 03877 ####[facility]3000 [facility].[address] Nucleated RBC/100 WBC Ratio (Bld) 0 % Normal 0-0 The [facility] Comment on above: Performed By: #### 4 1000, 32745, 89711, 07614, 46334, 64848 ####[facility]3000 [facility].[address] PLAT CNT 215 10*3/uL Normal 150-400 The [facility] Comment on above: Performed By: #### 4 1000, 78795, 72980, 03895, 82994, 61667 ####[facility]3000 [facility].[address] RBC Auto #/vol (Bld) 5.07 10*6/uL High 3.80-5.00 Th e [facility] Comment on above: Performed By: #### 4 1000, 02755, 47391, 45977, 10933, 23232 ####[facility]3000 [facility].[address] WBC Auto #/vol (Bld) 6.5 10*3/uL Normal 4.0-10.6 The [facility] Comment on above: Performed By: #### 4 1000, 84551, 71412, 11450, 87006, 07522 ####[facility] COMP METABOLIC PANELon 04-29 Albumin mass conc 4.4 g/dL Normal 3.5-5.7 The [facility] Comment on above: Performed By: #### 4 1000, 88784, 99298, 98397, 36878, 88004 ####[facility] ALKALINE PHOSPH 114 IU/L High 34-104 The [facility] Comment on above: Performed By: #### 4 1000, 43204, 86427, 82256, 69934, 66976 ####[facility] ALT enzyme act/vol 15 U/L Normal 7-52 The [facility] Comment on above: Performed By: #### 4 1000, 91788, 46585, 95095, 76197, 03569 ####[facility] AST enzyme act/vol 19 U/L Normal 13-39 The [facility] Comment on above: Performed By: #### 4 1000, 76639, 63361, 67195, 94749, 51045 ####[facility] [place] [address], [facility] Bilirubin mass conc 0.7 mg/dL Normal 0.3-1.0 The [facility] Comment on above: Performed By: #### 4 1000, 68765, 14907, 53249, 33055, 14138 ####[facility] [place] [address], [facility] Calcium mass conc 9.6 mg/dL Normal 8.6-10.3 The [facility] Comment on above: Performed By: #### 4 1000, 96314, 90945, 95361, 58142, 96066 ####[facility] [place] [address], [facility] Chloride molar conc 103 mmol/L Normal 98-107 The [facility] Comment on above: Performed By: #### 4 1000, 81397, 91127, 51664, 62855, 31517 ####[facility] [place] [address], [place] CO2 molar conc 29 mmol/L Normal 21-31 The [facility] Comment on above: Performed By: #### 4 1000, 84594, 00782, 92790, 32209, 21280 ####[facility] [place] [address], [place] Creatinine mass conc 0.79 mg/dL Normal 0.60-1.20 [facility] Comment on above: Performed By: #### 4 1000, 95020, 62182, 83362, 78163, 57806 ####[facility] [place] [address], [place] GFR/1.73 sq M predicted among blacks MDRD vol rate/area (S/P/Bld) mL/min/{1.73_m2} Normal >60 The [facility] Comment on above: Performed By: #### 4 1000, 41505, 92501, 56649, 03617, 96477 ####[facility] [place] [address], [place] GFR/1.73 sq M predicted among non-blacks MDRD vol rate/area (S/P/Bld) mL/min/{1.73_m2} Normal >60 The [facility] Comment on above: Performed By: #### 4 1000, 30775, 04260, 14258, 27705, 95537 ####[facility] [place] [address], [facility] Glucose mass conc 90 mg/dL Normal 70-100 The [facility] Comment on above: Performed By: #### 4 1000, 83745, 97825, 24663, 63430, 59713 ####[facility] [place] [address], [facility] Potassium molar conc 3.8 mmol/L Normal 3.5-5.1 The [facility] Comment on above: Performed By: #### 4 1000, 99941, 98133, 19075, 28534, 20148 ####[facility] [facility] [place] [address], [facility] Protein mass conc 7.2 g/dL Normal 6.0-8.3 The [facility] Comment on above: Performed By: #### 4 1000, 05319, 09984, 53007, 37182, 18165 ####[facility] [facility] [place] [address], [facility] Sodium molar conc 140 mmol/L Normal 136-145 The [facility] Comment on above: Performed By: #### 4 1000, 93451, 09988, 31978, 25517, 47595 ####[facility] [facility] [place] [address], [facility] Urea nitrogen mass conc 15 mg/dL Normal 7-25 [facility] Comment on above: Performed By: #### 4 1000, 58638, 83855, 38530, 30295, 08596 ####[facility] [place] [address], [facility] DIRECT BILIon 04-29-2017 Bilirubin.direct mass conc 0.1 mg/dL Normal 0.0-0.2 [facility] Comment on above: Order Comment: Liver Battery conflicts with Comprehensive Metabolic Panel. Liver Battery canceled and Direct Bilirubin added. Performed By: #### 4 1000, 05474, 40536, 28905, 47217, 77857 ####[facility] [place] [address], [facility] EVEROLIMUS [id number] EVEROLIMUS 5.4 ng/mL Normal [facility] Comment on above: Result Comment: [...] the transplantcenter.Test developed and characteristics determined by [employer]. See Compliance Statement B: OrdrIt/CSPerformed by [facility],[address] [place] [id number] sel.OrdrIt, Leonid Antonio MD - Lab. Director LIPID PROFILEon 04-29-2017 Cholesterol in HDL mass conc 49 mg/dL Normal 23-92 [facility] Comment on above: Result Comment: Slig ht variation in normal range could be due to gender and/or age.HDL CHOLESTEROL REFERENCE RANGE:20 years and older Cardiovascular Risk> or =60 mg/dL [id number] TO 59 mg/dL Low Risk<40 mg/dL High Risk Performed By: #### 4 1000, 86282, 63942, 33752, 53870, 43001 ####[facility] [address], [facility] Cholesterol in LDL mass conc 52 mg/dL Normal 0-130 [facility] Comment on above: Result Comment: LDL IS A CALCULATIONLDL IS ONLY VALID IF THE TRIG IS LESS THAN 400. Performed By: #### 4 1000, 72259, 59544, 63268, 86565, 96086 ####[facility] [place] [address], [facility] Cholesterol mass conc 122 mg/dL Normal 120-200 [facility] Comment on above: Result Comment: CHOL ESTEROL REFERENCE RANGE:20 YEARS AND OLDER CARDIOVASCULAR RISKLess than 200 mg/dl Low [id number] to 239 mg/dl Borderline [id number] mg/dl and greater High Risk Performed By: #### 4 1000, 09698, 14098, 44977, 87212, 49247 ####[facility] [place] [address], [facility] Cholesterol.total/Cho lesterol in HDL mass ratio 2.5 {ratio} Normal .0-4.5 [facility] Comment on above: Performed By: #### 4 1000, 63698, 18291, 43471, 40900, 02435 ####[facility] [place] [address], [facility] NON-HDL CHOLESTEROL 73 mg/dL Normal [facility] Comment on above: Performed By: #### 4 1000, 82035, 13858, 98372, 14798, 16579 ####[facility] [place] [address], [facility] Triglyceride mass conc 106 mg/dL Normal 40-149 [facility] Comment on above: Result Comment: TRIG LYCERIDE REFERENCE RANGE:20 YEARS AND OLDER CARDIOVASCULAR RISKLESS THAN 150 mg/dl LOW [id number] TO 199 mg/dl BORDERLINE [id number] mg/dl AND GREATER HIGH RISK Performed By: #### 4 1000, 16076, 59607, 93252, 28331, 78210 ####[facility] [place] [address], [facility] VLDL CHOL 21 mg/dL Normal 0-40 [facility] Comment on above: Performed By: #### 4 1000, 04781, 10698, 88574, 55358, 33689 ####[facility] [facility].[address] MAGNESIUM BLOODon 04-29-2017 Magnesium mass conc 2.1 mg/dL Normal 1.9-2.7 [facility] Comment on above: Performed By: #### 4 1000, 16914, 18519, 74192, 82577, 72244 ####[facility] [facility].[address] PHOSPHORUS BLOODon 8 Phosphate mass conc 3.3 mg/dL Normal 2.5-5.0 [facility] Comment on above: Performed By: #### 4 1000, 02254, 08187, 06941, 74247, 86449 ####[facility] [facility].[address] TACROLIMUSon 04-29-2017 Tacrolimus mass conc (Bld) 4.6 ng/mL Low 5.0-20.0 [facility] Comment on above: Result Comment: The [employer] Tacrolimus assay is a delayed one-step immunoassayfor the quantitative determination of tacrolimus in human whole bloodusing the chemiluminescent microparticle immunoassay (CMIA) technologywith flexible assay protocols, referred to as Chemiflex. Performed By: #### 4 1000, 08097, 22352, 32465, 10978, 76337 ####[facility] [facility].[address] URIC ACID BLOODon 04-29-2017 Urate mass conc 4.6 mg/dL Normal 2.3-6.6 [facility] Comment on above: Performed By: #### 4 1000, 40451, 26130, 05259, 34627, 35177 ####[facility] [facility].[address] CBC W/DIFFon 03-27-2017 Basophils Auto #/vol (Bld) 0.2 % Normal 0.0-2.0 [facility] Comment on above: Performed By: #### 4 1000, 46712, 26365, 20581, 58166, 16272 ####[facility] [place] [address], [facility] Eosinophils/100 WBC Auto (Bld) 1.8 % Normal 0.0-5.0 [facility] Comment on above: Performed By: #### 4 1000, 23635, 31026, 35506, 73341, 50247 ####[facility] Erythrocyte distribution width Auto Ratio (RBC) 13.6 % Normal 11.5-16.9 [facility] Comment on above: Performed By: #### 4 1000, 96603, 50124, 67004, 17034, 02834 ####[facility] Hematocrit Auto Volume Fraction (Bld) 47.6 % Normal 36.0-48.0 [facility] Comment on above: Performed By: #### 4 1000, 26636, 06833, 92752, 09599, 13476 ####[facility] Hemoglobin mass conc (Bld) 15.8 g/dL High 12.0-15.0 [facility] Comment on above: Performed By: #### 4 1000, 58946, 62564, 13545, 75172, 53797 ####[facility] [place] [address], [facility] Lymphocytes/100 WBC Auto (Bld) 14.5 % Low 20.0-40.0 [facility] Comment on above: Performed By: #### 4 1000, 03102, 69210, 04921, 71742, 77617 ####[facility] MCH Auto Entitic mass (RBC) 29.0 pg Normal 24.0-32.0 [facility] Comment on above: Performed By: #### 4 1000, 95656, 99245, 94216, 13706, 39047 ####[facility] MCHC Auto mass conc (RBC) 33.3 g/dL Normal 32.0-36.0 [facility] Comment on above: Performed By: #### 4 1000, 88436, 01374, 64805, 22741, 90912 ####[facility] MCV Auto Entitic volume (RBC) 87.4 fL Normal 80.0-100.0 [facility] Comment on above: Performed By: #### 4 1000, 34190, 35158, 91311, 38741, 17752 ####[facility] METHOD Normal RBC Morphology Normal [facility] Comment on above: Performed By: #### 4 1000, 87636, 71744, 36172, 59865, 99677 ####[facility] MONOS 9.6 % High 2-8 [facility] Comment on above: Performed By: #### 4 1000, 16326, 18939, 61684, 14606, 41295 ####[facility] Neutrophils/100 WBC Auto (Bld) 73.9 % High 50-70 [facility] Comment on above: Performed By: #### 4 1000, 08930, 52657, 47366, 55125, 49200 ####[facility] [place] [address], [place] PLAT CNT 228 Thou/mm3 Normal 100-400 [facility] Comment on above: Performed By: #### 4 1000, 68594, 53076, 00265, 34039, 39486 ####[facility] RBC Auto #/vol (Bld) 5.45 mill/mm3 Normal 3.50-5.50 [facility] Comment on above: Performed By: #### 4 1000, 38163, 65905, 70143, 03956, 61788 ####[facility] WBC Auto #/vol (Bld) 6.5 Thou/mm3 Normal 4.0-10.0 [facility] Comment on above: Performed By: #### 4 1000, 03341, 59626, 71877, 36379, 49243 ####[facility] COMP METABOLIC PANELon 03-27 Albumin mass conc 4.7 g/dL Normal 3.5-5.7 [facility] Comment on above: Performed By: #### 4 1000, 23991, 07256, 04100, 99822, 94263 ####[facility] ALKALINE PHOSPH 99 IU/L Normal 34-104 [facility] Comment on above: Performed By: #### 4 1000, 47778, 33545, 41971, 12460, 30019 ####[facility] ALT enzyme act/vol 19 U/L Normal 7-52 [facility] Comment on above: Performed By: #### 4 1000, 49051, 71875, 61515, 70259, 67000 ####[facility] [place] [address], [facility] AST enzyme act/vol 21 U/L Normal 13-39 [facility] Comment on above: Performed By: #### 4 1000, 52858, 11636, 30446, 73465, 78642 ####[facility] [place] [address], [place] Bilirubin mass conc 0.6 mg/dL Normal 0.3-1.0 [facility] Comment on above: Performed By: #### 4 1000, 85390, 74412, 51474, 12988, 52508 ####[facility] [place] [address], [facility] Calcium mass conc 10.2 mg/dL Normal 8.6-10.3 [facility] Comment on above: Performed By: #### 4 1000, 19961, 33658, 40457, 10407, 70625 ####[facility] [place] [address], [place] Chloride molar conc 104 mmol/L Normal 98-107 [facility] Comment on above: Performed By: #### 4 1000, 79496, 60920, 67716, 76830, 03637 ####[facility] [place] [address], [place] CO2 molar conc 28 mmol/L Normal 21-31 [facility] Comment on above: Performed By: #### 4 1000, 88054, 23936, 20795, 28876, 62119 ####[facility] [place] [address], [place] Creatinine mass conc 0.78 mg/dL Normal 0.60-1.20 [facility] Comment on above: Performed By: #### 4 1000, 14514, 66169, 24713, 91296, 94599 ####[facility] [place] [address], [place] GFR/1.73 sq M predicted among blacks MDRD vol rate/area (S/P/Bld) mL/min/{1.73_m2} Normal >60 The [facility] Comment on above: Performed By: #### 4 1000, 10476, 29330, 81717, 50667, 19260 ####[facility] [place] [address], [facility] GFR/1.73 sq M predicted among non-blacks MDRD vol rate/area (S/P/Bld) mL/min/{1.73_m2} Normal >60 The [facility] Comment on above: Performed By: #### 4 1000, 26919, 64118, 28913, 66458, 42222 ####[facility] [place] [address], [facility] Glucose mass conc 87 mg/dL Normal 70-100 [facility] Comment on above: Performed By: #### 4 1000, 86822, 21622, 28484, 14599, 45130 ####[facility] [place] [address], [facility] Potassium molar conc 4.1 mmol/L Normal 3.5-5.1 [facility] Comment on above: Performed By: #### 4 1000, 05383, 80376, 80153, 38869, 53489 ####[facility] [place] [address], [place] Protein mass conc 7.8 g/dL Normal 6.0-8.3 [facility] Comment on above: Performed By: #### 4 1000, 63924, 53930, 35156, 67559, 28788 ####[facility] [place] [address], [place] Sodium molar conc 139 mmol/L Normal 136-145 [facility] Comment on above: Performed By: #### 4 1000, 78160, 17220, 18413, 22017, 38985 ####[facility] [place] [address], [facility] Urea nitrogen mass conc 19 mg/dL Normal 7-25 [facility] Comment on above: Performed By: #### 4 1000, 45154, 94560, 50737, 61175, 10795 ####[facility] DIRECT BILIon 03-27-2017 Bilirubin.direct mass conc 0.1 mg/dL Normal 0.0-0.2 [facility] Comment on above: Performed By: #### 4 1000, 74058, 27193, 61101, 20068, 36208 ####[facility] EVEROLIMUS [id number] 7 EVEROLIMUS 5.3 ng/mL Normal [facility] Comment on above: Result Comment: [...] the transplantcenter.Test developed and characteristics determined by [employer]. See Compliance Statement B: [employer]/CSPerformed by [facility],[address] [place] [address] xar.OrdrIt, Leonid Antonio MD - Lab. Director LIPID PROFILEon 03-27-2017 Cholesterol in HDL mass conc 50 mg/dL Normal 23-92 [facility] Comment on above: Result Comment: Slig ht variation in normal range could be due to gender and/or age.HDL CHOLESTEROL REFERENCE RANGE:20 years and older Cardiovascular Risk> or =60 mg/dL Fusixpdlh32 TO 59 mg/dL Low Risk<40 mg/dL High Risk Performed By: #### 4 1000, 71218, 60058, 24514, 35888, 53665 ####[facility] [place] [address], [facility] Cholesterol in LDL mass conc 66 mg/dL Normal 0-130 [facility] Comment on above: Result Comment: LDL IS A CALCULATIONLDL IS ONLY VALID IF THE TRIG IS LESS THAN 400. Performed By: #### 4 1000, 74374, 38362, 86476, 32480, 82912 ####[facility] [place] [address], [facility] Cholesterol mass conc 147 mg/dL Normal 120-200 [facility] Comment on above: Result Comment: CHOL ESTEROL REFERENCE RANGE:20 YEARS AND OLDER CARDIOVASCULAR RISKLess than 200 mg/dl Low Ejbj968 to 239 mg/dl Borderline Snjz144 mg/dl and greater High Risk Performed By: #### 4 1000, 67338, 41577, 74152, 69925, 94228 ####[facility] [place] [address], [facility] Cholesterol.total/Cho lesterol in HDL mass ratio 2.9 {ratio} Normal .0-4.5 [facility] Comment on above: Performed By: #### 4 1000, 03747, 20901, 17324, 33176, 16200 ####[facility] [place] [address], [place] NON-HDL CHOLESTEROL 97 mg/dL Normal [facility] Comment on above: Performed By: #### 4 1000, 26805, 75248, 32808, 88010, 19999 ####[facility] Triglyceride mass conc 157 mg/dL High 40-149 [facility] Comment on above: Result Comment: TRIG LYCERIDE REFERENCE RANGE:20 YEARS AND OLDER CARDIOVASCULAR RISKLESS THAN 150 mg/dl LOW [id number] TO 199 mg/dl BORDERLINE KEUQ390 mg/dl AND GREATER HIGH RISK Performed By: #### 4 1000, 13533, 54297, 31981, 48811, 72500 ####[facility] VLDL CHOL 31 mg/dL Normal 0-40 [facility] Comment on above: Performed By: #### 4 1000, 14954, 56627, 33367, 63144, 95631 ####[facility] MAGNESIUM BLOODon 03-27-2017 Magnesium mass conc 1.9 mg/dL Normal 1.9-2.7 [facility] Comment on above: Performed By: #### 4 1000, 63694, 85517, 81016, 39683, 08149 ####[facility] PHOSPHORUS BLOODon 7 Phosphate mass conc 3.4 mg/dL Normal 2.5-5.0 [facility] Comment on above: Performed By: #### 4 1000, 34289, 29156, 45016, 02539, 95640 ####[facility] TACROLIMUSon 03-27-2017 Tacrolimus mass conc (Bld) 3.7 ng/mL Low 5.0-20.0 [facility] Comment on above: Result Comment: The [employer] Tacrolimus assay is a delayed one-step immunoassayfor the quantitative determination of tacrolimus in human whole bloodusing the chemiluminescent microparticle immunoassay (CMIA) technologywith flexible assay protocols, referred to as Chemiflex. Performed By: #### 4 1000, 44304, 34195, 84592, 02739, 54944 ####[facility] [facility] [place] [address], [facility] URIC ACID BLOODon 03-27-2017 Urate mass conc 4.1 mg/dL Normal 2.3-6.6 [facility] Comment on above: Performed By: #### 4 1000, 94287, 00410, 44490, 59967, 05430 ####[facility] [facility].[address] BK VIRUS QUANTITATION PCR BL OODon 02-26-2017 BKV QUANT PCR Not detected Normal [facility] Comment on above: Result Comment: Meth od: BK virus was measured by quantitative polymerase chain reactionusing a TaqMan probe targeting the polyomavirus BK SLICING MACHINE FEEDER-1 gene.The lower limit of quantitation of the assay is 500 copies of BK genomeper milliliter of plasma or urine, and any detectable BK DNA below thatlevel is reported as: Detected, <500 copies/ml. Serial BK virusmeasurement can be used to monitor disease activity. (Reference:Kelsie vaughanl. J CLIN MICRO 2004; 42:9022-5594).This test was developed and its performance characteristics determinedby the [facility]. It has not been approvedby the [place] Food and Drug Administration. However, such approval is notrequired for clinical implementation, and test results have been shownto be clinically useful. This laboratory is CAP accredited and CLIAcertified to perform high complexity testing. Performed By: #### 4 1000, 28813, 94931, 14881, 45044, 93839 ####[facility] [facility] [place] [address], [facility] LOG 10 COPIES Not detected Normal [facility] Comment on above: Performed By: #### 4 1000, 45328, 09215, 02194, 72243, 49118 ####[facility] [facility] [place] [address], [facility] CBC W/DIFFon 02-26-2017 Basophils Auto #/vol (Bld) 0.3 % Normal 0.0-2.0 [facility] Comment on above: Performed By: #### 5 0103 ####[facility] [place] [address], [facility] Eosinophils/100 WBC Auto (Bld) 2.2 % Normal 0.0-5.0 [facility] Comment on above: Performed By: #### 5 0103 ####[facility] Erythrocyte distribution width Auto Ratio (RBC) 13.8 % Normal 11.5-16.9 [facility] Comment on above: Performed By: #### 5 0103 ####[facility] [facility].[address] Hematocrit Auto Volume Fraction (Bld) 44.9 % Normal 36.0-48.0 [facility] Comment on above: Performed By: #### 3 ####[facility] [facility].[address] Hemoglobin mass conc (Bld) 15.0 g/dL Normal 12.0-15.0 [facility] Comment on above: Performed By: #### 5 0103 ####[facility] [facility] [place] [address], [facility] Lymphocytes/100 WBC Auto (Bld) 18.9 % Low 20.0-40.0 [facility] Comment on above: Performed By: #### 5 0103 ####[facility] [facility] [place] [address], [facility] MCH Auto Entitic mass (RBC) 28.9 pg Normal 24.0-32.0 [facility] Comment on above: Performed By: #### 5 3 ####[facility] MCHC Auto mass conc (RBC) 33.4 g/dL Normal 32.0-36.0 [facility] Comment on above: Performed By: #### 5 102 ####[facility] MCV Auto Entitic volume (RBC) 86.6 fL Normal 80.0-100.0 [facility] Comment on above: Performed By: #### 5 3 ####[facility] [facility].[address] METHOD Normal RBC Morphology Normal [facility] Comment on above: Performed By: #### 5 102 ####[facility] [facility].[address] MONOS 11.7 % High 2-8 [facility] Comment on above: Performed By: #### 5 102 ####[facility] [facility].[address] Neutrophils/100 WBC Auto (Bld) 66.9 % Normal 50-70 [facility] Comment on above: Performed By: #### 5 3 ####[facility] [facility] [place] [address], [facility] PLAT CNT 230 Thou/mm3 Normal 100-400 [facility] Comment on above: Performed By: #### 5 102 ####[facility] [facility].[address] RBC Auto #/vol (Bld) 5.18 mill/mm3 Normal 3.50-5.50 [facility] Comment on above: Performed By: #### 5 102 ####[facility] [place] [address], [facility] WBC Auto #/vol (Bld) 5.8 Thou/mm3 Normal 4.0-10.0 [facility] Comment on above: Performed By: #### 5 0103 ####[facility] COMP METABOLIC PANELon 02-26 Albumin mass conc 4.7 g/dL Normal 3.5-5.7 [facility] Comment on above: Performed By: #### 4 1000, 85702, 30828, 18832, 69958, 33223 ####[facility] ALKALINE PHOSPH 115 IU/L High 34-104 [facility] Comment on above: Performed By: #### 4 1000, 90868, 75574, 66048, 98015, 59366 ####[facility] ALT enzyme act/vol 18 U/L Normal 7-52 [facility] Comment on above: Performed By: #### 4 1000, 18804, 56532, 11578, 43578, 39668 ####[facility] AST enzyme act/vol 22 U/L Normal 13-39 [facility] Comment on above: Performed By: #### 4 1000, 90794, 68555, 75246, 65244, 30527 ####[facility] [place] [address], [facility] Bilirubin mass conc 0.6 mg/dL Normal 0.3-1.0 [facility] Comment on above: Performed By: #### 4 1000, 16367, 68469, 98195, 61026, 57275 ####[facility] [place] [address], [facility] Calcium mass conc 9.8 mg/dL Normal 8.6-10.3 [facility] Comment on above: Performed By: #### 4 1000, 33566, 16922, 81504, 42973, 95402 ####[facility] [place] [address], [place] Chloride molar conc 103 mmol/L Normal 98-107 [facility] Comment on above: Performed By: #### 4 1000, 07834, 74757, 13699, 07739, 33723 ####[facility] [place] [address], [place] CO2 molar conc 29 mmol/L Normal 21-31 [facility] Comment on above: Performed By: #### 4 1000, 98964, 29116, 25501, 38678, 51500 ####[facility] [place] [address], [facility] Creatinine mass conc 0.78 mg/dL Normal 0.60-1.20 [facility] Comment on above: Performed By: #### 4 1000, 41153, 52633, 99319, 66745, 05607 ####[facility] [place] [address], [place] GFR/1.73 sq M predicted among blacks MDRD vol rate/area (S/P/Bld) mL/min/{1.73_m2} Normal >60 The [facility] Comment on above: Performed By: #### 4 1000, 37900, 82127, 82938, 23325, 05831 ####[facility] [place] [address], [place] GFR/1.73 sq M predicted among non-blacks MDRD vol rate/area (S/P/Bld) mL/min/{1.73_m2} Normal >60 [facility] Comment on above: Performed By: #### 4 1000, 18231, 80422, 14492, 09164, 38253 ####[facility] [place] [address], [place] Glucose mass conc 94 mg/dL Normal 70-100 [facility] Comment on above: Performed By: #### 4 1000, 77753, 03989, 66925, 24574, 16917 ####[facility] Potassium molar conc 3.8 mmol/L Normal 3.5-5.1 [facility] Comment on above: Performed By: #### 4 1000, 03782, 78401, 30278, 38124, 88688 ####[facility] [facility] Protein mass conc 7.4 g/dL Normal 6.0-8.3 The [facility] Comment on above: Performed By: #### 4 1000, 23066, 78444, 89272, 56943, 74684 ####[facility] Sodium molar conc 136 mmol/L Normal 136-145 [facility] Comment on above: Performed By: #### 4 1000, 64706, 26053, 87504, 90033, 30284 ####[facility] Urea nitrogen mass conc 19 mg/dL Normal 7-25 [facility] Comment on above: Performed By: #### 4 1000, 99797, 97753, 90364, 34155, 69078 ####[facility] DIRECT BILIon 02-26-2017 Bilirubin.direct mass conc 0.1 mg/dL Normal 0.0-0.2 [facility] Comment on above: Performed By: #### 4 1000, 39224, 94593, 86116, 27183, 39672 ####[facility] [place] [address], [facility] EVEROLIMUS [id number] 7 EVEROLIMUS 5.9 ng/mL Normal [facility] Comment on above: Result Comment: [...] the transplantcenter.Test developed and characteristics determined by [employer]. See Compliance Statement B: OrdrIt/CSPerformed by [employer],[address] [place] [id number] [employer], Leonid Antonio MD - Lab. Director HEMOGLOBIN A1Con 02-26-2017 Glucose mass conc 108 mg/dL Normal 70-126 [facility] Comment on above: Performed By: #### 4 9967, 45153 ####[facility] [facility] [place] [address], [facility] Hemoglobin A1c/Hemoglobin.total mass fraction (Bld) 5.4 % Normal 4.0-6.0 The [facility] Comment on above: Performed By: #### 4 5603, 39972 ####[facility] [facility] [place] [address], [facility] LIPID PROFILEon 02-26-2017 Cholesterol in HDL mass conc 54 mg/dL Normal 23-92 [facility] Comment on above: Result Comment: Slig ht variation in normal range could be due to gender and/or age.HDL CHOLESTEROL REFERENCE RANGE:20 years and older Cardiovascular Risk> or =60 mg/dL [id number] TO 59 mg/dL Low Risk<40 mg/dL High Risk Performed By: #### 4 1000, 37664, 98443, 62936, 55464, 46140 ####[facility] [place] [address], [place] Cholesterol in LDL mass conc 70 mg/dL Normal 0-130 [facility] Comment on above: Result Comment: LDL IS A CALCULATIONLDL IS ONLY VALID IF THE TRIG IS LESS THAN 400. Performed By: #### 4 1000, 30647, 67514, 74472, 91738, 99505 ####[facility] [place] [address], [facility] Cholesterol mass conc 144 mg/dL Normal 120-200 [facility] Comment on above: Result Comment: CHOL ESTEROL REFERENCE RANGE:20 YEARS AND OLDER CARDIOVASCULAR RISKLess than 200 mg/dl Low Qndg382 to 239 mg/dl Borderline Rrqy171 mg/dl and greater High Risk Performed By: #### 4 1000, 87289, 74982, 40573, 79241, 06086 ####[facility] [place] [address], [facility] Cholesterol.total/Cho lesterol in HDL mass ratio 2.7 {ratio} Normal .0-4.5 [facility] Comment on above: Performed By: #### 4 1000, 86988, 58921, 67329, 25168, 63989 ####[facility] [place] [address], [place] NON-HDL CHOLESTEROL 90 mg/dL Normal The [facility] Comment on above: Performed By: #### 4 1000, 86727, 90477, 71266, 58986, 22803 ####[facility] [place] [address], [place] Triglyceride mass conc 101 mg/dL Normal 40-149 [facility] Comment on above: Result Comment: TRIG LYCERIDE REFERENCE RANGE:20 YEARS AND OLDER CARDIOVASCULAR RISKLESS THAN 150 mg/dl LOW [id number] TO 199 mg/dl BORDERLINE [id number] mg/dl AND GREATER HIGH RISK Performed By: #### 4 1000, 77273, 37306, 58927, 21011, 03636 ####[facility] VLDL CHOL 20 mg/dL Normal 0-40 [facility] Comment on above: Performed By: #### 4 1000, 66790, 74101, 89007, 89333, 75351 ####[facility] [facility] MAGNESIUM BLOODon 02-26-2017 Magnesium mass conc 1.9 mg/dL Normal 1.9-2.7 The [facility] Comment on above: Performed By: #### 4 1000, 16578, 42184, 57043, 41563, 05095 ####[facility] [facility] PHOSPHORUS BLOODon 7 Phosphate mass conc 4.1 mg/dL Normal 2.5-5.0 The [facility] Comment on above: Performed By: #### 4 1000, 62011, 18755, 16432, 37609, 12089 ####[facility] [facility] TACROLIMUSon 02-26-2017 Tacrolimus mass conc (Bld) 4.2 ng/mL Low 5.0-20.0 [facility] Comment on above: Result Comment: The [employer] Tacrolimus assay is a delayed one-step immunoassayfor the quantitative determination of tacrolimus in human whole bloodusing the chemiluminescent microparticle immunoassay (CMIA) technologywith flexible assay protocols, referred to as Chemiflex. Performed By: #### 4 6447, 35097 ####[facility] URIC ACID BLOODon 02-26-2017 Urate mass conc 4.3 mg/dL Normal 2.3-6.6 The [facility] Comment on above: Performed By: #### 4 1000, 11944, 36564, 83123, 91659, 46479 ####[facility] Vital Signs Date Time Vital Sign Value Performing Clinician Facility 06-01-2024 13:05-0500 Body height 152.4 cm Ester Hemmer PA Work Phone: [facility] 06-01-2024 13:05-0500 Body mass index (BMI) [Ratio] 24.65 kg/m2 Ester Hemmer PA Work Phone: [facility] 06-01-2024 13:05-0500 Body temperature 98.29 [degF] Ester Hemmer PA Work Phone: [facility] 06-01-2024 13:05-0500 Body weight 57.24 kg Ester Hemmer PA Work Phone: [facility] 06-01-2024 13:05-0500 Diastolic blood pressure 74 mm[Hg] Ester Hemmer PA Work Phone: [facility] 06-01-2024 13:05-0500 Heart rate 69 /min Ester Hemmer PA Work Phone: [facility] 06-01-2024 13:05-0500 Respiratory rate 16 /min Ester Hemmer PA Work Phone: [facility] 06-01-2024 13:05-0500 SaO2% (BldA) [Mass fraction] 95 % Ester Hemmer PA Work Phone: [facility] 06-01-2024 13:05-0500 Systolic blood pressure 112 mm[Hg] Ester Hemmer PA Work Phone: [facility] 08-30-2023 09:22-0400 Body height 182.88 cm [facility] 08-30-2023 09:22-0400 Body mass index (BMI) [Ratio] 17.9 kg/m2 [facility] 08-30-2023 09:22-0400 Body temperature 99.8 [degF] [facility] 08-30-2023 09:22-0400 Body weight 59.87 kg [facility] 08-30-2023 09:22-0400 Diastolic blood pressure 73 mm[Hg] [facility] 08-30-2023 09:22-0400 Heart rate 67 /min [facility] 08-30-2023 09:22-0400 SaO2% (BldA) [Mass fraction] 95 % [facility] 08-30-2023 09:22-0400 Systolic blood pressure 111 mm[Hg] [facility] 03-27-2023 11:30-0500 Body height 152.4 cm Cathy Bella Other [employer] [employer] Other 03-27-2023 11:30-0500 Body mass index (BMI) [Ratio] 25.39 kg/m2 Cathy Bella Other [employer] Other 03-27-2023 11:30-0500 Body temperature 97.5 [degF] Cathy Bella Other [employer] Other 03-27-2023 11:30-0500 Body weight 58.97 kg Cathy Bella Other [employer] Other 03-27-2023 11:30-0500 Respiratory rate 18 /min Cathy Bella Other [employer] Other 03-27-2023 11:30-0500 SaO2% (BldA) [Mass fraction] 96 % Cathy Bella Other [employer] Other 09-21-2022 09:00-0400 Body height 152.4 cm Martha Guevara Other [employer] Other 09-21-2022 09:00-0400 Body mass index (BMI) [Ratio] 22.46 kg/m2 Martha Guevara Other [employer] Other 09-21-2022 09:00-0400 Body temperature 97.6 [degF] Martha Guevara Other [employer] Other 09-21-2022 09:00-0400 Body weight 52.16 kg Martha Guevara Other [employer] Other 09-21-2022 09:00-0400 Diastolic blood pressure 70 mm[Hg] Martha Guevara Other [employer] Other 09-21-2022 09:00-0400 Respiratory rate 18 /min Martha Guevara Other [employer] Other 09-21-2022 09:00-0400 SaO2% (BldA) [Mass fraction] 96 % Martha Guevara Other [employer] Other 09-21-2022 09:00-0400 Systolic blood pressure 107 mm[Hg] Martha Guevara Other [employer] Other 01-12-2022 13:55-0400 Body height 152.4 cm Cathy Bella Other [employer] Other 01-12-2022 13:55-0400 Body mass index (BMI) [Ratio] 19.53 kg/m2 Cathy Bella Other [employer] Other 01-12-2022 13:55-0400 Body temperature 96.9 [degF] Cathy Bella Other [employer] Other 01-12-2022 13:55-0400 Body weight 45.36 kg Cathy Shayne Other [employer] Other 01-12-2022 13:55-0400 Respiratory rate 18 /min Cathy Bella Other [employer] Other 01-12-2022 13:55-0400 SaO2% (BldA) [Mass fraction] 97 % Cathy Bella Other [employer] Other 12-28-2021 10:20-0400 Body height 152.4 cm Martha Guevara Other [employer] Other 12-28-2021 10:20-0400 Body mass index (BMI) [Ratio] 21.48 kg/m2 Martha Smithmond Other [employer] Other 12-28-2021 10:20-0400 Body temperature 98 [degF] Martha Smithmond Other [employer] Other 12-28-2021 10:20-0400 Body weight 49.9 kg Martha Smithmond Other [employer] Other 12-28-2021 10:20-0400 Respiratory rate 18 /min Martha Smithmond Other [employer] Other 12-28-2021 10:20-0400 SaO2% (BldA) [Mass fraction] 97 % Martha Paola Other [employer] Other 12-25-2021 10:05-0400 Body height 152.4 cm Cathy Bella Other [employer] Other 12-25-2021 10:05-0400 Body mass index (BMI) [Ratio] 21.48 kg/m2 Cathy Bella Other [employer] Other 12-25-2021 10:05-0400 Body temperature 96 [degF] Cathy Bella Other [employer] Other 12-25-2021 10:05-0400 Body weight 49.9 kg Cathy Bella Other [employer] Other 12-25-2021 10:05-0400 Respiratory rate 18 /min Cathy Bella Other [employer] Other 12-25-2021 10:05-0400 SaO2% (BldA) [Mass fraction] 97 % Cathy Bella Other [employer] Other 10-27-2021 12:35-0400 Body height 152.4 cm Cathy Bella Other [employer] Other 10-27-2021 12:35-0400 Body mass index (BMI) [Ratio] 22.85 kg/m2 Cathy Bella Other [employer] Other 10-27-2021 12:35-0400 Body weight 53.07 kg Cathy Bella Other [employer] Other 10-27-2021 12:35-0400 Diastolic blood pressure 87 mm[Hg] Cathy Bella Other [employer] Other 10-27-2021 12:35-0400 SaO2% (BldA) [Mass fraction] 98 % Cathy Bella Other [employer] Other 10-27-2021 12:35-0400 Systolic blood pressure 130 mm[Hg] Cathy Bella Other [employer] Other 08-14-2021 10:40-0400 Body height 152.4 cm Martha Paola Other [employer] Other 08-14-2021 10:40-0400 Body mass index (BMI) [Ratio] 22.46 kg/m2 Martha Smithmond Other [employer] Other 08-14-2021 10:40-0400 Body temperature 96.7 [degF] Martha Smithmond Other [employer] Other 08-14-2021 10:40-0400 Body weight 52.16 kg Martha Smithmond Other [employer] Other 08-14-2021 10:40-0400 Diastolic blood pressure 68 mm[Hg] Martha Paola Other [employer] Other 08-14-2021 10:40-0400 Respiratory rate 20 /min Martha Paola Other [employer] Other 08-14-2021 10:40-0400 SaO2% (BldA) [Mass fraction] 98 % Martha Paola Other [employer] Other 08-14-2021 10:40-0400 Systolic blood pressure 144 mm[Hg] Martha Paola Other [employer] Other Encounters Encounter Date Encounter Type Care Provider Facility Start: 06-01-2024 End: 06-01-2024 Jay Puenteen M Hemmer PA Work Phone: [facility] Start: 06-01-2024 End: 06-01-2024 Bamboo flowsheet Ester STEIN Work Phone: [facility] Start: 06-01-2024 End: 06-01-2024 Patient encounter procedure Ester STEIN Work Phone: [facility] Comment on above: Medicare annual well ness visit, subsequent (Primary Dx); ACP (advance care planning); Acute non-recurrent pansinusitis; Acute bronchitis, unspecified organism; Primary hypertension ([facility]/HCC); PKD (polycystic kidney disease); Joint contracture of foot, unspecified laterality; Immunosuppression ([facility]/HCC); Abnormal complete blood count; Current moderate episode of major depressive disorder without prior episode (HCC) (CMS/[facility]); Elevated alkaline phosphatase level; Estrogen deficiency; Generalized anxiety disorder (CMS/HCC); Hypercholesteremia ([facility]/HCC); Hypomagnesemia; Renal transplant recipient ([facility]) Start: 06-01-2024 End: 06-01-2024 ambulatory ESTER PADILLA Not Available Start: 05-21-2024 End: 05-21-2024 Clinisync Result Encounter Generic External Data Provider [facility] Unsolicited Start: 05-21-2024 End: 05-21-2024 Clinisync Result Encounter Generic External Data Provider [facility] Unsolicited Start: 04-19-2024 End: 04-19-2024 Clinisync Result Encounter Generic External Data Provider [facility] Unsolicited Start: 04-19-2024 End: 04-19-2024 Clinisync Result Encounter Generic External Data Provider [facility] External [facility] Unsolicited Start: 04-01-2024 End: 04-01-2024 ambulatory [facility] Start: 03-19-2024 End: 03-19-2024 Clinisync Result Encounter [...] Unsolicited Start: 09-23-2023 End: 09-23-2023 ambulatory VIRGIL HAYNES [facility] Start: 09-02-2023 End: 09-02-2023 ambulatory ESTER PADILLA Not Available Start: 08-30-2023 End: 08-30-2023 ambulatory [facility] Work Phone: Start: 08-30-2023 End: 08-30-2023 Patient encounter procedure [facility] Work Phone: Start: 03-27-2023 End: 03-27-2023 ambulatory Cathy Bella Other [employer] Other Start: 03-27-2023 Office outpatient vi sit 25 minutes Cathy Bella [facility] Start: 09-21-2022 End: 09-21-2022 ambulatory Martha Guevara Other [employer] Other Start: 09-21-2022 Office outpatient vi sit 15 minutes Martha Guevara [facility] [...] 01-12-2022 End: 01-12-2022 ambulatory Cathy Bella Other [employer] Other Start: 01-12-2022 Office outpatient vi sit 15 minutes Cathy Bella [facility] Start: 01-07-2022 End: 01-07-2022 ambulatory IASTU GUAMAN . Facility:[facility] Start: 01-03-2022 End: 01-04-[address] VIRGIL SWIFT Facility:[facility] Start: 12-28-2021 End: 12-28-2021 ambulatory Martha Guevara Other [employer] Other Start: 12-28-2021 Office outpatient vi sit 15 minutes Martha Guevara [facility] Start: 12-25-2021 End: 12-25-2021 ambulatory Cathy Bella Other [employer] Other Start: 12-25-2021 Office outpatient vi sit 25 minutes Cathy Bella [facility] Start: 12-05-2021 End: 12-06-[address] DOCTOR CERNA Facility:[facility] Start: 11-07-2021 End: 11-08-[address] DOCTOR CERNA Facility:[facility] Start: 10-27-2021 End: 10-27-2021 ambulatory Cathy Bella Other [facility] [employer] Other Start: 10-27-2021 Office outpatient vi sit 15 minutes Cathy Bella [facility] Start: 10-15-2021 End: 10-16-[address] DOCTOR MISC Facility:[facility] Start: 10-08-2021 End: 10-09-[address] DOCTOR MISC Facility:[facility] Start: 09-10-2021 End: 09-11-[address] DOCTOR MISC Facility:[facility] Start: 08-14-2021 End: 08-14-2021 ambulatory Martha Guevara Other [employer] Other Start: 08-14-2021 Office outpatient vi sit 15 minutes Martha Guevara [facility] Start: 12-31-2017 End: 01-01-2018 Patient encounter VIRGIL HAYNES Facility:[facility] Start: 12-25-2017 End: 12-26-2017 Patient encounter ROSALINDA ROSENBAUM Facility:[facility] Start: 10-30-2017 End: 10-31-2017 Patient encounter ROSALINDA ROSENBAUM Facility:[facility] Start: 10-23-2017 End: 10-24-2017 Patient encounter ROSALINDA ROSENBAUM Facility:[facility] Start: 09-25-2017 End: 09-26-2017 Patient encounter ROSALINDA ROSENBAUM Facility:[facility] Start: 08-26-2017 End: 08-27-2017 Patient encounter ROSALINDA ROSENBAUM Facility:[facility] Start: 07-23-2017 End: 07-24-2017 Patient encounter ROSALINDA ROSENBAUM Facility:[facility] Start: 06-20-2017 End: 06-21-2017 Patient encounter ROSALINDA ROSENBAUM Facility:[facility] Start: 05-27-2017 End: 05-28-2017 Patient encounter ROSALINDA ROSENBAUM Facility:[facility] Start: 04-29-2017 End: 04-30-2017 Patient encounter ROSALINDA ROSENBAUM Facility:[facility] Start: 03-27-2017 End: 03-28-2017 Patient encounter ROSALINDA ROSENBAUM Facility:[facility] Start: 02-26-2017 End: 02-27-2017 Patient encounter DOE BRIDGES Facility:[facility] Procedures Date Procedure Procedure Detail Performing Clinician Start: 02-21-2025 ALL CBC WITH AUTO DIFF Generic External Data Provider Start: 04-19-2024 ALL CBC WITH AUTO DIFF [...] Start: 02-13-2024 [facility] CMP (CMP) (FOR REMOTE [facility] USE) Generic External Data Provider Start: [...] Generic Pr ovider Start: 08-14-2021 Piperacillin/tazobactam Martha Paola Other Start: 07-28-2017 Colonoscopy Generic Pr ovider History of renal transplant Renal transplant recipient ([facility]) Ester STEIN Work Phone: Plan of Treatment Date Care Activity Detail Author Start: 07-29-2027 Screening for malign ant neoplasm of colon [facility] Start: 02-14-2026 Screening for malign ant neoplasm of colon FIT-DNA [facility] Start: 06-01-2025 Medicare Annual Well ness (AWV) Medicare Annual Wellness (AWV) [facility] Start: 02-10-2025 Screening for malign ant neoplasm of breast Mammogram [facility] Start: 06-01-2024 End: 06-01-2024 Patient encounter procedure 06/01/2024 1:00 PM EST Office Visit [facility] [address] [place] [id number] Ester Padilla PA [address] [place] [address] Arrived [facility] Comment on above: Arrived Start: 04-02-2024 Medicare Annual Well ness (AWV) Medicare Annual Wellness (AWV) [facility] Start: 11-30-2023 Influenza vaccination Influenza Vacc ine (#1) [facility] Start: 07-24-2023 Screening for malign ant neoplasm of breast Mammogram [facility] Start: 1961 Pneumococcal Vaccine : 65+ Years (1 of 2 - PCV) Pneumococcal Vaccine: 65+ Years (1 of 2 - PCV) [facility] Start: 1955 Screening for malign ant neoplasm of colon [facility] Immunizations Immunization Date Immunization Notes Care Provider Fa [facility] 02-19-2024 influenza, injectabl e, madin karey canine kidney, preservative free Ester STEIN Work Phone: [facility] 01-10-2023 Influenza, Seasonal, Quadrivalent, Adjuvanted Generic Provider [facility] 01-10-2023 influenza virus vaccine, unspecified formulation Generic Provider [facility] 09-16-2022 zoster vaccine recombinant Generic Provider [facility] 07-22-2022 zoster vaccine recombinant Generic Provider [facility] 02-19-2022 Influenza, injectabl e, Madin Karey Canine Kidney, preservative free, quadrivalent Generic Provider [facility] 02-19-2022 SARS-COV-2 (COVID-19 ) vaccine, mRNA, spike protein, LNP, bivalent, PF Generic Provider [facility] 01-09-2021 influenza, seasonal, injectable Generic Provider [facility] 12-12-2019 influenza, injectabl e, quadrivalent, preservative free Generic Provider [facility] 12-26-2018 influenza, injectabl e, quadrivalent, contains preservative Generic Provider [facility] 01-21-2018 influenza, injectabl e, quadrivalent, contains preservative Generic Provider [facility] 12-29-2017 influenza, injectabl e, quadrivalent, preservative free Generic Provider [facility] 12-20-2016 influenza, injectabl e, quadrivalent, preservative free Generic Provider [facility] 12-02-2016 seasonal influenza, intradermal, preservative free Generic Provider [facility] 01-16-2015 influenza, injectabl e, quadrivalent, preservative free Generic Provider [facility] 03-16-2009 influenza virus vaccine, split virus (incl. purified surface antigen) Martha Paola Other [facility] [employer] Other 03-16-2009 influenza virus vaccine, unspecified formulation [facility] Payers Date Payer Category Payer Medicare [facility] MEDICARE ADVANTAGE [facility] MEDICARE ADVANTAGE [id number] 2021-Present [address] [place] [id number] 2021 Medicare (Managed Care) [facility] Member Subscriber Plan / Payer (Effective 2021-Present) Name: Tanika Grimm Relation to Subscriber: Self Name: Tanika Grimm Payer ID: Not on file Group ID: [id number] Type: Not on file Address: [address] [id number] 1958 [facility] [id number] [id number] 1959 Self-pay 1959 Unknown [id number] 1956 Unknown [id number] 2.16.840.1.916260.3.579. 2.647 1956 Unknown [id number] 2.16.840.1.950573.3.579. 2.647 1956 Unknown [id number] 2.16.840.1.216531.3.579. 2.647 1956 Unknown [id number] 2.16.840.1.883900.3.579. 2.647 1956 Unknown [id number] 2.16.840.1.082725.3.579. 2.647 1956 Unknown [id number] 2.16.840.1.648397.3.579. 2.647 1956 Unknown [id number] 2.16.840.1.298344.3.579. 2.647 1956 Unknown [id number] 2.16.840.1.902075.3.579. 2.647 1956 Unknown [id number] 2.16.840.1.829880.3.579. 2.647 1956 Unknown [id number] 2.16.840.1.503721.3.579. 2.647 1956 Unknown [id number] 2.16.840.1.899965.3.579. 2.647 1956 Unknown [id number] 2.16.840.1.814229.3.579. 2.647 1956 Unknown [id number] 2.16.840.1.054218.3.579. 2.59 1956 Unknown [id number] 2.16.840.1.580119.3.579. 2.59 1956 Unknown [id number] 2.16.840.1.096795.3.579. 2.593 1956 Unknown [id number] 2.16.840.1.553822.3.579. 2.59 1956 Unknown [id number] 2.16.840.1.759188.3.579. 2.59 1956 Unknown [id number] 2.16.840.1.007625.3.579. 2.59 1956 Unknown [id number] 2.16.840.1.999633.3.579. 2.593 1956 Unknown [id number] 2.16.840.1.177416.3.579. 2.59 1956 Unknown [id number] 2.16.840.1.104698.3.579. 2.593 1956 Unknown [id number] 2.16.840.1.349944.3.579. 2.593 1956 Unknown [id number] 2.16.840.1.515840.3.579. 2.593 1956 Unknown [id number] 2.16.840.1.910653.3.579. 2.593 1956 Unknown [id number] 2.16.840.1.315044.3.579. 2.593 1956 Unknown [id number] 2.16.840.1.199254.3.579. 2.593 1956 Unknown [id number] 2.16.840.1.332695.3.579. 2.593 1956 Unknown [id number] 2.16.840.1.343600.3.579. 2.1259 1956 Unknown [id number] 2.16.840.1.453611.3.579. 2.1259 Unknown [id number] 2.16.840.1.666866.3.579. 2.593 Unknown Amy MCGREGOR/DAYSI [id number] Social History Date Type Detail Facility Unknown if ever smoked [facility] Other Start: 09-02-2023 End: 06-01-2024 Sex Assigned At [employer] Other Start: 01-29-2023 End: 08-30-2023 Tobacco smoking status NHIS Never smoked tobacco (finding) [facility] Start: 1955 Sex Assigned At Female F [facility] Start: 01-29-2023 Tobacco use and exposure Smokeless tobacco non-user [facility] Start: 09-02-2023 End: 06-01-2024 Alcoholic beverage intake Lifetime non-drinker (finding) [facility] Start: 09-02-2023 End: 06-01-2024 History of Social function [facility] Start: 1955 Sex assigned at Not on file N [facility] Clinical Notes 11-10-2007 to 06-01-2024 SARITA Mcrae - 06/01/2024 1:00 PM EST Note Date & Type Note Facility 06-01-2024 History of Present illness Narrative Images from the original note were not included. HPI URI Additional comments: Admits sinus pressure/pain, headaches, nasal congestion, runny nose (white and green mucous), sneezing, post nasal drainage, bilateral ear discomfort, cough (dry). She has been sick for 5 days. She has been taking Tylenol. She feels she is getting worse. Last edited by Anushka Weinstein LPN on 06/01/2024 1:05 PM. Subjective Patient ID: Tanika Grimm is a 68 y.o. female who presents for Medicare Wellness and URI symptoms. Medicare Wellness Over the past 2 weeks, how often have you been bothered by any of the following problems? Little interest or pleasure in doing things: Not at all Feeling down, depressed, or hopeless: Not at all Patient Health Questionnaire-2 Score: 0 Over the past 2 weeks, how often have you been bothered by any of the following problems? Trouble falling or staying asleep, or sleeping too much: Not at all Feeling tired or having little energy: Not at all Poor appetite or overeating: Not at all Feeling bad about yourself - or that you are a failure or have let yourself or your family down: Not at all Trouble concentrating on things, such as reading the newspaper or watching television: Not at all Moving or speaking so slowly that other people could have noticed? Or the opposite - being so fidgety or restless that you have been moving around a lot more than usual.: Not at all Thoughts that you would be better off or hurting yourself in some way: Not at all Patient Health Questionnaire-9 Score: 0 Duong Fall Risk History of Falling, Immediate or Within 3 Months: No Health Risk Assessment Form Do you need help eating, bathing, using the toilet, dressing, or getting around your home?: No Can you prepare your own meals?: Yes Can you do your own housework without help?: Yes Can you shop for groceries or clothes without help?: Yes Do you exercise for about 20 minutes 3 or more days a week?: Yes How confident are you that you can control and manage most of your health problems?: Very confident Can you mange your money, credit cards and accounts, pay bills and taxes?: Yes Vision Screening: Yes, no gross abnormalities Hearing Screening: Yes, no gross abnormalities Cognitive Screening Self Assessment: No overt cognitive deficiency is apparent by direct observation Three Word Registration: Leader, Season, Table Clock Drawing: Normal Clock - 2 Three Word Recall: 2/3 words correct - 2 Total Score (0-5 Points): 4 Pain Assessment Pain Score: 4 Advance Care Planning Do you have a living will?: Yes Do you have a medical power of real estate attorney?: Yes Current Outpatient Medications on File Prior to Visit Medication Sig Dispense Refill amLODIPine (Norvasc) 5 MG tablet Take 5 mg by mouth in the morning. atorvastatin (Lipitor) 20 MG tablet Take 20 mg by mouth in the morning. baclofen (Lioresal) 10 MG tablet Take 1 tablet (10 mg) by mouth 2 (two) times a day as needed for muscle spasms 60 tablet 5 cyanocobalamin (Vitamin B-12) 100 MCG tablet Take 100 mcg by mouth in the morning. Ferrous Fumarate 325 (106 Fe) MG tablet Daily magnesium oxide 400 MG capsule Take by mouth every 12 (twelve) hours. mycophenolate (Myfortic) 180 MG EC tablet Take 3 tablets by mouth in the morning and 3 tablets before bedtime. nystatin (Mycostatin) 285101 UNIT/ML suspension SWISH AND SWALLOW 5 MLS ORALLY 4 TIMES A DAY FOR 10 DAYS 60 mL 1 omega-3 (fish oil) 435 MG capsule 1 capsule 1 (one) time each day at the same time. PARoxetine (Paxil) 20 MG tablet Take 1 tablet (20 mg) by mouth in the morning. 90 tablet 3 Potassium 99 MG tablet 1 (one) time each day at the same time. spironolactone (Aldactone) 25 MG tablet Take 25 mg by mouth in the morning. tacrolimus (Prograf) 0.5 MG capsule Take by mouth 2 (two) times a day. No current facility-administered medications on file prior to visit. I have reviewed and reconciled the history and medication list with the patient today. No Known Allergies Social History Tobacco Use Smoking status: Never Smokeless tobacco: Never Vaping Use Vaping status: Never Used Substance Use Topics Alcohol use: Never Drug use: Never Family History Problem Relation Name Age of Onset Diabetes Mother Heart disease Mother Hypertension Mother Hypertension Father Kidney failure Brother Past Medical History: Diagnosis Date Acute laryngitis 01/03/2022 COVID-19 01/03/2022 pneumonia Elevated alkaline phosphatase level 01/29/2023 History of stress test Hypertension ([facility]) Joint contracture of foot, unspecified laterality 01/29/2023 Polycystic kidney 2013 Renal transplant recipient ([facility]) 01/29/2023 Past Surgical History: Procedure Laterality Date CYSTOSCOPY 2013 STRESS TEST EXERCISE 2013 KIDNEY TRANSPLANT 2015 Visit Vitals BP 112/74 Pulse 69 Temp 98.3 F Resp 16 Ht 5' Wt 126 lb 3.2 oz SpO2 95% BMI 24.65 kg/m Smoking Status Never BSA 1.56 m Review of Systems Constitutional: Negative for chills, fatigue and fever. HENT: Positive for congestion, ear pain, postnasal drip, rhinorrhea, sinus pressure, sinus pain and sneezing. Negative for sore throat. Eyes: Negative for pain, discharge and visual disturbance. Respiratory: Positive for cough. Negative for shortness of breath and wheezing. Cardiovascular: Negative for chest pain, palpitations and leg swelling. Gastrointestinal: Negative for abdominal pain, constipation, diarrhea, nausea and vomiting. Genitourinary: Negative for difficulty urinating, dysuria and frequency. Musculoskeletal: Negative for arthralgias and back pain. Skin: Negative for rash. Neurological: Positive for headaches. Negative for dizziness and numbness. Psychiatric/Behavioral: Negative for sleep disturbance. The patient is not nervous/anxious. Objective Physical Exam Constitutional: General: She is not in acute distress. Appearance: She is well-developed. She is ill-appearing (mildly). HENT: Head: Normocephalic and atraumatic. Right Ear: Tympanic membrane normal. Left Ear: Tympanic membrane normal. Ears: Comments: Mild cerumen in bilateral canals. Nose: Rhinorrhea present. Right Sinus: Maxillary sinus tenderness and frontal sinus tenderness present. Left Sinus: Maxillary sinus tenderness and frontal sinus tenderness present. Mouth/Throat: Mouth: Mucous membranes are moist. Pharynx: Posterior oropharyngeal erythema (mild) present. Eyes: General: No scleral icterus. Extraocular Movements: Extraocular movements intact. Conjunctiva/sclera: Conjunctivae normal. Pupils: Pupils are equal, round, and reactive to light. Neck: Vascular: No carotid bruit. Cardiovascular: Rate and Rhythm: Normal rate and regular rhythm. Heart sounds: Normal heart sounds. No murmur heard. Pulmonary: Effort: Pulmonary effort is normal. No respiratory distress. Breath sounds: Normal breath sounds. No wheezing, rhonchi or rales. Comments: Dry cough with deep inspiration Abdominal: General: Bowel sounds are normal. There is no distension. Palpations: Abdomen is soft. Tenderness: There is no abdominal tenderness. There is no guarding. Musculoskeletal: General: No swelling or deformity. Normal range of motion. Cervical back: Normal range of motion and neck supple. No tenderness. Skin: General: Skin is warm and dry. Capillary Refill: Capillary refill takes less than 2 seconds. Findings: No rash. Neurological: General: No focal deficit present. Mental Status: She is alert and oriented to person, place, and time. Cranial Nerves: No cranial nerve deficit. Sensory: No sensory deficit. Motor: No weakness. Gait: Gait normal. Deep Tendon Reflexes: Reflexes normal. Psychiatric: Mood and Affect: Mood normal. Behavior: Behavior normal. Thought Content: Thought content normal. Judgment: Judgment normal. Assessment & Plan 1. Medicare annual wellness visit, subsequent (Primary) Reviewed all relevant preventative screenings with the patient in detail. Medicare Wellness form completed and will be scanned into patient's chart. All needed testing was ordered. Will continue with yearly Medicare Wellness exams. 2. ACP (advance care planning) Patient willing to discuss ACP. Pt has Living Will and DPOA in place. 3. Acute non-recurrent pansinusitis Start the Augmentin as prescribed. Reviewed potential s/e with patient. Encouraged probiotic while on antibiotic. Increase water intake, get plenty of rest. Can take OTC Tylenol prn. Follow up if no improvement in one week. - amoxicillin-clavulanate (Augmentin) 875-125 MG tablet; Take 1 tablet (875 mg) by mouth in the morning and 1 tablet (875 mg) in the evening. Take with meals. Do all this for 7 days. Dispense: 14 tablet; Refill: 0 4. Acute bronchitis, unspecified organism Can take prescription cough medication as needed. Cautioned it may cause drowsiness. - guaiFENesin-codeine (Robitussin-AC) 100-10 MG/5ML syrup; Take 10 mL by mouth every 6 (six) hours if needed for cough for up to 7 days Dispense: 280 mL; Refill: 0 5. Primary hypertension (CMS/HCC) Patient's blood pressure is currently well controlled. Continue with current medications and I will continue to monitor. Goal BP remains less than 130/80. 6. PKD (polycystic kidney disease) The patient is seeing a durable medical equipment technician for this condition, treatment is deferred to that specialist. Correspondence from that specialist and any available testing were reviewed during today's visit. 7. Joint contracture of foot, unspecified laterality This is a chronic medical condition that is stable since last assessment. No changes in treatment are suggested at this time. 8. Immunosuppression ([facility]/HCC) The patient is seeing a durable medical equipment technician for this condition, treatment is deferred to that specialist. Correspondence from that specialist and any available testing were reviewed during today's visit. 9. Abnormal complete blood count The patient is seeing a durable medical equipment technician for this condition, treatment is deferred to that specialist. Correspondence from that specialist and any available testing were reviewed during today's visit. 10. Current moderate episode of major depressive disorder without prior episode (HCC) (CMS/HCC) This is a chronic medical condition that is stable since last assessment. No changes in treatment are suggested at this time. Can continue Paxil as prescribed. 11. Elevated alkaline phosphatase level This is a chronic medical condition that is stable since last assessment. Will continue to monitor with routine labs. 12. Estrogen deficiency This is a chronic medical condition that is stable since last assessment. Will continue to monitor with preventative screenings. 13. Generalized anxiety disorder ([facility]/HCC) This is a chronic medical condition that is stable since last assessment. No changes in treatment are suggested at this time. Can continue Paxil as prescribed. 14. Hypercholesteremia (CMS/HCC) This is a chronic medical condition that is stable since last assessment. Will continue to monitor with routine labs. 15. Hypomagnesemia This is a chronic medical condition that is stable since last assessment. Will continue to monitor with routine labs. 16. Renal transplant recipient ([facility]) The patient is seeing a durable medical equipment technician for this condition, treatment is deferred to that specialist. Correspondence from that specialist and any available testing were reviewed during today's visit. Follow up in about 1 year (around 06/01/2025) for Medicare Wellness Visit. Ester CARRASCO PA-C documented in this encounter [facility] 04-01-2024 Note Transplant Clinic Patient : Tanika [...] in the above HPI Chart Reviewed Historical: >>>>>>>>>>>>>>>>>>>>>>>>>>>>>>>>>> >>>>>>>>>>>>>> 09/23/23 Pt here in follow up with her . Pt hx: renal Tx 2013, APKD. Continues to see PCP: [facility]. Pt reports current oral thrush [...] Continue meds and MONTHLY Labs with New [facility] standing Order given today. Follow up 6 months or sooner if needed. See Derm See PCP as scheduled: Dr Carroll. Magic Mouthwash script provided. Chart Review today: 03.17.23 Pt presents visit with . Pt states labs done Last week in [facility] and [place] calling for results. Pt seeing Derm in [place] for lesion: forearm and other lesions. Hx: [...] Hgb. Pt AGAIN instructed to use our [facility] Transplant standing order for her monthly labs. Pt reports B/P stable at home Discussed hydration PLan of Care: Continue meds and MONTHLY Labs with [facility] standing Order. Follow up 6 months [...] though she is done with the study. <<<<<<<<<<<<<<<<<<<<<<<<<<<<<<<<<< < (more content not included)... [facility] 12-18-2023 Note Will review by phone today with Dr. Negro Vivas tac level 3.9 for 2 consecutive months and if any dose changes, will notify this pt and amend this note. Most recent IR tacrolimus dosing on record is 0.5mg BID [facility] 12-09-2023 Note Prior auth for Mycop henolate was submitted via [facility] Approved- scanned into media Keycode: [id number] [facility] 11-26-2023 Note Prior auth submitted via [employer] [employer] Case: [id number], Status: Approved, Coverage Starts on: 08/27/2023 12:00:00 AM, Coverage Ends on: 11/25/2024 12:00:00 AM Keycode: [id number] [facility] 09-23-2023 Note 09/23/23 Chief Complaint Patient presents with Kidney Follow-up Pt has been having sores in her mouth for the past month. PCP: Ramon Carroll MD Txp Referring: Preferred Pharmacy: [facility] - [place], [place] - [address] [facility] [address] [id number] [place], [place] - [address] [place] [phone] [facility] - [address] [facility] [address] Subjective Visit Vitals BP 139/74 (BP Location: Left arm, Patient Position: Sitting, BP Cuff Size: Adult) Pulse 59 Temp 36.3 ???C (97.3 ???F) (Oral) Resp 18 Ht 1.524 m (5') Wt 58.5 kg (129 lb) SpO2 99% BMI 25.19 kg/m??? OB Status Postmenopausal Smoking Status Never BSA 1.57 m??? No Known Allergies Medication Documentation Review Audit Reviewed by Ester Frederick MA ([employer]) on 09/23/23 at 0859 Medication Order Taking? Sig Documenting Provider Last Dose Status amLODIPine (Norvasc) 5 mg tablet [id number] Yes TAKE 1 TABLET BY MOUTH EVERY DAY Virgil Haynes NP Taking Active amoxicillin (Amoxil) 500 mg capsule [id number] No 1 capsule every 8 (eight) hours. Historical Provider, Not Taking Active atorvastatin (Lipitor) 20 mg tablet [id number] Yes TAKE 1 TABLET BY MOUTH EVERY DAY AT BEDTIME Virgil Haynes NP Taking Active baclofen (Lioresal) 10 mg tablet [id number] No Historical Provider, MD Not Taking Active cyanocobalamin (Vitamin B-12) 500 mcg tablet [id number] Yes in the morning. Historical ProviderMD Taking Active magnesium oxide (Mag-Ox) 400 mg (241.3 mg magnesium) tablet [id number] Yes Take 400 mg by mouth in the morning. Historical ProviderMD Taking Active mycophenolate (Myfortic) 180 mg EC tablet [id number] Yes TAKE 4 TABLETS BY MOUTH IN THE MORNING AND AT BEDTIME Patient taking differently: Take 540 mg by mouth in the morning and at bedtime. Doe Bridges MD Taking Active omega-3 fatty acids-fish oil (Fish OiL Extra Strength) 435-880 mg capsule [id number] Yes 1 capsule 1 (one) time each day at the same time. Historical Provider, Taking Active PARoxetine (Paxil) 10 mg tablet [id number] Yes Take 10 mg by mouth in the morning. Historical Provider, Taking Active potassium gluconate 595 mg (99 mg) tablet [id number] Yes every 12 (twelve) hours. Historical Provider, Taking Active spironolactone (Aldactone) 25 mg tablet [id number] Yes TAKE 1 TABLET BY MOUTH EVERY DAY Virgil Haynes NP Taking Active tacrolimus (Prograf) 0.5 mg capsule [id number] Yes TAKE ONE CAPSULE BY MOUTH EVERY [...] APKD. Continues to see PCP: [facility]. Pt reports current oral thrush [...] Continue meds and MONTHLY Labs with New [facility] standing Order given today. Follow up 6 months or sooner if needed. See Derm See PCP as scheduled: Dr Carroll. Magic Mouthwash script provided. Chart Review today: 03.17.23 Pt presents visit with . Pt states labs done Last week in [facility] and [place] calling for results. Pt seeing Derm in [place] for lesion: forearm and other lesions. Hx: melanoma PCP: local Dr Khoury (more content not included)... [facility] 03-27-2023 Evaluation note Encounter Date Diagnosis Assessment Notes Feb, Contact with and (suspected) exposure to covid-19 (ICD-10 - Z20.822) Feb, Viral URI (ICD-10 - J06.9) Advised patient that COVID/Influenza A/B/RSV test and rapid Strep test was negative today. Advised patient that will treat as viral URI. Supportive care as directed, increase fluids and rest, Tylenol as directed, rx of [place], cool mist humidifier, throat lozenges. Discussed infection [...] condition. Feb, Sore throat (ICD-10 - J02.9) [facility] Other 10-15-2022 Evaluation note* Encounter Date Diagnosis [...] understanding and is agreeable with treatment plan [facility] Other 09-30-2022 Evaluation note* Encounter Date Diagnosis [...] no improvement in 2 to 3 days. [facility] Other 09-27-2022 Evaluation note* Encounter Date Diagnosis [...] treatment plan. Patient left in stable condition [facility] Other 07-30-2022 Evaluation note* Encounter Date Diagnosis [...] verbalizes understanding and agrees with treatment plan [facility] Other 05-17-2022 Evaluation note* Encounter Date Diagnosis [...] days July, Hematuria, unspecified (ICD-10 - R31.9) [facility] Other 08-12-2008 History general Narrative - Reported* Type Description Date Medical History PKD found in 1982 when she had a son Medical History hypertension Medical History kidney transplant Surgical History resection of superior cervical mass 11/10/07 Surgical History Teeth extraction in preparation for renal transplant Surgical History portacath placement Surgical History kidney transplant 2014 Hospitalization History see above [facility] Other Evaluation noteNort [facility] Other Evaluation note* Diagnosis Onset Date Resolution Status Thrush, oral acute Sore throat noneactive [facility] Work Phone: Evaluation note* Diagnosis Medicare annual wellness visit, subsequent- Primary ACP (advance care planning) Other specified counseling Acute non-recurrent pansinusitis Acute bronchitis, unspecified organism Primary hypertension ([facility]/HCC) Unspecified essential hypertension PKD (polycystic kidney disease) Congenital polycystic kidney, unspecified type Joint contracture of foot, unspecified laterality Immunosuppression ([facility]) Abnormal complete blood count Other abnormal blood chemistry Current moderate episode of major depressive disorder without prior episode (HCC) ([facility]) Elevated alkaline phosphatase level Estrogen deficiency Other ovarian failure Generalized anxiety disorder ([facility]/HCC) Generalized anxiety disorder Hypercholesteremia ([facility]) Pure hypercholesterolemia Hypomagnesemia Disorders of magnesium metabolism Renal transplant recipient ([facility]) documented in this encounter [facility] - [id number] Other Summary Purpose Family History No Family [...] content) DATE CREATED AUTHOR 01/30/2018 [facility] DATE CREATED AUTHOR AUTHOR'S ORGANIZ ATION 08/17/2021 [facility] DATE CREATED AUTHOR AUTHOR'S ORGANIZ ATION 08/13/2022 [facility] DATE CREATED AUTHOR AUTHOR'S ORGANIZ ATION 04/02/2024 [facility] DATE CREATED AUTHOR AUTHOR'S ORGANIZ ATION 06/03/2024 [facility] EPIC REASON FOR VISIT (unrecogniz ed section and content) Reason Comments URMaame Admits sinus pressur e/pain, headaches, nasal congestion, runny nose (white and green mucous), sneezing, post nasal drainage, bilateral ear discomfort, cough (dry). She has been sick for 5 days. She has been taking Tylenol. She feels she is getting worse. Care Teams (unrecognized sec tion and content) Team Status: Active Member Role Status Dates Shelly May Primary Care Provider Active Team Status: Inactive Member Role Status Dates Shelly May Primary Care Provider Active Start: August 30, 2023 End: August 30, 2023 Lindsay Soria APRN Attending Provider Active Start: August 30, 2023 End: August 30, 2023 Head Teacher Relationship Specialty Start Date End Date Ramon Carroll MD [address] [facility] [address] [place] [address] PCP - Amy FERREIRA 04/08/21 Ramon Carroll MD [address] [facility] [address] [place] [address] PCP - General Internal Medicine 08/06/22 Head Teacher Relationship Specialty Start Date End Date Ramon Carroll MD [address] [facility] [address] [place] [address] PCP - Amy FERREIRA 04/08/21 Ramon Carroll MD [address] [facility] [address] [place] [address] PCP - General Internal Medicine 08/06/22 Head Teacher Relationship Specialty Start Date End Date Ramon Carroll MD [address] [facility] [address] [place] [address] PCP - Amy FERREIRA 04/08/21 Raomn Carroll MD [address] [facility] [address] [place] [address] PCP - General Internal Medicine 08/06/22 Head Teacher Relationship Specialty Start Date End Date Ramon Carroll MD [address] [facility] [address] [place] [address] PCP - General Internal Medicine 08/06/22 Head Teacher Relationship Specialty Start Date End Date Ramon Carroll MD [address] [facility] [address] [place] [address] PCP - Amy FERREIRA 04/08/21 Ramon Carroll MD [address] [facility] [address] [place] [address] PCP - General Internal Medicine 08/06/22 Head Teacher Relationship Specialty Start Date End Date Ramon Carroll MD [address] [facility] [address] [place] [address] PCP Ailyn Reyes MA 04/08/21 Ramon Carroll MD [address] [facility] [address] [place] [address] PCP - General Internal Medicine 08/06/22 Goals [...] BE BASED ON THE PRIMARY CLINICAL RECORDS. [facility]. provides no warranty or guarantee of the accuracy or completeness of information in this document.
[2024-06-14 06:59] LABS: Basophils Percent Auto 0.2 % (0.2-2.0); Eosinophils Absolute Auto 0.3 10^3/uL (0.0-0.7); Hematocrit 43.1 % (36.0-48.0); Hemoglobin 13.9 g/dL (12.0-16.0); Immature Granulocytes Abs Auto 0.02 10^3/uL (0.00-0.03); Immature Granulocytes Pct Auto 0.2 % (0.0-0.5); Lymphocytes Absolute Auto 1.4 10^3/uL (1.2-3.8); Lymphocytes Percent Auto 16.4 % (20.5-60.0); Mean Corpuscular HGB Conc 32.3 g/dL (29.9-35.2); Mean Corpuscular Hemoglobin 30.6 pg (26.7-34.0); Mean Corpuscular Volume 94.9 fL (81.0-99.0); Monocytes Absolute Auto 0.9 10^3/uL (0.3-0.8); Monocytes Percent Auto 10.4 % (1.7-12.0); Neutrophils Absolute Auto 5.9 10^3/uL (1.4-6.5); Neutrophils Percent Auto 68.8 % (43.0-75.0); Platelet Count 224 10^3/uL (150-450); Red Blood Count 4.54 10^6/uL (4.20-5.40); Red Cell Distribution Width 14.6 % (11.0-15.0); White Blood Count 8.6 10^3/uL (4.0-11.0)
[2024-06-14 07:32] LABS: Alanine Aminotransferase 9 U/L (14-59); Albumin Globulin Ratio 1.2; Albumin Level 3.5 g/dL (3.4-5.0); Alkaline Phosphatase 155 U/L (46-116); Anion Gap 9.6; Aspartate Amino Transferase 13 U/L (15-37); BUN Creatinine Ratio 19.4; Bilirubin Direct 0.2 mg/dL (0.0-0.2); Bilirubin Total 0.7 mg/dL (0.2-1.0); Calcium 9.2 mg/dL (8.5-10.1); Carbon Dioxide 29.5 mmol/L (21.0-32.0); Chloride 107 mmol/L (98-107); Estimated GFR (African America >60 (>=60 mL/min/1.73m^2); Estimated GFR (Non-African Ame >60 (>=60 mL/min/1.73m^2); Glucose 91 mg/dL (74-106); Magnesium 1.7 mg/dL (1.8-2.4); Phosphorus 3.1 mg/dL (2.6-4.7); Potassium 4.1 mmol/L (3.5-5.1); Sodium 142 mmol/L (136-145); Total Protein 6.5 g/dL (6.4-8.2)
== END 2024-06-14 06:38 | disposition home or self-care (01) ==
LOC: LAB 06:39
PROVIDERS: PCP Internal Medicine; Visit Provider Nurse Practitioner Family
DX: Z94.0 Kidney transplant status (principal); R73.01 Impaired fasting glucose
CPT/HCPCS: 36415; 80053; 80197; 82248; 83735; 84100; 84550; 85025

== ENCOUNTER 2024-07-16 06:39 | Outpatient (OUT) | payer MEDICARE, SELFPAY ==
--- OUTSIDE RECORDS SUMMARY | 2024-07-16 06:44 | XMS_ITS | CCD ---
Author Organization [facility] Care Team Providers Care Special Skills Officer Name Role Phone NEWHALEN, DINKAR Unavailable Unavailable NEWHALEN, DINKAR Unavailable Unavailable CARROLL, RAMON Unavailable Unavailable [...] Attending Unavailable MISC, DR OBRIEN Admitting Unavailable NEWHALEN, DR CONNORS Consulting Unavailable CARROLL, DR DARBY Primary Care Unavailable MISC, DR OBRIEN Attending Unavailable MISC, DR OBRIEN Admitting Unavailable MISC, DR OBRIEN Attending Unavailable MISC, DR OBRIEN Admitting Unavailable MISC, DR OBRIEN Consulting Unavailable CARROLL, DR DARBY Primary Care Unavailable NEWHALEN, DR CONNORS Consulting Unavailable NEWHALEN, DR CONNORS Attending Unavailable CARROLL, DR DARBY Primary Care Unavailable NEWHALEN, DR CONNORS Admitting Unavailable NEWHALEN, DR CONNORS Attending Unavailable CARROLL, DR DARBY Primary Care Unavailable NEWHALEN, DR CONNORS Admitting Unavailable NEWHALEN, DR CONNORS Consulting Unavailable MISC, DR OBRIEN [...] Unavailable CARROLL, DR DARBY Primary Care Unavailable NEWHALEN, DR CONNORS Consulting Unavailable NEWHALEN, DR CONNORS Attending Unavailable CARROLL, DR DARBY Primary Care Unavailable NEWHALEN, DR CONNORS Admitting Unavailable MISC, DOCTOR Attending Unavailable MISC, DR OBRIEN Admitting Unavailable MISC, DR OBRIEN Consulting Unavailable CARROLL, DR DARBY Primary Care Unavailable MISC, DOCTOR Attending Unavailable MISC, DR OBRIEN Admitting Unavailable MISC, DR OBRIEN Consulting Unavailable CARROLL, DR DARBY Primary Care Unavailable NEWHALEN, DR CONNORS Consulting Unavailable NEWHALEN, DR CONNORS Attending Unavailable DR DOE BRIDGES Admitting Unavailable DR RAMON CARROLL Primary Care Unavailable Ramon Carroll MD Unavailable [phone] Ramon Carroll MD Primary Care Provider VIRGIL HAYNES Attending Unavailable ASHLI CARTER Attending Unavailable ESTER PADILLA Attending Unavailable ESTER PADILLA Attending Unavailable Medications Current Medications Medication Drug Class(es) Dates Sig (Normalized) Sig (Original) [id number] 200 actuat albuterol 0.09 mg/actuat metered dose [...] 1.5 mg/ml oral solution (1 source) Uncompetitive C-mpkojy-U-asparta te Receptor Antagonist, Sigma-1 Agonist Start: 03-27-2023 take 10 mL by mouth every eight hours [place] DM 7.5-7.5 MG/5ML 10 mL Orally every 8 hours for 5 days Feb, Active ergocalciferol 1.25 mg oral capsule (9 sources) Provitamin D2 Compound Start: 06-27-2011 take 1 capsule by mouth every week Vitamin D (Ergocalciferol) 68393 UNIT 1 capsule Orally Once a Week [...] 3 tablets before bedtime. 01/27/2023 Active nystatin 289872 unt/ml oral suspension (10 sources) Polyene Antifungal Start: 09-02-2023 take 5 mL by mouth four times daily nystatin (Mycostatin) 433655 UNIT/ML suspension Indications: Thrush, oral SWISH AND SWALLOW 5 MLS ORALLY 4 TIMES A DAY FOR 10 DAYS 60 mL 1 09/02/2023 Active Start: 08-30-2023 take 1 mL by mouth f our times daily Nystatin Active 5 ML PO Four times daily 200 10 August 30, 2023 12:00am swish and swallow [place] 7-Rng-Ndy-Fish Oil (Fish Oil) 1,000 mg (120 mg-180 mg) capsule (1 source) Start: 08-30-2023 take 1 capsule by mouth once daily [place] 5-Zzp-Pqf-Fish Oil (Fish Oil) 1,000 mg (120 mg-180 [...] 03-27-2017 Episodic Other aftercare (2 sources) Other half-way (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 therapy; Translations: [OTHER [facility] (CURRENT) DRUG THERAPY] Onset: 02-26-2017 Episodic Other [...] WITH AUTO DIFFon BASOPHILS ABSOLUTE AUTO 0 [facility] Basophils/100 WBC (Bld) 0.2 % 0.2 - 2.0 % [facility] Eosinophils/100 WBC (Bld) 2.7 % 0.9 - 7.0 % [facility] Erythrocyte distribution width (RBC) [Ratio] 14.6 % 11.0 - 15.0 % [facility] Hematocrit (Bld) [Volume fraction] 46.2 % 36.0 - 48.0 % [facility] Hemoglobin (Bld) [Mass/Vol] 14.8 g/dL 12.0 - 16.0 g/dL [facility] IMMATURE GRANULOCYTES ABS AUTO 0.01 [facility] Immature granulocytes/100 WBC (Bld) 0.2 % 0.0 - 0.5 % [facility] LYMPHOCYTES ABSOLUTE AUTO 1.4 [facility] Lymphocytes/100 WBC (Bld) 22.2 % 20.5 - 60.0 % [facility] MCH (RBC) [Entitic mass] 30.6 pg 26.7 - 34.0 pg [facility] MCHC (RBC) [Mass/Vol] 32 g/dL 29.9 - 35.2 g/dL [facility] MCV (RBC) [Entitic vol] 95.7 fL 81.0 - 99.0 fL [facility] MONOCYTES ABSOLUTE AUTO 0.7 [facility] Monocytes/100 WBC (Bld) 10.3 % 1.7 - 12.0 % [facility] NEUTROPHILS ABSOLUTE AUTO 4.1 [facility] Neutrophils/100 WBC (Bld) 64.4 % 43.0 - 75.0 % [facility] Platelet mean volume (Bld) [Entitic vol] 11.1 fL 9.5 - 13.5 fL [facility] TBH EO # 0.2 [facility] TB PLT 219 [facility] TB RBC 4.83 [facility] WBC 6.4 [facility] CLINISYNC [facility] ALL CBC WITH AUTO DIFFon BASOPHILS ABSOLUTE AUTO 0 [facility] Basophils/100 WBC (Bld) 0.3 % 0.2 - 2.0 % [facility] Eosinophils/100 WBC (Bld) 2.8 % 0.9 - 7.0 % [facility] Erythrocyte distribution width (RBC) [Ratio] 14.9 % 11.0 - 15.0 % [facility] Hematocrit (Bld) [Volume fraction] 44.3 % 36.0 - 48.0 % [facility] Hemoglobin (Bld) [Mass/Vol] 14.2 g/dL 12.0 - 16.0 g/dL [facility] IMMATURE GRANULOCYTES ABS AUTO 0.02 [facility] Immature granulocytes/100 WBC (Bld) 0.3 % 0.0 - 0.5 % [facility] Interpretation and review of laboratory results Abnormal [facility] LYMPHOCYTES ABSOLUTE AUTO 1.2 [facility] Lymphocytes/100 WBC (Bld) 17.3 % Low 20.5 - 60.0 % [facility] MCH (RBC) [Entitic mass] 30.5 pg 26.7 - 34.0 pg [facility] MCHC (RBC) [Mass/Vol] 32.1 g/dL 29.9 - 35.2 g/dL [facility] MCV (RBC) [Entitic vol] 95.3 fL 81.0 - 99.0 fL [facility] MONOCYTES ABSOLUTE AUTO 0.7 [facility] Monocytes/100 WBC (Bld) 9.4 % 1.7 - 12.0 % [facility] NEUTROPHILS ABSOLUTE AUTO 5 [facility] Neutrophils/100 WBC (Bld) 69.9 % 43.0 - 75.0 % [facility] Platelet mean volume (Bld) [Entitic vol] 11.5 fL 9.5 - 13.5 fL [facility] TB EO # 0.2 [facility] PLT 210 [facility] RBC 4.65 [facility] TB WBC 7.1 [facility] 29on 04-01-2024 29 Addended by: ESTER FREDERICK on: 04/01/2024 02:20 PM Modules accepted: Orders Normal [facility] Follow-Upon 04-01-2024 Follow-Up [id number] Tanika Grimm 1955 F Date Provider Department Center 04/01/2024 [id number]-ARTRZMSASHLI CARTER TXGely None Family History Family Status - Relation Status Age at Mother Father Level of Service:81887 NE OFFICE/OUTPATIENT ESTABLISHED MOD MDM 30 MIN Reason for Visit and Comments: Kidney Follow-up [] - Pt has no concerns at this time. Normal [facility] ALL CBC WITH AUTO DIFFon BASOPHILS ABSOLUTE AUTO 0 [facility] Basophils/100 WBC (Bld) 0.2 % 0.2 - 2.0 % [facility] Eosinophils/100 WBC (Bld) 2.2 % 0.9 - 7.0 % [facility] Erythrocyte distribution width (RBC) [Ratio] 14.8 % 11.0 - 15.0 % [facility] Hematocrit (Bld) [Volume fraction] 45.3 % 36.0 - 48.0 % [facility] Hemoglobin (Bld) [Mass/Vol] 14.4 g/dL 12.0 - 16.0 g/dL [facility] IMMATURE GRANULOCYTES ABS AUTO 0.02 [facility] Immature granulocytes/100 WBC (Bld) 0.2 % 0.0 - 0.5 % [facility] Interpretation and review of laboratory results Abnormal [facility] LYMPHOCYTES ABSOLUTE AUTO 1.5 [facility] Lymphocytes/100 WBC (Bld) 18.6 % Low 20.5 - 60.0 % [facility] MCH (RBC) [Entitic mass] 30.6 pg 26.7 - 34.0 pg [facility] MCHC (RBC) [Mass/Vol] 31.8 g/dL 29.9 - 35.2 g/dL [facility] MCV (RBC) [Entitic vol] 96.4 fL 81.0 - 99.0 fL [facility] MONOCYTES ABSOLUTE AUTO 0.8 [facility] Monocytes/100 WBC (Bld) 10 % 1.7 - 12.0 % [facility] NEUTROPHILS ABSOLUTE AUTO 5.5 [facility] Neutrophils/100 WBC (Bld) 68.8 % 43.0 - 75.0 % [facility] Platelet mean volume (Bld) [Entitic vol] 11.4 fL 9.5 - 13.5 fL [facility] TBH EO # 0.2 [facility] TBH PLT 197 [facility] TB RBC 4.7 [facility] [facility] TACR[facility]IM[facility] (FK506), BLOODon 02-17-2024 TACROLIMUS (FK506), BLOOD 4.5 ng/mL 2.0 - 20.0 ng/mL [facility] Comment on above: This test was develo ped and its performance characteristics determined by [facility]. It has not been cleared or approved by the Food and Drug Administration. Trough (immediately following transplant) 15.0 Trough (steady state, 2 weeks or more after transplant): 3.0 - 8.0 Performed by LC-MS/MS technology. Performed at: [address] [id number] Airframe Technical Officer: Marizol Singleton MD, Phone: [phone] [facility] ALL CBC WITH AUTO DIFFon BASOPHILS ABSOLUTE AUTO 0 [facility] Basophils/100 WBC (Bld) 0.3 % 0.2 - 2.0 % [facility] Eosinophils/100 WBC (Bld) 2.1 % 0.9 - 7.0 % [facility] Erythrocyte distribution width (RBC) [Ratio] 14.7 % 11.0 - 15.0 % [facility] Hematocrit (Bld) [Volume fraction] 43.3 % 36.0 - 48.0 % [facility] Hemoglobin (Bld) [Mass/Vol] 14.2 g/dL 12.0 - 16.0 g/dL [facility] IMMATURE GRANULOCYTES ABS AUTO 0.03 [facility] Immature granulocytes/100 WBC (Bld) 0.4 % 0.0 - 0.5 % [facility] LYMPHOCYTES ABSOLUTE AUTO 1.4 [facility] Lymphocytes/100 WBC (Bld) 20.7 % 20.5 - 60.0 % [facility] MCH (RBC) [Entitic mass] 30.9 pg 26.7 - 34.0 pg [facility] MCHC (RBC) [Mass/Vol] 32.8 g/dL 29.9 - 35.2 g/dL [facility] MCV (RBC) [Entitic vol] 94.1 fL 81.0 - 99.0 fL [facility] MONOCYTES ABSOLUTE AUTO 0.7 [facility] Monocytes/100 WBC (Bld) 10.8 % 1.7 - 12.0 % [facility] NEUTROPHILS ABSOLUTE AUTO 4.4 [facility] Neutrophils/100 WBC (Bld) 65.7 % 43.0 - 75.0 % [facility] Platelet mean volume (Bld) [Entitic vol] 11.3 fL 9.5 - 13.5 fL [facility] TBH EO # 0.1 [facility] TBH PLT 193 [facility] RBC 4.6 [facility] WBC 6.7 [facility] ALL MAGNESIUMon 02-13-2024 Magnesium [Mass/Vol] 1.7 mg/dL Low 1.8 - 2 .4 mg/dL [facility] ALL PHOSPHOROUSon 02-13-2024 Phosphate [Mass/Vol] 3.4 mg/dL 2.6 - 4 .7 mg/dL [facility] ALL URIC ACIDon 02-13-2024 Urate [Mass/Vol] 4.7 mg/dL 2.6 - 6.0 mg/dL [facility] CMP (CMP) (FOR REMOTE FH C USE)on 02-13-2024 Albumin [Mass/Vol] 3.6 g/dL 3.4 - 5.0 g/dL [facility] ALBUMIN GLOBULIN RATIO 1.2 [facility] ALP [Catalytic activity/Vol] 131 U/L High 46 - 116 U/L [facility] ALT [Catalytic activity/Vol] 16 U/L 14 - 59 U/L [facility] Anion gap [Moles/Vol] 14 mmol/L [facility] AST [Catalytic activity/Vol] 13 U/L Low 15 - 37 U/L [facility] Bilirubin [Mass/Vol] 0.6 mg/dL 0.2 - 1 .0 mg/dL [facility] Calcium [Mass/Vol] 9.1 mg/dL 8.5 - 10. 1 mg/dL [facility] Chloride [Moles/Vol] 108 mmol/L High 98 - 10 7 mmol/L [facility] CO2 [Moles/Vol] 26.1 mmol/L 21.0 - 32.0 mmol/L [facility] Creatinine [Mass/Vol] 0.97 mg/dL 0.55 - 1.02 mg/dL [facility] GFR/1.73 sq M.predicted CKD-EPI (S/P/Bld) [Vol rate/Area] >60 >=60 mL/min/1.73m [address] [facility] Globulin (S) [Mass/Vol] 2.9 g/dL [facility] Glucose [Mass/Vol] 95 mg/dL 74 - 106 mg/dL [facility] Potassium [Moles/Vol] 4.1 mmol/L 3.5 - 5.1 mmol/L [facility] Protein [Mass/Vol] 6.5 g/dL 6.4 - 8.2 g/dL [facility] Sodium [Moles/Vol] 144 mmol/L 136 - 145 mmol/L [facility] TBH EGFR-NON AF FINNISH 57 Low >=60 mL/min/1.73m 2 [facility] Urea nitrogen [Mass/Vol] 16 mg/dL 7.0 - 18.0 mg/dL [facility] Urea nitrogen/Creatinine [Mass ratio] 16.5 mg/mg [facility] METRO BILIRUBIN, DIRECTon Bilirubin.indirect [Mass/Vol] 0.1 mg/dL 0.0 - 0.2 mg/dL [facility] No Panel Informationon 02-12 Interpretation and review of laboratory results Abnormal [facility] ALL CBC WITH AUTO DIFFon BASOPHILS ABSOLUTE AUTO 0 [facility] Basophils/100 WBC (Bld) 0.1 % Low 0.2 - 2.0 % [facility] Eosinophils/100 WBC (Bld) 2.5 % 0.9 - 7.0 % [facility] Erythrocyte distribution width (RBC) [Ratio] 14.6 % 11.0 - 15.0 % [facility] Hematocrit (Bld) [Volume fraction] 43.8 % 36.0 - 48.0 % [facility] Hemoglobin (Bld) [Mass/Vol] 14 g/dL 12.0 - 16.0 g/dL [facility] IMMATURE GRANULOCYTES ABS AUTO 0.02 [facility] Immature granulocytes/100 WBC (Bld) 0.3 % 0.0 - 0.5 % [facility] Interpretation and review of laboratory results Abnormal [facility] LYMPHOCYTES ABSOLUTE AUTO 1.4 [facility] Lymphocytes/100 WBC (Bld) 18.7 % Low 20.5 - 60.0 % [facility] MCH (RBC) [Entitic mass] 30.3 pg 26.7 - 34.0 pg [facility] MCHC (RBC) [Mass/Vol] 32 g/dL 29.9 - 35.2 g/dL [facility] MCV (RBC) [Entitic vol] 94.8 fL 81.0 - 99.0 fL [facility] MONOCYTES ABSOLUTE AUTO 0.8 [facility] Monocytes/100 WBC (Bld) 11.1 % 1.7 - 12.0 % [facility] NEUTROPHILS ABSOLUTE AUTO 4.9 [facility] Neutrophils/100 WBC (Bld) 67.3 % 43.0 - 75.0 % [facility] Platelet mean volume (Bld) [Entitic vol] 11.2 fL 9.5 - 13.5 fL [facility] RBC 4.62 [facility] WBC 7.3 [facility] ALL CBC WITH AUTO DIFFon BASOPHILS ABSOLUTE AUTO 0.0 [facility] Basophils/100 WBC (Bld) 0.3 % 0.2 - 2.0 % [facility] Eosinophils/100 WBC (Bld) 3.6 % 0.9 - 7.0 % [facility] Erythrocyte distribution width (RBC) [Ratio] 14.7 % 11.0 - 15.0 % [facility] Hematocrit (Bld) [Volume fraction] 46.0 % 36.0 - 48.0 % [facility] Hemoglobin (Bld) [Mass/Vol] 14.7 g/dL 12.0 - 16.0 g/dL [facility] IMMATURE GRANULOCYTES ABS AUTO 0.01 [facility] Immature granulocytes/100 WBC (Bld) 0.2 % 0.0 - 0.5 % [facility] LYMPHOCYTES ABSOLUTE AUTO 1.4 [facility] Lymphocytes/100 WBC (Bld) 22.4 % 20.5 - 60.0 % [facility] MCH (RBC) [Entitic mass] 30.1 pg 26.7 - 34.0 pg [facility] MCHC (RBC) [Mass/Vol] 32.0 g/dL 29.9 - 35.2 g/dL [facility] MCV (RBC) [Entitic vol] 94.3 fL 81.0 - 99.0 fL [facility] MONOCYTES ABSOLUTE AUTO 0.6 [facility] Monocytes/100 WBC (Bld) 9.6 % 1.7 - 12.0 % [facility] NEUTROPHILS ABSOLUTE AUTO 3.9 [facility] Neutrophils/100 WBC (Bld) 63.9 % 43.0 - 75.0 % [facility] Platelet mean volume (Bld) [Entitic vol] 11.6 fL 9.5 - 13.5 fL [facility] TBH EO # 0.[address] [facility] TBH PLT [address] [facility] TB RBC 4.88 [facility] WBC 6.[address] [facility] MLR HEMOGLOBIN A1Con 024 Glucose [Mass/Vol] 108 mg/dL [facility] HbA1c (Bld) [Mass fraction] 5.4 % 4.5 - 6.2 % [facility] Comment on above: ADA RECOMMENDED LIMI T 4.0 - 6.0 ADA THERAPEUTIC TARGET < 7.0 ACTION SUGGESTED > 7.0 [facility]23 Documentation [id number] Tanika Grimm 1955 Provider Department Center 12/09/2023 86FERNANDA MASON TXGely None Family History Family Status - Relation Status Age at Mother Father Reason for Visit and Comments: Prior auth : Mycophenolate [Other] [facility] Documentationon 11-26-2023 Documentation [id number] Epstein 1955 Provider Department Center 11/26/2023 FERNANDA MARVIN TXGely None Family History Family Status - Relation Status Age at Mother Father Reason for Visit and Comments: Prior auth Tac 0.5mg [Other] [facility] Documentationon 10-27-2023 Documentation [id number] Tanika Grimm 1955 Provider Department Center 10/27/2023 750-ANEL MIRANDA TXGely None Family History Family Status - Relation Status Age at Mother Father [facility] 29on 09-23-2023 29 Addended by: DIANE LE on: 09/23/2023 03:27 PM Modules accepted: Orders [facility] Follow-Upon 09-23-2023 Follow-Up [id number] Tanika Grimm 1955 Provider Department Center 09/23/2023 124-VIRGIL HAYNES TXP None Family History Family Status - Relation Status Age at Mother Father Level of Service:[id number] NE OFFICE/OUTPATIENT ESTABLISHED MOD MDM 30 MIN Reason for Visit and Comments: Kidney Follow-up [[id number]] - Pt has been having sores in her mouth for the past month. Normal [facility] No Panel InformationOrdered By: Lindsay Soria on 08-30-2023 Quick Strep (POC) [facility] Documentationon 08-26-2023 Documentation [id number] Adan Grimmbobo Shabazz 1955 F Date Provider Department Center 08/26/2023 750-RUTH, TYMARA TXP None No family history on file [facility] Documentationon 05-19-2023 Documentation [id number] Adan Grimmbobo Shabazz 1955 F Date Provider Department Center 05/19/2023 750-RUTH, TYMARA TXP None No family history on file [facility] COVID/FLU/RSV RT-PCRon 03-27 SARS-CoV-2 (COVID-19) RNA MURALI+probe Ql (Unsp spec) Negative [facility] Other COVID/FLU/RSV RT-PCR Negative [facility] Other Quick Strepon 03-27-2023 S. pyogenes Org specific cx Ql (Throat) Negative [facility] Other Quick Strep [facility] Other BILIRUBIN CONJUGATED (DIRECT )on 08-12-2022 BILI, CONJUGATED 0.1 mg/dL Normal 0.0-0.2 [facility] Comment on above: Performed By: #### D DAVIDSON, MG, PHOS, CMP, LIPID, URIC #### [facility] [address] [place] [address] Dr. Sarmad Patino GLYCOHEMOGLOBIN A1Con 2022 ADA RECOMMENDATION SEE BELOW Normal [facility] Comment on above: Result Comment: ADA RECOMMENDED LIMIT 4.0 - 6.0 ADA THERAPEUTIC TARGET < 7.0 ACTION SUGGESTED > 7.0 Performed By: #### D DAVIDSON, MG, PHOS, CMP, LIPID, URIC #### [facility] [address] [address] [address] Sarmad Patino Glucose [Mass/Vol] 108 mg/dL Normal [facility] Comment on above: Performed By: #### D DAVIDSON, MG, PHOS, CMP, LIPID, URIC #### [facility] [address] [address] [address] Sarmad Patino HbA1c (Bld) [Mass fraction] 5.4 % Normal 4.5-6.2 [facility] Comment on above: Performed By: #### D DAVIDSON, MG, PHOS, CMP, LIPID, URIC #### [facility] [address] [address] [address] Sarmad Patino MAGNESIUMon 08-12-2022 Magnesium [Mass/Vol] 1.7 mg/dL Critically low 1.8-2.4 [facility] Comment on above: Performed By: #### D DAVIDSON, MG, PHOS, CMP, LIPID, URIC #### [facility] [address] [place] [address] Dr. Sarmad Patino PHOSPHORUSon 08-12-2022 Phosphate [Mass/Vol] 3.9 mg/dL Normal 2.6-4.7 [facility] Comment on above: Performed By: #### U JUVE, LIPID, MG, CMP, DBIL, PHOS #### [facility] [address] [place] [address] Dr. Sarmad Patino PROF 14(COMP METB)on 023 Albumin [Mass/Vol] 3.9 g/dL Normal 3.4-5.0 [facility] Comment on above: Performed By: #### D DAVIDSON, MG, PHOS, CMP, LIPID, URIC #### [facility] [address] [place] [address] Dr. Sarmad Patino Albumin/Globulin [Mass ratio] 1.2 {ratio} Normal [facility] Comment on above: Performed By: #### D DAVIDSON, MG, PHOS, CMP, LIPID, URIC #### [facility] [address] [address] [address] Sarmad Patino ALP [Catalytic activity/Vol] 126 U/L Critically high 46-116 [facility] Comment on above: Performed By: #### D DAVIDSON, MG, PHOS, CMP, LIPID, URIC #### [facility] [address] [address] [address] Sarmad Patino ALT [Catalytic activity/Vol] 18 U/L Normal 14-59 [facility] Comment on above: Performed By: #### D DAVIDSON, MG, PHOS, CMP, LIPID, URIC #### [facility] [address] [address] [address] Sarmad Patino Anion gap [Moles/Vol] 10.4 mmol/L Normal [facility] Comment on above: Performed By: #### D DAVIDSON, MG, PHOS, CMP, LIPID, URIC #### [facility] [address] [place] [address] Dr. Sarmad Patino AST [Catalytic activity/Vol] 14 U/L Critically low 15-37 [facility] Comment on above: Performed By: #### D DAVIDSON, MG, PHOS, CMP, LIPID, URIC #### [facility] [address] [address] [address] Sarmad Patino Bilirubin [Mass/Vol] 0.7 mg/dL Normal 0.2-1.0 [facility] Comment on above: Performed By: #### D DAVIDSON, MG, PHOS, CMP, LIPID, URIC #### [facility] [address] [place] [address] Dr. Sarmad Patino Calcium [Mass/Vol] 9.8 mg/dL Normal 8.5-10.1 [facility] Comment on above: Performed By: #### D DAVIDSON, MG, PHOS, CMP, LIPID, URIC #### [facility] [address] [address] [address] Sarmad Patino Chloride [Moles/Vol] 106 mmol/L Normal 98-107 [facility] Comment on above: Performed By: #### D DAVIDSON, MG, PHOS, CMP, LIPID, URIC #### [facility] [address] [address] [address] Sarmad Patino CO2 [Moles/Vol] 32.1 mmol/L Critically high 21.0-32.0 [facility] Comment on above: Performed By: #### D DAVIDSON, MG, PHOS, CMP, LIPID, URIC #### [facility] [address] [address] [address] Sarmad Patino Creatinine [Mass/Vol] 0.92 mg/dL Normal 0.55-1.02 [facility] Comment on above: Performed By: #### D DAVIDSON, MG, PHOS, CMP, LIPID, URIC #### [facility] [address] [place] [address] Dr. Sarmad Patino EGFR-AF FINNISH >60 Normal >=60 [facility] Comment on above: Performed By: #### D DAVIDSON, MG, PHOS, CMP, LIPID, URIC #### [facility] [address] [place] [address] Dr. Sarmad Patino EGFR-NON AF FINNISH >60 Normal >=60 [facility] Comment on above: Performed By: #### D DAVIDSON, MG, PHOS, CMP, LIPID, URIC #### [facility] [address] [place] [address] Dr. Sarmad Patino Globulin (S) [Mass/Vol] 3.3 g/dL Normal [facility] Comment on above: Performed By: #### D DAVIDSON, MG, PHOS, CMP, LIPID, URIC #### [facility] [address] [place] [address] Dr. Sarmad Patino Glucose [Mass/Vol] 102 mg/dL Normal 74-106 [facility] Comment on above: Performed By: #### D DAVIDSON, MG, PHOS, CMP, LIPID, URIC #### [facility] [address] [place] [address] Dr. Sarmad Patino Potassium [Moles/Vol] 4.5 mmol/L Normal 3.5-5.1 [facility] Comment on above: Performed By: #### D DAVIDSON, MG, PHOS, CMP, LIPID, URIC #### [facility] [address] [place] [address] Dr. Sarmad Patino Protein [Mass/Vol] 7.2 g/dL Normal 6.4-8.2 [facility] Comment on above: Performed By: #### D DAVIDSON, MG, PHOS, CMP, LIPID, URIC #### [facility] [address] [address] [address] Sarmad Patino Sodium [Moles/Vol] 144 mmol/L Normal 136-145 [facility] Comment on above: Performed By: #### D DAVIDSON, MG, PHOS, CMP, LIPID, URIC #### [facility] [address] [address] [address] Sarmad Patino Urea nitrogen [Mass/Vol] 20.0 mg/dL Critically high 7.0-18.0 [facility] Comment on above: Performed By: #### D DAVIDSON, MG, PHOS, CMP, LIPID, URIC #### [facility] [address] [address] [address] Sarmad Patino Urea nitrogen/Creatinine [Mass ratio] 21.7 mg/mg Normal [facility] Comment on above: Performed By: #### D DAVIDSON, MG, PHOS, CMP, LIPID, URIC #### [facility] [address] [address] [address] Sarmad Patino URIC ACID SERUMon 08-12-2022 Urate [Mass/Vol] 5.2 mg/dL Normal 2.6-6.0 [facility] Comment on above: Performed By: #### D DAVIDSON, MG, PHOS, CMP, LIPID, URIC #### [facility] [address] [address] [address] Sarmad Patino MG MAMM SCREEN 3D DAVIDSON CADon 07-23-2022 MG MAMM SCREEN 3D DAVIDSON CAD Patient: TANIKA GRIMM Exam Date: 07/23/2022 : 1955 Gender:F Ordering : DR RAMON CARROLL M.D. Admission #: [id number] Family : Order #: [id number] CLICK HERE TO VIEW EXAM RADIOLOGY REPORT [...] Treatments None Family Cancers None LOCATION: [facility] BREAST COMPOSITION: Extremely dense, which lowers [...] Bernard M.D. on 07/23/2022 at 16:59 Normal [facility] FK506 (TACROLIMUS) WHOLE BLO ODon 07-10-2022 Tacrolimus (FK506), Blood 3.8 ng/mL Normal 2.0-20.0 [facility] Comment on above: Result Comment: Trou gh (immediately following transplant) 15.0 . Trough (steady state, 2 weeks or more after transplant): 3.0 - 8.0 . Performed by LC-MS/MS technology. Performed By: #### D DAVIDSON, MG, PHOS, CMP, LIPID, URIC #### [facility] [address] [place] [address] Dr. Sarmad Patino BILIRUBIN CONJUGATED (DIRECT )on 07-08-2022 BILI, CONJUGATED 0.1 mg/dL Normal 0.0-0.2 [facility] Comment on above: Performed By: #### U JUVE, LIPID, MG, CMP, DBIL, PHOS #### [facility] [address] [address] [address] Sarmad Patino GLYCOHEMOGLOBIN A1Con 2022 ADA RECOMMENDATION SEE BELOW Normal [facility] Comment on above: Result Comment: ADA RECOMMENDED LIMIT 4.0 - 6.0 ADA THERAPEUTIC TARGET < 7.0 ACTION SUGGESTED > 7.0 Performed By: #### D DAVIDSON, MG, PHOS, CMP, LIPID, URIC #### [facility] [address] [address] [address] Sarmad Patino Glucose [Mass/Vol] 105 mg/dL Normal [facility] Comment on above: Performed By: #### D DAVIDSON, MG, PHOS, CMP, LIPID, URIC #### [facility] [address] [place] [address] Dr. Sarmad Patino HbA1c (Bld) [Mass fraction] 5.3 % Normal 4.5-6.2 [facility] Comment on above: Performed By: #### D DAVIDSON, MG, PHOS, CMP, LIPID, URIC #### [facility] [address] [place] [address] Dr. Sarmad Patino MAGNESIUMon 07-08-2022 Magnesium [Mass/Vol] 1.8 mg/dL Normal 1.8-2.4 [facility] Comment on above: Performed By: #### U JUVE, LIPID, MG, CMP, DBIL, PHOS #### [facility] [address] [place] [address] Dr. Sarmad Patino PHOSPHORUSon 07-08-2022 Phosphate [Mass/Vol] 3.8 mg/dL Normal 2.6-4.7 [facility] Comment on above: Performed By: #### U JUVE, LIPID, MG, CMP, DBIL, PHOS #### [facility] [address] [place] [address] Dr. Sarmad Patino PROF 14(COMP METB)on 023 Albumin [Mass/Vol] 3.7 g/dL Normal 3.4-5.0 [facility] Comment on above: Performed By: #### U JUEV, LIPID, MG, CMP, DBIL, PHOS #### [facility] [address] [place] [address] Dr. Sarmad Patino Albumin/Globulin [Mass ratio] 1.1 {ratio} Normal [facility] Comment on above: Performed By: #### U JUVE, LIPID, MG, CMP, DBIL, PHOS #### [facility] [address] [place] [address] Dr. Sarmad Patino ALP [Catalytic activity/Vol] 124 U/L Critically high 46-116 [facility] Comment on above: Performed By: #### U JUVE, LIPID, MG, CMP, DBIL, PHOS #### [facility] [address] [place] [address] Dr. Sarmad Patino ALT [Catalytic activity/Vol] 20 U/L Normal 14-59 [facility] Comment on above: Performed By: #### U JUVE, LIPID, MG, CMP, DBIL, PHOS #### [facility] [address] [address] [address] Sarmad Patino Anion gap [Moles/Vol] 11.5 mmol/L Normal [facility] Comment on above: Performed By: #### U JUVE, LIPID, MG, CMP, DBIL, PHOS #### [facility] [address] [place] [address] Dr. Sarmad Patino AST [Catalytic activity/Vol] 12 U/L Critically low 15-37 [facility] Comment on above: Performed By: #### U JUVE, LIPID, MG, CMP, DBIL, PHOS #### [facility] [address] [place] [address] Dr. Sarmad Patino Bilirubin [Mass/Vol] 0.5 mg/dL Normal 0.2-1.0 [facility] Comment on above: Performed By: #### U JUVE, LIPID, MG, CMP, DBIL, PHOS #### [facility] [address] [place] [address] Dr. Sarmad Patino Calcium [Mass/Vol] 9.6 mg/dL Normal 8.5-10.1 [facility] Comment on above: Performed By: #### U JUVE, LIPID, MG, CMP, DBIL, PHOS #### [facility] [address] [place] [address] Dr. Sarmad Patino Chloride [Moles/Vol] 106 mmol/L Normal 98-107 [facility] Comment on above: Performed By: #### U JUVE, LIPID, MG, CMP, DBIL, PHOS #### [facility] [address] [place] [address] Dr. Sarmad Patino CO2 [Moles/Vol] 29.7 mmol/L Normal 21.0-32.0 [facility] Comment on above: Performed By: #### U JUVE, LIPID, MG, CMP, DBIL, PHOS #### [facility] [address] [address] [address] Sarmad Patino Creatinine [Mass/Vol] 0.77 mg/dL Normal 0.55-1.02 [facility] Comment on above: Performed By: #### U JUVE, LIPID, MG, CMP, DBIL, PHOS #### [facility] [address] [place] [address] Dr. Sarmad Patino EGFR-AF FINNISH >60 Normal >=60 [facility] Comment on above: Performed By: #### U JUVE, LIPID, MG, CMP, DBIL, PHOS #### [facility] [address] [place] [address] Dr. Sarmad Patino EGFR-NON AF FINNISH >60 Normal >=60 [facility] Comment on above: Performed By: #### U JUVE, LIPID, MG, CMP, DBIL, PHOS #### [facility] [address] [place] [address] Dr. Sarmad Patino Globulin (S) [Mass/Vol] 3.4 g/dL Normal [facility] Comment on above: Performed By: #### U JUVE, LIPID, MG, CMP, DBIL, PHOS #### [facility] [address] [place] [address] Dr. Sarmad Patino Glucose [Mass/Vol] 97 mg/dL Normal 74-106 [facility] Comment on above: Performed By: #### U JUVE, LIPID, MG, CMP, DBIL, PHOS #### [facility] [address] [place] [address] Dr. Sarmad Patino Potassium [Moles/Vol] 4.2 mmol/L Normal 3.5-5.1 [facility] Comment on above: Performed By: #### U JUVE, LIPID, MG, CMP, DBIL, PHOS #### [facility] [address] [place] [address] Dr. Sarmad Patino Protein [Mass/Vol] 7.1 g/dL Normal 6.4-8.2 [facility] Comment on above: Performed By: #### U JUVE, LIPID, MG, CMP, DBIL, PHOS #### [facility] [address] [address] [address] Sarmad Patino Sodium [Moles/Vol] 143 mmol/L Normal 136-145 [facility] Comment on above: Performed By: #### U JUVE, LIPID, MG, CMP, DBIL, PHOS #### [facility] [address] [address] [address] Sarmad Patino Urea nitrogen [Mass/Vol] 26.0 mg/dL Critically high 7.0-18.0 [facility] Comment on above: Performed By: #### U JUVE, LIPID, MG, CMP, DBIL, PHOS #### [facility] [address] [place] [address] Dr. Sarmad Patino Urea nitrogen/Creatinine [Mass ratio] 33.8 mg/mg Normal [facility] Comment on above: Performed By: #### U JUVE, LIPID, MG, CMP, DBIL, PHOS #### [facility] [address] [place] [address] Dr. Sarmad Patino URIC ACID SERUMon 07-08-2022 Urate [Mass/Vol] 4.7 mg/dL Normal 2.6-6.0 [facility] Comment on above: Performed By: #### U JUVE, LIPID, MG, CMP, DBIL, PHOS #### [facility] [address] [place] [address] Dr. Sarmad Patino FK506 (TACROLIMUS) WHOLE BLO ODon 06-13-2022 Tacrolimus (FK506), Blood 3.0 ng/mL Normal 2.0-20.0 [facility] Comment on above: Result Comment: Trou gh (immediately following transplant) 15.0 . Trough (steady state, 2 weeks or more after transplant): 3.0 - 8.0 . Performed by LC-MS/MS technology. Performed By: #### D DAVIDSON, MG, PHOS, CMP, LIPID, URIC #### [facility] [address] [place] [address] Dr. Sarmad Patino BK VIRUS PCR QUANTon 023 BKV DNA QUANT PCR PLASMA Negative Normal Negative [facility] Comment on above: Result Comment: No B K DNA detected. . The linear range of the assay is 22 - 100,000,000 IU/mL. Performed By: #### B KVIRUS #### [facility] [address] [place] [address] Dr. Sarmad Patino Log10 BKV DNA Plasma Normal [facility] Comment on above: Performed By: #### B KVIRUS #### [facility] [address] [place] [address] Dr. Sarmad Patino BILIRUBIN CONJUGATED (DIRECT )on 06-10-2022 BILI, CONJUGATED 0.1 mg/dL Normal 0.0-0.2 [facility] Comment on above: Performed By: #### U JUVE, LIPID, MG, CMP, DBIL, PHOS #### [facility] [address] [place] [address] Dr. Sarmad Patino GLYCOHEMOGLOBIN A1Con 2022 ADA RECOMMENDATION SEE BELOW Normal [facility] Comment on above: Result Comment: ADA RECOMMENDED LIMIT 4.0 - 6.0 ADA THERAPEUTIC TARGET < 7.0 ACTION SUGGESTED > 7.0 Performed By: #### D DAVIDSON, MG, PHOS, CMP, LIPID, URIC #### [facility] [address] [place] [address] Dr. Sarmad Patino Glucose [Mass/Vol] 114 mg/dL Normal [facility] Comment on above: Performed By: #### D DAVIDSON, MG, PHOS, CMP, LIPID, URIC #### [facility] [address] [place] [address] Dr. Sarmad Patino HbA1c (Bld) [Mass fraction] 5.6 % Normal 4.5-6.2 [facility] Comment on above: Performed By: #### D DAVIDSON, MG, PHOS, CMP, LIPID, URIC #### [facility] [address] [place] [address] Dr. Sarmad Patino MAGNESIUMon 06-10-2022 Magnesium [Mass/Vol] 1.6 mg/dL Critically low 1.8-2.4 [facility] Comment on above: Performed By: #### U JUVE, LIPID, MG, CMP, DBIL, PHOS #### [facility] [address] [place] [address] Dr. Sarmad Patino PROF 14(COMP METB)on 023 Albumin [Mass/Vol] 3.7 g/dL Normal 3.4-5.0 [facility] Comment on above: Performed By: #### U JUVE, LIPID, MG, CMP, DBIL, PHOS #### [facility] [address] [place] [address] Dr. Sarmad Patino Albumin/Globulin [Mass ratio] 1.1 {ratio} Normal [facility] Comment on above: Performed By: #### U JUVE, LIPID, MG, CMP, DBIL, PHOS #### [facility] [address] [place] [address] Dr. Sarmad Patino ALP [Catalytic activity/Vol] 142 U/L Critically high 46-116 [facility] Comment on above: Performed By: #### U JUVE, LIPID, MG, CMP, DBIL, PHOS #### [facility] [address] [place] [address] Dr. Sarmad Patino ALT [Catalytic activity/Vol] 29 U/L Normal 14-59 [facility] Comment on above: Performed By: #### U JUVE, LIPID, MG, CMP, DBIL, PHOS #### [facility] [address] [place] [address] Dr. Sarmad Patino Anion gap [Moles/Vol] 11.1 mmol/L Normal [facility] Comment on above: Performed By: #### U JUVE, LIPID, MG, CMP, DBIL, PHOS #### [facility] [address] [place] [address] Dr. Sarmad Patino AST [Catalytic activity/Vol] 19 U/L Normal 15-37 [facility] Comment on above: Performed By: #### U JUVE, LIPID, MG, CMP, DBIL, PHOS #### [facility] [address] [place] [address] Dr. Sarmad Patino Bilirubin [Mass/Vol] 0.6 mg/dL Normal 0.2-1.0 [facility] Comment on above: Performed By: #### U JUVE, LIPID, MG, CMP, DBIL, PHOS #### [facility] [address] [address] [address] Sarmad Patino Calcium [Mass/Vol] 9.8 mg/dL Normal 8.5-10.1 [facility] Comment on above: Performed By: #### U JUVE, LIPID, MG, CMP, DBIL, PHOS #### [facility] [address] [address] [address] Sarmad Patino Chloride [Moles/Vol] 103 mmol/L Normal 98-107 [facility] Comment on above: Performed By: #### U JUVE, LIPID, MG, CMP, DBIL, PHOS #### [facility] [address] [place] [address] Dr. Sarmad Patino CO2 [Moles/Vol] 30.7 mmol/L Normal 21.0-32.0 [facility] Comment on above: Performed By: #### U JUVE, LIPID, MG, CMP, DBIL, PHOS #### [facility] [address] [place] [address] Dr. Sarmad Patino Creatinine [Mass/Vol] 0.79 mg/dL Normal 0.55-1.02 [facility] Comment on above: Performed By: #### U JUVE, LIPID, MG, CMP, DBIL, PHOS #### [facility] [address] [place] [address] Dr. Sarmad Patino EGFR-AF FINNISH >60 Normal >=60 [facility] Comment on above: Performed By: #### U JUVE, LIPID, MG, CMP, DBIL, PHOS #### [facility] [address] [place] [address] Dr. Sarmad Pation EGFR-NON AF FINNISH >60 Normal >=60 [facility] Comment on above: Performed By: #### U JUVE, LIPID, MG, CMP, DBIL, PHOS #### [facility] [address] [place] [address] Dr. Sarmad Patino Globulin (S) [Mass/Vol] 3.4 g/dL Normal [facility] Comment on above: Performed By: #### U JUVE, LIPID, MG, CMP, DBIL, PHOS #### [facility] [address] [address] [address] Sarmad Patino Glucose [Mass/Vol] 94 mg/dL Normal 74-106 [facility] Comment on above: Performed By: #### U JUVE, LIPID, MG, CMP, DBIL, PHOS #### [facility] [address] [address] [address] Sarmad Patino Potassium [Moles/Vol] 3.8 mmol/L Normal 3.5-5.1 [facility] Comment on above: Performed By: #### U JUVE, LIPID, MG, CMP, DBIL, PHOS #### [facility] [address] [address] [address] Sarmad Patino Protein [Mass/Vol] 7.1 g/dL Normal 6.4-8.2 [facility] Comment on above: Performed By: #### U JUVE, LIPID, MG, CMP, DBIL, PHOS #### [facility] [address] [address] [address] Sarmad Patino Sodium [Moles/Vol] 141 mmol/L Normal 136-145 [facility] Comment on above: Performed By: #### U JUVE, LIPID, MG, CMP, DBIL, PHOS #### [facility] [address] [address] [address] Sarmad Patino Urea nitrogen [Mass/Vol] 17.0 mg/dL Normal 7.0-18.0 [facility] Comment on above: Performed By: #### U JUVE, LIPID, MG, CMP, DBIL, PHOS #### [facility] [address] [address] [address] Sarmad Patino Urea nitrogen/Creatinine [Mass ratio] 21.5 mg/mg Normal [facility] Comment on above: Performed By: #### U JUVE, LIPID, MG, CMP, DBIL, PHOS #### [facility] [address] [place] [address] Dr. Sarmad Patino URIC ACID SERUMon 06-10-2022 Urate [Mass/Vol] 5.1 mg/dL Normal 2.6-6.0 [facility] Comment on above: Performed By: #### U JUVE, LIPID, MG, CMP, DBIL, PHOS #### [facility] [address] [address] [address] Sarmad Patino BK VIRUS PCR QUANTon 023 BKV DNA QUANT PCR PLASMA Negative Normal Negative [facility] Comment on above: Result Comment: No B K DNA detected. . The linear range of the assay is 22 - 100,000,000 IU/mL. Performed By: #### U JUVE, LIPID, MG, CMP, DBIL, PHOS #### [facility] [address] [address] [address] Sarmad Patino Log10 BKV DNA Plasma Normal [facility] Comment on above: Performed By: #### U JUVE, LIPID, MG, CMP, DBIL, PHOS #### [facility] [address] [place] [address] Dr. Sarmad Patino FK506 (TACROLIMUS) WHOLE BLO ODon 05-13-2022 Tacrolimus (FK506), Blood 4.1 ng/mL Normal 2.0-20.0 [facility] Comment on above: Result Comment: Trou gh (immediately following transplant) 15.0 . Trough (steady state, 2 weeks or more after transplant): 3.0 - 8.0 . Performed by LC-MS/MS technology. Performed By: #### U JUVE, LIPID, MG, CMP, DBIL, PHOS #### [facility] [address] [place] [address] Dr. Sarmad Patino BILIRUBIN CONJUGATED (DIRECT )on 05-10-2022 BILI, CONJUGATED 0.1 mg/dL Normal 0.0-0.2 [facility] Comment on above: Performed By: #### D DAVIDSON, MG, PHOS, CMP, LIPID, URIC #### [facility] [address] [place] [address] Dr. Sarmad Patino GLYCOHEMOGLOBIN A1Con 2022 ADA RECOMMENDATION SEE BELOW Normal [facility] Comment on above: Result Comment: ADA RECOMMENDED LIMIT 4.0 - 6.0 ADA THERAPEUTIC TARGET < 7.0 ACTION SUGGESTED > 7.0 Performed By: #### D DAVIDSON, MG, PHOS, CMP, LIPID, URIC #### [facility] [address] [address] [address] Sarmad Patino Glucose [Mass/Vol] 108 mg/dL Normal [facility] Comment on above: Performed By: #### D DAVIDSON, MG, PHOS, CMP, LIPID, URIC #### [facility] [address] [address] [address] Sarmad Patino HbA1c (Bld) [Mass fraction] 5.4 % Normal 4.5-6.2 [facility] Comment on above: Performed By: #### D DAVIDSON, MG, PHOS, CMP, LIPID, URIC #### [facility] [address] [place] [address] Dr. Sarmad Patino MAGNESIUMon 05-10-2022 Magnesium [Mass/Vol] 1.9 mg/dL Normal 1.8-2.4 [facility] Comment on above: Performed By: #### U JUVE, LIPID, MG, CMP, DBIL, PHOS #### [facility] [address] [place] [address] Dr. Sarmad Patino PROF 14(COMP METB)on 023 Albumin [Mass/Vol] 3.9 g/dL Normal 3.4-5.0 [facility] Comment on above: Performed By: #### D DAVIDSON, MG, PHOS, CMP, LIPID, URIC #### [facility] [address] [place] [address] Dr. Sarmad Patino Albumin/Globulin [Mass ratio] 1.2 {ratio} Normal [facility] Comment on above: Performed By: #### D DAVIDSON, MG, PHOS, CMP, LIPID, URIC #### [facility] [address] [place] [address] Dr. Sarmad Patino ALP [Catalytic activity/Vol] 114 U/L Normal 46-116 [facility] Comment on above: Performed By: #### D DAVIDSON, MG, PHOS, CMP, LIPID, URIC #### [facility] [address] [place] [address] Dr. Sarmad Patino ALT [Catalytic activity/Vol] 18 U/L Normal 14-59 [facility] Comment on above: Performed By: #### D DAVIDSON, MG, PHOS, CMP, LIPID, URIC #### [facility] [address] [address] [address] Sarmad Patino Anion gap [Moles/Vol] 15.9 mmol/L Normal [facility] Comment on above: Performed By: #### D DAVIDSON, MG, PHOS, CMP, LIPID, URIC #### [facility] [address] [place] [address] Dr. Sarmad Patino AST [Catalytic activity/Vol] 17 U/L Normal 15-37 [facility] Comment on above: Performed By: #### D DAVIDSON, MG, PHOS, CMP, LIPID, URIC #### [facility] [address] [place] [address] Dr. Sarmad Patino Bilirubin [Mass/Vol] 0.4 mg/dL Normal 0.2-1.0 [facility] Comment on above: Performed By: #### D DAVIDSON, MG, PHOS, CMP, LIPID, URIC #### [facility] [address] [place] [address] Dr. Sarmad Patino Calcium [Mass/Vol] 9.8 mg/dL Normal 8.5-10.1 [facility] Comment on above: Performed By: #### D DAVIDSON, MG, PHOS, CMP, LIPID, URIC #### [facility] [address] [address] [address] Sarmad Patino Chloride [Moles/Vol] 103 mmol/L Normal 98-107 [facility] Comment on above: Performed By: #### D DAVIDSON, MG, PHOS, CMP, LIPID, URIC #### [facility] [address] [address] [address] Sarmad Patino CO2 [Moles/Vol] 29.2 mmol/L Normal 21.0-32.0 [facility] Comment on above: Performed By: #### D DAVIDSON, MG, PHOS, CMP, LIPID, URIC #### [facility] [address] [place] [address] Dr. Sarmad Patino Creatinine [Mass/Vol] 0.74 mg/dL Normal 0.55-1.02 [facility] Comment on above: Performed By: #### D DAVIDSON, MG, PHOS, CMP, LIPID, URIC #### [facility] [address] [address] [address] Sarmad Patino EGFR-AF FINNISH >60 Normal >=60 [facility] [facility] Comment on above: Performed By: #### D DAVIDSON, MG, PHOS, CMP, LIPID, URIC #### [facility] [address] [address] [address] Sarmad Patino EGFR-NON AF FINNISH >60 Normal >=60 [facility] Comment on above: Performed By: #### D DAVIDSON, MG, PHOS, CMP, LIPID, URIC #### [facility] [address] [place] [address] Dr. Sarmad Patino Globulin (S) [Mass/Vol] 3.2 g/dL Normal [facility] Comment on above: Performed By: #### D DAVIDSON, MG, PHOS, CMP, LIPID, URIC #### [facility] [address] [address] [address] Sarmad Patino Glucose [Mass/Vol] 94 mg/dL Normal 74-106 [facility] Comment on above: Performed By: #### D DAVIDSON, MG, PHOS, CMP, LIPID, URIC #### [facility] [address] [place] [address] Dr. Sarmad Patino Potassium [Moles/Vol] 4.1 mmol/L Normal 3.5-5.1 [facility] Comment on above: Performed By: #### D DAVIDSON, MG, PHOS, CMP, LIPID, URIC #### [facility] [address] [address] [address] Sarmad Patino Protein [Mass/Vol] 7.1 g/dL Normal 6.4-8.2 [facility] Comment on above: Performed By: #### D DAVIDSON, MG, PHOS, CMP, LIPID, URIC #### [facility] [address] [address] [address] Sarmad Patino Sodium [Moles/Vol] 144 mmol/L Normal 136-145 [facility] Comment on above: Performed By: #### D DAVIDSON, MG, PHOS, CMP, LIPID, URIC #### [facility] [address] [address] [address] Sarmad Patino Urea nitrogen [Mass/Vol] 18.0 mg/dL Normal 7.0-18.0 [facility] Comment on above: Performed By: #### D DAVIDSON, MG, PHOS, CMP, LIPID, URIC #### [facility] [address] [address] [address] Sarmad Patino Urea nitrogen/Creatinine [Mass ratio] 24.3 mg/mg Normal [facility] Comment on above: Performed By: #### D DAVIDSON, MG, PHOS, CMP, LIPID, URIC #### [facility] [address] [place] [address] Dr. Sarmad Patino URIC ACID SERUMon 05-10-2022 Urate [Mass/Vol] 5.1 mg/dL Normal 2.6-6.0 [facility] Comment on above: Performed By: #### U JUVE, LIPID, MG, CMP, DBIL, PHOS #### [facility] [address] [address] [address] Sarmad Patino MYCOPHENOLIC ACIDon 04-17-19 Mycophenolic Acid 1.2 ug/mL Normal 1.0-3.5 [facility] Comment on above: Performed By: #### D DAVIDSON, MG, PHOS, CMP, LIPID, URIC #### [facility] [address] [address] [address] Sarmad Patino Mycophenolic Acid Glucuronide 37 ug/mL Normal 15-125 [facility] Comment on above: Result Comment: [facility] 's Reference Range: 35-100 mcg/mL. Performed By: #### D DAVIDSON, MG, PHOS, CMP, LIPID, URIC #### [facility] [address] [place] [address] Dr. Sarmad Patino FK506 (TACROLIMUS) WHOLE BLO ODon 04-10-2022 Tacrolimus (FK506), Blood 4.2 ng/mL Normal 2.0-20.0 [facility] Comment on above: Result Comment: Trou gh (immediately following transplant) 15.0 . Trough (steady state, 2 weeks or more after transplant): 3.0 - 8.0 . Performed by LC-MS/MS technology. Performed By: #### D DAVIDSON, MG, PHOS, CMP, LIPID, URIC #### [facility] [address] [place] [address] Dr. Sarmad Patino BILIRUBIN CONJUGATED (DIRECT )on 04-08-2022 BILI, CONJUGATED 0.1 mg/dL Normal 0.0-0.2 [facility] Comment on above: Performed By: #### U JUVE, LIPID, MG, CMP, DBIL, PHOS #### [facility] [address] [place] [address] Dr. Sarmad Patino CBC AUTO DIFFon 04-08-2022 BASO # 0.0 103/ul Normal 0.0-0.1 [facility] Comment on above: Performed By: #### D DAVIDSON, MG, PHOS, CMP, LIPID, URIC #### [facility] [address] [place] [address] Dr. Sarmad Patino Basophils/100 WBC (Bld) 0.3 % Normal 0.2-2.0 [facility] Comment on above: Performed By: #### D DAVIDSON, MG, PHOS, CMP, LIPID, URIC #### [facility] [address] [place] [address] Dr. Sarmad Patino EO # 0.1 103/ul Normal 0.0-0.7 [facility] Comment on above: Performed By: #### D DAVIDSON, MG, PHOS, CMP, LIPID, URIC #### [facility] [address] [place] [address] Dr. Sarmad Patino Eosinophils/100 WBC (Bld) 1.4 % Normal 0.9-7.0 [facility] Comment on above: Performed By: #### D DAVIDSON, MG, PHOS, CMP, LIPID, URIC #### [facility] [address] [place] [address] Dr. aSrmad Patino Erythrocyte distribution width (RBC) [Ratio] 15.8 % Critically high 11.0-15.0 [facility] Comment on above: Performed By: #### D DAVIDSON, MG, PHOS, CMP, LIPID, URIC #### [facility] [address] [address] [address] Sarmad Patino Hematocrit (Bld) [Volume fraction] 43.0 % Normal 36.0-48.0 [facility] Comment on above: Performed By: #### D DAVIDSON, MG, PHOS, CMP, LIPID, URIC #### [facility] [address] [address] [address] Sarmad Patino Hemoglobin (Bld) [Mass/Vol] 15.0 g/dL Normal 12.0-16.0 [facility] Comment on above: Performed By: #### D DAVIDSON, MG, PHOS, CMP, LIPID, URIC #### [facility] [address] [place] [address] Dr. Sarmad Patino IG # 0.01 10e3/ul Normal 0.00-0.03 [facility] Comment on above: Performed By: #### D DAVIDSON, MG, PHOS, CMP, LIPID, URIC #### [facility] [address] [place] [address] Dr. Sarmad Patino IG % 0.1 % Normal 0.0-0.5 [facility] Comment on above: Performed By: #### D DAVIDSON, MG, PHOS, CMP, LIPID, URIC #### [facility] [address] [place] [address] Dr. Sarmad Patino LYMPH # 1.3 103/ul Normal 1.2-3.8 [facility] Comment on above: Performed By: #### D DAVIDSON, MG, PHOS, CMP, LIPID, URIC #### [facility] [address] [place] [address] Dr. Sarmad Patino Lymphocytes/100 WBC (Bld) 18.3 % Critically low 20.5-60.0 [facility] Comment on above: Performed By: #### D DAVIDSON, MG, PHOS, CMP, LIPID, URIC #### [facility] [address] [place] [address] Dr. Sarmad Patino MANUAL DIFF REQ NO Normal [facility] Comment on above: Performed By: #### D DAVIDSON, MG, PHOS, CMP, LIPID, URIC #### [facility] [address] [address] [address] Sarmad Patino MCH (RBC) [Entitic mass] 29.7 pg Normal 26.7-34.0 [facility] Comment on above: Performed By: #### D DAVIDSON, MG, PHOS, CMP, LIPID, URIC #### [facility] [address] [place] [address] Dr. Sarmad Patino MCHC (RBC) [Mass/Vol] 34.9 g/dL Normal 29.9-35.2 [facility] Comment on above: Performed By: #### D DAVIDSON, MG, PHOS, CMP, LIPID, URIC #### [facility] [address] [place] [address] Dr. Sarmad Patino MCV (RBC) [Entitic vol] 85.1 fL Normal 81.0-99.0 [facility] Comment on above: Performed By: #### D DAVIDSON, MG, PHOS, CMP, LIPID, URIC #### [facility] [address] [place] [address] Dr. Sarmad Patino MONO # 0.7 103/ul Normal 0.3-0.8 [facility] Comment on above: Performed By: #### D DAVIDSON, MG, PHOS, CMP, LIPID, URIC #### [facility] [address] [place] [address] Dr. Sarmad Patino Monocytes/100 WBC (Bld) 9.8 % Normal 1.7-12.0 [facility] Comment on above: Performed By: #### D DAVIDSON, MG, PHOS, CMP, LIPID, URIC #### [facility] [address] [place] [address] Dr. Sarmad Patino NEUT # 5.1 103/ul Normal 1.4-6.5 [facility] Comment on above: Performed By: #### D DAVIDSON, MG, PHOS, CMP, LIPID, URIC #### [facility] [address] [place] [address] Dr. Sarmad Patino Neutrophils/100 WBC (Bld) 70.1 % Normal 43.0-75.0 [facility] Comment on above: Performed By: #### D DAVIDSON, MG, PHOS, CMP, LIPID, URIC #### [facility] [address] [address] [address] Sarmad Patino Platelet mean volume (Bld) [Entitic vol] 10.4 fL Normal 9.5-13.5 [facility] Comment on above: Performed By: #### D DAVIDSON, MG, PHOS, CMP, LIPID, URIC #### [facility] [address] [place] [address] Dr. Sarmad Patino PLT 229 103/ul Normal 150-450 [facility] Comment on above: Performed By: #### D DAVIDSON, MG, PHOS, CMP, LIPID, URIC #### [facility] [address] [place] [address] Dr. Sarmad Patino RBC 5.05 106/ul Normal 4.20-5.40 [facility] Comment on above: Performed By: #### D DAVIDSON, MG, PHOS, CMP, LIPID, URIC #### [facility] [address] [place] [address] Dr. Sarmad Patino WBC 7.2 103/ul Normal 4.0-11.0 [facility] Comment on above: Performed By: #### D DAVIDSON, MG, PHOS, CMP, LIPID, URIC #### [facility] [address] [place] [address] Dr. Sarmad Patino LIPID PROFILEon 04-08-2022 CHOL-HDL RATIO NORM SEE BELOW Normal [facility] Comment on above: Result Comment: 3.3 - 4.4 LOW RISK 4.4 - 7.1 AVERAGE RISK 7.1 - 11.0 MODERATE RISK >11.0 HIGH RISK Performed By: #### U JUVE, LIPID, MG, CMP, DBIL, PHOS #### [facility] [address] [place] [address] Dr. Sarmad Patino Cholesterol [Mass/Vol] 134 mg/dL Normal <=200 [facility] Comment on above: Performed By: #### U JUVE, LIPID, MG, CMP, DBIL, PHOS #### [facility] [address] [address] [address] Sarmad Patino Cholesterol in HDL [Mass/Vol] 55 mg/dL Normal 40-60 [facility] Comment on above: Performed By: #### U JUVE, LIPID, MG, CMP, DBIL, PHOS #### [facility] [address] [address] [address] Sarmad Patino Cholesterol in LDL [Mass/Vol] 56.6 mg/dL Normal [facility] Comment on above: Performed By: #### U JUVE, LIPID, MG, CMP, DBIL, PHOS #### [facility] [address] [address] [address] Sarmad Patino Cholesterol.total/Cho lesterol in HDL [Mass ratio] 2.4 {ratio} Normal [facility] Comment on above: Performed By: #### U JUVE, LIPID, MG, CMP, DBIL, PHOS #### [facility] [address] [address] [address] Sarmad Patino HDL NORMAL > or = 60 mg/dl - LO W CARDIOVASCULAR RISK <40 mg/dl - HIGH CARDIOVASCULAR RISK Normal [facility] Comment on above: Performed By: #### U JUVE, LIPID, MG, CMP, DBIL, PHOS #### [facility] [address] [address] [address] Sarmad Patino LDL CALC NORMAL SEE BELOW Normal [facility] Comment on above: Result Comment: <100 mg/dl OPTIMAL 100 - 129 mg/dl NEAR OR ABOVE OPTIMAL 130 - 159 mg/dl BORDERLINE HIGH 160 - 189 mg/dl HIGH >190 mg/dl VERY HIGH Performed By: #### U JUVE, LIPID, MG, CMP, DBIL, PHOS #### [facility] [address] [address] [address] Sarmad Patino Triglyceride [Mass/Vol] 112 mg/dL Normal <=150 [facility] Comment on above: Performed By: #### U JUVE, LIPID, MG, CMP, DBIL, PHOS #### [facility] [address] [address] [address] Sarmad Patino VLDL CALC 22.4 mg/dL Normal [facility] Comment on above: Performed By: #### U JUVE, LIPID, MG, CMP, DBIL, PHOS #### [facility] [address] [place] [address] Dr. Sarmad Patino MAGNESIUMon 04-08-2022 Magnesium [Mass/Vol] 1.8 mg/dL Normal 1.8-2.4 [facility] Comment on above: Performed By: #### U JUVE, LIPID, MG, CMP, DBIL, PHOS #### [facility] [address] [place] [address] Dr. Sarmad Patino PHOSPHORUSon 04-08-2022 Phosphate [Mass/Vol] 3.9 mg/dL Normal 2.6-4.7 [facility] Comment on above: Performed By: #### U JUVE, LIPID, MG, CMP, DBIL, PHOS #### [facility] [address] [place] [address] Dr. Sarmad Patino PROF 14(COMP METB)on 023 Albumin [Mass/Vol] 4.0 g/dL Normal 3.4-5.0 [facility] Comment on above: Performed By: #### U JUVE, LIPID, MG, CMP, DBIL, PHOS #### [facility] [address] [place] [address] Dr. Sarmad Patino Albumin/Globulin [Mass ratio] 1.3 {ratio} Normal [facility] Comment on above: Performed By: #### U JUVE, LIPID, MG, CMP, DBIL, PHOS #### [facility] [address] [place] [address] Dr. Sarmad Patino ALP [Catalytic activity/Vol] 108 U/L Normal 46-116 [facility] Comment on above: Performed By: #### U JUVE, LIPID, MG, CMP, DBIL, PHOS #### [facility] [address] [place] [address] Dr. Sarmad Patino ALT [Catalytic activity/Vol] 15 U/L Normal 14-59 [facility] Comment on above: Performed By: #### U JUVE, LIPID, MG, CMP, DBIL, PHOS #### [facility] [address] [place] [address] Dr. Sarmad Patino Anion gap [Moles/Vol] 14.3 mmol/L Normal [facility] Comment on above: Performed By: #### U JUVE, LIPID, MG, CMP, DBIL, PHOS #### [facility] [address] [place] [address] Dr. Sarmad Patino AST [Catalytic activity/Vol] 15 U/L Normal 15-37 [facility] Comment on above: Performed By: #### U JUVE, LIPID, MG, CMP, DBIL, PHOS #### [facility] [address] [place] [address] Dr. Sarmad Patino Bilirubin [Mass/Vol] 0.5 mg/dL Normal 0.2-1.0 [facility] Comment on above: Performed By: #### U JUVE, LIPID, MG, CMP, DBIL, PHOS #### [facility] [address] [place] [address] Dr. Sarmad Patino Calcium [Mass/Vol] 9.7 mg/dL Normal 8.5-10.1 [facility] Comment on above: Performed By: #### U JUVE, LIPID, MG, CMP, DBIL, PHOS #### [facility] [address] [place] [address] Dr. Sarmad Patino Chloride [Moles/Vol] 105 mmol/L Normal 98-107 [facility] Comment on above: Performed By: #### U JUVE, LIPID, MG, CMP, DBIL, PHOS #### [facility] [address] [place] [address] Dr. Sarmad Patino CO2 [Moles/Vol] 26.6 mmol/L Normal 21.0-32.0 [facility] Comment on above: Performed By: #### U JUVE, LIPID, MG, CMP, DBIL, PHOS #### [facility] [address] [place] [address] Dr. Sarmad Patino Creatinine [Mass/Vol] 0.80 mg/dL Normal 0.55-1.02 [facility] Comment on above: Performed By: #### U JUVE, LIPID, MG, CMP, DBIL, PHOS #### [facility] [address] [address] [address] Sarmad Patino EGFR-AF FINNISH >60 Normal >=60 [facility] Comment on above: Performed By: #### U JUVE, LIPID, MG, CMP, DBIL, PHOS #### [facility] [address] [place] [address] Dr. Sarmad Patino EGFR-NON AF FINNISH >60 Normal >=60 [facility] Comment on above: Performed By: #### U JUVE, LIPID, MG, CMP, DBIL, PHOS #### [facility] [address] [place] [address] Dr. Sarmad Patino Globulin (S) [Mass/Vol] 3.0 g/dL Normal [facility] Comment on above: Performed By: #### U JUVE, LIPID, MG, CMP, DBIL, PHOS #### [facility] [address] [place] [address] Dr. Sarmad Patino Glucose [Mass/Vol] 99 mg/dL Normal 74-106 [facility] Comment on above: Performed By: #### U JUVE, LIPID, MG, CMP, DBIL, PHOS #### [facility] [address] [place] [address] Dr. Sarmad Patino Potassium [Moles/Vol] 3.9 mmol/L Normal 3.5-5.1 [facility] Comment on above: Performed By: #### U JUVE, LIPID, MG, CMP, DBIL, PHOS #### [facility] [address] [address] [address] Sarmad Patino Protein [Mass/Vol] 7.0 g/dL Normal 6.4-8.2 [facility] Comment on above: Performed By: #### U JUVE, LIPID, MG, CMP, DBIL, PHOS #### [facility] [address] [place] [address] Dr. Sarmad Patino Sodium [Moles/Vol] 142 mmol/L Normal 136-145 [facility] Comment on above: Performed By: #### U JUVE, LIPID, MG, CMP, DBIL, PHOS #### [facility] [address] [address] [address] Sarmad Patino Urea nitrogen [Mass/Vol] 14.0 mg/dL Normal 7.0-18.0 [facility] Comment on above: Performed By: #### U JUVE, LIPID, MG, CMP, DBIL, PHOS #### [facility] [address] [address] [address] Sarmad Patino Urea nitrogen/Creatinine [Mass ratio] 17.5 mg/mg Normal [facility] Comment on above: Performed By: #### U JUVE, LIPID, MG, CMP, DBIL, PHOS #### [facility] [address] [address] [address] Sarmad Patino URIC ACID SERUMon 04-08-2022 Urate [Mass/Vol] 5.2 mg/dL Normal 2.6-6.0 [facility] Comment on above: Performed By: #### U JUVE, LIPID, MG, CMP, DBIL, PHOS #### [facility] [address] [place] [address] Dr. Sarmad Patino BK VIRUS PCR QUANTon 022 BKV DNA QUANT PCR PLASMA Negative Normal Negative [facility] Comment on above: Result Comment: No B K DNA detected. . The linear range of the assay is 22 - 100,000,000 IU/mL. Performed By: #### D DAVIDSON, MG, PHOS, CMP, LIPID, URIC #### [facility] [address] [place] [address] Dr. Sarmad Patino Log10 BKV DNA Plasma Normal [facility] Comment on above: Performed By: #### D DAVIDSON, MG, PHOS, CMP, LIPID, URIC #### [facility] [address] [place] [address] Dr. Sarmad Patino FK506 (TACROLIMUS) WHOLE BLO ODon 03-13-2022 Tacrolimus (FK506), Blood 5.0 ng/mL Normal 2.0-20.0 [facility] Comment on above: Result Comment: Trou gh (immediately following transplant) 15.0 . Trough (steady state, 2 weeks or more after transplant): 3.0 - 8.0 . Performed by LC-MS/MS technology. Performed By: #### D DAVIDSON, MG, PHOS, CMP, LIPID, URIC #### [facility] [address] [place] [address] Dr. Sarmad Patino GLYCOHEMOGLOBIN A1Con 2021 ADA RECOMMENDATION SEE BELOW Normal [facility] Comment on above: Result Comment: ADA RECOMMENDED LIMIT 4.0 - 6.0 ADA THERAPEUTIC TARGET < 7.0 ACTION SUGGESTED > 7.0 Performed By: #### D DAVIDSON, MG, PHOS, CMP, LIPID, URIC #### [facility] [address] [address] [address] Sarmad Patino Glucose [Mass/Vol] 111 mg/dL Normal [facility] Comment on above: Performed By: #### D DAVIDSON, MG, PHOS, CMP, LIPID, URIC #### [facility] [address] [place] [address] Dr. Sarmad Patino HbA1c (Bld) [Mass fraction] 5.5 % Normal 4.5-6.2 [facility] Comment on above: Performed By: #### D DAVIDSON, MG, PHOS, CMP, LIPID, URIC #### [facility] [address] [place] [address] Dr. Sarmad Patino LIVER PROFILEon 03-11-2022 Albumin [Mass/Vol] 3.7 g/dL Normal 3.4-5.0 [facility] Comment on above: Performed By: #### D DAVIDSON, MG, PHOS, CMP, LIPID, URIC #### [facility] [address] [place] [address] Dr. Sarmad Patino Albumin/Globulin [Mass ratio] 1.1 {ratio} Normal [facility] Comment on above: Performed By: #### D DAVIDSON, MG, PHOS, CMP, LIPID, URIC #### [facility] [address] [place] [address] Dr. Sarmad Patino ALP [Catalytic activity/Vol] 124 U/L Critically high 46-116 [facility] Comment on above: Performed By: #### D DAVIDSON, MG, PHOS, CMP, LIPID, URIC #### [facility] [address] [place] [address] Dr. Sarmad Patino ALT [Catalytic activity/Vol] 17 U/L Normal 14-59 [facility] Comment on above: Performed By: #### D DAVIDSON, MG, PHOS, CMP, LIPID, URIC #### [facility] [address] [place] [address] Dr. Sarmad Patino AST [Catalytic activity/Vol] 16 U/L Normal 15-37 [facility] Comment on above: Performed By: #### D DAVIDSON, MG, PHOS, CMP, LIPID, URIC #### [facility] [address] [place] [address] Dr. Sarmad Patino BILI, CONJUGATED 0.2 mg/dL Normal 0.0-0.2 [facility] Comment on above: Performed By: #### D DAVIDSON, MG, PHOS, CMP, LIPID, URIC #### [facility] [address] [place] [address] Dr. Sarmad Patino Bilirubin [Mass/Vol] 0.6 mg/dL Normal 0.2-1.0 [facility] Comment on above: Performed By: #### D DAVIDSON, MG, PHOS, CMP, LIPID, URIC #### [facility] [address] [place] [address] Dr. Sarmad Patino Globulin (S) [Mass/Vol] 3.4 g/dL Normal [facility] Comment on above: Performed By: #### D DAVIDSON, MG, PHOS, CMP, LIPID, URIC #### [facility] [address] [place] [address] Dr. Sarmad Patino Protein [Mass/Vol] 7.1 g/dL Normal 6.4-8.2 [facility] Comment on above: Performed By: #### D DAVIDSON, MG, PHOS, CMP, LIPID, URIC #### [facility] [address] [place] [address] Dr. Sarmad Patino MAGNESIUMon 03-11-2022 Magnesium [Mass/Vol] 1.6 mg/dL Critically low 1.8-2.4 [facility] Comment on above: Performed By: #### D DAVIDSON, MG, PHOS, CMP, LIPID, URIC #### [facility] [address] [address] [address] Sarmad Patino PHOSPHORUSon 03-11-2022 Phosphate [Mass/Vol] 3.5 mg/dL Normal 2.6-4.7 [facility] Comment on above: Performed By: #### D DAVIDSON, MG, PHOS, CMP, LIPID, URIC #### [facility] [address] [address] [address] Sarmad Patino URIC ACID SERUMon 03-11-2022 Urate [Mass/Vol] 5.3 mg/dL Normal 2.6-6.0 [facility] Comment on above: Performed By: #### D DAVIDSON, MG, PHOS, CMP, LIPID, URIC #### [facility] [address] [address] [address] Sarmad Patino MYCOPHENOLIC ACIDon 02-19-20 22 Mycophenolic Acid 1.5 ug/mL Normal 1.0-3.5 [facility] Comment on above: Performed By: #### D DAVIDSON, MG, PHOS, CMP, LIPID, URIC #### [facility] [address] [address] [address] Sarmad Patino Mycophenolic Acid Glucuronide 32 ug/mL Normal 15-125 [facility] Comment on above: Result Comment: [facility] 's Reference Range: 35-100 mcg/mL. Performed By: #### D DAVIDSON, MG, PHOS, CMP, LIPID, URIC #### [facility] [address] [place] [address] Dr. Sarmad Patino BK VIRUS PCR QUANTon 022 BKV DNA QUANT PCR PLASMA Negative Normal Negative [facility] Comment on above: Result Comment: No B K DNA detected. . The linear range of the assay is 22 - 100,000,000 IU/mL. Performed By: #### D DAVIDSON, MG, PHOS, CMP, LIPID, URIC #### [facility] [address] [place] [address] Dr. Sarmad Patino Log10 BKV DNA Plasma Normal [facility] Comment on above: Performed By: #### D DAVIDSON, MG, PHOS, CMP, LIPID, URIC #### [facility] [address] [place] [address] Dr. Sarmad Patino FK506 (TACROLIMUS) WHOLE BLO ODon 02-11-2022 Tacrolimus (FK506), Blood 4.4 ng/mL Normal 2.0-20.0 [facility] Comment on above: Result Comment: Trou gh (immediately following transplant) 15.0 . Trough (steady state, 2 weeks or more after transplant): 3.0 - 8.0 . Performed by LC-MS/MS technology. Performed By: #### U JUVE, LIPID, MG, CMP, DBIL, PHOS #### [facility] [address] [place] [address] Dr. Sarmad Patino BILIRUBIN CONJUGATED (DIRECT )on 02-08-2022 BILI, CONJUGATED 0.1 mg/dL Normal 0.0-0.2 [facility] Comment on above: Performed By: #### D DAVIDSON, MG, PHOS, CMP, LIPID, URIC #### [facility] [address] [place] [address] Dr. Sarmad Patino CBC AUTO DIFFon 02-08-2022 BASO # 0.0 103/ul Normal 0.0-0.1 [facility] Comment on above: Performed By: #### D DAVIDSON, MG, PHOS, CMP, LIPID, URIC #### [facility] [address] [place] [address] Dr. Sarmad Patino Basophils/100 WBC (Bld) 0.3 % Normal 0.2-2.0 [facility] Comment on above: Performed By: #### D DAVIDSON, MG, PHOS, CMP, LIPID, URIC #### [facility] [address] [place] [address] Dr. Sarmad Patino EO # 0.1 103/ul Normal 0.0-0.7 [facility] Comment on above: Performed By: #### D DAVIDSON, MG, PHOS, CMP, LIPID, URIC #### [facility] [address] [place] [address] Dr. Sarmad Patino Eosinophils/100 WBC (Bld) 1.0 % Normal 0.9-7.0 [facility] Comment on above: Performed By: #### D DAVIDSON, MG, PHOS, CMP, LIPID, URIC #### [facility] [address] [address] [address] Sarmad Patino Erythrocyte distribution width (RBC) [Ratio] 15.9 % Critically high 11.0-15.0 [facility] Comment on above: Performed By: #### D DAVIDSON, MG, PHOS, CMP, LIPID, URIC #### [facility] [address] [address] [address] Sarmad Patino Hematocrit (Bld) [Volume fraction] 42.2 % Normal 36.0-48.0 [facility] Comment on above: Performed By: #### D DAVIDSON, MG, PHOS, CMP, LIPID, URIC #### [facility] [address] [place] [address] Dr. Sarmad Patino Hemoglobin (Bld) [Mass/Vol] 13.8 g/dL Normal 12.0-16.0 [facility] Comment on above: Performed By: #### D DAVIDSON, MG, PHOS, CMP, LIPID, URIC #### [facility] [address] [place] [address] Dr. Sarmad Patino IG # 0.10 10e3/ul Critically high 0.00-0.03 [facility] Comment on above: Performed By: #### D DAVIDSON, MG, PHOS, CMP, LIPID, URIC #### [facility] [address] [place] [address] Dr. Sarmad Patino IG % 1.1 % Critically high 0.0-0.5 [facility] Comment on above: Performed By: #### D DAVIDSON, MG, PHOS, CMP, LIPID, URIC #### [facility] [address] [place] [address] Dr. Sarmad Patino LYMPH # 1.2 103/ul Normal 1.2-3.8 [facility] Comment on above: Performed By: #### D DAVIDSON, MG, PHOS, CMP, LIPID, URIC #### [facility] [address] [place] [address] Dr. Sarmad Patino Lymphocytes/100 WBC (Bld) 12.6 % Critically low 20.5-60.0 [facility] Comment on above: Performed By: #### D DAVIDSON, MG, PHOS, CMP, LIPID, URIC #### [facility] [address] [place] [address] Dr. Sarmad Patino MANUAL DIFF REQ NO Normal [facility] Comment on above: Performed By: #### D DAVIDSON, MG, PHOS, CMP, LIPID, URIC #### [facility] [address] [place] [address] Dr. Sarmad Patino MCH (RBC) [Entitic mass] 28.3 pg Normal 26.7-34.0 [facility] Comment on above: Performed By: #### D DAVIDSON, MG, PHOS, CMP, LIPID, URIC #### [facility] [address] [place] [address] Dr. Sarmad Patino MCHC (RBC) [Mass/Vol] 32.7 g/dL Normal 29.9-35.2 [facility] Comment on above: Performed By: #### D DAVIDSON, MG, PHOS, CMP, LIPID, URIC #### [facility] [address] [place] [address] Dr. Sarmad Patino MCV (RBC) [Entitic vol] 86.7 fL Normal 81.0-99.0 [facility] Comment on above: Performed By: #### D DAVIDSON, MG, PHOS, CMP, LIPID, URIC #### [facility] [address] [place] [address] Dr. Sarmad Patino MONO # 1.0 103/ul Critically high 0.3-0.8 [facility] Comment on above: Performed By: #### D DAVIDSON, MG, PHOS, CMP, LIPID, URIC #### [facility] [address] [place] [address] Dr. Sarmad Patino Monocytes/100 WBC (Bld) 10.7 % Normal 1.7-12.0 [facility] Comment on above: Performed By: #### D DAVIDSON, MG, PHOS, CMP, LIPID, URIC #### [facility] [address] [place] [address] Dr. Sarmad Patino NEUT # 6.9 103/ul Critically high 1.4-6.5 [facility] Comment on above: Performed By: #### D DAVIDSON, MG, PHOS, CMP, LIPID, URIC #### [facility] [address] [address] [address] Sarmad Patino Neutrophils/100 WBC (Bld) 74.3 % Normal 43.0-75.0 [facility] Comment on above: Performed By: #### D DAVIDSON, MG, PHOS, CMP, LIPID, URIC #### [facility] [address] [address] [address] Sarmad Patino Platelet mean volume (Bld) [Entitic vol] 11.1 fL Normal 9.5-13.5 [facility] Comment on above: Performed By: #### D DAVIDSON, MG, PHOS, CMP, LIPID, URIC #### [facility] [address] [address] [address] Sarmad Patino PLT 307 103/ul Normal 150-450 [facility] Comment on above: Performed By: #### D DAVIDSON, MG, PHOS, CMP, LIPID, URIC #### [facility] [address] [address] [address] Sarmad Patino RBC 4.87 106/ul Normal 4.20-5.40 [facility] Comment on above: Performed By: #### D DAVIDSON, MG, PHOS, CMP, LIPID, URIC #### [facility] [address] [address] [address] Sarmad Patino WBC 9.3 103/ul Normal 4.0-11.0 [facility] Comment on above: Performed By: #### D DAVIDSON, MG, PHOS, CMP, LIPID, URIC #### [facility] [address] [address] [address] Sarmad Patino GLYCOHEMOGLOBIN A1Con 2021 ADA RECOMMENDATION SEE BELOW Normal [facility] Comment on above: Result Comment: ADA RECOMMENDED LIMIT 4.0 - 6.0 ADA THERAPEUTIC TARGET < 7.0 ACTION SUGGESTED > 7.0 Performed By: #### D DAVIDSON, MG, PHOS, CMP, LIPID, URIC #### [facility] [address] [address] [address] Sarmad Patino Glucose [Mass/Vol] 134 mg/dL Normal [facility] Comment on above: Performed By: #### D DAVIDSON, MG, PHOS, CMP, LIPID, URIC #### [facility] [address] [address] [address] Sarmad Patino HbA1c (Bld) [Mass fraction] 6.3 % Critically high 4.5-6.2 [facility] Comment on above: Performed By: #### D DAVIDSON, MG, PHOS, CMP, LIPID, URIC #### [facility] [address] [address] [address] Sarmad Patino LIPID PROFILEon 02-08-2022 CHOL-HDL RATIO NORM SEE BELOW Normal [facility] Comment on above: Result Comment: 3.3 - 4.4 LOW RISK 4.4 - 7.1 AVERAGE RISK 7.1 - 11.0 MODERATE RISK >11.0 HIGH RISK Performed By: #### D DAVIDSON, MG, PHOS, CMP, LIPID, URIC #### [facility] [address] [place] [address] Dr. Sarmad Patino Cholesterol [Mass/Vol] 180 mg/dL Normal <=200 [facility] Comment on above: Performed By: #### D DAVIDSON, MG, PHOS, CMP, LIPID, URIC #### [facility] [address] [address] [address] Sarmad Patino Cholesterol in HDL [Mass/Vol] 58 mg/dL Normal 40-60 [facility] Comment on above: Performed By: #### D DAVIDSON, MG, PHOS, CMP, LIPID, URIC #### [facility] [address] [address] [address] Sarmad Patino Cholesterol in LDL [Mass/Vol] 86.6 mg/dL Normal [facility] Comment on above: Performed By: #### D DAVIDSON, MG, PHOS, CMP, LIPID, URIC #### [facility] [address] [address] [address] Sarmad Patino Cholesterol.total/Cho lesterol in HDL [Mass ratio] 3.1 {ratio} Normal [facility] Comment on above: Performed By: #### D DAVIDSON, MG, PHOS, CMP, LIPID, URIC #### [facility] [address] [address] [address] Sarmad Patino HDL NORMAL > or = 60 mg/dl - LO W CARDIOVASCULAR RISK <40 mg/dl - HIGH CARDIOVASCULAR RISK Normal [facility] Comment on above: Performed By: #### D DAVIDSON, MG, PHOS, CMP, LIPID, URIC #### [facility] [address] [address] [address] Sarmad Patino LDL CALC NORMAL SEE BELOW Normal [facility] Comment on above: Result Comment: <100 mg/dl OPTIMAL 100 - 129 mg/dl NEAR OR ABOVE OPTIMAL 130 - 159 mg/dl BORDERLINE HIGH 160 - 189 mg/dl HIGH >190 mg/dl VERY HIGH Performed By: #### D DAVIDSON, MG, PHOS, CMP, LIPID, URIC #### [facility] [address] [address] [address] Sarmad Patino Triglyceride [Mass/Vol] 177 mg/dL Critically high <=150 [facility] Comment on above: Performed By: #### D DAVIDSON, MG, PHOS, CMP, LIPID, URIC #### [facility] [address] [address] [address] Sarmad Patino VLDL CALC 35.4 mg/dL Normal [facility] Comment on above: Performed By: #### D DAVIDSON, MG, PHOS, CMP, LIPID, URIC #### [facility] [address] [address] [address] Sarmad Patino MAGNESIUMon 02-08-2022 Magnesium [Mass/Vol] 1.8 mg/dL Normal 1.8-2.4 [facility] Comment on above: Performed By: #### D DAVIDSON, MG, PHOS, CMP, LIPID, URIC #### [facility] [address] [place] [address] Dr. Sarmad Patino PHOSPHORUSon 02-08-2022 Phosphate [Mass/Vol] 3.3 mg/dL Normal 2.6-4.7 [facility] Comment on above: Performed By: #### D DAVIDSON, MG, PHOS, CMP, LIPID, URIC #### [facility] [address] [place] [address] Dr. Sarmad Patino PROF 14(COMP METB)on 022 Albumin [Mass/Vol] 3.8 g/dL Normal 3.4-5.0 [facility] Comment on above: Performed By: #### D DAVIDSON, MG, PHOS, CMP, LIPID, URIC #### [facility] [address] [place] [address] Dr. Sarmad Patino Albumin/Globulin [Mass ratio] 1.3 {ratio} Normal [facility] Comment on above: Performed By: #### D DAVIDSON, MG, PHOS, CMP, LIPID, URIC #### [facility] [address] [place] [address] Dr. Sarmad Patino ALP [Catalytic activity/Vol] 144 U/L Critically high 46-116 [facility] Comment on above: Performed By: #### D DAVIDSON, MG, PHOS, CMP, LIPID, URIC #### [facility] [address] [place] [address] Dr. Sarmad Patino ALT [Catalytic activity/Vol] 24 U/L Normal 14-59 [facility] Comment on above: Performed By: #### D DAVIDSON, MG, PHOS, CMP, LIPID, URIC #### [facility] [address] [place] [address] Dr. Sarmad Patino Anion gap [Moles/Vol] 13.7 mmol/L Normal [facility] Comment on above: Performed By: #### D DAVIDSON, MG, PHOS, CMP, LIPID, URIC #### [facility] [address] [place] [address] Dr. Sarmad Patino AST [Catalytic activity/Vol] 19 U/L Normal 15-37 [facility] Comment on above: Performed By: #### D DAVIDSON, MG, PHOS, CMP, LIPID, URIC #### [facility] [address] [place] [address] Dr. Sarmad Patino Bilirubin [Mass/Vol] 0.5 mg/dL Normal 0.2-1.0 [facility] Comment on above: Performed By: #### D DAVIDSON, MG, PHOS, CMP, LIPID, URIC #### [facility] [address] [address] [address] Sarmad Patino Calcium [Mass/Vol] 9.6 mg/dL Normal 8.5-10.1 [facility] Comment on above: Performed By: #### D DAVIDSON, MG, PHOS, CMP, LIPID, URIC #### [facility] [address] [place] [address] Dr. Sarmad Patino Chloride [Moles/Vol] 103 mmol/L Normal 98-107 [facility] Comment on above: Performed By: #### D DAVIDSON, MG, PHOS, CMP, LIPID, URIC #### [facility] [address] [address] [address] Sarmad Patino CO2 [Moles/Vol] 26.6 mmol/L Normal 21.0-32.0 [facility] Comment on above: Performed By: #### D DAVIDSON, MG, PHOS, CMP, LIPID, URIC #### [facility] [address] [place] [address] Dr. Sarmad Patino Creatinine [Mass/Vol] 0.75 mg/dL Normal 0.55-1.02 [facility] Comment on above: Performed By: #### D DAVIDSON, MG, PHOS, CMP, LIPID, URIC #### [facility] [address] [place] [address] Dr. Sarmad Patino EGFR-AF FINNISH >60 Normal >=60 [facility] Comment on above: Performed By: #### D DAVIDSON, MG, PHOS, CMP, LIPID, URIC #### [facility] [address] [place] [address] Dr. Sarmad Patino EGFR-NON AF FINNISH >60 Normal >=60 [facility] Comment on above: Performed By: #### D DAVIDSON, MG, PHOS, CMP, LIPID, URIC #### [facility] [address] [place] [address] Dr. Sarmad Patino Globulin (S) [Mass/Vol] 3.0 g/dL Normal [facility] Comment on above: Performed By: #### D DAVIDSON, MG, PHOS, CMP, LIPID, URIC #### [facility] [address] [address] [address] Sarmad Patino Glucose [Mass/Vol] 99 mg/dL Normal 74-106 [facility] Comment on above: Performed By: #### D DAVIDSON, MG, PHOS, CMP, LIPID, URIC #### [facility] [address] [address] [address] Sarmad Patino Potassium [Moles/Vol] 4.3 mmol/L Normal 3.5-5.1 [facility] Comment on above: Performed By: #### D DAVIDSON, MG, PHOS, CMP, LIPID, URIC #### [facility] [address] [place] [address] Dr. Sarmad Patino Protein [Mass/Vol] 6.8 g/dL Normal 6.4-8.2 [facility] Comment on above: Performed By: #### D DAVIDSON, MG, PHOS, CMP, LIPID, URIC #### [facility] [address] [place] [address] Dr. Sarmad Patino Sodium [Moles/Vol] 139 mmol/L Normal 136-145 [facility] Comment on above: Performed By: #### D DAVIDSON, MG, PHOS, CMP, LIPID, URIC #### [facility] [address] [place] [address] Dr. Sarmad Patino Urea nitrogen [Mass/Vol] 16.0 mg/dL Normal 7.0-18.0 [facility] Comment on above: Performed By: #### D DAVIDSON, MG, PHOS, CMP, LIPID, URIC #### [facility] [address] [place] [address] Dr. Sarmad Patino Urea nitrogen/Creatinine [Mass ratio] 21.3 mg/mg Normal [facility] Comment on above: Performed By: #### D DAVIDSON, MG, PHOS, CMP, LIPID, URIC #### [facility] [address] [place] [address] Dr. Sarmad Patino URIC ACID SERUMon 02-08-2022 Urate [Mass/Vol] 5.4 mg/dL Normal 2.6-6.0 [facility] Comment on above: Performed By: #### D DAVIDSON, MG, PHOS, CMP, LIPID, URIC #### [facility] [address] [address] [address] Sarmad Patino BK VIRUS PCR QUANTon 022 BKV DNA QUANT PCR PLASMA 27 IU/mL Normal Negative [facility] Comment on above: Result Comment: The linear range of the assay is 22 - 100,000,000 IU/mL. Performed By: #### D DAVIDSON, MG, PHOS, CMP, LIPID, URIC #### [facility] [address] [address] [address] Sarmad Patino Log10 BKV DNA Plasma 1.431 log10 IU/mL Normal [facility] Comment on above: Performed By: #### D DAVIDSON, MG, PHOS, CMP, LIPID, URIC #### [facility] [address] [place] [address] Dr. Sarmad Patino FK506 (TACROLIMUS) WHOLE BLO ODon 01-30-2022 Tacrolimus (FK506), Blood 6.5 ng/mL Normal 2.0-20.0 [facility] Comment on above: Result Comment: Trou gh (immediately following transplant) 15.0 . Trough (steady state, 2 weeks or more after transplant): 3.0 - 8.0 . Performed by LC-MS/MS technology. Performed By: #### D DAVIDSON, MG, PHOS, CMP, LIPID, URIC #### [facility] [address] [place] [address] Dr. Sarmad Patino RAPAMUNE(SIROLIMUS)on 2021 Rapamune(Sirolimus), whole blood 9.9 ng/mL Normal 3.0-20.0 [facility] Comment on above: Result Comment: Perf ormed by LC/MS-MS technology . This test was developed and its performance characteristics determined by [employer]. It has not been cleared or approved by the Food and Drug Administration. Performed By: #### D DAVIDSON, MG, PHOS, CMP, LIPID, URIC #### [facility] [address] [place] [address] Dr. Sarmad Patino BILIRUBIN CONJUGATED (DIRECT )on 01-28-2022 BILI, CONJUGATED 0.1 mg/dL Normal 0.0-0.2 [facility] Comment on above: Performed By: #### D DAVIDSON, MG, PHOS, CMP, LIPID, URIC #### [facility] [address] [place] [address] Dr. Sarmad Patino CBC AUTO DIFFon 01-28-2022 BASO # 0.0 103/ul Normal 0.0-0.1 [facility] Comment on above: Performed By: #### D DAVIDSON, MG, PHOS, CMP, LIPID, URIC #### [facility] [address] [place] [address] Dr. Sarmad Patino Basophils/100 WBC (Bld) 0.3 % Normal 0.2-2.0 [facility] Comment on above: Performed By: #### D DAVIDSON, MG, PHOS, CMP, LIPID, URIC #### [facility] [address] [place] [address] Dr. Sarmad Patino EO # 0.2 103/ul Normal 0.0-0.7 [facility] Comment on above: Performed By: #### D DAVIDSON, MG, PHOS, CMP, LIPID, URIC #### [facility] [address] [place] [address] Dr. Sarmad Patino Eosinophils/100 WBC (Bld) 3.1 % Normal 0.9-7.0 [facility] Comment on above: Performed By: #### D DAVIDSON, MG, PHOS, CMP, LIPID, URIC #### [facility] [address] [place] [address] Dr. Sarmad Patino Erythrocyte distribution width (RBC) [Ratio] 15.4 % Critically high 11.0-15.0 [facility] Comment on above: Performed By: #### D DAVIDSON, MG, PHOS, CMP, LIPID, URIC #### [facility] [address] [place] [address] Dr. Sarmad Patino Hematocrit (Bld) [Volume fraction] 42.6 % Normal 36.0-48.0 [facility] Comment on above: Performed By: #### D DAVIDSON, MG, PHOS, CMP, LIPID, URIC #### [facility] [address] [place] [address] Dr. Sarmad Patino Hemoglobin (Bld) [Mass/Vol] 14.0 g/dL Normal 12.0-16.0 [facility] Comment on above: Performed By: #### D DAVIDSON, MG, PHOS, CMP, LIPID, URIC #### [facility] [address] [place] [address] Dr. Sarmad Patino IG # 0.05 10e3/ul Critically high 0.00-0.03 [facility] Comment on above: Performed By: #### D DAVIDSON, MG, PHOS, CMP, LIPID, URIC #### [facility] [address] [address] [address] Sarmad Patino IG % 0.7 % Critically high 0.0-0.5 [facility] Comment on above: Performed By: #### D DAVIDSON, MG, PHOS, CMP, LIPID, URIC #### [facility] [address] [place] [address] Dr. Sarmad Patino LYMPH # 1.1 103/ul Critically low 1.2-3.8 [facility] Comment on above: Performed By: #### D DAVIDSON, MG, PHOS, CMP, LIPID, URIC #### [facility] [address] [address] [address] Sarmad Patino Lymphocytes/100 WBC (Bld) 15.8 % Critically low 20.5-60.0 [facility] Comment on above: Performed By: #### D DAVIDSON, MG, PHOS, CMP, LIPID, URIC #### [facility] [address] [place] [address] Dr. Sarmad Patino MANUAL DIFF REQ NO Normal [facility] Comment on above: Performed By: #### D DAVIDSON, MG, PHOS, CMP, LIPID, URIC #### [facility] [address] [place] [address] Dr. Sarmad Patino MCH (RBC) [Entitic mass] 28.3 pg Normal 26.7-34.0 [facility] Comment on above: Performed By: #### D DAVIDSON, MG, PHOS, CMP, LIPID, URIC #### [facility] [address] [place] [address] Dr. Sarmad Patino MCHC (RBC) [Mass/Vol] 32.9 g/dL Normal 29.9-35.2 [facility] Comment on above: Performed By: #### D DAVIDSON, MG, PHOS, CMP, LIPID, URIC #### [facility] [address] [place] [address] Dr. Sarmad Patino MCV (RBC) [Entitic vol] 86.2 fL Normal 81.0-99.0 [facility] Comment on above: Performed By: #### D DAVIDSON, MG, PHOS, CMP, LIPID, URIC #### [facility] [address] [place] [address] Dr. Sarmad Patino MONO # 0.8 103/ul Normal 0.3-0.8 [facility] Comment on above: Performed By: #### D DAVIDSON, MG, PHOS, CMP, LIPID, URIC #### [facility] [address] [place] [address] Dr. Sarmad Patino Monocytes/100 WBC (Bld) 11.0 % Normal 1.7-12.0 [facility] Comment on above: Performed By: #### D DAVIDSON, MG, PHOS, CMP, LIPID, URIC #### [facility] [address] [place] [address] Dr. Sarmad Patino NEUT # 4.8 103/ul Normal 1.4-6.5 [facility] Comment on above: Performed By: #### D DAVIDSON, MG, PHOS, CMP, LIPID, URIC #### [facility] [address] [place] [address] Dr. Sarmad Patino Neutrophils/100 WBC (Bld) 69.1 % Normal 43.0-75.0 [facility] Comment on above: Performed By: #### D DAVIDSON, MG, PHOS, CMP, LIPID, URIC #### [facility] [address] [place] [address] Dr. Sarmad Patino Platelet mean volume (Bld) [Entitic vol] 10.8 fL Normal 9.5-13.5 [facility] Comment on above: Performed By: #### D DAVIDSON, MG, PHOS, CMP, LIPID, URIC #### [facility] [address] [address] [address] Sarmad Patino PLT 208 103/ul Normal 150-450 [facility] Comment on above: Performed By: #### D DAVIDSON, MG, PHOS, CMP, LIPID, URIC #### [facility] [address] [address] [address] Sarmad Patino RBC 4.94 106/ul Normal 4.20-5.40 [facility] Comment on above: Performed By: #### D DAVIDSON, MG, PHOS, CMP, LIPID, URIC #### [facility] [address] [address] [address] Sarmad Patino WBC 7.0 103/ul Normal 4.0-11.0 [facility] Comment on above: Performed By: #### D DAVIDSON, MG, PHOS, CMP, LIPID, URIC #### [facility] [address] [address] [address] Saramd Patino GLYCOHEMOGLOBIN A1Con 2021 ADA RECOMMENDATION SEE BELOW Normal [facility] Comment on above: Result Comment: ADA RECOMMENDED LIMIT 4.0 - 6.0 ADA THERAPEUTIC TARGET < 7.0 ACTION SUGGESTED > 7.0 Performed By: #### D DAVIDSON, MG, PHOS, CMP, LIPID, URIC #### [facility] [address] [address] [address] Sarmad Patino Glucose [Mass/Vol] 137 mg/dL Normal [facility] Comment on above: Performed By: #### D DAVIDSON, MG, PHOS, CMP, LIPID, URIC #### [facility] [address] [address] [address] Sarmad Patino HbA1c (Bld) [Mass fraction] 6.4 % Critically high 4.5-6.2 [facility] Comment on above: Performed By: #### D DAVIDSON, MG, PHOS, CMP, LIPID, URIC #### [facility] [address] [address] [address] Sarmad Patino LIPID PROFILEon 01-28-2022 CHOL-HDL RATIO NORM SEE BELOW Normal [facility] Comment on above: Result Comment: 3.3 - 4.4 LOW RISK 4.4 - 7.1 AVERAGE RISK 7.1 - 11.0 MODERATE RISK >11.0 HIGH RISK Performed By: #### D DAVIDSON, MG, PHOS, CMP, LIPID, URIC #### [facility] [address] [place] [address] Dr. Sarmad Patino Cholesterol [Mass/Vol] 209 mg/dL Critically high <=200 [facility] Comment on above: Performed By: #### D DAVIDSON, MG, PHOS, CMP, LIPID, URIC #### [facility] [address] [place] [address] Dr. Sarmad Patino Cholesterol in HDL [Mass/Vol] 59 mg/dL Normal 40-60 [facility] Comment on above: Performed By: #### D DAVIDSON, MG, PHOS, CMP, LIPID, URIC #### [facility] [address] [place] [address] Dr. Sarmad Patino Cholesterol in LDL [Mass/Vol] 100.4 mg/dL Normal [facility] Comment on above: Performed By: #### D DAVIDSON, MG, PHOS, CMP, LIPID, URIC #### [facility] [address] [place] [address] Dr. Sarmad Patino Cholesterol.total/Cho lesterol in HDL [Mass ratio] 3.5 {ratio} Normal [facility] Comment on above: Performed By: #### D DAVIDSON, MG, PHOS, CMP, LIPID, URIC #### [facility] [address] [place] [address] Dr. Sarmad Patino HDL NORMAL > or = 60 mg/dl - LO W CARDIOVASCULAR RISK <40 mg/dl - HIGH CARDIOVASCULAR RISK Normal [facility] Comment on above: Performed By: #### D DAVIDSON, MG, PHOS, CMP, LIPID, URIC #### [facility] [address] [place] [address] Dr. Sarmad Patino LDL CALC NORMAL SEE BELOW Normal [facility] Comment on above: Result Comment: <100 mg/dl OPTIMAL 100 - 129 mg/dl NEAR OR ABOVE OPTIMAL 130 - 159 mg/dl BORDERLINE HIGH 160 - 189 mg/dl HIGH >190 mg/dl VERY HIGH Performed By: #### D DAVIDSON, MG, PHOS, CMP, LIPID, URIC #### [facility] [address] [address] [address] Sarmad Patino Triglyceride [Mass/Vol] 248 mg/dL Critically high <=150 [facility] Comment on above: Performed By: #### D DAVIDSON, MG, PHOS, CMP, LIPID, URIC #### [facility] [address] [address] [address] Sarmad Patino VLDL CALC 49.6 mg/dL Normal [facility] Comment on above: Performed By: #### D DAVIDSON, MG, PHOS, CMP, LIPID, URIC #### [facility] [address] [address] [address] Sarmad Patino MAGNESIUMon 01-28-2022 Magnesium [Mass/Vol] 1.6 mg/dL Critically low 1.8-2.4 [facility] Comment on above: Performed By: #### D DAVIDSON, MG, PHOS, CMP, LIPID, URIC #### [facility] [address] [place] [address] Dr. Sarmad Patino PHOSPHORUSon 01-28-2022 Phosphate [Mass/Vol] 2.7 mg/dL Normal 2.6-4.7 [facility] Comment on above: Performed By: #### D DAVIDSON, MG, PHOS, CMP, LIPID, URIC #### [facility] [address] [place] [address] Dr. Sarmad Patino PROF 14(COMP METB)on 022 Albumin [Mass/Vol] 3.3 g/dL Critically low 3.4-5.0 [facility] Comment on above: Performed By: #### D DAVIDSON, MG, PHOS, CMP, LIPID, URIC #### [facility] [address] [address] [address] Sarmad Patino Albumin/Globulin [Mass ratio] 0.9 {ratio} Normal [facility] Comment on above: Performed By: #### D DAVIDSON, MG, PHOS, CMP, LIPID, URIC #### [facility] [address] [place] [address] Dr. Sarmad Patino ALP [Catalytic activity/Vol] 124 U/L Critically high 46-116 [facility] Comment on above: Performed By: #### D DAVIDSON, MG, PHOS, CMP, LIPID, URIC #### [facility] [address] [address] [address] Sarmad Patino ALT [Catalytic activity/Vol] 28 U/L Normal 14-59 [facility] Comment on above: Performed By: #### D DAVIDSON, MG, PHOS, CMP, LIPID, URIC #### [facility] [address] [address] [address] Sarmad Patino Anion gap [Moles/Vol] 12.0 mmol/L Normal [facility] Comment on above: Performed By: #### D DAVIDSON, MG, PHOS, CMP, LIPID, URIC #### [facility] [address] [place] [address] Dr. Sarmad Patino AST [Catalytic activity/Vol] 20 U/L Normal 15-37 [facility] Comment on above: Performed By: #### D DAVIDSON, MG, PHOS, CMP, LIPID, URIC #### [facility] [address] [place] [address] Dr. Sarmad Patino Bilirubin [Mass/Vol] 0.5 mg/dL Normal 0.2-1.0 [facility] Comment on above: Performed By: #### D DAVIDSON, MG, PHOS, CMP, LIPID, URIC #### [facility] [address] [place] [address] Dr. Sarmad Patino Calcium [Mass/Vol] 9.1 mg/dL Normal 8.5-10.1 [facility] Comment on above: Performed By: #### D DAVIDSON, MG, PHOS, CMP, LIPID, URIC #### [facility] [address] [address] [address] Sarmad Patino Chloride [Moles/Vol] 104 mmol/L Normal 98-107 [facility] Comment on above: Performed By: #### D DAVIDSON, MG, PHOS, CMP, LIPID, URIC #### [facility] [address] [address] [address] Sarmad Patino CO2 [Moles/Vol] 25.7 mmol/L Normal 21.0-32.0 [facility] Comment on above: Performed By: #### D DAVIDSON, MG, PHOS, CMP, LIPID, URIC #### [facility] [address] [place] [address] Dr. Sarmad Patino Creatinine [Mass/Vol] 0.77 mg/dL Normal 0.55-1.02 [facility] Comment on above: Performed By: #### D DAVIDSON, MG, PHOS, CMP, LIPID, URIC #### [facility] [address] [place] [address] Dr. Sarmad Patino EGFR-AF FINNISH >60 Normal >=60 [facility] Comment on above: Performed By: #### D DAVIDSON, MG, PHOS, CMP, LIPID, URIC #### [facility] [address] [place] [address] Dr. Sarmad Patino EGFR-NON AF FINNISH >60 Normal >=60 [facility] Comment on above: Performed By: #### D DAVIDSON, MG, PHOS, CMP, LIPID, URIC #### [facility] [address] [place] [address] Dr. Sarmad Patino Globulin (S) [Mass/Vol] 3.7 g/dL Normal [facility] Comment on above: Performed By: #### D DAVIDSON, MG, PHOS, CMP, LIPID, URIC #### [facility] [address] [place] [address] Dr. Sarmad Patino Glucose [Mass/Vol] 108 mg/dL Critically high 74-106 [facility] Comment on above: Performed By: #### D DAVIDSON, MG, PHOS, CMP, LIPID, URIC #### [facility] [address] [place] [address] Dr. Sarmad Patino Potassium [Moles/Vol] 3.7 mmol/L Normal 3.5-5.1 [facility] Comment on above: Performed By: #### D DAVIDSON, MG, PHOS, CMP, LIPID, URIC #### [facility] [address] [place] [address] Dr. Sarmad Patino Protein [Mass/Vol] 7.0 g/dL Normal 6.4-8.2 [facility] Comment on above: Performed By: #### D DAVIDSON, MG, PHOS, CMP, LIPID, URIC #### [facility] [address] [address] [address] Sarmad Patino Sodium [Moles/Vol] 138 mmol/L Normal 136-145 [facility] Comment on above: Performed By: #### D DAVIDSON, MG, PHOS, CMP, LIPID, URIC #### [facility] [address] [address] [address] Sarmad Patino Urea nitrogen [Mass/Vol] 15.0 mg/dL Normal 7.0-18.0 [facility] Comment on above: Performed By: #### D DAVIDSON, MG, PHOS, CMP, LIPID, URIC #### [facility] [address] [address] [address] Sarmad Patino Urea nitrogen/Creatinine [Mass ratio] 19.5 mg/mg Normal [facility] Comment on above: Performed By: #### D DAVIDSON, MG, PHOS, CMP, LIPID, URIC #### [facility] [address] [address] [address] Sarmad Patino URIC ACID SERUMon 01-28-2022 Urate [Mass/Vol] 4.3 mg/dL Normal 2.6-6.0 [facility] Comment on above: Performed By: #### D DAVIDSON, MG, PHOS, CMP, LIPID, URIC #### [facility] [address] [address] [address] Sarmad Patino Quick Strepon 01-12-2022 S. pyogenes Org specific cx Ql (Throat) Negative [employer] Other Quick Strep [employer] [facility] [employer] Other XR CHEST 1 Von 01-07-2022 [...] ARTEMIO BERNARD Date: 2022-01-07 15:00 Normal [facility] CBC W MANUAL DIFFon 01-04-20 22 ATYPICAL LYMPH # 1.40 103/ul Normal [facility] Comment on above: Performed By: #### D DAVIDSON, MG, PHOS, CMP, LIPID, URIC #### [facility] [address] [place] [address] Dr. Sarmad Patino ATYPICAL LYMPH % 10 % Normal [facility] Comment on above: Performed By: #### D DAVIDSON, MG, PHOS, CMP, LIPID, URIC #### [facility] [address] [place] [address] Dr. Sarmad Patino BAND # 0.6 103/ul Critically high 0.0-0.3 [facility] Comment on above: Performed By: #### D DAVIDSON, MG, PHOS, CMP, LIPID, URIC #### [facility] [address] [address] [address] Sarmad Patino BAND % 4 % Normal 0-5 [facility] Comment on above: Performed By: #### D DAVIDSON, MG, PHOS, CMP, LIPID, URIC #### [facility] [address] [address] [address] Sarmad Patino BASOM # 0.00 103/ul Normal 0.00-0.10 [facility] Comment on above: Performed By: #### D DAVIDSON, MG, PHOS, CMP, LIPID, URIC #### [facility] [address] [address] [address] Sarmad Patino BASOM % 0.0 % Critically low 0.2-2.0 [facility] Comment on above: Performed By: #### D DAVIDSON, MG, PHOS, CMP, LIPID, URIC #### [facility] [address] [address] [address] Sarmad Patino BLAST # Normal [facility] Comment on above: Performed By: #### D DAVIDSON, MG, PHOS, CMP, LIPID, URIC #### [facility] [address] [place] [address] Dr. Sarmad Patino BLAST % Normal [facility] Comment on above: Performed By: #### D DAVIDSON, MG, PHOS, CMP, LIPID, URIC #### [facility] [address] [address] [address] Sarmad Patino CORRECTED WBC Normal 4.0-11.0 [facility] [place] Comment on above: Performed By: #### D DAVIDSON, MG, PHOS, CMP, LIPID, URIC #### [facility] [address] [place] [address] Dr. Sarmad Patino EOS # 0.14 103/ul Normal 0.00-0.70 [facility] Comment on above: Performed By: #### D DAVIDSON, MG, PHOS, CMP, LIPID, URIC #### [facility] [address] [place] [address] Dr. Sarmad Patino EOS% 1.0 % Normal 0.9-7.0 [facility] Comment on above: Performed By: #### D DAVIDSON, MG, PHOS, CMP, LIPID, URIC #### [facility] [address] [place] [address] Dr. Sarmad Patino HCT 42.8 % Normal 36.0-48.0 [facility] Comment on above: Performed By: #### D DAVIDSON, MG, PHOS, CMP, LIPID, URIC #### [facility] [address] [place] [address] Dr. Sarmad Patino HGB 14.2 g/dl Normal 12.0-16.0 [facility] Comment on above: Performed By: #### D DAVIDSON, MG, PHOS, CMP, LIPID, URIC #### [facility] [address] [place] [address] Dr. Sarmad Patino LYMPHM # 0.00 103/ul Critically low 1.20-3.80 [facility] Comment on above: Performed By: #### D DAVIDSON, MG, PHOS, CMP, LIPID, URIC #### [facility] [address] [address] [address] Sarmad Patino LYMPHM% 0.0 % Critically low 20.5-60.0 [facility] Comment on above: Performed By: #### D DAVIDSON, MG, PHOS, CMP, LIPID, URIC #### [facility] [address] [address] [address] Sarmad Patino MCH 28.8 pg Normal 26.7-34.0 [facility] Comment on above: Performed By: #### D DAVIDSON, MG, PHOS, CMP, LIPID, URIC #### [facility] [address] [place] [address] Dr. Sarmad Patino MCHC 33.2 g/dl Normal 29.9-35.2 [facility] Comment on above: Performed By: #### D DAVIDSON, MG, PHOS, CMP, LIPID, URIC #### [facility] [address] [address] [address] Sarmad Patino MCV 86.8 fL Normal 81.0-99.0 [facility] Comment on above: Performed By: #### D DAVIDSON, MG, PHOS, CMP, LIPID, URIC #### [facility] [address] [place] [address] Dr. Sarmad Patino METAMYELOCYTE # Normal [facility] Comment on above: Performed By: #### D DAVIDSON, MG, PHOS, CMP, LIPID, URIC #### [facility] [address] [address] [address] Sarmad Patino METAMYELOCYTE % Normal [facility] Comment on above: Performed By: #### D DAVIDSON, MG, PHOS, CMP, LIPID, URIC #### [facility] [address] [address] [address] Sarmad Patino MONOM# 0.84 103/ul Critically high 0.30-0.80 [facility] Comment on above: Performed By: #### D DAVIDSON, MG, PHOS, CMP, LIPID, URIC #### [facility] [address] [address] [address] Sarmad Patino MONOM% 6.0 % Normal 1.7-12.0 [facility] Comment on above: Performed By: #### D DAVIDSON, MG, PHOS, CMP, LIPID, URIC #### [facility] [address] [address] [address] Sarmad Patino MPV 11.5 fL Normal 9.5-13.5 [facility] Comment on above: Performed By: #### D DAVIDSON, MG, PHOS, CMP, LIPID, URIC #### [facility] [address] [address] [address] Sarmad Patino MYELOCYTE # 0.3 103/ul Normal [facility] Comment on above: Performed By: #### D DAVIDSON, MG, PHOS, CMP, LIPID, URIC #### [facility] [address] [place] [address] Dr. Sarmad Patino MYELOCYTE % 2 % Normal [facility] Comment on above: Performed By: #### D DAVIDSON, MG, PHOS, CMP, LIPID, URIC #### [facility] [address] [address] [address] Sarmad Patino NRBC Normal [facility] Comment on above: Performed By: #### D DAVIDSON, MG, PHOS, CMP, LIPID, URIC #### [facility] [address] [address] [address] Sarmad Patino PLT 180 103/ul Normal 150-450 [facility] Comment on above: Performed By: #### D DAVIDSON, MG, PHOS, CMP, LIPID, URIC #### [facility] [address] [address] [address] Sarmad Patino RBC 4.93 106/ul Normal 4.20-5.40 [facility] Comment on above: Performed By: #### D DAVIDSON, MG, PHOS, CMP, LIPID, URIC #### [facility] [address] [address] [address] Sarmad Patino RDW 13.9 % Normal 11.0-15.0 [facility] Comment on above: Performed By: #### D DAVIDSON, MG, PHOS, CMP, LIPID, URIC #### [facility] [address] [address] [address] Sarmad Patino SEG # 10.78 103/ul Critically high 1.40-6.50 [facility] Comment on above: Performed By: #### D DAVIDSON, MG, PHOS, CMP, LIPID, URIC #### [facility] [address] [address] [address] Sarmad Patino SEG % 77.0 % Critically high 43.0-75.0 [facility] Comment on above: Performed By: #### D DAVIDSON, MG, PHOS, CMP, LIPID, URIC #### [facility] [address] [address] [address] Sarmad Patino WBC 14.0 103/ul Critically high 4.0-11.0 [facility] Comment on above: Performed By: #### D DAVIDSON, MG, PHOS, CMP, LIPID, URIC #### [facility] [id number] Sarmad Patino CT NECK ST W [...] middle ear cavities clear. Skull base intact. Water Filter Cleaner spaces normal. Parotid glands normal. Submandibular glands [...] F HOPPER Date: 2022-01-03 10:40 Normal [facility]on SARS-CoV-2 (COVID-19) RNA MURALI+probe Ql (Unsp spec) Detected Critically abnormal NOT DETECTED [facility] Comment on above: Result Comment: This test is not yet approved or cleared by the [place] FDA. When there are no FDA-approved or cleared tests available, and other criteria are met, FDA can make tests available under an emergency access mechanism called an Emergency Use Authorization (EUA). The EUA for this test is supported by the [employer] Specialist of Health and Human Service's declaration that [...] DAVIDSON, MG, PHOS, CMP, LIPID, URIC #### [facility] [address] [address] [address] Sarmad Patino GROUP A STREP CULTUREon S. pyogenes Ag Ql (Unsp spec) Culture Observations: Negative for Group A Streptococcus Normal [facility] Comment on above: Performed By: #### U JUVE, LIPID, MG, CMP, DBIL, PHOS #### [facility] [address] [address] [address] Sarmad Patino INFLUENZA A AND B AGon 01-03 INFLUENZA A AG Negative Normal NEGATIVE SEE COMMENT [facility] Comment on above: Performed By: #### D DAVIDSON, MG, PHOS, CMP, LIPID, URIC #### [facility] [address] [place] [address] Dr. Sarmad Patino INFLUENZA B AG Negative Normal NEGATIVE SEE COMMENT [facility] Comment on above: Performed By: #### D DAVIDSON, MG, PHOS, CMP, LIPID, URIC #### [facility] [address] [place] [address] Dr. Sarmad Patino INTERNAL CONTROLS Within Normal Limits Normal Wi thin Normal Limits [facility] Comment on above: Performed By: #### D DAVIDSON, MG, PHOS, CMP, LIPID, URIC #### [facility] [address] [place] [address] Dr. Sarmad Patino PROF 14(COMP METB)on 022 Albumin [Mass/Vol] 2.5 g/dL Critically low 3.4-5.0 [facility] Comment on above: Performed By: #### U JUVE, LIPID, MG, CMP, DBIL, PHOS #### [facility] [address] [place] [address] Dr. Sarmad Patino Albumin/Globulin [Mass ratio] 0.5 {ratio} Normal [facility] Comment on above: Performed By: #### U JUVE, LIPID, MG, CMP, DBIL, PHOS #### [facility] [address] [place] [address] Dr. Sarmad Patino ALP [Catalytic activity/Vol] 185 U/L Critically high 46-116 [facility] Comment on above: Performed By: #### U JUVE, LIPID, MG, CMP, DBIL, PHOS #### [facility] [address] [address] [address] Sarmad Patino ALT [Catalytic activity/Vol] 108 U/L Critically high 14-59 [facility] Comment on above: Performed By: #### U JUVE, LIPID, MG, CMP, DBIL, PHOS #### [facility] [address] [place] [address] Dr. Sarmad Patino Anion gap [Moles/Vol] 8.3 mmol/L Normal [facility] Comment on above: Performed By: #### U JUVE, LIPID, MG, CMP, DBIL, PHOS #### [facility] [address] [address] [address] Sarmad Patino AST [Catalytic activity/Vol] 59 U/L Critically high 15-37 [facility] Comment on above: Performed By: #### U JUVE, LIPID, MG, CMP, DBIL, PHOS #### [facility] [address] [place] [address] Dr. Sarmad Patino Bilirubin [Mass/Vol] 0.6 mg/dL Normal 0.2-1.0 [facility] Comment on above: Performed By: #### U JUVE, LIPID, MG, CMP, DBIL, PHOS #### [facility] [address] [place] [address] Dr. Sarmad Patino Calcium [Mass/Vol] 9.0 mg/dL Normal 8.5-10.1 [facility] Comment on above: Performed By: #### U JUVE, LIPID, MG, CMP, DBIL, PHOS #### [facility] [address] [place] [address] Dr. Sarmad Patino Chloride [Moles/Vol] 100 mmol/L Normal 98-107 [facility] Comment on above: Performed By: #### U JUVE, LIPID, MG, CMP, DBIL, PHOS #### [facility] [address] [place] [address] Dr. Sarmad Patino CO2 [Moles/Vol] 29.0 mmol/L Normal 21.0-32.0 [facility] Comment on above: Performed By: #### U JUVE, LIPID, MG, CMP, DBIL, PHOS #### [facility] [address] [place] [address] Dr. Sarmad Patino Creatinine [Mass/Vol] 1.05 mg/dL Critically high 0.55-1.02 [facility] Comment on above: Performed By: #### U JUVE, LIPID, MG, CMP, DBIL, PHOS #### [facility] [address] [place] [address] Dr. Sarmad Patino EGFR-AF FINNISH >60 Normal >=60 [facility] Comment on above: Performed By: #### U JUVE, LIPID, MG, CMP, DBIL, PHOS #### [facility] [address] [place] [address] Dr. Sarmad Patino EGFR-NON AF FINNISH 53 mL/min/1.73m2 Critically low >=60 [facility] Comment on above: Performed By: #### U JUVE, LIPID, MG, CMP, DBIL, PHOS #### [facility] [address] [address] [address] Sarmad Patino Globulin (S) [Mass/Vol] 4.6 g/dL Normal [facility] Comment on above: Performed By: #### U JUVE, LIPID, MG, CMP, DBIL, PHOS #### [facility] [address] [address] [address] Sarmad Patino Glucose [Mass/Vol] 154 mg/dL Critically high 74-106 [facility] Comment on above: Performed By: #### U JUVE, LIPID, MG, CMP, DBIL, PHOS #### [facility] [address] [place] [address] Dr. Sarmad Patino Potassium [Moles/Vol] 3.3 mmol/L Critically low 3.5-5.1 [facility] Comment on above: Performed By: #### U JUVE, LIPID, MG, CMP, DBIL, PHOS #### [facility] [address] [place] [address] Dr. Sarmad Patino Protein [Mass/Vol] 7.1 g/dL Normal 6.4-8.2 [facility] Comment on above: Performed By: #### U JUVE, LIPID, MG, CMP, DBIL, PHOS #### [facility] [address] [place] [address] Dr. Sarmad Patino Sodium [Moles/Vol] 134 mmol/L Critically low 136-145 [facility] Comment on above: Performed By: #### U JUVE, LIPID, MG, CMP, DBIL, PHOS #### [facility] [address] [place] [address] Dr. Sarmad Patino Urea nitrogen [Mass/Vol] 24.0 mg/dL Critically high 7.0-18.0 [facility] Comment on above: Performed By: #### U JUVE, LIPID, MG, CMP, DBIL, PHOS #### [facility] [address] [place], [place] [address] Dr. Sarmad Patino Urea nitrogen/Creatinine [Mass ratio] 22.9 mg/mg Normal [facility] Comment on above: Performed By: #### U JUVE, LIPID, MG, CMP, DBIL, PHOS #### [facility] [address] [place], [place] [address] Dr. Sarmad Patino STREPT SCREENon 01-03-2022 STREP SCREEN A Negative Normal NEGATIVE [facility] Comment on above: Performed By: #### U JUVE, LIPID, MG, CMP, DBIL, PHOS #### [facility] [id number] Sarmad Patino XR CHEST 2 Von [...] MAYRA WHITESIDE Date: 2022-01-03 03:54 Normal [facility] Quick Strepon 12-28-2021 S. pyogenes Org specific cx Ql (Throat) Negative [employer] Other Quick Strep [employer] Other SARS-CoV-2 (COVID-19) RNA NA A+probe Ql (Resp)on 12-25-2021 SARS-CoV-2 (COVID-19) RNA MURALI+probe Ql (Unsp spec) Negative [employer] Other FK506 (TACROLIMUS) WHOLE BLO ODon 12-08-2021 Tacrolimus (FK506), Blood 6.6 ng/mL Normal 2.0-20.0 [facility] Comment on above: Result Comment: Trou gh (immediately following transplant) 15.0 . Trough (steady state, 2 weeks or more after transplant): 3.0 - 8.0 . Performed by LC-MS/MS technology. Performed By: #### D DAVIDSON, MG, PHOS, CMP, LIPID, URIC #### [facility] [address] [place] [address] Dr. Sarmad Patino RAPAMUNE(SIROLIMUS)on 2021 Rapamune(Sirolimus), whole blood 9.6 ng/mL Normal 3.0-20.0 [facility] Comment on above: Result Comment: Perf ormed by LC/MS-MS technology . This test was developed and its performance characteristics determined by [facility]. It has not been cleared or approved by the Food and Drug Administration. Performed By: #### D DAVIDSON, MG, PHOS, CMP, LIPID, URIC #### [facility] [address] [place] [address] Dr. Sarmad Patino BILIRUBIN CONJUGATED (DIRECT )on 12-05-2021 BILI, CONJUGATED 0.1 mg/dL Normal 0.0-0.2 [facility] Comment on above: Performed By: #### D DAVIDSON, MG, PHOS, CMP, LIPID, URIC #### [facility] [address] [place] [address] Dr. Sarmad Patino CBC W MANUAL DIFFon 12-06-19 22 ATYPICAL LYMPH # Normal [facility] Comment on above: Performed By: #### D DAVIDSON, MG, PHOS, CMP, LIPID, URIC #### [facility] [address] [place] [address] Dr. Sarmad Patino ATYPICAL LYMPH % Normal [facility] Comment on above: Performed By: #### D DAVIDSON, MG, PHOS, CMP, LIPID, URIC #### [facility] [address] [place] [address] Dr. Sarmad Patino BAND # Normal 0.0-0.3 [facility] Comment on above: Performed By: #### D DAVIDSON, MG, PHOS, CMP, LIPID, URIC #### [facility] [address] [address] [address] Sarmad Patino BAND % Normal 0-5 [facility] Comment on above: Performed By: #### D DAVIDSON, MG, PHOS, CMP, LIPID, URIC #### [facility] [address] [address] [address] Sarmad Patino BASOM # 0.00 103/ul Normal 0.00-0.10 [facility] Comment on above: Performed By: #### D DAVIDSON, MG, PHOS, CMP, LIPID, URIC #### [facility] [address] [address] [address] Sarmad Patino BASOM % 0.0 % Critically low 0.2-2.0 [facility] Comment on above: Performed By: #### D DAVIDSON, MG, PHOS, CMP, LIPID, URIC #### [facility] [address] [address] [address] Sarmad Patino BLAST # Normal [facility] Comment on above: Performed By: #### D DAVIDSON, MG, PHOS, CMP, LIPID, URIC #### [facility] [address] [address] [address] Sarmad Patino BLAST % Normal [facility] Comment on above: Performed By: #### D DAVIDSON, MG, PHOS, CMP, LIPID, URIC #### [facility] [address] [address] [address] Sarmad Patino CORRECTED WBC Normal 4.0-11.0 [facility] Comment on above: Performed By: #### D DAVIDSON, MG, PHOS, CMP, LIPID, URIC #### [facility] [address] [address] [address] Sarmad Patino EOS # 0.15 103/ul Normal 0.00-0.70 [facility] Comment on above: Performed By: #### D DAVIDSON, MG, PHOS, CMP, LIPID, URIC #### [facility] [address] [address] [address] Sarmad Patino EOS% 2.0 % Normal 0.9-7.0 [facility] Comment on above: Performed By: #### D DAVIDSON, MG, PHOS, CMP, LIPID, URIC #### [facility] [address] [address] [address] Sarmad Patino HCT 47.5 % Normal 36.0-48.0 [facility] Comment on above: Performed By: #### D DAVIDSON, MG, PHOS, CMP, LIPID, URIC #### [facility] [address] [address] [address] Sarmad Patino HGB 15.6 g/dl Normal 12.0-16.0 [facility] Comment on above: Performed By: #### D DAVIDSON, MG, PHOS, CMP, LIPID, URIC #### [facility] [address] [place] [address] Dr. Sarmad Patino LYMPHM # 1.46 103/ul Normal 1.20-3.80 [facility] Comment on above: Performed By: #### D DAVIDSON, MG, PHOS, CMP, LIPID, URIC #### [facility] [address] [place] [address] Dr. Sarmad Patino LYMPHM% 19.0 % Critically low 20.5-60.0 [facility] Comment on above: Performed By: #### D DAVIDSON, MG, PHOS, CMP, LIPID, URIC #### [facility] [address] [place] [address] Dr. Sarmad Patino MCH 28.9 pg Normal 26.7-34.0 [facility] Comment on above: Performed By: #### D DAVIDSON, MG, PHOS, CMP, LIPID, URIC #### [facility] [address] [place] [address] Dr. Sarmad Patino MCHC 32.8 g/dl Normal 29.9-35.2 [facility] Comment on above: Performed By: #### D DAVIDSON, MG, PHOS, CMP, LIPID, URIC #### [facility] [address] [place] [address] Dr. Sarmad Patino MCV 88.1 fL Normal 81.0-99.0 [facility] Comment on above: Performed By: #### D DAVIDSON, MG, PHOS, CMP, LIPID, URIC #### [facility] [address] [address] [address] Sarmad Patino METAMYELOCYTE # Normal [facility] Comment on above: Performed By: #### D DAVIDSON, MG, PHOS, CMP, LIPID, URIC #### [facility] [address] [address] [address] Sarmad Patino METAMYELOCYTE % Normal [facility] Comment on above: Performed By: #### D DAVIDSON, MG, PHOS, CMP, LIPID, URIC #### [facility] [address] [address] [address] Sarmad Patino MONOM# 0.85 103/ul Critically high 0.30-0.80 [facility] Comment on above: Performed By: #### D DAVIDSON, MG, PHOS, CMP, LIPID, URIC #### [facility] [address] [address] [address] Sarmad Patino MONOM% 11.0 % Normal 1.7-12.0 [facility] Comment on above: Performed By: #### D DAVIDSON, MG, PHOS, CMP, LIPID, URIC #### [facility] [address] [address] [address] Sarmad Patino MPV 11.3 fL Normal 9.5-13.5 [facility] Comment on above: Performed By: #### D DAVIDSON, MG, PHOS, CMP, LIPID, URIC #### [facility] [address] [address] [address] Sarmad Patino MYELOCYTE # Normal [facility] Comment on above: Performed By: #### D DAVIDSON, MG, PHOS, CMP, LIPID, URIC #### [facility] [address] [address] [address] Sarmad Patino MYELOCYTE % Normal [facility] Comment on above: Performed By: #### D DAVIDSON, MG, PHOS, CMP, LIPID, URIC #### [facility] [address] [address] [address] Sarmad Patino NRBC Normal [facility] Comment on above: Performed By: #### D DAVIDSON, MG, PHOS, CMP, LIPID, URIC #### [facility] [address] [address] [address] Sarmad Patino PLT 214 103/ul Normal 150-450 [facility] Comment on above: Performed By: #### D DAVIDSON, MG, PHOS, CMP, LIPID, URIC #### [facility] [address] [address] [address] Sarmad Patino RBC 5.39 106/ul Normal 4.20-5.40 [facility] Comment on above: Performed By: #### D DAVIDSON, MG, PHOS, CMP, LIPID, URIC #### [facility] [address] [place] [address] Dr. Sarmad Patino RDW 13.8 % Normal 11.0-15.0 [facility] Comment on above: Performed By: #### D DAVIDSON, MG, PHOS, CMP, LIPID, URIC #### [facility] [address] [place] [address] Dr. Sarmad Patino SEG # 5.24 103/ul Normal 1.40-6.50 [facility] Comment on above: Performed By: #### D DAVIDSON, MG, PHOS, CMP, LIPID, URIC #### [facility] [address] [place] [address] Dr. Sarmad Patino SEG % 68.0 % Normal 43.0-75.0 [facility] Comment on above: Performed By: #### D DAVIDSON, MG, PHOS, CMP, LIPID, URIC #### [facility] [address] [place] [address] Dr. Sarmad Patino WBC 7.7 103/ul Normal 4.0-11.0 [facility] Comment on above: Performed By: #### D DAVIDSON, MG, PHOS, CMP, LIPID, URIC #### [facility] [address] [place] [address] Dr. Sarmad Patino LIPID PROFILEon 12-05-2021 CHOL-HDL RATIO NORM SEE BELOW Normal [facility] Comment on above: Result Comment: 3.3 - 4.4 LOW RISK 4.4 - 7.1 AVERAGE RISK 7.1 - 11.0 MODERATE RISK >11.0 HIGH RISK Performed By: #### D DAVIDSON, MG, PHOS, CMP, LIPID, URIC #### [facility] [address] [address] [address] Sarmad Patino Cholesterol [Mass/Vol] 170 mg/dL Normal <=200 [facility] Comment on above: Performed By: #### D DAVIDSON, MG, PHOS, CMP, LIPID, URIC #### [facility] [address] [address] [address] Sarmad Patino Cholesterol in HDL [Mass/Vol] 54 mg/dL Normal 40-60 [facility] Comment on above: Performed By: #### D DAVIDSON, MG, PHOS, CMP, LIPID, URIC #### [facility] [address] [address] [address] Sarmad Patino Cholesterol in LDL [Mass/Vol] 92.2 mg/dL Normal [facility] Comment on above: Performed By: #### D DAVIDSON, MG, PHOS, CMP, LIPID, URIC #### [facility] [address] [address] [address] Sarmad Patino Cholesterol.total/Cho lesterol in HDL [Mass ratio] 3.1 {ratio} Normal [facility] Comment on above: Performed By: #### D DAVIDSON, MG, PHOS, CMP, LIPID, URIC #### [facility] [address] [address] [address] Sarmad Patino HDL NORMAL > or = 60 mg/dl - LO W CARDIOVASCULAR RISK <40 mg/dl - HIGH CARDIOVASCULAR RISK Normal [facility] Comment on above: Performed By: #### D DAVIDSON, MG, PHOS, CMP, LIPID, URIC #### [facility] [address] [address] [address] Sarmad Patino LDL CALC NORMAL SEE BELOW Normal [facility] Comment on above: Result Comment: <100 mg/dl OPTIMAL 100 - 129 mg/dl NEAR OR ABOVE OPTIMAL 130 - 159 mg/dl BORDERLINE HIGH 160 - 189 mg/dl HIGH >190 mg/dl VERY HIGH Performed By: #### D DAVIDSON, MG, PHOS, CMP, LIPID, URIC #### [facility] [address] [address] [address] Sarmad Patino Triglyceride [Mass/Vol] 119 mg/dL Normal <=150 [facility] Comment on above: Performed By: #### D ADVIDSON, MG, PHOS, CMP, LIPID, URIC #### [facility] [address] [place] [address] Dr. Sarmad Patino VLDL CALC 23.8 mg/dL Normal [facility] Comment on above: Performed By: #### D DAVIDSON, MG, PHOS, CMP, LIPID, URIC #### [facility] [address] [place] [address] Dr. Sarmad Patino MAGNESIUMon 12-05-2021 Magnesium [Mass/Vol] 1.8 mg/dL Normal 1.8-2.4 [facility] Comment on above: Performed By: #### D DAVIDSON, MG, PHOS, CMP, LIPID, URIC #### [facility] [address] [place] [address] Dr. Sarmad Patino PHOSPHORUSon 12-05-2021 Phosphate [Mass/Vol] 3.8 mg/dL Normal 2.6-4.7 [facility] Comment on above: Performed By: #### D DAVIDSON, MG, PHOS, CMP, LIPID, URIC #### [facility] [address] [place] [address] Dr. Sarmad Patino PROF 14(COMP METB)on 022 Albumin [Mass/Vol] 3.7 g/dL Normal 3.4-5.0 [facility] Comment on above: Performed By: #### D DAVIDSON, MG, PHOS, CMP, LIPID, URIC #### [facility] [address] [place] [address] Dr. Sarmad Patino Albumin/Globulin [Mass ratio] 1.0 {ratio} Normal [facility] Comment on above: Performed By: #### D DAVIDSON, MG, PHOS, CMP, LIPID, URIC #### [facility] [address] [place] [address] Dr. Sarmad Patino ALP [Catalytic activity/Vol] 151 U/L Critically high 46-116 [facility] Comment on above: Performed By: #### D DAVIDSON, MG, PHOS, CMP, LIPID, URIC #### [facility] [address] [address] [address] Sarmad Patino ALT [Catalytic activity/Vol] 27 U/L Normal 14-59 [facility] Comment on above: Performed By: #### D DAVIDSON, MG, PHOS, CMP, LIPID, URIC #### [facility] [address] [address] [address] Sarmad Patino Anion gap [Moles/Vol] 14.5 mmol/L Normal [facility] Comment on above: Performed By: #### D DAVIDSON, MG, PHOS, CMP, LIPID, URIC #### [facility] [address] [place] [address] Dr. Sarmad Patino AST [Catalytic activity/Vol] 25 U/L Normal 15-37 [facility] Comment on above: Performed By: #### D DAVIDSON, MG, PHOS, CMP, LIPID, URIC #### [facility] [address] [place] [address] Dr. Sarmad Patino Bilirubin [Mass/Vol] 0.4 mg/dL Normal 0.2-1.0 [facility] Comment on above: Performed By: #### D DAVIDSON, MG, PHOS, CMP, LIPID, URIC #### [facility] [address] [place] [address] Dr. Sarmad Patino Calcium [Mass/Vol] 9.4 mg/dL Normal 8.5-10.1 [facility] Comment on above: Performed By: #### D DAVIDSON, MG, PHOS, CMP, LIPID, URIC #### [facility] [address] [place] [address] Dr. Sarmad Patino Chloride [Moles/Vol] 103 mmol/L Normal 98-107 [facility] Comment on above: Performed By: #### D DAVIDSON, MG, PHOS, CMP, LIPID, URIC #### [facility] [address] [place] [address] Dr. Sarmad Patino CO2 [Moles/Vol] 26.5 mmol/L Normal 21.0-32.0 [facility] Comment on above: Performed By: #### D DAVIDSON, MG, PHOS, CMP, LIPID, URIC #### [facility] [address] [address] [address] Sarmad Patino Creatinine [Mass/Vol] 0.87 mg/dL Normal 0.55-1.02 [facility] Comment on above: Performed By: #### D DAVIDSON, MG, PHOS, CMP, LIPID, URIC #### [facility] [address] [address] [address] Sarmad Patino EGFR-AF FINNISH >60 Normal >=60 [facility] Comment on above: Performed By: #### D DAVIDSON, MG, PHOS, CMP, LIPID, URIC #### [facility] [address] [address] [address] Sarmad Patino EGFR-NON AF FINNISH >60 Normal >=60 [facility] Comment on above: Performed By: #### D DAVIDSON, MG, PHOS, CMP, LIPID, URIC #### [facility] [address] [place] [address] Dr. Sarmad Patino Globulin (S) [Mass/Vol] 3.8 g/dL Normal [facility] Comment on above: Performed By: #### D DAVIDSON, MG, PHOS, CMP, LIPID, URIC #### [facility] [address] [place] [address] Dr. Sarmad Patino Glucose [Mass/Vol] 104 mg/dL Normal 74-106 [facility] Comment on above: Performed By: #### D DAVIDSON, MG, PHOS, CMP, LIPID, URIC #### [facility] [address] [address] [address] Sarmad Patino Potassium [Moles/Vol] 4.0 mmol/L Normal 3.5-5.1 [facility] Comment on above: Performed By: #### D DAVIDSON, MG, PHOS, CMP, LIPID, URIC #### [facility] [address] [place] [address] Dr. Sarmad Patino Protein [Mass/Vol] 7.5 g/dL Normal 6.4-8.2 [facility] Comment on above: Performed By: #### D DAVIDSON, MG, PHOS, CMP, LIPID, URIC #### [facility] [address] [address] [address] Sarmad Patino Sodium [Moles/Vol] 140 mmol/L Normal 136-145 [facility] Comment on above: Performed By: #### D DAVIDSON, MG, PHOS, CMP, LIPID, URIC #### [facility] [address] [address] [address] Sarmad Patino Urea nitrogen [Mass/Vol] 19.0 mg/dL Critically high 7.0-18.0 [facility] Comment on above: Performed By: #### D DAVIDSON, MG, PHOS, CMP, LIPID, URIC #### [facility] [address] [address] [address] Sarmad Patino Urea nitrogen/Creatinine [Mass ratio] 21.8 mg/mg Normal [facility] Comment on above: Performed By: #### D DAVIDSON, MG, PHOS, CMP, LIPID, URIC #### [facility] [address] [address] [address] Sarmad Patino URIC ACID SERUMon 12-05-2021 Urate [Mass/Vol] 5.2 mg/dL Normal 2.6-6.0 [facility] Comment on above: Performed By: #### D DAVIDSON, MG, PHOS, CMP, LIPID, URIC #### [facility] [address] [address] [address] Sarmad SALAZAROLIMU, WHOLE BLOODon EVEROLIMUS 7.0 ng/mL Normal 3.0-8.0 [facility] Comment on above: Result Comment: Perf ormed by LC-MS/MS technology. Performed By: #### D DAVIDSON, MG, PHOS, CMP, LIPID, URIC #### [facility] [address] [place] [address] Dr. Sarmad Patino FK506 (TACROLIMUS) WHOLE BLO ODon 11-10-2021 Tacrolimus (FK506), Blood 6.4 ng/mL Normal 2.0-20.0 [facility] Comment on above: Result Comment: Trou gh (immediately following transplant) 15.0 . Trough (steady state, 2 weeks or more after transplant): 3.0 - 8.0 . Performed by LC-MS/MS technology. Performed By: #### D DAVIDSON, MG, PHOS, CMP, LIPID, URIC #### [facility] [address] [place] [address] Dr. Sarmad Patino BK VIRUS PCR QUANTon 022 BKV DNA QUANT PCR PLASMA Negative Normal Negative [facility] Comment on above: Result Comment: No B K DNA detected. . The linear range of the assay is 22 - 100,000,000 IU/mL. Performed By: #### U JUVE, LIPID, MG, CMP, DBIL, PHOS #### [facility] [address] [place] [address] Dr. Sarmad Patino Log10 BKV DNA Plasma Normal [facility] Comment on above: Performed By: #### U JUVE, LIPID, MG, CMP, DBIL, PHOS #### [facility] [address] [place] [address] Dr. Sarmad Patino BILIRUBIN CONJUGATED (DIRECT )on 11-07-2021 BILI, CONJUGATED 0.1 mg/dL Normal 0.0-0.2 [facility] Comment on above: Performed By: #### D DAVIDSON, MG, PHOS, CMP, LIPID, URIC #### [facility] [address] [place] [address] Dr. Sarmad Patino CBC AUTO DIFFon 11-07-2021 BASO # 0.0 103/ul Normal 0.0-0.1 [facility] Comment on above: Performed By: #### D DAVIDSON, MG, PHOS, CMP, LIPID, URIC #### [facility] [address] [place] [address] Dr. Sarmad Patino Basophils/100 WBC (Bld) 0.3 % Normal 0.2-2.0 [facility] Comment on above: Performed By: #### D DAVIDSON, MG, PHOS, CMP, LIPID, URIC #### [facility] [address] [place] [address] Dr. Sarmad Patino EO # 0.1 103/ul Normal 0.0-0.7 [facility] Comment on above: Performed By: #### D DAVIDSON, MG, PHOS, CMP, LIPID, URIC #### [facility] [address] [place] [address] Dr. Sarmad Patino Eosinophils/100 WBC (Bld) 2.1 % Normal 0.9-7.0 [facility] Comment on above: Performed By: #### D DAVIDSON, MG, PHOS, CMP, LIPID, URIC #### [facility] [address] [place] [address] Dr. Sarmad Patino Erythrocyte distribution width (RBC) [Ratio] 13.5 % Normal 11.0-15.0 [facility] Comment on above: Performed By: #### D DAVIDSON, MG, PHOS, CMP, LIPID, URIC #### [facility] [address] [place] [address] Dr. Sarmad Patino Hematocrit (Bld) [Volume fraction] 46.7 % Normal 36.0-48.0 [facility] Comment on above: Performed By: #### D DAVIDSON, MG, PHOS, CMP, LIPID, URIC #### [facility] [address] [place] [address] Dr. Sarmad Patino Hemoglobin (Bld) [Mass/Vol] 15.1 g/dL Normal 12.0-16.0 [facility] Comment on above: Performed By: #### D DAVIDSON, MG, PHOS, CMP, LIPID, URIC #### [facility] [address] [place] [address] Dr. Sarmad Patino IG # 0.03 10e3/ul Normal 0.00-0.03 [facility] Comment on above: Performed By: #### D DAVIDSON, MG, PHOS, CMP, LIPID, URIC #### [facility] [address] [place] [address] Dr. Sarmad Patino IG % 0.5 % Normal 0.0-0.5 [facility] Comment on above: Performed By: #### D DAVIDSON, MG, PHOS, CMP, LIPID, URIC #### [facility] [address] [place] [address] Dr. Sarmad Patino LYMPH # 1.3 103/ul Normal 1.2-3.8 [facility] Comment on above: Performed By: #### D DAVIDSON, MG, PHOS, CMP, LIPID, URIC #### [facility] [address] [address] [address] Sarmad Patino Lymphocytes/100 WBC (Bld) 19.9 % Critically low 20.5-60.0 [facility] Comment on above: Performed By: #### D DAVIDSON, MG, PHOS, CMP, LIPID, URIC #### [facility] [address] [address] [address] Sarmad Patino MANUAL DIFF REQ NO Normal [facility] Comment on above: Performed By: #### D DAVIDSON, MG, PHOS, CMP, LIPID, URIC #### [facility] [address] [address] [address] Sarmad Patino MCH (RBC) [Entitic mass] 28.6 pg Normal 26.7-34.0 [facility] Comment on above: Performed By: #### D DAVIDSON, MG, PHOS, CMP, LIPID, URIC #### [facility] [address] [place] [address] Dr. Sarmad Patino MCHC (RBC) [Mass/Vol] 32.3 g/dL Normal 29.9-35.2 [facility] Comment on above: Performed By: #### D DAVIDSON, MG, PHOS, CMP, LIPID, URIC #### [facility] [address] [place] [address] Dr. Sarmad Patino MCV (RBC) [Entitic vol] 88.4 fL Normal 81.0-99.0 [facility] Comment on above: Performed By: #### D DAVIDSON, MG, PHOS, CMP, LIPID, URIC #### [facility] [address] [place] [address] Dr. Sarmad Patino MONO # 0.8 103/ul Normal 0.3-0.8 [facility] Comment on above: Performed By: #### D DAVIDSON, MG, PHOS, CMP, LIPID, URIC #### [facility] [address] [place] [address] Dr. Sarmad Patino Monocytes/100 WBC (Bld) 12.9 % Critically high 1.7-12.0 [facility] Comment on above: Performed By: #### D DAVIDSON, MG, PHOS, CMP, LIPID, URIC #### [facility] [address] [address] [address] Sarmad Patino NEUT # 4.0 103/ul Normal 1.4-6.5 [facility] Comment on above: Performed By: #### D DAVIDSON, MG, PHOS, CMP, LIPID, URIC #### [facility] [address] [address] [address] Sarmad Patino Neutrophils/100 WBC (Bld) 64.3 % Normal 43.0-75.0 [facility] Comment on above: Performed By: #### D DAVIDSON, MG, PHOS, CMP, LIPID, URIC #### [facility] [address] [place] [address] Dr. Sarmad Patino Platelet mean volume (Bld) [Entitic vol] 11.3 fL Normal 9.5-13.5 [facility] Comment on above: Performed By: #### D DAVIDSON, MG, PHOS, CMP, LIPID, URIC #### [facility] [address] [place] [address] Dr. Sarmad Patino PLT 241 103/ul Normal 150-450 [facility] Comment on above: Performed By: #### D DAVIDSON, MG, PHOS, CMP, LIPID, URIC #### [facility] [address] [place] [address] Dr. Sarmad Patino RBC 5.28 106/ul Normal 4.20-5.40 [facility] Comment on above: Performed By: #### D DAVIDSON, MG, PHOS, CMP, LIPID, URIC #### [facility] [address] [place] [address] Dr. Sarmad Patino WBC 6.3 103/ul Normal 4.0-11.0 [facility] Comment on above: Performed By: #### D DAVIDSON, MG, PHOS, CMP, LIPID, URIC #### [facility] [address] [place] [address] Dr. Sarmad Patino GLYCOHEMOGLOBIN A1Con 2021 ADA RECOMMENDATION SEE BELOW Normal [facility] Comment on above: Result Comment: ADA RECOMMENDED LIMIT 4.0 - 6.0 ADA THERAPEUTIC TARGET < 7.0 ACTION SUGGESTED > 7.0 Performed By: #### D DAVIDSON, MG, PHOS, CMP, LIPID, URIC #### [facility] [address] [address] [address] Sarmad Patino Glucose [Mass/Vol] 120 mg/dL Normal [facility] Comment on above: Performed By: #### D DAVIDSON, MG, PHOS, CMP, LIPID, URIC #### [facility] [address] [address] [address] Sarmad Patino HbA1c (Bld) [Mass fraction] 5.8 % Normal 4.5-6.2 [facility] Comment on above: Performed By: #### D DAVIDSON, MG, PHOS, CMP, LIPID, URIC #### [facility] [address] [place] [address] Dr. Sarmad Patino LIPID PROFILEon 11-07-2021 CHOL-HDL RATIO NORM SEE BELOW Normal [facility] Comment on above: Result Comment: 3.3 - 4.4 LOW RISK 4.4 - 7.1 AVERAGE RISK 7.1 - 11.0 MODERATE RISK >11.0 HIGH RISK Performed By: #### D DAVIDSON, MG, PHOS, CMP, LIPID, URIC #### [facility] [address] [place] [address] Dr. Sarmad Patino Cholesterol [Mass/Vol] 157 mg/dL Normal <=200 [facility] Comment on above: Performed By: #### D DAVIDSON, MG, PHOS, CMP, LIPID, URIC #### [facility] [address] [place] [address] Dr. Sarmad Patino Cholesterol in HDL [Mass/Vol] 48 mg/dL Normal 40-60 [facility] Comment on above: Performed By: #### D DAVIDSON, MG, PHOS, CMP, LIPID, URIC #### [facility] [address] [place] [address] Dr. Sarmad Patino Cholesterol in LDL [Mass/Vol] 89.6 mg/dL Normal [facility] Comment on above: Performed By: #### D DAVIDSON, MG, PHOS, CMP, LIPID, URIC #### [facility] [address] [address] [address] Sarmad Patino Cholesterol.total/Cho lesterol in HDL [Mass ratio] 3.3 {ratio} Normal [facility] Comment on above: Performed By: #### D DAVIDSON, MG, PHOS, CMP, LIPID, URIC #### [facility] [address] [address] [address] Sarmad Patino HDL NORMAL > or = 60 mg/dl - LO W CARDIOVASCULAR RISK <40 mg/dl - HIGH CARDIOVASCULAR RISK Normal [facility] Comment on above: Performed By: #### D DAVIDSON, MG, PHOS, CMP, LIPID, URIC #### [facility] [address] [address] [address] Sarmad Patino LDL CALC NORMAL SEE BELOW Normal [facility] Comment on above: Result Comment: <100 mg/dl OPTIMAL 100 - 129 mg/dl NEAR OR ABOVE OPTIMAL 130 - 159 mg/dl BORDERLINE HIGH 160 - 189 mg/dl HIGH >190 mg/dl VERY HIGH Performed By: #### D DAVIDSON, MG, PHOS, CMP, LIPID, URIC #### [facility] [address] [address] [address] Sarmad Patino Triglyceride [Mass/Vol] 97 mg/dL Normal <=150 [facility] Comment on above: Performed By: #### D DAVIDSON, MG, PHOS, CMP, LIPID, URIC #### [facility] [address] [address] [address] Sarmad Patino VLDL CALC 19.4 mg/dL Normal [facility] Comment on above: Performed By: #### D DAVIDSON, MG, PHOS, CMP, LIPID, URIC #### [facility] [address] [address] [address] Sarmad Patino MAGNESIUMon 11-07-2021 Magnesium [Mass/Vol] 1.9 mg/dL Normal 1.8-2.4 [facility] Comment on above: Performed By: #### D DAVIDSON, MG, PHOS, CMP, LIPID, URIC #### [facility] [address] [address] [address] Sarmad Patino PHOSPHORUSon 11-07-2021 Phosphate [Mass/Vol] 3.4 mg/dL Normal 2.6-4.7 [facility] Comment on above: Performed By: #### D DAVIDSON, MG, PHOS, CMP, LIPID, URIC #### [facility] [address] [place] [address] Dr. Sarmad Patino PROF 14(COMP METB)on 022 Albumin [Mass/Vol] 3.6 g/dL Normal 3.4-5.0 [facility] Comment on above: Performed By: #### D DAVIDSON, MG, PHOS, CMP, LIPID, URIC #### [facility] [address] [place] [address] Dr. Sarmad Patino Albumin/Globulin [Mass ratio] 0.9 {ratio} Normal [facility] Comment on above: Performed By: #### D DAVIDSON, MG, PHOS, CMP, LIPID, URIC #### [facility] [address] [place] [address] Dr. Sarmad Patino ALP [Catalytic activity/Vol] 158 U/L Critically high 46-116 [facility] Comment on above: Performed By: #### D DAVIDSON, MG, PHOS, CMP, LIPID, URIC #### [facility] [address] [place] [address] Dr. Sarmad Patino ALT [Catalytic activity/Vol] 23 U/L Normal 14-59 [facility] Comment on above: Performed By: #### D DAVIDSON, MG, PHOS, CMP, LIPID, URIC #### [facility] [address] [place] [address] Dr. Sarmad Patino Anion gap [Moles/Vol] 14.8 mmol/L Normal [facility] Comment on above: Performed By: #### D DAVIDSON, MG, PHOS, CMP, LIPID, URIC #### [facility] [address] [place] [address] Dr. Sarmad Patino AST [Catalytic activity/Vol] 18 U/L Normal 15-37 [facility] Comment on above: Performed By: #### D DAVIDSON, MG, PHOS, CMP, LIPID, URIC #### [facility] [address] [place] [address] Dr. Sarmad Patino Bilirubin [Mass/Vol] 0.4 mg/dL Normal 0.2-1.0 [facility] Comment on above: Performed By: #### D DAVIDSON, MG, PHOS, CMP, LIPID, URIC #### [facility] [address] [place] [address] Dr. Sarmad Patino Calcium [Mass/Vol] 9.3 mg/dL Normal 8.5-10.1 [facility] Comment on above: Performed By: #### D DAVIDSON, MG, PHOS, CMP, LIPID, URIC #### [facility] [address] [address] [address] Sarmad Patino Chloride [Moles/Vol] 105 mmol/L Normal 98-107 [facility] Comment on above: Performed By: #### D DAVIDSON, MG, PHOS, CMP, LIPID, URIC #### [facility] [address] [place] [address] Dr. Sarmad Patino CO2 [Moles/Vol] 26.1 mmol/L Normal 21.0-32.0 [facility] Comment on above: Performed By: #### D DAVIDSON, MG, PHOS, CMP, LIPID, URIC #### [facility] [address] [place] [address] Dr. Sarmad Patino Creatinine [Mass/Vol] 0.84 mg/dL Normal 0.55-1.02 [facility] Comment on above: Performed By: #### D DAVIDSON, MG, PHOS, CMP, LIPID, URIC #### [facility] [address] [place] [address] Dr. Sarmad Patino EGFR-AF FINNISH >60 Normal >=60 [facility] Comment on above: Performed By: #### D DAVIDSON, MG, PHOS, CMP, LIPID, URIC #### [facility] [address] [place] [address] Dr. Sarmad Patino EGFR-NON AF FINNISH >60 Normal >=60 [facility] Comment on above: Performed By: #### D DAVIDSON, MG, PHOS, CMP, LIPID, URIC #### [facility] [address] [place] [address] Dr. Sarmad Patino Globulin (S) [Mass/Vol] 3.8 g/dL Normal [facility] Comment on above: Performed By: #### D DAVIDSON, MG, PHOS, CMP, LIPID, URIC #### [facility] [address] [address] [address] Sarmad Patino Glucose [Mass/Vol] 97 mg/dL Normal 74-106 [facility] Comment on above: Performed By: #### D DAVIDSON, MG, PHOS, CMP, LIPID, URIC #### [facility] [address] [place] [address] Dr. Sarmad Patino Potassium [Moles/Vol] 3.9 mmol/L Normal 3.5-5.1 [facility] Comment on above: Performed By: #### D DAVIDSON, MG, PHOS, CMP, LIPID, URIC #### [facility] [address] [place] [address] Dr. Sarmad Patino Protein [Mass/Vol] 7.4 g/dL Normal 6.4-8.2 [facility] Comment on above: Performed By: #### D DAVIDSON, MG, PHOS, CMP, LIPID, URIC #### [facility] [address] [address] [address] Sarmad Patino Sodium [Moles/Vol] 142 mmol/L Normal 136-145 [facility] Comment on above: Performed By: #### D DAVIDSON, MG, PHOS, CMP, LIPID, URIC #### [facility] [address] [place] [address] Dr. Sarmad Patino Urea nitrogen [Mass/Vol] 21.0 mg/dL Critically high 7.0-18.0 [facility] Comment on above: Performed By: #### D DAVIDSON, MG, PHOS, CMP, LIPID, URIC #### [facility] [address] [place] [address] Dr. Sarmad Patino Urea nitrogen/Creatinine [Mass ratio] 25.0 mg/mg Normal [facility] Comment on above: Performed By: #### D DAVIDSON, MG, PHOS, CMP, LIPID, URIC #### [facility] [address] [place] [address] Dr. Sarmad Patino URIC ACID SERUMon 11-07-2021 Urate [Mass/Vol] 5.1 mg/dL Normal 2.6-6.0 [facility] Comment on above: Performed By: #### D DAVIDSON, MG, PHOS, CMP, LIPID, URIC #### [facility] [address] [address] [address] Sarmad Patino BOX TEST SENT OUTon 10-16-19 22 SENT TO REF LAB 10/15/2021 Normal [facility] Comment on above: Performed By: #### D DAVIDSON, MG, PHOS, CMP, LIPID, URIC #### [facility] [address] [address] [address] Sarmad Patino EVEROLIMU, WHOLE BLOODon EVEROLIMUS 6.7 ng/mL Normal 3.0-8.0 [facility] Comment on above: Result Comment: Perf ormed by LC-MS/MS technology. Performed By: #### D DAVIDSON, MG, PHOS, CMP, LIPID, URIC #### [facility] [address] [address] [address] Sarmad Patino FK506 (TACROLIMUS) WHOLE BLO ODon 10-10-2021 Tacrolimus (FK506), Blood 5.9 ng/mL Normal 2.0-20.0 [facility] Comment on above: Result Comment: Trou gh (immediately following transplant) 15.0 . Trough (steady state, 2 weeks or more after transplant): 3.0 - 8.0 . Performed by LC-MS/MS technology. Performed By: #### D DAVIDSON, MG, PHOS, CMP, LIPID, URIC #### [facility] [address] [place] [address] Dr. Sarmad Patino BILIRUBIN CONJUGATED (DIRECT )on 10-08-2021 BILI, CONJUGATED 0.1 mg/dL Normal 0.0-0.2 [facility] Comment on above: Performed By: #### U JUVE, LIPID, MG, CMP, DBIL, PHOS #### [facility] [address] [address] [address] Sarmad Patino CBC AUTO DIFFon 10-08-2021 BASO # 0.0 103/ul Normal 0.0-0.1 [facility] Comment on above: Performed By: #### D DAVIDSON, MG, PHOS, CMP, LIPID, URIC #### [facility] [address] [place] [address] Dr. Sarmad Patino Basophils/100 WBC (Bld) 0.1 % Critically low 0.2-2.0 [facility] Comment on above: Performed By: #### D DAVIDSON, MG, PHOS, CMP, LIPID, URIC #### [facility] [address] [place] [address] Dr. Sarmad Patino EO # 0.1 103/ul Normal 0.0-0.7 [facility] Comment on above: Performed By: #### D DAVIDSON, MG, PHOS, CMP, LIPID, URIC #### [facility] [address] [place] [address] Dr. Sarmad Patino Eosinophils/100 WBC (Bld) 1.4 % Normal 0.9-7.0 [facility] Comment on above: Performed By: #### D DAVIDSON, MG, PHOS, CMP, LIPID, URIC #### [facility] [address] [place] [address] Dr. Sarmad Patino Erythrocyte distribution width (RBC) [Ratio] 13.6 % Normal 11.0-15.0 [facility] Comment on above: Performed By: #### D DAVIDSON, MG, PHOS, CMP, LIPID, URIC #### [facility] [address] [place] [address] Dr. Sarmad Patino Hematocrit (Bld) [Volume fraction] 47.5 % Normal 36.0-48.0 [facility] Comment on above: Performed By: #### D DAVIDSON, MG, PHOS, CMP, LIPID, URIC #### [facility] [address] [place] [address] Dr. Sarmad Patino Hemoglobin (Bld) [Mass/Vol] 15.7 g/dL Normal 12.0-16.0 [facility] Comment on above: Performed By: #### D DAVIDSON, MG, PHOS, CMP, LIPID, URIC #### [facility] [address] [place] [address] Dr. Sarmad Patino IG # 0.04 10e3/ul Critically high 0.00-0.03 [facility] Comment on above: Performed By: #### D DAVIDSON, MG, PHOS, CMP, LIPID, URIC #### [facility] [address] [address] [address] Sarmad Patino IG % 0.5 % Normal 0.0-0.5 [facility] Comment on above: Performed By: #### D DAVIDSON, MG, PHOS, CMP, LIPID, URIC #### [facility] [address] [place] [address] Dr. Sarmad Patino LYMPH # 1.3 103/ul Normal 1.2-3.8 [facility] Comment on above: Performed By: #### D DAVIDSON, MG, PHOS, CMP, LIPID, URIC #### [facility] [address] [place] [address] Dr. Sarmad Patino Lymphocytes/100 WBC (Bld) 15.4 % Critically low 20.5-60.0 [facility] Comment on above: Performed By: #### D DAVIDSON, MG, PHOS, CMP, LIPID, URIC #### [facility] [address] [address] [address] Sarmad Patino MANUAL DIFF REQ NO Normal [facility] Comment on above: Performed By: #### D DAVIDSON, MG, PHOS, CMP, LIPID, URIC #### [facility] [address] [place] [address] Dr. Sarmad Patino MCH (RBC) [Entitic mass] 29.1 pg Normal 26.7-34.0 [facility] Comment on above: Performed By: #### D DAVIDSON, MG, PHOS, CMP, LIPID, URIC #### [facility] [address] [address] [address] Sarmad Patino MCHC (RBC) [Mass/Vol] 33.1 g/dL Normal 29.9-35.2 [facility] Comment on above: Performed By: #### D DAVIDSON, MG, PHOS, CMP, LIPID, URIC #### [facility] [address] [place] [address] Dr. Sarmad Patino MCV (RBC) [Entitic vol] 88.0 fL Normal 81.0-99.0 [facility] Comment on above: Performed By: #### D DAVIDSON, MG, PHOS, CMP, LIPID, URIC #### [facility] [address] [place] [address] Dr. Sarmad Patino MONO # 0.9 103/ul Critically high 0.3-0.8 [facility] Comment on above: Performed By: #### D DAVIDSON, MG, PHOS, CMP, LIPID, URIC #### [facility] [address] [place] [address] Dr. Sarmad Patino Monocytes/100 WBC (Bld) 10.2 % Normal 1.7-12.0 [facility] Comment on above: Performed By: #### D DAVIDSON, MG, PHOS, CMP, LIPID, URIC #### [facility] [address] [place] [address] Dr. Sarmad Patino NEUT # 6.1 103/ul Normal 1.4-6.5 [facility] Comment on above: Performed By: #### D DAVIDSON, MG, PHOS, CMP, LIPID, URIC #### [facility] [address] [place] [address] Dr. Sarmad Patino Neutrophils/100 WBC (Bld) 72.4 % Normal 43.0-75.0 [facility] Comment on above: Performed By: #### D DAVIDSON, MG, PHOS, CMP, LIPID, URIC #### [facility] [address] [place] [address] Dr. Sarmad Patino Platelet mean volume (Bld) [Entitic vol] 11.1 fL Normal 9.5-13.5 [facility] Comment on above: Performed By: #### D DAVIDSON, MG, PHOS, CMP, LIPID, URIC #### [facility] [address] [place] [address] Dr. Sarmad Patino PLT 213 103/ul Normal 150-450 [facility] Comment on above: Performed By: #### D DAVIDSON, MG, PHOS, CMP, LIPID, URIC #### [facility] [address] [place] [address] Dr. Sarmad Patino RBC 5.40 106/ul Normal 4.20-5.40 [facility] Comment on above: Performed By: #### D DAVIDSON, MG, PHOS, CMP, LIPID, URIC #### [facility] [address] [address] [address] Sarmad Patino WBC 8.4 103/ul Normal 4.0-11.0 [facility] Comment on above: Performed By: #### D DAVIDSON, MG, PHOS, CMP, LIPID, URIC #### [facility] [address] [address] [address] Sarmad Patino LIPID PROFILEon 10-08-2021 CHOL-HDL RATIO NORM SEE BELOW Normal [facility] Comment on above: Result Comment: 3.3 - 4.4 LOW RISK 4.4 - 7.1 AVERAGE RISK 7.1 - 11.0 MODERATE RISK >11.0 HIGH RISK Performed By: #### D DAVIDSON, MG, PHOS, CMP, LIPID, URIC #### [facility] [address] [address] [address] Sarmad Patino Cholesterol [Mass/Vol] 155 mg/dL Normal <=200 [facility] Comment on above: Performed By: #### D DAVIDSON, MG, PHOS, CMP, LIPID, URIC #### [facility] [address] [address] [address] Sarmad Patino Cholesterol in HDL [Mass/Vol] 49 mg/dL Normal 40-60 [facility] Comment on above: Performed By: #### D DAVIDSON, MG, PHOS, CMP, LIPID, URIC #### [facility] [address] [address] [address] Sarmad Patino Cholesterol in LDL [Mass/Vol] 73.8 mg/dL Normal [facility] Comment on above: Performed By: #### D DAVIDSON, MG, PHOS, CMP, LIPID, URIC #### [facility] [address] [address] [address] Sarmad Patino Cholesterol.total/Cho lesterol in HDL [Mass ratio] 3.2 {ratio} Normal [facility] Comment on above: Performed By: #### D DAVIDSON, MG, PHOS, CMP, LIPID, URIC #### [facility] [address] [address] [address] Sarmad Patino HDL NORMAL > or = 60 mg/dl - LO W CARDIOVASCULAR RISK <40 mg/dl - HIGH CARDIOVASCULAR RISK Normal [facility] Comment on above: Performed By: #### D DAVIDSON, MG, PHOS, CMP, LIPID, URIC #### [facility] [address] [address] [address] Sarmad Patino LDL CALC NORMAL SEE BELOW Normal [facility] Comment on above: Result Comment: <100 mg/dl OPTIMAL 100 - 129 mg/dl NEAR OR ABOVE OPTIMAL 130 - 159 mg/dl BORDERLINE HIGH 160 - 189 mg/dl HIGH >190 mg/dl VERY HIGH Performed By: #### D DAVIDSON, MG, PHOS, CMP, LIPID, URIC #### [facility] [address] [address] [address] Sarmad Patino Triglyceride [Mass/Vol] 161 mg/dL Critically high <=150 [facility] Comment on above: Performed By: #### D DAVIDSON, MG, PHOS, CMP, LIPID, URIC #### [facility] [address] [address] [address] Sarmad Patino VLDL CALC 32.2 mg/dL Normal [facility] Comment on above: Performed By: #### D DAVIDSON, MG, PHOS, CMP, LIPID, URIC #### [facility] [address] [address] [address] Sarmad Patino MAGNESIUMon 10-08-2021 Magnesium [Mass/Vol] 1.6 mg/dL Critically low 1.8-2.4 [facility] Comment on above: Performed By: #### U JUVE, LIPID, MG, CMP, DBIL, PHOS #### [facility] [address] [address] [address] Sarmad Patino PHOSPHORUSon 10-08-2021 Phosphate [Mass/Vol] 3.5 mg/dL Normal 2.6-4.7 [facility] Comment on above: Performed By: #### U JUVE, LIPID, MG, CMP, DBIL, PHOS #### [facility] [address] [place] [address] Dr. Sarmad Patino PROF 14(COMP METB)on 022 Albumin [Mass/Vol] 3.6 g/dL Normal 3.4-5.0 [facility] Comment on above: Performed By: #### D DAVIDSON, MG, PHOS, CMP, LIPID, URIC #### [facility] [address] [place] [address] Dr. Sarmad Patino Albumin/Globulin [Mass ratio] 0.9 {ratio} Normal [facility] Comment on above: Performed By: #### D DAVIDSON, MG, PHOS, CMP, LIPID, URIC #### [facility] [address] [place] [address] Dr. Sarmad Patino ALP [Catalytic activity/Vol] 150 U/L Critically high 46-116 [facility] Comment on above: Performed By: #### D DAVIDSON, MG, PHOS, CMP, LIPID, URIC #### [facility] [address] [place] [address] Dr. Sarmad Patino ALT [Catalytic activity/Vol] 21 U/L Normal 14-59 [facility] Comment on above: Performed By: #### D DAVIDSON, MG, PHOS, CMP, LIPID, URIC #### [facility] [address] [place] [address] Dr. Sarmad Patino Anion gap [Moles/Vol] 14.0 mmol/L Normal [facility] Comment on above: Performed By: #### D DAVIDSON, MG, PHOS, CMP, LIPID, URIC #### [facility] [address] [place] [address] Dr. Sarmad Patino AST [Catalytic activity/Vol] 13 U/L Critically low 15-37 [facility] Comment on above: Performed By: #### D DAVIDSON, MG, PHOS, CMP, LIPID, URIC #### [facility] [address] [place] [address] Dr. Sarmad Patino Bilirubin [Mass/Vol] 0.5 mg/dL Normal 0.2-1.0 [facility] Comment on above: Performed By: #### D DAVIDSON, MG, PHOS, CMP, LIPID, URIC #### [facility] [address] [address] [address] Sarmad Patino Calcium [Mass/Vol] 9.8 mg/dL Normal 8.5-10.1 [facility] Comment on above: Performed By: #### D DAVIDSON, MG, PHOS, CMP, LIPID, URIC #### [facility] [address] [place] [address] Dr. Sarmad Patino Chloride [Moles/Vol] 105 mmol/L Normal 98-107 [facility] Comment on above: Performed By: #### D DAVIDSON, MG, PHOS, CMP, LIPID, URIC #### [facility] [address] [place] [address] Dr. Sarmad Patino CO2 [Moles/Vol] 25.9 mmol/L Normal 21.0-32.0 [facility] Comment on above: Performed By: #### D DAVIDSON, MG, PHOS, CMP, LIPID, URIC #### [facility] [address] [place] [address] Dr. Sarmad Patino Creatinine [Mass/Vol] 0.81 mg/dL Normal 0.55-1.02 [facility] Comment on above: Performed By: #### D DAVIDSON, MG, PHOS, CMP, LIPID, URIC #### [facility] [address] [place] [address] Dr. Sarmad Patino EGFR-AF FINNISH >60 Normal >=60 [facility] Comment on above: Performed By: #### D DAVIDSON, MG, PHOS, CMP, LIPID, URIC #### [facility] [address] [place] [address] Dr. Sarmad Patino EGFR-NON AF FINNISH >60 Normal >=60 [facility] Comment on above: Performed By: #### D DAVIDSON, MG, PHOS, CMP, LIPID, URIC #### [facility] [address] [place] [address] Dr. Sarmad Patino Globulin (S) [Mass/Vol] 3.8 g/dL Normal [facility] Comment on above: Performed By: #### D DAVIDSON, MG, PHOS, CMP, LIPID, URIC #### [facility] [address] [address] [address] Sarmad Patino Glucose [Mass/Vol] 101 mg/dL Normal 74-106 [facility] Comment on above: Performed By: #### D DAVIDSON, MG, PHOS, CMP, LIPID, URIC #### [facility] [address] [place] [address] Dr. Sarmad Patino Potassium [Moles/Vol] 3.9 mmol/L Normal 3.5-5.1 [facility] Comment on above: Performed By: #### D DAVIDSON, MG, PHOS, CMP, LIPID, URIC #### [facility] [address] [place] [address] Dr. Sarmad Patino Protein [Mass/Vol] 7.4 g/dL Normal 6.4-8.2 [facility] Comment on above: Performed By: #### D DAVIDSON, MG, PHOS, CMP, LIPID, URIC #### [facility] [address] [place] [address] Dr. Sarmad Patino Sodium [Moles/Vol] 141 mmol/L Normal 136-145 [facility] Comment on above: Performed By: #### D DAVIDSON, MG, PHOS, CMP, LIPID, URIC #### [facility] [address] [place] [address] Dr. Sarmad Patino Urea nitrogen [Mass/Vol] 18.0 mg/dL Normal 7.0-18.0 [facility] Comment on above: Performed By: #### D DAVIDSON, MG, PHOS, CMP, LIPID, URIC #### [facility] [address] [place] [address] Dr. Sarmad Patino Urea nitrogen/Creatinine [Mass ratio] 22.2 mg/mg Normal [facility] Comment on above: Performed By: #### D DAVIDSON, MG, PHOS, CMP, LIPID, URIC #### [facility] [address] [place] [address] Dr. Sarmad Patino URIC ACID SERUMon 10-08-2021 Urate [Mass/Vol] 4.7 mg/dL Normal 2.6-6.0 [facility] Comment on above: Performed By: #### D DAVIDSON, MG, PHOS, CMP, LIPID, URIC #### [facility] [address] [place] [address] Dr. Sarmad SALAZAROLIMU, WHOLE BLOODon EVEROLIMUS 8.0 ng/mL Normal 3.0-8.0 [facility] Comment on above: Result Comment: Perf ormed by LC-MS/MS technology. Performed By: #### U JUVE, LIPID, MG, CMP, DBIL, PHOS #### [facility] [address] [address] [address] Sarmad Patino FK506 (TACROLIMUS) WHOLE BLO ODon 09-14-2021 Tacrolimus (FK506), Blood 9.3 ng/mL Normal 2.0-20.0 [facility] Comment on above: Result Comment: Trou gh (immediately following transplant) 15.0 . Trough (steady state, 2 weeks or more after transplant): 3.0 - 8.0 . Performed by LC-MS/MS technology. Performed By: #### U JUVE, LIPID, MG, CMP, DBIL, PHOS #### [facility] [address] [place] [address] Dr. Sarmad Patino BK VIRUS PCR QUANTon 022 BKV DNA QUANT PCR PLASMA Negative Normal Negative [facility] Comment on above: Result Comment: No B K DNA detected. . The linear range of the assay is 22 - 100,000,000 IU/mL. Performed By: #### D DAVIDSON, MG, PHOS, CMP, LIPID, URIC #### [facility] [address] [place] [address] Dr. Sarmad Patino Log10 BKV DNA Plasma Normal [facility] Comment on above: Performed By: #### D DAVIDSON, MG, PHOS, CMP, LIPID, URIC #### [facility] [address] [place] [address] Dr. Sarmad Patino BILIRUBIN CONJUGATED (DIRECT )on 09-10-2021 BILI, CONJUGATED 0.1 mg/dL Normal 0.0-0.2 [facility] Comment on above: Performed By: #### D DAVIDSON, MG, PHOS, CMP, LIPID, URIC #### [facility] [address] [address] [address] Sarmad Patino CBC AUTO DIFFon 09-10-2021 BASO # 0.0 103/ul Normal 0.0-0.1 [facility] Comment on above: Performed By: #### D DAVIDSON, MG, PHOS, CMP, LIPID, URIC #### [facility] [address] [place] [address] Dr. Sarmad Patino Basophils/100 WBC (Bld) 0.1 % Critically low 0.2-2.0 [facility] Comment on above: Performed By: #### D DAVIDSON, MG, PHOS, CMP, LIPID, URIC #### [facility] [address] [place] [address] Dr. Sarmad Patino EO # 0.2 103/ul Normal 0.0-0.7 [facility] Comment on above: Performed By: #### D DAVIDSON, MG, PHOS, CMP, LIPID, URIC #### [facility] [address] [place] [address] Dr. Sarmad Patino Eosinophils/100 WBC (Bld) 2.3 % Normal 0.9-7.0 [facility] Comment on above: Performed By: #### D DAVIDSON, MG, PHOS, CMP, LIPID, URIC #### [facility] [address] [place] [address] Dr. Sarmad Patino Erythrocyte distribution width (RBC) [Ratio] 13.6 % Normal 11.0-15.0 [facility] Comment on above: Performed By: #### D DAVIDSON, MG, PHOS, CMP, LIPID, URIC #### [facility] [address] [place] [address] Dr. Sarmad Patino Hematocrit (Bld) [Volume fraction] 45.1 % Normal 36.0-48.0 [facility] Comment on above: Performed By: #### D DAVIDSON, MG, PHOS, CMP, LIPID, URIC #### [facility] [address] [place] [address] Dr. Sarmad Patino Hemoglobin (Bld) [Mass/Vol] 14.7 g/dL Normal 12.0-16.0 [facility] Comment on above: Performed By: #### D DAVIDSON, MG, PHOS, CMP, LIPID, URIC #### [facility] [address] [address] [address] Sarmad Patino IG # 0.03 10e3/ul Normal 0.00-0.03 [facility] Comment on above: Performed By: #### D DAVIDSON, MG, PHOS, CMP, LIPID, URIC #### [facility] [address] [place] [address] Dr. Sarmad Patino IG % 0.4 % Normal 0.0-0.5 [facility] Comment on above: Performed By: #### D DAVIDSON, MG, PHOS, CMP, LIPID, URIC #### [facility] [address] [place] [address] Dr. Sarmad Patino LYMPH # 1.3 103/ul Normal 1.2-3.8 [facility] Comment on above: Performed By: #### D DAVIDSON, MG, PHOS, CMP, LIPID, URIC #### [facility] [address] [place] [address] Dr. Sarmad Patino Lymphocytes/100 WBC (Bld) 18.9 % Critically low 20.5-60.0 [facility] Comment on above: Performed By: #### D DAVIDSON, MG, PHOS, CMP, LIPID, URIC #### [facility] [address] [place] [address] Dr. Sarmad Patino MANUAL DIFF REQ NO Normal [facility] Comment on above: Performed By: #### D DAVIDSON, MG, PHOS, CMP, LIPID, URIC #### [facility] [address] [place] [address] Dr. Sarmad Patino MCH (RBC) [Entitic mass] 29.0 pg Normal 26.7-34.0 [facility] Comment on above: Performed By: #### D DAVIDSON, MG, PHOS, CMP, LIPID, URIC #### [facility] [address] [place] [address] Dr. Sarmad Patino MCHC (RBC) [Mass/Vol] 32.6 g/dL Normal 29.9-35.2 [facility] Comment on above: Performed By: #### D DAVIDSON, MG, PHOS, CMP, LIPID, URIC #### [facility] [address] [place] [address] Dr. Sarmad Patino MCV (RBC) [Entitic vol] 89.0 fL Normal 81.0-99.0 [facility] Comment on above: Performed By: #### D DAVIDSON, MG, PHOS, CMP, LIPID, URIC #### [facility] [address] [place] [address] Dr. Sarmad Patino MONO # 0.8 103/ul Normal 0.3-0.8 [facility] Comment on above: Performed By: #### D DAVIDSON, MG, PHOS, CMP, LIPID, URIC #### [facility] [address] [place] [address] Dr. Sarmad Patino Monocytes/100 WBC (Bld) 11.9 % Normal 1.7-12.0 [facility] Comment on above: Performed By: #### D DAVIDSON, MG, PHOS, CMP, LIPID, URIC #### [facility] [address] [place] [address] Dr. Sarmad Patino NEUT # 4.6 103/ul Normal 1.4-6.5 [facility] Comment on above: Performed By: #### D DAVIDSON, MG, PHOS, CMP, LIPID, URIC #### [facility] [address] [place] [address] Dr. Sarmad Patino Neutrophils/100 WBC (Bld) 66.4 % Normal 43.0-75.0 [facility] Comment on above: Performed By: #### D DAVIDSON, MG, PHOS, CMP, LIPID, URIC #### [facility] [address] [place] [address] Dr. Sarmad Patino Platelet mean volume (Bld) [Entitic vol] 10.6 fL Normal 9.5-13.5 [facility] Comment on above: Performed By: #### D DAVIDSON, MG, PHOS, CMP, LIPID, URIC #### [facility] [address] [place] [address] Dr. Sarmad Patino PLT 233 103/ul Normal 150-450 [facility] Comment on above: Performed By: #### D DAVIDSON, MG, PHOS, CMP, LIPID, URIC #### [facility] [address] [address] [address] Sarmad Patino RBC 5.07 106/ul Normal 4.20-5.40 [facility] Comment on above: Performed By: #### D DAVIDSON, MG, PHOS, CMP, LIPID, URIC #### [facility] [address] [address] [address] Sarmad Patino WBC 6.9 103/ul Normal 4.0-11.0 [facility] Comment on above: Performed By: #### D DAVIDSON, MG, PHOS, CMP, LIPID, URIC #### [facility] [address] [address] [address] Sarmad Patino GLYCOHEMOGLOBIN A1Con 2021 ADA RECOMMENDATION SEE BELOW Normal [facility] Comment on above: Result Comment: ADA RECOMMENDED LIMIT 4.0 - 6.0 ADA THERAPEUTIC TARGET < 7.0 ACTION SUGGESTED > 7.0 Performed By: #### D DAVIDSON, MG, PHOS, CMP, LIPID, URIC #### [facility] [address] [address] [address] Sarmad Patino Glucose [Mass/Vol] 120 mg/dL Normal [facility] Comment on above: Performed By: #### D DAVIDSON, MG, PHOS, CMP, LIPID, URIC #### [facility] [address] [address] [address] Sarmad Patino HbA1c (Bld) [Mass fraction] 5.8 % Normal 4.5-6.2 [facility] Comment on above: Performed By: #### D DAVIDSON, MG, PHOS, CMP, LIPID, URIC #### [facility] [address] [address] [address] Sarmad Patino LIPID PROFILEon 09-10-2021 CHOL-HDL RATIO NORM SEE BELOW Normal [facility] Comment on above: Result Comment: 3.3 - 4.4 LOW RISK 4.4 - 7.1 AVERAGE RISK 7.1 - 11.0 MODERATE RISK >11.0 HIGH RISK Performed By: #### D DAVIDSON, MG, PHOS, CMP, LIPID, URIC #### [facility] [address] [address] [address] Sarmad Patino Cholesterol [Mass/Vol] 150 mg/dL Normal <=200 [facility] Comment on above: Performed By: #### D DAVIDSON, MG, PHOS, CMP, LIPID, URIC #### [facility] [address] [address] [address] Sarmad Patino Cholesterol in HDL [Mass/Vol] 47 mg/dL Normal 40-60 [facility] Comment on above: Performed By: #### D DAVIDSON, MG, PHOS, CMP, LIPID, URIC #### [facility] [address] [address] [address] Sarmad Patino Cholesterol in LDL [Mass/Vol] 78.4 mg/dL Normal [facility] Comment on above: Performed By: #### D DAVIDSON, MG, PHOS, CMP, LIPID, URIC #### [facility] [address] [address] [address] Sarmad Patino Cholesterol.total/Cho lesterol in HDL [Mass ratio] 3.2 {ratio} Normal [facility] Comment on above: Performed By: #### D DAVIDSON, MG, PHOS, CMP, LIPID, URIC #### [facility] [address] [address] [address] Sarmad Patino HDL NORMAL > or = 60 mg/dl - LO W CARDIOVASCULAR RISK <40 mg/dl - HIGH CARDIOVASCULAR RISK Normal [facility] Comment on above: Performed By: #### D DAVIDSON, MG, PHOS, CMP, LIPID, URIC #### [facility] [address] [address] [address] Sarmad Patino LDL CALC NORMAL SEE BELOW Normal [facility] Comment on above: Result Comment: <100 mg/dl OPTIMAL 100 - 129 mg/dl NEAR OR ABOVE OPTIMAL 130 - 159 mg/dl BORDERLINE HIGH 160 - 189 mg/dl HIGH >190 mg/dl VERY HIGH Performed By: #### D DAVIDSON, MG, PHOS, CMP, LIPID, URIC #### [facility] [address] [address] [address] Sarmad Patino Triglyceride [Mass/Vol] 123 mg/dL Normal <=150 [facility] Comment on above: Performed By: #### D DAVIDSON, MG, PHOS, CMP, LIPID, URIC #### [facility] [address] [place] [address] Dr. Sarmad Patino VLDL CALC 24.6 mg/dL Normal [facility] Comment on above: Performed By: #### D DAVIDSON, MG, PHOS, CMP, LIPID, URIC #### [facility] [address] [place] [address] Dr. Sarmad Patino MAGNESIUMon 09-10-2021 Magnesium [Mass/Vol] 1.5 mg/dL Critically low 1.8-2.4 [facility] Comment on above: Performed By: #### D DAVIDSON, MG, PHOS, CMP, LIPID, URIC #### [facility] [address] [place] [address] Dr. Sarmad Patino PHOSPHORUSon 09-10-2021 Phosphate [Mass/Vol] 3.8 mg/dL Normal 2.6-4.7 [facility] Comment on above: Performed By: #### D DAVIDSON, MG, PHOS, CMP, LIPID, URIC #### [facility] [address] [place] [address] Dr. Sarmad Patino PROF 14(COMP METB)on 022 Albumin [Mass/Vol] 3.4 g/dL Normal 3.4-5.0 [facility] Comment on above: Performed By: #### D DAVIDSON, MG, PHOS, CMP, LIPID, URIC #### [facility] [address] [place] [address] Dr. Sarmad Patino Albumin/Globulin [Mass ratio] 0.9 {ratio} Normal [facility] Comment on above: Performed By: #### D DAVIDSON, MG, PHOS, CMP, LIPID, URIC #### [facility] [address] [place] [address] Dr. Sarmad Pation ALP [Catalytic activity/Vol] 143 U/L Critically high 46-116 [facility] Comment on above: Performed By: #### D DAVIDSON, MG, PHOS, CMP, LIPID, URIC #### [facility] [address] [place], [place] [id number] Dr. Sarmad Patino ALT [Catalytic activity/Vol] 19 U/L Normal 14-59 [facility] Comment on above: Performed By: #### D DAVIDSON, MG, PHOS, CMP, LIPID, URIC #### [facility] [address] [place] [address] Dr. Sarmad Patino Anion gap [Moles/Vol] 13.4 mmol/L Normal [facility] Comment on above: Performed By: #### D DAVIDSON, MG, PHOS, CMP, LIPID, URIC #### [facility] [address] [place] [address] Dr. Sarmad Patino AST [Catalytic activity/Vol] 24 U/L Normal 15-37 [facility] Comment on above: Performed By: #### D DAVIDSON, MG, PHOS, CMP, LIPID, URIC #### [facility] [address] [place] [address] Dr. Sarmad Patino Bilirubin [Mass/Vol] 0.4 mg/dL Normal 0.2-1.0 [facility] Comment on above: Performed By: #### D DAVIDSON, MG, PHOS, CMP, LIPID, URIC #### [facility] [address] [address] [address] Sarmad Patino Calcium [Mass/Vol] 9.3 mg/dL Normal 8.5-10.1 [facility] Comment on above: Performed By: #### D DAVIDSON, MG, PHOS, CMP, LIPID, URIC #### [facility] [address] [place] [address] Dr. Sarmad Patino Chloride [Moles/Vol] 106 mmol/L Normal 98-107 [facility] Comment on above: Performed By: #### D DAVIDSON, MG, PHOS, CMP, LIPID, URIC #### [facility] [address] [place] [address] Dr. Sarmad Patino CO2 [Moles/Vol] 25.5 mmol/L Normal 21.0-32.0 [facility] Comment on above: Performed By: #### D DAVIDSON, MG, PHOS, CMP, LIPID, URIC #### [facility] [address] [address] [address] Sarmad Patino Creatinine [Mass/Vol] 0.85 mg/dL Normal 0.55-1.02 [facility] Comment on above: Performed By: #### D DAVIDSON, MG, PHOS, CMP, LIPID, URIC #### [facility] [address] [address] [address] Sarmad Patino EGFR-AF FINNISH >60 Normal >=60 [facility] Comment on above: Performed By: #### D DAVIDSON, MG, PHOS, CMP, LIPID, URIC #### [facility] [address] [address] [address] Sarmad Patino EGFR-NON AF FINNISH >60 Normal >=60 [facility] Comment on above: Performed By: #### D DAVIDSON, MG, PHOS, CMP, LIPID, URIC #### [facility] [address] [place] [address] Dr. Sarmad Patino Globulin (S) [Mass/Vol] 3.8 g/dL Normal [facility] Comment on above: Performed By: #### D DAVIDSON, MG, PHOS, CMP, LIPID, URIC #### [facility] [address] [address] [address] Sarmad Patino Glucose [Mass/Vol] 100 mg/dL Normal 74-106 [facility] Comment on above: Performed By: #### D DAVIDSON, MG, PHOS, CMP, LIPID, URIC #### [facility] [address] [address] [address] Sarmad Patino Potassium [Moles/Vol] 3.9 mmol/L Normal 3.5-5.1 [facility] Comment on above: Performed By: #### D DAVIDSON, MG, PHOS, CMP, LIPID, URIC #### [facility] [address] [address] [address] Sarmad Patino Protein [Mass/Vol] 7.2 g/dL Normal 6.4-8.2 [facility] Comment on above: Performed By: #### D DAVIDSON, MG, PHOS, CMP, LIPID, URIC #### [facility] [address] [place] [address] Dr. Sarmad Patino Sodium [Moles/Vol] 141 mmol/L Normal 136-145 [facility] Comment on above: Performed By: #### D DAVIDSON, MG, PHOS, CMP, LIPID, URIC #### [facility] [address] [address] [address] Sarmad Patino Urea nitrogen [Mass/Vol] 16.0 mg/dL Normal 7.0-18.0 [facility] Comment on above: Performed By: #### D DAVIDSON, MG, PHOS, CMP, LIPID, URIC #### [facility] [address] [address] [address] Sarmad Patino Urea nitrogen/Creatinine [Mass ratio] 18.8 mg/mg Normal [facility] Comment on above: Performed By: #### D DAVIDSON, MG, PHOS, CMP, LIPID, URIC #### [facility] [address] [address] [address] Sarmad Patino URIC ACID SERUMon 09-10-2021 Urate [Mass/Vol] 4.8 mg/dL Normal 2.6-6.0 [facility] Comment on above: Performed By: #### D DAVIDSON, MG, PHOS, CMP, LIPID, URIC #### [facility] [address] [address] [address] Sarmad Patino Urinalysis - AUTOMATEDon Appearance (U) cloudy [employer] Other Bilirubin Ql (U) Negative [employer] Other Color (U) pale yellow [employer] Other Glucose Ql (U) Negative [employer] Other Hemoglobin Ql (U) moderate [employer] Other Ketones Ql (U) Negative [employer] Other Leukocyte esterase Test strip Ql (U) moderate [employer] Other Nitrite Ql (U) Negative [employer] Other pH (U) 7.0 [pH] [employer] Other Protein Ql (U) Negative [employer] Other Specific gravity (U) [Rel density] 1.010 [employer] Other Urobilinogen (U) [Mass/Vol] 0.2 mg/dL [employer] Other Urinalysis - AUTOMATED [employer] Other Urine Cultureon 08-14-2021 Urine Culture 100,000 [employer] Other Urine Culture <16 Susceptible [employer] Other Urine Culture >16 Resistant [employer] Other Urine Culture <4 Susceptible [employer] Other Urine Culture <2 Susceptible [employer] Other Urine Culture <1 Susceptible [employer] Other Urine Culture <0.5 Susceptible [employer] Other Urine Culture <32 Susceptible [employer] Other Urine Culture <2/38 Susceptible [employer] Other Bacteria identified Cx Nom (U) Reason for Exam Dysuria Urine ORGANISM: Klebsiella pneumoniae (O:KLEPNE) [place] Count 100,000 Aerobic SHYLA Charge (NUC86) ---- [...] RESISTANT TO ALL B-LACTAM DRUGS. PERFORMED BY: [facility] [address] [place] [address] PATHOLOGIST BRIDGE TENDER LOVELY COLE M.D. Normal [facility] Comment on above: Performed By: #### C UU #### [facility] [address] *URINE CULTUREon 12-31-2017 Bacteria identified in Urine by Culture Clinical Report: (D) Specimen: URINE Collected: 12/31/2017 13:40 Status: Final Last Updated: 01/04/2018 12:38 ISO (Final) Diphtheroids >100,000 Cfu/Ml 2 Morphologies ISO (Final) Aerococcus urinae 50,000 - 100,000 Cfu/mL Result changed by [email or web address] on 01/04/2018 12:38. The previous result was: ISO (Prelim) Normal [facility] Comment on above: Performed By: #### 4 1000, 00645, 06873, 28306, 80914, 64885 ####[facility] [place] [address], [facility] CBC W/DIFFon 12-25-2017 ABS BASOPHILS 0.0 10*3/uL Normal 0.0-0.2 The [facility] Comment on above: Performed By: #### 5 0103 ####[facility] [place] [address], [facility] ABS IMM GRANS 0.0 10*3/uL Normal 0.0-0.2 The [facility] Comment on above: Performed By: #### 5 0103 ####[facility] [facility] [place] [address], [facility] ABS NEUTROPHILS 5.0 10*3/uL Normal 1.6-7.6 The [facility] Comment on above: Performed By: #### 5 0103 ####[facility] [place] [address], [facility] Basophils Auto #/vol (Bld) 0.1 % Normal 0.0-1.0 [facility] Comment on above: Performed By: #### 5 0103 ####[facility] [facility] [place] [place] [address], [facility] Eosinophils Auto #/vol (Bld) 0.1 10*3/uL Normal 0.0-0.5 [facility] Comment on above: Performed By: #### 5 0103 ####[facility] [facility].[address] Eosinophils/100 WBC Auto (Bld) 1.6 % Normal 0.0-6.0 [facility] Comment on above: Performed By: #### 5 0103 ####[facility] Erythrocyte distribution width Auto Ratio (RBC) 14.6 % Normal 11.5-15.0 [facility] Comment on above: Performed By: #### 5 3 ####[facility] [facility].[address] Hematocrit Auto Volume Fraction (Bld) 44.9 % Normal 36.0-45.0 The [facility] Comment on above: Performed By: #### 3 ####[facility] Hemoglobin mass conc (Bld) 14.9 g/dL Normal 12.0-15.0 [facility] Comment on above: Performed By: #### 5 0103 ####[facility] IMMATURE GRANS 0.4 % Normal 0.0-1.0 [facility] Comment on above: Performed By: #### 5 0103 ####[facility] Lymphocytes Auto #/vol (Bld) 1.0 10*3/uL Low 1.2-4.0 [facility] Comment on above: Performed By: #### 5 0103 ####[address] Lymphocytes/100 WBC Auto (Bld) 14.9 % Low 20.0-45.0 [facility] Comment on above: Performed By: #### 5 0103 ####[facility] MCH Auto Entitic mass (RBC) 28.8 pg Normal 27.0-33.0 [facility] Comment on above: Performed By: #### 5 0103 ####[facility] MCHC Auto mass conc (RBC) 33.2 g/dL Normal 32.0-35.0 [facility] Comment on above: Performed By: #### 5 3 ####[facility] MCV Auto Entitic volume (RBC) 86.7 fL Normal 82.0-98.0 The [facility] Comment on above: Performed By: #### 5 3 ####[facility] [place] [address] Monocytes Auto #/vol (Bld) 0.7 10*3/uL Normal 0.1-1.0 [facility] Comment on above: Performed By: #### 5 0103 ####[facility] [place] [address], [facility] MONOS 10.6 % Normal 5.0-12.0 [facility] Comment on above: Performed By: #### 5 0103 ####[facility] [facility] [place] [place] [address], [facility] Neutrophils/100 WBC Auto (Bld) 72.4 % High 40.0-72.0 The [facility] Comment on above: Performed By: #### 5 3 ####[facility] [facility].[address] Nucleated RBC/100 WBC Ratio (Bld) 0 % Normal 0-0 The [facility] Comment on above: Performed By: #### 5 3 ####[facility] [facility].[address] PLAT CNT 203 10*3/uL Normal 150-400 The [facility] Comment on above: Performed By: #### 5 3 ####[facility] [facility].[address] RBC Auto #/vol (Bld) 5.18 10*6/uL High 3.80-5.00 Th e [facility] Comment on above: Performed By: #### 5 3 ####[facility] [facility] [place] [place] [address], [facility] WBC Auto #/vol (Bld) 6.90 10*3/uL Normal 4.00-10.60 Th e [facility] Comment on above: Performed By: #### 5 102 ####[facility] [facility].[address] COMP METABOLIC PANELon 12-25 Albumin mass conc 4.3 g/dL Normal 3.5-5.7 The [facility] Comment on above: Performed By: #### 4 1000, 70233, 41933, 70924, 29624, 84708 ####[facility] [place] [address], [facility] ALKALINE PHOSPH 118 IU/L High 34-104 The [facility] Comment on above: Performed By: #### 4 1000, 64425, 38636, 00440, 81103, 34145 ####[facility] [place] [address], [facility] ALT enzyme act/vol 11 U/L Normal 7-52 The [facility] Comment on above: Performed By: #### 4 1000, 58664, 45867, 66359, 75997, 89342 ####[facility] AST enzyme act/vol 17 U/L Normal 13-39 The [facility] Comment on above: Performed By: #### 4 1000, 89740, 51879, 44973, 14394, 05282 ####[facility] [place] [address], [facility] Bilirubin mass conc 0.4 mg/dL Normal 0.3-1.0 The [facility] Comment on above: Performed By: #### 4 1000, 83591, 01867, 03144, 92306, 97899 ####[facility] [place] [address], [facility] Calcium mass conc 9.8 mg/dL Normal 8.6-10.3 The [facility] Comment on above: Performed By: #### 4 1000, 67126, 24766, 28174, 49397, 98836 ####[facility] [place] [address], [facility] Chloride molar conc 104 mmol/L Normal 98-107 The [facility] Comment on above: Performed By: #### 4 1000, 32178, 00519, 32795, 11261, 60954 ####[facility] [place] [address], [facility] CO2 molar conc 27 mmol/L Normal 21-31 The [facility] Comment on above: Performed By: #### 4 1000, 68129, 10371, 78351, 51488, 04303 ####[facility] [place] [address], [facility] Creatinine mass conc 0.76 mg/dL Normal 0.60-1.20 [facility] Comment on above: Performed By: #### 4 1000, 76041, 60789, 94487, 32853, 04895 ####[facility] [place] [address], [facility] GFR/1.73 sq M predicted among blacks MDRD vol rate/area (S/P/Bld) mL/min/{1.73_m2} Normal >60 The [facility] Comment on above: Performed By: #### 4 1000, 94452, 72848, 65276, 12044, 06599 ####[facility] [place] [address], [facility] GFR/1.73 sq M predicted among non-blacks MDRD vol rate/area (S/P/Bld) mL/min/{1.73_m2} Normal >60 The [facility] Comment on above: Performed By: #### 4 1000, 54888, 35463, 13933, 93551, 86459 ####[facility] [place] [address], [place] Glucose mass conc 94 mg/dL Normal 70-100 [facility] Comment on above: Performed By: #### 4 1000, 67968, 22035, 26514, 66215, 08266 ####[facility] Potassium molar conc 3.9 mmol/L Normal 3.5-5.1 The [facility] Comment on above: Performed By: #### 4 1000, 21502, 75949, 91226, 85718, 55880 ####[facility] [facility] Protein mass conc 7.2 g/dL Normal 6.0-8.3 The [facility] Comment on above: Performed By: #### 4 1000, 77021, 08644, 29929, 58594, 90788 ####[facility] [facility].[address] Sodium molar conc 140 mmol/L Normal 136-145 The [facility] Comment on above: Performed By: #### 4 1000, 34795, 44706, 85959, 90515, 89431 ####[facility] Urea nitrogen mass conc 15 mg/dL Normal 7-25 The [facility] Comment on above: Performed By: #### 4 1000, 47386, 21876, 15218, 67162, 81144 ####[facility] DIRECT BILIon 12-25-2017 Bilirubin.direct mass conc 0.1 mg/dL Normal 0.0-0.2 The [facility] Comment on above: Performed By: #### 4 1000, 56772, 20861, 21152, 56731, 85063 ####[facility] EVEROLIMUS 32471kw 8 EVEROLIMUS 4.7 ng/mL Normal The [facility] Comment on above: Result Comment: Ther [...] the transplantcenter.Test developed and characteristics determined by [facility]. See Compliance Statement B: Continuing Education Records & Resources/CSPerformed by [employer],[address] [place] [id number] roj.[employer], Leonid Antonio MD - Lab. Director LIPID PROFILEon 12-25-2017 Cholesterol in HDL mass conc 51 mg/dL Normal 23-92 [facility] Comment on above: Result Comment: Slig ht variation in normal range could be due to gender and/or age.HDL CHOLESTEROL REFERENCE RANGE:20 years and older Cardiovascular Risk> or =60 mg/dL Dopmjsvqz40 TO 59 mg/dL Low Risk<40 mg/dL High Risk Performed By: #### 4 5506, 82988, 78166, 75856, 08898, 17915 ####[facility] [place] [address], [facility] Cholesterol in LDL mass conc 58 mg/dL Normal 0-130 The [facility] Comment on above: Result Comment: LDL IS A CALCULATIONLDL IS ONLY VALID IF THE TRIG IS LESS THAN 400. Performed By: #### 4 5506, 83214, 64038, 97663, 57967, 39279 ####[facility] [place] [address], [facility] Cholesterol mass conc 122 mg/dL Normal 120-200 The [facility] Comment on above: Result Comment: CHOL ESTEROL REFERENCE RANGE:20 YEARS AND OLDER CARDIOVASCULAR RISKLess than 200 mg/dl Low Rnia371 to 239 mg/dl Borderline Fczm392 mg/dl and greater High Risk Performed By: #### 4 5506, 46127, 38459, 61965, 00371, 84401 ####[facility] [place] [address], [facility] Cholesterol.total/Cho lesterol in HDL mass ratio 2.4 {ratio} Normal .0-4.5 The [facility] Comment on above: Performed By: #### 4 5506, 13113, 23950, 22443, 85651, 64870 ####[facility] NON-HDL CHOLESTEROL 71 mg/dL Normal The [facility] Comment on above: Performed By: #### 4 5506, 13727, 04165, 90266, 50977, 09856 ####[facility] Triglyceride mass conc 65 mg/dL Normal 40-149 The [facility] Comment on above: Result Comment: TRIG LYCERIDE REFERENCE RANGE:20 YEARS AND OLDER CARDIOVASCULAR RISKLESS THAN 150 mg/dl LOW [id number] TO 199 mg/dl BORDERLINE MWQS222 mg/dl AND GREATER HIGH RISK Performed By: #### 4 5506, 10931, 78503, 69045, 88998, 78642 ####[facility] [place] [address], [facility] VLDL CHOL 13 mg/dL Normal 0-40 The [facility] Comment on above: Performed By: #### 4 5506, 85154, 75059, 30191, 49359, 42512 ####[facility] [place] [address], [facility] MAGNESIUM BLOODon 12-25-2017 Magnesium mass conc 1.8 mg/dL Low 1.9-2.7 The [facility] Comment on above: Performed By: #### 4 1000, 05309, 74783, 32928, 37585, 08997 ####[facility] [facility] [place] [address], [facility] PHOSPHORUS BLOODon 8 Phosphate mass conc 3.4 mg/dL Normal 2.5-5.0 The [facility] Comment on above: Performed By: #### 4 5506, 40404, 19419, 05945, 71503, 26565 ####[facility] [facility] [place] [place] [address], [facility] TACROLIMUSon 12-25-2017 Tacrolimus mass conc (Bld) 6.4 ng/mL Normal 5.0-20.0 The [facility] Comment on above: Result Comment: The [employer] Tacrolimus assay is a delayed one-step immunoassayfor the quantitative determination of tacrolimus in human whole bloodusing the chemiluminescent microparticle immunoassay (CMIA) technologywith flexible assay protocols, referred to as Chemiflex. Performed By: #### 4 1000, 72061, 81200, 90416, 26239, 43909 ####[facility] [facility] [place] [place] [address], [facility] URIC ACID BLOODon 12-25-2017 Urate mass conc 4.7 mg/dL Normal 2.3-6.6 The [facility] Comment on above: Performed By: #### 4 5506, 05632, 89708, 74531, 73198, 99526 ####[facility] [facility] [place] [place] [address], [facility] CBC W/DIFFon 10-30-2017 ABS BASOPHILS 0.0 10*3/uL Normal 0.0-0.2 The [facility] Comment on above: Performed By: #### 4 6447, 07137 ####[facility] [facility] [place] [place] [address], [facility] ABS IMM GRANS 0.0 10*3/uL Normal 0.0-0.2 The [facility] Comment on above: Performed By: #### 4 8226, 40916 ####[facility] [place] [address], [facility] ABS NEUTROPHILS 4.9 10*3/uL Normal 1.6-7.6 The [facility] Comment on above: Performed By: #### 4 4544, 40590 ####[facility] [place] [address], [facility] Basophils Auto #/vol (Bld) 0.1 % Normal 0.0-1.0 The [facility] Comment on above: Performed By: #### 4 4931, 30846 ####[facility] [place] [address], [facility] Eosinophils Auto #/vol (Bld) 0.1 10*3/uL Normal 0.0-0.5 The [facility] Comment on above: Performed By: #### 4 2419, 57420 ####[facility] [facility].[address] Eosinophils/100 WBC Auto (Bld) 1.4 % Normal 0.0-6.0 The [facility] Comment on above: Performed By: #### 4 4792, 57434 ####[facility] [facility].[address] Erythrocyte distribution width Auto Ratio (RBC) 14.6 % Normal 11.5-15.0 The [facility] Comment on above: Performed By: #### 7 5116, 16643 ####[facility] [facility].[address] Hematocrit Auto Volume Fraction (Bld) 46.8 % High 36.0-45.0 The [facility] Comment on above: Performed By: #### 1 3203, 57659 ####[facility] Hemoglobin mass conc (Bld) 15.1 g/dL High 12.0-15.0 The [facility] Comment on above: Performed By: #### 4 9398, 42388 ####[facility] IMMATURE GRANS 0.4 % Normal 0.0-1.0 The Nina [facility] Comment on above: Performed By: #### 4 9263, 65959 ####[facility] Lymphocytes Auto #/vol (Bld) 1.2 10*3/uL Normal 1.2-4.0 The [facility] Comment on above: Performed By: #### 4 2739, 90279 ####[place] [address] Lymphocytes/100 WBC Auto (Bld) 16.6 % Low 20.0-45.0 The [facility] Comment on above: Performed By: #### 2 1720, 06954 ####[facility] [place] [address] MCH Auto Entitic mass (RBC) 29.0 pg Normal 27.0-33.0 The [facility] Comment on above: Performed By: #### 4 1998, 18830 ####[facility] MCHC Auto mass conc (RBC) 32.3 g/dL Normal 32.0-35.0 The [facility] Comment on above: Performed By: #### 4 9069, 63313 ####[facility] MCV Auto Entitic volume (RBC) 89.8 fL Normal 82.0-98.0 The [facility] Comment on above: Performed By: #### 4 4930, 21313 ####[facility] [facility] [place] [place] [address], [facility] Monocytes Auto #/vol (Bld) 0.8 10*3/uL Normal 0.1-1.0 The [facility] Comment on above: Performed By: #### 4 6347, 28372 ####[facility] [facility] [place] [place] [address], [facility] MONOS 11.9 % Normal 5.0-12.0 The [facility] Comment on above: Performed By: #### 4 6447, 77569 ####[facility] [facility].[address] Neutrophils/100 WBC Auto (Bld) 69.6 % Normal 40.0-72.0 The [facility] Comment on above: Performed By: #### 4 2247, 64621 ####[facility] [facility].[address] Nucleated RBC/100 WBC Ratio (Bld) 0 % Normal 0-0 The [facility] Comment on above: Performed By: #### 4 7747, 90729 ####[facility] [facility].[address] PLAT CNT 200 10*3/uL Normal 150-400 The [facility] Comment on above: Performed By: #### 4 1347, 84061 ####[facility] [facility].[address] RBC Auto #/vol (Bld) 5.21 10*6/uL High 3.80-5.00 Th e [facility] Comment on above: Performed By: #### 4 0064, 53521 ####[facility] [facility].[address] WBC Auto #/vol (Bld) 7.04 10*3/uL Normal 4.00-10.60 Th e [facility] Comment on above: Performed By: #### 4 0335, 57746 ####[facility] [facility].[address] COMP METABOLIC PANELon 10-30 Albumin mass conc 4.1 g/dL Normal 3.5-5.7 The [facility] Comment on above: Performed By: #### 4 8647, 49338 ####[facility] [facility].[address] ALKALINE PHOSPH 114 IU/L High 34-104 The [facility] Comment on above: Performed By: #### 4 0847, 33413 ####[place] [address] [facility].[address] ALT enzyme act/vol 16 U/L Normal 7-52 The [facility] Comment on above: Performed By: #### 4 4847, 58027 ####[address] AST enzyme act/vol 18 U/L Normal 13-39 The [facility] Comment on above: Performed By: #### 5 5657, 53495 ####[place] [address] [facility] [place] [place] [address], [facility] Bilirubin mass conc 0.4 mg/dL Normal 0.3-1.0 The [facility] Comment on above: Performed By: #### 4 8847, 89241 ####[facility] [facility] [place] [place] [address], [facility] Calcium mass conc 9.7 mg/dL Normal 8.6-10.3 The [facility] Comment on above: Performed By: #### 8 8680, 38787 ####[address] [place] [address], [facility] Chloride molar conc 105 mmol/L Normal 98-107 The [facility] Comment on above: Performed By: #### 0 6847, 08577 ####[facility] [place] [address], [facility] CO2 molar conc 28 mmol/L Normal 21-[address] [facility] Comment on above: Performed By: #### 4 9396, 76526 ####[facility] [place] [address], [facility] Creatinine mass conc 0.82 mg/dL Normal 0.60-1.20 The [facility] Comment on above: Performed By: #### 8 6222, 09404 ####[facility] [place] [address], [facility] GFR/1.73 sq M predicted among blacks MDRD vol rate/area (S/P/Bld) mL/min/{1.73_m2} Normal >60 The [facility] Comment on above: Performed By: #### 8 5285, 16631 ####[facility] [place] [address], [facility] GFR/1.73 sq M predicted among non-blacks MDRD vol rate/area (S/P/Bld) mL/min/{1.73_m2} Normal >60 The [facility] Comment on above: Performed By: #### 3 1270, 14871 ####[facility] [place] [address], [facility] Glucose mass conc 90 mg/dL Normal 70-100 [facility] Comment on above: Performed By: #### 8 1075, 16044 ####[facility] [place] [address], [place] Potassium molar conc 4.1 mmol/L Normal 3.5-5.1 The [facility] Comment on above: Performed By: #### 5 5464, 46640 ####[facility] [place] [address], [place] Protein mass conc 6.9 g/dL Normal 6.0-8.3 The [facility] Comment on above: Performed By: #### 4 6447, 14474 ####[facility] [facility].[address] Sodium molar conc 138 mmol/L Normal 136-145 The [facility] Comment on above: Performed By: #### 4 6447, 37384 ####[facility] [facility].[address] Urea nitrogen mass conc 16 mg/dL Normal 7-25 The [facility] Comment on above: Performed By: #### 4 6447, 75207 ####[facility] [facility].[address] DIRECT BILIon 10-30-2017 Bilirubin.direct mass conc 0.0 mg/dL Normal 0.0-0.2 The [facility] Comment on above: Performed By: #### 4 5506, 62313, 66285, 32912, 17790, 02984 ####[facility] [facility].[address] EVEROLIMUS 45352zn 8 EVEROLIMUS 6.0 ng/mL Normal The [facility] Comment on above: Result Comment: Ther [...] the transplantcenter.Test developed and characteristics determined by [facility]. See Compliance Statement B: Contin[employer] Education Records & Resources/CSPerformed by [employer],[address], [facility] [place] [address] edp.[employer], Leonid Antonio MD - Lab. Director LIPID PROFILEon 10-30-2017 Cholesterol in HDL mass conc 50 mg/dL Normal 23-92 The [facility] Comment on above: Result Comment: Slig ht variation in normal range could be due to gender and/or age.HDL CHOLESTEROL REFERENCE RANGE:20 years and older Cardiovascular Risk> or =60 mg/dL [id number] TO 59 mg/dL Low Risk<40 mg/dL High Risk Performed By: #### 4 5506, 42021, 30169, 19426, 91652, 28415 ####[facility] [place] [address], [place] Cholesterol in LDL mass conc 85 mg/dL Normal 0-130 The [facility] Comment on above: Result Comment: LDL IS A CALCULATIONLDL IS ONLY VALID IF THE TRIG IS LESS THAN 400. Performed By: #### 4 5506, 36894, 80202, 84009, 23717, 10889 ####[facility] [place] [address], [place] Cholesterol mass conc 152 mg/dL Normal 120-200 The [facility] Comment on above: Result Comment: CHOL ESTEROL REFERENCE RANGE:20 YEARS AND OLDER CARDIOVASCULAR RISKLess than 200 mg/dl Low Dlbw994 to 239 mg/dl Borderline Llru138 mg/dl and greater High Risk Performed By: #### 4 5506, 70587, 96543, 03656, 73751, 95227 ####[facility] [place] [address], [place] Cholesterol.total/Cho lesterol in HDL mass ratio 3.0 {ratio} Normal .0-4.5 The [facility] Comment on above: Performed By: #### 4 5506, 68328, 32413, 62392, 87536, 82760 ####[facility] [facility].[address] NON-HDL CHOLESTEROL 102 mg/dL Normal The [facility] Comment on above: Performed By: #### 4 5506, 39298, 91688, 15679, 37356, 11494 ####[facility] [facility].[address] Triglyceride mass conc 87 mg/dL Normal 40-149 The [facility] Comment on above: Result Comment: TRIG LYCERIDE REFERENCE RANGE:20 YEARS AND OLDER CARDIOVASCULAR RISKLESS THAN 150 mg/dl LOW SPUS233 TO 199 mg/dl BORDERLINE QLOK299 mg/dl AND GREATER HIGH RISK Performed By: #### 4 5506, 08075, 80984, 42701, 16468, 31471 ####[facility] [facility].[address] VLDL CHOL 17 mg/dL Normal 0-40 The [facility] Comment on above: Performed By: #### 4 5506, 15606, 15420, 35646, 94163, 96735 ####[facility] [facility].[address] MAGNESIUM BLOODon 10-30-2017 Magnesium mass conc 1.9 mg/dL Normal 1.9-2.7 The [facility] Comment on above: Performed By: #### 4 5506, 06990, 57445, 39924, 55552, 79741 ####[facility] [place] [address], [facility] PHOSPHORUS BLOODon 8 Phosphate mass conc 3.7 mg/dL Normal 2.5-5.0 The [facility] Comment on above: Performed By: #### 4 5506, 39361, 78978, 09329, 50414, 49297 ####[facility] TACROLIMUSon 10-30-2017 Tacrolimus mass conc (Bld) 7.1 ng/mL Normal 5.0-20.0 The [facility] Comment on above: Result Comment: The [employer] Tacrolimus assay is a delayed one-step immunoassayfor the quantitative determination of tacrolimus in human whole bloodusing the chemiluminescent microparticle immunoassay (CMIA) technologywith flexible assay protocols, referred to as Chemiflex. Performed By: #### 9 9914 ####[facility] URIC ACID BLOODon 10-30-2017 Urate mass conc 4.6 mg/dL Normal 2.3-6.6 The [facility] Comment on above: Performed By: #### 4 6447, 98196 ####[place] [address] CBC W/DIFFon 10-23-2017 ABS BASOPHILS 0.0 10*3/uL Normal 0.0-0.2 The [facility] Comment on above: Performed By: #### 4 4325, 23689 ####[facility] ABS IMM GRANS 0.1 10*3/uL Normal 0.0-0.2 The [facility] Comment on above: Performed By: #### 4 1799, 65511 ####[facility] ABS NEUTROPHILS 5.8 10*3/uL Normal 1.6-7.6 The [facility] Comment on above: Performed By: #### 4 8858, 70836 ####[place] [address] Basophils Auto #/vol (Bld) 0.2 % Normal 0.0-1.0 The [facility] Comment on above: Performed By: #### 4 3446, 78773 ####[facility] [facility].[address] Eosinophils Auto #/vol (Bld) 0.1 10*3/uL Normal 0.0-0.5 The [facility] Comment on above: Performed By: #### 4 7988, 17884 ####[facility] [facility].[address] Eosinophils/100 WBC Auto (Bld) 0.7 % Normal 0.0-6.0 The [facility] Comment on above: Performed By: #### 4 2357, 13418 ####[place] [address] [facility].[address] Erythrocyte distribution width Auto Ratio (RBC) 14.6 % Normal 11.5-15.0 The [facility] Comment on above: Performed By: #### 0 3929, 92727 ####[address] Hematocrit Auto Volume Fraction (Bld) 44.2 % Normal 36.0-45.0 The [facility] Comment on above: Performed By: #### 2 2235, 62442 ####[place] [address] [facility].[address] Hemoglobin mass conc (Bld) 14.2 g/dL Normal 12.0-15.0 The [facility] Comment on above: Performed By: #### 8 8296, 57309 ####[place] [address] [facility].[address] IMMATURE GRANS 1.4 % High 0.0-1.0 The [facility] Comment on above: Performed By: #### 9 8713, 71162 ####[address] Lymphocytes Auto #/vol (Bld) 2.1 10*3/uL Normal 1.2-4.0 The [facility] Comment on above: Performed By: #### 4 2812, 33518 ####[facility] [facility].[address] Lymphocytes/100 WBC Auto (Bld) 22.5 % Normal 20.0-45.0 The [facility] Comment on above: Performed By: #### 4 0825, 27380 ####[facility] [facility].[address] MCH Auto Entitic mass (RBC) 28.5 pg Normal 27.0-33.0 The [facility] Comment on above: Performed By: #### 4 2345, 99490 ####[address] MCHC Auto mass conc (RBC) 32.1 g/dL Normal 32.0-35.0 The [facility] Comment on above: Performed By: #### 4 6095, 89174 ####[facility] [place] [address] MCV Auto Entitic volume (RBC) 88.8 fL Normal 82.0-98.0 The [facility] Comment on above: Performed By: #### 4 0691, 72030 ####[address] Monocytes Auto #/vol (Bld) 1.1 10*3/uL High 0.1-1.0 The [facility] Comment on above: Performed By: #### 4 8543, 14607 ####[facility] [place] [address] MONOS 12.0 % Normal 5.0-12.0 The [facility] Comment on above: Performed By: #### 7 3834, 97567 ####[address] Neutrophils/100 WBC Auto (Bld) 63.2 % Normal 40.0-72.0 [facility] Comment on above: Performed By: #### 4 6447, 80476 ####[facility] Nucleated RBC/100 WBC Ratio (Bld) 0 % Normal 0-0 The [facility] Comment on above: Performed By: #### 4 6447, 08663 ####[facility] [facility].[address] PLAT CNT 241 10*3/uL Normal 150-400 The [facility] Comment on above: Performed By: #### 4 6447, 38487 ####[place] [address] [facility].[address] RBC Auto #/vol (Bld) 4.98 10*6/uL Normal 3.80-5.00 Th [facility] Comment on above: Performed By: #### 4 6447, 22308 ####[facility] [facility].[address] WBC Auto #/vol (Bld) 9.14 10*3/uL Normal 4.00-10.60 Th e [facility] Comment on above: Performed By: #### 4 6447, 42559 ####[facility] [facility].[address] COMP METABOLIC PANELon 10-23 Albumin mass conc 3.8 g/dL Normal 3.5-5.7 [facility] Comment on above: Performed By: #### 4 6447, 87352 ####[place] [address] [facility].[address] ALKALINE PHOSPH 96 IU/L Normal 34-104 The [facility] Comment on above: Performed By: #### 4 6447, 16780 ####[facility] [place] [address], [place] ALT enzyme act/vol 15 U/L Normal 7-52 The [facility] Comment on above: Performed By: #### 4 0228, 58109 ####[facility] [place] [address], [place] AST enzyme act/vol 13 U/L Normal 13-39 [facility] Comment on above: Performed By: #### 4 0899, 29560 ####[facility] [place] [address], [place] Bilirubin mass conc 0.4 mg/dL Normal 0.3-1.0 The [facility] Comment on above: Performed By: #### 4 8743, 69203 ####[place] [address] [place] [address], [place] Calcium mass conc 9.2 mg/dL Normal 8.6-10.3 The [facility] Comment on above: Performed By: #### 6 4728, 17701 ####[facility] [place] [address], [place] Chloride molar conc 102 mmol/L Normal 98-107 The [facility] Comment on above: Performed By: #### 4 3100, 31908 ####[facility] [place] [address], [place] CO2 molar conc 29 mmol/L Normal 21-31 The [facility] Comment on above: Performed By: #### 4 2635, 18643 ####[facility] [place] [address], [place] Creatinine mass conc 0.80 mg/dL Normal 0.60-1.20 The [facility] Comment on above: Performed By: #### 5 6356, 62065 ####[facility] [place] [address], [place] GFR/1.73 sq M predicted among blacks MDRD vol rate/area (S/P/Bld) mL/min/{1.73_m2} Normal >60 The [facility] Comment on above: Performed By: #### 4 4571, 32619 ####[facility] [place] [address], [facility] GFR/1.73 sq M predicted among non-blacks MDRD vol rate/area (S/P/Bld) mL/min/{1.73_m2} Normal >60 The [facility] Comment on above: Performed By: #### 4 3157, 52473 ####[facility] [facility] [place] [address], [facility] Glucose mass conc 85 mg/dL Normal 70-100 The [facility] Comment on above: Performed By: #### 6 3287, 72227 ####[facility] [place] [address], [facility] Potassium molar conc 3.3 mmol/L Low 3.5-5.1 The [facility] Comment on above: Performed By: #### 5 7657, 02256 ####[facility] [place] [address], [facility] Protein mass conc 6.5 g/dL Normal 6.0-8.3 The [facility] Comment on above: Performed By: #### 3 9793, 06110 ####[facility] [place] [address], [facility] Sodium molar conc 139 mmol/L Normal 136-145 The [facility] Comment on above: Performed By: #### 1 7092, 93410 ####[facility] [place] [address], [place] Urea nitrogen mass conc 18 mg/dL Normal 7-25 The [facility] Comment on above: Performed By: #### 8 1328, 95918 ####[facility] [place] [address], [facility] DIRECT BILIon 10-23-2017 Bilirubin.direct mass conc 0.1 mg/dL Normal 0.0-0.2 The [facility] Comment on above: Performed By: #### 4 6447, 42521 ####[facility] [address], [facility] EVEROLIMUS [id number] 8 EVEROLIMUS 4.0 ng/mL Normal The [facility] Comment on above: Result Comment: Ther [...] the transplantcenter.Test developed and characteristics determined by [facility]. See Compliance Statement B: Continuing Education Records & Resources/CSPerformed by [facility],[address] [place] [address]80 xoz.[employer] Records [employer], Leonid Antonio MD - Lab. Director LIPID PROFILEon 10-23-2017 Cholesterol in HDL mass conc 53 mg/dL Normal 23-92 The [facility] Comment on above: Result Comment: Slig ht variation in normal range could be due to gender and/or age.HDL CHOLESTEROL REFERENCE RANGE:20 years and older Cardiovascular Risk> or =60 mg/dL Vteebpbtx53 TO 59 mg/dL Low Risk<40 mg/dL High Risk Performed By: #### 4 2159, 01098 ####[facility] [facility] [place] [place] [address], [facility] Cholesterol in LDL mass conc 68 mg/dL Normal 0-130 The [facility] Comment on above: Result Comment: LDL IS A CALCULATIONLDL IS ONLY VALID IF THE TRIG IS LESS THAN 400. Performed By: #### 4 1268, 45181 ####[facility] [place] [address], [facility] Cholesterol mass conc 135 mg/dL Normal 120-200 The [facility] Comment on above: Result Comment: CHOL ESTEROL REFERENCE RANGE:20 YEARS AND OLDER CARDIOVASCULAR RISKLess than 200 mg/dl Low Nscp734 to 239 mg/dl Borderline Lefx522 mg/dl and greater High Risk Performed By: #### 4 3049, 78997 ####[facility] [facility] [place] [place] [address], [facility] Cholesterol.total/Cho lesterol in HDL mass ratio 2.5 {ratio} Normal .0-4.5 The [facility] Comment on above: Performed By: #### 4 0114, 70878 ####[facility] [facility] [place] [place] [address], [facility] NON-HDL CHOLESTEROL 82 mg/dL Normal The [facility] Comment on above: Performed By: #### 4 6739, 71705 ####[facility] [facility] [place] [place] [address], [facility] Triglyceride mass conc 72 mg/dL Normal 40-149 The [facility] Comment on above: Result Comment: TRIG LYCERIDE REFERENCE RANGE:20 YEARS AND OLDER CARDIOVASCULAR RISKLESS THAN 150 mg/dl LOW [id number] TO 199 mg/dl BORDERLINE AMSY341 mg/dl AND GREATER HIGH RISK Performed By: #### 9 1440, 23074 ####[facility] [place] [address], [place] VLDL CHOL 14 mg/dL Normal 0-40 The [facility] Comment on above: Performed By: #### 4 6447, 65190 ####[facility] [facility].[address] MAGNESIUM BLOODon 10-23-2017 Magnesium mass conc 1.8 mg/dL Low 1.9-2.7 The [facility] Comment on above: Performed By: #### 4 6447, 90202 ####[facility] [place] [address] PHOSPHORUS BLOODon 8 Phosphate mass conc 3.7 mg/dL Normal 2.5-5.0 The [facility] Comment on above: Performed By: #### 4 6447, 11317 ####[place] [address] TACROLIMUSon 10-23-2017 Tacrolimus mass conc (Bld) 2.6 ng/mL Low 5.0-20.0 The [facility] Comment on above: Result Comment: The [employer] Tacrolimus assay is a delayed one-step immunoassayfor the quantitative determination of tacrolimus in human whole bloodusing the chemiluminescent microparticle immunoassay (CMIA) technologywith flexible assay protocols, referred to as Chemiflex. Performed By: #### 4 5847, 27680 ####[place] [address] URIC ACID BLOODon 10-23-2017 Urate mass conc 4.3 mg/dL Normal 2.3-6.6 The [facility] Comment on above: Performed By: #### 4 6447, 18606 ####[address] CBC W/DIFFon 09-25-2017 ABS BASOPHILS 0.0 10*3/uL Normal 0.0-0.2 The [facility] Comment on above: Performed By: #### 4 1000, 45959, 28248, 70460, 45775, 07638 ####[facility] [facility].[address] ABS IMM GRANS 0.0 10*3/uL Normal 0.0-0.2 The [facility] Comment on above: Performed By: #### 4 1000, 74920, 67708, 84266, 29015, 97189 ####[facility] [facility].[address] ABS NEUTROPHILS 4.4 10*3/uL Normal 1.6-7.6 The [facility] Comment on above: Performed By: #### 4 1000, 29149, 72893, 90422, 03742, 81115 ####[facility] [facility].[address] Basophils Auto #/vol (Bld) 0.2 % Normal 0.0-1.0 The [facility] Comment on above: Performed By: #### 4 1000, 38745, 06278, 07081, 53836, 33876 ####[facility] [facility].[address] Eosinophils Auto #/vol (Bld) 0.1 10*3/uL Normal 0.0-0.5 The [facility] Comment on above: Performed By: #### 4 1000, 23558, 63603, 70680, 70163, 60186 ####[facility] [facility].[address] Eosinophils/100 WBC Auto (Bld) 2.2 % Normal 0.0-6.0 The [facility] Comment on above: Performed By: #### 4 1000, 42562, 75181, 38018, 05087, 42049 ####[facility] [facility].[address] Erythrocyte distribution width Auto Ratio (RBC) 14.0 % Normal 11.5-15.0 The [facility] Comment on above: Performed By: #### 4 1000, 59508, 84843, 65517, 84975, 14399 ####[facility] [facility].[address] Hematocrit Auto Volume Fraction (Bld) 44.8 % Normal 36.0-45.0 The [facility] Comment on above: Performed By: #### 4 1000, 75483, 34314, 46957, 79550, 04646 ####[facility] [facility].[address] Hemoglobin mass conc (Bld) 14.5 g/dL Normal 12.0-15.0 The [facility] Comment on above: Performed By: #### 4 1000, 49590, 51874, 56793, 35302, 32260 ####[facility] [facility].[address] IMMATURE GRANS 0.3 % Normal 0.0-1.0 The [facility] Comment on above: Performed By: #### 4 1000, 30843, 53733, 83269, 67637, 89579 ####[facility] [facility].[address] Lymphocytes Auto #/vol (Bld) 1.1 10*3/uL Low 1.2-4.0 The [facility] Comment on above: Performed By: #### 4 1000, 69249, 12108, 02877, 21455, 93849 ####[facility] [facility].[address] Lymphocytes/100 WBC Auto (Bld) 17.0 % Low 20.0-45.0 The [facility] Comment on above: Performed By: #### 4 1000, 48738, 44137, 41095, 52811, 82740 ####[facility] [facility].[address] MCH Auto Entitic mass (RBC) 28.6 pg Normal 27.0-33.0 The [facility] Comment on above: Performed By: #### 4 1000, 97464, 40500, 89796, 21592, 95111 ####[facility] MCHC Auto mass conc (RBC) 32.4 g/dL Normal 32.0-35.0 The [facility] Comment on above: Performed By: #### 4 1000, 05769, 17050, 12606, 39773, 28703 ####[facility] MCV Auto Entitic volume (RBC) 88.4 fL Normal 82.0-98.0 The [facility] Comment on above: Performed By: #### 4 1000, 71214, 95163, 58096, 43229, 02832 ####[facility] Monocytes Auto #/vol (Bld) 0.7 10*3/uL Normal 0.1-1.0 The [facility] Comment on above: Performed By: #### 4 1000, 83978, 02699, 99512, 18405, 36399 ####[facility] MONOS 11.5 % Normal 5.0-12.0 The [facility] Comment on above: Performed By: #### 4 1000, 13258, 46532, 11251, 96854, 14301 ####[facility] Neutrophils/100 WBC Auto (Bld) 68.8 % Normal 40.0-72.0 The [facility] Comment on above: Performed By: #### 4 1000, 19561, 55910, 37155, 34898, 77662 ####[facility] [place] [address], [place] Nucleated RBC/100 WBC Ratio (Bld) 0 % Normal 0-0 [facility] Comment on above: Performed By: #### 4 1000, 22117, 34046, 83486, 97177, 88127 ####[facility] [place] [address], [facility] PLAT CNT 212 10*3/uL Normal 150-400 The [facility] Comment on above: Performed By: #### 4 1000, 24466, 22546, 89473, 88916, 31807 ####[facility] RBC Auto #/vol (Bld) 5.07 10*6/uL High 3.80-5.00 Th e [facility] Comment on above: Performed By: #### 4 1000, 01558, 83570, 82188, 62308, 56909 ####[facility] WBC Auto #/vol (Bld) 6.34 10*3/uL Normal 4.00-10.60 Th e [facility] Comment on above: Performed By: #### 4 1000, 57092, 27387, 46357, 93965, 60561 ####[facility] COMP METABOLIC PANELon 09-25 Albumin mass conc 4.0 g/dL Normal 3.5-5.7 The [facility] Comment on above: Performed By: #### 4 6447, 07574 ####[facility] ALKALINE PHOSPH 112 IU/L High 34-104 The [facility] Comment on above: Performed By: #### 4 6447, 55945 ####[facility] ALT enzyme act/vol 11 U/L Normal 7-52 The [facility] Comment on above: Performed By: #### 4 1747, 62461 ####[facility] [place] [address], [facility] AST enzyme act/vol 17 U/L Normal 13-39 The [facility] Comment on above: Performed By: #### 4 9247, 78786 ####[facility] [place] [address], [place] Bilirubin mass conc 0.5 mg/dL Normal 0.3-1.0 The [facility] Comment on above: Performed By: #### 4 6885, 65814 ####[facility] [place] [address], [place] Calcium mass conc 9.6 mg/dL Normal 8.6-10.3 The [facility] Comment on above: Performed By: #### 8 3183, 33301 ####[facility] [place] [address], [place] Chloride molar conc 104 mmol/L Normal 98-107 The [facility] Comment on above: Performed By: #### 4 4868, 45687 ####[facility] [place] [address], [place] CO2 molar conc 28 mmol/L Normal 21-31 The [facility] Comment on above: Performed By: #### 3 8206, 80597 ####[facility] [place] [address], [place] Creatinine mass conc 0.83 mg/dL Normal 0.60-1.20 The [facility] Comment on above: Performed By: #### 7 1562, 85038 ####[facility] [address], [place] GFR/1.73 sq M predicted among blacks MDRD vol rate/area (S/P/Bld) mL/min/{1.73_m2} Normal >60 The [facility] Comment on above: Performed By: #### 4 0847, 21415 ####[facility] [place] [address], [facility] GFR/1.73 sq M predicted among non-blacks MDRD vol rate/area (S/P/Bld) mL/min/{1.73_m2} Normal >60 The [facility] Comment on above: Performed By: #### 4 5647, 65486 ####[facility] [place] [address], [facility] Glucose mass conc 91 mg/dL Normal 70-100 The [facility] Comment on above: Performed By: #### 4 2147, 41130 ####[facility] [facility] [place] [address], [facility] Potassium molar conc 3.9 mmol/L Normal 3.5-5.1 The [facility] Comment on above: Performed By: #### 4 6847, 73598 ####[facility] [facility] [place] [address], [facility] Protein mass conc 7.0 g/dL Normal 6.0-8.3 The [facility] Comment on above: Performed By: #### 4 47, 16582 ####[facility] [place] [address], [facility] Sodium molar conc 140 mmol/L Normal 136-145 The [facility] Comment on above: Performed By: #### 4 7647, 27317 ####[facility] [place] [address], [facility] Urea nitrogen mass conc 15 mg/dL Normal 7-25 The [facility] Comment on above: Performed By: #### 4 0147, 51557 ####[facility] [place] [address], [facility] DIRECT BILIon 09-25-2017 Bilirubin.direct mass conc 0.1 mg/dL Normal 0.0-0.2 The [facility] Comment on above: Performed By: #### 4 2598, 53924 ####[facility] [id number], [facility] EVEROLIMUS [id number] 8 EVEROLIMUS 5.1 ng/mL Normal The [facility] Comment on above: Result Comment: Ther [...] the transplantcenter.Test developed and characteristics determined by [facility]. See Compliance Statement B: Continuing Education Records & Resources/CSPerformed by [employer],[address] [place] [address]98 auk.[employer], Leonid Antonio MD - Lab. Director LIPID PROFILEon 09-25-2017 Cholesterol in HDL mass conc 48 mg/dL Normal 23-92 The [facility] Comment on above: Result Comment: Slig ht variation in normal range could be due to gender and/or age.HDL CHOLESTEROL REFERENCE RANGE:20 years and older Cardiovascular Risk> or =60 mg/dL Mnellorbt82 TO 59 mg/dL Low Risk<40 mg/dL High Risk Performed By: #### 4 8378, 35139 ####[facility] [facility] [place] [address], [facility] Cholesterol in LDL mass conc 69 mg/dL Normal 0-130 [facility] Comment on above: Result Comment: LDL IS A CALCULATIONLDL IS ONLY VALID IF THE TRIG IS LESS THAN 400. Performed By: #### 4 1773, 01779 ####[facility] [place] [address], [facility] Cholesterol mass conc 138 mg/dL Normal 120-200 The [facility] Comment on above: Result Comment: CHOL ESTEROL REFERENCE RANGE:20 YEARS AND OLDER CARDIOVASCULAR RISKLess than 200 mg/dl Low Jqtl270 to 239 mg/dl Borderline Dayv142 mg/dl and greater High Risk Performed By: #### 4 5781, 98965 ####[facility] [address].[place] [address], [facility] Cholesterol.total/Cho lesterol in HDL mass ratio 2.9 {ratio} Normal .0-4.5 [facility] Comment on above: Performed By: #### 4 0481, 97244 ####[facility] [facility] [place] [place] [address], [facility] NON-HDL CHOLESTEROL 90 mg/dL Normal The [facility] Comment on above: Performed By: #### 4 2370, 55989 ####[facility] [facility] [place] [place] [address], [facility] Triglyceride mass conc 103 mg/dL Normal 40-149 The [facility] Comment on above: Result Comment: TRIG LYCERIDE REFERENCE RANGE:20 YEARS AND OLDER CARDIOVASCULAR RISKLESS THAN 150 mg/dl LOW [id number] TO 199 mg/dl BORDERLINE [id number] mg/dl AND GREATER HIGH RISK Performed By: #### 4 5201, 99909 ####[facility] [place] [address], [facility] VLDL CHOL 21 mg/dL Normal 0-40 The [facility] Comment on above: Performed By: #### 4 6473, 18660 ####[facility] [facility].[address] MAGNESIUM BLOODon 09-25-2017 Magnesium mass conc 1.8 mg/dL Low 1.9-2.7 The [facility] Comment on above: Performed By: #### 4 6447, 19837 ####[facility] [facility] [place] [place] [address], [facility] PHOSPHORUS BLOODon 8 Phosphate mass conc 3.4 mg/dL Normal 2.5-5.0 The [facility] Comment on above: Performed By: #### 4 6447, 84589 ####[facility] TACROLIMUSon 09-25-2017 Tacrolimus mass conc (Bld) 3.6 ng/mL Low 5.0-20.0 The [facility] Comment on above: Result Comment: The [employer] Tacrolimus assay is a delayed one-step immunoassayfor the quantitative determination of tacrolimus in human whole bloodusing the chemiluminescent microparticle immunoassay (CMIA) technologywith flexible assay protocols, referred to as Chemiflex. Performed By: #### 4 6447, 41055 ####[place] [address] URIC ACID BLOODon 09-25-2017 Urate mass conc 4.7 mg/dL Normal 2.3-6.6 The [facility] Comment on above: Performed By: #### 4 6447, 15514 ####[facility] BK VIRUS QUANTITATION PCR BL OODon 08-26-2017 BKV QUANT PCR Not detected Normal The [facility] Comment on above: Result Comment: Meth od: BK virus was measured by quantitative polymerase chain reactionusing a TaqMan probe targeting the polyomavirus BK PILOT CONTROL OPERATOR-1 gene.The lower limit of quantitation of the assay is 500 copies of BK genomeper milliliter of plasma or urine, and any detectable BK DNA below thatlevel is reported as: Detected, <500 copies/ml. Serial BK virusmeasurement can be used to monitor disease activity. (Reference:Kelsie simpson. J CLIN MICRO 2004; 42:0903-0908).This test was developed and its performance characteristics determinedby the [facility]. It has not been approvedby the [place] Food and Drug Administration. However, such approval is notrequired for clinical implementation, and test results have been shownto be clinically useful. This laboratory is CAP accredited and CLIAcertified to perform high complexity testing. Performed By: #### 4 1000, 32269, 52700, 04985, 52273, 89103 ####[facility] [facility].[address] LOG 10 COPIES Not detected Normal The [facility] Comment on above: Performed By: #### 4 1000, 81286, 02039, 16741, 24236, 90344 ####[place] [address] [facility].[address] CBC W/DIFFon 08-26-2017 ABS BASOPHILS 0.0 10*3/uL Normal 0.0-0.2 The [facility] Comment on above: Performed By: #### 4 1000, 36742, 69929, 16476, 10260, 73939 ####[facility] [facility].[address] ABS IMM GRANS 0.0 10*3/uL Normal 0.0-0.2 The [facility] Comment on above: Performed By: #### 4 1000, 99702, 56544, 53639, 14085, 30705 ####[facility] [facility].[address] ABS NEUTROPHILS 4.5 10*3/uL Normal 1.6-7.6 The [facility] Comment on above: Performed By: #### 4 1000, 61346, 96391, 64933, 08257, 39141 ####[facility] Basophils Auto #/vol (Bld) 0.2 % Normal 0.0-1.0 The [facility] Comment on above: Performed By: #### 4 1000, 66735, 85905, 62582, 93114, 50781 ####[place] [address] [facility].[address] Eosinophils Auto #/vol (Bld) 0.2 10*3/uL Normal 0.0-0.5 The [facility] Comment on above: Performed By: #### 4 1000, 89150, 21605, 07924, 33732, 58033 ####[address] Eosinophils/100 WBC Auto (Bld) 2.4 % Normal 0.0-6.0 The [facility] Comment on above: Performed By: #### 4 1000, 45834, 94689, 12132, 68274, 68220 ####[place] [address] [facility].[address] Erythrocyte distribution width Auto Ratio (RBC) 14.0 % Normal 11.5-15.0 The [facility] Comment on above: Performed By: #### 4 1000, 37974, 05283, 24703, 90095, 13666 ####[place] [address] [facility].[address] Hematocrit Auto Volume Fraction (Bld) 44.9 % Normal 36.0-45.0 The [facility] Comment on above: Performed By: #### 4 1000, 75988, 73628, 10742, 70830, 54711 ####[place] [id number] [facility].[address] Hemoglobin mass conc (Bld) 14.9 g/dL Normal 12.0-15.0 The [facility] Comment on above: Performed By: #### 4 1000, 19104, 86540, 04725, 31915, 63295 ####[facility] [facility].[address] IMMATURE GRANS 0.5 % Normal 0.0-1.0 [facility] Comment on above: Performed By: #### 4 1000, 20196, 96894, 79268, 37636, 94180 ####[facility] Lymphocytes Auto #/vol (Bld) 1.0 10*3/uL Low 1.2-4.0 The [facility] Comment on above: Performed By: #### 4 1000, 51392, 26335, 00766, 91286, 50702 ####[facility] Lymphocytes/100 WBC Auto (Bld) 15.8 % Low 20.0-45.0 The [facility] Comment on above: Performed By: #### 4 1000, 24598, 69141, 50335, 81956, 70101 ####[facility] MCH Auto Entitic mass (RBC) 29.1 pg Normal 27.0-33.0 The [facility] Comment on above: Performed By: #### 4 1000, 14949, 10791, 68473, 59031, 04551 ####[facility] MCHC Auto mass conc (RBC) 33.2 g/dL Normal 32.0-35.0 The [facility] Comment on above: Performed By: #### 4 1000, 27143, 32648, 41126, 36548, 11973 ####[facility] MCV Auto Entitic volume (RBC) 87.7 fL Normal 82.0-98.0 The [facility] Comment on above: Performed By: #### 4 1000, 96016, 96493, 95335, 49093, 77764 ####[facility]3000 [facility].[address] Monocytes Auto #/vol (Bld) 0.7 10*3/uL Normal 0.1-1.0 [facility] Comment on above: Performed By: #### 4 1000, 14200, 06330, 45313, 61237, 68071 ####[facility] MONOS 10.6 % Normal 5.0-12.0 The [facility] Comment on above: Performed By: #### 4 1000, 22144, 27054, 20233, 81086, 79843 ####[facility] [facility].[address] Neutrophils/100 WBC Auto (Bld) 70.5 % Normal 40.0-72.0 [facility] Comment on above: Performed By: #### 4 1000, 02256, 79899, 39731, 92867, 32083 ####[facility] [facility].[address] Nucleated RBC/100 WBC Ratio (Bld) 0 % Normal 0-0 [facility] Comment on above: Performed By: #### 4 1000, 74926, 22279, 24568, 46876, 76460 ####[facility] [facility].[address] PLAT CNT 231 10*3/uL Normal 150-400 The [facility] Comment on above: Performed By: #### 4 1000, 47191, 08276, 49706, 58228, 98455 ####[facility] [facility].[address] RBC Auto #/vol (Bld) 5.12 10*6/uL High 3.80-5.00 Th [facility] Comment on above: Performed By: #### 4 1000, 16695, 62598, 95154, 53441, 24005 ####[facility] [facility].[address] WBC Auto #/vol (Bld) 6.32 10*3/uL Normal 4.00-10.60 Th e [facility] Comment on above: Performed By: #### 4 1000, 23656, 26698, 13116, 16179, 88640 ####[facility] COMP METABOLIC PANELon 08-26 Albumin mass conc 4.3 g/dL Normal 3.5-5.7 The [facility] Comment on above: Performed By: #### 4 1000, 96700, 08476, 84938, 72022, 95588 ####[facility] [facility].[address] ALKALINE PHOSPH 125 IU/L High 34-104 [facility] Comment on above: Performed By: #### 4 1000, 53120, 87600, 45275, 86321, 27546 ####[facility] [facility].[address] ALT enzyme act/vol 17 U/L Normal 7-52 The [facility] Comment on above: Performed By: #### 4 1000, 63215, 28463, 27232, 77179, 59530 ####[facility] AST enzyme act/vol 23 U/L Normal 13-39 The [facility] Comment on above: Performed By: #### 4 1000, 03765, 36428, 28506, 03822, 68705 ####[facility] [place] [address], [facility] Bilirubin mass conc 0.4 mg/dL Normal 0.3-1.0 The [facility] Comment on above: Performed By: #### 4 1000, 13596, 55396, 57228, 80493, 89942 ####[facility] [place] [address], [facility] Calcium mass conc 9.6 mg/dL Normal 8.6-10.3 [facility] Comment on above: Performed By: #### 4 1000, 14039, 14645, 60839, 98342, 01491 ####[facility] [place] [address], [place] Chloride molar conc 104 mmol/L Normal 98-107 The [facility] Comment on above: Performed By: #### 4 1000, 91422, 25432, 54711, 78383, 55540 ####[facility] [place] [address], [place] CO2 molar conc 27 mmol/L Normal 21-31 The [facility] Comment on above: Performed By: #### 4 1000, 74559, 79855, 68116, 71122, 68233 ####[facility] [place] [address], [place] Creatinine mass conc 0.77 mg/dL Normal 0.60-1.20 The [facility] Comment on above: Performed By: #### 4 1000, 40474, 51130, 93882, 29797, 30826 ####[facility] [place] [address], [place] GFR/1.73 sq M predicted among blacks MDRD vol rate/area (S/P/Bld) mL/min/{1.73_m2} Normal >60 The [facility] Comment on above: Performed By: #### 4 1000, 07503, 12734, 49442, 45713, 04298 ####[facility] [place] [address], [place] GFR/1.73 sq M predicted among non-blacks MDRD vol rate/area (S/P/Bld) mL/min/{1.73_m2} Normal >60 The [facility] Comment on above: Performed By: #### 4 1000, 75815, 24847, 43139, 95258, 92997 ####[facility] [place] [address], [facility] Glucose mass conc 95 mg/dL Normal 70-100 The [facility] Comment on above: Performed By: #### 4 1000, 27433, 87027, 95330, 89355, 29018 ####[facility] [place] [address], [facility] Potassium molar conc 4.1 mmol/L Normal 3.5-5.1 The [facility] Comment on above: Performed By: #### 4 1000, 55173, 52658, 20253, 69372, 52366 ####[facility] [place] [address], [facility] Protein mass conc 7.3 g/dL Normal 6.0-8.3 The [facility] Comment on above: Performed By: #### 4 1000, 89108, 75538, 33062, 16804, 23350 ####[facility] [place] [address], [facility] Sodium molar conc 139 mmol/L Normal 136-145 The [facility] Comment on above: Performed By: #### 4 1000, 26209, 96364, 63562, 94425, 23551 ####[facility] [place] [address], [facility] Urea nitrogen mass conc 12 mg/dL Normal 7-25 The [facility] Comment on above: Performed By: #### 4 1000, 32281, 06509, 15258, 40684, 02443 ####[facility] [place] [address], [place] DIRECT BILIon 05-2018 Bilirubin.direct mass conc 0.1 mg/dL Normal 0.0-0.2 [facility] Comment on above: Performed By: #### 4 1000, 07680, 15107, 17652, 04901, 36902 ####[facility] [facility] [place] [place] [address], [facility] EVEROLIMUS [id number] 8 EVEROLIMUS 5.6 ng/mL Normal [facility] Comment on above: Result [...] the transplantcenter.Test developed and characteristics determined by [employer]. See Compliance Statement B: [employer]/CSPerformed by [employer],[address] [place] [address] rvd.[employer], Leonid Antonio MD - Lab. Director HEMOGLOBIN A1Con 08-26-2017 Glucose mass conc 114 mg/dL Normal 70-126 [facility] Comment on above: Performed By: #### 4 1000, 69134, 36422, 10597, 62669, 93299 ####[facility]3000 [place] [address], [facility] Hemoglobin A1c/Hemoglobin.total mass fraction (Bld) 5.6 % Normal 4.0-6.0 The [facility] Comment on above: Performed By: #### 4 1000, 38431, 70378, 48792, 95500, 03841 ####[facility] [place] [address], [facility] LIPID PROFILEon 08-26-2017 Cholesterol in HDL mass conc 49 mg/dL Normal 23-92 The [facility] Comment on above: Result Comment: Slig ht variation in normal range could be due to gender and/or age.HDL CHOLESTEROL REFERENCE RANGE:20 years and older Cardiovascular Risk> or =60 mg/dL [id number] TO 59 mg/dL Low Risk<40 mg/dL High Risk Performed By: #### 4 1000, 79012, 51950, 88107, 61878, 07119 ####[facility] [place] [address], [facility] Cholesterol in LDL mass conc 76 mg/dL Normal 0-130 The [facility] Comment on above: Result Comment: LDL IS A CALCULATIONLDL IS ONLY VALID IF THE TRIG IS LESS THAN 400. Performed By: #### 4 1000, 95608, 75360, 75157, 59795, 13704 ####[facility] [place] [address], [facility] Cholesterol mass conc 152 mg/dL Normal 120-200 The [facility] Comment on above: Result Comment: CHOL ESTEROL REFERENCE RANGE:20 YEARS AND OLDER CARDIOVASCULAR RISKLess than 200 mg/dl Low Inti004 to 239 mg/dl Borderline Zyrr505 mg/dl and greater High Risk Performed By: #### 4 1000, 95169, 42401, 81942, 24434, 61019 ####[facility] [place] [address], [facility] Cholesterol.total/Cho lesterol in HDL mass ratio 3.1 {ratio} Normal .0-4.5 The [facility] Comment on above: Performed By: #### 4 1000, 20341, 11016, 49967, 56017, 54247 ####[facility] NON-HDL CHOLESTEROL 103 mg/dL Normal The [facility] Comment on above: Performed By: #### 4 1000, 46441, 62816, 09333, 87644, 24546 ####[facility] Triglyceride mass conc 133 mg/dL Normal 40-149 The [facility] Comment on above: Result Comment: TRIG LYCERIDE REFERENCE RANGE:20 YEARS AND OLDER CARDIOVASCULAR RISKLESS THAN 150 mg/dl LOW TAXS460 TO 199 mg/dl BORDERLINE [id number] mg/dl AND GREATER HIGH RISK Performed By: #### 4 1000, 56988, 08838, 38134, 98890, 95499 ####[facility] VLDL CHOL 27 mg/dL Normal 0-40 The [facility] Comment on above: Performed By: #### 4 1000, 74018, 30780, 95175, 61728, 13346 ####[facility] MAGNESIUM BLOODon 08-26-2017 Magnesium mass conc 1.9 mg/dL Normal 1.9-2.7 The [facility] Comment on above: Performed By: #### 4 1000, 60154, 92934, 50456, 70894, 87240 ####[facility] [place] [address], [facility] PHOSPHORUS BLOODon 8 Phosphate mass conc 3.4 mg/dL Normal 2.5-5.0 The [facility] Comment on above: Performed By: #### 4 1000, 61132, 40775, 06317, 04981, 09568 ####[facility] [place] [address], [facility] TACROLIMUSon 08-26-2017 Tacrolimus mass conc (Bld) 4.3 ng/mL Low 5.0-20.0 The [facility] Comment on above: Result Comment: The [employer] Tacrolimus assay is a delayed one-step immunoassayfor the quantitative determination of tacrolimus in human whole bloodusing the chemiluminescent microparticle immunoassay (CMIA) technologywith flexible assay protocols, referred to as Chemiflex. Performed By: #### 4 1000, 17242, 51268, 30866, 40683, 04362 ####[facility] URIC ACID BLOODon 08-26-2017 Urate mass conc 4.6 mg/dL Normal 2.3-6.6 The [facility] Comment on above: Performed By: #### 4 1000, 74254, 56465, 23672, 29900, 52775 ####[facility] CBC W/DIFFon 07-23-2017 ABS BASOPHILS 0.0 10*3/uL Normal 0.0-0.2 The [facility] Comment on above: Performed By: #### 4 1000, 98246, 94383, 00418, 40197, 83061 ####[facility] ABS IMM GRANS 0.0 10*3/uL Normal 0.0-0.2 The [facility] Comment on above: Performed By: #### 4 1000, 44904, 47807, 31470, 22468, 29053 ####[facility] ABS NEUTROPHILS 4.4 10*3/uL Normal 1.6-7.6 The [facility] Comment on above: Performed By: #### 4 1000, 17218, 36611, 68835, 48890, 54082 ####[facility] [place] [address], [place] Basophils Auto #/vol (Bld) 0.2 % Normal 0.0-1.0 The [facility] Comment on above: Performed By: #### 4 1000, 85447, 16223, 28232, 22205, 92771 ####[facility] Eosinophils Auto #/vol (Bld) 0.1 10*3/uL Normal 0.0-0.5 The [facility] Comment on above: Performed By: #### 4 1000, 60660, 42108, 68053, 93792, 43675 ####[facility] Eosinophils/100 WBC Auto (Bld) 2.1 % Normal 0.0-6.0 The [facility] Comment on above: Performed By: #### 4 1000, 92182, 11188, 86855, 45124, 57774 ####[facility] Erythrocyte distribution width Auto Ratio (RBC) 13.7 % Normal 11.5-15.0 The [facility] Comment on above: Performed By: #### 4 1000, 03609, 14006, 33802, 78916, 33513 ####[facility] [facility].[address] Hematocrit Auto Volume Fraction (Bld) 44.4 % Normal 36.0-45.0 The [facility] Comment on above: Performed By: #### 4 1000, 09459, 74961, 95271, 45377, 81899 ####[facility] Hemoglobin mass conc (Bld) 14.7 g/dL Normal 12.0-15.0 The [facility] Comment on above: Performed By: #### 4 1000, 30866, 07238, 24154, 57652, 07849 ####[facility] IMMATURE GRANS 0.5 % Normal 0.0-1.0 The Nina barber [facility] Comment on above: Performed By: #### 4 1000, 68830, 71016, 44740, 59742, 99920 ####[address] Lymphocytes Auto #/vol (Bld) 1.0 10*3/uL Low 1.2-4.0 The [facility] Comment on above: Performed By: #### 4 1000, 57994, 57457, 29091, 10210, 20961 ####[place] [address] Lymphocytes/100 WBC Auto (Bld) 15.5 % Low 20.0-45.0 The [facility] Comment on above: Performed By: #### 4 1000, 07171, 94770, 53020, 14804, 30301 ####[facility] [place] [address].[address] MCH Auto Entitic mass (RBC) 28.9 pg Normal 27.0-33.0 The [facility] Comment on above: Performed By: #### 4 1000, 01181, 72659, 93150, 42359, 03053 ####[address] MCHC Auto mass conc (RBC) 33.1 g/dL Normal 32.0-35.0 The [facility] Comment on above: Performed By: #### 4 1000, 28599, 82507, 50659, 43972, 61747 ####[address] MCV Auto Entitic volume (RBC) 87.4 fL Normal 82.0-98.0 The [facility] Comment on above: Performed By: #### 4 1000, 91987, 27784, 16699, 29433, 03975 ####[facility] Monocytes Auto #/vol (Bld) 0.8 10*3/uL Normal 0.1-1.0 [facility] Comment on above: Performed By: #### 4 1000, 23526, 24841, 31076, 36477, 68473 ####[facility] MONOS 12.3 % High 5.0-12.0 The [facility] Comment on above: Performed By: #### 4 1000, 84400, 36335, 58799, 08874, 89990 ####[place] [address] [facility].[address] Neutrophils/100 WBC Auto (Bld) 69.4 % Normal 40.0-72.0 [facility] Comment on above: Performed By: #### 4 1000, 35042, 06568, 85856, 40456, 71012 ####[place] [address] [facility].[address] Nucleated RBC/100 WBC Ratio (Bld) 0 % Normal 0-0 [facility] Comment on above: Performed By: #### 4 1000, 59559, 47950, 95073, 93853, 32688 ####[facility] [facility].[address] PLAT CNT 218 10*3/uL Normal 150-400 The [facility] Comment on above: Performed By: #### 4 1000, 49263, 11663, 95625, 18207, 73555 ####[address] RBC Auto #/vol (Bld) 5.08 10*6/uL High 3.80-5.00 Th [facility] Comment on above: Performed By: #### 4 1000, 57427, 63990, 23869, 58420, 51976 ####[facility] WBC Auto #/vol (Bld) 6.3 10*3/uL Normal 4.0-10.6 The [facility] Comment on above: Performed By: #### 4 1000, 84163, 67219, 65336, 82707, 10032 ####[facility] COMP METABOLIC PANELon 07-23 Albumin mass conc 4.2 g/dL Normal 3.5-5.7 The [facility] Comment on above: Performed By: #### 4 1000, 92493, 09714, 72010, 35044, 62267 ####[facility] ALKALINE PHOSPH 113 IU/L High 34-104 [facility] Comment on above: Performed By: #### 4 1000, 07624, 44872, 91818, 61924, 45350 ####[facility] ALT enzyme act/vol 23 U/L Normal 7-52 The [facility] Comment on above: Performed By: #### 4 1000, 81599, 48996, 41536, 56828, 40494 ####[facility] AST enzyme act/vol 25 U/L Normal 13-39 The [facility] Comment on above: Performed By: #### 4 1000, 38386, 37634, 51018, 13071, 35538 ####[facility] Bilirubin mass conc 0.6 mg/dL Normal 0.3-1.0 [facility] Comment on above: Performed By: #### 4 1000, 40738, 08826, 73595, 30598, 07492 ####[facility] [place] [address], [place] Calcium mass conc 9.6 mg/dL Normal 8.6-10.3 [facility] Comment on above: Performed By: #### 4 1000, 62519, 81550, 22871, 96423, 51771 ####[facility] [place] [address], [place] Chloride molar conc 104 mmol/L Normal 98-107 The [facility] Comment on above: Performed By: #### 4 1000, 59358, 08248, 11038, 37571, 08783 ####[facility] [place] [address], [place] CO2 molar conc 25 mmol/L Normal 21-31 The [facility] Comment on above: Performed By: #### 4 1000, 98621, 49984, 66735, 15561, 63362 ####[facility] [place] [address], [place] Creatinine mass conc 0.80 mg/dL Normal 0.60-1.20 The [facility] Comment on above: Performed By: #### 4 1000, 84987, 03403, 33360, 45307, 72762 ####[facility] [place] [address], [place] GFR/1.73 sq M predicted among blacks MDRD vol rate/area (S/P/Bld) mL/min/{1.73_m2} Normal >60 The [facility] Comment on above: Performed By: #### 4 1000, 61724, 89317, 94476, 69275, 50218 ####[facility] [place] [address], [place] GFR/1.73 sq M predicted among non-blacks MDRD vol rate/area (S/P/Bld) mL/min/{1.73_m2} Normal >60 The [facility] Comment on above: Performed By: #### 4 1000, 92979, 70865, 90376, 38139, 35588 ####[facility] [place] [address], [place] Glucose mass conc 91 mg/dL Normal 70-100 The [facility] Comment on above: Performed By: #### 4 1000, 06451, 85263, 29034, 32748, 09157 ####[facility] [place] [address], [facility] Potassium molar conc 4.0 mmol/L Normal 3.5-5.1 The [facility] Comment on above: Performed By: #### 4 1000, 97521, 23614, 01633, 88403, 83771 ####[facility] [place] [address], [place] Protein mass conc 6.8 g/dL Normal 6.0-8.3 The [facility] Comment on above: Performed By: #### 4 1000, 33472, 64218, 15481, 84006, 91447 ####[facility] [place] [address], [facility] Sodium molar conc 140 mmol/L Normal 136-145 The [facility] Comment on above: Performed By: #### 4 1000, 36885, 13174, 93489, 83272, 78138 ####[facility] [place] [address], [place] Urea nitrogen mass conc 16 mg/dL Normal 7-25 The [facility] Comment on above: Performed By: #### 4 1000, 82402, 81310, 87463, 36525, 38377 ####[facility] [place] [address], [place] DIRECT BILIon 07-23-2017 Bilirubin.direct mass conc 0.2 mg/dL Normal 0.0-0.2 The [facility] Comment on above: Performed By: #### 4 1000, 25605, 01207, 67178, 98446, 43506 ####[facility] EVEROLIMUS 83710yl 8 EVEROLIMUS 5.3 ng/mL Normal The [facility] Comment on above: Result Comment: Ther [...] the transplantcenter.Test developed and characteristics determined by [employer]. See Compliance Statement B: [employer]/CSPerformed by [employer],[address] [place] [id number] kho.[employer], Leonid Antonio MD - Lab. Director LIPID PROFILEon 07-23-2017 Cholesterol in HDL mass conc 45 mg/dL Normal 23-92 The [facility] Comment on above: Result Comment: Slig ht variation in normal range could be due to gender and/or age.HDL CHOLESTEROL REFERENCE RANGE:20 years and older Cardiovascular Risk> or =60 mg/dL [id number] TO 59 mg/dL Low Risk<40 mg/dL High Risk Performed By: #### 4 1000, 57830, 83958, 08334, 71553, 37856 ####[facility] [place] [address], [facility] Cholesterol in LDL mass conc 79 mg/dL Normal 0-130 The [facility] Comment on above: Result Comment: LDL IS A CALCULATIONLDL IS ONLY VALID IF THE TRIG IS LESS THAN 400. Performed By: #### 4 1000, 57268, 24818, 33775, 95425, 01356 ####[facility] [place] [address], [facility] Cholesterol mass conc 141 mg/dL Normal 120-200 The [facility] Comment on above: Result Comment: CHOL ESTEROL REFERENCE RANGE:20 YEARS AND OLDER CARDIOVASCULAR RISKLess than 200 mg/dl Low Cxvn585 to 239 mg/dl Borderline Mwab751 mg/dl and greater High Risk Performed By: #### 4 1000, 03040, 13486, 48248, 15615, 52307 ####[facility] [facility] [place] [address], [facility] Cholesterol.total/Cho lesterol in HDL mass ratio 3.1 {ratio} Normal .0-4.5 [facility] Comment on above: Performed By: #### 4 1000, 75034, 68376, 90554, 18002, 60888 ####[facility] [place] [address], [facility] NON-HDL CHOLESTEROL 96 mg/dL Normal [facility] Comment on above: Performed By: #### 4 1000, 43208, 66291, 74352, 15396, 76006 ####[facility] [facility] [place] [address], [facility] Triglyceride mass conc 83 mg/dL Normal 40-149 The [facility] Comment on above: Result Comment: TRIG LYCERIDE REFERENCE RANGE:20 YEARS AND OLDER CARDIOVASCULAR RISKLESS THAN 150 mg/dl LOW [id number] TO 199 mg/dl BORDERLINE DUDG619 mg/dl AND GREATER HIGH RISK Performed By: #### 4 1000, 31816, 96073, 22423, 81511, 64696 ####[facility] VLDL CHOL 17 mg/dL Normal 0-40 The [facility] Comment on above: Performed By: #### 4 1000, 96036, 35865, 52111, 87013, 58307 ####[facility] [place] [address], [facility] MAGNESIUM BLOODon 07-23-2017 Magnesium mass conc 2.0 mg/dL Normal 1.9-2.7 The [facility] Comment on above: Performed By: #### 4 1000, 32809, 61407, 80534, 71185, 13846 ####[facility] [facility] [place] [address], [facility] PHOSPHORUS BLOODon 8 Phosphate mass conc 4.0 mg/dL Normal 2.5-5.0 The [facility] Comment on above: Performed By: #### 4 1000, 76981, 33088, 97560, 89095, 68559 ####[facility] [facility] TACROLIMUSon 07-23-2017 Tacrolimus mass conc (Bld) 4.6 ng/mL Low 5.0-20.0 The [facility] Comment on above: Result Comment: The [employer] Tacrolimus assay is a delayed one-step immunoassayfor the quantitative determination of tacrolimus in human whole bloodusing the chemiluminescent microparticle immunoassay (CMIA) technologywith flexible assay protocols, referred to as Chemiflex. Performed By: #### 4 1000, 41963, 17153, 37176, 41854, 94902 ####[facility] [facility] [place] [address], [facility] URIC ACID BLOODon 07-23-2017 Urate mass conc 4.7 mg/dL Normal 2.3-6.6 The [facility] Comment on above: Performed By: #### 4 1000, 33623, 35655, 75941, 81660, 23540 ####[facility] [facility].[address] CBC W/DIFFon 06-20-2017 ABS BASOPHILS 0.0 10*3/uL Normal 0.0-0.2 The [facility] Comment on above: Performed By: #### 4 1000, 98555, 22515, 33248, 59342, 51205 ####[facility] [facility].[address] ABS IMM GRANS 0.0 10*3/uL Normal 0.0-0.2 The [facility] Comment on above: Performed By: #### 4 1000, 66509, 50345, 30090, 43692, 76218 ####[facility] [facility].[address] ABS NEUTROPHILS 4.2 10*3/uL Normal 1.6-7.6 The [facility] Comment on above: Performed By: #### 4 1000, 95386, 53614, 33775, 94144, 33441 ####[facility] [facility].[address] Basophils Auto #/vol (Bld) 0.2 % Normal 0.0-1.0 The [facility] Comment on above: Performed By: #### 4 1000, 81862, 99109, 12195, 57066, 66743 ####[facility] [facility].[address] Eosinophils Auto #/vol (Bld) 0.1 10*3/uL Normal 0.0-0.5 The [facility] Comment on above: Performed By: #### 4 1000, 75077, 61050, 93280, 56537, 93979 ####[facility] [facility].[address] Eosinophils/100 WBC Auto (Bld) 1.5 % Normal 0.0-6.0 The [facility] Comment on above: Performed By: #### 4 1000, 44989, 88941, 35681, 33982, 10664 ####[facility] [facility].[address] Erythrocyte distribution width Auto Ratio (RBC) 13.4 % Normal 11.5-15.0 The [facility] Comment on above: Performed By: #### 4 1000, 20073, 52195, 11894, 68558, 78320 ####[facility] Hematocrit Auto Volume Fraction (Bld) 44.9 % Normal 36.0-45.0 The [facility] Comment on above: Performed By: #### 4 1000, 56594, 46539, 95274, 55483, 86014 ####[facility] [facility].[address] Hemoglobin mass conc (Bld) 14.9 g/dL Normal 12.0-15.0 The [facility] Comment on above: Performed By: #### 4 1000, 98821, 83913, 53234, 35828, 02933 ####[facility] [facility].[address] IMMATURE GRANS 0.2 % Normal 0.0-1.0 The [facility] Comment on above: Performed By: #### 4 1000, 72298, 77869, 00390, 72636, 33656 ####[facility] [facility].[address] Lymphocytes Auto #/vol (Bld) 1.1 10*3/uL Low 1.2-4.0 The [facility] Comment on above: Performed By: #### 4 1000, 56922, 77851, 42431, 67771, 48526 ####[facility] Lymphocytes/100 WBC Auto (Bld) 17.4 % Low 20.0-45.0 The [facility] Comment on above: Performed By: #### 4 1000, 71751, 08489, 06083, 54170, 83297 ####[facility] MCH Auto Entitic mass (RBC) 29.2 pg Normal 27.0-33.0 The [facility] Comment on above: Performed By: #### 4 1000, 61170, 92217, 08445, 65512, 82528 ####[facility] MCHC Auto mass conc (RBC) 33.2 g/dL Normal 32.0-35.0 The [facility] Comment on above: Performed By: #### 4 1000, 24679, 53695, 79596, 52265, 08355 ####[facility] MCV Auto Entitic volume (RBC) 87.9 fL Normal 82.0-98.0 The [facility] Comment on above: Performed By: #### 4 1000, 65721, 76760, 54043, 27446, 08370 ####[facility] Monocytes Auto #/vol (Bld) 0.7 10*3/uL Normal 0.1-1.0 The [facility] Comment on above: Performed By: #### 4 1000, 39872, 63736, 13662, 18778, 55073 ####[facility] MONOS 11.3 % Normal 5.0-12.0 The [facility] Comment on above: Performed By: #### 4 1000, 24338, 53506, 73452, 41081, 00741 ####[facility] Neutrophils/100 WBC Auto (Bld) 69.4 % Normal 40.0-72.0 The [facility] Comment on above: Performed By: #### 4 1000, 49650, 38754, 53566, 85766, 17634 ####[facility] [facility].[address] Nucleated RBC/100 WBC Ratio (Bld) 0 % Normal 0-0 The [facility] Comment on above: Performed By: #### 4 1000, 19582, 39330, 13160, 35116, 10972 ####[facility] [facility].[address] PLAT CNT 198 10*3/uL Normal 150-400 The [facility] Comment on above: Performed By: #### 4 1000, 05196, 02875, 52181, 35312, 33077 ####[facility] [facility].[address] RBC Auto #/vol (Bld) 5.11 10*6/uL High 3.80-5.00 [facility] Comment on above: Performed By: #### 4 1000, 02961, 25591, 53578, 05433, 76924 ####[facility] [facility].[address] WBC Auto #/vol (Bld) 6.0 10*3/uL Normal 4.0-10.6 The [facility] Comment on above: Performed By: #### 4 1000, 88843, 76214, 74554, 18831, 14790 ####[facility] [facility].[address] COMP METABOLIC PANELon 06-20 Albumin mass conc 4.4 g/dL Normal 3.5-5.7 The [facility] Comment on above: Performed By: #### 4 1000, 77898, 13098, 43408, 61414, 38408 ####[facility] [place] [address], [facility] ALKALINE PHOSPH 133 IU/L High 34-104 The [facility] Comment on above: Performed By: #### 4 1000, 99102, 75739, 51850, 46523, 35517 ####[facility] [place] [address], [facility] ALT enzyme act/vol 16 U/L Normal 7-52 The [facility] Comment on above: Performed By: #### 4 1000, 20377, 29863, 29955, 92956, 62606 ####[facility] [place] [address], [facility] AST enzyme act/vol 21 U/L Normal 13-39 The [facility] Comment on above: Performed By: #### 4 1000, 69892, 82032, 82262, 41873, 81591 ####[facility] [place] [address], [facility] Bilirubin mass conc 0.8 mg/dL Normal 0.3-1.0 The [facility] Comment on above: Performed By: #### 4 1000, 78074, 03692, 63151, 04882, 87259 ####[facility] [place] [address], [facility] Calcium mass conc 10.0 mg/dL Normal 8.6-10.3 The [facility] Comment on above: Performed By: #### 4 1000, 23580, 67339, 04990, 27957, 39989 ####[facility] [place] [address], [facility] Chloride molar conc 106 mmol/L Normal 98-107 The [facility] Comment on above: Performed By: #### 4 1000, 08038, 31354, 42719, 12520, 97240 ####[facility] [place] [address], [place] CO2 molar conc 27 mmol/L Normal 21-31 The [facility] Comment on above: Performed By: #### 4 1000, 13129, 74545, 91279, 32514, 11725 ####[facility] [place] [address], [place] Creatinine mass conc 0.74 mg/dL Normal 0.60-1.20 [facility] Comment on above: Performed By: #### 4 1000, 99673, 61545, 50544, 34795, 82942 ####[facility] [place] [address], [place] GFR/1.73 sq M predicted among blacks MDRD vol rate/area (S/P/Bld) mL/min/{1.73_m2} Normal >60 The [facility] Comment on above: Performed By: #### 4 1000, 02433, 06586, 25231, 45334, 52429 ####[facility] [place] [address], [place] GFR/1.73 sq M predicted among non-blacks MDRD vol rate/area (S/P/Bld) mL/min/{1.73_m2} Normal >60 The [facility] Comment on above: Performed By: #### 4 1000, 32460, 98271, 61068, 55338, 35232 ####[facility] [place] [address], [place] Glucose mass conc 95 mg/dL Normal 70-100 [facility] Comment on above: Performed By: #### 4 1000, 56338, 13915, 07041, 10989, 70447 ####[facility] [place] [address], [place] Potassium molar conc 3.8 mmol/L Normal 3.5-5.1 [facility] Comment on above: Performed By: #### 4 1000, 61507, 43467, 75178, 13068, 35659 ####[facility] Protein mass conc 7.3 g/dL Normal 6.0-8.3 The [facility] Comment on above: Performed By: #### 4 1000, 07157, 81400, 57082, 90126, 11694 ####[facility] Sodium molar conc 137 mmol/L Normal 136-145 The [facility] Comment on above: Performed By: #### 4 1000, 29415, 68923, 74970, 81577, 62689 ####[facility] Urea nitrogen mass conc 16 mg/dL Normal 7-25 The [facility] Comment on above: Performed By: #### 4 1000, 62125, 72321, 60094, 64936, 93085 ####[facility] [facility].[address] DIRECT BILIon 06-20-2017 Bilirubin.direct mass conc 0.1 mg/dL Normal 0.0-0.2 The [facility] Comment on above: Performed By: #### 4 1000, 90912, 07948, 23475, 29720, 53906 ####[facility] [facility].[address] EVEROLIMUS 37340io 8 EVEROLIMUS 6.7 ng/mL Normal The [facility] Comment on above: Result Comment: Ther [...] the transplantcenter.Test developed and characteristics determined by [employer]. See Compliance Statement B: [employer]/CSPerformed by [employer],[address] [place] [id number] [employer], Leonid Antonio MD - Lab. Director LIPID PROFILEon 06-20-2017 Cholesterol in HDL mass conc 45 mg/dL Normal 23-92 The [facility] Comment on above: Result Comment: Slig ht variation in normal range could be due to gender and/or age.HDL CHOLESTEROL REFERENCE RANGE:20 years and older Cardiovascular Risk> or =60 mg/dL [id number] TO 59 mg/dL Low Risk<40 mg/dL High Risk Performed By: #### 4 1000, 36170, 34948, 76192, 28448, 73229 ####[facility] [facility].[address] Cholesterol in LDL mass conc 58 mg/dL Normal 0-130 The [facility] Comment on above: Result Comment: LDL IS A CALCULATIONLDL IS ONLY VALID IF THE TRIG IS LESS THAN 400. Performed By: #### 4 1000, 14054, 43702, 45483, 16127, 38520 ####[facility] [place] [address], [facility] Cholesterol mass conc 126 mg/dL Normal 120-200 The [facility] Comment on above: Result Comment: CHOL ESTEROL REFERENCE RANGE:20 YEARS AND OLDER CARDIOVASCULAR RISKLess than 200 mg/dl Low Mcou954 to 239 mg/dl Borderline Zutd867 mg/dl and greater High Risk Performed By: #### 4 1000, 53395, 49600, 34696, 61503, 19642 ####[facility] Cholesterol.total/Cho lesterol in HDL mass ratio 2.8 {ratio} Normal .0-4.5 The [facility] Comment on above: Performed By: #### 4 1000, 04232, 51352, 31122, 21889, 11550 ####[facility], [place] [address] [place] [address] NON-HDL CHOLESTEROL 81 mg/dL Normal The [facility] Comment on above: Performed By: #### 4 1000, 86167, 85102, 57339, 32848, 36630 ####[facility] Triglyceride mass conc 113 mg/dL Normal 40-149 The [facility] Comment on above: Result Comment: TRIG LYCERIDE REFERENCE RANGE:20 YEARS AND OLDER CARDIOVASCULAR RISKLESS THAN 150 mg/dl LOW [id number] TO 199 mg/dl BORDERLINE [id number] mg/dl AND GREATER HIGH RISK Performed By: #### 4 1000, 08088, 93203, 25946, 97122, 33702 ####[facility] VLDL CHOL 23 mg/dL Normal 0-40 The [facility] Comment on above: Performed By: #### 4 1000, 71692, 44409, 60051, 54881, 08749 ####[facility] [place] [address], [facility] MAGNESIUM BLOODon 06-20-2017 Magnesium mass conc 1.9 mg/dL Normal 1.9-2.7 The [facility] Comment on above: Performed By: #### 4 1000, 37084, 65398, 98832, 94017, 25091 ####[facility] [place] [address], [facility] PHOSPHORUS BLOODon 8 Phosphate mass conc 3.1 mg/dL Normal 2.5-5.0 The [facility] Comment on above: Performed By: #### 4 1000, 25862, 57783, 96854, 07599, 92610 ####[facility] TACROLIMUSon 06-20-2017 Tacrolimus mass conc (Bld) 4.2 ng/mL Low 5.0-20.0 The [facility] Comment on above: Result Comment: The [employer] Tacrolimus assay is a delayed one-step immunoassayfor the quantitative determination of tacrolimus in human whole bloodusing the chemiluminescent microparticle immunoassay (CMIA) technologywith flexible assay protocols, referred to as Chemiflex. Performed By: #### 4 1000, 94179, 61350, 76848, 71175, 21355 ####[facility] URIC ACID BLOODon 06-20-2017 Urate mass conc 4.3 mg/dL Normal 2.3-6.6 The [facility] Comment on above: Performed By: #### 4 1000, 89905, 53562, 63136, 60197, 54848 ####[facility] BK VIRUS QUANTITATION PCR BL OODon 05-27-2017 BKV QUANT PCR Not detected Normal The [facility] Comment on above: Result Comment: Meth od: BK virus was measured by quantitative polymerase chain reactionusing a TaqMan probe targeting the polyomavirus BK PILOT CONTROL OPERATOR-1 gene.The lower limit of quantitation of the assay is 500 copies of BK genomeper milliliter of plasma or urine, and any detectable BK DNA below thatlevel is reported as: Detected, <500 copies/ml. Serial BK virusmeasurement can be used to monitor disease activity. (Reference:Kelsie vaughanl. J CLIN MICRO 2004; 42:9335-9645).This test was developed and its performance characteristics determinedby the [facility]. It has not been approvedby the [place] Food and Drug Administration. However, such approval is notrequired for clinical implementation, and test results have been shownto be clinically useful. This laboratory is CAP accredited and CLIAcertified to perform high complexity testing. Performed By: #### 4 1000, 24336, 63334, 66094, 90905, 46453 ####[facility] [facility].[address] LOG 10 COPIES Not detected Normal The [facility] Comment on above: Performed By: #### 4 1000, 70762, 17702, 06734, 34818, 56791 ####[place] [address] [facility].[address] CBC W/DIFFon 05-27-2017 ABS BASOPHILS 0.0 10*3/uL Normal 0.0-0.2 The [facility] Comment on above: Performed By: #### 4 1000, 09016, 24582, 11323, 50494, 50435 ####[facility] [facility].[address] ABS IMM GRANS 0.0 10*3/uL Normal 0.0-0.2 The [facility] Comment on above: Performed By: #### 4 1000, 97177, 90000, 63769, 68055, 82088 ####[place] [address] [facility].[address] ABS NEUTROPHILS 4.8 10*3/uL Normal 1.6-7.6 The [facility] Comment on above: Performed By: #### 4 1000, 62279, 27055, 79407, 67915, 68517 ####[facility] [facility].[address] Basophils Auto #/vol (Bld) 0.0 % Normal 0.0-1.0 The [facility] Comment on above: Performed By: #### 4 1000, 98703, 64857, 09125, 40784, 22334 ####[facility] Eosinophils Auto #/vol (Bld) 0.1 10*3/uL Normal 0.0-0.5 The [facility] Comment on above: Performed By: #### 4 1000, 42122, 69319, 26446, 97360, 23806 ####[facility] Eosinophils/100 WBC Auto (Bld) 1.1 % Normal 0.0-6.0 The [facility] Comment on above: Performed By: #### 4 1000, 20407, 69204, 28771, 40392, 04459 ####[facility] [facility].[address] Erythrocyte distribution width Auto Ratio (RBC) 13.5 % Normal 11.5-15.0 The [facility] Comment on above: Performed By: #### 4 1000, 07479, 94190, 01365, 27157, 34232 ####[facility] [facility].[address] Hematocrit Auto Volume Fraction (Bld) 46.1 % High 36.0-45.0 The [facility] Comment on above: Performed By: #### 4 1000, 76422, 50132, 99532, 58516, 81745 ####[facility] [facility].[address] Hemoglobin mass conc (Bld) 15.0 g/dL Normal 12.0-15.0 The [facility] Comment on above: Performed By: #### 4 1000, 70137, 82285, 73792, 23594, 23737 ####[facility] [facility].[address] IMMATURE GRANS 0.3 % Normal 0.0-1.0 The [facility] Comment on above: Performed By: #### 4 1000, 66833, 17208, 58516, 74003, 94515 ####[facility] [facility].[address] Lymphocytes Auto #/vol (Bld) 1.0 10*3/uL Low 1.2-4.0 The [facility] Comment on above: Performed By: #### 4 1000, 45516, 31710, 36283, 08639, 71737 ####[facility] [facility].[address] Lymphocytes/100 WBC Auto (Bld) 15.7 % Low 20.0-45.0 The [facility] Comment on above: Performed By: #### 4 1000, 65154, 41456, 69049, 66591, 70320 ####[facility] [facility].[address] MCH Auto Entitic mass (RBC) 28.8 pg Normal 27.0-33.0 The [facility] Comment on above: Performed By: #### 4 1000, 56438, 53276, 08576, 83252, 83401 ####[facility] [facility].[address] MCHC Auto mass conc (RBC) 32.5 g/dL Normal 32.0-35.0 The [facility] Comment on above: Performed By: #### 4 1000, 51785, 65964, 95067, 40265, 86210 ####[facility] [facility].[address] MCV Auto Entitic volume (RBC) 88.7 fL Normal 82.0-98.0 The [facility] Comment on above: Performed By: #### 4 1000, 30559, 40203, 07965, 56185, 78737 ####[facility] [facility].[address] Monocytes Auto #/vol (Bld) 0.8 10*3/uL Normal 0.1-1.0 [facility] Comment on above: Performed By: #### 4 1000, 07600, 60061, 00433, 08796, 75658 ####[facility] [place] [address], [facility] MONOS 11.4 % Normal 5.0-12.0 The [facility] Comment on above: Performed By: #### 4 1000, 73679, 35481, 36761, 61207, 14532 ####[facility] Neutrophils/100 WBC Auto (Bld) 71.5 % Normal 40.0-72.0 [facility] Comment on above: Performed By: #### 4 1000, 38058, 59662, 37419, 75961, 43500 ####[facility] Nucleated RBC/100 WBC Ratio (Bld) 0 % Normal 0-0 The [facility] Comment on above: Performed By: #### 4 1000, 11232, 02322, 82546, 55156, 02728 ####[facility] PLAT CNT 199 10*3/uL Normal 150-400 The [facility] Comment on above: Performed By: #### 4 1000, 14582, 94261, 74383, 62575, 85206 ####[facility] RBC Auto #/vol (Bld) 5.20 10*6/uL High 3.80-5.00 Th e [facility] Comment on above: Performed By: #### 4 1000, 96120, 16998, 91741, 42809, 58562 ####[facility] WBC Auto #/vol (Bld) 6.6 10*3/uL Normal 4.0-10.6 The [facility] Comment on above: Performed By: #### 4 1000, 39832, 97525, 20890, 91594, 27125 ####[facility] COMP METABOLIC PANELon 05-27 Albumin mass conc 4.6 g/dL Normal 3.5-5.7 The [facility] Comment on above: Performed By: #### 4 1000, 10757, 74516, 42817, 05967, 64574 ####[facility] ALKALINE PHOSPH 105 IU/L High 34-104 The [facility] Comment on above: Performed By: #### 4 1000, 54711, 21763, 57091, 74303, 90997 ####[facility] ALT enzyme act/vol 20 U/L Normal 7-52 [facility] Comment on above: Performed By: #### 4 1000, 19838, 83560, 00688, 35213, 68675 ####[facility] AST enzyme act/vol 23 U/L Normal 13-39 [facility] Comment on above: Performed By: #### 4 1000, 74998, 95151, 22104, 76564, 98899 ####[facility] [place] [address], DR. DAN C. TRIGG [facility] Bilirubin mass conc 0.6 mg/dL Normal 0.3-1.0 The [facility] Comment on above: Performed By: #### 4 1000, 76505, 04196, 55466, 36947, 57429 ####[facility] [place] [address], [place] Calcium mass conc 9.8 mg/dL Normal 8.6-10.3 The [facility] Comment on above: Performed By: #### 4 1000, 26982, 66020, 05564, 06678, 24987 ####[facility] [place] [address], [place] Chloride molar conc 106 mmol/L Normal 98-107 The [facility] Comment on above: Performed By: #### 4 1000, 71003, 36971, 37419, 07773, 12183 ####[facility] [place] [address], [place] CO2 molar conc 30 mmol/L Normal 21-31 The [facility] Comment on above: Performed By: #### 4 1000, 00431, 76488, 43860, 59887, 93510 ####[facility] [place] [address], [place] Creatinine mass conc 0.80 mg/dL Normal 0.60-1.20 [facility] Comment on above: Performed By: #### 4 1000, 31252, 97237, 33287, 81482, 43035 ####[facility] [place] [address], [place] GFR/1.73 sq M predicted among blacks MDRD vol rate/area (S/P/Bld) mL/min/{1.73_m2} Normal >60 The [facility] Comment on above: Performed By: #### 4 1000, 77714, 17596, 30261, 36851, 33920 ####[facility] [place] [address], [place] GFR/1.73 sq M predicted among non-blacks MDRD vol rate/area (S/P/Bld) mL/min/{1.73_m2} Normal >60 The [facility] Comment on above: Performed By: #### 4 1000, 99279, 49421, 20471, 18087, 06966 ####[facility] [place] [address], [facility] Glucose mass conc 90 mg/dL Normal 70-100 The [facility] Comment on above: Performed By: #### 4 1000, 38763, 37539, 38704, 17871, 85169 ####[facility] [place] [address], [facility] Potassium molar conc 4.0 mmol/L Normal 3.5-5.1 The [facility] Comment on above: Performed By: #### 4 1000, 49296, 87626, 97995, 64435, 89985 ####[facility] [id number], [facility] Protein mass conc 6.8 g/dL Normal 6.0-8.3 The [facility] Comment on above: Performed By: #### 4 1000, 59681, 71725, 22846, 28955, 78242 ####[facility] [place] [address], [facility] Sodium molar conc 138 mmol/L Normal 136-145 The [facility] Comment on above: Performed By: #### 4 1000, 20772, 16787, 89939, 78088, 39822 ####[facility] [place] [address], [facility] Urea nitrogen mass conc 14 mg/dL Normal 7-25 The [facility] Comment on above: Performed By: #### 4 1000, 12142, 91139, 81081, 48397, 77001 ####[facility] [place] [address], [facility] DIRECT BILIon 05-27-2017 Bilirubin.direct mass conc 0.1 mg/dL Normal 0.0-0.2 The [facility] Comment on above: Performed By: #### 4 1000, 48941, 35716, 33800, 81344, 37383 ####[facility] [facility].[address] EVEROLIMUS [id number] 8 EVEROLIMUS 5.6 ng/mL Normal [facility] Comment on above: Result [...] the transplantcenter.Test developed and characteristics determined by [employer]. See Compliance Statement B: Continuing Education Records & Resources/CSPerformed by [employer],[address] [place] [id number] ggn.Continuing Education Records & Resources, Leonid Antonio MD - Lab. Director HEMOGLOBIN A1Con 05-27-2017 Glucose mass conc 108 mg/dL Normal 70-126 [facility] Comment on above: Performed By: #### 4 1000, 55467, 77342, 34875, 74600, 04603 ####[facility] [facility] [place] [address], [facility] Hemoglobin A1c/Hemoglobin.total mass fraction (Bld) 5.4 % Normal 4.0-6.0 The [facility] Comment on above: Performed By: #### 4 1000, 01861, 27162, 09861, 21132, 49182 ####[facility] [place] [address], [facility] LIPID PROFILEon 05-27-2017 Cholesterol in HDL mass conc 39 mg/dL Normal 23-92 The [facility] Comment on above: Result Comment: Slig ht variation in normal range could be due to gender and/or age.HDL CHOLESTEROL REFERENCE RANGE:20 years and older Cardiovascular Risk> or =60 mg/dL Obzeiipkg46 TO 59 mg/dL Low Risk<40 mg/dL High Risk Performed By: #### 4 1000, 76785, 34285, 49680, 39748, 90883 ####[facility] [place] [address], [facility] Cholesterol in LDL mass conc 52 mg/dL Normal 0-130 The [facility] Comment on above: Result Comment: LDL IS A CALCULATIONLDL IS ONLY VALID IF THE TRIG IS LESS THAN 400. Performed By: #### 4 1000, 31306, 11896, 60502, 00616, 83972 ####[facility] [place] [address], [facility] Cholesterol mass conc 117 mg/dL Low 120-200 The [facility] Comment on above: Result Comment: CHOL ESTEROL REFERENCE RANGE:20 YEARS AND OLDER CARDIOVASCULAR RISKLess than 200 mg/dl Low Acye831 to 239 mg/dl Borderline Gvkt535 mg/dl and greater High Risk Performed By: #### 4 1000, 48113, 42465, 61371, 05695, 47007 ####[facility] [place] [address], [facility] Cholesterol.total/Cho lesterol in HDL mass ratio 3.0 {ratio} Normal .0-4.5 The [facility] Comment on above: Performed By: #### 4 1000, 38095, 94678, 27376, 04876, 46830 ####[facility] [place] [address], [place] NON-HDL CHOLESTEROL 78 mg/dL Normal The [facility] Comment on above: Performed By: #### 4 1000, 75843, 79492, 23576, 35741, 91078 ####[facility] Triglyceride mass conc 131 mg/dL Normal 40-149 The [facility] Comment on above: Result Comment: TRIG LYCERIDE REFERENCE RANGE:20 YEARS AND OLDER CARDIOVASCULAR RISKLESS THAN 150 mg/dl LOW RUCR602 TO 199 mg/dl BORDERLINE KZGI140 mg/dl AND GREATER HIGH RISK Performed By: #### 4 1000, 71505, 35635, 06847, 16955, 78423 ####[facility] VLDL CHOL 26 mg/dL Normal 0-40 The [facility] Comment on above: Performed By: #### 4 1000, 18550, 98323, 89782, 00701, 77730 ####[facility] MAGNESIUM BLOODon 05-27-2017 Magnesium mass conc 2.1 mg/dL Normal 1.9-2.7 The [facility] Comment on above: Performed By: #### 4 1000, 97465, 20936, 74817, 87398, 72655 ####[facility] PHOSPHORUS BLOODon 8 Phosphate mass conc 3.5 mg/dL Normal 2.5-5.0 The [facility] Comment on above: Performed By: #### 4 1000, 24830, 98120, 55229, 81965, 21227 ####[facility] TACROLIMUSon 05-27-2017 Tacrolimus mass conc (Bld) 4.4 ng/mL Low 5.0-20.0 The [facility] Comment on above: Result Comment: The [employer] Tacrolimus assay is a delayed one-step immunoassayfor the quantitative determination of tacrolimus in human whole bloodusing the chemiluminescent microparticle immunoassay (CMIA) technologywith flexible assay protocols, referred to as Chemiflex. Performed By: #### 4 1000, 87025, 44240, 00420, 45197, 26069 ####[facility] [facility].[address] URIC ACID BLOODon 05-27-2017 Urate mass conc 4.6 mg/dL Normal 2.3-6.6 The [facility] Comment on above: Performed By: #### 4 1000, 74774, 20959, 38486, 35477, 85624 ####[facility] [facility].[address] CBC W/DIFFon 04-29-2017 ABS BASOPHILS 0.0 10*3/uL Normal 0.0-0.2 The [facility] Comment on above: Performed By: #### 4 1000, 23913, 94800, 29902, 68197, 14412 ####[facility] [facility].[address] ABS IMM GRANS 0.0 10*3/uL Normal 0.0-0.2 The [facility] Comment on above: Performed By: #### 4 1000, 92791, 09622, 45108, 93453, 40733 ####[facility] [facility].[address] ABS NEUTROPHILS 4.6 10*3/uL Normal 1.6-7.6 The [facility] Comment on above: Performed By: #### 4 1000, 35072, 89058, 56791, 42365, 50967 ####[facility] [facility].[address] Basophils Auto #/vol (Bld) 0.3 % Normal 0.0-1.0 The [facility] Comment on above: Performed By: #### 4 1000, 85007, 33770, 57346, 03457, 67842 ####[facility] Eosinophils Auto #/vol (Bld) 0.1 10*3/uL Normal 0.0-0.5 The [facility] Comment on above: Performed By: #### 4 1000, 18737, 60970, 96840, 95033, 27215 ####[address] Eosinophils/100 WBC Auto (Bld) 1.7 % Normal 0.0-6.0 The [facility] Comment on above: Performed By: #### 4 1000, 05190, 77363, 26637, 10087, 62207 ####[address] Erythrocyte distribution width Auto Ratio (RBC) 13.7 % Normal 11.5-15.0 The [facility] Comment on above: Performed By: #### 4 1000, 15281, 37962, 57276, 73686, 88514 ####[place] [address] [facility].[address] Hematocrit Auto Volume Fraction (Bld) 45.0 % Normal 36.0-45.0 The [facility] Comment on above: Performed By: #### 4 1000, 75714, 22929, 40691, 21519, 65940 ####[place] [address] [facility].[address] Hemoglobin mass conc (Bld) 14.9 g/dL Normal 12.0-15.0 The [facility] Comment on above: Performed By: #### 4 1000, 13941, 02970, 57530, 73885, 60156 ####[facility] IMMATURE GRANS 0.3 % Normal 0.0-1.0 The [facility] Comment on above: Performed By: #### 4 1000, 93579, 67387, 95998, 12780, 32380 ####[facility] [facility].[address] Lymphocytes Auto #/vol (Bld) 0.9 10*3/uL Low 1.2-4.0 The [facility] Comment on above: Performed By: #### 4 1000, 38310, 64355, 98123, 84993, 99433 ####[facility] [facility].[address] Lymphocytes/100 WBC Auto (Bld) 14.2 % Low 20.0-45.0 The [facility] Comment on above: Performed By: #### 4 1000, 07651, 57622, 95230, 73395, 63031 ####[facility] [facility].[address] MCH Auto Entitic mass (RBC) 29.4 pg Normal 27.0-33.0 The [facility] Comment on above: Performed By: #### 4 1000, 63765, 76866, 50157, 14390, 30021 ####[facility] [facility].[address] MCHC Auto mass conc (RBC) 33.1 g/dL Normal 32.0-35.0 The [facility] Comment on above: Performed By: #### 4 1000, 54056, 80788, 10648, 69866, 24063 ####[facility] [facility].[address] MCV Auto Entitic volume (RBC) 88.8 fL Normal 82.0-98.0 The [facility] Comment on above: Performed By: #### 4 1000, 23478, 07932, 96560, 03581, 05914 ####[facility] [facility].[address] Monocytes Auto #/vol (Bld) 0.8 10*3/uL Normal 0.1-1.0 The [facility] Comment on above: Performed By: #### 4 1000, 75171, 31973, 45836, 09765, 79301 ####[facility] [facility] [place] [place] [address], [facility] MONOS 12.2 % High 5.0-12.0 The [facility] Comment on above: Performed By: #### 4 1000, 75990, 21671, 27304, 88266, 63208 ####[facility] [facility].[address] Neutrophils/100 WBC Auto (Bld) 71.3 % Normal 40.0-72.0 The [facility] Comment on above: Performed By: #### 4 1000, 45177, 87868, 02306, 40995, 99122 ####[facility] [facility].[address] Nucleated RBC/100 WBC Ratio (Bld) 0 % Normal 0-0 The [facility] Comment on above: Performed By: #### 4 1000, 73402, 40399, 83938, 83152, 68226 ####[facility] [facility].[address] PLAT CNT 215 10*3/uL Normal 150-400 The [facility] Comment on above: Performed By: #### 4 1000, 71196, 88792, 82515, 99393, 86291 ####[facility] [facility].[address] RBC Auto #/vol (Bld) 5.07 10*6/uL High 3.80-5.00 Th e [facility] Comment on above: Performed By: #### 4 1000, 28840, 54077, 79619, 68593, 45758 ####[facility] [facility].[address] WBC Auto #/vol (Bld) 6.5 10*3/uL Normal 4.0-10.6 The [facility] Comment on above: Performed By: #### 4 1000, 35766, 95211, 32205, 95713, 66297 ####[facility] COMP METABOLIC PANELon 04-29 Albumin mass conc 4.4 g/dL Normal 3.5-5.7 The [facility] Comment on above: Performed By: #### 4 1000, 87646, 23019, 74170, 47005, 35276 ####[facility] ALKALINE PHOSPH 114 IU/L High 34-104 The [facility] Comment on above: Performed By: #### 4 1000, 10230, 53199, 02087, 48932, 15160 ####[facility] ALT enzyme act/vol 15 U/L Normal 7-52 The [facility] Comment on above: Performed By: #### 4 1000, 81655, 86572, 83416, 25220, 29164 ####[facility] AST enzyme act/vol 19 U/L Normal 13-39 The [facility] Comment on above: Performed By: #### 4 1000, 42258, 48485, 59485, 34535, 21087 ####[facility] [place] [address], [facility] Bilirubin mass conc 0.7 mg/dL Normal 0.3-1.0 The [facility] Comment on above: Performed By: #### 4 1000, 59924, 72830, 29464, 87415, 97670 ####[facility] [place] [address], [facility] Calcium mass conc 9.6 mg/dL Normal 8.6-10.3 The [facility] Comment on above: Performed By: #### 4 1000, 79758, 15061, 92937, 67544, 82444 ####[facility] [place] [address], [facility] Chloride molar conc 103 mmol/L Normal 98-107 The [facility] Comment on above: Performed By: #### 4 1000, 63122, 92073, 98665, 55761, 44851 ####[facility] [place] [address], [place] CO2 molar conc 29 mmol/L Normal 21-31 The [facility] Comment on above: Performed By: #### 4 1000, 18978, 04666, 81209, 37179, 33546 ####[facility] [place] [address], [place] Creatinine mass conc 0.79 mg/dL Normal 0.60-1.20 [facility] Comment on above: Performed By: #### 4 1000, 48898, 13730, 01854, 53133, 45260 ####[facility] [place] [address], [place] GFR/1.73 sq M predicted among blacks MDRD vol rate/area (S/P/Bld) mL/min/{1.73_m2} Normal >60 The [facility] Comment on above: Performed By: #### 4 1000, 96141, 79672, 93336, 48994, 20823 ####[facility] [place] [address], [place] GFR/1.73 sq M predicted among non-blacks MDRD vol rate/area (S/P/Bld) mL/min/{1.73_m2} Normal >60 The [facility] Comment on above: Performed By: #### 4 1000, 83849, 06487, 60710, 04769, 01304 ####[facility] [place] [address], [facility] Glucose mass conc 90 mg/dL Normal 70-100 The [facility] Comment on above: Performed By: #### 4 1000, 65203, 05034, 28476, 70548, 32265 ####[facility] [place] [address], [facility] Potassium molar conc 3.8 mmol/L Normal 3.5-5.1 The [facility] Comment on above: Performed By: #### 4 1000, 70161, 58900, 87104, 50249, 00807 ####[facility] [facility] [place] [address], [facility] Protein mass conc 7.2 g/dL Normal 6.0-8.3 The [facility] Comment on above: Performed By: #### 4 1000, 91537, 99218, 63549, 02049, 08507 ####[facility] [facility] [place] [address], [facility] Sodium molar conc 140 mmol/L Normal 136-145 The [facility] Comment on above: Performed By: #### 4 1000, 56118, 89854, 16168, 87661, 83164 ####[facility] [facility] [place] [address], [facility] Urea nitrogen mass conc 15 mg/dL Normal 7-25 The [facility] Comment on above: Performed By: #### 4 1000, 70686, 76758, 60323, 04137, 71095 ####[facility] [place] [address], [facility] DIRECT BILIon 04-29-2017 Bilirubin.direct mass conc 0.1 mg/dL Normal 0.0-0.2 The [facility] Comment on above: Order Comment: Liver Battery conflicts with Comprehensive Metabolic Panel. Liver Battery canceled and Direct Bilirubin added. Performed By: #### 4 1000, 25321, 22008, 28095, 80570, 81342 ####[facility] [place] [address], [facility] EVEROLIMUS [id number] 8 EVEROLIMUS 5.4 ng/mL Normal [facility] Comment on above: Result [...] the transplantcenter.Test developed and characteristics determined by [employer]. See Compliance Statement B: Continuing Education Records & Resources/CSPerformed by [employer],[address] [place] [id number] cno.[employer] Records [employer], Leonid Antonio MD - Lab. Director LIPID PROFILEon 04-29-2017 Cholesterol in HDL mass conc 49 mg/dL Normal 23-92 [facility] Comment on above: Result Comment: Slig ht variation in normal range could be due to gender and/or age.HDL CHOLESTEROL REFERENCE RANGE:20 years and older Cardiovascular Risk> or =60 mg/dL Wecxpkgmr24 TO 59 mg/dL Low Risk<40 mg/dL High Risk Performed By: #### 4 1000, 18957, 83715, 81408, 91586, 40454 ####[facility] [address], [facility] Cholesterol in LDL mass conc 52 mg/dL Normal 0-130 The [facility] Comment on above: Result Comment: LDL IS A CALCULATIONLDL IS ONLY VALID IF THE TRIG IS LESS THAN 400. Performed By: #### 4 1000, 22703, 18415, 63697, 56493, 57770 ####[facility] [place] [address], [facility] Cholesterol mass conc 122 mg/dL Normal 120-200 The [facility] Comment on above: Result Comment: CHOL ESTEROL REFERENCE RANGE:20 YEARS AND OLDER CARDIOVASCULAR RISKLess than 200 mg/dl Low Gaww788 to 239 mg/dl Borderline Flri544 mg/dl and greater High Risk Performed By: #### 4 1000, 89382, 24705, 14742, 39412, 35787 ####[facility] [place] [address], [facility] Cholesterol.total/Cho lesterol in HDL mass ratio 2.5 {ratio} Normal .0-4.5 The [facility] Comment on above: Performed By: #### 4 1000, 20815, 60236, 07554, 63065, 67894 ####[facility] [place] [address], [facility] NON-HDL CHOLESTEROL 73 mg/dL Normal The [facility] Comment on above: Performed By: #### 4 1000, 86447, 11195, 31546, 12427, 77213 ####[facility] [place] [address], [facility] Triglyceride mass conc 106 mg/dL Normal 40-149 The [facility] Comment on above: Result Comment: TRIG LYCERIDE REFERENCE RANGE:20 YEARS AND OLDER CARDIOVASCULAR RISKLESS THAN 150 mg/dl LOW [id number] TO 199 mg/dl BORDERLINE [id number] mg/dl AND GREATER HIGH RISK Performed By: #### 4 1000, 48714, 98688, 38081, 41996, 84530 ####[facility] [place] [address], [facility] VLDL CHOL 21 mg/dL Normal 0-40 The [facility] Comment on above: Performed By: #### 4 1000, 33045, 04109, 01607, 74961, 18394 ####[facility] [facility].[address] MAGNESIUM BLOODon 04-29-2017 Magnesium mass conc 2.1 mg/dL Normal 1.9-2.7 The [facility] Comment on above: Performed By: #### 4 1000, 67057, 16142, 03737, 60342, 33117 ####[facility] [facility].[address] PHOSPHORUS BLOODon 8 Phosphate mass conc 3.3 mg/dL Normal 2.5-5.0 The [facility] Comment on above: Performed By: #### 4 1000, 54519, 85181, 94861, 69178, 38176 ####[facility] [facility].[address] TACROLIMUSon 04-29-2017 Tacrolimus mass conc (Bld) 4.6 ng/mL Low 5.0-20.0 The [facility] Comment on above: Result Comment: The [employer] Tacrolimus assay is a delayed one-step immunoassayfor the quantitative determination of tacrolimus in human whole bloodusing the chemiluminescent microparticle immunoassay (CMIA) technologywith flexible assay protocols, referred to as Chemiflex. Performed By: #### 4 1000, 31530, 70165, 31169, 22127, 78957 ####[facility] [facility].[address] URIC ACID BLOODon 04-29-2017 Urate mass conc 4.6 mg/dL Normal 2.3-6.6 The [facility] Comment on above: Performed By: #### 4 1000, 46687, 64231, 35429, 85980, 72882 ####[facility] [facility].[address] CBC W/DIFFon 03-27-2017 Basophils Auto #/vol (Bld) 0.2 % Normal 0.0-2.0 The [facility] Comment on above: Performed By: #### 4 1000, 94235, 61284, 06898, 53505, 40239 ####[facility] [place] [address], [facility] Eosinophils/100 WBC Auto (Bld) 1.8 % Normal 0.0-5.0 The [facility] Comment on above: Performed By: #### 4 1000, 80555, 24922, 86215, 07426, 25324 ####[facility] Erythrocyte distribution width Auto Ratio (RBC) 13.6 % Normal 11.5-16.9 The [facility] Comment on above: Performed By: #### 4 1000, 84919, 12388, 82390, 87066, 51987 ####[facility] Hematocrit Auto Volume Fraction (Bld) 47.6 % Normal 36.0-48.0 The [facility] Comment on above: Performed By: #### 4 1000, 98835, 40516, 47496, 18154, 93325 ####[facility] Hemoglobin mass conc (Bld) 15.8 g/dL High 12.0-15.0 [facility] Comment on above: Performed By: #### 4 1000, 61576, 88328, 83190, 32739, 17995 ####[facility] [place] [address], [facility] Lymphocytes/100 WBC Auto (Bld) 14.5 % Low 20.0-40.0 [facility] Comment on above: Performed By: #### 4 1000, 53285, 00093, 21967, 69710, 24371 ####[facility] MCH Auto Entitic mass (RBC) 29.0 pg Normal 24.0-32.0 [facility] Comment on above: Performed By: #### 4 1000, 54787, 60425, 94334, 80393, 82662 ####[facility] MCHC Auto mass conc (RBC) 33.3 g/dL Normal 32.0-36.0 [facility] Comment on above: Performed By: #### 4 1000, 39979, 31732, 10651, 09281, 12419 ####[facility] MCV Auto Entitic volume (RBC) 87.4 fL Normal 80.0-100.0 [facility] Comment on above: Performed By: #### 4 1000, 13809, 67505, 78856, 40937, 33605 ####[facility] METHOD Normal RBC Morphology Normal [facility] Comment on above: Performed By: #### 4 1000, 53792, 43969, 70378, 34222, 52187 ####[facility] MONOS 9.6 % High 2-8 [facility] Comment on above: Performed By: #### 4 1000, 51938, 31206, 53473, 50292, 44082 ####[facility] Neutrophils/100 WBC Auto (Bld) 73.9 % High 50-70 [facility] Comment on above: Performed By: #### 4 1000, 09878, 73626, 56733, 34637, 64819 ####[facility] [place] [address], [place] PLAT CNT 228 Thou/mm3 Normal 100-400 The [facility] Comment on above: Performed By: #### 4 1000, 71411, 28360, 65602, 88476, 58380 ####[facility] RBC Auto #/vol (Bld) 5.45 mill/mm3 Normal 3.50-5.50 T he [facility] Comment on above: Performed By: #### 4 1000, 87273, 78396, 17924, 59020, 85940 ####[facility] WBC Auto #/vol (Bld) 6.5 Thou/mm3 Normal 4.0-10.0 Th e [facility] Comment on above: Performed By: #### 4 1000, 30057, 82298, 44138, 20543, 90948 ####[facility] COMP METABOLIC PANELon 03-27 Albumin mass conc 4.7 g/dL Normal 3.5-5.7 The [facility] Comment on above: Performed By: #### 4 1000, 80296, 81393, 80015, 62061, 97979 ####[facility] ALKALINE PHOSPH 99 IU/L Normal 34-104 The [facility] Comment on above: Performed By: #### 4 1000, 17329, 77949, 22271, 91003, 98694 ####[facility] ALT enzyme act/vol 19 U/L Normal 7-52 The [facility] Comment on above: Performed By: #### 4 1000, 63105, 91623, 17216, 05499, 29234 ####[facility] [place] [address], [facility] AST enzyme act/vol 21 U/L Normal 13-39 The [facility] Comment on above: Performed By: #### 4 1000, 12538, 41732, 43198, 81116, 95945 ####[facility] [place] [address], [place] Bilirubin mass conc 0.6 mg/dL Normal 0.3-1.0 The [facility] Comment on above: Performed By: #### 4 1000, 19096, 68804, 98922, 80303, 35145 ####[facility] [place] [address], [facility] Calcium mass conc 10.2 mg/dL Normal 8.6-10.3 [facility] Comment on above: Performed By: #### 4 1000, 17228, 43600, 58737, 34342, 89302 ####[facility] [place] [address], [place] Chloride molar conc 104 mmol/L Normal 98-107 The [facility] Comment on above: Performed By: #### 4 1000, 33331, 64921, 07928, 93014, 54500 ####[facility] [place] [address], [place] CO2 molar conc 28 mmol/L Normal 21-31 The [facility] Comment on above: Performed By: #### 4 1000, 12386, 82784, 03109, 62990, 18696 ####[facility] [place] [address], [place] Creatinine mass conc 0.78 mg/dL Normal 0.60-1.20 [facility] Comment on above: Performed By: #### 4 1000, 37271, 47679, 53352, 17105, 90451 ####[facility] [place] [address], [place] GFR/1.73 sq M predicted among blacks MDRD vol rate/area (S/P/Bld) mL/min/{1.73_m2} Normal >60 The [facility] Comment on above: Performed By: #### 4 1000, 81454, 53913, 83114, 25238, 03002 ####[facility] [place] [address], [facility] GFR/1.73 sq M predicted among non-blacks MDRD vol rate/area (S/P/Bld) mL/min/{1.73_m2} Normal >60 The [facility] Comment on above: Performed By: #### 4 1000, 29648, 55560, 09310, 56779, 28677 ####[facility] [place] [address], [facility] Glucose mass conc 87 mg/dL Normal 70-100 The [facility] Comment on above: Performed By: #### 4 1000, 77691, 98157, 87000, 29342, 75856 ####[facility] [place] [address], [facility] Potassium molar conc 4.1 mmol/L Normal 3.5-5.1 [facility] Comment on above: Performed By: #### 4 1000, 16242, 83523, 60933, 76000, 84223 ####[facility] [place] [address], [place] Protein mass conc 7.8 g/dL Normal 6.0-8.3 The [facility] Comment on above: Performed By: #### 4 1000, 75792, 64688, 33325, 61572, 17236 ####[facility] [place] [address], [place] Sodium molar conc 139 mmol/L Normal 136-145 The [facility] Comment on above: Performed By: #### 4 1000, 81774, 32073, 13060, 19234, 16065 ####[facility] [place] [address], [facility] Urea nitrogen mass conc 19 mg/dL Normal 7-25 [facility] Comment on above: Performed By: #### 4 1000, 66561, 29685, 97623, 45324, 54663 ####[facility] DIRECT BILIon 03-27-2017 Bilirubin.direct mass conc 0.1 mg/dL Normal 0.0-0.2 [facility] Comment on above: Performed By: #### 4 1000, 93250, 99512, 69514, 19091, 23786 ####[facility] EVEROLIMUS 60179km 7 EVEROLIMUS 5.3 ng/mL Normal The [facility] Comment on above: Result Comment: Ther [...] the transplantcenter.Test developed and characteristics determined by [employer]. See Compliance Statement B: [email or web address] by [employer],[address] [place] [address] bos.Continuing [employer] Records [employer] Resources, Leonid Antonio MD - Lab. Director LIPID PROFILEon 03-27-2017 Cholesterol in HDL mass conc 50 mg/dL Normal 23-92 [facility] Comment on above: Result Comment: Slig ht variation in normal range could be due to gender and/or age.HDL CHOLESTEROL REFERENCE RANGE:20 years and older Cardiovascular Risk> or =60 mg/dL Qanzftauq63 TO 59 mg/dL Low Risk<40 mg/dL High Risk Performed By: #### 4 1000, 22377, 63406, 09017, 78048, 77296 ####[facility] [place] [address], [facility] Cholesterol in LDL mass conc 66 mg/dL Normal 0-130 [facility] Comment on above: Result Comment: LDL IS A CALCULATIONLDL IS ONLY VALID IF THE TRIG IS LESS THAN 400. Performed By: #### 4 1000, 89518, 15282, 15982, 82270, 40950 ####[facility] [place] [address], [facility] Cholesterol mass conc 147 mg/dL Normal 120-200 [facility] Comment on above: Result Comment: CHOL ESTEROL REFERENCE RANGE:20 YEARS AND OLDER CARDIOVASCULAR RISKLess than 200 mg/dl Low Kqfn609 to 239 mg/dl Borderline Ydte304 mg/dl and greater High Risk Performed By: #### 4 1000, 32518, 99895, 64418, 39576, 62718 ####[facility] [place] [address], [facility] Cholesterol.total/Cho lesterol in HDL mass ratio 2.9 {ratio} Normal .0-4.5 [facility] Comment on above: Performed By: #### 4 1000, 62440, 03162, 35538, 64413, 58378 ####[facility] [place] [address], [place] NON-HDL CHOLESTEROL 97 mg/dL Normal The [facility] Comment on above: Performed By: #### 4 1000, 30967, 96709, 88686, 55584, 44001 ####[facility] Triglyceride mass conc 157 mg/dL High 40-149 [facility] Comment on above: Result Comment: TRIG LYCERIDE REFERENCE RANGE:20 YEARS AND OLDER CARDIOVASCULAR RISKLESS THAN 150 mg/dl LOW [id number] TO 199 mg/dl BORDERLINE [id number] mg/dl AND GREATER HIGH RISK Performed By: #### 4 1000, 36411, 06769, 94057, 14267, 17664 ####[facility] VLDL CHOL 31 mg/dL Normal 0-40 [facility] Comment on above: Performed By: #### 4 1000, 92254, 06705, 76913, 07651, 47750 ####[facility] MAGNESIUM BLOODon 03-27-2017 Magnesium mass conc 1.9 mg/dL Normal 1.9-2.7 The [facility] Comment on above: Performed By: #### 4 1000, 10477, 79320, 03445, 62437, 94647 ####[facility] PHOSPHORUS BLOODon 7 Phosphate mass conc 3.4 mg/dL Normal 2.5-5.0 The [facility] Comment on above: Performed By: #### 4 1000, 43167, 37270, 56127, 88636, 91880 ####[facility] TACROLIMUSon 03-27-2017 Tacrolimus mass conc (Bld) 3.7 ng/mL Low 5.0-20.0 The [facility] Comment on above: Result Comment: The [employer] Tacrolimus assay is a delayed one-step immunoassayfor the quantitative determination of tacrolimus in human whole bloodusing the chemiluminescent microparticle immunoassay (CMIA) technologywith flexible assay protocols, referred to as Chemiflex. Performed By: #### 4 1000, 91273, 50599, 35839, 53263, 28980 ####[facility] [facility] [place] [place] [address], [facility] URIC ACID BLOODon 03-27-2017 Urate mass conc 4.1 mg/dL Normal 2.3-6.6 The [facility] Comment on above: Performed By: #### 4 1000, 22704, 36064, 99181, 13061, 73221 ####[facility] [facility].[address] BK VIRUS QUANTITATION PCR BL OODon 02-26-2017 BKV QUANT PCR Not detected Normal The [facility] Comment on above: Result Comment: Meth od: BK virus was measured by quantitative polymerase chain reactionusing a TaqMan probe targeting the polyomavirus BK PILOT CONTROL OPERATOR-1 gene.The lower limit of quantitation of the assay is 500 copies of BK genomeper milliliter of plasma or urine, and any detectable BK DNA below thatlevel is reported as: Detected, <500 copies/ml. Serial BK virusmeasurement can be used to monitor disease activity. (Reference:Kelsie vaughanl. J CLIN MICRO 2004; 42:1658-3434).This test was developed and its performance characteristics determinedby the [facility]. It has not been approvedby the US Food and Drug Administration. However, such approval is notrequired for clinical implementation, and test results have been shownto be clinically useful. This laboratory is CAP accredited and CLIAcertified to perform high complexity testing. Performed By: #### 4 1000, 82907, 34226, 51405, 16812, 88729 ####[facility] [facility] [place] [address], [facility] LOG 10 COPIES Not detected Normal The [facility] Comment on above: Performed By: #### 4 1000, 25226, 66749, 13275, 37558, 99801 ####[facility] [facility] [place] [place] [address], [facility] CBC W/DIFFon 02-26-2017 Basophils Auto #/vol (Bld) 0.3 % Normal 0.0-2.0 [facility] Comment on above: Performed By: #### 5 0103 ####[facility] [place] [address], [facility] Eosinophils/100 WBC Auto (Bld) 2.2 % Normal 0.0-5.0 The [facility] Comment on above: Performed By: #### 5 0103 ####[facility] Erythrocyte distribution width Auto Ratio (RBC) 13.8 % Normal 11.5-16.9 [facility] Comment on above: Performed By: #### 5 0103 ####[facility] [facility].[address] Hematocrit Auto Volume Fraction (Bld) 44.9 % Normal 36.0-48.0 The [facility] Comment on above: Performed By: #### 3 ####[facility] [facility].[address] Hemoglobin mass conc (Bld) 15.0 g/dL Normal 12.0-15.0 [facility] Comment on above: Performed By: #### 5 0103 ####[facility] [facility] [place] [address], [facility] Lymphocytes/100 WBC Auto (Bld) 18.9 % Low 20.0-40.0 [facility] Comment on above: Performed By: #### 5 0103 ####[facility] [facility] [place] [place] [address], [facility] MCH Auto Entitic mass (RBC) 28.9 pg Normal 24.0-32.0 The [facility] Comment on above: Performed By: #### 5 3 ####[facility] MCHC Auto mass conc (RBC) 33.4 g/dL Normal 32.0-36.0 [facility] Comment on above: Performed By: #### 5 102 ####[facility] MCV Auto Entitic volume (RBC) 86.6 fL Normal 80.0-100.0 [facility] Comment on above: Performed By: #### 5 3 ####[facility] [facility].[address] METHOD Normal RBC Morphology Normal [facility] Comment on above: Performed By: #### 5 102 ####[facility] [facility].[address] MONOS 11.7 % High 2-8 [facility] Comment on above: Performed By: #### 5 102 ####[facility] [facility].[address] Neutrophils/100 WBC Auto (Bld) 66.9 % Normal 50-70 [facility] Comment on above: Performed By: #### 5 3 ####[facility] [facility] [place] [address], [facility] PLAT CNT 230 Thou/mm3 Normal 100-400 The [facility] Comment on above: Performed By: #### 5 102 ####[facility] [facility].[address] RBC Auto #/vol (Bld) 5.18 mill/mm3 Normal 3.50-5.50 T he [facility] Comment on above: Performed By: #### 5 102 ####[facility] [place] [address], [facility] WBC Auto #/vol (Bld) 5.8 Thou/mm3 Normal 4.0-10.0 Th e [facility] Comment on above: Performed By: #### 5 0103 ####[facility] COMP METABOLIC PANELon 02-26 Albumin mass conc 4.7 g/dL Normal 3.5-5.7 The [facility] Comment on above: Performed By: #### 4 1000, 01564, 25732, 99129, 87378, 52045 ####[facility] ALKALINE PHOSPH 115 IU/L High 34-104 The [facility] Comment on above: Performed By: #### 4 1000, 54327, 04679, 30764, 35432, 56917 ####[facility] ALT enzyme act/vol 18 U/L Normal 7-52 The [facility] Comment on above: Performed By: #### 4 1000, 98910, 93484, 06304, 19741, 82886 ####[facility] AST enzyme act/vol 22 U/L Normal 13-39 The [facility] Comment on above: Performed By: #### 4 1000, 22123, 96061, 14712, 31332, 26227 ####[facility] [place] [address], [facility] Bilirubin mass conc 0.6 mg/dL Normal 0.3-1.0 The [facility] Comment on above: Performed By: #### 4 1000, 56245, 29982, 49133, 24675, 31485 ####[facility] [place] [address], [facility] Calcium mass conc 9.8 mg/dL Normal 8.6-10.3 The [facility] Comment on above: Performed By: #### 4 1000, 71968, 01326, 87292, 29806, 58492 ####[facility] [place] [address], [place] Chloride molar conc 103 mmol/L Normal 98-107 [facility] Comment on above: Performed By: #### 4 1000, 35069, 97520, 86134, 40836, 15257 ####[facility] [place] [address], [place] CO2 molar conc 29 mmol/L Normal 21-[address] [facility] Comment on above: Performed By: #### 4 1000, 07722, 39428, 28142, 72294, 95466 ####[facility] [place] [address], [facility] Creatinine mass conc 0.78 mg/dL Normal 0.60-1.20 [facility] Comment on above: Performed By: #### 4 1000, 67010, 16254, 71586, 75945, 88476 ####[facility] [place] [address], [place] GFR/1.73 sq M predicted among blacks MDRD vol rate/area (S/P/Bld) mL/min/{1.73_m2} Normal >60 [facility] Comment on above: Performed By: #### 4 1000, 29301, 33457, 08335, 13254, 10959 ####[facility] [place] [address], [place] GFR/1.73 sq M predicted among non-blacks MDRD vol rate/area (S/P/Bld) mL/min/{1.73_m2} Normal >60 [facility] Comment on above: Performed By: #### 4 1000, 89341, 72961, 68918, 94966, 20356 ####[facility] [place] [address], [place] Glucose mass conc 94 mg/dL Normal 70-100 The [facility] Comment on above: Performed By: #### 4 1000, 64109, 71582, 83096, 47451, 31346 ####[facility] Potassium molar conc 3.8 mmol/L Normal 3.5-5.1 The [facility] Comment on above: Performed By: #### 4 1000, 90055, 09445, 59614, 78910, 62569 ####[facility] Protein mass conc 7.4 g/dL Normal 6.0-8.3 The [facility] Comment on above: Performed By: #### 4 1000, 08168, 95581, 96270, 87716, 41762 ####[facility] Sodium molar conc 136 mmol/L Normal 136-145 The [facility] Comment on above: Performed By: #### 4 1000, 60008, 02914, 12632, 87574, 78594 ####[facility] Urea nitrogen mass conc 19 mg/dL Normal 7-25 [facility] Comment on above: Performed By: #### 4 1000, 95530, 18041, 18260, 53106, 52331 ####[facility] DIRECT BILIon 02-26-2017 Bilirubin.direct mass conc 0.1 mg/dL Normal 0.0-0.2 The [facility] Comment on above: Performed By: #### 4 1000, 39028, 21218, 12813, 19115, 92602 ####[facility] [place] [address], [facility] EVEROLIMUS [id number] 7 EVEROLIMUS 5.9 ng/mL Normal [facility] Comment on above: Result [...] the transplantcenter.Test developed and characteristics determined by [employer]. See Compliance Statement B: [employer]/CSPerformed by [employer],[address] [place] [id number] ujj.[employer] Records [employer] Resources, Leonid Antonio MD - Lab. Director HEMOGLOBIN A1Con 02-26-2017 Glucose mass conc 108 mg/dL Normal 70-126 [facility] Comment on above: Performed By: #### 4 6791, 75706 ####[facility] [facility] [place] [address], [facility] Hemoglobin A1c/Hemoglobin.total mass fraction (Bld) 5.4 % Normal 4.0-6.0 The [facility] Comment on above: Performed By: #### 4 7102, 03166 ####[facility] [facility] [place] [place] [address], [facility] LIPID PROFILEon 02-26-2017 Cholesterol in HDL mass conc 54 mg/dL Normal 23-92 The [facility] Comment on above: Result Comment: Slig ht variation in normal range could be due to gender and/or age.HDL CHOLESTEROL REFERENCE RANGE:20 years and older Cardiovascular Risk> or =60 mg/dL Ciplhxbup94 TO 59 mg/dL Low Risk<40 mg/dL High Risk Performed By: #### 4 1000, 14732, 86596, 56500, 33789, 69313 ####[facility] [place] [address], [place] Cholesterol in LDL mass conc 70 mg/dL Normal 0-130 The [facility] Comment on above: Result Comment: LDL IS A CALCULATIONLDL IS ONLY VALID IF THE TRIG IS LESS THAN 400. Performed By: #### 4 1000, 81099, 28411, 09518, 55349, 69755 ####[facility] [place] [address], [facility] Cholesterol mass conc 144 mg/dL Normal 120-200 [facility] Comment on above: Result Comment: CHOL ESTEROL REFERENCE RANGE:20 YEARS AND OLDER CARDIOVASCULAR RISKLess than 200 mg/dl Low Cikv353 to 239 mg/dl Borderline Gnas013 mg/dl and greater High Risk Performed By: #### 4 1000, 17192, 90208, 64204, 52787, 34758 ####[facility] [place] [address], [facility] Cholesterol.total/Cho lesterol in HDL mass ratio 2.7 {ratio} Normal .0-4.5 The [facility] Comment on above: Performed By: #### 4 1000, 43599, 52868, 53876, 07090, 25408 ####[facility] [place] [address], [place] NON-HDL CHOLESTEROL 90 mg/dL Normal The [facility] Comment on above: Performed By: #### 4 1000, 85892, 87651, 00065, 22393, 01945 ####[facility] [place] [address], [place] Triglyceride mass conc 101 mg/dL Normal 40-149 The [facility] Comment on above: Result Comment: TRIG LYCERIDE REFERENCE RANGE:20 YEARS AND OLDER CARDIOVASCULAR RISKLESS THAN 150 mg/dl LOW [id number] TO 199 mg/dl BORDERLINE [id number] mg/dl AND GREATER HIGH RISK Performed By: #### 4 1000, 65035, 70130, 75441, 13660, 77684 ####[facility] VLDL CHOL 20 mg/dL Normal 0-40 [facility] Comment on above: Performed By: #### 4 1000, 38809, 56185, 51622, 39786, 81033 ####[facility] [facility].[address] MAGNESIUM BLOODon 02-26-2017 Magnesium mass conc 1.9 mg/dL Normal 1.9-2.7 The [facility] Comment on above: Performed By: #### 4 1000, 48001, 07395, 13503, 31595, 87826 ####[facility] [facility].[address] PHOSPHORUS BLOODon 7 Phosphate mass conc 4.1 mg/dL Normal 2.5-5.0 The [facility] Comment on above: Performed By: #### 4 1000, 93613, 84901, 18383, 69313, 82961 ####[facility] [facility].[address] TACROLIMUSon 02-26-2017 Tacrolimus mass conc (Bld) 4.2 ng/mL Low 5.0-20.0 The [facility] Comment on above: Result Comment: The [employer] Tacrolimus assay is a delayed one-step immunoassayfor the quantitative determination of tacrolimus in human whole bloodusing the chemiluminescent microparticle immunoassay (CMIA) technologywith flexible assay protocols, referred to as Chemiflex. Performed By: #### 4 6447, 82545 ####[facility] URIC ACID BLOODon 02-26-2017 Urate mass conc 4.3 mg/dL Normal 2.3-6.6 [facility] Comment on above: Performed By: #### 4 1000, [id number], 54997, 14896, 46466, 13099 ####[facility] Vital Signs Date Time Vital Sign Value Performing Clinician Facility 06-01-2024 13:05-0500 Body height 152.4 cm Ester Hemmer PA Work Phone: [facility] 06-01-2024 13:05-0500 Body mass index (BMI) [Ratio] 24.65 kg/m2 Ester Hemmer PA Work Phone: [facility] 06-01-2024 13:05-0500 Body temperature 98.29 [degF] Ester Hemmer PA Work Phone: [facility] 06-01-2024 13:05-0500 Body weight 57.24 kg Ester Hemmer PA Work Phone: [facility] 06-01-2024 13:05-0500 Diastolic blood pressure 74 mm[Hg] Ester Hemmer PA Work Phone: [facility] 06-01-2024 13:05-0500 Heart rate 69 /min Ester Hemmer PA Work Phone: [facility] 06-01-2024 13:05-0500 Respiratory rate 16 /min Ester Hemmer PA Work Phone: [facility] 06-01-2024 13:05-0500 SaO2% (BldA) [Mass fraction] 95 % Ester Hemmer PA Work Phone: [facility] 06-01-2024 13:05-0500 Systolic blood pressure 112 mm[Hg] Ester Hemmer PA Work Phone: [facility] 08-30-2023 09:22-0400 Body height 182.88 cm [facility] 08-30-2023 09:22-0400 Body mass index (BMI) [Ratio] 17.9 kg/m2 [facility] 08-30-2023 09:22-0400 Body temperature 99.8 [degF] [facility] 08-30-2023 09:22-0400 Body weight 59.87 kg [facility] 08-30-2023 09:22-0400 Diastolic blood pressure 73 mm[Hg] [facility] 08-30-2023 09:22-0400 Heart rate 67 /min [facility] 08-30-2023 09:22-0400 SaO2% (BldA) [Mass fraction] 95 % [facility] 08-30-2023 09:22-0400 Systolic blood pressure 111 mm[Hg] [facility] 03-27-2023 11:30-0500 Body height 152.4 cm Cathy Bella Other [employer] [facility] [employer] Other 03-27-2023 11:30-0500 Body mass index (BMI) [Ratio] 25.39 kg/m2 Cathy Bella Other [employer] Other 03-27-2023 11:30-0500 Body temperature 97.5 [degF] Cathy Bella Other [employer] Other 03-27-2023 11:30-0500 Body weight 58.97 kg Cathy Bella Other [employer] Other 03-27-2023 11:30-0500 Respiratory rate 18 /min Cathy Bella Other [employer] Other 03-27-2023 11:30-0500 SaO2% (BldA) [Mass fraction] 96 % Cathy Bella Other [employer] Other 09-21-2022 09:00-0400 Body height 152.4 cm Martha Guevara Other [employer] Other 09-21-2022 09:00-0400 Body mass index (BMI) [Ratio] 22.46 kg/m2 Martha Guevara Other [employer] Other 09-21-2022 09:00-0400 Body temperature 97.6 [degF] Martha Guevara Other [employer] Other 09-21-2022 09:00-0400 Body weight 52.16 kg Martha Guevara Other [employer] Other 09-21-2022 09:00-0400 Diastolic blood pressure 70 mm[Hg] Martha Guevara Other [employer] Other 09-21-2022 09:00-0400 Respiratory rate 18 /min Martha Guevara Other [employer] Other 09-21-2022 09:00-0400 SaO2% (BldA) [Mass fraction] 96 % Martha Guevara Other [employer] Other 09-21-2022 09:00-0400 Systolic blood pressure 107 mm[Hg] Martha Guevara Other [employer] Other 01-12-2022 13:55-0400 Body height 152.4 cm Cathy Bella Other [employer] Other 01-12-2022 13:55-0400 Body mass index (BMI) [Ratio] 19.53 kg/m2 Cathy Bella Other [employer] Other 01-12-2022 13:55-0400 Body temperature 96.9 [degF] Cathy Bella Other [employer] Other 01-12-2022 13:55-0400 Body weight 45.36 kg Cathy Shayne Other [employer] Other 01-12-2022 13:55-0400 Respiratory rate 18 /min Cathy Bella Other [employer] Other 01-12-2022 13:55-0400 SaO2% (BldA) [Mass fraction] 97 % Cathy Bella Other [employer] Other 12-28-2021 10:20-0400 Body height 152.4 cm Martha Guevara Other [employer] Other 12-28-2021 10:20-0400 Body mass index (BMI) [Ratio] 21.48 kg/m2 Martha Smithmond Other [employer] Other 12-28-2021 10:20-0400 Body temperature 98 [degF] Martha Smithmond Other [employer] Other 12-28-2021 10:20-0400 Body weight 49.9 kg Martha Smithmond Other [employer] Other 12-28-2021 10:20-0400 Respiratory rate 18 /min Martha Smithmond Other [employer] Other 12-28-2021 10:20-0400 SaO2% (BldA) [Mass fraction] 97 % Martha Paola Other [employer] Other 12-25-2021 10:05-0400 Body height 152.4 cm Cathy Bella Other [employer] Other 12-25-2021 10:05-0400 Body mass index (BMI) [Ratio] 21.48 kg/m2 Cathy Bella Other [employer] Other 12-25-2021 10:05-0400 Body temperature 96 [degF] Cathy Bella Other [employer] Other 12-25-2021 10:05-0400 Body weight 49.9 kg Cathy Bella Other [employer] Other 12-25-2021 10:05-0400 Respiratory rate 18 /min Cathy Bella Other [employer] Other 12-25-2021 10:05-0400 SaO2% (BldA) [Mass fraction] 97 % Cathy Bella Other [employer] Other 10-27-2021 12:35-0400 Body height 152.4 cm Cathy Bella Other [employer] Other 10-27-2021 12:35-0400 Body mass index (BMI) [Ratio] 22.85 kg/m2 Cathy Bella Other [employer] Other 10-27-2021 12:35-0400 Body weight 53.07 kg Cathy Bella Other [employer] Other 10-27-2021 12:35-0400 Diastolic blood pressure 87 mm[Hg] Cathy Bella Other [employer] Other 10-27-2021 12:35-0400 SaO2% (BldA) [Mass fraction] 98 % Cathy Bella Other [employer] Other 10-27-2021 12:35-0400 Systolic blood pressure 130 mm[Hg] Cathy Bella Other [employer] Other 08-14-2021 10:40-0400 Body height 152.4 cm Martha Paola Other [employer] Other 08-14-2021 10:40-0400 Body mass index (BMI) [Ratio] 22.46 kg/m2 Martha Smithmond Other [employer] Other 08-14-2021 10:40-0400 Body temperature 96.7 [degF] Martha Smithmond Other [employer] Other 08-14-2021 10:40-0400 Body weight 52.16 kg Martha Smithmond Other [employer] Other 08-14-2021 10:40-0400 Diastolic blood pressure 68 mm[Hg] Martha Paola Other [employer] Other 08-14-2021 10:40-0400 Respiratory rate 20 /min Martha Paola Other [employer] Other 08-14-2021 10:40-0400 SaO2% (BldA) [Mass fraction] 98 % Martha Paola Other [employer] Other 08-14-2021 10:40-0400 Systolic blood pressure 144 mm[Hg] Martha Paola Other [employer] Other Encounters Encounter Date Encounter Type Care [...] pansinusitis; Acute bronchitis, unspecified organism; Primary hypertension ([facility]/HCC); PKD (polycystic kidney disease); Joint contracture of foot, unspecified laterality; Immunosuppression ([facility]/HCC); Abnormal complete blood count; Current moderate episode of major depressive disorder without prior episode (HCC) (CMS/[facility]); Elevated alkaline phosphatase level; Estrogen deficiency; Generalized anxiety disorder (CMS/HCC); Hypercholesteremia ([facility]/HCC); Hypomagnesemia; Renal transplant recipient ([facility]) Start: 06-01-2024 End: 06-01-2024 ambulatory ESTER PADILLA [...] Department Unsolicited Start: 04-01-2024 End: 04-01-2024 ambulatory [facility] Start: 03-19-2024 End: 03-19-2024 Clinisync Result [...] Start: 09-23-2023 End: 09-23-2023 ambulatory VIRGIL HAYNES [facility] Start: 09-02-2023 End: 09-02-2023 ambulatory ESTER PADILLA Not Available Start: 08-30-2023 End: 08-30-2023 ambulatory [facility] Work Phone: Start: 08-30-2023 End: 08-30-2023 Patient encounter procedure [facility] Work Phone: Start: 03-27-2023 End: 03-27-2023 ambulatory Cathy Bella Other [employer] Other Start: 03-27-2023 Office outpatient vi sit 25 minutes Cathy Bella [facility] Start: 09-21-2022 End: 09-21-2022 ambulatory Martha Guevara Other [employer] Other Start: 09-21-2022 Office outpatient vi sit [...] 01-12-2022 End: 01-12-2022 ambulatory Cathy Bella Other [employer] Other Start: 01-12-2022 Office outpatient vi sit 15 minutes Cathy Bella [facility] Start: 01-07-2022 End: 01-07-2022 ambulatory ISATU GUAMAN . Facility:[facility] Start: 01-03-2022 End: 01-04-[address] VIRGIL SWIFT Facility:[facility] Start: 12-28-2021 End: 12-28-2021 ambulatory Martha Guevara Other [employer] Other Start: 12-28-2021 Office outpatient vi sit 15 minutes Martha Guevara [facility] Start: 12-25-2021 End: 12-25-2021 ambulatory Cathy Bella Other [employer] Other Start: 12-25-2021 Office outpatient vi sit 25 minutes Cathy Bella [facility] Start: 12-05-2021 End: 12-06-[address] DOCTOR CERNA Facility:[facility] Start: 11-07-2021 End: 11-08-[address] DOCTOR CERNA Facility:[facility] Start: 10-27-2021 End: 10-27-2021 ambulatory Cathy Bella Other [employer] Other Start: 10-27-2021 Office outpatient vi sit 15 minutes Cathy Bella [facility] Start: 10-15-2021 End: 10-16-[address] DOCTOR MISC Facility:[facility] Start: 10-08-2021 End: 10-09-[address] DOCTOR MISC Facility:[facility] Start: 09-10-2021 End: 09-11-[address] DOCTOR MISC Facility:[facility] Start: 08-14-2021 End: 08-14-2021 ambulatory Martha Guevara Other [employer] Other Start: 08-14-2021 Office outpatient vi sit 15 minutes Martha Guevara [facility] Start: 12-31-2017 End: 01-01-2018 Patient encounter VIRGIL HAYNES Facility:[facility] Start: 12-25-2017 End: 12-26-2017 Patient encounter ROSALINDA ROSENBAUM Facility:[facility] Start: 10-30-2017 End: 10-31-2017 Patient encounter ROSALINDA ROSENBAUM Facility:[facility] Start: 10-23-2017 End: 10-24-2017 Patient encounter ROSALINDA ROSENBAUM Facility:[facility] Start: 09-25-2017 End: 09-26-2017 Patient encounter ROSALINDA ROSENBAUM Facility:[facility] Start: 08-26-2017 End: 08-27-2017 Patient encounter ROSALINDA ROSENBAUM Facility:[facility] Start: 07-23-2017 End: 07-24-2017 Patient encounter ROSALINDA ROSENBAUM Facility:[facility] Start: 06-20-2017 End: 06-21-2017 Patient encounter ROSALINDA ROSENBAUM Facility:[facility] Start: 05-27-2017 End: 05-28-2017 Patient encounter ROSALINDA ROSENBAUM Facility:[facility] Start: 04-29-2017 End: 04-30-2017 Patient encounter ROSALINDA ROSENBAUM Facility:[facility] Start: 03-27-2017 End: 03-28-2017 Patient encounter ROSALINDA ROSENBAUM Facility:[facility] Start: 02-26-2017 End: 02-27-2017 Patient encounter DOE BRIDGES Facility:[facility] Procedures Date Procedure Procedure Detail Performing [...] Start: 02-13-2024 [facility] CMP (CMP) (FOR REMOTE [facility] USE) Generic External Data Provider Start: 02-13-2024 [...] History of renal transplant Renal transplant recipient ([facility]) Ester STEIN Work Phone: Plan of Treatment [...] CI [facility] [address] [place] [id number] Ester Padilla PA [address] [place] [address] Arrived [facility] Comment on above: Arrived Start: 04-02-2024 Medicare Annual Well ness (AWV) Medicare Annual Wellness (AWV) [facility] Start: 11-30-2023 Influenza vaccination Influenza Vacc ine (#1) [facility] Start: 07-24-2023 Screening for malign ant neoplasm of breast Mammogram [facility] Start: 1961 Pneumococcal Vaccine : 65+ Years (1 of 2 - PCV) Pneumococcal Vaccine: 65+ Years (1 of 2 - PCV) [facility] Start: 1955 Screening for malign ant neoplasm of colon [facility] Immunizations Immunization Date Immunization Notes Care Provider Fa [facility] 02-19-2024 influenza, injectabl e, madin karey canine kidney, preservative free Ester STEIN Work Phone: [facility] 01-10-2023 Influenza, Seasonal, Quadrivalent, Adjuvanted Generic Provider [facility] 01-10-2023 influenza virus vaccine, unspecified formulation Generic Provider [facility] 09-16-2022 zoster vaccine recombinant Generic Provider [facility] 07-22-2022 zoster vaccine recombinant Generic Provider [facility] 02-19-2022 Influenza, injectabl e, Madin Karey Canine Kidney, preservative free, quadrivalent Generic Provider [facility] 02-19-2022 SARS-COV-2 (COVID-19 ) vaccine, mRNA, spike protein, LNP, bivalent, PF Generic Provider [facility] 01-09-2021 influenza, seasonal, injectable Generic Provider [facility] 12-12-2019 influenza, injectabl e, quadrivalent, preservative free Generic Provider [facility] 12-26-2018 influenza, injectabl e, quadrivalent, contains preservative Generic Provider [facility] 01-21-2018 influenza, injectabl e, quadrivalent, contains preservative Generic Provider [facility] 12-29-2017 influenza, injectabl e, quadrivalent, preservative free Generic Provider [facility] 12-20-2016 influenza, injectabl e, quadrivalent, preservative free Generic Provider [facility] 12-02-2016 seasonal influenza, intradermal, preservative free Generic Provider [facility] 01-16-2015 influenza, injectabl e, quadrivalent, preservative free Generic Provider [facility] 03-16-2009 influenza virus vaccine, split virus (incl. purified surface antigen) Martah Paola Other [employer] Other 03-16-2009 influenza virus vaccine, unspecified formulation [facility] Payers Date Payer Category Payer Medicare [facility] MEDICARE ADVANTAGE [facility] MEDICARE ADVANTAGE [id number] 2021-Present [address] [place] [id number] 2021 Medicare (Managed Care) [facility] Member Subscriber Plan / Payer (Effective 2021-Present) Name: Tanika Grimm Relation to Subscriber: Self Name: Tanika Grimm Payer ID: Not on file Group ID: [id number] Type: Not on file Address: [address] [id number] 1958 [facility] [id number] [id number] 1959 Self-pay 1959 Unknown [id number] 1956 Unknown [id number] 2.16.840.1.815095.3.579. 2.647 1956 Unknown [id number] 2.16.840.1.927862.3.579. 2.647 1956 Unknown [id number] 2.16.840.1.180494.3.579. 2.647 1956 Unknown [id number] 2.16.840.1.312457.3.579. 2.647 1956 Unknown [id number] 2.16.840.1.743805.3.579. 2.647 1956 Unknown [id number] 2.16.840.1.542175.3.579. 2.647 1956 Unknown [id number] 2.16.840.1.149893.3.579. 2.647 1956 Unknown [id number] 2.16.840.1.612685.3.579. 2.647 1956 Unknown [id number] 2.16.840.1.329621.3.579. 2.647 1956 Unknown [id number] 2.16.840.1.652651.3.579. 2.647 1956 Unknown [id number] 2.16.840.1.603481.3.579. 2.647 1956 Unknown [id number] 2.16.840.1.327294.3.579. 2.647 1956 Unknown [id number] 2.16.840.1.261890.3.579. 2.59 1956 Unknown [id number] 2.16.840.1.352461.3.579. 2.59 1956 Unknown [id number] 2.16.840.1.127606.3.579. 2.593 1956 Unknown [id number] 2.16.840.1.918608.3.579. 2.59 1956 Unknown [id number] 2.16.840.1.887314.3.579. 2.59 1956 Unknown [id number] 2.16.840.1.979227.3.579. 2.59 1956 Unknown [id number] 2.16.840.1.477708.3.579. 2.593 1956 Unknown [id number] 2.16.840.1.019109.3.579. 2.59 1956 Unknown [id number] 2.16.840.1.825824.3.579. 2.593 1956 Unknown [id number] 2.16.840.1.463124.3.579. 2.593 1956 Unknown [id number] 2.16.840.1.548078.3.579. 2.593 1956 Unknown [id number] 2.16.840.1.587671.3.579. 2.593 1956 Unknown [id number] 2.16.840.1.728741.3.579. 2.593 1956 Unknown [id number] 2.16.840.1.335571.3.579. 2.593 1956 Unknown [id number] 2.16.840.1.238418.3.579. 2.593 1956 Unknown [id number] 2.16.840.1.851363.3.579. 2.1259 1956 Unknown [id number] 2.16.840.1.837913.3.579. 2.1259 Unknown [id number] 2.16.840.1.789787.3.579. 2.593 Unknown Amy MCGREGOR/DAYSI [id number] Social History Date Type Detail Facility Unknown if ever smoked [employer] Other Start: 09-02-2023 End: 06-01-2024 Sex Assigned At [employer] Other Start: 01-29-2023 End: 08-30-2023 Tobacco smoking status NHIS Never smoked tobacco (finding) [facility] Start: 1955 Sex Assigned At Female F [facility] Start: 01-29-2023 Tobacco use and exposure Smokeless tobacco non-user [facility] Start: 09-02-2023 End: 06-01-2024 Alcoholic beverage intake Lifetime non-drinker (finding) [facility] Start: 09-02-2023 End: 06-01-2024 History of Social function [facility] Start: 1955 Sex assigned at Not on file N [facility] Clinical Notes 11-10-2007 to 06-01-2024 SARITA [...] Do you have a medical power of insurance defense attorney?: Yes Current Outpatient Medications on File [...] and 3 tablets before bedtime. nystatin (Mycostatin) 704811 UNIT/ML suspension SWISH AND SWALLOW 5 MLS [...] level 01/29/2023 History of stress test Hypertension ([facility]) Joint contracture of foot, unspecified laterality 01/29/2023 Polycystic kidney 2013 Renal transplant recipient ([facility]) 01/29/2023 Past Surgical History: Procedure Laterality Date [...] kidney disease) The patient is seeing a biomedical manager for this condition, treatment is deferred to that specialist. Correspondence from that specialist and any available testing were reviewed during today's visit. 7. Joint contracture of foot, unspecified laterality This is a chronic medical condition that is stable since last assessment. No changes in treatment are suggested at this time. 8. Immunosuppression ([facility]/HCC) The patient is seeing a biomedical manager for this condition, treatment is deferred to that specialist. Correspondence from that specialist and any available testing were reviewed during today's visit. 9. Abnormal complete blood count The patient is seeing a biomedical manager for this condition, treatment is deferred to [...] with preventative screenings. 13. Generalized anxiety disorder ([facility]/HCC) This is a chronic medical condition that [...] with routine labs. 16. Renal transplant recipient ([facility]) The patient is seeing a biomedical manager for this condition, treatment is deferred to that specialist. Correspondence from that specialist and any available testing were reviewed during today's visit. Follow up in about 1 year (around 06/01/2025) for Medicare Wellness Visit. Ester CARRASCO PA-C documented in this encounter [facility] 04-01-2024 Note Transplant Clinic Patient : Tanika [...] Continue meds and MONTHLY Labs with New [facility] standing Order given today. Follow up 6 months or sooner if needed. See Derm See PCP as scheduled: Dr Carroll. Magic Mouthwash script provided. Chart Review today: 03.17.23 Pt presents visit with . Pt states labs done Last week in [facility] and [place] calling for results. Pt seeing Derm in [place] for lesion: forearm and other lesions. Hx: [...] Hgb. Pt AGAIN instructed to use our [facility] Transplant standing order for her monthly labs. Pt reports B/P stable at home Discussed hydration PLan of Care: Continue meds and MONTHLY Labs with [facility] standing Order. Follow up 6 months [...] study. <<<<<<<<<<<<<<<<<<<<<<<<<<<<<<<<<< < (more content not included)... [facility] 12-18-2023 Note Will review by phone today with Dr. Negro Vivas tac level 3.9 for 2 consecutive months and if any dose changes, will notify this pt and amend this note. Most recent IR tacrolimus dosing on record is 0.5mg BID [facility] 12-09-2023 Note Prior auth for Mycop henolate was submitted via [facility] Approved- scanned into media Keycode: [id number] [facility] 11-26-2023 Note Prior auth submitted via CMKristian STEIN Case: [id number], Status: Approved, Coverage Starts on: 08/27/2023 12:00:00 AM, Coverage Ends on: 11/25/2024 12:00:00 AM Keycode: [id number] [facility] 09-23-2023 Note 09/23/23 Chief Complaint Patient presents with Kidney Follow-up Pt has been having sores in her mouth for the past month. PCP: Ramon Carroll MD Txp Referring: Preferred Pharmacy: [facility] - [place], [place] - [address] [facility] [address] [id number] [place], [place] - [address] [place] [phone] [facility] [address] [facility] [address] Subjective Visit Vitals BP 139/74 (BP Location: Left arm, Patient Position: Sitting, BP Cuff Size: Adult) Pulse 59 Temp 36.3 ???C (97.3 ???F) (Oral) Resp 18 Ht 1.524 m (5') Wt 58.5 kg (129 lb) SpO2 99% BMI 25.19 kg/m??? OB Status Postmenopausal Smoking Status Never BSA 1.57 m??? No Known Allergies Medication Documentation Review Audit Reviewed by Ester Frederick MA (Stripping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) on 09/23/23 at 0859 Medication Order Taking? Sig Documenting Provider Last Dose Status amLODIPine (Norvasc) 5 mg tablet [id number] Yes TAKE 1 TABLET BY MOUTH EVERY DAY Virgil Haynes NP Taking Active amoxicillin (Amoxil) 500 mg capsule [id number] No 1 capsule every 8 (eight) hours. Historical Provider, Not Taking Active atorvastatin (Lipitor) 20 mg tablet [id number] Yes TAKE 1 TABLET BY MOUTH EVERY DAY AT BEDTIME Virgil Haynes NP Taking Active baclofen (Lioresal) 10 mg tablet [id number] No Historical Provider, MD Not Taking Active cyanocobalamin (Vitamin B-12) 500 mcg tablet [id number] Yes in the morning. Historical ProviderMD Taking Active magnesium oxide (Mag-Ox) 400 mg (241.3 mg magnesium) tablet [id number] Yes Take 400 mg by mouth in the morning. Historical ProviderMD Taking Active mycophenolate (Myfortic) 180 mg EC tablet [id number] Yes TAKE 4 TABLETS BY MOUTH IN THE MORNING AND AT BEDTIME Patient taking differently: Take 540 mg by mouth in the morning and at bedtime. Doe Bridges MD Taking Active omega-3 fatty acids-fish oil (Fish OiL Extra Strength) 435-880 mg capsule [id number] Yes 1 capsule 1 (one) time each day at the same time. Historical Provider, Taking Active PARoxetine (Paxil) 10 mg tablet [id number] Yes Take 10 mg by mouth in the morning. Historical Provider, Taking Active potassium gluconate 595 mg (99 mg) tablet [id number] Yes every 12 (twelve) hours. Historical Provider, Taking Active spironolactone (Aldactone) 25 mg tablet [id number] Yes TAKE 1 TABLET BY MOUTH EVERY DAY Virgil Haynes NP Taking Active tacrolimus (Prograf) 0.5 mg capsule [id number] Yes TAKE ONE CAPSULE BY MOUTH EVERY [...] Continue meds and MONTHLY Labs with New [facility] standing Order given today. Follow up 6 months or sooner if needed. See Derm See PCP as scheduled: Dr Carroll. Magic Mouthwash script provided. Chart Review today: 03.17.23 Pt presents visit with . Pt states labs done Last week in [facility] and [place] calling for results. Pt seeing Derm in [place] for lesion: forearm and other lesions. Hx: melanoma PCP: local Dr Khoury (more content not included)... [facility] 03-27-2023 Evaluation note Encounter Date Diagnosis Assessment Notes Feb, Contact with and (suspected) exposure to covid-19 (ICD-10 - Z20.822) Feb, Viral URI (ICD-10 - J06.9) Advised patient that COVID/Influenza A/B/RSV test and rapid Strep test was negative today. Advised patient that will treat as viral URI. Supportive care as directed, increase fluids and rest, Tylenol as directed, rx of [place], cool mist humidifier, throat lozenges. Discussed infection [...] condition. Feb, Sore throat (ICD-10 - J02.9) [facility] [employer] Other 10-15-2022 Evaluation note* Encounter Date Diagnosis [...] understanding and is agreeable with treatment plan [facility] [employer] Other 09-30-2022 Evaluation note* Encounter Date Diagnosis [...] no improvement in 2 to 3 days. [facility] [employer] Other 09-27-2022 Evaluation note* Encounter Date Diagnosis [...] treatment plan. Patient left in stable condition [facility] [employer] Other 07-30-2022 Evaluation note* Encounter Date Diagnosis [...] verbalizes understanding and agrees with treatment plan [facility] [employer] Other 05-17-2022 Evaluation note* Encounter Date Diagnosis [...] days July, Hematuria, unspecified (ICD-10 - R31.9) [facility] [employer] Other 08-12-2008 History general Narrative - Reported* Type Description Date Medical History PKD found in 1982 when she had a son Medical History hypertension Medical History kidney transplant Surgical History resection of superior cervical mass 11/10/07 Surgical History Teeth extraction in preparation for renal transplant Surgical History portacath placement Surgical History kidney transplant 2014 Hospitalization History see above [facility] [employer] Other Evaluation [facility]Nort [employer] Other Evaluation note* Diagnosis Onset Date Resolution Status Thrush, oral acute Sore throat noneactive [facility] Work Phone: Evaluation note* Diagnosis Medicare annual wellness visit, subsequent- Primary ACP (advance care planning) Other specified counseling Acute non-recurrent pansinusitis Acute bronchitis, unspecified organism Primary hypertension ([facility]/HCC) Unspecified essential hypertension PKD (polycystic kidney disease) Congenital polycystic kidney, unspecified type Joint contracture of foot, unspecified laterality Immunosuppression ([facility]) Abnormal complete blood count Other abnormal blood chemistry Current moderate episode of major depressive disorder without prior episode (HCC) ([facility]) Elevated alkaline phosphatase level Estrogen deficiency Other ovarian failure Generalized anxiety disorder ([facility]/HCC) Generalized anxiety disorder Hypercholesteremia ([facility]) Pure hypercholesterolemia Hypomagnesemia Disorders of magnesium metabolism Renal transplant recipient ([facility]) documented in this encounter [facility] - [facility] [employer] Other Summary Purpose Family History No Family [...] section and content) DATE CREATED AUTHOR 01/30/2018 [facility] DATE CREATED AUTHOR AUTHOR'S ORGANIZ ATION 08/17/2021 [facility] DATE CREATED AUTHOR AUTHOR'S ORGANIZ ATION 08/13/2022 [facility] DATE CREATED AUTHOR AUTHOR'S ORGANIZ ATION 04/02/2024 [facility] DATE CREATED AUTHOR AUTHOR'S ORGANIZ ATION 06/03/2024 [facility] EPIC REASON FOR VISIT (unrecogniz [...] August 30, 2023 End: August 30, 2023 Special Skills Officer Relationship Specialty Start Date End Date Ramon Carroll MD [address] [facility] [address] [place] [address] PCP - Amy FERREIRA 04/08/21 Ramon Carroll MD [address] [facility] [address] [place] [address] PCP - General Internal Medicine 08/06/22 Special Skills Officer Relationship Specialty Start Date End Date Ramon Carroll MD [address] [facility] [address] [place] [address] PCP - Amy FERREIRA 04/08/21 Ramon Carroll MD [address] [facility] [address] [place] [address] PCP - General Internal Medicine 08/06/22 Special Skills Officer Relationship Specialty Start Date End Date Ramon Carroll MD [address] [facility] [address] [place] [address] PCP - Amy FERREIRA 04/08/21 Ramon Carroll MD [address] [place] [address] [place] [address] PCP - General Internal Medicine 08/06/22 Special Skills Officer Relationship Specialty Start Date End Date Ramon Carroll MD [address] [facility] [address] [place] [address] PCP - General Internal Medicine 08/06/22 Special Skills Officer Relationship Specialty Start Date End Date Ramon Carroll MD [address] [facility] [address] [place] [address] PCP - Amy FERREIRA 04/08/21 Ramon Carroll MD [address] [facility] [address] [place] [address] PCP - General Internal Medicine 08/06/22 Special Skills Officer Relationship Specialty Start Date End Date Ramon Carroll MD [address] [facility] [address] [place] [address] PCP Ailyn Reyes MA 04/08/21 Ramon Carroll MD [address] [facility] [address] [place] [address] PCP - General Internal Medicine 08/06/22 Goals [...] BE BASED ON THE PRIMARY CLINICAL RECORDS. [facility]. provides no warranty or guarantee of the accuracy or completeness of information in this document.
[2024-07-16 07:15] LABS: Basophils Percent Auto 0.1 % (0.2-2.0); Eosinophils Absolute Auto 0.2 10^3/uL (0.0-0.7); Eosinophils Percent Auto 3.4 % (0.9-7.0); Hematocrit 43.1 % (36.0-48.0); Hemoglobin 13.9 g/dL (12.0-16.0); Immature Granulocytes Abs Auto 0.01 10^3/uL (0.00-0.03); Immature Granulocytes Pct Auto 0.1 % (0.0-0.5); Lymphocytes Absolute Auto 1.3 10^3/uL (1.2-3.8); Lymphocytes Percent Auto 18.5 % (20.5-60.0); Mean Corpuscular HGB Conc 32.3 g/dL (29.9-35.2); Mean Corpuscular Hemoglobin 30.5 pg (26.7-34.0); Mean Corpuscular Volume 94.5 fL (81.0-99.0); Mean Platelet Volume 11.6 fL (9.5-13.5); Monocytes Absolute Auto 0.7 10^3/uL (0.3-0.8); Monocytes Percent Auto 9.9 % (1.7-12.0); Neutrophils Absolute Auto 4.8 10^3/uL (1.4-6.5); Platelet Count 209 10^3/uL (150-450); Red Blood Count 4.56 10^6/uL (4.20-5.40); Red Cell Distribution Width 14.7 % (11.0-15.0); White Blood Count 7.1 10^3/uL (4.0-11.0)
[2024-07-16 08:04] LABS: Alanine Aminotransferase 14 U/L (14-59); Albumin Globulin Ratio 1.2; Albumin Level 3.5 g/dL (3.4-5.0); Alkaline Phosphatase 155 U/L (46-116); Anion Gap 9.3; Aspartate Amino Transferase 14 U/L (15-37); BUN Creatinine Ratio 11.3; Bilirubin Direct 0.2 mg/dL (0.0-0.2); Bilirubin Total 0.8 mg/dL (0.2-1.0); Calcium 9.1 mg/dL (8.5-10.1); Carbon Dioxide 29.7 mmol/L (21.0-32.0); Chloride 107 mmol/L (98-107); Estimated GFR (African America >60 (>=60 mL/min/1.73m^2); Estimated GFR (Non-African Ame 57 (>=60 mL/min/1.73m^2); Glucose 93 mg/dL (74-106); Magnesium 1.9 mg/dL (1.8-2.4); Phosphorus 3.2 mg/dL (2.6-4.7); Sodium 142 mmol/L (136-145); Total Protein 6.5 g/dL (6.4-8.2); Uric Acid 5.2 mg/dL (2.6-6.0)
== END 2024-07-16 06:40 | disposition home or self-care (01) ==
LOC: LAB 06:41
PROVIDERS: PCP Internal Medicine
DX: R73.01 Impaired fasting glucose (principal); Z94.0 Kidney transplant status
CPT/HCPCS: 36415; 80053; 80197; 82248; 83735; 84100; 84550; 85025

== ENCOUNTER 2024-08-18 06:39 | Outpatient (OUT) | payer MEDICARE, SELFPAY ==
--- OUTSIDE RECORDS SUMMARY | 2024-08-18 06:44 | XMS_ITS | CCD ---
Author Organization [facility] Care Team Providers Care Sheet Metal Welder Name Role Phone TUSCARORA, DINKAR Unavailable Unavailable TUSCARORA, DINKAR Unavailable Unavailable CARROLL, RAMON Unavailable Unavailable [...] Attending Unavailable MISC, DR OBRIEN Admitting Unavailable TUSCARORA, DR CONNORS Consulting Unavailable CARROLL, DR DARBY Primary Care Unavailable MISC, DR OBRIEN Attending Unavailable MISC, DR OBRIEN Admitting Unavailable MISC, DR OBRIEN Attending Unavailable MISC, DR OBRIEN Admitting Unavailable MISC, DR OBRIEN Consulting Unavailable CARROLL, DR DARBY Primary Care Unavailable TUSCARORA, DR CONNORS Consulting Unavailable TUSCARORA, DR CONNORS Attending Unavailable CARROLL, DR DARBY Primary Care Unavailable TUSCARORA, DR CONNORS Admitting Unavailable TUSCARORA, DR CONNORS Attending Unavailable CARROLL, DR DARBY Primary Care Unavailable TUSCARORA, DR CONNORS Admitting Unavailable TUSCARORA, DR CONNORS Consulting Unavailable MISC, DR OBRIEN [...] Unavailable CARROLL, DR DARBY Primary Care Unavailable TUSCARORA, DR CONNORS Consulting Unavailable TUSCARORA, DR CONNORS Attending Unavailable CARROLL, DR DARBY Primary Care Unavailable TUSCARORA, DR CONNORS Admitting Unavailable MISC, DOCTOR Attending Unavailable MISC, DR OBRIEN Admitting Unavailable MISC, DR OBRIEN Consulting Unavailable CARROLL, DR DARBY Primary Care Unavailable MISC, DOCTOR Attending Unavailable MISC, DR OBRIEN Admitting Unavailable MISC, DR OBRIEN Consulting Unavailable CARROLL, DR DARBY Primary Care Unavailable TUSCARORA, DR CONNORS Consulting Unavailable TUSCARORA, DR CNONORS Attending Unavailable DR DOE BRIDGES Admitting Unavailable DR RAMON CARROLL Primary Care Unavailable Ramon Carroll MD Unavailable Ramon Carroll MD Primary Care Provider [phone] VIRGIL HAYNES Attending Unavailable ASHLI CARTER Attending Unavailable ESTER PADILLA Attending Unavailable ESTER PADILLA Attending Unavailable Medications Current Medications Medication Drug Class(es) Dates Sig (Normalized) Sig (Original) [id number] 200 actuat albuterol 0.09 mg/actuat metered dose inhaler (1 source) beta2-Adrenergic Agonist Start: 12-28-2021 take 2 puff(s) by inhalation four times daily as needed Albuterol Sulfate HFA 108 (90 Base) MCG/ACT 2 puffs Inhalation 4 times a day prn 30 Nov, 2021 Active amLODIPine 5 mg oral tablet (20 sources) Dihydropyridine Calcium Channel Eleonora Start: 11-26-2022 [...] 06/08/2024 Active atorvastatin 20 mg oral tablet (11 sources) HMG-CoA Reductase Inhibitor Start: 08-30-2023 take 20 mg by mouth once daily at bedtime Atorvastatin Active 20 MG PO Daily at bedtime August 30, 2023 12:00am baclofen 10 mg oral tablet (10 sources) gamma-Aminobutyric Acid-ergic Agonist Start: 03-06-2023 take [...] 1.5 mg/ml oral solution (1 source) Uncompetitive J-mfdwrt-U-asparta te Receptor Antagonist, Sigma-1 Agonist Start: 03-27-2023 take 10 mL by mouth every eight hours [place] DM 7.5-7.5 MG/5ML 10 mL Orally every 8 hours for 5 days Feb, Active ergocalciferol 1.25 mg oral capsule (9 sources) Provitamin D2 Compound Start: 06-27-2011 take 1 capsule by mouth every week Vitamin D (Ergocalciferol) 75700 UNIT 1 capsule Orally Once a Week for 90 days May, Active Start: 06-27-2011 everolimus (6 sources) Kinase Inhibitor, mTOR Inhibitor Immunosuppressant Zortress Active ferrous fumarate 325 mg oral tablet (11 sources) Start: Ferrous Fumarate 325 (106 Fe) [...] day for 30 day(s) Active Fish Oils (19 sources) omega-3 (fish oi l) 435 MG [...] 12:00am magnesium oxide 400 mg oral capsule (19 sources) magnesium oxide 400 MG capsule Take [...] acid 180 mg delayed release oral tablet (10 sources) Antimetabolite Immunosuppressant Start: 01-27-2023 take 3 tablets by mouth in the morning mycophenolate (Myfortic) 180 MG EC tablet Take 3 tablets by mouth in the morning and 3 tablets before bedtime. 01/27/2023 Active nystatin 066173 unt/ml oral suspension (11 sources) Polyene Antifungal Start: 09-02-2023 take 5 mL by mouth four times daily nystatin (Mycostatin) 812071 UNIT/ML suspension Indications: Thrush, oral SWISH AND SWALLOW 5 MLS ORALLY 4 TIMES A DAY FOR 10 DAYS 60 mL 1 09/02/2023 Active Start: 08-30-2023 take 1 mL by mouth f our times daily Nystatin Active 5 ML PO Four times daily 200 10 August 30, 2023 12:00am swish and swallow [place] 2-Vsw-Frl-Fish Oil (Fish Oil) 1,000 mg (120 mg-180 mg) capsule (1 source) Start: 08-30-2023 take 1 capsule by mouth once daily [place] 6-Nwe-Nnl-Fish Oil (Fish Oil) 1,000 mg (120 mg-180 mg) capsule Active 1 CAP PO Daily August 30, 2023 12:00am PARoxetine hydrochloride 20 mg oral tablet (11 sources) Serotonin Reuptake Inhibitor Start: 08-30-2023 Paroxetine [...] day for 2 day(s) July, Active Potassium (19 sources) Potassium 99 MG tablet 1 (one) [...] 2023 12:00am spironolactone 25 mg oral tablet (20 sources) Aldosterone Antagonist Start: 08-30-2023 take 25 mg by mouth once daily Spironolactone Active 25 MG PO Daily August 30, 2023 12:00am Spironolactone A ctive tacrolimus 0.5 mg oral capsule (20 sources) Calcineurin Inhibitor Immunosuppressant Start: 01-24-2023 tacrolimus [...] day for 30 day(s) Active vitamin B12 (13 sources) Vitamin B12 Start: 08-30-2023 take 1 [...] [Other specified counseling] 06-01-2024 Episodic Anxiety disorders (15 sources) Mixed anxiety and depressive disorder; Translations: [...] Onset: 5 Episodic Disorders of lipid metabolism (16 sources) Hyperlipidemia, unspecified; Translations: [Hypercholesterolemia] Onset: 2 08-30-2023 Chronic Essential hypertension (19 sources) Hypertensive disorder; Translations: [HTN] Onset: 2 08-30-2023 Chronic Fluid and electrolyte disorders (3 sources) Hyperosmolality and or hypernatremia; Translations: [Hyperosmolality and/or hypernatremia] Episodic Genitourinary congenital anomalies (16 sources) Multiple congenital cysts of kidney; Translations: [Polycystic kidney, unspecified type] Onset: 4 08-30-2023 Chronic Immunity disorders (6 sources) Immunosuppression; Translations: [Immunodeficiency, unspecified] Onset: 5 06-01-2024 Chronic Immunizations and screening for infectious disease (6 sources) Contact with and (suspected) exposure to other viral communicable diseases; Translations: [Contact with and (suspected) exposure to other viral communicable diseases] Episodic Menopausal disorders (12 sources) Decreased estrogen level; 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-2023 Chronic Mood disorders (12 sources) Moderate major depression, single episode; Translations: [Major depressive disorder, single episode, moderate] Onset: 3 03-06-2023 Chronic Other acquired deformities (12 sources) Contracture of joint of foot; Translations: [...] Chronic Other nutritional; endocrine; and metabolic disorders (6 sources) Hypomagnesemia; Translations: [Hypomagnesemia] Onset: 5 06-01-2024 Chronic Other upper respiratory disease (1 source) [...] te Episodic/Chronic Diseases of mouth; excluding dental (11 sources) Other lesions of oral mucosa; Translations: [Parotitis] Onset: 01-29-2023 Resolved: 01-30-2023 Episodic Genitourinary symptoms and ill-defined conditions (10 sources) Hematuria, unspecified; Translations: [Dysuria] Onset: 12-31-2017 Resolved: 08-14-2021 Episodic Mood disorders (10 sources) Mood disorders Onset: 01-30-2023 Resolved: 06-01-2024 01-30-2023 Mycoses (12 sources) Candidiasis of mouth; Translations: [Candidal stomatitis] Onset: 09-02-2023 Resolved: 06-01-2024 08-30-2023 Episodic Other aftercare (1 source) Encounter for therapeutic drug level monitoring; Translations: [ENCOUNTER FOR THERAPEUTIC DRUG LEVEL MONITORING] Onset: 03-27-2017 Episodic Other aftercare (2 sources) Other terminal worker (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 therapy; Translations: [OTHER OCCUPATIONAL THERAPIST (CURRENT) DRUG THERAPY] Onset: 02-26-2017 Episodic Other liver diseases (12 sources) Alkaline phosphatase raised; Translations: [Abnormal levels of other serum enzymes] Onset: 01-29-2023 01-29-2023 Episodic Other screening for suspected conditions (not mental disorders or infectious disease) (16 sources) Encounter for screening mammogram for malignant neoplasm of breast; Translations: [Full blood count abnormal] Onset: 07-23-2022 Episodic Other skin disorders (1 source) Rash and other nonspecific skin eruption Onset: 10-27-2021 Resolved: 10-27-2021 Episodic Other upper respiratory infections (10 sources) Sinusitis; Translations: [Chronic sinusitis, unspecified] Onset: [...] WITH AUTO DIFFon BASOPHILS ABSOLUTE AUTO 0 [facility] Basophils/100 WBC (Bld) 0.1 % Low 0.2 - 2.0 % [facility] Eosinophils/100 WBC (Bld) 3.4 % 0.9 - 7.0 % [facility] Erythrocyte distribution width (RBC) [Ratio] 14.7 % 11.0 - 15.0 % [facility] Hematocrit (Bld) [Volume fraction] 43.1 % 36.0 - 48.0 % [facility] Hemoglobin (Bld) [Mass/Vol] 13.9 g/dL 12.0 - 16.0 g/dL [facility] IMMATURE GRANULOCYTES ABS AUTO 0.01 [facility] Immature granulocytes/100 WBC (Bld) 0.1 % 0.0 - 0.5 % [facility] Interpretation and review of laboratory results Abnormal [facility] LYMPHOCYTES ABSOLUTE AUTO 1.3 [facility] Lymphocytes/100 WBC (Bld) 18.5 % Low 20.5 - 60.0 % [facility] MCH (RBC) [Entitic mass] 30.5 pg 26.7 - 34.0 pg [facility] MCHC (RBC) [Mass/Vol] 32.3 g/dL 29.9 - 35.2 g/dL [facility] MCV (RBC) [Entitic vol] 94.5 fL 81.0 - 99.0 fL [facility] MONOCYTES ABSOLUTE AUTO 0.7 [facility] Monocytes/100 WBC (Bld) 9.9 % 1.7 - 12.0 % [facility] NEUTROPHILS ABSOLUTE AUTO 4.8 [facility] Neutrophils/100 WBC (Bld) 68 % 43.0 - 75.0 % [facility] Platelet mean volume (Bld) [Entitic vol] 11.6 fL 9.5 - 13.5 fL [facility] TBH EO # 0.2 [facility] TBH PLT 209 [facility] TB RBC 4.56 [facility] WBC 7.1 [facility] ALL CBC WITH AUTO DIFFon BASOPHILS ABSOLUTE AUTO 0 [facility] Basophils/100 WBC (Bld) 0.2 % 0.2 - 2.0 % [facility] Eosinophils/100 WBC (Bld) 2.7 % 0.9 - 7.0 % [facility] Erythrocyte distribution width (RBC) [Ratio] 14.6 % 11.0 - 15.0 % [facility] Hematocrit (Bld) [Volume fraction] 46.2 % 36.0 - 48.0 % [facility] Hemoglobin (Bld) [Mass/Vol] 14.8 g/dL 12.0 - 16.0 g/dL [facility] IMMATURE GRANULOCYTES ABS AUTO 0.01 [facility] Immature granulocytes/100 WBC (Bld) 0.2 % 0.0 - 0.5 % [facility] LYMPHOCYTES ABSOLUTE AUTO 1.4 [facility] Lymphocytes/100 WBC (Bld) 22.2 % 20.5 - 60.0 % [facility] MCH (RBC) [Entitic mass] 30.6 pg 26.7 - 34.0 pg [facility] MCHC (RBC) [Mass/Vol] 32 g/dL 29.9 - 35.2 g/dL [facility] MCV (RBC) [Entitic vol] 95.7 fL 81.0 - 99.0 fL [facility] MONOCYTES ABSOLUTE AUTO 0.7 [facility] Monocytes/100 WBC (Bld) 10.3 % 1.7 - 12.0 % [facility] NEUTROPHILS ABSOLUTE AUTO 4.1 [facility] Neutrophils/100 WBC (Bld) 64.4 % 43.0 - 75.0 % [facility] Platelet mean volume (Bld) [Entitic vol] 11.1 fL 9.5 - 13.5 fL [facility] RBC 4.83 [facility] WBC 6.4 [facility] ALL CBC WITH AUTO DIFFon BASOPHILS ABSOLUTE AUTO 0 [facility] Basophils/100 WBC (Bld) 0.3 % 0.2 - 2.0 % [facility] Eosinophils/100 WBC (Bld) 2.8 % 0.9 - 7.0 % [facility] Erythrocyte distribution width (RBC) [Ratio] 14.9 % 11.0 - 15.0 % [facility] Hematocrit (Bld) [Volume fraction] 44.3 % 36.0 - 48.0 % [facility] Hemoglobin (Bld) [Mass/Vol] 14.2 g/dL 12.0 - 16.0 g/dL [facility] IMMATURE GRANULOCYTES ABS AUTO 0.02 [facility] Immature granulocytes/100 WBC (Bld) 0.3 % 0.0 - 0.5 % [facility] Interpretation and review of laboratory results Abnormal [facility] LYMPHOCYTES ABSOLUTE AUTO 1.2 [facility] Lymphocytes/100 WBC (Bld) 17.3 % Low 20.5 - 60.0 % [facility] MCH (RBC) [Entitic mass] 30.5 pg 26.7 - 34.0 pg [facility] MCHC (RBC) [Mass/Vol] 32.1 g/dL 29.9 - 35.2 g/dL [facility] MCV (RBC) [Entitic vol] 95.3 fL 81.0 - 99.0 fL [facility] MONOCYTES ABSOLUTE AUTO 0.7 [facility] Monocytes/100 WBC (Bld) 9.4 % 1.7 - 12.0 % [facility] NEUTROPHILS ABSOLUTE AUTO 5 [facility] Neutrophils/100 WBC (Bld) 69.9 % 43.0 - 75.0 % [facility] Platelet mean volume (Bld) [Entitic vol] 11.5 fL 9.5 - 13.5 fL [facility] TBH EO # 0.2 [facility] PLT 210 [facility] RBC 4.65 [facility] WBC 7.1 [facility] 29on 04-01-2024 29 Addended by: ESTER FREDERICK on: 04/01/2024 02:20 PM Modules accepted: Orders [facility] Follow-Upon 04-01-2024 Follow-Up [id number] Tanika Grimm 1955 F Date Provider Department Center 04/01/2024 [id number] CARTER None Family History Family Status - Relation Status Age at Mother Father Level of Service:32322 [place] OFFICE/OUTPATIENT ESTABLISHED MOD MDM 30 MIN Reason for Visit and Comments: Kidney Follow-up [[id number]] - Pt has no concerns at this time. [facility] ALL CBC WITH AUTO DIFFon BASOPHILS ABSOLUTE AUTO 0 [facility] Basophils/100 WBC (Bld) 0.2 % 0.2 - 2.0 % [facility] Eosinophils/100 WBC (Bld) 2.2 % 0.9 - 7.0 % [facility] Erythrocyte distribution width (RBC) [Ratio] 14.8 % 11.0 - 15.0 % [facility] Hematocrit (Bld) [Volume fraction] 45.3 % 36.0 - 48.0 % [facility] Hemoglobin (Bld) [Mass/Vol] 14.4 g/dL 12.0 - 16.0 g/dL [facility] IMMATURE GRANULOCYTES ABS AUTO 0.02 [facility] Immature granulocytes/100 WBC (Bld) 0.2 % 0.0 - 0.5 % [facility] Interpretation and review of laboratory results Abnormal [facility] LYMPHOCYTES ABSOLUTE AUTO 1.5 [facility] Lymphocytes/100 WBC (Bld) 18.6 % Low 20.5 - 60.0 % [facility] MCH (RBC) [Entitic mass] 30.6 pg 26.7 - 34.0 pg [facility] MCHC (RBC) [Mass/Vol] 31.8 g/dL 29.9 - 35.2 g/dL [facility] MCV (RBC) [Entitic vol] 96.4 fL 81.0 - 99.0 fL [facility] MONOCYTES ABSOLUTE AUTO 0.8 [facility] Monocytes/100 WBC (Bld) 10 % 1.7 - 12.0 % [facility] NEUTROPHILS ABSOLUTE AUTO 5.5 [facility] Neutrophils/100 WBC (Bld) 68.8 % 43.0 - 75.0 % [facility] Platelet mean volume (Bld) [Entitic vol] 11.4 fL 9.5 - 13.5 fL [facility] TBH EO # 0.2 [facility] TBH PLT 197 [facility] TB RBC 4.7 [facility] TBH WBC 8.1 [facility] TACROLIMUS (FK506), BLOODon 02-17-2024 TACROLIMUS (FK506), BLOOD 4.5 ng/mL 2.0 - 20.0 ng/mL [facility] Comment on above: This test was develo ped and its performance characteristics determined by [facility]. It has not been cleared or approved by the Food and Drug Administration. Trough (immediately following transplant) 15.0 Trough (steady state, 2 weeks or more after transplant): 3.0 - 8.0 Performed by LC-MS/MS technology. Performed at: [address] [id number] Fixture Designer: Marizol Singleton MD, Phone: [phone] [facility] ALL CBC WITH AUTO DIFFon BASOPHILS ABSOLUTE AUTO 0 [facility] Basophils/100 WBC (Bld) 0.3 % 0.2 - 2.0 % [facility] Eosin[facility]/100 WBC (Bld) 2.1 % 0.9 - 7.0 % [facility] Erythrocyte distribution width (RBC) [Ratio] 14.7 % 11.0 - 15.0 % [facility] Hematocrit (Bld) [Volume fraction] 43.3 % 36.0 - 48.0 % [facility] Hemoglobin (Bld) [Mass/Vol] 14.2 g/dL 12.0 - 16.0 g/dL [facility] IMMATURE GRANULOCYTES ABS AUTO 0.03 [facility] Immature granulocytes/100 WBC (Bld) 0.4 % 0.0 - 0.5 % [facility] LYMPHOCYTES ABSOLUTE AUTO 1.4 [facility] Lymphocytes/100 WBC (Bld) 20.7 % 20.5 - 60.0 % [facility] MCH (RBC) [Entitic mass] 30.9 pg 26.7 - 34.0 pg [facility] MCHC (RBC) [Mass/Vol] 32.8 g/dL 29.9 - 35.2 g/dL [facility] MCV (RBC) [Entitic vol] 94.1 fL 81.0 - 99.0 fL [facility] MONOCYTES ABSOLUTE AUTO 0.7 [facility] Monocytes/100 WBC (Bld) 10.8 % 1.7 - 12.0 % [facility] NEUTROPHILS ABSOLUTE AUTO 4.4 [facility] Neutrophils/100 WBC (Bld) 65.7 % 43.0 - 75.0 % [facility] Platelet mean volume (Bld) [Entitic vol] 11.3 fL 9.5 - 13.5 fL [facility] TBH EO # 0.1 [facility] TBH PLT 193 [facility] TB RBC 4.6 [facility] TB WBC 6.7 [facility] ALL MAGNESIUMon 02-13-2024 Magnesium [Mass/Vol] 1.7 mg/dL Low 1.8 - 2 .4 mg/dL [facility] ALL PHOSPHOROUSon 02-13-2024 Phosphate [Mass/Vol] 3.4 mg/dL 2.6 - 4 .7 mg/dL [facility] ALL URIC ACIDon 02-13-2024 Urate [Mass/Vol] 4.7 mg/dL 2.6 - 6.0 mg/dL [facility] CCF CMP (CMP) (FOR REMOTE FH C USE)on 02-13-2024 Albumin [Mass/Vol] 3.6 g/dL 3.4 - 5.0 g/dL [facility] ALBUMIN GLOBULIN RATIO 1.2 [facility] ALP [Catalytic activity/Vol] 131 U/L High 46 - 116 U/L [facility] ALT [Catalytic activity/Vol] 16 U/L 14 - 59 U/L [facility] Anion gap [Moles/Vol] 14 mmol/L [facility] AST [Catalytic activity/Vol] 13 U/L Low 15 - 37 U/L [facility] Bilirubin [Mass/Vol] 0.6 mg/dL 0.2 - 1 .0 mg/dL [facility] Calcium [Mass/Vol] 9.1 mg/dL 8.5 - 10. 1 mg/dL [facility] Chloride [Moles/Vol] 108 mmol/L High 98 - 10 7 mmol/L [facility] CO2 [Moles/Vol] 26.1 mmol/L 21.0 - 32.0 mmol/L [facility] Creatinine [Mass/Vol] 0.97 mg/dL 0.55 - 1.02 mg/dL [facility] GFR/1.73 sq M.predicted CKD-EPI (S/P/Bld) [Vol rate/Area] >60 >=60 mL/min/1.73m 2 [facility] Globulin (S) [Mass/Vol] 2.9 g/dL [facility] Glucose [Mass/Vol] 95 mg/dL 74 - 106 mg/dL [facility] Potassium [Moles/Vol] 4.1 mmol/L 3.5 - 5.1 mmol/L [facility] Protein [Mass/Vol] 6.5 g/dL 6.4 - 8.2 g/dL [facility] Sodium [Moles/Vol] 144 mmol/L 136 - 145 mmol/L [facility] TBH EGFR-NON AF DUTCH 57 Low >=60 mL/min/1.73m 2 [facility] Urea nitrogen [Mass/Vol] 16 mg/dL 7.0 - 18.0 mg/dL [facility] Urea nitrogen/Creatinine [Mass ratio] 16.5 mg/mg [facility] METRO BILIRUBIN, DIRECTon Bilirubin.indirect [Mass/Vol] 0.1 mg/dL 0.0 - 0.2 mg/dL [facility] No Panel Informationon 02-12 Interpretation and review of laboratory results Abnormal [facility] ALL CBC WITH AUTO DIFFon BASOPHILS ABSOLUTE AUTO 0 [facility] Basophils/100 WBC (Bld) 0.1 % Low 0.2 - 2.0 % [facility] Eosinophils/100 WBC (Bld) 2.5 % 0.9 - 7.0 % [facility] Erythrocyte distribution width (RBC) [Ratio] 14.6 % 11.0 - 15.0 % [facility] Hematocrit (Bld) [Volume fraction] 43.8 % 36.0 - 48.0 % [facility] Hemoglobin (Bld) [Mass/Vol] 14 g/dL 12.0 - 16.0 g/dL [facility] IMMATURE GRANULOCYTES ABS AUTO 0.02 [facility] Immature granulocytes/100 WBC (Bld) 0.3 % 0.0 - 0.5 % [facility] Interpretation and review of laboratory results Abnormal [facility] LYMPHOCYTES ABSOLUTE AUTO 1.4 [facility] Lymphocytes/100 WBC (Bld) 18.7 % Low 20.5 - 60.0 % [facility] MCH (RBC) [Entitic mass] 30.3 pg 26.7 - 34.0 pg [facility] MCHC (RBC) [Mass/Vol] 32 g/dL 29.9 - 35.2 g/dL [facility] MCV (RBC) [Entitic vol] 94.8 fL 81.0 - 99.0 fL [facility] MONOCYTES ABSOLUTE AUTO 0.8 [facility] Monocytes/100 WBC (Bld) 11.1 % 1.7 - 12.0 % [facility] NEUTROPHILS ABSOLUTE AUTO 4.9 [facility] Neutrophils/100 WBC (Bld) 67.3 % 43.0 - 75.0 % [facility] Platelet mean volume (Bld) [Entitic vol] 11.2 fL 9.5 - 13.5 fL [facility] TBH EO # 0.2 [facility]T [facility] RBC 4.62 [facility] WBC 7.3 [facility] ALL CBC WITH AUTO DIFFon BASOPHILS ABSOLUTE AUTO 0.0 [facility] Basophils/100 WBC (Bld) 0.3 % 0.2 - 2.0 % [facility] Eosinophils/100 WBC (Bld) 3.6 % 0.9 - 7.0 % [facility] Erythrocyte distribution width (RBC) [Ratio] 14.7 % 11.0 - 15.0 % [facility] Hematocrit (Bld) [Volume fraction] 46.0 % 36.0 - 48.0 % [facility] Hemoglobin (Bld) [Mass/Vol] 14.7 g/dL 12.0 - 16.0 g/dL [facility] IMMATURE GRANULOCYTES ABS AUTO 0.01 [facility] Immature granulocytes/100 WBC (Bld) 0.2 % 0.0 - 0.5 % [facility] LYMPHOCYTES ABSOLUTE AUTO 1.4 [facility] Lymphocytes/100 WBC (Bld) 22.4 % 20.5 - 60.0 % [facility] MCH (RBC) [Entitic mass] 30.1 pg 26.7 - 34.0 pg [facility] MCHC (RBC) [Mass/Vol] 32.0 g/dL 29.9 - 35.2 g/dL [facility] MCV (RBC) [Entitic vol] 94.3 fL 81.0 - 99.0 fL [facility] MONOCYTES ABSOLUTE AUTO 0.6 [facility] Monocytes/100 WBC (Bld) 9.6 % 1.7 - 12.0 % [facility] NEUTROPHILS ABSOLUTE AUTO 3.9 [facility] Neutrophils/100 WBC (Bld) 63.9 % 43.0 - 75.0 % [facility] Platelet mean volume (Bld) [Entitic vol] 11.6 fL 9.5 - 13.5 [facility]L [facility]T [facility] RBC 4.88 [facility] WBC 6.0 [facility] MLR HEMOGLOBIN A1Con 09-16-2 024 Glucose [Mass/Vol] 108 mg/dL [facility] HbA1c (Bld) [Mass fraction] 5.4 % 4.5 - 6.2 % [facility] Comment on above: ADA RECOMMENDED LIMI T 4.0 - 6.0 ADA THERAPEUTIC TARGET < 7.0 ACTION SUGGESTED > 7.0 [facility] Documentationon 12-09-2023 Documentation [id number] Tanika Grimm 1955 Provider Department Center 12/09/2023 FERNANDA MARVIN TXGely None Family History Family Status - Relation Status Age at Mother Father Reason for Visit and Comments: Prior auth : Mycophenolate [Other] [facility] Documentationon 11-26-2023 Documentation [id number] Tanika Grimm 1955 Provider Department Center 11/26/2023 DonnaAURELIO FERNANDA TXGely None Family History Family Status - Relation Status Age at Mother Father Reason for Visit and Comments: Prior auth Tac 0.5mg [Other] [facility] Documentationon 10-27-2023 Documentation [id number] Tanika Grimm 1955 Provider Department Center 10/27/2023 750ANEL ALLEN TXP None Family History Family Status - Relation Status Age at Mother Father [facility] 29on 09-23-2023 29 Addended by: DIANE LE on: 09/23/2023 03:27 PM Modules accepted: Orders [facility] Follow-Upon 09-23-2023 Follow-Up [id number] Tanika Grimm 1955 Provider Department Center 09/23/2023 124-VIRGIL HAYNES TXP None Family History Family Status - Relation Status Age at Mother Father Level of Service:[id number] [place] OFFICE/OUTPATIENT ESTABLISHED MOD MDM 30 MIN Reason for Visit and Comments: Kidney Follow-up [] - Pt has been having sores in her mouth for the past month. [facility] No Panel InformationOrdered By: Lindsay Soria on 08-30-2023 Quick Strep (POC) [facility] Documentationon 08-26-2023 Documentation [id number] Tanika Grimm 1955 F Date Provider Department Center 08/26/2023 750-RUTH TYMARA TXP None No family history on file Normal [facility] Documentationon 05-19-2023 Documentation [id number] Tanika Grimm 1955 F Date Provider Department Center 05/19/2023 750-RUTH, TYMARA TXP None No family history on file Normal [facility] COVID/FLU/RSV RT-PCRon 03-27 SARS-CoV-2 (COVID-19) RNA MURALI+probe Ql (Unsp spec) Negative [facility] [employer] Other COVID/FLU/RSV RT-PCR Negative Nort [facility] [employer] Other Quick Strepon 03-27-2023 S. pyogenes Org specific cx Ql (Throat) Negative [facility] [employer] Other Quick Strep [facility] [employer] Other BILIRUBIN CONJUGATED (DIRECT )on 08-12-2022 BILI, CONJUGATED 0.1 mg/dL Normal 0.0-0.2 [facility] Comment on above: Performed By: #### D DAVIDSON, MG, PHOS, CMP, LIPID, URIC #### [facility] [address] [place] [address] Dr. Sarmad Patino GLYCOHEMOGLOBIN A1Con 2022 ADA RECOMMENDATION SEE BELOW Normal [facility] Comment on above: Result Comment: ADA RECOMMENDED LIMIT 4.0 - 6.0 ADA THERAPEUTIC TARGET < 7.0 ACTION SUGGESTED > 7.0 Performed By: #### D DAVIDSON, MG, PHOS, CMP, LIPID, URIC #### [facility] [address] [address] [address] Sarmad Patino Glucose [Mass/Vol] 108 mg/dL Normal [facility] Comment on above: Performed By: #### D DAVIDSON, MG, PHOS, CMP, LIPID, URIC #### [facility] [address] [address] [address] Sarmad Patino HbA1c (Bld) [Mass fraction] 5.4 % Normal 4.5-6.2 [facility] Comment on above: Performed By: #### D DAVIDSON, MG, PHOS, CMP, LIPID, URIC #### [facility] [address] [place] [address] Dr. Sarmad Patino MAGNESIUMon 08-12-2022 Magnesium [Mass/Vol] 1.7 mg/dL Critically low 1.8-2.4 [facility] Comment on above: Performed By: #### D DAVIDSON, MG, PHOS, CMP, LIPID, URIC #### [facility] [address] [place] [address] Dr. Sarmad Patino PHOSPHORUSon 08-12-2022 Phosphate [Mass/Vol] 3.9 mg/dL Normal 2.6-4.7 [facility] Comment on above: Performed By: #### U JUVE, LIPID, MG, CMP, DBIL, PHOS #### [facility] [address] [place] [address] Dr. Sarmad Patino PROF 14(COMP METB)on 023 Albumin [Mass/Vol] 3.9 g/dL Normal 3.4-5.0 [facility] Comment on above: Performed By: #### D DAVIDSON, MG, PHOS, CMP, LIPID, URIC #### [facility] [address] [place] [address] Dr. Sarmad Patino Albumin/Globulin [Mass ratio] 1.2 {ratio} Normal [facility] Comment on above: Performed By: #### D DAVIDSON, MG, PHOS, CMP, LIPID, URIC #### [facility] [address] [place] [address] Dr. Sarmad Patino ALP [Catalytic activity/Vol] 126 U/L Critically high 46-116 [facility] Comment on above: Performed By: #### D DAVIDSON, MG, PHOS, CMP, LIPID, URIC #### [facility] [address] [place] [address] Dr. Sarmad Patino ALT [Catalytic activity/Vol] 18 U/L Normal 14-59 [facility] Comment on above: Performed By: #### D DAVIDSON, MG, PHOS, CMP, LIPID, URIC #### [facility] [address] [address] [address] Sarmad Patino Anion gap [Moles/Vol] 10.4 mmol/L Normal [facility] Comment on above: Performed By: #### D DAVIDSON, MG, PHOS, CMP, LIPID, URIC #### [facility] [address] [address] [address] Sarmad Patino AST [Catalytic activity/Vol] 14 U/L Critically low 15-37 [facility] Comment on above: Performed By: #### D DAVIDSON, MG, PHOS, CMP, LIPID, URIC #### [facility] [address] [place] [address] Dr. Sarmad Patino Bilirubin [Mass/Vol] 0.7 mg/dL Normal 0.2-1.0 [facility] Comment on above: Performed By: #### D DAVIDSON, MG, PHOS, CMP, LIPID, URIC #### [facility] [address] [place] [address] Dr. Sarmad Patino Calcium [Mass/Vol] 9.8 mg/dL Normal 8.5-10.1 [facility] Comment on above: Performed By: #### D DAVIDSON, MG, PHOS, CMP, LIPID, URIC #### [facility] [address] [place] [address] Dr. Sarmad Patino Chloride [Moles/Vol] 106 mmol/L Normal 98-107 [facility] Comment on above: Performed By: #### D DAVIDSON, MG, PHOS, CMP, LIPID, URIC #### [facility] [address] [place] [address] Dr. Sarmad Patino CO2 [Moles/Vol] 32.1 mmol/L Critically high 21.0-32.0 [facility] Comment on above: Performed By: #### D DAVIDSON, MG, PHOS, CMP, LIPID, URIC #### [facility] [address] [place] [address] Dr. Sarmad Patino Creatinine [Mass/Vol] 0.92 mg/dL Normal 0.55-1.02 [facility] Comment on above: Performed By: #### D DAVIDSON, MG, PHOS, CMP, LIPID, URIC #### [facility] [address] [address] [address] Sarmad Patino EGFR-AF DUTCH >60 Normal >=60 [facility] Comment on above: Performed By: #### D DAVIDSON, MG, PHOS, CMP, LIPID, URIC #### [facility] [address] [address] [address] Sarmad Patino EGFR-NON AF DUTCH >60 Normal >=60 [facility] Comment on above: Performed By: #### D DAVIDSON, MG, PHOS, CMP, LIPID, URIC #### [facility] [address] [address] [address] Sarmad Patino Globulin (S) [Mass/Vol] 3.3 g/dL Normal [facility] Comment on above: Performed By: #### D DAVIDSON, MG, PHOS, CMP, LIPID, URIC #### [facility] [address] [address] [address] Sarmad Patino Glucose [Mass/Vol] 102 mg/dL Normal 74-106 [facility] Comment on above: Performed By: #### D DAVIDSON, MG, PHOS, CMP, LIPID, URIC #### [facility] [address] [address] [address] Sarmad Patino Potassium [Moles/Vol] 4.5 mmol/L Normal 3.5-5.1 [facility] Comment on above: Performed By: #### D DAVIDSON, MG, PHOS, CMP, LIPID, URIC #### [facility] [address] [address] [address] Sarmad Pation Protein [Mass/Vol] 7.2 g/dL Normal 6.4-8.2 [facility] Comment on above: Performed By: #### D DAVIDSON, MG, PHOS, CMP, LIPID, URIC #### [facility] [address] [address] [address] Sarmad Patino Sodium [Moles/Vol] 144 mmol/L Normal 136-145 [facility] Comment on above: Performed By: #### D DAVIDSON, MG, PHOS, CMP, LIPID, URIC #### [facility] [address] [address] [address] Sarmad Patino Urea nitrogen [Mass/Vol] 20.0 mg/dL Critically high 7.0-18.0 [facility] Comment on above: Performed By: #### D DAVIDSON, MG, PHOS, CMP, LIPID, URIC #### [facility] [address] [address] [address] Sarmad Patino Urea nitrogen/Creatinine [Mass ratio] 21.7 mg/mg Normal [facility] Comment on above: Performed By: #### D DAVIDSON, MG, PHOS, CMP, LIPID, URIC #### [facility] [address] [address] [address] Sarmad Patino URIC ACID SERUMon 08-12-2022 Urate [Mass/Vol] 5.2 mg/dL Normal 2.6-6.0 [facility] Comment on above: Performed By: #### D DAVIDSON, MG, PHOS, CMP, LIPID, URIC #### [facility] [address] [address] [address] Sarmad Patino MG MAMM SCREEN 3D DAVIDSON CADon 07-23-2022 MG MAMM SCREEN 3D DAVIDSON CAD Patient: TANIKA GRIMM Exam Date: 07/23/2022 : 1955 Gender:F Ordering : DR RAMON CARROLL M.D. Admission #: [id number] Family : Order #: [id number] CLICK HERE TO VIEW EXAM RADIOLOGY REPORT [...] Treatments None Family Cancers None LOCATION: [facility] BREAST COMPOSITION: Extremely dense, which lowers [...] M.D. on 07/23/2022 at 16:59 Normal [facility] FK506 (TACROLIMUS) WHOLE BLO ODon 07-10-2022 Tacrolimus (FK506), Blood 3.8 ng/mL Normal 2.0-20.0 [facility] Comment on above: Result Comment: Trou gh (immediately following transplant) 15.0 . Trough (steady state, 2 weeks or more after transplant): 3.0 - 8.0 . Performed by LC-MS/MS technology. Performed By: #### D DAVIDSON, MG, PHOS, CMP, LIPID, URIC #### [facility] [address] [place] [address] Dr. Sarmad Patino BILIRUBIN CONJUGATED (DIRECT )on 07-08-2022 BILI, CONJUGATED 0.1 mg/dL Normal 0.0-0.2 [facility] Comment on above: Performed By: #### U JUVE, LIPID, MG, CMP, DBIL, PHOS #### [facility] [address] [address] [address] Sarmad Patino GLYCOHEMOGLOBIN A1Con 2022 ADA RECOMMENDATION SEE BELOW Normal [facility] Comment on above: Result Comment: ADA RECOMMENDED LIMIT 4.0 - 6.0 ADA THERAPEUTIC TARGET < 7.0 ACTION SUGGESTED > 7.0 Performed By: #### D DAVIDSON, MG, PHOS, CMP, LIPID, URIC #### [facility] [address] [address] [address] Sarmad Patino Glucose [Mass/Vol] 105 mg/dL Normal [facility] Comment on above: Performed By: #### D DAVIDSON, MG, PHOS, CMP, LIPID, URIC #### [facility] [address] [address] [address] Sarmad Patino HbA1c (Bld) [Mass fraction] 5.3 % Normal 4.5-6.2 [facility] Comment on above: Performed By: #### D DAVIDSON, MG, PHOS, CMP, LIPID, URIC #### [facility] [address] [place] [address] Dr. Sarmad Patino MAGNESIUMon 07-08-2022 Magnesium [Mass/Vol] 1.8 mg/dL Normal 1.8-2.4 [facility] Comment on above: Performed By: #### U JUVE, LIPID, MG, CMP, DBIL, PHOS #### [facility] [address] [place] [address] Dr. Sarmad Patino PHOSPHORUSon 07-08-2022 Phosphate [Mass/Vol] 3.8 mg/dL Normal 2.6-4.7 [facility] Comment on above: Performed By: #### U JUVE, LIPID, MG, CMP, DBIL, PHOS #### [facility] [address] [place] [address] Dr. Sarmad Patino PROF 14(COMP METB)on 023 Albumin [Mass/Vol] 3.7 g/dL Normal 3.4-5.0 [facility] Comment on above: Performed By: #### U JUVE, LIPID, MG, CMP, DBIL, PHOS #### [facility] [address] [place] [address] Dr. Sarmad Patino Albumin/Globulin [Mass ratio] 1.1 {ratio} Normal [facility] Comment on above: Performed By: #### U JUVE, LIPID, MG, CMP, DBIL, PHOS #### [facility] [address] [place] [address] Dr. Sarmad Patino ALP [Catalytic activity/Vol] 124 U/L Critically high 46-116 [facility] Comment on above: Performed By: #### U JUVE, LIPID, MG, CMP, DBIL, PHOS #### [facility] [address] [place] [address] Dr. Sarmad Patino ALT [Catalytic activity/Vol] 20 U/L Normal 14-59 [facility] Comment on above: Performed By: #### U JUVE, LIPID, MG, CMP, DBIL, PHOS #### [facility] [address] [address] [address] Sarmad Patino Anion gap [Moles/Vol] 11.5 mmol/L Normal [facility] Comment on above: Performed By: #### U JUVE, LIPID, MG, CMP, DBIL, PHOS #### [facility] [address] [address] [address] Sarmad Patino AST [Catalytic activity/Vol] 12 U/L Critically low 15-37 [facility] Comment on above: Performed By: #### U JUVE, LIPID, MG, CMP, DBIL, PHOS #### [facility] [address] [address] [address] Sarmad Patino Bilirubin [Mass/Vol] 0.5 mg/dL Normal 0.2-1.0 [facility] Comment on above: Performed By: #### U JUVE, LIPID, MG, CMP, DBIL, PHOS #### [facility] [address] [place] [address] Dr. Sarmad Patino Calcium [Mass/Vol] 9.6 mg/dL Normal 8.5-10.1 [facility] Comment on above: Performed By: #### U JUVE, LIPID, MG, CMP, DBIL, PHOS #### [facility] [address] [place] [address] Dr. Sarmad Patino Chloride [Moles/Vol] 106 mmol/L Normal 98-107 [facility] Comment on above: Performed By: #### U JUVE, LIPID, MG, CMP, DBIL, PHOS #### [facility] [address] [address] [address] Sarmad Patino CO2 [Moles/Vol] 29.7 mmol/L Normal 21.0-32.0 [facility] Comment on above: Performed By: #### U JUVE, LIPID, MG, CMP, DBIL, PHOS #### [facility] [address] [place] [address] Dr. Sarmad Patino Creatinine [Mass/Vol] 0.77 mg/dL Normal 0.55-1.02 [facility] Comment on above: Performed By: #### U JUVE, LIPID, MG, CMP, DBIL, PHOS #### [facility] [address] [address] [address] Sarmad Patino EGFR-AF DUTCH >60 Normal >=60 [facility] Comment on above: Performed By: #### U JUVE, LIPID, MG, CMP, DBIL, PHOS #### [facility] [address] [address] [address] Sarmad Patino EGFR-NON AF DUTCH >60 Normal >=60 [facility] Comment on above: Performed By: #### U JUVE, LIPID, MG, CMP, DBIL, PHOS #### [facility] [address] [place] [address] Dr. Sarmad Patino Globulin (S) [Mass/Vol] 3.4 g/dL Normal [facility] Comment on above: Performed By: #### U JUVE, LIPID, MG, CMP, DBIL, PHOS #### [facility] [address] [address] [address] Sarmad Patino Glucose [Mass/Vol] 97 mg/dL Normal 74-106 [facility] Comment on above: Performed By: #### U JUVE, LIPID, MG, CMP, DBIL, PHOS #### [facility] [address] [place] [address] Dr. Sarmad Patino Potassium [Moles/Vol] 4.2 mmol/L Normal 3.5-5.1 [facility] Comment on above: Performed By: #### U JUVE, LIPID, MG, CMP, DBIL, PHOS #### [facility] [address] [address] [address] Sarmad Patino Protein [Mass/Vol] 7.1 g/dL Normal 6.4-8.2 [facility] Comment on above: Performed By: #### U JUVE, LIPID, MG, CMP, DBIL, PHOS #### [facility] [address] [address] [address] Sarmad Patino Sodium [Moles/Vol] 143 mmol/L Normal 136-145 [facility] Comment on above: Performed By: #### U JUVE, LIPID, MG, CMP, DBIL, PHOS #### [facility] [address] [place] [address] Dr. Sarmad Patino Urea nitrogen [Mass/Vol] 26.0 mg/dL Critically high 7.0-18.0 [facility] Comment on above: Performed By: #### U JUVE, LIPID, MG, CMP, DBIL, PHOS #### [facility] [address] [place] [address] Dr. Sarmad Patino Urea nitrogen/Creatinine [Mass ratio] 33.8 mg/mg Normal [facility] Comment on above: Performed By: #### U JUVE, LIPID, MG, CMP, DBIL, PHOS #### [facility] [address] [place] [address] Dr. Sarmad Patino URIC ACID SERUMon 07-08-2022 Urate [Mass/Vol] 4.7 mg/dL Normal 2.6-6.0 [facility] Comment on above: Performed By: #### U JUVE, LIPID, MG, CMP, DBIL, PHOS #### [facility] [address] [place] [address] Dr. Sarmad Patino FK506 (TACROLIMUS) WHOLE BLO ODon 06-13-2022 Tacrolimus (FK506), Blood 3.0 ng/mL Normal 2.0-20.0 [facility] Comment on above: Result Comment: Trou gh (immediately following transplant) 15.0 . Trough (steady state, 2 weeks or more after transplant): 3.0 - 8.0 . Performed by LC-MS/MS technology. Performed By: #### D DAVIDSON, MG, PHOS, CMP, LIPID, URIC #### [facility] [address] [place] [address] Dr. Sarmad Patino BK VIRUS PCR QUANTon 023 BKV DNA QUANT PCR PLASMA Negative Normal Negative [facility] Comment on above: Result Comment: No B K DNA detected. . The linear range of the assay is 22 - 100,000,000 IU/mL. Performed By: #### B KVIRUS #### [facility] [address] [place] [address] Dr. Sarmad Patino Log10 BKV DNA Plasma Normal [facility] Comment on above: Performed By: #### B KVIRUS #### [facility] [address] [address] [address] Sarmad Patino BILIRUBIN CONJUGATED (DIRECT )on 06-10-2022 BILI, CONJUGATED 0.1 mg/dL Normal 0.0-0.2 [facility] Comment on above: Performed By: #### U JUVE, LIPID, MG, CMP, DBIL, PHOS #### [facility] [address] [address] [address] Sarmad Patino GLYCOHEMOGLOBIN A1Con 2022 ADA RECOMMENDATION SEE BELOW Normal [facility] Comment on above: Result Comment: ADA RECOMMENDED LIMIT 4.0 - 6.0 ADA THERAPEUTIC TARGET < 7.0 ACTION SUGGESTED > 7.0 Performed By: #### D DAVIDSON, MG, PHOS, CMP, LIPID, URIC #### [facility] [address] [place] [address] Dr. Sarmad Patino Glucose [Mass/Vol] 114 mg/dL Normal [facility] Comment on above: Performed By: #### D DAVIDSON, MG, PHOS, CMP, LIPID, URIC #### [facility] [address] [place] [address] Dr. Sarmad Patino HbA1c (Bld) [Mass fraction] 5.6 % Normal 4.5-6.2 [facility] Comment on above: Performed By: #### D DAVIDSON, MG, PHOS, CMP, LIPID, URIC #### [facility] [address] [place] [address] Dr. Sarmad Patino MAGNESIUMon 06-10-2022 Magnesium [Mass/Vol] 1.6 mg/dL Critically low 1.8-2.4 [facility] Comment on above: Performed By: #### U JUVE, LIPID, MG, CMP, DBIL, PHOS #### [facility] [address] [place] [address] Dr. Sarmad Patino PROF 14(COMP METB)on 023 Albumin [Mass/Vol] 3.7 g/dL Normal 3.4-5.0 [facility] Comment on above: Performed By: #### U JUVE, LIPID, MG, CMP, DBIL, PHOS #### [facility] [address] [address] [address] Sarmad Patino Albumin/Globulin [Mass ratio] 1.1 {ratio} Normal [facility] Comment on above: Performed By: #### U JUVE, LIPID, MG, CMP, DBIL, PHOS #### [facility] [address] [address] [address] Sarmad Patino ALP [Catalytic activity/Vol] 142 U/L Critically high 46-116 [facility] Comment on above: Performed By: #### U JUVE, LIPID, MG, CMP, DBIL, PHOS #### [facility] [address] [place] [address] Dr. Sarmad Patino ALT [Catalytic activity/Vol] 29 U/L Normal 14-59 [facility] Comment on above: Performed By: #### U JUVE, LIPID, MG, CMP, DBIL, PHOS #### [facility] [address] [place] [address] Dr. Sarmad Patino Anion gap [Moles/Vol] 11.1 mmol/L Normal [facility] Comment on above: Performed By: #### U JUVE, LIPID, MG, CMP, DBIL, PHOS #### [facility] [address] [place] [address] Dr. Sarmad Patino AST [Catalytic activity/Vol] 19 U/L Normal 15-37 [facility] Comment on above: Performed By: #### U JUVE, LIPID, MG, CMP, DBIL, PHOS #### [facility] [address] [place] [address] Dr. Sarmad Patino Bilirubin [Mass/Vol] 0.6 mg/dL Normal 0.2-1.0 [facility] Comment on above: Performed By: #### U JVUE, LIPID, MG, CMP, DBIL, PHOS #### [facility] [address] [place] [address] Dr. Sarmad Patino Calcium [Mass/Vol] 9.8 mg/dL Normal 8.5-10.1 [facility] Comment on above: Performed By: #### U JUVE, LIPID, MG, CMP, DBIL, PHOS #### [facility] [address] [address] [address] Sarmad Patino Chloride [Moles/Vol] 103 mmol/L Normal 98-107 [facility] Comment on above: Performed By: #### U JUVE, LIPID, MG, CMP, DBIL, PHOS #### [facility] [address] [address] [address] Sarmad Patino CO2 [Moles/Vol] 30.7 mmol/L Normal 21.0-32.0 [facility] Comment on above: Performed By: #### U JUVE, LIPID, MG, CMP, DBIL, PHOS #### [facility] [address] [address] [address] Sarmad Patino Creatinine [Mass/Vol] 0.79 mg/dL Normal 0.55-1.02 [facility] Comment on above: Performed By: #### U JUVE, LIPID, MG, CMP, DBIL, PHOS #### [facility] [address] [address] [address] Sarmad Patino EGFR-AF DUTCH >60 Normal >=60 [facility] Comment on above: Performed By: #### U JUVE, LIPID, MG, CMP, DBIL, PHOS #### [facility] [address] [address] [address] Sarmad Patino EGFR-NON AF DUTCH >60 Normal >=60 [facility] Comment on above: Performed By: #### U JUVE, LIPID, MG, CMP, DBIL, PHOS #### [facility] [address] [address] [address] Sarmad Patino Globulin (S) [Mass/Vol] 3.4 g/dL Normal [facility] Comment on above: Performed By: #### U JUVE, LIPID, MG, CMP, DBIL, PHOS #### [facility] [address] [address] [address] Sarmad Patino Glucose [Mass/Vol] 94 mg/dL Normal 74-106 [facility] Comment on above: Performed By: #### U JUVE, LIPID, MG, CMP, DBIL, PHOS #### [facility] [address] [place] [address] Dr. Sarmad Patino Potassium [Moles/Vol] 3.8 mmol/L Normal 3.5-5.1 [facility] Comment on above: Performed By: #### U JUVE, LIPID, MG, CMP, DBIL, PHOS #### [facility] [address] [place] [address] Dr. Sarmad Patino Protein [Mass/Vol] 7.1 g/dL Normal 6.4-8.2 [facility] Comment on above: Performed By: #### U JUVE, LIPID, MG, CMP, DBIL, PHOS #### [facility] [address] [place] [address] Dr. Sarmad Patino Sodium [Moles/Vol] 141 mmol/L Normal 136-145 [facility] Comment on above: Performed By: #### U JUVE, LIPID, MG, CMP, DBIL, PHOS #### [facility] [address] [place] [address] Dr. Sarmad Patino Urea nitrogen [Mass/Vol] 17.0 mg/dL Normal 7.0-18.0 [facility] Comment on above: Performed By: #### U JUVE, LIPID, MG, CMP, DBIL, PHOS #### [facility] [address] [place] [address] Dr. Sarmad Patino Urea nitrogen/Creatinine [Mass ratio] 21.5 mg/mg Normal [facility] Comment on above: Performed By: #### U JUVE, LIPID, MG, CMP, DBIL, PHOS #### [facility] [address] [place] [address] Dr. Sarmad Patino URIC ACID SERUMon 06-10-2022 Urate [Mass/Vol] 5.1 mg/dL Normal 2.6-6.0 [facility] Comment on above: Performed By: #### U JUVE, LIPID, MG, CMP, DBIL, PHOS #### [facility] [address] [place] [address] Dr. Sarmad Patino BK VIRUS PCR QUANTon 023 BKV DNA QUANT PCR PLASMA Negative Normal Negative [facility] Comment on above: Result Comment: No B K DNA detected. . The linear range of the assay is 22 - 100,000,000 IU/mL. Performed By: #### U JUVE, LIPID, MG, CMP, DBIL, PHOS #### [facility] [address] [place] [address] Dr. Sarmad Patino Log10 BKV DNA Plasma Normal [facility] Comment on above: Performed By: #### U JUVE, LIPID, MG, CMP, DBIL, PHOS #### [facility] [address] [address] [address] Sarmad Patino FK506 (TACROLIMUS) WHOLE BLO ODon 05-13-2022 Tacrolimus (FK506), Blood 4.1 ng/mL Normal 2.0-20.0 [facility] Comment on above: Result Comment: Trou gh (immediately following transplant) 15.0 . Trough (steady state, 2 weeks or more after transplant): 3.0 - 8.0 . Performed by LC-MS/MS technology. Performed By: #### U JUVE, LIPID, MG, CMP, DBIL, PHOS #### [facility] [address] [address] [address] Sarmad Patino BILIRUBIN CONJUGATED (DIRECT )on 05-10-2022 BILI, CONJUGATED 0.1 mg/dL Normal 0.0-0.2 [facility] Comment on above: Performed By: #### D DAVIDSON, MG, PHOS, CMP, LIPID, URIC #### [facility] [address] [address] [address] Sarmad Patino GLYCOHEMOGLOBIN A1Con 2022 ADA RECOMMENDATION SEE BELOW Normal [facility] Comment on above: Result Comment: ADA RECOMMENDED LIMIT 4.0 - 6.0 ADA THERAPEUTIC TARGET < 7.0 ACTION SUGGESTED > 7.0 Performed By: #### D DAVIDSON, MG, PHOS, CMP, LIPID, URIC #### [facility] [address] [place] [address] Dr. Sarmad Patino Glucose [Mass/Vol] 108 mg/dL Normal [facility] Comment on above: Performed By: #### D DAVIDSON, MG, PHOS, CMP, LIPID, URIC #### [facility] [address] [address] [address] Sarmad Patino HbA1c (Bld) [Mass fraction] 5.4 % Normal 4.5-6.2 [facility] Comment on above: Performed By: #### D DAVIDSON, MG, PHOS, CMP, LIPID, URIC #### [facility] [address] [place] [address] Dr. Sarmad Patino MAGNESIUMon 05-10-2022 Magnesium [Mass/Vol] 1.9 mg/dL Normal 1.8-2.4 [facility] Comment on above: Performed By: #### U JUVE, LIPID, MG, CMP, DBIL, PHOS #### [facility] [address] [place] [address] Dr. Sarmad Patino PROF 14(COMP METB)on 023 Albumin [Mass/Vol] 3.9 g/dL Normal 3.4-5.0 [facility] Comment on above: Performed By: #### D DAVIDSON, MG, PHOS, CMP, LIPID, URIC #### [facility] [address] [place] [address] Dr. Sarmad Patino Albumin/Globulin [Mass ratio] 1.2 {ratio} Normal [facility] Comment on above: Performed By: #### D DAVIDSON, MG, PHOS, CMP, LIPID, URIC #### [facility] [address] [address] [address] Sarmad Patino ALP [Catalytic activity/Vol] 114 U/L Normal 46-116 [facility] Comment on above: Performed By: #### D DAVIDSON, MG, PHOS, CMP, LIPID, URIC #### [facility] [address] [place] [address] Dr. Sarmad Patino ALT [Catalytic activity/Vol] 18 U/L Normal 14-59 [facility] Comment on above: Performed By: #### D DAVIDSON, MG, PHOS, CMP, LIPID, URIC #### [facility] [address] [place] [address] Dr. Sarmad Patino Anion gap [Moles/Vol] 15.9 mmol/L Normal [facility] Comment on above: Performed By: #### D DAVIDSON, MG, PHOS, CMP, LIPID, URIC #### [facility] [address] [address] [address] Sarmad Patino AST [Catalytic activity/Vol] 17 U/L Normal 15-37 [facility] Comment on above: Performed By: #### D DAVIDSON, MG, PHOS, CMP, LIPID, URIC #### [facility] [address] [address] [address] Sarmad Patino Bilirubin [Mass/Vol] 0.4 mg/dL Normal 0.2-1.0 [facility] Comment on above: Performed By: #### D DAVIDSON, MG, PHOS, CMP, LIPID, URIC #### [facility] [address] [place] [address] Dr. Sarmad Patino Calcium [Mass/Vol] 9.8 mg/dL Normal 8.5-10.1 [facility] Comment on above: Performed By: #### D DAVIDSON, MG, PHOS, CMP, LIPID, URIC #### [facility] [address] [address] [address] Sarmad Patino Chloride [Moles/Vol] 103 mmol/L Normal 98-107 [facility] Comment on above: Performed By: #### D DAVIDSON, MG, PHOS, CMP, LIPID, URIC #### [facility] [address] [address] [address] Sarmad Patino CO2 [Moles/Vol] 29.2 mmol/L Normal 21.0-32.0 [facility] Comment on above: Performed By: #### D DAVIDSON, MG, PHOS, CMP, LIPID, URIC #### [facility] [address] [address] [address] Sarmad Patino Creatinine [Mass/Vol] 0.74 mg/dL Normal 0.55-1.02 [facility] Comment on above: Performed By: #### D DAVIDSON, MG, PHOS, CMP, LIPID, URIC #### [facility] [address] [address] [address] Sarmad Patino EGFR-AF DUTCH >60 Normal >=60 [facility] Comment on above: Performed By: #### D DAVIDSON, MG, PHOS, CMP, LIPID, URIC #### [facility] [address] [address] [address] Sarmad Patino EGFR-NON AF DUTCH >60 Normal >=60 [facility] Comment on above: Performed By: #### D DAVIDSON, MG, PHOS, CMP, LIPID, URIC #### [facility] [address] [address] [address] Sarmad Patino Globulin (S) [Mass/Vol] 3.2 g/dL Normal [facility] Comment on above: Performed By: #### D DAVIDSON, MG, PHOS, CMP, LIPID, URIC #### [facility] [address] [address] [address] Sarmad Patino Glucose [Mass/Vol] 94 mg/dL Normal 74-106 [facility] Comment on above: Performed By: #### D DAVIDSON, MG, PHOS, CMP, LIPID, URIC #### [facility] [address] [address] [address] Sarmad Patino Potassium [Moles/Vol] 4.1 mmol/L Normal 3.5-5.1 [facility] Comment on above: Performed By: #### D DAVIDSON, MG, PHOS, CMP, LIPID, URIC #### [facility] [address] [address] [address] Sarmad Patino Protein [Mass/Vol] 7.1 g/dL Normal 6.4-8.2 [facility] Comment on above: Performed By: #### D DAVIDSON, MG, PHOS, CMP, LIPID, URIC #### [facility] [address] [address] [address] Sarmad Patino Sodium [Moles/Vol] 144 mmol/L Normal 136-145 [facility] Comment on above: Performed By: #### D DAVIDSON, MG, PHOS, CMP, LIPID, URIC #### [facility] [address] [address] [address] Sarmad Patino Urea nitrogen [Mass/Vol] 18.0 mg/dL Normal 7.0-18.0 [facility] Comment on above: Performed By: #### D DAVIDSON, MG, PHOS, CMP, LIPID, URIC #### [facility] [address] [address] [address] Sarmad Patino Urea nitrogen/Creatinine [Mass ratio] 24.3 mg/mg Normal [facility] Comment on above: Performed By: #### D DAVIDSON, MG, PHOS, CMP, LIPID, URIC #### [facility] [address] [address] [address] Sarmad Patino URIC ACID SERUMon 05-10-2022 Urate [Mass/Vol] 5.1 mg/dL Normal 2.6-6.0 [facility] Comment on above: Performed By: #### U JUVE, LIPID, MG, CMP, DBIL, PHOS #### [facility] [address] [place] [address] Dr. Sarmad Patino MYCOPHENOLIC ACIDon 04-17-19 Mycophenolic Acid 1.2 ug/mL Normal 1.0-3.5 [facility] Comment on above: Performed By: #### D DAVIDSON, MG, PHOS, CMP, LIPID, URIC #### [facility] [address] [place] [address] Dr. Sarmad Patino Mycophenolic Acid Glucuronide 37 ug/mL Normal 15-125 [facility] Comment on above: Result Comment: [facility] 's Reference Range: 35-100 mcg/mL. Performed By: #### D DAVIDSON, MG, PHOS, CMP, LIPID, URIC #### [facility] [address] [place] [address] Dr. Sarmad Patino FK506 (TACROLIMUS) WHOLE BLO ODon 04-10-2022 Tacrolimus (FK506), Blood 4.2 ng/mL Normal 2.0-20.0 [facility] Comment on above: Result Comment: Trou gh (immediately following transplant) 15.0 . Trough (steady state, 2 weeks or more after transplant): 3.0 - 8.0 . Performed by LC-MS/MS technology. Performed By: #### D DAVIDSON, MG, PHOS, CMP, LIPID, URIC #### [facility] [address] [address] [address] Sarmad Patino BILIRUBIN CONJUGATED (DIRECT )on 04-08-2022 BILI, CONJUGATED 0.1 mg/dL Normal 0.0-0.2 [facility] Comment on above: Performed By: #### U JUVE, LIPID, MG, CMP, DBIL, PHOS #### [facility] [address] [address] [address] Sarmad Patino CBC AUTO DIFFon 04-08-2022 BASO # 0.0 103/ul Normal 0.0-0.1 [facility] Comment on above: Performed By: #### D DAVIDSON, MG, PHOS, CMP, LIPID, URIC #### [facility] [address] [place] [address] Dr. Sarmad Patino Basophils/100 WBC (Bld) 0.3 % Normal 0.2-2.0 [facility] Comment on above: Performed By: #### D DAVIDSON, MG, PHOS, CMP, LIPID, URIC #### [facility] [address] [place] [address] Dr. Sarmad Patino EO # 0.1 103/ul Normal 0.0-0.7 [facility] Comment on above: Performed By: #### D DAVIDSON, MG, PHOS, CMP, LIPID, URIC #### [facility] [address] [place] [address] Dr. Sarmad Patino Eosinophils/100 WBC (Bld) 1.4 % Normal 0.9-7.0 [facility] Comment on above: Performed By: #### D DAVIDSON, MG, PHOS, CMP, LIPID, URIC #### [facility] [address] [place] [address] Dr. Sarmad Patino Erythrocyte distribution width (RBC) [Ratio] 15.8 % Critically high 11.0-15.0 [facility] Comment on above: Performed By: #### D DAVIDSON, MG, PHOS, CMP, LIPID, URIC #### [facility] [address] [place] [address] Dr. Sarmad Patino Hematocrit (Bld) [Volume fraction] 43.0 % Normal 36.0-48.0 [facility] Comment on above: Performed By: #### D DAVIDSON, MG, PHOS, CMP, LIPID, URIC #### [facility] [address] [place] [address] Dr. Sarmad Patino Hemoglobin (Bld) [Mass/Vol] 15.0 g/dL Normal 12.0-16.0 [facility] Comment on above: Performed By: #### D DAVIDSON, MG, PHOS, CMP, LIPID, URIC #### [facility] [address] [address] [address] Sarmad Patino IG # 0.01 10e3/ul Normal 0.00-0.03 [facility] Comment on above: Performed By: #### D DAVIDSON, MG, PHOS, CMP, LIPID, URIC #### [facility] [address] [place] [address] Dr. Sarmad Patino IG % 0.1 % Normal 0.0-0.5 [facility] Comment on above: Performed By: #### D DAVIDSON, MG, PHOS, CMP, LIPID, URIC #### [facility] [address] [place] [address] Dr. Sarmad Patino LYMPH # 1.3 103/ul Normal 1.2-3.8 [facility] Comment on above: Performed By: #### D DAVIDSON, MG, PHOS, CMP, LIPID, URIC #### [facility] [address] [place] [address] Dr. Sarmad Patino Lymphocytes/100 WBC (Bld) 18.3 % Critically low 20.5-60.0 [facility] Comment on above: Performed By: #### D DAVIDSON, MG, PHOS, CMP, LIPID, URIC #### [facility] [address] [place] [address] Dr. Sarmad Patino MANUAL DIFF REQ NO Normal [facility] Comment on above: Performed By: #### D DAVIDSON, MG, PHOS, CMP, LIPID, URIC #### [facility] [address] [place] [address] Dr. Sarmad Patino MCH (RBC) [Entitic mass] 29.7 pg Normal 26.7-34.0 [facility] Comment on above: Performed By: #### D DAVIDSON, MG, PHOS, CMP, LIPID, URIC #### [facility] [address] [place] [address] Dr. Sarmad Patino MCHC (RBC) [Mass/Vol] 34.9 g/dL Normal 29.9-35.2 [facility] Comment on above: Performed By: #### D DAVIDSON, MG, PHOS, CMP, LIPID, URIC #### [facility] [address] [place] [address] Dr. Sarmad Patino MCV (RBC) [Entitic vol] 85.1 fL Normal 81.0-99.0 [facility] Comment on above: Performed By: #### D DAVIDSON, MG, PHOS, CMP, LIPID, URIC #### [facility] [address] [place] [address] Dr. Sarmad Patino MONO # 0.7 103/ul Normal 0.3-0.8 [facility] Comment on above: Performed By: #### D DAVIDSON, MG, PHOS, CMP, LIPID, URIC #### [facility] [address] [place] [address] Dr. Sarmad Patino Monocytes/100 WBC (Bld) 9.8 % Normal 1.7-12.0 [facility] Comment on above: Performed By: #### D DAVIDSON, MG, PHOS, CMP, LIPID, URIC #### [facility] [address] [place] [address] Dr. Sarmad Patino NEUT # 5.1 103/ul Normal 1.4-6.5 [facility] Comment on above: Performed By: #### D DAVIDSON, MG, PHOS, CMP, LIPID, URIC #### [facility] [address] [place] [address] Dr. Sarmad Patino Neutrophils/100 WBC (Bld) 70.1 % Normal 43.0-75.0 [facility] Comment on above: Performed By: #### D DAVIDSON, MG, PHOS, CMP, LIPID, URIC #### [facility] [address] [place] [address] Dr. Sarmad Patino Platelet mean volume (Bld) [Entitic vol] 10.4 fL Normal 9.5-13.5 [facility] Comment on above: Performed By: #### D DAVIDSON, MG, PHOS, CMP, LIPID, URIC #### [facility] [address] [address] [address] Sarmad Patino PLT 229 103/ul Normal 150-450 [facility] Comment on above: Performed By: #### D DAVIDSON, MG, PHOS, CMP, LIPID, URIC #### [facility] [address] [address] [address] Sarmad Patino RBC 5.05 106/ul Normal 4.20-5.40 [facility] Comment on above: Performed By: #### D DAVIDSON, MG, PHOS, CMP, LIPID, URIC #### [facility] [address] [place] [address] Dr. Sarmad Patino WBC 7.2 103/ul Normal 4.0-11.0 [facility] Comment on above: Performed By: #### D DAVIDSON, MG, PHOS, CMP, LIPID, URIC #### [facility] [address] [place] [address] Dr. Sarmad Patino LIPID PROFILEon 04-08-2022 CHOL-HDL RATIO NORM SEE BELOW Normal [facility] Comment on above: Result Comment: 3.3 - 4.4 LOW RISK 4.4 - 7.1 AVERAGE RISK 7.1 - 11.0 MODERATE RISK >11.0 HIGH RISK Performed By: #### U JUVE, LIPID, MG, CMP, DBIL, PHOS #### [facility] [address] [address] [address] Sarmad Patino Cholesterol [Mass/Vol] 134 mg/dL Normal <=200 [facility] Comment on above: Performed By: #### U JUVE, LIPID, MG, CMP, DBIL, PHOS #### [facility] [address] [address] [address] Sarmad Patino Cholesterol in HDL [Mass/Vol] 55 mg/dL Normal 40-60 [facility] Comment on above: Performed By: #### U JUVE, LIPID, MG, CMP, DBIL, PHOS #### [facility] [address] [address] [address] Sarmad Patino Cholesterol in LDL [Mass/Vol] 56.6 mg/dL Normal [facility] Comment on above: Performed By: #### U JUVE, LIPID, MG, CMP, DBIL, PHOS #### [facility] [address] [address] [address] Sarmad Patino Cholesterol.total/Cho lesterol in HDL [Mass ratio] 2.4 {ratio} Normal [facility] Comment on above: Performed By: #### U JUVE, LIPID, MG, CMP, DBIL, PHOS #### [facility] [address] [address] [address] Sarmad Patino HDL NORMAL > or = 60 mg/dl - LO W CARDIOVASCULAR RISK <40 mg/dl - HIGH CARDIOVASCULAR RISK Normal [facility] Comment on above: Performed By: #### U JUVE, LIPID, MG, CMP, DBIL, PHOS #### [facility] [address] [address] [address] Sarmad Patino LDL CALC NORMAL SEE BELOW Normal [facility] Comment on above: Result Comment: <100 mg/dl OPTIMAL 100 - 129 mg/dl NEAR OR ABOVE OPTIMAL 130 - 159 mg/dl BORDERLINE HIGH 160 - 189 mg/dl HIGH >190 mg/dl VERY HIGH Performed By: #### U JUVE, LIPID, MG, CMP, DBIL, PHOS #### [facility] [address] [address] [address] Sarmad Patino Triglyceride [Mass/Vol] 112 mg/dL Normal <=150 [facility] Comment on above: Performed By: #### U JUVE, LIPID, MG, CMP, DBIL, PHOS #### [facility] [address] [address] [address] Sarmad Patino VLDL CALC 22.4 mg/dL Normal [facility] Comment on above: Performed By: #### U JUVE, LIPID, MG, CMP, DBIL, PHOS #### [facility] [address] [address] [address] Sarmad Patino MAGNESIUMon 04-08-2022 Magnesium [Mass/Vol] 1.8 mg/dL Normal 1.8-2.4 [facility] Comment on above: Performed By: #### U JUVE, LIPID, MG, CMP, DBIL, PHOS #### [facility] [address] [place] [address] Dr. Sarmad Patino PHOSPHORUSon 04-08-2022 Phosphate [Mass/Vol] 3.9 mg/dL Normal 2.6-4.7 [facility] Comment on above: Performed By: #### U JUVE, LIPID, MG, CMP, DBIL, PHOS #### [facility] [address] [place] [address] Dr. Sarmad Patino PROF 14(COMP METB)on 023 Albumin [Mass/Vol] 4.0 g/dL Normal 3.4-5.0 [facility] Comment on above: Performed By: #### U JUVE, LIPID, MG, CMP, DBIL, PHOS #### [facility] [address] [place] [address] Dr. Sarmad Patino Albumin/Globulin [Mass ratio] 1.3 {ratio} Normal [facility] Comment on above: Performed By: #### U JUVE, LIPID, MG, CMP, DBIL, PHOS #### [facility] [address] [place] [address] Dr. Sarmad Patnio ALP [Catalytic activity/Vol] 108 U/L Normal 46-116 [facility] Comment on above: Performed By: #### U JUVE, LIPID, MG, CMP, DBIL, PHOS #### [facility] [address] [place] [address] Dr. Sarmad Patino ALT [Catalytic activity/Vol] 15 U/L Normal 14-59 [facility] Comment on above: Performed By: #### U JUVE, LIPID, MG, CMP, DBIL, PHOS #### [facility] [address] [place] [address] Dr. Sarmad Patino Anion gap [Moles/Vol] 14.3 mmol/L Normal [facility] Comment on above: Performed By: #### U JUVE, LIPID, MG, CMP, DBIL, PHOS #### [facility] [address] [place] [address] Dr. Sarmad Patino AST [Catalytic activity/Vol] 15 U/L Normal 15-37 [facility] Comment on above: Performed By: #### U JUVE, LIPID, MG, CMP, DBIL, PHOS #### [facility] [address] [place] [address] Dr. Sarmad Patino Bilirubin [Mass/Vol] 0.5 mg/dL Normal 0.2-1.0 [facility] Comment on above: Performed By: #### U JUVE, LIPID, MG, CMP, DBIL, PHOS #### [facility] [address] [place] [address] Dr. Sarmad Patino Calcium [Mass/Vol] 9.7 mg/dL Normal 8.5-10.1 [facility] Comment on above: Performed By: #### U JUVE, LIPID, MG, CMP, DBIL, PHOS #### [facility] [address] [place] [address] Dr. Sarmad Patino Chloride [Moles/Vol] 105 mmol/L Normal 98-107 [facility] Comment on above: Performed By: #### U JUVE, LIPID, MG, CMP, DBIL, PHOS #### [facility] [address] [place] [address] Dr. Sarmad Patino CO2 [Moles/Vol] 26.6 mmol/L Normal 21.0-32.0 [facility] Comment on above: Performed By: #### U JUVE, LIPID, MG, CMP, DBIL, PHOS #### [facility] [address] [place] [address] Dr. Sarmad Patino Creatinine [Mass/Vol] 0.80 mg/dL Normal 0.55-1.02 [facility] Comment on above: Performed By: #### U JUVE, LIPID, MG, CMP, DBIL, PHOS #### [facility] [address] [place] [address] Dr. Sarmad Patino EGFR-AF DUTCH >60 Normal >=60 [facility] Comment on above: Performed By: #### U JUVE, LIPID, MG, CMP, DBIL, PHOS #### [facility] [address] [place] [address] Dr. Sarmad Patino EGFR-NON AF DUTCH >60 Normal >=60 [facility] Comment on above: Performed By: #### U JUVE, LIPID, MG, CMP, DBIL, PHOS #### [facility] [address] [place] [address] Dr. Sarmad Patino Globulin (S) [Mass/Vol] 3.0 g/dL Normal [facility] Comment on above: Performed By: #### U JUVE, LIPID, MG, CMP, DBIL, PHOS #### [facility] [address] [place] [address] Dr. Sarmad Patino Glucose [Mass/Vol] 99 mg/dL Normal 74-106 [facility] Comment on above: Performed By: #### U JUVE, LIPID, MG, CMP, DBIL, PHOS #### [facility] [address] [place] [address] Dr. Sarmad Patino Potassium [Moles/Vol] 3.9 mmol/L Normal 3.5-5.1 [facility] Comment on above: Performed By: #### U JUVE, LIPID, MG, CMP, DBIL, PHOS #### [facility] [address] [place] [address] Dr. Sarmad Patino Protein [Mass/Vol] 7.0 g/dL Normal 6.4-8.2 [facility] Comment on above: Performed By: #### U JUVE, LIPID, MG, CMP, DBIL, PHOS #### [facility] [address] [place] [address] Dr. Sarmad Patino Sodium [Moles/Vol] 142 mmol/L Normal 136-145 [facility] Comment on above: Performed By: #### U JUVE, LIPID, MG, CMP, DBIL, PHOS #### [facility] [address] [place] [address] Dr. Sarmad Patino Urea nitrogen [Mass/Vol] 14.0 mg/dL Normal 7.0-18.0 [facility] Comment on above: Performed By: #### U JUVE, LIPID, MG, CMP, DBIL, PHOS #### [facility] [address] [address] [address] Sarmad Patino Urea nitrogen/Creatinine [Mass ratio] 17.5 mg/mg Normal [facility] Comment on above: Performed By: #### U JUVE, LIPID, MG, CMP, DBIL, PHOS #### [facility] [address] [address] [address] Sarmad Patino URIC ACID SERUMon 04-08-2022 Urate [Mass/Vol] 5.2 mg/dL Normal 2.6-6.0 [facility] Comment on above: Performed By: #### U JUVE, LIPID, MG, CMP, DBIL, PHOS #### [facility] [address] [address] [address] Sarmad Patino BK VIRUS PCR QUANTon 022 BKV DNA QUANT PCR PLASMA Negative Normal Negative [facility] Comment on above: Result Comment: No B K DNA detected. . The linear range of the assay is 22 - 100,000,000 IU/mL. Performed By: #### D DAVIDSON, MG, PHOS, CMP, LIPID, URIC #### [facility] [address] [address] [address] Sarmad Patino Log10 BKV DNA Plasma Normal [facility] Comment on above: Performed By: #### D DAVIDSON, MG, PHOS, CMP, LIPID, URIC #### [facility] [address] [address] [address] Sarmad Patino FK506 (TACROLIMUS) WHOLE BLO ODon 03-13-2022 Tacrolimus (FK506), Blood 5.0 ng/mL Normal 2.0-20.0 [facility] Comment on above: Result Comment: Trou gh (immediately following transplant) 15.0 . Trough (steady state, 2 weeks or more after transplant): 3.0 - 8.0 . Performed by LC-MS/MS technology. Performed By: #### D DAVIDSON, MG, PHOS, CMP, LIPID, URIC #### [facility] [address] [address] [address] Sarmad Patino GLYCOHEMOGLOBIN A1Con 2021 ADA RECOMMENDATION SEE BELOW Normal [facility] Comment on above: Result Comment: ADA RECOMMENDED LIMIT 4.0 - 6.0 ADA THERAPEUTIC TARGET < 7.0 ACTION SUGGESTED > 7.0 Performed By: #### D DAVIDSON, MG, PHOS, CMP, LIPID, URIC #### [facility] [address] [place] [address] Dr. Sarmad Patino Glucose [Mass/Vol] 111 mg/dL Normal [facility] Comment on above: Performed By: #### D DAVIDSON, MG, PHOS, CMP, LIPID, URIC #### [facility] [address] [place] [address] Dr. Sarmad Patino HbA1c (Bld) [Mass fraction] 5.5 % Normal 4.5-6.2 [facility] Comment on above: Performed By: #### D DAVIDSON, MG, PHOS, CMP, LIPID, URIC #### [facility] [address] [place] [address] Dr. Sarmad Patino LIVER PROFILEon 03-11-2022 Albumin [Mass/Vol] 3.7 g/dL Normal 3.4-5.0 [facility] Comment on above: Performed By: #### D DAVIDSON, MG, PHOS, CMP, LIPID, URIC #### [facility] [address] [place] [address] Dr. Sarmad Patino Albumin/Globulin [Mass ratio] 1.1 {ratio} Normal [facility] Comment on above: Performed By: #### D DAVIDSON, MG, PHOS, CMP, LIPID, URIC #### [facility] [address] [place] [address] Dr. Sarmad Patino ALP [Catalytic activity/Vol] 124 U/L Critically high 46-116 [facility] Comment on above: Performed By: #### D DAVIDSON, MG, PHOS, CMP, LIPID, URIC #### [facility] [address] [place] [address] Dr. Sarmad Patino ALT [Catalytic activity/Vol] 17 U/L Normal 14-59 [facility] Comment on above: Performed By: #### D DAVIDSON, MG, PHOS, CMP, LIPID, URIC #### [facility] [address] [place] [address] Dr. Sarmad Patino AST [Catalytic activity/Vol] 16 U/L Normal 15-37 [facility] Comment on above: Performed By: #### D DAVIDSON, MG, PHOS, CMP, LIPID, URIC #### [facility] [address] [place] [address] Dr. Sarmad Patino BILI, CONJUGATED 0.2 mg/dL Normal 0.0-0.2 [facility] Comment on above: Performed By: #### D DAVIDSON, MG, PHOS, CMP, LIPID, URIC #### [facility] [address] [address] [address] Sarmad Patino Bilirubin [Mass/Vol] 0.6 mg/dL Normal 0.2-1.0 [facility] Comment on above: Performed By: #### D DAVIDSON, MG, PHOS, CMP, LIPID, URIC #### [facility] [address] [place] [address] Dr. Sarmad Patino Globulin (S) [Mass/Vol] 3.4 g/dL Normal [facility] Comment on above: Performed By: #### D DAVIDSON, MG, PHOS, CMP, LIPID, URIC #### [facility] [address] [address] [address] Sarmad Patino Protein [Mass/Vol] 7.1 g/dL Normal 6.4-8.2 [facility] Comment on above: Performed By: #### D DAVIDSON, MG, PHOS, CMP, LIPID, URIC #### [facility] [address] [place] [address] Dr. Sarmad Patino MAGNESIUMon 03-11-2022 Magnesium [Mass/Vol] 1.6 mg/dL Critically low 1.8-2.4 [facility] Comment on above: Performed By: #### D DAVIDSON, MG, PHOS, CMP, LIPID, URIC #### [facility] [address] [place] [address] Dr. Sarmad Patino PHOSPHORUSon 03-11-2022 Phosphate [Mass/Vol] 3.5 mg/dL Normal 2.6-4.7 [facility] Comment on above: Performed By: #### D DAVIDSON, MG, PHOS, CMP, LIPID, URIC #### [facility] [address] [address] [address] Sarmad Patino URIC ACID SERUMon 03-11-2022 Urate [Mass/Vol] 5.3 mg/dL Normal 2.6-6.0 [facility] Comment on above: Performed By: #### D DAVIDSON, MG, PHOS, CMP, LIPID, URIC #### [facility] [address] [address] [address] Sarmad Patino MYCOPHENOLIC ACIDon 02-19-20 Mycophenolic Acid 1.5 ug/mL Normal 1.0-3.5 [facility] Comment on above: Performed By: #### D DAVIDSON, MG, PHOS, CMP, LIPID, URIC #### [facility] [address] [place] [address] Dr. Sarmad Patino Mycophenolic Acid Glucuronide 32 ug/mL Normal 15-125 [facility] Comment on above: Result Comment: [facility] 's Reference Range: 35-100 mcg/mL. Performed By: #### D DAVIDSON, MG, PHOS, CMP, LIPID, URIC #### [facility] [address] [place] [address] Dr. Sarmad Patino BK VIRUS PCR QUANTon 022 BKV DNA QUANT PCR PLASMA Negative Normal Negative [facility] Comment on above: Result Comment: No B K DNA detected. . The linear range of the assay is 22 - 100,000,000 IU/mL. Performed By: #### D DAVIDSON, MG, PHOS, CMP, LIPID, URIC #### [facility] [address] [place] [address] Dr. Sarmad Patino Log10 BKV DNA Plasma Normal [facility] Comment on above: Performed By: #### D DAVIDSON, MG, PHOS, CMP, LIPID, URIC #### [facility] [address] [place] [address] Dr. Sarmad Patino FK506 (TACROLIMUS) WHOLE BLO ODon 02-11-2022 Tacrolimus (FK506), Blood 4.4 ng/mL Normal 2.0-20.0 [facility] Comment on above: Result Comment: Trou gh (immediately following transplant) 15.0 . Trough (steady state, 2 weeks or more after transplant): 3.0 - 8.0 . Performed by LC-MS/MS technology. Performed By: #### U JUVE, LIPID, MG, CMP, DBIL, PHOS #### [facility] [address] [place] [address] Dr. Sarmad Patino BILIRUBIN CONJUGATED (DIRECT )on 02-08-2022 BILI, CONJUGATED 0.1 mg/dL Normal 0.0-0.2 [facility] Comment on above: Performed By: #### D DAVIDSON, MG, PHOS, CMP, LIPID, URIC #### [facility] [address] [place] [address] Dr. Sarmad Patino CBC AUTO DIFFon 02-08-2022 BASO # 0.0 103/ul Normal 0.0-0.1 [facility] Comment on above: Performed By: #### D DAVIDSON, MG, PHOS, CMP, LIPID, URIC #### [facility] [address] [place] [address] Dr. Sarmad Patino Basophils/100 WBC (Bld) 0.3 % Normal 0.2-2.0 [facility] Comment on above: Performed By: #### D DAVIDSON, MG, PHOS, CMP, LIPID, URIC #### [facility] [address] [place] [address] Dr. Sarmad Patino EO # 0.1 103/ul Normal 0.0-0.7 [facility] Comment on above: Performed By: #### D DAVIDSON, MG, PHOS, CMP, LIPID, URIC #### [facility] [address] [place] [address] Dr. Sarmad Patino Eosinophils/100 WBC (Bld) 1.0 % Normal 0.9-7.0 [facility] Comment on above: Performed By: #### D DAVIDSON, MG, PHOS, CMP, LIPID, URIC #### [facility] [address] [place] [address] Dr. Sarmad Patino Erythrocyte distribution width (RBC) [Ratio] 15.9 % Critically high 11.0-15.0 [facility] Comment on above: Performed By: #### D DAVIDSON, MG, PHOS, CMP, LIPID, URIC #### [facility] [address] [place] [address] Dr. Sarmad Patino Hematocrit (Bld) [Volume fraction] 42.2 % Normal 36.0-48.0 [facility] Comment on above: Performed By: #### D DAVIDSON, MG, PHOS, CMP, LIPID, URIC #### [facility] [address] [place] [address] Dr. Sarmad Patino Hemoglobin (Bld) [Mass/Vol] 13.8 g/dL Normal 12.0-16.0 [facility] Comment on above: Performed By: #### D DAVIDSON, MG, PHOS, CMP, LIPID, URIC #### [facility] [address] [place] [address] Dr. Sarmad Patino IG # 0.10 10e3/ul Critically high 0.00-0.03 [facility] Comment on above: Performed By: #### D DAVIDSON, MG, PHOS, CMP, LIPID, URIC #### [facility] [address] [place] [address] Dr. Sarmad Patino IG % 1.1 % Critically high 0.0-0.5 [facility] Comment on above: Performed By: #### D DAVIDSON, MG, PHOS, CMP, LIPID, URIC #### [facility] [address] [place] [address] Dr. Sarmad Patino LYMPH # 1.2 103/ul Normal 1.2-3.8 [facility] Comment on above: Performed By: #### D DAVIDSON, MG, PHOS, CMP, LIPID, URIC #### [facility] [address] [place] [address] Dr. Sarmad Patino Lymphocytes/100 WBC (Bld) 12.6 % Critically low 20.5-60.0 [facility] Comment on above: Performed By: #### D DAVIDSON, MG, PHOS, CMP, LIPID, URIC #### [facility] [address] [place] [address] Dr. Sarmad Patino MANUAL DIFF REQ NO Normal [facility] Comment on above: Performed By: #### D DAVIDSON, MG, PHOS, CMP, LIPID, URIC #### [facility] [address] [address] [address] Sarmad Patino MCH (RBC) [Entitic mass] 28.3 pg Normal 26.7-34.0 [facility] Comment on above: Performed By: #### D DAVIDSON, MG, PHOS, CMP, LIPID, URIC #### [facility] [address] [place] [address] Dr. Sarmad Patino MCHC (RBC) [Mass/Vol] 32.7 g/dL Normal 29.9-35.2 [facility] Comment on above: Performed By: #### D DAVIDSON, MG, PHOS, CMP, LIPID, URIC #### [facility] [address] [place] [address] Dr. Sarmad Patino MCV (RBC) [Entitic vol] 86.7 fL Normal 81.0-99.0 [facility] Comment on above: Performed By: #### D DAVIDSON, MG, PHOS, CMP, LIPID, URIC #### [facility] [address] [place] [address] Dr. Sarmad Patino MONO # 1.0 103/ul Critically high 0.3-0.8 [facility] Comment on above: Performed By: #### D DAVIDSON, MG, PHOS, CMP, LIPID, URIC #### [facility] [address] [place] [address] Dr. Sarmad Patino Monocytes/100 WBC (Bld) 10.7 % Normal 1.7-12.0 [facility] Comment on above: Performed By: #### D DAVIDSON, MG, PHOS, CMP, LIPID, URIC #### [facility] [address] [place] [address] Dr. Sarmad Patino NEUT # 6.9 103/ul Critically high 1.4-6.5 [facility] Comment on above: Performed By: #### D DAVIDSON, MG, PHOS, CMP, LIPID, URIC #### [facility] [address] [place] [address] Dr. Sarmad Patino Neutrophils/100 WBC (Bld) 74.3 % Normal 43.0-75.0 [facility] Comment on above: Performed By: #### D DAVIDSON, MG, PHOS, CMP, LIPID, URIC #### [facility] [address] [address] [address] Sarmad Patino Platelet mean volume (Bld) [Entitic vol] 11.1 fL Normal 9.5-13.5 [facility] Comment on above: Performed By: #### D DAVIDSON, MG, PHOS, CMP, LIPID, URIC #### [facility] [address] [address] [address] Sarmad Patino PLT 307 103/ul Normal 150-450 [facility] Comment on above: Performed By: #### D DAVIDSON, MG, PHOS, CMP, LIPID, URIC #### [facility] [address] [place] [address] Dr. Sarmad Patino RBC 4.87 106/ul Normal 4.20-5.40 [facility] Comment on above: Performed By: #### D DAVIDSON, MG, PHOS, CMP, LIPID, URIC #### [facility] [address] [address] [address] Sarmad Patino WBC 9.3 103/ul Normal 4.0-11.0 [facility] Comment on above: Performed By: #### D DAVIDSON, MG, PHOS, CMP, LIPID, URIC #### [facility] [address] [place] [address] Dr. Sarmad Patino GLYCOHEMOGLOBIN A1Con 2021 ADA RECOMMENDATION SEE BELOW Normal [facility] Comment on above: Result Comment: ADA RECOMMENDED LIMIT 4.0 - 6.0 ADA THERAPEUTIC TARGET < 7.0 ACTION SUGGESTED > 7.0 Performed By: #### D DAVIDSON, MG, PHOS, CMP, LIPID, URIC #### [facility] [address] [place] [address] Dr. Sarmad Patino Glucose [Mass/Vol] 134 mg/dL Normal [facility] Comment on above: Performed By: #### D DAVIDSON, MG, PHOS, CMP, LIPID, URIC #### [facility] [address] [place] [address] Dr. Sarmad Patino HbA1c (Bld) [Mass fraction] 6.3 % Critically high 4.5-6.2 [facility] Comment on above: Performed By: #### D DAVIDSON, MG, PHOS, CMP, LIPID, URIC #### [facility] [address] [address] [address] Sarmad Patino LIPID PROFILEon 02-08-2022 CHOL-HDL RATIO NORM SEE BELOW Normal [facility] Comment on above: Result Comment: 3.3 - 4.4 LOW RISK 4.4 - 7.1 AVERAGE RISK 7.1 - 11.0 MODERATE RISK >11.0 HIGH RISK Performed By: #### D DAVIDSON, MG, PHOS, CMP, LIPID, URIC #### [facility] [address] [address] [address] Sarmad Patino Cholesterol [Mass/Vol] 180 mg/dL Normal <=200 [facility] Comment on above: Performed By: #### D DAVIDSON, MG, PHOS, CMP, LIPID, URIC #### [facility] [address] [address] [address] Sarmad Patino Cholesterol in HDL [Mass/Vol] 58 mg/dL Normal 40-60 [facility] Comment on above: Performed By: #### D DAVIDSON, MG, PHOS, CMP, LIPID, URIC #### [facility] [address] [address] [address] Sarmad Patino Cholesterol in LDL [Mass/Vol] 86.6 mg/dL Normal [facility] Comment on above: Performed By: #### D DAVIDSON, MG, PHOS, CMP, LIPID, URIC #### [facility] [address] [address] [address] Sarmad Patino Cholesterol.total/Cho lesterol in HDL [Mass ratio] 3.1 {ratio} Normal [facility] Comment on above: Performed By: #### D DAVIDSON, MG, PHOS, CMP, LIPID, URIC #### [facility] [address] [address] [address] Sarmad Patino HDL NORMAL > or = 60 mg/dl - LO W CARDIOVASCULAR RISK <40 mg/dl - HIGH CARDIOVASCULAR RISK Normal [facility] Comment on above: Performed By: #### D DAVIDSON, MG, PHOS, CMP, LIPID, URIC #### [facility] [address] [address] [address] Sarmad Patino LDL CALC NORMAL SEE BELOW Normal [facility] Comment on above: Result Comment: <100 mg/dl OPTIMAL 100 - 129 mg/dl NEAR OR ABOVE OPTIMAL 130 - 159 mg/dl BORDERLINE HIGH 160 - 189 mg/dl HIGH >190 mg/dl VERY HIGH Performed By: #### D DAVIDSON, MG, PHOS, CMP, LIPID, URIC #### [facility] [address] [address] [address] Sarmad Patino Triglyceride [Mass/Vol] 177 mg/dL Critically high <=150 [facility] Comment on above: Performed By: #### D DAVIDSON, MG, PHOS, CMP, LIPID, URIC #### [facility] [address] [place] [address] Dr. Sarmad Patino VLDL CALC 35.4 mg/dL Normal [facility] Comment on above: Performed By: #### D DAVIDSON, MG, PHOS, CMP, LIPID, URIC #### [facility] [address] [place] [address] Dr. Sarmad Patino MAGNESIUMon 02-08-2022 Magnesium [Mass/Vol] 1.8 mg/dL Normal 1.8-2.4 [facility] Comment on above: Performed By: #### D DAVIDSON, MG, PHOS, CMP, LIPID, URIC #### [facility] [address] [place] [address] Dr. Sarmad Patino PHOSPHORUSon 02-08-2022 Phosphate [Mass/Vol] 3.3 mg/dL Normal 2.6-4.7 [facility] Comment on above: Performed By: #### D DAVIDSON, MG, PHOS, CMP, LIPID, URIC #### [facility] [address] [place] [address] Dr. Sarmad Patino PROF 14(COMP METB)on 022 Albumin [Mass/Vol] 3.8 g/dL Normal 3.4-5.0 [facility] Comment on above: Performed By: #### D DAVIDSON, MG, PHOS, CMP, LIPID, URIC #### [facility] [address] [place] [address] Dr. Sarmad Patino Albumin/Globulin [Mass ratio] 1.3 {ratio} Normal [facility] Comment on above: Performed By: #### D DAVIDSON, MG, PHOS, CMP, LIPID, URIC #### [facility] [address] [place] [address] Dr. Sarmad Patino ALP [Catalytic activity/Vol] 144 U/L Critically high 46-116 [facility] Comment on above: Performed By: #### D DAVIDSON, MG, PHOS, CMP, LIPID, URIC #### [facility] [address] [place] [address] Dr. Sarmad Patino ALT [Catalytic activity/Vol] 24 U/L Normal 14-59 [facility] Comment on above: Performed By: #### D DAVIDSON, MG, PHOS, CMP, LIPID, URIC #### [facility] [address] [place] [address] Dr. Sarmad Patino Anion gap [Moles/Vol] 13.7 mmol/L Normal [facility] Comment on above: Performed By: #### D DAVIDSON, MG, PHOS, CMP, LIPID, URIC #### [facility] [address] [place] [address] Dr. Sarmad Patino AST [Catalytic activity/Vol] 19 U/L Normal 15-37 [facility] Comment on above: Performed By: #### D DAVIDSON, MG, PHOS, CMP, LIPID, URIC #### [facility] [address] [place] [address] Dr. Sarmad Patino Bilirubin [Mass/Vol] 0.5 mg/dL Normal 0.2-1.0 [facility] Comment on above: Performed By: #### D DAVIDSON, MG, PHOS, CMP, LIPID, URIC #### [facility] [address] [place] [address] Dr. Sarmad Patino Calcium [Mass/Vol] 9.6 mg/dL Normal 8.5-10.1 [facility] Comment on above: Performed By: #### D DAVIDSON, MG, PHOS, CMP, LIPID, URIC #### [facility] [address] [address] [address] Sarmad Patino Chloride [Moles/Vol] 103 mmol/L Normal 98-107 [facility] Comment on above: Performed By: #### D DAVIDSON, MG, PHOS, CMP, LIPID, URIC #### [facility] [address] [address] [address] Sarmad Patino CO2 [Moles/Vol] 26.6 mmol/L Normal 21.0-32.0 [facility] Comment on above: Performed By: #### D DAVIDSON, MG, PHOS, CMP, LIPID, URIC #### [facility] [address] [address] [address] Sarmad Patino Creatinine [Mass/Vol] 0.75 mg/dL Normal 0.55-1.02 [facility] Comment on above: Performed By: #### D DAVIDSON, MG, PHOS, CMP, LIPID, URIC #### [facility] [address] [address] [address] Sarmad Patino EGFR-AF DUTCH >60 Normal >=60 [facility] Comment on above: Performed By: #### D DAVIDSON, MG, PHOS, CMP, LIPID, URIC #### [facility] [address] [place] [address] Dr. Sarmad Patino EGFR-NON AF DUTCH >60 Normal >=60 [facility] Comment on above: Performed By: #### D DAVIDSON, MG, PHOS, CMP, LIPID, URIC #### [facility] [address] [address] [address] Sarmad Patino Globulin (S) [Mass/Vol] 3.0 g/dL Normal [facility] Comment on above: Performed By: #### D DAVIDSON, MG, PHOS, CMP, LIPID, URIC #### [facility] [address] [place] [address] Dr. Sarmad Patino Glucose [Mass/Vol] 99 mg/dL Normal 74-106 [facility] Comment on above: Performed By: #### D DAVIDSON, MG, PHOS, CMP, LIPID, URIC #### [facility] [address] [place] [address] Dr. Sramad Patino Potassium [Moles/Vol] 4.3 mmol/L Normal 3.5-5.1 [facility] Comment on above: Performed By: #### D DAVIDSON, MG, PHOS, CMP, LIPID, URIC #### [facility] [address] [place] [address] Dr. Sarmad Patino Protein [Mass/Vol] 6.8 g/dL Normal 6.4-8.2 [facility] Comment on above: Performed By: #### D DAVIDSON, MG, PHOS, CMP, LIPID, URIC #### [facility] [address] [place] [address] Dr. Sarmad Patino Sodium [Moles/Vol] 139 mmol/L Normal 136-145 [facility] Comment on above: Performed By: #### D DAVIDSON, MG, PHOS, CMP, LIPID, URIC #### [facility] [address] [place] [address] Dr. Sarmad Patino Urea nitrogen [Mass/Vol] 16.0 mg/dL Normal 7.0-18.0 [facility] Comment on above: Performed By: #### D DAVIDSON, MG, PHOS, CMP, LIPID, URIC #### [facility] [address] [place] [address] Dr. Sarmad Patino Urea nitrogen/Creatinine [Mass ratio] 21.3 mg/mg Normal [facility] Comment on above: Performed By: #### D DAVIDSON, MG, PHOS, CMP, LIPID, URIC #### [facility] [address] [place] [address] Dr. Sarmad Patino URIC ACID SERUMon 02-08-2022 Urate [Mass/Vol] 5.4 mg/dL Normal 2.6-6.0 [facility] Comment on above: Performed By: #### D DAVIDSON, MG, PHOS, CMP, LIPID, URIC #### [facility] [address] [place] [address] Dr. Sarmad Patino BK VIRUS PCR QUANTon 022 BKV DNA QUANT PCR PLASMA 27 IU/mL Normal Negative [facility] Comment on above: Result Comment: The linear range of the assay is 22 - 100,000,000 IU/mL. Performed By: #### D DAVIDSON, MG, PHOS, CMP, LIPID, URIC #### [facility] [address] [place] [address] Dr. Sarmad Patino Log10 BKV DNA Plasma 1.431 log10 IU/mL Normal [facility] Comment on above: Performed By: #### D DAVIDSON, MG, PHOS, CMP, LIPID, URIC #### [facility] [address] [place] [address] Dr. Sarmad Patino FK506 (TACROLIMUS) WHOLE BLO ODon 01-30-2022 Tacrolimus (FK506), Blood 6.5 ng/mL Normal 2.0-20.0 [facility] Comment on above: Result Comment: Trou gh (immediately following transplant) 15.0 . Trough (steady state, 2 weeks or more after transplant): 3.0 - 8.0 . Performed by LC-MS/MS technology. Performed By: #### D DAVIDSON, MG, PHOS, CMP, LIPID, URIC #### [facility] [address] [place] [address] Dr. Sarmad Patino RAPAMUNE(SIROLIMUS)on 2021 Rapamune(Sirolimus), whole blood 9.9 ng/mL Normal 3.0-20.0 [facility] Comment on above: Result Comment: Perf ormed by LC/MS-MS technology . This test was developed and its performance characteristics determined by [employer] [facility]. It has not been cleared or approved by the Food and Drug Administration. Performed By: #### D DAVIDSON, MG, PHOS, CMP, LIPID, URIC #### [facility] [address] [place] [address] Dr. Sarmad Patino BILIRUBIN CONJUGATED (DIRECT )on 01-28-2022 BILI, CONJUGATED 0.1 mg/dL Normal 0.0-0.2 [facility] Comment on above: Performed By: #### D DAVIDSON, MG, PHOS, CMP, LIPID, URIC #### [facility] [address] [place] [address] Dr. Sarmad Patino CBC AUTO DIFFon 01-28-2022 BASO # 0.0 103/ul Normal 0.0-0.1 [facility] Comment on above: Performed By: #### D DAVIDSON, MG, PHOS, CMP, LIPID, URIC #### [facility] [address] [place] [address] Dr. Sarmad Patino Basophils/100 WBC (Bld) 0.3 % Normal 0.2-2.0 [facility] Comment on above: Performed By: #### D DAVIDSON, MG, PHOS, CMP, LIPID, URIC #### [facility] [address] [place] [address] Dr. Sarmad Patino EO # 0.2 103/ul Normal 0.0-0.7 [facility] Comment on above: Performed By: #### D DAVIDSON, MG, PHOS, CMP, LIPID, URIC #### [facility] [address] [place] [address] Dr. Sarmad Patino Eosinophils/100 WBC (Bld) 3.1 % Normal 0.9-7.0 [facility] Comment on above: Performed By: #### D DAVIDSON, MG, PHOS, CMP, LIPID, URIC #### [facility] [address] [place] [address] Dr. Sarmad Patino Erythrocyte distribution width (RBC) [Ratio] 15.4 % Critically high 11.0-15.0 [facility] Comment on above: Performed By: #### D DAVIDSON, MG, PHOS, CMP, LIPID, URIC #### [facility] [address] [place] [address] Dr. Sarmad Patino Hematocrit (Bld) [Volume fraction] 42.6 % Normal 36.0-48.0 [facility] Comment on above: Performed By: #### D DAVIDSON, MG, PHOS, CMP, LIPID, URIC #### [facility] [address] [place] [address] Dr. Sarmad Patino Hemoglobin (Bld) [Mass/Vol] 14.0 g/dL Normal 12.0-16.0 [facility] Comment on above: Performed By: #### D DAVIDSON, MG, PHOS, CMP, LIPID, URIC #### [facility] [address] [place] [address] Dr. Sarmad Patino IG # 0.05 10e3/ul Critically high 0.00-0.03 [facility] Comment on above: Performed By: #### D DAVIDSON, MG, PHOS, CMP, LIPID, URIC #### [facility] [address] [place] [address] Dr. Sarmad Patino IG % 0.7 % Critically high 0.0-0.5 [facility] Comment on above: Performed By: #### D DAVIDSON, MG, PHOS, CMP, LIPID, URIC #### [facility] [address] [place] [address] Dr. Sarmad Patino LYMPH # 1.1 103/ul Critically low 1.2-3.8 [facility] Comment on above: Performed By: #### D DAVIDSON, MG, PHOS, CMP, LIPID, URIC #### [facility] [address] [place] [address] Dr. Sarmad Patino Lymphocytes/100 WBC (Bld) 15.8 % Critically low 20.5-60.0 [facility] Comment on above: Performed By: #### D DAVIDSON, MG, PHOS, CMP, LIPID, URIC #### [facility] [address] [place] [address] Dr. Sarmad Patino MANUAL DIFF REQ NO Normal [facility] Comment on above: Performed By: #### D DAVIDSON, MG, PHOS, CMP, LIPID, URIC #### [facility] [address] [place] [address] Dr. Sarmad Patino MCH (RBC) [Entitic mass] 28.3 pg Normal 26.7-34.0 [facility] Comment on above: Performed By: #### D DAVIDSON, MG, PHOS, CMP, LIPID, URIC #### [facility] [address] [place] [address] Dr. Sarmad Patino MCHC (RBC) [Mass/Vol] 32.9 g/dL Normal 29.9-35.2 [facility] Comment on above: Performed By: #### D DAVDISON, MG, PHOS, CMP, LIPID, URIC #### [facility] [address] [place], [place] [id number] Dr. Sarmad Patino MCV (RBC) [Entitic vol] 86.2 fL Normal 81.0-99.0 [facility] Comment on above: Performed By: #### D DAVIDSON, MG, PHOS, CMP, LIPID, URIC #### [facility] [address] [place] [address] Dr. Sarmad Patino MONO # 0.8 103/ul Normal 0.3-0.8 [facility] Comment on above: Performed By: #### D DAVIDSON, MG, PHOS, CMP, LIPID, URIC #### [facility] [address] [place] [address] Dr. Sarmad Patino Monocytes/100 WBC (Bld) 11.0 % Normal 1.7-12.0 [facility] Comment on above: Performed By: #### D DAVIDSON, MG, PHOS, CMP, LIPID, URIC #### [facility] [address] [place] [address] Dr. Sarmad Patino NEUT # 4.8 103/ul Normal 1.4-6.5 [facility] Comment on above: Performed By: #### D DAVIDSON, MG, PHOS, CMP, LIPID, URIC #### [facility] [address] [place] [address] Dr. Sarmad Patino Neutrophils/100 WBC (Bld) 69.1 % Normal 43.0-75.0 [facility] Comment on above: Performed By: #### D DAVIDSON, MG, PHOS, CMP, LIPID, URIC #### [facility] [address] [place] [address] Dr. Sarmad Patino Platelet mean volume (Bld) [Entitic vol] 10.8 fL Normal 9.5-13.5 [facility] Comment on above: Performed By: #### D DAVIDSON, MG, PHOS, CMP, LIPID, URIC #### [facility] [address] [place] [address] Dr. Sarmad Patino PLT 208 103/ul Normal 150-450 [facility] Comment on above: Performed By: #### D DAVIDSON, MG, PHOS, CMP, LIPID, URIC #### [facility] [address] [address] [address] Sarmad Patino RBC 4.94 106/ul Normal 4.20-5.40 [facility] Comment on above: Performed By: #### D DAVIDSON, MG, PHOS, CMP, LIPID, URIC #### [facility] [address] [address] [address] Sarmad Patino WBC 7.0 103/ul Normal 4.0-11.0 [facility] Comment on above: Performed By: #### D DAVIDSON, MG, PHOS, CMP, LIPID, URIC #### [facility] [address] [address] [address] Sarmad Patino GLYCOHEMOGLOBIN A1Con 2021 ADA RECOMMENDATION SEE BELOW Normal [facility] Comment on above: Result Comment: ADA RECOMMENDED LIMIT 4.0 - 6.0 ADA THERAPEUTIC TARGET < 7.0 ACTION SUGGESTED > 7.0 Performed By: #### D DAVIDSON, MG, PHOS, CMP, LIPID, URIC #### [facility] [address] [address] [address] Sarmad Patino Glucose [Mass/Vol] 137 mg/dL Normal [facility] Comment on above: Performed By: #### D DAVIDSON, MG, PHOS, CMP, LIPID, URIC #### [facility] [address] [place] [address] Dr. Sarmad Patino HbA1c (Bld) [Mass fraction] 6.4 % Critically high 4.5-6.2 [facility] Comment on above: Performed By: #### D DAVIDSON, MG, PHOS, CMP, LIPID, URIC #### [facility] [address] [place] [address] Dr. Sarmad Patino LIPID PROFILEon 01-28-2022 CHOL-HDL RATIO NORM SEE BELOW Normal [facility] Comment on above: Result Comment: 3.3 - 4.4 LOW RISK 4.4 - 7.1 AVERAGE RISK 7.1 - 11.0 MODERATE RISK >11.0 HIGH RISK Performed By: #### D DAVIDSON, MG, PHOS, CMP, LIPID, URIC #### [facility] [address] [place] [address] Dr. Sarmad Patino Cholesterol [Mass/Vol] 209 mg/dL Critically high <=200 [facility] Comment on above: Performed By: #### D DAVIDSON, MG, PHOS, CMP, LIPID, URIC #### [facility] [address] [address] [address] Sarmad Patino Cholesterol in HDL [Mass/Vol] 59 mg/dL Normal 40-60 [facility] Comment on above: Performed By: #### D DAVIDSON, MG, PHOS, CMP, LIPID, URIC #### [facility] [address] [address] [address] Sarmad Patino Cholesterol in LDL [Mass/Vol] 100.4 mg/dL Normal [facility] Comment on above: Performed By: #### D DAVIDSON, MG, PHOS, CMP, LIPID, URIC #### [facility] [address] [address] [address] Sarmad Patino Cholesterol.total/Cho lesterol in HDL [Mass ratio] 3.5 {ratio} Normal [facility] Comment on above: Performed By: #### D DAVIDSON, MG, PHOS, CMP, LIPID, URIC #### [facility] [address] [address] [address] Sarmad Patino HDL NORMAL > or = 60 mg/dl - LO W CARDIOVASCULAR RISK <40 mg/dl - HIGH CARDIOVASCULAR RISK Normal [facility] Comment on above: Performed By: #### D DAVIDSON, MG, PHOS, CMP, LIPID, URIC #### [facility] [address] [address] [address] Sarmad Patino LDL CALC NORMAL SEE BELOW Normal [facility] Comment on above: Result Comment: <100 mg/dl OPTIMAL 100 - 129 mg/dl NEAR OR ABOVE OPTIMAL 130 - 159 mg/dl BORDERLINE HIGH 160 - 189 mg/dl HIGH >190 mg/dl VERY HIGH Performed By: #### D DAVIDSON, MG, PHOS, CMP, LIPID, URIC #### [facility] [address] [address] [address] Sarmad Patino Triglyceride [Mass/Vol] 248 mg/dL Critically high <=150 [facility] Comment on above: Performed By: #### D DAVIDSON, MG, PHOS, CMP, LIPID, URIC #### [facility] [address] [address] [address] Sarmad Patino VLDL CALC 49.6 mg/dL Normal [facility] Comment on above: Performed By: #### D DAVIDSON, MG, PHOS, CMP, LIPID, URIC #### [facility] [address] [address] [address] Sarmad Patino MAGNESIUMon 01-28-2022 Magnesium [Mass/Vol] 1.6 mg/dL Critically low 1.8-2.4 [facility] Comment on above: Performed By: #### D DAVIDSON, MG, PHOS, CMP, LIPID, URIC #### [facility] [address] [place] [address] Dr. Sarmad Patino PHOSPHORUSon 01-28-2022 Phosphate [Mass/Vol] 2.7 mg/dL Normal 2.6-4.7 [facility] Comment on above: Performed By: #### D DAVIDSON, MG, PHOS, CMP, LIPID, URIC #### [facility] [address] [place] [address] Dr. Sarmad Patino PROF 14(COMP METB)on 022 Albumin [Mass/Vol] 3.3 g/dL Critically low 3.4-5.0 [facility] Comment on above: Performed By: #### D DAVIDSON, MG, PHOS, CMP, LIPID, URIC #### [facility] [address] [address] [address] Sarmad Patino Albumin/Globulin [Mass ratio] 0.9 {ratio} Normal [facility] Comment on above: Performed By: #### D DAVIDSON, MG, PHOS, CMP, LIPID, URIC #### [facility] [address] [address] [address] Sarmad Patino ALP [Catalytic activity/Vol] 124 U/L Critically high 46-116 [facility] Comment on above: Performed By: #### D DAVIDSON, MG, PHOS, CMP, LIPID, URIC #### [facility] [address] [address] [address] Sarmad Patino ALT [Catalytic activity/Vol] 28 U/L Normal 14-59 [facility] Comment on above: Performed By: #### D DAVIDSON, MG, PHOS, CMP, LIPID, URIC #### [facility] [address] [address] [address] Sarmad Patino Anion gap [Moles/Vol] 12.0 mmol/L Normal [facility] Comment on above: Performed By: #### D DAVIDSON, MG, PHOS, CMP, LIPID, URIC #### [facility] [address] [address] [address] Sarmad Patino AST [Catalytic activity/Vol] 20 U/L Normal 15-37 [facility] Comment on above: Performed By: #### D DAVIDSON, MG, PHOS, CMP, LIPID, URIC #### [facility] [address] [place] [address] Dr. Sarmad Patino Bilirubin [Mass/Vol] 0.5 mg/dL Normal 0.2-1.0 [facility] Comment on above: Performed By: #### D DAVIDSON, MG, PHOS, CMP, LIPID, URIC #### [facility] [address] [place] [address] Dr. Sarmad Patino Calcium [Mass/Vol] 9.1 mg/dL Normal 8.5-10.1 [facility] Comment on above: Performed By: #### D DAVIDSON, MG, PHOS, CMP, LIPID, URIC #### [facility] [address] [place] [address] Dr. Sarmad Patino Chloride [Moles/Vol] 104 mmol/L Normal 98-107 [facility] Comment on above: Performed By: #### D DAVIDSON, MG, PHOS, CMP, LIPID, URIC #### [facility] [address] [place] [address] Dr. Sarmad Patino CO2 [Moles/Vol] 25.7 mmol/L Normal 21.0-32.0 [facility] Comment on above: Performed By: #### D DAVIDSON, MG, PHOS, CMP, LIPID, URIC #### [facility] [address] [address] [address] Sarmad Patino Creatinine [Mass/Vol] 0.77 mg/dL Normal 0.55-1.02 [facility] Comment on above: Performed By: #### D DAVIDSON, MG, PHOS, CMP, LIPID, URIC #### [facility] [address] [address] [address] Sarmad Patino EGFR-AF DUTCH >60 Normal >=60 [facility] Comment on above: Performed By: #### D DAVIDSON, MG, PHOS, CMP, LIPID, URIC #### [facility] [address] [address] [address] Sarmad Patino EGFR-NON AF DUTCH >60 Normal >=60 [facility] Comment on above: Performed By: #### D DAVIDSON, MG, PHOS, CMP, LIPID, URIC #### [facility] [address] [address] [address] Sarmad Patino Globulin (S) [Mass/Vol] 3.7 g/dL Normal [facility] Comment on above: Performed By: #### D DAVIDSON, MG, PHOS, CMP, LIPID, URIC #### [facility] [address] [address] [address] Sarmad Patino Glucose [Mass/Vol] 108 mg/dL Critically high 74-106 [facility] Comment on above: Performed By: #### D DAVIDSON, MG, PHOS, CMP, LIPID, URIC #### [facility] [address] [place] [address] Dr. Sarmad Patino Potassium [Moles/Vol] 3.7 mmol/L Normal 3.5-5.1 [facility] Comment on above: Performed By: #### D DAVIDSON, MG, PHOS, CMP, LIPID, URIC #### [facility] [address] [address] [address] Sarmad Patino Protein [Mass/Vol] 7.0 g/dL Normal 6.4-8.2 [facility] Comment on above: Performed By: #### D DAVIDSON, MG, PHOS, CMP, LIPID, URIC #### [facility] [address] [address] [address] Sarmad Patino Sodium [Moles/Vol] 138 mmol/L Normal 136-145 [facility] Comment on above: Performed By: #### D DAVIDSON, MG, PHOS, CMP, LIPID, URIC #### [facility] [address] [address] [address] Sarmad Patino Urea nitrogen [Mass/Vol] 15.0 mg/dL Normal 7.0-18.0 [facility] Comment on above: Performed By: #### D DAVIDSON, MG, PHOS, CMP, LIPID, URIC #### [facility] [address] [address] [address] Sarmad Patino Urea nitrogen/Creatinine [Mass ratio] 19.5 mg/mg Normal [facility] Comment on above: Performed By: #### D DAVIDSON, MG, PHOS, CMP, LIPID, URIC #### [facility] [address] [address] [address] Sarmad Patino URIC ACID SERUMon 01-28-2022 Urate [Mass/Vol] 4.3 mg/dL Normal 2.6-6.0 [facility] Comment on above: Performed By: #### D DAVIDSON, MG, PHOS, CMP, LIPID, URIC #### [facility] [address] [address] [address] Sarmad Patino Quick Strepon 01-12-2022 S. pyogenes Org specific cx Ql (Throat) Negative [employer] Other Quick Strep [facility] Other XR CHEST 1 Von 01-07-2022 XR [...] ARTEMIO BERNARD Date: 2022-01-07 15:00 Normal [facility] CBC W MANUAL DIFFon 01-04-20 22 ATYPICAL LYMPH # 1.40 103/ul Normal [facility] Comment on above: Performed By: #### D DAVIDSON, MG, PHOS, CMP, LIPID, URIC #### [facility] [address] [address] [address] Sarmad Patino ATYPICAL LYMPH % 10 % Normal [facility] Comment on above: Performed By: #### D DAVIDSON, MG, PHOS, CMP, LIPID, URIC #### [facility] [address] [address] [address] Sarmad Patino BAND # 0.6 103/ul Critically high 0.0-0.3 [facility] Comment on above: Performed By: #### D DAVIDSON, MG, PHOS, CMP, LIPID, URIC #### [facility] [address] [address] [address] Sarmad Patino BAND % 4 % Normal 0-5 [facility] Comment on above: Performed By: #### D DAVIDSON, MG, PHOS, CMP, LIPID, URIC #### [facility] [address] [address] [address] Sarmad Patino BASOM # 0.00 103/ul Normal 0.00-0.10 [facility] Comment on above: Performed By: #### D DAVIDSON, MG, PHOS, CMP, LIPID, URIC #### [facility] [address] [address] [address] Sarmad Patino BASOM % 0.0 % Critically low 0.2-2.0 [facility] Comment on above: Performed By: #### D DAVIDSON, MG, PHOS, CMP, LIPID, URIC #### [facility] [address] [address] [address] Sarmad Patino BLAST # Normal [facility] Comment on above: Performed By: #### D DAVIDSON, MG, PHOS, CMP, LIPID, URIC #### [facility] [address] [address] [address] Sarmad Patino BLAST % Normal [facility] Comment on above: Performed By: #### D DAVIDSON, MG, PHOS, CMP, LIPID, URIC #### [facility] [address] [address] [address] Sarmad Patino CORRECTED WBC Normal 4.0-11.0 [facility] Comment on above: Performed By: #### D DAVIDSON, MG, PHOS, CMP, LIPID, URIC #### [facility] [address] [address] [address] Sarmad Patino EOS # 0.14 103/ul Normal 0.00-0.70 [facility] Comment on above: Performed By: #### D DAVIDSON, MG, PHOS, CMP, LIPID, URIC #### [facility] [address] [place] [address] Dr. Sarmad Patino EOS% 1.0 % Normal 0.9-7.0 [facility] Comment on above: Performed By: #### D DAVIDSON, MG, PHOS, CMP, LIPID, URIC #### [facility] [address] [place] [address] Dr. Sarmad Patino HCT 42.8 % Normal 36.0-48.0 [facility] Comment on above: Performed By: #### D DAVIDSON, MG, PHOS, CMP, LIPID, URIC #### [facility] [address] [place] [address] Dr. Sarmad Patino HGB 14.2 g/dl Normal 12.0-16.0 [facility] Comment on above: Performed By: #### D DAVIDSON, MG, PHOS, CMP, LIPID, URIC #### [facility] [address] [place] [address] Dr. Sarmad Patino LYMPHM # 0.00 103/ul Critically low 1.20-3.80 [facility] Comment on above: Performed By: #### D DAVIDSON, MG, PHOS, CMP, LIPID, URIC #### [facility] [address] [place] [address] Dr. Sarmad Patino LYMPHM% 0.0 % Critically low 20.5-60.0 [facility] Comment on above: Performed By: #### D DAVIDSON, MG, PHOS, CMP, LIPID, URIC #### [facility] [address] [address] [address] Sarmad Patino MCH 28.8 pg Normal 26.7-34.0 [facility] Comment on above: Performed By: #### D DAVIDSON, MG, PHOS, CMP, LIPID, URIC #### [facility] [address] [address] [address] Sarmad Patino MCHC 33.2 g/dl Normal 29.9-35.2 [facility] Comment on above: Performed By: #### D DAVIDSON, MG, PHOS, CMP, LIPID, URIC #### [facility] [address] [address] [address] Sarmad Patino MCV 86.8 fL Normal 81.0-99.0 [facility] Comment on above: Performed By: #### D DAVIDSON, MG, PHOS, CMP, LIPID, URIC #### [facility] [address] [address] [address] Sarmad Patino METAMYELOCYTE # Normal [facility] Comment on above: Performed By: #### D DAVIDSON, MG, PHOS, CMP, LIPID, URIC #### [facility] [address] [address] [address] Sarmad Patino METAMYELOCYTE % Normal [facility] Comment on above: Performed By: #### D DAVIDSON, MG, PHOS, CMP, LIPID, URIC #### [facility] [address] [address] [address] Sarmad Patino MONOM# 0.84 103/ul Critically high 0.30-0.80 [facility] Comment on above: Performed By: #### D DAVIDSON, MG, PHOS, CMP, LIPID, URIC #### [facility] [address] [address] [address] Sarmad Patino MONOM% 6.0 % Normal 1.7-12.0 [facility] Comment on above: Performed By: #### D DAVIDSON, MG, PHOS, CMP, LIPID, URIC #### [facility] [address] [address] [address] Sarmad Patino MPV 11.5 fL Normal 9.5-13.5 [facility] Comment on above: Performed By: #### D DAVIDSON, MG, PHOS, CMP, LIPID, URIC #### [facility] [address] [address] [address] Sarmad Patino MYELOCYTE # 0.3 103/ul Normal [facility] Comment on above: Performed By: #### D DAVIDSON, MG, PHOS, CMP, LIPID, URIC #### [facility] [address] [address] [address] Sarmad Patino MYELOCYTE % 2 % Normal [facility] Comment on above: Performed By: #### D DAVIDSON, MG, PHOS, CMP, LIPID, URIC #### [facility] [address] [place] [address] Dr. Sarmad Patino NRBC Normal [facility] Comment on above: Performed By: #### D DAVIDSON, MG, PHOS, CMP, LIPID, URIC #### [facility] [address] [place] [address] Dr. Sarmad Patino PLT 180 103/ul Normal 150-450 [facility] Comment on above: Performed By: #### D DAVIDSON, MG, PHOS, CMP, LIPID, URIC #### [facility] [address] [place] [address] Dr. Sarmad Patino RBC 4.93 106/ul Normal 4.20-5.40 [facility] Comment on above: Performed By: #### D DAVIDSON, MG, PHOS, CMP, LIPID, URIC #### [facility] [address] [address] [address] Sarmad Patino RDW 13.9 % Normal 11.0-15.0 [facility] Comment on above: Performed By: #### D DAVIDSON, MG, PHOS, CMP, LIPID, URIC #### [facility] [address] [place] [address] Dr. Sarmad Patino SEG # 10.78 103/ul Critically high 1.40-6.50 [facility] Comment on above: Performed By: #### D DAVIDSON, MG, PHOS, CMP, LIPID, URIC #### [facility] [address] [place] [address] Dr. Sarmad Patino SEG % 77.0 % Critically high 43.0-75.0 [facility] Comment on above: Performed By: #### D DAVIDSON, MG, PHOS, CMP, LIPID, URIC #### [facility] [address] [id number] Sarmad Patino WBC 14.0 103/ul Critically high 4.0-11.0 [facility] Comment on above: Performed By: #### D DAVIDSON, MG, PHOS, CMP, LIPID, URIC #### [facility] [address] [place], [place] [address] NECK [address] W [...] middle ear cavities clear. Skull base intact. Histopath Tech spaces normal. Parotid glands normal. Submandibular glands [...] F WARD Date: 2022-01-03 10:40 Normal [facility]on SARS-CoV-2 (COVID-19) RNA MURALI+probe Ql (Unsp spec) Detected Critically abnormal NOT DETECTED [facility] Comment on above: Result Comment: This test is not yet approved or cleared by the [place] FDA. When there are no FDA-approved or cleared tests available, and other criteria are met, FDA can make tests available under an emergency access mechanism called an Emergency Use Authorization (EUA). The EUA for this test is supported by the [place] of Health and Human Service's declaration that [...] DAVIDSON, MG, PHOS, CMP, LIPID, URIC #### [facility] [address] [place] [address] Dr. Sarmad Patino GROUP A STREP CULTUREon S. pyogenes Ag Ql (Unsp spec) Culture Observations: Negative for Group A Streptococcus Normal [facility] Comment on above: Performed By: #### U JUVE, LIPID, MG, CMP, DBIL, PHOS #### [facility] [address] [address] [address] Sarmad Patino INFLUENZA A AND B AGon 01-03 INFLUENZA A AG Negative Normal NEGATIVE SEE COMMENT [facility] Comment on above: Performed By: #### D DAVIDSON, MG, PHOS, CMP, LIPID, URIC #### [facility] [address] [place] [address] Dr. Sarmad Patino INFLUENZA B AG Negative Normal NEGATIVE SEE COMMENT [facility] Comment on above: Performed By: #### D DAVIDSON, MG, PHOS, CMP, LIPID, URIC #### [facility] [address] [place] [address] Dr. Sarmad Patino INTERNAL CONTROLS Within Normal Limits Normal Wi thin Normal Limits [facility] Comment on above: Performed By: #### D DAVIDSON, MG, PHOS, CMP, LIPID, URIC #### [facility] [address] [address] [address] Sarmad Patino PROF 14(COMP METB)on 022 Albumin [Mass/Vol] 2.5 g/dL Critically low 3.4-5.0 [facility] Comment on above: Performed By: #### U JUVE, LIPID, MG, CMP, DBIL, PHOS #### [facility] [address] [place] [address] Dr. Sarmad Patino Albumin/Globulin [Mass ratio] 0.5 {ratio} Normal [facility] Comment on above: Performed By: #### U JUVE, LIPID, MG, CMP, DBIL, PHOS #### [facility] [address] [place] [address] Dr. Sarmad Patino ALP [Catalytic activity/Vol] 185 U/L Critically high 46-116 [facility] Comment on above: Performed By: #### U JUVE, LIPID, MG, CMP, DBIL, PHOS #### [facility] [address] [place] [address] Dr. Sarmad Patino ALT [Catalytic activity/Vol] 108 U/L Critically high 14-59 [facility] Comment on above: Performed By: #### U JUVE, LIPID, MG, CMP, DBIL, PHOS #### [facility] [address] [address] [address] Sarmad Patino Anion gap [Moles/Vol] 8.3 mmol/L Normal [facility] Comment on above: Performed By: #### U JUVE, LIPID, MG, CMP, DBIL, PHOS #### [facility] [address] [place] [address] Dr. Sarmad Patino AST [Catalytic activity/Vol] 59 U/L Critically high 15-37 [facility] Comment on above: Performed By: #### U JUVE, LIPID, MG, CMP, DBIL, PHOS #### [facility] [address] [place], [place] [id number] Dr. Sarmad Patino Bilirubin [Mass/Vol] 0.6 mg/dL Normal 0.2-1.0 [facility] Comment on above: Performed By: #### U JUVE, LIPID, MG, CMP, DBIL, PHOS #### [facility] [address] [place] [address] Dr. Sarmad Patino Calcium [Mass/Vol] 9.0 mg/dL Normal 8.5-10.1 [facility] Comment on above: Performed By: #### U JUVE, LIPID, MG, CMP, DBIL, PHOS #### [facility] [address] [place] [address] Dr. Sarmad Patino Chloride [Moles/Vol] 100 mmol/L Normal 98-107 [facility] Comment on above: Performed By: #### U JUVE, LIPID, MG, CMP, DBIL, PHOS #### [facility] [address] [place] [address] Dr. Sarmad Patino CO2 [Moles/Vol] 29.0 mmol/L Normal 21.0-32.0 [facility] Comment on above: Performed By: #### U JUVE, LIPID, MG, CMP, DBIL, PHOS #### [facility] [address] [place] [address] Dr. Sarmad Patino Creatinine [Mass/Vol] 1.05 mg/dL Critically high 0.55-1.02 [facility] Comment on above: Performed By: #### U JUVE, LIPID, MG, CMP, DBIL, PHOS #### [facility] [address] [place] [address] Dr. Sarmad Patino EGFR-AF DUTCH >60 Normal >=60 [facility] Comment on above: Performed By: #### U JUVE, LIPID, MG, CMP, DBIL, PHOS #### [facility] [address] [place] [address] Dr. Sarmad Patino EGFR-NON AF DUTCH 53 mL/min/1.73m2 Critically low >=60 [facility] Comment on above: Performed By: #### U JUVE, LIPID, MG, CMP, DBIL, PHOS #### [facility] [address] [address] [address] Sarmad Patino Globulin (S) [Mass/Vol] 4.6 g/dL Normal [facility] Comment on above: Performed By: #### U JUVE, LIPID, MG, CMP, DBIL, PHOS #### [facility] [address] [place] [address] Dr. Sarmad Patino Glucose [Mass/Vol] 154 mg/dL Critically high 74-106 [facility] Comment on above: Performed By: #### U JUVE, LIPID, MG, CMP, DBIL, PHOS #### [facility] [address] [place] [address] Dr. Sarmad Patino Potassium [Moles/Vol] 3.3 mmol/L Critically low 3.5-5.1 [facility] Comment on above: Performed By: #### U JUVE, LIPID, MG, CMP, DBIL, PHOS #### [facility] [address] [place] [address] Dr. Sarmad Patino Protein [Mass/Vol] 7.1 g/dL Normal 6.4-8.2 [facility] Comment on above: Performed By: #### U JUVE, LIPID, MG, CMP, DBIL, PHOS #### [facility] [address] [place] [address] Dr. Sarmad Patino Sodium [Moles/Vol] 134 mmol/L Critically low 136-145 [facility] Comment on above: Performed By: #### U JUVE, LIPID, MG, CMP, DBIL, PHOS #### [facility] [address] [place] [address] Dr. Sarmad Patino Urea nitrogen [Mass/Vol] 24.0 mg/dL Critically high 7.0-18.0 [facility] Comment on above: Performed By: #### U JUVE, LIPID, MG, CMP, DBIL, PHOS #### [facility] [address] [place] [address] Dr. Sarmad Patino Urea nitrogen/Creatinine [Mass ratio] 22.9 mg/mg Normal [facility] Comment on above: Performed By: #### U JUVE, LIPID, MG, CMP, DBIL, PHOS #### [facility] [address] [place], [place] [address] Dr. Sarmad Patino STREPT SCREENon 01-03-2022 STREP SCREEN A Negative Normal NEGATIVE [facility] Comment on above: Performed By: #### U JUVE, LIPID, MG, CMP, DBIL, PHOS #### [facility] [address] [place], [place] [address] Dr. Sarmad Patino XR CHEST 2 Von [...] MAYRA WHITESIDE Date: 2022-01-03 03:54 Normal [facility] Quick Strepon 12-28-2021 S. pyogenes Org specific cx Ql (Throat) Negative [employer] Other Quick Strep [employer] Other SARS-CoV-2 (COVID-19) RNA NA A+probe Ql (Resp)on 12-25-2021 SARS-CoV-2 (COVID-19) RNA MURALI+probe Ql (Unsp spec) Negative [employer] Other FK506 (TACROLIMUS) WHOLE BLO ODon 12-08-2021 Tacrolimus (FK506), Blood 6.6 ng/mL Normal 2.0-20.0 [facility] Comment on above: Result Comment: Trou gh (immediately following transplant) 15.0 . Trough (steady state, 2 weeks or more after transplant): 3.0 - 8.0 . Performed by LC-MS/MS technology. Performed By: #### D DAVIDSON, MG, PHOS, CMP, LIPID, URIC #### [facility] [address] [place] [address] Dr. Sarmad Patino RAPAMUNE(SIROLIMUS)on 2021 Rapamune(Sirolimus), whole blood 9.6 ng/mL Normal 3.0-20.0 [facility] Comment on above: Result Comment: Perf ormed by LC/MS-MS technology . This test was developed and its performance characteristics determined by [employer]. It has not been cleared or approved by the Food and Drug Administration. Performed By: #### D DAVIDSON, MG, PHOS, CMP, LIPID, URIC #### [facility] [address] [place] [address] Dr. Sarmad Patino BILIRUBIN CONJUGATED (DIRECT )on 12-05-2021 BILI, CONJUGATED 0.1 mg/dL Normal 0.0-0.2 [facility] Comment on above: Performed By: #### D DAVIDSON, MG, PHOS, CMP, LIPID, URIC #### [facility] [address] [place] [address] Dr. Sarmad Patino CBC W MANUAL DIFFon 12-06-19 22 ATYPICAL LYMPH # Normal [facility] Comment on above: Performed By: #### D DAVIDSON, MG, PHOS, CMP, LIPID, URIC #### [facility] [address] [place] [address] Dr. Sarmad Patino ATYPICAL LYMPH % Normal [facility] Comment on above: Performed By: #### D DAVIDSON, MG, PHOS, CMP, LIPID, URIC #### [facility] [address] [place] [address] Dr. Sarmad Patino BAND # Normal 0.0-0.3 [facility] Comment on above: Performed By: #### D DAVIDSON, MG, PHOS, CMP, LIPID, URIC #### [facility] [address] [place] [address] Dr. Sarmad Patino BAND % Normal 0-5 [facility] Comment on above: Performed By: #### D DAVIDSON, MG, PHOS, CMP, LIPID, URIC #### [facility] [address] [address] [address] Sarmad Patino BASOM # 0.00 103/ul Normal 0.00-0.10 [facility] Comment on above: Performed By: #### D DAVIDSON, MG, PHOS, CMP, LIPID, URIC #### [facility] [address] [address] [address] Sarmad Patino BASOM % 0.0 % Critically low 0.2-2.0 [facility] Comment on above: Performed By: #### D DAVIDSON, MG, PHOS, CMP, LIPID, URIC #### [facility] [address] [address] [address] Sarmad Patino BLAST # Normal [facility] Comment on above: Performed By: #### D DAVIDSON, MG, PHOS, CMP, LIPID, URIC #### [facility] [address] [place] [address] Dr. Sarmad Patino BLAST % Normal [facility] Comment on above: Performed By: #### D DAVIDSON, MG, PHOS, CMP, LIPID, URIC #### [facility] [address] [place] [address] Dr. Sarmad Patino CORRECTED WBC Normal 4.0-11.0 [facility] Comment on above: Performed By: #### D DAVIDSON, MG, PHOS, CMP, LIPID, URIC #### [facility] [address] [place] [address] Dr. Sarmad Patino EOS # 0.15 103/ul Normal 0.00-0.70 [facility] Comment on above: Performed By: #### D DAVIDSON, MG, PHOS, CMP, LIPID, URIC #### [facility] [address] [address] [address] Sarmad Patino EOS% 2.0 % Normal 0.9-7.0 [facility] Comment on above: Performed By: #### D DAVIDSON, MG, PHOS, CMP, LIPID, URIC #### [facility] [address] [address] [address] Sarmad Patino HCT 47.5 % Normal 36.0-48.0 [facility] Comment on above: Performed By: #### D DAVIDSON, MG, PHOS, CMP, LIPID, URIC #### [facility] [address] [address] [address] Sarmad Patino HGB 15.6 g/dl Normal 12.0-16.0 [facility] Comment on above: Performed By: #### D DAVIDSON, MG, PHOS, CMP, LIPID, URIC #### [facility] [address] [address] [address] Sarmad Patino LYMPHM # 1.46 103/ul Normal 1.20-3.80 [facility] Comment on above: Performed By: #### D DAVIDSON, MG, PHOS, CMP, LIPID, URIC #### [facility] [address] [place] [address] Dr. Sarmad Patino LYMPHM% 19.0 % Critically low 20.5-60.0 [facility] Comment on above: Performed By: #### D DAVIDSON, MG, PHOS, CMP, LIPID, URIC #### [facility] [address] [place] [address] Dr. Sarmad Patino MCH 28.9 pg Normal 26.7-34.0 [facility] Comment on above: Performed By: #### D DAVIDSON, MG, PHOS, CMP, LIPID, URIC #### [facility] [address] [place] [address] Dr. Sarmad Patino MCHC 32.8 g/dl Normal 29.9-35.2 [facility] Comment on above: Performed By: #### D DAVIDSON, MG, PHOS, CMP, LIPID, URIC #### [facility] [address] [place] [address] Dr. Sarmad Patino MCV 88.1 fL Normal 81.0-99.0 [facility] Comment on above: Performed By: #### D DAVIDSON, MG, PHOS, CMP, LIPID, URIC #### [facility] [address] [place] [address] Dr. Sarmad Patino METAMYELOCYTE # Normal [facility] Comment on above: Performed By: #### D DAVIDSON, MG, PHOS, CMP, LIPID, URIC #### [facility] [address] [address] [address] Sarmad Patino METAMYELOCYTE % Normal [facility] Comment on above: Performed By: #### D DAVIDSON, MG, PHOS, CMP, LIPID, URIC #### [facility] [address] [address] [address] Sarmad Patino MONOM# 0.85 103/ul Critically high 0.30-0.80 [facility] Comment on above: Performed By: #### D DAVDISON, MG, PHOS, CMP, LIPID, URIC #### [facility] [address] [address] [address] Sarmad Patino MONOM% 11.0 % Normal 1.7-12.0 [facility] Comment on above: Performed By: #### D DAVIDSON, MG, PHOS, CMP, LIPID, URIC #### [facility] [address] [place] [address] Dr. Sarmad Patino MPV 11.3 fL Normal 9.5-13.5 [facility] Comment on above: Performed By: #### D DAVIDSON, MG, PHOS, CMP, LIPID, URIC #### [facility] [address] [place] [address] Dr. Sarmad Patino MYELOCYTE # Normal [facility] Comment on above: Performed By: #### D DAVIDSON, MG, PHOS, CMP, LIPID, URIC #### [facility] [address] [place] [address] Dr. Sarmad Patino MYELOCYTE % Normal [facility] Comment on above: Performed By: #### D DAVIDSON, MG, PHOS, CMP, LIPID, URIC #### [facility] [address] [place] [address] Dr. Sarmad Patino NRBC Normal [facility] Comment on above: Performed By: #### D DAVIDSON, MG, PHOS, CMP, LIPID, URIC #### [facility] [address] [place] [address] Dr. Sarmad Patino PLT 214 103/ul Normal 150-450 [facility] Comment on above: Performed By: #### D DAVIDSON, MG, PHOS, CMP, LIPID, URIC #### [facility] [address] [address] [address] Sarmad Patino RBC 5.39 106/ul Normal 4.20-5.40 [facility] Comment on above: Performed By: #### D DAVIDSON, MG, PHOS, CMP, LIPID, URIC #### [facility] [address] [place] [address] Dr. Sarmad Patino RDW 13.8 % Normal 11.0-15.0 [facility] Comment on above: Performed By: #### D DAVIDSON, MG, PHOS, CMP, LIPID, URIC #### [facility] [address] [place] [address] Dr. Sarmad Patino SEG # 5.24 103/ul Normal 1.40-6.50 [facility] Comment on above: Performed By: #### D DAVIDSON, MG, PHOS, CMP, LIPID, URIC #### [facility] [address] [place] [address] Dr. Sarmad Patino SEG % 68.0 % Normal 43.0-75.0 [facility] Comment on above: Performed By: #### D DAVIDSON, MG, PHOS, CMP, LIPID, URIC #### [facility] [address] [place] [address] Dr. Sarmad Patino WBC 7.7 103/ul Normal 4.0-11.0 [facility] Comment on above: Performed By: #### D DAVIDSON, MG, PHOS, CMP, LIPID, URIC #### [facility] [address] [place] [address] Dr. Sarmad Patino LIPID PROFILEon 12-05-2021 CHOL-HDL RATIO NORM SEE BELOW Normal [facility] Comment on above: Result Comment: 3.3 - 4.4 LOW RISK 4.4 - 7.1 AVERAGE RISK 7.1 - 11.0 MODERATE RISK >11.0 HIGH RISK Performed By: #### D DAVIDSON, MG, PHOS, CMP, LIPID, URIC #### [facility] [address] [place] [address] Dr. Sarmad Patino Cholesterol [Mass/Vol] 170 mg/dL Normal <=200 [facility] Comment on above: Performed By: #### D DAVIDSON, MG, PHOS, CMP, LIPID, URIC #### [facility] [address] [address] [address] Sarmad Patino Cholesterol in HDL [Mass/Vol] 54 mg/dL Normal 40-60 [facility] Comment on above: Performed By: #### D DAVIDSON, MG, PHOS, CMP, LIPID, URIC #### [facility] [address] [address] [address] Sarmad Patino Cholesterol in LDL [Mass/Vol] 92.2 mg/dL Normal [facility] Comment on above: Performed By: #### D DAVIDSON, MG, PHOS, CMP, LIPID, URIC #### [facility] [address] [address] [address] Sarmad Patino Cholesterol.total/Cho lesterol in HDL [Mass ratio] 3.1 {ratio} Normal [facility] Comment on above: Performed By: #### D DAVIDSON, MG, PHOS, CMP, LIPID, URIC #### [facility] [address] [address] [address] Sarmad Patino HDL NORMAL > or = 60 mg/dl - LO W CARDIOVASCULAR RISK <40 mg/dl - HIGH CARDIOVASCULAR RISK Normal [facility] Comment on above: Performed By: #### D DAVIDSON, MG, PHOS, CMP, LIPID, URIC #### [facility] [address] [address] [address] Sarmad Patino LDL CALC NORMAL SEE BELOW Normal [facility] Comment on above: Result Comment: <100 mg/dl OPTIMAL 100 - 129 mg/dl NEAR OR ABOVE OPTIMAL 130 - 159 mg/dl BORDERLINE HIGH 160 - 189 mg/dl HIGH >190 mg/dl VERY HIGH Performed By: #### D DAVIDSON, MG, PHOS, CMP, LIPID, URIC #### [facility] [address] [address] [address] Sarmad Patino Triglyceride [Mass/Vol] 119 mg/dL Normal <=150 [facility] Comment on above: Performed By: #### D DAVIDSON, MG, PHOS, CMP, LIPID, URIC #### [facility] [address] [address] [address] Sarmad Patino VLDL CALC 23.8 mg/dL Normal [facility] Comment on above: Performed By: #### D DAVIDSON, MG, PHOS, CMP, LIPID, URIC #### [facility] [address] [place] [address] Dr. Sarmad Patino MAGNESIUMon 12-05-2021 Magnesium [Mass/Vol] 1.8 mg/dL Normal 1.8-2.4 [facility] Comment on above: Performed By: #### D DAVIDSON, MG, PHOS, CMP, LIPID, URIC #### [facility] [address] [place] [address] Dr. Sarmad Patino PHOSPHORUSon 12-05-2021 Phosphate [Mass/Vol] 3.8 mg/dL Normal 2.6-4.7 [facility] Comment on above: Performed By: #### D DAVIDSON, MG, PHOS, CMP, LIPID, URIC #### [facility] [address] [place] [address] Dr. Sarmad Patino PROF 14(COMP METB)on 022 Albumin [Mass/Vol] 3.7 g/dL Normal 3.4-5.0 [facility] Comment on above: Performed By: #### D DAVIDSON, MG, PHOS, CMP, LIPID, URIC #### [facility] [address] [place] [address] Dr. Sarmad Patino Albumin/Globulin [Mass ratio] 1.0 {ratio} Normal [facility] Comment on above: Performed By: #### D DAVIDSON, MG, PHOS, CMP, LIPID, URIC #### [facility] [address] [place] [address] Dr. Sarmad Patino ALP [Catalytic activity/Vol] 151 U/L Critically high 46-116 [facility] Comment on above: Performed By: #### D DAVIDSON, MG, PHOS, CMP, LIPID, URIC #### [facility] [address] [place] [address] Dr. Sarmad Patino ALT [Catalytic activity/Vol] 27 U/L Normal 14-59 [facility] Comment on above: Performed By: #### D DAVIDSON, MG, PHOS, CMP, LIPID, URIC #### [facility] [address] [place] [address] Dr. Sarmad Patino Anion gap [Moles/Vol] 14.5 mmol/L Normal [facility] Comment on above: Performed By: #### D DAVIDSON, MG, PHOS, CMP, LIPID, URIC #### [facility] [address] [place] [address] Dr. Sarmad Patino AST [Catalytic activity/Vol] 25 U/L Normal 15-37 [facility] Comment on above: Performed By: #### D DAVIDSON, MG, PHOS, CMP, LIPID, URIC #### [facility] [address] [place] [address] Dr. Sarmad Patino Bilirubin [Mass/Vol] 0.4 mg/dL Normal 0.2-1.0 [facility] Comment on above: Performed By: #### D DAVIDSON, MG, PHOS, CMP, LIPID, URIC #### [facility] [address] [place] [address] Dr. Sarmad Patino Calcium [Mass/Vol] 9.4 mg/dL Normal 8.5-10.1 [facility] Comment on above: Performed By: #### D DAVIDSON, MG, PHOS, CMP, LIPID, URIC #### [facility] [address] [place] [address] Dr. Sarmad Patino Chloride [Moles/Vol] 103 mmol/L Normal 98-107 [facility] Comment on above: Performed By: #### D DAVIDSON, MG, PHOS, CMP, LIPID, URIC #### [facility] [address] [place] [address] Dr. Sarmad Patino CO2 [Moles/Vol] 26.5 mmol/L Normal 21.0-32.0 [facility] Comment on above: Performed By: #### D DAVIDSON, MG, PHOS, CMP, LIPID, URIC #### [facility] [address] [place] [address] Dr. Sarmad Patino Creatinine [Mass/Vol] 0.87 mg/dL Normal 0.55-1.02 [facility] Comment on above: Performed By: #### D DAVIDSON, MG, PHOS, CMP, LIPID, URIC #### [facility] [address] [address] [address] Sarmad Patino EGFR-AF DUTCH >60 Normal >=60 [facility] Comment on above: Performed By: #### D DAVIDSON, MG, PHOS, CMP, LIPID, URIC #### [facility] [address] [address] [address] Sarmad Patino EGFR-NON AF DUTCH >60 Normal >=60 [facility] Comment on above: Performed By: #### D DAVIDSON, MG, PHOS, CMP, LIPID, URIC #### [facility] [address] [address] [address] Sarmad Patino Globulin (S) [Mass/Vol] 3.8 g/dL Normal [facility] Comment on above: Performed By: #### D DAVIDSON, MG, PHOS, CMP, LIPID, URIC #### [facility] [address] [address] [address] Sarmad Patino Glucose [Mass/Vol] 104 mg/dL Normal 74-106 [facility] Comment on above: Performed By: #### D DAVIDSON, MG, PHOS, CMP, LIPID, URIC #### [facility] [address] [address] [address] Sarmad Patino Potassium [Moles/Vol] 4.0 mmol/L Normal 3.5-5.1 [facility] Comment on above: Performed By: #### D DAVIDSON, MG, PHOS, CMP, LIPID, URIC #### [facility] [address] [address] [address] Sarmad Patino Protein [Mass/Vol] 7.5 g/dL Normal 6.4-8.2 [facility] Comment on above: Performed By: #### D DAVIDSON, MG, PHOS, CMP, LIPID, URIC #### [facility] [address] [address] [address] Sarmad Patino Sodium [Moles/Vol] 140 mmol/L Normal 136-145 [facility] Comment on above: Performed By: #### D DAVIDSON, MG, PHOS, CMP, LIPID, URIC #### [facility] [address] [place] [address] Dr. Sarmad Patino Urea nitrogen [Mass/Vol] 19.0 mg/dL Critically high 7.0-18.0 [facility] Comment on above: Performed By: #### D DAVIDSON, MG, PHOS, CMP, LIPID, URIC #### [facility] [address] [place] [address] Dr. Sarmad Patino Urea nitrogen/Creatinine [Mass ratio] 21.8 mg/mg Normal [facility] Comment on above: Performed By: #### D DAVIDSON, MG, PHOS, CMP, LIPID, URIC #### [facility] [address] [place] [address] Dr. Sarmad Patino URIC ACID SERUMon 12-05-2021 Urate [Mass/Vol] 5.2 mg/dL Normal 2.6-6.0 [facility] Comment on above: Performed By: #### D DAVIDSON, MG, PHOS, CMP, LIPID, URIC #### [facility] [address] [place] [address] Dr. Sarmad Patino EVEROLIMU, WHOLE BLOODon EVEROLIMUS 7.0 ng/mL Normal 3.0-8.0 [facility] Comment on above: Result Comment: Perf ormed by LC-MS/MS technology. Performed By: #### D DAVIDSON, MG, PHOS, CMP, LIPID, URIC #### [facility] [address] [place] [address] Dr. Sarmad Patino FK506 (TACROLIMUS) WHOLE BLO ODon 11-10-2021 Tacrolimus (FK506), Blood 6.4 ng/mL Normal 2.0-20.0 [facility] Comment on above: Result Comment: Trou gh (immediately following transplant) 15.0 . Trough (steady state, 2 weeks or more after transplant): 3.0 - 8.0 . Performed by LC-MS/MS technology. Performed By: #### D DAVIDSON, MG, PHOS, CMP, LIPID, URIC #### [facility] [address] [place] [address] Dr. Sarmad Patino BK VIRUS PCR QUANTon 022 BKV DNA QUANT PCR PLASMA Negative Normal Negative [facility] Comment on above: Result Comment: No B K DNA detected. . The linear range of the assay is 22 - 100,000,000 IU/mL. Performed By: #### U JUVE, LIPID, MG, CMP, DBIL, PHOS #### [facility] [address] [place] [address] Dr. Sarmad Patino Log10 BKV DNA Plasma Normal [facility] Comment on above: Performed By: #### U JUVE, LIPID, MG, CMP, DBIL, PHOS #### [facility] [address] [place] [address] Dr. Sarmad Patino BILIRUBIN CONJUGATED (DIRECT )on 11-07-2021 BILI, CONJUGATED 0.1 mg/dL Normal 0.0-0.2 [facility] Comment on above: Performed By: #### D DAVIDSON, MG, PHOS, CMP, LIPID, URIC #### [facility] [address] [place] [address] Dr. Sarmad Patino CBC AUTO DIFFon 11-07-2021 BASO # 0.0 103/ul Normal 0.0-0.1 [facility] Comment on above: Performed By: #### D DAVIDSON, MG, PHOS, CMP, LIPID, URIC #### [facility] [address] [place] [address] Dr. Sarmad Patino Basophils/100 WBC (Bld) 0.3 % Normal 0.2-2.0 [facility] Comment on above: Performed By: #### D DAVIDSON, MG, PHOS, CMP, LIPID, URIC #### [facility] [address] [place] [address] Dr. Sarmad Patino EO # 0.1 103/ul Normal 0.0-0.7 [facility] Comment on above: Performed By: #### D DAVIDSON, MG, PHOS, CMP, LIPID, URIC #### [facility] [address] [place] [address] Dr. Sarmad Patino Eosinophils/100 WBC (Bld) 2.1 % Normal 0.9-7.0 [facility] Comment on above: Performed By: #### D DAVIDSON, MG, PHOS, CMP, LIPID, URIC #### [facility] [address] [place] [address] Dr. Sarmad Patino Erythrocyte distribution width (RBC) [Ratio] 13.5 % Normal 11.0-15.0 [facility] Comment on above: Performed By: #### D DAVIDSON, MG, PHOS, CMP, LIPID, URIC #### [facility] [address] [place] [address] Dr. Sarmad Patino Hematocrit (Bld) [Volume fraction] 46.7 % Normal 36.0-48.0 [facility] Comment on above: Performed By: #### D DAVIDSON, MG, PHOS, CMP, LIPID, URIC #### [facility] [address] [place] [address] Dr. Sarmad Patino Hemoglobin (Bld) [Mass/Vol] 15.1 g/dL Normal 12.0-16.0 [facility] Comment on above: Performed By: #### D DAVIDSON, MG, PHOS, CMP, LIPID, URIC #### [facility] [address] [place] [address] Dr. Sarmad Patino IG # 0.03 10e3/ul Normal 0.00-0.03 [facility] Comment on above: Performed By: #### D DAVIDSON, MG, PHOS, CMP, LIPID, URIC #### [facility] [address] [place] [address] Dr. Sarmad Patino IG % 0.5 % Normal 0.0-0.5 [facility] Comment on above: Performed By: #### D DAVIDSON, MG, PHOS, CMP, LIPID, URIC #### [facility] [address] [place] [address] Dr. Sarmad Patino LYMPH # 1.3 103/ul Normal 1.2-3.8 [facility] Comment on above: Performed By: #### D DAVIDSON, MG, PHOS, CMP, LIPID, URIC #### [facility] [address] [place] [address] Dr. Sarmad Patino Lymphocytes/100 WBC (Bld) 19.9 % Critically low 20.5-60.0 [facility] Comment on above: Performed By: #### D DAVIDSON, MG, PHOS, CMP, LIPID, URIC #### [facility] [address] [place] [address] Dr. Sarmad Patino MANUAL DIFF REQ NO Normal [facility] Comment on above: Performed By: #### D DAVIDSON, MG, PHOS, CMP, LIPID, URIC #### [facility] [address] [place] [address] Dr. Sarmad Patino MCH (RBC) [Entitic mass] 28.6 pg Normal 26.7-34.0 [facility] Comment on above: Performed By: #### D DAVIDSON, MG, PHOS, CMP, LIPID, URIC #### [facility] [address] [place] [address] Dr. Sarmad Patino MCHC (RBC) [Mass/Vol] 32.3 g/dL Normal 29.9-35.2 [facility] Comment on above: Performed By: #### D DAVIDSON, MG, PHOS, CMP, LIPID, URIC #### [facility] [address] [place] [address] Dr. Sarmad Patino MCV (RBC) [Entitic vol] 88.4 fL Normal 81.0-99.0 [facility] Comment on above: Performed By: #### D DAVIDSON, MG, PHOS, CMP, LIPID, URIC #### [facility] [address] [place] [address] Dr. Sarmad Patino MONO # 0.8 103/ul Normal 0.3-0.8 [facility] Comment on above: Performed By: #### D DAVIDSON, MG, PHOS, CMP, LIPID, URIC #### [facility] [address] [place] [address] Dr. Sarmad Patino Monocytes/100 WBC (Bld) 12.9 % Critically high 1.7-12.0 [facility] Comment on above: Performed By: #### D DAVIDSON, MG, PHOS, CMP, LIPID, URIC #### [facility] [address] [place] [address] Dr. Sarmad Patino NEUT # 4.0 103/ul Normal 1.4-6.5 [facility] Comment on above: Performed By: #### D DAVIDSON, MG, PHOS, CMP, LIPID, URIC #### [facility] [address] [address] [address] Sarmad Patino Neutrophils/100 WBC (Bld) 64.3 % Normal 43.0-75.0 [facility] Comment on above: Performed By: #### D DAVIDSON, MG, PHOS, CMP, LIPID, URIC #### [facility] [address] [address] [address] Sarmad Patino Platelet mean volume (Bld) [Entitic vol] 11.3 fL Normal 9.5-13.5 [facility] Comment on above: Performed By: #### D DAVIDSON, MG, PHOS, CMP, LIPID, URIC #### [facility] [address] [place] [address] Dr. Sarmad Patino PLT 241 103/ul Normal 150-450 [facility] Comment on above: Performed By: #### D DAVIDSON, MG, PHOS, CMP, LIPID, URIC #### [facility] [address] [address] [address] Sarmad Patino RBC 5.28 106/ul Normal 4.20-5.40 [facility] Comment on above: Performed By: #### D DAVIDSON, MG, PHOS, CMP, LIPID, URIC #### [facility] [address] [place] [address] Dr. Sarmad Patino WBC 6.3 103/ul Normal 4.0-11.0 [facility] Comment on above: Performed By: #### D DAVIDSON, MG, PHOS, CMP, LIPID, URIC #### [facility] [address] [place] [address] Dr. Sarmad Patino GLYCOHEMOGLOBIN A1Con 2021 ADA RECOMMENDATION SEE BELOW Normal [facility] Comment on above: Result Comment: ADA RECOMMENDED LIMIT 4.0 - 6.0 ADA THERAPEUTIC TARGET < 7.0 ACTION SUGGESTED > 7.0 Performed By: #### D DAVIDSON, MG, PHOS, CMP, LIPID, URIC #### [facility] [address] [place] [address] Dr. Sarmad Patino Glucose [Mass/Vol] 120 mg/dL Normal [facility] Comment on above: Performed By: #### D DAVIDSON, MG, PHOS, CMP, LIPID, URIC #### [facility] [address] [address] [address] Sarmad Patino HbA1c (Bld) [Mass fraction] 5.8 % Normal 4.5-6.2 [facility] Comment on above: Performed By: #### D DAVIDSON, MG, PHOS, CMP, LIPID, URIC #### [facility] [address] [address] [address] Sarmad Patino LIPID PROFILEon 11-07-2021 CHOL-HDL RATIO NORM SEE BELOW Normal [facility] Comment on above: Result Comment: 3.3 - 4.4 LOW RISK 4.4 - 7.1 AVERAGE RISK 7.1 - 11.0 MODERATE RISK >11.0 HIGH RISK Performed By: #### D DAVIDSON, MG, PHOS, CMP, LIPID, URIC #### [facility] [address] [place] [address] Dr. Sarmad Patino Cholesterol [Mass/Vol] 157 mg/dL Normal <=200 [facility] Comment on above: Performed By: #### D DAVIDSON, MG, PHOS, CMP, LIPID, URIC #### [facility] [address] [place] [address] Dr. Sarmad Patino Cholesterol in HDL [Mass/Vol] 48 mg/dL Normal 40-60 [facility] Comment on above: Performed By: #### D DAVIDSON, MG, PHOS, CMP, LIPID, URIC #### [facility] [address] [address] [address] Sarmad Patino Cholesterol in LDL [Mass/Vol] 89.6 mg/dL Normal [facility] Comment on above: Performed By: #### D DAVIDSON, MG, PHOS, CMP, LIPID, URIC #### [facility] [address] [place] [address] Dr. Sarmad Patino Cholesterol.total/Cho lesterol in HDL [Mass ratio] 3.3 {ratio} Normal [facility] Comment on above: Performed By: #### D DAVIDSON, MG, PHOS, CMP, LIPID, URIC #### [facility] [address] [address] [address] Sarmad Patino HDL NORMAL > or = 60 mg/dl - LO W CARDIOVASCULAR RISK <40 mg/dl - HIGH CARDIOVASCULAR RISK Normal [facility] Comment on above: Performed By: #### D DAVIDSON, MG, PHOS, CMP, LIPID, URIC #### [facility] [address] [address] [address] Sarmad Patino LDL CALC NORMAL SEE BELOW Normal [facility] Comment on above: Result Comment: <100 mg/dl OPTIMAL 100 - 129 mg/dl NEAR OR ABOVE OPTIMAL 130 - 159 mg/dl BORDERLINE HIGH 160 - 189 mg/dl HIGH >190 mg/dl VERY HIGH Performed By: #### D DAVIDSON, MG, PHOS, CMP, LIPID, URIC #### [facility] [address] [place] [address] Dr. Sarmad Patino Triglyceride [Mass/Vol] 97 mg/dL Normal <=150 [facility] Comment on above: Performed By: #### D DAVIDSON, MG, PHOS, CMP, LIPID, URIC #### [facility] [address] [address] [address] Sarmad Patino VLDL CALC 19.4 mg/dL Normal [facility] Comment on above: Performed By: #### D DAVIDSON, MG, PHOS, CMP, LIPID, URIC #### [facility] [address] [place] [address] Dr. Sarmad Patino MAGNESIUMon 11-07-2021 Magnesium [Mass/Vol] 1.9 mg/dL Normal 1.8-2.4 [facility] Comment on above: Performed By: #### D DAVIDSON, MG, PHOS, CMP, LIPID, URIC #### [facility] [address] [address] [address] Sarmad Patino PHOSPHORUSon 11-07-2021 Phosphate [Mass/Vol] 3.4 mg/dL Normal 2.6-4.7 [facility] Comment on above: Performed By: #### D DAVIDSON, MG, PHOS, CMP, LIPID, URIC #### [facility] [address] [place] [address] Dr. Sarmad Patino PROF 14(COMP METB)on 022 Albumin [Mass/Vol] 3.6 g/dL Normal 3.4-5.0 [facility] Comment on above: Performed By: #### D DAVIDSON, MG, PHOS, CMP, LIPID, URIC #### [facility] [address] [place] [address] Dr. Sarmad Patino Albumin/Globulin [Mass ratio] 0.9 {ratio} Normal [facility] Comment on above: Performed By: #### D DAVIDSON, MG, PHOS, CMP, LIPID, URIC #### [facility] [address] [address] [address] Sarmad Patino ALP [Catalytic activity/Vol] 158 U/L Critically high 46-116 [facility] Comment on above: Performed By: #### D DAVIDSON, MG, PHOS, CMP, LIPID, URIC #### [facility] [address] [place] [address] Dr. Sarmad Patino ALT [Catalytic activity/Vol] 23 U/L Normal 14-59 [facility] Comment on above: Performed By: #### D DAVIDSON, MG, PHOS, CMP, LIPID, URIC #### [facility] [address] [address] [address] Sarmad Patino Anion gap [Moles/Vol] 14.8 mmol/L Normal [facility] Comment on above: Performed By: #### D DAVIDSON, MG, PHOS, CMP, LIPID, URIC #### [facility] [address] [place] [address] Dr. Sarmad Patino AST [Catalytic activity/Vol] 18 U/L Normal 15-37 [facility] Comment on above: Performed By: #### D DAVIDSON, MG, PHOS, CMP, LIPID, URIC #### [facility] [address] [place] [address] Dr. Sarmad Patino Bilirubin [Mass/Vol] 0.4 mg/dL Normal 0.2-1.0 [facility] Comment on above: Performed By: #### D DAVIDSON, MG, PHOS, CMP, LIPID, URIC #### [facility] [address] [place] [address] Dr. Sarmad Patino Calcium [Mass/Vol] 9.3 mg/dL Normal 8.5-10.1 [facility] Comment on above: Performed By: #### D DAVIDSON, MG, PHOS, CMP, LIPID, URIC #### [facility] [address] [address] [address] Sarmad Patino Chloride [Moles/Vol] 105 mmol/L Normal 98-107 [facility] Comment on above: Performed By: #### D DAVIDSON, MG, PHOS, CMP, LIPID, URIC #### [facility] [address] [address] [address] Sarmad Patino CO2 [Moles/Vol] 26.1 mmol/L Normal 21.0-32.0 [facility] Comment on above: Performed By: #### D DAVIDSON, MG, PHOS, CMP, LIPID, URIC #### [facility] [address] [place] [address] Dr. Sarmad Patino Creatinine [Mass/Vol] 0.84 mg/dL Normal 0.55-1.02 [facility] Comment on above: Performed By: #### D DAVIDSON, MG, PHOS, CMP, LIPID, URIC #### [facility] [address] [address] [address] Sarmad Patino EGFR-AF DUTCH >60 Normal >=60 [facility] Comment on above: Performed By: #### D DAVIDSON, MG, PHOS, CMP, LIPID, URIC #### [facility] [address] [place] [address] Dr. Sarmad Patino EGFR-NON AF DUTCH >60 Normal >=60 [facility] Comment on above: Performed By: #### D DAVIDSON, MG, PHOS, CMP, LIPID, URIC #### [facility] [address] [address] [address] Sarmad Patino Globulin (S) [Mass/Vol] 3.8 g/dL Normal [facility] Comment on above: Performed By: #### D DAVIDSON, MG, PHOS, CMP, LIPID, URIC #### [facility] [address] [address] [address] Sarmad Patino Glucose [Mass/Vol] 97 mg/dL Normal 74-106 [facility] Comment on above: Performed By: #### D DAVIDSON, MG, PHOS, CMP, LIPID, URIC #### [facility] [address] [address] [address] Sarmad Patino Potassium [Moles/Vol] 3.9 mmol/L Normal 3.5-5.1 [facility] Comment on above: Performed By: #### D DAVIDSON, MG, PHOS, CMP, LIPID, URIC #### [facility] [address] [place] [address] Dr. Sarmad Patino Protein [Mass/Vol] 7.4 g/dL Normal 6.4-8.2 [facility] Comment on above: Performed By: #### D DAVIDSON, MG, PHOS, CMP, LIPID, URIC #### [facility] [address] [place] [address] Dr. Sarmad Patino Sodium [Moles/Vol] 142 mmol/L Normal 136-145 [facility] Comment on above: Performed By: #### D DAVIDSON, MG, PHOS, CMP, LIPID, URIC #### [facility] [address] [address] [address] Sarmad Patino Urea nitrogen [Mass/Vol] 21.0 mg/dL Critically high 7.0-18.0 [facility] Comment on above: Performed By: #### D DAVIDSON, MG, PHOS, CMP, LIPID, URIC #### [facility] [address] [place] [address] Dr. Sarmad Patino Urea nitrogen/Creatinine [Mass ratio] 25.0 mg/mg Normal [facility] Comment on above: Performed By: #### D DAVIDSON, MG, PHOS, CMP, LIPID, URIC #### [facility] [address] [place] [address] Dr. Sarmad Patino URIC ACID SERUMon 11-07-2021 Urate [Mass/Vol] 5.1 mg/dL Normal 2.6-6.0 [facility] Comment on above: Performed By: #### D DAVIDSON, MG, PHOS, CMP, LIPID, URIC #### [facility] [address] [place] [address] Dr. Sarmad Patino BOX TEST SENT OUTon 10-16-19 22 SENT TO REF LAB 10/15/2021 Normal [facility] Comment on above: Performed By: #### D DAVIDSON, MG, PHOS, CMP, LIPID, URIC #### [facility] [address] [place] [address] Dr. Sarmad Patino EVEROLIMU, WHOLE BLOODon EVEROLIMUS 6.7 ng/mL Normal 3.0-8.0 [facility] Comment on above: Result Comment: Perf ormed by LC-MS/MS technology. Performed By: #### D DAVIDSON, MG, PHOS, CMP, LIPID, URIC #### [facility] [address] [place] [address] Dr. Sarmad Patino FK506 (TACROLIMUS) WHOLE BLO ODon 10-10-2021 Tacrolimus (FK506), Blood 5.9 ng/mL Normal 2.0-20.0 [facility] Comment on above: Result Comment: Trou gh (immediately following transplant) 15.0 . Trough (steady state, 2 weeks or more after transplant): 3.0 - 8.0 . Performed by LC-MS/MS technology. Performed By: #### D DAVIDSON, MG, PHOS, CMP, LIPID, URIC #### [facility] [address] [place] [address] Dr. Sarmad Patino BILIRUBIN CONJUGATED (DIRECT )on 10-08-2021 BILI, CONJUGATED 0.1 mg/dL Normal 0.0-0.2 [facility] Comment on above: Performed By: #### U JUVE, LIPID, MG, CMP, DBIL, PHOS #### [facility] [address] [place] [address] Dr. Sarmad Patino CBC AUTO DIFFon 10-08-2021 BASO # 0.0 103/ul Normal 0.0-0.1 [facility] Comment on above: Performed By: #### D DAVIDSON, MG, PHOS, CMP, LIPID, URIC #### [facility] [address] [place] [address] Dr. Sarmad Patino Basophils/100 WBC (Bld) 0.1 % Critically low 0.2-2.0 [facility] Comment on above: Performed By: #### D DAVIDSON, MG, PHOS, CMP, LIPID, URIC #### [facility] [address] [place] [address] Dr. Sarmad Patino EO # 0.1 103/ul Normal 0.0-0.7 [facility] Comment on above: Performed By: #### D DAVIDSON, MG, PHOS, CMP, LIPID, URIC #### [facility] [address] [place] [address] Dr. Sarmad Patino Eosinophils/100 WBC (Bld) 1.4 % Normal 0.9-7.0 [facility] Comment on above: Performed By: #### D DAVIDSON, MG, PHOS, CMP, LIPID, URIC #### [facility] [address] [place] [address] Dr. Sarmad Patino Erythrocyte distribution width (RBC) [Ratio] 13.6 % Normal 11.0-15.0 [facility] Comment on above: Performed By: #### D DAVIDSON, MG, PHOS, CMP, LIPID, URIC #### [facility] [address] [place] [address] Dr. Sarmad Patino Hematocrit (Bld) [Volume fraction] 47.5 % Normal 36.0-48.0 [facility] Comment on above: Performed By: #### D DAVIDSON, MG, PHOS, CMP, LIPID, URIC #### [facility] [address] [place] [address] Dr. Sarmad Patino Hemoglobin (Bld) [Mass/Vol] 15.7 g/dL Normal 12.0-16.0 [facility] Comment on above: Performed By: #### D DAVIDSON, MG, PHOS, CMP, LIPID, URIC #### [facility] [address] [place] [address] Dr. Sarmad Patino IG # 0.04 10e3/ul Critically high 0.00-0.03 [facility] Comment on above: Performed By: #### D DAVIDSON, MG, PHOS, CMP, LIPID, URIC #### [facility] [address] [place] [address] Dr. Sarmad Patino IG % 0.5 % Normal 0.0-0.5 [facility] Comment on above: Performed By: #### D DAVIDSON, MG, PHOS, CMP, LIPID, URIC #### [facility] [address] [place] [address] Dr. Sarmad Patino LYMPH # 1.3 103/ul Normal 1.2-3.8 [facility] Comment on above: Performed By: #### D DAVIDSON, MG, PHOS, CMP, LIPID, URIC #### [facility] [address] [place] [address] Dr. Sarmad Patino Lymphocytes/100 WBC (Bld) 15.4 % Critically low 20.5-60.0 [facility] Comment on above: Performed By: #### D DAVIDSON, MG, PHOS, CMP, LIPID, URIC #### [facility] [address] [place] [address] Dr. Sarmad Patino MANUAL DIFF REQ NO Normal [facility] Comment on above: Performed By: #### D DAVIDSON, MG, PHOS, CMP, LIPID, URIC #### [facility] [address] [place] [address] Dr. Sarmad Patino MCH (RBC) [Entitic mass] 29.1 pg Normal 26.7-34.0 [facility] Comment on above: Performed By: #### D DAVIDSON, MG, PHOS, CMP, LIPID, URIC #### [facility] [address] [place] [address] Dr. Sarmad Patino MCHC (RBC) [Mass/Vol] 33.1 g/dL Normal 29.9-35.2 [facility] Comment on above: Performed By: #### D DAVIDSON, MG, PHOS, CMP, LIPID, URIC #### [facility] [address] [place] [address] Dr. Sarmad Patino MCV (RBC) [Entitic vol] 88.0 fL Normal 81.0-99.0 [facility] Comment on above: Performed By: #### D DAVIDSON, MG, PHOS, CMP, LIPID, URIC #### [facility] [address] [place] [address] Dr. Sarmad Patino MONO # 0.9 103/ul Critically high 0.3-0.8 [facility] Comment on above: Performed By: #### D DAVIDSON, MG, PHOS, CMP, LIPID, URIC #### [facility] [address] [place] [address] Dr. Sarmad Patino Monocytes/100 WBC (Bld) 10.2 % Normal 1.7-12.0 [facility] Comment on above: Performed By: #### D DAVIDSON, MG, PHOS, CMP, LIPID, URIC #### [facility] [address] [place] [address] Dr. Sarmad Patino NEUT # 6.1 103/ul Normal 1.4-6.5 [facility] Comment on above: Performed By: #### D DAVIDSON, MG, PHOS, CMP, LIPID, URIC #### [facility] [address] [place] [address] Dr. Sarmad Patino Neutrophils/100 WBC (Bld) 72.4 % Normal 43.0-75.0 [facility] Comment on above: Performed By: #### D DAVIDSON, MG, PHOS, CMP, LIPID, URIC #### [facility] [address] [place] [address] Dr. Sarmad Patino Platelet mean volume (Bld) [Entitic vol] 11.1 fL Normal 9.5-13.5 [facility] Comment on above: Performed By: #### D DAVIDSON, MG, PHOS, CMP, LIPID, URIC #### [facility] [address] [place] [address] Dr. Sarmad Patino PLT 213 103/ul Normal 150-450 [facility] Comment on above: Performed By: #### D DAVIDSON, MG, PHOS, CMP, LIPID, URIC #### [facility] [address] [place] [address] Dr. Sarmad Patino RBC 5.40 106/ul Normal 4.20-5.40 [facility] Comment on above: Performed By: #### D DAVIDSON, MG, PHOS, CMP, LIPID, URIC #### [facility] [address] [place] [address] Dr. Sarmad Patino WBC 8.4 103/ul Normal 4.0-11.0 [facility] Comment on above: Performed By: #### D DAVIDSON, MG, PHOS, CMP, LIPID, URIC #### [facility] [address] [address] [address] Sarmad Patino LIPID PROFILEon 10-08-2021 CHOL-HDL RATIO NORM SEE BELOW Normal [facility] Comment on above: Result Comment: 3.3 - 4.4 LOW RISK 4.4 - 7.1 AVERAGE RISK 7.1 - 11.0 MODERATE RISK >11.0 HIGH RISK Performed By: #### D DAVIDSON, MG, PHOS, CMP, LIPID, URIC #### [facility] [address] [address] [address] Sarmad Patino Cholesterol [Mass/Vol] 155 mg/dL Normal <=200 [facility] Comment on above: Performed By: #### D DAVIDSON, MG, PHOS, CMP, LIPID, URIC #### [facility] [address] [address] [address] Sarmad Patino Cholesterol in HDL [Mass/Vol] 49 mg/dL Normal 40-60 [facility] Comment on above: Performed By: #### D DAVIDSON, MG, PHOS, CMP, LIPID, URIC #### [facility] [address] [address] [address] Sarmad Patino Cholesterol in LDL [Mass/Vol] 73.8 mg/dL Normal [facility] Comment on above: Performed By: #### D DAVIDSON, MG, PHOS, CMP, LIPID, URIC #### [facility] [address] [address] [address] Sarmad Patino Cholesterol.total/Cho lesterol in HDL [Mass ratio] 3.2 {ratio} Normal [facility] Comment on above: Performed By: #### D DAVIDSON, MG, PHOS, CMP, LIPID, URIC #### [facility] [address] [address] [address] Sarmad Patino HDL NORMAL > or = 60 mg/dl - LO W CARDIOVASCULAR RISK <40 mg/dl - HIGH CARDIOVASCULAR RISK Normal [facility] Comment on above: Performed By: #### D DAVIDSON, MG, PHOS, CMP, LIPID, URIC #### [facility] [address] [address] [address] Sarmad Patino LDL CALC NORMAL SEE BELOW Normal [facility] Comment on above: Result Comment: <100 mg/dl OPTIMAL 100 - 129 mg/dl NEAR OR ABOVE OPTIMAL 130 - 159 mg/dl BORDERLINE HIGH 160 - 189 mg/dl HIGH >190 mg/dl VERY HIGH Performed By: #### D DAVIDSON, MG, PHOS, CMP, LIPID, URIC #### [facility] [address] [address] [address] Sarmad Patino Triglyceride [Mass/Vol] 161 mg/dL Critically high <=150 [facility] Comment on above: Performed By: #### D DAVIDSON, MG, PHOS, CMP, LIPID, URIC #### [facility] [address] [address] [address] Sarmad Patino VLDL CALC 32.2 mg/dL Normal [facility] Comment on above: Performed By: #### D DAVIDSON, MG, PHOS, CMP, LIPID, URIC #### [facility] [address] [address] [address] Sarmad Patino MAGNESIUMon 10-08-2021 Magnesium [Mass/Vol] 1.6 mg/dL Critically low 1.8-2.4 [facility] Comment on above: Performed By: #### U JUVE, LIPID, MG, CMP, DBIL, PHOS #### [facility] [address] [address] [address] Sarmad Patino PHOSPHORUSon 10-08-2021 Phosphate [Mass/Vol] 3.5 mg/dL Normal 2.6-4.7 [facility] Comment on above: Performed By: #### U JUVE, LIPID, MG, CMP, DBIL, PHOS #### [facility] [address] [address] [address] Sarmad Patino PROF 14(COMP METB)on 022 Albumin [Mass/Vol] 3.6 g/dL Normal 3.4-5.0 [facility] Comment on above: Performed By: #### D DAVIDSON, MG, PHOS, CMP, LIPID, URIC #### [facility] [address] [place] [address] Dr. Sarmad Patino Albumin/Globulin [Mass ratio] 0.9 {ratio} Normal [facility] Comment on above: Performed By: #### D DAVIDSON, MG, PHOS, CMP, LIPID, URIC #### [facility] [address] [place] [address] Dr. Sarmad Patino ALP [Catalytic activity/Vol] 150 U/L Critically high 46-116 [facility] Comment on above: Performed By: #### D DAVIDSON, MG, PHOS, CMP, LIPID, URIC #### [facility] [address] [place] [address] Dr. Sarmad Patino ALT [Catalytic activity/Vol] 21 U/L Normal 14-59 [facility] Comment on above: Performed By: #### D DAVIDSON, MG, PHOS, CMP, LIPID, URIC #### [facility] [address] [place] [address] Dr. Sarmad Patino Anion gap [Moles/Vol] 14.0 mmol/L Normal [facility] Comment on above: Performed By: #### D DAVIDSON, MG, PHOS, CMP, LIPID, URIC #### [facility] [address] [place] [address] Dr. Sarmad Patino AST [Catalytic activity/Vol] 13 U/L Critically low 15-37 [facility] Comment on above: Performed By: #### D DAVIDSON, MG, PHOS, CMP, LIPID, URIC #### [facility] [address] [place] [address] Dr. Sarmad Patino Bilirubin [Mass/Vol] 0.5 mg/dL Normal 0.2-1.0 [facility] Comment on above: Performed By: #### D DAVIDSON, MG, PHOS, CMP, LIPID, URIC #### [facility] [address] [place] [address] Dr. Sarmad Patino Calcium [Mass/Vol] 9.8 mg/dL Normal 8.5-10.1 [facility] Comment on above: Performed By: #### D DAVIDSON, MG, PHOS, CMP, LIPID, URIC #### [facility] [address] [address] [address] Sarmad Patino Chloride [Moles/Vol] 105 mmol/L Normal 98-107 [facility] Comment on above: Performed By: #### D DAVIDSON, MG, PHOS, CMP, LIPID, URIC #### [facility] [address] [address] [address] Sarmad Patino CO2 [Moles/Vol] 25.9 mmol/L Normal 21.0-32.0 [facility] Comment on above: Performed By: #### D DAVIDSON, MG, PHOS, CMP, LIPID, URIC #### [facility] [address] [address] [address] Sarmad Patino Creatinine [Mass/Vol] 0.81 mg/dL Normal 0.55-1.02 [facility] Comment on above: Performed By: #### D DAVIDSON, MG, PHOS, CMP, LIPID, URIC #### [facility] [address] [address] [address] Sarmad Patino EGFR-AF DUTCH >60 Normal >=60 [facility] Comment on above: Performed By: #### D DAVIDSON, MG, PHOS, CMP, LIPID, URIC #### [facility] [address] [place] [address] Dr. Sarmad Patino EGFR-NON AF DUTCH >60 Normal >=60 [facility] Comment on above: Performed By: #### D DAVIDSON, MG, PHOS, CMP, LIPID, URIC #### [facility] [address] [address] [address] Sarmad Patino Globulin (S) [Mass/Vol] 3.8 g/dL Normal [facility] Comment on above: Performed By: #### D DAVIDSON, MG, PHOS, CMP, LIPID, URIC #### [facility] [address] [address] [address] Sarmad Patino Glucose [Mass/Vol] 101 mg/dL Normal 74-106 [facility] Comment on above: Performed By: #### D DAVIDSON, MG, PHOS, CMP, LIPID, URIC #### [facility] [address] [address] [address] Sarmad Patino Potassium [Moles/Vol] 3.9 mmol/L Normal 3.5-5.1 [facility] Comment on above: Performed By: #### D DAVIDSON, MG, PHOS, CMP, LIPID, URIC #### [facility] [address] [address] [address] Sarmad Patino Protein [Mass/Vol] 7.4 g/dL Normal 6.4-8.2 [facility] Comment on above: Performed By: #### D DAVIDSON, MG, PHOS, CMP, LIPID, URIC #### [facility] [address] [address] [address] Sarmad Patino Sodium [Moles/Vol] 141 mmol/L Normal 136-145 [facility] Comment on above: Performed By: #### D DAVIDSON, MG, PHOS, CMP, LIPID, URIC #### [facility] [address] [place] [address] Dr. Sarmad Patino Urea nitrogen [Mass/Vol] 18.0 mg/dL Normal 7.0-18.0 [facility] Comment on above: Performed By: #### D DAVIDSON, MG, PHOS, CMP, LIPID, URIC #### [facility] [address] [place] [address] Dr. Sarmad Patino Urea nitrogen/Creatinine [Mass ratio] 22.2 mg/mg Normal [facility] Comment on above: Performed By: #### D DAVIDSON, MG, PHOS, CMP, LIPID, URIC #### [facility] [address] [place] [address] Dr. Sarmad Patino URIC ACID SERUMon 10-08-2021 Urate [Mass/Vol] 4.7 mg/dL Normal 2.6-6.0 [facility] Comment on above: Performed By: #### D DAVIDSON, MG, PHOS, CMP, LIPID, URIC #### [facility] [address] [place] [address] Dr. Sarmad CHRISTIEMU, WHOLE BLOODon EVEROLIMUS 8.0 ng/mL Normal 3.0-8.0 [facility] Comment on above: Result Comment: Perf ormed by LC-MS/MS technology. Performed By: #### U JUVE, LIPID, MG, CMP, DBIL, PHOS #### [facility] [address] [place] [address] Dr. Sarmad Patino FK506 (TACROLIMUS) WHOLE BLO ODon 09-14-2021 Tacrolimus (FK506), Blood 9.3 ng/mL Normal 2.0-20.0 [facility] Comment on above: Result Comment: Trou gh (immediately following transplant) 15.0 . Trough (steady state, 2 weeks or more after transplant): 3.0 - 8.0 . Performed by LC-MS/MS technology. Performed By: #### U JUVE, LIPID, MG, CMP, DBIL, PHOS #### [facility] [address] [place] [address] Dr. Sarmad Patino BK VIRUS PCR QUANTon 022 BKV DNA QUANT PCR PLASMA Negative Normal Negative [facility] Comment on above: Result Comment: No B K DNA detected. . The linear range of the assay is 22 - 100,000,000 IU/mL. Performed By: #### D DAVIDSON, MG, PHOS, CMP, LIPID, URIC #### [facility] [address] [address] [address] Sarmad Patino Log10 BKV DNA Plasma Normal [facility] Comment on above: Performed By: #### D DAVIDSON, MG, PHOS, CMP, LIPID, URIC #### [facility] [address] [address] [address] Sarmad Patino BILIRUBIN CONJUGATED (DIRECT )on 09-10-2021 BILI, CONJUGATED 0.1 mg/dL Normal 0.0-0.2 [facility] Comment on above: Performed By: #### D DAVIDSON, MG, PHOS, CMP, LIPID, URIC #### [facility] [address] [place] [address] Dr. Sarmad Patino CBC AUTO DIFFon 09-10-2021 BASO # 0.0 103/ul Normal 0.0-0.1 [facility] Comment on above: Performed By: #### D DAVIDSON, MG, PHOS, CMP, LIPID, URIC #### [facility] [address] [place] [address] Dr. Sarmad Patino Basophils/100 WBC (Bld) 0.1 % Critically low 0.2-2.0 [facility] Comment on above: Performed By: #### D DAVIDSON, MG, PHOS, CMP, LIPID, URIC #### [facility] [address] [place] [address] Dr. Sarmad Patino EO # 0.2 103/ul Normal 0.0-0.7 [facility] Comment on above: Performed By: #### D DAVIDSON, MG, PHOS, CMP, LIPID, URIC #### [facility] [address] [place] [address] Dr. Sarmad Patino Eosinophils/100 WBC (Bld) 2.3 % Normal 0.9-7.0 [facility] Comment on above: Performed By: #### D DAVIDSON, MG, PHOS, CMP, LIPID, URIC #### [facility] [address] [place] [address] Dr. Sarmad Patino Erythrocyte distribution width (RBC) [Ratio] 13.6 % Normal 11.0-15.0 [facility] Comment on above: Performed By: #### D DAVIDSON, MG, PHOS, CMP, LIPID, URIC #### [facility] [address] [place] [address] Dr. Sarmad Patino Hematocrit (Bld) [Volume fraction] 45.1 % Normal 36.0-48.0 [facility] Comment on above: Performed By: #### D DAVIDSON, MG, PHOS, CMP, LIPID, URIC #### [facility] [address] [place] [address] Dr. Sarmad Patino Hemoglobin (Bld) [Mass/Vol] 14.7 g/dL Normal 12.0-16.0 [facility] Comment on above: Performed By: #### D DAVIDSON, MG, PHOS, CMP, LIPID, URIC #### [facility] [address] [place] [address] Dr. Sarmad Patino IG # 0.03 10e3/ul Normal 0.00-0.03 [facility] Comment on above: Performed By: #### D DAVIDSON, MG, PHOS, CMP, LIPID, URIC #### [facility] Laboratory [address] [place] [address] Dr. Sarmad Patino IG % 0.4 % Normal 0.0-0.5 [facility] Comment on above: Performed By: #### D DAVIDSON, MG, PHOS, CMP, LIPID, URIC #### [facility] [address] [place] [address] Dr. Sarmad Patino LYMPH # 1.3 103/ul Normal 1.2-3.8 [facility] Comment on above: Performed By: #### D DAVIDSON, MG, PHOS, CMP, LIPID, URIC #### [facility] [address] [place] [address] Dr. Sarmad Patino Lymphocytes/100 WBC (Bld) 18.9 % Critically low 20.5-60.0 [facility] Comment on above: Performed By: #### D DAVIDSON, MG, PHOS, CMP, LIPID, URIC #### [facility] [address] [place] [address] Dr. Sarmad Patino MANUAL DIFF REQ NO Normal [facility] Comment on above: Performed By: #### D DAVIDSON, MG, PHOS, CMP, LIPID, URIC #### [facility] [address] [place] [address] Dr. Sarmad Patino MCH (RBC) [Entitic mass] 29.0 pg Normal 26.7-34.0 [facility] Comment on above: Performed By: #### D DAVIDSON, MG, PHOS, CMP, LIPID, URIC #### [facility] [address] [place] [address] Dr. Sarmad Patino MCHC (RBC) [Mass/Vol] 32.6 g/dL Normal 29.9-35.2 [facility] Comment on above: Performed By: #### D DAVIDSON, MG, PHOS, CMP, LIPID, URIC #### [facility] [address] [place] [address] Dr. Sarmad Patino MCV (RBC) [Entitic vol] 89.0 fL Normal 81.0-99.0 [facility] Comment on above: Performed By: #### D DAVIDSON, MG, PHOS, CMP, LIPID, URIC #### [facility] [address] [place] [address] Dr. Sarmad Patino MONO # 0.8 103/ul Normal 0.3-0.8 [facility] Comment on above: Performed By: #### D DAVIDSON, MG, PHOS, CMP, LIPID, URIC #### [facility] [address] [place] [address] Dr. Sarmad Patino Monocytes/100 WBC (Bld) 11.9 % Normal 1.7-12.0 [facility] Comment on above: Performed By: #### D DAVIDSON, MG, PHOS, CMP, LIPID, URIC #### [facility] [address] [place] [address] Dr. Sarmad Patino NEUT # 4.6 103/ul Normal 1.4-6.5 [facility] Comment on above: Performed By: #### D DAVIDSON, MG, PHOS, CMP, LIPID, URIC #### [facility] [address] [place] [address] Dr. Sarmad Patino Neutrophils/100 WBC (Bld) 66.4 % Normal 43.0-75.0 [facility] Comment on above: Performed By: #### D DAVIDSON, MG, PHOS, CMP, LIPID, URIC #### [facility] [address] [place] [address] Dr. Sramad Patino Platelet mean volume (Bld) [Entitic vol] 10.6 fL Normal 9.5-13.5 [facility] Comment on above: Performed By: #### D DAVIDSON, MG, PHOS, CMP, LIPID, URIC #### [facility] [address] [place] [address] Dr. Sarmad Patino PLT 233 103/ul Normal 150-450 [facility] Comment on above: Performed By: #### D DAVIDSON, MG, PHOS, CMP, LIPID, URIC #### [facility] [address] [place] [address] Dr. Sarmad Patino RBC 5.07 106/ul Normal 4.20-5.40 [facility] Comment on above: Performed By: #### D DAVIDSON, MG, PHOS, CMP, LIPID, URIC #### [facility] [address] [address] [address] Sarmad Patino WBC 6.9 103/ul Normal 4.0-11.0 [facility] Comment on above: Performed By: #### D DAVIDSON, MG, PHOS, CMP, LIPID, URIC #### [facility] [address] [address] [address] Sarmad Patino GLYCOHEMOGLOBIN A1Con 2021 ADA RECOMMENDATION SEE BELOW Normal [facility] Comment on above: Result Comment: ADA RECOMMENDED LIMIT 4.0 - 6.0 ADA THERAPEUTIC TARGET < 7.0 ACTION SUGGESTED > 7.0 Performed By: #### D DAVIDSON, MG, PHOS, CMP, LIPID, URIC #### [facility] [address] [address] [address] Sarmad Patino Glucose [Mass/Vol] 120 mg/dL Normal [facility] Comment on above: Performed By: #### D DAVIDSON, MG, PHOS, CMP, LIPID, URIC #### [facility] [address] [address] [address] Sarmad Patino HbA1c (Bld) [Mass fraction] 5.8 % Normal 4.5-6.2 [facility] Comment on above: Performed By: #### D DAVIDSON, MG, PHOS, CMP, LIPID, URIC #### [facility] [address] [address] [address] Sarmad Patino LIPID PROFILEon 09-10-2021 CHOL-HDL RATIO NORM SEE BELOW Normal [facility] Comment on above: Result Comment: 3.3 - 4.4 LOW RISK 4.4 - 7.1 AVERAGE RISK 7.1 - 11.0 MODERATE RISK >11.0 HIGH RISK Performed By: #### D DAVIDSON, MG, PHOS, CMP, LIPID, URIC #### [facility] [address] [place] [address] Dr. Sarmad Patino Cholesterol [Mass/Vol] 150 mg/dL Normal <=200 [facility] Comment on above: Performed By: #### D DAVIDSON, MG, PHOS, CMP, LIPID, URIC #### [facility] [address] [address] [address] Sarmad Patino Cholesterol in HDL [Mass/Vol] 47 mg/dL Normal 40-60 [facility] Comment on above: Performed By: #### D DAVIDSON, MG, PHOS, CMP, LIPID, URIC #### [facility] [address] [address] [address] Sarmad Patino Cholesterol in LDL [Mass/Vol] 78.4 mg/dL Normal [facility] Comment on above: Performed By: #### D DAVIDSON, MG, PHOS, CMP, LIPID, URIC #### [facility] [address] [address] [address] Sarmad Patino Cholesterol.total/Cho lesterol in HDL [Mass ratio] 3.2 {ratio} Normal [facility] Comment on above: Performed By: #### D DAVIDSON, MG, PHOS, CMP, LIPID, URIC #### [facility] [address] [address] [address] Sarmad Patino HDL NORMAL > or = 60 mg/dl - LO W CARDIOVASCULAR RISK <40 mg/dl - HIGH CARDIOVASCULAR RISK Normal [facility] Comment on above: Performed By: #### D DAVIDSON, MG, PHOS, CMP, LIPID, URIC #### [facility] [address] [address] [address] Sarmad Patino LDL CALC NORMAL SEE BELOW Normal [facility] Comment on above: Result Comment: <100 mg/dl OPTIMAL 100 - 129 mg/dl NEAR OR ABOVE OPTIMAL 130 - 159 mg/dl BORDERLINE HIGH 160 - 189 mg/dl HIGH >190 mg/dl VERY HIGH Performed By: #### D DAVIDSON, MG, PHOS, CMP, LIPID, URIC #### [facility] [address] [address] [address] Sarmad Patino Triglyceride [Mass/Vol] 123 mg/dL Normal <=150 [facility] Comment on above: Performed By: #### D DAVIDSON, MG, PHOS, CMP, LIPID, URIC #### [facility] [address] [address] [address] Sarmad Patino VLDL CALC 24.6 mg/dL Normal [facility] Comment on above: Performed By: #### D DAVIDSON, MG, PHOS, CMP, LIPID, URIC #### [facility] [address] [address] [address] Sarmad Patino MAGNESIUMon 09-10-2021 Magnesium [Mass/Vol] 1.5 mg/dL Critically low 1.8-2.4 [facility] Comment on above: Performed By: #### D DAVIDSON, MG, PHOS, CMP, LIPID, URIC #### [facility] [address] [place] [address] Dr. Sarmad Patino PHOSPHORUSon 09-10-2021 Phosphate [Mass/Vol] 3.8 mg/dL Normal 2.6-4.7 [facility] Comment on above: Performed By: #### D DAVIDSON, MG, PHOS, CMP, LIPID, URIC #### [facility] [address] [place] [address] Dr. Sarmad Patino PROF 14(COMP METB)on 022 Albumin [Mass/Vol] 3.4 g/dL Normal 3.4-5.0 [facility] Comment on above: Performed By: #### D DAVIDSON, MG, PHOS, CMP, LIPID, URIC #### [facility] [address] [place] [address] Dr. Sarmad Patino Albumin/Globulin [Mass ratio] 0.9 {ratio} Normal [facility] Comment on above: Performed By: #### D DAVIDSON, MG, PHOS, CMP, LIPID, URIC #### [facility] [address] [place] [address] Dr. Sarmad Patino ALP [Catalytic activity/Vol] 143 U/L Critically high 46-116 [facility] Comment on above: Performed By: #### D DAVIDSON, MG, PHOS, CMP, LIPID, URIC #### [facility] [address] [place] [address] Dr. Sarmad Patino ALT [Catalytic activity/Vol] 19 U/L Normal 14-59 [facility] Comment on above: Performed By: #### D DAVIDSON, MG, PHOS, CMP, LIPID, URIC #### [facility] [address] [place] [address] Dr. Sarmad Patino Anion gap [Moles/Vol] 13.4 mmol/L Normal [facility] Comment on above: Performed By: #### D DAVIDSON, MG, PHOS, CMP, LIPID, URIC #### [facility] [address] [place] [address] Dr. Sarmad Patino AST [Catalytic activity/Vol] 24 U/L Normal 15-37 [facility] Comment on above: Performed By: #### D DAVIDSON, MG, PHOS, CMP, LIPID, URIC #### [facility] [address] [place] [address] Dr. Sarmad Patino Bilirubin [Mass/Vol] 0.4 mg/dL Normal 0.2-1.0 [facility] Comment on above: Performed By: #### D DAVIDSON, MG, PHOS, CMP, LIPID, URIC #### [facility] [address] [place] [address] Dr. Sarmad Patino Calcium [Mass/Vol] 9.3 mg/dL Normal 8.5-10.1 [facility] Comment on above: Performed By: #### D DAVIDSON, MG, PHOS, CMP, LIPID, URIC #### [facility] [address] [place] [address] Dr. Sarmad Patino Chloride [Moles/Vol] 106 mmol/L Normal 98-107 [facility] Comment on above: Performed By: #### D DAVIDSON, MG, PHOS, CMP, LIPID, URIC #### [facility] [address] [place] [address] Dr. Sarmad Patino CO2 [Moles/Vol] 25.5 mmol/L Normal 21.0-32.0 [facility] Comment on above: Performed By: #### D DAVIDSON, MG, PHOS, CMP, LIPID, URIC #### [facility] [address] [place] [address] Dr. Sarmad Patino Creatinine [Mass/Vol] 0.85 mg/dL Normal 0.55-1.02 [facility] Comment on above: Performed By: #### D DAVIDSON, MG, PHOS, CMP, LIPID, URIC #### [facility] [address] [address] [address] Sarmad Patino EGFR-AF DUTCH >60 Normal >=60 [facility] Comment on above: Performed By: #### D DAVIDSON, MG, PHOS, CMP, LIPID, URIC #### [facility] [address] [place] [address] Dr. Sarmad Patino EGFR-NON AF DUTCH >60 Normal >=60 [facility] Comment on above: Performed By: #### D DAVIDSON, MG, PHOS, CMP, LIPID, URIC #### [facility] [address] [place] [address] Dr. Sarmad Patino Globulin (S) [Mass/Vol] 3.8 g/dL Normal [facility] Comment on above: Performed By: #### D DAVIDSON, MG, PHOS, CMP, LIPID, URIC #### [facility] [address] [place] [address] Dr. Sarmad Patino Glucose [Mass/Vol] 100 mg/dL Normal 74-106 [facility] Comment on above: Performed By: #### D DAVIDSON, MG, PHOS, CMP, LIPID, URIC #### [facility] [address] [place] [address] Dr. Sarmad Patino Potassium [Moles/Vol] 3.9 mmol/L Normal 3.5-5.1 [facility] Comment on above: Performed By: #### D DAVIDSON, MG, PHOS, CMP, LIPID, URIC #### [facility] [address] [place] [address] Dr. Sarmad Patino Protein [Mass/Vol] 7.2 g/dL Normal 6.4-8.2 [facility] Comment on above: Performed By: #### D DAVIDSON, MG, PHOS, CMP, LIPID, URIC #### [facility] [address] [address] [address] Sarmad Patino Sodium [Moles/Vol] 141 mmol/L Normal 136-145 [facility] Comment on above: Performed By: #### D DAVIDSON, MG, PHOS, CMP, LIPID, URIC #### [facility] [address] [place] [address] Dr. Sarmad Patino Urea nitrogen [Mass/Vol] 16.0 mg/dL Normal 7.0-18.0 [facility] Comment on above: Performed By: #### D DAVIDSON, MG, PHOS, CMP, LIPID, URIC #### [facility] [address] [address] Sarmad Patino Urea nitrogen/Creatinine [Mass ratio] 18.8 mg/mg Normal [facility] Comment on above: Performed By: #### D DAVIDSON, MG, PHOS, CMP, LIPID, URIC #### [facility] [address] [address] Sarmad Patino URIC ACID SERUMon 09-10-2021 Urate [Mass/Vol] 4.8 mg/dL Normal 2.6-6.0 [facility] Comment on above: Performed By: #### D DAVIDSON, MG, PHOS, CMP, LIPID, URIC #### [facility] [address] [address] [address] Sarmad Patino Urinalysis - AUTOMATEDon Appearance (U) cloudy [employer] Other Bilirubin Ql (U) Negative [employer] Other Color (U) pale yellow [employer] Other Glucose Ql (U) Negative [employer] Other Hemoglobin Ql (U) moderate [employer] Other Ketones Ql (U) Negative [employer] Other Leukocyte esterase Test strip Ql (U) moderate [employer] Other Nitrite Ql (U) Negative [employer] Other pH (U) 7.0 [pH] [employer] Other Protein Ql (U) Negative [employer] Other Specific gravity (U) [Rel density] 1.010 [employer] Other Urobilinogen (U) [Mass/Vol] 0.2 mg/dL [employer] Other Urinalysis - AUTOMATED [employer] Other Urine Cultureon 08-14-2021 Urine Culture 100,000 [employer] Other Urine Culture <16 Susceptible [employer] Other Urine Culture >16 Resistant [employer] Other Urine Culture <4 Susceptible [employer] Other Urine Culture <2 Susceptible [employer] Other Urine Culture <1 Susceptible [employer] Other Urine Culture <0.5 Susceptible [employer] Other Urine Culture <32 Susceptible [employer] Other Urine Culture <2/38 Susceptible [employer] Other Bacteria identified Cx Nom (U) Reason for Exam Dysuria Urine ORGANISM: Klebsiella pneumoniae (O:KLEEDVINE) Collison Count 100,000 Aerobic SHYLA Charge (NUC86) ---- [...] RESISTANT TO ALL B-LACTAM DRUGS. PERFORMED BY: [facility] [address] [place] [address] PATHOLOGIST PERIANESTHESIA NURSE LOVELY COLE M.D. Normal [facility] Comment on above: Performed By: #### C UU #### [facility] [address] *URINE CULTUREon 12-31-2017 Bacteria identified in Urine by Culture Clinical Report: (D) Specimen: URINE Collected: 12/31/2017 13:40 Status: Final Last Updated: 01/04/2018 12:38 ISO (Final) Diphtheroids >100,000 Cfu/Ml 2 Morphologies ISO (Final) Aerococcus urinae 50,000 - 100,000 Cfu/mL Result changed by RFISCHB on 01/04/2018 12:38. The previous result was: ISO (Prelim) Normal [facility] Comment on above: Performed By: #### 4 1000, 25065, 35745, 85642, 50505, 11857 ####[facility] CBC W/DIFFon 12-25-2017 ABS BASOPHILS 0.0 10*3/uL Normal 0.0-0.2 The [facility] Comment on above: Performed By: #### 5 0103 ####[facility] ABS IMM GRANS 0.0 10*3/uL Normal 0.0-0.2 [facility] Comment on above: Performed By: #### 5 0103 ####[facility] ABS NEUTROPHILS 5.0 10*3/uL Normal 1.6-7.6 The [facility] Comment on above: Performed By: #### 5 0103 ####[facility] [place] [address], [facility] Basophils Auto #/vol (Bld) 0.1 % Normal 0.0-1.0 [facility] Comment on above: Performed By: #### 5 0103 ####[facility] [facility].[address] Eosinophils Auto #/vol (Bld) 0.1 10*3/uL Normal 0.0-0.5 [facility] Comment on above: Performed By: #### 5 0103 ####[facility] Eosinophils/100 WBC Auto (Bld) 1.6 % Normal 0.0-6.0 [facility] Comment on above: Performed By: #### 5 0103 ####[facility] [facility].[address] Erythrocyte distribution width Auto Ratio (RBC) 14.6 % Normal 11.5-15.0 [facility] Comment on above: Performed By: #### 5 0103 ####[facility] Hematocrit Auto Volume Fraction (Bld) 44.9 % Normal 36.0-45.0 The [facility] Comment on above: Performed By: #### 5 0103 ####[facility] [facility].[address] Hemoglobin mass conc (Bld) 14.9 g/dL Normal 12.0-15.0 The [facility] Comment on above: Performed By: #### 3 ####[facility] IMMATURE GRANS 0.4 % Normal 0.0-1.0 The [facility] Alicebernard barber [facility] Comment on above: Performed By: #### 5 0103 ####[facility] [facility].[address] Lymphocytes Auto #/vol (Bld) 1.0 10*3/uL Low 1.2-4.0 [facility] Comment on above: Performed By: #### 5 0103 ####[facility] Lymphocytes/100 WBC Auto (Bld) 14.9 % Low 20.0-45.0 [facility] Comment on above: Performed By: #### 3 ####[facility] MCH Auto Entitic mass (RBC) 28.8 pg Normal 27.0-33.0 [facility] Comment on above: Performed By: #### 102 ####[facility] MCHC Auto mass conc (RBC) 33.2 g/dL Normal 32.0-35.0 [facility] Comment on above: Performed By: #### 3 ####[facility] MCV Auto Entitic volume (RBC) 86.7 fL Normal 82.0-98.0 [facility] Comment on above: Performed By: #### 3 ####[facility] [facility].[address] Monocytes Auto #/vol (Bld) 0.7 10*3/uL Normal 0.1-1.0 The [facility] Comment on above: Performed By: #### 102 ####[facility] MONOS 10.6 % Normal 5.0-12.0 [facility] Comment on above: Performed By: #### 5 0103 ####[facility] [facility].[address] Neutrophils/100 WBC Auto (Bld) 72.4 % High 40.0-72.0 [facility] Comment on above: Performed By: #### 5 0103 ####[facility] [facility].[address] Nucleated RBC/100 WBC Ratio (Bld) 0 % Normal 0-0 The [facility] Comment on above: Performed By: #### 5 0103 ####[address] PLAT CNT 203 10*3/uL Normal 150-400 The [facility] Comment on above: Performed By: #### 5 0103 ####[facility] [facility].[address] RBC Auto #/vol (Bld) 5.18 10*6/uL High 3.80-5.00 Th [facility] Comment on above: Performed By: #### 5 0103 ####[facility] [facility].[address] WBC Auto #/vol (Bld) 6.90 10*3/uL Normal 4.00-10.60 Th e [facility] Comment on above: Performed By: #### 5 0103 ####[facility] [facility].[address] COMP METABOLIC PANELon 12-25 Albumin mass conc 4.3 g/dL Normal 3.5-5.7 [facility] Comment on above: Performed By: #### 4 1000, 87765, 46843, 19537, 54398, 33801 ####[address] ALKALINE PHOSPH 118 IU/L High 34-104 The [facility] Comment on above: Performed By: #### 4 1000, 90019, 23422, 47820, 69533, 07166 ####[facility] [id number], [facility] ALT enzyme act/vol 11 U/L Normal 7-52 The [facility] Comment on above: Performed By: #### 4 1000, 39401, 09448, 45931, 80770, 53758 ####[facility] [place] [address], [facility] AST enzyme act/vol 17 U/L Normal 13-39 The [facility] Comment on above: Performed By: #### 4 1000, 23064, 50773, 23198, 84518, 07511 ####[facility] [id number], [facility] Bilirubin mass conc 0.4 mg/dL Normal 0.3-1.0 The [facility] Comment on above: Performed By: #### 4 1000, 87999, 22041, 14149, 70095, 70061 ####[facility] [place] [address], [facility] Calcium mass conc 9.8 mg/dL Normal 8.6-10.3 The [facility] Comment on above: Performed By: #### 4 1000, 81816, 52665, 78282, 52384, 04305 ####[facility] [place] [address], [place] Chloride molar conc 104 mmol/L Normal 98-107 The [facility] Comment on above: Performed By: #### 4 1000, 93974, 91546, 48711, 99259, 96429 ####[facility] [place] [address], [place] CO2 molar conc 27 mmol/L Normal 21-31 The [facility] Comment on above: Performed By: #### 4 1000, 44123, 25515, 76030, 70051, 22032 ####[facility] [place] [address], [facility] Creatinine mass conc 0.76 mg/dL Normal 0.60-1.20 [facility] Comment on above: Performed By: #### 4 1000, 00597, 25360, 86365, 21323, 53678 ####[facility] [place] [address], [facility] GFR/1.73 sq M predicted among blacks MDRD vol rate/area (S/P/Bld) mL/min/{1.73_m2} Normal >60 The [facility] Comment on above: Performed By: #### 4 1000, 89620, 37866, 85173, 85446, 27184 ####[facility] [place] [address], [facility] GFR/1.73 sq M predicted among non-blacks MDRD vol rate/area (S/P/Bld) mL/min/{1.73_m2} Normal >60 The [facility] Comment on above: Performed By: #### 4 1000, 84416, 15308, 35650, 34947, 94555 ####[facility] [place] [address], [facility] Glucose mass conc 94 mg/dL Normal 70-100 [facility] Comment on above: Performed By: #### 4 1000, 29230, 23467, 22528, 26221, 54314 ####[facility] [place] [address], [facility] Potassium molar conc 3.9 mmol/L Normal 3.5-5.1 [facility] Comment on above: Performed By: #### 4 1000, 53168, 63942, 03691, 07148, 67613 ####[facility] Protein mass conc 7.2 g/dL Normal 6.0-8.3 The [facility] Comment on above: Performed By: #### 4 1000, 63870, 81525, 52644, 07460, 53938 ####[facility] Sodium molar conc 140 mmol/L Normal 136-145 The [facility] Comment on above: Performed By: #### 4 1000, 33933, 34555, 96159, 70797, 80441 ####[facility] Urea nitrogen mass conc 15 mg/dL Normal 7-25 The [facility] Comment on above: Performed By: #### 4 1000, 18606, 30607, 69342, 16762, 25829 ####[facility] DIRECT BILIon 12-25-2017 Bilirubin.direct mass conc 0.1 mg/dL Normal 0.0-0.2 The [facility] Comment on above: Performed By: #### 4 1000, 16832, 23295, 46686, 74555, 39031 ####[facility] EVEROLIMUS 20428tu 8 EVEROLIMUS 4.7 ng/mL Normal The [facility] Comment on above: Result Comment: [...] the transplantcenter.Test developed and characteristics determined by [employer]. See Compliance Statement B: [employer],[address] [place] [id number] [employer]io[employer], Leonid Antonio MD - Lab. Director LIPID PROFILEon 12-25-2017 Cholesterol in HDL mass conc 51 mg/dL Normal 23-92 The [facility] Comment on above: Result Comment: Slig ht variation in normal range could be due to gender and/or age.HDL CHOLESTEROL REFERENCE RANGE:20 years and older Cardiovascular Risk> or =60 mg/dL [id number] TO 59 mg/dL Low Risk<40 mg/dL High Risk Performed By: #### 4 5506, 14041, 61228, 53495, 31394, 09877 ####[facility] Cholesterol in LDL mass conc 58 mg/dL Normal 0-130 The [facility] Comment on above: Result Comment: LDL IS A CALCULATIONLDL IS ONLY VALID IF THE TRIG IS LESS THAN 400. Performed By: #### 4 5506, 93041, 98793, 45517, 05918, 68397 ####[facility] [facility] [place] [address], [facility] Cholesterol mass conc 122 mg/dL Normal 120-200 The [facility] Comment on above: Result Comment: CHOL ESTEROL REFERENCE RANGE:20 YEARS AND OLDER CARDIOVASCULAR RISKLess than 200 mg/dl Low Wosz517 to 239 mg/dl Borderline Nzzf810 mg/dl and greater High Risk Performed By: #### 4 5506, 39557, 10953, 92780, 81241, 51898 ####[facility] [place] [address], [facility] Cholesterol.total/Cho lesterol in HDL mass ratio 2.4 {ratio} Normal .0-4.5 The [facility] Comment on above: Performed By: #### 4 5506, 48154, 72646, 28029, 38874, 47555 ####[facility] NON-HDL CHOLESTEROL 71 mg/dL Normal The [facility] Comment on above: Performed By: #### 4 5506, 45506, 60442, 68213, 17673, 22342 ####[facility] Triglyceride mass conc 65 mg/dL Normal 40-149 The [facility] Comment on above: Result Comment: TRIG LYCERIDE REFERENCE RANGE:20 YEARS AND OLDER CARDIOVASCULAR RISKLESS THAN 150 mg/dl LOW [id number] TO 199 mg/dl BORDERLINE AVBQ324 mg/dl AND GREATER HIGH RISK Performed By: #### 4 5506, 02780, 22226, 40485, 15082, 18705 ####[facility] VLDL CHOL 13 mg/dL Normal 0-40 The [facility] Comment on above: Performed By: #### 4 5506, 87424, 32156, 22978, 79615, 03754 ####[facility] [place] [address], [facility] MAGNESIUM BLOODon 12-25-2017 Magnesium mass conc 1.8 mg/dL Low 1.9-2.7 The [facility] Comment on above: Performed By: #### 4 1000, 58413, 21609, 39773, 78979, 73181 ####[facility] [place] [address], [facility] PHOSPHORUS BLOODon 09-27-201 8 Phosphate mass conc 3.4 mg/dL Normal 2.5-5.0 The [facility] Comment on above: Performed By: #### 4 5506, 28604, 09050, 74208, 98933, 35183 ####[facility] [facility].[address] TACROLIMUSon 12-25-2017 Tacrolimus mass conc (Bld) 6.4 ng/mL Normal 5.0-20.0 The [facility] Comment on above: Result Comment: The [employer] Tacrolimus assay is a delayed one-step immunoassayfor the quantitative determination of tacrolimus in human whole bloodusing the chemiluminescent microparticle immunoassay (CMIA) technologywith flexible assay protocols, referred to as Chemiflex. Performed By: #### 4 1000, 25278, 25489, 77612, 55395, 19665 ####[facility] [facility].[address] URIC ACID BLOODon 12-25-2017 Urate mass conc 4.7 mg/dL Normal 2.3-6.6 The [facility] Comment on above: Performed By: #### 4 5506, 70806, 14556, 35613, 31509, 85382 ####[facility] [facility].[address] CBC W/DIFFon 10-30-2017 ABS BASOPHILS 0.0 10*3/uL Normal 0.0-0.2 The [facility] Comment on above: Performed By: #### 4 6447, 12540 ####[facility] [facility].[address] ABS IMM GRANS 0.0 10*3/uL Normal 0.0-0.2 The [facility] Comment on above: Performed By: #### 4 6447, 75620 ####[facility] ABS NEUTROPHILS 4.9 10*3/uL Normal 1.6-7.6 The [facility] Comment on above: Performed By: #### 4 1447, 31203 ####[facility] Basophils Auto #/vol (Bld) 0.1 % Normal 0.0-1.0 The [facility] Comment on above: Performed By: #### 4 6011, 80660 ####[facility] Eosinophils Auto #/vol (Bld) 0.1 10*3/uL Normal 0.0-0.5 The [facility] Comment on above: Performed By: #### 4 9550, 21254 ####[facility] [facility] Eosinophils/100 WBC Auto (Bld) 1.4 % Normal 0.0-6.0 The [facility] Comment on above: Performed By: #### 4 9435, 71041 ####[place] [address] [facility] Erythrocyte distribution width Auto Ratio (RBC) 14.6 % Normal 11.5-15.0 The [facility] Comment on above: Performed By: #### 4 8673, 02932 ####[place] [id number] [facility].[address] Hematocrit Auto Volume Fraction (Bld) 46.8 % High 36.0-45.0 The [facility] Comment on above: Performed By: #### 4 2888, 48093 ####[facility] [facility].[address] Hemoglobin mass conc (Bld) 15.1 g/dL High 12.0-15.0 The [facility] Comment on above: Performed By: #### 9 1108, 54981 ####[facility] IMMATURE GRANS 0.4 % Normal 0.0-1.0 The [facility] Comment on above: Performed By: #### 4 6426, 68245 ####[place] [address] Lymphocytes Auto #/vol (Bld) 1.2 10*3/uL Normal 1.2-4.0 The [facility] Comment on above: Performed By: #### 4 2522, 24656 ####[facility] Lymphocytes/100 WBC Auto (Bld) 16.6 % Low 20.0-45.0 The [facility] Comment on above: Performed By: #### 4 6117, 07883 ####[address] MCH Auto Entitic mass (RBC) 29.0 pg Normal 27.0-33.0 The [facility] Comment on above: Performed By: #### 3 1103, 99547 ####[address] MCHC Auto mass conc (RBC) 32.3 g/dL Normal 32.0-35.0 The [facility] Comment on above: Performed By: #### 8 1581, 29693 ####[address] MCV Auto Entitic volume (RBC) 89.8 fL Normal 82.0-98.0 The [facility] Comment on above: Performed By: #### 6 3711, 10226 ####[address] Monocytes Auto #/vol (Bld) 0.8 10*3/uL Normal 0.1-1.0 The [facility] Comment on above: Performed By: #### 4 5875, 38582 ####[facility] [place] [address], [facility] MONOS 11.9 % Normal 5.0-12.0 [facility] Comment on above: Performed By: #### 4 6447, 96892 ####[facility] [place] [address], [facility] Neutrophils/100 WBC Auto (Bld) 69.6 % Normal 40.0-72.0 The [facility] Comment on above: Performed By: #### 4 6447, 95990 ####[facility] [place] [address], [facility] Nucleated RBC/100 WBC Ratio (Bld) 0 % Normal 0-0 The [facility] Comment on above: Performed By: #### 4 6447, 88203 ####[facility] [place] [address], [facility] PLAT CNT 200 10*3/uL Normal 150-400 The [facility] Comment on above: Performed By: #### 4 6447, 94993 ####[facility] [place] [address], [facility] RBC Auto #/vol (Bld) 5.21 10*6/uL High 3.80-5.00 Th e [facility] Comment on above: Performed By: #### 4 6447, 25930 ####[facility] [facility].[address] WBC Auto #/vol (Bld) 7.04 10*3/uL Normal 4.00-10.60 Th e [facility] Comment on above: Performed By: #### 4 6447, 81442 ####[facility] [facility].[address] COMP METABOLIC PANELon 10-30 Albumin mass conc 4.1 g/dL Normal 3.5-5.7 [facility] Comment on above: Performed By: #### 7 0547, 35659 ####[facility] [facility] [id number], [facility] ALKALINE PHOSPH 114 IU/L High 34-104 The [facility] Comment on above: Performed By: #### 4 4447, 27397 ####[facility] [facility] [id number], [facility] ALT enzyme act/vol 16 U/L Normal 7-52 The [facility] Comment on above: Performed By: #### 0 0220, 84521 ####[facility] [place] [address], [place] AST enzyme act/vol 18 U/L Normal 13-39 The [facility] Comment on above: Performed By: #### 1 6015, 52062 ####[facility] [place] [address].[place] [id number], [facility] Bilirubin mass conc 0.4 mg/dL Normal 0.3-1.0 The [facility] Comment on above: Performed By: #### 5 2368, 40953 ####[facility] [facility].[place] [id number], [facility] Calcium mass conc 9.7 mg/dL Normal 8.6-10.3 The [facility] Comment on above: Performed By: #### 5 2408, 72092 ####[facility] [facility].[place] [address], [place] Chloride molar conc 105 mmol/L Normal 98-107 The [facility] Comment on above: Performed By: #### 5 0167, 54670 ####[facility] [facility].[place] [address], [place] CO2 molar conc 28 mmol/L Normal 21-31 The [facility] Comment on above: Performed By: #### 1 0451, 01398 ####[facility] [place] [address], [facility] Creatinine mass conc 0.82 mg/dL Normal 0.60-1.20 The [facility] Comment on above: Performed By: #### 4 7759, 49456 ####[facility] [place] [address], [facility] GFR/1.73 sq M predicted among blacks MDRD vol rate/area (S/P/Bld) mL/min/{1.73_m2} Normal >60 The [facility] Comment on above: Performed By: #### 4 8936, 80769 ####[facility] [place] [address], [facility] GFR/1.73 sq M predicted among non-blacks MDRD vol rate/area (S/P/Bld) mL/min/{1.73_m2} Normal >60 The [facility] Comment on above: Performed By: #### 4 6379, 93536 ####[facility] [place] [address], [facility] Glucose mass conc 90 mg/dL Normal 70-100 The [facility] Comment on above: Performed By: #### 4 4353, 85603 ####[facility] [place] [address], [facility] Potassium molar conc 4.1 mmol/L Normal 3.5-5.1 The [facility] Comment on above: Performed By: #### 4 5776, 87022 ####[facility] [place] [address], [facility] Protein mass conc 6.9 g/dL Normal 6.0-8.3 The [facility] Comment on above: Performed By: #### 4 6016, 64421 ####[facility] [place] [address], [place] Sodium molar conc 138 mmol/L Normal 136-145 The [facility] Comment on above: Performed By: #### 4 6447, 55926 ####[facility] Urea nitrogen mass conc 16 mg/dL Normal 7-25 [facility] Comment on above: Performed By: #### 4 6447, 55027 ####[facility] DIRECT BILIon 10-30-2017 Bilirubin.direct mass conc 0.0 mg/dL Normal 0.0-0.2 [facility] Comment on above: Performed By: #### 4 5506, 66646, 76753, 20954, 35207, 71887 ####[facility] EVEROLIMUS [address]5597dg 8 EVEROLIMUS 6.0 ng/mL Normal [facility] Comment on above: Result Comment: Ther [...] the transplantcenter.Test developed and characteristics determined by [employer]. See Compliance Statement B: [employer]/CSPerformed by [employer],[address] [place] [address] koo[employer], Leonid Antonio MD - Lab. Director LIPID PROFILEon 10-30-2017 Cholesterol in HDL mass conc 50 mg/dL Normal 23-92 [facility] Comment on above: Result Comment: Slig ht variation in normal range could be due to gender and/or age.HDL CHOLESTEROL REFERENCE RANGE:20 years and older Cardiovascular Risk> or =60 mg/dL Gizkaqpai46 TO 59 mg/dL Low Risk<40 mg/dL High Risk Performed By: #### 4 5506, 22359, 46596, 00747, 14575, 07498 ####[facility] [place] [address], [facility] Cholesterol in LDL mass conc 85 mg/dL Normal 0-130 [facility] Comment on above: Result Comment: LDL IS A CALCULATIONLDL IS ONLY VALID IF THE TRIG IS LESS THAN 400. Performed By: #### 4 5506, 99415, 81914, 07999, 32560, 40205 ####[facility] [place] [address], [place] Cholesterol mass conc 152 mg/dL Normal 120-200 [facility] Comment on above: Result Comment: CHOL ESTEROL REFERENCE RANGE:20 YEARS AND OLDER CARDIOVASCULAR RISKLess than 200 mg/dl Low Yzsg652 to 239 mg/dl Borderline Qvhj480 mg/dl and greater High Risk Performed By: #### 4 5506, 79557, 30046, 78015, 38598, 19284 ####[facility] [place] [address], [place] Cholesterol.total/Cho lesterol in HDL mass ratio 3.0 {ratio} Normal .0-4.5 The [facility] Comment on above: Performed By: #### 4 5506, 16886, 35514, 99265, 62810, 25622 ####[facility] [place] [address], [place] NON-HDL CHOLESTEROL 102 mg/dL Normal The [facility] Comment on above: Performed By: #### 4 5506, 77992, 68399, 79650, 83877, 74697 ####[facility] Triglyceride mass conc 87 mg/dL Normal 40-149 The [facility] Comment on above: Result Comment: TRIG LYCERIDE REFERENCE RANGE:20 YEARS AND OLDER CARDIOVASCULAR RISKLESS THAN 150 mg/dl LOW [id number] TO 199 mg/dl BORDERLINE SLXS674 mg/dl AND GREATER HIGH RISK Performed By: #### 4 5506, 16393, 12622, 06500, 70816, 62343 ####[facility] VLDL CHOL 17 mg/dL Normal 0-40 The [facility] Comment on above: Performed By: #### 4 5506, 83756, 72085, 32887, 12326, 39692 ####[facility] MAGNESIUM BLOODon 10-30-2017 Magnesium mass conc 1.9 mg/dL Normal 1.9-2.7 The [facility] Comment on above: Performed By: #### 4 5506, 28904, 06752, 31706, 58249, 95980 ####[facility] PHOSPHORUS BLOODon 8 Phosphate mass conc 3.7 mg/dL Normal 2.5-5.0 The [facility] Comment on above: Performed By: #### 4 5506, 49496, 29534, 03577, 44438, 50597 ####[facility] TACROLIMUSon 10-30-2017 Tacrolimus mass conc (Bld) 7.1 ng/mL Normal 5.0-20.0 The [facility] Comment on above: Result Comment: The [employer] Tacrolimus assay is a delayed one-step immunoassayfor the quantitative determination of tacrolimus in human whole bloodusing the chemiluminescent microparticle immunoassay (CMIA) technologywith flexible assay protocols, referred to as Chemiflex. Performed By: #### 9 9914 ####[place] [id number] [address] URIC ACID BLOODon 10-30-2017 Urate mass conc 4.6 mg/dL Normal 2.3-6.6 The [facility] Comment on above: Performed By: #### 4 6447, 87210 ####[place] [address] [address] CBC W/DIFFon 10-23-2017 ABS BASOPHILS 0.0 10*3/uL Normal 0.0-0.2 The [facility] Comment on above: Performed By: #### 4 6447, 58631 ####[address] ABS IMM GRANS 0.1 10*3/uL Normal 0.0-0.2 The [facility] Comment on above: Performed By: #### 4 5747, 03010 ####[place] [address] [address] ABS NEUTROPHILS 5.8 10*3/uL Normal 1.6-7.6 The [facility] Comment on above: Performed By: #### 4 6447, 89615 ####[place] [address] [address] Basophils Auto #/vol (Bld) 0.2 % Normal 0.0-1.0 The [facility] Comment on above: Performed By: #### 4 6447, 79741 ####[address] Eosinophils Auto #/vol (Bld) 0.1 10*3/uL Normal 0.0-0.5 The [facility] Comment on above: Performed By: #### 4 6447, 50269 ####[facility] [place] [address], [facility] Eosinophils/100 WBC Auto (Bld) 0.7 % Normal 0.0-6.0 The [facility] Comment on above: Performed By: #### 4 8961, 36042 ####[facility] Erythrocyte distribution width Auto Ratio (RBC) 14.6 % Normal 11.5-15.0 The [facility] Comment on above: Performed By: #### 4 0147, 36209 ####[facility] [facility].[address] Hematocrit Auto Volume Fraction (Bld) 44.2 % Normal 36.0-45.0 The [facility] Comment on above: Performed By: #### 4 3092, 00629 ####[facility] [facility].[address] Hemoglobin mass conc (Bld) 14.2 g/dL Normal 12.0-15.0 The [facility] Comment on above: Performed By: #### 0 6077, 38493 ####[facility] [facility].[address] IMMATURE GRANS 1.4 % High 0.0-1.0 The [facility] Comment on above: Performed By: #### 5 0201, 00768 ####[facility] Lymphocytes Auto #/vol (Bld) 2.1 10*3/uL Normal 1.2-4.0 The [facility] Comment on above: Performed By: #### 4 4564, 26678 ####[facility] [place] [address], [facility] Lymphocytes/100 WBC Auto (Bld) 22.5 % Normal 20.0-45.0 The [facility] Comment on above: Performed By: #### 4 3747, 97012 ####[facility] [facility].[address] MCH Auto Entitic mass (RBC) 28.5 pg Normal 27.0-33.0 The [facility] Comment on above: Performed By: #### 4 5496, 75862 ####[facility] [facility].[address] MCHC Auto mass conc (RBC) 32.1 g/dL Normal 32.0-35.0 The [facility] Comment on above: Performed By: #### 4 8330, 26469 ####[facility] [facility].[address] MCV Auto Entitic volume (RBC) 88.8 fL Normal 82.0-98.0 The [facility] Comment on above: Performed By: #### 4 9066, 17195 ####[facility] [facility].[address] Monocytes Auto #/vol (Bld) 1.1 10*3/uL High 0.1-1.0 The [facility] Comment on above: Performed By: #### 4 3747, 22603 ####[facility] [facility].[address] MONOS 12.0 % Normal 5.0-12.0 The [facility] Comment on above: Performed By: #### 4 7747, 87721 ####[facility] [facility].[address] Neutrophils/100 WBC Auto (Bld) 63.2 % Normal 40.0-72.0 The [facility] Comment on above: Performed By: #### 9 1447, 98775 ####[facility] Nucleated RBC/100 WBC Ratio (Bld) 0 % Normal 0-0 [facility] Comment on above: Performed By: #### 4 6447, 91811 ####[facility] [facility].[address] PLAT CNT 241 10*3/uL Normal 150-400 The [facility] Comment on above: Performed By: #### 4 6447, 70891 ####[facility] [facility].[address] RBC Auto #/vol (Bld) 4.98 10*6/uL Normal 3.80-5.00 Th e [facility] Comment on above: Performed By: #### 4 6447, 09415 ####[facility] [facility].[address] WBC Auto #/vol (Bld) 9.14 10*3/uL Normal 4.00-10.60 Th e [facility] Comment on above: Performed By: #### 4 6447, 28214 ####[facility] [facility].[address] COMP METABOLIC PANELon 10-23 Albumin mass conc 3.8 g/dL Normal 3.5-5.7 [facility] Comment on above: Performed By: #### 4 6447, 41180 ####[facility] [facility].[address] ALKALINE PHOSPH 96 IU/L Normal 34-104 The [facility] Comment on above: Performed By: #### 4 6447, 92061 ####[facility] [facility].[address] ALT enzyme act/vol 15 U/L Normal 7-52 [facility] Comment on above: Performed By: #### 4 6447, 00915 ####[facility] [place] [address], [facility] AST enzyme act/vol 13 U/L Normal 13-39 The [facility] Comment on above: Performed By: #### 4 5578, 03016 ####[facility] [place] [address], [facility] Bilirubin mass conc 0.4 mg/dL Normal 0.3-1.0 The [facility] Comment on above: Performed By: #### 4 3100, 53481 ####[facility] [place] [address], [facility] Calcium mass conc 9.2 mg/dL Normal 8.6-10.3 [facility] Comment on above: Performed By: #### 1 6736, 35230 ####[facility] [place] [address], [facility] Chloride molar conc 102 mmol/L Normal 98-107 The [facility] Comment on above: Performed By: #### 5 5547, 27125 ####[facility] [place] [address], [facility] CO2 molar conc 29 mmol/L Normal 21-31 The [facility] Comment on above: Performed By: #### 8 6691, 38690 ####[facility] [place] [address], [facility] Creatinine mass conc 0.80 mg/dL Normal 0.60-1.20 The [facility] Comment on above: Performed By: #### 1 0917, 90529 ####[facility] [place] [address], [facility] GFR/1.73 sq M predicted among blacks MDRD vol rate/area (S/P/Bld) mL/min/{1.73_m2} Normal >60 The [facility] Comment on above: Performed By: #### 2 7895, 45035 ####[facility] [place] [address], [facility] GFR/1.73 sq M predicted among non-blacks MDRD vol rate/area (S/P/Bld) mL/min/{1.73_m2} Normal >60 The [facility] Comment on above: Performed By: #### 4 6447, 18103 ####[facility] [place] [address], [facility] Glucose mass conc 85 mg/dL Normal 70-100 The [facility] Comment on above: Performed By: #### 4 6447, 72354 ####[address] [place] [address], [facility] Potassium molar conc 3.3 mmol/L Low 3.5-5.1 The [facility] Comment on above: Performed By: #### 4 6447, 04787 ####[address] Protein mass conc 6.5 g/dL Normal 6.0-8.3 The [facility] Comment on above: Performed By: #### 4 6247, 43554 ####[place] [id number] [facility] [address], [facility] Sodium molar conc 139 mmol/L Normal 136-145 The [facility] Comment on above: Performed By: #### 4 6947, 00564 ####[place] [address] [facility] [address], [facility] Urea nitrogen mass conc 18 mg/dL Normal 7-25 The [facility] Comment on above: Performed By: #### 4 5823, 45969 ####[place] [id number] [facility] [address], [facility] DIRECT BILIon 10-23-2017 Bilirubin.direct mass conc 0.1 mg/dL Normal 0.0-0.2 The [facility] Comment on above: Performed By: #### 4 6447, 64930 ####[facility] EVEROLIMUS 13704ih 8 EVEROLIMUS 4.0 ng/mL Normal [facility] Comment on above: Result Comment: Ther [...] the transplantcenter.Test developed and characteristics determined by [facility]. See Compliance Statement B: [employer]/CSPerformed by [employer],[address] [place] [address] [id number] bjy.[employer], Leonid Antonio MD - Lab. Director LIPID PROFILEon 10-23-2017 Cholesterol in HDL mass conc 53 mg/dL Normal 23-92 The [facility] Comment on above: Result Comment: Slig ht variation in normal range could be due to gender and/or age.HDL CHOLESTEROL REFERENCE RANGE:20 years and older Cardiovascular Risk> or =60 mg/dL Pogcofdyp66 TO 59 mg/dL Low Risk<40 mg/dL High Risk Performed By: #### 4 8336, 62137 ####[facility] Cholesterol in LDL mass conc 68 mg/dL Normal 0-130 The [facility] Comment on above: Result Comment: LDL IS A CALCULATIONLDL IS ONLY VALID IF THE TRIG IS LESS THAN 400. Performed By: #### 4 8589, 73173 ####[facility] [place] [address], [facility] Cholesterol mass conc 135 mg/dL Normal 120-200 The [facility] Comment on above: Result Comment: CHOL ESTEROL REFERENCE RANGE:20 YEARS AND OLDER CARDIOVASCULAR RISKLess than 200 mg/dl Low Rwzy500 to 239 mg/dl Borderline Utgd140 mg/dl and greater High Risk Performed By: #### 4 2172, 42510 ####[facility] [facility].[address] Cholesterol.total/Cho lesterol in HDL mass ratio 2.5 {ratio} Normal .0-4.5 [facility] Comment on above: Performed By: #### 4 5020, 46024 ####[facility] [facility].[address] NON-HDL CHOLESTEROL 82 mg/dL Normal The [facility] Comment on above: Performed By: #### 4 6497, 56082 ####[facility] [place] [address], [facility] Triglyceride mass conc 72 mg/dL Normal 40-149 The [facility] Comment on above: Result Comment: TRIG LYCERIDE REFERENCE RANGE:20 YEARS AND OLDER CARDIOVASCULAR RISKLESS THAN 150 mg/dl LOW [id number] TO 199 mg/dl BORDERLINE SUQQ737 mg/dl AND GREATER HIGH RISK Performed By: #### 4 5643, 11147 ####[facility] [place] [address], [facility] VLDL CHOL 14 mg/dL Normal 0-40 The [facility] Comment on above: Performed By: #### 4 6040, 35155 ####[facility] [place] [address], [facility] MAGNESIUM BLOODon 10-23-2017 Magnesium mass conc 1.8 mg/dL Low 1.9-2.7 The [facility] Comment on above: Performed By: #### 4 6447, 99303 ####[address] PHOSPHORUS BLOODon 8 Phosphate mass conc 3.7 mg/dL Normal 2.5-5.0 The [facility] Comment on above: Performed By: #### 4 8247, 19446 ####[facility] TACROLIMUSon 10-23-2017 Tacrolimus mass conc (Bld) 2.6 ng/mL Low 5.0-20.0 The [facility] Comment on above: Result Comment: The [employer] Tacrolimus assay is a delayed one-step immunoassayfor the quantitative determination of tacrolimus in human whole bloodusing the chemiluminescent microparticle immunoassay (CMIA) technologywith flexible assay protocols, referred to as Chemiflex. Performed By: #### 4 1347, 05694 ####[place] [id number] URIC ACID BLOODon 10-23-2017 Urate mass conc 4.3 mg/dL Normal 2.3-6.6 The [facility] Comment on above: Performed By: #### 4 6359, 70527 ####[place] [id number] CBC W/DIFFon 09-25-2017 ABS BASOPHILS 0.0 10*3/uL Normal 0.0-0.2 The [facility] Comment on above: Performed By: #### 4 1000, 53879, 15212, 25974, 02804, 64979 ####[address] ABS IMM GRANS 0.0 10*3/uL Normal 0.0-0.2 The [facility] Comment on above: Performed By: #### 4 1000, 51218, 23495, 01432, 65527, 75797 ####[facility] [place] [address], [facility] ABS NEUTROPHILS 4.4 10*3/uL Normal 1.6-7.6 The [facility] Comment on above: Performed By: #### 4 1000, 61509, 03058, 32734, 39929, 16807 ####[facility] Basophils Auto #/vol (Bld) 0.2 % Normal 0.0-1.0 The [facility] Comment on above: Performed By: #### 4 1000, 64257, 86824, 23298, 64917, 14192 ####[facility] [facility] [place] [address], [facility] Eosinophils Auto #/vol (Bld) 0.1 10*3/uL Normal 0.0-0.5 The [facility] Comment on above: Performed By: #### 4 1000, 08769, 44460, 15874, 60401, 61669 ####[facility] [facility] Eosinophils/100 WBC Auto (Bld) 2.2 % Normal 0.0-6.0 The [facility] Comment on above: Performed By: #### 4 1000, 58305, 16396, 45360, 66710, 22116 ####[facility] Erythrocyte distribution width Auto Ratio (RBC) 14.0 % Normal 11.5-15.0 The [facility] Comment on above: Performed By: #### 4 1000, 14353, 36921, 10671, 48871, 91757 ####[facility] Hematocrit Auto Volume Fraction (Bld) 44.8 % Normal 36.0-45.0 The [facility] Comment on above: Performed By: #### 4 1000, 96585, 96659, 62160, 18072, 91477 ####[facility] [facility].[address] Hemoglobin mass conc (Bld) 14.5 g/dL Normal 12.0-15.0 The [facility] Comment on above: Performed By: #### 4 1000, 84466, 80242, 29482, 59845, 76826 ####[facility] IMMATURE GRANS 0.3 % Normal 0.0-1.0 The [facility] Comment on above: Performed By: #### 4 1000, 61363, 63086, 72276, 69317, 82083 ####[place] [address] [facility].[address] Lymphocytes Auto #/vol (Bld) 1.1 10*3/uL Low 1.2-4.0 The [facility] Comment on above: Performed By: #### 4 1000, 59930, 72458, 06959, 99305, 98724 ####[facility] [facility].[address] Lymphocytes/100 WBC Auto (Bld) 17.0 % Low 20.0-45.0 The [facility] Comment on above: Performed By: #### 4 1000, 54680, 32565, 97963, 59835, 55817 ####[facility] [facility].[address] MCH Auto Entitic mass (RBC) 28.6 pg Normal 27.0-33.0 The [facility] Comment on above: Performed By: #### 4 1000, 64700, 07270, 30391, 15411, 71117 ####[facility] [facility].[address] MCHC Auto mass conc (RBC) 32.4 g/dL Normal 32.0-35.0 The [facility] Comment on above: Performed By: #### 4 1000, 01055, 97242, 00053, 88366, 72852 ####[facility] MCV Auto Entitic volume (RBC) 88.4 fL Normal 82.0-98.0 The [facility] Comment on above: Performed By: #### 4 1000, 53408, 15984, 37614, 57459, 52460 ####[facility] Monocytes Auto #/vol (Bld) 0.7 10*3/uL Normal 0.1-1.0 The [facility] Comment on above: Performed By: #### 4 1000, 69293, 78956, 52403, 77869, 68296 ####[facility] MONOS 11.5 % Normal 5.0-12.0 The [facility] Comment on above: Performed By: #### 4 1000, 61673, 21517, 28993, 02733, 13661 ####[facility] Neutrophils/100 WBC Auto (Bld) 68.8 % Normal 40.0-72.0 The [facility] Comment on above: Performed By: #### 4 1000, 22102, 54600, 73849, 41238, 35284 ####[facility] Nucleated RBC/100 WBC Ratio (Bld) 0 % Normal 0-0 The [facility] Comment on above: Performed By: #### 4 1000, 87639, 86278, 73452, 29689, 59347 ####[facility] PLAT CNT 212 10*3/uL Normal 150-400 The [facility] Comment on above: Performed By: #### 4 1000, 90767, 41188, 76376, 08557, 59018 ####[facility] RBC Auto #/vol (Bld) 5.07 10*6/uL High 3.80-5.00 Th e [facility] Comment on above: Performed By: #### 4 1000, 50261, 84280, 90490, 15773, 07503 ####[facility] WBC Auto #/vol (Bld) 6.34 10*3/uL Normal 4.00-10.60 Th e [facility] Comment on above: Performed By: #### 4 1000, 61020, 63469, 69870, 44220, 75818 ####[facility] [facility] COMP METABOLIC PANELon 09-25 Albumin mass conc 4.0 g/dL Normal 3.5-5.7 [facility] Comment on above: Performed By: #### 4 6447, 99550 ####[facility] [facility].[address] ALKALINE PHOSPH 112 IU/L High 34-104 The [facility] Comment on above: Performed By: #### 4 6447, 26648 ####[facility] ALT enzyme act/vol 11 U/L Normal 7-52 The [facility] Comment on above: Performed By: #### 4 6447, 32555 ####[facility] AST enzyme act/vol 17 U/L Normal 13-39 The [facility] Comment on above: Performed By: #### 4 6447, 45083 ####[facility] [place] [address], [place] Bilirubin mass conc 0.5 mg/dL Normal 0.3-1.0 The [facility] Comment on above: Performed By: #### 4 6447, 47835 ####[facility] [place] [address], [place] Calcium mass conc 9.6 mg/dL Normal 8.6-10.3 [facility] Comment on above: Performed By: #### 4 6447, 65619 ####[facility] [place] [address], [place] Chloride molar conc 104 mmol/L Normal 98-107 The [facility] Comment on above: Performed By: #### 4 9047, 97019 ####[facility] [place] [address], [place] CO2 molar conc 28 mmol/L Normal 21-31 The [facility] Comment on above: Performed By: #### 4 5847, 24075 ####[facility] [place] [address], [place] Creatinine mass conc 0.83 mg/dL Normal 0.60-1.20 [facility] Comment on above: Performed By: #### 4 6447, 97282 ####[facility] [place] [address], [place] GFR/1.73 sq M predicted among blacks MDRD vol rate/area (S/P/Bld) mL/min/{1.73_m2} Normal >60 The [facility] Comment on above: Performed By: #### 4 6447, 23423 ####[facility] [place] [address], [place] GFR/1.73 sq M predicted among non-blacks MDRD vol rate/area (S/P/Bld) mL/min/{1.73_m2} Normal >60 [facility] Comment on above: Performed By: #### 4 8130, 04954 ####[facility] [place] [address], [facility] Glucose mass conc 91 mg/dL Normal 70-100 The [facility] Comment on above: Performed By: #### 4 1893, 74249 ####[facility] [place] [address], [facility] Potassium molar conc 3.9 mmol/L Normal 3.5-5.1 The [facility] Comment on above: Performed By: #### 4 9260, 16525 ####[facility] [place] [address], [facility] Protein mass conc 7.0 g/dL Normal 6.0-8.3 The [facility] Comment on above: Performed By: #### 4 2376, 63416 ####[facility] [place] [address], [facility] Sodium molar conc 140 mmol/L Normal 136-145 The [facility] Comment on above: Performed By: #### 4 9097, 89060 ####[facility] [place] [address], [facility] Urea nitrogen mass conc 15 mg/dL Normal 7-25 The [facility] Comment on above: Performed By: #### 4 4632, 12167 ####[facility] [place] [address], [facility] DIRECT BILIon 09-25-2017 Bilirubin.direct mass conc 0.1 mg/dL Normal 0.0-0.2 The [facility] Comment on above: Performed By: #### 4 6994, 83925 ####[facility] [place] [address], [facility] EVEROLIMUS [id number] 8 EVEROLIMUS 5.1 ng/mL Normal The [facility] Comment on above: Result Comment: [...] the transplantcenter.Test developed and characteristics determined by [facility]. See Compliance Statement B: [employer]/CSPerformed by [employer],[address] [place] [id number] hfx.[employer], Leonid Antonio MD - Lab. Director LIPID PROFILEon 09-25-2017 Cholesterol in HDL mass conc 48 mg/dL Normal 23-92 The [facility] Comment on above: Result Comment: Slig ht variation in normal range could be due to gender and/or age.HDL CHOLESTEROL REFERENCE RANGE:20 years and older Cardiovascular Risk> or =60 mg/dL Paycuvkdu97 TO 59 mg/dL Low Risk<40 mg/dL High Risk Performed By: #### 4 9984, 71790 ####[facility] [place] [address], [facility] Cholesterol in LDL mass conc 69 mg/dL Normal 0-130 The [facility] Comment on above: Result Comment: LDL IS A CALCULATIONLDL IS ONLY VALID IF THE TRIG IS LESS THAN 400. Performed By: #### 4 4782, 11829 ####[facility] [place] [address], [facility] Cholesterol mass conc 138 mg/dL Normal 120-200 The [facility] Comment on above: Result Comment: CHOL ESTEROL REFERENCE RANGE:20 YEARS AND OLDER CARDIOVASCULAR RISKLess than 200 mg/dl Low Xnxm019 to 239 mg/dl Borderline Osas547 mg/dl and greater High Risk Performed By: #### 4 8301, 25061 ####[facility] [place] [address], [facility] Cholesterol.total/Cho lesterol in HDL mass ratio 2.9 {ratio} Normal .0-4.5 The [facility] Comment on above: Performed By: #### 4 2002, 99119 ####[facility] [facility] NON-HDL CHOLESTEROL 90 mg/dL Normal The [facility] Comment on above: Performed By: #### 4 0396, 12312 ####[facility] [facility].[address] Triglyceride mass conc 103 mg/dL Normal 40-149 The [facility] Comment on above: Result Comment: TRIG LYCERIDE REFERENCE RANGE:20 YEARS AND OLDER CARDIOVASCULAR RISKLESS THAN 150 mg/dl LOW [id number] TO 199 mg/dl BORDERLINE OFWJ149 mg/dl AND GREATER HIGH RISK Performed By: #### 4 4189, 43138 ####[facility] [facility] [address], [facility] VLDL CHOL 21 mg/dL Normal 0-40 The [facility] Comment on above: Performed By: #### 4 1456, 65443 ####[facility] [place] [address], [facility] MAGNESIUM BLOODon 09-25-2017 Magnesium mass conc 1.8 mg/dL Low 1.9-2.7 The [facility] Comment on above: Performed By: #### 4 6447, 95763 ####[facility] [place] [address].[address] PHOSPHORUS BLOODon 8 Phosphate mass conc 3.4 mg/dL Normal 2.5-5.0 The [facility] Comment on above: Performed By: #### 4 6447, 25076 ####[address] TACROLIMUSon 09-25-2017 Tacrolimus mass conc (Bld) 3.6 ng/mL Low 5.0-20.0 The [facility] Comment on above: Result Comment: The [employer]IST Tacrolimus assay is a delayed one-step immunoassayfor the quantitative determination of tacrolimus in human whole bloodusing the chemiluminescent microparticle immunoassay (CMIA) technologywith flexible assay protocols, referred to as Chemiflex. Performed By: #### 4 6447, 46006 ####[address] URIC ACID BLOODon 09-25-2017 Urate mass conc 4.7 mg/dL Normal 2.3-6.6 The [facility] Comment on above: Performed By: #### 4 6447, 43547 ####[address] BK VIRUS QUANTITATION PCR BL OODon 08-26-2017 BKV QUANT PCR Not detected Normal The [facility] Comment on above: Result Comment: Meth od: BK virus was measured by quantitative polymerase chain reactionusing a TaqMan probe targeting the polyomavirus BK MILL OILER-1 gene.The lower limit of quantitation of the assay is 500 copies of BK genomeper milliliter of plasma or urine, and any detectable BK DNA below thatlevel is reported as: Detected, <500 copies/ml. Serial BK virusmeasurement can be used to monitor disease activity. (Reference:Kelsie vaughanl. J CLIN MICRO 2004; 42:4497-5896).This test was developed and its performance characteristics determinedby the [facility]. It has not been approvedby the [place] Food and Drug Administration. However, such approval is notrequired for clinical implementation, and test results have been shownto be clinically useful. This laboratory is CAP accredited and CLIAcertified to perform high complexity testing. Performed By: #### 4 1000, 39123, 16052, 86260, 29242, 02182 ####[facility] LOG 10 COPIES Not detected Normal The [facility] Comment on above: Performed By: #### 4 1000, 41438, 92691, 47232, 95275, 93243 ####[facility] CBC W/DIFFon 08-26-2017 ABS BASOPHILS 0.0 10*3/uL Normal 0.0-0.2 The [facility] Comment on above: Performed By: #### 4 1000, 84586, 50708, 75844, 45941, 48898 ####[facility] ABS IMM GRANS 0.0 10*3/uL Normal 0.0-0.2 The [facility] Comment on above: Performed By: #### 4 1000, 83092, 69790, 65448, 38131, 12791 ####[facility] ABS NEUTROPHILS 4.5 10*3/uL Normal 1.6-7.6 The [facility] Comment on above: Performed By: #### 4 1000, 28036, 02228, 50653, 74410, 15479 ####[facility] Basophils Auto #/vol (Bld) 0.2 % Normal 0.0-1.0 The [facility] Comment on above: Performed By: #### 4 1000, 21745, 72784, 51114, 75311, 03651 ####[facility] Eosinophils Auto #/vol (Bld) 0.2 10*3/uL Normal 0.0-0.5 The [facility] Comment on above: Performed By: #### 4 1000, 54359, 71313, 95633, 29053, 81663 ####[facility] Eosinophils/100 WBC Auto (Bld) 2.4 % Normal 0.0-6.0 The [facility] Comment on above: Performed By: #### 4 1000, 27794, 73920, 25443, 46600, 27955 ####[facility] [facility] Erythrocyte distribution width Auto Ratio (RBC) 14.0 % Normal 11.5-15.0 The [facility] Comment on above: Performed By: #### 4 1000, 13649, 15055, 38855, 63629, 64529 ####[facility] [facility].[address] Hematocrit Auto Volume Fraction (Bld) 44.9 % Normal 36.0-45.0 The [facility] Comment on above: Performed By: #### 4 1000, 86226, 23385, 75320, 66116, 93942 ####[facility] [facility].[address] Hemoglobin mass conc (Bld) 14.9 g/dL Normal 12.0-15.0 The [facility] Comment on above: Performed By: #### 4 1000, 90732, 73135, 09234, 23589, 52328 ####[facility] IMMATURE GRANS 0.5 % Normal 0.0-1.0 The [facility] Comment on above: Performed By: #### 4 1000, 19786, 41885, 25811, 87431, 10870 ####[facility] [facility].[address] Lymphocytes Auto #/vol (Bld) 1.0 10*3/uL Low 1.2-4.0 The [facility] Comment on above: Performed By: #### 4 1000, 24144, 38567, 27848, 26885, 71029 ####[facility] [facility].[address] Lymphocytes/100 WBC Auto (Bld) 15.8 % Low 20.0-45.0 The [facility] Comment on above: Performed By: #### 4 1000, 26458, 60029, 66444, 73639, 36636 ####[facility] [facility].[address] MCH Auto Entitic mass (RBC) 29.1 pg Normal 27.0-33.0 The [facility] Comment on above: Performed By: #### 4 1000, 10043, 90837, 25827, 36463, 19027 ####[facility] [facility].[address] MCHC Auto mass conc (RBC) 33.2 g/dL Normal 32.0-35.0 The [facility] Comment on above: Performed By: #### 4 1000, 95817, 51926, 88328, 15982, 15029 ####[facility] [facility].[address] MCV Auto Entitic volume (RBC) 87.7 fL Normal 82.0-98.0 The [facility] Comment on above: Performed By: #### 4 1000, 80559, 38685, 84032, 38622, 45720 ####[facility] Monocytes Auto #/vol (Bld) 0.7 10*3/uL Normal 0.1-1.0 The [facility] Comment on above: Performed By: #### 4 1000, 94358, 97985, 75405, 65785, 22701 ####[facility] [place] [address], [facility] MONOS 10.6 % Normal 5.0-12.0 [facility] Comment on above: Performed By: #### 4 1000, 75138, 61874, 81766, 72996, 75122 ####[facility] [place] [address], [facility] Neutrophils/100 WBC Auto (Bld) 70.5 % Normal 40.0-72.0 [facility] Comment on above: Performed By: #### 4 1000, 85888, 72172, 59445, 18486, 59546 ####[facility] Nucleated RBC/100 WBC Ratio (Bld) 0 % Normal 0-0 [facility] Comment on above: Performed By: #### 4 1000, 94301, 15861, 86307, 64616, 07229 ####[facility] PLAT CNT 231 10*3/uL Normal 150-400 The [facility] Comment on above: Performed By: #### 4 1000, 81772, 09592, 46536, 83581, 06485 ####[facility] [place] [address], [facility] RBC Auto #/vol (Bld) 5.12 10*6/uL High 3.80-5.00 Th e [facility] Comment on above: Performed By: #### 4 1000, 56902, 95647, 80631, 32245, 49629 ####[facility] [place] [address], [facility] WBC Auto #/vol (Bld) 6.32 10*3/uL Normal 4.00-10.60 Th e [facility] Comment on above: Performed By: #### 4 1000, 02912, 00891, 64599, 47544, 04155 ####[facility] COMP METABOLIC PANELon 08-26 Albumin mass conc 4.3 g/dL Normal 3.5-5.7 The [facility] Comment on above: Performed By: #### 4 1000, 12932, 73629, 36625, 13232, 84852 ####[facility] ALKALINE PHOSPH 125 IU/L High 34-104 The [facility] Comment on above: Performed By: #### 4 1000, 23031, 58429, 73055, 76142, 19140 ####[facility] ALT enzyme act/vol 17 U/L Normal 7-52 The [facility] Comment on above: Performed By: #### 4 1000, 40675, 05453, 36213, 78627, 97455 ####[facility] [place] [address], [facility] AST enzyme act/vol 23 U/L Normal 13-39 The [facility] Comment on above: Performed By: #### 4 1000, 32246, 24816, 66146, 05076, 79528 ####[facility] [place] [address], [facility] Bilirubin mass conc 0.4 mg/dL Normal 0.3-1.0 [facility] Comment on above: Performed By: #### 4 1000, 34515, 68040, 97782, 53625, 13607 ####[facility] [facility] [place] [address], [facility] Calcium mass conc 9.6 mg/dL Normal 8.6-10.3 [facility] Comment on above: Performed By: #### 4 1000, 13126, 65267, 48279, 86739, 73071 ####[facility] [place] [address], [facility] Chloride molar conc 104 mmol/L Normal 98-107 The [facility] Comment on above: Performed By: #### 4 1000, 78754, 53906, 77388, 51325, 73409 ####[facility] [place] [address], [place] CO2 molar conc 27 mmol/L Normal 21-31 The [facility] Comment on above: Performed By: #### 4 1000, 37455, 64904, 69111, 72170, 54450 ####[facility] [place] [address], [place] Creatinine mass conc 0.77 mg/dL Normal 0.60-1.20 [facility] Comment on above: Performed By: #### 4 1000, 63328, 05288, 14578, 56639, 25804 ####[facility] [place] [address], [facility] GFR/1.73 sq M predicted among blacks MDRD vol rate/area (S/P/Bld) mL/min/{1.73_m2} Normal >60 The [facility] Comment on above: Performed By: #### 4 1000, 71235, 19770, 93103, 15719, 12679 ####[facility] [place] [address], [place] GFR/1.73 sq M predicted among non-blacks MDRD vol rate/area (S/P/Bld) mL/min/{1.73_m2} Normal >60 The [facility] Comment on above: Performed By: #### 4 1000, 79352, 85200, 42570, 43721, 15057 ####[facility] [place] [address], [facility] Glucose mass conc 95 mg/dL Normal 70-100 The [facility] Comment on above: Performed By: #### 4 1000, 97450, 30823, 40576, 69729, 33069 ####[facility] [place] [address], [facility] Potassium molar conc 4.1 mmol/L Normal 3.5-5.1 The [facility] Comment on above: Performed By: #### 4 1000, 82395, 63248, 42843, 86153, 78252 ####[facility] [place] [address], [facility] Protein mass conc 7.3 g/dL Normal 6.0-8.3 The [facility] Comment on above: Performed By: #### 4 1000, 99612, 10768, 52008, 03842, 64500 ####[facility] [place] [address], [facility] Sodium molar conc 139 mmol/L Normal 136-145 The [facility] Comment on above: Performed By: #### 4 1000, 39245, 11786, 11794, 75360, 06230 ####[facility] [place] [address], [facility] Urea nitrogen mass conc 12 mg/dL Normal 7-25 The [facility] Comment on above: Performed By: #### 4 1000, 65950, 31152, 38714, 49010, 76023 ####[facility] [id number], [facility] DIRECT BILIon 08-26-2017 Bilirubin.direct mass conc 0.1 mg/dL Normal 0.0-0.2 The [facility] Comment on above: Performed By: #### 4 1000, 33443, 88398, 00125, 52783, 76363 ####[facility] EVEROLIMUS [id number] [id number] EVEROLIMUS 5.6 ng/mL Normal [facility] Comment on above: Result Comment: Ther [...] the transplantcenter.Test developed and characteristics determined by [facility]. See Compliance Statement B: [employer]SP[employer]formed by [employer],[address] [place] [id number] efn.[employer], Leonid Antonio MD - Lab. Director HEMOGLOBIN A1Con 08-26-2017 Glucose mass conc 114 mg/dL Normal 70-126 [facility] Comment on above: Performed By: #### 4 1000, 23642, 49018, 77223, 50057, 14391 ####[facility] Hemoglobin A1c/Hemoglobin.total mass fraction (Bld) 5.6 % Normal 4.0-6.0 The [facility] Comment on above: Performed By: #### 4 1000, 19638, 31255, 27177, 39046, 37701 ####[facility] [place] [address], [facility] LIPID PROFILEon 08-26-2017 Cholesterol in HDL mass conc 49 mg/dL Normal 23-92 The [facility] Comment on above: Result Comment: Slig ht variation in normal range could be due to gender and/or age.HDL CHOLESTEROL REFERENCE RANGE:20 years and older Cardiovascular Risk> or =60 mg/dL Dlgvfiqbm07 TO 59 mg/dL Low Risk<40 mg/dL High Risk Performed By: #### 4 1000, 42645, 29466, 18203, 68175, 10473 ####[facility] [place] [address], [facility] Cholesterol in LDL mass conc 76 mg/dL Normal 0-130 The [facility] Comment on above: Result Comment: LDL IS A CALCULATIONLDL IS ONLY VALID IF THE TRIG IS LESS THAN 400. Performed By: #### 4 1000, 16909, 67392, 85936, 20678, 21754 ####[facility] [place] [address], [facility] Cholesterol mass conc 152 mg/dL Normal 120-200 The [facility] Comment on above: Result Comment: CHOL ESTEROL REFERENCE RANGE:20 YEARS AND OLDER CARDIOVASCULAR RISKLess than 200 mg/dl Low Ofth506 to 239 mg/dl Borderline Gdxw316 mg/dl and greater High Risk Performed By: #### 4 1000, 51344, 87681, 08560, 70582, 61127 ####[facility] [place] [address], [facility] Cholesterol.total/Cho lesterol in HDL mass ratio 3.1 {ratio} Normal .0-4.5 The [facility] Comment on above: Performed By: #### 4 1000, 75595, 62757, 99347, 76052, 45366 ####[facility] [place] [address], [place] NON-HDL CHOLESTEROL 103 mg/dL Normal The [facility] Comment on above: Performed By: #### 4 1000, 74203, 45535, 10778, 19767, 69932 ####[facility] Triglyceride mass conc 133 mg/dL Normal 40-149 The [facility] Comment on above: Result Comment: TRIG LYCERIDE REFERENCE RANGE:20 YEARS AND OLDER CARDIOVASCULAR RISKLESS THAN 150 mg/dl LOW LHCN937 TO 199 mg/dl BORDERLINE EQBV315 mg/dl AND GREATER HIGH RISK Performed By: #### 4 1000, 88087, 58794, 72203, 51641, 61163 ####[facility] VLDL CHOL 27 mg/dL Normal 0-40 The [facility] Comment on above: Performed By: #### 4 1000, 14073, 28483, 64611, 58529, 11931 ####[facility] MAGNESIUM BLOODon 08-26-2017 Magnesium mass conc 1.9 mg/dL Normal 1.9-2.7 The [facility] Comment on above: Performed By: #### 4 1000, 16954, 39931, 10488, 24506, 25341 ####[facility] PHOSPHORUS BLOODon 8 Phosphate mass conc 3.4 mg/dL Normal 2.5-5.0 The [facility] Comment on above: Performed By: #### 4 1000, 06287, 60287, 71605, 26715, 21927 ####[facility] TACROLIMUSon 08-26-2017 Tacrolimus mass conc (Bld) 4.3 ng/mL Low 5.0-20.0 The [facility] Comment on above: Result Comment: The [employer] Tacrolimus assay is a delayed one-step immunoassayfor the quantitative determination of tacrolimus in human whole bloodusing the chemiluminescent microparticle immunoassay (CMIA) technologywith flexible assay protocols, referred to as Chemiflex. Performed By: #### 4 1000, 12953, 03092, 07113, 25304, 26967 ####[facility] URIC ACID BLOODon 08-26-2017 Urate mass conc 4.6 mg/dL Normal 2.3-6.6 The [facility] Comment on above: Performed By: #### 4 1000, 39668, 44013, 83822, 73048, 95515 ####[facility] CBC W/DIFFon 07-23-2017 ABS BASOPHILS 0.0 10*3/uL Normal 0.0-0.2 The [facility] Comment on above: Performed By: #### 4 1000, 01895, 03328, 58539, 31319, 22410 ####[facility] ABS IMM GRANS 0.0 10*3/uL Normal 0.0-0.2 The [facility] Comment on above: Performed By: #### 4 1000, 87780, 20974, 03721, 94788, 05977 ####[facility] ABS NEUTROPHILS 4.4 10*3/uL Normal 1.6-7.6 The [facility] Comment on above: Performed By: #### 4 1000, 24160, 67625, 87738, 64722, 42448 ####[facility] [facility].[address] Basophils Auto #/vol (Bld) 0.2 % Normal 0.0-1.0 The [facility] Comment on above: Performed By: #### 4 1000, 86183, 62376, 53819, 67753, 37659 ####[facility] Eosinophils Auto #/vol (Bld) 0.1 10*3/uL Normal 0.0-0.5 The [facility] Comment on above: Performed By: #### 4 1000, 07437, 51769, 24354, 80827, 13624 ####[facility] [facility].[address] Eosinophils/100 WBC Auto (Bld) 2.1 % Normal 0.0-6.0 The [facility] Comment on above: Performed By: #### 4 1000, 43930, 37950, 87783, 04373, 43072 ####[facility] Erythrocyte distribution width Auto Ratio (RBC) 13.7 % Normal 11.5-15.0 The [facility] Comment on above: Performed By: #### 4 1000, 67239, 91054, 89900, 96247, 12265 ####[facility] Hematocrit Auto Volume Fraction (Bld) 44.4 % Normal 36.0-45.0 The [facility] Comment on above: Performed By: #### 4 1000, 09990, 21988, 29614, 22685, 75187 ####[facility] [facility].[address] Hemoglobin mass conc (Bld) 14.7 g/dL Normal 12.0-15.0 The [facility] Comment on above: Performed By: #### 4 1000, 06309, 59186, 81635, 30730, 56811 ####[facility] IMMATURE GRANS 0.5 % Normal 0.0-1.0 The [facility] Comment on above: Performed By: #### 4 1000, 78165, 13114, 37675, 13435, 16593 ####[facility] [facility].[address] Lymphocytes Auto #/vol (Bld) 1.0 10*3/uL Low 1.2-4.0 The [facility] Comment on above: Performed By: #### 4 1000, 29522, 96001, 66866, 49864, 75327 ####[facility] [facility].[address] Lymphocytes/100 WBC Auto (Bld) 15.5 % Low 20.0-45.0 The [facility] Comment on above: Performed By: #### 4 1000, 88072, 07758, 97064, 47795, 67589 ####[facility] [facility].[address] MCH Auto Entitic mass (RBC) 28.9 pg Normal 27.0-33.0 The [facility] Comment on above: Performed By: #### 4 1000, 25725, 93571, 90705, 70570, 73784 ####[facility] [facility].[address] MCHC Auto mass conc (RBC) 33.1 g/dL Normal 32.0-35.0 The [facility] Comment on above: Performed By: #### 4 1000, 27748, 38942, 93147, 93623, 57062 ####[facility] [facility].[address] MCV Auto Entitic volume (RBC) 87.4 fL Normal 82.0-98.0 The [facility] Comment on above: Performed By: #### 4 1000, 95537, 18397, 44504, 79806, 96610 ####[facility] Monocytes Auto #/vol (Bld) 0.8 10*3/uL Normal 0.1-1.0 The [facility] Comment on above: Performed By: #### 4 1000, 66848, 33267, 71736, 83307, 56346 ####[facility] MONOS 12.3 % High 5.0-12.0 The [facility] Comment on above: Performed By: #### 4 1000, 00514, 24799, 13491, 69800, 17163 ####[facility] Neutrophils/100 WBC Auto (Bld) 69.4 % Normal 40.0-72.0 The [facility] Comment on above: Performed By: #### 4 1000, 54688, 84847, 12146, 28507, 11691 ####[facility] [facility] Nucleated RBC/100 WBC Ratio (Bld) 0 % Normal 0-0 The [facility] Comment on above: Performed By: #### 4 1000, 96749, 53546, 91276, 22354, 98440 ####[facility] [facility].[address] PLAT CNT 218 10*3/uL Normal 150-400 The [facility] Comment on above: Performed By: #### 4 1000, 60010, 21658, 00658, 47559, 05101 ####[facility] [facility].[address] RBC Auto #/vol (Bld) 5.08 10*6/uL High 3.80-5.00 Th e [facility] Comment on above: Performed By: #### 4 1000, 82079, 71936, 04683, 40339, 10145 ####[facility] WBC Auto #/vol (Bld) 6.3 10*3/uL Normal 4.0-10.6 The [facility] Comment on above: Performed By: #### 4 1000, 06061, 76048, 73703, 82184, 63633 ####[facility] [place] [address], [facility] COMP METABOLIC PANELon 07-23 Albumin mass conc 4.2 g/dL Normal 3.5-5.7 The [facility] Comment on above: Performed By: #### 4 1000, 52547, 14398, 02542, 41738, 04899 ####[facility] [place] [address], [facility] ALKALINE PHOSPH 113 IU/L High 34-104 The [facility] Comment on above: Performed By: #### 4 1000, 39388, 72665, 93690, 27934, 90804 ####[facility] [place] [address], [facility] ALT enzyme act/vol 23 U/L Normal 7-52 The [facility] Comment on above: Performed By: #### 4 1000, 63730, 42285, 86713, 36323, 30156 ####[facility] [place] [address], [facility] AST enzyme act/vol 25 U/L Normal 13-39 The [facility] Comment on above: Performed By: #### 4 1000, 91192, 12041, 88871, 50823, 94325 ####[facility] [place] [address], [facility] Bilirubin mass conc 0.6 mg/dL Normal 0.3-1.0 The [facility] Comment on above: Performed By: #### 4 1000, 73279, 62602, 84960, 10234, 47600 ####[facility] [place] [address], [place] Calcium mass conc 9.6 mg/dL Normal 8.6-10.3 The [facility] Comment on above: Performed By: #### 4 1000, 01494, 37981, 80938, 70225, 98705 ####[facility] [place] [address], [facility] Chloride molar conc 104 mmol/L Normal 98-107 [facility] Comment on above: Performed By: #### 4 1000, 42251, 57637, 73786, 96912, 83328 ####[facility] [place] [address], [place] CO2 molar conc 25 mmol/L Normal 21-31 [facility] Comment on above: Performed By: #### 4 1000, 79467, 28124, 12072, 99138, 16324 ####[facility] [place] [address], [facility] Creatinine mass conc 0.80 mg/dL Normal 0.60-1.20 [facility] Comment on above: Performed By: #### 4 1000, 57837, 50659, 09196, 50228, 56356 ####[facility] [place] [address], [facility] GFR/1.73 sq M predicted among blacks MDRD vol rate/area (S/P/Bld) mL/min/{1.73_m2} Normal >60 The [facility] Comment on above: Performed By: #### 4 1000, 19594, 09449, 01310, 07927, 07297 ####[facility] [place] [address], [place] GFR/1.73 sq M predicted among non-blacks MDRD vol rate/area (S/P/Bld) mL/min/{1.73_m2} Normal >60 The [facility] Comment on above: Performed By: #### 4 1000, 31160, 98190, 86962, 55619, 75268 ####[facility] [place] [address], [facility] Glucose mass conc 91 mg/dL Normal 70-100 The [facility] Comment on above: Performed By: #### 4 1000, 97152, 13018, 27588, 17318, 10448 ####[facility] [place] [address], [facility] Potassium molar conc 4.0 mmol/L Normal 3.5-5.1 The [facility] Comment on above: Performed By: #### 4 1000, 82606, 78339, 64660, 77088, 44163 ####[facility] [place] [address], [facility] Protein mass conc 6.8 g/dL Normal 6.0-8.3 The [facility] Comment on above: Performed By: #### 4 1000, 00394, 01492, 83226, 06490, 89402 ####[facility] [place] [address], [facility] Sodium molar conc 140 mmol/L Normal 136-145 The [facility] Comment on above: Performed By: #### 4 1000, 03304, 36277, 06052, 87363, 72216 ####[facility] [place] [address], [facility] Urea nitrogen mass conc 16 mg/dL Normal 7-25 The [facility] Comment on above: Performed By: #### 4 1000, 58237, 29226, 39764, 90879, 97055 ####[facility] [place] [address], [facility] DIRECT BILIon 07-23-2017 Bilirubin.direct mass conc 0.2 mg/dL Normal 0.0-0.2 The [facility] Comment on above: Performed By: #### 4 1000, 97815, 64052, 42395, 77949, 16532 ####[facility] [place] [address], [facility] EVEROLIMUS [id number] 8 EVEROLIMUS 5.3 ng/mL Normal The [facility] Comment on above: Result Comment: [...] the transplantcenter.Test developed and characteristics determined by [facility]. See Compliance Statement B: [employer]/CSPerformed by [employer],[address] [place] [address]75 jfk.[employer], Leonid Antonio MD - Lab. Director LIPID PROFILEon 07-23-2017 Cholesterol in HDL mass conc 45 mg/dL Normal 23-92 The [facility] Comment on above: Result Comment: Slig ht variation in normal range could be due to gender and/or age.HDL CHOLESTEROL REFERENCE RANGE:20 years and older Cardiovascular Risk> or =60 mg/dL Lytxwaeqp34 TO 59 mg/dL Low Risk<40 mg/dL High Risk Performed By: #### 4 1000, 05989, 31442, 22468, 62182, 62600 ####[facility] [place] [address], [facility] Cholesterol in LDL mass conc 79 mg/dL Normal 0-130 The [facility] Comment on above: Result Comment: LDL IS A CALCULATIONLDL IS ONLY VALID IF THE TRIG IS LESS THAN 400. Performed By: #### 4 1000, 37554, 51233, 58226, 95792, 90330 ####[facility] [place] [address], [facility] Cholesterol mass conc 141 mg/dL Normal 120-200 The [facility] Comment on above: Result Comment: CHOL ESTEROL REFERENCE RANGE:20 YEARS AND OLDER CARDIOVASCULAR RISKLess than 200 mg/dl Low Xjjp178 to 239 mg/dl Borderline Uxrj996 mg/dl and greater High Risk Performed By: #### 4 1000, 32323, 75572, 33241, 19173, 60435 ####[facility] [place] [address], [facility] Cholesterol.total/Cho lesterol in HDL mass ratio 3.1 {ratio} Normal .0-4.5 The [facility] Comment on above: Performed By: #### 4 1000, 99696, 79038, 11129, 46832, 40774 ####[facility] [place] [address], [facility] NON-HDL CHOLESTEROL 96 mg/dL Normal The [facility] Comment on above: Performed By: #### 4 1000, 11243, 64270, 13699, 38412, 99219 ####[facility] [place] [address], [facility] Triglyceride mass conc 83 mg/dL Normal 40-149 The [facility] Comment on above: Result Comment: TRIG LYCERIDE REFERENCE RANGE:20 YEARS AND OLDER CARDIOVASCULAR RISKLESS THAN 150 mg/dl LOW PDNU524 TO 199 mg/dl BORDERLINE CZIU539 mg/dl AND GREATER HIGH RISK Performed By: #### 4 1000, 11049, 25705, 39783, 60828, 17148 ####[facility] [place] [address], [place] VLDL CHOL 17 mg/dL Normal 0-40 The [facility] Comment on above: Performed By: #### 4 1000, 02451, 74422, 79733, 60620, 74178 ####[facility] [facility] [place] [address], [facility] MAGNESIUM BLOODon 07-23-2017 Magnesium mass conc 2.0 mg/dL Normal 1.9-2.7 The [facility] Comment on above: Performed By: #### 4 1000, 31453, 65176, 50474, 71815, 16850 ####[facility] [facility].[address] PHOSPHORUS BLOODon 8 Phosphate mass conc 4.0 mg/dL Normal 2.5-5.0 The [facility] Comment on above: Performed By: #### 4 1000, 39024, 07679, 27508, 34074, 94698 ####[facility] [facility].[address] TACROLIMUSon 07-23-2017 Tacrolimus mass conc (Bld) 4.6 ng/mL Low 5.0-20.0 The [facility] Comment on above: Result Comment: The [employer] Tacrolimus assay is a delayed one-step immunoassayfor the quantitative determination of tacrolimus in human whole bloodusing the chemiluminescent microparticle immunoassay (CMIA) technologywith flexible assay protocols, referred to as Chemiflex. Performed By: #### 4 1000, 80209, 46165, 70688, 99121, 50447 ####[facility] [place] [address], [facility] URIC ACID BLOODon 07-23-2017 Urate mass conc 4.7 mg/dL Normal 2.3-6.6 The [facility] Comment on above: Performed By: #### 4 1000, 33594, 25723, 28566, 90792, 28972 ####[facility] [facility].[address] CBC W/DIFFon 06-20-2017 ABS BASOPHILS 0.0 10*3/uL Normal 0.0-0.2 The [facility] Comment on above: Performed By: #### 4 1000, 97160, 69736, 40159, 48013, 63064 ####[facility] [facility].[address] ABS IMM GRANS 0.0 10*3/uL Normal 0.0-0.2 The [facility] Comment on above: Performed By: #### 4 1000, 41578, 35906, 04386, 27333, 26557 ####[facility] [facility].[address] ABS NEUTROPHILS 4.2 10*3/uL Normal 1.6-7.6 The [facility] Comment on above: Performed By: #### 4 1000, 50996, 48431, 20266, 38008, 13195 ####[facility] [facility].[address] Basophils Auto #/vol (Bld) 0.2 % Normal 0.0-1.0 The [facility] Comment on above: Performed By: #### 4 1000, 63733, 87904, 26575, 21567, 21372 ####[facility] [facility].[address] Eosinophils Auto #/vol (Bld) 0.1 10*3/uL Normal 0.0-0.5 The [facility] Comment on above: Performed By: #### 4 1000, 48861, 74698, 52476, 24303, 57439 ####[facility] [facility].[address] Eosinophils/100 WBC Auto (Bld) 1.5 % Normal 0.0-6.0 The [facility] Comment on above: Performed By: #### 4 1000, 50757, 60668, 92198, 31587, 71685 ####[facility] [facility].[address] Erythrocyte distribution width Auto Ratio (RBC) 13.4 % Normal 11.5-15.0 The [facility] Comment on above: Performed By: #### 4 1000, 01538, 44686, 50749, 22476, 10349 ####[facility] Hematocrit Auto Volume Fraction (Bld) 44.9 % Normal 36.0-45.0 The [facility] Comment on above: Performed By: #### 4 1000, 79278, 67219, 95755, 82733, 75811 ####[facility] Hemoglobin mass conc (Bld) 14.9 g/dL Normal 12.0-15.0 The [facility] Comment on above: Performed By: #### 4 1000, 61974, 21441, 53942, 43576, 27818 ####[facility] [facility].[address] IMMATURE GRANS 0.2 % Normal 0.0-1.0 [facility] [facility] Comment on above: Performed By: #### 4 1000, 84226, 04384, 08575, 16974, 20146 ####[facility] [facility].[address] Lymphocytes Auto #/vol (Bld) 1.1 10*3/uL Low 1.2-4.0 The [facility] Comment on above: Performed By: #### 4 1000, 80061, 38593, 12936, 84270, 27537 ####[facility] [facility].[address] Lymphocytes/100 WBC Auto (Bld) 17.4 % Low 20.0-45.0 The [facility] Comment on above: Performed By: #### 4 1000, 59389, 68052, 33617, 33158, 02987 ####[facility] MCH Auto Entitic mass (RBC) 29.2 pg Normal 27.0-33.0 [facility] Comment on above: Performed By: #### 4 1000, 10402, 83751, 41734, 76238, 46554 ####[facility] MCHC Auto mass conc (RBC) 33.2 g/dL Normal 32.0-35.0 The [facility] Comment on above: Performed By: #### 4 1000, 91975, 29335, 23694, 58232, 23329 ####[facility] MCV Auto Entitic volume (RBC) 87.9 fL Normal 82.0-98.0 The [facility] Comment on above: Performed By: #### 4 1000, 58470, 31675, 86455, 12617, 22126 ####[facility] Monocytes Auto #/vol (Bld) 0.7 10*3/uL Normal 0.1-1.0 The [facility] Comment on above: Performed By: #### 4 1000, 63312, 71198, 76802, 13696, 39249 ####[facility] MONOS 11.3 % Normal 5.0-12.0 The [facility] Comment on above: Performed By: #### 4 1000, 46581, 03999, 88503, 05108, 66899 ####[facility] Neutrophils/100 WBC Auto (Bld) 69.4 % Normal 40.0-72.0 [facility] Comment on above: Performed By: #### 4 1000, 47764, 78374, 00358, 44264, 11757 ####[facility] Nucleated RBC/100 WBC Ratio (Bld) 0 % Normal 0-0 The [facility] Comment on above: Performed By: #### 4 1000, 52518, 36723, 91555, 11881, 13196 ####[facility] PLAT CNT 198 10*3/uL Normal 150-400 The [facility] Comment on above: Performed By: #### 4 1000, 03409, 15139, 89469, 93239, 52839 ####[facility] [facility].[address] RBC Auto #/vol (Bld) 5.11 10*6/uL High 3.80-5.00 Th [facility] Comment on above: Performed By: #### 4 1000, 28817, 27985, 22583, 85616, 05874 ####[facility] WBC Auto #/vol (Bld) 6.0 10*3/uL Normal 4.0-10.6 [facility] Comment on above: Performed By: #### 4 1000, 57434, 76741, 64243, 75844, 14082 ####[facility] COMP METABOLIC PANELon 06-20 Albumin mass conc 4.4 g/dL Normal 3.5-5.7 The [facility] Comment on above: Performed By: #### 4 1000, 51321, 61280, 89102, 68562, 15163 ####[facility] ALKALINE PHOSPH 133 IU/L High 34-104 The [facility] Comment on above: Performed By: #### 4 1000, 01809, 71143, 96077, 12966, 62050 ####[facility] [place] [address], [facility] ALT enzyme act/vol 16 U/L Normal 7-52 The [facility] Comment on above: Performed By: #### 4 1000, 90585, 34981, 75394, 55445, 27464 ####[facility] [place] [address], [place] AST enzyme act/vol 21 U/L Normal 13-39 The [facility] Comment on above: Performed By: #### 4 1000, 03972, 62811, 99147, 16078, 89605 ####[facility] [place] [address], [facility] Bilirubin mass conc 0.8 mg/dL Normal 0.3-1.0 The [facility] Comment on above: Performed By: #### 4 1000, 60206, 43654, 15717, 61319, 82832 ####[facility] [place] [address], [facility] Calcium mass conc 10.0 mg/dL Normal 8.6-10.3 The [facility] Comment on above: Performed By: #### 4 1000, 98939, 34983, 40827, 69023, 21647 ####[facility] [place] [address], [place] Chloride molar conc 106 mmol/L Normal 98-107 The [facility] Comment on above: Performed By: #### 4 1000, 90872, 80735, 65436, 57978, 29227 ####[facility] [place] [address], [place] CO2 molar conc 27 mmol/L Normal 21-31 The [facility] Comment on above: Performed By: #### 4 1000, 51071, 07750, 45119, 79098, 07239 ####[facility] [place] [address], [facility] Creatinine mass conc 0.74 mg/dL Normal 0.60-1.20 The [facility] Comment on above: Performed By: #### 4 1000, 41963, 95333, 62484, 72011, 99266 ####[facility] [place] [address], [place] GFR/1.73 sq M predicted among blacks MDRD vol rate/area (S/P/Bld) mL/min/{1.73_m2} Normal >60 The [facility] Comment on above: Performed By: #### 4 1000, 95835, 36780, 04985, 14233, 59642 ####[facility] [place] [address], [facility] GFR/1.73 sq M predicted among non-blacks MDRD vol rate/area (S/P/Bld) mL/min/{1.73_m2} Normal >60 The [facility] Comment on above: Performed By: #### 4 1000, 55681, 90597, 68919, 19166, 96603 ####[facility] [place] [address], [facility] Glucose mass conc 95 mg/dL Normal 70-100 The [facility] Comment on above: Performed By: #### 4 1000, 22495, 42825, 74678, 65109, 23983 ####[facility] [place] [address], [place] Potassium molar conc 3.8 mmol/L Normal 3.5-5.1 The [facility] Comment on above: Performed By: #### 4 1000, 28801, 73663, 09536, 61216, 35704 ####[facility] [place] [address], [place] Protein mass conc 7.3 g/dL Normal 6.0-8.3 The [facility] Comment on above: Performed By: #### 4 1000, 07116, 85838, 37114, 78114, 64494 ####[facility] Sodium molar conc 137 mmol/L Normal 136-145 The [facility] Comment on above: Performed By: #### 4 1000, 70349, 79888, 25843, 57565, 73500 ####[facility] Urea nitrogen mass conc 16 mg/dL Normal 7-25 The [facility] Comment on above: Performed By: #### 4 1000, 27993, 84233, 54374, 64429, 22219 ####[facility] DIRECT BILIon 06-20-2017 Bilirubin.direct mass conc 0.1 mg/dL Normal 0.0-0.2 The [facility] Comment on above: Performed By: #### 4 1000, 32988, 81258, 33804, 75570, 61955 ####[facility] EVEROLIMUS [id number] 8 EVEROLIMUS 6.7 ng/mL Normal The [facility] Comment on above: Result Comment: [...] the transplantcenter.Test developed and characteristics determined by [employer]. See Compliance Statement B: [employer]/CSPerformed [employer],[address] [place] [address] omv.[employer], Leonid Antonio MD - Lab. Director LIPID PROFILEon 06-20-2017 Cholesterol in HDL mass conc 45 mg/dL Normal 23-92 The [facility] Comment on above: Result Comment: Slig ht variation in normal range could be due to gender and/or age.HDL CHOLESTEROL REFERENCE RANGE:20 years and older Cardiovascular Risk> or =60 mg/dL [id number] TO 59 mg/dL Low Risk<40 mg/dL High Risk Performed By: #### 4 1000, 89252, 13692, 27102, 48571, 22333 ####[facility] [place] [address], [facility] Cholesterol in LDL mass conc 58 mg/dL Normal 0-130 The [facility] Comment on above: Result Comment: LDL IS A CALCULATIONLDL IS ONLY VALID IF THE TRIG IS LESS THAN 400. Performed By: #### 4 1000, 52721, 03926, 56990, 85267, 86253 ####[facility] [place] [address], [place] Cholesterol mass conc 126 mg/dL Normal 120-200 The [facility] Comment on above: Result Comment: CHOL ESTEROL REFERENCE RANGE:20 YEARS AND OLDER CARDIOVASCULAR RISKLess than 200 mg/dl Low [id number] to 239 mg/dl Borderline Jmpt668 mg/dl and greater High Risk Performed By: #### 4 1000, 29398, 50012, 53314, 96593, 40278 ####[facility] [place] [address], [place] Cholesterol.total/Cho lesterol in HDL mass ratio 2.8 {ratio} Normal .0-4.5 The [facility] Comment on above: Performed By: #### 4 1000, 90526, 82957, 65368, 81031, 95744 ####[facility] NON-HDL CHOLESTEROL 81 mg/dL Normal The [facility] Comment on above: Performed By: #### 4 1000, 88947, 19984, 36554, 34009, 02032 ####[facility] Triglyceride mass conc 113 mg/dL Normal 40-149 The [facility] Comment on above: Result Comment: TRIG LYCERIDE REFERENCE RANGE:20 YEARS AND OLDER CARDIOVASCULAR RISKLESS THAN 150 mg/dl LOW CURB356 TO 199 mg/dl BORDERLINE [id number] mg/dl AND GREATER HIGH RISK Performed By: #### 4 1000, 78497, 27664, 32742, 62511, 71401 ####[facility] VLDL CHOL 23 mg/dL Normal 0-40 The [facility] Comment on above: Performed By: #### 4 1000, 73697, 48289, 97835, 30147, 90822 ####[facility] MAGNESIUM BLOODon 06-20-2017 Magnesium mass conc 1.9 mg/dL Normal 1.9-2.7 The [facility] Comment on above: Performed By: #### 4 1000, 87220, 09543, 71052, 02594, 73771 ####[facility] [place] [address], [facility] PHOSPHORUS BLOODon 8 Phosphate mass conc 3.1 mg/dL Normal 2.5-5.0 The [facility] Comment on above: Performed By: #### 4 1000, 31454, 78615, 95122, 32451, 75474 ####[facility] [facility].[address] TACROLIMUSon 06-20-2017 Tacrolimus mass conc (Bld) 4.2 ng/mL Low 5.0-20.0 The [facility] Comment on above: Result Comment: The [employer] Tacrolimus assay is a delayed one-step immunoassayfor the quantitative determination of tacrolimus in human whole bloodusing the chemiluminescent microparticle immunoassay (CMIA) technologywith flexible assay protocols, referred to as Chemiflex. Performed By: #### 4 1000, 38558, 63487, 01914, 27091, 26743 ####[facility] URIC ACID BLOODon 06-20-2017 Urate mass conc 4.3 mg/dL Normal 2.3-6.6 The [facility] Comment on above: Performed By: #### 4 1000, 63151, 40675, 83709, 05523, 17934 ####[facility] BK VIRUS QUANTITATION PCR BL OODon 05-27-2017 BKV QUANT PCR Not detected Normal The [facility] Comment on above: Result Comment: Meth od: BK virus was measured by quantitative polymerase chain reactionusing a TaqMan probe targeting the polyomavirus BK MILL OILER-1 gene.The lower limit of quantitation of the assay is 500 copies of BK genomeper milliliter of plasma or urine, and any detectable BK DNA below thatlevel is reported as: Detected, <500 copies/ml. Serial BK virusmeasurement can be used to monitor disease activity. (Reference:Kelsie vaughanl. J CLIN MICRO 2004; 42:8805-8909).This test was developed and its performance characteristics determinedby the [facility]. It has not been approvedby the US Food and Drug Administration. However, such approval is notrequired for clinical implementation, and test results have been shownto be clinically useful. This laboratory is CAP accredited and CLIAcertified to perform high complexity testing. Performed By: #### 4 1000, 88400, 96586, 17730, 72142, 24853 ####[facility] [facility].[address] LOG 10 COPIES Not detected Normal The [facility] Comment on above: Performed By: #### 4 1000, 16118, 64291, 89223, 44327, 12387 ####[facility] [facility].[address] CBC W/DIFFon 05-27-2017 ABS BASOPHILS 0.0 10*3/uL Normal 0.0-0.2 The [facility] Comment on above: Performed By: #### 4 1000, 82026, 25764, 01512, 64681, 31149 ####[facility] [facility].[address] ABS IMM GRANS 0.0 10*3/uL Normal 0.0-0.2 The [facility] Comment on above: Performed By: #### 4 1000, 44492, 26930, 06305, 70825, 13715 ####[facility] [facility].[address] ABS NEUTROPHILS 4.8 10*3/uL Normal 1.6-7.6 The [facility] Comment on above: Performed By: #### 4 1000, 08946, 42302, 51628, 32855, 52601 ####[facility] [facility].[address] Basophils Auto #/vol (Bld) 0.0 % Normal 0.0-1.0 The [facility] Comment on above: Performed By: #### 4 1000, 57366, 78789, 70679, 00457, 62688 ####[facility] [facility].[address] Eosinophils Auto #/vol (Bld) 0.1 10*3/uL Normal 0.0-0.5 The [facility] Comment on above: Performed By: #### 4 1000, 42403, 93693, 26384, 11190, 24120 ####[facility] [facility].[address] Eosinophils/100 WBC Auto (Bld) 1.1 % Normal 0.0-6.0 The [facility] Comment on above: Performed By: #### 4 1000, 13540, 48899, 52318, 34963, 45886 ####[facility] [facility].[address] Erythrocyte distribution width Auto Ratio (RBC) 13.5 % Normal 11.5-15.0 The [facility] Comment on above: Performed By: #### 4 1000, 07990, 15088, 68971, 67269, 54042 ####[facility] [facility].[address] Hematocrit Auto Volume Fraction (Bld) 46.1 % High 36.0-45.0 The [facility] Comment on above: Performed By: #### 4 1000, 69351, 42782, 56581, 13736, 97140 ####[facility] [facility].[address] Hemoglobin mass conc (Bld) 15.0 g/dL Normal 12.0-15.0 The [facility] Comment on above: Performed By: #### 4 1000, 85318, 65930, 14637, 04301, 27168 ####[facility] [facility].[address] IMMATURE GRANS 0.3 % Normal 0.0-1.0 The [facility] Comment on above: Performed By: #### 4 1000, 75034, 50233, 23648, 04221, 62057 ####[facility] [facility].[address] Lymphocytes Auto #/vol (Bld) 1.0 10*3/uL Low 1.2-4.0 The [facility] Comment on above: Performed By: #### 4 1000, 41899, 02776, 32149, 17980, 35120 ####[facility] Lymphocytes/100 WBC Auto (Bld) 15.7 % Low 20.0-45.0 The [facility] Comment on above: Performed By: #### 4 1000, 15491, 75311, 22889, 92768, 76239 ####[facility] MCH Auto Entitic mass (RBC) 28.8 pg Normal 27.0-33.0 The [facility] Comment on above: Performed By: #### 4 1000, 47797, 82369, 12319, 48262, 00460 ####[facility] [facility] MCHC Auto mass conc (RBC) 32.5 g/dL Normal 32.0-35.0 The [facility] Comment on above: Performed By: #### 4 1000, 62612, 03350, 12892, 09206, 61232 ####[facility] MCV Auto Entitic volume (RBC) 88.7 fL Normal 82.0-98.0 The [facility] Comment on above: Performed By: #### 4 1000, 92773, 29719, 95371, 57916, 93079 ####[facility].[address] Monocytes Auto #/vol (Bld) 0.8 10*3/uL Normal 0.1-1.0 The [facility] Comment on above: Performed By: #### 4 1000, 68494, 95766, 79716, 03489, 35307 ####[facility] MONOS 11.4 % Normal 5.0-12.0 The [facility] Comment on above: Performed By: #### 4 1000, 13696, 83199, 84937, 61446, 51442 ####[facility] [place] [address], [facility] Neutrophils/100 WBC Auto (Bld) 71.5 % Normal 40.0-72.0 The [facility] Comment on above: Performed By: #### 4 1000, 11060, 77272, 60952, 60621, 78091 ####[facility] Nucleated RBC/100 WBC Ratio (Bld) 0 % Normal 0-0 The [facility] Comment on above: Performed By: #### 4 1000, 74460, 79670, 88448, 46732, 50279 ####[facility] [place] [address], [facility] PLAT CNT 199 10*3/uL Normal 150-400 The [facility] Comment on above: Performed By: #### 4 1000, 82111, 84840, 21801, 88865, 81059 ####[facility] [place] [address], [facility] RBC Auto #/vol (Bld) 5.20 10*6/uL High 3.80-5.00 Th e [facility] Comment on above: Performed By: #### 4 1000, 79832, 31113, 54999, 16728, 36097 ####[facility] [place] [address], [facility] WBC Auto #/vol (Bld) 6.6 10*3/uL Normal 4.0-10.6 [facility] Comment on above: Performed By: #### 4 1000, 74454, 56659, 87042, 33787, 26059 ####[facility] COMP METABOLIC PANELon 05-27 Albumin mass conc 4.6 g/dL Normal 3.5-5.7 The [facility] Comment on above: Performed By: #### 4 1000, 88786, 81239, 31500, 15756, 99092 ####[facility] [place] [address], [facility] ALKALINE PHOSPH 105 IU/L High 34-104 The [facility] Comment on above: Performed By: #### 4 1000, 06017, 03228, 76830, 03158, 53577 ####[facility] [place] [address], [facility] ALT enzyme act/vol 20 U/L Normal 7-52 The [facility] Comment on above: Performed By: #### 4 1000, 93712, 83573, 38801, 40770, 71949 ####[facility] [place] [address], [facility] AST enzyme act/vol 23 U/L Normal 13-39 The [facility] Comment on above: Performed By: #### 4 1000, 22220, 48573, 71332, 54661, 74917 ####[facility] [place] [address], [facility] Bilirubin mass conc 0.6 mg/dL Normal 0.3-1.0 The [facility] Comment on above: Performed By: #### 4 1000, 77306, 76820, 51725, 18755, 40888 ####[facility] [place] [address], [facility] Calcium mass conc 9.8 mg/dL Normal 8.6-10.3 The [facility] Comment on above: Performed By: #### 4 1000, 43567, 42983, 13213, 48637, 93938 ####[facility] [place] [address], [facility] Chloride molar conc 106 mmol/L Normal 98-107 [facility] Comment on above: Performed By: #### 4 1000, 50951, 93614, 87981, 54681, 93644 ####[facility] [place] [address], [facility] CO2 molar conc 30 mmol/L Normal 21-31 The [facility] Comment on above: Performed By: #### 4 1000, 63048, 33765, 91577, 44593, 40561 ####[facility] [place] [address], [facility] Creatinine mass conc 0.80 mg/dL Normal 0.60-1.20 [facility] Comment on above: Performed By: #### 4 1000, 19024, 99010, 99194, 19574, 45906 ####[facility] [place] [address], [facility] GFR/1.73 sq M predicted among blacks MDRD vol rate/area (S/P/Bld) mL/min/{1.73_m2} Normal >60 The [facility] Comment on above: Performed By: #### 4 1000, 37115, 58636, 92788, 84447, 63038 ####[facility] [place] [address], [facility] GFR/1.73 sq M predicted among non-blacks MDRD vol rate/area (S/P/Bld) mL/min/{1.73_m2} Normal >60 The [facility] Comment on above: Performed By: #### 4 1000, 23864, 15231, 14504, 35955, 81614 ####[facility] [place] [address], [place] Glucose mass conc 90 mg/dL Normal 70-100 [facility] Comment on above: Performed By: #### 4 1000, 61673, 62210, 02170, 38937, 92003 ####[facility] [place] [address], [facility] Potassium molar conc 4.0 mmol/L Normal 3.5-5.1 The [facility] Comment on above: Performed By: #### 4 1000, 92609, 01571, 98921, 72216, 50692 ####[facility] Protein mass conc 6.8 g/dL Normal 6.0-8.3 The [facility] Comment on above: Performed By: #### 4 1000, 31284, 11890, 03208, 28258, 00809 ####[facility] Sodium molar conc 138 mmol/L Normal 136-145 The [facility] Comment on above: Performed By: #### 4 1000, 50123, 48834, 23400, 57763, 50144 ####[facility] Urea nitrogen mass conc 14 mg/dL Normal 7-25 The [facility] Comment on above: Performed By: #### 4 1000, 68123, 34367, 51754, 00979, 00743 ####[facility] DIRECT BILIon 05-27-2017 Bilirubin.direct mass conc 0.1 mg/dL Normal 0.0-0.2 The [facility] Comment on above: Performed By: #### 4 1000, 14480, 24474, 35294, 97894, 80572 ####[facility] EVEROLIMUS [id number] 8 EVEROLIMUS 5.6 ng/mL Normal The [facility] Comment on above: Result Comment: [...] the transplantcenter.Test developed and characteristics determined by [employer]. See Compliance Statement B: [employer]/CSPerformed [employer],[address] [place] [id number] awv.[employer], Leonid Antonio MD - Lab. Director HEMOGLOBIN A1Con 05-27-2017 Glucose mass conc 108 mg/dL Normal 70-126 [facility] Comment on above: Performed By: #### 4 1000, 20096, 51571, 20372, 32180, 57579 ####[facility] [place] [address], [facility] Hemoglobin A1c/Hemoglobin.total mass fraction (Bld) 5.4 % Normal 4.0-6.0 The [facility] Comment on above: Performed By: #### 4 1000, 10649, 18700, 95191, 20155, 22458 ####[facility] [place] [address], [facility] LIPID PROFILEon 05-27-2017 Cholesterol in HDL mass conc 39 mg/dL Normal 23-92 The [facility] Comment on above: Result Comment: Slig ht variation in normal range could be due to gender and/or age.HDL CHOLESTEROL REFERENCE RANGE:20 years and older Cardiovascular Risk> or =60 mg/dL [id number] TO 59 mg/dL Low Risk<40 mg/dL High Risk Performed By: #### 4 1000, 89427, 05397, 75361, 14298, 48969 ####[facility] [place] [address], [facility] Cholesterol in LDL mass conc 52 mg/dL Normal 0-130 The [facility] Comment on above: Result Comment: LDL IS A CALCULATIONLDL IS ONLY VALID IF THE TRIG IS LESS THAN 400. Performed By: #### 4 1000, 31696, 50044, 48010, 28278, 04645 ####[facility] [address] [place] [address], [facility] Cholesterol mass conc 117 mg/dL Low 120-200 The [facility] Comment on above: Result Comment: CHOL ESTEROL REFERENCE RANGE:20 YEARS AND OLDER CARDIOVASCULAR RISKLess than 200 mg/dl Low Jtgw406 to 239 mg/dl Borderline Slyz046 mg/dl and greater High Risk Performed By: #### 4 1000, 94029, 28173, 84571, 92248, 05406 ####[facility] [place] [address], [facility] Cholesterol.total/Cho lesterol in HDL mass ratio 3.0 {ratio} Normal .0-4.5 The [facility] Comment on above: Performed By: #### 4 1000, 95934, 27998, 00573, 01528, 18793 ####[facility] [facility] [place] [address], [facility] NON-HDL CHOLESTEROL 78 mg/dL Normal The [facility] Comment on above: Performed By: #### 4 1000, 75660, 51952, 72393, 39900, 24270 ####[facility] [place] [address], [place] Triglyceride mass conc 131 mg/dL Normal 40-149 The [facility] Comment on above: Result Comment: TRIG LYCERIDE REFERENCE RANGE:20 YEARS AND OLDER CARDIOVASCULAR RISKLESS THAN 150 mg/dl LOW [id number] TO 199 mg/dl BORDERLINE [id number] mg/dl AND GREATER HIGH RISK Performed By: #### 4 1000, 32048, 14168, 48614, 68089, 17739 ####[facility] VLDL CHOL 26 mg/dL Normal 0-40 The [facility] Comment on above: Performed By: #### 4 1000, 67639, 20127, 55224, 37540, 59388 ####[facility] MAGNESIUM BLOODon 05-27-2017 Magnesium mass conc 2.1 mg/dL Normal 1.9-2.7 The [facility] Comment on above: Performed By: #### 4 1000, 24592, 25782, 79454, 11033, 01365 ####[facility] PHOSPHORUS BLOODon 8 Phosphate mass conc 3.5 mg/dL Normal 2.5-5.0 The [facility] Comment on above: Performed By: #### 4 1000, 11024, 16979, 06440, 45556, 89582 ####[facility] TACROLIMUSon 05-27-2017 Tacrolimus mass conc (Bld) 4.4 ng/mL Low 5.0-20.0 The [facility] Comment on above: Result Comment: The [employer] Tacrolimus assay is a delayed one-step immunoassayfor the quantitative determination of tacrolimus in human whole bloodusing the chemiluminescent microparticle immunoassay (CMIA) technologywith flexible assay protocols, referred to as Chemiflex. Performed By: #### 4 1000, 48595, 07570, 22244, 37539, 06793 ####[facility] URIC ACID BLOODon 05-27-2017 Urate mass conc 4.6 mg/dL Normal 2.3-6.6 The [facility] Comment on above: Performed By: #### 4 1000, 54192, 99992, 08303, 74629, 72024 ####[facility] [facility] CBC W/DIFFon 04-29-2017 ABS BASOPHILS 0.0 10*3/uL Normal 0.0-0.2 The [facility] Comment on above: Performed By: #### 4 1000, 26007, 81935, 10004, 29484, 70721 ####[facility] [facility] ABS IMM GRANS 0.0 10*3/uL Normal 0.0-0.2 The [facility] Comment on above: Performed By: #### 4 1000, 29366, 30370, 96948, 74198, 95471 ####[facility] ABS NEUTROPHILS 4.6 10*3/uL Normal 1.6-7.6 The [facility] Comment on above: Performed By: #### 4 1000, 67041, 00524, 58741, 72740, 02638 ####[facility] [facility] Basophils Auto #/vol (Bld) 0.3 % Normal 0.0-1.0 The [facility] Comment on above: Performed By: #### 4 1000, 22603, 57938, 55316, 07744, 11752 ####[facility] [facility] Eosinophils Auto #/vol (Bld) 0.1 10*3/uL Normal 0.0-0.5 The [facility] Comment on above: Performed By: #### 4 1000, 72400, 71026, 88257, 26173, 75700 ####[facility] [facility] Eosinophils/100 WBC Auto (Bld) 1.7 % Normal 0.0-6.0 The [facility] Comment on above: Performed By: #### 4 1000, 19398, 21845, 00965, 50350, 58272 ####[facility] [facility] Erythrocyte distribution width Auto Ratio (RBC) 13.7 % Normal 11.5-15.0 The [facility] Comment on above: Performed By: #### 4 1000, 49284, 59034, 82200, 40321, 44811 ####[facility] [facility] Hematocrit Auto Volume Fraction (Bld) 45.0 % Normal 36.0-45.0 The [facility] Comment on above: Performed By: #### 4 1000, 17515, 89291, 48710, 79563, 99904 ####[facility] [facility] Hemoglobin mass conc (Bld) 14.9 g/dL Normal 12.0-15.0 The [facility] Comment on above: Performed By: #### 4 1000, 40015, 90381, 38019, 58400, 03745 ####[facility] [facility] IMMATURE GRANS 0.3 % Normal 0.0-1.0 The [facility] Comment on above: Performed By: #### 4 1000, 39376, 55179, 66638, 81755, 29328 ####[facility] [facility] Lymphocytes Auto #/vol (Bld) 0.9 10*3/uL Low 1.2-4.0 The [facility] Comment on above: Performed By: #### 4 1000, 78866, 46001, 93131, 07148, 00333 ####[facility] [facility] Lymphocytes/100 WBC Auto (Bld) 14.2 % Low 20.0-45.0 The [facility] Comment on above: Performed By: #### 4 1000, 50897, 53567, 46946, 92860, 43928 ####[facility] [facility] MCH Auto Entitic mass (RBC) 29.4 pg Normal 27.0-33.0 The [facility] Comment on above: Performed By: #### 4 1000, 57002, 99435, 99121, 68233, 08785 ####[facility] [facility] MCHC Auto mass conc (RBC) 33.1 g/dL Normal 32.0-35.0 The [facility] Comment on above: Performed By: #### 4 1000, 03407, 64981, 38193, 05523, 68878 ####[facility] [facility] MCV Auto Entitic volume (RBC) 88.8 fL Normal 82.0-98.0 The [facility] Comment on above: Performed By: #### 4 1000, 92563, 88216, 35372, 87359, 38534 ####[facility] [facility] Monocytes Auto #/vol (Bld) 0.8 10*3/uL Normal 0.1-1.0 The [facility] Comment on above: Performed By: #### 4 1000, 43030, 03958, 57860, 71162, 17923 ####[facility] [facility] MONOS 12.2 % High 5.0-12.0 The [facility] Comment on above: Performed By: #### 4 1000, 83728, 25082, 50242, 84282, 09338 ####[facility] Neutrophils/100 WBC Auto (Bld) 71.3 % Normal 40.0-72.0 The [facility] Comment on above: Performed By: #### 4 1000, 32716, 65635, 74418, 08578, 99507 ####[facility] Nucleated RBC/100 WBC Ratio (Bld) 0 % Normal 0-0 The [facility] Comment on above: Performed By: #### 4 1000, 65082, 21128, 28433, 78242, 68905 ####[facility] PLAT CNT 215 10*3/uL Normal 150-400 The [facility] Comment on above: Performed By: #### 4 1000, 43927, 82295, 87664, 65728, 11370 ####[facility] RBC Auto #/vol (Bld) 5.07 10*6/uL High 3.80-5.00 Th e [facility] Comment on above: Performed By: #### 4 1000, 95255, 89333, 83148, 22929, 06492 ####[facility] WBC Auto #/vol (Bld) 6.5 10*3/uL Normal 4.0-10.6 The [facility] Comment on above: Performed By: #### 4 1000, 35499, 15893, 15466, 98135, 13758 ####[facility] COMP METABOLIC PANELon 04-29 Albumin mass conc 4.4 g/dL Normal 3.5-5.7 The [facility] Comment on above: Performed By: #### 4 1000, 30926, 68130, 94378, 19040, 73524 ####[facility] [place] [address], [facility] ALKALINE PHOSPH 114 IU/L High 34-104 The [facility] Comment on above: Performed By: #### 4 1000, 83943, 34292, 34287, 06248, 77661 ####[facility] [place] [address], [facility] ALT enzyme act/vol 15 U/L Normal 7-52 The [facility] Comment on above: Performed By: #### 4 1000, 20805, 43628, 30349, 38855, 49289 ####[facility] [place] [address], [facility] AST enzyme act/vol 19 U/L Normal 13-39 The [facility] Comment on above: Performed By: #### 4 1000, 95420, 23068, 00895, 47597, 75584 ####[facility] [place] [address], [facility] Bilirubin mass conc 0.7 mg/dL Normal 0.3-1.0 The [facility] Comment on above: Performed By: #### 4 1000, 19771, 37718, 80369, 34568, 85724 ####[facility] [place] [address], [place] Calcium mass conc 9.6 mg/dL Normal 8.6-10.3 The [facility] Comment on above: Performed By: #### 4 1000, 75801, 24652, 29686, 05044, 96226 ####[facility] [place] [address], [place] Chloride molar conc 103 mmol/L Normal 98-[address] [facility] Comment on above: Performed By: #### 4 1000, 04972, 50192, 86953, 44674, 84685 ####[facility] [place] [address], [facility] CO2 molar conc 29 mmol/L Normal 21-31 The [facility] Comment on above: Performed By: #### 4 1000, 04264, 79868, 38110, 24934, 42807 ####[facility] [place] [address], [facility] Creatinine mass conc 0.79 mg/dL Normal 0.60-1.20 [facility] Comment on above: Performed By: #### 4 1000, 81967, 47715, 90278, 55916, 47618 ####[facility] [place] [address], [facility] GFR/1.73 sq M predicted among blacks MDRD vol rate/area (S/P/Bld) mL/min/{1.73_m2} Normal >60 The [facility] Comment on above: Performed By: #### 4 1000, 85016, 25263, 99627, 26824, 10084 ####[facility] [place] [address], [facility] GFR/1.73 sq M predicted among non-blacks MDRD vol rate/area (S/P/Bld) mL/min/{1.73_m2} Normal >60 The [facility] Comment on above: Performed By: #### 4 1000, 29699, 93873, 25745, 16965, 88196 ####[facility] [place] [address], [facility] Glucose mass conc 90 mg/dL Normal 70-100 [facility] Comment on above: Performed By: #### 4 1000, 49924, 01599, 90793, 74938, 43584 ####[facility] [place] [address], [facility] Potassium molar conc 3.8 mmol/L Normal 3.5-5.1 The [facility] Comment on above: Performed By: #### 4 1000, 02277, 00929, 21433, 30159, 19808 ####[facility] [place] [address], [facility] Protein mass conc 7.2 g/dL Normal 6.0-8.3 The [facility] Comment on above: Performed By: #### 4 1000, 55989, 54597, 54835, 71266, 09505 ####[facility] [place] [address], [facility] Sodium molar conc 140 mmol/L Normal 136-145 The [facility] Comment on above: Performed By: #### 4 1000, 88364, 35848, 07535, 53986, 92139 ####[facility] [place] [address], [facility] Urea nitrogen mass conc 15 mg/dL Normal 7-25 The [facility] Comment on above: Performed By: #### 4 1000, 31287, 97332, 62181, 00846, 67414 ####[facility] [place] [address], [facility] DIRECT BILIon 04-29-2017 Bilirubin.direct mass conc 0.1 mg/dL Normal 0.0-0.2 The [facility] Comment on above: Order Comment: Liver Battery conflicts with Comprehensive Metabolic Panel. Liver Battery canceled and Direct Bilirubin added. Performed By: #### 4 1000, 28302, 23698, 64096, 81212, 03321 ####[facility] [place] [address], [facility] EVEROLIMUS 65963rd 8 EVEROLIMUS 5.4 ng/mL Normal The [facility] Comment on above: Result Comment: [...] the transplantcenter.Test developed and characteristics determined by [employer]. See Compliance Statement B: [employer]formed by [employer],[address] [place] [address] ves.[employer], Leonid Antonio MD - Lab. Director LIPID PROFILEon 04-29-2017 Cholesterol in HDL mass conc 49 mg/dL Normal 23-92 [facility] Comment on above: Result Comment: Slig ht variation in normal range could be due to gender and/or age.HDL CHOLESTEROL REFERENCE RANGE:20 years and older Cardiovascular Risk> or =60 mg/dL Homimzitx89 TO 59 mg/dL Low Risk<40 mg/dL High Risk Performed By: #### 4 1000, 92796, 10504, 83207, 66290, 03101 ####[facility] Cholesterol in LDL mass conc 52 mg/dL Normal 0-130 The [facility] Comment on above: Result Comment: LDL IS A CALCULATIONLDL IS ONLY VALID IF THE TRIG IS LESS THAN 400. Performed By: #### 4 1000, 61526, 44196, 00518, 97918, 81831 ####[facility] [place] [address], [facility] Cholesterol mass conc 122 mg/dL Normal 120-200 The [facility] Comment on above: Result Comment: CHOL ESTEROL REFERENCE RANGE:20 YEARS AND OLDER CARDIOVASCULAR RISKLess than 200 mg/dl Low Smqi043 to 239 mg/dl Borderline Quiy793 mg/dl and greater High Risk Performed By: #### 4 1000, 03977, 66294, 04161, 79989, 58536 ####[facility] [place] [address], [facility] Cholesterol.total/Cho lesterol in HDL mass ratio 2.5 {ratio} Normal .0-4.5 [facility] Comment on above: Performed By: #### 4 1000, 72694, 03215, 92096, 05620, 27886 ####[facility] NON-HDL CHOLESTEROL 73 mg/dL Normal [facility] Comment on above: Performed By: #### 4 1000, 10859, 89387, 72088, 46423, 19247 ####[facility] [facility] Triglyceride mass conc 106 mg/dL Normal 40-149 The [facility] Comment on above: Result Comment: TRIG LYCERIDE REFERENCE RANGE:20 YEARS AND OLDER CARDIOVASCULAR RISKLESS THAN 150 mg/dl LOW [id number] TO 199 mg/dl BORDERLINE FMKX678 mg/dl AND GREATER HIGH RISK Performed By: #### 4 1000, 45704, 75256, 99170, 87075, 05400 ####[facility] [place] [address], [facility] VLDL CHOL 21 mg/dL Normal 0-40 The [facility] Comment on above: Performed By: #### 4 1000, 17060, 22571, 94775, 15938, 98841 ####[facility] [place] [address], [facility] MAGNESIUM BLOODon 04-29-2017 Magnesium mass conc 2.1 mg/dL Normal 1.9-2.7 The [facility] Comment on above: Performed By: #### 4 1000, 42535, 51956, 54872, 30294, 70885 ####[facility] [facility].[address] PHOSPHORUS BLOODon 8 Phosphate mass conc 3.3 mg/dL Normal 2.5-5.0 The [facility] Comment on above: Performed By: #### 4 1000, 97758, 96327, 96352, 33061, 24815 ####[facility] [facility].[address] TACROLIMUSon 04-29-2017 Tacrolimus mass conc (Bld) 4.6 ng/mL Low 5.0-20.0 The [facility] Comment on above: Result Comment: The [employer] Tacrolimus assay is a delayed one-step immunoassayfor the quantitative determination of tacrolimus in human whole bloodusing the chemiluminescent microparticle immunoassay (CMIA) technologywith flexible assay protocols, referred to as Chemiflex. Performed By: #### 4 1000, 54352, 38608, 42104, 33214, 85681 ####[place] [id number] [facility].[address] URIC ACID BLOODon 04-29-2017 Urate mass conc 4.6 mg/dL Normal 2.3-6.6 The [facility] Comment on above: Performed By: #### 4 1000, 32243, 74928, 03452, 59367, 17896 ####[facility] [place] [address], [facility] CBC W/DIFFon 03-27-2017 Basophils Auto #/vol (Bld) 0.2 % Normal 0.0-2.0 The [facility] Comment on above: Performed By: #### 4 1000, 09537, 49809, 13808, 13554, 70976 ####[facility] Eosinophils/100 WBC Auto (Bld) 1.8 % Normal 0.0-5.0 The [facility] Comment on above: Performed By: #### 4 1000, 40083, 98779, 13328, 13184, 68284 ####[facility] Erythrocyte distribution width Auto Ratio (RBC) 13.6 % Normal 11.5-16.9 The [facility] Comment on above: Performed By: #### 4 1000, 47332, 30382, 15685, 96520, 78079 ####[facility] Hematocrit Auto Volume Fraction (Bld) 47.6 % Normal 36.0-48.0 The [facility] Comment on above: Performed By: #### 4 1000, 79852, 56343, 98960, 80000, 95401 ####[facility] Hemoglobin mass conc (Bld) 15.8 g/dL High 12.0-15.0 The [facility] Comment on above: Performed By: #### 4 1000, 63118, 35831, 04609, 39755, 97528 ####[facility] Lymphocytes/100 WBC Auto (Bld) 14.5 % Low 20.0-40.0 The [facility] Comment on above: Performed By: #### 4 1000, 24146, 61282, 16263, 11774, 65090 ####[facility] [place] [address], [facility] MCH Auto Entitic mass (RBC) 29.0 pg Normal 24.0-32.0 The [facility] Comment on above: Performed By: #### 4 1000, 64375, 64477, 25974, 10555, 14353 ####[facility] MCHC Auto mass conc (RBC) 33.3 g/dL Normal 32.0-36.0 The [facility] Comment on above: Performed By: #### 4 1000, 17733, 72438, 49453, 23551, 54419 ####[facility] MCV Auto Entitic volume (RBC) 87.4 fL Normal 80.0-100.0 The [facility] Comment on above: Performed By: #### 4 1000, 70706, 08268, 20941, 17585, 09749 ####[facility] METHOD Normal RBC Morphology Normal The [facility] Comment on above: Performed By: #### 4 1000, 77551, 30132, 03852, 73930, 78793 ####[facility] MONOS 9.6 % High 2-8 [facility] Comment on above: Performed By: #### 4 1000, 56385, 07563, 57499, 05957, 49794 ####[facility] Neutrophils/100 WBC Auto (Bld) 73.9 % High 50-70 The [facility] Comment on above: Performed By: #### 4 1000, 91120, 74421, 46139, 96444, 42918 ####[facility] PLAT CNT 228 Thou/mm3 Normal 100-400 The [facility] Comment on above: Performed By: #### 4 1000, 56497, 55085, 77128, 17391, 20081 ####[facility] RBC Auto #/vol (Bld) 5.45 mill/mm3 Normal 3.50-5.50 T he [facility] Comment on above: Performed By: #### 4 1000, 57813, 98470, 41441, 80077, 14627 ####[facility] [place] [address], [facility] WBC Auto #/vol (Bld) 6.5 Thou/mm3 Normal 4.0-10.0 Th e [facility] Comment on above: Performed By: #### 4 1000, 80718, 71034, 83326, 53136, 71263 ####[facility] COMP METABOLIC PANELon 03-27 Albumin mass conc 4.7 g/dL Normal 3.5-5.7 The [facility] Comment on above: Performed By: #### 4 1000, 01272, 03647, 84582, 31738, 25585 ####[facility] ALKALINE PHOSPH 99 IU/L Normal 34-104 The [facility] Comment on above: Performed By: #### 4 1000, 26108, 47553, 92898, 47267, 34425 ####[facility] ALT enzyme act/vol 19 U/L Normal 7-52 The [facility] Comment on above: Performed By: #### 4 1000, 82977, 11785, 19725, 59856, 19074 ####[facility] [place] [address], [facility] AST enzyme act/vol 21 U/L Normal 13-39 The [facility] Comment on above: Performed By: #### 4 1000, 51606, 03388, 41153, 46843, 25082 ####[facility] [place] [address], [facility] Bilirubin mass conc 0.6 mg/dL Normal 0.3-1.0 The [facility] Comment on above: Performed By: #### 4 1000, 99196, 99943, 58429, 06317, 53271 ####[facility] [place] [address], [facility] Calcium mass conc 10.2 mg/dL Normal 8.6-10.3 [facility] Comment on above: Performed By: #### 4 1000, 18128, 12358, 18247, 84397, 78921 ####[facility] [place] [address], [facility] Chloride molar conc 104 mmol/L Normal 98-107 The [facility] Comment on above: Performed By: #### 4 1000, 16551, 67658, 65474, 77749, 49051 ####[facility] [place] [address], [facility] CO2 molar conc 28 mmol/L Normal 21-31 The [facility] Comment on above: Performed By: #### 4 1000, 04672, 42188, 45586, 06752, 44124 ####[facility] [place] [address], [facility] Creatinine mass conc 0.78 mg/dL Normal 0.60-1.20 The [facility] Comment on above: Performed By: #### 4 1000, 87672, 37771, 74639, 48788, 88724 ####[facility] [place] [address], [facility] GFR/1.73 sq M predicted among blacks MDRD vol rate/area (S/P/Bld) mL/min/{1.73_m2} Normal >60 The [facility] Comment on above: Performed By: #### 4 1000, 83497, 46700, 07959, 37182, 03561 ####[facility] [place] [address], [facility] GFR/1.73 sq M predicted among non-blacks MDRD vol rate/area (S/P/Bld) mL/min/{1.73_m2} Normal >60 The [facility] Comment on above: Performed By: #### 4 1000, 57508, 95538, 49488, 45717, 81305 ####[facility] [place] [address], [facility] Glucose mass conc 87 mg/dL Normal 70-100 The [facility] Comment on above: Performed By: #### 4 1000, 48328, 53674, 92404, 78940, 36227 ####[facility] [facility] [place] [address], [facility] Potassium molar conc 4.1 mmol/L Normal 3.5-5.1 The [facility] Comment on above: Performed By: #### 4 1000, 72130, 66648, 09366, 78919, 18431 ####[facility] [facility] [place] [address], [facility] Protein mass conc 7.8 g/dL Normal 6.0-8.3 The [facility] Comment on above: Performed By: #### 4 1000, 60122, 51879, 15592, 93569, 42809 ####[facility] [place] [address], [facility] Sodium molar conc 139 mmol/L Normal 136-145 The [facility] Comment on above: Performed By: #### 4 1000, 83657, 12233, 66974, 99090, 92991 ####[facility] [place] [address], [facility] Urea nitrogen mass conc 19 mg/dL Normal 7-25 The [facility] Comment on above: Performed By: #### 4 1000, 75557, 90795, 12048, 06652, 32500 ####[facility] [place] [address], [facility] DIRECT BILIon 03-27-2017 Bilirubin.direct mass conc 0.1 mg/dL Normal 0.0-0.2 [facility] Comment on above: Performed By: #### 4 1000, 63763, 91455, 67041, 93506, 49020 ####[facility] EVEROLIMUS 80782nm 7 EVEROLIMUS 5.3 ng/mL Normal The [facility] Comment on above: Result Comment: [...] the transplantcenter.Test developed and characteristics determined by [employer]. See Compliance Statement B: [employer]/CSP[employer]formed by [employer],[address] [place] [id number] wnr.[employer], Leonid Antonio MD - Lab. Director LIPID PROFILEon 03-27-2017 Cholesterol in HDL mass conc 50 mg/dL Normal 23-92 The [facility] Comment on above: Result Comment: Slig ht variation in normal range could be due to gender and/or age.HDL CHOLESTEROL REFERENCE RANGE:20 years and older Cardiovascular Risk> or =60 mg/dL [id number] TO 59 mg/dL Low Risk<40 mg/dL High Risk Performed By: #### 4 1000, 29883, 46581, 65863, 01594, 95160 ####[facility] [place] [address], [facility] Cholesterol in LDL mass conc 66 mg/dL Normal 0-130 The [facility] Comment on above: Result Comment: LDL IS A CALCULATIONLDL IS ONLY VALID IF THE TRIG IS LESS THAN 400. Performed By: #### 4 1000, 39730, 07952, 36408, 12761, 36391 ####[facility] [place] [address], [facility] Cholesterol mass conc 147 mg/dL Normal 120-200 The [facility] Comment on above: Result Comment: CHOL ESTEROL REFERENCE RANGE:20 YEARS AND OLDER CARDIOVASCULAR RISKLess than 200 mg/dl Low Krhs087 to 239 mg/dl Borderline Vveo759 mg/dl and greater High Risk Performed By: #### 4 1000, 54918, 70692, 73232, 19638, 12060 ####[facility] [place] [address], [facility] Cholesterol.total/Cho lesterol in HDL mass ratio 2.9 {ratio} Normal .0-4.5 The [facility] Comment on above: Performed By: #### 4 1000, 72837, 64915, 56392, 61887, 08056 ####[facility] [place] [address], [facility] NON-HDL CHOLESTEROL 97 mg/dL Normal [facility] Comment on above: Performed By: #### 4 1000, 19787, 25757, 61036, 99934, 95620 ####[facility] [place] [address], [place] Triglyceride mass conc 157 mg/dL High 40-149 The [facility] Comment on above: Result Comment: TRIG LYCERIDE REFERENCE RANGE:20 YEARS AND OLDER CARDIOVASCULAR RISKLESS THAN 150 mg/dl LOW [id number] TO 199 mg/dl BORDERLINE NUXL902 mg/dl AND GREATER HIGH RISK Performed By: #### 4 1000, 89547, 01040, 51920, 64440, 84409 ####[facility] VLDL CHOL 31 mg/dL Normal 0-40 The [facility] Comment on above: Performed By: #### 4 1000, 29892, 63482, 90970, 44206, 24264 ####[facility] MAGNESIUM BLOODon 03-27-2017 Magnesium mass conc 1.9 mg/dL Normal 1.9-2.7 The [facility] Comment on above: Performed By: #### 4 1000, 89659, 40667, 65137, 57056, 58310 ####[facility] PHOSPHORUS BLOODon 7 Phosphate mass conc 3.4 mg/dL Normal 2.5-5.0 The [facility] Comment on above: Performed By: #### 4 1000, 96125, 12164, 50433, 72288, 43094 ####[facility] TACROLIMUSon 03-27-2017 Tacrolimus mass conc (Bld) 3.7 ng/mL Low 5.0-20.0 The [facility] Comment on above: Result Comment: The [employer] Tacrolimus assay is a delayed one-step immunoassayfor the quantitative determination of tacrolimus in human whole bloodusing the chemiluminescent microparticle immunoassay (CMIA) technologywith flexible assay protocols, referred to as Chemiflex. Performed By: #### 4 1000, 97518, 21727, 51522, 12733, 69440 ####[facility] URIC ACID BLOODon 03-27-2017 Urate mass conc 4.1 mg/dL Normal 2.3-6.6 The [facility] Comment on above: Performed By: #### 4 1000, 24314, 54927, 91398, 03854, 15862 ####[facility] [facility].[address] BK VIRUS QUANTITATION PCR BL OODon 02-26-2017 BKV QUANT PCR Not detected Normal The [facility] Comment on above: Result Comment: Meth od: BK virus was measured by quantitative polymerase chain reactionusing a TaqMan probe targeting the polyomavirus BK MILL OILER-1 gene.The lower limit of quantitation of the assay is 500 copies of BK genomeper milliliter of plasma or urine, and any detectable BK DNA below thatlevel is reported as: Detected, <500 copies/ml. Serial BK virusmeasurement can be used to monitor disease activity. (Reference:Kelsie vaughanl. J CLIN MICRO 2004; 42:9447-4635).This test was developed and its performance characteristics determinedby the [facility]. It has not been approvedby the US Food and Drug Administration. However, such approval is notrequired for clinical implementation, and test results have been shownto be clinically useful. This laboratory is CAP accredited and CLIAcertified to perform high complexity testing. Performed By: #### 4 1000, 41078, 96522, 16033, 59825, 11851 ####[facility] [facility].[address] LOG 10 COPIES Not detected Normal The [facility] Comment on above: Performed By: #### 4 1000, 60374, 12511, 34507, 28765, 54145 ####[facility] [facility].[address] CBC W/DIFFon 02-26-2017 Basophils Auto #/vol (Bld) 0.3 % Normal 0.0-2.0 The [facility] Comment on above: Performed By: #### 5 0103 ####[facility] [facility].[address] Eosinophils/100 WBC Auto (Bld) 2.2 % Normal 0.0-5.0 The [facility] Comment on above: Performed By: #### 5 0103 ####[facility] Erythrocyte distribution width Auto Ratio (RBC) 13.8 % Normal 11.5-16.9 The [facility] Comment on above: Performed By: #### 5 0103 ####[facility] Hematocrit Auto Volume Fraction (Bld) 44.9 % Normal 36.0-48.0 The [facility] Comment on above: Performed By: #### 5 0103 ####[facility] Hemoglobin mass conc (Bld) 15.0 g/dL Normal 12.0-15.0 The [facility] Comment on above: Performed By: #### 5 0103 ####[facility] Lymphocytes/100 WBC Auto (Bld) 18.9 % Low 20.0-40.0 The [facility] Comment on above: Performed By: #### 5 0103 ####[facility] MCH Auto Entitic mass (RBC) 28.9 pg Normal 24.0-32.0 The [facility] Comment on above: Performed By: #### 5 0103 ####[facility] MCHC Auto mass conc (RBC) 33.4 g/dL Normal 32.0-36.0 The [facility] Comment on above: Performed By: #### 5 3 ####[facility] MCV Auto Entitic volume (RBC) 86.6 fL Normal 80.0-100.0 The [facility] Comment on above: Performed By: #### 5 3 ####[facility] [facility].[address] METHOD Normal RBC Morphology Normal The [facility] Comment on above: Performed By: #### 5 3 ####[facility] [facility].[address] MONOS 11.7 % High 2-8 The [facility] Comment on above: Performed By: #### 5 102 ####[facility] [facility].[address] Neutrophils/100 WBC Auto (Bld) 66.9 % Normal 50-70 The [facility] Comment on above: Performed By: #### 5 3 ####[facility] [facility].[address] PLAT CNT 230 Thou/mm3 Normal 100-400 The [facility] Comment on above: Performed By: #### 5 3 ####[facility] [facility].[address] RBC Auto #/vol (Bld) 5.18 mill/mm3 Normal 3.50-5.50 T he [facility] Comment on above: Performed By: #### 5 3 ####[facility] [facility].[address] WBC Auto #/vol (Bld) 5.8 Thou/mm3 Normal 4.0-10.0 Th e [facility] Comment on above: Performed By: #### 5 102 ####[facility] [facility].[address] COMP METABOLIC PANELon 02-26 Albumin mass conc 4.7 g/dL Normal 3.5-5.7 The [facility] Comment on above: Performed By: #### 4 1000, 11441, 71852, 63098, 95664, 44380 ####[facility] [place] [address], [facility] ALKALINE PHOSPH 115 IU/L High 34-104 The [facility] Comment on above: Performed By: #### 4 1000, 92036, 26100, 27173, 92394, 95100 ####[facility] [place] [address], [facility] ALT enzyme act/vol 18 U/L Normal 7-52 The [facility] Comment on above: Performed By: #### 4 1000, 29400, 87031, 10418, 66134, 91516 ####[facility] [place] [address], [facility] AST enzyme act/vol 22 U/L Normal 13-39 The [facility] Comment on above: Performed By: #### 4 1000, 60322, 11022, 61546, 51986, 05086 ####[facility] [place] [address], [facility] Bilirubin mass conc 0.6 mg/dL Normal 0.3-1.0 The [facility] Comment on above: Performed By: #### 4 1000, 41835, 37016, 02482, 77368, 99660 ####[facility] [place] [address], [facility] Calcium mass conc 9.8 mg/dL Normal 8.6-10.3 The [facility] Comment on above: Performed By: #### 4 1000, 16249, 27631, 77375, 57370, 22034 ####[facility] [place] [address], [facility] Chloride molar conc 103 mmol/L Normal 98-107 The [facility] Comment on above: Performed By: #### 4 1000, 60661, 89963, 55501, 11077, 89923 ####[facility] [place] [address], [facility] CO2 molar conc 29 mmol/L Normal 21-31 The [facility] Comment on above: Performed By: #### 4 1000, 92752, 12521, 86389, 63812, 32601 ####[facility] [place] [address], [facility] Creatinine mass conc 0.78 mg/dL Normal 0.60-1.20 [facility] Comment on above: Performed By: #### 4 1000, 01313, 92317, 42418, 19296, 57166 ####[facility] [place] [address], [facility] GFR/1.73 sq M predicted among blacks MDRD vol rate/area (S/P/Bld) mL/min/{1.73_m2} Normal >60 The [facility] Comment on above: Performed By: #### 4 1000, 59755, 07422, 88657, 26431, 91528 ####[facility] [place] [address], [facility] GFR/1.73 sq M predicted among non-blacks MDRD vol rate/area (S/P/Bld) mL/min/{1.73_m2} Normal >60 The [facility] Comment on above: Performed By: #### 4 1000, 30894, 95646, 59664, 08481, 25600 ####[facility] [place] [address], [place] Glucose mass conc 94 mg/dL Normal 70-100 [facility] Comment on above: Performed By: #### 4 1000, 10026, 47496, 55642, 39463, 88789 ####[facility] [place] [address], [place] Potassium molar conc 3.8 mmol/L Normal 3.5-5.1 The [facility] Comment on above: Performed By: #### 4 1000, 55056, 33566, 52886, 75970, 33971 ####[facility] [place] [address], [facility] Protein mass conc 7.4 g/dL Normal 6.0-8.3 The [facility] Comment on above: Performed By: #### 4 1000, 21483, 05088, 59800, 74813, 04217 ####[facility] Sodium molar conc 136 mmol/L Normal 136-145 The [facility] Comment on above: Performed By: #### 4 1000, 19534, 85387, 52342, 25016, 24261 ####[facility] Urea nitrogen mass conc 19 mg/dL Normal 7-25 The [facility] Comment on above: Performed By: #### 4 1000, 33889, 13417, 10817, 09235, 11291 ####[facility] DIRECT BILIon 02-26-2017 Bilirubin.direct mass conc 0.1 mg/dL Normal 0.0-0.2 The [facility] Comment on above: Performed By: #### 4 1000, 53133, 64035, 75395, 32884, 32251 ####[facility] EVEROLIMUS 39125bh 7 EVEROLIMUS 5.9 ng/mL Normal The [facility] Comment on above: Result Comment: [...] the transplantcenter.Test developed and characteristics determined by [employer]. See Compliance Statement B: [employer]/CSPerformed by [employer],[address] [place] [address] [id number] tkn.[employer], Leonid Antonio MD - Lab. Director HEMOGLOBIN A1Con 02-26-2017 Glucose mass conc 108 mg/dL Normal 70-126 [facility] Comment on above: Performed By: #### 4 6004, 03471 ####[facility] Hemoglobin A1c/Hemoglobin.total mass fraction (Bld) 5.4 % Normal 4.0-6.0 The [facility] Comment on above: Performed By: #### 4 6971, 04483 ####[facility] LIPID PROFILEon 02-26-2017 Cholesterol in HDL mass conc 54 mg/dL Normal 23-92 The [facility] Comment on above: Result Comment: Slig ht variation in normal range could be due to gender and/or age.HDL CHOLESTEROL REFERENCE RANGE:20 years and older Cardiovascular Risk> or =60 mg/dL Ravdznbcu25 TO 59 mg/dL Low Risk<40 mg/dL High Risk Performed By: #### 4 1000, 11798, 88636, 56985, 47387, 90988 ####[facility] [place] [address], [facility] Cholesterol in LDL mass conc 70 mg/dL Normal 0-130 The [facility] Comment on above: Result Comment: LDL IS A CALCULATIONLDL IS ONLY VALID IF THE TRIG IS LESS THAN 400. Performed By: #### 4 1000, 18072, 48693, 89224, 34317, 40144 ####[facility] [place] [address], [facility] Cholesterol mass conc 144 mg/dL Normal 120-200 The [facility] Comment on above: Result Comment: CHOL ESTEROL REFERENCE RANGE:20 YEARS AND OLDER CARDIOVASCULAR RISKLess than 200 mg/dl Low Gikz056 to 239 mg/dl Borderline Taql261 mg/dl and greater High Risk Performed By: #### 4 1000, 59044, 71643, 27967, 41491, 50563 ####[facility] [place] [address], [facility] Cholesterol.total/Cho lesterol in HDL mass ratio 2.7 {ratio} Normal .0-4.5 [facility] Comment on above: Performed By: #### 4 1000, 63508, 99160, 23698, 74561, 29265 ####[facility] [place] [address], [facility] NON-HDL CHOLESTEROL 90 mg/dL Normal The [facility] Comment on above: Performed By: #### 4 1000, 24273, 16598, 28457, 99612, 73054 ####[facility] [place] [address], [facility] Triglyceride mass conc 101 mg/dL Normal 40-149 The [facility] Comment on above: Result Comment: TRIG LYCERIDE REFERENCE RANGE:20 YEARS AND OLDER CARDIOVASCULAR RISKLESS THAN 150 mg/dl LOW [id number] TO 199 mg/dl BORDERLINE BQEV681 mg/dl AND GREATER HIGH RISK Performed By: #### 4 1000, 32718, 72171, 81971, 27895, 32217 ####[facility] VLDL CHOL 20 mg/dL Normal 0-40 The [facility] Comment on above: Performed By: #### 4 1000, 72451, 93372, 27341, 82362, 67782 ####[facility] MAGNESIUM BLOODon 02-26-2017 Magnesium mass conc 1.9 mg/dL Normal 1.9-2.7 The [facility] Comment on above: Performed By: #### 4 1000, 43510, 76310, 90399, 06856, 09646 ####[facility] [facility].[address] PHOSPHORUS BLOODon 7 Phosphate mass conc 4.1 mg/dL Normal 2.5-5.0 [facility] Comment on above: Performed By: #### 4 1000, 42131, 74518, 26447, 64913, 61531 ####[facility] [facility].[address] TACROLIMUSon 02-26-2017 Tacrolimus mass conc (Bld) 4.2 ng/mL Low 5.0-20.0 The [facility] Comment on above: Result Comment: The [employer] Tacrolimus assay is a delayed one-step immunoassayfor the quantitative determination of tacrolimus in human whole bloodusing the chemiluminescent microparticle immunoassay (CMIA) technologywith flexible assay protocols, referred to as Chemiflex. Performed By: #### 4 6447, 17879 ####[facility] [facility] [place] [address], [facility] URIC ACID BLOODon 02-26-2017 Urate mass conc 4.3 mg/dL Normal 2.3-6.6 The [facility] Comment on above: Performed By: #### 4 1000, 64386, 22878, 03852, 72699, 69303 ####[facility] [place] [address] Vital Signs Date Time Vital Sign Value Performing Clinician Facility 06-01-2024 13:05-0500 Body height 152.4 cm Ester Hemmer PA Work Phone: [facility] 06-01-2024 13:05-0500 Body mass index (BMI) [Ratio] 24.65 kg/m2 Ester Hemmer PA Work Phone: [facility] 06-01-2024 13:05-0500 Body temperature 98.29 [degF] Ester Hemmer PA Work Phone: [facility] 06-01-2024 13:05-0500 Body weight 57.24 kg Ester Hemmer PA Work Phone: [facility] 06-01-2024 13:05-0500 Diastolic blood pressure 74 mm[Hg] Ester Hemmer PA Work Phone: [facility] 06-01-2024 13:05-0500 Heart rate 69 /min Ester Hemmer PA Work Phone: [facility] 06-01-2024 13:05-0500 Respiratory rate 16 /min Ester Hemmer PA Work Phone: [facility] 06-01-2024 13:05-0500 SaO2% (BldA) [Mass fraction] 95 % Ester Hemmer PA Work Phone: [facility] 06-01-2024 13:05-0500 Systolic blood pressure 112 mm[Hg] Ester Hemmer PA Work Phone: [facility] 08-30-2023 09:22-0400 Body height 182.88 cm [facility] 08-30-2023 09:22-0400 Body mass index (BMI) [Ratio] 17.9 kg/m2 [facility] 08-30-2023 09:22-0400 Body temperature 99.8 [degF] [facility] 08-30-2023 09:22-0400 Body weight 59.87 kg [facility] 08-30-2023 09:22-0400 Diastolic blood pressure 73 mm[Hg] [facility] 08-30-2023 09:22-0400 Heart rate 67 /min [facility] 08-30-2023 09:22-0400 SaO2% (BldA) [Mass fraction] 95 % [facility] 08-30-2023 09:22-0400 Systolic blood pressure 111 mm[Hg] [facility] 03-27-2023 11:30-0500 Body height 152.4 cm Cathy Bella Other [facility] [employer] Other 03-27-2023 11:30-0500 Body mass index (BMI) [Ratio] 25.39 kg/m2 Cathy Bella Other [employer] Other 03-27-2023 11:30-0500 Body temperature 97.5 [degF] Cathy Bella Other [employer] Other 03-27-2023 11:30-0500 Body weight 58.97 kg Cathy Bella Other [employer] Other 03-27-2023 11:30-0500 Respiratory rate 18 /min Cathy Bella Other [employer] Other 03-27-2023 11:30-0500 SaO2% (BldA) [Mass fraction] 96 % Cathy Bella Other [employer] Other 09-21-2022 09:00-0400 Body height 152.4 cm Martha Guevara Other [employer] Other 09-21-2022 09:00-0400 Body mass index (BMI) [Ratio] 22.46 kg/m2 Martha Guevara Other [employer] Other 09-21-2022 09:00-0400 Body temperature 97.6 [degF] Martha Guevara Other [employer] Other 09-21-2022 09:00-0400 Body weight 52.16 kg Martha Guevara Other [employer] Other 09-21-2022 09:00-0400 Diastolic blood pressure 70 mm[Hg] Martha Guevara Other [employer] Other 09-21-2022 09:00-0400 Respiratory rate 18 /min Martha Guevara Other [employer] Other 09-21-2022 09:00-0400 SaO2% (BldA) [Mass fraction] 96 % Martha Guevara Other [employer] Other 09-21-2022 09:00-0400 Systolic blood pressure 107 mm[Hg] Martha Guevara Other [employer] Other 01-12-2022 13:55-0400 Body height 152.4 cm Cathy Shayne Other [employer] Other 01-12-2022 13:55-0400 Body mass index (BMI) [Ratio] 19.53 kg/m2 Cathy Bella Other [employer] Other 01-12-2022 13:55-0400 Body temperature 96.9 [degF] Cathy Bella Other [employer] Other 01-12-2022 13:55-0400 Body weight 45.36 kg Cathy Bella Other [employer] Other 01-12-2022 13:55-0400 Respiratory rate 18 /min Cathy Bella Other [employer] Other 01-12-2022 13:55-0400 SaO2% (BldA) [Mass fraction] 97 % Cathy Bella Other [employer] Other 12-28-2021 10:20-0400 Body height 152.4 cm Martha Paola Other [employer] Other 12-28-2021 10:20-0400 Body mass index (BMI) [Ratio] 21.48 kg/m2 Martha Paola Other [employer] Other 12-28-2021 10:20-0400 Body temperature 98 [degF] Martha Paola Other [employer] Other 12-28-2021 10:20-0400 Body weight 49.9 kg Martha Smithmond Other [employer] Other 12-28-2021 10:20-0400 Respiratory rate 18 /min Martha Smithmond Other [employer] Other 12-28-2021 10:20-0400 SaO2% (BldA) [Mass fraction] 97 % Martha Paola Other [employer] Other 12-25-2021 10:05-0400 Body height 152.4 cm Cathy Bella Other [employer] Other 12-25-2021 10:05-0400 Body mass index (BMI) [Ratio] 21.48 kg/m2 Cathy Bella Other [employer] Other 12-25-2021 10:05-0400 Body temperature 96 [degF] Cathy Bella Other [employer] Other 12-25-2021 10:05-0400 Body weight 49.9 kg Cathy Bella Other [employer] Other 12-25-2021 10:05-0400 Respiratory rate 18 /min Cathy Bella Other [employer] Other 12-25-2021 10:05-0400 SaO2% (BldA) [Mass fraction] 97 % Cathy Bella Other [employer] Other 10-27-2021 12:35-0400 Body height 152.4 cm Cathy Bella Other [employer] Other 10-27-2021 12:35-0400 Body mass index (BMI) [Ratio] 22.85 kg/m2 Cathy Bella Other [employer] Other 10-27-2021 12:35-0400 Body weight 53.07 kg Cathy Bella Other [employer] Other 10-27-2021 12:35-0400 Diastolic blood pressure 87 mm[Hg] Cathy Bella Other [employer] Other 10-27-2021 12:35-0400 SaO2% (BldA) [Mass fraction] 98 % Cathy Bella Other [employer] Other 10-27-2021 12:35-0400 Systolic blood pressure 130 mm[Hg] Cathy Bella Other [employer] Other 08-14-2021 10:40-0400 Body height 152.4 cm Martha Guevara Other [employer] Other 08-14-2021 10:40-0400 Body mass index (BMI) [Ratio] 22.46 kg/m2 Martha Guevara Other [employer] Other 08-14-2021 10:40-0400 Body temperature 96.7 [degF] Martha Guevara Other [employer] Other 08-14-2021 10:40-0400 Body weight 52.16 kg Martha Guevara Other [employer] Other 08-14-2021 10:40-0400 Diastolic blood pressure 68 mm[Hg] Martha Guevara Other [employer] Other 08-14-2021 10:40-0400 Respiratory rate 20 /min Martha Guevara Other [employer] Other 08-14-2021 10:40-0400 SaO2% (BldA) [Mass fraction] 98 % Martha Guevara Other [employer] Other 08-14-2021 10:40-0400 Systolic blood pressure 144 mm[Hg] Martha Guevara Other [employer] Other Encounters Encounter Date Encounter Type Care Provider Facility Start: 07-16-2024 End: 07-16-2024 Clinisync Result Encounter Generic External Data Provider [facility] External Department Unsolicited Start: 07-16-2024 End: 07-16-2024 Clinisync Result Encounter Generic External Data Provider [facility] External Department Unsolicited Start: 06-01-2024 End: 06-01-2024 Jay Padilla PA Work Phone: [facility] Start: 06-01-2024 End: 06-01-2024 Bamboo flowsheet Ester STEIN Work Phone: [facility] Start: 06-01-2024 End: 06-01-2024 Patient encounter procedure Ester STEIN Work Phone: [facility] Comment on above: Medicare annual well ness visit, subsequent (Primary Dx); ACP (advance care planning); Acute non-recurrent pansinusitis; Acute bronchitis, unspecified organism; Primary hypertension ([facility]/HCC); PKD (polycystic kidney disease); Joint contracture of foot, unspecified laterality; Immunosuppression ([facility]); Abnormal complete blood count; Current moderate episode of major depressive disorder without prior episode (HCC) ([facility]); Elevated alkaline phosphatase level; Estrogen deficiency; Generalized anxiety disorder ([facility]); Hypercholesteremia ([facility]); Hypomagnesemia; Renal transplant recipient ([facility]) Start: 06-01-2024 End: 06-01-2024 ambulatory [...] Department Unsolicited Start: 04-01-2024 End: 04-01-[address] [facility] Start: 03-19-2024 End: 03-19-2024 Clinisync Result Encounter [...] 09-23-2023 End: 09-23-2023 ambulatory VIRGIL HAYNES [facility] Start: 09-02-2023 End: 09-02-2023 ambulatory ESTER PADILLA Not Available Start: 08-30-2023 End: 08-30-2023 [facility]ulatory [facility] Work Phone: Start: 08-30-2023 End: 08-30-2023 Patient encounter procedure [facility] [place] Work Phone: Start: 03-27-2023 End: 03-27-2023 ambulatory Cathy Bella Other [employer] Other Start: 03-27-2023 Office outpatient vi sit 25 minutes Cathy Bella [facility] [place] Start: 09-21-2022 End: 09-21-2022 ambulatory Martha Guevara Other [employer] Other Start: 09-21-2022 Office outpatient vi sit 15 minutes Martha Guevara [facility] [place] Start: 08-12-2022 End: 08-13-[address] DOE BRIDGES Facility:[facility]1 Start: 07-23-2022 End: 07-24-[address] RAMON CARROLL Facility:[facility]1 Start: 07-08-2022 End: 07-09-[address] RAMON CARROLL Facility:[facility]1 Start: 06-10-2022 End: 06-11-[address] DOE RBIDGES Facility:[facility]1 Start: 05-10-2022 End: 05-11-[address] DOE BRIDGES Facility:[facility]1 Start: 04-08-2022 End: 04-09-[address] DOE BRIDGES Facility:[facility]1 Start: 03-11-2022 End: 03-12-[address] DOCTOR SHAWC Facility:[facility]1 Start: 02-08-2022 End: 02-09-[address] DOE BRIDGES Facility:[facility]1 Start: 01-28-2022 End: 01-29-[address] DOCTOR SHAWC Facility:[facility]1 Start: 01-12-2022 End: 01-12-2022 ambulatory Cathy Bella Other [employer] Other Start: 01-12-2022 Office outpatient vi sit 15 minutes Cathy Bella [facility] [place] Start: 01-07-2022 End: 01-07-2022 ambulatory ISATU GUAMAN . Facility:[facility]1 Start: 01-03-2022 End: 01-04-[address] VIRGIL SWIFT Facility:[facility]1 Start: 12-28-2021 End: 12-28-2021 ambulatory Martha Guevara Other [employer] Other Start: 12-28-2021 Office outpatient vi sit 15 minutes Martha Guevara [facility] [place] Start: 12-25-2021 End: 12-25-2021 ambulatory Cathy Bella Other [employer] Other Start: 12-25-2021 Office outpatient vi sit 25 minutes Cathy Bella [facility] [place] Start: 12-05-2021 End: 12-06-[address] DOCTOR CERNA Facility:[facility]1 Start: 11-07-2021 End: 11-08-[address] DOCTOR SHAWC Facility:[facility]1 Start: 10-27-2021 End: 10-27-2021 ambulatory Cathy Bella Other [employer] Other Start: 10-27-2021 Office outpatient vi sit 15 minutes Cathy Bella [facility] [place] Start: 10-15-2021 End: 10-16-[address] DOCTOR MISC Facility:[facility]1 Start: 10-08-2021 End: 10-09-[address] DOCTOR MISC Facility:[facility]1 Start: 09-10-2021 End: 09-11-[address] DOCTOR MISC Facility:[facility]1 Start: 08-14-2021 End: 08-14-2021 ambulatory Martha Guevara Other [facility] [employer] Other Start: 08-14-2021 Office outpatient vi sit 15 minutes Martha Guevara [facility] [place] Start: 12-31-2017 End: 01-01-2018 Patient encounter VIRGIL HAYNES Facility:[facility] Start: 12-25-2017 End: 12-26-2017 Patient encounter ROSALINDA ROSENBAUM Facility:[facility] Start: 10-30-2017 End: 10-31-2017 Patient encounter ROSALINDA ROSENBAUM Facility:[facility] Start: 10-23-2017 End: 10-24-2017 Patient encounter ROSALINDA ROSENBAUM Facility:[facility] Start: 09-25-2017 End: 09-26-2017 Patient encounter ROSALINDA ROSENBAUM Facility:[facility] Start: 08-26-2017 End: 08-27-2017 Patient encounter ROSALINDA ROSENBAUM Facility:[facility] Start: 07-23-2017 End: 07-24-2017 Patient encounter ROSALINDA ROSENBAUM Facility:[facility] Start: 06-20-2017 End: 06-21-2017 Patient encounter ROSALINDA ROSENBAUM Facility:[facility] Start: 05-27-2017 End: 05-28-2017 Patient encounter ROSALINDA ROSENBAUM Facility:[facility] Start: 04-29-2017 End: 04-30-2017 Patient encounter ROSALINDA ROSENBAUM Facility:[facility] Start: 03-27-2017 End: 03-28-2017 Patient encounter ROSALINDA ROSENBAUM Facility:[facility] Start: 02-26-2017 End: 02-27-2017 Patient encounter DOE BRIDGES Facility:[facility] Procedures Date Procedure Procedure Detail Performing Clinician Start: 07-16-2024 ALL CBC WITH AUTO DIFF Generic External Data Provider Start: 05-21-2024 ALL CBC WITH AUTO DIFF Generic External [...] Start: 02-13-2024 [facility] CMP (CMP) (FOR REMOTE [facility] USE) Generic External Data Provider Start: 02-13-2024 [...] History of renal transplant Renal transplant recipient ([facility]) Ester STEIN Work Phone: Plan [...] [facility] [address] [place] [address] Ester Padilla PA [address] [facility] [address] [place] [address] Arrived [facility] Comment on above: Arrived Start: 04-02-2024 Medicare Annual Well ness (AWV) Medicare Annual Wellness (AWV) [facility] Start: 11-30-2023 Influenza vaccination Influenza Vacc ine (#1) [facility] Start: 07-24-2023 Screening for malign ant neoplasm of breast Mammogram [facility] Start: 11-12-1975 Pneumococcal Vaccine : 65+ Years (1 of 2 - PCV) Pneumococcal Vaccine: 65+ Years (1 of 2 - PCV) [facility] Start: 1962 Pneumococcal Vaccine : 65+ Years (1 of 2 - PCV) Pneumococcal Vaccine: 65+ Years (1 of 2 - PCV) [facility] Start: 1956 Screening for malign ant neoplasm of colon [facility] Immunizations Immunization Date Immunization Notes Care Provider [facility] 02-19-2024 influenza, injectabl e, madin yaron canine kidney, preservative free Ester STEIN Work Phone: [facility] 01-10-2023 Influenza, Seasonal, Quadrivalent, Adjuvanted Generic Provider [facility] 01-10-2023 influenza virus vaccine, unspecified formulation Generic Provider [facility] 09-16-2022 zoster vaccine recombinant Generic Provider [facility] 07-22-2022 zoster vaccine recombinant Generic Provider [facility] 02-19-2022 Influenza, injectabl e, Madin Nazareth Canine Kidney, preservative free, quadrivalent Generic Provider [facility] 02-19-2022 SARS-COV-2 (COVID-19 ) vaccine, mRNA, spike protein, LNP, bivalent, PF Generic Provider [facility] 01-09-2021 influenza, seasonal, injectable Generic Provider [facility] 12-12-2019 influenza, injectabl e, quadrivalent, preservative free Generic Provider [facility] 12-26-2018 influenza, injectabl e, quadrivalent, contains preservative Generic Provider [facility] 01-21-2018 influenza, injectabl e, quadrivalent, contains preservative Generic Provider [facility] 12-29-2017 influenza, injectabl e, quadrivalent, preservative free Generic Provider [facility] 12-20-2016 influenza, injectabl e, quadrivalent, preservative free Generic Provider [facility] 12-02-2016 seasonal influenza, intradermal, preservative free Generic Provider [facility] 01-16-2015 influenza, injectabl e, quadrivalent, preservative free Generic Provider [facility] 03-16-2009 influenza virus vaccine, split virus (incl. purified surface antigen) Martha Guevara Other [employer] Other 03-16-2009 influenza virus vaccine, unspecified formulation [facility] Payers Date Payer Category Payer Medicare [employer] MEDIC[employer] ADVANTAGE [facility] MEDICARE ADVANTAGE [id number] 2021-Present [address] [place] [id number] 2021 Medicare (Managed Care) [facility] ADVANTAGE [id number] 1959 [facility] [id number] 1959 Self-pay 1959 Unknown [id number] 1956 Unknown [id number] 2.16.840.1.910722.3.579. 2.647 1956 Unknown [id number] 2.16.840.1.461703.3.579. 2.647 1956 Unknown [id number] 2.16.840.1.519038.3.579. 2.647 1956 Unknown [id number] 2.16.840.1.386097.3.579. 2.647 1956 Unknown [id number] 2.16.840.1.689443.3.579. 2.647 1956 Unknown [id number] 2.16.840.1.899858.3.579. 2.647 1956 Unknown [id number] 2.16.840.1.607369.3.579. 2.647 1956 Unknown [id number] 2.16.840.1.949117.3.579. 2.647 1956 Unknown [id number] 2.16.840.1.479422.3.579. 2.647 1956 Unknown [id number] 2.16.840.1.536754.3.579. 2.647 1956 Unknown [id number] 2.16.840.1.525784.3.579. 2.647 1956 Unknown [id number] 2.16.840.1.920285.3.579. 2.647 1956 Unknown [id number] 2.16.840.1.598283.3.579. 2.593 1956 Unknown [id number] 2.16.840.1.622190.3.579. 2.59 1956 Unknown [id number] 2.16.840.1.716677.3.579. 2.59 1956 Unknown [id number] 2.16.840.1.825740.3.579. 2.59 1956 Unknown [id number] 2.16.840.1.077878.3.579. 2.59 1956 Unknown [id number] 2.16.840.1.203152.3.579. 2.59 1956 Unknown [id number] 2.16.840.1.015320.3.579. 2.593 1956 Unknown [id number] 2.16.840.1.927544.3.579. 2.593 1956 Unknown [id number] 2.16.840.1.635524.3.579. 2.593 1956 Unknown [id number] 2.16.840.1.357719.3.579. 2.593 1956 Unknown [id number] 2.16.840.1.487036.3.579. 2.593 1956 Unknown [id number] 2.16.840.1.363767.3.579. 2.593 1956 Unknown [id number] 2.16.840.1.418556.3.579. 2.593 1956 Unknown [id number] 2.16.840.1.863706.3.579. 2.593 1956 Unknown [id number] 2.16.840.1.434020.3.579. 2.593 1956 Unknown [id number] 2.16.840.1.947722.3.579. 2.1259 1956 Unknown [id number] 2.16.840.1.003513.3.579. 2.1259 Unknown [id number] 2.16.840.1.073946.3.579. 2.593 Unknown Amy /BS [id number] Social History Date Type Detail Facility Unknown if ever smoked [employer] Other Start: 09-02-2023 End: 06-01-2024 Sex Assigned At [employer] Other Start: 01-29-2023 End: 08-30-2023 Tobacco smoking status PAIS Never smoked tobacco (finding) [facility] Start: 1955 Sex Assigned At Female F [facility] Start: 01-29-2023 Tobacco use and exposure Smokeless tobacco non-user [facility] Start: 09-02-2023 End: 06-01-2024 Alcoholic beverage intake Lifetime non-drinker (finding) [facility] Start: 09-02-2023 End: 06-01-2024 History of Social function [facility] Start: 1955 Sex assigned at Not on file N [facility] Clinical Notes 11-10-2007 [...] Do you have a medical power of deputy commonwealth's attorney?: Yes Current Outpatient Medications on File [...] and 3 tablets before bedtime. nystatin (Mycostatin) [id number] UNIT/ML suspension SWISH AND SWALLOW 5 MLS [...] level 01/29/2023 History of stress test Hypertension ([facility]) Joint contracture of foot, unspecified laterality 01/29/2023 Polycystic kidney 2013 Renal transplant recipient ([facility]) 01/29/2023 Past Surgical History: Procedure [...] kidney disease) The patient is seeing a medical transcriber for this condition, treatment is deferred to that specialist. Correspondence from that specialist and any available testing were reviewed during today's visit. 7. Joint contracture of foot, unspecified laterality This is a chronic medical condition that is stable since last assessment. No changes in treatment are suggested at this time. 8. Immunosuppression (CMS/HCC) The patient is seeing a medical transcriber for this condition, treatment is deferred to that specialist. Correspondence from that specialist and any available testing were reviewed during today's visit. 9. Abnormal complete blood count The patient is seeing a medical transcriber for this condition, treatment is deferred to [...] with preventative screenings. 13. Generalized anxiety disorder (CMS/HCC) This is a chronic medical condition [...] with routine labs. 16. Renal transplant recipient (CMS/HCC) The patient is seeing a medical transcriber for this condition, treatment is deferred to that specialist. Correspondence from that specialist and any available testing were reviewed during today's visit. Follow up in about 1 year (around 06/01/2025) for Medicare Wellness Visit. Ester CARRASCO PA-C documented in this encounter [facility] 04-01-2024 Note Transplant Clinic Patient : Tanika [...] Continue meds and MONTHLY Labs with New [facility] standing Order given today. Follow up 6 months or sooner if needed. See Derm See PCP as scheduled: Dr Carroll. Magic Mouthwash script provided. Chart Review today: 03.17.23 Pt presents visit with . Pt states labs done Last week in [facility] and [place] calling for results. Pt seeing Derm in [place] for lesion: forearm and other lesions. Hx: [...] Hgb. Pt AGAIN instructed to use our [facility] Transplant standing order for her monthly labs. Pt reports B/P stable at home Discussed hydration PLan of Care: Continue meds and MONTHLY Labs with [facility] standing Order. Follow up 6 months [...] <<<<<<<<<<<<<<<<<<<<<<<<<<<<<<<<<< < (more content not included)... [facility] 12-18-2023 Note Will review by phone today with Dr. Negro Vivas tac level 3.9 for 2 consecutive months and if any dose changes, will notify this pt and amend this note. Most recent IR tacrolimus dosing on record is 0.5mg BID [facility] 12-09-2023 Note Prior auth for Mycop henolate was submitted via [facility] Approved- scanned into media Keycode: [id number] [facility] 11-26-2023 Note Prior auth submitted via [facility] PA Case: [id number], Status: Approved, Coverage Starts on: 08/27/2023 12:00:00 AM, Coverage Ends on: 11/25/2024 12:00:00 AM Keycode: [id number] [facility] 09-23-2023 Note 09/23/23 Chief Complaint Patient presents with Kidney Follow-up Pt has been having sores in her mouth for the past month. PCP: Ramon Carroll MD Txp Referring: Preferred Pharmacy: [facility] - [place], [place] - [facility] [address] [facility] [address] [id number] [address] [facility] [place], [place] - [address] [facility] [address] [facility] [address] Subjective Visit Vitals BP 139/74 (BP Location: Left arm, Patient Position: Sitting, BP Cuff Size: Adult) Pulse 59 Temp 36.3 ???C (97.3 ???F) (Oral) Resp 18 Ht 1.524 m (5') Wt 58.5 kg (129 lb) SpO2 99% BMI 25.19 kg/m??? OB Status Postmenopausal Smoking Status Never BSA 1.57 m??? No Known Allergies Medication Documentation Review Audit Reviewed by Ester Frederick MA (Rn Acls) on 09/23/23 at 0859 Medication Order Taking? Sig Documenting Provider Last Dose Status amLODIPine (Norvasc) 5 mg tablet [id number] Yes TAKE 1 TABLET BY MOUTH EVERY DAY Virgil Haynes NP Taking Active amoxicillin (Amoxil) 500 mg capsule [id number] No 1 capsule every 8 (eight) hours. Historical Provider, Not Taking Active atorvastatin (Lipitor) 20 mg tablet [id number] Yes TAKE 1 TABLET BY MOUTH EVERY DAY AT BEDTIME Virgil Haynes NP Taking Active baclofen (Lioresal) 10 mg tablet [id number] No Historical ProviderMD Not Taking Active cyanocobalamin (Vitamin B-12) 500 mcg tablet [id number] Yes in the morning. Historical ProviderMD Taking Active magnesium oxide (Mag-Ox) 400 mg (241.3 mg magnesium) tablet [id number] Yes Take 400 mg by mouth in the morning. Historical Provider, Taking Active mycophenolate (Myfortic) 180 mg EC tablet [id number] Yes TAKE 4 TABLETS BY MOUTH IN THE MORNING AND AT BEDTIME Patient taking differently: Take 540 mg by mouth in the morning and at bedtime. Doe Bridges MD Taking Active omega-3 fatty acids-fish oil (Fish OiL Extra Strength) 435-880 mg capsule [id number] Yes 1 capsule 1 (one) time each day at the same time. Historical ProviderMD Taking Active PARoxetine (Paxil) 10 mg tablet [id number] Yes Take 10 mg by mouth in the morning. Historical Provider, Taking Active potassium gluconate 595 mg (99 mg) tablet [id number] Yes every 12 (twelve) hours. Historical Provider, Taking Active spironolactone (Aldactone) 25 mg tablet [id number] Yes TAKE 1 TABLET BY MOUTH EVERY DAY Virgil Haynes NP Taking Active tacrolimus (Prograf) 0.5 mg capsule [id number] Yes TAKE ONE CAPSULE BY MOUTH EVERY [...] Continue meds and MONTHLY Labs with New [facility] standing Order given today. Follow up 6 months or sooner if needed. See Derm See PCP as scheduled: Dr Carroll. Magic Mouthwash script provided. Chart Review today: 03.17.23 Pt presents visit with . Pt states labs done Last week in [facility] and [place] calling for results. Pt seeing Derm in [place] for lesion: forearm and other lesions. Hx: melanoma PCP: local Dr Khoury (more content not included)... [facility] 03-27-2023 Evaluation note Encounter Date Diagnosis Assessment Notes Feb, Contact with and (suspected) exposure to covid-19 (ICD-10 - Z20.822) Feb, Viral URI (ICD-10 - J06.9) Advised patient that COVID/Influenza A/B/RSV test and rapid Strep test was negative today. Advised patient that will treat as viral URI. Supportive care as directed, increase fluids and rest, Tylenol as directed, rx of [place], cool mist humidifier, throat lozenges. Discussed infection [...] condition. Feb, Sore throat (ICD-10 - J02.9) [employer] Other 10-15-2022 Evaluation note* Encounter Date Diagnosis [...] understanding and is agreeable with treatment plan [employer] Other 09-30-2022 Evaluation note* Encounter Date Diagnosis [...] no improvement in 2 to 3 days. [employer] Other 09-27-2022 Evaluation note* Encounter Date Diagnosis [...] treatment plan. Patient left in stable condition [employer] Other 07-30-2022 Evaluation note* Encounter Date Diagnosis [...] verbalizes understanding and agrees with treatment plan [employer] Other 05-17-2022 Evaluation note* Encounter Date Diagnosis [...] days July, Hematuria, unspecified (ICD-10 - R31.9) [employer] Other 08-12-2008 History general Narrative - Reported* Type Description Date Medical History PKD found in 1982 when she had a son Medical History hypertension Medical History kidney transplant Surgical History resection of superior cervical mass 11/10/07 Surgical History Teeth extraction in preparation for renal transplant Surgical History portacath placement Surgical History kidney transplant 2014 Hospitalization History see above [employer] Other Evaluation noteNort [employer] Other Evaluation note* Diagnosis Onset Date Resolution Status Thrush, oral acute Sore throat noneactive [facility] Work Phone: Evaluation note* Diagnosis Medicare annual wellness visit, subsequent- Primary ACP (advance care planning) Other specified counseling Acute non-recurrent pansinusitis Acute bronchitis, unspecified organism Primary hypertension ([facility]/HCC) Unspecified essential hypertension PKD (polycystic kidney disease) Congenital polycystic kidney, unspecified type Joint contracture of foot, unspecified laterality Immunosuppression ([facility]) Abnormal complete blood count Other abnormal blood chemistry Current moderate episode of major depressive disorder without prior episode (HCC) ([facility]) Elevated alkaline phosphatase level Estrogen deficiency Other ovarian failure Generalized anxiety disorder (CMS/HCC) Generalized anxiety disorder Hypercholesteremia ([facility]/HCC) Pure hypercholesterolemia Hypomagnesemia Disorders of magnesium metabolism Renal transplant recipient ([facility]) documented in this encounter [facility] - [facility] [employer] Other Summary Purpose Family History Relationship Condition [...] section and content) DATE CREATED AUTHOR 01/30/2018 [facility] DATE CREATED AUTHOR AUTHOR'S ORGANIZ ATION 08/17/2021 [facility] DATE CREATED AUTHOR AUTHOR'S ORGANIZ ATION 08/13/2022 [facility] DATE CREATED AUTHOR AUTHOR'S ORGANIZ ATION 04/02/2024 [facility] DATE CREATED AUTHOR AUTHOR'S ORGANIZ ATION 06/03/2024 [facility] dical Specialists EPIC REASON FOR VISIT (unrecogniz ed section and content) Reason Comments URI Admits sinus pressur e/pain, headaches, nasal congestion, [...] 2023 End: August 30, 2023 Lindsay Soria , DENTAL THERAPIST Attending Provider Active Start: August 30, 2023 End: August 30, 2023 [employer] Relationship Specialty Start Date End Date Ramon Carroll MD [address] [place] [address] PCP - Amy FERREIRA 04/08/21 Ramon Carroll MD [address] [place] [address] PCP - General Internal Medicine 08/06/22 [employer] Relationship Specialty Start Date End Date Ramon Carroll MD [address] [place] [address] PCP - Amy FERREIRA 04/08/21 Ramon Carroll MD [address] [place] [address] PCP - General Internal Medicine 08/06/22 [employer] Relationship Specialty Start Date End Date Ramon Carroll MD [address] [place] [address] PCP - Amy FERREIRA 04/08/21 Ramon Carroll MD [address] [place] [address] PCP - General Internal Medicine 08/06/22 [employer] Relationship Specialty Start Date End Date Ramon Carroll MD [address] [place] [address] PCP - General Internal Medicine 08/06/22 [employer] Relationship Specialty Start Date End Date Ramon Carroll MD [address] [facility] [address] [place] [address] PCP - Amy FERREIRA 04/08/21 Ramon Carroll MD [address] [facility] [address] [place] [address] PCP - General Internal Medicine 08/06/22 [employer] Relationship Specialty Start Date End Date Ramon Carroll MD [address] [facility] [address] [place] [address] PCP Ailyn Reyes MA 04/08/21 Ramon Carroll MD [address] [facility] [address] [place] [address] PCP - General Internal Medicine 08/06/22 Goals [...] BE BASED ON THE PRIMARY CLINICAL RECORDS. [facility] [facility]. provides no warranty or guarantee of the accuracy or completeness of information in this document.
[2024-08-18 07:43] LABS: Basophils Percent Auto 0.2 % (0.2-2.0); Eosinophils Absolute Auto 0.2 10^3/uL (0.0-0.7); Eosinophils Percent Auto 2.9 % (0.9-7.0); Hematocrit 46.8 % (36.0-48.0); Hemoglobin 15.2 g/dL (12.0-16.0); Immature Granulocytes Abs Auto 0.02 10^3/uL (0.00-0.03); Immature Granulocytes Pct Auto 0.3 % (0.0-0.5); Lymphocytes Absolute Auto 1.5 10^3/uL (1.2-3.8); Lymphocytes Percent Auto 21.9 % (20.5-60.0); Mean Corpuscular HGB Conc 32.5 g/dL (29.9-35.2); Mean Corpuscular Hemoglobin 30.5 pg (26.7-34.0); Mean Corpuscular Volume 93.8 fL (81.0-99.0); Mean Platelet Volume 11.7 fL (9.5-13.5); Monocytes Absolute Auto 0.7 10^3/uL (0.3-0.8); Monocytes Percent Auto 10.5 % (1.7-12.0); Neutrophils Absolute Auto 4.3 10^3/uL (1.4-6.5); Neutrophils Percent Auto 64.2 % (43.0-75.0); Platelet Count 200 10^3/uL (150-450); Red Blood Count 4.99 10^6/uL (4.20-5.40); Red Cell Distribution Width 14.8 % (11.0-15.0); White Blood Count 6.7 10^3/uL (4.0-11.0)
[2024-08-18 07:47] LABS: Alanine Aminotransferase 23 U/L (14-59); Albumin Globulin Ratio 1.1; Albumin Level 3.6 g/dL (3.4-5.0); Alkaline Phosphatase 144 U/L (46-116); Anion Gap 11.4; Aspartate Amino Transferase 17 U/L (15-37); BUN Creatinine Ratio 20.2; Bilirubin Direct 0.1 mg/dL (0.0-0.2); Bilirubin Total 0.6 mg/dL (0.2-1.0); Calcium 9.6 mg/dL (8.5-10.1); Carbon Dioxide 29.6 mmol/L (21.0-32.0); Chloride 106 mmol/L (98-107); Chol HDL Ratio 2.3; Cholesterol 116 mg/dL (<=200); Estimated GFR (African America >60 (>=60 mL/min/1.73m^2); Estimated GFR (Non-African Ame >60 (>=60 mL/min/1.73m^2); Globulin 3.2 g/dL; Glucose 95 mg/dL (74-106); HDL Cholesterol 51 mg/dL (40-60); LDL Cholesterol Calculated 46.6 mg/dL; Magnesium 1.8 mg/dL (1.8-2.4); Phosphorus 3.5 mg/dL (2.6-4.7); Sodium 143 mmol/L (136-145); Total Protein 6.8 g/dL (6.4-8.2); Triglycerides 92 mg/dL (<=150); Uric Acid 4.6 mg/dL (2.6-6.0); VLDL CHOLESTEROL 18.4 mg/dL
[2024-08-18 08:29] LABS: Estimated Average Glucose 117 mg/dL; Glycohemoglobin A1C 5.7 % (4.5-6.2)
[2024-08-20 11:09] LABS: BKV DNA, Quant PCR, Plasma Negative (Negative)
[2024-08-21 18:09] LABS: Tacrolimus (FK506), Blood 5.2 ng/mL (5.0-20.0)
== END 2024-08-18 06:40 | disposition home or self-care (01) ==
LOC: LAB 06:41
PROVIDERS: PCP Internal Medicine; Visit Provider Nurse Practitioner Family
DX: R73.01 Impaired fasting glucose (principal); Z94.0 Kidney transplant status
CPT/HCPCS: 36415; 80053; 80061; 80197; 82248; 83036; 83735; 84100; 84550; 85025; 87799

== ENCOUNTER 2024-09-22 06:48 | Outpatient (OUT) | payer MEDICARE, SELFPAY ==
--- OUTSIDE RECORDS SUMMARY | 2024-09-22 06:52 | XMS_ITS ---
Author Organization [facility] Address [address] [place] [address] Care Team Providers Care Paint Specialist Name Role Phone Ramon Carroll MD Primary Care Provider [phone] Virgil Haynes CNP Unavailable [phone] Transplant Episode Kidney Recipient [facility] ([place], [place]) - [facility] Organ Received: Left Kidney Transplanted on 01/21/2013 Marked as Active Follow-up on 01/21/2013 Kidney CoordinatorMeenakshi Turner RN Phone: N/A Fax: N/A Email: N/A [place] Organ Diagnosis Organ Primary Contributory Kidney Polycystic Kidneys Donor Information Organ ABO Source Meets Risk Criteria HLA Match Mismatches Cross Match Left Kidney Transplanted A DBD No A: B: DR: Left Kidney Donor Serology Results Anti-CMV CMV IgG: Negative HBsAg HBsAg: Negative Anti-HBcAb HBC Total: Negative HBsAb No results on file HBV DNA No results on file Anti-HCV HCV: Negative Anti-HIV I/II HIV-1: Negative Anti-HTLV I/II HTLV: Negative RPR/VDRL RPR: Negative EBV IgG EBV VCA IgG: Positive EBV IgM EBV VCA IgM: Negative EBNA No results on file Toxoplasma No results on file SARS CoV-2 No results on file Care Team Name Role Phone Fax Email Meenakshi Turner RN Kidney Coordinator N/A N/A N/ A Britton Raza MD Surgeon N/A [phone] N/A Events Post-Transplant Pre-Transplant Admitted: 01/20/2013 Referred: 12/21/2009 Transplanted: 01/21/2013 Evaluation began: 1 Discharged: 01/26/2013 Center waitlisted: 1 Appointments (08/22/2024 - 10/22/2024) When With Visit Type Description 09/29/2024 Transplant - Minerva Singh U p Appointment
--- OUTSIDE RECORDS SUMMARY | 2024-09-22 06:52 | XMS_ITS | Encounter Summary ---
Author Organization [facility] Address [address] [facility] [place] [address] Care Team Providers Care Business Process Consultant Name Role Phone Ramon Carroll MD Unavailable [phone] Ramon Carroll MD Primary Care Provider [phone] Encounter Details Date Type Department Care Team (Late st Contact Info) Description 09/23/2022 Abstract [facility] [address] [facility] 110 [place] [id number] Ramon Carroll MD [address] [facility] 110 [place] [address] Social History Tobacco Use Types Packs/Day Years Used Date Smoking Tobacco: Never Assessed Comments Unknown Sex and Gender Information Value Date Recorded Sex Assigned at Not on file Legal Sex Female 6:45 PM EDT Gender Identity Not on file Sexual Orientation Not on file documented as of this encounter Plan of Treatment Not on file documented as of this encounter Visit Diagnoses Not on filedocumented in this encounter Care Teams Business Process Consultant Relationship Specialty Start Date End Date Ramon Carroll MD [address] [facility] [address] [place] [address] PCP - Amy FERREIRA 04/08/21 Ramon Carroll MD [address] [facility] [address] [place] [address] PCP - General Internal Medicine 08/06/22 documented as of this encounter
--- OUTSIDE RECORDS SUMMARY | 2024-09-22 06:52 | XMS_ITS | Encounter Summary ---
Author Organization [facility] Address [address] [facility] [place] [address] Care Team Providers Care Warehouse Receiving Supervisor Name Role Phone Ramon Carroll MD Unavailable [phone] Ramon Carroll MD Primary Care Provider [phone] Encounter Details Date Type Department Care Team (Late st Contact Info) Description 10/30/2023 Orders Only [facility] [address] [place] [address] [place] [address] Daniela Chirinos LPN [address] [place] [address] Estrogen deficiency Social History Tobacco Use Types Packs/Day Years Used Date Smoking Tobacco: Never Smokeless Tobacco: Never Alcohol Use Standard Drinks/Week Comments Never 0 (1 standard drink = 0.6 oz pur e alcohol) PHQ-2 Answer Date Recorded Patient Health Questionnaire-2 Score 0 04/02/2023 Comments Unknown Sex and Gender Information Value Date Recorded Sex Assigned at Not on file Legal Sex Female 6:45 PM EDT Gender Identity Not on file Sexual Orientation Not on file documented as of this encounter Plan of Treatment Not on file documented as of this encounter Visit Diagnoses Diagnosis Estrogen deficiency Other ovarian failure documented in this encounter Additional Health Concerns Assessment Noted Time PHQ-9 Depression Total Score: 1 01/31/20 23 8:00 AM EDT documented as of this encounter Care Teams Warehouse Receiving Supervisor Relationship Specialty Start Date End Date Ramon Carroll MD [address] [place] [address] [place] [address] PCP - Amy FERREIRA 04/08/21 Ramon Carroll MD [address] [facility] 110 [place] [address] PCP - General Internal Medicine 08/06/22 documented as of this encounter
--- OUTSIDE RECORDS SUMMARY | 2024-09-22 06:52 | XMS_ITS | Encounter Summary ---
Author Organization [facility] Address [address] [place] [address] Care Team Providers Care Log Yard Manager Name Role Phone Ramon Carroll MD Unavailable [phone] Ramon Carroll MD Primary Care Provider [phone] Encounter Details Date Type Department Care Team (Late st Contact Info) Description 02/11/2024 Clinisync Result Encounter [facility] External Department Unsolicited Ramon Carroll MD [address] [facility] [address] [place] [address] Social History Tobacco Use Types Packs/Day Years [...] on file documented as of this encounter Procedures Procedure Name Priority Date/Time Associated Diagnosis Comments MM TOMOSYNTHESIS SCREENING BI 02/11/2024 9:08 AM EST documented in this encounter Results * MM TOMOSYNTHESIS SCREENING BI (02/11/2024 9:08 AM EST) Anatomical Region Laterality Modality Other 02/11/2024 9:08 AM EST Narrative 02/11/2024 9:09 AM EST [facility] [place] [id number] Mammography Report Signed Patient: TANIKA JENKINS MR#: [id number] : 1955 Acct:[id number] Age/Sex: 68 / F ADM Date: 02/11/24 Loc: MAMMO Attending Dr: RAMON CARROLL Ordering Physician: RAMON CARROLL Results: Date of Service: 02/11/24 Follow Up: Procedure(s): MM tomosynthesis screening BI Accession Number(s): [id number] cc: RAMON CARROLL Patient Name: TANIKA JENKINS MR#: [id number] : 1955 Exam Date: 02/11/2024 Ordering Doctor: DR RAMON CARROLL M.D. RADIOLOGY REPORT PROCEDURE: MM TOMOSYNTHESIS SCREENING BI COMPARISON: MG MAMM SCREEN 3D DAV[place] CAD, 04/02/2021. MG MAMM SCREEN 3D [place] CAD, 07/23/2022. INDICATIONS: Screening for malignant neoplasm Calculator Name NCI Breast Cancer Risk Assessment Tool 5 Year Breast Cancer Risk 1.90% Lifetime Breast Cancer Risk 6.40% Personal Breast Cancer No Personal Ovarian Cancer No Treatments None Family Cancers None LOCATION: The [facility] BREAST COMPOSITION: The breasts are extremely dense, which lowers the sensitivity of mammography. FINDINGS: DIAGNOSTIC CATEGORY 1--NEGATIVE. NO CHANGE FROM COMPARISON ASSESSMENT. Scattered benign-appearing calcifications are present. Scattered benign-appearing lymph nodes are present. RIGHT BREAST: No significant suspicious finding. LEFT BREAST: No significant suspicious finding. RECOMMENDATIONS: ROUTINE MAMMOGRAM AND CLINICAL EVALUATION IN 12 MONTHS. PLEASE NOTE: A NORMAL MAMMOGRAM DOES NOT EXCLUDE THE POSSIBILITY OF BREAST CANCER. A CLINICALLY SUSPICIOUS PALPABLE LUMP SHOULD BE BIOPSIED. Dictated by: Glenroy Bass MD on 02/11/2024 at 09:07 Approved by: Glenroy Bass MD on 02/11/2024 at 09:08 Dictated By: Glenroy Bass M.D. Signed By: 02/11/24908 DD/ 7 TD/TT: Die Fitter: Procedure Note Radiology, Radiologist, - 02/11/2024 [facility] [place] [id number] Mammography Report Signed Patient: TANIKA JENKINS LMR#: [id number] : 1955cct:[id number] Age/Sex: 68 / FADM Date: 02/11/24 Loc: MAMMO Attending Dr: RAMON CARROLL Ordering Physician: RAMON CARROLLResults: Date of Service: 02/11/24Follow Up: Procedure(s): MM tomosynthesis screening BI Accession Number(s): [id number] cc: UZMAOLIVERAMON Patient Name: TANIKA JENKINS MR#: [id number] : 1955 Exam Date: 02/11/2024 Ordering Doctor: DR RAMON CARROLL M.D. RADIOLOGY REPORT PROCEDURE: MM TOMOSYNTHESIS SCREENING BI COMPARISON: MG MAMM SCREEN 3D [place] CAD, 04/02/2021. MG MAMM SCREEN 3DBIL CAD, 07/23/2022. INDICATIONS: Screening for malignant neoplasm Calculator Name NCI Breast Cancer Risk Assessment Tool 5 Year Breast Cancer Risk 1.90% Lifetime Breast Cancer Risk 6.40% Personal Breast Cancer No Personal Ovarian Cancer No Treatments None Family Cancers None LOCATION: The [facility] BREAST COMPOSITION: The breasts are extremely dense, which lowers the sensitivity of mammography. FINDINGS: DIAGNOSTIC CATEGORY 1--NEGATIVE. NO CHANGE FROM COMPARISON ASSESSMENT. Scattered benign-appearing calcifications are present. Scattered benign-appearing lymph nodes are present. RIGHT BREAST: No significant suspicious finding. LEFT BREAST: No significant suspicious finding. RECOMMENDATIONS: ROUTINE MAMMOGRAM AND CLINICAL EVALUATION IN 12 MONTHS. PLEASE NOTE: A NORMAL MAMMOGRAM DOES NOT EXCLUDE THE POSSIBILITY OFBREAST CANCER. A CLINICALLY SUSPICIOUS PALPABLE LUMP SHOULD BE BIOPSIED. Dictated by: Glenroy Bass MD on 02/11/2024 at 09:07 Approved by: Glenroy Bass MD on 02/11/2024 at 09:08 Dictated By: Glenroy Bass M.D. Signed By:02/11/24908 DD/ 7 TD/TT: Die Fitter: Ramon Carroll MD [facility] Final Result documented in this encounter Visit Diagnoses Not on filedocumented in this encounter Additional Health Concerns Assessment Noted Time PHQ-9 Depression Total Score: 1 01/31/20 23 8:00 AM EDT documented as of this encounter Care Teams Log Yard Manager Relationship Specialty Start Date End Date Ramon Carroll MD [address] [facility] [address] [place] [address] PCP - Amy FERREIRA 04/08/21 Ramon Carroll MD [address] [facility] [address] [place] [address] PCP - General Internal Medicine 08/06/22 documented as of this encounter
--- OUTSIDE RECORDS SUMMARY | 2024-09-22 06:52 | XMS_ITS | Clinical Summary ---
Author Organization [employer] Address [id number] [address] [place] [address] Care Team Providers Care Cooperative Education Director Name Role Phone Ramon Carroll MD Primary Care Provider [phone] Allergies No known active allergies Medications magnesium oxide (MAG-OX) 400 mg tablet Take 400 mg by mouth daily. Active tacrolimus (PROGRAF) 1 mg capsule Take 1 mg by mouth every 12 (twelve) hours. Active everolimus, immunosuppressiv e, (ZORTRESS) 0.75 mg tablet Take 0.75 mg by mouth 2 (two) times a day. Active atorvastatin (LIPITOR) 20 mg tablet Take 20 mg by mouth daily. Active amLODIPine (NORVASC) 5 mg tablet Take 5 mg by mouth daily. Active spironolactone (ALDACTONE) 25 mg tablet Take 25 mg by mouth daily. Active Social History Tobacco Use Types Packs/Day Years Used Date Smoking Tobacco: Never Smokeless Tobacco: Never Childcare Answer Date Recorded Childcare Unknown 09/09/2018 Employment Answer Date Recorded Employment Unknown 09/09/2018 Purpose - Life Answer Date Recorded Purpose and direction in life Unknown Comments Unknown Sex and Gender Information Value Date Recorded Sex Assigned at Not on file Legal Sex Female 5:12 PM EDT Gender Identity Not on file Sexual Orientation Not on file Last Filed Vital Signs Vital Sign Reading Time Taken Comments Blood Pressure 145/65 01/25/2018 11:34 AM EDT Pulse 74 01/25/2018 11:34 AM EDT Temperature 36.5 C (97.7 F) 01/25/2018 11:34 AM EDT Respiratory Rate 18 01/25/2018 11:3 4 AM EDT Oxygen Saturation 97% 01/25/2018 11: 34 AM EDT Inhaled Oxygen Concentration - - Weight 51.7 kg (113 lb 15.7 oz) 018 11:34 AM EDT Height 152.4 cm (5') 01/25/2018 11:34 AM EDT Body Mass Index 22.26 01/25/2018 11:34 AM EDT Plan of Treatment Not on file Medical Devices Not on file Insurance [employer] Care Teams Cooperative Education Director Relationship Specialty Start Date End Date Ramon Carroll MD [address] [place] [address] [place] [address] PCP - General Internal Medicine 01/25/18
--- OUTSIDE RECORDS SUMMARY | 2024-09-22 06:52 | XMS_ITS | Referral Summary ---
Author Organization [facility] Address [address] [place] [address] Care Team Providers Care Rn Flight Name Role Phone Ramon Carroll MD Primary Care Provider Virgil Haynes CNP Unavailable [phone] Encounters Date Type Department Care Team Description 09/17/2024 Refill [facility] [address] [place] [id number] Doe Bridges MD History of kidney transplant from Last 3 Months Allergies No known active allergies Medications potassium gluconate 595 mg (99 mg) tablet every 12 (twelve) hours. 01/26/20 14 Active magnesium oxide (Mag-Ox) 400 mg (241.3 mg magnesium) tablet Take 400 mg by mouth in the morning. Active cyanocobalamin (Vitamin B-12) 500 mcg tablet in the morning. 05/31/19 11 Active amoxicillin (Amoxil) 500 mg capsule 1 capsule every 8 (eight) hours. 02/27/20 22 Active omega-3 fatty acids-fish oil (Fish OiL Extra Strength) 435-880 mg capsule 1 capsule 1 (one) time each day at the same time. Active PARoxetine (Paxil) 10 mg tablet Take 10 mg by mouth in the morning. Active baclofen (Lioresal) 10 mg tablet 03/06/20 23 Active tacrolimus (Prograf) 0.5 mg capsuleIndications :History of kidney transplant TAKE 1 CAPSULE BY MOUTH EVERY MORNING AND 1 EVERY NIGHT AT BEDTIME 60 capsule 11 12/16/19 24 Active atorvastatin (Lipitor) 20 mg tabletIndications: Hyperlipidemia, unspecified hyperlipidemia type Take 1 tablet (20 mg) by mouth at bedtime. 90 tablet 3 04/01/19 25 Active spironolactone (Aldactone) 25 mg tabletIndications: Transplanted kidney Take 1 tablet (25 mg) by mouth in the morning. 90 tablet 3 04/01/19 25 Active amLODIPine (Norvasc) 5 mg tabletIndications: Hypertension, unspecified type Take 1 tablet (5 mg) by mouth in the morning. 90 tablet 3 04/01/19 25 Active mycophenolate (Myfortic) 180 mg EC tabletIndications: History of kidney transplant TAKE 4 TABLETS BY MOUTH IN THE MORNING AND AT BEDTIME 240 tablet 4 09/18/19 25 Active mycophenolate (Myfortic) 180 mg EC tabletIndications: History of kidney transplant TAKE 4 TABLETS BY MOUTH IN THE MORNING AND AT BEDTIME 240 tablet 4 03/02/20 24 025 Discontinued Active Problems No known active problems Social History Tobacco Use Types Packs/Day Years Used Date Smoking Tobacco: Never Smokeless Tobacco: Never Tobacco Cessation:Counseling Given: Not Answered Alcohol Use Standard Drinks/Week Comments Never 0 (1 standard drink = 0.6 oz pur e alcohol) PHQ-2 Answer Date Recorded Patient Health Questionnaire-2 Score 0 04/01/2024 [place] Safety & Environment Answer Date Rec orded Fear of Current or Ex-Partner Not on file Emotionally Abused Not on file 05/22/2023 Physically Abused Not on file 05/22/2023 Sexually Abused Not on file 05/22/2023 Physically or Sexually Abused Not on file Comments No Sex and Gender Information Value Date Recorded Sex Assigned at Not on file Legal Sex Female 10:39 PM EDT Gender Identity Not on file Sexual Orientation Not on file Last Filed Vital Signs Vital Sign Reading Time Taken Comments Blood Pressure 142/85 04/01/2024 8:54 AM EST Pulse 56 04/01/2024 8:54 AM EST Temperature 36.4 C (97.5 F) 04/01/2024 8:54 AM EST Respiratory Rate 18 04/01/2024 8:54 AM EST Oxygen Saturation 96% 04/01/2024 8:54 AM EST Inhaled Oxygen Concentration - - Weight 56.7 kg (125 lb) 04/01/2024 8:54 AM EST Height 154.9 cm (5' 1 ) 04/01/2024 8:54 AM EST Body Mass Index 23.62 04/01/2024 8:54 AM EST Plan of Treatment Upcoming Encounters Date Type Department Care Team (Late st Contact Info) Description 09/29/2024 9:00 AM EDT Follow-Up [facility] Transplant [address] [place] [id number] Alfredo Singh, SECURITY CONTROL ASSESSOR [address] [place] [address] Procedures Procedure Name Priority Date/Time Associated Diagnosis Comments EXT CBC Routine 07/16/2024 EXT TACROLIMUS LEVEL Routine 07/16/2024 HEMOGLOBIN A1C Routine 01/19/2022 9:23 AM EDT History of kidney transplant from Last 3 Months or Most Recently Relevant to Health Maintenance Results * External CBC (07/16/2024) External WBC 7.1 External RBC 4.56 External Hematocrit 43 % External Hemoglobin 13.9 g/dL External Platelets 209 K/uL EXT MCV 94.5 fL EXT MCH 30.5 pg EXT MCHC 32.3 g/dL EXT RDW 14.7 % Blood Venous blood specimen / Unknown 07/16/2024 Historical Provider MD [facility] EXTERNAL ORDERS Final Result * External Tacrolimus level (07/16/2024) External Tacrolimus level 4.8 ng/mL Blood Venous blood specimen / Unknown 07/16/2024 Historical Provider MD [facility] EXTERNAL ORDERS Final Result * (ABNORMAL) Hemoglobin A1c (01/19/2022 9:23 AM EDT) Hemoglobin A1C 6.8(H) 4.0 - 6.0 % 01/22/2022 7:07 AM EDT [facility] ([facility] Estimated Average Glucose 148.46 mg/dL 01/22/2022 7:07 AM EDT [facility] ([facility]) Blood Venous blood specimen / Unknown Venipuncture / Unknown 01/19/2022 9:23 AM EDT 01/19/2022 9:23 AM EDT us Doe Bridges MD LAB BLOOD ORDERABLES Final Resul t [facility] ([facility]) [address] [place] [address] from Last 3 Months or Most Recently Relevant to Health Maintenance Insurance [facility] MEDICARE ADVANTAGE [facility] MEDICARE ADVANTAGE Care Teams Rn Flight Relationship Specialty Start Date End Date Ramon Carroll MD [address] [facility] [address] [place] [address] PCP - General 01/19/22 Virgil Haynes, CAROLA [address] [facility] 110 [place] [address] Nurse Practitioner Urology 03/19/22
--- OUTSIDE RECORDS SUMMARY | 2024-09-22 06:52 | XMS_ITS | Encounter Summary ---
Author Organization [facility] Address [address] [place] [address] Care Team Providers Care Tinner Automatic Name Role Phone Ramon Carroll MD Unavailable [phone] Ramon Carroll MD Primary Care Provider [phone] Encounter Details Date Type Department Care Team (Late st Contact Info) Description 06/01/2024 Abstract [facility] 112 [facility] 110 [place] [id number] Ramon Carroll MD [address] [facility] 110 [place] [address] Social History Tobacco Use Types Packs/Day Years Used Date Smoking Tobacco: Never Smokeless Tobacco: Never Alcohol Use Standard Drinks/Week Comments Never 0 (1 standard drink = 0.6 oz pur e alcohol) PHQ-2 Answer Date Recorded Patient Health Questionnaire-2 Score 0 06/01/2024 Comments Unknown Sex and Gender Information Value Date Recorded Sex Assigned at Not on file Legal Sex Female 6:45 PM EDT Gender Identity Not on file Sexual Orientation Not on file documented as of this encounter Functional Status * Over the past 2 weeks, how often have you been bothered by any of the following problems? Question Answer Date of Assessment Author Little interest or pleasure in doing things Not at all 06/01/2024 12:00 PM EST Anushka Weinstein L PN Feeling down, depressed, or hopeless Not at all 06/01/2024 12:00 PM EST Anushka Weinstein L PN Patient Health Questionnaire -2 Score 0 06/01/2024 12:00 PM Anushka Ulloa L PN * Question Answer Date of Assessment Author Trouble falling or staying asleep, or sleeping too much Not at all 06/01/2024 12:00 PM Harika Ulloa LPN Feeling tired or having cuca le energy Not at all 06/01/2024 12:00 PM Anushka Ulloa L PN Poor appetite or overeating Not at all 06/01/2024 12 :00 PM Anushka Ulloa LPN Feeling bad about yourself - or that you are a failure or have let yourself or your family down Not at all 06/01/2024 12:00 PM Anushka Ulloa L PN Trouble concentrating on things, such as reading the newspaper or watching television Not at all 06/01/2024 12:00 PM Anushka Ulloa L PN Moving or speaking so slowly that other people could have noticed? Or the opposite - being so fidgety or restless that you have been moving around a lot more than usual. Not at all 06/01/2024 12:00 PM Anushka Ulloa LPN Thoughts that you would be better off or hurting yourself in some way Not at all 06/01/2024 12:00 PM Anushka Ulloa LPN Patient Health Questionnaire -9 Score 0 06/01/2024 12:00 PM Anushka Ulloa L PN documented as of this encounter Plan of Treatment Not on file documented as of this encounter Visit Diagnoses Not on filedocumented in this encounter Additional Health Concerns Assessment Noted Time PHQ-9 Depression Total Score: 0 06/02/19 25 12:00 PM EST documented as of this encounter Care Teams Tinner Automatic Relationship Specialty Start Date End Date Ramon Carroll MD [address] [facility] 110 [place] [address] PCP - Amy FERREIRA 04/08/21 Ramon Carroll MD [address] [facility] 110 [place] [address] PCP - General Internal Medicine 08/06/22 documented as of this encounter
--- OUTSIDE RECORDS SUMMARY | 2024-09-22 06:52 | XMS_ITS | Encounter Summary ---
Author Organization [facility] Address [address] [facility] [place] [address] Care Team Providers Care Podiatric Assistant Name Role Phone Ramon Carroll MD Unavailable [phone] Ramon Carroll MD Primary Care Provider [phone] Encounter Details Date Type Department Care Team (Late st Contact Info) Description 02/03/2023 Abstract [facility] [address] [facility] 110 [place] [address] Ramon Carroll MD [address] [facility] 110 [place], [place] [id number] Social History Tobacco Use Types Packs/Day Years Used Date Smoking Tobacco: Never Smokeless Tobacco: Never Alcohol Use Standard Drinks/Week Comments Never 0 (1 standard drink = 0.6 oz pur e alcohol) PHQ-2 Answer Date Recorded Patient Health Questionnaire-2 Score 1 01/30/2023 Comments Unknown Sex and Gender Information Value [...] documented as of this encounter Care Teams Podiatric Assistant Relationship Specialty Start Date End Date Ramon Carroll MD [address] [facility] 110 [place], [place] [id number] PCP - Amy FERREIRA 04/08/21 Ramon Carroll MD 112 [facility] 110 [place] [address] PCP - General Internal Medicine 08/06/22 documented as of this encounter
--- OUTSIDE RECORDS SUMMARY | 2024-09-22 06:52 | XMS_ITS | Encounter Summary ---
Author Organization [facility] Address [address] [facility] [place] [address] Care Team Providers Care Mediator Name Role Phone Ramon Carroll MD Unavailable [phone] Ramon Carroll MD Primary Care Provider Encounter Details Date Type Department Care Team (Late st Contact Info) Description 03/28/2023 Abstract [facility] [address] [facility] 110 [place] [address] Ramon Carroll MD [address] [email or web address] 110 [place], [place] [id number] Social History Tobacco Use Types Packs/Day Years [...] documented as of this encounter Care Teams Mediator Relationship Specialty Start Date End Date Ramon Carroll MD [address] [facility] [[email or web address] 110 [place], [place] [id number] PCP - Amy FERREIRA 04/08/21 Ramon Carroll MD 112 [facility] 110 [place] [address] PCP - General Internal Medicine 08/06/22 documented as of this encounter
--- OUTSIDE RECORDS SUMMARY | 2024-09-22 06:52 | XMS_ITS | Clinical Summary ---
Author Organization [facility] Healthcare Address [address] [place] [address] Care Team Providers Care Medical Device Sales Consultant Name Role Phone Ramon Carroll MD Unavailable [phone] Ramon Carroll MD Primary Care Provider [phone] Allergies No known active allergies Medications amLODIPine (Norvasc) 5 MG tablet Take 5 mg by mouth in the morning. 11/26/2022 Active atorvastatin (Lipitor) 20 MG tablet Take 20 mg by mouth in the morning. Active cyanocobalamin (Vitamin B-12) 100 MCG tablet Take 100 mcg by mouth in the morning. Active spironolactone (Aldactone) 25 MG tablet Take 25 mg by mouth in the morning. Active tacrolimus (Prograf) 0.5 MG capsule Take by mouth 2 (two) times a day. 01/24/2023 Active Potassium 99 MG tablet 1 (one) time each day at the same time. Active omega-3 (fish oil) 435 MG capsule 1 capsule 1 (one) time each day at the same time. Active magnesium oxide 400 MG capsule Take by mouth every 12 (twelve) hours. Active mycophenolate (Myfortic) 180 MG EC tablet Take 3 tablets by mouth in the morning and 3 tablets before bedtime. 01/27/2023 Active PARoxetine (Paxil) 20 MG tabletIndicatio ns:Current moderate episode of major depressive disorder without prior episode (HCC) Take 1 tablet (20 mg) by mouth in the morning. 90 tablet 3 03/06/2023 Active Ferrous Fumarate 325 (106 Fe) MG tablet Daily 08/30/2023 Active nystatin (Mycostatin) 728656 UNIT/ML suspensionIndic ations:Thrush, oral SWISH AND SWALLOW 5 MLS ORALLY 4 TIMES A DAY FOR 10 DAYS 60 mL 1 09/02/2023 Active baclofen (Lioresal) 10 MG tabletIndicatio ns:Trapezius muscle spasm Take 1 tablet (10 mg) by mouth 2 (two) times a day as needed for muscle spasms 60 tablet 5 04/19/2024 Active Active Problems Problem Noted Date Diagnosed Date Immunosuppression 06/01/2024 Hypomagnesemia 06/01/2024 Hypercholesteremia 09/02/2023 Hypertension 09/02/2023 PKD (polycystic kidney disease) 09/02/2023 Generalized anxiety disorder 03/06/2023 Current moderate episode of major depressive disorder without prior episode 03/06/2023 Estrogen deficiency 01/30/2023 Joint contracture of foot, unspecified lateralit y 01/29/2023 Elevated alkaline phosphatase level 01/29/2023 Abnormal complete blood count 01/29/2023 Renal transplant recipient 01/29/2023 Resolved Problems Problem Noted Date Diagnosed Date Resolved Date Thrush, oral 09/02/2023 06/01/2024 Parotiditis 01/29/2023 01/30/2023 Sinusitis 01/29/2023 01/30/2023 Encounters Date Type Department Care Team Description 08/18/2024 Clinisync Result Encounter [facility] External Department Unsolicited Provider, Generic External Data 07/16/2024 Clinisync Result Encounter [facility] External Department Unsolicited Provider, Generic External Data from Last 3 Months Immunizations Immunization Administration Dates Next Due Influenza, Injectable, MDCK, preservative free 02/19/2024 Influenza, Seasonal, Quadriv alent, Adjuvanted 01/10/2023 Influenza, injectable, MDCK, preservative free, quadrivalent 02/19/2022 Influenza, injectable, quadrivalent 12/26/2018,1 Influenza, injectable, quadr ivalent, preservative free 12/12/2019,12/29/2017,12/20/2016,2014 Influenza, seasonal, injectable 01/09/2021 Influenza, seasonal, intrade rmal, preservative free 12/02/2016 SARS-COV-2 (COVID-19) vaccin e, mRNA, spike protein, LNP, bivalent, PF 02/19/2022 Zoster, Recombinant 09/16/2022,07/22/2022 Family History Medical History Relation Name Comments Kidney failure Brother Hypertension Father Diabetes Mother Heart disease Mother Hypertension Mother Relation Name Status Comments Brother Alive Father Mother Social History Tobacco Use Types Packs/Day Years [...] Sign Reading Time Taken Comments Blood Pressure 112/74 06/01/2024 1:05 PM EST Pulse 69 06/01/2024 1:05 PM EST Temperature 36.8 C (98.3 F) 06/01/2024 1:05 PM EST Respiratory Rate 16 06/01/2024 1:05 PM EST Oxygen Saturation 95% 06/01/2024 1:05 PM EST Inhaled Oxygen Concentration - - Weight 57.2 kg (126 lb 3.2 oz) 06/01/2024 1:05 P M EST Height 152.4 cm (5') 06/01/2024 1:05 PM EST Body Mass Index 24.65 06/01/2024 1:05 PM EST Plan of Treatment Health Maintenance Due Date Last Done Comments CT Colonography 1955 FIT 1955 FOBT 1955 Sigmoidoscopy 1955 Pneumococcal Vaccine: 65+ Ye ars (1 of 2 - PCV) 11/12/1975 Mammogram 02/10/2025 02/11/2024, 04/2 07/2022, 04/02/2021, Additional history exists Medicare Annual Wellness (AWV) 06/01/2025 0 06/01/2024, 04/02/2023, 01/30/2023 FIT-DNA 02/14/2026 02/14/2023 Colonoscopy 07/29/2027 07/28/2017 Colorectal Cancer Screening 07/29/2027 Influenza Vaccine Completed 02/19/2024, , 02/19/2022, Additional history exists Procedures Procedure Name Priority Date/Time Associated Diagnosis Comments TACROLIMUS (FK506), BLOOD Routine 08/18/2024 6:55 AM EDT BKV QUANT PCR Routine 08/18/2024 6:55 AM EDT MLR HEMOGLOBIN A1C Routine 08/18/2024 6: 55 AM EDT METRO BILIRUBIN, DIRECT Routine 08/18/2024 6:55 AM EDT ALL MAGNESIUM Routine 08/18/2024 6:55 AM EDT ALL PHOSPHOROUS Routine 08/18/2024 6:55 AM EDT ALL URIC ACID Routine 08/18/2024 6:55 AM EDT [facility] CMP (CMP) (FOR REMOTE COMMUNITY HEALTH USE) Routine 08/18/2024 6:55 AM EDT ALL LIPID PROFILE (FASTING) Routine 08/18/2024 6:55 AM EDT ALL CBC WITH AUTO DIFF Routine 5 6:55 AM EDT ALL MISCELLANEOUS TEST Routine 5 7:05 AM EDT METRO BILIRUBIN, DIRECT Routine 07/16/2024 7:05 AM EDT ALL MAGNESIUM Routine 07/16/2024 7:05 AM EDT ALL PHOSPHOROUS Routine 07/16/2024 7:05 AM EDT ALL URIC ACID Routine 07/16/2024 7:05 AM EDT [facility] CMP (CMP) (FOR REMOTE COMMUNITY HEALTH USE) Routine 07/16/2024 7:05 AM EDT ALL CBC WITH AUTO DIFF Routine 7:05 AM EDT MM TOMOSYNTHESIS SCREENING BI 02/11/2024 9:08 AM EST LAB COLOGUARD COLON CANCER SCREEN Routine 02/14/2023 1:15 PM EST Screening for colorectal cancer from Last 3 Months or Most Recently Relevant to Health Maintenance Results * BKV QUANT PCR (08/18/2024 6:55 AM EDT) Pathologist [facility] BKV DNA, QUANT PCR, PLASMA Negative Negative IU/mL [facility] Comment: No BK DNA detected. The linear range of the assay is 22 - 100,000,000 IU/mL. Performed at: [address] [id number] Remote Sensing Specialist: Marizol Singleton MD, Phone: [phone] LOG10 BKV DNA,PLASMA TNP . [facility] 08/18/2024 6:55 AM EDT 08/18/2024 6:58 AM EDT Narrative CLINISYNC - 08/20/2024 11:09 AM EDT us Generic External Data Provider LAB BLOOD ORDERAB LES Final Result [facility] * TACROLIMUS (FK506), BLOOD (08/18/2024 6:55 AM EDT) Pathologist [facility] TACROLIMUS (FK506), BLOOD 5.2 5.0 - 20.0 ng/mL [facility] Comment: This test was developed and its performance characteristics determined by [facility]. It has not been cleared or approved by the Food and Drug Administration. Target steady state trough concentration for Tacrolimus varies based on type of organ transplant immunosuppressive protocol and other patient specific factors. Tacrolimus trough concentrations should be interpreted in conjunction with clinical assessments of rejection and tolerability. Values obtained with different assay methods cannot be used interchangeably due to differences in assay methods and cross-reactivty with metabolites, nor should correction factors be applied. Therefore, consistent use of one assay for individual patients is recommended. Detection Limit = 0.5 ng/mL Performed by LC-MS/MS technology. Performed at: - [address] [id number] Remote Sensing Specialist: Marizol Singleton MD, Phone: [phone] 08/18/2024 6:55 AM EDT 08/18/2024 6:58 AM EDT Narrative CLINISYNC - 08/21/2024 6:09 PM EDT Generic External Data Provider LAB BLOOD ORDERAB LES Final Result [facility] * MLR HEMOGLOBIN A1C (08/18/2024 6:55 AM EDT) GLYCOHEMOGLOBIN A1C 5.7 4.5 - 6.2 % [facility] Comment: ADA RECOMMENDED LIMIT 4.0 - 6.0 ADA THERAPEUTIC TARGET < 7.0 ACTION SUGGESTED > 7.0 ESTIMATED AVERAGE GLUCOSE 117 mg/dL TB 08/18/2024 6:55 AM EDT 08/18/2024 6:58 AM EDT Narrative CLINISYNC - 08/18/2024 8:31 AM EDT Generic External Data Provider CLINISYNC F inal Result Performing Organization Address [facility] de Phone Number [facility] * METRO BILIRUBIN, DIRECT (08/18/2024 6:55 AM EDT) Only the most recent of2 resultswithin the time period is included. BILIRUBIN DIRECT 0.1 0.0 - 0.2 mg/dL TB 08/18/2024 6:55 AM EDT 08/18/2024 6:58 AM EDT Narrative CLINISYNC - 08/18/2024 7:50 AM EDT Generic External Data Provider CLINISYNC F inal Result Performing Organization Address [facility] Co de Phone Number [facility] * (ABNORMAL) [facility] CMP (CMP) (FOR REMOTE COMMUNITY HEALTH USE) (08/18/2024 6:55 AM EDT) Only the most recent of2 resultswithin the time period is included. SODIUM 143 136 - 145 mmol/L [facility] POTASSIUM 4.0 3.5 - 5.1 mmol/L [facility] CHLORIDE 106 98 - 107 mmol/L TBH CARBON DIOXIDE 29.6 21.0 - 32.0 mmol/L TBH ANION GAP 11.4 TBH GLUCOSE 95 74 - 106 mg/dL TBH BLOOD UREA NITROGEN 17.0 7.0 - 18.0 mg/dL TBH CREATININE 0.84 0.55 - 1.02 mg/dL TBH TBH EGFR-AF CUBAN >60 >=60 mL/min/1. 73m 2 TBH TBH EGFR-NON AF CUBAN >60 >=60 mL/min/1. 73m 2 TBH BUN CREATININE RATIO 20.2 TBH CALCIUM 9.6 8.5 - 10.1 mg/dL TBH BILIRUBIN TOTAL 0.6 0.2 - 1.0 mg/dL TBH ASPARTATE AMINO TRANSFERASE 17 15 - 37 U/L TBH ALANINE AMINOTRANSFERASE 23 14 - 59 U/L TBH ALKALINE PHOSPHATASE 144(H) 46 - 116 U/L TBH TOTAL PROTEIN 6.8 6.4 - 8.2 g/dL TBH ALBUMIN LEVEL 3.6 3.4 - 5.0 g/dL TBH GLOBULIN 3.2 g/dL TBH ALBUMIN GLOBULIN RATIO 1.1 TBH 08/18/2024 6:55 AM EDT 08/18/2024 6:58 AM EDT Narrative CLINISYNC - 08/18/2024 7:50 AM EDT us Generic External Data Provider CLINISYNC F inal Result [facility] * ALL URIC ACID (08/18/2024 6:55 AM EDT) Only the most recent of2 resultswithin the time period is included. URIC ACID 4.6 2.6 - 6.0 mg/dL TB[facility] 08/18/2024 6:55 AM EDT 08/18/2024 6:58 AM EDT Narrative CLINISYNC - 08/18/2024 7:50 AM EDT Generic External Data Provider CLINISYNC F inal Result Performing Organization Address [facility] de Phone Number [facility] * ALL PHOSPHOROUS (08/18/2024 6:55 AM EDT) Only the most recent of2 resultswithin the time period is included. PHOSPHORUS 3.5 2.6 - 4.7 mg/dL TBH 08/18/2024 6:55 AM EDT 08/18/2024 6:58 AM EDT Narrative CLINISYNC - 08/18/2024 7:50 AM EDT Generic External Data Provider CLINISYNC F inal Result Performing Organization Address [facility] de Phone Number [facility] * ALL MAGNESIUM (08/18/2024 6:55 AM EDT) Only the most recent of2 resultswithin the time period is included. MAGNESIUM 1.8 1.8 - 2.4 mg/dL [facility] 08/18/2024 6:55 AM EDT 08/18/2024 6:58 AM EDT Narrative CLINISYNC - 08/18/2024 7:50 AM EDT Generic External Data Provider CLINISYNC F inal Result Performing Organization Address [facility] de Phone Number [facility] * ALL LIPID PROFILE (FASTING) (08/18/2024 6:55 AM EDT) TRIGLYCERIDES 92 <=150 mg/dL TB[facility] CHOLESTEROL 116 <=200 mg/dL TBH HDL CHOLESTEROL 51 40 - 60 mg/dL [facility] Comment: > or =60 mg/dl - LOW CARDIOVASCULAR RISK <40 mg/dl - HIGH CARDIOVASCULAR RISK LDL CHOLESTEROL CALCULATED 46.6 mg/dL TB Comment: <100 mg/dl OPTIMAL 100-129 mg/dl NEAR OR ABOVE OPTIMAL 130-159 mg/dl BORDERLINE HIGH 160-189 mg/dl HIGH >190 mg/dl VERY HIGH VLDL CHOLESTEROL 18.4 mg/dL TB CHOL HDL RATIO 2.3 TB Comment: 3.3 - 4.4 LOW RISK 4.4 - 7.1 AVERAGE RISK 7.1 - 11.0 MODERATE RISK >11.0 HIGH RISK 08/18/2024 6:55 AM EDT 08/18/2024 6:58 AM EDT Narrative CLINISYNC - 08/18/2024 7:49 AM EDT us Generic External Data Provider CLINISYNC F inal Result [facility]NC [facility] * ALL CBC WITH AUTO DIFF (08/18/2024 6:55 AM EDT) Only the most recent of2 resultswithin the time period is included. TB WBC 6.7 4.0 - 11.0 10 3/uL TBH TB RBC 4.99 4.20 - 5.40 10 6/uL TBH TB HGB 15.2 12.0 - 16.0 g/dL TB TB HCT 46.8 36.0 - 48.0 % TB TB MCV 93.8 81.0 - 99.0 fL TB TB MCH 30.5 26.7 - 34.0 pg TBH TB MCHC 32.5 29.9 - 35.2 g/dL TB TB RDW 14.8 11.0 - 15.0 % TBH TBH PLT 200 150 - 450 10 3/uL TB TB MPV 11.7 9.5 - 13.5 fL TBH NEUTROPHILS PERCENT AUTO 64.2 43.0 - 75.0 % TBH LYMPHOCYTES PERCENT AUTO 21.9 20.5 - 60.0 % TBH MONOCYTES PERCENT AUTO 10.5 1.7 - 12.0 % TBH TBH EO % 2.9 0.9 - 7.0 % TBH BASOPHILS PERCENT AUTO 0.2 0.2 - 2.0 % TBH IMMATURE GRANULOCYTES PCT AUTO 0.3 0.0 - 0.5 % TBH NEUTROPHILS ABSOLUTE AUTO 4.3 1.4 - 6.5 10 3/uL TBH LYMPHOCYTES ABSOLUTE AUTO 1.5 1.2 - 3.8 10 3/uL TBH MONOCYTES ABSOLUTE AUTO 0.7 0.3 - 0.8 10 3/uL TBH TBH EO # 0.2 0.0 - 0.7 10 3/uL TBH BASOPHILS ABSOLUTE AUTO 0.0 0.0 - 0.1 10 3/uL TBH IMMATURE GRANULOCYTES ABS AUTO 0.02 0.00 - 0.03 10 3/uL TBH 08/18/2024 6:55 AM EDT 08/18/2024 6:58 AM EDT Narrative CLINISYNC - 08/18/2024 7:45 AM EDT us Generic External Data Provider CLINISYNC F inal Result [facility] * ALL MISCELLANEOUS TEST (07/16/2024 7:05 AM EDT) Pathologist [facility] MISCELLANEOUS TEST COMMENT . [facility] Comment: Test Ordered: [id number] Tacrolimus Rebaseline, IA Tacrolimus by Immunoassay 4.8 [L ] ng/mL Reference Range: 5.0-20.0 Detection Limit = 0.8 ng/mL Target steady state trough concentration for Tacrolimus varies based on type of organ transplant immunosuppressive protocol and other patient specific factors. Tacrolimus trough concentrations should be interpreted in conjunction with clinical assessments of rejection and tolerability. Values obtained with different assay methods cannot be used interchangeably due to differences in assay methods and cross-reactivity with metabolites, nor should correction factors be applied. Therefore, consistent use of one assay for individual patients is recommended. Tacrolimus assay performed by Molly Immunoassay. Please note reference interval change [facility] will offer rebaseline testing (Test No. [id number]) through July 28, 2024. The rebaseline test will include results from both the current method ([employer]) and the new method (Molly). All test results indicate the television actor of the test on the laboratory report. The rebaseline test for tacrolimus immunoassay is charged at the [facility] for the new test; the test for the retiring method is performed at no additional charge. Tacrolimus IA by Thermo 7.3 ng/mL CB Reference Range: . Performed at: [address] [id number] Remote Sensing Specialist: Real Chaparro PhD, Phone: [phone] 07/16/2024 7:05 AM EDT 07/16/2024 7:08 AM EDT Narrative RUIZ - 07/17/2024 1:24 PM EDT [id number] TACROLIMUS REBASELINE IMMUNOASSAY us Generic External Data Provider CLINISYNC F inal Result [facility] * MM TOMOSYNTHESIS SCREENING BI (02/11/2024 9:08 AM EST) Anatomical Region Laterality Modality Other 02/11/2024 9:08 AM EST Narrative 02/11/2024 9:09 [place] [address] Mammography Report Signed Patient: TANIKA JENKINS MR#: [id number] : 1955 Acct:[id number] Age/Sex: 68 / F ADM Date: 02/11/24 Loc: MAMMO Attending Dr: RAMON CARROLL Ordering Physician: RAMON CARROLL Results: Date of Service: 02/11/24 Follow Up: Procedure(s): MM tomosynthesis screening BI Accession Number(s): [id number] cc: RAMON CARROLL Patient Name: TANIKA JENKINS MR#: [id number] : 1955 Exam Date: 02/11/2024 Ordering Doctor: [...] None Family Cancers None LOCATION: [facility] BREAST COMPOSITION: The breasts are extremely dense, [...] M.D. Signed By: 02/11/24908 DD/ 7 TD/TT: Cloth Winder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: Procedure Note Radiology, Radiologist, MD - 02/11/2024 [place] [address] Mammography Report Signed Patient: TANIKA JENKINS LMR#: [id number] : 7Acct:[id number] Age/Sex: 68 / FADM Date: 02/11/24 Loc: MAMMO Attending Dr: RAMON CARROLL Ordering Physician: RAMON CARROLLResults: Date of Service: 02/11/24Follow Up: Procedure(s): MM tomosynthesis screening BI Accession Number(s): [id number] cc: RAMON CARROLL Patient Name: TANIKA JENKINS MR#: [id number] : 1955 Exam Date: 02/11/2024 Ordering Doctor: [...] None Family Cancers None LOCATION: [facility] BREAST COMPOSITION: The breasts are extremely dense, [...] Bass M.D. Signed By:02/11/24908 DD/ 7 TD/TT: Cloth Winder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: Ramon Carroll MD [facility]AG[facility] Final Result * Cologuard?? colon cancer screening (02/14/2023 1:15 PM EST) NONINV COLON CA DNA+OCC BLD SCRN STL-IMP Negative Negative 02/24/2023 5:35 PM EST [facility] (CLIA #:[id number]) Comment: NEGATIVE TEST RESULT. A negative Cologuard result indicates a low likelihood that a colorectal cancer (CRC) or advanced adenoma (adenomatous polyps with more advanced pre-malignant features) is present. The chance that a person with a negative Cologuard test has a colorectal cancer is less than 1 in 1500 (negative predictive value >99.9%) or has an advanced adenoma is less than 5.3% (negative predictive value 94.7%). These data are based on a prospective cross-sectional study of 10,000 individuals at average risk for colorectal cancer who were screened with both Cologuard and colonoscopy. (Jhon Sun. et al, N Engl J Med 2014;370(14):0251-6245) The normal value (reference range) for this assay is negative. COLOGUARD RE-SCREENING RECOMMENDATION: Periodic colorectal cancer screening is an important part of preventive healthcare for asymptomatic individuals at average risk for colorectal cancer. Following a negative Cologuard result, the [place] Cancer Society and U.S. Multi-Society Task Force screening guidelines recommend a Cologuard re-screening interval of 3 years. References: [place] Cancer Society Guideline for Colorectal Cancer Screening: https://www.cancer.org/cancer/huuwf-zdusah-cchpjl/pxkveekmw-znlwxhhcn-lwbezhs/ac s-rec ommendations.html.; Vinnie COPELAND, David ABREU, Robert ReisK, Colorectal Cancer Screening: Recommendations for Physicians and Patients from the U.S. Multi-Society Task Force on Colorectal Cancer Screening , Am J Gastroenterology 2017; 112:8487-7205. TEST DESCRIPTION: Composite algorithmic analysis of stool DNA-biomarkers with hemoglobin immunoassay. Quantitative values of individual biomarkers are not reportable and are not associated with individual biomarker result reference ranges. Cologuard is intended for colorectal cancer screening of adults of either sex, 45 years or older, who are at average-risk for colorectal cancer (CRC). Cologuard has been approved for use by the U.S. FDA. The performance of Cologuard was established in a cross sectional study of average-risk adults aged 50-84. Cologuard performance in patients ages 45 to 49 years was estimated by sub-group analysis of near-age groups. Colonoscopies performed for a positive result may find as the most clinically significant lesion: colorectal cancer [4.0%], advanced adenoma (including sessile serrated polyps greater than or equal to 1cm diameter) [20%] or non- advanced adenoma [31%]; or no colorectal neoplasia [45%]. These estimates are derived from a prospective cross-sectional screening study of 10,000 individuals at average risk for colorectal cancer who were screened with both Cologuard and colonoscopy. (Jhon Mackenzie et al, N Engl J Med 2014;370(14):6392-6087.) Cologuard may produce a false negative or false positive result (no colorectal cancer or precancerous polyp present at colonoscopy follow up). A negative Cologuard test result does not guarantee the absence of CRC or advanced adenoma (pre-cancer). The current Cologuard screening interval is every 3 years. ([place] Cancer Society and U.S. Multi-Society Task Force). Cologuard performance data in a 10,000 patient pivotal study using colonoscopy as the reference method can be accessed at the following location: www.Play Meg[employer].fromAtoB/results. Additional description of the Cologuard test process, warnings and precautions can be found at [email or web address] MROrd.com. Stool specimen (specimen) 02/14/2023 1:15 PM EST 02/15/2023 5:51 PM EST Ramon Carroll MD LAB MOLECULAR DIAGNOSTICS [facility] Final Result .[facility] (CLIA #:[id number]) [address] [place] [id number], [facility] (CLIA #:[id number]) [address] [place] [phone] from Last 3 Months or Most Recently Relevant to Health Maintenance Insurance [employer] Care Teams Medical Device Sales Consultant Relationship Specialty Start Date End Date Ramon Carroll MD [address] [facility] [address] [place] [address] PCP - Amy FERREIRA 04/08/21 Ramon Carroll MD [address] [facility] [address] [place] [address] PCP - General Internal Medicine 08/06/22
--- OUTSIDE RECORDS SUMMARY | 2024-09-22 06:52 | XMS_ITS | Encounter Summary ---
Author Organization [facility] Address [address] [facility] [place] [address] Care Team Providers Care Housekeeping Department Worker Name Role Phone Ramon Carroll MD Unavailable [phone] Ramon Carroll MD Primary Care Provider [phone] Encounter Details Date Type Department Care Team (Late st Contact Info) Description 04/09/2023 Abstract [facility] [address] [facility] [address] [place] [id number] Ramon Carroll MD [address] [facility] [address] [place], [place] [id number] Social History Tobacco Use Types Packs/Day Years [...] documented as of this encounter Care Teams Housekeeping Department Worker Relationship Specialty Start Date End Date Ramon Carroll MD [address] [facility] [address] [place], [place] [id number] PCP - Amy FERREIRA 04/08/21 Ramon Carroll MD [address] [facility] [address] [place] [address] PCP - General Internal Medicine 08/06/22 documented as of this encounter
--- OUTSIDE RECORDS SUMMARY | 2024-09-22 06:53 | XMS_ITS | Encounter Summary ---
Author Organization [facility] Address [address] [place] [address] Care Team Providers Care Personnel Generalist Manager Name Role Phone Ramon Carroll MD Primary Care Provider [phone] Virgil Haynes CNP Unavailable [phone] Reason for Visit * Reason Comments Med Refill Encounter Details Date Type Department Care Team (Late st Contact Info) Description 09/17/2024 Refill [facility] [address] [place] [address] Doe Bridges MD [address] [facility] [place] [address] History of kidney transplant Social History Tobacco Use Types Packs/Day Years Used Date Smoking Tobacco: Never Smokeless Tobacco: Never Alcohol Use Standard Drinks/Week Comments Never 0 (1 standard drink = 0.6 oz pur e alcohol) PHQ-2 Answer Date Recorded Patient Health Questionnaire-2 Score 0 04/01/2024 [place] Safety & Environment Answer Date Rec orded [...] as of this encounter Plan of Treatment Upcoming Encounters Date Type Department Care Team (Late st Contact Info) Description 09/29/2024 9:00 AM EDT Follow-Up [facility] Transplant [address] [place] [phone] Alfredo Singh CNP [address] [place] [address] documented as of this encounter Visit Diagnoses Diagnosis History of kidney transplant Kidney replaced by transplant documented in this encounter Care Teams Personnel Generalist Manager Relationship Specialty Start Date End Date Ramon Carroll MD [address] [facility] [address] [place] [address] PCP - General 01/19/22 Virgil Haynes CNP [address] [facility] [address] [place] [address] Nurse Practitioner Urology 03/19/22 documented as of this encounter
--- OUTSIDE RECORDS SUMMARY | 2024-09-22 06:53 | XMS_ITS | Encounter Summary ---
Author Organization [facility] Address [address] [place] [address] Care Team Providers Care Step Down Nurse Name Role Phone Ramon Carroll MD Primary Care Provider [phone] Virgil Haynes CNP Unavailable [phone] Reason for Visit * Reason Comments Med Refill Encounter Details Date Type Department Care Team (Late st Contact Info) Description 01/20/2023 Refill [facility] [address] [facility] [address] [place] [address] Anthony Kunz MD [address] [place] [address] History of kidney transplant Social History Tobacco Use Types Packs/Day Years Used Date Smoking Tobacco: Never Smokeless Tobacco: Never Alcohol Use Standard Drinks/Week Comments Never 0 (1 standard drink = 0.6 oz pur e alcohol) PHQ-2 Answer Date Recorded Patient Health Questionnaire-2 Score 2 09/17/2022 Comments Unknown Sex and Gender Information Value Date Recorded Sex Assigned at Not on file Legal Sex Female 10:39 PM EDT Gender Identity Not on file Sexual Orientation Not on file documented as of this encounter Plan of Treatment Upcoming Encounters Date Type Department Care Team (Late st Contact Info) Description 09/29/2024 9:00 AM EDT Follow-Up [facility] Transplant [address] [place] [address] Alfredo Singh CNP [address] [place], [place] [id number] documented as of this encounter Visit Diagnoses Diagnosis History of kidney transplant Kidney replaced by transplant documented in this encounter Care Teams Step Down Nurse Relationship Specialty Start Date End Date Ramon Carroll MD [address] [facility] [address] [place] [address] PCP - General 01/19/22 Virgil Haynes, [place] [address] [facility] [address] [place] [address] Nurse Practitioner Urology 03/19/22 documented as of this encounter
--- OUTSIDE RECORDS SUMMARY | 2024-09-22 06:53 | XMS_ITS | CCD ---
Author Organization [facility] Care Team Providers Care Filter Tip Inspector Name Role Phone VENETIE IRA, DINKAR Unavailable Unavailable VENETIE IRA, DINKAR Unavailable Unavailable CARROLL, RAMON Unavailable Unavailable [...] Unavailable NADERER, DR VIRGIL Palma Admitting Unavailable MRAY, VITO Consulting Unavailable WARD, JOSE F Townsend [...] Attending Unavailable MISC, DR OBRIEN Admitting Unavailable VENETIE IRA, DR CONNORS Consulting Unavailable CARROLL, DR DARBY Primary Care Unavailable MISC, DR OBRIEN Attending Unavailable MISC, DR OBRIEN Admitting Unavailable MISC, DR OBRIEN Attending Unavailable MISC, DR OBRIEN Admitting Unavailable MISC, DR OBRIEN Consulting Unavailable CARROLL, DR DARBY Primary Care Unavailable VENETIE IRA, DR CONNORS Consulting Unavailable VENETIE IRA, DR CONNORS Attending Unavailable CARROLL, DR DARBY Primary Care Unavailable VENETIE IRA, DR CONNORS Admitting Unavailable VENETIE IRA, DR CONNORS Attending Unavailable CARROLL, DR DARBY Primary Care Unavailable VENETIE IRA, DR CONNORS Admitting Unavailable VENETIE IRA, DR CONNORS Consulting Unavailable MISC, DR OBRIEN [...] Unavailable CARROLL, DR DARBY Primary Care Unavailable VENETIE IRA, DR CONNORS Consulting Unavailable VENETIE IRA, DR CONNORS Attending Unavailable CARROLL, DR DARBY Primary Care Unavailable VENETIE IRA, DR CONNORS Admitting Unavailable MISC, DOCTOR Attending Unavailable MISC, DR OBRIEN Admitting Unavailable MISC, DR OBRIEN Consulting Unavailable CARROLL, DR DARBY Primary Care Unavailable MISC, DOCTOR Attending Unavailable MISC, DR OBRIEN Admitting Unavailable MISC, DR OBRIEN Consulting Unavailable CARROLL, DR DARBY Primary Care Unavailable VENETIE IRA, DR CONNORS Consulting Unavailable VENETIE IRA, DR CONNORS Attending Unavailable DR DOE BRIDGES Admitting Unavailable DR RAMON CARROLL Primary Care Unavailable Ramon Carroll MD Unavailable Ramon Carroll MD Primary Care Provider VIRGIL HAYNES Attending Unavailable ASHLI CARTER Attending Unavailable ESTER PADILLA Attending Unavailable ESTER PADILLA Attending Unavailable Medications Current Medications Medication Drug Class(es) Dates Sig (Normalized) Sig (Original) [id number] 200 actuat albuterol 0.09 mg/actuat metered dose [...] 06/08/2024 Active atorvastatin 20 mg oral tablet (12 sources) HMG-CoA Reductase Inhibitor Start: 08-30-2023 take 20 mg by mouth once daily at bedtime Atorvastatin Active 20 MG PO Daily at bedtime August 30, 2023 12:00am baclofen 10 mg oral tablet (11 sources) gamma-Aminobutyric Acid-ergic Agonist Start: 03-06-2023 take [...] 1.5 mg/ml oral solution (1 source) Uncompetitive P-[id number]-T-asparta te Receptor Antagonist, Sigma-1 Agonist Start: 03-27-2023 take 10 mL by mouth every eight hours Burdine DM 7.5-7.5 MG/5ML 10 mL Orally every 8 hours for 5 days Feb, Active ergocalciferol 1.25 mg oral capsule (9 sources) Provitamin D2 Compound Start: 06-27-2011 take 1 capsule by mouth every week Vitamin D (Ergocalciferol) [id number] UNIT 1 capsule Orally Once a Week for 90 days May, Active Start: 06-27-2011 everolimus (6 sources) Kinase Inhibitor, mTOR Inhibitor Immunosuppressant Zortress Active ferrous fumarate 325 mg oral tablet (12 sources) Start: Ferrous Fumarate 325 (106 Fe) [...] day for 30 day(s) Active Fish Oils (20 sources) omega-3 (fish oi l) 435 MG [...] 12:00am magnesium oxide 400 mg oral capsule (20 sources) magnesium oxide 400 MG capsule Take [...] acid 180 mg delayed release oral tablet (11 sources) Antimetabolite Immunosuppressant Start: 01-27-2023 take 3 tablets by mouth in the morning mycophenolate (Myfortic) 180 MG EC tablet Take 3 tablets by mouth in the morning and 3 tablets before bedtime. 01/27/2023 Active nystatin [id number] unt/ml oral suspension (12 sources) Polyene Antifungal Start: 09-02-2023 take 5 mL by mouth four times daily nystatin (Mycostatin) [id number] UNIT/ML suspension Indications: Thrush, oral SWISH AND SWALLOW 5 MLS ORALLY 4 TIMES A DAY FOR 10 DAYS 60 mL 1 09/02/2023 Active Start: 08-30-2023 take 1 mL by mouth f our times daily Nystatin Active 5 ML PO Four times daily 200 10 August 30, 2023 12:00am swish and swallow [place] 1-Mvy-Rkk-Fish Oil (Fish Oil) 1,000 mg (120 mg-180 mg) capsule (1 source) Start: 08-30-2023 take 1 capsule by mouth once daily [place] 8-Brn-Bye-Fish Oil (Fish Oil) 1,000 mg (120 mg-180 mg) capsule Active 1 CAP PO Daily August 30, 2023 12:00am PARoxetine hydrochloride 20 mg oral tablet (12 sources) Serotonin Reuptake Inhibitor Start: 08-30-2023 Paroxetine [...] day for 2 day(s) July, Active Potassium (20 sources) Potassium 99 MG tablet 1 (one) [...] day for 30 day(s) Active vitamin B12 (14 sources) Vitamin B12 Start: 08-30-2023 take 1 [...] [Other specified counseling] 06-01-2024 Episodic Anxiety disorders (16 sources) Mixed anxiety and depressive disorder; Translations: [...] Onset: 5 Episodic Disorders of lipid metabolism (17 sources) Hyperlipidemia, unspecified; Translations: [Hypercholesterolemia] Onset: 2 08-30-2023 Chronic Essential hypertension (20 sources) Hypertensive disorder; Translations: [HTN] Onset: 2 08-30-2023 Chronic Fluid and electrolyte disorders (3 sources) Hyperosmolality and or hypernatremia; Translations: [Hyperosmolality and/or hypernatremia] Episodic Genitourinary congenital anomalies (17 sources) Multiple congenital cysts of kidney; Translations: [Polycystic kidney, unspecified type] Onset: 4 08-30-2023 Chronic Immunity disorders (7 sources) Immunosuppression; Translations: [Immunodeficiency, unspecified] Onset: 5 06-01-2024 Chronic Immunizations and screening for infectious disease (6 sources) Contact with and (suspected) exposure to other viral communicable diseases; Translations: [Contact with and (suspected) exposure to other viral communicable diseases] Episodic Menopausal disorders (13 sources) Decreased estrogen level; 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-2023 Chronic Mood disorders (13 sources) Moderate major depression, single episode; Translations: [Major depressive disorder, single episode, moderate] Onset: 3 03-06-2023 Chronic Other acquired deformities (13 sources) Contracture of joint of foot; Translations: [...] Chronic Other nutritional; endocrine; and metabolic disorders (7 sources) Hypomagnesemia; Translations: [Hypomagnesemia] Onset: 5 06-01-2024 [...] te Episodic/Chronic Diseases of mouth; excluding dental (12 sources) Other lesions of oral mucosa; Translations: [Parotitis] Onset: 01-29-2023 Resolved: 01-30-2023 Episodic Genitourinary symptoms and ill-defined conditions (10 sources) Hematuria, unspecified; Translations: [Dysuria] Onset: 12-31-2017 Resolved: 08-14-2021 Episodic Mood disorders (11 sources) Mood disorders Onset: 01-30-2023 Resolved: 06-01-2024 01-30-2023 Mycoses (13 sources) Candidiasis of mouth; Translations: [Candidal stomatitis] Onset: 09-02-2023 Resolved: 06-01-2024 08-30-2023 Episodic Other aftercare (1 source) Encounter for therapeutic drug level monitoring; Translations: [ENCOUNTER FOR THERAPEUTIC DRUG LEVEL MONITORING] Onset: 03-27-2017 Episodic Other aftercare (2 sources) Other long-term (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 therapy; Translations: [OTHER CERTIFIED PERSONAL CHEF (CURRENT) DRUG THERAPY] Onset: 02-26-2017 Episodic Other liver diseases (13 sources) Alkaline phosphatase raised; Translations: [Abnormal levels of other serum enzymes] Onset: 01-29-2023 01-29-2023 Episodic Other screening for suspected conditions (not mental disorders or infectious disease) (17 sources) Encounter for screening mammogram for malignant neoplasm of breast; Translations: [Full blood count abnormal] Onset: 07-23-2022 Episodic Other skin disorders (1 source) Rash and other nonspecific skin eruption Onset: 10-27-2021 Resolved: 10-27-2021 Episodic Other upper respiratory infections (11 sources) Sinusitis; Translations: [Chronic sinusitis, unspecified] Onset: [...] WITH AUTO DIFFon BASOPHILS ABSOLUTE AUTO 0 [facility] Basophils/100 WBC (Bld) 0.2 % 0.2 - 2.0 % [facility] Eosinophils/100 WBC (Bld) 2.9 % 0.9 - 7.0 % [facility] Erythrocyte distribution width (RBC) [Ratio] 14.8 % 11.0 - 15.0 % [facility] Hematocrit (Bld) [Volume fraction] 46.8 % 36.0 - 48.0 % [facility] Hemoglobin (Bld) [Mass/Vol] 15.2 g/dL 12.0 - 16.0 g/dL [facility] IMMATURE GRANULOCYTES ABS AUTO 0.02 [facility] Immature granulocytes/100 WBC (Bld) 0.3 % 0.0 - 0.5 % [facility] LYMPHOCYTES ABSOLUTE AUTO 1.5 [facility] Lymphocytes/100 WBC (Bld) 21.9 % 20.5 - 60.0 % [facility] MCH (RBC) [Entitic mass] 30.5 pg 26.7 - 34.0 pg [facility] MCHC (RBC) [Mass/Vol] 32.5 g/dL 29.9 - 35.2 g/dL [facility] MCV (RBC) [Entitic vol] 93.8 fL 81.0 - 99.0 fL [facility] MONOCYTES ABSOLUTE AUTO 0.7 [facility] Monocytes/100 WBC (Bld) 10.5 % 1.7 - 12.0 % [facility] NEUTROPHILS ABSOLUTE AUTO 4.3 [facility] Neutrophils/100 WBC (Bld) 64.2 % 43.0 - 75.0 % [facility] Platelet mean volume (Bld) [Entitic vol] 11.7 fL 9.5 - 13.5 fL [facility] TBH EO # 0.2 [facility] TB PLT 200 [facility] RBC 4.99 [facility] WBC 6.7 [facility] ALL CBC WITH AUTO DIFFon BASOPHILS ABSOLUTE AUTO 0 [facility] Basophils/100 WBC (Bld) 0.1 % Low 0.2 - 2.0 % [facility] Eosinophils/100 WBC (Bld) 3.4 % 0.9 - 7.0 % [facility] Erythrocyte distribution width (RBC) [Ratio] 14.7 % 11.0 - 15.0 % [facility] Hematocrit (Bld) [Volume fraction] 43.1 % 36.0 - 48.0 % [facility] Hemoglobin (Bld) [Mass/Vol] 13.9 g/dL 12.0 - 16.0 g/dL [facility] IMMATURE GRANULOCYTES ABS AUTO 0.01 [facility] Immature granulocytes/100 WBC (Bld) 0.1 % 0.0 - 0.5 % [facility] Interpretation and review of laboratory results Abnormal [facility] LYMPHOCYTES ABSOLUTE AUTO 1.3 [facility] Lymphocytes/100 WBC (Bld) 18.5 % Low 20.5 - 60.0 % [facility] MCH (RBC) [Entitic mass] 30.5 pg 26.7 - 34.0 pg [facility] MCHC (RBC) [Mass/Vol] 32.3 g/dL 29.9 - 35.2 g/dL [facility] MCV (RBC) [Entitic vol] 94.5 fL 81.0 - 99.0 fL [facility] MONOCYTES ABSOLUTE AUTO 0.7 [facility] Monocytes/100 WBC (Bld) 9.9 % 1.7 - 12.0 % [facility] NEUTROPHILS ABSOLUTE AUTO 4.8 [facility] Neutrophils/100 WBC (Bld) 68 % 43.0 - 75.0 % [facility] Platelet mean volume (Bld) [Entitic vol] 11.6 fL 9.5 - 13.5 fL [facility] EO # 0.2 [facility] TB PLT 209 [facility] RBC 4.56 [facility] WBC 7.1 [facility] ALL CBC WITH AUTO DIFFon BASOPHILS ABSOLUTE AUTO 0 [facility] Basophils/100 WBC (Bld) 0.2 % 0.2 - 2.0 % [facility] Eosinophils/100 WBC (Bld) 2.7 % 0.9 - 7.0 % [facility] Erythrocyte distribution width (RBC) [Ratio] 14.6 % 11.0 - 15.0 % [facility] Hematocrit (Bld) [Volume fraction] 46.2 % 36.0 - 48.0 % [facility] Hemoglobin (Bld) [Mass/Vol] 14.8 g/dL 12.0 - 16.0 g/dL [facility] IMMATURE GRANULOCYTES ABS AUTO 0.01 [facility] Immature granulocytes/100 WBC (Bld) 0.2 % 0.0 - 0.5 % [facility] LYMPHOCYTES ABSOLUTE AUTO 1.4 [facility] Lymphocytes/100 WBC (Bld) 22.2 % 20.5 - 60.0 % [facility] MCH (RBC) [Entitic mass] 30.6 pg 26.7 - 34.0 pg [facility] MCHC (RBC) [Mass/Vol] 32 g/dL 29.9 - 35.2 g/dL [facility] MCV (RBC) [Entitic vol] 95.7 fL 81.0 - 99.0 fL [facility] MONOCYTES ABSOLUTE AUTO 0.7 [facility] Monocytes/100 WBC (Bld) 10.3 % 1.7 - 12.0 % [facility] NEUTROPHILS ABSOLUTE AUTO 4.1 [facility] Neutrophils/100 WBC (Bld) 64.4 % 43.0 - 75.0 % [facility] Platelet mean volume (Bld) [Entitic vol] 11.1 fL 9.5 - 13.5 [facility]L [facility] PLT 219 [facility] RBC 4.83 [facility] WBC 6.4 [facility] ALL CBC WITH AUTO DIFFon BASOPHILS ABSOLUTE AUTO 0 [facility] Basophils/100 WBC (Bld) 0.3 % 0.2 - 2.0 % [facility] Eosinophils/100 WBC (Bld) 2.8 % 0.9 - 7.0 % [facility] Erythrocyte distribution width (RBC) [Ratio] 14.9 % 11.0 - 15.0 % [facility] Hematocrit (Bld) [Volume fraction] 44.3 % 36.0 - 48.0 % [facility] Hemoglobin (Bld) [Mass/Vol] 14.2 g/dL 12.0 - 16.0 g/dL [facility] IMMATURE GRANULOCYTES ABS AUTO 0.02 [facility] Immature granulocytes/100 WBC (Bld) 0.3 % 0.0 - 0.5 % [facility] Interpretation and review of laboratory results Abnormal [facility] L[facility] WBC (Bld) 17.3 % Low 20.5 - 60.0 % [facility] MCH (RBC) [Entitic mass] 30.5 pg 26.7 - 34.0 pg [facility] MCHC (RBC) [Mass/Vol] 32.1 g/dL 29.9 - 35.2 g/dL [facility] MCV (RBC) [Entitic vol] 95.3 fL 81.0 - 99.0 fL [facility] MONOCYTES ABSOLUTE AUTO 0.7 [facility] Monocytes/100 WBC (Bld) 9.4 % 1.7 - 12.0 % [facility] NEUTROPHILS ABSOLUTE AUTO 5 [facility] Neutrophils/100 WBC (Bld) 69.9 % 43.0 - 75.0 % [facility] Platelet mean volume (Bld) [Entitic vol] 11.5 fL 9.5 - 13.5 fL [facility] TBH EO # 0.2 [facility] TBH PLT 210 [facility] TB RBC 4.65 [facility] TB WBC 7.1 [facility] 29on 04-01-2024 29 Addended by: ESTER FREDERICK on: 04/01/2024 02:20 PM Modules accepted: Orders Normal [facility] Follow-Upon 04-01-2024 Follow-Up [id number] Tanika Grimm 1955 F Date Provider Department Center 04/01/2024 [id number] CARTER None Family History Family Status - Relation Status Age at Mother Father Level of Service:13421 NC OFFICE/OUTPATIENT ESTABLISHED MOD MDM 30 MIN Reason for Visit and Comments: Kidney Follow-up [[id number]] - Pt has no concerns at this time. Normal [facility] ALL CBC WITH AUTO DIFFon BASOPHILS ABSOLUTE AUTO 0 [facility] Basophils/100 WBC (Bld) 0.2 % 0.2 - 2.0 % [facility] Eosinophils/100 WBC (Bld) 2.2 % 0.9 - 7.0 % [facility] Erythrocyte distribution width (RBC) [Ratio] 14.8 % 11.0 - 15.0 % [facility] Hematocrit (Bld) [Volume fraction] 45.3 % 36.0 - 48.0 % [facility] Hemoglobin (Bld) [Mass/Vol] 14.4 g/dL 12.0 - 16.0 g/dL [facility] IMMATURE GRANULOCYTES ABS AUTO 0.02 [facility] Immature granulocytes/100 WBC (Bld) 0.2 % 0.0 - 0.5 % [facility] Interpretation and review of laboratory results Abnormal [facility] LYMPHOCYTES ABSOLUTE AUTO 1.5 [facility] Lymphocytes/100 WBC (Bld) 18.6 % Low 20.5 - 60.0 % [facility] MCH (RBC) [Entitic mass] 30.6 pg 26.7 - 34.0 pg [facility] MCHC (RBC) [Mass/Vol] 31.8 g/dL 29.9 - 35.2 g/dL [facility] MCV (RBC) [Entitic vol] 96.4 fL 81.0 - 99.0 fL [facility] MONOCYTES ABSOLUTE AUTO 0.8 [facility] Monocytes/100 WBC (Bld) 10 % 1.7 - 12.0 % [facility] NEUTROPHILS ABSOLUTE AUTO 5.5 [facility] Neutrophils/100 WBC (Bld) 68.8 % 43.0 - 75.0 % [facility] Platelet mean volume (Bld) [Entitic vol] 11.4 fL 9.5 - 13.5 fL [facility] TBH EO # 0.2 [facility] PLT 197 [facility] RBC 4.7 [facility] WBC 8.1 [facility] TACROLIMUS ([id number]), BLOODon 02-17-2024 TACROLIMUS ([id number]), BLOOD 4.5 ng/mL 2.0 - 20.0 ng/mL [facility] Comment on above: This test was develo ped and its performance characteristics determined by [employer]. It has not been cleared or approved by the Food and Drug Administration. Trough (immediately following transplant) 15.0 Trough (steady state, 2 weeks or more after transplant): 3.0 - 8.0 Performed by LC-MS/MS technology. Performed at: [address] [id number] Email Production Consultant: Marizol Singleton MD, Phone: [phone] [facility] ALL CBC WITH AUTO DIFFon BASOPHILS ABSOLUTE AUTO 0 [facility] Basophils/100 WBC (Bld) 0.3 % 0.2 - 2.0 % [facility] Eosinophils/100 WBC (Bld) 2.1 % 0.9 - 7.0 % [facility] Erythrocyte distribution width (RBC) [Ratio] 14.7 % 11.0 - 15.0 % [facility] Hematocrit (Bld) [Volume fraction] 43.3 % 36.0 - 48.0 % [facility] Hemoglobin (Bld) [Mass/Vol] 14.2 g/dL 12.0 - 16.0 g/dL [facility] IMMATURE GRANULOCYTES ABS AUTO 0.03 [facility] Immature granulocytes/100 WBC (Bld) 0.4 % 0.0 - 0.5 % [facility] LYMPHOCYTES ABSOLUTE AUTO 1.4 [facility] Lymphocytes/100 WBC (Bld) 20.7 % 20.5 - 60.0 % [facility] MCH (RBC) [Entitic mass] 30.9 pg 26.7 - 34.0 pg [facility] MCHC (RBC) [Mass/Vol] 32.8 g/dL 29.9 - 35.2 g/dL [facility] MCV (RBC) [Entitic vol] 94.1 fL 81.0 - 99.0 fL [facility] MONOCYTES ABSOLUTE AUTO 0.7 [facility] Monocytes/100 WBC (Bld) 10.8 % 1.7 - 12.0 % [facility] NEUTROPHILS ABSOLUTE AUTO 4.4 [facility] Neutrophils/100 WBC (Bld) 65.7 % 43.0 - 75.0 % [facility] Platelet mean volume (Bld) [Entitic vol] 11.3 fL 9.5 - 13.5 fL [facility] RBC 4.6 [facility] TBH WBC 6.7 [facility] ALL MAGNESIUMon 02-13-2024 Magnesium [Mass/Vol] 1.7 mg/dL Low 1.8 - 2 .4 mg/dL [facility] ALL PHOSPHOROUSon 02-13-2024 Phosphate [Mass/Vol] 3.4 mg/dL 2.6 - 4 .7 mg/dL [facility] ALL URIC ACIDon 02-13-2024 Urate [Mass/Vol] 4.7 mg/dL 2.6 - 6.0 mg/dL [facility] CMP (CMP) (FOR REMOTE FH C USE)on 02-13-2024 Albumin [Mass/Vol] 3.6 g/dL 3.4 - 5.0 g/dL [facility] ALBUMIN GLOBULIN RATIO 1.2 [facility] ALP [Catalytic activity/Vol] 131 U/L High 46 - 116 U/L [facility] ALT [Catalytic activity/Vol] 16 U/L 14 - 59 U/L [facility] Anion gap [Moles/Vol] 14 mmol/L [facility] AST [Catalytic activity/Vol] 13 U/L Low 15 - 37 U/L [facility] Bilirubin [Mass/Vol] 0.6 mg/dL 0.2 - 1 .0 mg/dL [facility] Calcium [Mass/Vol] 9.1 mg/dL 8.5 - 10. 1 mg/dL [facility] Chloride [Moles/Vol] 108 mmol/L High 98 - 10 7 mmol/L [facility] CO2 [Moles/Vol] 26.1 mmol/L 21.0 - 32.0 mmol/L [facility] Creatinine [Mass/Vol] 0.97 mg/dL 0.55 - 1.02 mg/dL [facility] GFR/1.73 sq M.predicted CKD-EPI (S/P/Bld) [Vol rate/Area] >60 >=60 mL/min/1.73m 2 [facility] Globulin (S) [Mass/Vol] 2.9 g/dL [facility] Glucose [Mass/Vol] 95 mg/dL 74 - 106 mg/dL [facility] Potassium [Moles/Vol] 4.1 mmol/L 3.5 - 5.1 mmol/L [facility] Protein [Mass/Vol] 6.5 g/dL 6.4 - 8.2 g/dL [facility] Sodium [Moles/Vol] 144 mmol/L 136 - 145 mmol/L [facility] TBH EGFR-NON AF MARSHALLESE 57 Low >=60 mL/min/1.73m 2 [facility] Urea nitrogen [Mass/Vol] 16 mg/dL 7.0 - 18.0 mg/dL [facility] Urea nitrogen/Creatinine [Mass ratio] 16.5 mg/mg [facility] METRO BILIRUBIN, DIRECTon 11 -15-2024 Bilirubin.indirect [Mass/Vol] 0.1 mg/dL 0.0 - 0.2 mg/dL [facility] No Panel Informationon 02-12 Interpretation and review of laboratory results Abnormal [facility] ALL CBC WITH AUTO DIFFon BASOPHILS ABSOLUTE AUTO 0 [facility] Basophils/100 WBC (Bld) 0.1 % Low 0.2 - 2.0 % [facility] Eosinophils/100 WBC (Bld) 2.5 % 0.9 - 7.0 % [facility] Erythrocyte distribution width (RBC) [Ratio] 14.6 % 11.0 - 15.0 % [facility] Hematocrit (Bld) [Volume fraction] 43.8 % 36.0 - 48.0 % [facility] Hemoglobin (Bld) [Mass/Vol] 14 g/dL 12.0 - 16.0 g/dL [facility] IMMATURE GRANULOCYTES ABS AUTO 0.02 [facility] Immature granulocytes/100 WBC (Bld) 0.3 % 0.0 - 0.5 % [facility] Interpretation and review of laboratory results Abnormal [facility] LYMPHOCYTES ABSOLUTE AUTO 1.4 [facility] Lymphocytes/100 WBC (Bld) 18.7 % Low 20.5 - 60.0 % [facility] MCH (RBC) [Entitic mass] 30.3 pg 26.7 - 34.0 pg [facility] MCHC (RBC) [Mass/Vol] 32 g/dL 29.9 - 35.2 g/dL [facility] MCV (RBC) [Entitic vol] 94.8 fL 81.0 - 99.0 fL [facility] MONOCYTES ABSOLUTE AUTO 0.8 [facility] Monocytes/100 WBC (Bld) 11.1 % 1.7 - 12.0 % [facility] NEUTROPHILS ABSOLUTE AUTO 4.9 [facility] Neutrophils/100 WBC (Bld) 67.3 % 43.0 - 75.0 % [facility] Platelet mean volume (Bld) [Entitic vol] 11.2 fL 9.5 - 13.5 fL [facility] TBH EO # 0.2 [facility] PLT 219 [facility] TB RBC 4.62 [facility] WBC 7.3 [facility] [facility] ALL CBC WITH AUTO DIFFon BASOPHILS ABSOLUTE AUTO 0.0 [facility] Basophils/100 WBC (Bld) 0.3 % 0.2 - 2.0 % [facility] Eosinophils/100 WBC (Bld) 3.6 % 0.9 - 7.0 % [facility] Erythrocyte distribution width (RBC) [Ratio] 14.7 % 11.0 - 15.0 % [facility] Hematocrit (Bld) [Volume fraction] 46.0 % 36.0 - 48.0 % [facility] Hemoglobin (Bld) [Mass/Vol] 14.7 g/dL 12.0 - 16.0 g/dL [facility] IMMATURE GRANULOCYTES ABS AUTO 0.01 [facility] Immature granulocytes/100 WBC (Bld) 0.2 % 0.0 - 0.5 % [facility] LYMPHOCYTES ABSOLUTE AUTO 1.4 [facility] Lymphocytes/100 WBC (Bld) 22.4 % 20.5 - 60.0 % [facility] MCH (RBC) [Entitic mass] 30.1 pg 26.7 - 34.0 pg [facility] MCHC (RBC) [Mass/Vol] 32.0 g/dL 29.9 - 35.2 g/dL [facility] MCV (RBC) [Entitic vol] 94.3 fL 81.0 - 99.0 fL [facility] MONOCYTES ABSOLUTE AUTO 0.6 [facility] Monocytes/100 WBC (Bld) 9.6 % 1.7 - 12.0 % [facility] NEUTROPHILS ABSOLUTE AUTO 3.9 [facility] Neutrophils/100 WBC (Bld) 63.9 % 43.0 - 75.0 % [facility] Platelet mean volume (Bld) [Entitic vol] 11.6 fL 9.5 - 13.5 fL [facility] TBH EO # 0.2 [facility] PLT 202 [facility] RBC 4.88 [facility] WBC 6.0 [facility] CLINISYNC [facility] MLR HEMOGLOBIN A1Con 024 Glucose [Mass/Vol] 108 mg/dL [facility] HbA1c (Bld) [Mass fraction] 5.4 % 4.5 - 6.2 % [facility] Comment on above: ADA RECOMMENDED LIMI T 4.0 - 6.0 ADA THERAPEUTIC TARGET < 7.0 ACTION SUGGESTED > 7.0 [facility]23 Documentation [id number] Tanika Grimm 1955 [facility] 12/09/2023 860-FERNANDA CAREY TXP None Family History Family Status - Relation Status Age at Mother Father Reason for Visit and Comments: Prior auth : Mycophenolate [Other] [facility] Documentationon 11-26-2023 Documentation [id number] Tanika Grimm 1955 Provider Department Center 11/26/2023 860-FERNANAD CAREY TXP None Family History Family Status - Relation Status Age at Mother Father Reason for Visit and Comments: Prior auth Tac 0.5mg [Other] [facility] Documentationon 10-27-2023 Documentation [id number] Tanika Grimm 1955 Provider [facility] 10/27/2023 750-RUTH, TYMARA TXP None Family History Family Status - Relation Status Age at Mother Father [facility] 29on 09-23-2023 30 Addended by: DIANE LE on: 09/23/2023 03:27 PM Modules accepted: Orders [facility] Follow-Upon 09-23-2023 Follow-Up [id number] Tanika Grimm 1955 Provider Department Center 09/23/2023 124-MIKE VIRGIL TXP None Family History Family Status - Relation Status Age at Mother Father Level of Service:63497 NC OFFICE/OUTPATIENT ESTABLISHED MOD MDM 30 MIN Reason for Visit and Comments: Kidney Follow-up [] - Pt has been having sores in her mouth for the past month. [facility] No Panel InformationOrdered By: Lindsay Soria on 08-30-2023 Quick Strep (POC) [facility] Documentationon 08-26-2023 Documentation [id number] Tanika Grimm 1955 Date Provider Department Center 08/26/2023 750-RUTH, TYMARA TXP None No family history on file [facility] Documentationon 05-19-2023 Documentation [id number] Tanika Grimm 1955 F Date Provider Department Center 05/19/2023 ANEL HELLER TXP None No family history on file Normal [facility] COVID/FLU/RSV RT-PCRon 03-27 SARS-CoV-2 (COVID-19) RNA MURALI+probe Ql (Unsp spec) Negative [employer] Other COVID/FLU/RSV RT-PCR Negative [facility] [email or web address] Other Quick Strepon 03-27-2023 S. pyogenes Org specific cx Ql (Throat) Negative [facility] [email or web address] Other Quick Strep [facility] [email or web address] Other BILIRUBIN CONJUGATED (DIRECT )on 08-12-2022 BILI, CONJUGATED 0.1 mg/dL Normal 0.0-0.2 [facility] Comment on above: Performed By: #### D DAVIDSON, MG, PHOS, CMP, LIPID, URIC #### [facility] [address] [address] [address] Sarmad Patino GLYCOHEMOGLOBIN A1Con 2022 ADA RECOMMENDATION SEE BELOW Normal [facility] Comment on above: Result Comment: ADA RECOMMENDED LIMIT 4.0 - 6.0 ADA THERAPEUTIC TARGET < 7.0 ACTION SUGGESTED > 7.0 Performed By: #### D DAVIDSON, MG, PHOS, CMP, LIPID, URIC #### [facility] [address] [address] [address] Sarmad Patino Glucose [Mass/Vol] 108 mg/dL Normal [facility] Comment on above: Performed By: #### D DAVIDSON, MG, PHOS, CMP, LIPID, URIC #### [facility] [address] [address] [address] Sarmad Patino HbA1c (Bld) [Mass fraction] 5.4 % Normal 4.5-6.2 [facility] Comment on above: Performed By: #### D DAVIDSON, MG, PHOS, CMP, LIPID, URIC #### [facility] [address] [address] [address] Sarmad Patino MAGNESIUMon 08-12-2022 Magnesium [Mass/Vol] 1.7 mg/dL Critically low 1.8-2.4 [facility] Comment on above: Performed By: #### D DAVIDSON, MG, PHOS, CMP, LIPID, URIC #### [facility] [address] [place] [address] Dr. Sarmad Patino PHOSPHORUSon 08-12-2022 Phosphate [Mass/Vol] 3.9 mg/dL Normal 2.6-4.7 [facility] Comment on above: Performed By: #### U JUVE, LIPID, MG, CMP, DBIL, PHOS #### [facility] [address] [place] [address] Dr. Sarmad Patino PROF 14(COMP METB)on 023 Albumin [Mass/Vol] 3.9 g/dL Normal 3.4-5.0 [facility] Comment on above: Performed By: #### D DAVIDSON, MG, PHOS, CMP, LIPID, URIC #### [facility] [address] [place] [address] Dr. Sarmad Patino Albumin/Globulin [Mass ratio] 1.2 {ratio} Normal [facility] Comment on above: Performed By: #### D DAVIDSON, MG, PHOS, CMP, LIPID, URIC #### [facility] [address] [place] [address] Dr. Sarmad Patino ALP [Catalytic activity/Vol] 126 U/L Critically high 46-116 [facility] Comment on above: Performed By: #### D DAVIDSON, MG, PHOS, CMP, LIPID, URIC #### [facility] [address] [place] [address] Dr. Sarmad Patino ALT [Catalytic activity/Vol] 18 U/L Normal 14-59 [facility] Comment on above: Performed By: #### D DAVIDSON, MG, PHOS, CMP, LIPID, URIC #### [facility] [address] [place] [address] Dr. Sarmad Patino Anion gap [Moles/Vol] 10.4 mmol/L Normal [facility] Comment on above: Performed By: #### D DAVIDSON, MG, PHOS, CMP, LIPID, URIC #### [facility] [address] [address] [address] Sarmad Patino AST [Catalytic activity/Vol] 14 U/L Critically low 15-37 [facility] Comment on above: Performed By: #### D DAVIDSON, MG, PHOS, CMP, LIPID, URIC #### [facility] [address] [address] [address] Sarmad Patino Bilirubin [Mass/Vol] 0.7 mg/dL Normal 0.2-1.0 [facility] Comment on above: Performed By: #### D DAVIDSON, MG, PHOS, CMP, LIPID, URIC #### [facility] [address] [address] [address] Sarmad Patino Calcium [Mass/Vol] 9.8 mg/dL Normal 8.5-10.1 [facility] Comment on above: Performed By: #### D DAVIDSON, MG, PHOS, CMP, LIPID, URIC #### [facility] [address] [address] [address] Sarmad Patino Chloride [Moles/Vol] 106 mmol/L Normal 98-107 [facility] Comment on above: Performed By: #### D DAVIDSON, MG, PHOS, CMP, LIPID, URIC #### [facility] [address] [address] [address] Sarmad Patino CO2 [Moles/Vol] 32.1 mmol/L Critically high 21.0-32.0 [facility] Comment on above: Performed By: #### D DAVIDSON, MG, PHOS, CMP, LIPID, URIC #### [facility] [address] [place] [address] Dr. Sarmad Patino Creatinine [Mass/Vol] 0.92 mg/dL Normal 0.55-1.02 [facility] Comment on above: Performed By: #### D DAVIDSON, MG, PHOS, CMP, LIPID, URIC #### [facility] [address] [place] [address] Dr. Sarmad Patino EGFR-AF MARSHALLESE >60 Normal >=60 [facility] Comment on above: Performed By: #### D DAVIDSON, MG, PHOS, CMP, LIPID, URIC #### [facility] [address] [address] [address] Sarmad Patino EGFR-NON AF MARSHALLESE >60 Normal >=60 [facility] Comment on above: Performed By: #### D DAVIDSON, MG, PHOS, CMP, LIPID, URIC #### [facility] [address] [address] [address] Sarmad Patino Globulin (S) [Mass/Vol] 3.3 g/dL Normal [facility] Comment on above: Performed By: #### D DAVIDSON, MG, PHOS, CMP, LIPID, URIC #### [facility] [address] [address] [address] Sarmad Patino Glucose [Mass/Vol] 102 mg/dL Normal 74-106 [facility] Comment on above: Performed By: #### D DAVIDSON, MG, PHOS, CMP, LIPID, URIC #### [facility] [address] [place] [address] Dr. Sarmad Patino Potassium [Moles/Vol] 4.5 mmol/L Normal 3.5-5.1 [facility] Comment on above: Performed By: #### D DAVIDSON, MG, PHOS, CMP, LIPID, URIC #### [facility] [address] [address] [address] Sarmad Patino Protein [Mass/Vol] 7.2 g/dL Normal 6.4-8.2 [facility] Comment on above: Performed By: #### D DAVIDSON, MG, PHOS, CMP, LIPID, URIC #### [facility] [address] [address] [address] Sarmad Patino Sodium [Moles/Vol] 144 mmol/L Normal 136-145 [facility] Comment on above: Performed By: #### D DAVIDSON, MG, PHOS, CMP, LIPID, URIC #### [facility] [address] [place] [address] Dr. Sarmad Patino Urea nitrogen [Mass/Vol] 20.0 mg/dL Critically high 7.0-18.0 [facility] Comment on above: Performed By: #### D DAVIDSON, MG, PHOS, CMP, LIPID, URIC #### [facility] [address] [place], [place] [address] Dr. Sarmad Patino Urea nitrogen/Creatinine [Mass ratio] 21.7 mg/mg Normal [facility] Comment on above: Performed By: #### D DAVIDSON, MG, PHOS, CMP, LIPID, URIC #### [facility] [address] [place], [place] [address] Dr. Sarmad Patino URIC ACID SERUMon 08-12-2022 Urate [Mass/Vol] 5.2 mg/dL Normal 2.6-6.0 [facility] Comment on above: Performed By: #### D DAVIDSON, MG, PHOS, CMP, LIPID, URIC #### [facility] [id number] Sarmad Patino MG MAMM SCREEN 3D DAVIDSON CADon 07-23-2022 MG MAMM SCREEN 3D DAVIDSON CAD Patient: TANIKA GRIMM Exam Date: 07/23/2022 : 1955 Gender:F Ordering : DR RAMON CARROLL M.D. Admission #: [id number] Family : Order #: [id number] CLICK HERE TO VIEW EXAM RADIOLOGY REPORT [...] None LOCATION: [facility] BREAST COMPOSITION: Extremely dense, which lowers [...] 16:59 Normal [facility] FK506 (TACROLIMUS) WHOLE BLO ODon 07-10-2022 Tacrolimus (FK506), Blood 3.8 ng/mL Normal 2.0-20.0 [facility] Comment on above: Result Comment: Trou gh (immediately following transplant) 15.0 . Trough (steady state, 2 weeks or more after transplant): 3.0 - 8.0 . Performed by LC-MS/MS technology. Performed By: #### D DAVIDSON, MG, PHOS, CMP, LIPID, URIC #### [facility] [address] [address] [address] Sarmad Patino BILIRUBIN CONJUGATED (DIRECT )on 07-08-2022 BILI, CONJUGATED 0.1 mg/dL Normal 0.0-0.2 [facility] Comment on above: Performed By: #### U JUVE, LIPID, MG, CMP, DBIL, PHOS #### [facility] [address] [address] [address] Sarmad Patino GLYCOHEMOGLOBIN A1Con 2022 ADA RECOMMENDATION SEE BELOW Normal [facility] Comment on above: Result Comment: ADA RECOMMENDED LIMIT 4.0 - 6.0 ADA THERAPEUTIC TARGET < 7.0 ACTION SUGGESTED > 7.0 Performed By: #### D DAVIDSON, MG, PHOS, CMP, LIPID, URIC #### [facility] [address] [address] [address] Sarmad Patino Glucose [Mass/Vol] 105 mg/dL Normal [facility] Comment on above: Performed By: #### D DAVIDSON, MG, PHOS, CMP, LIPID, URIC #### [facility] [address] [address] [address] Sarmad Patino HbA1c (Bld) [Mass fraction] 5.3 % Normal 4.5-6.2 [facility] Comment on above: Performed By: #### D DAVIDSON, MG, PHOS, CMP, LIPID, URIC #### [facility] [address] [place] [address] Dr. Sarmad Patino MAGNESIUMon 07-08-2022 Magnesium [Mass/Vol] 1.8 mg/dL Normal 1.8-2.4 [facility] Comment on above: Performed By: #### U JUVE, LIPID, MG, CMP, DBIL, PHOS #### [facility] [address] [place] [address] Dr. Sarmad Patino PHOSPHORUSon 07-08-2022 Phosphate [Mass/Vol] 3.8 mg/dL Normal 2.6-4.7 [facility] Comment on above: Performed By: #### U JUVE, LIPID, MG, CMP, DBIL, PHOS #### [facility] [address] [place] [address] Dr. Sarmad Patino PROF 14(COMP METB)on 023 Albumin [Mass/Vol] 3.7 g/dL Normal 3.4-5.0 [facility] Comment on above: Performed By: #### U JUVE, LIPID, MG, CMP, DBIL, PHOS #### [facility] [address] [place] [address] Dr. Sarmad Patino Albumin/Globulin [Mass ratio] 1.1 {ratio} Normal [facility] Comment on above: Performed By: #### U JUVE, LIPID, MG, CMP, DBIL, PHOS #### [facility] [address] [place] [address] Dr. Sarmad Patino ALP [Catalytic activity/Vol] 124 U/L Critically high 46-116 [facility] Comment on above: Performed By: #### U JUVE, LIPID, MG, CMP, DBIL, PHOS #### [facility] [address] [place] [address] Dr. Sarmad Patino ALT [Catalytic activity/Vol] 20 U/L Normal 14-59 [facility] Comment on above: Performed By: #### U JUVE, LIPID, MG, CMP, DBIL, PHOS #### [facility] [address] [place] [address] Dr. Sarmad Patino Anion gap [Moles/Vol] 11.5 mmol/L Normal [facility] Comment on above: Performed By: #### U JUVE, LIPID, MG, CMP, DBIL, PHOS #### [facility] [address] [address] [address] Sarmad Patino AST [Catalytic activity/Vol] 12 U/L Critically low 15-37 [facility] Comment on above: Performed By: #### U JUVE, LIPID, MG, CMP, DBIL, PHOS #### [facility] [address] [address] [address] Sarmad Patino Bilirubin [Mass/Vol] 0.5 mg/dL Normal 0.2-1.0 [facility] Comment on above: Performed By: #### U JUVE, LIPID, MG, CMP, DBIL, PHOS #### [facility] [address] [address] [address] Sarmad Patino Calcium [Mass/Vol] 9.6 mg/dL Normal 8.5-10.1 [facility] Comment on above: Performed By: #### U JUVE, LIPID, MG, CMP, DBIL, PHOS #### [facility] [address] [place] [address] Dr. Sarmad Patino Chloride [Moles/Vol] 106 mmol/L Normal 98-107 [facility] Comment on above: Performed By: #### U JUVE, LIPID, MG, CMP, DBIL, PHOS #### [facility] [address] [place] [address] Dr. Sarmad Patino CO2 [Moles/Vol] 29.7 mmol/L Normal 21.0-32.0 [facility] Comment on above: Performed By: #### U JUVE, LIPID, MG, CMP, DBIL, PHOS #### [facility] [address] [place] [address] Dr. Sarmad Patino Creatinine [Mass/Vol] 0.77 mg/dL Normal 0.55-1.02 [facility] Comment on above: Performed By: #### U JUVE, LIPID, MG, CMP, DBIL, PHOS #### [facility] [address] [place] [address] Dr. Sarmad Patino EGFR-AF MARSHALLESE >60 Normal >=60 [facility] Comment on above: Performed By: #### U JUVE, LIPID, MG, CMP, DBIL, PHOS #### [facility] [address] [place] [address] Dr. Sarmad Patino EGFR-NON AF MARSHALLESE >60 Normal >=60 [facility] Comment on above: Performed By: #### U JUVE, LIPID, MG, CMP, DBIL, PHOS #### [facility] [address] [place] [address] Dr. Sarmad Patino Globulin (S) [Mass/Vol] 3.4 g/dL Normal [facility] Comment on above: Performed By: #### U JUVE, LIPID, MG, CMP, DBIL, PHOS #### [facility] [address] [place] [address] Dr. Sarmad Patino Glucose [Mass/Vol] 97 mg/dL Normal 74-106 [facility] Comment on above: Performed By: #### U JUVE, LIPID, MG, CMP, DBIL, PHOS #### [facility] [address] [place] [address] Dr. Sarmad Patino Potassium [Moles/Vol] 4.2 mmol/L Normal 3.5-5.1 [facility] Comment on above: Performed By: #### U JUVE, LIPID, MG, CMP, DBIL, PHOS #### [facility] [address] [place] [address] Dr. Sarmad Patino Protein [Mass/Vol] 7.1 g/dL Normal 6.4-8.2 [facility] Comment on above: Performed By: #### U JUVE, LIPID, MG, CMP, DBIL, PHOS #### [facility] [address] [place] [address] Dr. Sarmad Patino Sodium [Moles/Vol] 143 mmol/L Normal 136-145 [facility] Comment on above: Performed By: #### U JUVE, LIPID, MG, CMP, DBIL, PHOS #### [facility] [address] [place] [address] Dr. Sarmad Patino Urea nitrogen [Mass/Vol] 26.0 mg/dL Critically high 7.0-18.0 [facility] Comment on above: Performed By: #### U JUVE, LIPID, MG, CMP, DBIL, PHOS #### [facility] [address] [address] [address] Sarmad Patino Urea nitrogen/Creatinine [Mass ratio] 33.8 mg/mg Normal [facility] Comment on above: Performed By: #### U JUVE, LIPID, MG, CMP, DBIL, PHOS #### [facility] [address] [address] [address] Sarmad Patino URIC ACID SERUMon 07-08-2022 Urate [Mass/Vol] 4.7 mg/dL Normal 2.6-6.0 [facility] Comment on above: Performed By: #### U JUVE, LIPID, MG, CMP, DBIL, PHOS #### [facility] [address] [place] [address] Dr. Sarmad Patino FK506 (TACROLIMUS) WHOLE BLO ODon 06-13-2022 Tacrolimus (FK506), Blood 3.0 ng/mL Normal 2.0-20.0 [facility] Comment on above: Result Comment: Trou gh (immediately following transplant) 15.0 . Trough (steady state, 2 weeks or more after transplant): 3.0 - 8.0 . Performed by LC-MS/MS technology. Performed By: #### D DAVIDSON, MG, PHOS, CMP, LIPID, URIC #### [facility] [address] [place] [address] Dr. Sarmad Patino BK VIRUS PCR QUANTon 023 BKV DNA QUANT PCR PLASMA Negative Normal Negative [facility] Comment on above: Result Comment: No B K DNA detected. . The linear range of the assay is 22 - 100,000,000 IU/mL. Performed By: #### B KVIRUS #### [facility] [address] [place] [address] Dr. Sarmad Patino Log10 BKV DNA Plasma Normal [facility] Comment on above: Performed By: #### B KVIRUS #### [facility] [address] [place] [address] Dr. Sarmad Patino BILIRUBIN CONJUGATED (DIRECT )on 06-10-2022 BILI, CONJUGATED 0.1 mg/dL Normal 0.0-0.2 [facility] Comment on above: Performed By: #### U JUVE, LIPID, MG, CMP, DBIL, PHOS #### [facility] [address] [address] [address] Sarmad Patino GLYCOHEMOGLOBIN A1Con 2022 ADA RECOMMENDATION SEE BELOW Normal [facility] Comment on above: Result Comment: ADA RECOMMENDED LIMIT 4.0 - 6.0 ADA THERAPEUTIC TARGET < 7.0 ACTION SUGGESTED > 7.0 Performed By: #### D DAVIDSON, MG, PHOS, CMP, LIPID, URIC #### [facility] [address] [address] [address] Sarmad Patino Glucose [Mass/Vol] 114 mg/dL Normal [facility] Comment on above: Performed By: #### D DAVIDSON, MG, PHOS, CMP, LIPID, URIC #### [facility] [address] [place] [address] Dr. Sarmad Patino HbA1c (Bld) [Mass fraction] 5.6 % Normal 4.5-6.2 [facility] Comment on above: Performed By: #### D DAVIDSON, MG, PHOS, CMP, LIPID, URIC #### [facility] [address] [address] [address] Sarmad Patino MAGNESIUMon 06-10-2022 Magnesium [Mass/Vol] 1.6 mg/dL Critically low 1.8-2.4 [facility] Comment on above: Performed By: #### U JUVE, LIPID, MG, CMP, DBIL, PHOS #### [facility] [address] [place] [address] Dr. Sarmad Patino PROF 14(COMP METB)on 023 Albumin [Mass/Vol] 3.7 g/dL Normal 3.4-5.0 [facility] Comment on above: Performed By: #### U JUVE, LIPID, MG, CMP, DBIL, PHOS #### [facility] [facility] [address] [place] [address] Dr. Sarmad Pation Albumin/Globulin [Mass ratio] 1.1 {ratio} Normal [facility] Comment on above: Performed By: #### U JUVE, LIPID, MG, CMP, DBIL, PHOS #### [facility] [address] [address] [address] Sarmad Patino ALP [Catalytic activity/Vol] 142 U/L Critically high 46-116 [facility] Comment on above: Performed By: #### U JUVE, LIPID, MG, CMP, DBIL, PHOS #### [facility] [address] [place] [address] Dr. Sarmad Patino ALT [Catalytic activity/Vol] 29 U/L Normal 14-59 [facility] Comment on above: Performed By: #### U JUVE, LIPID, MG, CMP, DBIL, PHOS #### [facility] [address] [address] [address] Sarmad Patino Anion gap [Moles/Vol] 11.1 mmol/L Normal Th [facility] Comment on above: Performed By: #### U JUVE, LIPID, MG, CMP, DBIL, PHOS #### [facility] [address] [place] [address] Dr. Sarmad Patino AST [Catalytic activity/Vol] 19 U/L Normal 15-37 [facility] Comment on above: Performed By: #### U JUVE, LIPID, MG, CMP, DBIL, PHOS #### [facility] [address] [place] [address] Dr. Sarmad Patino Bilirubin [Mass/Vol] 0.6 mg/dL Normal 0.2-1.0 [facility] Comment on above: Performed By: #### U JUVE, LIPID, MG, CMP, DBIL, PHOS #### [facility] [address] [place] [address] Dr. Sarmad Patino Calcium [Mass/Vol] 9.8 mg/dL Normal 8.5-10.1 [facility] Comment on above: Performed By: #### U JUVE, LIPID, MG, CMP, DBIL, PHOS #### [facility] [address] [place] [address] Dr. Sarmad Patino Chloride [Moles/Vol] 103 mmol/L Normal 98-107 [facility] Comment on above: Performed By: #### U JUVE, LIPID, MG, CMP, DBIL, PHOS #### [facility] [address] [place] [address] Dr. Sarmad Patino CO2 [Moles/Vol] 30.7 mmol/L Normal 21.0-32.0 [facility] Comment on above: Performed By: #### U JUVE, LIPID, MG, CMP, DBIL, PHOS #### [facility] [address] [place] [address] Dr. Sarmad Patino Creatinine [Mass/Vol] 0.79 mg/dL Normal 0.55-1.02 [facility] Comment on above: Performed By: #### U JUVE, LIPID, MG, CMP, DBIL, PHOS #### [facility] [address] [place] [address] Dr. Sarmad Patino EGFR-AF MARSHALLESE >60 Normal >=60 [facility] Comment on above: Performed By: #### U JUVE, LIPID, MG, CMP, DBIL, PHOS #### [facility] [address] [place] [address] Dr. Sarmad Patino EGFR-NON AF MARSHALLESE >60 Normal >=60 [facility] Comment on above: Performed By: #### U JUVE, LIPID, MG, CMP, DBIL, PHOS #### [facility] [address] [place] [address] Dr. Sarmad Patino Globulin (S) [Mass/Vol] 3.4 g/dL Normal [facility] Comment on above: Performed By: #### U JUVE, LIPID, MG, CMP, DBIL, PHOS #### [facility] [address] [place] [address] Dr. Sarmad Patino Glucose [Mass/Vol] 94 mg/dL Normal 74-106 [facility] Comment on above: Performed By: #### U JUVE, LIPID, MG, CMP, DBIL, PHOS #### [facility] [address] [place] [address] Dr. Sarmad Patino Potassium [Moles/Vol] 3.8 mmol/L Normal 3.5-5.1 [facility] Comment on above: Performed By: #### U JUVE, LIPID, MG, CMP, DBIL, PHOS #### [facility] [address] [address] [address] Sarmad Patino Protein [Mass/Vol] 7.1 g/dL Normal 6.4-8.2 [facility] Comment on above: Performed By: #### U JUVE, LIPID, MG, CMP, DBIL, PHOS #### [facility] [address] [address] [address] Sarmad Patino Sodium [Moles/Vol] 141 mmol/L Normal 136-145 [facility] Comment on above: Performed By: #### U JUVE, LIPID, MG, CMP, DBIL, PHOS #### [facility] [address] [place] [address] Dr. Sarmad Patino Urea nitrogen [Mass/Vol] 17.0 mg/dL Normal 7.0-18.0 [facility] Comment on above: Performed By: #### U JUVE, LIPID, MG, CMP, DBIL, PHOS #### [facility] [address] [place] [address] Dr. Sarmad Patino Urea nitrogen/Creatinine [Mass ratio] 21.5 mg/mg Normal [facility] Comment on above: Performed By: #### U JUVE, LIPID, MG, CMP, DBIL, PHOS #### [facility] [address] [place] [address] Dr. Sarmad Patino URIC ACID SERUMon 06-10-2022 Urate [Mass/Vol] 5.1 mg/dL Normal 2.6-6.0 [facility] Comment on above: Performed By: #### U JUVE, LIPID, MG, CMP, DBIL, PHOS #### [facility] [address] [place] [address] Dr. Sarmad Patino BK VIRUS PCR QUANTon 023 BKV DNA QUANT PCR PLASMA Negative Normal Negative [facility] Comment on above: Result Comment: No B K DNA detected. . The linear range of the assay is 22 - 100,000,000 IU/mL. Performed By: #### U JUVE, LIPID, MG, CMP, DBIL, PHOS #### [facility] [address] [address] [address] Sarmad Patino Log10 BKV DNA Plasma Normal [facility] Comment on above: Performed By: #### U JUVE, LIPID, MG, CMP, DBIL, PHOS #### [facility] [address] [address] [address] Sarmad Patino FK506 (TACROLIMUS) WHOLE BLO ODon 05-13-2022 Tacrolimus (FK506), Blood 4.1 ng/mL Normal 2.0-20.0 [facility] Comment on above: Result Comment: Trou gh (immediately following transplant) 15.0 . Trough (steady state, 2 weeks or more after transplant): 3.0 - 8.0 . Performed by LC-MS/MS technology. Performed By: #### U JUVE, LIPID, MG, CMP, DBIL, PHOS #### [facility] [address] [address] [address] Sarmad Patino BILIRUBIN CONJUGATED (DIRECT )on 05-10-2022 BILI, CONJUGATED 0.1 mg/dL Normal 0.0-0.2 [facility] Comment on above: Performed By: #### D DAVIDSON, MG, PHOS, CMP, LIPID, URIC #### [facility] [address] [address] [address] Sarmad Patino GLYCOHEMOGLOBIN A1Con 2022 ADA RECOMMENDATION SEE BELOW Normal [facility] Comment on above: Result Comment: ADA RECOMMENDED LIMIT 4.0 - 6.0 ADA THERAPEUTIC TARGET < 7.0 ACTION SUGGESTED > 7.0 Performed By: #### D DAVIDSON, MG, PHOS, CMP, LIPID, URIC #### [facility] [address] [address] [address] Sarmad Patino Glucose [Mass/Vol] 108 mg/dL Normal [facility] Comment on above: Performed By: #### D DAVIDSON, MG, PHOS, CMP, LIPID, URIC #### [facility] [address] [address] [address] Sarmad Patino HbA1c (Bld) [Mass fraction] 5.4 % Normal 4.5-6.2 [facility] Comment on above: Performed By: #### D DAVIDSON, MG, PHOS, CMP, LIPID, URIC #### [facility] [address] [place] [address] Dr. Sarmad Patino MAGNESIUMon 05-10-2022 Magnesium [Mass/Vol] 1.9 mg/dL Normal 1.8-2.4 [facility] Comment on above: Performed By: #### U JUVE, LIPID, MG, CMP, DBIL, PHOS #### [facility] [address] [place] [address] Dr. Sarmad Patino PROF 14(COMP METB)on 023 Albumin [Mass/Vol] 3.9 g/dL Normal 3.4-5.0 [facility] Comment on above: Performed By: #### D DAVIDSON, MG, PHOS, CMP, LIPID, URIC #### [facility] [address] [place] [address] Dr. Sarmad Patino Albumin/Globulin [Mass ratio] 1.2 {ratio} Normal [facility] Comment on above: Performed By: #### D DAVIDSON, MG, PHOS, CMP, LIPID, URIC #### [facility] [address] [place] [address] Dr. Sarmad Patino ALP [Catalytic activity/Vol] 114 U/L Normal 46-116 [facility] Comment on above: Performed By: #### D DAVIDSON, MG, PHOS, CMP, LIPID, URIC #### [facility] [address] [place] [address] Dr. Sarmad Patino ALT [Catalytic activity/Vol] 18 U/L Normal 14-59 [facility] Comment on above: Performed By: #### D DAVIDSON, MG, PHOS, CMP, LIPID, URIC #### [facility] [address] [address] [address] Sarmad Patino Anion gap [Moles/Vol] 15.9 mmol/L Normal [facility] Comment on above: Performed By: #### D DAVIDSON, MG, PHOS, CMP, LIPID, URIC #### [facility] [address] [place] [address] Dr. Sarmad Patino AST [Catalytic activity/Vol] 17 U/L Normal 15-37 [facility] Comment on above: Performed By: #### D DAVIDSON, MG, PHOS, CMP, LIPID, URIC #### [facility] [address] [address] [address] Sarmad Patino Bilirubin [Mass/Vol] 0.4 mg/dL Normal 0.2-1.0 [facility] Comment on above: Performed By: #### D DAVIDSON, MG, PHOS, CMP, LIPID, URIC #### [facility] [address] [address] [address] Sarmad aPtino Calcium [Mass/Vol] 9.8 mg/dL Normal 8.5-10.1 [facility] Comment on above: Performed By: #### D DAVIDSON, MG, PHOS, CMP, LIPID, URIC #### [facility] [address] [place] [address] Dr. Sarmad Patino Chloride [Moles/Vol] 103 mmol/L Normal 98-107 [facility] Comment on above: Performed By: #### D DAVIDSON, MG, PHOS, CMP, LIPID, URIC #### [facility] [address] [address] [address] Sarmad Patino CO2 [Moles/Vol] 29.2 mmol/L Normal 21.0-32.0 [facility] Comment on above: Performed By: #### D DAVIDSON, MG, PHOS, CMP, LIPID, URIC #### [facility] [address] [place] [address] Dr. Sarmad Patino Creatinine [Mass/Vol] 0.74 mg/dL Normal 0.55-1.02 [facility] Comment on above: Performed By: #### D DAVIDSON, MG, PHOS, CMP, LIPID, URIC #### [facility] [address] [address] [address] Sarmad Patino EGFR-AF MARSHALLESE >60 Normal >=60 [facility] Comment on above: Performed By: #### D DAVIDSON, MG, PHOS, CMP, LIPID, URIC #### [facility] [address] [address] [address] Sarmad Patino EGFR-NON AF MARSHALLESE >60 Normal >=60 [facility] Comment on above: Performed By: #### D DAVIDSON, MG, PHOS, CMP, LIPID, URIC #### [facility] [address] [address] [address] Sarmad Patino Globulin (S) [Mass/Vol] 3.2 g/dL Normal [facility] Comment on above: Performed By: #### D DAVIDSON, MG, PHOS, CMP, LIPID, URIC #### [facility] [address] [place] [address] Dr. Sarmad Patino Glucose [Mass/Vol] 94 mg/dL Normal 74-106 [facility] Comment on above: Performed By: #### D DAVIDSON, MG, PHOS, CMP, LIPID, URIC #### [facility] [address] [place] [address] Dr. Sarmad Patino Potassium [Moles/Vol] 4.1 mmol/L Normal 3.5-5.1 [facility] Comment on above: Performed By: #### D DAVIDSON, MG, PHOS, CMP, LIPID, URIC #### [facility] [address] [place] [address] Dr. Sarmad Patino Protein [Mass/Vol] 7.1 g/dL Normal 6.4-8.2 [facility] Comment on above: Performed By: #### D DAVIDSON, MG, PHOS, CMP, LIPID, URIC #### [facility] [address] [place] [address] Dr. Sarmad Patino Sodium [Moles/Vol] 144 mmol/L Normal 136-145 [facility] Comment on above: Performed By: #### D DAVIDSON, MG, PHOS, CMP, LIPID, URIC #### [facility] [address] [place] [address] Dr. Sarmad Patino Urea nitrogen [Mass/Vol] 18.0 mg/dL Normal 7.0-18.0 [facility] Comment on above: Performed By: #### D DAVIDSON, MG, PHOS, CMP, LIPID, URIC #### [facility] [address] [place] [address] Dr. Sarmad Patino Urea nitrogen/Creatinine [Mass ratio] 24.3 mg/mg Normal [facility] Comment on above: Performed By: #### D DAVIDSON, MG, PHOS, CMP, LIPID, URIC #### [facility] [address] [address] [address] Sarmad Patino URIC ACID SERUMon 05-10-2022 Urate [Mass/Vol] 5.1 mg/dL Normal 2.6-6.0 [facility] Comment on above: Performed By: #### U JUVE, LIPID, MG, CMP, DBIL, PHOS #### [facility] [address] [address] [address] Sarmad Patino MYCOPHENOLIC ACIDon 04-17-19 Mycophenolic Acid 1.2 ug/mL Normal 1.0-3.5 [facility] Comment on above: Performed By: #### D DAVIDSON, MG, PHOS, CMP, LIPID, URIC #### [facility] [address] [place] [address] Dr. Sarmad Patino Mycophenolic Acid Glucuronide 37 ug/mL Normal 15-125 [facility] Comment on above: Result Comment: [facility] 's Reference Range: 35-100 mcg/mL. Performed By: #### D DAVIDSON, MG, PHOS, CMP, LIPID, URIC #### [facility] [address] [place] [address] Dr. Sarmad Patino FK506 (TACROLIMUS) WHOLE BLO ODon 04-10-2022 Tacrolimus (FK506), Blood 4.2 ng/mL Normal 2.0-20.0 [facility] Comment on above: Result Comment: Trou gh (immediately following transplant) 15.0 . Trough (steady state, 2 weeks or more after transplant): 3.0 - 8.0 . Performed by LC-MS/MS technology. Performed By: #### D DAVIDSON, MG, PHOS, CMP, LIPID, URIC #### [facility] [address] [place] [address] Dr. Sarmad Patino BILIRUBIN CONJUGATED (DIRECT )on 04-08-2022 BILI, CONJUGATED 0.1 mg/dL Normal 0.0-0.2 [facility] Comment on above: Performed By: #### U JUVE, LIPID, MG, CMP, DBIL, PHOS #### [facility] [address] [place] [address] Dr. Sarmad Patino CBC AUTO DIFFon 04-08-2022 BASO # 0.0 103/ul Normal 0.0-0.1 [facility] Comment on above: Performed By: #### D DAVIDSON, MG, PHOS, CMP, LIPID, URIC #### [facility] [address] [place] [address] Dr. Sarmad Patino Basophils/100 WBC (Bld) 0.3 % Normal 0.2-2.0 [facility] Comment on above: Performed By: #### D DAVIDSON, MG, PHOS, CMP, LIPID, URIC #### [facility] [address] [place] [address] Dr. Sarmad Patino EO # 0.1 103/ul Normal 0.0-0.7 [facility] Comment on above: Performed By: #### D DAVIDSON, MG, PHOS, CMP, LIPID, URIC #### [facility] [address] [place] [address] Dr. Sarmad Patino Eosinophils/100 WBC (Bld) 1.4 % Normal 0.9-7.0 [facility] Comment on above: Performed By: #### D DAVIDSON, MG, PHOS, CMP, LIPID, URIC #### [facility] [address] [place] [address] Dr. Sarmad Patino Erythrocyte distribution width (RBC) [Ratio] 15.8 % Critically high 11.0-15.0 [facility] Comment on above: Performed By: #### D DAVIDSON, MG, PHOS, CMP, LIPID, URIC #### [facility] [address] [place] [address] Dr. Sarmad Patino Hematocrit (Bld) [Volume fraction] 43.0 % Normal 36.0-48.0 [facility] Comment on above: Performed By: #### D DAVIDSON, MG, PHOS, CMP, LIPID, URIC #### [facility] [address] [place] [address] Dr. Sarmad Patino Hemoglobin (Bld) [Mass/Vol] 15.0 g/dL Normal 12.0-16.0 [facility] Comment on above: Performed By: #### D DAVIDSON, MG, PHOS, CMP, LIPID, URIC #### [facility] [address] [address] [address] Sarmad Patino IG # 0.01 10e3/ul Normal 0.00-0.03 [facility] Comment on above: Performed By: #### D DAVIDSON, MG, PHOS, CMP, LIPID, URIC #### [facility] [address] [place] [address] Dr. Sarmad Patino IG % 0.1 % Normal 0.0-0.5 [facility] Comment on above: Performed By: #### D DAVIDSON, MG, PHOS, CMP, LIPID, URIC #### [facility] [address] [place] [address] Dr. Sarmad Patino LYMPH # 1.3 103/ul Normal 1.2-3.8 [facility] Comment on above: Performed By: #### D DAVIDSON, MG, PHOS, CMP, LIPID, URIC #### [facility] [address] [place] [address] Dr. Sarmad Patino Lymphocytes/100 WBC (Bld) 18.3 % Critically low 20.5-60.0 [facility] Comment on above: Performed By: #### D DAVIDSON, MG, PHOS, CMP, LIPID, URIC #### [facility] [address] [place] [address] Dr. Sarmad Patino MANUAL DIFF REQ NO Normal [facility] Comment on above: Performed By: #### D DAVIDSON, MG, PHOS, CMP, LIPID, URIC #### [facility] [address] [place] [address] Dr. Sarmad Patino MCH (RBC) [Entitic mass] 29.7 pg Normal 26.7-34.0 [facility] Comment on above: Performed By: #### D DAVIDSON, MG, PHOS, CMP, LIPID, URIC #### [facility] [address] [place] [address] Dr. Sarmad Patino MCHC (RBC) [Mass/Vol] 34.9 g/dL Normal 29.9-35.2 [facility] Comment on above: Performed By: #### D DAVIDSON, MG, PHOS, CMP, LIPID, URIC #### [facility] [address] [address] [address] Sarmad Patino MCV (RBC) [Entitic vol] 85.1 fL Normal 81.0-99.0 [facility] Comment on above: Performed By: #### D DAVIDSON, MG, PHOS, CMP, LIPID, URIC #### [facility] [address] [place] [address] Dr. Sarmad Patino MONO # 0.7 103/ul Normal 0.3-0.8 [facility] Comment on above: Performed By: #### D DAVIDSON, MG, PHOS, CMP, LIPID, URIC #### [facility] [address] [place] [address] Dr. Sarmad Patino Monocytes/100 WBC (Bld) 9.8 % Normal 1.7-12.0 [facility] Comment on above: Performed By: #### D DAVIDSON, MG, PHOS, CMP, LIPID, URIC #### [facility] [address] [place] [address] Dr. Sarmad Patino NEUT # 5.1 103/ul Normal 1.4-6.5 [facility] Comment on above: Performed By: #### D DAVIDSON, MG, PHOS, CMP, LIPID, URIC #### [facility] [address] [place] [address] Dr. Sarmad Patino Neutrophils/100 WBC (Bld) 70.1 % Normal 43.0-75.0 [facility] Comment on above: Performed By: #### D DAVIDSON, MG, PHOS, CMP, LIPID, URIC #### [facility] [address] [place] [address] Dr. Sarmad Patino Platelet mean volume (Bld) [Entitic vol] 10.4 fL Normal 9.5-13.5 [facility] Comment on above: Performed By: #### D DAVIDSON, MG, PHOS, CMP, LIPID, URIC #### [facility] [address] [place] [address] Dr. Sarmad Patino PLT 229 103/ul Normal 150-450 [facility] Comment on above: Performed By: #### D DAVIDSON, MG, PHOS, CMP, LIPID, URIC #### [facility] [address] [address] [address] Sarmad Patino RBC 5.05 106/ul Normal 4.20-5.40 [facility] Comment on above: Performed By: #### D DAVIDSON, MG, PHOS, CMP, LIPID, URIC #### [facility] [address] [place] [address] Dr. Sarmad Patino WBC 7.2 103/ul Normal 4.0-11.0 [facility] Comment on above: Performed By: #### D DAVIDSON, MG, PHOS, CMP, LIPID, URIC #### [facility] [address] [place] [address] Dr. Sarmad Patino LIPID PROFILEon 04-08-2022 CHOL-HDL RATIO NORM SEE BELOW Normal [facility] Comment on above: Result Comment: 3.3 - 4.4 LOW RISK 4.4 - 7.1 AVERAGE RISK 7.1 - 11.0 MODERATE RISK >11.0 HIGH RISK Performed By: #### U JUVE, LIPID, MG, CMP, DBIL, PHOS #### [facility] [address] [place] [address] Dr. Sarmad Patino Cholesterol [Mass/Vol] 134 mg/dL Normal <=200 [facility] Comment on above: Performed By: #### U JUVE, LIPID, MG, CMP, DBIL, PHOS #### [facility] [address] [place] [address] Dr. Sarmad Patino Cholesterol in HDL [Mass/Vol] 55 mg/dL Normal 40-60 [facility] Comment on above: Performed By: #### U JUVE, LIPID, MG, CMP, DBIL, PHOS #### [facility] [address] [place] [address] Dr. Sarmad Patino Cholesterol in LDL [Mass/Vol] 56.6 mg/dL Normal [facility] Comment on above: Performed By: #### U JUVE, LIPID, MG, CMP, DBIL, PHOS #### [facility] [address] [place] [address] Dr. Sarmad Patino Cholesterol.total/Cho lesterol in HDL [Mass ratio] 2.4 {ratio} Normal [facility] Comment on above: Performed By: #### U JUVE, LIPID, MG, CMP, DBIL, PHOS #### [facility] [address] [address] [address] Sarmad Patino HDL NORMAL > or = 60 mg/dl - LO W CARDIOVASCULAR RISK <40 mg/dl - HIGH CARDIOVASCULAR RISK Normal [facility] Comment on above: Performed By: #### U JUVE, LIPID, MG, CMP, DBIL, PHOS #### [facility] [address] [address] [address] Sarmad Patino LDL CALC NORMAL SEE BELOW Normal [facility] Comment on above: Result Comment: <100 mg/dl OPTIMAL 100 - 129 mg/dl NEAR OR ABOVE OPTIMAL 130 - 159 mg/dl BORDERLINE HIGH 160 - 189 mg/dl HIGH >190 mg/dl VERY HIGH Performed By: #### U JUVE, LIPID, MG, CMP, DBIL, PHOS #### [facility] [address] [address] [address] Sarmad Patino Triglyceride [Mass/Vol] 112 mg/dL Normal <=150 [facility] Comment on above: Performed By: #### U JUVE, LIPID, MG, CMP, DBIL, PHOS #### [facility] [address] [address] [address] Sarmad Patino VLDL CALC 22.4 mg/dL Normal [facility] Comment on above: Performed By: #### U JUVE, LIPID, MG, CMP, DBIL, PHOS #### [facility] [address] [address] [address] Sarmad Patino MAGNESIUMon 04-08-2022 Magnesium [Mass/Vol] 1.8 mg/dL Normal 1.8-2.4 [facility] Comment on above: Performed By: #### U JUVE, LIPID, MG, CMP, DBIL, PHOS #### [facility] [address] [address] [address] Sarmad Patino PHOSPHORUSon 04-08-2022 Phosphate [Mass/Vol] 3.9 mg/dL Normal 2.6-4.7 [facility] Comment on above: Performed By: #### U JUVE, LIPID, MG, CMP, DBIL, PHOS #### [facility] [address] [place] [address] Dr. Sarmad Patino PROF 14(COMP METB)on 023 Albumin [Mass/Vol] 4.0 g/dL Normal 3.4-5.0 [facility] Comment on above: Performed By: #### U JUVE, LIPID, MG, CMP, DBIL, PHOS #### [facility] [address] [place] [address] Dr. Sarmad Patino Albumin/Globulin [Mass ratio] 1.3 {ratio} Normal [facility] Comment on above: Performed By: #### U JUVE, LIPID, MG, CMP, DBIL, PHOS #### [facility] [address] [place] [address] Dr. Sarmad Patino ALP [Catalytic activity/Vol] 108 U/L Normal 46-116 [facility] Comment on above: Performed By: #### U JUVE, LIPID, MG, CMP, DBIL, PHOS #### [facility] [address] [place] [address] Dr. Sarmad Patino ALT [Catalytic activity/Vol] 15 U/L Normal 14-59 [facility] Comment on above: Performed By: #### U JUVE, LIPID, MG, CMP, DBIL, PHOS #### [facility] [address] [place] [address] Dr. Sarmad Patino Anion gap [Moles/Vol] 14.3 mmol/L Normal [facility] Comment on above: Performed By: #### U JUVE, LIPID, MG, CMP, DBIL, PHOS #### [facility] [address] [place] [address] Dr. Sarmad Patino AST [Catalytic activity/Vol] 15 U/L Normal 15-37 [facility] Comment on above: Performed By: #### U JUVE, LIPID, MG, CMP, DBIL, PHOS #### [facility] [address] [place] [address] Dr. Sarmad Patino Bilirubin [Mass/Vol] 0.5 mg/dL Normal 0.2-1.0 [facility] Comment on above: Performed By: #### U JUVE, LIPID, MG, CMP, DBIL, PHOS #### [facility] [address] [place] [address] Dr. Sarmad Patino Calcium [Mass/Vol] 9.7 mg/dL Normal 8.5-10.1 [facility] Comment on above: Performed By: #### U JUVE, LIPID, MG, CMP, DBIL, PHOS #### [facility] [address] [place] [address] Dr. Sarmad Patino Chloride [Moles/Vol] 105 mmol/L Normal 98-107 [facility] Comment on above: Performed By: #### U JUVE, LIPID, MG, CMP, DBIL, PHOS #### [facility] [address] [place] [address] Dr. Sarmad Patino CO2 [Moles/Vol] 26.6 mmol/L Normal 21.0-32.0 [facility] Comment on above: Performed By: #### U JUVE, LIPID, MG, CMP, DBIL, PHOS #### [facility] [address] [place] [address] Dr. Sarmad Patino Creatinine [Mass/Vol] 0.80 mg/dL Normal 0.55-1.02 [facility] Comment on above: Performed By: #### U JUVE, LIPID, MG, CMP, DBIL, PHOS #### [facility] [address] [place] [address] Dr. Sarmad Patino EGFR-AF MARSHALLESE >60 Normal >=60 [facility] Comment on above: Performed By: #### U JUVE, LIPID, MG, CMP, DBIL, PHOS #### [facility] [address] [place] [address] Dr. Sarmad Patino EGFR-NON AF MARSHALLESE >60 Normal >=60 [facility] Comment on above: Performed By: #### U JUVE, LIPID, MG, CMP, DBIL, PHOS #### [facility] [address] [place] [address] Dr. Sarmad Patino Globulin (S) [Mass/Vol] 3.0 g/dL Normal [facility] Comment on above: Performed By: #### U JUVE, LIPID, MG, CMP, DBIL, PHOS #### [facility] [address] [place] [address] Dr. Sarmad Patino Glucose [Mass/Vol] 99 mg/dL Normal 74-106 [facility] Comment on above: Performed By: #### U JUVE, LIPID, MG, CMP, DBIL, PHOS #### [facility] [address] [place] [address] Dr. Sarmad Patino Potassium [Moles/Vol] 3.9 mmol/L Normal 3.5-5.1 [facility] Comment on above: Performed By: #### U JUVE, LIPID, MG, CMP, DBIL, PHOS #### [facility] [address] [place] [address] Dr. Sarmad Patino Protein [Mass/Vol] 7.0 g/dL Normal 6.4-8.2 [facility] Comment on above: Performed By: #### U JUVE, LIPID, MG, CMP, DBIL, PHOS #### [facility] [address] [place] [address] Dr. Sarmad Patino Sodium [Moles/Vol] 142 mmol/L Normal 136-145 [facility] Comment on above: Performed By: #### U JUEV, LIPID, MG, CMP, DBIL, PHOS #### [facility] [address] [place] [address] Dr. Sarmad Patino Urea nitrogen [Mass/Vol] 14.0 mg/dL Normal 7.0-18.0 [facility] Comment on above: Performed By: #### U JUVE, LIPID, MG, CMP, DBIL, PHOS #### [facility] [address] [place] [address] Dr. Sarmad Patino Urea nitrogen/Creatinine [Mass ratio] 17.5 mg/mg Normal [facility] Comment on above: Performed By: #### U JUVE, LIPID, MG, CMP, DBIL, PHOS #### [facility] [address] [address] [address] Sarmad Patino URIC ACID SERUMon 04-08-2022 Urate [Mass/Vol] 5.2 mg/dL Normal 2.6-6.0 [facility] Comment on above: Performed By: #### U JUVE, LIPID, MG, CMP, DBIL, PHOS #### [facility] [address] [address] [address] Sarmad Patino BK VIRUS PCR QUANTon 022 BKV DNA QUANT PCR PLASMA Negative Normal Negative [facility] Comment on above: Result Comment: No B K DNA detected. . The linear range of the assay is 22 - 100,000,000 IU/mL. Performed By: #### D DAVIDSON, MG, PHOS, CMP, LIPID, URIC #### [facility] [address] [place] [address] Dr. Sarmad Patino Log10 BKV DNA Plasma Normal [facility] Comment on above: Performed By: #### D DAVIDSON, MG, PHOS, CMP, LIPID, URIC #### [facility] [address] [place] [address] Dr. Sarmad Patino FK506 (TACROLIMUS) WHOLE BLO ODon 03-13-2022 Tacrolimus (FK506), Blood 5.0 ng/mL Normal 2.0-20.0 [facility] Comment on above: Result Comment: Trou gh (immediately following transplant) 15.0 . Trough (steady state, 2 weeks or more after transplant): 3.0 - 8.0 . Performed by LC-MS/MS technology. Performed By: #### D DAVIDSON, MG, PHOS, CMP, LIPID, URIC #### [facility] [address] [place] [address] Dr. Sarmad Patino GLYCOHEMOGLOBIN A1Con 2021 ADA RECOMMENDATION SEE BELOW Normal [facility] Comment on above: Result Comment: ADA RECOMMENDED LIMIT 4.0 - 6.0 ADA THERAPEUTIC TARGET < 7.0 ACTION SUGGESTED > 7.0 Performed By: #### D DAVIDSON, MG, PHOS, CMP, LIPID, URIC #### [facility] [address] [place] [address] Dr. Sarmad Patino Glucose [Mass/Vol] 111 mg/dL Normal [facility] Comment on above: Performed By: #### D DAVIDSON, MG, PHOS, CMP, LIPID, URIC #### [facility] [address] [place] [address] Dr. Sarmad Patino HbA1c (Bld) [Mass fraction] 5.5 % Normal 4.5-6.2 [facility] Comment on above: Performed By: #### D DAVIDSON, MG, PHOS, CMP, LIPID, URIC #### [facility] [address] [address] [address] Sarmad Patino LIVER PROFILEon 03-11-2022 Albumin [Mass/Vol] 3.7 g/dL Normal 3.4-5.0 [facility] Comment on above: Performed By: #### D DAVIDSON, MG, PHOS, CMP, LIPID, URIC #### [facility] [address] [place] [address] Dr. Sarmad Patino Albumin/Globulin [Mass ratio] 1.1 {ratio} Normal [facility] Comment on above: Performed By: #### D DAVIDSON, MG, PHOS, CMP, LIPID, URIC #### [facility] [address] [address] [address] Sarmad Patino ALP [Catalytic activity/Vol] 124 U/L Critically high 46-116 [facility] Comment on above: Performed By: #### D DAVIDSON, MG, PHOS, CMP, LIPID, URIC #### [facility] [address] [address] [address] Sarmad Patino ALT [Catalytic activity/Vol] 17 U/L Normal 14-59 [facility] Comment on above: Performed By: #### D DAVIDSON, MG, PHOS, CMP, LIPID, URIC #### [facility] [address] [address] [address] Sarmad Patino AST [Catalytic activity/Vol] 16 U/L Normal 15-37 [facility] Comment on above: Performed By: #### D DAVIDSON, MG, PHOS, CMP, LIPID, URIC #### [facility] [address] [address] [address] Sarmad Patino BILI, CONJUGATED 0.2 mg/dL Normal 0.0-0.2 [facility] Comment on above: Performed By: #### D DAVIDSON, MG, PHOS, CMP, LIPID, URIC #### [facility] [address] [place] [address] Dr. Sarmad Patino Bilirubin [Mass/Vol] 0.6 mg/dL Normal 0.2-1.0 [facility] on above: Performed By: #### D DAVIDSON, MG, PHOS, CMP, LIPID, URIC #### [facility] [address] [place] [address] Dr. Sarmad Patino Globulin (S) [Mass/Vol] 3.4 g/dL Normal [facility] on above: Performed By: #### D DAVIDSON, MG, PHOS, CMP, LIPID, URIC #### [facility] [address] [place] [address] Dr. Sarmad Patino Protein [Mass/Vol] 7.1 g/dL Normal 6.4-8.2 [facility] Comment on above: Performed By: #### D DAVIDSON, MG, PHOS, CMP, LIPID, URIC #### [facility] [address] [place] [address] Dr. Sarmad Patino MAGNESIUMon 03-11-2022 Magnesium [Mass/Vol] 1.6 mg/dL Critically low 1.8-2.4 [facility] Comment on above: Performed By: #### D DAVIDSON, MG, PHOS, CMP, LIPID, URIC #### [facility] [address] [place] [address] Dr. Sarmad Patino PHOSPHORUSon 03-11-2022 Phosphate [Mass/Vol] 3.5 mg/dL Normal 2.6-4.7 [facility] Comment on above: Performed By: #### D DAVIDSON, MG, PHOS, CMP, LIPID, URIC #### [facility] [address] [place] [address] Dr. Sarmad Patino URIC ACID SERUMon 03-11-2022 Urate [Mass/Vol] 5.3 mg/dL Normal 2.6-6.0 [facility] Comment on above: Performed By: #### D DAVIDSON, MG, PHOS, CMP, LIPID, URIC #### [facility] [address] [address] [address] Sarmad Patino MYCOPHENOLIC ACIDon 02-19-20 Mycophenolic Acid 1.5 ug/mL Normal 1.0-3.5 [facility] Comment on above: Performed By: #### D DAVIDSON, MG, PHOS, CMP, LIPID, URIC #### [facility] [address] [address] [address] Sarmad Patino Mycophenolic Acid Glucuronide 32 ug/mL Normal 15-125 [facility] Comment on above: Result Comment: [facility] 's Reference Range: 35-100 mcg/mL. Performed By: #### D DAVIDSON, MG, PHOS, CMP, LIPID, URIC #### [facility] [address] [place] [address] Dr. Sarmad Patino BK VIRUS PCR QUANTon 022 BKV DNA QUANT PCR PLASMA Negative Normal Negative [facility] Comment on above: Result Comment: No B K DNA detected. . The linear range of the assay is 22 - 100,000,000 IU/mL. Performed By: #### D DAVIDSON, MG, PHOS, CMP, LIPID, URIC #### [facility] [address] [place] [address] Dr. Sarmad Patino Log10 BKV DNA Plasma Normal [facility] Comment on above: Performed By: #### D DAVIDSON, MG, PHOS, CMP, LIPID, URIC #### [facility] [address] [place] [address] Dr. Sarmad Patino FK506 (TACROLIMUS) WHOLE BLO ODon 02-11-2022 Tacrolimus (FK506), Blood 4.4 ng/mL Normal 2.0-20.0 [facility] Comment on above: Result Comment: Trou gh (immediately following transplant) 15.0 . Trough (steady state, 2 weeks or more after transplant): 3.0 - 8.0 . Performed by LC-MS/MS technology. Performed By: #### U JUVE, LIPID, MG, CMP, DBIL, PHOS #### [facility] [address] [place] [address] Dr. Sarmad Patino BILIRUBIN CONJUGATED (DIRECT )on 02-08-2022 BILI, CONJUGATED 0.1 mg/dL Normal 0.0-0.2 [facility] Comment on above: Performed By: #### D DAVIDSON, MG, PHOS, CMP, LIPID, URIC #### [facility] [address] [place] [address] Dr. Sarmad Patino CBC AUTO DIFFon 02-08-2022 BASO # 0.0 103/ul Normal 0.0-0.1 [facility] Comment on above: Performed By: #### D DAVIDSON, MG, PHOS, CMP, LIPID, URIC #### [facility] [address] [place] [address] Dr. Sarmad Patino Basophils/100 WBC (Bld) 0.3 % Normal 0.2-2.0 [facility] Comment on above: Performed By: #### D DAVIDSON, MG, PHOS, CMP, LIPID, URIC #### [facility] [address] [place] [address] Dr. Sarmad Patino EO # 0.1 103/ul Normal 0.0-0.7 [facility] Comment on above: Performed By: #### D DAVIDSON, MG, PHOS, CMP, LIPID, URIC #### [facility] [address] [place] [address] Dr. Sarmad Patino Eosinophils/100 WBC (Bld) 1.0 % Normal 0.9-7.0 [facility] Comment on above: Performed By: #### D DAVIDSON, MG, PHOS, CMP, LIPID, URIC #### [facility] [address] [place] [address] Dr. Sarmad Patino Erythrocyte distribution width (RBC) [Ratio] 15.9 % Critically high 11.0-15.0 [facility] Comment on above: Performed By: #### D DAVIDSON, MG, PHOS, CMP, LIPID, URIC #### [facility] [address] [place] [address] Dr. Sarmad Patino Hematocrit (Bld) [Volume fraction] 42.2 % Normal 36.0-48.0 [facility] Comment on above: Performed By: #### D DAVIDSON, MG, PHOS, CMP, LIPID, URIC #### [facility] [address] [place] [address] Dr. Sarmad Patino Hemoglobin (Bld) [Mass/Vol] 13.8 g/dL Normal 12.0-16.0 [facility] Comment on above: Performed By: #### D DAVIDSON, MG, PHOS, CMP, LIPID, URIC #### [facility] [address] [place] [address] Dr. Sarmad Patino IG # 0.10 10e3/ul Critically high 0.00-0.03 [facility] Comment on above: Performed By: #### D DAVIDSON, MG, PHOS, CMP, LIPID, URIC #### [facility] [address] [place] [address] Dr. Sarmad Patino IG % 1.1 % Critically high 0.0-0.[address] [facility] Comment on above: Performed By: #### D DAVIDSON, MG, PHOS, CMP, LIPID, URIC #### [facility] [address] [place] [address] Dr. Sarmad Patino LYMPH # 1.2 103/ul Normal 1.2-3.8 [facility] Comment on above: Performed By: #### D DAVIDSON, MG, PHOS, CMP, LIPID, URIC #### [facility] [address] [place] [address] Dr. Sarmad Patino Lymphocytes/100 WBC (Bld) 12.6 % Critically low 20.5-60.0 [facility] Comment on above: Performed By: #### D DAVIDSON, MG, PHOS, CMP, LIPID, URIC #### [facility] [address] [place] [address] Dr. Sarmad Patino MANUAL DIFF REQ NO Normal [facility] Comment on above: Performed By: #### D DAVIDSON, MG, PHOS, CMP, LIPID, URIC #### [facility] [address] [place] [address] Dr. Sarmad Patino MCH (RBC) [Entitic mass] 28.3 pg Normal 26.7-34.0 [facility] Comment on above: Performed By: #### D DAVIDSON, MG, PHOS, CMP, LIPID, URIC #### [facility] [address] [place] [address] Dr. Sarmad Patino MCHC (RBC) [Mass/Vol] 32.7 g/dL Normal 29.9-35.2 [facility] Comment on above: Performed By: #### D DAVIDSON, MG, PHOS, CMP, LIPID, URIC #### [facility] [address] [place] [address] Dr. Sarmad Patino MCV (RBC) [Entitic vol] 86.7 fL Normal 81.0-99.0 [facility] Comment on above: Performed By: #### D DAVIDSON, MG, PHOS, CMP, LIPID, URIC #### [facility] [address] [place] [address] Dr. Sarmad Patino MONO # 1.0 103/ul Critically high 0.3-0.[address] [facility] Comment on above: Performed By: #### D DAVIDSON, MG, PHOS, CMP, LIPID, URIC #### [facility] [address] [place] [address] Dr. Sarmad Patino Monocytes/100 WBC (Bld) 10.7 % Normal 1.7-12.0 [facility] Comment on above: Performed By: #### D DAVIDSON, MG, PHOS, CMP, LIPID, URIC #### [facility] [address] [place] [address] Dr. Sarmad Patino NEUT # 6.9 103/ul Critically high 1.4-6.[address] [facility] Comment on above: Performed By: #### D DAVIDSON, MG, PHOS, CMP, LIPID, URIC #### [facility] [address] [place] [address] Dr. Sarmad Patino Neutrophils/100 WBC (Bld) 74.3 % Normal 43.0-75.0 [facility] Comment on above: Performed By: #### D DAVIDSON, MG, PHOS, CMP, LIPID, URIC #### [facility] [address] [place] [address] Dr. Sarmad Patino Platelet mean volume (Bld) [Entitic vol] 11.1 fL Normal 9.5-13.5 [facility] Comment on above: Performed By: #### D DAVIDSON, MG, PHOS, CMP, LIPID, URIC #### [facility] [address] [address] [address] Sarmad Patino PLT 307 103/ul Normal 150-450 [facility] Comment on above: Performed By: #### D DAVIDSON, MG, PHOS, CMP, LIPID, URIC #### [facility] [address] [address] [address] Sarmad Patino RBC 4.87 106/ul Normal 4.20-5.40 [facility] Comment on above: Performed By: #### D DAVIDSON, MG, PHOS, CMP, LIPID, URIC #### [facility] [address] [place] [address] Dr. Sarmad Patino WBC 9.3 103/ul Normal 4.0-11.0 [facility] Comment on above: Performed By: #### D DAVIDSON, MG, PHOS, CMP, LIPID, URIC #### [facility] [address] [place] [address] Dr. Sarmad Patino GLYCOHEMOGLOBIN A1Con 2021 ADA RECOMMENDATION SEE BELOW Normal [facility] Comment on above: Result Comment: ADA RECOMMENDED LIMIT 4.0 - 6.0 ADA THERAPEUTIC TARGET < 7.0 ACTION SUGGESTED > 7.0 Performed By: #### D DAVIDSON, MG, PHOS, CMP, LIPID, URIC #### [facility] [address] [place] [address] Dr. Sarmad Patino Glucose [Mass/Vol] 134 mg/dL Normal [facility] Comment on above: Performed By: #### D DAVIDSON, MG, PHOS, CMP, LIPID, URIC #### [facility] [address] [place] [address] Dr. Sarmad Patino HbA1c (Bld) [Mass fraction] 6.3 % Critically high 4.5-6.2 [facility] Comment on above: Performed By: #### D DAVIDSON, MG, PHOS, CMP, LIPID, URIC #### [facility] [address] [place] [address] Dr. Sarmad Patino LIPID PROFILEon 02-08-2022 CHOL-HDL RATIO NORM SEE BELOW Normal [facility] Comment on above: Result Comment: 3.3 - 4.4 LOW RISK 4.4 - 7.1 AVERAGE RISK 7.1 - 11.0 MODERATE RISK >11.0 HIGH RISK Performed By: #### D DAVIDSON, MG, PHOS, CMP, LIPID, URIC #### [facility] [address] [address] [address] Sarmad Patino Cholesterol [Mass/Vol] 180 mg/dL Normal <=200 [facility] Comment on above: Performed By: #### D DAVIDSON, MG, PHOS, CMP, LIPID, URIC #### [facility] [address] [address] [address] Sarmad Patino Cholesterol in HDL [Mass/Vol] 58 mg/dL Normal 40-60 [facility] Comment on above: Performed By: #### D DAVIDSON, MG, PHOS, CMP, LIPID, URIC #### [facility] [address] [address] [address] Sarmad Patino Cholesterol in LDL [Mass/Vol] 86.6 mg/dL Normal [facility] Comment on above: Performed By: #### D DAVIDSON, MG, PHOS, CMP, LIPID, URIC #### [facility] [address] [address] [address] Sarmad Patino Cholesterol.total/Cho lesterol in HDL [Mass ratio] 3.1 {ratio} Normal [facility] Comment on above: Performed By: #### D DAVIDSON, MG, PHOS, CMP, LIPID, URIC #### [facility] [address] [address] [address] Sarmad Patino HDL NORMAL > or = 60 mg/dl - LO W CARDIOVASCULAR RISK <40 mg/dl - HIGH CARDIOVASCULAR RISK Normal [facility] Comment on above: Performed By: #### D DAVIDSON, MG, PHOS, CMP, LIPID, URIC #### [facility] [address] [address] [address] Sarmad Patino LDL CALC NORMAL SEE BELOW Normal [facility] Comment on above: Result Comment: <100 mg/dl OPTIMAL 100 - 129 mg/dl NEAR OR ABOVE OPTIMAL 130 - 159 mg/dl BORDERLINE HIGH 160 - 189 mg/dl HIGH >190 mg/dl VERY HIGH Performed By: #### D DAVIDSON, MG, PHOS, CMP, LIPID, URIC #### [facility] [address] [place] [address] Dr. Sarmad Patino Triglyceride [Mass/Vol] 177 mg/dL Critically high <=150 [facility] Comment on above: Performed By: #### D DAVIDSON, MG, PHOS, CMP, LIPID, URIC #### [facility] [address] [place] [address] Dr. Sarmad Patino VLDL CALC 35.4 mg/dL Normal [facility] Comment on above: Performed By: #### D DAVIDSON, MG, PHOS, CMP, LIPID, URIC #### [facility] [address] [place] [address] Dr. Sarmad Patino MAGNESIUMon 02-08-2022 Magnesium [Mass/Vol] 1.8 mg/dL Normal 1.8-2.4 [facility] Comment on above: Performed By: #### D DAVIDSON, MG, PHOS, CMP, LIPID, URIC #### [facility] [address] [place] [address] Dr. Sarmad Patino PHOSPHORUSon 02-08-2022 Phosphate [Mass/Vol] 3.3 mg/dL Normal 2.6-4.7 [facility] Comment on above: Performed By: #### D DAVIDSON, MG, PHOS, CMP, LIPID, URIC #### [facility] [address] [place] [address] Dr. Sarmad Patino PROF 14(COMP METB)on 022 Albumin [Mass/Vol] 3.8 g/dL Normal 3.4-5.0 [facility] Comment on above: Performed By: #### D DAVIDSON, MG, PHOS, CMP, LIPID, URIC #### [facility] [address] [place] [address] Dr. Sarmad Patino Albumin/Globulin [Mass ratio] 1.3 {ratio} Normal [facility] Comment on above: Performed By: #### D DAVIDSON, MG, PHOS, CMP, LIPID, URIC #### [facility] [address] [address] [address] Sarmad Patino ALP [Catalytic activity/Vol] 144 U/L Critically high 46-116 [facility] Comment on above: Performed By: #### D DAVIDSON, MG, PHOS, CMP, LIPID, URIC #### [facility] [address] [address] [address] Sarmad Patino ALT [Catalytic activity/Vol] 24 U/L Normal 14-59 [facility] Comment on above: Performed By: #### D DAVIDSON, MG, PHOS, CMP, LIPID, URIC #### [facility] [address] [address] [address] Sarmad Patino Anion gap [Moles/Vol] 13.7 mmol/L Normal Th e [facility] Comment on above: Performed By: #### D DAVIDSON, MG, PHOS, CMP, LIPID, URIC #### [facility] [address] [place] [address] Dr. Sarmad Patino AST [Catalytic activity/Vol] 19 U/L Normal 15-37 [facility] Comment on above: Performed By: #### D DAVIDSON, MG, PHOS, CMP, LIPID, URIC #### [facility] [address] [place] [address] Dr. Sarmad Patino Bilirubin [Mass/Vol] 0.5 mg/dL Normal 0.2-1.0 [facility] Comment on above: Performed By: #### D DAVIDSON, MG, PHOS, CMP, LIPID, URIC #### [facility] [address] [place] [address] Dr. Sarmad Patino Calcium [Mass/Vol] 9.6 mg/dL Normal 8.5-10.1 [facility] Comment on above: Performed By: #### D DAVIDSON, MG, PHOS, CMP, LIPID, URIC #### [facility] [address] [place] [address] Dr. Sarmad Patino Chloride [Moles/Vol] 103 mmol/L Normal 98-107 [facility] Comment on above: Performed By: #### D DAVIDSON, MG, PHOS, CMP, LIPID, URIC #### [facility] [address] [address] [address] Sarmad Patino CO2 [Moles/Vol] 26.6 mmol/L Normal 21.0-32.0 [facility] Comment on above: Performed By: #### D DAVIDSON, MG, PHOS, CMP, LIPID, URIC #### [facility] [address] [address] [address] Sarmad Patino Creatinine [Mass/Vol] 0.75 mg/dL Normal 0.55-1.02 [facility] Comment on above: Performed By: #### D DAVIDSON, MG, PHOS, CMP, LIPID, URIC #### [facility] [address] [place] [address] Dr. Sarmad Patino EGFR-AF MARSHALLESE >60 Normal >=60 [facility] Comment on above: Performed By: #### D DAVIDSON, MG, PHOS, CMP, LIPID, URIC #### [facility] [address] [place] [address] Dr. Sarmad Patino EGFR-NON AF MARSHALLESE >60 Normal >=60 [facility] Comment on above: Performed By: #### D DAVIDSON, MG, PHOS, CMP, LIPID, URIC #### [facility] [address] [place] [address] Dr. Sarmad Patino Globulin (S) [Mass/Vol] 3.0 g/dL Normal [facility] Comment on above: Performed By: #### D DAVIDSON, MG, PHOS, CMP, LIPID, URIC #### [facility] [address] [place] [address] Dr. Sarmad Patino Glucose [Mass/Vol] 99 mg/dL Normal 74-106 [facility] Comment on above: Performed By: #### D DAVIDSON, MG, PHOS, CMP, LIPID, URIC #### [facility] [address] [place] [address] Dr. Sarmad Patino Potassium [Moles/Vol] 4.3 mmol/L Normal 3.5-5.1 [facility] Comment on above: Performed By: #### D DAVIDSON, MG, PHOS, CMP, LIPID, URIC #### [facility] [address] [place] [address] Dr. Sarmad aPtino Protein [Mass/Vol] 6.8 g/dL Normal 6.4-8.2 [facility] Comment on above: Performed By: #### D DAVIDSON, MG, PHOS, CMP, LIPID, URIC #### [facility] [address] [place] [address] Dr. Sarmad Patino Sodium [Moles/Vol] 139 mmol/L Normal 136-145 [facility] Comment on above: Performed By: #### D DAVIDSON, MG, PHOS, CMP, LIPID, URIC #### [facility] [address] [address] [address] Sarmad Patino Urea nitrogen [Mass/Vol] 16.0 mg/dL Normal 7.0-18.0 [facility] Comment on above: Performed By: #### D DAVIDSON, MG, PHOS, CMP, LIPID, URIC #### [facility] [address] [place] [address] Dr. Sarmad Patino Urea nitrogen/Creatinine [Mass ratio] 21.3 mg/mg Normal [facility] Comment on above: Performed By: #### D DAVIDSON, MG, PHOS, CMP, LIPID, URIC #### [facility] [address] [place] [address] Dr. Sarmad Patino URIC ACID SERUMon 02-08-2022 Urate [Mass/Vol] 5.4 mg/dL Normal 2.6-6.0 [facility] Comment on above: Performed By: #### D DAVIDSON, MG, PHOS, CMP, LIPID, URIC #### [facility] [address] [place] [address] Dr. Sarmad Patino BK VIRUS PCR QUANTon 022 BKV DNA QUANT PCR PLASMA 27 IU/mL Normal Negative The [facility] Comment on above: Result Comment: The linear range of the assay is 22 - 100,000,000 IU/mL. Performed By: #### D DAVIDSON, MG, PHOS, CMP, LIPID, URIC #### [facility] [address] [place] [address] Dr. Sarmad Patino Log10 BKV DNA Plasma 1.431 log10 IU/mL Normal The [facility] Comment on above: Performed By: #### D DAVIDSON, MG, PHOS, CMP, LIPID, URIC #### [facility] [address] [address] [address] Sarmad Patino FK506 (TACROLIMUS) WHOLE BLO ODon 01-30-2022 Tacrolimus (FK506), Blood 6.5 ng/mL Normal 2.0-20.0 [facility] Comment on above: Result Comment: Trou gh (immediately following transplant) 15.0 . Trough (steady state, 2 weeks or more after transplant): 3.0 - 8.0 . Performed by LC-MS/MS technology. Performed By: #### D DAVIDSON, MG, PHOS, CMP, LIPID, URIC #### [facility] [address] [place] [address] Dr. Sarmad Patino RAPAMUNE(SIROLIMUS)on 2021 Rapamune(Sirolimus), whole blood 9.9 ng/mL Normal 3.0-20.0 [facility] Comment on above: Result Comment: Perf ormed by LC/MS-MS technology . This test was developed and its performance characteristics determined by [employer]. It has not been cleared or approved by the Food and Drug Administration. Performed By: #### D DAVIDSON, MG, PHOS, CMP, LIPID, URIC #### [facility] [address] [place] [address] Dr. Sarmad Patino BILIRUBIN CONJUGATED (DIRECT )on 01-28-2022 BILI, CONJUGATED 0.1 mg/dL Normal 0.0-0.2 [facility] Comment on above: Performed By: #### D DAVIDSON, MG, PHOS, CMP, LIPID, URIC #### [facility] [address] [address] [address] Sarmad Patnio CBC AUTO DIFFon 01-28-2022 BASO # 0.0 103/ul Normal 0.0-0.1 [facility] Comment on above: Performed By: #### D DAVIDSON, MG, PHOS, CMP, LIPID, URIC #### [facility] [address] [place] [address] Dr. Sarmad Patino Basophils/100 WBC (Bld) 0.3 % Normal 0.2-2.0 [facility] Comment on above: Performed By: #### D DAVIDSON, MG, PHOS, CMP, LIPID, URIC #### [facility] [address] [place] [address] Dr. Sarmad Patino EO # 0.2 103/ul Normal 0.0-0.7 [facility] Comment on above: Performed By: #### D DAVIDSON, MG, PHOS, CMP, LIPID, URIC #### [facility] [address] [place] [address] Dr. Sarmad Patino Eosinophils/100 WBC (Bld) 3.1 % Normal 0.9-7.0 [facility] Comment on above: Performed By: #### D DAVIDSON, MG, PHOS, CMP, LIPID, URIC #### [facility] [address] [place] [address] Dr. Sarmad Patino Erythrocyte distribution width (RBC) [Ratio] 15.4 % Critically high 11.0-15.0 [facility] Comment on above: Performed By: #### D DAVIDSON, MG, PHOS, CMP, LIPID, URIC #### [facility] [address] [place] [address] Dr. Sarmad Patino Hematocrit (Bld) [Volume fraction] 42.6 % Normal 36.0-48.0 [facility] Comment on above: Performed By: #### D DAVIDSON, MG, PHOS, CMP, LIPID, URIC #### [facility] [address] [place] [address] Dr. Sarmad Patino Hemoglobin (Bld) [Mass/Vol] 14.0 g/dL Normal 12.0-16.0 [facility] Comment on above: Performed By: #### D DAVIDSON, MG, PHOS, CMP, LIPID, URIC #### [facility] [address] [place] [address] Dr. Sarmad Patino IG # 0.05 10e3/ul Critically high 0.00-0.03 [facility] Comment on above: Performed By: #### D DAVIDSON, MG, PHOS, CMP, LIPID, URIC #### [facility] [address] [place] [address] Dr. Sarmad Patino IG % 0.7 % Critically high 0.0-0.[address] [facility] Comment on above: Performed By: #### D DAVIDSON, MG, PHOS, CMP, LIPID, URIC #### [facility] [address] [place] [address] Dr. Sarmad Patino LYMPH # 1.1 103/ul Critically low 1.2-3.8 [facility] Comment on above: Performed By: #### D DAVIDSON, MG, PHOS, CMP, LIPID, URIC #### [facility] [address] [place] [address] Dr. Sarmad Patino Lymphocytes/100 WBC (Bld) 15.8 % Critically low 20.5-60.0 [facility] Comment on above: Performed By: #### D DAVIDSON, MG, PHOS, CMP, LIPID, URIC #### [facility] [address] [place] [address] Dr. Sarmad Patino MANUAL DIFF REQ NO Normal [facility] Comment on above: Performed By: #### D DAVIDSON, MG, PHOS, CMP, LIPID, URIC #### [facility] [address] [place] [address] Dr. Sarmad Patino MCH (RBC) [Entitic mass] 28.3 pg Normal 26.7-34.0 [facility] Comment on above: Performed By: #### D DAVIDSON, MG, PHOS, CMP, LIPID, URIC #### [facility] [address] [place] [address] Dr. Sarmad Patino MCHC (RBC) [Mass/Vol] 32.9 g/dL Normal 29.9-35.2 [facility] Comment on above: Performed By: #### D DAVIDSON, MG, PHOS, CMP, LIPID, URIC #### [facility] [address] [place] [address] Dr. Sarmad Patino MCV (RBC) [Entitic vol] 86.2 fL Normal 81.0-99.0 [facility] Comment on above: Performed By: #### D DAVIDSON, MG, PHOS, CMP, LIPID, URIC #### [facility] [address] [place] [address] Dr. Sarmad Patino MONO # 0.8 103/ul Normal 0.3-0.8 [facility] Comment on above: Performed By: #### D DAVIDSON, MG, PHOS, CMP, LIPID, URIC #### [facility] [address] [place] [address] Dr. Sarmad Patino Monocytes/100 WBC (Bld) 11.0 % Normal 1.7-12.0 [facility] Comment on above: Performed By: #### D DAVIDSON, MG, PHOS, CMP, LIPID, URIC #### [facility] [address] [place] [address] Dr. Sarmad Patino NEUT # 4.8 103/ul Normal 1.4-6.5 [facility] Comment on above: Performed By: #### D DAVIDSON, MG, PHOS, CMP, LIPID, URIC #### [facility] [address] [place] [address] Dr. Sarmad Patino Neutrophils/100 WBC (Bld) 69.1 % Normal 43.0-75.0 [facility] Comment on above: Performed By: #### D DAVIDSON, MG, PHOS, CMP, LIPID, URIC #### [facility] [address] [place] [address] Dr. Sarmad Patino Platelet mean volume (Bld) [Entitic vol] 10.8 fL Normal 9.5-13.5 [facility] Comment on above: Performed By: #### D DAVIDSON, MG, PHOS, CMP, LIPID, URIC #### [facility] [address] [place] [address] Dr. Sarmad Patino PLT 208 103/ul Normal 150-450 [facility] Comment on above: Performed By: #### D DAVIDSON, MG, PHOS, CMP, LIPID, URIC #### [facility] [address] [place] [address] Dr. Sarmad Patino RBC 4.94 106/ul Normal 4.20-5.40 [facility] Comment on above: Performed By: #### D DAVIDSON, MG, PHOS, CMP, LIPID, URIC #### [facility] [address] [place] [address] Dr. Sarmad Patino WBC 7.0 103/ul Normal 4.0-11.0 [facility] Comment on above: Performed By: #### D DAVIDSON, MG, PHOS, CMP, LIPID, URIC #### [facility] [address] [address] [address] Sarmad Patino GLYCOHEMOGLOBIN A1Con 2021 ADA RECOMMENDATION SEE BELOW Normal [facility] Comment on above: Result Comment: ADA RECOMMENDED LIMIT 4.0 - 6.0 ADA THERAPEUTIC TARGET < 7.0 ACTION SUGGESTED > 7.0 Performed By: #### D DAVIDSON, MG, PHOS, CMP, LIPID, URIC #### [facility] [address] [address] [address] Sarmad Patino Glucose [Mass/Vol] 137 mg/dL Normal [facility] Comment on above: Performed By: #### D DAVIDSON, MG, PHOS, CMP, LIPID, URIC #### [facility] [address] [address] [address] Sarmad Patino HbA1c (Bld) [Mass fraction] 6.4 % Critically high 4.5-6.2 [facility] Comment on above: Performed By: #### D DAVIDSON, MG, PHOS, CMP, LIPID, URIC #### [facility] [address] [address] [address] Sarmad Patino LIPID PROFILEon 01-28-2022 CHOL-HDL RATIO NORM SEE BELOW Normal [facility] Comment on above: Result Comment: 3.3 - 4.4 LOW RISK 4.4 - 7.1 AVERAGE RISK 7.1 - 11.0 MODERATE RISK >11.0 HIGH RISK Performed By: #### D DAVIDSON, MG, PHOS, CMP, LIPID, URIC #### [facility] [address] [address] [address] Sarmad Patino Cholesterol [Mass/Vol] 209 mg/dL Critically high <=200 [facility] Comment on above: Performed By: #### D DAVIDSON, MG, PHOS, CMP, LIPID, URIC #### [facility] [address] [address] [address] Sarmad Patino Cholesterol in HDL [Mass/Vol] 59 mg/dL Normal 40-60 [facility] Comment on above: Performed By: #### D DAVIDSON, MG, PHOS, CMP, LIPID, URIC #### [facility] [address] [address] [address] Sarmad Patino Cholesterol in LDL [Mass/Vol] 100.4 mg/dL Normal [facility] Comment on above: Performed By: #### D DAVIDSON, MG, PHOS, CMP, LIPID, URIC #### [facility] [address] [address] [address] Sarmad Patino Cholesterol.total/Cho lesterol in HDL [Mass ratio] 3.5 {ratio} Normal [facility] Comment on above: Performed By: #### D DAVIDSON, MG, PHOS, CMP, LIPID, URIC #### [facility] [address] [place] [address] Dr. Sarmad Patino HDL NORMAL > or = 60 mg/dl - LO W CARDIOVASCULAR RISK <40 mg/dl - HIGH CARDIOVASCULAR RISK Normal [facility] Comment on above: Performed By: #### D DAVIDSON, MG, PHOS, CMP, LIPID, URIC #### [facility] [address] [address] [address] Sarmad Patino LDL CALC NORMAL SEE BELOW Normal [facility] Comment on above: Result Comment: <100 mg/dl OPTIMAL 100 - 129 mg/dl NEAR OR ABOVE OPTIMAL 130 - 159 mg/dl BORDERLINE HIGH 160 - 189 mg/dl HIGH >190 mg/dl VERY HIGH Performed By: #### D DAVIDSON, MG, PHOS, CMP, LIPID, URIC #### [facility] [address] [address] [address] Sarmad Patino Triglyceride [Mass/Vol] 248 mg/dL Critically high <=150 [facility] Comment on above: Performed By: #### D DAVIDSON, MG, PHOS, CMP, LIPID, URIC #### [facility] [address] [address] [address] Sarmad Patino VLDL CALC 49.6 mg/dL Normal [facility] Comment on above: Performed By: #### D DAVIDSON, MG, PHOS, CMP, LIPID, URIC #### [facility] [address] [address] [address] Sarmad Patino MAGNESIUMon 01-28-2022 Magnesium [Mass/Vol] 1.6 mg/dL Critically low 1.8-2.4 [facility] Comment on above: Performed By: #### D DAVIDSON, MG, PHOS, CMP, LIPID, URIC #### [facility] [address] [address] [address] Sarmad Patino PHOSPHORUSon 01-28-2022 Phosphate [Mass/Vol] 2.7 mg/dL Normal 2.6-4.7 [facility] Comment on above: Performed By: #### D DAVDISON, MG, PHOS, CMP, LIPID, URIC #### [facility] [address] [place] [address] Dr. Sarmad Patino PROF 14(COMP METB)on 022 Albumin [Mass/Vol] 3.3 g/dL Critically low 3.4-5.0 [facility] Comment on above: Performed By: #### D DAVIDSON, MG, PHOS, CMP, LIPID, URIC #### [facility] [address] [place] [address] Dr. Sarmad Patino Albumin/Globulin [Mass ratio] 0.9 {ratio} Normal [facility] Comment on above: Performed By: #### D DAVIDSON, MG, PHOS, CMP, LIPID, URIC #### [facility] [address] [place] [address] Dr. Sarmad Patino ALP [Catalytic activity/Vol] 124 U/L Critically high 46-116 [facility] Comment on above: Performed By: #### D DAVIDSON, MG, PHOS, CMP, LIPID, URIC #### [facility] [address] [place] [address] Dr. Sarmad Patino ALT [Catalytic activity/Vol] 28 U/L Normal 14-59 [facility] Comment on above: Performed By: #### D DAVIDSON, MG, PHOS, CMP, LIPID, URIC #### [facility] [address] [place] [address] Dr. Samrad Patino Anion gap [Moles/Vol] 12.0 mmol/L Normal [facility] Comment on above: Performed By: #### D DAVIDSON, MG, PHOS, CMP, LIPID, URIC #### [facility] [address] [address] [address] Sarmad Patino AST [Catalytic activity/Vol] 20 U/L Normal 15-37 [facility] Comment on above: Performed By: #### D DAVIDSON, MG, PHOS, CMP, LIPID, URIC #### [facility] [address] [address] [address] Sarmad Patino Bilirubin [Mass/Vol] 0.5 mg/dL Normal 0.2-1.0 [facility] Comment on above: Performed By: #### D DAVIDSON, MG, PHOS, CMP, LIPID, URIC #### [facility] [address] [place] [address] Dr. Sarmad Patino Calcium [Mass/Vol] 9.1 mg/dL Normal 8.5-10.1 [facility] Comment on above: Performed By: #### D DAVIDSON, MG, PHOS, CMP, LIPID, URIC #### [facility] [address] [place] [address] Dr. Sarmad Patino Chloride [Moles/Vol] 104 mmol/L Normal 98-107 [facility] Comment on above: Performed By: #### D DAVIDSON, MG, PHOS, CMP, LIPID, URIC #### [facility] [address] [place] [address] Dr. Sarmad Patino CO2 [Moles/Vol] 25.7 mmol/L Normal 21.0-32.0 [facility] Comment on above: Performed By: #### D DAVIDSON, MG, PHOS, CMP, LIPID, URIC #### [facility] [address] [place] [address] Dr. Sarmad Patino Creatinine [Mass/Vol] 0.77 mg/dL Normal 0.55-1.02 [facility] Comment on above: Performed By: #### D DAVIDSON, MG, PHOS, CMP, LIPID, URIC #### [facility] [address] [place] [address] Dr. Sarmad Patino EGFR-AF MARSHALLESE >60 Normal >=60 [facility] Comment on above: Performed By: #### D DAVIDSON, MG, PHOS, CMP, LIPID, URIC #### [facility] [address] [address] [address] Sarmad Patino EGFR-NON AF MARSHALLESE >60 Normal >=60 [facility] Comment on above: Performed By: #### D DAVIDSON, MG, PHOS, CMP, LIPID, URIC #### [facility] [address] [address] [address] Sarmad Patino Globulin (S) [Mass/Vol] 3.7 g/dL Normal [facility] Comment on above: Performed By: #### D DAVIDSON, MG, PHOS, CMP, LIPID, URIC #### [facility] [address] [address] [address] Sarmad Patino Glucose [Mass/Vol] 108 mg/dL Critically high 74-[address] [facility] Comment on above: Performed By: #### D DAVIDSON, MG, PHOS, CMP, LIPID, URIC #### [facility] [address] [address] [address] Sarmad Patino Potassium [Moles/Vol] 3.7 mmol/L Normal 3.5-5.1 [facility] Comment on above: Performed By: #### D DAVIDSON, MG, PHOS, CMP, LIPID, URIC #### [facility] [address] [address] [address] Sarmad Patino Protein [Mass/Vol] 7.0 g/dL Normal 6.4-8.2 The [facility] Comment on above: Performed By: #### D DAVIDSON, MG, PHOS, CMP, LIPID, URIC #### [facility] [address] [address] [address] Sarmad Patino Sodium [Moles/Vol] 138 mmol/L Normal 136-145 [facility] Comment on above: Performed By: #### D DAVIDSON, MG, PHOS, CMP, LIPID, URIC #### [facility] [address] [address] [address] Sarmad Patino Urea nitrogen [Mass/Vol] 15.0 mg/dL Normal 7.0-18.0 [facility] Comment on above: Performed By: #### D DAVIDSON, MG, PHOS, CMP, LIPID, URIC #### [facility] [address] [address] [address] Sarmad Patino Urea nitrogen/Creatinine [Mass ratio] 19.5 mg/mg Normal [facility] Comment on above: Performed By: #### D DAVIDSON, MG, PHOS, CMP, LIPID, URIC #### [facility] [address] [address] [address] Sarmad Patino URIC ACID SERUMon 01-28-2022 Urate [Mass/Vol] 4.3 mg/dL Normal 2.6-6.0 [facility] Comment on above: Performed By: #### D DAVIDSON, MG, PHOS, CMP, LIPID, URIC #### [facility] [address] [address] [address] Sarmad Patino Quick Strepon 01-12-2022 S. pyogenes Org specific cx Ql (Throat) Negative [facility] [employer] Other Quick Strep [facility] Other XR CHEST 1 Von 01-07-2022 XR [...] ARTEMIO BERNARD Date: 2022-01-07 15:00 Normal The [facility] CBC W MANUAL DIFFon 01-04-20 22 ATYPICAL LYMPH # 1.40 103/ul Normal The [facility] Comment on above: Performed By: #### D DAVIDSON, MG, PHOS, CMP, LIPID, URIC #### [facility] [address] [address] [address] Sarmad Patino ATYPICAL LYMPH % 10 % Normal [facility] Comment on above: Performed By: #### D DAVIDSON, MG, PHOS, CMP, LIPID, URIC #### [facility] [address] [address] [address] Sarmad Patino BAND # 0.6 103/ul Critically high 0.0-0.3 [facility] Comment on above: Performed By: #### D DAVIDSON, MG, PHOS, CMP, LIPID, URIC #### [facility] [address] [address] [address] Sarmad Patino BAND % 4 % Normal 0-5 [facility] Comment on above: Performed By: #### D DAVIDSON, MG, PHOS, CMP, LIPID, URIC #### [facility] [address] [place] [address] Dr. Sarmad Patino BASOM # 0.00 103/ul Normal 0.00-0.10 The [facility] Comment on above: Performed By: #### D DAVIDSON, MG, PHOS, CMP, LIPID, URIC #### [facility] [address] [address] [address] Sarmad Patino BASOM % 0.0 % Critically low 0.2-2.0 The [facility] Comment on above: Performed By: #### D DAVIDSON, MG, PHOS, CMP, LIPID, URIC #### [facility] [address] [place] [address] Dr. Sarmad Patino BLAST # Normal The [facility] Comment on above: Performed By: #### D DAVIDSON, MG, PHOS, CMP, LIPID, URIC #### [facility] [address] [address] [address] Sarmad Patino BLAST % Normal The [facility] Comment on above: Performed By: #### D DAVIDSON, MG, PHOS, CMP, LIPID, URIC #### [facility] [address] [place] [address] Dr. Sarmad Patino CORRECTED WBC Normal 4.0-11.0 The [facility] Comment on above: Performed By: #### D DAVIDSON, MG, PHOS, CMP, LIPID, URIC #### [facility] [address] [address] [address] Sarmad Patino EOS # 0.14 103/ul Normal 0.00-0.70 [facility] Comment on above: Performed By: #### D DVAIDSON, MG, PHOS, CMP, LIPID, URIC #### [facility] [address] [address] [address] Sarmad Patino EOS% 1.0 % Normal 0.9-7.0 [facility] Comment on above: Performed By: #### D DAVIDSON, MG, PHOS, CMP, LIPID, URIC #### [facility] [address] [place] [address] Dr. Sarmad Patino HCT 42.8 % Normal 36.0-48.0 [facility] Comment on above: Performed By: #### D DAVIDSON, MG, PHOS, CMP, LIPID, URIC #### [facility] [address] [place] [address] Dr. Sarmad Patino HGB 14.2 g/dl Normal 12.0-16.0 [facility] Comment on above: Performed By: #### D DAVIDSON, MG, PHOS, CMP, LIPID, URIC #### [facility] [address] [place] [address] Dr. Sarmad Patino LYMPHM # 0.00 103/ul Critically low 1.20-3.80 [facility] Comment on above: Performed By: #### D DAVIDSON, MG, PHOS, CMP, LIPID, URIC #### [facility] [address] [place] [address] Dr. Sarmad Patino LYMPHM% 0.0 % Critically low 20.5-60.0 [facility] Comment on above: Performed By: #### D DAVIDSON, MG, PHOS, CMP, LIPID, URIC #### [facility] [address] [place] [address] Dr. Sarmad Patino MCH 28.8 pg Normal 26.7-34.0 [facility] Comment on above: Performed By: #### D DAVIDSON, MG, PHOS, CMP, LIPID, URIC #### [facility] [address] [place] [address] Dr. Sarmad Patino MCHC 33.2 g/dl Normal 29.9-35.2 [facility] Comment on above: Performed By: #### D DAVIDSON, MG, PHOS, CMP, LIPID, URIC #### [facility] [address] [address] [address] Sarmad Patino MCV 86.8 fL Normal 81.0-99.0 [facility] Comment on above: Performed By: #### D DAVIDSON, MG, PHOS, CMP, LIPID, URIC #### [facility] [address] [address] [address] Sarmad Patino METAMYELOCYTE # Normal [facility] Comment on above: Performed By: #### D DAVIDSON, MG, PHOS, CMP, LIPID, URIC #### [facility] [address] [place] [address] Dr. Sarmad Patino METAMYELOCYTE % Normal [facility] Comment on above: Performed By: #### D DAVIDSON, MG, PHOS, CMP, LIPID, URIC #### [facility] [address] [place] [address] Dr. Sarmad Patino MONOM# 0.84 103/ul Critically high 0.30-0.80 [facility] Comment on above: Performed By: #### D DAVIDSON, MG, PHOS, CMP, LIPID, URIC #### [facility] [address] [address] [address] Sarmad Patino MONOM% 6.0 % Normal 1.7-12.0 [facility] Comment on above: Performed By: #### D DAVIDSON, MG, PHOS, CMP, LIPID, URIC #### [facility] [address] [address] [address] Sarmad Patino MPV 11.5 fL Normal 9.5-13.5 The [facility] Comment on above: Performed By: #### D DAVIDSON, MG, PHOS, CMP, LIPID, URIC #### [facility] [address] [address] [address] Sarmad Patino MYELOCYTE # 0.3 103/ul Normal [facility] Comment on above: Performed By: #### D DAVIDSON, MG, PHOS, CMP, LIPID, URIC #### [facility] [address] [address] [address] Sarmad Patino MYELOCYTE % 2 % Normal [facility] Comment on above: Performed By: #### D DAVIDSON, MG, PHOS, CMP, LIPID, URIC #### [facility] [address] [address] [address] Sarmad Patino NRBC Normal [facility] Comment on above: Performed By: #### D DAVIDSON, MG, PHOS, CMP, LIPID, URIC #### [facility] [address] [address] [address] Sarmad Patino PLT 180 103/ul Normal 150-450 [facility] Comment on above: Performed By: #### D DAVIDSON, MG, PHOS, CMP, LIPID, URIC #### [facility] [address] [place] [address] Dr. Sarmad Patino RBC 4.93 106/ul Normal 4.20-5.40 [facility] Comment on above: Performed By: #### D DAVIDSON, MG, PHOS, CMP, LIPID, URIC #### [facility] [address] [address] [address] Sarmad Patino RDW 13.9 % Normal 11.0-15.0 [facility] Comment on above: Performed By: #### D DAVIDSON, MG, PHOS, CMP, LIPID, URIC #### [facility] [address] [address] [address] Sarmad Patino SEG # 10.78 103/ul Critically high 1.40-6.50 [facility] Comment on above: Performed By: #### D DAVIDSON, MG, PHOS, CMP, LIPID, URIC #### [facility] [address] [address] [address] Sarmad Patino SEG % 77.0 % Critically high 43.0-75.0 [facility] Comment on above: Performed By: #### D DAVIDSON, MG, PHOS, CMP, LIPID, URIC #### [facility] [address] [address] [address] Sarmad Patino WBC 14.0 103/ul Critically high 4.0-11.0 [facility] Comment on above: Performed By: #### D DAVIDSON, MG, PHOS, CMP, LIPID, URIC #### [facility] [address] [address] [address] NECK ST W [...] middle ear cavities clear. Skull base intact. [employer] spaces normal. Parotid glands normal. Submandibular glands [...] 10:40 Normal The [facility] Covid-19 PCR (CVDTB)on SARS-CoV-2 (COVID-19) RNA MURALI+probe Ql (Unsp spec) Detected Critically abnormal NOT DETECTED The [facility] Comment on above: Result Comment: This test is not yet approved or cleared by the [place] FDA. When there are no FDA-approved or cleared tests available, and other criteria are met, FDA can make tests available under an emergency access mechanism called an Emergency Use Authorization (EUA). The EUA for this test is supported by the [place] of Health and Human Service's declaration that [...] LIPID, URIC #### [facility] [address] [address] [address] Sarmad Patino GROUP A STREP CULTUREon S. pyogenes Ag Ql (Unsp spec) Culture Observations: Negative for Group A Streptococcus Normal The [facility] Comment on above: Performed By: #### U JUVE, LIPID, MG, CMP, DBIL, PHOS #### [facility] [address] [address] [address] aSrmad Patino INFLUENZA A AND B AGon 01-03 INFLUENZA A AG Negative Normal NEGATIVE SEE COMMENT The [facility] Comment on above: Performed By: #### D DAVIDSON, MG, PHOS, CMP, LIPID, URIC #### [facility] [address] [address] [address] Sarmad Patino INFLUENZA B AG Negative Normal NEGATIVE SEE COMMENT The [facility] Comment on above: Performed By: #### D DAVIDSON, MG, PHOS, CMP, LIPID, URIC #### [facility] [address] [address] [address] Sarmad Patino INTERNAL CONTROLS Within Normal Limits Normal Wi thin Normal Limits The [facility] Comment on above: Performed By: #### D DAVIDSON, MG, PHOS, CMP, LIPID, URIC #### [facility] [address] [address] [address] Sarmad Patino PROF 14(COMP METB)on 10-06-2 022 Albumin [Mass/Vol] 2.5 g/dL Critically low 3.4-5.0 Th e [facility] Comment on above: Performed By: #### U JUVE, LIPID, MG, CMP, DBIL, PHOS #### [facility] [address] [place] [address] Dr. Sarmad Patino Albumin/Globulin [Mass ratio] 0.5 {ratio} Normal [facility] Comment on above: Performed By: #### U JUVE, LIPID, MG, CMP, DBIL, PHOS #### [facility] [address] [place] [address] Dr. Sarmad Patino ALP [Catalytic activity/Vol] 185 U/L Critically high 46-116 [facility] Comment on above: Performed By: #### U JUVE, LIPID, MG, CMP, DBIL, PHOS #### [facility] [address] [place] [address] Dr. Sarmad Patino ALT [Catalytic activity/Vol] 108 U/L Critically high 14-59 [facility] Comment on above: Performed By: #### U JUVE, LIPID, MG, CMP, DBIL, PHOS #### [facility] [address] [place] [address] Dr. Sarmad Patino Anion gap [Moles/Vol] 8.3 mmol/L Normal [facility] Comment on above: Performed By: #### U JUVE, LIPID, MG, CMP, DBIL, PHOS #### [facility] [address] [place] [address] Dr. Sarmad Patino AST [Catalytic activity/Vol] 59 U/L Critically high 15-37 [facility] Comment on above: Performed By: #### U JUVE, LIPID, MG, CMP, DBIL, PHOS #### [facility] [address] [place] [address] Dr. Sarmad Patino Bilirubin [Mass/Vol] 0.6 mg/dL Normal 0.2-1.0 [facility] Comment on above: Performed By: #### U JUVE, LIPID, MG, CMP, DBIL, PHOS #### [facility] [address] [place] [address] Dr. Sarmad Patino Calcium [Mass/Vol] 9.0 mg/dL Normal 8.5-10.1 [facility] Comment on above: Performed By: #### U JUVE, LIPID, MG, CMP, DBIL, PHOS #### [facility] [address] [place] [address] Dr. Sarmad Patino Chloride [Moles/Vol] 100 mmol/L Normal 98-107 [facility] Comment on above: Performed By: #### U JUVE, LIPID, MG, CMP, DBIL, PHOS #### [facility] [address] [address] [address] Sarmad Patino CO2 [Moles/Vol] 29.0 mmol/L Normal 21.0-32.0 [facility] Comment on above: Performed By: #### U JUVE, LIPID, MG, CMP, DBIL, PHOS #### [facility] [address] [place] [address] Dr. Sarmad Patino Creatinine [Mass/Vol] 1.05 mg/dL Critically high 0.55-1.02 [facility] Comment on above: Performed By: #### U JUVE, LIPID, MG, CMP, DBIL, PHOS #### [facility] [address] [place] [address] Dr. Sarmad Patino EGFR-AF MARSHALLESE >60 Normal >=60 [facility] Comment on above: Performed By: #### U JUVE, LIPID, MG, CMP, DBIL, PHOS #### [facility] [address] [place] [address] Dr. Sarmad Patino EGFR-NON AF MARSHALLESE 53 mL/min/1.73m2 Critically low >=60 [facility] Comment on above: Performed By: #### U JUVE, LIPID, MG, CMP, DBIL, PHOS #### [facility] [address] [place] [address] Dr. Sarmad Patino Globulin (S) [Mass/Vol] 4.6 g/dL Normal [facility] Comment on above: Performed By: #### U JUVE, LIPID, MG, CMP, DBIL, PHOS #### [facility] [address] [place], [place] [id number] Dr. Sarmad Patino Glucose [Mass/Vol] 154 mg/dL Critically high 74-[address] [facility] Comment on above: Performed By: #### U JUVE, LIPID, MG, CMP, DBIL, PHOS #### [facility] [address] [place] [address] Dr. Sarmad Patino Potassium [Moles/Vol] 3.3 mmol/L Critically low 3.5-5.1 [facility] Comment on above: Performed By: #### U JUVE, LIPID, MG, CMP, DBIL, PHOS #### [facility] [address] [place] [address] Dr. Sarmad Patino Protein [Mass/Vol] 7.1 g/dL Normal 6.4-8.2 [facility] Comment on above: Performed By: #### U JUVE, LIPID, MG, CMP, DBIL, PHOS #### [facility] [address] [place] [address] Dr. Sarmad Patino Sodium [Moles/Vol] 134 mmol/L Critically low 136-145 Th [facility] Comment on above: Performed By: #### U JUVE, LIPID, MG, CMP, DBIL, PHOS #### [facility] [address] [place] [address] Dr. Sarmad Patino Urea nitrogen [Mass/Vol] 24.0 mg/dL Critically high 7.0-18.0 [facility] Comment on above: Performed By: #### U JUVE, LIPID, MG, CMP, DBIL, PHOS #### [facility] [address] [place] [address] Dr. Sarmad Patino Urea nitrogen/Creatinine [Mass ratio] 22.9 mg/mg Normal [facility] Comment on above: Performed By: #### U JUVE, LIPID, MG, CMP, DBIL, PHOS #### [facility] [address] [place] [address] Dr. Sarmad Patino STREPT SCREENon 01-03-2022 STREP SCREEN A Negative Normal NEGATIVE [facility] Comment on above: Performed By: #### U JUVE, LIPID, MG, CMP, DBIL, PHOS #### [facility] [address] [address] [address] Sarmad Patino XR CHEST 2 Von [...] 03:54 Normal The [facility] Quick Strepon 12-28-2021 S. pyogenes Org specific cx Ql (Throat) Negative [facility] [employer] Other Quick Strep [employer] [employer] Other SARS-CoV-2 (COVID-19) RNA NA A+probe Ql (Resp)on 12-25-2021 SARS-CoV-2 (COVID-19) RNA MURALI+probe Ql (Unsp spec) Negative [employer] Other FK506 (TACROLIMUS) WHOLE BLO ODon 12-08-2021 Tacrolimus (FK506), Blood 6.6 ng/mL Normal 2.0-20.0 [facility] Comment on above: Result Comment: Trou gh (immediately following transplant) 15.0 . Trough (steady state, 2 weeks or more after transplant): 3.0 - 8.0 . Performed by LC-MS/MS technology. Performed By: #### D DAVIDSON, MG, PHOS, CMP, LIPID, URIC #### [facility] [id number] Sarmad Patino RAPAMUNE(SIROLIMUS)on 2021 Rapamune(Sirolimus), whole blood 9.6 ng/mL Normal 3.0-20.0 [facility] Comment on above: Result Comment: Perf ormed by LC/MS-MS technology . This test was developed and its performance characteristics determined by [facility]. It has not been cleared or approved by the Food and Drug Administration. Performed By: #### D DAVIDSON, MG, PHOS, CMP, LIPID, URIC #### [facility] [address] [place] [address] Dr. Sarmad Patino BILIRUBIN CONJUGATED (DIRECT )on 12-05-2021 BILI, CONJUGATED 0.1 mg/dL Normal 0.0-0.2 [facility] Comment on above: Performed By: #### D DAVIDSON, MG, PHOS, CMP, LIPID, URIC #### [facility] [address] [place] [address] Dr. Sarmad Patino CBC W MANUAL DIFFon 12-06-19 22 ATYPICAL LYMPH # Normal [facility] Comment on above: Performed By: #### D DAVIDSON, MG, PHOS, CMP, LIPID, URIC #### [facility] [address] [place] [address] Dr. Sarmad Patino ATYPICAL LYMPH % Normal [facility] Comment on above: Performed By: #### D DAVIDSON, MG, PHOS, CMP, LIPID, URIC #### [facility] [address] [place] [address] Dr. Sarmad Patino BAND # Normal 0.0-0.3 [facility] Comment on above: Performed By: #### D DAVIDSON, MG, PHOS, CMP, LIPID, URIC #### [facility] [address] [place] [address] Dr. Sarmad Patino BAND % Normal 0-5 [facility] Comment on above: Performed By: #### D DAVIDSON, MG, PHOS, CMP, LIPID, URIC #### [facility] [address] [place] [address] Dr. Sarmad Patino BASOM # 0.00 103/ul Normal 0.00-0.10 [facility] Comment on above: Performed By: #### D DAVIDSON, MG, PHOS, CMP, LIPID, URIC #### [facility] [address] [place] [address] Dr. Sarmad Patino BASOM % 0.0 % Critically low 0.2-2.0 [facility] Comment on above: Performed By: #### D DAVIDSON, MG, PHOS, CMP, LIPID, URIC #### [facility] [address] [place] [address] Dr. Sarmad Patino BLAST # Normal [facility] Comment on above: Performed By: #### D DAVIDSON, MG, PHOS, CMP, LIPID, URIC #### [facility] [address] [place] [address] Dr. Sarmad Patino BLAST % Normal [facility] Comment on above: Performed By: #### D DAVIDSON, MG, PHOS, CMP, LIPID, URIC #### [facility] [address] [place] [address] Dr. Sarmad Patino CORRECTED WBC Normal 4.0-11.0 [facility] Comment on above: Performed By: #### D DAVIDSON, MG, PHOS, CMP, LIPID, URIC #### [facility] [address] [place] [address] Dr. Sarmad Patino EOS # 0.15 103/ul Normal 0.00-0.70 [facility] Comment on above: Performed By: #### D DAVIDSON, MG, PHOS, CMP, LIPID, URIC #### [facility] [address] [place] [address] Dr. Sarmad Patino EOS% 2.0 % Normal 0.9-7.0 [facility] Comment on above: Performed By: #### D DAVIDSON, MG, PHOS, CMP, LIPID, URIC #### [facility] [address] [place] [address] Dr. Sarmad Patino HCT 47.5 % Normal 36.0-48.0 [facility] Comment on above: Performed By: #### D DAVIDSON, MG, PHOS, CMP, LIPID, URIC #### [facility] [address] [place] [address] Dr. Sarmad Patino HGB 15.6 g/dl Normal 12.0-16.0 [facility] Comment on above: Performed By: #### D DAVIDSON, MG, PHOS, CMP, LIPID, URIC #### [facility] [address] [address] [address] Sarmad Patino LYMPHM # 1.46 103/ul Normal 1.20-3.80 [facility] Comment on above: Performed By: #### D DAVIDSON, MG, PHOS, CMP, LIPID, URIC #### [facility] [address] [address] [address] Sarmad Patino LYMPHM% 19.0 % Critically low 20.5-60.0 [facility] Comment on above: Performed By: #### D DAVIDSON, MG, PHOS, CMP, LIPID, URIC #### [facility] [address] [place] [address] Dr. Sarmad Patino MCH 28.9 pg Normal 26.7-34.0 [facility] Comment on above: Performed By: #### D DAVIDSON, MG, PHOS, CMP, LIPID, URIC #### [facility] [address] [place] [address] Dr. Sarmad Patino MCHC 32.8 g/dl Normal 29.9-35.2 [facility] Comment on above: Performed By: #### D DAVIDSON, MG, PHOS, CMP, LIPID, URIC #### [facility] [address] [place] [address] Dr. Sarmad Patino MCV 88.1 fL Normal 81.0-99.0 [facility] Comment on above: Performed By: #### D DAVIDSON, MG, PHOS, CMP, LIPID, URIC #### [facility] [address] [place] [address] Dr. Sarmad Patino METAMYELOCYTE # Normal [facility] Comment on above: Performed By: #### D DAVIDSON, MG, PHOS, CMP, LIPID, URIC #### [facility] [address] [place] [address] Dr. Sarmad Patino METAMYELOCYTE % Normal [facility] Comment on above: Performed By: #### D DAVIDSON, MG, PHOS, CMP, LIPID, URIC #### [facility] [address] [place] [address] Dr. Sarmad Patino MONOM# 0.85 103/ul Critically high 0.30-0.80 [facility] Comment on above: Performed By: #### D DAVIDSON, MG, PHOS, CMP, LIPID, URIC #### [facility] [address] [place] [address] Dr. Sarmad Patino MONOM% 11.0 % Normal 1.7-12.0 [facility] Comment on above: Performed By: #### D DAVIDSON, MG, PHOS, CMP, LIPID, URIC #### [facility] [address] [place] [address] Dr. Sarmad Patino MPV 11.3 fL Normal 9.5-13.5 [facility] Comment on above: Performed By: #### D DAVIDSON, MG, PHOS, CMP, LIPID, URIC #### [facility] [address] [place] [address] Dr. Sarmad Patino MYELOCYTE # Normal [facility] Comment on above: Performed By: #### D DAVIDSON, MG, PHOS, CMP, LIPID, URIC #### [facility] [address] [place] [address] Dr. Sarmad Patino MYELOCYTE % Normal [facility] Comment on above: Performed By: #### D DAVIDSON, MG, PHOS, CMP, LIPID, URIC #### [facility] [address] [place] [address] Dr. Sarmad Patino NRBC Normal [facility] Comment on above: Performed By: #### D DAVIDSON, MG, PHOS, CMP, LIPID, URIC #### [facility] [address] [place] [address] Dr. Sarmad Patino PLT 214 103/ul Normal 150-450 [facility] Comment on above: Performed By: #### D DAVIDSON, MG, PHOS, CMP, LIPID, URIC #### [facility] [address] [place] [address] Dr. Sarmad Patino RBC 5.39 106/ul Normal 4.20-5.40 [facility] Comment on above: Performed By: #### D DAVIDSON, MG, PHOS, CMP, LIPID, URIC #### [facility] [address] [place] [address] Dr. Sarmad Patino RDW 13.8 % Normal 11.0-15.0 [facility] Comment on above: Performed By: #### D DAVIDSON, MG, PHOS, CMP, LIPID, URIC #### [facility] [address] [address] [address] Sarmad Patino SEG # 5.24 103/ul Normal 1.40-6.50 [facility] Comment on above: Performed By: #### D DAVIDSON, MG, PHOS, CMP, LIPID, URIC #### [facility] [address] [place] [address] Dr. Sarmad Patino SEG % 68.0 % Normal 43.0-75.0 [facility] Comment on above: Performed By: #### D DAVIDSON, MG, PHOS, CMP, LIPID, URIC #### [facility] [address] [place] [address] Dr. Sarmad Patino WBC 7.7 103/ul Normal 4.0-11.0 [facility] Comment on above: Performed By: #### D DAVIDSON, MG, PHOS, CMP, LIPID, URIC #### [facility] [address] [place] [address] Dr. Sarmad Patino LIPID PROFILEon 12-05-2021 CHOL-HDL RATIO NORM SEE BELOW Normal [facility] Comment on above: Result Comment: 3.3 - 4.4 LOW RISK 4.4 - 7.1 AVERAGE RISK 7.1 - 11.0 MODERATE RISK >11.0 HIGH RISK Performed By: #### D DAVIDSON, MG, PHOS, CMP, LIPID, URIC #### [facility] [address] [place] [address] Dr. Sarmad Patino Cholesterol [Mass/Vol] 170 mg/dL Normal <=200 [facility] Comment on above: Performed By: #### D DAVIDSON, MG, PHOS, CMP, LIPID, URIC #### [facility] [address] [place] [address] Dr. Sarmad Patino Cholesterol in HDL [Mass/Vol] 54 mg/dL Normal 40-60 [facility] Comment on above: Performed By: #### D DAVIDSON, MG, PHOS, CMP, LIPID, URIC #### [facility] [address] [place], [place] [address] Dr. Sarmad Patino Cholesterol in LDL [Mass/Vol] 92.2 mg/dL Normal [facility] Comment on above: Performed By: #### D DAVIDSON, MG, PHOS, CMP, LIPID, URIC #### [facility] [address] [address] [address] Sarmad Patino Cholesterol.total/Cho lesterol in HDL [Mass ratio] 3.1 {ratio} Normal [facility] Comment on above: Performed By: #### D DAVIDSON, MG, PHOS, CMP, LIPID, URIC #### [facility] [address] [address] [address] Sarmad Patino HDL NORMAL > or = 60 mg/dl - LO W CARDIOVASCULAR RISK <40 mg/dl - HIGH CARDIOVASCULAR RISK Normal [facility] Comment on above: Performed By: #### D DAVIDSON, MG, PHOS, CMP, LIPID, URIC #### [facility] [address] [address] [address] Sarmad Patino LDL CALC NORMAL SEE BELOW Normal [facility] Comment on above: Result Comment: <100 mg/dl OPTIMAL 100 - 129 mg/dl NEAR OR ABOVE OPTIMAL 130 - 159 mg/dl BORDERLINE HIGH 160 - 189 mg/dl HIGH >190 mg/dl VERY HIGH Performed By: #### D DAVIDSON, MG, PHOS, CMP, LIPID, URIC #### [facility] [address] [address] [address] Sarmad Patino Triglyceride [Mass/Vol] 119 mg/dL Normal <=150 [facility] Comment on above: Performed By: #### D DAVIDSON, MG, PHOS, CMP, LIPID, URIC #### [facility] [address] [address] [address] Sarmad Patino VLDL CALC 23.8 mg/dL Normal [facility] Comment on above: Performed By: #### D DAVIDSON, MG, PHOS, CMP, LIPID, URIC #### [facility] [address] [address] [address] Sarmad Patino MAGNESIUMon 12-05-2021 Magnesium [Mass/Vol] 1.8 mg/dL Normal 1.8-2.4 [facility] Comment on above: Performed By: #### D DAVIDSON, MG, PHOS, CMP, LIPID, URIC #### [facility] [address] [place] [address] Dr. Sarmad Patino PHOSPHORUSon 12-05-2021 Phosphate [Mass/Vol] 3.8 mg/dL Normal 2.6-4.7 [facility] Comment on above: Performed By: #### D DAVIDSON, MG, PHOS, CMP, LIPID, URIC #### [facility] [address] [place] [address] Dr. Sarmad Patino PROF 14(COMP METB)on 022 Albumin [Mass/Vol] 3.7 g/dL Normal 3.4-5.0 [facility] Comment on above: Performed By: #### D DAVIDSON, MG, PHOS, CMP, LIPID, URIC #### [facility] [address] [place] [address] Dr. Sarmad Patino Albumin/Globulin [Mass ratio] 1.0 {ratio} Normal [facility] Comment on above: Performed By: #### D DAVIDSON, MG, PHOS, CMP, LIPID, URIC #### [facility] [address] [place] [address] Dr. Sarmad Patino ALP [Catalytic activity/Vol] 151 U/L Critically high 46-116 [facility] Comment on above: Performed By: #### D DAVIDSON, MG, PHOS, CMP, LIPID, URIC #### [facility] [address] [place] [address] Dr. Sarmad Patino ALT [Catalytic activity/Vol] 27 U/L Normal 14-59 [facility] Comment on above: Performed By: #### D DAVIDSON, MG, PHOS, CMP, LIPID, URIC #### [facility] [address] [place] [address] Dr. Sarmad Patino Anion gap [Moles/Vol] 14.5 mmol/L Normal [facility] Comment on above: Performed By: #### D DAVIDSON, MG, PHOS, CMP, LIPID, URIC #### [facility] [address] [place] [address] Dr. Sarmad Patino AST [Catalytic activity/Vol] 25 U/L Normal 15-37 [facility] Comment on above: Performed By: #### D DAVIDSON, MG, PHOS, CMP, LIPID, URIC #### [facility] [address] [address] [address] Sarmad Patino Bilirubin [Mass/Vol] 0.4 mg/dL Normal 0.2-1.0 [facility] Comment on above: Performed By: #### D DAVIDSON, MG, PHOS, CMP, LIPID, URIC #### [facility] [address] [address] [address] Sarmad Patino Calcium [Mass/Vol] 9.4 mg/dL Normal 8.5-10.1 [facility] Comment on above: Performed By: #### D DAVIDSON, MG, PHOS, CMP, LIPID, URIC #### [facility] [address] [address] [address] Sarmad Patino Chloride [Moles/Vol] 103 mmol/L Normal 98-107 [facility] Comment on above: Performed By: #### D DAVIDSON, MG, PHOS, CMP, LIPID, URIC #### [facility] [address] [address] [address] Sarmad Patino CO2 [Moles/Vol] 26.5 mmol/L Normal 21.0-32.0 [facility] Comment on above: Performed By: #### D DAVIDSON, MG, PHOS, CMP, LIPID, URIC #### [facility] [address] [address] [address] Sarmad Patino Creatinine [Mass/Vol] 0.87 mg/dL Normal 0.55-1.02 [facility] Comment on above: Performed By: #### D DAVIDSON, MG, PHOS, CMP, LIPID, URIC #### [facility] [address] [address] [address] Sarmad Patino EGFR-AF MARSHALLESE >60 Normal >=60 [facility] Comment on above: Performed By: #### D DAVIDSON, MG, PHOS, CMP, LIPID, URIC #### [facility] [address] [address] [address] Sarmad Patino EGFR-NON AF MARSHALLESE >60 Normal >=60 [facility] Comment on above: Performed By: #### D DAVIDSON, MG, PHOS, CMP, LIPID, URIC #### [facility] [address] [place] [address] Dr. Sarmad Patino Globulin (S) [Mass/Vol] 3.8 g/dL Normal [facility] Comment on above: Performed By: #### D DAVIDSON, MG, PHOS, CMP, LIPID, URIC #### [facility] [address] [place] [address] Dr. Sarmad Ptaino Glucose [Mass/Vol] 104 mg/dL Normal 74-106 [facility] Comment on above: Performed By: #### D DAVIDSON, MG, PHOS, CMP, LIPID, URIC #### [facility] [address] [place] [address] Dr. Sarmad Patino Potassium [Moles/Vol] 4.0 mmol/L Normal 3.5-5.1 [facility] Comment on above: Performed By: #### D DAVIDSON, MG, PHOS, CMP, LIPID, URIC #### [facility] [address] [address] [address] Sarmad Patino Protein [Mass/Vol] 7.5 g/dL Normal 6.4-8.2 [facility] Comment on above: Performed By: #### D DAVIDSON, MG, PHOS, CMP, LIPID, URIC #### [facility] [address] [address] [address] Sarmad Patino Sodium [Moles/Vol] 140 mmol/L Normal 136-145 [facility] Comment on above: Performed By: #### D DAVIDSON, MG, PHOS, CMP, LIPID, URIC #### [facility] [address] [place] [address] Dr. Sarmad Patino Urea nitrogen [Mass/Vol] 19.0 mg/dL Critically high 7.0-18.0 [facility] Comment on above: Performed By: #### D DAVIDSON, MG, PHOS, CMP, LIPID, URIC #### [facility] [address] [place] [address] Dr. Sarmad Patino Urea nitrogen/Creatinine [Mass ratio] 21.8 mg/mg Normal [facility] Comment on above: Performed By: #### D DAVIDSON, MG, PHOS, CMP, LIPID, URIC #### [facility] [address] [address] [address] Sarmad Patino URIC ACID SERUMon 12-05-2021 Urate [Mass/Vol] 5.2 mg/dL Normal 2.6-6.0 [facility] Comment on above: Performed By: #### D DAVIDSON, MG, PHOS, CMP, LIPID, URIC #### [facility] [address] [address] [address] Sarmad SALAZAROLIMU, WHOLE BLOODon EVEROLIMUS 7.0 ng/mL Normal 3.0-8.0 [facility] Comment on above: Result Comment: Perf ormed by LC-MS/MS technology. Performed By: #### D DAVIDSON, MG, PHOS, CMP, LIPID, URIC #### [facility] [address] [address] [address] Sarmad Patino FK506 (TACROLIMUS) WHOLE BLO ODon 11-10-2021 Tacrolimus (FK506), Blood 6.4 ng/mL Normal 2.0-20.0 [facility] Comment on above: Result Comment: Trou gh (immediately following transplant) 15.0 . Trough (steady state, 2 weeks or more after transplant): 3.0 - 8.0 . Performed by LC-MS/MS technology. Performed By: #### D DAVIDSON, MG, PHOS, CMP, LIPID, URIC #### [facility] [address] [place] [address] Dr. Sarmad Patino BK VIRUS PCR QUANTon 022 BKV DNA QUANT PCR PLASMA Negative Normal Negative [facility] Comment on above: Result Comment: No B K DNA detected. . The linear range of the assay is 22 - 100,000,000 IU/mL. Performed By: #### U JUVE, LIPID, MG, CMP, DBIL, PHOS #### [facility] [address] [address] [address] Sarmad Patino Log10 BKV DNA Plasma Normal [facility] Comment on above: Performed By: #### U JUVE, LIPID, MG, CMP, DBIL, PHOS #### [facility] [address] [place] [address] Dr. Sarmad Patino BILIRUBIN CONJUGATED (DIRECT )on 11-07-2021 BILI, CONJUGATED 0.1 mg/dL Normal 0.0-0.2 [facility] Comment on above: Performed By: #### D DAVIDSON, MG, PHOS, CMP, LIPID, URIC #### [facility] [address] [place] [address] Dr. Sarmad Patino CBC AUTO DIFFon 11-07-2021 BASO # 0.0 103/ul Normal 0.0-0.1 [facility] Comment on above: Performed By: #### D DAVIDSON, MG, PHOS, CMP, LIPID, URIC #### [facility] [address] [place] [address] Dr. Sarmad Patino Basophils/100 WBC (Bld) 0.3 % Normal 0.2-2.0 [facility] Comment on above: Performed By: #### D DAVIDSON, MG, PHOS, CMP, LIPID, URIC #### [facility] [address] [place] [address] Dr. Sarmad Patino EO # 0.1 103/ul Normal 0.0-0.7 [facility] Comment on above: Performed By: #### D DAVIDSON, MG, PHOS, CMP, LIPID, URIC #### [facility] [address] [place] [address] Dr. Sarmad Patino Eosinophils/100 WBC (Bld) 2.1 % Normal 0.9-7.0 [facility] Comment on above: Performed By: #### D DAVIDSON, MG, PHOS, CMP, LIPID, URIC #### [facility] [address] [place] [address] Dr. Sarmad Patino Erythrocyte distribution width (RBC) [Ratio] 13.5 % Normal 11.0-15.0 [facility] Comment on above: Performed By: #### D DAVIDSON, MG, PHOS, CMP, LIPID, URIC #### [facility] [address] [place] [address] Dr. Sarmad Patino Hematocrit (Bld) [Volume fraction] 46.7 % Normal 36.0-48.0 [facility] Comment on above: Performed By: #### D DAVIDSON, MG, PHOS, CMP, LIPID, URIC #### [facility] [address] [place] [address] Dr. Sarmad Patino Hemoglobin (Bld) [Mass/Vol] 15.1 g/dL Normal 12.0-16.0 [facility] Comment on above: Performed By: #### D DAVIDSON, MG, PHOS, CMP, LIPID, URIC #### [facility] [address] [place] [address] Dr. Sarmad Patino IG # 0.03 10e3/ul Normal 0.00-0.03 [facility] Comment on above: Performed By: #### D DAVIDSON, MG, PHOS, CMP, LIPID, URIC #### [facility] [address] [place] [address] Dr. Sarmad Patino IG % 0.5 % Normal 0.0-0.5 [facility] Comment on above: Performed By: #### D DAVIDSON, MG, PHOS, CMP, LIPID, URIC #### [facility] [address] [place] [address] Dr. Sarmad Patino LYMPH # 1.3 103/ul Normal 1.2-3.8 [facility] Comment on above: Performed By: #### D DAVIDSON, MG, PHOS, CMP, LIPID, URIC #### [facility] [address] [place] [address] Dr. Sarmad Patino Lymphocytes/100 WBC (Bld) 19.9 % Critically low 20.5-60.0 [facility] Comment on above: Performed By: #### D DAVIDSON, MG, PHOS, CMP, LIPID, URIC #### [facility] [address] [place] [address] Dr. Sarmad Patino MANUAL DIFF REQ NO Normal [facility] Comment on above: Performed By: #### D DAVIDSON, MG, PHOS, CMP, LIPID, URIC #### [facility] [address] [place] [address] Dr. Sarmad Patino MCH (RBC) [Entitic mass] 28.6 pg Normal 26.7-34.0 [facility] Comment on above: Performed By: #### D DAVIDSON, MG, PHOS, CMP, LIPID, URIC #### [facility] [address] [place] [address] Dr. Sarmad Patino MCHC (RBC) [Mass/Vol] 32.3 g/dL Normal 29.9-35.2 [facility] Comment on above: Performed By: #### D DAVIDSON, MG, PHOS, CMP, LIPID, URIC #### [facility] [address] [place] [address] Dr. Sarmad Patino MCV (RBC) [Entitic vol] 88.4 fL Normal 81.0-99.0 [facility] Comment on above: Performed By: #### D DAVIDSON, MG, PHOS, CMP, LIPID, URIC #### [facility] [address] [place] [address] Dr. Sarmad Patino MONO # 0.8 103/ul Normal 0.3-0.8 [facility] Comment on above: Performed By: #### D DAVIDSON, MG, PHOS, CMP, LIPID, URIC #### [facility] [address] [place] [address] Dr. Sarmad Patino Monocytes/100 WBC (Bld) 12.9 % Critically high 1.7-12.0 [facility] Comment on above: Performed By: #### D DAVIDSON, MG, PHOS, CMP, LIPID, URIC #### [facility] [address] [place] [address] Dr. Sarmad Patino NEUT # 4.0 103/ul Normal 1.4-6.5 [facility] Comment on above: Performed By: #### D DAVIDSON, MG, PHOS, CMP, LIPID, URIC #### [facility] [address] [place] [address] Dr. Sarmad Patino Neutrophils/100 WBC (Bld) 64.3 % Normal 43.0-75.0 [facility] Comment on above: Performed By: #### D DAVIDSON, MG, PHOS, CMP, LIPID, URIC #### [facility] [address] [place] [address] Dr. Sarmad Patino Platelet mean volume (Bld) [Entitic vol] 11.3 fL Normal 9.5-13.5 [facility] Comment on above: Performed By: #### D DAVIDSON, MG, PHOS, CMP, LIPID, URIC #### [facility] [address] [place] [address] [address] Sarmad Patino PLT 241 103/ul Normal 150-450 [facility] Comment on above: Performed By: #### D DAVIDSON, MG, PHOS, CMP, LIPID, URIC #### [facility] [address] [place] [address] [address] Sarmad Patino RBC 5.28 106/ul Normal 4.20-5.40 [facility] Comment on above: Performed By: #### D DAVIDSON, MG, PHOS, CMP, LIPID, URIC #### [facility] [address] [place] [address] Dr. Sarmad Patino WBC 6.3 103/ul Normal 4.0-11.0 [facility] Comment on above: Performed By: #### D DAVIDSON, MG, PHOS, CMP, LIPID, URIC #### [facility] [address] [place] [address] Dr. Sarmad Patino GLYCOHEMOGLOBIN A1Con 2021 ADA RECOMMENDATION SEE BELOW Normal [facility] Comment on above: Result Comment: ADA RECOMMENDED LIMIT 4.0 - 6.0 ADA THERAPEUTIC TARGET < 7.0 ACTION SUGGESTED > 7.0 Performed By: #### D DAVIDSON, MG, PHOS, CMP, LIPID, URIC #### [facility] [address] [place] [address] Dr. Sarmad Patino Glucose [Mass/Vol] 120 mg/dL Normal [facility] Comment on above: Performed By: #### D DAVIDSON, MG, PHOS, CMP, LIPID, URIC #### [facility] [address] [place] [address] [address] Sarmad Patino HbA1c (Bld) [Mass fraction] 5.8 % Normal 4.5-6.2 [facility] Comment on above: Performed By: #### D DAVIDSON, MG, PHOS, CMP, LIPID, URIC #### [facility] [address] [place] [address] [address] Sarmad Patino LIPID PROFILEon 11-07-2021 CHOL-HDL RATIO NORM SEE BELOW Normal [facility] Comment on above: Result Comment: 3.3 - 4.4 LOW RISK 4.4 - 7.1 AVERAGE RISK 7.1 - 11.0 MODERATE RISK >11.0 HIGH RISK Performed By: #### D DAVIDSON, MG, PHOS, CMP, LIPID, URIC #### [facility] [address] [place] [address] [address] Sarmad Patino Cholesterol [Mass/Vol] 157 mg/dL Normal <=200 [facility] Comment on above: Performed By: #### D DAVIDSON, MG, PHOS, CMP, LIPID, URIC #### [facility] [address] [place] [address] [address] Sarmad Patino Cholesterol in HDL [Mass/Vol] 48 mg/dL Normal 40-60 [facility] Comment on above: Performed By: #### D DAVIDSON, MG, PHOS, CMP, LIPID, URIC #### [facility] [address] [place] [address] [address] Sarmad Patino Cholesterol in LDL [Mass/Vol] 89.6 mg/dL Normal [facility] Comment on above: Performed By: #### D DAVIDSON, MG, PHOS, CMP, LIPID, URIC #### [facility] [address] [place] [address] [address] Sarmad Patino Cholesterol.total/Cho lesterol in HDL [Mass ratio] 3.3 {ratio} Normal [facility] Comment on above: Performed By: #### D DAVIDSON, MG, PHOS, CMP, LIPID, URIC #### [facility] [address] [place] [address] [address] Sarmad Patino HDL NORMAL > or = 60 mg/dl - LO W CARDIOVASCULAR RISK <40 mg/dl - HIGH CARDIOVASCULAR RISK Normal [facility] Comment on above: Performed By: #### D DAVIDSON, MG, PHOS, CMP, LIPID, URIC #### [facility] [address] [place] [address] [address] Sarmad Patino LDL CALC NORMAL SEE BELOW Normal [facility] Comment on above: Result Comment: <100 mg/dl OPTIMAL 100 - 129 mg/dl NEAR OR ABOVE OPTIMAL 130 - 159 mg/dl BORDERLINE HIGH 160 - 189 mg/dl HIGH >190 mg/dl VERY HIGH Performed By: #### D DAVIDSON, MG, PHOS, CMP, LIPID, URIC #### [facility] [address] [place] [address] [address] Sarmad Patino Triglyceride [Mass/Vol] 97 mg/dL Normal <=150 [facility] Comment on above: Performed By: #### D DAVIDSON, MG, PHOS, CMP, LIPID, URIC #### [facility] [address] [place] [address] Dr. Sarmad Patino VLDL CALC 19.4 mg/dL Normal [facility] Comment on above: Performed By: #### D DAVIDSON, MG, PHOS, CMP, LIPID, URIC #### [facility] [address] [place] [address] Dr. Sarmad Patino MAGNESIUMon 11-07-2021 Magnesium [Mass/Vol] 1.9 mg/dL Normal 1.8-2.4 [facility] Comment on above: Performed By: #### D DAVIDSON, MG, PHOS, CMP, LIPID, URIC #### [facility] [address] [place] [address] Dr. Sarmad Patino PHOSPHORUSon 11-07-2021 Phosphate [Mass/Vol] 3.4 mg/dL Normal 2.6-4.7 [facility] Comment on above: Performed By: #### D DAVIDSON, MG, PHOS, CMP, LIPID, URIC #### [facility] [address] [place] [address] Dr. Sarmad Patino PROF 14(COMP METB)on 022 Albumin [Mass/Vol] 3.6 g/dL Normal 3.4-5.0 [facility] Comment on above: Performed By: #### D DAVIDSON, MG, PHOS, CMP, LIPID, URIC #### [facility] [address] [place] [address] Dr. Sarmad Patino Albumin/Globulin [Mass ratio] 0.9 {ratio} Normal [facility] Comment on above: Performed By: #### D DAVIDSON, MG, PHOS, CMP, LIPID, URIC #### [facility] [address] [place] [address] [address] Sarmad Patino ALP [Catalytic activity/Vol] 158 U/L Critically high 46-116 [facility] Comment on above: Performed By: #### D DAVIDSON, MG, PHOS, CMP, LIPID, URIC #### [facility] [address] [place] [address] Dr. Sarmad Patino ALT [Catalytic activity/Vol] 23 U/L Normal 14-59 [facility] Comment on above: Performed By: #### D DAVIDSON, MG, PHOS, CMP, LIPID, URIC #### [facility] [address] [place] [address] Dr. Sarmad Patino Anion gap [Moles/Vol] 14.8 mmol/L Normal [facility] Comment on above: Performed By: #### D DAVIDSON, MG, PHOS, CMP, LIPID, URIC #### [facility] [address] [place] [address] Dr. Sarmad Patino AST [Catalytic activity/Vol] 18 U/L Normal 15-37 [facility] Comment on above: Performed By: #### D DAVIDSON, MG, PHOS, CMP, LIPID, URIC #### [facility] [address] [place] [address] Dr. Sarmad Patino Bilirubin [Mass/Vol] 0.4 mg/dL Normal 0.2-1.0 [facility] Comment on above: Performed By: #### D DAVIDSON, MG, PHOS, CMP, LIPID, URIC #### [facility] [address] [place] [address] [address] Sarmad Patino Calcium [Mass/Vol] 9.3 mg/dL Normal 8.5-10.1 [facility] Comment on above: Performed By: #### D DAVIDSON, MG, PHOS, CMP, LIPID, URIC #### [facility] [address] [place] [address] Dr. Sarmad Patino Chloride [Moles/Vol] 105 mmol/L Normal 98-107 [facility] Comment on above: Performed By: #### D DAVIDSON, MG, PHOS, CMP, LIPID, URIC #### [facility] [address] [place] [address] [address] Sarmad Patino CO2 [Moles/Vol] 26.1 mmol/L Normal 21.0-32.0 [facility] Comment on above: Performed By: #### D DAVIDSON, MG, PHOS, CMP, LIPID, URIC #### [facility] [address] [place] [address] [address] Sarmad Patino Creatinine [Mass/Vol] 0.84 mg/dL Normal 0.55-1.02 [facility] Comment on above: Performed By: #### D DAVIDSON, MG, PHOS, CMP, LIPID, URIC #### [facility] [address] [place] [address] [address] Sarmad Patino EGFR-AF MARSHALLESE >60 Normal >=60 [facility] Comment on above: Performed By: #### D DAVIDSON, MG, PHOS, CMP, LIPID, URIC #### [facility] [address] [place] [address] Dr. Sarmad Patino EGFR-NON AF MARSHALLESE >60 Normal >=60 [facility] Comment on above: Performed By: #### D DAVIDSON, MG, PHOS, CMP, LIPID, URIC #### [facility] [address] [place] [address] Dr. Sarmad Patino Globulin (S) [Mass/Vol] 3.8 g/dL Normal [facility] Comment on above: Performed By: #### D DAVIDSON, MG, PHOS, CMP, LIPID, URIC #### [facility] [address] [place] [address] [address] Sarmad Patino Glucose [Mass/Vol] 97 mg/dL Normal 74-106 [facility] Comment on above: Performed By: #### D DAVIDSON, MG, PHOS, CMP, LIPID, URIC #### [facility] [address] [place] [address] [address] Sarmad Patino Potassium [Moles/Vol] 3.9 mmol/L Normal 3.5-5.1 [facility] Comment on above: Performed By: #### D DAVIDSON, MG, PHOS, CMP, LIPID, URIC #### [facility] [address] [place] [address] Dr. Sarmad Patino Protein [Mass/Vol] 7.4 g/dL Normal 6.4-8.2 [facility] Comment on above: Performed By: #### D DAVIDSON, MG, PHOS, CMP, LIPID, URIC #### [facility] [address] [place] [address] Dr. Sarmad Patino Sodium [Moles/Vol] 142 mmol/L Normal 136-145 [facility] Comment on above: Performed By: #### D DAVIDSON, MG, PHOS, CMP, LIPID, URIC #### [facility] [address] [place] [address] Dr. Sarmad Patino Urea nitrogen [Mass/Vol] 21.0 mg/dL Critically high 7.0-18.0 [facility] Comment on above: Performed By: #### D DAVIDSON, MG, PHOS, CMP, LIPID, URIC #### [facility] [address] [place] [address] Dr. Sarmad Patino Urea nitrogen/Creatinine [Mass ratio] 25.0 mg/mg Normal [facility] Comment on above: Performed By: #### D DAVIDSON, MG, PHOS, CMP, LIPID, URIC #### [facility] [address] [place] [address] Dr. Sarmad Patino URIC ACID SERUMon 11-07-2021 Urate [Mass/Vol] 5.1 mg/dL Normal 2.6-6.0 [facility] Comment on above: Performed By: #### D DAVIDSON, MG, PHOS, CMP, LIPID, URIC #### [facility] [address] [place] [address] Dr. Sarmad Patino BOX TEST SENT OUTon 10-16-19 SENT TO REF LAB 10/15/[address] [facility] Comment on above: Performed By: #### D DAVIDSON, MG, PHOS, CMP, LIPID, URIC #### [facility] [address] [place] [address] Dr. Sarmad SALAZAROLIMU, WHOLE BLOODon EVEROLIMUS 6.7 ng/mL Normal 3.0-8.0 [facility] Comment on above: Result Comment: Perf ormed by LC-MS/MS technology. Performed By: #### D DAVIDSON, MG, PHOS, CMP, LIPID, URIC #### [facility] [address] [place] [address] Dr. Sarmad Patino FK506 (TACROLIMUS) WHOLE BLO ODon 10-10-2021 Tacrolimus (FK506), Blood 5.9 ng/mL Normal 2.0-20.0 [facility] Comment on above: Result Comment: Trou gh (immediately following transplant) 15.0 . Trough (steady state, 2 weeks or more after transplant): 3.0 - 8.0 . Performed by LC-MS/MS technology. Performed By: #### D DAVIDSON, MG, PHOS, CMP, LIPID, URIC #### [facility] [address] [place] [address] Dr. Sarmad Patino BILIRUBIN CONJUGATED (DIRECT )on 10-08-2021 BILI, CONJUGATED 0.1 mg/dL Normal 0.0-0.2 [facility] Comment on above: Performed By: #### U JUVE, LIPID, MG, CMP, DBIL, PHOS #### [facility] [address] [place] [address] Dr. Sarmad Patino CBC AUTO DIFFon 10-08-2021 BASO # 0.0 103/ul Normal 0.0-0.1 [facility] Comment on above: Performed By: #### D DAVIDSON, MG, PHOS, CMP, LIPID, URIC #### [facility] [address] [place] [address] Dr. Sarmad Patino Basophils/100 WBC (Bld) 0.1 % Critically low 0.2-2.0 [facility] Comment on above: Performed By: #### D DAVIDSON, MG, PHOS, CMP, LIPID, URIC #### [facility] [address] [place] [address] Dr. Sarmad Patino EO # 0.1 103/ul Normal 0.0-0.7 [facility] Comment on above: Performed By: #### D DAVIDSON, MG, PHOS, CMP, LIPID, URIC #### [facility] [address] [place] [address] [address] Sarmad Patino Eosinophils/100 WBC (Bld) 1.4 % Normal 0.9-7.0 [facility] Comment on above: Performed By: #### D DAVIDSON, MG, PHOS, CMP, LIPID, URIC #### [facility] [address] [place] [address] Dr. Sarmad Patino Erythrocyte distribution width (RBC) [Ratio] 13.6 % Normal 11.0-15.0 [facility] Comment on above: Performed By: #### D DAVIDSON, MG, PHOS, CMP, LIPID, URIC #### [facility] [address] [place] [address] Dr. Sarmad Patino Hematocrit (Bld) [Volume fraction] 47.5 % Normal 36.0-48.0 [facility] Comment on above: Performed By: #### D DAVIDSON, MG, PHOS, CMP, LIPID, URIC #### [facility] [address] [place] [address] Dr. Sarmad Patino Hemoglobin (Bld) [Mass/Vol] 15.7 g/dL Normal 12.0-16.0 [facility] Comment on above: Performed By: #### D DAVIDSON, MG, PHOS, CMP, LIPID, URIC #### [facility] [address] [place] [address] Dr. Sarmad Patino IG # 0.04 10e3/ul Critically high 0.00-0.03 [facility] Comment on above: Performed By: #### D DAVIDSON, MG, PHOS, CMP, LIPID, URIC #### [facility] [address] [place] [address] Dr. Sarmad Patino IG % 0.5 % Normal 0.0-0.5 [facility] Comment on above: Performed By: #### D DAVIDSON, MG, PHOS, CMP, LIPID, URIC #### [facility] [address] [place] [address] Dr. Sarmad Patino LYMPH # 1.3 103/ul Normal 1.2-3.8 [facility] Comment on above: Performed By: #### D DAVIDSON, MG, PHOS, CMP, LIPID, URIC #### [facility] [address] [place] [address] Dr. Sarmad Patino Lymphocytes/100 WBC (Bld) 15.4 % Critically low 20.5-60.0 [facility] Comment on above: Performed By: #### D DAVIDSON, MG, PHOS, CMP, LIPID, URIC #### [facility] [address] [place] [address] Dr. Sarmad Patino MANUAL DIFF REQ NO Normal [facility] Comment on above: Performed By: #### D DAVIDSON, MG, PHOS, CMP, LIPID, URIC #### [facility] [address] [place] [address] Dr. Sarmad Patino MCH (RBC) [Entitic mass] 29.1 pg Normal 26.7-34.0 [facility] Comment on above: Performed By: #### D DAVIDSON, MG, PHOS, CMP, LIPID, URIC #### [facility] [address] [place] [address] Dr. Sarmad Patino MCHC (RBC) [Mass/Vol] 33.1 g/dL Normal 29.9-35.2 [facility] Comment on above: Performed By: #### D DAVIDSON, MG, PHOS, CMP, LIPID, URIC #### [facility] [address] [place] [address] Dr. Sarmad Patino MCV (RBC) [Entitic vol] 88.0 fL Normal 81.0-99.0 [facility] Comment on above: Performed By: #### D DAVIDSON, MG, PHOS, CMP, LIPID, URIC #### [facility] [address] [place] [address] Dr. Sarmad Patino MONO # 0.9 103/ul Critically high 0.3-0.8 [facility] Comment on above: Performed By: #### D DAVIDSON, MG, PHOS, CMP, LIPID, URIC #### [facility] [address] [place] [address] Dr. Sarmad Patino Monocytes/100 WBC (Bld) 10.2 % Normal 1.7-12.0 [facility] Comment on above: Performed By: #### D DAVIDSON, MG, PHOS, CMP, LIPID, URIC #### [facility] [address] [place] [address] [address] Sarmad Patino NEUT # 6.1 103/ul Normal 1.4-6.5 [facility] Comment on above: Performed By: #### D DAVIDSON, MG, PHOS, CMP, LIPID, URIC #### [facility] [address] [place] [address] Dr. Sarmad Patino Neutrophils/100 WBC (Bld) 72.4 % Normal 43.0-75.0 [facility] Comment on above: Performed By: #### D DAVIDSON, MG, PHOS, CMP, LIPID, URIC #### [facility] [address] [place] [address] Dr. Sarmad Patino Platelet mean volume (Bld) [Entitic vol] 11.1 fL Normal 9.5-13.5 [facility] Comment on above: Performed By: #### D DAVIDSON, MG, PHOS, CMP, LIPID, URIC #### [facility] [address] [address] [address] Sarmad Patino PLT 213 103/ul Normal 150-450 [facility] Comment on above: Performed By: #### D DAVIDSON, MG, PHOS, CMP, LIPID, URIC #### [facility] [address] [address] [address] Sarmad Patino RBC 5.40 106/ul Normal 4.20-5.40 [facility] Comment on above: Performed By: #### D DAVIDSON, MG, PHOS, CMP, LIPID, URIC #### [facility] [address] [address] [address] Sarmad Patino WBC 8.4 103/ul Normal 4.0-11.0 [facility] Comment on above: Performed By: #### D DAVIDSON, MG, PHOS, CMP, LIPID, URIC #### [facility] [address] [address] [address] Sarmad Patino LIPID PROFILEon 10-08-2021 CHOL-HDL RATIO NORM SEE BELOW Normal [facility] Comment on above: Result Comment: 3.3 - 4.4 LOW RISK 4.4 - 7.1 AVERAGE RISK 7.1 - 11.0 MODERATE RISK >11.0 HIGH RISK Performed By: #### D DAVIDSON, MG, PHOS, CMP, LIPID, URIC #### [facility] [address] [address] [address] Sarmad Patino Cholesterol [Mass/Vol] 155 mg/dL Normal <=200 [facility] Comment on above: Performed By: #### D DAVIDSON, MG, PHOS, CMP, LIPID, URIC #### [facility] [address] [address] [address] Sarmad Patino Cholesterol in HDL [Mass/Vol] 49 mg/dL Normal 40-60 [facility] Comment on above: Performed By: #### D DAVIDSON, MG, PHOS, CMP, LIPID, URIC #### [facility] [address] [address] [address] Sarmad Patino Cholesterol in LDL [Mass/Vol] 73.8 mg/dL Normal [facility] Comment on above: Performed By: #### D DAVIDSON, MG, PHOS, CMP, LIPID, URIC #### [facility] [address] [address] [address] Sarmad Patino Cholesterol.total/Cho lesterol in HDL [Mass ratio] 3.2 {ratio} Normal [facility] Comment on above: Performed By: #### D DAVIDSON, MG, PHOS, CMP, LIPID, URIC #### [facility] [address] [address] [address] Sarmad Patino HDL NORMAL > or = 60 mg/dl - LO W CARDIOVASCULAR RISK <40 mg/dl - HIGH CARDIOVASCULAR RISK Normal [facility] Comment on above: Performed By: #### D DAVIDSON, MG, PHOS, CMP, LIPID, URIC #### [facility] [address] [place] [address] Dr. Sarmad Patino LDL CALC NORMAL SEE BELOW Normal [facility] Comment on above: Result Comment: <100 mg/dl OPTIMAL 100 - 129 mg/dl NEAR OR ABOVE OPTIMAL 130 - 159 mg/dl BORDERLINE HIGH 160 - 189 mg/dl HIGH >190 mg/dl VERY HIGH Performed By: #### D DAVIDSON, MG, PHOS, CMP, LIPID, URIC #### [facility] [address] [place] [address] Dr. Sarmad Patino Triglyceride [Mass/Vol] 161 mg/dL Critically high <=150 [facility] Comment on above: Performed By: #### D DAVIDSON, MG, PHOS, CMP, LIPID, URIC #### [facility] [address] [address] [address] Sarmad Patino VLDL CALC 32.2 mg/dL Normal [facility] Comment on above: Performed By: #### D DAVIDSON, MG, PHOS, CMP, LIPID, URIC #### [facility] [address] [place] [address] Dr. Sarmad Patino MAGNESIUMon 10-08-2021 Magnesium [Mass/Vol] 1.6 mg/dL Critically low 1.8-2.4 [facility] Comment on above: Performed By: #### U JUVE, LIPID, MG, CMP, DBIL, PHOS #### [facility] [address] [place] [address] Dr. Sarmad Patino PHOSPHORUSon 10-08-2021 Phosphate [Mass/Vol] 3.5 mg/dL Normal 2.6-4.7 [facility] Comment on above: Performed By: #### U JUVE, LIPID, MG, CMP, DBIL, PHOS #### [facility] [address] [place] [address] Dr. Sarmad Patino PROF 14(COMP METB)on 022 Albumin [Mass/Vol] 3.6 g/dL Normal 3.4-5.0 [facility] Comment on above: Performed By: #### D DAVIDSON, MG, PHOS, CMP, LIPID, URIC #### [facility] [address] [place] [address] Dr. Sarmad Patino Albumin/Globulin [Mass ratio] 0.9 {ratio} Normal [facility] Comment on above: Performed By: #### D DAVIDSON, MG, PHOS, CMP, LIPID, URIC #### [facility] [address] [address] [address] Sarmad Patino ALP [Catalytic activity/Vol] 150 U/L Critically high 46-116 [facility] Comment on above: Performed By: #### D DAVIDSON, MG, PHOS, CMP, LIPID, URIC #### [facility] [address] [address] [address] Sarmad Patino ALT [Catalytic activity/Vol] 21 U/L Normal 14-59 [facility] Comment on above: Performed By: #### D DAVIDSON, MG, PHOS, CMP, LIPID, URIC #### [facility] [address] [address] [address] Sarmad Patino Anion gap [Moles/Vol] 14.0 mmol/L Normal [facility] [facility] Comment on above: Performed By: #### D DAVIDSON, MG, PHOS, CMP, LIPID, URIC #### [facility] [address] [place] [address] Dr. Sarmad Patino AST [Catalytic activity/Vol] 13 U/L Critically low 15-37 [facility] Comment on above: Performed By: #### D DAVIDSON, MG, PHOS, CMP, LIPID, URIC #### [facility] [address] [address] [address] Sarmad Patino Bilirubin [Mass/Vol] 0.5 mg/dL Normal 0.2-1.0 [facility] Comment on above: Performed By: #### D DAVIDSON, MG, PHOS, CMP, LIPID, URIC #### [facility] [address] [place] [address] Dr. Sarmad Patino Calcium [Mass/Vol] 9.8 mg/dL Normal 8.5-10.1 [facility] Comment on above: Performed By: #### D DAVIDSON, MG, PHOS, CMP, LIPID, URIC #### [facility] [address] [place] [address] Dr. Sarmad Patino Chloride [Moles/Vol] 105 mmol/L Normal 98-107 [facility] Comment on above: Performed By: #### D DAVIDSON, MG, PHOS, CMP, LIPID, URIC #### [facility] [address] [address] [address] Sarmad Patino CO2 [Moles/Vol] 25.9 mmol/L Normal 21.0-32.0 [facility] Comment on above: Performed By: #### D DAVIDSON, MG, PHOS, CMP, LIPID, URIC #### [facility] [address] [address] [address] Sarmad Patino Creatinine [Mass/Vol] 0.81 mg/dL Normal 0.55-1.02 [facility] Comment on above: Performed By: #### D DAVIDSON, MG, PHOS, CMP, LIPID, URIC #### [facility] [address] [place] [address] Dr. Sarmad Patino EGFR-AF MARSHALLESE >60 Normal >=60 [facility] Comment on above: Performed By: #### D DAVIDSON, MG, PHOS, CMP, LIPID, URIC #### [facility] [address] [place] [address] Dr. Sarmad Patino EGFR-NON AF MARSHALLESE >60 Normal >=60 [facility] Comment on above: Performed By: #### D DAVIDSON, MG, PHOS, CMP, LIPID, URIC #### [facility] [address] [place] [address] Dr. Sarmad Patino Globulin (S) [Mass/Vol] 3.8 g/dL Normal [facility] Comment on above: Performed By: #### D DAVIDSON, MG, PHOS, CMP, LIPID, URIC #### [facility] [address] [address] [address] Sarmad Patino Glucose [Mass/Vol] 101 mg/dL Normal 74-106 [facility] Comment on above: Performed By: #### D DAVIDSON, MG, PHOS, CMP, LIPID, URIC #### [facility] [address] [place] [address] Dr. Sarmad Patino Potassium [Moles/Vol] 3.9 mmol/L Normal 3.5-5.1 [facility] Comment on above: Performed By: #### D DAVIDSON, MG, PHOS, CMP, LIPID, URIC #### [facility] [address] [place] [address] Dr. Sarmad Patino Protein [Mass/Vol] 7.4 g/dL Normal 6.4-8.2 [facility] Comment on above: Performed By: #### D DAVIDSON, MG, PHOS, CMP, LIPID, URIC #### [facility] [address] [address] [address] Sarmad Patino Sodium [Moles/Vol] 141 mmol/L Normal 136-145 [facility] Comment on above: Performed By: #### D DAVIDSON, MG, PHOS, CMP, LIPID, URIC #### [facility] [address] [address] [address] Sarmad Patino Urea nitrogen [Mass/Vol] 18.0 mg/dL Normal 7.0-18.0 [facility] Comment on above: Performed By: #### D DAVIDSON, MG, PHOS, CMP, LIPID, URIC #### [facility] [address] [address] [address] Sarmad Patino Urea nitrogen/Creatinine [Mass ratio] 22.2 mg/mg Normal [facility] Comment on above: Performed By: #### D DAVIDSON, MG, PHOS, CMP, LIPID, URIC #### [facility] [address] [address] [address] Sarmad Patino URIC ACID SERUMon 10-08-2021 Urate [Mass/Vol] 4.7 mg/dL Normal 2.6-6.0 [facility] Comment on above: Performed By: #### D DAVIDSON, MG, PHOS, CMP, LIPID, URIC #### [facility] [address] [address] [address] Sarmad SALAZAROLIMU, WHOLE BLOODon EVEROLIMUS 8.0 ng/mL Normal 3.0-8.0 [facility] Comment on above: Result Comment: Perf ormed by LC-MS/MS technology. Performed By: #### U JUVE, LIPID, MG, CMP, DBIL, PHOS #### [facility] [address] [place] [address] Dr. Sarmad Patino FK506 (TACROLIMUS) WHOLE BLO ODon 09-14-2021 Tacrolimus (FK506), Blood 9.3 ng/mL Normal 2.0-20.0 [facility] Comment on above: Result Comment: Trou gh (immediately following transplant) 15.0 . Trough (steady state, 2 weeks or more after transplant): 3.0 - 8.0 . Performed by LC-MS/MS technology. Performed By: #### U JUVE, LIPID, MG, CMP, DBIL, PHOS #### [facility] [address] [address] [address] Sarmad Patino BK VIRUS PCR QUANTon 022 BKV DNA QUANT PCR PLASMA Negative Normal Negative [facility] Comment on above: Result Comment: No B K DNA detected. . The linear range of the assay is 22 - 100,000,000 IU/mL. Performed By: #### D DAVIDSON, MG, PHOS, CMP, LIPID, URIC #### [facility] [address] [place] [address] Dr. Sarmad Patino Log10 BKV DNA Plasma Normal [facility] Comment on above: Performed By: #### D DAVIDSON, MG, PHOS, CMP, LIPID, URIC #### [facility] [address] [place] [address] Dr. Sarmad Patino BILIRUBIN CONJUGATED (DIRECT )on 09-10-2021 BILI, CONJUGATED 0.1 mg/dL Normal 0.0-0.2 [facility] Comment on above: Performed By: #### D DAVIDSON, MG, PHOS, CMP, LIPID, URIC #### [facility] [address] [place] [address] Dr. Sarmad Patino CBC AUTO DIFFon 09-10-2021 BASO # 0.0 103/ul Normal 0.0-0.1 [facility] Comment on above: Performed By: #### D DAVIDSON, MG, PHOS, CMP, LIPID, URIC #### [facility] [address] [place] [address] Dr. Sarmad Patino Basophils/100 WBC (Bld) 0.1 % Critically low 0.2-2.0 [facility] Comment on above: Performed By: #### D DAVIDSON, MG, PHOS, CMP, LIPID, URIC #### [facility] [address] [place] [address] Dr. Sarmad Patino EO # 0.2 103/ul Normal 0.0-0.7 [facility] Comment on above: Performed By: #### D DAVIDSON, MG, PHOS, CMP, LIPID, URIC #### [facility] [address] [place] [address] Dr. Sarmad Patino Eosinophils/100 WBC (Bld) 2.3 % Normal 0.9-7.0 [facility] Comment on above: Performed By: #### D DAVIDSON, MG, PHOS, CMP, LIPID, URIC #### [facility] [address] [place] [address] Dr. Sarmad Patino Erythrocyte distribution width (RBC) [Ratio] 13.6 % Normal 11.0-15.0 [facility] Comment on above: Performed By: #### D DAVIDSON, MG, PHOS, CMP, LIPID, URIC #### [facility] [address] [place] [address] Dr. Sarmad Patino Hematocrit (Bld) [Volume fraction] 45.1 % Normal 36.0-48.0 [facility] Comment on above: Performed By: #### D DAVIDSON, MG, PHOS, CMP, LIPID, URIC #### [facility] [address] [place] [address] Dr. Sarmad Patino Hemoglobin (Bld) [Mass/Vol] 14.7 g/dL Normal 12.0-16.0 [facility] Comment on above: Performed By: #### D DAVIDSON, MG, PHOS, CMP, LIPID, URIC #### [facility] [address] [place] [address] Dr. Sarmad Patino IG # 0.03 10e3/ul Normal 0.00-0.03 [facility] Comment on above: Performed By: #### D DAVIDSON, MG, PHOS, CMP, LIPID, URIC #### [facility] [address] [place] [address] Dr. Sarmad Patino IG % 0.4 % Normal 0.0-0.5 [facility] Comment on above: Performed By: #### D DAVIDSON, MG, PHOS, CMP, LIPID, URIC #### [facility] [address] [address] [address] Sarmad Patino LYMPH # 1.3 103/ul Normal 1.2-3.8 [facility] Comment on above: Performed By: #### D DAVIDSON, MG, PHOS, CMP, LIPID, URIC #### [facility] [address] [address] [address] Sarmad Patino Lymphocytes/100 WBC (Bld) 18.9 % Critically low 20.5-60.0 [facility] Comment on above: Performed By: #### D DAVIDSON, MG, PHOS, CMP, LIPID, URIC #### [facility] [address] [address] [address] Sarmad Patino MANUAL DIFF REQ NO Normal [facility] Comment on above: Performed By: #### D DAVIDSON, MG, PHOS, CMP, LIPID, URIC #### [facility] [address] [place] [address] Dr. Sarmad Patino MCH (RBC) [Entitic mass] 29.0 pg Normal 26.7-34.0 [facility] Comment on above: Performed By: #### D DAVIDSON, MG, PHOS, CMP, LIPID, URIC #### [facility] [address] [place] [address] Dr. Sarmad Patino MCHC (RBC) [Mass/Vol] 32.6 g/dL Normal 29.9-35.2 [facility] Comment on above: Performed By: #### D DAVIDSON, MG, PHOS, CMP, LIPID, URIC #### [facility] [address] [place] [address] Dr. Sarmad Patino MCV (RBC) [Entitic vol] 89.0 fL Normal 81.0-99.0 [facility] Comment on above: Performed By: #### D DAVIDSON, MG, PHOS, CMP, LIPID, URIC #### [facility] [address] [place] [address] Dr. Sarmad Patino MONO # 0.8 103/ul Normal 0.3-0.8 [facility] Comment on above: Performed By: #### D DAVIDSON, MG, PHOS, CMP, LIPID, URIC #### [facility] [address] [place] [address] Dr. Sarmad Patino Monocytes/100 WBC (Bld) 11.9 % Normal 1.7-12.0 [facility] Comment on above: Performed By: #### D DAVIDSON, MG, PHOS, CMP, LIPID, URIC #### [facility] [address] [place] [address] Dr. Sarmad Patino NEUT # 4.6 103/ul Normal 1.4-6.5 [facility] Comment on above: Performed By: #### D DAVIDSON, MG, PHOS, CMP, LIPID, URIC #### [facility] [address] [place] [address] Dr. Sarmad Patino Neutrophils/100 WBC (Bld) 66.4 % Normal 43.0-75.0 [facility] Comment on above: Performed By: #### D DAVIDSON, MG, PHOS, CMP, LIPID, URIC #### [facility] [address] [place] [address] Dr. Sarmad Patino Platelet mean volume (Bld) [Entitic vol] 10.6 fL Normal 9.5-13.5 [facility] Comment on above: Performed By: #### D DAVIDSON, MG, PHOS, CMP, LIPID, URIC #### [facility] [address] [place] [address] Dr. Sarmad Patino PLT 233 103/ul Normal 150-450 [facility] Comment on above: Performed By: #### D DAVIDSON, MG, PHOS, CMP, LIPID, URIC #### [facility] [address] [place] [address] Dr. Sarmad Patino RBC 5.07 106/ul Normal 4.20-5.40 [facility] Comment on above: Performed By: #### D DAVIDSON, MG, PHOS, CMP, LIPID, URIC #### [facility] [address] [place] [address] Dr. Sarmad Patino WBC 6.9 103/ul Normal 4.0-11.0 [facility] Comment on above: Performed By: #### D DAVIDSON, MG, PHOS, CMP, LIPID, URIC #### [facility] [address] [address] [address] Sarmad Patino GLYCOHEMOGLOBIN A1Con 2021 ADA RECOMMENDATION SEE BELOW Normal [facility] Comment on above: Result Comment: ADA RECOMMENDED LIMIT 4.0 - 6.0 ADA THERAPEUTIC TARGET < 7.0 ACTION SUGGESTED > 7.0 Performed By: #### D DAVIDSON, MG, PHOS, CMP, LIPID, URIC #### [facility] [address] [address] [address] Sarmad Patino Glucose [Mass/Vol] 120 mg/dL Normal [facility] Comment on above: Performed By: #### D DAVIDSON, MG, PHOS, CMP, LIPID, URIC #### [facility] [address] [place] [address] Dr. Sarmad Patino HbA1c (Bld) [Mass fraction] 5.8 % Normal 4.5-6.2 [facility] Comment on above: Performed By: #### D DAVIDSON, MG, PHOS, CMP, LIPID, URIC #### [facility] [address] [place] [address] Dr. Sarmad Patino LIPID PROFILEon 09-10-2021 CHOL-HDL RATIO NORM SEE BELOW Normal [facility] Comment on above: Result Comment: 3.3 - 4.4 LOW RISK 4.4 - 7.1 AVERAGE RISK 7.1 - 11.0 MODERATE RISK >11.0 HIGH RISK Performed By: #### D DAVIDSON, MG, PHOS, CMP, LIPID, URIC #### [facility] [address] [address] [address] Sarmad Patino Cholesterol [Mass/Vol] 150 mg/dL Normal <=200 [facility] Comment on above: Performed By: #### D DAVIDSON, MG, PHOS, CMP, LIPID, URIC #### [facility] [address] [address] [address] Sarmad Patino Cholesterol in HDL [Mass/Vol] 47 mg/dL Normal 40-60 [facility] Comment on above: Performed By: #### D DAVIDSON, MG, PHOS, CMP, LIPID, URIC #### [facility] [address] [address] [address] Sarmad Patino Cholesterol in LDL [Mass/Vol] 78.4 mg/dL Normal [facility] Comment on above: Performed By: #### D DAVIDSON, MG, PHOS, CMP, LIPID, URIC #### [facility] [address] [address] [address] Sarmad Patino Cholesterol.total/Cho lesterol in HDL [Mass ratio] 3.2 {ratio} Normal [facility] Comment on above: Performed By: #### D DAVIDSON, MG, PHOS, CMP, LIPID, URIC #### [facility] [address] [address] [address] Sarmad Patino HDL NORMAL > or = 60 mg/dl - LO W CARDIOVASCULAR RISK <40 mg/dl - HIGH CARDIOVASCULAR RISK Normal [facility] Comment on above: Performed By: #### D DAVIDSON, MG, PHOS, CMP, LIPID, URIC #### [facility] [address] [address] [address] Sarmad Patino LDL CALC NORMAL SEE BELOW Normal [facility] Comment on above: Result Comment: <100 mg/dl OPTIMAL 100 - 129 mg/dl NEAR OR ABOVE OPTIMAL 130 - 159 mg/dl BORDERLINE HIGH 160 - 189 mg/dl HIGH >190 mg/dl VERY HIGH Performed By: #### D DAVIDSON, MG, PHOS, CMP, LIPID, URIC #### [facility] [address] [address] [address] Sarmad Patino Triglyceride [Mass/Vol] 123 mg/dL Normal <=150 [facility] Comment on above: Performed By: #### D DAVIDSON, MG, PHOS, CMP, LIPID, URIC #### [facility] [address] [address] [address] Sarmad Patino VLDL CALC 24.6 mg/dL Normal [facility] Comment on above: Performed By: #### D DAVIDSON, MG, PHOS, CMP, LIPID, URIC #### [facility] [address] [address] [address] Sarmad Patino MAGNESIUMon 09-10-2021 Magnesium [Mass/Vol] 1.5 mg/dL Critically low 1.8-2.4 [facility] Comment on above: Performed By: #### D DAVIDSON, MG, PHOS, CMP, LIPID, URIC #### [facility] [address] [address] [address] Sarmad Patino PHOSPHORUSon 09-10-2021 Phosphate [Mass/Vol] 3.8 mg/dL Normal 2.6-4.7 [facility] Comment on above: Performed By: #### D DAVIDSON, MG, PHOS, CMP, LIPID, URIC #### [facility] [address] [address] [address] Sarmad Patino PROF 14(COMP METB)on Albumin [Mass/Vol] 3.4 g/dL Normal 3.4-5.0 [facility] Comment on above: Performed By: #### D DAVIDSON, MG, PHOS, CMP, LIPID, URIC #### [facility] [address] [place] [address] Dr. Sarmad Patino Albumin/Globulin [Mass ratio] 0.9 {ratio} Normal [facility] Comment on above: Performed By: #### D DAVIDSON, MG, PHOS, CMP, LIPID, URIC #### [facility] [address] [place] [address] Dr. Sarmad Patino ALP [Catalytic activity/Vol] 143 U/L Critically high 46-116 [facility] Comment on above: Performed By: #### D DAVIDSON, MG, PHOS, CMP, LIPID, URIC #### [facility] [address] [place] [address] Dr. Sarmad Patino ALT [Catalytic activity/Vol] 19 U/L Normal 14-59 [facility] Comment on above: Performed By: #### D DAVIDSON, MG, PHOS, CMP, LIPID, URIC #### [facility] [address] [address] [address] Sarmad Patino Anion gap [Moles/Vol] 13.4 mmol/L Normal [facility] Comment on above: Performed By: #### D DAVIDSON, MG, PHOS, CMP, LIPID, URIC #### [facility] [address] [place] [address] Dr. Sarmad Patino AST [Catalytic activity/Vol] 24 U/L Normal 15-37 [facility] Comment on above: Performed By: #### D DAVIDSON, MG, PHOS, CMP, LIPID, URIC #### [facility] [address] [place] [address] Dr. Sarmad Patino Bilirubin [Mass/Vol] 0.4 mg/dL Normal 0.2-1.0 [facility] Comment on above: Performed By: #### D DAVIDSON, MG, PHOS, CMP, LIPID, URIC #### [facility] [address] [place] [address] Dr. Sarmad Patino Calcium [Mass/Vol] 9.3 mg/dL Normal 8.5-10.1 [facility] Comment on above: Performed By: #### D DAVIDSON, MG, PHOS, CMP, LIPID, URIC #### [facility] [address] [place] [address] Dr. Sarmad Patino Chloride [Moles/Vol] 106 mmol/L Normal 98-107 [facility] Comment on above: Performed By: #### D DAVIDSON, MG, PHOS, CMP, LIPID, URIC #### [facility] [address] [place] [address] Dr. Sarmad Patino CO2 [Moles/Vol] 25.5 mmol/L Normal 21.0-32.0 [facility] Comment on above: Performed By: #### D DAVIDSON, MG, PHOS, CMP, LIPID, URIC #### [facility] [address] [place] [address] Dr. Sarmad Patino Creatinine [Mass/Vol] 0.85 mg/dL Normal 0.55-1.02 [facility] Comment on above: Performed By: #### D DAVIDSON, MG, PHOS, CMP, LIPID, URIC #### [facility] [address] [place] [address] Dr. Sarmad Patino EGFR-AF MARSHALLESE >60 Normal >=60 [facility] Comment on above: Performed By: #### D DAVIDSON, MG, PHOS, CMP, LIPID, URIC #### [facility] [address] [place] [address] Dr. Sarmad Patino EGFR-NON AF MARSHALLESE >60 Normal >=60 [facility] Comment on above: Performed By: #### D DAVIDSON, MG, PHOS, CMP, LIPID, URIC #### [facility] [address] [place] [address] Dr. Sarmad Patino Globulin (S) [Mass/Vol] 3.8 g/dL Normal [facility] Comment on above: Performed By: #### D DAVIDSON, MG, PHOS, CMP, LIPID, URIC #### [facility] [address] [address] [address] Sarmad Patino Glucose [Mass/Vol] 100 mg/dL Normal 74-106 [facility] Comment on above: Performed By: #### D DAVIDSON, MG, PHOS, CMP, LIPID, URIC #### [facility] [address] [place] [address] Dr. Sarmad Patino Potassium [Moles/Vol] 3.9 mmol/L Normal 3.5-5.1 [facility] Comment on above: Performed By: #### D DAVIDSON, MG, PHOS, CMP, LIPID, URIC #### [facility] [address] [place] [address] Dr. Sarmad Patino Protein [Mass/Vol] 7.2 g/dL Normal 6.4-8.2 [facility] Comment on above: Performed By: #### D DAVIDSON, MG, PHOS, CMP, LIPID, URIC #### [facility] [address] [place] [address] Dr. Sarmad Patino Sodium [Moles/Vol] 141 mmol/L Normal 136-145 [facility] Comment on above: Performed By: #### D DAVIDSON, MG, PHOS, CMP, LIPID, URIC #### [facility] [address] [place] [address] Dr. Sarmad Patino Urea nitrogen [Mass/Vol] 16.0 mg/dL Normal 7.0-18.0 [facility] Comment on above: Performed By: #### D DAVIDSON, MG, PHOS, CMP, LIPID, URIC #### [facility] [address] [place] [address] Dr. Sarmad Patino Urea nitrogen/Creatinine [Mass ratio] 18.8 mg/mg Normal [facility] Comment on above: Performed By: #### D DAVIDSON, MG, PHOS, CMP, LIPID, URIC #### [facility] [id number] Sarmad Patino URIC ACID SERUMon 09-10-2021 Urate [Mass/Vol] 4.8 mg/dL Normal 2.6-6.0 [facility] Comment on above: Performed By: #### D DAVIDSON, MG, PHOS, CMP, LIPID, URIC #### [facility] [address] [place], [place] [address] Dr. Sarmad Patino Urinalysis - AUTOMATEDon Appearance (U) cloudy [employer] Other Bilirubin Ql (U) Negative [employer] Other Color (U) pale yellow [employer] Other Glucose Ql (U) Negative [employer] Other Hemoglobin Ql (U) moderate [employer] Other Ketones Ql (U) Negative [employer] Other Leukocyte esterase Test strip Ql (U) moderate [employer] [employer] Other Nitrite Ql (U) Negative [employer] Other pH (U) 7.0 [pH] [facility] [employer] Other Protein Ql (U) Negative [employer] Other Specific gravity (U) [Rel density] 1.[address] [employer] Other Urobilinogen (U) [Mass/Vol] 0.2 mg/dL [facility] [employer] Other Urinalysis - AUTOMATED [facility] [employer] Other Urine Cultureon 08-14-2021 Urine Culture 100,[address] [employer] Other Urine Culture <16 Susceptible [employer] Other Urine Culture >[address] [employer] Other Urine Culture <4 Susceptible [employer] Other Urine Culture <2 Susceptible [employer] Other Urine Culture <1 Susceptible [employer] Other Urine Culture <0.5 Susceptible [employer] Other Urine Culture <32 Susceptible [employer] Other Urine Culture <2/38 Susceptible [employer] Other Bacteria identified Cx Nom (U) Reason for Exam Dysuria Urine ORGANISM: Klebsiella pneumoniae (O:KLEPNE) [place] Count 100,000 Aerobic SHYLA Charge (NUC86) ---- [...] RESISTANT TO ALL B-LACTAM DRUGS. PERFORMED BY: [facility] [address] [place] [address] PATHOLOGIST RIVERINE [employer] CRAFT CREWMAN LOVELY COLE M.D. Normal [facility] Comment on above: Performed By: #### C UU #### [facility] [address] [place] [address] *URINE CULTUREon 12-31-2017 Bacteria identified in Urine by Culture Clinical Report: (D) Specimen: URINE Collected: 12/31/2017 13:40 Status: Final Last Updated: 01/04/2018 12:38 ISO (Final) Diphtheroids >100,000 Cfu/Ml 2 Morphologies ISO (Final) Aerococcus urinae 50,000 - 100,000 Cfu/mL Result changed by RFISCHB on 01/04/2018 12:38. The previous result was: ISO (Prelim) Normal [facility] Comment on above: Performed By: #### 4 1000, 25359, 03299, 84675, 74952, 79351 ####[facility] CBC W/DIFFon 12-25-2017 ABS BASOPHILS 0.0 10*3/uL Normal 0.0-0.2 The [facility] Comment on above: Performed By: #### 5 0103 ####[facility] ABS IMM GRANS 0.0 10*3/uL Normal 0.0-0.2 The [facility] Comment on above: Performed By: #### 5 0103 ####[facility] ABS NEUTROPHILS 5.0 10*3/uL Normal 1.6-7.6 The [facility] Comment on above: Performed By: #### 5 0103 ####[facility] Basophils Auto #/vol (Bld) 0.1 % Normal 0.0-1.0 [facility] Comment on above: Performed By: #### 5 0103 ####[facility]3000 [facility].[address] Eosinophils Auto #/vol (Bld) 0.1 10*3/uL Normal 0.0-0.5 [facility] Comment on above: Performed By: #### 5 0103 ####[facility]3000 [facility].[address] Eosinophils/100 WBC Auto (Bld) 1.6 % Normal 0.0-6.0 [facility] Comment on above: Performed By: #### 5 0103 ####[facility] Erythrocyte distribution width Auto Ratio (RBC) 14.6 % Normal 11.5-15.0 [facility] Comment on above: Performed By: #### 0103 ####[facility] Hematocrit Auto Volume Fraction (Bld) 44.9 % Normal 36.0-45.0 The [facility] Comment on above: Performed By: #### 5 0103 ####[facility] Hemoglobin mass conc (Bld) 14.9 g/dL Normal 12.0-15.0 [facility] Comment on above: Performed By: #### 3 ####[facility] IMMATURE GRANS 0.4 % Normal 0.0-1.0 The [facility] Comment on above: Performed By: #### 5 3 ####[facility] [place] [address], [facility] Lymphocytes Auto #/vol (Bld) 1.0 10*3/uL Low 1.2-4.0 [facility] Comment on above: Performed By: #### 5 3 ####[facility] Lymphocytes/100 WBC Auto (Bld) 14.9 % Low 20.0-45.0 [facility] Comment on above: Performed By: #### 3 ####[facility] MCH Auto Entitic mass (RBC) 28.8 pg Normal 27.0-33.0 [facility] Comment on above: Performed By: #### 3 ####[facility] MCHC Auto mass conc (RBC) 33.2 g/dL Normal 32.0-35.0 [facility] Comment on above: Performed By: #### 3 ####[facility] MCV Auto Entitic volume (RBC) 86.7 fL Normal 82.0-98.0 [facility] Comment on above: Performed By: #### 3 ####[facility] Monocytes Auto #/vol (Bld) 0.7 10*3/uL Normal 0.1-1.0 [facility] Comment on above: Performed By: #### 3 ####[facility] MONOS 10.6 % Normal 5.0-12.0 [facility] Comment on above: Performed By: #### 102 ####[facility] Neutrophils/100 WBC Auto (Bld) 72.4 % High 40.0-72.0 [facility] Comment on above: Performed By: #### 5 0103 ####[facility] Nucleated RBC/100 WBC Ratio (Bld) 0 % Normal 0-0 [facility] Comment on above: Performed By: #### 5 0103 ####[facility]3000 [facility].[address] PLAT CNT 203 10*3/uL Normal 150-400 The [facility] Comment on above: Performed By: #### 5 0103 ####[facility]3000 [facility].[address] RBC Auto #/vol (Bld) 5.18 10*6/uL High 3.80-5.00 Th e [facility] Comment on above: Performed By: #### 5 0103 ####[facility] [facility].[address] WBC Auto #/vol (Bld) 6.90 10*3/uL Normal 4.00-10.60 Th e [facility] Comment on above: Performed By: #### 5 0103 ####[facility]3000 [facility].[address] COMP METABOLIC PANELon 12-25 Albumin mass conc 4.3 g/dL Normal 3.5-5.7 The [facility] Comment on above: Performed By: #### 4 1000, 66434, 71955, 93429, 49037, 69454 ####[facility]3000 [facility].[address] ALKALINE PHOSPH 118 IU/L High 34-104 The [facility] Comment on above: Performed By: #### 4 1000, 53245, 70028, 32530, 65115, 63878 ####[facility]3000 [facility] [place] [place] [address], [place] ALT enzyme act/vol 11 U/L Normal 7-52 The [facility] Comment on above: Performed By: #### 4 1000, 35287, 24530, 09578, 75307, 33446 ####[facility] [place] [address], [place] AST enzyme act/vol 17 U/L Normal 13-39 The [facility] Comment on above: Performed By: #### 4 1000, 87572, 91620, 79142, 11013, 99640 ####[facility] [place] [address], [place] Bilirubin mass conc 0.4 mg/dL Normal 0.3-1.0 The [facility] Comment on above: Performed By: #### 4 1000, 41974, 81697, 94056, 82392, 29457 ####[facility] [place] [address], [place] Calcium mass conc 9.8 mg/dL Normal 8.6-10.3 The [facility] Comment on above: Performed By: #### 4 1000, 18426, 40141, 49292, 56811, 41703 ####[facility] [place] [address], [place] Chloride molar conc 104 mmol/L Normal 98-107 The [facility] Comment on above: Performed By: #### 4 1000, 37916, 27102, 19533, 23372, 83872 ####[facility] [place] [address], [place] CO2 molar conc 27 mmol/L Normal 21-31 The [facility] Comment on above: Performed By: #### 4 1000, 77102, 93959, 36200, 42433, 08796 ####[facility] [place] [address], [place] Creatinine mass conc 0.76 mg/dL Normal 0.60-1.20 [facility] Comment on above: Performed By: #### 4 1000, 10749, 82148, 77928, 62701, 88471 ####[facility] [place] [address], [facility] GFR/1.73 sq M predicted among blacks MDRD vol rate/area (S/P/Bld) mL/min/{1.73_m2} Normal >60 The [facility] Comment on above: Performed By: #### 4 1000, 54712, 48281, 44300, 34886, 86698 ####[facility] [place] [address], [facility] GFR/1.73 sq M predicted among non-blacks MDRD vol rate/area (S/P/Bld) mL/min/{1.73_m2} Normal >60 The [facility] Comment on above: Performed By: #### 4 1000, 79676, 46110, 59542, 64310, 22061 ####[facility] [place] [address], [facility] Glucose mass conc 94 mg/dL Normal 70-100 The [facility] Comment on above: Performed By: #### 4 1000, 66303, 83661, 56823, 68470, 78091 ####[facility] [place] [address], [facility] Potassium molar conc 3.9 mmol/L Normal 3.5-5.1 [facility] Comment on above: Performed By: #### 4 1000, 75748, 54989, 90837, 12535, 48165 ####[facility] [place] [address], [facility] Protein mass conc 7.2 g/dL Normal 6.0-8.3 The [facility] Comment on above: Performed By: #### 4 1000, 77045, 34366, 94826, 28690, 96213 ####[facility] Sodium molar conc 140 mmol/L Normal 136-145 The [facility] Comment on above: Performed By: #### 4 1000, 63824, 60531, 61185, 51323, 02956 ####[facility] Urea nitrogen mass conc 15 mg/dL Normal 7-25 [facility] Comment on above: Performed By: #### 4 1000, 83328, 58784, 35065, 09947, 98976 ####[facility] DIRECT BILIon 12-25-2017 Bilirubin.direct mass conc 0.1 mg/dL Normal 0.0-0.2 [facility] Comment on above: Performed By: #### 4 1000, 89102, 27948, 45645, 30733, 98989 ####[facility] EVEROLIMUS 69297jx 8 EVEROLIMUS 4.7 ng/mL Normal [facility] Comment on above: Result [...] the transplantcenter.Test developed and characteristics determined by [facility]. See Compliance Statement B: [place]/CSPerformed by [facility],[address] [place] [address] cyq.[place], Leonid Antonio MD - Lab. Director LIPID PROFILEon 12-25-2017 Cholesterol in HDL mass conc 51 mg/dL Normal 23-92 The [facility] Comment on above: Result Comment: Slig ht variation in normal range could be due to gender and/or age.HDL CHOLESTEROL REFERENCE RANGE:20 years and older Cardiovascular Risk> or =60 mg/dL [id number] TO 59 mg/dL Low Risk<40 mg/dL High Risk Performed By: #### 4 5506, 12341, 71766, 27569, 43141, 62967 ####[facility] [facility] [place] [address], [facility] Cholesterol in LDL mass conc 58 mg/dL Normal 0-130 The [facility] Comment on above: Result Comment: LDL IS A CALCULATIONLDL IS ONLY VALID IF THE TRIG IS LESS THAN 400. Performed By: #### 4 5506, 67795, 80704, 61613, 27059, 88303 ####[facility] [place] [address], [facility] Cholesterol mass conc 122 mg/dL Normal 120-200 The [facility] Comment on above: Result Comment: CHOL ESTEROL REFERENCE RANGE:20 YEARS AND OLDER CARDIOVASCULAR RISKLess than 200 mg/dl Low Mtcz127 to 239 mg/dl Borderline Bark447 mg/dl and greater High Risk Performed By: #### 4 5506, 49827, 30814, 18604, 39979, 44646 ####[facility] [place] [address], [place] Cholesterol.total/Cho lesterol in HDL mass ratio 2.4 {ratio} Normal .0-4.5 The [facility] Comment on above: Performed By: #### 4 5506, 48760, 56976, 82902, 32736, 74056 ####[facility] NON-HDL CHOLESTEROL 71 mg/dL Normal The [facility] Comment on above: Performed By: #### 4 5506, 57966, 58824, 04365, 34051, 98778 ####[facility] Triglyceride mass conc 65 mg/dL Normal 40-149 [facility] Comment on above: Result Comment: TRIG LYCERIDE REFERENCE RANGE:20 YEARS AND OLDER CARDIOVASCULAR RISKLESS THAN 150 mg/dl LOW [id number] TO 199 mg/dl BORDERLINE URHH425 mg/dl AND GREATER HIGH RISK Performed By: #### 4 5506, 08559, 10689, 02357, 63992, 69480 ####[facility] VLDL CHOL 13 mg/dL Normal 0-40 [facility] Comment on above: Performed By: #### 4 5506, 36815, 60709, 89120, 84024, 38218 ####[facility] MAGNESIUM BLOODon 12-25-2017 Magnesium mass conc 1.8 mg/dL Low 1.9-2.7 The [facility] Comment on above: Performed By: #### 4 1000, 71221, 21519, 86983, 92708, 90212 ####[facility] [place] [address], [facility] PHOSPHORUS BLOODon 8 Phosphate mass conc 3.4 mg/dL Normal 2.5-5.0 The [facility] Comment on above: Performed By: #### 4 5506, 81526, 45593, 93474, 86483, 02923 ####[facility] TACROLIMUSon 09-27-2018 Tacrolimus mass conc (Bld) 6.4 ng/mL Normal 5.0-20.0 The [facility] Comment on above: Result Comment: The [facility] Tacrolimus assay is a delayed one-step immunoassayfor the quantitative determination of tacrolimus in human whole bloodusing the chemiluminescent microparticle immunoassay (CMIA) technologywith flexible assay protocols, referred to as Chemiflex. Performed By: #### 4 1000, 18001, 94285, 73789, 94940, 41353 ####[facility] URIC ACID BLOODon 12-25-2017 Urate mass conc 4.7 mg/dL Normal 2.3-6.6 The [facility] Comment on above: Performed By: #### 4 5506, 14860, 89100, 76545, 29336, 56457 ####[facility] CBC W/DIFFon 10-30-2017 ABS BASOPHILS 0.0 10*3/uL Normal 0.0-0.2 The [facility] Comment on above: Performed By: #### 4 6447, 92348 ####[facility] ABS IMM GRANS 0.0 10*3/uL Normal 0.0-0.2 The [facility] Comment on above: Performed By: #### 4 6447, 31208 ####[facility] ABS NEUTROPHILS 4.9 10*3/uL Normal 1.6-7.6 The [facility] Comment on above: Performed By: #### 4 6447, 37575 ####[facility] [place] [address] Basophils Auto #/vol (Bld) 0.1 % Normal 0.0-1.0 The [facility] Comment on above: Performed By: #### 4 6047, 68483 ####[facility] Eosinophils Auto #/vol (Bld) 0.1 10*3/uL Normal 0.0-0.5 [facility] Comment on above: Performed By: #### 4 6566, 26971 ####[facility] Eosinophils/100 WBC Auto (Bld) 1.4 % Normal 0.0-6.0 [facility] Comment on above: Performed By: #### 4 5973, 02690 ####[facility] Erythrocyte distribution width Auto Ratio (RBC) 14.6 % Normal 11.5-15.0 [facility] Comment on above: Performed By: #### 4 6615, 29227 ####[facility] Hematocrit Auto Volume Fraction (Bld) 46.8 % High 36.0-45.0 The [facility] Comment on above: Performed By: #### 4 4955, 64298 ####[facility] Hemoglobin mass conc (Bld) 15.1 g/dL High 12.0-15.0 [facility] Comment on above: Performed By: #### 4 3625, 36719 ####[facility] IMMATURE GRANS 0.4 % Normal 0.0-1.0 The [facility] Comment on above: Performed By: #### 4 8207, 99794 ####[facility] [place] [address], [facility] Lymphocytes Auto #/vol (Bld) 1.2 10*3/uL Normal 1.2-4.0 [facility] Comment on above: Performed By: #### 4 1355, 96364 ####[facility] Lymphocytes/100 WBC Auto (Bld) 16.6 % Low 20.0-45.0 [facility] Comment on above: Performed By: #### 4 0790, 47848 ####[facility] MCH Auto Entitic mass (RBC) 29.0 pg Normal 27.0-33.0 [facility] Comment on above: Performed By: #### 4 3219, 61208 ####[place] [id number] [address] MCHC Auto mass conc (RBC) 32.3 g/dL Normal 32.0-35.0 [facility] Comment on above: Performed By: #### 4 1742, 99796 ####[address] MCV Auto Entitic volume (RBC) 89.8 fL Normal 82.0-98.0 [facility] Comment on above: Performed By: #### 4 6832, 62693 ####[facility]3000 [facility].[address] Monocytes Auto #/vol (Bld) 0.8 10*3/uL Normal 0.1-1.0 [facility] Comment on above: Performed By: #### 4 2772, 20648 ####[facility] MONOS 11.9 % Normal 5.0-12.0 [facility] Comment on above: Performed By: #### 4 1486, 08409 ####[facility] [place] [address], [place] Neutrophils/100 WBC Auto (Bld) 69.6 % Normal 40.0-72.0 [facility] Comment on above: Performed By: #### 4 6447, 86669 ####[facility]3000 [facility].[address] Nucleated RBC/100 WBC Ratio (Bld) 0 % Normal 0-0 [facility] Comment on above: Performed By: #### 4 6447, 22033 ####[facility]3000 [facility].[address] PLAT CNT 200 10*3/uL Normal 150-400 The [facility] Comment on above: Performed By: #### 4 6447, 92719 ####[address] RBC Auto #/vol (Bld) 5.21 10*6/uL High 3.80-5.00 Th [facility] Comment on above: Performed By: #### 4 6447, 12085 ####[facility]3000 [facility].[address] WBC Auto #/vol (Bld) 7.04 10*3/uL Normal 4.00-10.60 Th [facility] Comment on above: Performed By: #### 4 8947, 97697 ####[facility]3000 [facility].[address] COMP METABOLIC PANELon 10-30 Albumin mass conc 4.1 g/dL Normal 3.5-5.7 [facility] Comment on above: Performed By: #### 4 6447, 24291 ####[place] [address] [facility].[address] ALKALINE PHOSPH 114 IU/L High 34-104 The [facility] Comment on above: Performed By: #### 4 6447, 42233 ####[facility] [place] [address], [place] ALT enzyme act/vol 16 U/L Normal 7-52 The [facility] Comment on above: Performed By: #### 4 3192, 98595 ####[facility] [place] [address], [place] AST enzyme act/vol 18 U/L Normal 13-39 The [facility] Comment on above: Performed By: #### 4 6154, 58325 ####[facility] [place] [address], [place] Bilirubin mass conc 0.4 mg/dL Normal 0.3-1.0 [facility] Comment on above: Performed By: #### 4 0490, 35301 ####[facility] [id number], [facility] Calcium mass conc 9.7 mg/dL Normal 8.6-10.3 [facility] Comment on above: Performed By: #### 4 7357, 83150 ####[facility] [place] [address], [facility] Chloride molar conc 105 mmol/L Normal 98-107 The [facility] Comment on above: Performed By: #### 4 7411, 23475 ####[facility] [place] [address], [place] CO2 molar conc 28 mmol/L Normal 21-31 The [facility] Comment on above: Performed By: #### 4 7417, 73452 ####[facility] [place] [address], [place] Creatinine mass conc 0.82 mg/dL Normal 0.60-1.20 [facility] Comment on above: Performed By: #### 6 5437, 95050 ####[facility] [place] [address], [place] GFR/1.73 sq M predicted among blacks MDRD vol rate/area (S/P/Bld) mL/min/{1.73_m2} Normal >60 The [facility] Comment on above: Performed By: #### 4 5956, 13306 ####[facility] [place] [address], [place] GFR/1.73 sq M predicted among non-blacks MDRD vol rate/area (S/P/Bld) mL/min/{1.73_m2} Normal >60 The [facility] Comment on above: Performed By: #### 2 9274, 48288 ####[facility] [place] [address], [place] Glucose mass conc 90 mg/dL Normal 70-100 The [facility] Comment on above: Performed By: #### 0 2683, 49069 ####[facility] [place] [address], [place] Potassium molar conc 4.1 mmol/L Normal 3.5-5.1 [facility] Comment on above: Performed By: #### 3 5755, 68429 ####[facility] [place] [address], [place] Protein mass conc 6.9 g/dL Normal 6.0-8.3 The [facility] Comment on above: Performed By: #### 3 2943, 12024 ####[facility] [place] [address], [place] Sodium molar conc 138 mmol/L Normal 136-145 The [facility] Comment on above: Performed By: #### 2 0018, 50659 ####[facility] [place] [address], [place] Urea nitrogen mass conc 16 mg/dL Normal 7-25 The [facility] Comment on above: Performed By: #### 4 6447, 91333 ####[facility] [place] [address], [facility] DIRECT BILIon 10-30-2017 Bilirubin.direct mass conc 0.0 mg/dL Normal 0.0-0.2 [facility] Comment on above: Performed By: #### 4 5506, 33219, 59486, 57303, 46220, 96258 ####[facility] EVEROLIMUS 60937kh 8 EVEROLIMUS 6.0 ng/mL Normal The [facility] Comment on above: Result [...] the transplantcenter.Test developed and characteristics determined by [facility]. See Compliance Statement B: [place] [facility]/CSPerformed by [facility],[address] [place] [address] wby.[place], Leonid Antonio MD - Lab. Director LIPID PROFILEon 10-30-2017 Cholesterol in HDL mass conc 50 mg/dL Normal 23-92 The [facility] Comment on above: Result Comment: Slig ht variation in normal range could be due to gender and/or age.HDL CHOLESTEROL REFERENCE RANGE:20 years and older Cardiovascular Risk> or =60 mg/dL Doitfhkjr25 TO 59 mg/dL Low Risk<40 mg/dL High Risk Performed By: #### 4 5506, 33305, 56059, 26685, 34342, 34658 ####[facility] [place] [address], [place] Cholesterol in LDL mass conc 85 mg/dL Normal 0-130 The [facility] Comment on above: Result Comment: LDL IS A CALCULATIONLDL IS ONLY VALID IF THE TRIG IS LESS THAN 400. Performed By: #### 4 5506, 09965, 15082, 26095, 75857, 56281 ####[facility] [place] [address], [facility] Cholesterol mass conc 152 mg/dL Normal 120-200 The [facility] Comment on above: Result Comment: CHOL ESTEROL REFERENCE RANGE:20 YEARS AND OLDER CARDIOVASCULAR RISKLess than 200 mg/dl Low Efsd976 to 239 mg/dl Borderline Vsja464 mg/dl and greater High Risk Performed By: #### 4 5506, 33611, 09632, 90751, 09354, 28555 ####[facility] [place] [address], [facility] Cholesterol.total/Cho lesterol in HDL mass ratio 3.0 {ratio} Normal .0-4.5 [facility] Comment on above: Performed By: #### 4 5506, 89563, 99741, 27479, 15982, 33133 ####[facility] [place] [address], [place] NON-HDL CHOLESTEROL 102 mg/dL Normal The [facility] Comment on above: Performed By: #### 4 5506, 35167, 19182, 30415, 42798, 52209 ####[facility] [place] [address], [place] Triglyceride mass conc 87 mg/dL Normal 40-149 [facility] Comment on above: Result Comment: TRIG LYCERIDE REFERENCE RANGE:20 YEARS AND OLDER CARDIOVASCULAR RISKLESS THAN 150 mg/dl LOW [id number] TO 199 mg/dl BORDERLINE [id number] mg/dl AND GREATER HIGH RISK Performed By: #### 4 5506, 56256, 74024, 10349, 21578, 93853 ####[facility] VLDL CHOL 17 mg/dL Normal 0-40 [facility] Comment on above: Performed By: #### 4 5506, 48547, 21103, 16657, 98114, 34110 ####[facility] [place] [address], [facility] MAGNESIUM BLOODon 10-30-2017 Magnesium mass conc 1.9 mg/dL Normal 1.9-2.7 [facility] Comment on above: Performed By: #### 4 5506, 84507, 25647, 27849, 91985, 26236 ####[facility] [place] [address], [facility] PHOSPHORUS BLOODon 8 Phosphate mass conc 3.7 mg/dL Normal 2.5-5.0 [facility] Comment on above: Performed By: #### 4 5506, 62608, 81755, 71822, 80662, 14965 ####[facility] TACROLIMUSon 10-30-2017 Tacrolimus mass conc (Bld) 7.1 ng/mL Normal 5.0-20.0 [facility] Comment on above: Result Comment: The [facility] Tacrolimus assay is a delayed one-step immunoassayfor the quantitative determination of tacrolimus in human whole bloodusing the chemiluminescent microparticle immunoassay (CMIA) technologywith flexible assay protocols, referred to as Chemiflex. Performed By: #### 9 9914 ####[facility] [place] [address], [facility] URIC ACID BLOODon 10-30-2017 Urate mass conc 4.6 mg/dL Normal 2.3-6.6 The [facility] Comment on above: Performed By: #### 4 2647, 84457 ####[place] [id number] [address] CBC W/DIFFon 10-23-2017 ABS BASOPHILS 0.0 10*3/uL Normal 0.0-0.2 The [facility] Comment on above: Performed By: #### 4 5647, 48806 ####[facility] ABS IMM GRANS 0.1 10*3/uL Normal 0.0-0.2 The [facility] Comment on above: Performed By: #### 4 5147, 64101 ####[address] ABS NEUTROPHILS 5.8 10*3/uL Normal 1.6-7.6 The [facility] Comment on above: Performed By: #### 4 8947, 91337 ####[place] [address] [address] Basophils Auto #/vol (Bld) 0.2 % Normal 0.0-1.0 [facility] Comment on above: Performed By: #### 4 4347, 70467 ####[place] [address] Eosinophils Auto #/vol (Bld) 0.1 10*3/uL Normal 0.0-0.5 [facility] Comment on above: Performed By: #### 4 0747, 51478 ####[address] Eosinophils/100 WBC Auto (Bld) 0.7 % Normal 0.0-6.0 [facility] Comment on above: Performed By: #### 4 3199, 94750 ####[facility]3000 [facility].[address] Erythrocyte distribution width Auto Ratio (RBC) 14.6 % Normal 11.5-15.0 [facility] Comment on above: Performed By: #### 6 6147, 91707 ####[facility]3000 [facility].[address] Hematocrit Auto Volume Fraction (Bld) 44.2 % Normal 36.0-45.0 The [facility] Comment on above: Performed By: #### 4 5857, 42035 ####[place] [address] Hemoglobin mass conc (Bld) 14.2 g/dL Normal 12.0-15.0 [facility] Comment on above: Performed By: #### 9 8165, 75107 ####[address] IMMATURE GRANS 1.4 % High 0.0-1.0 The [facility] Comment on above: Performed By: #### 7 1704, 29253 ####[address] Lymphocytes Auto #/vol (Bld) 2.1 10*3/uL Normal 1.2-4.0 [facility] Comment on above: Performed By: #### 4 2514, 88210 ####[facility] [facility].[address] Lymphocytes/100 WBC Auto (Bld) 22.5 % Normal 20.0-45.0 [facility] Comment on above: Performed By: #### 2 9478, 55182 ####[facility]3000 [facility].[address] MCH Auto Entitic mass (RBC) 28.5 pg Normal 27.0-33.0 [facility] Comment on above: Performed By: #### 4 0647, 54865 ####[facility]3000 [facility].[address] MCHC Auto mass conc (RBC) 32.1 g/dL Normal 32.0-35.0 [facility] Comment on above: Performed By: #### 4 5150, 88662 ####[facility] MCV Auto Entitic volume (RBC) 88.8 fL Normal 82.0-98.0 [facility] Comment on above: Performed By: #### 4 2578, 35926 ####[facility] [facility].[address] Monocytes Auto #/vol (Bld) 1.1 10*3/uL High 0.1-1.0 [facility] Comment on above: Performed By: #### 4 4302, 26223 ####[facility] [facility].[address] MONOS 12.0 % Normal 5.0-12.0 [facility] Comment on above: Performed By: #### 4 8574, 97186 ####[facility]3000 [facility].[address] Neutrophils/100 WBC Auto (Bld) 63.2 % Normal 40.0-72.0 [facility] Comment on above: Performed By: #### 4 5646, 62228 ####[facility] [facility].[address] Nucleated RBC/100 WBC Ratio (Bld) 0 % Normal 0-0 [facility] Comment on above: Performed By: #### 8 4258, 99439 ####[facility] [place] [address], [facility] PLAT CNT 241 10*3/uL Normal 150-400 The [facility] Comment on above: Performed By: #### 4 6447, 45341 ####[facility] RBC Auto #/vol (Bld) 4.98 10*6/uL Normal 3.80-5.00 Th e [facility] Comment on above: Performed By: #### 4 6447, 34479 ####[facility] WBC Auto #/vol (Bld) 9.14 10*3/uL Normal 4.00-10.60 Th e [facility] Comment on above: Performed By: #### 4 6447, 37620 ####[facility] [facility].[address] COMP METABOLIC PANELon 10-23 Albumin mass conc 3.8 g/dL Normal 3.5-5.7 [facility] Comment on above: Performed By: #### 4 6447, 76173 ####[facility] [facility].[address] ALKALINE PHOSPH 96 IU/L Normal 34-104 The [facility] Comment on above: Performed By: #### 4 6447, 27713 ####[facility] ALT enzyme act/vol 15 U/L Normal 7-52 The [facility] Comment on above: Performed By: #### 4 6447, 30317 ####[facility] AST enzyme act/vol 13 U/L Normal 13-39 The [facility] Comment on above: Performed By: #### 4 6447, 82919 ####[facility] [place] [address], [place] Bilirubin mass conc 0.4 mg/dL Normal 0.3-1.0 [facility] Comment on above: Performed By: #### 3 9024, 89028 ####[facility] [place] [address], [place] Calcium mass conc 9.2 mg/dL Normal 8.6-10.3 [facility] Comment on above: Performed By: #### 4 6090, 37154 ####[facility] [place] [address], [place] Chloride molar conc 102 mmol/L Normal 98-107 [facility] Comment on above: Performed By: #### 8 0197, 59697 ####[facility] [place] [address], [place] CO2 molar conc 29 mmol/L Normal 21-31 The [facility] Comment on above: Performed By: #### 3 3297, 72298 ####[facility] [place] [address], [place] Creatinine mass conc 0.80 mg/dL Normal 0.60-1.20 [facility] Comment on above: Performed By: #### 7 7455, 57457 ####[facility] [facility] [place] [address], [place] GFR/1.73 sq M predicted among blacks MDRD vol rate/area (S/P/Bld) mL/min/{1.73_m2} Normal >60 The [facility] Comment on above: Performed By: #### 4 5066, 61982 ####[facility] [place] [address], [place] GFR/1.73 sq M predicted among non-blacks MDRD vol rate/area (S/P/Bld) mL/min/{1.73_m2} Normal >60 The [facility] Comment on above: Performed By: #### 6 2037, 90372 ####[facility] [facility].[address] Glucose mass conc 85 mg/dL Normal 70-100 The [facility] Comment on above: Performed By: #### 4 6447, 11621 ####[facility]3000 [facility].[address] Potassium molar conc 3.3 mmol/L Low 3.5-5.1 The [facility] Comment on above: Performed By: #### 4 6447, 19429 ####[facility]3000 [facility].[address] Protein mass conc 6.5 g/dL Normal 6.0-8.3 The [facility] Comment on above: Performed By: #### 4 6447, 71247 ####[facility] [facility].[address] Sodium molar conc 139 mmol/L Normal 136-145 The [facility] Comment on above: Performed By: #### 4 6447, 03185 ####[facility] [facility].[address] Urea nitrogen mass conc 18 mg/dL Normal 7-25 The [facility] Comment on above: Performed By: #### 4 6447, 24788 ####[facility]3000 [facility].[address] DIRECT BILIon 10-23-2017 Bilirubin.direct mass conc 0.1 mg/dL Normal 0.0-0.2 The [facility] Comment on above: Performed By: #### 4 6447, 35230 ####[facility]3000 [facility].[address] EVEROLIMUS [id number] 8 EVEROLIMUS 4.0 ng/mL Normal The [facility] Comment on above: Result [...] the transplantcenter.Test developed and characteristics determined by [facility]. See Compliance Statement B: [facility]/CSPerformed by [facility],[address] [place] [id number] ddk.[facility], Leonid Antonio MD - Lab. Director LIPID PROFILEon 10-23-2017 Cholesterol in HDL mass conc 53 mg/dL Normal 23-92 The [facility] Comment on above: Result Comment: Slig ht variation in normal range could be due to gender and/or age.HDL CHOLESTEROL REFERENCE RANGE:20 years and older Cardiovascular Risk> or =60 mg/dL [id number] TO 59 mg/dL Low Risk<40 mg/dL High Risk Performed By: #### 1 6650, 41204 ####[facility] [place] [address], [facility] Cholesterol in LDL mass conc 68 mg/dL Normal 0-130 The [facility] Comment on above: Result Comment: LDL IS A CALCULATIONLDL IS ONLY VALID IF THE TRIG IS LESS THAN 400. Performed By: #### 6 4724, 38761 ####[facility] [place] [address], [facility] Cholesterol mass conc 135 mg/dL Normal 120-200 [facility] Comment on above: Result Comment: CHOL ESTEROL REFERENCE RANGE:20 YEARS AND OLDER CARDIOVASCULAR RISKLess than 200 mg/dl Low Oaac399 to 239 mg/dl Borderline Dcdy116 mg/dl and greater High Risk Performed By: #### 4 7592, 05471 ####[facility] [facility].[address] Cholesterol.total/Cho lesterol in HDL mass ratio 2.5 {ratio} Normal .0-4.5 [facility] Comment on above: Performed By: #### 4 2235, 20478 ####[facility] [facility].[address] NON-HDL CHOLESTEROL 82 mg/dL Normal [facility] Comment on above: Performed By: #### 4 2472, 30947 ####[facility] [facility].[address] Triglyceride mass conc 72 mg/dL Normal 40-149 [facility] Comment on above: Result Comment: TRIG LYCERIDE REFERENCE RANGE:20 YEARS AND OLDER CARDIOVASCULAR RISKLESS THAN 150 mg/dl LOW [id number] TO 199 mg/dl BORDERLINE [id number] mg/dl AND GREATER HIGH RISK Performed By: #### 4 5336, 17283 ####[facility] [facility].[address] VLDL CHOL 14 mg/dL Normal 0-40 [facility] Comment on above: Performed By: #### 4 4336, 81095 ####[facility] [facility] [place] [address], [facility] MAGNESIUM BLOODon 10-23-2017 Magnesium mass conc 1.8 mg/dL Low 1.9-2.7 [facility] Comment on above: Performed By: #### 4 3101, 86135 ####[facility] [facility] [place] [address], [facility] PHOSPHORUS BLOODon 8 Phosphate mass conc 3.7 mg/dL Normal 2.5-5.0 [facility] Comment on above: Performed By: #### 4 6447, 72611 ####[facility] TACROLIMUSon 10-23-2017 Tacrolimus mass conc (Bld) 2.6 ng/mL Low 5.0-20.0 The [facility] Comment on above: Result Comment: The [facility] Tacrolimus assay is a delayed one-step immunoassayfor the quantitative determination of tacrolimus in human whole bloodusing the chemiluminescent microparticle immunoassay (CMIA) technologywith flexible assay protocols, referred to as Chemiflex. Performed By: #### 4 6447, 26106 ####[place] [id number] URIC ACID BLOODon 10-23-2017 Urate mass conc 4.3 mg/dL Normal 2.3-6.6 The [facility] Comment on above: Performed By: #### 4 6447, 78893 ####[facility] CBC W/DIFFon 09-25-2017 ABS BASOPHILS 0.0 10*3/uL Normal 0.0-0.2 The [facility] Comment on above: Performed By: #### 4 1000, 23913, 70096, 52128, 56589, 76567 ####[facility] ABS IMM GRANS 0.0 10*3/uL Normal 0.0-0.2 The [facility] Comment on above: Performed By: #### 4 1000, 64705, 07598, 94212, 37320, 86247 ####[facility] [place] [address] ABS NEUTROPHILS 4.4 10*3/uL Normal 1.6-7.6 The [facility] Comment on above: Performed By: #### 4 1000, 84740, 33749, 72462, 81459, 47801 ####[facility] [place] [address], [facility] Basophils Auto #/vol (Bld) 0.2 % Normal 0.0-1.0 [facility] Comment on above: Performed By: #### 4 1000, 27955, 95561, 07087, 19186, 16844 ####[facility] Eosinophils Auto #/vol (Bld) 0.1 10*3/uL Normal 0.0-0.5 [facility] Comment on above: Performed By: #### 4 1000, 86038, 04207, 72304, 09224, 82581 ####[facility] Eosinophils/100 WBC Auto (Bld) 2.2 % Normal 0.0-6.0 [facility] Comment on above: Performed By: #### 4 1000, 33202, 64436, 04688, 72487, 15945 ####[facility] Erythrocyte distribution width Auto Ratio (RBC) 14.0 % Normal 11.5-15.0 [facility] Comment on above: Performed By: #### 4 1000, 43321, 98723, 63666, 11576, 30109 ####[facility] Hematocrit Auto Volume Fraction (Bld) 44.8 % Normal 36.0-45.0 The [facility] Comment on above: Performed By: #### 4 1000, 79088, 35896, 47515, 51372, 42115 ####[facility] Hemoglobin mass conc (Bld) 14.5 g/dL Normal 12.0-15.0 [facility] Comment on above: Performed By: #### 4 1000, 84475, 80799, 02416, 65342, 33448 ####[facility] [facility].[address] IMMATURE GRANS 0.3 % Normal 0.0-1.0 The [facility] Comment on above: Performed By: #### 4 1000, 68462, 03411, 62739, 82434, 88032 ####[facility] [facility].[address] Lymphocytes Auto #/vol (Bld) 1.1 10*3/uL Low 1.2-4.0 [facility] Comment on above: Performed By: #### 4 1000, 30369, 78570, 73389, 35255, 92763 ####[facility] [facility].[address] Lymphocytes/100 WBC Auto (Bld) 17.0 % Low 20.0-45.0 The [facility] Comment on above: Performed By: #### 4 1000, 66562, 49421, 81714, 18261, 47194 ####[facility] [facility].[address] MCH Auto Entitic mass (RBC) 28.6 pg Normal 27.0-33.0 The [facility] Comment on above: Performed By: #### 4 1000, 64458, 46609, 27353, 22289, 62535 ####[facility] [facility].[address] MCHC Auto mass conc (RBC) 32.4 g/dL Normal 32.0-35.0 [facility] Comment on above: Performed By: #### 4 1000, 17650, 62349, 15345, 76233, 48606 ####[facility] [facility].[address] MCV Auto Entitic volume (RBC) 88.4 fL Normal 82.0-98.0 The [facility] Comment on above: Performed By: #### 4 1000, 74703, 59235, 54146, 77668, 98729 ####[facility] Monocytes Auto #/vol (Bld) 0.7 10*3/uL Normal 0.1-1.0 [facility] Comment on above: Performed By: #### 4 1000, 55801, 43630, 48170, 31349, 28188 ####[facility] MONOS 11.5 % Normal 5.0-12.0 The [facility] Comment on above: Performed By: #### 4 1000, 83400, 46386, 71478, 30162, 72004 ####[facility] Neutrophils/100 WBC Auto (Bld) 68.8 % Normal 40.0-72.0 The [facility] Comment on above: Performed By: #### 4 1000, 21059, 24183, 88981, 36951, 95369 ####[facility] Nucleated RBC/100 WBC Ratio (Bld) 0 % Normal 0-0 The [facility] Comment on above: Performed By: #### 4 1000, 16806, 57644, 64920, 66686, 52650 ####[facility] PLAT CNT 212 10*3/uL Normal 150-400 The [facility] Comment on above: Performed By: #### 4 1000, 90871, 25479, 59617, 20494, 73343 ####[facility] RBC Auto #/vol (Bld) 5.07 10*6/uL High 3.80-5.00 Th e [facility] Comment on above: Performed By: #### 4 1000, 92443, 90989, 78646, 37375, 43139 ####[facility] [place] [address], [facility] WBC Auto #/vol (Bld) 6.34 10*3/uL Normal 4.00-10.60 Th e [facility] Comment on above: Performed By: #### 4 1000, 62974, 85062, 40433, 63864, 26860 ####[facility] COMP METABOLIC PANELon 09-25 Albumin mass conc 4.0 g/dL Normal 3.5-5.7 The [facility] Comment on above: Performed By: #### 4 6447, 39027 ####[facility] ALKALINE PHOSPH 112 IU/L High 34-104 The [facility] Comment on above: Performed By: #### 4 6447, 87340 ####[facility] ALT enzyme act/vol 11 U/L Normal 7-52 [facility] Comment on above: Performed By: #### 4 6447, 09887 ####[facility] AST enzyme act/vol 17 U/L Normal 13-39 [facility] Comment on above: Performed By: #### 4 6447, 20685 ####[facility] [place] [address], [facility] Bilirubin mass conc 0.5 mg/dL Normal 0.3-1.0 [facility] Comment on above: Performed By: #### 4 3947, 03792 ####[facility] [place] [address], [place] Calcium mass conc 9.6 mg/dL Normal 8.6-10.3 [facility] Comment on above: Performed By: #### 4 6647, 45741 ####[facility] [place] [address], [place] Chloride molar conc 104 mmol/L Normal 98-107 [facility] Comment on above: Performed By: #### 4 7117, 67789 ####[facility] [place] [address], [place] CO2 molar conc 28 mmol/L Normal 21-31 [facility] Comment on above: Performed By: #### 4 3607, 67118 ####[facility] [place] [address], [place] Creatinine mass conc 0.83 mg/dL Normal 0.60-1.20 [facility] Comment on above: Performed By: #### 4 1456, 18107 ####[facility] [place] [address], [place] GFR/1.73 sq M predicted among blacks MDRD vol rate/area (S/P/Bld) mL/min/{1.73_m2} Normal >60 [facility] Comment on above: Performed By: #### 4 5570, 44543 ####[facility] [place] [address], [place] GFR/1.73 sq M predicted among non-blacks MDRD vol rate/area (S/P/Bld) mL/min/{1.73_m2} Normal >60 [facility] Comment on above: Performed By: #### 7 8747, 08077 ####[facility] Glucose mass conc 91 mg/dL Normal 70-100 The [facility] Comment on above: Performed By: #### 4 6447, 06141 ####[facility] [facility] Potassium molar conc 3.9 mmol/L Normal 3.5-5.1 The [facility] Comment on above: Performed By: #### 4 6447, 19094 ####[facility] Protein mass conc 7.0 g/dL Normal 6.0-8.3 The [facility] Comment on above: Performed By: #### 4 6447, 91013 ####[facility] [facility].[address] Sodium molar conc 140 mmol/L Normal 136-145 The [facility] Comment on above: Performed By: #### 4 6447, 10558 ####[facility] [facility].[address] Urea nitrogen mass conc 15 mg/dL Normal 7-25 The [facility] Comment on above: Performed By: #### 4 6447, 83477 ####[facility] [facility].[address] DIRECT BILIon 09-25-2017 Bilirubin.direct mass conc 0.1 mg/dL Normal 0.0-0.2 The [facility] Comment on above: Performed By: #### 4 6447, 32995 ####[facility] [place] [address].[address] EVEROLIMUS [id number] 8 EVEROLIMUS 5.1 ng/mL Normal The [facility] Comment on above: Result [...] the transplantcenter.Test developed and characteristics determined by [facility]. See Compliance Statement B: [place]/CSPerformed by [facility],[address] [place] [address]55 bmd.[facility], Leonid Antonio MD - Lab. Director LIPID PROFILEon 09-25-2017 Cholesterol in HDL mass conc 48 mg/dL Normal 23-92 [facility] Comment on above: Result Comment: Slig ht variation in normal range could be due to gender and/or age.HDL CHOLESTEROL REFERENCE RANGE:20 years and older Cardiovascular Risk> or =60 mg/dL [id number] TO 59 mg/dL Low Risk<40 mg/dL High Risk Performed By: #### 4 9171, 10490 ####[facility].[address] Cholesterol in LDL mass conc 69 mg/dL Normal 0-130 [facility] Comment on above: Result Comment: LDL IS A CALCULATIONLDL IS ONLY VALID IF THE TRIG IS LESS THAN 400. Performed By: #### 5 8507, 51876 ####[facility] Cholesterol mass conc 138 mg/dL Normal 120-200 [facility] Comment on above: Result Comment: CHOL ESTEROL REFERENCE RANGE:20 YEARS AND OLDER CARDIOVASCULAR RISKLess than 200 mg/dl Low Dzbs930 to 239 mg/dl Borderline Muer877 mg/dl and greater High Risk Performed By: #### 4 6006, 96621 ####[facility] Cholesterol.total/Cho lesterol in HDL mass ratio 2.9 {ratio} Normal .0-4.5 [facility] Comment on above: Performed By: #### 4 4447, 89110 ####[facility] [facility].[address] NON-HDL CHOLESTEROL 90 mg/dL Normal The [facility] Comment on above: Performed By: #### 4 4834, 34712 ####[facility].[address] Triglyceride mass conc 103 mg/dL Normal 40-149 [facility] Comment on above: Result Comment: TRIG LYCERIDE REFERENCE RANGE:20 YEARS AND OLDER CARDIOVASCULAR RISKLESS THAN 150 mg/dl LOW BRUD430 TO 199 mg/dl BORDERLINE HPMX833 mg/dl AND GREATER HIGH RISK Performed By: #### 4 0268, 70072 ####[facility] VLDL CHOL 21 mg/dL Normal 0-40 [facility] Comment on above: Performed By: #### 4 1363, 94615 ####[facility] [facility].[address] MAGNESIUM BLOODon 09-25-2017 Magnesium mass conc 1.8 mg/dL Low 1.9-2.7 [facility] Comment on above: Performed By: #### 4 6493, 75178 ####[facility] PHOSPHORUS BLOODon 8 Phosphate mass conc 3.4 mg/dL Normal 2.5-5.0 [facility] Comment on above: Performed By: #### 4 6447, 79543 ####[facility] [facility].[address] TACROLIMUSon 09-25-2017 Tacrolimus mass conc (Bld) 3.6 ng/mL Low 5.0-20.0 [facility] Comment on above: Result Comment: The [facility] Tacrolimus assay is a delayed one-step immunoassayfor the quantitative determination of tacrolimus in human whole bloodusing the chemiluminescent microparticle immunoassay (CMIA) technologywith flexible assay protocols, referred to as Chemiflex. Performed By: #### 4 6447, 50810 ####[address] URIC ACID BLOODon 09-25-2017 Urate mass conc 4.7 mg/dL Normal 2.3-6.6 The [facility] Comment on above: Performed By: #### 4 6447, 93447 ####[address] BK VIRUS QUANTITATION PCR BL OODon 08-26-2017 BKV QUANT PCR Not detected Normal The [facility] Comment on above: Result Comment: Meth od: BK virus was measured by quantitative polymerase chain reactionusing a TaqMan probe targeting the polyomavirus BK MEDICAL ILLUSTRATOR-1 gene.The lower limit of quantitation of the assay is 500 copies of BK genomeper milliliter of plasma or urine, and any detectable BK DNA below thatlevel is reported as: Detected, <500 copies/ml. Serial BK virusmeasurement can be used to monitor disease activity. (Reference:Kelsie vaughanl. J CLIN MICRO 2004; 42:3689-8346).This test was developed and its performance characteristics determinedby the [facility]. It has not been approvedby the US Food and Drug Administration. However, such approval is notrequired for clinical implementation, and test results have been shownto be clinically useful. This laboratory is CAP accredited and CLIAcertified to perform high complexity testing. Performed By: #### 4 1000, 89098, 67910, 96453, 92183, 71572 ####[place] [id number] [address] LOG 10 COPIES Not detected Normal The [facility] Comment on above: Performed By: #### 4 1000, 12639, 68969, 91038, 45578, 71251 ####[facility] CBC W/DIFFon 08-26-2017 ABS BASOPHILS 0.0 10*3/uL Normal 0.0-0.2 The [facility] Comment on above: Performed By: #### 4 1000, 44451, 89244, 73776, 30355, 90339 ####[facility] ABS IMM GRANS 0.0 10*3/uL Normal 0.0-0.2 The [facility] Comment on above: Performed By: #### 4 1000, 89580, 09161, 93793, 98991, 38977 ####[facility] ABS NEUTROPHILS 4.5 10*3/uL Normal 1.6-7.6 The [facility] Comment on above: Performed By: #### 4 1000, 39150, 45425, 65850, 75680, 63378 ####[facility] Basophils Auto #/vol (Bld) 0.2 % Normal 0.0-1.0 [facility] Comment on above: Performed By: #### 4 1000, 97324, 46892, 62559, 92681, 11597 ####[facility] Eosinophils Auto #/vol (Bld) 0.2 10*3/uL Normal 0.0-0.5 [facility] Comment on above: Performed By: #### 4 1000, 10596, 12466, 72846, 94629, 11715 ####[facility] [facility].[address] Eosinophils/100 WBC Auto (Bld) 2.4 % Normal 0.0-6.0 [facility] Comment on above: Performed By: #### 4 1000, 97644, 62260, 22531, 42343, 84994 ####[facility] [facility].[address] Erythrocyte distribution width Auto Ratio (RBC) 14.0 % Normal 11.5-15.0 [facility] Comment on above: Performed By: #### 4 1000, 85997, 05178, 85342, 74075, 84789 ####[facility] [facility].[address] Hematocrit Auto Volume Fraction (Bld) 44.9 % Normal 36.0-45.0 The [facility] Comment on above: Performed By: #### 4 1000, 32071, 64832, 23511, 68433, 13730 ####[facility] [facility].[address] Hemoglobin mass conc (Bld) 14.9 g/dL Normal 12.0-15.0 [facility] Comment on above: Performed By: #### 4 1000, 93086, 63873, 79136, 17610, 29098 ####[facility] [facility].[address] IMMATURE GRANS 0.5 % Normal 0.0-1.0 The [facility] Comment on above: Performed By: #### 4 1000, 19620, 42217, 94267, 05651, 43730 ####[facility] [facility].[address] Lymphocytes Auto #/vol (Bld) 1.0 10*3/uL Low 1.2-4.0 [facility] Comment on above: Performed By: #### 4 1000, 47207, 98836, 05691, 23100, 21184 ####[facility].[address] Lymphocytes/100 WBC Auto (Bld) 15.8 % Low 20.0-45.0 [facility] Comment on above: Performed By: #### 4 1000, 57716, 01336, 42551, 68583, 91046 ####[facility] MCH Auto Entitic mass (RBC) 29.1 pg Normal 27.0-33.0 [facility] Comment on above: Performed By: #### 4 1000, 32823, 16981, 28025, 47018, 82173 ####[facility] [facility].[address] MCHC Auto mass conc (RBC) 33.2 g/dL Normal 32.0-35.0 [facility] Comment on above: Performed By: #### 4 1000, 54385, 20792, 96670, 99420, 12208 ####[facility] [facility].[address] MCV Auto Entitic volume (RBC) 87.7 fL Normal 82.0-98.0 [facility] Comment on above: Performed By: #### 4 1000, 21502, 46953, 30585, 31435, 64039 ####[facility] [facility].[address] Monocytes Auto #/vol (Bld) 0.7 10*3/uL Normal 0.1-1.0 [facility] Comment on above: Performed By: #### 4 1000, 71218, 07957, 36035, 94128, 49439 ####[facility] MONOS 10.6 % Normal 5.0-12.0 [facility] Comment on above: Performed By: #### 4 1000, 32375, 52420, 80954, 54374, 39705 ####[facility] Neutrophils/100 WBC Auto (Bld) 70.5 % Normal 40.0-72.0 [facility] Comment on above: Performed By: #### 4 1000, 66355, 21882, 78662, 61921, 84659 ####[facility] Nucleated RBC/100 WBC Ratio (Bld) 0 % Normal 0-0 [facility] Comment on above: Performed By: #### 4 1000, 71434, 85999, 14222, 22912, 46317 ####[facility] PLAT CNT 231 10*3/uL Normal 150-400 The [facility] Comment on above: Performed By: #### 4 1000, 50199, 19663, 39040, 24377, 21980 ####[facility] RBC Auto #/vol (Bld) 5.12 10*6/uL High 3.80-5.00 Th e [facility] Comment on above: Performed By: #### 4 1000, 49541, 75024, 54337, 21062, 16904 ####[facility] [place] [address], [facility] WBC Auto #/vol (Bld) 6.32 10*3/uL Normal 4.00-10.60 Th e [facility] Comment on above: Performed By: #### 4 1000, 82499, 93781, 65556, 26657, 16643 ####[facility] COMP METABOLIC PANELon 08-26 Albumin mass conc 4.3 g/dL Normal 3.5-5.7 The [facility] Comment on above: Performed By: #### 4 1000, 29487, 26758, 14595, 85626, 70743 ####[facility] [place] [address], [facility] ALKALINE PHOSPH 125 IU/L High 34-104 The [facility] Comment on above: Performed By: #### 4 1000, 37432, 33776, 36151, 29057, 56283 ####[facility] [place] [address], [facility] ALT enzyme act/vol 17 U/L Normal 7-52 The [facility] Comment on above: Performed By: #### 4 1000, 67177, 89818, 96129, 30810, 08893 ####[facility] [place] [address], [place] AST enzyme act/vol 23 U/L Normal 13-39 The [facility] Comment on above: Performed By: #### 4 1000, 36766, 58925, 67155, 96368, 46637 ####[facility] [place] [address], [facility] Bilirubin mass conc 0.4 mg/dL Normal 0.3-1.0 The [facility] Comment on above: Performed By: #### 4 1000, 52751, 13824, 20389, 78381, 28529 ####[facility] [place] [address], [place] Calcium mass conc 9.6 mg/dL Normal 8.6-10.3 The [facility] Comment on above: Performed By: #### 4 1000, 44716, 34991, 46973, 24351, 41642 ####[facility] [place] [address], [place] Chloride molar conc 104 mmol/L Normal 98-107 The [facility] Comment on above: Performed By: #### 4 1000, 83222, 87467, 42973, 43301, 87449 ####[facility] [place] [address], [facility] CO2 molar conc 27 mmol/L Normal 21-31 The [facility] Comment on above: Performed By: #### 4 1000, 92192, 48501, 62911, 81488, 83755 ####[facility] [place] [address], [facility] Creatinine mass conc 0.77 mg/dL Normal 0.60-1.20 [facility] Comment on above: Performed By: #### 4 1000, 90254, 58288, 53301, 01390, 13801 ####[facility] [place] [address], [facility] GFR/1.73 sq M predicted among blacks MDRD vol rate/area (S/P/Bld) mL/min/{1.73_m2} Normal >60 The [facility] Comment on above: Performed By: #### 4 1000, 15732, 27216, 21531, 43880, 37360 ####[facility] [place] [address], [facility] GFR/1.73 sq M predicted among non-blacks MDRD vol rate/area (S/P/Bld) mL/min/{1.73_m2} Normal >60 The [facility] Comment on above: Performed By: #### 4 1000, 07358, 86525, 76115, 40036, 42246 ####[facility] [place] [address], [facility] Glucose mass conc 95 mg/dL Normal 70-100 [facility] Comment on above: Performed By: #### 4 1000, 65603, 94227, 17792, 09542, 04682 ####[facility] [place] [address], [facility] Potassium molar conc 4.1 mmol/L Normal 3.5-5.1 The [facility] Comment on above: Performed By: #### 4 1000, 42076, 71151, 68247, 04728, 28875 ####[facility] [place] [address], [facility] Protein mass conc 7.3 g/dL Normal 6.0-8.3 The [facility] Comment on above: Performed By: #### 4 1000, 96571, 89254, 00805, 06020, 15176 ####[facility] Sodium molar conc 139 mmol/L Normal 136-145 The [facility] Comment on above: Performed By: #### 4 1000, 66714, 37048, 40374, 37409, 12238 ####[facility] Urea nitrogen mass conc 12 mg/dL Normal 7-25 [facility] Comment on above: Performed By: #### 4 1000, 09374, 87329, 71956, 86707, 63259 ####[facility] DIRECT BILIon 08-26-2017 Bilirubin.direct mass conc 0.1 mg/dL Normal 0.0-0.2 The [facility] Comment on above: Performed By: #### 4 1000, 78655, 90138, 29729, 19496, 72894 ####[facility] [place] [address], [facility] EVEROLIMUS [id number] 8 EVEROLIMUS 5.6 ng/mL Normal The [facility] Comment on above: Result [...] the transplantcenter.Test developed and characteristics determined by [facility]. See Compliance Statement B: [place]/CSPerformed by [facility],[address] [place] [id number] drh.[facility], Leonid Antonio MD - Lab. Director HEMOGLOBIN A1Con 08-26-2017 Glucose mass conc 114 mg/dL Normal 70-126 [facility] Comment on above: Performed By: #### 4 1000, 62502, 88911, 64298, 46026, 55894 ####[facility] [place] [address], [facility] Hemoglobin A1c/Hemoglobin.total mass fraction (Bld) 5.6 % Normal 4.0-6.0 The [facility] Comment on above: Performed By: #### 4 1000, 45843, 85654, 80139, 13188, 37798 ####[facility] [facility] [place] [place] [address], [facility] LIPID PROFILEon 08-26-2017 Cholesterol in HDL mass conc 49 mg/dL Normal 23-92 [facility] Comment on above: Result Comment: Slig ht variation in normal range could be due to gender and/or age.HDL CHOLESTEROL REFERENCE RANGE:20 years and older Cardiovascular Risk> or =60 mg/dL [id number] TO 59 mg/dL Low Risk<40 mg/dL High Risk Performed By: #### 4 1000, 50688, 72245, 68762, 35178, 86689 ####[facility] [place] [address], [facility] Cholesterol in LDL mass conc 76 mg/dL Normal 0-130 The [facility] Comment on above: Result Comment: LDL IS A CALCULATIONLDL IS ONLY VALID IF THE TRIG IS LESS THAN 400. Performed By: #### 4 1000, 54424, 41488, 42853, 52184, 48914 ####[facility] [facility] [place] [address], [facility] Cholesterol mass conc 152 mg/dL Normal 120-200 [facility] Comment on above: Result Comment: CHOL ESTEROL REFERENCE RANGE:20 YEARS AND OLDER CARDIOVASCULAR RISKLess than 200 mg/dl Low Tdrm285 to 239 mg/dl Borderline Jpjh624 mg/dl and greater High Risk Performed By: #### 4 1000, 57540, 86443, 31534, 78704, 59104 ####[facility] [facility] [place] [address], [facility] Cholesterol.total/Cho lesterol in HDL mass ratio 3.1 {ratio} Normal .0-4.5 [facility] Comment on above: Performed By: #### 4 1000, 61340, 45323, 21662, 34616, 25848 ####[facility] [facility] [place] [address], [facility] NON-HDL CHOLESTEROL 103 mg/dL Normal The [facility] Comment on above: Performed By: #### 4 1000, 50380, 44772, 82529, 61518, 17551 ####[facility] [place] [address], [facility] Triglyceride mass conc 133 mg/dL Normal 40-149 The [facility] Comment on above: Result Comment: TRIG LYCERIDE REFERENCE RANGE:20 YEARS AND OLDER CARDIOVASCULAR RISKLESS THAN 150 mg/dl LOW [id number] TO 199 mg/dl BORDERLINE [id number] mg/dl AND GREATER HIGH RISK Performed By: #### 4 1000, 73485, 99255, 62795, 17121, 61422 ####[facility] [facility].[address] VLDL CHOL 27 mg/dL Normal 0-40 [facility] Comment on above: Performed By: #### 4 1000, 10759, 66187, 21331, 37290, 92916 ####[facility] [facility].[address] MAGNESIUM BLOODon 08-26-2017 Magnesium mass conc 1.9 mg/dL Normal 1.9-2.7 The [facility] Comment on above: Performed By: #### 4 1000, 62758, 88538, 18751, 23936, 82549 ####[facility] [facility].[address] PHOSPHORUS BLOODon 8 Phosphate mass conc 3.4 mg/dL Normal 2.5-5.0 [facility] Comment on above: Performed By: #### 4 1000, 24904, 40373, 40344, 68041, 18031 ####[facility] [facility].[address] TACROLIMUSon 08-26-2017 Tacrolimus mass conc (Bld) 4.3 ng/mL Low 5.0-20.0 The [facility] Comment on above: Result Comment: The [facility] Tacrolimus assay is a delayed one-step immunoassayfor the quantitative determination of tacrolimus in human whole bloodusing the chemiluminescent microparticle immunoassay (CMIA) technologywith flexible assay protocols, referred to as Chemiflex. Performed By: #### 4 1000, 78755, 57916, 83310, 89771, 60031 ####[facility] [facility].[address] URIC ACID BLOODon 08-26-2017 Urate mass conc 4.6 mg/dL Normal 2.3-6.6 The [facility] Comment on above: Performed By: #### 4 1000, 95298, 27506, 38132, 71778, 05772 ####[facility] CBC W/DIFFon 07-23-2017 ABS BASOPHILS 0.0 10*3/uL Normal 0.0-0.2 The [facility] Comment on above: Performed By: #### 4 1000, 26589, 59237, 34716, 40940, 71341 ####[facility] ABS IMM GRANS 0.0 10*3/uL Normal 0.0-0.2 The [facility] Comment on above: Performed By: #### 4 1000, 28959, 41152, 01939, 07099, 19703 ####[facility] ABS NEUTROPHILS 4.4 10*3/uL Normal 1.6-7.6 The [facility] Comment on above: Performed By: #### 4 1000, 85874, 76999, 51360, 53347, 53155 ####[facility] Basophils Auto #/vol (Bld) 0.2 % Normal 0.0-1.0 The [facility] Comment on above: Performed By: #### 4 1000, 39882, 68142, 96269, 05351, 47634 ####[facility] [facility].[address] Eosinophils Auto #/vol (Bld) 0.1 10*3/uL Normal 0.0-0.5 [facility] Comment on above: Performed By: #### 4 1000, 18247, 53012, 02327, 26964, 23398 ####[facility] [facility].[address] Eosinophils/100 WBC Auto (Bld) 2.1 % Normal 0.0-6.0 The [facility] Comment on above: Performed By: #### 4 1000, 39845, 81048, 05957, 05537, 96438 ####[place] [id number] [facility].[address] Erythrocyte distribution width Auto Ratio (RBC) 13.7 % Normal 11.5-15.0 The [facility] Comment on above: Performed By: #### 4 1000, 88868, 30200, 25758, 73496, 83076 ####[place] [id number] [facility].[address] Hematocrit Auto Volume Fraction (Bld) 44.4 % Normal 36.0-45.0 The [facility] Comment on above: Performed By: #### 4 1000, 51852, 82224, 29940, 48503, 79050 ####[place] [id number] [facility].[address] Hemoglobin mass conc (Bld) 14.7 g/dL Normal 12.0-15.0 The [facility] Comment on above: Performed By: #### 4 1000, 04005, 96954, 82077, 31420, 45845 ####[place] [id number] [facility].[address] IMMATURE GRANS 0.5 % Normal 0.0-1.0 The [facility] Comment on above: Performed By: #### 4 1000, 07246, 32608, 58744, 38750, 01985 ####[place] [id number] [facility].[address] Lymphocytes Auto #/vol (Bld) 1.0 10*3/uL Low 1.2-4.0 The [facility] Comment on above: Performed By: #### 4 1000, 87321, 49624, 81030, 65649, 47732 ####[facility] [facility].[address] Lymphocytes/100 WBC Auto (Bld) 15.5 % Low 20.0-45.0 The [facility] Comment on above: Performed By: #### 4 1000, 24133, 94543, 42417, 89594, 15286 ####[facility] MCH Auto Entitic mass (RBC) 28.9 pg Normal 27.0-33.0 The [facility] Comment on above: Performed By: #### 4 1000, 32812, 94264, 20304, 42347, 38617 ####[facility] [facility].[address] MCHC Auto mass conc (RBC) 33.1 g/dL Normal 32.0-35.0 The [facility] Comment on above: Performed By: #### 4 1000, 75932, 69171, 82371, 88687, 75494 ####[facility] [facility].[address] MCV Auto Entitic volume (RBC) 87.4 fL Normal 82.0-98.0 The [facility] Comment on above: Performed By: #### 4 1000, 93162, 72987, 45258, 92482, 97410 ####[facility] [facility].[address] Monocytes Auto #/vol (Bld) 0.8 10*3/uL Normal 0.1-1.0 The [facility] Comment on above: Performed By: #### 4 1000, 53397, 51589, 19532, 78512, 70349 ####[facility] MONOS 12.3 % High 5.0-12.0 The [facility] Comment on above: Performed By: #### 4 1000, 13807, 16837, 32892, 24170, 33939 ####[facility] Neutrophils/100 WBC Auto (Bld) 69.4 % Normal 40.0-72.0 [facility] Comment on above: Performed By: #### 4 1000, 18769, 29660, 27120, 38984, 51245 ####[facility] Nucleated RBC/100 WBC Ratio (Bld) 0 % Normal 0-0 The [facility] Comment on above: Performed By: #### 4 1000, 32645, 57953, 24522, 80443, 21699 ####[facility] [facility].[address] PLAT CNT 218 10*3/uL Normal 150-400 The [facility] Comment on above: Performed By: #### 4 1000, 11414, 86818, 00143, 07201, 00088 ####[facility] [facility] RBC Auto #/vol (Bld) 5.08 10*6/uL High 3.80-5.00 Th e [facility] Comment on above: Performed By: #### 4 1000, 93444, 71290, 82506, 82288, 60391 ####[facility] WBC Auto #/vol (Bld) 6.3 10*3/uL Normal 4.0-10.6 The [facility] Comment on above: Performed By: #### 4 1000, 73878, 30126, 85685, 72244, 21302 ####[facility] COMP METABOLIC PANELon 07-23 Albumin mass conc 4.2 g/dL Normal 3.5-5.7 The [facility] Comment on above: Performed By: #### 4 1000, 87969, 86208, 25404, 24613, 13303 ####[facility] [place] [address], [facility] ALKALINE PHOSPH 113 IU/L High 34-104 The [facility] Comment on above: Performed By: #### 4 1000, 91491, 77848, 66866, 64351, 57364 ####[facility] [place] [address], [facility] ALT enzyme act/vol 23 U/L Normal 7-52 The [facility] Comment on above: Performed By: #### 4 1000, 90158, 54021, 09656, 30079, 75778 ####[facility] [place] [address], [facility] AST enzyme act/vol 25 U/L Normal 13-39 The [facility] Comment on above: Performed By: #### 4 1000, 65760, 08643, 42621, 49750, 63502 ####[facility] [facility] [place] [address], [facility] Bilirubin mass conc 0.6 mg/dL Normal 0.3-1.0 The [facility] Comment on above: Performed By: #### 4 1000, 40725, 06222, 15566, 12141, 40738 ####[facility] [place] [address], [facility] Calcium mass conc 9.6 mg/dL Normal 8.6-10.3 The [facility] Comment on above: Performed By: #### 4 1000, 23073, 93041, 19059, 86533, 20481 ####[facility] [place] [address], [facility] Chloride molar conc 104 mmol/L Normal 98-107 The [facility] Comment on above: Performed By: #### 4 1000, 18110, 49921, 51875, 35775, 45534 ####[facility] [place] [address], [facility] CO2 molar conc 25 mmol/L Normal 21-31 The [facility] Comment on above: Performed By: #### 4 1000, 19178, 10330, 56244, 04469, 23795 ####[facility] [place] [address], [facility] Creatinine mass conc 0.80 mg/dL Normal 0.60-1.20 [facility] Comment on above: Performed By: #### 4 1000, 17962, 53918, 14133, 86150, 33077 ####[facility] [place] [address], [facility] GFR/1.73 sq M predicted among blacks MDRD vol rate/area (S/P/Bld) mL/min/{1.73_m2} Normal >60 The [facility] Comment on above: Performed By: #### 4 1000, 78763, 18137, 14088, 18873, 25718 ####[facility] [facility] [place] [address], [facility] GFR/1.73 sq M predicted among non-blacks MDRD vol rate/area (S/P/Bld) mL/min/{1.73_m2} Normal >60 The [facility] Comment on above: Performed By: #### 4 1000, 31947, 01143, 17900, 29422, 42058 ####[facility] [place] [address], [facility] Glucose mass conc 91 mg/dL Normal 70-100 [facility] Comment on above: Performed By: #### 4 1000, 96602, 21967, 70646, 93310, 62815 ####[facility] Potassium molar conc 4.0 mmol/L Normal 3.5-5.1 The [facility] Comment on above: Performed By: #### 4 1000, 15222, 16631, 31317, 48239, 15445 ####[facility] Protein mass conc 6.8 g/dL Normal 6.0-8.3 The [facility] Comment on above: Performed By: #### 4 1000, 84973, 84484, 06409, 55411, 40236 ####[facility] Sodium molar conc 140 mmol/L Normal 136-145 The [facility] Comment on above: Performed By: #### 4 1000, 48550, 66635, 24982, 48515, 71148 ####[facility] Urea nitrogen mass conc 16 mg/dL Normal 7-25 The [facility] Comment on above: Performed By: #### 4 1000, 80923, 79851, 57335, 61566, 19070 ####[facility] DIRECT BILIon 07-23-2017 Bilirubin.direct mass conc 0.2 mg/dL Normal 0.0-0.2 The [facility] Comment on above: Performed By: #### 4 1000, 56770, 37656, 29360, 33515, 95146 ####[facility] EVEROLIMUS [id number] 8 EVEROLIMUS 5.3 ng/mL Normal The [facility] Comment on above: Result [...] the transplantcenter.Test developed and characteristics determined by [facility]. See Compliance Statement B: [facility]/CSPerformed by [facility],[address] [place] [address] dnq.[facility], Leonid Antonio MD - Lab. Director LIPID PROFILEon 07-23-2017 Cholesterol in HDL mass conc 45 mg/dL Normal 23-92 [facility] Comment on above: Result Comment: Slig ht variation in normal range could be due to gender and/or age.HDL CHOLESTEROL REFERENCE RANGE:20 years and older Cardiovascular Risk> or =60 mg/dL [id number] TO 59 mg/dL Low Risk<40 mg/dL High Risk Performed By: #### 4 1000, 60567, 51042, 93643, 12760, 64590 ####[facility] [place] [address], [facility] Cholesterol in LDL mass conc 79 mg/dL Normal 0-130 The [facility] Comment on above: Result Comment: LDL IS A CALCULATIONLDL IS ONLY VALID IF THE TRIG IS LESS THAN 400. Performed By: #### 4 1000, 41454, 05093, 82341, 43418, 94717 ####[facility] [place] [address], [facility] Cholesterol mass conc 141 mg/dL Normal 120-200 The [facility] Comment on above: Result Comment: CHOL ESTEROL REFERENCE RANGE:20 YEARS AND OLDER CARDIOVASCULAR RISKLess than 200 mg/dl Low Wmvf992 to 239 mg/dl Borderline Ittu555 mg/dl and greater High Risk Performed By: #### 4 1000, 64432, 84452, 90741, 69583, 64588 ####[facility] Cholesterol.total/Cho lesterol in HDL mass ratio 3.1 {ratio} Normal .0-4.5 The [facility] Comment on above: Performed By: #### 4 1000, 29067, 12786, 24821, 71622, 35551 ####[facility] NON-HDL CHOLESTEROL 96 mg/dL Normal The [facility] Comment on above: Performed By: #### 4 1000, 11816, 01949, 27778, 68898, 91516 ####[facility] Triglyceride mass conc 83 mg/dL Normal 40-149 The [facility] Comment on above: Result Comment: TRIG LYCERIDE REFERENCE RANGE:20 YEARS AND OLDER CARDIOVASCULAR RISKLESS THAN 150 mg/dl LOW [id number] TO 199 mg/dl BORDERLINE ELSC989 mg/dl AND GREATER HIGH RISK Performed By: #### 4 1000, 05077, 13342, 08695, 98764, 52823 ####[facility] VLDL CHOL 17 mg/dL Normal 0-40 The [facility] Comment on above: Performed By: #### 4 1000, 56132, 77729, 09909, 58546, 63994 ####[facility] MAGNESIUM BLOODon 07-23-2017 Magnesium mass conc 2.0 mg/dL Normal 1.9-2.7 The [facility] Comment on above: Performed By: #### 4 1000, 60476, 91258, 13813, 22433, 09133 ####[facility] [facility].[address] PHOSPHORUS BLOODon 8 Phosphate mass conc 4.0 mg/dL Normal 2.5-5.0 The [facility] Comment on above: Performed By: #### 4 1000, 03516, 36628, 33149, 75662, 44393 ####[facility] [facility].[address] TACROLIMUSon 07-23-2017 Tacrolimus mass conc (Bld) 4.6 ng/mL Low 5.0-20.0 The [facility] Comment on above: Result Comment: The [facility] Tacrolimus assay is a delayed one-step immunoassayfor the quantitative determination of tacrolimus in human whole bloodusing the chemiluminescent microparticle immunoassay (CMIA) technologywith flexible assay protocols, referred to as Chemiflex. Performed By: #### 4 1000, 51730, 45704, 13071, 84650, 91982 ####[facility] URIC ACID BLOODon 07-23-2017 Urate mass conc 4.7 mg/dL Normal 2.3-6.6 The [facility] Comment on above: Performed By: #### 4 1000, 53172, 53702, 65111, 90107, 28501 ####[facility] [facility].[address] CBC W/DIFFon 06-20-2017 ABS BASOPHILS 0.0 10*3/uL Normal 0.0-0.2 The [facility] Comment on above: Performed By: #### 4 1000, 14008, 85501, 88608, 98684, 32244 ####[facility] ABS IMM GRANS 0.0 10*3/uL Normal 0.0-0.2 The [facility] Comment on above: Performed By: #### 4 1000, 16376, 70362, 87078, 79825, 83314 ####[facility] [place] [address], [facility] ABS NEUTROPHILS 4.2 10*3/uL Normal 1.6-7.6 The [facility] Comment on above: Performed By: #### 4 1000, 27967, 26698, 83788, 31356, 95434 ####[facility] [place] [address], [facility] Basophils Auto #/vol (Bld) 0.2 % Normal 0.0-1.0 The [facility] Comment on above: Performed By: #### 4 1000, 67541, 85562, 70966, 21786, 93696 ####[facility] [place] [address], [facility] Eosinophils Auto #/vol (Bld) 0.1 10*3/uL Normal 0.0-0.5 The [facility] Comment on above: Performed By: #### 4 1000, 45989, 15658, 81777, 56651, 15138 ####[facility] Eosinophils/100 WBC Auto (Bld) 1.5 % Normal 0.0-6.0 The [facility] Comment on above: Performed By: #### 4 1000, 59477, 00298, 39606, 29907, 63491 ####[facility] Erythrocyte distribution width Auto Ratio (RBC) 13.4 % Normal 11.5-15.0 The [facility] Comment on above: Performed By: #### 4 1000, 62744, 56014, 34084, 11608, 36407 ####[facility] Hematocrit Auto Volume Fraction (Bld) 44.9 % Normal 36.0-45.0 The [facility] Comment on above: Performed By: #### 4 1000, 82976, 11530, 59349, 41882, 15502 ####[facility] [facility] Hemoglobin mass conc (Bld) 14.9 g/dL Normal 12.0-15.0 The [facility] Comment on above: Performed By: #### 4 1000, 84226, 67397, 45521, 58910, 27322 ####[facility] [facility].[address] IMMATURE GRANS 0.2 % Normal 0.0-1.0 The [facility] Comment on above: Performed By: #### 4 1000, 12240, 00821, 66000, 28206, 00665 ####[facility] [facility].[address] Lymphocytes Auto #/vol (Bld) 1.1 10*3/uL Low 1.2-4.0 The [facility] Comment on above: Performed By: #### 4 1000, 83194, 33806, 32260, 72801, 92475 ####[facility] [facility].[address] Lymphocytes/100 WBC Auto (Bld) 17.4 % Low 20.0-45.0 The [facility] Comment on above: Performed By: #### 4 1000, 00946, 28929, 92246, 91958, 06925 ####[facility] [facility].[address] MCH Auto Entitic mass (RBC) 29.2 pg Normal 27.0-33.0 The [facility] Comment on above: Performed By: #### 4 1000, 77930, 61675, 00620, 46907, 31153 ####[facility] MCHC Auto mass conc (RBC) 33.2 g/dL Normal 32.0-35.0 The [facility] Comment on above: Performed By: #### 4 1000, 13710, 08828, 57550, 94477, 02672 ####[facility] MCV Auto Entitic volume (RBC) 87.9 fL Normal 82.0-98.0 The [facility] Comment on above: Performed By: #### 4 1000, 80901, 16950, 04988, 29278, 32871 ####[facility] Monocytes Auto #/vol (Bld) 0.7 10*3/uL Normal 0.1-1.0 The [facility] Comment on above: Performed By: #### 4 1000, 29880, 17172, 76786, 50048, 98105 ####[facility] MONOS 11.3 % Normal 5.0-12.0 The [facility] Comment on above: Performed By: #### 4 1000, 67651, 60027, 76549, 24408, 95616 ####[facility] Neutrophils/100 WBC Auto (Bld) 69.4 % Normal 40.0-72.0 The [facility] Comment on above: Performed By: #### 4 1000, 56661, 15471, 05167, 14612, 66560 ####[facility] Nucleated RBC/100 WBC Ratio (Bld) 0 % Normal 0-0 The [facility] Comment on above: Performed By: #### 4 1000, 78094, 74357, 82061, 13196, 89473 ####[facility] PLAT CNT 198 10*3/uL Normal 150-400 The [facility] Comment on above: Performed By: #### 4 1000, 67056, 03079, 60661, 12314, 27586 ####[facility] [facility] RBC Auto #/vol (Bld) 5.11 10*6/uL High 3.80-5.00 Th [facility] Comment on above: Performed By: #### 4 1000, 74428, 59479, 41883, 55395, 64720 ####[facility] [facility].[address] WBC Auto #/vol (Bld) 6.0 10*3/uL Normal 4.0-10.6 [facility] Comment on above: Performed By: #### 4 1000, 22745, 80714, 39047, 20237, 77536 ####[facility]3000 [facility].[address] COMP METABOLIC PANELon 06-20 Albumin mass conc 4.4 g/dL Normal 3.5-5.7 The [facility] Comment on above: Performed By: #### 4 1000, 60520, 34056, 76232, 12189, 28120 ####[facility] [facility].[address] ALKALINE PHOSPH 133 IU/L High 34-104 The [facility] Comment on above: Performed By: #### 4 1000, 10439, 74146, 72874, 38477, 09705 ####[facility]3000 [facility].[address] ALT enzyme act/vol 16 U/L Normal 7-52 The [facility] Comment on above: Performed By: #### 4 1000, 98660, 24842, 31438, 69938, 22504 ####[facility] [place] [address], [facility] AST enzyme act/vol 21 U/L Normal 13-39 The [facility] Comment on above: Performed By: #### 4 1000, 09027, 41812, 71480, 71181, 41993 ####[facility] [place] [address], [place] Bilirubin mass conc 0.8 mg/dL Normal 0.3-1.0 The [facility] Comment on above: Performed By: #### 4 1000, 24426, 08162, 74329, 25697, 48915 ####[facility] [place] [address], [facility] Calcium mass conc 10.0 mg/dL Normal 8.6-10.3 [facility] Comment on above: Performed By: #### 4 1000, 33262, 40629, 70049, 62469, 70825 ####[facility] [place] [address], [facility] Chloride molar conc 106 mmol/L Normal 98-107 The [facility] Comment on above: Performed By: #### 4 1000, 65493, 48065, 74460, 21276, 09676 ####[facility] [place] [address], [place] CO2 molar conc 27 mmol/L Normal 21-31 The [facility] Comment on above: Performed By: #### 4 1000, 75640, 04776, 63003, 56730, 33644 ####[facility] [place] [address], [place] Creatinine mass conc 0.74 mg/dL Normal 0.60-1.20 The [facility] Comment on above: Performed By: #### 4 1000, 45789, 13063, 10496, 41568, 88188 ####[facility] [place] [address], [facility] GFR/1.73 sq M predicted among blacks MDRD vol rate/area (S/P/Bld) mL/min/{1.73_m2} Normal >60 The [facility] Comment on above: Performed By: #### 4 1000, 03978, 10919, 91788, 39613, 87765 ####[facility] [place] [address], [facility] GFR/1.73 sq M predicted among non-blacks MDRD vol rate/area (S/P/Bld) mL/min/{1.73_m2} Normal >60 The [facility] Comment on above: Performed By: #### 4 1000, 76347, 22944, 24819, 30356, 12380 ####[facility] [place] [address], [facility] Glucose mass conc 95 mg/dL Normal 70-100 The [facility] Comment on above: Performed By: #### 4 1000, 01221, 06214, 76969, 87711, 20093 ####[facility] [place] [address], [facility] Potassium molar conc 3.8 mmol/L Normal 3.5-5.1 The [facility] Comment on above: Performed By: #### 4 1000, 77640, 56249, 61554, 02990, 06975 ####[facility] [place] [address], [facility] Protein mass conc 7.3 g/dL Normal 6.0-8.3 The [facility] Comment on above: Performed By: #### 4 1000, 95466, 05848, 59613, 22565, 42572 ####[facility] [place] [address], [place] Sodium molar conc 137 mmol/L Normal 136-145 The [facility] Comment on above: Performed By: #### 4 1000, 10049, 45936, 20442, 64385, 66778 ####[facility] [facility] Urea nitrogen mass conc 16 mg/dL Normal 7-25 The [facility] Comment on above: Performed By: #### 4 1000, 15142, 47639, 05337, 18031, 88982 ####[facility] [facility] DIRECT BILIon 06-20-2017 Bilirubin.direct mass conc 0.1 mg/dL Normal 0.0-0.2 The [facility] Comment on above: Performed By: #### 4 1000, 58642, 02952, 42481, 52630, 48477 ####[facility]3000 [facility].[address] EVEROLIMUS [id number] 8 EVEROLIMUS 6.7 ng/mL Normal The [facility] Comment on above: Result [...] the transplantcenter.Test developed and characteristics determined by [facility]. See Compliance Statement B: [facility]/CSPerformed by [facility],[address], [place] [address] peu.[facility], Leonid Antonio MD - Lab. Director LIPID PROFILEon 06-20-2017 Cholesterol in HDL mass conc 45 mg/dL Normal 23-92 The [facility] Comment on above: Result Comment: Slig ht variation in normal range could be due to gender and/or age.HDL CHOLESTEROL REFERENCE RANGE:20 years and older Cardiovascular Risk> or =60 mg/dL Fbvoihkob73 TO 59 mg/dL Low Risk<40 mg/dL High Risk Performed By: #### 4 1000, 36930, 79883, 74260, 54121, 19499 ####[facility] [place] [address], [facility] Cholesterol in LDL mass conc 58 mg/dL Normal 0-130 The [facility] Comment on above: Result Comment: LDL IS A CALCULATIONLDL IS ONLY VALID IF THE TRIG IS LESS THAN 400. Performed By: #### 4 1000, 29744, 56637, 84696, 59567, 31070 ####[facility] [place] [address], [place] Cholesterol mass conc 126 mg/dL Normal 120-200 The [facility] Comment on above: Result Comment: CHOL ESTEROL REFERENCE RANGE:20 YEARS AND OLDER CARDIOVASCULAR RISKLess than 200 mg/dl Low Thba379 to 239 mg/dl Borderline Siov044 mg/dl and greater High Risk Performed By: #### 4 1000, 73444, 37528, 61365, 26149, 80027 ####[facility] [place] [address], [place] Cholesterol.total/Cho lesterol in HDL mass ratio 2.8 {ratio} Normal .0-4.5 The [facility] Comment on above: Performed By: #### 4 1000, 35112, 36383, 83489, 46787, 66948 ####[facility] [place] [address], [place] NON-HDL CHOLESTEROL 81 mg/dL Normal The [facility] Comment on above: Performed By: #### 4 1000, 77391, 88715, 36359, 11805, 83983 ####[facility] [facility].[address] Triglyceride mass conc 113 mg/dL Normal 40-149 The [facility] Comment on above: Result Comment: TRIG LYCERIDE REFERENCE RANGE:20 YEARS AND OLDER CARDIOVASCULAR RISKLESS THAN 150 mg/dl LOW KWEW205 TO 199 mg/dl BORDERLINE LTAD932 mg/dl AND GREATER HIGH RISK Performed By: #### 4 1000, 58498, 84194, 04053, 81109, 68694 ####[facility] [facility].[address] VLDL CHOL 23 mg/dL Normal 0-40 The [facility] Comment on above: Performed By: #### 4 1000, 74138, 16503, 96832, 69836, 26819 ####[facility] [facility] MAGNESIUM BLOODon 06-20-2017 Magnesium mass conc 1.9 mg/dL Normal 1.9-2.7 The [facility] Comment on above: Performed By: #### 4 1000, 34625, 89528, 67397, 07374, 76564 ####[facility] [facility].[address] PHOSPHORUS BLOODon 8 Phosphate mass conc 3.1 mg/dL Normal 2.5-5.0 The [facility] Comment on above: Performed By: #### 4 1000, 72410, 51520, 31048, 43677, 17900 ####[facility] [facility].[address] TACROLIMUSon 06-20-2017 Tacrolimus mass conc (Bld) 4.2 ng/mL Low 5.0-20.0 The [facility] Comment on above: Result Comment: The [facility] Tacrolimus assay is a delayed one-step immunoassayfor the quantitative determination of tacrolimus in human whole bloodusing the chemiluminescent microparticle immunoassay (CMIA) technologywith flexible assay protocols, referred to as Chemiflex. Performed By: #### 4 1000, 77161, 72868, 01085, 36541, 80670 ####[facility] [facility].[address] URIC ACID BLOODon 06-20-2017 Urate mass conc 4.3 mg/dL Normal 2.3-6.6 The [facility] Comment on above: Performed By: #### 4 1000, 05122, 63567, 14769, 96563, 47072 ####[facility] [facility].[address] BK VIRUS QUANTITATION PCR BL OODon 05-27-2017 BKV QUANT PCR Not detected Normal The [facility] Comment on above: Result Comment: Meth od: BK virus was measured by quantitative polymerase chain reactionusing a TaqMan probe targeting the polyomavirus BK MEDICAL ILLUSTRATOR-1 gene.The lower limit of quantitation of the assay is 500 copies of BK genomeper milliliter of plasma or urine, and any detectable BK DNA below thatlevel is reported as: Detected, <500 copies/ml. Serial BK virusmeasurement can be used to monitor disease activity. (Reference:Kelsie vaughanl. J CLIN MICRO 2004; 42:8534-0791).This test was developed and its performance characteristics determinedby the [facility]. It has not been approvedby the [place] Food and Drug Administration. However, such approval is notrequired for clinical implementation, and test results have been shownto be clinically useful. This laboratory is CAP accredited and CLIAcertified to perform high complexity testing. Performed By: #### 4 1000, 93957, 96134, 26248, 74982, 84395 ####[facility] LOG 10 COPIES Not detected Normal [facility] [place] Comment on above: Performed By: #### 4 1000, 79224, 48390, 93744, 49851, 74075 ####[facility].[address] CBC W/DIFFon 05-27-2017 ABS BASOPHILS 0.0 10*3/uL Normal 0.0-0.2 The [facility] Comment on above: Performed By: #### 4 1000, 30556, 44202, 81747, 24841, 43336 ####[facility].[address] ABS IMM GRANS 0.0 10*3/uL Normal 0.0-0.2 The [facility] Comment on above: Performed By: #### 4 1000, 56410, 80236, 43917, 61329, 49463 ####[facility].[address] ABS NEUTROPHILS 4.8 10*3/uL Normal 1.6-7.6 The [facility] Comment on above: Performed By: #### 4 1000, 56205, 69710, 62434, 18581, 72784 ####[facility] Basophils Auto #/vol (Bld) 0.0 % Normal 0.0-1.0 The [facility] Comment on above: Performed By: #### 4 1000, 59978, 31246, 90263, 76669, 56787 ####[facility].[address] Eosinophils Auto #/vol (Bld) 0.1 10*3/uL Normal 0.0-0.5 The [facility] Comment on above: Performed By: #### 4 1000, 46660, 07399, 00409, 05744, 84543 ####[facility] Eosinophils/100 WBC Auto (Bld) 1.1 % Normal 0.0-6.0 The [facility] Comment on above: Performed By: #### 4 1000, 09773, 22125, 74894, 27179, 30465 ####[facility].[address] Erythrocyte distribution width Auto Ratio (RBC) 13.5 % Normal 11.5-15.0 [facility] Comment on above: Performed By: #### 4 1000, 53886, 69240, 64817, 47371, 14779 ####[facility] Hematocrit Auto Volume Fraction (Bld) 46.1 % High 36.0-45.0 The [facility] Comment on above: Performed By: #### 4 1000, 05344, 02425, 05170, 15679, 50255 ####[facility].[address] Hemoglobin mass conc (Bld) 15.0 g/dL Normal 12.0-15.0 The [facility] Comment on above: Performed By: #### 4 1000, 41499, 91976, 66730, 91216, 04705 ####[facility].[address] IMMATURE GRANS 0.3 % Normal 0.0-1.0 The [facility] Comment on above: Performed By: #### 4 1000, 39148, 65403, 06846, 01932, 66862 ####[facility] [facility].[address] Lymphocytes Auto #/vol (Bld) 1.0 10*3/uL Low 1.2-4.0 The [facility] Comment on above: Performed By: #### 4 1000, 24474, 58760, 59606, 52422, 06635 ####[facility] Lymphocytes/100 WBC Auto (Bld) 15.7 % Low 20.0-45.0 The [facility] Comment on above: Performed By: #### 4 1000, 53268, 39285, 90033, 89646, 37566 ####[facility] MCH Auto Entitic mass (RBC) 28.8 pg Normal 27.0-33.0 The [facility] Comment on above: Performed By: #### 4 1000, 41573, 87963, 77169, 77977, 18977 ####[facility] MCHC Auto mass conc (RBC) 32.5 g/dL Normal 32.0-35.0 The [facility] Comment on above: Performed By: #### 4 1000, 08317, 12496, 01581, 96851, 04442 ####[facility] MCV Auto Entitic volume (RBC) 88.7 fL Normal 82.0-98.0 The [facility] Comment on above: Performed By: #### 4 1000, 46267, 85560, 91372, 43329, 40503 ####[facility] Monocytes Auto #/vol (Bld) 0.8 10*3/uL Normal 0.1-1.0 The [facility] Comment on above: Performed By: #### 4 1000, 35108, 50854, 50773, 04253, 88537 ####[facility] MONOS 11.4 % Normal 5.0-12.0 The [facility] Comment on above: Performed By: #### 4 1000, 82745, 01325, 13053, 67501, 11481 ####[facility] Neutrophils/100 WBC Auto (Bld) 71.5 % Normal 40.0-72.0 The [facility] Comment on above: Performed By: #### 4 1000, 73544, 16055, 02908, 65437, 92880 ####[facility] Nucleated RBC/100 WBC Ratio (Bld) 0 % Normal 0-0 The [facility] Comment on above: Performed By: #### 4 1000, 77431, 50551, 57979, 83447, 67920 ####[facility] PLAT CNT 199 10*3/uL Normal 150-400 The [facility] Comment on above: Performed By: #### 4 1000, 58999, 67666, 41357, 75164, 38679 ####[facility] RBC Auto #/vol (Bld) 5.20 10*6/uL High 3.80-5.00 Th [facility] Comment on above: Performed By: #### 4 1000, 18054, 52601, 95653, 66007, 50495 ####[facility] WBC Auto #/vol (Bld) 6.6 10*3/uL Normal 4.0-10.6 The [facility] Comment on above: Performed By: #### 4 1000, 45469, 40931, 09700, 72192, 38498 ####[facility] COMP METABOLIC PANELon 05-27 Albumin mass conc 4.6 g/dL Normal 3.5-5.7 The [facility] Comment on above: Performed By: #### 4 1000, 07458, 29169, 50092, 77219, 66609 ####[facility] [place] [address], [facility] ALKALINE PHOSPH 105 IU/L High 34-104 The [facility] Comment on above: Performed By: #### 4 1000, 60888, 18894, 06772, 64328, 77685 ####[facility] [place] [address], [facility] ALT enzyme act/vol 20 U/L Normal 7-52 The [facility] Comment on above: Performed By: #### 4 1000, 68299, 90008, 02476, 87078, 70005 ####[facility] [facility] [place] [address], [facility] AST enzyme act/vol 23 U/L Normal 13-39 The [facility] Comment on above: Performed By: #### 4 1000, 66530, 54932, 26826, 91609, 16518 ####[place] [id number] [place] [address], [facility] Bilirubin mass conc 0.6 mg/dL Normal 0.3-1.0 The [facility] Comment on above: Performed By: #### 4 1000, 60715, 68938, 04314, 21844, 12674 ####[facility] [place] [address], [facility] Calcium mass conc 9.8 mg/dL Normal 8.6-10.3 The [facility] Comment on above: Performed By: #### 4 1000, 33877, 29681, 72178, 60374, 37089 ####[facility] [place] [address], [facility] Chloride molar conc 106 mmol/L Normal 98-107 The [facility] Comment on above: Performed By: #### 4 1000, 89522, 40316, 28541, 98076, 07506 ####[facility] [place] [address], [facility] CO2 molar conc 30 mmol/L Normal 21-31 The [facility] Comment on above: Performed By: #### 4 1000, 10440, 23458, 62830, 23661, 93502 ####[facility] [place] [address], [facility] Creatinine mass conc 0.80 mg/dL Normal 0.60-1.20 [facility] Comment on above: Performed By: #### 4 1000, 76247, 09932, 23008, 00622, 74497 ####[facility] [place] [address], [facility] GFR/1.73 sq M predicted among blacks MDRD vol rate/area (S/P/Bld) mL/min/{1.73_m2} Normal >60 The [facility] Comment on above: Performed By: #### 4 1000, 32780, 47904, 67833, 93861, 92550 ####[facility] [place] [address], [place] GFR/1.73 sq M predicted among non-blacks MDRD vol rate/area (S/P/Bld) mL/min/{1.73_m2} Normal >60 The [facility] Comment on above: Performed By: #### 4 1000, 61714, 63304, 18449, 88912, 35473 ####[facility] [place] [address], [facility] Glucose mass conc 90 mg/dL Normal 70-100 [facility] Comment on above: Performed By: #### 4 1000, 87092, 88646, 65886, 53910, 02633 ####[facility] [place] [address], [place] Potassium molar conc 4.0 mmol/L Normal 3.5-5.1 [facility] Comment on above: Performed By: #### 4 1000, 06625, 47087, 58504, 98724, 55389 ####[facility] Protein mass conc 6.8 g/dL Normal 6.0-8.3 The [facility] Comment on above: Performed By: #### 4 1000, 29626, 68662, 00148, 11821, 65042 ####[facility] Sodium molar conc 138 mmol/L Normal 136-145 The [facility] Comment on above: Performed By: #### 4 1000, 95534, 37844, 21517, 61893, 45369 ####[facility] [facility] Urea nitrogen mass conc 14 mg/dL Normal 7-25 The [facility] Comment on above: Performed By: #### 4 1000, 28008, 66716, 65708, 20258, 30169 ####[facility] DIRECT BILIon 05-27-2017 Bilirubin.direct mass conc 0.1 mg/dL Normal 0.0-0.2 The [facility] Comment on above: Performed By: #### 4 1000, 38830, 74750, 40064, 25665, 11988 ####[facility] EVEROLIMUS [id number] 8 EVEROLIMUS 5.6 ng/mL Normal The [facility] Comment on above: Result [...] the transplantcenter.Test developed and characteristics determined by [employer]. See Compliance Statement B: [facility]/CSPerformed by [facility],[address] [place] [id number] [email or web address], Leonid Antonio MD - Lab. Director HEMOGLOBIN A1Con 05-27-2017 Glucose mass conc 108 mg/dL Normal 70-126 [facility] Comment on above: Performed By: #### 4 1000, 22138, 11268, 24657, 61537, 71804 ####[facility] Hemoglobin A1c/Hemoglobin.total mass fraction (Bld) 5.4 % Normal 4.0-6.0 The [facility] Comment on above: Performed By: #### 4 1000, 70702, 24150, 96060, 64989, 51211 ####[facility] [facility] [place] [place] [address], [facility] LIPID PROFILEon 05-27-2017 Cholesterol in HDL mass conc 39 mg/dL Normal 23-92 The [facility] Comment on above: Result Comment: Slig ht variation in normal range could be due to gender and/or age.HDL CHOLESTEROL REFERENCE RANGE:20 years and older Cardiovascular Risk> or =60 mg/dL Hemeokaac58 TO 59 mg/dL Low Risk<40 mg/dL High Risk Performed By: #### 4 1000, 52487, 84845, 91093, 59317, 51047 ####[facility] [facility] [place] [place] [address], [facility] Cholesterol in LDL mass conc 52 mg/dL Normal 0-130 The [facility] Comment on above: Result Comment: LDL IS A CALCULATIONLDL IS ONLY VALID IF THE TRIG IS LESS THAN 400. Performed By: #### 4 1000, 35197, 54166, 58560, 90877, 42857 ####[facility] [place] [address], [facility] Cholesterol mass conc 117 mg/dL Low 120-200 The [facility] Comment on above: Result Comment: CHOL ESTEROL REFERENCE RANGE:20 YEARS AND OLDER CARDIOVASCULAR RISKLess than 200 mg/dl Low Qsut361 to 239 mg/dl Borderline Tawn964 mg/dl and greater High Risk Performed By: #### 4 1000, 62335, 07913, 27959, 27441, 78626 ####[facility] [facility] [place] [address], [facility] Cholesterol.total/Cho lesterol in HDL mass ratio 3.0 {ratio} Normal .0-4.5 The [facility] Comment on above: Performed By: #### 4 1000, 80589, 82282, 95405, 23527, 80068 ####[facility] [facility] [place] [place] [address], [facility] NON-HDL CHOLESTEROL 78 mg/dL Normal The [facility] Comment on above: Performed By: #### 4 1000, 57180, 57342, 34406, 52850, 03773 ####[facility] [place] [address], [facility] Triglyceride mass conc 131 mg/dL Normal 40-149 The [facility] Comment on above: Result Comment: TRIG LYCERIDE REFERENCE RANGE:20 YEARS AND OLDER CARDIOVASCULAR RISKLESS THAN 150 mg/dl LOW [id number] TO 199 mg/dl BORDERLINE SHSF357 mg/dl AND GREATER HIGH RISK Performed By: #### 4 1000, 87740, 85323, 19831, 22224, 31162 ####[facility] VLDL CHOL 26 mg/dL Normal 0-40 The [facility] Comment on above: Performed By: #### 4 1000, 78899, 19290, 59617, 25939, 90555 ####[facility] MAGNESIUM BLOODon 05-27-2017 Magnesium mass conc 2.1 mg/dL Normal 1.9-2.7 The [facility] Comment on above: Performed By: #### 4 1000, 49119, 09292, 68574, 29966, 13995 ####[facility] [facility] [place] [place] [address], [facility] PHOSPHORUS BLOODon 8 Phosphate mass conc 3.5 mg/dL Normal 2.5-5.0 [facility] Comment on above: Performed By: #### 4 1000, 16706, 37286, 45199, 91216, 43999 ####[facility] [facility].[address] TACROLIMUSon 05-27-2017 Tacrolimus mass conc (Bld) 4.4 ng/mL Low 5.0-20.0 The [facility] Comment on above: Result Comment: The [facility] Tacrolimus assay is a delayed one-step immunoassayfor the quantitative determination of tacrolimus in human whole bloodusing the chemiluminescent microparticle immunoassay (CMIA) technologywith flexible assay protocols, referred to as Chemiflex. Performed By: #### 4 1000, 02476, 45749, 06459, 98617, 52766 ####[facility] [facility] [place] [place] [address], [facility] URIC ACID BLOODon 05-27-2017 Urate mass conc 4.6 mg/dL Normal 2.3-6.6 [facility] Comment on above: Performed By: #### 4 1000, 10771, 23447, 84990, 70706, 60721 ####[facility] [facility].[address] CBC W/DIFFon 04-29-2017 ABS BASOPHILS 0.0 10*3/uL Normal 0.0-0.2 The [facility] Comment on above: Performed By: #### 4 1000, 71181, 28603, 42249, 68457, 47138 ####[facility] [facility].[address] ABS IMM GRANS 0.0 10*3/uL Normal 0.0-0.2 The [facility] Comment on above: Performed By: #### 4 1000, 54323, 47652, 92129, 62246, 58832 ####[facility] [facility].[address] ABS NEUTROPHILS 4.6 10*3/uL Normal 1.6-7.6 The [facility] Comment on above: Performed By: #### 4 1000, 34188, 48688, 71514, 87862, 21678 ####[facility] [facility].[address] Basophils Auto #/vol (Bld) 0.3 % Normal 0.0-1.0 The [facility] Comment on above: Performed By: #### 4 1000, 23003, 74778, 27340, 93645, 16240 ####[facility] [facility].[address] Eosinophils Auto #/vol (Bld) 0.1 10*3/uL Normal 0.0-0.5 The [facility] Comment on above: Performed By: #### 4 1000, 43621, 99178, 41542, 03736, 38285 ####[facility] [facility].[address] Eosinophils/100 WBC Auto (Bld) 1.7 % Normal 0.0-6.0 The [facility] Comment on above: Performed By: #### 4 1000, 83856, 48073, 45337, 90388, 41839 ####[facility] [facility].[address] Erythrocyte distribution width Auto Ratio (RBC) 13.7 % Normal 11.5-15.0 The [facility] Comment on above: Performed By: #### 4 1000, 87216, 77579, 25940, 44470, 77831 ####[facility] [facility].[address] Hematocrit Auto Volume Fraction (Bld) 45.0 % Normal 36.0-45.0 The [facility] Comment on above: Performed By: #### 4 1000, 67698, 47132, 83516, 84908, 98413 ####[facility] [facility].[address] Hemoglobin mass conc (Bld) 14.9 g/dL Normal 12.0-15.0 The [facility] Comment on above: Performed By: #### 4 1000, 30340, 13404, 53059, 17411, 81189 ####[facility] [facility].[address] IMMATURE GRANS 0.3 % Normal 0.0-1.0 The [facility] Comment on above: Performed By: #### 4 1000, 71048, 89235, 46463, 22763, 14097 ####[facility] [facility].[address] Lymphocytes Auto #/vol (Bld) 0.9 10*3/uL Low 1.2-4.0 The [facility] Comment on above: Performed By: #### 4 1000, 35821, 23214, 31734, 04222, 36180 ####[facility] Lymphocytes/100 WBC Auto (Bld) 14.2 % Low 20.0-45.0 The [facility] Comment on above: Performed By: #### 4 1000, 46320, 55062, 90384, 67762, 23682 ####[facility] MCH Auto Entitic mass (RBC) 29.4 pg Normal 27.0-33.0 The [facility] Comment on above: Performed By: #### 4 1000, 67325, 70164, 77108, 01764, 83879 ####[facility] MCHC Auto mass conc (RBC) 33.1 g/dL Normal 32.0-35.0 The [facility] Comment on above: Performed By: #### 4 1000, 00821, 61865, 71303, 29170, 57966 ####[facility] MCV Auto Entitic volume (RBC) 88.8 fL Normal 82.0-98.0 The [facility] Comment on above: Performed By: #### 4 1000, 22142, 01995, 36970, 97739, 91698 ####[facility] Monocytes Auto #/vol (Bld) 0.8 10*3/uL Normal 0.1-1.0 The [facility] Comment on above: Performed By: #### 4 1000, 92603, 84598, 75887, 78558, 12653 ####[facility] MONOS 12.2 % High 5.0-12.0 The [facility] Comment on above: Performed By: #### 4 1000, 07822, 72473, 57052, 46201, 73171 ####[facility] Neutrophils/100 WBC Auto (Bld) 71.3 % Normal 40.0-72.0 The [facility] Comment on above: Performed By: #### 4 1000, 75976, 69115, 59088, 12265, 35303 ####[facility].[address] Nucleated RBC/100 WBC Ratio (Bld) 0 % Normal 0-0 The [facility] Comment on above: Performed By: #### 4 1000, 26043, 07131, 27934, 94405, 19681 ####[facility] PLAT CNT 215 10*3/uL Normal 150-400 The [facility] Comment on above: Performed By: #### 4 1000, 87698, 31845, 28466, 10299, 43141 ####[facility].[address] RBC Auto #/vol (Bld) 5.07 10*6/uL High 3.80-5.00 Th [facility] Comment on above: Performed By: #### 4 1000, 78871, 63364, 70250, 78628, 81646 ####[facility] [facility].[address] WBC Auto #/vol (Bld) 6.5 10*3/uL Normal 4.0-10.6 The [facility] Comment on above: Performed By: #### 4 1000, 95808, 05021, 94083, 55420, 74140 ####[facility] COMP METABOLIC PANELon 04-29 Albumin mass conc 4.4 g/dL Normal 3.5-5.7 The [facility] Comment on above: Performed By: #### 4 1000, 76601, 11272, 80788, 08668, 29997 ####[facility] ALKALINE PHOSPH 114 IU/L High 34-104 The [facility] Comment on above: Performed By: #### 4 1000, 24836, 56190, 35188, 83023, 09042 ####[facility] [place] [address], [facility] ALT enzyme act/vol 15 U/L Normal 7-52 The [facility] Comment on above: Performed By: #### 4 1000, 27139, 36541, 01146, 89191, 52671 ####[facility] [place] [address], [place] AST enzyme act/vol 19 U/L Normal 13-39 The [facility] Comment on above: Performed By: #### 4 1000, 44261, 72647, 65076, 10282, 86162 ####[facility] [place] [address], [facility] Bilirubin mass conc 0.7 mg/dL Normal 0.3-1.0 The [facility] Comment on above: Performed By: #### 4 1000, 42872, 07938, 03279, 72699, 11076 ####[facility] [place] [address], [facility] Calcium mass conc 9.6 mg/dL Normal 8.6-10.3 The [facility] Comment on above: Performed By: #### 4 1000, 69012, 54712, 42044, 14587, 94224 ####[facility] [place] [address], [place] Chloride molar conc 103 mmol/L Normal 98-107 The [facility] Comment on above: Performed By: #### 4 1000, 92816, 36360, 96428, 18384, 20763 ####[facility] [place] [address], [place] CO2 molar conc 29 mmol/L Normal 21-31 The [facility] Comment on above: Performed By: #### 4 1000, 44321, 51587, 89200, 11856, 19114 ####[facility] [place] [address], [facility] Creatinine mass conc 0.79 mg/dL Normal 0.60-1.20 [facility] Comment on above: Performed By: #### 4 1000, 16371, 09097, 62963, 30414, 64560 ####[facility] [place] [address], [facility] GFR/1.73 sq M predicted among blacks MDRD vol rate/area (S/P/Bld) mL/min/{1.73_m2} Normal >60 The [facility] Comment on above: Performed By: #### 4 1000, 15857, 21034, 86192, 73980, 47747 ####[facility] [place] [address], [facility] GFR/1.73 sq M predicted among non-blacks MDRD vol rate/area (S/P/Bld) mL/min/{1.73_m2} Normal >60 The [facility] Comment on above: Performed By: #### 4 1000, 29475, 20493, 94954, 15875, 76407 ####[facility] [place] [address], [facility] Glucose mass conc 90 mg/dL Normal 70-100 [facility] Comment on above: Performed By: #### 4 1000, 44227, 80394, 87301, 19686, 87392 ####[facility] [place] [address], [facility] Potassium molar conc 3.8 mmol/L Normal 3.5-5.1 [facility] Comment on above: Performed By: #### 4 1000, 04817, 58338, 54600, 21580, 42897 ####[facility] Protein mass conc 7.2 g/dL Normal 6.0-8.3 The [facility] Comment on above: Performed By: #### 4 1000, 16640, 12478, 25168, 29770, 19243 ####[facility] Sodium molar conc 140 mmol/L Normal 136-145 The [facility] Comment on above: Performed By: #### 4 1000, 40065, 29060, 81486, 28089, 76648 ####[facility] Urea nitrogen mass conc 15 mg/dL Normal 7-25 The [facility] Comment on above: Performed By: #### 4 1000, 09297, 51908, 21115, 48848, 26912 ####[facility].[address] DIRECT BILIon 04-29-2017 Bilirubin.direct mass conc 0.1 mg/dL Normal 0.0-0.2 [facility] Comment on above: Order Comment: Liver Battery conflicts with Comprehensive Metabolic Panel. Liver Battery canceled and Direct Bilirubin added. Performed By: #### 4 1000, 43920, 53159, 98311, 88195, 72790 ####[place] [id number] [facility].[address] EVEROLIMUS [id number] 8 EVEROLIMUS 5.4 ng/mL Normal [facility] Comment on above: Result [...] the transplantcenter.Test developed and characteristics determined by [facility]. See Compliance Statement B: [facility]/CSPerformed by [facility],[address] [place] [address] [id number] hho.[facility], Leonid Antonio MD - Lab. Director LIPID PROFILEon 04-29-2017 Cholesterol in HDL mass conc 49 mg/dL Normal 23-92 [facility] Comment on above: Result Comment: Slig ht variation in normal range could be due to gender and/or age.HDL CHOLESTEROL REFERENCE RANGE:20 years and older Cardiovascular Risk> or =60 mg/dL Hzrijczli50 TO 59 mg/dL Low Risk<40 mg/dL High Risk Performed By: #### 4 1000, 41688, 13778, 98363, 59008, 39963 ####[facility] [place] [address], [facility] Cholesterol in LDL mass conc 52 mg/dL Normal 0-130 [facility] Comment on above: Result Comment: LDL IS A CALCULATIONLDL IS ONLY VALID IF THE TRIG IS LESS THAN 400. Performed By: #### 4 1000, 67880, 91043, 33598, 28016, 38518 ####[facility] [place] [address], [facility] Cholesterol mass conc 122 mg/dL Normal 120-200 [facility] Comment on above: Result Comment: CHOL ESTEROL REFERENCE RANGE:20 YEARS AND OLDER CARDIOVASCULAR RISKLess than 200 mg/dl Low Sbas064 to 239 mg/dl Borderline Tfdc768 mg/dl and greater High Risk Performed By: #### 4 1000, 11024, 32725, 80462, 61997, 36030 ####[facility] [place] [address], [facility] Cholesterol.total/Cho lesterol in HDL mass ratio 2.5 {ratio} Normal .0-4.5 [facility] Comment on above: Performed By: #### 4 1000, 94369, 34928, 33021, 82445, 55198 ####[facility], [place] [id number] [place] [address] NON-HDL CHOLESTEROL 73 mg/dL Normal [facility] Comment on above: Performed By: #### 4 1000, 10081, 27773, 51161, 61428, 32061 ####[facility] [place] [address], [facility] Triglyceride mass conc 106 mg/dL Normal 40-149 [facility] Comment on above: Result Comment: TRIG LYCERIDE REFERENCE RANGE:20 YEARS AND OLDER CARDIOVASCULAR RISKLESS THAN 150 mg/dl LOW [id number] TO 199 mg/dl BORDERLINE [id number] mg/dl AND GREATER HIGH RISK Performed By: #### 4 1000, 35793, 95685, 39965, 98003, 87910 ####[facility] [place] [address], [facility] VLDL CHOL 21 mg/dL Normal 0-40 [facility] Comment on above: Performed By: #### 4 1000, 26580, 72261, 97715, 72695, 75034 ####[facility] [place] [address], [facility] MAGNESIUM BLOODon 04-29-2017 Magnesium mass conc 2.1 mg/dL Normal 1.9-2.7 [facility] Comment on above: Performed By: #### 4 1000, 79229, 44306, 70274, 90985, 52194 ####[facility] [place] [address], [facility] PHOSPHORUS BLOODon 8 Phosphate mass conc 3.3 mg/dL Normal 2.5-5.0 [facility] Comment on above: Performed By: #### 4 1000, 06838, 46941, 43431, 97247, 93676 ####[facility] [facility].[address] TACROLIMUSon 04-29-2017 Tacrolimus mass conc (Bld) 4.6 ng/mL Low 5.0-20.0 [facility] Comment on above: Result Comment: The [facility] Tacrolimus assay is a delayed one-step immunoassayfor the quantitative determination of tacrolimus in human whole bloodusing the chemiluminescent microparticle immunoassay (CMIA) technologywith flexible assay protocols, referred to as Chemiflex. Performed By: #### 4 1000, 15781, 61758, 26805, 78924, 17730 ####[facility] URIC ACID BLOODon 04-29-2017 Urate mass conc 4.6 mg/dL Normal 2.3-6.6 [facility] Comment on above: Performed By: #### 4 1000, 13044, 96949, 93177, 42377, 23077 ####[place] [id number] [address] CBC W/DIFFon 03-27-2017 Basophils Auto #/vol (Bld) 0.2 % Normal 0.0-2.0 [facility] Comment on above: Performed By: #### 4 1000, 11302, 26916, 51475, 10129, 23887 ####[facility] [facility].[address] Eosinophils/100 WBC Auto (Bld) 1.8 % Normal 0.0-5.0 [facility] Comment on above: Performed By: #### 4 1000, 89064, 75385, 08629, 97704, 32843 ####[facility] Erythrocyte distribution width Auto Ratio (RBC) 13.6 % Normal 11.5-16.9 [facility] Comment on above: Performed By: #### 4 1000, 97583, 48271, 97708, 78017, 03353 ####[facility] [facility].[address] Hematocrit Auto Volume Fraction (Bld) 47.6 % Normal 36.0-48.0 The [facility] Comment on above: Performed By: #### 4 1000, 29341, 88335, 68865, 57443, 38683 ####[place] [id number] [address] Hemoglobin mass conc (Bld) 15.8 g/dL High 12.0-15.0 [facility] Comment on above: Performed By: #### 4 1000, 87240, 66965, 07902, 33311, 91754 ####[facility] Lymphocytes/100 WBC Auto (Bld) 14.5 % Low 20.0-40.0 [facility] Comment on above: Performed By: #### 4 1000, 80382, 67218, 76150, 70962, 00681 ####[place] [id number] [facility].[address] MCH Auto Entitic mass (RBC) 29.0 pg Normal 24.0-32.0 [facility] Comment on above: Performed By: #### 4 1000, 60995, 71383, 06017, 94798, 69720 ####[facility] [facility].[address] MCHC Auto mass conc (RBC) 33.3 g/dL Normal 32.0-36.0 [facility] Comment on above: Performed By: #### 4 1000, 43965, 80069, 11639, 32078, 84581 ####[facility] [place] [address], [facility] MCV Auto Entitic volume (RBC) 87.4 fL Normal 80.0-100.0 [facility] Comment on above: Performed By: #### 4 1000, 52448, 04640, 87518, 56440, 95174 ####[facility] [place] [address], [facility] METHOD Normal RBC Morphology Normal [facility] Comment on above: Performed By: #### 4 1000, 76220, 68929, 32784, 21228, 29094 ####[facility] MONOS 9.6 % High 2-8 [facility] Comment on above: Performed By: #### 4 1000, 00146, 32340, 06819, 32590, 06605 ####[facility] Neutrophils/100 WBC Auto (Bld) 73.9 % High 50-70 [facility] Comment on above: Performed By: #### 4 1000, 46763, 60291, 66291, 18788, 91107 ####[facility] PLAT CNT 228 Thou/mm3 Normal 100-400 The [facility] Comment on above: Performed By: #### 4 1000, 77928, 76710, 03925, 22400, 44165 ####[facility] RBC Auto #/vol (Bld) 5.45 mill/mm3 Normal 3.50-5.50 T [facility] Comment on above: Performed By: #### 4 1000, 39168, 96407, 67922, 79382, 12713 ####[facility] WBC Auto #/vol (Bld) 6.5 Thou/mm3 Normal 4.0-10.0 Th e [facility] Comment on above: Performed By: #### 4 1000, 90437, 32303, 76971, 61944, 77824 ####[facility] COMP METABOLIC PANELon 03-27 Albumin mass conc 4.7 g/dL Normal 3.5-5.7 The [facility] Comment on above: Performed By: #### 4 1000, 54209, 61185, 05492, 89270, 51015 ####[facility] ALKALINE PHOSPH 99 IU/L Normal 34-104 [facility] Comment on above: Performed By: #### 4 1000, 62754, 04685, 95960, 57493, 25623 ####[facility] ALT enzyme act/vol 19 U/L Normal 7-52 [facility] Comment on above: Performed By: #### 4 1000, 16223, 45313, 20439, 83815, 57417 ####[facility] AST enzyme act/vol 21 U/L Normal 13-39 [facility] Comment on above: Performed By: #### 4 1000, 62349, 34707, 51124, 10439, 20437 ####[facility] [place] [address], [facility] Bilirubin mass conc 0.6 mg/dL Normal 0.3-1.0 [facility] Comment on above: Performed By: #### 4 1000, 54952, 46248, 44746, 94933, 36327 ####[facility] [place] [address], [facility] Calcium mass conc 10.2 mg/dL Normal 8.6-10.3 [facility] Comment on above: Performed By: #### 4 1000, 08393, 84714, 36969, 85399, 59789 ####[facility] [place] [address], [place] Chloride molar conc 104 mmol/L Normal 98-107 [facility] Comment on above: Performed By: #### 4 1000, 04288, 60431, 90143, 21262, 23418 ####[facility] [facility] [place] [address], [facility] CO2 molar conc 28 mmol/L Normal 21-31 The [facility] Comment on above: Performed By: #### 4 1000, 07481, 03517, 96708, 68958, 56317 ####[facility] [facility] [place] [address], [facility] Creatinine mass conc 0.78 mg/dL Normal 0.60-1.20 [facility] Comment on above: Performed By: #### 4 1000, 70876, 81370, 90183, 03048, 95319 ####[facility] [facility] [place] [address], [facility] GFR/1.73 sq M predicted among blacks MDRD vol rate/area (S/P/Bld) mL/min/{1.73_m2} Normal >60 [facility] Comment on above: Performed By: #### 4 1000, 00646, 66421, 04400, 33404, 39042 ####[facility] [place] [address], [facility] GFR/1.73 sq M predicted among non-blacks MDRD vol rate/area (S/P/Bld) mL/min/{1.73_m2} Normal >60 [facility] Comment on above: Performed By: #### 4 1000, 90287, 34872, 57890, 22592, 39259 ####[facility] [place] [address], [facility] Glucose mass conc 87 mg/dL Normal 70-100 The [facility] Comment on above: Performed By: #### 4 1000, 90252, 78861, 10019, 07119, 70953 ####[facility] [place] [address], [facility] Potassium molar conc 4.1 mmol/L Normal 3.5-5.1 [facility] Comment on above: Performed By: #### 4 1000, 73615, 25996, 73183, 17870, 34633 ####[facility] [place] [address], [facility] Protein mass conc 7.8 g/dL Normal 6.0-8.3 The [facility] Comment on above: Performed By: #### 4 1000, 48923, 75087, 04849, 31423, 73713 ####[facility] [place] [address], [facility] Sodium molar conc 139 mmol/L Normal 136-145 The [facility] Comment on above: Performed By: #### 4 1000, 06341, 30071, 54344, 46323, 40023 ####[facility] [place] [address], [facility] Urea nitrogen mass conc 19 mg/dL Normal 7-25 [facility] Comment on above: Performed By: #### 4 1000, 81665, 81606, 85205, 85311, 15582 ####[facility] [place] [address], [facility] DIRECT BILIon 03-27-2017 Bilirubin.direct mass conc 0.1 mg/dL Normal 0.0-0.2 [facility] Comment on above: Performed By: #### 4 1000, 89582, 03258, 84109, 18848, 70669 ####[facility] [place] [address].[address] EVEROLIMUS [id number] 7 EVEROLIMUS 5.3 ng/mL Normal [facility] Comment on above: Result [...] the transplantcenter.Test developed and characteristics determined by [facility]. See Compliance Statement B: [place]/CSPerformed by [facility],[address] [place] [id number] tun.[facility], Leonid Antonio MD - Lab. Director LIPID PROFILEon 03-27-2017 Cholesterol in HDL mass conc 50 mg/dL Normal 23-92 [facility] Comment on above: Result Comment: Slig ht variation in normal range could be due to gender and/or age.HDL CHOLESTEROL REFERENCE RANGE:20 years and older Cardiovascular Risk> or =60 mg/dL Crxktqyke83 TO 59 mg/dL Low Risk<40 mg/dL High Risk Performed By: #### 4 1000, 57932, 16634, 67153, 45485, 27825 ####[facility] [place] [address], [facility] Cholesterol in LDL mass conc 66 mg/dL Normal 0-130 [facility] Comment on above: Result Comment: LDL IS A CALCULATIONLDL IS ONLY VALID IF THE TRIG IS LESS THAN 400. Performed By: #### 4 1000, 01668, 50629, 84259, 04589, 36276 ####[facility] [place] [address], [facility] Cholesterol mass conc 147 mg/dL Normal 120-200 [facility] Comment on above: Result Comment: CHOL ESTEROL REFERENCE RANGE:20 YEARS AND OLDER CARDIOVASCULAR RISKLess than 200 mg/dl Low Xfef159 to 239 mg/dl Borderline Ikwn518 mg/dl and greater High Risk Performed By: #### 4 1000, 61908, 20335, 82224, 84702, 85000 ####[facility] [facility] [place] [address], [facility] Cholesterol.total/Cho lesterol in HDL mass ratio 2.9 {ratio} Normal .0-4.5 [facility] Comment on above: Performed By: #### 4 1000, 11243, 81714, 99804, 84140, 58303 ####[facility] [facility] [place] [address], [facility] NON-HDL CHOLESTEROL 97 mg/dL Normal [facility] Comment on above: Performed By: #### 4 1000, 12932, 74604, 65011, 57584, 53728 ####[facility] [place] [address], [facility] Triglyceride mass conc 157 mg/dL High 40-149 [facility] Comment on above: Result Comment: TRIG LYCERIDE REFERENCE RANGE:20 YEARS AND OLDER CARDIOVASCULAR RISKLESS THAN 150 mg/dl LOW [id number] TO 199 mg/dl BORDERLINE ASBI440 mg/dl AND GREATER HIGH RISK Performed By: #### 4 1000, 86168, 06677, 26694, 64623, 76456 ####[facility] VLDL CHOL 31 mg/dL Normal 0-40 [facility] Comment on above: Performed By: #### 4 1000, 11296, 78210, 96643, 70184, 58142 ####[facility] MAGNESIUM BLOODon 03-27-2017 Magnesium mass conc 1.9 mg/dL Normal 1.9-2.7 [facility] Comment on above: Performed By: #### 4 1000, 17180, 75785, 84726, 39932, 55627 ####[facility] [facility].[address] PHOSPHORUS BLOODon 7 Phosphate mass conc 3.4 mg/dL Normal 2.5-5.0 [facility] Comment on above: Performed By: #### 4 1000, 88407, 52705, 94652, 40029, 64618 ####[facility] [facility].[address] TACROLIMUSon 03-27-2017 Tacrolimus mass conc (Bld) 3.7 ng/mL Low 5.0-20.0 [facility] Comment on above: Result Comment: The [facility] Tacrolimus assay is a delayed one-step immunoassayfor the quantitative determination of tacrolimus in human whole bloodusing the chemiluminescent microparticle immunoassay (CMIA) technologywith flexible assay protocols, referred to as Chemiflex. Performed By: #### 4 1000, 04798, 37739, 65745, 07502, 52668 ####[facility] [facility].[address] URIC ACID BLOODon 03-27-2017 Urate mass conc 4.1 mg/dL Normal 2.3-6.6 [facility] Comment on above: Performed By: #### 4 1000, 51918, 72572, 29520, 85548, 38253 ####[facility] [facility].[address] BK VIRUS QUANTITATION PCR BL OODon 02-26-2017 BKV QUANT PCR Not detected Normal The [facility] Comment on above: Result Comment: Meth od: BK virus was measured by quantitative polymerase chain reactionusing a TaqMan probe targeting the polyomavirus BK MEDICAL ILLUSTRATOR-1 gene.The lower limit of quantitation of the assay is 500 copies of BK genomeper milliliter of plasma or urine, and any detectable BK DNA below thatlevel is reported as: Detected, <500 copies/ml. Serial BK virusmeasurement can be used to monitor disease activity. (Reference:Kelsie vaughanl. J CLIN MICRO 2004; 42:9528-1167).This test was developed and its performance characteristics determinedby the [facility]. It has not been approvedby the [place] Food and Drug Administration. However, such approval is notrequired for clinical implementation, and test results have been shownto be clinically useful. This laboratory is CAP accredited and CLIAcertified to perform high complexity testing. Performed By: #### 4 1000, 68023, 88760, 40124, 87640, 86282 ####[facility] [facility].[address] LOG 10 COPIES Not detected Normal The [facility] Comment on above: Performed By: #### 4 1000, 16997, 73166, 92880, 04553, 18024 ####[facility] [facility].[address] CBC W/DIFFon 02-26-2017 Basophils Auto #/vol (Bld) 0.3 % Normal 0.0-2.0 [facility] Comment on above: Performed By: #### 5 0103 ####[facility] [facility].[address] Eosinophils/100 WBC Auto (Bld) 2.2 % Normal 0.0-5.0 [facility] Comment on above: Performed By: #### 5 0103 ####[place] [id number] [address] Erythrocyte distribution width Auto Ratio (RBC) 13.8 % Normal 11.5-16.9 [facility] Comment on above: Performed By: #### 5 0103 ####[facility] [place] [address], [facility] Hematocrit Auto Volume Fraction (Bld) 44.9 % Normal 36.0-48.0 The [facility] Comment on above: Performed By: #### 5 0103 ####[facility] Hemoglobin mass conc (Bld) 15.0 g/dL Normal 12.0-15.0 [facility] Comment on above: Performed By: #### 5 0103 ####[facility] [place] [address], [facility] Lymphocytes/100 WBC Auto (Bld) 18.9 % Low 20.0-40.0 [facility] Comment on above: Performed By: #### 5 0103 ####[facility] MCH Auto Entitic mass (RBC) 28.9 pg Normal 24.0-32.0 [facility] Comment on above: Performed By: #### 5 0103 ####[facility] [place] [address], [facility] MCHC Auto mass conc (RBC) 33.4 g/dL Normal 32.0-36.0 [facility] Comment on above: Performed By: #### 5 0103 ####[facility] [place] [address], [facility] MCV Auto Entitic volume (RBC) 86.6 fL Normal 80.0-100.0 [facility] Comment on above: Performed By: #### 5 3 ####[facility] [place] [address], [facility] METHOD Normal RBC Morphology Normal [facility] Comment on above: Performed By: #### 5 0103 ####[facility] [place] [address], [facility] MONOS 11.7 % High 2-8 [facility] Comment on above: Performed By: #### 5 0103 ####[facility] [place] [address], [facility] Neutrophils/100 WBC Auto (Bld) 66.9 % Normal 50-70 [facility] Comment on above: Performed By: #### 5 0103 ####[facility] [place] [address], [facility] PLAT CNT 230 Thou/mm3 Normal 100-400 The [facility] Comment on above: Performed By: #### 5 3 ####[facility] RBC Auto #/vol (Bld) 5.18 mill/mm3 Normal 3.50-5.50 T he [facility] Comment on above: Performed By: #### 5 0103 ####[facility] [facility] WBC Auto #/vol (Bld) 5.8 Thou/mm3 Normal 4.0-10.0 Th e [facility] Comment on above: Performed By: #### 5 0103 ####[facility] COMP METABOLIC PANELon 02-26 Albumin mass conc 4.7 g/dL Normal 3.5-5.7 [facility] Comment on above: Performed By: #### 4 1000, 86708, 37008, 60670, 62732, 68362 ####[facility] ALKALINE PHOSPH 115 IU/L High 34-104 The [facility] Comment on above: Performed By: #### 4 1000, 90399, 04593, 77660, 62160, 82187 ####[facility] [place] [address], [facility] ALT enzyme act/vol 18 U/L Normal 7-52 The [facility] Comment on above: Performed By: #### 4 1000, 00091, 02200, 52762, 93021, 37460 ####[facility] [place] [address], [place] AST enzyme act/vol 22 U/L Normal 13-39 The [facility] Comment on above: Performed By: #### 4 1000, 13014, 94940, 34080, 36454, 15291 ####[facility] [place] [address], [place] Bilirubin mass conc 0.6 mg/dL Normal 0.3-1.0 [facility] Comment on above: Performed By: #### 4 1000, 03816, 65937, 62105, 09265, 90646 ####[facility] [place] [address], [facility] Calcium mass conc 9.8 mg/dL Normal 8.6-10.3 The [facility] Comment on above: Performed By: #### 4 1000, 53006, 97495, 05726, 65803, 17516 ####[facility] [place] [address], [place] Chloride molar conc 103 mmol/L Normal 98-107 [facility] Comment on above: Performed By: #### 4 1000, 22336, 71598, 52301, 86116, 37065 ####[facility] [place] [address], [place] CO2 molar conc 29 mmol/L Normal 21-31 The [facility] Comment on above: Performed By: #### 4 1000, 16757, 88425, 23980, 37768, 64743 ####[facility] [place] [address], [facility] Creatinine mass conc 0.78 mg/dL Normal 0.60-1.20 [facility] Comment on above: Performed By: #### 4 1000, 38409, 70925, 21301, 79778, 18768 ####[facility] [place] [address], [facility] GFR/1.73 sq M predicted among blacks MDRD vol rate/area (S/P/Bld) mL/min/{1.73_m2} Normal >60 [facility] Comment on above: Performed By: #### 4 1000, 67865, 21061, 02708, 99488, 00614 ####[facility] [place] [address], [facility] GFR/1.73 sq M predicted among non-blacks MDRD vol rate/area (S/P/Bld) mL/min/{1.73_m2} Normal >60 [facility] Comment on above: Performed By: #### 4 1000, 12210, 14225, 79650, 83695, 39529 ####[facility] [place] [address], [place] Glucose mass conc 94 mg/dL Normal 70-100 [facility] Comment on above: Performed By: #### 4 1000, 47592, 07066, 43780, 07316, 38160 ####[facility] [place] [address], [place] Potassium molar conc 3.8 mmol/L Normal 3.5-5.1 [facility] Comment on above: Performed By: #### 4 1000, 43300, 14658, 19753, 85233, 89431 ####[facility] [place] [address], [place] Protein mass conc 7.4 g/dL Normal 6.0-8.3 The [facility] Comment on above: Performed By: #### 4 1000, 89470, 36515, 08644, 87707, 67161 ####[facility] [place] [address], [facility] Sodium molar conc 136 mmol/L Normal 136-145 The [facility] Comment on above: Performed By: #### 4 1000, 99786, 70518, 16201, 74569, 57898 ####[facility] [place] [address], [facility] Urea nitrogen mass conc 19 mg/dL Normal 7-25 The [facility] Comment on above: Performed By: #### 4 1000, 57357, 83964, 01627, 54204, 40765 ####[facility] [place] [address], [facility] DIRECT BILIon 02-26-2017 Bilirubin.direct mass conc 0.1 mg/dL Normal 0.0-0.2 The [facility] Comment on above: Performed By: #### 4 1000, 85174, 84329, 60935, 99675, 97928 ####[facility] EVEROLIMUS 80549ps 7 EVEROLIMUS 5.9 ng/mL Normal The [facility] Comment on above: Result [...] the transplantcenter.Test developed and characteristics determined by [facility]. See Compliance Statement B: [facility]/CSPerformed by [facility],[address] [place] [address] crk.[facility], Leonid Antonio MD - Lab. Director HEMOGLOBIN A1Con 02-26-2017 Glucose mass conc 108 mg/dL Normal 70-126 [facility] Comment on above: Performed By: #### 4 6447, 84489 ####[facility] Hemoglobin A1c/Hemoglobin.total mass fraction (Bld) 5.4 % Normal 4.0-6.0 The [facility] Comment on above: Performed By: #### 4 6447, 85417 ####[facility] [facility].[address] LIPID PROFILEon 02-26-2017 Cholesterol in HDL mass conc 54 mg/dL Normal 23-92 [facility] Comment on above: Result Comment: Slig ht variation in normal range could be due to gender and/or age.HDL CHOLESTEROL REFERENCE RANGE:20 years and older Cardiovascular Risk> or =60 mg/dL [id number] TO 59 mg/dL Low Risk<40 mg/dL High Risk Performed By: #### 4 1000, 38578, 39546, 60313, 14863, 72357 ####[facility] [facility].[address] Cholesterol in LDL mass conc 70 mg/dL Normal 0-130 [facility] Comment on above: Result Comment: LDL IS A CALCULATIONLDL IS ONLY VALID IF THE TRIG IS LESS THAN 400. Performed By: #### 4 1000, 15555, 18630, 56001, 24937, 19667 ####[facility] [place] [address], [facility] Cholesterol mass conc 144 mg/dL Normal 120-200 [facility] Comment on above: Result Comment: CHOL ESTEROL REFERENCE RANGE:20 YEARS AND OLDER CARDIOVASCULAR RISKLess than 200 mg/dl Low Ftze687 to 239 mg/dl Borderline Pwrr805 mg/dl and greater High Risk Performed By: #### 4 1000, 97964, 58542, 51197, 99206, 51408 ####[facility] [place] [address], [facility] Cholesterol.total/Cho lesterol in HDL mass ratio 2.7 {ratio} Normal .0-4.5 [facility] Comment on above: Performed By: #### 4 1000, 66326, 19183, 06222, 19331, 26834 ####[facility] [facility].[address] NON-HDL CHOLESTEROL 90 mg/dL Normal [facility] Comment on above: Performed By: #### 4 1000, 54773, 46760, 62258, 44599, 47337 ####[facility] [facility].[address] Triglyceride mass conc 101 mg/dL Normal 40-149 [facility] Comment on above: Result Comment: TRIG LYCERIDE REFERENCE RANGE:20 YEARS AND OLDER CARDIOVASCULAR RISKLESS THAN 150 mg/dl LOW [id number] TO 199 mg/dl BORDERLINE [id number] mg/dl AND GREATER HIGH RISK Performed By: #### 4 1000, 47663, 45535, 84944, 26056, 54749 ####[facility] [facility] [place] [address], [facility] VLDL CHOL 20 mg/dL Normal 0-40 [facility] Comment on above: Performed By: #### 4 1000, 09962, 85634, 50028, 68525, 96278 ####[facility] MAGNESIUM BLOODon 02-26-2017 Magnesium mass conc 1.9 mg/dL Normal 1.9-2.7 [facility] Comment on above: Performed By: #### 4 1000, 58961, 17173, 85642, 39572, 49966 ####[place] [address], [facility] PHOSPHORUS BLOODon 7 Phosphate mass conc 4.1 mg/dL Normal 2.5-5.0 [facility] Comment on above: Performed By: #### 4 1000, 55199, 71620, 28210, 84929, 23152 ####[address] TACROLIMUSon 02-26-2017 Tacrolimus mass conc (Bld) 4.2 ng/mL Low 5.0-20.0 The [facility] Comment on above: Result Comment: The [facility] Tacrolimus assay is a delayed one-step immunoassayfor the quantitative determination of tacrolimus in human whole bloodusing the chemiluminescent microparticle immunoassay (CMIA) technologywith flexible assay protocols, referred to as Chemiflex. Performed By: #### 4 6447, 56853 ####[address] URIC ACID BLOODon 02-26-2017 Urate mass conc 4.3 mg/dL Normal 2.3-6.6 The [facility] Comment on above: Performed By: #### 4 1000, 82708, 08907, 56656, 73377, 95548 ####[address] Vital Signs Date Time Vital Sign Value Performing Clinician Facility 06-01-2024 13:05-0500 Body height 152.4 cm Ester STEIN Work Phone: [facility] 06-01-2024 13:05-0500 Body mass index (BMI) [Ratio] 24.65 kg/m2 Ester Brennermer PA Work Phone: [facility] 06-01-2024 13:05-0500 Body temperature 98.29 [degF] Ester Hemmer PA Work Phone: [facility] 06-01-2024 13:05-0500 Body weight 57.24 kg Ester Hemmer PA Work Phone: [facility] 06-01-2024 13:05-0500 Diastolic blood pressure 74 mm[Hg] Ester Hemmer PA Work Phone: [facility] 06-01-2024 13:05-0500 Heart rate 69 /min Ester Hemmer PA Work Phone: [facility] 06-01-2024 13:05-0500 Respiratory rate 16 /min Ester Hemmer PA Work Phone: [facility] 06-01-2024 13:05-0500 SaO2% (BldA) [Mass fraction] 95 % Ester Hemmer PA Work Phone: [facility] 06-01-2024 13:05-0500 Systolic blood pressure 112 mm[Hg] Ester Hemmer PA Work Phone: [facility] 08-30-2023 09:22-0400 Body height 182.88 cm [facility] 08-30-2023 09:22-0400 Body mass index (BMI) [Ratio] 17.9 kg/m2 [facility] 08-30-2023 09:22-0400 Body temperature 99.8 [degF] [facility] 08-30-2023 09:22-0400 Body weight 59.87 kg [facility] 08-30-2023 09:22-0400 Diastolic blood pressure 73 mm[Hg] [facility] 08-30-2023 09:22-0400 Heart rate 67 /min [facility] 08-30-2023 09:22-0400 SaO2% (BldA) [Mass fraction] 95 % [facility] 08-30-2023 09:22-0400 Systolic blood pressure 111 mm[Hg] [facility] 03-27-2023 11:30-0500 Body height 152.4 cm Cathy Bella Other [facility] Other 03-27-2023 11:30-0500 Body mass index (BMI) [Ratio] 25.39 kg/m2 Cathy Bella Other [facility] Other 03-27-2023 11:30-0500 Body temperature 97.5 [degF] Cathy Bella Other [facility] Other 03-27-2023 11:30-0500 Body weight 58.97 kg Cathy Bella Other [facility] Other 03-27-2023 11:30-0500 Respiratory rate 18 /min Cathy Bella Other [facility] Other 03-27-2023 11:30-0500 SaO2% (BldA) [Mass fraction] 96 % Cathy Bella Other [facility] Other 09-21-2022 09:00-0400 Body height 152.4 cm Martha Paola Other [facility] Other 09-21-2022 09:00-0400 Body mass index (BMI) [Ratio] 22.46 kg/m2 Martha Paola Other [facility] Other 09-21-2022 09:00-0400 Body temperature 97.6 [degF] Martha Paola Other [facility] Other 09-21-2022 09:00-0400 Body weight 52.16 kg Martha Paola Other [facility] Other 09-21-2022 09:00-0400 Diastolic blood pressure 70 mm[Hg] Martha Guevara Other [facility] Other 09-21-2022 09:00-0400 Respiratory rate 18 /min Martha Guevara Other [facility] Other 09-21-2022 09:00-0400 SaO2% (BldA) [Mass fraction] 96 % Martha Guevara Other [facility] Other 09-21-2022 09:00-0400 Systolic blood pressure 107 mm[Hg] Martha Guevara Other [facility] Other 01-12-2022 13:55-0400 Body height 152.4 cm Cathy Bella Other [facility] Other 01-12-2022 13:55-0400 Body mass index (BMI) [Ratio] 19.53 kg/m2 Cathy Bella Other [facility] Other 01-12-2022 13:55-0400 Body temperature 96.9 [degF] Cathy Bella Other [facility] Other 01-12-2022 13:55-0400 Body weight 45.36 kg Cathy Bella Other [facility] Other 01-12-2022 13:55-0400 Respiratory rate 18 /min Cathy Bella Other [facility] Other 01-12-2022 13:55-0400 SaO2% (BldA) [Mass fraction] 97 % Cathy Bella Other [facility] Other 12-28-2021 10:20-0400 Body height 152.4 cm Martha Smithmond Other [facility] Other 12-28-2021 10:20-0400 Body mass index (BMI) [Ratio] 21.48 kg/m2 Martha Paola Other [facility] Other 12-28-2021 10:20-0400 Body temperature 98 [degF] Martha Smithmond Other [facility] Other 12-28-2021 10:20-0400 Body weight 49.9 kg Martha Smithmond Other [facility] Other 12-28-2021 10:20-0400 Respiratory rate 18 /min Martha Smithmond Other [facility] Other 12-28-2021 10:20-0400 SaO2% (BldA) [Mass fraction] 97 % Martha Guevara Other [facility] Other 12-25-2021 10:05-0400 Body height 152.4 cm Cathy Bella Other [facility] Other 12-25-2021 10:05-0400 Body mass index (BMI) [Ratio] 21.48 kg/m2 Cathy Bella Other [facility] Other 12-25-2021 10:05-0400 Body temperature 96 [degF] Cathy Bella Other [facility] Other 12-25-2021 10:05-0400 Body weight 49.9 kg Cathy Bella Other [facility] Other 12-25-2021 10:05-0400 Respiratory rate 18 /min Cathy Bella Other [facility] Other 12-25-2021 10:05-0400 SaO2% (BldA) [Mass fraction] 97 % Cathy Bella Other [facility] Other 10-27-2021 12:35-0400 Body height 152.4 cm Cathy Bella Other [facility] Other 10-27-2021 12:35-0400 Body mass index (BMI) [Ratio] 22.85 kg/m2 Cathy Bella Other [facility] Other 10-27-2021 12:35-0400 Body weight 53.07 kg Cathy Bella Other [facility] Other 10-27-2021 12:35-0400 Diastolic blood pressure 87 mm[Hg] Cathy Bella Other [facility] Other 10-27-2021 12:35-0400 SaO2% (BldA) [Mass fraction] 98 % Cathy Bella Other [facility] Other 10-27-2021 12:35-0400 Systolic blood pressure 130 mm[Hg] Cathy Bella Other [facility] Other 08-14-2021 10:40-0400 Body height 152.4 cm Martha Guevara Other [facility] Other 08-14-2021 10:40-0400 Body mass index (BMI) [Ratio] 22.46 kg/m2 Martha Guevara Other [facility] Other 08-14-2021 10:40-0400 Body temperature 96.7 [degF] Martha Guevara Other [facility] Other 08-14-2021 10:40-0400 Body weight 52.16 kg Martha Guevara Other [facility] Other 08-14-2021 10:40-0400 Diastolic blood pressure 68 mm[Hg] Martha Guevara Other [facility] Other 08-14-2021 10:40-0400 Respiratory rate 20 /min Martha Guevara Other [facility] Other 08-14-2021 10:40-0400 SaO2% (BldA) [Mass fraction] 98 % Martha Guevara Other [facility] Other 08-14-2021 10:40-0400 Systolic blood pressure 144 mm[Hg] Martha Guevara Other [facility] Other Encounters Encounter Date Encounter Type Care Provider Facility Start: 08-18-2024 End: 08-18-2024 Clinisync Result Encounter Generic External Data Provider [facility] External Department Unsolicited Start: 08-18-2024 End: 08-18-2024 Clinisync Result Encounter Generic External Data Provider [facility] External Department Unsolicited Start: 07-16-2024 End: 07-16-2024 Clinisync Result Encounter Generic External Data Provider [facility] External Department Unsolicited Start: 07-16-2024 End: 07-16-2024 Clinisync Result Encounter Generic External Data Provider [facility] External Department Unsolicited Start: 06-01-2024 End: 06-01-2024 Jay STEIN Work Phone: [facility] Start: 06-01-2024 End: 06-01-2024 Bamboo flowsheet Ester STEIN Work Phone: [facility] Start: 06-01-2024 End: 06-01-2024 Patient encounter procedure Ester STEIN Work Phone: [facility] Comment on above: Medicare annual well ness visit, subsequent (Primary Dx); ACP (advance care planning); Acute non-recurrent pansinusitis; Acute bronchitis, unspecified organism; Primary hypertension (CMS/HCC); PKD (polycystic kidney disease); Joint contracture of foot, unspecified laterality; Immunosuppression (CMS/HCC); Abnormal complete blood count; Current moderate episode of major depressive disorder without prior episode (HCC) ([facility]/HCC); Elevated alkaline phosphatase level; Estrogen deficiency; Generalized anxiety disorder (CMS/HCC); Hypercholesteremia (CMS/HCC); Hypomagnesemia; Renal transplant recipient ([facility]) Start: 06-01-2024 End: 06-01-2024 ambulatory [...] Department Unsolicited Start: 04-01-2024 End: 04-01-2024 ambulatory [facility] Start: 03-19-2024 End: 03-19-2024 Clinisync [...] Start: 09-23-2023 End: 09-23-2023 ambulatory VIRGIL HAYNES [facility] Start: 09-02-2023 End: 09-02-2023 ambulatory ESTER Townsend RANDY Not Available Start: 08-30-2023 End: 08-30-2023 ambulatory [facility] Work Phone: Start: 08-30-2023 End: 08-30-2023 Patient encounter procedure [facility] Work Phone: Start: 03-27-2023 End: 03-27-2023 ambulatory Cathy Bella Other [facility] Other Start: 03-27-2023 Office outpatient vi sit 25 minutes Cathy Bella [facility] Start: 09-21-2022 End: 09-21-2022 ambulatory Martha Guevara Other [facility] Other Start: 09-21-2022 Office outpatient vi sit [...] 01-12-2022 End: 01-12-2022 ambulatory Cathy Bella Other [facility] Other Start: 01-12-2022 Office outpatient vi sit 15 minutes Cathy Bella [facility] Start: 01-07-2022 End: 01-07-2022 ambulatory ISAUT GUAMAN . Facility:[facility] Start: 01-03-2022 End: 01-04-[address] VIRGIL SWIFT Facility:[facility] Start: 12-28-2021 End: 12-28-2021 ambulatory Martha Guevara Other [facility] Other Start: 12-28-2021 Office outpatient vi sit 15 minutes Marthajd Guevara [facility] Start: 12-25-2021 End: 12-25-2021 ambulatory Cathy Bella Other [facility] Other Start: 12-25-2021 Office outpatient vi sit 25 minutes Cathy Bella [facility] Start: 12-05-2021 End: 12-06-[address] DOCTOR CERNA Facility:[facility] Start: 11-07-2021 End: 11-08-[address] DOCTOR SHAWC Facility:[facility] Start: 10-27-2021 End: 10-27-2021 ambulatory Cathy Bella Other [facility] Other Start: 10-27-2021 Office outpatient vi sit 15 minutes Cathy Bella [facility] Start: 10-15-2021 End: 10-16-[address] DOCTOR MISC Facility:[facility] Start: 10-08-2021 End: 10-09-[address] DOCTOR MISC Facility:[facility] Start: 09-10-2021 End: 09-11-[address] DOCTOR MISC Facility:[facility] Start: 08-14-2021 End: 08-14-2021 ambulatory Martha Guevara Other [facility] Other Start: 08-14-2021 Office outpatient vi sit 15 minutes Martha Guevara [facility] Start: 12-31-2017 End: 01-01-2018 Patient encounter VIRGIL HAYNES Facility:[facility] Start: 12-25-2017 End: 12-26-2017 Patient encounter ROSALINDAMAGDALENO ROSENBAUM Facility:[facility] Start: 10-30-2017 End: 10-31-2017 Patient encounter ROSALINDA RATHUDSON Facility:[facility] Start: 10-23-2017 End: 10-24-2017 Patient encounter ROSALINDA ROSENBAUM Facility:[facility] Start: 09-25-2017 End: 09-26-2017 Patient encounter ROSALINDA ROSENBAUM Facility:[facility] Start: 08-26-2017 End: 08-27-2017 Patient encounter ROSALINDA ROSENBAUM Facility:[facility] Start: 07-23-2017 End: 07-24-2017 Patient encounter ROSALINDA ROSENBAUM Facility:[facility] Start: 06-20-2017 End: 06-21-2017 Patient encounter ROSALINDA ROSENBAUM Facility:[facility] Start: 05-27-2017 End: 05-28-2017 Patient encounter ROSALINDA ROSENBAUM Facility:[facility] Start: 04-29-2017 End: 04-30-2017 Patient encounter ROSALINDA ROSENBAUM Facility:[facility] Start: 03-27-2017 End: 03-28-2017 Patient encounter ROSALINDAMinerva ROSENBAUM Facility:[facility] Start: 02-26-2017 End: 02-27-2017 Patient encounter DOE BRIDGES Facility:[facility] Procedures Date Procedure Procedure Detail Performing Clinician Start: 08-18-2024 ALL CBC WITH AUTO DIFF Generic External Data Provider Start: 07-16-2024 ALL CBC WITH AUTO DIFF [...] Start: 02-13-2024 [facility] CMP (CMP) (FOR REMOTE [facility] USE) Generic External Data Provider Start: 02-13-2024 [...] Generic Pr ovider Start: 08-14-2021 Piperacillin/tazobactam Martha Gueavra Other Start: 07-28-2017 Colonoscopy Generic Pr ovider History of renal transplant Renal transplant recipient (CMS/HCC) Ester Padilla PA Work Phone: Plan of Treatment Date Care [...] [facility] [address] [place] [id number] Ester Padilla PA [address] [facility] [address] [place] [address] Arrived [facility] Comment on above: Arrived Start: 04-02-2024 Medicare Annual Well ness (AWV) Medicare Annual Wellness (AWV) [facility] Start: 11-30-2023 Influenza vaccination Influenza Vacc ine (#1) [facility] Start: 07-24-2023 Screening for malign ant neoplasm of breast Mammogram [facility] Start: 11-12-1975 Pneumococcal Vaccine : 65+ Years (1 of 2 - PCV) Pneumococcal Vaccine: 65+ Years (1 of 2 - PCV) [facility] Start: 1962 Pneumococcal Vaccine : 65+ Years (1 of 2 - PCV) Pneumococcal Vaccine: 65+ Years (1 of 2 - PCV) [facility] Start: 1956 Screening for malign ant neoplasm of colon [facility] Immunizations Immunization Date Immunization Notes Care Provider Fa [facility] 02-19-2024 influenza, injectabl e, madin yaron canine kidney, preservative free Ester STEIN Work Phone: [facility] 01-10-2023 Influenza, Seasonal, Quadrivalent, Adjuvanted Generic Provider [facility] 01-10-2023 influenza virus vaccine, unspecified formulation Generic Provider [facility] 09-16-2022 zoster vaccine recombinant Generic Provider [facility] 07-22-2022 zoster vaccine recombinant Generic Provider [facility] 02-19-2022 Influenza, injectabl e, Madin Marshall Canine Kidney, preservative free, quadrivalent Generic Provider [facility] 02-19-2022 SARS-COV-2 (COVID-19 ) vaccine, mRNA, spike protein, LNP, bivalent, PF Generic Provider [facility] 01-09-2021 influenza, seasonal, injectable Generic Provider [facility] 12-12-2019 influenza, injectabl e, quadrivalent, preservative free Generic Provider [facility] 12-26-2018 influenza, injectabl e, quadrivalent, contains preservative Generic Provider [facility] 01-21-2018 influenza, injectabl e, quadrivalent, contains preservative Generic Provider [facility] 12-29-2017 influenza, injectabl e, quadrivalent, preservative free Generic Provider [facility] 12-20-2016 influenza, injectabl e, quadrivalent, preservative free Generic Provider [facility] 12-02-2016 seasonal influenza, intradermal, preservative free Generic Provider [facility] 01-16-2015 influenza, injectabl e, quadrivalent, preservative free Generic Provider [facility] 03-16-2009 influenza virus vaccine, split virus (incl. purified surface antigen) Martha Guevara Other [facility] Other 03-16-2009 influenza virus vaccine, unspecified formulation [facility] Payers Date Payer Category Payer Medicare [facility] [id number] 2021-Present [address] [place] [id number] 2021 Medicare (Managed Care) [facility] [id number] 1959 [facility] [id number] [id number] 1959 Self-pay 1959 Unknown [id number] 1956 Unknown [id number] 2.16.840.1.471395.3.579. 2.647 1956 Unknown [id number] 2.16.840.1.745419.3.579. 2.647 1956 Unknown [id number] 2.16.840.1.701829.3.579. 2.647 1956 Unknown [id number] 2.16.840.1.751055.3.579. 2.647 1956 Unknown [id number] 2.16.840.1.902763.3.579. 2.647 1956 Unknown [id number] 2.16.840.1.413618.3.579. 2.647 1956 Unknown [id number] 2.16.840.1.977791.3.579. 2.647 1956 Unknown [id number] 2.16.840.1.064371.3.579. 2.647 1956 Unknown [id number] 2.16.840.1.256037.3.579. 2.647 1956 Unknown [id number] 2.16.840.1.517915.3.579. 2. 1956 Unknown [id number] 2.16.840.1.062090.3.579. 2.647 1956 Unknown [id number] 2.16.840.1.975913.3.579. 2.647 1956 Unknown [id number] 2.16.840.1.952100.3.579. 2.59 1956 Unknown [id number] 2.16.840.1.563097.3.579. 2. 1956 Unknown [id number] 2.16.840.1.022550.3.579. 2.59 1956 Unknown [id number] 2.16.840.1.370857.3.579. 2.59 1956 Unknown [id number] 2.16.840.1.581018.3.579. 2.59 1956 Unknown [id number] 2.16.840.1.120271.3.579. 2.59 1956 Unknown [id number] 2.16.840.1.486682.3.579. 2.593 1956 Unknown [id number] 2.16.840.1.610019.3.579. 2.593 1956 Unknown [id number] 2.16.840.1.830663.3.579. 2.593 1956 Unknown [id number] 2.16.840.1.665349.3.579. 2.593 1956 Unknown [id number] 2.16.840.1.219786.3.579. 2.593 1956 Unknown [id number] 2.16.840.1.864248.3.579. 2.593 1956 Unknown [id number] 2.16.840.1.811966.3.579. 2.593 1956 Unknown [id number] 2.16.840.1.673386.3.579. 2.593 1956 Unknown [id number] 2.16.840.1.714231.3.579. 2.593 1956 Unknown [id number] 2.16.840.1.847611.3.579. 2.1259 1956 Unknown [id number] 2.16.840.1.616591.3.579. 2.1259 Unknown [id number] 2.16.840.1.100504.3.579. 2.593 Unknown Amy / [id number] Social History Date Type Detail Facility Unknown if ever smoked [facility] Other Start: 09-02-2023 End: 06-01-2024 [facility] [employer] Other Start: 01-29-2023 End: 08-30-2023 Tobacco smoking status PRIS Never smoked tobacco (finding) [facility] Start: 1955 Sex Assigned At Female F [facility] Start: 01-29-2023 Tobacco use and exposure Smokeless tobacco non-user [facility] Start: 09-02-2023 End: 06-01-2024 Alcoholic beverage intake Lifetime non-drinker (finding) [facility] Start: 09-02-2023 End: 06-01-2024 History of Social function [facility] Start: 1955 Sex assigned at Not on file N [facility] Clinical Notes 11-10-2007 to 06-01-2024 SARITA Mcrea - 06/01/2024 1:00 PM EST Note Date [...] Do you have a medical power of state's attorney?: Yes Current Outpatient Medications on File [...] and 3 tablets before bedtime. nystatin (Mycostatin) [id number] UNIT/ML suspension SWISH AND SWALLOW 5 MLS [...] level 01/29/2023 History of stress test Hypertension ([facility]) Joint contracture of foot, unspecified laterality 01/29/2023 Polycystic kidney 2013 Renal transplant recipient ([facility]) 01/29/2023 Past Surgical History: Procedure [...] disease) The patient is seeing a medical interpreter for this condition, treatment is deferred to that specialist. Correspondence from that specialist and any available testing were reviewed during today's visit. 7. Joint contracture of foot, unspecified laterality This is a chronic medical condition that is stable since last assessment. No changes in treatment are suggested at this time. 8. Immunosuppression (CMS/HCC) The patient is seeing a medical interpreter for this condition, treatment is deferred to that specialist. Correspondence from that specialist and any available testing were reviewed during today's visit. 9. Abnormal complete blood count The patient is seeing a medical interpreter for this condition, treatment is deferred to [...] with routine labs. 16. Renal transplant recipient ([facility]) The patient is seeing a medical interpreter for this condition, treatment is deferred to that specialist. Correspondence from that specialist and any available testing were reviewed during today's visit. Follow up in about 1 year (around 06/01/2025) for Medicare Wellness Visit. Ester CARRASCO PA-C documented in this encounter [facility] 04-01-2024 Note Transplant Clinic Patient : Tanika [...] Continue meds and MONTHLY Labs with New [facility] standing Order given today. Follow up 6 months or sooner if needed. See Derm See PCP as scheduled: Dr Carroll. Magic Mouthwash script provided. Chart Review today: 03.17.23 Pt presents visit with . Pt states labs done Last week in [facility] and [place] calling for results. Pt seeing Derm in [place] for lesion: forearm and other lesions. Hx: [...] Hgb. Pt AGAIN instructed to use our [facility] Transplant standing order for her monthly labs. Pt reports B/P stable at home Discussed hydration PLan of Care: Continue meds and MONTHLY Labs with [facility] standing Order. Follow up 6 [...] study. <<<<<<<<<<<<<<<<<<<<<<<<<<<<<<<<<< < (more content not included)... [facility] 12-18-2023 Note Will review by phone today with Dr. Negro Vivas tac level 3.9 for 2 consecutive months and if any dose changes, will notify this pt and amend this note. Most recent IR tacrolimus dosing on record is 0.5mg BID [facility] 12-09-2023 Note Prior auth for Mycop henolate was submitted via [facility] Approved- scanned into media Keycode: [id number] [facility] 11-26-2023 Note Prior auth submitted via [facility] PA Case: [id number], Status: Approved, Coverage Starts on: 08/27/2023 12:00:00 AM, Coverage Ends on: 11/25/2024 12:00:00 AM Keycode: [id number] [facility] 09-23-2023 Note 09/23/23 Chief Complaint Patient presents with Kidney Follow-up Pt has been having sores in her mouth for the past month. PCP: Ramon Carroll MD Txp Referring: Preferred Pharmacy: [facility] [place], [place] - [facility] [address] [facility] [address] [id number] [address] [facility] - [place], [place] - [address] [facility] [address] Subjective Visit Vitals BP 139/74 (BP Location: Left arm, Patient Position: Sitting, BP Cuff Size: Adult) Pulse 59 Temp 36.3 ???C (97.3 ???F) (Oral) Resp 18 Ht 1.524 m (5') Wt 58.5 kg (129 lb) SpO2 99% BMI 25.19 kg/m??? OB Status Postmenopausal Smoking Status Never BSA 1.57 m??? No Known Allergies Medication Documentation Review Audit Reviewed by Ester Frederick MA (Class 1 Owner Operator) on 09/23/23 at 0859 Medication Order Taking? Sig Documenting Provider Last Dose Status amLODIPine (Norvasc) 5 mg tablet [id number] Yes TAKE 1 TABLET BY MOUTH EVERY DAY Virgil Haynes NP Taking Active amoxicillin (Amoxil) 500 mg capsule [id number] No 1 capsule every 8 (eight) hours. Historical Provider, Not Taking Active atorvastatin (Lipitor) 20 mg tablet [id number] Yes TAKE 1 TABLET BY MOUTH EVERY DAY AT BEDTIME Virgil Haynes NP Taking Active baclofen (Lioresal) 10 mg tablet [id number] No Historical Provider, Not Taking Active cyanocobalamin (Vitamin B-12) 500 mcg tablet [id number] Yes in the morning. Historical Provider, Taking Active magnesium oxide (Mag-Ox) 400 mg (241.3 mg magnesium) tablet [id number] Yes Take 400 mg by mouth in the morning. Historical Provider, Taking Active mycophenolate (Myfortic) 180 mg EC tablet [id number] Yes TAKE 4 TABLETS BY MOUTH IN THE MORNING AND AT BEDTIME Patient taking differently: Take 540 mg by mouth in the morning and at bedtime. Doe Bridges MD Taking Active omega-3 fatty acids-fish oil (Fish OiL Extra Strength) 435-880 mg capsule [id number] Yes 1 capsule 1 (one) time each day at the same time. Historical Provider, Taking Active PARoxetine (Paxil) 10 mg tablet [id number] Yes Take 10 mg by mouth in the morning. Historical Provider, Taking Active potassium gluconate 595 mg (99 mg) tablet [id number] Yes every 12 (twelve) hours. Historical Provider, Taking Active spironolactone (Aldactone) 25 mg tablet [id number] Yes TAKE 1 TABLET BY MOUTH EVERY DAY Virgil Haynes NP Taking Active tacrolimus (Prograf) 0.5 mg capsule [id number] Yes TAKE ONE CAPSULE BY MOUTH EVERY [...] Continue meds and MONTHLY Labs with New [facility] standing Order given today. Follow up 6 months or sooner if needed. See Derm See PCP as scheduled: Dr Carroll. Magic Mouthwash script provided. Chart Review today: 03.17.23 Pt presents visit with . Pt states labs done Last week in [facility] and [place] calling for results. Pt seeing Derm in [place] for lesion: forearm and other lesions. Hx: melanoma PCP: local Dr Khoury (more content not included)... [facility] 03-27-2023 Evaluation note Encounter Date Diagnosis Assessment Notes Feb, Contact with and (suspected) exposure to covid-19 (ICD-10 - Z20.822) Feb, Viral URI (ICD-10 - J06.9) Advised patient that COVID/Influenza A/B/RSV test and rapid Strep test was negative today. Advised patient that will treat as viral URI. Supportive care as directed, increase fluids and rest, Tylenol as directed, rx of [place], cool mist humidifier, throat lozenges. Discussed infection [...] condition. Feb, Sore throat (ICD-10 - J02.9) [facility] Other 10-15-2022 Evaluation note* Encounter Date Diagnosis [...] understanding and is agreeable with treatment plan [facility] Other 09-30-2022 Evaluation note* Encounter Date Diagnosis [...] no improvement in 2 to [address] [facility] Other 09-27-2022 Evaluation note* Encounter Date Diagnosis [...] treatment plan. Patient left in stable condition [facility] Other 07-30-2022 Evaluation note* Encounter Date Diagnosis [...] verbalizes understanding and agrees with treatment plan [facility] Other 05-17-2022 Evaluation note* Encounter Date Diagnosis [...] days July, Hematuria, unspecified (ICD-10 - R31.9) [facility] Other 08-12-2008 History general Narrative - Reported* Type Description Date Medical History PKD found in 1982 when she had a son Medical History hypertension Medical History kidney transplant Surgical History resection of superior cervical mass 11/10/07 Surgical History Teeth extraction in preparation for renal transplant Surgical History portacath placement Surgical History kidney transplant 2014 Hospitalization History see above [facility] Other Evaluation noteNort Immediately Other Evaluation note* Diagnosis Onset Date Resolution Status Thrush, oral acute Sore throat noneactive [facility] Work Phone: Evaluation note* Diagnosis Medicare annual wellness visit, subsequent- Primary ACP (advance care planning) Other specified counseling Acute non-recurrent pansinusitis Acute bronchitis, unspecified organism Primary hypertension ([facility]) Unspecified essential hypertension PKD (polycystic kidney disease) Congenital polycystic kidney, unspecified type Joint contracture of foot, unspecified laterality Immunosuppression ([facility]) Abnormal complete blood count Other abnormal blood chemistry Current moderate episode of major depressive disorder without prior episode (HCC) ([facility]) Elevated alkaline phosphatase level Estrogen deficiency Other ovarian failure Generalized anxiety disorder ([facility]) Generalized anxiety disorder Hypercholesteremia ([facility]) Pure hypercholesterolemia Hypomagnesemia Disorders of magnesium metabolism Renal transplant recipient ([facility]) documented [facility] this [facility] - [facility] Immediately Other Summary Purpose Family History Relationship Condition [...] section and content) DATE CREATED AUTHOR 01/30/2018 [facility] DATE CREATED AUTHOR AUTHOR'S ORGANIZ ATION 08/17/2021 [facility] DATE CREATED AUTHOR AUTHOR'S ORGANIZ ATION 08/13/2022 [facility] DATE CREATED AUTHOR AUTHOR'S ORGANIZ ATION 04/02/2024 [facility] DATE CREATED AUTHOR AUTHOR'S ORGANIZ ATION [...] August 30, 2023 End: August 30, 2023 Filter Tip Inspector Relationship Specialty Start Date End Date Ramon Carroll MD [address] [place] [place] [address] PCP - Amy FERREIRA 04/08/21 Ramon Carroll MD [address] [place] [address] [place] [address] PCP - General Internal Medicine 08/06/22 Filter Tip Inspector Relationship Specialty Start Date End Date Ramon Carroll MD [address] [place] [address] [place] [address] PCP - Amy FERREIRA 04/08/21 Ramon Carroll MD [address] [place] [address] [place] [address] PCP - General Internal Medicine 08/06/22 Filter Tip Inspector Relationship Specialty Start Date End Date Ramon Carroll MD [address] [place] [address] [place] [address] PCP - Amy FERREIRA 04/08/21 Ramon Carroll MD [address] [place] [address] [place] [address] PCP - General Internal Medicine 08/06/22 Filter Tip Inspector Relationship Specialty Start Date End Date Ramon Carroll MD [address] [place] [address] [place] [address] PCP - General Internal Medicine 08/06/22 Filter Tip Inspector Relationship Specialty Start Date End Date Ramon Carroll MD [address] [facility] [address] [place] [address] PCP - Amy FERREIRA 04/08/21 Ramon Carroll MD [address] [facility] [address] [place] [address] PCP - General Internal Medicine 08/06/22 Filter Tip Inspector Relationship Specialty Start Date End Date Ramon Carroll MD [address] [facility] [address] [place] [address] PCP Ailyn Reyes MA 04/08/21 Ramon Carroll MD [address] [facility] [address] [place] [address] PCP - General Internal Medicine 08/06/22 Goals [...] BE BASED ON THE PRIMARY CLINICAL RECORDS. [facility] [employer] [facility]. provides no warranty or guarantee of the accuracy or completeness of information in this document.
--- OUTSIDE RECORDS SUMMARY | 2024-09-22 06:53 | XMS_ITS | Clinical Summary ---
Author Organization [facility] Address [address] [place] [address] Care Team Providers Care Hand Quilter Name Role Phone Ramon Carroll MD Primary Care Provider [phone] Virgil Haynes CNP Unavailable [phone] Allergies No known active allergies Medications potassium [...] Discontinued Active Problems No known active problems Encounters Date Type Department Care Team Description 09/17/2024 Refill [facility] [address] [place], [place] [address]s[place] [address] Doe Bridges MD History of kidney transplant from Last 3 Months Family History Relation Name Status Comments Father Mother Social History Tobacco Use Types [...] Info) Description 09/29/2024 9:00 AM EDT Follow-Up [facility] Transplant [address] [facility] [place] [id number] Alfredo Singh, LAUNDRY AGENT [address] [place] [address] Health Maintenance Due Date Last Done Comments CT Colonography 1955 Colonoscopy 1955 FIT-DNA 1955 FOBT 1955 Medicare Annual Wellness (AWV) 1955 Sigmoidoscopy 1955 Diabetes: Retinopathy Screening 1966 Diabetes: Urine Protein Screening 11/12/1975 Pneumococcal Vaccine: 50+ Years (1 of 2 - PCV) 11/12/1975 Adult Tetanus 1978 Diabetes: Hemoglobin A1C 11/12/2022 023, 07/08/2022, 01/19/2022 COVID-19 Vaccine ( season) 2023 02/19/2022, 03/28/2021, 06/07/2020 Colorectal Cancer Screening 02/15/2024 FIT 02/15/2024 02/14/2023 Mammogram 07/23/2024 07/23/2022 Depression Screening 04/01/2025 04/01/2024 Fall Risk Screening 04/01/2025 04/01/2024 Zoster Vaccines Completed 09/16/2022, 07/22/2022 Influenza Vaccine Completed 02/19/2024, , 02/19/2022, Additional history exists HIB Vaccines Aged Out No longer eligi ble based on patient's age to complete this topic HPV Vaccines Aged Out No longer eligi ble based on patient's age to complete this topic IPV Vaccines Aged Out No longer eligi ble based on patient's age to complete this topic Meningococcal B Vaccine Aged Out No l onger eligible based on patient's age to complete this topic Meningococcal Vaccine Aged Out No khai cristi eligible based on patient's age to complete this topic Rotavirus Vaccines Aged Out No longer eligible based on patient's age to complete this topic Procedures Procedure Name Priority Date/Time Associated Diagnosis [...] - 6.0 % 01/22/2022 7:07 AM EDT [facility] Estimated Average Glucose 148.46 mg/dL 01/22/2022 7:07 AM EDT [facility] ([facility] Blood Venous blood specimen / Unknown Venipuncture / Unknown 01/19/2022 9:23 AM EDT 01/19/2022 9:23 AM EDT Doe Bridges MD LAB BLOOD ORDERABLES Final Resul t [facility]) [address] [place] [address] from Last 3 Months or Most Recently Relevant to Health Maintenance Insurance [employer] Care Teams Hand Quilter Relationship Specialty Start Date End Date Ramon Carroll MD [address] [facility] [address] [place] [address] PCP - General 01/19/22 Virgil Haynes, LAUNDRY AGENT [address] [facility] [address] [place] [address] Nurse Practitioner Urology 03/19/22
[2024-09-22 07:10] LABS: Basophils Percent Auto 0.1 % (0.2-2.0); Eosinophils Absolute Auto 0.2 10^3/uL (0.0-0.7); Eosinophils Percent Auto 2.4 % (0.9-7.0); Hematocrit 45.6 % (36.0-48.0); Immature Granulocytes Abs Auto 0.02 10^3/uL (0.00-0.03); Immature Granulocytes Pct Auto 0.3 % (0.0-0.5); Lymphocytes Absolute Auto 1.2 10^3/uL (1.2-3.8); Lymphocytes Percent Auto 15.3 % (20.5-60.0); Mean Corpuscular HGB Conc 32.9 g/dL (29.9-35.2); Mean Corpuscular Hemoglobin 30.9 pg (26.7-34.0); Mean Platelet Volume 11.3 fL (9.5-13.5); Monocytes Absolute Auto 0.8 10^3/uL (0.3-0.8); Neutrophils Absolute Auto 5.4 10^3/uL (1.4-6.5); Neutrophils Percent Auto 71.9 % (43.0-75.0); Platelet Count 226 10^3/uL (150-450); Red Blood Count 4.85 10^6/uL (4.20-5.40); White Blood Count 7.5 10^3/uL (4.0-11.0)
[2024-09-22 07:27] LABS: Alanine Aminotransferase 20 U/L (14-59); Albumin Globulin Ratio 1.1; Albumin Level 3.5 g/dL (3.4-5.0); Alkaline Phosphatase 156 U/L (46-116); Anion Gap 10.3; Aspartate Amino Transferase 16 U/L (15-37); BUN Creatinine Ratio 16.5; Bilirubin Direct 0.1 mg/dL (0.0-0.2); Bilirubin Total 0.7 mg/dL (0.2-1.0); Calcium 9.4 mg/dL (8.5-10.1); Carbon Dioxide 31.9 mmol/L (21.0-32.0); Chloride 106 mmol/L (98-107); Estimated GFR (African America >60 (>=60 mL/min/1.73m^2); Estimated GFR (Non-African Ame >60 (>=60 mL/min/1.73m^2); Globulin 3.3 g/dL; Glucose 95 mg/dL (74-106); Magnesium 1.8 mg/dL (1.8-2.4); Phosphorus 3.6 mg/dL (2.6-4.7); Potassium 4.2 mmol/L (3.5-5.1); Sodium 144 mmol/L (136-145); Total Protein 6.8 g/dL (6.4-8.2); Uric Acid 4.9 mg/dL (2.6-6.0)
[2024-09-24 19:08] LABS: Tacrolimus (FK506), Blood 4.2 ng/mL (5.0-20.0)
== END 2024-09-22 06:49 | disposition home or self-care (01) ==
LOC: LAB 06:50
PROVIDERS: PCP Internal Medicine; Visit Provider Nurse Practitioner Family
DX: R73.01 Impaired fasting glucose (principal); Z94.0 Kidney transplant status
CPT/HCPCS: 36415; 80053; 80197; 82248; 83735; 84100; 84550; 85025

== ENCOUNTER 2024-10-20 06:35 | Outpatient (OUT) | payer MEDICARE, SELFPAY ==
--- OUTSIDE RECORDS SUMMARY | 2024-10-20 06:39 | XMS_ITS ---
Author Organization [facility] Address [address] [place] [address] Care Team Providers Care Director Work Name Role Phone Ramon Carroll MD Primary Care Provider [phone] Virgil Haynes CNP Unavailable [phone] Transplant Episode Kidney Recipient [facility] ([place], [place]) - [facility] Organ Received: Left Kidney Transplanted on 01/21/2013 Marked as Active Follow-up on 01/21/2013 Kidney CoordinatorMeenakshi Turner RN Phone: N/A Fax: N/A Email: N/A Tangirnaq Organ Diagnosis Organ Primary Contributory Kidney Polycystic [...] N/ A Britton Raza MD Surgeon N/A [phone] N/A Events Post-Transplant Pre-Transplant Admitted: 01/20/2013 Referred: 12/21/2009 Transplanted: 01/21/2013 Evaluation began: 1 Discharged: 01/26/2013 Center waitlisted: 1 Appointments (09/20/2024 - 11/20/2024) When With Visit Type Description 09/29/2024 Transplant - Minerva Singh Follow Up Appoint ment Kidney replaced by transplant (Primary Dx); Hypertension, unspecified type; Transplanted kidney; Hyperlipidemia, unspecified hyperlipidemia type; Impaired fasting blood sugar; History of kidney transplant
--- OUTSIDE RECORDS SUMMARY | 2024-10-20 06:39 | XMS_ITS | Encounter Summary ---
Author Organization [facility] Address [address] [facility] [address] Care Team Providers Care An/Sqq 89(V)15 Sonar System Journeyman Name Role Phone Ramon Carroll MD Unavailable [phone] Ramon Carroll MD Primary Care Provider [phone] Encounter Details Date Type Department Care Team (Late st Contact Info) Description 10/30/2023 Orders Only [facility] [address] [address] [place] [address] Daniela Chirinos LPN [address] [place] [address] Estrogen deficiency Social History Tobacco Use Types [...] documented as of this encounter Care Teams An/Sqq 89(V)15 Sonar System Journeyman Relationship Specialty Start Date End Date Ramon Carroll MD [address] [place] [address] [place] [address] PCP - Amy FERREIRA 04/08/21 Ramon Carroll MD [address] [facility] [address] [place] [address] PCP - General Internal Medicine 08/06/22 documented as of this encounter
--- OUTSIDE RECORDS SUMMARY | 2024-10-20 06:39 | XMS_ITS | Encounter Summary ---
Author Organization [facility] Address [address] [facility] [place] [place] [address] Care Team Providers Care Observation Nurse Name Role Phone Ramon Carroll MD Unavailable [phone] Ramon Carroll MD Primary Care Provider [phone] Encounter Details Date Type Department Care Team (Late st Contact Info) Description 09/23/2022 Abstract [facility] [address] [facility] [address] [place] [address] Ramon Carroll MD [address] [facility] [address] [place] [address] Social History Tobacco Use Types Packs/Day Years [...] on filedocumented in this encounter Care Teams Observation Nurse Relationship Specialty Start Date End Date Ramon Carroll MD [address] [facility] [address] [place] [address] PCP - Amy FERREIRA 04/08/21 Ramon Carroll MD [address] [facility] [address] [place] [address] PCP - General Internal Medicine 08/06/22 documented as of this encounter
--- OUTSIDE RECORDS SUMMARY | 2024-10-20 06:39 | XMS_ITS | Clinical Summary ---
Author Organization [employer] Address [id number] [address] [place] [address] Care Team Providers Care Construction Code Administrator Name Role Phone Ramon Carroll MD Primary Care Provider [phone] Allergies No known active allergies Medications magnesium [...] Insurance [employer] Care Teams Construction Code Administrator Relationship Specialty Start Date End Date Ramon Carroll MD [address] [place] [address] [place] [address] PCP - General Internal Medicine 01/25/18
--- OUTSIDE RECORDS SUMMARY | 2024-10-20 06:39 | XMS_ITS | Encounter Summary ---
Author Organization [facility] Address [address] [facility] [place] [address] Care Team Providers Care Cloth Shrinking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 Name Role Phone Ramon Carroll MD Unavailable [phone] Ramon Carroll MD Primary Care Provider [phone] Encounter Details Date Type Department Care Team (Late st Contact Info) Description 04/09/2023 Abstract [facility] [address] [facility] [address] [place] [address] Ramon Carroll MD [address] [facility] [address] [place], [place] [id number] Social History Tobacco Use Types Packs/Day Years [...] documented as of this encounter Care Teams Cloth Shrinking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 Relationship Specialty Start Date End Date Ramon Carroll MD [address] [facility] [address] [place], [place] [id number] PCP - Amy FERREIRA 04/08/21 Ramon Carroll MD [address] [facility] [address] [place] [address] PCP - General Internal Medicine 08/06/22 documented as of this encounter
--- OUTSIDE RECORDS SUMMARY | 2024-10-20 06:40 | XMS_ITS | Encounter Summary ---
Author Organization [facility] Address [address] [place] [address] Care Team Providers Care Chief Compliance Officer Name Role Phone Ramon Carroll MD Unavailable [phone] Ramon Carroll MD Primary Care Provider [phone] Encounter Details Date Type Department Care Team (Late st Contact Info) Description 10/14/2024 Telephone [facility] [address] [facility] [address] [place] [phone] Ester Green PA [address] [facility] [address] [place], [place] [id number] Social History Tobacco Use Types Packs/Day Years [...] on file documented as of this encounter Miscellaneous Notes * Telephone Encounter - SARITA Mcrae - 10/14/2024 1:08 PM EDT Refill request for paroxetine. Sent. documented in this encounter Plan of Treatment Not on file documented as of this encounter Visit Diagnoses Diagnosis Current moderate episode of major depressive disorder without prior episode (HCC) documented in this encounter Additional Health Concerns Assessment Noted Time PHQ-9 Depression Total Score: 0 06/02/19 25 12:00 PM EST documented as of this encounter Care Teams Chief Compliance Officer Relationship Specialty Start Date End Date Ramon Carroll MD [address] [facility] [address] [place] [address] PCP - Amy FERREIRA 04/08/21 Ramon Carroll MD [address] [facility] [address] [place] [address] PCP - General Internal Medicine 08/06/22 documented as of this encounter
--- OUTSIDE RECORDS SUMMARY | 2024-10-20 06:40 | XMS_ITS | Clinical Summary ---
Author Organization [facility] Healthcare Address [address] [place] [address] Care Team Providers Care Pediatric Social Worker Name Role Phone Ramon Carroll MD Unavailable [phone] Ramon Carroll MD Primary Care Provider [phone] Allergies No known active allergies Medications amLODIPine (Norvasc) 5 MG tablet Take 5 mg by mouth in the morning. 3 Active atorvastatin (Lipitor) 20 MG tablet Take 20 mg by mouth in the morning. Active cyanocobalamin (Vitamin B-12) 100 MCG tablet Take 100 mcg by mouth in the morning. Active spironolactone (Aldactone) 25 MG tablet Take 25 mg by mouth in the morning. Active tacrolimus (Prograf) 0.5 MG capsule Take by mouth 2 (two) times a day. 3 Active Potassium 99 MG tablet 1 (one) [...] the morning and 3 tablets before bedtime. 3 Active Ferrous Fumarate 325 (106 Fe) MG tablet Daily 4 Active nystatin (Mycostatin) 181670 UNIT/ML suspensionIndic ations:Thrush, oral SWISH AND SWALLOW 5 MLS ORALLY 4 TIMES A DAY FOR 10 DAYS 60 mL 1 4 Active baclofen (Lioresal) 10 MG tabletIndicatio ns:Trapezius muscle spasm Take 1 tablet (10 mg) by mouth 2 (two) times a day as needed for muscle spasms 60 tablet 5 5 Active PARoxetine (Paxil) 20 MG tabletIndicatio ns:Current moderate episode of major depressive disorder without prior episode (HCC) Take 1 tablet (20 mg) by mouth in the morning. 90 tablet 2 5 Active PARoxetine (Paxil) 20 MG tabletIndicatio ns:Current moderate episode of major depressive disorder without prior episode (HCC) Take 1 tablet (20 mg) by mouth in the morning. 90 tablet 3 3 10/15/19 25 Discontinu ed(Reorder ) Active Problems Problem Noted Date Diagnosed Date [...] Encounters Date Type Department Care Team Description 10/14/2024 Telephone [facility] [address] [facility] [address] [place] [address] Ester Green PA 09/22/2024 Clinisync Result Encounter [facility] External Department Unsolicited Provider, Generic External Data 08/18/2024 Clinisync Result Encounter [facility] External Department [...] ars (1 of 2 - PCV) 11/12/1975 Influenza Vaccine (#1) 2024 4, 01/10/2023, 02/19/2022, Additional history exists Mammogram 02/10/2025 02/11/2024, 04/2 07/2022, 04/02/2021, Additional history exists Medicare Annual Wellness (AWV) 06/01/2025 0 06/01/2024, 04/02/2023, 01/30/2023 FIT-DNA 02/14/2026 02/14/2023 Colonoscopy 07/29/2027 07/28/2017 Colorectal Cancer Screening 07/29/2027 Procedures Procedure Name Priority Date/Time Associated Diagnosis Comments TACROLIMUS (FK506), BLOOD Routine 09/22/2024 7:03 AM EDT METRO BILIRUBIN, DIRECT Routine 09/22/2024 7:03 AM EDT ALL MAGNESIUM Routine 09/22/2024 7:03 AM EDT ALL PHOSPHOROUS Routine 09/22/2024 7:03 AM EDT ALL URIC ACID Routine 09/22/2024 7:03 AM EDT [facility] CMP (CMP) (FOR REMOTE [facility] USE) Routine 09/22/2024 7:03 AM EDT ALL CBC WITH AUTO DIFF Routine 7:03 AM EDT TACROLIMUS (FK506), BLOOD Routine 08/18/2024 6:55 AM EDT BKV QUANT PCR Routine 08/18/2024 6:55 AM EDT MLR HEMOGLOBIN A1C Routine 08/18/2024 6: 55 AM EDT METRO BILIRUBIN, DIRECT Routine 08/18/2024 6:55 AM EDT ALL MAGNESIUM Routine 08/18/2024 6:55 AM EDT ALL PHOSPHOROUS Routine 08/18/2024 6:55 AM EDT ALL URIC ACID Routine 08/18/2024 6:55 AM EDT [facility] CMP (CMP) (FOR REMOTE [facility] USE) Routine 08/18/2024 6:55 AM EDT ALL LIPID PROFILE (FASTING) Routine 08/18/2024 6:55 AM EDT ALL CBC WITH AUTO DIFF Routine 6:55 AM EDT MM TOMOSYNTHESIS SCREENING BI 02/11/2024 9:08 AM EST LAB COLOGUARD COLON CANCER SCREEN Routine 02/14/2023 1:15 PM EST Screening for colorectal cancer from Last 3 Months or Most Recently Relevant to Health Maintenance Results * (ABNORMAL) TACROLIMUS (FK506), BLOOD (09/22/2024 7:03 AM EDT) Only the most recent of2 resultswithin the time period is included. TACROLIMUS (FK506), BLOOD 4.2(A) 5.0 - 20.0 ng/mL [facility] Comment: This test was developed and its performance characteristics determined by [employer]. It has not been cleared or approved [...] ng/mL Performed by LC-MS/MS technology. Performed at: [address] [id number] Lyft Driver: Marizol Singleton MD, Phone: [phone] 09/22/2024 7:03 AM EDT 09/22/2024 7:04 AM EDT Narrative CLINISYNC - 09/24/2024 7:08 PM EDT Generic External Data Provider LAB BLOOD ORDERAB LES Final Result [facility] * METRO BILIRUBIN, DIRECT (09/22/2024 7:03 AM EDT) Only the most recent of2 resultswithin the time period is included. BILIRUBIN DIRECT 0.1 0.0 - 0.2 mg/dL TB 09/22/2024 7:03 AM EDT 09/22/2024 7:04 AM EDT Narrative CLINISYNC - 09/22/2024 7:29 AM EDT Generic External Data Provider CLINISYNC F inal Result Performing Organization Address [facility] Co de Phone Number [facility] * (ABNORMAL) [facility] CMP (CMP) (FOR REMOTE [facility] USE) (09/22/2024 7:03 AM EDT) Only the most recent of2 resultswithin the time period is included. SODIUM 144 136 - 145 mmol/L [facility]H POTASSIUM 4.2 3.5 - 5.1 mmol/L [facility]H CHLORIDE 106 98 - 107 mmol/L TBH CARBON DIOXIDE 31.9 21.0 - 32.0 mmol/L TBH ANION GAP 10.3 TBH GLUCOSE 95 74 - 106 mg/dL TBH BLOOD UREA NITROGEN 15.0 7.0 - 18.0 mg/dL TBH CREATININE 0.91 0.55 - 1.02 mg/dL TBH TBH EGFR-AF GEORGIAN >60 >=60 mL/min/1. 73m 2 TBH TBH EGFR-NON AF GEORGIAN >60 >=60 mL/min/1. 73m 2 TBH BUN CREATININE RATIO 16.5 TBH CALCIUM 9.4 8.5 - 10.1 mg/dL TBH BILIRUBIN TOTAL 0.7 0.2 - 1.0 mg/dL TBH ASPARTATE AMINO TRANSFERASE 16 15 - 37 U/L TBH ALANINE AMINOTRANSFERASE 20 14 - 59 U/L TBH ALKALINE PHOSPHATASE 156(H) 46 - 116 U/L TBH TOTAL PROTEIN 6.8 6.4 - 8.2 g/dL TBH ALBUMIN LEVEL 3.5 3.4 - 5.0 g/dL TBH GLOBULIN 3.3 g/dL TBH ALBUMIN GLOBULIN RATIO 1.1 TBH 09/22/2024 7:03 AM EDT 09/22/2024 7:04 AM EDT Narrative CLINISYNC - 09/22/2024 7:29 AM EDT Generic External Data Provider CLINISYNC F inal Result Performing Organization Address [facility] de Phone Number [facility] * ALL URIC ACID (09/22/2024 7:03 AM EDT) Only the most recent of2 resultswithin the time period is included. URIC ACID 4.9 2.6 - 6.0 mg/dL TB 09/22/2024 7:03 AM EDT 09/22/2024 7:04 AM EDT Narrative CLINISYNC - 09/22/2024 7:29 AM EDT Generic External Data Provider CLINISYNC F inal Result Performing Organization Address [facility] de Phone Number [facility] * ALL PHOSPHOROUS (09/22/2024 7:03 AM EDT) Only the most recent of2 resultswithin the time period is included. PHOSPHORUS 3.6 2.6 - 4.7 mg/dL TB 09/22/2024 7:03 AM EDT 09/22/2024 7:04 AM EDT Narrative CLINISYNC - 09/22/2024 7:29 AM EDT Generic External Data Provider CLINISYNC F inal Result Performing Organization Address [facility] de Phone Number CLINISYOR TB * ALL MAGNESIUM (09/22/2024 7:03 AM EDT) Only the most recent of2 resultswithin the time period is included. MAGNESIUM 1.8 1.8 - 2.4 mg/dL TBH 09/22/2024 7:03 AM EDT 09/22/2024 7:04 AM EDT Narrative CLINISYNC - 09/22/2024 7:29 AM EDT us Generic External Data Provider CLINISYNC F inal Result [facility] * (ABNORMAL) ALL CBC WITH AUTO DIFF (09/22/2024 7:03 AM EDT) Only the most recent of2 resultswithin the time period is included. [facility] TB WBC 7.5 4.0 - 11.0 10 3/uL TBH TBH RBC 4.85 4.20 - 5.40 10 6/uL TBH TBH HGB 15.0 12.0 - 16.0 g/dL TB TB HCT 45.6 36.0 - 48.0 % TBH TB MCV 94.0 81.0 - 99.0 fL TBH TBH MCH 30.9 26.7 - 34.0 pg TBH TB MCHC 32.9 29.9 - 35.2 g/dL TB TB RDW 15.0 11.0 - 15.0 % TBH TBH PLT 226 150 - 450 10 3/uL TBH TBH MPV 11.3 9.5 - 13.5 fL TBH NEUTROPHILS PERCENT AUTO 71.9 43.0 - 75.0 % TBH LYMPHOCYTES PERCENT AUTO 15.3(L) 20.5 - 60.0 % TBH MONOCYTES PERCENT AUTO 10.0 1.7 - 12.0 % TBH TBH EO % 2.4 0.9 - 7.0 % TBH BASOPHILS PERCENT AUTO 0.1(L) 0.2 - 2.0 % TBH IMMATURE GRANULOCYTES PCT AUTO 0.3 0.0 - 0.5 % TBH NEUTROPHILS ABSOLUTE AUTO 5.4 1.4 - 6.5 10 3/uL TBH LYMPHOCYTES ABSOLUTE AUTO 1.2 1.2 - 3.8 10 3/uL TBH MONOCYTES ABSOLUTE AUTO 0.8 0.3 - 0.8 10 3/uL TBH TBH EO # 0.2 0.0 - 0.7 10 3/uL TBH BASOPHILS ABSOLUTE AUTO 0.0 0.0 - 0.1 10 3/uL TBH IMMATURE GRANULOCYTES ABS AUTO 0.02 0.00 - 0.03 10 3/uL TBH 09/22/2024 7:03 AM EDT 09/22/2024 7:04 AM EDT Narrative CLINISYNC - 09/22/2024 7:10 AM EDT Generic External Data Provider CLINISYNC F inal Result Performing Organization Address [facility]/ZIP Co de Phone Number [facility] * BKV QUANT PCR (08/18/2024 6:55 AM EDT) Pathologist [facility] BKV DNA, QUANT PCR, PLASMA Negative Negative IU/mL TB Comment: No BK DNA detected. The linear range of the assay is 22 - 100,000,000 IU/mL. Performed at: [address] [id number] Lyft Driver: Marizol Singleton MD, Phone: [phone] [id number] BKV DNA,PLASMA TNP . TB 08/18/2024 6:55 AM EDT 08/18/2024 6:58 AM EDT Narrative CLINISYNC - 08/20/2024 11:09 AM EDT Generic External Data Provider LAB BLOOD ORDERAB LES Final Result Performing Organization Address [facility] Co de Phone Number [facility] * MLR HEMOGLOBIN A1C (08/18/2024 6:55 AM EDT) [facility] GLYCOHEMOGLOBIN A1C 5.7 4.5 - 6.2 % [facility] Comment: ADA RECOMMENDED LIMIT 4.0 - 6.0 ADA THERAPEUTIC TARGET < 7.0 ACTION SUGGESTED > 7.0 ESTIMATED AVERAGE GLUCOSE 117 mg/dL TB 08/18/2024 6:55 AM EDT 08/18/2024 6:58 AM EDT Narrative CLINISYNC - 08/18/2024 8:31 AM EDT Generic External Data Provider CLINISYNC F inal Result Performing Organization Address [facility] Co de Phone Number CLINISYNC TB * ALL LIPID PROFILE (FASTING) (08/18/2024 6:55 AM EDT) TRIGLYCERIDES 92 <=150 mg/dL TBH CHOLESTEROL 116 <=200 mg/dL TBH HDL CHOLESTEROL 51 40 - 60 mg/dL TB Comment: > or =60 mg/dl - LOW [...] Narrative CLINISYNC - 08/18/2024 7:49 AM EDT Generic External Data Provider MICHELINEISYNC F inal Result Performing Organization Address [facility] de Phone Number CLINISYNC TBH * MM TOMOSYNTHESIS SCREENING BI (02/11/2024 9:08 AM EST) Anatomical Region Laterality Modality Other 02/11/2024 9:08 AM EST Narrative 02/11/2024 9:09 [place] [address] Mammography Report Signed Patient: TANIKA JENKINS MR#: [id number] : 1955 Acct:[id number] Age/Sex: 68 / F ADM Date: 02/11/24 Loc: MAMMO Attending Dr: RAMON CARROLL Ordering Physician: RAMON CARROLL Results: Date of Service: 02/11/24 Follow Up: Procedure(s): MM tomosynthesis screening BI Accession Number(s): [id number] cc: RAMON CARROLL Patient Name: TANIKA JENKINS MR#: [id number] : 1955 Exam Date: 02/11/2024 Ordering Doctor: [...] Treatments None Family Cancers None LOCATION: [facility] BREAST COMPOSITION: The breasts are extremely [...] M.D. Signed By: 02/11/24908 DD/ 7 TD/TT: Prep Cook: Procedure Note Radiology, Radiologist, MD - 02/11/2024 [place] [address] Mammography Report Signed Patient: TANIKA JENKINS LMR#: [id number] : 1955cct:[id number] Age/Sex: 68 / FADM Date: 02/11/24 Loc: MAMMO Attending Dr: RAMON CARROLL Ordering Physician: RAMON CARROLLResults: Date of Service: 02/11/24Follow Up: Procedure(s): MM tomosynthesis screening BI Accession Number(s): [id number] cc: RAMON CARROLL Patient Name: TANIKA JENKINS MR#: [id number] : 1955 Exam Date: 02/11/2024 Ordering Doctor: [...] Treatments None Family Cancers None LOCATION: [facility] BREAST COMPOSITION: The breasts are extremely [...] Bass M.D. Signed By:02/11/24908 DD/ 7 TD/TT: Prep Cook: Ramon Carroll MD [facility] IMAGING Final Result * Cologuard?? colon cancer screening (02/14/2023 1:15 PM EST) NONINV COLON CA DNA+OCC BLD SCRN STL-IMP Negative Negative 02/24/2023 5:35 PM EST [facility] (CLIA #:[id number]) Comment: NEGATIVE TEST RESULT. A negative Cologuard [...] screened with both Cologuard and colonoscopy. (Jhon Guzman, N Engl J Med 2014;370(14):8898-5602) The normal value (reference range) for this assay is negative. COLOGUARD RE-SCREENING RECOMMENDATION: Periodic colorectal cancer screening is an important part of preventive healthcare for asymptomatic individuals at average risk for colorectal cancer. Following a negative Cologuard result, the [place] Cancer Society and U.S. Multi-Society Task Force screening guidelines recommend a Cologuard re-screening interval of 3 years. References: [place] [employer] Society Guideline for Colorectal Cancer Screening: https://www.cancer.org/cancer/ftilh-quuneu-vrjucw/nvmjhqzuj-lelbywtsa-xikvihj/ac s-rec ommendations.html.; Vinnie DK, David ABREU, Robert ReisK, Colorectal Cancer Screening: Recommendations for Physicians and Patients from the U.S. Multi-Society Task Force on Colorectal Cancer Screening , Am J Gastroenterology 2017; 112:3616-7361. TEST DESCRIPTION: Composite algorithmic analysis of stool [...] were screened with both Cologuard and colonoscopy. (Imperiale T. et al, N Engl J Med 2014;370(14):2840-7227.) Cologuard may produce a false negative or false positive result (no colorectal cancer or precancerous polyp present at colonoscopy follow up). A negative Cologuard test result does not guarantee the absence of CRC or advanced adenoma (pre-cancer). The current Cologuard screening interval is every 3 years. ([place] [employer] Society and U.S. Multi-Society Task Force). Cologuard performance data in a 10,000 patient pivotal study using colonoscopy as the reference method can be accessed at the following location: www.[employer]/results. Additional description of the Cologuard test process, warnings and precautions can be found at www.cologuard.com. Stool specimen (specimen) 02/14/2023 1:15 PM EST 02/15/2023 5:51 PM EST Ramon Carroll MD LAB MOLECULAR DIAGNOSTICS [facility] Final Result .[email or web address] (CLIA #:[id number]) [address] [place] [address] [phone] [facility] (CLIA #:[id number]) [address] [place] [id number] from Last 3 Months or Most Recently Relevant to Health Maintenance Insurance [facility] [employer] Care Teams Pediatric Social Worker Relationship Specialty Start Date End Date Ramon Carroll MD [address] [facility] [address] [place] [address] PCP - Amy FERREIRA 04/08/21 Ramon Carroll MD [address] [facility] [address] [place] [address] PCP - General Internal Medicine 08/06/22
--- OUTSIDE RECORDS SUMMARY | 2024-10-20 06:40 | XMS_ITS | Encounter Summary ---
Author Organization [facility] Address [address] [place] [address] Care Team Providers Care Developmental Therapist Name Role Phone Ramon Carroll MD Primary Care Provider [phone] Virgil Haynes CNP Unavailable [phone] Reason for Visit * Reason Comments Med Refill Encounter Details Date Type Department Care Team (Late st Contact Info) Description 01/20/2023 Refill [facility] Urology [address] [facility] [address] [place] [address] Anthony Kunz MD [address] [place] [address] History of kidney transplant Social [...] Care Team (Late st Contact Info) Description 04/06/2025 9:30 AM EST Follow-Up [facility] Transplant [address] [place] [phone] Alfredo Singh CNP [address] [place], [place] [id number] documented as of this encounter Visit Diagnoses Diagnosis History of kidney transplant Kidney replaced by transplant documented in this encounter Care Teams Developmental Therapist Relationship Specialty Start Date End Date Ramon Carroll MD [address] [facility] [address] [place] [address] PCP - General 01/19/22 Virgil Haynes, CAROLA [address] [facility] [address] [place] [address] Nurse Practitioner Urology 03/19/22 documented as of this encounter
--- OUTSIDE RECORDS SUMMARY | 2024-10-20 06:40 | XMS_ITS | Encounter Summary ---
Author Organization [facility] Address [address] [place] [address] Care Team Providers Care House Designer Name Role Phone Ramon Carroll MD Unavailable [phone] Ramon Carroll MD Primary Care Provider [phone] Encounter Details Date Type Department Care Team (Late st Contact Info) Description 02/11/2024 Clinisync Result Encounter [facility] External Department Unsolicited Ramon Carroll MD [address] [facility] [address] [place] [address] Social History Tobacco Use Types Packs/Day Years [...] EST Narrative 02/11/2024 9:09 AM EST [place] [id number] Mammography Report Signed Patient: TANIKA JENKINS MR#: [id number] : 1955 Acct:[id number] Age/Sex: 68 / F ADM Date: 02/11/24 Loc: MAMMO Attending Dr: RAMON CARROLL Ordering Physician: RAMON CARROLL Results: Date of Service: 02/11/24 Follow Up: Procedure(s): MM tomosynthesis screening BI Accession Number(s): [id number] cc: RAMON CARROLL Patient Name: TANIKA JENKINS MR#: [id number] : 1955 Exam Date: 02/11/2024 Ordering Doctor: [...] Treatments None Family Cancers None LOCATION: [facility] BREAST COMPOSITION: The breasts are extremely [...] M.D. Signed By: 02/11/24908 DD/ 7 TD/TT: Allergist/Immunologist Physician: Procedure Note Radiology, Radiologist, - 02/11/2024 [address] [place] [id number] Mammography Report Signed Patient: TANIKA JENKINS LMR#: [id number] : 1955cct:[id number] Age/Sex: 68 / FADM Date: 02/11/24 Loc: MAMMO Attending Dr: RAMON CARROLL Ordering Physician: RAMON CARROLLResults: Date of Service: 02/11/24Follow Up: Procedure(s): MM tomosynthesis screening BI Accession Number(s): [id number] cc: UZMAOLIVERAMON Patient Name: TANIKA JENKINS MR#: [id number] : 1955 Exam Date: 02/11/2024 Ordering Doctor: [...] Treatments None Family Cancers None LOCATION: [facility] BREAST COMPOSITION: The breasts are extremely [...] Bass M.D. Signed By:02/11/24908 DD/ 7 TD/TT: Allergist/Immunologist Physician: Ramon Carroll MD [facility] IMAGING Final Result documented in this encounter Visit Diagnoses Not on filedocumented in this encounter Additional Health Concerns Assessment Noted Time PHQ-9 Depression Total Score: 1 01/31/20 23 8:00 AM EDT documented as of this encounter Care Teams House Designer Relationship Specialty Start Date End Date Ramon Carroll MD [address] [facility] [address] [place] [address] PCP - Amy FERREIRA 04/08/21 Ramon Carroll MD [address] [facility] [address] [place] [address] PCP - General Internal Medicine 08/06/22 documented as of this encounter
--- OUTSIDE RECORDS SUMMARY | 2024-10-20 06:40 | XMS_ITS | Encounter Summary ---
Author Organization [facility] Address [address] [place] [address] Care Team Providers Care Sales Vice President Name Role Phone Ramon Carroll MD Unavailable [phone] Ramon Carroll MD Primary Care Provider [phone] Encounter Details Date Type Department Care Team (Late st Contact Info) Description 06/01/2024 Abstract [facility] [address] [facility] [address] [place] [phone] Ramon Carroll MD [address] [facility] [address] [place] [address] Social History Tobacco Use Types Packs/Day Years [...] documented as of this encounter Care Teams Sales Vice President Relationship Specialty Start Date End Date Ramon Carroll MD [address] [facility] [address] [place] [address] PCP - Amy FERREIRA 04/08/21 Ramon Carroll MD [address] [facility] [address] [place] [address] PCP - General Internal Medicine 08/06/22 documented as of this encounter
--- OUTSIDE RECORDS SUMMARY | 2024-10-20 06:40 | XMS_ITS | Clinical Summary ---
Author Organization [facility] Address [address] [place] [address] Care Team Providers Care Dry Dip Worker Name Role Phone Ramon Carroll MD Primary Care Provider [phone] Virgil Haynes CNP Unavailable [phone] Allergies No known active allergies Medications potassium gluconate 595 mg (99 mg) tablet every 12 (twelve) hours. 4 Active magnesium oxide (Mag-Ox) 400 mg (241.3 mg magnesium) tablet Take 400 mg by mouth in the morning. Active cyanocobalamin (Vitamin B-12) 500 mcg tablet in the morning. 1 Active amoxicillin (Amoxil) 500 mg capsule 1 capsule every 8 (eight) hours. 2 Active omega-3 fatty acids-fish oil (Fish OiL Extra Strength) 435-880 mg capsule 1 capsule 1 (one) time each day at the same time. Active PARoxetine (Paxil) 10 mg tablet Take 10 mg by mouth in the morning. Active baclofen (Lioresal) 10 mg tablet 3 Active tacrolimus (Prograf) 0.5 mg capsuleIndications :History of kidney transplant TAKE 1 CAPSULE BY MOUTH EVERY MORNING AND 1 EVERY NIGHT AT BEDTIME 60 capsule 11 4 Active amLODIPine (Norvasc) 5 mg tabletIndications: Hypertension, unspecified type Take 1 tablet (5 mg) by mouth in the morning. 90 tablet 3 5 Active spironolactone (Aldactone) 25 mg tabletIndications: Transplanted kidney Take 1 tablet (25 mg) by mouth in the morning. 90 tablet 3 5 09/30/19 26 Active atorvastatin (Lipitor) 20 mg tabletIndications: Hyperlipidemia, unspecified hyperlipidemia type Take 1 tablet (20 mg) by mouth at bedtime. 90 tablet 3 5 09/30/19 26 Active mycophenolate (Myfortic) 180 mg EC tabletIndications: Transplanted kidney Take 3 tablets (540 mg) by mouth two times daily. 240 tablet 4 5 Active atorvastatin (Lipitor) 20 mg tabletIndications: Hyperlipidemia, unspecified hyperlipidemia type Take 1 tablet (20 mg) by mouth at bedtime. 90 tablet 3 5 09/30/19 25 Discontin ued(Reord er) spironolactone (Aldactone) 25 mg tabletIndications: Transplanted kidney Take 1 tablet (25 mg) by mouth in the morning. 90 tablet 3 5 09/30/19 25 Discontin ued(Reord er) amLODIPine (Norvasc) 5 mg tabletIndications: Hypertension, unspecified type Take 1 tablet (5 mg) by mouth in the morning. 90 tablet 3 5 09/30/19 25 Discontin ued(Reord er) mycophenolate (Myfortic) 180 mg EC tabletIndications: History of kidney transplant TAKE 4 TABLETS BY MOUTH IN THE MORNING AND AT BEDTIME 240 tablet 4 5 09/30/19 25 Discontin ued(Reord er) Active Problems No known active problems Encounters Date Type Department Care Team Description 09/29/2024 9:00 AM EDT Follow-Up [facility] [address] [place] [id number] Alfredo Singh CNP Kidney replaced by transplant (Primary Dx); Hypertension, unspecified type; Transplanted kidney; Hyperlipidemia, unspecified hyperlipidemia type; Impaired fasting blood sugar; History of kidney transplant 09/17/2024 Refill [facility] [address] [place] [id number] Doe Bridges MD History of kidney transplant [...] Date Recorded Patient Health Questionnaire-2 Score 0 09/29/2024 [place] Safety & Environment Answer Date Rec orded [...] Sign Reading Time Taken Comments Blood Pressure 120/77 09/29/2024 8:34 AM EDT Pulse 62 09/29/2024 8:34 AM EDT Temperature 36.4 C (97.5 F) 04/01/2024 8:54 AM EST Respiratory Rate 15 09/29/2024 8:34 AM EDT Oxygen Saturation 97% 09/29/2024 8:34 AM EDT Inhaled Oxygen Concentration - - Weight 57.2 kg (126 lb) 09/29/2024 8:34 AM EDT Height 152.4 cm (5') 09/29/2024 8:34 AM EDT Body Mass Index 24.61 09/29/2024 8:34 AM EDT Plan of Treatment Upcoming Encounters Date Type Department Care Team (Late st Contact Info) Description 04/06/2025 9:30 AM EST Follow-Up [facility] [address] [place] [phone] Alfredo Singh, CLINIC PHYSICIAN DIRECTOR [address] [place] [address] Health Maintenance Due Date Last Done Comments CT Colonography 1956 Colonoscopy 1956 FIT-DNA 1956 FOBT 1955 Medicare Annual Wellness (AWV) 1955 Sigmoidoscopy 1955 Pneumococcal Vaccine: 50+ Years (1 of 2 - PCV) 11/12/1975 Adult Tetanus 1978 COVID-19 Vaccine ( season) 2023 02/19/2022, 03/28/2021, 06/07/2020 Colorectal Cancer Screening 02/15/2024 FIT 02/15/2024 02/14/2023 Mammogram 07/23/2024 07/23/2022 Influenza Vaccine (#1) 2024 , 01/10/2023, 02/19/2022, Additional history exists Depression Screening 09/29/2025 09/29/2024 Fall Risk Screening 09/29/2025 09/29/2024 Zoster Vaccines Completed 09/16/2022, 07/22/2022 HIB Vaccines Aged Out No longer eligi [...] Procedure Name Priority Date/Time Associated Diagnosis Comments POCT URINE DIP AUTO W/O MICRO Routine 09/29/2024 9:03 AM EDT Kidney replaced by transplant from Last 3 Months Results * POCT rack urine (09/29/2024 9:03 AM EDT) Bilirubin Urine 0 mg/dL Blood, UA 1+ Glucose, UA Negative Leukocytes, UA Negative Nitrite, UA Negative pH, UA 6.0 5.0 - 8.0 Protein, UA Negative Spec Grav, UA 1.020 Urobilinogen, UA 0.2 Ketones, UA Automated Negative Color, UA Yellow Clarity, UA Clear Lot Number [id number] Expiration Date 10/27/24 09/29/2024 9:03 AM EDT Alfredo Singh CNP POINT OF CARE TEST ENTER/EDIT ORDERABLES Final Result from Last 3 Months Insurance [employer] Care Teams Dry Dip Worker Relationship Specialty Start Date End Date Ramon Carroll MD [address] [facility] [address] [place] [address] PCP - General 01/19/22 Virgil Haynes, CAROL[place] [address] [facility] [address] [place] [address] Nurse Practitioner Urology 03/19/22
--- OUTSIDE RECORDS SUMMARY | 2024-10-20 06:40 | XMS_ITS | Encounter Summary ---
Author Organization [facility] Address [address] [facility] [place] [address] Care Team Providers Care Sales Account Specialist Name Role Phone Ramon Carroll MD Unavailable [phone] Ramon Carroll MD Primary Care Provider [phone] Encounter Details Date Type Department Care Team (Late st Contact Info) Description 03/28/2023 Abstract [facility] [address] [facility] [address] [place] [phone] Ramon Carroll MD [address] [facility] [address] [place], [place] [id number] Social History Tobacco Use Types Packs/Day Years [...] as of this encounter Care Teams Sales Account Specialist Relationship Specialty Start Date End Date Ramon Carroll MD [address] [facility] [address] [place], [place] [id number] PCP - Amy FERREIRA 04/08/21 Ramon Carroll MD [address] [facility] [address] [place] [address] PCP - General Internal Medicine 08/06/22 documented as of this encounter
--- OUTSIDE RECORDS SUMMARY | 2024-10-20 06:40 | XMS_ITS | Encounter Summary ---
Author Organization [facility] Address [address] [facility] [place] [address] Care Team Providers Care Telephoto Engineer Name Role Phone Ramon Carroll MD Unavailable [phone] Ramon Carroll MD Primary Care Provider [phone] Encounter Details Date Type Department Care Team (Late st Contact Info) Description 02/03/2023 Abstract [facility] [address] [facility] [address] [place] [phone] Ramon Carroll MD [address] [facility] [address] [place], [place] [id number] Social History Tobacco Use Types Packs/Day Years [...] documented as of this encounter Care Teams Telephoto Engineer Relationship Specialty Start Date End Date Ramon Carroll MD [address] [facility] [address] [place], [place] [id number] PCP - Amy FERREIRA 04/08/21 Ramon Carroll MD [address] [facility] [address] [place] [address] PCP - General Internal Medicine 08/06/22 documented as of this encounter
--- OUTSIDE RECORDS SUMMARY | 2024-10-20 06:41 | XMS_ITS | CCD ---
Author Organization [facility] Care Team Providers Care Batting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 Name Role Phone CHIPPEWA-CREE, DINKAR Unavailable Unavailable CHIPPEWA-CREE, DINKAR Unavailable Unavailable CARROLL, RAMON Unavailable Unavailable [...] ROSALINDA Unavailable Unavailable CARROLL, RAMON Unavailable Unavailable ZEYNEPENSCOUT MCGOWAN Unavailable Unavailable SCOUT MCKEON Unavailable Unavailable ZEYNEPENBERSona SCOUT Unavailable Unavailable CARROLL, RAMON Unavailable Unavailable Martha Guevara Unavailable Cathy Bella Unavailable DR SCOUT SWIFT Consulting Unavailable NADERER, DR SCOUT Palma Attending Unavailable CARROLL, DR DARBY Primary Care Unavailable NADERER, DR SCOUT Palma Admitting Unavailable MARY, VITO Consulting Unavailable WARD, JOSE F Townsend Consulting Unavailable ROWENA ., ISATU Consulting Unavailable MIESHA, MAYRA Consulting Unavailable ROWENA ., ISATU Attending Unavailable ROWENA ., ISATU Admitting Unavailable CARROLL, DR DARBY Primary Care Unavailable ZIEBER, DR ARTEMIO Garcia Consulting Unavailable IAT ., HYACINTH Consulting Unavailable ROWENA ., ISATU Consulting Unavailable CARROLL, DR DARBY Admitting Unavailable CARROLL, DR DARBY Primary Care Unavailable CARROLL, DR DARBY Consulting Unavailable CARROLL, DR DARBY Attending Unavailable ZIEBER, DR ARTEMIO Garcia Consulting Unavailable CARROLL, DR DARBY Primary Care Unavailable MISC, DR OBRIEN Consulting Unavailable MISC, DR OBRIEN Attending Unavailable MISC, DR OBRIEN Admitting Unavailable CHIPPEWA-CREE, DR CONNORS Consulting Unavailable CARROLL, DR DARBY Primary Care Unavailable MISC, DR OBRIEN Attending Unavailable MISC, DR OBRIEN Admitting Unavailable MISC, DR OBRIEN Attending Unavailable MISC, DR OBRIEN Admitting Unavailable MISC, DR OBRIEN Consulting Unavailable CARROLL, DR DARBY Primary Care Unavailable CHIPPEWA-CREE, DR CONNORS Consulting Unavailable CHIPPEWA-CREE, DR CONNORS Attending Unavailable CARROLL, DR DARBY Primary Care Unavailable CHIPPEWA-CREE, DR CONNORS Admitting Unavailable CHIPPEWA-CREE, DR CONNORS Attending Unavailable CARROLL, DR DARBY Primary Care Unavailable CHIPPEWA-CREE, DR CONNORS Admitting Unavailable CHIPPEWA-CREE, DR CONNORS Consulting Unavailable MISC, DR OBRIEN [...] Unavailable CARROLL, DR DARBY Primary Care Unavailable CHIPPEWA-CREE, DR CONNORS Consulting Unavailable CHIPPEWA-CREE, DR CONNORS Attending Unavailable CARROLL, DR DARBY Primary Care Unavailable CHIPPEWA-CREE, DR CONNORS Admitting Unavailable MISC, DOCTOR Attending Unavailable MISC, DR OBRIEN Admitting Unavailable MISC, DR OBRIEN Consulting Unavailable CARROLL, DR DARBY Primary Care Unavailable MISC, DOCTOR Attending Unavailable MISC, DR OBRIEN Admitting Unavailable MISC, DR OBRIEN Consulting Unavailable CARROLL, DR DARBY Primary Care Unavailable CHIPPEWA-CREE, DR CONNORS Consulting Unavailable CHIPPEWA-CREE, DR CONNORS Attending Unavailable DR DORY BARNES Admitting Unavailable DR RAMON CARROLL Primary Care Unavailable Ramon Carroll MD Unavailable [phone] Ramon Carroll MD Primary Care Provider [phone] ESTER PADILLA Attending Unavailable ESTER PADILLA Attending Unavailable ASHLI CARTER Attending Unavailable ASHLI CARTER Attending Unavailable Medications Current Medications Medication Drug Class(es) Dates Sig (Normalized) Sig (Original) [id number] 200 actuat albuterol 0.09 mg/actuat metered dose [...] 06/08/2024 Active atorvastatin 20 mg oral tablet (14 sources) HMG-CoA Reductase Inhibitor Start: 08-30-2023 take 20 mg by mouth once daily at bedtime Atorvastatin Active 20 MG PO Daily at bedtime August 30, 2023 12:00am baclofen 10 mg oral tablet (13 sources) gamma-Aminobutyric Acid-ergic Agonist Start: 03-06-2023 take [...] 1.5 mg/ml oral solution (1 source) Uncompetitive L-mzubux-M-asparta te Receptor Antagonist, Sigma-1 Agonist Start: 03-27-2023 take 10 mL by mouth every eight hours [place] DM 7.5-7.5 MG/5ML 10 mL Orally every 8 hours for 5 days Feb, Active ergocalciferol 1.25 mg oral capsule (9 sources) Provitamin D2 Compound Start: 06-27-2011 take 1 capsule by mouth every week Vitamin D (Ergocalciferol) 91953 UNIT 1 capsule Orally Once a Week for 90 days May, Active Start: 06-27-2011 everolimus (6 sources) Kinase Inhibitor, mTOR Inhibitor Immunosuppressant Zortress Active ferrous fumarate 325 mg oral tablet (14 sources) Start: Ferrous Fumarate 325 (106 Fe) [...] acid 180 mg delayed release oral tablet (13 sources) Antimetabolite Immunosuppressant Start: 01-27-2023 take 3 tablets by mouth in the morning mycophenolate (Myfortic) 180 MG EC tablet Take 3 tablets by mouth in the morning and 3 tablets before bedtime. 01/27/2023 Active nystatin [id number] unt/ml oral suspension (14 sources) Polyene Antifungal Start: 09-02-2023 take 5 mL by mouth four times daily nystatin (Mycostatin) [id number] UNIT/ML suspension Indications: Thrush, oral SWISH AND SWALLOW 5 MLS ORALLY 4 TIMES A DAY FOR 10 DAYS 60 mL 1 09/02/2023 Active Start: 08-30-2023 take 1 mL by mouth f our times daily Nystatin Active 5 ML PO Four times daily 200 10 August 30, 2023 12:00am swish and swallow [place] 0-Kuj-Zkh-Fish Oil (Fish Oil) 1,000 mg (120 mg-180 mg) capsule (1 source) Start: 08-30-2023 take 1 capsule by mouth once daily [place] 6-Bxl-Sam-Fish Oil (Fish Oil) 1,000 mg (120 mg-180 mg) capsule Active 1 CAP PO Daily August 30, 2023 12:00am PARoxetine hydrochloride 20 mg oral tablet (15 sources) Serotonin Reuptake Inhibitor Start: 10-14-2024 take 1 tablet by mouth in the morning PARoxetine (Paxil) 20 MG tablet Indications: Current moderate episode of major depressive disorder without prior episode (HCC) Take 1 tablet (20 mg) by mouth in the morning. 90 tablet 2 10/14/2024 Active Start: 08-30-2023 Paroxetine Hcl Active MG PO August 30, 2023 12:00am Start: 03-06-2023 End: 10-14-2024 take 1 tablet by mouth in the morning PARoxetine (Paxil) 20 MG tablet Indications: Current moderate episode of major depressive disorder without prior episode (HCC) Take 1 tablet (20 mg) by mouth in the morning. 90 tablet 3 03/06/2023 10/14/2024 Discontinued (Reorder) phenazopyridine hydrochloride 200 mg oral tablet (3 [...] day for 30 day(s) Active vitamin B12 (16 sources) Vitamin B12 Start: 08-30-2023 take 1 [...] take 1 capsule by mo [facility] every eight hours Tessalon Perles [...] [Other specified counseling] 06-01-2024 Episodic Anxiety disorders (18 sources) Mixed anxiety and depressive disorder; Translations: [Depression with anxiety] Onset: 3 03-06-2023 Chronic Chronic kidney disease (16 sources) Anemia in chronic kidney disease; Translations: [Anemia in Chronic Kidney Disease] Onset: 2 Chronic Chronic obstructive pulmonary disease and bronchiectasis (2 sources) Bronchitis, not specified as acute or chronic Episodic Disorders of lipid metabolism (19 sources) Hyperlipidemia, unspecified; Translations: [Hypercholesterolemia] Onset: 2 08-30-2023 Chronic Essential hypertension (20 sources) Hypertensive disorder; Translations: [HTN] Onset: 2 08-30-2023 Chronic Fluid and electrolyte disorders (3 sources) Hyperosmolality and or hypernatremia; Translations: [Hyperosmolality and/or hypernatremia] Episodic Genitourinary congenital anomalies (19 sources) Multiple congenital cysts of kidney; Translations: [Polycystic kidney, unspecified type] Onset: 4 08-30-2023 Chronic Immunity disorders (9 sources) Immunosuppression; Translations: [Immunodeficiency, unspecified] Onset: 5 06-01-2024 Chronic Immunizations and screening for infectious disease (6 sources) Contact with and (suspected) exposure to other viral communicable diseases; Translations: [Contact with and (suspected) exposure to other viral communicable diseases] Episodic Menopausal disorders (15 sources) Decreased estrogen level; 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-2023 Chronic Mood disorders (16 sources) Moderate major depression, single episode; Translations: [Major depressive disorder, single episode, moderate] Onset: 3 03-06-2023 Chronic Other acquired deformities (15 sources) Contracture of joint of foot; Translations: [Contracture, unspecified foot] Onset: 3 01-29-2023 Chronic Other aftercare (8 sources) Encounter for aftercare following kidney transplant; Translations: [ENCOUNTER FOR AFTERCARE 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 Other aftercare (2 sources) Encounter for aftercare following other organ transplant; Translations: [Encounter for aftercare following other organ transplant] Onset: 5 Chronic Other diseases of kidney and ureters (3 sources) Hyperparathyroidism due to renal insufficiency; 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, secondary, 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 Other nutritional; endocrine; and metabolic disorders (3 sources) Hyperphosphatemia; Translations: [Hyperphosphatemia] Chronic Other nutritional; endocrine; and metabolic disorders (9 sources) Hypomagnesemia; Translations: [Hypomagnesemia] Onset: 5 06-01-2024 [...] Classification Problem Date Documented Da te Episodic/Chronic Diabetes mellitus without complication (2 sources) Impaired fasting glucose; Translations: [Impaired fasting glucose] Onset: 04-01-2024 Episodic Diseases of mouth; excluding dental (14 sources) Other lesions of oral mucosa; Translations: [Parotitis] Onset: 01-29-2023 Resolved: 01-30-2023 Episodic Genitourinary symptoms and ill-defined conditions (10 sources) Hematuria, unspecified; Translations: [Dysuria] Onset: 12-31-2017 Resolved: 08-14-2021 Episodic Mood disorders (13 sources) Mood disorders Onset: 01-30-2023 Resolved: 06-01-2024 01-30-2023 Mycoses (15 sources) Candidiasis of mouth; Translations: [Candidal stomatitis] Onset: 09-02-2023 Resolved: 06-01-2024 08-30-2023 Episodic Other aftercare (1 source) Encounter for therapeutic drug level monitoring; Translations: [ENCOUNTER FOR THERAPEUTIC DRUG LEVEL MONITORING] Onset: 03-27-2017 Episodic Other aftercare (2 sources) Other skilled nursing (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 therapy; Translations: [OTHER HALF-WAY (CURRENT) DRUG THERAPY] Onset: 02-26-2017 Episodic Other liver diseases (15 sources) Alkaline phosphatase raised; Translations: [Abnormal levels of other serum enzymes] Onset: 01-29-2023 01-29-2023 Episodic Other screening for suspected conditions (not mental disorders or infectious disease) (19 sources) Encounter for screening mammogram for malignant neoplasm of breast; Translations: [Full blood count abnormal] Onset: 07-23-2022 Episodic Other skin disorders (1 source) Rash and other nonspecific skin eruption Onset: 10-27-2021 Resolved: 10-27-2021 Episodic Other upper respiratory infections (13 sources) Sinusitis; Translations: [Chronic sinusitis, unspecified] Onset: [...] WITH AUTO DIFFon BASOPHILS ABSOLUTE AUTO 0 [facility] Basophils/100 WBC (Bld) 0.1 % Low 0.2 - 2.0 % [facility] Eosinophils/100 WBC (Bld) 2.4 % 0.9 - 7.0 % [facility] Erythrocyte distribution width (RBC) [Ratio] 15 % 11.0 - 15.0 % [facility] Hematocrit (Bld) [Volume fraction] 45.6 % 36.0 - 48.0 % [facility] Hemoglobin (Bld) [Mass/Vol] 15 g/dL 12.0 - 16.0 g/dL [facility] IMMATURE GRANULOCYTES ABS AUTO 0.02 [facility] Immature granulocytes/100 WBC (Bld) 0.3 % 0.0 - 0.5 % [facility] Interpretation and review of laboratory results Abnormal [facility] LYMPHOCYTES ABSOLUTE AUTO 1.2 [facility] Lymphocytes/100 WBC (Bld) 15.3 % Low 20.5 - 60.0 % [facility] MCH (RBC) [Entitic mass] 30.9 pg 26.7 - 34.0 pg [facility] MCHC (RBC) [Mass/Vol] 32.9 g/dL 29.9 - 35.2 g/dL [facility] MCV (RBC) [Entitic vol] 94 fL 81.0 - 99.0 fL [facility] MONOCYTES ABSOLUTE AUTO 0.8 [facility] Monocytes/100 WBC (Bld) 10 % 1.7 - 12.0 % [facility] NEUTROPHILS ABSOLUTE AUTO 5.4 [facility] Neutrophils/100 WBC (Bld) 71.9 % 43.0 - 75.0 % [facility] Platelet mean volume (Bld) [Entitic vol] 11.3 fL 9.5 - 13.5 fL [facility] PLT 226 [facility] RBC 4.85 [facility] WBC 7.5 [facility] ALL CBC WITH AUTO DIFFon BASOPHILS ABSOLUTE AUTO 0 [facility] Basophils/100 WBC (Bld) 0.2 % 0.2 - 2.0 % [facility] Eosinophils/100 WBC (Bld) 2.9 % 0.9 - 7.0 % [facility] Erythrocyte distribution width (RBC) [Ratio] 14.8 % 11.0 - 15.0 % [facility] Hematocrit (Bld) [Volume fraction] 46.8 % 36.0 - 48.0 % [facility] Hemoglobin (Bld) [Mass/Vol] 15.2 g/dL 12.0 - 16.0 g/dL [facility] IMMATURE GRANULOCYTES ABS AUTO 0.02 [facility] Immature granulocytes/100 WBC (Bld) 0.3 % 0.0 - 0.5 % [facility] LYMPHOCYTES ABSOLUTE AUTO 1.5 [facility] Lymphocytes/100 WBC (Bld) 21.9 % 20.5 - 60.0 % [facility] MCH (RBC) [Entitic mass] 30.5 pg 26.7 - 34.0 pg [facility] MCHC (RBC) [Mass/Vol] 32.5 g/dL 29.9 - 35.2 g/dL [facility] MCV (RBC) [Entitic vol] 93.8 fL 81.0 - 99.0 fL [facility] MONOCYTES ABSOLUTE AUTO 0.7 [facility] Monocytes/100 WBC (Bld) 10.5 % 1.7 - 12.0 % [facility] NEUTROPHILS ABSOLUTE AUTO 4.3 [facility] Neutrophils/100 WBC (Bld) 64.2 % 43.0 - 75.0 % [facility] Platelet mean volume (Bld) [Entitic vol] 11.7 fL 9.5 - 13.5 fL [facility] EO # 0.2 [facility] PLT 200 [facility] RBC 4.99 [facility] WBC 6.7 [facility] ALL CBC WITH AUTO DIFFon BASOPHILS ABSOLUTE AUTO 0 [facility] Basophils/100 WBC (Bld) 0.1 % Low 0.2 - 2.0 % [facility] Eosinophils/100 WBC (Bld) 3.4 % 0.9 - 7.0 % [facility] Erythrocyte distribution width (RBC) [Ratio] 14.7 % 11.0 - 15.0 % [facility] Hematocrit (Bld) [Volume fraction] 43.1 % 36.0 - 48.0 % [facility] Hemoglobin (Bld) [Mass/Vol] 13.9 g/dL 12.0 - 16.0 g/dL [facility] IMMATURE GRANULOCYTES ABS AUTO 0.01 [facility] Immature granulocytes/100 WBC (Bld) 0.1 % 0.0 - 0.5 % [facility] Interpretation and review of laboratory results Abnormal [facility] LYMPHOCYTES ABSOLUTE AUTO 1.3 [facility] Lymphocytes/100 WBC (Bld) 18.5 % Low 20.5 - 60.0 % [facility] MCH (RBC) [Entitic mass] 30.5 pg 26.7 - 34.0 pg [facility] MCHC (RBC) [Mass/Vol] 32.3 g/dL 29.9 - 35.2 g/dL [facility] MCV (RBC) [Entitic vol] 94.5 fL 81.0 - 99.0 fL [facility] MONOCYTES ABSOLUTE AUTO 0.7 [facility] Monocytes/100 WBC (Bld) 9.9 % 1.7 - 12.0 % [facility] NEUTROPHILS ABSOLUTE AUTO 4.8 [facility] Neutrophils/100 WBC (Bld) 68 % 43.0 - 75.0 % [facility] Platelet mean volume (Bld) [Entitic vol] 11.6 fL 9.5 - 13.5 fL [facility] EO # 0.2 [facility] PLT 209 [facility] RBC 4.56 [facility] WBC 7.1 [facility] ALL CBC WITH AUTO DIFFon BASOPHILS ABSOLUTE AUTO 0 [facility] Basophils/100 WBC (Bld) 0.2 % 0.2 - 2.0 % [facility] Eosinophils/100 WBC (Bld) 2.7 % 0.9 - 7.0 % [facility] Erythrocyte distribution width (RBC) [Ratio] 14.6 % 11.0 - 15.0 % [facility] Hematocrit (Bld) [Volume fraction] 46.2 % 36.0 - 48.0 % [facility] Hemoglobin (Bld) [Mass/Vol] 14.8 g/dL 12.0 - 16.0 g/dL [facility] IMMATURE GRANULOCYTES ABS AUTO 0.01 [facility] Immature granulocytes/100 WBC (Bld) 0.2 % 0.0 - 0.5 % [facility] LYMPHOCYTES ABSOLUTE AUTO 1.4 [facility] Lymphocytes/100 WBC (Bld) 22.2 % 20.5 - 60.0 % [facility] MCH (RBC) [Entitic mass] 30.6 pg 26.7 - 34.0 pg [facility] MCHC (RBC) [Mass/Vol] 32 g/dL 29.9 - 35.2 g/dL [facility] MCV (RBC) [Entitic vol] 95.7 fL 81.0 - 99.0 fL [facility] MONOCYTES ABSOLUTE AUTO 0.7 [facility] Monocytes/100 WBC (Bld) 10.3 % 1.7 - 12.0 % [facility] NEUTROPHILS ABSOLUTE AUTO 4.1 [facility] Neutrophils/100 WBC (Bld) 64.4 % 43.0 - 75.0 % [facility] Platelet mean volume (Bld) [Entitic vol] 11.1 fL 9.5 - 13.5 [facility]L [facility] PLT 219 [facility] RBC 4.83 [facility] WBC 6.4 [facility] ALL CBC WITH AUTO DIFFon BASOPHILS ABSOLUTE AUTO 0 [facility] Basophils/100 WBC (Bld) 0.3 % 0.2 - 2.0 % [facility] Eosinophils/100 WBC (Bld) 2.8 % 0.9 - 7.0 % [facility] Erythrocyte distribution width (RBC) [Ratio] 14.9 % 11.0 - 15.0 % [facility] Hematocrit (Bld) [Volume fraction] 44.3 % 36.0 - 48.0 % [facility] Hemoglobin (Bld) [Mass/Vol] 14.2 g/dL 12.0 - 16.0 g/dL [facility] IMMATURE GRANULOCYTES ABS AUTO 0.02 [facility] Immature granulocytes/100 WBC (Bld) 0.3 % 0.0 - 0.5 % [facility] Interpretation and review of laboratory results Abnormal [facility] LYMPHOCYTES ABSOLUTE AUTO 1.2 [facility] Lymphocytes/100 WBC (Bld) 17.3 % Low 20.5 - 60.0 % [facility] MCH (RBC) [Entitic mass] 30.5 pg 26.7 - 34.0 pg [facility] MCHC (RBC) [Mass/Vol] 32.1 g/dL 29.9 - 35.2 g/dL [facility] MCV (RBC) [Entitic vol] 95.3 fL 81.0 - 99.0 fL [facility] MONOCYTES ABSOLUTE AUTO 0.7 [facility] Monocytes/100 WBC (Bld) 9.4 % 1.7 - 12.0 % [facility] NEUTROPHILS ABSOLUTE AUTO 5 [facility] Neutrophils/100 WBC (Bld) 69.9 % 43.0 - 75.0 % [facility] Platelet mean volume (Bld) [Entitic vol] 11.5 fL 9.5 - 13.5 fL [facility] EO # 0.2 [facility] PLT 210 [facility] TB RBC 4.65 [facility] WBC 7.1 [facility] 29on 04-01-2024 29 Addended by: ESTER FREDERICK on: 04/01/2024 02:20 PM Modules accepted: Orders [facility] Follow-Upon 04-01-2024 Follow-Up [id number] Tanika Grimm 1955 F Date Provider Department Center 04/01/2024 [id number] CARTER None Family History Family Status - Relation Status Age at Mother Father Level of Service:83531 [place] OFFICE/OUTPATIENT ESTABLISHED MOD MDM 30 MIN Reason for Visit and Comments: Kidney Follow-up [[id number]] - Pt has no concerns at this time. Normal [facility] ALL CBC WITH AUTO DIFFon BASOPHILS ABSOLUTE AUTO 0 [facility] Basophils/100 WBC (Bld) 0.2 % 0.2 - 2.0 % [facility] Eosinophils/100 WBC (Bld) 2.2 % 0.9 - 7.0 % [facility] Erythrocyte distribution width (RBC) [Ratio] 14.8 % 11.0 - 15.0 % [facility] Hematocrit (Bld) [Volume fraction] 45.3 % 36.0 - 48.0 % [facility] Hemoglobin (Bld) [Mass/Vol] 14.4 g/dL 12.0 - 16.0 g/dL [facility] IMMATURE GRANULOCYTES ABS AUTO 0.02 [facility] Immature granulocytes/100 WBC (Bld) 0.2 % 0.0 - 0.5 % [facility] Interpretation and review of laboratory results Abnormal [facility] LYMPHOCYTES ABSOLUTE AUTO 1.5 [facility] Lymphocytes/100 WBC (Bld) 18.6 % Low 20.5 - 60.0 % [facility] MCH (RBC) [Entitic mass] 30.6 pg 26.7 - 34.0 pg [facility] MCHC (RBC) [Mass/Vol] 31.8 g/dL 29.9 - 35.2 g/dL [facility] MCV (RBC) [Entitic vol] 96.4 fL 81.0 - 99.0 fL [facility] MONOCYTES ABSOLUTE AUTO 0.8 [facility] Monocytes/100 WBC (Bld) 10 % 1.7 - 12.0 % [facility] NEUTROPHILS ABSOLUTE AUTO 5.5 [facility] Neutrophils/100 WBC (Bld) 68.8 % 43.0 - 75.0 % [facility] Platelet mean volume (Bld) [Entitic vol] 11.4 fL 9.5 - 13.5 fL [facility] EO # 0.2 [facility] TB PLT 197 [facility] RBC 4.7 [facility] WBC 8.1 [facility] TACROLIMUS (FK506), BLOODon 02-17-2024 TACROLIMUS (FK506), BLOOD 4.5 ng/mL 2.0 - 20.0 ng/mL [facility] Comment on above: This test was develo ped and its performance characteristics determined by [facility]. It has not been cleared or approved by the Food and Drug Administration. Trough (immediately following transplant) 15.0 Trough (steady state, 2 weeks or more after transplant): 3.0 - 8.0 Performed by LC-MS/MS technology. Performed at: [address] [id number] Manager Cash: Marizol Singleton MD, Phone: [phone] [facility] ALL CBC WITH AUTO DIFFon BASOPHILS ABSOLUTE AUTO 0 [facility] Basophils/100 WBC (Bld) 0.3 % 0.2 - 2.0 % [facility] Eosinophils/100 WBC (Bld) 2.1 % 0.9 - 7.0 % [facility] Erythrocyte distribution width (RBC) [Ratio] 14.7 % 11.0 - 15.0 % [facility] Hematocrit (Bld) [Volume fraction] 43.3 % 36.0 - 48.0 % [facility] Hemoglobin (Bld) [Mass/Vol] 14.2 g/dL 12.0 - 16.0 g/dL [facility] IMMATURE GRANULOCYTES ABS AUTO 0.03 [facility] Immature granulocytes/100 WBC (Bld) 0.4 % 0.0 - 0.5 % [facility] LYMPHOCYTES ABSOLUTE AUTO 1.4 [facility] Lymphocytes/100 WBC (Bld) 20.7 % 20.5 - 60.0 % [facility] MCH (RBC) [Entitic mass] 30.9 pg 26.7 - 34.0 pg [facility] MCHC (RBC) [Mass/Vol] 32.8 g/dL 29.9 - 35.2 g/dL [facility] MCV (RBC) [Entitic vol] 94.1 fL 81.0 - 99.0 fL [facility] MONOCYTES ABSOLUTE AUTO 0.7 [facility] Monocytes/100 WBC (Bld) 10.8 % 1.7 - 12.0 % [facility] NEUTROPHILS ABSOLUTE AUTO 4.4 [facility] Neutrophils/100 WBC (Bld) 65.7 % 43.0 - 75.0 % [facility] Platelet mean volume (Bld) [Entitic vol] 11.3 fL 9.5 - 13.5 fL [facility] PLT 193 [facility] RBC 4.6 [facility] WBC 6.7 [facility] ALL MAGNESIUMon 02-13-2024 Magnesium [Mass/Vol] 1.7 mg/dL Low 1.8 - 2 .4 mg/dL [facility] ALL PHOSPHOROUSon 02-13-2024 Phosphate [Mass/Vol] 3.4 mg/dL 2.6 - 4 .7 mg/dL [facility] ALL URIC ACIDon 02-13-2024 Urate [Mass/Vol] 4.7 mg/dL 2.6 - 6.0 mg/dL [facility] CMP (CMP) (FOR REMOTE FH C USE)on 02-13-2024 Albumin [Mass/Vol] 3.6 g/dL 3.4 - 5.0 g/dL [facility] ALBUMIN GLOBULIN RATIO 1.2 [facility] ALP [Catalytic activity/Vol] 131 U/L High 46 - 116 U/L [facility] ALT [Catalytic activity/Vol] 16 U/L 14 - 59 U/L [facility] Anion gap [Moles/Vol] 14 mmol/L [facility] AST [Catalytic activity/Vol] 13 U/L Low 15 - 37 U/L [facility] Bilirubin [Mass/Vol] 0.6 mg/dL 0.2 - 1 .0 mg/dL [facility] Calcium [Mass/Vol] 9.1 mg/dL 8.5 - 10. 1 mg/dL [facility] Chloride [Moles/Vol] 108 mmol/L High 98 - 10 7 mmol/L [facility] CO2 [Moles/Vol] 26.1 mmol/L 21.0 - 32.0 mmol/L [facility] Creatinine [Mass/Vol] 0.97 mg/dL 0.55 - 1.02 mg/dL [facility] GFR/1.73 sq M.predicted CKD-EPI (S/P/Bld) [Vol rate/Area] >60 >=60 mL/min/1.73m 2 [facility] Globulin (S) [Mass/Vol] 2.9 g/dL [facility] Glucose [Mass/Vol] 95 mg/dL 74 - 106 mg/dL [facility] Potassium [Moles/Vol] 4.1 mmol/L 3.5 - 5.1 mmol/L [facility] Protein [Mass/Vol] 6.5 g/dL 6.4 - 8.2 g/dL [facility] Sodium [Moles/Vol] 144 mmol/L 136 - 145 mmol/L [facility] TBH EGFR-NON AF LATVIAN 57 Low >=60 mL/min/1.73m 2 [facility] Urea nitrogen [Mass/Vol] 16 mg/dL 7.0 - 18.0 mg/dL [facility] Urea nitrogen/Creatinine [Mass ratio] 16.5 mg/mg [facility] [employer]ILIRUB[employer], DIRECTon Bilirubin.indirect [Mass/Vol] 0.1 mg/dL 0.0 - 0.2 mg/dL [facility] No Panel Informationon 02-12 Interpretation and review of laboratory results Abnormal [facility] CLINISYNC [facility] ALL CBC WITH AUTO DIFFon BASOPHILS ABSOLUTE AUTO 0 [facility] Basophils/100 WBC (Bld) 0.1 % Low 0.2 - 2.0 % [facility] Eosinophils/100 WBC (Bld) 2.5 % 0.9 - 7.0 % [facility] Erythrocyte distribution width (RBC) [Ratio] 14.6 % 11.0 - 15.0 % [facility] Hematocrit (Bld) [Volume fraction] 43.8 % 36.0 - 48.0 % [facility] Hemoglobin (Bld) [Mass/Vol] 14 g/dL 12.0 - 16.0 g/dL [facility] IMMATURE GRANULOCYTES ABS AUTO 0.02 [facility] Immature granulocytes/100 WBC (Bld) 0.3 % 0.0 - 0.5 % [facility] Interpretation and review of laboratory results Abnormal [facility] LYMPHOCYTES ABSOLUTE AUTO 1.4 [facility] Lymphocytes/100 WBC (Bld) 18.7 % Low 20.5 - 60.0 % [facility] MCH (RBC) [Entitic mass] 30.3 pg 26.7 - 34.0 pg [facility] MCHC (RBC) [Mass/Vol] 32 g/dL 29.9 - 35.2 g/dL [facility] MCV (RBC) [Entitic vol] 94.8 fL 81.0 - 99.0 fL [facility] MONOCYTES ABSOLUTE AUTO 0.8 [facility] Monocytes/100 WBC (Bld) 11.1 % 1.7 - 12.0 % [facility] NEUTROPHILS ABSOLUTE AUTO 4.9 [facility] Neutrophils/100 WBC (Bld) 67.3 % 43.0 - 75.0 % [facility] Platelet mean volume (Bld) [Entitic vol] 11.2 fL 9.5 - 13.5 fL [facility] TBH EO # 0.2 [facility] TBH PLT 219 [facility] TB RBC 4.62 [facility] WBC 7.3 [facility] ALL CBC WITH AUTO DIFFon BASOPHILS ABSOLUTE AUTO 0.0 [facility] Basophils/100 WBC (Bld) 0.3 % 0.2 - 2.0 % [facility] Eosinophils/100 WBC (Bld) 3.6 % 0.9 - 7.0 % [facility] Erythrocyte distribution width (RBC) [Ratio] 14.7 % 11.0 - 15.0 % [facility] Hematocrit (Bld) [Volume fraction] 46.0 % 36.0 - 48.0 % [facility] Hemoglobin (Bld) [Mass/Vol] 14.7 g/dL 12.0 - 16.0 g/dL [facility] IMMATURE GRANULOCYTES ABS AUTO 0.01 [facility] Immature granulocytes/100 WBC (Bld) 0.2 % 0.0 - 0.5 % [facility] LYMPHOCYTES ABSOLUTE AUTO 1.4 [facility] Lymphocytes/100 WBC (Bld) 22.4 % 20.5 - 60.0 % [facility] MCH (RBC) [Entitic mass] 30.1 pg 26.7 - 34.0 pg [facility] MCHC (RBC) [Mass/Vol] 32.0 g/dL 29.9 - 35.2 g/dL [facility] MCV (RBC) [Entitic vol] 94.3 fL 81.0 - 99.0 fL [facility] MONOCYTES ABSOLUTE AUTO 0.6 [facility] Monocytes/100 WBC (Bld) 9.6 % 1.7 - 12.0 % [facility] NEUTROPHILS ABSOLUTE AUTO 3.9 [facility] Neutrophils/100 WBC (Bld) 63.9 % 43.0 - 75.0 % [facility] Platelet mean volume (Bld) [Entitic vol] 11.6 fL 9.5 - 13.5 fL [facility] TBH EO # 0.2 [facility] TBH PLT 202 [facility] RBC 4.88 [facility] WBC 6.0 [facility] MLR HEMOGLOBIN A1Con 024 Glucose [Mass/Vol] 108 mg/dL [facility] HbA1c (Bld) [Mass fraction] 5.4 % 4.5 - 6.2 % [facility] Comment on above: ADA RECOMMENDED LIMI T 4.0 - 6.0 ADA THERAPEUTIC TARGET < 7.0 ACTION SUGGESTED > 7.0 [facility]23 Documentation [id number] Tanika Grimm 1955 F Date Provider Department [place] 12/09/2023 FERNANDA MARVIN None Family History Family Status - Relation Status Age at Mother Father Reason for Visit and Comments: Prior auth : Mycophenolate [Other] [facility] Documentationon 11-26-2023 Documentation [id number] Joi Grimmmaria de jesus Shabazz 1955 F Date Provider Department [facility] 11/26/2023 860-FERNANDA CAREY TXP None Family History Family Status - Relation Status Age at Mother Father Reason for Visit and Comments: Prior auth Tac 0.5mg [Other] [facility] Documentationon 10-27-2023 Documentation [id number] Tanika Grimm Harika 1955 F Date Provider Department Center 10/27/2023 750-ANEL MIRANDA TXP None Family History Family Status - Relation Status Age at Mother Father Normal [facility] No Panel InformationOrdered By: Lindsay Soria on 08-30-2023 Quick Strep (POC) [facility] COVID/FLU/RSV RT-PCRon 03-27 SARS-CoV-2 (COVID-19) RNA MURALI+probe Ql (Unsp spec) Negative [facility] Other COVID/FLU/RSV RT-PCR Negative [facility] Other Quick Strepon 03-27-2023 S. pyogenes Org specific cx Ql (Throat) Negative [facility] Other Quick Strep [facility] Other BILIRUBIN CONJUGATED (DIRECT )on 08-12-2022 BILI, CONJUGATED 0.1 mg/dL Normal 0.0-0.2 [facility] Comment on above: Performed By: #### D DAVIDSON, MG, PHOS, CMP, LIPID, URIC #### [facility] [address] [address] [address] Sarmad Patino GLYCOHEMOGLOBIN A1Con 2022 ADA RECOMMENDATION SEE BELOW Normal [facility] Comment on above: Result Comment: ADA RECOMMENDED LIMIT 4.0 - 6.0 ADA THERAPEUTIC TARGET < 7.0 ACTION SUGGESTED > 7.0 Performed By: #### D DAVIDSON, MG, PHOS, CMP, LIPID, URIC #### [facility] [address] [address] [address] Sarmad Patino Glucose [Mass/Vol] 108 mg/dL Normal [facility] Comment on above: Performed By: #### D DAVIDSON, MG, PHOS, CMP, LIPID, URIC #### [facility] [address] [address] [address] Sarmad Patino HbA1c (Bld) [Mass fraction] 5.4 % Normal 4.5-6.2 [facility] Comment on above: Performed By: #### D DAVIDSON, MG, PHOS, CMP, LIPID, URIC #### [facility] [address] [address] [address] Sarmad Patino MAGNESIUMon 08-12-2022 Magnesium [Mass/Vol] 1.7 mg/dL Critically low 1.8-2.4 [facility] Comment on above: Performed By: #### D DAVIDSON, MG, PHOS, CMP, LIPID, URIC #### [facility] [address] [address] [address] Sarmad Patino PHOSPHORUSon 08-12-2022 Phosphate [Mass/Vol] 3.9 mg/dL Normal 2.6-4.7 [facility] Comment on above: Performed By: #### U JUVE, LIPID, MG, CMP, DBIL, PHOS #### [facility] [address] [address] [address] Sarmad Patino PROF 14(COMP METB)on 023 Albumin [Mass/Vol] 3.9 g/dL Normal 3.4-5.0 [facility] Comment on above: Performed By: #### D DAVIDSON, MG, PHOS, CMP, LIPID, URIC #### [facility] [address] [address] [address] Sarmad Patino Albumin/Globulin [Mass ratio] 1.2 {ratio} Normal [facility] Comment on above: Performed By: #### D DAVIDSON, MG, PHOS, CMP, LIPID, URIC #### [facility] [address] [address] [address] Sarmad Patino ALP [Catalytic activity/Vol] 126 U/L Critically high 46-116 [facility] Comment on above: Performed By: #### D DAVIDSON, MG, PHOS, CMP, LIPID, URIC #### [facility] [address] [address] [address] Sarmad Patino ALT [Catalytic activity/Vol] 18 U/L Normal 14-59 [facility] Comment on above: Performed By: #### D DAVIDSON, MG, PHOS, CMP, LIPID, URIC #### [facility] [address] [address] [address] Sarmad Patino Anion gap [Moles/Vol] 10.4 mmol/L Normal [facility] Comment on above: Performed By: #### D DAVIDSON, MG, PHOS, CMP, LIPID, URIC #### [facility] [address] [place] [address] Dr. Sarmad Patino AST [Catalytic activity/Vol] 14 U/L Critically low 15-37 [facility] Comment on above: Performed By: #### D DAVIDSON, MG, PHOS, CMP, LIPID, URIC #### [facility] [address] [address] [address] Sarmad Patino Bilirubin [Mass/Vol] 0.7 mg/dL Normal 0.2-1.0 [facility] Comment on above: Performed By: #### D DAVIDSON, MG, PHOS, CMP, LIPID, URIC #### [facility] [address] [address] [address] Sarmad Patino Calcium [Mass/Vol] 9.8 mg/dL Normal 8.5-10.1 [facility] Comment on above: Performed By: #### D DAVIDSON, MG, PHOS, CMP, LIPID, URIC #### [facility] [address] [address] [address] Sarmad Patino Chloride [Moles/Vol] 106 mmol/L Normal 98-107 [facility] Comment on above: Performed By: #### D DAVIDSON, MG, PHOS, CMP, LIPID, URIC #### [facility] [address] [address] [address] Sarmad Patino CO2 [Moles/Vol] 32.1 mmol/L Critically high 21.0-32.0 [facility] Comment on above: Performed By: #### D DAVIDSON, MG, PHOS, CMP, LIPID, URIC #### [facility] [address] [address] [address] Sarmad Patino Creatinine [Mass/Vol] 0.92 mg/dL Normal 0.55-1.02 [facility] Comment on above: Performed By: #### D DAVIDSON, MG, PHOS, CMP, LIPID, URIC #### [facility] [address] [address] [address] Sarmad Patino EGFR-AF LATVIAN >60 Normal >=60 [facility] Comment on above: Performed By: #### D DAVIDSON, MG, PHOS, CMP, LIPID, URIC #### [facility] [address] [place] [address] Dr. Sarmad Patino EGFR-NON AF LATVIAN >60 Normal >=60 [facility] Comment on above: Performed By: #### D DAVIDSON, MG, PHOS, CMP, LIPID, URIC #### [facility] [address] [place] [address] Dr. Sarmad Patino Globulin (S) [Mass/Vol] 3.3 g/dL Normal [facility] Comment on above: Performed By: #### D DAVIDSON, MG, PHOS, CMP, LIPID, URIC #### [facility] [address] [place] [address] Dr. Sarmad Patino Glucose [Mass/Vol] 102 mg/dL Normal 74-106 [facility] Comment on above: Performed By: #### D DAVIDSON, MG, PHOS, CMP, LIPID, URIC #### [facility] [address] [address] [address] Sarmad Patino Potassium [Moles/Vol] 4.5 mmol/L Normal 3.5-5.1 [facility] Comment on above: Performed By: #### D DAVIDSON, MG, PHOS, CMP, LIPID, URIC #### [facility] [address] [place] [address] Dr. Sarmad Patino Protein [Mass/Vol] 7.2 g/dL Normal 6.4-8.2 [facility] Comment on above: Performed By: #### D DAVIDSON, MG, PHOS, CMP, LIPID, URIC #### [facility] [address] [address] [address] Sarmad Patino Sodium [Moles/Vol] 144 mmol/L Normal 136-145 [facility] Comment on above: Performed By: #### D DAVIDSON, MG, PHOS, CMP, LIPID, URIC #### [facility] [address] [address] [address] Sarmad Patino Urea nitrogen [Mass/Vol] 20.0 mg/dL Critically high 7.0-18.0 [facility] Comment on above: Performed By: #### D DAVIDSON, MG, PHOS, CMP, LIPID, URIC #### [facility] [address] [address] [address] Sarmad Patino Urea nitrogen/Creatinine [Mass ratio] 21.7 mg/mg Normal [facility] Comment on above: Performed By: #### D DAVIDSON, MG, PHOS, CMP, LIPID, URIC #### [facility] [address] [address] [address] Sarmad Patino URIC ACID SERUMon 08-12-2022 Urate [Mass/Vol] 5.2 mg/dL Normal 2.6-6.0 [facility] Comment on above: Performed By: #### D DAVIDSON, MG, PHOS, CMP, LIPID, URIC #### [facility] [address] [address] [address] Sarmad Patino MG MAMM SCREEN 3D DAVIDSON CADon 07-23-2022 MG MAMM SCREEN 3D DAVIDSON CAD Patient: TANIKA GRIMM Exam Date: 07/23/2022 : 1955 Gender:F Ordering : DR RAMON CARROLL M.D. Admission #: [id number] Family : Order #: [id number] CLICK HERE TO VIEW EXAM RADIOLOGY REPORT [...] None Family Cancers None LOCATION: [facility] BREAST COMPOSITION: Extremely dense, which lowers the [...] Bernard M.D. on 07/23/2022 at 16:59 Normal [facility] FK506 (TACROLIMUS) WHOLE BLO ODon 07-10-2022 Tacrolimus (FK506), Blood 3.8 ng/mL Normal 2.0-20.0 [facility] Comment on above: Result Comment: Trou gh (immediately following transplant) 15.0 . Trough (steady state, 2 weeks or more after transplant): 3.0 - 8.0 . Performed by LC-MS/MS technology. Performed By: #### D DAVIDSON, MG, PHOS, CMP, LIPID, URIC #### [facility] [address] [address] [address] Sarmad Patino BILIRUBIN CONJUGATED (DIRECT )on 07-08-2022 BILI, CONJUGATED 0.1 mg/dL Normal 0.0-0.2 [facility] Comment on above: Performed By: #### U JUVE, LIPID, MG, CMP, DBIL, PHOS #### [facility] [address] [address] [address] Sarmad Patino GLYCOHEMOGLOBIN A1Con 2022 ADA RECOMMENDATION SEE BELOW Normal [facility] Comment on above: Result Comment: ADA RECOMMENDED LIMIT 4.0 - 6.0 ADA THERAPEUTIC TARGET < 7.0 ACTION SUGGESTED > 7.0 Performed By: #### D DAVIDSON, MG, PHOS, CMP, LIPID, URIC #### [facility] [address] [address] [address] Sarmad Patino Glucose [Mass/Vol] 105 mg/dL Normal [facility] Comment on above: Performed By: #### D DAVIDSON, MG, PHOS, CMP, LIPID, URIC #### [facility] [address] [address] [address] Sarmad Patino HbA1c (Bld) [Mass fraction] 5.3 % Normal 4.5-6.2 [facility] Comment on above: Performed By: #### D DAVIDSON, MG, PHOS, CMP, LIPID, URIC #### [facility] [address] [address] [address] Sarmad Patino MAGNESIUMon 07-08-2022 Magnesium [Mass/Vol] 1.8 mg/dL Normal 1.8-2.4 [facility] Comment on above: Performed By: #### U JUVE, LIPID, MG, CMP, DBIL, PHOS #### [facility] [address] [place] [address] Dr. Sarmad Patino PHOSPHORUSon 07-08-2022 Phosphate [Mass/Vol] 3.8 mg/dL Normal 2.6-4.7 [facility] Comment on above: Performed By: #### U JUVE, LIPID, MG, CMP, DBIL, PHOS #### [facility] [address] [place] [address] Dr. Sarmad Patino PROF 14(COMP METB)on 023 Albumin [Mass/Vol] 3.7 g/dL Normal 3.4-5.0 [facility] Comment on above: Performed By: #### U JUVE, LIPID, MG, CMP, DBIL, PHOS #### [facility] [address] [place] [address] Dr. Sarmad Patino Albumin/Globulin [Mass ratio] 1.1 {ratio} Normal [facility] Comment on above: Performed By: #### U JUVE, LIPID, MG, CMP, DBIL, PHOS #### [facility] [address] [place] [address] Dr. Sarmad Patino ALP [Catalytic activity/Vol] 124 U/L Critically high 46-116 [facility] Comment on above: Performed By: #### U JUVE, LIPID, MG, CMP, DBIL, PHOS #### [facility] [address] [address] [address] Sarmad Patino ALT [Catalytic activity/Vol] 20 U/L Normal 14-59 [facility] Comment on above: Performed By: #### U JUVE, LIPID, MG, CMP, DBIL, PHOS #### [facility] [address] [address] [address] Sarmad Patino Anion gap [Moles/Vol] 11.5 mmol/L Normal [facility] Comment on above: Performed By: #### U JUVE, LIPID, MG, CMP, DBIL, PHOS #### [facility] [address] [place] [address] Dr. Sarmad Patino AST [Catalytic activity/Vol] 12 U/L Critically low 15-37 [facility] Comment on above: Performed By: #### U JUVE, LIPID, MG, CMP, DBIL, PHOS #### [facility] [address] [address] [address] Sarmad Patino Bilirubin [Mass/Vol] 0.5 mg/dL Normal 0.2-1.0 [facility] Comment on above: Performed By: #### U JUVE, LIPID, MG, CMP, DBIL, PHOS #### [facility] [address] [place] [address] Dr. Sarmad Patino Calcium [Mass/Vol] 9.6 mg/dL Normal 8.5-10.1 [facility] Comment on above: Performed By: #### U JUVE, LIPID, MG, CMP, DBIL, PHOS #### [facility] [address] [address] [address] Sarmad Patino Chloride [Moles/Vol] 106 mmol/L Normal 98-107 [facility] Comment on above: Performed By: #### U JUVE, LIPID, MG, CMP, DBIL, PHOS #### [facility] [address] [address] [address] Sarmad Patino CO2 [Moles/Vol] 29.7 mmol/L Normal 21.0-32.0 [facility] Comment on above: Performed By: #### U JUVE, LIPID, MG, CMP, DBIL, PHOS #### [facility] [address] [address] [address] Sarmad Patino Creatinine [Mass/Vol] 0.77 mg/dL Normal 0.55-1.02 [facility] Comment on above: Performed By: #### U JUVE, LIPID, MG, CMP, DBIL, PHOS #### [facility] [address] [place] [address] Dr. Sarmad Patino EGFR-AF LATVIAN >60 Normal >=60 [facility] Comment on above: Performed By: #### U JUVE, LIPID, MG, CMP, DBIL, PHOS #### [facility] [address] [place] [address] Dr. Sarmad Patino EGFR-NON AF LATVIAN >60 Normal >=60 [facility] Comment on above: Performed By: #### U JUVE, LIPID, MG, CMP, DBIL, PHOS #### [facility] [address] [address] [address] Sarmad Patino Globulin (S) [Mass/Vol] 3.4 g/dL Normal [facility] Comment on above: Performed By: #### U JUVE, LIPID, MG, CMP, DBIL, PHOS #### [facility] [address] [place] [address] Dr. Sarmad Patino Glucose [Mass/Vol] 97 mg/dL Normal 74-106 [facility] Comment on above: Performed By: #### U JUVE, LIPID, MG, CMP, DBIL, PHOS #### [facility] [address] [address] [address] Sarmad Patino Potassium [Moles/Vol] 4.2 mmol/L Normal 3.5-5.1 [facility] Comment on above: Performed By: #### U JUVE, LIPID, MG, CMP, DBIL, PHOS #### [facility] [address] [address] [address] Sarmad Patino Protein [Mass/Vol] 7.1 g/dL Normal 6.4-8.2 [facility] Comment on above: Performed By: #### U JUVE, LIPID, MG, CMP, DBIL, PHOS #### [facility] [address] [place] [address] Dr. Sarmad Patino Sodium [Moles/Vol] 143 mmol/L Normal 136-145 [facility] Comment on above: Performed By: #### U JUVE, LIPID, MG, CMP, DBIL, PHOS #### [facility] [address] [place] [address] Dr. Sarmad Patino Urea nitrogen [Mass/Vol] 26.0 mg/dL Critically high 7.0-18.0 [facility] Comment on above: Performed By: #### U JUVE, LIPID, MG, CMP, DBIL, PHOS #### [facility] [address] [place] [address] Dr. Sarmad Patino Urea nitrogen/Creatinine [Mass ratio] 33.8 mg/mg Normal [facility] Comment on above: Performed By: #### U JUVE, LIPID, MG, CMP, DBIL, PHOS #### [facility] [address] [place] [address] Dr. Sarmad Patino URIC ACID SERUMon 07-08-2022 Urate [Mass/Vol] 4.7 mg/dL Normal 2.6-6.0 [facility] Comment on above: Performed By: #### U JUVE, LIPID, MG, CMP, DBIL, PHOS #### [facility] [address] [place] [address] Dr. Sarmad Patino FK506 (TACROLIMUS) WHOLE BLO ODon 06-13-2022 Tacrolimus (FK506), Blood 3.0 ng/mL Normal 2.0-20.0 [facility] Comment on above: Result Comment: Trou gh (immediately following transplant) 15.0 . Trough (steady state, 2 weeks or more after transplant): 3.0 - 8.0 . Performed by LC-MS/MS technology. Performed By: #### D DAVIDSON, MG, PHOS, CMP, LIPID, URIC #### [facility] [address] [place] [address] Dr. Sarmad Patino BK VIRUS PCR QUANTon 023 BKV DNA QUANT PCR PLASMA Negative Normal Negative [facility] Comment on above: Result Comment: No B K DNA detected. . The linear range of the assay is 22 - 100,000,000 IU/mL. Performed By: #### B KVIRUS #### [facility] [address] [place] [address] Dr. Sarmad Patino Log10 BKV DNA Plasma Normal [facility] Comment on above: Performed By: #### B KVIRUS #### [facility] [address] [place] [address] Dr. Sarmad Patino BILIRUBIN CONJUGATED (DIRECT )on 06-10-2022 BILI, CONJUGATED 0.1 mg/dL Normal 0.0-0.2 [facility] Comment on above: Performed By: #### U JUVE, LIPID, MG, CMP, DBIL, PHOS #### [facility] [address] [place] [address] Dr. Sarmad Patino GLYCOHEMOGLOBIN A1Con 2022 ADA RECOMMENDATION SEE BELOW Normal [facility] Comment on above: Result Comment: ADA RECOMMENDED LIMIT 4.0 - 6.0 ADA THERAPEUTIC TARGET < 7.0 ACTION SUGGESTED > 7.0 Performed By: #### D DAVIDSON, MG, PHOS, CMP, LIPID, URIC #### [facility] [address] [place] [address] Dr. Sarmad Patino Glucose [Mass/Vol] 114 mg/dL Normal [facility] Comment on above: Performed By: #### D DAVIDSON, MG, PHOS, CMP, LIPID, URIC #### [facility] [address] [place] [address] Dr. Sarmad Patino HbA1c (Bld) [Mass fraction] 5.6 % Normal 4.5-6.2 [facility] Comment on above: Performed By: #### D DAVIDSON, MG, PHOS, CMP, LIPID, URIC #### [facility] [address] [place] [address] Dr. Sarmad Patino MAGNESIUMon 06-10-2022 Magnesium [Mass/Vol] 1.6 mg/dL Critically low 1.8-2.4 [facility] Comment on above: Performed By: #### U JUVE, LIPID, MG, CMP, DBIL, PHOS #### [facility] [address] [place] [address] Dr. Sarmad Patino PROF 14(COMP METB)on 023 Albumin [Mass/Vol] 3.7 g/dL Normal 3.4-5.0 [facility] Comment on above: Performed By: #### U JUVE, LIPID, MG, CMP, DBIL, PHOS #### [facility] [address] [place] [address] Dr. Sarmad Patino Albumin/Globulin [Mass ratio] 1.1 {ratio} Normal [facility] Comment on above: Performed By: #### U JUVE, LIPID, MG, CMP, DBIL, PHOS #### [facility] [address] [place] [address] Dr. Sarmad Patino ALP [Catalytic activity/Vol] 142 U/L Critically high 46-116 [facility] Comment on above: Performed By: #### U JUVE, LIPID, MG, CMP, DBIL, PHOS #### [facility] [address] [place] [address] Dr. Sarmad Patino ALT [Catalytic activity/Vol] 29 U/L Normal 14-59 [facility] Comment on above: Performed By: #### U JUVE, LIPID, MG, CMP, DBIL, PHOS #### [facility] [address] [place] [address] Dr. Sarmad Patino Anion gap [Moles/Vol] 11.1 mmol/L Normal [facility] Comment on above: Performed By: #### U JUVE, LIPID, MG, CMP, DBIL, PHOS #### [facility] [address] [address] [address] Samrad Patino AST [Catalytic activity/Vol] 19 U/L Normal 15-37 [facility] Comment on above: Performed By: #### U JUVE, LIPID, MG, CMP, DBIL, PHOS #### [facility] [address] [place] [address] Dr. Sarmad Patino Bilirubin [Mass/Vol] 0.6 mg/dL Normal 0.2-1.0 [facility] Comment on above: Performed By: #### U JUVE, LIPID, MG, CMP, DBIL, PHOS #### [facility] [address] [place] [address] Dr. Sarmad Patino Calcium [Mass/Vol] 9.8 mg/dL Normal 8.5-10.1 [facility] Comment on above: Performed By: #### U JUVE, LIPID, MG, CMP, DBIL, PHOS #### [facility] [address] [place] [address] Dr. Sarmad Patino Chloride [Moles/Vol] 103 mmol/L Normal 98-107 [facility] Comment on above: Performed By: #### U JUVE, LIPID, MG, CMP, DBIL, PHOS #### [facility] [address] [place] [address] Dr. Sarmad Patino CO2 [Moles/Vol] 30.7 mmol/L Normal 21.0-32.0 [facility] Comment on above: Performed By: #### U JUVE, LIPID, MG, CMP, DBIL, PHOS #### [facility] [address] [place] [address] Dr. Sarmad Patino Creatinine [Mass/Vol] 0.79 mg/dL Normal 0.55-1.02 [facility] Comment on above: Performed By: #### U JUVE, LIPID, MG, CMP, DBIL, PHOS #### [facility] [address] [place] [address] Dr. Sarmad Patino EGFR-AF LATVIAN >60 Normal >=60 [facility] Comment on above: Performed By: #### U JUVE, LIPID, MG, CMP, DBIL, PHOS #### [facility] [address] [place] [address] Dr. Sarmad Patino EGFR-NON AF LATVIAN >60 Normal >=60 [facility] Comment on above: Performed By: #### U JUVE, LIPID, MG, CMP, DBIL, PHOS #### [facility] [address] [place] [address] Dr. Sarmad Patino Globulin (S) [Mass/Vol] 3.4 g/dL Normal [facility] Comment on above: Performed By: #### U JUVE, LIPID, MG, CMP, DBIL, PHOS #### [facility] [address] [place] [address] Dr. Sarmad Patino Glucose [Mass/Vol] 94 mg/dL Normal 74-106 [facility] Comment on above: Performed By: #### U JUVE, LIPID, MG, CMP, DBIL, PHOS #### [facility] [address] [place] [address] Dr. Sarmad Patino Potassium [Moles/Vol] 3.8 mmol/L Normal 3.5-5.1 [facility] Comment on above: Performed By: #### U JUVE, LIPID, MG, CMP, DBIL, PHOS #### [facility] [address] [place] [address] Dr. Sarmad Patino Protein [Mass/Vol] 7.1 g/dL Normal 6.4-8.2 [facility] Comment on above: Performed By: #### U JUVE, LIPID, MG, CMP, DBIL, PHOS #### [facility] [address] [place] [address] Dr. Sarmad Patino Sodium [Moles/Vol] 141 mmol/L Normal 136-145 [facility] Comment on above: Performed By: #### U JUVE, LIPID, MG, CMP, DBIL, PHOS #### [facility] [address] [place] [address] Dr. Sarmad Patino Urea nitrogen [Mass/Vol] 17.0 mg/dL Normal 7.0-18.0 [facility] Comment on above: Performed By: #### U JUVE, LIPID, MG, CMP, DBIL, PHOS #### [facility] [address] [place] [address] Dr. Sarmad Patino Urea nitrogen/Creatinine [Mass ratio] 21.5 mg/mg Normal [facility] Comment on above: Performed By: #### U JUVE, LIPID, MG, CMP, DBIL, PHOS #### [facility] [address] [place] [address] Dr. Sarmad Patino URIC ACID SERUMon 06-10-2022 Urate [Mass/Vol] 5.1 mg/dL Normal 2.6-6.0 [facility] Comment on above: Performed By: #### U JUVE, LIPID, MG, CMP, DBIL, PHOS #### [facility] [address] [place] [address] Dr. Sarmad aPtino BK VIRUS PCR QUANTon 023 BKV DNA QUANT PCR PLASMA Negative Normal Negative [facility] Comment on above: Result Comment: No B K DNA detected. . The linear range of the assay is 22 - 100,000,000 IU/mL. Performed By: #### U JUVE, LIPID, MG, CMP, DBIL, PHOS #### [facility] [address] [place] [address] Dr. Sarmad Patino Log10 BKV DNA Plasma Normal [facility] Comment on above: Performed By: #### U JUVE, LIPID, MG, CMP, DBIL, PHOS #### [facility] [address] [place] [address] Dr. Sarmad Patino FK506 (TACROLIMUS) WHOLE BLO ODon 05-13-2022 Tacrolimus (FK506), Blood 4.1 ng/mL Normal 2.0-20.0 [facility] Comment on above: Result Comment: Trou gh (immediately following transplant) 15.0 . Trough (steady state, 2 weeks or more after transplant): 3.0 - 8.0 . Performed by LC-MS/MS technology. Performed By: #### U JUVE, LIPID, MG, CMP, DBIL, PHOS #### [facility] [address] [place] [address] Dr. Sarmad Patino BILIRUBIN CONJUGATED (DIRECT )on 05-10-2022 BILI, CONJUGATED 0.1 mg/dL Normal 0.0-0.2 [facility] Comment on above: Performed By: #### D DAVIDSON, MG, PHOS, CMP, LIPID, URIC #### [facility] [address] [place] [address] Dr. Sarmad Patino GLYCOHEMOGLOBIN A1Con 2022 ADA RECOMMENDATION SEE BELOW Normal [facility] Comment on above: Result Comment: ADA RECOMMENDED LIMIT 4.0 - 6.0 ADA THERAPEUTIC TARGET < 7.0 ACTION SUGGESTED > 7.0 Performed By: #### D DAVIDSON, MG, PHOS, CMP, LIPID, URIC #### [facility] [address] [address] [address] Sarmad Patino Glucose [Mass/Vol] 108 mg/dL Normal [facility] Comment on above: Performed By: #### D DAVIDSON, MG, PHOS, CMP, LIPID, URIC #### [facility] [address] [address] [address] Sarmad Patino HbA1c (Bld) [Mass fraction] 5.4 % Normal 4.5-6.2 [facility] Comment on above: Performed By: #### D DAVIDSON, MG, PHOS, CMP, LIPID, URIC #### [facility] [address] [place] [address] Dr. Sarmad Patino MAGNESIUMon 05-10-2022 Magnesium [Mass/Vol] 1.9 mg/dL Normal 1.8-2.4 [facility] Comment on above: Performed By: #### U JUVE, LIPID, MG, CMP, DBIL, PHOS #### [facility] [address] [address] [address] Sarmad Patino PROF 14(COMP METB)on 023 Albumin [Mass/Vol] 3.9 g/dL Normal 3.4-5.0 [facility] Comment on above: Performed By: #### D DAVIDSON, MG, PHOS, CMP, LIPID, URIC #### [facility] [address] [place] [address] Dr. Sarmad Patino Albumin/Globulin [Mass ratio] 1.2 {ratio} Normal [facility] Comment on above: Performed By: #### D DAVIDSON, MG, PHOS, CMP, LIPID, URIC #### [facility] [address] [place] [address] Dr. Sarmad Patino ALP [Catalytic activity/Vol] 114 U/L Normal 46-116 [facility] Comment on above: Performed By: #### D DAVIDSON, MG, PHOS, CMP, LIPID, URIC #### [facility] [address] [address] [address] Sarmad Patino ALT [Catalytic activity/Vol] 18 U/L Normal 14-59 [facility] Comment on above: Performed By: #### D DAVIDSON, MG, PHOS, CMP, LIPID, URIC #### [facility] [address] [address] [address] Sarmad Patino Anion gap [Moles/Vol] 15.9 mmol/L Normal [facility] Comment on above: Performed By: #### D DAVIDSON, MG, PHOS, CMP, LIPID, URIC #### [facility] [address] [address] [address] Sarmad Patino AST [Catalytic activity/Vol] 17 U/L Normal 15-37 [facility] Comment on above: Performed By: #### D DAVIDSON, MG, PHOS, CMP, LIPID, URIC #### [facility] [address] [address] [address] Sarmad Patino Bilirubin [Mass/Vol] 0.4 mg/dL Normal 0.2-1.0 [facility] Comment on above: Performed By: #### D DAVIDSON, MG, PHOS, CMP, LIPID, URIC #### [facility] [address] [address] [address] Sarmad Patino Calcium [Mass/Vol] 9.8 mg/dL Normal 8.5-10.1 [facility] Comment on above: Performed By: #### D DAVIDSON, MG, PHOS, CMP, LIPID, URIC #### [facility] [address] [address] [address] Sarmad Patino Chloride [Moles/Vol] 103 mmol/L Normal 98-107 [facility] Comment on above: Performed By: #### D DAVIDSON, MG, PHOS, CMP, LIPID, URIC #### [facility] [address] [address] [address] Sarmad Patino CO2 [Moles/Vol] 29.2 mmol/L Normal 21.0-32.0 [facility] Comment on above: Performed By: #### D DAVIDSON, MG, PHOS, CMP, LIPID, URIC #### [facility] [address] [address] [address] Sarmad Patino Creatinine [Mass/Vol] 0.74 mg/dL Normal 0.55-1.02 [facility] Comment on above: Performed By: #### D DAVIDSON, MG, PHOS, CMP, LIPID, URIC #### [facility] [address] [address] [address] Sarmad Patino EGFR-AF LATVIAN >60 Normal >=60 [facility] Comment on above: Performed By: #### D DAVIDSON, MG, PHOS, CMP, LIPID, URIC #### [facility] [address] [place] [address] Dr. Sarmad Patino EGFR-NON AF LATVIAN >60 Normal >=60 [facility] Comment on above: Performed By: #### D DAVIDSON, MG, PHOS, CMP, LIPID, URIC #### [facility] [address] [place] [address] Dr. Sarmad Patino Globulin (S) [Mass/Vol] 3.2 g/dL Normal [facility] Comment on above: Performed By: #### D DAVIDSON, MG, PHOS, CMP, LIPID, URIC #### [facility] [address] [place] [address] Dr. Sarmad Patino Glucose [Mass/Vol] 94 mg/dL Normal 74-106 [facility] Comment on above: Performed By: #### D DAVIDSON, MG, PHOS, CMP, LIPID, URIC #### [facility] [address] [place] [address] Dr. Sarmad Patino Potassium [Moles/Vol] 4.1 mmol/L Normal 3.5-5.1 [facility] Comment on above: Performed By: #### D DAVIDSON, MG, PHOS, CMP, LIPID, URIC #### [facility] [address] [place] [address] Dr. Sarmad Patino Protein [Mass/Vol] 7.1 g/dL Normal 6.4-8.2 [facility] Comment on above: Performed By: #### D DAVIDSON, MG, PHOS, CMP, LIPID, URIC #### [facility] [address] [address] [address] Sarmad Patino Sodium [Moles/Vol] 144 mmol/L Normal 136-145 [facility] Comment on above: Performed By: #### D DAVIDSON, MG, PHOS, CMP, LIPID, URIC #### [facility] [address] [address] [address] Sarmad Patino Urea nitrogen [Mass/Vol] 18.0 mg/dL Normal 7.0-18.0 [facility] Comment on above: Performed By: #### D DAVIDSON, MG, PHOS, CMP, LIPID, URIC #### [facility] [address] [address] [address] Sarmad Patino Urea nitrogen/Creatinine [Mass ratio] 24.3 mg/mg Normal [facility] Comment on above: Performed By: #### D DAVIDSON, MG, PHOS, CMP, LIPID, URIC #### [facility] [address] [place] [address] Dr. Sarmad Patino URIC ACID SERUMon 05-10-2022 Urate [Mass/Vol] 5.1 mg/dL Normal 2.6-6.0 [facility] Comment on above: Performed By: #### U JUVE, LIPID, MG, CMP, DBIL, PHOS #### [facility] [address] [place] [address] Dr. Sarmad Patino MYCOPHENOLIC ACIDon 04-17-19 23 Mycophenolic Acid 1.2 ug/mL Normal 1.0-3.5 [facility] Comment on above: Performed By: #### D DAVIDSON, MG, PHOS, CMP, LIPID, URIC #### [facility] [address] [place] [address] Dr. Sarmad Patino Mycophenolic Acid Glucuronide 37 ug/mL Normal 15-125 [facility] Comment on above: Result Comment: [facility] 's Reference Range: 35-100 mcg/mL. Performed By: #### D DAVIDSON, MG, PHOS, CMP, LIPID, URIC #### [facility] [address] [place] [address] Dr. Sarmad Patino FK506 (TACROLIMUS) WHOLE BLO ODon 04-10-2022 Tacrolimus (FK506), Blood 4.2 ng/mL Normal 2.0-20.0 [facility] Comment on above: Result Comment: Trou gh (immediately following transplant) 15.0 . Trough (steady state, 2 weeks or more after transplant): 3.0 - 8.0 . Performed by LC-MS/MS technology. Performed By: #### D DAVIDSON, MG, PHOS, CMP, LIPID, URIC #### [facility] [address] [place] [address] Dr. Sarmad Patino BILIRUBIN CONJUGATED (DIRECT )on 04-08-2022 BILI, CONJUGATED 0.1 mg/dL Normal 0.0-0.2 [facility] Comment on above: Performed By: #### U JUVE, LIPID, MG, CMP, DBIL, PHOS #### [facility] [address] [place] [address] Dr. Sarmad Patino CBC AUTO DIFFon 04-08-2022 BASO # 0.0 103/ul Normal 0.0-0.1 [facility] Comment on above: Performed By: #### D DAVIDSON, MG, PHOS, CMP, LIPID, URIC #### [facility] [address] [place] [address] Dr. Sarmad Patino Basophils/100 WBC (Bld) 0.3 % Normal 0.2-2.0 [facility] Comment on above: Performed By: #### D DAVIDSON, MG, PHOS, CMP, LIPID, URIC #### [facility] [address] [address] [address] Sarmad Patino EO # 0.1 103/ul Normal 0.0-0.7 [facility] Comment on above: Performed By: #### D DAVIDSON, MG, PHOS, CMP, LIPID, URIC #### [facility] [address] [address] [address] Sarmad Patino Eosinophils/100 WBC (Bld) 1.4 % Normal 0.9-7.0 [facility] Comment on above: Performed By: #### D DAVIDSON, MG, PHOS, CMP, LIPID, URIC #### [facility] [address] [place] [address] Dr. Sarmad Patino Erythrocyte distribution width (RBC) [Ratio] 15.8 % Critically high 11.0-15.0 [facility] Comment on above: Performed By: #### D DAVIDSON, MG, PHOS, CMP, LIPID, URIC #### [facility] [address] [place] [address] Dr. Sarmad Patino Hematocrit (Bld) [Volume fraction] 43.0 % Normal 36.0-48.0 [facility] Comment on above: Performed By: #### D DAVIDSON, MG, PHOS, CMP, LIPID, URIC #### [facility] [address] [place] [address] Dr. Sarmad Patino Hemoglobin (Bld) [Mass/Vol] 15.0 g/dL Normal 12.0-16.0 [facility] Comment on above: Performed By: #### D DAVIDSON, MG, PHOS, CMP, LIPID, URIC #### [facility] [address] [place] [address] Dr. Sarmad Patino IG # 0.01 10e3/ul Normal 0.00-0.03 [facility] Comment on above: Performed By: #### D DAVIDSON, MG, PHOS, CMP, LIPID, URIC #### [facility] [address] [place] [address] Dr. Sarmad Patino IG % 0.1 % Normal 0.0-0.5 [facility] Comment on above: Performed By: #### D DAVIDSON, MG, PHOS, CMP, LIPID, URIC #### [facility] [address] [place] [address] Dr. Sarmad Patino LYMPH # 1.3 103/ul Normal 1.2-3.8 [facility] Comment on above: Performed By: #### D DAVIDSON, MG, PHOS, CMP, LIPID, URIC #### [facility] [address] [place] [address] Dr. Sarmad Patino Lymphocytes/100 WBC (Bld) 18.3 % Critically low 20.5-60.0 [facility] Comment on above: Performed By: #### D DAVIDSON, MG, PHOS, CMP, LIPID, URIC #### [facility] [address] [place] [address] Dr. Sarmad Patino MANUAL DIFF REQ NO Normal [facility] Comment on above: Performed By: #### D DAVIDSON, MG, PHOS, CMP, LIPID, URIC #### [facility] [address] [place] [address] Dr. Sarmad Patino MCH (RBC) [Entitic mass] 29.7 pg Normal 26.7-34.0 [facility] Comment on above: Performed By: #### D DAVIDSON, MG, PHOS, CMP, LIPID, URIC #### [facility] [address] [place] [address] Dr. Sarmad Patino MCHC (RBC) [Mass/Vol] 34.9 g/dL Normal 29.9-35.2 [facility] Comment on above: Performed By: #### D DAVIDSON, MG, PHOS, CMP, LIPID, URIC #### [facility] [address] [place] [address] Dr. Sarmad Paitno MCV (RBC) [Entitic vol] 85.1 fL Normal 81.0-99.0 [facility] Comment on above: Performed By: #### D DAVIDSON, MG, PHOS, CMP, LIPID, URIC #### [facility] [address] [place] [address] Dr. Sarmad Patino MONO # 0.7 103/ul Normal 0.3-0.8 [facility] Comment on above: Performed By: #### D DAVIDSON, MG, PHOS, CMP, LIPID, URIC #### [facility] [address] [place] [address] Dr. Sarmad Patino Monocytes/100 WBC (Bld) 9.8 % Normal 1.7-12.0 [facility] Comment on above: Performed By: #### D DAVIDSON, MG, PHOS, CMP, LIPID, URIC #### [facility] [address] [place] [address] Dr. Sarmad Patino NEUT # 5.1 103/ul Normal 1.4-6.5 [facility] Comment on above: Performed By: #### D DAVIDSON, MG, PHOS, CMP, LIPID, URIC #### [facility] [address] [address] [address] Sarmad Patino Neutrophils/100 WBC (Bld) 70.1 % Normal 43.0-75.0 [facility] Comment on above: Performed By: #### D DAVIDSON, MG, PHOS, CMP, LIPID, URIC #### [facility] [address] [place] [address] Dr. Sarmad Patino Platelet mean volume (Bld) [Entitic vol] 10.4 fL Normal 9.5-13.5 [facility] Comment on above: Performed By: #### D DAVIDSON, MG, PHOS, CMP, LIPID, URIC #### [facility] [address] [address] [address] Sarmad Patino PLT 229 103/ul Normal 150-450 [facility] Comment on above: Performed By: #### D DAVIDSON, MG, PHOS, CMP, LIPID, URIC #### [facility] [address] [place] [address] Dr. Sarmad Patino RBC 5.05 106/ul Normal 4.20-5.40 [facility] Comment on above: Performed By: #### D DAVIDSON, MG, PHOS, CMP, LIPID, URIC #### [facility] [address] [place] [address] Dr. Sarmad Patino WBC 7.2 103/ul Normal 4.0-11.0 [facility] Comment on above: Performed By: #### D DAVIDSON, MG, PHOS, CMP, LIPID, URIC #### [facility] [address] [place] [address] Dr. Sarmad Patino LIPID PROFILEon 04-08-2022 CHOL-HDL RATIO NORM SEE BELOW Normal [facility] Comment on above: Result Comment: 3.3 - 4.4 LOW RISK 4.4 - 7.1 AVERAGE RISK 7.1 - 11.0 MODERATE RISK >11.0 HIGH RISK Performed By: #### U JUVE, LIPID, MG, CMP, DBIL, PHOS #### [facility] [address] [place] [address] Dr. Sarmad Patino Cholesterol [Mass/Vol] 134 mg/dL Normal <=200 [facility] Comment on above: Performed By: #### U JUVE, LIPID, MG, CMP, DBIL, PHOS #### [facility] [address] [address] [address] Sarmad Patino Cholesterol in HDL [Mass/Vol] 55 mg/dL Normal 40-60 [facility] Comment on above: Performed By: #### U JUVE, LIPID, MG, CMP, DBIL, PHOS #### [facility] [address] [address] [address] Sarmad Patino Cholesterol in LDL [Mass/Vol] 56.6 mg/dL Normal [facility] Comment on above: Performed By: #### U JUVE, LIPID, MG, CMP, DBIL, PHOS #### [facility] [address] [place] [address] Dr. Sarmad Patino Cholesterol.total/Cho lesterol in HDL [Mass ratio] 2.4 {ratio} Normal [facility] Comment on above: Performed By: #### U JUVE, LIPID, MG, CMP, DBIL, PHOS #### [facility] [address] [place] [address] Dr. Sarmad Patino HDL NORMAL > or = 60 mg/dl - LO W CARDIOVASCULAR RISK <40 mg/dl - HIGH CARDIOVASCULAR RISK Normal [facility] Comment on above: Performed By: #### U JUVE, LIPID, MG, CMP, DBIL, PHOS #### [facility] [address] [place] [address] Dr. Sarmad Patino LDL CALC NORMAL SEE BELOW Normal [facility] Comment on above: Result Comment: <100 mg/dl OPTIMAL 100 - 129 mg/dl NEAR OR ABOVE OPTIMAL 130 - 159 mg/dl BORDERLINE HIGH 160 - 189 mg/dl HIGH >190 mg/dl VERY HIGH Performed By: #### U JUVE, LIPID, MG, CMP, DBIL, PHOS #### [facility] [address] [place] [address] Dr. Sarmad Patino Triglyceride [Mass/Vol] 112 mg/dL Normal <=150 [facility] Comment on above: Performed By: #### U JUVE, LIPID, MG, CMP, DBIL, PHOS #### [facility] [address] [place], [place] [id number] Dr. Sarmad Patino VLDL CALC 22.4 mg/dL Normal [facility] Comment on above: Performed By: #### U JUVE, LIPID, MG, CMP, DBIL, PHOS #### [facility] [address] [place] [address] Dr. Sarmad Patino MAGNESIUMon 04-08-2022 Magnesium [Mass/Vol] 1.8 mg/dL Normal 1.8-2.4 [facility] Comment on above: Performed By: #### U JUVE, LIPID, MG, CMP, DBIL, PHOS #### [facility] [address] [place] [address] Dr. Sarmad Patino PHOSPHORUSon 04-08-2022 Phosphate [Mass/Vol] 3.9 mg/dL Normal 2.6-4.7 [facility] Comment on above: Performed By: #### U JUVE, LIPID, MG, CMP, DBIL, PHOS #### [facility] [address] [place] [address] Dr. Sarmad Patino PROF 14(COMP METB)on 023 Albumin [Mass/Vol] 4.0 g/dL Normal 3.4-5.0 [facility] Comment on above: Performed By: #### U JUVE, LIPID, MG, CMP, DBIL, PHOS #### [facility] [address] [place] [address] Dr. Sarmad Patino Albumin/Globulin [Mass ratio] 1.3 {ratio} Normal [facility] Comment on above: Performed By: #### U JUVE, LIPID, MG, CMP, DBIL, PHOS #### [facility] [address] [place] [address] Dr. Sarmad Patino ALP [Catalytic activity/Vol] 108 U/L Normal 46-116 [facility] Comment on above: Performed By: #### U JUVE, LIPID, MG, CMP, DBIL, PHOS #### [facility] [address] [place] [address] Dr. Sarmad Patino ALT [Catalytic activity/Vol] 15 U/L Normal 14-59 [facility] Comment on above: Performed By: #### U JUVE, LIPID, MG, CMP, DBIL, PHOS #### [facility] [address] [address] [address] Sarmad Patino Anion gap [Moles/Vol] 14.3 mmol/L Normal [facility] Comment on above: Performed By: #### U JUVE, LIPID, MG, CMP, DBIL, PHOS #### [facility] [address] [address] [address] Sarmad Patino AST [Catalytic activity/Vol] 15 U/L Normal 15-37 [facility] Comment on above: Performed By: #### U JUVE, LIPID, MG, CMP, DBIL, PHOS #### [facility] [address] [place] [address] Dr. Sarmad Patino Bilirubin [Mass/Vol] 0.5 mg/dL Normal 0.2-1.0 [facility] Comment on above: Performed By: #### U JUVE, LIPID, MG, CMP, DBIL, PHOS #### [facility] [address] [place] [address] Dr. Sarmad Patino Calcium [Mass/Vol] 9.7 mg/dL Normal 8.5-10.1 [facility] Comment on above: Performed By: #### U JUVE, LIPID, MG, CMP, DBIL, PHOS #### [facility] [address] [place] [address] Dr. Sarmad Patino Chloride [Moles/Vol] 105 mmol/L Normal 98-107 [facility] Comment on above: Performed By: #### U JUVE, LIPID, MG, CMP, DBIL, PHOS #### [facility] [address] [place] [address] Dr. Sarmad Patino CO2 [Moles/Vol] 26.6 mmol/L Normal 21.0-32.0 [facility] Comment on above: Performed By: #### U JUVE, LIPID, MG, CMP, DBIL, PHOS #### [facility] [address] [place] [address] Dr. Sarmad Patino Creatinine [Mass/Vol] 0.80 mg/dL Normal 0.55-1.02 [facility] Comment on above: Performed By: #### U JUVE, LIPID, MG, CMP, DBIL, PHOS #### [facility] [address] [address] [address] Sarmad Patino EGFR-AF LATVIAN >60 Normal >=60 [facility] Comment on above: Performed By: #### U JUVE, LIPID, MG, CMP, DBIL, PHOS #### [facility] [address] [place] [address] Dr. Sarmad Patino EGFR-NON AF LATVIAN >60 Normal >=60 [facility] Comment on above: Performed By: #### U JUVE, LIPID, MG, CMP, DBIL, PHOS #### [facility] [address] [place] [address] Dr. Sarmad Patino Globulin (S) [Mass/Vol] 3.0 g/dL Normal [facility] Comment on above: Performed By: #### U JUVE, LIPID, MG, CMP, DBIL, PHOS #### [facility] [address] [place] [address] Dr. Sarmad Patino Glucose [Mass/Vol] 99 mg/dL Normal 74-106 [facility] Comment on above: Performed By: #### U JUVE, LIPID, MG, CMP, DBIL, PHOS #### [facility] [address] [place] [address] Dr. Sarmad Patino Potassium [Moles/Vol] 3.9 mmol/L Normal 3.5-5.1 [facility] Comment on above: Performed By: #### U JUVE, LIPID, MG, CMP, DBIL, PHOS #### [facility] [address] [address] [address] Sarmad Patino Protein [Mass/Vol] 7.0 g/dL Normal 6.4-8.2 [facility] Comment on above: Performed By: #### U JUVE, LIPID, MG, CMP, DBIL, PHOS #### [facility] [address] [place] [address] Dr. Sarmad Patino Sodium [Moles/Vol] 142 mmol/L Normal 136-145 [facility] Comment on above: Performed By: #### U JUVE, LIPID, MG, CMP, DBIL, PHOS #### [facility] [address] [address] [address] Sarmad Patino Urea nitrogen [Mass/Vol] 14.0 mg/dL Normal 7.0-18.0 [facility] Comment on above: Performed By: #### U JUVE, LIPID, MG, CMP, DBIL, PHOS #### [facility] [address] [place] [address] Dr. Sarmad Patino Urea nitrogen/Creatinine [Mass ratio] 17.5 mg/mg Normal [facility] Comment on above: Performed By: #### U JUVE, LIPID, MG, CMP, DBIL, PHOS #### [facility] [address] [place] [address] Dr. Sarmad Patino URIC ACID SERUMon 04-08-2022 Urate [Mass/Vol] 5.2 mg/dL Normal 2.6-6.0 [facility] Comment on above: Performed By: #### U JUVE, LIPID, MG, CMP, DBIL, PHOS #### [facility] [address] [place] [address] Dr. Sarmad Patino BK VIRUS PCR QUANTon 022 BKV DNA QUANT PCR PLASMA Negative Normal Negative [facility] Comment on above: Result Comment: No B K DNA detected. . The linear range of the assay is 22 - 100,000,000 IU/mL. Performed By: #### D DAVIDSON, MG, PHOS, CMP, LIPID, URIC #### [facility] [address] [place] [address] Dr. Sarmad Patino Log10 BKV DNA Plasma Normal [facility] Comment on above: Performed By: #### D DAVIDSON, MG, PHOS, CMP, LIPID, URIC #### [facility] [address] [place] [address] Dr. Sarmad Patino FK506 (TACROLIMUS) WHOLE BLO ODon 03-13-2022 Tacrolimus (FK506), Blood 5.0 ng/mL Normal 2.0-20.0 [facility] Comment on above: Result Comment: Trou gh (immediately following transplant) 15.0 . Trough (steady state, 2 weeks or more after transplant): 3.0 - 8.0 . Performed by LC-MS/MS technology. Performed By: #### D DAVIDSON, MG, PHOS, CMP, LIPID, URIC #### [facility] [address] [place] [address] Dr. Sarmad Patino GLYCOHEMOGLOBIN A1Con 2021 ADA RECOMMENDATION SEE BELOW Normal [facility] Comment on above: Result Comment: ADA RECOMMENDED LIMIT 4.0 - 6.0 ADA THERAPEUTIC TARGET < 7.0 ACTION SUGGESTED > 7.0 Performed By: #### D DAVIDSON, MG, PHOS, CMP, LIPID, URIC #### [facility] [address] [address] [address] Sarmad Patino Glucose [Mass/Vol] 111 mg/dL Normal [facility] Comment on above: Performed By: #### D DAVIDSON, MG, PHOS, CMP, LIPID, URIC #### [facility] [address] [place] [address] Dr. Sarmad Patino HbA1c (Bld) [Mass fraction] 5.5 % Normal 4.5-6.2 [facility] Comment on above: Performed By: #### D DAVIDSON, MG, PHOS, CMP, LIPID, URIC #### [facility] [address] [place] [address] Dr. Sarmad Patino LIVER PROFILEon 03-11-2022 Albumin [Mass/Vol] 3.7 g/dL Normal 3.4-5.0 [facility] Comment on above: Performed By: #### D DAVIDSON, MG, PHOS, CMP, LIPID, URIC #### [facility] [address] [place] [address] Dr. Sarmad Patino Albumin/Globulin [Mass ratio] 1.1 {ratio} Normal [facility] Comment on above: Performed By: #### D DAVIDSON, MG, PHOS, CMP, LIPID, URIC #### [facility] [address] [place] [address] Dr. Sarmad Patino ALP [Catalytic activity/Vol] 124 U/L Critically high 46-116 [facility] Comment on above: Performed By: #### D DAVIDSON, MG, PHOS, CMP, LIPID, URIC #### [facility] [address] [address] [address] Sarmad Patino ALT [Catalytic activity/Vol] 17 U/L Normal 14-59 [facility] Comment on above: Performed By: #### D DAVIDSON, MG, PHOS, CMP, LIPID, URIC #### [facility] [address] [place] [address] Dr. Sarmad Patino AST [Catalytic activity/Vol] 16 U/L Normal 15-37 [facility] Comment on above: Performed By: #### D DAVIDSON, MG, PHOS, CMP, LIPID, URIC #### [facility] [address] [place] [address] Dr. Sarmad Patino BILI, CONJUGATED 0.2 mg/dL Normal 0.0-0.2 [facility] Comment on above: Performed By: #### D DAVIDSON, MG, PHOS, CMP, LIPID, URIC #### [facility] [address] [place] [address] Dr. Sarmad Patino Bilirubin [Mass/Vol] 0.6 mg/dL Normal 0.2-1.0 [facility] Comment on above: Performed By: #### D DAVIDSON, MG, PHOS, CMP, LIPID, URIC #### [facility] [address] [place] [address] Dr. Sarmad Patino Globulin (S) [Mass/Vol] 3.4 g/dL Normal [facility] Comment on above: Performed By: #### D DAVIDSON, MG, PHOS, CMP, LIPID, URIC #### [facility] [address] [place] [address] Dr. Sarmad Patino Protein [Mass/Vol] 7.1 g/dL Normal 6.4-8.2 [facility] Comment on above: Performed By: #### D DAVIDSON, MG, PHOS, CMP, LIPID, URIC #### [facility] [address] [place] [address] Dr. Sarmad Patino MAGNESIUMon 03-11-2022 Magnesium [Mass/Vol] 1.6 mg/dL Critically low 1.8-2.4 [facility] Comment on above: Performed By: #### D DAVIDSON, MG, PHOS, CMP, LIPID, URIC #### [facility] [address] [address] [address] Sarmad Patino PHOSPHORUSon 03-11-2022 Phosphate [Mass/Vol] 3.5 mg/dL Normal 2.6-4.7 [facility] Comment on above: Performed By: #### D DAVIDSON, MG, PHOS, CMP, LIPID, URIC #### [facility] [address] [address] [address] Sarmad Patino URIC ACID SERUMon 03-11-2022 Urate [Mass/Vol] 5.3 mg/dL Normal 2.6-6.0 [facility] Comment on above: Performed By: #### D DAVIDSON, MG, PHOS, CMP, LIPID, URIC #### [facility] [address] [place] [address] Dr. Sarmad Patino MYCOPHENOLIC ACIDon 02-19-20 22 Mycophenolic Acid 1.5 ug/mL Normal 1.0-3.5 [facility] Comment on above: Performed By: #### D DAVIDSON, MG, PHOS, CMP, LIPID, URIC #### [facility] [address] [place] [address] Dr. Sarmad Patino Mycophenolic Acid Glucuronide 32 ug/mL Normal 15-125 [facility] Comment on above: Result Comment: [facility] 's Reference Range: 35-100 mcg/mL. Performed By: #### D DAVIDSON, MG, PHOS, CMP, LIPID, URIC #### [facility] [address] [place] [address] Dr. Sarmad Patino BK VIRUS PCR QUANTon 022 BKV DNA QUANT PCR PLASMA Negative Normal Negative [facility] Comment on above: Result Comment: No B K DNA detected. . The linear range of the assay is 22 - 100,000,000 IU/mL. Performed By: #### D DAVIDSON, MG, PHOS, CMP, LIPID, URIC #### [facility] [address] [place] [address] Dr. Sarmad Patino Log10 BKV DNA Plasma Normal [facility] Comment on above: Performed By: #### D DAVIDSON, MG, PHOS, CMP, LIPID, URIC #### [facility] [address] [address] [address] Sarmad Patino FK506 (TACROLIMUS) WHOLE BLO ODon 02-11-2022 Tacrolimus (FK506), Blood 4.4 ng/mL Normal 2.0-20.0 [facility] Comment on above: Result Comment: Trou gh (immediately following transplant) 15.0 . Trough (steady state, 2 weeks or more after transplant): 3.0 - 8.0 . Performed by LC-MS/MS technology. Performed By: #### U JUVE, LIPID, MG, CMP, DBIL, PHOS #### [facility] [address] [place] [address] Dr. Sarmad Patino BILIRUBIN CONJUGATED (DIRECT )on 02-08-2022 BILI, CONJUGATED 0.1 mg/dL Normal 0.0-0.2 [facility] Comment on above: Performed By: #### D DAVIDSON, MG, PHOS, CMP, LIPID, URIC #### [facility] [address] [place] [address] Dr. Sarmad Patino CBC AUTO DIFFon 02-08-2022 BASO # 0.0 103/ul Normal 0.0-0.1 [facility] Comment on above: Performed By: #### D DAVIDSON, MG, PHOS, CMP, LIPID, URIC #### [facility] [address] [place] [address] Dr. Sarmad Patino Basophils/100 WBC (Bld) 0.3 % Normal 0.2-2.0 [facility] Comment on above: Performed By: #### D DAVIDSON, MG, PHOS, CMP, LIPID, URIC #### [facility] [address] [place] [address] Dr. Sarmad Patino EO # 0.1 103/ul Normal 0.0-0.7 [facility] Comment on above: Performed By: #### D DAVIDSON, MG, PHOS, CMP, LIPID, URIC #### [facility] [address] [place] [address] Dr. Sarmad Patino Eosinophils/100 WBC (Bld) 1.0 % Normal 0.9-7.0 [facility] Comment on above: Performed By: #### D DAVIDSON, MG, PHOS, CMP, LIPID, URIC #### [facility] [address] [place] [address] Dr. Sarmad Patino Erythrocyte distribution width (RBC) [Ratio] 15.9 % Critically high 11.0-15.0 [facility] Comment on above: Performed By: #### D DAVIDSON, MG, PHOS, CMP, LIPID, URIC #### [facility] [address] [place] [address] Dr. Sarmad Patino Hematocrit (Bld) [Volume fraction] 42.2 % Normal 36.0-48.0 [facility] Comment on above: Performed By: #### D DAVIDSON, MG, PHOS, CMP, LIPID, URIC #### [facility] [address] [place] [address] Dr. Sarmad Patino Hemoglobin (Bld) [Mass/Vol] 13.8 g/dL Normal 12.0-16.0 [facility] Comment on above: Performed By: #### D DAVIDSON, MG, PHOS, CMP, LIPID, URIC #### [facility] [address] [place] [address] Dr. Sarmad Patino IG # 0.10 10e3/ul Critically high 0.00-0.03 [facility] Comment on above: Performed By: #### D DAVIDSON, MG, PHOS, CMP, LIPID, URIC #### [facility] [address] [place] [address] Dr. Sarmad Patino IG % 1.1 % Critically high 0.0-0.5 [facility] Comment on above: Performed By: #### D DAVIDSON, MG, PHOS, CMP, LIPID, URIC #### [facility] [address] [place] [address] Dr. Sarmad Patino LYMPH # 1.2 103/ul Normal 1.2-3.8 [facility] Comment on above: Performed By: #### D DAVIDSON, MG, PHOS, CMP, LIPID, URIC #### [facility] [address] [place] [address] Dr. Sarmad Patino Lymphocytes/100 WBC (Bld) 12.6 % Critically low 20.5-60.0 [facility] Comment on above: Performed By: #### D DAVIDSON, MG, PHOS, CMP, LIPID, URIC #### [facility] [address] [place] [address] Dr. Sarmad Patino MANUAL DIFF REQ NO Normal [facility] Comment on above: Performed By: #### D DAVIDSON, MG, PHOS, CMP, LIPID, URIC #### [facility] [address] [place] [address] Dr. Sarmad Patino MCH (RBC) [Entitic mass] 28.3 pg Normal 26.7-34.0 [facility] Comment on above: Performed By: #### D DAVIDSON, MG, PHOS, CMP, LIPID, URIC #### [facility] [address] [place] [address] Dr. Sarmad Patino MCHC (RBC) [Mass/Vol] 32.7 g/dL Normal 29.9-35.2 [facility] Comment on above: Performed By: #### D DAVIDSON, MG, PHOS, CMP, LIPID, URIC #### [facility] [address] [place] [address] Dr. Sarmad Patino MCV (RBC) [Entitic vol] 86.7 fL Normal 81.0-99.0 [facility] Comment on above: Performed By: #### D DAVIDSON, MG, PHOS, CMP, LIPID, URIC #### [facility] [address] [place] [address] Dr. Sarmad Patino MONO # 1.0 103/ul Critically high 0.3-0.8 [facility] Comment on above: Performed By: #### D DAVIDSON, MG, PHOS, CMP, LIPID, URIC #### [facility] [address] [place] [address] Dr. Sarmad Patino Monocytes/100 WBC (Bld) 10.7 % Normal 1.7-12.0 [facility] Comment on above: Performed By: #### D DAVIDSON, MG, PHOS, CMP, LIPID, URIC #### [facility] [address] [place] [address] Dr. Sarmad Patino NEUT # 6.9 103/ul Critically high 1.4-6.5 [facility] Comment on above: Performed By: #### D DAVIDSON, MG, PHOS, CMP, LIPID, URIC #### [facility] [address] [address] [address] Sarmad Patino Neutrophils/100 WBC (Bld) 74.3 % Normal 43.0-75.0 [facility] Comment on above: Performed By: #### D DAVIDSON, MG, PHOS, CMP, LIPID, URIC #### [facility] [address] [address] [address] Sarmad Patino Platelet mean volume (Bld) [Entitic vol] 11.1 fL Normal 9.5-13.5 [facility] Comment on above: Performed By: #### D DAVIDSON, MG, PHOS, CMP, LIPID, URIC #### [facility] [address] [address] [address] Sarmad Patino PLT 307 103/ul Normal 150-450 [facility] Comment on above: Performed By: #### D DAVIDSON, MG, PHOS, CMP, LIPID, URIC #### [facility] [address] [address] [address] Sarmad Patino RBC 4.87 106/ul Normal 4.20-5.40 [facility] Comment on above: Performed By: #### D DAVIDSON, MG, PHOS, CMP, LIPID, URIC #### [facility] [address] [address] [address] Sarmad Patino WBC 9.3 103/ul Normal 4.0-11.0 [facility] Comment on above: Performed By: #### D DAVIDSON, MG, PHOS, CMP, LIPID, URIC #### [facility] [address] [address] [address] Sarmad Patino GLYCOHEMOGLOBIN A1Con 2021 ADA RECOMMENDATION SEE BELOW Normal [facility] Comment on above: Result Comment: ADA RECOMMENDED LIMIT 4.0 - 6.0 ADA THERAPEUTIC TARGET < 7.0 ACTION SUGGESTED > 7.0 Performed By: #### D DAVIDSON, MG, PHOS, CMP, LIPID, URIC #### [facility] [address] [address] [address] Sarmad Patino Glucose [Mass/Vol] 134 mg/dL Normal [facility] Comment on above: Performed By: #### D DAVIDSON, MG, PHOS, CMP, LIPID, URIC #### [facility] [address] [address] [address] Sarmad Patino HbA1c (Bld) [Mass fraction] 6.3 % Critically high 4.5-6.2 [facility] Comment on above: Performed By: #### D DAVIDSON, MG, PHOS, CMP, LIPID, URIC #### [facility] [address] [address] [address] Sarmad Patino LIPID PROFILEon 02-08-2022 CHOL-HDL RATIO NORM SEE BELOW Normal [facility] Comment on above: Result Comment: 3.3 - 4.4 LOW RISK 4.4 - 7.1 AVERAGE RISK 7.1 - 11.0 MODERATE RISK >11.0 HIGH RISK Performed By: #### D DAVIDSON, MG, PHOS, CMP, LIPID, URIC #### [facility] [address] [address] [address] Sarmad Patino Cholesterol [Mass/Vol] 180 mg/dL Normal <=200 [facility] Comment on above: Performed By: #### D DAVIDSON, MG, PHOS, CMP, LIPID, URIC #### [facility] [address] [address] [address] Sarmad Patino Cholesterol in HDL [Mass/Vol] 58 mg/dL Normal 40-60 [facility] Comment on above: Performed By: #### D DAVIDSON, MG, PHOS, CMP, LIPID, URIC #### [facility] [address] [address] [address] Sarmad Patino Cholesterol in LDL [Mass/Vol] 86.6 mg/dL Normal [facility] Comment on above: Performed By: #### D DAVIDSON, MG, PHOS, CMP, LIPID, URIC #### [facility] [address] [address] [address] Sarmad Patino Cholesterol.total/Cho lesterol in HDL [Mass ratio] 3.1 {ratio} Normal [facility] Comment on above: Performed By: #### D DAVIDSON, MG, PHOS, CMP, LIPID, URIC #### [facility] [address] [address] [address] Sarmad Patino HDL NORMAL > or = 60 mg/dl - LO W CARDIOVASCULAR RISK <40 mg/dl - HIGH CARDIOVASCULAR RISK Normal [facility] Comment on above: Performed By: #### D DAVIDSON, MG, PHOS, CMP, LIPID, URIC #### [facility] [address] [address] [address] Sarmad Patino LDL CALC NORMAL SEE BELOW Normal [facility] Comment on above: Result Comment: <100 mg/dl OPTIMAL 100 - 129 mg/dl NEAR OR ABOVE OPTIMAL 130 - 159 mg/dl BORDERLINE HIGH 160 - 189 mg/dl HIGH >190 mg/dl VERY HIGH Performed By: #### D DAVIDSON, MG, PHOS, CMP, LIPID, URIC #### [facility] [address] [address] [address] Sarmad Patino Triglyceride [Mass/Vol] 177 mg/dL Critically high <=150 [facility] Comment on above: Performed By: #### D DAVIDSON, MG, PHOS, CMP, LIPID, URIC #### [facility] [address] [address] [address] Sarmad Patino VLDL CALC 35.4 mg/dL Normal [facility] Comment on above: Performed By: #### D DAVIDSON, MG, PHOS, CMP, LIPID, URIC #### [facility] [address] [address] [address] Sarmad Patino MAGNESIUMon 02-08-2022 Magnesium [Mass/Vol] 1.8 mg/dL Normal 1.8-2.4 [facility] Comment on above: Performed By: #### D DAVIDSON, MG, PHOS, CMP, LIPID, URIC #### [facility] [address] [place] [address] Dr. Sarmad Ptaino PHOSPHORUSon 02-08-2022 Phosphate [Mass/Vol] 3.3 mg/dL Normal 2.6-4.7 [facility] Comment on above: Performed By: #### D DAVIDSON, MG, PHOS, CMP, LIPID, URIC #### [facility] [address] [address] [address] Sarmad Patino PROF 14(COMP METB)on 022 Albumin [Mass/Vol] 3.8 g/dL Normal 3.4-5.0 [facility] Comment on above: Performed By: #### D DAVIDSON, MG, PHOS, CMP, LIPID, URIC #### [facility] [address] [address] [address] Sarmad Patino Albumin/Globulin [Mass ratio] 1.3 {ratio} Normal [facility] Comment on above: Performed By: #### D DAVIDSON, MG, PHOS, CMP, LIPID, URIC #### [facility] [address] [place] [address] Dr. Sarmad Patino ALP [Catalytic activity/Vol] 144 U/L Critically high 46-116 [facility] Comment on above: Performed By: #### D DAVIDSON, MG, PHOS, CMP, LIPID, URIC #### [facility] [address] [place] [address] Dr. Sarmad Patino ALT [Catalytic activity/Vol] 24 U/L Normal 14-59 [facility] Comment on above: Performed By: #### D DAVIDSON, MG, PHOS, CMP, LIPID, URIC #### [facility] [address] [place] [address] Dr. Sarmad Patino Anion gap [Moles/Vol] 13.7 mmol/L Normal [facility] Comment on above: Performed By: #### D DAVIDSON, MG, PHOS, CMP, LIPID, URIC #### [facility] [address] [place] [address] Dr. Sarmad Patino AST [Catalytic activity/Vol] 19 U/L Normal 15-37 [facility] Comment on above: Performed By: #### D DAVIDSON, MG, PHOS, CMP, LIPID, URIC #### [facility] [address] [place] [address] Dr. Sarmad Patino Bilirubin [Mass/Vol] 0.5 mg/dL Normal 0.2-1.0 [facility] Comment on above: Performed By: #### D DAVIDSON, MG, PHOS, CMP, LIPID, URIC #### [facility] [address] [address] [address] Sarmad Patino Calcium [Mass/Vol] 9.6 mg/dL Normal 8.5-10.1 [facility] Comment on above: Performed By: #### D DAVIDSON, MG, PHOS, CMP, LIPID, URIC #### [facility] [address] [address] [address] Sarmad Patino Chloride [Moles/Vol] 103 mmol/L Normal 98-107 [facility] Comment on above: Performed By: #### D DAVIDSON, MG, PHOS, CMP, LIPID, URIC #### [facility] [address] [place] [address] Dr. Sarmad Patino CO2 [Moles/Vol] 26.6 mmol/L Normal 21.0-32.0 [facility] Comment on above: Performed By: #### D DAVIDSON, MG, PHOS, CMP, LIPID, URIC #### [facility] [address] [address] [address] Sarmad Patino Creatinine [Mass/Vol] 0.75 mg/dL Normal 0.55-1.02 [facility] Comment on above: Performed By: #### D DAVIDSON, MG, PHOS, CMP, LIPID, URIC #### [facility] [address] [place] [address] Dr. Sarmad Patino EGFR-AF LATVIAN >60 Normal >=60 [facility] Comment on above: Performed By: #### D DAVIDSON, MG, PHOS, CMP, LIPID, URIC #### [facility] [address] [place] [address] Dr. Sarmad Patino EGFR-NON AF LATVIAN >60 Normal >=60 [facility] Comment on above: Performed By: #### D DAVIDSON, MG, PHOS, CMP, LIPID, URIC #### [facility] [address] [address] [address] Sarmad Patino Globulin (S) [Mass/Vol] 3.0 g/dL Normal [facility] Comment on above: Performed By: #### D DAVIDSON, MG, PHOS, CMP, LIPID, URIC #### [facility] [address] [address] [address] Sarmad Patino Glucose [Mass/Vol] 99 mg/dL Normal 74-106 [facility] Comment on above: Performed By: #### D DAVIDSON, MG, PHOS, CMP, LIPID, URIC #### [facility] [address] [address] [address] Sarmad Patino Potassium [Moles/Vol] 4.3 mmol/L Normal 3.5-5.1 [facility] Comment on above: Performed By: #### D DAVIDSON, MG, PHOS, CMP, LIPID, URIC #### [facility] [address] [place] [address] Dr. Sarmad Patino Protein [Mass/Vol] 6.8 g/dL Normal 6.4-8.2 [facility] Comment on above: Performed By: #### D DAVIDSON, MG, PHOS, CMP, LIPID, URIC #### [facility] [address] [place] [address] Dr. Sarmad Patino Sodium [Moles/Vol] 139 mmol/L Normal 136-145 [facility] Comment on above: Performed By: #### D DAVIDSON, MG, PHOS, CMP, LIPID, URIC #### [facility] [address] [place] [address] Dr. Sarmad Patino Urea nitrogen [Mass/Vol] 16.0 mg/dL Normal 7.0-18.0 [facility] Comment on above: Performed By: #### D DAVIDSON, MG, PHOS, CMP, LIPID, URIC #### [facility] [address] [address] [address] Sarmad Patino Urea nitrogen/Creatinine [Mass ratio] 21.3 mg/mg Normal [facility] Comment on above: Performed By: #### D DAVIDSON, MG, PHOS, CMP, LIPID, URIC #### [facility] [address] [place] [address] Dr. Sarmad Patino URIC ACID SERUMon 02-08-2022 Urate [Mass/Vol] 5.4 mg/dL Normal 2.6-6.0 [facility] Comment on above: Performed By: #### D DAVIDSON, MG, PHOS, CMP, LIPID, URIC #### [facility] [address] [place] [address] Dr. Sarmad Patino BK VIRUS PCR QUANTon 022 BKV DNA QUANT PCR PLASMA 27 IU/mL Normal Negative [facility] Comment on above: Result Comment: The linear range of the assay is 22 - 100,000,000 IU/mL. Performed By: #### D DAVIDSON, MG, PHOS, CMP, LIPID, URIC #### [facility] [address] [address] [address] Sarmad Patino Log10 BKV DNA Plasma 1.431 log10 IU/mL Normal [facility] Comment on above: Performed By: #### D DAVIDSON, MG, PHOS, CMP, LIPID, URIC #### [facility] [address] [place] [address] Dr. Sarmad Patino FK506 (TACROLIMUS) WHOLE BLO ODon 01-30-2022 Tacrolimus (FK506), Blood 6.5 ng/mL Normal 2.0-20.0 [facility] Comment on above: Result Comment: Trou gh (immediately following transplant) 15.0 . Trough (steady state, 2 weeks or more after transplant): 3.0 - 8.0 . Performed by LC-MS/MS technology. Performed By: #### D DAVIDSON, MG, PHOS, CMP, LIPID, URIC #### [facility] [address] [place] [address] Dr. Sarmad Patino RAPAMUNE(SIROLIMUS)on 2021 Rapamune(Sirolimus), whole blood 9.9 ng/mL Normal 3.0-20.0 [facility] Comment on above: Result Comment: Perf ormed by LC/MS-MS technology . This test was developed and its performance characteristics determined by [employer]. It has not been cleared or approved by the Food and Drug Administration. Performed By: #### D DAVIDSON, MG, PHOS, CMP, LIPID, URIC #### [facility] [address] [place] [address] Dr. Sarmad Patino BILIRUBIN CONJUGATED (DIRECT )on 01-28-2022 BILI, CONJUGATED 0.1 mg/dL Normal 0.0-0.2 [facility] Comment on above: Performed By: #### D DAVIDSON, MG, PHOS, CMP, LIPID, URIC #### [facility] [address] [place] [address] Dr. Sarmad Patino CBC AUTO DIFFon 01-28-2022 BASO # 0.0 103/ul Normal 0.0-0.1 [facility] Comment on above: Performed By: #### D DAVIDSON, MG, PHOS, CMP, LIPID, URIC #### [facility] [address] [place] [address] Dr. Sarmad Patino Basophils/100 WBC (Bld) 0.3 % Normal 0.2-2.0 [facility] Comment on above: Performed By: #### D DAVIDSON, MG, PHOS, CMP, LIPID, URIC #### [facility] [address] [place] [address] Dr. Sarmad Patino EO # 0.2 103/ul Normal 0.0-0.7 [facility] Comment on above: Performed By: #### D DAVIDSON, MG, PHOS, CMP, LIPID, URIC #### [facility] [address] [place] [address] Dr. Sarmad Patino Eosinophils/100 WBC (Bld) 3.1 % Normal 0.9-7.0 [facility] Comment on above: Performed By: #### D DAVIDSON, MG, PHOS, CMP, LIPID, URIC #### [facility] [address] [place] [address] Dr. Sarmad Patino Erythrocyte distribution width (RBC) [Ratio] 15.4 % Critically high 11.0-15.0 [facility] Comment on above: Performed By: #### D DAVIDSON, MG, PHOS, CMP, LIPID, URIC #### [facility] [address] [place] [address] Dr. Sarmad Patino Hematocrit (Bld) [Volume fraction] 42.6 % Normal 36.0-48.0 [facility] Comment on above: Performed By: #### D DAVIDSON, MG, PHOS, CMP, LIPID, URIC #### [facility] [address] [address] [address] Sarmad Patino Hemoglobin (Bld) [Mass/Vol] 14.0 g/dL Normal 12.0-16.0 [facility] Comment on above: Performed By: #### D DAVIDSON, MG, PHOS, CMP, LIPID, URIC #### [facility] [address] [place] [address] Dr. Sarmad Patino IG # 0.05 10e3/ul Critically high 0.00-0.03 [facility] Comment on above: Performed By: #### D DAVIDSON, MG, PHOS, CMP, LIPID, URIC #### [facility] [address] [place] [address] Dr. Sarmad Patino IG % 0.7 % Critically high 0.0-0.5 [facility] Comment on above: Performed By: #### D DAVIDSON, MG, PHOS, CMP, LIPID, URIC #### [facility] [address] [place] [address] Dr. Sarmad Patino LYMPH # 1.1 103/ul Critically low 1.2-3.8 [facility] Comment on above: Performed By: #### D DAVIDSON, MG, PHOS, CMP, LIPID, URIC #### [facility] [address] [place] [address] Dr. Sarmad Patino Lymphocytes/100 WBC (Bld) 15.8 % Critically low 20.5-60.0 [facility] Comment on above: Performed By: #### D DAVIDSON, MG, PHOS, CMP, LIPID, URIC #### [facility] [address] [place] [address] Dr. Sarmad Patino MANUAL DIFF REQ NO Normal [facility] Comment on above: Performed By: #### D DAVIDSON, MG, PHOS, CMP, LIPID, URIC #### [facility] [address] [place] [address] Dr. Sarmad Patino MCH (RBC) [Entitic mass] 28.3 pg Normal 26.7-34.0 [facility] Comment on above: Performed By: #### D DAVIDSON, MG, PHOS, CMP, LIPID, URIC #### [facility] [address] [place] [address] Dr. Sarmad Patino MCHC (RBC) [Mass/Vol] 32.9 g/dL Normal 29.9-35.2 [facility] Comment on above: Performed By: #### D DAVIDSON, MG, PHOS, CMP, LIPID, URIC #### [facility] [address] [place] [address] Dr. Sarmad Patino MCV (RBC) [Entitic vol] 86.2 fL Normal 81.0-99.0 [facility] Comment on above: Performed By: #### D DAVIDSON, MG, PHOS, CMP, LIPID, URIC #### [facility] [address] [place] [address] Dr. Sarmad Patino MONO # 0.8 103/ul Normal 0.3-0.8 [facility] Comment on above: Performed By: #### D DAVIDSON, MG, PHOS, CMP, LIPID, URIC #### [facility] [address] [place] [address] Dr. Sarmad Patino Monocytes/100 WBC (Bld) 11.0 % Normal 1.7-12.0 [facility] Comment on above: Performed By: #### D DAVIDSON, MG, PHOS, CMP, LIPID, URIC #### [facility] [address] [place] [address] Dr. Sarmad Patino NEUT # 4.8 103/ul Normal 1.4-6.5 [facility] Comment on above: Performed By: #### D DAVIDSON, MG, PHOS, CMP, LIPID, URIC #### [facility] [address] [place] [address] Dr. Sarmad Patino Neutrophils/100 WBC (Bld) 69.1 % Normal 43.0-75.0 [facility] Comment on above: Performed By: #### D DAVIDSON, MG, PHOS, CMP, LIPID, URIC #### [facility] [address] [place] [address] Dr. Sarmad Patino Platelet mean volume (Bld) [Entitic vol] 10.8 fL Normal 9.5-13.5 [facility] Comment on above: Performed By: #### D DAVIDSON, MG, PHOS, CMP, LIPID, URIC #### [facility] [address] [address] [address] Sarmad Patino PLT 208 103/ul Normal 150-450 [facility] Comment on above: Performed By: #### D DAVIDSON, MG, PHOS, CMP, LIPID, URIC #### [facility] [address] [address] [address] Sarmad Patino RBC 4.94 106/ul Normal 4.20-5.40 [facility] Comment on above: Performed By: #### D DAVIDSON, MG, PHOS, CMP, LIPID, URIC #### [facility] [address] [address] [address] Sarmad Patino WBC 7.0 103/ul Normal 4.0-11.0 [facility] Comment on above: Performed By: #### D DAVIDSON, MG, PHOS, CMP, LIPID, URIC #### [facility] [address] [address] [address] Sarmad Patino GLYCOHEMOGLOBIN A1Con 2021 ADA RECOMMENDATION SEE BELOW Normal [facility] Comment on above: Result Comment: ADA RECOMMENDED LIMIT 4.0 - 6.0 ADA THERAPEUTIC TARGET < 7.0 ACTION SUGGESTED > 7.0 Performed By: #### D DAVIDSON, MG, PHOS, CMP, LIPID, URIC #### [facility] [address] [address] [address] Sarmad Patino Glucose [Mass/Vol] 137 mg/dL Normal [facility] Comment on above: Performed By: #### D DAVIDSON, MG, PHOS, CMP, LIPID, URIC #### [facility] [address] [address] [address] Sarmad Patino HbA1c (Bld) [Mass fraction] 6.4 % Critically high 4.5-6.2 [facility] Comment on above: Performed By: #### D DAVIDSON, MG, PHOS, CMP, LIPID, URIC #### [facility] [address] [place] [address] Dr. Sarmad Patino LIPID PROFILEon 10-31-2022 CHOL-HDL RATIO NORM SEE BELOW Normal [facility] Comment on above: Result Comment: 3.3 - 4.4 LOW RISK 4.4 - 7.1 AVERAGE RISK 7.1 - 11.0 MODERATE RISK >11.0 HIGH RISK Performed By: #### D DAVIDSON, MG, PHOS, CMP, LIPID, URIC #### [facility] [address] [address] [address] Sarmad Patino Cholesterol [Mass/Vol] 209 mg/dL Critically high <=200 [facility] Comment on above: Performed By: #### D DAVIDSON, MG, PHOS, CMP, LIPID, URIC #### [facility] [address] [address] [address] Sarmad Patino Cholesterol in HDL [Mass/Vol] 59 mg/dL Normal 40-60 [facility] Comment on above: Performed By: #### D DAVIDSON, MG, PHOS, CMP, LIPID, URIC #### [facility] [address] [address] [address] Sarmad Patino Cholesterol in LDL [Mass/Vol] 100.4 mg/dL Normal [facility] Comment on above: Performed By: #### D DAVIDSON, MG, PHOS, CMP, LIPID, URIC #### [facility] [address] [address] [address] Saramd Patino Cholesterol.total/Cho lesterol in HDL [Mass ratio] 3.5 {ratio} Normal [facility] Comment on above: Performed By: #### D DAVIDSON, MG, PHOS, CMP, LIPID, URIC #### [facility] [address] [address] [address] Sarmad Patino HDL NORMAL > or = 60 mg/dl - LO W CARDIOVASCULAR RISK <40 mg/dl - HIGH CARDIOVASCULAR RISK Normal [facility] Comment on above: Performed By: #### D DAVIDSON, MG, PHOS, CMP, LIPID, URIC #### [facility] [address] [place] [address] Dr. Sarmad Patino LDL CALC NORMAL SEE BELOW Normal [facility] Comment on above: Result Comment: <100 mg/dl OPTIMAL 100 - 129 mg/dl NEAR OR ABOVE OPTIMAL 130 - 159 mg/dl BORDERLINE HIGH 160 - 189 mg/dl HIGH >190 mg/dl VERY HIGH Performed By: #### D DAVIDSON, MG, PHOS, CMP, LIPID, URIC #### [facility] [address] [place] [address] Dr. Sarmad Patnio Triglyceride [Mass/Vol] 248 mg/dL Critically high <=150 [facility] Comment on above: Performed By: #### D DAVIDSON, MG, PHOS, CMP, LIPID, URIC #### [facility] [address] [address] [address] Sarmad Patino VLDL CALC 49.6 mg/dL Normal [facility] Comment on above: Performed By: #### D DAVIDSON, MG, PHOS, CMP, LIPID, URIC #### [facility] [address] [place] [address] Dr. Sarmad Patino MAGNESIUMon 01-28-2022 Magnesium [Mass/Vol] 1.6 mg/dL Critically low 1.8-2.4 [facility] Comment on above: Performed By: #### D DAVIDSON, MG, PHOS, CMP, LIPID, URIC #### [facility] [address] [place] [address] Dr. Sarmad Patino PHOSPHORUSon 01-28-2022 Phosphate [Mass/Vol] 2.7 mg/dL Normal 2.6-4.7 [facility] Comment on above: Performed By: #### D DAVIDSON, MG, PHOS, CMP, LIPID, URIC #### [facility] [address] [place] [address] Dr. Sarmad Patino PROF 14(COMP METB)on 022 Albumin [Mass/Vol] 3.3 g/dL Critically low 3.4-5.0 [facility] Comment on above: Performed By: #### D DAVIDSON, MG, PHOS, CMP, LIPID, URIC #### [facility] [address] [place] [address] Dr. Sarmad aPtino Albumin/Globulin [Mass ratio] 0.9 {ratio} Normal [facility] Comment on above: Performed By: #### D DAVIDSON, MG, PHOS, CMP, LIPID, URIC #### [facility] [address] [address] [address] Sarmad Patino ALP [Catalytic activity/Vol] 124 U/L Critically high 46-116 [facility] Comment on above: Performed By: #### D DAVIDSON, MG, PHOS, CMP, LIPID, URIC #### [facility] [address] [place] [address] Dr. Sarmad Patino ALT [Catalytic activity/Vol] 28 U/L Normal 14-59 [facility] Comment on above: Performed By: #### D DAVIDSON, MG, PHOS, CMP, LIPID, URIC #### [facility] [address] [address] [address] Sarmad Patino Anion gap [Moles/Vol] 12.0 mmol/L Normal [facility] Comment on above: Performed By: #### D DAVIDSON, MG, PHOS, CMP, LIPID, URIC #### [facility] [address] [place] [address] Dr. Sarmad Patino AST [Catalytic activity/Vol] 20 U/L Normal 15-37 [facility] Comment on above: Performed By: #### D DAVIDSON, MG, PHOS, CMP, LIPID, URIC #### [facility] [address] [place] [address] Dr. Sarmad Patino Bilirubin [Mass/Vol] 0.5 mg/dL Normal 0.2-1.0 [facility] Comment on above: Performed By: #### D DAVIDSON, MG, PHOS, CMP, LIPID, URIC #### [facility] [address] [place] [address] Dr. Sarmad Patino Calcium [Mass/Vol] 9.1 mg/dL Normal 8.5-10.1 [facility] Comment on above: Performed By: #### D DAVIDSON, MG, PHOS, CMP, LIPID, URIC #### [facility] [address] [place] [address] Dr. Sarmad Patino Chloride [Moles/Vol] 104 mmol/L Normal 98-107 [facility] Comment on above: Performed By: #### D DAVIDSON, MG, PHOS, CMP, LIPID, URIC #### [facility] [address] [place] [address] Dr. Sarmad Patino CO2 [Moles/Vol] 25.7 mmol/L Normal 21.0-32.0 [facility] Comment on above: Performed By: #### D DAVIDSON, MG, PHOS, CMP, LIPID, URIC #### [facility] [address] [address] [address] Sarmad Patino Creatinine [Mass/Vol] 0.77 mg/dL Normal 0.55-1.02 [facility] Comment on above: Performed By: #### D DAVIDSON, MG, PHOS, CMP, LIPID, URIC #### [facility] [address] [place] [address] Dr. Sarmad Patino EGFR-AF LATVIAN >60 Normal >=60 [facility] Comment on above: Performed By: #### D DAVIDSON, MG, PHOS, CMP, LIPID, URIC #### [facility] [address] [place] [address] Dr. Sarmad Patino EGFR-NON AF LATVIAN >60 Normal >=60 [facility] Comment on above: Performed By: #### D DAVIDSON, MG, PHOS, CMP, LIPID, URIC #### [facility] [address] [address] [address] Sarmad Patino Globulin (S) [Mass/Vol] 3.7 g/dL Normal [facility] Comment on above: Performed By: #### D DAVIDSON, MG, PHOS, CMP, LIPID, URIC #### [facility] [address] [address] [address] Sarmad Patino Glucose [Mass/Vol] 108 mg/dL Critically high 74-106 [facility] Comment on above: Performed By: #### D DAVIDSON, MG, PHOS, CMP, LIPID, URIC #### [facility] [address] [address] [address] Sarmad Patino Potassium [Moles/Vol] 3.7 mmol/L Normal 3.5-5.1 [facility] Comment on above: Performed By: #### D DAVIDSON, MG, PHOS, CMP, LIPID, URIC #### [facility] [address] [place] [address] Dr. Sarmad Patino Protein [Mass/Vol] 7.0 g/dL Normal 6.4-8.2 [facility] Comment on above: Performed By: #### D DAVIDSON, MG, PHOS, CMP, LIPID, URIC #### [facility] [address] [address] [address] Sarmad Patino Sodium [Moles/Vol] 138 mmol/L Normal 136-145 [facility] Comment on above: Performed By: #### D DAVIDSON, MG, PHOS, CMP, LIPID, URIC #### [facility] [address] [address] [address] Sarmad Patino Urea nitrogen [Mass/Vol] 15.0 mg/dL Normal 7.0-18.0 [facility] Comment on above: Performed By: #### D DAVIDSON, MG, PHOS, CMP, LIPID, URIC #### [facility] [address] [address] [address] Sarmad Patino Urea nitrogen/Creatinine [Mass ratio] 19.5 mg/mg Normal [facility] Comment on above: Performed By: #### D DAVIDSON, MG, PHOS, CMP, LIPID, URIC #### [facility] [address] [address] [address] Saramd Patino URIC ACID SERUMon 01-28-2022 Urate [Mass/Vol] 4.3 mg/dL Normal 2.6-6.0 [facility] Comment on above: Performed By: #### D DAVIDSON, MG, PHOS, CMP, LIPID, URIC #### [facility] [address] [address] [address] Sarmad Patino Quick Strepon 01-12-2022 S. pyogenes Org specific cx Ql (Throat) Negative [facility] Other Quick Strep [facility] Other XR CHEST 1 Von 01-07-2022 XR [...] ARTEMIO BERNARD Date: 2022-01-07 15:00 Normal [facility] CBC W MANUAL DIFFon 01-04-20 22 ATYPICAL LYMPH # 1.40 103/ul Normal [facility] Comment on above: Performed By: #### D DAVIDSON, MG, PHOS, CMP, LIPID, URIC #### [facility] [address] [address] [address] Sarmad Patino ATYPICAL LYMPH % 10 % Normal [facility] Comment on above: Performed By: #### D DAVIDSON, MG, PHOS, CMP, LIPID, URIC #### [facility] [address] [address] [address] Sarmad Patino BAND # 0.6 103/ul Critically high 0.0-0.3 [facility] Comment on above: Performed By: #### D DAVIDSON, MG, PHOS, CMP, LIPID, URIC #### [facility] [address] [address] [address] Sarmad Patino BAND % 4 % Normal 0-5 [facility] Comment on above: Performed By: #### D DAVIDSON, MG, PHOS, CMP, LIPID, URIC #### [facility] [address] [address] [address] Sarmad Patino BASOM # 0.00 103/ul Normal 0.00-0.10 [facility] Comment on above: Performed By: #### D DAVIDSON, MG, PHOS, CMP, LIPID, URIC #### [facility] [address] [address] [address] Sarmad Patino BASOM % 0.0 % Critically low 0.2-2.0 [facility] [place] [facility] Comment on above: Performed By: #### D DAVIDSON, MG, PHOS, CMP, LIPID, URIC #### [facility] [address] [address] [address] Sarmad Patino BLAST # Normal [facility] Comment on above: Performed By: #### D DAVIDSON, MG, PHOS, CMP, LIPID, URIC #### [facility] [address] [address] [address] Sarmad Patino BLAST % Normal [facility] Comment on above: Performed By: #### D DAVIDSON, MG, PHOS, CMP, LIPID, URIC #### [facility] [address] [address] [address] Sarmad Patino CORRECTED WBC Normal 4.0-11.0 [facility] Comment on above: Performed By: #### D DAVIDSON, MG, PHOS, CMP, LIPID, URIC #### [facility] [address] [place] [address] Dr. Sarmad Patino EOS # 0.14 103/ul Normal 0.00-0.70 [facility] Comment on above: Performed By: #### D DAVIDSON, MG, PHOS, CMP, LIPID, URIC #### [facility] [address] [place] [address] Dr. Sarmad Patino EOS% 1.0 % Normal 0.9-7.0 [facility] Comment on above: Performed By: #### D DAVIDSON, MG, PHOS, CMP, LIPID, URIC #### [facility] [address] [address] [address] Sarmad Patino HCT 42.8 % Normal 36.0-48.0 [facility] Comment on above: Performed By: #### D DAVIDSON, MG, PHOS, CMP, LIPID, URIC #### [facility] [address] [place] [address] Dr. Sarmad Patino HGB 14.2 g/dl Normal 12.0-16.0 [facility] Comment on above: Performed By: #### D DAVIDSON, MG, PHOS, CMP, LIPID, URIC #### [facility] [address] [address] [address] Sarmad Patino LYMPHM # 0.00 103/ul Critically low 1.20-3.80 [facility] Comment on above: Performed By: #### D DAVIDSON, MG, PHOS, CMP, LIPID, URIC #### [facility] [address] [address] [address] Sarmad Patino LYMPHM% 0.0 % Critically low 20.5-60.0 [facility] [place] [facility] Comment on above: Performed By: #### D DAVIDSON, MG, PHOS, CMP, LIPID, URIC #### [facility] [address] [place] [address] Dr. Sarmad Patino MCH 28.8 pg Normal 26.7-34.0 [facility] Comment on above: Performed By: #### D DAVIDSON, MG, PHOS, CMP, LIPID, URIC #### [facility] [address] [place] [address] Dr. Sarmad Patino MCHC 33.2 g/dl Normal 29.9-35.2 [facility] Comment on above: Performed By: #### D DAVIDSON, MG, PHOS, CMP, LIPID, URIC #### [facility] [address] [place] [address] Dr. Sarmad Patino MCV 86.8 fL Normal 81.0-99.0 [facility] Comment on above: Performed By: #### D DAVIDSON, MG, PHOS, CMP, LIPID, URIC #### [facility] [address] [place] [address] Dr. Sarmad Patino METAMYELOCYTE # Normal [facility] Comment on above: Performed By: #### D DAVIDSON, MG, PHOS, CMP, LIPID, URIC #### [facility] [address] [place] [address] Dr. Sarmad Patino METAMYELOCYTE % Normal [facility] Comment on above: Performed By: #### D DAVIDSON, MG, PHOS, CMP, LIPID, URIC #### [facility] [address] [place] [address] Dr. Sarmad Patino MONOM# 0.84 103/ul Critically high 0.30-0.80 [facility] Comment on above: Performed By: #### D DAVIDSON, MG, PHOS, CMP, LIPID, URIC #### [facility] [address] [address] [address] Sarmad Patino MONOM% 6.0 % Normal 1.7-12.0 [facility] Comment on above: Performed By: #### D DAVIDSON, MG, PHOS, CMP, LIPID, URIC #### [facility] [address] [address] [address] Sarmad Patino MPV 11.5 fL Normal 9.5-13.5 [facility] Comment on above: Performed By: #### D DAVIDSON, MG, PHOS, CMP, LIPID, URIC #### [facility] [address] [address] [address] Sarmad Patino MYELOCYTE # 0.3 103/ul Normal [facility] Comment on above: Performed By: #### D DAVIDSON, MG, PHOS, CMP, LIPID, URIC #### [facility] [address] [place] [address] Dr. Sarmad Patino MYELOCYTE % 2 % Normal [facility] Comment on above: Performed By: #### D DAVIDSON, MG, PHOS, CMP, LIPID, URIC #### [facility] [address] [place] [address] Dr. Sarmad Patino NRBC Normal [facility] Comment on above: Performed By: #### D DAVIDSON, MG, PHOS, CMP, LIPID, URIC #### [facility] [address] [address] [address] Sarmad Patino PLT 180 103/ul Normal 150-450 [facility] Comment on above: Performed By: #### D DAVIDSON, MG, PHOS, CMP, LIPID, URIC #### [facility] [address] [address] [address] Sarmad Patino RBC 4.93 106/ul Normal 4.20-5.40 [facility] Comment on above: Performed By: #### D DAVIDSON, MG, PHOS, CMP, LIPID, URIC #### [facility] [address] [address] [address] Sarmad Patino RDW 13.9 % Normal 11.0-15.0 [facility] Comment on above: Performed By: #### D DAVIDSON, MG, PHOS, CMP, LIPID, URIC #### [facility] [address] [place], [place] [address] Dr. Sarmad Patino SEG # 10.78 103/ul Critically high 1.40-6.50 [facility] Comment on above: Performed By: #### D DAVIDSON, MG, PHOS, CMP, LIPID, URIC #### [facility] [address] [address] [address] Sarmad Patino SEG % 77.0 % Critically high 43.0-75.0 [facility] Comment on above: Performed By: #### D DAVIDSON, MG, PHOS, CMP, LIPID, URIC #### [facility] [address] [address] [address] Sarmad Patino WBC 14.0 103/ul Critically high 4.0-11.0 [facility] Comment on above: Performed By: #### D DAVIDSON, MG, PHOS, CMP, LIPID, URIC #### [facility] [address] [address] NECK ST W [...] middle ear cavities clear. Skull base intact. Pipe Buffer spaces normal. Parotid glands normal. Submandibular glands [...] HOPPER Date: 2022-01-03 10:40 Normal [facility]on SARS-CoV-2 (COVID-19) RNA MURALI+probe Ql (Unsp spec) Detected Critically abnormal NOT DETECTED [facility] Comment on above: Result Comment: This test is not yet approved or cleared by the [place] FDA. When there are no FDA-approved or cleared tests available, and other criteria are met, FDA can make tests available under an emergency access mechanism called an Emergency Use Authorization (EUA). The EUA for this test is supported by the [place] of Health and Human Service's declaration that [...] MG, PHOS, CMP, LIPID, URIC #### [facility] [address] [address] [address] Sarmad Patino GROUP A STREP CULTUREon S. pyogenes Ag Ql (Unsp spec) Culture Observations: Negative for Group A Streptococcus Normal [facility] Comment on above: Performed By: #### U JUVE, LIPID, MG, CMP, DBIL, PHOS #### [facility] [address] [place] [address] Dr. Sarmad Patino INFLUENZA A AND B AGon 01-03 INFLUENZA A AG Negative Normal NEGATIVE SEE COMMENT [facility] Comment on above: Performed By: #### D DAVIDSON, MG, PHOS, CMP, LIPID, URIC #### [facility] [address] [address] [address] Sarmad Patino INFLUENZA B AG Negative Normal NEGATIVE SEE COMMENT [facility] Comment on above: Performed By: #### D DAVIDSON, MG, PHOS, CMP, LIPID, URIC #### [facility] [address] [address] [address] Sarmad Patino INTERNAL CONTROLS Within Normal Limits Normal Wi thin Normal Limits [facility] Comment on above: Performed By: #### D DAVIDSON, MG, PHOS, CMP, LIPID, URIC #### [facility] [address] [address] [address] Sarmad Patino PROF 14(COMP METB)on 022 Albumin [Mass/Vol] 2.5 g/dL Critically low 3.4-5.0 [facility] Comment on above: Performed By: #### U JUVE, LIPID, MG, CMP, DBIL, PHOS #### [facility] [address] [address] [address] Sarmad Patino Albumin/Globulin [Mass ratio] 0.5 {ratio} Normal [facility] Comment on above: Performed By: #### U JUVE, LIPID, MG, CMP, DBIL, PHOS #### [facility] [address] [place] [address] Dr. Sarmad Patino ALP [Catalytic activity/Vol] 185 U/L Critically high 46-116 [facility] Comment on above: Performed By: #### U JUVE, LIPID, MG, CMP, DBIL, PHOS #### [facility] [address] [address] [address] Sarmad Patino ALT [Catalytic activity/Vol] 108 U/L Critically high 14-59 [facility] Comment on above: Performed By: #### U JUVE, LIPID, MG, CMP, DBIL, PHOS #### [facility] [address] [address] [address] Sarmad Patino Anion gap [Moles/Vol] 8.3 mmol/L Normal [facility] Comment on above: Performed By: #### U JUVE, LIPID, MG, CMP, DBIL, PHOS #### [facility] [address] [address] [address] Sarmad Patino AST [Catalytic activity/Vol] 59 U/L Critically high 15-37 [facility] Comment on above: Performed By: #### U JUVE, LIPID, MG, CMP, DBIL, PHOS #### [facility] [address] [address] [address] Sarmad Patino Bilirubin [Mass/Vol] 0.6 mg/dL Normal 0.2-1.0 [facility] Comment on above: Performed By: #### U JUVE, LIPID, MG, CMP, DBIL, PHOS #### [facility] [address] [address] [address] Sarmad Patino Calcium [Mass/Vol] 9.0 mg/dL Normal 8.5-10.1 [facility] Comment on above: Performed By: #### U JUVE, LIPID, MG, CMP, DBIL, PHOS #### [facility] [address] [address] [address] Sarmad Patino Chloride [Moles/Vol] 100 mmol/L Normal 98-107 [facility] Comment on above: Performed By: #### U JUVE, LIPID, MG, CMP, DBIL, PHOS #### [facility] [address] [place] [address] Dr. Sarmad Patino CO2 [Moles/Vol] 29.0 mmol/L Normal 21.0-32.0 [facility] Comment on above: Performed By: #### U JUVE, LIPID, MG, CMP, DBIL, PHOS #### [facility] [address] [address] [address] Sarmad Patino Creatinine [Mass/Vol] 1.05 mg/dL Critically high 0.55-1.02 [facility] Comment on above: Performed By: #### U JUVE, LIPID, MG, CMP, DBIL, PHOS #### [facility] [address] [place] [address] Dr. Sarmad Patino EGFR-AF LATVIAN >60 Normal >=60 [facility] Comment on above: Performed By: #### U JUVE, LIPID, MG, CMP, DBIL, PHOS #### [facility] [address] [address] [address] Sarmad Patino EGFR-NON AF LATVIAN 53 mL/min/1.73m2 Critically low >=60 [facility] Comment on above: Performed By: #### U JVUE, LIPID, MG, CMP, DBIL, PHOS #### [facility] [address] [place] [address] Dr. Sarmad Patino Globulin (S) [Mass/Vol] 4.6 g/dL Normal [facility] Comment on above: Performed By: #### U JUVE, LIPID, MG, CMP, DBIL, PHOS #### [facility] [address] [place] [address] Dr. Sarmad Patino Glucose [Mass/Vol] 154 mg/dL Critically high 74-106 T [facility] Comment on above: Performed By: #### U JUVE, LIPID, MG, CMP, DBIL, PHOS #### [facility] [address] [place] [address] Dr. Sarmad Patino Potassium [Moles/Vol] 3.3 mmol/L Critically low 3.5-5.1 [facility] Comment on above: Performed By: #### U JUVE, LIPID, MG, CMP, DBIL, PHOS #### [facility] [address] [place] [address] Dr. Sarmad Patino Protein [Mass/Vol] 7.1 g/dL Normal 6.4-8.2 [facility] Comment on above: Performed By: #### U JUVE, LIPID, MG, CMP, DBIL, PHOS #### [facility] [address] [place] [address] Dr. Sarmad Patino Sodium [Moles/Vol] 134 mmol/L Critically low 136-145 [facility] Comment on above: Performed By: #### U JUVE, LIPID, MG, CMP, DBIL, PHOS #### [facility] [address] [place] [address] Dr. Sarmad Patino Urea nitrogen [Mass/Vol] 24.0 mg/dL Critically high 7.0-18.0 [facility] Comment on above: Performed By: #### U JUVE, LIPID, MG, CMP, DBIL, PHOS #### [facility] [address] [address] [address] Sarmad Patino Urea nitrogen/Creatinine [Mass ratio] 22.9 mg/mg Normal [facility] Comment on above: Performed By: #### U JUVE, LIPID, MG, CMP, DBIL, PHOS #### [facility] [address] [address] [address] Sarmad Patino STREPT SCREENon 01-03-2022 STREP SCREEN A Negative Normal NEGATIVE [facility] Comment on above: Performed By: #### U JUVE, LIPID, MG, CMP, DBIL, PHOS #### [facility] [address] [address] [address] Sarmad Patino XR CHEST 2 Von [...] WHITESIDE Date: 2022-01-03 03:54 Normal [facility] Quick Strepon 12-28-2021 S. pyogenes Org specific cx Ql (Throat) Negative [facility] Other Quick Strep [facility] Other SARS-CoV-2 (COVID-19) RNA NA A+probe Ql (Resp)on 12-25-2021 SARS-CoV-2 (COVID-19) RNA MURALI+probe Ql (Unsp spec) Negative [facility] Other FK506 (TACROLIMUS) WHOLE BLO ODon 12-08-2021 Tacrolimus (FK506), Blood 6.6 ng/mL Normal 2.0-20.0 [facility] Comment on above: Result Comment: Trou gh (immediately following transplant) 15.0 . Trough (steady state, 2 weeks or more after transplant): 3.0 - 8.0 . Performed by LC-MS/MS technology. Performed By: #### D DAVIDSON, MG, PHOS, CMP, LIPID, URIC #### [facility] [address] [place] [address] Dr. Sarmad Patino RAPAMUNE(SIROLIMUS)on 2021 Rapamune(Sirolimus), whole blood 9.6 ng/mL Normal 3.0-20.0 [facility] Comment on above: Result Comment: Perf ormed by LC/MS-MS technology . This test was developed and its performance characteristics determined by [employer]. It has not been cleared or approved by the Food and Drug Administration. Performed By: #### D DAVIDSON, MG, PHOS, CMP, LIPID, URIC #### [facility] [address] [place] [address] Dr. Sarmad Patino BILIRUBIN CONJUGATED (DIRECT )on 12-05-2021 BILI, CONJUGATED 0.1 mg/dL Normal 0.0-0.2 [facility] Comment on above: Performed By: #### D DAVIDSON, MG, PHOS, CMP, LIPID, URIC #### [facility] [address] [place] [address] Dr. Sarmad Patino CBC W MANUAL DIFFon 12-06-19 22 ATYPICAL LYMPH # Normal [facility] Comment on above: Performed By: #### D DAVIDSON, MG, PHOS, CMP, LIPID, URIC #### [facility] [address] [place] [address] Dr. Sarmad Patino ATYPICAL LYMPH % Normal [facility] Comment on above: Performed By: #### D DAVIDSON, MG, PHOS, CMP, LIPID, URIC #### [facility] [address] [place] [place] [address] Dr. Sarmad Patino BAND # Normal 0.0-0.3 [facility] Comment on above: Performed By: #### D DAVIDSON, MG, PHOS, CMP, LIPID, URIC #### [facility] [address] [address] [address] Sarmad Patino BAND % Normal 0-5 [facility] Comment on above: Performed By: #### D DAVIDSON, MG, PHOS, CMP, LIPID, URIC #### [facility] [address] [address] [address] Sarmad Patino BASOM # 0.00 103/ul Normal 0.00-0.10 [facility] Comment on above: Performed By: #### D DAVIDSON, MG, PHOS, CMP, LIPID, URIC #### [facility] [address] [place] [address] Dr. Sarmad Patino BASOM % 0.0 % Critically low 0.2-2.0 [facility] Comment on above: Performed By: #### D DAVIDSON, MG, PHOS, CMP, LIPID, URIC #### [facility] [address] [address] [address] Sarmad Patino BLAST # Normal [facility] Comment on above: Performed By: #### D DAVIDSON, MG, PHOS, CMP, LIPID, URIC #### [facility] [address] [place] [address] Dr. Sarmad Patino BLAST % Normal [facility] Comment on above: Performed By: #### D DAVIDSON, MG, PHOS, CMP, LIPID, URIC #### [facility] [address] [address] [address] Sarmad Patino CORRECTED WBC Normal 4.0-11.0 [facility] Comment on above: Performed By: #### D DAVIDSON, MG, PHOS, CMP, LIPID, URIC #### [facility] [address] [address] [address] Sarmad Patino EOS # 0.15 103/ul Normal 0.00-0.70 [facility] Comment on above: Performed By: #### D DAVIDSON, MG, PHOS, CMP, LIPID, URIC #### [facility] [address] [place] [address] Dr. aSrmad Patino EOS% 2.0 % Normal 0.9-7.0 [facility] Comment on above: Performed By: #### D DAVIDSON, MG, PHOS, CMP, LIPID, URIC #### [facility] [address] [address] [address] Sarmad Patino HCT 47.5 % Normal 36.0-48.0 [facility] Comment on above: Performed By: #### D DAVIDSON, MG, PHOS, CMP, LIPID, URIC #### [facility] [address] [address] [address] Sarmad Patino HGB 15.6 g/dl Normal 12.0-16.0 [facility] Comment on above: Performed By: #### D DAVIDSON, MG, PHOS, CMP, LIPID, URIC #### [facility] [address] [place] [address] Dr. Sarmad Patino LYMPHM # 1.46 103/ul Normal 1.20-3.80 [facility] Comment on above: Performed By: #### D DAVIDSON, MG, PHOS, CMP, LIPID, URIC #### [facility] [address] [address] [address] Sarmad Patino LYMPHM% 19.0 % Critically low 20.5-60.0 [facility] Comment on above: Performed By: #### D DAVIDSON, MG, PHOS, CMP, LIPID, URIC #### [facility] [address] [address] [address] Sarmad Patino MCH 28.9 pg Normal 26.7-34.0 [facility] Comment on above: Performed By: #### D DAVIDSON, MG, PHOS, CMP, LIPID, URIC #### [facility] [address] [address] [address] Sarmad Patino MCHC 32.8 g/dl Normal 29.9-35.2 [facility] Comment on above: Performed By: #### D DAVIDSON, MG, PHOS, CMP, LIPID, URIC #### [facility] [address] [address] [address] Sarmad Patino MCV 88.1 fL Normal 81.0-99.0 [facility] Comment on above: Performed By: #### D DAVIDSON, MG, PHOS, CMP, LIPID, URIC #### [facility] [address] [address] [address] Sarmad Patino METAMYELOCYTE # Normal [facility] Comment on above: Performed By: #### D DAVIDSON, MG, PHOS, CMP, LIPID, URIC #### [facility] [address] [address] [address] Sarmad Patino METAMYELOCYTE % Normal [facility] Comment on above: Performed By: #### D DAVIDSON, MG, PHOS, CMP, LIPID, URIC #### [facility] [address] [address] [address] Sarmad Patino MONOM# 0.85 103/ul Critically high 0.30-0.80 [facility] Comment on above: Performed By: #### D DVAIDSON, MG, PHOS, CMP, LIPID, URIC #### [facility] [address] [address] [address] Sarmad Patino MONOM% 11.0 % Normal 1.7-12.0 [facility] Comment on above: Performed By: #### D DAVIDSON, MG, PHOS, CMP, LIPID, URIC #### [facility] [address] [address] [address] Sarmad Patino MPV 11.3 fL Normal 9.5-13.5 [facility] Comment on above: Performed By: #### D DAVIDSON, MG, PHOS, CMP, LIPID, URIC #### [facility] [address] [address] [address] Sarmad Patino MYELOCYTE # Normal [facility] Comment on above: Performed By: #### D DAVIDSON, MG, PHOS, CMP, LIPID, URIC #### [facility] [address] [address] [address] Sarmad aPtino MYELOCYTE % Normal [facility] Comment on above: Performed By: #### D DAVIDSON, MG, PHOS, CMP, LIPID, URIC #### [facility] [address] [address] [address] Sarmad Patino NRBC Normal [facility] Comment on above: Performed By: #### D DAVIDSON, MG, PHOS, CMP, LIPID, URIC #### [facility] [address] [address] [address] Sarmad Patino PLT 214 103/ul Normal 150-450 [facility] Comment on above: Performed By: #### D DAVIDSON, MG, PHOS, CMP, LIPID, URIC #### [facility] [address] [address] [address] Sarmad Patino RBC 5.39 106/ul Normal 4.20-5.40 [facility] Comment on above: Performed By: #### D DAVIDSON, MG, PHOS, CMP, LIPID, URIC #### [facility] [address] [place] [address] Dr. Sarmad Patino RDW 13.8 % Normal 11.0-15.0 [facility] Comment on above: Performed By: #### D DAVIDSON, MG, PHOS, CMP, LIPID, URIC #### [facility] [address] [place] [address] Dr. Sarmad Patino SEG # 5.24 103/ul Normal 1.40-6.50 [facility] Comment on above: Performed By: #### D DAVIDSON, MG, PHOS, CMP, LIPID, URIC #### [facility] [address] [place] [address] Dr. Sarmad Patino SEG % 68.0 % Normal 43.0-75.0 [facility] Comment on above: Performed By: #### D DAVIDSON, MG, PHOS, CMP, LIPID, URIC #### [facility] [address] [place] [address] Dr. Sarmad Patino WBC 7.7 103/ul Normal 4.0-11.0 [facility] Comment on above: Performed By: #### D DAVIDSON, MG, PHOS, CMP, LIPID, URIC #### [facility] [address] [place] [address] Dr. Sarmad Patino LIPID PROFILEon 12-05-2021 CHOL-HDL RATIO NORM SEE BELOW Normal [facility] Comment on above: Result Comment: 3.3 - 4.4 LOW RISK 4.4 - 7.1 AVERAGE RISK 7.1 - 11.0 MODERATE RISK >11.0 HIGH RISK Performed By: #### D DAVIDSON, MG, PHOS, CMP, LIPID, URIC #### [facility] [address] [address] [address] Sarmad Patino Cholesterol [Mass/Vol] 170 mg/dL Normal <=200 [facility] Comment on above: Performed By: #### D DAVIDSON, MG, PHOS, CMP, LIPID, URIC #### [facility] [address] [address] [address] Sarmad Patino Cholesterol in HDL [Mass/Vol] 54 mg/dL Normal 40-60 [facility] Comment on above: Performed By: #### D DAVIDSON, MG, PHOS, CMP, LIPID, URIC #### [facility] [address] [address] [address] Sarmad Patino Cholesterol in LDL [Mass/Vol] 92.2 mg/dL Normal [facility] Comment on above: Performed By: #### D DAVIDSON, MG, PHOS, CMP, LIPID, URIC #### [facility] [address] [address] [address] Sarmad Patino Cholesterol.total/Cho lesterol in HDL [Mass ratio] 3.1 {ratio} Normal [facility] Comment on above: Performed By: #### D DAVIDSON, MG, PHOS, CMP, LIPID, URIC #### [facility] [address] [address] [address] Sarmad Patino HDL NORMAL > or = 60 mg/dl - LO W CARDIOVASCULAR RISK <40 mg/dl - HIGH CARDIOVASCULAR RISK Normal [facility] Comment on above: Performed By: #### D DAVIDSON, MG, PHOS, CMP, LIPID, URIC #### [facility] [address] [address] [address] Sarmad Patino LDL CALC NORMAL SEE BELOW Normal [facility] Comment on above: Result Comment: <100 mg/dl OPTIMAL 100 - 129 mg/dl NEAR OR ABOVE OPTIMAL 130 - 159 mg/dl BORDERLINE HIGH 160 - 189 mg/dl HIGH >190 mg/dl VERY HIGH Performed By: #### D DAVIDSON, MG, PHOS, CMP, LIPID, URIC #### [facility] [address] [address] [address] Sarmad Patino Triglyceride [Mass/Vol] 119 mg/dL Normal <=150 [facility] Comment on above: Performed By: #### D DAVIDSON, MG, PHOS, CMP, LIPID, URIC #### [facility] [address] [address] [address] Sarmad Patino VLDL CALC 23.8 mg/dL Normal [facility] Comment on above: Performed By: #### D DAVIDSON, MG, PHOS, CMP, LIPID, URIC #### [facility] [address] [place] [address] Dr. Sarmad Patino MAGNESIUMon 12-05-2021 Magnesium [Mass/Vol] 1.8 mg/dL Normal 1.8-2.4 [facility] Comment on above: Performed By: #### D DAVIDSON, MG, PHOS, CMP, LIPID, URIC #### [facility] [address] [place] [address] Dr. Sarmad Patino PHOSPHORUSon 12-05-2021 Phosphate [Mass/Vol] 3.8 mg/dL Normal 2.6-4.7 [facility] Comment on above: Performed By: #### D DAVIDSON, MG, PHOS, CMP, LIPID, URIC #### [facility] [address] [place] [address] Dr. Sarmad Patino PROF 14(COMP METB)on 022 Albumin [Mass/Vol] 3.7 g/dL Normal 3.4-5.0 [facility] Comment on above: Performed By: #### D DAVIDSON, MG, PHOS, CMP, LIPID, URIC #### [facility] [address] [place] [address] Dr. Sarmad Patino Albumin/Globulin [Mass ratio] 1.0 {ratio} Normal [facility] Comment on above: Performed By: #### D DAVIDSON, MG, PHOS, CMP, LIPID, URIC #### [facility] [address] [place] [address] Dr. Sarmad Patino ALP [Catalytic activity/Vol] 151 U/L Critically high 46-116 [facility] Comment on above: Performed By: #### D DAVIDSON, MG, PHOS, CMP, LIPID, URIC #### [facility] [address] [address] [address] Sarmad Patino ALT [Catalytic activity/Vol] 27 U/L Normal 14-59 [facility] Comment on above: Performed By: #### D DAVIDSON, MG, PHOS, CMP, LIPID, URIC #### [facility] [address] [place] [address] Dr. Sarmad Patino Anion gap [Moles/Vol] 14.5 mmol/L Normal [facility] Comment on above: Performed By: #### D DAVIDSON, MG, PHOS, CMP, LIPID, URIC #### [facility] [address] [place] [address] Dr. Sarmad Patino AST [Catalytic activity/Vol] 25 U/L Normal 15-37 [facility] Comment on above: Performed By: #### D DAVIDSON, MG, PHOS, CMP, LIPID, URIC #### [facility] [address] [place] [address] Dr. Sarmad Patino Bilirubin [Mass/Vol] 0.4 mg/dL Normal 0.2-1.0 [facility] Comment on above: Performed By: #### D DAVIDSON, MG, PHOS, CMP, LIPID, URIC #### [facility] [address] [place] [address] Dr. Sarmad Patino Calcium [Mass/Vol] 9.4 mg/dL Normal 8.5-10.1 [facility] Comment on above: Performed By: #### D DAVIDSON, MG, PHOS, CMP, LIPID, URIC #### [facility] [address] [place] [address] Dr. Sarmad Patino Chloride [Moles/Vol] 103 mmol/L Normal 98-107 [facility] Comment on above: Performed By: #### D DAVIDSON, MG, PHOS, CMP, LIPID, URIC #### [facility] [address] [place] [address] Dr. Sarmad Patino CO2 [Moles/Vol] 26.5 mmol/L Normal 21.0-32.0 [facility] Comment on above: Performed By: #### D DAVIDSON, MG, PHOS, CMP, LIPID, URIC #### [facility] [address] [address] [address] Sarmad Patino Creatinine [Mass/Vol] 0.87 mg/dL Normal 0.55-1.02 [facility] Comment on above: Performed By: #### D DAVIDSON, MG, PHOS, CMP, LIPID, URIC #### [facility] [address] [place] [address] Dr. Sarmad Patino EGFR-AF LATVIAN >60 Normal >=60 [facility] Comment on above: Performed By: #### D DAVIDSON, MG, PHOS, CMP, LIPID, URIC #### [facility] [address] [place] [address] Dr. Sarmad Patino EGFR-NON AF LATVIAN >60 Normal >=60 [facility] Comment on above: Performed By: #### D DAVIDSON, MG, PHOS, CMP, LIPID, URIC #### [facility] [address] [place] [address] Dr. Sarmad Patino Globulin (S) [Mass/Vol] 3.8 g/dL Normal [facility] Comment on above: Performed By: #### D DAVIDSON, MG, PHOS, CMP, LIPID, URIC #### [facility] [address] [place] [address] Dr. Sarmad Patino Glucose [Mass/Vol] 104 mg/dL Normal 74-106 [facility] Comment on above: Performed By: #### D DAVIDSON, MG, PHOS, CMP, LIPID, URIC #### [facility] [address] [place] [address] Dr. Sarmad Patino Potassium [Moles/Vol] 4.0 mmol/L Normal 3.5-5.1 [facility] Comment on above: Performed By: #### D DAVIDSON, MG, PHOS, CMP, LIPID, URIC #### [facility] [address] [place] [address] Dr. Sarmad Patino Protein [Mass/Vol] 7.5 g/dL Normal 6.4-8.2 [facility] Comment on above: Performed By: #### D DAVIDSON, MG, PHOS, CMP, LIPID, URIC #### [facility] [address] [address] [address] Sarmad Patino Sodium [Moles/Vol] 140 mmol/L Normal 136-145 [facility] Comment on above: Performed By: #### D DAVIDSON, MG, PHOS, CMP, LIPID, URIC #### [facility] [address] [address] [address] Sarmad Patino Urea nitrogen [Mass/Vol] 19.0 mg/dL Critically high 7.0-18.0 [facility] Comment on above: Performed By: #### D DAVIDSON, MG, PHOS, CMP, LIPID, URIC #### [facility] [address] [place] [address] Dr. Sarmad Patino Urea nitrogen/Creatinine [Mass ratio] 21.8 mg/mg Normal [facility] Comment on above: Performed By: #### D DAVIDSON, MG, PHOS, CMP, LIPID, URIC #### [facility] [address] [place] [address] Dr. Sarmad Patino URIC ACID SERUMon 12-05-2021 Urate [Mass/Vol] 5.2 mg/dL Normal 2.6-6.0 [facility] Comment on above: Performed By: #### D DAVIDSON, MG, PHOS, CMP, LIPID, URIC #### [facility] [address] [place] [address] Dr. Sarmad CHRISTIEMU, WHOLE BLOODon EVEROLIMUS 7.0 ng/mL Normal 3.0-8.0 [facility] Comment on above: Result Comment: Perf ormed by LC-MS/MS technology. Performed By: #### D DAVIDSON, MG, PHOS, CMP, LIPID, URIC #### [facility] [address] [place] [address] Dr. Sarmad Patino FK506 (TACROLIMUS) WHOLE BLO ODon 11-10-2021 Tacrolimus (FK506), Blood 6.4 ng/mL Normal 2.0-20.0 [facility] Comment on above: Result Comment: Trou gh (immediately following transplant) 15.0 . Trough (steady state, 2 weeks or more after transplant): 3.0 - 8.0 . Performed by LC-MS/MS technology. Performed By: #### D DAVIDSON, MG, PHOS, CMP, LIPID, URIC #### [facility] [address] [place] [address] Dr. Sarmad Patino BK VIRUS PCR QUANTon 022 BKV DNA QUANT PCR PLASMA Negative Normal Negative [facility] Comment on above: Result Comment: No B K DNA detected. . The linear range of the assay is 22 - 100,000,000 IU/mL. Performed By: #### U JUVE, LIPID, MG, CMP, DBIL, PHOS #### [facility] [address] [place] [address] Dr. Sarmad Patino Log10 BKV DNA Plasma Normal [facility] Comment on above: Performed By: #### U JUVE, LIPID, MG, CMP, DBIL, PHOS #### [facility] [address] [place] [address] Dr. Sarmad aPtino BILIRUBIN CONJUGATED (DIRECT )on 11-07-2021 BILI, CONJUGATED 0.1 mg/dL Normal 0.0-0.2 [facility] Comment on above: Performed By: #### D DAVIDSON, MG, PHOS, CMP, LIPID, URIC #### [facility] [address] [place] [address] Dr. Sarmad Patino CBC AUTO DIFFon 11-07-2021 BASO # 0.0 103/ul Normal 0.0-0.1 [facility] Comment on above: Performed By: #### D DAVIDSON, MG, PHOS, CMP, LIPID, URIC #### [facility] [address] [place] [address] Dr. Sarmad Patino Basophils/100 WBC (Bld) 0.3 % Normal 0.2-2.0 [facility] Comment on above: Performed By: #### D DAVIDSON, MG, PHOS, CMP, LIPID, URIC #### [facility] [address] [place] [address] Dr. Sarmad Patino EO # 0.1 103/ul Normal 0.0-0.7 [facility] Comment on above: Performed By: #### D DAVIDSON, MG, PHOS, CMP, LIPID, URIC #### [facility] [address] [address] [address] Sarmad Patino Eosinophils/100 WBC (Bld) 2.1 % Normal 0.9-7.0 [facility] Comment on above: Performed By: #### D DAVIDSON, MG, PHOS, CMP, LIPID, URIC #### [facility] [address] [place] [address] Dr. Sarmad Patino Erythrocyte distribution width (RBC) [Ratio] 13.5 % Normal 11.0-15.0 [facility] Comment on above: Performed By: #### D DAVIDSON, MG, PHOS, CMP, LIPID, URIC #### [facility] [address] [place] [address] Dr. Sarmad Patino Hematocrit (Bld) [Volume fraction] 46.7 % Normal 36.0-48.0 [facility] Comment on above: Performed By: #### D DAVIDSON, MG, PHOS, CMP, LIPID, URIC #### [facility] [address] [place] [address] Dr. Sarmad Patino Hemoglobin (Bld) [Mass/Vol] 15.1 g/dL Normal 12.0-16.0 [facility] Comment on above: Performed By: #### D DAVIDSON, MG, PHOS, CMP, LIPID, URIC #### [facility] [address] [place] [address] Dr. Sarmad Patino IG # 0.03 10e3/ul Normal 0.00-0.03 [facility] Comment on above: Performed By: #### D DAVIDSON, MG, PHOS, CMP, LIPID, URIC #### [facility] [address] [place] [address] Dr. Sarmad Patino IG % 0.5 % Normal 0.0-0.5 [facility] Comment on above: Performed By: #### D DAVIDSON, MG, PHOS, CMP, LIPID, URIC #### [facility] [address] [place] [address] Dr. Sarmad Patino LYMPH # 1.3 103/ul Normal 1.2-3.8 [facility] Comment on above: Performed By: #### D DAVIDSON, MG, PHOS, CMP, LIPID, URIC #### [facility] [address] [address] [address] Sarmad Patino Lymphocytes/100 WBC (Bld) 19.9 % Critically low 20.5-60.0 [facility] Comment on above: Performed By: #### D DAVIDSON, MG, PHOS, CMP, LIPID, URIC #### [facility] [address] [address] [address] Sarmad Patino MANUAL DIFF REQ NO Normal [facility] Comment on above: Performed By: #### D DAVIDSON, MG, PHOS, CMP, LIPID, URIC #### [facility] [address] [place] [address] Dr. Sarmad Patino MCH (RBC) [Entitic mass] 28.6 pg Normal 26.7-34.0 [facility] Comment on above: Performed By: #### D DAVIDSON, MG, PHOS, CMP, LIPID, URIC #### [facility] [address] [place] [address] Dr. Sarmad Patino MCHC (RBC) [Mass/Vol] 32.3 g/dL Normal 29.9-35.2 [facility] Comment on above: Performed By: #### D DAVIDSON, MG, PHOS, CMP, LIPID, URIC #### [facility] [address] [place] [address] Dr. Sarmad Patino MCV (RBC) [Entitic vol] 88.4 fL Normal 81.0-99.0 [facility] Comment on above: Performed By: #### D DAVIDSON, MG, PHOS, CMP, LIPID, URIC #### [facility] [address] [place] [address] Dr. Sarmad Patino MONO # 0.8 103/ul Normal 0.3-0.8 [facility] Comment on above: Performed By: #### D DAVIDSON, MG, PHOS, CMP, LIPID, URIC #### [facility] [address] [place] [address] Dr. Sarmad Patino Monocytes/100 WBC (Bld) 12.9 % Critically high 1.7-12.0 [facility] Comment on above: Performed By: #### D DAVIDSON, MG, PHOS, CMP, LIPID, URIC #### [facility] [address] [address] [address] Sarmad Patino NEUT # 4.0 103/ul Normal 1.4-6.5 [facility] Comment on above: Performed By: #### D DAVIDSON, MG, PHOS, CMP, LIPID, URIC #### [facility] [address] [address] [address] Sarmad Patino Neutrophils/100 WBC (Bld) 64.3 % Normal 43.0-75.0 [facility] Comment on above: Performed By: #### D DAVIDSON, MG, PHOS, CMP, LIPID, URIC #### [facility] [address] [address] [address] Sarmad Patino Platelet mean volume (Bld) [Entitic vol] 11.3 fL Normal 9.5-13.5 [facility] Comment on above: Performed By: #### D DAVIDSON, MG, PHOS, CMP, LIPID, URIC #### [facility] [address] [address] [address] Sarmad Patino PLT 241 103/ul Normal 150-450 [facility] Comment on above: Performed By: #### D DAVIDSON, MG, PHOS, CMP, LIPID, URIC #### [facility] [address] [address] [address] Sarmad Patino RBC 5.28 106/ul Normal 4.20-5.40 [facility] Comment on above: Performed By: #### D DAVIDSON, MG, PHOS, CMP, LIPID, URIC #### [facility] [address] [address] [address] Sarmad Patino WBC 6.3 103/ul Normal 4.0-11.0 [facility] Comment on above: Performed By: #### D DAVIDSON, MG, PHOS, CMP, LIPID, URIC #### [facility] [address] [address] [address] Sarmad Patino GLYCOHEMOGLOBIN A1Con 2021 ADA RECOMMENDATION SEE BELOW Normal [facility] Comment on above: Result Comment: ADA RECOMMENDED LIMIT 4.0 - 6.0 ADA THERAPEUTIC TARGET < 7.0 ACTION SUGGESTED > 7.0 Performed By: #### D DAVIDSON, MG, PHOS, CMP, LIPID, URIC #### [facility] [address] [address] [address] Sarmad Patino Glucose [Mass/Vol] 120 mg/dL Normal [facility] Comment on above: Performed By: #### D DAVIDSON, MG, PHOS, CMP, LIPID, URIC #### [facility] [address] [address] [address] Sarmad Patino HbA1c (Bld) [Mass fraction] 5.8 % Normal 4.5-6.2 [facility] Comment on above: Performed By: #### D DAVIDSON, MG, PHOS, CMP, LIPID, URIC #### [facility] [address] [place] [address] Dr. Sarmad Patino LIPID PROFILEon 11-07-2021 CHOL-HDL RATIO NORM SEE BELOW Normal [facility] Comment on above: Result Comment: 3.3 - 4.4 LOW RISK 4.4 - 7.1 AVERAGE RISK 7.1 - 11.0 MODERATE RISK >11.0 HIGH RISK Performed By: #### D DAVIDSON, MG, PHOS, CMP, LIPID, URIC #### [facility] [address] [address] [address] Sarmad Patino Cholesterol [Mass/Vol] 157 mg/dL Normal <=200 [facility] Comment on above: Performed By: #### D DAVIDSON, MG, PHOS, CMP, LIPID, URIC #### [facility] [address] [address] [address] Sarmad Patino Cholesterol in HDL [Mass/Vol] 48 mg/dL Normal 40-60 [facility] Comment on above: Performed By: #### D DAVIDSON, MG, PHOS, CMP, LIPID, URIC #### [facility] [address] [address] [address] Sarmad Patino Cholesterol in LDL [Mass/Vol] 89.6 mg/dL Normal [facility] Comment on above: Performed By: #### D DAVIDSON, MG, PHOS, CMP, LIPID, URIC #### [facility] [address] [address] [address] Sarmad Patino Cholesterol.total/Cho lesterol in HDL [Mass ratio] 3.3 {ratio} Normal [facility] Comment on above: Performed By: #### D DAVIDSON, MG, PHOS, CMP, LIPID, URIC #### [facility] [address] [address] [address] Sarmad Patino HDL NORMAL > or = 60 mg/dl - LO W CARDIOVASCULAR RISK <40 mg/dl - HIGH CARDIOVASCULAR RISK Normal [facility] Comment on above: Performed By: #### D DAVIDSON, MG, PHOS, CMP, LIPID, URIC #### [facility] [address] [address] [address] Sarmad Patino LDL CALC NORMAL SEE BELOW Normal [facility] Comment on above: Result Comment: <100 mg/dl OPTIMAL 100 - 129 mg/dl NEAR OR ABOVE OPTIMAL 130 - 159 mg/dl BORDERLINE HIGH 160 - 189 mg/dl HIGH >190 mg/dl VERY HIGH Performed By: #### D DAVIDSON, MG, PHOS, CMP, LIPID, URIC #### [facility] [address] [address] [address] Sarmad Patino Triglyceride [Mass/Vol] 97 mg/dL Normal <=150 [facility] Comment on above: Performed By: #### D DAVIDSON, MG, PHOS, CMP, LIPID, URIC #### [facility] [address] [address] [address] Sarmad Patino VLDL CALC 19.4 mg/dL Normal [facility] Comment on above: Performed By: #### D DAVIDSON, MG, PHOS, CMP, LIPID, URIC #### [facility] [address] [address] [address] Sarmad Patino MAGNESIUMon 11-07-2021 Magnesium [Mass/Vol] 1.9 mg/dL Normal 1.8-2.4 [facility] Comment on above: Performed By: #### D DAVIDSON, MG, PHOS, CMP, LIPID, URIC #### [facility] [address] [address] [address] Sarmad Patino PHOSPHORUSon 11-07-2021 Phosphate [Mass/Vol] 3.4 mg/dL Normal 2.6-4.7 [facility] Comment on above: Performed By: #### D DAVIDSON, MG, PHOS, CMP, LIPID, URIC #### [facility] [address] [place] [address] Dr. Sarmad Patino PROF 14(COMP METB)on 022 Albumin [Mass/Vol] 3.6 g/dL Normal 3.4-5.0 [facility] Comment on above: Performed By: #### D DAVIDSON, MG, PHOS, CMP, LIPID, URIC #### [facility] [address] [place] [address] Dr. Sarmad Patino Albumin/Globulin [Mass ratio] 0.9 {ratio} Normal [facility] Comment on above: Performed By: #### D DAVIDSON, MG, PHOS, CMP, LIPID, URIC #### [facility] [address] [place] [address] Dr. Sarmad Patino ALP [Catalytic activity/Vol] 158 U/L Critically high 46-116 [facility] Comment on above: Performed By: #### D DAVIDSON, MG, PHOS, CMP, LIPID, URIC #### [facility] [address] [place] [address] Dr. Sarmad Patino ALT [Catalytic activity/Vol] 23 U/L Normal 14-59 [facility] Comment on above: Performed By: #### D DAVIDSON, MG, PHOS, CMP, LIPID, URIC #### [facility] [address] [place] [address] Dr. Sarmad Patino Anion gap [Moles/Vol] 14.8 mmol/L Normal [facility] Comment on above: Performed By: #### D DAVIDSON, MG, PHOS, CMP, LIPID, URIC #### [facility] [address] [place] [address] Dr. Sarmad Patino AST [Catalytic activity/Vol] 18 U/L Normal 15-37 [facility] Comment on above: Performed By: #### D DAVIDSON, MG, PHOS, CMP, LIPID, URIC #### [facility] [address] [address] [address] Sarmad Patino Bilirubin [Mass/Vol] 0.4 mg/dL Normal 0.2-1.0 [facility] Comment on above: Performed By: #### D DAVIDSON, MG, PHOS, CMP, LIPID, URIC #### [facility] [address] [place] [address] Dr. Sarmad Patino Calcium [Mass/Vol] 9.3 mg/dL Normal 8.5-10.1 [facility] Comment on above: Performed By: #### D DAVIDSON, MG, PHOS, CMP, LIPID, URIC #### [facility] [address] [address] [address] Sarmad Patino Chloride [Moles/Vol] 105 mmol/L Normal 98-107 [facility] Comment on above: Performed By: #### D DAVIDSON, MG, PHOS, CMP, LIPID, URIC #### [facility] [address] [place] [address] Dr. Sarmad Patino CO2 [Moles/Vol] 26.1 mmol/L Normal 21.0-32.0 [facility] Comment on above: Performed By: #### D DAVIDSON, MG, PHOS, CMP, LIPID, URIC #### [facility] [address] [place] [address] Dr. Sarmad Patino Creatinine [Mass/Vol] 0.84 mg/dL Normal 0.55-1.02 [facility] Comment on above: Performed By: #### D DAVIDSON, MG, PHOS, CMP, LIPID, URIC #### [facility] [address] [place] [address] Dr. Sarmad Patino EGFR-AF LATVIAN >60 Normal >=60 [facility] Comment on above: Performed By: #### D DAVIDSON, MG, PHOS, CMP, LIPID, URIC #### [facility] [address] [place] [address] Dr. Sarmad Patino EGFR-NON AF LATVIAN >60 Normal >=60 [facility] Comment on above: Performed By: #### D DAVIDSON, MG, PHOS, CMP, LIPID, URIC #### [facility] [address] [address] [address] Sarmad Patino Globulin (S) [Mass/Vol] 3.8 g/dL Normal [facility] Comment on above: Performed By: #### D DAVIDSON, MG, PHOS, CMP, LIPID, URIC #### [facility] [address] [address] [address] Sarmad Patino Glucose [Mass/Vol] 97 mg/dL Normal 74-106 [facility] Comment on above: Performed By: #### D DAVIDSON, MG, PHOS, CMP, LIPID, URIC #### [facility] [address] [place] [address] Dr. Sarmad Patino Potassium [Moles/Vol] 3.9 mmol/L Normal 3.5-5.1 [facility] Comment on above: Performed By: #### D DAVIDSON, MG, PHOS, CMP, LIPID, URIC #### [facility] [address] [place] [address] Dr. Sarmad Patino Protein [Mass/Vol] 7.4 g/dL Normal 6.4-8.2 [facility] Comment on above: Performed By: #### D DAVIDSON, MG, PHOS, CMP, LIPID, URIC #### [facility] [address] [place] [address] Dr. Sarmad Patino Sodium [Moles/Vol] 142 mmol/L Normal 136-145 [facility] Comment on above: Performed By: #### D DAVIDSON, MG, PHOS, CMP, LIPID, URIC #### [facility] [address] [place] [address] Dr. Sarmad Patino Urea nitrogen [Mass/Vol] 21.0 mg/dL Critically high 7.0-18.0 [facility] Comment on above: Performed By: #### D DAVIDSON, MG, PHOS, CMP, LIPID, URIC #### [facility] [address] [place] [address] Dr. Sarmad Patino Urea nitrogen/Creatinine [Mass ratio] 25.0 mg/mg Normal [facility] Comment on above: Performed By: #### D DAVIDSON, MG, PHOS, CMP, LIPID, URIC #### [facility] [address] [place] [address] Dr. Sarmad Patino URIC ACID SERUMon 11-07-2021 Urate [Mass/Vol] 5.1 mg/dL Normal 2.6-6.0 [facility] Comment on above: Performed By: #### D DAVIDSON, MG, PHOS, CMP, LIPID, URIC #### [facility] [address] [address] [address] Sarmad Patino BOX TEST SENT OUTon 10-16-19 22 SENT TO REF LAB 10/15/2021 Normal [facility] Comment on above: Performed By: #### D DAVIDSON, MG, PHOS, CMP, LIPID, URIC #### [facility] [address] [place] [address] Dr. Sarmad Patino EVEROLIMU, WHOLE BLOODon EVEROLIMUS 6.7 ng/mL Normal 3.0-8.0 [facility] Comment on above: Result Comment: Perf ormed by LC-MS/MS technology. Performed By: #### D DAVIDSON, MG, PHOS, CMP, LIPID, URIC #### [facility] [address] [place] [address] Dr. Sarmad Patino FK506 (TACROLIMUS) WHOLE BLO ODon 10-10-2021 Tacrolimus (FK506), Blood 5.9 ng/mL Normal 2.0-20.0 [facility] Comment on above: Result Comment: Trou gh (immediately following transplant) 15.0 . Trough (steady state, 2 weeks or more after transplant): 3.0 - 8.0 . Performed by LC-MS/MS technology. Performed By: #### D DAVIDSON, MG, PHOS, CMP, LIPID, URIC #### [facility] [address] [place] [address] Dr. Sarmad Patino BILIRUBIN CONJUGATED (DIRECT )on 10-08-2021 BILI, CONJUGATED 0.1 mg/dL Normal 0.0-0.2 [facility] Comment on above: Performed By: #### U JUVE, LIPID, MG, CMP, DBIL, PHOS #### [facility] [address] [place] [address] Dr. Sarmad Patino CBC AUTO DIFFon 10-08-2021 BASO # 0.0 103/ul Normal 0.0-0.1 [facility] Comment on above: Performed By: #### D DAVIDSON, MG, PHOS, CMP, LIPID, URIC #### [facility] [address] [place] [address] Dr. Saramd Patino Basophils/100 WBC (Bld) 0.1 % Critically low 0.2-2.0 [facility] Comment on above: Performed By: #### D DAVIDSON, MG, PHOS, CMP, LIPID, URIC #### [facility] [address] [place] [address] Dr. Sarmad Patino EO # 0.1 103/ul Normal 0.0-0.7 [facility] Comment on above: Performed By: #### D DAVIDSON, MG, PHOS, CMP, LIPID, URIC #### [facility] [address] [place] [address] Dr. Sarmad Patino Eosinophils/100 WBC (Bld) 1.4 % Normal 0.9-7.0 [facility] Comment on above: Performed By: #### D DAVIDSON, MG, PHOS, CMP, LIPID, URIC #### [facility] [address] [place] [address] Dr. Sarmad Patino Erythrocyte distribution width (RBC) [Ratio] 13.6 % Normal 11.0-15.0 [facility] Comment on above: Performed By: #### D DAVIDSON, MG, PHOS, CMP, LIPID, URIC #### [facility] [address] [place] [address] Dr. Sarmad Patino Hematocrit (Bld) [Volume fraction] 47.5 % Normal 36.0-48.0 [facility] Comment on above: Performed By: #### D DAVIDSON, MG, PHOS, CMP, LIPID, URIC #### [facility] [address] [place] [address] Dr. Sarmad Patino Hemoglobin (Bld) [Mass/Vol] 15.7 g/dL Normal 12.0-16.0 [facility] Comment on above: Performed By: #### D DAVIDSON, MG, PHOS, CMP, LIPID, URIC #### [facility] [address] [address] [address] Sarmad Patino IG # 0.04 10e3/ul Critically high 0.00-0.03 [facility] Comment on above: Performed By: #### D DAVIDSON, MG, PHOS, CMP, LIPID, URIC #### [facility] [address] [place] [address] Dr. Sarmad Patino IG % 0.5 % Normal 0.0-0.5 [facility] Comment on above: Performed By: #### D DAVIDSON, MG, PHOS, CMP, LIPID, URIC #### [facility] [address] [place] [address] Dr. Sarmad Patino LYMPH # 1.3 103/ul Normal 1.2-3.8 [facility] Comment on above: Performed By: #### D DAVIDSON, MG, PHOS, CMP, LIPID, URIC #### [facility] [address] [place] [address] Dr. Sarmad Patino Lymphocytes/100 WBC (Bld) 15.4 % Critically low 20.5-60.0 [facility] Comment on above: Performed By: #### D DAVIDSON, MG, PHOS, CMP, LIPID, URIC #### [facility] [address] [place] [address] Dr. Sarmad Patino MANUAL DIFF REQ NO Normal [facility] Comment on above: Performed By: #### D DAVIDSON, MG, PHOS, CMP, LIPID, URIC #### [facility] [address] [place] [address] Dr. Sarmad Patino MCH (RBC) [Entitic mass] 29.1 pg Normal 26.7-34.0 [facility] Comment on above: Performed By: #### D DAVIDSON, MG, PHOS, CMP, LIPID, URIC #### [facility] [address] [place] [address] Dr. Sarmad Patino MCHC (RBC) [Mass/Vol] 33.1 g/dL Normal 29.9-35.2 [facility] Comment on above: Performed By: #### D DAVIDSON, MG, PHOS, CMP, LIPID, URIC #### [facility] [address] [address] [address] Sarmad Patino MCV (RBC) [Entitic vol] 88.0 fL Normal 81.0-99.0 [facility] Comment on above: Performed By: #### D DAVIDSON, MG, PHOS, CMP, LIPID, URIC #### [facility] [address] [place] [address] Dr. Sarmad Patino MONO # 0.9 103/ul Critically high 0.3-0.8 [facility] Comment on above: Performed By: #### D DAVIDSON, MG, PHOS, CMP, LIPID, URIC #### [facility] [address] [place] [address] Dr. Sarmad Patino Monocytes/100 WBC (Bld) 10.2 % Normal 1.7-12.0 [facility] Comment on above: Performed By: #### D DAVIDSON, MG, PHOS, CMP, LIPID, URIC #### [facility] [address] [place] [address] Dr. Sarmad Patino NEUT # 6.1 103/ul Normal 1.4-6.5 [facility] Comment on above: Performed By: #### D DAVIDSON, MG, PHOS, CMP, LIPID, URIC #### [facility] [address] [place] [address] Dr. Sarmad Patino Neutrophils/100 WBC (Bld) 72.4 % Normal 43.0-75.0 [facility] Comment on above: Performed By: #### D DAVIDSON, MG, PHOS, CMP, LIPID, URIC #### [facility] [address] [place] [address] Dr. Sarmad Patino Platelet mean volume (Bld) [Entitic vol] 11.1 fL Normal 9.5-13.5 [facility] Comment on above: Performed By: #### D DAVIDSON, MG, PHOS, CMP, LIPID, URIC #### [facility] [address] [place] [address] Dr. Sarmad Patino PLT 213 103/ul Normal 150-450 [facility] Comment on above: Performed By: #### D DAVIDSON, MG, PHOS, CMP, LIPID, URIC #### [facility] [address] [address] [address] Sarmad Patino RBC 5.40 106/ul Normal 4.20-5.40 [facility] Comment on above: Performed By: #### D DAVIDSON, MG, PHOS, CMP, LIPID, URIC #### [facility] [address] [address] [address] Sarmad Patino WBC 8.4 103/ul Normal 4.0-11.0 [facility] Comment on above: Performed By: #### D DAVIDSON, MG, PHOS, CMP, LIPID, URIC #### [facility] [address] [address] [address] Sarmad Patino LIPID PROFILEon 10-08-2021 CHOL-HDL RATIO NORM SEE BELOW Normal [facility] Comment on above: Result Comment: 3.3 - 4.4 LOW RISK 4.4 - 7.1 AVERAGE RISK 7.1 - 11.0 MODERATE RISK >11.0 HIGH RISK Performed By: #### D DAVIDSON, MG, PHOS, CMP, LIPID, URIC #### [facility] [address] [address] [address] Sarmad Patino Cholesterol [Mass/Vol] 155 mg/dL Normal <=200 [facility] Comment on above: Performed By: #### D DAVIDSON, MG, PHOS, CMP, LIPID, URIC #### [facility] [address] [address] [address] Sarmad Patino Cholesterol in HDL [Mass/Vol] 49 mg/dL Normal 40-60 [facility] Comment on above: Performed By: #### D DAVIDSON, MG, PHOS, CMP, LIPID, URIC #### [facility] [address] [address] [address] Sarmad Patino Cholesterol in LDL [Mass/Vol] 73.8 mg/dL Normal [facility] Comment on above: Performed By: #### D DAVIDSON, MG, PHOS, CMP, LIPID, URIC #### [facility] [address] [address] [address] Sarmad Patino Cholesterol.total/Cho lesterol in HDL [Mass ratio] 3.2 {ratio} Normal [facility] Comment on above: Performed By: #### D DAVIDSON, MG, PHOS, CMP, LIPID, URIC #### [facility] [address] [address] [address] Sarmad Patino HDL NORMAL > or = 60 mg/dl - LO W CARDIOVASCULAR RISK <40 mg/dl - HIGH CARDIOVASCULAR RISK Normal [facility] Comment on above: Performed By: #### D DAVIDSON, MG, PHOS, CMP, LIPID, URIC #### [facility] [address] [address] [address] Sarmad Patino LDL CALC NORMAL SEE BELOW Normal [facility] Comment on above: Result Comment: <100 mg/dl OPTIMAL 100 - 129 mg/dl NEAR OR ABOVE OPTIMAL 130 - 159 mg/dl BORDERLINE HIGH 160 - 189 mg/dl HIGH >190 mg/dl VERY HIGH Performed By: #### D DAVIDSON, MG, PHOS, CMP, LIPID, URIC #### [facility] [address] [address] [address] Sarmad Patino Triglyceride [Mass/Vol] 161 mg/dL Critically high <=150 [facility] Comment on above: Performed By: #### D DAVIDSON, MG, PHOS, CMP, LIPID, URIC #### [facility] [address] [place] [address] Dr. Sarmad Patino VLDL CALC 32.2 mg/dL Normal [facility] Comment on above: Performed By: #### D DAVIDSON, MG, PHOS, CMP, LIPID, URIC #### [facility] [address] [place] [address] Dr. Sarmad Patino MAGNESIUMon 10-08-2021 Magnesium [Mass/Vol] 1.6 mg/dL Critically low 1.8-2.4 [facility] Comment on above: Performed By: #### U JUVE, LIPID, MG, CMP, DBIL, PHOS #### [facility] [address] [place] [address] Dr. Sarmad Patino PHOSPHORUSon 10-08-2021 Phosphate [Mass/Vol] 3.5 mg/dL Normal 2.6-4.7 [facility] Comment on above: Performed By: #### U JUVE, LIPID, MG, CMP, DBIL, PHOS #### [facility] [address] [place] [address] Dr. Sarmad Patino PROF 14(COMP METB)on 022 Albumin [Mass/Vol] 3.6 g/dL Normal 3.4-5.0 [facility] Comment on above: Performed By: #### D DAVIDSON, MG, PHOS, CMP, LIPID, URIC #### [facility] [address] [place] [address] Dr. Sarmad Patino Albumin/Globulin [Mass ratio] 0.9 {ratio} Normal [facility] Comment on above: Performed By: #### D DAVIDSON, MG, PHOS, CMP, LIPID, URIC #### [facility] [address] [place] [address] Dr. Sarmad Patino ALP [Catalytic activity/Vol] 150 U/L Critically high 46-116 [facility] Comment on above: Performed By: #### D DAVIDSON, MG, PHOS, CMP, LIPID, URIC #### [facility] [address] [place] [address] Dr. Sarmad Patino ALT [Catalytic activity/Vol] 21 U/L Normal 14-59 [facility] Comment on above: Performed By: #### D DAVIDSON, MG, PHOS, CMP, LIPID, URIC #### [facility] [address] [place] [address] Dr. Sarmad Patino Anion gap [Moles/Vol] 14.0 mmol/L Normal [facility] Comment on above: Performed By: #### D DAVIDSON, MG, PHOS, CMP, LIPID, URIC #### [facility] [address] [place] [address] Dr. Sarmad Patino AST [Catalytic activity/Vol] 13 U/L Critically low 15-37 [facility] Comment on above: Performed By: #### D DAVIDSON, MG, PHOS, CMP, LIPID, URIC #### [facility] [address] [place] [address] Dr. Sarmad Patino Bilirubin [Mass/Vol] 0.5 mg/dL Normal 0.2-1.0 [facility] Comment on above: Performed By: #### D DAVIDSON, MG, PHOS, CMP, LIPID, URIC #### [facility] [address] [address] [address] Sarmad Patino Calcium [Mass/Vol] 9.8 mg/dL Normal 8.5-10.1 [facility] Comment on above: Performed By: #### D DAVIDSON, MG, PHOS, CMP, LIPID, URIC #### [facility] [address] [address] [address] Sarmad Patino Chloride [Moles/Vol] 105 mmol/L Normal 98-107 [facility] Comment on above: Performed By: #### D DAVIDSON, MG, PHOS, CMP, LIPID, URIC #### [facility] [address] [place] [address] Dr. Sarmad Patino CO2 [Moles/Vol] 25.9 mmol/L Normal 21.0-32.0 [facility] Comment on above: Performed By: #### D DAVIDSON, MG, PHOS, CMP, LIPID, URIC #### [facility] [address] [place] [address] Dr. Sarmad Patino Creatinine [Mass/Vol] 0.81 mg/dL Normal 0.55-1.02 [facility] Comment on above: Performed By: #### D DAVIDSON, MG, PHOS, CMP, LIPID, URIC #### [facility] [address] [place] [address] Dr. Sarmad Patino EGFR-AF LATVIAN >60 Normal >=60 [facility] Comment on above: Performed By: #### D DAVIDSON, MG, PHOS, CMP, LIPID, URIC #### [facility] [address] [place] [address] Dr. Sarmad Patino EGFR-NON AF LATVIAN >60 Normal >=60 [facility] Comment on above: Performed By: #### D DAVIDSON, MG, PHOS, CMP, LIPID, URIC #### [facility] [address] [address] [address] Sarmad Patino Globulin (S) [Mass/Vol] 3.8 g/dL Normal [facility] Comment on above: Performed By: #### D DAVIDSON, MG, PHOS, CMP, LIPID, URIC #### [facility] [address] [address] [address] Sarmad Patino Glucose [Mass/Vol] 101 mg/dL Normal 74-106 [facility] Comment on above: Performed By: #### D DAVIDSON, MG, PHOS, CMP, LIPID, URIC #### [facility] [address] [address] [address] Sarmad Patino Potassium [Moles/Vol] 3.9 mmol/L Normal 3.5-5.1 [facility] Comment on above: Performed By: #### D DAVIDSON, MG, PHOS, CMP, LIPID, URIC #### [facility] [address] [place] [address] Dr. Sarmad Patino Protein [Mass/Vol] 7.4 g/dL Normal 6.4-8.2 [facility] Comment on above: Performed By: #### D DAVIDSON, MG, PHOS, CMP, LIPID, URIC #### [facility] [address] [place] [address] Dr. Sarmad Patino Sodium [Moles/Vol] 141 mmol/L Normal 136-145 [facility] Comment on above: Performed By: #### D DAVIDSON, MG, PHOS, CMP, LIPID, URIC #### [facility] [address] [address] [address] Sarmad Patino Urea nitrogen [Mass/Vol] 18.0 mg/dL Normal 7.0-18.0 [facility] Comment on above: Performed By: #### D DAVIDSON, MG, PHOS, CMP, LIPID, URIC #### [facility] [address] [address] [address] Sarmad Patino Urea nitrogen/Creatinine [Mass ratio] 22.2 mg/mg Normal [facility] Comment on above: Performed By: #### D DAVIDSON, MG, PHOS, CMP, LIPID, URIC #### [facility] [address] [address] [address] Sarmad Patino URIC ACID SERUMon 10-08-2021 Urate [Mass/Vol] 4.7 mg/dL Normal 2.6-6.0 [facility] Comment on above: Performed By: #### D DAVIDSON, MG, PHOS, CMP, LIPID, URIC #### [facility] [address] [place] [address] Dr. Sarmad SALAZAROLIMU, WHOLE BLOODon EVEROLIMUS 8.0 ng/mL Normal 3.0-8.0 [facility] Comment on above: Result Comment: Perf ormed by LC-MS/MS technology. Performed By: #### U JUVE, LIPID, MG, CMP, DBIL, PHOS #### [facility] [address] [address] [address] Sarmad Patino FK506 (TACROLIMUS) WHOLE BLO ODon 09-14-2021 Tacrolimus (FK506), Blood 9.3 ng/mL Normal 2.0-20.0 [facility] Comment on above: Result Comment: Trou gh (immediately following transplant) 15.0 . Trough (steady state, 2 weeks or more after transplant): 3.0 - 8.0 . Performed by LC-MS/MS technology. Performed By: #### U JUVE, LIPID, MG, CMP, DBIL, PHOS #### [facility] [address] [place] [address] Dr. Sarmad Patino BK VIRUS PCR QUANTon 022 BKV DNA QUANT PCR PLASMA Negative Normal Negative [facility] Comment on above: Result Comment: No B K DNA detected. . The linear range of the assay is 22 - 100,000,000 IU/mL. Performed By: #### D DAVIDSON, MG, PHOS, CMP, LIPID, URIC #### [facility] [address] [place] [address] Dr. Sramad Patino Log10 BKV DNA Plasma Normal [facility] Comment on above: Performed By: #### D DAVIDSON, MG, PHOS, CMP, LIPID, URIC #### [facility] [address] [place] [address] Dr. Sarmad Patino BILIRUBIN CONJUGATED (DIRECT )on 09-10-2021 BILI, CONJUGATED 0.1 mg/dL Normal 0.0-0.2 [facility] Comment on above: Performed By: #### D DAVIDSON, MG, PHOS, CMP, LIPID, URIC #### [facility] [address] [place] [address] Dr. Sarmad Patino CBC AUTO DIFFon 09-10-2021 BASO # 0.0 103/ul Normal 0.0-0.1 [facility] Comment on above: Performed By: #### D DAVIDSON, MG, PHOS, CMP, LIPID, URIC #### [facility] [address] [place] [address] Dr. Sarmad Patino Basophils/100 WBC (Bld) 0.1 % Critically low 0.2-2.0 [facility] Comment on above: Performed By: #### D DAVIDSON, MG, PHOS, CMP, LIPID, URIC #### [facility] [address] [place] [address] Dr. Sarmad Patino EO # 0.2 103/ul Normal 0.0-0.7 [facility] Comment on above: Performed By: #### D DAVIDSON, MG, PHOS, CMP, LIPID, URIC #### [facility] [address] [place] [address] Dr. Sarmad Patino Eosinophils/100 WBC (Bld) 2.3 % Normal 0.9-7.0 [facility] Comment on above: Performed By: #### D DAVIDSON, MG, PHOS, CMP, LIPID, URIC #### [facility] [address] [place] [address] Dr. Sarmad Patino Erythrocyte distribution width (RBC) [Ratio] 13.6 % Normal 11.0-15.0 [facility] Comment on above: Performed By: #### D DAVIDSON, MG, PHOS, CMP, LIPID, URIC #### [facility] [address] [place] [address] Dr. Sarmad Patino Hematocrit (Bld) [Volume fraction] 45.1 % Normal 36.0-48.0 [facility] Comment on above: Performed By: #### D DAVIDSON, MG, PHOS, CMP, LIPID, URIC #### [facility] [address] [place] [address] Dr. Sarmad Patino Hemoglobin (Bld) [Mass/Vol] 14.7 g/dL Normal 12.0-16.0 [facility] Comment on above: Performed By: #### D DAVIDSON, MG, PHOS, CMP, LIPID, URIC #### [facility] [address] [place] [address] Dr. Sarmad Patino IG # 0.03 10e3/ul Normal 0.00-0.03 [facility] Comment on above: Performed By: #### D DAVIDSON, MG, PHOS, CMP, LIPID, URIC #### [facility] [address] [place] [address] Dr. Sarmad Patino IG % 0.4 % Normal 0.0-0.5 [facility] Comment on above: Performed By: #### D DAVIDSON, MG, PHOS, CMP, LIPID, URIC #### [facility] [address] [place] [address] Dr. Sarmad Patino LYMPH # 1.3 103/ul Normal 1.2-3.8 [facility] Comment on above: Performed By: #### D DAVIDSON, MG, PHOS, CMP, LIPID, URIC #### [facility] [address] [place] [address] Dr. Sarmad Patino Lymphocytes/100 WBC (Bld) 18.9 % Critically low 20.5-60.0 [facility] Comment on above: Performed By: #### D DAVIDSON, MG, PHOS, CMP, LIPID, URIC #### [facility] [address] [place] [address] Dr. Sarmad Patino MANUAL DIFF REQ NO Normal [facility] Comment on above: Performed By: #### D DAVIDSON, MG, PHOS, CMP, LIPID, URIC #### [facility] [address] [place] [address] Dr. Sarmad Patino MCH (RBC) [Entitic mass] 29.0 pg Normal 26.7-34.0 [facility] Comment on above: Performed By: #### D DAVIDSON, MG, PHOS, CMP, LIPID, URIC #### [facility] [address] [place] [address] Dr. Sarmad Patino MCHC (RBC) [Mass/Vol] 32.6 g/dL Normal 29.9-35.2 [facility] Comment on above: Performed By: #### D DAVIDSON, MG, PHOS, CMP, LIPID, URIC #### [facility] [address] [place] [address] Dr. Sarmad Patino MCV (RBC) [Entitic vol] 89.0 fL Normal 81.0-99.0 [facility] Comment on above: Performed By: #### D DAVIDSON, MG, PHOS, CMP, LIPID, URIC #### [facility] [address] [place] [address] Dr. Sarmad Patino MONO # 0.8 103/ul Normal 0.3-0.8 [facility] Comment on above: Performed By: #### D DAVIDSON, MG, PHOS, CMP, LIPID, URIC #### [facility] [address] [place] [address] Dr. Sarmad Patino Monocytes/100 WBC (Bld) 11.9 % Normal 1.7-12.0 [facility] Comment on above: Performed By: #### D DAVIDSON, MG, PHOS, CMP, LIPID, URIC #### [facility] [address] [place] [address] Dr. Sarmad Patino NEUT # 4.6 103/ul Normal 1.4-6.5 [facility] Comment on above: Performed By: #### D DAVIDSON, MG, PHOS, CMP, LIPID, URIC #### [facility] [address] [place] [address] Dr. Sarmad Patino Neutrophils/100 WBC (Bld) 66.4 % Normal 43.0-75.0 [facility] Comment on above: Performed By: #### D DAVIDSON, MG, PHOS, CMP, LIPID, URIC #### [facility] [address] [place] [address] Dr. Sarmad Patino Platelet mean volume (Bld) [Entitic vol] 10.6 fL Normal 9.5-13.5 [facility] Comment on above: Performed By: #### D DAVIDSON, MG, PHOS, CMP, LIPID, URIC #### [facility] [address] [place] [address] Dr. Sarmad Patino PLT 233 103/ul Normal 150-450 [facility] Comment on above: Performed By: #### D DAVIDSON, MG, PHOS, CMP, LIPID, URIC #### [facility] [address] [place] [address] Dr. Sarmad Patino RBC 5.07 106/ul Normal 4.20-5.40 [facility] Comment on above: Performed By: #### D DAVIDSON, MG, PHOS, CMP, LIPID, URIC #### [facility] [address] [address] [address] Sarmad Patino WBC 6.9 103/ul Normal 4.0-11.0 [facility] Comment on above: Performed By: #### D DAVIDSON, MG, PHOS, CMP, LIPID, URIC #### [facility] [address] [place] [address] Dr. Sarmad Patino GLYCOHEMOGLOBIN A1Con 2021 ADA RECOMMENDATION SEE BELOW Normal [facility] Comment on above: Result Comment: ADA RECOMMENDED LIMIT 4.0 - 6.0 ADA THERAPEUTIC TARGET < 7.0 ACTION SUGGESTED > 7.0 Performed By: #### D DAVIDSON, MG, PHOS, CMP, LIPID, URIC #### [facility] [address] [place] [address] Dr. Sarmad Patino Glucose [Mass/Vol] 120 mg/dL Normal [facility] Comment on above: Performed By: #### D DAVIDSON, MG, PHOS, CMP, LIPID, URIC #### [facility] [address] [place] [address] Dr. Sarmad Patino HbA1c (Bld) [Mass fraction] 5.8 % Normal 4.5-6.2 [facility] Comment on above: Performed By: #### D DAVIDSON, MG, PHOS, CMP, LIPID, URIC #### [facility] [address] [place] [address] Dr. Sarmad Patino LIPID PROFILEon 09-10-2021 CHOL-HDL RATIO NORM SEE BELOW Normal [facility] Comment on above: Result Comment: 3.3 - 4.4 LOW RISK 4.4 - 7.1 AVERAGE RISK 7.1 - 11.0 MODERATE RISK >11.0 HIGH RISK Performed By: #### D DAVIDSON, MG, PHOS, CMP, LIPID, URIC #### [facility] [address] [address] [address] Sarmad Patino Cholesterol [Mass/Vol] 150 mg/dL Normal <=200 [facility] Comment on above: Performed By: #### D DAVIDSON, MG, PHOS, CMP, LIPID, URIC #### [facility] [address] [address] [address] Sarmad Patino Cholesterol in HDL [Mass/Vol] 47 mg/dL Normal 40-60 [facility] Comment on above: Performed By: #### D DAVIDSON, MG, PHOS, CMP, LIPID, URIC #### [facility] [address] [place] [address] Dr. Sarmad Patino Cholesterol in LDL [Mass/Vol] 78.4 mg/dL Normal [facility] Comment on above: Performed By: #### D DAVIDSON, MG, PHOS, CMP, LIPID, URIC #### [facility] [address] [address] [address] Sarmad Patino Cholesterol.total/Cho lesterol in HDL [Mass ratio] 3.2 {ratio} Normal [facility] Comment on above: Performed By: #### D DAVIDSON, MG, PHOS, CMP, LIPID, URIC #### [facility] [address] [address] [address] Sarmad Patino HDL NORMAL > or = 60 mg/dl - LO W CARDIOVASCULAR RISK <40 mg/dl - HIGH CARDIOVASCULAR RISK Normal [facility] Comment on above: Performed By: #### D DAVIDSON, MG, PHOS, CMP, LIPID, URIC #### [facility] [address] [address] [address] Sarmad Patino LDL CALC NORMAL SEE BELOW Normal [facility] Comment on above: Result Comment: <100 mg/dl OPTIMAL 100 - 129 mg/dl NEAR OR ABOVE OPTIMAL 130 - 159 mg/dl BORDERLINE HIGH 160 - 189 mg/dl HIGH >190 mg/dl VERY HIGH Performed By: #### D DAVIDSON, MG, PHOS, CMP, LIPID, URIC #### [facility] [address] [address] [address] Sarmad Patino Triglyceride [Mass/Vol] 123 mg/dL Normal <=150 [facility] Comment on above: Performed By: #### D DAVIDSON, MG, PHOS, CMP, LIPID, URIC #### [facility] [address] [place] [address] Dr. Sarmad Patino VLDL CALC 24.6 mg/dL Normal [facility] Comment on above: Performed By: #### D DAVIDSON, MG, PHOS, CMP, LIPID, URIC #### [facility] [address] [place] [address] Dr. Sarmad Patino MAGNESIUMon 09-10-2021 Magnesium [Mass/Vol] 1.5 mg/dL Critically low 1.8-2.4 [facility] Comment on above: Performed By: #### D DAVIDSON, MG, PHOS, CMP, LIPID, URIC #### [facility] [address] [place] [address] Dr. Sarmad Patino PHOSPHORUSon 09-10-2021 Phosphate [Mass/Vol] 3.8 mg/dL Normal 2.6-4.7 [facility] Comment on above: Performed By: #### D DAVIDSON, MG, PHOS, CMP, LIPID, URIC #### [facility] [address] [place] [address] Dr. Sarmad Patino PROF 14(COMP METB)on 022 Albumin [Mass/Vol] 3.4 g/dL Normal 3.4-5.0 [facility] Comment on above: Performed By: #### D DAVIDSON, MG, PHOS, CMP, LIPID, URIC #### [facility] [address] [place] [address] Dr. Sarmad Patino Albumin/Globulin [Mass ratio] 0.9 {ratio} Normal [facility] Comment on above: Performed By: #### D DAVIDSON, MG, PHOS, CMP, LIPID, URIC #### [facility] [address] [place] [address] Dr. Sarmad Patino ALP [Catalytic activity/Vol] 143 U/L Critically high 46-116 [facility] Comment on above: Performed By: #### D DAVIDSON, MG, PHOS, CMP, LIPID, URIC #### [facility] [address] [place] [address] Dr. Sarmad Patino ALT [Catalytic activity/Vol] 19 U/L Normal 14-59 [facility] Comment on above: Performed By: #### D DAVIDSON, MG, PHOS, CMP, LIPID, URIC #### [facility] [address] [place] [address] Dr. Sarmad Patino Anion gap [Moles/Vol] 13.4 mmol/L Normal [facility] Comment on above: Performed By: #### D DAVIDSON, MG, PHOS, CMP, LIPID, URIC #### [facility] [address] [place] [address] Dr. Sarmad Patino AST [Catalytic activity/Vol] 24 U/L Normal 15-37 [facility] Comment on above: Performed By: #### D DAVIDSON, MG, PHOS, CMP, LIPID, URIC #### [facility] [address] [place] [address] Dr. Sarmad Patino Bilirubin [Mass/Vol] 0.4 mg/dL Normal 0.2-1.0 [facility] Comment on above: Performed By: #### D DAVIDSON, MG, PHOS, CMP, LIPID, URIC #### [facility] [address] [place] [address] Dr. Sarmad Patino Calcium [Mass/Vol] 9.3 mg/dL Normal 8.5-10.1 [facility] Comment on above: Performed By: #### D DAVIDSON, MG, PHOS, CMP, LIPID, URIC #### [facility] [address] [place] [address] Dr. Sarmad Patino Chloride [Moles/Vol] 106 mmol/L Normal 98-107 [facility] Comment on above: Performed By: #### D DAVIDSON, MG, PHOS, CMP, LIPID, URIC #### [facility] [address] [place] [address] Dr. Sarmad Patino CO2 [Moles/Vol] 25.5 mmol/L Normal 21.0-32.0 [facility] Comment on above: Performed By: #### D DAVIDSON, MG, PHOS, CMP, LIPID, URIC #### [facility] [address] [address] [address] Sarmad Patino Creatinine [Mass/Vol] 0.85 mg/dL Normal 0.55-1.02 [facility] Comment on above: Performed By: #### D DAVIDSON, MG, PHOS, CMP, LIPID, URIC #### [facility] [address] [place] [address] Dr. Sarmad Patino EGFR-AF LATVIAN >60 Normal >=60 [facility] Comment on above: Performed By: #### D DAVIDSON, MG, PHOS, CMP, LIPID, URIC #### [facility] [address] [place] [address] Dr. Sarmad Patino EGFR-NON AF LATVIAN >60 Normal >=60 [facility] Comment on above: Performed By: #### D DAVIDSON, MG, PHOS, CMP, LIPID, URIC #### [facility] [address] [place] [address] Dr. Sarmad Patino Globulin (S) [Mass/Vol] 3.8 g/dL Normal [facility] Comment on above: Performed By: #### D DAVIDSON, MG, PHOS, CMP, LIPID, URIC #### [facility] [address] [place] [address] Dr. Sarmad Patino Glucose [Mass/Vol] 100 mg/dL Normal 74-106 [facility] Comment on above: Performed By: #### D DAVIDSON, MG, PHOS, CMP, LIPID, URIC #### [facility] [address] [place] [address] Dr. Sarmad Patino Potassium [Moles/Vol] 3.9 mmol/L Normal 3.5-5.1 [facility] Comment on above: Performed By: #### D DAVIDSON, MG, PHOS, CMP, LIPID, URIC #### [facility] [address] [place] [address] Dr. Sarmad Patino Protein [Mass/Vol] 7.2 g/dL Normal 6.4-8.2 [facility] Comment on above: Performed By: #### D DAVIDSON, MG, PHOS, CMP, LIPID, URIC #### [facility] [address] [place], [place] [address] Dr. Sarmad Patino Sodium [Moles/Vol] 141 mmol/L Normal 136-145 [facility] Comment on above: Performed By: #### D DAVIDSON, MG, PHOS, CMP, LIPID, URIC #### [facility] [address] [address] [address] Sarmad Patino Urea nitrogen [Mass/Vol] 16.0 mg/dL Normal 7.0-18.0 [facility] Comment on above: Performed By: #### D DAVIDSON, MG, PHOS, CMP, LIPID, URIC #### [facility] [address] [address] [address] Sarmad Patino Urea nitrogen/Creatinine [Mass ratio] 18.8 mg/mg Normal [facility] Comment on above: Performed By: #### D DAVIDSON, MG, PHOS, CMP, LIPID, URIC #### [facility] [address] [address] [address] Sarmad Patino URIC ACID SERUMon 09-10-2021 Urate [Mass/Vol] 4.8 mg/dL Normal 2.6-6.0 [facility] Comment on above: Performed By: #### D DAVIDSON, MG, PHOS, CMP, LIPID, URIC #### [facility] [address] [place] [address] Dr. Sarmad Patino Urinalysis - AUTOMATEDon Appearance (U) cloudy [employer] Other Bilirubin Ql (U) Negative [employer] Other Color (U) pale yellow [employer] Other Glucose Ql (U) Negative [employer] Other Hemoglobin Ql (U) moderate [employer] Other Ketones Ql (U) Negative [employer] Other Leukocyte esterase Test strip Ql (U) moderate [employer] Other Nitrite Ql (U) Negative [employer] Other pH (U) 7.0 [pH] [employer] Other Protein Ql (U) Negative [employer] Other Specific gravity (U) [Rel density] 1.010 [employer] Other Urobilinogen (U) [Mass/Vol] 0.2 mg/dL [employer] Other Urinalysis - AUTOMATED [employer] Other Urine Cultureon 08-14-2021 Urine Culture 100,000 [employer] Other Urine Culture <16 Susceptible [employer] Other Urine Culture >16 Resistant [employer] Other Urine Culture <4 Susceptible [employer] Other Urine Culture <2 Susceptible [employer] Other Urine Culture <1 Susceptible [employer] Other Urine Culture <0.5 Susceptible [employer] Other Urine Culture <32 Susceptible [employer] Other Urine Culture <2/38 Susceptible [employer] Other Bacteria identified Cx Nom (U) Reason for Exam Dysuria Urine ORGANISM: Klebsiella pneumoniae (O:KLEPNE) [place] Count 100,000 Aerobic SHYLA Charge (NUC86) ---- [...] RESISTANT TO ALL B-LACTAM DRUGS. PERFORMED BY: [place] [address] PATHOLOGIST BUTTING SAW OPERATOR LVOELY COLE M.D. Normal [facility] Comment on above: Performed By: #### C UU #### [facility] [address] [place] [address] *URINE CULTUREon 12-31-2017 Bacteria identified in Urine by Culture Clinical Report: (D) Specimen: URINE Collected: 12/31/2017 13:40 Status: Final Last Updated: 01/04/2018 12:38 ISO (Final) Diphtheroids >100,000 Cfu/Ml 2 Morphologies ISO (Final) Aerococcus urinae 50,000 - 100,000 Cfu/mL Result changed by RFISCHB on 01/04/2018 12:38. The previous result was: ISO (Prelim) Normal [facility] Comment on above: Performed By: #### 4 1000, 22143, 62478, 80881, 02259, 81554 ####[facility] [place] [address], [facility] CBC W/DIFFon 12-25-2017 ABS BASOPHILS 0.0 10*3/uL Normal 0.0-0.2 [facility] Comment on above: Performed By: #### 5 0103 ####[facility] ABS IMM GRANS 0.0 10*3/uL Normal 0.0-0.2 [facility] Comment on above: Performed By: #### 5 0103 ####[facility].[address] ABS NEUTROPHILS 5.0 10*3/uL Normal 1.6-7.6 [facility] Comment on above: Performed By: #### 5 0103 ####[facility] [address] Basophils Auto #/vol (Bld) 0.1 % Normal 0.0-1.0 [facility] Comment on above: Performed By: #### 5 0103 ####[facility].[address] Eosinophils Auto #/vol (Bld) 0.1 10*3/uL Normal 0.0-0.5 [facility] Comment on above: Performed By: #### 5 0103 ####[facility].[address] Eosinophils/100 WBC Auto (Bld) 1.6 % Normal 0.0-6.0 [facility] Comment on above: Performed By: #### 5 0103 ####[facility].[address] Erythrocyte distribution width Auto Ratio (RBC) 14.6 % Normal 11.5-15.0 [facility] Comment on above: Performed By: #### 5 0103 ####[facility].[address] Hematocrit Auto Volume Fraction (Bld) 44.9 % Normal 36.0-45.0 [facility] Comment on above: Performed By: #### 5 0103 ####[facility] [address] Hemoglobin mass conc (Bld) 14.9 g/dL Normal 12.0-15.0 [facility] Comment on above: Performed By: #### 5 0103 ####[address] IMMATURE GRANS 0.4 % Normal 0.0-1.0 [facility] Comment on above: Performed By: #### 5 0103 ####[address] Lymphocytes Auto #/vol (Bld) 1.0 10*3/uL Low 1.2-4.0 [facility] Comment on above: Performed By: #### 5 0103 ####[address] Lymphocytes/100 WBC Auto (Bld) 14.9 % Low 20.0-45.0 [facility] Comment on above: Performed By: #### 5 0103 ####[address] MCH Auto Entitic mass (RBC) 28.8 pg Normal 27.0-33.0 [facility] Comment on above: Performed By: #### 5 0103 ####[address] MCHC Auto mass conc (RBC) 33.2 g/dL Normal 32.0-35.0 [facility] Comment on above: Performed By: #### 5 0103 ####[address] MCV Auto Entitic volume (RBC) 86.7 fL Normal 82.0-98.0 [facility] Comment on above: Performed By: #### 5 0103 ####[address] [place] [address], [facility] Monocytes Auto #/vol (Bld) 0.7 10*3/uL Normal 0.1-1.0 [facility] Comment on above: Performed By: #### 5 0103 ####[facility] [place] [address], [facility] MONOS 10.6 % Normal 5.0-12.0 [facility] Comment on above: Performed By: #### 5 0103 ####[facility] [place] [address], [facility] Neutrophils/100 WBC Auto (Bld) 72.4 % High 40.0-72.0 [facility] Comment on above: Performed By: #### 102 ####[facility].[address] Nucleated RBC/100 WBC Ratio (Bld) 0 % Normal 0-0 [facility] Comment on above: Performed By: #### 010 ####[facility] [place] [address], [facility] PLAT CNT 203 10*3/uL Normal 150-[address] [facility] Comment on above: Performed By: #### 3 ####[facility].[address] RBC Auto #/vol (Bld) 5.18 10*6/uL High 3.80-5.00 [facility] Comment on above: Performed By: #### 0103 ####[facility] [place] [address], [facility] WBC Auto #/vol (Bld) 6.90 10*3/uL Normal 4.00-10.60 [facility] Comment on above: Performed By: #### 3 ####[facility] COMP METABOLIC PANELon 12-25 Albumin mass conc 4.3 g/dL Normal 3.5-5.7 [facility] Comment on above: Performed By: #### 4 1000, 96479, 08528, 21070, 38495, 86443 ####[facility] [place] [address], [facility] ALKALINE PHOSPH 118 IU/L High 34-104 [facility] Comment on above: Performed By: #### 4 1000, 63721, 86576, 61824, 79840, 33014 ####[facility] ALT enzyme act/vol 11 U/L Normal 7-52 [facility] Comment on above: Performed By: #### 4 1000, 35893, 44435, 45574, 14633, 66465 ####[facility] AST enzyme act/vol 17 U/L Normal 13-39 [facility] Comment on above: Performed By: #### 4 1000, 57964, 23904, 86914, 51715, 51727 ####[facility] [place] [address], [facility] Bilirubin mass conc 0.4 mg/dL Normal 0.3-1.0 [facility] Comment on above: Performed By: #### 4 1000, 93060, 62840, 55786, 34073, 98862 ####[facility] [place] [address], [facility] Calcium mass conc 9.8 mg/dL Normal 8.6-10.3 [facility] Comment on above: Performed By: #### 4 1000, 33665, 65577, 54173, 14296, 50745 ####[facility] [place] [address], [place] Chloride molar conc 104 mmol/L Normal 98-107 [facility] Comment on above: Performed By: #### 4 1000, 22288, 35479, 89797, 36139, 72592 ####[facility] [place] [address], [place] CO2 molar conc 27 mmol/L Normal 21-31 [facility] Comment on above: Performed By: #### 4 1000, 91671, 26906, 99503, 40567, 21438 ####[facility] [place] [address], [facility] Creatinine mass conc 0.76 mg/dL Normal 0.60-1.20 [facility] Comment on above: Performed By: #### 4 1000, 02091, 42553, 54605, 61490, 90713 ####[facility] [place] [address], [place] GFR/1.73 sq M predicted among blacks MDRD vol rate/area (S/P/Bld) mL/min/{1.73_m2} Normal >[address] [facility] Comment on above: Performed By: #### 4 1000, 19397, 98939, 08016, 14296, 38059 ####[facility] [place] [address], [place] GFR/1.73 sq M predicted among non-blacks MDRD vol rate/area (S/P/Bld) mL/min/{1.73_m2} Normal >[address] [facility] Comment on above: Performed By: #### 4 1000, 36552, 74962, 87145, 17638, 73633 ####[facility] [place] [address], [place] Glucose mass conc 94 mg/dL Normal 70-100 [facility] Comment on above: Performed By: #### 4 1000, 52261, 91218, 73873, 91956, 52010 ####[facility] [place] [address], [facility] Potassium molar conc 3.9 mmol/L Normal 3.5-5.1 [facility] Comment on above: Performed By: #### 4 1000, 27542, 50793, 97354, 20012, 48012 ####[facility] Protein mass conc 7.2 g/dL Normal 6.0-8.3 [facility] Comment on above: Performed By: #### 4 1000, 67168, 11212, 43560, 45572, 38323 ####[facility] [place] [address], [facility] Sodium molar conc 140 mmol/L Normal 136-145 [facility] Comment on above: Performed By: #### 4 1000, 92234, 30358, 18334, 14221, 99618 ####[facility] Urea nitrogen mass conc 15 mg/dL Normal 7-25 [facility] Comment on above: Performed By: #### 4 1000, 23984, 42346, 07943, 26844, 42269 ####[facility] DIRECT BILIon 12-25-2017 Bilirubin.direct mass conc 0.1 mg/dL Normal 0.0-0.2 [facility] Comment on above: Performed By: #### 4 1000, 88421, 59942, 16640, 89442, 39538 ####[facility] EVEROLIMUS 17775cl 8 EVEROLIMUS 4.7 ng/mL Normal [facility] Comment on above: Result Comment: Ther [...] the transplantcenter.Test developed and characteristics determined by [facility]. See Compliance Statement B: [facility]/CSPerformed by [employer],[address] [place] [id number] tqw.[facility], Leonid Antonio MD - Lab. Director LIPID PROFILEon 12-25-2017 Cholesterol in HDL mass conc 51 mg/dL Normal 23-92 [facility] Comment on above: Result Comment: Slig ht variation in normal range could be due to gender and/or age.HDL CHOLESTEROL REFERENCE RANGE:20 years and older Cardiovascular Risk> or =60 mg/dL [id number] TO 59 mg/dL Low Risk<40 mg/dL High Risk Performed By: #### 4 5506, 86648, 97677, 23166, 71265, 48373 ####[facility] [place] [address], [facility] Cholesterol in LDL mass conc 58 mg/dL Normal 0-130 [facility] Comment on above: Result Comment: LDL IS A CALCULATIONLDL IS ONLY VALID IF THE TRIG IS LESS THAN 400. Performed By: #### 4 5506, 96103, 12089, 45059, 82929, 42094 ####[facility].[address] Cholesterol mass conc 122 mg/dL Normal 120-200 [facility] Comment on above: Result Comment: CHOL ESTEROL REFERENCE RANGE:20 YEARS AND OLDER CARDIOVASCULAR RISKLess than 200 mg/dl Low [id number] to 239 mg/dl Borderline [id number] mg/dl and greater High Risk Performed By: #### 4 5506, 66081, 67697, 03636, 23124, 96352 ####[facility] [place] [address], [facility] Cholesterol.total/Cho lesterol in HDL mass ratio 2.4 {ratio} Normal .0-4.5 [facility] Comment on above: Performed By: #### 4 5506, 76165, 57326, 54639, 44703, 17129 ####[facility] NON-HDL CHOLESTEROL 71 mg/dL Normal [facility] Comment on above: Performed By: #### 4 5506, 55536, 80730, 00194, 82492, 49234 ####[facility].[address] Triglyceride mass conc 65 mg/dL Normal 40-149 [facility] Comment on above: Result Comment: TRIG LYCERIDE REFERENCE RANGE:20 YEARS AND OLDER CARDIOVASCULAR RISKLESS THAN 150 mg/dl LOW [id number] TO 199 mg/dl BORDERLINE [id number] mg/dl AND GREATER HIGH RISK Performed By: #### 4 5506, 76712, 45820, 48561, 88540, 76621 ####[facility] [place] [address], [facility] VLDL CHOL 13 mg/dL Normal 0-40 [facility] Comment on above: Performed By: #### 4 5506, 62010, 23452, 09361, 79533, 32482 ####[facility] [place] [address], [facility] MAGNESIUM BLOODon 12-25-2017 Magnesium mass conc 1.8 mg/dL Low 1.9-2.7 [facility] Comment on above: Performed By: #### 4 1000, 27713, 68983, 61728, 73613, 99569 ####[facility].[address] PHOSPHORUS BLOODon 8 Phosphate mass conc 3.4 mg/dL Normal 2.5-5.0 [facility] Comment on above: Performed By: #### 4 5506, 26428, 98012, 33144, 07152, 99980 ####[facility].[address] TACROLIMUSon 12-25-2017 Tacrolimus mass conc (Bld) 6.4 ng/mL Normal 5.0-20.0 [facility] Comment on above: Result Comment: The [employer] PSYCHOPAEDIC NURSE Tacrolimus assay is a delayed one-step immunoassayfor the quantitative determination of tacrolimus in human whole bloodusing the chemiluminescent microparticle immunoassay (CMIA) technologywith flexible assay protocols, referred to as Chemiflex. Performed By: #### 4 1000, 60162, 61140, 59414, 11756, 98812 ####[facility] [place] [address], [facility] URIC ACID BLOODon 12-25-2017 Urate mass conc 4.7 mg/dL Normal 2.3-6.6 The [facility] Comment on above: Performed By: #### 4 5506, 55270, 94857, 80455, 10046, 56146 ####[facility] [place] [address], [facility] CBC W/DIFFon 10-30-2017 ABS BASOPHILS 0.0 10*3/uL Normal 0.0-0.2 [facility] Comment on above: Performed By: #### 4 6447, 61289 ####[facility].[address] ABS IMM GRANS 0.0 10*3/uL Normal 0.0-0.2 [facility] Comment on above: Performed By: #### 4 7991, 43040 ####[facility] [address] ABS NEUTROPHILS 4.9 10*3/uL Normal 1.6-7.6 The [facility] Comment on above: Performed By: #### 4 6621, 45069 ####[facility].[address] Basophils Auto #/vol (Bld) 0.1 % Normal 0.0-1.0 [facility] Comment on above: Performed By: #### 4 8755, 19408 ####[address] Eosinophils Auto #/vol (Bld) 0.1 10*3/uL Normal 0.0-0.5 [facility] Comment on above: Performed By: #### 9 2567, 22042 ####[facility].[address] Eosinophils/100 WBC Auto (Bld) 1.4 % Normal 0.0-6.0 [facility] Comment on above: Performed By: #### 4 1152, 71654 ####[facility].[address] Erythrocyte distribution width Auto Ratio (RBC) 14.6 % Normal 11.5-15.0 [facility] Comment on above: Performed By: #### 6 9836, 27424 ####[place] [address] [facility].[address] Hematocrit Auto Volume Fraction (Bld) 46.8 % High 36.0-45.0 [facility] Comment on above: Performed By: #### 8 0685, 31069 ####[facility] [address] Hemoglobin mass conc (Bld) 15.1 g/dL High 12.0-15.0 [facility] Comment on above: Performed By: #### 4 8747, 24310 ####[facility] [address] IMMATURE GRANS 0.4 % Normal 0.0-1.0 [facility] Comment on above: Performed By: #### 4 4147, 06230 ####[address] Lymphocytes Auto #/vol (Bld) 1.2 10*3/uL Normal 1.2-4.0 [facility] Comment on above: Performed By: #### 4 9680, 86070 ####[address] Lymphocytes/100 WBC Auto (Bld) 16.6 % Low 20.0-45.0 [facility] Comment on above: Performed By: #### 4 0018, 11875 ####[address] MCH Auto Entitic mass (RBC) 29.0 pg Normal 27.0-33.0 [facility] Comment on above: Performed By: #### 4 2485, 45456 ####[place] [address] MCHC Auto mass conc (RBC) 32.3 g/dL Normal 32.0-35.0 [facility] Comment on above: Performed By: #### 4 1824, 62238 ####[place] [address] [address] MCV Auto Entitic volume (RBC) 89.8 fL Normal 82.0-98.0 [facility] Comment on above: Performed By: #### 4 6447, 70151 ####[facility] [place] [address], [facility] Monocytes Auto #/vol (Bld) 0.8 10*3/uL Normal 0.1-1.0 [facility] Comment on above: Performed By: #### 4 6447, 44925 ####[facility] [place] [address], [facility] MONOS 11.9 % Normal 5.0-12.0 [facility] Comment on above: Performed By: #### 4 6447, 37000 ####[facility] [place] [address], [facility] Neutrophils/100 WBC Auto (Bld) 69.6 % Normal 40.0-72.0 [facility] Comment on above: Performed By: #### 4 4347, 28185 ####[facility] Nucleated RBC/100 WBC Ratio (Bld) 0 % Normal 0-0 [facility] Comment on above: Performed By: #### 4 7647, 11310 ####[facility] [place] [address], [facility] PLAT CNT 200 10*3/uL Normal 150-[address] [facility] Comment on above: Performed By: #### 4 6147, 50933 ####[facility] [place] [address], [facility] RBC Auto #/vol (Bld) 5.21 10*6/uL High 3.80-5.00 [facility] Comment on above: Performed By: #### 4 6447, 52475 ####[facility] [place] [address], [facility] WBC Auto #/vol (Bld) 7.04 10*3/uL Normal 4.00-10.60 [facility] Comment on above: Performed By: #### 4 6447, 43893 ####[facility] [place] [address], [facility] COMP METABOLIC PANELon 10-30 Albumin mass conc 4.1 g/dL Normal 3.5-5.7 [facility] Comment on above: Performed By: #### 4 6447, 36186 ####[facility] [place] [address], [facility] ALKALINE PHOSPH 114 IU/L High 34-104 The [facility] Comment on above: Performed By: #### 4 6447, 20900 ####[facility] [place] [address], [facility] ALT enzyme act/vol 16 U/L Normal 7-52 [facility] Comment on above: Performed By: #### 4 9747, 91458 ####[facility] AST enzyme act/vol 18 U/L Normal 13-39 The [facility] Comment on above: Performed By: #### 4 6447, 67887 ####[facility] [place] [address], [facility] Bilirubin mass conc 0.4 mg/dL Normal 0.3-1.0 [facility] Comment on above: Performed By: #### 4 6447, 76269 ####[facility] [place] [address], [facility] Calcium mass conc 9.7 mg/dL Normal 8.6-10.3 [facility] Comment on above: Performed By: #### 4 6447, 66147 ####[address] [place] [address], [facility] Chloride molar conc 105 mmol/L Normal 98-107 [facility] Comment on above: Performed By: #### 4 1342, 13336 ####[facility] [place] [address], [facility] CO2 molar conc 28 mmol/L Normal 21-31 [facility] Comment on above: Performed By: #### 4 9328, 52297 ####[facility] [place] [address], [facility] Creatinine mass conc 0.82 mg/dL Normal 0.60-1.20 [facility] Comment on above: Performed By: #### 4 5116, 25976 ####[place] [address] [place] [address], [facility] GFR/1.73 sq M predicted among blacks MDRD vol rate/area (S/P/Bld) mL/min/{1.73_m2} Normal >[address] [facility] Comment on above: Performed By: #### 4 8672, 62562 ####[facility] [place] [address], [facility] GFR/1.73 sq M predicted among non-blacks MDRD vol rate/area (S/P/Bld) mL/min/{1.73_m2} Normal >[address] [facility] Comment on above: Performed By: #### 4 4734, 34920 ####[facility] [place] [address], [facility] Glucose mass conc 90 mg/dL Normal 70-100 [facility] Comment on above: Performed By: #### 4 6187, 23732 ####[facility] [place] [address], [facility] Potassium molar conc 4.1 mmol/L Normal 3.5-5.1 [facility] Comment on above: Performed By: #### 7 1879, 44786 ####[facility] Protein mass conc 6.9 g/dL Normal 6.0-8.3 [facility] Comment on above: Performed By: #### 4 6447, 65273 ####[facility].[address] Sodium molar conc 138 mmol/L Normal 136-145 [facility] Comment on above: Performed By: #### 4 6447, 33981 ####[facility].[address] Urea nitrogen mass conc 16 mg/dL Normal 7-25 [facility] Comment on above: Performed By: #### 4 6447, 98709 ####[place] [address] [facility].[address] DIRECT BILIon 10-30-2017 Bilirubin.direct mass conc 0.0 mg/dL Normal 0.0-0.2 [facility] Comment on above: Performed By: #### 4 5506, 42915, 56689, 73715, 76094, 96405 ####[facility].[address] EVEROLIMUS 47486xm 8 EVEROLIMUS 6.0 ng/mL Normal [facility] Comment on above: Result Comment: Ther [...] the transplantcenter.Test developed and characteristics determined by [facility]. See Compliance Statement B: Eye[facility]/CSPerformed by [employer],[address] [place] [address] qyl.[facility], Leoind Antonio MD - Lab. Director LIPID PROFILEon 10-30-2017 Cholesterol in HDL mass conc 50 mg/dL Normal 23-92 [facility] Comment on above: Result Comment: Slig ht variation in normal range could be due to gender and/or age.HDL CHOLESTEROL REFERENCE RANGE:20 years and older Cardiovascular Risk> or =60 mg/dL Gyubsvzhn98 TO 59 mg/dL Low Risk<40 mg/dL High Risk Performed By: #### 4 5506, 81700, 84162, 98119, 11210, 72720 ####[facility] [place] [address], [place] Cholesterol in LDL mass conc 85 mg/dL Normal 0-130 [facility] Comment on above: Result Comment: LDL IS A CALCULATIONLDL IS ONLY VALID IF THE TRIG IS LESS THAN 400. Performed By: #### 4 5506, 14831, 59723, 33889, 19305, 67141 ####[facility] [place] [address], [place] Cholesterol mass conc 152 mg/dL Normal 120-200 [facility] Comment on above: Result Comment: CHOL ESTEROL REFERENCE RANGE:20 YEARS AND OLDER CARDIOVASCULAR RISKLess than 200 mg/dl Low Jwdb792 to 239 mg/dl Borderline Otdx776 mg/dl and greater High Risk Performed By: #### 4 5506, 51609, 50992, 67292, 19875, 18501 ####[facility] [place] [address], [place] Cholesterol.total/Cho lesterol in HDL mass ratio 3.0 {ratio} Normal .0-4.5 [facility] Comment on above: Performed By: #### 4 5506, 38756, 00298, 33697, 63037, 50725 ####[facility] NON-HDL CHOLESTEROL 102 mg/dL Normal [facility] Comment on above: Performed By: #### 4 5506, 72820, 61864, 96761, 63997, 35629 ####[facility] Triglyceride mass conc 87 mg/dL Normal 40-149 [facility] Comment on above: Result Comment: TRIG LYCERIDE REFERENCE RANGE:20 YEARS AND OLDER CARDIOVASCULAR RISKLESS THAN 150 mg/dl LOW [id number] TO 199 mg/dl BORDERLINE NIGR099 mg/dl AND GREATER HIGH RISK Performed By: #### 4 5506, 25529, 02122, 30986, 96661, 55210 ####[facility] VLDL CHOL 17 mg/dL Normal 0-40 [facility] Comment on above: Performed By: #### 4 5506, 97859, 36927, 30020, 94581, 91515 ####[facility] MAGNESIUM BLOODon 10-30-2017 Magnesium mass conc 1.9 mg/dL Normal 1.9-2.7 [facility] Comment on above: Performed By: #### 4 5506, 24121, 76527, 51080, 36694, 26771 ####[facility] [place] [address], [facility] PHOSPHORUS BLOODon 8 Phosphate mass conc 3.7 mg/dL Normal 2.5-5.0 [facility] Comment on above: Performed By: #### 4 5506, 39814, 37219, 39288, 80121, 72461 ####[facility] [address] TACROLIMUSon 10-30-2017 Tacrolimus mass conc (Bld) 7.1 ng/mL Normal 5.0-20.0 [facility] Comment on above: Result Comment: The [facility] Tacrolimus assay is a delayed one-step immunoassayfor the quantitative determination of tacrolimus in human whole bloodusing the chemiluminescent microparticle immunoassay (CMIA) technologywith flexible assay protocols, referred to as Chemiflex. Performed By: #### 9 9914 ####[address] URIC ACID BLOODon 10-30-2017 Urate mass conc 4.6 mg/dL Normal 2.3-6.6 [facility] Comment on above: Performed By: #### 4 6447, 69151 ####[address] CBC W/DIFFon 10-23-2017 ABS BASOPHILS 0.0 10*3/uL Normal 0.0-0.2 The [facility] Comment on above: Performed By: #### 4 8547, 96839 ####[place] [address] ABS IMM GRANS 0.1 10*3/uL Normal 0.0-0.2 [facility] Comment on above: Performed By: #### 4 6447, 45139 ####[place] [address] ABS NEUTROPHILS 5.8 10*3/uL Normal 1.6-7.6 The [facility] Comment on above: Performed By: #### 4 6447, 43550 ####[address] Basophils Auto #/vol (Bld) 0.2 % Normal 0.0-1.0 [facility] Comment on above: Performed By: #### 4 3100, 84047 ####[facility].[address] Eosinophils Auto #/vol (Bld) 0.1 10*3/uL Normal 0.0-0.5 [facility] Comment on above: Performed By: #### 4 3759, 93644 ####[facility].[address] Eosinophils/100 WBC Auto (Bld) 0.7 % Normal 0.0-6.0 [facility] Comment on above: Performed By: #### 4 3809, 09289 ####[address] Erythrocyte distribution width Auto Ratio (RBC) 14.6 % Normal 11.5-15.0 [facility] Comment on above: Performed By: #### 4 1552, 38944 ####[address] Hematocrit Auto Volume Fraction (Bld) 44.2 % Normal 36.0-45.0 [facility] Comment on above: Performed By: #### 4 7986, 27221 ####[place] [address] [facility].[address] Hemoglobin mass conc (Bld) 14.2 g/dL Normal 12.0-15.0 [facility] Comment on above: Performed By: #### 4 5696, 94686 ####[place] [address] [facility].[address] IMMATURE GRANS 1.4 % High 0.0-1.0 [facility] Comment on above: Performed By: #### 5 6192, 67391 ####[address] Lymphocytes Auto #/vol (Bld) 2.1 10*3/uL Normal 1.2-4.0 [facility] Comment on above: Performed By: #### 4 9324, 83176 ####[facility] [place] [address] Lymphocytes/100 WBC Auto (Bld) 22.5 % Normal 20.0-45.0 [facility] Comment on above: Performed By: #### 4 1700, 15883 ####[facility] [address] MCH Auto Entitic mass (RBC) 28.5 pg Normal 27.0-33.0 [facility] Comment on above: Performed By: #### 4 2666, 70876 ####[address] MCHC Auto mass conc (RBC) 32.1 g/dL Normal 32.0-35.0 [facility] Comment on above: Performed By: #### 4 5879, 31253 ####[address] MCV Auto Entitic volume (RBC) 88.8 fL Normal 82.0-98.0 [facility] Comment on above: Performed By: #### 4 3808, 85249 ####[facility] [place] [address] Monocytes Auto #/vol (Bld) 1.1 10*3/uL High 0.1-1.0 [facility] Comment on above: Performed By: #### 4 8193, 81348 ####[address] MONOS 12.0 % Normal 5.0-12.0 [facility] Comment on above: Performed By: #### 8 6248, 76663 ####[facility] Neutrophils/100 WBC Auto (Bld) 63.2 % Normal 40.0-72.0 [facility] Comment on above: Performed By: #### 4 6447, 98970 ####[facility] Nucleated RBC/100 WBC Ratio (Bld) 0 % Normal 0-0 [facility] Comment on above: Performed By: #### 4 6447, 61520 ####[facility] [place] [address], [facility] PLAT CNT 241 10*3/uL Normal 150-[address] [facility] Comment on above: Performed By: #### 4 6447, 87280 ####[place] [address] [facility].[address] RBC Auto #/vol (Bld) 4.98 10*6/uL Normal 3.80-5.00 [facility] Comment on above: Performed By: #### 4 6447, 68758 ####[facility].[address] WBC Auto #/vol (Bld) 9.14 10*3/uL Normal 4.00-10.60 [facility] Comment on above: Performed By: #### 4 6447, 75180 ####[facility] COMP METABOLIC PANELon 10-23 Albumin mass conc 3.8 g/dL Normal 3.5-5.7 [facility] Comment on above: Performed By: #### 4 6447, 70800 ####[facility] [place] [address], [facility] ALKALINE PHOSPH 96 IU/L Normal 34-104 [facility] Comment on above: Performed By: #### 4 6447, 38934 ####[facility] [place] [address], [place] ALT enzyme act/vol 15 U/L Normal 7-52 [facility] Comment on above: Performed By: #### 2 9347, 07000 ####[facility] [place] [address], [place] AST enzyme act/vol 13 U/L Normal 13-39 [facility] Comment on above: Performed By: #### 4 6469, 91176 ####[facility] [place] [address], [place] Bilirubin mass conc 0.4 mg/dL Normal 0.3-1.0 [facility] Comment on above: Performed By: #### 3 7947, 76449 ####[facility] [place] [address], [facility] Calcium mass conc 9.2 mg/dL Normal 8.6-10.3 [facility] Comment on above: Performed By: #### 0 2423, 99222 ####[facility] [place] [address], [place] Chloride molar conc 102 mmol/L Normal 98-107 [facility] Comment on above: Performed By: #### 9 0548, 92489 ####[facility] [place] [address], [place] CO2 molar conc 29 mmol/L Normal 21-31 [facility] Comment on above: Performed By: #### 8 1152, 64642 ####[facility] [place] [address], [place] Creatinine mass conc 0.80 mg/dL Normal 0.60-1.20 [facility] Comment on above: Performed By: #### 4 7472, 85134 ####[facility] [place] [address], [place] GFR/1.73 sq M predicted among blacks MDRD vol rate/area (S/P/Bld) mL/min/{1.73_m2} Normal >[address] [facility] Comment on above: Performed By: #### 4 2574, 75646 ####[facility] [place] [address], [place] GFR/1.73 sq M predicted among non-blacks MDRD vol rate/area (S/P/Bld) mL/min/{1.73_m2} Normal >[address] [facility] Comment on above: Performed By: #### 4 6233, 51934 ####[facility] [place] [address], [facility] Glucose mass conc 85 mg/dL Normal 70-100 [facility] Comment on above: Performed By: #### 8 1908, 46211 ####[facility] [place] [address], [facility] Potassium molar conc 3.3 mmol/L Low 3.5-5.1 [facility] Comment on above: Performed By: #### 3 5163, 62958 ####[facility] [place] [address], [facility] Protein mass conc 6.5 g/dL Normal 6.0-8.3 [facility] Comment on above: Performed By: #### 2 7406, 07216 ####[facility] [place] [address], [place] Sodium molar conc 139 mmol/L Normal 136-145 [facility] Comment on above: Performed By: #### 7 6761, 45749 ####[facility] [place] [address], [place] Urea nitrogen mass conc 18 mg/dL Normal 7-25 [facility] Comment on above: Performed By: #### 4 6447, 98787 ####[facility] DIRECT BILIon 10-23-2017 Bilirubin.direct mass conc 0.1 mg/dL Normal 0.0-0.2 [facility] Comment on above: Performed By: #### 4 6447, 27015 ####[facility] EVEROLIMUS 46580nl 8 EVEROLIMUS 4.0 ng/mL Normal [facility] Comment on above: Result Comment: Ther [...] the transplantcenter.Test developed and characteristics determined by [facility]. See Compliance Statement B: [email or web address]/[email or web address] by [employer],[address] [place] [address] lly.[facility], Leonid Antonio MD - Lab. Director LIPID PROFILEon 10-23-2017 Cholesterol in HDL mass conc 53 mg/dL Normal 23-92 [facility] Comment on above: Result Comment: Slig ht variation in normal range could be due to gender and/or age.HDL CHOLESTEROL REFERENCE RANGE:20 years and older Cardiovascular Risk> or =60 mg/dL Ooctzitep87 TO 59 mg/dL Low Risk<40 mg/dL High Risk Performed By: #### 4 5060, 03940 ####[facility] [place] [address], [facility] Cholesterol in LDL mass conc 68 mg/dL Normal 0-130 [facility] Comment on above: Result Comment: LDL IS A CALCULATIONLDL IS ONLY VALID IF THE TRIG IS LESS THAN 400. Performed By: #### 4 0670, 67139 ####[facility] [place] [address], [facility] Cholesterol mass conc 135 mg/dL Normal 120-200 [facility] Comment on above: Result Comment: CHOL ESTEROL REFERENCE RANGE:20 YEARS AND OLDER CARDIOVASCULAR RISKLess than 200 mg/dl Low Yczo063 to 239 mg/dl Borderline Izse771 mg/dl and greater High Risk Performed By: #### 6 9503, 54175 ####[facility] [place] [address], [facility] Cholesterol.total/Cho lesterol in HDL mass ratio 2.5 {ratio} Normal .0-4.5 [facility] Comment on above: Performed By: #### 3 6984, 91119 ####[facility] [place] [address], [facility] NON-HDL CHOLESTEROL 82 mg/dL Normal [facility] Comment on above: Performed By: #### 4 7393, 65256 ####[facility] [place] [address], [place] Triglyceride mass conc 72 mg/dL Normal 40-149 [facility] Comment on above: Result Comment: TRIG LYCERIDE REFERENCE RANGE:20 YEARS AND OLDER CARDIOVASCULAR RISKLESS THAN 150 mg/dl LOW EXTO386 TO 199 mg/dl BORDERLINE XOPC321 mg/dl AND GREATER HIGH RISK Performed By: #### 1 0534, 40545 ####[facility] [address] VLDL CHOL 14 mg/dL Normal 0-40 [facility] Comment on above: Performed By: #### 4 6447, 75978 ####[address] MAGNESIUM BLOODon 10-23-2017 Magnesium mass conc 1.8 mg/dL Low 1.9-2.7 [facility] Comment on above: Performed By: #### 4 6447, 40185 ####[address] PHOSPHORUS BLOODon 8 Phosphate mass conc 3.7 mg/dL Normal 2.5-5.0 [facility] Comment on above: Performed By: #### 4 6447, 12469 ####[address] TACROLIMUSon 10-23-2017 Tacrolimus mass conc (Bld) 2.6 ng/mL Low 5.0-20.0 [facility] Comment on above: Result Comment: The [facility] Tacrolimus assay is a delayed one-step immunoassayfor the quantitative determination of tacrolimus in human whole bloodusing the chemiluminescent microparticle immunoassay (CMIA) technologywith flexible assay protocols, referred to as Chemiflex. Performed By: #### 4 6447, 60412 ####[place] [address] URIC ACID BLOODon 10-23-2017 Urate mass conc 4.3 mg/dL Normal 2.3-6.6 The [facility] Comment on above: Performed By: #### 4 6447, 71770 ####[address] CBC W/DIFFon 09-25-2017 ABS BASOPHILS 0.0 10*3/uL Normal 0.0-0.2 [facility] Comment on above: Performed By: #### 4 1000, 71565, 16717, 00868, 47195, 71069 ####[facility].[address] ABS IMM GRANS 0.0 10*3/uL Normal 0.0-0.2 [facility] Comment on above: Performed By: #### 4 1000, 14237, 41452, 58097, 74208, 09875 ####[facility].[address] ABS NEUTROPHILS 4.4 10*3/uL Normal 1.6-7.6 [facility] Comment on above: Performed By: #### 4 1000, 10551, 22870, 47134, 64119, 30944 ####[facility].[address] Basophils Auto #/vol (Bld) 0.2 % Normal 0.0-1.0 [facility] Comment on above: Performed By: #### 4 1000, 36252, 03389, 88750, 62603, 88110 ####[facility].[address] Eosinophils Auto #/vol (Bld) 0.1 10*3/uL Normal 0.0-0.5 [facility] Comment on above: Performed By: #### 4 1000, 69251, 82574, 83272, 87257, 62632 ####[facility].[address] Eosinophils/100 WBC Auto (Bld) 2.2 % Normal 0.0-6.0 [facility] Comment on above: Performed By: #### 4 1000, 48382, 32516, 78313, 09534, 11947 ####[facility].[address] Erythrocyte distribution width Auto Ratio (RBC) 14.0 % Normal 11.5-15.0 [facility] Comment on above: Performed By: #### 4 1000, 09904, 58436, 41203, 11256, 93545 ####[facility].[address] Hematocrit Auto Volume Fraction (Bld) 44.8 % Normal 36.0-45.0 [facility] Comment on above: Performed By: #### 4 1000, 66745, 12385, 58384, 21092, 72722 ####[facility].[address] Hemoglobin mass conc (Bld) 14.5 g/dL Normal 12.0-15.0 [facility] Comment on above: Performed By: #### 4 1000, 24152, 17859, 96156, 68936, 46322 ####[facility].[address] IMMATURE GRANS 0.3 % Normal 0.0-1.0 [facility] Comment on above: Performed By: #### 4 1000, 21031, 89954, 10008, 47200, 42566 ####[facility].[address] Lymphocytes Auto #/vol (Bld) 1.1 10*3/uL Low 1.2-4.0 [facility] Comment on above: Performed By: #### 4 1000, 82777, 36522, 16199, 82429, 69383 ####[facility].[address] Lymphocytes/100 WBC Auto (Bld) 17.0 % Low 20.0-45.0 [facility] Comment on above: Performed By: #### 4 1000, 69480, 43223, 06323, 80828, 35951 ####[facility].[address] MCH Auto Entitic mass (RBC) 28.6 pg Normal 27.0-33.0 [facility] Comment on above: Performed By: #### 4 1000, 26038, 41493, 35209, 15812, 79516 ####[facility].[address] MCHC Auto mass conc (RBC) 32.4 g/dL Normal 32.0-35.0 [facility] Comment on above: Performed By: #### 4 1000, 89930, 16008, 56279, 01576, 92098 ####[facility] [address] MCV Auto Entitic volume (RBC) 88.4 fL Normal 82.0-98.0 [facility] Comment on above: Performed By: #### 4 1000, 36733, 04627, 14187, 73087, 54653 ####[facility] Monocytes Auto #/vol (Bld) 0.7 10*3/uL Normal 0.1-1.0 [facility] Comment on above: Performed By: #### 4 1000, 60669, 36626, 92447, 32010, 12024 ####[facility] [address] MONOS 11.5 % Normal 5.0-12.0 [facility] Comment on above: Performed By: #### 4 1000, 26378, 31428, 20589, 84343, 89567 ####[facility] [address] Neutrophils/100 WBC Auto (Bld) 68.8 % Normal 40.0-72.0 [facility] Comment on above: Performed By: #### 4 1000, 59177, 62815, 56063, 27096, 63368 ####[facility].[address] Nucleated RBC/100 WBC Ratio (Bld) 0 % Normal 0-0 [facility] Comment on above: Performed By: #### 4 1000, 05168, 67182, 35931, 72254, 68528 ####[facility].[address] PLAT CNT 212 10*3/uL Normal 150-400 [facility] Comment on above: Performed By: #### 4 1000, 94390, 77463, 90635, 20775, 03797 ####[place] [address] [facility].[address] RBC Auto #/vol (Bld) 5.07 10*6/uL High 3.80-5.00 [facility] Comment on above: Performed By: #### 4 1000, 92478, 42290, 59696, 12852, 10082 ####[place] [address] [facility].[address] WBC Auto #/vol (Bld) 6.34 10*3/uL Normal 4.00-10.60 [facility] Comment on above: Performed By: #### 4 1000, 09544, 67516, 60162, 39924, 26531 ####[address] COMP METABOLIC PANELon 09-25 Albumin mass conc 4.0 g/dL Normal 3.5-5.7 [facility] Comment on above: Performed By: #### 4 6399, 25957 ####[address] ALKALINE PHOSPH 112 IU/L High 34-104 [facility] Comment on above: Performed By: #### 4 9444, 67008 ####[address] [place] [address], [facility] ALT enzyme act/vol 11 U/L Normal 7-52 [facility] Comment on above: Performed By: #### 2 8571, 11264 ####[facility] [place] [address], [place] AST enzyme act/vol 17 U/L Normal 13-39 The [facility] Comment on above: Performed By: #### 4 8444, 50427 ####[facility] [place] [address], [place] Bilirubin mass conc 0.5 mg/dL Normal 0.3-1.0 [facility] Comment on above: Performed By: #### 2 3237, 58749 ####[facility] [place] [address], [place] Calcium mass conc 9.6 mg/dL Normal 8.6-10.3 [facility] Comment on above: Performed By: #### 1 3247, 49021 ####[facility] [place] [address], [place] Chloride molar conc 104 mmol/L Normal 98-107 [facility] Comment on above: Performed By: #### 1 3843, 45075 ####[facility] [place] [address], [place] CO2 molar conc 28 mmol/L Normal 21-31 [facility] Comment on above: Performed By: #### 4 3914, 83261 ####[facility] [place] [address], [place] Creatinine mass conc 0.83 mg/dL Normal 0.60-1.20 [facility] Comment on above: Performed By: #### 8 5459, 53874 ####[facility] [place] [address], [place] GFR/1.73 sq M predicted among blacks MDRD vol rate/area (S/P/Bld) mL/min/{1.73_m2} Normal >[address] [facility] Comment on above: Performed By: #### 4 8385, 63618 ####[facility] [place] [address], [facility] GFR/1.73 sq M predicted among non-blacks MDRD vol rate/area (S/P/Bld) mL/min/{1.73_m2} Normal >[address] [facility] Comment on above: Performed By: #### 4 8936, 08781 ####[facility] [place] [address], [facility] Glucose mass conc 91 mg/dL Normal 70-100 [facility] Comment on above: Performed By: #### 0 1903, 78328 ####[facility] [facility] [place] [address], [facility] Potassium molar conc 3.9 mmol/L Normal 3.5-5.1 [facility] Comment on above: Performed By: #### 1 9025, 49920 ####[facility] [facility] [place] [address], [facility] Protein mass conc 7.0 g/dL Normal 6.0-8.3 [facility] Comment on above: Performed By: #### 6 1613, 34657 ####[facility] [place] [address], [facility] Sodium molar conc 140 mmol/L Normal 136-145 [facility] Comment on above: Performed By: #### 3 0973, 17621 ####[facility].[place] [id number], [facility] Urea nitrogen mass conc 15 mg/dL Normal 7-25 [facility] Comment on above: Performed By: #### 8 7144, 17291 ####[facility] [place] [address], [facility] DIRECT BILIon 09-25-2017 Bilirubin.direct mass conc 0.1 mg/dL Normal 0.0-0.2 [facility] Comment on above: Performed By: #### 4 6447, 20966 ####[facility] [place] [address], [facility] EVEROLIMUS 04362mc 8 EVEROLIMUS 5.1 ng/mL Normal The [facility] Comment on above: Result Comment: Ther [...] the transplantcenter.Test developed and characteristics determined by [facility]. See Compliance Statement B: [facility]/CSPerformed by [employer],[address] [place] [address] rpg.[facility], Leonid Antonio MD - Lab. Director LIPID PROFILEon 09-25-2017 Cholesterol in HDL mass conc 48 mg/dL Normal 23-92 [facility] Comment on above: Result Comment: Slig ht variation in normal range could be due to gender and/or age.HDL CHOLESTEROL REFERENCE RANGE:20 years and older Cardiovascular Risk> or =60 mg/dL Lctkrqelo33 TO 59 mg/dL Low Risk<40 mg/dL High Risk Performed By: #### 4 4039, 66697 ####[facility].[address] Cholesterol in LDL mass conc 69 mg/dL Normal 0-130 [facility] Comment on above: Result Comment: LDL IS A CALCULATIONLDL IS ONLY VALID IF THE TRIG IS LESS THAN 400. Performed By: #### 4 4004, 66229 ####[facility].[address] Cholesterol mass conc 138 mg/dL Normal 120-200 [facility] Comment on above: Result Comment: CHOL ESTEROL REFERENCE RANGE:20 YEARS AND OLDER CARDIOVASCULAR RISKLess than 200 mg/dl Low Ggpb068 to 239 mg/dl Borderline Qgdr429 mg/dl and greater High Risk Performed By: #### 4 8317, 97079 ####[address] [place] [address], [facility] Cholesterol.total/Cho lesterol in HDL mass ratio 2.9 {ratio} Normal .0-4.5 [facility] Comment on above: Performed By: #### 4 5820, 90952 ####[place] [address] [facility].[address] NON-HDL CHOLESTEROL 90 mg/dL Normal The [facility] Comment on above: Performed By: #### 4 1406, 22097 ####[facility] [facility] [place] [address], [facility] Triglyceride mass conc 103 mg/dL Normal 40-149 [facility] Comment on above: Result Comment: TRIG LYCERIDE REFERENCE RANGE:20 YEARS AND OLDER CARDIOVASCULAR RISKLESS THAN 150 mg/dl LOW [id number] TO 199 mg/dl BORDERLINE WDHB209 mg/dl AND GREATER HIGH RISK Performed By: #### 4 4766, 29268 ####[facility] [place] [address].[place] [address], [facility] VLDL CHOL 21 mg/dL Normal 0-40 [facility] Comment on above: Performed By: #### 4 6447, 72497 ####[facility] MAGNESIUM BLOODon 09-25-2017 Magnesium mass conc 1.8 mg/dL Low 1.9-2.7 [facility] Comment on above: Performed By: #### 4 6447, 63411 ####[facility] [address] PHOSPHORUS BLOODon 8 Phosphate mass conc 3.4 mg/dL Normal 2.5-5.0 [facility] Comment on above: Performed By: #### 4 6447, 33334 ####[facility] [address] TACROLIMUSon 09-25-2017 Tacrolimus mass conc (Bld) 3.6 ng/mL Low 5.0-20.0 [facility] Comment on above: Result Comment: The [facility] Tacrolimus assay is a delayed one-step immunoassayfor the quantitative determination of tacrolimus in human whole bloodusing the chemiluminescent microparticle immunoassay (CMIA) technologywith flexible assay protocols, referred to as Chemiflex. Performed By: #### 4 6447, 78962 ####[place] [address] [address] URIC ACID BLOODon 09-25-2017 Urate mass conc 4.7 mg/dL Normal 2.3-6.6 The [facility] Comment on above: Performed By: #### 4 6447, 41798 ####[address] BK VIRUS QUANTITATION PCR BL OODon 08-26-2017 BKV QUANT PCR Not detected Normal The [facility] Comment on above: Result Comment: Meth od: BK virus was measured by quantitative polymerase chain reactionusing a TaqMan probe targeting the polyomavirus BK GATE OPERATOR-1 gene.The lower limit of quantitation of the assay is 500 copies of BK genomeper milliliter of plasma or urine, and any detectable BK DNA below thatlevel is reported as: Detected, <500 copies/ml. Serial BK virusmeasurement can be used to monitor disease activity. (Reference:Kelsie simpson. J CLIN MICRO 2004; 42:7867-8864).This test was developed and its performance characteristics determinedby the [facility] Molecular Diagnostics Laboratory. It has not been approvedby the US Food and Drug Administration. However, such approval is notrequired for clinical implementation, and test results have been shownto be clinically useful. This laboratory is CAP accredited and CLIAcertified to perform high complexity testing. Performed By: #### 4 1000, 15265, 64813, 37799, 24054, 08675 ####[facility] [address] LOG 10 COPIES Not detected Normal The [facility] Comment on above: Performed By: #### 4 1000, 01812, 31630, 36436, 02256, 91018 ####[facility].[address] CBC W/DIFFon 08-26-2017 ABS BASOPHILS 0.0 10*3/uL Normal 0.0-0.2 The [facility] Comment on above: Performed By: #### 4 1000, 35918, 65018, 69598, 20779, 49047 ####[place] [address] [facility].[address] ABS IMM GRANS 0.0 10*3/uL Normal 0.0-0.2 The [facility] Comment on above: Performed By: #### 4 1000, 87391, 37450, 88103, 48328, 04760 ####[facility] ABS NEUTROPHILS 4.5 10*3/uL Normal 1.6-7.6 The [facility] Comment on above: Performed By: #### 4 1000, 76982, 14023, 98947, 98204, 96602 ####[facility] Basophils Auto #/vol (Bld) 0.2 % Normal 0.0-1.0 [facility] Comment on above: Performed By: #### 4 1000, 28069, 09109, 90920, 46607, 61904 ####[facility] Eosinophils Auto #/vol (Bld) 0.2 10*3/uL Normal 0.0-0.5 [facility] Comment on above: Performed By: #### 4 1000, 04365, 87968, 05520, 08210, 27887 ####[facility] Eosinophils/100 WBC Auto (Bld) 2.4 % Normal 0.0-6.0 [facility] Comment on above: Performed By: #### 4 1000, 65501, 02097, 09895, 92138, 65582 ####[facility].[address] Erythrocyte distribution width Auto Ratio (RBC) 14.0 % Normal 11.5-15.0 [facility] Comment on above: Performed By: #### 4 1000, 68639, 41517, 27063, 74123, 27157 ####[facility].[address] Hematocrit Auto Volume Fraction (Bld) 44.9 % Normal 36.0-45.0 The [facility] Comment on above: Performed By: #### 4 1000, 37242, 50714, 22129, 26970, 96940 ####[facility] Hemoglobin mass conc (Bld) 14.9 g/dL Normal 12.0-15.0 The [facility] Comment on above: Performed By: #### 4 1000, 54649, 59334, 13867, 90831, 79158 ####[facility].[address] IMMATURE GRANS 0.5 % Normal 0.0-1.0 The [facility] Comment on above: Performed By: #### 4 1000, 79298, 01326, 90052, 14514, 89993 ####[facility] Lymphocytes Auto #/vol (Bld) 1.0 10*3/uL Low 1.2-4.0 [facility] Comment on above: Performed By: #### 4 1000, 18708, 70947, 99483, 99398, 72910 ####[facility] Lymphocytes/100 WBC Auto (Bld) 15.8 % Low 20.0-45.0 [facility] Comment on above: Performed By: #### 4 1000, 52790, 72777, 35531, 88918, 40575 ####[facility] [address] MCH Auto Entitic mass (RBC) 29.1 pg Normal 27.0-33.0 [facility] Comment on above: Performed By: #### 4 1000, 90802, 10362, 58044, 21382, 17810 ####[facility] [address] MCHC Auto mass conc (RBC) 33.2 g/dL Normal 32.0-35.0 [facility] Comment on above: Performed By: #### 4 1000, 52857, 54995, 88847, 94110, 34785 ####[facility] MCV Auto Entitic volume (RBC) 87.7 fL Normal 82.0-98.0 [facility] Comment on above: Performed By: #### 4 1000, 41632, 56230, 72376, 77945, 60838 ####[facility] Monocytes Auto #/vol (Bld) 0.7 10*3/uL Normal 0.1-1.0 [facility] Comment on above: Performed By: #### 4 1000, 27657, 52098, 18979, 79201, 02761 ####[facility] MONOS 10.6 % Normal 5.0-12.0 [facility] Comment on above: Performed By: #### 4 1000, 89753, 04016, 69779, 02863, 04068 ####[facility].[address] Neutrophils/100 WBC Auto (Bld) 70.5 % Normal 40.0-72.0 [facility] Comment on above: Performed By: #### 4 1000, 48321, 45902, 57386, 24614, 51247 ####[facility].[address] Nucleated RBC/100 WBC Ratio (Bld) 0 % Normal 0-0 The [facility] Comment on above: Performed By: #### 4 1000, 77404, 04475, 90745, 82378, 62932 ####[facility].[address] PLAT CNT 231 10*3/uL Normal 150-[address] [facility] Comment on above: Performed By: #### 4 1000, 07101, 62042, 97444, 34668, 10824 ####[facility] RBC Auto #/vol (Bld) 5.12 10*6/uL High 3.80-5.00 Th e [facility] Comment on above: Performed By: #### 4 1000, 74014, 41432, 30408, 48136, 89559 ####[facility] [place] [address], [facility] WBC Auto #/vol (Bld) 6.32 10*3/uL Normal 4.00-10.60 Th e [facility] Comment on above: Performed By: #### 4 1000, 97723, 70853, 10684, 92744, 70089 ####[facility] COMP METABOLIC PANELon 08-26 Albumin mass conc 4.3 g/dL Normal 3.5-5.7 [facility] Comment on above: Performed By: #### 4 1000, 26775, 95075, 66802, 63817, 26089 ####[facility] [place] [address], [facility] ALKALINE PHOSPH 125 IU/L High 34-104 The [facility] Comment on above: Performed By: #### 4 1000, 54243, 34985, 65046, 39019, 54012 ####[facility] [place] [address], [facility] ALT enzyme act/vol 17 U/L Normal 7-52 The [facility] Comment on above: Performed By: #### 4 1000, 67429, 83568, 50176, 08620, 97502 ####[facility] [place] [address], [facility] AST enzyme act/vol 23 U/L Normal 13-39 The [facility] Comment on above: Performed By: #### 4 1000, 49783, 22679, 87520, 47472, 17165 ####[facility] [place] [address], [facility] Bilirubin mass conc 0.4 mg/dL Normal 0.3-1.0 [facility] Comment on above: Performed By: #### 4 1000, 94732, 32176, 34514, 74523, 76456 ####[facility] [place] [address], [place] Calcium mass conc 9.6 mg/dL Normal 8.6-10.3 [facility] Comment on above: Performed By: #### 4 1000, 83166, 46349, 17711, 69784, 62466 ####[facility] [place] [address], [facility] Chloride molar conc 104 mmol/L Normal 98-107 [facility] Comment on above: Performed By: #### 4 1000, 08630, 07908, 34113, 44378, 32694 ####[facility] [place] [address], [place] CO2 molar conc 27 mmol/L Normal 21-31 The [facility] Comment on above: Performed By: #### 4 1000, 05981, 32414, 72338, 20670, 31162 ####[facility] [place] [address], [facility] Creatinine mass conc 0.77 mg/dL Normal 0.60-1.20 [facility] Comment on above: Performed By: #### 4 1000, 71218, 09963, 77758, 50913, 40868 ####[facility] [place] [address], [place] GFR/1.73 sq M predicted among blacks MDRD vol rate/area (S/P/Bld) mL/min/{1.73_m2} Normal >[address] [facility] Comment on above: Performed By: #### 4 1000, 12673, 81775, 11466, 56631, 34802 ####[facility] [place] [address], [facility] GFR/1.73 sq M predicted among non-blacks MDRD vol rate/area (S/P/Bld) mL/min/{1.73_m2} Normal >[address] [facility] Comment on above: Performed By: #### 4 1000, 59237, 95706, 85538, 39098, 40776 ####[facility] [place] [address], [facility] Glucose mass conc 95 mg/dL Normal 70-100 The [facility] Comment on above: Performed By: #### 4 1000, 52469, 08217, 99554, 81855, 07891 ####[facility] [place] [address], [facility] Potassium molar conc 4.1 mmol/L Normal 3.5-5.1 [facility] Comment on above: Performed By: #### 4 1000, 22368, 06555, 11240, 81515, 35900 ####[facility] [place] [address], [facility] Protein mass conc 7.3 g/dL Normal 6.0-8.3 The [facility] Comment on above: Performed By: #### 4 1000, 81844, 30096, 88826, 33823, 88598 ####[facility] [place] [address], [facility] Sodium molar conc 139 mmol/L Normal 136-145 The [facility] Comment on above: Performed By: #### 4 1000, 23931, 30993, 80286, 58097, 44961 ####[facility] [place] [address], [facility] Urea nitrogen mass conc 12 mg/dL Normal 7-25 [facility] Comment on above: Performed By: #### 4 1000, 62140, 08829, 50870, 56119, 22779 ####[facility] DIRECT BILIon 08-26-2017 Bilirubin.direct mass conc 0.1 mg/dL Normal 0.0-0.2 [facility] Comment on above: Performed By: #### 4 1000, 79720, 44832, 21639, 30036, 10578 ####[facility] [address], [facility] EVEROLIMUS 15940um 8 EVEROLIMUS 5.6 ng/mL Normal [facility] Comment on above: Result [...] the transplantcenter.Test developed and characteristics determined by [facility]. See Compliance Statement B: [facility]/CSPerformed by [employer],[address] [place] [address] dgl.[facility], Leonid Antonio MD - Lab. Director HEMOGLOBIN A1Con 08-26-2017 Glucose mass conc 114 mg/dL Normal 70-126 [facility] Comment on above: Performed By: #### 4 1000, 94436, 29978, 28397, 74883, 80265 ####[facility] [place] [address], [facility] Hemoglobin A1c/Hemoglobin.total mass fraction (Bld) 5.6 % Normal 4.0-6.0 The [facility] Comment on above: Performed By: #### 4 1000, 28369, 58467, 47666, 01459, 18687 ####[facility] [place] [address], [facility] LIPID PROFILEon 08-26-2017 Cholesterol in HDL mass conc 49 mg/dL Normal 23-92 The [facility] Comment on above: Result Comment: Slig ht variation in normal range could be due to gender and/or age.HDL CHOLESTEROL REFERENCE RANGE:20 years and older Cardiovascular Risk> or =60 mg/dL Qfpdjlulp89 TO 59 mg/dL Low Risk<40 mg/dL High Risk Performed By: #### 4 1000, 08143, 98314, 63919, 58514, 52374 ####[facility] [place] [address], [facility] Cholesterol in LDL mass conc 76 mg/dL Normal 0-130 [facility] Comment on above: Result Comment: LDL IS A CALCULATIONLDL IS ONLY VALID IF THE TRIG IS LESS THAN 400. Performed By: #### 4 1000, 49313, 94151, 32908, 63694, 24553 ####[facility] [place] [address], [facility] Cholesterol mass conc 152 mg/dL Normal 120-200 The [facility] Comment on above: Result Comment: CHOL ESTEROL REFERENCE RANGE:20 YEARS AND OLDER CARDIOVASCULAR RISKLess than 200 mg/dl Low Fnuw074 to 239 mg/dl Borderline Kqji247 mg/dl and greater High Risk Performed By: #### 4 1000, 96281, 02653, 45836, 83648, 78398 ####[facility] [place] [address], [facility] Cholesterol.total/Cho lesterol in HDL mass ratio 3.1 {ratio} Normal .0-4.5 The [facility] Comment on above: Performed By: #### 4 1000, 91118, 84800, 09952, 04684, 94297 ####[facility] NON-HDL CHOLESTEROL 103 mg/dL Normal The [facility] Comment on above: Performed By: #### 4 1000, 85051, 55671, 43922, 04576, 66204 ####[facility] Triglyceride mass conc 133 mg/dL Normal 40-149 The [facility] Comment on above: Result Comment: TRIG LYCERIDE REFERENCE RANGE:20 YEARS AND OLDER CARDIOVASCULAR RISKLESS THAN 150 mg/dl LOW [id number] TO 199 mg/dl BORDERLINE VUUP035 mg/dl AND GREATER HIGH RISK Performed By: #### 4 1000, 36216, 11724, 02281, 13633, 82062 ####[facility].[address] VLDL CHOL 27 mg/dL Normal 0-40 [facility] Comment on above: Performed By: #### 4 1000, 53998, 83313, 51209, 51902, 12051 ####[facility].[address] MAGNESIUM BLOODon 08-26-2017 Magnesium mass conc 1.9 mg/dL Normal 1.9-2.7 [facility] Comment on above: Performed By: #### 4 1000, 30314, 41035, 80553, 72874, 03972 ####[facility] PHOSPHORUS BLOODon 8 Phosphate mass conc 3.4 mg/dL Normal 2.5-5.0 [facility] Comment on above: Performed By: #### 4 1000, 74042, 85973, 75187, 17169, 29127 ####[facility] [address] TACROLIMUSon 08-26-2017 Tacrolimus mass conc (Bld) 4.3 ng/mL Low 5.0-20.0 The [facility] Comment on above: Result Comment: The [facility] Tacrolimus assay is a delayed one-step immunoassayfor the quantitative determination of tacrolimus in human whole bloodusing the chemiluminescent microparticle immunoassay (CMIA) technologywith flexible assay protocols, referred to as Chemiflex. Performed By: #### 4 1000, 00929, 37772, 84105, 97240, 59730 ####[address] URIC ACID BLOODon 08-26-2017 Urate mass conc 4.6 mg/dL Normal 2.3-6.6 The [facility] Comment on above: Performed By: #### 4 1000, 58864, 13659, 19679, 14112, 80666 ####[address] CBC W/DIFFon 07-23-2017 ABS BASOPHILS 0.0 10*3/uL Normal 0.0-0.2 The [facility] Comment on above: Performed By: #### 4 1000, 85249, 50731, 56105, 88647, 63995 ####[place] [address] [address] ABS IMM GRANS 0.0 10*3/uL Normal 0.0-0.2 The [facility] Comment on above: Performed By: #### 4 1000, 16791, 02106, 12336, 99474, 23332 ####[address] ABS NEUTROPHILS 4.4 10*3/uL Normal 1.6-7.6 The [facility] Comment on above: Performed By: #### 4 1000, 78051, 05275, 19697, 84185, 85523 ####[address] Basophils Auto #/vol (Bld) 0.2 % Normal 0.0-1.0 The [facility] Comment on above: Performed By: #### 4 1000, 88955, 25738, 07787, 17441, 01568 ####[address] Eosinophils Auto #/vol (Bld) 0.1 10*3/uL Normal 0.0-0.5 The [facility] Comment on above: Performed By: #### 4 1000, 64213, 57764, 06589, 43689, 27898 ####[place] [address] [facility].[address] Eosinophils/100 WBC Auto (Bld) 2.1 % Normal 0.0-6.0 The [facility] Comment on above: Performed By: #### 4 1000, 30295, 42828, 30674, 10798, 60236 ####[place] [address] [facility].[address] Erythrocyte distribution width Auto Ratio (RBC) 13.7 % Normal 11.5-15.0 The [facility] Comment on above: Performed By: #### 4 1000, 69281, 57161, 93632, 84421, 95108 ####[place] [address] [facility].[address] Hematocrit Auto Volume Fraction (Bld) 44.4 % Normal 36.0-45.0 The [facility] Comment on above: Performed By: #### 4 1000, 50370, 55392, 89347, 28746, 85441 ####[facility].[address] Hemoglobin mass conc (Bld) 14.7 g/dL Normal 12.0-15.0 The [facility] Comment on above: Performed By: #### 4 1000, 42181, 83537, 69283, 17320, 69025 ####[facility].[address] IMMATURE GRANS 0.5 % Normal 0.0-1.0 The [facility] Comment on above: Performed By: #### 4 1000, 87250, 75562, 66663, 32148, 17046 ####[facility].[address] Lymphocytes Auto #/vol (Bld) 1.0 10*3/uL Low 1.2-4.0 The [facility] Comment on above: Performed By: #### 4 1000, 05857, 13183, 95089, 59098, 62379 ####[facility].[address] Lymphocytes/100 WBC Auto (Bld) 15.5 % Low 20.0-45.0 The [facility] Comment on above: Performed By: #### 4 1000, 79071, 87691, 48265, 80214, 03085 ####[facility].[address] MCH Auto Entitic mass (RBC) 28.9 pg Normal 27.0-33.0 The [facility] Comment on above: Performed By: #### 4 1000, 55446, 08895, 72315, 92646, 79715 ####[facility] [facility].[address] MCHC Auto mass conc (RBC) 33.1 g/dL Normal 32.0-35.0 [facility] Comment on above: Performed By: #### 4 1000, 15801, 33479, 45332, 86963, 56125 ####[facility].[address] MCV Auto Entitic volume (RBC) 87.4 fL Normal 82.0-98.0 [facility] Comment on above: Performed By: #### 4 1000, 90463, 48384, 15427, 18780, 95216 ####[facility] [place] [address], [facility] Monocytes Auto #/vol (Bld) 0.8 10*3/uL Normal 0.1-1.0 [facility] Comment on above: Performed By: #### 4 1000, 78681, 30211, 45813, 68421, 27483 ####[facility] MONOS 12.3 % High 5.0-12.0 [facility] Comment on above: Performed By: #### 4 1000, 94954, 88590, 31448, 48441, 42835 ####[facility] Neutrophils/100 WBC Auto (Bld) 69.4 % Normal 40.0-72.0 [facility] Comment on above: Performed By: #### 4 1000, 37983, 40107, 21101, 42086, 99394 ####[facility].[address] Nucleated RBC/100 WBC Ratio (Bld) 0 % Normal 0-0 [facility] Comment on above: Performed By: #### 4 1000, 12290, 05968, 04550, 42071, 21974 ####[facility] PLAT CNT 218 10*3/uL Normal 150-[address] [facility] Comment on above: Performed By: #### 4 1000, 00122, 49326, 61544, 95448, 56255 ####[facility] [place] [address], [facility] RBC Auto #/vol (Bld) 5.08 10*6/uL High 3.80-5.00 [facility] Comment on above: Performed By: #### 4 1000, 01515, 54974, 93305, 76874, 19884 ####[facility] WBC Auto #/vol (Bld) 6.3 10*3/uL Normal 4.0-10.6 [facility] Comment on above: Performed By: #### 4 1000, 36064, 25967, 75063, 20660, 06375 ####[facility] COMP METABOLIC PANELon 07-23 Albumin mass conc 4.2 g/dL Normal 3.5-5.7 [facility] Comment on above: Performed By: #### 4 1000, 26928, 92977, 05748, 64798, 54015 ####[facility] ALKALINE PHOSPH 113 IU/L High 34-104 [facility] Comment on above: Performed By: #### 4 1000, 27245, 49658, 67903, 53638, 95912 ####[facility] ALT enzyme act/vol 23 U/L Normal 7-52 [facility] Comment on above: Performed By: #### 4 1000, 58997, 51430, 84174, 58316, 19235 ####[facility] [place] [address], [facility] AST enzyme act/vol 25 U/L Normal 13-39 [facility] Comment on above: Performed By: #### 4 1000, 48097, 49158, 05505, 60063, 58692 ####[facility] [place] [address], [facility] Bilirubin mass conc 0.6 mg/dL Normal 0.3-1.0 [facility] Comment on above: Performed By: #### 4 1000, 15068, 40632, 41525, 87145, 35770 ####[facility] [place] [address], [facility] Calcium mass conc 9.6 mg/dL Normal 8.6-10.3 [facility] Comment on above: Performed By: #### 4 1000, 26474, 03831, 64715, 24671, 36316 ####[facility] [place] [address], [place] Chloride molar conc 104 mmol/L Normal 98-107 [facility] Comment on above: Performed By: #### 4 1000, 74210, 29981, 97021, 35673, 49427 ####[facility] [place] [address], [place] CO2 molar conc 25 mmol/L Normal 21-31 [facility] Comment on above: Performed By: #### 4 1000, 65932, 67515, 92980, 03762, 98565 ####[facility] [place] [address], [place] Creatinine mass conc 0.80 mg/dL Normal 0.60-1.20 [facility] Comment on above: Performed By: #### 4 1000, 47201, 06647, 76048, 00443, 84146 ####[facility] [place] [address], [place] GFR/1.73 sq M predicted among blacks MDRD vol rate/area (S/P/Bld) mL/min/{1.73_m2} Normal >[address] [facility] Comment on above: Performed By: #### 4 1000, 42042, 14628, 86088, 40440, 89220 ####[facility] [place] [address], [place] GFR/1.73 sq M predicted among non-blacks MDRD vol rate/area (S/P/Bld) mL/min/{1.73_m2} Normal >[address] [facility] Comment on above: Performed By: #### 4 1000, 55393, 38706, 90883, 38293, 01041 ####[facility] [place] [address], [facility] Glucose mass conc 91 mg/dL Normal 70-100 [facility] Comment on above: Performed By: #### 4 1000, 84517, 62599, 08246, 15348, 51963 ####[facility] [place] [address], [facility] Potassium molar conc 4.0 mmol/L Normal 3.5-5.1 [facility] Comment on above: Performed By: #### 4 1000, 40536, 45392, 18171, 71918, 47564 ####[facility] [place] [address], [facility] Protein mass conc 6.8 g/dL Normal 6.0-8.3 [facility] Comment on above: Performed By: #### 4 1000, 68444, 81964, 23114, 47848, 01183 ####[facility] [place] [address], [facility] Sodium molar conc 140 mmol/L Normal 136-145 [facility] Comment on above: Performed By: #### 4 1000, 48136, 99562, 55351, 86730, 86487 ####[facility] [place] [address], [facility] Urea nitrogen mass conc 16 mg/dL Normal 7-25 [facility] Comment on above: Performed By: #### 4 1000, 09497, 75494, 15181, 39452, 07300 ####[facility] [place] [address], [place] DIRECT BILIon 07-23-2017 Bilirubin.direct mass conc 0.2 mg/dL Normal 0.0-0.2 [facility] Comment on above: Performed By: #### 4 1000, 87691, 66037, 59357, 01179, 49726 ####[facility] [place] [address], [facility] EVEROLIMUS 32243mh 8 EVEROLIMUS 5.3 ng/mL Normal [facility] Comment on above: Result [...] the transplantcenter.Test developed and characteristics determined by [facility]. See Compliance Statement B: [facility]/CSPerformed by [employer],[address] [place] [address] xbe.[facility], Leonid Antonio MD - Lab. Director LIPID PROFILEon 07-23-2017 Cholesterol in HDL mass conc 45 mg/dL Normal 23-92 [facility] Comment on above: Result Comment: Slig ht variation in normal range could be due to gender and/or age.HDL CHOLESTEROL REFERENCE RANGE:20 years and older Cardiovascular Risk> or =60 mg/dL [id number] TO 59 mg/dL Low Risk<40 mg/dL High Risk Performed By: #### 4 1000, 34728, 40403, 12817, 02786, 45321 ####[facility] [place] [address], [facility] Cholesterol in LDL mass conc 79 mg/dL Normal 0-130 [facility] Comment on above: Result Comment: LDL IS A CALCULATIONLDL IS ONLY VALID IF THE TRIG IS LESS THAN 400. Performed By: #### 4 1000, 00863, 60913, 99345, 82391, 70856 ####[facility] [place] [address], [facility] Cholesterol mass conc 141 mg/dL Normal 120-200 [facility] Comment on above: Result Comment: CHOL ESTEROL REFERENCE RANGE:20 YEARS AND OLDER CARDIOVASCULAR RISKLess than 200 mg/dl Low Psvy381 to 239 mg/dl Borderline Aabv824 mg/dl and greater High Risk Performed By: #### 4 1000, 40715, 32973, 98472, 56163, 88287 ####[facility] [place] [address], [facility] Cholesterol.total/Cho lesterol in HDL mass ratio 3.1 {ratio} Normal .0-4.5 [facility] Comment on above: Performed By: #### 4 1000, 16016, 73133, 24212, 38278, 11545 ####[facility] [place] [address], [facility] NON-HDL CHOLESTEROL 96 mg/dL Normal [facility] Comment on above: Performed By: #### 4 1000, 41601, 61776, 98226, 67723, 04738 ####[facility] [place] [address], [facility] Triglyceride mass conc 83 mg/dL Normal 40-149 [facility] Comment on above: Result Comment: TRIG LYCERIDE REFERENCE RANGE:20 YEARS AND OLDER CARDIOVASCULAR RISKLESS THAN 150 mg/dl LOW [id number] TO 199 mg/dl BORDERLINE [id number] mg/dl AND GREATER HIGH RISK Performed By: #### 4 1000, 08241, 45501, 29633, 11286, 75150 ####[facility] VLDL CHOL 17 mg/dL Normal 0-40 [facility] Comment on above: Performed By: #### 4 1000, 48097, 65207, 50533, 00446, 15329 ####[facility].[address] MAGNESIUM BLOODon 07-23-2017 Magnesium mass conc 2.0 mg/dL Normal 1.9-2.7 [facility] Comment on above: Performed By: #### 4 1000, 76703, 70702, 39823, 90748, 97848 ####[facility].[address] PHOSPHORUS BLOODon 8 Phosphate mass conc 4.0 mg/dL Normal 2.5-5.0 [facility] Comment on above: Performed By: #### 4 1000, 89049, 25854, 14513, 37565, 74533 ####[facility].[address] TACROLIMUSon 07-23-2017 Tacrolimus mass conc (Bld) 4.6 ng/mL Low 5.0-20.0 [facility] Comment on above: Result Comment: The [facility] Tacrolimus assay is a delayed one-step immunoassayfor the quantitative determination of tacrolimus in human whole bloodusing the chemiluminescent microparticle immunoassay (CMIA) technologywith flexible assay protocols, referred to as Chemiflex. Performed By: #### 4 1000, 48326, 15658, 26374, 51101, 13721 ####[facility].[address] URIC ACID BLOODon 07-23-2017 Urate mass conc 4.7 mg/dL Normal 2.3-6.6 The [facility] Comment on above: Performed By: #### 4 1000, 91099, 60392, 52190, 81682, 49219 ####[facility].[address] CBC W/DIFFon 06-20-2017 ABS BASOPHILS 0.0 10*3/uL Normal 0.0-0.2 [facility] Comment on above: Performed By: #### 4 1000, 30072, 99453, 36517, 94713, 00560 ####[facility].[address] ABS IMM GRANS 0.0 10*3/uL Normal 0.0-0.2 [facility] Comment on above: Performed By: #### 4 1000, 51914, 07545, 17314, 00143, 58638 ####[facility].[address] ABS NEUTROPHILS 4.2 10*3/uL Normal 1.6-7.6 The [facility] Comment on above: Performed By: #### 4 1000, 72011, 16179, 46360, 92121, 17048 ####[facility].[address] Basophils Auto #/vol (Bld) 0.2 % Normal 0.0-1.0 [facility] Comment on above: Performed By: #### 4 1000, 51195, 08056, 26970, 42345, 49726 ####[facility].[address] Eosinophils Auto #/vol (Bld) 0.1 10*3/uL Normal 0.0-0.5 [facility] Comment on above: Performed By: #### 4 1000, 86338, 22738, 86995, 09431, 17737 ####[facility].[address] Eosinophils/100 WBC Auto (Bld) 1.5 % Normal 0.0-6.0 [facility] Comment on above: Performed By: #### 4 1000, 91421, 77178, 32210, 82756, 62242 ####[facility] Erythrocyte distribution width Auto Ratio (RBC) 13.4 % Normal 11.5-15.0 [facility] Comment on above: Performed By: #### 4 1000, 05487, 27922, 29895, 28616, 84879 ####[facility] Hematocrit Auto Volume Fraction (Bld) 44.9 % Normal 36.0-45.0 [facility] Comment on above: Performed By: #### 4 1000, 24771, 24824, 60778, 02308, 93062 ####[facility] Hemoglobin mass conc (Bld) 14.9 g/dL Normal 12.0-15.0 [facility] Comment on above: Performed By: #### 4 1000, 88038, 69566, 29287, 84900, 51418 ####[facility] IMMATURE GRANS 0.2 % Normal 0.0-1.0 [facility] Comment on above: Performed By: #### 4 1000, 50001, 31461, 97023, 35257, 00627 ####[facility] Lymphocytes Auto #/vol (Bld) 1.1 10*3/uL Low 1.2-4.0 [facility] Comment on above: Performed By: #### 4 1000, 99592, 54977, 48106, 19537, 99688 ####[facility] [address] Lymphocytes/100 WBC Auto (Bld) 17.4 % Low 20.0-45.0 [facility] Comment on above: Performed By: #### 4 1000, 98078, 95831, 95346, 49893, 00802 ####[place] [address] [facility].[address] MCH Auto Entitic mass (RBC) 29.2 pg Normal 27.0-33.0 [facility] Comment on above: Performed By: #### 4 1000, 38595, 98276, 80049, 24258, 73103 ####[place] [address] [address] MCHC Auto mass conc (RBC) 33.2 g/dL Normal 32.0-35.0 [facility] Comment on above: Performed By: #### 4 1000, 40643, 81883, 66256, 72807, 45709 ####[facility].[address] MCV Auto Entitic volume (RBC) 87.9 fL Normal 82.0-98.0 [facility] Comment on above: Performed By: #### 4 1000, 24663, 36626, 20155, 00555, 40412 ####[place] [address] [facility].[address] Monocytes Auto #/vol (Bld) 0.7 10*3/uL Normal 0.1-1.0 [facility] Comment on above: Performed By: #### 4 1000, 68220, 52280, 64866, 91482, 85681 ####[facility].[address] MONOS 11.3 % Normal 5.0-12.0 [facility] Comment on above: Performed By: #### 4 1000, 83395, 58319, 67868, 49480, 18648 ####[facility].[address] Neutrophils/100 WBC Auto (Bld) 69.4 % Normal 40.0-72.0 [facility] Comment on above: Performed By: #### 4 1000, 70349, 43088, 17657, 59169, 58360 ####[facility] Nucleated RBC/100 WBC Ratio (Bld) 0 % Normal 0-0 [facility] Comment on above: Performed By: #### 4 1000, 22991, 95133, 46621, 61057, 11010 ####[facility].[address] PLAT CNT 198 10*3/uL Normal 150-[address] [facility] Comment on above: Performed By: #### 4 1000, 26810, 59000, 83039, 96128, 02208 ####[facility].[address] RBC Auto #/vol (Bld) 5.11 10*6/uL High 3.80-5.00 [facility] Comment on above: Performed By: #### 4 1000, 23719, 73529, 10203, 97012, 02721 ####[facility].[address] WBC Auto #/vol (Bld) 6.0 10*3/uL Normal 4.0-10.6 [facility] Comment on above: Performed By: #### 4 1000, 40856, 25872, 84531, 58942, 08571 ####[facility].[address] COMP METABOLIC PANELon 06-20 Albumin mass conc 4.4 g/dL Normal 3.5-5.7 [facility] Comment on above: Performed By: #### 4 1000, 43061, 45978, 56426, 46573, 34105 ####[facility] ALKALINE PHOSPH 133 IU/L High 34-104 [facility] Comment on above: Performed By: #### 4 1000, 28398, 57992, 94669, 76804, 60728 ####[facility] ALT enzyme act/vol 16 U/L Normal 7-52 [facility] Comment on above: Performed By: #### 4 1000, 89000, 06892, 32686, 33076, 43015 ####[facility] AST enzyme act/vol 21 U/L Normal 13-39 [facility] Comment on above: Performed By: #### 4 1000, 55908, 93948, 82874, 92792, 47526 ####[facility] [place] [address], [facility] Bilirubin mass conc 0.8 mg/dL Normal 0.3-1.0 [facility] Comment on above: Performed By: #### 4 1000, 68374, 59037, 34165, 81373, 12656 ####[facility] [place] [address], [facility] Calcium mass conc 10.0 mg/dL Normal 8.6-10.3 [facility] Comment on above: Performed By: #### 4 1000, 58866, 39144, 34369, 08291, 09919 ####[facility] [place] [address], [facility] Chloride molar conc 106 mmol/L Normal 98-107 [facility] Comment on above: Performed By: #### 4 1000, 29507, 22296, 04071, 34071, 95929 ####[facility] [place] [address], [facility] CO2 molar conc 27 mmol/L Normal 21-31 [facility] Comment on above: Performed By: #### 4 1000, 01031, 47257, 63060, 38915, 74345 ####[facility] [place] [address], [facility] Creatinine mass conc 0.74 mg/dL Normal 0.60-1.20 [facility] Comment on above: Performed By: #### 4 1000, 58623, 73041, 18599, 22436, 34503 ####[facility] [place] [address], [facility] GFR/1.73 sq M predicted among blacks MDRD vol rate/area (S/P/Bld) mL/min/{1.73_m2} Normal >60 [facility] Comment on above: Performed By: #### 4 1000, 61962, 06201, 31556, 29648, 33629 ####[facility] [place] [address], [facility] GFR/1.73 sq M predicted among non-blacks MDRD vol rate/area (S/P/Bld) mL/min/{1.73_m2} Normal >[address] [facility] Comment on above: Performed By: #### 4 1000, 09228, 57071, 90491, 81464, 86079 ####[facility] [place] [address], [place] Glucose mass conc 95 mg/dL Normal 70-100 [facility] Comment on above: Performed By: #### 4 1000, 27313, 01286, 13760, 73790, 82095 ####[facility] [place] [address], [place] Potassium molar conc 3.8 mmol/L Normal 3.5-5.1 [facility] Comment on above: Performed By: #### 4 1000, 57194, 97294, 85191, 38246, 04565 ####[facility] Protein mass conc 7.3 g/dL Normal 6.0-8.3 [facility] Comment on above: Performed By: #### 4 1000, 07032, 01144, 56596, 79732, 08648 ####[facility] Sodium molar conc 137 mmol/L Normal 136-145 [facility] Comment on above: Performed By: #### 4 1000, 64870, 53966, 03976, 98979, 09670 ####[facility] Urea nitrogen mass conc 16 mg/dL Normal 7-25 [facility] Comment on above: Performed By: #### 4 1000, 61830, 43233, 99551, 55380, 49483 ####[facility] DIRECT BILIon 06-20-2017 Bilirubin.direct mass conc 0.1 mg/dL Normal 0.0-0.2 [facility] Comment on above: Performed By: #### 4 1000, 50577, 57767, 03961, 72320, 54356 ####[facility] EVEROLIMUS [id number] 8 EVEROLIMUS 6.7 ng/mL Normal [facility] Comment on above: Result Comment: Ther [...] the transplantcenter.Test developed and characteristics determined by [facility]. See Compliance Statement B: [facility]/CSPerformed by [employer],[address] [place] [id number] dad.[facility], Leonid Antonio MD - Lab. Director LIPID PROFILEon 06-20-2017 Cholesterol in HDL mass conc 45 mg/dL Normal 23-92 [facility] Comment on above: Result Comment: Slig ht variation in normal range could be due to gender and/or age.HDL CHOLESTEROL REFERENCE RANGE:20 years and older Cardiovascular Risk> or =60 mg/dL Bfsirsetr44 TO 59 mg/dL Low Risk<40 mg/dL High Risk Performed By: #### 4 1000, 30328, 29708, 37187, 77318, 44691 ####[facility].[address] Cholesterol in LDL mass conc 58 mg/dL Normal 0-130 [facility] Comment on above: Result Comment: LDL IS A CALCULATIONLDL IS ONLY VALID IF THE TRIG IS LESS THAN 400. Performed By: #### 4 1000, 92221, 63544, 16436, 99655, 52562 ####[facility] [place] [address], [facility] Cholesterol mass conc 126 mg/dL Normal 120-200 [facility] Comment on above: Result Comment: CHOL ESTEROL REFERENCE RANGE:20 YEARS AND OLDER CARDIOVASCULAR RISKLess than 200 mg/dl Low Ghte273 to 239 mg/dl Borderline Wnux477 mg/dl and greater High Risk Performed By: #### 4 1000, 94814, 09352, 05903, 76424, 64689 ####[facility] Cholesterol.total/Cho lesterol in HDL mass ratio 2.8 {ratio} Normal .0-4.5 [facility] Comment on above: Performed By: #### 4 1000, 52413, 89663, 29587, 46816, 74268 ####[facility].[address] NON-HDL CHOLESTEROL 81 mg/dL Normal [facility] Comment on above: Performed By: #### 4 1000, 38781, 15609, 39927, 25833, 67813 ####[facility].[address] Triglyceride mass conc 113 mg/dL Normal 40-149 [facility] Comment on above: Result Comment: TRIG LYCERIDE REFERENCE RANGE:20 YEARS AND OLDER CARDIOVASCULAR RISKLESS THAN 150 mg/dl LOW [id number] TO 199 mg/dl BORDERLINE [id number] mg/dl AND GREATER HIGH RISK Performed By: #### 4 1000, 06700, 06994, 83280, 23545, 41599 ####[facility].[address] VLDL CHOL 23 mg/dL Normal 0-40 [facility] Comment on above: Performed By: #### 4 1000, 86511, 09540, 64506, 43867, 20173 ####[facility].[address] MAGNESIUM BLOODon 06-20-2017 Magnesium mass conc 1.9 mg/dL Normal 1.9-2.7 [facility] Comment on above: Performed By: #### 4 1000, 80291, 60420, 85618, 07446, 10906 ####[facility] [place] [address], [facility] PHOSPHORUS BLOODon 8 Phosphate mass conc 3.1 mg/dL Normal 2.5-5.0 [facility] Comment on above: Performed By: #### 4 1000, 51275, 79576, 55039, 74356, 22928 ####[facility].[address] TACROLIMUSon 06-20-2017 Tacrolimus mass conc (Bld) 4.2 ng/mL Low 5.0-20.0 [facility] Comment on above: Result Comment: The [facility] Tacrolimus assay is a delayed one-step immunoassayfor the quantitative determination of tacrolimus in human whole bloodusing the chemiluminescent microparticle immunoassay (CMIA) technologywith flexible assay protocols, referred to as Chemiflex. Performed By: #### 4 1000, 62175, 05599, 59649, 99031, 20340 ####[facility].[address] URIC ACID BLOODon 06-20-2017 Urate mass conc 4.3 mg/dL Normal 2.3-6.6 The [facility] Comment on above: Performed By: #### 4 1000, 71935, 18539, 25173, 68701, 32411 ####[address] BK VIRUS QUANTITATION PCR BL OODon 05-27-2017 BKV QUANT PCR Not detected Normal The [facility] Comment on above: Result Comment: Meth od: BK virus was measured by quantitative polymerase chain reactionusing a TaqMan probe targeting the polyomavirus BK GATE OPERATOR-1 gene.The lower limit of quantitation of the assay is 500 copies of BK genomeper milliliter of plasma or urine, and any detectable BK DNA below thatlevel is reported as: Detected, <500 copies/ml. Serial BK virusmeasurement can be used to monitor disease activity. (Reference:Kelsie vaughanl. J CLIN MICRO 2004; 42:3257-0872).This test was developed and its performance characteristics determinedby the [facility] Molecular Diagnostics Laboratory. It has not been approvedby the [place] Food and Drug Administration. However, such approval is notrequired for clinical implementation, and test results have been shownto be clinically useful. This laboratory is CAP accredited and CLIAcertified to perform high complexity testing. Performed By: #### 4 1000, 97944, 23910, 17964, 68715, 60531 ####[facility].[address] LOG 10 COPIES Not detected Normal [facility] Comment on above: Performed By: #### 4 1000, 84838, 21304, 63958, 46214, 64909 ####[place] [address] [facility].[address] CBC W/DIFFon 05-27-2017 ABS BASOPHILS 0.0 10*3/uL Normal 0.0-0.2 [facility] Comment on above: Performed By: #### 4 1000, 77168, 82182, 39951, 57823, 16147 ####[facility].[address] ABS IMM GRANS 0.0 10*3/uL Normal 0.0-0.2 [facility] Comment on above: Performed By: #### 4 1000, 07790, 69342, 26790, 89173, 51990 ####[facility].[address] ABS NEUTROPHILS 4.8 10*3/uL Normal 1.6-7.6 The [facility] Comment on above: Performed By: #### 4 1000, 77268, 76100, 44602, 86207, 40905 ####[facility].[address] Basophils Auto #/vol (Bld) 0.0 % Normal 0.0-1.0 [facility] Comment on above: Performed By: #### 4 1000, 07304, 89526, 27414, 15361, 49944 ####[facility] Eosinophils Auto #/vol (Bld) 0.1 10*3/uL Normal 0.0-0.5 [facility] Comment on above: Performed By: #### 4 1000, 46391, 18702, 22409, 06789, 64825 ####[facility] Eosinophils/100 WBC Auto (Bld) 1.1 % Normal 0.0-6.0 [facility] Comment on above: Performed By: #### 4 1000, 43855, 77746, 70130, 88779, 19664 ####[facility].[address] Erythrocyte distribution width Auto Ratio (RBC) 13.5 % Normal 11.5-15.0 [facility] Comment on above: Performed By: #### 4 1000, 92917, 61475, 79385, 37622, 12553 ####[facility].[address] Hematocrit Auto Volume Fraction (Bld) 46.1 % High 36.0-45.0 [facility] Comment on above: Performed By: #### 4 1000, 04198, 38071, 40350, 23489, 65444 ####[facility].[address] Hemoglobin mass conc (Bld) 15.0 g/dL Normal 12.0-15.0 [facility] Comment on above: Performed By: #### 4 1000, 66627, 38132, 44588, 80110, 66180 ####[facility].[address] IMMATURE GRANS 0.3 % Normal 0.0-1.0 [facility] Comment on above: Performed By: #### 4 1000, 96712, 51291, 62636, 02156, 92991 ####[facility].[address] Lymphocytes Auto #/vol (Bld) 1.0 10*3/uL Low 1.2-4.0 [facility] Comment on above: Performed By: #### 4 1000, 76453, 98505, 68231, 28248, 91483 ####[facility] Lymphocytes/100 WBC Auto (Bld) 15.7 % Low 20.0-45.0 [facility] Comment on above: Performed By: #### 4 1000, 83514, 43914, 65140, 26180, 87674 ####[facility].[address] MCH Auto Entitic mass (RBC) 28.8 pg Normal 27.0-33.0 [facility] Comment on above: Performed By: #### 4 1000, 79245, 55140, 18501, 56503, 44110 ####[facility].[address] MCHC Auto mass conc (RBC) 32.5 g/dL Normal 32.0-35.0 [facility] Comment on above: Performed By: #### 4 1000, 09285, 30532, 49472, 83584, 08930 ####[facility] MCV Auto Entitic volume (RBC) 88.7 fL Normal 82.0-98.0 [facility] Comment on above: Performed By: #### 4 1000, 73408, 38170, 12801, 28902, 79677 ####[facility] Monocytes Auto #/vol (Bld) 0.8 10*3/uL Normal 0.1-1.0 [facility] Comment on above: Performed By: #### 4 1000, 11066, 29026, 06399, 61816, 39393 ####[facility] MONOS 11.4 % Normal 5.0-12.0 [facility] Comment on above: Performed By: #### 4 1000, 95494, 34139, 88713, 72103, 22514 ####[facility] Neutrophils/100 WBC Auto (Bld) 71.5 % Normal 40.0-72.0 [facility] Comment on above: Performed By: #### 4 1000, 15441, 21843, 82394, 70681, 97509 ####[facility] Nucleated RBC/100 WBC Ratio (Bld) 0 % Normal 0-0 [facility] Comment on above: Performed By: #### 4 1000, 66107, 30267, 05928, 50652, 20888 ####[facility] [address] PLAT CNT 199 10*3/uL Normal 150-[address] [facility] Comment on above: Performed By: #### 4 1000, 27165, 83497, 83304, 15434, 73504 ####[facility] RBC Auto #/vol (Bld) 5.20 10*6/uL High 3.80-5.00 Th e [facility] Comment on above: Performed By: #### 4 1000, 70454, 39207, 87703, 45844, 58360 ####[facility] WBC Auto #/vol (Bld) 6.6 10*3/uL Normal 4.0-10.6 [facility] Comment on above: Performed By: #### 4 1000, 73594, 81742, 53573, 10236, 02394 ####[facility].[address] COMP METABOLIC PANELon 05-27 Albumin mass conc 4.6 g/dL Normal 3.5-5.7 [facility] Comment on above: Performed By: #### 4 1000, 50438, 99558, 01235, 21892, 72831 ####[facility].[address] ALKALINE PHOSPH 105 IU/L High 34-104 The [facility] Comment on above: Performed By: #### 4 1000, 60299, 68727, 77273, 02031, 15204 ####[facility].[address] ALT enzyme act/vol 20 U/L Normal 7-52 The [facility] Comment on above: Performed By: #### 4 1000, 62008, 67224, 74348, 93527, 04419 ####[facility].[address] AST enzyme act/vol 23 U/L Normal 13-39 The [facility] Comment on above: Performed By: #### 4 1000, 16632, 05805, 32114, 64274, 77737 ####[facility].[address] Bilirubin mass conc 0.6 mg/dL Normal 0.3-1.0 [facility] Comment on above: Performed By: #### 4 1000, 01235, 45602, 55321, 13384, 10637 ####[facility] [place] [address], [facility] Calcium mass conc 9.8 mg/dL Normal 8.6-10.3 [facility] Comment on above: Performed By: #### 4 1000, 86167, 84657, 24854, 69386, 59745 ####[facility] [place] [address], [place] Chloride molar conc 106 mmol/L Normal 98-107 [facility] Comment on above: Performed By: #### 4 1000, 39760, 55319, 28491, 11810, 17334 ####[facility] [place] [address], [facility] CO2 molar conc 30 mmol/L Normal 21-31 [facility] Comment on above: Performed By: #### 4 1000, 50031, 78965, 44738, 02268, 60663 ####[facility] [place] [address], [facility] Creatinine mass conc 0.80 mg/dL Normal 0.60-1.20 [facility] Comment on above: Performed By: #### 4 1000, 33327, 87248, 75790, 53007, 77622 ####[facility] [place] [address], [facility] GFR/1.73 sq M predicted among blacks MDRD vol rate/area (S/P/Bld) mL/min/{1.73_m2} Normal >[address] [facility] Comment on above: Performed By: #### 4 1000, 15622, 88075, 89875, 01464, 61025 ####[facility] [place] [address], [facility] GFR/1.73 sq M predicted among non-blacks MDRD vol rate/area (S/P/Bld) mL/min/{1.73_m2} Normal >[address] [facility] Comment on above: Performed By: #### 4 1000, 12333, 79294, 68677, 20052, 60552 ####[facility] [place] [address], [facility] Glucose mass conc 90 mg/dL Normal 70-100 [facility] Comment on above: Performed By: #### 4 1000, 88679, 28199, 73647, 27970, 80981 ####[facility] [place] [address], [facility] Potassium molar conc 4.0 mmol/L Normal 3.5-5.1 [facility] Comment on above: Performed By: #### 4 1000, 26843, 79187, 94140, 32474, 01180 ####[facility] [place] [address], [facility] Protein mass conc 6.8 g/dL Normal 6.0-8.3 [facility] Comment on above: Performed By: #### 4 1000, 57666, 11421, 03684, 09239, 29849 ####[facility] [place] [address], [facility] Sodium molar conc 138 mmol/L Normal 136-145 [facility] Comment on above: Performed By: #### 4 1000, 68728, 86363, 40301, 27071, 76013 ####[facility] [place] [address], [facility] Urea nitrogen mass conc 14 mg/dL Normal 7-25 [facility] Comment on above: Performed By: #### 4 1000, 17022, 40624, 81489, 27994, 96055 ####[facility] DIRECT BILIon 05-27-2017 Bilirubin.direct mass conc 0.1 mg/dL Normal 0.0-0.2 [facility] Comment on above: Performed By: #### 4 1000, 96858, 92560, 69621, 97260, 53435 ####[facility].[address] EVEROLIMUS 38983sl 8 EVEROLIMUS 5.6 ng/mL Normal [facility] Comment on above: Result [...] the transplantcenter.Test developed and characteristics determined by [facility]. See Compliance Statement B: [facility]/CSPerformed by [employer],[address] [place] [id number] eta.[facility], Leonid Antonio MD - Lab. Director HEMOGLOBIN A1Con 05-27-2017 Glucose mass conc 108 mg/dL Normal 70-126 [facility] Comment on above: Performed By: #### 4 1000, 48629, 87496, 91278, 30621, 35435 ####[facility] [address] Hemoglobin A1c/Hemoglobin.total mass fraction (Bld) 5.4 % Normal 4.0-6.0 The [facility] Comment on above: Performed By: #### 4 1000, 26494, 17839, 06039, 64616, 42110 ####[facility] [place] [address], [facility] LIPID PROFILEon 05-27-2017 Cholesterol in HDL mass conc 39 mg/dL Normal 23-92 The [facility] Comment on above: Result Comment: Slig ht variation in normal range could be due to gender and/or age.HDL CHOLESTEROL REFERENCE RANGE:20 years and older Cardiovascular Risk> or =60 mg/dL [id number] TO 59 mg/dL Low Risk<40 mg/dL High Risk Performed By: #### 4 1000, 44051, 12080, 24205, 80533, 79508 ####[facility] [place] [address], [facility] Cholesterol in LDL mass conc 52 mg/dL Normal 0-130 [facility] Comment on above: Result Comment: LDL IS A CALCULATIONLDL IS ONLY VALID IF THE TRIG IS LESS THAN 400. Performed By: #### 4 1000, 76850, 99262, 32755, 35618, 71537 ####[facility] [place] [address], [facility] Cholesterol mass conc 117 mg/dL Low 120-200 [facility] Comment on above: Result Comment: CHOL ESTEROL REFERENCE RANGE:20 YEARS AND OLDER CARDIOVASCULAR RISKLess than 200 mg/dl Low Olpi190 to 239 mg/dl Borderline Aupg814 mg/dl and greater High Risk Performed By: #### 4 1000, 81819, 31531, 45966, 85280, 13678 ####[facility] [place] [address], [place] Cholesterol.total/Cho lesterol in HDL mass ratio 3.0 {ratio} Normal .0-4.5 [facility] Comment on above: Performed By: #### 4 1000, 30551, 93987, 90584, 05972, 46681 ####[facility] [place] [address], [place] NON-HDL CHOLESTEROL 78 mg/dL Normal The [facility] Comment on above: Performed By: #### 4 1000, 79366, 52939, 91864, 50825, 91079 ####[facility] Triglyceride mass conc 131 mg/dL Normal 40-149 [facility] Comment on above: Result Comment: TRIG LYCERIDE REFERENCE RANGE:20 YEARS AND OLDER CARDIOVASCULAR RISKLESS THAN 150 mg/dl LOW EPCS191 TO 199 mg/dl BORDERLINE UAQY465 mg/dl AND GREATER HIGH RISK Performed By: #### 4 1000, 61729, 47607, 10045, 32791, 62293 ####[facility] VLDL CHOL 26 mg/dL Normal 0-40 [facility] Comment on above: Performed By: #### 4 1000, 05597, 36969, 85678, 16355, 85251 ####[facility] MAGNESIUM BLOODon 05-27-2017 Magnesium mass conc 2.1 mg/dL Normal 1.9-2.7 [facility] Comment on above: Performed By: #### 4 1000, 86270, 16375, 29455, 23840, 67535 ####[facility] PHOSPHORUS BLOODon 8 Phosphate mass conc 3.5 mg/dL Normal 2.5-5.0 [facility] Comment on above: Performed By: #### 4 1000, 16140, 68135, 61620, 45542, 68392 ####[facility] TACROLIMUSon 05-27-2017 Tacrolimus mass conc (Bld) 4.4 ng/mL Low 5.0-20.0 [facility] Comment on above: Result Comment: The [facility] Tacrolimus assay is a delayed one-step immunoassayfor the quantitative determination of tacrolimus in human whole bloodusing the chemiluminescent microparticle immunoassay (CMIA) technologywith flexible assay protocols, referred to as Chemiflex. Performed By: #### 4 1000, 17562, 91878, 09034, 17555, 14756 ####[facility] [address] URIC ACID BLOODon 05-27-2017 Urate mass conc 4.6 mg/dL Normal 2.3-6.6 The [facility] Comment on above: Performed By: #### 4 1000, 16166, 26702, 08154, 90360, 96476 ####[facility] [address] CBC W/DIFFon 04-29-2017 ABS BASOPHILS 0.0 10*3/uL Normal 0.0-0.2 [facility] Comment on above: Performed By: #### 4 1000, 28091, 10471, 54625, 72843, 83933 ####[facility] [address] ABS IMM GRANS 0.0 10*3/uL Normal 0.0-0.2 [facility] Comment on above: Performed By: #### 4 1000, 09378, 61937, 30153, 39737, 49596 ####[facility] [address] ABS NEUTROPHILS 4.6 10*3/uL Normal 1.6-7.6 [facility] Comment on above: Performed By: #### 4 1000, 18490, 83898, 66968, 42959, 14740 ####[facility] [address] Basophils Auto #/vol (Bld) 0.3 % Normal 0.0-1.0 [facility] Comment on above: Performed By: #### 4 1000, 28380, 68369, 41639, 46363, 64365 ####[facility] Eosinophils Auto #/vol (Bld) 0.1 10*3/uL Normal 0.0-0.5 [facility] Comment on above: Performed By: #### 4 1000, 26762, 96644, 15517, 17822, 22397 ####[facility] Eosinophils/100 WBC Auto (Bld) 1.7 % Normal 0.0-6.0 [facility] Comment on above: Performed By: #### 4 1000, 55082, 42794, 78730, 82304, 81633 ####[facility].[address] Erythrocyte distribution width Auto Ratio (RBC) 13.7 % Normal 11.5-15.0 [facility] Comment on above: Performed By: #### 4 1000, 27284, 23993, 36008, 00212, 23872 ####[facility].[address] Hematocrit Auto Volume Fraction (Bld) 45.0 % Normal 36.0-45.0 [facility] Comment on above: Performed By: #### 4 1000, 99444, 10012, 55681, 32707, 61135 ####[facility].[address] Hemoglobin mass conc (Bld) 14.9 g/dL Normal 12.0-15.0 [facility] Comment on above: Performed By: #### 4 1000, 10490, 52448, 92429, 37054, 93857 ####[facility].[address] IMMATURE GRANS 0.3 % Normal 0.0-1.0 [facility] Comment on above: Performed By: #### 4 1000, 77415, 29799, 24161, 78584, 90643 ####[facility].[address] Lymphocytes Auto #/vol (Bld) 0.9 10*3/uL Low 1.2-4.0 [facility] Comment on above: Performed By: #### 4 1000, 17202, 67416, 60244, 98783, 62874 ####[facility].[address] Lymphocytes/100 WBC Auto (Bld) 14.2 % Low 20.0-45.0 [facility] Comment on above: Performed By: #### 4 1000, 05312, 22284, 72974, 01110, 94401 ####[facility].[address] MCH Auto Entitic mass (RBC) 29.4 pg Normal 27.0-33.0 [facility] Comment on above: Performed By: #### 4 1000, 08855, 83559, 91585, 93406, 19129 ####[facility].[address] MCHC Auto mass conc (RBC) 33.1 g/dL Normal 32.0-35.0 [facility] Comment on above: Performed By: #### 4 1000, 25337, 01138, 25376, 65535, 30842 ####[facility].[address] MCV Auto Entitic volume (RBC) 88.8 fL Normal 82.0-98.0 [facility] Comment on above: Performed By: #### 4 1000, 08066, 71678, 52101, 55826, 00824 ####[facility] [address] Monocytes Auto #/vol (Bld) 0.8 10*3/uL Normal 0.1-1.0 [facility] Comment on above: Performed By: #### 4 1000, 82042, 27293, 84877, 71519, 92359 ####[facility] [place] [address], [facility] MONOS 12.2 % High 5.0-12.0 [facility] Comment on above: Performed By: #### 4 1000, 16256, 77086, 36282, 15884, 01098 ####[facility] [place] [address], [facility] Neutrophils/100 WBC Auto (Bld) 71.3 % Normal 40.0-72.0 [facility] Comment on above: Performed By: #### 4 1000, 81598, 78943, 52022, 84263, 58402 ####[facility] Nucleated RBC/100 WBC Ratio (Bld) 0 % Normal 0-0 [facility] Comment on above: Performed By: #### 4 1000, 40729, 40129, 25840, 30430, 44015 ####[facility].[address] PLAT CNT 215 10*3/uL Normal 150-[address] [facility] Comment on above: Performed By: #### 4 1000, 77043, 29030, 37991, 02659, 73463 ####[facility] [place] [address], [facility] RBC Auto #/vol (Bld) 5.07 10*6/uL High 3.80-5.00 Th e [facility] Comment on above: Performed By: #### 4 1000, 08436, 59378, 88717, 09583, 43985 ####[facility] [place] [address], [facility] WBC Auto #/vol (Bld) 6.5 10*3/uL Normal 4.0-10.6 [facility] Comment on above: Performed By: #### 4 1000, 85460, 61481, 23714, 21405, 93055 ####[facility] COMP METABOLIC PANELon 04-29 Albumin mass conc 4.4 g/dL Normal 3.5-5.7 The [facility] Comment on above: Performed By: #### 4 1000, 87281, 06895, 53425, 01018, 33403 ####[facility] [place] [address], [facility] ALKALINE PHOSPH 114 IU/L High 34-104 The [facility] Comment on above: Performed By: #### 4 1000, 43233, 73507, 85187, 25575, 53816 ####[facility] ALT enzyme act/vol 15 U/L Normal 7-52 The [facility] Comment on above: Performed By: #### 4 1000, 18898, 47711, 31186, 39617, 62584 ####[facility] [place] [address], [facility] AST enzyme act/vol 19 U/L Normal 13-39 The [facility] Comment on above: Performed By: #### 4 1000, 45904, 65233, 94967, 26854, 32825 ####[facility] [place] [address], [facility] Bilirubin mass conc 0.7 mg/dL Normal 0.3-1.0 [facility] Comment on above: Performed By: #### 4 1000, 71716, 14951, 15830, 02206, 00565 ####[facility] [place] [address], [place] Calcium mass conc 9.6 mg/dL Normal 8.6-10.3 The [facility] Comment on above: Performed By: #### 4 1000, 33401, 35432, 90833, 37603, 45929 ####[facility] [place] [address], [place] Chloride molar conc 103 mmol/L Normal 98-107 The [facility] Comment on above: Performed By: #### 4 1000, 16304, 39821, 00350, 67443, 59011 ####[facility] [place] [address], [place] CO2 molar conc 29 mmol/L Normal 21-31 [facility] Comment on above: Performed By: #### 4 1000, 22299, 88534, 08487, 92565, 27027 ####[facility] [place] [address], [place] Creatinine mass conc 0.79 mg/dL Normal 0.60-1.20 The [facility] Comment on above: Performed By: #### 4 1000, 19115, 42326, 14754, 03350, 52193 ####[facility] [place] [address], [place] GFR/1.73 sq M predicted among blacks MDRD vol rate/area (S/P/Bld) mL/min/{1.73_m2} Normal >[address] [facility] Comment on above: Performed By: #### 4 1000, 95067, 76842, 66342, 76860, 86870 ####[facility] [place] [address], [place] GFR/1.73 sq M predicted among non-blacks MDRD vol rate/area (S/P/Bld) mL/min/{1.73_m2} Normal >[address] [facility] Comment on above: Performed By: #### 4 1000, 29233, 59985, 75427, 94755, 75600 ####[facility] [place] [address], [facility] Glucose mass conc 90 mg/dL Normal 70-100 The [facility] Comment on above: Performed By: #### 4 1000, 14589, 26772, 48532, 28709, 66850 ####[facility] [place] [address], [facility] Potassium molar conc 3.8 mmol/L Normal 3.5-5.1 The [facility] Comment on above: Performed By: #### 4 1000, 31454, 43612, 21389, 98321, 56127 ####[facility] [place] [address], [facility] Protein mass conc 7.2 g/dL Normal 6.0-8.3 The [facility] Comment on above: Performed By: #### 4 1000, 83253, 02829, 25566, 42064, 03619 ####[facility] [place] [address], [facility] Sodium molar conc 140 mmol/L Normal 136-145 The [facility] Comment on above: Performed By: #### 4 1000, 14392, 52424, 87753, 39258, 92492 ####[facility] [place] [address], [facility] Urea nitrogen mass conc 15 mg/dL Normal 7-25 The [facility] Comment on above: Performed By: #### 4 1000, 23712, 69402, 58432, 97008, 18412 ####[facility] [id number], [facility] DIRECT BILIon 04-29-2017 Bilirubin.direct mass conc 0.1 mg/dL Normal 0.0-0.2 The [facility] Comment on above: Order Comment: Liver Battery conflicts with Comprehensive Metabolic Panel. Liver Battery canceled and Direct Bilirubin added. Performed By: #### 4 1000, 11696, 09077, 13572, 24485, 17834 ####[facility] [address] EVEROLIMUS [id number] 8 EVEROLIMUS 5.4 ng/mL Normal The [facility] Comment on above: Result Comment: Ther [...] the transplantcenter.Test developed and characteristics determined by [facility]. See Compliance Statement B: [facility]/CSPerformed by [employer],[address] [place] [id number] hkj.[facility], Leonid Antonio MD - Lab. Director LIPID PROFILEon 04-29-2017 Cholesterol in HDL mass conc 49 mg/dL Normal 23-92 The [facility] Comment on above: Result Comment: Slig ht variation in normal range could be due to gender and/or age.HDL CHOLESTEROL REFERENCE RANGE:20 years and older Cardiovascular Risk> or =60 mg/dL Kulnndsxj01 TO 59 mg/dL Low Risk<40 mg/dL High Risk Performed By: #### 4 1000, 84551, 14678, 93318, 31105, 60401 ####[facility] [place] [address], [facility] Cholesterol in LDL mass conc 52 mg/dL Normal 0-130 The [facility] Comment on above: Result Comment: LDL IS A CALCULATIONLDL IS ONLY VALID IF THE TRIG IS LESS THAN 400. Performed By: #### 4 1000, 86390, 33454, 14157, 37339, 85027 ####[facility] [place] [address], [facility] Cholesterol mass conc 122 mg/dL Normal 120-200 The [facility] Comment on above: Result Comment: CHOL ESTEROL REFERENCE RANGE:20 YEARS AND OLDER CARDIOVASCULAR RISKLess than 200 mg/dl Low Ehbf055 to 239 mg/dl Borderline Keue980 mg/dl and greater High Risk Performed By: #### 4 1000, 89929, 00035, 95201, 88143, 54495 ####[place] [address] [facility] [place] [address], [facility] Cholesterol.total/Cho lesterol in HDL mass ratio 2.5 {ratio} Normal .0-4.5 The [facility] Comment on above: Performed By: #### 4 1000, 02016, 35247, 35069, 60060, 56733 ####[id number] [place] [address], [facility] NON-HDL CHOLESTEROL 73 mg/dL Normal [facility] Comment on above: Performed By: #### 4 1000, 83050, 48968, 13724, 76756, 30752 ####[id number] [place] [address], [facility] Triglyceride mass conc 106 mg/dL Normal 40-149 [facility] Comment on above: Result Comment: TRIG LYCERIDE REFERENCE RANGE:20 YEARS AND OLDER CARDIOVASCULAR RISKLESS THAN 150 mg/dl LOW [id number] TO 199 mg/dl BORDERLINE [id number] mg/dl AND GREATER HIGH RISK Performed By: #### 4 1000, 73787, 64207, 80461, 07853, 80600 ####[id number] VLDL CHOL 21 mg/dL Normal 0-40 [facility] Comment on above: Performed By: #### 4 1000, 90563, 65747, 71641, 82290, 85390 ####[facility].[address] MAGNESIUM BLOODon 04-29-2017 Magnesium mass conc 2.1 mg/dL Normal 1.9-2.7 [facility] Comment on above: Performed By: #### 4 1000, 25231, 49627, 23520, 74845, 04180 ####[facility] [place] [address], [facility] PHOSPHORUS BLOODon 8 Phosphate mass conc 3.3 mg/dL Normal 2.5-5.0 [facility] Comment on above: Performed By: #### 4 1000, 19415, 60724, 83176, 56483, 67126 ####[facility].[address] TACROLIMUSon 04-29-2017 Tacrolimus mass conc (Bld) 4.6 ng/mL Low 5.0-20.0 [facility] Comment on above: Result Comment: The [facility] Tacrolimus assay is a delayed one-step immunoassayfor the quantitative determination of tacrolimus in human whole bloodusing the chemiluminescent microparticle immunoassay (CMIA) technologywith flexible assay protocols, referred to as Chemiflex. Performed By: #### 4 1000, 23470, 34749, 91201, 50202, 58539 ####[facility] [place] [address], [facility] URIC ACID BLOODon 04-29-2017 Urate mass conc 4.6 mg/dL Normal 2.3-6.6 [facility] Comment on above: Performed By: #### 4 1000, 63970, 07542, 03316, 84915, 17317 ####[facility].[address] CBC W/DIFFon 03-27-2017 Basophils Auto #/vol (Bld) 0.2 % Normal 0.0-2.0 [facility] Comment on above: Performed By: #### 4 1000, 37824, 70093, 21822, 54297, 06490 ####[facility] [place] [address], [facility] Eosinophils/100 WBC Auto (Bld) 1.8 % Normal 0.0-5.0 [facility] Comment on above: Performed By: #### 4 1000, 62707, 13030, 05529, 51641, 24919 ####[facility] Erythrocyte distribution width Auto Ratio (RBC) 13.6 % Normal 11.5-16.9 [facility] Comment on above: Performed By: #### 4 1000, 51724, 12238, 22182, 97621, 51323 ####[facility] Hematocrit Auto Volume Fraction (Bld) 47.6 % Normal 36.0-48.0 [facility] Comment on above: Performed By: #### 4 1000, 71296, 67265, 94088, 48044, 38400 ####[facility] Hemoglobin mass conc (Bld) 15.8 g/dL High 12.0-15.0 [facility] Comment on above: Performed By: #### 4 1000, 29272, 22532, 48313, 70124, 07774 ####[facility] [place] [address], [facility] Lymphocytes/100 WBC Auto (Bld) 14.5 % Low 20.0-40.0 [facility] Comment on above: Performed By: #### 4 1000, 09446, 56049, 53251, 41516, 68871 ####[facility] MCH Auto Entitic mass (RBC) 29.0 pg Normal 24.0-32.0 [facility] Comment on above: Performed By: #### 4 1000, 81160, 18224, 07428, 77078, 90308 ####[facility] MCHC Auto mass conc (RBC) 33.3 g/dL Normal 32.0-36.0 [facility] Comment on above: Performed By: #### 4 1000, 89216, 21935, 17941, 59735, 69828 ####[facility] MCV Auto Entitic volume (RBC) 87.4 fL Normal 80.0-100.0 [facility] Comment on above: Performed By: #### 4 1000, 84989, 98741, 80244, 87942, 46021 ####[facility] METHOD Normal RBC Morphology Normal [facility] Comment on above: Performed By: #### 4 1000, 89845, 95063, 15677, 17270, 82668 ####[facility] MONOS 9.6 % High 2-8 [facility] Comment on above: Performed By: #### 4 1000, 81806, 34892, 59186, 53640, 01458 ####[facility] Neutrophils/100 WBC Auto (Bld) 73.9 % High 50-70 [facility] Comment on above: Performed By: #### 4 1000, 15303, 29100, 99613, 51953, 39799 ####[facility] [place] [address], [facility] PLAT CNT 228 Thou/mm3 Normal 100-400 [facility] Comment on above: Performed By: #### 4 1000, 30780, 52187, 97090, 83452, 74214 ####[facility] [place] [address], [facility] RBC Auto #/vol (Bld) 5.45 mill/mm3 Normal 3.50-5.50 T [facility] Comment on above: Performed By: #### 4 1000, 29679, 93093, 47476, 44485, 01373 ####[facility] [place] [address], [facility] WBC Auto #/vol (Bld) 6.5 Thou/mm3 Normal 4.0-10.0 Th [facility] Comment on above: Performed By: #### 4 1000, 11384, 60632, 94304, 93410, 48053 ####[facility].[address] COMP METABOLIC PANELon 03-27 Albumin mass conc 4.7 g/dL Normal 3.5-5.7 [facility] Comment on above: Performed By: #### 4 1000, 39247, 14042, 69541, 25295, 25832 ####[place] [address] [facility].[address] ALKALINE PHOSPH 99 IU/L Normal 34-104 [facility] Comment on above: Performed By: #### 4 1000, 60096, 03691, 87994, 32003, 42676 ####[facility].[address] ALT enzyme act/vol 19 U/L Normal 7-52 The [facility] Comment on above: Performed By: #### 4 1000, 76760, 94057, 14824, 17527, 47853 ####[facility] [place] [address], [facility] AST enzyme act/vol 21 U/L Normal 13-39 [facility] Comment on above: Performed By: #### 4 1000, 69217, 49155, 44145, 56597, 77466 ####[facility] [place] [address], [place] Bilirubin mass conc 0.6 mg/dL Normal 0.3-1.0 [facility] Comment on above: Performed By: #### 4 1000, 46551, 84589, 53457, 11062, 23224 ####[facility] [place] [address], [facility] Calcium mass conc 10.2 mg/dL Normal 8.6-10.3 [facility] Comment on above: Performed By: #### 4 1000, 54253, 22308, 15632, 43925, 34225 ####[facility] [place] [address], [facility] Chloride molar conc 104 mmol/L Normal 98-107 [facility] Comment on above: Performed By: #### 4 1000, 44687, 99399, 12063, 12202, 27553 ####[facility] [place] [address], [place] CO2 molar conc 28 mmol/L Normal 21-31 [facility] Comment on above: Performed By: #### 4 1000, 81650, 95898, 66305, 24589, 34871 ####[facility] [place] [address], [place] Creatinine mass conc 0.78 mg/dL Normal 0.60-1.20 [facility] Comment on above: Performed By: #### 4 1000, 57795, 05460, 91872, 17810, 48249 ####[facility] [place] [address], [facility] GFR/1.73 sq M predicted among blacks MDRD vol rate/area (S/P/Bld) mL/min/{1.73_m2} Normal >[address] [facility] Comment on above: Performed By: #### 4 1000, 86276, 37406, 40239, 83580, 83464 ####[facility] [place] [address], [facility] GFR/1.73 sq M predicted among non-blacks MDRD vol rate/area (S/P/Bld) mL/min/{1.73_m2} Normal >[address] [facility] Comment on above: Performed By: #### 4 1000, 69941, 07290, 64620, 23642, 19185 ####[facility] [place] [address], [facility] Glucose mass conc 87 mg/dL Normal 70-100 [facility] Comment on above: Performed By: #### 4 1000, 87128, 16778, 96575, 41043, 18783 ####[facility] [place] [address], [facility] Potassium molar conc 4.1 mmol/L Normal 3.5-5.1 [facility] Comment on above: Performed By: #### 4 1000, 61305, 16472, 87490, 76605, 91234 ####[facility] [place] [address], [facility] Protein mass conc 7.8 g/dL Normal 6.0-8.3 [facility] Comment on above: Performed By: #### 4 1000, 04881, 96843, 54957, 67933, 53979 ####[facility] [place] [address], [place] Sodium molar conc 139 mmol/L Normal 136-145 [facility] Comment on above: Performed By: #### 4 1000, 14084, 13188, 34470, 11128, 66032 ####[facility].[address] Urea nitrogen mass conc 19 mg/dL Normal 7-25 [facility] Comment on above: Performed By: #### 4 1000, 61076, 29292, 56724, 43959, 13175 ####[facility].[address] DIRECT BILIon 03-27-2017 Bilirubin.direct mass conc 0.1 mg/dL Normal 0.0-0.2 [facility] Comment on above: Performed By: #### 4 1000, 51186, 47267, 21847, 29912, 59255 ####[facility].[address] EVEROLIMUS [id number] 7 EVEROLIMUS 5.3 ng/mL Normal [facility] Comment on above: Result Comment: Ther [...] the transplantcenter.Test developed and characteristics determined by [employer]. See Compliance Statement B: [email or web address] by [employer],[address], [facility] [place] [id number] bzn.Eyeona, Leonid Antonio MD - Lab. Director LIPID PROFILEon 03-27-2017 Cholesterol in HDL mass conc 50 mg/dL Normal 23-92 [facility] Comment on above: Result Comment: Slig ht variation in normal range could be due to gender and/or age.HDL CHOLESTEROL REFERENCE RANGE:20 years and older Cardiovascular Risk> or =60 mg/dL [id number] TO 59 mg/dL Low Risk<40 mg/dL High Risk Performed By: #### 4 1000, 38794, 65407, 21829, 98931, 71931 ####[facility] [place] [address], [facility] Cholesterol in LDL mass conc 66 mg/dL Normal 0-130 [facility] Comment on above: Result Comment: LDL IS A CALCULATIONLDL IS ONLY VALID IF THE TRIG IS LESS THAN 400. Performed By: #### 4 1000, 22426, 61931, 16381, 35904, 16813 ####[facility] [place] [address], [place] Cholesterol mass conc 147 mg/dL Normal 120-200 [facility] Comment on above: Result Comment: CHOL ESTEROL REFERENCE RANGE:20 YEARS AND OLDER CARDIOVASCULAR RISKLess than 200 mg/dl Low Znln198 to 239 mg/dl Borderline Joem406 mg/dl and greater High Risk Performed By: #### 4 1000, 89511, 23679, 16113, 07210, 14853 ####[facility] [place] [address], [place] Cholesterol.total/Cho lesterol in HDL mass ratio 2.9 {ratio} Normal .0-4.5 [facility] Comment on above: Performed By: #### 4 1000, 94029, 69425, 09434, 65388, 54582 ####[facility] [place] [address], [place] NON-HDL CHOLESTEROL 97 mg/dL Normal [facility] Comment on above: Performed By: #### 4 1000, 38902, 76176, 06689, 95051, 08910 ####[facility] Triglyceride mass conc 157 mg/dL High 40-149 [facility] Comment on above: Result Comment: TRIG LYCERIDE REFERENCE RANGE:20 YEARS AND OLDER CARDIOVASCULAR RISKLESS THAN 150 mg/dl LOW [id number] TO 199 mg/dl BORDERLINE [id number] mg/dl AND GREATER HIGH RISK Performed By: #### 4 1000, 56869, 66395, 18280, 23374, 41452 ####[facility] VLDL CHOL 31 mg/dL Normal 0-40 [facility] Comment on above: Performed By: #### 4 1000, 74293, 72271, 36162, 47299, 46905 ####[facility] MAGNESIUM BLOODon 03-27-2017 Magnesium mass conc 1.9 mg/dL Normal 1.9-2.7 [facility] Comment on above: Performed By: #### 4 1000, 43941, 90988, 19860, 13611, 60361 ####[facility] PHOSPHORUS BLOODon 7 Phosphate mass conc 3.4 mg/dL Normal 2.5-5.0 [facility] Comment on above: Performed By: #### 4 1000, 85255, 98263, 72056, 78688, 56932 ####[facility] TACROLIMUSon 03-27-2017 Tacrolimus mass conc (Bld) 3.7 ng/mL Low 5.0-20.0 [facility] Comment on above: Result Comment: The [facility] Tacrolimus assay is a delayed one-step immunoassayfor the quantitative determination of tacrolimus in human whole bloodusing the chemiluminescent microparticle immunoassay (CMIA) technologywith flexible assay protocols, referred to as Chemiflex. Performed By: #### 4 1000, 33243, 26919, 85089, 24080, 05392 ####[facility].[address] URIC ACID BLOODon 03-27-2017 Urate mass conc 4.1 mg/dL Normal 2.3-6.6 [facility] Comment on above: Performed By: #### 4 1000, 66337, 12920, 52909, 93093, 61259 ####[facility].[address] BK VIRUS QUANTITATION PCR BL OODon 02-26-2017 BKV QUANT PCR Not detected Normal [facility] Comment on above: Result Comment: Meth od: BK virus was measured by quantitative polymerase chain reactionusing a TaqMan probe targeting the polyomavirus BK GATE OPERATOR-1 gene.The lower limit of quantitation of the assay is 500 copies of BK genomeper milliliter of plasma or urine, and any detectable BK DNA below thatlevel is reported as: Detected, <500 copies/ml. Serial BK virusmeasurement can be used to monitor disease activity. (Reference:Kelsie vaughanl. J CLIN MICRO 2004; 42:7942-0106).This test was developed and its performance characteristics determinedby the [facility] Molecular Diagnostics Laboratory. It has not been approvedby the [place] Food and Drug Administration. However, such approval is notrequired for clinical implementation, and test results have been shownto be clinically useful. This laboratory is CAP accredited and CLIAcertified to perform high complexity testing. Performed By: #### 4 1000, 68750, 66637, 75527, 15701, 31524 ####[facility] [address] LOG 10 COPIES Not detected Normal [facility] Comment on above: Performed By: #### 4 1000, 03562, 34013, 08989, 99517, 95723 ####[facility] [address] CBC W/DIFFon 02-26-2017 Basophils Auto #/vol (Bld) 0.3 % Normal 0.0-2.0 [facility] Comment on above: Performed By: #### 5 0103 ####[address] Eosinophils/100 WBC Auto (Bld) 2.2 % Normal 0.0-5.0 [facility] Comment on above: Performed By: #### 5 3 ####[address] Erythrocyte distribution width Auto Ratio (RBC) 13.8 % Normal 11.5-16.9 [facility] Comment on above: Performed By: #### 102 ####[address] Hematocrit Auto Volume Fraction (Bld) 44.9 % Normal 36.0-48.0 [facility] Comment on above: Performed By: #### 5 3 ####[address] Hemoglobin mass conc (Bld) 15.0 g/dL Normal 12.0-15.0 [facility] Comment on above: Performed By: #### 5 3 ####[place] [address] [facility].[address] Lymphocytes/100 WBC Auto (Bld) 18.9 % Low 20.0-40.0 [facility] Comment on above: Performed By: #### 5 3 ####[place] [address] [address] MCH Auto Entitic mass (RBC) 28.9 pg Normal 24.0-32.0 [facility] Comment on above: Performed By: #### 5 3 ####[facility] [place] [address], [facility] MCHC Auto mass conc (RBC) 33.4 g/dL Normal 32.0-36.0 [facility] Comment on above: Performed By: #### 102 ####[facility] [place] [address], [facility] MCV Auto Entitic volume (RBC) 86.6 fL Normal 80.0-100.0 [facility] Comment on above: Performed By: #### 3 ####[facility] [place] [address], [facility] METHOD Normal RBC Morphology Normal [facility] Comment on above: Performed By: #### 102 ####[facility] [place] [address], [facility] MONOS 11.7 % High 2-8 [facility] Comment on above: Performed By: #### 102 ####[facility] [place] [address], [facility] Neutrophils/100 WBC Auto (Bld) 66.9 % Normal 50-70 [facility] Comment on above: Performed By: #### 102 ####[facility] [place] [address], [facility] PLAT CNT 230 Thou/mm3 Normal 100-400 [facility] Comment on above: Performed By: #### 102 ####[facility] [place] [address], [facility] RBC Auto #/vol (Bld) 5.18 mill/mm3 Normal 3.50-5.50 T [facility] Comment on above: Performed By: #### 102 ####[facility] [place] [address], [facility] WBC Auto #/vol (Bld) 5.8 Thou/mm3 Normal 4.0-10.0 Th [facility] Comment on above: Performed By: #### 5 0103 ####[facility] COMP METABOLIC PANELon 02-26 Albumin mass conc 4.7 g/dL Normal 3.5-5.7 [facility] Comment on above: Performed By: #### 4 1000, 79833, 73710, 14606, 68768, 61501 ####[facility] ALKALINE PHOSPH 115 IU/L High 34-104 [facility] Comment on above: Performed By: #### 4 1000, 69392, 00997, 11695, 63716, 22928 ####[facility] ALT enzyme act/vol 18 U/L Normal 7-52 [facility] Comment on above: Performed By: #### 4 1000, 12576, 83475, 20373, 08639, 02737 ####[facility] AST enzyme act/vol 22 U/L Normal 13-39 [facility] Comment on above: Performed By: #### 4 1000, 14463, 23798, 89833, 60702, 32892 ####[facility] [place] [address], [facility] Bilirubin mass conc 0.6 mg/dL Normal 0.3-1.0 [facility] Comment on above: Performed By: #### 4 1000, 65234, 94122, 00146, 06274, 03703 ####[facility] [place] [address], [facility] Calcium mass conc 9.8 mg/dL Normal 8.6-10.3 [facility] Comment on above: Performed By: #### 4 1000, 17546, 81013, 09970, 10399, 73714 ####[facility] [place] [address], [facility] Chloride molar conc 103 mmol/L Normal 98-107 [facility] Comment on above: Performed By: #### 4 1000, 98117, 63957, 61719, 59317, 71208 ####[facility] [place] [address], [place] CO2 molar conc 29 mmol/L Normal 21-31 [facility] Comment on above: Performed By: #### 4 1000, 17607, 09847, 70184, 27973, 67189 ####[facility] [place] [address], [place] Creatinine mass conc 0.78 mg/dL Normal 0.60-1.20 [facility] Comment on above: Performed By: #### 4 1000, 11199, 75835, 28764, 82480, 87596 ####[facility] [place] [address], [place] GFR/1.73 sq M predicted among blacks MDRD vol rate/area (S/P/Bld) mL/min/{1.73_m2} Normal >[address] [facility] Comment on above: Performed By: #### 4 1000, 30097, 12237, 70950, 65505, 55204 ####[facility] [place] [address], [place] GFR/1.73 sq M predicted among non-blacks MDRD vol rate/area (S/P/Bld) mL/min/{1.73_m2} Normal >[address] [facility] Comment on above: Performed By: #### 4 1000, 63644, 11414, 61710, 56903, 53956 ####[facility] [place] [address], [facility] Glucose mass conc 94 mg/dL Normal 70-100 [facility] Comment on above: Performed By: #### 4 1000, 31637, 15534, 87096, 00227, 74157 ####[facility] [place] [address], [facility] Potassium molar conc 3.8 mmol/L Normal 3.5-5.1 [facility] Comment on above: Performed By: #### 4 1000, 54024, 42804, 35808, 08871, 80596 ####[facility] [place] [address], [facility] Protein mass conc 7.4 g/dL Normal 6.0-8.3 [facility] Comment on above: Performed By: #### 4 1000, 70989, 73674, 89975, 14421, 72055 ####[place] [address] [place] [address], [facility] Sodium molar conc 136 mmol/L Normal 136-145 [facility] Comment on above: Performed By: #### 4 1000, 00595, 23037, 63589, 68409, 13451 ####[place] [address] [place] [address], [facility] Urea nitrogen mass conc 19 mg/dL Normal 7-25 [facility] Comment on above: Performed By: #### 4 1000, 62935, 77608, 25214, 56687, 38106 ####[facility] [place] [address], [facility] DIRECT BILIon 02-26-2017 Bilirubin.direct mass conc 0.1 mg/dL Normal 0.0-0.2 [facility] Comment on above: Performed By: #### 4 1000, 56142, 49778, 10083, 77521, 07067 ####[facility] EVEROLIMUS 33927as 7 EVEROLIMUS 5.9 ng/mL Normal [facility] Comment on above: Result [...] the transplantcenter.Test developed and characteristics determined by [employer]. See Compliance Statement B: [email or web address] by [employer],[address] [place] [id number] opn.Eyeona, Leonid Antonio MD - Lab. Director HEMOGLOBIN A1Con 02-26-2017 Glucose mass conc 108 mg/dL Normal 70-126 [facility] Comment on above: Performed By: #### 3 0340, 69454 ####[facility] [place] [address], [facility] Hemoglobin A1c/Hemoglobin.total mass fraction (Bld) 5.4 % Normal 4.0-6.0 [facility] Comment on above: Performed By: #### 4 3651, 14309 ####[facility] [place] [address], [facility] LIPID PROFILEon 02-26-2017 Cholesterol in HDL mass conc 54 mg/dL Normal 23-92 [facility] Comment on above: Result Comment: Slig ht variation in normal range could be due to gender and/or age.HDL CHOLESTEROL REFERENCE RANGE:20 years and older Cardiovascular Risk> or =60 mg/dL [id number] TO 59 mg/dL Low Risk<40 mg/dL High Risk Performed By: #### 4 1000, 83907, 67391, 90597, 61437, 74720 ####[facility] [place] [address], [facility] Cholesterol in LDL mass conc 70 mg/dL Normal 0-130 [facility] Comment on above: Result Comment: LDL IS A CALCULATIONLDL IS ONLY VALID IF THE TRIG IS LESS THAN 400. Performed By: #### 4 1000, 20822, 81486, 39855, 76911, 10280 ####[facility] [place] [address], [facility] Cholesterol mass conc 144 mg/dL Normal 120-200 [facility] Comment on above: Result Comment: CHOL ESTEROL REFERENCE RANGE:20 YEARS AND OLDER CARDIOVASCULAR RISKLess than 200 mg/dl Low Qiph116 to 239 mg/dl Borderline Subm233 mg/dl and greater High Risk Performed By: #### 4 1000, 83635, 60525, 34761, 49826, 07948 ####[facility] [place] [address], [place] Cholesterol.total/Cho lesterol in HDL mass ratio 2.7 {ratio} Normal .0-4.5 [facility] Comment on above: Performed By: #### 4 1000, 08693, 81868, 16060, 31249, 01914 ####[facility] [place] [address], [place] NON-HDL CHOLESTEROL 90 mg/dL Normal [facility] Comment on above: Performed By: #### 4 1000, 05181, 65014, 04808, 84657, 21310 ####[facility] [place] [address], [place] Triglyceride mass conc 101 mg/dL Normal 40-149 [facility] Comment on above: Result Comment: TRIG LYCERIDE REFERENCE RANGE:20 YEARS AND OLDER CARDIOVASCULAR RISKLESS THAN 150 mg/dl LOW [id number] TO 199 mg/dl BORDERLINE DHSS579 mg/dl AND GREATER HIGH RISK Performed By: #### 4 1000, 80164, 67992, 99544, 19545, 75780 ####[facility].[address] VLDL CHOL 20 mg/dL Normal 0-40 [facility] Comment on above: Performed By: #### 4 1000, 40716, 55778, 17033, 25674, 22467 ####[facility].[address] MAGNESIUM BLOODon 02-26-2017 Magnesium mass conc 1.9 mg/dL Normal 1.9-2.7 [facility] Comment on above: Performed By: #### 4 1000, 00790, 21327, 10002, 01619, 48208 ####[facility].[address] PHOSPHORUS BLOODon 7 Phosphate mass conc 4.1 mg/dL Normal 2.5-5.0 [facility] Comment on above: Performed By: #### 4 1000, 89254, 51750, 78888, 33706, 67631 ####[facility].[address] TACROLIMUSon 02-26-2017 Tacrolimus mass conc (Bld) 4.2 ng/mL Low 5.0-20.0 [facility] Comment on above: Result Comment: The [facility] Tacrolimus assay is a delayed one-step immunoassayfor the quantitative determination of tacrolimus in human whole bloodusing the chemiluminescent microparticle immunoassay (CMIA) technologywith flexible assay protocols, referred to as Chemiflex. Performed By: #### 4 [id number] ####[id number].[address] URIC ACID BLOODon 02-26-2017 Urate mass conc 4.3 mg/dL Normal 2.3-6.6 [facility] Comment on above: Performed By: #### 4 1000, [id number], [id number], [id number], 86208, [id number] ####[id number] [address]RI[address] Vital Signs Date Time Vital Sign Value Performing Clinician Facility 06-01-2024 13:05-0500 Body height 152.4 cm Ester Hemmer PA Work Phone: [facility] 06-01-2024 13:05-0500 Body mass index (BMI) [Ratio] 24.65 kg/m2 Ester Hemmer PA Work Phone: [facility] 06-01-2024 13:05-0500 Body temperature 98.29 [degF] Ester Hemmer PA Work Phone: [facility] 06-01-2024 13:05-0500 Body weight 57.24 kg Ester Hemmer PA Work Phone: [facility] 06-01-2024 13:05-0500 Diastolic blood pressure 74 mm[Hg] Ester Hemmer PA Work Phone: [facility] 06-01-2024 13:05-0500 Heart rate 69 /min Ester Hemmer PA Work Phone: [facility] 06-01-2024 13:05-0500 Respiratory rate 16 /min Ester Hemmer PA Work Phone: [facility] 06-01-2024 13:05-0500 SaO2% (BldA) [Mass fraction] 95 % Ester Hemmer PA Work Phone: [facility] 06-01-2024 13:05-0500 Systolic blood pressure 112 mm[Hg] Ester Hemmer PA Work Phone: [facility] 08-30-2023 09:22-0400 Body height 182.88 cm [facility] 08-30-2023 09:22-0400 Body mass index (BMI) [Ratio] 17.9 kg/m2 [facility] 08-30-2023 09:22-0400 Body temperature 99.8 [degF] [facility] 08-30-2023 09:22-0400 Body weight 59.87 kg [facility] 08-30-2023 09:22-0400 Diastolic blood pressure 73 mm[Hg] [facility] 08-30-2023 09:22-0400 Heart rate 67 /min [facility] 08-30-2023 09:22-0400 SaO2% (BldA) [Mass fraction] 95 % [facility] 08-30-2023 09:22-0400 Systolic blood pressure 111 mm[Hg] [facility] 03-27-2023 11:30-0500 Body height 152.4 cm Cathy Bella Other [facility] Other 03-27-2023 11:30-0500 Body mass index (BMI) [Ratio] 25.39 kg/m2 Cathy Shayne Other [facility] Other 03-27-2023 11:30-0500 Body temperature 97.5 [degF] Cathy Bella Other [facility] Other 03-27-2023 11:30-0500 Body weight 58.97 kg Cathy Bella Other [facility] Other 03-27-2023 11:30-0500 Respiratory rate 18 /min Cathy Bella Other [facility] Other 03-27-2023 11:30-0500 SaO2% (BldA) [Mass fraction] 96 % Cathy Bella Other [facility] Other 09-21-2022 09:00-0400 Body height 152.4 cm Martha Guevara Other [facility] Other 09-21-2022 09:00-0400 Body mass index (BMI) [Ratio] 22.46 kg/m2 Martha Guevara Other [facility] Other 09-21-2022 09:00-0400 Body temperature 97.6 [degF] Martha Guevara Other [facility] Other 09-21-2022 09:00-0400 Body weight 52.16 kg Martha Guevara Other [facility] Other 09-21-2022 09:00-0400 Diastolic blood pressure 70 mm[Hg] Martha Guevara Other [facility] Other 09-21-2022 09:00-0400 Respiratory rate 18 /min Martha Guevara Other [facility] Other 09-21-2022 09:00-0400 SaO2% (BldA) [Mass fraction] 96 % Martha Guevara Other [facility] Other 09-21-2022 09:00-0400 Systolic blood pressure 107 mm[Hg] Martha Guevara Other [facility] Other 01-12-2022 13:55-0400 Body height 152.4 cm Cathy Bella Other [facility] Other 01-12-2022 13:55-0400 Body mass index (BMI) [Ratio] 19.53 kg/m2 Cathy Bella Other [facility] Other 01-12-2022 13:55-0400 Body temperature 96.9 [degF] Cathy Bella Other [facility] Other 01-12-2022 13:55-0400 Body weight 45.36 kg Cathy Shayne Other [facility] Other 01-12-2022 13:55-0400 Respiratory rate 18 /min Cathy Shayne Other [facility] Other 01-12-2022 13:55-0400 SaO2% (BldA) [Mass fraction] 97 % Cathy Shayne Other [facility] Other 12-28-2021 10:20-0400 Body height 152.4 cm Martha Smithmond Other [facility] Other 12-28-2021 10:20-0400 Body mass index (BMI) [Ratio] 21.48 kg/m2 Martha Paola Other [facility] Other 12-28-2021 10:20-0400 Body temperature 98 [degF] Martha Paola Other [facility] Other 12-28-2021 10:20-0400 Body weight 49.9 kg Martha Paola Other [facility] Other 12-28-2021 10:20-0400 Respiratory rate 18 /min Martha Paola Other [facility] Other 12-28-2021 10:20-0400 SaO2% (BldA) [Mass fraction] 97 % Martha Paola Other [facility] Other 09-27-2022 10:05-0400 Body height 152.4 cm Catyh Bella Other [facility] Other 12-25-2021 10:05-0400 Body mass index (BMI) [Ratio] 21.48 kg/m2 Cathy Bella Other [facility] Other 12-25-2021 10:05-0400 Body temperature 96 [degF] Cathy Bella Other [facility] Other 12-25-2021 10:05-0400 Body weight 49.9 kg Cathy Bella Other [facility] Other 12-25-2021 10:05-0400 Respiratory rate 18 /min Cathy Bella Other [facility] Other 12-25-2021 10:05-0400 SaO2% (BldA) [Mass fraction] 97 % Cathy Bella Other [facility] Other 10-27-2021 12:35-0400 Body height 152.4 cm Cathy Bella Other [facility] Other 10-27-2021 12:35-0400 Body mass index (BMI) [Ratio] 22.85 kg/m2 Cathy Bella Other [facility] Other 10-27-2021 12:35-0400 Body weight 53.07 kg Cathy Bella Other [facility] Other 10-27-2021 12:35-0400 Diastolic blood pressure 87 mm[Hg] Cathy Bella Other [facility] Other 10-27-2021 12:35-0400 SaO2% (BldA) [Mass fraction] 98 % Cathy Bella Other [facility] Other 10-27-2021 12:35-0400 Systolic blood pressure 130 mm[Hg] Cathy Bella Other [facility] Other 08-14-2021 10:40-0400 Body height 152.4 cm Martha Smithmond Other [facility] Other 08-14-2021 10:40-0400 Body mass index (BMI) [Ratio] 22.46 kg/m2 Martha Smithmond Other [facility] Other 08-14-2021 10:40-0400 Body temperature 96.7 [degF] Martha Smithmond Other [facility] Other 08-14-2021 10:40-0400 Body weight 52.16 kg Mratha Smithmond Other [facility] Other 08-14-2021 10:40-0400 Diastolic blood pressure 68 mm[Hg] Martha Smithmond Other [facility] Other 08-14-2021 10:40-0400 Respiratory rate 20 /min Martha Smithmond Other [facility] Other 08-14-2021 10:40-0400 SaO2% (BldA) [Mass fraction] 98 % Martha Paola Other [facility] Other 08-14-2021 10:40-0400 Systolic blood pressure 144 mm[Hg] Martha Paola Other [facility] Other Encounters Encounter Date Encounter Type Care Provider Facility Start: 10-14-2024 End: 10-14-2024 Telephone encounter Ester STEIN Work Phone: [facility] Start: 09-29-2024 End: 09-29-2024 ambulatory [facility] Start: 09-22-2024 End: 09-22-2024 Clinisync Result Encounter Generic External Data Provider [facility] Unsolicited Start: 09-22-2024 End: 09-22-2024 Clinisync Result Encounter Generic External Data Provider [...] External Department Unsolicited Start: 06-01-2024 End: 06-01-2024 Bamboo flowsheet Ester [...] major depressive disorder without prior episode (HCC) (CMS/HCC); Elevated alkaline phosphatase level; Estrogen deficiency; Generalized anxiety disorder (CMS/HCC); Hypercholesteremia (CMS/HCC); Hypomagnesemia; Renal transplant recipient ([facility]/HCC) Start: 06-01-2024 End: 06-01-2024 ambulatory ESTER PADILLA [...] Department Unsolicited Start: 04-01-2024 End: 04-01-2024 ambulatory [facility] Start: 03-19-2024 End: 03-19-2024 Clinisync Result Encounter [...] Data Provider [facility] Unsolicited Start: 09-02-2023 End: 09-02-2023 ambulatory ESTER PADILLA Not Available Start: 08-30-2023 End: 08-30-2023 ambulatory [facility] Work Phone: Start: 08-30-2023 End: 08-30-2023 Patient encounter procedure [facility] Work Phone: Start: 03-27-2023 End: 03-27-2023 ambulatory Cathy Bella Other [facility] Other Start: 03-27-2023 Office outpatient vi sit 25 minutes Cathy Shayne [facility] Start: 09-21-2022 End: 09-21-2022 ambulatory Martha Guevara Other [facility] Other Start: 09-21-2022 Office outpatient vi sit 15 minutes Marthajd Guevara [facility] Start: 08-12-2022 End: 08-13-[address] DORY BARNES Facility:[facility]1 Start: 07-23-2022 End: 07-24-[address] RAMON CARROLL Facility:[facility] Start: 07-08-2022 End: 07-09-[address] RAMON CARROLL Facility:[facility] Start: 06-10-2022 End: 06-11-[address] DORY BARNES Facility:[facility] Start: 05-10-2022 End: 05-11-[address] DORY BARNES Facility:[facility] Start: 04-08-2022 End: 04-09-[address] DORY BARNES Facility:[facility] Start: 03-11-2022 End: 03-12-[address] DOCTOR CERNA Facility:[facility] Start: 02-08-2022 End: 02-09-[address] DORY BARNES Facility:[facility] Start: 01-28-2022 End: 01-29-[address] DOCTOR CERNA Facility:[facility] Start: 01-12-2022 End: 01-12-2022 ambulatory Cathy Bella Other [facility] Other Start: 01-12-2022 Office outpatient vi sit 15 minutes Cathy Shayne [facility] Start: 01-07-2022 End: 01-07-2022 ambulatory ISATU GUAMAN . Facility:[facility] Start: 01-03-2022 End: 01-04-[address] SCOUT SWIFT Facility:[facility] Start: 12-28-2021 End: 12-28-2021 ambulatory Martha Guevara Other [facility] Other Start: 12-28-2021 Office outpatient vi sit 15 minutes Martha Paola [facility] Start: 12-25-2021 End: 12-25-2021 ambulatory Cathy Bella Other [facility] Other Start: 12-25-2021 Office outpatient vi sit 25 minutes Cathy Shayne [facility] Start: 12-05-2021 End: 12-06-[address] DOCTOR SHAWC Facility:[facility] Start: 11-07-2021 End: 11-08-[address] OBRIEN MISC Facility:[facility] Start: 10-27-2021 End: 10-27-2021 ambulatory Cathy Bella Other [facility] Other Start: 10-27-2021 Office outpatient vi sit 15 minutes Cathy Bella [facility] Start: 10-15-2021 End: 10-16-[address] OBRIEN MISC Facility:[facility] Start: 10-08-2021 End: 10-09-2021 ambulatory DOCTOR MISC Facility:[facility] Start: 09-10-2021 End: 09-11-2021 ambulatory DOCTOR MISC Facility:[facility] Start: 08-14-2021 End: 08-14-2021 ambulatory Martha Guevara Other [facility] Other Start: 08-14-2021 Office outpatient vi sit 15 minutes Martha Paola [facility] Start: 12-31-2017 End: 01-01-2018 Patient encounter SCOUT MCKEON Facility:[facility] Start: 12-25-2017 End: 12-26-2017 Patient encounter ROSALINDA ROSENBAUM Facility:[facility] Start: 10-30-2017 End: 10-31-2017 Patient encounter ROSALINDA ROSENBAUM Facility:[facility] Start: 10-23-2017 End: 10-24-2017 Patient encounter ROSALINDA ROSENBAUM Facility:[facility] Start: 09-25-2017 End: 09-26-2017 Patient encounter ROSALINDA ROSENBAUM Facility:[facility] Start: 08-26-2017 End: 08-27-2017 Patient encounter ROSALINDA ROSENBAUM Facility:[facility] Start: 07-23-2017 End: 07-24-2017 Patient encounter ROSALINDA ROSENBAUM Facility:[facility] Start: 06-20-2017 End: 06-21-2017 Patient encounter ROSALINDA ROSENBAUM Facility:[facility] Start: 05-27-2017 End: 05-28-2017 Patient encounter ROSALINDA ROSENBAUM Facility:[facility] Start: 04-29-2017 End: 04-30-2017 Patient encounter ROSALINDA ROSENBAUM Facility:[facility] Start: 03-27-2017 End: 03-28-2017 Patient encounter ROSALINDA ROSENBAUM Facility:[facility] Start: 02-26-2017 End: 02-27-2017 Patient encounter TYESHADARWIN [place] Facility:[facility] Procedures Date Procedure Procedure Detail Performing Clinician Start: 09-22-2024 ALL CBC WITH AUTO DIFF Generic External Data Provider Start: 08-18-2024 ALL CBC WITH AUTO DIFF [...] [facility] CMP (CMP) (FOR REMOTE [facility] USE) Generic External Data Provider Start: 02-13-2024 [...] History of renal transplant Renal transplant recipient ([facility]) Ester Padilla PA Work Phone: Plan of Treatment Date Care Activity Detail Author Start: 07-29-2027 Screening for malign ant neoplasm of colon [facility] Start: 02-14-2026 Screening for malign ant neoplasm of colon FIT-DNA [facility] Start: 06-01-2025 Medicare Annual Well ness (AWV) Medicare Annual Wellness (AWV) [facility] Start: 02-10-2025 Screening for malign ant neoplasm of breast Mammogram [facility] Start: 11-29-2024 Influenza vaccination Influenza Vacc ine (#1) [facility] Start: 06-01-2024 End: 06-01-2024 Patient encounter procedure 06/01/2024 1:00 PM EST Office Visit [facility] [address] [facility] [address] [place] [id number] Ester Padilla PA [address] [facility] [address] [place] [address] Arrived [facility] Comment on above: Arrived Start: 04-02-2024 Medicare Annual Well ness (AWV) Medicare Annual Wellness (AWV) [facility] Start: 11-30-2023 Influenza vaccination Influenza Vacc ine (#1) [facility] Start: 07-24-2023 Screening for malign ant neoplasm of breast Mammogram [facility] Start: 11-12-1975 Pneumococcal Vaccine : 65+ Years (1 of 2 - PCV) Pneumococcal Vaccine: 65+ Years (1 of 2 - PCV) [facility] Start: 1962 Pneumococcal Vaccine : 65+ Years (1 of 2 - PCV) Pneumococcal Vaccine: 65+ Years (1 of 2 - PCV) [facility] Start: 1955 Screening for malign ant neoplasm of colon [facility] Immunizations Immunization Date Immunization Notes Care Provider Heri wangty 02-19-2024 influenza, injectabl e, madin karey canine kidney, preservative free Ester STEIN Work Phone: [facility] 02-19-2024 influenza virus vaccine, unspecified formulation Ester STEIN Work Phone: [facility] 01-10-2023 Influenza, Seasonal, Quadrivalent, Adjuvanted Generic Provider [facility] 01-10-2023 influenza virus vaccine, unspecified formulation Generic Provider [facility] 09-16-2022 zoster vaccine recombinant Generic Provider [facility] 07-22-2022 zoster vaccine recombinant Generic Provider [facility] 02-19-2022 Influenza, injectabl e, Madin Karey Canine Kidney, preservative free, quadrivalent Generic Provider [facility] 02-19-2022 SARS-COV-2 (COVID-19 ) vaccine, mRNA, spike protein, LNP, bivalent, PF Generic Provider [facility] 01-09-2021 influenza, seasonal, injectable Generic Provider [facility] 12-12-2019 influenza, injectabl e, quadrivalent, preservative free Generic [facility] 12-26-2018 influenza, injectabl e, quadrivalent, contains preservative Generic [facility] 01-21-2018 influenza, injectabl e, quadrivalent, contains preservative Generic [facility] 12-29-2017 influenza, injectabl e, quadrivalent, preservative free Generic Provider [facility] 12-20-2016 influenza, injectabl e, quadrivalent, preservative free Generic [facility] 12-02-2016 seasonal influenza, intradermal, preservative free Generic [facility] 01-16-2015 influenza, injectabl e, quadrivalent, preservative free Generic [facility] 03-16-2009 influenza virus vaccine, split virus (incl. purified surface antigen) Martha Guevara Other [facility] Other 03-16-2009 influenza virus vaccine, unspecified formulation [facility] Payers Date Payer Category Payer Medicare ANTH MEDICARE ADVANTAGE ANTH MEDICARE ADVANTAGE [id number] 2021-Present [address] [place] [address] [id number] 2021 Medicare (Managed Care) AMY WRIGHTRE ADVANTAGE Member Subscriber Plan / Payer (Effective 2021-Present) Name: Joi Grimme Relation to Subscriber: Self Name: Adan Grimmkie Payer ID: Not on file Group ID: [id number] Type: Not on file Address: [address] [id number] 1959 Blue Cross Blue Shield [id number] 1959 Self-pay 1959 Unknown [id number] 1956 Unknown [id number] 2.16.840.1.896117.3.579. 2. 1956 Unknown [id number] 2.16.840.1.096057.3.579. 2.647 1956 Unknown [id number] 2.16.840.1.041082.3.579. 2. 1956 Unknown [id number] 2.16.840.1.574688.3.579. 2.647 1956 Unknown [id number] 2.16.840.1.062886.3.579. 2. 1956 Unknown [id number] 2.16.840.1.449022.3.579. 2. 1956 Unknown [id number] 2.16.840.1.746071.3.579. 2.647 1956 Unknown [id number] 2.16.840.1.324728.3.579. 2.647 1956 Unknown [id number] 2.16.840.1.894709.3.579. 2.647 1956 Unknown [id number] 2.16.840.1.950957.3.579. 2.647 1956 Unknown [id number] 2.16.840.1.985087.3.579. 2.647 1956 Unknown [id number] 2.16.840.1.727664.3.579. 2.647 1956 Unknown [id number] 2.16.840.1.839930.3.579. 2.59 1956 Unknown [id number] 2.16.840.1.524975.3.579. 2.593 1956 Unknown [id number] 2.16.840.1.759949.3.579. 2.59 1956 Unknown [id number] 2.16.840.1.843672.3.579. 2.593 1956 Unknown [id number] 2.16.840.1.907900.3.579. 2.593 1956 Unknown [id number] 2.16.840.1.272055.3.579. 2.593 1956 Unknown [id number] 2.16.840.1.391284.3.579. 2.593 1956 Unknown [id number] 2.16.840.1.062598.3.579. 2.593 1956 Unknown [id number] 2.16.840.1.762590.3.579. 2.593 1956 Unknown [id number] 2.16.840.1.497102.3.579. 2.593 1956 Unknown [id number] 2.16.840.1.909646.3.579. 2.593 1956 Unknown [id number] 2.16.840.1.404500.3.579. 2.593 1956 Unknown [id number] 2.16.840.1.747769.3.579. 2.593 1956 Unknown [id number] 2.16.840.1.388628.3.579. 2.593 1956 Unknown [id number] 2.16.840.1.626692.3.579. 2.593 1956 Unknown [id number] 2.16.840.1.664180.3.579. 2.1259 1956 Unknown [id number] 2.16.840.1.037030.3.579. 2.1259 Unknown [id number] 2.16.840.1.545234.3.579. 2.593 Unknown Amy MCGREGOR/DAYSI [id number] Social History Date Type Detail Facility Unknown if ever smoked [facility] Other Start: 09-02-2023 End: 06-01-2024 Sex Assigned At [facility] [employer] Other Start: 01-29-2023 End: 08-30-2023 Tobacco smoking status NHIS Never smoked tobacco (finding) [facility] Start: 1955 Sex Assigned At Female F [facility] Start: 01-29-2023 Tobacco use and exposure Smokeless tobacco non-user [facility] Start: 09-02-2023 End: 06-01-2024 Alcoholic beverage intake Lifetime non-drinker (finding) [facility] Start: 09-02-2023 End: 06-01-2024 History of Social function [facility] Start: 1955 Sex assigned at Not on file [facility] Clinical Notes 11-10-2007 to 10-14-2024 Telephone Encounter - Ester Padilla, SARITA - 10/14/2024 1:08 PM EDTTelephone Encounter - SARITA Mcrae - 10/14/2024 1:08 PM EDTSARITA Mcrae - 06/01/2024 1:00 PM EST Note Date & Type Note Facility 10-14-2024 Telephone encounter Note Refill request for paroxetine. Sent. [facility] 10-14-2024 Miscellaneous Notes Refill request for paroxetine. Sent. 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 nystatin (Mycostatin) [id number] UNIT/ML suspension SWISH AND SWALLOW 5 MLS [...] level 01/29/2023 History of stress test Hypertension ([facility]) Joint contracture of foot, unspecified laterality 01/29/2023 Polycystic kidney 2013 Renal transplant recipient ([facility]) 01/29/2023 Past Surgical History: Procedure Laterality Date [...] kidney disease) The patient is seeing a certified medical biller for this condition, treatment is deferred to that specialist. Correspondence from that specialist and any available testing were reviewed during today's visit. 7. Joint contracture of foot, unspecified laterality This is a chronic medical condition that is stable since last assessment. No changes in treatment are suggested at this time. 8. Immunosuppression (CMS/HCC) The patient is seeing a certified medical biller for this condition, treatment is deferred to that specialist. Correspondence from that specialist and any available testing were reviewed during today's visit. 9. Abnormal complete blood count The patient is seeing a certified medical biller for this condition, treatment is deferred to [...] with preventative screenings. 13. Generalized anxiety disorder ([facility]/HCC) This is a chronic medical condition that [...] recipient (CMS/HCC) The patient is seeing a certified medical biller for this condition, treatment is deferred to that specialist. Correspondence from that specialist and any available testing were reviewed during today's visit. Follow up in about 1 year (around 06/01/2025) for Medicare Wellness Visit. Ester CARRASCO PA-C documented in this encounter [facility] 04-01-2024 Note Transplant Clinic Patient : [...] in the above HPI Chart Reviewed Historical: >>>>>>>>>>>>>>>>>>>>>>>>>>>>>>>>> >>>>>>>>>>>>>>> 09/23/23 Pt here in follow up with [...] Continue meds and MONTHLY Labs with New [facility] standing Order given today. Follow up 6 months or sooner if needed. See Derm See PCP as scheduled: Dr Carroll. Magic Mouthwash script provided. Chart Review today: 03.17.23 Pt presents visit with . Pt states labs done Last week in [facility] and [place] calling for results. Pt seeing Derm in [place] for lesion: forearm and other lesions. Hx: [...] Hgb. Pt AGAIN instructed to use our [facility] Transplant standing order for her monthly labs. Pt reports B/P stable at home Discussed hydration PLan of Care: Continue meds and MONTHLY Labs with [facility] standing Order. Follow up 6 [...] though she is done with the study. <<<<<<<<<<<<<<<<<<<<<<<<<<<<<<<<< << (more content not included)... [facility] 12-18-2023 Note Will review by phone today with Dr. Negro Vivas tac level 3.9 for 2 consecutive months and if any dose changes, will notify this pt and amend this note. Most recent IR tacrolimus dosing on record is 0.5mg BID [facility] 12-09-2023 Note Prior auth for Mycop henolate was submitted via cmm Approved- scanned into media Keycode: [id number] [facility] 11-26-2023 Note Prior auth submitted via [facility] SARITA Case: [id number], Status: Approved, Coverage Starts on: 08/27/2023 12:00:00 AM, Coverage Ends on: 11/25/2024 12:00:00 AM Keycode: [id number] [facility] 03-27-2023 Evaluation note Encounter Date Diagnosis Assessment Notes Feb, Contact with and (suspected) exposure to covid-19 (ICD-10 - Z20.822) Feb, Viral URI (ICD-10 - J06.9) Advised patient that COVID/Influenza A/B/RSV test and rapid Strep test was negative today. Advised patient that will treat as viral URI. Supportive care as directed, increase fluids and rest, Tylenol as directed, rx of [place], cool mist humidifier, throat lozenges. Discussed infection [...] condition. Feb, Sore throat (ICD-10 - J02.9) [facility] 10-15-2022 Evaluation note* Encounter Date Diagnosis [...] understanding and is agreeable with treatment plan [facility] 09-30-2022 Evaluation note* Encounter Date Diagnosis [...] no improvement in 2 to 3 days. [facility] 09-27-2022 Evaluation note* Encounter Date Diagnosis [...] treatment plan. Patient left in stable condition [facility] 07-30-2022 Evaluation note* Encounter Date Diagnosis [...] verbalizes understanding and agrees with treatment plan [facility] 05-17-2022 Evaluation note* Encounter Date Diagnosis [...] days July, Hematuria, unspecified (ICD-10 - R31.9) [facility] 08-12-2008 History general Narrative - Reported* Type Description Date Medical History PKD found in 1982 when she had a son Medical History hypertension Medical History kidney transplant Surgical History resection of superior cervical mass 11/10/07 Surgical History Teeth extraction in preparation for renal transplant Surgical History portacath placement Surgical History kidney transplant 2013 Hospitalization History see above [employer] Other Evaluation noteNortGetMyRx Other Evaluation note* Diagnosis Onset Date Resolution Status Thrush, oral acute Sore throat noneactive [facility] Work Phone: Evaluation note* Diagnosis Medicare annual wellness visit, subsequent- Primary ACP (advance care planning) Other specified counseling Acute non-recurrent pansinusitis Acute bronchitis, unspecified organism Primary hypertension ([facility]/HCC) Unspecified essential hypertension PKD (polycystic kidney disease) Congenital polycystic kidney, unspecified type Joint contracture of foot, unspecified laterality Immunosuppression ([facility]/HCC) Abnormal complete blood count Other abnormal blood chemistry Current moderate episode of major depressive disorder without prior episode (HCC) ([facility]) Elevated alkaline phosphatase level Estrogen deficiency Other ovarian failure Generalized anxiety disorder ([facility]/HCC) Generalized anxiety disorder Hypercholesteremia ([facility]) Pure hypercholesterolemia Hypomagnesemia Disorders of magnesium metabolism Renal transplant recipient ([facility]) documented [facility] encounter [facility] Diagnosis Current moderate episode of major depressive disorder without prior episode (HCC) documented in this encounter [facility] [place]ative - [place] [employer] Other Summary Purpose Family History Relationship Condition [...] and content) DATE CREATED AUTHOR 01/30/2018 [facility] DATE CREATED AUTHOR AUTHOR'S ORGANIZ ATION 08/17/2021 [facility] DATE CREATED AUTHOR AUTHOR'S ORGANIZ ATION [facility]/13/2022 [facility] DATE CREATED AUTHOR AUTHOR'S ORGANIZ ATION 06/03/2024 [facility] EPIC DATE CREATED AUTHOR AUTHOR'S ORGANIZ ATION 10/01/2024 [facility] REASON FOR VISIT (unrecogniz ed section [...] August 30, 2023 End: August 30, 2023 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 Relationship Specialty Start Date End Date Ramon Carroll MD [address] [place] [address] PCP - Amy FERREIRA 04/08/21 Ramon Carroll MD [address] [place] [address] PCP - General Internal Medicine 08/06/22 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 Relationship Specialty Start Date End Date Ramon Carroll MD [address] [place] [address] PCP - Amy FERREIRA 04/08/21 Ramon Carroll MD [address] [place] [address] PCP - General Internal Medicine 08/06/22 [employer]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 Relationship Specialty Start Date End Date Ramon Carroll MD [address] [place] [address] PCP - Amy FERREIRA 04/08/21 Ramon Carroll MD [address] [place] [address] PCP - General Internal Medicine 08/06/22 [employer]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 Relationship Specialty Start Date End Date Ramon Carroll MD [address] [place] [address] PCP - General Internal Medicine 08/06/22 [employer]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 Relationship Specialty Start Date End Date Ramon Carroll MD [address] [place] [address] PCP - Amy FERREIRA 04/08/21 Ramon Carroll MD [address] [facility] [address] [place] [address] PCP - General Internal Medicine 08/06/22 [employer]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 Relationship Specialty Start Date End Date Ramon Carroll MD [address] [facility] [address] [place] [address] PCP - Amy FERREIRA 04/08/21 Ramon Carroll MD [address] [facility] [address] [place] [address] PCP - General Internal Medicine 08/06/22 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 Relationship Specialty Start Date End Date Ramon Carroll MD [address] [facility] [address] [place] [address] PCP - Amy FERREIRA 04/08/21 Ramon Carroll MD [address] [facility] [address] [place] [address] PCP - General Internal Medicine 08/06/22 Goals [...] BE BASED ON THE PRIMARY CLINICAL RECORDS. [facility]. provides no warranty or guarantee of the accuracy or completeness of information in this document.
[2024-10-20 07:11] LABS: Hematocrit 45.8 % (36.0-48.0); Hemoglobin 15.2 g/dL (12.0-16.0); Immature Granulocytes Abs Auto 0.00 10^3/uL (0.00-0.03); Immature Granulocytes Pct Auto 0.0 % (0.0-0.5); Lymphocytes Absolute Auto 1.3 10^3/uL (1.2-3.8); Mean Corpuscular HGB Conc 33.2 g/dL (29.9-35.2); Mean Corpuscular Hemoglobin 31.1 pg (26.7-34.0); Mean Corpuscular Volume 93.9 fL (81.0-99.0); Platelet Count 221 10^3/uL (150-450); Red Blood Count 4.88 10^6/uL (4.20-5.40); White Blood Count 6.2 10^3/uL (4.0-11.0)
[2024-10-20 07:38] LABS: Alanine Aminotransferase 22 U/L (14-59); Albumin Globulin Ratio 1.1; Albumin Level 3.5 g/dL (3.4-5.0); Alkaline Phosphatase 142 U/L (46-116); Anion Gap 11.5; Aspartate Amino Transferase 16 U/L (15-37); Blood Urea Nitrogen 15.0 mg/dL (7.0-18.0); Calcium 9.4 mg/dL (8.5-10.1); Carbon Dioxide 30.6 mmol/L (21.0-32.0); Chloride 106 mmol/L (98-107); Estimated GFR (African America >60 (>=60 mL/min/1.73m^2); Estimated GFR (Non-African Ame >60 (>=60 mL/min/1.73m^2); Globulin 3.3 g/dL; Glucose 101 mg/dL (74-106); Magnesium 2.0 mg/dL (1.8-2.4); Potassium 4.1 mmol/L (3.5-5.1); Sodium 144 mmol/L (136-145); Total Protein 6.8 g/dL (6.4-8.2); Uric Acid 5.7 mg/dL (2.6-6.0)
[2024-10-22 19:07] LABS: Tacrolimus (FK506), Blood 4.3 ng/mL (5.0-20.0)
== END 2024-10-20 06:36 | disposition home or self-care (01) ==
LOC: LAB 06:38
PROVIDERS: PCP Internal Medicine; Visit Provider Nurse Practitioner Family
DX: R73.01 Impaired fasting glucose (principal); Z94.0 Kidney transplant status
CPT/HCPCS: 36415; 80053; 80197; 82248; 83735; 84100; 84550; 85025

== ENCOUNTER 2024-11-17 06:35 | Outpatient (OUT) | payer MEDICARE, SELFPAY ==
--- OUTSIDE RECORDS SUMMARY | 2024-11-17 06:40 | XMS_ITS | CCD ---
Author Organization [facility] Care Team Providers Care Employment Office Clerk Name Role Phone HOULTON, DINKAR Unavailable Unavailable HOULTON, DINKAR Unavailable Unavailable CARROLL, RAMON Unavailable Unavailable [...] Unavailable Unavailable RATNAM, ROSALINDA Unavailable Unavailable RATNAM, ROSAILNDA Unavailable Unavailable CARROLL, RAMON Unavailable Unavailable RATNAM, [...] Attending Unavailable MISC, DR OBRIEN Admitting Unavailable HOULTON, DR CONNORS Consulting Unavailable CARROLL, DR DARBY Primary Care Unavailable MISC, DR OBRIEN Attending Unavailable MISC, DR OBRIEN Admitting Unavailable MISC, DR OBRIEN Attending Unavailable MISC, DR OBRIEN Admitting Unavailable MISC, DR OBRIEN Consulting Unavailable CARROLL, DR DARBY Primary Care Unavailable HOULTON, DR CONNORS Consulting Unavailable HOULTON, DR CONNORS Attending Unavailable CARROLL, DR DARBY Primary Care Unavailable HOULTON, DR CONNORS Admitting Unavailable HOULTON, DR CONNORS Attending Unavailable CARROLL, DR DARBY Primary Care Unavailable HOULTON, DR CONNORS Admitting Unavailable HOULTON, DR CONNORS Consulting Unavailable MISC, DR OBRIEN [...] Unavailable CARROLL, DR DARBY Primary Care Unavailable HOULTON, DR CONNORS Consulting Unavailable HOULTON, DR CONNORS Attending Unavailable CARROLL, DR DARBY Primary Care Unavailable HOULTON, DR CONNORS Admitting Unavailable MISC, DOCTOR Attending Unavailable MISC, DR OBIREN Admitting Unavailable MISC, DR OBRIEN Consulting Unavailable CARROLL, DR DARBY Primary Care Unavailable MISC, DOCTOR Attending Unavailable MISC, DR OBRIEN Admitting Unavailable MISC, DR OBRIEN Consulting Unavailable CARROLL, DR DARBY Primary Care Unavailable HOULTON, DR CONNORS Consulting Unavailable HOULTON, DR CONNORS Attending Unavailable DR DORY BARNES Admitting Unavailable DR RAMON CARROLL Primary Care Unavailable Ramon Carroll MD Unavailable Ramon Carroll MD Primary Care Provider [phone] ESTER PADILLA Attending Unavailable ESTER PADILLA Attending Unavailable ASHLI CARTER Attending Unavailable ASHLI CARTER Attending Unavailable Medications Current Medications Medication Drug Class(es) Dates Sig (Normalized) Sig (Original) [id number] 200 actuat albuterol 0.09 mg/actuat metered dose [...] 06/08/2024 Active atorvastatin 20 mg oral tablet (15 sources) HMG-CoA Reductase Inhibitor Start: 08-30-2023 take 20 mg by mouth once daily at bedtime Atorvastatin Active 20 MG PO Daily at bedtime August 30, 2023 12:00am baclofen 10 mg oral tablet (14 sources) gamma-Aminobutyric Acid-ergic Agonist Start: 03-06-2023 take [...] 1.5 mg/ml oral solution (1 source) Uncompetitive H-jbvogz-V-asparta te Receptor Antagonist, Sigma-1 Agonist Start: 03-27-2023 take 10 mL by mouth every eight hours Goldsmith DM 7.5-7.5 MG/5ML 10 mL Orally every 8 hours for 5 days Feb, Active ergocalciferol 1.25 mg oral capsule (9 sources) Provitamin D2 Compound Start: 06-27-2011 take 1 capsule by mouth every week Vitamin D (Ergocalciferol) 39447 UNIT 1 capsule Orally Once a Week for 90 days May, Active Start: 06-27-2011 everolimus (6 sources) Kinase Inhibitor, mTOR Inhibitor Immunosuppressant Zortress Active ferrous fumarate 325 mg oral tablet (15 sources) Start: Ferrous Fumarate 325 (106 Fe) [...] acid 180 mg delayed release oral tablet (14 sources) Antimetabolite Immunosuppressant Start: 01-27-2023 take 3 tablets by mouth in the morning mycophenolate (Myfortic) 180 MG EC tablet Take 3 tablets by mouth in the morning and 3 tablets before bedtime. 01/27/2023 Active nystatin 731044 unt/ml oral suspension (15 sources) Polyene Antifungal Start: 09-02-2023 take 5 mL by mouth four times daily nystatin (Mycostatin) [id number] UNIT/ML suspension Indications: Thrush, oral SWISH AND SWALLOW 5 MLS ORALLY 4 TIMES A DAY FOR 10 DAYS 60 mL 1 09/02/2023 Active Start: 08-30-2023 take 1 mL by mouth f our times daily Nystatin Active 5 ML PO Four times daily 200 10 August 30, 2023 12:00am swish and swallow Emery 9-Dxv-Sbx-Fish Oil (Fish Oil) 1,000 mg (120 mg-180 mg) capsule (1 source) Start: 08-30-2023 take 1 capsule by mouth once daily Emery 1-Wpp-Gzc-Fish Oil (Fish Oil) 1,000 mg (120 mg-180 mg) capsule Active 1 CAP PO Daily August 30, 2023 12:00am PARoxetine hydrochloride 20 mg oral tablet (16 sources) Serotonin Reuptake Inhibitor Start: 10-14-2024 take [...] day for 30 day(s) Active vitamin B12 (17 sources) Vitamin B12 Start: 08-30-2023 take 1 [...] Start: 12-25-2021 take 1 capsule by mo [facility] every eight hours Tessalon Perles 100 [...] [Other specified counseling] 06-01-2024 Episodic Anxiety disorders (19 sources) Mixed anxiety and depressive disorder; Translations: [Depression with anxiety] Onset: 3 03-06-2023 Chronic Chronic kidney disease (16 sources) Anemia in chronic kidney disease; Translations: [Anemia in Chronic Kidney Disease] Onset: 2 Chronic Chronic obstructive pulmonary disease and bronchiectasis (2 sources) Bronchitis, not specified as acute or chronic Episodic Disorders of lipid metabolism (20 sources) Hyperlipidemia, unspecified; Translations: [Hypercholesterolemia] Onset: 2 08-30-2023 Chronic Essential hypertension (20 sources) Hypertensive disorder; Translations: [HTN] Onset: 2 08-30-2023 Chronic Fluid and electrolyte disorders (3 sources) Hyperosmolality and or hypernatremia; Translations: [Hyperosmolality and/or hypernatremia] Episodic Genitourinary congenital anomalies (20 sources) Multiple congenital cysts of kidney; Translations: [Polycystic kidney, unspecified type] Onset: 4 08-30-2023 Chronic Immunity disorders (10 sources) Immunosuppression; Translations: [Immunodeficiency, unspecified] Onset: 5 06-01-2024 Chronic Immunizations and screening for infectious disease (6 sources) Contact with and (suspected) exposure to other viral communicable diseases; Translations: [Contact with and (suspected) exposure to other viral communicable diseases] Episodic Menopausal disorders (16 sources) Decreased estrogen level; 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-2023 Chronic Mood disorders (17 sources) Moderate major depression, single episode; Translations: [Major depressive disorder, single episode, moderate] Onset: 3 03-06-2023 Chronic Other acquired deformities (16 sources) Contracture of joint of foot; Translations: [...] Chronic Other nutritional; endocrine; and metabolic disorders (10 sources) Hypomagnesemia; Translations: [Hypomagnesemia] Onset: 5 06-01-2024 [...] 04-01-2024 Episodic Diseases of mouth; excluding dental (15 sources) Other lesions of oral mucosa; Translations: [Parotitis] Onset: 01-29-2023 Resolved: 01-30-2023 Episodic Genitourinary symptoms and ill-defined conditions (10 sources) Hematuria, unspecified; Translations: [Dysuria] Onset: 12-31-2017 Resolved: 08-14-2021 Episodic Mood disorders (14 sources) Mood disorders Onset: 01-30-2023 Resolved: 06-01-2024 01-30-2023 Mycoses (16 sources) Candidiasis of mouth; Translations: [Candidal stomatitis] Onset: 09-02-2023 Resolved: 06-01-2024 08-30-2023 Episodic Other aftercare (1 source) Encounter for therapeutic drug level monitoring; Translations: [ENCOUNTER FOR THERAPEUTIC DRUG LEVEL MONITORING] Onset: 03-27-2017 Episodic Other aftercare (2 sources) Other snf (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 therapy; Translations: [OTHER NURSING HOME (CURRENT) DRUG THERAPY] Onset: 02-26-2017 Episodic Other liver diseases (16 sources) Alkaline phosphatase raised; Translations: [Abnormal levels of other serum enzymes] Onset: 01-29-2023 01-29-2023 Episodic Other screening for suspected conditions (not mental disorders or infectious disease) (20 sources) Encounter for screening mammogram for malignant neoplasm of breast; Translations: [Full blood count abnormal] Onset: 07-23-2022 Episodic Other skin disorders (1 source) Rash and other nonspecific skin eruption Onset: 10-27-2021 Resolved: 10-27-2021 Episodic Other upper respiratory infections (14 sources) Sinusitis; Translations: [Chronic sinusitis, unspecified] Onset: 01-29-2023 Resolved: 01-30-2023 01-30-2023 Chronic Unclassified (1 source) COUGH, UNSPECIFIED; Translations: [COUGH, UNSPECIFIED] Onset: 01-03-2022 Unclassified (1 source) Contact with and (suspected) exposure to covid-19 Z20.822 Urinary tract infections (3 sources) Urinary tract infection, site not specified Onset: 08-14-2021 Resolved: 08-14-2021 Episodic Results Test Name Value Interpretation Reference Range Facility ALL MAGNESIUMon 10-20-2024 Magnesium [Mass/Vol] 2 mg/dL 1.8 - 2 .4 mg/dL [facility] ALL PHOSPHOROUSon 10-20-2024 Phosphate [Mass/Vol] 3.5 mg/dL 2.6 - 4 .7 mg/dL [facility] ALL URIC ACIDon 10-20-2024 Urate [Mass/Vol] 5.7 mg/dL 2.6 - 6.0 mg/dL [facility] CMP (CMP) (FOR REMOTE FH C USE)on 10-20-2024 Albumin [Mass/Vol] 3.5 g/dL 3.4 - 5.0 g/dL [facility] ALBUMIN GLOBULIN RATIO 1.1 [facility] ALP [Catalytic activity/Vol] 142 U/L High 46 - 116 U/L [facility] ALT [Catalytic activity/Vol] 22 U/L 14 - 59 U/L [facility] Anion gap [Moles/Vol] 11.5 mmol/L [facility] AST [Catalytic activity/Vol] 16 U/L 15 - 37 U/L [facility] Bilirubin [Mass/Vol] 0.7 mg/dL 0.2 - 1 .0 mg/dL [facility] Calcium [Mass/Vol] 9.4 mg/dL 8.5 - 10. 1 mg/dL [facility] Chloride [Moles/Vol] 106 mmol/L 98 - 10 7 mmol/L [facility] CO2 [Moles/Vol] 30.6 mmol/L 21.0 - 32.0 mmol/L [facility] Creatinine [Mass/Vol] 0.85 mg/dL 0.55 - 1.02 mg/dL [facility] GFR/1.73 sq M.predicted CKD-EPI (S/P/Bld) [Vol rate/Area] >60 >=60 mL/min/1.73m 2 [facility] Globulin (S) [Mass/Vol] 3.3 g/dL [facility] Glucose [Mass/Vol] 101 mg/dL 74 - 106 mg/dL [facility] Interpretation and review of laboratory results Abnormal [facility] Potassium [Moles/Vol] 4.1 mmol/L 3.5 - 5.1 mmol/L [facility] Protein [Mass/Vol] 6.8 g/dL 6.4 - 8.2 g/dL [facility] Sodium [Moles/Vol] 144 mmol/L 136 - 145 mmol/L [facility] TBH EGFR-NON AF IRANIAN >60 >=60 mL/min/1.73m 2 [facility] Urea nitrogen [Mass/Vol] 15 mg/dL 7.0 - 18.0 mg/dL [facility] Urea nitrogen/Creatinine [Mass ratio] 17.6 mg/mg [facility] METRO BILIRUBIN, DIRECTon Bilirubin.indirect [Mass/Vol] 0.1 mg/dL 0.0 - 0.2 mg/dL [facility] No Panel Informationon 10-20 [facility] Follow-Upon 09-29-2024 Follow-Up [id number] Tanika Grimm 1955 F Date Provider Department Center 09/29/2024 [id number] CARTER None Family History Family Status - Relation Status Age at Mother Father Level of Service:03611 [place] OFFICE/OUTPATIENT ESTABLISHED MOD MDM 30 MIN Reason for Visit and Comments: Kidney Follow-up [[id number]] - Patient has no concerns at this time. Normal [facility] ALL CBC WITH AUTO DIFFon BASOPHILS ABSOLUTE AUTO 0 [facility] Basophils/100 WBC (Bld) 0.1 % Low 0.2 - 2.0 % [facility] Eosinophils/100 WBC (Bld) 2.4 % 0.9 - 7.0 % [facility] Erythrocyte distribution width (RBC) [Ratio] 15 % 11.0 - 15.0 % [facility] Hematocrit (Bld) [Volume fraction] 45.6 % 36.0 - 48.0 % [facility] Hemoglobin (Bld) [Mass/Vol] 15 g/dL 12.0 - 16.0 g/dL [facility] IMMATURE GRANULOCYTES ABS AUTO 0.02 [facility] Immature granulocytes/100 WBC (Bld) 0.3 % 0.0 - 0.5 % [facility] Interpretation and review of laboratory results Abnormal [facility] LYMPHOCYTES ABSOLUTE AUTO 1.2 [facility] Lymphocytes/100 WBC (Bld) 15.3 % Low 20.5 - 60.0 % [facility] MCH (RBC) [Entitic mass] 30.9 pg 26.7 - 34.0 pg [facility] MCHC (RBC) [Mass/Vol] 32.9 g/dL 29.9 - 35.2 g/dL [facility] MCV (RBC) [Entitic vol] 94 fL 81.0 - 99.0 fL [facility] MONOCYTES ABSOLUTE AUTO 0.8 [facility] Monocytes/100 WBC (Bld) 10 % 1.7 - 12.0 % [facility] NEUTROPHILS ABSOLUTE AUTO 5.4 [facility] Neutrophils/100 WBC (Bld) 71.9 % 43.0 - 75.0 % [facility] Platelet mean volume (Bld) [Entitic vol] 11.3 fL 9.5 - 13.5 fL [facility] EO # 0.2 [facility] PLT 226 [facility] RBC 4.85 [facility] WBC 7.5 [facility] ALL CBC WITH AUTO DIFFon BASOPHILS ABSOLUTE AUTO 0 [facility] Basophils/100 WBC (Bld) 0.2 % 0.2 - 2.0 % [facility] Eosinophils/100 WBC (Bld) 2.9 % 0.9 - 7.0 % [facility] Erythrocyte distribution width (RBC) [Ratio] 14.8 % 11.0 - 15.0 % [facility] Hematocrit (Bld) [Volume fraction] 46.8 % 36.0 - 48.0 % [facility] Hemoglobin (Bld) [Mass/Vol] 15.2 g/dL 12.0 - 16.0 g/dL [facility] IMMATURE GRANULOCYTES ABS AUTO 0.02 [facility] Immature granulocytes/100 WBC (Bld) 0.3 % 0.0 - 0.5 % [facility] LYMPHOCYTES ABSOLUTE AUTO 1.5 [facility] Lymphocytes/100 WBC (Bld) 21.9 % 20.5 - 60.0 % [facility] MCH (RBC) [Entitic mass] 30.5 pg 26.7 - 34.0 pg [facility] MCHC (RBC) [Mass/Vol] 32.5 g/dL 29.9 - 35.2 g/dL [facility] MCV (RBC) [Entitic vol] 93.8 fL 81.0 - 99.0 fL [facility] MONOCYTES ABSOLUTE AUTO 0.7 [facility] Monocytes/100 WBC (Bld) 10.5 % 1.7 - 12.0 % [facility] NEUTROPHILS ABSOLUTE AUTO 4.3 [facility] Neutrophils/100 WBC (Bld) 64.2 % 43.0 - 75.0 % [facility] Platelet mean volume (Bld) [Entitic vol] 11.7 fL 9.5 - 13.5 fL [facility] EO # 0.2 [facility] PLT 200 [facility] RBC 4.99 [facility] WBC 6.7 [facility] ALL CBC WITH AUTO DIFFon BASOPHILS ABSOLUTE AUTO 0 [facility] Basophils/100 WBC (Bld) 0.1 % Low 0.2 - 2.0 % [facility] Eosinophils/100 WBC (Bld) 3.4 % 0.9 - 7.0 % [facility] Erythrocyte distribution width (RBC) [Ratio] 14.7 % 11.0 - 15.0 % [facility] Hematocrit (Bld) [Volume fraction] 43.1 % 36.0 - 48.0 % [facility] Hemoglobin (Bld) [Mass/Vol] 13.9 g/dL 12.0 - 16.0 g/dL [facility] IMMATURE GRANULOCYTES ABS AUTO 0.01 [facility] Immature granulocytes/100 WBC (Bld) 0.1 % 0.0 - 0.5 % [facility] Interpretation and review of laboratory results Abnormal [facility] LYMPHOCYTES ABSOLUTE AUTO 1.3 [facility] Lymphocytes/100 WBC (Bld) 18.5 % Low 20.5 - 60.0 % [facility] MCH (RBC) [Entitic mass] 30.5 pg 26.7 - 34.0 pg [facility] MCHC (RBC) [Mass/Vol] 32.3 g/dL 29.9 - 35.2 g/dL [facility] MCV (RBC) [Entitic vol] 94.5 fL 81.0 - 99.0 fL [facility] MONOCYTES ABSOLUTE AUTO 0.7 [facility] Monocytes/100 WBC (Bld) 9.9 % 1.7 - 12.0 % [facility] NEUTROPHILS ABSOLUTE AUTO 4.8 [facility] Neutrophils/100 WBC (Bld) 68 % 43.0 - 75.0 % [facility] Platelet mean volume (Bld) [Entitic vol] 11.6 fL 9.5 - 13.5 fL [facility] RBC 4.56 [facility] WBC 7.1 [facility] ALL CBC WITH AUTO DIFFon BASOPHILS ABSOLUTE AUTO 0 [facility] Basophils/100 WBC (Bld) 0.2 % 0.2 - 2.0 % [facility] Eosinophils/100 WBC (Bld) 2.7 % 0.9 - 7.0 % [facility] Erythrocyte distribution width (RBC) [Ratio] 14.6 % 11.0 - 15.0 % [facility] Hematocrit (Bld) [Volume fraction] 46.2 % 36.0 - 48.0 % [facility] Hemoglobin (Bld) [Mass/Vol] 14.8 g/dL 12.0 - 16.0 g/dL [facility] IMMATURE GRANULOCYTES ABS AUTO 0.01 [facility] Immature granulocytes/100 WBC (Bld) 0.2 % 0.0 - 0.5 % [facility] LYMPHOCYTES ABSOLUTE AUTO 1.4 [facility] Lymphocytes/100 WBC (Bld) 22.2 % 20.5 - 60.0 % [facility] MCH (RBC) [Entitic mass] 30.6 pg 26.7 - 34.0 pg [facility] MCHC (RBC) [Mass/Vol] 32 g/dL 29.9 - 35.2 g/dL [facility] MCV (RBC) [Entitic vol] 95.7 fL 81.0 - 99.0 fL [facility] MONOCYTES ABSOLUTE AUTO 0.7 [facility] Monocytes/100 WBC (Bld) 10.3 % 1.7 - 12.0 % [facility] NEUTROPHILS ABSOLUTE AUTO 4.1 [facility] Neutrophils/100 WBC (Bld) 64.4 % 43.0 - 75.0 % [facility] Platelet mean volume (Bld) [Entitic vol] 11.1 fL 9.5 - 13.5 fL [facility] PLT 219 [facility] TB RBC 4.83 [facility] WBC 6.4 [facility] ALL CBC WITH AUTO DIFFon BASOPHILS ABSOLUTE AUTO 0 [facility] Basophils/100 WBC (Bld) 0.3 % 0.2 - 2.0 % [facility] Eosinophils/100 WBC (Bld) 2.8 % 0.9 - 7.0 % [facility] Erythrocyte distribution width (RBC) [Ratio] 14.9 % 11.0 - 15.0 % [facility] Hematocrit (Bld) [Volume fraction] 44.3 % 36.0 - 48.0 % [facility] Hemoglobin (Bld) [Mass/Vol] 14.2 g/dL 12.0 - 16.0 g/dL [facility] IMMATURE GRANULOCYTES ABS AUTO 0.02 [facility] Immature granulocytes/100 WBC (Bld) 0.3 % 0.0 - 0.5 % [facility] Interpretation and review of laboratory results Abnormal [facility] LYMPHOCYTES ABSOLUTE AUTO 1.2 [facility] Lymphocytes/100 WBC (Bld) 17.3 % Low 20.5 - 60.0 % [facility] MCH (RBC) [Entitic mass] 30.5 pg 26.7 - 34.0 pg [facility] MCHC (RBC) [Mass/Vol] 32.1 g/dL 29.9 - 35.2 g/dL [facility] MCV (RBC) [Entitic vol] 95.3 fL 81.0 - 99.0 fL [facility] MONOCYTES ABSOLUTE AUTO 0.7 [facility] Monocytes/100 WBC (Bld) 9.4 % 1.7 - 12.0 % [facility] NEUTROPHILS ABSOLUTE AUTO 5 [facility] Neutrophils/100 WBC (Bld) 69.9 % 43.0 - 75.0 % [facility] Platelet mean volume (Bld) [Entitic vol] 11.5 fL 9.5 - 13.5 fL [facility] PLT 210 [facility] RBC 4.65 [facility] WBC 7.1 [facility] 29on 04-01-2024 29 Addended by: ESTER FREDERICK on: 04/01/2024 02:20 PM Modules accepted: Orders [facility] Follow-Upon 04-01-2024 Follow-Up [id number] Tanika Grimm 1955 F Date Provider Department Center 04/01/2024 [id number] CARTERGely None Family History Family Status - Relation Status Age at Mother Father Level of Service:03711 [place] OFFICE/OUTPATIENT ESTABLISHED MOD MDM 30 MIN Reason for Visit and Comments: Kidney Follow-up [[id number]] - Pt has no concerns at this time. [facility] ALL CBC WITH AUTO DIFFon BASOPHILS ABSOLUTE AUTO 0 [facility] Basophils/100 WBC (Bld) 0.2 % 0.2 - 2.0 % [facility] Eosinophils/100 WBC (Bld) 2.2 % 0.9 - 7.0 % [facility] Erythrocyte distribution width (RBC) [Ratio] 14.8 % 11.0 - 15.0 % [facility] Hematocrit (Bld) [Volume fraction] 45.3 % 36.0 - 48.0 % [facility] Hemoglobin (Bld) [Mass/Vol] 14.4 g/dL 12.0 - 16.0 g/dL [facility] IMMATURE GRANULOCYTES ABS AUTO 0.02 [facility] Immature granulocytes/100 WBC (Bld) 0.2 % 0.0 - 0.5 % [facility] Interpretation and review of laboratory results Abnormal [facility] LYMPHOCYTES ABSOLUTE AUTO 1.5 [facility] Lymphocytes/100 WBC (Bld) 18.6 % Low 20.5 - 60.0 % [facility] MCH (RBC) [Entitic mass] 30.6 pg 26.7 - 34.0 pg [facility] MCHC (RBC) [Mass/Vol] 31.8 g/dL 29.9 - 35.2 g/dL [facility] MCV (RBC) [Entitic vol] 96.4 fL 81.0 - 99.0 fL [facility] MONOCYTES ABSOLUTE AUTO 0.8 [facility] Monocytes/100 WBC (Bld) 10 % 1.7 - 12.0 % [facility] NEUTROPHILS ABSOLUTE AUTO 5.5 [facility] Neutrophils/100 WBC (Bld) 68.8 % 43.0 - 75.0 % [facility] Platelet mean volume (Bld) [Entitic vol] 11.4 fL 9.5 - 13.5 fL [facility] EO # 0.2 [facility] PLT 197 [facility] RBC 4.7 [facility] WBC 8.1 [facility] TACROLIMUS (FK506), BLOODon 02-17-2024 TACROLIMUS (FK506), BLOOD 4.5 ng/mL 2.0 - 20.0 ng/mL [facility] Comment on above: This test was develo ped and its performance characteristics determined by [facility]. It has not been cleared or approved by the Food and Drug Administration. Trough (immediately following transplant) 15.0 Trough (steady state, 2 weeks or more after transplant): 3.0 - 8.0 Performed by LC-MS/MS technology. Performed at: [address] [id number] [employer] Wheel Operator: Marizol Singleton MD, Phone: [phone] [facility] ALL CBC WITH AUTO DIFFon BASOPHILS ABSOLUTE AUTO 0 [facility] Basophils/100 WBC (Bld) 0.3 % 0.2 - 2.0 % [facility] Eosinophils/100 WBC (Bld) 2.1 % 0.9 - 7.0 % [facility] Erythrocyte distribution width (RBC) [Ratio] 14.7 % 11.0 - 15.0 % [facility] Hematocrit (Bld) [Volume fraction] 43.3 % 36.0 - 48.0 % [facility] Hemoglobin (Bld) [Mass/Vol] 14.2 g/dL 12.0 - 16.0 g/dL [facility] IMMATURE GRANULOCYTES ABS AUTO 0.03 [facility] Immature granulocytes/100 WBC (Bld) 0.4 % 0.0 - 0.5 % [facility] LYMPHOCYTES ABSOLUTE AUTO 1.4 [facility] Lymphocytes/100 WBC (Bld) 20.7 % 20.5 - 60.0 % [facility] MCH (RBC) [Entitic mass] 30.9 pg 26.7 - 34.0 pg [facility] MCHC (RBC) [Mass/Vol] 32.8 g/dL 29.9 - 35.2 g/dL [facility] MCV (RBC) [Entitic vol] 94.1 fL 81.0 - 99.0 fL [facility] MONOCYTES ABSOLUTE AUTO 0.7 [facility] Monocytes/100 WBC (Bld) 10.8 % 1.7 - 12.0 % [facility] NEUTROPHILS ABSOLUTE AUTO 4.4 [facility] Neutrophils/100 WBC (Bld) 65.7 % 43.0 - 75.0 % [facility] Platelet mean volume (Bld) [Entitic vol] 11.3 fL 9.5 - 13.5 fL [facility] EO # 0.1 [facility] PLT 193 [facility] TB RBC 4.6 [facility] WBC 6.7 [facility] ALL MAGNESIUMon 02-13-2024 Magnesium [Mass/Vol] 1.7 mg/dL Low 1.8 - 2 .4 mg/dL [facility] ALL PHOSPHOROUSon 02-13-2024 Phosphate [Mass/Vol] 3.4 mg/dL 2.6 - 4 .7 mg/dL [facility] ALL URIC ACIDon 02-13-2024 Urate [Mass/Vol] 4.7 mg/dL 2.6 - 6.0 mg/dL [facility] CMP (CMP) (FOR REMOTE FH C USE)on 02-13-2024 Albumin [Mass/Vol] 3.6 g/dL 3.4 - 5.0 g/dL [facility] ALBUMIN GLOBULIN RATIO 1.2 [facility] ALP [Catalytic activity/Vol] 131 U/L High 46 - 116 U/L [facility] ALT [Catalytic activity/Vol] 16 U/L 14 - 59 U/L [facility] Anion gap [Moles/Vol] 14 mmol/L [facility] AST [Catalytic activity/Vol] 13 U/L Low 15 - 37 U/L [facility] Bilirubin [Mass/Vol] 0.6 mg/dL 0.2 - 1 .0 mg/dL [facility] Calcium [Mass/Vol] 9.1 mg/dL 8.5 - 10. 1 mg/dL [facility] Chloride [Moles/Vol] 108 mmol/L High 98 - 10 7 mmol/L [facility] CO2 [Moles/Vol] 26.1 mmol/L 21.0 - 32.0 mmol/L [facility] Creatinine [Mass/Vol] 0.97 mg/dL 0.55 - 1.02 mg/dL [facility] GFR/1.73 sq M.predicted CKD-EPI (S/P/Bld) [Vol rate/Area] >60 >=60 mL/min/1.73m 2 [facility] Globulin (S) [Mass/Vol] 2.9 g/dL [facility] Glucose [Mass/Vol] 95 mg/dL 74 - 106 mg/dL [facility] Potassium [Moles/Vol] 4.1 mmol/L 3.5 - 5.1 mmol/L [facility] Protein [Mass/Vol] 6.5 g/dL 6.4 - 8.2 g/dL [facility] Sodium [Moles/Vol] 144 mmol/L 136 - 145 mmol/L [facility] TBH EGFR-NON AF IRANIAN 57 Low >=60 mL/min/1.73m 2 [facility] Urea nitrogen [Mass/Vol] 16 mg/dL 7.0 - 18.0 mg/dL [facility] Urea nitrogen/Creatinine [Mass ratio] 16.5 mg/mg [facility] [employer] BILIRUBIN, DIRECTon Bilirubin.indirect [Mass/Vol] 0.1 mg/dL 0.0 - 0.2 mg/dL [facility] No Panel Informationon 02-12 Interpretation and review of laboratory results Abnormal [facility] ALL CBC WITH AUTO DIFFon BASOPHILS ABSOLUTE AUTO 0 [facility] Basophils/100 WBC (Bld) 0.1 % Low 0.2 - 2.0 % [facility] Eosinophils/100 WBC (Bld) 2.5 % 0.9 - 7.0 % [facility] Erythrocyte distribution width (RBC) [Ratio] 14.6 % 11.0 - 15.0 % [facility] Hematocrit (Bld) [Volume fraction] 43.8 % 36.0 - 48.0 % [facility] Hemoglobin (Bld) [Mass/Vol] 14 g/dL 12.0 - 16.0 g/dL [facility] IMMATURE GRANULOCYTES ABS AUTO 0.02 [facility] Immature granulocytes/100 WBC (Bld) 0.3 % 0.0 - 0.5 % [facility] Interpretation and review of laboratory results Abnormal [facility] LYMPHOCYTES ABSOLUTE AUTO 1.4 [facility] Lymphocytes/100 WBC (Bld) 18.7 % Low 20.5 - 60.0 % [facility] MCH (RBC) [Entitic mass] 30.3 pg 26.7 - 34.0 pg [facility] MCHC (RBC) [Mass/Vol] 32 g/dL 29.9 - 35.2 g/dL [facility] MCV (RBC) [Entitic vol] 94.8 fL 81.0 - 99.0 fL [facility] MONOCYTES ABSOLUTE AUTO 0.8 [facility] Monocytes/100 WBC (Bld) 11.1 % 1.7 - 12.0 % [facility] NEUTROPHILS ABSOLUTE AUTO 4.9 [facility] Neutrophils/100 WBC (Bld) 67.3 % 43.0 - 75.0 % [facility] Platelet mean volume (Bld) [Entitic vol] 11.2 fL 9.5 - 13.5 fL [facility] TBH EO # 0.2 [facility] TBH PLT 219 [facility] RBC 4.62 [facility] WBC 7.3 [facility] ALL CBC WITH AUTO DIFFon BASOPHILS ABSOLUTE AUTO 0.0 [facility] Basophils/100 WBC (Bld) 0.3 % 0.2 - 2.0 % [facility] Eosinophils/100 WBC (Bld) 3.6 % 0.9 - 7.0 % [facility] Erythrocyte distribution width (RBC) [Ratio] 14.7 % 11.0 - 15.0 % [facility] Hematocrit (Bld) [Volume fraction] 46.0 % 36.0 - 48.0 % [facility] Hemoglobin (Bld) [Mass/Vol] 14.7 g/dL 12.0 - 16.0 g/dL [facility] IMMATURE GRANULOCYTES ABS AUTO 0.01 [facility] Immature granulocytes/100 WBC (Bld) 0.2 % 0.0 - 0.5 % [facility] LYMPHOCYTES ABSOLUTE AUTO 1.4 [facility] Lymphocytes/100 WBC (Bld) 22.4 % 20.5 - 60.0 % [facility] MCH (RBC) [Entitic mass] 30.1 pg 26.7 - 34.0 pg [facility] MCHC (RBC) [Mass/Vol] 32.0 g/dL 29.9 - 35.2 g/dL [facility] MCV (RBC) [Entitic vol] 94.3 fL 81.0 - 99.0 fL [facility] MONOCYTES ABSOLUTE AUTO 0.6 [facility] Monocytes/100 WBC (Bld) 9.6 % 1.7 - 12.0 % [facility] NEUTROPHILS ABSOLUTE AUTO 3.9 [facility] Neutrophils/100 WBC (Bld) 63.9 % 43.0 - 75.0 % [facility] Platelet mean volume (Bld) [Entitic vol] 11.6 fL 9.5 - 13.5 fL [facility] TBH EO # 0.2 [facility] TBH PLT 202 [facility] TBH RBC 4.88 [facility] TB WBC 6.0 [facility] MLR HEMOGLOBIN A1Con 024 Glucose [Mass/Vol] 108 mg/dL [facility] HbA1c (Bld) [Mass fraction] 5.4 % 4.5 - 6.2 % [facility] Comment on above: ADA RECOMMENDED LIMI T 4.0 - 6.0 ADA THERAPEUTIC TARGET < 7.0 [facility]-2023 Documentation [id number] Tanika Grimm 1955 F [facility] Provider [facility] 12/09/2023 FERNANDA MARVIN PIEDAD None Family History Family Status - Relation Status Age at Mother Father Reason for Visit and Comments: Prior auth : Mycophenolate [Other] Normal [facility] Documentationon 11-26-2023 Documentation [id number] Tanika Grimm 1955 Provider Department Center 11/26/2023 FERNANDA MARVIN PIEDAD None Family History Family Status - Relation Status Age at Mother Father Reason for Visit and Comments: Prior auth Tac 0.5mg [Other] Normal [facility] No Panel InformationOrdered By: Lindsay Soria on 08-30-2023 Quick Strep (POC) [facility] COVID/FLU/RSV RT-PCRon 03-27 SARS-CoV-2 (COVID-19) RNA MURALI+probe Ql (Unsp spec) Negative [facility] Other COVID/FLU/RSV RT-PCR Negative [facility] Other Quick Strepon 03-27-2023 S. pyogenes Org specific cx Ql (Throat) Negative [facility] Other Quick Strep [employer] [facility] [employer] [employer] Other BILIRUBIN CONJUGATED (DIRECT )on 08-12-2022 BILI, CONJUGATED 0.1 mg/dL Normal 0.0-0.2 [facility] Comment on above: Performed By: #### D DAVIDSON, MG, PHOS, CMP, LIPID, URIC #### [facility] [address] [address] [address] Sarmad Patino GLYCOHEMOGLOBIN A1Con 2022 ADA RECOMMENDATION SEE BELOW Normal [facility] Comment on above: Result Comment: ADA RECOMMENDED LIMIT 4.0 - 6.0 ADA THERAPEUTIC TARGET < 7.0 ACTION SUGGESTED > 7.0 Performed By: #### D DAVIDSON, MG, PHOS, CMP, LIPID, URIC #### [facility] [address] [place] [address] Dr. Sarmad Patino Glucose [Mass/Vol] 108 mg/dL Normal [facility] Comment on above: Performed By: #### D DAVIDSON, MG, PHOS, CMP, LIPID, URIC #### [facility] [address] [address] [address] Sarmad Patino HbA1c (Bld) [Mass fraction] 5.4 % Normal 4.5-6.2 [facility] Comment on above: Performed By: #### D DAVIDSON, MG, PHOS, CMP, LIPID, URIC #### [facility] [address] [address] [address] Sarmad Patino MAGNESIUMon 08-12-2022 Magnesium [Mass/Vol] 1.7 mg/dL Critically low 1.8-2.4 [facility] Comment on above: Performed By: #### D DAVIDSON, MG, PHOS, CMP, LIPID, URIC #### [facility] [address] [place] [address] Dr. Sarmad Patino PHOSPHORUSon 08-12-2022 Phosphate [Mass/Vol] 3.9 mg/dL Normal 2.6-4.7 [facility] Comment on above: Performed By: #### U JUVE, LIPID, MG, CMP, DBIL, PHOS #### [facility] [address] [place] [address] Dr. Sarmad Patino PROF 14(COMP METB)on 023 Albumin [Mass/Vol] 3.9 g/dL Normal 3.4-5.0 [facility] Comment on above: Performed By: #### D DAVIDSON, MG, PHOS, CMP, LIPID, URIC #### [facility] [address] [place] [address] Dr. Sarmad Patino Albumin/Globulin [Mass ratio] 1.2 {ratio} Normal [facility] Comment on above: Performed By: #### D DAVIDSON, MG, PHOS, CMP, LIPID, URIC #### [facility] [address] [place] [address] Dr. Sarmad Patino ALP [Catalytic activity/Vol] 126 U/L Critically high 46-116 [facility] Comment on above: Performed By: #### D DAVIDSON, MG, PHOS, CMP, LIPID, URIC #### [facility] [address] [place] [address] Dr. Sarmad Patino ALT [Catalytic activity/Vol] 18 U/L Normal 14-59 [facility] Comment on above: Performed By: #### D DAVIDSON, MG, PHOS, CMP, LIPID, URIC #### [facility] [address] [place] [address] Dr. Sarmad Patino Anion gap [Moles/Vol] 10.4 mmol/L Normal [facility] Comment on above: Performed By: #### D DAVIDSON, MG, PHOS, CMP, LIPID, URIC #### [facility] [address] [place] [address] Dr. Sarmad Patino AST [Catalytic activity/Vol] 14 U/L Critically low 15-37 [facility] Comment on above: Performed By: #### D DAVIDSON, MG, PHOS, CMP, LIPID, URIC #### [facility] [address] [place] [address] Dr. Sarmad Patino Bilirubin [Mass/Vol] 0.7 mg/dL Normal 0.2-1.0 [facility] Comment on above: Performed By: #### D DAVIDSON, MG, PHOS, CMP, LIPID, URIC #### [facility] [address] [address] [address] Sarmad Patino Calcium [Mass/Vol] 9.8 mg/dL Normal 8.5-10.1 [facility] Comment on above: Performed By: #### D DAVIDSON, MG, PHOS, CMP, LIPID, URIC #### [facility] [address] [address] [address] Sarmad Patino Chloride [Moles/Vol] 106 mmol/L Normal 98-107 [facility] Comment on above: Performed By: #### D DAVIDSON, MG, PHOS, CMP, LIPID, URIC #### [facility] [address] [address] [address] Sarmad Patino CO2 [Moles/Vol] 32.1 mmol/L Critically high 21.0-32.0 [facility] Comment on above: Performed By: #### D DAVIDSON, MG, PHOS, CMP, LIPID, URIC #### [facility] [address] [place] [address] Dr. Sarmad Patino Creatinine [Mass/Vol] 0.92 mg/dL Normal 0.55-1.02 [facility] Comment on above: Performed By: #### D DAVIDSON, MG, PHOS, CMP, LIPID, URIC #### [facility] [address] [place] [address] Dr. Sarmad Patino EGFR-AF IRANIAN >60 Normal >=60 [facility] Comment on above: Performed By: #### D DAVIDSON, MG, PHOS, CMP, LIPID, URIC #### [facility] [address] [place] [address] Dr. Sarmad Patino EGFR-NON AF IRANIAN >60 Normal >=60 [facility] Comment on above: Performed By: #### D DAVIDSON, MG, PHOS, CMP, LIPID, URIC #### [facility] [address] [place] [address] Dr. Sarmad Patino Globulin (S) [Mass/Vol] 3.3 g/dL Normal [facility] Comment on above: Performed By: #### D DAVIDSON, MG, PHOS, CMP, LIPID, URIC #### [facility] [address] [address] [address] Sarmad Patino Glucose [Mass/Vol] 102 mg/dL Normal 74-106 [facility] Comment on above: Performed By: #### D DAVIDSON, MG, PHOS, CMP, LIPID, URIC #### [facility] [address] [address] [address] Sarmad Patino Potassium [Moles/Vol] 4.5 mmol/L Normal 3.5-5.1 [facility] Comment on above: Performed By: #### D DAVIDSON, MG, PHOS, CMP, LIPID, URIC #### [facility] [address] [place] [address] Dr. Sarmad Patino Protein [Mass/Vol] 7.2 g/dL Normal 6.4-8.2 [facility] Comment on above: Performed By: #### D DAVIDOSN, MG, PHOS, CMP, LIPID, URIC #### [facility] [address] [place] [address] Dr. Sarmad Patino Sodium [Moles/Vol] 144 mmol/L Normal 136-145 [facility] Comment on above: Performed By: #### D DAVIDSON, MG, PHOS, CMP, LIPID, URIC #### [facility] [address] [place] [address] Dr. Sarmad Patino Urea nitrogen [Mass/Vol] 20.0 mg/dL Critically high 7.0-18.0 [facility] Comment on above: Performed By: #### D DAVIDSON, MG, PHOS, CMP, LIPID, URIC #### [facility] [address] [place] [address] Dr. Sarmad Patino Urea nitrogen/Creatinine [Mass ratio] 21.7 mg/mg Normal [facility] Comment on above: Performed By: #### D DAVIDSON, MG, PHOS, CMP, LIPID, URIC #### [facility] [address] [place] [address] Dr. Sarmad Patino URIC ACID SERUMon 08-12-2022 Urate [Mass/Vol] 5.2 mg/dL Normal 2.6-6.0 [facility] Comment on above: Performed By: #### D DAVIDSON, MG, PHOS, CMP, LIPID, URIC #### [facility] [address] [address] [address] Sarmad Patino MG MAMM SCREEN 3D DAVIDSON CADon 07-23-2022 MG MAMM SCREEN 3D DAVIDSON CAD Patient: TANIKA GRIMM Exam Date: 07/23/2022 : 1955 Gender:F Ordering : DR RAMON CARROLL M.D. Admission #: [id number] Family : Order #: [id number] CLICK HERE TO VIEW EXAM RADIOLOGY REPORT [...] Treatments None Family Cancers None LOCATION: [facility] BREAST COMPOSITION: Extremely dense, which lowers [...] M.D. on 07/23/2022 at 16:59 Normal [facility] FK506 (TACROLIMUS) WHOLE BLO ODon 07-10-2022 Tacrolimus (FK506), Blood 3.8 ng/mL Normal 2.0-20.0 [facility] Comment on above: Result Comment: Trou gh (immediately following transplant) 15.0 . Trough (steady state, 2 weeks or more after transplant): 3.0 - 8.0 . Performed by LC-MS/MS technology. Performed By: #### D DAVIDSON, MG, PHOS, CMP, LIPID, URIC #### [facility] [address] [address] [address] Sarmad Patino BILIRUBIN CONJUGATED (DIRECT )on 07-08-2022 BILI, CONJUGATED 0.1 mg/dL Normal 0.0-0.2 [facility] Comment on above: Performed By: #### U JUVE, LIPID, MG, CMP, DBIL, PHOS #### [facility] [address] [address] [address] Sarmad Patino GLYCOHEMOGLOBIN A1Con 2022 ADA RECOMMENDATION SEE BELOW Normal [facility] Comment on above: Result Comment: ADA RECOMMENDED LIMIT 4.0 - 6.0 ADA THERAPEUTIC TARGET < 7.0 ACTION SUGGESTED > 7.0 Performed By: #### D DAVIDSON, MG, PHOS, CMP, LIPID, URIC #### [facility] [address] [place] [address] Dr. Sarmad Patino Glucose [Mass/Vol] 105 mg/dL Normal [facility] Comment on above: Performed By: #### D DAVIDSON, MG, PHOS, CMP, LIPID, URIC #### [facility] [address] [address] [address] Sarmad Patino HbA1c (Bld) [Mass fraction] 5.3 % Normal 4.5-6.2 [facility] Comment on above: Performed By: #### D DAVIDSON, MG, PHOS, CMP, LIPID, URIC #### [facility] [address] [place] [address] Dr. Sarmad Patino MAGNESIUMon 07-08-2022 Magnesium [Mass/Vol] 1.8 mg/dL Normal 1.8-2.4 [facility] Comment on above: Performed By: #### U JUVE, LIPID, MG, CMP, DBIL, PHOS #### [facility] [address] [address] [address] Sarmad Patino PHOSPHORUSon 07-08-2022 Phosphate [Mass/Vol] 3.8 mg/dL Normal 2.6-4.7 [facility] Comment on above: Performed By: #### U JUVE, LIPID, MG, CMP, DBIL, PHOS #### [facility] [address] [place], [place] [id number] Dr. Sarmad Patino PROF 14(COMP METB)on 023 Albumin [Mass/Vol] 3.7 g/dL Normal 3.4-5.0 [facility] Comment on above: Performed By: #### U JUVE, LIPID, MG, CMP, DBIL, PHOS #### [facility] [address] [place] [address] Dr. Sarmad Patino Albumin/Globulin [Mass ratio] 1.1 {ratio} Normal [facility] Comment on above: Performed By: #### U JUVE, LIPID, MG, CMP, DBIL, PHOS #### [facility] [address] [place] [address] Dr. Sarmad Patino ALP [Catalytic activity/Vol] 124 U/L Critically high 46-116 [facility] Comment on above: Performed By: #### U JUVE, LIPID, MG, CMP, DBIL, PHOS #### [facility] [address] [place] [address] Dr. Sarmad Patino ALT [Catalytic activity/Vol] 20 U/L Normal 14-59 [facility] Comment on above: Performed By: #### U JUVE, LIPID, MG, CMP, DBIL, PHOS #### [facility] [address] [place] [address] Dr. Sarmad Patino Anion gap [Moles/Vol] 11.5 mmol/L Normal [facility] Comment on above: Performed By: #### U JUVE, LIPID, MG, CMP, DBIL, PHOS #### [facility] [address] [place] [address] Dr. Sarmad Patino AST [Catalytic activity/Vol] 12 U/L Critically low 15-37 [facility] Comment on above: Performed By: #### U JUVE, LIPID, MG, CMP, DBIL, PHOS #### [facility] [address] [place] [address] Dr. Sarmad Patino Bilirubin [Mass/Vol] 0.5 mg/dL Normal 0.2-1.0 [facility] Comment on above: Performed By: #### U JUVE, LIPID, MG, CMP, DBIL, PHOS #### [facility] [address] [address] [address] Sarmad Patino Calcium [Mass/Vol] 9.6 mg/dL Normal 8.5-10.1 [facility] Comment on above: Performed By: #### U JUVE, LIPID, MG, CMP, DBIL, PHOS #### [facility] [address] [place] [address] Dr. Sarmad Patino Chloride [Moles/Vol] 106 mmol/L Normal 98-107 [facility] Comment on above: Performed By: #### U JUVE, LIPID, MG, CMP, DBIL, PHOS #### [facility] [address] [place] [address] Dr. Sarmad Patino CO2 [Moles/Vol] 29.7 mmol/L Normal 21.0-32.0 [facility] Comment on above: Performed By: #### U JUVE, LIPID, MG, CMP, DBIL, PHOS #### [facility] [address] [place] [address] Dr. Sarmad Patino Creatinine [Mass/Vol] 0.77 mg/dL Normal 0.55-1.02 [facility] Comment on above: Performed By: #### U JUVE, LIPID, MG, CMP, DBIL, PHOS #### [facility] [address] [place] [address] Dr. Sarmad Patino EGFR-AF IRANIAN >60 Normal >=60 [facility] Comment on above: Performed By: #### U JUVE, LIPID, MG, CMP, DBIL, PHOS #### [facility] [address] [place] [address] Dr. Sarmad Patino EGFR-NON AF IRANIAN >60 Normal >=60 [facility] Comment on above: Performed By: #### U JUVE, LIPID, MG, CMP, DBIL, PHOS #### [facility] [address] [place] [address] Dr. Sarmad Patino Globulin (S) [Mass/Vol] 3.4 g/dL Normal [facility] Comment on above: Performed By: #### U JUVE, LIPID, MG, CMP, DBIL, PHOS #### [facility] [address] [address] [address] Sarmad Patino Glucose [Mass/Vol] 97 mg/dL Normal 74-106 [facility] Comment on above: Performed By: #### U JUVE, LIPID, MG, CMP, DBIL, PHOS #### [facility] [address] [address] [address] Sarmad Patino Potassium [Moles/Vol] 4.2 mmol/L Normal 3.5-5.1 [facility] Comment on above: Performed By: #### U JUVE, LIPID, MG, CMP, DBIL, PHOS #### [facility] [address] [address] [address] Sarmad Patino Protein [Mass/Vol] 7.1 g/dL Normal 6.4-8.2 [facility] Comment on above: Performed By: #### U JUVE, LIPID, MG, CMP, DBIL, PHOS #### [facility] [address] [address] [address] Sarmad Patino Sodium [Moles/Vol] 143 mmol/L Normal 136-145 [facility] Comment on above: Performed By: #### U JUVE, LIPID, MG, CMP, DBIL, PHOS #### [facility] [address] [address] [address] Sarmad Patino Urea nitrogen [Mass/Vol] 26.0 mg/dL Critically high 7.0-18.0 [facility] Comment on above: Performed By: #### U JUVE, LIPID, MG, CMP, DBIL, PHOS #### [facility] [address] [address] [address] Sarmad Patino Urea nitrogen/Creatinine [Mass ratio] 33.8 mg/mg Normal [facility] Comment on above: Performed By: #### U JUVE, LIPID, MG, CMP, DBIL, PHOS #### [facility] [address] [place] [address] Dr. Sarmad Patino URIC ACID SERUMon 07-08-2022 Urate [Mass/Vol] 4.7 mg/dL Normal 2.6-6.0 [facility] Comment on above: Performed By: #### U JUVE, LIPID, MG, CMP, DBIL, PHOS #### [facility] [address] [place] [address] Dr. Sarmad Patino FK506 (TACROLIMUS) WHOLE BLO ODon 06-13-2022 Tacrolimus (FK506), Blood 3.0 ng/mL Normal 2.0-20.0 [facility] Comment on above: Result Comment: Trou gh (immediately following transplant) 15.0 . Trough (steady state, 2 weeks or more after transplant): 3.0 - 8.0 . Performed by LC-MS/MS technology. Performed By: #### D DAVIDSON, MG, PHOS, CMP, LIPID, URIC #### [facility] [address] [place] [address] Dr. Sarmad Patino BK VIRUS PCR QUANTon 023 BKV DNA QUANT PCR PLASMA Negative Normal Negative [facility] Comment on above: Result Comment: No B K DNA detected. . The linear range of the assay is 22 - 100,000,000 IU/mL. Performed By: #### B KVIRUS #### [facility] [address] [place] [address] Dr. Sarmad Patino Log10 BKV DNA Plasma Normal [facility] Comment on above: Performed By: #### B KVIRUS #### [facility] [address] [place] [address] Dr. Sarmad Patino BILIRUBIN CONJUGATED (DIRECT )on 06-10-2022 BILI, CONJUGATED 0.1 mg/dL Normal 0.0-0.2 [facility] Comment on above: Performed By: #### U JUVE, LIPID, MG, CMP, DBIL, PHOS #### [facility] [address] [place] [address] Dr. Sarmad Patino GLYCOHEMOGLOBIN A1Con 2022 ADA RECOMMENDATION SEE BELOW Normal [facility] Comment on above: Result Comment: ADA RECOMMENDED LIMIT 4.0 - 6.0 ADA THERAPEUTIC TARGET < 7.0 ACTION SUGGESTED > 7.0 Performed By: #### D DAVIDSON, MG, PHOS, CMP, LIPID, URIC #### [facility] [address] [place] [address] Dr. Sarmad Patino Glucose [Mass/Vol] 114 mg/dL Normal [facility] Comment on above: Performed By: #### D DAVIDSON, MG, PHOS, CMP, LIPID, URIC #### [facility] [address] [address] [address] Sarmad Patino HbA1c (Bld) [Mass fraction] 5.6 % Normal 4.5-6.2 [facility] Comment on above: Performed By: #### D DAVIDSON, MG, PHOS, CMP, LIPID, URIC #### [facility] [address] [address] [address] Sarmad Patino MAGNESIUMon 06-10-2022 Magnesium [Mass/Vol] 1.6 mg/dL Critically low 1.8-2.4 [facility] Comment on above: Performed By: #### U JUVE, LIPID, MG, CMP, DBIL, PHOS #### [facility] [address] [place] [address] Dr. Sarmad Patino PROF 14(COMP METB)on 023 Albumin [Mass/Vol] 3.7 g/dL Normal 3.4-5.0 [facility] Comment on above: Performed By: #### U JUVE, LIPID, MG, CMP, DBIL, PHOS #### [facility] [address] [address] [address] Sarmad Patino Albumin/Globulin [Mass ratio] 1.1 {ratio} Normal [facility] Comment on above: Performed By: #### U JUVE, LIPID, MG, CMP, DBIL, PHOS #### [facility] [address] [place] [address] Dr. Sarmad Patino ALP [Catalytic activity/Vol] 142 U/L Critically high 46-116 [facility] Comment on above: Performed By: #### U JUVE, LIPID, MG, CMP, DBIL, PHOS #### [facility] [address] [address] [address] Sarmad Patino ALT [Catalytic activity/Vol] 29 U/L Normal 14-59 [facility] Comment on above: Performed By: #### U JUVE, LIPID, MG, CMP, DBIL, PHOS #### [facility] [address] [address] [address] Sarmad Patino Anion gap [Moles/Vol] 11.1 mmol/L Normal [facility] Comment on above: Performed By: #### U JUVE, LIPID, MG, CMP, DBIL, PHOS #### [facility] [address] [address] [address] Sarmad Patino AST [Catalytic activity/Vol] 19 U/L Normal 15-37 [facility] Comment on above: Performed By: #### U JUVE, LIPID, MG, CMP, DBIL, PHOS #### [facility] [address] [address] [address] Sarmad Patino Bilirubin [Mass/Vol] 0.6 mg/dL Normal 0.2-1.0 [facility] Comment on above: Performed By: #### U JUVE, LIPID, MG, CMP, DBIL, PHOS #### [facility] [address] [place] [address] Dr. Sarmad Patino Calcium [Mass/Vol] 9.8 mg/dL Normal 8.5-10.1 [facility] Comment on above: Performed By: #### U JUVE, LIPID, MG, CMP, DBIL, PHOS #### [facility] [address] [place] [address] Dr. Sarmad Patino Chloride [Moles/Vol] 103 mmol/L Normal 98-107 [facility] Comment on above: Performed By: #### U JUVE, LIPID, MG, CMP, DBIL, PHOS #### [facility] [address] [place] [address] Dr. Sarmad Patino CO2 [Moles/Vol] 30.7 mmol/L Normal 21.0-32.0 [facility] Comment on above: Performed By: #### U JUVE, LIPID, MG, CMP, DBIL, PHOS #### [facility] [address] [place] [address] Dr. Sarmad Patino Creatinine [Mass/Vol] 0.79 mg/dL Normal 0.55-1.02 [facility] Comment on above: Performed By: #### U JUVE, LIPID, MG, CMP, DBIL, PHOS #### [facility] [address] [address] [address] Sarmad Paitno EGFR-AF IRANIAN >60 Normal >=60 [facility] Comment on above: Performed By: #### U JUVE, LIPID, MG, CMP, DBIL, PHOS #### [facility] [address] [address] [address] Sarmad Patino EGFR-NON AF IRANIAN >60 Normal >=60 [facility] Comment on above: Performed By: #### U JUVE, LIPID, MG, CMP, DBIL, PHOS #### [facility] [address] [place] [address] Dr. Sarmad Patino Globulin (S) [Mass/Vol] 3.4 g/dL Normal [facility] Comment on above: Performed By: #### U JUVE, LIPID, MG, CMP, DBIL, PHOS #### [facility] [address] [address] [address] Sarmad Patino Glucose [Mass/Vol] 94 mg/dL Normal 74-106 [facility] Comment on above: Performed By: #### U JUVE, LIPID, MG, CMP, DBIL, PHOS #### [facility] [address] [place] [address] Dr. Sarmad Patino Potassium [Moles/Vol] 3.8 mmol/L Normal 3.5-5.1 [facility] Comment on above: Performed By: #### U JUVE, LIPID, MG, CMP, DBIL, PHOS #### [facility] [address] [address] [address] Sarmad Patino Protein [Mass/Vol] 7.1 g/dL Normal 6.4-8.2 [facility] Comment on above: Performed By: #### U JUVE, LIPID, MG, CMP, DBIL, PHOS #### [facility] [address] [address] [address] Sarmad Patino Sodium [Moles/Vol] 141 mmol/L Normal 136-145 [facility] Comment on above: Performed By: #### U JUVE, LIPID, MG, CMP, DBIL, PHOS #### [facility] [address] [address] [address] Sarmad Patino Urea nitrogen [Mass/Vol] 17.0 mg/dL Normal 7.0-18.0 [facility] Comment on above: Performed By: #### U JUVE, LIPID, MG, CMP, DBIL, PHOS #### [facility] [address] [place] [address] Dr. Sarmad Patino Urea nitrogen/Creatinine [Mass ratio] 21.5 mg/mg Normal [facility] Comment on above: Performed By: #### U JUVE, LIPID, MG, CMP, DBIL, PHOS #### [facility] [address] [place] [address] Dr. Sarmad Patino URIC ACID SERUMon 06-10-2022 Urate [Mass/Vol] 5.1 mg/dL Normal 2.6-6.0 [facility] Comment on above: Performed By: #### U JUVE, LIPID, MG, CMP, DBIL, PHOS #### [facility] [address] [place] [address] Dr. Sarmad Patino BK VIRUS PCR QUANTon 023 BKV DNA QUANT PCR PLASMA Negative Normal Negative [facility] Comment on above: Result Comment: No B K DNA detected. . The linear range of the assay is 22 - 100,000,000 IU/mL. Performed By: #### U JUVE, LIPID, MG, CMP, DBIL, PHOS #### [facility] [address] [place] [address] Dr. Sarmad Patino Log10 BKV DNA Plasma Normal [facility] Comment on above: Performed By: #### U JUVE, LIPID, MG, CMP, DBIL, PHOS #### [facility] [address] [place] [address] Dr. Sarmad Patino FK506 (TACROLIMUS) WHOLE BLO ODon 05-13-2022 Tacrolimus (FK506), Blood 4.1 ng/mL Normal 2.0-20.0 [facility] Comment on above: Result Comment: Trou gh (immediately following transplant) 15.0 . Trough (steady state, 2 weeks or more after transplant): 3.0 - 8.0 . Performed by LC-MS/MS technology. Performed By: #### U JUVE, LIPID, MG, CMP, DBIL, PHOS #### [facility] [address] [address] [address] Sarmad Patino BILIRUBIN CONJUGATED (DIRECT )on 05-10-2022 BILI, CONJUGATED 0.1 mg/dL Normal 0.0-0.2 [facility] Comment on above: Performed By: #### D DAVIDSON, MG, PHOS, CMP, LIPID, URIC #### [facility] [address] [address] [address] Sarmad Patino GLYCOHEMOGLOBIN A1Con 2022 ADA RECOMMENDATION SEE BELOW Normal [facility] Comment on above: Result Comment: ADA RECOMMENDED LIMIT 4.0 - 6.0 ADA THERAPEUTIC TARGET < 7.0 ACTION SUGGESTED > 7.0 Performed By: #### D DAVIDSON, MG, PHOS, CMP, LIPID, URIC #### [facility] [address] [address] [address] Sarmad Patino Glucose [Mass/Vol] 108 mg/dL Normal [facility] Comment on above: Performed By: #### D DAVIDSON, MG, PHOS, CMP, LIPID, URIC #### [facility] [address] [place] [address] Dr. Sarmad Patino HbA1c (Bld) [Mass fraction] 5.4 % Normal 4.5-6.2 [facility] Comment on above: Performed By: #### D DAVIDSON, MG, PHOS, CMP, LIPID, URIC #### [facility] [address] [place] [address] Dr. Sarmad Patino MAGNESIUMon 05-10-2022 Magnesium [Mass/Vol] 1.9 mg/dL Normal 1.8-2.4 [facility] Comment on above: Performed By: #### U JUVE, LIPID, MG, CMP, DBIL, PHOS #### [facility] [address] [place] [address] Dr. Sarmad Patino PROF 14(COMP METB)on 023 Albumin [Mass/Vol] 3.9 g/dL Normal 3.4-5.0 [facility] Comment on above: Performed By: #### D DAVIDSON, MG, PHOS, CMP, LIPID, URIC #### [facility] [address] [address] [address] Sarmad Patino Albumin/Globulin [Mass ratio] 1.2 {ratio} Normal [facility] Comment on above: Performed By: #### D DAVIDSON, MG, PHOS, CMP, LIPID, URIC #### [facility] [address] [address] [address] Sarmad Patino ALP [Catalytic activity/Vol] 114 U/L Normal 46-116 [facility] Comment on above: Performed By: #### D DAVIDSON, MG, PHOS, CMP, LIPID, URIC #### [facility] [address] [place] [address] Dr. Sarmad Patino ALT [Catalytic activity/Vol] 18 U/L Normal 14-59 [facility] Comment on above: Performed By: #### D DAVIDSON, MG, PHOS, CMP, LIPID, URIC #### [facility] [address] [place] [address] Dr. Sarmad Patino Anion gap [Moles/Vol] 15.9 mmol/L Normal [facility] Comment on above: Performed By: #### D DAVIDSON, MG, PHOS, CMP, LIPID, URIC #### [facility] [address] [place] [address] Dr. Sarmad aPtino AST [Catalytic activity/Vol] 17 U/L Normal 15-37 [facility] Comment on above: Performed By: #### D DAVIDSON, MG, PHOS, CMP, LIPID, URIC #### [facility] [address] [place] [address] Dr. Sarmad Patino Bilirubin [Mass/Vol] 0.4 mg/dL Normal 0.2-1.0 [facility] Comment on above: Performed By: #### D DAVIDSON, MG, PHOS, CMP, LIPID, URIC #### [facility] [address] [place] [address] Dr. Sarmad Patino Calcium [Mass/Vol] 9.8 mg/dL Normal 8.5-10.1 [facility] Comment on above: Performed By: #### D DAVIDSON, MG, PHOS, CMP, LIPID, URIC #### [facility] [address] [address] [address] Sarmad Patino Chloride [Moles/Vol] 103 mmol/L Normal 98-107 [facility] Comment on above: Performed By: #### D DAVIDSON, MG, PHOS, CMP, LIPID, URIC #### [facility] [address] [address] [address] Sarmad Patino CO2 [Moles/Vol] 29.2 mmol/L Normal 21.0-32.0 [facility] Comment on above: Performed By: #### D DAVIDSON, MG, PHOS, CMP, LIPID, URIC #### [facility] [address] [place] [address] Dr. Sarmad Patino Creatinine [Mass/Vol] 0.74 mg/dL Normal 0.55-1.02 [facility] Comment on above: Performed By: #### D DAVIDSON, MG, PHOS, CMP, LIPID, URIC #### [facility] [address] [address] [address] Sarmad Patino EGFR-AF IRANIAN >60 Normal >=60 [facility] Comment on above: Performed By: #### D DAVIDSON, MG, PHOS, CMP, LIPID, URIC #### [facility] [address] [place] [address] Dr. Sarmad Patino EGFR-NON AF IRANIAN >60 Normal >=60 [facility] Comment on above: Performed By: #### D DAVIDSON, MG, PHOS, CMP, LIPID, URIC #### [facility] [address] [address] [address] Sarmad Patino Globulin (S) [Mass/Vol] 3.2 g/dL Normal [facility] Comment on above: Performed By: #### D DAVIDSON, MG, PHOS, CMP, LIPID, URIC #### [facility] [address] [address] [address] Sarmad Patino Glucose [Mass/Vol] 94 mg/dL Normal 74-106 [facility] Comment on above: Performed By: #### D DAVIDSON, MG, PHOS, CMP, LIPID, URIC #### [facility] [address] [address] [address] Sarmad Patino Potassium [Moles/Vol] 4.1 mmol/L Normal 3.5-5.1 [facility] Comment on above: Performed By: #### D DAVIDSON, MG, PHOS, CMP, LIPID, URIC #### [facility] [address] [place] [address] Dr. Sarmad Patino Protein [Mass/Vol] 7.1 g/dL Normal 6.4-8.2 [facility] Comment on above: Performed By: #### D DAVIDSON, MG, PHOS, CMP, LIPID, URIC #### [facility] [address] [place] [address] Dr. Sarmad Patino Sodium [Moles/Vol] 144 mmol/L Normal 136-145 [facility] Comment on above: Performed By: #### D DAVIDSON, MG, PHOS, CMP, LIPID, URIC #### [facility] [address] [place] [address] Dr. Sarmad Patino Urea nitrogen [Mass/Vol] 18.0 mg/dL Normal 7.0-18.0 [facility] Comment on above: Performed By: #### D DAVIDSON, MG, PHOS, CMP, LIPID, URIC #### [facility] [address] [place] [address] Dr. Sarmad Patino Urea nitrogen/Creatinine [Mass ratio] 24.3 mg/mg Normal [facility] Comment on above: Performed By: #### D DAVIDSON, MG, PHOS, CMP, LIPID, URIC #### [facility] [address] [place] [address] Dr. Sarmad Patino URIC ACID SERUMon 05-10-2022 Urate [Mass/Vol] 5.1 mg/dL Normal 2.6-6.0 [facility] Comment on above: Performed By: #### U JUVE, LIPID, MG, CMP, DBIL, PHOS #### [facility] [address] [place] [address] Dr. Sarmad Patino MYCOPHENOLIC ACIDon 04-17-19 Mycophenolic Acid 1.2 ug/mL Normal 1.0-3.5 [facility] Comment on above: Performed By: #### D DAVIDSON, MG, PHOS, CMP, LIPID, URIC #### [facility] [address] [address] [address] Sarmad Patino Mycophenolic Acid Glucuronide 37 ug/mL Normal 15-125 [facility] Comment on above: Result Comment: [facility] 's Reference Range: 35-100 mcg/mL. Performed By: #### D DAVIDSON, MG, PHOS, CMP, LIPID, URIC #### [facility] [address] [address] [address] Sarmad Patino FK506 (TACROLIMUS) WHOLE BLO ODon 04-10-2022 Tacrolimus (FK506), Blood 4.2 ng/mL Normal 2.0-20.0 [facility] Comment on above: Result Comment: Trou gh (immediately following transplant) 15.0 . Trough (steady state, 2 weeks or more after transplant): 3.0 - 8.0 . Performed by LC-MS/MS technology. Performed By: #### D DAVIDSON, MG, PHOS, CMP, LIPID, URIC #### [facility] [address] [address] [address] Sarmad Patino BILIRUBIN CONJUGATED (DIRECT )on 04-08-2022 BILI, CONJUGATED 0.1 mg/dL Normal 0.0-0.2 [facility] Comment on above: Performed By: #### U JUVE, LIPID, MG, CMP, DBIL, PHOS #### [facility] [address] [address] [address] Sarmad Patino CBC AUTO DIFFon 04-08-2022 BASO # 0.0 103/ul Normal 0.0-0.1 [facility] Comment on above: Performed By: #### D DAVIDSON, MG, PHOS, CMP, LIPID, URIC #### [facility] [address] [place] [address] Dr. Sarmad Patino Basophils/100 WBC (Bld) 0.3 % Normal 0.2-2.0 [facility] Comment on above: Performed By: #### D DAVIDSON, MG, PHOS, CMP, LIPID, URIC #### [facility] [address] [place] [address] Dr. Sarmad Patino EO # 0.1 103/ul Normal 0.0-0.7 [facility] Comment on above: Performed By: #### D DAVIDSON, MG, PHOS, CMP, LIPID, URIC #### [facility] [address] [place] [address] Dr. Sarmad Patino Eosinophils/100 WBC (Bld) 1.4 % Normal 0.9-7.0 [facility] Comment on above: Performed By: #### D DAVIDSON, MG, PHOS, CMP, LIPID, URIC #### [facility] [address] [place] [address] Dr. Sarmad Patino Erythrocyte distribution width (RBC) [Ratio] 15.8 % Critically high 11.0-15.0 [facility] Comment on above: Performed By: #### D DAVIDSON, MG, PHOS, CMP, LIPID, URIC #### [facility] [address] [place] [address] Dr. Sarmad Patino Hematocrit (Bld) [Volume fraction] 43.0 % Normal 36.0-48.0 [facility] Comment on above: Performed By: #### D DAVIDSON, MG, PHOS, CMP, LIPID, URIC #### [facility] [address] [place] [address] Dr. Sarmad Patino Hemoglobin (Bld) [Mass/Vol] 15.0 g/dL Normal 12.0-16.0 [facility] Comment on above: Performed By: #### D DAVIDSON, MG, PHOS, CMP, LIPID, URIC #### [facility] [address] [place] [address] Dr. Sarmad Patino IG # 0.01 10e3/ul Normal 0.00-0.03 [facility] Comment on above: Performed By: #### D DAVIDSON, MG, PHOS, CMP, LIPID, URIC #### [facility] [address] [place] [address] Dr. Sarmad Patino IG % 0.1 % Normal 0.0-0.5 [facility] Comment on above: Performed By: #### D DAVIDSON, MG, PHOS, CMP, LIPID, URIC #### [facility] [address] [address] [address] Sarmad Patino LYMPH # 1.3 103/ul Normal 1.2-3.8 [facility] Comment on above: Performed By: #### D DAVIDSON, MG, PHOS, CMP, LIPID, URIC #### [facility] [address] [place] [address] Dr. Sarmad Patino Lymphocytes/100 WBC (Bld) 18.3 % Critically low 20.5-60.0 [facility] Comment on above: Performed By: #### D DAVIDSON, MG, PHOS, CMP, LIPID, URIC #### [facility] [address] [place] [address] Dr. Sarmad Patino MANUAL DIFF REQ NO Normal [facility] Comment on above: Performed By: #### D DAVIDSON, MG, PHOS, CMP, LIPID, URIC #### [facility] [address] [place] [address] Dr. Sarmad Patino MCH (RBC) [Entitic mass] 29.7 pg Normal 26.7-34.0 [facility] Comment on above: Performed By: #### D DAVIDSON, MG, PHOS, CMP, LIPID, URIC #### [facility] [address] [place] [address] Dr. Sarmad Patino MCHC (RBC) [Mass/Vol] 34.9 g/dL Normal 29.9-35.2 [facility] Comment on above: Performed By: #### D DAVIDSON, MG, PHOS, CMP, LIPID, URIC #### [facility] [address] [place] [address] Dr. Sarmad Patino MCV (RBC) [Entitic vol] 85.1 fL Normal 81.0-99.0 [facility] Comment on above: Performed By: #### D DAVIDSON, MG, PHOS, CMP, LIPID, URIC #### [facility] [address] [place] [address] Dr. Sarmad Patino MONO # 0.7 103/ul Normal 0.3-0.8 [facility] Comment on above: Performed By: #### D DAVIDSON, MG, PHOS, CMP, LIPID, URIC #### [facility] [address] [place] [address] Dr. Sarmad Patino Monocytes/100 WBC (Bld) 9.8 % Normal 1.7-12.0 [facility] Comment on above: Performed By: #### D DAVIDSON, MG, PHOS, CMP, LIPID, URIC #### [facility] [address] [place] [address] Dr. Sarmad Patino NEUT # 5.1 103/ul Normal 1.4-6.5 [facility] Comment on above: Performed By: #### D DAVIDSON, MG, PHOS, CMP, LIPID, URIC #### [facility] [address] [place] [address] Dr. Sarmad Patino Neutrophils/100 WBC (Bld) 70.1 % Normal 43.0-75.0 [facility] Comment on above: Performed By: #### D DAVIDSON, MG, PHOS, CMP, LIPID, URIC #### [facility] [address] [place] [address] Dr. Sarmad Patino Platelet mean volume (Bld) [Entitic vol] 10.4 fL Normal 9.5-13.5 [facility] Comment on above: Performed By: #### D DAVIDSON, MG, PHOS, CMP, LIPID, URIC #### [facility] [address] [place] [address] Dr. Sarmad Patnio PLT 229 103/ul Normal 150-450 [facility] Comment on above: Performed By: #### D DAVIDSON, MG, PHOS, CMP, LIPID, URIC #### [facility] [address] [place] [address] Dr. Sarmad Patino RBC 5.05 106/ul Normal 4.20-5.40 [facility] Comment on above: Performed By: #### D DAVIDSON, MG, PHOS, CMP, LIPID, URIC #### [facility] [address] [place] [address] Dr. Sarmad Patino WBC 7.2 103/ul Normal 4.0-11.0 [facility] Comment on above: Performed By: #### D DAVIDSON, MG, PHOS, CMP, LIPID, URIC #### [facility] [address] [address] [address] Sarmad Patino LIPID PROFILEon 04-08-2022 CHOL-HDL RATIO NORM SEE BELOW Normal [facility] Comment on above: Result Comment: 3.3 - 4.4 LOW RISK 4.4 - 7.1 AVERAGE RISK 7.1 - 11.0 MODERATE RISK >11.0 HIGH RISK Performed By: #### U JUVE, LIPID, MG, CMP, DBIL, PHOS #### [facility] [address] [address] [address] Sarmad Patino Cholesterol [Mass/Vol] 134 mg/dL Normal <=200 [facility] Comment on above: Performed By: #### U JUVE, LIPID, MG, CMP, DBIL, PHOS #### [facility] [address] [address] [address] Sarmad Patino Cholesterol in HDL [Mass/Vol] 55 mg/dL Normal 40-60 [facility] Comment on above: Performed By: #### U JUVE, LIPID, MG, CMP, DBIL, PHOS #### [facility] [address] [address] [address] Sarmad Patino Cholesterol in LDL [Mass/Vol] 56.6 mg/dL Normal [facility] Comment on above: Performed By: #### U JUVE, LIPID, MG, CMP, DBIL, PHOS #### [facility] [address] [address] [address] Sarmad Patino Cholesterol.total/Cho lesterol in HDL [Mass ratio] 2.4 {ratio} Normal [facility] Comment on above: Performed By: #### U JUVE, LIPID, MG, CMP, DBIL, PHOS #### [facility] [address] [address] [address] Sarmad Patino HDL NORMAL > or = 60 mg/dl - LO W CARDIOVASCULAR RISK <40 mg/dl - HIGH CARDIOVASCULAR RISK Normal [facility] Comment on above: Performed By: #### U JUVE, LIPID, MG, CMP, DBIL, PHOS #### [facility] [address] [address] [address] Sarmad Patino LDL CALC NORMAL SEE BELOW Normal [facility] Comment on above: Result Comment: <100 mg/dl OPTIMAL 100 - 129 mg/dl NEAR OR ABOVE OPTIMAL 130 - 159 mg/dl BORDERLINE HIGH 160 - 189 mg/dl HIGH >190 mg/dl VERY HIGH Performed By: #### U JUVE, LIPID, MG, CMP, DBIL, PHOS #### [facility] [address] [address] [address] Sarmad Patino Triglyceride [Mass/Vol] 112 mg/dL Normal <=150 [facility] Comment on above: Performed By: #### U JUVE, LIPID, MG, CMP, DBIL, PHOS #### [facility] [address] [address] [address] Sarmad Patino VLDL CALC 22.4 mg/dL Normal [facility] Comment on above: Performed By: #### U JUVE, LIPID, MG, CMP, DBIL, PHOS #### [facility] [address] [place] [address] Dr. Sarmad Patino MAGNESIUMon 04-08-2022 Magnesium [Mass/Vol] 1.8 mg/dL Normal 1.8-2.4 [facility] Comment on above: Performed By: #### U JUVE, LIPID, MG, CMP, DBIL, PHOS #### [facility] [address] [place] [address] Dr. Sarmad Patino PHOSPHORUSon 04-08-2022 Phosphate [Mass/Vol] 3.9 mg/dL Normal 2.6-4.7 [facility] Comment on above: Performed By: #### U JUVE, LIPID, MG, CMP, DBIL, PHOS #### [facility] [address] [address] [address] Sarmad Patino PROF 14(COMP METB)on 023 Albumin [Mass/Vol] 4.0 g/dL Normal 3.4-5.0 [facility] Comment on above: Performed By: #### U JUVE, LIPID, MG, CMP, DBIL, PHOS #### [facility] [address] [address] [address] Sarmad Patino Albumin/Globulin [Mass ratio] 1.3 {ratio} Normal [facility] Comment on above: Performed By: #### U JUVE, LIPID, MG, CMP, DBIL, PHOS #### [facility] [address] [place] [address] Dr. Sarmad Patino ALP [Catalytic activity/Vol] 108 U/L Normal 46-116 [facility] Comment on above: Performed By: #### U JUVE, LIPID, MG, CMP, DBIL, PHOS #### [facility] [address] [place] [address] Dr. Sarmad Patino ALT [Catalytic activity/Vol] 15 U/L Normal 14-59 [facility] Comment on above: Performed By: #### U JUVE, LIPID, MG, CMP, DBIL, PHOS #### [facility] [address] [place] [address] Dr. Sarmad Patino Anion gap [Moles/Vol] 14.3 mmol/L Normal [facility] Comment on above: Performed By: #### U JUVE, LIPID, MG, CMP, DBIL, PHOS #### [facility] [address] [place] [address] Dr. Sarmad Patino AST [Catalytic activity/Vol] 15 U/L Normal 15-37 [facility] Comment on above: Performed By: #### U JUVE, LIPID, MG, CMP, DBIL, PHOS #### [facility] [address] [place] [address] Dr. Sarmad Patino Bilirubin [Mass/Vol] 0.5 mg/dL Normal 0.2-1.0 [facility] Comment on above: Performed By: #### U JUVE, LIPID, MG, CMP, DBIL, PHOS #### [facility] [address] [place] [address] Dr. Sarmad Patino Calcium [Mass/Vol] 9.7 mg/dL Normal 8.5-10.1 [facility] Comment on above: Performed By: #### U JUVE, LIPID, MG, CMP, DBIL, PHOS #### [facility] [address] [address] [address] Sarmad Patino Chloride [Moles/Vol] 105 mmol/L Normal 98-107 [facility] Comment on above: Performed By: #### U JUVE, LIPID, MG, CMP, DBIL, PHOS #### [facility] [address] [place] [address] Dr. Sarmad Patino CO2 [Moles/Vol] 26.6 mmol/L Normal 21.0-32.0 [facility] Comment on above: Performed By: #### U JUVE, LIPID, MG, CMP, DBIL, PHOS #### [facility] [address] [place] [address] Dr. Sarmad Patino Creatinine [Mass/Vol] 0.80 mg/dL Normal 0.55-1.02 [facility] Comment on above: Performed By: #### U JUVE, LIPID, MG, CMP, DBIL, PHOS #### [facility] [address] [place] [address] Dr. Sarmad Patino EGFR-AF IRANIAN >60 Normal >=60 [facility] Comment on above: Performed By: #### U JUVE, LIPID, MG, CMP, DBIL, PHOS #### [facility] [address] [place] [address] Dr. Sarmad Patino EGFR-NON AF IRANIAN >60 Normal >=60 [facility] Comment on above: Performed By: #### U JUVE, LIPID, MG, CMP, DBIL, PHOS #### [facility] [address] [place] [address] Dr. Sarmad Patino Globulin (S) [Mass/Vol] 3.0 g/dL Normal [facility] Comment on above: Performed By: #### U JUVE, LIPID, MG, CMP, DBIL, PHOS #### [facility] [address] [place] [address] Dr. Sarmad Patino Glucose [Mass/Vol] 99 mg/dL Normal 74-106 [facility] Comment on above: Performed By: #### U JUVE, LIPID, MG, CMP, DBIL, PHOS #### [facility] [address] [place] [address] Dr. Sarmad Patino Potassium [Moles/Vol] 3.9 mmol/L Normal 3.5-5.1 [facility] Comment on above: Performed By: #### U JUVE, LIPID, MG, CMP, DBIL, PHOS #### [facility] [address] [place] [address] Dr. Sarmad Patino Protein [Mass/Vol] 7.0 g/dL Normal 6.4-8.2 [facility] Comment on above: Performed By: #### U JUVE, LIPID, MG, CMP, DBIL, PHOS #### [facility] [address] [place] [address] Dr. Sarmad Patino Sodium [Moles/Vol] 142 mmol/L Normal 136-145 [facility] Comment on above: Performed By: #### U JUVE, LIPID, MG, CMP, DBIL, PHOS #### [facility] [address] [place] [address] Dr. Sarmad Patino Urea nitrogen [Mass/Vol] 14.0 mg/dL Normal 7.0-18.0 [facility] Comment on above: Performed By: #### U JUVE, LIPID, MG, CMP, DBIL, PHOS #### [facility] [address] [place] [address] Dr. Sarmad Patino Urea nitrogen/Creatinine [Mass ratio] 17.5 mg/mg Normal [facility] Comment on above: Performed By: #### U JUVE, LIPID, MG, CMP, DBIL, PHOS #### [facility] [address] [place] [address] Dr. Sarmad Patino URIC ACID SERUMon 04-08-2022 Urate [Mass/Vol] 5.2 mg/dL Normal 2.6-6.0 [facility] Comment on above: Performed By: #### U JUVE, LIPID, MG, CMP, DBIL, PHOS #### [facility] [address] [place] [address] Dr. Sarmad Patino BK VIRUS PCR QUANTon 022 BKV DNA QUANT PCR PLASMA Negative Normal Negative [facility] Comment on above: Result Comment: No B K DNA detected. . The linear range of the assay is 22 - 100,000,000 IU/mL. Performed By: #### D DAVIDSON, MG, PHOS, CMP, LIPID, URIC #### [facility] [address] [place] [address] Dr. Sarmad Wasserman BKV DNA Plasma Normal [facility] Comment on above: Performed By: #### D DAVIDSON, MG, PHOS, CMP, LIPID, URIC #### [facility] [address] [place] [address] Dr. Sarmad Patino FK506 (TACROLIMUS) WHOLE BLO ODon 03-13-2022 Tacrolimus (FK506), Blood 5.0 ng/mL Normal 2.0-20.0 [facility] Comment on above: Result Comment: Trou gh (immediately following transplant) 15.0 . Trough (steady state, 2 weeks or more after transplant): 3.0 - 8.0 . Performed by LC-MS/MS technology. Performed By: #### D DAVIDSON, MG, PHOS, CMP, LIPID, URIC #### [facility] [address] [place] [address] Dr. Sarmad Patino GLYCOHEMOGLOBIN A1Con 2021 ADA RECOMMENDATION SEE BELOW Normal [facility] Comment on above: Result Comment: ADA RECOMMENDED LIMIT 4.0 - 6.0 ADA THERAPEUTIC TARGET < 7.0 ACTION SUGGESTED > 7.0 Performed By: #### D DAVIDSON, MG, PHOS, CMP, LIPID, URIC #### [facility] [address] [place] [address] Dr. Sarmad Patino Glucose [Mass/Vol] 111 mg/dL Normal [facility] Comment on above: Performed By: #### D DAVIDSON, MG, PHOS, CMP, LIPID, URIC #### [facility] [address] [place] [address] Dr. Sarmad Patino HbA1c (Bld) [Mass fraction] 5.5 % Normal 4.5-6.2 [facility] Comment on above: Performed By: #### D DAVIDSON, MG, PHOS, CMP, LIPID, URIC #### [facility] [address] [place] [address] Dr. Sarmad Patino LIVER PROFILEon 03-11-2022 Albumin [Mass/Vol] 3.7 g/dL Normal 3.4-5.0 [facility] Comment on above: Performed By: #### D DAVIDSON, MG, PHOS, CMP, LIPID, URIC #### [facility] [address] [address] [address] Sarmad Patino Albumin/Globulin [Mass ratio] 1.1 {ratio} Normal [facility] Comment on above: Performed By: #### D DAVIDSON, MG, PHOS, CMP, LIPID, URIC #### [facility] [address] [address] [address] Sarmad Patino ALP [Catalytic activity/Vol] 124 U/L Critically high 46-116 [facility] Comment on above: Performed By: #### D DAVIDSON, MG, PHOS, CMP, LIPID, URIC #### [facility] [address] [place] [address] Dr. Sarmad Patino ALT [Catalytic activity/Vol] 17 U/L Normal 14-59 [facility] Comment on above: Performed By: #### D DAVIDSON, MG, PHOS, CMP, LIPID, URIC #### [facility] [address] [address] [address] Sarmad Patino AST [Catalytic activity/Vol] 16 U/L Normal 15-37 [facility] Comment on above: Performed By: #### D DAVIDSON, MG, PHOS, CMP, LIPID, URIC #### [facility] [address] [place] [address] Dr. Sarmad Patino BILI, CONJUGATED 0.2 mg/dL Normal 0.0-0.2 [facility] Comment on above: Performed By: #### D DAVIDSON, MG, PHOS, CMP, LIPID, URIC #### [facility] [address] [address] [address] Sarmad Patino Bilirubin [Mass/Vol] 0.6 mg/dL Normal 0.2-1.0 [facility] Comment on above: Performed By: #### D DAVIDSON, MG, PHOS, CMP, LIPID, URIC #### [facility] [address] [place] [address] Dr. Sarmad Patino Globulin (S) [Mass/Vol] 3.4 g/dL Normal [facility] Comment on above: Performed By: #### D DAVIDSON, MG, PHOS, CMP, LIPID, URIC #### [facility] [address] [place] [address] Dr. Sarmad Patino Protein [Mass/Vol] 7.1 g/dL Normal 6.4-8.2 [facility] Comment on above: Performed By: #### D DAVIDSON, MG, PHOS, CMP, LIPID, URIC #### [facility] [address] [address] [address] Sarmad Patino MAGNESIUMon 03-11-2022 Magnesium [Mass/Vol] 1.6 mg/dL Critically low 1.8-2.4 [facility] Comment on above: Performed By: #### D DAVIDSON, MG, PHOS, CMP, LIPID, URIC #### [facility] [address] [place] [address] Dr. Sarmad Patino PHOSPHORUSon 03-11-2022 Phosphate [Mass/Vol] 3.5 mg/dL Normal 2.6-4.7 [facility] Comment on above: Performed By: #### D DAVIDSON, MG, PHOS, CMP, LIPID, URIC #### [facility] [address] [place] [address] Dr. Sarmad Patino URIC ACID SERUMon 03-11-2022 Urate [Mass/Vol] 5.3 mg/dL Normal 2.6-6.0 [facility] Comment on above: Performed By: #### D DAVIDSON, MG, PHOS, CMP, LIPID, URIC #### [facility] [address] [place] [address] Dr. Sarmad Patino MYCOPHENOLIC ACIDon 02-19-20 Mycophenolic Acid 1.5 ug/mL Normal 1.0-3.5 [facility] Comment on above: Performed By: #### D DAVIDSON, MG, PHOS, CMP, LIPID, URIC #### [facility] [address] [place] [address] Dr. Sarmad Patino Mycophenolic Acid Glucuronide 32 ug/mL Normal 15-125 [facility] Comment on above: Result Comment: [facility] 's Reference Range: 35-100 mcg/mL. Performed By: #### D DAVIDSON, MG, PHOS, CMP, LIPID, URIC #### [facility] [address] [place] [address] Dr. Sarmad Patino BK VIRUS PCR QUANTon 022 BKV DNA QUANT PCR PLASMA Negative Normal Negative [facility] Comment on above: Result Comment: No B K DNA detected. . The linear range of the assay is 22 - 100,000,000 IU/mL. Performed By: #### D DAVIDSON, MG, PHOS, CMP, LIPID, URIC #### [facility] [address] [address] [address] Sarmad Patino Log10 BKV DNA Plasma Normal [facility] Comment on above: Performed By: #### D DAVIDSON, MG, PHOS, CMP, LIPID, URIC #### [facility] [address] [place] [address] Dr. Sarmad Patino FK506 (TACROLIMUS) WHOLE BLO ODon 02-11-2022 Tacrolimus (FK506), Blood 4.4 ng/mL Normal 2.0-20.0 [facility] Comment on above: Result Comment: Trou gh (immediately following transplant) 15.0 . Trough (steady state, 2 weeks or more after transplant): 3.0 - 8.0 . Performed by LC-MS/MS technology. Performed By: #### U JUVE, LIPID, MG, CMP, DBIL, PHOS #### [facility] [address] [place] [address] Dr. Sarmad Patino BILIRUBIN CONJUGATED (DIRECT )on 02-08-2022 BILI, CONJUGATED 0.1 mg/dL Normal 0.0-0.2 [facility] Comment on above: Performed By: #### D DAVIDSON, MG, PHOS, CMP, LIPID, URIC #### [facility] [address] [place] [address] Dr. Sarmad Patino CBC AUTO DIFFon 02-08-2022 BASO # 0.0 103/ul Normal 0.0-0.1 [facility] Comment on above: Performed By: #### D DAVIDSON, MG, PHOS, CMP, LIPID, URIC #### [facility] [address] [address] [address] Sarmad Patino Basophils/100 WBC (Bld) 0.3 % Normal 0.2-2.0 [facility] Comment on above: Performed By: #### D DAVIDSON, MG, PHOS, CMP, LIPID, URIC #### [facility] [address] [place] [address] Dr. Sarmad Patino EO # 0.1 103/ul Normal 0.0-0.7 [facility] Comment on above: Performed By: #### D DAVIDSON, MG, PHOS, CMP, LIPID, URIC #### [facility] [address] [address] [address] Sarmad Patino Eosinophils/100 WBC (Bld) 1.0 % Normal 0.9-7.0 [facility] Comment on above: Performed By: #### D DAVIDSON, MG, PHOS, CMP, LIPID, URIC #### [facility] [address] [place] [address] Dr. Sarmad Patino Erythrocyte distribution width (RBC) [Ratio] 15.9 % Critically high 11.0-15.0 [facility] Comment on above: Performed By: #### D DAVIDSON, MG, PHOS, CMP, LIPID, URIC #### [facility] [address] [place] [address] Dr. Sarmad Patino Hematocrit (Bld) [Volume fraction] 42.2 % Normal 36.0-48.0 [facility] Comment on above: Performed By: #### D DAVIDSON, MG, PHOS, CMP, LIPID, URIC #### [facility] [address] [place] [address] Dr. Sarmad Patino Hemoglobin (Bld) [Mass/Vol] 13.8 g/dL Normal 12.0-16.0 [facility] Comment on above: Performed By: #### D DAVIDSON, MG, PHOS, CMP, LIPID, URIC #### [facility] [address] [place] [address] Dr. Sarmad Patino IG # 0.10 10e3/ul Critically high 0.00-0.03 [facility] Comment on above: Performed By: #### D DAVIDSON, MG, PHOS, CMP, LIPID, URIC #### [facility] [address] [address] [address] Sarmad Patino IG % 1.1 % Critically high 0.0-0.[address] [facility] Comment on above: Performed By: #### D DAVIDSON, MG, PHOS, CMP, LIPID, URIC #### [facility] [address] [address] [address] Sarmad Patino LYMPH # 1.2 103/ul Normal 1.2-3.8 [facility] Comment on above: Performed By: #### D DAVIDSON, MG, PHOS, CMP, LIPID, URIC #### [facility] [address] [place] [address] Dr. Sarmad Patino Lymphocytes/100 WBC (Bld) 12.6 % Critically low 20.5-60.0 [facility] Comment on above: Performed By: #### D DAVIDSON, MG, PHOS, CMP, LIPID, URIC #### [facility] [address] [place] [address] Dr. Sarmad Patino MANUAL DIFF REQ NO Normal [facility] Comment on above: Performed By: #### D DAVIDSON, MG, PHOS, CMP, LIPID, URIC #### [facility] [address] [place] [address] Dr. Sarmad Patino MCH (RBC) [Entitic mass] 28.3 pg Normal 26.7-34.0 [facility] Comment on above: Performed By: #### D DAVIDSON, MG, PHOS, CMP, LIPID, URIC #### [facility] [address] [place] [address] Dr. Sarmad Patino MCHC (RBC) [Mass/Vol] 32.7 g/dL Normal 29.9-35.2 [facility] Comment on above: Performed By: #### D DAVIDSON, MG, PHOS, CMP, LIPID, URIC #### [facility] [address] [place] [address] Dr. Saramd Patino MCV (RBC) [Entitic vol] 86.7 fL Normal 81.0-99.0 [facility] Comment on above: Performed By: #### D DAVIDSON, MG, PHOS, CMP, LIPID, URIC #### [facility] [address] [address] [address] Sarmad Patino MONO # 1.0 103/ul Critically high 0.3-0.8 [facility] Comment on above: Performed By: #### D DAVIDSON, MG, PHOS, CMP, LIPID, URIC #### [facility] [address] [place] [address] Dr. Sarmad Patino Monocytes/100 WBC (Bld) 10.7 % Normal 1.7-12.0 [facility] Comment on above: Performed By: #### D DAVIDSON, MG, PHOS, CMP, LIPID, URIC #### [facility] [address] [place] [address] Dr. Sarmad Patino NEUT # 6.9 103/ul Critically high 1.4-6.5 [facility] Comment on above: Performed By: #### D DAVIDSON, MG, PHOS, CMP, LIPID, URIC #### [facility] [address] [place] [address] Dr. Sarmad Patino Neutrophils/100 WBC (Bld) 74.3 % Normal 43.0-75.0 [facility] Comment on above: Performed By: #### D DAVIDSON, MG, PHOS, CMP, LIPID, URIC #### [facility] [address] [place] [address] Dr. Sarmad Patino Platelet mean volume (Bld) [Entitic vol] 11.1 fL Normal 9.5-13.5 [facility] Comment on above: Performed By: #### D DAVIDSON, MG, PHOS, CMP, LIPID, URIC #### [facility] [address] [place] [address] Dr. Sarmad Patino PLT 307 103/ul Normal 150-450 [facility] Comment on above: Performed By: #### D DAVIDSON, MG, PHOS, CMP, LIPID, URIC #### [facility] [address] [place] [address] Dr. Sarmad Patino RBC 4.87 106/ul Normal 4.20-5.40 [facility] Comment on above: Performed By: #### D DAVIDSON, MG, PHOS, CMP, LIPID, URIC #### [facility] [address] [address] [address] Sarmad Patino WBC 9.3 103/ul Normal 4.0-11.0 [facility] Comment on above: Performed By: #### D DAVIDSON, MG, PHOS, CMP, LIPID, URIC #### [facility] [address] [address] [address] Sarmad Patino GLYCOHEMOGLOBIN A1Con 2021 ADA RECOMMENDATION SEE BELOW Normal [facility] Comment on above: Result Comment: ADA RECOMMENDED LIMIT 4.0 - 6.0 ADA THERAPEUTIC TARGET < 7.0 ACTION SUGGESTED > 7.0 Performed By: #### D DAVIDSON, MG, PHOS, CMP, LIPID, URIC #### [facility] [address] [address] [address] Sarmad Patino Glucose [Mass/Vol] 134 mg/dL Normal [facility] Comment on above: Performed By: #### D DAVIDSON, MG, PHOS, CMP, LIPID, URIC #### [facility] [address] [address] [address] Sarmad Patino HbA1c (Bld) [Mass fraction] 6.3 % Critically high 4.5-6.2 [facility] Comment on above: Performed By: #### D DAVIDSON, MG, PHOS, CMP, LIPID, URIC #### [facility] [address] [address] [address] Sarmad Patino LIPID PROFILEon 02-08-2022 CHOL-HDL RATIO NORM SEE BELOW Normal [facility] Comment on above: Result Comment: 3.3 - 4.4 LOW RISK 4.4 - 7.1 AVERAGE RISK 7.1 - 11.0 MODERATE RISK >11.0 HIGH RISK Performed By: #### D DAVIDSON, MG, PHOS, CMP, LIPID, URIC #### [facility] [address] [address] [address] Sarmad Patino Cholesterol [Mass/Vol] 180 mg/dL Normal <=200 [facility] Comment on above: Performed By: #### D DAVIDSON, MG, PHOS, CMP, LIPID, URIC #### [facility] [address] [address] [address] Sarmad Patino Cholesterol in HDL [Mass/Vol] 58 mg/dL Normal 40-60 [facility] Comment on above: Performed By: #### D DAVIDSON, MG, PHOS, CMP, LIPID, URIC #### [facility] [address] [address] [address] Sarmad Patino Cholesterol in LDL [Mass/Vol] 86.6 mg/dL Normal [facility] Comment on above: Performed By: #### D DAVIDSON, MG, PHOS, CMP, LIPID, URIC #### [facility] [address] [address] [address] Sarmad Patino Cholesterol.total/Cho lesterol in HDL [Mass ratio] 3.1 {ratio} Normal [facility] Comment on above: Performed By: #### D DAVIDSON, MG, PHOS, CMP, LIPID, URIC #### [facility] [address] [address] [address] Sarmad Pation HDL NORMAL > or = 60 mg/dl - LO W CARDIOVASCULAR RISK <40 mg/dl - HIGH CARDIOVASCULAR RISK Normal [facility] Comment on above: Performed By: #### D DAVIDSON, MG, PHOS, CMP, LIPID, URIC #### [facility] [address] [address] [address] Sarmad Patino LDL CALC NORMAL SEE BELOW Normal [facility] Comment on above: Result Comment: <100 mg/dl OPTIMAL 100 - 129 mg/dl NEAR OR ABOVE OPTIMAL 130 - 159 mg/dl BORDERLINE HIGH 160 - 189 mg/dl HIGH >190 mg/dl VERY HIGH Performed By: #### D DAVIDSON, MG, PHOS, CMP, LIPID, URIC #### [facility] [address] [address] [address] Sarmad Patino Triglyceride [Mass/Vol] 177 mg/dL Critically high <=150 [facility] Comment on above: Performed By: #### D DAVIDSON, MG, PHOS, CMP, LIPID, URIC #### [facility] [address] [address] [address] Sarmad Patino VLDL CALC 35.4 mg/dL Normal [facility] Comment on above: Performed By: #### D DAVIDSON, MG, PHOS, CMP, LIPID, URIC #### [facility] [address] [place] [address] Dr. Sarmad Patino MAGNESIUMon 02-08-2022 Magnesium [Mass/Vol] 1.8 mg/dL Normal 1.8-2.4 [facility] Comment on above: Performed By: #### D DAVIDSON, MG, PHOS, CMP, LIPID, URIC #### [facility] [address] [place] [address] Dr. Sarmad Patino PHOSPHORUSon 02-08-2022 Phosphate [Mass/Vol] 3.3 mg/dL Normal 2.6-4.7 [facility] Comment on above: Performed By: #### D DAVIDSON, MG, PHOS, CMP, LIPID, URIC #### [facility] [address] [place] [address] Dr. Sarmad Patino PROF 14(COMP METB)on 022 Albumin [Mass/Vol] 3.8 g/dL Normal 3.4-5.0 [facility] Comment on above: Performed By: #### D DAVIDSON, MG, PHOS, CMP, LIPID, URIC #### [facility] [address] [place] [address] Dr. Sarmad Patino Albumin/Globulin [Mass ratio] 1.3 {ratio} Normal [facility] Comment on above: Performed By: #### D DAVIDSON, MG, PHOS, CMP, LIPID, URIC #### [facility] [address] [place] [address] Dr. Sarmad Patino ALP [Catalytic activity/Vol] 144 U/L Critically high 46-116 [facility] Comment on above: Performed By: #### D DAVIDSON, MG, PHOS, CMP, LIPID, URIC #### [facility] [address] [place] [address] Dr. Sarmad Patino ALT [Catalytic activity/Vol] 24 U/L Normal 14-59 [facility] Comment on above: Performed By: #### D DAVIDSON, MG, PHOS, CMP, LIPID, URIC #### [facility] [address] [place] [address] Dr. Sarmad Patino Anion gap [Moles/Vol] 13.7 mmol/L Normal [facility] Comment on above: Performed By: #### D DAVIDSON, MG, PHOS, CMP, LIPID, URIC #### [facility] [address] [address] [address] Sarmad Patino AST [Catalytic activity/Vol] 19 U/L Normal 15-37 [facility] Comment on above: Performed By: #### D DAVIDSON, MG, PHOS, CMP, LIPID, URIC #### [facility] [address] [place] [address] Dr. Sarmad Patino Bilirubin [Mass/Vol] 0.5 mg/dL Normal 0.2-1.0 [facility] Comment on above: Performed By: #### D DAVIDSON, MG, PHOS, CMP, LIPID, URIC #### [facility] [address] [place] [address] Dr. Sarmad Patino Calcium [Mass/Vol] 9.6 mg/dL Normal 8.5-10.1 [facility] Comment on above: Performed By: #### D DAVIDSON, MG, PHOS, CMP, LIPID, URIC #### [facility] [address] [place] [address] Dr. Sarmad Patino Chloride [Moles/Vol] 103 mmol/L Normal 98-107 [facility] Comment on above: Performed By: #### D DAVIDSON, MG, PHOS, CMP, LIPID, URIC #### [facility] [address] [place] [address] Dr. Sarmad Patino CO2 [Moles/Vol] 26.6 mmol/L Normal 21.0-32.0 [facility] Comment on above: Performed By: #### D DAVIDSON, MG, PHOS, CMP, LIPID, URIC #### [facility] [address] [place] [address] Dr. Sarmad Patino Creatinine [Mass/Vol] 0.75 mg/dL Normal 0.55-1.02 [facility] Comment on above: Performed By: #### D DAVIDSON, MG, PHOS, CMP, LIPID, URIC #### [facility] [address] [address] [address] Sarmad Patino EGFR-AF IRANIAN >60 Normal >=60 [facility] Comment on above: Performed By: #### D DAVIDSON, MG, PHOS, CMP, LIPID, URIC #### [facility] [address] [address] [address] Sarmad Patino EGFR-NON AF IRANIAN >60 Normal >=60 [facility] Comment on above: Performed By: #### D DAVIDSON, MG, PHOS, CMP, LIPID, URIC #### [facility] [address] [address] [address] Sarmad Patino Globulin (S) [Mass/Vol] 3.0 g/dL Normal [facility] Comment on above: Performed By: #### D DAVIDSON, MG, PHOS, CMP, LIPID, URIC #### [facility] [address] [address] [address] Sarmad Patino Glucose [Mass/Vol] 99 mg/dL Normal 74-106 [facility] Comment on above: Performed By: #### D DAVIDSON, MG, PHOS, CMP, LIPID, URIC #### [facility] [address] [address] [address] Sarmad Patino Potassium [Moles/Vol] 4.3 mmol/L Normal 3.5-5.1 [facility] Comment on above: Performed By: #### D DAVIDSON, MG, PHOS, CMP, LIPID, URIC #### [facility] [address] [address] [address] Sarmad Patino Protein [Mass/Vol] 6.8 g/dL Normal 6.4-8.2 [facility] Comment on above: Performed By: #### D DAVIDSON, MG, PHOS, CMP, LIPID, URIC #### [facility] [address] [address] [address] Sarmad Patino Sodium [Moles/Vol] 139 mmol/L Normal 136-145 [facility] Comment on above: Performed By: #### D DAVIDSON, MG, PHOS, CMP, LIPID, URIC #### [facility] [address] [place] [address] Dr. Sarmad Patino Urea nitrogen [Mass/Vol] 16.0 mg/dL Normal 7.0-18.0 [facility] Comment on above: Performed By: #### D DAVIDSON, MG, PHOS, CMP, LIPID, URIC #### [facility] [address] [place] [address] Dr. Sarmad Patino Urea nitrogen/Creatinine [Mass ratio] 21.3 mg/mg Normal [facility] Comment on above: Performed By: #### D DAVIDSON, MG, PHOS, CMP, LIPID, URIC #### [facility] [address] [place] [address] Dr. Sarmad Patino URIC ACID SERUMon 02-08-2022 Urate [Mass/Vol] 5.4 mg/dL Normal 2.6-6.0 [facility] Comment on above: Performed By: #### D DAVIDSON, MG, PHOS, CMP, LIPID, URIC #### [facility] [address] [place] [address] Dr. Sarmad Patino BK VIRUS PCR QUANTon 022 BKV DNA QUANT PCR PLASMA 27 IU/mL Normal Negative [facility] Comment on above: Result Comment: The linear range of the assay is 22 - 100,000,000 IU/mL. Performed By: #### D DAVIDSON, MG, PHOS, CMP, LIPID, URIC #### [facility] [address] [place] [address] Dr. Sarmad Patino Log10 BKV DNA Plasma 1.431 log10 IU/mL Normal [facility] Comment on above: Performed By: #### D DAVIDSON, MG, PHOS, CMP, LIPID, URIC #### [facility] [address] [place] [address] Dr. Sarmad Patino FK506 (TACROLIMUS) WHOLE BLO ODon 01-30-2022 Tacrolimus (FK506), Blood 6.5 ng/mL Normal 2.0-20.0 [facility] Comment on above: Result Comment: Trou gh (immediately following transplant) 15.0 . Trough (steady state, 2 weeks or more after transplant): 3.0 - 8.0 . Performed by LC-MS/MS technology. Performed By: #### D DAVIDSON, MG, PHOS, CMP, LIPID, URIC #### [facility] [address] [place] [address] Dr. Sarmad Patino RAPAMUNE(SIROLIMUS)on 2021 Rapamune(Sirolimus), whole blood 9.9 ng/mL Normal 3.0-20.0 [facility] Comment on above: Result Comment: Perf ormed by LC/MS-MS technology . This test was developed and its performance characteristics determined by [facility]. It has not been cleared or approved by the Food and Drug Administration. Performed By: #### D DAVIDSON, MG, PHOS, CMP, LIPID, URIC #### [facility] [address] [place] [address] Dr. Sarmad Patino BILIRUBIN CONJUGATED (DIRECT )on 01-28-2022 BILI, CONJUGATED 0.1 mg/dL Normal 0.0-0.2 [facility] Comment on above: Performed By: #### D DAVIDSON, MG, PHOS, CMP, LIPID, URIC #### [facility] [address] [place] [address] Dr. Sarmad Patino CBC AUTO DIFFon 01-28-2022 BASO # 0.0 103/ul Normal 0.0-0.1 [facility] Comment on above: Performed By: #### D DAVIDSON, MG, PHOS, CMP, LIPID, URIC #### [facility] [address] [place] [address] Dr. Sarmad Patino Basophils/100 WBC (Bld) 0.3 % Normal 0.2-2.0 [facility] Comment on above: Performed By: #### D DAVIDSON, MG, PHOS, CMP, LIPID, URIC #### [facility] [address] [place] [address] Dr. Sarmad Patino EO # 0.2 103/ul Normal 0.0-0.7 [facility] Comment on above: Performed By: #### D DAVIDSON, MG, PHOS, CMP, LIPID, URIC #### [facility] [address] [place] [address] Dr. Sarmad Ptaino Eosinophils/100 WBC (Bld) 3.1 % Normal 0.9-7.0 [facility] Comment on above: Performed By: #### D DAVIDSON, MG, PHOS, CMP, LIPID, URIC #### [facility] [address] [place] [address] Dr. Sarmad Patino Erythrocyte distribution width (RBC) [Ratio] 15.4 % Critically high 11.0-15.0 [facility] Comment on above: Performed By: #### D DAVIDSON, MG, PHOS, CMP, LIPID, URIC #### [facility] [address] [place] [address] Dr. Sarmad Patino Hematocrit (Bld) [Volume fraction] 42.6 % Normal 36.0-48.0 [facility] Comment on above: Performed By: #### D DAVIDSON, MG, PHOS, CMP, LIPID, URIC #### [facility] [address] [place] [address] Dr. Sarmad Patino Hemoglobin (Bld) [Mass/Vol] 14.0 g/dL Normal 12.0-16.0 [facility] Comment on above: Performed By: #### D DAVIDSON, MG, PHOS, CMP, LIPID, URIC #### [facility] [address] [place] [address] Dr. Sarmad Patino IG # 0.05 10e3/ul Critically high 0.00-0.03 [facility] Comment on above: Performed By: #### D DAVIDSON, MG, PHOS, CMP, LIPID, URIC #### [facility] [address] [place] [address] Dr. Sarmad Patino IG % 0.7 % Critically high 0.0-0.[address] [facility] Comment on above: Performed By: #### D DAVIDSON, MG, PHOS, CMP, LIPID, URIC #### [facility] [address] [place] [address] Dr. Sarmad Patino LYMPH # 1.1 103/ul Critically low 1.2-3.8 [facility] Comment on above: Performed By: #### D DAVIDSON, MG, PHOS, CMP, LIPID, URIC #### [facility] [address] [place] [address] Dr. Sarmad Patino Lymphocytes/100 WBC (Bld) 15.8 % Critically low 20.5-60.0 [facility] Comment on above: Performed By: #### D DAVIDSON, MG, PHOS, CMP, LIPID, URIC #### [facility] [address] [place] [address] Dr. Sarmad Patino MANUAL DIFF REQ NO Normal [facility] [facility] Comment on above: Performed By: #### D DAVIDSON, MG, PHOS, CMP, LIPID, URIC #### [facility] [address] [place] [address] Dr. Sarmad Patino MCH (RBC) [Entitic mass] 28.3 pg Normal 26.7-34.0 [facility] Comment on above: Performed By: #### D DAVIDSON, MG, PHOS, CMP, LIPID, URIC #### [facility] [address] [place] [address] Dr. Sarmad Patino MCHC (RBC) [Mass/Vol] 32.9 g/dL Normal 29.9-35.2 [facility] Comment on above: Performed By: #### D DAVIDSON, MG, PHOS, CMP, LIPID, URIC #### [facility] [address] [place] [address] Dr. Sarmad Patino MCV (RBC) [Entitic vol] 86.2 fL Normal 81.0-99.0 [facility] Comment on above: Performed By: #### D DAVIDSON, MG, PHOS, CMP, LIPID, URIC #### [facility] [address] [place] [address] Dr. Sarmad Patino MONO # 0.8 103/ul Normal 0.3-0.8 [facility] Comment on above: Performed By: #### D DAVIDSON, MG, PHOS, CMP, LIPID, URIC #### [facility] [address] [place] [address] Dr. Sarmad Patino Monocytes/100 WBC (Bld) 11.0 % Normal 1.7-12.0 [facility] Comment on above: Performed By: #### D DAVIDSON, MG, PHOS, CMP, LIPID, URIC #### [facility] [address] [place] [address] Dr. Sarmad Patino NEUT # 4.8 103/ul Normal 1.4-6.5 [facility] Comment on above: Performed By: #### D DAVIDSON, MG, PHOS, CMP, LIPID, URIC #### [facility] [address] [address] [address] Sarmad Patino Neutrophils/100 WBC (Bld) 69.1 % Normal 43.0-75.0 [facility] Comment on above: Performed By: #### D DAVIDSON, MG, PHOS, CMP, LIPID, URIC #### [facility] [address] [address] [address] Sarmad Patino Platelet mean volume (Bld) [Entitic vol] 10.8 fL Normal 9.5-13.5 [facility] Comment on above: Performed By: #### D DAVIDSON, MG, PHOS, CMP, LIPID, URIC #### [facility] [address] [place] [address] Dr. Sarmad Patino PLT 208 103/ul Normal 150-450 [facility] Comment on above: Performed By: #### D DAVIDSON, MG, PHOS, CMP, LIPID, URIC #### [facility] [address] [address] [address] Sarmad Patino RBC 4.94 106/ul Normal 4.20-5.40 [facility] Comment on above: Performed By: #### D DAVIDSON, MG, PHOS, CMP, LIPID, URIC #### [facility] [address] [address] [address] Sarmad Patino WBC 7.0 103/ul Normal 4.0-11.0 [facility] Comment on above: Performed By: #### D DAVIDSON, MG, PHOS, CMP, LIPID, URIC #### [facility] [address] [address] [address] Sarmad Patino GLYCOHEMOGLOBIN A1Con 2021 ADA RECOMMENDATION SEE BELOW Normal [facility] Comment on above: Result Comment: ADA RECOMMENDED LIMIT 4.0 - 6.0 ADA THERAPEUTIC TARGET < 7.0 ACTION SUGGESTED > 7.0 Performed By: #### D DAVIDSON, MG, PHOS, CMP, LIPID, URIC #### [facility] [address] [address] [address] Sarmad Patino Glucose [Mass/Vol] 137 mg/dL Normal [facility] Comment on above: Performed By: #### D DAVIDSON, MG, PHOS, CMP, LIPID, URIC #### [facility] [address] [address] [address] Sarmad Patino HbA1c (Bld) [Mass fraction] 6.4 % Critically high 4.5-6.2 [facility] Comment on above: Performed By: #### D DAVIDSON, MG, PHOS, CMP, LIPID, URIC #### [facility] [address] [address] [address] Sarmad Patino LIPID PROFILEon 01-28-2022 CHOL-HDL RATIO NORM SEE BELOW Normal [facility] Comment on above: Result Comment: 3.3 - 4.4 LOW RISK 4.4 - 7.1 AVERAGE RISK 7.1 - 11.0 MODERATE RISK >11.0 HIGH RISK Performed By: #### D DAVIDSON, MG, PHOS, CMP, LIPID, URIC #### [facility] [address] [address] [address] Sarmad Patino Cholesterol [Mass/Vol] 209 mg/dL Critically high <=200 [facility] Comment on above: Performed By: #### D DAVIDSON, MG, PHOS, CMP, LIPID, URIC #### [facility] [address] [address] [address] Sarmad Patino Cholesterol in HDL [Mass/Vol] 59 mg/dL Normal 40-60 [facility] Comment on above: Performed By: #### D DAVIDSON, MG, PHOS, CMP, LIPID, URIC #### [facility] [address] [address] [address] Sarmad Patino Cholesterol in LDL [Mass/Vol] 100.4 mg/dL Normal [facility] Comment on above: Performed By: #### D DAVIDSON, MG, PHOS, CMP, LIPID, URIC #### [facility] [address] [address] [address] Sarmad Patino Cholesterol.total/Cho lesterol in HDL [Mass ratio] 3.5 {ratio} Normal [facility] Comment on above: Performed By: #### D DAVIDSON, MG, PHOS, CMP, LIPID, URIC #### [facility] [address] [place] [address] Dr. Sarmad Patino HDL NORMAL > or = 60 mg/dl - LO W CARDIOVASCULAR RISK <40 mg/dl - HIGH CARDIOVASCULAR RISK Normal [facility] Comment on above: Performed By: #### D DAVIDSON, MG, PHOS, CMP, LIPID, URIC #### [facility] [address] [place] [address] Dr. Sarmad Patino LDL CALC NORMAL SEE BELOW Normal [facility] Comment on above: Result Comment: <100 mg/dl OPTIMAL 100 - 129 mg/dl NEAR OR ABOVE OPTIMAL 130 - 159 mg/dl BORDERLINE HIGH 160 - 189 mg/dl HIGH >190 mg/dl VERY HIGH Performed By: #### D DAVIDSON, MG, PHOS, CMP, LIPID, URIC #### [facility] [address] [place] [address] Dr. Sarmad Patino Triglyceride [Mass/Vol] 248 mg/dL Critically high <=150 [facility] Comment on above: Performed By: #### D DAVIDSON, MG, PHOS, CMP, LIPID, URIC #### [facility] [address] [place] [address] Dr. Sarmad Patino VLDL CALC 49.6 mg/dL Normal [facility] Comment on above: Performed By: #### D DAVIDSON, MG, PHOS, CMP, LIPID, URIC #### [facility] [address] [place] [address] Dr. Sarmad Patino MAGNESIUMon 01-28-2022 Magnesium [Mass/Vol] 1.6 mg/dL Critically low 1.8-2.4 [facility] Comment on above: Performed By: #### D DAVIDSON, MG, PHOS, CMP, LIPID, URIC #### [facility] [address] [place] [address] Dr. Sarmad Patino PHOSPHORUSon 01-28-2022 Phosphate [Mass/Vol] 2.7 mg/dL Normal 2.6-4.7 [facility] Comment on above: Performed By: #### D DAVIDSON, MG, PHOS, CMP, LIPID, URIC #### [facility] [address] [place] [address] Dr. Sarmad Patino PROF 14(COMP METB)on 022 Albumin [Mass/Vol] 3.3 g/dL Critically low 3.4-5.0 [facility] Comment on above: Performed By: #### D DAVIDSON, MG, PHOS, CMP, LIPID, URIC #### [facility] [address] [place] [address] Dr. Sarmad Patino Albumin/Globulin [Mass ratio] 0.9 {ratio} Normal [facility] Comment on above: Performed By: #### D DAVIDSON, MG, PHOS, CMP, LIPID, URIC #### [facility] [address] [place] [address] Dr. Sarmad Patino ALP [Catalytic activity/Vol] 124 U/L Critically high 46-116 [facility] Comment on above: Performed By: #### D DAVIDSON, MG, PHOS, CMP, LIPID, URIC #### [facility] [address] [place] [address] Dr. Sarmad Patino ALT [Catalytic activity/Vol] 28 U/L Normal 14-59 [facility] Comment on above: Performed By: #### D DAVIDSON, MG, PHOS, CMP, LIPID, URIC #### [facility] [address] [place] [address] Dr. Sarmad Patino Anion gap [Moles/Vol] 12.0 mmol/L Normal [facility] Comment on above: Performed By: #### D DAVIDSON, MG, PHOS, CMP, LIPID, URIC #### [facility] [address] [place] [address] Dr. Sarmad Patino AST [Catalytic activity/Vol] 20 U/L Normal 15-37 [facility] Comment on above: Performed By: #### D DAVIDSON, MG, PHOS, CMP, LIPID, URIC #### [facility] [address] [place] [address] Dr. Sarmad Patino Bilirubin [Mass/Vol] 0.5 mg/dL Normal 0.2-1.0 [facility] Comment on above: Performed By: #### D DAVIDSON, MG, PHOS, CMP, LIPID, URIC #### [facility] [address] [address] [address] Sarmad Patino Calcium [Mass/Vol] 9.1 mg/dL Normal 8.5-10.1 [facility] Comment on above: Performed By: #### D DAVIDSON, MG, PHOS, CMP, LIPID, URIC #### [facility] [address] [address] [address] Sarmad Patino Chloride [Moles/Vol] 104 mmol/L Normal 98-107 [facility] Comment on above: Performed By: #### D DAVIDSON, MG, PHOS, CMP, LIPID, URIC #### [facility] [address] [place] [address] Dr. Sarmad Patino CO2 [Moles/Vol] 25.7 mmol/L Normal 21.0-32.0 [facility] Comment on above: Performed By: #### D DAVIDSON, MG, PHOS, CMP, LIPID, URIC #### [facility] [address] [place] [address] Dr. Sarmad Patino Creatinine [Mass/Vol] 0.77 mg/dL Normal 0.55-1.02 [facility] Comment on above: Performed By: #### D DAVIDSON, MG, PHOS, CMP, LIPID, URIC #### [facility] [address] [place] [address] Dr. Sarmad Patino EGFR-AF IRANIAN >60 Normal >=60 [facility] Comment on above: Performed By: #### D DAVIDSON, MG, PHOS, CMP, LIPID, URIC #### [facility] [address] [place] [address] Dr. Sarmad Patino EGFR-NON AF IRANIAN >60 Normal >=60 [facility] Comment on above: Performed By: #### D DAVIDSON, MG, PHOS, CMP, LIPID, URIC #### [facility] [address] [address] [address] Sarmad Patino Globulin (S) [Mass/Vol] 3.7 g/dL Normal [facility] Comment on above: Performed By: #### D DAVIDSON, MG, PHOS, CMP, LIPID, URIC #### [facility] [address] [address] [address] Sarmad Patino Glucose [Mass/Vol] 108 mg/dL Critically high 74-106 [facility] Comment on above: Performed By: #### D DAVIDSON, MG, PHOS, CMP, LIPID, URIC #### [facility] [address] [address] [address] Sarmad Patino Potassium [Moles/Vol] 3.7 mmol/L Normal 3.5-5.1 [facility] Comment on above: Performed By: #### D DAVIDSON, MG, PHOS, CMP, LIPID, URIC #### [facility] [address] [place] [address] Dr. Sarmad Patino Protein [Mass/Vol] 7.0 g/dL Normal 6.4-8.2 [facility] Comment on above: Performed By: #### D DAVIDSON, MG, PHOS, CMP, LIPID, URIC #### [facility] [address] [place] [address] Dr. Sarmad Patino Sodium [Moles/Vol] 138 mmol/L Normal 136-145 [facility] Comment on above: Performed By: #### D DAVIDSON, MG, PHOS, CMP, LIPID, URIC #### [facility] [address] [place] [address] Dr. Sarmad Patino Urea nitrogen [Mass/Vol] 15.0 mg/dL Normal 7.0-18.0 [facility] Comment on above: Performed By: #### D DAVIDSON, MG, PHOS, CMP, LIPID, URIC #### [facility] [address] [place] [address] Dr. Sarmad Patino Urea nitrogen/Creatinine [Mass ratio] 19.5 mg/mg Normal [facility] Comment on above: Performed By: #### D DAVIDSON, MG, PHOS, CMP, LIPID, URIC #### [facility] [address] [place] [address] Dr. Sarmad Patino URIC ACID SERUMon 01-28-2022 Urate [Mass/Vol] 4.3 mg/dL Normal 2.6-6.0 [facility] Comment on above: Performed By: #### D DAVIDSON, MG, PHOS, CMP, LIPID, URIC #### [facility] [address] [id number] Sarmad Patino Quick Strepon 01-12-2022 S. pyogenes Org specific cx Ql (Throat) Negative [facility] Other Quick Strep [employer] [facility] [employer] [place] [employer] Other XR CHEST 1 Von 01-07-2022 XR [...] BRITTON BERNARD Date: 2022-01-07 15:00 Normal [facility] CBC W MANUAL DIFFon 01-04-20 22 ATYPICAL LYMPH # 1.40 103/ul Normal [facility] Comment on above: Performed By: #### D DAVIDSON, MG, PHOS, CMP, LIPID, URIC #### [facility] [address] [address] [address] Sarmad Patino ATYPICAL LYMPH % 10 % Normal [facility] Comment on above: Performed By: #### D DAVIDSON, MG, PHOS, CMP, LIPID, URIC #### [facility] [address] [place], [place] [address] Dr. Sarmad Patino BAND # 0.6 103/ul Critically high 0.0-0.3 [facility] Comment on above: Performed By: #### D DAVIDSON, MG, PHOS, CMP, LIPID, URIC #### [facility] [address] [id number] Sarmad Patino BAND % 4 % Normal 0-5 [facility] Comment on above: Performed By: #### D DAVIDSON, MG, PHOS, CMP, LIPID, URIC #### [facility] [address] [address] [address] Sarmad Patino BASOM # 0.00 103/ul Normal 0.00-0.10 [facility] Comment on above: Performed By: #### D DAVIDSON, MG, PHOS, CMP, LIPID, URIC #### [facility] [address] [address] [address] Sarmad Patino BASOM % 0.0 % Critically low 0.2-2.0 [facility] Comment on above: Performed By: #### D DAVIDSON, MG, PHOS, CMP, LIPID, URIC #### [facility] [address] [place] [address] Dr. Sarmad Patino BLAST # Normal [facility] Comment on above: Performed By: #### D DAVIDSON, MG, PHOS, CMP, LIPID, URIC #### [facility] [address] [place] [address] Dr. Sarmad Patino BLAST % Normal [facility] Comment on above: Performed By: #### D DAVIDSON, MG, PHOS, CMP, LIPID, URIC #### [facility] [address] [place] [address] Dr. Sarmad Patino CORRECTED WBC Normal 4.0-11.0 [facility] Comment on above: Performed By: #### D DAVIDSON, MG, PHOS, CMP, LIPID, URIC #### [facility] [address] [address] [address] Sarmad Patino EOS # 0.14 103/ul Normal 0.00-0.70 [facility] Comment on above: Performed By: #### D DAVIDSON, MG, PHOS, CMP, LIPID, URIC #### [facility] [address] [place] [address] Dr. Sarmad Patino EOS% 1.0 % Normal 0.9-7.0 [facility] Comment on above: Performed By: #### D DAVIDSON, MG, PHOS, CMP, LIPID, URIC #### [facility] [address] [place] [address] Dr. Sarmad Patino HCT 42.8 % Normal 36.0-48.0 [facility] Comment on above: Performed By: #### D DAVIDSON, MG, PHOS, CMP, LIPID, URIC #### [facility] [address] [address] [address] Sarmad Patino HGB 14.2 g/dl Normal 12.0-16.0 [facility] Comment on above: Performed By: #### D DAVIDSON, MG, PHOS, CMP, LIPID, URIC #### [facility] [address] [place] [address] Dr. Sarmad Patino LYMPHM # 0.00 103/ul Critically low 1.20-3.[address] [facility] Comment on above: Performed By: #### D DAVIDSON, MG, PHOS, CMP, LIPID, URIC #### [facility] [address] [place] [address] Dr. Sarmad Patino LYMPHM% 0.0 % Critically low 20.5-60.0 [facility] Comment on above: Performed By: #### D DAVIDSON, MG, PHOS, CMP, LIPID, URIC #### [facility] [address] [place] [address] Dr. Sarmad Patino MCH 28.8 pg Normal 26.7-34.0 [facility] Comment on above: Performed By: #### D DAVIDSON, MG, PHOS, CMP, LIPID, URIC #### [facility] [address] [place] [address] Dr. Sarmad Patino MCHC 33.2 g/dl Normal 29.9-35.2 [facility] Comment on above: Performed By: #### D DAVIDSON, MG, PHOS, CMP, LIPID, URIC #### [facility] [address] [place] [address] Dr. Sarmad Patino MCV 86.8 fL Normal 81.0-99.0 [facility] Comment on above: Performed By: #### D DAVIDSON, MG, PHOS, CMP, LIPID, URIC #### [facility] [address] [place] [address] Dr. Sarmad Patino METAMYELOCYTE # Normal [facility] Comment on above: Performed By: #### D DAVIDSON, MG, PHOS, CMP, LIPID, URIC #### [facility] [address] [address] [address] Sarmad Patino METAMYELOCYTE % Normal [facility] Comment on above: Performed By: #### D DAVIDSON, MG, PHOS, CMP, LIPID, URIC #### [facility] [address] [address] [address] Sarmad Patino MONOM# 0.84 103/ul Critically high 0.30-0.80 [facility] Comment on above: Performed By: #### D DAVIDSON, MG, PHOS, CMP, LIPID, URIC #### [facility] [address] [place] [address] Dr. Sarmad Patino MONOM% 6.0 % Normal 1.7-12.0 [facility] Comment on above: Performed By: #### D DAVIDSON, MG, PHOS, CMP, LIPID, URIC #### [facility] [address] [address] [address] Sarmad Patino MPV 11.5 fL Normal 9.5-13.5 [facility] Comment on above: Performed By: #### D DAVIDSON, MG, PHOS, CMP, LIPID, URIC #### [facility] [address] [address] [address] Sarmad Patino MYELOCYTE # 0.3 103/ul Normal [facility] Comment on above: Performed By: #### D DAVIDSON, MG, PHOS, CMP, LIPID, URIC #### [facility] [address] [address] [address] Sarmad Patino MYELOCYTE % 2 % Normal [facility] Comment on above: Performed By: #### D DAVIDSON, MG, PHOS, CMP, LIPID, URIC #### [facility] [address] [address] [address] Sarmad Patino NRBC Normal [facility] Comment on above: Performed By: #### D DAVIDSON, MG, PHOS, CMP, LIPID, URIC #### [facility] [address] [address] [address] Sarmad Patino PLT 180 103/ul Normal 150-450 [facility] Comment on above: Performed By: #### D DAVIDSON, MG, PHOS, CMP, LIPID, URIC #### [facility] [address] [place] [address] Dr. Sarmad Patino RBC 4.93 106/ul Normal 4.20-5.40 [facility] Comment on above: Performed By: #### D DAVIDSON, MG, PHOS, CMP, LIPID, URIC #### [facility] [address] [place] [address] Dr. Sarmad Patino RDW 13.9 % Normal 11.0-15.0 [facility] Comment on above: Performed By: #### D DAVIDSON, MG, PHOS, CMP, LIPID, URIC #### [facility] [address] [place] [address] Dr. Sarmad Patino SEG # 10.78 103/ul Critically high 1.40-6.50 [facility] Comment on above: Performed By: #### D DAVIDSON, MG, PHOS, CMP, LIPID, URIC #### [facility] [address] [place] [address] Dr. Sarmad Patino SEG % 77.0 % Critically high 43.0-75.0 [facility] Comment on above: Performed By: #### D DAVIDSON, MG, PHOS, CMP, LIPID, URIC #### [facility] [address] [place] [address] Dr. Sarmad Patino WBC 14.0 103/ul Critically high 4.0-11.0 [facility] Comment on above: Performed By: #### D DAVIDSON, MG, PHOS, CMP, LIPID, URIC #### [facility] [address] [place] [address]ECK [address] W [...] middle ear cavities clear. Skull base intact. Audio Visual Manager spaces normal. Parotid glands normal. Submandibular glands [...] F HOPPER Date: 2022-01-03 10:40 Normal [facility]on SARS-CoV-2 (COVID-19) RNA MURALI+probe Ql (Unsp spec) Detected Critically abnormal NOT DETECTED [facility] Comment on above: Result Comment: This test is not yet approved or cleared by the [place] FDA. When there are no FDA-approved or cleared tests available, and other criteria are met, FDA can make tests available under an emergency access mechanism called an Emergency Use Authorization (EUA). The EUA for this test is supported by the [place] of Health and Human Service's declaration that [...] DAVIDSON, MG, PHOS, CMP, LIPID, URIC #### [facility] [address] [place] [address] Dr. Sarmad Patino GROUP A STREP CULTUREon S. pyogenes Ag Ql (Unsp spec) Culture Observations: Negative for Group A Streptococcus Normal [facility] Comment on above: Performed By: #### U JUVE, LIPID, MG, CMP, DBIL, PHOS #### [facility] [address] [place] [address] Dr. Sarmad Patino INFLUENZA A AND B AGon 01-03 INFLUENZA A AG Negative Normal NEGATIVE SEE COMMENT [facility] Comment on above: Performed By: #### D DAVIDSON, MG, PHOS, CMP, LIPID, URIC #### [facility] [address] [place] [address] Dr. Sarmad Patino INFLUENZA B AG Negative Normal NEGATIVE SEE COMMENT [facility] Comment on above: Performed By: #### D DAVIDSON, MG, PHOS, CMP, LIPID, URIC #### [facility] [address] [place] [address] Dr. Sarmad Patino INTERNAL CONTROLS Within Normal Limits Normal Wi thin Normal Limits [facility] Comment on above: Performed By: #### D DAVIDSON, MG, PHOS, CMP, LIPID, URIC #### [facility] [address] [place] [address] Dr. Sarmad Patino PROF 14(COMP METB)on 022 Albumin [Mass/Vol] 2.5 g/dL Critically low 3.4-5.0 [facility] Comment on above: Performed By: #### U JUVE, LIPID, MG, CMP, DBIL, PHOS #### [facility] [address] [place] [address] Dr. Sarmad Patino Albumin/Globulin [Mass ratio] 0.5 {ratio} Normal [facility] Comment on above: Performed By: #### U JUVE, LIPID, MG, CMP, DBIL, PHOS #### [facility] [address] [place] [address] Dr. Sarmad Patino ALP [Catalytic activity/Vol] 185 U/L Critically high 46-116 [facility] Comment on above: Performed By: #### U JUEV, LIPID, MG, CMP, DBIL, PHOS #### [facility] [address] [place] [address] Dr. Sarmad Patino ALT [Catalytic activity/Vol] 108 U/L Critically high 14-59 [facility] Comment on above: Performed By: #### U JUVE, LIPID, MG, CMP, DBIL, PHOS #### [facility] [address] [place] [address] Dr. Sarmad Patino Anion gap [Moles/Vol] 8.3 mmol/L Normal [facility] Comment on above: Performed By: #### U JUVE, LIPID, MG, CMP, DBIL, PHOS #### [facility] [address] [place] [address] Dr. Sarmad Patino AST [Catalytic activity/Vol] 59 U/L Critically high 15-37 [facility] Comment on above: Performed By: #### U JUVE, LIPID, MG, CMP, DBIL, PHOS #### [facility] [address] [place] [address] Dr. Sarmad Patino Bilirubin [Mass/Vol] 0.6 mg/dL Normal 0.2-1.0 [facility] Comment on above: Performed By: #### U JUVE, LIPID, MG, CMP, DBIL, PHOS #### [facility] [address] [place] [address] Dr. Sarmad Patino Calcium [Mass/Vol] 9.0 mg/dL Normal 8.5-10.1 [facility] Comment on above: Performed By: #### U JUVE, LIPID, MG, CMP, DBIL, PHOS #### [facility] [address] [place] [address] Dr. Sarmad Patino Chloride [Moles/Vol] 100 mmol/L Normal 98-107 [facility] Comment on above: Performed By: #### U JUVE, LIPID, MG, CMP, DBIL, PHOS #### [facility] [address] [place] [address] Dr. Sarmad Patino CO2 [Moles/Vol] 29.0 mmol/L Normal 21.0-32.0 [facility] Comment on above: Performed By: #### U JUVE, LIPID, MG, CMP, DBIL, PHOS #### [facility] [address] [address] [address] Sarmad Patino Creatinine [Mass/Vol] 1.05 mg/dL Critically high 0.55-1.02 [facility] Comment on above: Performed By: #### U JUVE, LIPID, MG, CMP, DBIL, PHOS #### [facility] [address] [address] [address] Sarmad Patino EGFR-AF IRANIAN >60 Normal >=60 [facility] Comment on above: Performed By: #### U JUVE, LIPID, MG, CMP, DBIL, PHOS #### [facility] [address] [place] [address] Dr. Sarmad Patino EGFR-NON AF IRANIAN 53 mL/min/1.73m2 Critically low >=60 [facility] Comment on above: Performed By: #### U JUVE, LIPID, MG, CMP, DBIL, PHOS #### [facility] [address] [place] [address] Dr. Sarmad Patino Globulin (S) [Mass/Vol] 4.6 g/dL Normal [facility] Comment on above: Performed By: #### U JUVE, LIPID, MG, CMP, DBIL, PHOS #### [facility] [address] [place] [address] Dr. Sarmad Patino Glucose [Mass/Vol] 154 mg/dL Critically high 74-106 T [facility] Comment on above: Performed By: #### U JUVE, LIPID, MG, CMP, DBIL, PHOS #### [facility] [address] [place] [address] Dr. Sarmad Patino Potassium [Moles/Vol] 3.3 mmol/L Critically low 3.5-5.1 [facility] Comment on above: Performed By: #### U JUVE, LIPID, MG, CMP, DBIL, PHOS #### [facility] [address] [address] [address] Sarmad Patino Protein [Mass/Vol] 7.1 g/dL Normal 6.4-8.2 [facility] Comment on above: Performed By: #### U JUVE, LIPID, MG, CMP, DBIL, PHOS #### [facility] [address] [address] [address] Sarmad Patino Sodium [Moles/Vol] 134 mmol/L Critically low 136-145 Th [facility] Comment on above: Performed By: #### U JUVE, LIPID, MG, CMP, DBIL, PHOS #### [facility] [address] [address] [address] Sarmad Patino Urea nitrogen [Mass/Vol] 24.0 mg/dL Critically high 7.0-18.0 [facility] Comment on above: Performed By: #### U JUVE, LIPID, MG, CMP, DBIL, PHOS #### [facility] [address] [address] [address] Sarmad Patino Urea nitrogen/Creatinine [Mass ratio] 22.9 mg/mg Normal [facility] Comment on above: Performed By: #### U JUVE, LIPID, MG, CMP, DBIL, PHOS #### [facility] [address] [address] [address] Sarmad Patino STREPT SCREENon 01-03-2022 STREP SCREEN A Negative Normal NEGATIVE [facility] Comment on above: Performed By: #### U JUVE, LIPID, MG, CMP, DBIL, PHOS #### [facility] [address] [place] [address] Dr. Sarmad Patino XR CHEST 2 Von [...] MAYRA WHITESIDE Date: 2022-01-03 03:54 Normal [facility] Quick Strepon 12-28-2021 S. pyogenes Org specific cx Ql (Throat) Negative [facility] Other Quick Strep [facility] Other SARS-CoV-2 (COVID-19) RNA NA A+probe Ql (Resp)on 12-25-2021 SARS-CoV-2 (COVID-19) RNA MURALI+probe Ql (Unsp spec) Negative [facility] Other FK506 (TACROLIMUS) WHOLE BLO ODon 12-08-2021 Tacrolimus (FK506), Blood 6.6 ng/mL Normal 2.0-20.0 [facility] Comment on above: Result Comment: Trou gh (immediately following transplant) 15.0 . Trough (steady state, 2 weeks or more after transplant): 3.0 - 8.0 . Performed by LC-MS/MS technology. Performed By: #### D DAVIDSON, MG, PHOS, CMP, LIPID, URIC #### [facility] [address] [place] [address] Dr. Sarmad Patino RAPAMUNE(SIROLIMUS)on 2021 Rapamune(Sirolimus), whole blood 9.6 ng/mL Normal 3.0-20.0 [facility] Comment on above: Result Comment: Perf ormed by LC/MS-MS technology . This test was developed and its performance characteristics determined by [facility] [facility]. It has not been cleared or approved by the Food and Drug Administration. Performed By: #### D DAVIDSON, MG, PHOS, CMP, LIPID, URIC #### [facility] [address] [place] [address] Dr. Sarmad Patino BILIRUBIN CONJUGATED (DIRECT )on 12-05-2021 BILI, CONJUGATED 0.1 mg/dL Normal 0.0-0.2 [facility] Comment on above: Performed By: #### D DAVIDSON, MG, PHOS, CMP, LIPID, URIC #### [facility] [address] [address] [address] Sarmad Patino CBC W MANUAL DIFFon 12-06-19 22 ATYPICAL LYMPH # Normal [facility] Comment on above: Performed By: #### D DAVIDSON, MG, PHOS, CMP, LIPID, URIC #### [facility] [address] [address] [address] Sarmad Patino ATYPICAL LYMPH % Normal [facility] Comment on above: Performed By: #### D DAVIDSON, MG, PHOS, CMP, LIPID, URIC #### [facility] [address] [place] [address] Dr. Sarmad Patino BAND # Normal 0.0-0.3 [facility] Comment on above: Performed By: #### D DAVIDSON, MG, PHOS, CMP, LIPID, URIC #### [facility] [address] [place] [address] Dr. Sarmad Patino BAND % Normal 0-5 [facility] Comment on above: Performed By: #### D DAVIDSON, MG, PHOS, CMP, LIPID, URIC #### [facility] [address] [address] [address] Sarmad Patino BASOM # 0.00 103/ul Normal 0.00-0.10 [facility] Comment on above: Performed By: #### D DAVIDSON, MG, PHOS, CMP, LIPID, URIC #### [facility] [address] [address] [address] Sarmad Patino BASOM % 0.0 % Critically low 0.2-2.0 [facility] Comment on above: Performed By: #### D DAVIDSON, MG, PHOS, CMP, LIPID, URIC #### [facility] [address] [address] [address] Sarmad Patino BLAST # Normal [facility] Comment on above: Performed By: #### D DAVIDSON, MG, PHOS, CMP, LIPID, URIC #### [facility] [address] [address] [address] Sarmad Patino BLAST % Normal [facility] Comment on above: Performed By: #### D DAVIDSON, MG, PHOS, CMP, LIPID, URIC #### [facility] [address] [address] [address] Sarmad Patino CORRECTED WBC Normal 4.0-11.0 [facility] Comment on above: Performed By: #### D DAVIDSON, MG, PHOS, CMP, LIPID, URIC #### [facility] [address] [place] [address] Dr. Sarmad Patino EOS # 0.15 103/ul Normal 0.00-0.70 [facility] Comment on above: Performed By: #### D DAVIDSON, MG, PHOS, CMP, LIPID, URIC #### [facility] [address] [place] [address] Dr. Sarmad Patino EOS% 2.0 % Normal 0.9-7.0 [facility] Comment on above: Performed By: #### D DAVIDSON, MG, PHOS, CMP, LIPID, URIC #### [facility] [address] [place] [address] Dr. Sarmad Patino HCT 47.5 % Normal 36.0-48.0 [facility] Comment on above: Performed By: #### D DAVIDSON, MG, PHOS, CMP, LIPID, URIC #### [facility] [address] [place] [address] Dr. Sarmad Patino HGB 15.6 g/dl Normal 12.0-16.0 [facility] Comment on above: Performed By: #### D DAVIDSON, MG, PHOS, CMP, LIPID, URIC #### [facility] [address] [place] [address] Dr. Sarmad Patino LYMPHM # 1.46 103/ul Normal 1.20-3.80 [facility] Comment on above: Performed By: #### D DAVIDSON, MG, PHOS, CMP, LIPID, URIC #### [facility] [address] [place] [address] Dr. Sarmad Patino LYMPHM% 19.0 % Critically low 20.5-60.0 [facility] Comment on above: Performed By: #### D DAVIDSON, MG, PHOS, CMP, LIPID, URIC #### [facility] [address] [address] [address] Sarmad Patino MCH 28.9 pg Normal 26.7-34.0 [facility] Comment on above: Performed By: #### D DAVIDSON, MG, PHOS, CMP, LIPID, URIC #### [facility] [address] [address] [address] Sarmad Patino MCHC 32.8 g/dl Normal 29.9-35.2 [facility] Comment on above: Performed By: #### D DAVIDSON, MG, PHOS, CMP, LIPID, URIC #### [facility] [address] [address] [address] Sarmad Patino MCV 88.1 fL Normal 81.0-99.0 [facility] Comment on above: Performed By: #### D DAVIDSON, MG, PHOS, CMP, LIPID, URIC #### [facility] [address] [address] [address] Sarmad Patino METAMYELOCYTE # Normal [facility] Comment on above: Performed By: #### D DAVIDSON, MG, PHOS, CMP, LIPID, URIC #### [facility] [address] [address] [address] Sarmad Patino METAMYELOCYTE % Normal [facility] Comment on above: Performed By: #### D DAVIDSON, MG, PHOS, CMP, LIPID, URIC #### [facility] [address] [address] [address] Sarmad Patino MONOM# 0.85 103/ul Critically high 0.30-0.80 [facility] Comment on above: Performed By: #### D DAVIDSON, MG, PHOS, CMP, LIPID, URIC #### [facility] [address] [address] [address] Sarmad Patino MONOM% 11.0 % Normal 1.7-12.0 [facility] Comment on above: Performed By: #### D DAVIDSON, MG, PHOS, CMP, LIPID, URIC #### [facility] [address] [address] [address] Sarmad Patino MPV 11.3 fL Normal 9.5-13.5 [facility] Comment on above: Performed By: #### D DAVIDSON, MG, PHOS, CMP, LIPID, URIC #### [facility] [address] [place] [address] Dr. Sarmad Patino MYELOCYTE # Normal [facility] Comment on above: Performed By: #### D DVAIDSON, MG, PHOS, CMP, LIPID, URIC #### [facility] [address] [place] [address] Dr. Sarmad Patino MYELOCYTE % Normal [facility] Comment on above: Performed By: #### D DAVIDSON, MG, PHOS, CMP, LIPID, URIC #### [facility] [address] [place] [address] Dr. Sarmad Patino NRBC Normal [facility] Comment on above: Performed By: #### D DAVIDSON, MG, PHOS, CMP, LIPID, URIC #### [facility] [address] [place] [address] Dr. Sarmad Patino PLT 214 103/ul Normal 150-450 [facility] Comment on above: Performed By: #### D DAVIDSON, MG, PHOS, CMP, LIPID, URIC #### [facility] [address] [place] [address] Dr. Sarmad Patino RBC 5.39 106/ul Normal 4.20-5.40 [facility] Comment on above: Performed By: #### D DAVIDSON, MG, PHOS, CMP, LIPID, URIC #### [facility] [address] [place] [address] Dr. Sarmad Patino RDW 13.8 % Normal 11.0-15.0 [facility] Comment on above: Performed By: #### D DAVIDSON, MG, PHOS, CMP, LIPID, URIC #### [facility] [address] [place] [address] Dr. Sarmad Patino SEG # 5.24 103/ul Normal 1.40-6.50 [facility] Comment on above: Performed By: #### D DAVIDSON, MG, PHOS, CMP, LIPID, URIC #### [facility] [address] [place] [address] Dr. Sarmad Patino SEG % 68.0 % Normal 43.0-75.0 [facility] Comment on above: Performed By: #### D DAVIDSON, MG, PHOS, CMP, LIPID, URIC #### [facility] [address] [address] [address] Sarmad Patino WBC 7.7 103/ul Normal 4.0-11.0 [facility] Comment on above: Performed By: #### D DAVIDSON, MG, PHOS, CMP, LIPID, URIC #### [facility] [address] [place] [address] Dr. Sarmad Patino LIPID PROFILEon 12-05-2021 CHOL-HDL RATIO NORM SEE BELOW Normal [facility] Comment on above: Result Comment: 3.3 - 4.4 LOW RISK 4.4 - 7.1 AVERAGE RISK 7.1 - 11.0 MODERATE RISK >11.0 HIGH RISK Performed By: #### D DAVIDSON, MG, PHOS, CMP, LIPID, URIC #### [facility] [address] [place] [address] Dr. Sarmad Patino Cholesterol [Mass/Vol] 170 mg/dL Normal <=200 [facility] Comment on above: Performed By: #### D DAVIDSON, MG, PHOS, CMP, LIPID, URIC #### [facility] [address] [address] [address] Sarmad Patino Cholesterol in HDL [Mass/Vol] 54 mg/dL Normal 40-60 [facility] Comment on above: Performed By: #### D DAVIDSON, MG, PHOS, CMP, LIPID, URIC #### [facility] [address] [place] [address] Dr. Sarmad Patino Cholesterol in LDL [Mass/Vol] 92.2 mg/dL Normal [facility] Comment on above: Performed By: #### D DAVIDSON, MG, PHOS, CMP, LIPID, URIC #### [facility] [address] [place] [address] Dr. Sarmad Patino Cholesterol.total/Cho lesterol in HDL [Mass ratio] 3.1 {ratio} Normal [facility] Comment on above: Performed By: #### D DAVIDSON, MG, PHOS, CMP, LIPID, URIC #### [facility] [address] [address] [address] Sarmad Patino HDL NORMAL > or = 60 mg/dl - LO W CARDIOVASCULAR RISK <40 mg/dl - HIGH CARDIOVASCULAR RISK Normal [facility] Comment on above: Performed By: #### D DAVIDSON, MG, PHOS, CMP, LIPID, URIC #### [facility] [address] [address] [address] Sarmad Patino LDL CALC NORMAL SEE BELOW Normal [facility] Comment on above: Result Comment: <100 mg/dl OPTIMAL 100 - 129 mg/dl NEAR OR ABOVE OPTIMAL 130 - 159 mg/dl BORDERLINE HIGH 160 - 189 mg/dl HIGH >190 mg/dl VERY HIGH Performed By: #### D DAVIDSON, MG, PHOS, CMP, LIPID, URIC #### [facility] [address] [address] [address] Sarmad Patino Triglyceride [Mass/Vol] 119 mg/dL Normal <=150 [facility] Comment on above: Performed By: #### D DAVIDSON, MG, PHOS, CMP, LIPID, URIC #### [facility] [address] [address] [address] Sarmad Patino VLDL CALC 23.8 mg/dL Normal [facility] Comment on above: Performed By: #### D DAVIDSON, MG, PHOS, CMP, LIPID, URIC #### [facility] [address] [address] [address] Sarmad Patino MAGNESIUMon 12-05-2021 Magnesium [Mass/Vol] 1.8 mg/dL Normal 1.8-2.4 [facility] Comment on above: Performed By: #### D DAVIDSON, MG, PHOS, CMP, LIPID, URIC #### [facility] [address] [address] [address] Sarmad Patino PHOSPHORUSon 12-05-2021 Phosphate [Mass/Vol] 3.8 mg/dL Normal 2.6-4.7 [facility] Comment on above: Performed By: #### D DAVIDSON, MG, PHOS, CMP, LIPID, URIC #### [facility] [address] [address] [address] Sarmad Patino PROF 14(COMP METB)on 022 Albumin [Mass/Vol] 3.7 g/dL Normal 3.4-5.0 [facility] Comment on above: Performed By: #### D DAVIDSON, MG, PHOS, CMP, LIPID, URIC #### [facility] [address] [place] [address] Dr. Sarmad Patino Albumin/Globulin [Mass ratio] 1.0 {ratio} Normal [facility] Comment on above: Performed By: #### D DAVIDSON, MG, PHOS, CMP, LIPID, URIC #### [facility] [address] [place] [address] Dr. Sarmad Patino ALP [Catalytic activity/Vol] 151 U/L Critically high 46-116 [facility] Comment on above: Performed By: #### D DAVIDSON, MG, PHOS, CMP, LIPID, URIC #### [facility] [address] [place] [address] Dr. Sarmad Patino ALT [Catalytic activity/Vol] 27 U/L Normal 14-59 [facility] Comment on above: Performed By: #### D DAVIDSON, MG, PHOS, CMP, LIPID, URIC #### [facility] [address] [place] [address] Dr. Sarmad Patino Anion gap [Moles/Vol] 14.5 mmol/L Normal [facility] Comment on above: Performed By: #### D DAVIDSON, MG, PHOS, CMP, LIPID, URIC #### [facility] [address] [place] [address] Dr. Sarmad Patino AST [Catalytic activity/Vol] 25 U/L Normal 15-37 [facility] Comment on above: Performed By: #### D DAVIDSON, MG, PHOS, CMP, LIPID, URIC #### [facility] [address] [place] [address] Dr. Sarmad Patino Bilirubin [Mass/Vol] 0.4 mg/dL Normal 0.2-1.0 [facility] Comment on above: Performed By: #### D DAVIDSON, MG, PHOS, CMP, LIPID, URIC #### [facility] [address] [address] [address] Sarmad Patino Calcium [Mass/Vol] 9.4 mg/dL Normal 8.5-10.1 [facility] Comment on above: Performed By: #### D DAVIDSON, MG, PHOS, CMP, LIPID, URIC #### [facility] [address] [place] [address] Dr. Sarmad Patino Chloride [Moles/Vol] 103 mmol/L Normal 98-107 [facility] Comment on above: Performed By: #### D DAVIDSON, MG, PHOS, CMP, LIPID, URIC #### [facility] [address] [place] [address] Dr. Sarmad Patino CO2 [Moles/Vol] 26.5 mmol/L Normal 21.0-32.0 [facility] Comment on above: Performed By: #### D DAVIDSON, MG, PHOS, CMP, LIPID, URIC #### [facility] [address] [place] [address] Dr. Sarmad Patino Creatinine [Mass/Vol] 0.87 mg/dL Normal 0.55-1.02 [facility] Comment on above: Performed By: #### D DAVIDSON, MG, PHOS, CMP, LIPID, URIC #### [facility] [address] [place] [address] Dr. Sarmad Patino EGFR-AF IRANIAN >60 Normal >=60 [facility] Comment on above: Performed By: #### D DAVIDSON, MG, PHOS, CMP, LIPID, URIC #### [facility] [address] [place] [address] Dr. Sarmad Patino EGFR-NON AF IRANIAN >60 Normal >=60 [facility] Comment on above: Performed By: #### D DAVIDSON, MG, PHOS, CMP, LIPID, URIC #### [facility] [address] [place] [address] Dr. Sarmad Patino Globulin (S) [Mass/Vol] 3.8 g/dL Normal [facility] Comment on above: Performed By: #### D DAVIDSON, MG, PHOS, CMP, LIPID, URIC #### [facility] [address] [place] [address] Dr. Sarmad Patino Glucose [Mass/Vol] 104 mg/dL Normal 74-106 [facility] Comment on above: Performed By: #### D DAVIDSON, MG, PHOS, CMP, LIPID, URIC #### [facility] [address] [address] [address] Sarmad Patino Potassium [Moles/Vol] 4.0 mmol/L Normal 3.5-5.1 [facility] Comment on above: Performed By: #### D DAVIDSON, MG, PHOS, CMP, LIPID, URIC #### [facility] [address] [address] [address] Sarmad Patino Protein [Mass/Vol] 7.5 g/dL Normal 6.4-8.2 [facility] Comment on above: Performed By: #### D DAVIDSON, MG, PHOS, CMP, LIPID, URIC #### [facility] [address] [place] [address] Dr. Sarmad Patino Sodium [Moles/Vol] 140 mmol/L Normal 136-145 [facility] Comment on above: Performed By: #### D DAVIDSON, MG, PHOS, CMP, LIPID, URIC #### [facility] [address] [address] [address] Sarmad Patino Urea nitrogen [Mass/Vol] 19.0 mg/dL Critically high 7.0-18.0 [facility] Comment on above: Performed By: #### D DAVIDSON, MG, PHOS, CMP, LIPID, URIC #### [facility] [address] [address] [address] Sarmad Patino Urea nitrogen/Creatinine [Mass ratio] 21.8 mg/mg Normal [facility] Comment on above: Performed By: #### D DAVIDSON, MG, PHOS, CMP, LIPID, URIC #### [facility] [address] [place] [address] Dr. Sarmad Patino URIC ACID SERUMon 12-05-2021 Urate [Mass/Vol] 5.2 mg/dL Normal 2.6-6.0 [facility] Comment on above: Performed By: #### D DAVIDSON, MG, PHOS, CMP, LIPID, URIC #### [facility] [address] [address] [address] Sarmad Patino EVEROLIMU, WHOLE BLOODon EVEROLIMUS 7.0 ng/mL Normal 3.0-8.0 [facility] Comment on above: Result Comment: Perf ormed by LC-MS/MS technology. Performed By: #### D DAVIDSON, MG, PHOS, CMP, LIPID, URIC #### [facility] [address] [address] [address] Sarmad Patino FK506 (TACROLIMUS) WHOLE BLO ODon 11-10-2021 Tacrolimus (FK506), Blood 6.4 ng/mL Normal 2.0-20.0 [facility] Comment on above: Result Comment: Trou gh (immediately following transplant) 15.0 . Trough (steady state, 2 weeks or more after transplant): 3.0 - 8.0 . Performed by LC-MS/MS technology. Performed By: #### D DAVIDSON, MG, PHOS, CMP, LIPID, URIC #### [facility] [address] [place] [address] Dr. Sarmad Patino BK VIRUS PCR QUANTon 022 BKV DNA QUANT PCR PLASMA Negative Normal Negative [facility] Comment on above: Result Comment: No B K DNA detected. . The linear range of the assay is 22 - 100,000,000 IU/mL. Performed By: #### U JUVE, LIPID, MG, CMP, DBIL, PHOS #### [facility] [address] [place] [address] Dr. Sarmad Patino Log10 BKV DNA Plasma Normal [facility] Comment on above: Performed By: #### U JUVE, LIPID, MG, CMP, DBIL, PHOS #### [facility] [address] [place] [address] Dr. Sarmad Patino BILIRUBIN CONJUGATED (DIRECT )on 11-07-2021 BILI, CONJUGATED 0.1 mg/dL Normal 0.0-0.2 [facility] Comment on above: Performed By: #### D DAVIDSON, MG, PHOS, CMP, LIPID, URIC #### [facility] [address] [place] [address] Dr. Sarmad Patino CBC AUTO DIFFon 11-07-2021 BASO # 0.0 103/ul Normal 0.0-0.1 [facility] Comment on above: Performed By: #### D DAVIDSON, MG, PHOS, CMP, LIPID, URIC #### [facility] [address] [place] [address] Dr. Sarmad Patino Basophils/100 WBC (Bld) 0.3 % Normal 0.2-2.0 [facility] Comment on above: Performed By: #### D DAVIDSON, MG, PHOS, CMP, LIPID, URIC #### [facility] [address] [place] [address] Dr. Sarmad Patino EO # 0.1 103/ul Normal 0.0-0.7 [facility] Comment on above: Performed By: #### D DAVIDSON, MG, PHOS, CMP, LIPID, URIC #### [facility] [address] [place] [address] Dr. Sarmad Patino Eosinophils/100 WBC (Bld) 2.1 % Normal 0.9-7.0 [facility] Comment on above: Performed By: #### D DAVIDSON, MG, PHOS, CMP, LIPID, URIC #### [facility] [address] [place] [address] Dr. Sarmad Patino Erythrocyte distribution width (RBC) [Ratio] 13.5 % Normal 11.0-15.0 [facility] Comment on above: Performed By: #### D DAVIDSON, MG, PHOS, CMP, LIPID, URIC #### [facility] [address] [place] [address] Dr. Sarmad Patino Hematocrit (Bld) [Volume fraction] 46.7 % Normal 36.0-48.0 [facility] Comment on above: Performed By: #### D DAVIDSON, MG, PHOS, CMP, LIPID, URIC #### [facility] [address] [place] [address] Dr. Sarmad Patino Hemoglobin (Bld) [Mass/Vol] 15.1 g/dL Normal 12.0-16.0 [facility] Comment on above: Performed By: #### D DAVIDSON, MG, PHOS, CMP, LIPID, URIC #### [facility] [address] [address] [address] Sarmad Patino IG # 0.03 10e3/ul Normal 0.00-0.03 [facility] Comment on above: Performed By: #### D DAVIDSON, MG, PHOS, CMP, LIPID, URIC #### [facility] [address] [place] [address] Dr. Sarmad Patino IG % 0.5 % Normal 0.0-0.5 [facility] Comment on above: Performed By: #### D DAVDISON, MG, PHOS, CMP, LIPID, URIC #### [facility] [address] [place] [address] Dr. Sarmad Patino LYMPH # 1.3 103/ul Normal 1.2-3.8 [facility] Comment on above: Performed By: #### D DAVIDSON, MG, PHOS, CMP, LIPID, URIC #### [facility] [address] [place] [address] Dr. Sarmad Patino Lymphocytes/100 WBC (Bld) 19.9 % Critically low 20.5-60.0 [facility] Comment on above: Performed By: #### D DAVIDSON, MG, PHOS, CMP, LIPID, URIC #### [facility] [address] [place] [address] Dr. Sarmad Patino MANUAL DIFF REQ NO Normal [facility] Comment on above: Performed By: #### D DAVIDSON, MG, PHOS, CMP, LIPID, URIC #### [facility] [address] [place] [address] Dr. Sarmad Patino MCH (RBC) [Entitic mass] 28.6 pg Normal 26.7-34.0 [facility] Comment on above: Performed By: #### D DAVIDSON, MG, PHOS, CMP, LIPID, URIC #### [facility] [address] [place] [address] Dr. Sarmad Patino MCHC (RBC) [Mass/Vol] 32.3 g/dL Normal 29.9-35.2 [facility] Comment on above: Performed By: #### D DAVIDSON, MG, PHOS, CMP, LIPID, URIC #### [facility] [address] [place] [address] Dr. Sarmad Patino MCV (RBC) [Entitic vol] 88.4 fL Normal 81.0-99.0 [facility] Comment on above: Performed By: #### D DAVIDSON, MG, PHOS, CMP, LIPID, URIC #### [facility] [address] [place] [address] Dr. Sarmad Patino MONO # 0.8 103/ul Normal 0.3-0.8 [facility] Comment on above: Performed By: #### D DAVIDSON, MG, PHOS, CMP, LIPID, URIC #### [facility] [address] [place] [address] Dr. Sarmad Patino Monocytes/100 WBC (Bld) 12.9 % Critically high 1.7-12.0 [facility] Comment on above: Performed By: #### D DAVIDSON, MG, PHOS, CMP, LIPID, URIC #### [facility] [address] [place] [address] Dr. Sarmad Patino NEUT # 4.0 103/ul Normal 1.4-6.5 [facility] Comment on above: Performed By: #### D DAVIDSON, MG, PHOS, CMP, LIPID, URIC #### [facility] [address] [place] [address] Dr. Sarmad Patino Neutrophils/100 WBC (Bld) 64.3 % Normal 43.0-75.0 [facility] Comment on above: Performed By: #### D DAVIDSON, MG, PHOS, CMP, LIPID, URIC #### [facility] [address] [place] [address] Dr. Sarmad Patino Platelet mean volume (Bld) [Entitic vol] 11.3 fL Normal 9.5-13.5 [facility] Comment on above: Performed By: #### D DAVIDSON, MG, PHOS, CMP, LIPID, URIC #### [facility] [address] [place] [address] Dr. Sarmad Patino PLT 241 103/ul Normal 150-450 [facility] Comment on above: Performed By: #### D DAVIDSON, MG, PHOS, CMP, LIPID, URIC #### [facility] [address] [address] [address] Sarmad Patino RBC 5.28 106/ul Normal 4.20-5.40 [facility] Comment on above: Performed By: #### D DAVIDSON, MG, PHOS, CMP, LIPID, URIC #### [facility] [address] [address] [address] Sarmad Patino WBC 6.3 103/ul Normal 4.0-11.0 [facility] Comment on above: Performed By: #### D DAVIDSON, MG, PHOS, CMP, LIPID, URIC #### [facility] [address] [address] [address] Sarmad Patino GLYCOHEMOGLOBIN A1Con 2021 ADA RECOMMENDATION SEE BELOW Normal [facility] Comment on above: Result Comment: ADA RECOMMENDED LIMIT 4.0 - 6.0 ADA THERAPEUTIC TARGET < 7.0 ACTION SUGGESTED > 7.0 Performed By: #### D DAVIDSON, MG, PHOS, CMP, LIPID, URIC #### [facility] [address] [place] [address] Dr. Sarmad Patino Glucose [Mass/Vol] 120 mg/dL Normal [facility] Comment on above: Performed By: #### D DAVIDSON, MG, PHOS, CMP, LIPID, URIC #### [facility] [address] [place] [address] Dr. Sarmad Patino HbA1c (Bld) [Mass fraction] 5.8 % Normal 4.5-6.2 [facility] Comment on above: Performed By: #### D DAVIDSON, MG, PHOS, CMP, LIPID, URIC #### [facility] [address] [place] [address] Dr. Sarmad Patino LIPID PROFILEon 11-07-2021 CHOL-HDL RATIO NORM SEE BELOW Normal [facility] Comment on above: Result Comment: 3.3 - 4.4 LOW RISK 4.4 - 7.1 AVERAGE RISK 7.1 - 11.0 MODERATE RISK >11.0 HIGH RISK Performed By: #### D DAVIDSON, MG, PHOS, CMP, LIPID, URIC #### [facility] [address] [address] [address] Sarmad Patino Cholesterol [Mass/Vol] 157 mg/dL Normal <=200 [facility] Comment on above: Performed By: #### D DAVIDSON, MG, PHOS, CMP, LIPID, URIC #### [facility] [address] [address] [address] Sarmad Patino Cholesterol in HDL [Mass/Vol] 48 mg/dL Normal 40-60 [facility] Comment on above: Performed By: #### D DAVIDSON, MG, PHOS, CMP, LIPID, URIC #### [facility] [address] [address] [address] Sarmad Patino Cholesterol in LDL [Mass/Vol] 89.6 mg/dL Normal [facility] Comment on above: Performed By: #### D DAVIDSON, MG, PHOS, CMP, LIPID, URIC #### [facility] [address] [place] [address] Dr. Sarmad Patino Cholesterol.total/Cho lesterol in HDL [Mass ratio] 3.3 {ratio} Normal [facility] Comment on above: Performed By: #### D DAVIDSON, MG, PHOS, CMP, LIPID, URIC #### [facility] [address] [address] [address] Sarmad Patino HDL NORMAL > or = 60 mg/dl - LO W CARDIOVASCULAR RISK <40 mg/dl - HIGH CARDIOVASCULAR RISK Normal [facility] Comment on above: Performed By: #### D DAVIDSON, MG, PHOS, CMP, LIPID, URIC #### [facility] [address] [address] [address] Sarmad Patino LDL CALC NORMAL SEE BELOW Normal [facility] Comment on above: Result Comment: <100 mg/dl OPTIMAL 100 - 129 mg/dl NEAR OR ABOVE OPTIMAL 130 - 159 mg/dl BORDERLINE HIGH 160 - 189 mg/dl HIGH >190 mg/dl VERY HIGH Performed By: #### D DAVIDSON, MG, PHOS, CMP, LIPID, URIC #### [facility] [address] [address] [address] Sarmad Patino Triglyceride [Mass/Vol] 97 mg/dL Normal <=150 [facility] Comment on above: Performed By: #### D DAVIDSON, MG, PHOS, CMP, LIPID, URIC #### [facility] [address] [address] [address] Sarmad Patino VLDL CALC 19.4 mg/dL Normal [facility] Comment on above: Performed By: #### D DAVIDSON, MG, PHOS, CMP, LIPID, URIC #### [facility] [address] [place] [address] Dr. Sarmad Patino MAGNESIUMon 11-07-2021 Magnesium [Mass/Vol] 1.9 mg/dL Normal 1.8-2.4 [facility] Comment on above: Performed By: #### D DAVIDSON, MG, PHOS, CMP, LIPID, URIC #### [facility] [address] [place] [address] Dr. Sarmad Patino PHOSPHORUSon 11-07-2021 Phosphate [Mass/Vol] 3.4 mg/dL Normal 2.6-4.7 [facility] Comment on above: Performed By: #### D DAVIDSON, MG, PHOS, CMP, LIPID, URIC #### [facility] [address] [place] [address] Dr. Sarmad Patino PROF 14(COMP METB)on 022 Albumin [Mass/Vol] 3.6 g/dL Normal 3.4-5.0 [facility] Comment on above: Performed By: #### D DAVIDSON, MG, PHOS, CMP, LIPID, URIC #### [facility] [address] [place] [address] Dr. Sarmad Patino Albumin/Globulin [Mass ratio] 0.9 {ratio} Normal [facility] Comment on above: Performed By: #### D DAVIDSON, MG, PHOS, CMP, LIPID, URIC #### [facility] [address] [place] [address] Dr. Sarmad Patino ALP [Catalytic activity/Vol] 158 U/L Critically high 46-116 [facility] Comment on above: Performed By: #### D DAVIDSON, MG, PHOS, CMP, LIPID, URIC #### [facility] [address] [place] [address] Dr. Sarmad Patino ALT [Catalytic activity/Vol] 23 U/L Normal 14-59 [facility] Comment on above: Performed By: #### D DAVIDSON, MG, PHOS, CMP, LIPID, URIC #### [facility] [address] [address] [address] Sarmad Patino Anion gap [Moles/Vol] 14.8 mmol/L Normal [facility] Comment on above: Performed By: #### D DAVIDSON, MG, PHOS, CMP, LIPID, URIC #### [facility] [address] [address] [address] Sarmad Patino AST [Catalytic activity/Vol] 18 U/L Normal 15-37 [facility] Comment on above: Performed By: #### D DAVIDSON, MG, PHOS, CMP, LIPID, URIC #### [facility] [address] [place] [address] Dr. Sarmad Patino Bilirubin [Mass/Vol] 0.4 mg/dL Normal 0.2-1.0 [facility] Comment on above: Performed By: #### D DAVIDSON, MG, PHOS, CMP, LIPID, URIC #### [facility] [address] [address] [address] Sarmad Patino Calcium [Mass/Vol] 9.3 mg/dL Normal 8.5-10.1 [facility] Comment on above: Performed By: #### D DAVIDSON, MG, PHOS, CMP, LIPID, URIC #### [facility] [address] [address] [address] Sarmad Patino Chloride [Moles/Vol] 105 mmol/L Normal 98-107 [facility] Comment on above: Performed By: #### D DAVIDSON, MG, PHOS, CMP, LIPID, URIC #### [facility] [address] [address] [address] Sarmad Patino CO2 [Moles/Vol] 26.1 mmol/L Normal 21.0-32.0 [facility] Comment on above: Performed By: #### D DAVIDSON, MG, PHOS, CMP, LIPID, URIC #### [facility] [address] [place] [address] Dr. Sarmad Patino Creatinine [Mass/Vol] 0.84 mg/dL Normal 0.55-1.02 [facility] Comment on above: Performed By: #### D DAVIDSON, MG, PHOS, CMP, LIPID, URIC #### [facility] [address] [address] [address] Sarmad Patino EGFR-AF IRANIAN >60 Normal >=60 [facility] Comment on above: Performed By: #### D DAVIDSON, MG, PHOS, CMP, LIPID, URIC #### [facility] [address] [address] [address] Sarmad Patino EGFR-NON AF IRANIAN >60 Normal >=60 [facility] Comment on above: Performed By: #### D DAVIDSON, MG, PHOS, CMP, LIPID, URIC #### [facility] [address] [place] [address] Dr. Sarmad Patino Globulin (S) [Mass/Vol] 3.8 g/dL Normal [facility] Comment on above: Performed By: #### D DAVIDSON, MG, PHOS, CMP, LIPID, URIC #### [facility] [address] [address] [address] Sarmad Patino Glucose [Mass/Vol] 97 mg/dL Normal 74-106 [facility] Comment on above: Performed By: #### D DAVIDSON, MG, PHOS, CMP, LIPID, URIC #### [facility] [address] [place] [address] Dr. Sarmad Patino Potassium [Moles/Vol] 3.9 mmol/L Normal 3.5-5.1 [facility] Comment on above: Performed By: #### D DAVIDSON, MG, PHOS, CMP, LIPID, URIC #### [facility] [address] [address] [address] Sarmad Patino Protein [Mass/Vol] 7.4 g/dL Normal 6.4-8.2 [facility] Comment on above: Performed By: #### D DAVIDSON, MG, PHOS, CMP, LIPID, URIC #### [facility] [address] [address] [address] Sarmad Pation Sodium [Moles/Vol] 142 mmol/L Normal 136-145 [facility] Comment on above: Performed By: #### D DAVIDSON, MG, PHOS, CMP, LIPID, URIC #### [facility] [address] [address] [address] Sarmad Patino Urea nitrogen [Mass/Vol] 21.0 mg/dL Critically high 7.0-18.0 [facility] Comment on above: Performed By: #### D DAVIDSON, MG, PHOS, CMP, LIPID, URIC #### [facility] [address] [address] [address] Sarmad Patino Urea nitrogen/Creatinine [Mass ratio] 25.0 mg/mg Normal [facility] Comment on above: Performed By: #### D DAVIDSON, MG, PHOS, CMP, LIPID, URIC #### [facility] [address] [place] [address] Dr. Sarmad Patino URIC ACID SERUMon 11-07-2021 Urate [Mass/Vol] 5.1 mg/dL Normal 2.6-6.0 [facility] Comment on above: Performed By: #### D DAVIDSON, MG, PHOS, CMP, LIPID, URIC #### [facility] [address] [address] [address] Sarmad Patino BOX TEST SENT OUTon 10-16-19 SENT TO REF LAB 10/15/2021 Normal [facility] Comment on above: Performed By: #### D DAVIDSON, MG, PHOS, CMP, LIPID, URIC #### [facility] [address] [place] [address] Dr. Sarmad SALAZAROLIMU, WHOLE BLOODon EVEROLIMUS 6.7 ng/mL Normal 3.0-8.0 [facility] Comment on above: Result Comment: Perf ormed by LC-MS/MS technology. Performed By: #### D DAVIDSON, MG, PHOS, CMP, LIPID, URIC #### [facility] [address] [place] [address] Dr. Sarmad Patino FK506 (TACROLIMUS) WHOLE BLO ODon 10-10-2021 Tacrolimus (FK506), Blood 5.9 ng/mL Normal 2.0-20.0 [facility] Comment on above: Result Comment: Trou gh (immediately following transplant) 15.0 . Trough (steady state, 2 weeks or more after transplant): 3.0 - 8.0 . Performed by LC-MS/MS technology. Performed By: #### D DAVIDSON, MG, PHOS, CMP, LIPID, URIC #### [facility] [address] [place] [address] Dr. Sarmad Patino BILIRUBIN CONJUGATED (DIRECT )on 10-08-2021 BILI, CONJUGATED 0.1 mg/dL Normal 0.0-0.2 [facility] Comment on above: Performed By: #### U JUVE, LIPID, MG, CMP, DBIL, PHOS #### [facility] [address] [place] [address] Dr. Sarmad Patino CBC AUTO DIFFon 10-08-2021 BASO # 0.0 103/ul Normal 0.0-0.1 [facility] Comment on above: Performed By: #### D DAVIDSON, MG, PHOS, CMP, LIPID, URIC #### [facility] [address] [place] [address] Dr. Sarmad Patino Basophils/100 WBC (Bld) 0.1 % Critically low 0.2-2.0 [facility] Comment on above: Performed By: #### D DAVIDSON, MG, PHOS, CMP, LIPID, URIC #### [facility] [address] [place] [address] Dr. Sarmad Patino EO # 0.1 103/ul Normal 0.0-0.7 [facility] Comment on above: Performed By: #### D DAVIDSON, MG, PHOS, CMP, LIPID, URIC #### [facility] [address] [place] [address] Dr. Sarmad Patino Eosinophils/100 WBC (Bld) 1.4 % Normal 0.9-7.0 [facility] Comment on above: Performed By: #### D DAVIDSON, MG, PHOS, CMP, LIPID, URIC #### [facility] [address] [place] [address] Dr. Sarmad Patino Erythrocyte distribution width (RBC) [Ratio] 13.6 % Normal 11.0-15.0 [facility] Comment on above: Performed By: #### D DAVIDSON, MG, PHOS, CMP, LIPID, URIC #### [facility] [address] [place] [address] Dr. Sarmad Patino Hematocrit (Bld) [Volume fraction] 47.5 % Normal 36.0-48.0 [facility] Comment on above: Performed By: #### D DAVIDSON, MG, PHOS, CMP, LIPID, URIC #### [facility] [address] [place] [address] Dr. Sarmad Patino Hemoglobin (Bld) [Mass/Vol] 15.7 g/dL Normal 12.0-16.0 [facility] Comment on above: Performed By: #### D DAVIDSON, MG, PHOS, CMP, LIPID, URIC #### [facility] [address] [place] [address] Dr. Sarmad Patino IG # 0.04 10e3/ul Critically high 0.00-0.03 [facility] Comment on above: Performed By: #### D DAVIDSON, MG, PHOS, CMP, LIPID, URIC #### [facility] [address] [place] [address] Dr. Sarmad Patino IG % 0.5 % Normal 0.0-0.5 [facility] Comment on above: Performed By: #### D DAVIDSON, MG, PHOS, CMP, LIPID, URIC #### [facility] [address] [place] [address] Dr. Sarmad Patino LYMPH # 1.3 103/ul Normal 1.2-3.8 [facility] Comment on above: Performed By: #### D DAVIDSON, MG, PHOS, CMP, LIPID, URIC #### [facility] [address] [place] [address] Dr. Sarmad Patino Lymphocytes/100 WBC (Bld) 15.4 % Critically low 20.5-60.0 [facility] Comment on above: Performed By: #### D DAVIDSON, MG, PHOS, CMP, LIPID, URIC #### [facility] [address] [place] [address] Dr. Sarmad Patino MANUAL DIFF REQ NO Normal [facility] Comment on above: Performed By: #### D DAVIDSON, MG, PHOS, CMP, LIPID, URIC #### [facility] [address] [place] [address] Dr. Sarmad Patino MCH (RBC) [Entitic mass] 29.1 pg Normal 26.7-34.0 [facility] Comment on above: Performed By: #### D DAVIDSON, MG, PHOS, CMP, LIPID, URIC #### [facility] [address] [place] [address] Dr. Sarmad Patino MCHC (RBC) [Mass/Vol] 33.1 g/dL Normal 29.9-35.2 [facility] Comment on above: Performed By: #### D DAVIDSON, MG, PHOS, CMP, LIPID, URIC #### [facility] [address] [place] [address] Dr. Sarmad Patino MCV (RBC) [Entitic vol] 88.0 fL Normal 81.0-99.0 [facility] Comment on above: Performed By: #### D DAVIDSON, MG, PHOS, CMP, LIPID, URIC #### [facility] [address] [place] [address] Dr. Sarmad Patino MONO # 0.9 103/ul Critically high 0.3-0.8 [facility] Comment on above: Performed By: #### D DAVIDSON, MG, PHOS, CMP, LIPID, URIC #### [facility] [address] [place] [address] Dr. Sarmad Patino Monocytes/100 WBC (Bld) 10.2 % Normal 1.7-12.0 [facility] Comment on above: Performed By: #### D DAVIDSON, MG, PHOS, CMP, LIPID, URIC #### [facility] [address] [place] [address] Dr. Sarmad Patino NEUT # 6.1 103/ul Normal 1.4-6.5 [facility] Comment on above: Performed By: #### D DAVIDSON, MG, PHOS, CMP, LIPID, URIC #### [facility] [address] [place] [address] Dr. Sarmad Patino Neutrophils/100 WBC (Bld) 72.4 % Normal 43.0-75.0 [facility] Comment on above: Performed By: #### D DAVIDSON, MG, PHOS, CMP, LIPID, URIC #### [facility] [address] [address] [address] Sarmad Patino Platelet mean volume (Bld) [Entitic vol] 11.1 fL Normal 9.5-13.5 [facility] Comment on above: Performed By: #### D DAVIDSON, MG, PHOS, CMP, LIPID, URIC #### [facility] [address] [address] [address] Sarmad Patino PLT 213 103/ul Normal 150-450 [facility] Comment on above: Performed By: #### D DAVIDSON, MG, PHOS, CMP, LIPID, URIC #### [facility] [address] [address] [address] Sarmad Patino RBC 5.40 106/ul Normal 4.20-5.40 [facility] Comment on above: Performed By: #### D DAVIDSON, MG, PHOS, CMP, LIPID, URIC #### [facility] [address] [address] [address] Sarmad Patino WBC 8.4 103/ul Normal 4.0-11.0 [facility] Comment on above: Performed By: #### D DAVIDSON, MG, PHOS, CMP, LIPID, URIC #### [facility] [address] [address] [address] Sarmad Patino LIPID PROFILEon 10-08-2021 CHOL-HDL RATIO NORM SEE BELOW Normal [facility] Comment on above: Result Comment: 3.3 - 4.4 LOW RISK 4.4 - 7.1 AVERAGE RISK 7.1 - 11.0 MODERATE RISK >11.0 HIGH RISK Performed By: #### D DAVIDSON, MG, PHOS, CMP, LIPID, URIC #### [facility] [address] [address] [address] Sarmad Patino Cholesterol [Mass/Vol] 155 mg/dL Normal <=200 [facility] Comment on above: Performed By: #### D DAVIDSON, MG, PHOS, CMP, LIPID, URIC #### [facility] [address] [address] [address] Sarmad Patino Cholesterol in HDL [Mass/Vol] 49 mg/dL Normal 40-60 [facility] Comment on above: Performed By: #### D DAVIDSON, MG, PHOS, CMP, LIPID, URIC #### [facility] [address] [address] [address] Sarmad Patino Cholesterol in LDL [Mass/Vol] 73.8 mg/dL Normal [facility] Comment on above: Performed By: #### D DAVIDSON, MG, PHOS, CMP, LIPID, URIC #### [facility] [address] [address] [address] Sarmad Patino Cholesterol.total/Cho lesterol in HDL [Mass ratio] 3.2 {ratio} Normal [facility] Comment on above: Performed By: #### D DAVIDSON, MG, PHOS, CMP, LIPID, URIC #### [facility] [address] [address] [address] Sarmad Patino HDL NORMAL > or = 60 mg/dl - LO W CARDIOVASCULAR RISK <40 mg/dl - HIGH CARDIOVASCULAR RISK Normal [facility] Comment on above: Performed By: #### D DAVIDSON, MG, PHOS, CMP, LIPID, URIC #### [facility] [address] [address] [address] Sarmad Patino LDL CALC NORMAL SEE BELOW Normal [facility] Comment on above: Result Comment: <100 mg/dl OPTIMAL 100 - 129 mg/dl NEAR OR ABOVE OPTIMAL 130 - 159 mg/dl BORDERLINE HIGH 160 - 189 mg/dl HIGH >190 mg/dl VERY HIGH Performed By: #### D DAVIDSON, MG, PHOS, CMP, LIPID, URIC #### [facility] [address] [address] [address] Sarmad Patino Triglyceride [Mass/Vol] 161 mg/dL Critically high <=150 [facility] Comment on above: Performed By: #### D DAVIDSON, MG, PHOS, CMP, LIPID, URIC #### [facility] [address] [address] [address] Sarmad Patino VLDL CALC 32.2 mg/dL Normal [facility] Comment on above: Performed By: #### D DAVIDSON, MG, PHOS, CMP, LIPID, URIC #### [facility] [address] [place] [address] Dr. Sarmad Patino MAGNESIUMon 10-08-2021 Magnesium [Mass/Vol] 1.6 mg/dL Critically low 1.8-2.4 [facility] Comment on above: Performed By: #### U JUVE, LIPID, MG, CMP, DBIL, PHOS #### [facility] [address] [place] [address] Dr. Sarmad Patino PHOSPHORUSon 10-08-2021 Phosphate [Mass/Vol] 3.5 mg/dL Normal 2.6-4.7 [facility] Comment on above: Performed By: #### U JUVE, LIPID, MG, CMP, DBIL, PHOS #### [facility] [address] [place] [address] Dr. Sarmad Patino PROF 14(COMP METB)on 022 Albumin [Mass/Vol] 3.6 g/dL Normal 3.4-5.0 [facility] Comment on above: Performed By: #### D DAVIDSON, MG, PHOS, CMP, LIPID, URIC #### [facility] [address] [place] [address] Dr. Sarmad Patino Albumin/Globulin [Mass ratio] 0.9 {ratio} Normal [facility] Comment on above: Performed By: #### D DAVIDSON, MG, PHOS, CMP, LIPID, URIC #### [facility] [address] [place] [address] Dr. Sarmad Patino ALP [Catalytic activity/Vol] 150 U/L Critically high 46-116 [facility] Comment on above: Performed By: #### D DAVIDSON, MG, PHOS, CMP, LIPID, URIC #### [facility] [address] [place] [address] Dr. Sarmad Patino ALT [Catalytic activity/Vol] 21 U/L Normal 14-59 [facility] Comment on above: Performed By: #### D DAVIDSON, MG, PHOS, CMP, LIPID, URIC #### [facility] [address] [address] [address] Sarmad Patino Anion gap [Moles/Vol] 14.0 mmol/L Normal [facility] Comment on above: Performed By: #### D DAVIDSON, MG, PHOS, CMP, LIPID, URIC #### [facility] [address] [place] [address] Dr. Sarmad Patino AST [Catalytic activity/Vol] 13 U/L Critically low 15-37 [facility] Comment on above: Performed By: #### D DAVIDSON, MG, PHOS, CMP, LIPID, URIC #### [facility] [address] [address] [address] Sarmad Patino Bilirubin [Mass/Vol] 0.5 mg/dL Normal 0.2-1.0 [facility] Comment on above: Performed By: #### D DAVIDSON, MG, PHOS, CMP, LIPID, URIC #### [facility] [address] [place] [address] Dr. Sarmad Patino Calcium [Mass/Vol] 9.8 mg/dL Normal 8.5-10.1 [facility] Comment on above: Performed By: #### D DAVIDSON, MG, PHOS, CMP, LIPID, URIC #### [facility] [address] [place] [address] Dr. Sarmad Patino Chloride [Moles/Vol] 105 mmol/L Normal 98-107 [facility] Comment on above: Performed By: #### D DAVIDSON, MG, PHOS, CMP, LIPID, URIC #### [facility] [address] [place] [address] Dr. Sarmad Patino CO2 [Moles/Vol] 25.9 mmol/L Normal 21.0-32.0 [facility] Comment on above: Performed By: #### D DAVIDSON, MG, PHOS, CMP, LIPID, URIC #### [facility] [address] [place] [address] Dr. Sarmad Patino Creatinine [Mass/Vol] 0.81 mg/dL Normal 0.55-1.02 [facility] Comment on above: Performed By: #### D DAVIDSON, MG, PHOS, CMP, LIPID, URIC #### [facility] [address] [address] [address] Sarmad Patino EGFR-AF IRANIAN >60 Normal >=60 [facility] Comment on above: Performed By: #### D DAVIDSON, MG, PHOS, CMP, LIPID, URIC #### [facility] [address] [address] [address] Sarmad Patino EGFR-NON AF IRANIAN >60 Normal >=60 [facility] Comment on above: Performed By: #### D DAVIDSON, MG, PHOS, CMP, LIPID, URIC #### [facility] [address] [address] [address] Sarmad Patino Globulin (S) [Mass/Vol] 3.8 g/dL Normal [facility] Comment on above: Performed By: #### D DAVIDSON, MG, PHOS, CMP, LIPID, URIC #### [facility] [address] [address] [address] Sarmad Patino Glucose [Mass/Vol] 101 mg/dL Normal 74-106 [facility] Comment on above: Performed By: #### D DAVIDSON, MG, PHOS, CMP, LIPID, URIC #### [facility] [address] [address] [address] Sarmad Patino Potassium [Moles/Vol] 3.9 mmol/L Normal 3.5-5.1 [facility] Comment on above: Performed By: #### D DAVIDSON, MG, PHOS, CMP, LIPID, URIC #### [facility] [address] [address] [address] Sarmad Patino Protein [Mass/Vol] 7.4 g/dL Normal 6.4-8.2 [facility] Comment on above: Performed By: #### D DAVIDSON, MG, PHOS, CMP, LIPID, URIC #### [facility] [address] [address] [address] Sarmad Patino Sodium [Moles/Vol] 141 mmol/L Normal 136-145 [facility] Comment on above: Performed By: #### D DAVIDSON, MG, PHOS, CMP, LIPID, URIC #### [facility] [address] [address] [address] Sarmad Patino Urea nitrogen [Mass/Vol] 18.0 mg/dL Normal 7.0-18.0 [facility] Comment on above: Performed By: #### D DAVIDSON, MG, PHOS, CMP, LIPID, URIC #### [facility] [address] [place] [address] Dr. Sarmad Patino Urea nitrogen/Creatinine [Mass ratio] 22.2 mg/mg Normal [facility] Comment on above: Performed By: #### D DAVIDSON, MG, PHOS, CMP, LIPID, URIC #### [facility] [address] [place] [address] Dr. Sarmad Patino URIC ACID SERUMon 10-08-2021 Urate [Mass/Vol] 4.7 mg/dL Normal 2.6-6.0 [facility] Comment on above: Performed By: #### D DAVIDSON, MG, PHOS, CMP, LIPID, URIC #### [facility] [address] [place] [address] Dr. Sarmad Patino EVEROLIMU, WHOLE BLOODon EVEROLIMUS 8.0 ng/mL Normal 3.0-8.0 [facility] Comment on above: Result Comment: Perf ormed by LC-MS/MS technology. Performed By: #### U JUVE, LIPID, MG, CMP, DBIL, PHOS #### [facility] [address] [place] [address] Dr. Sarmad Patino FK506 (TACROLIMUS) WHOLE BLO ODon 09-14-2021 Tacrolimus (FK506), Blood 9.3 ng/mL Normal 2.0-20.0 [facility] Comment on above: Result Comment: Trou gh (immediately following transplant) 15.0 . Trough (steady state, 2 weeks or more after transplant): 3.0 - 8.0 . Performed by LC-MS/MS technology. Performed By: #### U JUVE, LIPID, MG, CMP, DBIL, PHOS #### [facility] [address] [place] [address] Dr. Sarmad Patino BK VIRUS PCR QUANTon 022 BKV DNA QUANT PCR PLASMA Negative Normal Negative [facility] Comment on above: Result Comment: No B K DNA detected. . The linear range of the assay is 22 - 100,000,000 IU/mL. Performed By: #### D DAVIDSON, MG, PHOS, CMP, LIPID, URIC #### [facility] [address] [place] [address] Dr. Sarmad Patino Log10 BKV DNA Plasma Normal [facility] Comment on above: Performed By: #### D DAVIDSON, MG, PHOS, CMP, LIPID, URIC #### [facility] [address] [place] [address] Dr. Sarmad Patino BILIRUBIN CONJUGATED (DIRECT )on 09-10-2021 BILI, CONJUGATED 0.1 mg/dL Normal 0.0-0.2 [facility] Comment on above: Performed By: #### D DAVIDSON, MG, PHOS, CMP, LIPID, URIC #### [facility] [address] [place] [address] Dr. Sarmad Patino CBC AUTO DIFFon 09-10-2021 BASO # 0.0 103/ul Normal 0.0-0.1 [facility] Comment on above: Performed By: #### D DAVIDSON, MG, PHOS, CMP, LIPID, URIC #### [facility] [address] [place] [address] Dr. Sarmad Patino Basophils/100 WBC (Bld) 0.1 % Critically low 0.2-2.0 [facility] Comment on above: Performed By: #### D DAVIDSON, MG, PHOS, CMP, LIPID, URIC #### [facility] [address] [place] [address] Dr. Sarmad Patino EO # 0.2 103/ul Normal 0.0-0.7 [facility] Comment on above: Performed By: #### D DAVIDSON, MG, PHOS, CMP, LIPID, URIC #### [facility] [address] [place] [address] Dr. Sarmad Patino Eosinophils/100 WBC (Bld) 2.3 % Normal 0.9-7.0 [facility] Comment on above: Performed By: #### D DAVIDSON, MG, PHOS, CMP, LIPID, URIC #### [facility] [address] [place] [address] Dr. Sarmad Patino Erythrocyte distribution width (RBC) [Ratio] 13.6 % Normal 11.0-15.0 [facility] Comment on above: Performed By: #### D DAVIDSON, MG, PHOS, CMP, LIPID, URIC #### [facility] [address] [place] [address] Dr. Sarmad Patino Hematocrit (Bld) [Volume fraction] 45.1 % Normal 36.0-48.0 [facility] Comment on above: Performed By: #### D DAVIDSON, MG, PHOS, CMP, LIPID, URIC #### [facility] [address] [place] [address] Dr. Sarmad Patino Hemoglobin (Bld) [Mass/Vol] 14.7 g/dL Normal 12.0-16.0 [facility] Comment on above: Performed By: #### D DAVIDSON, MG, PHOS, CMP, LIPID, URIC #### [facility] [address] [place] [address] Dr. Sarmad Patino IG # 0.03 10e3/ul Normal 0.00-0.03 [facility] Comment on above: Performed By: #### D DAVIDSON, MG, PHOS, CMP, LIPID, URIC #### [facility] [address] [place] [address] Dr. Sarmad Patino IG % 0.4 % Normal 0.0-0.5 [facility] Comment on above: Performed By: #### D DAVIDSON, MG, PHOS, CMP, LIPID, URIC #### [facility] [address] [place] [address] Dr. Sarmad Patino LYMPH # 1.3 103/ul Normal 1.2-3.8 [facility] Comment on above: Performed By: #### D DAVIDSON, MG, PHOS, CMP, LIPID, URIC #### [facility] [address] [place] [address] Dr. Sarmad Patino Lymphocytes/100 WBC (Bld) 18.9 % Critically low 20.5-60.0 [facility] Comment on above: Performed By: #### D DAVIDSON, MG, PHOS, CMP, LIPID, URIC #### [facility] [address] [place] [address] Dr. Sarmad Patino MANUAL DIFF REQ NO Normal [facility] Comment on above: Performed By: #### D DAVIDSON, MG, PHOS, CMP, LIPID, URIC #### [facility] [address] [place] [address] Dr. Sarmad Patino MCH (RBC) [Entitic mass] 29.0 pg Normal 26.7-34.0 [facility] Comment on above: Performed By: #### D DAVIDSON, MG, PHOS, CMP, LIPID, URIC #### [facility] [address] [place] [address] Dr. Sarmad Patino MCHC (RBC) [Mass/Vol] 32.6 g/dL Normal 29.9-35.2 [facility] Comment on above: Performed By: #### D DAVIDSON, MG, PHOS, CMP, LIPID, URIC #### [facility] [address] [place] [address] Dr. Sarmad Patino MCV (RBC) [Entitic vol] 89.0 fL Normal 81.0-99.0 [facility] Comment on above: Performed By: #### D DAVIDSON, MG, PHOS, CMP, LIPID, URIC #### [facility] [address] [place] [address] Dr. Sarmad Patino MONO # 0.8 103/ul Normal 0.3-0.8 [facility] Comment on above: Performed By: #### D DAVIDSON, MG, PHOS, CMP, LIPID, URIC #### [facility] [address] [place] [address] Dr. Sarmad Patino Monocytes/100 WBC (Bld) 11.9 % Normal 1.7-12.0 [facility] Comment on above: Performed By: #### D DAVIDSON, MG, PHOS, CMP, LIPID, URIC #### [facility] [address] [place] [address] Dr. Sarmad Patino NEUT # 4.6 103/ul Normal 1.4-6.5 [facility] Comment on above: Performed By: #### D DAVIDSON, MG, PHOS, CMP, LIPID, URIC #### [facility] [address] [address] [address] Sarmad Patino Neutrophils/100 WBC (Bld) 66.4 % Normal 43.0-75.0 [facility] Comment on above: Performed By: #### D DAVIDSON, MG, PHOS, CMP, LIPID, URIC #### [facility] [address] [address] [address] Sarmad Patino Platelet mean volume (Bld) [Entitic vol] 10.6 fL Normal 9.5-13.5 [facility] Comment on above: Performed By: #### D DAVIDSON, MG, PHOS, CMP, LIPID, URIC #### [facility] [address] [address] [address] Sarmad Patino PLT 233 103/ul Normal 150-450 [facility] Comment on above: Performed By: #### D DAVIDSON, MG, PHOS, CMP, LIPID, URIC #### [facility] [address] [address] [address] Sarmad Patino RBC 5.07 106/ul Normal 4.20-5.40 [facility] Comment on above: Performed By: #### D DAVIDSON, MG, PHOS, CMP, LIPID, URIC #### [facility] [address] [address] [address] Sarmad Patino WBC 6.9 103/ul Normal 4.0-11.0 [facility] Comment on above: Performed By: #### D DAVIDSON, MG, PHOS, CMP, LIPID, URIC #### [facility] [address] [place] [address] Dr. Sarmad Patino GLYCOHEMOGLOBIN A1Con 2021 ADA RECOMMENDATION SEE BELOW Normal [facility] Comment on above: Result Comment: ADA RECOMMENDED LIMIT 4.0 - 6.0 ADA THERAPEUTIC TARGET < 7.0 ACTION SUGGESTED > 7.0 Performed By: #### D DAVIDSON, MG, PHOS, CMP, LIPID, URIC #### [facility] [address] [place] [address] Dr. Sarmad Patino Glucose [Mass/Vol] 120 mg/dL Normal [facility] Comment on above: Performed By: #### D DAVIDSON, MG, PHOS, CMP, LIPID, URIC #### [facility] [address] [address] [address] Sarmad Patino HbA1c (Bld) [Mass fraction] 5.8 % Normal 4.5-6.2 [facility] Comment on above: Performed By: #### D DAVIDSON, MG, PHOS, CMP, LIPID, URIC #### [facility] [address] [address] [address] Sarmad Patino LIPID PROFILEon 09-10-2021 CHOL-HDL RATIO NORM SEE BELOW Normal [facility] Comment on above: Result Comment: 3.3 - 4.4 LOW RISK 4.4 - 7.1 AVERAGE RISK 7.1 - 11.0 MODERATE RISK >11.0 HIGH RISK Performed By: #### D DAVIDSON, MG, PHOS, CMP, LIPID, URIC #### [facility] [address] [address] [address] Sarmad Patino Cholesterol [Mass/Vol] 150 mg/dL Normal <=200 [facility] Comment on above: Performed By: #### D DAVIDSON, MG, PHOS, CMP, LIPID, URIC #### [facility] [address] [address] [address] Sarmad Patino Cholesterol in HDL [Mass/Vol] 47 mg/dL Normal 40-60 [facility] Comment on above: Performed By: #### D DAVIDSON, MG, PHOS, CMP, LIPID, URIC #### [facility] [address] [address] [address] Sarmad Patino Cholesterol in LDL [Mass/Vol] 78.4 mg/dL Normal [facility] Comment on above: Performed By: #### D DAVIDSON, MG, PHOS, CMP, LIPID, URIC #### [facility] [address] [place] [address] Dr. Sarmad Patino Cholesterol.total/Cho lesterol in HDL [Mass ratio] 3.2 {ratio} Normal [facility] Comment on above: Performed By: #### D DAVIDSON, MG, PHOS, CMP, LIPID, URIC #### [facility] [address] [address] [address] Sarmad Patino HDL NORMAL > or = 60 mg/dl - LO W CARDIOVASCULAR RISK <40 mg/dl - HIGH CARDIOVASCULAR RISK Normal [facility] Comment on above: Performed By: #### D DAVIDSON, MG, PHOS, CMP, LIPID, URIC #### [facility] [address] [address] [address] Sarmad Patino LDL CALC NORMAL SEE BELOW Normal [facility] Comment on above: Result Comment: <100 mg/dl OPTIMAL 100 - 129 mg/dl NEAR OR ABOVE OPTIMAL 130 - 159 mg/dl BORDERLINE HIGH 160 - 189 mg/dl HIGH >190 mg/dl VERY HIGH Performed By: #### D DAVIDSON, MG, PHOS, CMP, LIPID, URIC #### [facility] [address] [address] [address] Sarmad Patino Triglyceride [Mass/Vol] 123 mg/dL Normal <=150 [facility] Comment on above: Performed By: #### D DAVIDSON, MG, PHOS, CMP, LIPID, URIC #### [facility] [address] [place] [address] Dr. Sarmad Patino VLDL CALC 24.6 mg/dL Normal [facility] Comment on above: Performed By: #### D DAVIDSON, MG, PHOS, CMP, LIPID, URIC #### [facility] [address] [place] [address] Dr. Sarmad Patino MAGNESIUMon 09-10-2021 Magnesium [Mass/Vol] 1.5 mg/dL Critically low 1.8-2.4 [facility] Comment on above: Performed By: #### D DAVIDSON, MG, PHOS, CMP, LIPID, URIC #### [facility] [address] [address] [address] Sarmad Patino PHOSPHORUSon 09-10-2021 Phosphate [Mass/Vol] 3.8 mg/dL Normal 2.6-4.7 [facility] Comment on above: Performed By: #### D DAVIDSON, MG, PHOS, CMP, LIPID, URIC #### [facility] [address] [address] [address] Sarmad Patino PROF 14(COMP METB)on 022 Albumin [Mass/Vol] 3.4 g/dL Normal 3.4-5.0 [facility] Comment on above: Performed By: #### D DAVIDSON, MG, PHOS, CMP, LIPID, URIC #### [facility] [address] [place] [address] Dr. Sarmad Patino Albumin/Globulin [Mass ratio] 0.9 {ratio} Normal [facility] Comment on above: Performed By: #### D DAVIDSON, MG, PHOS, CMP, LIPID, URIC #### [facility] [address] [address] [address] Sarmad Patino ALP [Catalytic activity/Vol] 143 U/L Critically high 46-116 [facility] Comment on above: Performed By: #### D DAVIDSON, MG, PHOS, CMP, LIPID, URIC #### [facility] [address] [place] [address] Dr. Sarmad Patino ALT [Catalytic activity/Vol] 19 U/L Normal 14-59 [facility] Comment on above: Performed By: #### D DAVIDSON, MG, PHOS, CMP, LIPID, URIC #### [facility] [address] [place] [address] Dr. Sarmad Patino Anion gap [Moles/Vol] 13.4 mmol/L Normal [facility] Comment on above: Performed By: #### D DAVIDSON, MG, PHOS, CMP, LIPID, URIC #### [facility] [address] [address] [address] Sarmad Patino AST [Catalytic activity/Vol] 24 U/L Normal 15-37 [facility] Comment on above: Performed By: #### D DAVIDSON, MG, PHOS, CMP, LIPID, URIC #### [facility] [address] [address] [address] Sarmad Patino Bilirubin [Mass/Vol] 0.4 mg/dL Normal 0.2-1.0 [facility] Comment on above: Performed By: #### D DAVIDSON, MG, PHOS, CMP, LIPID, URIC #### [facility] [address] [place] [address] Dr. Sarmad Patino Calcium [Mass/Vol] 9.3 mg/dL Normal 8.5-10.1 [facility] Comment on above: Performed By: #### D DAVIDSON, MG, PHOS, CMP, LIPID, URIC #### [facility] [address] [address] [address] Sarmad Patino Chloride [Moles/Vol] 106 mmol/L Normal 98-107 [facility] Comment on above: Performed By: #### D DAVIDSON, MG, PHOS, CMP, LIPID, URIC #### [facility] [address] [address] [address] Sarmad Patino CO2 [Moles/Vol] 25.5 mmol/L Normal 21.0-32.0 [facility] Comment on above: Performed By: #### D DAVIDSON, MG, PHOS, CMP, LIPID, URIC #### [facility] [address] [address] [address] Sarmad Patino Creatinine [Mass/Vol] 0.85 mg/dL Normal 0.55-1.02 [facility] Comment on above: Performed By: #### D DAVIDSON, MG, PHOS, CMP, LIPID, URIC #### [facility] [address] [address] [address] Sarmad Patino EGFR-AF IRANIAN >60 Normal >=60 [facility] Comment on above: Performed By: #### D DAVIDSON, MG, PHOS, CMP, LIPID, URIC #### [facility] [address] [address] [address] Sarmad Patino EGFR-NON AF IRANIAN >60 Normal >=60 [facility] Comment on above: Performed By: #### D DAVIDSON, MG, PHOS, CMP, LIPID, URIC #### [facility] [address] [address] [address] Sarmad Patino Globulin (S) [Mass/Vol] 3.8 g/dL Normal [facility] Comment on above: Performed By: #### D DAVIDSON, MG, PHOS, CMP, LIPID, URIC #### [facility] [address] [address] [address] Sarmad Patino Glucose [Mass/Vol] 100 mg/dL Normal 74-106 [facility] Comment on above: Performed By: #### D DAVIDSON, MG, PHOS, CMP, LIPID, URIC #### [facility] [address] [address] [address] Sarmad Patino Potassium [Moles/Vol] 3.9 mmol/L Normal 3.5-5.1 [facility] Comment on above: Performed By: #### D DAVIDSON, MG, PHOS, CMP, LIPID, URIC #### [facility] [address] [address] [address] Sarmda Patino Protein [Mass/Vol] 7.2 g/dL Normal 6.4-8.2 [facility] Comment on above: Performed By: #### D DAVIDSON, MG, PHOS, CMP, LIPID, URIC #### [facility] [address] [place] [address] Dr. Sarmad Patino Sodium [Moles/Vol] 141 mmol/L Normal 136-145 [facility] Comment on above: Performed By: #### D DAVIDSON, MG, PHOS, CMP, LIPID, URIC #### [facility] [address] [address] [address] Sarmad Patino Urea nitrogen [Mass/Vol] 16.0 mg/dL Normal 7.0-18.0 [facility] Comment on above: Performed By: #### D DAVIDSON, MG, PHOS, CMP, LIPID, URIC #### [facility] [address] [place] [address] Dr. Sarmad Patino Urea nitrogen/Creatinine [Mass ratio] 18.8 mg/mg Normal [facility] Comment on above: Performed By: #### D DAVIDSON, MG, PHOS, CMP, LIPID, URIC #### [facility] [address] [address] [address] Sarmad Patino URIC ACID SERUMon 09-10-2021 Urate [Mass/Vol] 4.8 mg/dL Normal 2.6-6.0 [facility] Comment on above: Performed By: #### D DAVIDSON, MG, PHOS, CMP, LIPID, URIC #### [facility] [address] [place] [address] Dr. Sarmad Patino Urinalysis - AUTOMATEDon Appearance (U) cloudy [employer] Other Bilirubin Ql (U) Negative [employer] Other Color (U) pale yellow [facility] Other Glucose Ql (U) Negative [employer] Other Hemoglobin Ql (U) moderate [employer] Other Ketones Ql (U) Negative [employer] Other Leukocyte esterase Test strip Ql (U) moderate [facility] Other Nitrite Ql (U) Negative [employer] Other pH (U) 7.0 [pH] [facility] Other Protein Ql (U) Negative [employer] Other Specific gravity (U) [Rel density] 1.010 [facility] Other Urobilinogen (U) [Mass/Vol] 0.2 mg/dL [facility] Other Urinalysis - AUTOMATED [facility] Other Urine Cultureon 08-14-2021 Urine Culture 100,000 [facility] Other Urine Culture <16 Susceptible [employer] Other Urine Culture >16 Resistant [facility] Other Urine Culture <4 Susceptible [employer] Other Urine Culture <2 Susceptible [employer] Other Urine Culture <1 Susceptible [employer] Other Urine Culture <0.5 Susceptible [employer] Other Urine Culture <32 Susceptible [employer] Other Urine Culture </38 Susceptible [employer] Other Bacteria identified Cx Nom (U) Reason for Exam Dysuria Urine ORGANISM: Klebsiella pneumoniae (O:KLEPNE) [place] Count 100,000 Aerobic SHYLA Charge (NUC86) ---- [...] RESISTANT TO ALL B-LACTAM DRUGS. PERFORMED BY: [place] [address] PATHOLOGIST [employer]UST[employer] LOVELY COLE M.D. Normal [facility] Comment on above: Performed By: #### C UU #### [address] *URINE CULTUREon 12-31-2017 Bacteria identified in Urine by Culture Clinical Report: (D) Specimen: URINE Collected: 12/31/2017 13:40 Status: Final Last Updated: 01/04/2018 12:38 ISO (Final) Diphtheroids >100,000 Cfu/Ml 2 Morphologies ISO (Final) Aerococcus urinae 50,000 - 100,000 Cfu/mL Result changed by RFISCHB on 01/04/2018 12:38. The previous result was: ISO (Prelim) Normal [facility] Comment on above: Performed By: #### 4 1000, 28320, 57839, 52990, 77038, 88931 ####[facility] CBC W/DIFFon 12-25-2017 ABS BASOPHILS 0.0 10*3/uL Normal 0.0-0.2 [facility] Comment on above: Performed By: #### 5 0103 ####[facility] ABS IMM GRANS 0.0 10*3/uL Normal 0.0-0.2 [facility] Comment on above: Performed By: #### 5 0103 ####[facility] ABS NEUTROPHILS 5.0 10*3/uL Normal 1.6-7.[address] [facility] Comment on above: Performed By: #### 5 0103 ####[facility] Basophils Auto #/vol (Bld) 0.1 % Normal 0.0-1.[address] [facility] Comment on above: Performed By: #### 5 0103 ####[facility] Eosinophils Auto #/vol (Bld) 0.1 10*3/uL Normal 0.0-0.[address] [facility] Comment on above: Performed By: #### 5 0103 ####[facility] Eosinophils/100 WBC Auto (Bld) 1.6 % Normal 0.0-6.[address] [facility] Comment on above: Performed By: #### 5 0103 ####[facility] Erythrocyte distribution width Auto Ratio (RBC) 14.6 % Normal 11.5-15.[address] [facility] Comment on above: Performed By: #### 0103 ####[facility] Hematocrit Auto Volume Fraction (Bld) 44.9 % Normal 36.0-45.0 [facility] Comment on above: Performed By: #### 5 3 ####[address] Hemoglobin mass conc (Bld) 14.9 g/dL Normal 12.0-15.[address] [facility] Comment on above: Performed By: #### 5 0103 ####[address] IMMATURE GRANS 0.4 % Normal 0.0-1.0 [facility] Comment on above: Performed By: #### 5 0103 ####[address] Lymphocytes Auto #/vol (Bld) 1.0 10*3/uL Low 1.2-4.[address] [facility] Comment on above: Performed By: #### 5 3 ####[address] Lymphocytes/100 WBC Auto (Bld) 14.9 % Low 20.0-45.[address] [facility] Comment on above: Performed By: #### 5 3 ####[address] MCH Auto Entitic mass (RBC) 28.8 pg Normal 27.0-33.[address] [facility] Comment on above: Performed By: #### 102 ####[facility]3000 [facility].[address] MCHC Auto mass conc (RBC) 33.2 g/dL Normal 32.0-35.[address] [facility] Comment on above: Performed By: #### 102 ####[facility].[address] MCV Auto Entitic volume (RBC) 86.7 fL Normal 82.0-98.[address] [facility] Comment on above: Performed By: #### 102 ####[facility]3000 [facility].[address] Monocytes Auto #/vol (Bld) 0.7 10*3/uL Normal 0.1-1.[address] [facility] Comment on above: Performed By: #### 102 ####[facility]3000 [facility].[address] MONOS 10.6 % Normal 5.0-12.[address] [facility] Comment on above: Performed By: #### 102 ####[facility] Neutrophils/100 WBC Auto (Bld) 72.4 % High 40.0-72.[address] [facility] Comment on above: Performed By: #### 102 ####[facility]3000 [facility].[address] Nucleated RBC/100 WBC Ratio (Bld) 0 % Normal 0-[address] [facility] Comment on above: Performed By: #### 102 ####[facility] PLAT CNT 203 10*3/uL Normal 150-400 [facility] Comment on above: Performed By: #### 102 ####[facility] RBC Auto #/vol (Bld) 5.18 10*6/uL High 3.80-5.[address] [facility] Comment on above: Performed By: #### 5 0103 ####[facility] [place] [address], [facility] WBC Auto #/vol (Bld) 6.90 10*3/uL Normal 4.00-10.[address] [facility] Comment on above: Performed By: #### 5 0103 ####[place] [address] [facility] COMP METABOLIC PANELon 12-25 Albumin mass conc 4.3 g/dL Normal 3.5-5.7 [facility] Comment on above: Performed By: #### 4 1000, 47560, 36340, 45459, 45556, 22545 ####[facility]3000 [facility].[address] ALKALINE PHOSPH 118 IU/L High 34-104 [facility] Comment on above: Performed By: #### 4 1000, 56148, 29403, 37042, 25697, 78497 ####[place] [address] [facility].[address] ALT enzyme act/vol 11 U/L Normal 7-52 [facility] Comment on above: Performed By: #### 4 1000, 82204, 05449, 64562, 94582, 72186 ####[facility] AST enzyme act/vol 17 U/L Normal 13-39 [facility] Comment on above: Performed By: #### 4 1000, 57837, 56022, 00595, 85637, 15068 ####[facility] [place] [address], [facility] Bilirubin mass conc 0.4 mg/dL Normal 0.3-1.0 The [facility] Comment on above: Performed By: #### 4 1000, 98672, 81734, 96636, 84576, 01814 ####[facility] [place] [address], [facility] Calcium mass conc 9.8 mg/dL Normal 8.6-10.3 [facility] Comment on above: Performed By: #### 4 1000, 30677, 60779, 22028, 53382, 45591 ####[facility] [place] [address], [facility] Chloride molar conc 104 mmol/L Normal 98-107 [facility] Comment on above: Performed By: #### 4 1000, 44083, 23524, 85339, 84057, 28847 ####[facility] [place] [address], [place] CO2 molar conc 27 mmol/L Normal 21-31 [facility] Comment on above: Performed By: #### 4 1000, 53665, 52646, 12416, 36465, 37616 ####[facility] [place] [address], [facility] Creatinine mass conc 0.76 mg/dL Normal 0.60-1.[address] [facility] Comment on above: Performed By: #### 4 1000, 96322, 72474, 42065, 34132, 12987 ####[facility] [place] [address], [facility] GFR/1.73 sq M predicted among blacks MDRD vol rate/area (S/P/Bld) mL/min/{1.73_m2} Normal >60 The [facility] Comment on above: Performed By: #### 4 1000, 36113, 05640, 86767, 37687, 20853 ####[facility] [place] [address], [facility] GFR/1.73 sq M predicted among non-blacks MDRD vol rate/area (S/P/Bld) mL/min/{1.73_m2} Normal >60 The [facility] Comment on above: Performed By: #### 4 1000, 05721, 10456, 86746, 17515, 78057 ####[facility] [place] [address], [facility] Glucose mass conc 94 mg/dL Normal 70-100 The [facility] Comment on above: Performed By: #### 4 1000, 86775, 48260, 25237, 85369, 62757 ####[facility] [place] [address], [facility] Potassium molar conc 3.9 mmol/L Normal 3.5-5.[address] [facility] Comment on above: Performed By: #### 4 1000, 71975, 97284, 77390, 23580, 19183 ####[facility] [place] [address], [facility] Protein mass conc 7.2 g/dL Normal 6.0-8.3 [facility] Comment on above: Performed By: #### 4 1000, 55535, 94968, 23736, 71237, 49977 ####[facility] [place] [address], [facility] Sodium molar conc 140 mmol/L Normal 136-145 [facility] Comment on above: Performed By: #### 4 1000, 86298, 75922, 20570, 65324, 08713 ####[facility] [place] [address], [place] Urea nitrogen mass conc 15 mg/dL Normal 7-[address] [facility] Comment on above: Performed By: #### 4 1000, 27367, 55688, 72560, 27699, 54536 ####[facility] [place] [address], [facility] DIRECT BILIon 12-25-2017 Bilirubin.direct mass conc 0.1 mg/dL Normal 0.0-0.[address] [facility] Comment on above: Performed By: #### 4 1000, 21440, 94341, 80050, 87506, 60150 ####[facility] EVEROLIMUS 59137xz 8 EVEROLIMUS 4.7 ng/mL Normal The [facility] Comment on above: Result Comment: Ther [...] the transplantcenter.Test developed and characteristics determined by [facility]. See Compliance Statement B: Lys[employer]/CSPerformed by [employer],[address] [place] [address] [employer]ok[employer], Leonid Antonio MD - Lab. Director LIPID PROFILEon 12-25-2017 Cholesterol in HDL mass conc 51 mg/dL Normal 23-[address] [facility] Comment on above: Result Comment: Slig ht variation in normal range could be due to gender and/or age.HDL CHOLESTEROL REFERENCE RANGE:20 years and older Cardiovascular Risk> or =60 mg/dL [id number] TO 59 mg/dL Low Risk<40 mg/dL High Risk Performed By: #### 4 5506, 71266, 89577, 74721, 16363, 68065 ####[facility] [place] [address], [place] Cholesterol in LDL mass conc 58 mg/dL Normal 0-[address] [facility] Comment on above: Result Comment: LDL IS A CALCULATIONLDL IS ONLY VALID IF THE TRIG IS LESS THAN 400. Performed By: #### 4 5506, 58295, 56267, 27385, 49524, 57145 ####[facility] [place] [address], [facility] Cholesterol mass conc 122 mg/dL Normal 120-[address] [facility] Comment on above: Result Comment: CHOL ESTEROL REFERENCE RANGE:20 YEARS AND OLDER CARDIOVASCULAR RISKLess than 200 mg/dl Low Rtha350 to 239 mg/dl Borderline [id number] mg/dl and greater High Risk Performed By: #### 4 5506, 53716, 02763, 42502, 55305, 12916 ####[facility] [place] [address], [facility] Cholesterol.total/Cho lesterol in HDL mass ratio 2.4 {ratio} Normal .0-4.[address] [facility] Comment on above: Performed By: #### 4 5506, 23416, 34613, 88901, 80409, 97156 ####[facility] [place] [address], [place] NON-HDL CHOLESTEROL 71 mg/dL Normal [facility] Comment on above: Performed By: #### 4 5506, 18341, 35220, 23303, 57700, 91024 ####[facility] [place] [address], [place] Triglyceride mass conc 65 mg/dL Normal 40-[address] [facility] Comment on above: Result Comment: TRIG LYCERIDE REFERENCE RANGE:20 YEARS AND OLDER CARDIOVASCULAR RISKLESS THAN 150 mg/dl LOW [id number] TO 199 mg/dl BORDERLINE SEQR682 mg/dl AND GREATER HIGH RISK Performed By: #### 4 5506, 20323, 72991, 37537, 11725, 50962 ####[facility] VLDL CHOL 13 mg/dL Normal 0-[address] [facility] Comment on above: Performed By: #### 4 5506, 49332, 56651, 65681, 51566, 72448 ####[facility] MAGNESIUM BLOODon 12-25-2017 Magnesium mass conc 1.8 mg/dL Low 1.9-2.7 [facility] Comment on above: Performed By: #### 4 1000, 16081, 39018, 00643, 16761, 72488 ####[facility] PHOSPHORUS BLOODon 8 Phosphate mass conc 3.4 mg/dL Normal 2.5-5.0 [facility] Comment on above: Performed By: #### 4 5506, 71026, 37587, 78221, 19308, 57802 ####[facility] TACROLIMUSon 12-25-2017 Tacrolimus mass conc (Bld) 6.4 ng/mL Normal 5.0-20.[address] [facility] Comment on above: Result Comment: The [employer] Tacrolimus assay is a delayed one-step immunoassayfor the quantitative determination of tacrolimus in human whole bloodusing the chemiluminescent microparticle immunoassay (CMIA) technologywith flexible assay protocols, referred to as Chemiflex. Performed By: #### 4 1000, 33193, 14552, 97234, 53322, 66860 ####[facility] URIC ACID BLOODon 12-25-2017 Urate mass conc 4.7 mg/dL Normal 2.3-6.6 [facility] Comment on above: Performed By: #### 4 5506, 29165, 64759, 63715, 10924, 24023 ####[facility]3000 [facility].[address] CBC W/DIFFon 10-30-2017 ABS BASOPHILS 0.0 10*3/uL Normal 0.0-0.2 The [facility] Comment on above: Performed By: #### 4 6447, 09793 ####[facility] ABS IMM GRANS 0.0 10*3/uL Normal 0.0-0.2 [facility] Comment on above: Performed By: #### 4 6447, 21647 ####[facility] ABS NEUTROPHILS 4.9 10*3/uL Normal 1.6-7.[address] [facility] Comment on above: Performed By: #### 4 6447, 50480 ####[facility] Basophils Auto #/vol (Bld) 0.1 % Normal 0.0-1.[address] [facility] Comment on above: Performed By: #### 4 6447, 67093 ####[facility] Eosinophils Auto #/vol (Bld) 0.1 10*3/uL Normal 0.0-0.[address] [facility] Comment on above: Performed By: #### 4 6447, 08986 ####[place] [address] [facility].[address] Eosinophils/100 WBC Auto (Bld) 1.4 % Normal 0.0-6.[address] [facility] Comment on above: Performed By: #### 3 5610, 84373 ####[facility]3000 [facility].[address] Erythrocyte distribution width Auto Ratio (RBC) 14.6 % Normal 11.5-15.[address] [facility] Comment on above: Performed By: #### 4 5202, 93898 ####[facility]3000 [facility].[address] Hematocrit Auto Volume Fraction (Bld) 46.8 % High 36.0-45.0 [facility] Comment on above: Performed By: #### 4 9013, 79664 ####[facility]3000 [facility].[address] Hemoglobin mass conc (Bld) 15.1 g/dL High 12.0-15.[address] [facility] Comment on above: Performed By: #### 0 3951, 24174 ####[facility] IMMATURE GRANS 0.4 % Normal 0.0-1.0 [facility] Comment on above: Performed By: #### 3 8351, 61194 ####[facility]3000 [facility].[address] Lymphocytes Auto #/vol (Bld) 1.2 10*3/uL Normal 1.2-4.[address] [facility] Comment on above: Performed By: #### 4 9985, 46016 ####[facility]3000 [facility].[address] Lymphocytes/100 WBC Auto (Bld) 16.6 % Low 20.0-45.[address] [facility] Comment on above: Performed By: #### 1 4149, 50827 ####[facility]3000 [facility].[address] MCH Auto Entitic mass (RBC) 29.0 pg Normal 27.0-33.[address] [facility] Comment on above: Performed By: #### 4 5161, 90982 ####[facility] [facility].[address] MCHC Auto mass conc (RBC) 32.3 g/dL Normal 32.0-35.[address] [facility] Comment on above: Performed By: #### 4 4831, 34920 ####[facility] [facility].[address] MCV Auto Entitic volume (RBC) 89.8 fL Normal 82.0-98.[address] [facility] Comment on above: Performed By: #### 4 8837, 44204 ####[place] [address] [facility].[address] Monocytes Auto #/vol (Bld) 0.8 10*3/uL Normal 0.1-1.[address] [facility] Comment on above: Performed By: #### 4 1803, 71524 ####[facility]3000 [facility].[address] MONOS 11.9 % Normal 5.0-12.[address] [facility] Comment on above: Performed By: #### 4 2092, 31495 ####[facility] [facility].[address] Neutrophils/100 WBC Auto (Bld) 69.6 % Normal 40.0-72.[address] [facility] Comment on above: Performed By: #### 4 8386, 75786 ####[facility]3000 [facility].[address] Nucleated RBC/100 WBC Ratio (Bld) 0 % Normal 0-[address] [facility] Comment on above: Performed By: #### 2 3792, 17965 ####[facility] PLAT CNT 200 10*3/uL Normal 150-400 [facility] Comment on above: Performed By: #### 4 6447, 94312 ####[facility] RBC Auto #/vol (Bld) 5.21 10*6/uL High 3.80-5.[address] [facility] Comment on above: Performed By: #### 4 6447, 20803 ####[facility]3000 [facility].[address] WBC Auto #/vol (Bld) 7.04 10*3/uL Normal 4.00-10.[address] [facility] Comment on above: Performed By: #### 4 6447, 48399 ####[facility] COMP METABOLIC PANELon 10-30 Albumin mass conc 4.1 g/dL Normal 3.5-5.7 The [facility] Comment on above: Performed By: #### 4 6447, 89663 ####[facility]3000 [facility].[address] ALKALINE PHOSPH 114 IU/L High 34-104 [facility] Comment on above: Performed By: #### 4 6447, 36682 ####[facility]3000 [facility].[address] ALT enzyme act/vol 16 U/L Normal 7-52 [facility] Comment on above: Performed By: #### 4 6447, 04454 ####[facility]3000 [facility].[address] AST enzyme act/vol 18 U/L Normal 13-39 [facility] Comment on above: Performed By: #### 4 6447, 99722 ####[facility] [place] [address], [place] Bilirubin mass conc 0.4 mg/dL Normal 0.3-1.0 [facility] Comment on above: Performed By: #### 4 3541, 78339 ####[facility] [place] [address], [place] Calcium mass conc 9.7 mg/dL Normal 8.6-10.3 [facility] Comment on above: Performed By: #### 4 9529, 68938 ####[facility] [place] [address], [place] Chloride molar conc 105 mmol/L Normal 98-107 [facility] Comment on above: Performed By: #### 8 9738, 31622 ####[facility] [place] [address], [place] CO2 molar conc 28 mmol/L Normal 21-31 [facility] Comment on above: Performed By: #### 0 4769, 30569 ####[facility] [place] [address], [place] Creatinine mass conc 0.82 mg/dL Normal 0.60-1.[address] [facility] Comment on above: Performed By: #### 6 1928, 83554 ####[facility] [place] [address], [place] GFR/1.73 sq M predicted among blacks MDRD vol rate/area (S/P/Bld) mL/min/{1.73_m2} Normal >60 The [facility] Comment on above: Performed By: #### 4 6995, 72719 ####[facility] [place] [address], [place] GFR/1.73 sq M predicted among non-blacks MDRD vol rate/area (S/P/Bld) mL/min/{1.73_m2} Normal >60 The [facility] Comment on above: Performed By: #### 4 6447, 24511 ####[facility] Glucose mass conc 90 mg/dL Normal 70-100 The [facility] Comment on above: Performed By: #### 4 6447, 32784 ####[facility] Potassium molar conc 4.1 mmol/L Normal 3.5-5.[address] [facility] Comment on above: Performed By: #### 4 6447, 43906 ####[facility] Protein mass conc 6.9 g/dL Normal 6.0-8.3 The [facility] Comment on above: Performed By: #### 4 6447, 04821 ####[facility] Sodium molar conc 138 mmol/L Normal 136-145 The [facility] Comment on above: Performed By: #### 4 6447, 61130 ####[facility] Urea nitrogen mass conc 16 mg/dL Normal 7-[address] [facility] Comment on above: Performed By: #### 4 6447, 88603 ####[facility] DIRECT BILIon 10-30-2017 Bilirubin.direct mass conc 0.0 mg/dL Normal 0.0-0.[address] [facility] Comment on above: Performed By: #### 4 5506, 16303, 08235, 23163, 06121, 78529 ####[facility] [place] [address], [facility] EVEROLIMUS [id number] 8 EVEROLIMUS 6.0 ng/mL Normal The [facility] Comment on above: Result Comment: Ther [...] the transplantcenter.Test developed and characteristics determined by [employer]. See Compliance Statement B: [employer]/CSPerformed by [employer],[address] [place] [id number] acu.[employer], Leonid Antonio MD - Lab. Director LIPID PROFILEon 10-30-2017 Cholesterol in HDL mass conc 50 mg/dL Normal 23-[address] [facility] Comment on above: Result Comment: Slig ht variation in normal range could be due to gender and/or age.HDL CHOLESTEROL REFERENCE RANGE:20 years and older Cardiovascular Risk> or =60 mg/dL Kqxctmedq11 TO 59 mg/dL Low Risk<40 mg/dL High Risk Performed By: #### 4 5811, 75278, 26949, 52420, 56347, 42571 ####[facility] Cholesterol in LDL mass conc 85 mg/dL Normal 0-[address] [facility] Comment on above: Result Comment: LDL IS A CALCULATIONLDL IS ONLY VALID IF THE TRIG IS LESS THAN 400. Performed By: #### 4 5506, 24424, 63097, 11209, 38363, 27730 ####[facility] [place] [address], [facility] Cholesterol mass conc 152 mg/dL Normal 120-[address] [facility] Comment on above: Result Comment: CHOL ESTEROL REFERENCE RANGE:20 YEARS AND OLDER CARDIOVASCULAR RISKLess than 200 mg/dl Low Mnlr184 to 239 mg/dl Borderline Uzbx817 mg/dl and greater High Risk Performed By: #### 4 5506, 02010, 29584, 08495, 18127, 47031 ####[facility] [place] [address], [facility] Cholesterol.total/Cho lesterol in HDL mass ratio 3.0 {ratio} Normal .0-4.[address] [facility] Comment on above: Performed By: #### 4 5506, 89152, 48011, 57413, 33251, 56915 ####[facility] [place] [address], [facility] NON-HDL CHOLESTEROL 102 mg/dL Normal [facility] Comment on above: Performed By: #### 4 5506, 77661, 31315, 05771, 15027, 73463 ####[facility]3000 [facility] [place] [address], [facility] Triglyceride mass conc 87 mg/dL Normal 40-[address] [facility] Comment on above: Result Comment: TRIG LYCERIDE REFERENCE RANGE:20 YEARS AND OLDER CARDIOVASCULAR RISKLESS THAN 150 mg/dl LOW [id number] TO 199 mg/dl BORDERLINE [id number] mg/dl AND GREATER HIGH RISK Performed By: #### 4 5506, 49813, 60956, 34125, 25266, 72375 ####[facility] [place] [address], [place] VLDL CHOL 17 mg/dL Normal 0-[address] [facility] Comment on above: Performed By: #### 4 5506, 54771, 27582, 27039, 90908, 19880 ####[facility]3000 [facility] [place] [address], [facility] MAGNESIUM BLOODon 10-30-2017 Magnesium mass conc 1.9 mg/dL Normal 1.9-2.7 [facility] Comment on above: Performed By: #### 4 5506, 89244, 70552, 17740, 29717, 03804 ####[facility]3000 [facility].[address] PHOSPHORUS BLOODon 8 Phosphate mass conc 3.7 mg/dL Normal 2.5-5.0 [facility] Comment on above: Performed By: #### 4 5506, 79973, 33382, 53035, 91426, 41987 ####[facility] TACROLIMUSon 10-30-2017 Tacrolimus mass conc (Bld) 7.1 ng/mL Normal 5.0-20.[address] [facility] Comment on above: Result Comment: The [employer] Tacrolimus assay is a delayed one-step immunoassayfor the quantitative determination of tacrolimus in human whole bloodusing the chemiluminescent microparticle immunoassay (CMIA) technologywith flexible assay protocols, referred to as Chemiflex. Performed By: #### 9 9914 ####[address] URIC ACID BLOODon 10-30-2017 Urate mass conc 4.6 mg/dL Normal 2.3-6.6 [facility] Comment on above: Performed By: #### 4 6977, 06862 ####[address] CBC W/DIFFon 10-23-2017 ABS BASOPHILS 0.0 10*3/uL Normal 0.0-0.2 The [facility] Comment on above: Performed By: #### 4 8906, 43394 ####[address] ABS IMM GRANS 0.1 10*3/uL Normal 0.0-0.2 [facility] Comment on above: Performed By: #### 4 3796, 86407 ####[facility] ABS NEUTROPHILS 5.8 10*3/uL Normal 1.6-7.[address] [facility] Comment on above: Performed By: #### 4 0793, 61331 ####[address] Basophils Auto #/vol (Bld) 0.2 % Normal 0.0-1.[address] [facility] Comment on above: Performed By: #### 2 3327, 07040 ####[address] Eosinophils Auto #/vol (Bld) 0.1 10*3/uL Normal 0.0-0.[address] [facility] Comment on above: Performed By: #### 1 6878, 66738 ####[place] [address] [facility].[address] Eosinophils/100 WBC Auto (Bld) 0.7 % Normal 0.0-6.[address] [facility] Comment on above: Performed By: #### 3 7552, 06127 ####[place] [address] Erythrocyte distribution width Auto Ratio (RBC) 14.6 % Normal 11.5-15.[address] [facility] Comment on above: Performed By: #### 2 3656, 49190 ####[address] Hematocrit Auto Volume Fraction (Bld) 44.2 % Normal 36.0-45.0 [facility] Comment on above: Performed By: #### 1 2447, 98803 ####[facility]3000 [facility].[address] Hemoglobin mass conc (Bld) 14.2 g/dL Normal 12.0-15.[address] [facility] Comment on above: Performed By: #### 4 0541, 37167 ####[facility] IMMATURE GRANS 1.4 % High 0.0-1.0 [facility] Comment on above: Performed By: #### 4 0016, 27891 ####[address] Lymphocytes Auto #/vol (Bld) 2.1 10*3/uL Normal 1.2-4.[address] [facility] Comment on above: Performed By: #### 6 8356, 75564 ####[address] Lymphocytes/100 WBC Auto (Bld) 22.5 % Normal 20.0-45.[address] [facility] Comment on above: Performed By: #### 3 7343, 95190 ####[address] MCH Auto Entitic mass (RBC) 28.5 pg Normal 27.0-33.[address] [facility] Comment on above: Performed By: #### 6 2011, 19228 ####[facility] MCHC Auto mass conc (RBC) 32.1 g/dL Normal 32.0-35.[address] [facility] Comment on above: Performed By: #### 3 3399, 10674 ####[address] MCV Auto Entitic volume (RBC) 88.8 fL Normal 82.0-98.[address] [facility] Comment on above: Performed By: #### 4 6447, 30061 ####[facility] [place] [address], [facility] Monocytes Auto #/vol (Bld) 1.1 10*3/uL High 0.1-1.[address] [facility] Comment on above: Performed By: #### 4 6447, 60213 ####[facility] [place] [address], [facility] MONOS 12.0 % Normal 5.0-12.[address] [facility] Comment on above: Performed By: #### 4 6447, 77802 ####[facility] [place] [address], [facility] Neutrophils/100 WBC Auto (Bld) 63.2 % Normal 40.0-72.[address] [facility] Comment on above: Performed By: #### 4 4247, 22166 ####[facility] [place] [address], [facility] Nucleated RBC/100 WBC Ratio (Bld) 0 % Normal 0-[address] [facility] Comment on above: Performed By: #### 4 6447, 20925 ####[facility] [place] [address], [facility] PLAT CNT 241 10*3/uL Normal 150-400 [facility] Comment on above: Performed By: #### 4 6447, 39987 ####[facility] [place] [address], [facility] RBC Auto #/vol (Bld) 4.98 10*6/uL Normal 3.80-5.00 [facility] Comment on above: Performed By: #### 4 6447, 47686 ####[facility] [place] [address], [facility] WBC Auto #/vol (Bld) 9.14 10*3/uL Normal 4.00-10.[address] [facility] Comment on above: Performed By: #### 4 6447, 11595 ####[facility] [place] [address], [facility] COMP METABOLIC PANELon 10-23 Albumin mass conc 3.8 g/dL Normal 3.5-5.7 The [facility] Comment on above: Performed By: #### 4 1747, 85094 ####[facility] [place] [address], [facility] ALKALINE PHOSPH 96 IU/L Normal 34-104 [facility] Comment on above: Performed By: #### 4 6447, 85526 ####[facility] [place] [address], [facility] ALT enzyme act/vol 15 U/L Normal 7-52 The [facility] Comment on above: Performed By: #### 4 0247, 49690 ####[facility] [place] [address], [facility] AST enzyme act/vol 13 U/L Normal 13-39 The [facility] Comment on above: Performed By: #### 4 6447, 89506 ####[facility] [place] [address], [facility] Bilirubin mass conc 0.4 mg/dL Normal 0.3-1.0 [facility] Comment on above: Performed By: #### 4 6447, 92913 ####[facility] [place] [address], [facility] Calcium mass conc 9.2 mg/dL Normal 8.6-10.3 The [facility] Comment on above: Performed By: #### 4 6447, 01058 ####[facility] [place] [address], [facility] Chloride molar conc 102 mmol/L Normal 98-107 [facility] Comment on above: Performed By: #### 4 5634, 95073 ####[facility]3000 [facility].[place] [id number], [facility] CO2 molar conc 29 mmol/L Normal 21-31 [facility] Comment on above: Performed By: #### 4 1513, 55152 ####[facility]3000 [facility] [place] [address], [facility] Creatinine mass conc 0.80 mg/dL Normal 0.60-1.[address] [facility] Comment on above: Performed By: #### 4 1557, 58839 ####[facility]3000 [facility] [place] [address], [facility] GFR/1.73 sq M predicted among blacks MDRD vol rate/area (S/P/Bld) mL/min/{1.73_m2} Normal >60 The [facility] Comment on above: Performed By: #### 1 3055, 30886 ####[facility]3000 [facility] [place] [address], [facility] GFR/1.73 sq M predicted among non-blacks MDRD vol rate/area (S/P/Bld) mL/min/{1.73_m2} Normal >60 [facility] Comment on above: Performed By: #### 7 9220, 84380 ####[facility]3000 [facility].[place] [id number], [facility] Glucose mass conc 85 mg/dL Normal 70-100 [facility] Comment on above: Performed By: #### 2 1903, 17735 ####[facility] [facility] [id number], [place] Potassium molar conc 3.3 mmol/L Low 3.5-5.[address] [facility] Comment on above: Performed By: #### 3 8041, 11589 ####[facility] Protein mass conc 6.5 g/dL Normal 6.0-8.3 The [facility] Comment on above: Performed By: #### 4 6447, 86891 ####[facility] Sodium molar conc 139 mmol/L Normal 136-145 [facility] Comment on above: Performed By: #### 4 6447, 82422 ####[facility] [facility].[address] Urea nitrogen mass conc 18 mg/dL Normal 7-[address] [facility] Comment on above: Performed By: #### 4 6447, 37283 ####[facility] [facility].[address] DIRECT BILIon 10-23-2017 Bilirubin.direct mass conc 0.1 mg/dL Normal 0.0-0.[address] [facility] Comment on above: Performed By: #### 4 6447, 67176 ####[facility]3000 [facility].[address] EVEROLIMUS [id number] 8 EVEROLIMUS 4.0 ng/mL Normal The [facility] Comment on above: Result Comment: Ther [...] the transplantcenter.Test developed and characteristics determined by [facility]. See Compliance Statement B: [employer]/CSPerformed by [employer],[facility] [place] [address] obn.[employer], Leonid Antonio MD - Lab. Director LIPID PROFILEon 10-23-2017 Cholesterol in HDL mass conc 53 mg/dL Normal 23-[address] [facility] Comment on above: Result Comment: Slig ht variation in normal range could be due to gender and/or age.HDL CHOLESTEROL REFERENCE RANGE:20 years and older Cardiovascular Risk> or =60 mg/dL Caxiyoazs50 TO 59 mg/dL Low Risk<40 mg/dL High Risk Performed By: #### 4 1507, 07362 ####[facility] [facility] [place] [address], [facility] Cholesterol in LDL mass conc 68 mg/dL Normal 0-[address] [facility] Comment on above: Result Comment: LDL IS A CALCULATIONLDL IS ONLY VALID IF THE TRIG IS LESS THAN 400. Performed By: #### 4 4196, 68923 ####[facility] [place] [address], [facility] Cholesterol mass conc 135 mg/dL Normal 120-[address] [facility] Comment on above: Result Comment: CHOL ESTEROL REFERENCE RANGE:20 YEARS AND OLDER CARDIOVASCULAR RISKLess than 200 mg/dl Low [id number] to 239 mg/dl Borderline Julq018 mg/dl and greater High Risk Performed By: #### 4 7394, 63781 ####[facility]3000 [facility] [place] [address], [place] Cholesterol.total/Cho lesterol in HDL mass ratio 2.5 {ratio} Normal .0-4.[address] [facility] Comment on above: Performed By: #### 4 0416, 95953 ####[facility]3000 [facility].[address] NON-HDL CHOLESTEROL 82 mg/dL Normal The [facility] Comment on above: Performed By: #### 4 6447, 93019 ####[facility]3000 [facility].[address] Triglyceride mass conc 72 mg/dL Normal 40-[address] [facility] Comment on above: Result Comment: TRIG LYCERIDE REFERENCE RANGE:20 YEARS AND OLDER CARDIOVASCULAR RISKLESS THAN 150 mg/dl LOW [id number] TO 199 mg/dl BORDERLINE [id number] mg/dl AND GREATER HIGH RISK Performed By: #### 4 0365, 57066 ####[place] [address] [facility].[address] VLDL CHOL 14 mg/dL Normal 0-[address] [facility] Comment on above: Performed By: #### 4 4601, 93661 ####[place] [address] [facility].[address] MAGNESIUM BLOODon 10-23-2017 Magnesium mass conc 1.8 mg/dL Low 1.9-2.7 [facility] Comment on above: Performed By: #### 4 5947, 74457 ####[place] [address] [facility] [place] [place] [address], [facility] PHOSPHORUS BLOODon 8 Phosphate mass conc 3.7 mg/dL Normal 2.5-5.0 [facility] Comment on above: Performed By: #### 4 4047, 09842 ####[facility] [facility] [place] [address], [facility] TACROLIMUSon 10-23-2017 Tacrolimus mass conc (Bld) 2.6 ng/mL Low 5.0-20.[address] [facility] Comment on above: Result Comment: The [employer] Tacrolimus assay is a delayed one-step immunoassayfor the quantitative determination of tacrolimus in human whole bloodusing the chemiluminescent microparticle immunoassay (CMIA) technologywith flexible assay protocols, referred to as Chemiflex. Performed By: #### 4 6447, 18429 ####[place] [address] URIC ACID BLOODon 10-23-2017 Urate mass conc 4.3 mg/dL Normal 2.3-6.6 [facility] Comment on above: Performed By: #### 4 6447, 85784 ####[place] [address] CBC W/DIFFon 09-25-2017 ABS BASOPHILS 0.0 10*3/uL Normal 0.0-0.2 The [facility] Comment on above: Performed By: #### 4 1000, 69873, 93733, 77202, 03658, 55582 ####[address] ABS IMM GRANS 0.0 10*3/uL Normal 0.0-0.2 [facility] Comment on above: Performed By: #### 4 1000, 05554, 82153, 47912, 87072, 25956 ####[place] [address] ABS NEUTROPHILS 4.4 10*3/uL Normal 1.6-7.[address] [facility] Comment on above: Performed By: #### 4 1000, 49370, 60750, 13365, 03207, 45851 ####[facility]3000 [facility].[address] Basophils Auto #/vol (Bld) 0.2 % Normal 0.0-1.[address] [facility] Comment on above: Performed By: #### 4 1000, 26545, 03186, 82609, 24317, 95088 ####[facility] [place] [address].[address] Eosinophils Auto #/vol (Bld) 0.1 10*3/uL Normal 0.0-0.[address] [facility] Comment on above: Performed By: #### 4 1000, 47770, 00584, 49016, 90954, 48104 ####[facility] Eosinophils/100 WBC Auto (Bld) 2.2 % Normal 0.0-6.[address] [facility] Comment on above: Performed By: #### 4 1000, 85368, 85747, 33243, 34062, 83480 ####[facility] Erythrocyte distribution width Auto Ratio (RBC) 14.0 % Normal 11.5-15.[address] [facility] Comment on above: Performed By: #### 4 1000, 03511, 27718, 38355, 96796, 62256 ####[facility] Hematocrit Auto Volume Fraction (Bld) 44.8 % Normal 36.0-45.0 [facility] Comment on above: Performed By: #### 4 1000, 51351, 59077, 30488, 69845, 24885 ####[facility] Hemoglobin mass conc (Bld) 14.5 g/dL Normal 12.0-15.[address] [facility] Comment on above: Performed By: #### 4 1000, 52532, 56886, 54613, 07566, 80038 ####[facility] IMMATURE GRANS 0.3 % Normal 0.0-1.0 [facility] Comment on above: Performed By: #### 4 1000, 48246, 30412, 54676, 54957, 84109 ####[facility] Lymphocytes Auto #/vol (Bld) 1.1 10*3/uL Low 1.2-4.[address] [facility] Comment on above: Performed By: #### 4 1000, 23090, 48106, 40125, 44356, 24825 ####[address] Lymphocytes/100 WBC Auto (Bld) 17.0 % Low 20.0-45.[address] [facility] Comment on above: Performed By: #### 4 1000, 76122, 19720, 54719, 85333, 97401 ####[address] MCH Auto Entitic mass (RBC) 28.6 pg Normal 27.0-33.[address] [facility] Comment on above: Performed By: #### 4 1000, 78826, 00337, 31111, 98406, 22152 ####[address] MCHC Auto mass conc (RBC) 32.4 g/dL Normal 32.0-35.[address] [facility] Comment on above: Performed By: #### 4 1000, 37034, 69118, 80328, 04921, 58312 ####[address] MCV Auto Entitic volume (RBC) 88.4 fL Normal 82.0-98.[address] [facility] Comment on above: Performed By: #### 4 1000, 44266, 95464, 90991, 05474, 06125 ####[address] Monocytes Auto #/vol (Bld) 0.7 10*3/uL Normal 0.1-1.[address] [facility] Comment on above: Performed By: #### 4 1000, 02533, 63169, 07484, 43044, 16660 ####[facility] [place] [address], [facility] MONOS 11.5 % Normal 5.0-12.[address] [facility] Comment on above: Performed By: #### 4 1000, 56345, 59569, 56196, 52585, 57523 ####[facility] [place] [address], [facility] Neutrophils/100 WBC Auto (Bld) 68.8 % Normal 40.0-72.[address] [facility] Comment on above: Performed By: #### 4 1000, 21504, 05899, 99321, 28771, 77156 ####[facility] [place] [address], [facility] Nucleated RBC/100 WBC Ratio (Bld) 0 % Normal 0-[address] [facility] Comment on above: Performed By: #### 4 1000, 41134, 42211, 99212, 65852, 85353 ####[facility] [place] [address], [facility] PLAT CNT 212 10*3/uL Normal 150-400 [facility] Comment on above: Performed By: #### 4 1000, 26422, 36811, 31007, 21099, 65858 ####[facility] [place] [address], [facility] RBC Auto #/vol (Bld) 5.07 10*6/uL High 3.80-5.[address] [facility] Comment on above: Performed By: #### 4 1000, 97730, 63377, 95691, 91865, 49349 ####[facility] [place] [address], [facility] WBC Auto #/vol (Bld) 6.34 10*3/uL Normal 4.00-10.[address] [facility] Comment on above: Performed By: #### 4 1000, 42487, 37653, 51085, 47277, 63889 ####[facility] [facility].[address] COMP METABOLIC PANELon 09-25 Albumin mass conc 4.0 g/dL Normal 3.5-5.7 The [facility] Comment on above: Performed By: #### 4 6447, 94141 ####[facility] ALKALINE PHOSPH 112 IU/L High 34-104 [facility] Comment on above: Performed By: #### 4 5947, 43872 ####[place] [address] [facility].[address] ALT enzyme act/vol 11 U/L Normal 7-52 [facility] Comment on above: Performed By: #### 4 5247, 45619 ####[place] [address] AST enzyme act/vol 17 U/L Normal 13-39 [facility] Comment on above: Performed By: #### 4 6590, 81977 ####[address] [address], [facility] Bilirubin mass conc 0.5 mg/dL Normal 0.3-1.0 [facility] Comment on above: Performed By: #### 4 7947, 35055 ####[facility] [place] [address], [facility] Calcium mass conc 9.6 mg/dL Normal 8.6-10.3 The [facility] Comment on above: Performed By: #### 4 3482, 35472 ####[address] [place] [address], [facility] Chloride molar conc 104 mmol/L Normal 98-107 [facility] Comment on above: Performed By: #### 4 3129, 30097 ####[facility] [place] [address], [facility] CO2 molar conc 28 mmol/L Normal 21-31 [facility] Comment on above: Performed By: #### 5 8196, 74646 ####[facility] [place] [address], [facility] Creatinine mass conc 0.83 mg/dL Normal 0.60-1.[address] [facility] Comment on above: Performed By: #### 5 0177, 57653 ####[facility] [place] [address], [facility] GFR/1.73 sq M predicted among blacks MDRD vol rate/area (S/P/Bld) mL/min/{1.73_m2} Normal >60 The [facility] Comment on above: Performed By: #### 0 4094, 11889 ####[facility] [place] [address], [facility] GFR/1.73 sq M predicted among non-blacks MDRD vol rate/area (S/P/Bld) mL/min/{1.73_m2} Normal >60 The [facility] Comment on above: Performed By: #### 3 0165, 24687 ####[facility] [place] [address], [facility] Glucose mass conc 91 mg/dL Normal 70-100 [facility] Comment on above: Performed By: #### 5 9617, 65605 ####[facility] [place] [address], [facility] Potassium molar conc 3.9 mmol/L Normal 3.5-5.[address] [facility] Comment on above: Performed By: #### 7 1101, 61909 ####[facility] [place] [address], [place] Protein mass conc 7.0 g/dL Normal 6.0-8.3 The [facility] Comment on above: Performed By: #### 4 6447, 41717 ####[facility]3000 [facility].[address] Sodium molar conc 140 mmol/L Normal 136-145 [facility] Comment on above: Performed By: #### 4 6447, 73847 ####[facility]3000 [facility].[address] Urea nitrogen mass conc 15 mg/dL Normal 7-[address] [facility] Comment on above: Performed By: #### 4 6447, 87064 ####[place] [address] [facility].[address] DIRECT BILIon 09-25-2017 Bilirubin.direct mass conc 0.1 mg/dL Normal 0.0-0.[address] [facility] Comment on above: Performed By: #### 4 6447, 08878 ####[facility]3000 [facility].[address] EVEROLIMUS 47384ku 8 EVEROLIMUS 5.1 ng/mL Normal The [facility] Comment on above: Result Comment: Ther [...] the transplantcenter.Test developed and characteristics determined by [facility]. See Compliance Statement B: [employer]/CSPerformed by [employer],[address], [facility] [place] [address] nyy.[employer], Leonid Antonio MD - Lab. Director LIPID PROFILEon 09-25-2017 Cholesterol in HDL mass conc 48 mg/dL Normal 23-[address] [facility] Comment on above: Result Comment: Slig ht variation in normal range could be due to gender and/or age.HDL CHOLESTEROL REFERENCE RANGE:20 years and older Cardiovascular Risk> or =60 mg/dL [id number] TO 59 mg/dL Low Risk<40 mg/dL High Risk Performed By: #### 4 2443, 94100 ####[facility] [facility] [place] [address], [facility] Cholesterol in LDL mass conc 69 mg/dL Normal 0-[address] [facility] Comment on above: Result Comment: LDL IS A CALCULATIONLDL IS ONLY VALID IF THE TRIG IS LESS THAN 400. Performed By: #### 4 4885, 54768 ####[facility] [facility] [place] [address], [facility] Cholesterol mass conc 138 mg/dL Normal 120-[address] [facility] Comment on above: Result Comment: CHOL ESTEROL REFERENCE RANGE:20 YEARS AND OLDER CARDIOVASCULAR RISKLess than 200 mg/dl Low Uixt431 to 239 mg/dl Borderline Lgfu526 mg/dl and greater High Risk Performed By: #### 4 6469, 35226 ####[facility] [facility] [place] [address], [facility] Cholesterol.total/Cho lesterol in HDL mass ratio 2.9 {ratio} Normal .0-4.[address] [facility] Comment on above: Performed By: #### 4 1425, 95759 ####[facility] NON-HDL CHOLESTEROL 90 mg/dL Normal [facility] Comment on above: Performed By: #### 4 0302, 38725 ####[facility] Triglyceride mass conc 103 mg/dL Normal 40-[address] [facility] Comment on above: Result Comment: TRIG LYCERIDE REFERENCE RANGE:20 YEARS AND OLDER CARDIOVASCULAR RISKLESS THAN 150 mg/dl LOW [id number] TO 199 mg/dl BORDERLINE IUAI292 mg/dl AND GREATER HIGH RISK Performed By: #### 4 8423, 59344 ####[facility] VLDL CHOL 21 mg/dL Normal 0-[address] [facility] Comment on above: Performed By: #### 4 7719, 43530 ####[facility] MAGNESIUM BLOODon 09-25-2017 Magnesium mass conc 1.8 mg/dL Low 1.9-2.7 [facility] Comment on above: Performed By: #### 4 2865, 34244 ####[facility]3000 [facility].[address] PHOSPHORUS BLOODon 8 Phosphate mass conc 3.4 mg/dL Normal 2.5-5.0 [facility] Comment on above: Performed By: #### 4 1625, 92081 ####[facility]3000 [facility].[address] TACROLIMUSon 09-25-2017 Tacrolimus mass conc (Bld) 3.6 ng/mL Low 5.0-20.[address] [facility] Comment on above: Result Comment: The [employer] Tacrolimus assay is a delayed one-step immunoassayfor the quantitative determination of tacrolimus in human whole bloodusing the chemiluminescent microparticle immunoassay (CMIA) technologywith flexible assay protocols, referred to as Chemiflex. Performed By: #### 4 4891, 76888 ####[facility]3000 [facility].[address] URIC ACID BLOODon 09-25-2017 Urate mass conc 4.7 mg/dL Normal 2.3-6.6 [facility] Comment on above: Performed By: #### 4 6447, 20357 ####[facility]3000 [facility].[address] BK VIRUS QUANTITATION PCR BL OODon 08-26-2017 BKV QUANT PCR Not detected Normal [facility] Comment on above: Result Comment: Meth od: BK virus was measured by quantitative polymerase chain reactionusing a TaqMan probe targeting the polyomavirus BK [employer]-1 gene.The lower limit of quantitation of the assay is 500 copies of BK genomeper milliliter of plasma or urine, and any detectable BK DNA below thatlevel is reported as: Detected, <500 copies/ml. Serial BK virusmeasurement can be used to monitor disease activity. (Reference:Kelsie vaughanl. J CLIN MICRO 2004; 42:4198-5430).This test was developed and its performance characteristics determinedby the [facility]. It has not been approvedby the [place] Food and Drug Administration. However, such approval is notrequired for clinical implementation, and test results have been shownto be clinically useful. This laboratory is CAP accredited and CLIAcertified to perform high complexity testing. Performed By: #### 4 1000, 80834, 03310, 37486, 97431, 09845 ####[facility]3000 [facility].[address] LOG 10 COPIES Not detected Normal [facility] Comment on above: Performed By: #### 4 1000, 61496, 91378, 38897, 99271, 72324 ####[facility]3000 [facility].[address] CBC W/DIFFon 08-26-2017 ABS BASOPHILS 0.0 10*3/uL Normal 0.0-0.2 [facility] Comment on above: Performed By: #### 4 1000, 02627, 52839, 18529, 81257, 68056 ####[facility] [facility].[address] ABS IMM GRANS 0.0 10*3/uL Normal 0.0-0.2 [facility] Comment on above: Performed By: #### 4 1000, 85530, 66014, 75887, 30322, 06095 ####[facility]3000 [facility].[address] ABS NEUTROPHILS 4.5 10*3/uL Normal 1.6-7.[address] [facility] Comment on above: Performed By: #### 4 1000, 96809, 37401, 00967, 41608, 13036 ####[facility]3000 [facility].[address] Basophils Auto #/vol (Bld) 0.2 % Normal 0.0-1.[address] [facility] Comment on above: Performed By: #### 4 1000, 45294, 08225, 16396, 56530, 11229 ####[facility]3000 [facility].[address] Eosinophils Auto #/vol (Bld) 0.2 10*3/uL Normal 0.0-0.[address] [facility] Comment on above: Performed By: #### 4 1000, 64427, 52917, 82409, 16921, 62956 ####[facility]3000 [facility].[address] Eosinophils/100 WBC Auto (Bld) 2.4 % Normal 0.0-6.[address] [facility] Comment on above: Performed By: #### 4 1000, 39228, 67013, 32275, 77573, 97221 ####[facility]3000 [facility].[address] Erythrocyte distribution width Auto Ratio (RBC) 14.0 % Normal 11.5-15.[address] [facility] Comment on above: Performed By: #### 4 1000, 74763, 11816, 54850, 50790, 89380 ####[facility]3000 [facility].[address] Hematocrit Auto Volume Fraction (Bld) 44.9 % Normal 36.0-45.0 [facility] Comment on above: Performed By: #### 4 1000, 33562, 82365, 68460, 05158, 06958 ####[facility]3000 [facility].[address] Hemoglobin mass conc (Bld) 14.9 g/dL Normal 12.0-15.[address] [facility] Comment on above: Performed By: #### 4 1000, 35557, 32336, 89868, 51040, 52686 ####[facility]3000 [facility].[address] IMMATURE GRANS 0.5 % Normal 0.0-1.0 [facility] Comment on above: Performed By: #### 4 1000, 18971, 35121, 63371, 89515, 29907 ####[facility]3000 [facility].[address] Lymphocytes Auto #/vol (Bld) 1.0 10*3/uL Low 1.2-4.[address] [facility] Comment on above: Performed By: #### 4 1000, 39873, 99845, 37174, 84056, 06458 ####[facility]3000 [facility].[address] Lymphocytes/100 WBC Auto (Bld) 15.8 % Low 20.0-45.[address] [facility] Comment on above: Performed By: #### 4 1000, 86902, 05588, 03882, 44255, 60306 ####[facility]3000 [facility].[address] MCH Auto Entitic mass (RBC) 29.1 pg Normal 27.0-33.[address] [facility] Comment on above: Performed By: #### 4 1000, 23627, 18115, 03221, 05987, 85523 ####[facility] MCHC Auto mass conc (RBC) 33.2 g/dL Normal 32.0-35.[address] [facility] Comment on above: Performed By: #### 4 1000, 58419, 67311, 65582, 86871, 35381 ####[facility] MCV Auto Entitic volume (RBC) 87.7 fL Normal 82.0-98.[address] [facility] Comment on above: Performed By: #### 4 1000, 33458, 94111, 90187, 40566, 77663 ####[facility] Monocytes Auto #/vol (Bld) 0.7 10*3/uL Normal 0.1-1.[address] [facility] Comment on above: Performed By: #### 4 1000, 11901, 27072, 56888, 10025, 09885 ####[facility] MONOS 10.6 % Normal 5.0-12.[address] [facility] Comment on above: Performed By: #### 4 1000, 20262, 94334, 98182, 72487, 94415 ####[facility] Neutrophils/100 WBC Auto (Bld) 70.5 % Normal 40.0-72.[address] [facility] Comment on above: Performed By: #### 4 1000, 01364, 45602, 19417, 34007, 45046 ####[facility] Nucleated RBC/100 WBC Ratio (Bld) 0 % Normal 0-[address] [facility] Comment on above: Performed By: #### 4 1000, 32387, 61168, 60711, 45473, 25469 ####[facility] PLAT CNT 231 10*3/uL Normal 150-400 [facility] Comment on above: Performed By: #### 4 1000, 18373, 25113, 85115, 82944, 42263 ####[facility]3000 [facility].[address] RBC Auto #/vol (Bld) 5.12 10*6/uL High 3.80-5.[address] [facility] Comment on above: Performed By: #### 4 1000, 47485, 40580, 93849, 26803, 21068 ####[facility] WBC Auto #/vol (Bld) 6.32 10*3/uL Normal 4.00-10.[address] [facility] Comment on above: Performed By: #### 4 1000, 48255, 81365, 45714, 53885, 45688 ####[facility]3000 [facility].[address] COMP METABOLIC PANELon 08-26 Albumin mass conc 4.3 g/dL Normal 3.5-5.7 [facility] Comment on above: Performed By: #### 4 1000, 73175, 90096, 34555, 56701, 81222 ####[facility] ALKALINE PHOSPH 125 IU/L High 34-104 [facility] Comment on above: Performed By: #### 4 1000, 92071, 22836, 68560, 26945, 14932 ####[facility] [place] [address], [facility] ALT enzyme act/vol 17 U/L Normal 7-52 [facility] Comment on above: Performed By: #### 4 1000, 06261, 77274, 67053, 96706, 95998 ####[facility] [place] [address], [place] AST enzyme act/vol 23 U/L Normal 13-39 [facility] Comment on above: Performed By: #### 4 1000, 27115, 25451, 04125, 07310, 72761 ####[facility] [place] [address], [facility] Bilirubin mass conc 0.4 mg/dL Normal 0.3-1.0 [facility] Comment on above: Performed By: #### 4 1000, 66098, 83512, 81166, 85813, 97270 ####[facility] [place] [address], [place] Calcium mass conc 9.6 mg/dL Normal 8.6-10.3 [facility] Comment on above: Performed By: #### 4 1000, 47959, 12962, 05031, 04692, 81424 ####[facility] [place] [address], [place] Chloride molar conc 104 mmol/L Normal 98-107 [facility] Comment on above: Performed By: #### 4 1000, 25623, 99707, 38042, 51642, 15987 ####[facility] [place] [address], [place] CO2 molar conc 27 mmol/L Normal 21-31 [facility] Comment on above: Performed By: #### 4 1000, 31407, 07762, 95342, 72559, 21219 ####[facility] [place] [address], [facility] Creatinine mass conc 0.77 mg/dL Normal 0.60-1.[address] [facility] Comment on above: Performed By: #### 4 1000, 16083, 70733, 50623, 38418, 18290 ####[facility] [place] [address], [facility] GFR/1.73 sq M predicted among blacks MDRD vol rate/area (S/P/Bld) mL/min/{1.73_m2} Normal >60 The [facility] Comment on above: Performed By: #### 4 1000, 06195, 22557, 44965, 97589, 22961 ####[facility] [place] [address], [facility] GFR/1.73 sq M predicted among non-blacks MDRD vol rate/area (S/P/Bld) mL/min/{1.73_m2} Normal >60 The [facility] Comment on above: Performed By: #### 4 1000, 61987, 25720, 56414, 77127, 02669 ####[facility] [place] [address], [facility] Glucose mass conc 95 mg/dL Normal 70-100 The [facility] Comment on above: Performed By: #### 4 1000, 39678, 10633, 99118, 07660, 72239 ####[facility] [place] [address], [facility] Potassium molar conc 4.1 mmol/L Normal 3.5-5.[address] [facility] Comment on above: Performed By: #### 4 1000, 39762, 77193, 96690, 38185, 43199 ####[facility] [place] [address], [facility] Protein mass conc 7.3 g/dL Normal 6.0-8.3 The [facility] Comment on above: Performed By: #### 4 1000, 69068, 38116, 52865, 71765, 84352 ####[facility] Sodium molar conc 139 mmol/L Normal 136-145 The [facility] Comment on above: Performed By: #### 4 1000, 35699, 23181, 05635, 13663, 20536 ####[facility] Urea nitrogen mass conc 12 mg/dL Normal 7-[address] [facility] Comment on above: Performed By: #### 4 1000, 73313, 57390, 37515, 17698, 15283 ####[facility] DIRECT BILIon 08-26-2017 Bilirubin.direct mass conc 0.1 mg/dL Normal 0.0-0.[address] [facility] Comment on above: Performed By: #### 4 1000, 76362, 79596, 09205, 54616, 45711 ####[facility]3000 [facility].[address] EVEROLIMUS [id number] 8 EVEROLIMUS 5.6 ng/mL Normal [facility] Comment on above: Result Comment: Ther [...] the transplantcenter.Test developed and characteristics determined by [facility]. See Compliance Statement B: [employer]/CSPerformed by [employer],[address] [place] [address] gub.[employer], Leonid Antonio MD - Lab. Director HEMOGLOBIN A1Con 08-26-2017 Glucose mass conc 114 mg/dL Normal 70-126 [facility] Comment on above: Performed By: #### 4 1000, 66005, 55461, 32470, 71539, 24902 ####[facility]3000 [facility].[address] Hemoglobin A1c/Hemoglobin.total mass fraction (Bld) 5.6 % Normal 4.0-6.0 The [facility] Comment on above: Performed By: #### 4 1000, 65918, 41728, 44194, 50026, 88628 ####[facility] LIPID PROFILEon 08-26-2017 Cholesterol in HDL mass conc 49 mg/dL Normal 23-[address] [facility] Comment on above: Result Comment: Slig ht variation in normal range could be due to gender and/or age.HDL CHOLESTEROL REFERENCE RANGE:20 years and older Cardiovascular Risk> or =60 mg/dL Imxrvukkc23 TO 59 mg/dL Low Risk<40 mg/dL High Risk Performed By: #### 4 1000, 10081, 81596, 19692, 30682, 28403 ####[facility] [place] [address], [facility] Cholesterol in LDL mass conc 76 mg/dL Normal 0-[address] [facility] Comment on above: Result Comment: LDL IS A CALCULATIONLDL IS ONLY VALID IF THE TRIG IS LESS THAN 400. Performed By: #### 4 1000, 28739, 18842, 90135, 11286, 70333 ####[facility] [place] [address], [facility] Cholesterol mass conc 152 mg/dL Normal 120-[address] [facility] Comment on above: Result Comment: CHOL ESTEROL REFERENCE RANGE:20 YEARS AND OLDER CARDIOVASCULAR RISKLess than 200 mg/dl Low Bvup650 to 239 mg/dl Borderline Duxc531 mg/dl and greater High Risk Performed By: #### 4 1000, 31608, 27376, 17886, 51674, 33275 ####[facility] [place] [address], [facility] Cholesterol.total/Cho lesterol in HDL mass ratio 3.1 {ratio} Normal .0-4.[address] [facility] Comment on above: Performed By: #### 4 1000, 08919, 55526, 17437, 47003, 55154 ####[facility] NON-HDL CHOLESTEROL 103 mg/dL Normal The [facility] Comment on above: Performed By: #### 4 1000, 38381, 71328, 65994, 85969, 23518 ####[facility] [facility] [place] [address], [facility] Triglyceride mass conc 133 mg/dL Normal 40-[address] [facility] Comment on above: Result Comment: TRIG LYCERIDE REFERENCE RANGE:20 YEARS AND OLDER CARDIOVASCULAR RISKLESS THAN 150 mg/dl LOW OGGH450 TO 199 mg/dl BORDERLINE FPYP760 mg/dl AND GREATER HIGH RISK Performed By: #### 4 1000, 89373, 45185, 80132, 75027, 77187 ####[facility] [place] [address], [facility] VLDL CHOL 27 mg/dL Normal 0-[address] [facility] Comment on above: Performed By: #### 4 1000, 24161, 56728, 91358, 31012, 74567 ####[facility] [facility].[address] MAGNESIUM BLOODon 08-26-2017 Magnesium mass conc 1.9 mg/dL Normal 1.9-2.7 The [facility] Comment on above: Performed By: #### 4 1000, 36846, 82877, 02637, 02746, 28345 ####[facility]3000 [facility].[address] PHOSPHORUS BLOODon 8 Phosphate mass conc 3.4 mg/dL Normal 2.5-5.0 The [facility] Comment on above: Performed By: #### 4 1000, 52869, 82205, 13758, 58041, 24361 ####[facility] TACROLIMUSon 08-26-2017 Tacrolimus mass conc (Bld) 4.3 ng/mL Low 5.0-20.[address] [facility] Comment on above: Result Comment: The [employer] Tacrolimus assay is a delayed one-step immunoassayfor the quantitative determination of tacrolimus in human whole bloodusing the chemiluminescent microparticle immunoassay (CMIA) technologywith flexible assay protocols, referred to as Chemiflex. Performed By: #### 4 1000, 80756, 04086, 68331, 23188, 48742 ####[facility] URIC ACID BLOODon 08-26-2017 Urate mass conc 4.6 mg/dL Normal 2.3-6.6 [facility] Comment on above: Performed By: #### 4 1000, 45392, 19381, 07046, 92926, 33552 ####[facility] CBC W/DIFFon 07-23-2017 ABS BASOPHILS 0.0 10*3/uL Normal 0.0-0.2 The [facility] Comment on above: Performed By: #### 4 1000, 85735, 46965, 59926, 73646, 72635 ####[facility]3000 [facility].[address] ABS IMM GRANS 0.0 10*3/uL Normal 0.0-0.2 The [facility] Comment on above: Performed By: #### 4 1000, 80395, 74061, 10907, 82763, 21270 ####[facility] [facility] [place] [address], [facility] ABS NEUTROPHILS 4.4 10*3/uL Normal 1.6-7.[address] [facility] Comment on above: Performed By: #### 4 1000, 15358, 35759, 15424, 14804, 72417 ####[facility]3000 [facility].[address] Basophils Auto #/vol (Bld) 0.2 % Normal 0.0-1.[address] [facility] Comment on above: Performed By: #### 4 1000, 12873, 94786, 70617, 96650, 35645 ####[facility]3000 [facility].[address] Eosinophils Auto #/vol (Bld) 0.1 10*3/uL Normal 0.0-0.[address] [facility] Comment on above: Performed By: #### 4 1000, 79826, 45940, 35369, 20799, 59411 ####[facility]3000 [facility].[address] Eosinophils/100 WBC Auto (Bld) 2.1 % Normal 0.0-6.[address] [facility] Comment on above: Performed By: #### 4 1000, 26088, 30656, 55364, 43571, 17802 ####[facility]3000 [facility].[address] Erythrocyte distribution width Auto Ratio (RBC) 13.7 % Normal 11.5-15.[address] [facility] Comment on above: Performed By: #### 4 1000, 85127, 98825, 77728, 26846, 61379 ####[facility]3000 [facility].[address] Hematocrit Auto Volume Fraction (Bld) 44.4 % Normal 36.0-45.0 The [facility] Comment on above: Performed By: #### 4 1000, 40845, 08574, 53880, 31744, 27849 ####[facility] [facility].[address] Hemoglobin mass conc (Bld) 14.7 g/dL Normal 12.0-15.[address] [facility] Comment on above: Performed By: #### 4 1000, 08154, 16856, 83902, 79558, 70882 ####[facility]3000 [facility].[address] IMMATURE GRANS 0.5 % Normal 0.0-1.0 The [facility] Comment on above: Performed By: #### 4 1000, 79048, 35929, 68144, 62020, 80071 ####[facility]3000 [facility].[address] Lymphocytes Auto #/vol (Bld) 1.0 10*3/uL Low 1.2-4.[address] [facility] Comment on above: Performed By: #### 4 1000, 38241, 46035, 27387, 55488, 40023 ####[facility]3000 [facility].[address] Lymphocytes/100 WBC Auto (Bld) 15.5 % Low 20.0-45.[address] [facility] Comment on above: Performed By: #### 4 1000, 42268, 34526, 60239, 11509, 23113 ####[facility]3000 [facility].[address] MCH Auto Entitic mass (RBC) 28.9 pg Normal 27.0-33.[address] [facility] Comment on above: Performed By: #### 4 1000, 31652, 81268, 11175, 12402, 50767 ####[facility] MCHC Auto mass conc (RBC) 33.1 g/dL Normal 32.0-35.[address] [facility] Comment on above: Performed By: #### 4 1000, 83274, 72968, 75139, 65796, 82707 ####[facility] MCV Auto Entitic volume (RBC) 87.4 fL Normal 82.0-98.[address] [facility] Comment on above: Performed By: #### 4 1000, 47008, 40397, 33367, 04322, 81592 ####[facility] Monocytes Auto #/vol (Bld) 0.8 10*3/uL Normal 0.1-1.[address] [facility] Comment on above: Performed By: #### 4 1000, 80076, 74683, 25352, 76008, 03590 ####[facility] MONOS 12.3 % High 5.0-12.[address] [facility] Comment on above: Performed By: #### 4 1000, 91592, 03414, 15106, 44758, 43838 ####[facility] Neutrophils/100 WBC Auto (Bld) 69.4 % Normal 40.0-72.[address] [facility] Comment on above: Performed By: #### 4 1000, 45427, 66649, 32864, 04208, 26905 ####[facility] Nucleated RBC/100 WBC Ratio (Bld) 0 % Normal 0-[address] [facility] Comment on above: Performed By: #### 4 1000, 43546, 22114, 74601, 31959, 73010 ####[facility] PLAT CNT 218 10*3/uL Normal 150-400 [facility] Comment on above: Performed By: #### 4 1000, 76757, 12871, 36483, 45361, 71307 ####[facility] RBC Auto #/vol (Bld) 5.08 10*6/uL High 3.80-5.00 [facility] Comment on above: Performed By: #### 4 1000, 41028, 46893, 96171, 74056, 73058 ####[facility] WBC Auto #/vol (Bld) 6.3 10*3/uL Normal 4.0-10.[address] [facility] Comment on above: Performed By: #### 4 1000, 56737, 03386, 81493, 53301, 43406 ####[facility] COMP METABOLIC PANELon 07-23 Albumin mass conc 4.2 g/dL Normal 3.5-5.7 The [facility] Comment on above: Performed By: #### 4 1000, 22148, 63207, 07780, 10818, 51829 ####[facility] ALKALINE PHOSPH 113 IU/L High 34-104 [facility] Comment on above: Performed By: #### 4 1000, 56110, 32639, 05386, 14405, 58138 ####[facility] ALT enzyme act/vol 23 U/L Normal 7-52 The [facility] Comment on above: Performed By: #### 4 1000, 94521, 27044, 01314, 25142, 53953 ####[facility] [place] [address], [facility] AST enzyme act/vol 25 U/L Normal 13-39 The [facility] Comment on above: Performed By: #### 4 1000, 91371, 28275, 81086, 37324, 40922 ####[facility] [place] [address], [facility] Bilirubin mass conc 0.6 mg/dL Normal 0.3-1.0 The [facility] Comment on above: Performed By: #### 4 1000, 53477, 12440, 85069, 27325, 04921 ####[facility] [place] [address], [facility] Calcium mass conc 9.6 mg/dL Normal 8.6-10.3 The [facility] Comment on above: Performed By: #### 4 1000, 99979, 27391, 37657, 15696, 44113 ####[facility] [place] [address], [facility] Chloride molar conc 104 mmol/L Normal 98-107 The [facility] Comment on above: Performed By: #### 4 1000, 84380, 05442, 83851, 81327, 92652 ####[facility] [place] [address], [facility] CO2 molar conc 25 mmol/L Normal 21-31 The [facility] Comment on above: Performed By: #### 4 1000, 56997, 36245, 86446, 01135, 41986 ####[facility] [address], [place] Creatinine mass conc 0.80 mg/dL Normal 0.60-1.[address] [facility] Comment on above: Performed By: #### 4 1000, 87719, 40566, 86686, 17530, 57572 ####[facility] [place] [address], [facility] GFR/1.73 sq M predicted among blacks MDRD vol rate/area (S/P/Bld) mL/min/{1.73_m2} Normal >60 The [facility] Comment on above: Performed By: #### 4 1000, 76843, 31909, 15912, 50281, 82608 ####[facility] [place] [address], [facility] GFR/1.73 sq M predicted among non-blacks MDRD vol rate/area (S/P/Bld) mL/min/{1.73_m2} Normal >60 [facility] Comment on above: Performed By: #### 4 1000, 31133, 74747, 51432, 59577, 18446 ####[facility] [place] [address], [facility] Glucose mass conc 91 mg/dL Normal 70-100 The [facility] Comment on above: Performed By: #### 4 1000, 11736, 35192, 11415, 44732, 46219 ####[facility] [place] [address], [facility] Potassium molar conc 4.0 mmol/L Normal 3.5-5.[address] [facility] Comment on above: Performed By: #### 4 1000, 30669, 00426, 18217, 81793, 21873 ####[facility] [id number], [facility] Protein mass conc 6.8 g/dL Normal 6.0-8.3 The [facility] Comment on above: Performed By: #### 4 1000, 64680, 32305, 68620, 35139, 74828 ####[facility] Sodium molar conc 140 mmol/L Normal 136-145 [facility] Comment on above: Performed By: #### 4 1000, 01877, 25016, 52750, 41926, 08723 ####[facility] Urea nitrogen mass conc 16 mg/dL Normal 7-[address] [facility] Comment on above: Performed By: #### 4 1000, 50441, 63549, 55173, 75616, 29159 ####[facility] DIRECT BILIon 07-23-2017 Bilirubin.direct mass conc 0.2 mg/dL Normal 0.0-0.[address] [facility] Comment on above: Performed By: #### 4 1000, 60498, 85941, 89314, 66354, 96876 ####[facility]3000 [facility].[address] EVEROLIMUS 32289zs 8 EVEROLIMUS 5.3 ng/mL Normal [facility] Comment on above: Result Comment: Ther [...] the transplantcenter.Test developed and characteristics determined by [facility]. See Compliance Statement B: [employer]/CSPerformed by [employer],[address] [facility] [place] [address] und.[employer], Leonid Antonio MD - Lab. Director LIPID PROFILEon 07-23-2017 Cholesterol in HDL mass conc 45 mg/dL Normal 23-[address] [facility] Comment on above: Result Comment: Slig ht variation in normal range could be due to gender and/or age.HDL CHOLESTEROL REFERENCE RANGE:20 years and older Cardiovascular Risk> or =60 mg/dL [id number] TO 59 mg/dL Low Risk<40 mg/dL High Risk Performed By: #### 4 1000, 72283, 10457, 03632, 60614, 96418 ####[facility] [facility] [place] [address], [facility] Cholesterol in LDL mass conc 79 mg/dL Normal 0-[address] [facility] Comment on above: Result Comment: LDL IS A CALCULATIONLDL IS ONLY VALID IF THE TRIG IS LESS THAN 400. Performed By: #### 4 1000, 84524, 88366, 76072, 92109, 80088 ####[facility] [place] [address], [facility] Cholesterol mass conc 141 mg/dL Normal 120-[address] [facility] Comment on above: Result Comment: CHOL ESTEROL REFERENCE RANGE:20 YEARS AND OLDER CARDIOVASCULAR RISKLess than 200 mg/dl Low Rhit658 to 239 mg/dl Borderline Ybri372 mg/dl and greater High Risk Performed By: #### 4 1000, 41033, 56468, 77494, 92852, 57535 ####[facility] [place] [address], [place] Cholesterol.total/Cho lesterol in HDL mass ratio 3.1 {ratio} Normal .0-4.[address] [facility] Comment on above: Performed By: #### 4 1000, 71107, 28491, 67042, 61893, 52923 ####[facility] NON-HDL CHOLESTEROL 96 mg/dL Normal [facility] Comment on above: Performed By: #### 4 1000, 67375, 75937, 85244, 22125, 89364 ####[facility] Triglyceride mass conc 83 mg/dL Normal 40-[address] [facility] Comment on above: Result Comment: TRIG LYCERIDE REFERENCE RANGE:20 YEARS AND OLDER CARDIOVASCULAR RISKLESS THAN 150 mg/dl LOW [id number] TO 199 mg/dl BORDERLINE [id number] mg/dl AND GREATER HIGH RISK Performed By: #### 4 1000, 60994, 93072, 01588, 37359, 59650 ####[facility] VLDL CHOL 17 mg/dL Normal 0-[address] [facility] Comment on above: Performed By: #### 4 1000, 95826, 19332, 09264, 95983, 21704 ####[facility] [facility] MAGNESIUM BLOODon 07-23-2017 Magnesium mass conc 2.0 mg/dL Normal 1.9-2.7 The [facility] Comment on above: Performed By: #### 4 1000, 76599, 78726, 96695, 67223, 24849 ####[facility] [place] [address], [facility] PHOSPHORUS BLOODon 8 Phosphate mass conc 4.0 mg/dL Normal 2.5-5.0 The [facility] Comment on above: Performed By: #### 4 1000, 35034, 32023, 73602, 03570, 48587 ####[facility] TACROLIMUSon 07-23-2017 Tacrolimus mass conc (Bld) 4.6 ng/mL Low 5.0-20.[address] [facility] Comment on above: Result Comment: The [employer] Tacrolimus assay is a delayed one-step immunoassayfor the quantitative determination of tacrolimus in human whole bloodusing the chemiluminescent microparticle immunoassay (CMIA) technologywith flexible assay protocols, referred to as Chemiflex. Performed By: #### 4 1000, 35963, 46322, 96304, 28230, 96964 ####[facility]3000 [facility].[address] URIC ACID BLOODon 07-23-2017 Urate mass conc 4.7 mg/dL Normal 2.3-6.6 [facility] Comment on above: Performed By: #### 4 1000, 95664, 03652, 50518, 20768, 11266 ####[facility]3000 [facility].[address] CBC W/DIFFon 06-20-2017 ABS BASOPHILS 0.0 10*3/uL Normal 0.0-0.2 The [facility] Comment on above: Performed By: #### 4 1000, 46656, 14443, 57838, 87330, 72499 ####[facility]3000 [facility].[address] ABS IMM GRANS 0.0 10*3/uL Normal 0.0-0.2 [facility] Comment on above: Performed By: #### 4 1000, 79936, 20763, 08925, 01002, 77350 ####[facility]3000 [facility].[address] ABS NEUTROPHILS 4.2 10*3/uL Normal 1.6-7.[address] [facility] Comment on above: Performed By: #### 4 1000, 04745, 66317, 85583, 91734, 66420 ####[facility]3000 [facility].[address] Basophils Auto #/vol (Bld) 0.2 % Normal 0.0-1.[address] [facility] Comment on above: Performed By: #### 4 1000, 78130, 34039, 12557, 18730, 33568 ####[facility] Eosinophils Auto #/vol (Bld) 0.1 10*3/uL Normal 0.0-0.[address] [facility] Comment on above: Performed By: #### 4 1000, 38589, 91679, 29565, 70981, 01385 ####[facility] Eosinophils/100 WBC Auto (Bld) 1.5 % Normal 0.0-6.[address] [facility] Comment on above: Performed By: #### 4 1000, 96905, 82787, 42189, 07396, 48935 ####[facility] [facility] [facility] Erythrocyte distribution width Auto Ratio (RBC) 13.4 % Normal 11.5-15.[address] [facility] Comment on above: Performed By: #### 4 1000, 12457, 37640, 66376, 08091, 37086 ####[facility] Hematocrit Auto Volume Fraction (Bld) 44.9 % Normal 36.0-45.0 [facility] Comment on above: Performed By: #### 4 1000, 37392, 50182, 33069, 40268, 01572 ####[facility] Hemoglobin mass conc (Bld) 14.9 g/dL Normal 12.0-15.[address] [facility] Comment on above: Performed By: #### 4 1000, 17213, 89399, 68143, 17660, 11244 ####[facility]3000 [facility].[address] IMMATURE GRANS 0.2 % Normal 0.0-1.0 [facility] Comment on above: Performed By: #### 4 1000, 09470, 71607, 00329, 93315, 64680 ####[facility]3000 [facility].[address] Lymphocytes Auto #/vol (Bld) 1.1 10*3/uL Low 1.2-4.[address] [facility] Comment on above: Performed By: #### 4 1000, 21737, 08728, 67857, 32154, 61682 ####[facility]3000 [facility].[address] Lymphocytes/100 WBC Auto (Bld) 17.4 % Low 20.0-45.[address] [facility] Comment on above: Performed By: #### 4 1000, 84012, 28197, 64984, 33590, 79643 ####[facility]3000 [facility].[address] MCH Auto Entitic mass (RBC) 29.2 pg Normal 27.0-33.[address] [facility] Comment on above: Performed By: #### 4 1000, 01039, 53569, 35210, 13012, 10951 ####[facility]3000 [facility].[address] MCHC Auto mass conc (RBC) 33.2 g/dL Normal 32.0-35.[address] [facility] Comment on above: Performed By: #### 4 1000, 35276, 90644, 26006, 97868, 03440 ####[facility] MCV Auto Entitic volume (RBC) 87.9 fL Normal 82.0-98.[address] [facility] Comment on above: Performed By: #### 4 1000, 36040, 92819, 51403, 21848, 14693 ####[facility]3000 [facility].[address] Monocytes Auto #/vol (Bld) 0.7 10*3/uL Normal 0.1-1.0 [facility] Comment on above: Performed By: #### 4 1000, 74805, 88501, 60805, 45539, 51429 ####[facility].[address] MONOS 11.3 % Normal 5.0-12.[address] [facility] Comment on above: Performed By: #### 4 1000, 09439, 64247, 67706, 30205, 68319 ####[facility]3000 [facility].[address] Neutrophils/100 WBC Auto (Bld) 69.4 % Normal 40.0-72.[address] [facility] Comment on above: Performed By: #### 4 1000, 12193, 65767, 03689, 11295, 06703 ####[facility]3000 [facility].[address] Nucleated RBC/100 WBC Ratio (Bld) 0 % Normal 0-[address] [facility] Comment on above: Performed By: #### 4 1000, 30888, 19628, 88032, 09813, 50936 ####[facility]3000 [facility].[address] PLAT CNT 198 10*3/uL Normal 150-400 [facility] Comment on above: Performed By: #### 4 1000, 69119, 16872, 77927, 03183, 67999 ####[facility]3000 [facility].[address] RBC Auto #/vol (Bld) 5.11 10*6/uL High 3.80-5.00 [facility] Comment on above: Performed By: #### 4 1000, 95935, 91702, 24065, 79558, 55015 ####[facility].[address] WBC Auto #/vol (Bld) 6.0 10*3/uL Normal 4.0-10.[address] [facility] Comment on above: Performed By: #### 4 1000, 50417, 47348, 40103, 73332, 16010 ####[facility] COMP METABOLIC PANELon 06-20 Albumin mass conc 4.4 g/dL Normal 3.5-5.7 [facility] Comment on above: Performed By: #### 4 1000, 92577, 38676, 59214, 91447, 39949 ####[facility].[address] ALKALINE PHOSPH 133 IU/L High 34-104 [facility] Comment on above: Performed By: #### 4 1000, 22100, 28865, 30560, 42988, 29079 ####[facility].[address] ALT enzyme act/vol 16 U/L Normal 7-52 [facility] Comment on above: Performed By: #### 4 1000, 08006, 28682, 49912, 09320, 01446 ####[facility] AST enzyme act/vol 21 U/L Normal 13-39 [facility] Comment on above: Performed By: #### 4 1000, 84672, 30825, 44908, 48072, 50041 ####[facility] Bilirubin mass conc 0.8 mg/dL Normal 0.3-1.0 [facility] Comment on above: Performed By: #### 4 1000, 49992, 84483, 16901, 23639, 80263 ####[facility] [place] [address], [place] Calcium mass conc 10.0 mg/dL Normal 8.6-10.3 [facility] Comment on above: Performed By: #### 4 1000, 32789, 71245, 43091, 58975, 44092 ####[facility] [place] [address], [place] Chloride molar conc 106 mmol/L Normal 98-107 [facility] Comment on above: Performed By: #### 4 1000, 96148, 91554, 70513, 15889, 31198 ####[facility] [place] [address], [place] CO2 molar conc 27 mmol/L Normal 21-31 The [facility] Comment on above: Performed By: #### 4 1000, 50694, 22465, 54197, 12344, 72982 ####[facility] [place] [address], [place] Creatinine mass conc 0.74 mg/dL Normal 0.60-1.[address] [facility] Comment on above: Performed By: #### 4 1000, 04716, 40048, 15142, 01037, 33524 ####[facility] [place] [address], [place] GFR/1.73 sq M predicted among blacks MDRD vol rate/area (S/P/Bld) mL/min/{1.73_m2} Normal >60 The [facility] Comment on above: Performed By: #### 4 1000, 34643, 96487, 01667, 47933, 68455 ####[facility] [place] [address], [place] GFR/1.73 sq M predicted among non-blacks MDRD vol rate/area (S/P/Bld) mL/min/{1.73_m2} Normal >60 The [facility] Comment on above: Performed By: #### 4 1000, 99149, 44088, 40813, 28846, 94332 ####[facility] [place] [address], [facility] Glucose mass conc 95 mg/dL Normal 70-100 [facility] Comment on above: Performed By: #### 4 1000, 14605, 07633, 42435, 64614, 98390 ####[facility] [place] [address], [facility] Potassium molar conc 3.8 mmol/L Normal 3.5-5.[address] [facility] Comment on above: Performed By: #### 4 1000, 61891, 14913, 56649, 51765, 08221 ####[facility] [place] [address], [facility] Protein mass conc 7.3 g/dL Normal 6.0-8.3 [facility] Comment on above: Performed By: #### 4 1000, 43737, 90971, 18222, 85350, 59467 ####[facility] [place] [address], [facility] Sodium molar conc 137 mmol/L Normal 136-145 [facility] Comment on above: Performed By: #### 4 1000, 26986, 41356, 81541, 87786, 35832 ####[facility] [place] [address], [facility] Urea nitrogen mass conc 16 mg/dL Normal 7-[address] [facility] Comment on above: Performed By: #### 4 1000, 22903, 63637, 65832, 72864, 27087 ####[facility] [place] [address], [facility] DIRECT BILIon 06-20-2017 Bilirubin.direct mass conc 0.1 mg/dL Normal 0.0-0.[address] [facility] Comment on above: Performed By: #### 4 1000, 89396, 31581, 21275, 76256, 82181 ####[facility] EVEROLIMUS 80420ow 8 EVEROLIMUS 6.7 ng/mL Normal [facility] Comment on above: Result Comment: Ther [...] the transplantcenter.Test developed and characteristics determined by [facility]. See Compliance Statement B: [employer]/CSPerformed by [employer],[address] [place] [address] gfw.[employer], Leonid Antonio MD - Lab. Director LIPID PROFILEon 06-20-2017 Cholesterol in HDL mass conc 45 mg/dL Normal - [facility] Comment on above: Result Comment: Slig ht variation in normal range could be due to gender and/or age.HDL CHOLESTEROL REFERENCE RANGE:20 years and older Cardiovascular Risk> or =60 mg/dL [id number] TO 59 mg/dL Low Risk<40 mg/dL High Risk Performed By: #### 4 1000, 57616, 13585, 87213, 31507, 31182 ####[facility] [place] [address], [facility] Cholesterol in LDL mass conc 58 mg/dL Normal 0-[address] [facility] Comment on above: Result Comment: LDL IS A CALCULATIONLDL IS ONLY VALID IF THE TRIG IS LESS THAN 400. Performed By: #### 4 1000, 27300, 19894, 01724, 85715, 15561 ####[facility] [place] [address], [facility] Cholesterol mass conc 126 mg/dL Normal 120-[address] [facility] Comment on above: Result Comment: CHOL ESTEROL REFERENCE RANGE:20 YEARS AND OLDER CARDIOVASCULAR RISKLess than 200 mg/dl Low [id number] to 239 mg/dl Borderline Qdjb318 mg/dl and greater High Risk Performed By: #### 4 1000, 48693, 40702, 87279, 34528, 45632 ####[facility] [place] [address], [facility] Cholesterol.total/Cho lesterol in HDL mass ratio 2.8 {ratio} Normal .0-4.[address] [facility] Comment on above: Performed By: #### 4 1000, 39413, 81165, 18197, 82191, 65714 ####[facility] [place] [address], [facility] NON-HDL CHOLESTEROL 81 mg/dL Normal The [facility] Comment on above: Performed By: #### 4 1000, 78217, 32305, 55884, 57595, 18355 ####[facility] [place] [address], [facility] Triglyceride mass conc 113 mg/dL Normal 40-[address] [facility] Comment on above: Result Comment: TRIG LYCERIDE REFERENCE RANGE:20 YEARS AND OLDER CARDIOVASCULAR RISKLESS THAN 150 mg/dl LOW [id number] TO 199 mg/dl BORDERLINE [id number] mg/dl AND GREATER HIGH RISK Performed By: #### 4 1000, 00130, 69711, 27168, 13375, 38824 ####[facility] VLDL CHOL 23 mg/dL Normal 0-[address] [facility] Comment on above: Performed By: #### 4 1000, 22242, 90992, 37627, 91970, 37556 ####[facility] MAGNESIUM BLOODon 06-20-2017 Magnesium mass conc 1.9 mg/dL Normal 1.9-2.7 The [facility] Comment on above: Performed By: #### 4 1000, 69025, 90388, 21728, 08645, 58055 ####[facility] [facility].[address] PHOSPHORUS BLOODon 8 Phosphate mass conc 3.1 mg/dL Normal 2.5-5.0 [facility] Comment on above: Performed By: #### 4 1000, 10273, 61846, 82436, 86793, 03580 ####[facility]3000 [facility].[address] TACROLIMUSon 06-20-2017 Tacrolimus mass conc (Bld) 4.2 ng/mL Low 5.0-20.[address] [facility] Comment on above: Result Comment: The [employer] Tacrolimus assay is a delayed one-step immunoassayfor the quantitative determination of tacrolimus in human whole bloodusing the chemiluminescent microparticle immunoassay (CMIA) technologywith flexible assay protocols, referred to as Chemiflex. Performed By: #### 4 1000, 96189, 71224, 34092, 94136, 15203 ####[facility]3000 [facility].[address] URIC ACID BLOODon 06-20-2017 Urate mass conc 4.3 mg/dL Normal 2.3-6.6 [facility] Comment on above: Performed By: #### 4 1000, 77441, 54442, 66833, 54564, 84970 ####[facility]3000 [facility].[address] BK VIRUS QUANTITATION PCR BL OODon 05-27-2017 BKV QUANT PCR Not detected Normal [facility] Comment on above: Result Comment: Meth od: BK virus was measured by quantitative polymerase chain reactionusing a TaqMan probe targeting the polyomavirus BK [employer]-1 gene.The lower limit of quantitation of the assay is 500 copies of BK genomeper milliliter of plasma or urine, and any detectable BK DNA below thatlevel is reported as: Detected, <500 copies/ml. Serial BK virusmeasurement can be used to monitor disease activity. (Reference:Kelsie vaughanl. J CLIN MICRO 2004; 42:2809-5666).This test was developed and its performance characteristics determinedby the [facility] Molecular [facility]. It has not been approvedby the [place] Food and Drug Administration. However, such approval is notrequired for clinical implementation, and test results have been shownto be clinically useful. This laboratory is CAP accredited and CLIAcertified to perform high complexity testing. Performed By: #### 4 1000, 49122, 68699, 51454, 47523, 38586 ####[facility]3000 [facility].[address] LOG 10 COPIES Not detected Normal [facility] Comment on above: Performed By: #### 4 1000, 03577, 22846, 82481, 54372, 61056 ####[facility]3000 [facility].[address] CBC W/DIFFon 05-27-2017 ABS BASOPHILS 0.0 10*3/uL Normal 0.0-0.2 The [facility] Comment on above: Performed By: #### 4 1000, 82612, 48476, 99896, 75146, 95810 ####[facility]3000 [facility].[address] ABS IMM GRANS 0.0 10*3/uL Normal 0.0-0.2 [facility] Comment on above: Performed By: #### 4 1000, 90359, 30116, 98030, 37245, 31764 ####[facility] [place] [address], [facility] ABS NEUTROPHILS 4.8 10*3/uL Normal 1.6-7.[address] [facility] Comment on above: Performed By: #### 4 1000, 19111, 42004, 27541, 60383, 45615 ####[facility] [place] [address], [facility] Basophils Auto #/vol (Bld) 0.0 % Normal 0.0-1.[address] [facility] Comment on above: Performed By: #### 4 1000, 16284, 80151, 30377, 72386, 71242 ####[facility] [place] [address], [facility] Eosinophils Auto #/vol (Bld) 0.1 10*3/uL Normal 0.0-0.[address] [facility] Comment on above: Performed By: #### 4 1000, 49874, 19984, 34612, 08157, 86681 ####[facility] Eosinophils/100 WBC Auto (Bld) 1.1 % Normal 0.0-6.[address] [facility] Comment on above: Performed By: #### 4 1000, 98747, 50575, 65492, 14269, 48710 ####[facility] Erythrocyte distribution width Auto Ratio (RBC) 13.5 % Normal 11.5-15.[address] [facility] Comment on above: Performed By: #### 4 1000, 07156, 41407, 96465, 88570, 19357 ####[facility] Hematocrit Auto Volume Fraction (Bld) 46.1 % High 36.0-45.0 [facility] Comment on above: Performed By: #### 4 1000, 84251, 79755, 12152, 69875, 51676 ####[facility] Hemoglobin mass conc (Bld) 15.0 g/dL Normal 12.0-15.[address] [facility] Comment on above: Performed By: #### 4 1000, 89863, 88080, 44775, 52385, 89073 ####[facility]3000 [facility].[address] IMMATURE GRANS 0.3 % Normal 0.0-1.0 [facility] Comment on above: Performed By: #### 4 1000, 27215, 73748, 61829, 17043, 32601 ####[facility]3000 [facility].[address] Lymphocytes Auto #/vol (Bld) 1.0 10*3/uL Low 1.2-4.[address] [facility] Comment on above: Performed By: #### 4 1000, 64250, 19302, 55167, 57150, 80134 ####[facility]3000 [facility].[address] Lymphocytes/100 WBC Auto (Bld) 15.7 % Low 20.0-45.[address] [facility] Comment on above: Performed By: #### 4 1000, 39325, 42159, 82146, 95108, 82546 ####[facility] [facility].[address] MCH Auto Entitic mass (RBC) 28.8 pg Normal 27.0-33.[address] [facility] Comment on above: Performed By: #### 4 1000, 77136, 31418, 07010, 48276, 57615 ####[facility] [place] [address].[address] MCHC Auto mass conc (RBC) 32.5 g/dL Normal 32.0-35.[address] [facility] Comment on above: Performed By: #### 4 1000, 67808, 82406, 25397, 50987, 78892 ####[facility] [facility].[address] MCV Auto Entitic volume (RBC) 88.7 fL Normal 82.0-98.[address] [facility] Comment on above: Performed By: #### 4 1000, 90531, 42260, 33908, 17324, 52213 ####[place] [address] [facility].[address] Monocytes Auto #/vol (Bld) 0.8 10*3/uL Normal 0.1-1.[address] [facility] Comment on above: Performed By: #### 4 1000, 57435, 28195, 84867, 92818, 67050 ####[facility]3000 [facility].[address] MONOS 11.4 % Normal 5.0-12.[address] [facility] Comment on above: Performed By: #### 4 1000, 80323, 54468, 29371, 67967, 81267 ####[place] [address] [facility].[address] Neutrophils/100 WBC Auto (Bld) 71.5 % Normal 40.0-72.[address] [facility] Comment on above: Performed By: #### 4 1000, 73763, 45787, 17791, 00519, 14804 ####[facility]3000 [facility].[address] Nucleated RBC/100 WBC Ratio (Bld) 0 % Normal 0-[address] [facility] Comment on above: Performed By: #### 4 1000, 25337, 18866, 91483, 87203, 19644 ####[facility] PLAT CNT 199 10*3/uL Normal 150-400 [facility] Comment on above: Performed By: #### 4 1000, 71588, 74703, 98894, 14925, 12893 ####[facility] RBC Auto #/vol (Bld) 5.20 10*6/uL High 3.80-5.00 [facility] Comment on above: Performed By: #### 4 1000, 03400, 66901, 30083, 81424, 72593 ####[facility] WBC Auto #/vol (Bld) 6.6 10*3/uL Normal 4.0-10.[address] [facility] Comment on above: Performed By: #### 4 1000, 91494, 76425, 95150, 07706, 98858 ####[facility] COMP METABOLIC PANELon 05-27 Albumin mass conc 4.6 g/dL Normal 3.5-5.7 [facility] Comment on above: Performed By: #### 4 1000, 23425, 02142, 45357, 43361, 64195 ####[facility] ALKALINE PHOSPH 105 IU/L High 34-104 [facility] Comment on above: Performed By: #### 4 1000, 58759, 49713, 26597, 20211, 44867 ####[facility] ALT enzyme act/vol 20 U/L Normal 7-52 [facility] Comment on above: Performed By: #### 4 1000, 51211, 54457, 87468, 37024, 32870 ####[facility] [place] [address], [facility] AST enzyme act/vol 23 U/L Normal 13-39 [facility] Comment on above: Performed By: #### 4 1000, 34117, 96836, 56606, 37859, 68619 ####[facility] [place] [address], [place] Bilirubin mass conc 0.6 mg/dL Normal 0.3-1.0 The [facility] Comment on above: Performed By: #### 4 1000, 00323, 52242, 44914, 33012, 36661 ####[facility] [place] [address], [place] Calcium mass conc 9.8 mg/dL Normal 8.6-10.3 [facility] Comment on above: Performed By: #### 4 1000, 72730, 23280, 46597, 64278, 99734 ####[facility] [place] [address], [place] Chloride molar conc 106 mmol/L Normal 98-107 [facility] Comment on above: Performed By: #### 4 1000, 67481, 14531, 56110, 41084, 04501 ####[facility] [place] [address], [place] CO2 molar conc 30 mmol/L Normal 21-31 [facility] Comment on above: Performed By: #### 4 1000, 11344, 42843, 30567, 31393, 27916 ####[facility] [place] [address], [place] Creatinine mass conc 0.80 mg/dL Normal 0.60-1.[address] [facility] Comment on above: Performed By: #### 4 1000, 07492, 41415, 80734, 17347, 79545 ####[facility] [place] [address], [facility] GFR/1.73 sq M predicted among blacks MDRD vol rate/area (S/P/Bld) mL/min/{1.73_m2} Normal >60 The [facility] Comment on above: Performed By: #### 4 1000, 40621, 78506, 27162, 81374, 75258 ####[facility] [place] [address], [facility] GFR/1.73 sq M predicted among non-blacks MDRD vol rate/area (S/P/Bld) mL/min/{1.73_m2} Normal >60 The [facility] Comment on above: Performed By: #### 4 1000, 82325, 55372, 10328, 84924, 47763 ####[facility] [place] [address], [facility] Glucose mass conc 90 mg/dL Normal 70-100 [facility] Comment on above: Performed By: #### 4 1000, 38444, 06518, 61749, 58046, 69378 ####[facility] [place] [address], [facility] Potassium molar conc 4.0 mmol/L Normal 3.5-5.[address] [facility] Comment on above: Performed By: #### 4 1000, 14233, 56279, 38723, 58023, 37635 ####[facility] [place] [address], [facility] Protein mass conc 6.8 g/dL Normal 6.0-8.3 [facility] Comment on above: Performed By: #### 4 1000, 14586, 94050, 98454, 98995, 00441 ####[facility] [place] [address], [place] Sodium molar conc 138 mmol/L Normal 136-145 [facility] Comment on above: Performed By: #### 4 1000, 46371, 64483, 94489, 70235, 52435 ####[facility]3000 [facility].[address] Urea nitrogen mass conc 14 mg/dL Normal 7-[address] [facility] Comment on above: Performed By: #### 4 1000, 25178, 31639, 22215, 32585, 21792 ####[facility].[address] DIRECT BILIon 05-27-2017 Bilirubin.direct mass conc 0.1 mg/dL Normal 0.0-0.[address] [facility] Comment on above: Performed By: #### 4 1000, 62287, 73401, 86582, 50568, 25938 ####[facility]3000 [facility].[address] EVEROLIMUS 34476yz 8 EVEROLIMUS 5.6 ng/mL Normal [facility] Comment on above: Result Comment: Ther [...] the transplantcenter.Test developed and characteristics determined by [facility]. See Compliance Statement B: [email or web address] by [employer],[address] [place] [address] htd.[employer], Leonid Antonio MD - Lab. Director HEMOGLOBIN A1Con 05-27-2017 Glucose mass conc 108 mg/dL Normal 70-126 [facility] Comment on above: Performed By: #### 4 1000, 94693, 13530, 80768, 87682, 63336 ####[facility] Hemoglobin A1c/Hemoglobin.total mass fraction (Bld) 5.4 % Normal 4.0-6.0 The [facility] Comment on above: Performed By: #### 4 1000, 56612, 85505, 38429, 30183, 56119 ####[facility] LIPID PROFILEon 05-27-2017 Cholesterol in HDL mass conc 39 mg/dL Normal 23-[address] [facility] Comment on above: Result Comment: Slig ht variation in normal range could be due to gender and/or age.HDL CHOLESTEROL REFERENCE RANGE:20 years and older Cardiovascular Risk> or =60 mg/dL Drutrqqnl41 TO 59 mg/dL Low Risk<40 mg/dL High Risk Performed By: #### 4 1000, 38100, 26211, 52845, 14604, 56265 ####[facility] Cholesterol in LDL mass conc 52 mg/dL Normal 0-[address] [facility] Comment on above: Result Comment: LDL IS A CALCULATIONLDL IS ONLY VALID IF THE TRIG IS LESS THAN 400. Performed By: #### 4 1000, 69412, 94461, 68335, 58663, 02445 ####[facility] [place] [address], [facility] Cholesterol mass conc 117 mg/dL Low 120-[address] [facility] Comment on above: Result Comment: CHOL ESTEROL REFERENCE RANGE:20 YEARS AND OLDER CARDIOVASCULAR RISKLess than 200 mg/dl Low Ftno242 to 239 mg/dl Borderline Yfdp384 mg/dl and greater High Risk Performed By: #### 4 1000, 00611, 56127, 54290, 04864, 55107 ####[facility] [facility] Cholesterol.total/Cho lesterol in HDL mass ratio 3.0 {ratio} Normal .0-4.[address] [facility] Comment on above: Performed By: #### 4 1000, 94177, 08567, 83789, 57653, 18210 ####[facility]3000 [facility].[address] NON-HDL CHOLESTEROL 78 mg/dL Normal The [facility] Comment on above: Performed By: #### 4 1000, 35836, 75438, 63611, 18553, 01878 ####[facility]3000 [facility].[address] Triglyceride mass conc 131 mg/dL Normal 40-[address] [facility] Comment on above: Result Comment: TRIG LYCERIDE REFERENCE RANGE:20 YEARS AND OLDER CARDIOVASCULAR RISKLESS THAN 150 mg/dl LOW FQST134 TO 199 mg/dl BORDERLINE PIVV351 mg/dl AND GREATER HIGH RISK Performed By: #### 4 1000, 98949, 15860, 22655, 91587, 15056 ####[facility]3000 [facility].[address] VLDL CHOL 26 mg/dL Normal 0-[address] [facility] Comment on above: Performed By: #### 4 1000, 66857, 12944, 09342, 87943, 74060 ####[facility]3000 [facility].[address] MAGNESIUM BLOODon 05-27-2017 Magnesium mass conc 2.1 mg/dL Normal 1.9-2.7 [facility] Comment on above: Performed By: #### 4 1000, 59541, 71671, 53324, 51063, 25651 ####[facility] [facility] [place] [address], [facility] PHOSPHORUS BLOODon 8 Phosphate mass conc 3.5 mg/dL Normal 2.5-5.0 [facility] Comment on above: Performed By: #### 4 1000, 33646, 12660, 10448, 78014, 00840 ####[facility] [facility].[address] TACROLIMUSon 05-27-2017 Tacrolimus mass conc (Bld) 4.4 ng/mL Low 5.0-20.[address] [facility] Comment on above: Result Comment: The [employer] Tacrolimus assay is a delayed one-step immunoassayfor the quantitative determination of tacrolimus in human whole bloodusing the chemiluminescent microparticle immunoassay (CMIA) technologywith flexible assay protocols, referred to as Chemiflex. Performed By: #### 4 1000, 55874, 62759, 66442, 63308, 93545 ####[facility] [facility].[address] URIC ACID BLOODon 05-27-2017 Urate mass conc 4.6 mg/dL Normal 2.3-6.6 [facility] Comment on above: Performed By: #### 4 1000, 59936, 72985, 63119, 16887, 11044 ####[facility] [facility].[address] CBC W/DIFFon 04-29-2017 ABS BASOPHILS 0.0 10*3/uL Normal 0.0-0.2 The [facility] Comment on above: Performed By: #### 4 1000, 18169, 78857, 67947, 52181, 41105 ####[facility] [facility].[address] ABS IMM GRANS 0.0 10*3/uL Normal 0.0-0.2 [facility] Comment on above: Performed By: #### 4 1000, 77538, 62403, 51757, 40685, 30811 ####[facility] [address], [facility] ABS NEUTROPHILS 4.6 10*3/uL Normal 1.6-7.[address] [facility] Comment on above: Performed By: #### 4 1000, 01614, 65769, 66435, 60343, 00909 ####[facility] Basophils Auto #/vol (Bld) 0.3 % Normal 0.0-1.[address] [facility] Comment on above: Performed By: #### 4 1000, 68513, 75775, 93500, 48962, 57118 ####[facility] [place] [address], [facility] Eosinophils Auto #/vol (Bld) 0.1 10*3/uL Normal 0.0-0.[address] [facility] Comment on above: Performed By: #### 4 1000, 13973, 81380, 10212, 14728, 77885 ####[facility] Eosinophils/100 WBC Auto (Bld) 1.7 % Normal 0.0-6.[address] [facility] Comment on above: Performed By: #### 4 1000, 46372, 52045, 32567, 69502, 32207 ####[facility] Erythrocyte distribution width Auto Ratio (RBC) 13.7 % Normal 11.5-15.[address] [facility] Comment on above: Performed By: #### 4 1000, 76437, 33798, 21108, 93393, 00765 ####[facility] Hematocrit Auto Volume Fraction (Bld) 45.0 % Normal 36.0-45.0 [facility] Comment on above: Performed By: #### 4 1000, 26372, 38069, 85645, 02056, 93066 ####[facility] [facility].[address] Hemoglobin mass conc (Bld) 14.9 g/dL Normal 12.0-15.[address] [facility] Comment on above: Performed By: #### 4 1000, 05888, 88371, 39107, 99476, 23802 ####[facility] IMMATURE GRANS 0.3 % Normal 0.0-1.0 [facility] Comment on above: Performed By: #### 4 1000, 98379, 93158, 48617, 09334, 21705 ####[facility] [facility].[address] Lymphocytes Auto #/vol (Bld) 0.9 10*3/uL Low 1.2-4.[address] [facility] Comment on above: Performed By: #### 4 1000, 22143, 43704, 08136, 10249, 93482 ####[facility] [facility].[address] Lymphocytes/100 WBC Auto (Bld) 14.2 % Low 20.0-45.[address] [facility] Comment on above: Performed By: #### 4 1000, 09850, 23719, 64165, 13896, 31838 ####[facility] [facility].[address] MCH Auto Entitic mass (RBC) 29.4 pg Normal 27.0-33.[address] [facility] Comment on above: Performed By: #### 4 1000, 30334, 73026, 64716, 00715, 79535 ####[facility] MCHC Auto mass conc (RBC) 33.1 g/dL Normal 32.0-35.[address] [facility] Comment on above: Performed By: #### 4 1000, 79138, 24429, 76372, 67642, 31154 ####[facility] MCV Auto Entitic volume (RBC) 88.8 fL Normal 82.0-98.[address] [facility] Comment on above: Performed By: #### 4 1000, 31270, 80461, 65063, 97215, 05526 ####[facility] Monocytes Auto #/vol (Bld) 0.8 10*3/uL Normal 0.1-1.[address] [facility] Comment on above: Performed By: #### 4 1000, 34400, 25702, 17942, 85990, 58011 ####[facility] MONOS 12.2 % High 5.0-12.[address] [facility] Comment on above: Performed By: #### 4 1000, 34360, 38932, 08530, 62559, 71212 ####[facility] Neutrophils/100 WBC Auto (Bld) 71.3 % Normal 40.0-72.[address] [facility] Comment on above: Performed By: #### 4 1000, 18796, 58694, 80995, 64075, 02123 ####[facility] Nucleated RBC/100 WBC Ratio (Bld) 0 % Normal 0-[address] [facility] Comment on above: Performed By: #### 4 1000, 56607, 12551, 43723, 10360, 65123 ####[facility] PLAT CNT 215 10*3/uL Normal 150-400 [facility] Comment on above: Performed By: #### 4 1000, 53019, 74288, 22000, 76469, 16792 ####[facility] RBC Auto #/vol (Bld) 5.07 10*6/uL High 3.80-5.00 [facility] Comment on above: Performed By: #### 4 1000, 03339, 86566, 58937, 40128, 80760 ####[facility] [facility].[address] WBC Auto #/vol (Bld) 6.5 10*3/uL Normal 4.0-10.[address] [facility] Comment on above: Performed By: #### 4 1000, 38094, 68961, 55407, 34113, 10374 ####[facility] [facility].[address] COMP METABOLIC PANELon 04-29 Albumin mass conc 4.4 g/dL Normal 3.5-5.7 [facility] Comment on above: Performed By: #### 4 1000, 52797, 95511, 93847, 94237, 79453 ####[facility] [facility].[address] ALKALINE PHOSPH 114 IU/L High 34-104 [facility] Comment on above: Performed By: #### 4 1000, 18697, 94870, 70548, 84328, 15461 ####[facility] [facility].[address] ALT enzyme act/vol 15 U/L Normal 7-52 The [facility] Comment on above: Performed By: #### 4 1000, 29525, 41211, 37627, 38223, 40891 ####[facility] [place] [address], [place] AST enzyme act/vol 19 U/L Normal 13-39 The [facility] Comment on above: Performed By: #### 4 1000, 64692, 73268, 82063, 54969, 25468 ####[facility] [place] [address], [place] Bilirubin mass conc 0.7 mg/dL Normal 0.3-1.0 [facility] Comment on above: Performed By: #### 4 1000, 94846, 08207, 65577, 42751, 08526 ####[facility] [place] [address], [place] Calcium mass conc 9.6 mg/dL Normal 8.6-10.3 The [facility] Comment on above: Performed By: #### 4 1000, 71380, 48897, 11516, 35146, 67126 ####[facility] [place] [address], [place] Chloride molar conc 103 mmol/L Normal 98-107 [facility] Comment on above: Performed By: #### 4 1000, 03187, 08200, 12889, 38111, 46867 ####[facility] [place] [address], [place] CO2 molar conc 29 mmol/L Normal 21-31 The [facility] Comment on above: Performed By: #### 4 1000, 70379, 79393, 31791, 92276, 80542 ####[facility] [place] [address], [place] Creatinine mass conc 0.79 mg/dL Normal 0.60-1.[address] [facility] Comment on above: Performed By: #### 4 1000, 48149, 37184, 09832, 36505, 22205 ####[facility].[place] [address], [facility] GFR/1.73 sq M predicted among blacks MDRD vol rate/area (S/P/Bld) mL/min/{1.73_m2} Normal >60 The [facility] Comment on above: Performed By: #### 4 1000, 99845, 62425, 23565, 57827, 72931 ####[facility] [place] [address], [facility] GFR/1.73 sq M predicted among non-blacks MDRD vol rate/area (S/P/Bld) mL/min/{1.73_m2} Normal >60 The [facility] Comment on above: Performed By: #### 4 1000, 09274, 39849, 50286, 97996, 69024 ####[facility] [place] [address], [facility] Glucose mass conc 90 mg/dL Normal 70-100 The [facility] Comment on above: Performed By: #### 4 1000, 48464, 14182, 49976, 19076, 65423 ####[facility] [place] [address], [facility] Potassium molar conc 3.8 mmol/L Normal 3.5-5.[address] [facility] Comment on above: Performed By: #### 4 1000, 91354, 29885, 43016, 51550, 49076 ####[facility] [address], [facility] Protein mass conc 7.2 g/dL Normal 6.0-8.3 The [facility] Comment on above: Performed By: #### 4 1000, 85606, 96840, 11786, 01701, 13521 ####[facility] [address], [facility] Sodium molar conc 140 mmol/L Normal 136-145 The [facility] Comment on above: Performed By: #### 4 1000, 82090, 14243, 79720, 96908, 62244 ####[facility].[address] Urea nitrogen mass conc 15 mg/dL Normal 7-[address] [facility] Comment on above: Performed By: #### 4 1000, 35694, 86859, 57228, 20815, 35356 ####[facility] [facility].[address] DIRECT BILIon 04-29-2017 Bilirubin.direct mass conc 0.1 mg/dL Normal 0.0-0.[address] [facility] Comment on above: Order Comment: Liver Battery conflicts with Comprehensive Metabolic Panel. Liver Battery canceled and Direct Bilirubin added. Performed By: #### 4 1000, 03969, 85222, 27854, 27472, 40685 ####[facility] [facility].[address] EVEROLIMUS [id number] 8 EVEROLIMUS 5.4 ng/mL Normal [facility] Comment on above: Result Comment: Ther [...] determined by [facility]. See Compliance Statement B: [employer]/CSPerformed by [employer],[address] [place] [address] bpw.[employer], Leonid Antonio MD - Lab. Director LIPID PROFILEon 04-29-2017 Cholesterol in HDL mass conc 49 mg/dL Normal 23-[address] [facility] Comment on above: Result Comment: Slig ht variation in normal range could be due to gender and/or age.HDL CHOLESTEROL REFERENCE RANGE:20 years and older Cardiovascular Risk> or =60 mg/dL Cvajbekkc34 TO 59 mg/dL Low Risk<40 mg/dL High Risk Performed By: #### 4 1000, 57635, 34425, 00076, 39865, 51603 ####[facility] [place] [address], [place] Cholesterol in LDL mass conc 52 mg/dL Normal 0-[address] [facility] Comment on above: Result Comment: LDL IS A CALCULATIONLDL IS ONLY VALID IF THE TRIG IS LESS THAN 400. Performed By: #### 4 1000, 00828, 34778, 56264, 90588, 52226 ####[facility] [place] [address], [place] Cholesterol mass conc 122 mg/dL Normal 120-[address] [facility] Comment on above: Result Comment: CHOL ESTEROL REFERENCE RANGE:20 YEARS AND OLDER CARDIOVASCULAR RISKLess than 200 mg/dl Low Ydkc580 to 239 mg/dl Borderline Rkmf473 mg/dl and greater High Risk Performed By: #### 4 1000, 27221, 02565, 49592, 55231, 30926 ####[facility] [place] [address], [place] Cholesterol.total/Cho lesterol in HDL mass ratio 2.5 {ratio} Normal .0-4.[address] [facility] Comment on above: Performed By: #### 4 1000, 80744, 34825, 72581, 90583, 26246 ####[facility] [place] [address], [place] NON-HDL CHOLESTEROL 73 mg/dL Normal [facility] Comment on above: Performed By: #### 4 1000, 23362, 90055, 91902, 84395, 31963 ####[facility].[address] Triglyceride mass conc 106 mg/dL Normal 40-[address] [facility] Comment on above: Result Comment: TRIG LYCERIDE REFERENCE RANGE:20 YEARS AND OLDER CARDIOVASCULAR RISKLESS THAN 150 mg/dl LOW NJBG201 TO 199 mg/dl BORDERLINE FAUF348 mg/dl AND GREATER HIGH RISK Performed By: #### 4 1000, 00558, 81284, 51254, 51467, 64563 ####[facility] [facility].[address] VLDL CHOL 21 mg/dL Normal 0-[address] [facility] Comment on above: Performed By: #### 4 1000, 08007, 52930, 96744, 68813, 77162 ####[facility] MAGNESIUM BLOODon 04-29-2017 Magnesium mass conc 2.1 mg/dL Normal 1.9-2.7 [facility] Comment on above: Performed By: #### 4 1000, 00244, 81765, 47815, 16246, 33906 ####[facility] [facility].[address] PHOSPHORUS BLOODon 8 Phosphate mass conc 3.3 mg/dL Normal 2.5-5.0 [facility] Comment on above: Performed By: #### 4 1000, 83958, 04365, 11931, 46056, 55887 ####[facility] TACROLIMUSon 04-29-2017 Tacrolimus mass conc (Bld) 4.6 ng/mL Low 5.0-20.[address] [facility] Comment on above: Result Comment: The [employer] Tacrolimus assay is a delayed one-step immunoassayfor the quantitative determination of tacrolimus in human whole bloodusing the chemiluminescent microparticle immunoassay (CMIA) technologywith flexible assay protocols, referred to as Chemiflex. Performed By: #### 4 1000, 50752, 72950, 59943, 50650, 30238 ####[facility] [facility].[address] URIC ACID BLOODon 04-29-2017 Urate mass conc 4.6 mg/dL Normal 2.3-6.6 [facility] Comment on above: Performed By: #### 4 1000, 44677, 14695, 53145, 48078, 31353 ####[facility] [facility].[address] CBC W/DIFFon 03-27-2017 Basophils Auto #/vol (Bld) 0.2 % Normal 0.0-2.[address] [facility] Comment on above: Performed By: #### 4 1000, 37640, 50329, 37957, 37001, 57151 ####[facility] [facility].[address] Eosinophils/100 WBC Auto (Bld) 1.8 % Normal 0.0-5.[address] [facility] Comment on above: Performed By: #### 4 1000, 32187, 94172, 90585, 64242, 01588 ####[facility] [facility].[address] Erythrocyte distribution width Auto Ratio (RBC) 13.6 % Normal 11.5-16.[address] [facility] Comment on above: Performed By: #### 4 1000, 10628, 63870, 17619, 18302, 85285 ####[facility] [facility].[address] Hematocrit Auto Volume Fraction (Bld) 47.6 % Normal 36.0-48.0 The [facility] Comment on above: Performed By: #### 4 1000, 42698, 37061, 28083, 27993, 47395 ####[facility] [facility] [facility] Hemoglobin mass conc (Bld) 15.8 g/dL High 12.0-15.[address] [facility] Comment on above: Performed By: #### 4 1000, 09466, 13878, 01810, 03146, 50462 ####[facility] [facility] [facility].[address] Lymphocytes/100 WBC Auto (Bld) 14.5 % Low 20.0-40.[address] [facility] Comment on above: Performed By: #### 4 1000, 78556, 21059, 88535, 66906, 40187 ####[facility] [facility] [facility].[address] MCH Auto Entitic mass (RBC) 29.0 pg Normal 24.0-32.[address] [facility] Comment on above: Performed By: #### 4 1000, 45474, 85116, 27119, 23794, 67910 ####[facility] [facility] [facility].[address] MCHC Auto mass conc (RBC) 33.3 g/dL Normal 32.0-36.[address] [facility] Comment on above: Performed By: #### 4 1000, 62508, 28114, 12224, 28217, 52331 ####[facility] [facility].[address] MCV Auto Entitic volume (RBC) 87.4 fL Normal 80.0-100.[address] [facility] Comment on above: Performed By: #### 4 1000, 33200, 80851, 31703, 61186, 50787 ####[facility] [facility].[address] METHOD Normal RBC Morphology Normal The [facility] Comment on above: Performed By: #### 4 1000, 67778, 85762, 79344, 80732, 71260 ####[facility] [place] [address], [facility] MONOS 9.6 % High 2-[address] [facility] Comment on above: Performed By: #### 4 1000, 42129, 95817, 42699, 73347, 18107 ####[facility].[place] [address], [facility] Neutrophils/100 WBC Auto (Bld) 73.9 % High 50-[address] [facility] Comment on above: Performed By: #### 4 1000, 56958, 40851, 45208, 87938, 41577 ####[facility] [place] [address], [facility] PLAT CNT 228 Thou/mm3 Normal 100-400 The [facility] Comment on above: Performed By: #### 4 1000, 72104, 18061, 10508, 48908, 96510 ####[facility] [place] [address], [facility] RBC Auto #/vol (Bld) 5.45 mill/mm3 Normal 3.50-5.[address] [facility] Comment on above: Performed By: #### 4 1000, 19943, 92402, 91187, 53523, 09483 ####[facility] [place] [address], [facility] WBC Auto #/vol (Bld) 6.5 Thou/mm3 Normal 4.0-10.[address] [facility] Comment on above: Performed By: #### 4 1000, 40189, 24376, 04127, 54038, 89275 ####[facility] [place] [address], [facility] COMP METABOLIC PANELon 03-27 Albumin mass conc 4.7 g/dL Normal 3.5-5.7 The [facility] Comment on above: Performed By: #### 4 1000, 66912, 34903, 71200, 20228, 55868 ####[facility] ALKALINE PHOSPH 99 IU/L Normal 34-104 [facility] Comment on above: Performed By: #### 4 1000, 99868, 57315, 51505, 29152, 77962 ####[facility] ALT enzyme act/vol 19 U/L Normal 7-52 The [facility] Comment on above: Performed By: #### 4 1000, 72258, 83773, 95753, 75866, 42274 ####[facility] AST enzyme act/vol 21 U/L Normal 13-39 The [facility] Comment on above: Performed By: #### 4 1000, 27752, 47494, 21250, 47400, 11278 ####[facility] [place] [address], [facility] Bilirubin mass conc 0.6 mg/dL Normal 0.3-1.0 [facility] Comment on above: Performed By: #### 4 1000, 20366, 89664, 58928, 70032, 96975 ####[facility] [place] [address], [facility] Calcium mass conc 10.2 mg/dL Normal 8.6-10.3 The [facility] Comment on above: Performed By: #### 4 1000, 71633, 51161, 72019, 76372, 00426 ####[facility] [place] [address], [facility] Chloride molar conc 104 mmol/L Normal 98-107 [facility] Comment on above: Performed By: #### 4 1000, 01789, 50721, 52259, 99440, 44342 ####[facility] [place] [address], [facility] CO2 molar conc 28 mmol/L Normal 21-31 [facility] Comment on above: Performed By: #### 4 1000, 61558, 14960, 76458, 17957, 77544 ####[facility] [place] [address], [facility] Creatinine mass conc 0.78 mg/dL Normal 0.60-1.[address] [facility] Comment on above: Performed By: #### 4 1000, 50183, 08527, 85861, 80361, 88454 ####[facility] [place] [address], [facility] GFR/1.73 sq M predicted among blacks MDRD vol rate/area (S/P/Bld) mL/min/{1.73_m2} Normal >60 The [facility] Comment on above: Performed By: #### 4 1000, 88031, 93199, 62314, 93276, 54770 ####[facility] [place] [address], [facility] GFR/1.73 sq M predicted among non-blacks MDRD vol rate/area (S/P/Bld) mL/min/{1.73_m2} Normal >60 [facility] Comment on above: Performed By: #### 4 1000, 08109, 41945, 60389, 97316, 78110 ####[facility] [place] [address], [place] Glucose mass conc 87 mg/dL Normal 70-100 [facility] Comment on above: Performed By: #### 4 1000, 38306, 22433, 72619, 40489, 28781 ####[facility] [place] [address], [place] Potassium molar conc 4.1 mmol/L Normal 3.5-5.[address] [facility] Comment on above: Performed By: #### 4 1000, 14679, 27101, 08164, 33980, 72392 ####[facility] Protein mass conc 7.8 g/dL Normal 6.0-8.3 The [facility] Comment on above: Performed By: #### 4 1000, 89526, 31860, 62580, 30506, 45975 ####[facility] Sodium molar conc 139 mmol/L Normal 136-145 The [facility] Comment on above: Performed By: #### 4 1000, 37832, 57161, 53290, 96791, 55971 ####[facility] Urea nitrogen mass conc 19 mg/dL Normal 7-[address] [facility] Comment on above: Performed By: #### 4 1000, 60738, 57237, 04177, 21018, 15538 ####[facility] DIRECT BILIon 03-27-2017 Bilirubin.direct mass conc 0.1 mg/dL Normal 0.0-0.[address] [facility] Comment on above: Performed By: #### 4 1000, 34790, 16104, 41388, 35965, 18883 ####[facility] EVEROLIMUS [id number] EVEROLIMUS 5.3 ng/mL Normal The [facility] Comment on above: Result Comment: Ther [...] the transplantcenter.Test developed and characteristics determined by [employer]. See Compliance Statement B: [employer]/CSPerformed by [employer],[address] [place] [id number] eth.[employer], Leonid Antonio MD - Lab. Director LIPID PROFILEon 03-27-2017 Cholesterol in HDL mass conc 50 mg/dL Normal 23-[address] [facility] Comment on above: Result Comment: Slig ht variation in normal range could be due to gender and/or age.HDL CHOLESTEROL REFERENCE RANGE:20 years and older Cardiovascular Risk> or =60 mg/dL Noiqitlfy45 TO 59 mg/dL Low Risk<40 mg/dL High Risk Performed By: #### 4 1000, 76183, 19357, 50870, 15712, 57805 ####[facility] [facility].[address] Cholesterol in LDL mass conc 66 mg/dL Normal 0-[address] [facility] Comment on above: Result Comment: LDL IS A CALCULATIONLDL IS ONLY VALID IF THE TRIG IS LESS THAN 400. Performed By: #### 4 1000, 33761, 62330, 88685, 24391, 84779 ####[facility] [place] [address], [facility] [facility] Cholesterol mass conc 147 mg/dL Normal 120-[address] [facility] Comment on above: Result Comment: CHOL ESTEROL REFERENCE RANGE:20 YEARS AND OLDER CARDIOVASCULAR RISKLess than 200 mg/dl Low Dhtd681 to 239 mg/dl Borderline Fiej886 mg/dl and greater High Risk Performed By: #### 4 1000, 56393, 12377, 54886, 01971, 72600 ####[facility] [facility] [facility] Cholesterol.total/Cho lesterol in HDL mass ratio 2.9 {ratio} Normal .0-4.[address] [facility] Comment on above: Performed By: #### 4 1000, 18864, 49059, 39191, 65686, 59720 ####[facility]3000 [facility].[address] NON-HDL CHOLESTEROL 97 mg/dL Normal [facility] Comment on above: Performed By: #### 4 1000, 48066, 14104, 56724, 30479, 04545 ####[facility]3000 [facility].[address] Triglyceride mass conc 157 mg/dL High 40-[address] [facility] Comment on above: Result Comment: TRIG LYCERIDE REFERENCE RANGE:20 YEARS AND OLDER CARDIOVASCULAR RISKLESS THAN 150 mg/dl LOW CMOC520 TO 199 mg/dl BORDERLINE RDXT485 mg/dl AND GREATER HIGH RISK Performed By: #### 4 1000, 53405, 65630, 25298, 28256, 55098 ####[facility]3000 [facility].[address] VLDL CHOL 31 mg/dL Normal 0-[address] [facility] Comment on above: Performed By: #### 4 1000, 40471, 29214, 09032, 71640, 01081 ####[facility]3000 [facility].[address] MAGNESIUM BLOODon 03-27-2017 Magnesium mass conc 1.9 mg/dL Normal 1.9-2.7 [facility] Comment on above: Performed By: #### 4 1000, 87053, 99523, 44911, 51369, 16352 ####[facility]3000 [facility].[address] PHOSPHORUS BLOODon 7 Phosphate mass conc 3.4 mg/dL Normal 2.5-5.0 [facility] Comment on above: Performed By: #### 4 1000, 80490, 83759, 08549, 42688, 51399 ####[facility] TACROLIMUSon 03-27-2017 Tacrolimus mass conc (Bld) 3.7 ng/mL Low 5.0-20.[address] [facility] Comment on above: Result Comment: The [employer] Tacrolimus assay is a delayed one-step immunoassayfor the quantitative determination of tacrolimus in human whole bloodusing the chemiluminescent microparticle immunoassay (CMIA) technologywith flexible assay protocols, referred to as Chemiflex. Performed By: #### 4 1000, 84276, 77745, 98413, 57709, 19242 ####[facility] URIC ACID BLOODon 03-27-2017 Urate mass conc 4.1 mg/dL Normal 2.3-6.6 [facility] Comment on above: Performed By: #### 4 1000, 23702, 71876, 42019, 72928, 06769 ####[address] BK VIRUS QUANTITATION PCR BL OODon 02-26-2017 BKV QUANT PCR Not detected Normal [facility] Comment on above: Result Comment: Meth od: BK virus was measured by quantitative polymerase chain reactionusing a TaqMan probe targeting the polyomavirus BK [employer]CRETE P[employer]ING [employer]PERVISOR-1 gene.The lower limit of quantitation of the assay is 500 copies of BK genomeper milliliter of plasma or urine, and any detectable BK DNA below thatlevel is reported as: Detected, <500 copies/ml. Serial BK virusmeasurement can be used to monitor disease activity. (Reference:Kelsie vaughanl. J CLIN MICRO 2004; 42:0545-6674).This test was developed and its performance characteristics determinedby the [facility]. It has not been approvedby the US Food and Drug Administration. However, such approval is notrequired for clinical implementation, and test results have been shownto be clinically useful. This laboratory is CAP accredited and CLIAcertified to perform high complexity testing. Performed By: #### 4 1000, 04065, 81374, 95848, 97112, 24741 ####[facility]3000 [facility].[address] LOG 10 COPIES Not detected Normal [facility] Comment on above: Performed By: #### 4 1000, 58958, 45403, 48199, 53510, 80708 ####[place] [address] [facility].[address] CBC W/DIFFon 02-26-2017 Basophils Auto #/vol (Bld) 0.3 % Normal 0.0-2.[address] [facility] Comment on above: Performed By: #### 5 0103 ####[place] [address] [facility].[address] Eosinophils/100 WBC Auto (Bld) 2.2 % Normal 0.0-5.[address] [facility] Comment on above: Performed By: #### 5 0103 ####[place] [address] [facility].[address] Erythrocyte distribution width Auto Ratio (RBC) 13.8 % Normal 11.5-16.[address] [facility] Comment on above: Performed By: #### 5 0103 ####[place] [address] [facility].[address] Hematocrit Auto Volume Fraction (Bld) 44.9 % Normal 36.0-48.0 The [facility] Comment on above: Performed By: #### 5 0103 ####[address] Hemoglobin mass conc (Bld) 15.0 g/dL Normal 12.0-15.[address] [facility] Comment on above: Performed By: #### 5 0103 ####[facility] [place] [address], [facility] Lymphocytes/100 WBC Auto (Bld) 18.9 % Low 20.0-40.[address] [facility] Comment on above: Performed By: #### 5 0103 ####[facility] MCH Auto Entitic mass (RBC) 28.9 pg Normal 24.0-32.[address] [facility] Comment on above: Performed By: #### 5 3 ####[facility] MCHC Auto mass conc (RBC) 33.4 g/dL Normal 32.0-36.[address] [facility] Comment on above: Performed By: #### 5 3 ####[facility] MCV Auto Entitic volume (RBC) 86.6 fL Normal 80.0-100.[address] [facility] Comment on above: Performed By: #### 3 ####[facility] [place] [address], [facility] METHOD Normal RBC Morphology Normal [facility] Comment on above: Performed By: #### 5 3 ####[facility] [place] [address], [facility] MONOS 11.7 % High 2-[address] [facility] Comment on above: Performed By: #### 5 3 ####[facility] [place] [address], [facility] Neutrophils/100 WBC Auto (Bld) 66.9 % Normal 50-[address] [facility] Comment on above: Performed By: #### 5 3 ####[facility] [place] [address], [facility] PLAT CNT 230 Thou/mm3 Normal 100-400 The [facility] Comment on above: Performed By: #### 5 0103 ####[facility] [place] [address], [facility] RBC Auto #/vol (Bld) 5.18 mill/mm3 Normal 3.50-5.[address] [facility] Comment on above: Performed By: #### 5 0103 ####[facility] [place] [address], [facility] WBC Auto #/vol (Bld) 5.8 Thou/mm3 Normal 4.0-10.[address] [facility] Comment on above: Performed By: #### 5 0103 ####[facility] COMP METABOLIC PANELon 02-26 Albumin mass conc 4.7 g/dL Normal 3.5-5.7 The [facility] Comment on above: Performed By: #### 4 1000, 53301, 65430, 38630, 75995, 15210 ####[facility] [place] [address], [facility] ALKALINE PHOSPH 115 IU/L High 34-104 [facility] Comment on above: Performed By: #### 4 1000, 06018, 79889, 75678, 39047, 96770 ####[facility] [place] [address], [facility] ALT enzyme act/vol 18 U/L Normal 7-52 [facility] Comment on above: Performed By: #### 4 1000, 54164, 78561, 58945, 79300, 31276 ####[facility] [place] [address], [facility] AST enzyme act/vol 22 U/L Normal 13-39 The [facility] Comment on above: Performed By: #### 4 1000, 77440, 11875, 64850, 97080, 74213 ####[facility] [place] [address], [place] Bilirubin mass conc 0.6 mg/dL Normal 0.3-1.0 [facility] Comment on above: Performed By: #### 4 1000, 66660, 63547, 91666, 66652, 66351 ####[facility] [place] [address], [place] Calcium mass conc 9.8 mg/dL Normal 8.6-10.3 [facility] Comment on above: Performed By: #### 4 1000, 86309, 35702, 51479, 88779, 21061 ####[facility] [place] [address], [place] Chloride molar conc 103 mmol/L Normal 98-107 [facility] Comment on above: Performed By: #### 4 1000, 43179, 08078, 43407, 55523, 04400 ####[facility] [place] [address], [place] CO2 molar conc 29 mmol/L Normal 21-31 The [facility] Comment on above: Performed By: #### 4 1000, 23983, 17675, 21306, 22362, 85489 ####[facility] [place] [address], [place] Creatinine mass conc 0.78 mg/dL Normal 0.60-1.[address] [facility] Comment on above: Performed By: #### 4 1000, 26612, 47148, 65645, 12687, 44684 ####[facility] [place] [address], [place] GFR/1.73 sq M predicted among blacks MDRD vol rate/area (S/P/Bld) mL/min/{1.73_m2} Normal >60 The [facility] Comment on above: Performed By: #### 4 1000, 78151, 14737, 26703, 47677, 16955 ####[facility] [place] [address], [facility] GFR/1.73 sq M predicted among non-blacks MDRD vol rate/area (S/P/Bld) mL/min/{1.73_m2} Normal >60 The [facility] Comment on above: Performed By: #### 4 1000, 83720, 90462, 19556, 54535, 52019 ####[facility] [place] [address], [facility] Glucose mass conc 94 mg/dL Normal 70-100 The [facility] Comment on above: Performed By: #### 4 1000, 44156, 33248, 87259, 41233, 51207 ####[facility] [place] [address], [facility] Potassium molar conc 3.8 mmol/L Normal 3.5-5.[address] [facility] Comment on above: Performed By: #### 4 1000, 66632, 64717, 10011, 45093, 04130 ####[facility] [place] [address], [facility] Protein mass conc 7.4 g/dL Normal 6.0-8.3 The [facility] Comment on above: Performed By: #### 4 1000, 25751, 87438, 87920, 34268, 59036 ####[facility] [place] [address], [facility] Sodium molar conc 136 mmol/L Normal 136-145 The [facility] Comment on above: Performed By: #### 4 1000, 68840, 31943, 66720, 29057, 97008 ####[facility] [facility] [facility].[address] Urea nitrogen mass conc 19 mg/dL Normal 7-[address] [facility] Comment on above: Performed By: #### 4 1000, 55531, 08870, 44575, 11749, 72502 ####[facility]3000 [facility] [place] [address], [facility] DIRECT BILIon 02-26-2017 Bilirubin.direct mass conc 0.1 mg/dL Normal 0.0-0.[address] [facility] Comment on above: Performed By: #### 4 1000, 02093, 36695, 69763, 71607, 02922 ####[facility]3000 [facility].[address] EVEROLIMUS 50387js 7 EVEROLIMUS 5.9 ng/mL Normal [facility] Comment on above: Result Comment: Ther [...] the transplantcenter.Test developed and characteristics determined by [employer]. See Compliance Statement B: [employer]/CSPerformed by [employer],[address] [place] [address] ist.[employer], Leonid Antonio MD - Lab. Director HEMOGLOBIN A1Con 02-26-2017 Glucose mass conc 108 mg/dL Normal 70-126 [facility] Comment on above: Performed By: #### 4 6447, 54470 ####[facility] Hemoglobin A1c/Hemoglobin.total mass fraction (Bld) 5.4 % Normal 4.0-6.0 The [facility] Comment on above: Performed By: #### 4 6447, 57148 ####[facility] LIPID PROFILEon 02-26-2017 Cholesterol in HDL mass conc 54 mg/dL Normal 23-[address] [facility] Comment on above: Result Comment: Slig ht variation in normal range could be due to gender and/or age.HDL CHOLESTEROL REFERENCE RANGE:20 years and older Cardiovascular Risk> or =60 mg/dL [id number] TO 59 mg/dL Low Risk<40 mg/dL High Risk Performed By: #### 4 1000, 03638, 19383, 58298, 91108, 82455 ####[facility] Cholesterol in LDL mass conc 70 mg/dL Normal 0-[address] [facility] Comment on above: Result Comment: LDL IS A CALCULATIONLDL IS ONLY VALID IF THE TRIG IS LESS THAN 400. Performed By: #### 4 1000, 40838, 61621, 38052, 14354, 04816 ####[facility] [place] [address], [facility] Cholesterol mass conc 144 mg/dL Normal 120-[address] [facility] Comment on above: Result Comment: CHOL ESTEROL REFERENCE RANGE:20 YEARS AND OLDER CARDIOVASCULAR RISKLess than 200 mg/dl Low Yhll388 to 239 mg/dl Borderline Tlvi004 mg/dl and greater High Risk Performed By: #### 4 1000, 49773, 29027, 24085, 47416, 90687 ####[facility] Cholesterol.total/Cho lesterol in HDL mass ratio 2.7 {ratio} Normal .0-4.[address] [facility] Comment on above: Performed By: #### 4 1000, 32424, 95511, 58816, 17988, 39370 ####[facility] NON-HDL CHOLESTEROL 90 mg/dL Normal The [facility] Comment on above: Performed By: #### 4 1000, 43763, 22222, 80026, 99497, 83208 ####[facility] [facility].[address] Triglyceride mass conc 101 mg/dL Normal 40-[address] [facility] Comment on above: Result Comment: TRIG LYCERIDE REFERENCE RANGE:20 YEARS AND OLDER CARDIOVASCULAR RISKLESS THAN 150 mg/dl LOW [id number] TO 199 mg/dl BORDERLINE [id number] mg/dl AND GREATER HIGH RISK Performed By: #### 4 1000, 55194, 45911, 35620, 97693, 35880 ####[facility] [facility].[address] VLDL CHOL 20 mg/dL Normal 0-[address] [facility] Comment on above: Performed By: #### 4 1000, 49665, 49004, 50963, 62721, 65028 ####[facility] MAGNESIUM BLOODon 02-26-2017 Magnesium mass conc 1.9 mg/dL Normal 1.9-2.7 [facility] Comment on above: Performed By: #### 4 1000, 80900, 63111, 76277, 54798, 56038 ####[facility] [place] [address], [facility] PHOSPHORUS BLOODon 7 Phosphate mass conc 4.1 mg/dL Normal 2.5-5.0 [facility] Comment on above: Performed By: #### 4 1000, 62887, 31719, 98054, 48139, 26017 ####[facility] TACROLIMUSon 02-26-2017 Tacrolimus mass conc (Bld) 4.2 ng/mL Low 5.0-20.[address] [facility] Comment on above: Result Comment: The [employer] Tacrolimus assay is a delayed one-step immunoassayfor the quantitative determination of tacrolimus in human whole bloodusing the chemiluminescent microparticle immunoassay (CMIA) technologywith flexible assay protocols, referred to as Chemiflex. Performed By: #### 4 6447, 92381 ####[facility] URIC ACID BLOODon 02-26-2017 Urate mass conc 4.3 mg/dL Normal 2.3-6.6 [facility] Comment on above: Performed By: #### 4 1000, 80363, 95978, 30305, 64375, 24371 ####[facility] Vital Signs Date Time Vital Sign Value Performing Clinician Facility 06-01-2024 13:05-0500 Body height 152.4 cm Ester Padilla PA Work Phone: [facility] 06-01-2024 13:05-0500 Body mass index (BMI) [Ratio] 24.65 kg/m2 Ester Hemmer PA Work Phone: [facility] 06-01-2024 13:05-0500 Body temperature 98.29 [degF] Ester Hemmer PA Work Phone: [facility] 06-01-2024 13:05-0500 Body weight 57.24 kg Ester Hemmer PA Work Phone: [facility] 06-01-2024 13:05-0500 Diastolic blood pressure 74 mm[Hg] Ester Padilla PA Work Phone: [facility] 06-01-2024 13:05-0500 Heart rate 69 /min Ester Hemmer PA Work Phone: [facility] 06-01-2024 13:05-0500 Respiratory rate 16 /min Ester Hemmer PA Work Phone: [facility] 06-01-2024 13:05-0500 SaO2% (BldA) [Mass fraction] 95 % Ester Hemmer PA Work Phone: [facility] 06-01-2024 13:05-0500 Systolic blood pressure 112 mm[Hg] Ester Hemmer PA Work Phone: [facility] 08-30-2023 09:22-0400 Body height 182.88 cm [facility] 08-30-2023 09:22-0400 Body mass index (BMI) [Ratio] 17.9 kg/m2 [facility] 08-30-2023 09:22-0400 Body temperature 99.8 [degF] [facility] 08-30-2023 09:22-0400 Body weight 59.87 kg [facility] 08-30-2023 09:22-0400 Diastolic blood pressure 73 mm[Hg] [facility] 08-30-2023 09:22-0400 Heart rate 67 /min [facility] 08-30-2023 09:22-0400 SaO2% (BldA) [Mass fraction] 95 % [facility] 08-30-2023 09:22-0400 Systolic blood pressure 111 mm[Hg] [facility] 03-27-2023 11:30-0500 Body height 152.4 cm Cathy Bella Other [employer] [facility] [employer] Other 03-27-2023 11:30-0500 Body mass index (BMI) [Ratio] 25.39 kg/m2 Cathy Bella Other [employer] [facility] [employer] Other 03-27-2023 11:30-0500 Body temperature 97.5 [degF] Cathy Bella Other [facility] Other 03-27-2023 11:30-0500 Body weight 58.97 kg Cathy Bella Other [facility] Other 03-27-2023 11:30-0500 Respiratory rate 18 /min Cathy Bella Other [facility] Other 03-27-2023 11:30-0500 SaO2% (BldA) [Mass fraction] 96 % Cathy Bella Other [facility] Other 09-21-2022 09:00-0400 Body height 152.4 cm Martha Paola Other [facility] Other 09-21-2022 09:00-0400 Body mass index (BMI) [Ratio] 22.46 kg/m2 Martha Paola Other [facility] Other 09-21-2022 09:00-0400 Body temperature 97.6 [degF] Martha Paola Other [facility] Other 09-21-2022 09:00-0400 Body weight 52.16 kg Martha Paola Other [facility] Other 09-21-2022 09:00-0400 Diastolic blood pressure 70 mm[Hg] Martha Paola Other [facility] Other 09-21-2022 09:00-0400 Respiratory rate 18 /min Martha Paola Other [facility] Other 09-21-2022 09:00-0400 SaO2% (BldA) [Mass fraction] 96 % Martha Paola Other [facility] Other 09-21-2022 09:00-0400 Systolic blood pressure 107 mm[Hg] Martha Paola Other [facility] Other 01-12-2022 13:55-0400 Body height 152.4 cm Cathy Bella Other [facility] Other 01-12-2022 13:55-0400 Body mass index (BMI) [Ratio] 19.53 kg/m2 Cathy Bella Other [facility] Other 01-12-2022 13:55-0400 Body temperature 96.9 [degF] Cathy Bella Other [facility] Other 01-12-2022 13:55-0400 Body weight 45.36 kg Cathy Bella Other [facility] Other 01-12-2022 13:55-0400 Respiratory rate 18 /min Cathy Bella Other [facility] Other 01-12-2022 13:55-0400 SaO2% (BldA) [Mass fraction] 97 % Cathy Bella Other [facility] Other 12-28-2021 10:20-0400 Body height 152.4 cm Martha Paola Other [facility] Other 12-28-2021 10:20-0400 Body mass index (BMI) [Ratio] 21.48 kg/m2 Martha Paola Other [facility] Other 12-28-2021 10:20-0400 Body temperature 98 [degF] Martha Paola Other [facility] Other 12-28-2021 10:20-0400 Body weight 49.9 kg Martha Guevara Other [facility] Other 12-28-2021 10:20-0400 Respiratory rate 18 /min Martha Guevara Other [facility] Other 12-28-2021 10:20-0400 SaO2% (BldA) [Mass fraction] 97 % Martha Guevara Other [facility] Other 12-25-2021 10:05-0400 Body height 152.4 cm Cathy Bella Other [facility] Other 12-25-2021 10:05-0400 Body mass index (BMI) [Ratio] 21.48 kg/m2 Cathy Bella Other [facility] Other 12-25-2021 10:05-0400 Body temperature 96 [degF] Cathy Bella Other [facility] Other 12-25-2021 10:05-0400 Body weight 49.9 kg Cathy Bella Other [facility] Other 12-25-2021 10:05-0400 Respiratory rate 18 /min Cathy Bella Other [facility] Other 12-25-2021 10:05-0400 SaO2% (BldA) [Mass fraction] 97 % Cathy Bella Other [facility] Other 10-27-2021 12:35-0400 Body height 152.4 cm Cathy Bella Other [facility] Other 10-27-2021 12:35-0400 Body mass index (BMI) [Ratio] 22.85 kg/m2 Cathy Bella Other [facility] Other 10-27-2021 12:35-0400 Body weight 53.07 kg Cathy Bella Other [facility] Other 10-27-2021 12:35-0400 Diastolic blood pressure 87 mm[Hg] Cathy Bella Other [facility] Other 10-27-2021 12:35-0400 SaO2% (BldA) [Mass fraction] 98 % Cathy Bella Other [facility] Other 10-27-2021 12:35-0400 Systolic blood pressure 130 mm[Hg] Cathy Bella Other [facility] Other 08-14-2021 10:40-0400 Body height 152.4 cm Martah Paola Other [facility] Other 08-14-2021 10:40-0400 Body mass index (BMI) [Ratio] 22.46 kg/m2 Martha Paola Other [facility] Other 08-14-2021 10:40-0400 Body temperature 96.7 [degF] Martha Paola Other [facility] Other 08-14-2021 10:40-0400 Body weight 52.16 kg Martha Paola Other [facility] Other 08-14-2021 10:40-0400 Diastolic blood pressure 68 mm[Hg] Marthajd Guevara Other [facility] Other 08-14-2021 10:40-0400 Respiratory rate 20 /min Martha Guevara Other [facility] Other 08-14-2021 10:40-0400 SaO2% (BldA) [Mass fraction] 98 % Martha Guevara Other [facility] Other 08-14-2021 10:40-0400 Systolic blood pressure 144 mm[Hg] Martha Guevara Other [facility] Other Encounters Encounter Date Encounter Type Care Provider Facility Start: 10-20-2024 End: 10-20-2024 Clinisync Result Encounter Generic External Data Provider [facility] External Department Unsolicited Start: 10-20-2024 End: 10-20-2024 Clinisync Result Encounter Generic External Data Provider [facility] External Department Unsolicited Start: 10-14-2024 End: 10-14-2024 Telephone encounter Ester Padilla PA Work Phone: [facility] Start: 09-29-2024 End: 09-29-2024 ambulatory [facility] Start: 09-22-2024 End: 09-22-2024 Clinisync Result Encounter [...] (CMS/HCC); Hypercholesteremia (CMS/HCC); Hypomagnesemia; Renal transplant recipient ([facility]) Start: 06-01-2024 End: 06-01-2024 ambulatory [...] Start: 04-01-2024 End: 04-01-2024 ambulatory [facility] Start: 03-19-2024 End: 03-19-2024 Clinisync Result Encounter [...] Unsolicited Start: 09-02-2023 End: 09-02-2023 ambulatory ESTER Kristian RANDY Not Available Start: 08-30-2023 End: 08-30-2023 ambulatory [facility] Work Phone: Start: 08-30-2023 End: 08-30-2023 Patient encounter procedure [facility] Work Phone: Start: 03-27-2023 End: 03-27-2023 ambulatory Cathy Bella Other [facility] Other Start: 03-27-2023 Office outpatient vi sit 25 minutes Cathy Bella [facility] Start: 09-21-2022 End: 09-21-2022 ambulatory Martha Guevara Other [facility] Other Start: 09-21-2022 Office outpatient vi sit 15 minutes Martha Guevara [facility] Start: 08-12-2022 End: 08-13-[address] DORY [...] 01-12-2022 End: 01-12-2022 ambulatory Cathy Bella Other [facility] Other Start: 01-12-2022 Office outpatient vi sit 15 minutes Cathy Bella [facility] Start: 01-07-2022 End: 01-07-2022 ambulatory ISATU GUAMAN . Facility:[facility] Start: 01-03-2022 End: 01-04-[address] SCOUT SWIFT Facility:[facility] Start: 12-28-2021 End: 12-28-2021 ambulatory Martha Guevara Other [facility] Other Start: 12-28-2021 Office outpatient vi sit 15 minutes Martha Guevara [facility] [place] Start: 12-25-2021 End: 12-25-2021 ambulatory Cathy Bella Other [facility] Other Start: 12-25-2021 Office outpatient vi sit 25 minutes Cathy Bella [facility] [place] Start: 12-05-2021 End: 12-06-[address] DOCTOR CERNA Facility:[facility]1 Start: 11-07-2021 End: 11-08-[address] DOCTOR CERNA Facility:[facility] Start: 10-27-2021 End: 10-27-2021 ambulatory Cathy Bella Other [facility] Other Start: 10-27-2021 Office outpatient vi sit 15 minutes Cathy Bella [facility] [place] Start: 10-15-2021 End: 10-16-[address] DOCTOR MISC Facility:[facility] Start: 10-08-2021 End: 10-09-[address] DOCTOR MISC Facility:[facility] Start: 09-10-2021 End: 09-11-[address] DOCTOR MISC Facility:[facility] Start: 08-14-2021 End: 08-14-2021 ambulatory Martha Guevara Other [facility] Other Start: 08-14-2021 Office outpatient vi sit 15 minutes Martha uGevara [facility] [place] Start: 12-31-2017 End: 01-01-2018 Patient encounter SCOUT ZEYNEPFIDEL Facility:[facility] Start: 12-25-2017 End: 12-26-2017 Patient encounter ROSALINDA ROSENBAUM Facility:[facility] Start: 10-30-2017 End: 10-31-2017 Patient encounter ROSALINDA ROSENBAUM Facility:[facility] Start: 10-23-2017 End: 10-24-2017 Patient encounter ROSALINDA ROSENBAUM Facility:[facility] Start: 09-25-2017 End: 09-26-2017 Patient encounter ROSALINDA ROSENBAUM Facility:[facility] Start: 08-26-2017 End: 08-27-2017 Patient encounter ROSALINDA ROSENBAUM Facility:[facility] Start: 07-23-2017 End: 07-24-2017 Patient encounter ROSALINDA ROSENBAUM Facility:[facility] Start: 06-20-2017 End: 06-21-2017 Patient encounter ROSALINDA ROSENBAUM Facility:[facility] Start: 05-27-2017 End: 05-28-2017 Patient encounter ROSALINDA ROSENBAUM Facility:[facility] Start: 04-29-2017 End: 04-30-2017 Patient encounter ROSALINDA ROSENBAUM Facility:[facility] Start: 03-27-2017 End: 03-28-2017 Patient encounter ROSALINDA ROSENBAUM Facility:[facility] Start: 02-26-2017 End: 02-27-2017 Patient encounter DORY BARNES Facility:[facility] Procedures Date Procedure Procedure Detail Performing Clinician Start: 10-20-2024 ALL MAGNESIUM Generic E xternal Data Provider Start: 10-20-2024 ALL PHOSPHOROUS Generic External Data Provider Start: 10-20-2024 ALL URIC ACID Generic E xternal Data Provider Start: 10-20-2024 [facility] CMP (CMP) (FOR REMOTE C USE) Generic External Data Provider Start: 10-20-2024 METRO BILIRUBIN, DIRECT Generic External Data Provider Start: 09-22-2024 ALL CBC WITH AUTO DIFF [...] Start: 02-13-2024 [facility] CMP (CMP) (FOR REMOTE [facility] USE) Generic External Data Provider Start: [...] renal transplant Renal transplant recipient (CMS/HCC) Ester STEIN Work Phone: Plan of Treatment Date Care Activity Detail Author Start: 07-29-2027 Screening for malign ant neoplasm of colon [facility] Start: 02-14-2026 Screening for malign ant neoplasm of colon FIT-DNA [facility] Start: 06-01-2025 Medicare Annual Well ness (AWV) Medicare Annual Wellness (AWV) [facility] Start: 02-10-2025 Screening for malign ant neoplasm of breast Mammogram [facility] Start: 11-29-2024 Influenza vaccination Influenza Vacc ine (#1) [facility] Start: 06-01-2024 End: 06-01-2024 Patient encounter procedure 06/01/2024 1:00 PM EST Office Visit [facility] [address] [place] [id number] Ester Padilla PA [address] [place] [address] Arrived [facility] Comment on above: Arrived Start: 04-02-2024 Medicare Annual Well ness (AWV) Medicare Annual Wellness (AWV) [facility] Start: 11-30-2023 Influenza vaccination Influenza Vacc ine (#1) [facility] Start: 07-24-2023 Screening for malign ant neoplasm of breast Mammogram [facility] Start: 11-12-1975 Pneumococcal Vaccine : 65+ Years (1 of 2 - PCV) Pneumococcal Vaccine: 65+ Years (1 of 2 - PCV) [facility] Start: 1962 Pneumococcal Vaccine : 65+ Years (1 of 2 - PCV) Pneumococcal Vaccine: 65+ Years (1 of 2 - PCV) [facility] Start: 1956 Screening for malign ant neoplasm of colon [facility] Immunizations Immunization Date Immunization Notes Care Provider Fa cility 02-19-2024 influenza, injectabl e, madin yaron canine kidney, preservative free Ester STEIN Work Phone: [facility] 02-19-2024 influenza virus vaccine, unspecified formulation Ester STEIN Work Phone: [facility] 01-10-2023 Influenza, Seasonal, Quadrivalent, Adjuvanted Generic Provider [facility] 01-10-2023 influenza virus vaccine, unspecified formulation Generic Provider [facility] 09-16-2022 zoster vaccine recombinant Generic Provider [facility] 07-22-2022 zoster vaccine recombinant Generic Provider [facility] 02-19-2022 Influenza, injectabl e, Madin Jerusalem Canine Kidney, preservative free, quadrivalent Generic Provider [facility] 02-19-2022 SARS-COV-2 (COVID-19 ) vaccine, mRNA, spike protein, LNP, bivalent, PF Generic Provider [facility] 01-09-2021 influenza, seasonal, injectable Generic Provider [facility] 12-12-2019 influenza, injectabl e, quadrivalent, preservative free Generic Provider [facility] 12-26-2018 influenza, injectabl e, quadrivalent, contains preservative Generic Provider [facility] 01-21-2018 influenza, injectabl e, quadrivalent, contains preservative Generic [facility] 12-29-2017 influenza, injectabl e, quadrivalent, preservative free Generic Provider [facility] 12-20-2016 influenza, injectabl e, quadrivalent, preservative free Generic Provider [facility] 12-02-2016 seasonal influenza, intradermal, preservative free Generic Provider [facility] 01-16-2015 influenza, injectabl e, quadrivalent, preservative free Generic [facility] 03-16-2009 influenza virus vaccine, split virus (incl. purified surface antigen) Martha Guevara Other [facility] Other 03-16-2009 influenza virus vaccine, unspecified formulation [facility] Payers Date Payer Category Payer Medicare AN[employer]M MEDICARE ADVANTAGE [facility] MEDICARE ADVANTAGE [id number] 2021-Present [address] [place] [address] [id number] 2021 Medicare (Managed Care) [facility] ADVANTAGE [id number] 1959 Blue Cross Blue Shield [id number] 1959 Self-pay 1959 Unknown [id number] 1956 Unknown [id number] 2.16.840.1.046257.3.579. 2.647 1956 Unknown [id number] 2.16.840.1.149100.3.579. 2.647 1956 Unknown [id number] 2.16.840.1.585755.3.579. 2. 1956 Unknown [id number] 2.16.840.1.716608.3.579. 2. 1956 Unknown [id number] 2.16.840.1.505820.3.579. 2.647 1956 Unknown [id number] 2.16.840.1.755966.3.579. 2.647 1956 Unknown [id number] 2.16.840.1.529006.3.579. 2.647 1956 Unknown [id number] 2.16.840.1.832340.3.579. 2.647 1956 Unknown [id number] 2.16.840.1.840972.3.579. 2.647 1956 Unknown [id number] 2.16.840.1.360472.3.579. 2.647 1956 Unknown [id number] 2.16.840.1.766756.3.579. 2.647 1956 Unknown [id number] 2.16.840.1.819176.3.579. 2.647 1956 Unknown [id number] 2.16.840.1.942083.3.579. 2.593 1956 Unknown [id number] 2.16.840.1.739647.3.579. 2.593 1956 Unknown [id number] 2.16.840.1.367937.3.579. 2.593 1956 Unknown [id number] 2.16.840.1.961531.3.579. 2.593 1956 Unknown [id number] 2.16.840.1.324725.3.579. 2.593 1956 Unknown [id number] 2.16.840.1.711806.3.579. 2.593 1956 Unknown [id number] 2.16.840.1.545929.3.579. 2.593 1956 Unknown [id number] 2.16.840.1.891415.3.579. 2.593 1956 Unknown [id number] 2.16.840.1.474631.3.579. 2.593 1956 Unknown [id number] 2.16.840.1.628416.3.579. 2.593 1956 Unknown [id number] 2.16.840.1.061660.3.579. 2.593 1956 Unknown [id number] 2.16.840.1.425443.3.579. 2.593 1956 Unknown [id number] 2.16.840.1.472030.3.579. 2.593 1956 Unknown [id number] 2.16.840.1.736924.3.579. 2.593 1956 Unknown [id number] 2.16.840.1.369981.3.579. 2.593 1956 Unknown [id number] 2.16.840.1.315895.3.579. 2.1259 1956 Unknown [id number] 2.16.840.1.754532.3.579. 2.1259 Unknown [id number] 2.16.840.1.863854.3.579. 2.593 Unknown Amy BALBIR/DAYSI [id number] Social History Date Type Detail Facility Unknown if ever smoked [facility] [employer] Other Start: 09-02-2023 End: 06-01-2024 Sex Assigned At [facility] [employer] Other Start: 01-29-2023 End: 08-30-2023 Tobacco smoking status NHIS Never smoked tobacco (finding) [facility] Start: 1955 Sex Assigned At Female F [facility] Start: 01-29-2023 Tobacco use and exposure Smokeless tobacco non-user [facility] Start: 09-02-2023 End: 06-01-2024 Alcoholic beverage intake Lifetime non-drinker (finding) [facility] Start: 09-02-2023 End: 06-01-2024 History of Social function [facility] Start: 1955 Sex assigned at Not on file [facility] Clinical Notes 11-10-2007 to 10-14-2024 Telephone Encounter - SARITA Mcrae - 10/14/2024 1:08 PM EDTTelephone Encounter - SARITA Mcrae - 10/14/2024 1:08 PM EDTSARITA Mcrae - 06/01/2024 1:00 PM EST Note Date & Type Note Facility 10-14-2024 Telephone encounter Note Refill request for paroxetine. Sent. [facility] 10-14-2024 Miscellaneous Notes Refill request for paroxetine. Sent. documented in this encounter [facility] 09-29-2024 Note Transplant Clinic Patient : Tanika Grimm; 68 y.o. Reason for Visit: History of renal transplant. SUBJECTIVE: History Of Present Illness: Tanika Grimm is a 68 y.o. female who End-stage renal disease secondary to Polycystic Kidneys who underwent donor kidney transplant on 01/21/2013. 09/29/2024 Patient returns regarding post transplant evaluation and immunosuppression regimen management. Urinary-denies dysuria or gross hematuria. No urinary frequency or urgency. No incontinence. Endorses nocturia x 2. No recent UTI Bowel movements-back to normal for patient, not using any laxatives or stool regimen, no blood in stool. Denies peripheral edema, occasionally with prolonged standing. Tremors-only noticeable when holding an object with extended arm, such as pot of coffee. Not affecting ADLs. Patient denies dyspnea, chest pain Patient denies fever, chills, nausea, vomiting. Patient inquired about recurrence of cold sores Immunosuppression: Tacrolimus 1 mg p.o. twice daily Myfortic 540 mg (3 tabs x 180mg), PO, BID (Clarified with patient has been on reduced Myfortic for quite some time) Review of Systems Negative other than pertinent positives as outlined in the above HPI Chart Reviewed Historical: >>>>>>>>>>>>>>>>>>>>>>>>>>>>>>>>> >>>>>>>>>>>>>>> 04/01/2024 Patient returns regarding post transplant follow [...] mg (4 tabs x 180mg), PO, BID 09/23/23 Pt here in follow up with [...] Continue meds and MONTHLY Labs with New [facility] standing Order given today. Follow up 6 months or sooner if needed. See Derm See PCP as scheduled: Dr Carroll. Tory Mouthwash script provided. Chart Review today: 03.17.23 Pt presents visit with . Pt states labs done Last week in [facility] [place] calling for results. Pt seeing Derm in [place] for lesion: forearm and other lesions. Hx: [...] Hgb. Pt AGAIN instructed to use our [facility] Transplant standing order for her monthly labs. Pt reports B/P stable at home Discussed hydration PLan of Care: Continue meds and MONTHLY Labs with [facility] standing Order. Follow up 6 [...] post transplant visit and 24-month everolimus study (more content not included)... [facility] 06-01-2024 History of Present illness Narrative [...] Do you have a medical power of securities attorney?: Yes Current Outpatient Medications on File [...] and 3 tablets before bedtime. nystatin (Mycostatin) [id number] UNIT/ML suspension SWISH AND SWALLOW 5 MLS [...] level 01/29/2023 History of stress test Hypertension ([facility]) Joint contracture of foot, unspecified laterality 01/29/2023 Polycystic kidney 2013 Renal transplant recipient (CMS/HCC) 01/29/2023 Past Surgical History: Procedure Laterality Date [...] 280 mL; Refill: 0 5. Primary hypertension ([facility]) Patient's blood pressure is currently well controlled. Continue with current medications and I will continue to monitor. Goal BP remains less than 130/80. 6. PKD (polycystic kidney disease) The patient is seeing a medical receptionist for this condition, treatment is deferred to that specialist. Correspondence from that specialist and any available testing were reviewed during today's visit. 7. Joint contracture of foot, unspecified laterality This is a chronic medical condition that is stable since last assessment. No changes in treatment are suggested at this time. 8. Immunosuppression (CMS/HCC) The patient is seeing a medical receptionist for this condition, treatment is deferred to that specialist. Correspondence from that specialist and any available testing were reviewed during today's visit. 9. Abnormal complete blood count The patient is seeing a medical receptionist for this condition, treatment is deferred to that specialist. Correspondence from that specialist and any available testing were reviewed during today's visit. 10. Current moderate episode of major depressive disorder without prior episode (HCC) (CMS/[facility]) This is a chronic medical condition that [...] with preventative screenings. 13. Generalized anxiety disorder ([facility]/HCC) This is a chronic medical condition [...] with routine labs. 16. Renal transplant recipient ([facility]/HCC) The patient is seeing a medical receptionist for this condition, treatment is deferred to that specialist. Correspondence from that specialist and any available testing were reviewed during today's visit. Follow up in about 1 year (around 06/01/2025) for Medicare Wellness Visit. Ester CARRASCO PA-C documented in this encounter [facility] 04-01-2024 Note Transplant Clinic Patient : [...] Continue meds and MONTHLY Labs with New [facility] standing Order given today. Follow up 6 months or sooner if needed. See Derm See PCP as scheduled: Dr Carroll. Magic Mouthwash script provided. Chart Review today: 03.17.23 Pt presents visit with . Pt states labs done Last week in [facility] [place] calling for results. Pt seeing Derm in [place] for lesion: forearm and other lesions. Hx: [...] Hgb. Pt AGAIN instructed to use our [facility] Transplant standing order for her monthly labs. Pt reports B/P stable at home Discussed hydration PLan of Care: Continue meds and MONTHLY Labs with [facility] standing Order. Follow up 6 [...] study. <<<<<<<<<<<<<<<<<<<<<<<<<<<<<<<<< << (more content not included)... [facility] 12-18-2023 Note Will review by phone today with Dr. Negro Vivas tac level 3.9 for 2 consecutive months and if any dose changes, will notify this pt and amend this note. Most recent IR tacrolimus dosing on record is 0.5mg BID [facility] 12-09-2023 Note Prior auth for Mycop henolate was submitted via cmm Approved- scanned into media Keycode: [id number] [facility] 11-26-2023 Note Prior auth submitted via CMM PA Case: [id number], Status: Approved, Coverage Starts on: 08/27/2023 12:00:00 AM, Coverage Ends on: 11/25/2024 12:00:00 AM Keycode: [id number] [facility] 03-27-2023 Evaluation note Encounter Date Diagnosis Assessment Notes Feb, Contact with and (suspected) exposure to covid-19 (ICD-10 - Z20.822) Feb, Viral URI (ICD-10 - J06.9) Advised patient that COVID/Influenza A/B/RSV test and rapid Strep test was negative today. Advised patient that will treat as viral URI. Supportive care as directed, increase fluids and rest, Tylenol as directed, rx of [place], cool mist humidifier, throat lozenges. Discussed infection [...] condition. Feb, Sore throat (ICD-10 - J02.9) [facility] Other 10-15-2022 Evaluation note* Encounter Date Diagnosis [...] understanding and is agreeable with treatment plan [facility] Other 09-30-2022 Evaluation note* Encounter Date Diagnosis [...] no improvement in 2 to 3 days. [facility] Other 09-27-2022 Evaluation note* Encounter Date Diagnosis [...] treatment plan. Patient left in stable condition [facility] Other 07-30-2022 Evaluation note* Encounter Date Diagnosis [...] verbalizes understanding and agrees with treatment plan [facility] Other 05-17-2022 Evaluation note* Encounter Date Diagnosis [...] days July, Hematuria, unspecified (ICD-10 - R31.9) [facility] Other 08-12-2008 History general Narrative - Reported* Type Description Date Medical History PKD found in 1982 when she had a son Medical History hypertension Medical History kidney transplant Surgical History resection of superior cervical mass 11/10/07 Surgical History Teeth extraction in preparation for renal transplant Surgical History portacath placement Surgical History kidney transplant 2013 Hospitalization History see above [facility] Other Evaluation noteNoAdpeps Other Evaluation note* Diagnosis Onset Date Resolution Status Thrush, oral acute Sore throat noneactive [facility] Work Phone: Evaluation note* Diagnosis Medicare annual wellness visit, subsequent- Primary ACP (advance care planning) Other specified counseling Acute non-recurrent pansinusitis Acute bronchitis, unspecified organism Primary hypertension ([facility]) Unspecified essential hypertension PKD (polycystic kidney disease) Congenital polycystic kidney, unspecified type Joint contracture of foot, unspecified laterality Immunosuppression ([facility]) Abnormal complete blood count Other abnormal blood chemistry Current moderate episode of major depressive disorder without prior episode (HCC) ([facility]) Elevated alkaline phosphatase level Estrogen deficiency Other ovarian failure Generalized anxiety disorder ([facility]) Generalized anxiety disorder Hypercholesteremia ([facility]) Pure hypercholesterolemia Hypomagnesemia Disorders of magnesium metabolism Renal transplant recipient ([facility]) [facility] Diagnosis Current moderate episode of major depressive disorder without prior episode (HCC) documented [facility] Narrative - ReportedNoFM [employer] Other Summary Purpose Family History No Family [...] and content) DATE CREATED AUTHOR 01/30/2018 [facility] DATE CREATED AUTHOR AUTHOR'S ORGANIZ ATION 08/17/2021 [facility] DATE CREATED AUTHOR AUTHOR'S ORGANIZ ATION 08/13/2022 [facility] DATE CREATED AUTHOR AUTHOR'S ORGANIZ ATION 06/03/2024 [facility] DATE CREATED AUTHOR AUTHOR'S ORGANIZ ATION 10/27/2024 [facility] REASON FOR VISIT (unrecogniz ed section and [...] August 30, 2023 End: August 30, 2023 Employment Office Clerk Relationship Specialty Start Date End Date Ramon Carroll MD [address] [place] [address] PCP - Amy FERREIRA 04/08/21 Ramon Carroll MD [address] [place] [address] PCP - General Internal Medicine 08/06/22 Employment Office Clerk Relationship Specialty Start Date End Date Ramon Carroll MD [address] [place] [address] PCP - Amy FERREIRA 04/08/21 Ramon Carroll MD [address] [place] [address] PCP - General Internal Medicine 08/06/22 Employment Office Clerk Relationship Specialty Start Date End Date Ramon Carroll MD [address] [place] [address] PCP - Amy FERREIRA 04/08/21 Ramon Carroll MD [address] [place] [address] PCP - General Internal Medicine 08/06/22 Employment Office Clerk Relationship Specialty Start Date End Date Ramon Carroll MD [address] [place] [address] PCP - General Internal Medicine 08/06/22 Employment Office Clerk Relationship Specialty Start Date End Date Ramon Carroll MD [address] [place] [address] PCP - Amy FERREIRA 04/08/21 Ramon Carroll MD [address] [place] [address] PCP - General Internal Medicine 08/06/22 Employment Office Clerk Relationship Specialty Start Date End Date Ramon aCrroll MD [address] [place] [address] PCP - Amy FERREIRA 04/08/21 Ramon Carroll MD [address] [place] [address] PCP - General Internal Medicine 08/06/22 Employment Office Clerk Relationship Specialty Start Date End Date Ramon Carroll MD [address] [place] [address] PCP Ailyn Reyes MA 04/08/21 Ramon Carroll MD [address] [place] [address] PCP - General Internal Medicine 08/06/22 Goals [...] BE BASED ON THE PRIMARY CLINICAL RECORDS. [facility]. provides no warranty or guarantee of the accuracy or completeness of information in this document.
[2024-11-17 07:21] LABS: Hematocrit 45.5 % (36.0-48.0); Hemoglobin 15.0 g/dL (12.0-16.0); Immature Granulocytes Abs Auto 0.01 10^3/uL (0.00-0.03); Immature Granulocytes Pct Auto 0.2 % (0.0-0.5); Lymphocytes Absolute Auto 1.3 10^3/uL (1.2-3.8); Mean Corpuscular HGB Conc 33.0 g/dL (29.9-35.2); Mean Corpuscular Hemoglobin 30.9 pg (26.7-34.0); Mean Corpuscular Volume 93.6 fL (81.0-99.0); Platelet Count 213 10^3/uL (150-450); Red Blood Count 4.86 10^6/uL (4.20-5.40); White Blood Count 6.4 10^3/uL (4.0-11.0)
[2024-11-17 09:52] LABS: Alanine Aminotransferase 22 U/L (14-59); Albumin Globulin Ratio 1.0; Albumin Level 3.5 g/dL (3.4-5.0); Alkaline Phosphatase 145 U/L (46-116); Anion Gap 9.8; Aspartate Amino Transferase 15 U/L (15-37); Blood Urea Nitrogen 15.0 mg/dL (7.0-18.0); Calcium 9.2 mg/dL (8.5-10.1); Carbon Dioxide 30.1 mmol/L (21.0-32.0); Chloride 105 mmol/L (98-107); Cholesterol 122 mg/dL (<=200); Estimated GFR (African America >60 (>=60 mL/min/1.73m^2); Estimated GFR (Non-African Ame 54 (>=60 mL/min/1.73m^2); Globulin 3.6 g/dL; Glucose 90 mg/dL (74-106); HDL Cholesterol 45 mg/dL (40-60); Magnesium 1.6 mg/dL (1.8-2.4); Potassium 3.9 mmol/L (3.5-5.1); Sodium 141 mmol/L (136-145); Total Protein 7.1 g/dL (6.4-8.2); Triglycerides 92 mg/dL (<=150); Uric Acid 5.2 mg/dL (2.6-6.0); VLDL CHOLESTEROL 18.4 mg/dL
[2024-11-18 17:08] LABS: BKV DNA, Quant PCR, Plasma Negative (Negative)
[2024-11-20 15:08] LABS: Tacrolimus (FK506), Blood 4.7 ng/mL (5.0-20.0)
== END 2024-11-17 06:36 | disposition home or self-care (01) ==
LOC: LAB 06:37
PROVIDERS: PCP Internal Medicine; Visit Provider Nurse Practitioner Family
DX: R73.01 Impaired fasting glucose (principal); Z94.0 Kidney transplant status
CPT/HCPCS: 36415; 80053; 80061; 80197; 82248; 83036; 83735; 84100; 84550; 85025; 87799

== ENCOUNTER 2024-12-20 06:44 | Outpatient (OUT) | payer MEDICARE, SELFPAY ==
--- OUTSIDE RECORDS SUMMARY | 2024-12-20 06:49 | XMS_ITS | Encounter Summary ---
Author Organization [facility] Address [address] [place] [address] Care Team Providers Care Surgical Instrument Maker Name Role Phone Ramon Carroll MD Unavailable [phone] Ramon Carroll MD Primary Care Provider Encounter Details Date Type Department Care Team (Late st Contact Info) Description 06/01/2024 [facility] [place] [facility] [address] [facility] [address] [place] [id number] Ramon Carroll MD [address] [facility] [address] [place] [address] Social History Tobacco Use Types Packs/Day Years [...] things Not at all 06/01/2024 12:00 PM Anushka Ulloa L PN Feeling down, depressed, or hopeless Not at all 06/01/2024 12:00 PM Anushka Ulloa L PN Patient Health Questionnaire -2 Score [...] documented as of this encounter Care Teams Surgical Instrument Maker Relationship Specialty Start Date End Date Ramon Carroll MD [address] [facility] [address] [place] [address] PCP - Amy FERREIRA 04/08/21 Ramon Carroll MD [address] [facility] [address] [place] [address] PCP - General Internal Medicine 08/06/22 documented as of this encounter
--- OUTSIDE RECORDS SUMMARY | 2024-12-20 06:49 | XMS_ITS | Clinical Summary ---
Author Organization [facility] Healthcare Address [address] [place] [address] Care Team Providers Care Blower Mechanic Name Role Phone Ramon Carroll MD Unavailable [phone] Ramon Carroll MD Primary Care Provider [phone] Allergies No known active allergies Medications amLODIPine [...] and 3 tablets before bedtime. 01/27/2023 Active Ferrous Fumarate 325 (106 Fe) MG tablet Daily 08/30/2023 Active nystatin (Mycostatin) 905167 UNIT/ML suspensionIndic ations:Thrush, oral SWISH AND SWALLOW 5 MLS ORALLY 4 TIMES A DAY FOR 10 DAYS 60 mL 1 09/02/2023 Active baclofen (Lioresal) 10 MG tabletIndicatio ns:Trapezius muscle spasm Take 1 tablet (10 mg) by mouth 2 (two) times a day as needed for muscle spasms 60 tablet 5 04/19/2024 Active PARoxetine (Paxil) 20 MG tabletIndicatio ns:Current moderate episode of major depressive disorder without prior episode (HCC) Take 1 tablet (20 mg) by mouth in the morning. 90 tablet 2 10/14/2024 Active Active Problems Problem Noted Date Diagnosed [...] Encounters Date Type Department Care Team Description 11/17/2024 Clinisync Result Encounter [facility] External Department Unsolicited Provider, Generic External Data 10/20/2024 Clinisync Result Encounter [facility]S External Department Unsolicited Provider, Generic External Data 10/14/2024 Telephone [facility] [address] [facility] [address] [place] [address] Ester Green PA 09/22/2024 Clinisync [...] - PCV) 11/12/1975 Influenza Vaccine (#1) 2024 , 01/10/2023, 02/19/2022, Additional history exists Mammogram 02/10/2025 02/11/2024, 06/30, 04/02/2021, Additional history exists Medicare Annual Wellness (AWV) 06/01/2025 0 06/01/2024, 04/02/2023, 01/30/2023 FIT-DNA 02/14/2026 02/14/2023 Colonoscopy 07/29/2027 07/28/2017 Colorectal Cancer Screening 07/29/2027 Procedures Procedure Name Priority Date/Time Associated Diagnosis Comments TACROLIMUS (FK506), BLOOD Routine 11/17/2024 6:57 AM EDT BKV QUANT PCR Routine 11/17/2024 6:57 AM EDT ALL LIPID PROFILE (FASTING) Routine 11/17/2024 6:57 AM EDT METRO BILIRUBIN, DIRECT Routine 11/17/2024 6:57 AM EDT ALL MAGNESIUM Routine 11/17/2024 6:57 AM EDT ALL PHOSPHOROUS Routine 11/17/2024 6:57 AM EDT ALL URIC ACID Routine 11/17/2024 6:57 AM EDT [facility] CMP (CMP) (FOR REMOTE [facility] USE) Routine 11/17/2024 6:57 AM EDT MLR HEMOGLOBIN A1C Routine 11/17/2024 6: 57 AM EDT ALL CBC WITH AUTO DIFF Routine 6:57 AM EDT TACROLIMUS (FK506), BLOOD Routine 10/20/2024 7:01 AM EDT ALL CBC WITH AUTO DIFF Routine 7:01 AM EDT METRO BILIRUBIN, DIRECT Routine 10/20/2024 7:01 AM EDT ALL MAGNESIUM Routine 10/20/2024 7:01 AM EDT ALL PHOSPHOROUS Routine 10/20/2024 7:01 AM EDT ALL URIC ACID Routine 10/20/2024 7:01 AM EDT [facility] CMP (CMP) (FOR REMOTE [facility] USE) Routine 10/20/2024 7:01 AM EDT TACROLIMUS (FK506), BLOOD Routine 09/22/2024 7:03 AM EDT METRO BILIRUBIN, DIRECT Routine 09/22/2024 7:03 AM EDT ALL MAGNESIUM Routine 09/22/2024 7:03 AM EDT ALL PHOSPHOROUS Routine 09/22/2024 7:03 AM EDT ALL URIC ACID Routine 09/22/2024 7:03 AM EDT [facility] CMP (CMP) (FOR REMOTE [facility] USE) Routine 09/22/2024 7:03 AM EDT ALL CBC WITH AUTO DIFF Routine 7:03 AM EDT MM TOMOSYNTHESIS SCREENING BI 02/11/2024 9:08 AM EST LAB COLOGUARD COLON CANCER SCREEN Routine 02/14/2023 1:15 PM EST Screening for colorectal cancer from Last 3 Months or Most Recently Relevant to Health Maintenance Results * BKV QUANT PCR (11/17/2024 6:57 AM EDT) BKV DNA, QUANT PCR, PLASMA Negative Negative IU/mL [facility] Comment: No BK DNA detected. The linear range of the assay is 22 - 100,000,000 IU/mL. Performed at: [address] [id number] County Commissioner: Real Chaparro PhD, Phone: [phone] [id number] BKV DNA,PLASMA TNP . [facility] 11/17/2024 6:57 AM EDT 11/17/2024 6:59 AM EDT Narrative CLINISYNC - 11/18/2024 5:08 PM EDT Generic External Data Provider LAB BLOOD ORDERAB LES Final Result Performing Organization Address City/[facility]/ZIP Co de Phone Number [facility] * (ABNORMAL) TACROLIMUS (FK506), BLOOD (11/17/2024 6:57 AM EDT) Only the most recent of3 resultswithin the time period is included. Pathologist [facility] TACROLIMUS (FK506), BLOOD 4.7(A) 5.0 - 20.0 ng/mL [facility] Comment: This test was developed and its performance characteristics determined by [employer]. It has not been cleared or approved [...] ng/mL Performed by LC-MS/MS technology. Performed at: [address] [id number] County Commissioner: Marizol Singleton MD, Phone: [phone] 11/17/2024 6:57 AM EDT 11/17/2024 6:59 AM EDT Narrative CLINISYNC - 11/20/2024 3:08 PM EDT Generic External Data Provider LAB BLOOD ORDERAB LES Final Result Performing Organization Address City/[facility]/ZIP Co de Phone Number [facility] * MLR HEMOGLOBIN A1C (11/17/2024 6:57 AM EDT) [facility] GLYCOHEMOGLOBIN A1C 5.4 4.5 - 6.2 % [facility] Comment: ADA RECOMMENDED LIMIT 4.0 - 6.0 ADA THERAPEUTIC TARGET < 7.0 ACTION SUGGESTED > 7.0 ESTIMATED AVERAGE GLUCOSE 108 mg/dL [facility] 11/17/2024 6:57 AM EDT 11/17/2024 6:59 AM EDT Narrative CLINISYNC - 11/17/2024 9:17 AM EDT Generic External Data Provider CLINIS[facility]NC F inal Result [facility] * METRO BILIRUBIN, DIRECT (11/17/2024 6:57 AM EDT) Only the most recent of3 resultswithin the time period is included. BILIRUBIN DIRECT 0.1 0.0 - 0.2 mg/dL [facility] 11/17/2024 6:57 AM EDT 11/17/2024 6:59 AM EDT Narrative CLINISYNC - 11/17/2024 10:13 AM EDT Generic External Data Provider CLINISYNC F inal Result Performing Organization Address [facility] Co de Phone Number [facility] * (ABNORMAL) [facility] CMP (CMP) (FOR REMOTE [facility] USE) (11/17/2024 6:57 AM EDT) Only the most recent of3 resultswithin the time period is included. SODIUM 141 136 - 145 mmol/L [facility] POTASSIUM 3.9 3.5 - 5.1 mmol/L [facility] CHLORIDE 105 98 - 107 mmol/L [facility] CARBON DIOXIDE 30.1 21.0 - 32.0 mmol/L [facility] ANION GAP 9.8 TB[facility] GLUCOSE 90 74 - 106 mg/dL [facility] BLOOD UREA NITROGEN 15.0 7.0 - 18.0 mg/dL [facility] CREATININE 1.02 0.55 - 1.02 mg/dL [facility] TBH EGFR-AF BERMUDIAN >60 >=60 mL/min/1. 73m 2 TBH TBH EGFR-NON AF BERMUDIAN 54(L) >=60 mL/min/1. 73m 2 [facility] BUN CREATININE RATIO 14.7 TBH CALCIUM 9.2 8.5 - 10.1 mg/dL [facility] BILIRUBIN TOTAL 0.8 0.2 - 1.0 mg/dL [facility] ASPARTATE AMINO TRANSFERASE 15 15 - 37 U/L [facility] ALANINE AMINOTRANSFERASE 22 14 - 59 U/L [facility] ALKALINE PHOSPHATASE 145(H) 46 - 116 U/L [facility] TOTAL PROTEIN 7.1 6.4 - 8.2 g/dL [facility] ALBUMIN LEVEL 3.5 3.4 - 5.0 g/dL [facility] GLOBULIN 3.6 g/dL [facility] ALBUMIN GLOBULIN RATIO 1.0 [facility] 11/17/2024 6:57 AM EDT 11/17/2024 6:59 AM EDT Narrative CLINISYNC - 11/17/2024 10:13 AM EDT Generic External Data Provider CLINISYNC F inal Result Performing Organization Address [facility] de Phone Number [facility] * ALL URIC ACID (11/17/2024 6:57 AM EDT) Only the most recent of3 resultswithin the time period is included. URIC ACID 5.2 2.6 - 6.0 mg/dL TB 11/17/2024 6:57 AM EDT 11/17/2024 6:59 AM EDT Narrative CLINISYNC - 11/17/2024 10:13 AM EDT Generic External Data Provider CLINISYNC F inal Result Performing Organization Address City/[facility] Co de Phone Number [facility] * ALL PHOSPHOROUS (11/17/2024 6:57 AM EDT) Only the most recent of3 resultswithin the time period is included. PHOSPHORUS 3.5 2.6 - 4.7 mg/dL TB 11/17/2024 6:57 AM EDT 11/17/2024 6:59 AM EDT Narrative CLINISYNC - 11/17/2024 10:13 AM EDT Generic External Data Provider CLINISYNC F inal Result Performing Organization Address [facility] de Phone Number [facility] * (ABNORMAL) ALL MAGNESIUM (11/17/2024 6:57 AM EDT) Only the most recent of3 resultswithin the time period is included. MAGNESIUM 1.6(L) 1.8 - 2.4 mg/dL TB 11/17/2024 6:57 AM EDT 11/17/2024 6:59 AM EDT Narrative CLINISYNC - 11/17/2024 10:13 AM EDT Generic External Data Provider CLINISYNC F inal Result Performing Organization Address [facility] de Phone Number [facility] * ALL LIPID PROFILE (FASTING) (11/17/2024 6:57 AM EDT) TRIGLYCERIDES 92 <=150 mg/dL [facility] CHOLESTEROL 122 <=200 mg/dL TB HDL CHOLESTEROL 45 40 - 60 mg/dL TB Comment: > or =60 mg/dl - LOW CARDIOVASCULAR RISK <40 mg/dl - HIGH CARDIOVASCULAR RISK LDL CHOLESTEROL CALCULATED 58.6 mg/dL TB Comment: <100 mg/dl OPTIMAL 100-129 mg/dl NEAR OR ABOVE OPTIMAL 130-159 mg/dl BORDERLINE HIGH 160-189 mg/dl HIGH >190 mg/dl VERY HIGH VLDL CHOLESTEROL 18.4 mg/dL TB CHOL HDL RATIO 2.7 TB Comment: 3.3 - 4.4 LOW RISK 4.4 - 7.1 AVERAGE RISK 7.1 - 11.0 MODERATE RISK >11.0 HIGH RISK 11/17/2024 6:57 AM EDT 11/17/2024 6:59 AM EDT Narrative CLINISYNC - 11/17/2024 10:13 AM EDT Generic External Data Provider CLINISYNC F inal Result Performing Organization Address [facility] de Phone Number [facility] * (ABNORMAL) ALL CBC WITH AUTO DIFF (11/17/2024 6:57 AM EDT) Only the most recent of3 resultswithin the time period is included. TBH WBC 6.4 4.0 - 11.0 10 3/uL TBH TBH RBC 4.86 4.20 - 5.40 10 6/uL TBH TBH HGB 15.0 12.0 - 16.0 g/dL TBH TBH HCT 45.5 36.0 - 48.0 % TBH TBH MCV 93.6 81.0 - 99.0 fL TBH TBH MCH 30.9 26.7 - 34.0 pg TBH TBH MCHC 33.0 29.9 - 35.2 g/dL TBH TBH RDW 14.8 11.0 - 15.0 % TBH TBH PLT 213 150 - 450 10 3/uL TBH TBH MPV 11.0 9.5 - 13.5 fL TBH NEUTROPHILS PERCENT AUTO 66.0 43.0 - 75.0 % TBH LYMPHOCYTES PERCENT AUTO 19.8(L) 20.5 - 60.0 % TBH MONOCYTES PERCENT AUTO 11.0 1.7 - 12.0 % TBH TBH EO % 2.8 0.9 - 7.0 % TBH BASOPHILS PERCENT AUTO 0.2 0.2 - 2.0 % TBH IMMATURE GRANULOCYTES PCT AUTO 0.2 0.0 - 0.5 % TBH NEUTROPHILS ABSOLUTE AUTO 4.2 1.4 - 6.5 10 3/uL TBH LYMPHOCYTES ABSOLUTE AUTO 1.3 1.2 - 3.8 10 3/uL TBH MONOCYTES ABSOLUTE AUTO 0.7 0.3 - 0.8 10 3/uL TBH TBH EO # 0.2 0.0 - 0.7 10 3/uL TBH BASOPHILS ABSOLUTE AUTO 0.0 0.0 - 0.1 10 3/uL TBH IMMATURE GRANULOCYTES ABS AUTO 0.01 0.00 - 0.03 10 3/uL [facility] 11/17/2024 6:57 AM EDT 11/17/2024 6:59 AM EDT Narrative CLINISYNC - 11/17/2024 7:22 AM EDT us Generic External Data Provider CLINISYNC F inal Result CL[facility]NC [facility] * MM TOMOSYNTHESIS SCREENING BI (02/11/2024 9:08 AM EST) Anatomical Region Laterality Modality Other 02/11/2024 9:08 AM EST Narrative 02/11/2024 9:09 AM EST The [address] [address] Mammography Report Signed Patient: TANIKA JENKINS MR#: [id number] : 1955 Acct:[id number] Age/Sex: 68 / F ADM Date: 02/11/24 Loc: MAMMO Attending Dr: RAMON CARROLL Ordering Physician: RAMON CARROLL Results: Date of Service: 02/11/24 Follow Up: Procedure(s): MM tomosynthesis screening BI Accession Number(s): [id number] cc: RAMON CARROLL Patient Name: TANIKA JENKINS MR#: [id number] : 1955 Exam Date: 02/11/2024 Ordering Doctor: [...] Treatments None Family Cancers None LOCATION: [facility] BREAST COMPOSITION: The breasts are extremely [...] Dictated By: Glenroy Bass M.D. Signed By: 11/908 DD/ 7 TD/TT: Dry Mixer: Procedure Note Radiology, Radiologist, - 02/11/2024 The [place] [id number] Mammography Report Signed Patient: TANIKA JENKINS LMR#: [id number] : 1955cct:[id number] Age/Sex: 68 / FADM Date: 02/11/24 Loc: MAMMO Attending Dr: RAMON CARROLL Ordering Physician: David CARROLLults: Date of Service: 02/11/24Follow Up: Procedure(s): MM tomosynthesis screening BI Accession Number(s): [id number] cc: RAMON CARROLL Patient Name: TANIKA JENKINS MR#: [id number] : 1955 Exam Date: 02/11/2024 Ordering Doctor: [...] Treatments None Family Cancers None LOCATION: [facility] BREAST COMPOSITION: The breasts are extremely [...] Bass M.D. Signed By:02/11/24908 DD/ 7 TD/TT: Dry Mixer: us Ramon Carroll MD CLINISYNC IMAGING Final Result * Cologuard?? colon cancer screening (02/14/2023 1:15 PM EST) NONINV COLON CA DNA+OCC BLD SCRN STL-IMP Negative Negative 02/24/2023 5:35 PM EST [facility] (CLIA #:[id number]) Comment: NEGATIVE TEST RESULT. A negative Cologuard [...] screened with both Cologuard and colonoscopy. (Jhon Corado al, N Engl J Med 2014;370(14):6175-3946) The normal value (reference range) for this assay is negative. COLOGUARD RE-SCREENING RECOMMENDATION: Periodic colorectal cancer screening is an important part of preventive healthcare for asymptomatic individuals at average risk for colorectal cancer. Following a negative Cologuard result, the [place] Cancer Society and U.S. Multi-Society Task Force screening guidelines recommend a Cologuard re-screening interval of 3 years. References: [place] [employer] Guideline for Colorectal Cancer Screening: https://www.cancer.org/cancer/jaawd-zrykkl-ttbrcg/ipwehpclo-uqgvyugmm-kwpvnqa/ac s-rec ommendations.html.; Vinnie DK, David CR, Robert ReisK, Colorectal Cancer Screening: Recommendations for Physicians and Patients from the U.S. Multi-Society Task Force on Colorectal Cancer Screening , Am J Gastroenterology 2017; 112:6399-8097. TEST DESCRIPTION: Composite algorithmic analysis of stool [...] screened with both Cologuard and colonoscopy. (Jhon Corado al, N Engl J Med 2014;370(14):8671-5382.) Cologuard may produce a false negative or false positive result (no colorectal cancer or precancerous polyp present at colonoscopy follow up). A negative Cologuard test result does not guarantee the absence of CRC or advanced adenoma (pre-cancer). The current Cologuard screening interval is every 3 years. ([place] Cancer Society and U.S. Multi-Society Task Force). Cologuard performance data in a 10,000 patient pivotal study using colonoscopy as the reference method can be accessed at the following location: www.[employer]END.[employer]/results. Additional description of the Cologuard test process, warnings and precautions can be found at www.cologHoolux Medicalrd.com. Stool specimen (specimen) 02/14/2023 1:15 PM EST 02/15/2023 5:51 PM EST us Ramon Carroll MD LAB MOLECULAR DIAGNOSTICS [facility] [place] Final Result .[email or web address] (CLIA #:[id number]) [address] [place] [address], [facility] (CLIA #:[id number]) [address] [id number] from Last 3 Months or Most Recently Relevant to Health Maintenance Insurance [employer] MEDICARE ADVANTAGE Care Teams Blower Mechanic Relationship Specialty Start Date End Date Ramon Carroll MD [address] [facility] [address] [place] [address] PCP - Amy FERREIRA 04/08/21 Ramon Carroll MD [address] [facility] [address] [place] [address] PCP - General Internal Medicine 08/06/22
--- OUTSIDE RECORDS SUMMARY | 2024-12-20 06:49 | XMS_ITS | Encounter Summary ---
Author Organization [facility] Address [address] [place] [address] Care Team Providers Care Color Maker Dyer Name Role Phone Ramon Carroll MD Primary Care Provider [phone] Virgil Haynes CNP Unavailable [phone] Reason for Visit * Reason Comments Med Refill Encounter Details Date Type Department Care Team (Late st Contact Info) Description 01/20/2023 Refill [facility] Urology [address] [facility] [address] [place] [address] Anthony Kunz MD [address] [place] [address] History of kidney transplant Social [...] Info) Description 04/06/2025 9:30 AM EST Follow-Up [facility] Transplant [address] [place] [id number] Alfredo Singh CNP [address] [place], [place] [id number] documented as of this encounter Visit Diagnoses Diagnosis History of kidney transplant Kidney replaced by transplant documented in this encounter Care Teams Color Maker Dyer Relationship Specialty Start Date End Date Ramon Carroll MD [address] [facility] [address] [place] [address] PCP - General 01/19/22 Virgil Haynes, CAROLA [address] [facility] [address] [place] [address] Nurse Practitioner Urology 03/19/22 documented as of this encounter
--- OUTSIDE RECORDS SUMMARY | 2024-12-20 06:49 | XMS_ITS | Clinical Summary ---
Author Organization [facility] Address [address] [place] [address] Care Team Providers Care Mds Nurse Name Role Phone Ramon Carroll MD Primary Care Provider [phone] Virgil Haynes CNP Unavailable [phone] Allergies No known active allergies Medications potassium [...] tablet 3 Active tacrolimus (Prograf) 0.5 mg capsuleIndications: History of kidney transplant TAKE 1 CAPSULE BY MOUTH EVERY MORNING AND 1 EVERY NIGHT AT BEDTIME 60 capsule 11 4 Active amLODIPine (Norvasc) 5 mg tabletIndications:H ypertension, unspecified type Take 1 tablet (5 mg) by mouth in the morning. 90 tablet 3 5 Active spironolactone (Aldactone) 25 mg tabletIndications:I mmunosuppression Take 1 tablet (25 mg) by mouth in the morning. 90 tablet 3 5 09/30/19 26 Active atorvastatin (Lipitor) 20 mg tabletIndications:H yperlipidemia, unspecified hyperlipidemia type Take 1 tablet (20 mg) by mouth at bedtime. 90 tablet 3 5 09/30/19 26 Active mycophenolate (Myfortic) 180 mg EC tabletIndications:I mmunosuppression Take 3 tablets (540 mg) by mouth two times daily. 240 tablet 4 5 Active Active Problems No known active problems Encounters Date Type Department Care Team Description 09/29/2024 9:00 AM EDT Follow-Up [facility] Transplant [address] [place] [address] Alfredo Singh CNP Immunosuppression (Primary Dx); Kidney replaced by transplant; Transplant follow-up; Hypertension, unspecified type; Hyperlipidemia, unspecified hyperlipidemia type; Impaired fasting blood sugar from Last 3 Months Family History Relation Name Status Comments Father Mother Social History Tobacco Use Types Packs/Day Years Used Date Smoking Tobacco: Never Smokeless Tobacco: Never Tobacco Cessation:Counseling Given: Not Answered Alcohol Use Standard Drinks/Week Comments Never 0 (1 standard drink = 0.6 oz pur e alcohol) PHQ-2 Answer Date Recorded Patient Health Questionnaire-2 Score 0 09/29/2024 MS Safety & Environment Answer Date Rec orded [...] Info) Description 04/06/2025 9:30 AM EST Follow-Up [facility] Transplant [address] [place] [phone] Savzyan, Alfredo, HOT KNIFE CUTTER [address] [place] [address] Health Maintenance Due Date Last Done Comments CT Colonography 1955 Colonoscopy 1955 FOBT 1955 Medicare Annual Wellness (AWV) 1955 Sigmoidoscopy 1955 Pneumococcal Vaccine: 50+ Years (1 of 2 - PCV) 11/12/1975 Adult Tetanus 1978 FIT 02/15/2024 02/14/2023 Mammogram 07/23/2024 07/23/2022 COVID-19 Vaccine (2024- season) 2024 02/19/2022, 03/28/2021, 06/07/2020 Influenza Vaccine (#1) 2024 , 01/10/2023, 02/19/2022, Additional history exists Depression Screening 09/29/2025 09/29/2024 Fall Risk Screening 09/29/2025 09/29/2024 Colorectal Cancer Screening 02/14/2026 FIT-DNA 02/14/2026 02/14/2023 Zoster Vaccines Completed 09/16/2022, 07/22/2022 HIB Vaccines [...] 10/27/24 09/29/2024 9:03 AM EDT Alfredo Singh HOT KNIFE CUTTER POINT OF CARE TEST ENTER/EDIT ORDERABLES Final Result from Last 3 Months Insurance [employer] MEDICARE ADVANTAGE AN[employer]M MEDICARE ADVANTAGE Care Teams Mds Nurse Relationship Specialty Start Date End Date Ramon Carroll MD [address] [facility] [address] [place] [address] PCP - General 01/19/22 Virgil Haynes, HOT KNIFE CUTTER [address] [facility] [address] [place] [address] Nurse Practitioner Urology 03/19/22
--- OUTSIDE RECORDS SUMMARY | 2024-12-20 06:49 | XMS_ITS | Encounter Summary ---
Author Organization [facility] Address [address] [facility] [place] [address] Care Team Providers Care Heel Seam Rubber Name Role Phone Raomn Carroll MD Unavailable [phone] Ramon Carroll MD Primary Care Provider [phone] Encounter Details Date Type Department Care Team (Late st Contact Info) Description 09/23/2022 Abstract [facility] [place] [facility] [address] [facility] [address] [place] [phone] Ramon Carroll MD [address] [place] [address] [place] [address] Social History Tobacco Use Types Packs/Day Years [...] on filedocumented in this encounter Care Teams Heel Seam Rubber Relationship Specialty Start Date End Date Ramon Carroll MD [address] [place] [address] [place] [address] PCP - Amy FERREIRA 04/08/21 Ramon Carroll MD [address] [place] [address] [place] [address] PCP - General Internal Medicine 08/06/22 documented as of this encounter
--- OUTSIDE RECORDS SUMMARY | 2024-12-20 06:49 | XMS_ITS ---
Author Organization The [facility] Address [address] [place] [address] Care Team Providers Care Aviation Engineer Name Role Phone Ramon Carroll MD Primary Care Provider [phone] Virgil Haynes CNP Unavailable [phone] Transplant Episode Kidney Recipient [facility] [place] Organ Received: Left Kidney Transplanted on 01/21/2013 Marked as Active Follow-up on 01/21/2013 Kidney CoordinatorMeenakshi Turner RN Phone: N/A Fax: N/A Email: N/A [place] Organ Diagnosis Organ Primary Contributory Kidney Polycystic [...] N/ A Britton Raza MD Surgeon N/A [phone] N/A Events Post-Transplant Pre-Transplant Admitted: 01/20/2013 Referred: 12/21/2009 Transplanted: 01/21/2013 Evaluation began: 1 Discharged: 01/26/2013 Center waitlisted: 1
--- OUTSIDE RECORDS SUMMARY | 2024-12-20 06:49 | XMS_ITS | Clinical Summary ---
Author Organization [facility] Address [id number] [address] [place] [address] Care Team Providers Care Manager People Name Role Phone Ramon Carroll MD Primary Care Provider [phone] Allergies No known active allergies Medications magnesium [...] Insurance [employer] Care Teams Manager People Relationship Specialty Start Date End Date Ramon Carroll MD [address], [place] [address] [place] [address] PCP - General Internal Medicine 01/25/18
--- OUTSIDE RECORDS SUMMARY | 2024-12-20 06:49 | XMS_ITS | Encounter Summary ---
Author Organization [facility] Address [address] [facility] [place] [address] Care Team Providers Care Packer Sausage And Wiener Name Role Phone Ramon Carroll MD Unavailable [phone] Ramon Carroll MD Primary Care Provider [phone] Encounter Details Date Type Department Care Team (Late st Contact Info) Description 10/30/2023 Orders Only [facility] [address] [place] [address] [place] [address] Daniela Chirinos LPN [address] [place] [address] Estrogen deficiency Social History Tobacco Use Types [...] documented as of this encounter Care Teams Packer Sausage And Wiener Relationship Specialty Start Date End Date Ramon Carroll MD [address] [place] [address] [place] [address] PCP - Amy FERREIRA 04/08/21 Ramon Carroll MD 112 [facility] [address] [place] [id number] PCP - General Internal Medicine 08/06/22 documented as of this encounter
--- OUTSIDE RECORDS SUMMARY | 2024-12-20 06:49 | XMS_ITS | Encounter Summary ---
Author Organization [facility] Address [address] [facility] [place] [address] Care Team Providers Care Instrument Sterilizer Name Role Phone Ramon Carroll MD Unavailable [phone] Ramon Carroll MD Primary Care Provider [phone] Encounter Details Date Type Department Care Team (Late st Contact Info) Description 04/09/2023 Abstract [facility] [address] [place] [address] Ramon Carroll MD [address] [place] [place], [place] [id number] Social History Tobacco Use Types Packs/Day Years [...] documented as of this encounter Care Teams Instrument Sterilizer Relationship Specialty Start Date End Date Ramon Carroll MD [address] [place] [place], [place] [id number] PCP - Amy FERREIRA 04/08/21 Ramon Carroll MD [address] [facility] [address] [place] [id number] PCP - General Internal Medicine 08/06/22 documented as of this encounter
--- OUTSIDE RECORDS SUMMARY | 2024-12-20 06:49 | XMS_ITS | Encounter Summary ---
Author Organization [facility] Address [address] [facility] [place] [address] Care Team Providers Care Castings Drafter Name Role Phone Ramon Carroll MD Unavailable [phone] Ramon Carroll MD Primary Care Provider [phone] Encounter Details Date Type Department Care Team (Late st Contact Info) Description 02/03/2023 Abstract [facility] [address] [place] [address] Ramon Carroll MD [address] [place], [place] [address] Social History Tobacco Use Types Packs/Day Years [...] documented as of this encounter Care Teams Castings Drafter Relationship Specialty Start Date End Date Ramon Carroll MD [address] [place] [address] [place], [place] [id number] PCP - Amy FERREIRA 04/08/21 Ramon Carroll MD [address] [facility] [address] [place] [id number] PCP - General Internal Medicine 08/06/22 documented as of this encounter
--- OUTSIDE RECORDS SUMMARY | 2024-12-20 06:49 | XMS_ITS | Encounter Summary ---
Author Organization [facility] Address [address] [place] [address] Care Team Providers Care Educational Diagnostician Name Role Phone Ramon Carroll MD Unavailable [phone] Ramon Carroll MD Primary Care Provider [phone] Encounter Details Date Type Department Care Team (Late st Contact Info) Description 02/11/2024 Clinisync Result Encounter [facility] External Department Unsolicited Ramon Carroll MD [address] [facility] [address] [place] [address] Social History Tobacco Use Types Packs/Day Years [...] EST Narrative 02/11/2024 9:09 AM EST [facility] [place] [id number] Mammography Report Signed Patient: TANIKA JENKINS MR#: [id number] : 1955 Acct:[id number] Age/Sex: 68 / F ADM Date: 02/11/24 Loc: MAMMO Attending Dr: RAMON CARROLL Ordering Physician: RAMON CARROLL Results: Date of Service: 02/11/24 Follow Up: Procedure(s): MM tomosynthesis screening BI Accession Number(s): [id number] cc: RAMON CARROLL Patient Name: TANIKA JENKINS MR#: [id number] : 1955 Exam Date: 02/11/2024 Ordering Doctor: [...] Treatments None Family Cancers None LOCATION: [facility] BREAST COMPOSITION: The breasts are extremely [...] M.D. Signed By: 02/11/24908 DD/ 7 TD/TT: Multimedia Services Manager: Procedure Note Radiology, Radiologist, - 02/11/2024 [facility] [place] [id number] Mammography Report Signed Patient: TANIKA JENKINS LMR#: [id number] : 1955cct:[id number] Age/Sex: 68 / FADM Date: 02/11/24 Loc: MAMMO Attending Dr: RAMON CARROLL Ordering Physician: RAMON CARROLLResults: Date of Service: 02/11/24Follow Up: Procedure(s): MM tomosynthesis screening BI Accession Number(s): [id number] cc: UZMAOLIVERAMON Patient Name: TANIKA JENKINS MR#: [id number] : 1955 Exam Date: 02/11/2024 Ordering Doctor: [...] Treatments None Family Cancers None LOCATION: [facility] BREAST COMPOSITION: The breasts are extremely [...] Bass M.D. Signed By:02/11/24908 DD/ 7 TD/TT: Multimedia Services Manager: Ramon Carroll MD [facility] Final Result documented in this encounter Visit Diagnoses Not on filedocumented in this encounter Additional Health Concerns Assessment Noted Time PHQ-9 Depression Total Score: 1 01/31/20 23 8:00 AM EDT documented as of this encounter Care Teams Educational Diagnostician Relationship Specialty Start Date End Date Ramon Carroll MD [address] [facility] [address] [place] [address] PCP - Amy FERREIRA 04/08/21 Ramon Carroll MD [address] [facility] 110 [place] [address] PCP - General Internal Medicine 08/06/22 documented as of this encounter
--- OUTSIDE RECORDS SUMMARY | 2024-12-20 06:49 | XMS_ITS | Encounter Summary ---
Author Organization [facility] Address [address] [facility] [place] [address] Care Team Providers Care Auto Service Station Attendant Name Role Phone Ramon Carroll MD Unavailable [phone] Ramon Carroll MD Primary Care Provider [phone] Encounter Details Date Type Department Care Team (Late st Contact Info) Description 03/28/2023 Abstract [facility] [address] [place] [address] Ramon Carroll MD [address] [place] [place], [place] [phone] Social History Tobacco Use Types Packs/Day Years [...] documented as of this encounter Care Teams Auto Service Station Attendant Relationship Specialty Start Date End Date Ramon Carroll MD [address] [place] [address] [place], [place] [phone] PCP - Amy FERREIRA 04/08/21 Ramon Carroll MD [address] [facility] [address] [place] [id number] PCP - General Internal Medicine 08/06/22 documented as of this encounter
--- OUTSIDE RECORDS SUMMARY | 2024-12-20 06:50 | XMS_ITS | CCD ---
Author Organization [facility] Care Team Providers Care Junior Systems Engineer Name Role Phone TANANA, DINKAR Unavailable Unavailable TANANA, DINKAR Unavailable Unavailable CARROLL, RAMON Unavailable Unavailable [...] Attending Unavailable MISC, DR OBRIEN Admitting Unavailable TANANA, DR CONNORS Consulting Unavailable CARROLL, DR DARBY Primary Care Unavailable MISC, DR OBRIEN Attending Unavailable MISC, DR OBRIEN Admitting Unavailable MISC, DR OBRIEN Attending Unavailable MISC, DR OBRIEN Admitting Unavailable MISC, DR OBRIEN Consulting Unavailable CARROLL, DR DARBY Primary Care Unavailable TANANA, DR CONNORS Consulting Unavailable TANANA, DR CONNORS Attending Unavailable CARROLL, DR DARBY Primary Care Unavailable TANANA, DR CONNORS Admitting Unavailable TANANA, DR CONNORS Attending Unavailable CARROLL, DR DARBY Primary Care Unavailable TANANA, DR CONNORS Admitting Unavailable TANANA, DR CONNORS Consulting Unavailable MISC, DR OBRIEN [...] Unavailable CARROLL, DR DARBY Primary Care Unavailable TANANA, DR CONNORS Consulting Unavailable TANANA, DR CONNORS Attending Unavailable CARROLL, DR DARBY Primary Care Unavailable TANANA, DR CONNORS Admitting Unavailable MISC, DOCTOR Attending Unavailable MISC, DR OBRIEN Admitting Unavailable MISC, DR OBRIEN Consulting Unavailable CARROLL, DR DARBY Primary Care Unavailable MISC, DOCTOR Attending Unavailable MISC, DR OBRIEN Admitting Unavailable MISC, DR OBRIEN Consulting Unavailable CARROLL, DR DARBY Primary Care Unavailable TANANA, DR CONNORS Consulting Unavailable TANANA, DR CONNORS Attending Unavailable DR DORY BARNES Admitting Unavailable DR RAMON CARROLL Primary Care Unavailable Ramon Carroll MD Unavailable Ramon Carroll MD Primary Care Provider ESTER PADILLA Attending Unavailable ESTER PADILLA Attending Unavailable ASHLI CARTER Attending Unavailable ASHLI CARTER Attending Unavailable Medications Current Medications Medication Drug Class(es) Dates Sig (Normalized) Sig (Original) [id number] 200 actuat albuterol 0.09 mg/actuat metered dose [...] 06/08/2024 Active atorvastatin 20 mg oral tablet (16 sources) HMG-CoA Reductase Inhibitor Start: 08-30-2023 take 20 mg by mouth once daily at bedtime Atorvastatin Active 20 MG PO Daily at bedtime August 30, 2023 12:00am baclofen 10 mg oral tablet (15 sources) gamma-Aminobutyric Acid-ergic Agonist Start: 03-06-2023 take [...] 1.5 mg/ml oral solution (1 source) Uncompetitive C-ikhlkr-[place] te Receptor Antagonist, Sigma-1 Agonist Start: 03-27-2023 take 10 mL by mouth every eight hours [place] DM 7.5-7.5 MG/5ML 10 mL Orally every 8 hours for 5 days Feb, Active ergocalciferol 1.25 mg oral capsule (9 sources) Provitamin D2 Compound Start: 06-27-2011 take 1 capsule by mouth every week Vitamin D (Ergocalciferol) 36285 UNIT 1 capsule Orally Once a Week for 90 days May, Active Start: 06-27-2011 everolimus (6 sources) Kinase Inhibitor, mTOR Inhibitor Immunosuppressant Zortress Active ferrous fumarate 325 mg oral tablet (16 sources) Start: Ferrous Fumarate 325 (106 Fe) [...] acid 180 mg delayed release oral tablet (15 sources) Antimetabolite Immunosuppressant Start: 01-27-2023 take 3 tablets by mouth in the morning mycophenolate (Myfortic) 180 MG EC tablet Take 3 tablets by mouth in the morning and 3 tablets before bedtime. 01/27/2023 Active nystatin 609809 unt/ml oral suspension (16 sources) Polyene Antifungal Start: 09-02-2023 take 5 mL by mouth four times daily nystatin (Mycostatin) [id number] UNIT/ML suspension Indications: Thrush, oral SWISH AND SWALLOW 5 MLS ORALLY 4 TIMES A DAY FOR 10 DAYS 60 mL 1 09/02/2023 Active Start: 08-30-2023 take 1 mL by mouth f our times daily Nystatin Active 5 ML PO Four times daily 200 10 August 30, 2023 12:00am swish and swallow [place] 5-Xpu-Vgi-Fish Oil (Fish Oil) 1,000 mg (120 mg-180 mg) capsule (1 source) Start: 08-30-2023 take 1 capsule by mouth once daily [place] 8-Xpg-Suw-Fish Oil (Fish Oil) 1,000 mg (120 mg-180 mg) capsule Active 1 CAP PO Daily August 30, 2023 12:00am PARoxetine hydrochloride 20 mg oral tablet (17 sources) Serotonin Reuptake Inhibitor Start: 08-30-2023 Paroxetine Hcl Active MG PO August 30, 2023 12:00am Start: 03-06-2023 End: 10-14-2024 take 1 tablet by mouth in the morning PARoxetine (Paxil) 20 MG tablet Indications: Current moderate episode of major depressive disorder without prior episode (HCC) Take 1 tablet (20 mg) by mouth in the morning. 90 tablet 2 10/14/2024 Active phenazopyridine hydrochloride 200 mg oral tablet [...] day for 30 day(s) Active vitamin B12 (18 sources) Vitamin B12 Start: 08-30-2023 take 1 [...] [Other specified counseling] 06-01-2024 Episodic Anxiety disorders (20 sources) Mixed anxiety and depressive disorder; Translations: [...] type] Onset: 4 08-30-2023 Chronic Immunity disorders (11 sources) Immunosuppression; Translations: [Immunodeficiency, unspecified] Onset: 5 06-01-2024 Chronic Immunizations and screening for infectious disease (6 sources) Contact with and (suspected) exposure to other viral communicable diseases; Translations: [Contact with and (suspected) exposure to other viral communicable diseases] Episodic Menopausal disorders (17 sources) Decreased estrogen level; 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-2023 Chronic Mood disorders (18 sources) Moderate major depression, single episode; Translations: [Major depressive disorder, single episode, moderate] Onset: 3 03-06-2023 Chronic Other acquired deformities (17 sources) Contracture of joint of foot; Translations: [...] Chronic Other nutritional; endocrine; and metabolic disorders (11 sources) Hypomagnesemia; Translations: [Hypomagnesemia] Onset: 5 06-01-2024 [...] 04-01-2024 Episodic Diseases of mouth; excluding dental (16 sources) Other lesions of oral mucosa; Translations: [Parotitis] Onset: 01-29-2023 Resolved: 01-30-2023 Episodic Genitourinary symptoms and ill-defined conditions (10 sources) Hematuria, unspecified; Translations: [Dysuria] Onset: 12-31-2017 Resolved: 08-14-2021 Episodic Mood disorders (15 sources) Mood disorders Onset: 01-30-2023 Resolved: 06-01-2024 01-30-2023 Mycoses (17 sources) Candidiasis of mouth; Translations: [Candidal stomatitis] Onset: 09-02-2023 Resolved: 06-01-2024 08-30-2023 Episodic Other aftercare (1 source) Encounter for therapeutic drug level monitoring; Translations: [ENCOUNTER FOR THERAPEUTIC DRUG LEVEL MONITORING] Onset: 03-27-2017 Episodic Other aftercare (2 sources) Other bucket operator (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 therapy; Translations: [OTHER CUSTODIAL (CURRENT) DRUG THERAPY] Onset: 02-26-2017 Episodic Other liver diseases (17 sources) Alkaline phosphatase raised; Translations: [Abnormal levels [...] Resolved: 10-27-2021 Episodic Other upper respiratory infections (15 sources) Sinusitis; Translations: [Chronic sinusitis, unspecified] Onset: [...] WITH AUTO DIFFon BASOPHILS ABSOLUTE AUTO 0 [facility] Basophils/100 WBC (Bld) 0.2 % 0.2 - 2.0 % [facility] Eosinophils/100 WBC (Bld) 2.8 % 0.9 - 7.0 % [facility] Erythrocyte distribution width (RBC) [Ratio] 14.8 % 11.0 - 15.0 % [facility] Hematocrit (Bld) [Volume fraction] 45.5 % 36.0 - 48.0 % [facility] Hemoglobin (Bld) [Mass/Vol] 15 g/dL 12.0 - 16.0 g/dL [facility] IMMATURE GRANULOCYTES ABS AUTO 0.01 [facility] Immature granulocytes/100 WBC (Bld) 0.2 % 0.0 - 0.5 % [facility] Interpretation and review of laboratory results Abnormal [facility] LYMPHOCYTES ABSOLUTE AUTO 1.3 [facility] Lymphocytes/100 WBC (Bld) 19.8 % Low 20.5 - 60.0 % [facility] MCH (RBC) [Entitic mass] 30.9 pg 26.7 - 34.0 pg [facility] MCHC (RBC) [Mass/Vol] 33 g/dL 29.9 - 35.2 g/dL [facility] MCV (RBC) [Entitic vol] 93.6 fL 81.0 - 99.0 fL [facility] MONOCYTES ABSOLUTE AUTO 0.7 [facility] Monocytes/100 WBC (Bld) 11 % 1.7 - 12.0 % [facility] NEUTROPHILS ABSOLUTE AUTO 4.2 [facility] Neutrophils/100 WBC (Bld) 66 % 43.0 - 75.0 % [facility] Platelet mean volume (Bld) [Entitic vol] 11 fL 9.5 - 13.5 fL [facility] TBH EO # 0.2 [facility]H PLT [address] [facility] RBC 4.86 [facility] WBC 6.4 [facility] ALL MAGNESIUMon 10-20-2024 Magnesium [Mass/Vol] 2 mg/dL 1.8 - 2 .4 mg/dL [facility] ALL PHOSPHOROUSon 10-20-2024 Phosphate [Mass/Vol] 3.5 mg/dL 2.6 - 4 .7 mg/dL [facility] ALL URIC ACIDon 10-20-2024 Urate [Mass/Vol] 5.7 mg/dL 2.6 - 6.0 mg/dL [facility] CMP (CMP) (FOR REMOTE FH C USE)on 10-20-2024 Albumin [Mass/Vol] 3.5 g/dL 3.4 - 5.0 g/dL [facility] ALBUMIN GLOBULIN RATIO 1.1 [facility] ALP [Catalytic activity/Vol] 142 U/L High 46 - 116 U/L [facility] ALT [Catalytic activity/Vol] 22 U/L 14 - 59 U/L [facility] Anion gap [Moles/Vol] 11.5 mmol/L [facility] AST [Catalytic activity/Vol] 16 U/L 15 - 37 U/L [facility] Bilirubin [Mass/Vol] 0.7 mg/dL 0.2 - 1 .0 mg/dL [facility] Calcium [Mass/Vol] 9.4 mg/dL 8.5 - 10. 1 mg/dL [facility] Chloride [Moles/Vol] 106 mmol/L 98 - 10 7 mmol/L [facility] CO2 [Moles/Vol] 30.6 mmol/L 21.0 - 32.0 mmol/L [facility] Creatinine [Mass/Vol] 0.85 mg/dL 0.55 - 1.02 mg/dL [facility] GFR/1.73 sq M.predicted CKD-EPI (S/P/Bld) [Vol rate/Area] >60 >=60 mL/min/1.73m 2 [facility] Globulin (S) [Mass/Vol] 3.3 g/dL [facility] Glucose [Mass/Vol] 101 mg/dL 74 - 106 mg/dL [facility] Interpretation and review of laboratory results Abnormal [facility] Potassium [Moles/Vol] 4.1 mmol/L 3.5 - 5.1 mmol/L [facility] Protein [Mass/Vol] 6.8 g/dL 6.4 - 8.2 g/dL [facility] Sodium [Moles/Vol] 144 mmol/L 136 - 145 mmol/L [facility] TBH EGFR-NON AF ZIMBABWEAN >60 >=60 mL/min/1.73m 2 [facility] Urea nitrogen [Mass/Vol] 15 mg/dL 7.0 - 18.0 mg/dL [facility] Urea nitrogen/Creatinine [Mass ratio] 17.6 mg/mg [facility] METRO BILIRUBIN, DIRECTon Bilirubin.indirect [Mass/Vol] 0.1 mg/dL 0.0 - 0.2 mg/dL [facility] No Panel Informationon 10-20 [facility] Follow-Upon 09-29-2024 Follow-Up [id number] Tanika Grimm 1955 F Date Provider Department Center 09/29/2024 [id number] CARTER TXP None Family History Family Status - Relation Status Age at Mother Father Level of Service:58542 [place] OFFICE/OUTPATIENT ESTABLISHED MOD MDM 30 MIN Reason for Visit and Comments: Kidney Follow-up [[id number]] - Patient has no concerns at this time. Normal [facility] ALL CBC WITH AUTO DIFFon BASOPHILS ABSOLUTE AUTO 0 [facility] Basophils/100 WBC (Bld) 0.1 % Low 0.2 - 2.0 % [facility] Eosinophils/100 WBC (Bld) 2.4 % 0.9 - 7.0 % [facility] Erythrocyte distribution width (RBC) [Ratio] 15 % 11.0 - 15.0 % [facility] Hematocrit (Bld) [Volume fraction] 45.6 % 36.0 - 48.0 % [facility] Hemoglobin (Bld) [Mass/Vol] 15 g/dL 12.0 - 16.0 g/dL [facility] IMMATURE GRANULOCYTES ABS AUTO 0.02 [facility] Immature granulocytes/100 WBC (Bld) 0.3 % 0.0 - 0.5 % [facility] Interpretation and review of laboratory results Abnormal [facility] LYMPHOCYTES ABSOLUTE AUTO 1.2 [facility] Lymphocytes/100 WBC (Bld) 15.3 % Low 20.5 - 60.0 % [facility] MCH (RBC) [Entitic mass] 30.9 pg 26.7 - 34.0 pg [facility] MCHC (RBC) [Mass/Vol] 32.9 g/dL 29.9 - 35.2 g/dL [facility] MCV (RBC) [Entitic vol] 94 fL 81.0 - 99.0 fL [facility] MONOCYTES ABSOLUTE AUTO 0.8 [facility] Monocytes/100 WBC (Bld) 10 % 1.7 - 12.0 % [facility] NEUTROPHILS ABSOLUTE AUTO 5.4 [facility] Neutrophils/100 WBC (Bld) 71.9 % 43.0 - 75.0 % [facility] Platelet mean volume (Bld) [Entitic vol] 11.3 fL 9.5 - 13.5 fL [facility] RBC 4.85 [facility] WBC 7.5 [facility] ALL CBC WITH AUTO DIFFon BASOPHILS ABSOLUTE AUTO 0 [facility] Basophils/100 WBC (Bld) 0.2 % 0.2 - 2.0 % [facility] Eosinophils/100 WBC (Bld) 2.9 % 0.9 - 7.0 % [facility] Erythrocyte distribution width (RBC) [Ratio] 14.8 % 11.0 - 15.0 % [facility] Hematocrit (Bld) [Volume fraction] 46.8 % 36.0 - 48.0 % [facility] Hemoglobin (Bld) [Mass/Vol] 15.2 g/dL 12.0 - 16.0 g/dL [facility] IMMATURE GRANULOCYTES ABS AUTO 0.02 [facility] Immature granulocytes/100 WBC (Bld) 0.3 % 0.0 - 0.5 % [facility] LYMPHOCYTES ABSOLUTE AUTO 1.5 [facility] Lymphocytes/100 WBC (Bld) 21.9 % 20.5 - 60.0 % [facility] MCH (RBC) [Entitic mass] 30.5 pg 26.7 - 34.0 pg [facility] MCHC (RBC) [Mass/Vol] 32.5 g/dL 29.9 - 35.2 g/dL [facility] MCV (RBC) [Entitic vol] 93.8 fL 81.0 - 99.0 fL [facility] MONOCYTES ABSOLUTE AUTO 0.7 [facility] Monocytes/100 WBC (Bld) 10.5 % 1.7 - 12.0 % [facility] NEUTROPHILS ABSOLUTE AUTO 4.3 [facility] Neutrophils/100 WBC (Bld) 64.2 % 43.0 - 75.0 % [facility] Platelet mean volume (Bld) [Entitic vol] 11.7 fL 9.5 - 13.[address] [facility] EO # 0.[address] [facility] PLT [address] [facility] RBC 4.99 [facility] WBC 6.7 [facility] ALL CBC WITH AUTO DIFFon BASOPHILS ABSOLUTE AUTO 0 [facility] Basophils/100 WBC (Bld) 0.1 % Low 0.2 - 2.0 % [facility] Eosinophils/100 WBC (Bld) 3.4 % 0.9 - 7.0 % [facility] Erythrocyte distribution width (RBC) [Ratio] 14.7 % 11.0 - 15.0 % [facility] Hematocrit (Bld) [Volume fraction] 43.1 % 36.0 - 48.0 % [facility] Hemoglobin (Bld) [Mass/Vol] 13.9 g/dL 12.0 - 16.0 g/dL [facility] IMMATURE GRANULOCYTES ABS AUTO 0.01 [facility] Immature granulocytes/100 WBC (Bld) 0.1 % 0.0 - 0.5 % [facility] Interpretation and review of laboratory results Abnormal [facility] LYMPHOCYTES ABSOLUTE AUTO 1.3 [facility] Lymphocytes/100 WBC (Bld) 18.5 % Low 20.5 - 60.0 % [facility] MCH (RBC) [Entitic mass] 30.5 pg 26.7 - 34.0 pg [facility] MCHC (RBC) [Mass/Vol] 32.3 g/dL 29.9 - 35.2 g/dL [facility] MCV (RBC) [Entitic vol] 94.5 fL 81.0 - 99.0 fL [facility] MONOCYTES ABSOLUTE AUTO 0.7 [facility] Monocytes/100 WBC (Bld) 9.9 % 1.7 - 12.0 % [facility] NEUTROPHILS ABSOLUTE AUTO 4.8 [facility] Neutrophils/100 WBC (Bld) 68 % 43.0 - 75.0 % [facility] Platelet mean volume (Bld) [Entitic vol] 11.6 fL 9.5 - 13.[address] [facility] EO # 0.[address] [facility] PLT [address] [facility] RBC 4.56 [facility] WBC 7.1 [facility] ALL CBC WITH AUTO DIFFon BASOPHILS ABSOLUTE AUTO 0 [facility] Basophils/100 WBC (Bld) 0.2 % 0.2 - 2.0 % [facility] Eosinophils/100 WBC (Bld) 2.7 % 0.9 - 7.0 % [facility] Erythrocyte distribution width (RBC) [Ratio] 14.6 % 11.0 - 15.0 % [facility] Hematocrit (Bld) [Volume fraction] 46.2 % 36.0 - 48.0 % [facility] Hemoglobin (Bld) [Mass/Vol] 14.8 g/dL 12.0 - 16.0 g/dL [facility] IMMATURE GRANULOCYTES ABS AUTO 0.01 [facility] Immature granulocytes/100 WBC (Bld) 0.2 % 0.0 - 0.5 % [facility] LYMPHOCYTES ABSOLUTE AUTO 1.4 [facility] Lymphocytes/100 WBC (Bld) 22.2 % 20.5 - 60.0 % [facility] MCH (RBC) [Entitic mass] 30.6 pg 26.7 - 34.0 pg [facility] MCHC (RBC) [Mass/Vol] 32 g/dL 29.9 - 35.2 g/dL [facility] MCV (RBC) [Entitic vol] 95.7 fL 81.0 - 99.0 fL [facility] MONOCYTES ABSOLUTE AUTO 0.7 [facility] Monocytes/100 WBC (Bld) 10.3 % 1.7 - 12.0 % [facility] NEUTROPHILS ABSOLUTE AUTO 4.1 [facility] Neutrophils/100 WBC (Bld) 64.4 % 43.0 - 75.0 % [facility] Platelet mean volume (Bld) [Entitic vol] 11.1 fL 9.5 - 13.5 [facility]L [facility] RBC 4.83 [facility] WBC 6.4 [facility] ALL CBC WITH AUTO DIFFon BASOPHILS ABSOLUTE AUTO 0 [facility] Basophils/100 WBC (Bld) 0.3 % 0.2 - 2.0 % [facility] Eosinophils/100 WBC (Bld) 2.8 % 0.9 - 7.0 % [facility] Erythrocyte distribution width (RBC) [Ratio] 14.9 % 11.0 - 15.0 % [facility] Hematocrit (Bld) [Volume fraction] 44.3 % 36.0 - 48.0 % [facility] Hemoglobin (Bld) [Mass/Vol] 14.2 g/dL 12.0 - 16.0 g/dL [facility] IMMATURE GRANULOCYTES ABS AUTO 0.02 [facility] Immature granulocytes/100 WBC (Bld) 0.3 % 0.0 - 0.5 % [facility] Interpretation and review of laboratory results Abnormal [facility] LYMPHOCYTES ABSOLUTE AUTO 1.2 [facility] Lymphocytes/100 WBC (Bld) 17.3 % Low 20.5 - 60.0 % [facility] MCH (RBC) [Entitic mass] 30.5 pg 26.7 - 34.0 pg [facility] MCHC (RBC) [Mass/Vol] 32.1 g/dL 29.9 - 35.2 g/dL [facility] MCV (RBC) [Entitic vol] 95.3 fL 81.0 - 99.0 fL [facility] MONOCYTES ABSOLUTE AUTO 0.7 [facility] Monocytes/100 WBC (Bld) 9.4 % 1.7 - 12.0 % [facility] NEUTROPHILS ABSOLUTE AUTO 5 [facility] Neutrophils/100 WBC (Bld) 69.9 % 43.0 - 75.0 % [facility] Platelet mean volume (Bld) [Entitic vol] 11.5 fL 9.5 - 13.5 fL [facility] TBH EO # 0.2 [facility] TBH PLT [address] [facility] RBC 4.65 [facility] WBC 7.1 [facility] 29on 04-01-2024 29 Addended by: ESTER FREDERICK on: 04/01/2024 02:20 PM Modules accepted: Orders Normal [facility] Follow-Upon 04-01-2024 Follow-Up [id number] Tanika Grimm 1955 F Date Provider Department Center 04/01/2024 [id number] CARTER None Family History Family Status - Relation Status Age at Mother Father Level of Service:84454 [place] OFFICE/OUTPATIENT ESTABLISHED MOD MDM 30 MIN Reason for Visit and Comments: Kidney Follow-up [[id number]] - Pt has no concerns at this time. [facility] ALL CBC WITH AUTO DIFFon BASOPHILS ABSOLUTE AUTO 0 [facility] Basophils/100 WBC (Bld) 0.2 % 0.2 - 2.0 % [facility] Eosinophils/100 WBC (Bld) 2.2 % 0.9 - 7.0 % [facility] Erythrocyte distribution width (RBC) [Ratio] 14.8 % 11.0 - 15.0 % [facility] Hematocrit (Bld) [Volume fraction] 45.3 % 36.0 - 48.0 % [facility] Hemoglobin (Bld) [Mass/Vol] 14.4 g/dL 12.0 - 16.0 g/dL [facility] IMMATURE GRANULOCYTES ABS AUTO 0.02 [facility] Immature granulocytes/100 WBC (Bld) 0.2 % 0.0 - 0.5 % [facility] Interpretation and review of laboratory results Abnormal [facility] LYMPHOCYTES ABSOLUTE AUTO 1.5 [facility] Lymphocytes/100 WBC (Bld) 18.6 % Low 20.5 - 60.0 % [facility] MCH (RBC) [Entitic mass] 30.6 pg 26.7 - 34.0 pg [facility] MCHC (RBC) [Mass/Vol] 31.8 g/dL 29.9 - 35.2 g/dL [facility] MCV (RBC) [Entitic vol] 96.4 fL 81.0 - 99.0 fL [facility] MONOCYTES ABSOLUTE AUTO 0.8 [facility] Monocytes/100 WBC (Bld) 10 % 1.7 - 12.0 % [facility] NEUTROPHILS ABSOLUTE AUTO 5.5 [facility] Neutrophils/100 WBC (Bld) 68.8 % 43.0 - 75.0 % [facility] Platelet mean volume (Bld) [Entitic vol] 11.4 fL 9.5 - 13.5 fL [facility] RBC 4.7 [facility] WBC 8.1 [facility] TACROLIMUS ([id number]), BLOODon 02-17-2024 TACROLIMUS (FK506), BLOOD 4.5 ng/mL 2.0 - 20.0 ng/mL [facility] Comment on above: This test was develo ped and its performance characteristics determined by [facility]. It has not been cleared or approved by the Food and Drug Administration. Trough (immediately following transplant) 15.0 Trough (steady state, 2 weeks or more after transplant): 3.0 - 8.0 Performed by LC-MS/MS technology. Performed at: [facility] [address] [id number] Internet Marketing Manager: Marizol Singleton MD, Phone: [phone] [facility][note 3] ALL CBC WITH AUTO DIFFon BASOPHILS ABSOLUTE AUTO 0 [facility] Basophils/100 WBC (Bld) 0.3 % 0.2 - 2.0 % [facility] Eosinophils/100 WBC (Bld) 2.1 % 0.9 - 7.0 % [facility] Erythrocyte distribution width (RBC) [Ratio] 14.7 % 11.0 - 15.0 % [facility] Hematocrit (Bld) [Volume fraction] 43.3 % 36.0 - 48.0 % [facility] Hemoglobin (Bld) [Mass/Vol] 14.2 g/dL 12.0 - 16.0 g/dL [facility] IMMATURE GRANULOCYTES ABS AUTO 0.03 [facility] Immature granulocytes/100 WBC (Bld) 0.4 % 0.0 - 0.5 % [facility] LYMPHOCYTES ABSOLUTE AUTO 1.4 [facility] Lymphocytes/100 WBC (Bld) 20.7 % 20.5 - 60.0 % [facility] MCH (RBC) [Entitic mass] 30.9 pg 26.7 - 34.0 pg [facility] MCHC (RBC) [Mass/Vol] 32.8 g/dL 29.9 - 35.2 g/dL [facility] MCV (RBC) [Entitic vol] 94.1 fL 81.0 - 99.0 fL [facility] MONOCYTES ABSOLUTE AUTO 0.7 [facility] Monocytes/100 WBC (Bld) 10.8 % 1.7 - 12.0 % [facility] NEUTROPHILS ABSOLUTE AUTO 4.4 [facility] Neutrophils/100 WBC (Bld) 65.7 % 43.0 - 75.0 % [facility] Platelet mean volume (Bld) [Entitic vol] 11.3 fL 9.5 - 13.5 fL [facility] TBH EO # 0.1 [facility] TB PLT 193 [facility] TB RBC 4.6 [facility] TBH WBC 6.7 [facility] ALL MAGNESIUMon 02-13-2024 Magnesium [Mass/Vol] 1.7 mg/dL Low 1.8 - 2 .4 mg/dL [facility] ALL PHOSPHOROUSon 02-13-2024 Phosphate [Mass/Vol] 3.4 mg/dL 2.6 - 4 .7 mg/dL [facility] ALL URIC ACIDon 02-13-2024 Urate [Mass/Vol] 4.7 mg/dL 2.6 - 6.0 mg/dL [facility] CMP (CMP) (FOR REMOTE FH C USE)on 02-13-2024 Albumin [Mass/Vol] 3.6 g/dL 3.4 - 5.0 g/dL [facility] ALBUMIN GLOBULIN RATIO 1.2 [facility] ALP [Catalytic activity/Vol] 131 U/L High 46 - 116 U/L [facility] ALT [Catalytic activity/Vol] 16 U/L 14 - 59 U/L [facility] Anion gap [Moles/Vol] 14 mmol/L [facility] AST [Catalytic activity/Vol] 13 U/L Low 15 - 37 U/L [facility] Bilirubin [Mass/Vol] 0.6 mg/dL 0.2 - 1 .0 mg/dL [facility] Calcium [Mass/Vol] 9.1 mg/dL 8.5 - 10. 1 mg/dL [facility] Chloride [Moles/Vol] 108 mmol/L High 98 - 10 7 mmol/L [facility] CO2 [Moles/Vol] 26.1 mmol/L 21.0 - 32.0 mmol/L [facility] [facility] Creatinine [Mass/Vol] 0.97 mg/dL 0.55 - 1.02 mg/dL [facility] GFR/1.73 sq M.predicted CKD-EPI (S/P/Bld) [Vol rate/Area] >60 >=60 mL/min/1.73m 2 [facility] Globulin (S) [Mass/Vol] 2.9 g/dL [facility] Glucose [Mass/Vol] 95 mg/dL 74 - 106 mg/dL [facility] Potassium [Moles/Vol] 4.1 mmol/L 3.5 - 5.1 mmol/L [facility] Protein [Mass/Vol] 6.5 g/dL 6.4 - 8.2 g/dL [facility] Sodium [Moles/Vol] 144 mmol/L 136 - 145 mmol/L [facility] TBH EGFR-NON AF ZIMBABWEAN 57 Low >=60 mL/min/1.73m 2 [facility] Urea nitrogen [Mass/Vol] 16 mg/dL 7.0 - 18.0 mg/dL [facility] Urea nitrogen/Creatinine [Mass ratio] 16.5 mg/mg [facility] METRO BILIRUBIN, DIRECTon Bilirubin.indirect [Mass/Vol] 0.1 mg/dL 0.0 - 0.2 mg/dL [facility] No Panel Informationon 02-12 Interpretation and review of laboratory results Abnormal [facility] ALL CBC WITH AUTO DIFFon BASOPHILS ABSOLUTE AUTO 0 [facility] Basophils/100 WBC (Bld) 0.1 % Low 0.2 - 2.0 % [facility] Eosinophils/100 WBC (Bld) 2.5 % 0.9 - 7.0 % [facility] Erythrocyte distribution width (RBC) [Ratio] 14.6 % 11.0 - 15.0 % [facility] Hematocrit (Bld) [Volume fraction] 43.8 % 36.0 - 48.0 % [facility] Hemoglobin (Bld) [Mass/Vol] 14 g/dL 12.0 - 16.0 g/dL [facility] IMMATURE GRANULOCYTES ABS AUTO 0.02 [facility] Immature granulocytes/100 WBC (Bld) 0.3 % 0.0 - 0.5 % [facility] Interpretation and review of laboratory results Abnormal [facility] LYMPHOCYTES ABSOLUTE AUTO 1.4 [facility] Lymphocytes/100 WBC (Bld) 18.7 % Low 20.5 - 60.0 % [facility] MCH (RBC) [Entitic mass] 30.3 pg 26.7 - 34.0 pg [facility] MCHC (RBC) [Mass/Vol] 32 g/dL 29.9 - 35.2 g/dL [facility] MCV (RBC) [Entitic vol] 94.8 fL 81.0 - 99.0 fL [facility] MONOCYTES ABSOLUTE AUTO 0.8 [facility] Monocytes/100 WBC (Bld) 11.1 % 1.7 - 12.0 % [facility] NEUTROPHILS ABSOLUTE AUTO 4.9 [facility] Neutrophils/100 WBC (Bld) 67.3 % 43.0 - 75.0 % [facility] Platelet mean volume (Bld) [Entitic vol] 11.2 fL 9.5 - 13.5 fL [facility] TBH EO # 0.2 [facility] 4.62 [facility] WBC 7.3 [facility] ALL CBC WITH AUTO DIFFon BASOPHILS ABSOLUTE AUTO 0.0 [facility] Basophils/100 WBC (Bld) 0.3 % 0.2 - 2.0 % [facility] Eosinophils/100 WBC (Bld) 3.6 % 0.9 - 7.0 % [facility] Erythrocyte distribution width (RBC) [Ratio] 14.7 % 11.0 - 15.0 % [facility] Hematocrit (Bld) [Volume fraction] 46.0 % 36.0 - 48.0 % [facility] Hemoglobin (Bld) [Mass/Vol] 14.7 g/dL 12.0 - 16.0 g/dL [facility] IMMATURE GRANULOCYTES ABS AUTO 0.01 [facility] Immature granulocytes/100 WBC (Bld) 0.2 % 0.0 - 0.5 % [facility] LYMPHOCYTES ABSOLUTE AUTO 1.4 [facility] Lymphocytes/100 WBC (Bld) 22.4 % 20.5 - 60.0 % [facility] MCH (RBC) [Entitic mass] 30.1 pg 26.7 - 34.0 pg [facility] MCHC (RBC) [Mass/Vol] 32.0 g/dL 29.9 - 35.2 g/dL [facility] MCV (RBC) [Entitic vol] 94.3 fL 81.0 - 99.0 fL [facility] MONOCYTES ABSOLUTE AUTO 0.6 [facility] Monocytes/100 WBC (Bld) 9.6 % 1.7 - 12.0 % [facility] NEUTROPHILS ABSOLUTE AUTO 3.9 [facility] Neutrophils/100 WBC (Bld) 63.9 % 43.0 - 75.0 % [facility] Platelet mean volume (Bld) [Entitic vol] 11.6 fL 9.5 - 13.5 fL [facility] TBH EO # 0.2 [facility] 4[facility]88 [facility] WBC 6.0 [facility] MLR HEMOGLOBIN A1Con 024 Glucose [Mass/Vol] 108 mg/dL [facility] HbA1c (Bld) [Mass fraction] 5.4 % 4.5 - 6.2 % [facility] Comment on above: ADA RECOMMENDED LIMI T 4.0 - 6.0 ADA THERAPEUTIC TARGET < 7.0 ACTION SUGGESTED > 7.0 [facility] Documentationon 12-09-2023 Documentation [id number] Tanika Grimm 1955 F Date Provider Department Center 12/09/2023 FERNANDA MARVIN None Family History Family Status - Relation Status Age at Mother Father Reason for Visit and Comments: Prior auth : Mycophenolate [Other] [facility] Documentationon 11-26-2023 Documentation [id number] Tanika Grimm 1955 F Date Provider Department Center 11/26/2023 FERNANDA MARVIN None Family History Family Status - Relation Status Age at Mother Father Reason for Visit and Comments: Prior auth Tac 0.5mg [Other] [facility] No Panel InformationOrdered By: Lindsay Soria on 08-30-2023 Quick Strep (POC) [facility] COVID/FLU/RSV RT-PCRon 03-27 SARS-CoV-2 (COVID-19) RNA MURALI+probe Ql (Unsp spec) Negative [facility] Other COVID/FLU/RSV RT-PCR Negative [facility] Other Quick Strepon 03-27-2023 S. pyogenes Org specific cx Ql (Throat) Negative [facility] Other Quick Strep [facility] Other BILIRUBIN CONJUGATED (DIRECT )on 08-12-2022 BILI, CONJUGATED 0.1 mg/dL Normal 0.0-0.2 [facility] Comment on above: Performed By: #### D DAVIDSON, MG, PHOS, CMP, LIPID, URIC #### [facility] [address] [address] [address] Sarmad Patino GLYCOHEMOGLOBIN A1Con 2022 ADA RECOMMENDATION SEE BELOW Normal [facility] Comment on above: Result Comment: ADA RECOMMENDED LIMIT 4.0 - 6.0 ADA THERAPEUTIC TARGET < 7.0 ACTION SUGGESTED > 7.0 Performed By: #### D DAVIDSON, MG, PHOS, CMP, LIPID, URIC #### [facility] [address] [place] [address] Dr. Sarmad Patino Glucose [Mass/Vol] 108 mg/dL Normal [facility] Comment on above: Performed By: #### D DAVIDSON, MG, PHOS, CMP, LIPID, URIC #### [facility] [address] [place] [address] Dr. Sarmad Patino HbA1c (Bld) [Mass fraction] 5.4 % Normal 4.5-6.2 [facility] Comment on above: Performed By: #### D DAVIDSON, MG, PHOS, CMP, LIPID, URIC #### [facility] [address] [place] [address] Dr. Sarmad Patino MAGNESIUMon 08-12-2022 Magnesium [Mass/Vol] 1.7 mg/dL Critically low 1.8-2.4 [facility] Comment on above: Performed By: #### D DAVIDSON, MG, PHOS, CMP, LIPID, URIC #### [facility] [address] [place] [address] Dr. Sarmad Patino PHOSPHORUSon 08-12-2022 Phosphate [Mass/Vol] 3.9 mg/dL Normal 2.6-4.7 [facility] Comment on above: Performed By: #### U JUVE, LIPID, MG, CMP, DBIL, PHOS #### [facility] [address] [place] [address] Dr. Sarmad Patino PROF 14(COMP METB)on 023 Albumin [Mass/Vol] 3.9 g/dL Normal 3.4-5.0 [facility] Comment on above: Performed By: #### D DAVIDSON, MG, PHOS, CMP, LIPID, URIC #### [facility] [address] [place] [address] Dr. Sarmad Patino Albumin/Globulin [Mass ratio] 1.2 {ratio} Normal [facility] Comment on above: Performed By: #### D DAVIDSON, MG, PHOS, CMP, LIPID, URIC #### [facility] [address] [place] [address] Dr. Sarmad Patino ALP [Catalytic activity/Vol] 126 U/L Critically high 46-116 [facility] Comment on above: Performed By: #### D DAVIDSON, MG, PHOS, CMP, LIPID, URIC #### [facility] [address] [place] [address] Dr. Sarmad Patino ALT [Catalytic activity/Vol] 18 U/L Normal 14-59 [facility] Comment on above: Performed By: #### D DAVIDSON, MG, PHOS, CMP, LIPID, URIC #### [facility] [address] [place] [address] Dr. Sarmad Patino Anion gap [Moles/Vol] 10.4 mmol/L Normal Th e [facility] Comment on above: Performed By: #### D DAVIDSON, MG, PHOS, CMP, LIPID, URIC #### [facility] [address] [place] [address] Dr. Sarmad Patino AST [Catalytic activity/Vol] 14 U/L Critically low 15-37 [facility] Comment on above: Performed By: #### D DAVIDSON, MG, PHOS, CMP, LIPID, URIC #### [facility] [address] [place] [address] Dr. Sarmad Patino Bilirubin [Mass/Vol] 0.7 mg/dL Normal 0.2-1.0 [facility] Comment on above: Performed By: #### D DAVIDSON, MG, PHOS, CMP, LIPID, URIC #### [facility] [address] [place] [address] Dr. Sarmad Patino Calcium [Mass/Vol] 9.8 mg/dL Normal 8.5-10.1 [facility] Comment on above: Performed By: #### D DAVIDSON, MG, PHOS, CMP, LIPID, URIC #### [facility] [address] [place] [address] Dr. Sarmad Patino Chloride [Moles/Vol] 106 mmol/L Normal 98-107 [facility] Comment on above: Performed By: #### D DAVIDSON, MG, PHOS, CMP, LIPID, URIC #### [facility] [address] [address] [address] Sarmad Patino CO2 [Moles/Vol] 32.1 mmol/L Critically high 21.0-32.0 [facility] Comment on above: Performed By: #### D DAVIDSON, MG, PHOS, CMP, LIPID, URIC #### [facility] [address] [address] [address] Sarmad Patino Creatinine [Mass/Vol] 0.92 mg/dL Normal 0.55-1.02 [facility] Comment on above: Performed By: #### D DAVIDSON, MG, PHOS, CMP, LIPID, URIC #### [facility] [address] [address] [address] Sarmad Patino EGFR-AF ZIMBABWEAN >60 Normal >=60 [facility] Comment on above: Performed By: #### D DAVIDSON, MG, PHOS, CMP, LIPID, URIC #### [facility] [address] [place] [address] Dr. Sarmad Patino EGFR-NON AF ZIMBABWEAN >60 Normal >=60 [facility] Comment on above: Performed By: #### D DAVIDSON, MG, PHOS, CMP, LIPID, URIC #### [facility] [address] [address] [address] Sarmad Patino Globulin (S) [Mass/Vol] 3.3 g/dL Normal [facility] Comment on above: Performed By: #### D DAVIDSON, MG, PHOS, CMP, LIPID, URIC #### [facility] [address] [address] [address] Sarmad Patino Glucose [Mass/Vol] 102 mg/dL Normal 74-106 [facility] Comment on above: Performed By: #### D DAVIDSON, MG, PHOS, CMP, LIPID, URIC #### [facility] [address] [place] [address] Dr. Sarmad Patino Potassium [Moles/Vol] 4.5 mmol/L Normal 3.5-5.1 [facility] Comment on above: Performed By: #### D DAVIDSON, MG, PHOS, CMP, LIPID, URIC #### [facility] [address] [place], [place] [id number] Dr. Sarmad Patino Protein [Mass/Vol] 7.2 g/dL Normal 6.4-8.2 [facility] Comment on above: Performed By: #### D DAVIDSON, MG, PHOS, CMP, LIPID, URIC #### [facility] [address] [place] [address] Dr. Sarmad Patino Sodium [Moles/Vol] 144 mmol/L Normal 136-145 [facility] Comment on above: Performed By: #### D DAVIDSON, MG, PHOS, CMP, LIPID, URIC #### [facility] [address] [place] [address] Dr. Sarmad Patino Urea nitrogen [Mass/Vol] 20.0 mg/dL Critically high 7.0-18.0 [facility] Comment on above: Performed By: #### D DAVIDSON, MG, PHOS, CMP, LIPID, URIC #### [facility] [address] [place] [address] Dr. Sarmad Patino Urea nitrogen/Creatinine [Mass ratio] 21.7 mg/mg Normal [facility] Comment on above: Performed By: #### D DAVIDSON, MG, PHOS, CMP, LIPID, URIC #### [facility] [address] [place] [address] Dr. Sarmad Patino URIC ACID SERUMon 08-12-2022 Urate [Mass/Vol] 5.2 mg/dL Normal 2.6-6.0 [facility] Comment on above: Performed By: #### D DAVIDSON, MG, PHOS, CMP, LIPID, URIC #### [facility] [address] [place] [address] Dr. Sarmad Patino MG MAMM SCREEN 3D DAVIDSON CADon 07-23-2022 MG MAMM SCREEN 3D DAVIDSON CAD Patient: TANIKA GRIMM Exam Date: 07/23/2022 : 1955 Gender:F Ordering : DR RAMON CARROLL M.D. Admission #: [id number] Family : Order #: [id number] CLICK HERE TO VIEW EXAM RADIOLOGY REPORT [...] Treatments None Family Cancers None LOCATION: [facility] BREAST COMPOSITION: Extremely dense, which lowers the [...] Bernard M.D. on 07/23/2022 at 16:59 Normal [facility] FK506 (TACROLIMUS) WHOLE BLO ODon 07-10-2022 Tacrolimus (FK506), Blood 3.8 ng/mL Normal 2.0-20.0 [facility] Comment on above: Result Comment: Trou gh (immediately following transplant) 15.0 . Trough (steady state, 2 weeks or more after transplant): 3.0 - 8.0 . Performed by LC-MS/MS technology. Performed By: #### D DAVIDSON, MG, PHOS, CMP, LIPID, URIC #### [facility] [address] [address] [address] Sarmad Patino BILIRUBIN CONJUGATED (DIRECT )on 07-08-2022 BILI, CONJUGATED 0.1 mg/dL Normal 0.0-0.2 [facility] Comment on above: Performed By: #### U JUVE, LIPID, MG, CMP, DBIL, PHOS #### [facility] [address] [address] [address] Sarmad Patino GLYCOHEMOGLOBIN A1Con 2022 ADA RECOMMENDATION SEE BELOW Normal [facility] Comment on above: Result Comment: ADA RECOMMENDED LIMIT 4.0 - 6.0 ADA THERAPEUTIC TARGET < 7.0 ACTION SUGGESTED > 7.0 Performed By: #### D DAVIDSON, MG, PHOS, CMP, LIPID, URIC #### [facility] [address] [address] [address] Sarmad Patino Glucose [Mass/Vol] 105 mg/dL Normal [facility] Comment on above: Performed By: #### D DAVIDSON, MG, PHOS, CMP, LIPID, URIC #### [facility] [address] [address] [address] Sarmad Patino HbA1c (Bld) [Mass fraction] 5.3 % Normal 4.5-6.2 [facility] Comment on above: Performed By: #### D DAVIDSON, MG, PHOS, CMP, LIPID, URIC #### [facility] [address] [place] [address] Dr. Sarmad Patino MAGNESIUMon 07-08-2022 Magnesium [Mass/Vol] 1.8 mg/dL Normal 1.8-2.4 [facility] Comment on above: Performed By: #### U JUVE, LIPID, MG, CMP, DBIL, PHOS #### [facility] [address] [place] [address] Dr. Sarmad Patino PHOSPHORUSon 07-08-2022 Phosphate [Mass/Vol] 3.8 mg/dL Normal 2.6-4.7 [facility] Comment on above: Performed By: #### U JUVE, LIPID, MG, CMP, DBIL, PHOS #### [facility] [address] [place] [address] Dr. Sarmad Patino PROF 14(COMP METB)on 023 Albumin [Mass/Vol] 3.7 g/dL Normal 3.4-5.0 [facility] Comment on above: Performed By: #### U JUVE, LIPID, MG, CMP, DBIL, PHOS #### [facility] [address] [place] [address] Dr. Sarmad Patino Albumin/Globulin [Mass ratio] 1.1 {ratio} Normal [facility] Comment on above: Performed By: #### U JUVE, LIPID, MG, CMP, DBIL, PHOS #### [facility] [address] [address] [address] Sarmad Patino ALP [Catalytic activity/Vol] 124 U/L Critically high 46-116 [facility] Comment on above: Performed By: #### U JUVE, LIPID, MG, CMP, DBIL, PHOS #### [facility] [address] [place] [address] Dr. Sarmad Patino ALT [Catalytic activity/Vol] 20 U/L Normal 14-59 [facility] Comment on above: Performed By: #### U JUVE, LIPID, MG, CMP, DBIL, PHOS #### [facility] [address] [place] [address] Dr. Sarmad Patino Anion gap [Moles/Vol] 11.5 mmol/L Normal [facility] Comment on above: Performed By: #### U JUVE, LIPID, MG, CMP, DBIL, PHOS #### [facility] [address] [place] [address] Dr. Sarmad Patino AST [Catalytic activity/Vol] 12 U/L Critically low 15-37 [facility] Comment on above: Performed By: #### U JUVE, LIPID, MG, CMP, DBIL, PHOS #### [facility] [address] [place] [address] Dr. Sarmad Patino Bilirubin [Mass/Vol] 0.5 mg/dL Normal 0.2-1.0 [facility] Comment on above: Performed By: #### U JUVE, LIPID, MG, CMP, DBIL, PHOS #### [facility] [address] [place] [address] Dr. Sarmad Patino Calcium [Mass/Vol] 9.6 mg/dL Normal 8.5-10.1 [facility] Comment on above: Performed By: #### U JUVE, LIPID, MG, CMP, DBIL, PHOS #### [facility] [address] [place] [address] Dr. Sarmad Patino Chloride [Moles/Vol] 106 mmol/L Normal 98-107 [facility] Comment on above: Performed By: #### U JUVE, LIPID, MG, CMP, DBIL, PHOS #### [facility] [address] [address] [address] Sarmad Patino CO2 [Moles/Vol] 29.7 mmol/L Normal 21.0-32.0 [facility] Comment on above: Performed By: #### U JUVE, LIPID, MG, CMP, DBIL, PHOS #### [facility] [address] [place] [address] Dr. Sarmad Patino Creatinine [Mass/Vol] 0.77 mg/dL Normal 0.55-1.02 [facility] Comment on above: Performed By: #### U JUVE, LIPID, MG, CMP, DBIL, PHOS #### [facility] [address] [place] [address] Dr. Sarmad Patino EGFR-AF ZIMBABWEAN >60 Normal >=60 [facility] Comment on above: Performed By: #### U JUVE, LIPID, MG, CMP, DBIL, PHOS #### [facility] [address] [place] [address] Dr. Sarmad Patino EGFR-NON AF ZIMBABWEAN >60 Normal >=60 [facility] Comment on above: Performed By: #### U JUVE, LIPID, MG, CMP, DBIL, PHOS #### [facility] [address] [place] [address] Dr. Sarmad Patino Globulin (S) [Mass/Vol] 3.4 g/dL Normal [facility] Comment on above: Performed By: #### U JUVE, LIPID, MG, CMP, DBIL, PHOS #### [facility] [address] [place] [address] Dr. Sarmad Patino Glucose [Mass/Vol] 97 mg/dL Normal 74-106 [facility] Comment on above: Performed By: #### U JUVE, LIPID, MG, CMP, DBIL, PHOS #### [facility] [address] [place] [address] Dr. Sarmad Patino Potassium [Moles/Vol] 4.2 mmol/L Normal 3.5-5.1 [facility] Comment on above: Performed By: #### U JUVE, LIPID, MG, CMP, DBIL, PHOS #### [facility] [address] [address] [address] Sarmad Patino Protein [Mass/Vol] 7.1 g/dL Normal 6.4-8.2 [facility] Comment on above: Performed By: #### U JUVE, LIPID, MG, CMP, DBIL, PHOS #### [facility] [address] [address] [address] Sarmad Patino Sodium [Moles/Vol] 143 mmol/L Normal 136-145 [facility] Comment on above: Performed By: #### U JUVE, LIPID, MG, CMP, DBIL, PHOS #### [facility] [address] [address] [address] Sarmad Patino Urea nitrogen [Mass/Vol] 26.0 mg/dL Critically high 7.0-18.0 [facility] Comment on above: Performed By: #### U JUVE, LIPID, MG, CMP, DBIL, PHOS #### [facility] [address] [place] [address] Dr. Sarmad Patino Urea nitrogen/Creatinine [Mass ratio] 33.8 mg/mg Normal [facility] Comment on above: Performed By: #### U JUVE, LIPID, MG, CMP, DBIL, PHOS #### [facility] [address] [place] [address] Dr. Sarmad Patino URIC ACID SERUMon 07-08-2022 Urate [Mass/Vol] 4.7 mg/dL Normal 2.6-6.0 [facility] Comment on above: Performed By: #### U JUVE, LIPID, MG, CMP, DBIL, PHOS #### [facility] [address] [place] [address] Dr. Sarmad Patino FK506 (TACROLIMUS) WHOLE BLO ODon 06-13-2022 Tacrolimus (FK506), Blood 3.0 ng/mL Normal 2.0-20.0 [facility] Comment on above: Result Comment: Trou gh (immediately following transplant) 15.0 . Trough (steady state, 2 weeks or more after transplant): 3.0 - 8.0 . Performed by LC-MS/MS technology. Performed By: #### D DAVIDSON, MG, PHOS, CMP, LIPID, URIC #### [facility] [address] [place] [address] Dr. Sarmad Patino BK VIRUS PCR QUANTon 023 BKV DNA QUANT PCR PLASMA Negative Normal Negative [facility] Comment on above: Result Comment: No B K DNA detected. . The linear range of the assay is 22 - 100,000,000 IU/mL. Performed By: #### B KVIRUS #### [facility] [address] [place] [address] Dr. Sarmad Patino Log10 BKV DNA Plasma Normal [facility] Comment on above: Performed By: #### B KVIRUS #### [facility] [address] [place] [address] Dr. Sarmad Patino BILIRUBIN CONJUGATED (DIRECT )on 06-10-2022 BILI, CONJUGATED 0.1 mg/dL Normal 0.0-0.2 [facility] Comment on above: Performed By: #### U JUVE, LIPID, MG, CMP, DBIL, PHOS #### [facility] [address] [place] [address] Dr. Sarmad Patino GLYCOHEMOGLOBIN A1Con 2022 ADA RECOMMENDATION SEE BELOW Normal [facility] Comment on above: Result Comment: ADA RECOMMENDED LIMIT 4.0 - 6.0 ADA THERAPEUTIC TARGET < 7.0 ACTION SUGGESTED > 7.0 Performed By: #### D DAVIDSON, MG, PHOS, CMP, LIPID, URIC #### [facility] [address] [place] [address] Dr. Sarmad Patino Glucose [Mass/Vol] 114 mg/dL Normal [facility] Comment on above: Performed By: #### D DAVIDSON, MG, PHOS, CMP, LIPID, URIC #### [facility] [address] [place] [address] Dr. Sarmad Patino HbA1c (Bld) [Mass fraction] 5.6 % Normal 4.5-6.2 [facility] Comment on above: Performed By: #### D DAVIDSON, MG, PHOS, CMP, LIPID, URIC #### [facility] [address] [place] [address] Dr. Sarmad Patino MAGNESIUMon 06-10-2022 Magnesium [Mass/Vol] 1.6 mg/dL Critically low 1.8-2.4 [facility] Comment on above: Performed By: #### U JUVE, LIPID, MG, CMP, DBIL, PHOS #### [facility] [address] [place] [address] Dr. Sarmad Patino PROF 14(COMP METB)on 023 Albumin [Mass/Vol] 3.7 g/dL Normal 3.4-5.0 [facility] Comment on above: Performed By: #### U JUVE, LIPID, MG, CMP, DBIL, PHOS #### [facility] [address] [place] [address] Dr. Sarmad Patino Albumin/Globulin [Mass ratio] 1.1 {ratio} Normal [facility] Comment on above: Performed By: #### U JUVE, LIPID, MG, CMP, DBIL, PHOS #### [facility] [address] [place] [address] Dr. Sarmad Patino ALP [Catalytic activity/Vol] 142 U/L Critically high 46-116 [facility] Comment on above: Performed By: #### U JUVE, LIPID, MG, CMP, DBIL, PHOS #### [facility] [address] [place] [address] Dr. Sarmad Patino ALT [Catalytic activity/Vol] 29 U/L Normal 14-59 [facility] Comment on above: Performed By: #### U JUVE, LIPID, MG, CMP, DBIL, PHOS #### [facility] [address] [place] [address] Dr. Sarmad Patino Anion gap [Moles/Vol] 11.1 mmol/L Normal [facility] Comment on above: Performed By: #### U JUVE, LIPID, MG, CMP, DBIL, PHOS #### [facility] [address] [place] [address] Dr. Sarmad Patino AST [Catalytic activity/Vol] 19 U/L Normal 15-37 [facility] Comment on above: Performed By: #### U JUVE, LIPID, MG, CMP, DBIL, PHOS #### [facility] [address] [address] [address] Sarmad Patino Bilirubin [Mass/Vol] 0.6 mg/dL Normal 0.2-1.0 [facility] Comment on above: Performed By: #### U JUVE, LIPID, MG, CMP, DBIL, PHOS #### [facility] [address] [address] [address] Sarmad Patino Calcium [Mass/Vol] 9.8 mg/dL Normal 8.5-10.1 [facility] Comment on above: Performed By: #### U JUVE, LIPID, MG, CMP, DBIL, PHOS #### [facility] [address] [address] [address] Sarmad Patino Chloride [Moles/Vol] 103 mmol/L Normal 98-107 [facility] Comment on above: Performed By: #### U JUVE, LIPID, MG, CMP, DBIL, PHOS #### [facility] [address] [place] [address] Dr. Sarmad Patino CO2 [Moles/Vol] 30.7 mmol/L Normal 21.0-32.0 [facility] Comment on above: Performed By: #### U JUVE, LIPID, MG, CMP, DBIL, PHOS #### [facility] [address] [place] [address] Dr. Sarmad Patino Creatinine [Mass/Vol] 0.79 mg/dL Normal 0.55-1.02 [facility] Comment on above: Performed By: #### U JUVE, LIPID, MG, CMP, DBIL, PHOS #### [facility] [address] [place] [address] Dr. Sarmad Patino EGFR-AF ZIMBABWEAN >60 Normal >=60 [facility] Comment on above: Performed By: #### U JUVE, LIPID, MG, CMP, DBIL, PHOS #### [facility] [address] [place] [address] Dr. Sarmad Patino EGFR-NON AF ZIMBABWEAN >60 Normal >=60 [facility] Comment on above: Performed By: #### U JUVE, LIPID, MG, CMP, DBIL, PHOS #### [facility] [address] [address] [address] Sarmad Patino Globulin (S) [Mass/Vol] 3.4 g/dL Normal [facility] Comment on above: Performed By: #### U JUVE, LIPID, MG, CMP, DBIL, PHOS #### [facility] [address] [place] [address] Dr. Sarmad Patino Glucose [Mass/Vol] 94 mg/dL Normal 74-106 [facility] Comment on above: Performed By: #### U JUVE, LIPID, MG, CMP, DBIL, PHOS #### [facility] [address] [place] [address] Dr. Sarmad Patino Potassium [Moles/Vol] 3.8 mmol/L Normal 3.5-5.1 [facility] Comment on above: Performed By: #### U JUVE, LIPID, MG, CMP, DBIL, PHOS #### [facility] [address] [place] [address] Dr. Sarmad Patino Protein [Mass/Vol] 7.1 g/dL Normal 6.4-8.2 [facility] Comment on above: Performed By: #### U JUVE, LIPID, MG, CMP, DBIL, PHOS #### [facility] [address] [place] [address] Dr. Sarmad Patino Sodium [Moles/Vol] 141 mmol/L Normal 136-145 [facility] Comment on above: Performed By: #### U JUVE, LIPID, MG, CMP, DBIL, PHOS #### [facility] [address] [place] [address] Dr. Sarmad Patino Urea nitrogen [Mass/Vol] 17.0 mg/dL Normal 7.0-18.0 [facility] Comment on above: Performed By: #### U JUVE, LIPID, MG, CMP, DBIL, PHOS #### [facility] [address] [place] [address] Dr. Sarmad Patino Urea nitrogen/Creatinine [Mass ratio] 21.5 mg/mg Normal [facility] Comment on above: Performed By: #### U JUVE, LIPID, MG, CMP, DBIL, PHOS #### [facility] [address] [address] [address] Sarmad Patino URIC ACID SERUMon 06-10-2022 Urate [Mass/Vol] 5.1 mg/dL Normal 2.6-6.0 [facility] Comment on above: Performed By: #### U JUVE, LIPID, MG, CMP, DBIL, PHOS #### [facility] [address] [address] [address] Sarmad Patino BK VIRUS PCR QUANTon 023 BKV DNA QUANT PCR PLASMA Negative Normal Negative [facility] Comment on above: Result Comment: No B K DNA detected. . The linear range of the assay is 22 - 100,000,000 IU/mL. Performed By: #### U JUVE, LIPID, MG, CMP, DBIL, PHOS #### [facility] [address] [place] [address] Dr. Sarmad Patino Log10 BKV DNA Plasma Normal [facility] Comment on above: Performed By: #### U JUVE, LIPID, MG, CMP, DBIL, PHOS #### [facility] [address] [place] [address] Dr. Sarmad Patino FK506 (TACROLIMUS) WHOLE BLO ODon 05-13-2022 Tacrolimus (FK506), Blood 4.1 ng/mL Normal 2.0-20.0 [facility] Comment on above: Result Comment: Trou gh (immediately following transplant) 15.0 . Trough (steady state, 2 weeks or more after transplant): 3.0 - 8.0 . Performed by LC-MS/MS technology. Performed By: #### U JUVE, LIPID, MG, CMP, DBIL, PHOS #### [facility] [address] [place] [address] Dr. Sarmad Patino BILIRUBIN CONJUGATED (DIRECT )on 05-10-2022 BILI, CONJUGATED 0.1 mg/dL Normal 0.0-0.2 [facility] Comment on above: Performed By: #### D DAVIDSON, MG, PHOS, CMP, LIPID, URIC #### [facility] [address] [place] [address] Dr. Sarmad Patino GLYCOHEMOGLOBIN A1Con 2022 ADA RECOMMENDATION SEE BELOW Normal [facility] Comment on above: Result Comment: ADA RECOMMENDED LIMIT 4.0 - 6.0 ADA THERAPEUTIC TARGET < 7.0 ACTION SUGGESTED > 7.0 Performed By: #### D DAVIDSON, MG, PHOS, CMP, LIPID, URIC #### [facility] [address] [place] [address] Dr. Sarmad Patino Glucose [Mass/Vol] 108 mg/dL Normal [facility] Comment on above: Performed By: #### D DAVIDSON, MG, PHOS, CMP, LIPID, URIC #### [facility] [address] [address] [address] Sarmad Patino HbA1c (Bld) [Mass fraction] 5.4 % Normal 4.5-6.2 [facility] Comment on above: Performed By: #### D DAVIDSON, MG, PHOS, CMP, LIPID, URIC #### [facility] [address] [place] [address] Dr. Sarmad Patino MAGNESIUMon 05-10-2022 Magnesium [Mass/Vol] 1.9 mg/dL Normal 1.8-2.4 [facility] Comment on above: Performed By: #### U JUVE, LIPID, MG, CMP, DBIL, PHOS #### [facility] [address] [place] [address] Dr. Sarmad Patino PROF 14(COMP METB)on 023 Albumin [Mass/Vol] 3.9 g/dL Normal 3.4-5.0 [facility] Comment on above: Performed By: #### D DAVIDSON, MG, PHOS, CMP, LIPID, URIC #### [facility] [address] [place] [address] Dr. Sarmad Patino Albumin/Globulin [Mass ratio] 1.2 {ratio} Normal [facility] Comment on above: Performed By: #### D DAVIDSON, MG, PHOS, CMP, LIPID, URIC #### [facility] [address] [place] [address] Dr. Sarmad Patino ALP [Catalytic activity/Vol] 114 U/L Normal 46-116 [facility] Comment on above: Performed By: #### D DAVIDSON, MG, PHOS, CMP, LIPID, URIC #### [facility] [address] [address] [address] Sarmad Patino ALT [Catalytic activity/Vol] 18 U/L Normal 14-59 [facility] Comment on above: Performed By: #### D DAVIDSON, MG, PHOS, CMP, LIPID, URIC #### [facility] [address] [place] [address] Dr. Sarmad Patino Anion gap [Moles/Vol] 15.9 mmol/L Normal Th e [facility] Comment on above: Performed By: #### D DAVIDSON, MG, PHOS, CMP, LIPID, URIC #### [facility] [address] [place] [address] Dr. Sarmad Patino AST [Catalytic activity/Vol] 17 U/L Normal 15-37 [facility] Comment on above: Performed By: #### D DAVIDSON, MG, PHOS, CMP, LIPID, URIC #### [facility] [address] [place] [address] Dr. Sarmad Patino Bilirubin [Mass/Vol] 0.4 mg/dL Normal 0.2-1.0 [facility] Comment on above: Performed By: #### D DAVIDSON, MG, PHOS, CMP, LIPID, URIC #### [facility] [address] [place] [address] Dr. Sarmad Patino Calcium [Mass/Vol] 9.8 mg/dL Normal 8.5-10.1 [facility] Comment on above: Performed By: #### D DAVIDSON, MG, PHOS, CMP, LIPID, URIC #### [facility] [address] [place] [address] Dr. Sarmad Patino Chloride [Moles/Vol] 103 mmol/L Normal 98-107 [facility] Comment on above: Performed By: #### D DAVIDSON, MG, PHOS, CMP, LIPID, URIC #### [facility] [address] [place] [address] Dr. Sarmad Patino CO2 [Moles/Vol] 29.2 mmol/L Normal 21.0-32.0 [facility] Comment on above: Performed By: #### D DAVIDSON, MG, PHOS, CMP, LIPID, URIC #### [facility] [address] [address] [address] Sarmad Patino Creatinine [Mass/Vol] 0.74 mg/dL Normal 0.55-1.02 [facility] Comment on above: Performed By: #### D DAVIDSON, MG, PHOS, CMP, LIPID, URIC #### [facility] [address] [place] [address] Dr. Sarmad Patino EGFR-AF ZIMBABWEAN >60 Normal >=60 [facility] Comment on above: Performed By: #### D DAVIDSON, MG, PHOS, CMP, LIPID, URIC #### [facility] [address] [place] [address] Dr. Sarmad Patino EGFR-NON AF ZIMBABWEAN >60 Normal >=60 [facility] Comment on above: Performed By: #### D DAVIDSON, MG, PHOS, CMP, LIPID, URIC #### [facility] [address] [place] [address] Dr. Sarmad Patino Globulin (S) [Mass/Vol] 3.2 g/dL Normal [facility] Comment on above: Performed By: #### D DAVIDSON, MG, PHOS, CMP, LIPID, URIC #### [facility] [address] [place] [address] Dr. Sarmad Patino Glucose [Mass/Vol] 94 mg/dL Normal 74-106 [facility] Comment on above: Performed By: #### D DAVIDSON, MG, PHOS, CMP, LIPID, URIC #### [facility] [address] [place] [address] Dr. Sarmad Patino Potassium [Moles/Vol] 4.1 mmol/L Normal 3.5-5.1 [facility] Comment on above: Performed By: #### D DAVIDSON, MG, PHOS, CMP, LIPID, URIC #### [facility] [address] [place] [address] Dr. Sarmad Patino Protein [Mass/Vol] 7.1 g/dL Normal 6.4-8.2 [facility] Comment on above: Performed By: #### D DAVIDSON, MG, PHOS, CMP, LIPID, URIC #### [facility] [address] [address] [address] Sarmad Patino Sodium [Moles/Vol] 144 mmol/L Normal 136-145 [facility] Comment on above: Performed By: #### D DAVIDSON, MG, PHOS, CMP, LIPID, URIC #### [facility] [address] [address] [address] Sarmad Patino Urea nitrogen [Mass/Vol] 18.0 mg/dL Normal 7.0-18.0 [facility] Comment on above: Performed By: #### D DAVIDSON, MG, PHOS, CMP, LIPID, URIC #### [facility] [address] [place] [address] Dr. Sarmad Patino Urea nitrogen/Creatinine [Mass ratio] 24.3 mg/mg Normal [facility] Comment on above: Performed By: #### D DAVIDSON, MG, PHOS, CMP, LIPID, URIC #### [facility] [address] [place] [address] Dr. Sarmad Patino URIC ACID SERUMon 05-10-2022 Urate [Mass/Vol] 5.1 mg/dL Normal 2.6-6.0 [facility] Comment on above: Performed By: #### U JUVE, LIPID, MG, CMP, DBIL, PHOS #### [facility] [address] [place] [address] Dr. Sarmad Patino MYCOPHENOLIC ACIDon 04-17-19 Mycophenolic Acid 1.2 ug/mL Normal 1.0-3.5 [facility] Comment on above: Performed By: #### D DAVIDSON, MG, PHOS, CMP, LIPID, URIC #### [facility] [address] [address] [address] Sarmad Patino Mycophenolic Acid Glucuronide 37 ug/mL Normal 15-125 [facility] Comment on above: Result Comment: [facility] 's Reference Range: 35-100 mcg/mL. Performed By: #### D DAVIDSON, MG, PHOS, CMP, LIPID, URIC #### [facility] [address] [place] [address] Dr. Sarmad Patino FK506 (TACROLIMUS) WHOLE BLO ODon 04-10-2022 Tacrolimus (FK506), Blood 4.2 ng/mL Normal 2.0-20.0 [facility] Comment on above: Result Comment: Trou gh (immediately following transplant) 15.0 . Trough (steady state, 2 weeks or more after transplant): 3.0 - 8.0 . Performed by LC-MS/MS technology. Performed By: #### D DAVIDSON, MG, PHOS, CMP, LIPID, URIC #### [facility] [address] [place] [address] Dr. Sarmad Patino BILIRUBIN CONJUGATED (DIRECT )on 04-08-2022 BILI, CONJUGATED 0.1 mg/dL Normal 0.0-0.2 [facility] Comment on above: Performed By: #### U JUVE, LIPID, MG, CMP, DBIL, PHOS #### [facility] [address] [place] [address] Dr. Sarmad Patino CBC AUTO DIFFon 04-08-2022 BASO # 0.0 103/ul Normal 0.0-0.1 [facility] Comment on above: Performed By: #### D DAVIDSON, MG, PHOS, CMP, LIPID, URIC #### [facility] [address] [place] [address] Dr. Sarmad Patino Basophils/100 WBC (Bld) 0.3 % Normal 0.2-2.0 [facility] Comment on above: Performed By: #### D DAVIDSON, MG, PHOS, CMP, LIPID, URIC #### [facility] [address] [place] [address] Dr. Sarmad Patino EO # 0.1 103/ul Normal 0.0-0.7 [facility] Comment on above: Performed By: #### D DAVIDSON, MG, PHOS, CMP, LIPID, URIC #### [facility] [address] [place] [address] Dr. Sarmad Patino Eosinophils/100 WBC (Bld) 1.4 % Normal 0.9-7.0 [facility] Comment on above: Performed By: #### D DAVIDSON, MG, PHOS, CMP, LIPID, URIC #### [facility] [address] [place] [address] Dr. Sarmad Patino Erythrocyte distribution width (RBC) [Ratio] 15.8 % Critically high 11.0-15.0 [facility] Comment on above: Performed By: #### D DAVIDSON, MG, PHOS, CMP, LIPID, URIC #### [facility] [address] [place] [address] Dr. Sarmad Patino Hematocrit (Bld) [Volume fraction] 43.0 % Normal 36.0-48.0 [facility] Comment on above: Performed By: #### D DAVIDSON, MG, PHOS, CMP, LIPID, URIC #### [facility] [address] [place] [address] Dr. Sarmad Patino Hemoglobin (Bld) [Mass/Vol] 15.0 g/dL Normal 12.0-16.0 [facility] Comment on above: Performed By: #### D DAVIDSON, MG, PHOS, CMP, LIPID, URIC #### [facility] [address] [place] [address] Dr. Sarmad Patino IG # 0.01 10e3/ul Normal 0.00-0.03 [facility] Comment on above: Performed By: #### D DAVIDSON, MG, PHOS, CMP, LIPID, URIC #### [facility] [address] [place] [address] Dr. Sarmad Patino IG % 0.1 % Normal 0.0-0.5 [facility] Comment on above: Performed By: #### D DAVIDSON, MG, PHOS, CMP, LIPID, URIC #### [facility] [address] [place] [address] Dr. Sarmad Patino LYMPH # 1.3 103/ul Normal 1.2-3.8 [facility] Comment on above: Performed By: #### D DAVIDSON, MG, PHOS, CMP, LIPID, URIC #### [facility] [address] [place] [address] Dr. Sarmad Patino Lymphocytes/100 WBC (Bld) 18.3 % Critically low 20.5-60.0 [facility] Comment on above: Performed By: #### D DAVIDSON, MG, PHOS, CMP, LIPID, URIC #### [facility] [address] [place] [address] Dr. Sarmad Patino MANUAL DIFF REQ NO Normal [facility] Comment on above: Performed By: #### D DAVIDSON, MG, PHOS, CMP, LIPID, URIC #### [facility] [address] [place] [address] Dr. Sarmad Patino MCH (RBC) [Entitic mass] 29.7 pg Normal 26.7-34.0 [facility] Comment on above: Performed By: #### D DAVIDSON, MG, PHOS, CMP, LIPID, URIC #### [facility] [address] [place] [address] Dr. Sarmad Patino MCHC (RBC) [Mass/Vol] 34.9 g/dL Normal 29.9-35.2 [facility] Comment on above: Performed By: #### D DAVIDSON, MG, PHOS, CMP, LIPID, URIC #### [facility] [address] [place] [address] Dr. Sarmad Patino MCV (RBC) [Entitic vol] 85.1 fL Normal 81.0-99.0 [facility] Comment on above: Performed By: #### D DAVIDSON, MG, PHOS, CMP, LIPID, URIC #### [facility] [address] [place] [address] Dr. Sarmad Patino MONO # 0.7 103/ul Normal 0.3-0.8 [facility] Comment on above: Performed By: #### D DAVIDSON, MG, PHOS, CMP, LIPID, URIC #### [facility] [address] [place] [address] Dr. Sarmad Patino Monocytes/100 WBC (Bld) 9.8 % Normal 1.7-12.0 [facility] Comment on above: Performed By: #### D DAVIDSON, MG, PHOS, CMP, LIPID, URIC #### [facility] [address] [place] [address] Dr. Sarmad Patino NEUT # 5.1 103/ul Normal 1.4-6.5 [facility] Comment on above: Performed By: #### D DAVIDSON, MG, PHOS, CMP, LIPID, URIC #### [facility] [address] [address] [address] Sarmad Patino Neutrophils/100 WBC (Bld) 70.1 % Normal 43.0-75.0 [facility] Comment on above: Performed By: #### D DAVIDSON, MG, PHOS, CMP, LIPID, URIC #### [facility] [address] [address] [address] Sarmad Patino Platelet mean volume (Bld) [Entitic vol] 10.4 fL Normal 9.5-13.5 [facility] Comment on above: Performed By: #### D DAVIDSON, MG, PHOS, CMP, LIPID, URIC #### [facility] [address] [place] [address] Dr. Sarmad Patino PLT 229 103/ul Normal 150-450 [facility] Comment on above: Performed By: #### D DAVIDSON, MG, PHOS, CMP, LIPID, URIC #### [facility] [address] [place] [address] Dr. Sarmad Patino RBC 5.05 106/ul Normal 4.20-5.40 [facility] Comment on above: Performed By: #### D DAVIDSON, MG, PHOS, CMP, LIPID, URIC #### [facility] [address] [place] [address] Dr. Sarmad Patino WBC 7.2 103/ul Normal 4.0-11.0 [facility] Comment on above: Performed By: #### D DAVIDSON, MG, PHOS, CMP, LIPID, URIC #### [facility] [address] [place] [address] Dr. Sarmad Patino LIPID PROFILEon 04-08-2022 CHOL-HDL RATIO NORM SEE BELOW Normal [facility] Comment on above: Result Comment: 3.3 - 4.4 LOW RISK 4.4 - 7.1 AVERAGE RISK 7.1 - 11.0 MODERATE RISK >11.0 HIGH RISK Performed By: #### U JUVE, LIPID, MG, CMP, DBIL, PHOS #### [facility] [address] [place] [address] Dr. Sarmad Patino Cholesterol [Mass/Vol] 134 mg/dL Normal <=200 [facility] Comment on above: Performed By: #### U JUVE, LIPID, MG, CMP, DBIL, PHOS #### [facility] [address] [address] [address] Sarmad Patino Cholesterol in HDL [Mass/Vol] 55 mg/dL Normal 40-60 [facility] Comment on above: Performed By: #### U JUVE, LIPID, MG, CMP, DBIL, PHOS #### [facility] [address] [address] [address] Sarmad Patino Cholesterol in LDL [Mass/Vol] 56.6 mg/dL Normal [facility] Comment on above: Performed By: #### U JUVE, LIPID, MG, CMP, DBIL, PHOS #### [facility] [address] [address] [address] aSrmad Patino Cholesterol.total/Cho lesterol in HDL [Mass ratio] 2.4 {ratio} Normal [facility] Comment on above: Performed By: #### U JUVE, LIPID, MG, CMP, DBIL, PHOS #### [facility] Laboratory [address] [address] [address] Sarmad Patino HDL NORMAL > or = 60 mg/dl - LO W CARDIOVASCULAR RISK <40 mg/dl - HIGH CARDIOVASCULAR RISK Normal [facility] Comment on above: Performed By: #### U JUVE, LIPID, MG, CMP, DBIL, PHOS #### [facility] [address] [address] [address] Sarmad Patino LDL CALC NORMAL SEE BELOW Normal [facility] Comment on above: Result Comment: <100 mg/dl OPTIMAL 100 - 129 mg/dl NEAR OR ABOVE OPTIMAL 130 - 159 mg/dl BORDERLINE HIGH 160 - 189 mg/dl HIGH >190 mg/dl VERY HIGH Performed By: #### U JUVE, LIPID, MG, CMP, DBIL, PHOS #### [facility] [address] [address] [address] Sarmad Patino Triglyceride [Mass/Vol] 112 mg/dL Normal <=150 [facility] Comment on above: Performed By: #### U JUVE, LIPID, MG, CMP, DBIL, PHOS #### [facility] [address] [place] [address] Dr. Sarmad Patino VLDL CALC 22.4 mg/dL Normal [facility] Comment on above: Performed By: #### U JUVE, LIPID, MG, CMP, DBIL, PHOS #### [facility] [address] [place] [address] Dr. Sarmad Patino MAGNESIUMon 04-08-2022 Magnesium [Mass/Vol] 1.8 mg/dL Normal 1.8-2.4 [facility] Comment on above: Performed By: #### U JUVE, LIPID, MG, CMP, DBIL, PHOS #### [facility] [address] [place] [address] Dr. Sarmad Patino PHOSPHORUSon 04-08-2022 Phosphate [Mass/Vol] 3.9 mg/dL Normal 2.6-4.7 [facility] Comment on above: Performed By: #### U JUVE, LIPID, MG, CMP, DBIL, PHOS #### [facility] [address] [place] [address] Dr. Sarmad Patino PROF 14(COMP METB)on 023 Albumin [Mass/Vol] 4.0 g/dL Normal 3.4-5.0 [facility] Comment on above: Performed By: #### U JUVE, LIPID, MG, CMP, DBIL, PHOS #### [facility] [address] [place] [address] Dr. Sarmad Patino Albumin/Globulin [Mass ratio] 1.3 {ratio} Normal [facility] Comment on above: Performed By: #### U JUVE, LIPID, MG, CMP, DBIL, PHOS #### [facility] [address] [place] [address] Dr. Sarmad Patino ALP [Catalytic activity/Vol] 108 U/L Normal 46-116 [facility] Comment on above: Performed By: #### U JUVE, LIPID, MG, CMP, DBIL, PHOS #### [facility] [address] [place] [address] Dr. Sarmad Patino ALT [Catalytic activity/Vol] 15 U/L Normal 14-59 [facility] Comment on above: Performed By: #### U JUVE, LIPID, MG, CMP, DBIL, PHOS #### [facility] [address] [place] [address] Dr. Sarmad Patino Anion gap [Moles/Vol] 14.3 mmol/L Normal Th e [facility] Comment on above: Performed By: #### U JUVE, LIPID, MG, CMP, DBIL, PHOS #### [facility] [address] [place] [address] Dr. Sarmad Patino AST [Catalytic activity/Vol] 15 U/L Normal 15-37 [facility] Comment on above: Performed By: #### U JUVE, LIPID, MG, CMP, DBIL, PHOS #### [facility] [address] [place] [address] Dr. Sarmad Patino Bilirubin [Mass/Vol] 0.5 mg/dL Normal 0.2-1.0 [facility] Comment on above: Performed By: #### U JUVE, LIPID, MG, CMP, DBIL, PHOS #### [facility] [address] [place] [address] Dr. Sarmad Patino Calcium [Mass/Vol] 9.7 mg/dL Normal 8.5-10.1 [facility] Comment on above: Performed By: #### U JUVE, LIPID, MG, CMP, DBIL, PHOS #### [facility] [address] [place] [address] Dr. Sarmad Patino Chloride [Moles/Vol] 105 mmol/L Normal 98-107 [facility] Comment on above: Performed By: #### U JUVE, LIPID, MG, CMP, DBIL, PHOS #### [facility] [address] [place] [address] Dr. Sarmad Patino CO2 [Moles/Vol] 26.6 mmol/L Normal 21.0-32.0 [facility] Comment on above: Performed By: #### U JUVE, LIPID, MG, CMP, DBIL, PHOS #### [facility] [address] [place] [address] Dr. Sarmad Patino Creatinine [Mass/Vol] 0.80 mg/dL Normal 0.55-1.02 [facility] Comment on above: Performed By: #### U JUVE, LIPID, MG, CMP, DBIL, PHOS #### [facility] [address] [address] [address] Sarmad Patino EGFR-AF ZIMBABWEAN >60 Normal >=60 [facility] Comment on above: Performed By: #### U JUVE, LIPID, MG, CMP, DBIL, PHOS #### [facility] [address] [address] [address] Sarmad Patino EGFR-NON AF ZIMBABWEAN >60 Normal >=60 [facility] Comment on above: Performed By: #### U JUVE, LIPID, MG, CMP, DBIL, PHOS #### [facility] [address] [place] [address] Dr. Sarmad Patino Globulin (S) [Mass/Vol] 3.0 g/dL Normal [facility] Comment on above: Performed By: #### U JUVE, LIPID, MG, CMP, DBIL, PHOS #### [facility] [address] [address] [address] Sarmad Patino Glucose [Mass/Vol] 99 mg/dL Normal 74-106 [facility] Comment on above: Performed By: #### U JUVE, LIPID, MG, CMP, DBIL, PHOS #### [facility] [address] [address] [address] Sarmad Patino Potassium [Moles/Vol] 3.9 mmol/L Normal 3.5-5.1 [facility] Comment on above: Performed By: #### U JUVE, LIPID, MG, CMP, DBIL, PHOS #### [facility] [address] [address] [address] Sarmad Patino Protein [Mass/Vol] 7.0 g/dL Normal 6.4-8.2 [facility] Comment on above: Performed By: #### U JUVE, LIPID, MG, CMP, DBIL, PHOS #### [facility] [address] [address] [address] Sarmad Patino Sodium [Moles/Vol] 142 mmol/L Normal 136-145 [facility] Comment on above: Performed By: #### U JUVE, LIPID, MG, CMP, DBIL, PHOS #### [facility] [address] [place] [address] Dr. Sarmad Patino Urea nitrogen [Mass/Vol] 14.0 mg/dL Normal 7.0-18.0 [facility] Comment on above: Performed By: #### U JUVE, LIPID, MG, CMP, DBIL, PHOS #### [facility] [address] [place] [address] Dr. Sarmad Patino Urea nitrogen/Creatinine [Mass ratio] 17.5 mg/mg Normal [facility] Comment on above: Performed By: #### U JUVE, LIPID, MG, CMP, DBIL, PHOS #### [facility] [address] [place] [address] Dr. Sarmad Patino URIC ACID SERUMon 04-08-2022 Urate [Mass/Vol] 5.2 mg/dL Normal 2.6-6.0 [facility] Comment on above: Performed By: #### U JUVE, LIPID, MG, CMP, DBIL, PHOS #### [facility] [address] [place] [address] Dr. Sarmad Patino BK VIRUS PCR QUANTon 022 BKV DNA QUANT PCR PLASMA Negative Normal Negative [facility] Comment on above: Result Comment: No B K DNA detected. . The linear range of the assay is 22 - 100,000,000 IU/mL. Performed By: #### D DAVIDSON, MG, PHOS, CMP, LIPID, URIC #### [facility] [address] [place] [address] Dr. Sarmad Patino Log10 BKV DNA Plasma Normal [facility] Comment on above: Performed By: #### D DAVIDSON, MG, PHOS, CMP, LIPID, URIC #### [facility] [address] [place] [address] Dr. Sarmad Patino FK506 (TACROLIMUS) WHOLE BLO ODon 03-13-2022 Tacrolimus (FK506), Blood 5.0 ng/mL Normal 2.0-20.0 [facility] Comment on above: Result Comment: Trou gh (immediately following transplant) 15.0 . Trough (steady state, 2 weeks or more after transplant): 3.0 - 8.0 . Performed by LC-MS/MS technology. Performed By: #### D DAVIDSON, MG, PHOS, CMP, LIPID, URIC #### [facility] [address] [address] [address] Sarmad Patino GLYCOHEMOGLOBIN A1Con 2021 ADA RECOMMENDATION SEE BELOW Normal [facility] Comment on above: Result Comment: ADA RECOMMENDED LIMIT 4.0 - 6.0 ADA THERAPEUTIC TARGET < 7.0 ACTION SUGGESTED > 7.0 Performed By: #### D DAVIDSON, MG, PHOS, CMP, LIPID, URIC #### [facility] [address] [place] [address] Dr. Sarmad Patino Glucose [Mass/Vol] 111 mg/dL Normal [facility] Comment on above: Performed By: #### D DAVIDSON, MG, PHOS, CMP, LIPID, URIC #### [facility] [address] [address] [address] Sarmad Patino HbA1c (Bld) [Mass fraction] 5.5 % Normal 4.5-6.2 [facility] Comment on above: Performed By: #### D DAVIDSON, MG, PHOS, CMP, LIPID, URIC #### [facility] [address] [place] [address] Dr. Sarmad Patino LIVER PROFILEon 03-11-2022 Albumin [Mass/Vol] 3.7 g/dL Normal 3.4-5.0 [facility] Comment on above: Performed By: #### D DAVIDSON, MG, PHOS, CMP, LIPID, URIC #### [facility] [address] [address] [address] Sarmad Patino Albumin/Globulin [Mass ratio] 1.1 {ratio} Normal [facility] Comment on above: Performed By: #### D DAVIDSON, MG, PHOS, CMP, LIPID, URIC #### [facility] [address] [address] [address] Sarmad Patino ALP [Catalytic activity/Vol] 124 U/L Critically high 46-116 [facility] Comment on above: Performed By: #### D DAVIDSON, MG, PHOS, CMP, LIPID, URIC #### [facility] [address] [address] [address] Sarmad Patino ALT [Catalytic activity/Vol] 17 U/L Normal 14-59 [facility] Comment on above: Performed By: #### D DAVIDSON, MG, PHOS, CMP, LIPID, URIC #### [facility] [address] [address] [address] Sarmad Patino AST [Catalytic activity/Vol] 16 U/L Normal 15-37 [facility] Comment on above: Performed By: #### D DAVIDSON, MG, PHOS, CMP, LIPID, URIC #### [facility] [address] [place] [address] Dr. Sarmad Patino BILI, CONJUGATED 0.2 mg/dL Normal 0.0-0.2 [facility] Comment on above: Performed By: #### D DAVIDSON, MG, PHOS, CMP, LIPID, URIC #### [facility] [address] [place] [address] Dr. Sarmad Patino Bilirubin [Mass/Vol] 0.6 mg/dL Normal 0.2-1.0 [facility] Comment on above: Performed By: #### D DAVIDSON, MG, PHOS, CMP, LIPID, URIC #### [facility] [address] [place] [address] Dr. Sarmad Patino Globulin (S) [Mass/Vol] 3.4 g/dL Normal [facility] Comment on above: Performed By: #### D DAVIDSON, MG, PHOS, CMP, LIPID, URIC #### [facility] [address] [place] [address] Dr. Sarmad Patino Protein [Mass/Vol] 7.1 g/dL Normal 6.4-8.2 [facility] Comment on above: Performed By: #### D DAVIDSON, MG, PHOS, CMP, LIPID, URIC #### [facility] [address] [place] [address] Dr. Sarmad Patino MAGNESIUMon 03-11-2022 Magnesium [Mass/Vol] 1.6 mg/dL Critically low 1.8-2.4 [facility] Comment on above: Performed By: #### D DAVIDSON, MG, PHOS, CMP, LIPID, URIC #### [facility] [address] [place] [address] Dr. Sarmad Patino PHOSPHORUSon 03-11-2022 Phosphate [Mass/Vol] 3.5 mg/dL Normal 2.6-4.7 [facility] Comment on above: Performed By: #### D DAVIDSON, MG, PHOS, CMP, LIPID, URIC #### [facility] [address] [place] [address] Dr. Sarmad Patino URIC ACID SERUMon 03-11-2022 Urate [Mass/Vol] 5.3 mg/dL Normal 2.6-6.0 [facility] Comment on above: Performed By: #### D DAVIDSON, MG, PHOS, CMP, LIPID, URIC #### [facility] [address] [place] [address] Dr. Sarmad Patino MYCOPHENOLIC ACIDon 02-19-20 22 Mycophenolic Acid 1.5 ug/mL Normal 1.0-3.5 [facility] Comment on above: Performed By: #### D DAVIDSON, MG, PHOS, CMP, LIPID, URIC #### [facility] [address] [place] [address] Dr. Sarmad Patino Mycophenolic Acid Glucuronide 32 ug/mL Normal 15-125 [facility] Comment on above: Result Comment: [facility] 's Reference Range: 35-100 mcg/mL. Performed By: #### D DAVIDSON, MG, PHOS, CMP, LIPID, URIC #### [facility] [address] [place] [address] Dr. Sarmad Patino BK VIRUS PCR QUANTon 022 BKV DNA QUANT PCR PLASMA Negative Normal Negative [facility] Comment on above: Result Comment: No B K DNA detected. . The linear range of the assay is 22 - 100,000,000 IU/mL. Performed By: #### D DAVIDSON, MG, PHOS, CMP, LIPID, URIC #### [facility] [address] [place], [place] [id number] Dr. Sarmad Patino Log10 BKV DNA Plasma Normal [facility] Comment on above: Performed By: #### D DAVIDSON, MG, PHOS, CMP, LIPID, URIC #### [facility] [address] [place] [address] Dr. Sarmad Patino FK506 (TACROLIMUS) WHOLE BLO ODon 02-11-2022 Tacrolimus (FK506), Blood 4.4 ng/mL Normal 2.0-20.0 [facility] Comment on above: Result Comment: Trou gh (immediately following transplant) 15.0 . Trough (steady state, 2 weeks or more after transplant): 3.0 - 8.0 . Performed by LC-MS/MS technology. Performed By: #### U JUVE, LIPID, MG, CMP, DBIL, PHOS #### [facility] [address] [place] [address] Dr. Sarmad Patino BILIRUBIN CONJUGATED (DIRECT )on 02-08-2022 BILI, CONJUGATED 0.1 mg/dL Normal 0.0-0.2 [facility] Comment on above: Performed By: #### D DAVIDSON, MG, PHOS, CMP, LIPID, URIC #### [facility] [address] [place] [address] Dr. Sarmad Patino CBC AUTO DIFFon 02-08-2022 BASO # 0.0 103/ul Normal 0.0-0.1 [facility] Comment on above: Performed By: #### D DAVIDSON, MG, PHOS, CMP, LIPID, URIC #### [facility] [address] [place] [address] Dr. Sarmad Patino Basophils/100 WBC (Bld) 0.3 % Normal 0.2-2.0 [facility] Comment on above: Performed By: #### D DAVIDSON, MG, PHOS, CMP, LIPID, URIC #### [facility] [address] [place] [address] Dr. Sarmad Patino EO # 0.1 103/ul Normal 0.0-0.7 [facility] Comment on above: Performed By: #### D DAVIDSON, MG, PHOS, CMP, LIPID, URIC #### [facility] [address] [address] [address] Sarmad Patino Eosinophils/100 WBC (Bld) 1.0 % Normal 0.9-7.0 [facility] Comment on above: Performed By: #### D DAVIDSON, MG, PHOS, CMP, LIPID, URIC #### [facility] [address] [place] [address] Dr. Sarmad Patino Erythrocyte distribution width (RBC) [Ratio] 15.9 % Critically high 11.0-15.0 [facility] Comment on above: Performed By: #### D DAVIDSON, MG, PHOS, CMP, LIPID, URIC #### [facility] [address] [place] [address] Dr. Sarmad Patino Hematocrit (Bld) [Volume fraction] 42.2 % Normal 36.0-48.0 [facility] Comment on above: Performed By: #### D DAVIDSON, MG, PHOS, CMP, LIPID, URIC #### [facility] [address] [place] [address] Dr. Sarmad Patino Hemoglobin (Bld) [Mass/Vol] 13.8 g/dL Normal 12.0-16.0 [facility] Comment on above: Performed By: #### D DAVIDSON, MG, PHOS, CMP, LIPID, URIC #### [facility] [address] [place] [address] Dr. Sarmad Patino IG # 0.10 10e3/ul Critically high 0.00-0.03 [facility] Comment on above: Performed By: #### D DAVIDSON, MG, PHOS, CMP, LIPID, URIC #### [facility] [address] [place] [address] Dr. Sarmad Patino IG % 1.1 % Critically high 0.0-0.5 [facility] Comment on above: Performed By: #### D DAVIDSON, MG, PHOS, CMP, LIPID, URIC #### [facility] [address] [place] [address] Dr. Sarmad Patino LYMPH # 1.2 103/ul Normal 1.2-3.8 [facility] Comment on above: Performed By: #### D DAVIDSON, MG, PHOS, CMP, LIPID, URIC #### [facility] [address] [place] [address] Dr. Sarmad Patino Lymphocytes/100 WBC (Bld) 12.6 % Critically low 20.5-60.0 [facility] Comment on above: Performed By: #### D DAVIDSON, MG, PHOS, CMP, LIPID, URIC #### [facility] [address] [place] [address] Dr. Sarmad Patino MANUAL DIFF REQ NO Normal [facility] Comment on above: Performed By: #### D DAVIDSON, MG, PHOS, CMP, LIPID, URIC #### [facility] [address] [place] [address] Dr. Sarmad Patino MCH (RBC) [Entitic mass] 28.3 pg Normal 26.7-34.0 [facility] Comment on above: Performed By: #### D DAVIDSON, MG, PHOS, CMP, LIPID, URIC #### [facility] [address] [place] [address] Dr. Sarmad Patino MCHC (RBC) [Mass/Vol] 32.7 g/dL Normal 29.9-35.2 [facility] Comment on above: Performed By: #### D DAVIDSON, MG, PHOS, CMP, LIPID, URIC #### [facility] [address] [place] [address] Dr. Sarmad Patino MCV (RBC) [Entitic vol] 86.7 fL Normal 81.0-99.0 [facility] Comment on above: Performed By: #### D DAVIDSON, MG, PHOS, CMP, LIPID, URIC #### [facility] [address] [place] [address] Dr. Sarmad Patino MONO # 1.0 103/ul Critically high 0.3-0.8 [facility] Comment on above: Performed By: #### D DAVIDSON, MG, PHOS, CMP, LIPID, URIC #### [facility] [address] [place] [address] Dr. Sarmad Patino Monocytes/100 WBC (Bld) 10.7 % Normal 1.7-12.0 [facility] Comment on above: Performed By: #### D DAVIDSON, MG, PHOS, CMP, LIPID, URIC #### [facility] [address] [address] [address] Sarmad Patino NEUT # 6.9 103/ul Critically high 1.4-6.5 [facility] Comment on above: Performed By: #### D DAVIDSON, MG, PHOS, CMP, LIPID, URIC #### [facility] [address] [address] [address] Sarmad Patino Neutrophils/100 WBC (Bld) 74.3 % Normal 43.0-75.0 [facility] Comment on above: Performed By: #### D DAVIDSON, MG, PHOS, CMP, LIPID, URIC #### [facility] [address] [address] [address] Sarmad Patino Platelet mean volume (Bld) [Entitic vol] 11.1 fL Normal 9.5-13.5 [facility] Comment on above: Performed By: #### D DAVIDSON, MG, PHOS, CMP, LIPID, URIC #### [facility] [address] [address] [address] Sarmad Patino PLT 307 103/ul Normal 150-450 [facility] Comment on above: Performed By: #### D DAVIDSON, MG, PHOS, CMP, LIPID, URIC #### [facility] [address] [address] [address] Sarmad Patino RBC 4.87 106/ul Normal 4.20-5.40 [facility] Comment on above: Performed By: #### D DAVIDSON, MG, PHOS, CMP, LIPID, URIC #### [facility] [address] [address] [address] Sarmad Patino WBC 9.3 103/ul Normal 4.0-11.0 [facility] Comment on above: Performed By: #### D DAVIDSON, MG, PHOS, CMP, LIPID, URIC #### [facility] [address] [place] [address] Dr. Sarmad Patino GLYCOHEMOGLOBIN A1Con 2021 ADA RECOMMENDATION SEE BELOW Normal [facility] Comment on above: Result Comment: ADA RECOMMENDED LIMIT 4.0 - 6.0 ADA THERAPEUTIC TARGET < 7.0 ACTION SUGGESTED > 7.0 Performed By: #### D DAVIDSON, MG, PHOS, CMP, LIPID, URIC #### [facility] [address] [address] [address] Sarmad Patino Glucose [Mass/Vol] 134 mg/dL Normal [facility] Comment on above: Performed By: #### D DAVIDSON, MG, PHOS, CMP, LIPID, URIC #### [facility] [address] [address] [address] Sarmad Patino HbA1c (Bld) [Mass fraction] 6.3 % Critically high 4.5-6.2 [facility] Comment on above: Performed By: #### D DAVIDSON, MG, PHOS, CMP, LIPID, URIC #### [facility] [address] [place] [address] Dr. Sarmad Patino LIPID PROFILEon 02-08-2022 CHOL-HDL RATIO NORM SEE BELOW Normal [facility] Comment on above: Result Comment: 3.3 - 4.4 LOW RISK 4.4 - 7.1 AVERAGE RISK 7.1 - 11.0 MODERATE RISK >11.0 HIGH RISK Performed By: #### D DAVIDSON, MG, PHOS, CMP, LIPID, URIC #### [facility] [address] [place] [address] Dr. Sarmad Patino Cholesterol [Mass/Vol] 180 mg/dL Normal <=200 [facility] Comment on above: Performed By: #### D DAVIDSON, MG, PHOS, CMP, LIPID, URIC #### [facility] [address] [address] [address] Sarmad Patino Cholesterol in HDL [Mass/Vol] 58 mg/dL Normal 40-60 [facility] Comment on above: Performed By: #### D DAVIDSON, MG, PHOS, CMP, LIPID, URIC #### [facility] [address] [place] [address] Dr. Sarmad Patino Cholesterol in LDL [Mass/Vol] 86.6 mg/dL Normal [facility] Comment on above: Performed By: #### D DAVIDSON, MG, PHOS, CMP, LIPID, URIC #### [facility] [address] [address] [address] Sarmad Patino Cholesterol.total/Cho lesterol in HDL [Mass ratio] 3.1 {ratio} Normal [facility] Comment on above: Performed By: #### D DAVIDSON, MG, PHOS, CMP, LIPID, URIC #### [facility] [address] [address] [address] Sarmad Patino HDL NORMAL > or = 60 mg/dl - LO W CARDIOVASCULAR RISK <40 mg/dl - HIGH CARDIOVASCULAR RISK Normal [facility] [facility] Comment on above: Performed By: #### D DAVIDSON, MG, PHOS, CMP, LIPID, URIC #### [facility] [address] [address] [address] Sarmad Patino LDL CALC NORMAL SEE BELOW Normal [facility] Comment on above: Result Comment: <100 mg/dl OPTIMAL 100 - 129 mg/dl NEAR OR ABOVE OPTIMAL 130 - 159 mg/dl BORDERLINE HIGH 160 - 189 mg/dl HIGH >190 mg/dl VERY HIGH Performed By: #### D DAVIDSON, MG, PHOS, CMP, LIPID, URIC #### [facility] [address] [address] [address] Sarmad Patino Triglyceride [Mass/Vol] 177 mg/dL Critically high <=150 [facility] Comment on above: Performed By: #### D DAVIDSON, MG, PHOS, CMP, LIPID, URIC #### [facility] [address] [address] [address] Sarmad Patino VLDL CALC 35.4 mg/dL Normal [facility] Comment on above: Performed By: #### D DAVIDSON, MG, PHOS, CMP, LIPID, URIC #### [facility] [address] [address] [address] Sarmad Patino MAGNESIUMon 02-08-2022 Magnesium [Mass/Vol] 1.8 mg/dL Normal 1.8-2.4 [facility] Comment on above: Performed By: #### D DAVIDSON, MG, PHOS, CMP, LIPID, URIC #### [facility] [address] [address] [address] Sarmad Patino PHOSPHORUSon 02-08-2022 Phosphate [Mass/Vol] 3.3 mg/dL Normal 2.6-4.7 [facility] Comment on above: Performed By: #### D DAVIDSON, MG, PHOS, CMP, LIPID, URIC #### [facility] [address] [place] [address] Dr. Sarmad Patino PROF 14(COMP METB)on 022 Albumin [Mass/Vol] 3.8 g/dL Normal 3.4-5.0 [facility] Comment on above: Performed By: #### D DAVIDSON, MG, PHOS, CMP, LIPID, URIC #### [facility] [address] [place] [address] Dr. Sarmad Patino Albumin/Globulin [Mass ratio] 1.3 {ratio} Normal [facility] Comment on above: Performed By: #### D DAVIDSON, MG, PHOS, CMP, LIPID, URIC #### [facility] [address] [place] [address] Dr. Sarmad Patino ALP [Catalytic activity/Vol] 144 U/L Critically high 46-116 [facility] Comment on above: Performed By: #### D DAVIDSON, MG, PHOS, CMP, LIPID, URIC #### [facility] [address] [place] [address] Dr. Sarmad Patino ALT [Catalytic activity/Vol] 24 U/L Normal 14-59 [facility] Comment on above: Performed By: #### D DAVIDSON, MG, PHOS, CMP, LIPID, URIC #### [facility] [address] [place] [address] Dr. Sarmad Patino Anion gap [Moles/Vol] 13.7 mmol/L Normal [facility] Comment on above: Performed By: #### D DAVIDSON, MG, PHOS, CMP, LIPID, URIC #### [facility] [address] [place] [address] Dr. Sarmad Patino AST [Catalytic activity/Vol] 19 U/L Normal 15-37 [facility] Comment on above: Performed By: #### D DAVIDSON, MG, PHOS, CMP, LIPID, URIC #### [facility] [address] [place] [address] Dr. Sarmad Patino Bilirubin [Mass/Vol] 0.5 mg/dL Normal 0.2-1.0 [facility] Comment on above: Performed By: #### D DAVIDSON, MG, PHOS, CMP, LIPID, URIC #### [facility] [address] [place] [address] Dr. Sarmad Patino Calcium [Mass/Vol] 9.6 mg/dL Normal 8.5-10.1 [facility] Comment on above: Performed By: #### D DAVIDSON, MG, PHOS, CMP, LIPID, URIC #### [facility] [address] [place] [address] Dr. Sarmad Patino Chloride [Moles/Vol] 103 mmol/L Normal 98-107 [facility] Comment on above: Performed By: #### D DAVIDSON, MG, PHOS, CMP, LIPID, URIC #### [facility] [address] [place] [address] Dr. Sarmad Patino CO2 [Moles/Vol] 26.6 mmol/L Normal 21.0-32.0 [facility] Comment on above: Performed By: #### D DAVIDSON, MG, PHOS, CMP, LIPID, URIC #### [facility] [address] [place] [address] Dr. Sarmad Patino Creatinine [Mass/Vol] 0.75 mg/dL Normal 0.55-1.02 [facility] Comment on above: Performed By: #### D DAVIDSON, MG, PHOS, CMP, LIPID, URIC #### [facility] [address] [place] [address] Dr. Sarmad Patino EGFR-AF ZIMBABWEAN >60 Normal >=60 [facility] Comment on above: Performed By: #### D DAVIDSON, MG, PHOS, CMP, LIPID, URIC #### [facility] [address] [place] [address] Dr. Sarmad Patino EGFR-NON AF ZIMBABWEAN >60 Normal >=60 [facility] Comment on above: Performed By: #### D DAVIDSON, MG, PHOS, CMP, LIPID, URIC #### [facility] [address] [place] [address] Dr. Sarmad Patino Globulin (S) [Mass/Vol] 3.0 g/dL Normal [facility] Comment on above: Performed By: #### D DAVIDSON, MG, PHOS, CMP, LIPID, URIC #### [facility] [address] [address] [address] Sarmad Patino Glucose [Mass/Vol] 99 mg/dL Normal 74-106 [facility] Comment on above: Performed By: #### D DAVIDSON, MG, PHOS, CMP, LIPID, URIC #### [facility] [address] [place] [address] Dr. Sarmad Patino Potassium [Moles/Vol] 4.3 mmol/L Normal 3.5-5.1 [facility] Comment on above: Performed By: #### D DAVIDSON, MG, PHOS, CMP, LIPID, URIC #### [facility] [address] [place] [address] Dr. Sarmad Patino Protein [Mass/Vol] 6.8 g/dL Normal 6.4-8.2 [facility] Comment on above: Performed By: #### D DAVIDSON, MG, PHOS, CMP, LIPID, URIC #### [facility] [address] [address] [address] Sarmad Patino Sodium [Moles/Vol] 139 mmol/L Normal 136-145 [facility] Comment on above: Performed By: #### D DAVIDSON, MG, PHOS, CMP, LIPID, URIC #### [facility] [address] [place] [address] Dr. Sarmad Patino Urea nitrogen [Mass/Vol] 16.0 mg/dL Normal 7.0-18.0 [facility] Comment on above: Performed By: #### D DAVIDSON, MG, PHOS, CMP, LIPID, URIC #### [facility] [address] [place] [address] Dr. Sarmad Patino Urea nitrogen/Creatinine [Mass ratio] 21.3 mg/mg Normal [facility] Comment on above: Performed By: #### D DAVIDSON, MG, PHOS, CMP, LIPID, URIC #### [facility] [address] [place] [address] Dr. Sarmad Patino URIC ACID SERUMon 02-08-2022 Urate [Mass/Vol] 5.4 mg/dL Normal 2.6-6.0 [facility] Comment on above: Performed By: #### D DAVIDSON, MG, PHOS, CMP, LIPID, URIC #### [facility] [address] [place] [address] Dr. Sarmad Patino BK VIRUS PCR QUANTon 022 BKV DNA QUANT PCR PLASMA 27 IU/mL Normal Negative [facility] Comment on above: Result Comment: The linear range of the assay is 22 - 100,000,000 IU/mL. Performed By: #### D DAVIDSON, MG, PHOS, CMP, LIPID, URIC #### [facility] [address] [place] [address] Dr. Sarmad Patino Log10 BKV DNA Plasma 1.431 log10 IU/mL Normal [facility] Comment on above: Performed By: #### D DAVIDSON, MG, PHOS, CMP, LIPID, URIC #### [facility] [address] [place] [address] Dr. Sarmad Patino FK506 (TACROLIMUS) WHOLE BLO ODon 01-30-2022 Tacrolimus (FK506), Blood 6.5 ng/mL Normal 2.0-20.0 [facility] Comment on above: Result Comment: Trou gh (immediately following transplant) 15.0 . Trough (steady state, 2 weeks or more after transplant): 3.0 - 8.0 . Performed by LC-MS/MS technology. Performed By: #### D DAVIDSON, MG, PHOS, CMP, LIPID, URIC #### [facility] [address] [place] [address] Dr. Sarmad Patino RAPAMUNE(SIROLIMUS)on 2021 Rapamune(Sirolimus), whole blood 9.9 ng/mL Normal 3.0-20.0 [facility] Comment on above: Result Comment: Perf ormed by LC/MS-MS technology . This test was developed and its performance characteristics determined by [facility]. It has not been cleared or approved by the Food and Drug Administration. Performed By: #### D DAVIDSON, MG, PHOS, CMP, LIPID, URIC #### [facility] [address] [address] [address] Sarmad Patino BILIRUBIN CONJUGATED (DIRECT )on 01-28-2022 BILI, CONJUGATED 0.1 mg/dL Normal 0.0-0.2 [facility] Comment on above: Performed By: #### D DAVIDSON, MG, PHOS, CMP, LIPID, URIC #### [facility] [address] [place] [address] Dr. Sarmad Patino CBC AUTO DIFFon 01-28-2022 BASO # 0.0 103/ul Normal 0.0-0.1 [facility] Comment on above: Performed By: #### D DAVIDSON, MG, PHOS, CMP, LIPID, URIC #### [facility] [address] [place] [address] Dr. Sarmad Patino Basophils/100 WBC (Bld) 0.3 % Normal 0.2-2.0 [facility] Comment on above: Performed By: #### D DAVIDSON, MG, PHOS, CMP, LIPID, URIC #### [facility] [address] [place] [address] Dr. Sarmad Patino EO # 0.2 103/ul Normal 0.0-0.7 [facility] Comment on above: Performed By: #### D DAVIDSON, MG, PHOS, CMP, LIPID, URIC #### [facility] [address] [place] [address] Dr. Sarmad Patino Eosinophils/100 WBC (Bld) 3.1 % Normal 0.9-7.0 [facility] Comment on above: Performed By: #### D DAVIDSON, MG, PHOS, CMP, LIPID, URIC #### [facility] [address] [place] [address] Dr. Sarmad Patino Erythrocyte distribution width (RBC) [Ratio] 15.4 % Critically high 11.0-15.0 [facility] Comment on above: Performed By: #### D DAVIDSON, MG, PHOS, CMP, LIPID, URIC #### [facility] [address] [place] [address] Dr. Sarmad Patino Hematocrit (Bld) [Volume fraction] 42.6 % Normal 36.0-48.0 [facility] Comment on above: Performed By: #### D DAVIDSON, MG, PHOS, CMP, LIPID, URIC #### [facility] [address] [address] [address] Sarmad Patino Hemoglobin (Bld) [Mass/Vol] 14.0 g/dL Normal 12.0-16.0 [facility] Comment on above: Performed By: #### D DAVIDSON, MG, PHOS, CMP, LIPID, URIC #### [facility] [address] [address] [address] Sarmad Patino IG # 0.05 10e3/ul Critically high 0.00-0.03 [facility] Comment on above: Performed By: #### D DAVIDSON, MG, PHOS, CMP, LIPID, URIC #### [facility] [address] [address] [address] Sarmad Patino IG % 0.7 % Critically high 0.0-0.5 [facility] Comment on above: Performed By: #### D DAVIDSON, MG, PHOS, CMP, LIPID, URIC #### [facility] [address] [address] [address] Sarmad Patino LYMPH # 1.1 103/ul Critically low 1.2-3.8 [facility] Comment on above: Performed By: #### D DAVIDSON, MG, PHOS, CMP, LIPID, URIC #### [facility] [address] [place] [address] Dr. Sarmad Patino Lymphocytes/100 WBC (Bld) 15.8 % Critically low 20.5-60.0 [facility] Comment on above: Performed By: #### D DAVIDSON, MG, PHOS, CMP, LIPID, URIC #### [facility] [address] [address] [address] Sarmad Patino MANUAL DIFF REQ NO Normal [facility] Comment on above: Performed By: #### D DAVIDSON, MG, PHOS, CMP, LIPID, URIC #### [facility] [address] [address] [address] Sarmad Patino MCH (RBC) [Entitic mass] 28.3 pg Normal 26.7-34.0 [facility] Comment on above: Performed By: #### D DAVIDSON, MG, PHOS, CMP, LIPID, URIC #### [facility] [address] [place] [address] Dr. Sarmad Patino MCHC (RBC) [Mass/Vol] 32.9 g/dL Normal 29.9-35.2 [facility] Comment on above: Performed By: #### D DAVIDSON, MG, PHOS, CMP, LIPID, URIC #### [facility] [address] [place] [address] Dr. Sarmad Patino MCV (RBC) [Entitic vol] 86.2 fL Normal 81.0-99.0 [facility] Comment on above: Performed By: #### D DAVIDSON, MG, PHOS, CMP, LIPID, URIC #### [facility] [address] [place] [address] Dr. Sarmad Patino MONO # 0.8 103/ul Normal 0.3-0.8 [facility] Comment on above: Performed By: #### D DAVIDSON, MG, PHOS, CMP, LIPID, URIC #### [facility] [address] [place] [address] Dr. Sarmad Patino Monocytes/100 WBC (Bld) 11.0 % Normal 1.7-12.0 [facility] Comment on above: Performed By: #### D DAVIDSON, MG, PHOS, CMP, LIPID, URIC #### [facility] [address] [place] [address] Dr. Sarmad Patino NEUT # 4.8 103/ul Normal 1.4-6.5 [facility] Comment on above: Performed By: #### D DAVIDSON, MG, PHOS, CMP, LIPID, URIC #### [facility] [address] [place] [address] Dr. Sarmad Patino Neutrophils/100 WBC (Bld) 69.1 % Normal 43.0-75.0 [facility] Comment on above: Performed By: #### D DAVIDSON, MG, PHOS, CMP, LIPID, URIC #### [facility] [address] [place] [address] Dr. Sarmad Patino Platelet mean volume (Bld) [Entitic vol] 10.8 fL Normal 9.5-13.5 [facility] Comment on above: Performed By: #### D DAVIDSON, MG, PHOS, CMP, LIPID, URIC #### [facility] [address] [address] [address] Sarmad Patino PLT 208 103/ul Normal 150-450 [facility] Comment on above: Performed By: #### D DAVIDSON, MG, PHOS, CMP, LIPID, URIC #### [facility] [address] [address] [address] Sarmad Patino RBC 4.94 106/ul Normal 4.20-5.40 [facility] Comment on above: Performed By: #### D DAVIDSON, MG, PHOS, CMP, LIPID, URIC #### [facility] [address] [place] [address] Dr. Sarmad Patino WBC 7.0 103/ul Normal 4.0-11.0 [facility] Comment on above: Performed By: #### D DAVIDSON, MG, PHOS, CMP, LIPID, URIC #### [facility] [address] [place] [address] Dr. Sarmad Patino GLYCOHEMOGLOBIN A1Con 2021 ADA RECOMMENDATION SEE BELOW Normal [facility] Comment on above: Result Comment: ADA RECOMMENDED LIMIT 4.0 - 6.0 ADA THERAPEUTIC TARGET < 7.0 ACTION SUGGESTED > 7.0 Performed By: #### D DAVIDSON, MG, PHOS, CMP, LIPID, URIC #### [facility] [address] [address] [address] Sarmad Patino Glucose [Mass/Vol] 137 mg/dL Normal [facility] Comment on above: Performed By: #### D DAVIDSON, MG, PHOS, CMP, LIPID, URIC #### [facility] [address] [place] [address] Dr. Sarmad Patino HbA1c (Bld) [Mass fraction] 6.4 % Critically high 4.5-6.2 [facility] Comment on above: Performed By: #### D DAVIDSON, MG, PHOS, CMP, LIPID, URIC #### [facility] [address] [address] [address] Sarmad Patino LIPID PROFILEon 01-28-2022 CHOL-HDL RATIO NORM SEE BELOW Normal [facility] Comment on above: Result Comment: 3.3 - 4.4 LOW RISK 4.4 - 7.1 AVERAGE RISK 7.1 - 11.0 MODERATE RISK >11.0 HIGH RISK Performed By: #### D DAVIDSON, MG, PHOS, CMP, LIPID, URIC #### [facility] [address] [address] [address] Sarmad Patino Cholesterol [Mass/Vol] 209 mg/dL Critically high <=200 [facility] Comment on above: Performed By: #### D DAVIDSON, MG, PHOS, CMP, LIPID, URIC #### [facility] [address] [address] [address] Sarmad Patino Cholesterol in HDL [Mass/Vol] 59 mg/dL Normal 40-60 [facility] Comment on above: Performed By: #### D DAVIDSON, MG, PHOS, CMP, LIPID, URIC #### [facility] [address] [address] [address] Sarmad Patino Cholesterol in LDL [Mass/Vol] 100.4 mg/dL Normal [facility] Comment on above: Performed By: #### D DAVIDSON, MG, PHOS, CMP, LIPID, URIC #### [facility] [address] [address] [address] Sarmad Patino Cholesterol.total/Cho lesterol in HDL [Mass ratio] 3.5 {ratio} Normal [facility] Comment on above: Performed By: #### D DAVIDSON, MG, PHOS, CMP, LIPID, URIC #### [facility] [address] [address] [address] Sarmad Patino HDL NORMAL > or = 60 mg/dl - LO W CARDIOVASCULAR RISK <40 mg/dl - HIGH CARDIOVASCULAR RISK Normal [facility] Comment on above: Performed By: #### D DAVIDSON, MG, PHOS, CMP, LIPID, URIC #### [facility] [address] [address] [address] Sarmad Patino LDL CALC NORMAL SEE BELOW Normal [facility] Comment on above: Result Comment: <100 mg/dl OPTIMAL 100 - 129 mg/dl NEAR OR ABOVE OPTIMAL 130 - 159 mg/dl BORDERLINE HIGH 160 - 189 mg/dl HIGH >190 mg/dl VERY HIGH Performed By: #### D DAVIDSON, MG, PHOS, CMP, LIPID, URIC #### [facility] [address] [place] [address] Dr. Sarmad Patino Triglyceride [Mass/Vol] 248 mg/dL Critically high <=150 [facility] Comment on above: Performed By: #### D DAVIDSON, MG, PHOS, CMP, LIPID, URIC #### [facility] [address] [address] [address] Sarmad Patino VLDL CALC 49.6 mg/dL Normal [facility] Comment on above: Performed By: #### D DAVIDSON, MG, PHOS, CMP, LIPID, URIC #### [facility] [address] [place] [address] Dr. Sarmad Patino MAGNESIUMon 01-28-2022 Magnesium [Mass/Vol] 1.6 mg/dL Critically low 1.8-2.4 [facility] Comment on above: Performed By: #### D DAVIDSON, MG, PHOS, CMP, LIPID, URIC #### [facility] [address] [place] [address] Dr. Sarmad Patino PHOSPHORUSon 01-28-2022 Phosphate [Mass/Vol] 2.7 mg/dL Normal 2.6-4.7 [facility] Comment on above: Performed By: #### D DAVIDSON, MG, PHOS, CMP, LIPID, URIC #### [facility] [address] [place] [address] Dr. Sarmad Patino PROF 14(COMP METB)on 022 Albumin [Mass/Vol] 3.3 g/dL Critically low 3.4-5.0 [facility] Comment on above: Performed By: #### D DAVIDSON, MG, PHOS, CMP, LIPID, URIC #### [facility] [address] [place] [address] Dr. Sarmad Patino Albumin/Globulin [Mass ratio] 0.9 {ratio} Normal [facility] Comment on above: Performed By: #### D DAVIDSON, MG, PHOS, CMP, LIPID, URIC #### [facility] [address] [address] [address] Sarmad Patino ALP [Catalytic activity/Vol] 124 U/L Critically high 46-116 [facility] Comment on above: Performed By: #### D DAVIDSON, MG, PHOS, CMP, LIPID, URIC #### [facility] [address] [address] [address] Sarmad Patino ALT [Catalytic activity/Vol] 28 U/L Normal 14-59 [facility] Comment on above: Performed By: #### D DAVIDSON, MG, PHOS, CMP, LIPID, URIC #### [facility] [address] [place] [address] Dr. Sarmad Patino Anion gap [Moles/Vol] 12.0 mmol/L Normal Th e [facility] Comment on above: Performed By: #### D DAVIDSON, MG, PHOS, CMP, LIPID, URIC #### [facility] [address] [place] [address] Dr. Sarmad Patino AST [Catalytic activity/Vol] 20 U/L Normal 15-37 [facility] Comment on above: Performed By: #### D DAVIDSON, MG, PHOS, CMP, LIPID, URIC #### [facility] [address] [place] [address] Dr. Sarmad Patino Bilirubin [Mass/Vol] 0.5 mg/dL Normal 0.2-1.0 [facility] Comment on above: Performed By: #### D DAVIDSON, MG, PHOS, CMP, LIPID, URIC #### [facility] [address] [place] [address] Dr. Sarmad Patino Calcium [Mass/Vol] 9.1 mg/dL Normal 8.5-10.1 [facility] Comment on above: Performed By: #### D DAVIDSON, MG, PHOS, CMP, LIPID, URIC #### [facility] [address] [place] [address] Dr. Sarmad Patino Chloride [Moles/Vol] 104 mmol/L Normal 98-107 [facility] Comment on above: Performed By: #### D DAVIDSON, MG, PHOS, CMP, LIPID, URIC #### [facility] [address] [place] [address] Dr. Sarmad Patino CO2 [Moles/Vol] 25.7 mmol/L Normal 21.0-32.0 [facility] Comment on above: Performed By: #### D DAVIDSON, MG, PHOS, CMP, LIPID, URIC #### [facility] [address] [place] [address] Dr. Sarmad Patino Creatinine [Mass/Vol] 0.77 mg/dL Normal 0.55-1.02 [facility] Comment on above: Performed By: #### D DAVIDSON, MG, PHOS, CMP, LIPID, URIC #### [facility] [address] [place] [address] Dr. Sarmad Patino EGFR-AF ZIMBABWEAN >60 Normal >=60 [facility] Comment on above: Performed By: #### D DAVIDSON, MG, PHOS, CMP, LIPID, URIC #### [facility] [address] [place] [address] Dr. Sarmad aPtino EGFR-NON AF ZIMBABWEAN >60 Normal >=60 [facility] Comment on above: Performed By: #### D DAVIDSON, MG, PHOS, CMP, LIPID, URIC #### [facility] [address] [place] [address] Dr. Sarmad Patino Globulin (S) [Mass/Vol] 3.7 g/dL Normal [facility] Comment on above: Performed By: #### D DAVIDSON, MG, PHOS, CMP, LIPID, URIC #### [facility] [facility] [address] [place] [address] Dr. Sarmad Patino Glucose [Mass/Vol] 108 mg/dL Critically high 74-106 [facility] Comment on above: Performed By: #### D DAVIDSON, MG, PHOS, CMP, LIPID, URIC #### [facility] [address] [place] [address] Dr. Sarmad Patino Potassium [Moles/Vol] 3.7 mmol/L Normal 3.5-5.1 [facility] Comment on above: Performed By: #### D DAVIDSON, MG, PHOS, CMP, LIPID, URIC #### [facility] [address] [address] [address] Sarmad Patino Protein [Mass/Vol] 7.0 g/dL Normal 6.4-8.2 [facility] Comment on above: Performed By: #### D DAVIDSON, MG, PHOS, CMP, LIPID, URIC #### [facility] [address] [address] [address] Sarmad Patino Sodium [Moles/Vol] 138 mmol/L Normal 136-145 The [facility] Comment on above: Performed By: #### D DAVIDSON, MG, PHOS, CMP, LIPID, URIC #### [facility] [address] [address] [address] Sarmad Patino Urea nitrogen [Mass/Vol] 15.0 mg/dL Normal 7.0-18.0 [facility] Comment on above: Performed By: #### D DAVIDSON, MG, PHOS, CMP, LIPID, URIC #### [facility] [address] [address] [address] Sarmad Patino Urea nitrogen/Creatinine [Mass ratio] 19.5 mg/mg Normal [facility] Comment on above: Performed By: #### D DAVIDSON, MG, PHOS, CMP, LIPID, URIC #### [facility] [address] [address] [address] Sarmad Patino URIC ACID SERUMon 01-28-2022 Urate [Mass/Vol] 4.3 mg/dL Normal 2.6-6.0 [facility] Comment on above: Performed By: #### D DAVIDSON, MG, PHOS, CMP, LIPID, URIC #### [facility] [address] [address] [address] Sarmad Patino Quick Strepon 01-12-2022 S. pyogenes Org specific cx Ql (Throat) Negative [facility] Other Quick Strep [facility] Other XR CHEST 1 Von 01-07-2022 XR [...] BRITTON BERNARD Date: 2022-01-07 15:00 Normal The [facility] CBC W MANUAL DIFFon 01-04-20 22 ATYPICAL LYMPH # 1.40 103/ul Normal [facility] Comment on above: Performed By: #### D DAVIDSON, MG, PHOS, CMP, LIPID, URIC #### [facility] [address] [address] [address] Sarmad Patino ATYPICAL LYMPH % 10 % Normal [facility] Comment on above: Performed By: #### D DAVIDSON, MG, PHOS, CMP, LIPID, URIC #### [facility] [address] [address] [address] Sarmad Patino BAND # 0.6 103/ul Critically high 0.0-0.3 The [facility] Comment on above: Performed By: #### D DAVIDSON, MG, PHOS, CMP, LIPID, URIC #### [facility] [address] [address] [address] Sarmad Patino BAND % 4 % Normal 0-5 The [facility] Comment on above: Performed By: #### D DAVIDSON, MG, PHOS, CMP, LIPID, URIC #### [facility] [address] [address] [address] Sarmad Patino BASOM # 0.00 103/ul Normal 0.00-0.10 The [facility] Comment on above: Performed By: #### D DAVIDSON, MG, PHOS, CMP, LIPID, URIC #### [facility] [address] [address] [address] Sarmad Patino BASOM % 0.0 % Critically low 0.2-2.0 [facility] Comment on above: Performed By: #### D DAVIDSON, MG, PHOS, CMP, LIPID, URIC #### [facility] [address] [address] [address] Sarmad Patino BLAST # Normal [facility] Comment on above: Performed By: #### D DAVIDSON, MG, PHOS, CMP, LIPID, URIC #### [facility] [address] [address] [address] Sarmad Patino BLAST % Normal [facility] Comment on above: Performed By: #### D DAVIDSON, MG, PHOS, CMP, LIPID, URIC #### [facility] [address] [place] [address] Dr. Sarmad Patino CORRECTED WBC Normal 4.0-11.0 [facility] Comment on above: Performed By: #### D DAVIDSON, MG, PHOS, CMP, LIPID, URIC #### [facility] [address] [place] [address] Dr. Sarmad Patino EOS # 0.14 103/ul Normal 0.00-0.70 [facility] Comment on above: Performed By: #### D DAVIDSON, MG, PHOS, CMP, LIPID, URIC #### [facility] [address] [place] [address] Dr. Sarmad Patino EOS% 1.0 % Normal 0.9-7.0 [facility] Comment on above: Performed By: #### D DAVIDSON, MG, PHOS, CMP, LIPID, URIC #### [facility] [address] [place] [address] Dr. Sarmad Patino HCT 42.8 % Normal 36.0-48.0 [facility] Comment on above: Performed By: #### D DAVIDSON, MG, PHOS, CMP, LIPID, URIC #### [facility] [address] [place] [address] Dr. Sarmad Patino HGB 14.2 g/dl Normal 12.0-16.0 [facility] Comment on above: Performed By: #### D DAVIDSON, MG, PHOS, CMP, LIPID, URIC #### [facility] [address] [place] [address] Dr. Sarmad Patino LYMPHM # 0.00 103/ul Critically low 1.20-3.80 The [facility] Comment on above: Performed By: #### D DAVIDSON, MG, PHOS, CMP, LIPID, URIC #### [facility] [address] [address] [address] Sarmad Patino LYMPHM% 0.0 % Critically low 20.5-60.0 [facility] Comment on above: Performed By: #### D DAVIDSON, MG, PHOS, CMP, LIPID, URIC #### [facility] [address] [place] [address] Dr. Sarmad Patino MCH 28.8 pg Normal 26.7-34.0 The [facility] Comment on above: Performed By: #### D DAVIDSON, MG, PHOS, CMP, LIPID, URIC #### [facility] [address] [place] [address] Dr. Sarmad Patino MCHC 33.2 g/dl Normal 29.9-35.2 The [facility] Comment on above: Performed By: #### D DAVIDSON, MG, PHOS, CMP, LIPID, URIC #### [facility] [address] [place] [address] Dr. Sarmad Patino MCV 86.8 fL Normal 81.0-99.0 [facility] Comment on above: Performed By: #### D DAVIDSON, MG, PHOS, CMP, LIPID, URIC #### [facility] [address] [place] [address] Dr. Sarmad Patino METAMYELOCYTE # Normal The [facility] Comment on above: Performed By: #### D DAVIDSON, MG, PHOS, CMP, LIPID, URIC #### [facility] [address] [place] [address] Dr. Sarmad Patino METAMYELOCYTE % Normal The [facility] Comment on above: Performed By: #### D DAVIDSON, MG, PHOS, CMP, LIPID, URIC #### [facility] [address] [address] [address] Sarmad Patino MONOM# 0.84 103/ul Critically high 0.30-0.80 [facility] Comment on above: Performed By: #### D DAVIDSON, MG, PHOS, CMP, LIPID, URIC #### [facility] [address] [address] [address] Sarmad Patino MONOM% 6.0 % Normal 1.7-12.0 [facility] Comment on above: Performed By: #### D DAVIDSON, MG, PHOS, CMP, LIPID, URIC #### [facility] [address] [address] [address] Sarmad Patino MPV 11.5 fL Normal 9.5-13.5 [facility] Comment on above: Performed By: #### D DAVIDSON, MG, PHOS, CMP, LIPID, URIC #### [facility] [address] [place] [address] Dr. Sarmad Patino MYELOCYTE # 0.3 103/ul Normal [facility] Comment on above: Performed By: #### D DAVIDSON, MG, PHOS, CMP, LIPID, URIC #### [facility] [address] [place] [address] Dr. Sarmad Patino MYELOCYTE % 2 % Normal [facility] Comment on above: Performed By: #### D DAVIDSON, MG, PHOS, CMP, LIPID, URIC #### [facility] [address] [place] [address] Dr. Sarmad Patino NRBC Normal [facility] Comment on above: Performed By: #### D DAVIDSON, MG, PHOS, CMP, LIPID, URIC #### [facility] [address] [place] [address] Dr. Sarmad Patino PLT 180 103/ul Normal 150-450 [facility] Comment on above: Performed By: #### D DAVIDSON, MG, PHOS, CMP, LIPID, URIC #### [facility] [address] [place] [address] Dr. Sarmad Patino RBC 4.93 106/ul Normal 4.20-5.40 [facility] Comment on above: Performed By: #### D DAVIDSON, MG, PHOS, CMP, LIPID, URIC #### [facility] [address] [place] [address] Dr. Sarmad Patino RDW 13.9 % Normal 11.0-15.0 The [facility] Comment on above: Performed By: #### D DAVIDSON, MG, PHOS, CMP, LIPID, URIC #### [facility] [address] [address] [address] Sarmad Patino SEG # 10.78 103/ul Critically high 1.40-6.50 [facility] Comment on above: Performed By: #### D DAVIDSON, MG, PHOS, CMP, LIPID, URIC #### [facility] [address] [address] [address] Sarmad Patino SEG % 77.0 % Critically high 43.0-75.0 The [facility] Comment on above: Performed By: #### D DAVIDSON, MG, PHOS, CMP, LIPID, URIC #### [facility] [address] [address] [address] Sarmad Patino WBC 14.0 103/ul Critically high 4.0-11.0 [facility] Comment on above: Performed By: #### D DAVIDSON, MG, PHOS, CMP, LIPID, URIC #### [facility] [address] [address] [address] NECK ST W [...] middle ear cavities clear. Skull base intact. Abe Teacher spaces normal. Parotid glands normal. Submandibular glands [...] F HOPPER Date: 2022-01-03 10:40 Normal The [facility] Covid-19 PCR ([facility])on SARS-CoV-2 (COVID-19) RNA MURALI+probe Ql (Unsp spec) Detected Critically abnormal NOT DETECTED The [facility] Comment on above: Result Comment: This test is not yet approved or cleared by the [place] FDA. When there are no FDA-approved or cleared tests available, and other criteria are met, FDA can make tests available under an emergency access mechanism called an Emergency Use Authorization (EUA). The EUA for this test is supported by the [place] of Health and Human Service's declaration that [...] DAVIDSON, MG, PHOS, CMP, LIPID, URIC #### [facility] [address] [address] [address] Sarmad Patino GROUP A STREP CULTUREon S. pyogenes Ag Ql (Unsp spec) Culture Observations: Negative for Group A Streptococcus Normal The [facility] Comment on above: Performed By: #### U JUVE, LIPID, MG, CMP, DBIL, PHOS #### [facility] [address] [address] [address] Sarmad Patino INFLUENZA A AND B AGon 01-03 INFLUENZA A AG Negative Normal NEGATIVE SEE COMMENT [facility] Comment on above: Performed By: #### D DAVIDSON, MG, PHOS, CMP, LIPID, URIC #### [facility] [address] [address] [address] Sarmad Patino INFLUENZA B AG Negative Normal NEGATIVE SEE COMMENT [facility] Comment on above: Performed By: #### D DAVIDSON, MG, PHOS, CMP, LIPID, URIC #### [facility] [address] [address] [address] Sarmad Patino INTERNAL CONTROLS Within Normal Limits Normal Wi thin Normal Limits [facility] Comment on above: Performed By: #### D DAVIDSON, MG, PHOS, CMP, LIPID, URIC #### [facility] [address] [address] [address] Sarmad Patino PROF 14(COMP METB)on 022 Albumin [Mass/Vol] 2.5 g/dL Critically low 3.4-5.0 [facility] Comment on above: Performed By: #### U JUVE, LIPID, MG, CMP, DBIL, PHOS #### [facility] [address] [address] [address] Sarmad Patino Albumin/Globulin [Mass ratio] 0.5 {ratio} Normal The [facility] Comment on above: Performed By: #### U JUVE, LIPID, MG, CMP, DBIL, PHOS #### [facility] [address] [address] [address] Sarmad Patino ALP [Catalytic activity/Vol] 185 U/L Critically high 46-116 [facility] Comment on above: Performed By: #### U JUVE, LIPID, MG, CMP, DBIL, PHOS #### [facility] [address] [address] [address] Sarmad Patino ALT [Catalytic activity/Vol] 108 U/L Critically high 14-59 [facility] Comment on above: Performed By: #### U JUVE, LIPID, MG, CMP, DBIL, PHOS #### [facility] [address] [address] [address] Sarmad Patino Anion gap [Moles/Vol] 8.3 mmol/L Normal [facility] Comment on above: Performed By: #### U JUVE, LIPID, MG, CMP, DBIL, PHOS #### [facility] [address] [place] [address] Dr. Sarmad Patino AST [Catalytic activity/Vol] 59 U/L Critically high 15-37 [facility] Comment on above: Performed By: #### U JUVE, LIPID, MG, CMP, DBIL, PHOS #### [facility] [address] [place] [address] Dr. Sarmad Patino Bilirubin [Mass/Vol] 0.6 mg/dL Normal 0.2-1.0 [facility] Comment on above: Performed By: #### U JUVE, LIPID, MG, CMP, DBIL, PHOS #### [facility] [address] [place] [address] Dr. Sarmad Patino Calcium [Mass/Vol] 9.0 mg/dL Normal 8.5-10.1 [facility] Comment on above: Performed By: #### U JUVE, LIPID, MG, CMP, DBIL, PHOS #### [facility] [address] [place] [address] Dr. Sarmad Patino Chloride [Moles/Vol] 100 mmol/L Normal 98-107 [facility] Comment on above: Performed By: #### U JUVE, LIPID, MG, CMP, DBIL, PHOS #### [facility] [address] [place] [address] Dr. Sarmad Patino CO2 [Moles/Vol] 29.0 mmol/L Normal 21.0-32.0 [facility] Comment on above: Performed By: #### U JUVE, LIPID, MG, CMP, DBIL, PHOS #### [facility] [address] [place] [address] Dr. Sarmad Patino Creatinine [Mass/Vol] 1.05 mg/dL Critically high 0.55-1.02 [facility] Comment on above: Performed By: #### U JUVE, LIPID, MG, CMP, DBIL, PHOS #### [facility] [address] [place] [address] Dr. Sarmad Patino EGFR-AF ZIMBABWEAN >60 Normal >=60 [facility] Comment on above: Performed By: #### U JUVE, LIPID, MG, CMP, DBIL, PHOS #### [facility] [address] [place] [address] Dr. Sarmad Patino EGFR-NON AF ZIMBABWEAN 53 mL/min/1.73m2 Critically low >=60 [facility] Comment on above: Performed By: #### U JUVE, LIPID, MG, CMP, DBIL, PHOS #### [facility] [address] [place] [address] Dr. Sarmad Patino Globulin (S) [Mass/Vol] 4.6 g/dL Normal [facility] Comment on above: Performed By: #### U JVUE, LIPID, MG, CMP, DBIL, PHOS #### [facility] [address] [place] [address] Dr. Sarmad Patino Glucose [Mass/Vol] 154 mg/dL Critically high 74-106 [facility] Comment on above: Performed By: #### U JUVE, LIPID, MG, CMP, DBIL, PHOS #### [facility] [address] [place] [address] Dr. Sarmad Patino Potassium [Moles/Vol] 3.3 mmol/L Critically low 3.5-5.1 [facility] Comment on above: Performed By: #### U JUVE, LIPID, MG, CMP, DBIL, PHOS #### [facility] [address] [place] [address] Dr. Sarmad Patino Protein [Mass/Vol] 7.1 g/dL Normal 6.4-8.2 [facility] Comment on above: Performed By: #### U JUVE, LIPID, MG, CMP, DBIL, PHOS #### [facility] [address] [place] [address] Dr. Sarmad Patino Sodium [Moles/Vol] 134 mmol/L Critically low 136-145 [facility] Comment on above: Performed By: #### U JUVE, LIPID, MG, CMP, DBIL, PHOS #### [facility] [address] [address] [address] Sarmad Patino Urea nitrogen [Mass/Vol] 24.0 mg/dL Critically high 7.0-18.0 [facility] Comment on above: Performed By: #### U JUVE, LIPID, MG, CMP, DBIL, PHOS #### [facility] [address] [address] [address] Sarmad Patino Urea nitrogen/Creatinine [Mass ratio] 22.9 mg/mg Normal [facility] Comment on above: Performed By: #### U JUVE, LIPID, MG, CMP, DBIL, PHOS #### [facility] [address] [address] [address] Sarmad Patino STREPT SCREENon 01-03-2022 STREP SCREEN A Negative Normal NEGATIVE [facility] Comment on above: Performed By: #### U JUVE, LIPID, MG, CMP, DBIL, PHOS #### [facility] [address] [address] [address] Sarmad Patino XR CHEST 2 Von [...] MAYRA WHITESIDE Date: 2022-01-03 03:54 Normal [facility] Quick Strepon 12-28-2021 S. pyogenes Org specific cx Ql (Throat) Negative [employer] Other Quick Strep [employer] Other SARS-CoV-2 (COVID-19) RNA NA A+probe Ql (Resp)on 09-27-2022 SARS-CoV-2 (COVID-19) RNA MURALI+probe Ql (Unsp spec) Negative [employer] Other FK506 (TACROLIMUS) WHOLE BLO ODon 12-08-2021 Tacrolimus (FK506), Blood 6.6 ng/mL Normal 2.0-20.0 [facility] Comment on above: Result Comment: Trou gh (immediately following transplant) 15.0 . Trough (steady state, 2 weeks or more after transplant): 3.0 - 8.0 . Performed by LC-MS/MS technology. Performed By: #### D DAVIDSON, MG, PHOS, CMP, LIPID, URIC #### [facility] [address] [place] [address] Dr. Sarmad Patino RAPAMUNE(SIROLIMUS)on 2021 Rapamune(Sirolimus), whole blood 9.6 ng/mL Normal 3.0-20.0 [facility] Comment on above: Result Comment: Perf ormed by LC/MS-MS technology . This test was developed and its performance characteristics determined by [employer]. It has not been cleared or approved by the Food and Drug Administration. Performed By: #### D DAVIDSON, MG, PHOS, CMP, LIPID, URIC #### [facility] [address] [place] [address] Dr. Sarmad Patino BILIRUBIN CONJUGATED (DIRECT )on 12-05-2021 BILI, CONJUGATED 0.1 mg/dL Normal 0.0-0.2 [facility] Comment on above: Performed By: #### D DAVIDSON, MG, PHOS, CMP, LIPID, URIC #### [facility] [address] [place] [address] Dr. Sarmad Patino CBC W MANUAL DIFFon 12-06-19 22 ATYPICAL LYMPH # Normal [facility] Comment on above: Performed By: #### D DAVIDSON, MG, PHOS, CMP, LIPID, URIC #### [facility] [address] [place] [address] Dr. Sarmad Patino ATYPICAL LYMPH % Normal [facility] Comment on above: Performed By: #### D DAVIDSON, MG, PHOS, CMP, LIPID, URIC #### [facility] [address] [place] [address] Dr. Sarmad Patino BAND # Normal 0.0-0.3 [facility] Comment on above: Performed By: #### D DAVIDSON, MG, PHOS, CMP, LIPID, URIC #### [facility] [address] [address] [address] Sarmad Patino BAND % Normal 0-5 [facility] Comment on above: Performed By: #### D DAVIDSON, MG, PHOS, CMP, LIPID, URIC #### [facility] [address] [address] [address] Sarmad Patino BASOM # 0.00 103/ul Normal 0.00-0.10 [facility] Comment on above: Performed By: #### D DAVIDSON, MG, PHOS, CMP, LIPID, URIC #### [facility] [address] [place] [address] Dr. Sarmad Patino BASOM % 0.0 % Critically low 0.2-2.0 [facility] Comment on above: Performed By: #### D DAVIDSON, MG, PHOS, CMP, LIPID, URIC #### [facility] [address] [address] [address] Sarmad Patino BLAST # Normal [facility] Comment on above: Performed By: #### D DAVIDSON, MG, PHOS, CMP, LIPID, URIC #### [facility] [address] [address] [address] Sarmad Patino BLAST % Normal [facility] Comment on above: Performed By: #### D DAVIDSON, MG, PHOS, CMP, LIPID, URIC #### [facility] [address] [address] [address] Sarmad Patino CORRECTED WBC Normal 4.0-11.0 The [facility] Comment on above: Performed By: #### D DAVIDSON, MG, PHOS, CMP, LIPID, URIC #### [facility] [address] [address] [address] Sarmad Patino EOS # 0.15 103/ul Normal 0.00-0.70 [facility] Comment on above: Performed By: #### D DAVIDSON, MG, PHOS, CMP, LIPID, URIC #### [facility] [address] [address] [address] Sarmad Patino EOS% 2.0 % Normal 0.9-7.0 [facility] Comment on above: Performed By: #### D DAVIDSON, MG, PHOS, CMP, LIPID, URIC #### [facility] [address] [address] [address] Sarmad Patino HCT 47.5 % Normal 36.0-48.0 [facility] Comment on above: Performed By: #### D DAVIDSON, MG, PHOS, CMP, LIPID, URIC #### [facility] [address] [place] [address] Dr. Sarmad Patino HGB 15.6 g/dl Normal 12.0-16.0 [facility] Comment on above: Performed By: #### D DAVIDSON, MG, PHOS, CMP, LIPID, URIC #### [facility] [address] [place] [address] Dr. Sarmad Patino LYMPHM # 1.46 103/ul Normal 1.20-3.80 [facility] Comment on above: Performed By: #### D DAVIDSON, MG, PHOS, CMP, LIPID, URIC #### [facility] [address] [place] [address] Dr. Sarmad Patino LYMPHM% 19.0 % Critically low 20.5-60.0 [facility] Comment on above: Performed By: #### D DAVIDSON, MG, PHOS, CMP, LIPID, URIC #### [facility] [address] [place] [address] Dr. Sarmad Patino MCH 28.9 pg Normal 26.7-34.0 [facility] Comment on above: Performed By: #### D DAVIDSON, MG, PHOS, CMP, LIPID, URIC #### [facility] [address] [place] [address] Dr. Sarmad Patino MCHC 32.8 g/dl Normal 29.9-35.2 [facility] Comment on above: Performed By: #### D DAVIDSON, MG, PHOS, CMP, LIPID, URIC #### [facility] [address] [place] [address] Dr. Sarmad Patino MCV 88.1 fL Normal 81.0-99.0 [facility] Comment on above: Performed By: #### D DAVIDSNO, MG, PHOS, CMP, LIPID, URIC #### [facility] [address] [address] [address] Sarmad Patino METAMYELOCYTE # Normal [facility] Comment on above: Performed By: #### D DAVIDSON, MG, PHOS, CMP, LIPID, URIC #### [facility] [address] [address] [address] Sarmad Patino METAMYELOCYTE % Normal [facility] Comment on above: Performed By: #### D DAVIDSON, MG, PHOS, CMP, LIPID, URIC #### [facility] [address] [address] [address] Sarmad Patino MONOM# 0.85 103/ul Critically high 0.30-0.80 [facility] Comment on above: Performed By: #### D DAVIDSON, MG, PHOS, CMP, LIPID, URIC #### [facility] [address] [address] [address] Sarmad Patino MONOM% 11.0 % Normal 1.7-12.0 [facility] Comment on above: Performed By: #### D DAVIDSON, MG, PHOS, CMP, LIPID, URIC #### [facility] [address] [address] [address] Sarmad Patino MPV 11.3 fL Normal 9.5-13.5 [facility] Comment on above: Performed By: #### D DAVIDSON, MG, PHOS, CMP, LIPID, URIC #### [facility] [address] [address] [address] Sarmad Patino MYELOCYTE # Normal The [facility] Comment on above: Performed By: #### D DAVIDSON, MG, PHOS, CMP, LIPID, URIC #### [facility] [address] [address] [address] Sarmad Patino MYELOCYTE % Normal The [facility] Comment on above: Performed By: #### D DAVIDSON, MG, PHOS, CMP, LIPID, URIC #### [facility] [address] [address] [address] Sarmad Patino NRBC Normal The [facility] Comment on above: Performed By: #### D DAVIDSON, MG, PHOS, CMP, LIPID, URIC #### [facility] [address] [address] [address] Sarmad Patino PLT 214 103/ul Normal 150-450 [facility] Comment on above: Performed By: #### D DAVIDSON, MG, PHOS, CMP, LIPID, URIC #### [facility] [address] [address] [address] Sarmad Patino RBC 5.39 106/ul Normal 4.20-5.40 [facility] Comment on above: Performed By: #### D DAVIDSON, MG, PHOS, CMP, LIPID, URIC #### [facility] [address] [address] [address] Sarmad Patino RDW 13.8 % Normal 11.0-15.0 [facility] Comment on above: Performed By: #### D DAVIDSON, MG, PHOS, CMP, LIPID, URIC #### [facility] [address] [address] [address] Sarmad Patino SEG # 5.24 103/ul Normal 1.40-6.50 [facility] Comment on above: Performed By: #### D DAVIDSON, MG, PHOS, CMP, LIPID, URIC #### [facility] [address] [address] [address] Sarmad Patino SEG % 68.0 % Normal 43.0-75.0 The [facility] Comment on above: Performed By: #### D DAVIDSON, MG, PHOS, CMP, LIPID, URIC #### [facility] [address] [address] [address] Sarmad Patino WBC 7.7 103/ul Normal 4.0-11.0 The [facility] Comment on above: Performed By: #### D DAVIDSON, MG, PHOS, CMP, LIPID, URIC #### [facility] [address] [address] [address] Sarmad Patino LIPID PROFILEon 12-05-2021 CHOL-HDL RATIO NORM SEE BELOW Normal The [facility] Comment on above: Result Comment: 3.3 - 4.4 LOW RISK 4.4 - 7.1 AVERAGE RISK 7.1 - 11.0 MODERATE RISK >11.0 HIGH RISK Performed By: #### D DAVIDSON, MG, PHOS, CMP, LIPID, URIC #### [facility] [address] [address] [address] Sarmad Patino Cholesterol [Mass/Vol] 170 mg/dL Normal <=200 [facility] Comment on above: Performed By: #### D DAVIDSON, MG, PHOS, CMP, LIPID, URIC #### [facility] [address] [address] [address] Sarmad Patino Cholesterol in HDL [Mass/Vol] 54 mg/dL Normal 40-60 [facility] Comment on above: Performed By: #### D DAVIDSON, MG, PHOS, CMP, LIPID, URIC #### [facility] [address] [address] [address] Sarmad Patino Cholesterol in LDL [Mass/Vol] 92.2 mg/dL Normal [facility] Comment on above: Performed By: #### D DAVIDSON, MG, PHOS, CMP, LIPID, URIC #### [facility] [address] [address] [address] Sarmad Patino Cholesterol.total/Cho lesterol in HDL [Mass ratio] 3.1 {ratio} Normal [facility] Comment on above: Performed By: #### D DAVIDSON, MG, PHOS, CMP, LIPID, URIC #### [facility] [address] [address] [address] Sarmad Patino HDL NORMAL > or = 60 mg/dl - LO W CARDIOVASCULAR RISK <40 mg/dl - HIGH CARDIOVASCULAR RISK Normal [facility] Comment on above: Performed By: #### D DAVIDSON, MG, PHOS, CMP, LIPID, URIC #### [facility] [address] [place] [address] Dr. Sarmad Patino LDL CALC NORMAL SEE BELOW Normal [facility] Comment on above: Result Comment: <100 mg/dl OPTIMAL 100 - 129 mg/dl NEAR OR ABOVE OPTIMAL 130 - 159 mg/dl BORDERLINE HIGH 160 - 189 mg/dl HIGH >190 mg/dl VERY HIGH Performed By: #### D DAVIDSON, MG, PHOS, CMP, LIPID, URIC #### [facility] [address] [place] [address] Dr. Sarmad Patino Triglyceride [Mass/Vol] 119 mg/dL Normal <=150 [facility] Comment on above: Performed By: #### D DAVIDSON, MG, PHOS, CMP, LIPID, URIC #### [facility] [address] [place] [address] Dr. Sarmad Patino VLDL CALC 23.8 mg/dL Normal [facility] Comment on above: Performed By: #### D DAVIDSON, MG, PHOS, CMP, LIPID, URIC #### [facility] [address] [place] [address] Dr. Sarmad Patino MAGNESIUMon 12-05-2021 Magnesium [Mass/Vol] 1.8 mg/dL Normal 1.8-2.4 [facility] Comment on above: Performed By: #### D DAVIDSON, MG, PHOS, CMP, LIPID, URIC #### [facility] [address] [place] [address] Dr. Sarmad Patino PHOSPHORUSon 12-05-2021 Phosphate [Mass/Vol] 3.8 mg/dL Normal 2.6-4.7 [facility] Comment on above: Performed By: #### D DAVIDSON, MG, PHOS, CMP, LIPID, URIC #### [facility] [address] [place] [address] Dr. Sarmad Patino PROF 14(COMP METB)on 022 Albumin [Mass/Vol] 3.7 g/dL Normal 3.4-5.0 [facility] Comment on above: Performed By: #### D DAVIDSON, MG, PHOS, CMP, LIPID, URIC #### [facility] [address] [place] [address] Dr. Sarmad Patino Albumin/Globulin [Mass ratio] 1.0 {ratio} Normal [facility] Comment on above: Performed By: #### D DAVIDSON, MG, PHOS, CMP, LIPID, URIC #### [facility] [address] [place] [address] Dr. Sarmad Patino ALP [Catalytic activity/Vol] 151 U/L Critically high 46-116 [facility] Comment on above: Performed By: #### D DAVIDSON, MG, PHOS, CMP, LIPID, URIC #### [facility] [address] [place] [address] Dr. Sarmad Patino ALT [Catalytic activity/Vol] 27 U/L Normal 14-59 [facility] Comment on above: Performed By: #### D DAVIDSON, MG, PHOS, CMP, LIPID, URIC #### [facility] [address] [place] [address] Dr. Sarmad Patino Anion gap [Moles/Vol] 14.5 mmol/L Normal Th e [facility] Comment on above: Performed By: #### D DAVIDSON, MG, PHOS, CMP, LIPID, URIC #### [facility] [address] [place] [address] Dr. Sarmad Patino AST [Catalytic activity/Vol] 25 U/L Normal 15-37 [facility] Comment on above: Performed By: #### D DAVIDSON, MG, PHOS, CMP, LIPID, URIC #### [facility] [address] [place] [address] Dr. Sarmad Patino Bilirubin [Mass/Vol] 0.4 mg/dL Normal 0.2-1.0 [facility] Comment on above: Performed By: #### D DAVIDSON, MG, PHOS, CMP, LIPID, URIC #### [facility] [address] [place] [address] Dr. Sarmad Patino Calcium [Mass/Vol] 9.4 mg/dL Normal 8.5-10.1 [facility] Comment on above: Performed By: #### D DAVIDSON, MG, PHOS, CMP, LIPID, URIC #### [facility] [address] [place] [address] Dr. Sarmad Patino Chloride [Moles/Vol] 103 mmol/L Normal 98-107 [facility] Comment on above: Performed By: #### D DAVIDSON, MG, PHOS, CMP, LIPID, URIC #### [facility] [address] [place] [address] Dr. Sarmad Patino CO2 [Moles/Vol] 26.5 mmol/L Normal 21.0-32.0 [facility] Comment on above: Performed By: #### D DAVIDSON, MG, PHOS, CMP, LIPID, URIC #### [facility] [address] [address] [address] Sarmad Patino Creatinine [Mass/Vol] 0.87 mg/dL Normal 0.55-1.02 [facility] Comment on above: Performed By: #### D DAVIDSON, MG, PHOS, CMP, LIPID, URIC #### [facility] [address] [address] [address] Sarmad Patino EGFR-AF ZIMBABWEAN >60 Normal >=60 [facility] Comment on above: Performed By: #### D DAVIDSON, MG, PHOS, CMP, LIPID, URIC #### [facility] [address] [place] [address] Dr. Sarmad Patino EGFR-NON AF ZIMBABWEAN >60 Normal >=60 [facility] Comment on above: Performed By: #### D DAVIDSON, MG, PHOS, CMP, LIPID, URIC #### [facility] [address] [place] [address] Dr. Sarmad Patino Globulin (S) [Mass/Vol] 3.8 g/dL Normal [facility] Comment on above: Performed By: #### D DAVIDSON, MG, PHOS, CMP, LIPID, URIC #### [facility] [address] [address] [address] Sarmad Patino Glucose [Mass/Vol] 104 mg/dL Normal 74-106 [facility] Comment on above: Performed By: #### D DAVIDSON, MG, PHOS, CMP, LIPID, URIC #### [facility] [address] [address] [address] Sarmad Patino Potassium [Moles/Vol] 4.0 mmol/L Normal 3.5-5.1 [facility] Comment on above: Performed By: #### D DAVIDSON, MG, PHOS, CMP, LIPID, URIC #### [facility] [address] [address] [address] Sarmad Patino Protein [Mass/Vol] 7.5 g/dL Normal 6.4-8.2 [facility] Comment on above: Performed By: #### D DAVIDSON, MG, PHOS, CMP, LIPID, URIC #### [facility] [address] [address] [address] Sarmad Patino Sodium [Moles/Vol] 140 mmol/L Normal 136-145 [facility] Comment on above: Performed By: #### D DAVIDSON, MG, PHOS, CMP, LIPID, URIC #### [facility] [address] [place] [address] Dr. Sarmad Patnio Urea nitrogen [Mass/Vol] 19.0 mg/dL Critically high 7.0-18.0 [facility] Comment on above: Performed By: #### D DAVIDSON, MG, PHOS, CMP, LIPID, URIC #### [facility] [address] [place] [address] Dr. Sarmad Patino Urea nitrogen/Creatinine [Mass ratio] 21.8 mg/mg Normal [facility] Comment on above: Performed By: #### D DAVIDSON, MG, PHOS, CMP, LIPID, URIC #### [facility] [address] [place] [address] Dr. Sarmad Patino URIC ACID SERUMon 12-05-2021 Urate [Mass/Vol] 5.2 mg/dL Normal 2.6-6.0 [facility] Comment on above: Performed By: #### D DAVIDSON, MG, PHOS, CMP, LIPID, URIC #### [facility] [address] [place] [address] Dr. Sarmad SALAZAROLIMU, WHOLE BLOODon EVEROLIMUS 7.0 ng/mL Normal 3.0-8.0 [facility] Comment on above: Result Comment: Perf ormed by LC-MS/MS technology. Performed By: #### D DAVIDSON, MG, PHOS, CMP, LIPID, URIC #### [facility] [address] [place] [address] Dr. Sarmad Patino FK506 (TACROLIMUS) WHOLE BLO ODon 11-10-2021 Tacrolimus (FK506), Blood 6.4 ng/mL Normal 2.0-20.0 [facility] Comment on above: Result Comment: Trou gh (immediately following transplant) 15.0 . Trough (steady state, 2 weeks or more after transplant): 3.0 - 8.0 . Performed by LC-MS/MS technology. Performed By: #### D DAVIDSON, MG, PHOS, CMP, LIPID, URIC #### [facility] [address] [place] [address] Dr. Sarmad Patino BK VIRUS PCR QUANTon 022 BKV DNA QUANT PCR PLASMA Negative Normal Negative The [facility] Comment on above: Result Comment: No B K DNA detected. . The linear range of the assay is 22 - 100,000,000 IU/mL. Performed By: #### U JUVE, LIPID, MG, CMP, DBIL, PHOS #### [facility] [address] [place] [address] Dr. Sarmad Patino Log10 BKV DNA Plasma Normal The [facility] Comment on above: Performed By: #### U JUVE, LIPID, MG, CMP, DBIL, PHOS #### [facility] [address] [place] [address] Dr. Sarmad Patino BILIRUBIN CONJUGATED (DIRECT )on 11-07-2021 BILI, CONJUGATED 0.1 mg/dL Normal 0.0-0.2 [facility] Comment on above: Performed By: #### D DAVIDSON, MG, PHOS, CMP, LIPID, URIC #### [facility] [address] [place] [address] Dr. Sarmad Patino CBC AUTO DIFFon 11-07-2021 BASO # 0.0 103/ul Normal 0.0-0.1 [facility] Comment on above: Performed By: #### D DAVIDSON, MG, PHOS, CMP, LIPID, URIC #### [facility] [address] [place] [address] Dr. Sarmad Patino Basophils/100 WBC (Bld) 0.3 % Normal 0.2-2.0 [facility] Comment on above: Performed By: #### D DAVIDSON, MG, PHOS, CMP, LIPID, URIC #### [facility] [address] [place] [address] Dr. Sarmad Patino EO # 0.1 103/ul Normal 0.0-0.7 The [facility] Comment on above: Performed By: #### D DAVIDSON, MG, PHOS, CMP, LIPID, URIC #### [facility] [address] [place] [address] Dr. Sarmad Patino Eosinophils/100 WBC (Bld) 2.1 % Normal 0.9-7.0 [facility] Comment on above: Performed By: #### D DAVIDSON, MG, PHOS, CMP, LIPID, URIC #### [facility] [address] [place] [address] Dr. Sarmad Patino Erythrocyte distribution width (RBC) [Ratio] 13.5 % Normal 11.0-15.0 The [facility] Comment on above: Performed By: #### D DAVIDSON, MG, PHOS, CMP, LIPID, URIC #### [facility] [address] [place] [address] Dr. Sarmad Patino Hematocrit (Bld) [Volume fraction] 46.7 % Normal 36.0-48.0 [facility] Comment on above: Performed By: #### D DAVIDSON, MG, PHOS, CMP, LIPID, URIC #### [facility] [address] [place] [address] Dr. Sarmad Patino Hemoglobin (Bld) [Mass/Vol] 15.1 g/dL Normal 12.0-16.0 [facility] Comment on above: Performed By: #### D DAVIDSON, MG, PHOS, CMP, LIPID, URIC #### [facility] [address] [place] [address] Dr. Sarmad Patino IG # 0.03 10e3/ul Normal 0.00-0.03 The [facility] Comment on above: Performed By: #### D DAVIDSON, MG, PHOS, CMP, LIPID, URIC #### [facility] [address] [place] [address] Dr. Sarmad Patino IG % 0.5 % Normal 0.0-0.5 [facility] Comment on above: Performed By: #### D DAVIDSON, MG, PHOS, CMP, LIPID, URIC #### [facility] [address] [place], [place] [id number] Dr. Sarmad Patino LYMPH # 1.3 103/ul Normal 1.2-3.8 The [facility] Comment on above: Performed By: #### D DAVIDSON, MG, PHOS, CMP, LIPID, URIC #### [facility] [address] [place] [address] Dr. Sarmad Patino Lymphocytes/100 WBC (Bld) 19.9 % Critically low 20.5-60.0 The [facility] Comment on above: Performed By: #### D DAVIDSON, MG, PHOS, CMP, LIPID, URIC #### [facility] [address] [place] [address] Dr. Sarmad Patino MANUAL DIFF REQ NO Normal [facility] Comment on above: Performed By: #### D DAVIDSON, MG, PHOS, CMP, LIPID, URIC #### [facility] [address] [place] [address] Dr. Sarmad Patino MCH (RBC) [Entitic mass] 28.6 pg Normal 26.7-34.0 [facility] Comment on above: Performed By: #### D DAVIDSON, MG, PHOS, CMP, LIPID, URIC #### [facility] [address] [place] [address] Dr. Sarmad Patino MCHC (RBC) [Mass/Vol] 32.3 g/dL Normal 29.9-35.2 The [facility] Comment on above: Performed By: #### D DAVIDSON, MG, PHOS, CMP, LIPID, URIC #### [facility] [address] [place] [address] Dr. Sarmad Patino MCV (RBC) [Entitic vol] 88.4 fL Normal 81.0-99.0 [facility] Comment on above: Performed By: #### D DAVIDSON, MG, PHOS, CMP, LIPID, URIC #### [facility] [address] [place] [address] Dr. Sarmad Patino MONO # 0.8 103/ul Normal 0.3-0.8 The [facility] Comment on above: Performed By: #### D DAVIDSON, MG, PHOS, CMP, LIPID, URIC #### [facility] [address] [address] [address] Sarmad Patino Monocytes/100 WBC (Bld) 12.9 % Critically high 1.7-12.0 [facility] Comment on above: Performed By: #### D DAVIDSON, MG, PHOS, CMP, LIPID, URIC #### [facility] [address] [address] [address] Sarmad Patino NEUT # 4.0 103/ul Normal 1.4-6.5 [facility] Comment on above: Performed By: #### D DAVIDSON, MG, PHOS, CMP, LIPID, URIC #### [facility] [address] [place] [address] Dr. Sarmad Patino Neutrophils/100 WBC (Bld) 64.3 % Normal 43.0-75.0 [facility] Comment on above: Performed By: #### D DAVIDSON, MG, PHOS, CMP, LIPID, URIC #### [facility] [address] [place] [address] Dr. Sarmad Patino Platelet mean volume (Bld) [Entitic vol] 11.3 fL Normal 9.5-13.5 [facility] Comment on above: Performed By: #### D DAVIDSON, MG, PHOS, CMP, LIPID, URIC #### [facility] [address] [place] [address] Dr. Sarmad Patino PLT 241 103/ul Normal 150-450 [facility] Comment on above: Performed By: #### D DAVIDSON, MG, PHOS, CMP, LIPID, URIC #### [facility] [address] [place] [address] Dr. Sarmad Patino RBC 5.28 106/ul Normal 4.20-5.40 [facility] Comment on above: Performed By: #### D DAVIDSON, MG, PHOS, CMP, LIPID, URIC #### [facility] [address] [place] [address] Dr. Sarmad Patino WBC 6.3 103/ul Normal 4.0-11.0 [facility] Comment on above: Performed By: #### D DAVIDSON, MG, PHOS, CMP, LIPID, URIC #### [facility] [address] [address] [address] Sarmad Patino GLYCOHEMOGLOBIN A1Con 2021 ADA RECOMMENDATION SEE BELOW Normal [facility] Comment on above: Result Comment: ADA RECOMMENDED LIMIT 4.0 - 6.0 ADA THERAPEUTIC TARGET < 7.0 ACTION SUGGESTED > 7.0 Performed By: #### D DAVIDSON, MG, PHOS, CMP, LIPID, URIC #### [facility] [address] [address] [address] Sarmad Patino Glucose [Mass/Vol] 120 mg/dL Normal [facility] Comment on above: Performed By: #### D DAVIDSON, MG, PHOS, CMP, LIPID, URIC #### [facility] [address] [place] [address] Dr. Sarmad Patino HbA1c (Bld) [Mass fraction] 5.8 % Normal 4.5-6.2 [facility] Comment on above: Performed By: #### D DAVIDSON, MG, PHOS, CMP, LIPID, URIC #### [facility] [address] [place] [address] Dr. Sarmad Patino LIPID PROFILEon 11-07-2021 CHOL-HDL RATIO NORM SEE BELOW Normal [facility] Comment on above: Result Comment: 3.3 - 4.4 LOW RISK 4.4 - 7.1 AVERAGE RISK 7.1 - 11.0 MODERATE RISK >11.0 HIGH RISK Performed By: #### D DAVIDSON, MG, PHOS, CMP, LIPID, URIC #### [facility] [address] [place] [address] Dr. Sarmad Patino Cholesterol [Mass/Vol] 157 mg/dL Normal <=200 [facility] Comment on above: Performed By: #### D DAVIDSON, MG, PHOS, CMP, LIPID, URIC #### [facility] [address] [address] [address] Sarmad Patino Cholesterol in HDL [Mass/Vol] 48 mg/dL Normal 40-60 [facility] Comment on above: Performed By: #### D DAVIDSON, MG, PHOS, CMP, LIPID, URIC #### [facility] [address] [place] [address] Dr. Sarmad Patino Cholesterol in LDL [Mass/Vol] 89.6 mg/dL Normal The [facility] Comment on above: Performed By: #### D DAVIDSON, MG, PHOS, CMP, LIPID, URIC #### [facility] [address] [address] [address] Sarmad Patino Cholesterol.total/Cho lesterol in HDL [Mass ratio] 3.3 {ratio} Normal [facility] Comment on above: Performed By: #### D DAVIDSON, MG, PHOS, CMP, LIPID, URIC #### [facility] [address] [address] [address] Sarmad Patino HDL NORMAL > or = 60 mg/dl - LO W CARDIOVASCULAR RISK <40 mg/dl - HIGH CARDIOVASCULAR RISK Normal [facility] Comment on above: Performed By: #### D DAVIDSON, MG, PHOS, CMP, LIPID, URIC #### [facility] [address] [place] [address] Dr. Sarmad Patino LDL CALC NORMAL SEE BELOW Normal [facility] Comment on above: Result Comment: <100 mg/dl OPTIMAL 100 - 129 mg/dl NEAR OR ABOVE OPTIMAL 130 - 159 mg/dl BORDERLINE HIGH 160 - 189 mg/dl HIGH >190 mg/dl VERY HIGH Performed By: #### D DAVIDSON, MG, PHOS, CMP, LIPID, URIC #### [facility] [address] [address] [address] Sarmad Patino Triglyceride [Mass/Vol] 97 mg/dL Normal <=150 [facility] Comment on above: Performed By: #### D DAVIDSON, MG, PHOS, CMP, LIPID, URIC #### [facility] [address] [address] [address] Sarmad Patino VLDL CALC 19.4 mg/dL Normal [facility] Comment on above: Performed By: #### D DAVIDSON, MG, PHOS, CMP, LIPID, URIC #### [facility] [address] [place] [address] Dr. Sarmad Patino MAGNESIUMon 11-07-2021 Magnesium [Mass/Vol] 1.9 mg/dL Normal 1.8-2.4 [facility] Comment on above: Performed By: #### D DAVIDSON, MG, PHOS, CMP, LIPID, URIC #### [facility] [address] [place] [address] Dr. Sarmad Patino PHOSPHORUSon 11-07-2021 Phosphate [Mass/Vol] 3.4 mg/dL Normal 2.6-4.7 [facility] Comment on above: Performed By: #### D DAVIDSON, MG, PHOS, CMP, LIPID, URIC #### [facility] [address] [place] [address] Dr. Sarmad Patino PROF 14(COMP METB)on Albumin [Mass/Vol] 3.6 g/dL Normal 3.4-5.0 [facility] Comment on above: Performed By: #### D DAVIDSON, MG, PHOS, CMP, LIPID, URIC #### [facility] [address] [place] [address] Dr. Sarmad Patino Albumin/Globulin [Mass ratio] 0.9 {ratio} Normal [facility] Comment on above: Performed By: #### D DAVIDSON, MG, PHOS, CMP, LIPID, URIC #### [facility] [address] [place] [address] Dr. Sarmad Patino ALP [Catalytic activity/Vol] 158 U/L Critically high 46-116 [facility] Comment on above: Performed By: #### D DAVIDSON, MG, PHOS, CMP, LIPID, URIC #### [facility] [address] [place] [address] Dr. Sarmad Patino ALT [Catalytic activity/Vol] 23 U/L Normal 14-59 [facility] Comment on above: Performed By: #### D DAVIDSON, MG, PHOS, CMP, LIPID, URIC #### [facility] [address] [place] [address] Dr. Sarmad Patino Anion gap [Moles/Vol] 14.8 mmol/L Normal [facility] Comment on above: Performed By: #### D DAVIDSON, MG, PHOS, CMP, LIPID, URIC #### [facility] [address] [place] [address] Dr. Sarmad Patino AST [Catalytic activity/Vol] 18 U/L Normal 15-37 [facility] Comment on above: Performed By: #### D DAVIDSON, MG, PHOS, CMP, LIPID, URIC #### [facility] [address] [address] [address] Sarmad Patino Bilirubin [Mass/Vol] 0.4 mg/dL Normal 0.2-1.0 [facility] Comment on above: Performed By: #### D DAVIDSON, MG, PHOS, CMP, LIPID, URIC #### [facility] [address] [address] [address] Sarmad Patino Calcium [Mass/Vol] 9.3 mg/dL Normal 8.5-10.1 [facility] Comment on above: Performed By: #### D DAVIDSON, MG, PHOS, CMP, LIPID, URIC #### [facility] [address] [place] [address] Dr. Sarmad Patino Chloride [Moles/Vol] 105 mmol/L Normal 98-107 [facility] Comment on above: Performed By: #### D DAVIDSON, MG, PHOS, CMP, LIPID, URIC #### [facility] [address] [address] [address] Sarmad Patino CO2 [Moles/Vol] 26.1 mmol/L Normal 21.0-32.0 [facility] Comment on above: Performed By: #### D DAVIDSON, MG, PHOS, CMP, LIPID, URIC #### [facility] [address] [address] [address] Sarmad Patino Creatinine [Mass/Vol] 0.84 mg/dL Normal 0.55-1.02 [facility] Comment on above: Performed By: #### D DAVIDSON, MG, PHOS, CMP, LIPID, URIC #### [facility] [address] [address] [address] Sarmad Patino EGFR-AF ZIMBABWEAN >60 Normal >=60 [facility] Comment on above: Performed By: #### D DAVIDSON, MG, PHOS, CMP, LIPID, URIC #### [facility] [address] [address] [address] Sarmad Patino EGFR-NON AF ZIMBABWEAN >60 Normal >=60 [facility] Comment on above: Performed By: #### D DAVIDSON, MG, PHOS, CMP, LIPID, URIC #### [facility] [address] [address] [address] Sarmad Patino Globulin (S) [Mass/Vol] 3.8 g/dL Normal [facility] Comment on above: Performed By: #### D DAVIDSON, MG, PHOS, CMP, LIPID, URIC #### [facility] [address] [place] [address] Dr. Sarmad Patino Glucose [Mass/Vol] 97 mg/dL Normal 74-106 [facility] Comment on above: Performed By: #### D DAVIDSON, MG, PHOS, CMP, LIPID, URIC #### [facility] [address] [place] [address] Dr. Sarmad Patino Potassium [Moles/Vol] 3.9 mmol/L Normal 3.5-5.1 [facility] Comment on above: Performed By: #### D DAVIDSON, MG, PHOS, CMP, LIPID, URIC #### [facility] [address] [place] [address] Dr. Sarmad Patino Protein [Mass/Vol] 7.4 g/dL Normal 6.4-8.2 [facility] Comment on above: Performed By: #### D DAVIDSON, MG, PHOS, CMP, LIPID, URIC #### [facility] [address] [place] [address] Dr. Sarmad Patino Sodium [Moles/Vol] 142 mmol/L Normal 136-145 [facility] Comment on above: Performed By: #### D DAVIDSON, MG, PHOS, CMP, LIPID, URIC #### [facility] [address] [place] [address] Dr. Sarmad Patino Urea nitrogen [Mass/Vol] 21.0 mg/dL Critically high 7.0-18.0 [facility] Comment on above: Performed By: #### D DAVIDSON, MG, PHOS, CMP, LIPID, URIC #### [facility] [address] [place] [address] Dr. Sarmad Patino Urea nitrogen/Creatinine [Mass ratio] 25.0 mg/mg Normal [facility] Comment on above: Performed By: #### D DAVIDSON, MG, PHOS, CMP, LIPID, URIC #### [facility] [address] [address] [address] Sarmad Patino URIC ACID SERUMon 11-07-2021 Urate [Mass/Vol] 5.1 mg/dL Normal 2.6-6.0 [facility] Comment on above: Performed By: #### D DAVIDSON, MG, PHOS, CMP, LIPID, URIC #### [facility] [address] [address] [address] Sarmad Patino BOX TEST SENT OUTon 10-16-19 22 SENT TO REF LAB 10/15/2021 Normal [facility] Comment on above: Performed By: #### D DAVIDSON, MG, PHOS, CMP, LIPID, URIC #### [facility] [address] [address] [address] Sarmad Patino EVEROLIMU, WHOLE BLOODon EVEROLIMUS 6.7 ng/mL Normal 3.0-8.0 [facility] Comment on above: Result Comment: Perf ormed by LC-MS/MS technology. Performed By: #### D DAVIDSON, MG, PHOS, CMP, LIPID, URIC #### [facility] [address] [place] [address] Dr. Sarmad Patino FK506 (TACROLIMUS) WHOLE BLO ODon 10-10-2021 Tacrolimus (FK506), Blood 5.9 ng/mL Normal 2.0-20.0 [facility] Comment on above: Result Comment: Trou gh (immediately following transplant) 15.0 . Trough (steady state, 2 weeks or more after transplant): 3.0 - 8.0 . Performed by LC-MS/MS technology. Performed By: #### D DAVIDSON, MG, PHOS, CMP, LIPID, URIC #### [facility] [address] [place] [address] Dr. Sarmad Patino BILIRUBIN CONJUGATED (DIRECT )on 10-08-2021 BILI, CONJUGATED 0.1 mg/dL Normal 0.0-0.2 [facility] Comment on above: Performed By: #### U JVUE, LIPID, MG, CMP, DBIL, PHOS #### [facility] [address] [address] [address] Sarmad Patino CBC AUTO DIFFon 10-08-2021 BASO # 0.0 103/ul Normal 0.0-0.1 [facility] Comment on above: Performed By: #### D DAVIDSON, MG, PHOS, CMP, LIPID, URIC #### [facility] [address] [address] [address] Sarmad Patino Basophils/100 WBC (Bld) 0.1 % Critically low 0.2-2.0 [facility] Comment on above: Performed By: #### D DAVIDSON, MG, PHOS, CMP, LIPID, URIC #### [facility] [address] [place] [address] Dr. Sarmad Patino EO # 0.1 103/ul Normal 0.0-0.7 [facility] Comment on above: Performed By: #### D DAVIDSON, MG, PHOS, CMP, LIPID, URIC #### [facility] [address] [place] [address] Dr. Sarmad Patino Eosinophils/100 WBC (Bld) 1.4 % Normal 0.9-7.0 [facility] Comment on above: Performed By: #### D DAVIDSON, MG, PHOS, CMP, LIPID, URIC #### [facility] [address] [place] [address] Dr. Sarmad Patino Erythrocyte distribution width (RBC) [Ratio] 13.6 % Normal 11.0-15.0 [facility] Comment on above: Performed By: #### D DAVIDSON, MG, PHOS, CMP, LIPID, URIC #### [facility] [address] [place] [address] Dr. Sarmad Patino Hematocrit (Bld) [Volume fraction] 47.5 % Normal 36.0-48.0 [facility] Comment on above: Performed By: #### D DAVIDSON, MG, PHOS, CMP, LIPID, URIC #### [facility] [address] [place] [address] Dr. Sarmad Patino Hemoglobin (Bld) [Mass/Vol] 15.7 g/dL Normal 12.0-16.0 [facility] Comment on above: Performed By: #### D DAVIDSON, MG, PHOS, CMP, LIPID, URIC #### [facility] [address] [address] [address] Sarmad Patino IG # 0.04 10e3/ul Critically high 0.00-0.03 [facility] Comment on above: Performed By: #### D DAVIDSON, MG, PHOS, CMP, LIPID, URIC #### [facility] [address] [place] [address] Dr. Sarmad Patino IG % 0.5 % Normal 0.0-0.5 [facility] Comment on above: Performed By: #### D DAVIDSON, MG, PHOS, CMP, LIPID, URIC #### [facility] [address] [place] [address] Dr. Sarmad Patino LYMPH # 1.3 103/ul Normal 1.2-3.8 [facility] Comment on above: Performed By: #### D DAVIDSON, MG, PHOS, CMP, LIPID, URIC #### [facility] [address] [place] [address] Dr. Sarmad Patino Lymphocytes/100 WBC (Bld) 15.4 % Critically low 20.5-60.0 [facility] Comment on above: Performed By: #### D DAVIDSON, MG, PHOS, CMP, LIPID, URIC #### [facility] [address] [place] [address] Dr. Sarmad Patino MANUAL DIFF REQ NO Normal [facility] Comment on above: Performed By: #### D DAVIDSON, MG, PHOS, CMP, LIPID, URIC #### [facility] [address] [place] [address] Dr. Sarmad Patino MCH (RBC) [Entitic mass] 29.1 pg Normal 26.7-34.0 [facility] Comment on above: Performed By: #### D DAVIDSON, MG, PHOS, CMP, LIPID, URIC #### [facility] [address] [place] [address] Dr. Sarmad Patino MCHC (RBC) [Mass/Vol] 33.1 g/dL Normal 29.9-35.2 [facility] Comment on above: Performed By: #### D DAVIDSON, MG, PHOS, CMP, LIPID, URIC #### [facility] [address] [place] [address] Dr. Sarmad Patino MCV (RBC) [Entitic vol] 88.0 fL Normal 81.0-99.0 [facility] Comment on above: Performed By: #### D DAVIDSON, MG, PHOS, CMP, LIPID, URIC #### [facility] [address] [address] [address] Sarmad Patino MONO # 0.9 103/ul Critically high 0.3-0.8 [facility] Comment on above: Performed By: #### D DAVIDSON, MG, PHOS, CMP, LIPID, URIC #### [facility] [address] [place] [address] Dr. Sarmad Patino Monocytes/100 WBC (Bld) 10.2 % Normal 1.7-12.0 [facility] Comment on above: Performed By: #### D DAVIDSON, MG, PHOS, CMP, LIPID, URIC #### [facility] [address] [place] [address] Dr. Sarmad Patino NEUT # 6.1 103/ul Normal 1.4-6.5 [facility] Comment on above: Performed By: #### D DAVIDSON, MG, PHOS, CMP, LIPID, URIC #### [facility] [address] [place] [address] Dr. Sarmad Patino Neutrophils/100 WBC (Bld) 72.4 % Normal 43.0-75.0 [facility] Comment on above: Performed By: #### D DAVIDSON, MG, PHOS, CMP, LIPID, URIC #### [facility] [address] [place] [address] Dr. Sarmad Patino Platelet mean volume (Bld) [Entitic vol] 11.1 fL Normal 9.5-13.5 [facility] Comment on above: Performed By: #### D DAVIDSON, MG, PHOS, CMP, LIPID, URIC #### [facility] [address] [place] [address] Dr. Sarmad Patino PLT 213 103/ul Normal 150-450 [facility] Comment on above: Performed By: #### D DAVIDSON, MG, PHOS, CMP, LIPID, URIC #### [facility] [address] [address] [address] Sarmad Patino RBC 5.40 106/ul Normal 4.20-5.40 [facility] Comment on above: Performed By: #### D DAVIDSON, MG, PHOS, CMP, LIPID, URIC #### [facility] [address] [address] [address] Sarmad Patino WBC 8.4 103/ul Normal 4.0-11.0 [facility] Comment on above: Performed By: #### D DAVIDSON, MG, PHOS, CMP, LIPID, URIC #### [facility] [address] [place] [address] Dr. Sarmad Patino LIPID PROFILEon 10-08-2021 CHOL-HDL RATIO NORM SEE BELOW Normal [facility] Comment on above: Result Comment: 3.3 - 4.4 LOW RISK 4.4 - 7.1 AVERAGE RISK 7.1 - 11.0 MODERATE RISK >11.0 HIGH RISK Performed By: #### D DAVIDSON, MG, PHOS, CMP, LIPID, URIC #### [facility] [address] [place] [address] Dr. Sarmad Patino Cholesterol [Mass/Vol] 155 mg/dL Normal <=200 [facility] Comment on above: Performed By: #### D DAVIDSON, MG, PHOS, CMP, LIPID, URIC #### [facility] [address] [place] [address] Dr. Sarmad Patino Cholesterol in HDL [Mass/Vol] 49 mg/dL Normal 40-60 [facility] Comment on above: Performed By: #### D DAVIDSON, MG, PHOS, CMP, LIPID, URIC #### [facility] [address] [place] [address] Dr. Sarmad Patino Cholesterol in LDL [Mass/Vol] 73.8 mg/dL Normal [facility] Comment on above: Performed By: #### D DAVIDSON, MG, PHOS, CMP, LIPID, URIC #### [facility] [address] [address] [address] Sarmad Patino Cholesterol.total/Cho lesterol in HDL [Mass ratio] 3.2 {ratio} Normal [facility] Comment on above: Performed By: #### D DAVIDSON, MG, PHOS, CMP, LIPID, URIC #### [facility] [address] [address] [address] Sarmad Patino HDL NORMAL > or = 60 mg/dl - LO W CARDIOVASCULAR RISK <40 mg/dl - HIGH CARDIOVASCULAR RISK Normal [facility] Comment on above: Performed By: #### D DAVIDSON, MG, PHOS, CMP, LIPID, URIC #### [facility] [address] [address] [address] Sarmad Patino LDL CALC NORMAL SEE BELOW Normal [facility] Comment on above: Result Comment: <100 mg/dl OPTIMAL 100 - 129 mg/dl NEAR OR ABOVE OPTIMAL 130 - 159 mg/dl BORDERLINE HIGH 160 - 189 mg/dl HIGH >190 mg/dl VERY HIGH Performed By: #### D DAVIDSON, MG, PHOS, CMP, LIPID, URIC #### [facility] [address] [address] [address] Sarmad Patino Triglyceride [Mass/Vol] 161 mg/dL Critically high <=150 [facility] Comment on above: Performed By: #### D DAVIDSON, MG, PHOS, CMP, LIPID, URIC #### [facility] [address] [address] [address] Sarmad Patino VLDL CALC 32.2 mg/dL Normal [facility] Comment on above: Performed By: #### D DAVIDSON, MG, PHOS, CMP, LIPID, URIC #### [facility] [address] [address] [address] Sarmad Patino MAGNESIUMon 10-08-2021 Magnesium [Mass/Vol] 1.6 mg/dL Critically low 1.8-2.4 [facility] Comment on above: Performed By: #### U JUVE, LIPID, MG, CMP, DBIL, PHOS #### [facility] [address] [address] [address] Sarmad Patino PHOSPHORUSon 10-08-2021 Phosphate [Mass/Vol] 3.5 mg/dL Normal 2.6-4.7 [facility] Comment on above: Performed By: #### U JUVE, LIPID, MG, CMP, DBIL, PHOS #### [facility] [address] [place] [address] Dr. Sarmad Patino PROF 14(COMP METB)on 022 Albumin [Mass/Vol] 3.6 g/dL Normal 3.4-5.0 [facility] Comment on above: Performed By: #### D DAVIDSON, MG, PHOS, CMP, LIPID, URIC #### [facility] [address] [place] [address] Dr. Sarmad Patino Albumin/Globulin [Mass ratio] 0.9 {ratio} Normal [facility] Comment on above: Performed By: #### D DAVIDSON, MG, PHOS, CMP, LIPID, URIC #### [facility] [address] [place] [address] Dr. Sarmad Patino ALP [Catalytic activity/Vol] 150 U/L Critically high 46-116 [facility] Comment on above: Performed By: #### D DAVIDSON, MG, PHOS, CMP, LIPID, URIC #### [facility] [address] [place] [address] Dr. Sarmad Patino ALT [Catalytic activity/Vol] 21 U/L Normal 14-59 [facility] Comment on above: Performed By: #### D DAVIDSON, MG, PHOS, CMP, LIPID, URIC #### [facility] [address] [place] [address] Dr. Sarmad Patino Anion gap [Moles/Vol] 14.0 mmol/L Normal [facility] Comment on above: Performed By: #### D DAVIDSON, MG, PHOS, CMP, LIPID, URIC #### [facility] [address] [place] [address] Dr. Sarmad Patino AST [Catalytic activity/Vol] 13 U/L Critically low 15-37 [facility] Comment on above: Performed By: #### D DAVIDSON, MG, PHOS, CMP, LIPID, URIC #### [facility] [address] [place] [address] Dr. Sarmad Patino Bilirubin [Mass/Vol] 0.5 mg/dL Normal 0.2-1.0 [facility] Comment on above: Performed By: #### D DAVIDSON, MG, PHOS, CMP, LIPID, URIC #### [facility] [address] [place] [address] Dr. Sarmad Patino Calcium [Mass/Vol] 9.8 mg/dL Normal 8.5-10.1 [facility] Comment on above: Performed By: #### D DAVIDSON, MG, PHOS, CMP, LIPID, URIC #### [facility] [address] [address] [address] Sarmad Patino Chloride [Moles/Vol] 105 mmol/L Normal 98-107 [facility] Comment on above: Performed By: #### D DAVIDSON, MG, PHOS, CMP, LIPID, URIC #### [facility] [address] [place] [address] Dr. Sarmad Patino CO2 [Moles/Vol] 25.9 mmol/L Normal 21.0-32.0 [facility] Comment on above: Performed By: #### D DAVIDSON, MG, PHOS, CMP, LIPID, URIC #### [facility] [address] [address] [address] Sarmad Patino Creatinine [Mass/Vol] 0.81 mg/dL Normal 0.55-1.02 [facility] Comment on above: Performed By: #### D DAVIDSON, MG, PHOS, CMP, LIPID, URIC #### [facility] [address] [place] [address] Dr. Sarmad Patino EGFR-AF ZIMBABWEAN >60 Normal >=60 [facility] Comment on above: Performed By: #### D DAVIDSON, MG, PHOS, CMP, LIPID, URIC #### [facility] [address] [place] [address] Dr. Sarmad Patino EGFR-NON AF ZIMBABWEAN >60 Normal >=60 [facility] Comment on above: Performed By: #### D DAVIDSON, MG, PHOS, CMP, LIPID, URIC #### [facility] [address] [place] [address] Dr. Sarmad Patino Globulin (S) [Mass/Vol] 3.8 g/dL Normal [facility] Comment on above: Performed By: #### D DAVIDSON, MG, PHOS, CMP, LIPID, URIC #### [facility] [address] [address] [address] Sarmad Patino Glucose [Mass/Vol] 101 mg/dL Normal 74-106 [facility] Comment on above: Performed By: #### D DAVIDSON, MG, PHOS, CMP, LIPID, URIC #### [facility] [address] [address] [address] Sarmad Patino Potassium [Moles/Vol] 3.9 mmol/L Normal 3.5-5.1 [facility] Comment on above: Performed By: #### D DAVIDSON, MG, PHOS, CMP, LIPID, URIC #### [facility] [address] [place] [address] Dr. Sarmad Patino Protein [Mass/Vol] 7.4 g/dL Normal 6.4-8.2 [facility] Comment on above: Performed By: #### D DAVIDSON, MG, PHOS, CMP, LIPID, URIC #### [facility] [address] [address] [address] Sarmad Patino Sodium [Moles/Vol] 141 mmol/L Normal 136-145 [facility] Comment on above: Performed By: #### D DAVIDSON, MG, PHOS, CMP, LIPID, URIC #### [facility] [address] [place] [address] Dr. Sarmad Patino Urea nitrogen [Mass/Vol] 18.0 mg/dL Normal 7.0-18.0 [facility] Comment on above: Performed By: #### D DAVIDSON, MG, PHOS, CMP, LIPID, URIC #### [facility] [address] [place] [address] Dr. Sarmad Patino Urea nitrogen/Creatinine [Mass ratio] 22.2 mg/mg Normal [facility] Comment on above: Performed By: #### D DAVIDSON, MG, PHOS, CMP, LIPID, URIC #### [facility] [address] [place] [address] Dr. Sarmad Patino URIC ACID SERUMon 07-11-2022 Urate [Mass/Vol] 4.7 mg/dL Normal 2.6-6.0 [facility] Comment on above: Performed By: #### D DAVIDSON, MG, PHOS, CMP, LIPID, URIC #### [facility] [address] [place] [address] [address] Sarmad Patino EVEROLIMU, WHOLE BLOODon EVEROLIMUS 8.0 ng/mL Normal 3.0-8.0 [facility] Comment on above: Result Comment: Perf ormed by LC-MS/MS technology. Performed By: #### U JUVE, LIPID, MG, CMP, DBIL, PHOS #### [facility] [address] [place] [address] [address] Sarmad Patino FK506 (TACROLIMUS) WHOLE BLO ODon 09-14-2021 Tacrolimus (FK506), Blood 9.3 ng/mL Normal 2.0-20.0 [facility] Comment on above: Result Comment: Trou gh (immediately following transplant) 15.0 . Trough (steady state, 2 weeks or more after transplant): 3.0 - 8.0 . Performed by LC-MS/MS technology. Performed By: #### U JUVE, LIPID, MG, CMP, DBIL, PHOS #### [facility] [address] [place] [address] [address] Sarmad Patino BK VIRUS PCR QUANTon 022 BKV DNA QUANT PCR PLASMA Negative Normal Negative [facility] Comment on above: Result Comment: No B K DNA detected. . The linear range of the assay is 22 - 100,000,000 IU/mL. Performed By: #### D DAVIDSON, MG, PHOS, CMP, LIPID, URIC #### [facility] [address] [place] [address] [address] Sarmad Patino Log10 BKV DNA Plasma Normal [facility] Comment on above: Performed By: #### D DAVIDSON, MG, PHOS, CMP, LIPID, URIC #### [facility] [address] [place] [address] [address] Sarmad Patino BILIRUBIN CONJUGATED (DIRECT )on 09-10-2021 BILI, CONJUGATED 0.1 mg/dL Normal 0.0-0.2 [facility] Comment on above: Performed By: #### D DAVIDSON, MG, PHOS, CMP, LIPID, URIC #### [facility] [address] [place] [address] Dr. Sarmad Patino CBC AUTO DIFFon 09-10-2021 BASO # 0.0 103/ul Normal 0.0-0.1 [facility] Comment on above: Performed By: #### D DAVIDSON, MG, PHOS, CMP, LIPID, URIC #### [facility] [address] [place] [address] Dr. Sarmad Patino Basophils/100 WBC (Bld) 0.1 % Critically low 0.2-2.0 [facility] Comment on above: Performed By: #### D DAVIDSON, MG, PHOS, CMP, LIPID, URIC #### [facility] [address] [place] [address] Dr. Sarmad Patino EO # 0.2 103/ul Normal 0.0-0.7 [facility] Comment on above: Performed By: #### D DAVIDSON, MG, PHOS, CMP, LIPID, URIC #### [facility] [address] [place] [address] Dr. Sarmad Patino Eosinophils/100 WBC (Bld) 2.3 % Normal 0.9-7.0 [facility] Comment on above: Performed By: #### D DAVIDSON, MG, PHOS, CMP, LIPID, URIC #### [facility] [address] [place] [address] Dr. Sarmad Patino Erythrocyte distribution width (RBC) [Ratio] 13.6 % Normal 11.0-15.0 [facility] Comment on above: Performed By: #### D DAVIDSON, MG, PHOS, CMP, LIPID, URIC #### [facility] [address] [place] [address] Dr. Sarmad Patino Hematocrit (Bld) [Volume fraction] 45.1 % Normal 36.0-48.0 [facility] Comment on above: Performed By: #### D DAVIDSON, MG, PHOS, CMP, LIPID, URIC #### [facility] [address] [place], [place] [id number] Dr. Sarmad Patino Hemoglobin (Bld) [Mass/Vol] 14.7 g/dL Normal 12.0-16.0 [facility] Comment on above: Performed By: #### D DAVIDSON, MG, PHOS, CMP, LIPID, URIC #### [facility] [address] [place] [address] Dr. Sarmad Patino IG # 0.03 10e3/ul Normal 0.00-0.03 [facility] Comment on above: Performed By: #### D DAVIDSON, MG, PHOS, CMP, LIPID, URIC #### [facility] [address] [place] [address] Dr. Sarmad Patino IG % 0.4 % Normal 0.0-0.5 [facility] Comment on above: Performed By: #### D DAVIDSON, MG, PHOS, CMP, LIPID, URIC #### [facility] [address] [place] [address] Dr. Sarmad Patino LYMPH # 1.3 103/ul Normal 1.2-3.8 [facility] Comment on above: Performed By: #### D DAVIDSON, MG, PHOS, CMP, LIPID, URIC #### [facility] [address] [place] [address] Dr. Sarmad Patino Lymphocytes/100 WBC (Bld) 18.9 % Critically low 20.5-60.0 [facility] Comment on above: Performed By: #### D DAVIDSON, MG, PHOS, CMP, LIPID, URIC #### [facility] [address] [place] [address] Dr. Sarmad Patino MANUAL DIFF REQ NO Normal [facility] Comment on above: Performed By: #### D DAVIDSON, MG, PHOS, CMP, LIPID, URIC #### [facility] [address] [place] [address] Dr. Sarmad Patino MCH (RBC) [Entitic mass] 29.0 pg Normal 26.7-34.0 [facility] Comment on above: Performed By: #### D DAVIDSON, MG, PHOS, CMP, LIPID, URIC #### [facility] [address] [place] [address] Dr. Sarmad Patino MCHC (RBC) [Mass/Vol] 32.6 g/dL Normal 29.9-35.2 [facility] Comment on above: Performed By: #### D DAVIDSON, MG, PHOS, CMP, LIPID, URIC #### [facility] [address] [place] [address] Dr. Sarmad Patino MCV (RBC) [Entitic vol] 89.0 fL Normal 81.0-99.0 [facility] Comment on above: Performed By: #### D DAVIDSON, MG, PHOS, CMP, LIPID, URIC #### [facility] [address] [place] [address] Dr. Sarmad Patino MONO # 0.8 103/ul Normal 0.3-0.8 [facility] Comment on above: Performed By: #### D DAVIDSON, MG, PHOS, CMP, LIPID, URIC #### [facility] [address] [place] [address] Dr. Sarmad Patino Monocytes/100 WBC (Bld) 11.9 % Normal 1.7-12.0 [facility] Comment on above: Performed By: #### D DAVIDSON, MG, PHOS, CMP, LIPID, URIC #### [facility] [address] [place] [address] Dr. Sarmad Patino NEUT # 4.6 103/ul Normal 1.4-6.5 [facility] Comment on above: Performed By: #### D DAVIDSON, MG, PHOS, CMP, LIPID, URIC #### [facility] [address] [place] [address] Dr. Sarmad Patino Neutrophils/100 WBC (Bld) 66.4 % Normal 43.0-75.0 [facility] Comment on above: Performed By: #### D DAVIDSON, MG, PHOS, CMP, LIPID, URIC #### [facility] [address] [place] [address] Dr. Sarmad Patino Platelet mean volume (Bld) [Entitic vol] 10.6 fL Normal 9.5-13.5 [facility] Comment on above: Performed By: #### D DAVIDSON, MG, PHOS, CMP, LIPID, URIC #### [facility] [address] [place] [address] [address] Sarmad Patino PLT 233 103/ul Normal 150-450 [facility] Comment on above: Performed By: #### D DAVIDSON, MG, PHOS, CMP, LIPID, URIC #### [facility] [address] [place] [address] [address] Sarmad Patino RBC 5.07 106/ul Normal 4.20-5.40 [facility] Comment on above: Performed By: #### D DAVIDSON, MG, PHOS, CMP, LIPID, URIC #### [facility] [address] [address] [address] Sarmad Patino WBC 6.9 103/ul Normal 4.0-11.0 [facility] Comment on above: Performed By: #### D DAVIDSON, MG, PHOS, CMP, LIPID, URIC #### [facility] [address] [place] [address] [address] Sarmad Patino GLYCOHEMOGLOBIN A1Con 2021 ADA RECOMMENDATION SEE BELOW Normal [facility] Comment on above: Result Comment: ADA RECOMMENDED LIMIT 4.0 - 6.0 ADA THERAPEUTIC TARGET < 7.0 ACTION SUGGESTED > 7.0 Performed By: #### D DAVIDSON, MG, PHOS, CMP, LIPID, URIC #### [facility] [address] [address] [address] Sarmad Patino Glucose [Mass/Vol] 120 mg/dL Normal [facility] Comment on above: Performed By: #### D DAVIDSON, MG, PHOS, CMP, LIPID, URIC #### [facility] [address] [place] [address] [address] Sarmad Patino HbA1c (Bld) [Mass fraction] 5.8 % Normal 4.5-6.2 [facility] Comment on above: Performed By: #### D DAVIDSON, MG, PHOS, CMP, LIPID, URIC #### [facility] [address] [place] [address] [address] Sarmad Patino LIPID PROFILEon 09-10-2021 CHOL-HDL RATIO NORM SEE BELOW Normal [facility] Comment on above: Result Comment: 3.3 - 4.4 LOW RISK 4.4 - 7.1 AVERAGE RISK 7.1 - 11.0 MODERATE RISK >11.0 HIGH RISK Performed By: #### D DAVIDSON, MG, PHOS, CMP, LIPID, URIC #### [facility] [address] [place] [address] Dr. Sarmad Patino Cholesterol [Mass/Vol] 150 mg/dL Normal <=200 [facility] Comment on above: Performed By: #### D DAVIDSON, MG, PHOS, CMP, LIPID, URIC #### [facility] [address] [place] [address] Dr. Sarmad Patino Cholesterol in HDL [Mass/Vol] 47 mg/dL Normal 40-60 [facility] Comment on above: Performed By: #### D DAVIDSON, MG, PHOS, CMP, LIPID, URIC #### [facility] [address] [place] [address] Dr. Sarmad Patino Cholesterol in LDL [Mass/Vol] 78.4 mg/dL Normal [facility] Comment on above: Performed By: #### D DAVIDSON, MG, PHOS, CMP, LIPID, URIC #### [facility] [address] [place] [address] Dr. Sarmad Ptaino Cholesterol.total/Cho lesterol in HDL [Mass ratio] 3.2 {ratio} Normal [facility] Comment on above: Performed By: #### D DAVIDSON, MG, PHOS, CMP, LIPID, URIC #### [facility] [address] [place] [address] Dr. Sarmad Patino HDL NORMAL > or = 60 mg/dl - LO W CARDIOVASCULAR RISK <40 mg/dl - HIGH CARDIOVASCULAR RISK Normal [facility] Comment on above: Performed By: #### D DAVIDSON, MG, PHOS, CMP, LIPID, URIC #### [facility] [address] [place] [address] Dr. Sarmad Patino LDL CALC NORMAL SEE BELOW Normal [facility] Comment on above: Result Comment: <100 mg/dl OPTIMAL 100 - 129 mg/dl NEAR OR ABOVE OPTIMAL 130 - 159 mg/dl BORDERLINE HIGH 160 - 189 mg/dl HIGH >190 mg/dl VERY HIGH Performed By: #### D DAVIDSON, MG, PHOS, CMP, LIPID, URIC #### [facility] [address] [address] [address] Sarmad Patino Triglyceride [Mass/Vol] 123 mg/dL Normal <=150 [facility] Comment on above: Performed By: #### D DAVIDSON, MG, PHOS, CMP, LIPID, URIC #### [facility] [address] [place] [address] [address] Sarmad Patino VLDL CALC 24.6 mg/dL Normal [facility] Comment on above: Performed By: #### D DAVIDSON, MG, PHOS, CMP, LIPID, URIC #### [facility] [address] [address] [address] Sarmad Patino MAGNESIUMon 09-10-2021 Magnesium [Mass/Vol] 1.5 mg/dL Critically low 1.8-2.4 [facility] Comment on above: Performed By: #### D DAVIDSON, MG, PHOS, CMP, LIPID, URIC #### [facility] [address] [place] [address] Dr. Sarmad Patino PHOSPHORUSon 09-10-2021 Phosphate [Mass/Vol] 3.8 mg/dL Normal 2.6-4.7 [facility] Comment on above: Performed By: #### D DAVIDSON, MG, PHOS, CMP, LIPID, URIC #### [facility] [address] [place] [address] Dr. Sarmad Patino PROF 14(COMP METB)on 022 Albumin [Mass/Vol] 3.4 g/dL Normal 3.4-5.0 [facility] Comment on above: Performed By: #### D DAVIDSON, MG, PHOS, CMP, LIPID, URIC #### [facility] [address] [address] [address] Sarmad Patino Albumin/Globulin [Mass ratio] 0.9 {ratio} Normal [facility] Comment on above: Performed By: #### D DAVIDSON, MG, PHOS, CMP, LIPID, URIC #### [facility] [address] [place] [address] Dr. Sarmad Patino ALP [Catalytic activity/Vol] 143 U/L Critically high 46-116 [facility] Comment on above: Performed By: #### D DAVIDSON, MG, PHOS, CMP, LIPID, URIC #### [facility] [address] [place] [address] Dr. Sarmad Patino ALT [Catalytic activity/Vol] 19 U/L Normal 14-59 [facility] Comment on above: Performed By: #### D DAVIDSON, MG, PHOS, CMP, LIPID, URIC #### [facility] [address] [address] [address] Sarmad Patino Anion gap [Moles/Vol] 13.4 mmol/L Normal [facility] Comment on above: Performed By: #### D DAVIDSON, MG, PHOS, CMP, LIPID, URIC #### [facility] [address] [place] [address] Dr. Sarmad Patino AST [Catalytic activity/Vol] 24 U/L Normal 15-37 [facility] Comment on above: Performed By: #### D DAVIDSON, MG, PHOS, CMP, LIPID, URIC #### [facility] [address] [place] [address] Dr. Sarmad Patino Bilirubin [Mass/Vol] 0.4 mg/dL Normal 0.2-1.0 [facility] Comment on above: Performed By: #### D DAVIDSON, MG, PHOS, CMP, LIPID, URIC #### [facility] [address] [place] [address] Dr. Sarmad Patino Calcium [Mass/Vol] 9.3 mg/dL Normal 8.5-10.1 [facility] Comment on above: Performed By: #### D DAVIDSON, MG, PHOS, CMP, LIPID, URIC #### [facility] [address] [address] [address] Sarmad Patino Chloride [Moles/Vol] 106 mmol/L Normal 98-107 [facility] Comment on above: Performed By: #### D DAVIDSON, MG, PHOS, CMP, LIPID, URIC #### [facility] [address] [address] [address] Sarmad Patino CO2 [Moles/Vol] 25.5 mmol/L Normal 21.0-32.0 [facility] Comment on above: Performed By: #### D DAVIDSON, MG, PHOS, CMP, LIPID, URIC #### [facility] [address] [place] [address] Dr. Sarmad Patino Creatinine [Mass/Vol] 0.85 mg/dL Normal 0.55-1.02 [facility] Comment on above: Performed By: #### D DAVIDSON, MG, PHOS, CMP, LIPID, URIC #### [facility] [address] [address] [address] Sarmad Patino EGFR-AF ZIMBABWEAN >60 Normal >=60 [facility] Comment on above: Performed By: #### D DAVIDSON, MG, PHOS, CMP, LIPID, URIC #### [facility] [address] [place] [address] Dr. Sarmad Patino EGFR-NON AF ZIMBABWEAN >60 Normal >=60 [facility] Comment on above: Performed By: #### D DAVIDSON, MG, PHOS, CMP, LIPID, URIC #### [facility] [address] [place] [address] Dr. Sarmad Patino Globulin (S) [Mass/Vol] 3.8 g/dL Normal [facility] Comment on above: Performed By: #### D DAVIDSON, MG, PHOS, CMP, LIPID, URIC #### [facility] [address] [place] [address] Dr. Sarmad Patino Glucose [Mass/Vol] 100 mg/dL Normal 74-106 [facility] Comment on above: Performed By: #### D DAVIDSON, MG, PHOS, CMP, LIPID, URIC #### [facility] [address] [place] [address] Dr. Sarmad Patino Potassium [Moles/Vol] 3.9 mmol/L Normal 3.5-5.1 [facility] Comment on above: Performed By: #### D DAVIDSON, MG, PHOS, CMP, LIPID, URIC #### [facility] [address] [place] [address] Dr. Sarmad Patino Protein [Mass/Vol] 7.2 g/dL Normal 6.4-8.2 [facility] Comment on above: Performed By: #### D DAVIDSON, MG, PHOS, CMP, LIPID, URIC #### [facility] [address] [address] [address] Sarmad Patino Sodium [Moles/Vol] 141 mmol/L Normal 136-145 [facility] Comment on above: Performed By: #### D DAVIDSON, MG, PHOS, CMP, LIPID, URIC #### [facility] [address] [address] [address] Sarmad Patino Urea nitrogen [Mass/Vol] 16.0 mg/dL Normal 7.0-18.0 [facility] Comment on above: Performed By: #### D DAVIDSON, MG, PHOS, CMP, LIPID, URIC #### [facility] [address] [address] [address] Sarmad Patino Urea nitrogen/Creatinine [Mass ratio] 18.8 mg/mg Normal [facility] Comment on above: Performed By: #### D DAVIDSON, MG, PHOS, CMP, LIPID, URIC #### [facility] [address] [address] [address] Sarmad Patino URIC ACID SERUMon 09-10-2021 Urate [Mass/Vol] 4.8 mg/dL Normal 2.6-6.0 [facility] Comment on above: Performed By: #### D DAVIDSON, MG, PHOS, CMP, LIPID, URIC #### [facility] [address] [address] [address] Sarmad Patino Urinalysis - AUTOMATEDon Appearance (U) cloudy [employer] Other Bilirubin Ql (U) Negative [employer] Other Color (U) pale yellow [employer] Other Glucose Ql (U) Negative [employer] Other Hemoglobin Ql (U) moderate [employer] Other Ketones Ql (U) Negative [employer] Other Leukocyte esterase Test strip Ql (U) moderate [employer] Other Nitrite Ql (U) Negative [employer] Other pH (U) 7.0 [pH] [employer] Other Protein Ql (U) Negative [employer] Other Specific gravity (U) [Rel density] 1.010 [employer] Other Urobilinogen (U) [Mass/Vol] 0.2 mg/dL [employer] Other Urinalysis - AUTOMATED [employer] Other Urine Cultureon 08-14-2021 Urine Culture 100,000 [employer] Other Urine Culture <16 Susceptible [employer] Other Urine Culture >16 Resistant [employer] Other Urine Culture <4 Susceptible [employer] Other Urine Culture <2 Susceptible [employer] Other Urine Culture <1 Susceptible [employer] Other Urine Culture <0.5 Susceptible [employer] Other Urine Culture <32 Susceptible [employer] Other Urine Culture <2/38 Susceptible [employer] Other Bacteria identified Cx Nom (U) Reason for Exam Dysuria Urine ORGANISM: Klebsiella pneumoniae (O:KLEPNE) [place] Count 100,000 Aerobic SHYLA Charge (NUC86) ---- [...] RESISTANT TO ALL B-LACTAM DRUGS. PERFORMED BY: [facility] [address] [place] [address] PATHOLOGIST HEAD OF MAINTENANCE LOVELY COLE M.D. Normal [facility] Comment on above: Performed By: #### C UU #### [facility] [address] *URINE CULTUREon 12-31-2017 Bacteria identified in Urine by Culture Clinical Report: (D) Specimen: URINE Collected: 12/31/2017 13:40 Status: Final Last Updated: 01/04/2018 12:38 ISO (Final) Diphtheroids >100,000 Cfu/Ml 2 [employer] ISO (Final) Aerococcus urinae 50,000 - 100,000 Cfu/mL Result changed by [facility] on 01/04/2018 12:38. The previous result was: ISO (Prelim) Normal [facility] Comment on above: Performed By: #### 4 1000, [id number], 69803, 48130, [id number], [id number] ####[facility] [place] [address], [facility] CBC W/DIFFon 12-25-2017 ABS BASOPHILS 0.0 10*3/uL Normal 0.0-0.2 [facility] Comment on above: Performed By: #### 5 0103 ####[facility] [facility].[address] ABS IMM GRANS 0.0 10*3/uL Normal 0.0-0.2 [facility] Comment on above: Performed By: #### 5 0103 ####[facility] ABS NEUTROPHILS 5.0 10*3/uL Normal 1.6-7.6 [facility] Comment on above: Performed By: #### 5 0103 ####[facility] Basophils Auto #/vol (Bld) 0.1 % Normal 0.0-1.0 [facility] Comment on above: Performed By: #### 5 3 ####[facility] Eosinophils Auto #/vol (Bld) 0.1 10*3/uL Normal 0.0-0.5 [facility] Comment on above: Performed By: #### 5 0103 ####[facility] Eosinophils/100 WBC Auto (Bld) 1.6 % Normal 0.0-6.0 [facility] Comment on above: Performed By: #### 5 3 ####[facility] Erythrocyte distribution width Auto Ratio (RBC) 14.6 % Normal 11.5-15.0 [facility] Comment on above: Performed By: #### 5 3 ####[facility] Hematocrit Auto Volume Fraction (Bld) 44.9 % Normal 36.0-45.0 [facility] Comment on above: Performed By: #### 5 0103 ####[facility] Hemoglobin mass conc (Bld) 14.9 g/dL Normal 12.0-15.0 [facility] Comment on above: Performed By: #### 5 3 ####[facility] IMMATURE GRANS 0.4 % Normal 0.0-1.0 [facility] Comment on above: Performed By: #### 5 3 ####[place] [id number] Lymphocytes Auto #/vol (Bld) 1.0 10*3/uL Low 1.2-4.0 [facility] Comment on above: Performed By: #### 5 3 ####[facility] Lymphocytes/100 WBC Auto (Bld) 14.9 % Low 20.0-45.0 [facility] Comment on above: Performed By: #### 5 0103 ####[address] MCH Auto Entitic mass (RBC) 28.8 pg Normal 27.0-33.0 [facility] Comment on above: Performed By: #### 5 0103 ####[facility] MCHC Auto mass conc (RBC) 33.2 g/dL Normal 32.0-35.0 [facility] Comment on above: Performed By: #### 5 3 ####[facility] MCV Auto Entitic volume (RBC) 86.7 fL Normal 82.0-98.0 [facility] Comment on above: Performed By: #### 102 ####[facility] [facility].[address] Monocytes Auto #/vol (Bld) 0.7 10*3/uL Normal 0.1-1.0 [facility] Comment on above: Performed By: #### 102 ####[facility] MONOS 10.6 % Normal 5.0-12.0 [facility] Comment on above: Performed By: #### 102 ####[facility] Neutrophils/100 WBC Auto (Bld) 72.4 % High 40.0-72.0 [facility] Comment on above: Performed By: #### 102 ####[facility] Nucleated RBC/100 WBC Ratio (Bld) 0 % Normal 0-0 [facility] Comment on above: Performed By: #### 102 ####[facility] PLAT CNT 203 10*3/uL Normal 150-400 The [facility] Comment on above: Performed By: #### 5 102 ####[facility] RBC Auto #/vol (Bld) 5.18 10*6/uL High 3.80-5.00 Th e [facility] Comment on above: Performed By: #### 5 102 ####[facility] WBC Auto #/vol (Bld) 6.90 10*3/uL Normal 4.00-10.60 Th e [facility] Comment on above: Performed By: #### 102 ####[facility] [place] [address], [facility] COMP METABOLIC PANELon 12-25 Albumin mass conc 4.3 g/dL Normal 3.5-5.7 The [facility] Comment on above: Performed By: #### 4 1000, 07746, 73335, 20323, 65058, 37305 ####[facility] [place] [address], [facility] ALKALINE PHOSPH 118 IU/L High 34-104 The [facility] Comment on above: Performed By: #### 4 1000, 55251, 90104, 76906, 17173, 75798 ####[facility] [place] [address], [facility] ALT enzyme act/vol 11 U/L Normal 7-52 The [facility] Comment on above: Performed By: #### 4 1000, 64470, 76777, 80848, 78868, 97630 ####[facility] AST enzyme act/vol 17 U/L Normal 13-39 The [facility] Comment on above: Performed By: #### 4 1000, 39132, 76547, 13888, 45329, 69765 ####[facility] [place] [address], [facility] Bilirubin mass conc 0.4 mg/dL Normal 0.3-1.0 The [facility] Comment on above: Performed By: #### 4 1000, 41925, 03997, 58910, 18013, 89343 ####[facility] [place] [address], [facility] Calcium mass conc 9.8 mg/dL Normal 8.6-10.3 The [facility] Comment on above: Performed By: #### 4 1000, 44539, 72750, 50478, 66649, 25695 ####[facility] [place] [address], [place] Chloride molar conc 104 mmol/L Normal 98-107 [facility] Comment on above: Performed By: #### 4 1000, 96212, 82886, 04507, 69312, 88004 ####[facility] [place] [address], [place] CO2 molar conc 27 mmol/L Normal 21-31 [facility] Comment on above: Performed By: #### 4 1000, 12990, 57927, 36117, 10360, 80772 ####[facility] [place] [address], [facility] Creatinine mass conc 0.76 mg/dL Normal 0.60-1.20 [facility] Comment on above: Performed By: #### 4 1000, 01108, 78520, 11229, 20210, 19806 ####[facility] [place] [address], [place] GFR/1.73 sq M predicted among blacks MDRD vol rate/area (S/P/Bld) mL/min/{1.73_m2} Normal >60 The [facility] Comment on above: Performed By: #### 4 1000, 07125, 82292, 53399, 17803, 99038 ####[facility] [place] [address], [place] GFR/1.73 sq M predicted among non-blacks MDRD vol rate/area (S/P/Bld) mL/min/{1.73_m2} Normal >60 The [facility] Comment on above: Performed By: #### 4 1000, 53824, 08087, 95001, 46926, 52432 ####[facility] [place] [address], [place] Glucose mass conc 94 mg/dL Normal 70-100 [facility] Comment on above: Performed By: #### 4 1000, 21260, 56218, 97927, 89768, 49476 ####[facility] Potassium molar conc 3.9 mmol/L Normal 3.5-5.1 The [facility] Comment on above: Performed By: #### 4 1000, 43282, 88140, 25608, 65741, 74824 ####[facility] Protein mass conc 7.2 g/dL Normal 6.0-8.3 The [facility] Comment on above: Performed By: #### 4 1000, 05497, 85862, 43202, 61723, 16145 ####[facility] Sodium molar conc 140 mmol/L Normal 136-145 The [facility] Comment on above: Performed By: #### 4 1000, 61032, 65171, 56436, 69033, 67330 ####[facility] Urea nitrogen mass conc 15 mg/dL Normal 7-25 The [facility] Comment on above: Performed By: #### 4 1000, 55852, 76312, 36892, 90387, 69380 ####[facility] DIRECT BILIon 12-25-2017 Bilirubin.direct mass conc 0.1 mg/dL Normal 0.0-0.2 The [facility] Comment on above: Performed By: #### 4 1000, 18738, 22769, 98026, 70963, 54599 ####[facility] [place] [address], [facility] EVEROLIMUS 29999fl 8 EVEROLIMUS 4.7 ng/mL Normal The [facility] Comment on above: Result Comment: Ther [...] the transplantcenter.Test developed and characteristics determined by [employer]. See Compliance Statement B: [facility]/CSPerformed by [employer],[address] [place] [address] 15037 vvg.[facility], Leonid Antonio MD - Lab. Director LIPID PROFILEon 12-25-2017 Cholesterol in HDL mass conc 51 mg/dL Normal 23-92 [facility] Comment on above: Result Comment: Slig ht variation in normal range could be due to gender and/or age.HDL CHOLESTEROL REFERENCE RANGE:20 years and older Cardiovascular Risk> or =60 mg/dL Prgyttkwt24 TO 59 mg/dL Low Risk<40 mg/dL High Risk Performed By: #### 4 5506, 03263, 21152, 33830, 58618, 33888 ####[facility] Cholesterol in LDL mass conc 58 mg/dL Normal 0-130 The [facility] Comment on above: Result Comment: LDL IS A CALCULATIONLDL IS ONLY VALID IF THE TRIG IS LESS THAN 400. Performed By: #### 4 5506, 42151, 68257, 77710, 11493, 78067 ####[facility] [place] [address], [facility] Cholesterol mass conc 122 mg/dL Normal 120-200 The [facility] Comment on above: Result Comment: CHOL ESTEROL REFERENCE RANGE:20 YEARS AND OLDER CARDIOVASCULAR RISKLess than 200 mg/dl Low Myjg949 to 239 mg/dl Borderline Bfen109 mg/dl and greater High Risk Performed By: #### 4 5506, 21529, 85395, 29300, 15098, 18241 ####[facility] [place] [address], [facility] Cholesterol.total/Cho lesterol in HDL mass ratio 2.4 {ratio} Normal .0-4.5 [facility] Comment on above: Performed By: #### 4 5506, 24269, 87733, 45018, 32932, 24264 ####[facility] NON-HDL CHOLESTEROL 71 mg/dL Normal The [facility] Comment on above: Performed By: #### 4 5506, 62003, 70324, 24889, 40738, 45728 ####[facility] [place] [address], [facility] Triglyceride mass conc 65 mg/dL Normal 40-149 The [facility] Comment on above: Result Comment: TRIG LYCERIDE REFERENCE RANGE:20 YEARS AND OLDER CARDIOVASCULAR RISKLESS THAN 150 mg/dl LOW [id number] TO 199 mg/dl BORDERLINE APSH269 mg/dl AND GREATER HIGH RISK Performed By: #### 4 5506, 61970, 31817, 63338, 69720, 95060 ####[facility] [place] [address], [facility] VLDL CHOL 13 mg/dL Normal 0-40 The [facility] Comment on above: Performed By: #### 4 5506, 97708, 69252, 66246, 50164, 94144 ####[facility]3000 [facility].[address] MAGNESIUM BLOODon 12-25-2017 Magnesium mass conc 1.8 mg/dL Low 1.9-2.7 The [facility] Comment on above: Performed By: #### 4 1000, 48391, 47611, 23998, 44345, 01021 ####[facility] [place] [address], [facility] PHOSPHORUS BLOODon 8 Phosphate mass conc 3.4 mg/dL Normal 2.5-5.0 The [facility] Comment on above: Performed By: #### 4 5506, 83717, 28892, 18020, 56785, 21879 ####[facility]3000 [facility].[address] TACROLIMUSon 12-25-2017 Tacrolimus mass conc (Bld) 6.4 ng/mL Normal 5.0-20.0 The [facility] Comment on above: Result Comment: The [employer] Tacrolimus assay is a delayed one-step immunoassayfor the quantitative determination of tacrolimus in human whole bloodusing the chemiluminescent microparticle immunoassay (CMIA) technologywith flexible assay protocols, referred to as Chemiflex. Performed By: #### 4 1000, 80754, 35194, 46246, 46060, 82601 ####[place] [address] [facility].[address] URIC ACID BLOODon 12-25-2017 Urate mass conc 4.7 mg/dL Normal 2.3-6.6 The [facility] Comment on above: Performed By: #### 4 5506, 57748, 64761, 93994, 06724, 66669 ####[facility]3000 [facility].[address] CBC W/DIFFon 10-30-2017 ABS BASOPHILS 0.0 10*3/uL Normal 0.0-0.2 The [facility] Comment on above: Performed By: #### 4 3458, 87643 ####[facility]3000 [facility].[address] ABS IMM GRANS 0.0 10*3/uL Normal 0.0-0.2 The [facility] Comment on above: Performed By: #### 4 6728, 33940 ####[facility]3000 [facility].[address] ABS NEUTROPHILS 4.9 10*3/uL Normal 1.6-7.6 The [facility] Comment on above: Performed By: #### 4 6775, 79985 ####[facility]3000 [facility].[address] Basophils Auto #/vol (Bld) 0.1 % Normal 0.0-1.0 The [facility] Comment on above: Performed By: #### 5 2659, 97797 ####[facility]3000 [facility].[address] Eosinophils Auto #/vol (Bld) 0.1 10*3/uL Normal 0.0-0.5 The [facility] Comment on above: Performed By: #### 8 5758, 82002 ####[facility]3000 [facility].[address] Eosinophils/100 WBC Auto (Bld) 1.4 % Normal 0.0-6.0 The [facility] Comment on above: Performed By: #### 2 1433, 08797 ####[facility]3000 [facility].[address] Erythrocyte distribution width Auto Ratio (RBC) 14.6 % Normal 11.5-15.0 The [facility] Comment on above: Performed By: #### 5 4739, 78923 ####[facility]3000 [facility].[address] Hematocrit Auto Volume Fraction (Bld) 46.8 % High 36.0-45.0 The [facility] Comment on above: Performed By: #### 4 6747, 71283 ####[facility]3000 [facility].[address] Hemoglobin mass conc (Bld) 15.1 g/dL High 12.0-15.0 The [facility] Comment on above: Performed By: #### 4 9018, 98922 ####[facility]3000 [facility].[address] IMMATURE GRANS 0.4 % Normal 0.0-1.0 The [facility] Comment on above: Performed By: #### 4 7550, 21937 ####[place] [address] Lymphocytes Auto #/vol (Bld) 1.2 10*3/uL Normal 1.2-4.0 The [facility] Comment on above: Performed By: #### 4 0497, 89839 ####[facility]3000 [facility].[address] Lymphocytes/100 WBC Auto (Bld) 16.6 % Low 20.0-45.0 The [facility] Comment on above: Performed By: #### 4 6267, 37637 ####[facility]3000 [facility].[address] MCH Auto Entitic mass (RBC) 29.0 pg Normal 27.0-33.0 The [facility] Comment on above: Performed By: #### 4 1300, 97349 ####[facility]3000 [facility].[address] MCHC Auto mass conc (RBC) 32.3 g/dL Normal 32.0-35.0 The [facility] Comment on above: Performed By: #### 2 5761, 49906 ####[facility]3000 [facility].[address] MCV Auto Entitic volume (RBC) 89.8 fL Normal 82.0-98.0 The [facility] Comment on above: Performed By: #### 4 6732, 13957 ####[facility] Monocytes Auto #/vol (Bld) 0.8 10*3/uL Normal 0.1-1.0 The [facility] Comment on above: Performed By: #### 4 3896, 74364 ####[facility] [place] [address], [facility] MONOS 11.9 % Normal 5.0-12.0 The [facility] Comment on above: Performed By: #### 4 0047, 24174 ####[facility] Neutrophils/100 WBC Auto (Bld) 69.6 % Normal 40.0-72.0 The [facility] Comment on above: Performed By: #### 4 6147, 57257 ####[facility] Nucleated RBC/100 WBC Ratio (Bld) 0 % Normal 0-0 The [facility] Comment on above: Performed By: #### 4 7847, 48915 ####[facility] [place] [address], [facility] PLAT CNT 200 10*3/uL Normal 150-400 The [facility] Comment on above: Performed By: #### 4 3747, 12551 ####[facility] RBC Auto #/vol (Bld) 5.21 10*6/uL High 3.80-5.00 Th e [facility] Comment on above: Performed By: #### 8 9647, 43038 ####[facility] WBC Auto #/vol (Bld) 7.04 10*3/uL Normal 4.00-10.60 Th e [facility] Comment on above: Performed By: #### 4 5547, 57728 ####[facility] COMP METABOLIC PANELon 10-30 Albumin mass conc 4.1 g/dL Normal 3.5-5.7 The [facility] Comment on above: Performed By: #### 4 3647, 67488 ####[facility] ALKALINE PHOSPH 114 IU/L High 34-104 [facility] Comment on above: Performed By: #### 4 8947, 99688 ####[place] [address] ALT enzyme act/vol 16 U/L Normal 7-52 The [facility] Comment on above: Performed By: #### 4 3547, 68329 ####[facility] AST enzyme act/vol 18 U/L Normal 13-39 The [facility] Comment on above: Performed By: #### 4 6447, 29898 ####[facility] Bilirubin mass conc 0.4 mg/dL Normal 0.3-1.0 [facility] Comment on above: Performed By: #### 4 4847, 13243 ####[facility] [place] [address], [facility] Calcium mass conc 9.7 mg/dL Normal 8.6-10.3 The [facility] Comment on above: Performed By: #### 4 0113, 04823 ####[facility] [place] [address], [place] Chloride molar conc 105 mmol/L Normal 98-107 [facility] Comment on above: Performed By: #### 4 2910, 27899 ####[facility] [place] [address], [place] CO2 molar conc 28 mmol/L Normal 21-31 The [facility] Comment on above: Performed By: #### 4 7595, 93061 ####[facility] [place] [address], [place] Creatinine mass conc 0.82 mg/dL Normal 0.60-1.20 The [facility] Comment on above: Performed By: #### 4 9594, 41416 ####[facility] [place] [address], [place] GFR/1.73 sq M predicted among blacks MDRD vol rate/area (S/P/Bld) mL/min/{1.73_m2} Normal >60 The [facility] Comment on above: Performed By: #### 4 7773, 45596 ####[facility] [facility] [place] [address], [facility] GFR/1.73 sq M predicted among non-blacks MDRD vol rate/area (S/P/Bld) mL/min/{1.73_m2} Normal >60 The [facility] Comment on above: Performed By: #### 4 9647, 00400 ####[facility] [place] [address], [place] Glucose mass conc 90 mg/dL Normal 70-100 [facility] Comment on above: Performed By: #### 4 3304, 25154 ####[facility] [place] [address], [place] Potassium molar conc 4.1 mmol/L Normal 3.5-5.1 The [facility] Comment on above: Performed By: #### 4 6447, 44379 ####[facility]3000 [facility].[address] Protein mass conc 6.9 g/dL Normal 6.0-8.3 The [facility] Comment on above: Performed By: #### 4 6447, 80138 ####[facility]3000 [facility].[address] Sodium molar conc 138 mmol/L Normal 136-145 The [facility] Comment on above: Performed By: #### 4 6447, 62555 ####[facility]3000 [facility].[address] Urea nitrogen mass conc 16 mg/dL Normal 7-25 The [facility] Comment on above: Performed By: #### 4 6447, 14177 ####[facility] DIRECT BILIon 10-30-2017 Bilirubin.direct mass conc 0.0 mg/dL Normal 0.0-0.2 The [facility] Comment on above: Performed By: #### 4 5506, 53554, 67072, 91444, 13198, 21175 ####[facility]3000 [facility].[address] EVEROLIMUS 18754em 8 EVEROLIMUS 6.0 ng/mL Normal The [facility] Comment on above: Result Comment: Ther [...] the transplantcenter.Test developed and characteristics determined by [employer]. See Compliance Statement B: [facility]/CSPerformed by [employer],[address] [place] [address] [id number] yqr.[facility], Leonid Antonio MD - Lab. Director LIPID PROFILEon 10-30-2017 Cholesterol in HDL mass conc 50 mg/dL Normal 23-92 The [facility] Comment on above: Result Comment: Slig ht variation in normal range could be due to gender and/or age.HDL CHOLESTEROL REFERENCE RANGE:20 years and older Cardiovascular Risk> or =60 mg/dL Nfldjitah35 TO 59 mg/dL Low Risk<40 mg/dL High Risk Performed By: #### 4 5506, 32998, 32127, 20755, 30394, 24692 ####[facility] Cholesterol in LDL mass conc 85 mg/dL Normal 0-130 The [facility] Comment on above: Result Comment: LDL IS A CALCULATIONLDL IS ONLY VALID IF THE TRIG IS LESS THAN 400. Performed By: #### 4 5506, 66613, 04470, 49225, 45769, 06563 ####[facility] [facility] [place] [address], [facility] Cholesterol mass conc 152 mg/dL Normal 120-200 The [facility] Comment on above: Result Comment: CHOL ESTEROL REFERENCE RANGE:20 YEARS AND OLDER CARDIOVASCULAR RISKLess than 200 mg/dl Low Tjlh136 to 239 mg/dl Borderline Thrq263 mg/dl and greater High Risk Performed By: #### 4 5506, 26290, 62753, 03291, 71692, 61141 ####[facility] [place] [address], [facility] Cholesterol.total/Cho lesterol in HDL mass ratio 3.0 {ratio} Normal .0-4.5 The [facility] Comment on above: Performed By: #### 4 5506, 69459, 13587, 02023, 51827, 17648 ####[facility] NON-HDL CHOLESTEROL 102 mg/dL Normal The [facility] Comment on above: Performed By: #### 4 5506, 85916, 70558, 67559, 78184, 03086 ####[facility]3000 [facility].[address] Triglyceride mass conc 87 mg/dL Normal 40-149 The [facility] Comment on above: Result Comment: TRIG LYCERIDE REFERENCE RANGE:20 YEARS AND OLDER CARDIOVASCULAR RISKLESS THAN 150 mg/dl LOW GORX481 TO 199 mg/dl BORDERLINE NPPJ352 mg/dl AND GREATER HIGH RISK Performed By: #### 4 5506, 33406, 85074, 50894, 05408, 01305 ####[facility]3000 [facility].[address] VLDL CHOL 17 mg/dL Normal 0-40 The [facility] Comment on above: Performed By: #### 4 5506, 58534, 37236, 97446, 81355, 15488 ####[facility] MAGNESIUM BLOODon 10-30-2017 Magnesium mass conc 1.9 mg/dL Normal 1.9-2.7 The [facility] Comment on above: Performed By: #### 4 5506, 74274, 90189, 97408, 70639, 96203 ####[facility] [place] [address], [facility] PHOSPHORUS BLOODon 8 Phosphate mass conc 3.7 mg/dL Normal 2.5-5.0 The [facility] Comment on above: Performed By: #### 4 5506, 42874, 93242, 74986, 33926, 86685 ####[address] TACROLIMUSon 10-30-2017 Tacrolimus mass conc (Bld) 7.1 ng/mL Normal 5.0-20.0 The [facility] Comment on above: Result Comment: The [employer] Tacrolimus assay is a delayed one-step immunoassayfor the quantitative determination of tacrolimus in human whole bloodusing the chemiluminescent microparticle immunoassay (CMIA) technologywith flexible assay protocols, referred to as Chemiflex. Performed By: #### 9 9914 ####[address] URIC ACID BLOODon 10-30-2017 Urate mass conc 4.6 mg/dL Normal 2.3-6.6 The [facility] Comment on above: Performed By: #### 4 6447, 76268 ####[place] [id number] CBC W/DIFFon 10-23-2017 ABS BASOPHILS 0.0 10*3/uL Normal 0.0-0.2 The [facility] Comment on above: Performed By: #### 4 9847, 01445 ####[address] ABS IMM GRANS 0.1 10*3/uL Normal 0.0-0.2 The [facility] Comment on above: Performed By: #### 4 6447, 31694 ####[address] ABS NEUTROPHILS 5.8 10*3/uL Normal 1.6-7.6 The [facility] Comment on above: Performed By: #### 4 6447, 22818 ####[address] [place] [address], [place] Basophils Auto #/vol (Bld) 0.2 % Normal 0.0-1.0 The [facility] Comment on above: Performed By: #### 4 9799, 42477 ####[facility]3000 [facility].[address] Eosinophils Auto #/vol (Bld) 0.1 10*3/uL Normal 0.0-0.5 The [facility] Comment on above: Performed By: #### 4 6829, 85481 ####[facility]3000 [facility].[address] Eosinophils/100 WBC Auto (Bld) 0.7 % Normal 0.0-6.0 The [facility] Comment on above: Performed By: #### 6 0910, 79781 ####[address] Erythrocyte distribution width Auto Ratio (RBC) 14.6 % Normal 11.5-15.0 The [facility] Comment on above: Performed By: #### 1 3888, 57535 ####[place] [address] [facility].[address] Hematocrit Auto Volume Fraction (Bld) 44.2 % Normal 36.0-45.0 The [facility] Comment on above: Performed By: #### 9 3298, 17857 ####[facility]3000 [facility].[address] Hemoglobin mass conc (Bld) 14.2 g/dL Normal 12.0-15.0 The [facility] Comment on above: Performed By: #### 0 7385, 32435 ####[place] [address] [facility].[address] IMMATURE GRANS 1.4 % High 0.0-1.0 The [facility] Comment on above: Performed By: #### 4 7099, 47163 ####[facility]3000 [facility].[address] Lymphocytes Auto #/vol (Bld) 2.1 10*3/uL Normal 1.2-4.0 The [facility] Comment on above: Performed By: #### 4 6447, 65005 ####[facility]3000 [facility].[address] Lymphocytes/100 WBC Auto (Bld) 22.5 % Normal 20.0-45.0 The [facility] Comment on above: Performed By: #### [id number], [id number] ####[address] MCH Auto Entitic mass (RBC) 28.5 pg Normal 27.0-33.0 [facility] Comment on above: Performed By: #### [id number], [id number] ####[address] MCHC Auto mass conc (RBC) 32.1 g/dL Normal 32.0-35.0 [facility] Comment on above: Performed By: #### [id number], [id number] ####[place] [id number] [facility].[address] MCV Auto Entitic volume (RBC) 88.8 fL Normal 82.0-98.0 [facility] Comment on above: Performed By: #### 4 [id number], [id number] ####[facility] [facility].[address] Monocytes Auto #/vol (Bld) 1.1 10*3/uL High 0.1-1.0 [facility] Comment on above: Performed By: #### 4 6447, 75731 ####[address] MONOS 12.0 % Normal 5.0-12.0 [facility] Comment on above: Performed By: #### 4 6447, 90104 ####[facility] Neutrophils/100 WBC Auto (Bld) 63.2 % Normal 40.0-72.0 [facility] Comment on above: Performed By: #### 4 6447, 35887 ####[facility] Nucleated RBC/100 WBC Ratio (Bld) 0 % Normal 0-0 [facility] Comment on above: Performed By: #### 4 6447, 23939 ####[address] PLAT CNT 241 10*3/uL Normal 150-400 The [facility] Comment on above: Performed By: #### 4 6447, 85586 ####[place] [address] [facility].[address] RBC Auto #/vol (Bld) 4.98 10*6/uL Normal 3.80-5.00 [facility] Comment on above: Performed By: #### 4 6447, 85760 ####[facility] [facility].[address] WBC Auto #/vol (Bld) 9.14 10*3/uL Normal 4.00-10.60 [facility] Comment on above: Performed By: #### 4 6447, 86450 ####[facility]3000 [facility].[address] COMP METABOLIC PANELon 10-23 Albumin mass conc 3.8 g/dL Normal 3.5-5.7 [facility] Comment on above: Performed By: #### 4 6447, 04371 ####[place] [address] [place] [address], [place] ALKALINE PHOSPH 96 IU/L Normal 34-104 The [facility] Comment on above: Performed By: #### 8 6814, 62392 ####[facility] [place] [address], [place] ALT enzyme act/vol 15 U/L Normal 7-52 [facility] Comment on above: Performed By: #### 9 2551, 25375 ####[facility] [place] [address], [place] AST enzyme act/vol 13 U/L Normal 13-39 [facility] Comment on above: Performed By: #### 7 4160, 09041 ####[facility] [place] [address], [place] Bilirubin mass conc 0.4 mg/dL Normal 0.3-1.0 [facility] Comment on above: Performed By: #### 2 1851, 31369 ####[facility] [place] [address], [place] Calcium mass conc 9.2 mg/dL Normal 8.6-10.3 The [facility] Comment on above: Performed By: #### 0 0874, 50823 ####[facility] [facility] [place] [address], [place] Chloride molar conc 102 mmol/L Normal 98-107 [facility] Comment on above: Performed By: #### 3 4940, 44342 ####[facility] [place] [address], [place] CO2 molar conc 29 mmol/L Normal 21-31 The [facility] Comment on above: Performed By: #### 3 7214, 91018 ####[facility] [place] [address], [place] Creatinine mass conc 0.80 mg/dL Normal 0.60-1.20 [facility] Comment on above: Performed By: #### 7 8114, 47031 ####[facility] [place] [address], [facility] GFR/1.73 sq M predicted among blacks MDRD vol rate/area (S/P/Bld) mL/min/{1.73_m2} Normal >60 [facility] Comment on above: Performed By: #### 4 2173, 64942 ####[facility] [place] [address], [facility] GFR/1.73 sq M predicted among non-blacks MDRD vol rate/area (S/P/Bld) mL/min/{1.73_m2} Normal >60 [facility] Comment on above: Performed By: #### 5 4251, 06041 ####[place] [address] [facility] [place] [address], [facility] Glucose mass conc 85 mg/dL Normal 70-100 The [facility] Comment on above: Performed By: #### 4 6909, 04618 ####[place] [address] [facility].[address] Potassium molar conc 3.3 mmol/L Low 3.5-5.1 [facility] Comment on above: Performed By: #### 2 4879, 48253 ####[facility] [facility] [place] [address], [facility] Protein mass conc 6.5 g/dL Normal 6.0-8.3 The [facility] Comment on above: Performed By: #### 8 2960, 12111 ####[place] [address] [facility] [address], [facility] Sodium molar conc 139 mmol/L Normal 136-145 The [facility] Comment on above: Performed By: #### 0 4968, 01405 ####[facility] [place] [address], [facility] Urea nitrogen mass conc 18 mg/dL Normal 7-25 [facility] Comment on above: Performed By: #### 4 6447, 44792 ####[facility] [place] [address], [facility] DIRECT BILIon 10-23-2017 Bilirubin.direct mass conc 0.1 mg/dL Normal 0.0-0.2 [facility] Comment on above: Performed By: #### 4 6447, 81764 ####[facility] [facility] [address], [facility] EVEROLIMUS [id number] 8 EVEROLIMUS 4.0 ng/mL Normal [facility] Comment on above: Result Comment: Ther [...] the transplantcenter.Test developed and characteristics determined by [facility]. See Compliance Statement B: [facility]/CSPerformed by [employer],[address] [place] [id number] ltw.[facility], Leonid Antonio MD - Lab. Director LIPID PROFILEon 10-23-2017 Cholesterol in HDL mass conc 53 mg/dL Normal 23-92 [facility] Comment on above: Result Comment: Slig ht variation in normal range could be due to gender and/or age.HDL CHOLESTEROL REFERENCE RANGE:20 years and older Cardiovascular Risk> or =60 mg/dL [id number] TO 59 mg/dL Low Risk<40 mg/dL High Risk Performed By: #### 4 0179, 99543 ####[facility] [facility] [address], [facility] Cholesterol in LDL mass conc 68 mg/dL Normal 0-130 [facility] Comment on above: Result Comment: LDL IS A CALCULATIONLDL IS ONLY VALID IF THE TRIG IS LESS THAN 400. Performed By: #### 4 8120, 51607 ####[facility] [facility] [address], [facility] Cholesterol mass conc 135 mg/dL Normal 120-200 [facility] Comment on above: Result Comment: CHOL ESTEROL REFERENCE RANGE:20 YEARS AND OLDER CARDIOVASCULAR RISKLess than 200 mg/dl Low Rolm914 to 239 mg/dl Borderline Qubi300 mg/dl and greater High Risk Performed By: #### 4 7839, 19210 ####[facility] [facility] [address], [facility] Cholesterol.total/Cho lesterol in HDL mass ratio 2.5 {ratio} Normal .0-4.5 [facility] Comment on above: Performed By: #### 4 3498, 46841 ####[facility] [facility] [address], [facility] NON-HDL CHOLESTEROL 82 mg/dL Normal [facility] Comment on above: Performed By: #### 4 0349, 08487 ####[facility] [facility] [address], [facility] Triglyceride mass conc 72 mg/dL Normal 40-149 [facility] Comment on above: Result Comment: TRIG LYCERIDE REFERENCE RANGE:20 YEARS AND OLDER CARDIOVASCULAR RISKLESS THAN 150 mg/dl LOW [id number] TO 199 mg/dl BORDERLINE WITG213 mg/dl AND GREATER HIGH RISK Performed By: #### 4 6447, 91069 ####[facility]3000 [facility].[address] VLDL CHOL 14 mg/dL Normal 0-40 [facility] Comment on above: Performed By: #### 4 6447, 91649 ####[facility]3000 [facility].[address] MAGNESIUM BLOODon 10-23-2017 Magnesium mass conc 1.8 mg/dL Low 1.9-2.7 [facility] Comment on above: Performed By: #### 4 6447, 02368 ####[facility] [place] [address].[address] PHOSPHORUS BLOODon 8 Phosphate mass conc 3.7 mg/dL Normal 2.5-5.0 [facility] Comment on above: Performed By: #### 4 3047, 81615 ####[facility]3000 [facility].[address] TACROLIMUSon 10-23-2017 Tacrolimus mass conc (Bld) 2.6 ng/mL Low 5.0-20.0 [facility] Comment on above: Result Comment: The [employer] Tacrolimus assay is a delayed one-step immunoassayfor the quantitative determination of tacrolimus in human whole bloodusing the chemiluminescent microparticle immunoassay (CMIA) technologywith flexible assay protocols, referred to as Chemiflex. Performed By: #### 4 7047, 40539 ####[facility] [facility].[address] URIC ACID BLOODon 10-23-2017 Urate mass conc 4.3 mg/dL Normal 2.3-6.6 The [facility] Comment on above: Performed By: #### 4 6447, 91392 ####[address] CBC W/DIFFon 09-25-2017 ABS BASOPHILS 0.0 10*3/uL Normal 0.0-0.2 The [facility] Comment on above: Performed By: #### 4 1000, 02967, 21814, 69968, 68090, 55765 ####[facility] ABS IMM GRANS 0.0 10*3/uL Normal 0.0-0.2 [facility] Comment on above: Performed By: #### 4 1000, 55827, 81125, 14403, 91487, 12251 ####[facility] ABS NEUTROPHILS 4.4 10*3/uL Normal 1.6-7.6 The [facility] Comment on above: Performed By: #### 4 1000, 70483, 92477, 92581, 37774, 75629 ####[facility] Basophils Auto #/vol (Bld) 0.2 % Normal 0.0-1.0 [facility] Comment on above: Performed By: #### 4 1000, 52197, 80845, 58432, 39343, 51828 ####[facility] Eosinophils Auto #/vol (Bld) 0.1 10*3/uL Normal 0.0-0.5 [facility] Comment on above: Performed By: #### 4 1000, 25370, 82025, 41551, 66733, 37850 ####[facility] Eosinophils/100 WBC Auto (Bld) 2.2 % Normal 0.0-6.0 [facility] Comment on above: Performed By: #### 4 1000, 28579, 83658, 20742, 84966, 68233 ####[facility] [place], [place] [address]E.[address] Erythrocyte distribution width Auto Ratio (RBC) 14.0 % Normal 11.5-15.0 [facility] Comment on above: Performed By: #### 4 1000, 69279, 79413, 74380, 59718, 26624 ####[place] [address] [facility].[address] Hematocrit Auto Volume Fraction (Bld) 44.8 % Normal 36.0-45.0 [facility] Comment on above: Performed By: #### 4 1000, 65672, 62615, 56023, 13836, 54298 ####[place] [address] [address] Hemoglobin mass conc (Bld) 14.5 g/dL Normal 12.0-15.0 [facility] Comment on above: Performed By: #### 4 1000, 33297, 72803, 99610, 59710, 06286 ####[place] [address] IMMATURE GRANS 0.3 % Normal 0.0-1.0 [facility] Comment on above: Performed By: #### 4 1000, 22170, 77210, 74756, 64825, 69569 ####[place] [address] [facility].[address] Lymphocytes Auto #/vol (Bld) 1.1 10*3/uL Low 1.2-4.0 [facility] Comment on above: Performed By: #### 4 1000, 94593, 23170, 45937, 94179, 27048 ####[facility] Lymphocytes/100 WBC Auto (Bld) 17.0 % Low 20.0-45.0 [facility] Comment on above: Performed By: #### 4 1000, 70164, 76704, 59409, 77003, 35979 ####[facility] MCH Auto Entitic mass (RBC) 28.6 pg Normal 27.0-33.0 [facility] Comment on above: Performed By: #### 4 1000, 00098, 89181, 36414, 21328, 97993 ####[facility] MCHC Auto mass conc (RBC) 32.4 g/dL Normal 32.0-35.0 [facility] Comment on above: Performed By: #### 4 1000, 43329, 23809, 52127, 45170, 15994 ####[facility] MCV Auto Entitic volume (RBC) 88.4 fL Normal 82.0-98.0 [facility] Comment on above: Performed By: #### 4 1000, 77210, 85832, 64959, 57530, 82811 ####[facility]3000 [facility].[address] Monocytes Auto #/vol (Bld) 0.7 10*3/uL Normal 0.1-1.0 [facility] Comment on above: Performed By: #### 4 1000, 15872, 00827, 49150, 21175, 32818 ####[facility] MONOS 11.5 % Normal 5.0-12.0 [facility] Comment on above: Performed By: #### 4 1000, 51303, 84282, 09066, 72235, 74757 ####[facility] Neutrophils/100 WBC Auto (Bld) 68.8 % Normal 40.0-72.0 [facility] Comment on above: Performed By: #### 4 1000, 31392, 95418, 05476, 28272, 52196 ####[facility] [facility].[address] Nucleated RBC/100 WBC Ratio (Bld) 0 % Normal 0-0 [facility] Comment on above: Performed By: #### 4 1000, 74235, 63849, 12057, 37015, 17828 ####[facility] PLAT CNT 212 10*3/uL Normal 150-400 The [facility] Comment on above: Performed By: #### 4 1000, 11421, 30350, 77360, 91397, 32517 ####[facility]3000 [facility].[address] RBC Auto #/vol (Bld) 5.07 10*6/uL High 3.80-5.00 Th [facility] Comment on above: Performed By: #### 4 1000, 58408, 71818, 35854, 76554, 19007 ####[facility]3000 [facility].[address] WBC Auto #/vol (Bld) 6.34 10*3/uL Normal 4.00-10.60 Th [facility] Comment on above: Performed By: #### 4 1000, 75706, 98299, 25952, 35607, 63442 ####[facility] [facility].[address] COMP METABOLIC PANELon 09-25 Albumin mass conc 4.0 g/dL Normal 3.5-5.7 [facility] Comment on above: Performed By: #### 4 6447, 53728 ####[facility] ALKALINE PHOSPH 112 IU/L High 34-104 The [facility] Comment on above: Performed By: #### 4 1149, 86776 ####[facility] [place] [address], [place] ALT enzyme act/vol 11 U/L Normal 7-52 The [facility] Comment on above: Performed By: #### 4 6647, 03645 ####[facility] [place] [address], [place] AST enzyme act/vol 17 U/L Normal 13-39 The [facility] Comment on above: Performed By: #### 4 0783, 17845 ####[facility] [place] [address], [place] Bilirubin mass conc 0.5 mg/dL Normal 0.3-1.0 [facility] Comment on above: Performed By: #### 7 7984, 31861 ####[facility] [place] [address], [facility] Calcium mass conc 9.6 mg/dL Normal 8.6-10.3 [facility] Comment on above: Performed By: #### 2 7281, 75050 ####[facility] [facility] [place] [address], [place] Chloride molar conc 104 mmol/L Normal 98-107 [facility] Comment on above: Performed By: #### 2 9644, 72089 ####[facility] [place] [address], [place] CO2 molar conc 28 mmol/L Normal 21-31 The [facility] Comment on above: Performed By: #### 5 2972, 00855 ####[facility] [place] [address], [place] Creatinine mass conc 0.83 mg/dL Normal 0.60-1.20 [facility] Comment on above: Performed By: #### 0 0426, 06923 ####[facility] [place] [address], [place] GFR/1.73 sq M predicted among blacks MDRD vol rate/area (S/P/Bld) mL/min/{1.73_m2} Normal >60 [facility] Comment on above: Performed By: #### 6 6026, 09996 ####[facility] [place] [address], [place] GFR/1.73 sq M predicted among non-blacks MDRD vol rate/area (S/P/Bld) mL/min/{1.73_m2} Normal >60 [facility] Comment on above: Performed By: #### 9 2718, 83255 ####[facility] [place] [address], [facility] Glucose mass conc 91 mg/dL Normal 70-100 The [facility] Comment on above: Performed By: #### 7 6607, 23032 ####[facility] [place] [address], [facility] Potassium molar conc 3.9 mmol/L Normal 3.5-5.1 [facility] Comment on above: Performed By: #### 6 7681, 87277 ####[facility] [place] [address], [facility] Protein mass conc 7.0 g/dL Normal 6.0-8.3 The [facility] Comment on above: Performed By: #### 8 8039, 90516 ####[facility] [place] [address], [place] Sodium molar conc 140 mmol/L Normal 136-145 The [facility] Comment on above: Performed By: #### 2 2653, 32958 ####[facility] [place] [address], [place] Urea nitrogen mass conc 15 mg/dL Normal 7-25 [facility] Comment on above: Performed By: #### 4 6447, 35697 ####[facility] DIRECT BILIon 09-25-2017 Bilirubin.direct mass conc 0.1 mg/dL Normal 0.0-0.2 [facility] Comment on above: Performed By: #### 4 6447, 05874 ####[facility] EVEROLIMUS [id number] 8 EVEROLIMUS 5.1 ng/mL Normal The [facility] Comment on above: Result Comment: Ther [...] the transplantcenter.Test developed and characteristics determined by [employer]. See Compliance Statement B: [employer]/CSPerformed by [employer],[address] [place] [address] eli.[facility], Leonid Antonio MD - Lab. Director LIPID PROFILEon 09-25-2017 Cholesterol in HDL mass conc 48 mg/dL Normal 23-92 The [facility] Comment on above: Result Comment: Slig ht variation in normal range could be due to gender and/or age.HDL CHOLESTEROL REFERENCE RANGE:20 years and older Cardiovascular Risk> or =60 mg/dL Aauayvmhx52 TO 59 mg/dL Low Risk<40 mg/dL High Risk Performed By: #### 4 6391, 88505 ####[facility] [place] [address], [place] Cholesterol in LDL mass conc 69 mg/dL Normal 0-130 The [facility] Comment on above: Result Comment: LDL IS A CALCULATIONLDL IS ONLY VALID IF THE TRIG IS LESS THAN 400. Performed By: #### 4 5085, 71104 ####[facility] [place] [address], [facility] Cholesterol mass conc 138 mg/dL Normal 120-200 The [facility] Comment on above: Result Comment: CHOL ESTEROL REFERENCE RANGE:20 YEARS AND OLDER CARDIOVASCULAR RISKLess than 200 mg/dl Low Lyds308 to 239 mg/dl Borderline Jnku132 mg/dl and greater High Risk Performed By: #### 7 7167, 09531 ####[facility] [place] [address], [facility] Cholesterol.total/Cho lesterol in HDL mass ratio 2.9 {ratio} Normal .0-4.5 [facility] Comment on above: Performed By: #### 3 7865, 79956 ####[facility] [place] [address], [facility] NON-HDL CHOLESTEROL 90 mg/dL Normal [facility] Comment on above: Performed By: #### 4 5219, 54605 ####[facility] [place] [address], [place] Triglyceride mass conc 103 mg/dL Normal 40-149 The [facility] Comment on above: Result Comment: TRIG LYCERIDE REFERENCE RANGE:20 YEARS AND OLDER CARDIOVASCULAR RISKLESS THAN 150 mg/dl LOW [id number] TO 199 mg/dl BORDERLINE AODM684 mg/dl AND GREATER HIGH RISK Performed By: #### 1 7894, 92009 ####[facility]3000 [facility].[address] VLDL CHOL 21 mg/dL Normal 0-40 [facility] Comment on above: Performed By: #### 4 6647, 18790 ####[address] MAGNESIUM BLOODon 09-25-2017 Magnesium mass conc 1.8 mg/dL Low 1.9-2.7 [facility] Comment on above: Performed By: #### 4 6447, 68483 ####[address] [place] [address], [facility] PHOSPHORUS BLOODon 8 Phosphate mass conc 3.4 mg/dL Normal 2.5-5.0 [facility] Comment on above: Performed By: #### 4 6447, 11018 ####[address] TACROLIMUSon 09-25-2017 Tacrolimus mass conc (Bld) 3.6 ng/mL Low 5.0-20.0 [facility] Comment on above: Result Comment: The [employer] Tacrolimus assay is a delayed one-step immunoassayfor the quantitative determination of tacrolimus in human whole bloodusing the chemiluminescent microparticle immunoassay (CMIA) technologywith flexible assay protocols, referred to as Chemiflex. Performed By: #### 4 9047, 97704 ####[place] [id number] [facility].[address] URIC ACID BLOODon 09-25-2017 Urate mass conc 4.7 mg/dL Normal 2.3-6.6 The [facility] Comment on above: Performed By: #### 4 0247, 27572 ####[address] BK VIRUS QUANTITATION PCR BL OODon 08-26-2017 BKV QUANT PCR Not detected Normal The [facility] Comment on above: Result Comment: Meth od: BK virus was measured by quantitative polymerase chain reactionusing a TaqMan probe targeting the polyomavirus BK [employer]-1 gene.The lower limit of quantitation of the assay is 500 copies of BK genomeper milliliter of plasma or urine, and any detectable BK DNA below thatlevel is reported as: Detected, <500 copies/ml. Serial BK virusmeasurement can be used to monitor disease activity. (Reference:Kelsie simpson. J CLIN MICRO 2004; 42:2997-6208).This test was developed and its performance characteristics determinedby the [facility] Molecular Diagnostics Laboratory. It has not been approvedby the [place] Food and Drug Administration. However, such approval is notrequired for clinical implementation, and test results have been shownto be clinically useful. This laboratory is CAP accredited and CLIAcertified to perform high complexity testing. Performed By: #### 4 1000, 59274, 63987, 61788, 12601, 60012 ####[place] [address] LOG 10 COPIES Not detected Normal The [facility] Comment on above: Performed By: #### 4 1000, 66646, 14930, 62904, 78381, 53131 ####[place] [address] [facility].[address] CBC W/DIFFon 08-26-2017 ABS BASOPHILS 0.0 10*3/uL Normal 0.0-0.2 The [facility] Comment on above: Performed By: #### 4 1000, 88347, 67659, 04966, 49245, 20315 ####[facility] [facility].[address] ABS IMM GRANS 0.0 10*3/uL Normal 0.0-0.2 [facility] Comment on above: Performed By: #### 4 1000, 02665, 84852, 22551, 88028, 76199 ####[place] [address] ABS NEUTROPHILS 4.5 10*3/uL Normal 1.6-7.6 The [facility] Comment on above: Performed By: #### 4 1000, 31069, 20706, 27931, 88202, 71678 ####[facility] [place] [address], [facility] Basophils Auto #/vol (Bld) 0.2 % Normal 0.0-1.0 [facility] Comment on above: Performed By: #### 4 1000, 66134, 70233, 39046, 84941, 16602 ####[facility] [place] [address], [facility] Eosinophils Auto #/vol (Bld) 0.2 10*3/uL Normal 0.0-0.5 [facility] Comment on above: Performed By: #### 4 1000, 84987, 80510, 75102, 11648, 16277 ####[facility] Eosinophils/100 WBC Auto (Bld) 2.4 % Normal 0.0-6.0 [facility] Comment on above: Performed By: #### 4 1000, [id number], 32477, 00417, 16629, 49670 ####[facility] Erythrocyte distribution width Auto Ratio (RBC) 14.0 % Normal 11.5-15.0 [facility] Comment on above: Performed By: #### 4 1000, 95454, 91345, 07795, 50893, 67936 ####[facility] [address] Hematocrit Auto Volume Fraction (Bld) 44.9 % Normal 36.0-45.0 The [facility] Comment on above: Performed By: #### 4 1000, 20719, 76652, 41607, 91039, 41250 ####[facility] Hemoglobin mass conc (Bld) 14.9 g/dL Normal 12.0-15.0 The [facility] Comment on above: Performed By: #### 4 1000, 09512, 58008, 94387, 47225, 47002 ####[facility] IMMATURE GRANS 0.5 % Normal 0.0-1.0 The [facility] Comment on above: Performed By: #### 4 1000, 27163, 32031, 74388, 10751, 56889 ####[facility] Lymphocytes Auto #/vol (Bld) 1.0 10*3/uL Low 1.2-4.0 The [facility] Comment on above: Performed By: #### 4 1000, 74985, 46549, 72535, 87266, 85715 ####[facility] Lymphocytes/100 WBC Auto (Bld) 15.8 % Low 20.0-45.0 The [facility] Comment on above: Performed By: #### 4 1000, 98157, 91752, 55946, 09784, 82112 ####[facility] [facility] MCH Auto Entitic mass (RBC) 29.1 pg Normal 27.0-33.0 The [facility] Comment on above: Performed By: #### 4 1000, 14379, 21015, 99956, 27094, 93196 ####[facility] [facility] MCHC Auto mass conc (RBC) 33.2 g/dL Normal 32.0-35.0 The [facility] Comment on above: Performed By: #### 4 1000, 12286, 32156, 30100, 18207, 37172 ####[facility] MCV Auto Entitic volume (RBC) 87.7 fL Normal 82.0-98.0 [facility] Comment on above: Performed By: #### 4 1000, 52298, 87903, 51518, 83439, 97787 ####[place] [id number] Monocytes Auto #/vol (Bld) 0.7 10*3/uL Normal 0.1-1.0 The [facility] Comment on above: Performed By: #### 4 1000, 55621, 76573, 86974, 81825, 28194 ####[place] [address] [facility].[address] MONOS 10.6 % Normal 5.0-12.0 The [facility] Comment on above: Performed By: #### 4 1000, 31728, 13172, 68582, 26515, 35104 ####[place] [address] [facility] Neutrophils/100 WBC Auto (Bld) 70.5 % Normal 40.0-72.0 The [facility] Comment on above: Performed By: #### 4 1000, 40615, 30605, 15289, 26267, 54805 ####[place] [address] [facility] Nucleated RBC/100 WBC Ratio (Bld) 0 % Normal 0-0 The [facility] Comment on above: Performed By: #### 4 1000, 21671, 95907, 92644, 25828, 22100 ####[place] [address] [facility] PLAT CNT 231 10*3/uL Normal 150-400 The [facility] Comment on above: Performed By: #### 4 1000, 26067, 41299, 92525, 92806, 52102 ####[address] RBC Auto #/vol (Bld) 5.12 10*6/uL High 3.80-5.00 Th e [facility] Comment on above: Performed By: #### 4 1000, 11618, 85971, 44767, 17957, 12699 ####[facility] [facility] WBC Auto #/vol (Bld) 6.32 10*3/uL Normal 4.00-10.60 Th e [facility] Comment on above: Performed By: #### 4 1000, 56907, 63428, 38624, 93468, 43322 ####[facility] [facility] COMP METABOLIC PANELon 08-26 Albumin mass conc 4.3 g/dL Normal 3.5-5.7 The [facility] Comment on above: Performed By: #### 4 1000, 71470, 71706, 78592, 14091, 26283 ####[facility] [facility] ALKALINE PHOSPH 125 IU/L High 34-104 The [facility] Comment on above: Performed By: #### 4 1000, 97591, 67813, 49959, 95764, 06298 ####[facility] ALT enzyme act/vol 17 U/L Normal 7-52 The [facility] Comment on above: Performed By: #### 4 1000, 93242, 88005, 12333, 01054, 99220 ####[facility] AST enzyme act/vol 23 U/L Normal 13-39 The [facility] Comment on above: Performed By: #### 4 1000, 06455, 37772, 93838, 43634, 41268 ####[id number] [place] [address], [facility] Bilirubin mass conc 0.4 mg/dL Normal 0.3-1.0 [facility] Comment on above: Performed By: #### 4 1000, 33126, 00312, 06066, 55110, 93169 ####[facility] [place] [address], [facility] Calcium mass conc 9.6 mg/dL Normal 8.6-10.3 [facility] Comment on above: Performed By: #### 4 1000, 78478, 78955, 45014, 60545, 11374 ####[facility] [place] [address], [facility] Chloride molar conc 104 mmol/L Normal 98-107 The [facility] Comment on above: Performed By: #### 4 1000, 31901, 21572, 79893, 48620, 50544 ####[facility] [place] [address], [facility] CO2 molar conc 27 mmol/L Normal 21-31 The [facility] Comment on above: Performed By: #### 4 1000, 42244, 14531, 03808, 69104, 83634 ####[facility] [place] [address], [facility] Creatinine mass conc 0.77 mg/dL Normal 0.60-1.20 The [facility] Comment on above: Performed By: #### 4 1000, 76918, 47890, 64953, 81409, 27698 ####[facility] [place] [address], [facility] GFR/1.73 sq M predicted among blacks MDRD vol rate/area (S/P/Bld) mL/min/{1.73_m2} Normal >60 The [facility] Comment on above: Performed By: #### 4 1000, 17283, 29723, 66739, 36682, 29198 ####[facility] [place] [address], [facility] GFR/1.73 sq M predicted among non-blacks MDRD vol rate/area (S/P/Bld) mL/min/{1.73_m2} Normal >60 The [facility] Comment on above: Performed By: #### 4 1000, 58708, 15854, 46716, 88675, 55903 ####[facility] [place] [address], [facility] Glucose mass conc 95 mg/dL Normal 70-100 The [facility] Comment on above: Performed By: #### 4 1000, 00679, 71651, 33009, 28258, 12586 ####[facility] [place] [address], [facility] Potassium molar conc 4.1 mmol/L Normal 3.5-5.1 The [facility] Comment on above: Performed By: #### 4 1000, 20942, 18024, 08758, 85007, 80065 ####[facility] [place] [address], [facility] Protein mass conc 7.3 g/dL Normal 6.0-8.3 The [facility] Comment on above: Performed By: #### 4 1000, 06778, 01496, 68735, 32852, 06234 ####[facility] [place] [address], [place] Sodium molar conc 139 mmol/L Normal 136-145 The [facility] Comment on above: Performed By: #### 4 1000, 33380, 30922, 64275, 94687, 91308 ####[facility] [place] [address], [place] Urea nitrogen mass conc 12 mg/dL Normal 7-25 The [facility] Comment on above: Performed By: #### 4 1000, 21885, 87136, 51801, 07838, 36952 ####[facility] DIRECT BILIon 08-26-2017 Bilirubin.direct mass conc 0.1 mg/dL Normal 0.0-0.2 [facility] Comment on above: Performed By: #### 4 1000, 04582, 37045, 60405, 89282, 22922 ####[facility] [facility] EVEROLIMUS [address]op 8 EVEROLIMUS 5.6 ng/mL Normal [facility] Comment on above: [...] the transplantcenter.Test developed and characteristics determined by [employer]. See Compliance Statement B: [facility]/CSPerformed by [employer],[address] [place] [address] pqh.[facility], Leonid Antonio MD - Lab. Director HEMOGLOBIN A1Con 08-26-2017 Glucose mass conc 114 mg/dL Normal 70-126 [facility] Comment on above: Performed By: #### 4 1000, 62897, 62162, 11334, 79522, 34996 ####[facility] [place] [address], [facility] Hemoglobin A1c/Hemoglobin.total mass fraction (Bld) 5.6 % Normal 4.0-6.0 The [facility] Comment on above: Performed By: #### 4 1000, 56802, 86763, 66788, 19406, 24848 ####[facility] [place] [address], [facility] LIPID PROFILEon 08-26-2017 Cholesterol in HDL mass conc 49 mg/dL Normal 23-92 [facility] Comment on above: Result Comment: Slig ht variation in normal range could be due to gender and/or age.HDL CHOLESTEROL REFERENCE RANGE:20 years and older Cardiovascular Risk> or =60 mg/dL [id number] TO 59 mg/dL Low Risk<40 mg/dL High Risk Performed By: #### 4 1000, 52956, 34433, 66178, 49838, 00858 ####[facility] [place] [address], [facility] Cholesterol in LDL mass conc 76 mg/dL Normal 0-130 [facility] Comment on above: Result Comment: LDL IS A CALCULATIONLDL IS ONLY VALID IF THE TRIG IS LESS THAN 400. Performed By: #### 4 1000, 73632, 98481, 67942, 94328, 01098 ####[facility] [place] [address], [facility] Cholesterol mass conc 152 mg/dL Normal 120-200 The [facility] Comment on above: Result Comment: CHOL ESTEROL REFERENCE RANGE:20 YEARS AND OLDER CARDIOVASCULAR RISKLess than 200 mg/dl Low Kyyh594 to 239 mg/dl Borderline Ugal675 mg/dl and greater High Risk Performed By: #### 4 1000, 43536, 43577, 87914, 72157, 58374 ####[facility] [place] [address], [place] Cholesterol.total/Cho lesterol in HDL mass ratio 3.1 {ratio} Normal .0-4.5 The [facility] Comment on above: Performed By: #### 4 1000, 32251, 26849, 12720, 20366, 89507 ####[facility] NON-HDL CHOLESTEROL 103 mg/dL Normal [facility] Comment on above: Performed By: #### 4 1000, 98534, 82998, 72719, 36665, 09874 ####[facility] Triglyceride mass conc 133 mg/dL Normal 40-149 The [facility] Comment on above: Result Comment: TRIG LYCERIDE REFERENCE RANGE:20 YEARS AND OLDER CARDIOVASCULAR RISKLESS THAN 150 mg/dl LOW [id number] TO 199 mg/dl BORDERLINE BEWJ291 mg/dl AND GREATER HIGH RISK Performed By: #### 4 1000, 83482, 94359, 21102, 70755, 07723 ####[facility] VLDL CHOL 27 mg/dL Normal 0-40 The [facility] Comment on above: Performed By: #### 4 1000, 70132, 42482, 34603, 41941, 35905 ####[facility] MAGNESIUM BLOODon 08-26-2017 Magnesium mass conc 1.9 mg/dL Normal 1.9-2.7 The [facility] Comment on above: Performed By: #### 4 1000, 83443, 84694, 26650, 70956, 56330 ####[facility] PHOSPHORUS BLOODon 8 Phosphate mass conc 3.4 mg/dL Normal 2.5-5.0 The [facility] Comment on above: Performed By: #### 4 1000, 55362, 37474, 16026, 51596, 34905 ####[facility]3000 [facility].[address] TACROLIMUSon 08-26-2017 Tacrolimus mass conc (Bld) 4.3 ng/mL Low 5.0-20.0 The [facility] Comment on above: Result Comment: The [employer] Tacrolimus assay is a delayed one-step immunoassayfor the quantitative determination of tacrolimus in human whole bloodusing the chemiluminescent microparticle immunoassay (CMIA) technologywith flexible assay protocols, referred to as Chemiflex. Performed By: #### 4 1000, 49728, 51120, 44086, 85735, 68943 ####[facility] [facility].[address] URIC ACID BLOODon 08-26-2017 Urate mass conc 4.6 mg/dL Normal 2.3-6.6 The [facility] Comment on above: Performed By: #### 4 1000, 90244, 96788, 81912, 88746, 69762 ####[facility] [facility].[address] CBC W/DIFFon 07-23-2017 ABS BASOPHILS 0.0 10*3/uL Normal 0.0-0.2 The [facility] Comment on above: Performed By: #### 4 1000, 37747, 64493, 57276, 37641, 74814 ####[facility] [facility].[address] ABS IMM GRANS 0.0 10*3/uL Normal 0.0-0.2 The [facility] Comment on above: Performed By: #### 4 1000, 71453, 33112, 79782, 67154, 07520 ####[facility] [facility].[address] ABS NEUTROPHILS 4.4 10*3/uL Normal 1.6-7.6 The [facility] Comment on above: Performed By: #### 4 1000, 78948, 76131, 08682, 80624, 38862 ####[facility] [place] [address], [facility] Basophils Auto #/vol (Bld) 0.2 % Normal 0.0-1.0 The [facility] Comment on above: Performed By: #### 4 1000, 62202, 75764, 46907, 46099, 24011 ####[facility] Eosinophils Auto #/vol (Bld) 0.1 10*3/uL Normal 0.0-0.5 The [facility] Comment on above: Performed By: #### 4 1000, 96934, 11537, 15040, 05962, 66324 ####[facility] [place] [address], [facility] Eosinophils/100 WBC Auto (Bld) 2.1 % Normal 0.0-6.0 The [facility] Comment on above: Performed By: #### 4 1000, 91759, 39489, 49734, 21838, 58743 ####[facility] Erythrocyte distribution width Auto Ratio (RBC) 13.7 % Normal 11.5-15.0 The [facility] Comment on above: Performed By: #### 4 1000, 46951, 98598, 08473, 60921, 40306 ####[facility] Hematocrit Auto Volume Fraction (Bld) 44.4 % Normal 36.0-45.0 The [facility] Comment on above: Performed By: #### 4 1000, 73001, 76219, 19345, 10219, 68110 ####[facility] Hemoglobin mass conc (Bld) 14.7 g/dL Normal 12.0-15.0 The [facility] Comment on above: Performed By: #### 4 1000, 40632, 97178, 67212, 42002, 34880 ####[facility]3000 [facility].[address] IMMATURE GRANS 0.5 % Normal 0.0-1.0 The [facility] Comment on above: Performed By: #### 4 1000, 15310, 66479, 16058, 30315, 63402 ####[facility] [facility].[address] Lymphocytes Auto #/vol (Bld) 1.0 10*3/uL Low 1.2-4.0 The [facility] Comment on above: Performed By: #### 4 1000, 41267, 11786, 54497, 10617, 24185 ####[facility] [facility].[address] Lymphocytes/100 WBC Auto (Bld) 15.5 % Low 20.0-45.0 The [facility] Comment on above: Performed By: #### 4 1000, 78668, 67865, 23154, 10539, 96364 ####[facility] [facility].[address] MCH Auto Entitic mass (RBC) 28.9 pg Normal 27.0-33.0 The [facility] Comment on above: Performed By: #### 4 1000, 85260, 20480, 33431, 58657, 85685 ####[facility] [facility].[address] MCHC Auto mass conc (RBC) 33.1 g/dL Normal 32.0-35.0 The [facility] Comment on above: Performed By: #### 4 1000, 41689, 78987, 69004, 55621, 65950 ####[facility]3000 [facility].[address] MCV Auto Entitic volume (RBC) 87.4 fL Normal 82.0-98.0 The [facility] Comment on above: Performed By: #### 4 1000, 27801, 96125, 12896, 06780, 51955 ####[facility] Monocytes Auto #/vol (Bld) 0.8 10*3/uL Normal 0.1-1.0 The [facility] Comment on above: Performed By: #### 4 1000, 68602, 76222, 70167, 10983, 44686 ####[facility] MONOS 12.3 % High 5.0-12.0 The [facility] Comment on above: Performed By: #### 4 1000, 70022, 14883, 39866, 99081, 21989 ####[facility] Neutrophils/100 WBC Auto (Bld) 69.4 % Normal 40.0-72.0 The [facility] Comment on above: Performed By: #### 4 1000, 19249, 66565, 79477, 89393, 71572 ####[facility] Nucleated RBC/100 WBC Ratio (Bld) 0 % Normal 0-0 The [facility] Comment on above: Performed By: #### 4 1000, 24627, 41343, 98260, 52461, 78442 ####[facility] PLAT CNT 218 10*3/uL Normal 150-400 The [facility] Comment on above: Performed By: #### 4 1000, 18312, 26450, 94503, 52155, 58721 ####[facility] [place] [address], [place] RBC Auto #/vol (Bld) 5.08 10*6/uL High 3.80-5.00 Th e [facility] Comment on above: Performed By: #### 4 1000, 96894, 40195, 16601, 61421, 69658 ####[facility] WBC Auto #/vol (Bld) 6.3 10*3/uL Normal 4.0-10.6 The [facility] Comment on above: Performed By: #### 4 1000, 92726, 70808, 28054, 49308, 26809 ####[facility] COMP METABOLIC PANELon 07-23 Albumin mass conc 4.2 g/dL Normal 3.5-5.7 The [facility] Comment on above: Performed By: #### 4 1000, 12880, 19600, 12806, 62482, 76115 ####[facility] ALKALINE PHOSPH 113 IU/L High 34-104 The [facility] Comment on above: Performed By: #### 4 1000, 24866, 76960, 32069, 52990, 74458 ####[facility] ALT enzyme act/vol 23 U/L Normal 7-52 The [facility] Comment on above: Performed By: #### 4 1000, 91962, 77067, 58856, 56904, 97144 ####[facility] [place] [address], [facility] AST enzyme act/vol 25 U/L Normal 13-39 The [facility] Comment on above: Performed By: #### 4 1000, 14346, 97331, 98750, 91711, 17807 ####[facility] [place] [address], [facility] Bilirubin mass conc 0.6 mg/dL Normal 0.3-1.0 The [facility] Comment on above: Performed By: #### 4 1000, 66775, 62993, 22916, 09984, 66742 ####[facility] [place] [address], [facility] Calcium mass conc 9.6 mg/dL Normal 8.6-10.3 [facility] Comment on above: Performed By: #### 4 1000, 46716, 88849, 88812, 60105, 80802 ####[facility] [place] [address], [facility] Chloride molar conc 104 mmol/L Normal 98-107 The [facility] Comment on above: Performed By: #### 4 1000, 16272, 54076, 02615, 38545, 02782 ####[facility] [place] [address], [facility] CO2 molar conc 25 mmol/L Normal 21-31 The [facility] Comment on above: Performed By: #### 4 1000, 61451, 15344, 68487, 10409, 95178 ####[facility] [place] [address], [facility] Creatinine mass conc 0.80 mg/dL Normal 0.60-1.20 The [facility] Comment on above: Performed By: #### 4 1000, 50463, 72570, 97764, 06868, 81681 ####[facility] [place] [address], [facility] GFR/1.73 sq M predicted among blacks MDRD vol rate/area (S/P/Bld) mL/min/{1.73_m2} Normal >60 The [facility] Comment on above: Performed By: #### 4 1000, 44409, 31532, 37512, 86232, 59434 ####[facility] [place] [address], [facility] GFR/1.73 sq M predicted among non-blacks MDRD vol rate/area (S/P/Bld) mL/min/{1.73_m2} Normal >60 The [facility] Comment on above: Performed By: #### 4 1000, 68578, 05050, 68197, 26917, 17137 ####[facility] [place] [address], [facility] Glucose mass conc 91 mg/dL Normal 70-100 The [facility] Comment on above: Performed By: #### 4 1000, 58211, 62103, 02165, 41604, 04831 ####[facility] [place] [address], [facility] Potassium molar conc 4.0 mmol/L Normal 3.5-5.1 The [facility] Comment on above: Performed By: #### 4 1000, 14039, 78350, 30979, 91101, 38171 ####[facility] [place] [address], [facility] Protein mass conc 6.8 g/dL Normal 6.0-8.3 The [facility] Comment on above: Performed By: #### 4 1000, 83636, 38860, 70642, 76383, 00280 ####[facility] [place] [address], [facility] Sodium molar conc 140 mmol/L Normal 136-145 The [facility] Comment on above: Performed By: #### 4 1000, 76916, 49831, 54026, 02940, 34371 ####[facility] [place] [address], [facility] Urea nitrogen mass conc 16 mg/dL Normal 7-25 The [facility] Comment on above: Performed By: #### 4 1000, 76769, 01024, 91639, 23776, 66000 ####[facility] [place] [address], [facility] DIRECT BILIon 07-23-2017 Bilirubin.direct mass conc 0.2 mg/dL Normal 0.0-0.2 [facility] Comment on above: Performed By: #### 4 1000, 17437, 53860, 16029, 09768, 65454 ####[facility] [address], [facility] EVEROLIMUS [id number] 8 EVEROLIMUS 5.3 ng/mL Normal The [facility] Comment on above: Result Comment: Ther [...] the transplantcenter.Test developed and characteristics determined by [employer]. See Compliance Statement B: [facility]/CSPerformed by [employer],[address] [place] [address] mxi.[facility], Leonid Antonio MD - Lab. Director LIPID PROFILEon 07-23-2017 Cholesterol in HDL mass conc 45 mg/dL Normal 23-92 The [facility] Comment on above: Result Comment: Slig ht variation in normal range could be due to gender and/or age.HDL CHOLESTEROL REFERENCE RANGE:20 years and older Cardiovascular Risk> or =60 mg/dL [id number] TO 59 mg/dL Low Risk<40 mg/dL High Risk Performed By: #### 4 1000, 15011, 79608, 55901, 08966, 61350 ####[facility] [place] [address], [facility] Cholesterol in LDL mass conc 79 mg/dL Normal 0-130 The [facility] Comment on above: Result Comment: LDL IS A CALCULATIONLDL IS ONLY VALID IF THE TRIG IS LESS THAN 400. Performed By: #### 4 1000, 64511, 29290, 26564, 79485, 87007 ####[facility] [place] [address], [facility] Cholesterol mass conc 141 mg/dL Normal 120-200 [facility] Comment on above: Result Comment: CHOL ESTEROL REFERENCE RANGE:20 YEARS AND OLDER CARDIOVASCULAR RISKLess than 200 mg/dl Low [id number] to 239 mg/dl Borderline Ctvh506 mg/dl and greater High Risk Performed By: #### 4 1000, 65802, 66230, 97375, 99605, 87858 ####[facility] [place] [address], [facility] Cholesterol.total/Cho lesterol in HDL mass ratio 3.1 {ratio} Normal .0-4.5 [facility] Comment on above: Performed By: #### 4 1000, 08631, 17734, 92024, 32636, 74060 ####[facility] [place] [address], [place] NON-HDL CHOLESTEROL 96 mg/dL Normal [facility] Comment on above: Performed By: #### 4 1000, 21822, 02283, 56332, 82030, 09051 ####[facility] [place] [address], [place] Triglyceride mass conc 83 mg/dL Normal 40-149 [facility] Comment on above: Result Comment: TRIG LYCERIDE REFERENCE RANGE:20 YEARS AND OLDER CARDIOVASCULAR RISKLESS THAN 150 mg/dl LOW TOIS113 TO 199 mg/dl BORDERLINE RHEY260 mg/dl AND GREATER HIGH RISK Performed By: #### 4 1000, 37947, 75567, 21023, 36838, 38105 ####[facility] VLDL CHOL 17 mg/dL Normal 0-40 The [facility] Comment on above: Performed By: #### 4 1000, 47160, 36780, 61396, 14372, 02395 ####[facility] MAGNESIUM BLOODon 07-23-2017 Magnesium mass conc 2.0 mg/dL Normal 1.9-2.7 The [facility] Comment on above: Performed By: #### 4 1000, 39062, 39166, 43321, 33739, 20694 ####[facility] PHOSPHORUS BLOODon 8 Phosphate mass conc 4.0 mg/dL Normal 2.5-5.0 [facility] Comment on above: Performed By: #### 4 1000, 40046, 84871, 98377, 74330, 48801 ####[facility] TACROLIMUSon 07-23-2017 Tacrolimus mass conc (Bld) 4.6 ng/mL Low 5.0-20.0 The [facility] Comment on above: Result Comment: The [employer] Tacrolimus assay is a delayed one-step immunoassayfor the quantitative determination of tacrolimus in human whole bloodusing the chemiluminescent microparticle immunoassay (CMIA) technologywith flexible assay protocols, referred to as Chemiflex. Performed By: #### 4 1000, 60509, 33672, 39651, 24265, 58501 ####[facility] URIC ACID BLOODon 07-23-2017 Urate mass conc 4.7 mg/dL Normal 2.3-6.6 The [facility] Comment on above: Performed By: #### 4 1000, 53092, 96256, 07564, 53055, 46322 ####[facility] CBC W/DIFFon 06-20-2017 ABS BASOPHILS 0.0 10*3/uL Normal 0.0-0.2 The [facility] Comment on above: Performed By: #### 4 1000, 72192, 63272, 14262, 34618, 22039 ####[facility] ABS IMM GRANS 0.0 10*3/uL Normal 0.0-0.2 The [facility] Comment on above: Performed By: #### 4 1000, 36025, 62399, 84115, 84068, 98297 ####[facility] ABS NEUTROPHILS 4.2 10*3/uL Normal 1.6-7.6 The [facility] Comment on above: Performed By: #### 4 1000, 94197, 15810, 16733, 59034, 36917 ####[facility] Basophils Auto #/vol (Bld) 0.2 % Normal 0.0-1.0 The [facility] Comment on above: Performed By: #### 4 1000, 73169, 77714, 29903, 88228, 38897 ####[facility] Eosinophils Auto #/vol (Bld) 0.1 10*3/uL Normal 0.0-0.5 The [facility] Comment on above: Performed By: #### 4 1000, 12421, 03652, 20495, 96394, 57445 ####[facility] [facility] Eosinophils/100 WBC Auto (Bld) 1.5 % Normal 0.0-6.0 The [facility] Comment on above: Performed By: #### 4 1000, 99943, 59691, 90127, 64323, 91512 ####[facility] [facility] Erythrocyte distribution width Auto Ratio (RBC) 13.4 % Normal 11.5-15.0 The [facility] Comment on above: Performed By: #### 4 1000, 80085, 90019, 04959, 03201, 15035 ####[facility]3000 [facility].[address] Hematocrit Auto Volume Fraction (Bld) 44.9 % Normal 36.0-45.0 The [facility] Comment on above: Performed By: #### 4 1000, 65371, 52824, 22270, 34135, 98605 ####[facility]3000 [facility].[address] Hemoglobin mass conc (Bld) 14.9 g/dL Normal 12.0-15.0 The [facility] Comment on above: Performed By: #### 4 1000, 93015, 85641, 52176, 72317, 66174 ####[facility]3000 [facility].[address] IMMATURE GRANS 0.2 % Normal 0.0-1.0 The [facility] Comment on above: Performed By: #### 4 1000, 13372, 23995, 86472, 86927, 61819 ####[facility]3000 [facility].[address] Lymphocytes Auto #/vol (Bld) 1.1 10*3/uL Low 1.2-4.0 The [facility] Comment on above: Performed By: #### 4 1000, 69546, 12734, 33388, 53035, 96136 ####[facility]3000 [facility].[address] Lymphocytes/100 WBC Auto (Bld) 17.4 % Low 20.0-45.0 The [facility] Comment on above: Performed By: #### 4 1000, 29916, 40742, 48577, 48646, 08960 ####[facility]3000 [facility].[address] MCH Auto Entitic mass (RBC) 29.2 pg Normal 27.0-33.0 The [facility] Comment on above: Performed By: #### 4 1000, 16548, 05974, 11368, 73014, 34118 ####[facility]3000 [facility].[address] MCHC Auto mass conc (RBC) 33.2 g/dL Normal 32.0-35.0 The [facility] Comment on above: Performed By: #### 4 1000, 53794, 18231, 39699, 35176, 32358 ####[facility]3000 [facility].[address] MCV Auto Entitic volume (RBC) 87.9 fL Normal 82.0-98.0 The [facility] Comment on above: Performed By: #### 4 1000, 77787, 33063, 34012, 64788, 16801 ####[facility]3000 [facility].[address] Monocytes Auto #/vol (Bld) 0.7 10*3/uL Normal 0.1-1.0 The [facility] Comment on above: Performed By: #### 4 1000, 60299, 79307, 60873, 44478, 83533 ####[facility]3000 [facility].[address] MONOS 11.3 % Normal 5.0-12.0 The [facility] Comment on above: Performed By: #### 4 1000, 63840, 58492, 19951, 35051, 66724 ####[facility] [place] [address], [facility] Neutrophils/100 WBC Auto (Bld) 69.4 % Normal 40.0-72.0 The [facility] Comment on above: Performed By: #### 4 1000, 42817, 44435, 19742, 47136, 55531 ####[facility] Nucleated RBC/100 WBC Ratio (Bld) 0 % Normal 0-0 The [facility] Comment on above: Performed By: #### 4 1000, 45719, 83070, 34882, 65690, 43892 ####[facility] PLAT CNT 198 10*3/uL Normal 150-400 The [facility] Comment on above: Performed By: #### 4 1000, 33447, 84399, 70766, 36083, 18279 ####[facility] [facility] RBC Auto #/vol (Bld) 5.11 10*6/uL High 3.80-5.00 Th e [facility] Comment on above: Performed By: #### 4 1000, 05822, 93597, 74519, 67445, 09623 ####[facility] [place] [address], [facility] WBC Auto #/vol (Bld) 6.0 10*3/uL Normal 4.0-10.6 The [facility] Comment on above: Performed By: #### 4 1000, 68546, 32101, 68482, 62727, 60430 ####[facility] [place] [address], [facility] COMP METABOLIC PANELon 06-20 Albumin mass conc 4.4 g/dL Normal 3.5-5.7 The [facility] Comment on above: Performed By: #### 4 1000, 49749, 50190, 73679, 46509, 79801 ####[facility] [place] [address], [facility] ALKALINE PHOSPH 133 IU/L High 34-104 [facility] Comment on above: Performed By: #### 4 1000, 01464, 23759, 67881, 05133, 66832 ####[facility] [place] [address], [facility] ALT enzyme act/vol 16 U/L Normal 7-52 The [facility] Comment on above: Performed By: #### 4 1000, 71179, 19510, 67018, 23825, 58293 ####[facility] [place] [address], [facility] AST enzyme act/vol 21 U/L Normal 13-39 The [facility] Comment on above: Performed By: #### 4 1000, 94163, 91614, 54551, 42417, 54212 ####[facility] [place] [address], [facility] Bilirubin mass conc 0.8 mg/dL Normal 0.3-1.0 The [facility] Comment on above: Performed By: #### 4 1000, 24677, 14854, 64129, 43716, 98982 ####[facility] [place] [address], [facility] Calcium mass conc 10.0 mg/dL Normal 8.6-10.3 The [facility] Comment on above: Performed By: #### 4 1000, 87647, 41548, 40724, 29668, 99570 ####[facility] [place] [address], [facility] Chloride molar conc 106 mmol/L Normal 98-107 [facility] Comment on above: Performed By: #### 4 1000, 99127, 16105, 54593, 84082, 07709 ####[facility] [place] [address], [facility] CO2 molar conc 27 mmol/L Normal 21-31 The [facility] Comment on above: Performed By: #### 4 1000, 22983, 52387, 31581, 02765, 20969 ####[facility] [place] [address], [facility] Creatinine mass conc 0.74 mg/dL Normal 0.60-1.20 [facility] Comment on above: Performed By: #### 4 1000, 04979, 85231, 51273, 78951, 80901 ####[facility] [place] [address], [facility] GFR/1.73 sq M predicted among blacks MDRD vol rate/area (S/P/Bld) mL/min/{1.73_m2} Normal >60 The [facility] Comment on above: Performed By: #### 4 1000, 80032, 07420, 72036, 98144, 23035 ####[facility] [place] [address], [facility] GFR/1.73 sq M predicted among non-blacks MDRD vol rate/area (S/P/Bld) mL/min/{1.73_m2} Normal >60 The [facility] Comment on above: Performed By: #### 4 1000, 46207, 13953, 12442, 49614, 79922 ####[facility] [place] [address], [facility] Glucose mass conc 95 mg/dL Normal 70-100 [facility] Comment on above: Performed By: #### 4 1000, 93534, 51850, 57936, 79305, 77286 ####[facility] Potassium molar conc 3.8 mmol/L Normal 3.5-5.1 The [facility] Comment on above: Performed By: #### 4 1000, 97856, 33070, 07447, 58693, 86877 ####[facility] Protein mass conc 7.3 g/dL Normal 6.0-8.3 The [facility] Comment on above: Performed By: #### 4 1000, 96112, 90802, 35797, 43990, 03903 ####[facility] [facility] Sodium molar conc 137 mmol/L Normal 136-145 The [facility] Comment on above: Performed By: #### 4 1000, 42683, 76208, 84523, 61662, 88494 ####[facility] [facility] Urea nitrogen mass conc 16 mg/dL Normal 7-25 The [facility] Comment on above: Performed By: #### 4 1000, 17111, 39722, 16023, 71628, 94804 ####[facility] [facility] DIRECT BILIon 06-20-2017 Bilirubin.direct mass conc 0.1 mg/dL Normal 0.0-0.2 The [facility] Comment on above: Performed By: #### 4 1000, 76183, 31151, 15573, 95216, 58614 ####[facility] EVEROLIMUS [id number] 8 EVEROLIMUS 6.7 ng/mL Normal The [facility] Comment on above: Result Comment: Ther [...] the transplantcenter.Test developed and characteristics determined by [facility]. See Compliance Statement B: [facility]/CSPerformed by [employer],[address] [place] [id number] qvq.[facility], Leonid Antonio MD - Lab. Director LIPID PROFILEon 06-20-2017 Cholesterol in HDL mass conc 45 mg/dL Normal 23-92 The [facility] Comment on above: Result Comment: Slig ht variation in normal range could be due to gender and/or age.HDL CHOLESTEROL REFERENCE RANGE:20 years and older Cardiovascular Risk> or =60 mg/dL Cnzezjswy47 TO 59 mg/dL Low Risk<40 mg/dL High Risk Performed By: #### 4 1000, 80979, 91907, 66053, 82224, 62690 ####[facility] [place] [address], [facility] Cholesterol in LDL mass conc 58 mg/dL Normal 0-130 The [facility] Comment on above: Result Comment: LDL IS A CALCULATIONLDL IS ONLY VALID IF THE TRIG IS LESS THAN 400. Performed By: #### 4 1000, 78612, 77921, 82292, 96840, 94702 ####[facility] [place] [address], [facility] Cholesterol mass conc 126 mg/dL Normal 120-200 The [facility] Comment on above: Result Comment: CHOL ESTEROL REFERENCE RANGE:20 YEARS AND OLDER CARDIOVASCULAR RISKLess than 200 mg/dl Low Tkah359 to 239 mg/dl Borderline Igys503 mg/dl and greater High Risk Performed By: #### 4 1000, 79301, 19071, 52890, 40660, 64479 ####[facility] [place] [address], [facility] Cholesterol.total/Cho lesterol in HDL mass ratio 2.8 {ratio} Normal .0-4.5 The [facility] Comment on above: Performed By: #### 4 1000, 10470, 12767, 06980, 46460, 03067 ####[facility] NON-HDL CHOLESTEROL 81 mg/dL Normal The [facility] Comment on above: Performed By: #### 4 1000, 80293, 69909, 16968, 62724, 42059 ####[facility] [place] [address], [facility] Triglyceride mass conc 113 mg/dL Normal 40-149 The [facility] Comment on above: Result Comment: TRIG LYCERIDE REFERENCE RANGE:20 YEARS AND OLDER CARDIOVASCULAR RISKLESS THAN 150 mg/dl LOW [id number] TO 199 mg/dl BORDERLINE [id number] mg/dl AND GREATER HIGH RISK Performed By: #### 4 1000, 43050, 42526, 14050, 91873, 55395 ####[facility] [place] [address], [facility] VLDL CHOL 23 mg/dL Normal 0-40 The [facility] Comment on above: Performed By: #### 4 1000, 57680, 53894, 55817, 42585, 26688 ####[facility] [place] [address], [facility] MAGNESIUM BLOODon 06-20-2017 Magnesium mass conc 1.9 mg/dL Normal 1.9-2.7 The [facility] Comment on above: Performed By: #### 4 1000, 31055, 33867, 97957, 37696, 52594 ####[facility] [place] [address], [facility] PHOSPHORUS BLOODon 8 Phosphate mass conc 3.1 mg/dL Normal 2.5-5.0 The [facility] Comment on above: Performed By: #### 4 1000, 30865, 01148, 34045, 06841, 93413 ####[facility] [place] [address], [facility] TACROLIMUSon 06-20-2017 Tacrolimus mass conc (Bld) 4.2 ng/mL Low 5.0-20.0 The [facility] Comment on above: Result Comment: The [employer] Tacrolimus assay is a delayed one-step immunoassayfor the quantitative determination of tacrolimus in human whole bloodusing the chemiluminescent microparticle immunoassay (CMIA) technologywith flexible assay protocols, referred to as Chemiflex. Performed By: #### 4 1000, 01093, 41412, 32926, 87620, 32432 ####[facility] [facility] [address], [facility] URIC ACID BLOODon 06-20-2017 Urate mass conc 4.3 mg/dL Normal 2.3-6.6 The [facility] Comment on above: Performed By: #### 4 1000, 76737, 96149, 64739, 97569, 29578 ####[facility]3000 [facility].[address] BK VIRUS QUANTITATION PCR BL OODon 05-27-2017 BKV QUANT PCR Not detected Normal The [facility] Comment on above: Result Comment: Meth od: BK virus was measured by quantitative polymerase chain reactionusing a TaqMan probe targeting the polyomavirus BK [employer]-1 gene.The lower limit of quantitation of the assay is 500 copies of BK genomeper milliliter of plasma or urine, and any detectable BK DNA below thatlevel is reported as: Detected, <500 copies/ml. Serial BK virusmeasurement can be used to monitor disease activity. (Reference:Kelsie simpson. J CLIN MICRO 2004; 42:0412-1755).This test was developed and its performance characteristics determinedby the [facility] Molecular Diagnostics Laboratory. It has not been approvedby the [place] Food and Drug Administration. However, such approval is notrequired for clinical implementation, and test results have been shownto be clinically useful. This laboratory is CAP accredited and CLIAcertified to perform high complexity testing. Performed By: #### 4 1000, 59641, 51510, 77670, 86301, 28292 ####[facility]3000 [facility].[address] LOG 10 COPIES Not detected Normal The [facility] Comment on above: Performed By: #### 4 1000, 70260, 82420, 21688, 03904, 07331 ####[facility]3000 [facility].[address] CBC W/DIFFon 05-27-2017 ABS BASOPHILS 0.0 10*3/uL Normal 0.0-0.2 The [facility] Comment on above: Performed By: #### 4 1000, 00575, 29848, 02247, 77607, 51457 ####[facility]3000 [facility].[address] ABS IMM GRANS 0.0 10*3/uL Normal 0.0-0.2 The [facility] Comment on above: Performed By: #### 4 1000, 88237, 40934, 32955, 85672, 69837 ####[facility]3000 [facility].[address] ABS NEUTROPHILS 4.8 10*3/uL Normal 1.6-7.6 The [facility] Comment on above: Performed By: #### 4 1000, 02631, 64977, 19749, 50055, 33744 ####[facility]3000 [facility].[address] Basophils Auto #/vol (Bld) 0.0 % Normal 0.0-1.0 The [facility] Comment on above: Performed By: #### 4 1000, 26829, 44460, 72883, 17187, 24116 ####[facility] Eosinophils Auto #/vol (Bld) 0.1 10*3/uL Normal 0.0-0.5 The [facility] Comment on above: Performed By: #### 4 1000, 39983, 57506, 71212, 44191, 40714 ####[facility] Eosinophils/100 WBC Auto (Bld) 1.1 % Normal 0.0-6.0 The [facility] Comment on above: Performed By: #### 4 1000, 41705, 84820, 66409, 35854, 94201 ####[facility] Erythrocyte distribution width Auto Ratio (RBC) 13.5 % Normal 11.5-15.0 The [facility] Comment on above: Performed By: #### 4 1000, 49010, 97477, 09903, 31998, 47685 ####[facility]3000 [facility] Hematocrit Auto Volume Fraction (Bld) 46.1 % High 36.0-45.0 The [facility] Comment on above: Performed By: #### 4 1000, 08245, 19929, 90286, 37000, 44221 ####[facility] Hemoglobin mass conc (Bld) 15.0 g/dL Normal 12.0-15.0 The [facility] Comment on above: Performed By: #### 4 1000, 74948, 32228, 09227, 89625, 47876 ####[facility] IMMATURE GRANS 0.3 % Normal 0.0-1.0 The [facility] Comment on above: Performed By: #### 4 1000, 66137, 84832, 50789, 08303, 53149 ####[address] Lymphocytes Auto #/vol (Bld) 1.0 10*3/uL Low 1.2-4.0 The [facility] Comment on above: Performed By: #### 4 1000, 20332, 96212, 55084, 29380, 38491 ####[address] Lymphocytes/100 WBC Auto (Bld) 15.7 % Low 20.0-45.0 The [facility] Comment on above: Performed By: #### 4 1000, 38946, 93975, 16983, 18076, 74817 ####[address] MCH Auto Entitic mass (RBC) 28.8 pg Normal 27.0-33.0 The [facility] Comment on above: Performed By: #### 4 1000, 85129, 66535, 06339, 56714, 88160 ####[address] MCHC Auto mass conc (RBC) 32.5 g/dL Normal 32.0-35.0 The [facility] Comment on above: Performed By: #### 4 1000, 71583, 28989, 28192, 19435, 07496 ####[address] MCV Auto Entitic volume (RBC) 88.7 fL Normal 82.0-98.0 The [facility] Comment on above: Performed By: #### 4 1000, 78979, 85274, 82471, 76331, 99858 ####[facility] Monocytes Auto #/vol (Bld) 0.8 10*3/uL Normal 0.1-1.0 [facility] Comment on above: Performed By: #### 4 1000, 77605, 23991, 33372, 03484, 81975 ####[facility] MONOS 11.4 % Normal 5.0-12.0 The [facility] Comment on above: Performed By: #### 4 1000, 78364, 41754, 38140, 23724, 82674 ####[facility]3000 [facility] Neutrophils/100 WBC Auto (Bld) 71.5 % Normal 40.0-72.0 The [facility] Comment on above: Performed By: #### 4 1000, 14465, 41165, 41627, 49005, 79899 ####[facility]3000 [facility] Nucleated RBC/100 WBC Ratio (Bld) 0 % Normal 0-0 [facility] Comment on above: Performed By: #### 4 1000, 27437, 64401, 28342, 62003, 73810 ####[facility]3000 [facility] PLAT CNT 199 10*3/uL Normal 150-400 The [facility] Comment on above: Performed By: #### 4 1000, 57571, 29847, 13845, 96892, 70352 ####[facility] [place] [address].[address] RBC Auto #/vol (Bld) 5.20 10*6/uL High 3.80-5.00 Th e [facility] Comment on above: Performed By: #### 4 1000, 20500, 53083, 77906, 57087, 77781 ####[facility] WBC Auto #/vol (Bld) 6.6 10*3/uL Normal 4.0-10.6 The [facility] Comment on above: Performed By: #### 4 1000, 63167, 60348, 81214, 10917, 16154 ####[facility] COMP METABOLIC PANELon 05-27 Albumin mass conc 4.6 g/dL Normal 3.5-5.7 The [facility] Comment on above: Performed By: #### 4 1000, 29868, 53682, 05714, 34671, 05000 ####[place] [id number] [facility].[address] ALKALINE PHOSPH 105 IU/L High 34-104 [facility] Comment on above: Performed By: #### 4 1000, 10982, 49473, 98678, 84892, 12830 ####[facility]3000 [facility].[address] ALT enzyme act/vol 20 U/L Normal 7-52 [facility] Comment on above: Performed By: #### 4 1000, 11287, 16136, 04909, 30543, 30504 ####[facility] AST enzyme act/vol 23 U/L Normal 13-39 [facility] Comment on above: Performed By: #### 4 1000, 53781, 78858, 95590, 47806, 44460 ####[facility] Bilirubin mass conc 0.6 mg/dL Normal 0.3-1.0 [facility] Comment on above: Performed By: #### 4 1000, 70728, 98976, 87004, 97445, 47343 ####[facility] [place] [address], [place] Calcium mass conc 9.8 mg/dL Normal 8.6-10.3 The [facility] Comment on above: Performed By: #### 4 1000, 78156, 05209, 12876, 74989, 42639 ####[facility] [place] [address], [place] Chloride molar conc 106 mmol/L Normal 98-107 [facility] Comment on above: Performed By: #### 4 1000, 51615, 49169, 26712, 36234, 03393 ####[facility] [place] [address], [place] CO2 molar conc 30 mmol/L Normal 21-31 [facility] Comment on above: Performed By: #### 4 1000, 05413, 31415, 09194, 68800, 73514 ####[facility] [place] [address], [place] Creatinine mass conc 0.80 mg/dL Normal 0.60-1.20 [facility] Comment on above: Performed By: #### 4 1000, 35858, 73190, 19986, 15883, 00915 ####[facility] [place] [address], [place] GFR/1.73 sq M predicted among blacks MDRD vol rate/area (S/P/Bld) mL/min/{1.73_m2} Normal >60 [facility] Comment on above: Performed By: #### 4 1000, 45766, 46609, 92623, 65465, 55609 ####[facility], [place] [address], [place] GFR/1.73 sq M predicted among non-blacks MDRD vol rate/area (S/P/Bld) mL/min/{1.73_m2} Normal >60 [facility] Comment on above: Performed By: #### 4 1000, 98355, 36505, 93994, 08714, 99744 ####[facility] [place] [address], [facility] Glucose mass conc 90 mg/dL Normal 70-100 The [facility] Comment on above: Performed By: #### 4 1000, 19452, 04066, 41907, 72743, 02600 ####[facility] [place] [address], [facility] Potassium molar conc 4.0 mmol/L Normal 3.5-5.1 The [facility] Comment on above: Performed By: #### 4 1000, 63628, 63415, 76369, 43327, 25328 ####[facility] [place] [address], [facility] Protein mass conc 6.8 g/dL Normal 6.0-8.3 The [facility] Comment on above: Performed By: #### 4 1000, 95699, 39510, 32623, 83250, 11370 ####[facility] [place] [address], [facility] Sodium molar conc 138 mmol/L Normal 136-145 The [facility] Comment on above: Performed By: #### 4 1000, 28989, 51726, 94758, 31595, 81600 ####[facility] [place] [address], [place] Urea nitrogen mass conc 14 mg/dL Normal 7-25 The [facility] Comment on above: Performed By: #### 4 1000, 42737, 92090, 16568, 88676, 72312 ####[facility] [place] [address], [place] DIRECT BILIon 05-27-2017 Bilirubin.direct mass conc 0.1 mg/dL Normal 0.0-0.2 [facility] Comment on above: Performed By: #### 4 1000, 23537, 85206, 08229, 68679, 71959 ####[facility] EVEROLIMUS 40144pl 8 EVEROLIMUS 5.6 ng/mL Normal [facility] Comment on above: [...] the transplantcenter.Test developed and characteristics determined by [employer]. See Compliance Statement B: [facility]/CSPerformed by [employer],[address] [place] [id number] hem.[facility], Leonid Antonio MD - Lab. Director HEMOGLOBIN A1Con 05-27-2017 Glucose mass conc 108 mg/dL Normal 70-126 [facility] Comment on above: Performed By: #### 4 1000, 19215, 38585, 50398, 34050, 12082 ####[facility] [facility] Hemoglobin A1c/Hemoglobin.total mass fraction (Bld) 5.4 % Normal 4.0-6.0 The [facility] Comment on above: Performed By: #### 4 1000, 70002, 19020, 90120, 59499, 73394 ####[facility] [place] [address], [facility] LIPID PROFILEon 05-27-2017 Cholesterol in HDL mass conc 39 mg/dL Normal 23-92 The [facility] Comment on above: Result Comment: Slig ht variation in normal range could be due to gender and/or age.HDL CHOLESTEROL REFERENCE RANGE:20 years and older Cardiovascular Risk> or =60 mg/dL [id number] TO 59 mg/dL Low Risk<40 mg/dL High Risk Performed By: #### 4 1000, 05967, 47283, 33077, 52144, 01788 ####[facility] [place] [address], [facility] Cholesterol in LDL mass conc 52 mg/dL Normal 0-130 The [facility] Comment on above: Result Comment: LDL IS A CALCULATIONLDL IS ONLY VALID IF THE TRIG IS LESS THAN 400. Performed By: #### 4 1000, 17510, 28267, 57974, 42528, 06627 ####[facility] [place] [address], [facility] Cholesterol mass conc 117 mg/dL Low 120-200 The [facility] Comment on above: Result Comment: CHOL ESTEROL REFERENCE RANGE:20 YEARS AND OLDER CARDIOVASCULAR RISKLess than 200 mg/dl Low [id number] to 239 mg/dl Borderline Xvhx542 mg/dl and greater High Risk Performed By: #### 4 1000, 11375, 44826, 42113, 26599, 12199 ####[facility] [place] [address], [facility] Cholesterol.total/Cho lesterol in HDL mass ratio 3.0 {ratio} Normal .0-4.5 The [facility] Comment on above: Performed By: #### 4 1000, 77392, 55818, 49856, 26656, 38135 ####[facility] NON-HDL CHOLESTEROL 78 mg/dL Normal The [facility] Comment on above: Performed By: #### 4 1000, 92458, 42805, 33571, 39690, 06753 ####[facility] [facility].[address] Triglyceride mass conc 131 mg/dL Normal 40-149 The [facility] Comment on above: Result Comment: TRIG LYCERIDE REFERENCE RANGE:20 YEARS AND OLDER CARDIOVASCULAR RISKLESS THAN 150 mg/dl LOW [id number] TO 199 mg/dl BORDERLINE [id number] mg/dl AND GREATER HIGH RISK Performed By: #### 4 1000, 38610, 57383, 47470, 87138, 50623 ####[facility]3000 [facility].[address] VLDL CHOL 26 mg/dL Normal 0-40 The [facility] Comment on above: Performed By: #### 4 1000, 46612, 70135, 78381, 57950, 93175 ####[facility] [facility].[address] MAGNESIUM BLOODon 05-27-2017 Magnesium mass conc 2.1 mg/dL Normal 1.9-2.7 The [facility] Comment on above: Performed By: #### 4 1000, 29225, 01500, 71697, 37262, 86459 ####[facility] [facility] PHOSPHORUS BLOODon 8 Phosphate mass conc 3.5 mg/dL Normal 2.5-5.0 The [facility] Comment on above: Performed By: #### 4 1000, 12243, 83122, 84381, 12343, 37163 ####[facility] [place] [address], [facility] TACROLIMUSon 05-27-2017 Tacrolimus mass conc (Bld) 4.4 ng/mL Low 5.0-20.0 The [facility] Comment on above: Result Comment: The [employer] Tacrolimus assay is a delayed one-step immunoassayfor the quantitative determination of tacrolimus in human whole bloodusing the chemiluminescent microparticle immunoassay (CMIA) technologywith flexible assay protocols, referred to as Chemiflex. Performed By: #### 4 1000, 74669, 95308, 66511, 80041, 84901 ####[facility] URIC ACID BLOODon 05-27-2017 Urate mass conc 4.6 mg/dL Normal 2.3-6.6 The [facility] Comment on above: Performed By: #### 4 1000, 71247, 24600, 37157, 90153, 46521 ####[facility] CBC W/DIFFon 04-29-2017 ABS BASOPHILS 0.0 10*3/uL Normal 0.0-0.2 The [facility] Comment on above: Performed By: #### 4 1000, 79218, 22577, 23167, 36068, 57843 ####[facility] ABS IMM GRANS 0.0 10*3/uL Normal 0.0-0.2 The [facility] Comment on above: Performed By: #### 4 1000, 48753, 89791, 11355, 05908, 60064 ####[facility] ABS NEUTROPHILS 4.6 10*3/uL Normal 1.6-7.6 The [facility] Comment on above: Performed By: #### 4 1000, 58531, 46190, 38741, 45164, 11348 ####[facility] Basophils Auto #/vol (Bld) 0.3 % Normal 0.0-1.0 The [facility] Comment on above: Performed By: #### 4 1000, 88156, 62696, 03284, 65131, 77498 ####[facility] Eosinophils Auto #/vol (Bld) 0.1 10*3/uL Normal 0.0-0.5 The [facility] Comment on above: Performed By: #### 4 1000, 40632, 33006, 49373, 74285, 83017 ####[facility] Eosinophils/100 WBC Auto (Bld) 1.7 % Normal 0.0-6.0 The [facility] Comment on above: Performed By: #### 4 1000, 07814, 10544, 11885, 49482, 22549 ####[facility] [facility] Erythrocyte distribution width Auto Ratio (RBC) 13.7 % Normal 11.5-15.0 The [facility] Comment on above: Performed By: #### 4 1000, 71796, 44352, 02195, 11429, 00259 ####[facility] [facility].[address] Hematocrit Auto Volume Fraction (Bld) 45.0 % Normal 36.0-45.0 The [facility] Comment on above: Performed By: #### 4 1000, 22392, 91333, 18874, 71086, 89967 ####[facility] Hemoglobin mass conc (Bld) 14.9 g/dL Normal 12.0-15.0 The [facility] Comment on above: Performed By: #### 4 1000, 92337, 00987, 30469, 73184, 27159 ####[facility] IMMATURE GRANS 0.3 % Normal 0.0-1.0 The [facility] Comment on above: Performed By: #### 4 1000, 01305, 14107, 49308, 86350, 19116 ####[facility]3000 [facility].[address] Lymphocytes Auto #/vol (Bld) 0.9 10*3/uL Low 1.2-4.0 The [facility] Comment on above: Performed By: #### 4 1000, 26734, 94939, 51505, 86232, 01546 ####[facility]3000 [facility].[address] Lymphocytes/100 WBC Auto (Bld) 14.2 % Low 20.0-45.0 The [facility] Comment on above: Performed By: #### 4 1000, 53017, 36190, 35929, 94141, 72916 ####[facility]3000 [facility].[address] MCH Auto Entitic mass (RBC) 29.4 pg Normal 27.0-33.0 The [facility] Comment on above: Performed By: #### 4 1000, 54586, 16957, 66449, 25542, 73227 ####[place] [id number] [facility].[address] MCHC Auto mass conc (RBC) 33.1 g/dL Normal 32.0-35.0 The [facility] Comment on above: Performed By: #### 4 1000, 51944, 32461, 86145, 68726, 11331 ####[facility]3000 [facility].[address] MCV Auto Entitic volume (RBC) 88.8 fL Normal 82.0-98.0 The [facility] Comment on above: Performed By: #### 4 1000, 88605, 53000, 65239, 73376, 73062 ####[facility] [place] [address].[address] Monocytes Auto #/vol (Bld) 0.8 10*3/uL Normal 0.1-1.0 [facility] Comment on above: Performed By: #### 4 1000, 26961, 14003, 79345, 94732, 42221 ####[facility] [facility] [place].[address] MONOS 12.2 % High 5.0-12.0 The [facility] Comment on above: Performed By: #### 4 1000, 74572, 93680, 15888, 46001, 67888 ####[facility]3000 [facility].[address] Neutrophils/100 WBC Auto (Bld) 71.3 % Normal 40.0-72.0 The [facility] Comment on above: Performed By: #### 4 1000, 87146, 60521, 50438, 65564, 53236 ####[facility]3000 [facility].[address] Nucleated RBC/100 WBC Ratio (Bld) 0 % Normal 0-0 The [facility] Comment on above: Performed By: #### 4 1000, 66690, 05097, 22029, 61087, 16885 ####[facility]3000 [facility].[address] PLAT CNT 215 10*3/uL Normal 150-400 The [facility] Comment on above: Performed By: #### 4 1000, 48839, 40311, 57474, 72085, 05914 ####[facility]3000 [facility].[address] RBC Auto #/vol (Bld) 5.07 10*6/uL High 3.80-5.00 Th e [facility] Comment on above: Performed By: #### 4 1000, 51632, 46815, 76707, 26224, 11959 ####[facility] WBC Auto #/vol (Bld) 6.5 10*3/uL Normal 4.0-10.6 The [facility] Comment on above: Performed By: #### 4 1000, 91809, 91608, 38290, 22051, 04588 ####[facility] COMP METABOLIC PANELon 04-29 Albumin mass conc 4.4 g/dL Normal 3.5-5.7 The [facility] Comment on above: Performed By: #### 4 1000, 07071, 98235, 52486, 69917, 70157 ####[facility] ALKALINE PHOSPH 114 IU/L High 34-104 The [facility] Comment on above: Performed By: #### 4 1000, 24943, 79366, 43526, 89485, 98724 ####[facility] ALT enzyme act/vol 15 U/L Normal 7-52 [facility] Comment on above: Performed By: #### 4 1000, 41679, 89996, 17770, 78721, 93752 ####[facility] [place] [address], [facility] AST enzyme act/vol 19 U/L Normal 13-39 [facility] Comment on above: Performed By: #### 4 1000, 79422, 67721, 14777, 92065, 29893 ####[facility] [place] [address], [facility] Bilirubin mass conc 0.7 mg/dL Normal 0.3-1.0 [facility] Comment on above: Performed By: #### 4 1000, 65716, 68702, 36104, 10123, 09035 ####[facility] [id number] [place] [address], [place] Calcium mass conc 9.6 mg/dL Normal 8.6-10.3 The [facility] Comment on above: Performed By: #### 4 1000, 14710, 69680, 96446, 64083, 03745 ####[facility] [place] [address], [place] Chloride molar conc 103 mmol/L Normal 98-107 [facility] Comment on above: Performed By: #### 4 1000, 59651, 48395, 12291, 38144, 63562 ####[facility] [place] [address], [place] CO2 molar conc 29 mmol/L Normal 21-31 The [facility] Comment on above: Performed By: #### 4 1000, 79841, 34838, 59881, 87692, 54339 ####[facility] [place] [address], [place] Creatinine mass conc 0.79 mg/dL Normal 0.60-1.20 The [facility] Comment on above: Performed By: #### 4 1000, 56558, 02262, 51181, 93020, 35479 ####[facility] [place] [address], [place] GFR/1.73 sq M predicted among blacks MDRD vol rate/area (S/P/Bld) mL/min/{1.73_m2} Normal >60 [facility] Comment on above: Performed By: #### 4 1000, 04087, 56656, 07677, 30753, 60539 ####[facility] [place] [address], [place] GFR/1.73 sq M predicted among non-blacks MDRD vol rate/area (S/P/Bld) mL/min/{1.73_m2} Normal >60 [facility] Comment on above: Performed By: #### 4 1000, 54874, 19916, 03080, 84225, 28753 ####[facility] [place] [address], [facility] Glucose mass conc 90 mg/dL Normal 70-100 The [facility] Comment on above: Performed By: #### 4 1000, 83219, 19947, 15395, 13609, 67177 ####[facility] [place] [address], [facility] Potassium molar conc 3.8 mmol/L Normal 3.5-5.1 The [facility] Comment on above: Performed By: #### 4 1000, 79797, 29673, 80587, 97123, 82607 ####[facility] [place] [address], [facility] Protein mass conc 7.2 g/dL Normal 6.0-8.3 The [facility] Comment on above: Performed By: #### 4 1000, 60300, 54390, 15769, 59817, 67848 ####[facility] [place] [address], [facility] Sodium molar conc 140 mmol/L Normal 136-145 The [facility] Comment on above: Performed By: #### 4 1000, 75391, 88877, 33848, 56149, 02722 ####[facility] [place] [address], [facility] Urea nitrogen mass conc 15 mg/dL Normal 7-25 The [facility] Comment on above: Performed By: #### 4 1000, 64060, 76956, 06593, 06861, 76417 ####[facility] [place] [address], [facility] DIRECT BILIon 04-29-2017 Bilirubin.direct mass conc 0.1 mg/dL Normal 0.0-0.2 The [facility] Comment on above: Order Comment: Liver Battery conflicts with Comprehensive Metabolic Panel. Liver Battery canceled and Direct Bilirubin added. Performed By: #### 4 1000, 25882, 17450, 68058, 29437, 12554 ####[facility] [place] [address], [facility] EVEROLIMUS [id number] 8 EVEROLIMUS 5.4 ng/mL Normal The [facility] Comment on above: Result Comment: Ther [...] the transplantcenter.Test developed and characteristics determined by [employer]. See Compliance Statement B: [facility]/CSPerformed by [employer],[address] [place] [id number] ghu.[facility], Leonid Antonio MD - Lab. Director LIPID PROFILEon 04-29-2017 Cholesterol in HDL mass conc 49 mg/dL Normal 23-92 The [facility] Comment on above: Result Comment: Slig ht variation in normal range could be due to gender and/or age.HDL CHOLESTEROL REFERENCE RANGE:20 years and older Cardiovascular Risk> or =60 mg/dL [id number] TO 59 mg/dL Low Risk<40 mg/dL High Risk Performed By: #### 4 1000, 09369, 82735, 68231, 45695, 01647 ####[facility] [place] [address], [facility] Cholesterol in LDL mass conc 52 mg/dL Normal 0-130 [facility] Comment on above: Result Comment: LDL IS A CALCULATIONLDL IS ONLY VALID IF THE TRIG IS LESS THAN 400. Performed By: #### 4 1000, 22943, 30505, 41554, 32683, 78651 ####[facility] [place] [address], [facility] Cholesterol mass conc 122 mg/dL Normal 120-200 The [facility] Comment on above: Result Comment: CHOL ESTEROL REFERENCE RANGE:20 YEARS AND OLDER CARDIOVASCULAR RISKLess than 200 mg/dl Low Ahej345 to 239 mg/dl Borderline Vpak221 mg/dl and greater High Risk Performed By: #### 4 1000, 47287, 90994, 61133, 50932, 12237 ####[facility] [place] [address], [facility] Cholesterol.total/Cho lesterol in HDL mass ratio 2.5 {ratio} Normal .0-4.5 [facility] Comment on above: Performed By: #### 4 1000, 72942, 69391, 98449, 83721, 86346 ####[facility] [place] [address], [facility] NON-HDL CHOLESTEROL 73 mg/dL Normal The [facility] Comment on above: Performed By: #### 4 1000, 41439, 33714, 13909, 43865, 32065 ####[facility] [place] [address], [facility] Triglyceride mass conc 106 mg/dL Normal 40-149 The [facility] Comment on above: Result Comment: TRIG LYCERIDE REFERENCE RANGE:20 YEARS AND OLDER CARDIOVASCULAR RISKLESS THAN 150 mg/dl LOW [id number] TO 199 mg/dl BORDERLINE [id number] mg/dl AND GREATER HIGH RISK Performed By: #### 4 1000, 14091, 04929, 93960, 99761, 43720 ####[facility] [place] [address], [facility] VLDL CHOL 21 mg/dL Normal 0-40 The [facility] Comment on above: Performed By: #### 4 1000, 43828, 68374, 23332, 57535, 82383 ####[facility] [place] [address], [facility] MAGNESIUM BLOODon 04-29-2017 Magnesium mass conc 2.1 mg/dL Normal 1.9-2.7 [facility] Comment on above: Performed By: #### 4 1000, 17726, 70074, 56212, 12926, 72783 ####[facility] [facility] [place] [address], [facility] PHOSPHORUS BLOODon 8 Phosphate mass conc 3.3 mg/dL Normal 2.5-5.0 The [facility] Comment on above: Performed By: #### 4 1000, 40922, 91009, 53899, 81674, 84353 ####[facility] [facility].[address] TACROLIMUSon 04-29-2017 Tacrolimus mass conc (Bld) 4.6 ng/mL Low 5.0-20.0 The [facility] Comment on above: Result Comment: The [employer] Tacrolimus assay is a delayed one-step immunoassayfor the quantitative determination of tacrolimus in human whole bloodusing the chemiluminescent microparticle immunoassay (CMIA) technologywith flexible assay protocols, referred to as Chemiflex. Performed By: #### 4 1000, 72855, 22139, 10840, 23620, 80326 ####[facility] [facility] [place] [address], [facility] URIC ACID BLOODon 04-29-2017 Urate mass conc 4.6 mg/dL Normal 2.3-6.6 The [facility] Comment on above: Performed By: #### 4 1000, 61137, 93622, 04325, 09995, 80515 ####[facility] [place] [address], [facility] CBC W/DIFFon 03-27-2017 Basophils Auto #/vol (Bld) 0.2 % Normal 0.0-2.0 The [facility] Comment on above: Performed By: #### 4 1000, 15236, 67926, 82644, 36084, 54450 ####[facility] [place] [address], [facility] Eosinophils/100 WBC Auto (Bld) 1.8 % Normal 0.0-5.0 The [facility] Comment on above: Performed By: #### 4 1000, 53355, 01631, 10407, 10746, 59743 ####[facility] Erythrocyte distribution width Auto Ratio (RBC) 13.6 % Normal 11.5-16.9 The [facility] Comment on above: Performed By: #### 4 1000, 17089, 96263, 35229, 39239, 33285 ####[facility] Hematocrit Auto Volume Fraction (Bld) 47.6 % Normal 36.0-48.0 The [facility] Comment on above: Performed By: #### 4 1000, 43329, 91931, 95947, 24768, 79848 ####[facility] [place] [address], [facility] Hemoglobin mass conc (Bld) 15.8 g/dL High 12.0-15.0 The [facility] Comment on above: Performed By: #### 4 1000, 32336, 81532, 09290, 81919, 12246 ####[facility] [place] [address], [facility] Lymphocytes/100 WBC Auto (Bld) 14.5 % Low 20.0-40.0 The [facility] Comment on above: Performed By: #### 4 1000, 25457, 68052, 06949, 15631, 94884 ####[facility] MCH Auto Entitic mass (RBC) 29.0 pg Normal 24.0-32.0 The [facility] Comment on above: Performed By: #### 4 1000, 59165, 59273, 63293, 58702, 32285 ####[facility] MCHC Auto mass conc (RBC) 33.3 g/dL Normal 32.0-36.0 The [facility] Comment on above: Performed By: #### 4 1000, 34502, 42417, 96473, 35128, 87431 ####[facility] MCV Auto Entitic volume (RBC) 87.4 fL Normal 80.0-100.0 The [facility] Comment on above: Performed By: #### 4 1000, 99148, 37614, 07995, 65222, 42779 ####[facility] METHOD Normal RBC Morphology Normal The [facility] Comment on above: Performed By: #### 4 1000, 63840, 35873, 28273, 98900, 85599 ####[facility] MONOS 9.6 % High 2-8 The [facility] Comment on above: Performed By: #### 4 1000, 10532, 69614, 70745, 30422, 74509 ####[facility] Neutrophils/100 WBC Auto (Bld) 73.9 % High 50-70 The [facility] Comment on above: Performed By: #### 4 1000, 28406, 20511, 09972, 86716, 74047 ####[facility] [place] [address], [facility] PLAT CNT 228 Thou/mm3 Normal 100-400 [facility] Comment on above: Performed By: #### 4 1000, 63362, 75936, 07584, 65820, 24117 ####[facility] RBC Auto #/vol (Bld) 5.45 mill/mm3 Normal 3.50-5.50 T [facility] Comment on above: Performed By: #### 4 1000, 53948, 33257, 74970, 84133, 29673 ####[facility] [place] [address], [facility] WBC Auto #/vol (Bld) 6.5 Thou/mm3 Normal 4.0-10.0 Th e [facility] Comment on above: Performed By: #### 4 1000, 52674, 23641, 10605, 83830, 73153 ####[facility] COMP METABOLIC PANELon 03-27 Albumin mass conc 4.7 g/dL Normal 3.5-5.7 The [facility] Comment on above: Performed By: #### 4 1000, 98647, 42352, 53881, 42190, 93966 ####[facility] ALKALINE PHOSPH 99 IU/L Normal 34-104 The [facility] Comment on above: Performed By: #### 4 1000, 82687, 04830, 30331, 68670, 69250 ####[facility] [place] [address], [facility] ALT enzyme act/vol 19 U/L Normal 7-52 The [facility] Comment on above: Performed By: #### 4 1000, 77155, 69272, 06410, 48011, 63494 ####[facility] [place] [address], [facility] AST enzyme act/vol 21 U/L Normal 13-39 The [facility] Comment on above: Performed By: #### 4 1000, 96084, 84415, 77661, 34020, 15141 ####[facility] [place] [address], [facility] Bilirubin mass conc 0.6 mg/dL Normal 0.3-1.0 [facility] Comment on above: Performed By: #### 4 1000, 77546, 32496, 80271, 32020, 76194 ####[facility] [place] [address], [facility] Calcium mass conc 10.2 mg/dL Normal 8.6-10.3 The [facility] Comment on above: Performed By: #### 4 1000, 99148, 93711, 11338, 90888, 11099 ####[facility] [place] [address], [facility] Chloride molar conc 104 mmol/L Normal 98-107 [facility] Comment on above: Performed By: #### 4 1000, 86913, 12711, 36881, 53275, 79141 ####[facility] [place] [address], [place] CO2 molar conc 28 mmol/L Normal 21-31 The [facility] Comment on above: Performed By: #### 4 1000, 47803, 38809, 48129, 42597, 93040 ####[facility] [place] [address], [place] Creatinine mass conc 0.78 mg/dL Normal 0.60-1.20 The [facility] Comment on above: Performed By: #### 4 1000, 44503, 82620, 56969, 26066, 82309 ####[facility] [place] [address], [place] GFR/1.73 sq M predicted among blacks MDRD vol rate/area (S/P/Bld) mL/min/{1.73_m2} Normal >60 [facility] Comment on above: Performed By: #### 4 1000, 59112, 85343, 44752, 30890, 68353 ####[facility] [place] [address], [place] GFR/1.73 sq M predicted among non-blacks MDRD vol rate/area (S/P/Bld) mL/min/{1.73_m2} Normal >60 [facility] Comment on above: Performed By: #### 4 1000, 85330, 94547, 92785, 79566, 72177 ####[facility] [place] [address], [place] Glucose mass conc 87 mg/dL Normal 70-100 The [facility] Comment on above: Performed By: #### 4 1000, 66460, 19800, 19232, 55414, 95169 ####[facility] [place] [address], [place] Potassium molar conc 4.1 mmol/L Normal 3.5-5.1 The [facility] Comment on above: Performed By: #### 4 1000, 83446, 26235, 82446, 08115, 04252 ####[facility] [place] [address], [place] Protein mass conc 7.8 g/dL Normal 6.0-8.3 The [facility] Comment on above: Performed By: #### 4 1000, 99400, 37964, 03801, 18341, 96291 ####[facility] [place] [address], [place] Sodium molar conc 139 mmol/L Normal 136-145 The [facility] Comment on above: Performed By: #### 4 1000, 18500, 97736, 78096, 84039, 59739 ####[facility] Urea nitrogen mass conc 19 mg/dL Normal 7-25 The [facility] Comment on above: Performed By: #### 4 1000, 56409, 50582, 68394, 21769, 62730 ####[facility] DIRECT BILIon 03-27-2017 Bilirubin.direct mass conc 0.1 mg/dL Normal 0.0-0.2 [facility] Comment on above: Performed By: #### 4 1000, 81487, 12880, 74529, 72721, 92186 ####[facility] EVEROLIMUS [id number] 7 EVEROLIMUS 5.3 ng/mL Normal The [facility] Comment on above: Result Comment: Ther [...] the transplantcenter.Test developed and characteristics determined by [facility] [employer] [facility]. See Compliance Statement B: [facility]/CSPerformed by [employer],[address] [place] [address] hoc.[facility], Leonid Antonio MD - Lab. Director LIPID PROFILEon 03-27-2017 Cholesterol in HDL mass conc 50 mg/dL Normal 23-92 The [facility] Comment on above: Result Comment: Slig ht variation in normal range could be due to gender and/or age.HDL CHOLESTEROL REFERENCE RANGE:20 years and older Cardiovascular Risk> or =60 mg/dL Fbuicbdar63 TO 59 mg/dL Low Risk<40 mg/dL High Risk Performed By: #### 4 1000, 66132, 18418, 14541, 42951, 86752 ####[facility] [place] [address], [facility] Cholesterol in LDL mass conc 66 mg/dL Normal 0-130 The [facility] Comment on above: Result Comment: LDL IS A CALCULATIONLDL IS ONLY VALID IF THE TRIG IS LESS THAN 400. Performed By: #### 4 1000, 03292, 64037, 22290, 85693, 92174 ####[facility] [place] [address], [facility] Cholesterol mass conc 147 mg/dL Normal 120-200 The [facility] Comment on above: Result Comment: CHOL ESTEROL REFERENCE RANGE:20 YEARS AND OLDER CARDIOVASCULAR RISKLess than 200 mg/dl Low Qrdu081 to 239 mg/dl Borderline Nxdr468 mg/dl and greater High Risk Performed By: #### 4 1000, 87128, 39074, 98216, 11386, 43149 ####[facility] [place] [address], [facility] Cholesterol.total/Cho lesterol in HDL mass ratio 2.9 {ratio} Normal .0-4.5 The [facility] Comment on above: Performed By: #### 4 1000, 71376, 15814, 04638, 05034, 08141 ####[facility] [facility] NON-HDL CHOLESTEROL 97 mg/dL Normal The [facility] Comment on above: Performed By: #### 4 1000, 65745, 19677, 34196, 40589, 70064 ####[facility] [facility].[address] Triglyceride mass conc 157 mg/dL High 40-149 The [facility] Comment on above: Result Comment: TRIG LYCERIDE REFERENCE RANGE:20 YEARS AND OLDER CARDIOVASCULAR RISKLESS THAN 150 mg/dl LOW OWLO383 TO 199 mg/dl BORDERLINE [id number] mg/dl AND GREATER HIGH RISK Performed By: #### 4 1000, 01131, 81541, 25319, 10554, 96423 ####[facility] [facility].[address] VLDL CHOL 31 mg/dL Normal 0-40 The [facility] Comment on above: Performed By: #### 4 1000, 42746, 36409, 30174, 11086, 45712 ####[facility] [facility] MAGNESIUM BLOODon 03-27-2017 Magnesium mass conc 1.9 mg/dL Normal 1.9-2.7 The [facility] Comment on above: Performed By: #### 4 1000, 38751, 22291, 42200, 20026, 49169 ####[facility] [facility].[address] PHOSPHORUS BLOODon 7 Phosphate mass conc 3.4 mg/dL Normal 2.5-5.0 [facility] Comment on above: Performed By: #### 4 1000, 64903, 90716, 68593, 10743, 46449 ####[facility] [place] [address], [facility] TACROLIMUSon 03-27-2017 Tacrolimus mass conc (Bld) 3.7 ng/mL Low 5.0-20.0 The [facility] Comment on above: Result Comment: The [employer] Tacrolimus assay is a delayed one-step immunoassayfor the quantitative determination of tacrolimus in human whole bloodusing the chemiluminescent microparticle immunoassay (CMIA) technologywith flexible assay protocols, referred to as Chemiflex. Performed By: #### 4 1000, 82666, 58547, 05582, 61495, 65347 ####[facility] [facility].[address] URIC ACID BLOODon 03-27-2017 Urate mass conc 4.1 mg/dL Normal 2.3-6.6 [facility] Comment on above: Performed By: #### 4 1000, 47169, 42361, 58926, 36204, 63733 ####[facility] [facility].[address] BK VIRUS QUANTITATION PCR BL OODon 02-26-2017 BKV QUANT PCR Not detected Normal The [facility] Comment on above: Result Comment: Meth od: BK virus was measured by quantitative polymerase chain reactionusing a TaqMan probe targeting the polyomavirus BK [employer]-1 gene.The lower limit of quantitation of the assay is 500 copies of BK genomeper milliliter of plasma or urine, and any detectable BK DNA below thatlevel is reported as: Detected, <500 copies/ml. Serial BK virusmeasurement can be used to monitor disease activity. (Reference:Kelsie vaughanl. J CLIN MICRO 2004; 42:8676-3248).This test was developed and its performance characteristics determinedby the [facility] Molecular Diagnostics Laboratory. It has not been approvedby the US Food and Drug Administration. However, such approval is notrequired for clinical implementation, and test results have been shownto be clinically useful. This laboratory is CAP accredited and CLIAcertified to perform high complexity testing. Performed By: #### 4 1000, 79170, 24260, 04024, 20768, 49982 ####[facility] LOG 10 COPIES Not detected Normal [facility] Comment on above: Performed By: #### 4 1000, 17776, 82389, 52395, 79105, 03934 ####[facility] CBC W/DIFFon 02-26-2017 Basophils Auto #/vol (Bld) 0.3 % Normal 0.0-2.0 The [facility] Comment on above: Performed By: #### 5 0103 ####[facility] [place] [address], [facility] Eosinophils/100 WBC Auto (Bld) 2.2 % Normal 0.0-5.0 The [facility] Comment on above: Performed By: #### 5 0103 ####[facility] [facility] Erythrocyte distribution width Auto Ratio (RBC) 13.8 % Normal 11.5-16.9 The [facility] Comment on above: Performed By: #### 5 0103 ####[facility] [facility] Hematocrit Auto Volume Fraction (Bld) 44.9 % Normal 36.0-48.0 The [facility] Comment on above: Performed By: #### 5 0103 ####[facility] [facility] [place] [address], [facility] Hemoglobin mass conc (Bld) 15.0 g/dL Normal 12.0-15.0 The [facility] Comment on above: Performed By: #### 5 0103 ####[facility] [place] [address], [facility] Lymphocytes/100 WBC Auto (Bld) 18.9 % Low 20.0-40.0 The [facility] Comment on above: Performed By: #### 5 3 ####[facility] [place] [address], [facility] MCH Auto Entitic mass (RBC) 28.9 pg Normal 24.0-32.0 The [facility] Comment on above: Performed By: #### 5 3 ####[facility] MCHC Auto mass conc (RBC) 33.4 g/dL Normal 32.0-36.0 The [facility] Comment on above: Performed By: #### 5 3 ####[facility] MCV Auto Entitic volume (RBC) 86.6 fL Normal 80.0-100.0 The [facility] Comment on above: Performed By: #### 102 ####[facility] METHOD Normal RBC Morphology Normal The [facility] Comment on above: Performed By: #### 102 ####[facility] MONOS 11.7 % High 2-8 The [facility] Comment on above: Performed By: #### 5 102 ####[facility] Neutrophils/100 WBC Auto (Bld) 66.9 % Normal 50-70 The [facility] Comment on above: Performed By: #### 5 3 ####[facility] PLAT CNT 230 Thou/mm3 Normal 100-400 The [facility] Comment on above: Performed By: #### 5 3 ####[facility] RBC Auto #/vol (Bld) 5.18 mill/mm3 Normal 3.50-5.50 T he [facility] Comment on above: Performed By: #### 5 3 ####[facility] WBC Auto #/vol (Bld) 5.8 Thou/mm3 Normal 4.0-10.0 Th e [facility] Comment on above: Performed By: #### 5 0103 ####[facility] COMP METABOLIC PANELon 02-26 Albumin mass conc 4.7 g/dL Normal 3.5-5.7 The [facility] Comment on above: Performed By: #### 4 1000, 27999, 36410, 61937, 39964, 52029 ####[facility] ALKALINE PHOSPH 115 IU/L High 34-104 The [facility] Comment on above: Performed By: #### 4 1000, 21733, 31468, 64370, 67496, 97138 ####[facility] ALT enzyme act/vol 18 U/L Normal 7-52 [facility] Comment on above: Performed By: #### 4 1000, 15768, 95508, 11390, 85375, 22396 ####[facility] AST enzyme act/vol 22 U/L Normal 13-39 [facility] Comment on above: Performed By: #### 4 1000, 19582, 54263, 40151, 07697, 64046 ####[facility] Bilirubin mass conc 0.6 mg/dL Normal 0.3-1.0 [facility] Comment on above: Performed By: #### 4 1000, 22256, 41265, 27815, 01037, 70215 ####[facility] Calcium mass conc 9.8 mg/dL Normal 8.6-10.3 [facility] Comment on above: Performed By: #### 4 1000, 35591, 79780, 35143, 40547, 75867 ####[facility] [place] [address], [place] Chloride molar conc 103 mmol/L Normal 98-107 [facility] Comment on above: Performed By: #### 4 1000, 17218, 74821, 42749, 09711, 25256 ####[facility] [place] [address], [place] CO2 molar conc 29 mmol/L Normal 21-31 The [facility] Comment on above: Performed By: #### 4 1000, 37699, 88743, 27842, 84784, 85796 ####[facility] [place] [address], [place] Creatinine mass conc 0.78 mg/dL Normal 0.60-1.20 The [facility] Comment on above: Performed By: #### 4 1000, 76795, 74665, 63916, 42828, 79508 ####[facility] [place] [address], [place] GFR/1.73 sq M predicted among blacks MDRD vol rate/area (S/P/Bld) mL/min/{1.73_m2} Normal >60 [facility] Comment on above: Performed By: #### 4 1000, 52245, 19151, 18040, 84145, 15113 ####[facility] [place] [address], [place] GFR/1.73 sq M predicted among non-blacks MDRD vol rate/area (S/P/Bld) mL/min/{1.73_m2} Normal >60 [facility] Comment on above: Performed By: #### 4 1000, 04183, 91208, 66034, 22521, 61399 ####[facility] [place] [address], [facility] Glucose mass conc 94 mg/dL Normal 70-100 The [facility] Comment on above: Performed By: #### 4 1000, 70273, 05933, 07163, 94283, 14449 ####[facility] [place] [address], [facility] Potassium molar conc 3.8 mmol/L Normal 3.5-5.1 The [facility] Comment on above: Performed By: #### 4 1000, 63130, 89593, 23329, 98266, 59163 ####[facility] [place] [address], [facility] Protein mass conc 7.4 g/dL Normal 6.0-8.3 The [facility] Comment on above: Performed By: #### 4 1000, 28372, 93255, 36837, 31944, 61141 ####[facility] [place] [address], [facility] Sodium molar conc 136 mmol/L Normal 136-145 The [facility] Comment on above: Performed By: #### 4 1000, 01644, 44247, 22615, 16943, 41275 ####[facility] [place] [address], [facility] Urea nitrogen mass conc 19 mg/dL Normal 7-25 The [facility] Comment on above: Performed By: #### 4 1000, 47816, 46759, 36320, 64717, 15115 ####[facility] [id number], [facility] DIRECT BILIon 02-26-2017 Bilirubin.direct mass conc 0.1 mg/dL Normal 0.0-0.2 The [facility] Comment on above: Performed By: #### 4 1000, 75989, 25289, 77711, 53609, 91341 ####[facility] EVEROLIMUS 28536kb 7 EVEROLIMUS 5.9 ng/mL Normal [facility] Comment on above: [...] the transplantcenter.Test developed and characteristics determined by [employer]. See Compliance Statement B: [facility]/CSPerformed by [employer],[address] [place] [address] oma.[facility], Leonid Antonio MD - Lab. Director HEMOGLOBIN A1Con 02-26-2017 Glucose mass conc 108 mg/dL Normal 70-126 [facility] Comment on above: Performed By: #### 4 1860, 82954 ####[facility] Hemoglobin A1c/Hemoglobin.total mass fraction (Bld) 5.4 % Normal 4.0-6.0 The [facility] Comment on above: Performed By: #### 4 9008, 59470 ####[facility] [place] [address], [facility] LIPID PROFILEon 02-26-2017 Cholesterol in HDL mass conc 54 mg/dL Normal 23-92 The [facility] Comment on above: Result Comment: Slig ht variation in normal range could be due to gender and/or age.HDL CHOLESTEROL REFERENCE RANGE:20 years and older Cardiovascular Risk> or =60 mg/dL Vbkombufg91 TO 59 mg/dL Low Risk<40 mg/dL High Risk Performed By: #### 4 1000, 29308, 43120, 48783, 17224, 57225 ####[facility] [place] [address], [facility] Cholesterol in LDL mass conc 70 mg/dL Normal 0-130 The [facility] Comment on above: Result Comment: LDL IS A CALCULATIONLDL IS ONLY VALID IF THE TRIG IS LESS THAN 400. Performed By: #### 4 1000, 15183, 37323, 88939, 56181, 33455 ####[facility] [place] [address], [facility] Cholesterol mass conc 144 mg/dL Normal 120-200 The [facility] Comment on above: Result Comment: CHOL ESTEROL REFERENCE RANGE:20 YEARS AND OLDER CARDIOVASCULAR RISKLess than 200 mg/dl Low Txkg703 to 239 mg/dl Borderline Thmq889 mg/dl and greater High Risk Performed By: #### 4 1000, 25789, 67816, 68902, 64541, 37906 ####[facility] [place] [address], [facility] Cholesterol.total/Cho lesterol in HDL mass ratio 2.7 {ratio} Normal .0-4.5 The [facility] Comment on above: Performed By: #### 4 1000, 99871, 23131, 30755, 47340, 34847 ####[facility] [place] [address], [facility] NON-HDL CHOLESTEROL 90 mg/dL Normal [facility] Comment on above: Performed By: #### 4 1000, 85237, 01209, 03690, 18185, 71360 ####[facility] Triglyceride mass conc 101 mg/dL Normal 40-149 The [facility] Comment on above: Result Comment: TRIG LYCERIDE REFERENCE RANGE:20 YEARS AND OLDER CARDIOVASCULAR RISKLESS THAN 150 mg/dl LOW [id number] TO 199 mg/dl BORDERLINE BTUH183 mg/dl AND GREATER HIGH RISK Performed By: #### 4 1000, 40002, 03759, 25469, 98213, 20078 ####[facility] VLDL CHOL 20 mg/dL Normal 0-40 The [facility] Comment on above: Performed By: #### 4 1000, 07846, 25324, 48084, 26243, 02127 ####[facility] [facility] MAGNESIUM BLOODon 02-26-2017 Magnesium mass conc 1.9 mg/dL Normal 1.9-2.7 [facility] Comment on above: Performed By: #### 4 1000, 99333, 38798, 86017, 55964, 45839 ####[facility] [facility] PHOSPHORUS BLOODon 7 Phosphate mass conc 4.1 mg/dL Normal 2.5-5.0 [facility] Comment on above: Performed By: #### 4 1000, 27178, 63192, 97168, 69737, 92802 ####[facility] TACROLIMUSon 02-26-2017 Tacrolimus mass conc (Bld) 4.2 ng/mL Low 5.0-20.0 The [facility] Comment on above: Result Comment: The [employer] Tacrolimus assay is a delayed one-step immunoassayfor the quantitative determination of tacrolimus in human whole bloodusing the chemiluminescent microparticle immunoassay (CMIA) technologywith flexible assay protocols, referred to as Chemiflex. Performed By: #### 4 6447, 69815 ####[facility] URIC ACID BLOODon 02-26-2017 Urate mass conc 4.3 mg/dL Normal 2.3-6.6 The [facility] Comment on above: Performed By: #### 4 1000, 17163, 50007, 45493, 47191, 69546 ####[facility] Vital Signs Date Time Vital Sign Value Performing Clinician Facility 06-01-2024 13:05-0500 Body height 152.4 cm Ester Hemmer PA Work Phone: [facility] 06-01-2024 13:05-0500 Body mass index (BMI) [Ratio] 24.65 kg/m2 Ester Hemmer PA Work Phone: [facility] 06-01-2024 13:05-0500 Body temperature 98.29 [degF] Ester Hemmer PA Work Phone: [facility] 06-01-2024 13:05-0500 Body weight 57.24 kg Ester Hemmer PA Work Phone: [facility] 06-01-2024 13:05-0500 Diastolic blood pressure 74 mm[Hg] Ester Hemmer PA Work Phone: [facility] 06-01-2024 13:05-0500 Heart rate 69 /min Ester Hemmer PA Work Phone: [facility] 06-01-2024 13:05-0500 Respiratory rate 16 /min Ester Hemmer PA Work Phone: [facility] 06-01-2024 13:05-0500 SaO2% (BldA) [Mass fraction] 95 % Ester Hemmer PA Work Phone: [facility] 06-01-2024 13:05-0500 Systolic blood pressure 112 mm[Hg] Ester Hemmer PA Work Phone: [facility] 08-30-2023 09:22-0400 Body height 182.88 cm [facility] 08-30-2023 09:22-0400 Body mass index (BMI) [Ratio] 17.9 kg/m2 [facility] 08-30-2023 09:22-0400 Body temperature 99.8 [degF] [facility] 08-30-2023 09:22-0400 Body weight 59.87 kg [facility] 08-30-2023 09:22-0400 Diastolic blood pressure 73 mm[Hg] [facility] 08-30-2023 09:22-0400 Heart rate 67 /min [facility] 08-30-2023 09:22-0400 SaO2% (BldA) [Mass fraction] 95 % [facility] 08-30-2023 09:22-0400 Systolic blood pressure 111 mm[Hg] [facility] 03-27-2023 11:30-0500 Body height 152.4 cm Cathy Bella Other [employer] [facility] [employer] Other 03-27-2023 11:30-0500 Body mass index (BMI) [Ratio] 25.39 kg/m2 Cathy Bella Other [employer] Other 03-27-2023 11:30-0500 Body temperature 97.5 [degF] Cathy Blela Other [employer] Other 03-27-2023 11:30-0500 Body weight 58.97 kg Cathy Bella Other [employer] Other 03-27-2023 11:30-0500 Respiratory rate 18 /min Cathy Bella Other [employer] Other 03-27-2023 11:30-0500 SaO2% (BldA) [Mass fraction] 96 % Cathy Bella Other [employer] Other 09-21-2022 09:00-0400 Body height 152.4 cm Martha Smithmond Other [employer] Other 09-21-2022 09:00-0400 Body mass index (BMI) [Ratio] 22.46 kg/m2 Martha Paola Other [employer] Other 09-21-2022 09:00-0400 Body temperature 97.6 [degF] Martha Guevara Other [employer] Other 09-21-2022 09:00-0400 Body weight 52.16 kg Martha Paola Other [employer] Other 09-21-2022 09:00-0400 Diastolic blood pressure 70 mm[Hg] Martha Paola Other [employer] Other 09-21-2022 09:00-0400 Respiratory rate 18 /min Martha Paola Other [employer] Other 09-21-2022 09:00-0400 SaO2% (BldA) [Mass fraction] 96 % Martha Paola Other [employer] Other 09-21-2022 09:00-0400 Systolic blood pressure 107 mm[Hg] Martha Paola Other [employer] Other 01-12-2022 13:55-0400 Body height 152.4 cm Cathy Bella Other [employer] Other 01-12-2022 13:55-0400 Body mass index (BMI) [Ratio] 19.53 kg/m2 Cathy Bella Other [facility] Other 01-12-2022 13:55-0400 Body temperature 96.9 [degF] Cathy Shayne Other [facility] Other 01-12-2022 13:55-0400 Body weight 45.36 kg Cathy Shayne Other [facility] Other 01-12-2022 13:55-0400 Respiratory rate 18 /min Cathy Shayne Other [facility] Other 01-12-2022 13:55-0400 SaO2% (BldA) [Mass fraction] 97 % Cathy Bella Other [facility] Other 12-28-2021 10:20-0400 Body height 152.4 cm Martha Smithmond Other [facility] Other 12-28-2021 10:20-0400 Body mass index (BMI) [Ratio] 21.48 kg/m2 Martha Paola Other [facility] Other 12-28-2021 10:20-0400 Body temperature 98 [degF] Martha Smithmond Other [facility] Other 12-28-2021 10:20-0400 Body weight 49.9 kg Martha Smithmond Other [facility] Other 12-28-2021 10:20-0400 Respiratory rate 18 /min Martha Paola Other [facility] Other 12-28-2021 10:20-0400 SaO2% (BldA) [Mass fraction] 97 % Martha Paola Other [facility] Other 12-25-2021 10:05-0400 Body height 152.4 cm Cathy Bella Other [facility] Other 12-25-2021 10:05-0400 Body mass index (BMI) [Ratio] 21.48 kg/m2 Cathy Bella Other [facility] Other 12-25-2021 10:05-0400 Body temperature 96 [degF] Cathy Bella Other [facility] Other 12-25-2021 10:05-0400 Body weight 49.9 kg Cathy Bella Other [facility] Other 12-25-2021 10:05-0400 Respiratory rate 18 /min Cathy Bella Other [facility] Other 12-25-2021 10:05-0400 SaO2% (BldA) [Mass fraction] 97 % Cathy Bella Other [facility] Other 10-27-2021 12:35-0400 Body height 152.4 cm Cathy Bella Other [facility] Other 10-27-2021 12:35-0400 Body mass index (BMI) [Ratio] 22.85 kg/m2 Cathy Bella Other [facility] Other 10-27-2021 12:35-0400 Body weight 53.07 kg Cathy Bella Other [facility] Other 10-27-2021 12:35-0400 Diastolic blood pressure 87 mm[Hg] Cathy Bella Other [facility] Other 10-27-2021 12:35-0400 SaO2% (BldA) [Mass fraction] 98 % Cathy Bella Other [facility] Other 10-27-2021 12:35-0400 Systolic blood pressure 130 mm[Hg] Cathy Bella Other [facility] Other 08-14-2021 10:40-0400 Body height 152.4 cm Martha Paola Other [facility] Other 08-14-2021 10:40-0400 Body mass index (BMI) [Ratio] 22.46 kg/m2 Martha Paola Other [facility] Other 08-14-2021 10:40-0400 Body temperature 96.7 [degF] Martha Paola Other [facility] Other 08-14-2021 10:40-0400 Body weight 52.16 kg Martha Paola Other [facility] Other 08-14-2021 10:40-0400 Diastolic blood pressure 68 mm[Hg] Martha Paola Other [facility] Other 08-14-2021 10:40-0400 Respiratory rate 20 /min Martha Paola Other [facility] Other 08-14-2021 10:40-0400 SaO2% (BldA) [Mass fraction] 98 % Martha Paola Other [facility] Other 08-14-2021 10:40-0400 Systolic blood pressure 144 mm[Hg] Martha Paola Other [facility] Other Encounters Encounter Date Encounter Type Care Provider Facility Start: 11-17-2024 End: 11-17-2024 Clinisync Result Encounter Generic External Data Provider [facility] External [facility] Unsolicited Start: 11-17-2024 End: 11-17-2024 Clinisync Result Encounter Generic External Data Provider [facility] External Department Unsolicited Start: 10-20-2024 End: 10-20-2024 Clinisync Result Encounter Generic External Data Provider [facility] External Department Unsolicited Start: 10-20-2024 End: 10-20-2024 Clinisync Result Encounter Generic External Data Provider [facility] External Department Unsolicited Start: 10-14-2024 End: 10-14-2024 Telephone encounter Ester STEIN Work Phone: [facility] Start: 09-29-2024 End: 09-29-2024 [facility] Start: 09-22-2024 End: 09-22-2024 Clinisync Result [...] [facility] Start: 06-01-2024 End: 06-01-2024 Jay STEIN Work Phone: [facility] Start: 06-01-2024 End: 06-01-2024 Patient encounter procedure Ester Padilla PA Work Phone: [facility] Comment on above: Medicare annual well ness visit, subsequent (Primary Dx); ACP (advance care planning); Acute non-recurrent pansinusitis; Acute bronchitis, unspecified organism; Primary hypertension ([facility]/HCC); PKD (polycystic kidney disease); Joint contracture of foot, unspecified laterality; Immunosuppression ([facility]); Abnormal complete blood count; Current moderate episode of major depressive disorder without prior episode (HCC) ([facility]); Elevated alkaline phosphatase level; Estrogen deficiency; Generalized anxiety disorder ([facility]/HCC); Hypercholesteremia ([facility]/HCC); Hypomagnesemia; Renal transplant recipient ([facility]) Start: 06-01-2024 End: 06-01-2024 ambulatory ESTER PADILLA [...] Department Unsolicited Start: 04-01-2024 End: 04-01-2024 ambulatory [facility] Start: 03-19-2024 End: 03-19-2024 Clinisync Result Encounter [...] Not Available Start: 08-30-2023 End: 08-30-2023 ambulatory [facility] Work Phone: Start: 08-30-2023 End: 08-30-2023 Patient encounter procedure [facility] [place] Work Phone: Start: 03-27-2023 End: 03-27-2023 ambulatory Cathy Bella Other [facility] Other Start: 03-27-2023 Office outpatient vi sit 25 minutes Cathy Bella [facility] [place] Start: 09-21-2022 End: 09-21-2022 ambulatory Martha Guevara Other [facility] Other Start: 09-21-2022 Office outpatient vi sit [...] Facility:[facility]1 Start: 03-11-2022 End: 03-12-[address] OBRIEN MISC Facility:[facility]1 Start: 02-08-2022 End: 02-09-[address] DORY BARNES Facility:[facility]1 Start: 01-28-2022 End: 01-29-2022 ambulatory DOCTOR MISC Facility:[facility]1 Start: 01-12-2022 End: 01-12-2022 ambulatory Cathy Bella Other [facility] Other Start: 01-12-2022 Office outpatient vi sit 15 minutes Cathy Bella [facility] [place] Start: 01-07-2022 End: 01-07-2022 ambulatory ISATU GUAMAN . Facility:[facility]1 Start: 01-03-2022 End: 01-04-[address] SCOUT SWIFT Facility:[facility]1 Start: 12-28-2021 End: 12-28-2021 ambulatory Martha Guevara Other [facility] Other Start: 12-28-2021 Office outpatient vi sit 15 minutes Martha Paola [facility] [place] Start: 12-25-2021 End: 12-25-2021 ambulatory Cathy Bella Other [facility] Other Start: 12-25-2021 Office outpatient vi sit 25 minutes Cathy Bella [facility] [place] Start: 12-05-2021 End: 12-06-[address] OBRIEN MISC Facility:[facility]1 Start: 11-07-2021 End: 11-08-2021 ambulatory DOCTOR MISC Facility:[facility]1 Start: 10-27-2021 End: 10-27-2021 ambulatory Cathy Bella Other [facility] Other Start: 10-27-2021 Office outpatient vi sit 15 minutes Cathy Bella [facility] [place] Start: 10-15-2021 End: 10-16-2021 ambulatory DOCTOR MISC Facility:[facility]1 Start: 10-08-2021 End: 10-09-2021 ambulatory DOCTOR MISC Facility:[facility]1 Start: 09-10-2021 End: 09-11-[address] OBRIEN VALERIAAngy Facility: Start: 08-14-2021 End: 08-14-2021 ambulatory Martha Guevara Other [facility] Other Start: 08-14-2021 Office outpatient vi sit 15 minutes Martha Guevara [facility] [place] Start: 12-31-2017 End: 01-01-2018 Patient encounter SCOUT MIKE Facility:[facility] Start: 12-25-2017 End: 12-26-2017 Patient encounter ROSALINDA ROSENBAUM Facility:[facility] Start: 10-30-2017 End: 10-31-2017 Patient encounter ROSALINDA ROSENBAUM Facility:[facility] Start: 10-23-2017 End: 10-24-2017 Patient encounter ROSALINDA ROSENBAUM Facility:[facility] Start: 09-25-2017 End: 09-26-2017 Patient encounter ROSALINDA ROSENBAUM Facility:[facility] Start: 08-26-2017 End: 08-27-2017 Patient encounter ORSALINDA ROSENBAUM Facility:[facility] Start: 07-23-2017 End: 07-24-2017 Patient encounter ROSALINDA ROSENBAUM Facility:[facility] Start: 06-20-2017 End: 06-21-2017 Patient encounter ROSALINDA ROSENBAUM Facility:[facility] Start: 05-27-2017 End: 05-28-2017 Patient encounter ROSALINDA ROSENBAUM Facility:[facility] Start: 04-29-2017 End: 04-30-2017 Patient encounter ROSALINDA ROSENBAUM Facility:[facility] Start: 03-27-2017 End: 03-28-2017 Patient encounter ROSALINDA ROSENBAUM Facility:[facility] Start: 02-26-2017 End: 02-27-2017 Patient encounter DORY TANANA Facility:[facility] Procedures Date Procedure Procedure Detail Performing Clinician Start: 11-17-2024 ALL CBC WITH AUTO DIFF Generic External Data Provider Start: 10-20-2024 ALL MAGNESIUM Generic E xternal Data Provider Start: 10-20-2024 ALL PHOSPHOROUS Generic External Data Provider Start: 10-20-2024 ALL URIC ACID Generic E xternal Data Provider Start: 10-20-2024 [facility] CMP (CMP) (FOR REMOTE [facility] USE) Generic External Data Provider Start: 10-20-2024 [...] [facility] CMP (CMP) (FOR REMOTE [facility] USE) Generic External Data Provider Start: [...] 11-29-2024 Influenza vaccination Influenza Vacc ine (#1) [facility] Start: 06-01-2024 End: 06-01-2024 Patient encounter procedure 06/01/2024 1:00 PM EST Office Visit [facility] [address] [facility] [address] [place] [id number] Ester Padilla PA [address] [place] [address] [place] [address] Arrived [facility] Comment on above: Arrived Start: 04-02-2024 Medicare Annual Well ness (AWV) Medicare Annual Wellness (AWV) [facility] Start: 11-30-2023 Influenza vaccination Influenza Vacc ine (#1) [facility] Start: 07-24-2023 Screening for malign ant neoplasm of breast Mammogram [facility] Start: 11-12-1975 Pneumococcal Vaccine : 65+ Years (1 of 2 - PCV) Pneumococcal Vaccine: 65+ Years (1 of 2 - PCV) [facility] Start: 1962 Pneumococcal Vaccine : 65+ Years (1 of 2 - PCV) Pneumococcal Vaccine: 65+ Years (1 of 2 - PCV) [facility] Start: 1956 Screening for malign ant neoplasm of colon [facility] Immunizations Immunization Date Immunization Notes Care Provider [facility] 02-19-2024 influenza, injectabl e, madin yaron canine kidney, preservative free Ester STEIN Work Phone: [facility] 02-19-2024 influenza virus vaccine, unspecified formulation Ester STEIN Work Phone: [facility] 01-10-2023 Influenza, Seasonal, Quadrivalent, Adjuvanted Generic Provider [facility] 01-10-2023 influenza virus vaccine, unspecified formulation Generic Provider [facility] 09-16-2022 zoster vaccine recombinant Generic Provider [facility] 07-22-2022 zoster vaccine recombinant Generic Provider [facility] 02-19-2022 Influenza, injectabl e, Madin [place] Canine Kidney, preservative free, quadrivalent Generic Provider [facility] 02-19-2022 SARS-COV-2 (COVID-19 ) vaccine, mRNA, spike protein, LNP, bivalent, PF Generic Provider [facility] 01-09-2021 influenza, seasonal, injectable Generic Provider [facility] 12-12-2019 influenza, injectabl e, quadrivalent, preservative free Generic Provider [facility] 12-26-2018 influenza, injectabl e, quadrivalent, contains preservative Generic Provider [facility] 01-21-2018 influenza, injectabl e, quadrivalent, contains preservative Generic Provider [facility] 12-29-2017 influenza, injectabl e, quadrivalent, preservative free Generic Provider [facility] 12-20-2016 influenza, injectabl e, quadrivalent, preservative free Generic Provider [facility] 12-02-2016 seasonal influenza, intradermal, preservative free Generic Provider [facility] 01-16-2015 influenza, injectabl e, quadrivalent, preservative free Generic Provider [facility] 03-16-2009 influenza virus vaccine, split virus (incl. purified surface antigen) Martha Guevara Other [facility] Other 03-16-2009 influenza virus vaccine, unspecified formulation [facility] Payers Date Payer Category Payer Medicare [employer] MEDICARE ADVANTAGE [facility]LY [facility] MEDICARE ADVANTAGE [id number] 2021-Present [address] [place] [id number] 2021 Medicare (Managed Care) [facility] ADVANTAGE [id number] 1959 [facility] [id number] [id number] 1959 Self-pay 1959 Unknown [id number] 1956 Unknown [id number] 2.16.840.1.541435.3.579. 2. 1956 Unknown [id number] 2.16.840.1.224041.3.579. 2.647 1956 Unknown [id number] 2.16.840.1.963274.3.579. 2. 1956 Unknown [id number] 2.16.840.1.877438.3.579. 2.647 1956 Unknown [id number] 2.16.840.1.734316.3.579. 2. 1956 Unknown [id number] 2.16.840.1.326345.3.579. 2. 1956 Unknown [id number] 2.16.840.1.749269.3.579. 2. 1956 Unknown [id number] 2.16.840.1.992558.3.579. 2.647 1956 Unknown [id number] 2.16.840.1.524205.3.579. 2. 1956 Unknown [id number] 2.16.840.1.909859.3.579. 2.647 1956 Unknown [id number] 2.16.840.1.298913.3.579. 2.647 1956 Unknown [id number] 2.16.840.1.566473.3.579. 2.647 1956 Unknown [id number] 2.16.840.1.268001.3.579. 2.593 1956 Unknown [id number] 2.16.840.1.067565.3.579. 2.593 1956 Unknown [id number] 2.16.840.1.026651.3.579. 2.593 1956 Unknown [id number] 2.16.840.1.681828.3.579. 2.593 1956 Unknown [id number] 2.16.840.1.864257.3.579. 2.593 1956 Unknown [id number] 2.16.840.1.636897.3.579. 2.593 1956 Unknown [id number] 2.16.840.1.072248.3.579. 2.593 1956 Unknown [id number] 2.16.840.1.372795.3.579. 2.593 1956 Unknown [id number] 2.16.840.1.728639.3.579. 2.593 1956 Unknown [id number] 2.16.840.1.999151.3.579. 2.593 1956 Unknown [id number] 2.16.840.1.902818.3.579. 2.593 1956 Unknown [id number] 2.16.840.1.155611.3.579. 2.593 1956 Unknown [id number] 2.16.840.1.281756.3.579. 2.593 1956 Unknown [id number] 2.16.840.1.115945.3.579. 2.593 1956 Unknown [id number] 2.16.840.1.816447.3.579. 2.593 1956 Unknown [id number] 2.16.840.1.149273.3.579. 2.1259 1956 Unknown [id number] 2.16.840.1.382643.3.579. 2.1259 Unknown [id number] 2.16.840.1.125378.3.579. 2.593 Unknown [place] BC/BS [id number] Social History Date Type Detail Facility Unknown if ever smoked [facility] Other Start: 09-02-2023 End: 06-01-2024 Sex Assigned At [facility] Other Start: 01-29-2023 End: 08-30-2023 Tobacco smoking status NHIS Never smoked tobacco (finding) [facility] Start: 1955 Sex Assigned At Female F [facility] Start: 01-29-2023 Tobacco use and exposure Smokeless tobacco non-user [facility] Start: 09-02-2023 End: 06-01-2024 Alcoholic beverage intake Lifetime non-drinker (finding) [facility] Start: 09-02-2023 End: 06-01-2024 History of Social function [facility] Start: 1955 Sex assigned at Not on file N [facility] Clinical Notes 11-10-2007 to 10-14-2024 Telephone Encounter - SARITA Mcrae - 10/14/2024 1:08 PM EDTTelephone Encounter - SARITA Mcrae - 10/14/2024 1:08 PM EDTSARITA Mcrae - 06/01/2024 1:00 PM EST Note Date & Type Note Facility 10-14-2024 Telephone encounter Note Refill request for paroxetine. Sent. [facility] 10-14-2024 Miscellaneous Notes Refill request for paroxetine. Sent. documented in this encounter [facility] 09-29-2024 Note Transplant Clinic Patient : Tanika [...] Continue meds and MONTHLY Labs with New [facility] standing Order given today. Follow up 6 months or sooner if needed. See Derm See PCP as scheduled: Dr Carroll. Magic Mouthwash script provided. Chart Review today: 03.17.23 Pt presents visit with . Pt states labs done Last week in [facility] and [place] calling for results. Pt seeing Derm in [place] for lesion: forearm and other lesions. Hx: [...] Hgb. Pt AGAIN instructed to use our [facility] Transplant standing order for her monthly labs. Pt reports B/P stable at home Discussed hydration PLan of Care: Continue meds and MONTHLY Labs with [facility] standing Order. Follow up 6 [...] 24-month everolimus study (more content not included)... [facility] 06-01-2024 History of Present illness Narrative [...] Do you have a medical power of activity therapist?: Yes Current Outpatient Medications on File Prior [...] and 3 tablets before bedtime. nystatin (Mycostatin) [id number] UNIT/ML suspension SWISH AND SWALLOW 5 MLS [...] level 01/29/2023 History of stress test Hypertension ([facility]) Joint contracture of foot, unspecified laterality 01/29/2023 Polycystic kidney 2013 Renal transplant recipient ([facility]) 01/29/2023 Past Surgical History: Procedure Laterality Date [...] disease) The patient is seeing a medical records manager for this condition, treatment is deferred to that specialist. Correspondence from that specialist and any available testing were reviewed during today's visit. 7. Joint contracture of foot, unspecified laterality This is a chronic medical condition that is stable since last assessment. No changes in treatment are suggested at this time. 8. Immunosuppression (CMS/HCC) The patient is seeing a medical records manager for this condition, treatment is deferred to that specialist. Correspondence from that specialist and any available testing were reviewed during today's visit. 9. Abnormal complete blood count The patient is seeing a medical records manager for this condition, treatment is deferred [...] (CMS/HCC) The patient is seeing a medical records manager for this condition, treatment is deferred to that specialist. Correspondence from that specialist and any available testing were reviewed during today's visit. Follow up in about 1 year (around 06/01/2025) for Medicare Wellness Visit. Ester CARRASCO PA-C documented in this encounter [facility] 04-01-2024 Note Transplant Clinic Patient [...] Continue meds and MONTHLY Labs with New [facility] standing Order given today. Follow up 6 months or sooner if needed. See Derm See PCP as scheduled: Dr Carroll. Magic Mouthwash script provided. Chart Review today: 03.17.23 Pt presents visit with . Pt states labs done Last week in [facility] and [place] calling for results. Pt seeing Derm in [place] for lesion: forearm and other lesions. Hx: [...] Hgb. Pt AGAIN instructed to use our [facility] Transplant standing order for her monthly labs. Pt reports B/P stable at home Discussed hydration PLan of Care: Continue meds and MONTHLY Labs with [facility] standing Order. Follow up 6 [...] study. <<<<<<<<<<<<<<<<<<<<<<<<<<<<<<<<< << (more content not included)... [facility] 12-18-2023 Note Will review by phone today with Dr. Negro Vivas tac level 3.9 for 2 consecutive months and if any dose changes, will notify this pt and amend this note. Most recent IR tacrolimus dosing on record is 0.5mg BID [facility] 12-09-2023 Note Prior auth for Mycop henolate was submitted via cm Approved- scanned into media Keycode: [id number] [facility] 11-26-2023 Note Prior auth submitted via [facility] PA Case: [id number], Status: Approved, Coverage Starts on: 08/27/2023 12:00:00 AM, Coverage Ends on: 11/25/2024 12:00:00 AM Keycode: [id number] [facility] 03-27-2023 Evaluation note Encounter Date Diagnosis Assessment Notes Feb, Contact with and (suspected) exposure to covid-19 (ICD-10 - Z20.822) Feb, Viral URI (ICD-10 - J06.9) Advised patient that COVID/Influenza A/B/RSV test and rapid Strep test was negative today. Advised patient that will treat as viral URI. Supportive care as directed, increase fluids and rest, Tylenol as directed, rx of [place], cool mist humidifier, throat lozenges. Discussed infection [...] condition. Feb, Sore throat (ICD-10 - J02.9) [facility] Other 10-15-2022 Evaluation note* Encounter Date Diagnosis [...] understanding and is agreeable with treatment plan [facility] Other 09-30-2022 Evaluation note* Encounter Date Diagnosis [...] no improvement in 2 to 3 days. [facility] Other 09-27-2022 Evaluation note* Encounter Date Diagnosis [...] treatment plan. Patient left in stable condition [facility] Other 07-30-2022 Evaluation note* Encounter Date Diagnosis [...] verbalizes understanding and agrees with treatment plan [facility] Other 05-17-2022 Evaluation note* Encounter Date Diagnosis [...] days July, Hematuria, unspecified (ICD-10 - R31.9) [facility] Other 08-12-2008 History general Narrative - Reported* Type Description Date Medical History PKD found in 1982 when she had a son Medical History hypertension Medical History kidney transplant Surgical History resection of superior cervical mass 11/10/07 Surgical History Teeth extraction in preparation for renal transplant Surgical History portacath placement Surgical History kidney transplant 2013 Hospitalization History see above [facility] Other [facility] Other Evaluation note* Diagnosis Onset Date Resolution Status Thrush, oral acute Sore throat noneactive [facility] Work Phone: Evaluation note* Diagnosis Medicare annual wellness visit, subsequent- Primary ACP (advance care planning) Other specified counseling Acute non-recurrent pansinusitis Acute bronchitis, unspecified organism Primary hypertension ([facility]/HCC) Unspecified essential hypertension PKD (polycystic kidney disease) Congenital polycystic kidney, unspecified type Joint contracture of foot, unspecified laterality Immunosuppression (CMS/HCC) Abnormal complete blood count Other abnormal blood chemistry Current moderate episode of major depressive disorder without prior episode (HCC) (CMS/HCC) Elevated alkaline phosphatase level Estrogen deficiency Other ovarian failure Generalized anxiety disorder (CMS/HCC) Generalized anxiety disorder Hypercholesteremia (CMS/HCC) Pure hypercholesterolemia Hypomagnesemia Disorders of magnesium metabolism Renal transplant recipient (CMS/[facility]) documented in this encounter [facility] Diagnosis Current moderate episode of major depressive disorder without prior episode (HCC) documented in this encounter [facility] [place]ative - [facility] Other Summary Purpose Family History Relationship Condition [...] and content) DATE CREATED AUTHOR 01/30/2018 [facility] DATE CREATED AUTHOR AUTHOR'S ORGANIZ ATION 08/17/2021 [facility] DATE CREATED AUTHOR AUTHOR'S ORGANIZ ATION 08/13/2022 [facility] DATE CREATED AUTHOR AUTHOR'S ORGANIZ ATION 06/03/2024 [facility] EPIC DATE CREATED AUTHOR AUTHOR'S ORGANIZ ATION 10/27/2024 [facility] REASON FOR VISIT (unrecogniz ed section [...] August 30, 2023 End: August 30, 2023 Junior Systems Engineer Relationship Specialty Start Date End Date Ramon Carroll MD [address] [place] [address] [place] [address] PCP - Amy FERREIRA 04/08/21 Ramon Carroll MD [address] [place] [address] PCP - General Internal Medicine 08/06/22 Junior Systems Engineer Relationship Specialty Start Date End Date Ramon Carroll MD [address] [place] [address] PCP - Amy FERREIRA 04/08/21 Ramon Carroll MD [address] [place] [address] PCP - General Internal Medicine 08/06/22 Junior Systems Engineer Relationship Specialty Start Date End Date Ramon Carroll MD [address] [place] [address] PCP - Amy FERREIRA 04/08/21 Ramon Carroll MD [address] [place] [address] PCP - General Internal Medicine 08/06/22 Junior Systems Engineer Relationship Specialty Start Date End Date Ramon Carroll MD [address] [place] [address] PCP - General Internal Medicine 08/06/22 Junior Systems Engineer Relationship Specialty Start Date End Date Ramon Carroll MD [address] [place] [address] PCP - Amy FERREIRA 04/08/21 Ramon Carroll MD [address] [place] [address] PCP - General Internal Medicine 08/06/22 Junior Systems Engineer Relationship Specialty Start Date End Date Ramon Carroll MD [address] [place] [address] PCP - Amy FERREIRA 04/08/21 Ramon Carroll MD [address] [place] [address] PCP - General Internal Medicine 08/06/22 Junior Systems Engineer Relationship Specialty Start Date End Date Ramon Carroll MD [address] [facility] [address] [place] [address] PCP - Amy PA 04/08/21 Ramon Carroll MD [address] [facility] [address] [place] [address] PCP - General Internal Medicine 08/06/22 Goals [...] BE BASED ON THE PRIMARY CLINICAL RECORDS. [facility]. provides no warranty or guarantee of the accuracy or completeness of information in this document.
[2024-12-20 07:33] LABS: Hematocrit 43.2 % (36.0-48.0); Hemoglobin 14.3 g/dL (12.0-16.0); Immature Granulocytes Abs Auto 0.03 10^3/uL (0.00-0.03); Immature Granulocytes Pct Auto 0.3 % (0.0-0.5); Lymphocytes Absolute Auto 1.4 10^3/uL (1.2-3.8); Mean Corpuscular HGB Conc 33.1 g/dL (29.9-35.2); Mean Corpuscular Hemoglobin 31.4 pg (26.7-34.0); Mean Corpuscular Volume 94.9 fL (81.0-99.0); Platelet Count 201 10^3/uL (150-450); Red Blood Count 4.55 10^6/uL (4.20-5.40); White Blood Count 9.2 10^3/uL (4.0-11.0)
[2024-12-20 08:32] LABS: Alanine Aminotransferase 19 U/L (14-59); Albumin Globulin Ratio 1.0; Albumin Level 3.6 g/dL (3.4-5.0); Alkaline Phosphatase 151 U/L (46-116); Anion Gap 12.1; Aspartate Amino Transferase 16 U/L (15-37); Blood Urea Nitrogen 14.0 mg/dL (7.0-18.0); Calcium 9.4 mg/dL (8.5-10.1); Carbon Dioxide 29.1 mmol/L (21.0-32.0); Chloride 105 mmol/L (98-107); Estimated GFR (African America >60 (>=60 mL/min/1.73m^2); Estimated GFR (Non-African Ame >60 (>=60 mL/min/1.73m^2); Globulin 3.7 g/dL; Glucose 90 mg/dL (74-106); Magnesium 2.1 mg/dL (1.8-2.4); Potassium 4.2 mmol/L (3.5-5.1); Sodium 142 mmol/L (136-145); Total Protein 7.3 g/dL (6.4-8.2); Uric Acid 4.9 mg/dL (2.6-6.0)
[2024-12-22 08:09] LABS: Tacrolimus (FK506), Blood 4.3 ng/mL (5.0-20.0)
== END 2024-12-20 06:45 | disposition home or self-care (01) ==
LOC: LAB 06:46
PROVIDERS: PCP Internal Medicine; Visit Provider Nurse Practitioner Family
DX: R73.01 Impaired fasting glucose (principal); Z94.0 Kidney transplant status
CPT/HCPCS: 36415; 80053; 80197; 82248; 83036; 83735; 84100; 84550; 85025

== ENCOUNTER 2025-01-17 06:38 | Outpatient (OUT) | payer MEDICARE, SELFPAY ==
--- OUTSIDE RECORDS SUMMARY | 2025-01-17 06:42 | XMS_ITS | Encounter Summary ---
Author Organization [facility] [place] [address] Care Team Providers Care Casino Accountant Name Role Phone Ramon Carroll MD Primary Care Provider [phone] Virgil Haynes CNP Unavailable [phone] Encounter Details Date Type Department Care Team (Late st Contact Info) Description 02/19/2022 Orders Only [facility] Transplant [address] [place] [id number] Betty Smith MA Aftercare following organ transplant (Primary Dx) Social History Tobacco Use Types Packs/Day Years [...] Info) Description 04/06/2025 9:30 AM EST Follow-Up [facility] Transplant [address] [place] [phone] Alfredo Singh CNP [address] [place] [address] Scheduled Orders Name Type Priority Associated Diagnoses Orde r Schedule Tacrolimus level Lab Routine Aftercare following organ transplant Expected: 03/07/2022 (Approximate), Expires: 02/19/2023 documented as of this encounter Visit Diagnoses Diagnosis Aftercare following organ transplant- Primary documented in this encounter Care Teams Casino Accountant Relationship Specialty Start Date End Date Ramon Carroll MD [address] [facility] [address] [place] [address] PCP - General 01/19/22 Virgil Haynes, CAROL[place] [address] [facility] [address] [place] [address] Nurse Practitioner Urology 03/19/22 documented as of this encounter
--- OUTSIDE RECORDS SUMMARY | 2025-01-17 06:42 | XMS_ITS | Encounter Summary ---
Author Organization [facility] Address [address] [place] [address] Care Team Providers Care Ordnance Engineering Technician Name Role Phone Ramon Carroll MD Unavailable [phone] Ramon Carroll MD Primary Care Provider [phone] Encounter Details Date Type Department Care Team (Late st Contact Info) Description 02/11/2024 Clinisync Result Encounter [facility] External Department Unsolicited Ramon Carroll MD [address] [facility] [address] [place] [address] Social History Tobacco Use Types Packs/Day Years [...] EST Narrative 02/11/2024 9:09 AM EST [facility] [place] [id number] Mammography Report Signed Patient: TANIKA JENKINS MR#: [id number] : 1955 Acct:[id number] Age/Sex: 68 / F ADM Date: 02/11/24 Loc: MAMMO Attending Dr: RAMON CARROLL Ordering Physician: RAMON CARROLL Results: Date of Service: 02/11/24 Follow Up: Procedure(s): MM tomosynthesis screening BI Accession Number(s): [id number] cc: RAMON CARROLL Patient Name: TANIKA JENKINS MR#: [id number] : 1955 Exam Date: 02/11/2024 Ordering Doctor: [...] Treatments None Family Cancers None LOCATION: [facility] BREAST COMPOSITION: The breasts are extremely dense, [...] M.D. Signed By: 02/11/24908 DD/ 7 TD/TT: Computer Network Support Specialist: Procedure Note Radiology, Radiologist, - 02/11/2024 [facility] [place] [id number] Mammography Report Signed Patient: TANIKA JENKINS LMR#: [id number] : 1955cct:[id number] Age/Sex: 68 / FADM Date: 02/11/24 Loc: MAMMO Attending Dr: RAMON CARROLL Ordering Physician: RAMON CARROLLResults: Date of Service: 02/11/24Follow Up: Procedure(s): MM tomosynthesis screening BI Accession Number(s): [id number] cc: UZMAOLIVERAMON Patient Name: TANIKA JENKINS MR#: [id number] : 1955 Exam Date: 02/11/2024 Ordering Doctor: [...] Treatments None Family Cancers None LOCATION: [facility] BREAST COMPOSITION: The breasts are extremely dense, [...] Bass M.D. Signed By:02/11/24908 DD/ 7 TD/TT: Computer Network Support Specialist: Ramon Carroll MD [facility] Final Result documented in this encounter Visit Diagnoses Not on filedocumented in this encounter Additional Health Concerns Assessment Noted Time PHQ-9 Depression Total Score: 1 01/31/20 23 8:00 AM EDT documented as of this encounter Care Teams Ordnance Engineering Technician Relationship Specialty Start Date End Date Ramon Carroll MD [address] [facility] [address] [place] [address] PCP - Amy FERREIRA 04/08/21 Ramon Carroll MD [address] [facility] [address] [place] [address] PCP - General Internal Medicine 08/06/22 documented as of this encounter
--- OUTSIDE RECORDS SUMMARY | 2025-01-17 06:42 | XMS_ITS | Encounter Summary ---
Author Organization [facility] Address [address] [facility] [place] [address] Care Team Providers Care Tram Operator Name Role Phone Ramon Carroll MD Unavailable [phone] Ramon Carroll MD Primary Care Provider [phone] Encounter Details Date Type Department Care Team (Late st Contact Info) Description 09/23/2022 Abstract [facility] [place] [facility] [address] [facility] [address] [place] [id number] Ramon Carroll MD [address] [place] [address] [place] [address] Social History Tobacco Use Types Packs/Day Years [...] on filedocumented in this encounter Care Teams Tram Operator Relationship Specialty Start Date End Date Ramon Carroll MD [address] [place] [address] PCP - Amy FERREIRA 04/08/21 Ramon Carroll MD [address] [place] [address] PCP - General Internal Medicine 08/06/22 documented as of this encounter
--- OUTSIDE RECORDS SUMMARY | 2025-01-17 06:42 | XMS_ITS | Encounter Summary ---
Author Organization [facility] Address [address] [facility] [place] [address] Care Team Providers Care Service Observer Chief Name Role Phone Ramon Carroll MD Unavailable [phone] Ramon Carroll MD Primary Care Provider [phone] Encounter Details Date Type Department Care Team (Late st Contact Info) Description 02/03/2023 Abstract [facility] [place] [facility] [address] [place] [address] [place] [address] Ramon Carroll MD [address] [place] [address] [place], [place] [id number] Social History Tobacco Use Types Packs/Day Years [...] documented as of this encounter Care Teams Service Observer Chief Relationship Specialty Start Date End Date Ramon Carroll MD [address] [place] [address] [place], [place] [address] PCP - Amy FERREIRA 04/08/21 Ramon Carroll MD 112 [facility] 110 [place] [id number] PCP - General Internal Medicine 08/06/22 documented as of this encounter
--- OUTSIDE RECORDS SUMMARY | 2025-01-17 06:42 | XMS_ITS | Encounter Summary ---
Author Organization [facility] Address [address] [facility] [place] [address] Care Team Providers Care Tripe Cooker Name Role Phone Ramon Carroll MD Unavailable [phone] Ramon Carroll MD Primary Care Provider [phone] Encounter Details Date Type Department Care Team (Late st Contact Info) Description 03/28/2023 Abstract [facility] [place] [facility] [address] [place] [address] [place] [address] Ramon Carroll MD [address] [place] [address] [place], [place] [address] Social History Tobacco Use Types Packs/Day Years [...] documented as of this encounter Care Teams Tripe Cooker Relationship Specialty Start Date End Date Ramon Carroll MD [address] [place] [address] [place], [place] [id number] PCP - Amy FERREIRA 04/08/21 Ramon Carroll MD [address] [facility] [address] [place] [id number] PCP - General Internal Medicine 08/06/22 documented as of this encounter
--- OUTSIDE RECORDS SUMMARY | 2025-01-17 06:42 | XMS_ITS | Encounter Summary ---
Author Organization [facility] Address [address] [facility] [place] [address] Care Team Providers Care Parachute Crown Sewer Name Role Phone Ramon Carroll MD Unavailable [phone] Ramon Carroll MD Primary Care Provider [phone] Encounter Details Date Type Department Care Team (Late st Contact Info) Description 04/09/2023 Abstract [facility] [place] [facility] [address] [place] [address] [place] [address] Ramon Carroll MD [address] [place], [place] [address] Social History Tobacco Use Types Packs/Day Years [...] documented as of this encounter Care Teams Parachute Crown Sewer Relationship Specialty Start Date End Date Ramon Carroll MD [address] [place] [address] [place], [place] [address] PCP - Amy FERREIRA 04/08/21 Ramon Carroll MD 112 [facility] 110 [place] [phone] PCP - General Internal Medicine 08/06/22 documented as of this encounter
--- OUTSIDE RECORDS SUMMARY | 2025-01-17 06:42 | XMS_ITS | Clinical Summary ---
Author Organization [facility] Address [id number] [address] [place] [address] Care Team Providers Care Fisher Pot Name Role Phone Ramon Carroll MD Primary Care Provider [phone] Allergies No known active allergies Medications magnesium [...] Insurance [employer] Care Teams Fisher Pot Relationship Specialty Start Date End Date Ramon Carroll MD [address], [place] [address] [place] [address] PCP - General Internal Medicine 01/25/18
--- OUTSIDE RECORDS SUMMARY | 2025-01-17 06:42 | XMS_ITS | Encounter Summary ---
Author Organization [facility] Address [address] [place] [address] Care Team Providers Care Trackmobile Operator Name Role Phone Ramon Carorll MD Primary Care Provider [phone] Virgil Haynes CNP Unavailable [phone] Reason for Visit * Reason Comments Med Refill Encounter Details Date Type Department Care Team (Late st Contact Info) Description 01/20/2023 Refill [facility] Urology [address] [facility] [address] [place] [address] Anthony Kunz MD [address] [place] [address] History of kidney transplant Social [...] Info) Description 04/06/2025 9:30 AM EST Follow-Up [facility] Transplant [address] [place] [address] Alfredo Singh CNP [address] [place], [place] [address] documented as of this encounter Visit Diagnoses Diagnosis History of kidney transplant Kidney replaced by transplant documented in this encounter Care Teams Trackmobile Operator Relationship Specialty Start Date End Date Ramon Carroll MD 112 [facility] 110 [place] [address] PCP - General 01/19/22 Virgil Haynes, CAROL[place] 112 [facility] 110 [place] [address] Nurse Practitioner Urology 03/19/22 documented as of this encounter
--- OUTSIDE RECORDS SUMMARY | 2025-01-17 06:42 | XMS_ITS | Encounter Summary ---
Author Organization [facility] Address [address] [facility] [place] [address] Care Team Providers Care Shiatsu Therapist Name Role Phone Ramon Carroll MD Unavailable [phone] Ramon Carroll MD Primary Care Provider [phone] Encounter Details Date Type Department Care Team (Late st Contact Info) Description 10/30/2023 Orders Only [facility] [place] [facility] [address] [place] [address] [place] [address] Daniela Chirinos LPN [address] [address] Estrogen deficiency Social History Tobacco Use Types [...] documented as of this encounter Care Teams Shiatsu Therapist Relationship Specialty Start Date End Date Ramon Carroll MD [address] [place] [address] [place] [address] PCP - Amy FERREIRA 04/08/21 Ramon Carroll MD 112 [facility] 110 [place] [phone] PCP - General Internal Medicine 08/06/22 documented as of this encounter
--- OUTSIDE RECORDS SUMMARY | 2025-01-17 06:42 | XMS_ITS ---
Author Organization [facility] Address [address] [place] [address] Care Team Providers Care News Specialist Name Role Phone Ramon Carroll MD Primary Care Provider [phone] Virgil Haynes CNP Unavailable [phone] Transplant Episode Kidney Recipient [facility] ([place], [place]) - [facility] Organ Received: Left Kidney Transplanted on 01/21/2013 Marked as Active Follow-up on 01/21/2013 Kidney CoordinatorMeenakshi Turner RN Phone: N/A Fax: N/A Email: N/A [place] Organ Diagnosis Organ Primary Contributory Kidney Polycystic [...] N/ A Britton Raza MD Surgeon N/A [phone] N/A Events Post-Transplant Pre-Transplant Admitted: 01/20/2013 Referred: 12/21/2009 Transplanted: 01/21/2013 Evaluation began: 1 Discharged: 01/26/2013 Center waitlisted: 1
--- OUTSIDE RECORDS SUMMARY | 2025-01-17 06:42 | XMS_ITS | Clinical Summary ---
Author Organization [facility] Healthcare Address [address] [place] [address] Care Team Providers Care Human Resources Specialist Name Role Phone Ramon Carroll MD Unavailable [phone] Ramon Carroll MD Primary Care Provider [phone] Allergies No known active allergies Medications amLODIPine [...] MG tablet Daily 08/30/2023 Active nystatin (Mycostatin) [id number] UNIT/ML suspensionIndic ations:Thrush, oral SWISH AND SWALLOW [...] Encounters Date Type Department Care Team Description 12/20/2024 Clinisync Result Encounter [facility] External Department Unsolicited Provider, Generic External Data 11/17/2024 Clinisync Result Encounter [facility] External Department [...] Associated Diagnosis Comments TACROLIMUS (FK506), BLOOD Routine 12/20/2024 7:00 AM EDT METRO BILIRUBIN, DIRECT Routine 12/20/2024 7:00 AM EDT ALL MAGNESIUM Routine 12/20/2024 7:00 AM EDT ALL PHOSPHOROUS Routine 12/20/2024 7:00 AM EDT ALL URIC ACID Routine 12/20/2024 7:00 AM EDT [facility] CMP (CMP) (FOR REMOTE [facility] USE) Routine 12/20/2024 7:00 AM EDT MLR HEMOGLOBIN A1C Routine 12/20/2024 7: 00 AM EDT ALL CBC WITH AUTO DIFF Routine 7:00 AM EDT TACROLIMUS (FK506), BLOOD Routine 11/17/2024 6:57 AM EDT BKV QUANT PCR Routine 11/17/2024 6:57 AM EDT ALL LIPID PROFILE (FASTING) Routine 11/17/2024 6:57 AM EDT METRO BILIRUBIN, DIRECT Routine 11/17/2024 6:57 AM EDT ALL MAGNESIUM Routine 11/17/2024 6:57 AM EDT ALL PHOSPHOROUS Routine 11/17/2024 6:57 AM EDT ALL URIC ACID Routine 11/17/2024 6:57 AM EDT [facility] CMP (CMP) (FOR REMOTE [facility] USE) Routine 11/17/2024 6:57 AM EDT MLR [...] AM EDT [facility] CMP (CMP) (FOR REMOTE [facility] USE) Routine 10/20/2024 7:01 AM EDT MM TOMOSYNTHESIS SCREENING BI 02/11/2024 9:08 AM EST LAB COLOGUARD COLON CANCER SCREEN Routine 02/14/2023 1:15 PM EST Screening for colorectal cancer from Last 3 Months or Most Recently Relevant to Health Maintenance Results * (ABNORMAL) TACROLIMUS (FK506), BLOOD (12/20/2024 7:00 AM EDT) Only the most recent of3 resultswithin the time period is included. TACROLIMUS (FK506), BLOOD 4.3(A) 5.0 - 20.0 ng/mL [facility] Comment: This test was developed and its performance characteristics determined by [facility] [employer]. It has not been cleared or approved [...] ng/mL Performed by LC-MS/MS technology. Performed at: [address] [id number] Admissions Recruiter: Marizol Singleton MD, Phone: [phone] 12/20/2024 7:00 AM EDT 12/20/2024 7:01 AM EDT Narrative CLINISYNC - 12/22/2024 8:09 AM EDT Generic External Data Provider LAB BLOOD ORDERAB LES Final Result Performing Organization Address [facility]/ZIP Co de Phone Number [facility] * MLR HEMOGLOBIN A1C (12/20/2024 7:00 AM EDT) Only the most recent of2 resultswithin the time period is included. GLYCOHEMOGLOBIN A1C 5.3 4.5 - 6.2 % TB Comment: ADA RECOMMENDED LIMIT 4.0 - 6.0 ADA THERAPEUTIC TARGET < 7.0 ACTION SUGGESTED > 7.0 ESTIMATED AVERAGE GLUCOSE 105 mg/dL TB 12/20/2024 7:00 AM EDT 12/20/2024 7:01 AM EDT Narrative CLINISYNC - 12/20/2024 7:49 AM EDT Generic External Data Provider CLINISYNC F inal Result Performing Organization Address City/[facility]/ZIP Co de Phone Number [facility] * METRO BILIRUBIN, DIRECT (12/20/2024 7:00 AM EDT) Only the most recent of3 resultswithin the time period is included. BILIRUBIN DIRECT 0.2 0.0 - 0.2 mg/dL TB 12/20/2024 7:00 AM EDT 12/20/2024 7:01 AM EDT Narrative CLINISYNC - 12/20/2024 8:35 AM EDT Generic External Data Provider CLINISYNC F inal Result CLINISYNC TB * (ABNORMAL) [facility] CMP (CMP) (FOR REMOTE [facility] USE) (12/20/2024 7:00 AM EDT) Only the most recent of3 resultswithin the time period is included. SODIUM 142 136 - 145 mmol/L TBH POTASSIUM 4.2 3.5 - 5.1 mmol/L TBH CHLORIDE 105 98 - 107 mmol/L TBH CARBON DIOXIDE 29.1 21.0 - 32.0 mmol/L TBH ANION GAP 12.1 TBH GLUCOSE 90 74 - 106 mg/dL TBH BLOOD UREA NITROGEN 14.0 7.0 - 18.0 mg/dL TBH CREATININE 0.92 0.55 - 1.02 mg/dL TBH TBH EGFR-AF LIBYAN >60 >=60 mL/min/1. 73m 2 TBH TBH EGFR-NON AF LIBYAN >60 >=60 mL/min/1. 73m 2 TBH BUN CREATININE RATIO 15.2 TBH CALCIUM 9.4 8.5 - 10.1 mg/dL TBH BILIRUBIN TOTAL 0.7 0.2 - 1.0 mg/dL TBH ASPARTATE AMINO TRANSFERASE 16 15 - 37 U/L TBH ALANINE AMINOTRANSFERASE 19 14 - 59 U/L TBH ALKALINE PHOSPHATASE 151(H) 46 - 116 U/L TBH TOTAL PROTEIN 7.3 6.4 - 8.2 g/dL TBH ALBUMIN LEVEL 3.6 3.4 - 5.0 g/dL TBH GLOBULIN 3.7 g/dL TBH ALBUMIN GLOBULIN RATIO 1.0 TBH 12/20/2024 7:00 AM EDT 12/20/2024 7:01 AM EDT Narrative CLINISYNC - 12/20/2024 8:35 AM EDT Generic External Data Provider MICHELINEISYNC F inal Result CLINISYNC TB * ALL URIC ACID (12/20/2024 7:00 AM EDT) Only the most recent of3 resultswithin the time period is included. URIC ACID 4.9 2.6 - 6.0 mg/dL TBH 12/20/2024 7:00 AM EDT 12/20/2024 7:01 AM EDT Narrative CLINISYNC - 12/20/2024 8:35 AM EDT Generic External Data Provider CLINISYNC F inal Result Performing Organization Address [facility] Co de Phone Number CLINISYIA TB * ALL PHOSPHOROUS (12/20/2024 7:00 AM EDT) Only the most recent of3 resultswithin the time period is included. PHOSPHORUS 3.1 2.6 - 4.7 mg/dL TBH 12/20/2024 7:00 AM EDT 12/20/2024 7:01 AM EDT Narrative CLINISYNC - 12/20/2024 8:35 AM EDT Generic External Data Provider CLINISYNC F inal Result Performing Organization Address [facility] de Phone Number CLINISYNC TB * ALL MAGNESIUM (12/20/2024 7:00 AM EDT) Only the most recent of3 resultswithin the time period is included. MAGNESIUM 2.1 1.8 - 2.4 mg/dL TBH 12/20/2024 7:00 AM EDT 12/20/2024 7:01 AM EDT Narrative CLINISYNC - 12/20/2024 8:35 AM EDT Generic External Data Provider CLINISYNC F inal Result Performing Organization Address City/[facility] Co de Phone Number CLINISYNC TB * (ABNORMAL) ALL CBC WITH AUTO DIFF (12/20/2024 7:00 AM EDT) Only the most recent of3 resultswithin the time period is included. [facility] TB WBC 9.2 4.0 - 11.0 10 3/uL TBH TBH RBC 4.55 4.20 - 5.40 10 6/uL TBH TBH HGB 14.3 12.0 - 16.0 g/dL TBH TBH HCT 43.2 36.0 - 48.0 % TBH TBH MCV 94.9 81.0 - 99.0 fL TBH TBH MCH 31.4 26.7 - 34.0 pg TBH TBH MCHC 33.1 29.9 - 35.2 g/dL TBH TBH RDW 14.6 11.0 - 15.0 % TBH TBH PLT 201 150 - 450 10 3/uL TBH TBH MPV 11.2 9.5 - 13.5 fL TBH NEUTROPHILS PERCENT AUTO 72.9 43.0 - 75.0 % TBH LYMPHOCYTES PERCENT AUTO 15.2(L) 20.5 - 60.0 % TBH MONOCYTES PERCENT AUTO 10.1 1.7 - 12.0 % TBH TBH EO % 1.3 0.9 - 7.0 % TBH BASOPHILS PERCENT AUTO 0.2 0.2 - 2.0 % TBH IMMATURE GRANULOCYTES PCT AUTO 0.3 0.0 - 0.5 % TBH NEUTROPHILS ABSOLUTE AUTO 6.7(H) 1.4 - 6.5 10 3/uL TBH LYMPHOCYTES ABSOLUTE AUTO 1.4 1.2 - 3.8 10 3/uL TBH MONOCYTES ABSOLUTE AUTO 0.9(H) 0.3 - 0.8 10 3/uL TBH TBH EO # 0.1 0.0 - 0.7 10 3/uL TBH BASOPHILS ABSOLUTE AUTO 0.0 0.0 - 0.1 10 3/uL TBH IMMATURE GRANULOCYTES ABS AUTO 0.03 0.00 - 0.03 10 3/uL TBH 12/20/2024 7:00 AM EDT 12/20/2024 7:01 AM EDT Narrative CLINISYNC - 12/20/2024 7:36 AM EDT us Generic External Data Provider [facility] F inal Result [facility] * BKV QUANT PCR (11/17/2024 6:57 AM EDT) BKV DNA, QUANT PCR, PLASMA Negative Negative IU/mL TB Comment: No BK DNA detected. The linear range of the assay is 22 - 100,000,000 IU/mL. Performed at: [address] [id number] Admissions Recruiter: Real Chaparro PhD, Phone: [phone] [id number] BKV DNA,PLASMA TNP . TB 11/17/2024 6:57 AM EDT 11/17/2024 6:59 AM EDT Narrative CLINISYNC - 11/18/2024 5:08 PM EDT Generic External Data Provider LAB BLOOD ORDERAB LES Final Result Performing Organization Address [facility]/ZIP Co de Phone Number [facility] * ALL LIPID PROFILE (FASTING) (11/17/2024 6:57 AM EDT) Pathologist [facility] TRIGLYCERIDES 92 <=150 mg/dL TBH CHOLESTEROL 122 <=200 mg/dL TB HDL CHOLESTEROL 45 40 - 60 mg/dL TB Comment: > or =60 mg/dl - LOW CARDIOVASCULAR RISK <40 mg/dl - HIGH CARDIOVASCULAR RISK LDL CHOLESTEROL CALCULATED 58.6 mg/dL [facility] Comment: <100 mg/dl OPTIMAL 100-129 mg/dl NEAR OR ABOVE OPTIMAL 130-159 mg/dl BORDERLINE HIGH 160-189 mg/dl HIGH >190 mg/dl VERY HIGH VLDL CHOLESTEROL 18.4 mg/dL [facility] CHOL HDL RATIO 2.7 [facility] Comment: 3.3 - 4.4 LOW RISK 4.4 - 7.1 AVERAGE RISK 7.1 - 11.0 MODERATE RISK >11.0 HIGH RISK 11/17/2024 6:57 AM EDT 11/17/2024 6:59 AM EDT Narrative CLINISYNC - 11/17/2024 10:13 AM EDT Generic External Data Provider CLINISYNC F inal Result Performing Organization Address City/[facility]/ZIP Co de Phone Number CLINISYNC TBH * MM TOMOSYNTHESIS SCREENING BI (02/11/2024 9:08 AM EST) Anatomical Region Laterality Modality Other 02/11/2024 9:08 AM EST Narrative 02/11/2024 9:09 AM EST The [address] [address] Mammography Report Signed Patient: TANIKA JENKINS MR#: [id number] : 1955 Acct:[id number] Age/Sex: 68 / F ADM Date: 02/11/24 Loc: MAMMO Attending Dr: RAMON CARROLL Ordering Physician: RAMON CARROLL Results: Date of Service: 02/11/24 Follow Up: Procedure(s): MM tomosynthesis screening BI Accession Number(s): [id number] cc: RAMON CARROLL Patient Name: TANIKA JENKINS MR#: [id number] : 1955 Exam Date: 02/11/2024 Ordering Doctor: [...] Treatments None Family Cancers None LOCATION: [facility] BREAST COMPOSITION: The breasts are extremely [...] Dictated By: Glenroy Bass M.D. Signed By: 02/11/24 0909 DD/ 7 TD/TT: Search Engine Marketing Specialist: Procedure Note Radiology, Radiologist, - 02/11/2024 The [place] [id number] Mammography Report Signed Patient: TANIKA JENKINS LMR#: [id number] : 7Acct:[id number] Age/Sex: 68 / FADM Date: 02/11/24 Loc: MAMMO Attending Dr: RAMON CARROLL Ordering Physician: RAMON CARROLLResults: Date of Service: 02/11/24Follow Up: Procedure(s): MM tomosynthesis screening BI Accession Number(s): [id number] cc: RAMON CARROLL Patient Name: TANIKA JENKINS MR#: [id number] : 1955 Exam Date: 02/11/2024 Ordering Doctor: [...] Treatments None Family Cancers None LOCATION: [facility] BREAST COMPOSITION: The breasts are extremely [...] 09:08 Dictated By: Glenroy Bass M.D. Signed By:02/11/2409 DD/ 7 TD/TT: Search Engine Marketing Specialist: Ramon Carroll MD [facility] IMAGING Final Result * Cologuard?? colon cancer screening (02/14/2023 1:15 PM EST) NONINV COLON CA DNA+OCC BLD SCRN STL-IMP Negative Negative 02/24/2023 5:35 PM EST [facility] (CLIA #:[id number]) Comment: NEGATIVE TEST RESULT. A negative Cologuard [...] Mackenzie et al, N Engl J Med 2014;370(14):2457-6471) The normal value (reference range) for this assay is negative. COLOGUARD RE-SCREENING RECOMMENDATION: Periodic colorectal cancer screening is an important part of preventive healthcare for asymptomatic individuals at average risk for colorectal cancer. Following a negative Cologuard result, the [place] Cancer Society and U.S. Multi-Society Task Force screening guidelines recommend a Cologuard re-screening interval of 3 years. References: [place] [employer] Guideline for Colorectal Cancer Screening: https://www.cancer.org/cancer/gffoq-zprebw-rgmuck/wfgvvdnep-ccymqjtav-adnfsmh/ac s-rec ommendations.html.; Vinnie COPELAND, David CR, Robert ReisK, Colorectal Cancer Screening: Recommendations for Physicians and Patients from the U.S. Multi-Society Task Force on Colorectal Cancer Screening , Am J Gastroenterology 2017; 112:9120-5545. TEST DESCRIPTION: Composite algorithmic analysis of stool [...] (Jhon Corado al, N Engl J Med 2014;370(14):8010-8533.) Cologuard may produce a false negative or false positive result (no colorectal cancer or precancerous polyp present at colonoscopy follow up). A negative Cologuard test result does not guarantee the absence of CRC or advanced adenoma (pre-cancer). The current Cologuard screening interval is every 3 years. ([place] Cancer Society and U.S. Multi-Society Task Force). Cologuard performance data in a 10,000 patient pivotal study using colonoscopy as the reference method can be accessed at the following location: www.Par[employer]/results. Additional description of the Cologuard test process, warnings and precautions can be found at www.cologuard.com. Stool specimen (specimen) 02/14/2023 1:15 PM EST 02/15/2023 5:51 PM EST us Ramon Carroll MD LAB MOLECULAR DIAGNOSTICS [facility] Final Result [employer] (CLIA #:[id number]) [address] [place] [phone], [facility] (CLIA #:[id number]) [address] [place] [phone] from Last 3 Months or Most Recently Relevant to Health Maintenance Insurance [employer] MED[employer]ARE ADVANTAGE Care Teams Human Resources Specialist Relationship Specialty Start Date End Date Ramon Carroll MD [address] [facility] [address] [place] [address] PCP - Amy FERREIRA 04/08/21 Ramon Carroll MD [address] [facility] [address] [place] [address] PCP - General Internal Medicine 08/06/22
--- OUTSIDE RECORDS SUMMARY | 2025-01-17 06:42 | XMS_ITS | Clinical Summary ---
Author Organization [facility] Address [address] [place] [address] Care Team Providers Care Insulation Mechanic Name Role Phone Ramon Carroll MD Primary Care Provider [phone] Virgil Haynes CNP Unavailable [phone] Allergies No known active allergies Medications potassium [...] baclofen (Lioresal) 10 mg tablet 3 Active amLODIPine (Norvasc) 5 mg tabletIndications: Hypertension, unspecified type Take 1 tablet (5 mg) by mouth in the morning. 90 tablet 3 5 Active spironolactone (Aldactone) 25 mg tabletIndications: Immunosuppression Take 1 tablet (25 mg) by mouth in the morning. 90 tablet 3 5 09/30/19 26 Active atorvastatin (Lipitor) 20 mg tabletIndications: Hyperlipidemia, unspecified hyperlipidemia type Take 1 tablet (20 mg) by mouth at bedtime. 90 tablet 3 5 09/30/19 26 Active mycophenolate (Myfortic) 180 mg EC tabletIndications: Immunosuppression Take 3 tablets (540 mg) by mouth two times daily. 240 tablet 4 5 Active tacrolimus (Prograf) 0.5 mg capsuleIndications :History of kidney transplant Take 1 capsule (0.5 mg) by mouth two times daily. TAKE 1 CAPSULE BY MOUTH EVERY MORNING AND 1 EVERY NIGHT AT BEDTIME 60 capsule 11 5 Active tacrolimus (Prograf) 0.5 mg capsuleIndications :History of kidney transplant TAKE 1 CAPSULE BY MOUTH EVERY MORNING AND 1 EVERY NIGHT AT BEDTIME 60 capsule 11 4 01/11/20 25 Discontin ued(Reord er) Active Problems No known active problems Encounters Date Type Department Care Team Description 01/10/2025 Refill [facility] Transplant [address] [place] [phone] Leah Salinas MA History of kidney transplant from Last 3 Months Family History Relation Name Status Comments Father Mother Social History Tobacco Use Types Packs/Day Years Used Date Smoking Tobacco: Never Smokeless Tobacco: Never Tobacco Cessation:Counseling Given: Not Answered Alcohol Use Standard Drinks/Week Comments Never 0 (1 standard drink = 0.6 oz pur e alcohol) PHQ-2 Answer Date Recorded Patient Health Questionnaire-2 Score 0 09/29/2024 DC Safety & Environment Answer Date Rec orded [...] Info) Description 04/06/2025 9:30 AM EST Follow-Up [facility] Transplant [address] [place] [address] Savzyan, Alfredo, DISULFURIZER TENDER [address] [place] [address] Health Maintenance Due Date Last Done Comments CT Colonography 1955 Colonoscopy 1955 FOBT 1955 Medicare Annual Wellness (AWV) 1955 Sigmoidoscopy 1955 Pneumococcal Vaccine: 50+ Years (1 of 2 - PCV) 11/12/1975 Adult Tetanus 1978 FIT 02/15/2024 02/14/2023 Mammogram 07/23/2024 07/23/2022 COVID-19 Vaccine ( season) 2024 02/19/2022, 03/28/2021, 06/07/2020 Influenza Vaccine [...] on patient's age to complete this topic Insurance [facility] MEDICARE ADVANTAGE [facility] MEDICARE ADVANTAGE Care Teams Insulation Mechanic Relationship Specialty Start Date End Date Ramon Carroll MD [address] [place] [address] [place] [address] PCP - General 01/19/22 Virgil Haynes CNP [address] [place] [address] [place] [address] Nurse Practitioner Urology 03/19/22
--- OUTSIDE RECORDS SUMMARY | 2025-01-17 06:42 | XMS_ITS | Encounter Summary ---
Author Organization [facility] Address [address] [facility] [place] [address] Care Team Providers Care Truck Hop Name Role Phone Ramon Carroll MD Unavailable [phone] Ramon Carroll MD Primary Care Provider [phone] Encounter Details Date Type Department Care Team (Late st Contact Info) Description 06/01/2024 Abstract [facility] [facility] [address] [facility] [address] [place] [id number] Ramon Carroll MD [address] [facility] [address] [place] [address] Social History Tobacco Use Types Packs/Day Years [...] usual. Not at all 06/01/2024 12:00 PM Aunshka Ulloa LPN Thoughts that you would be [...] documented as of this encounter Care Teams Truck Hop Relationship Specialty Start Date End Date Ramon Carroll MD [address] [facility] [address] [place] [address] PCP - Amy FERREIRA 04/08/21 Ramon Carroll MD [address] [facility] [address] [place] [address] PCP - General Internal Medicine 08/06/22 documented as of this encounter
--- OUTSIDE RECORDS SUMMARY | 2025-01-17 06:43 | XMS_ITS | CCD ---
Author Organization [facility] Care Team Providers Care Paster Operator Name Role Phone HOLY CROSS, DINKAR Unavailable Unavailable HOLY CROSS, DINKAR Unavailable Unavailable CARROLL, RAMON Unavailable Unavailable [...] Attending Unavailable MISC, DR OBRIEN Admitting Unavailable HOLY CROSS, DR CONNORS Consulting Unavailable CARROLL, DR DARBY Primary Care Unavailable MISC, DR OBRIEN Attending Unavailable MISC, DR OBRIEN Admitting Unavailable MISC, DR OBRIEN Attending Unavailable MISC, DR OBRIEN Admitting Unavailable MISC, DR OBRIEN Consulting Unavailable CARROLL, DR DARBY Primary Care Unavailable HOLY CROSS, DR CONNORS Consulting Unavailable HOLY CROSS, DR CONNORS Attending Unavailable CARROLL, DR DARBY Primary Care Unavailable HOLY CROSS, DR CONNORS Admitting Unavailable HOLY CROSS, DR CONNORS Attending Unavailable CARROLL, DR DARBY Primary Care Unavailable HOLY CROSS, DR CONNORS Admitting Unavailable HOLY CROSS, DR CONNORS Consulting Unavailable MISC, DR OBRIEN [...] Unavailable CARROLL, DR DARBY Primary Care Unavailable HOLY CROSS, DR CONNORS Consulting Unavailable HOLY CROSS, DR CONNORS Attending Unavailable CARROLL, DR DARBY Primary Care Unavailable HOLY CROSS, DR CONNORS Admitting Unavailable MISC, DOCTOR Attending Unavailable MISC, DR OBRIEN Admitting Unavailable MISC, DR OBRIEN Consulting Unavailable CARROLL, DR DARBY Primary Care Unavailable MISC, DOCTOR Attending Unavailable MISC, DR OBRIEN Admitting Unavailable MISC, DR OBRIEN Consulting Unavailable CARROLL, DR DARBY Primary Care Unavailable HOLY CROSS, DR CONNORS Consulting Unavailable HOLY CROSS, DR CONNORS Attending Unavailable DR DORY BARNES Admitting Unavailable DR RAMON CARROLL Primary Care Unavailable Ramon Carroll MD Unavailable Ramon Carroll MD Primary Care Provider ESTER PADILLA Attending Unavailable ESTER PADILLA Attending Unavailable ASHLI CARTER Attending Unavailable ASHLI CARTER Attending Unavailable Medications Current Medications Medication Drug Class(es) Dates Sig (Normalized) Sig (Original) [id number] 200 actuat albuterol 0.09 mg/actuat metered dose [...] 06/08/2024 Active atorvastatin 20 mg oral tablet (17 sources) HMG-CoA Reductase Inhibitor Start: 08-30-2023 take 20 mg by mouth once daily at bedtime Atorvastatin Active 20 MG PO Daily at bedtime August 30, 2023 12:00am baclofen 10 mg oral tablet (16 sources) gamma-Aminobutyric Acid-ergic Agonist Start: 03-06-2023 take [...] 1.5 mg/ml oral solution (1 source) Uncompetitive L-pjcwbr-Q-asparta te Receptor Antagonist, Sigma-1 Agonist Start: 03-27-2023 take 10 mL by mouth every eight hours Home DM 7.5-7.5 MG/5ML 10 mL Orally every 8 hours for 5 days Feb, Active ergocalciferol 1.25 mg oral capsule (9 sources) Provitamin D2 Compound Start: 06-27-2011 take 1 capsule by mouth every week Vitamin D (Ergocalciferol) 98452 UNIT 1 capsule Orally Once a Week for 90 days May, Active Start: 06-27-2011 everolimus (6 sources) Kinase Inhibitor, mTOR Inhibitor Immunosuppressant Zortress Active ferrous fumarate 325 mg oral tablet (17 sources) Start: Ferrous Fumarate 325 (106 Fe) [...] acid 180 mg delayed release oral tablet (16 sources) Antimetabolite Immunosuppressant Start: 01-27-2023 take 3 tablets by mouth in the morning mycophenolate (Myfortic) 180 MG EC tablet Take 3 tablets by mouth in the morning and 3 tablets before bedtime. 01/27/2023 Active nystatin 856886 unt/ml oral suspension (17 sources) Polyene Antifungal Start: 09-02-2023 take 5 mL by mouth four times daily nystatin (Mycostatin) 210250 UNIT/ML suspension Indications: Thrush, oral SWISH AND SWALLOW 5 MLS ORALLY 4 TIMES A DAY FOR 10 DAYS 60 mL 1 09/02/2023 Active Start: 08-30-2023 take 1 mL by mouth f our times daily Nystatin Active 5 ML PO Four times daily 200 10 August 30, 2023 12:00am swish and swallow [place] 7-Epd-Ddt-Fish Oil (Fish Oil) 1,000 mg (120 mg-180 mg) capsule (1 source) Start: 08-30-2023 take 1 capsule by mouth once daily [place] 8-Yxf-Iyw-Fish Oil (Fish Oil) 1,000 mg (120 mg-180 mg) capsule Active 1 CAP PO Daily August 30, 2023 12:00am PARoxetine hydrochloride 20 mg oral tablet (18 sources) Serotonin Reuptake Inhibitor Start: 08-30-2023 Paroxetine [...] day for 30 day(s) Active vitamin B12 (19 sources) Vitamin B12 Start: 08-30-2023 take 1 [...] type] Onset: 4 08-30-2023 Chronic Immunity disorders (12 sources) Immunosuppression; Translations: [Immunodeficiency, unspecified] Onset: 5 06-01-2024 Chronic Immunizations and screening for infectious disease (6 sources) Contact with and (suspected) exposure to other viral communicable diseases; Translations: [Contact with and (suspected) exposure to other viral communicable diseases] Episodic Menopausal disorders (18 sources) Decreased estrogen level; 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-2023 Chronic Mood disorders (19 sources) Moderate major depression, single episode; Translations: [Major depressive disorder, single episode, moderate] Onset: 3 03-06-2023 Chronic Other acquired deformities (18 sources) Contracture of joint of foot; Translations: [...] Chronic Other nutritional; endocrine; and metabolic disorders (12 sources) Hypomagnesemia; Translations: [Hypomagnesemia] Onset: 5 06-01-2024 [...] 04-01-2024 Episodic Diseases of mouth; excluding dental (17 sources) Other lesions of oral mucosa; Translations: [Parotitis] Onset: 01-29-2023 Resolved: 01-30-2023 Episodic Genitourinary symptoms and ill-defined conditions (10 sources) Hematuria, unspecified; Translations: [Dysuria] Onset: 12-31-2017 Resolved: 08-14-2021 Episodic Mood disorders (16 sources) Mood disorders Onset: 01-30-2023 Resolved: 06-01-2024 01-30-2023 Mycoses (18 sources) Candidiasis of mouth; Translations: [Candidal stomatitis] Onset: 09-02-2023 Resolved: 06-01-2024 08-30-2023 Episodic Other aftercare (1 source) Encounter for therapeutic drug level monitoring; Translations: [ENCOUNTER FOR THERAPEUTIC DRUG LEVEL MONITORING] Onset: 03-27-2017 Episodic Other aftercare (2 sources) Other halfway (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 therapy; Translations: [OTHER PENITENTIARY (CURRENT) DRUG THERAPY] Onset: 02-26-2017 Episodic Other liver diseases (18 sources) Alkaline phosphatase raised; Translations: [Abnormal levels [...] Resolved: 10-27-2021 Episodic Other upper respiratory infections (16 sources) Sinusitis; Translations: [Chronic sinusitis, unspecified] Onset: [...] WITH AUTO DIFFon BASOPHILS ABSOLUTE AUTO 0 [facility] Basophils/100 WBC (Bld) 0.2 % 0.2 - 2.0 % [facility] Eosinophils/100 WBC (Bld) 1.3 % 0.9 - 7.0 % [facility] Erythrocyte distribution width (RBC) [Ratio] 14.6 % 11.0 - 15.0 % [facility] Hematocrit (Bld) [Volume fraction] 43.2 % 36.0 - 48.0 % [facility] Hemoglobin (Bld) [Mass/Vol] 14.3 g/dL 12.0 - 16.0 g/dL [facility] IMMATURE GRANULOCYTES ABS AUTO 0.03 [facility] Immature granulocytes/100 WBC (Bld) 0.3 % 0.0 - 0.5 % [facility] Interpretation and review of laboratory results Abnormal [facility] LYMPHOCYTES ABSOLUTE AUTO 1.4 [facility] Lymphocytes/100 WBC (Bld) 15.2 % Low 20.5 - 60.0 % [facility] MCH (RBC) [Entitic mass] 31.4 pg 26.7 - 34.0 pg [facility] MCHC (RBC) [Mass/Vol] 33.1 g/dL 29.9 - 35.2 g/dL [facility] MCV (RBC) [Entitic vol] 94.9 fL 81.0 - 99.0 fL [facility] MONOCYTES ABSOLUTE AUTO 0.9 High [facility] Monocytes/100 WBC (Bld) 10.1 % 1.7 - 12.0 % [facility] NEUTROPHILS ABSOLUTE AUTO 6.7 High [facility] Neutrophils/100 WBC (Bld) 72.9 % 43.0 - 75.0 % [facility] Platelet mean volume (Bld) [Entitic vol] 11.2 fL 9.5 - 13.5 fL [facility]H EO # 0.1 [facility] PLT 201 [facility] RBC 4.55 [facility] WBC 9.2 [facility] ALL CBC WITH AUTO DIFFon BASOPHILS ABSOLUTE AUTO 0 [facility] Basophils/100 WBC (Bld) 0.2 % 0.2 - 2.0 % [facility] Eosinophils/100 WBC (Bld) 2.8 % 0.9 - 7.0 % [facility] Erythrocyte distribution width (RBC) [Ratio] 14.8 % 11.0 - 15.0 % [facility] Hematocrit (Bld) [Volume fraction] 45.5 % 36.0 - 48.0 % [facility] Hemoglobin (Bld) [Mass/Vol] 15 g/dL 12.0 - 16.0 g/dL [facility] IMMATURE GRANULOCYTES ABS AUTO 0.01 [facility] Immature granulocytes/100 WBC (Bld) 0.2 % 0.0 - 0.5 % [facility] Interpretation and review of laboratory results Abnormal [facility] LYMPHOCYTES ABSOLUTE AUTO 1.3 [facility] Lymphocytes/100 WBC (Bld) 19.8 % Low 20.5 - 60.0 % [facility] MCH (RBC) [Entitic mass] 30.9 pg 26.7 - 34.0 pg [facility] MCHC (RBC) [Mass/Vol] 33 g/dL 29.9 - 35.2 g/dL [facility] MCV (RBC) [Entitic vol] 93.6 fL 81.0 - 99.0 fL [facility] MONOCYTES ABSOLUTE AUTO 0.7 [facility] Monocytes/100 WBC (Bld) 11 % 1.7 - 12.0 % [facility] NEUTROPHILS ABSOLUTE AUTO 4.2 [facility] Neutrophils/100 WBC (Bld) 66 % 43.0 - 75.0 % [facility] Platelet mean volume (Bld) [Entitic vol] 11 fL 9.5 - 13.5 fL [facility] EO # 0.2 [facility] PLT 213 [facility] RBC 4.86 [facility] WBC 6.4 [facility] ALL MAGNESIUMon 10-20-2024 Magnesium [Mass/Vol] 2 mg/dL 1.8 - 2 .4 mg/dL [facility] ALL PHOSPHOROUSon 10-20-2024 Phosphate [Mass/Vol] 3.5 mg/dL 2.6 - 4 .7 mg/dL [facility] ALL URIC ACIDon 10-20-2024 Urate [Mass/Vol] 5.7 mg/dL 2.6 - 6.0 mg/dL [facility] CMP (CMP) (FOR REMOTE FH C USE)on 10-20-2024 Albumin [Mass/Vol] 3.5 g/dL 3.4 - 5.0 g/dL [facility] ALBUMIN GLOBULIN RATIO 1.1 [facility] ALP [Catalytic activity/Vol] 142 U/L High 46 - 116 U/L [facility] ALT [Catalytic activity/Vol] 22 U/L 14 - 59 U/L [facility] Anion gap [Moles/Vol] 11.5 mmol/L [facility] AST [Catalytic activity/Vol] 16 U/L 15 - 37 U/L [facility] Bilirubin [Mass/Vol] 0.7 mg/dL 0.2 - 1 .0 mg/dL [facility] Calcium [Mass/Vol] 9.4 mg/dL 8.5 - 10. 1 mg/dL [facility] Chloride [Moles/Vol] 106 mmol/L 98 - 10 7 mmol/L [facility] CO2 [Moles/Vol] 30.6 mmol/L 21.0 - 32.0 mmol/L [facility] Creatinine [Mass/Vol] 0.85 mg/dL 0.55 - 1.02 mg/dL [facility] GFR/1.73 sq M.predicted CKD-EPI (S/P/Bld) [Vol rate/Area] >60 >=60 mL/min/1.73m 2 [facility] Globulin (S) [Mass/Vol] 3.3 g/dL [facility] Glucose [Mass/Vol] 101 mg/dL 74 - 106 mg/dL [facility] Interpretation and review of laboratory results Abnormal [facility] Potassium [Moles/Vol] 4.1 mmol/L 3.5 - 5.1 mmol/L [facility] Protein [Mass/Vol] 6.8 g/dL 6.4 - 8.2 g/dL [facility] Sodium [Moles/Vol] 144 mmol/L 136 - 145 mmol/L [facility]H EGFR-NON AF JAPANESE >60 >=60 mL/min/1.73m 2 [facility] Urea nitrogen [Mass/Vol] 15 mg/dL 7.0 - 18.0 mg/dL [facility] Urea nitrogen/Creatinine [Mass ratio] 17.6 mg/mg [facility] METRO BILIRUBIN, DIRECTon Bilirubin.indirect [Mass/Vol] 0.1 mg/dL 0.0 - 0.2 mg/dL [facility] No Panel Informationon 10-20 [facility] Follow-Upon 09-29-2024 Follow-Up [id number] Tanika Grimm 1955 F Date Provider Department Center 09/29/2024 [id number] CARTER None Family History Family Status - Relation Status Age at Mother Father Level of Service:27131 [place] OFFICE/OUTPATIENT ESTABLISHED MOD MDM 30 MIN Reason for Visit and Comments: Kidney Follow-up [[id number]] - Patient has no concerns at this time. Normal [facility] ALL CBC WITH AUTO DIFFon BASOPHILS ABSOLUTE AUTO 0 [facility] Basophils/100 WBC (Bld) 0.1 % Low 0.2 - 2.0 % [facility] Eosinophils/100 WBC (Bld) 2.4 % 0.9 - 7.0 % [facility] Erythrocyte distribution width (RBC) [Ratio] 15 % 11.0 - 15.0 % [facility] Hematocrit (Bld) [Volume fraction] 45.6 % 36.0 - 48.0 % [facility] Hemoglobin (Bld) [Mass/Vol] 15 g/dL 12.0 - 16.0 g/dL [facility] IMMATURE GRANULOCYTES ABS AUTO 0.02 [facility] Immature granulocytes/100 WBC (Bld) 0.3 % 0.0 - 0.5 % [facility] Interpretation and review of laboratory results Abnormal [facility] LYMPHOCYTES ABSOLUTE AUTO 1.2 [facility] Lymphocytes/100 WBC (Bld) 15.3 % Low 20.5 - 60.0 % [facility] MCH (RBC) [Entitic mass] 30.9 pg 26.7 - 34.0 pg [facility] MCHC (RBC) [Mass/Vol] 32.9 g/dL 29.9 - 35.2 g/dL [facility] MCV (RBC) [Entitic vol] 94 fL 81.0 - 99.0 fL [facility] MONOCYTES ABSOLUTE AUTO 0.8 [facility] Monocytes/100 WBC (Bld) 10 % 1.7 - 12.0 % [facility] NEUTROPHILS ABSOLUTE AUTO 5.4 [facility] Neutrophils/100 WBC (Bld) 71.9 % 43.0 - 75.0 % [facility] Platelet mean volume (Bld) [Entitic vol] 11.3 fL 9.5 - 13.5 fL [facility] EO # 0.2 [facility] WBC 7.5 [facility] ALL CBC WITH AUTO DIFFon BASOPHILS ABSOLUTE AUTO 0 [facility] Basophils/100 WBC (Bld) 0.2 % 0.2 - 2.0 % [facility] Eosinophils/100 WBC (Bld) 2.9 % 0.9 - 7.0 % [facility] Erythrocyte distribution width (RBC) [Ratio] 14.8 % 11.0 - 15.0 % [facility] Hematocrit (Bld) [Volume fraction] 46.8 % 36.0 - 48.0 % [facility] Hemoglobin (Bld) [Mass/Vol] 15.2 g/dL 12.0 - 16.0 g/dL [facility] IMMATURE GRANULOCYTES ABS AUTO 0.02 [facility] Immature granulocytes/100 WBC (Bld) 0.3 % 0.0 - 0.5 % [facility] LYMPHOCYTES ABSOLUTE AUTO 1.5 [facility] Lymphocytes/100 WBC (Bld) 21.9 % 20.5 - 60.0 % [facility] MCH (RBC) [Entitic mass] 30.5 pg 26.7 - 34.0 pg [facility] MCHC (RBC) [Mass/Vol] 32.5 g/dL 29.9 - 35.2 g/dL [facility] MCV (RBC) [Entitic vol] 93.8 fL 81.0 - 99.0 fL [facility] MONOCYTES ABSOLUTE AUTO 0.7 [facility] Monocytes/100 WBC (Bld) 10.5 % 1.7 - 12.0 % [facility] NEUTROPHILS ABSOLUTE AUTO 4.3 [facility] Neutrophils/100 WBC (Bld) 64.2 % 43.0 - 75.0 % [facility] Platelet mean volume (Bld) [Entitic vol] 11.7 fL 9.5 - 13.5 [facility]L [facility] WBC 6.7 [facility] ALL CBC WITH AUTO DIFFon BASOPHILS ABSOLUTE AUTO 0 [facility] Basophils/100 WBC (Bld) 0.1 % Low 0.2 - 2.0 % [facility] Eosinophils/100 WBC (Bld) 3.4 % 0.9 - 7.0 % [facility] Erythrocyte distribution width (RBC) [Ratio] 14.7 % 11.0 - 15.0 % [facility] Hematocrit (Bld) [Volume fraction] 43.1 % 36.0 - 48.0 % [facility] Hemoglobin (Bld) [Mass/Vol] 13.9 g/dL 12.0 - 16.0 g/dL [facility] IMMATURE GRANULOCYTES ABS AUTO 0.01 [facility] Immature granulocytes/100 WBC (Bld) 0.1 % 0.0 - 0.5 % [facility] Interpretation and review of laboratory results Abnormal [facility] LYMPHOCYTES ABSOLUTE AUTO 1.3 [facility] Lymphocytes/100 WBC (Bld) 18.5 % Low 20.5 - 60.0 % [facility] MCH (RBC) [Entitic mass] 30.5 pg 26.7 - 34.0 pg [facility] MCHC (RBC) [Mass/Vol] 32.3 g/dL 29.9 - 35.2 g/dL [facility] MCV (RBC) [Entitic vol] 94.5 fL 81.0 - 99.0 fL [facility] MONOCYTES ABSOLUTE AUTO 0.7 [facility] Monocytes/100 WBC (Bld) 9.9 % 1.7 - 12.0 % [facility] NEUTROPHILS ABSOLUTE AUTO 4.8 [facility] Neutrophils/100 WBC (Bld) 68 % 43.0 - 75.0 % [facility] Platelet mean volume (Bld) [Entitic vol] 11.6 fL 9.5 - 13.5 fL [facility] EO # 0.2 [facility] PLT 209 [facility] RBC 4.56 [facility] WBC 7.1 [facility] ALL CBC WITH AUTO DIFFon BASOPHILS ABSOLUTE AUTO 0 [facility] Basophils/100 WBC (Bld) 0.2 % 0.2 - 2.0 % [facility] Eosinophils/100 WBC (Bld) 2.7 % 0.9 - 7.0 % [facility] Erythrocyte distribution width (RBC) [Ratio] 14.6 % 11.0 - 15.0 % [facility] Hematocrit (Bld) [Volume fraction] 46.2 % 36.0 - 48.0 % [facility] Hemoglobin (Bld) [Mass/Vol] 14.8 g/dL 12.0 - 16.0 g/dL [facility] IMMATURE GRANULOCYTES ABS AUTO 0.01 [facility] Immature granulocytes/100 WBC (Bld) 0.2 % 0.0 - 0.5 % [facility] LYMPHOCYTES ABSOLUTE AUTO 1.4 [facility] Lymphocytes/100 WBC (Bld) 22.2 % 20.5 - 60.0 % [facility] MCH (RBC) [Entitic mass] 30.6 pg 26.7 - 34.0 pg [facility] MCHC (RBC) [Mass/Vol] 32 g/dL 29.9 - 35.2 g/dL [facility] MCV (RBC) [Entitic vol] 95.7 fL 81.0 - 99.0 fL [facility] MONOCYTES ABSOLUTE AUTO 0.7 [facility] Monocytes/100 WBC (Bld) 10.3 % 1.7 - 12.0 % [facility] NEUTROPHILS ABSOLUTE AUTO 4.1 [facility] Neutrophils/100 WBC (Bld) 64.4 % 43.0 - 75.0 % [facility] Platelet mean volume (Bld) [Entitic vol] 11.1 fL 9.5 - 13.5 [facility]L [facility] PLT 219 [facility] RBC 4.83 [facility] WBC 6.4 [facility] ALL CBC WITH AUTO DIFFon BASOPHILS ABSOLUTE AUTO 0 [facility] Basophils/100 WBC (Bld) 0.3 % 0.2 - 2.0 % [facility] Eosinophils/100 WBC (Bld) 2.8 % 0.9 - 7.0 % [facility] Erythrocyte distribution width (RBC) [Ratio] 14.9 % 11.0 - 15.0 % [facility] Hematocrit (Bld) [Volume fraction] 44.3 % 36.0 - 48.0 % [facility] Hemoglobin (Bld) [Mass/Vol] 14.2 g/dL 12.0 - 16.0 g/dL [facility] IMMATURE GRANULOCYTES ABS AUTO 0.02 [facility] Immature granulocytes/100 WBC (Bld) 0.3 % 0.0 - 0.5 % [facility] Interpretation and review of laboratory results Abnormal [facility] LYMPHOCYTES ABSOLUTE AUTO 1.2 [facility] Lymphocytes/100 WBC (Bld) 17.3 % Low 20.5 - 60.0 % [facility] MCH (RBC) [Entitic mass] 30.5 pg 26.7 - 34.0 pg [facility] MCHC (RBC) [Mass/Vol] 32.1 g/dL 29.9 - 35.2 g/dL [facility] MCV (RBC) [Entitic vol] 95.3 fL 81.0 - 99.0 fL [facility] MONOCYTES ABSOLUTE AUTO 0.7 [facility] Monocytes/100 WBC (Bld) 9.4 % 1.7 - 12.0 % [facility] NEUTROPHILS ABSOLUTE AUTO 5 [facility] Neutrophils/100 WBC (Bld) 69.9 % 43.0 - 75.0 % [facility] Platelet mean volume (Bld) [Entitic vol] 11.5 fL 9.5 - 13.5 fL [facility] EO # 0.2 [facility] PLT 210 [facility] TB RBC 4.65 [facility] TB WBC 7.1 [facility] 29on 04-01-2024 29 Addended by: ESTER FREDERICK on: 04/01/2024 02:20 PM Modules accepted: Orders Normal [facility] Follow-Upon 04-01-2024 Follow-Up [id number] Tanika Grimm 1955 F Date Provider Department Center 04/01/2024 [id number] GAITAN None Family History Family Status - Relation Status Age at Mother Father Level of Service:25718 [place] OFFICE/OUTPATIENT ESTABLISHED MOD MDM 30 MIN Reason for Visit and Comments: Kidney Follow-up [[id number]] - Pt has no concerns at this time. Normal [facility] ALL CBC WITH AUTO DIFFon BASOPHILS ABSOLUTE AUTO 0 [facility] Basophils/100 WBC (Bld) 0.2 % 0.2 - 2.0 % [facility] Eosinophils/100 WBC (Bld) 2.2 % 0.9 - 7.0 % [facility] Erythrocyte distribution width (RBC) [Ratio] 14.8 % 11.0 - 15.0 % [facility] Hematocrit (Bld) [Volume fraction] 45.3 % 36.0 - 48.0 % [facility] Hemoglobin (Bld) [Mass/Vol] 14.4 g/dL 12.0 - 16.0 g/dL [facility] IMMATURE GRANULOCYTES ABS AUTO 0.02 [facility] Immature granulocytes/100 WBC (Bld) 0.2 % 0.0 - 0.5 % [facility] Interpretation and review of laboratory results Abnormal [facility] LYMPHOCYTES ABSOLUTE AUTO 1.5 [facility] Lymphocytes/100 WBC (Bld) 18.6 % Low 20.5 - 60.0 % [facility] MCH (RBC) [Entitic mass] 30.6 pg 26.7 - 34.0 pg [facility] MCHC (RBC) [Mass/Vol] 31.8 g/dL 29.9 - 35.2 g/dL [facility] MCV (RBC) [Entitic vol] 96.4 fL 81.0 - 99.0 fL [facility] MONOCYTES ABSOLUTE AUTO 0.8 [facility] Monocytes/100 WBC (Bld) 10 % 1.7 - 12.0 % [facility] NEUTROPHILS ABSOLUTE AUTO 5.5 [facility] Neutrophils/100 WBC (Bld) 68.8 % 43.0 - 75.0 % [facility] Platelet mean volume (Bld) [Entitic vol] 11.4 fL 9.5 - 13.5 fL [facility] EO # 0.2 [facility] PLT 197 [facility] RBC 4.7 [facility] WBC 8.1 [facility] TACROLIMUS ([id number]), BLOODon 02-17-2024 TACROLIMUS ([id number]), BLOOD 4.5 ng/mL 2.0 - 20.0 ng/mL [facility] Comment on above: This test was develo ped and its performance characteristics [facility] by [facility] It has not been cleared or approved by the Food and Drug Administration. Trough (immediately following transplant) 15.0 Trough (steady state, 2 weeks or more after transplant): 3.0 - 8.0 Performed by LC-MS/MS technology. Performed at: [address] [id number] [employer] De[employer] Technician: Marizol Singleton MD, Phone: [phone] [facility] ALL CBC WITH AUTO DIFFon BASOPHILS ABSOLUTE AUTO 0 [facility] Basophils/100 WBC (Bld) 0.3 % 0.2 - 2.0 % [facility] Eosinophils/100 WBC (Bld) 2.1 % 0.9 - 7.0 % [facility] Erythrocyte distribution width (RBC) [Ratio] 14.7 % 11.0 - 15.0 % [facility] Hematocrit (Bld) [Volume fraction] 43.3 % 36.0 - 48.0 % [facility] Hemoglobin (Bld) [Mass/Vol] 14.2 g/dL 12.0 - 16.0 g/dL [facility] IMMATURE GRANULOCYTES ABS AUTO 0.03 [facility] Immature granulocytes/100 WBC (Bld) 0.4 % 0.0 - 0.5 % [facility] LYMPHOCYTES ABSOLUTE AUTO 1.4 [facility] Lymphocytes/100 WBC (Bld) 20.7 % 20.5 - 60.0 % [facility] MCH (RBC) [Entitic mass] 30.9 pg 26.7 - 34.0 pg [facility] MCHC (RBC) [Mass/Vol] 32.8 g/dL 29.9 - 35.2 g/dL [facility] MCV (RBC) [Entitic vol] 94.1 fL 81.0 - 99.0 fL [facility] MONOCYTES ABSOLUTE AUTO 0.7 [facility] Monocytes/100 WBC (Bld) 10.8 % 1.7 - 12.0 % [facility] NEUTROPHILS ABSOLUTE AUTO 4.4 [facility] Neutrophils/100 WBC (Bld) 65.7 % 43.0 - 75.0 % [facility] Platelet mean volume (Bld) [Entitic vol] 11.3 fL 9.5 - 13.5 fL [facility] EO # 0.1 [facility] PLT 193 [facility] RBC 4.6 [facility] WBC 6.7 [facility] ALL MAGNESIUMon 02-13-2024 Magnesium [Mass/Vol] 1.7 mg/dL Low 1.8 - 2 .4 mg/dL [facility] ALL PHOSPHOROUSon 02-13-2024 Phosphate [Mass/Vol] 3.4 mg/dL 2.6 - 4 .7 mg/dL [facility] ALL URIC ACIDon 02-13-2024 Urate [Mass/Vol] 4.7 mg/dL 2.6 - 6.0 mg/dL [facility] CMP (CMP) (FOR REMOTE FH C USE)on 02-13-2024 Albumin [Mass/Vol] 3.6 g/dL 3.4 - 5.0 g/dL [facility] ALBUMIN GLOBULIN RATIO 1.2 [facility] ALP [Catalytic activity/Vol] 131 U/L High 46 - 116 U/L [facility] ALT [Catalytic activity/Vol] 16 U/L 14 - 59 U/L [facility] [facility] Anion gap [Moles/Vol] 14 mmol/L [facility] AST [Catalytic activity/Vol] 13 U/L Low 15 - 37 U/L [facility] Bilirubin [Mass/Vol] 0.6 mg/dL 0.2 - 1 .0 mg/dL [facility] Calcium [Mass/Vol] 9.1 mg/dL 8.5 - 10. 1 mg/dL [facility] Chloride [Moles/Vol] 108 mmol/L High 98 - 10 7 mmol/L [facility] CO2 [Moles/Vol] 26.1 mmol/L 21.0 - 32.0 mmol/L [facility] Creatinine [Mass/Vol] 0.97 mg/dL 0.55 - 1.02 mg/dL [facility] GFR/1.73 sq M.predicted CKD-EPI (S/P/Bld) [Vol rate/Area] >60 >=60 mL/min/1.73m 2 [facility] Globulin (S) [Mass/Vol] 2.9 g/dL [facility] Glucose [Mass/Vol] 95 mg/dL 74 - 106 mg/dL [facility] Potassium [Moles/Vol] 4.1 mmol/L 3.5 - 5.1 mmol/L [facility] Protein [Mass/Vol] 6.5 g/dL 6.4 - 8.2 g/dL [facility] Sodium [Moles/Vol] 144 mmol/L 136 - 145 mmol/L [facility] TBH EGFR-NON AF JAPANESE 57 Low >=60 mL/min/1.73m 2 [facility] Urea nitrogen [Mass/Vol] 16 mg/dL 7.0 - 18.0 mg/dL [facility] Urea nitrogen/Creatinine [Mass ratio] 16.5 mg/mg [facility] [employer] BILIRUBIN, DIRECTon Bilirubin.indirect [Mass/Vol] 0.1 mg/dL 0.0 - 0.2 mg/dL [facility] No Panel Informationon 02-12 Interpretation and review of laboratory results Abnormal [facility] ALL CBC WITH AUTO DIFFon BASOPHILS ABSOLUTE AUTO 0 [facility] Basophils/100 WBC (Bld) 0.1 % Low 0.2 - 2.0 % [facility] Eosinophils/100 WBC (Bld) 2.5 % 0.9 - 7.0 % [facility] Erythrocyte distribution width (RBC) [Ratio] 14.6 % 11.0 - 15.0 % [facility] Hematocrit (Bld) [Volume fraction] 43.8 % 36.0 - 48.0 % [facility] Hemoglobin (Bld) [Mass/Vol] 14 g/dL 12.0 - 16.0 g/dL [facility] IMMATURE GRANULOCYTES ABS AUTO 0.02 [facility] Immature granulocytes/100 WBC (Bld) 0.3 % 0.0 - 0.5 % [facility] Interpretation and review of laboratory results Abnormal [facility] LYMPHOCYTES ABSOLUTE AUTO 1.4 [facility] Lymphocytes/100 WBC (Bld) 18.7 % Low 20.5 - 60.0 % [facility] MCH (RBC) [Entitic mass] 30.3 pg 26.7 - 34.0 pg [facility] MCHC (RBC) [Mass/Vol] 32 g/dL 29.9 - 35.2 g/dL [facility] MCV (RBC) [Entitic vol] 94.8 fL 81.0 - 99.0 fL [facility] MONOCYTES ABSOLUTE AUTO 0.8 [facility] Monocytes/100 WBC (Bld) 11.1 % 1.7 - 12.0 % [facility] NEUTROPHILS ABSOLUTE AUTO 4.9 [facility] Neutrophils/100 WBC (Bld) 67.3 % 43.0 - 75.0 % [facility] Platelet mean volume (Bld) [Entitic vol] 11.2 fL 9.5 - 13.5 fL [facility] RBC 4.62 [facility] WBC 7.3 [facility] ALL CBC WITH AUTO DIFFon BASOPHILS ABSOLUTE AUTO 0.0 [facility] Basophils/100 WBC (Bld) 0.3 % 0.2 - 2.0 % [facility] Eosinophils/100 WBC (Bld) 3.6 % 0.9 - 7.0 % [facility] Erythrocyte distribution width (RBC) [Ratio] 14.7 % 11.0 - 15.0 % [facility] Hematocrit (Bld) [Volume fraction] 46.0 % 36.0 - 48.0 % [facility] Hemoglobin (Bld) [Mass/Vol] 14.7 g/dL 12.0 - 16.0 g/dL [facility] IMMATURE GRANULOCYTES ABS AUTO 0.01 [facility] Immature granulocytes/100 WBC (Bld) 0.2 % 0.0 - 0.5 % [facility] LYMPHOCYTES ABSOLUTE AUTO 1.4 [facility] Lymphocytes/100 WBC (Bld) 22.4 % 20.5 - 60.0 % [facility] MCH (RBC) [Entitic mass] 30.1 pg 26.7 - 34.0 pg [facility] MCHC (RBC) [Mass/Vol] 32.0 g/dL 29.9 - 35.2 g/dL [facility] MCV (RBC) [Entitic vol] 94.3 fL 81.0 - 99.0 fL [facility] MONOCYTES ABSOLUTE AUTO 0.6 [facility] Monocytes/100 WBC (Bld) 9.6 % 1.7 - 12.0 % [facility] NEUTROPHILS ABSOLUTE AUTO 3.9 [facility] Neutrophils/100 WBC (Bld) 63.9 % 43.0 - 75.0 % [facility] Platelet mean volume (Bld) [Entitic vol] 11.6 fL 9.5 - 13.5 fL [facility] PLT 202 [facility] RBC 4.88 [facility] WBC 6.0 [facility] MLR HEMOGLOBIN A1Con 024 Glucose [Mass/Vol] 108 mg/dL [facility] HbA1c (Bld) [Mass fraction] 5.4 % 4.5 - 6.2 % [facility] Comment on above: ADA RECOMMENDED LIMI T 4.0 - 6.0 ADA THERAPEUTIC TARGET < 7.0 ACTION SUGG[facility]ED [facility]23 Documentation [id number] Tanika Grimm 1955 F Date Provider Department Center 12/09/2023 FERNANDA MARVIN None Family History Family Status - Relation Status Age at Mother Father Reason for Visit and Comments: Prior auth : Mycophenolate [Other] Normal [facility] Documentationon 11-26-2023 Documentation [id number] Tanika Grimm 1955 F Date Provider Department Center 11/26/2023 FERNANDA MARVIN None Family History Family Status - Relation Status Age at Mother Father Reason for Visit and Comments: Prior auth Tac 0.5mg [Other] Normal [facility] No Panel InformationOrdered By: Lindsay Soria on 08-30-2023 Quick Strep (POC) [facility] COVID/FLU/RSV RT-PCRon 03-27 SARS-CoV-2 (COVID-19) RNA MURALI+probe Ql (Unsp spec) Negative [facility] [employer] Other COVID/FLU/RSV RT-PCR Negative [facility] [employer] Other Quick Strepon 03-27-2023 S. pyogenes Org specific cx Ql (Throat) Negative [facility] [employer] Other Quick Strep [facility] [employer] Other BILIRUBIN CONJUGATED (DIRECT )on 08-12-2022 BILI, CONJUGATED 0.1 mg/dL Normal 0.0-0.2 [facility] Comment on above: Performed By: #### D DAVIDSON, MG, PHOS, CMP, LIPID, URIC #### [facility] [address] [address] [address] Sarmad Patino GLYCOHEMOGLOBIN A1Con 2022 ADA RECOMMENDATION SEE BELOW Normal [facility] Comment on above: Result Comment: ADA RECOMMENDED LIMIT 4.0 - 6.0 ADA THERAPEUTIC TARGET < 7.0 ACTION SUGGESTED > 7.0 Performed By: #### D DAVIDSON, MG, PHOS, CMP, LIPID, URIC #### [facility] [address] [address] [address] Sarmad Patino Glucose [Mass/Vol] 108 mg/dL Normal [facility] Comment on above: Performed By: #### D DAVIDSON, MG, PHOS, CMP, LIPID, URIC #### [facility] [address] [place] [address] Dr. Sarmad Patino HbA1c (Bld) [Mass fraction] 5.4 % Normal 4.5-6.2 [facility] Comment on above: Performed By: #### D DAVIDSON, MG, PHOS, CMP, LIPID, URIC #### [facility] [address] [place] [address] Dr. Sarmad Patino MAGNESIUMon 08-12-2022 Magnesium [Mass/Vol] 1.7 mg/dL Critically low 1.8-2.4 [facility] Comment on above: Performed By: #### D DAVIDSON, MG, PHOS, CMP, LIPID, URIC #### [facility] [address] [place] [address] Dr. Sarmad Patino PHOSPHORUSon 08-12-2022 Phosphate [Mass/Vol] 3.9 mg/dL Normal 2.6-4.7 [facility] Comment on above: Performed By: #### U JUVE, LIPID, MG, CMP, DBIL, PHOS #### [facility] [address] [place] [address] Dr. Sarmad Patino PROF 14(COMP METB)on 023 Albumin [Mass/Vol] 3.9 g/dL Normal 3.4-5.0 [facility] Comment on above: Performed By: #### D DAVIDSON, MG, PHOS, CMP, LIPID, URIC #### [facility] [address] [place] [address] Dr. Sarmad Patino Albumin/Globulin [Mass ratio] 1.2 {ratio} Normal The [facility] Comment on above: Performed By: #### D DAVIDSON, MG, PHOS, CMP, LIPID, URIC #### [facility] [address] [place] [address] Dr. Sarmad Patino ALP [Catalytic activity/Vol] 126 U/L Critically high 46-116 The [facility] Comment on above: Performed By: #### D DAVIDSON, MG, PHOS, CMP, LIPID, URIC #### [facility] [address] [address] [address] Sarmad Patino ALT [Catalytic activity/Vol] 18 U/L Normal 14-59 [facility] Comment on above: Performed By: #### D DAVIDSON, MG, PHOS, CMP, LIPID, URIC #### [facility] [address] [address] [address] aSrmad Patino Anion gap [Moles/Vol] 10.4 mmol/L Normal [facility] Comment on above: Performed By: #### D DAVIDSON, MG, PHOS, CMP, LIPID, URIC #### [facility] [address] [address] [address] Sarmad Patino AST [Catalytic activity/Vol] 14 U/L Critically low 15-37 [facility] Comment on above: Performed By: #### D DAVIDSON, MG, PHOS, CMP, LIPID, URIC #### [facility] [address] [address] [address] Sarmad Patino Bilirubin [Mass/Vol] 0.7 mg/dL Normal 0.2-1.0 [facility] Comment on above: Performed By: #### D DAVIDSON, MG, PHOS, CMP, LIPID, URIC #### [facility] [address] [address] [address] Sarmad Patino Calcium [Mass/Vol] 9.8 mg/dL Normal 8.5-10.1 [facility] Comment on above: Performed By: #### D DAVIDSON, MG, PHOS, CMP, LIPID, URIC #### [facility] [address] [address] [address] Sarmad Patino Chloride [Moles/Vol] 106 mmol/L Normal 98-107 [facility] Comment on above: Performed By: #### D DAVIDSON, MG, PHOS, CMP, LIPID, URIC #### [facility] [address] [address] [address] Sarmad Patino CO2 [Moles/Vol] 32.1 mmol/L Critically high 21.0-32.0 [facility] Comment on above: Performed By: #### D DAVIDSON, MG, PHOS, CMP, LIPID, URIC #### [facility] [address] [address] [address] Sarmad Patino Creatinine [Mass/Vol] 0.92 mg/dL Normal 0.55-1.02 [facility] Comment on above: Performed By: #### D DAVIDSON, MG, PHOS, CMP, LIPID, URIC #### [facility] [address] [place] [address] Dr. Sarmad Patino EGFR-AF JAPANESE >60 Normal >=60 [facility] Comment on above: Performed By: #### D DAVIDSON, MG, PHOS, CMP, LIPID, URIC #### [facility] [address] [place] [address] Dr. Sarmad Patino EGFR-NON AF JAPANESE >60 Normal >=60 [facility] Comment on above: Performed By: #### D DAVIDSON, MG, PHOS, CMP, LIPID, URIC #### [facility] [address] [place] [address] Dr. Sarmad Patino Globulin (S) [Mass/Vol] 3.3 g/dL Normal [facility] Comment on above: Performed By: #### D DAVIDSON, MG, PHOS, CMP, LIPID, URIC #### [facility] [address] [place] [address] Dr. Sarmad Patino Glucose [Mass/Vol] 102 mg/dL Normal 74-106 [facility] Comment on above: Performed By: #### D DAVIDSON, MG, PHOS, CMP, LIPID, URIC #### [facility] [address] [place] [address] Dr. Sarmad Patino Potassium [Moles/Vol] 4.5 mmol/L Normal 3.5-5.1 The [facility] Comment on above: Performed By: #### D DAVIDSON, MG, PHOS, CMP, LIPID, URIC #### [facility] [address] [place] [address] Dr. Sarmad Patino Protein [Mass/Vol] 7.2 g/dL Normal 6.4-8.2 [facility] Comment on above: Performed By: #### D DAVIDSON, MG, PHOS, CMP, LIPID, URIC #### [facility] [address] [address] [address] Sarmad Patino Sodium [Moles/Vol] 144 mmol/L Normal 136-145 [facility] Comment on above: Performed By: #### D DAVIDSON, MG, PHOS, CMP, LIPID, URIC #### [facility] [address] [address] [address] Sarmad Patino Urea nitrogen [Mass/Vol] 20.0 mg/dL Critically high 7.0-18.0 [facility] Comment on above: Performed By: #### D DAVIDSON, MG, PHOS, CMP, LIPID, URIC #### [facility] [address] [address] [address] Sarmad Patino Urea nitrogen/Creatinine [Mass ratio] 21.7 mg/mg Normal [facility] Comment on above: Performed By: #### D DAVIDSON, MG, PHOS, CMP, LIPID, URIC #### [facility] [address] [address] [address] Sarmad Patino URIC ACID SERUMon 08-12-2022 Urate [Mass/Vol] 5.2 mg/dL Normal 2.6-6.0 [facility] Comment on above: Performed By: #### D DAVIDSON, MG, PHOS, CMP, LIPID, URIC #### [facility] [address] [address] [address] Sarmad Patino MG MAMM SCREEN 3D DAVIDSON CADon 07-23-2022 MG MAMM SCREEN 3D DAVIDSON CAD Patient: TANIKA GRIMMKarlie Exam Date: 07/23/2022 : 1955 Gender:F Ordering : DR RAMON CARROLL M.D. Admission #: [id number] Family : Order #: [id number] CLICK HERE TO VIEW EXAM RADIOLOGY REPORT [...] Treatments None Family Cancers None LOCATION: The [facility] BREAST COMPOSITION: Extremely dense, which lowers the [...] M.D. on 07/23/2022 at 16:36 Approved by: Brtiton Bernard M.D. on 07/23/2022 at 16:59 Normal The [facility] FK506 (TACROLIMUS) WHOLE BLO ODon 07-10-2022 Tacrolimus (FK506), Blood 3.8 ng/mL Normal 2.0-20.0 [facility] Comment on above: Result Comment: Trou gh (immediately following transplant) 15.0 . Trough (steady state, 2 weeks or more after transplant): 3.0 - 8.0 . Performed by LC-MS/MS technology. Performed By: #### D DAVIDSON, MG, PHOS, CMP, LIPID, URIC #### [facility] [address] [address] [address] Sarmad Patino BILIRUBIN CONJUGATED (DIRECT )on 07-08-2022 BILI, CONJUGATED 0.1 mg/dL Normal 0.0-0.2 [facility] Comment on above: Performed By: #### U JUVE, LIPID, MG, CMP, DBIL, PHOS #### [facility] [address] [address] [address] Sarmad Patino GLYCOHEMOGLOBIN A1Con 2022 ADA RECOMMENDATION SEE BELOW Normal [facility] Comment on above: Result Comment: ADA RECOMMENDED LIMIT 4.0 - 6.0 ADA THERAPEUTIC TARGET < 7.0 ACTION SUGGESTED > 7.0 Performed By: #### D DAVIDSON, MG, PHOS, CMP, LIPID, URIC #### [facility] [address] [address] [address] Sarmad Patino Glucose [Mass/Vol] 105 mg/dL Normal [facility] Comment on above: Performed By: #### D DAVIDSON, MG, PHOS, CMP, LIPID, URIC #### [facility] [address] [address] [address] Sarmad Patino HbA1c (Bld) [Mass fraction] 5.3 % Normal 4.5-6.2 [facility] Comment on above: Performed By: #### D DAVIDSON, MG, PHOS, CMP, LIPID, URIC #### [facility] [address] [place] [address] Dr. Sarmad Patino MAGNESIUMon 07-08-2022 Magnesium [Mass/Vol] 1.8 mg/dL Normal 1.8-2.4 [facility] Comment on above: Performed By: #### U JUVE, LIPID, MG, CMP, DBIL, PHOS #### [facility] [address] [place] [address] Dr. Sarmad Patino PHOSPHORUSon 07-08-2022 Phosphate [Mass/Vol] 3.8 mg/dL Normal 2.6-4.7 [facility] Comment on above: Performed By: #### U JUVE, LIPID, MG, CMP, DBIL, PHOS #### [facility] [address] [place] [address] Dr. Sarmad Patino PROF 14(COMP METB)on 023 Albumin [Mass/Vol] 3.7 g/dL Normal 3.4-5.0 [facility] Comment on above: Performed By: #### U JUVE, LIPID, MG, CMP, DBIL, PHOS #### [facility] [address] [place] [address] Dr. Sarmad Patino Albumin/Globulin [Mass ratio] 1.1 {ratio} Normal [facility] Comment on above: Performed By: #### U JUVE, LIPID, MG, CMP, DBIL, PHOS #### [facility] [address] [place] [address] Dr. Sarmad Patino ALP [Catalytic activity/Vol] 124 U/L Critically high 46-116 [facility] Comment on above: Performed By: #### U JUVE, LIPID, MG, CMP, DBIL, PHOS #### [facility] [address] [place] [address] Dr. Sarmad Patino ALT [Catalytic activity/Vol] 20 U/L Normal 14-59 [facility] Comment on above: Performed By: #### U JUVE, LIPID, MG, CMP, DBIL, PHOS #### [facility] [address] [place] [address] Dr. Sarmad Patino Anion gap [Moles/Vol] 11.5 mmol/L Normal Th [facility] Comment on above: Performed By: #### U JUVE, LIPID, MG, CMP, DBIL, PHOS #### [facility] [address] [place] [address] Dr. Sarmad Patino AST [Catalytic activity/Vol] 12 U/L Critically low 15-37 [facility] Comment on above: Performed By: #### U JUVE, LIPID, MG, CMP, DBIL, PHOS #### [facility] [address] [place] [address] Dr. Sarmad Patino Bilirubin [Mass/Vol] 0.5 mg/dL Normal 0.2-1.0 [facility] Comment on above: Performed By: #### U JUVE, LIPID, MG, CMP, DBIL, PHOS #### [facility] [address] [place] [address] Dr. Sarmad Patino Calcium [Mass/Vol] 9.6 mg/dL Normal 8.5-10.1 [facility] Comment on above: Performed By: #### U JUVE, LIPID, MG, CMP, DBIL, PHOS #### [facility] [address] [place] [address] Dr. Sarmad Patino Chloride [Moles/Vol] 106 mmol/L Normal 98-107 The [facility] Comment on above: Performed By: #### U JUVE, LIPID, MG, CMP, DBIL, PHOS #### [facility] [address] [place] [address] Dr. Sarmad Patino CO2 [Moles/Vol] 29.7 mmol/L Normal 21.0-32.0 [facility] Comment on above: Performed By: #### U JUVE, LIPID, MG, CMP, DBIL, PHOS #### [facility] [address] [address] [address] Sarmad Patino Creatinine [Mass/Vol] 0.77 mg/dL Normal 0.55-1.02 [facility] Comment on above: Performed By: #### U JUVE, LIPID, MG, CMP, DBIL, PHOS #### [facility] [address] [place] [address] Dr. Sarmad Patino EGFR-AF JAPANESE >60 Normal >=60 [facility] Comment on above: Performed By: #### U JUVE, LIPID, MG, CMP, DBIL, PHOS #### [facility] [address] [place] [address] Dr. Sarmad Patino EGFR-NON AF JAPANESE >60 Normal >=60 The [facility] Comment on above: Performed By: #### U JUVE, LIPID, MG, CMP, DBIL, PHOS #### [facility] [address] [place] [address] Dr. Sarmad Patino Globulin (S) [Mass/Vol] 3.4 g/dL Normal [facility] Comment on above: Performed By: #### U JUVE, LIPID, MG, CMP, DBIL, PHOS #### [facility] [address] [place] [address] Dr. Sarmad Patino Glucose [Mass/Vol] 97 mg/dL Normal 74-106 [facility] Comment on above: Performed By: #### U JUVE, LIPID, MG, CMP, DBIL, PHOS #### [facility] [address] [place] [address] Dr. Sarmad Patino Potassium [Moles/Vol] 4.2 mmol/L Normal 3.5-5.1 The [facility] Comment on above: Performed By: #### U JUVE, LIPID, MG, CMP, DBIL, PHOS #### [facility] [address] [place] [address] Dr. Sarmad Patino Protein [Mass/Vol] 7.1 g/dL Normal 6.4-8.2 [facility] Comment on above: Performed By: #### U JUVE, LIPID, MG, CMP, DBIL, PHOS #### [facility] [address] [address] [address] Sarmad Patino Sodium [Moles/Vol] 143 mmol/L Normal 136-145 [facility] Comment on above: Performed By: #### U JUVE, LIPID, MG, CMP, DBIL, PHOS #### [facility] [address] [place] [address] Dr. Sarmad Patino Urea nitrogen [Mass/Vol] 26.0 mg/dL Critically high 7.0-18.0 [facility] Comment on above: Performed By: #### U JUVE, LIPID, MG, CMP, DBIL, PHOS #### [facility] [address] [address] [address] Sarmad Patino Urea nitrogen/Creatinine [Mass ratio] 33.8 mg/mg Normal [facility] Comment on above: Performed By: #### U JUVE, LIPID, MG, CMP, DBIL, PHOS #### [facility] [address] [place] [address] Dr. Sarmad Patino URIC ACID SERUMon 07-08-2022 Urate [Mass/Vol] 4.7 mg/dL Normal 2.6-6.0 [facility] Comment on above: Performed By: #### U JUVE, LIPID, MG, CMP, DBIL, PHOS #### [facility] [address] [place] [address] Dr. Sarmad Patino FK506 (TACROLIMUS) WHOLE BLO ODon 06-13-2022 Tacrolimus (FK506), Blood 3.0 ng/mL Normal 2.0-20.0 [facility] Comment on above: Result Comment: Trou gh (immediately following transplant) 15.0 . Trough (steady state, 2 weeks or more after transplant): 3.0 - 8.0 . Performed by LC-MS/MS technology. Performed By: #### D DAVIDSON, MG, PHOS, CMP, LIPID, URIC #### [facility] [address] [place] [address] Dr. Sarmad Patino BK VIRUS PCR QUANTon 023 BKV DNA QUANT PCR PLASMA Negative Normal Negative [facility] Comment on above: Result Comment: No B K DNA detected. . The linear range of the assay is 22 - 100,000,000 IU/mL. Performed By: #### B KVIRUS #### [facility] [address] [place] [address] Dr. Sarmad Patino Log10 BKV DNA Plasma Normal The [facility] Comment on above: Performed By: #### B KVIRUS #### [facility] [address] [place] [address] Dr. Sarmad Patino BILIRUBIN CONJUGATED (DIRECT )on 06-10-2022 BILI, CONJUGATED 0.1 mg/dL Normal 0.0-0.2 [facility] Comment on above: Performed By: #### U JUVE, LIPID, MG, CMP, DBIL, PHOS #### [facility] [address] [place] [address] Dr. Sarmad Patino GLYCOHEMOGLOBIN A1Con 2022 ADA RECOMMENDATION SEE BELOW Normal [facility] Comment on above: Result Comment: ADA RECOMMENDED LIMIT 4.0 - 6.0 ADA THERAPEUTIC TARGET < 7.0 ACTION SUGGESTED > 7.0 Performed By: #### D DAVIDSON, MG, PHOS, CMP, LIPID, URIC #### [facility] [address] [place] [address] Dr. Sarmad Patino Glucose [Mass/Vol] 114 mg/dL Normal [facility] Comment on above: Performed By: #### D DAVIDSON, MG, PHOS, CMP, LIPID, URIC #### [facility] [address] [place] [address] Dr. Sarmad Patino HbA1c (Bld) [Mass fraction] 5.6 % Normal 4.5-6.2 [facility] Comment on above: Performed By: #### D DAVIDSON, MG, PHOS, CMP, LIPID, URIC #### [facility] [address] [place] [address] Dr. Sarmad Patino MAGNESIUMon 06-10-2022 Magnesium [Mass/Vol] 1.6 mg/dL Critically low 1.8-2.4 [facility] Comment on above: Performed By: #### U JUVE, LIPID, MG, CMP, DBIL, PHOS #### [facility] [address] [place] [address] Dr. Sarmad Patino PROF 14(COMP METB)on 023 Albumin [Mass/Vol] 3.7 g/dL Normal 3.4-5.0 [facility] Comment on above: Performed By: #### U JUVE, LIPID, MG, CMP, DBIL, PHOS #### [facility] [address] [place] [address] Dr. Sarmad Patino Albumin/Globulin [Mass ratio] 1.1 {ratio} Normal [facility] Comment on above: Performed By: #### U JUVE, LIPID, MG, CMP, DBIL, PHOS #### [facility] [address] [place] [address] Dr. Sarmad Patino ALP [Catalytic activity/Vol] 142 U/L Critically high 46-116 [facility] Comment on above: Performed By: #### U JUVE, LIPID, MG, CMP, DBIL, PHOS #### [facility] [address] [place] [address] Dr. Sarmad Patino ALT [Catalytic activity/Vol] 29 U/L Normal 14-59 [facility] Comment on above: Performed By: #### U JUVE, LIPID, MG, CMP, DBIL, PHOS #### [facility] [address] [place] [address] Dr. Sarmad Patino Anion gap [Moles/Vol] 11.1 mmol/L Normal [facility] Comment on above: Performed By: #### U JUVE, LIPID, MG, CMP, DBIL, PHOS #### [facility] [address] [place] [address] Dr. Sarmad Patino AST [Catalytic activity/Vol] 19 U/L Normal 15-37 [facility] Comment on above: Performed By: #### U JUVE, LIPID, MG, CMP, DBIL, PHOS #### [facility] [address] [place] [address] Dr. Sarmad Patino Bilirubin [Mass/Vol] 0.6 mg/dL Normal 0.2-1.0 [facility] Comment on above: Performed By: #### U JUVE, LIPID, MG, CMP, DBIL, PHOS #### [facility] [address] [address] [address] Sarmad Patino Calcium [Mass/Vol] 9.8 mg/dL Normal 8.5-10.1 [facility] Comment on above: Performed By: #### U JUVE, LIPID, MG, CMP, DBIL, PHOS #### [facility] [address] [place] [address] Dr. Sarmad Patino Chloride [Moles/Vol] 103 mmol/L Normal 98-107 The [facility] Comment on above: Performed By: #### U JUVE, LIPID, MG, CMP, DBIL, PHOS #### [facility] [address] [place] [address] Dr. Sarmad Patino CO2 [Moles/Vol] 30.7 mmol/L Normal 21.0-32.0 [facility] Comment on above: Performed By: #### U JUVE, LIPID, MG, CMP, DBIL, PHOS #### [facility] [address] [place] [address] Dr. Sarmad Patino Creatinine [Mass/Vol] 0.79 mg/dL Normal 0.55-1.02 [facility] Comment on above: Performed By: #### U JUVE, LIPID, MG, CMP, DBIL, PHOS #### [facility] [address] [place] [address] Dr. Sarmad Patino EGFR-AF JAPANESE >60 Normal >=60 [facility] Comment on above: Performed By: #### U JUVE, LIPID, MG, CMP, DBIL, PHOS #### [facility] [address] [place] [address] Dr. Sarmad Patino EGFR-NON AF JAPANESE >60 Normal >=60 [facility] Comment on above: Performed By: #### U JUVE, LIPID, MG, CMP, DBIL, PHOS #### [facility] [address] [place] [address] Dr. Sarmad Patino Globulin (S) [Mass/Vol] 3.4 g/dL Normal [facility] Comment on above: Performed By: #### U JUVE, LIPID, MG, CMP, DBIL, PHOS #### [facility] [address] [address] [address] Sarmad Patino Glucose [Mass/Vol] 94 mg/dL Normal 74-106 [facility] Comment on above: Performed By: #### U JUVE, LIPID, MG, CMP, DBIL, PHOS #### [facility] [address] [address] [address] Sarmad Patino Potassium [Moles/Vol] 3.8 mmol/L Normal 3.5-5.1 The [facility] Comment on above: Performed By: #### U JUVE, LIPID, MG, CMP, DBIL, PHOS #### [facility] [address] [address] [address] Sarmad Patino Protein [Mass/Vol] 7.1 g/dL Normal 6.4-8.2 [facility] Comment on above: Performed By: #### U JUVE, LIPID, MG, CMP, DBIL, PHOS #### [facility] [address] [address] [address] Sarmad Patino Sodium [Moles/Vol] 141 mmol/L Normal 136-145 [facility] Comment on above: Performed By: #### U JUVE, LIPID, MG, CMP, DBIL, PHOS #### [facility] [address] [address] [address] Sarmad Patino Urea nitrogen [Mass/Vol] 17.0 mg/dL Normal 7.0-18.0 The [facility] Comment on above: Performed By: #### U JUVE, LIPID, MG, CMP, DBIL, PHOS #### [facility] [address] [address] [address] Sarmad Patino Urea nitrogen/Creatinine [Mass ratio] 21.5 mg/mg Normal The [facility] Comment on above: Performed By: #### U JUVE, LIPID, MG, CMP, DBIL, PHOS #### [facility] [address] [address] [address] Sarmad Patino URIC ACID SERUMon 06-10-2022 Urate [Mass/Vol] 5.1 mg/dL Normal 2.6-6.0 [facility] Comment on above: Performed By: #### U JUVE, LIPID, MG, CMP, DBIL, PHOS #### [facility] [address] [address] [address] Sarmad Patino BK VIRUS PCR QUANTon 023 BKV DNA QUANT PCR PLASMA Negative Normal Negative [facility] Comment on above: Result Comment: No B K DNA detected. . The linear range of the assay is 22 - 100,000,000 IU/mL. Performed By: #### U JUVE, LIPID, MG, CMP, DBIL, PHOS #### [facility] [address] [address] [address] Sarmad Patino Log10 BKV DNA Plasma Normal [facility] Comment on above: Performed By: #### U JUVE, LIPID, MG, CMP, DBIL, PHOS #### [facility] [address] [address] [address] Sarmad Patino FK506 (TACROLIMUS) WHOLE BLO ODon 05-13-2022 Tacrolimus (FK506), Blood 4.1 ng/mL Normal 2.0-20.0 [facility] Comment on above: Result Comment: Trou gh (immediately following transplant) 15.0 . Trough (steady state, 2 weeks or more after transplant): 3.0 - 8.0 . Performed by LC-MS/MS technology. Performed By: #### U JUVE, LIPID, MG, CMP, DBIL, PHOS #### [facility] [address] [place] [address] Dr. Sarmad Patino BILIRUBIN CONJUGATED (DIRECT )on 05-10-2022 BILI, CONJUGATED 0.1 mg/dL Normal 0.0-0.2 [facility] Comment on above: Performed By: #### D DAVIDSON, MG, PHOS, CMP, LIPID, URIC #### [facility] [address] [address] [address] Sarmad Patino GLYCOHEMOGLOBIN A1Con 2022 ADA RECOMMENDATION SEE BELOW Normal [facility] Comment on above: Result Comment: ADA RECOMMENDED LIMIT 4.0 - 6.0 ADA THERAPEUTIC TARGET < 7.0 ACTION SUGGESTED > 7.0 Performed By: #### D DAVIDSON, MG, PHOS, CMP, LIPID, URIC #### [facility] [address] [address] [address] Sarmad Patino Glucose [Mass/Vol] 108 mg/dL Normal [facility] Comment on above: Performed By: #### D DAVIDSON, MG, PHOS, CMP, LIPID, URIC #### [facility] [address] [address] [address] Sarmad Patino HbA1c (Bld) [Mass fraction] 5.4 % Normal 4.5-6.2 [facility] Comment on above: Performed By: #### D DAVIDSON, MG, PHOS, CMP, LIPID, URIC #### [facility] [address] [address] [address] Sarmad Patino MAGNESIUMon 05-10-2022 Magnesium [Mass/Vol] 1.9 mg/dL Normal 1.8-2.4 [facility] Comment on above: Performed By: #### U JUVE, LIPID, MG, CMP, DBIL, PHOS #### [facility] [address] [place] [address] Dr. Sarmad Patino PROF 14(COMP METB)on 023 Albumin [Mass/Vol] 3.9 g/dL Normal 3.4-5.0 [facility] Comment on above: Performed By: #### D DAVIDSON, MG, PHOS, CMP, LIPID, URIC #### [facility] [address] [place] [address] Dr. Sarmad Patino Albumin/Globulin [Mass ratio] 1.2 {ratio} Normal The [facility] Comment on above: Performed By: #### D DAVIDSON, MG, PHOS, CMP, LIPID, URIC #### [facility] [address] [place] [address] Dr. Sarmad Patino ALP [Catalytic activity/Vol] 114 U/L Normal 46-116 The [facility] Comment on above: Performed By: #### D DAVIDSON, MG, PHOS, CMP, LIPID, URIC #### [facility] [address] [place] [address] Dr. Sarmad Patino ALT [Catalytic activity/Vol] 18 U/L Normal 14-59 The [facility] Comment on above: Performed By: #### D DAVIDSON, MG, PHOS, CMP, LIPID, URIC #### [facility] [address] [address] [address] Sarmad Patino Anion gap [Moles/Vol] 15.9 mmol/L Normal Th e [facility] Comment on above: Performed By: #### D DAVIDSON, MG, PHOS, CMP, LIPID, URIC #### [facility] [address] [address] [address] Sarmad Patino AST [Catalytic activity/Vol] 17 U/L Normal 15-37 [facility] Comment on above: Performed By: #### D DAVIDSON, MG, PHOS, CMP, LIPID, URIC #### [facility] [address] [place] [address] Dr. Sarmad Patino Bilirubin [Mass/Vol] 0.4 mg/dL Normal 0.2-1.0 [facility] Comment on above: Performed By: #### D DAVIDSON, MG, PHOS, CMP, LIPID, URIC #### [facility] [address] [place] [address] Dr. Sarmad Patino Calcium [Mass/Vol] 9.8 mg/dL Normal 8.5-10.1 [facility] Comment on above: Performed By: #### D DAVIDSON, MG, PHOS, CMP, LIPID, URIC #### [facility] [address] [place] [address] Dr. Sarmad Patino Chloride [Moles/Vol] 103 mmol/L Normal 98-107 The [facility] Comment on above: Performed By: #### D DAVIDSON, MG, PHOS, CMP, LIPID, URIC #### [facility] [address] [place] [address] Dr. Sarmad Patino CO2 [Moles/Vol] 29.2 mmol/L Normal 21.0-32.0 [facility] Comment on above: Performed By: #### D DAVIDSON, MG, PHOS, CMP, LIPID, URIC #### [facility] [address] [place] [address] Dr. Sarmad Patino Creatinine [Mass/Vol] 0.74 mg/dL Normal 0.55-1.02 [facility] Comment on above: Performed By: #### D DAVIDSON, MG, PHOS, CMP, LIPID, URIC #### [facility] [address] [place] [address] Dr. Sarmad Patino EGFR-AF JAPANESE >60 Normal >=60 [facility] Comment on above: Performed By: #### D DAVIDSON, MG, PHOS, CMP, LIPID, URIC #### [facility] [address] [place] [address] Dr. Sarmad Patino EGFR-NON AF JAPANESE >60 Normal >=60 [facility] Comment on above: Performed By: #### D DAVIDSON, MG, PHOS, CMP, LIPID, URIC #### [facility] [address] [place] [address] Dr. Sarmad Patino Globulin (S) [Mass/Vol] 3.2 g/dL Normal [facility] Comment on above: Performed By: #### D DAVIDSON, MG, PHOS, CMP, LIPID, URIC #### [facility] [address] [place] [address] Dr. Saramd Patino Glucose [Mass/Vol] 94 mg/dL Normal 74-106 [facility] Comment on above: Performed By: #### D DAVIDSON, MG, PHOS, CMP, LIPID, URIC #### [facility] [address] [place] [address] Dr. Sarmad Patino Potassium [Moles/Vol] 4.1 mmol/L Normal 3.5-5.1 The [facility] Comment on above: Performed By: #### D DAVIDSON, MG, PHOS, CMP, LIPID, URIC #### [facility] [address] [place] [address] Dr. Sarmad Patino Protein [Mass/Vol] 7.1 g/dL Normal 6.4-8.2 [facility] Comment on above: Performed By: #### D DAVIDSON, MG, PHOS, CMP, LIPID, URIC #### [facility] [address] [place] [address] Dr. Sarmad Patino Sodium [Moles/Vol] 144 mmol/L Normal 136-145 [facility] Comment on above: Performed By: #### D DAVIDSON, MG, PHOS, CMP, LIPID, URIC #### [facility] [address] [address] [address] Sarmad Patino Urea nitrogen [Mass/Vol] 18.0 mg/dL Normal 7.0-18.0 [facility] Comment on above: Performed By: #### D DAVIDSON, MG, PHOS, CMP, LIPID, URIC #### [facility] [address] [address] [address] Sarmad Patino Urea nitrogen/Creatinine [Mass ratio] 24.3 mg/mg Normal [facility] Comment on above: Performed By: #### D DAVIDSON, MG, PHOS, CMP, LIPID, URIC #### [facility] [address] [address] [address] Sarmad Patino URIC ACID SERUMon 05-10-2022 Urate [Mass/Vol] 5.1 mg/dL Normal 2.6-6.0 [facility] Comment on above: Performed By: #### U JUVE, LIPID, MG, CMP, DBIL, PHOS #### [facility] [address] [address] [address] Sarmad Patino MYCOPHENOLIC ACIDon 04-17-19 Mycophenolic Acid 1.2 ug/mL Normal 1.0-3.5 [facility] Comment on above: Performed By: #### D DAVIDSON, MG, PHOS, CMP, LIPID, URIC #### [facility] [address] [address] [address] Sarmad Patino Mycophenolic Acid Glucuronide 37 ug/mL Normal 15-125 The [facility] Comment on above: Result Comment: [facility] 's Reference Range: 35-100 mcg/mL. Performed By: #### D DAVIDSON, MG, PHOS, CMP, LIPID, URIC #### [facility] [address] [place] [address] Dr. Sarmad Patino FK506 (TACROLIMUS) WHOLE BLO ODon 04-10-2022 Tacrolimus (FK506), Blood 4.2 ng/mL Normal 2.0-20.0 [facility] Comment on above: Result Comment: Trou gh (immediately following transplant) 15.0 . Trough (steady state, 2 weeks or more after transplant): 3.0 - 8.0 . Performed by LC-MS/MS technology. Performed By: #### D DAVIDSON, MG, PHOS, CMP, LIPID, URIC #### [facility] [address] [place] [address] Dr. Sarmad Patino BILIRUBIN CONJUGATED (DIRECT )on 04-08-2022 BILI, CONJUGATED 0.1 mg/dL Normal 0.0-0.2 [facility] Comment on above: Performed By: #### U JUVE, LIPID, MG, CMP, DBIL, PHOS #### [facility] [address] [place] [address] Dr. Sarmad Patino CBC AUTO DIFFon 04-08-2022 BASO # 0.0 103/ul Normal 0.0-0.1 The [facility] Comment on above: Performed By: #### D DAVIDSON, MG, PHOS, CMP, LIPID, URIC #### [facility] [address] [place] [address] Dr. Sarmad Patino Basophils/100 WBC (Bld) 0.3 % Normal 0.2-2.0 The [facility] Comment on above: Performed By: #### D DAVIDSON, MG, PHOS, CMP, LIPID, URIC #### [facility] [address] [place] [address] Dr. Sarmad Patino EO # 0.1 103/ul Normal 0.0-0.7 The [facility] Comment on above: Performed By: #### D DAVIDSON, MG, PHOS, CMP, LIPID, URIC #### [facility] [address] [place] [address] Dr. Sarmad Patino Eosinophils/100 WBC (Bld) 1.4 % Normal 0.9-7.0 The [facility] Comment on above: Performed By: #### D DAVIDSON, MG, PHOS, CMP, LIPID, URIC #### [facility] [address] [place] [address] Dr. Sarmad Patino Erythrocyte distribution width (RBC) [Ratio] 15.8 % Critically high 11.0-15.0 The [facility] Comment on above: Performed By: #### D DAVIDSON, MG, PHOS, CMP, LIPID, URIC #### [facility] [address] [place] [address] Dr. Sarmad Patino Hematocrit (Bld) [Volume fraction] 43.0 % Normal 36.0-48.0 [facility] Comment on above: Performed By: #### D DAVIDSON, MG, PHOS, CMP, LIPID, URIC #### [facility] [address] [place] [address] Dr. Sarmad Patino Hemoglobin (Bld) [Mass/Vol] 15.0 g/dL Normal 12.0-16.0 [facility] Comment on above: Performed By: #### D DAVIDSON, MG, PHOS, CMP, LIPID, URIC #### [facility] [address] [place] [address] Dr. Sarmad Patino IG # 0.01 10e3/ul Normal 0.00-0.03 [facility] Comment on above: Performed By: #### D DAVIDSON, MG, PHOS, CMP, LIPID, URIC #### [facility] [address] [place] [address] Dr. Sarmad Patino IG % 0.1 % Normal 0.0-0.5 [facility] Comment on above: Performed By: #### D DAVIDSON, MG, PHOS, CMP, LIPID, URIC #### [facility] [address] [place] [address] Dr. Sarmad Patino LYMPH # 1.3 103/ul Normal 1.2-3.8 The [facility] Comment on above: Performed By: #### D DAVIDSON, MG, PHOS, CMP, LIPID, URIC #### [facility] [address] [place] [address] Dr. Sarmad Patino Lymphocytes/100 WBC (Bld) 18.3 % Critically low 20.5-60.0 The [facility] Comment on above: Performed By: #### D DAVIDSON, MG, PHOS, CMP, LIPID, URIC #### [facility] [address] [place] [address] Dr. Sarmad Patino MANUAL DIFF REQ NO Normal The [facility] Comment on above: Performed By: #### D DAVIDSON, MG, PHOS, CMP, LIPID, URIC #### [facility] [address] [place] [address] Dr. Sarmad Patino MCH (RBC) [Entitic mass] 29.7 pg Normal 26.7-34.0 [facility] Comment on above: Performed By: #### D DAVIDSON, MG, PHOS, CMP, LIPID, URIC #### [facility] [address] [place] [address] Dr. Sarmad Patino MCHC (RBC) [Mass/Vol] 34.9 g/dL Normal 29.9-35.2 The [facility] Comment on above: Performed By: #### D DAVIDSON, MG, PHOS, CMP, LIPID, URIC #### [facility] [address] [place] [address] Dr. Sarmad Patino MCV (RBC) [Entitic vol] 85.1 fL Normal 81.0-99.0 [facility] Comment on above: Performed By: #### D DAVIDSON, MG, PHOS, CMP, LIPID, URIC #### [facility] [address] [place] [address] Dr. Sarmad Patino MONO # 0.7 103/ul Normal 0.3-0.8 The [facility] Comment on above: Performed By: #### D DAVIDSON, MG, PHOS, CMP, LIPID, URIC #### [facility] [address] [place] [address] Dr. Sarmad Patino Monocytes/100 WBC (Bld) 9.8 % Normal 1.7-12.0 The [facility] Comment on above: Performed By: #### D DAVIDSON, MG, PHOS, CMP, LIPID, URIC #### [facility] [address] [place] [address] Dr. Sarmad Patino NEUT # 5.1 103/ul Normal 1.4-6.5 The [facility] Comment on above: Performed By: #### D DAVIDSON, MG, PHOS, CMP, LIPID, URIC #### [facility] [address] [place] [address] Dr. Sarmad Patino Neutrophils/100 WBC (Bld) 70.1 % Normal 43.0-75.0 The [facility] Comment on above: Performed By: #### D DAVIDSON, MG, PHOS, CMP, LIPID, URIC #### [facility] [address] [address] [address] Sarmad Patino Platelet mean volume (Bld) [Entitic vol] 10.4 fL Normal 9.5-13.5 [facility] Comment on above: Performed By: #### D DAVIDSON, MG, PHOS, CMP, LIPID, URIC #### [facility] [address] [address] [address] Sarmad Patino PLT 229 103/ul Normal 150-450 [facility] Comment on above: Performed By: #### D DAVIDSON, MG, PHOS, CMP, LIPID, URIC #### [facility] [address] [place] [address] Dr. Sarmad Patino RBC 5.05 106/ul Normal 4.20-5.40 [facility] Comment on above: Performed By: #### D DAVIDSON, MG, PHOS, CMP, LIPID, URIC #### [facility] [address] [place] [address] Dr. Sarmad Patino WBC 7.2 103/ul Normal 4.0-11.0 [facility] Comment on above: Performed By: #### D DAVIDSON, MG, PHOS, CMP, LIPID, URIC #### [facility] [address] [place] [address] Dr. Sarmad Patino LIPID PROFILEon 04-08-2022 CHOL-HDL RATIO NORM SEE BELOW Normal [facility] Comment on above: Result Comment: 3.3 - 4.4 LOW RISK 4.4 - 7.1 AVERAGE RISK 7.1 - 11.0 MODERATE RISK >11.0 HIGH RISK Performed By: #### U JUVE, LIPID, MG, CMP, DBIL, PHOS #### [facility] [address] [place] [address] Dr. Sarmad Patino Cholesterol [Mass/Vol] 134 mg/dL Normal <=200 [facility] Comment on above: Performed By: #### U JUVE, LIPID, MG, CMP, DBIL, PHOS #### [facility] [address] [place] [address] Dr. Sarmad Patino Cholesterol in HDL [Mass/Vol] 55 mg/dL Normal 40-60 [facility] Comment on above: Performed By: #### U JUVE, LIPID, MG, CMP, DBIL, PHOS #### [facility] [address] [address] [address] Sarmad Patino Cholesterol in LDL [Mass/Vol] 56.6 mg/dL Normal [facility] Comment on above: Performed By: #### U JUVE, LIPID, MG, CMP, DBIL, PHOS #### [facility] [address] [address] [address] Sarmad Patino Cholesterol.total/Cho lesterol in HDL [Mass ratio] 2.4 {ratio} Normal [facility] Comment on above: Performed By: #### U JUVE, LIPID, MG, CMP, DBIL, PHOS #### [facility] [address] [address] [address] Sarmad Patino HDL NORMAL > or = 60 mg/dl - LO W CARDIOVASCULAR RISK <40 mg/dl - HIGH CARDIOVASCULAR RISK Normal [facility] Comment on above: Performed By: #### U JUVE, LIPID, MG, CMP, DBIL, PHOS #### [facility] [address] [address] [address] Sarmad Patino LDL CALC NORMAL SEE BELOW Normal [facility] Comment on above: Result Comment: <100 mg/dl OPTIMAL 100 - 129 mg/dl NEAR OR ABOVE OPTIMAL 130 - 159 mg/dl BORDERLINE HIGH 160 - 189 mg/dl HIGH >190 mg/dl VERY HIGH Performed By: #### U JUVE, LIPID, MG, CMP, DBIL, PHOS #### [facility] [address] [address] [address] Sarmad Patino Triglyceride [Mass/Vol] 112 mg/dL Normal <=150 [facility] Comment on above: Performed By: #### U JUVE, LIPID, MG, CMP, DBIL, PHOS #### [facility] [address] [address] [address] Sarmad Patino VLDL CALC 22.4 mg/dL Normal [facility] Comment on above: Performed By: #### U JUVE, LIPID, MG, CMP, DBIL, PHOS #### [facility] [address] [place] [address] Dr. Sarmad Patino MAGNESIUMon 04-08-2022 Magnesium [Mass/Vol] 1.8 mg/dL Normal 1.8-2.4 [facility] Comment on above: Performed By: #### U JUVE, LIPID, MG, CMP, DBIL, PHOS #### [facility] [address] [place] [address] Dr. Sarmad Patino PHOSPHORUSon 04-08-2022 Phosphate [Mass/Vol] 3.9 mg/dL Normal 2.6-4.7 [facility] Comment on above: Performed By: #### U JUVE, LIPID, MG, CMP, DBIL, PHOS #### [facility] [address] [place] [address] Dr. Sarmad Patino PROF 14(COMP METB)on 023 Albumin [Mass/Vol] 4.0 g/dL Normal 3.4-5.0 [facility] Comment on above: Performed By: #### U JUVE, LIPID, MG, CMP, DBIL, PHOS #### [facility] [address] [place] [address] Dr. Sarmad Patino Albumin/Globulin [Mass ratio] 1.3 {ratio} Normal [facility] Comment on above: Performed By: #### U JUVE, LIPID, MG, CMP, DBIL, PHOS #### [facility] [address] [place] [address] Dr. Sarmad Patino ALP [Catalytic activity/Vol] 108 U/L Normal 46-116 [facility] Comment on above: Performed By: #### U JUVE, LIPID, MG, CMP, DBIL, PHOS #### [facility] [address] [place] [address] Dr. Sarmad Patino ALT [Catalytic activity/Vol] 15 U/L Normal 14-59 [facility] Comment on above: Performed By: #### U JUVE, LIPID, MG, CMP, DBIL, PHOS #### [facility] [address] [place] [address] Dr. Sarmad Patino Anion gap [Moles/Vol] 14.3 mmol/L Normal [facility] Comment on above: Performed By: #### U JUVE, LIPID, MG, CMP, DBIL, PHOS #### [facility] [address] [place] [address] Dr. Sarmad Patino AST [Catalytic activity/Vol] 15 U/L Normal 15-37 [facility] Comment on above: Performed By: #### U JUVE, LIPID, MG, CMP, DBIL, PHOS #### [facility] [address] [place] [address] Dr. Sarmad Patino Bilirubin [Mass/Vol] 0.5 mg/dL Normal 0.2-1.0 [facility] Comment on above: Performed By: #### U JUVE, LIPID, MG, CMP, DBIL, PHOS #### [facility] [address] [place] [address] Dr. Sarmad Patino Calcium [Mass/Vol] 9.7 mg/dL Normal 8.5-10.1 [facility] Comment on above: Performed By: #### U JUVE, LIPID, MG, CMP, DBIL, PHOS #### [facility] [address] [place] [address] Dr. Sarmad Patino Chloride [Moles/Vol] 105 mmol/L Normal 98-107 [facility] Comment on above: Performed By: #### U JUVE, LIPID, MG, CMP, DBIL, PHOS #### [facility] [address] [place] [address] Dr. Sarmad Patino CO2 [Moles/Vol] 26.6 mmol/L Normal 21.0-32.0 [facility] Comment on above: Performed By: #### U JUVE, LIPID, MG, CMP, DBIL, PHOS #### [facility] [address] [place] [address] Dr. Sarmad Patino Creatinine [Mass/Vol] 0.80 mg/dL Normal 0.55-1.02 [facility] Comment on above: Performed By: #### U JUVE, LIPID, MG, CMP, DBIL, PHOS #### [facility] [address] [place], [place] [id number] Dr. Sarmad Patino EGFR-AF JAPANESE >60 Normal >=60 [facility] Comment on above: Performed By: #### U JUVE, LIPID, MG, CMP, DBIL, PHOS #### [facility] [address] [place] [address] Dr. Sarmad Patino EGFR-NON AF JAPANESE >60 Normal >=60 The [facility] Comment on above: Performed By: #### U JUVE, LIPID, MG, CMP, DBIL, PHOS #### [facility] [address] [place] [address] Dr. Sarmad Patino Globulin (S) [Mass/Vol] 3.0 g/dL Normal The [facility] Comment on above: Performed By: #### U JVUE, LIPID, MG, CMP, DBIL, PHOS #### [facility] [address] [place] [address] Dr. Sarmad Patino Glucose [Mass/Vol] 99 mg/dL Normal 74-106 [facility] Comment on above: Performed By: #### U JUVE, LIPID, MG, CMP, DBIL, PHOS #### [facility] [address] [place] [address] Dr. Sarmad Patino Potassium [Moles/Vol] 3.9 mmol/L Normal 3.5-5.1 The [facility] Comment on above: Performed By: #### U JUVE, LIPID, MG, CMP, DBIL, PHOS #### [facility] [address] [place] [address] Dr. Sarmad Patino Protein [Mass/Vol] 7.0 g/dL Normal 6.4-8.2 [facility] Comment on above: Performed By: #### U JUVE, LIPID, MG, CMP, DBIL, PHOS #### [facility] [address] [place] [address] Dr. Sarmad Patino Sodium [Moles/Vol] 142 mmol/L Normal 136-145 [facility] Comment on above: Performed By: #### U JUVE, LIPID, MG, CMP, DBIL, PHOS #### [facility] [address] [place] [address] Dr. Sarmad Patino Urea nitrogen [Mass/Vol] 14.0 mg/dL Normal 7.0-18.0 [facility] Comment on above: Performed By: #### U JUVE, LIPID, MG, CMP, DBIL, PHOS #### [facility] [address] [place] [address] Dr. Sarmad Patino Urea nitrogen/Creatinine [Mass ratio] 17.5 mg/mg Normal [facility] Comment on above: Performed By: #### U JUVE, LIPID, MG, CMP, DBIL, PHOS #### [facility] [address] [place] [address] Dr. Sarmad Patino URIC ACID SERUMon 04-08-2022 Urate [Mass/Vol] 5.2 mg/dL Normal 2.6-6.0 [facility] Comment on above: Performed By: #### U JUVE, LIPID, MG, CMP, DBIL, PHOS #### [facility] [address] [place] [address] Dr. Sarmad Patino BK VIRUS PCR QUANTon BKV DNA QUANT PCR PLASMA Negative Normal Negative [facility] Comment on above: Result Comment: No B K DNA detected. . The linear range of the assay is 22 - 100,000,000 IU/mL. Performed By: #### D DAVIDSON, MG, PHOS, CMP, LIPID, URIC #### [facility] [address] [place] [address] Dr. Sarmad Patino Log10 BKV DNA Plasma Normal [facility] Comment on above: Performed By: #### D DAVIDSON, MG, PHOS, CMP, LIPID, URIC #### [facility] [address] [place] [address] Dr. Sarmad Patino FK506 (TACROLIMUS) WHOLE BLO ODon 03-13-2022 Tacrolimus (FK506), Blood 5.0 ng/mL Normal 2.0-20.0 [facility] Comment on above: Result Comment: Trou gh (immediately following transplant) 15.0 . Trough (steady state, 2 weeks or more after transplant): 3.0 - 8.0 . Performed by LC-MS/MS technology. Performed By: #### D DAVIDSON, MG, PHOS, CMP, LIPID, URIC #### [facility] [address] [address] [address] Sarmad Patino GLYCOHEMOGLOBIN A1Con 2021 ADA RECOMMENDATION SEE BELOW Normal [facility] Comment on above: Result Comment: ADA RECOMMENDED LIMIT 4.0 - 6.0 ADA THERAPEUTIC TARGET < 7.0 ACTION SUGGESTED > 7.0 Performed By: #### D DAVIDSON, MG, PHOS, CMP, LIPID, URIC #### [facility] [address] [address] [address] Sarmad Patino Glucose [Mass/Vol] 111 mg/dL Normal [facility] Comment on above: Performed By: #### D DAVIDSON, MG, PHOS, CMP, LIPID, URIC #### [facility] [address] [place] [address] Dr. Sarmad Patino HbA1c (Bld) [Mass fraction] 5.5 % Normal 4.5-6.2 [facility] Comment on above: Performed By: #### D DAVIDSON, MG, PHOS, CMP, LIPID, URIC #### [facility] [address] [address] [address] Sarmad Patino LIVER PROFILEon 03-11-2022 Albumin [Mass/Vol] 3.7 g/dL Normal 3.4-5.0 [facility] Comment on above: Performed By: #### D DAVIDSON, MG, PHOS, CMP, LIPID, URIC #### [facility] [address] [address] [address] Sarmad Patino Albumin/Globulin [Mass ratio] 1.1 {ratio} Normal [facility] Comment on above: Performed By: #### D DAVIDSON, MG, PHOS, CMP, LIPID, URIC #### [facility] [address] [address] [address] Sarmad Patino ALP [Catalytic activity/Vol] 124 U/L Critically high 46-116 [facility] Comment on above: Performed By: #### D DAVIDSON, MG, PHOS, CMP, LIPID, URIC #### [facility] [address] [address] [address] Sarmad Patino ALT [Catalytic activity/Vol] 17 U/L Normal 14-59 [facility] Comment on above: Performed By: #### D DAVIDSON, MG, PHOS, CMP, LIPID, URIC #### [facility] [address] [address] [address] Sarmad Pation AST [Catalytic activity/Vol] 16 U/L Normal 15-37 [facility] Comment on above: Performed By: #### D DAVIDSON, MG, PHOS, CMP, LIPID, URIC #### [facility] [address] [address] [address] Sarmad Patino BILI, CONJUGATED 0.2 mg/dL Normal 0.0-0.2 [facility] Comment on above: Performed By: #### D DAVIDSON, MG, PHOS, CMP, LIPID, URIC #### [facility] [address] [place] [address] Dr. Sarmad Patino Bilirubin [Mass/Vol] 0.6 mg/dL Normal 0.2-1.0 [facility] Comment on above: Performed By: #### D DAVIDSON, MG, PHOS, CMP, LIPID, URIC #### [facility] [address] [place] [address] Dr. Sarmad Patino Globulin (S) [Mass/Vol] 3.4 g/dL Normal [facility] Comment on above: Performed By: #### D DAVIDSON, MG, PHOS, CMP, LIPID, URIC #### [facility] [address] [place] [address] Dr. Sarmad Patino Protein [Mass/Vol] 7.1 g/dL Normal 6.4-8.2 [facility] Comment on above: Performed By: #### D DAVIDSON, MG, PHOS, CMP, LIPID, URIC #### [facility] [address] [address] [address] Sarmad Patino MAGNESIUMon 03-11-2022 Magnesium [Mass/Vol] 1.6 mg/dL Critically low 1.8-2.4 [facility] Comment on above: Performed By: #### D DAVIDSON, MG, PHOS, CMP, LIPID, URIC #### [facility] [address] [place] [address] Dr. Sarmad Patino PHOSPHORUSon 03-11-2022 Phosphate [Mass/Vol] 3.5 mg/dL Normal 2.6-4.7 [facility] Comment on above: Performed By: #### D DAVIDSON, MG, PHOS, CMP, LIPID, URIC #### [facility] [address] [address] [address] Sarmad Patino URIC ACID SERUMon 03-11-2022 Urate [Mass/Vol] 5.3 mg/dL Normal 2.6-6.0 [facility] Comment on above: Performed By: #### D DAVIDSON, MG, PHOS, CMP, LIPID, URIC #### [facility] [address] [place] [address] Dr. Sarmad Patino MYCOPHENOLIC ACIDon 02-19-20 22 Mycophenolic Acid 1.5 ug/mL Normal 1.0-3.5 [facility] Comment on above: Performed By: #### D DAVIDSON, MG, PHOS, CMP, LIPID, URIC #### [facility] [address] [place] [address] Dr. Sarmad Patino Mycophenolic Acid Glucuronide 32 ug/mL Normal 15-125 The [facility] Comment on above: Result Comment: [facility] 's Reference Range: 35-100 mcg/mL. Performed By: #### D ADVIDSON, MG, PHOS, CMP, LIPID, URIC #### [facility] [address] [place] [address] Dr. Sarmad Patino BK VIRUS PCR QUANTon 022 BKV DNA QUANT PCR PLASMA Negative Normal Negative [facility] Comment on above: Result Comment: No B K DNA detected. . The linear range of the assay is 22 - 100,000,000 IU/mL. Performed By: #### D DAVIDSON, MG, PHOS, CMP, LIPID, URIC #### [facility] [address] [place] [address] Dr. Sarmad Patino Log10 BKV DNA Plasma Normal [facility] Comment on above: Performed By: #### D DAVIDSON, MG, PHOS, CMP, LIPID, URIC #### [facility] [address] [place] [address] Dr. Sarmad Patino FK506 (TACROLIMUS) WHOLE BLO ODon 02-11-2022 Tacrolimus (FK506), Blood 4.4 ng/mL Normal 2.0-20.0 [facility] Comment on above: Result Comment: Trou gh (immediately following transplant) 15.0 . Trough (steady state, 2 weeks or more after transplant): 3.0 - 8.0 . Performed by LC-MS/MS technology. Performed By: #### U JUVE, LIPID, MG, CMP, DBIL, PHOS #### [facility] [address] [place] [address] Dr. Sarmad Patino BILIRUBIN CONJUGATED (DIRECT )on 02-08-2022 BILI, CONJUGATED 0.1 mg/dL Normal 0.0-0.2 [facility] Comment on above: Performed By: #### D DAVIDSON, MG, PHOS, CMP, LIPID, URIC #### [facility] [address] [place] [address] Dr. Sarmad Patino CBC AUTO DIFFon 02-08-2022 BASO # 0.0 103/ul Normal 0.0-0.1 [facility] Comment on above: Performed By: #### D DAVIDSON, MG, PHOS, CMP, LIPID, URIC #### [facility] [address] [place] [address] Dr. Sarmad Patino Basophils/100 WBC (Bld) 0.3 % Normal 0.2-2.0 [facility] Comment on above: Performed By: #### D DAVIDSON, MG, PHOS, CMP, LIPID, URIC #### [facility] [address] [place] [address] Dr. Sarmad Patino EO # 0.1 103/ul Normal 0.0-0.7 The [facility] Comment on above: Performed By: #### D DAVIDSON, MG, PHOS, CMP, LIPID, URIC #### [facility] [address] [place] [address] Dr. Sarmad Patino Eosinophils/100 WBC (Bld) 1.0 % Normal 0.9-7.0 The [facility] Comment on above: Performed By: #### D DAVIDSON, MG, PHOS, CMP, LIPID, URIC #### [facility] [address] [place] [address] Dr. Sarmad Patino Erythrocyte distribution width (RBC) [Ratio] 15.9 % Critically high 11.0-15.0 [facility] Comment on above: Performed By: #### D DAVIDSON, MG, PHOS, CMP, LIPID, URIC #### [facility] [address] [place] [address] Dr. Sarmad Patino Hematocrit (Bld) [Volume fraction] 42.2 % Normal 36.0-48.0 [facility] Comment on above: Performed By: #### D DAVIDSON, MG, PHOS, CMP, LIPID, URIC #### [facility] [address] [place] [address] Dr. Sarmad Patino Hemoglobin (Bld) [Mass/Vol] 13.8 g/dL Normal 12.0-16.0 [facility] Comment on above: Performed By: #### D DAVIDSON, MG, PHOS, CMP, LIPID, URIC #### [facility] [address] [place] [address] Dr. Sarmad Patino IG # 0.10 10e3/ul Critically high 0.00-0.03 [facility] Comment on above: Performed By: #### D DAVIDSON, MG, PHOS, CMP, LIPID, URIC #### [facility] [address] [place] [address] Dr. Sarmad Patino IG % 1.1 % Critically high 0.0-0.5 The [facility] Comment on above: Performed By: #### D DAVIDSON, MG, PHOS, CMP, LIPID, URIC #### [facility] [address] [place] [address] Dr. Sarmad Patino LYMPH # 1.2 103/ul Normal 1.2-3.8 The [facility] Comment on above: Performed By: #### D DAVIDSON, MG, PHOS, CMP, LIPID, URIC #### [facility] [address] [place] [address] Dr. Sarmad Patino Lymphocytes/100 WBC (Bld) 12.6 % Critically low 20.5-60.0 [facility] Comment on above: Performed By: #### D DAVIDSON, MG, PHOS, CMP, LIPID, URIC #### [facility] [address] [place] [address] Dr. Sarmad Patino MANUAL DIFF REQ NO Normal [facility] Comment on above: Performed By: #### D DAVIDSON, MG, PHOS, CMP, LIPID, URIC #### [facility] [address] [place] [address] Dr. Sarmad Patino MCH (RBC) [Entitic mass] 28.3 pg Normal 26.7-34.0 The [facility] Comment on above: Performed By: #### D DAVIDSON, MG, PHOS, CMP, LIPID, URIC #### [facility] [address] [place] [address] Dr. Sarmad Patino MCHC (RBC) [Mass/Vol] 32.7 g/dL Normal 29.9-35.2 The [facility] Comment on above: Performed By: #### D DAVIDSON, MG, PHOS, CMP, LIPID, URIC #### [facility] [address] [place] [address] Dr. Sarmad Patino MCV (RBC) [Entitic vol] 86.7 fL Normal 81.0-99.0 The [facility] Comment on above: Performed By: #### D DAVIDSON, MG, PHOS, CMP, LIPID, URIC #### [facility] [address] [place] [address] Dr. Sarmad Patino MONO # 1.0 103/ul Critically high 0.3-0.8 [facility] Comment on above: Performed By: #### D DAVIDSON, MG, PHOS, CMP, LIPID, URIC #### [facility] [address] [place] [address] Dr. Sarmad Patino Monocytes/100 WBC (Bld) 10.7 % Normal 1.7-12.0 The [facility] Comment on above: Performed By: #### D DAVIDSON, MG, PHOS, CMP, LIPID, URIC #### [facility] [address] [place] [address] Dr. Sarmad Patino NEUT # 6.9 103/ul Critically high 1.4-6.5 [facility] Comment on above: Performed By: #### D DAVIDSON, MG, PHOS, CMP, LIPID, URIC #### [facility] [address] [address] [address] Sarmad Patino Neutrophils/100 WBC (Bld) 74.3 % Normal 43.0-75.0 [facility] Comment on above: Performed By: #### D DAVIDSON, MG, PHOS, CMP, LIPID, URIC #### [facility] [address] [address] [address] Sarmad Patino Platelet mean volume (Bld) [Entitic vol] 11.1 fL Normal 9.5-13.5 [facility] Comment on above: Performed By: #### D DAVIDSON, MG, PHOS, CMP, LIPID, URIC #### [facility] [address] [address] [address] Sarmad Patino PLT 307 103/ul Normal 150-450 [facility] Comment on above: Performed By: #### D DAVIDSON, MG, PHOS, CMP, LIPID, URIC #### [facility] [address] [address] [address] Sarmad Patino RBC 4.87 106/ul Normal 4.20-5.40 The [facility] Comment on above: Performed By: #### D DAVIDSON, MG, PHOS, CMP, LIPID, URIC #### [facility] [address] [place] [address] Dr. aSrmad Patino WBC 9.3 103/ul Normal 4.0-11.0 [facility] Comment on above: Performed By: #### D DAVIDSON, MG, PHOS, CMP, LIPID, URIC #### [facility] [address] [place] [address] Dr. Sarmad Patino GLYCOHEMOGLOBIN A1Con 2021 ADA RECOMMENDATION SEE BELOW Normal [facility] Comment on above: Result Comment: ADA RECOMMENDED LIMIT 4.0 - 6.0 ADA THERAPEUTIC TARGET < 7.0 ACTION SUGGESTED > 7.0 Performed By: #### D DAVIDSON, MG, PHOS, CMP, LIPID, URIC #### [facility] [address] [place] [address] Dr. Sarmad Patino Glucose [Mass/Vol] 134 mg/dL Normal [facility] Comment on above: Performed By: #### D DAVIDSON, MG, PHOS, CMP, LIPID, URIC #### [facility] [address] [address] [address] Sarmad Patino HbA1c (Bld) [Mass fraction] 6.3 % Critically high 4.5-6.2 [facility] Comment on above: Performed By: #### D DAVIDSON, MG, PHOS, CMP, LIPID, URIC #### [facility] [address] [address] [address] Sarmad Patino LIPID PROFILEon 02-08-2022 CHOL-HDL RATIO NORM SEE BELOW Normal [facility] Comment on above: Result Comment: 3.3 - 4.4 LOW RISK 4.4 - 7.1 AVERAGE RISK 7.1 - 11.0 MODERATE RISK >11.0 HIGH RISK Performed By: #### D DAVIDSON, MG, PHOS, CMP, LIPID, URIC #### [facility] [address] [address] [address] Sarmad Patino Cholesterol [Mass/Vol] 180 mg/dL Normal <=200 [facility] Comment on above: Performed By: #### D DAVIDSON, MG, PHOS, CMP, LIPID, URIC #### [facility] [address] [address] [address] Sarmad Patino Cholesterol in HDL [Mass/Vol] 58 mg/dL Normal 40-60 [facility] Comment on above: Performed By: #### D DAVIDSON, MG, PHOS, CMP, LIPID, URIC #### [facility] [address] [address] [address] Sarmad Patino Cholesterol in LDL [Mass/Vol] 86.6 mg/dL Normal [facility] Comment on above: Performed By: #### D DAVIDSON, MG, PHOS, CMP, LIPID, URIC #### [facility] [address] [address] [address] Sarmad Patino Cholesterol.total/Cho lesterol in HDL [Mass ratio] 3.1 {ratio} Normal [facility] Comment on above: Performed By: #### D DAVIDSON, MG, PHOS, CMP, LIPID, URIC #### [facility] [address] [address] [address] Sarmad Patino HDL NORMAL > or = 60 mg/dl - LO W CARDIOVASCULAR RISK <40 mg/dl - HIGH CARDIOVASCULAR RISK Normal [facility] Comment on above: Performed By: #### D DAVIDSON, MG, PHOS, CMP, LIPID, URIC #### [facility] [address] [address] [address] Sarmad Patino LDL CALC NORMAL SEE BELOW Normal [facility] Comment on above: Result Comment: <100 mg/dl OPTIMAL 100 - 129 mg/dl NEAR OR ABOVE OPTIMAL 130 - 159 mg/dl BORDERLINE HIGH 160 - 189 mg/dl HIGH >190 mg/dl VERY HIGH Performed By: #### D DAVIDSON, MG, PHOS, CMP, LIPID, URIC #### [facility] [address] [place] [address] Dr. Sarmad Patino Triglyceride [Mass/Vol] 177 mg/dL Critically high <=150 [facility] Comment on above: Performed By: #### D DAVIDSON, MG, PHOS, CMP, LIPID, URIC #### [facility] [address] [address] [address] Sarmad Patino VLDL CALC 35.4 mg/dL Normal The [facility] Comment on above: Performed By: #### D DAVIDSON, MG, PHOS, CMP, LIPID, URIC #### [facility] [address] [place] [address] Dr. Sarmad Patino MAGNESIUMon 02-08-2022 Magnesium [Mass/Vol] 1.8 mg/dL Normal 1.8-2.4 The [facility] Comment on above: Performed By: #### D DAVIDSON, MG, PHOS, CMP, LIPID, URIC #### [facility] [address] [address] [address] Sarmad Patino PHOSPHORUSon 02-08-2022 Phosphate [Mass/Vol] 3.3 mg/dL Normal 2.6-4.7 The [facility] Comment on above: Performed By: #### D DAVIDSON, MG, PHOS, CMP, LIPID, URIC #### [facility] [address] [place] [address] Dr. Sarmad Patino PROF 14(COMP METB)on 022 Albumin [Mass/Vol] 3.8 g/dL Normal 3.4-5.0 [facility] Comment on above: Performed By: #### D DAVIDSON, MG, PHOS, CMP, LIPID, URIC #### [facility] [address] [place] [address] Dr. Sarmad Patino Albumin/Globulin [Mass ratio] 1.3 {ratio} Normal [facility] Comment on above: Performed By: #### D DAVIDSON, MG, PHOS, CMP, LIPID, URIC #### [facility] [address] [address] [address] Sarmad Patino ALP [Catalytic activity/Vol] 144 U/L Critically high 46-116 [facility] Comment on above: Performed By: #### D DAVIDSON, MG, PHOS, CMP, LIPID, URIC #### [facility] [address] [place] [address] Dr. Sarmad Patino ALT [Catalytic activity/Vol] 24 U/L Normal 14-59 [facility] Comment on above: Performed By: #### D DAVIDSON, MG, PHOS, CMP, LIPID, URIC #### [facility] [address] [address] [address] Sarmad Patino Anion gap [Moles/Vol] 13.7 mmol/L Normal [facility] Comment on above: Performed By: #### D DAVIDSON, MG, PHOS, CMP, LIPID, URIC #### [facility] [address] [place] [address] Dr. Sarmad Patino AST [Catalytic activity/Vol] 19 U/L Normal 15-37 [facility] Comment on above: Performed By: #### D DAVIDSON, MG, PHOS, CMP, LIPID, URIC #### [facility] [address] [place] [address] Dr. Sarmad Patino Bilirubin [Mass/Vol] 0.5 mg/dL Normal 0.2-1.0 [facility] Comment on above: Performed By: #### D DAVIDSON, MG, PHOS, CMP, LIPID, URIC #### [facility] [address] [place] [address] Dr. Sarmad Patino Calcium [Mass/Vol] 9.6 mg/dL Normal 8.5-10.1 [facility] Comment on above: Performed By: #### D DAVIDSON, MG, PHOS, CMP, LIPID, URIC #### [facility] [address] [address] [address] Sarmad Patino Chloride [Moles/Vol] 103 mmol/L Normal 98-107 The [facility] Comment on above: Performed By: #### D DAVIDSON, MG, PHOS, CMP, LIPID, URIC #### [facility] [address] [address] [address] Sarmad Patino CO2 [Moles/Vol] 26.6 mmol/L Normal 21.0-32.0 [facility] Comment on above: Performed By: #### D DAVIDSON, MG, PHOS, CMP, LIPID, URIC #### [facility] [address] [place] [address] Dr. Sarmad Patino Creatinine [Mass/Vol] 0.75 mg/dL Normal 0.55-1.02 [facility] Comment on above: Performed By: #### D DAVIDSON, MG, PHOS, CMP, LIPID, URIC #### [facility] [address] [place] [address] Dr. Sarmad Patino EGFR-AF JAPANESE >60 Normal >=60 [facility] Comment on above: Performed By: #### D DAVIDSON, MG, PHOS, CMP, LIPID, URIC #### [facility] [address] [address] [address] Sarmad Patino EGFR-NON AF JAPANESE >60 Normal >=60 [facility] Comment on above: Performed By: #### D DAVIDSON, MG, PHOS, CMP, LIPID, URIC #### [facility] [address] [address] [address] Sarmad Patino Globulin (S) [Mass/Vol] 3.0 g/dL Normal [facility] Comment on above: Performed By: #### D DAVIDSON, MG, PHOS, CMP, LIPID, URIC #### [facility] [address] [place] [address] Dr. Sarmad Patino Glucose [Mass/Vol] 99 mg/dL Normal 74-106 The [facility] Comment on above: Performed By: #### D DAVIDSON, MG, PHOS, CMP, LIPID, URIC #### [facility] [address] [address] [address] Sarmad Patino Potassium [Moles/Vol] 4.3 mmol/L Normal 3.5-5.1 The [facility] Comment on above: Performed By: #### D DAVIDSON, MG, PHOS, CMP, LIPID, URIC #### [facility] [address] [place] [address] Dr. Sarmad Patino Protein [Mass/Vol] 6.8 g/dL Normal 6.4-8.2 The [facility] Comment on above: Performed By: #### D DAVIDSON, MG, PHOS, CMP, LIPID, URIC #### [facility] [address] [place] [address] Dr. Sarmad Patino Sodium [Moles/Vol] 139 mmol/L Normal 136-145 [facility] Comment on above: Performed By: #### D DAVIDSON, MG, PHOS, CMP, LIPID, URIC #### [facility] [address] [address] [address] Sarmad Patino Urea nitrogen [Mass/Vol] 16.0 mg/dL Normal 7.0-18.0 The [facility] Comment on above: Performed By: #### D DAVIDSON, MG, PHOS, CMP, LIPID, URIC #### [facility] [address] [place] [address] Dr. Sarmad Patino Urea nitrogen/Creatinine [Mass ratio] 21.3 mg/mg Normal The [facility] Comment on above: Performed By: #### D DAVIDSON, MG, PHOS, CMP, LIPID, URIC #### [facility] [address] [place] [address] Dr. Sarmad Patino URIC ACID SERUMon 02-08-2022 Urate [Mass/Vol] 5.4 mg/dL Normal 2.6-6.0 [facility] Comment on above: Performed By: #### D DAVIDSON, MG, PHOS, CMP, LIPID, URIC #### [facility] [address] [address] [address] Sarmad Patino BK VIRUS PCR QUANTon 022 BKV DNA QUANT PCR PLASMA 27 IU/mL Normal Negative The [facility] Comment on above: Result Comment: The linear range of the assay is 22 - 100,000,000 IU/mL. Performed By: #### D DAVIDSON, MG, PHOS, CMP, LIPID, URIC #### [facility] [address] [place] [address] Dr. Sarmad Patino Log10 BKV DNA Plasma 1.431 log10 IU/mL Normal The [facility] Comment on above: Performed By: #### D DAVIDSON, MG, PHOS, CMP, LIPID, URIC #### [facility] [address] [place] [address] Dr. Sarmad Patino FK506 (TACROLIMUS) WHOLE BLO ODon 01-30-2022 Tacrolimus (FK506), Blood 6.5 ng/mL Normal 2.0-20.0 [facility] Comment on above: Result Comment: Trou gh (immediately following transplant) 15.0 . Trough (steady state, 2 weeks or more after transplant): 3.0 - 8.0 . Performed by LC-MS/MS technology. Performed By: #### D DAVIDSON, MG, PHOS, CMP, LIPID, URIC #### [facility] [address] [place] [address] Dr. Sarmad Patino RAPAMUNE(SIROLIMUS)on 2021 Rapamune(Sirolimus), whole blood 9.9 ng/mL Normal 3.0-20.0 [facility] Comment on above: Result Comment: Perf ormed by LC/MS-MS technology . This test was developed and its performance characteristics determined by [employer]. It has not been cleared or approved by the Food and Drug Administration. Performed By: #### D DAVIDSON, MG, PHOS, CMP, LIPID, URIC #### [facility] [address] [place] [address] Dr. Sarmad Patino BILIRUBIN CONJUGATED (DIRECT )on 01-28-2022 BILI, CONJUGATED 0.1 mg/dL Normal 0.0-0.2 [facility] Comment on above: Performed By: #### D DAVIDSON, MG, PHOS, CMP, LIPID, URIC #### [facility] [address] [place] [address] Dr. Sarmad Patino CBC AUTO DIFFon 01-28-2022 BASO # 0.0 103/ul Normal 0.0-0.1 [facility] Comment on above: Performed By: #### D DAVIDSON, MG, PHOS, CMP, LIPID, URIC #### [facility] [address] [place] [address] Dr. Sarmad Patino Basophils/100 WBC (Bld) 0.3 % Normal 0.2-2.0 The [facility] Comment on above: Performed By: #### D DAVIDSON, MG, PHOS, CMP, LIPID, URIC #### [facility] [address] [place] [address] Dr. Sarmad Patino EO # 0.2 103/ul Normal 0.0-0.7 The [facility] Comment on above: Performed By: #### D DAVIDSON, MG, PHOS, CMP, LIPID, URIC #### [facility] [address] [place] [address] Dr. Sarmad Patino Eosinophils/100 WBC (Bld) 3.1 % Normal 0.9-7.0 The [facility] Comment on above: Performed By: #### D DAVIDSON, MG, PHOS, CMP, LIPID, URIC #### [facility] [address] [place] [address] Dr. Sarmad Patino Erythrocyte distribution width (RBC) [Ratio] 15.4 % Critically high 11.0-15.0 The [facility] Comment on above: Performed By: #### D DAVIDSON, MG, PHOS, CMP, LIPID, URIC #### [facility] [address] [place] [address] Dr. Sarmad Patino Hematocrit (Bld) [Volume fraction] 42.6 % Normal 36.0-48.0 The [facility] Comment on above: Performed By: #### D DAVIDSON, MG, PHOS, CMP, LIPID, URIC #### [facility] [address] [place] [address] Dr. Sarmad Patino Hemoglobin (Bld) [Mass/Vol] 14.0 g/dL Normal 12.0-16.0 [facility] Comment on above: Performed By: #### D DAVIDSON, MG, PHOS, CMP, LIPID, URIC #### [facility] [address] [place] [address] Dr. Sarmad Patino IG # 0.05 10e3/ul Critically high 0.00-0.03 The [place] Comment on above: Performed By: #### D DAVISDON, MG, PHOS, CMP, LIPID, URIC #### [facility] [address] [address] [address] Sarmad Patino IG % 0.7 % Critically high 0.0-0.5 The [facility] Comment on above: Performed By: #### D DAVIDSON, MG, PHOS, CMP, LIPID, URIC #### [facility] [address] [place] [address] Dr. Sarmad Patino LYMPH # 1.1 103/ul Critically low 1.2-3.8 The [facility] Comment on above: Performed By: #### D DAVIDSON, MG, PHOS, CMP, LIPID, URIC #### [facility] [address] [address] [address] Sarmad Patino Lymphocytes/100 WBC (Bld) 15.8 % Critically low 20.5-60.0 [facility] Comment on above: Performed By: #### D DAVIDSON, MG, PHOS, CMP, LIPID, URIC #### [facility] [address] [place] [address] Dr. Sarmad Patino MANUAL DIFF REQ NO Normal The [facility] Comment on above: Performed By: #### D DAVIDSON, MG, PHOS, CMP, LIPID, URIC #### [facility] [address] [place] [address] Dr. Sarmad Patino MCH (RBC) [Entitic mass] 28.3 pg Normal 26.7-34.0 [facility] Comment on above: Performed By: #### D DAVIDSON, MG, PHOS, CMP, LIPID, URIC #### [facility] [address] [place] [address] Dr. Sarmad Patino MCHC (RBC) [Mass/Vol] 32.9 g/dL Normal 29.9-35.2 The [facility] Comment on above: Performed By: #### D ADVIDSON, MG, PHOS, CMP, LIPID, URIC #### [facility] [address] [place] [address] Dr. Sarmad Patino MCV (RBC) [Entitic vol] 86.2 fL Normal 81.0-99.0 The [facility] Comment on above: Performed By: #### D DAVIDSON, MG, PHOS, CMP, LIPID, URIC #### [facility] [address] [place] [address] Dr. Sarmad Patino MONO # 0.8 103/ul Normal 0.3-0.8 The [facility] Comment on above: Performed By: #### D DAVIDSON, MG, PHOS, CMP, LIPID, URIC #### [facility] [address] [place] [address] Dr. Sarmad Patino Monocytes/100 WBC (Bld) 11.0 % Normal 1.7-12.0 The [facility] Comment on above: Performed By: #### D DAVIDSON, MG, PHOS, CMP, LIPID, URIC #### [facility] [address] [place] [address] Dr. Sarmad Patino NEUT # 4.8 103/ul Normal 1.4-6.5 The [facility] Comment on above: Performed By: #### D DAVIDSON, MG, PHOS, CMP, LIPID, URIC #### [facility] [address] [place] [address] Dr. Sarmad Patino Neutrophils/100 WBC (Bld) 69.1 % Normal 43.0-75.0 The [facility] Comment on above: Performed By: #### D DAVIDSON, MG, PHOS, CMP, LIPID, URIC #### [facility] [address] [place] [address] Dr. Sarmad Patino Platelet mean volume (Bld) [Entitic vol] 10.8 fL Normal 9.5-13.5 The [facility] Comment on above: Performed By: #### D DAVIDSON, MG, PHOS, CMP, LIPID, URIC #### [facility] [address] [place] [address] Dr. Sarmad Patino PLT 208 103/ul Normal 150-450 [facility] Comment on above: Performed By: #### D DAVIDSON, MG, PHOS, CMP, LIPID, URIC #### [facility] [address] [address] [address] Sarmad Patino RBC 4.94 106/ul Normal 4.20-5.40 [facility] Comment on above: Performed By: #### D DAVIDSON, MG, PHOS, CMP, LIPID, URIC #### [facility] [address] [address] [address] Sarmad Patino WBC 7.0 103/ul Normal 4.0-11.0 [facility] Comment on above: Performed By: #### D DAVIDSON, MG, PHOS, CMP, LIPID, URIC #### [facility] [address] [place] [address] Dr. Sarmad Patino GLYCOHEMOGLOBIN A1Con 2021 ADA RECOMMENDATION SEE BELOW Normal [facility] Comment on above: Result Comment: ADA RECOMMENDED LIMIT 4.0 - 6.0 ADA THERAPEUTIC TARGET < 7.0 ACTION SUGGESTED > 7.0 Performed By: #### D DAVIDSON, MG, PHOS, CMP, LIPID, URIC #### [facility] [address] [place] [address] Dr. Sarmad Patino Glucose [Mass/Vol] 137 mg/dL Normal [facility] Comment on above: Performed By: #### D DAVIDSON, MG, PHOS, CMP, LIPID, URIC #### [facility] [address] [place] [address] Dr. Sarmad Patino HbA1c (Bld) [Mass fraction] 6.4 % Critically high 4.5-6.2 [facility] Comment on above: Performed By: #### D DAVIDSON, MG, PHOS, CMP, LIPID, URIC #### [facility] [address] [place] [address] Dr. Sarmad Patino LIPID PROFILEon 01-28-2022 CHOL-HDL RATIO NORM SEE BELOW Normal [facility] Comment on above: Result Comment: 3.3 - 4.4 LOW RISK 4.4 - 7.1 AVERAGE RISK 7.1 - 11.0 MODERATE RISK >11.0 HIGH RISK Performed By: #### D DAVIDSON, MG, PHOS, CMP, LIPID, URIC #### [facility] [address] [address] [address] Sarmad Patino Cholesterol [Mass/Vol] 209 mg/dL Critically high <=200 [facility] Comment on above: Performed By: #### D DAVIDSON, MG, PHOS, CMP, LIPID, URIC #### [facility] [address] [address] [address] Sarmad Patino Cholesterol in HDL [Mass/Vol] 59 mg/dL Normal 40-60 [facility] Comment on above: Performed By: #### D DAVIDSON, MG, PHOS, CMP, LIPID, URIC #### [facility] [address] [address] [address] Sarmad Patino Cholesterol in LDL [Mass/Vol] 100.4 mg/dL Normal [facility] Comment on above: Performed By: #### D DAVIDSON, MG, PHOS, CMP, LIPID, URIC #### [facility] [address] [place] [address] Dr. Sarmad Patino Cholesterol.total/Cho lesterol in HDL [Mass ratio] 3.5 {ratio} Normal [facility] Comment on above: Performed By: #### D DAVIDSON, MG, PHOS, CMP, LIPID, URIC #### [facility] [address] [place] [address] Dr. Sarmad Patino HDL NORMAL > or = 60 mg/dl - LO W CARDIOVASCULAR RISK <40 mg/dl - HIGH CARDIOVASCULAR RISK Normal [facility] Comment on above: Performed By: #### D DAVIDSON, MG, PHOS, CMP, LIPID, URIC #### [facility] [address] [place] [address] Dr. Sarmad Patino LDL CALC NORMAL SEE BELOW Normal The [facility] Comment on above: Result Comment: <100 mg/dl OPTIMAL 100 - 129 mg/dl NEAR OR ABOVE OPTIMAL 130 - 159 mg/dl BORDERLINE HIGH 160 - 189 mg/dl HIGH >190 mg/dl VERY HIGH Performed By: #### D DAVIDSON, MG, PHOS, CMP, LIPID, URIC #### [facility] [address] [address] [address] Sarmad Patino Triglyceride [Mass/Vol] 248 mg/dL Critically high <=150 [facility] Comment on above: Performed By: #### D DAVIDSON, MG, PHOS, CMP, LIPID, URIC #### [facility] [address] [place] [address] Dr. Sarmad Patino VLDL CALC 49.6 mg/dL Normal [facility] Comment on above: Performed By: #### D DAVIDSON, MG, PHOS, CMP, LIPID, URIC #### [facility] [address] [place] [address] Dr. Sarmad Patino MAGNESIUMon 01-28-2022 Magnesium [Mass/Vol] 1.6 mg/dL Critically low 1.8-2.4 [facility] Comment on above: Performed By: #### D DAVIDSON, MG, PHOS, CMP, LIPID, URIC #### [facility] [address] [place] [address] Dr. Sarmad Patino PHOSPHORUSon 01-28-2022 Phosphate [Mass/Vol] 2.7 mg/dL Normal 2.6-4.7 [facility] Comment on above: Performed By: #### D DAVIDSON, MG, PHOS, CMP, LIPID, URIC #### [facility] [address] [place] [address] Dr. Sarmad Patino PROF 14(COMP METB)on 022 Albumin [Mass/Vol] 3.3 g/dL Critically low 3.4-5.0 [facility] Comment on above: Performed By: #### D DAVIDSON, MG, PHOS, CMP, LIPID, URIC #### [facility] [address] [place] [address] Dr. Sarmad Patino Albumin/Globulin [Mass ratio] 0.9 {ratio} Normal [facility] Comment on above: Performed By: #### D DAVIDSON, MG, PHOS, CMP, LIPID, URIC #### [facility] [address] [place] [address] Dr. Sarmad Patino ALP [Catalytic activity/Vol] 124 U/L Critically high 46-116 The [facility] Comment on above: Performed By: #### D DAVIDSON, MG, PHOS, CMP, LIPID, URIC #### [facility] [address] [place] [address] Dr. Sarmad Patino ALT [Catalytic activity/Vol] 28 U/L Normal 14-59 [facility] Comment on above: Performed By: #### D DAVIDSON, MG, PHOS, CMP, LIPID, URIC #### [facility] [address] [place] [address] Dr. Sarmad Patino Anion gap [Moles/Vol] 12.0 mmol/L Normal [facility] Comment on above: Performed By: #### D DAVIDSON, MG, PHOS, CMP, LIPID, URIC #### [facility] [address] [place] [address] Dr. Sarmad Patino AST [Catalytic activity/Vol] 20 U/L Normal 15-37 [facility] Comment on above: Performed By: #### D DAVIDSON, MG, PHOS, CMP, LIPID, URIC #### [facility] [address] [place] [address] Dr. Sarmad Patino Bilirubin [Mass/Vol] 0.5 mg/dL Normal 0.2-1.0 [facility] Comment on above: Performed By: #### D DAVIDSON, MG, PHOS, CMP, LIPID, URIC #### [facility] [address] [place] [address] Dr. Sarmad Patino Calcium [Mass/Vol] 9.1 mg/dL Normal 8.5-10.1 [facility] Comment on above: Performed By: #### D DAVIDSON, MG, PHOS, CMP, LIPID, URIC #### [facility] [address] [place] [address] Dr. Sarmad Patino Chloride [Moles/Vol] 104 mmol/L Normal 98-107 [facility] Comment on above: Performed By: #### D DAVIDSON, MG, PHOS, CMP, LIPID, URIC #### [facility] [address] [place] [address] Dr. Sarmad Patino CO2 [Moles/Vol] 25.7 mmol/L Normal 21.0-32.0 [facility] Comment on above: Performed By: #### D DAVIDSON, MG, PHOS, CMP, LIPID, URIC #### [facility] [address] [place] [address] Dr. Sarmad Patino Creatinine [Mass/Vol] 0.77 mg/dL Normal 0.55-1.02 [facility] Comment on above: Performed By: #### D DAVIDSON, MG, PHOS, CMP, LIPID, URIC #### [facility] [address] [place] [address] Dr. Sarmad Patino EGFR-AF JAPANESE >60 Normal >=60 [facility] Comment on above: Performed By: #### D DAVIDSON, MG, PHOS, CMP, LIPID, URIC #### [facility] [address] [place] [address] Dr. Sarmad Patino EGFR-NON AF JAPANESE >60 Normal >=60 [facility] Comment on above: Performed By: #### D DAVIDSON, MG, PHOS, CMP, LIPID, URIC #### [facility] [address] [place] [address] Dr. Sarmad Patino Globulin (S) [Mass/Vol] 3.7 g/dL Normal [facility] Comment on above: Performed By: #### D DAVIDSON, MG, PHOS, CMP, LIPID, URIC #### [facility] [address] [place] [address] Dr. Sarmad Patino Glucose [Mass/Vol] 108 mg/dL Critically high 74-106 [facility] Comment on above: Performed By: #### D DAVIDSON, MG, PHOS, CMP, LIPID, URIC #### [facility] [address] [place] [address] Dr. Sarmad Patino Potassium [Moles/Vol] 3.7 mmol/L Normal 3.5-5.1 [facility] Comment on above: Performed By: #### D DAVIDSON, MG, PHOS, CMP, LIPID, URIC #### [facility] [address] [place] [address] Dr. Sarmad Patino Protein [Mass/Vol] 7.0 g/dL Normal 6.4-8.2 The [facility] Comment on above: Performed By: #### D DAVIDSON, MG, PHOS, CMP, LIPID, URIC #### [facility] [address] [address] [address] Sarmad Patino Sodium [Moles/Vol] 138 mmol/L Normal 136-145 [facility] Comment on above: Performed By: #### D DAVIDSON, MG, PHOS, CMP, LIPID, URIC #### [facility] [address] [address] [address] Sarmad Patino Urea nitrogen [Mass/Vol] 15.0 mg/dL Normal 7.0-18.0 [facility] Comment on above: Performed By: #### D DAVIDSON, MG, PHOS, CMP, LIPID, URIC #### [facility] [address] [address] [address] Sarmad Patino Urea nitrogen/Creatinine [Mass ratio] 19.5 mg/mg Normal [facility] Comment on above: Performed By: #### D DAVIDSON, MG, PHOS, CMP, LIPID, URIC #### [facility] [address] [address] [address] Sarmad Patino URIC ACID SERUMon 01-28-2022 Urate [Mass/Vol] 4.3 mg/dL Normal 2.6-6.0 [facility] Comment on above: Performed By: #### D DAVIDSON, MG, PHOS, CMP, LIPID, URIC #### [facility] [address] [address] [address] Sarmad Patino Quick Strepon 01-12-2022 S. pyogenes Org specific cx Ql (Throat) Negative [facility] [employer] Other Quick Strep [employer] [facility] [employer] Other XR CHEST 1 Von 01-07-2022 XR [...] BRITTON BERNARD Date: 2022-01-07 15:00 Normal The [facility] CBC W MANUAL DIFFon 01-04-20 22 ATYPICAL LYMPH # 1.40 103/ul Normal The [place] Comment on above: Performed By: #### D DAVIDSON, MG, PHOS, CMP, LIPID, URIC #### [facility] [address] [place] [address] Dr. Sarmad Patino ATYPICAL LYMPH % 10 % Normal [facility] [facility] Comment on above: Performed By: #### D DAVIDSON, MG, PHOS, CMP, LIPID, URIC #### [facility] [address] [place] [address] Dr. Sarmad Patino BAND # 0.6 103/ul Critically high 0.0-0.3 The [facility] Comment on above: Performed By: #### D DAVIDSON, MG, PHOS, CMP, LIPID, URIC #### [facility] [address] [address] [address] Sarmad Patino BAND % 4 % Normal 0-5 The [facility] Comment on above: Performed By: #### D DAVIDSON, MG, PHOS, CMP, LIPID, URIC #### [facility] [address] [address] [address] Sarmad Patino BASOM # 0.00 103/ul Normal 0.00-0.10 The [facility] Comment on above: Performed By: #### D DAVIDSON, MG, PHOS, CMP, LIPID, URIC #### [facility] [address] [address] [address] Sarmad Patino BASOM % 0.0 % Critically low 0.2-2.0 The [facility] Comment on above: Performed By: #### D DAVIDSON, MG, PHOS, CMP, LIPID, URIC #### [facility] [address] [place] [address] Dr. Sarmad Patino BLAST # Normal The [facility] Comment on above: Performed By: #### D DAVIDSON, MG, PHOS, CMP, LIPID, URIC #### [facility] [address] [address] [address] Sarmad Patino BLAST % Normal [facility] Comment on above: Performed By: #### D DAVIDSON, MG, PHOS, CMP, LIPID, URIC #### [facility] [address] [address] [address] Sarmad Patino CORRECTED WBC Normal 4.0-11.0 [facility] Comment on above: Performed By: #### D DAVIDSON, MG, PHOS, CMP, LIPID, URIC #### [facility] [address] [place] [address] Dr. Sarmad Patino EOS # 0.14 103/ul Normal 0.00-0.70 [facility] Comment on above: Performed By: #### D DAVIDSON, MG, PHOS, CMP, LIPID, URIC #### [facility] [address] [place] [address] Dr. Sarmad Patino EOS% 1.0 % Normal 0.9-7.0 [facility] Comment on above: Performed By: #### D DAVIDSON, MG, PHOS, CMP, LIPID, URIC #### [facility] [address] [address] [address] Sarmad Patino HCT 42.8 % Normal 36.0-48.0 [facility] Comment on above: Performed By: #### D DAVIDSON, MG, PHOS, CMP, LIPID, URIC #### [facility] [address] [address] [address] Sarmad Patino HGB 14.2 g/dl Normal 12.0-16.0 [facility] Comment on above: Performed By: #### D DAVIDSON, MG, PHOS, CMP, LIPID, URIC #### [facility] [address] [place] [address] Dr. Sarmad Patino LYMPHM # 0.00 103/ul Critically low 1.20-3.80 [facility] Comment on above: Performed By: #### D DAVIDSON, MG, PHOS, CMP, LIPID, URIC #### [facility] [address] [place] [address] Dr. Sarmad Patino LYMPHM% 0.0 % Critically low 20.5-60.0 [facility] Comment on above: Performed By: #### D DAVIDSON, MG, PHOS, CMP, LIPID, URIC #### [facility] [address] [address] [address] Sarmad Patino MCH 28.8 pg Normal 26.7-34.0 [facility] Comment on above: Performed By: #### D DAVIDSON, MG, PHOS, CMP, LIPID, URIC #### [facility] [address] [place] [address] Dr. Sarmad Patino MCHC 33.2 g/dl Normal 29.9-35.2 The [facility] Comment on above: Performed By: #### D DAVIDSON, MG, PHOS, CMP, LIPID, URIC #### [facility] [address] [place] [address] Dr. Sarmad Ptaino MCV 86.8 fL Normal 81.0-99.0 [facility] Comment on above: Performed By: #### D DAVIDSON, MG, PHOS, CMP, LIPID, URIC #### [facility] [address] [place] [address] Dr. Sarmad Patino METAMYELOCYTE # Normal The [facility] Comment on above: Performed By: #### D DAVIDSON, MG, PHOS, CMP, LIPID, URIC #### [facility] [address] [place] [address] Dr. Sarmad Patino METAMYELOCYTE % Normal The [facility] Comment on above: Performed By: #### D DAVIDSON, MG, PHOS, CMP, LIPID, URIC #### [facility] [address] [address] [address] Sarmad Patino MONOM# 0.84 103/ul Critically high 0.30-0.80 [facility] Comment on above: Performed By: #### D DAVIDSON, MG, PHOS, CMP, LIPID, URIC #### [facility] [address] [place] [address] Dr. Sarmad Patino MONOM% 6.0 % Normal 1.7-12.0 [facility] Comment on above: Performed By: #### D DAVIDSON, MG, PHOS, CMP, LIPID, URIC #### [facility] [address] [address] [address] Sarmad Patino MPV 11.5 fL Normal 9.5-13.5 [facility] Comment on above: Performed By: #### D DAVIDSON, MG, PHOS, CMP, LIPID, URIC #### [facility] [address] [address] [address] Sarmad Patino MYELOCYTE # 0.3 103/ul Normal [facility] Comment on above: Performed By: #### D DAVIDSON, MG, PHOS, CMP, LIPID, URIC #### [facility] [address] [address] [address] Sarmad Patino MYELOCYTE % 2 % Normal [facility] Comment on above: Performed By: #### D DAVIDSON, MG, PHOS, CMP, LIPID, URIC #### [facility] [address] [address] [address] Sarmad Patino NRBC Normal [facility] Comment on above: Performed By: #### D DAVIDSON, MG, PHOS, CMP, LIPID, URIC #### [facility] [address] [address] [address] Sarmad Patino PLT 180 103/ul Normal 150-450 [facility] Comment on above: Performed By: #### D DAVIDSON, MG, PHOS, CMP, LIPID, URIC #### [facility] [address] [address] [address] Sarmad Patino RBC 4.93 106/ul Normal 4.20-5.40 [facility] Comment on above: Performed By: #### D DAVIDSON, MG, PHOS, CMP, LIPID, URIC #### [facility] [address] [address] [address] Sarmad Patino RDW 13.9 % Normal 11.0-15.0 [facility] Comment on above: Performed By: #### D DAVIDSON, MG, PHOS, CMP, LIPID, URIC #### [facility] [address] [address] [address] Sarmad Patino SEG # 10.78 103/ul Critically high 1.40-6.50 [facility] Comment on above: Performed By: #### D DAVIDSON, MG, PHOS, CMP, LIPID, URIC #### [facility] [address], [place] [address] Dr. Sarmad Patino SEG % 77.0 % Critically high 43.0-75.0 The [facility] Comment on above: Performed By: #### D DAVIDSON, MG, PHOS, CMP, LIPID, URIC #### [facility] [address], [place] [address] Dr. Sarmad Patino WBC 14.0 103/ul Critically high 4.0-11.0 [facility] Comment on above: Performed By: #### D DAVIDSON, MG, PHOS, CMP, LIPID, URIC #### [facility] [address], [place] [address] NECK [address] W [...] middle ear cavities clear. Skull base intact. Shaper And Presser spaces normal. Parotid glands normal. Submandibular glands [...] F HOPPER Date: 2022-01-03 10:40 Normal The [facility] Cov[facility] PCR ([facility]on SARS-CoV-2 (COVID-19) RNA MURALI+probe Ql (Unsp spec) Detected Critically abnormal NOT DETECTED The [facility] Comment on above: Result Comment: This test is not yet approved or cleared by the [place] FDA. When there are no FDA-approved or cleared tests available, and other criteria are met, FDA can make tests available under an emergency access mechanism called an Emergency Use Authorization (EUA). The EUA for this test is supported by the [place] of Health and Human Service's declaration that [...] DAVIDSON, MG, PHOS, CMP, LIPID, URIC #### [facility] [address] [place] [address] Dr. Sarmad Patino GROUP A STREP CULTUREon S. pyogenes Ag Ql (Unsp spec) Culture Observations: Negative for Group A Streptococcus Normal The [facility] Comment on above: Performed By: #### U JUVE, LIPID, MG, CMP, DBIL, PHOS #### [facility] [address] [address] [address] Sarmad Patino INFLUENZA A AND B AGon 01-03 INFLUENZA A AG Negative Normal NEGATIVE SEE COMMENT The [facility] Comment on above: Performed By: #### D DAVIDSON, MG, PHOS, CMP, LIPID, URIC #### [facility] [address] [address] [address] Sarmad Patino INFLUENZA B AG Negative Normal NEGATIVE SEE COMMENT The [facility] Comment on above: Performed By: #### D DAVIDSON, MG, PHOS, CMP, LIPID, URIC #### [facility] [address] [place] [address] Dr. Sarmad Patino INTERNAL CONTROLS Within Normal Limits Normal Wi thin Normal Limits [facility] Comment on above: Performed By: #### D DAVIDSON, MG, PHOS, CMP, LIPID, URIC #### [facility] [address] [place] [address] Dr. Sarmad Patino PROF 14(COMP METB)on 022 Albumin [Mass/Vol] 2.5 g/dL Critically low 3.4-5.0 Th e [facility] Comment on above: Performed By: #### U JUVE, LIPID, MG, CMP, DBIL, PHOS #### [facility] [address] [place] [address] Dr. Sarmad Patino Albumin/Globulin [Mass ratio] 0.5 {ratio} Normal [facility] Comment on above: Performed By: #### U JUVE, LIPID, MG, CMP, DBIL, PHOS #### [facility] [address] [place] [address] Dr. Sarmad Patino ALP [Catalytic activity/Vol] 185 U/L Critically high 46-116 The [facility] Comment on above: Performed By: #### U JUVE, LIPID, MG, CMP, DBIL, PHOS #### [facility] [address] [place] [address] Dr. Sarmad Patino ALT [Catalytic activity/Vol] 108 U/L Critically high 14-59 [facility] Comment on above: Performed By: #### U JUVE, LIPID, MG, CMP, DBIL, PHOS #### [facility] [address] [address] [address] Sarmad Patino Anion gap [Moles/Vol] 8.3 mmol/L Normal [facility] Comment on above: Performed By: #### U JUVE, LIPID, MG, CMP, DBIL, PHOS #### [facility] [address] [place] [address] Dr. Sarmad Patino AST [Catalytic activity/Vol] 59 U/L Critically high 15-37 [facility] Comment on above: Performed By: #### U JUVE, LIPID, MG, CMP, DBIL, PHOS #### [facility] [address] [place] [address] Dr. Sarmad Patino Bilirubin [Mass/Vol] 0.6 mg/dL Normal 0.2-1.0 [facility] Comment on above: Performed By: #### U JUVE, LIPID, MG, CMP, DBIL, PHOS #### [facility] [address] [place] [address] Dr. Sarmad Patino Calcium [Mass/Vol] 9.0 mg/dL Normal 8.5-10.1 [facility] Comment on above: Performed By: #### U JUVE, LIPID, MG, CMP, DBIL, PHOS #### [facility] [address] [place] [address] Dr. Sarmad Patino Chloride [Moles/Vol] 100 mmol/L Normal 98-107 The [facility] Comment on above: Performed By: #### U JUVE, LIPID, MG, CMP, DBIL, PHOS #### [facility] [address] [place] [address] Dr. Sarmad Patino CO2 [Moles/Vol] 29.0 mmol/L Normal 21.0-32.0 [facility] Comment on above: Performed By: #### U JUVE, LIPID, MG, CMP, DBIL, PHOS #### [facility] [address] [place] [address] Dr. Sarmad Patino Creatinine [Mass/Vol] 1.05 mg/dL Critically high 0.55-1.02 [facility] Comment on above: Performed By: #### U JUVE, LIPID, MG, CMP, DBIL, PHOS #### [facility] [address] [place] [address] Dr. Sarmad Patino EGFR-AF JAPANESE >60 Normal >=60 The [facility] Comment on above: Performed By: #### U JUVE, LIPID, MG, CMP, DBIL, PHOS #### [facility] [address] [place] [address] Dr. Sarmad Patino EGFR-NON AF JAPANESE 53 mL/min/1.73m2 Critically low >=60 [facility] Comment on above: Performed By: #### U JUVE, LIPID, MG, CMP, DBIL, PHOS #### [facility] [address] [place] [address] Dr. Sarmad Patino Globulin (S) [Mass/Vol] 4.6 g/dL Normal [facility] Comment on above: Performed By: #### U JUVE, LIPID, MG, CMP, DBIL, PHOS #### [facility] [address] [place] [address] Dr. Sarmad Patino Glucose [Mass/Vol] 154 mg/dL Critically high 74-106 [facility] Comment on above: Performed By: #### U JUVE, LIPID, MG, CMP, DBIL, PHOS #### [facility] [address] [place] [address] Dr. Sarmad Patino Potassium [Moles/Vol] 3.3 mmol/L Critically low 3.5-5.1 [facility] Comment on above: Performed By: #### U JUVE, LIPID, MG, CMP, DBIL, PHOS #### [facility] [address] [place] [address] Dr. Sarmad Patino Protein [Mass/Vol] 7.1 g/dL Normal 6.4-8.2 [facility] Comment on above: Performed By: #### U JUVE, LIPID, MG, CMP, DBIL, PHOS #### [facility] [address] [place] [address] Dr. Sarmad Patino Sodium [Moles/Vol] 134 mmol/L Critically low 136-145 [facility] Comment on above: Performed By: #### U JUVE, LIPID, MG, CMP, DBIL, PHOS #### [facility] [address] [place] [address] Dr. Sarmad Patino Urea nitrogen [Mass/Vol] 24.0 mg/dL Critically high 7.0-18.0 [facility] Comment on above: Performed By: #### U JUVE, LIPID, MG, CMP, DBIL, PHOS #### [facility] [address], [place] [address] Dr. Sarmad Patino Urea nitrogen/Creatinine [Mass ratio] 22.9 mg/mg Normal The [facility] Comment on above: Performed By: #### U JUVE, LIPID, MG, CMP, DBIL, PHOS #### [facility] [address], [place] [address] Dr. Sarmad Patino STREPT SCREENon 01-03-2022 STREP SCREEN A Negative Normal NEGATIVE [facility] Comment on above: Performed By: #### U JUVE, LIPID, MG, CMP, DBIL, PHOS #### [facility] [address], [place] [address] Dr. Sarmad Patino XR CHEST 2 Von [...] MAYRA WHITESIDE Date: 2022-01-03 03:54 Normal The [facility] Quick Strepon 12-28-2021 S. pyogenes Org specific cx Ql (Throat) Negative [facility] Quick Strep [facility] Other SARS-CoV-2 (COVID-19) RNA NA A+probe Ql (Resp)on 12-25-2021 SARS-CoV-2 (COVID-19) RNA MURALI+probe Ql (Unsp spec) Negative [facility] Other FK506 (TACROLIMUS) WHOLE BLO ODon 12-08-2021 Tacrolimus (FK506), Blood 6.6 ng/mL Normal 2.0-20.0 [facility] Comment on above: Result Comment: Trou gh (immediately following transplant) 15.0 . Trough (steady state, 2 weeks or more after transplant): 3.0 - 8.0 . Performed by LC-MS/MS technology. Performed By: #### D DAVIDSON, MG, PHOS, CMP, LIPID, URIC #### [facility] [address] [place] [address] Dr. Sarmad Patino RAPAMUNE(SIROLIMUS)on 2021 Rapamune(Sirolimus), whole blood 9.6 ng/mL Normal 3.0-20.0 [facility] Comment on above: Result Comment: Perf ormed by LC/MS-MS technology . This test was developed and its performance characteristics determined by [employer]. It has not been cleared or approved by the Food and Drug Administration. Performed By: #### D DAVIDSON, MG, PHOS, CMP, LIPID, URIC #### [facility] [address] [place] [address] Dr. Sarmad Patino BILIRUBIN CONJUGATED (DIRECT )on 12-05-2021 BILI, CONJUGATED 0.1 mg/dL Normal 0.0-0.2 The [facility] Comment on above: Performed By: #### D DAVIDSON, MG, PHOS, CMP, LIPID, URIC #### [facility] [address] [place] [address] Dr. Sarmad Patino CBC W MANUAL DIFFon 12-06-19 22 ATYPICAL LYMPH # Normal The [facility] Comment on above: Performed By: #### D DAVIDSON, MG, PHOS, CMP, LIPID, URIC #### [facility] [address] [place] [address] Dr. Sarmad Patino ATYPICAL LYMPH % Normal The [facility] Comment on above: Performed By: #### D DAVIDSON, MG, PHOS, CMP, LIPID, URIC #### [facility] [address] [place] [address] Dr. Sarmad Patino BAND # Normal 0.0-0.3 The [facility] Comment on above: Performed By: #### D DAVIDSON, MG, PHOS, CMP, LIPID, URIC #### [facility] [address] [place] [address] Dr. Sarmad Patino BAND % Normal 0-5 [facility] Comment on above: Performed By: #### D DAVIDSON, MG, PHOS, CMP, LIPID, URIC #### [facility] [address] [place] [address] Dr. Sarmad Patino BASOM # 0.00 103/ul Normal 0.00-0.10 [facility] Comment on above: Performed By: #### D DAVIDSON, MG, PHOS, CMP, LIPID, URIC #### [facility] [address] [place] [address] Dr. Sarmad Patino BASOM % 0.0 % Critically low 0.2-2.0 [facility] Comment on above: Performed By: #### D DAVIDSON, MG, PHOS, CMP, LIPID, URIC #### [facility] [address] [place] [address] Dr. Sarmad Patino BLAST # Normal [facility] Comment on above: Performed By: #### D DAVIDSON, MG, PHOS, CMP, LIPID, URIC #### [facility] [address] [place] [address] Dr. Sarmad Patino BLAST % Normal [facility] Comment on above: Performed By: #### D DAVIDSON, MG, PHOS, CMP, LIPID, URIC #### [facility] [address] [place] [address] Dr. Sarmad Patino CORRECTED WBC Normal 4.0-11.0 [facility] Comment on above: Performed By: #### D DAVIDSON, MG, PHOS, CMP, LIPID, URIC #### [facility] [address] [place] [address] Dr. Sarmad Patino EOS # 0.15 103/ul Normal 0.00-0.70 [facility] Comment on above: Performed By: #### D DAVIDSON, MG, PHOS, CMP, LIPID, URIC #### [facility] [address] [place] [address] Dr. Sarmad Patino EOS% 2.0 % Normal 0.9-7.0 [facility] Comment on above: Performed By: #### D DAVIDSON, MG, PHOS, CMP, LIPID, URIC #### [facility] [address] [address] [address] Sarmad Patino HCT 47.5 % Normal 36.0-48.0 [facility] Comment on above: Performed By: #### D DAVIDSON, MG, PHOS, CMP, LIPID, URIC #### [facility] [address] [address] [address] Sarmad Patino HGB 15.6 g/dl Normal 12.0-16.0 The [facility] Comment on above: Performed By: #### D DAVIDSON, MG, PHOS, CMP, LIPID, URIC #### [facility] [address] [place] [address] Dr. Sarmad Patino LYMPHM # 1.46 103/ul Normal 1.20-3.80 [facility] Comment on above: Performed By: #### D DAVIDSON, MG, PHOS, CMP, LIPID, URIC #### [facility] [address] [place] [address] Dr. Sarmad Patino LYMPHM% 19.0 % Critically low 20.5-60.0 [facility] Comment on above: Performed By: #### D DAVIDSON, MG, PHOS, CMP, LIPID, URIC #### [facility] [address] [place] [address] Dr. Sarmad Patino MCH 28.9 pg Normal 26.7-34.0 [facility] Comment on above: Performed By: #### D DAVIDSON, MG, PHOS, CMP, LIPID, URIC #### [facility] [address] [place] [address] Dr. Sarmad Patino MCHC 32.8 g/dl Normal 29.9-35.2 The [facility] Comment on above: Performed By: #### D DAVIDSON, MG, PHOS, CMP, LIPID, URIC #### [facility] [address] [place] [address] Dr. Sarmad Patino MCV 88.1 fL Normal 81.0-99.0 [facility] Comment on above: Performed By: #### D DAVIDSON, MG, PHOS, CMP, LIPID, URIC #### [facility] [address] [place] [address] Dr. Sarmad Patino METAMYELOCYTE # Normal The [facility] Comment on above: Performed By: #### D DAVIDSON, MG, PHOS, CMP, LIPID, URIC #### [facility] [address] [address] [address] Sarmad Patino METAMYELOCYTE % Normal The [facility] Comment on above: Performed By: #### D DAVIDSON, MG, PHOS, CMP, LIPID, URIC #### [facility] [address] [address] [address] Sarmad Patino MONOM# 0.85 103/ul Critically high 0.30-0.80 The [facility] Comment on above: Performed By: #### D DAVIDSON, MG, PHOS, CMP, LIPID, URIC #### [facility] [address] [address] [address] Sarmad Patino MONOM% 11.0 % Normal 1.7-12.0 [facility] Comment on above: Performed By: #### D DAVIDSON, MG, PHOS, CMP, LIPID, URIC #### [facility] [address] [address] [address] Sarmad Patino MPV 11.3 fL Normal 9.5-13.5 [facility] Comment on above: Performed By: #### D DAVIDSON, MG, PHOS, CMP, LIPID, URIC #### [facility] [address] [address] [address] Sarmad Patino MYELOCYTE # Normal The [facility] Comment on above: Performed By: #### D DAVIDSON, MG, PHOS, CMP, LIPID, URIC #### [facility] [address] [address] [address] Sarmad Patino MYELOCYTE % Normal The [facility] Comment on above: Performed By: #### D DAVIDSON, MG, PHOS, CMP, LIPID, URIC #### [facility] [address] [address] [address] Sarmad Patino NRBC Normal The [facility] Comment on above: Performed By: #### D DAVIDSON, MG, PHOS, CMP, LIPID, URIC #### [facility] [address] [address] [address] Sarmad Patino PLT 214 103/ul Normal 150-450 The [facility] Comment on above: Performed By: #### D DAVIDSON, MG, PHOS, CMP, LIPID, URIC #### [facility] [address] [address] [address] Sarmad Patino RBC 5.39 106/ul Normal 4.20-5.40 [facility] Comment on above: Performed By: #### D DAVIDSON, MG, PHOS, CMP, LIPID, URIC #### [facility] [address] [place] [address] Dr. Sarmad Patino RDW 13.8 % Normal 11.0-15.0 [facility] [facility] Comment on above: Performed By: #### D DAVIDSON, MG, PHOS, CMP, LIPID, URIC #### [facility] [address] [place] [address] Dr. Sarmad Patino SEG # 5.24 103/ul Normal 1.40-6.50 [facility] Comment on above: Performed By: #### D DAVIDSON, MG, PHOS, CMP, LIPID, URIC #### [facility] [address] [place] [address] Dr. Sarmad Patino SEG % 68.0 % Normal 43.0-75.0 [facility] Comment on above: Performed By: #### D DAVIDSON, MG, PHOS, CMP, LIPID, URIC #### [facility] [address] [place] [address] Dr. Sarmad Patino WBC 7.7 103/ul Normal 4.0-11.0 [facility] Comment on above: Performed By: #### D DAVIDSON, MG, PHOS, CMP, LIPID, URIC #### [facility] [address] [address] [address] Sarmad Patino LIPID PROFILEon 12-05-2021 CHOL-HDL RATIO NORM SEE BELOW Normal [facility] Comment on above: Result Comment: 3.3 - 4.4 LOW RISK 4.4 - 7.1 AVERAGE RISK 7.1 - 11.0 MODERATE RISK >11.0 HIGH RISK Performed By: #### D DAVIDSON, MG, PHOS, CMP, LIPID, URIC #### [facility] [address] [address] [address] Sarmad Patino Cholesterol [Mass/Vol] 170 mg/dL Normal <=200 [facility] Comment on above: Performed By: #### D DAVIDSON, MG, PHOS, CMP, LIPID, URIC #### [facility] [address] [address] [address] Sarmad Patino Cholesterol in HDL [Mass/Vol] 54 mg/dL Normal 40-60 [facility] Comment on above: Performed By: #### D DAVIDSON, MG, PHOS, CMP, LIPID, URIC #### [facility] [address] [address] [address] Sarmad Patino Cholesterol in LDL [Mass/Vol] 92.2 mg/dL Normal [facility] Comment on above: Performed By: #### D DAVIDSON, MG, PHOS, CMP, LIPID, URIC #### [facility] [address] [address] [address] Sarmad Patino Cholesterol.total/Cho lesterol in HDL [Mass ratio] 3.1 {ratio} Normal [facility] Comment on above: Performed By: #### D DAVIDSON, MG, PHOS, CMP, LIPID, URIC #### [facility] [address] [address] [address] Sarmad Patino HDL NORMAL > or = 60 mg/dl - LO W CARDIOVASCULAR RISK <40 mg/dl - HIGH CARDIOVASCULAR RISK Normal [facility] Comment on above: Performed By: #### D DAVIDSON, MG, PHOS, CMP, LIPID, URIC #### [facility] [address] [address] [address] Sarmad Patino LDL CALC NORMAL SEE BELOW Normal [facility] Comment on above: Result Comment: <100 mg/dl OPTIMAL 100 - 129 mg/dl NEAR OR ABOVE OPTIMAL 130 - 159 mg/dl BORDERLINE HIGH 160 - 189 mg/dl HIGH >190 mg/dl VERY HIGH Performed By: #### D DAVIDSON, MG, PHOS, CMP, LIPID, URIC #### [facility] [address] [address] [address] Sarmad Patino Triglyceride [Mass/Vol] 119 mg/dL Normal <=150 [facility] Comment on above: Performed By: #### D DAVIDSON, MG, PHOS, CMP, LIPID, URIC #### [facility] [address] [place] [address] Dr. aSrmad Patino VLDL CALC 23.8 mg/dL Normal [facility] Comment on above: Performed By: #### D DAVIDSON, MG, PHOS, CMP, LIPID, URIC #### [facility] [address] [place] [address] Dr. Sarmad Patino MAGNESIUMon 12-05-2021 Magnesium [Mass/Vol] 1.8 mg/dL Normal 1.8-2.4 [facility] Comment on above: Performed By: #### D DAVIDSON, MG, PHOS, CMP, LIPID, URIC #### [facility] [address] [place] [address] Dr. Sarmad Patino PHOSPHORUSon 12-05-2021 Phosphate [Mass/Vol] 3.8 mg/dL Normal 2.6-4.7 [facility] Comment on above: Performed By: #### D DAVIDSON, MG, PHOS, CMP, LIPID, URIC #### [facility] [address] [place] [address] Dr. Sarmad Patino PROF 14(COMP METB)on 022 Albumin [Mass/Vol] 3.7 g/dL Normal 3.4-5.0 [facility] Comment on above: Performed By: #### D DAVIDSON, MG, PHOS, CMP, LIPID, URIC #### [facility] [address] [place] [address] Dr. Sarmad Patino Albumin/Globulin [Mass ratio] 1.0 {ratio} Normal [facility] Comment on above: Performed By: #### D DAVIDSON, MG, PHOS, CMP, LIPID, URIC #### [facility] [address] [place] [address] Dr. Sarmad Patino ALP [Catalytic activity/Vol] 151 U/L Critically high 46-116 [facility] Comment on above: Performed By: #### D DAVIDSON, MG, PHOS, CMP, LIPID, URIC #### [facility] [address] [place] [address] Dr. Sarmad Patino ALT [Catalytic activity/Vol] 27 U/L Normal 14-59 [facility] Comment on above: Performed By: #### D DAVIDSON, MG, PHOS, CMP, LIPID, URIC #### [facility] [address] [place] [address] Dr. Sarmad Patino Anion gap [Moles/Vol] 14.5 mmol/L Normal Th e [facility] Comment on above: Performed By: #### D DAVIDSON, MG, PHOS, CMP, LIPID, URIC #### [facility] [address] [place] [address] Dr. Sarmad Paitno AST [Catalytic activity/Vol] 25 U/L Normal 15-37 [facility] Comment on above: Performed By: #### D DAVIDSON, MG, PHOS, CMP, LIPID, URIC #### [facility] [address] [place] [address] Dr. Sarmad Patino Bilirubin [Mass/Vol] 0.4 mg/dL Normal 0.2-1.0 [facility] Comment on above: Performed By: #### D DAVIDSON, MG, PHOS, CMP, LIPID, URIC #### [facility] [address] [place] [address] Dr. Sarmad Patino Calcium [Mass/Vol] 9.4 mg/dL Normal 8.5-10.1 [facility] Comment on above: Performed By: #### D DAVIDSON, MG, PHOS, CMP, LIPID, URIC #### [facility] [address] [place] [address] Dr. Sarmad Patino Chloride [Moles/Vol] 103 mmol/L Normal 98-107 [facility] Comment on above: Performed By: #### D DAVIDSON, MG, PHOS, CMP, LIPID, URIC #### [facility] [address] [place] [address] Dr. Sarmad Patino CO2 [Moles/Vol] 26.5 mmol/L Normal 21.0-32.0 [facility] Comment on above: Performed By: #### D DAVIDSON, MG, PHOS, CMP, LIPID, URIC #### [facility] [address] [place] [address] Dr. Sarmad Patino Creatinine [Mass/Vol] 0.87 mg/dL Normal 0.55-1.02 The [facility] Comment on above: Performed By: #### D DAVIDSON, MG, PHOS, CMP, LIPID, URIC #### [facility] [address] [address] [address] Sarmad Patino EGFR-AF JAPANESE >60 Normal >=60 [facility] Comment on above: Performed By: #### D DAVIDSON, MG, PHOS, CMP, LIPID, URIC #### [facility] [address] [address] [address] Sarmad Patino EGFR-NON AF JAPANESE >60 Normal >=60 The [facility] Comment on above: Performed By: #### D DAVIDSON, MG, PHOS, CMP, LIPID, URIC #### [facility] [address] [address] [address] aSrmad Patino Globulin (S) [Mass/Vol] 3.8 g/dL Normal [facility] Comment on above: Performed By: #### D DAVIDSON, MG, PHOS, CMP, LIPID, URIC #### [facility] [address] [address] [address] Sarmad Patino Glucose [Mass/Vol] 104 mg/dL Normal 74-106 [facility] Comment on above: Performed By: #### D DAVIDSON, MG, PHOS, CMP, LIPID, URIC #### [facility] [address] [address] [address] Sarmad Patino Potassium [Moles/Vol] 4.0 mmol/L Normal 3.5-5.1 The [facility] Comment on above: Performed By: #### D DAVIDSON, MG, PHOS, CMP, LIPID, URIC #### [facility] [address] [address] [address] Sarmad Patino Protein [Mass/Vol] 7.5 g/dL Normal 6.4-8.2 The [facility] Comment on above: Performed By: #### D DAVIDSON, MG, PHOS, CMP, LIPID, URIC #### [facility] [address] [address] [address] Sarmad Patino Sodium [Moles/Vol] 140 mmol/L Normal 136-145 [facility] Comment on above: Performed By: #### D DAVIDSON, MG, PHOS, CMP, LIPID, URIC #### [facility] [address] [address] [address] Sarmad Patino Urea nitrogen [Mass/Vol] 19.0 mg/dL Critically high 7.0-18.0 [facility] Comment on above: Performed By: #### D DAVIDSON, MG, PHOS, CMP, LIPID, URIC #### [facility] [address] [place] [address] Dr. Sarmad Patino Urea nitrogen/Creatinine [Mass ratio] 21.8 mg/mg Normal [facility] Comment on above: Performed By: #### D DAVIDSON, MG, PHOS, CMP, LIPID, URIC #### [facility] [address] [place] [address] Dr. Sarmad Patino URIC ACID SERUMon 12-05-2021 Urate [Mass/Vol] 5.2 mg/dL Normal 2.6-6.0 [facility] Comment on above: Performed By: #### D DAVIDSON, MG, PHOS, CMP, LIPID, URIC #### [facility] [address] [address] [address] Sarmad CHRISTIEMU, WHOLE BLOODon EVEROLIMUS 7.0 ng/mL Normal 3.0-8.0 [facility] Comment on above: Result Comment: Perf ormed by LC-MS/MS technology. Performed By: #### D DAVIDSON, MG, PHOS, CMP, LIPID, URIC #### [facility] [address] [place] [address] Dr. Sarmad Patino FK506 (TACROLIMUS) WHOLE BLO ODon 11-10-2021 Tacrolimus (FK506), Blood 6.4 ng/mL Normal 2.0-20.0 [facility] Comment on above: Result Comment: Trou gh (immediately following transplant) 15.0 . Trough (steady state, 2 weeks or more after transplant): 3.0 - 8.0 . Performed by LC-MS/MS technology. Performed By: #### D DAVIDSON, MG, PHOS, CMP, LIPID, URIC #### [facility] [address] [place] [address] Dr. Sarmad Patino BK VIRUS PCR QUANTon 022 BKV DNA QUANT PCR PLASMA Negative Normal Negative The [facility] Comment on above: Result Comment: No B K DNA detected. . The linear range of the assay is 22 - 100,000,000 IU/mL. Performed By: #### U JUVE, LIPID, MG, CMP, DBIL, PHOS #### [facility] [address] [place] [address] Dr. Sarmad Patino Log10 BKV DNA Plasma Normal The [facility] Comment on above: Performed By: #### U JUVE, LIPID, MG, CMP, DBIL, PHOS #### [facility] [address] [place] [address] Dr. Sarmad Patino BILIRUBIN CONJUGATED (DIRECT )on 11-07-2021 BILI, CONJUGATED 0.1 mg/dL Normal 0.0-0.2 [facility] Comment on above: Performed By: #### D DAVIDSON, MG, PHOS, CMP, LIPID, URIC #### [facility] [address] [place] [address] Dr. Sarmad Patino CBC AUTO DIFFon 11-07-2021 BASO # 0.0 103/ul Normal 0.0-0.1 [facility] Comment on above: Performed By: #### D DAVIDSON, MG, PHOS, CMP, LIPID, URIC #### [facility] [address] [place] [address] Dr. Sarmad Patino Basophils/100 WBC (Bld) 0.3 % Normal 0.2-2.0 [facility] Comment on above: Performed By: #### D DAVIDSON, MG, PHOS, CMP, LIPID, URIC #### [facility] [address] [place] [address] Dr. Sarmad Patino EO # 0.1 103/ul Normal 0.0-0.7 [facility] Comment on above: Performed By: #### D DAVIDSON, MG, PHOS, CMP, LIPID, URIC #### [facility] [address] [place] [address] Dr. Sarmad Patino Eosinophils/100 WBC (Bld) 2.1 % Normal 0.9-7.0 [facility] Comment on above: Performed By: #### D DAVIDSON, MG, PHOS, CMP, LIPID, URIC #### [facility] [address] [place] [address] Dr. Sarmad Patino Erythrocyte distribution width (RBC) [Ratio] 13.5 % Normal 11.0-15.0 The [facility] Comment on above: Performed By: #### D DAVIDSON, MG, PHOS, CMP, LIPID, URIC #### [facility] [address] [place] [address] Dr. Sarmad Patino Hematocrit (Bld) [Volume fraction] 46.7 % Normal 36.0-48.0 [facility] Comment on above: Performed By: #### D DAVIDSON, MG, PHOS, CMP, LIPID, URIC #### [facility] [address] [place] [address] Dr. Sarmad Patino Hemoglobin (Bld) [Mass/Vol] 15.1 g/dL Normal 12.0-16.0 [facility] Comment on above: Performed By: #### D DAVIDSON, MG, PHOS, CMP, LIPID, URIC #### [facility] [address] [place] [address] Dr. Sarmad Patino IG # 0.03 10e3/ul Normal 0.00-0.03 [facility] Comment on above: Performed By: #### D DAVIDSON, MG, PHOS, CMP, LIPID, URIC #### [facility] [address] [place] [address] Dr. Sarmad Patino IG % 0.5 % Normal 0.0-0.5 The [facility] Comment on above: Performed By: #### D DAVIDSON, MG, PHOS, CMP, LIPID, URIC #### [facility] [address] [place] [address] Dr. Sarmad Patino LYMPH # 1.3 103/ul Normal 1.2-3.8 [facility] Comment on above: Performed By: #### D DAVIDSON, MG, PHOS, CMP, LIPID, URIC #### [facility] [address] [place], [place] [id number] Dr. Sarmad Patino Lymphocytes/100 WBC (Bld) 19.9 % Critically low 20.5-60.0 [facility] Comment on above: Performed By: #### D DAVIDSON, MG, PHOS, CMP, LIPID, URIC #### [facility] [address] [place] [address] Dr. Sarmad Patino MANUAL DIFF REQ NO Normal [facility] Comment on above: Performed By: #### D DAVIDSON, MG, PHOS, CMP, LIPID, URIC #### [facility] [address] [place] [address] Dr. Sarmad Patino MCH (RBC) [Entitic mass] 28.6 pg Normal 26.7-34.0 The [facility] Comment on above: Performed By: #### D DAVIDSON, MG, PHOS, CMP, LIPID, URIC #### [facility] [address] [place] [address] Dr. Sarmad Patino MCHC (RBC) [Mass/Vol] 32.3 g/dL Normal 29.9-35.2 The [facility] Comment on above: Performed By: #### D DAVIDSON, MG, PHOS, CMP, LIPID, URIC #### [facility] [address] [place] [address] Dr. Sarmad Patino MCV (RBC) [Entitic vol] 88.4 fL Normal 81.0-99.0 The [facility] Comment on above: Performed By: #### D DAVIDSON, MG, PHOS, CMP, LIPID, URIC #### [facility] [address] [place] [address] Dr. Sarmad Patino MONO # 0.8 103/ul Normal 0.3-0.8 The [facility] Comment on above: Performed By: #### D DAVIDSON, MG, PHOS, CMP, LIPID, URIC #### [facility] [address] [place] [address] Dr. Sarmad Patino Monocytes/100 WBC (Bld) 12.9 % Critically high 1.7-12.0 [facility] Comment on above: Performed By: #### D DAVIDSON, MG, PHOS, CMP, LIPID, URIC #### [facility] [address] [place] [address] Dr. Sarmad Patino NEUT # 4.0 103/ul Normal 1.4-6.5 [facility] Comment on above: Performed By: #### D DAVIDSON, MG, PHOS, CMP, LIPID, URIC #### [facility] [address] [address] [address] Sarmad Patino Neutrophils/100 WBC (Bld) 64.3 % Normal 43.0-75.0 [facility] Comment on above: Performed By: #### D DAVIDSON, MG, PHOS, CMP, LIPID, URIC #### [facility] [address] [place] [address] Dr. Sarmad Patino Platelet mean volume (Bld) [Entitic vol] 11.3 fL Normal 9.5-13.5 [facility] Comment on above: Performed By: #### D DAVIDSON, MG, PHOS, CMP, LIPID, URIC #### [facility] [address] [place] [address] Dr. Sarmad Patino PLT 241 103/ul Normal 150-450 [facility] Comment on above: Performed By: #### D DAVIDSON, MG, PHOS, CMP, LIPID, URIC #### [facility] [address] [place] [address] Dr. Sarmad Patino RBC 5.28 106/ul Normal 4.20-5.40 [facility] Comment on above: Performed By: #### D DAVIDSON, MG, PHOS, CMP, LIPID, URIC #### [facility] [address] [place] [address] Dr. Sarmad Patino WBC 6.3 103/ul Normal 4.0-11.0 [facility] Comment on above: Performed By: #### D DAVIDSON, MG, PHOS, CMP, LIPID, URIC #### [facility] [address] [place] [address] Dr. Sarmad Patino GLYCOHEMOGLOBIN A1Con 2021 ADA RECOMMENDATION SEE BELOW Normal The [facility] Comment on above: Result Comment: ADA RECOMMENDED LIMIT 4.0 - 6.0 ADA THERAPEUTIC TARGET < 7.0 ACTION SUGGESTED > 7.0 Performed By: #### D DAVIDSON, MG, PHOS, CMP, LIPID, URIC #### [facility] [address] [address] [address] Sarmad Patino Glucose [Mass/Vol] 120 mg/dL Normal [facility] Comment on above: Performed By: #### D DAVIDSON, MG, PHOS, CMP, LIPID, URIC #### [facility] [address] [address] [address] Sarmad Patino HbA1c (Bld) [Mass fraction] 5.8 % Normal 4.5-6.2 [facility] Comment on above: Performed By: #### D DAVIDSON, MG, PHOS, CMP, LIPID, URIC #### [facility] [address] [address] [address] Sarmad Patino LIPID PROFILEon 11-07-2021 CHOL-HDL RATIO NORM SEE BELOW Normal [facility] Comment on above: Result Comment: 3.3 - 4.4 LOW RISK 4.4 - 7.1 AVERAGE RISK 7.1 - 11.0 MODERATE RISK >11.0 HIGH RISK Performed By: #### D DAVIDSON, MG, PHOS, CMP, LIPID, URIC #### [facility] [address] [address] [address] Sarmad Patino Cholesterol [Mass/Vol] 157 mg/dL Normal <=200 [facility] Comment on above: Performed By: #### D DAVIDSON, MG, PHOS, CMP, LIPID, URIC #### [facility] [address] [address] [address] Sarmad Patino Cholesterol in HDL [Mass/Vol] 48 mg/dL Normal 40-60 [facility] Comment on above: Performed By: #### D DAVIDSON, MG, PHOS, CMP, LIPID, URIC #### [facility] [address] [address] [address] Sarmad Patino Cholesterol in LDL [Mass/Vol] 89.6 mg/dL Normal [facility] Comment on above: Performed By: #### D DAVIDSON, MG, PHOS, CMP, LIPID, URIC #### [facility] [address] [address] [address] Sarmad Patino Cholesterol.total/Cho lesterol in HDL [Mass ratio] 3.3 {ratio} Normal The [facility] Comment on above: Performed By: #### D DAVIDSON, MG, PHOS, CMP, LIPID, URIC #### [facility] [address] [address] [address] Sarmad Patino HDL NORMAL > or = 60 mg/dl - LO W CARDIOVASCULAR RISK <40 mg/dl - HIGH CARDIOVASCULAR RISK Normal The [facility] Comment on above: Performed By: #### D DAVIDSON, MG, PHOS, CMP, LIPID, URIC #### [facility] [address] [address] [address] Sarmad Patino LDL CALC NORMAL SEE BELOW Normal [facility] Comment on above: Result Comment: <100 mg/dl OPTIMAL 100 - 129 mg/dl NEAR OR ABOVE OPTIMAL 130 - 159 mg/dl BORDERLINE HIGH 160 - 189 mg/dl HIGH >190 mg/dl VERY HIGH Performed By: #### D DAVIDSON, MG, PHOS, CMP, LIPID, URIC #### [facility] [address] [address] [address] Sarmad Patino Triglyceride [Mass/Vol] 97 mg/dL Normal <=150 The [facility] Comment on above: Performed By: #### D DAVIDSON, MG, PHOS, CMP, LIPID, URIC #### [facility] [address] [address] [address] Sarmad Patino VLDL CALC 19.4 mg/dL Normal The [facility] Comment on above: Performed By: #### D DAVIDSON, MG, PHOS, CMP, LIPID, URIC #### [facility] [address] [address] [address] Sarmad Patino MAGNESIUMon 11-07-2021 Magnesium [Mass/Vol] 1.9 mg/dL Normal 1.8-2.4 The [facility] Comment on above: Performed By: #### D DAVIDSON, MG, PHOS, CMP, LIPID, URIC #### [facility] [address] [place] [address] Dr. Sarmad Patino PHOSPHORUSon 11-07-2021 Phosphate [Mass/Vol] 3.4 mg/dL Normal 2.6-4.7 The [facility] Comment on above: Performed By: #### D DAVIDSON, MG, PHOS, CMP, LIPID, URIC #### [facility] [address] [address] [address] Sarmad Patino PROF 14(COMP METB)on 022 Albumin [Mass/Vol] 3.6 g/dL Normal 3.4-5.0 [facility] Comment on above: Performed By: #### D DAVIDSON, MG, PHOS, CMP, LIPID, URIC #### [facility] [address] [address] [address] Sarmad Patino Albumin/Globulin [Mass ratio] 0.9 {ratio} Normal [facility] Comment on above: Performed By: #### D DAVIDSON, MG, PHOS, CMP, LIPID, URIC #### [facility] [address] [place] [address] Dr. Sarmad Patino ALP [Catalytic activity/Vol] 158 U/L Critically high 46-116 [facility] Comment on above: Performed By: #### D DAVIDSON, MG, PHOS, CMP, LIPID, URIC #### [facility] [address] [place] [address] Dr. Sarmad Patino ALT [Catalytic activity/Vol] 23 U/L Normal 14-59 [facility] Comment on above: Performed By: #### D DAVIDSON, MG, PHOS, CMP, LIPID, URIC #### [facility] [address] [address] [address] Sarmad Patino Anion gap [Moles/Vol] 14.8 mmol/L Normal [facility] Comment on above: Performed By: #### D DAVIDSON, MG, PHOS, CMP, LIPID, URIC #### [facility] [address] [place] [address] Dr. Sarmad Patino AST [Catalytic activity/Vol] 18 U/L Normal 15-37 [facility] Comment on above: Performed By: #### D DAVIDSON, MG, PHOS, CMP, LIPID, URIC #### [facility] [address] [address] [address] Sarmad Patino Bilirubin [Mass/Vol] 0.4 mg/dL Normal 0.2-1.0 [facility] Comment on above: Performed By: #### D DAVIDSON, MG, PHOS, CMP, LIPID, URIC #### [facility] [address] [address] [address] Sarmad Patino Calcium [Mass/Vol] 9.3 mg/dL Normal 8.5-10.1 [facility] Comment on above: Performed By: #### D DAVIDSON, MG, PHOS, CMP, LIPID, URIC #### [facility] [address] [address] [address] Sarmad Patino Chloride [Moles/Vol] 105 mmol/L Normal 98-107 The [facility] Comment on above: Performed By: #### D DAVIDSON, MG, PHOS, CMP, LIPID, URIC #### [facility] [address] [place] [address] Dr. Sarmad Patino CO2 [Moles/Vol] 26.1 mmol/L Normal 21.0-32.0 [facility] Comment on above: Performed By: #### D DAVIDSON, MG, PHOS, CMP, LIPID, URIC #### [facility] [address] [place] [address] Dr. Sarmad Patino Creatinine [Mass/Vol] 0.84 mg/dL Normal 0.55-1.02 [facility] Comment on above: Performed By: #### D DAVIDSON, MG, PHOS, CMP, LIPID, URIC #### [facility] [address] [place] [address] Dr. Sarmad Patino EGFR-AF JAPANESE >60 Normal >=60 The [facility] Comment on above: Performed By: #### D DAVIDSON, MG, PHOS, CMP, LIPID, URIC #### [facility] [address] [place] [address] Dr. Sarmad Patino EGFR-NON AF JAPANESE >60 Normal >=60 The [facility] Comment on above: Performed By: #### D DAVIDSON, MG, PHOS, CMP, LIPID, URIC #### [facility] [address] [place] [address] Dr. Sarmad Patino Globulin (S) [Mass/Vol] 3.8 g/dL Normal The [facility] Comment on above: Performed By: #### D DAVIDSON, MG, PHOS, CMP, LIPID, URIC #### [facility] [address] [address] [address] Sarmad Patino Glucose [Mass/Vol] 97 mg/dL Normal 74-106 The [facility] Comment on above: Performed By: #### D DAVIDSON, MG, PHOS, CMP, LIPID, URIC #### [facility] [address] [address] [address] Sarmad Patino Potassium [Moles/Vol] 3.9 mmol/L Normal 3.5-5.1 The [facility] Comment on above: Performed By: #### D DAVIDSON, MG, PHOS, CMP, LIPID, URIC #### [facility] [address] [address] [address] Sarmad Patino Protein [Mass/Vol] 7.4 g/dL Normal 6.4-8.2 The [facility] Comment on above: Performed By: #### D DAVIDSON, MG, PHOS, CMP, LIPID, URIC #### [facility] [address] [place] [address] Dr. Sarmad Patino Sodium [Moles/Vol] 142 mmol/L Normal 136-145 The [facility] Comment on above: Performed By: #### D DAVIDSON, MG, PHOS, CMP, LIPID, URIC #### [facility] [address] [address] [address] Sarmad Patino Urea nitrogen [Mass/Vol] 21.0 mg/dL Critically high 7.0-18.0 [facility] Comment on above: Performed By: #### D DAVIDSON, MG, PHOS, CMP, LIPID, URIC #### [facility] [address] [address] [address] Sarmad Patino Urea nitrogen/Creatinine [Mass ratio] 25.0 mg/mg Normal [facility] Comment on above: Performed By: #### D DAVIDSON, MG, PHOS, CMP, LIPID, URIC #### [facility] [address] [address] [address] Sarmad Patino URIC ACID SERUMon 11-07-2021 Urate [Mass/Vol] 5.1 mg/dL Normal 2.6-6.0 [facility] Comment on above: Performed By: #### D DAVIDSON, MG, PHOS, CMP, LIPID, URIC #### [facility] [address] [place] [address] Dr. Sarmad Patino BOX TEST SENT OUTon 10-16-19 22 SENT TO REF LAB 10/15/2021 Normal The [facility] Comment on above: Performed By: #### D DAVIDSON, MG, PHOS, CMP, LIPID, URIC #### [facility] [address] [place] [address] Dr. Sarmad Patino EVEROLIMU, WHOLE BLOODon EVEROLIMUS 6.7 ng/mL Normal 3.0-8.0 The [facility] Comment on above: Result Comment: Perf ormed by LC-MS/MS technology. Performed By: #### D DAVIDSON, MG, PHOS, CMP, LIPID, URIC #### [facility] [address] [place] [address] Dr. Sarmad Patino FK506 (TACROLIMUS) WHOLE BLO ODon 10-10-2021 Tacrolimus (FK506), Blood 5.9 ng/mL Normal 2.0-20.0 The [facility] Comment on above: Result Comment: Trou gh (immediately following transplant) 15.0 . Trough (steady state, 2 weeks or more after transplant): 3.0 - 8.0 . Performed by LC-MS/MS technology. Performed By: #### D DAVIDSON, MG, PHOS, CMP, LIPID, URIC #### [facility] [address] [place] [address] Dr. Sarmad Patino BILIRUBIN CONJUGATED (DIRECT )on 10-08-2021 BILI, CONJUGATED 0.1 mg/dL Normal 0.0-0.2 [facility] Comment on above: Performed By: #### U JUVE, LIPID, MG, CMP, DBIL, PHOS #### [facility] [address] [place] [address] Dr. Sarmad Patino CBC AUTO DIFFon 10-08-2021 BASO # 0.0 103/ul Normal 0.0-0.1 The [facility] Comment on above: Performed By: #### D DAVIDSON, MG, PHOS, CMP, LIPID, URIC #### [facility] [address] [place] [address] Dr. Sarmad Patino Basophils/100 WBC (Bld) 0.1 % Critically low 0.2-2.0 The [facility] Comment on above: Performed By: #### D DAVIDSON, MG, PHOS, CMP, LIPID, URIC #### [facility] [address] [place] [address] Dr. Sarmad Patino EO # 0.1 103/ul Normal 0.0-0.7 The [facility] Comment on above: Performed By: #### D DAVIDSON, MG, PHOS, CMP, LIPID, URIC #### [facility] [address] [place] [address] Dr. Sarmad Patino Eosinophils/100 WBC (Bld) 1.4 % Normal 0.9-7.0 The [facility] Comment on above: Performed By: #### D DAVIDSON, MG, PHOS, CMP, LIPID, URIC #### [facility] [address] [place] [address] Dr. Sarmad Patino Erythrocyte distribution width (RBC) [Ratio] 13.6 % Normal 11.0-15.0 The [facility] Comment on above: Performed By: #### D DAVIDSON, MG, PHOS, CMP, LIPID, URIC #### [facility] [address] [place] [address] Dr. Sarmad Patino Hematocrit (Bld) [Volume fraction] 47.5 % Normal 36.0-48.0 The [facility] Comment on above: Performed By: #### D DAVIDSON, MG, PHOS, CMP, LIPID, URIC #### [facility] [address] [place] [address] Dr. Sarmad Patino Hemoglobin (Bld) [Mass/Vol] 15.7 g/dL Normal 12.0-16.0 The [facility] Comment on above: Performed By: #### D DAVIDSON, MG, PHOS, CMP, LIPID, URIC #### [facility] [address] [place] [address] Dr. Sarmad Patino IG # 0.04 10e3/ul Critically high 0.00-0.03 [facility] Comment on above: Performed By: #### D DAVIDSON, MG, PHOS, CMP, LIPID, URIC #### [facility] [address] [place] [address] Dr. Sarmad Patino IG % 0.5 % Normal 0.0-0.5 [facility] Comment on above: Performed By: #### D DAVIDSON, MG, PHOS, CMP, LIPID, URIC #### [facility] [address] [place] [address] Dr. Sarmad Patino LYMPH # 1.3 103/ul Normal 1.2-3.8 The [facility] Comment on above: Performed By: #### D DAVIDSON, MG, PHOS, CMP, LIPID, URIC #### [facility] [address] [place] [address] Dr. Sarmad Patino Lymphocytes/100 WBC (Bld) 15.4 % Critically low 20.5-60.0 [facility] Comment on above: Performed By: #### D DAVIDSON, MG, PHOS, CMP, LIPID, URIC #### [facility] [address] [place] [address] Dr. Sarmad Patino MANUAL DIFF REQ NO Normal The [facility] Comment on above: Performed By: #### D DAVIDSON, MG, PHOS, CMP, LIPID, URIC #### [facility] [address] [place] [address] Dr. Sarmad Patino MCH (RBC) [Entitic mass] 29.1 pg Normal 26.7-34.0 The [facility] Comment on above: Performed By: #### D DAVIDSON, MG, PHOS, CMP, LIPID, URIC #### [facility] [address] [place] [address] Dr. Sarmad Patino MCHC (RBC) [Mass/Vol] 33.1 g/dL Normal 29.9-35.2 The [facility] Comment on above: Performed By: #### D DAVIDSON, MG, PHOS, CMP, LIPID, URIC #### [facility] [address] [place] [address] Dr. Sarmad Patino MCV (RBC) [Entitic vol] 88.0 fL Normal 81.0-99.0 The [facility] Comment on above: Performed By: #### D DAVIDSON, MG, PHOS, CMP, LIPID, URIC #### [facility] [address] [address] [address] Sarmad Patino MONO # 0.9 103/ul Critically high 0.3-0.8 The [facility] Comment on above: Performed By: #### D DAVIDSON, MG, PHOS, CMP, LIPID, URIC #### [facility] [address] [address] [address] Sarmad Patino Monocytes/100 WBC (Bld) 10.2 % Normal 1.7-12.0 The [facility] Comment on above: Performed By: #### D DAVIDSON, MG, PHOS, CMP, LIPID, URIC #### [facility] [address] [place] [address] Dr. Sarmad Patino NEUT # 6.1 103/ul Normal 1.4-6.5 The [facility] Comment on above: Performed By: #### D DAVIDSON, MG, PHOS, CMP, LIPID, URIC #### [facility] [address] [place] [address] Dr. Sarmad Patino Neutrophils/100 WBC (Bld) 72.4 % Normal 43.0-75.0 The [facility] Comment on above: Performed By: #### D DAVIDSON, MG, PHOS, CMP, LIPID, URIC #### [facility] [address] [place] [address] Dr. Sarmad Ptaino Platelet mean volume (Bld) [Entitic vol] 11.1 fL Normal 9.5-13.5 The [facility] Comment on above: Performed By: #### D DAVIDSON, MG, PHOS, CMP, LIPID, URIC #### [facility] [address] [address] [address] Sarmad Patino PLT 213 103/ul Normal 150-450 The [facility] Comment on above: Performed By: #### D DAVIDSON, MG, PHOS, CMP, LIPID, URIC #### [facility] [address] [place] [address] Dr. Sarmad Patino RBC 5.40 106/ul Normal 4.20-5.40 The [facility] Comment on above: Performed By: #### D DAVIDSON, MG, PHOS, CMP, LIPID, URIC #### [facility] [address] [address] [address] Sarmad Patino WBC 8.4 103/ul Normal 4.0-11.0 [facility] Comment on above: Performed By: #### D DAVIDSON, MG, PHOS, CMP, LIPID, URIC #### [facility] [address] [address] [address] Sarmad Patino LIPID PROFILEon 10-08-2021 CHOL-HDL RATIO NORM SEE BELOW Normal [facility] Comment on above: Result Comment: 3.3 - 4.4 LOW RISK 4.4 - 7.1 AVERAGE RISK 7.1 - 11.0 MODERATE RISK >11.0 HIGH RISK Performed By: #### D DAVIDSON, MG, PHOS, CMP, LIPID, URIC #### [facility] [address] [place] [address] Dr. Sarmad Patino Cholesterol [Mass/Vol] 155 mg/dL Normal <=200 [facility] Comment on above: Performed By: #### D DAVIDSON, MG, PHOS, CMP, LIPID, URIC #### [facility] [address] [place] [address] Dr. Sarmad Patino Cholesterol in HDL [Mass/Vol] 49 mg/dL Normal 40-60 [facility] Comment on above: Performed By: #### D DAVIDSON, MG, PHOS, CMP, LIPID, URIC #### [facility] [address] [address] [address] Sarmad Patino Cholesterol in LDL [Mass/Vol] 73.8 mg/dL Normal [facility] Comment on above: Performed By: #### D DAVIDSON, MG, PHOS, CMP, LIPID, URIC #### [facility] [address] [place] [address] Dr. Sarmad Patino Cholesterol.total/Cho lesterol in HDL [Mass ratio] 3.2 {ratio} Normal [facility] Comment on above: Performed By: #### D DAVIDSON, MG, PHOS, CMP, LIPID, URIC #### [facility] [address] [address] [address] Sarmad Patino HDL NORMAL > or = 60 mg/dl - LO W CARDIOVASCULAR RISK <40 mg/dl - HIGH CARDIOVASCULAR RISK Normal The [facility] Comment on above: Performed By: #### D DAVIDSON, MG, PHOS, CMP, LIPID, URIC #### [facility] [address] [address] [address] Sarmad Patino LDL CALC NORMAL SEE BELOW Normal The [facility] Comment on above: Result Comment: <100 mg/dl OPTIMAL 100 - 129 mg/dl NEAR OR ABOVE OPTIMAL 130 - 159 mg/dl BORDERLINE HIGH 160 - 189 mg/dl HIGH >190 mg/dl VERY HIGH Performed By: #### D DAVIDSON, MG, PHOS, CMP, LIPID, URIC #### [facility] [address] [address] [address] Sarmad Patino Triglyceride [Mass/Vol] 161 mg/dL Critically high <=150 The [facility] Comment on above: Performed By: #### D DAVIDSON, MG, PHOS, CMP, LIPID, URIC #### [facility] [address] [place] [address] Dr. Sarmad Patino VLDL CALC 32.2 mg/dL Normal The [facility] Comment on above: Performed By: #### D DAVIDSON, MG, PHOS, CMP, LIPID, URIC #### [facility] [address] [place] [address] Dr. Sarmad Patino MAGNESIUMon 10-08-2021 Magnesium [Mass/Vol] 1.6 mg/dL Critically low 1.8-2.4 The [facility] Comment on above: Performed By: #### U JUVE, LIPID, MG, CMP, DBIL, PHOS #### [facility] [address] [address] [address] Sarmad Patino PHOSPHORUSon 10-08-2021 Phosphate [Mass/Vol] 3.5 mg/dL Normal 2.6-4.7 The [facility] Comment on above: Performed By: #### U JUVE, LIPID, MG, CMP, DBIL, PHOS #### [facility] [address] [address] [address] Sarmad Patino PROF 14(COMP METB)on 022 Albumin [Mass/Vol] 3.6 g/dL Normal 3.4-5.0 [facility] Comment on above: Performed By: #### D DAVIDSON, MG, PHOS, CMP, LIPID, URIC #### [facility] [address] [place] [address] Dr. Sarmad Patino Albumin/Globulin [Mass ratio] 0.9 {ratio} Normal [facility] Comment on above: Performed By: #### D DAVIDSON, MG, PHOS, CMP, LIPID, URIC #### [facility] [address] [address] [address] Sarmad Patino ALP [Catalytic activity/Vol] 150 U/L Critically high 46-116 [facility] Comment on above: Performed By: #### D DAVIDSON, MG, PHOS, CMP, LIPID, URIC #### [facility] [address] [place] [address] Dr. Sarmad Patino ALT [Catalytic activity/Vol] 21 U/L Normal 14-59 [facility] Comment on above: Performed By: #### D DAVIDSON, MG, PHOS, CMP, LIPID, URIC #### [facility] [address] [place] [address] Dr. Sarmad Patino Anion gap [Moles/Vol] 14.0 mmol/L Normal [facility] Comment on above: Performed By: #### D DAVIDSON, MG, PHOS, CMP, LIPID, URIC #### [facility] [address] [place] [address] Dr. Sarmad Patino AST [Catalytic activity/Vol] 13 U/L Critically low 15-37 [facility] Comment on above: Performed By: #### D DAVIDSON, MG, PHOS, CMP, LIPID, URIC #### [facility] [address] [place] [address] Dr. Sarmad Patino Bilirubin [Mass/Vol] 0.5 mg/dL Normal 0.2-1.0 [facility] Comment on above: Performed By: #### D DAVIDSON, MG, PHOS, CMP, LIPID, URIC #### [facility] [address] [place] [address] Dr. Sarmad Pation Calcium [Mass/Vol] 9.8 mg/dL Normal 8.5-10.1 [facility] Comment on above: Performed By: #### D DAVIDSON, MG, PHOS, CMP, LIPID, URIC #### [facility] [address] [address] [address] Sarmad Patino Chloride [Moles/Vol] 105 mmol/L Normal 98-107 [facility] Comment on above: Performed By: #### D DAVIDSON, MG, PHOS, CMP, LIPID, URIC #### [facility] [address] [address] [address] Sarmad Patino CO2 [Moles/Vol] 25.9 mmol/L Normal 21.0-32.0 [facility] Comment on above: Performed By: #### D DAVIDSON, MG, PHOS, CMP, LIPID, URIC #### [facility] [address] [place] [address] Dr. Sarmad Patino Creatinine [Mass/Vol] 0.81 mg/dL Normal 0.55-1.02 [facility] Comment on above: Performed By: #### D DAVIDSON, MG, PHOS, CMP, LIPID, URIC #### [facility] [address] [place] [address] Dr. Sarmad Patino EGFR-AF JAPANESE >60 Normal >=60 [facility] Comment on above: Performed By: #### D DAVIDSON, MG, PHOS, CMP, LIPID, URIC #### [facility] [address] [address] [address] Sarmad Patino EGFR-NON AF JAPANESE >60 Normal >=60 [facility] Comment on above: Performed By: #### D DAVIDSON, MG, PHOS, CMP, LIPID, URIC #### [facility] [address] [address] [address] Sarmad Patino Globulin (S) [Mass/Vol] 3.8 g/dL Normal [facility] Comment on above: Performed By: #### D DAVIDSON, MG, PHOS, CMP, LIPID, URIC #### [facility] [address] [place] [address] Dr. Sarmad Patino Glucose [Mass/Vol] 101 mg/dL Normal 74-106 The [facility] Comment on above: Performed By: #### D DAVIDSON, MG, PHOS, CMP, LIPID, URIC #### [facility] [address] [address] [address] Sarmad Patino Potassium [Moles/Vol] 3.9 mmol/L Normal 3.5-5.1 The [facility] Comment on above: Performed By: #### D DAVIDSON, MG, PHOS, CMP, LIPID, URIC #### [facility] [address] [place] [address] Dr. Sarmad Patino Protein [Mass/Vol] 7.4 g/dL Normal 6.4-8.2 The [facility] Comment on above: Performed By: #### D DAVIDSON, MG, PHOS, CMP, LIPID, URIC #### [facility] [address] [place] [address] Dr. Sarmad Patino Sodium [Moles/Vol] 141 mmol/L Normal 136-145 The [facility] Comment on above: Performed By: #### D DAVIDSON, MG, PHOS, CMP, LIPID, URIC #### [facility] [address] [address] [address] Sarmad Patino Urea nitrogen [Mass/Vol] 18.0 mg/dL Normal 7.0-18.0 [facility] Comment on above: Performed By: #### D DAVIDSON, MG, PHOS, CMP, LIPID, URIC #### [facility] [address] [place] [address] Dr. Sarmad Patino Urea nitrogen/Creatinine [Mass ratio] 22.2 mg/mg Normal The [facility] Comment on above: Performed By: #### D DAVIDSON, MG, PHOS, CMP, LIPID, URIC #### [facility] [address] [place] [address] Dr. Sarmad Patino URIC ACID SERUMon 10-08-2021 Urate [Mass/Vol] 4.7 mg/dL Normal 2.6-6.0 [facility] Comment on above: Performed By: #### D DAVIDSON, MG, PHOS, CMP, LIPID, URIC #### [facility] [address] [place] [address] Dr. Sarmad Patino EVEROLIMU, WHOLE BLOODon EVEROLIMUS 8.0 ng/mL Normal 3.0-8.0 [facility] Comment on above: Result Comment: Perf ormed by LC-MS/MS technology. Performed By: #### U JUVE, LIPID, MG, CMP, DBIL, PHOS #### [facility] [address] [place] [address] Dr. Sarmad Patino FK506 (TACROLIMUS) WHOLE BLO ODon 09-14-2021 Tacrolimus (FK506), Blood 9.3 ng/mL Normal 2.0-20.0 [facility] Comment on above: Result Comment: Trou gh (immediately following transplant) 15.0 . Trough (steady state, 2 weeks or more after transplant): 3.0 - 8.0 . Performed by LC-MS/MS technology. Performed By: #### U JUVE, LIPID, MG, CMP, DBIL, PHOS #### [facility] [address] [place] [address] Dr. Sarmad Patino BK VIRUS PCR QUANTon 022 BKV DNA QUANT PCR PLASMA Negative Normal Negative The [facility] Comment on above: Result Comment: No B K DNA detected. . The linear range of the assay is 22 - 100,000,000 IU/mL. Performed By: #### D DAVIDSON, MG, PHOS, CMP, LIPID, URIC #### [facility] [address] [place] [address] Dr. Sarmad Patino Log10 BKV DNA Plasma Normal The [facility] Comment on above: Performed By: #### D DAVIDSON, MG, PHOS, CMP, LIPID, URIC #### [facility] [address] [place] [address] Dr. Sarmad Patino BILIRUBIN CONJUGATED (DIRECT )on 09-10-2021 BILI, CONJUGATED 0.1 mg/dL Normal 0.0-0.2 [facility] Comment on above: Performed By: #### D DAVIDSON, MG, PHOS, CMP, LIPID, URIC #### [facility] [address] [place] [address] Dr. Sarmad Patino CBC AUTO DIFFon 09-10-2021 BASO # 0.0 103/ul Normal 0.0-0.1 The [facility] Comment on above: Performed By: #### D DAVIDSON, MG, PHOS, CMP, LIPID, URIC #### [facility] [address] [place] [address] Dr. Sarmad Patino Basophils/100 WBC (Bld) 0.1 % Critically low 0.2-2.0 The [facility] Comment on above: Performed By: #### D DAVIDSON, MG, PHOS, CMP, LIPID, URIC #### [facility] [address] [place] [address] Dr. Sarmad Patino EO # 0.2 103/ul Normal 0.0-0.7 The [facility] Comment on above: Performed By: #### D DAVIDSON, MG, PHOS, CMP, LIPID, URIC #### [facility] [address] [place] [address] Dr. Sarmad Patino Eosinophils/100 WBC (Bld) 2.3 % Normal 0.9-7.0 The [facility] Comment on above: Performed By: #### D DAVIDSON, MG, PHOS, CMP, LIPID, URIC #### [facility] [address] [place] [address] Dr. Sarmad Patino Erythrocyte distribution width (RBC) [Ratio] 13.6 % Normal 11.0-15.0 [facility] Comment on above: Performed By: #### D DAVIDSON, MG, PHOS, CMP, LIPID, URIC #### [facility] [address] [place] [address] Dr. Sarmad Patino Hematocrit (Bld) [Volume fraction] 45.1 % Normal 36.0-48.0 The [facility] Comment on above: Performed By: #### D DAVIDSON, MG, PHOS, CMP, LIPID, URIC #### [facility] [address] [place] [address] Dr. Sarmad Patino Hemoglobin (Bld) [Mass/Vol] 14.7 g/dL Normal 12.0-16.0 [facility] Comment on above: Performed By: #### D DAVIDSON, MG, PHOS, CMP, LIPID, URIC #### [facility] [address] [place] [address] Dr. Sarmad Patino IG # 0.03 10e3/ul Normal 0.00-0.03 [facility] Comment on above: Performed By: #### D DAVIDSON, MG, PHOS, CMP, LIPID, URIC #### [facility] [address] [place] [address] Dr. Sarmda Patino IG % 0.4 % Normal 0.0-0.5 The [facility] Comment on above: Performed By: #### D DAVIDSON, MG, PHOS, CMP, LIPID, URIC #### [facility] [address] [place] [address] Dr. Sarmad Patino LYMPH # 1.3 103/ul Normal 1.2-3.8 The [facility] [facility] Comment on above: Performed By: #### D DAVIDSON, MG, PHOS, CMP, LIPID, URIC #### [facility] [address] [place] [address] Dr. Sarmad Patino Lymphocytes/100 WBC (Bld) 18.9 % Critically low 20.5-60.0 [facility] Comment on above: Performed By: #### D DAVIDSON, MG, PHOS, CMP, LIPID, URIC #### [facility] [address] [place] [address] Dr. Sarmad Patino MANUAL DIFF REQ NO Normal [facility] Comment on above: Performed By: #### D DAVIDSON, MG, PHOS, CMP, LIPID, URIC #### [facility] [address] [place] [address] Dr. Sarmad Patino MCH (RBC) [Entitic mass] 29.0 pg Normal 26.7-34.0 [facility] Comment on above: Performed By: #### D DAVIDSON, MG, PHOS, CMP, LIPID, URIC #### [facility] [address] [place] [address] Dr. Sarmad Patino MCHC (RBC) [Mass/Vol] 32.6 g/dL Normal 29.9-35.2 [facility] Comment on above: Performed By: #### D DAVIDSON, MG, PHOS, CMP, LIPID, URIC #### [facility] [address] [place] [address] Dr. Sarmad Patino MCV (RBC) [Entitic vol] 89.0 fL Normal 81.0-99.0 [facility] Comment on above: Performed By: #### D DAVIDSON, MG, PHOS, CMP, LIPID, URIC #### [facility] [address] [place] [address] Dr. Sarmad Patino MONO # 0.8 103/ul Normal 0.3-0.8 The [facility] Comment on above: Performed By: #### D DAVIDSON, MG, PHOS, CMP, LIPID, URIC #### [facility] [address] [place] [address] Dr. Sarmad Patino Monocytes/100 WBC (Bld) 11.9 % Normal 1.7-12.0 The [facility] Comment on above: Performed By: #### D DAVIDSON, MG, PHOS, CMP, LIPID, URIC #### [facility] [address] [place] [address] Dr. Sarmad Patino NEUT # 4.6 103/ul Normal 1.4-6.5 The [facility] Comment on above: Performed By: #### D DAVIDSON, MG, PHOS, CMP, LIPID, URIC #### [facility] [address] [place] [address] Dr. Sarmad Patino Neutrophils/100 WBC (Bld) 66.4 % Normal 43.0-75.0 The [facility] Comment on above: Performed By: #### D DAVIDSON, MG, PHOS, CMP, LIPID, URIC #### [facility] [address] [place] [address] Dr. Sarmad Patino Platelet mean volume (Bld) [Entitic vol] 10.6 fL Normal 9.5-13.5 The [facility] Comment on above: Performed By: #### D DAVIDSON, MG, PHOS, CMP, LIPID, URIC #### [facility] [address] [place] [address] Dr. Sarmad Patino PLT 233 103/ul Normal 150-450 The [facility] Comment on above: Performed By: #### D DAVIDSON, MG, PHOS, CMP, LIPID, URIC #### [facility] [address] [address] [address] Sarmad Patino RBC 5.07 106/ul Normal 4.20-5.40 [facility] Comment on above: Performed By: #### D DAVIDSON, MG, PHOS, CMP, LIPID, URIC #### [facility] [address] [address] [address] Sarmad Patino WBC 6.9 103/ul Normal 4.0-11.0 [facility] Comment on above: Performed By: #### D DAVIDSON, MG, PHOS, CMP, LIPID, URIC #### [facility] [address] [place] [address] Dr. Sarmad Patino GLYCOHEMOGLOBIN A1Con 2021 ADA RECOMMENDATION SEE BELOW Normal The [facility] Comment on above: Result Comment: ADA RECOMMENDED LIMIT 4.0 - 6.0 ADA THERAPEUTIC TARGET < 7.0 ACTION SUGGESTED > 7.0 Performed By: #### D DAVIDSON, MG, PHOS, CMP, LIPID, URIC #### [facility] [address] [place] [address] Dr. Sarmad Patino Glucose [Mass/Vol] 120 mg/dL Normal The [facility] Comment on above: Performed By: #### D DAVIDSON, MG, PHOS, CMP, LIPID, URIC #### [facility] [address] [place] [address] Dr. Sarmad Patino HbA1c (Bld) [Mass fraction] 5.8 % Normal 4.5-6.2 [facility] Comment on above: Performed By: #### D DAVIDSON, MG, PHOS, CMP, LIPID, URIC #### [facility] [address] [place] [address] Dr. Sarmad Patino LIPID PROFILEon 09-10-2021 CHOL-HDL RATIO NORM SEE BELOW Normal [facility] Comment on above: Result Comment: 3.3 - 4.4 LOW RISK 4.4 - 7.1 AVERAGE RISK 7.1 - 11.0 MODERATE RISK >11.0 HIGH RISK Performed By: #### D DAVIDSON, MG, PHOS, CMP, LIPID, URIC #### [facility] [address] [place] [address] Dr. Sarmad Patino Cholesterol [Mass/Vol] 150 mg/dL Normal <=200 [facility] Comment on above: Performed By: #### D DAVIDSON, MG, PHOS, CMP, LIPID, URIC #### [facility] [address] [address] [address] Sarmad Patino Cholesterol in HDL [Mass/Vol] 47 mg/dL Normal 40-60 [facility] Comment on above: Performed By: #### D DAVIDSON, MG, PHOS, CMP, LIPID, URIC #### [facility] [address] [address] [address] Sarmad Patino Cholesterol in LDL [Mass/Vol] 78.4 mg/dL Normal [facility] Comment on above: Performed By: #### D DAVIDSON, MG, PHOS, CMP, LIPID, URIC #### [facility] [address] [address] [address] Sarmad Patino Cholesterol.total/Cho lesterol in HDL [Mass ratio] 3.2 {ratio} Normal [facility] Comment on above: Performed By: #### D DAVIDSON, MG, PHOS, CMP, LIPID, URIC #### [facility] [address] [address] [address] Sarmad Patino HDL NORMAL > or = 60 mg/dl - LO W CARDIOVASCULAR RISK <40 mg/dl - HIGH CARDIOVASCULAR RISK Normal [facility] Comment on above: Performed By: #### D DAVIDSON, MG, PHOS, CMP, LIPID, URIC #### [facility] [address] [address] [address] Sarmad Patino LDL CALC NORMAL SEE BELOW Normal The [facility] Comment on above: Result Comment: <100 mg/dl OPTIMAL 100 - 129 mg/dl NEAR OR ABOVE OPTIMAL 130 - 159 mg/dl BORDERLINE HIGH 160 - 189 mg/dl HIGH >190 mg/dl VERY HIGH Performed By: #### D DAVIDSON, MG, PHOS, CMP, LIPID, URIC #### [facility] [address] [address] [address] Sarmad Patino Triglyceride [Mass/Vol] 123 mg/dL Normal <=150 [facility] Comment on above: Performed By: #### D DAVIDSON, MG, PHOS, CMP, LIPID, URIC #### [facility] [address] [address] [address] Sarmad Patino VLDL CALC 24.6 mg/dL Normal [facility] Comment on above: Performed By: #### D DAVIDSON, MG, PHOS, CMP, LIPID, URIC #### [facility] [address] [address] [address] Sarmad Patino MAGNESIUMon 09-10-2021 Magnesium [Mass/Vol] 1.5 mg/dL Critically low 1.8-2.4 [facility] Comment on above: Performed By: #### D DAVIDSON, MG, PHOS, CMP, LIPID, URIC #### [facility] [address] [place] [address] Dr. Sarmad Patino PHOSPHORUSon 09-10-2021 Phosphate [Mass/Vol] 3.8 mg/dL Normal 2.6-4.7 [facility] Comment on above: Performed By: #### D DAVIDSON, MG, PHOS, CMP, LIPID, URIC #### [facility] [address] [place] [address] Dr. Sarmad Patino PROF 14(COMP METB)on 022 Albumin [Mass/Vol] 3.4 g/dL Normal 3.4-5.0 [facility] Comment on above: Performed By: #### D DAVIDSON, MG, PHOS, CMP, LIPID, URIC #### [facility] [address] [place] [address] Dr. Sarmad Patino Albumin/Globulin [Mass ratio] 0.9 {ratio} Normal [facility] Comment on above: Performed By: #### D DAVIDSON, MG, PHOS, CMP, LIPID, URIC #### [facility] [address] [address] [address] Sarmad Patino ALP [Catalytic activity/Vol] 143 U/L Critically high 46-116 [facility] Comment on above: Performed By: #### D DAVIDSON, MG, PHOS, CMP, LIPID, URIC #### [facility] [address] [place] [address] Dr. Sarmad Patino ALT [Catalytic activity/Vol] 19 U/L Normal 14-59 [facility] Comment on above: Performed By: #### D DAVIDSON, MG, PHOS, CMP, LIPID, URIC #### [facility] [address] [address] [address] Sarmad Patino Anion gap [Moles/Vol] 13.4 mmol/L Normal Th e [facility] Comment on above: Performed By: #### D DAVIDSON, MG, PHOS, CMP, LIPID, URIC #### [facility] [address] [address] [address] Sarmad Patino AST [Catalytic activity/Vol] 24 U/L Normal 15-37 [facility] Comment on above: Performed By: #### D DAVIDSON, MG, PHOS, CMP, LIPID, URIC #### [facility] [address] [place] [address] Dr. Sarmad Patino Bilirubin [Mass/Vol] 0.4 mg/dL Normal 0.2-1.0 [facility] Comment on above: Performed By: #### D DAVIDSON, MG, PHOS, CMP, LIPID, URIC #### [facility] [address] [place] [address] Dr. Sarmad Patino Calcium [Mass/Vol] 9.3 mg/dL Normal 8.5-10.1 [facility] Comment on above: Performed By: #### D DAVIDSON, MG, PHOS, CMP, LIPID, URIC #### [facility] [address] [address] [address] Sarmad Patino Chloride [Moles/Vol] 106 mmol/L Normal 98-107 [facility] Comment on above: Performed By: #### D DAVIDSON, MG, PHOS, CMP, LIPID, URIC #### [facility] [address] [place] [address] Dr. Sarmad Patino CO2 [Moles/Vol] 25.5 mmol/L Normal 21.0-32.0 [facility] Comment on above: Performed By: #### D DAVIDSON, MG, PHOS, CMP, LIPID, URIC #### [facility] [address] [address] [address] Sarmad Patino Creatinine [Mass/Vol] 0.85 mg/dL Normal 0.55-1.02 The [facility] Comment on above: Performed By: #### D DAVIDSON, MG, PHOS, CMP, LIPID, URIC #### [facility] [address] [address] [address] Sarmad Patino EGFR-AF JAPANESE >60 Normal >=60 The [facility] Comment on above: Performed By: #### D DAVIDSON, MG, PHOS, CMP, LIPID, URIC #### [facility] [address] [address] [address] Sarmad Patino EGFR-NON AF JAPANESE >60 Normal >=60 [facility] Comment on above: Performed By: #### D DAVIDSON, MG, PHOS, CMP, LIPID, URIC #### [facility] [address] [address] [address] Sarmad Patino Globulin (S) [Mass/Vol] 3.8 g/dL Normal [facility] Comment on above: Performed By: #### D DAVIDSON, MG, PHOS, CMP, LIPID, URIC #### [facility] [address] [address] [address] Sarmad Patino Glucose [Mass/Vol] 100 mg/dL Normal 74-106 The [facility] Comment on above: Performed By: #### D DAVIDSON, MG, PHOS, CMP, LIPID, URIC #### [facility] [address] [address] [address] Sarmad Patino Potassium [Moles/Vol] 3.9 mmol/L Normal 3.5-5.1 The [facility] Comment on above: Performed By: #### D DAVIDSON, MG, PHOS, CMP, LIPID, URIC #### [facility] [address] [address] [address] Sarmad Patino Protein [Mass/Vol] 7.2 g/dL Normal 6.4-8.2 The [facility] Comment on above: Performed By: #### D DAVIDSON, MG, PHOS, CMP, LIPID, URIC #### [facility] [address] [address] [address] Sarmad Patino Sodium [Moles/Vol] 141 mmol/L Normal 136-145 The [facility] Comment on above: Performed By: #### D DAVIDSON, MG, PHOS, CMP, LIPID, URIC #### [facility] [address] [address] [address] Sarmad Patino Urea nitrogen [Mass/Vol] 16.0 mg/dL Normal 7.0-18.0 [facility] Comment on above: Performed By: #### D DAVIDSON, MG, PHOS, CMP, LIPID, URIC #### [facility] [address] [address] [address] Sarmad Patino Urea nitrogen/Creatinine [Mass ratio] 18.8 mg/mg Normal [facility] Comment on above: Performed By: #### D DAVIDSON, MG, PHOS, CMP, LIPID, URIC #### [facility] [address] [address] [address] Sarmad Patino URIC ACID SERUMon 09-10-2021 Urate [Mass/Vol] 4.8 mg/dL Normal 2.6-6.0 [facility] Comment on above: Performed By: #### D DAVIDSON, MG, PHOS, CMP, LIPID, URIC #### [facility] [address] [address] [address] Sarmad Patino Urinalysis - AUTOMATEDon Appearance (U) cloudy [employer] Other Bilirubin Ql (U) Negative [employer] Other Color (U) pale yellow [facility] Other Glucose Ql (U) Negative [employer] Other Hemoglobin Ql (U) moderate [facility] Other Ketones Ql (U) Negative [employer] Other Leukocyte esterase Test strip Ql (U) moderate [facility] Other Nitrite Ql (U) Negative [employer] Other pH (U) 7.0 [pH] [facility] Other Protein Ql (U) Negative [employer] Other Specific gravity (U) [Rel density] 1.010 [facility] Other Urobilinogen (U) [Mass/Vol] 0.2 mg/dL [facility] Other Urinalysis - AUTOMATED [facility] Other Urine Cultureon 08-14-2021 Urine Culture 100,000 [facility] Other Urine Culture <16 Susceptible [employer] Other Urine Culture >16 Resistant [facility] Other Urine Culture <4 Susceptible [employer] Other Urine Culture <2 Susceptible [employer] Other Urine Culture <1 Susceptible [employer] Other Urine Culture <0.5 Susceptible [employer] Other Urine Culture <32 Susceptible [employer] Other Urine Culture <2/38 Susceptible [employer] Other Bacteria identified Cx Nom (U) Reason for Exam Dysuria Urine ORGANISM: Klebsiella pneumoniae (O:KLEPNE) [place] Count 100,000 Aerobic SHYLA Charge (NUC86) [...] RESISTANT TO ALL B-LACTAM DRUGS. PERFORMED BY: [place] [address] PATHOLOGIST [employer] SEALER LOVELY COLE M.D. Normal [facility] Comment on above: Performed By: #### C UU #### [address] *URINE CULTUREon 12-31-2017 Bacteria identified in Urine by Culture Clinical Report: (D) Specimen: URINE Collected: 12/31/2017 13:40 Status: Final Last Updated: 01/04/2018 12:38 ISO (Final) Diphtheroids >100,000 Cfu/Ml 2 Morphologies ISO (Final) Aerococcus urinae 50,000 - 100,000 Cfu/mL Result changed by [email or web address] on 01/04/2018 12:38. The previous result was: ISO (Prelim) Normal The [facility] Comment on above: Performed By: #### 4 1000, 97875, 28664, 42431, 49673, 59227 ####[facility] CBC W/DIFFon 12-25-2017 ABS BASOPHILS 0.0 10*3/uL Normal 0.0-0.2 The [facility] Comment on above: Performed By: #### 5 0103 ####[facility] [place], [place] [id number] [place] [address] ABS IMM GRANS 0.0 10*3/uL Normal 0.0-0.2 The [facility] Comment on above: Performed By: #### 5 0103 ####[facility] [place] [address], [facility] ABS NEUTROPHILS 5.0 10*3/uL Normal 1.6-7.6 The [facility] Comment on above: Performed By: #### 5 0103 ####[facility] [place] [address], [facility] Basophils Auto #/vol (Bld) 0.1 % Normal 0.0-1.0 The [facility] Comment on above: Performed By: #### 5 0103 ####[facility] [place] [address], [facility] Eosinophils Auto #/vol (Bld) 0.1 10*3/uL Normal 0.0-0.5 The [facility] Comment on above: Performed By: #### 5 0103 ####[facility] [facility] Eosinophils/100 WBC Auto (Bld) 1.6 % Normal 0.0-6.0 The [facility] Comment on above: Performed By: #### 5 0103 ####[facility] [facility] Erythrocyte distribution width Auto Ratio (RBC) 14.6 % Normal 11.5-15.0 The [facility] Comment on above: Performed By: #### 5 0103 ####[facility] [facility] Hematocrit Auto Volume Fraction (Bld) 44.9 % Normal 36.0-45.0 The [facility] Comment on above: Performed By: #### 5 3 ####[facility] Hemoglobin mass conc (Bld) 14.9 g/dL Normal 12.0-15.0 The [facility] Comment on above: Performed By: #### 5 0103 ####[facility] IMMATURE GRANS 0.4 % Normal 0.0-1.0 The [facility] Comment on above: Performed By: #### 5 0103 ####[facility] Lymphocytes Auto #/vol (Bld) 1.0 10*3/uL Low 1.2-4.0 The [facility] Comment on above: Performed By: #### 5 0103 ####[facility] Lymphocytes/100 WBC Auto (Bld) 14.9 % Low 20.0-45.0 The [facility] Comment on above: Performed By: #### 5 3 ####[facility] MCH Auto Entitic mass (RBC) 28.8 pg Normal 27.0-33.0 The [facility] Comment on above: Performed By: #### 5 0103 ####[facility] MCHC Auto mass conc (RBC) 33.2 g/dL Normal 32.0-35.0 The [facility] Comment on above: Performed By: #### 5 3 ####[facility] MCV Auto Entitic volume (RBC) 86.7 fL Normal 82.0-98.0 The [facility] Comment on above: Performed By: #### 5 3 ####[facility] Monocytes Auto #/vol (Bld) 0.7 10*3/uL Normal 0.1-1.0 The [facility] Comment on above: Performed By: #### 5 0103 ####[facility]3000 [facility].[address] MONOS 10.6 % Normal 5.0-12.0 [facility] Comment on above: Performed By: #### 5 0103 ####[facility]3000 [facility].[address] Neutrophils/100 WBC Auto (Bld) 72.4 % High 40.0-72.0 The [facility] Comment on above: Performed By: #### 5 0103 ####[facility]3000 [facility].[address] Nucleated RBC/100 WBC Ratio (Bld) 0 % Normal 0-0 [facility] Comment on above: Performed By: #### 5 010 ####[facility]3000 [facility].[address] PLAT CNT 203 10*3/uL Normal 150-400 The [facility] Comment on above: Performed By: #### 5 0103 ####[facility]3000 [facility].[address] RBC Auto #/vol (Bld) 5.18 10*6/uL High 3.80-5.00 Th e [facility] Comment on above: Performed By: #### 5 0103 ####[facility]3000 [facility].[address] WBC Auto #/vol (Bld) 6.90 10*3/uL Normal 4.00-10.60 Th e [facility] Comment on above: Performed By: #### 5 0103 ####[facility] COMP METABOLIC PANELon 12-25 Albumin mass conc 4.3 g/dL Normal 3.5-5.7 [facility] Comment on above: Performed By: #### 4 1000, 01918, 15231, 63065, 19732, 40762 ####[facility] ALKALINE PHOSPH 118 IU/L High 34-104 [facility] Comment on above: Performed By: #### 4 1000, 70659, 70833, 38527, 97478, 42552 ####[facility] [facility] ALT enzyme act/vol 11 U/L Normal 7-52 The [facility] Comment on above: Performed By: #### 4 1000, 07752, 95342, 11308, 02564, 20512 ####[facility] [facility] AST enzyme act/vol 17 U/L Normal 13-39 The [facility] Comment on above: Performed By: #### 4 1000, 76441, 15288, 94184, 04796, 91756 ####[facility]3000 [facility].[address] Bilirubin mass conc 0.4 mg/dL Normal 0.3-1.0 The [facility] Comment on above: Performed By: #### 4 1000, 11584, 29523, 43643, 95357, 09977 ####[facility]3000 [facility].[address] Calcium mass conc 9.8 mg/dL Normal 8.6-10.3 The [facility] Comment on above: Performed By: #### 4 1000, 40912, 05869, 35764, 89118, 82706 ####[facility]3000 [facility] [place] [address], [facility] Chloride molar conc 104 mmol/L Normal 98-107 The [facility] Comment on above: Performed By: #### 4 1000, 78781, 38657, 81111, 40078, 85354 ####[facility] [place] [address], [facility] CO2 molar conc 27 mmol/L Normal 21-31 [facility] Comment on above: Performed By: #### 4 1000, 64131, 60518, 41802, 42479, 14856 ####[facility] [place] [address], [facility] Creatinine mass conc 0.76 mg/dL Normal 0.60-1.20 [facility] Comment on above: Performed By: #### 4 1000, 45744, 41794, 47049, 33225, 01467 ####[facility] [place] [address], [facility] GFR/1.73 sq M predicted among blacks MDRD vol rate/area (S/P/Bld) mL/min/{1.73_m2} Normal >60 The [facility] Comment on above: Performed By: #### 4 1000, 08971, 09778, 38570, 98629, 02223 ####[facility] [place] [address], [facility] GFR/1.73 sq M predicted among non-blacks MDRD vol rate/area (S/P/Bld) mL/min/{1.73_m2} Normal >60 The [facility] Comment on above: Performed By: #### 4 1000, 57738, 99308, 34669, 78702, 99409 ####[facility] [place] [address], [place] Glucose mass conc 94 mg/dL Normal 70-100 [facility] Comment on above: Performed By: #### 4 1000, 84376, 49432, 89321, 23189, 68123 ####[facility] [place] [address], [place] Potassium molar conc 3.9 mmol/L Normal 3.5-5.1 The [facility] Comment on above: Performed By: #### 4 1000, 33471, 37908, 25056, 94679, 28715 ####[facility] Protein mass conc 7.2 g/dL Normal 6.0-8.3 The [facility] Comment on above: Performed By: #### 4 1000, 09685, 92072, 81281, 96392, 94990 ####[facility] Sodium molar conc 140 mmol/L Normal 136-145 The [facility] Comment on above: Performed By: #### 4 1000, 52161, 54582, 20155, 20847, 76518 ####[facility] Urea nitrogen mass conc 15 mg/dL Normal 7-25 The [facility] Comment on above: Performed By: #### 4 1000, 22607, 14509, 60818, 66669, 30435 ####[facility] DIRECT BILIon 12-25-2017 Bilirubin.direct mass conc 0.1 mg/dL Normal 0.0-0.2 The [facility] Comment on above: Performed By: #### 4 1000, 78331, 40663, 11210, 32234, 20499 ####[facility] EVEROLIMUS 53400up 8 EVEROLIMUS 4.7 ng/mL Normal The [facility] Comment on above: Result Comment: Ther [...] transplantcenter.Test developed and characteristics determined by [facility]. See Compliance Statement B: Bindo/CSPerformed by [employer],[address] [place] [id number] xlx.Bindo, Leonid Antonio MD - Lab. Director LIPID PROFILEon 12-25-2017 Cholesterol in HDL mass conc 51 mg/dL Normal 23-92 The [facility] Comment on above: Result Comment: Slig ht variation in normal range could be due to gender and/or age.HDL CHOLESTEROL REFERENCE RANGE:20 years and older Cardiovascular Risk> or =60 mg/dL Inkrazgrv68 TO 59 mg/dL Low Risk<40 mg/dL High Risk Performed By: #### 4 5506, 12596, 22010, 27965, 92238, 18263 ####[facility]3000 [facility].[address] Cholesterol in LDL mass conc 58 mg/dL Normal 0-130 The [facility] Comment on above: Result Comment: LDL IS A CALCULATIONLDL IS ONLY VALID IF THE TRIG IS LESS THAN 400. Performed By: #### 4 5506, 68076, 46479, 44681, 67972, 29231 ####[facility] [place] [address], [facility] Cholesterol mass conc 122 mg/dL Normal 120-200 The [facility] Comment on above: Result Comment: CHOL ESTEROL REFERENCE RANGE:20 YEARS AND OLDER CARDIOVASCULAR RISKLess than 200 mg/dl Low Ajqd327 to 239 mg/dl Borderline Wcmq851 mg/dl and greater High Risk Performed By: #### 4 5506, 13025, 14131, 82681, 25215, 00659 ####[facility]3000 [facility] Cholesterol.total/Cho lesterol in HDL mass ratio 2.4 {ratio} Normal .0-4.5 The [facility] Comment on above: Performed By: #### 4 5506, 47320, 11155, 91752, 44780, 26683 ####[facility]3000 [facility].[address] NON-HDL CHOLESTEROL 71 mg/dL Normal The [facility] Comment on above: Performed By: #### 4 5506, 40156, 55477, 88163, 83205, 03772 ####[facility]3000 [facility].[address] Triglyceride mass conc 65 mg/dL Normal 40-149 The [facility] Comment on above: Result Comment: TRIG LYCERIDE REFERENCE RANGE:20 YEARS AND OLDER CARDIOVASCULAR RISKLESS THAN 150 mg/dl LOW [id number] TO 199 mg/dl BORDERLINE [id number] mg/dl AND GREATER HIGH RISK Performed By: #### 4 5506, 77327, 46827, 03402, 49586, 15766 ####[facility]3000 [facility].[address] VLDL CHOL 13 mg/dL Normal 0-40 The [facility] Comment on above: Performed By: #### 4 5506, 21419, 22612, 58393, 46693, 96819 ####[facility]3000 [facility].[address] MAGNESIUM BLOODon 12-25-2017 Magnesium mass conc 1.8 mg/dL Low 1.9-2.7 The [facility] Comment on above: Performed By: #### 4 1000, 32477, 58069, 60625, 31811, 32245 ####[facility]3000 [facility] [place] [address], [facility] PHOSPHORUS BLOODon 8 Phosphate mass conc 3.4 mg/dL Normal 2.5-5.0 The [facility] Comment on above: Performed By: #### 4 5506, 70149, 92148, 49064, 79459, 20517 ####[facility]3000 [facility].[address] TACROLIMUSon 12-25-2017 Tacrolimus mass conc (Bld) 6.4 ng/mL Normal 5.0-20.0 The [facility] Comment on above: Result Comment: The [facility] Tacrolimus assay is a delayed one-step immunoassayfor the quantitative determination of tacrolimus in human whole bloodusing the chemiluminescent microparticle immunoassay (CMIA) technologywith flexible assay protocols, referred to as Chemiflex. Performed By: #### 4 1000, 04574, 74458, 60748, 17181, 60661 ####[facility] URIC ACID BLOODon 12-25-2017 Urate mass conc 4.7 mg/dL Normal 2.3-6.6 [facility] Comment on above: Performed By: #### 4 5506, 69023, 54211, 63614, 26244, 41612 ####[facility]3000 [facility].[address] CBC W/DIFFon 10-30-2017 ABS BASOPHILS 0.0 10*3/uL Normal 0.0-0.2 The [facility] Comment on above: Performed By: #### 4 6447, 78400 ####[facility] ABS IMM GRANS 0.0 10*3/uL Normal 0.0-0.2 The [facility] Comment on above: Performed By: #### 4 6313, 78257 ####[facility]3000 [facility] [place] [address], [facility] ABS NEUTROPHILS 4.9 10*3/uL Normal 1.6-7.6 The [facility] Comment on above: Performed By: #### 4 6447, 78823 ####[facility] [place] [address], [facility] Basophils Auto #/vol (Bld) 0.1 % Normal 0.0-1.0 The [facility] Comment on above: Performed By: #### 4 6447, 40089 ####[facility]3000 [facility] [place] [address], [facility] Eosinophils Auto #/vol (Bld) 0.1 10*3/uL Normal 0.0-0.5 The [facility] Comment on above: Performed By: #### 4 3147, 94517 ####[facility]3000 [facility].[address] Eosinophils/100 WBC Auto (Bld) 1.4 % Normal 0.0-6.0 The [facility] Comment on above: Performed By: #### 4 9747, 19884 ####[facility]3000 [facility].[address] Erythrocyte distribution width Auto Ratio (RBC) 14.6 % Normal 11.5-15.0 The [facility] Comment on above: Performed By: #### 4 3247, 16617 ####[facility]3000 [facility].[address] Hematocrit Auto Volume Fraction (Bld) 46.8 % High 36.0-45.0 The [facility] Comment on above: Performed By: #### 4 6447, 93281 ####[place] [address] [facility].[address] Hemoglobin mass conc (Bld) 15.1 g/dL High 12.0-15.0 The [facility] Comment on above: Performed By: #### 4 3084, 88769 ####[facility]3000 [facility].[address] IMMATURE GRANS 0.4 % Normal 0.0-1.0 The [facility] Comment on above: Performed By: #### 4 5827, 34412 ####[facility]3000 [facility].[address] Lymphocytes Auto #/vol (Bld) 1.2 10*3/uL Normal 1.2-4.0 The [facility] Comment on above: Performed By: #### 4 7485, 71724 ####[address] Lymphocytes/100 WBC Auto (Bld) 16.6 % Low 20.0-45.0 The [facility] Comment on above: Performed By: #### 4 8595, 93384 ####[address] MCH Auto Entitic mass (RBC) 29.0 pg Normal 27.0-33.0 The [facility] Comment on above: Performed By: #### 7 8467, 35801 ####[address] MCHC Auto mass conc (RBC) 32.3 g/dL Normal 32.0-35.0 The [facility] Comment on above: Performed By: #### 4 2265, 82904 ####[place] [address] [facility].[address] MCV Auto Entitic volume (RBC) 89.8 fL Normal 82.0-98.0 The [facility] Comment on above: Performed By: #### 5 5872, 14647 ####[place] [address] [facility].[address] Monocytes Auto #/vol (Bld) 0.8 10*3/uL Normal 0.1-1.0 [facility] Comment on above: Performed By: #### 4 8247, 45544 ####[facility] [place] [address], [facility] MONOS 11.9 % Normal 5.0-12.0 The [facility] Comment on above: Performed By: #### 4 2347, 09697 ####[facility] [place] [address], [facility] Neutrophils/100 WBC Auto (Bld) 69.6 % Normal 40.0-72.0 The [facility] Comment on above: Performed By: #### 4 9747, 87291 ####[place] [address] [facility] Nucleated RBC/100 WBC Ratio (Bld) 0 % Normal 0-0 The [facility] Comment on above: Performed By: #### 4 3847, 71848 ####[facility] [place] [address], [facility] PLAT CNT 200 10*3/uL Normal 150-400 The [facility] Comment on above: Performed By: #### 4 8647, 31373 ####[facility] [facility].[address] RBC Auto #/vol (Bld) 5.21 10*6/uL High 3.80-5.00 Th e [facility] Comment on above: Performed By: #### 4 5547, 50159 ####[facility] WBC Auto #/vol (Bld) 7.04 10*3/uL Normal 4.00-10.60 Th e [facility] Comment on above: Performed By: #### 4 1247, 56151 ####[facility] [place] [address], [facility] COMP METABOLIC PANELon 10-30 Albumin mass conc 4.1 g/dL Normal 3.5-5.7 The [facility] Comment on above: Performed By: #### 4 8340, 97410 ####[facility] [place] [address], [facility] ALKALINE PHOSPH 114 IU/L High 34-104 The [facility] Comment on above: Performed By: #### 4 2386, 69681 ####[facility] [place] [address], [facility] ALT enzyme act/vol 16 U/L Normal 7-52 The [facility] Comment on above: Performed By: #### 4 8262, 49110 ####[address] [place] [address], [facility] AST enzyme act/vol 18 U/L Normal 13-39 The [facility] Comment on above: Performed By: #### 4 3066, 19244 ####[place] [address] [place] [address], [facility] Bilirubin mass conc 0.4 mg/dL Normal 0.3-1.0 The [facility] Comment on above: Performed By: #### 4 5646, 80281 ####[facility] [place] [address], [facility] Calcium mass conc 9.7 mg/dL Normal 8.6-10.3 The [facility] Comment on above: Performed By: #### 4 0735, 18162 ####[address] [place] [address], [facility] Chloride molar conc 105 mmol/L Normal 98-107 The [facility] Comment on above: Performed By: #### 4 9281, 23625 ####[facility] [place] [address], [facility] CO2 molar conc 28 mmol/L Normal 21-31 The [facility] Comment on above: Performed By: #### 4 4247, 10228 ####[facility] [place] [address], [facility] Creatinine mass conc 0.82 mg/dL Normal 0.60-1.20 The [facility] Comment on above: Performed By: #### 4 4847, 02475 ####[facility] [place] [address], [facility] GFR/1.73 sq M predicted among blacks MDRD vol rate/area (S/P/Bld) mL/min/{1.73_m2} Normal >60 The [facility] Comment on above: Performed By: #### 4 6347, 40313 ####[facility] [place] [address], [facility] GFR/1.73 sq M predicted among non-blacks MDRD vol rate/area (S/P/Bld) mL/min/{1.73_m2} Normal >60 The [facility] Comment on above: Performed By: #### 4 7270, 78806 ####[facility] [place] [address], [facility] Glucose mass conc 90 mg/dL Normal 70-100 The [facility] Comment on above: Performed By: #### 4 1585, 73824 ####[facility] [place] [address], [facility] Potassium molar conc 4.1 mmol/L Normal 3.5-5.1 The [facility] Comment on above: Performed By: #### 4 0551, 92320 ####[facility] [place] [address], [facility] Protein mass conc 6.9 g/dL Normal 6.0-8.3 The [facility] Comment on above: Performed By: #### 4 6447, 96056 ####[facility] [facility].[address] Sodium molar conc 138 mmol/L Normal 136-145 The [facility] Comment on above: Performed By: #### 4 6447, 16898 ####[facility] [facility].[address] Urea nitrogen mass conc 16 mg/dL Normal 7-25 The [facility] Comment on above: Performed By: #### 4 6447, 65140 ####[facility]3000 [facility].[address] DIRECT BILIon 10-30-2017 Bilirubin.direct mass conc 0.0 mg/dL Normal 0.0-0.2 [facility] Comment on above: Performed By: #### 4 5506, 92297, 97334, 89867, 28441, 45288 ####[facility]3000 [facility].[address] EVEROLIMUS 72288nd 8 EVEROLIMUS 6.0 ng/mL Normal [facility] Comment on above: Result Comment: [...] transplantcenter.Test developed and characteristics determined by [facility] [employer] [facility]. See Compliance Statement B: Bindo/CSPerformed by [employer],[address] [facility] [place] [address] zta.Bindo, Leonid Antonio MD - Lab. Director LIPID PROFILEon 10-30-2017 Cholesterol in HDL mass conc 50 mg/dL Normal 23-92 The [facility] Comment on above: Result Comment: Slig ht variation in normal range could be due to gender and/or age.HDL CHOLESTEROL REFERENCE RANGE:20 years and older Cardiovascular Risk> or =60 mg/dL Zwfwsfisz65 TO 59 mg/dL Low Risk<40 mg/dL High Risk Performed By: #### 4 5506, 37119, 51193, 33019, 78125, 96123 ####[facility] [facility] [place] [address], [facility] Cholesterol in LDL mass conc 85 mg/dL Normal 0-130 The [facility] Comment on above: Result Comment: LDL IS A CALCULATIONLDL IS ONLY VALID IF THE TRIG IS LESS THAN 400. Performed By: #### 4 5506, 21097, 40012, 26809, 40772, 52617 ####[facility] [place] [address], [facility] Cholesterol mass conc 152 mg/dL Normal 120-200 The [facility] Comment on above: Result Comment: CHOL ESTEROL REFERENCE RANGE:20 YEARS AND OLDER CARDIOVASCULAR RISKLess than 200 mg/dl Low Rbef484 to 239 mg/dl Borderline Xmgm373 mg/dl and greater High Risk Performed By: #### 4 5506, 87403, 25915, 00114, 94282, 58440 ####[facility] [place] [address], [facility] Cholesterol.total/Cho lesterol in HDL mass ratio 3.0 {ratio} Normal .0-4.5 The [facility] Comment on above: Performed By: #### 4 5506, 60842, 93860, 61034, 26282, 92782 ####[facility] NON-HDL CHOLESTEROL 102 mg/dL Normal The [facility] Comment on above: Performed By: #### 4 5506, 78968, 63211, 15807, 86947, 84033 ####[facility] Triglyceride mass conc 87 mg/dL Normal 40-149 The [facility] Comment on above: Result Comment: TRIG LYCERIDE REFERENCE RANGE:20 YEARS AND OLDER CARDIOVASCULAR RISKLESS THAN 150 mg/dl LOW [id number] TO 199 mg/dl BORDERLINE [id number] mg/dl AND GREATER HIGH RISK Performed By: #### 4 5506, 49105, 63794, 42471, 43196, 95629 ####[facility] VLDL CHOL 17 mg/dL Normal 0-40 The [facility] Comment on above: Performed By: #### 4 5506, 74935, 03584, 45273, 29957, 24371 ####[facility] MAGNESIUM BLOODon 10-30-2017 Magnesium mass conc 1.9 mg/dL Normal 1.9-2.7 The [facility] Comment on above: Performed By: #### 4 5506, 31787, 81845, 05693, 62034, 12459 ####[facility] [place] [address], [facility] PHOSPHORUS BLOODon 8 Phosphate mass conc 3.7 mg/dL Normal 2.5-5.0 The [facility] Comment on above: Performed By: #### 4 5506, 81694, 31241, 59695, 83175, 00611 ####[facility] [place] [address], [facility] TACROLIMUSon 10-30-2017 Tacrolimus mass conc (Bld) 7.1 ng/mL Normal 5.0-20.0 The [facility] Comment on above: Result Comment: The [facility] [facility] Tacrolimus assay is a delayed one-step immunoassayfor the quantitative determination of tacrolimus in human whole bloodusing the chemiluminescent microparticle immunoassay (CMIA) technologywith flexible assay protocols, referred to as Chemiflex. Performed By: #### 9 9914 ####[place] [address] [address] URIC ACID BLOODon 10-30-2017 Urate mass conc 4.6 mg/dL Normal 2.3-6.6 The [facility] Comment on above: Performed By: #### 4 0406, 37484 ####[address] CBC W/DIFFon 10-23-2017 ABS BASOPHILS 0.0 10*3/uL Normal 0.0-0.2 The [facility] Comment on above: Performed By: #### 4 7369, 52283 ####[address] ABS IMM GRANS 0.1 10*3/uL Normal 0.0-0.2 The [facility] Comment on above: Performed By: #### 4 9624, 05543 ####[address] ABS NEUTROPHILS 5.8 10*3/uL Normal 1.6-7.6 [facility] Comment on above: Performed By: #### 4 8277, 77253 ####[address] Basophils Auto #/vol (Bld) 0.2 % Normal 0.0-1.0 The [facility] Comment on above: Performed By: #### 4 6296, 02285 ####[address] [place] [address], [place] Eosinophils Auto #/vol (Bld) 0.1 10*3/uL Normal 0.0-0.5 The [facility] Comment on above: Performed By: #### 4 9547, 29391 ####[address] Eosinophils/100 WBC Auto (Bld) 0.7 % Normal 0.0-6.0 The [facility] Comment on above: Performed By: #### 4 5047, 34845 ####[address] Erythrocyte distribution width Auto Ratio (RBC) 14.6 % Normal 11.5-15.0 The [facility] Comment on above: Performed By: #### 4 4147, 49988 ####[address] Hematocrit Auto Volume Fraction (Bld) 44.2 % Normal 36.0-45.0 The [facility] Comment on above: Performed By: #### 4 9623, 26897 ####[address] Hemoglobin mass conc (Bld) 14.2 g/dL Normal 12.0-15.0 The [facility] Comment on above: Performed By: #### 4 1702, 95958 ####[address] IMMATURE GRANS 1.4 % High 0.0-1.0 The [facility] Comment on above: Performed By: #### 4 6771, 92594 ####[address] Lymphocytes Auto #/vol (Bld) 2.1 10*3/uL Normal 1.2-4.0 The [facility] Comment on above: Performed By: #### 4 7876, 52747 ####[facility] Lymphocytes/100 WBC Auto (Bld) 22.5 % Normal 20.0-45.0 The [facility] Comment on above: Performed By: #### 4 2141, 38086 ####[facility] [facility] MCH Auto Entitic mass (RBC) 28.5 pg Normal 27.0-33.0 The [facility] Comment on above: Performed By: #### 4 3539, 43836 ####[facility] [facility].[address] MCHC Auto mass conc (RBC) 32.1 g/dL Normal 32.0-35.0 The [facility] Comment on above: Performed By: #### 9 0783, 44734 ####[facility] [place] [address].[address] MCV Auto Entitic volume (RBC) 88.8 fL Normal 82.0-98.0 The [facility] Comment on above: Performed By: #### 4 3603, 02105 ####[place] [address] [facility].[address] Monocytes Auto #/vol (Bld) 1.1 10*3/uL High 0.1-1.0 The [facility] Comment on above: Performed By: #### 9 7954, 28642 ####[facility] [place] [address].[address] MONOS 12.0 % Normal 5.0-12.0 The [facility] Comment on above: Performed By: #### 7 8793, 97313 ####[place] [address] Neutrophils/100 WBC Auto (Bld) 63.2 % Normal 40.0-72.0 The [facility] Comment on above: Performed By: #### 4 6447, 19217 ####[facility] Nucleated RBC/100 WBC Ratio (Bld) 0 % Normal 0-0 The [facility] Comment on above: Performed By: #### 4 6447, 24704 ####[facility] [facility] PLAT CNT 241 10*3/uL Normal 150-400 The [facility] Comment on above: Performed By: #### 4 6447, 00350 ####[facility]3000 [facility].[address] RBC Auto #/vol (Bld) 4.98 10*6/uL Normal 3.80-5.00 Th e [facility] Comment on above: Performed By: #### 4 6447, 12590 ####[facility]3000 [facility].[address] WBC Auto #/vol (Bld) 9.14 10*3/uL Normal 4.00-10.60 Th e [facility] Comment on above: Performed By: #### 4 6447, 35813 ####[facility]3000 [facility].[address] COMP METABOLIC PANELon 10-23 Albumin mass conc 3.8 g/dL Normal 3.5-5.7 The [facility] Comment on above: Performed By: #### 4 6447, 00446 ####[facility]3000 [facility].[address] ALKALINE PHOSPH 96 IU/L Normal 34-104 The [facility] Comment on above: Performed By: #### 4 6447, 33242 ####[facility] ALT enzyme act/vol 15 U/L Normal 7-52 The [facility] Comment on above: Performed By: #### 4 7506, 33902 ####[facility] [place] [address], [facility] AST enzyme act/vol 13 U/L Normal 13-39 The [facility] Comment on above: Performed By: #### 4 9821, 68735 ####[facility] [place] [address], [place] Bilirubin mass conc 0.4 mg/dL Normal 0.3-1.0 The [facility] Comment on above: Performed By: #### 2 4390, 07013 ####[facility] [place] [address], [facility] Calcium mass conc 9.2 mg/dL Normal 8.6-10.3 The [facility] Comment on above: Performed By: #### 0 7364, 54761 ####[facility] [place] [address], [facility] Chloride molar conc 102 mmol/L Normal 98-107 The [facility] Comment on above: Performed By: #### 2 0853, 18665 ####[facility] [place] [address], [place] CO2 molar conc 29 mmol/L Normal 21-31 The [facility] Comment on above: Performed By: #### 6 5647, 87286 ####[facility] [place] [address], [place] Creatinine mass conc 0.80 mg/dL Normal 0.60-1.20 The [facility] Comment on above: Performed By: #### 0 5440, 40142 ####[facility] [place] [address], [place] GFR/1.73 sq M predicted among blacks MDRD vol rate/area (S/P/Bld) mL/min/{1.73_m2} Normal >60 The [facility] Comment on above: Performed By: #### 4 2313, 53868 ####[facility] [place] [address], [facility] GFR/1.73 sq M predicted among non-blacks MDRD vol rate/area (S/P/Bld) mL/min/{1.73_m2} Normal >60 The [facility] Comment on above: Performed By: #### 4 6521, 18964 ####[facility] [place] [address], [facility] Glucose mass conc 85 mg/dL Normal 70-100 The [facility] Comment on above: Performed By: #### 4 7770, 30958 ####[place] [address] [facility] [place] [address], [facility] Potassium molar conc 3.3 mmol/L Low 3.5-5.1 The [facility] Comment on above: Performed By: #### 4 3043, 58152 ####[facility] [facility] [place] [address], [facility] Protein mass conc 6.5 g/dL Normal 6.0-8.3 The [facility] Comment on above: Performed By: #### 4 3840, 16958 ####[facility] [place] [address], [facility] Sodium molar conc 139 mmol/L Normal 136-145 The [facility] Comment on above: Performed By: #### 4 3744, 38582 ####[facility] [place] [address], [facility] Urea nitrogen mass conc 18 mg/dL Normal 7-25 The [facility] Comment on above: Performed By: #### 4 2487, 36483 ####[facility] [place] [address], [facility] DIRECT BILIon 10-23-2017 Bilirubin.direct mass conc 0.1 mg/dL Normal 0.0-0.2 The [facility] Comment on above: Performed By: #### 4 6447, 85457 ####[facility] [place] [address], [facility] EVEROLIMUS [id number] 8 EVEROLIMUS 4.0 ng/mL Normal The [facility] Comment on above: Result Comment: Ther [...] transplantcenter.Test developed and characteristics determined by [facility]. See Compliance Statement B: Bindo/CSPerformed by [employer],[address] [place] [address] nkk.Bindo, Leonid Antonio MD - Lab. Director LIPID PROFILEon 10-23-2017 Cholesterol in HDL mass conc 53 mg/dL Normal 23-92 The [facility] Comment on above: Result Comment: Slig ht variation in normal range could be due to gender and/or age.HDL CHOLESTEROL REFERENCE RANGE:20 years and older Cardiovascular Risk> or =60 mg/dL Xunktebpr54 TO 59 mg/dL Low Risk<40 mg/dL High Risk Performed By: #### 4 6941, 27010 ####[facility] [facility] [place] [address], [facility] Cholesterol in LDL mass conc 68 mg/dL Normal 0-130 The [facility] Comment on above: Result Comment: LDL IS A CALCULATIONLDL IS ONLY VALID IF THE TRIG IS LESS THAN 400. Performed By: #### 4 0732, 02197 ####[facility] [place] [address], [facility] Cholesterol mass conc 135 mg/dL Normal 120-200 The [facility] Comment on above: Result Comment: CHOL ESTEROL REFERENCE RANGE:20 YEARS AND OLDER CARDIOVASCULAR RISKLess than 200 mg/dl Low Wwvj567 to 239 mg/dl Borderline Imre086 mg/dl and greater High Risk Performed By: #### 4 6350, 19374 ####[address] [place] [address], [facility] Cholesterol.total/Cho lesterol in HDL mass ratio 2.5 {ratio} Normal .0-4.5 [facility] Comment on above: Performed By: #### 4 2243, 76818 ####[facility] [facility] [place] [address], [facility] NON-HDL CHOLESTEROL 82 mg/dL Normal The [facility] Comment on above: Performed By: #### 4 2737, 34556 ####[facility] [facility] [place] [address], [facility] Triglyceride mass conc 72 mg/dL Normal 40-149 The [facility] Comment on above: Result Comment: TRIG LYCERIDE REFERENCE RANGE:20 YEARS AND OLDER CARDIOVASCULAR RISKLESS THAN 150 mg/dl LOW [id number] TO 199 mg/dl BORDERLINE [id number] mg/dl AND GREATER HIGH RISK Performed By: #### 4 7873, 95226 ####[facility] [facility] [place] [address], [facility] VLDL CHOL 14 mg/dL Normal 0-40 The [facility] Comment on above: Performed By: #### 4 6447, 63202 ####[facility] [facility].[address] MAGNESIUM BLOODon 10-23-2017 Magnesium mass conc 1.8 mg/dL Low 1.9-2.7 The [facility] Comment on above: Performed By: #### 4 6447, 72801 ####[place] [address] [facility] [place] [address], [facility] PHOSPHORUS BLOODon 8 Phosphate mass conc 3.7 mg/dL Normal 2.5-5.0 The [facility] Comment on above: Performed By: #### 4 6447, 50676 ####[place] [address] TACROLIMUSon 10-23-2017 Tacrolimus mass conc (Bld) 2.6 ng/mL Low 5.0-20.0 The [facility] Comment on above: Result Comment: The [employer] Tacrolimus assay is a delayed one-step immunoassayfor the quantitative determination of tacrolimus in human whole bloodusing the chemiluminescent microparticle immunoassay (CMIA) technologywith flexible assay protocols, referred to as Chemiflex. Performed By: #### 4 6447, 97559 ####[address] URIC ACID BLOODon 10-23-2017 Urate mass conc 4.3 mg/dL Normal 2.3-6.6 The [facility] Comment on above: Performed By: #### 4 6447, 85383 ####[place] [address] [facility] [place] [address], [facility] CBC W/DIFFon 09-25-2017 ABS BASOPHILS 0.0 10*3/uL Normal 0.0-0.2 The [facility] Comment on above: Performed By: #### 4 1000, 46605, 31775, 85177, 18376, 64959 ####[address] [place] [address], [place] ABS IMM GRANS 0.0 10*3/uL Normal 0.0-0.2 The [facility] Comment on above: Performed By: #### 4 1000, 03137, 01138, 10418, 06806, 15833 ####[facility] [facility].[address] ABS NEUTROPHILS 4.4 10*3/uL Normal 1.6-7.6 The [facility] Comment on above: Performed By: #### 4 1000, 67238, 67442, 75275, 46844, 20905 ####[facility] [facility].[address] Basophils Auto #/vol (Bld) 0.2 % Normal 0.0-1.0 The [facility] Comment on above: Performed By: #### 4 1000, 58979, 88966, 61121, 41906, 71592 ####[facility] [facility].[address] Eosinophils Auto #/vol (Bld) 0.1 10*3/uL Normal 0.0-0.5 [facility] Comment on above: Performed By: #### 4 1000, 30274, 70490, 30664, 38427, 87461 ####[facility] [facility].[address] Eosinophils/100 WBC Auto (Bld) 2.2 % Normal 0.0-6.0 The [facility] Comment on above: Performed By: #### 4 1000, 92327, 12092, 15541, 96850, 76757 ####[facility] [facility].[address] Erythrocyte distribution width Auto Ratio (RBC) 14.0 % Normal 11.5-15.0 The [facility] Comment on above: Performed By: #### 4 1000, 97601, 31482, 69802, 81527, 75678 ####[facility] [facility].[address] Hematocrit Auto Volume Fraction (Bld) 44.8 % Normal 36.0-45.0 The [facility] Comment on above: Performed By: #### 4 1000, 57459, 78398, 80652, 91846, 01512 ####[facility] Hemoglobin mass conc (Bld) 14.5 g/dL Normal 12.0-15.0 The [facility] Comment on above: Performed By: #### 4 1000, 55108, 50851, 17706, 75791, 66252 ####[facility] [facility].[address] IMMATURE GRANS 0.3 % Normal 0.0-1.0 The [facility] Comment on above: Performed By: #### 4 1000, 80743, 90870, 04062, 81811, 52988 ####[facility] [facility].[address] Lymphocytes Auto #/vol (Bld) 1.1 10*3/uL Low 1.2-4.0 The [facility] Comment on above: Performed By: #### 4 1000, 46211, 98134, 94050, 38772, 94906 ####[facility] [facility].[address] Lymphocytes/100 WBC Auto (Bld) 17.0 % Low 20.0-45.0 The [facility] Comment on above: Performed By: #### 4 1000, 03108, 06639, 61808, 71622, 57115 ####[facility] [facility].[address] MCH Auto Entitic mass (RBC) 28.6 pg Normal 27.0-33.0 The [facility] Comment on above: Performed By: #### 4 1000, 51985, 02224, 85062, 32931, 58824 ####[facility] MCHC Auto mass conc (RBC) 32.4 g/dL Normal 32.0-35.0 The [facility] Comment on above: Performed By: #### 4 1000, 26022, 55205, 41883, 05598, 21049 ####[facility] MCV Auto Entitic volume (RBC) 88.4 fL Normal 82.0-98.0 The [facility] Comment on above: Performed By: #### 4 1000, 86631, 98827, 39267, 63376, 60582 ####[facility] [facility] [address] [facility] Monocytes Auto #/vol (Bld) 0.7 10*3/uL Normal 0.1-1.0 The [facility] Comment on above: Performed By: #### 4 1000, 12233, 17117, 99195, 53217, 48001 ####[facility] [facility] [address] MONOS 11.5 % Normal 5.0-12.0 The [facility] Comment on above: Performed By: #### 4 1000, 34591, 70233, 54372, 53048, 86321 ####[facility] Neutrophils/100 WBC Auto (Bld) 68.8 % Normal 40.0-72.0 The [facility] Comment on above: Performed By: #### 4 1000, 74328, 89154, 97088, 93369, 40842 ####[facility] Nucleated RBC/100 WBC Ratio (Bld) 0 % Normal 0-0 The [facility] Comment on above: Performed By: #### 4 1000, 17351, 96972, 69385, 57686, 72698 ####[facility] [place] [address], [facility] PLAT CNT 212 10*3/uL Normal 150-400 The [facility] Comment on above: Performed By: #### 4 1000, 86166, 59491, 88658, 10044, 63811 ####[facility] RBC Auto #/vol (Bld) 5.07 10*6/uL High 3.80-5.00 Th e [facility] Comment on above: Performed By: #### 4 1000, 82574, 30731, 53349, 79133, 90402 ####[facility] WBC Auto #/vol (Bld) 6.34 10*3/uL Normal 4.00-10.60 Th e [facility] Comment on above: Performed By: #### 4 1000, 00430, 90031, 15999, 53575, 62176 ####[facility] COMP METABOLIC PANELon 09-25 Albumin mass conc 4.0 g/dL Normal 3.5-5.7 [facility] Comment on above: Performed By: #### 4 6447, 11266 ####[facility] ALKALINE PHOSPH 112 IU/L High 34-104 The [facility] Comment on above: Performed By: #### 4 2747, 69147 ####[facility] ALT enzyme act/vol 11 U/L Normal 7-52 The [facility] Comment on above: Performed By: #### 4 5814, 64146 ####[facility] [place] [address], [facility] AST enzyme act/vol 17 U/L Normal 13-39 The [facility] Comment on above: Performed By: #### 4 6447, 33614 ####[facility] [place] [address], [facility] Bilirubin mass conc 0.5 mg/dL Normal 0.3-1.0 [facility] Comment on above: Performed By: #### 4 6447, 41703 ####[facility] [facility] [place] [address], [facility] Calcium mass conc 9.6 mg/dL Normal 8.6-10.3 [facility] Comment on above: Performed By: #### 4 6447, 25436 ####[facility] [place] [address], [facility] Chloride molar conc 104 mmol/L Normal 98-107 The [facility] Comment on above: Performed By: #### 4 7947, 01416 ####[facility] [facility] [place] [address], [facility] CO2 molar conc 28 mmol/L Normal 21-31 The [facility] Comment on above: Performed By: #### 4 6147, 13364 ####[facility] [facility] [place] [address], [facility] Creatinine mass conc 0.83 mg/dL Normal 0.60-1.20 The [facility] Comment on above: Performed By: #### 4 5247, 74969 ####[facility] [facility] [place] [address], [facility] GFR/1.73 sq M predicted among blacks MDRD vol rate/area (S/P/Bld) mL/min/{1.73_m2} Normal >60 The [facility] Comment on above: Performed By: #### 4 6447, 76138 ####[facility] [place] [address], [facility] GFR/1.73 sq M predicted among non-blacks MDRD vol rate/area (S/P/Bld) mL/min/{1.73_m2} Normal >60 The [facility] Comment on above: Performed By: #### 4 9430, 49150 ####[facility] [place] [address], [place] Glucose mass conc 91 mg/dL Normal 70-100 The [facility] Comment on above: Performed By: #### 4 7547, 41477 ####[facility] [place] [address], [place] Potassium molar conc 3.9 mmol/L Normal 3.5-5.1 The [facility] Comment on above: Performed By: #### 3 2547, 33866 ####[facility] [place] [address], [facility] Protein mass conc 7.0 g/dL Normal 6.0-8.3 The [facility] Comment on above: Performed By: #### 2 4247, 79469 ####[facility] [place] [address], [place] Sodium molar conc 140 mmol/L Normal 136-145 The [facility] Comment on above: Performed By: #### 4 1047, 76652 ####[facility] [place] [address], [place] Urea nitrogen mass conc 15 mg/dL Normal 7-25 The [facility] Comment on above: Performed By: #### 4 4492, 70293 ####[facility] [place] [address], [place] DIRECT BILIon 09-25-2017 Bilirubin.direct mass conc 0.1 mg/dL Normal 0.0-0.2 The [facility] Comment on above: Performed By: #### 4 3891, 60077 ####[facility] EVEROLIMUS [id number] 8 EVEROLIMUS 5.1 ng/mL Normal The [facility] Comment on above: Result Comment: Ther [...] transplantcenter.Test developed and characteristics determined by [facility] [employer] [facility]. See Compliance Statement B: Bindo/CSPerformed by [employer],[address] [place] [id number] vlt.Bindo, Leonid Antonio MD - Lab. Director LIPID PROFILEon 09-25-2017 Cholesterol in HDL mass conc 48 mg/dL Normal 23-92 The [facility] Comment on above: Result Comment: Slig ht variation in normal range could be due to gender and/or age.HDL CHOLESTEROL REFERENCE RANGE:20 years and older Cardiovascular Risk> or =60 mg/dL Uelwizjlx93 TO 59 mg/dL Low Risk<40 mg/dL High Risk Performed By: #### 4 7850, 03919 ####[facility] [place] [address], [facility] Cholesterol in LDL mass conc 69 mg/dL Normal 0-130 The [facility] Comment on above: Result Comment: LDL IS A CALCULATIONLDL IS ONLY VALID IF THE TRIG IS LESS THAN 400. Performed By: #### 4 4535, 95431 ####[facility] [place] [address], [facility] Cholesterol mass conc 138 mg/dL Normal 120-200 The [facility] Comment on above: Result Comment: CHOL ESTEROL REFERENCE RANGE:20 YEARS AND OLDER CARDIOVASCULAR RISKLess than 200 mg/dl Low Pouc693 to 239 mg/dl Borderline Rmik725 mg/dl and greater High Risk Performed By: #### 4 5892, 03417 ####[place] [address] [place] [address], [facility] Cholesterol.total/Cho lesterol in HDL mass ratio 2.9 {ratio} Normal .0-4.5 [facility] Comment on above: Performed By: #### 4 5129, 23751 ####[facility] [place] [address], [facility] NON-HDL CHOLESTEROL 90 mg/dL Normal The [facility] Comment on above: Performed By: #### 4 5671, 75728 ####[facility] [facility] [place] [address], [facility] Triglyceride mass conc 103 mg/dL Normal 40-149 The [facility] Comment on above: Result Comment: TRIG LYCERIDE REFERENCE RANGE:20 YEARS AND OLDER CARDIOVASCULAR RISKLESS THAN 150 mg/dl LOW [id number] TO 199 mg/dl BORDERLINE RYON449 mg/dl AND GREATER HIGH RISK Performed By: #### 4 8375, 67607 ####[facility] [facility] [place] [address], [facility] VLDL CHOL 21 mg/dL Normal 0-40 The [facility] Comment on above: Performed By: #### 4 3212, 40569 ####[facility] MAGNESIUM BLOODon 09-25-2017 Magnesium mass conc 1.8 mg/dL Low 1.9-2.7 The [facility] Comment on above: Performed By: #### 4 6447, 05081 ####[address] PHOSPHORUS BLOODon 8 Phosphate mass conc 3.4 mg/dL Normal 2.5-5.0 The [facility] Comment on above: Performed By: #### 4 6447, 88090 ####[address] TACROLIMUSon 09-25-2017 Tacrolimus mass conc (Bld) 3.6 ng/mL Low 5.0-20.0 The [facility] Comment on above: Result Comment: The [employer] Tacrolimus assay is a delayed one-step immunoassayfor the quantitative determination of tacrolimus in human whole bloodusing the chemiluminescent microparticle immunoassay (CMIA) technologywith flexible assay protocols, referred to as Chemiflex. Performed By: #### 4 6447, 95332 ####[address] URIC ACID BLOODon 09-25-2017 Urate mass conc 4.7 mg/dL Normal 2.3-6.6 The [facility] Comment on above: Performed By: #### 4 6447, 88891 ####[address] BK VIRUS QUANTITATION PCR BL OODon 08-26-2017 BKV QUANT PCR Not detected Normal The [facility] Comment on above: Result Comment: Meth od: BK virus was measured by quantitative polymerase chain reactionusing a TaqMan probe targeting the polyomavirus BK TOYS INSPECTOR-1 gene.The lower limit of quantitation of the assay is 500 copies of BK genomeper milliliter of plasma or urine, and any detectable BK DNA below thatlevel is reported as: Detected, <500 copies/ml. Serial BK virusmeasurement can be used to monitor disease activity. (Reference:Kelsie simpson. J CLIN MICRO 2004; 42:3303-3769).This test was developed and its performance characteristics determinedby the [facility] Molecular [facility]. It has not been approvedby the [place] Food and Drug Administration. However, such approval is notrequired for clinical implementation, and test results have been shownto be clinically useful. This laboratory is CAP accredited and CLIAcertified to perform high complexity testing. Performed By: #### 4 1000, 00178, 43616, 24001, 47428, 84836 ####[facility] [facility].[address] LOG 10 COPIES Not detected Normal The [facility] Comment on above: Performed By: #### 4 1000, 69339, 93165, 00606, 90323, 50503 ####[facility] [facility].[address] CBC W/DIFFon 08-26-2017 ABS BASOPHILS 0.0 10*3/uL Normal 0.0-0.2 The [facility] Comment on above: Performed By: #### 4 1000, 70567, 55975, 45362, 25327, 51309 ####[facility] [facility].[address] ABS IMM GRANS 0.0 10*3/uL Normal 0.0-0.2 The [facility] Comment on above: Performed By: #### 4 1000, 26043, 93894, 66698, 26119, 62747 ####[facility] [facility].[address] ABS NEUTROPHILS 4.5 10*3/uL Normal 1.6-7.6 [facility] Comment on above: Performed By: #### 4 1000, 96583, 14648, 85811, 57201, 78746 ####[facility] [facility].[address] Basophils Auto #/vol (Bld) 0.2 % Normal 0.0-1.0 The [facility] Comment on above: Performed By: #### 4 1000, 04396, 21170, 82874, 53454, 06254 ####[facility] Eosinophils Auto #/vol (Bld) 0.2 10*3/uL Normal 0.0-0.5 The [facility] Comment on above: Performed By: #### 4 1000, 04007, 18825, 65866, 27145, 92007 ####[facility] Eosinophils/100 WBC Auto (Bld) 2.4 % Normal 0.0-6.0 The [facility] Comment on above: Performed By: #### 4 1000, 50647, 51400, 24583, 08912, 97457 ####[facility] Erythrocyte distribution width Auto Ratio (RBC) 14.0 % Normal 11.5-15.0 The [facility] Comment on above: Performed By: #### 4 1000, 80061, 77309, 19259, 17502, 31453 ####[facility] Hematocrit Auto Volume Fraction (Bld) 44.9 % Normal 36.0-45.0 The [facility] Comment on above: Performed By: #### 4 1000, 69456, 92241, 61980, 56348, 79308 ####[facility] Hemoglobin mass conc (Bld) 14.9 g/dL Normal 12.0-15.0 The [facility] [facility] Comment on above: Performed By: #### 4 1000, 89927, 85464, 83469, 38745, 15071 ####[facility] IMMATURE GRANS 0.5 % Normal 0.0-1.0 The [facility] Comment on above: Performed By: #### 4 1000, 32912, 41948, 73856, 16780, 56690 ####[place] [id number] [address] Lymphocytes Auto #/vol (Bld) 1.0 10*3/uL Low 1.2-4.0 The [facility] Comment on above: Performed By: #### 4 1000, 68660, 31427, 89267, 08735, 21473 ####[place] [address] [address] Lymphocytes/100 WBC Auto (Bld) 15.8 % Low 20.0-45.0 The [facility] Comment on above: Performed By: #### 4 1000, 38800, 32058, 43224, 39299, 63041 ####[facility] MCH Auto Entitic mass (RBC) 29.1 pg Normal 27.0-33.0 The [facility] Comment on above: Performed By: #### 4 1000, 48598, 91542, 40599, 14053, 17180 ####[place] [address] [address] MCHC Auto mass conc (RBC) 33.2 g/dL Normal 32.0-35.0 The [facility] Comment on above: Performed By: #### 4 1000, 13804, 18959, 84618, 87926, 20287 ####[facility] MCV Auto Entitic volume (RBC) 87.7 fL Normal 82.0-98.0 The [facility] Comment on above: Performed By: #### 4 1000, 35244, 39187, 17058, 30143, 21139 ####[facility] Monocytes Auto #/vol (Bld) 0.7 10*3/uL Normal 0.1-1.0 [facility] Comment on above: Performed By: #### 4 1000, 80205, 91735, 16710, 97689, 70249 ####[facility] MONOS 10.6 % Normal 5.0-12.0 The [facility] Comment on above: Performed By: #### 4 1000, 79849, 58317, 99341, 89477, 62706 ####[facility]3000 [facility].[address] Neutrophils/100 WBC Auto (Bld) 70.5 % Normal 40.0-72.0 [facility] Comment on above: Performed By: #### 4 1000, 21248, 65582, 25305, 09845, 65513 ####[facility]3000 [facility] Nucleated RBC/100 WBC Ratio (Bld) 0 % Normal 0-0 The [facility] Comment on above: Performed By: #### 4 1000, 44482, 37148, 63035, 83993, 05979 ####[place] [address] [facility].[address] PLAT CNT 231 10*3/uL Normal 150-400 The [facility] Comment on above: Performed By: #### 4 1000, 84001, 11759, 01488, 79865, 54015 ####[facility]3000 [facility].[address] RBC Auto #/vol (Bld) 5.12 10*6/uL High 3.80-5.00 Th e [facility] Comment on above: Performed By: #### 4 1000, 53965, 43549, 62228, 82609, 68563 ####[facility]3000 [facility] WBC Auto #/vol (Bld) 6.32 10*3/uL Normal 4.00-10.60 Th e [facility] Comment on above: Performed By: #### 4 1000, 48415, 47262, 32779, 78269, 79040 ####[facility]3000 [facility] COMP METABOLIC PANELon 08-26 Albumin mass conc 4.3 g/dL Normal 3.5-5.7 The [facility] Comment on above: Performed By: #### 4 1000, 87584, 73759, 70559, 83187, 29449 ####[place] [address] [facility].[address] ALKALINE PHOSPH 125 IU/L High 34-104 The [facility] Comment on above: Performed By: #### 4 1000, 50767, 38408, 78954, 74678, 26050 ####[facility]3000 [facility].[address] ALT enzyme act/vol 17 U/L Normal 7-52 [facility] Comment on above: Performed By: #### 4 1000, 43866, 23873, 54289, 67503, 61194 ####[facility]3000 [facility] AST enzyme act/vol 23 U/L Normal 13-39 [facility] Comment on above: Performed By: #### 4 1000, 03471, 60785, 40743, 69913, 04600 ####[facility]3000 [facility].[address] Bilirubin mass conc 0.4 mg/dL Normal 0.3-1.0 [facility] Comment on above: Performed By: #### 4 1000, 94283, 72144, 47567, 95978, 84604 ####[facility] [place] [address], [place] Calcium mass conc 9.6 mg/dL Normal 8.6-10.3 [facility] Comment on above: Performed By: #### 4 1000, 91845, 37735, 26515, 92432, 30611 ####[facility] [place] [address], [place] Chloride molar conc 104 mmol/L Normal 98-107 The [facility] Comment on above: Performed By: #### 4 1000, 18818, 05335, 13493, 78215, 66125 ####[facility] [place] [address], [place] CO2 molar conc 27 mmol/L Normal 21-31 The [facility] Comment on above: Performed By: #### 4 1000, 27568, 57450, 23699, 86190, 76597 ####[facility] [place] [address], [place] Creatinine mass conc 0.77 mg/dL Normal 0.60-1.20 The [facility] Comment on above: Performed By: #### 4 1000, 47602, 45015, 68505, 47204, 40577 ####[facility] [place] [address], [place] GFR/1.73 sq M predicted among blacks MDRD vol rate/area (S/P/Bld) mL/min/{1.73_m2} Normal >60 The [facility] Comment on above: Performed By: #### 4 1000, 51439, 30647, 14190, 33784, 50688 ####[facility] [place] [address], [place] GFR/1.73 sq M predicted among non-blacks MDRD vol rate/area (S/P/Bld) mL/min/{1.73_m2} Normal >60 The [facility] Comment on above: Performed By: #### 4 1000, 71270, 93848, 15322, 17391, 27682 ####[facility] [place] [address], [facility] Glucose mass conc 95 mg/dL Normal 70-100 The [facility] Comment on above: Performed By: #### 4 1000, 00251, 57566, 08208, 34809, 39853 ####[facility] [place] [address], [facility] Potassium molar conc 4.1 mmol/L Normal 3.5-5.1 The [facility] Comment on above: Performed By: #### 4 1000, 17098, 11309, 92552, 73046, 09731 ####[facility] [place] [address], [facility] Protein mass conc 7.3 g/dL Normal 6.0-8.3 The [facility] Comment on above: Performed By: #### 4 1000, 82522, 79851, 41983, 03648, 38571 ####[facility] [place] [address], [facility] Sodium molar conc 139 mmol/L Normal 136-145 The [facility] Comment on above: Performed By: #### 4 1000, 04430, 49213, 24901, 31408, 47646 ####[facility] [place] [address], [place] Urea nitrogen mass conc 12 mg/dL Normal 7-25 The [facility] Comment on above: Performed By: #### 4 1000, 57317, 08232, 74260, 82021, 24100 ####[facility] [place] [address], [facility] DIRECT BILIon 08-26-2017 Bilirubin.direct mass conc 0.1 mg/dL Normal 0.0-0.2 [facility] Comment on above: Performed By: #### 4 1000, 43313, 84368, 48927, 98110, 75436 ####[facility]3000 [facility].[address] EVEROLIMUS [id number] EVEROLIMUS 5.6 ng/mL Normal [facility] Comment on above: Result Comment: [...] transplantcenter.Test developed and characteristics determined by [facility]. See Compliance Statement B: [employer]/CSPerformed by [employer],[address] [place] [address] [id number] obt.Bindo, Leonid Antonio MD - Lab. Director HEMOGLOBIN A1Con 08-26-2017 Glucose mass conc 114 mg/dL Normal 70-126 [facility] Comment on above: Performed By: #### 4 1000, 31531, 26104, 57856, 50788, 88016 ####[facility]3000 [facility] [place] [address], [facility] Hemoglobin A1c/Hemoglobin.total mass fraction (Bld) 5.6 % Normal 4.0-6.0 The [facility] Comment on above: Performed By: #### 4 1000, 70916, 15842, 68134, 80646, 33603 ####[facility] [place] [address], [facility] LIPID PROFILEon 08-26-2017 Cholesterol in HDL mass conc 49 mg/dL Normal 23-92 The [facility] Comment on above: Result Comment: Slig ht variation in normal range could be due to gender and/or age.HDL CHOLESTEROL REFERENCE RANGE:20 years and older Cardiovascular Risk> or =60 mg/dL [id number] TO 59 mg/dL Low Risk<40 mg/dL High Risk Performed By: #### 4 1000, 95182, 20313, 34896, 40093, 81293 ####[facility] [place] [address], [facility] Cholesterol in LDL mass conc 76 mg/dL Normal 0-130 The [facility] Comment on above: Result Comment: LDL IS A CALCULATIONLDL IS ONLY VALID IF THE TRIG IS LESS THAN 400. Performed By: #### 4 1000, 25039, 27573, 38088, 63826, 56448 ####[facility] [place] [address], [facility] Cholesterol mass conc 152 mg/dL Normal 120-200 The [facility] Comment on above: Result Comment: CHOL ESTEROL REFERENCE RANGE:20 YEARS AND OLDER CARDIOVASCULAR RISKLess than 200 mg/dl Low Ofpc551 to 239 mg/dl Borderline Vcdv700 mg/dl and greater High Risk Performed By: #### 4 1000, 62772, 71412, 71718, 33855, 33551 ####[facility] [place] [address], [facility] Cholesterol.total/Cho lesterol in HDL mass ratio 3.1 {ratio} Normal .0-4.5 The [facility] Comment on above: Performed By: #### 4 1000, 21543, 28375, 49146, 75898, 73256 ####[facility] NON-HDL CHOLESTEROL 103 mg/dL Normal The [facility] Comment on above: Performed By: #### 4 1000, 74423, 03071, 71465, 55746, 85213 ####[facility]3000 [facility].[address] Triglyceride mass conc 133 mg/dL Normal 40-149 The [facility] Comment on above: Result Comment: TRIG LYCERIDE REFERENCE RANGE:20 YEARS AND OLDER CARDIOVASCULAR RISKLESS THAN 150 mg/dl LOW [id number] TO 199 mg/dl BORDERLINE [id number] mg/dl AND GREATER HIGH RISK Performed By: #### 4 1000, 68133, 89645, 44943, 02600, 21481 ####[place] [address] [address] VLDL CHOL 27 mg/dL Normal 0-40 The [facility] Comment on above: Performed By: #### 4 1000, 10028, 95820, 98010, 29021, 15816 ####[facility]3000 [facility] MAGNESIUM BLOODon 08-26-2017 Magnesium mass conc 1.9 mg/dL Normal 1.9-2.7 The [facility] Comment on above: Performed By: #### 4 1000, 35280, 67698, 77356, 82699, 29420 ####[facility]3000 [facility].[address] PHOSPHORUS BLOODon 8 Phosphate mass conc 3.4 mg/dL Normal 2.5-5.0 The [facility] Comment on above: Performed By: #### 4 1000, 68029, 89537, 01899, 71364, 87915 ####[facility]3000 [facility].[address] TACROLIMUSon 08-26-2017 Tacrolimus mass conc (Bld) 4.3 ng/mL Low 5.0-20.0 The [facility] Comment on above: Result Comment: The [employer] Tacrolimus assay is a delayed one-step immunoassayfor the quantitative determination of tacrolimus in human whole bloodusing the chemiluminescent microparticle immunoassay (CMIA) technologywith flexible assay protocols, referred to as Chemiflex. Performed By: #### 4 1000, 18115, 97002, 88261, 29090, 46206 ####[facility] URIC ACID BLOODon 08-26-2017 Urate mass conc 4.6 mg/dL Normal 2.3-6.6 The [facility] Comment on above: Performed By: #### 4 1000, 89715, 35625, 66495, 59448, 68966 ####[facility] CBC W/DIFFon 07-23-2017 ABS BASOPHILS 0.0 10*3/uL Normal 0.0-0.2 The [facility] Comment on above: Performed By: #### 4 1000, 53544, 08940, 94703, 46018, 96743 ####[facility] ABS IMM GRANS 0.0 10*3/uL Normal 0.0-0.2 The [facility] Comment on above: Performed By: #### 4 1000, 15922, 63718, 18925, 84152, 49569 ####[facility] ABS NEUTROPHILS 4.4 10*3/uL Normal 1.6-7.6 The [facility] Comment on above: Performed By: #### 4 1000, 62663, 17695, 62324, 54208, 10482 ####[facility] Basophils Auto #/vol (Bld) 0.2 % Normal 0.0-1.0 The [facility] Comment on above: Performed By: #### 4 1000, 45322, 25824, 90535, 48558, 40478 ####[facility] Eosinophils Auto #/vol (Bld) 0.1 10*3/uL Normal 0.0-0.5 The [facility] Comment on above: Performed By: #### 4 1000, 16677, 47512, 13050, 38602, 61393 ####[facility] Eosinophils/100 WBC Auto (Bld) 2.1 % Normal 0.0-6.0 The [facility] Comment on above: Performed By: #### 4 1000, 49855, 75144, 62477, 53613, 19476 ####[facility]3000 [facility] Erythrocyte distribution width Auto Ratio (RBC) 13.7 % Normal 11.5-15.0 The [facility] Comment on above: Performed By: #### 4 1000, 94236, 10249, 15915, 32022, 78914 ####[facility] Hematocrit Auto Volume Fraction (Bld) 44.4 % Normal 36.0-45.0 The [facility]borne[facility] Comment on above: Performed By: #### 4 1000, 56312, 62656, 70293, 91197, 01004 ####[facility] Hemoglobin mass conc (Bld) 14.7 g/dL Normal 12.0-15.0 The [facility] Comment on above: Performed By: #### 4 1000, 15905, 93192, 98083, 49963, 82110 ####[facility] [place] [address], [place] IMMATURE GRANS 0.5 % Normal 0.0-1.0 The Nina barber [facility] Comment on above: Performed By: #### 4 1000, 92679, 13836, 55465, 62031, 68041 ####[facility] Lymphocytes Auto #/vol (Bld) 1.0 10*3/uL Low 1.2-4.0 The [facility] Comment on above: Performed By: #### 4 1000, 72640, 86141, 93798, 81526, 90398 ####[facility]3000 [facility] Lymphocytes/100 WBC Auto (Bld) 15.5 % Low 20.0-45.0 The [facility] Comment on above: Performed By: #### 4 1000, 59909, 72930, 14176, 16871, 24196 ####[facility]3000 [facility] MCH Auto Entitic mass (RBC) 28.9 pg Normal 27.0-33.0 The [facility] Comment on above: Performed By: #### 4 1000, 63583, 10807, 87197, 12819, 75831 ####[facility]3000 [facility].[address] MCHC Auto mass conc (RBC) 33.1 g/dL Normal 32.0-35.0 The [facility] Comment on above: Performed By: #### 4 1000, 43625, 36481, 55290, 64808, 31882 ####[facility]3000 [facility].[address] MCV Auto Entitic volume (RBC) 87.4 fL Normal 82.0-98.0 The [facility] Comment on above: Performed By: #### 4 1000, 52934, 98758, 11305, 72221, 05805 ####[facility] Monocytes Auto #/vol (Bld) 0.8 10*3/uL Normal 0.1-1.0 [facility] Comment on above: Performed By: #### 4 1000, 50394, 49335, 60898, 39639, 50339 ####[facility] [facility] MONOS 12.3 % High 5.0-12.0 The [facility] Comment on above: Performed By: #### 4 1000, 74575, 11470, 68817, 45827, 44508 ####[place] [address] [facility].[address] Neutrophils/100 WBC Auto (Bld) 69.4 % Normal 40.0-72.0 The [facility] Comment on above: Performed By: #### 4 1000, 39693, 04564, 35989, 05222, 72179 ####[address] Nucleated RBC/100 WBC Ratio (Bld) 0 % Normal 0-0 The [facility] Comment on above: Performed By: #### 4 1000, 53420, 80894, 83770, 18573, 98095 ####[place] [address] [facility].[address] PLAT CNT 218 10*3/uL Normal 150-400 The [facility] Comment on above: Performed By: #### 4 1000, 66743, 50090, 78199, 22880, 62725 ####[address] RBC Auto #/vol (Bld) 5.08 10*6/uL High 3.80-5.00 Th e [facility] Comment on above: Performed By: #### 4 1000, 77179, 39526, 70513, 38149, 77455 ####[facility]3000 [facility].[address] WBC Auto #/vol (Bld) 6.3 10*3/uL Normal 4.0-10.6 The [facility] Comment on above: Performed By: #### 4 1000, 01381, 99099, 33405, 96621, 74419 ####[facility]3000 [facility] COMP METABOLIC PANELon 07-23 Albumin mass conc 4.2 g/dL Normal 3.5-5.7 The [facility] Comment on above: Performed By: #### 4 1000, 01469, 42660, 77309, 71401, 04276 ####[facility]3000 [facility].[address] ALKALINE PHOSPH 113 IU/L High 34-104 The [facility] Comment on above: Performed By: #### 4 1000, 95524, 72423, 92591, 24111, 49410 ####[facility]3000 [facility].[address] ALT enzyme act/vol 23 U/L Normal 7-52 [facility] Comment on above: Performed By: #### 4 1000, 68893, 57463, 93475, 45792, 90012 ####[place] [address] [facility].[address] AST enzyme act/vol 25 U/L Normal 13-39 The [facility] Comment on above: Performed By: #### 4 1000, 57362, 02102, 11105, 07848, 99237 ####[facility]3000 [facility].[address] Bilirubin mass conc 0.6 mg/dL Normal 0.3-1.0 [facility] Comment on above: Performed By: #### 4 1000, 20009, 54128, 57925, 17928, 26682 ####[facility] [place] [address], [facility] Calcium mass conc 9.6 mg/dL Normal 8.6-10.3 The [facility] Comment on above: Performed By: #### 4 1000, 73781, 97239, 88935, 56191, 23605 ####[facility] [place] [address], [place] Chloride molar conc 104 mmol/L Normal 98-107 [facility] Comment on above: Performed By: #### 4 1000, 02633, 77683, 30773, 31502, 63057 ####[facility] [place] [address], [place] CO2 molar conc 25 mmol/L Normal 21-31 The [facility] Comment on above: Performed By: #### 4 1000, 49367, 83590, 29922, 83637, 97603 ####[facility] [place] [address], [place] Creatinine mass conc 0.80 mg/dL Normal 0.60-1.20 The [facility] Comment on above: Performed By: #### 4 1000, 45815, 41028, 67821, 71237, 19732 ####[facility] [place] [address], [place] GFR/1.73 sq M predicted among blacks MDRD vol rate/area (S/P/Bld) mL/min/{1.73_m2} Normal >60 The [facility] Comment on above: Performed By: #### 4 1000, 49479, 27072, 09853, 00058, 91629 ####[facility] [place] [address], [place] GFR/1.73 sq M predicted among non-blacks MDRD vol rate/area (S/P/Bld) mL/min/{1.73_m2} Normal >60 The [facility] Comment on above: Performed By: #### 4 1000, 53921, 59283, 13690, 23350, 51115 ####[facility] [place] [address], [facility] Glucose mass conc 91 mg/dL Normal 70-100 The [facility] Comment on above: Performed By: #### 4 1000, 62994, 27063, 35088, 25711, 60927 ####[facility] [place] [address], [facility] Potassium molar conc 4.0 mmol/L Normal 3.5-5.1 The [facility] Comment on above: Performed By: #### 4 1000, 20996, 79445, 07387, 34211, 31292 ####[facility] [place] [address], [facility] Protein mass conc 6.8 g/dL Normal 6.0-8.3 The [facility] Comment on above: Performed By: #### 4 1000, 16026, 20560, 61548, 33362, 37483 ####[facility] [place] [address], [facility] Sodium molar conc 140 mmol/L Normal 136-145 The [facility] Comment on above: Performed By: #### 4 1000, 26538, 33193, 09316, 93453, 98137 ####[facility] [place] [address], [facility] Urea nitrogen mass conc 16 mg/dL Normal 7-25 The [facility] Comment on above: Performed By: #### 4 1000, 72916, 09948, 89027, 23260, 95384 ####[facility] [place] [address], [facility] DIRECT BILIon 07-23-2017 Bilirubin.direct mass conc 0.2 mg/dL Normal 0.0-0.2 The [facility] Comment on above: Performed By: #### 4 1000, 13219, 21336, 83508, 76971, 19621 ####[facility] [place] [address], [facility] EVEROLIMUS [id number] 8 EVEROLIMUS 5.3 ng/mL Normal The [facility] Comment on above: Result Comment: Ther [...] transplantcenter.Test developed and characteristics determined by [employer]. See Compliance Statement B: [employer]/CSPerformed by [employer],[address] [place] [address] 96534 mqa.Bindo, Leonid Antonio MD - Lab. Director LIPID PROFILEon 07-23-2017 Cholesterol in HDL mass conc 45 mg/dL Normal 23-92 The [facility] Comment on above: Result Comment: Slig ht variation in normal range could be due to gender and/or age.HDL CHOLESTEROL REFERENCE RANGE:20 years and older Cardiovascular Risk> or =60 mg/dL [id number] TO 59 mg/dL Low Risk<40 mg/dL High Risk Performed By: #### 4 1000, 62554, 64913, 60869, 07776, 22931 ####[facility] [place] [address], [facility] Cholesterol in LDL mass conc 79 mg/dL Normal 0-130 The [facility] Comment on above: Result Comment: LDL IS A CALCULATIONLDL IS ONLY VALID IF THE TRIG IS LESS THAN 400. Performed By: #### 4 1000, 46697, 26785, 59523, 94348, 57282 ####[facility] [place] [address], [facility] Cholesterol mass conc 141 mg/dL Normal 120-200 The [facility] Comment on above: Result Comment: CHOL ESTEROL REFERENCE RANGE:20 YEARS AND OLDER CARDIOVASCULAR RISKLess than 200 mg/dl Low Ongh943 to 239 mg/dl Borderline Nyhz111 mg/dl and greater High Risk Performed By: #### 4 1000, 35324, 21460, 48010, 06575, 39428 ####[facility] [place] [address], [facility] Cholesterol.total/Cho lesterol in HDL mass ratio 3.1 {ratio} Normal .0-4.5 The [facility] Comment on above: Performed By: #### 4 1000, 92035, 09625, 07532, 70446, 77026 ####[facility] [place] [address], [facility] NON-HDL CHOLESTEROL 96 mg/dL Normal The [facility] Comment on above: Performed By: #### 4 1000, 64719, 23214, 49053, 77265, 35213 ####[facility] [place] [address], [place] Triglyceride mass conc 83 mg/dL Normal 40-149 The [facility] Comment on above: Result Comment: TRIG LYCERIDE REFERENCE RANGE:20 YEARS AND OLDER CARDIOVASCULAR RISKLESS THAN 150 mg/dl LOW [id number] TO 199 mg/dl BORDERLINE [id number] mg/dl AND GREATER HIGH RISK Performed By: #### 4 1000, 07744, 45441, 08161, 22553, 60974 ####[facility] VLDL CHOL 17 mg/dL Normal 0-40 The [facility] Comment on above: Performed By: #### 4 1000, 67023, 43090, 47544, 06877, 55413 ####[facility]3000 [facility].[address] MAGNESIUM BLOODon 07-23-2017 Magnesium mass conc 2.0 mg/dL Normal 1.9-2.7 The [facility] Comment on above: Performed By: #### 4 1000, 31275, 71494, 20307, 94177, 91396 ####[place] [address] [facility] [place] [address], [facility] PHOSPHORUS BLOODon 8 Phosphate mass conc 4.0 mg/dL Normal 2.5-5.0 [facility] Comment on above: Performed By: #### 4 1000, 83309, 35412, 14752, 18212, 57703 ####[facility]3000 [facility].[address] TACROLIMUSon 07-23-2017 Tacrolimus mass conc (Bld) 4.6 ng/mL Low 5.0-20.0 The [facility] Comment on above: Result Comment: The [employer] Tacrolimus assay is a delayed one-step immunoassayfor the quantitative determination of tacrolimus in human whole bloodusing the chemiluminescent microparticle immunoassay (CMIA) technologywith flexible assay protocols, referred to as Chemiflex. Performed By: #### 4 1000, 95175, 32035, 42137, 81697, 93712 ####[facility]3000 [facility] [place] [address], [facility] URIC ACID BLOODon 07-23-2017 Urate mass conc 4.7 mg/dL Normal 2.3-6.6 The [facility] Comment on above: Performed By: #### 4 1000, 83191, 84480, 26460, 72596, 62761 ####[facility] CBC W/DIFFon 06-20-2017 ABS BASOPHILS 0.0 10*3/uL Normal 0.0-0.2 The [facility] Comment on above: Performed By: #### 4 1000, 97127, 01982, 44435, 09600, 23999 ####[address] ABS IMM GRANS 0.0 10*3/uL Normal 0.0-0.2 The [facility] Comment on above: Performed By: #### 4 1000, 56918, 37319, 10712, 85387, 12515 ####[place] [address] ABS NEUTROPHILS 4.2 10*3/uL Normal 1.6-7.6 The [facility] Comment on above: Performed By: #### 4 1000, 35847, 47331, 03284, 73482, 00000 ####[place] [address] Basophils Auto #/vol (Bld) 0.2 % Normal 0.0-1.0 The [facility] Comment on above: Performed By: #### 4 1000, 62308, 23103, 00948, 10551, 08569 ####[place] [address] [facility].[address] Eosinophils Auto #/vol (Bld) 0.1 10*3/uL Normal 0.0-0.5 The [facility] Comment on above: Performed By: #### 4 1000, 03004, 69648, 66699, 83669, 99906 ####[place] [address] Eosinophils/100 WBC Auto (Bld) 1.5 % Normal 0.0-6.0 The [facility] Comment on above: Performed By: #### 4 1000, 22328, 37337, 57500, 95479, 58730 ####[facility]3000 [facility].[address] Erythrocyte distribution width Auto Ratio (RBC) 13.4 % Normal 11.5-15.0 The [facility] Comment on above: Performed By: #### 4 1000, 45279, 09871, 97396, 06324, 83116 ####[facility]3000 [facility].[address] Hematocrit Auto Volume Fraction (Bld) 44.9 % Normal 36.0-45.0 The [facility] Comment on above: Performed By: #### 4 1000, 90778, 76153, 59068, 30556, 83641 ####[place] [address] [facility].[address] Hemoglobin mass conc (Bld) 14.9 g/dL Normal 12.0-15.0 The [facility] Comment on above: Performed By: #### 4 1000, 55071, 87986, 18120, 18720, 68063 ####[facility]3000 [facility].[address] IMMATURE GRANS 0.2 % Normal 0.0-1.0 The [facility] Comment on above: Performed By: #### 4 1000, 02438, 29721, 27118, 10871, 83074 ####[facility]3000 [facility].[address] Lymphocytes Auto #/vol (Bld) 1.1 10*3/uL Low 1.2-4.0 The [facility] Comment on above: Performed By: #### 4 1000, 39006, 38650, 89962, 84277, 33122 ####[facility]3000 [facility].[address] Lymphocytes/100 WBC Auto (Bld) 17.4 % Low 20.0-45.0 The [facility] Comment on above: Performed By: #### 4 1000, 00572, 93657, 47528, 57591, 39514 ####[facility] MCH Auto Entitic mass (RBC) 29.2 pg Normal 27.0-33.0 The [facility] Comment on above: Performed By: #### 4 1000, 61878, 14430, 94049, 62529, 83724 ####[facility] MCHC Auto mass conc (RBC) 33.2 g/dL Normal 32.0-35.0 The [facility] Comment on above: Performed By: #### 4 1000, 30116, 45294, 29205, 77987, 11067 ####[facility] MCV Auto Entitic volume (RBC) 87.9 fL Normal 82.0-98.0 The [facility] Comment on above: Performed By: #### 4 1000, 91890, 43930, 00392, 27743, 00916 ####[facility] Monocytes Auto #/vol (Bld) 0.7 10*3/uL Normal 0.1-1.0 The [facility] Comment on above: Performed By: #### 4 1000, 22753, 54729, 09675, 38698, 46763 ####[facility] MONOS 11.3 % Normal 5.0-12.0 The [facility] Comment on above: Performed By: #### 4 1000, 54858, 44820, 87563, 72687, 99292 ####[facility] Neutrophils/100 WBC Auto (Bld) 69.4 % Normal 40.0-72.0 The [facility] Comment on above: Performed By: #### 4 1000, 95437, 92401, 14421, 35067, 17912 ####[facility] Nucleated RBC/100 WBC Ratio (Bld) 0 % Normal 0-0 The [facility] Comment on above: Performed By: #### 4 1000, 53797, 67925, 29559, 84719, 42910 ####[facility] PLAT CNT 198 10*3/uL Normal 150-400 The [facility] Comment on above: Performed By: #### 4 1000, 25553, 75451, 96225, 95084, 63292 ####[facility] [facility] RBC Auto #/vol (Bld) 5.11 10*6/uL High 3.80-5.00 Th [facility] [place] Comment on above: Performed By: #### 4 1000, 14768, 58332, 69209, 86396, 79733 ####[facility] WBC Auto #/vol (Bld) 6.0 10*3/uL Normal 4.0-10.6 The [facility] Comment on above: Performed By: #### 4 1000, 75698, 01486, 66751, 86276, 79134 ####[facility] COMP METABOLIC PANELon 06-20 Albumin mass conc 4.4 g/dL Normal 3.5-5.7 The [facility] Comment on above: Performed By: #### 4 1000, 28244, 38109, 38522, 85006, 30416 ####[facility] [place] [address], [facility] ALKALINE PHOSPH 133 IU/L High 34-104 The [facility] Comment on above: Performed By: #### 4 1000, 60947, 54845, 50889, 67358, 61265 ####[facility] [place] [address], [facility] ALT enzyme act/vol 16 U/L Normal 7-52 The [facility] Comment on above: Performed By: #### 4 1000, 62613, 19126, 56854, 31576, 32900 ####[facility] [place] [address], [facility] AST enzyme act/vol 21 U/L Normal 13-39 The [facility] Comment on above: Performed By: #### 4 1000, 03937, 01245, 23486, 88603, 98281 ####[facility] [place] [address], [facility] Bilirubin mass conc 0.8 mg/dL Normal 0.3-1.0 The [facility] Comment on above: Performed By: #### 4 1000, 18339, 26916, 90036, 75419, 04430 ####[facility] [place] [address], [facility] Calcium mass conc 10.0 mg/dL Normal 8.6-10.3 The [facility] Comment on above: Performed By: #### 4 1000, 74332, 09658, 90684, 01429, 35904 ####[facility].[place] [id number], [facility] Chloride molar conc 106 mmol/L Normal 98-107 The [facility] Comment on above: Performed By: #### 4 1000, 41189, 77710, 47517, 17656, 56564 ####[facility] [id number], [place] CO2 molar conc 27 mmol/L Normal 21-31 [facility] Comment on above: Performed By: #### 4 1000, 99484, 75520, 96762, 31197, 21218 ####[facility] [place] [address], [facility] Creatinine mass conc 0.74 mg/dL Normal 0.60-1.20 [facility] Comment on above: Performed By: #### 4 1000, 72359, 37228, 02117, 82036, 47537 ####[facility] [place] [address], [facility] GFR/1.73 sq M predicted among blacks MDRD vol rate/area (S/P/Bld) mL/min/{1.73_m2} Normal >60 The [facility] Comment on above: Performed By: #### 4 1000, 00913, 78544, 02803, 91700, 54392 ####[facility] [place] [address], [facility] GFR/1.73 sq M predicted among non-blacks MDRD vol rate/area (S/P/Bld) mL/min/{1.73_m2} Normal >60 The [facility] Comment on above: Performed By: #### 4 1000, 53234, 96297, 34173, 37123, 29800 ####[facility] [place] [address], [facility] Glucose mass conc 95 mg/dL Normal 70-100 [facility] Comment on above: Performed By: #### 4 1000, 33669, 47383, 90662, 65001, 93014 ####[facility] [place] [address], [facility] Potassium molar conc 3.8 mmol/L Normal 3.5-5.1 [facility] Comment on above: Performed By: #### 4 1000, 40913, 58572, 52813, 16979, 52485 ####[facility] Protein mass conc 7.3 g/dL Normal 6.0-8.3 The [facility] Comment on above: Performed By: #### 4 1000, 53778, 92161, 53834, 69507, 74251 ####[facility] Sodium molar conc 137 mmol/L Normal 136-145 The [facility] Comment on above: Performed By: #### 4 1000, 07124, 99639, 71041, 65337, 93130 ####[facility]3000 [facility].[address] Urea nitrogen mass conc 16 mg/dL Normal 7-25 The [facility] Comment on above: Performed By: #### 4 1000, 76411, 77454, 34528, 38141, 71035 ####[facility] [facility] DIRECT BILIon 06-20-2017 Bilirubin.direct mass conc 0.1 mg/dL Normal 0.0-0.2 The [facility] Comment on above: Performed By: #### 4 1000, 93983, 33508, 18576, 38660, 90959 ####[facility]3000 [facility].[address] EVEROLIMUS [id number] 8 EVEROLIMUS 6.7 ng/mL Normal The [facility] Comment on above: Result Comment: Ther [...] transplantcenter.Test developed and characteristics determined by [employer]. See Compliance Statement B: Bindo/CSPerformed by [employer],[address] [place] [id number] pti.Bindo, Leonid Antonio MD - Lab. Director LIPID PROFILEon 06-20-2017 Cholesterol in HDL mass conc 45 mg/dL Normal 23-92 The [facility] Comment on above: Result Comment: Slig ht variation in normal range could be due to gender and/or age.HDL CHOLESTEROL REFERENCE RANGE:20 years and older Cardiovascular Risk> or =60 mg/dL [id number] TO 59 mg/dL Low Risk<40 mg/dL High Risk Performed By: #### 4 1000, 50459, 15144, 79248, 54334, 20994 ####[facility] Cholesterol in LDL mass conc 58 mg/dL Normal 0-130 The [facility] Comment on above: Result Comment: LDL IS A CALCULATIONLDL IS ONLY VALID IF THE TRIG IS LESS THAN 400. Performed By: #### 4 1000, 15976, 00905, 53596, 91275, 90768 ####[facility] [place] [address], [facility] Cholesterol mass conc 126 mg/dL Normal 120-200 The [facility] Comment on above: Result Comment: CHOL ESTEROL REFERENCE RANGE:20 YEARS AND OLDER CARDIOVASCULAR RISKLess than 200 mg/dl Low Hmsh200 to 239 mg/dl Borderline Bobi607 mg/dl and greater High Risk Performed By: #### 4 1000, 72701, 22333, 00980, 44941, 56432 ####[facility] Cholesterol.total/Cho lesterol in HDL mass ratio 2.8 {ratio} Normal .0-4.5 The [facility] Comment on above: Performed By: #### 4 1000, 23803, 26791, 59046, 19764, 35932 ####[facility] NON-HDL CHOLESTEROL 81 mg/dL Normal The [facility] Comment on above: Performed By: #### 4 1000, 56676, 08737, 88555, 11404, 25129 ####[facility] Triglyceride mass conc 113 mg/dL Normal 40-149 The [facility] Comment on above: Result Comment: TRIG LYCERIDE REFERENCE RANGE:20 YEARS AND OLDER CARDIOVASCULAR RISKLESS THAN 150 mg/dl LOW [id number] TO 199 mg/dl BORDERLINE [id number] mg/dl AND GREATER HIGH RISK Performed By: #### 4 1000, 11503, 11096, 41203, 01910, 11795 ####[facility] VLDL CHOL 23 mg/dL Normal 0-40 The [facility] Comment on above: Performed By: #### 4 1000, 69021, 47065, 12046, 82911, 13206 ####[facility] [place] [address], [facility] MAGNESIUM BLOODon 06-20-2017 Magnesium mass conc 1.9 mg/dL Normal 1.9-2.7 The [facility] Comment on above: Performed By: #### 4 1000, 71051, 92202, 41540, 52891, 56270 ####[facility] [place] [address], [facility] PHOSPHORUS BLOODon 03-23-201 8 Phosphate mass conc 3.1 mg/dL Normal 2.5-5.0 [facility] Comment on above: Performed By: #### 4 1000, 47672, 61525, 75515, 60473, 94204 ####[facility] TACROLIMUSon 06-20-2017 Tacrolimus mass conc (Bld) 4.2 ng/mL Low 5.0-20.0 The [facility] Comment on above: Result Comment: The [employer] Tacrolimus assay is a delayed one-step immunoassayfor the quantitative determination of tacrolimus in human whole bloodusing the chemiluminescent microparticle immunoassay (CMIA) technologywith flexible assay protocols, referred to as Chemiflex. Performed By: #### 4 1000, 76556, 90732, 34803, 64481, 14217 ####[facility] URIC ACID BLOODon 06-20-2017 Urate mass conc 4.3 mg/dL Normal 2.3-6.6 The [facility] Comment on above: Performed By: #### 4 1000, 68467, 41971, 16113, 23065, 37320 ####[facility] BK VIRUS QUANTITATION PCR BL OODon 05-27-2017 BKV QUANT PCR Not detected Normal The [facility] Comment on above: Result Comment: Meth od: BK virus was measured by quantitative polymerase chain reactionusing a TaqMan probe targeting the polyomavirus BK TOYS INSPECTOR-1 gene.The lower limit of quantitation of the assay is 500 copies of BK genomeper milliliter of plasma or urine, and any detectable BK DNA below thatlevel is reported as: Detected, <500 copies/ml. Serial BK virusmeasurement can be used to monitor disease activity. (Reference:Kelsie vaughanl. J CLIN MICRO 2004; 42:8971-4515).This test was developed and its performance characteristics determinedby the [facility]. It has not been approvedby the [place] Food and Drug Administration. However, such approval is notrequired for clinical implementation, and test results have been shownto be clinically useful. This laboratory is CAP accredited and CLIAcertified to perform high complexity testing. Performed By: #### 4 1000, 70074, 65908, 71214, 13974, 26459 ####[facility]3000 [facility].[address] LOG 10 COPIES Not detected Normal The [facility] Comment on above: Performed By: #### 4 1000, 16277, 50817, 15398, 18013, 67580 ####[facility]3000 [facility].[address] CBC W/DIFFon 05-27-2017 ABS BASOPHILS 0.0 10*3/uL Normal 0.0-0.2 The [facility] Comment on above: Performed By: #### 4 1000, 44337, 59100, 47671, 72632, 08681 ####[facility]3000 [facility].[address] ABS IMM GRANS 0.0 10*3/uL Normal 0.0-0.2 The [facility] Comment on above: Performed By: #### 4 1000, 84287, 87433, 67404, 34491, 67881 ####[facility]3000 [facility].[address] ABS NEUTROPHILS 4.8 10*3/uL Normal 1.6-7.6 The [facility] Comment on above: Performed By: #### 4 1000, 11056, 45965, 13075, 49378, 12612 ####[facility]3000 [facility].[address] Basophils Auto #/vol (Bld) 0.0 % Normal 0.0-1.0 The [facility] Comment on above: Performed By: #### 4 1000, 85819, 76522, 41987, 14866, 02626 ####[facility] Eosinophils Auto #/vol (Bld) 0.1 10*3/uL Normal 0.0-0.5 The [facility] Comment on above: Performed By: #### 4 1000, 61639, 24568, 71181, 99015, 50077 ####[facility]3000 [facility].[address] Eosinophils/100 WBC Auto (Bld) 1.1 % Normal 0.0-6.0 The [facility] Comment on above: Performed By: #### 4 1000, 82046, 41642, 09529, 00170, 57858 ####[facility]3000 [facility].[address] Erythrocyte distribution width Auto Ratio (RBC) 13.5 % Normal 11.5-15.0 The [facility] Comment on above: Performed By: #### 4 1000, 78084, 18518, 84356, 19937, 10836 ####[facility]3000 [facility].[address] Hematocrit Auto Volume Fraction (Bld) 46.1 % High 36.0-45.0 The [facility] Comment on above: Performed By: #### 4 1000, 17601, 96063, 62566, 28103, 13409 ####[facility]3000 [facility].[address] Hemoglobin mass conc (Bld) 15.0 g/dL Normal 12.0-15.0 The [facility] Comment on above: Performed By: #### 4 1000, 28682, 39774, 66746, 60572, 16632 ####[facility]3000 [facility].[address] IMMATURE GRANS 0.3 % Normal 0.0-1.0 The [facility] Comment on above: Performed By: #### 4 1000, 39326, 77288, 56489, 94756, 89699 ####[facility]3000 [facility].[address] Lymphocytes Auto #/vol (Bld) 1.0 10*3/uL Low 1.2-4.0 The [facility] Comment on above: Performed By: #### 4 1000, 99165, 18293, 55236, 21839, 86589 ####[facility]3000 [facility].[address] Lymphocytes/100 WBC Auto (Bld) 15.7 % Low 20.0-45.0 The [facility] Comment on above: Performed By: #### 4 1000, 12284, 07951, 96599, 77396, 35517 ####[facility]3000 [facility].[address] MCH Auto Entitic mass (RBC) 28.8 pg Normal 27.0-33.0 The [facility] Comment on above: Performed By: #### 4 1000, 70819, 34786, 06159, 44433, 74289 ####[facility]3000 [facility].[address] MCHC Auto mass conc (RBC) 32.5 g/dL Normal 32.0-35.0 The [facility] Comment on above: Performed By: #### 4 1000, 22119, 48773, 83189, 23547, 54120 ####[facility]3000 [facility].[address] MCV Auto Entitic volume (RBC) 88.7 fL Normal 82.0-98.0 The [facility] Comment on above: Performed By: #### 4 1000, 63883, 72773, 22089, 33482, 79885 ####[facility]3000 [facility].[address] Monocytes Auto #/vol (Bld) 0.8 10*3/uL Normal 0.1-1.0 The [facility] Comment on above: Performed By: #### 4 1000, 91441, 77960, 96035, 17435, 83002 ####[facility] MONOS 11.4 % Normal 5.0-12.0 The [facility] Comment on above: Performed By: #### 4 1000, 19036, 98935, 05505, 68394, 41910 ####[facility] Neutrophils/100 WBC Auto (Bld) 71.5 % Normal 40.0-72.0 The [facility] Comment on above: Performed By: #### 4 1000, 40586, 51884, 86372, 22077, 42773 ####[facility] [facility] Nucleated RBC/100 WBC Ratio (Bld) 0 % Normal 0-0 The [facility] Comment on above: Performed By: #### 4 1000, 17446, 18968, 75426, 28722, 27478 ####[facility]3000 [facility].[address] PLAT CNT 199 10*3/uL Normal 150-400 The [facility] Comment on above: Performed By: #### 4 1000, 71347, 92619, 59993, 85207, 24810 ####[facility]3000 [facility].[address] RBC Auto #/vol (Bld) 5.20 10*6/uL High 3.80-5.00 Th e [facility] Comment on above: Performed By: #### 4 1000, 79215, 26987, 41475, 58767, 27873 ####[facility] WBC Auto #/vol (Bld) 6.6 10*3/uL Normal 4.0-10.6 The [facility] Comment on above: Performed By: #### 4 1000, 81730, 34057, 73627, 41299, 72209 ####[facility] [place] [address], [facility] COMP METABOLIC PANELon 05-27 Albumin mass conc 4.6 g/dL Normal 3.5-5.7 The [facility] Comment on above: Performed By: #### 4 1000, 55472, 65778, 06369, 69782, 23293 ####[facility] [place] [address], [facility] ALKALINE PHOSPH 105 IU/L High 34-104 The [facility] Comment on above: Performed By: #### 4 1000, 59680, 06151, 39727, 22607, 18280 ####[facility] [place] [address], [facility] ALT enzyme act/vol 20 U/L Normal 7-52 The [facility] Comment on above: Performed By: #### 4 1000, 46123, 80686, 50239, 59499, 40592 ####[facility] [place] [address], [facility] AST enzyme act/vol 23 U/L Normal 13-39 The [facility] Comment on above: Performed By: #### 4 1000, 67088, 41106, 35356, 63914, 09488 ####[facility] [place] [address], [facility] Bilirubin mass conc 0.6 mg/dL Normal 0.3-1.0 The [facility] Comment on above: Performed By: #### 4 1000, 23956, 32212, 16637, 84505, 37251 ####[facility] [place] [address], [place] Calcium mass conc 9.8 mg/dL Normal 8.6-10.3 The [facility] Comment on above: Performed By: #### 4 1000, 10424, 40804, 08916, 47048, 67004 ####[facility] [place] [address], [facility] Chloride molar conc 106 mmol/L Normal 98-107 [facility] Comment on above: Performed By: #### 4 1000, 59919, 82028, 07849, 16226, 30494 ####[facility] [place] [address], [place] CO2 molar conc 30 mmol/L Normal 21-31 [facility] Comment on above: Performed By: #### 4 1000, 37724, 38077, 90215, 67947, 59588 ####[facility] [place] [address], [place] Creatinine mass conc 0.80 mg/dL Normal 0.60-1.20 [facility] Comment on above: Performed By: #### 4 1000, 62725, 76492, 82265, 55906, 67369 ####[facility] [place] [address], [place] GFR/1.73 sq M predicted among blacks MDRD vol rate/area (S/P/Bld) mL/min/{1.73_m2} Normal >60 The [facility] Comment on above: Performed By: #### 4 1000, 10352, 13965, 57955, 19081, 21294 ####[facility] [place] [address], [place] GFR/1.73 sq M predicted among non-blacks MDRD vol rate/area (S/P/Bld) mL/min/{1.73_m2} Normal >60 The [facility] Comment on above: Performed By: #### 4 1000, 87821, 62467, 53814, 57921, 77059 ####[facility] [place] [address], [facility] Glucose mass conc 90 mg/dL Normal 70-100 The [facility] Comment on above: Performed By: #### 4 1000, 32822, 27672, 99905, 91750, 35347 ####[facility] [place] [address], [facility] Potassium molar conc 4.0 mmol/L Normal 3.5-5.1 The [facility] Comment on above: Performed By: #### 4 1000, 98301, 24105, 54811, 24337, 81824 ####[facility] [place] [address], [facility] Protein mass conc 6.8 g/dL Normal 6.0-8.3 The [facility] Comment on above: Performed By: #### 4 1000, 27379, 41813, 56924, 15022, 97484 ####[facility] [place] [address], [facility] Sodium molar conc 138 mmol/L Normal 136-145 The [facility] Comment on above: Performed By: #### 4 1000, 35658, 71051, 33136, 38970, 88966 ####[facility] [place] [address], [facility] Urea nitrogen mass conc 14 mg/dL Normal 7-25 The [facility] Comment on above: Performed By: #### 4 1000, 61248, 19442, 64624, 75376, 00373 ####[facility] [place] [address], [facility] DIRECT BILIon 05-27-2017 Bilirubin.direct mass conc 0.1 mg/dL Normal 0.0-0.2 The [facility] Comment on above: Performed By: #### 4 1000, 38403, 11864, 89484, 89662, 15047 ####[facility] EVEROLIMUS [id number] 8 EVEROLIMUS 5.6 ng/mL Normal [facility] Comment on above: Result Comment: [...] transplantcenter.Test developed and characteristics determined by [employer] [facility]. See Compliance Statement B: [employer]/CSPerformed by [employer],[address] [place] [address]23 gti.Bindo, Leonid Antonio MD - Lab. Director HEMOGLOBIN A1Con 05-27-2017 Glucose mass conc 108 mg/dL Normal 70-126 [facility] Comment on above: Performed By: #### 4 1000, 60790, 79437, 87820, 88738, 29350 ####[facility]3000 [facility] [place] [address], [facility] Hemoglobin A1c/Hemoglobin.total mass fraction (Bld) 5.4 % Normal 4.0-6.0 The [facility] Comment on above: Performed By: #### 4 1000, 10938, 84492, 14297, 47534, 24736 ####[facility]3000 [facility] LIPID PROFILEon 05-27-2017 Cholesterol in HDL mass conc 39 mg/dL Normal 23-92 The [facility] Comment on above: Result Comment: Slig ht variation in normal range could be due to gender and/or age.HDL CHOLESTEROL REFERENCE RANGE:20 years and older Cardiovascular Risk> or =60 mg/dL [id number] TO 59 mg/dL Low Risk<40 mg/dL High Risk Performed By: #### 4 1000, 67438, 13579, 07944, 73415, 04516 ####[facility] Cholesterol in LDL mass conc 52 mg/dL Normal 0-130 The [facility] Comment on above: Result Comment: LDL IS A CALCULATIONLDL IS ONLY VALID IF THE TRIG IS LESS THAN 400. Performed By: #### 4 1000, 49560, 91557, 34443, 58902, 15513 ####[facility] [place] [address], [facility] Cholesterol mass conc 117 mg/dL Low 120-200 The [facility] Comment on above: Result Comment: CHOL ESTEROL REFERENCE RANGE:20 YEARS AND OLDER CARDIOVASCULAR RISKLess than 200 mg/dl Low Xhoz921 to 239 mg/dl Borderline Kkuu689 mg/dl and greater High Risk Performed By: #### 4 1000, 38045, 59375, 96579, 42744, 92613 ####[facility] [place] [address], [facility] Cholesterol.total/Cho lesterol in HDL mass ratio 3.0 {ratio} Normal .0-4.5 The [facility] Comment on above: Performed By: #### 4 1000, 75936, 88747, 28243, 85105, 22465 ####[facility]3000 [facility] [place] [address], [facility] NON-HDL CHOLESTEROL 78 mg/dL Normal The [facility] Comment on above: Performed By: #### 4 1000, 10425, 25526, 84914, 04017, 24044 ####[facility]3000 [facility].[address] Triglyceride mass conc 131 mg/dL Normal 40-149 The [facility] Comment on above: Result Comment: TRIG LYCERIDE REFERENCE RANGE:20 YEARS AND OLDER CARDIOVASCULAR RISKLESS THAN 150 mg/dl LOW HINI044 TO 199 mg/dl BORDERLINE PDAB206 mg/dl AND GREATER HIGH RISK Performed By: #### 4 1000, 61730, 27845, 27947, 60525, 34206 ####[facility] [facility].[address] VLDL CHOL 26 mg/dL Normal 0-40 The [facility] Comment on above: Performed By: #### 4 1000, 45467, 48604, 57510, 46649, 20794 ####[facility]3000 [facility].[address] MAGNESIUM BLOODon 05-27-2017 Magnesium mass conc 2.1 mg/dL Normal 1.9-2.7 The [facility] Comment on above: Performed By: #### 4 1000, 36632, 41884, 33427, 72192, 29597 ####[facility]3000 [facility].[address] PHOSPHORUS BLOODon 8 Phosphate mass conc 3.5 mg/dL Normal 2.5-5.0 The [facility] Comment on above: Performed By: #### 4 1000, 59218, 72636, 28970, 30115, 36252 ####[facility]3000 [facility].[address] TACROLIMUSon 05-27-2017 Tacrolimus mass conc (Bld) 4.4 ng/mL Low 5.0-20.0 The [facility] Comment on above: Result Comment: The [employer] Tacrolimus assay is a delayed one-step immunoassayfor the quantitative determination of tacrolimus in human whole bloodusing the chemiluminescent microparticle immunoassay (CMIA) technologywith flexible assay protocols, referred to as Chemiflex. Performed By: #### 4 1000, 86490, 98764, 39291, 03056, 59136 ####[facility]3000 [facility].[address] URIC ACID BLOODon 05-27-2017 Urate mass conc 4.6 mg/dL Normal 2.3-6.6 The [facility] Comment on above: Performed By: #### 4 1000, 08511, 86826, 68577, 34970, 22293 ####[facility]3000 [facility].[address] CBC W/DIFFon 04-29-2017 ABS BASOPHILS 0.0 10*3/uL Normal 0.0-0.2 The [facility] Comment on above: Performed By: #### 4 1000, 39463, 02452, 34771, 63833, 43754 ####[facility]3000 [facility].[address] ABS IMM GRANS 0.0 10*3/uL Normal 0.0-0.2 The [facility] Comment on above: Performed By: #### 4 1000, 31795, 58275, 62445, 97819, 47664 ####[facility]3000 [facility].[address] ABS NEUTROPHILS 4.6 10*3/uL Normal 1.6-7.6 The [facility] Comment on above: Performed By: #### 4 1000, 64463, 21500, 66561, 78763, 26156 ####[facility]3000 [facility].[address] Basophils Auto #/vol (Bld) 0.3 % Normal 0.0-1.0 The [facility] Comment on above: Performed By: #### 4 1000, 03839, 87164, 17653, 49265, 31264 ####[facility]3000 [facility].[address] Eosinophils Auto #/vol (Bld) 0.1 10*3/uL Normal 0.0-0.5 The [facility] Comment on above: Performed By: #### 4 1000, 52200, 26103, 71639, 01978, 32758 ####[facility] Eosinophils/100 WBC Auto (Bld) 1.7 % Normal 0.0-6.0 The [facility] Comment on above: Performed By: #### 4 1000, 09301, 90216, 44921, 54885, 73526 ####[facility] Erythrocyte distribution width Auto Ratio (RBC) 13.7 % Normal 11.5-15.0 The [facility] Comment on above: Performed By: #### 4 1000, 95349, 20173, 93661, 59712, 49845 ####[facility] Hematocrit Auto Volume Fraction (Bld) 45.0 % Normal 36.0-45.0 The [facility] Comment on above: Performed By: #### 4 1000, 08187, 03043, 18991, 91590, 56285 ####[facility] Hemoglobin mass conc (Bld) 14.9 g/dL Normal 12.0-15.0 The [facility] Comment on above: Performed By: #### 4 1000, 34083, 21518, 78037, 54085, 44989 ####[facility] IMMATURE GRANS 0.3 % Normal 0.0-1.0 The [facility] Comment on above: Performed By: #### 4 1000, 14908, 79655, 79965, 79824, 36930 ####[facility] Lymphocytes Auto #/vol (Bld) 0.9 10*3/uL Low 1.2-4.0 The [facility] Comment on above: Performed By: #### 4 1000, 23595, 83871, 25642, 19537, 72558 ####[place] [id number] [facility].[address] Lymphocytes/100 WBC Auto (Bld) 14.2 % Low 20.0-45.0 The [facility] Comment on above: Performed By: #### 4 1000, 91950, 05650, 10511, 82558, 36664 ####[facility] MCH Auto Entitic mass (RBC) 29.4 pg Normal 27.0-33.0 The [facility] Comment on above: Performed By: #### 4 1000, 50086, 21123, 79022, 83515, 30066 ####[facility]3000 [facility].[address] MCHC Auto mass conc (RBC) 33.1 g/dL Normal 32.0-35.0 The [facility] Comment on above: Performed By: #### 4 1000, 48803, 77837, 00366, 56826, 36647 ####[place] [address] [facility].[address] MCV Auto Entitic volume (RBC) 88.8 fL Normal 82.0-98.0 The [facility] Comment on above: Performed By: #### 4 1000, 50499, 55801, 32284, 59835, 44390 ####[facility] Monocytes Auto #/vol (Bld) 0.8 10*3/uL Normal 0.1-1.0 The [facility] Comment on above: Performed By: #### 4 1000, 23728, 30286, 71231, 01265, 66792 ####[facility] [place] [address], [facility] MONOS 12.2 % High 5.0-12.0 The [facility] Comment on above: Performed By: #### 4 1000, 43938, 30672, 50117, 85255, 39878 ####[facility] [place] [address], [facility] Neutrophils/100 WBC Auto (Bld) 71.3 % Normal 40.0-72.0 The [facility] Comment on above: Performed By: #### 4 1000, 90435, 63612, 40100, 50053, 93939 ####[facility]3000 [facility] Nucleated RBC/100 WBC Ratio (Bld) 0 % Normal 0-0 The [facility] Comment on above: Performed By: #### 4 1000, 47190, 00594, 79550, 69858, 19414 ####[facility]3000 [facility].[address] PLAT CNT 215 10*3/uL Normal 150-400 The [facility] Comment on above: Performed By: #### 4 1000, 53847, 02069, 16498, 61056, 74627 ####[facility]3000 [facility].[address] RBC Auto #/vol (Bld) 5.07 10*6/uL High 3.80-5.00 Th e [facility] Comment on above: Performed By: #### 4 1000, 60131, 42629, 76912, 66564, 99158 ####[facility] [place] [address], [facility] WBC Auto #/vol (Bld) 6.5 10*3/uL Normal 4.0-10.6 The [facility] Comment on above: Performed By: #### 4 1000, 30299, 25780, 21419, 85262, 12064 ####[facility] COMP METABOLIC PANELon 04-29 Albumin mass conc 4.4 g/dL Normal 3.5-5.7 The [facility] Comment on above: Performed By: #### 4 1000, 50853, 95279, 86301, 72255, 03211 ####[facility] ALKALINE PHOSPH 114 IU/L High 34-104 The [facility] Comment on above: Performed By: #### 4 1000, 33149, 45385, 18714, 72500, 81664 ####[facility] ALT enzyme act/vol 15 U/L Normal 7-52 The [facility] Comment on above: Performed By: #### 4 1000, 50486, 26113, 29567, 30691, 07942 ####[facility] AST enzyme act/vol 19 U/L Normal 13-39 The [facility] Comment on above: Performed By: #### 4 1000, 18322, 25345, 18011, 26357, 37275 ####[facility] [place] [address], [facility] Bilirubin mass conc 0.7 mg/dL Normal 0.3-1.0 The [facility] Comment on above: Performed By: #### 4 1000, 41218, 96773, 25673, 52124, 49874 ####[facility] Calcium mass conc 9.6 mg/dL Normal 8.6-10.3 The [facility] Comment on above: Performed By: #### 4 1000, 52117, 29053, 93159, 25357, 97321 ####[facility] [place] [address], [place] Chloride molar conc 103 mmol/L Normal 98-107 [facility] Comment on above: Performed By: #### 4 1000, 92476, 18888, 54380, 84435, 80835 ####[facility] [place] [address], [place] CO2 molar conc 29 mmol/L Normal 21-31 [facility] Comment on above: Performed By: #### 4 1000, 97459, 10891, 83838, 77923, 88666 ####[facility] [place] [address], [facility] Creatinine mass conc 0.79 mg/dL Normal 0.60-1.20 [facility] Comment on above: Performed By: #### 4 1000, 82356, 68646, 13502, 22934, 28851 ####[facility] [place] [address], [place] GFR/1.73 sq M predicted among blacks MDRD vol rate/area (S/P/Bld) mL/min/{1.73_m2} Normal >60 The [facility] Comment on above: Performed By: #### 4 1000, 18474, 22582, 79965, 91616, 04497 ####[facility] [place] [address], [place] GFR/1.73 sq M predicted among non-blacks MDRD vol rate/area (S/P/Bld) mL/min/{1.73_m2} Normal >60 The [facility] Comment on above: Performed By: #### 4 1000, 38705, 41735, 10244, 16157, 23680 ####[facility] [place] [address], [place] Glucose mass conc 90 mg/dL Normal 70-100 The [facility] Comment on above: Performed By: #### 4 1000, 18941, 77733, 25355, 55339, 70924 ####[facility] [place] [address], [facility] Potassium molar conc 3.8 mmol/L Normal 3.5-5.1 The [facility] Comment on above: Performed By: #### 4 1000, 04735, 46024, 09058, 43906, 70835 ####[facility] [place] [address], [facility] Protein mass conc 7.2 g/dL Normal 6.0-8.3 The [facility] Comment on above: Performed By: #### 4 1000, 68763, 95248, 97310, 56547, 47367 ####[facility] [place] [address], [facility] Sodium molar conc 140 mmol/L Normal 136-145 The [facility] Comment on above: Performed By: #### 4 1000, 17579, 51105, 85703, 08151, 24901 ####[facility] [place] [address], [facility] Urea nitrogen mass conc 15 mg/dL Normal 7-25 The [facility] Comment on above: Performed By: #### 4 1000, 94530, 63014, 91085, 65958, 22119 ####[facility] [place] [address], [facility] DIRECT BILIon 04-29-2017 Bilirubin.direct mass conc 0.1 mg/dL Normal 0.0-0.2 The [facility] Comment on above: Order Comment: Liver Battery conflicts with Comprehensive Metabolic Panel. Liver Battery canceled and Direct Bilirubin added. Performed By: #### 4 1000, 30032, 44859, 51273, 66553, 45656 ####[facility] [place] [address], [facility] EVEROLIMUS [id number] 8 EVEROLIMUS 5.4 ng/mL Normal [facility] Comment on above: Result Comment: [...] transplantcenter.Test developed and characteristics determined by [employer]. See Compliance Statement B: [employer]/CSPerformed by [employer],[address] [place] [id number] swh.Bindo, Leonid Antonio MD - Lab. Director LIPID PROFILEon 04-29-2017 Cholesterol in HDL mass conc 49 mg/dL Normal 23-92 The [facility] Comment on above: Result Comment: Slig ht variation in normal range could be due to gender and/or age.HDL CHOLESTEROL REFERENCE RANGE:20 years and older Cardiovascular Risk> or =60 mg/dL Mktlrlstq76 TO 59 mg/dL Low Risk<40 mg/dL High Risk Performed By: #### 4 1000, 55004, 96131, 64363, 60404, 28673 ####[facility] [place] [address], [facility] Cholesterol in LDL mass conc 52 mg/dL Normal 0-130 The [facility] Comment on above: Result Comment: LDL IS A CALCULATIONLDL IS ONLY VALID IF THE TRIG IS LESS THAN 400. Performed By: #### 4 1000, 74786, 76809, 85868, 85515, 62431 ####[facility] [place] [address], [facility] Cholesterol mass conc 122 mg/dL Normal 120-200 The [facility] Comment on above: Result Comment: CHOL ESTEROL REFERENCE RANGE:20 YEARS AND OLDER CARDIOVASCULAR RISKLess than 200 mg/dl Low Ntzd362 to 239 mg/dl Borderline Mxeq064 mg/dl and greater High Risk Performed By: #### 4 1000, 23727, 62189, 33010, 83891, 81482 ####[facility] [place] [address], [facility] Cholesterol.total/Cho lesterol in HDL mass ratio 2.5 {ratio} Normal .0-4.5 [facility] Comment on above: Performed By: #### 4 1000, 61557, 19583, 63450, 71625, 76175 ####[facility] NON-HDL CHOLESTEROL 73 mg/dL Normal The [facility] Comment on above: Performed By: #### 4 1000, 49820, 52425, 54125, 32892, 11872 ####[facility] [place] [address], [facility] Triglyceride mass conc 106 mg/dL Normal 40-149 The [facility] Comment on above: Result Comment: TRIG LYCERIDE REFERENCE RANGE:20 YEARS AND OLDER CARDIOVASCULAR RISKLESS THAN 150 mg/dl LOW [id number] TO 199 mg/dl BORDERLINE [id number] mg/dl AND GREATER HIGH RISK Performed By: #### 4 1000, 42902, 57532, 93198, 34269, 68705 ####[facility] [place] [address], [facility] VLDL CHOL 21 mg/dL Normal 0-40 The [facility] Comment on above: Performed By: #### 4 1000, [id number], 46503, 08753, 70342, 02632 ####[facility] [facility].[address] MAGNESIUM BLOODon 04-29-2017 Magnesium mass conc 2.1 mg/dL Normal 1.9-2.7 The [facility] Comment on above: Performed By: #### 4 1000, 00060, 59316, 03578, 68424, 42458 ####[facility] [facility].[address] PHOSPHORUS BLOODon 8 Phosphate mass conc 3.3 mg/dL Normal 2.5-5.0 The [facility] Comment on above: Performed By: #### 4 1000, 02149, 44603, 70767, 30339, 37176 ####[facility] [facility].[address] TACROLIMUSon 04-29-2017 Tacrolimus mass conc (Bld) 4.6 ng/mL Low 5.0-20.0 The [facility] Comment on above: Result Comment: The [employer] Tacrolimus assay is a delayed one-step immunoassayfor the quantitative determination of tacrolimus in human whole bloodusing the chemiluminescent microparticle immunoassay (CMIA) technologywith flexible assay protocols, referred to as Chemiflex. Performed By: #### 4 1000, 82693, 49625, 43201, 91140, 00460 ####[facility]3000 [facility].[address] URIC ACID BLOODon 04-29-2017 Urate mass conc 4.6 mg/dL Normal 2.3-6.6 The [facility] Comment on above: Performed By: #### 4 1000, 79035, 69751, 87904, 97565, 57787 ####[facility]3000 [facility].[address] CBC W/DIFFon 03-27-2017 Basophils Auto #/vol (Bld) 0.2 % Normal 0.0-2.0 The [facility] Comment on above: Performed By: #### 4 1000, 07776, 09818, 38945, 66277, 15181 ####[facility] [place] [address], [facility] Eosinophils/100 WBC Auto (Bld) 1.8 % Normal 0.0-5.0 The [facility] Comment on above: Performed By: #### 4 1000, 53642, 15074, 35076, 62815, 01033 ####[facility] [place] [address], [facility] Erythrocyte distribution width Auto Ratio (RBC) 13.6 % Normal 11.5-16.9 The [facility] Comment on above: Performed By: #### 4 1000, 94298, 69184, 66952, 59450, 18129 ####[facility] [place] [address], [facility] Hematocrit Auto Volume Fraction (Bld) 47.6 % Normal 36.0-48.0 The [facility] Comment on above: Performed By: #### 4 1000, 13324, 21381, 74665, 50830, 36489 ####[facility] [place] [address], [facility] Hemoglobin mass conc (Bld) 15.8 g/dL High 12.0-15.0 The [facility] Comment on above: Performed By: #### 4 1000, 69449, 01518, 20712, 49845, 52297 ####[facility] [place] [address], [facility] Lymphocytes/100 WBC Auto (Bld) 14.5 % Low 20.0-40.0 The [facility] Comment on above: Performed By: #### 4 1000, 46971, 32259, 63279, 45994, 75147 ####[facility] [place] [address], [facility] MCH Auto Entitic mass (RBC) 29.0 pg Normal 24.0-32.0 The [facility] Comment on above: Performed By: #### 4 1000, 43146, 78788, 43280, 76029, 63859 ####[facility] MCHC Auto mass conc (RBC) 33.3 g/dL Normal 32.0-36.0 The [facility] Comment on above: Performed By: #### 4 1000, 13639, 37741, 35088, 25086, 44479 ####[facility] MCV Auto Entitic volume (RBC) 87.4 fL Normal 80.0-100.0 [facility] Comment on above: Performed By: #### 4 1000, 00299, 45958, 47179, 76418, 02161 ####[facility] METHOD Normal RBC Morphology Normal [facility] Comment on above: Performed By: #### 4 1000, 79643, 34720, 69849, 36252, 24514 ####[facility] MONOS 9.6 % High 2-8 The [facility] Comment on above: Performed By: #### 4 1000, 82659, 73135, 10210, 94577, 03536 ####[facility] Neutrophils/100 WBC Auto (Bld) 73.9 % High 50-70 The [facility] Comment on above: Performed By: #### 4 1000, 82590, 16791, 10714, 13324, 07464 ####[facility] PLAT CNT 228 Thou/mm3 Normal 100-400 The [facility] Comment on above: Performed By: #### 4 1000, 39861, 51488, 23745, 44040, 08080 ####[facility] [place] [address], [facility] RBC Auto #/vol (Bld) 5.45 mill/mm3 Normal 3.50-5.50 T he [facility] Comment on above: Performed By: #### 4 1000, 27930, 13837, 23484, 84942, 39242 ####[facility] [place] [address], [facility] WBC Auto #/vol (Bld) 6.5 Thou/mm3 Normal 4.0-10.0 Th e [facility] Comment on above: Performed By: #### 4 1000, 29586, 72105, 10809, 65466, 80513 ####[facility] COMP METABOLIC PANELon 03-27 Albumin mass conc 4.7 g/dL Normal 3.5-5.7 The [facility] Comment on above: Performed By: #### 4 1000, 97863, 33054, 88340, 47722, 13918 ####[facility] [place] [address], [facility] ALKALINE PHOSPH 99 IU/L Normal 34-104 [facility] Comment on above: Performed By: #### 4 1000, 29410, 32893, 58695, 97751, 25697 ####[facility] [place] [address], [facility] ALT enzyme act/vol 19 U/L Normal 7-52 [facility] Comment on above: Performed By: #### 4 1000, 40932, 72265, 10392, 51746, 58995 ####[facility] [place] [address], [facility] AST enzyme act/vol 21 U/L Normal 13-39 [facility] Comment on above: Performed By: #### 4 1000, 43917, 02185, 21438, 66110, 56688 ####[facility] [place] [address], [facility] Bilirubin mass conc 0.6 mg/dL Normal 0.3-1.0 The [facility] Comment on above: Performed By: #### 4 1000, 65437, 61109, 07942, 03387, 75328 ####[facility] [place] [address], [place] Calcium mass conc 10.2 mg/dL Normal 8.6-10.3 [facility] Comment on above: Performed By: #### 4 1000, 70342, 59514, 98313, 65781, 61148 ####[facility] [place] [address], [place] Chloride molar conc 104 mmol/L Normal 98-107 The [facility] Comment on above: Performed By: #### 4 1000, 93299, 94761, 40705, 82665, 03528 ####[facility] [place] [address], [place] CO2 molar conc 28 mmol/L Normal 21-31 The [facility] Comment on above: Performed By: #### 4 1000, 67093, 39283, 67239, 05956, 77258 ####[facility] [place] [address], [place] Creatinine mass conc 0.78 mg/dL Normal 0.60-1.20 The [facility] Comment on above: Performed By: #### 4 1000, 02017, 09928, 56097, 38433, 35879 ####[facility] [place] [address], [place] GFR/1.73 sq M predicted among blacks MDRD vol rate/area (S/P/Bld) mL/min/{1.73_m2} Normal >60 The [facility] Comment on above: Performed By: #### 4 1000, 02413, 56028, 54179, 94184, 54890 ####[facility] [place] [address], [place] GFR/1.73 sq M predicted among non-blacks MDRD vol rate/area (S/P/Bld) mL/min/{1.73_m2} Normal >60 The [facility] Comment on above: Performed By: #### 4 1000, 72918, 68175, 88468, 51105, 42186 ####[facility] [place] [address], [facility] Glucose mass conc 87 mg/dL Normal 70-100 The [facility] Comment on above: Performed By: #### 4 1000, 11586, 69875, 26701, 09851, 75899 ####[facility] [place] [address], [place] Potassium molar conc 4.1 mmol/L Normal 3.5-5.1 The [facility] Comment on above: Performed By: #### 4 1000, 19553, 27840, 43727, 96208, 20232 ####[facility] [place] [address], [place] Protein mass conc 7.8 g/dL Normal 6.0-8.3 The [facility] Comment on above: Performed By: #### 4 1000, 45845, 10831, 16288, 04804, 14762 ####[facility] [place] [address], [place] Sodium molar conc 139 mmol/L Normal 136-145 The [facility] Comment on above: Performed By: #### 4 1000, 14067, 81931, 07660, 97954, 71502 ####[facility] [place] [address], [facility] Urea nitrogen mass conc 19 mg/dL Normal 7-25 The [facility] Comment on above: Performed By: #### 4 1000, 60788, 60989, 52753, 47868, 29779 ####[facility] DIRECT BILIon 03-27-2017 Bilirubin.direct mass conc 0.1 mg/dL Normal 0.0-0.2 The [facility] Comment on above: Performed By: #### 4 1000, 76850, 97646, 54633, 40782, 47684 ####[facility] EVEROLIMUS 67842zy 7 EVEROLIMUS 5.3 ng/mL Normal [facility] Comment on above: Result Comment: [...] transplantcenter.Test developed and characteristics determined by [employer]. See Compliance Statement B: [employer]/CSPerformed by [employer],[address] [place] [address] orr.Bindo, Leonid Antonio MD - Lab. Director LIPID PROFILEon 03-27-2017 Cholesterol in HDL mass conc 50 mg/dL Normal 23-92 The [facility] Comment on above: Result Comment: Slig ht variation in normal range could be due to gender and/or age.HDL CHOLESTEROL REFERENCE RANGE:20 years and older Cardiovascular Risk> or =60 mg/dL Sbiqbopsc79 TO 59 mg/dL Low Risk<40 mg/dL High Risk Performed By: #### 4 1000, 69021, 20643, 24365, 83338, 31019 ####[facility] [place] [address], [facility] Cholesterol in LDL mass conc 66 mg/dL Normal 0-130 The [facility] Comment on above: Result Comment: LDL IS A CALCULATIONLDL IS ONLY VALID IF THE TRIG IS LESS THAN 400. Performed By: #### 4 1000, 74979, 57020, 99189, 67285, 67966 ####[facility] [place] [address], [facility] Cholesterol mass conc 147 mg/dL Normal 120-200 The [facility] Comment on above: Result Comment: CHOL ESTEROL REFERENCE RANGE:20 YEARS AND OLDER CARDIOVASCULAR RISKLess than 200 mg/dl Low Dwmd881 to 239 mg/dl Borderline Umxp503 mg/dl and greater High Risk Performed By: #### 4 1000, 51721, 94758, 47553, 57005, 11323 ####[facility] [place] [address], [facility] Cholesterol.total/Cho lesterol in HDL mass ratio 2.9 {ratio} Normal .0-4.5 The [facility] Comment on above: Performed By: #### 4 1000, 87461, 51243, 27865, 05311, 33838 ####[facility] [place] [address], [facility] NON-HDL CHOLESTEROL 97 mg/dL Normal The [facility] Comment on above: Performed By: #### 4 1000, 08692, 24944, 96334, 45917, 78099 ####[facility]3000 [facility].[address] Triglyceride mass conc 157 mg/dL High 40-149 The [facility] Comment on above: Result Comment: TRIG LYCERIDE REFERENCE RANGE:20 YEARS AND OLDER CARDIOVASCULAR RISKLESS THAN 150 mg/dl LOW [id number] TO 199 mg/dl BORDERLINE VIWW695 mg/dl AND GREATER HIGH RISK Performed By: #### 4 1000, 48399, 86296, 64454, 70470, 31944 ####[facility]3000 [facility].[address] VLDL CHOL 31 mg/dL Normal 0-40 The [facility] Comment on above: Performed By: #### 4 1000, 47004, 86089, 33920, 18209, 28840 ####[facility]3000 [facility].[address] MAGNESIUM BLOODon 03-27-2017 Magnesium mass conc 1.9 mg/dL Normal 1.9-2.7 The [facility] Comment on above: Performed By: #### 4 1000, 03261, 88166, 19758, 78918, 05900 ####[facility]3000 [facility].[address] PHOSPHORUS BLOODon 7 Phosphate mass conc 3.4 mg/dL Normal 2.5-5.0 The [facility] Comment on above: Performed By: #### 4 1000, 56545, 34897, 53265, 51223, 45360 ####[facility]3000 [facility].[address] TACROLIMUSon 03-27-2017 Tacrolimus mass conc (Bld) 3.7 ng/mL Low 5.0-20.0 The [facility] Comment on above: Result Comment: The [employer] Tacrolimus assay is a delayed one-step immunoassayfor the quantitative determination of tacrolimus in human whole bloodusing the chemiluminescent microparticle immunoassay (CMIA) technologywith flexible assay protocols, referred to as Chemiflex. Performed By: #### 4 1000, 43468, 32138, 13073, 42542, 97690 ####[facility]3000 [facility].[address] URIC ACID BLOODon 03-27-2017 Urate mass conc 4.1 mg/dL Normal 2.3-6.6 The [facility] Comment on above: Performed By: #### 4 1000, 43477, 24795, 08318, 21787, 98482 ####[facility]3000 [facility].[address] BK VIRUS QUANTITATION PCR BL OODon 02-26-2017 BKV QUANT PCR Not detected Normal The [facility] Comment on above: Result Comment: Meth od: BK virus was measured by quantitative polymerase chain reactionusing a TaqMan probe targeting the polyomavirus BK TOYS INSPECTOR-1 gene.The lower limit of quantitation of the assay is 500 copies of BK genomeper milliliter of plasma or urine, and any detectable BK DNA below thatlevel is reported as: Detected, <500 copies/ml. Serial BK virusmeasurement can be used to monitor disease activity. (Reference:Kelsie vaughanl. J CLIN MICRO 2004; 42:2679-9819).This test was developed and its performance characteristics determinedby the [facility]. It has not been approvedby the US Food and Drug Administration. However, such approval is notrequired for clinical implementation, and test results have been shownto be clinically useful. This laboratory is CAP accredited and CLIAcertified to perform high complexity testing. Performed By: #### 4 1000, 80959, 44851, 56864, 47412, 97159 ####[facility]3000 [facility].[address] LOG 10 COPIES Not detected Normal The [facility] Comment on above: Performed By: #### 4 1000, 16872, 36342, 71028, 19875, 68707 ####[facility]3000 [facility] [place] [address], [facility] CBC W/DIFFon 02-26-2017 Basophils Auto #/vol (Bld) 0.3 % Normal 0.0-2.0 The [facility] Comment on above: Performed By: #### 5 0103 ####[facility] [place] [address], [facility] Eosinophils/100 WBC Auto (Bld) 2.2 % Normal 0.0-5.0 The [facility] Comment on above: Performed By: #### 5 0103 ####[facility] [place] [address], [facility] Erythrocyte distribution width Auto Ratio (RBC) 13.8 % Normal 11.5-16.9 The [facility] Comment on above: Performed By: #### 5 0103 ####[facility] Hematocrit Auto Volume Fraction (Bld) 44.9 % Normal 36.0-48.0 The [facility] Comment on above: Performed By: #### 5 0103 ####[facility]3000 [facility] [place] [address], [facility] Hemoglobin mass conc (Bld) 15.0 g/dL Normal 12.0-15.0 The [facility] Comment on above: Performed By: #### 5 3 ####[facility]3000 [facility] [place] [address], [facility] Lymphocytes/100 WBC Auto (Bld) 18.9 % Low 20.0-40.0 The [facility] Comment on above: Performed By: #### 5 3 ####[facility] [place] [address], [facility] MCH Auto Entitic mass (RBC) 28.9 pg Normal 24.0-32.0 The [facility] Comment on above: Performed By: #### 5 3 ####[facility] [id number], [facility] MCHC Auto mass conc (RBC) 33.4 g/dL Normal 32.0-36.0 The [facility] Comment on above: Performed By: #### 5 102 ####[facility]3000 [facility].[address] MCV Auto Entitic volume (RBC) 86.6 fL Normal 80.0-100.0 The [facility] Comment on above: Performed By: #### 3 ####[facility]3000 [facility].[address] METHOD Normal RBC Morphology Normal The [facility] Comment on above: Performed By: #### 102 ####[facility]3000 [facility].[address] MONOS 11.7 % High 2-8 The [facility] Comment on above: Performed By: #### 102 ####[facility]3000 [facility].[address] Neutrophils/100 WBC Auto (Bld) 66.9 % Normal 50-70 The [facility] Comment on above: Performed By: #### 102 ####[facility]3000 [facility].[address] PLAT CNT 230 Thou/mm3 Normal 100-400 The [facility] Comment on above: Performed By: #### 102 ####[facility]3000 [facility].[address] RBC Auto #/vol (Bld) 5.18 mill/mm3 Normal 3.50-5.50 T he [facility] Comment on above: Performed By: #### 3 ####[facility]3000 [facility].[address] WBC Auto #/vol (Bld) 5.8 Thou/mm3 Normal 4.0-10.0 Th e [facility] Comment on above: Performed By: #### 102 ####[facility] COMP METABOLIC PANELon 02-26 Albumin mass conc 4.7 g/dL Normal 3.5-5.7 The [facility] Comment on above: Performed By: #### 4 1000, 63265, 92751, 24412, 68429, 60784 ####[facility] [place] [address], [facility] ALKALINE PHOSPH 115 IU/L High 34-104 The [facility] Comment on above: Performed By: #### 4 1000, 02889, 66972, 76723, 27120, 10288 ####[facility] ALT enzyme act/vol 18 U/L Normal 7-52 The [facility] Comment on above: Performed By: #### 4 1000, 76737, 93951, 27353, 07583, 79969 ####[facility] AST enzyme act/vol 22 U/L Normal 13-39 The [facility] Comment on above: Performed By: #### 4 1000, 67090, 60379, 05264, 17518, 15273 ####[facility] [place] [address], [facility] Bilirubin mass conc 0.6 mg/dL Normal 0.3-1.0 The [facility] Comment on above: Performed By: #### 4 1000, 98690, 23418, 00783, 16155, 26321 ####[facility] [place] [address], [facility] Calcium mass conc 9.8 mg/dL Normal 8.6-10.3 The [facility] Comment on above: Performed By: #### 4 1000, 79093, 91789, 50173, 27697, 51026 ####[facility] [place] [address], [place] Chloride molar conc 103 mmol/L Normal 98-107 [facility] Comment on above: Performed By: #### 4 1000, 48142, 38688, 17328, 83522, 31567 ####[facility] [place] [address], [place] CO2 molar conc 29 mmol/L Normal 21-31 [facility] Comment on above: Performed By: #### 4 1000, 18431, 69037, 43096, 14682, 97594 ####[facility] [place] [address], [facility] Creatinine mass conc 0.78 mg/dL Normal 0.60-1.20 [facility] Comment on above: Performed By: #### 4 1000, 50733, 55300, 87978, 38890, 43821 ####[facility] [place] [address], [place] GFR/1.73 sq M predicted among blacks MDRD vol rate/area (S/P/Bld) mL/min/{1.73_m2} Normal >60 [facility] Comment on above: Performed By: #### 4 1000, 33405, 94383, 55512, 35930, 01862 ####[facility] [place] [address], [place] GFR/1.73 sq M predicted among non-blacks MDRD vol rate/area (S/P/Bld) mL/min/{1.73_m2} Normal >60 [facility] Comment on above: Performed By: #### 4 1000, 01938, 36355, 40506, 20833, 31372 ####[facility] [place] [address], [place] Glucose mass conc 94 mg/dL Normal 70-100 [facility] Comment on above: Performed By: #### 4 1000, 77235, 67151, 51378, 69784, 62782 ####[facility] Potassium molar conc 3.8 mmol/L Normal 3.5-5.1 The [facility] Comment on above: Performed By: #### 4 1000, 14113, 91389, 92864, 72783, 19051 ####[facility] Protein mass conc 7.4 g/dL Normal 6.0-8.3 The [facility] Comment on above: Performed By: #### 4 1000, 89766, 14542, 50980, 06677, 45247 ####[facility] Sodium molar conc 136 mmol/L Normal 136-145 The [facility] Comment on above: Performed By: #### 4 1000, 38256, 59560, 69503, 03340, 58725 ####[facility] Urea nitrogen mass conc 19 mg/dL Normal 7-25 The [facility] Comment on above: Performed By: #### 4 1000, 78322, 82232, 91292, 42358, 49129 ####[facility] DIRECT BILIon 02-26-2017 Bilirubin.direct mass conc 0.1 mg/dL Normal 0.0-0.2 The [facility] Comment on above: Performed By: #### 4 1000, 36175, 42438, 94919, 60007, 77648 ####[facility] EVEROLIMUS 33605kk 7 EVEROLIMUS 5.9 ng/mL Normal The [facility] Comment on above: Result Comment: Ther [...] transplantcenter.Test developed and characteristics determined by [employer]. See Compliance Statement B: [employer]/CSPerformed by [employer],[address] [place] [id number] zdi.Bindo, Leonid Antonio MD - Lab. Director HEMOGLOBIN A1Con 02-26-2017 Glucose mass conc 108 mg/dL Normal 70-126 [facility] Comment on above: Performed By: #### 4 4664, 91112 ####[facility] Hemoglobin A1c/Hemoglobin.total mass fraction (Bld) 5.4 % Normal 4.0-6.0 The [facility] Comment on above: Performed By: #### 4 8747, 72149 ####[facility] LIPID PROFILEon 02-26-2017 Cholesterol in HDL mass conc 54 mg/dL Normal 23-92 [facility] Comment on above: Result Comment: Slig ht variation in normal range could be due to gender and/or age.HDL CHOLESTEROL REFERENCE RANGE:20 years and older Cardiovascular Risk> or =60 mg/dL Pmemyebsj79 TO 59 mg/dL Low Risk<40 mg/dL High Risk Performed By: #### 4 1000, 37496, 68209, 44571, 96822, 08335 ####[facility] [place] [address], [facility] Cholesterol in LDL mass conc 70 mg/dL Normal 0-130 [facility] Comment on above: Result Comment: LDL IS A CALCULATIONLDL IS ONLY VALID IF THE TRIG IS LESS THAN 400. Performed By: #### 4 1000, 51672, 21857, 94738, 04380, 35782 ####[facility]3000 [facility] [place] [address], [facility] Cholesterol mass conc 144 mg/dL Normal 120-200 [facility] Comment on above: Result Comment: CHOL ESTEROL REFERENCE RANGE:20 YEARS AND OLDER CARDIOVASCULAR RISKLess than 200 mg/dl Low Ekro942 to 239 mg/dl Borderline Yywr918 mg/dl and greater High Risk Performed By: #### 4 1000, 59309, 09283, 40481, 79301, 35396 ####[facility] [facility] [place] [address], [facility] Cholesterol.total/Cho lesterol in HDL mass ratio 2.7 {ratio} Normal .0-4.5 [facility] Comment on above: Performed By: #### 4 1000, 48231, 66613, 25620, 07376, 76869 ####[facility] [place] [address], [facility] NON-HDL CHOLESTEROL 90 mg/dL Normal The [facility] Comment on above: Performed By: #### 4 1000, 47282, 28178, 67354, 30480, 03196 ####[facility] [place] [address], [facility] Triglyceride mass conc 101 mg/dL Normal 40-149 [facility] Comment on above: Result Comment: TRIG LYCERIDE REFERENCE RANGE:20 YEARS AND OLDER CARDIOVASCULAR RISKLESS THAN 150 mg/dl LOW [id number] TO 199 mg/dl BORDERLINE [id number] mg/dl AND GREATER HIGH RISK Performed By: #### 4 1000, 66619, 92554, 25400, 81067, 02106 ####[facility]3000 [facility].[address] VLDL CHOL 20 mg/dL Normal 0-40 [facility] Comment on above: Performed By: #### 4 1000, 34635, 54292, 25250, 21670, 57116 ####[facility]3000 [facility].[address] MAGNESIUM BLOODon 02-26-2017 Magnesium mass conc 1.9 mg/dL Normal 1.9-2.7 The [facility] Comment on above: Performed By: #### 4 1000, 40726, 30550, 52177, 88807, 35914 ####[facility]3000 [facility].[address] PHOSPHORUS BLOODon 7 Phosphate mass conc 4.1 mg/dL Normal 2.5-5.0 The [facility] Comment on above: Performed By: #### 4 1000, 72332, 27004, 14763, 29921, 32549 ####[facility]3000 [facility].[address] TACROLIMUSon 02-26-2017 Tacrolimus mass conc (Bld) 4.2 ng/mL Low 5.0-20.0 The [facility] Comment on above: Result Comment: The [employer] Tacrolimus assay is a delayed one-step immunoassayfor the quantitative determination of tacrolimus in human whole bloodusing the chemiluminescent microparticle immunoassay (CMIA) technologywith flexible assay protocols, referred to as Chemiflex. Performed By: #### 4 6447, 46971 ####[facility] URIC ACID BLOODon 02-26-2017 Urate mass conc 4.3 mg/dL Normal 2.3-6.6 The [facility] Comment on above: Performed By: #### 4 1000, 20290, 13056, 30485, 76860, 60675 ####[facility] Vital Signs Date Time Vital Sign Value Performing Clinician Facility 06-01-2024 13:05-0500 Body height 152.4 cm Ester Hemmer PA Work Phone: [facility] 06-01-2024 13:05-0500 Body mass index (BMI) [Ratio] 24.65 kg/m2 Ester Hemmer PA Work Phone: [facility] 06-01-2024 13:05-0500 Body temperature 98.29 [degF] Ester Hemmer PA Work Phone: [facility] 06-01-2024 13:05-0500 Body weight 57.24 kg Ester Hemmer PA Work Phone: [facility] 06-01-2024 13:05-0500 Diastolic blood pressure 74 mm[Hg] Ester Hemmer PA Work Phone: [facility] 06-01-2024 13:05-0500 Heart rate 69 /min Ester Hemmer PA Work Phone: [facility] 06-01-2024 13:05-0500 Respiratory rate 16 /min Ester Hemmer PA Work Phone: [facility] 06-01-2024 13:05-0500 SaO2% (BldA) [Mass fraction] 95 % Ester Hemmer PA Work Phone: [facility] 06-01-2024 13:05-0500 Systolic blood pressure 112 mm[Hg] Ester Hemmer PA Work Phone: [facility] 08-30-2023 09:22-0400 Body height 182.88 cm [facility] 08-30-2023 09:22-0400 Body mass index (BMI) [Ratio] 17.9 kg/m2 [facility] 08-30-2023 09:22-0400 Body temperature 99.8 [degF] [facility] 08-30-2023 09:22-0400 Body weight 59.87 kg [facility] 08-30-2023 09:22-0400 Diastolic blood pressure 73 mm[Hg] [facility] 08-30-2023 09:22-0400 Heart rate 67 /min [facility] 08-30-2023 09:22-0400 SaO2% (BldA) [Mass fraction] 95 % [facility] 08-30-2023 09:22-0400 Systolic blood pressure 111 mm[Hg] [facility] 03-27-2023 11:30-0500 Body height 152.4 cm Cathy Bella Other [facility] [facility] Other 03-27-2023 11:30-0500 Body mass index (BMI) [Ratio] 25.39 kg/m2 Cathy Bella Other [facility] Other 03-27-2023 11:30-0500 Body temperature 97.5 [degF] Cathy Bella Other [facility] Other 03-27-2023 11:30-0500 Body weight 58.97 kg Cathy Bella Other [facility] Other 03-27-2023 11:30-0500 Respiratory rate 18 /min Cathy Bella Other [facility] Other 03-27-2023 11:30-0500 SaO2% (BldA) [Mass fraction] 96 % Cathy Bella Other [facility] Other 09-21-2022 09:00-0400 Body height 152.4 cm Martha Guevara Other [facility] Other 09-21-2022 09:00-0400 Body mass index (BMI) [Ratio] 22.46 kg/m2 Martha Guevara Other [facility] Other 09-21-2022 09:00-0400 Body temperature 97.6 [degF] Martha Guevara Other [facility] Other 09-21-2022 09:00-0400 Body weight 52.16 kg Martha Guevara Other [facility] Other 09-21-2022 09:00-0400 Diastolic blood pressure 70 mm[Hg] Martha Guevara Other [facility] Other 09-21-2022 09:00-0400 Respiratory rate 18 /min Martha Guevara Other [facility] Other 09-21-2022 09:00-0400 SaO2% (BldA) [Mass fraction] 96 % Martha Guevara Other [facility] Other 09-21-2022 09:00-0400 Systolic blood pressure 107 mm[Hg] Martha Guevara Other [facility] Other 01-12-2022 13:55-0400 Body height 152.4 cm Cathy Bella Other [facility] Other 01-12-2022 13:55-0400 Body mass index (BMI) [Ratio] 19.53 kg/m2 Cathy Bella Other [facility] Other 01-12-2022 13:55-0400 Body temperature 96.9 [degF] Cathy Bella Other [facility] Other 01-12-2022 13:55-0400 Body weight 45.36 kg Cathy Bella Other [facility] Other 01-12-2022 13:55-0400 Respiratory rate 18 /min Cathy Shayne Other [facility] Other 01-12-2022 13:55-0400 SaO2% (BldA) [Mass fraction] 97 % Cathy Bella Other [facility] Other 12-28-2021 10:20-0400 Body height 152.4 cm Martha Guevara Other [facility] Other 12-28-2021 10:20-0400 Body mass index (BMI) [Ratio] 21.48 kg/m2 Martha Smithmond Other [facility] Other 12-28-2021 10:20-0400 Body temperature 98 [degF] Martha Smithmond Other [facility] Other 12-28-2021 10:20-0400 Body weight 49.9 kg Martha Guevara Other [facility] Other 12-28-2021 10:20-0400 Respiratory rate 18 /min Martha Smithmond Other [facility] Other 12-28-2021 10:20-0400 SaO2% (BldA) [Mass fraction] 97 % Martha Paola Other [facility] Other 12-25-2021 10:05-0400 Body height 152.4 cm Cathy Bella Other [facility] Other 12-25-2021 10:05-0400 Body mass index (BMI) [Ratio] 21.48 kg/m2 Cathy Bella Other [facility] Other 12-25-2021 10:05-0400 Body temperature 96 [degF] Cathy Bella Other [facility] Other 12-25-2021 10:05-0400 Body weight 49.9 kg Cathy Bella Other [facility] Other 12-25-2021 10:05-0400 Respiratory rate 18 /min Cathy Bella Other [facility] Other 12-25-2021 10:05-0400 SaO2% (BldA) [Mass fraction] 97 % Cathy Bella Other [facility] Other 10-27-2021 12:35-0400 Body height 152.4 cm Cathy Bella Other [facility] Other 10-27-2021 12:35-0400 Body mass index (BMI) [Ratio] 22.85 kg/m2 Cathy Bella Other [facility] Other 10-27-2021 12:35-0400 Body weight 53.07 kg Cathy Bella Other [facility] Other 10-27-2021 12:35-0400 Diastolic blood pressure 87 mm[Hg] Cathy Bella Other [facility] Other 10-27-2021 12:35-0400 SaO2% (BldA) [Mass fraction] 98 % Cathy Bella Other [facility] Other 10-27-2021 12:35-0400 Systolic blood pressure 130 mm[Hg] Cathy Bella Other [facility] Other 08-14-2021 10:40-0400 Body height 152.4 cm Martha Guevara Other [facility] Other 08-14-2021 10:40-0400 Body mass index (BMI) [Ratio] 22.46 kg/m2 Martha Guevara Other [facility] Other 08-14-2021 10:40-0400 Body temperature 96.7 [degF] Martha Guevara Other [facility] Other 08-14-2021 10:40-0400 Body weight 52.16 kg Martha Guevara Other [facility] Other 08-14-2021 10:40-0400 Diastolic blood pressure 68 mm[Hg] Martha Guevara Other [facility] Other 08-14-2021 10:40-0400 Respiratory rate 20 /min Martha Guevara Other [facility] Other 08-14-2021 10:40-0400 SaO2% (BldA) [Mass fraction] 98 % Martha Guevara Other [facility] Other 08-14-2021 10:40-0400 Systolic blood pressure 144 mm[Hg] Martha Guevara Other [facility] Other Encounters Encounter Date Encounter Type Care Provider Facility Start: 12-20-2024 End: 12-20-2024 Clinisync Result Encounter Generic External Data Provider [facility] External Department Unsolicited Start: 12-20-2024 End: 12-20-2024 Clinisync Result Encounter Generic External Data Provider [...] [facility] Start: 09-29-2024 End: 09-29-2024 [facility] Start: 09-22-2024 End: 09-22-2024 Clinisync Result Encounter [...] pansinusitis; Acute bronchitis, unspecified organism; Primary hypertension ([facility]/HCC); PKD (polycystic kidney disease); Joint contracture of foot, unspecified laterality; Immunosuppression ([facility]); Abnormal complete blood count; Current moderate episode of major depressive disorder without prior episode (HCC) ([facility]); Elevated alkaline phosphatase level; Estrogen deficiency; Generalized anxiety disorder ([facility]); Hypercholesteremia ([facility]); Hypomagnesemia; Renal transplant recipient ([facility]) Start: 06-01-2024 End: 06-01-2024 ambulatory ESTER PADILLA [...] Department Unsolicited Start: 04-01-2024 End: 04-01-2024 ambulatory [facility] Start: 03-19-2024 End: 03-19-2024 Clinisync Result [...] Start: 08-30-2023 End: 08-30-2023 Patient encounter procedure [facility] [place] Work Phone: Start: 03-27-2023 End: 03-27-2023 ambulatory Cathy Bella Other [facility] Other Start: 03-27-2023 Office outpatient vi sit 25 minutes Cathy Bella [facility] [place] Start: 09-21-2022 End: 09-21-2022 ambulatory Martha Guevara Other [facility] Other Start: 09-21-2022 Office outpatient vi sit 15 minutes Martha Paola [facility] [place] Start: 08-12-2022 End: 08-13-[address] DORY BARNES Facility:[facility] Start: 07-23-2022 End: 07-24-[address] RAMON CARROLL Facility:[facility] Start: 07-08-2022 End: 07-09-[address] RAMON CARROLL Facility:[facility] Start: 06-10-2022 End: 06-11-[address] DORY BARNES Facility:[facility] Start: 05-10-2022 End: 05-11-[address] DORY BARNES Facility:[facility] Start: 04-08-2022 End: 04-09-[address] ODRY BARNES Facility:[facility] Start: 03-11-2022 End: 03-12-[address] DOCTOR SHAWC Facility:[facility] Start: 02-08-2022 End: 02-09-[address] DORY BARNES Facility:[facility] Start: 01-28-2022 End: 01-29-[address] DOCTOR SHAWC Facility:[facility] Start: 01-12-2022 End: 01-12-2022 ambulatory Cathy Bella Other [facility] Other Start: 01-12-2022 Office outpatient vi sit 15 minutes Cathy Bella [facility] [place] Start: 01-07-2022 End: 01-07-2022 ambulatory ISATU GUAMAN . Facility:[facility] Start: 01-03-2022 End: 01-04-[address] SCOUT SWIFT Facility:[facility] Start: 12-28-2021 End: 12-28-2021 ambulatory Martha Guevara Other [facility] Other Start: 12-28-2021 Office outpatient vi sit 15 minutes Martha Paola [facility] [place] Start: 12-25-2021 End: 12-25-2021 ambulatory Cathy Bella Other [facility] Other Start: 12-25-2021 Office outpatient vi sit 25 minutes Cathy Bella [facility] [place] Start: 12-05-2021 End: 12-06-[address] DOCTOR SHAWC Facility:[facility] Start: 11-07-2021 End: 11-08-[address] DOCTOR SHAWC Facility:[facility] Start: 10-27-2021 End: 10-27-2021 ambulatory Cathy Bella Other [facility] Other Start: 10-27-2021 Office outpatient vi sit 15 minutes Cathy Bella [facility] [place] Start: 10-15-2021 End: 10-16-[address] DOCTOR SHAWC Facility:[facility] Start: 10-08-2021 End: 10-09-[address] OBRIEN MISC Facility:[facility] Start: 09-10-2021 End: 09-11-[address] DOCTOR CERNA Facility: Start: 08-14-2021 End: 08-14-2021 ambulatory Martha Guevara Other [facility] Other Start: 08-14-2021 Office outpatient vi sit 15 minutes Martha Guevara [facility] [place] Start: 12-31-2017 End: 01-01-2018 Patient encounter SCOUT MIKE Facility:[facility] Start: 12-25-2017 End: 12-26-2017 Patient encounter ROSALINDA ROSENBAUM Facility:[facility] Start: 10-30-2017 End: 10-31-2017 Patient encounter ROSALINDA ROSENBAUM Facility:[facility] Start: 10-23-2017 End: 10-24-2017 Patient encounter ROSALINDA ROSENBAUM Facility:[facility] Start: 09-25-2017 End: 09-26-2017 Patient encounter ROSALINDA ROSENBAUM Facility:[facility] Start: 08-26-2017 End: 08-27-2017 Patient encounter ROSALINDA ROSENBAUM Facility:[facility] Start: 07-23-2017 End: 07-24-2017 Patient encounter ROSALINDA ROSENBAUM Facility:[facility] Start: 06-20-2017 End: 06-21-2017 Patient encounter ROSALINDA ROSENBAUM Facility:[facility] Start: 05-27-2017 End: 05-28-2017 Patient encounter ROSALINDA ROSENBAUM Facility:[facility] Start: 04-29-2017 End: 04-30-2017 Patient encounter ROSALINDA ROSENBAUM Facility:[facility] Start: 03-27-2017 End: 03-28-2017 Patient encounter ROSALINDA ROSENBAUM Facility:[facility] Start: 02-26-2017 End: 02-27-2017 Patient encounter DORY BARNES Facility:[facility] Procedures Date Procedure Procedure Detail Performing Clinician Start: 12-20-2024 ALL CBC WITH AUTO DIFF Generic External Data Provider Start: 11-17-2024 ALL CBC WITH AUTO DIFF Generic External Data Provider Start: 10-20-2024 ALL MAGNESIUM Generic E xternal Data Provider Start: 10-20-2024 ALL PHOSPHOROUS Generic External Data Provider Start: 10-20-2024 ALL URIC ACID Generic E xternal Data Provider Start: 10-20-2024 [facility] CMP (CMP) (FOR REMOTE [facility] USE) Generic External Data Provider Start: 10-20-2024 [...] 02-13-2024 [facility] CMP (CMP) (FOR REMOTE [facility] USE) Generic External Data Provider Start: 02-13-2024 [...] 11-29-2024 Influenza vaccination Influenza Vacc ine (#1) [facility] Start: 06-01-2024 End: 06-01-2024 Patient encounter procedure 06/01/2024 1:00 PM EST Office Visit [facility] [address] [place] [address] Ester Padilla PA [address] [place] [address] Arrived [facility] Comment on above: Arrived Start: 04-02-2024 Medicare Annual Well ness (AWV) Medicare Annual Wellness (AWV) [facility] Start: 11-30-2023 Influenza vaccination Influenza Vacc ine (#1) [facility] Start: 07-24-2023 Screening for [...] Screening for malign ant neoplasm of colon [facility] Immunizations Immunization Date Immunization Notes Care Provider Fa [facility] 02-19-2024 influenza, injectabl e, madin yaron canine kidney, preservative free Ester STEIN Work Phone: [facility] 02-19-2024 influenza virus vaccine, unspecified formulation Ester STEIN Work Phone: [facility] 01-10-2023 Influenza, Seasonal, Quadrivalent, Adjuvanted Generic Provider [facility] 01-10-2023 influenza virus vaccine, unspecified formulation Generic Provider [facility] 09-16-2022 zoster vaccine recombinant Generic Provider [facility] 07-22-2022 zoster vaccine recombinant Generic Provider [facility] 02-19-2022 Influenza, injectabl e, Madin [place] Canine Kidney, preservative free, quadrivalent Generic Provider [facility] 02-19-2022 SARS-COV-2 (COVID-19 ) vaccine, mRNA, spike protein, LNP, bivalent, PF Generic Provider [facility] 01-09-2021 influenza, seasonal, injectable Generic Provider [facility] 12-12-2019 influenza, injectabl e, quadrivalent, preservative free Generic Provider [facility] 12-26-2018 influenza, injectabl e, quadrivalent, contains preservative [facility] 01-21-2018 influenza, injectabl e, quadrivalent, contains preservative Generic Provider [facility] 12-29-2017 influenza, injectabl e, quadrivalent, preservative free Generic Provider [facility] 12-20-2016 influenza, injectabl e, quadrivalent, preservative free Generic Provider [facility] 12-02-2016 seasonal influenza, intradermal, preservative free Generic Provider [facility] 01-16-2015 influenza, injectabl e, quadrivalent, preservative free Generic Provider [facility] 03-16-2009 influenza virus vaccine, split virus (incl. purified surface antigen) Martha Guevara Other [facility] Other 03-16-2009 influenza virus vaccine, unspecified formulation [facility] Payers Date Payer Category Payer Medicare [employer] [facility] [employer] [id number] 2021-Present [address] [place] [id number] 2021 Medicare (Managed Care) [facility] ADV[facility] [id number] 1959 [facility] [id number] [id number] 1959 Self-pay 1959 Unknown [id number] 1956 Unknown [id number] 2.16.840.1.591879.3.579. 2.647 1956 Unknown [id number] 2.16.840.1.691881.3.579. 2.647 1956 Unknown [id number] 2.16.840.1.829380.3.579. 2.647 1956 Unknown [id number] 2.16.840.1.295980.3.579. 2.647 1956 Unknown [id number] 2.16.840.1.481201.3.579. 2. 1956 Unknown [id number] 2.16.840.1.673357.3.579. 2. 1956 Unknown [id number] 2.16.840.1.729780.3.579. 2.647 1956 Unknown [id number] 2.16.840.1.588935.3.579. 2.647 1956 Unknown [id number] 2.16.840.1.107244.3.579. 2.647 1956 Unknown [id number] 2.16.840.1.299247.3.579. 2.647 1956 Unknown [id number] 2.16.840.1.541847.3.579. 2.647 1956 Unknown [id number] 2.16.840.1.020404.3.579. 2.647 1956 Unknown [id number] 2.16.840.1.597711.3.579. 2.593 1956 Unknown [id number] 2.16.840.1.864472.3.579. 2.593 1956 Unknown [id number] 2.16.840.1.219348.3.579. 2.593 1956 Unknown [id number] 2.16.840.1.862991.3.579. 2.593 1956 Unknown [id number] 2.16.840.1.392431.3.579. 2.593 1956 Unknown [id number] 2.16.840.1.514584.3.579. 2.593 1956 Unknown [id number] 2.16.840.1.256011.3.579. 2.593 1956 Unknown [id number] 2.16.840.1.518143.3.579. 2.593 1956 Unknown [id number] 2.16.840.1.896545.3.579. 2.593 1956 Unknown [id number] 2.16.840.1.334876.3.579. 2.593 1956 Unknown [id number] 2.16.840.1.004364.3.579. 2.593 1956 Unknown [id number] 2.16.840.1.402258.3.579. 2.593 1956 Unknown [id number] 2.16.840.1.050520.3.579. 2.593 1956 Unknown [id number] 2.16.840.1.847198.3.579. 2.593 1956 Unknown [id number] 2.16.840.1.054543.3.579. 2.593 1956 Unknown [id number] 2.16.840.1.326074.3.579. 2.1259 1956 Unknown [id number] 2.16.840.1.287338.3.579. 2.1259 Unknown [id number] 2.16.840.1.443858.3.579. 2.593 Unknown [place] [employer] [id number] Social History Date Type Detail Facility Unknown if ever smoked [facility] Other Start: 09-02-2023 End: 06-01-2024 Sex Assigned At [facility] [employer] Other Start: 01-29-2023 End: 08-30-2023 Tobacco smoking status NHIS Never smoked tobacco (finding) [facility] Start: 1955 Sex Assigned At Female F [facility] Start: 01-29-2023 Tobacco use and exposure Smokeless tobacco non-user [facility] Start: 09-02-2023 End: 06-01-2024 Alcoholic beverage intake Lifetime non-drinker (finding) [facility] Start: 09-02-2023 End: 06-01-2024 History of Social function [facility] Start: 1955 Sex assigned at Not on file N [facility] Clinical Notes 11-10-2007 to 10-14-2024 Telephone Encounter - SARITA Mcrae - 10/14/2024 1:08 PM EDTTelephone Encounter - SARITA Mcrae - 10/14/2024 1:08 PM EDTSARITA Mcrae - 06/01/2024 1:00 PM EST Note Date & Type Note Facility 10-14-2024 Telephone encounter Note Refill request for paroxetine. Sent. [facility] 10-14-2024 Miscellaneous Notes Refill request for paroxetine. Sent. documented in this encounter [facility] 09-29-2024 Note Transplant Clinic Patient : [...] Continue meds and MONTHLY Labs with New [facility] standing Order given today. Follow up 6 months or sooner if needed. See Derm See PCP as scheduled: Dr Carroll. Magic Mouthwash script provided. Chart Review today: 03.17.23 Pt presents visit with . Pt states labs done Last week in [facility] and [place] calling for results. Pt seeing Derm in [place] for lesion: forearm and other lesions. Hx: [...] Hgb. Pt AGAIN instructed to use our [facility] Transplant standing order for her monthly labs. Pt reports B/P stable at home Discussed hydration PLan of Care: Continue meds and MONTHLY Labs with [facility] standing Order. Follow up 6 [...] 24-month everolimus study (more content not included)... [facility] 06-01-2024 History of Present illness Narrative Images [...] Do you have a medical power of assistant prosecuting attorney?: Yes Current Outpatient Medications on File [...] and 3 tablets before bedtime. nystatin (Mycostatin) [id number] UNIT/ML suspension SWISH AND SWALLOW 5 MLS [...] level 01/29/2023 History of stress test Hypertension ([facility]) Joint contracture of foot, unspecified laterality 01/29/2023 Polycystic kidney 2013 Renal transplant recipient ([facility]) 01/29/2023 Past Surgical History: Procedure Laterality Date [...] disease) The patient is seeing a medical assisting instructor for this condition, treatment is deferred to that specialist. Correspondence from that specialist and any available testing were reviewed during today's visit. 7. Joint contracture of foot, unspecified laterality This is a chronic medical condition that is stable since last assessment. No changes in treatment are suggested at this time. 8. Immunosuppression (CMS/HCC) The patient is seeing a medical assisting instructor for this condition, treatment is deferred to that specialist. Correspondence from that specialist and any available testing were reviewed during today's visit. 9. Abnormal complete blood count The patient is seeing a medical assisting instructor for this condition, treatment is deferred to [...] (CMS/HCC) The patient is seeing a medical assisting instructor for this condition, treatment is deferred to that specialist. Correspondence from that specialist and any available testing were reviewed during today's visit. Follow up in about 1 year (around 06/01/2025) for Medicare Wellness Visit. Ester CARRASCO PA-C documented in this encounter [facility] 04-01-2024 Note Transplant Clinic Patient : [...] Continue meds and MONTHLY Labs with New [facility] standing Order given today. Follow up 6 months or sooner if needed. See Derm See PCP as scheduled: Dr Carroll. Magic Mouthwash script provided. Chart Review today: 03.17.23 Pt presents visit with . Pt states labs done Last week in [facility] and [place] calling for results. Pt seeing Derm in [place] for lesion: forearm and other lesions. Hx: [...] Hgb. Pt AGAIN instructed to use our [facility] Transplant standing order for her monthly labs. Pt reports B/P stable at home Discussed hydration PLan of Care: Continue meds and MONTHLY Labs with [facility] standing Order. Follow up 6 [...] study. <<<<<<<<<<<<<<<<<<<<<<<<<<<<<<<<< << (more content not included)... [facility] 12-18-2023 Note Will review by phone today with Dr. Negro Vivas tac level 3.9 for 2 consecutive months and if any dose changes, will notify this pt and amend this note. Most recent IR tacrolimus dosing on record is 0.5mg BID [facility] 12-09-2023 Note Prior auth for Mycop henolate was submitted via cmm Approved- scanned into media Keycode: [id number] [facility] 11-26-2023 Note Prior auth submitted via CMM SARITA Case: [id number], Status: Approved, Coverage Starts on: 08/27/2023 12:00:00 AM, Coverage Ends on: 11/25/2024 12:00:00 AM Keycode: [id number] [facility] 03-27-2023 Evaluation note Encounter Date Diagnosis Assessment Notes Feb, Contact with and (suspected) exposure to covid-19 (ICD-10 - Z20.822) Feb, Viral URI (ICD-10 - J06.9) Advised patient that COVID/Influenza A/B/RSV test and rapid Strep test was negative today. Advised patient that will treat as viral URI. Supportive care as directed, increase fluids and rest, Tylenol as directed, rx of Home, cool mist humidifier, throat lozenges. Discussed infection [...] condition. Feb, Sore throat (ICD-10 - J02.9) [facility] 10-15-2022 Evaluation note* Encounter Date Diagnosis [...] understanding and is agreeable with treatment plan [facility] 09-30-2022 Evaluation note* Encounter Date Diagnosis [...] no improvement in 2 to 3 days. [facility] 09-27-2022 Evaluation note* Encounter Date Diagnosis [...] treatment plan. Patient left in stable condition [facility] 07-30-2022 Evaluation note* Encounter Date Diagnosis [...] verbalizes understanding and agrees with treatment plan [facility] 05-17-2022 Evaluation note* Encounter Date Diagnosis [...] days July, Hematuria, unspecified (ICD-10 - R31.9) [facility] 08-12-2008 History general Narrative - Reported* Type Description Date Medical History PKD found in 1982 when she had a son Medical History hypertension Medical History kidney transplant Surgical History resection of superior cervical mass 11/10/07 Surgical History Teeth extraction in preparation for renal transplant Surgical History portacath placement Surgical History kidney transplant 2013 Hospitalization History see above [facility] Other Evaluation noteNortmphoria Other Evaluation note* Diagnosis Onset Date Resolution Status Thrush, oral acute Sore throat noneactive [facility] Work Phone: Evaluation note* Diagnosis Medicare annual wellness visit, subsequent- Primary ACP (advance care planning) Other specified counseling Acute non-recurrent pansinusitis Acute bronchitis, unspecified organism Primary hypertension ([facility]/HCC) Unspecified essential hypertension PKD (polycystic kidney disease) Congenital polycystic kidney, unspecified type Joint contracture of foot, unspecified laterality Immunosuppression ([facility]) Abnormal complete blood count Other abnormal blood chemistry Current moderate episode of major depressive disorder without prior episode (HCC) ([facility]) Elevated alkaline phosphatase level Estrogen deficiency Other ovarian failure Generalized anxiety disorder ([facility]/HCC) Generalized anxiety disorder Hypercholesteremia ([facility]) Pure hypercholesterolemia Hypomagnesemia Disorders of magnesium metabolism Renal transplant recipient ([facility]) [facility] Diagnosis Current moderate episode of major depressive disorder without prior episode (HCC) documented in this encounter [facility] general Narrative - Reported[place] [facility] Other Summary Purpose Family History Relationship Condition [...] and content) DATE CREATED AUTHOR 01/30/2018 [facility] DATE CREATED AUTHOR AUTHOR'S ORGANIZ ATION 08/17/2021 [facility] DATE CREATED AUTHOR AUTHOR'S ORGANIZ ATION 08/13/[address] [facility] DATE CREATED AUTHOR AUTHOR'S ORGANIZ ATION 06/03/2024 [facility] EPIC DATE CREATED AUTHOR AUTHOR'S ORGANIZ ATION 10/27/2024 [facility] REASON FOR VISIT (unrecogniz ed section [...] August 30, 2023 End: August 30, 2023 Paster Operator Relationship Specialty Start Date End Date Ramon Carroll MD [address] [place] [address] PCP - Amy FERREIRA 04/08/21 Ramon Carroll MD [address] [place] [address] PCP - General Internal Medicine 08/06/22 Paster Operator Relationship Specialty Start Date End Date Ramon Carroll MD [address] [place] [address] PCP - Amy FERREIRA 04/08/21 Ramon Carroll MD [address] [place] [address] PCP - General Internal Medicine 08/06/22 Paster Operator Relationship Specialty Start Date End Date Ramon Carroll MD [address] [place] [address] PCP - Amy FERREIRA 04/08/21 Ramon Carroll MD [address] [place] [address] PCP - General Internal Medicine 08/06/22 Paster Operator Relationship Specialty Start Date End Date Ramon Carroll MD [address] [place] [address] PCP - General Internal Medicine 08/06/22 Paster Operator Relationship Specialty Start Date End Date Ramon Carroll MD [address] [facility] [address] [place] [address] PCP - Amy FERREIRA 04/08/21 Ramon Carroll MD [address] [facility] [address] [place] [address] PCP - General Internal Medicine 08/06/22 Paster Operator Relationship Specialty Start Date End Date Ramon Carroll MD [address] [facility] [address] [place] [address] PCP - Amy FERREIRA 04/08/21 Ramon Carroll MD [address] [facility] [address] [place] [address] PCP - General Internal Medicine 08/06/22 Paster Operator Relationship Specialty Start Date End Date Ramon Carroll MD [address] [facility] [address] [place] [address] PCP - Amy FERREIRA 04/08/21 Ramon Carroll MD [address] [facility] [address] [place] [address] PCP - General Internal Medicine 08/06/22 Goals [...] BASED ON THE PRIMARY CLINICAL RECORDS. The [address] [facility]. provides no warranty or guarantee of the accuracy or completeness of information in this document.
[2025-01-17 07:07] LABS: Hematocrit 43.3 % (36.0-48.0); Hemoglobin 14.2 g/dL (12.0-16.0); Immature Granulocytes Abs Auto 0.02 10^3/uL (0.00-0.03); Immature Granulocytes Pct Auto 0.3 % (0.0-0.5); Lymphocytes Absolute Auto 1.4 10^3/uL (1.2-3.8); Mean Corpuscular HGB Conc 32.8 g/dL (29.9-35.2); Mean Corpuscular Hemoglobin 31.8 pg (26.7-34.0); Mean Corpuscular Volume 96.9 fL (81.0-99.0); Platelet Count 211 10^3/uL (150-450); Red Blood Count 4.47 10^6/uL (4.20-5.40); White Blood Count 7.3 10^3/uL (4.0-11.0)
[2025-01-17 07:23] LABS: Alanine Aminotransferase 22 U/L (14-59); Albumin Globulin Ratio 0.9; Albumin Level 3.4 g/dL (3.4-5.0); Alkaline Phosphatase 159 U/L (46-116); Anion Gap 13.6; Aspartate Amino Transferase 16 U/L (15-37); Blood Urea Nitrogen 16.0 mg/dL (7.0-18.0); Calcium 9.1 mg/dL (8.5-10.1); Carbon Dioxide 28.5 mmol/L (21.0-32.0); Chloride 105 mmol/L (98-107); Estimated GFR (African America >60 (>=60 mL/min/1.73m^2); Estimated GFR (Non-African Ame >60 (>=60 mL/min/1.73m^2); Globulin 3.9 g/dL; Glucose 91 mg/dL (74-106); Magnesium 2.0 mg/dL (1.8-2.4); Potassium 4.1 mmol/L (3.5-5.1); Sodium 143 mmol/L (136-145); Total Protein 7.3 g/dL (6.4-8.2); Uric Acid 4.6 mg/dL (2.6-6.0)
[2025-01-20 01:07] LABS: Tacrolimus (FK506), Blood 3.8 ng/mL (5.0-20.0)
== END 2025-01-17 06:39 | disposition home or self-care (01) ==
LOC: LAB 06:39
PROVIDERS: PCP Internal Medicine; Visit Provider Nurse Practitioner Family
DX: R73.01 Impaired fasting glucose (principal); Z94.0 Kidney transplant status
CPT/HCPCS: 36415; 80053; 80197; 82248; 83735; 84100; 84550; 85025

== ENCOUNTER 2025-02-18 06:37 | Outpatient (OUT) | payer MEDICARE, SELFPAY ==
--- OUTSIDE RECORDS SUMMARY | 2025-02-18 06:43 | XMS_ITS | Clinical Summary ---
Author Organization [employer] [facility] tem Address [id number] [address] [place] [address] Care Team Providers Care Senior Staff Specialized Employment Name Role Phone Ramon Carroll MD Primary Care Provider [phone] Allergies No known active allergies Medications MedicationSigDispense QuantityRefillsLast FilledStart DateEnd DateStatus magnesium oxide (MAG-OX) 400 mg tablet Take 400 mg by mouth daily.Active tacrolimus (PROGRAF) 1 mg capsule Take 1 mg by mouth every 12 (twelve) hours.Active everolimus, immunosuppressive, (ZORTRESS) 0.75 mg tablet Take 0.75 mg by mouth 2 (two) times a day.Active atorvastatin (LIPITOR) 20 mg tablet Take 20 mg by mouth daily.Active amLODIPine (NORVASC) 5 mg tablet Take 5 mg by mouth daily.Active spironolactone (ALDACTONE) 25 mg tablet Take 25 mg by mouth daily.Active Social History Tobacco UseTypesPacks/DayYears UsedDateSmoking Tobacco: NeverSmokeless Tobacco: NeverChildcareAnswerDate PtculgivZqgaopqwhMwsbrrq38/12/2019EmploymentAnswerDate KgugbmcrLqjvcklyduOklzmdu82/12/2019Purpose - LifeAnswerDate RecordedPurpose and direction in lowiGlbychn55/11/2021CommentsUnknownSex and Gender InformationValueDate RecordedSex Assigned at BirthNot on fileLegal SexFemale 11/02/2014 5:12 PM EDTGender IdentityNot on fileSexual OrientationNot on file Last Filed Vital Signs Vital SignReadingTime TakenCommentsBlood Bhjzbrde198/6510 11:34 AM EDT Osqvr7824 11:34 AM EMJZmgrclqzquz35.5 ??C (97.7 ??F)01/25/2018 11:34 AM EDTRespiratory Xmlm7972 11:34 AM EDTOxygen Tkwqzrqqiz70%01/25/2018 11:34 AM EDTInhaled Oxygen Concentration--Shrumo93.7 kg (113 lb 15.7 oz)01/25/2018 11:34 AM VMRVgsvqf206.4 cm (5')01/25/2018 11:34 AM EDTBody Mass Index22.26 01/25/2018 11:34 AM EDT Plan of Treatment Not on file Medical Devices Not on file Insurance * Guarantor: Tanika Jenkins TypeRelation to PatientDate of BirthPhone Billing AddressPersonal/IqepuqBwor07/14/1956 [address] [place] [address] Care Teams Team MemberRelationshipSpecialtyStart DateEnd Ramon Carroll MD [address] [facility] [address] [place] [id number] PCP - GeneralInternal Dmwjhpfq26/28/18
--- OUTSIDE RECORDS SUMMARY | 2025-02-18 06:43 | XMS_ITS | Clinical Summary ---
Author Organization [facility] Healthcare Address [address] [place] [address] Care Team Providers Care Photographic Specialist Name Role Phone Ramon Carroll MD Unavailable [phone] Ramon Carroll MD Primary Care Provider [phone] Allergies No known active allergies Medications MedicationSigDispense QuantityRefillsLast FilledStart DateEnd DateStatus amLODIPine (Norvasc) 5 MG tablet Take 5 mg by mouth in the morning.11/26/2022ctive atorvastatin (Lipitor) 20 MG tablet Take 20 mg by mouth in the morning.Active cyanocobalamin (Vitamin B-12) 100 MCG tablet Take 100 mcg by mouth in the morning.Active spironolactone (Aldactone) 25 MG tablet Take 25 mg by mouth in the morning.Active tacrolimus (Prograf) 0.5 MG capsule Take by mouth 2 (two) times a day.01/24/2023ctive Potassium 99 MG tablet 1 (one) time each day at the same time.Active omega-3 (fish oil) 435 MG capsule 1 capsule 1 (one) time each day at the same time.Active magnesium oxide 400 MG capsule Take by mouth every 12 (twelve) hours.Active mycophenolate (Myfortic) 180 MG EC tablet Take 3 tablets by mouth in the morning and 3 tablets before bedtime.01/27/2023 Active Ferrous Fumarate 325 (106 Fe) MG tablet Daily08/30/2023ctive nystatin (Mycostatin) 948712 UNIT/ML suspension Indications:Thrush, oralSWISH AND SWALLOW 5 MLS ORALLY 4 TIMES A DAY FOR 10 DAYS 60 mL ctive baclofen (Lioresal) 10 MG tablet Indications:Trapezius muscle spasmTake 1 tablet (10 mg) by mouth 2 (two) times a day as needed for muscle spasms 60 tablet 5Active PARoxetine (Paxil) 20 MG tablet Indications:Current moderate episode of major depressive disorder without prior episode (HCC)Take 1 tablet (20 mg) by mouth in the morning. 90 tablet 5Active Active Problems ProblemNoted DateDiagnosed FkawIpmilwilpejpifcjt67/04/2025Hypomagnesemia 06/01/20247491Hcjznftovbzfvhjgja84/04/6900Mxxhbruxmbem95/04/2024KD (polycystic kidney disease)09/02/2023Generalized anxiety kaaosxca23/07/2023urrent moderate episode of major depressive disorder without prior xlrzkoc6203/06/2023Estrogen yyuwxxkjca56/02/2023Joint contracture of foot, unspecified fygqjoimei38/01/2023 Elevated alkaline phosphatase level01/29/2023bnormal complete blood count 01/29/2023Renal transplant sxlxpknya90/01/2023 Resolved Problems ProblemNoted DateDiagnosed DateResolved DateThrush, oral/06/2024 Wicfdbnrnsk73/01/202311/05/20229587Byrgclifh69 Encounters DateTypeDepartmentCare QjjyAkaizcafaak30/20/2025linisync Result Encounter [facility] External Department Unsolicited Provider, Generic External Data 5Clinisync Result Encounter [facility] External Department Unsolicited Provider, Generic External Data from Last 3 Months Immunizations ImmunizationAdministration DatesNext DueInfluenza, Injectable, MDCK, preservative free02/19/2024Influenza, Seasonal, Quadrivalent, Adjuvanted 01/10/2023Influenza, injectable, MDCK, preservative free, pznzofruauca27/22/2022 Influenza, injectable, usvcvymtnyqb16/28/2019,01/21/2018Influenza, injectable, quadrivalent, preservative free12/12/2019,12/29/2017,12/20/2016,01/16/2015 Influenza, seasonal, mxnuaxrdtc43/12/2021Influenza, seasonal, intradermal, preservative free12/02/20168272LTIK-ZLV-3 (COVID-19) vaccine, mRNA, spike protein, LNP, bivalent, PF02/19/2022Zoster, Vtysycywzdy64/19/2023,07/22/2022 Family History Medical HistoryRelationNameCommentsKidney failureBrotherHypertensionFather DiabetesMotherHeart diseaseMotherHypertensionMotherRelationNameStatusComments BrotherAliveFatherDeceasedMotherDeceased Social History Tobacco UseTypesPacks/DayYears UsedDateSmoking Tobacco: NeverSmokeless Tobacco: Never Tobacco Cessation:Counseling Given: Not Answered Alcohol UseStandard Drinks/WeekCommentsNever0 (1 standard drink = 0.6 oz pure alcohol)PHQ-2AnswerDate RecordedPatient Health Questionnaire-2 Gjotl167 CommentsUnknownSex and Gender InformationValueDate RecordedSex Assigned at BirthNot on fileLegal VsqStuyqf55/15/2023 6:45 PM EDTGender IdentityNot on fileSexual OrientationNot on file Last Filed Vital Signs Vital SignReadingTime TakenCommentsBlood Nwlysekw786/7406/01/2024 1:05 PM EST Chiji184306/01/2024 1:05 PM SLUNktlvyivgki70.8 ??C (98.3 ??F)06/01/2024 1:05 PM ESTRespiratory Vqbv069006/01/2024 1:05 PM ESTOxygen Pondhnhzob44%06/01/2024 1:05 PM ESTInhaled Oxygen Concentration--Nwckiw41.2 kg (126 lb 3.2 oz)06/01/2024 1:05 PM OGJUwipoh479.4 cm (5')06/01/2024 1:05 PM ESTBody Mass Index24.65006/01/2024 1:05 PM EST Plan of Treatment Health MaintenanceDue DateLast DoneCommentsCT Kgwdtcqgyhui73/14/1956FIT 1955FOBT1955Qzpfxhkpdtbpq16/14/1957Pneumococcal Vaccine: 65+ Years (1 of 2 - PCV)11/12/1975COVID-19 Vaccine (3 - 2024- season)2024 02/19/2022, 03/28/2021, 06/07/2020Influenza Vaccine (#1)511/, 01/10/2023, 02/19/2022, Additional history auolqmRgwrfvmpe83/13/202511/, 07/23/2022, 04/02/2021, Additional history existsMedicare Annual Wellness (AWV) /06/2024, 04/02/2023, 01/30/2023FIT-DNA Iskxobaawup03Colorectal Cancer Vnhyhmkvf80/30/2028 Procedures Procedure NamePriorityDate/TimeAssociated DiagnosisCommentsTACROLIMUS (FK506), RISLCAdzxdzn61/20/2025 6:53 AM EDT METRO BILIRUBIN, XNDYJEQnrshac64/20/2025 6:53 AM EDT ALL TFKPTOJQRCexofmy64/20/2025 6:53 AM EDT ALL HRVBPPUTIBBExonnnb03/20/2025 6:53 AM EDT ALL URIC IGOTVemdjvw25/20/2025 6:53 AM EDT [facility] CMP (CMP) (FOR REMOTE [facility] USE)Hyjocff7101/17/2025 6:53 AM EDT ALL CBC WITH AUTO BMBDYejygyt21/20/2025 6:53 AM EDT TACROLIMUS (FK506), OIHCGCybwxdx22/22/2025 7:00 AM EDT METRO BILIRUBIN, RAZHGZTfqevey51/22/2025 7:00 AM EDT ALL UPRITQKGNUruhhea82/22/2025 7:00 AM EDT ALL EDJLNEADVSXEzlgzyh47/22/2025 7:00 AM EDT ALL URIC AMFHPdprwyz32/22/2025 7:00 AM EDT [facility] CMP (CMP) (FOR REMOTE [facility] USE)Llzzaye8412/20/2024 7:00 AM EDT MLR HEMOGLOBIN E0STlynzwv86/22/2025 7:00 AM EDT ALL CBC WITH AUTO PRBMZhwogmb21/22/2025 7:00 AM EDT MM TOMOSYNTHESIS SCREENING BI02/11/2024 9:08 AM EST LAB COLOGUARD?? COLON CANCER FQUFYPEnxwval79/17/2023 1:15 PM EST Screening for colorectal cancer from Last 3 Months or Most Recently Relevant to Health Maintenance Results * (ABNORMAL) TACROLIMUS (FK506), BLOOD (01/17/2025 6:53 AM EDT) Only the most recent of2 resultswithin the time period is included. ComponentValueRef RangeTest MethodAnalysis TimePerformed AtPathologist Signature TACROLIMUS (FK506), BLOOD3.8(A)5.0 - 20.0 ng/mLTBHComment: This test was developed and its performance characteristics determined by [facility]. It has not been cleared or approved by the Food and Drug Administration. Target steady state trough concentration for Tacrolimus varies based on type of organ transplant immunosuppressive protocol and other patient specific factors. ??Tacrolimus trough concentrations should be interpreted in conjunction with clinical assessments of rejection and tolerability. ??Values obtained with different assay methods cannot be used interchangeably due to differences in assay methods and cross-reactivty with metabolites, nor should correction factors be applied. ??Therefore, consistent use of one assay for individual patients is recommended. Detection Limit = 0.5 ng/mL Performed by LC-MS/MS technology. Performed at: ?? - [facility] [address] ??[id number] Master Barber: Marizol Singleton MD, Phone: ??[phone] Specimen (Source)Anatomical Location / LateralityCollection Method / Volume Collection TimeReceived Time01/17/2025 6:53 AM EDT1 6:54 AM EDT Narrative CLINISYNC - 01/20/2025 1:07 AM EDT Authorizing ProviderResult TypeResult StatusGeneric External Data ProviderLAB BLOOD ORDERABLESFinal ResultPerforming OrganizationAddressCity/State/ZIP Code Phone Number [facility] * [facility] BILIRUBIN, DIRECT (01/17/2025 6:53 AM EDT) Only the most recent of2 resultswithin the time period is included. ComponentValueRef RangeTest MethodAnalysis TimePerformed AtPathologist Signature BILIRUBIN DIRECT0.20.0 - 0.2 mg/dLTBHSpecimen (Source)Anatomical Location / LateralityCollection Method / VolumeCollection TimeReceived Time01/17/2025 6:53 AM EDT1 6:54 AM EDT Narrative CLINISYPR - 01/17/2025 7:23 AM EDT Authorizing ProviderResult TypeResult StatusGeneric External Data Provider CLINISYNCFinal ResultPerforming OrganizationAddressCity/State/ZIP CodePhone Number [facility] * (ABNORMAL) [facility] CMP (CMP) (FOR REMOTE [facility] USE) (01/17/2025 6:53 AM EDT) Only the most recent of2 resultswithin the time period is included. ComponentValueRef RangeTest MethodAnalysis TimePerformed AtPathologist Signature OZNPNF329651 - 145 mmol/LTBHPOTASSIUM4.13.5 - 5.1 mmol/BZEEJIXDRRZX11254 - 107 mmol/LTBHCARBON SWSKARP76.521.0 - 32.0 mmol/LTBHANION GAP13.8HQZCNOCYDC0337 - 106 mg/dLTBHBLOOD UREA TYQFIXEU33.07.0 - 18.0 mg/dLTBHCREATININE0.780.55 - 1.02 mg/dLTBHTBH EGFR-AF UGANDAN>60>=60 mL/min/1.73m 2TBHTBH EGFR-NON AF UGANDAN>60 >=60 mL/min/1.73m 2TBHBUN CREATININE RATIO20.6LWMYGPQOIC8.18.5 - 10.1 mg/dLTBH BILIRUBIN TOTAL0.70.2 - 1.0 mg/dLTBHASPARTATE AMINO GJMGWDQTRPH0332 - 37 U/LTBH ALANINE PGFCCVTNORNSESPA1983 - 59 U/LTBHALKALINE VINKUALXSFO951(H)46 - 116 U/L TBHTOTAL PROTEIN7.36.4 - 8.2 g/dLTBHALBUMIN LEVEL3.43.4 - 5.0 g/dLTBHGLOBULIN3.9 g/dLTBHALBUMIN GLOBULIN RATIO0.9TBHSpecimen (Source)Anatomical Location / LateralityCollection Method / VolumeCollection TimeReceived Time01/17/2025 6:53 AM EDT1 6:54 AM EDT Narrative CLINISYNC - 01/17/2025 7:23 AM EDT Authorizing ProviderResult TypeResult StatusGeneric External Data Provider CLINISYNCFinal ResultPerforming OrganizationAddressty/State/ZIP CodePhone Number [facility] * ALL URIC ACID (01/17/2025 6:53 AM EDT) Only the most recent of2 resultswithin the time period is included. ComponentValueRef RangeTest MethodAnalysis TimePerformed AtPathologist Signature URIC ACID4.62.6 - 6.0 mg/dLTBHSpecimen (Source)Anatomical Location / Laterality Collection Method / VolumeCollection TimeReceived Time01/17/2025 6:53 AM EDT 01/17/2025 6:54 AM EDT Narrative CLINISYPR - 01/17/2025 7:23 AM EDT Authorizing ProviderResult TypeResult StatusGeneric External Data Provider CLINISYNCFinal ResultPerforming OrganizationAddSt. Mary Rehabilitation Hospitalty/State/ZIP CodePhone Number [facility] * ALL PHOSPHOROUS (01/17/2025 6:53 AM EDT) Only the most recent of2 resultswithin the time period is included. ComponentValueRef RangeTest MethodAnalysis TimePerformed AtPathologist Signature PHOSPHORUS3.22.6 - 4.7 mg/dLTBHSpecimen (Source)Anatomical Location / Laterality Collection Method / VolumeCollection TimeReceived Time01/17/2025 6:53 AM EDT 01/17/2025 6:54 AM EDT Narrative CLINISYNC - 01/17/2025 7:23 AM EDT Authorizing ProviderResult TypeResult StatusGeneric External Data Provider CLINISYNCFinal ResultPerforming OrganizationAddressCity/State/ZIP CodePhone Number [facility] * ALL MAGNESIUM (01/17/2025 6:53 AM EDT) Only the most recent of2 resultswithin the time period is included. ComponentValueRef RangeTest MethodAnalysis TimePerformed AtPathologist Signature MAGNESIUM2.01.8 - 2.4 mg/dLTBHSpecimen (Source)Anatomical Location / Laterality Collection Method / VolumeCollection TimeReceived Time01/17/2025 6:53 AM EDT 01/17/2025 6:54 AM EDT Narrative CLINISYNC - 01/17/2025 7:23 AM EDT Authorizing ProviderResult TypeResult StatusGeneric External Data Provider CLINISYNCFinal ResultPerforming OrganizationAddressCity/State/ZIP CodePhone Number [facility] * (ABNORMAL) ALL CBC WITH AUTO DIFF (01/17/2025 6:53 AM EDT) Only the most recent of2 resultswithin the time period is included. ComponentValueRef RangeTest MethodAnalysis TimePerformed AtPathologist Signature TBH WBC7.34.0 - 11.0 10 3/uLTBHTBH RBC4.474.20 - 5.40 10 6/uLTBHTBH HGB14.212.0 - 16.0 g/dLTBHTBH HCT43.336.0 - 48.0 %TBHTBH MCV96.981.0 - 99.0 fLTBHTBH MCH31.8 26.7 - 34.0 pgTBHTBH MCHC32.829.9 - 35.2 g/dLTBHTBH RDW14.711.0 - 15.0 %TBHTBH RUY840894 - 450 10 3/uLTBHTBH MPV11.29.5 - 13.5 fLTBHNEUTROPHILS PERCENT AUTO 66.243.0 - 75.0 %TBHLYMPHOCYTES PERCENT AUTO19.4(L)20.5 - 60.0 %TBHMONOCYTES PERCENT AUTO12.01.7 - 12.0 %TBHTBH EO %2.00.9 - 7.0 %TBHBASOPHILS PERCENT AUTO 0.1(L)0.2 - 2.0 %TBHIMMATURE GRANULOCYTES PCT AUTO0.30.0 - 0.5 %TBHNEUTROPHILS ABSOLUTE AUTO4.81.4 - 6.5 10 3/uLTBHLYMPHOCYTES ABSOLUTE AUTO1.41.2 - 3.8 10 3/uLTBHMONOCYTES ABSOLUTE AUTO0.9(H)0.3 - 0.8 10 3/uLTBHTBH EO #0.20.0 - 0.7 10 3/uLTBHBASOPHILS ABSOLUTE AUTO0.00.0 - 0.1 10 3/uLTBHIMMATURE GRANULOCYTES ABS AUTO0.020.00 - 0.03 10 3/uLTBHSpecimen (Source)Anatomical Location / Laterality Collection Method / VolumeCollection TimeReceived Time01/17/2025 6:53 AM EDT 01/17/2025 6:54 AM EDT Narrative CLINISYPR - 01/17/2025 7:10 AM EDT Authorizing ProviderResult TypeResult StatusGeneric External Data Provider CLINISYNCFinal ResultPerforming OrganizationAddressCity/State/ZIP CodePhone Number [facility] * MLR HEMOGLOBIN A1C (12/20/2024 7:00 AM EDT)ComponentValueRef RangeTest Method Analysis TimePerformed AtPathologist SignatureGLYCOHEMOGLOBIN A1C5.34.5 - 6.2 %TBHComment: ADA RECOMMENDED LIMIT 4.0 - 6.0 ADA THERAPEUTIC TARGET < 7.0 ACTION SUGGESTED > 7.0 ESTIMATED AVERAGE XRWTLAI013xd/dLTBHSpecimen (Source)Anatomical Location / LateralityCollection Method / VolumeCollection TimeReceived Time12/20/2024 7:00 AM EDT12/20/2024 7:01 AM EDT Narrative CLINISYPR - 12/20/2024 7:49 AM EDT Authorizing ProviderResult TypeResult StatusGeneric External Data Provider CLINISYNCFinal ResultPerforming OrganizationAddressCity/State/ZIP CodePhone Number [facility] * MM TOMOSYNTHESIS SCREENING BI (02/11/2024 9:08 AM EST)Anatomical Region LateralityModalityOtherSpecimen (Source)Anatomical Location / Laterality Collection Method / VolumeCollection TimeReceived Time02/11/2024 9:08 AM EST Narrative 02/11/2024 9:[address] [facility] ?[address] ? [place] [address] ? Mammography Report ? Signed ? Patient: JENKINS,TANIKA L ?MR#: [id number] ?? : 1955 ?Acct:[id number] ?? Age/Sex: 68 / F ?ADM Date: 11/13/24 ?? Loc: MAMMO ? Attending Dr: RAMON CARROLL ? Ordering Physician: RAMON CARROLL ? Results: ? Date of Service: 02/11/24 ?Follow Up: ? Procedure(s): MM tomosynthesis screening BI ?? Accession Number(s): [id number] ? cc: RAMON CARROLL ? Patient Name: ? TANIKA JENKINS ? MR#: [id number] ? : 1955 ? Exam Date: 02/11/2024 ?? Ordering Doctor: DR RAMON CARROLL M.D. ? RADIOLOGY REPORT ? PROCEDURE: ? MM TOMOSYNTHESIS SCREENING BI ? COMPARISON: ? MG MAMM SCREEN 3D [place] CAD, 04/02/2021. ??MG MAMM SCREEN 3D [place] ?? CAD, 07/23/2022. ? INDICATIONS: ? Screening for malignant neoplasm ? Calculator Name ? NCI Breast Cancer Risk Assessment Tool ?? 5 Year Breast Cancer Risk ? 1.90% ?? Lifetime Breast Cancer Risk ? 6.40% ?? Personal Breast Cancer ?No ?? Personal Ovarian Cancer ? No ?? Treatments ? None ?? Family Cancers ? None ? LOCATION: ? [facility] ? BREAST COMPOSITION: ? The breasts are extremely dense, which lowers the ?? sensitivity of mammography. ? FINDINGS: ? DIAGNOSTIC CATEGORY 1--NEGATIVE. NO CHANGE FROM COMPARISON ASSESSMENT. ? Scattered benign-appearing calcifications are present. ??Scattered ?? benign-appearing lymph nodes are present. ? RIGHT BREAST: ??No significant suspicious finding. ? LEFT BREAST: ??No significant suspicious finding. ? RECOMMENDATIONS: ? ROUTINE MAMMOGRAM AND CLINICAL EVALUATION IN 12 MONTHS. ? PLEASE NOTE: ??A NORMAL MAMMOGRAM DOES NOT EXCLUDE THE POSSIBILITY OF BREAST ?? CANCER. ??A CLINICALLY SUSPICIOUS PALPABLE LUMP SHOULD BE BIOPSIED. ? Dictated by: Glenroy Bass MD on 02/11/2024 at 09:07 ? Approved by: Glenroy Bass MD on 02/11/2024 at 09:08 ? Dictated By: ?Glenroy Bass M.D. ? Signed By: ?02/11/24908 ? DD/ 0908 ? TD/TT: ? Apprenticeship Training Representative: Procedure Note Radiology, Radiologist, MD - 02/11/2024 [place] [address] Mammography Report Signed Patient: TANIKA JENKINS LMR#: [id number] : 1955cct:[id number] Age/Sex: 68 / FADM Date: 02/11/24 Loc: MAMMO Attending Dr: RAMON CARROLL Ordering Physician: David CARROLLults: Date of Service: 02/11/24Follow Up: Procedure(s): MM tomosynthesis screening BI Accession Number(s): [id number] cc: RAMON CARROLL Patient Name: TANIKA JENKINS MR#: [id number] : 1955 Exam Date: 02/11/2024 Ordering Doctor: [...] None Family Cancers None LOCATION: [facility] BREAST COMPOSITION: The breasts are [...] Bass M.D. Signed By:02/11/24908 DD/ 7 TD/TT: Apprenticeship Training Representative: Authorizing ProviderResult TypeResult StatusDanililli Carroll MDCLINISYNC IMAGING Final Result * Cologuard?? colon cancer screening (02/14/2023 1:15 PM EST)ComponentValueRef RangeTest MethodAnalysis TimePerformed AtPathologist SignatureNONINV COLON CA DNA+OCC BLD SCRN STL-YSZBysbkvylKthycmou07/27/2023 5:35 PM [facility] (CLIA #:[id number])Comment: NEGATIVE TEST RESULT. A negative Cologuard result indicates a low likelihood that a colorectal cancer (CRC) or advanced adenoma (adenomatous polyps with more advanced pre-malignant features) ??is present. The chance that a person with a negative Cologuard test has a colorectal cancer is less than 1in 1500 (negative predictive value >99.9%) or has an advanced adenoma is less than 5.3% (negative predictive value 94.7%). These data are based on a prospective cross-sectional study of 10,000individuals at average risk for colorectal cancer who were screened with both Cologuard and colonoscopy. (Jhon Corado al, N Engl J Med 2014;370(14):4587-8061) The normal value (reference range) for this assay is negative. COLOGUARD RE-SCREENING RECOMMENDATION: Periodic colorectal cancer screening is an important part ofpreventive healthcare for asymptomatic individuals at average risk for colorectal cancer. ??Following a negative Cologuard result, the [place] [employer] and U.S. Multi-Society Task Force screening guidelines recommend a Cologuard re-screening interval of 3 years. References: [employer] Guideline for Colorectal Cancer Screening: https://www.cancer.or g/cancer/svmut-gvmnto-cmngoz/oosremenw-rjmrbjyoe-rstbayy/acs-recommendations.htm nancy; Vinnie COPELAND, David ABREU, Robert WILLIS, Colorectal Cancer Screening: Recommendations for Physicians and Patients from the U.S. Multi-Society Task Force on Colorectal Cancer Screening , Am J Gastroenterology 2017; 112:4904-8973. TEST DESCRIPTION: Composite algorithmic analysis of stool DNA-biomarkers with hemoglobin immunoassay. ?? Quantitative values of individual biomarkers are not reportable and are not associated with individual biomarker result reference ranges. Cologuard is intended for colorectal cancer screening ofadults of either sex, 45 years or older, [...] (Jhon Corado al, N Engl J Med 2014;370(14):7169-4338.) Cologuard may produce a false negative or false positive result (no colorectal cancer or precancerous polyp present at colonoscopy follow up). A negative Cologuard test result does not guarantee the absence of CRC or advanced adenoma (pre-cancer). The current Cologuard screening interval is every 3 years. ([employer] [employer] and U.S. Multi-Society Task Force). Cologuard performance data in a 10,000 patient pivotal study using colonoscopy as the reference method can be accessed at the following location: www.[employer]/results. Additional description of the Cologuard test process, warnings and precautions can be found at www.cologuard.com. Specimen (Source)Anatomical Location / LateralityCollection Method / Volume Collection TimeReceived TimeStool specimen (specimen)02/14/2023 1:15 PM EST 02/15/2023 5:51 PM EST Narrative Authorizing ProviderResult TypeResult StatusDanililli [facility] ORDERABLESFinal ResultPerforming OrganizationAddressCity/State/ZIP CodePhone Number .[employer] (CLIA #:[id number]) [address] [place] [address], [place] [phone] [employer] (CLIA #:[id number]) [address] [place] [phone] from Last 3 Months or Most Recently Relevant to Health Maintenance Insurance * Guarantor: Kiet Jenkins TypeRelation to PatientDate of BirthPhone Billing AddressPersonal/OprfwiTxqn00/14/1956 [facility] [phone] Care Teams Team MemberRelationshipSpecialtyStart DateEnd Date Ramon Carroll MD [address] [facility] [address] [place] [address] PCP - Paul [place] MS04/08/21 Ramon Carroll MD [address] [address] PCP - GeneralInternal Medicine08/06/22
--- OUTSIDE RECORDS SUMMARY | 2025-02-18 06:43 | XMS_ITS | Clinical Summary ---
Author Organization [facility] Address [address] [place] [address] Care Team Providers Care Benefits Clerk Name Role Phone Ramon Carroll MD Primary Care Provider [phone] Virgil Haynes CNP Unavailable [phone] Allergies No known active allergies Medications MedicationSigDispense QuantityRefillsLast FilledStart DateEnd DateStatus potassium gluconate 595 mg (99 mg) tablet every 12 (twelve) hours.01/25/2014ctive magnesium oxide (Mag-Ox) 400 mg (241.3 mg magnesium) tablet Take 400 mg by mouth in the morning.Active cyanocobalamin (Vitamin B-12) 500 mcg tablet in the morning.05/30/2010ctive amoxicillin (Amoxil) 500 mg capsule 1 capsule every 8 (eight) hours.02/26/2022ctive omega-3 fatty acids-fish oil (Fish OiL Extra Strength) 435-880 mg capsule 1 capsule 1 (one) time each day at the same time.Active PARoxetine (Paxil) 10 mg tablet Take 10 mg by mouth in the morning.Active baclofen (Lioresal) 10 mg tablet 03/06/2023ctive amLODIPine (Norvasc) 5 mg tablet Indications:Hypertension, unspecified typeTake 1 tablet (5 mg) by mouth in the morning. 90 tablet 5Active spironolactone (Aldactone) 25 mg tablet Indications:ImmunosuppressionTake 1 tablet (25 mg) by mouth in the morning. 90 tablet /ctive atorvastatin (Lipitor) 20 mg tablet Indications:Hyperlipidemia, unspecified hyperlipidemia typeTake 1 tablet (20 mg) by mouth at bedtime. 90 tablet 307507/6Active mycophenolate (Myfortic) 180 mg EC tablet Indications:ImmunosuppressionTake 3 tablets (540 mg) by mouth two times daily. 240 tablet 5Active tacrolimus (Prograf) 0.5 mg capsule Indications:History of kidney transplantTake 1 capsule (0.5 mg) by mouth two times daily. TAKE 1 CAPSULE BY MOUTH EVERY MORNING AND 1 EVERYNIGHT AT BEDTIME 60 capsule 1115Active Active Problems No known active problems Encounters DateTypeDepartmentCare JnryFgyhmusobmv88/13/2025Refill [facility] Transplant [address] [place] [address] Leah Salinas MA History of kidney transplantfrom Last 3 Months Family History RelationNameStatusCommentsFatherDeceasedMotherDeceased Social History Tobacco UseTypesPacks/DayYears UsedDateSmoking Tobacco: NeverSmokeless Tobacco: Never Tobacco Cessation:Counseling Given: Not Answered Alcohol UseStandard Drinks/WeekCommentsNever0 (1 standard drink = 0.6 oz pure alcohol)PHQ-2AnswerDate RecordedPatient Health Questionnaire-2 Jeduq797 [place] Safety & EnvironmentAnswerDate RecordedFear of Current or Ex-PartnerNot on file05/22/2023Emotionally AbusedNot on file05/22/2023hysically AbusedNot on file05/22/2023Sexually AbusedNot on file05/22/2023hysically or Sexually Abused Not on file05/22/2023CommentsNoSex and Gender InformationValueDate RecordedSex Assigned at BirthNot on fileLegal AwuGukkpc43/29/2022 10:39 PM EDT Gender IdentityNot on fileSexual OrientationNot on file Last Filed Vital Signs Vital SignReadingTime TakenCommentsBlood Qgricrxm745/77009/29/2024 8:34 AM EDT Uwqwn4780/02/2025 8:34 AM QZQOkjsgojipit81.4 ??C (97.5 ??F)04/01/2024 8:54 AM ESTRespiratory Npir229009/29/2024 8:34 AM EDTOxygen Vowbkdznrc73%09/29/2024 8:34 AM EDTInhaled Oxygen Concentration--Wcaumq44.2 kg (126 lb)09/29/2024 8:34 AM EDT Uoqqcj398.4 cm (5')09/29/2024 8:34 AM EDTBody Mass Index24.61009/29/2024 8:34 AM EDT Plan of Treatment DateTypeDepartmentCare Team (Latest Contact Info)Hhffecugfug16/07/2026 9:30 AM ESTFollow-Up [facility] Transplant [address] [place] [id number] Savzyan, Alfredo, FIELD CONTACT TECHNICIAN [address] [place] [address] Health MaintenanceDue DateLast DoneCommentsCT Jsvjchicwewc17/14/1957Colonoscopy 1956FOBT1956Medicare Annual Wellness (AWV)1956Sigmoidoscopy 1956Pneumococcal Vaccine: 50+ Years (1 of 2 - PCV)11/12/1975Adult Tetanus 1978FITMammogramOVID-19 Vaccine ( - 2024- season), 03/28/2021, 06/07/2020Influenza Vaccine (#1)/, 01/10/2023, 02/19/2022, Additional history existsDepression Gnokmpkhv31Fall Risk Zrhixnwvv72/02/2026 09/29/2024olorectal Cancer Axfmmzvmk62/17/2026FIT-DNAZoster PpcrkhtzKpdkwhwvj10/19/2023, 07/22/2022HIB VaccinesAged OutNo longer eligible based on patient's age to complete this topicHPV VaccinesAged OutNo longer eligible based on patient's age to complete this topicIPV VaccinesAged OutNo longer eligible based on patient's age to complete this topicMeningococcal B VaccineAged OutNo longer eligible based on patient's age to complete this topic Meningococcal VaccineAged OutNo longer eligible based on patient's age to complete this topicRotavirus VaccinesAged OutNo longer eligible based on patient's age to complete this topic Insurance Care Teams Team MemberRelationshipSpecialtyStart DateEnd Ramon Carroll MD [address] [facility] [address] [place] [address] PCP - Crjegsp00/22/22 Virgil Haynes CNP [address] [facility] [address] [place] [address] Nurse LjahcxlfvekiSlwbebb05/20/22
[2025-02-18 07:05] LABS: Hematocrit 44.5 % (36.0-48.0); Hemoglobin 14.3 g/dL (12.0-16.0); Immature Granulocytes Abs Auto 0.01 10^3/uL (0.00-0.03); Immature Granulocytes Pct Auto 0.1 % (0.0-0.5); Lymphocytes Absolute Auto 0.8 10^3/uL (1.2-3.8); Mean Corpuscular HGB Conc 32.1 g/dL (29.9-35.2); Mean Corpuscular Hemoglobin 30.8 pg (26.7-34.0); Mean Corpuscular Volume 95.9 fL (81.0-99.0); Platelet Count 182 10^3/uL (150-450); Red Blood Count 4.64 10^6/uL (4.20-5.40); White Blood Count 7.2 10^3/uL (4.0-11.0)
[2025-02-18 07:31] LABS: Alanine Aminotransferase 23 U/L (14-59); Albumin Globulin Ratio 1.1; Albumin Level 3.6 g/dL (3.4-5.0); Alkaline Phosphatase 171 U/L (46-116); Anion Gap 9.8; Aspartate Amino Transferase 16 U/L (15-37); Blood Urea Nitrogen 18.0 mg/dL (7.0-18.0); Calcium 9.0 mg/dL (8.5-10.1); Carbon Dioxide 29.6 mmol/L (21.0-32.0); Chloride 105 mmol/L (98-107); Cholesterol 109 mg/dL (<=200); Estimated GFR (African America >60 (>=60 mL/min/1.73m^2); Estimated GFR (Non-African Ame 58 (>=60 mL/min/1.73m^2); Globulin 3.2 g/dL; Glucose 96 mg/dL (74-106); HDL Cholesterol 41 mg/dL (40-60); Magnesium 1.8 mg/dL (1.8-2.4); Potassium 4.4 mmol/L (3.5-5.1); Sodium 140 mmol/L (136-145); Total Protein 6.8 g/dL (6.4-8.2); Triglycerides 78 mg/dL (<=150); Uric Acid 4.7 mg/dL (2.6-6.0); VLDL CHOLESTEROL 15.6 mg/dL
[2025-02-19 14:08] LABS: BKV DNA, Quant PCR, Plasma Negative (Negative)
[2025-02-21 06:07] LABS: Tacrolimus (FK506), Blood 4.7 ng/mL (5.0-20.0)
== END 2025-02-18 06:38 | disposition home or self-care (01) ==
LOC: LAB 06:40
PROVIDERS: PCP Internal Medicine; Visit Provider Nurse Practitioner Family
DX: R73.01 Impaired fasting glucose (principal); Z94.0 Kidney transplant status
CPT/HCPCS: 36415; 80053; 80061; 80197; 82248; 83036; 83735; 84100; 84550; 85025; 87799

== ENCOUNTER 2025-03-21 06:39 | Outpatient (OUT) | payer MEDICARE, SELFPAY ==
--- OUTSIDE RECORDS SUMMARY | 2025-03-14 13:30 | XMS_ITS | Encounter Summary ---
Author Organization [facility] Address [address] [place] [address] Care Team Providers Care Cementing Bulk Material Operator Name Role Phone Ramon Carroll MD Unavailable [phone] Ramon Carroll MD Primary Care Provider [phone] Encounter Details DateTypeDepartmentCare Team (Latest Contact Info)Imtovitzscb84/15/2025 1:30 PM ESTOffice Visit [facility] [address] [facility] [address] [place] [id number] Ester Green PA [address] [facility] [address] [place] [address] Acute non-recurrent pansinusitis (Primary Dx); Acute bronchitis, unspecified organism Social History Tobacco UseTypesPacks/DayYears UsedDateSmoking Tobacco: NeverSmokeless Tobacco: NeverAlcohol UseStandard Drinks/WeekCommentsNever0 (1 standard drink = 0.6 oz pure alcohol)PHQ-2AnswerDate RecordedPatient Health Questionnaire-2 Score0 03/14/2025CommentsUnknownSex and Gender InformationValueDate RecordedSex Assigned at BirthNot on fileLegal DwzTcinrs53/15/2023 6:45 PM EDTGender Identity Not on fileSexual OrientationNot on filedocumented as of this encounter Last Filed Vital Signs Vital SignReadingTime TakenCommentsBlood Rebvoxvx626/7803/14/2025 1:35 PM EST Upcmj102303/14/2025 1:35 PM BCIIoqnyxolnef30.8 ??C (98.2 ??F)03/14/2025 1:35 PM ESTRespiratory Uoyz398405/15/2024 1:35 PM ESTOxygen Iuvzpywiwv37%03/14/2025 1:35 PM ESTInhaled Oxygen Concentration--Guhwdv43.9 kg (125 lb 6.4 oz)03/14/2025 1:35 PM XFDQujyim903.4 cm (5')03/14/2025 1:35 PM ESTBody Mass Index24.4903/14/2025 1:35 PM ESTdocumented in this encounter Functional Status * Over the past 2 weeks, how often have you been bothered by any of the following problems?QuestionAnswerDate of AssessmentAuthorLittle interest or pleasure in doing thingsNot at all03/14/2025 1:30 PM ESTVoss, Anushka, CYANIDE FURNACE OPERATOR Feeling down, depressed, or hopelessNot at all03/14/2025 1:30 PM ESTVoss, Anushka, LPNPatient Health Questionnaire-2 Ftnia85605/15/2024 1:30 PM ESTVoss, Anushka, CYANIDE FURNACE OPERATOR documented as of this encounter Progress Notes * SARITA Mcrae - 03/14/2025 1:30 PM EST Images from the original note were not included. Subjective Patient ID: Tanika Jenkins is a 69 y.o. female who presents for URI. Tanika is present today for evaluation of URI. Admits sinus pressure, headaches, runny nose (green mucuous), right ear discomfort, post nasal drainage, cough with green phlegm, wheezing, body aches, fatigue. She has been sick for 5 days. She has been taking Tylenol and it is not helping. Car recently broke down. Significant other is in a rehab facility right now due to recent back surgery after a fall. Over the past 2 weeks, how often have you been bothered by any of the following problems? Little interest or pleasure in doing things: Not at all Feeling down, depressed, or hopeless: Not at all Patient Health Questionnaire-2 Score: 0 Current Outpatient Medications on File Prior to [...] and 3 tablets before bedtime. nystatin (Mycostatin) 010277 UNIT/ML suspension SWISH AND SWALLOW 5 MLS ORALLY 4 TIMES A DAY FOR 10DAYS 60 mL 1 omega-3 (fish oil) 435 MG capsule 1 capsule 1 (one) time each day at the same time. PARoxetine (Paxil) 20 MG tablet Take 1 tablet (20 mg) by mouth in the morning. 90 tablet 2 Potassium 99 MG tablet 1 (one) time [...] level 01/29/2023 History of stress test Hypertension Joint contracture of foot, unspecified laterality 01/29/2023 Polycystic kidney 2013 Renal transplant recipient (HCC) 01/29/2023 Past Surgical History: Procedure Laterality Date CYSTOSCOPY 2013 STRESS TEST EXERCISE 2013 KIDNEY TRANSPLANT 2015 Visit Vitals BP 102/78 Pulse 63 Temp 98.2 ??F Resp 16 Ht 5' Wt 125 lb 6.4 oz SpO2 98% BMI 24.49 kg/m?? Smoking Status Never BSA 1.55 m?? Review of Systems Constitutional: Positive for fatigue. Negative for chills and fever. HENT: Positive for congestion, ear pain, postnasal drip, rhinorrhea, sinus pressure and sinus pain.Negative for sore throat. Respiratory: Positive for cough and wheezing. Negative for shortness of breath. Cardiovascular: Negative for chest pain, palpitations and leg swelling. Gastrointestinal: Negative for abdominal pain, constipation, diarrhea, nausea and vomiting. Musculoskeletal: Positive for myalgias. Neurological: Positive for headaches. Objective Physical Exam Constitutional: General: She is not in acute distress. Appearance: She is well-developed. She is ill-appearing. HENT: Head: Normocephalic and atraumatic. Right Ear: Tympanic membrane and ear canal normal. Left Ear: Tympanic membrane and ear canal normal. Nose: Congestion present. Right Turbinates: Swollen. Left Turbinates: Swollen. Right Sinus: Maxillary sinus tenderness and frontal sinus tenderness present. Left Sinus: Maxillary sinus tenderness and frontal sinus tenderness present. Mouth/Throat: Mouth: Mucous membranes are dry. Pharynx: Posterior oropharyngeal erythema present. Eyes: General: No scleral icterus. Conjunctiva/sclera: Conjunctivae normal. Cardiovascular: Rate and Rhythm: Normal rate and regular rhythm. Heart sounds: Normal heart sounds. No murmur heard. Pulmonary: Effort: Pulmonary effort is normal. No respiratory distress. Breath sounds: Decreased air movement present. No wheezing, rhonchi or rales. Comments: Frequent dry cough, difficulty taking a deep breath without coughing. Lymphadenopathy: Cervical: No cervical adenopathy. Skin: General: Skin is warm and dry. Neurological: General: No focal deficit present. Mental Status: She is alert and oriented to person, place, and time. Psychiatric: Mood and Affect: Mood normal. Behavior: Behavior normal. Assessment/Plan Diagnoses and all orders for this visit: Acute non-recurrent pansinusitis - amoxicillin-clavulanate (Augmentin) 875-125 MG tablet; Take 1 tablet (875 mg) by mouth in the morning and 1 tablet (875 mg) in the evening. Take with meals. Do all this for 7 days. Start the above as directed. Reviewed potential s/e with patient. Encouraged probiotic while on antibiotic. Increase water intake, get plenty of rest. Can take OTC Tylenol prn. Follow up if no improvement in one week. Acute bronchitis, unspecified organism - guaiFENesin-codeine (Robitussin-AC) 100-10 MG/5ML syrup; Take 10 mL by mouth every 6 (six) hours if needed for cough for up to 7 days O[facility] report generated and reviewed. Can take the above as needed for cough. Reminded pt that it can cause drowsiness. Follow up with SARITA Thompson in 3 months (on 06/02/2025 Medicare Wellness Visit). documented in this encounter Plan of Treatment Not on file documented as of this encounter Visit Diagnoses Diagnosis Acute non-recurrent pansinusitis- Primary Acute bronchitis, unspecified organism documented in this encounter Additional Health Concerns AssessmentNoted TimePHQ-9 Depression Total Score: 12:00 PM EST documented as of this encounter Care Teams Team MemberRelationshipSpecialtyStart DateEnd Date Ramon Carroll MD [address] [facility] [address] [place] [address] PCP - Amy FERREIRA04/08/21 Ramon Carroll MD [address] [facility] [address] [place] [address] PCP - GeneralInternal Medicine08/06/22documented as of this encounter
--- OUTSIDE RECORDS SUMMARY | 2025-03-21 06:45 | XMS_ITS | Clinical Summary ---
Author Organization [facility] Healthcare Address [address] [place] [address] Care Team Providers Care Survey Technologist Name Role Phone Ramon Carroll MD Unavailable [phone] Ramon Carroll MD Primary Care Provider [phone] Allergies No known active allergies Medications MedicationSigDispense [...] (106 Fe) MG tablet Daily08/30/2023ctive nystatin (Mycostatin) 232009 UNIT/ML suspension Indications:Thrush, oralSWISH AND SWALLOW 5 [...] mouth in the morning. 90 tablet 5Active amoxicillin-clavulanate (Augmentin) 875-125 MG tablet Indications:Acute non-recurrent pansinusitisTake 1 tablet (875 mg) by mouth in the morning and 1 tablet (875 mg) in the evening. Take with meals. Do all this for 7 days. 14 tablet 5Active guaiFENesin-codeine (Robitussin-AC) 100-10 MG/5ML syrup Indications:Acute bronchitis, unspecified organismTake 10 mL by mouth every 6 (six) hours if needed for cough for up to 7 days 280 mL 5Active Active Problems ProblemNoted DateDiagnosed MgioPcnxkpcruytwrujos20/04/2025Hypomagnesemia 06/01/20241026Wjswddjwfcgpfelkof02/04/5417Hvlusnzndeev78/04/2024KD (polycystic kidney disease)09/02/2023Generalized anxiety bxowtjqo71/07/2023urrent moderate episode of major depressive disorder without prior iqkucdy2903/06/2023Estrogen aijuskmpmc52/02/2023Joint contracture of foot, unspecified jupkixucyv80/01/2023 Elevated alkaline phosphatase level01/29/2023bnormal complete blood count 01/29/2023Renal transplant hcddunduw98/01/2023 Resolved Problems ProblemNoted DateDiagnosed DateResolved DateThrush, oral/06/2024 Mmvacfyzqjk03Sinusitis Encounters DateTypeDepartmentCare IzsoUnibrtynxrd60/15/2025 1:30 PM ESTOffice Visit [facility] [address] [facility] [address] [place] [address] Ester Green, PA Acute non-recurrent pansinusitis (Primary Dx); Acute bronchitis, unspecified pgxqmnot36/15/2025amboo flowsheet [facility] [address] [place] [address] Ester Green PA 03/14/20252629Fuasct17/21/2025linisync Result Encounter NOMS External Department Unsolicited Provider, Generic External Data 01/17/2025linisync Result Encounter NOMS External Department Unsolicited Provider, Generic External Data 12/20/2024linisync Result Encounter NOMS External Department Unsolicited Provider, Generic External Data from Last 3 Months Immunizations ImmunizationAdministration DatesNext DueInfluenza, High Dose Seasonal, Preservative Free02/17/2025Influenza, Injectable, MDCK, preservative free 02/19/2024Influenza, Seasonal, Quadrivalent, Efvsdujtza71/13/2023Influenza, Xgsjumigqvc49/17/2009Influenza, injectable, MDCK, preservative free, hpwmtdztxenu29/22/2022Influenza, injectable, ithkfowzxilz90/28/2019,01/21/2018 Influenza, injectable, quadrivalent, preservative free12/12/2019,12/29/2017, 12/20/2016,01/16/2015Influenza, seasonal, hpmnlwdbwa43/12/2021Influenza, seasonal, intradermal, preservative free12/02/20162941DZQC-RUW-4 (COVID-19) vaccine, mRNA, spike protein, LNP, bivalent, PF02/19/2022Zoster, Dgnpsixmahz31/19/2023, 07/22/2022 Family History Medical HistoryRelationNameCommentsKidney failureBrotherHypertensionFather DiabetesMotherHeart diseaseMotherHypertensionMotherRelationNameStatusComments BrotherAliveFatherDeceasedMotherDeceased Social History Tobacco UseTypesPacks/DayYears UsedDateSmoking Tobacco: NeverSmokeless Tobacco: Never Tobacco Cessation:Counseling Given: Not Answered Alcohol UseStandard Drinks/WeekCommentsNever0 (1 standard drink = 0.6 oz pure alcohol)PHQ-2AnswerDate RecordedPatient Health Questionnaire-2 Reibo59005/15/2024 CommentsUnknownSex and Gender InformationValueDate RecordedSex Assigned at BirthNot on fileLegal VpvCdvnma42/15/2023 6:45 PM EDTGender IdentityNot on fileSexual OrientationNot on file Last Filed Vital Signs Vital SignReadingTime TakenCommentsBlood Oxsfztcx620/7803/14/2025 1:35 PM EST Zmiqe527103/14/2025 1:35 PM LRDRwjubnluwbj46.8 ??C (98.2 ??F)03/14/2025 1:35 PM ESTRespiratory Bqdm892005/15/2024 1:35 PM ESTOxygen Cufiodaesy40%03/14/2025 1:35 PM ESTInhaled Oxygen Concentration--Pqoaxr01.9 kg (125 lb 6.4 oz)03/14/2025 1:35 PM DRJFedntg180.4 cm (5')03/14/2025 1:35 PM ESTBody Mass Index24.4903/14/2025 1:35 PM EST Plan of Treatment Health MaintenanceDue DateLast DoneCommentsCT Cjihkdqurulq45/14/1956FIT 1955FOBT1955 8885Irukdsnnvesjo20/14/1957Pneumococcal Vaccine: 65+ Years (1 of 2 - PCV)11/12/1975COVID-19 Vaccine ( - season)2024 02/19/2022, 03/28/2021, 06/07/20205605Cfldcqxif63, 07/23/2022, 04/02/2021, Additional history existsMedicare Annual Wellness (AWV)06/01/2025 06/01/2024, 04/02/2023, 01/30/2023FIT-DNAolonoscopy Colorectal Cancer Nthshacdz96/30/2028Influenza Vaccine Ddlwkrofz19/20/2025, 02/19/2024, 01/10/2023, Additional history exists Procedures Procedure NamePriorityDate/TimeAssociated DiagnosisCommentsTACROLIMUS (FK506), YFDECMvtzahc57/21/2025 6:52 AM EST BKV QUANT LMFDubjyec51/21/2025 6:52 AM EST ALL CBC WITH AUTO JOLDLbvibik89/21/2025 6:52 AM EST ALL LIPID PROFILE (FASTING)Wwbonrp8302/18/2025 6:52 AM EST METRO BILIRUBIN, GHFWNOHvjhqxr97/21/2025 6:52 AM EST ALL FONOXVNKGChvtnvh56/21/2025 6:52 AM EST ALL KESVFMOGEDYUqwmaun29/21/2025 6:52 AM EST ALL URIC KZIINtyynhh38/21/2025 6:52 AM EST CCF CMP (CMP) (FOR REMOTE [facility] USE)Vesgfwj1002/18/2025 6:52 AM EST MLR HEMOGLOBIN Q1DQffkjub57/21/2025 6:52 AM EST TACROLIMUS (FK506), LFONTDwsldks86/20/2025 6:53 AM EDT METRO BILIRUBIN, XXQMWLBijiewh26/20/2025 6:53 AM EDT ALL OSQRIYJMRRtgibdw54/20/2025 6:53 AM EDT ALL ZYFBICYVCDHShnnfii81/20/2025 6:53 AM EDT ALL URIC YUXZSoleubq12/20/2025 6:53 AM EDT CCF CMP (CMP) (FOR REMOTE [facility] USE)Ufjfgsj4801/17/2025 6:53 AM EDT ALL CBC WITH AUTO FQSIWjfmspd79/20/2025 6:53 AM EDT TACROLIMUS (FK506), ODTBVWhkqpdv74/22/2025 7:00 AM EDT METRO BILIRUBIN, CPLOWTWboybkz57/22/2025 7:00 AM EDT ALL GTBNTLPIRSxwvrsm89/22/2025 7:00 AM EDT ALL KVGPBUIENVDQiodqut74/22/2025 7:00 AM EDT ALL URIC CGMWDvxktbj25/22/2025 7:00 AM EDT [facility]CF CMP (CMP) (FOR REMOTE [facility] USE)Tigvktm0512/20/2024 7:00 AM EDT MLR HEMOGLOBIN I4ZAvspxrl14/22/2025 7:00 AM EDT ALL CBC WITH AUTO MRCLCteakyk93/22/2025 7:00 AM EDT MM TOMOSYNTHESIS SCREENING BI02/11/2024 9:08 AM EST LAB COLOGUARD?? COLON CANCER UYJOGXSbloixo37/17/2023 1:15 PM EST Screening for colorectal cancer from Last 3 Months or Most Recently Relevant to Health Maintenance Results * BKV QUANT PCR (02/18/2025 6:52 AM EST)ComponentValueRef RangeTest Method Analysis TimePerformed AtPathologist SignatureBKV DNA, QUANT PCR, PLASMA NegativeNegative IU/mLTBHComment: No BK DNA detected. The linear range of the assay is 22 - 100,000,000 IU/mL. Performed at: ?? - [facility] [address] ??[id number] Hr Administrator: Real Chaparro PhD, Phone: ??[phone] LOG10 BKV DNA,PLASMATNP.TBHSpecimen (Source)Anatomical Location / Laterality Collection Method / VolumeCollection TimeReceived Time02/18/2025 6:52 AM EST 02/18/2025 6:54 AM EST Narrative CLINISYNC - 02/19/2025 2:08 PM EST Authorizing ProviderResult TypeResult StatusGeneric External Data ProviderLAB BLOOD ORDERABLESFinal ResultPerforming OrganizationAddressCity/State/ZIP Code Phone Number [facility] * (ABNORMAL) TACROLIMUS (FK506), BLOOD (02/18/2025 6:52 AM EST) Only the most recent of3 resultswithin the time period is included. ComponentValueRef RangeTest MethodAnalysis TimePerformed AtPathologist Signature TACROLIMUS (FK506), BLOOD4.7(A)5.0 - 20.0 ng/mLTBHComment: This test was developed and its performance characteristics determined by [employer]. It has not been cleared or approved [...] ng/mL Performed by LC-MS/MS technology. Performed at: ??[address] ??[id number] Hr Administrator: Marizol Singleton MD, Phone: ??[phone] Specimen (Source)Anatomical Location / LateralityCollection Method / Volume Collection TimeReceived Time02/18/2025 6:52 AM EST02/18/2025 6:54 AM EST Narrative CLINISYNC - 02/21/2025 6:07 AM EST Authorizing ProviderResult TypeResult StatusGeneric External Data ProviderLAB BLOOD ORDERABLESFinal ResultPerforming OrganizationAddressCity/State/ZIP Code Phone Number [facility] * MLR HEMOGLOBIN A1C (02/18/2025 6:52 AM EST) Only the most recent of2 resultswithin the time period is included. ComponentValueRef RangeTest MethodAnalysis TimePerformed AtPathologist Signature GLYCOHEMOGLOBIN A1C5.34.5 - 6.2 %TBHComment: ADA RECOMMENDED LIMIT 4.0 - 6.0 ADA THERAPEUTIC TARGET < 7.0 ACTION SUGGESTED > 7.0 ESTIMATED AVERAGE WSMRPTN414kx/dLTBHSpecimen (Source)Anatomical Location / LateralityCollection Method / VolumeCollection TimeReceived Time02/18/2025 6:52 AM EST02/18/2025 6:54 AM EST Narrative CLINISYNC - 02/18/2025 7:47 AM EST Authorizing ProviderResult TypeResult StatusGeneric External Data Provider CLINISYNCFinal ResultPerforming OrganizationAddressty/State/ZIP CodePhone Number [facility] * METRO BILIRUBIN, DIRECT (02/18/2025 6:52 AM EST) Only the most recent of3 resultswithin the time period is included. ComponentValueRef RangeTest MethodAnalysis TimePerformed AtPathologist Signature BILIRUBIN DIRECT0.20.0 - 0.2 mg/dLTBHSpecimen (Source)Anatomical Location / LateralityCollection Method / VolumeCollection TimeReceived Time02/18/2025 6:52 AM EST02/18/2025 6:54 AM EST Narrative CLINISYNC - 02/18/2025 7:48 AM EST Authorizing ProviderResult TypeResult StatusGeneric External Data Provider CLINISYNCFinal ResultPerforming OrganizationAddressCity/State/ZIP CodePhone Number [facility] * (ABNORMAL) CCF CMP (CMP) (FOR REMOTE [facility] USE) (02/18/2025 6:52 AM EST) Only the most recent of3 resultswithin the time period is included. ComponentValueRef RangeTest MethodAnalysis TimePerformed AtPathologist Signature TETKDO352435 - 145 mmol/LTBHPOTASSIUM4.43.5 - 5.1 mmol/QHRKAZGAFPVN84322 - 107 mmol/LTBHCARBON IVIIJVP02.621.0 - 32.0 mmol/LTBHANION GAP9.9UVFXKPZYJB4630 - 106 mg/dLTBHBLOOD UREA JGFWNISH70.07.0 - 18.0 mg/dLTBHCREATININE0.950.55 - 1.02 mg/dLTBHTBH EGFR-AF [place]UR[place] AND [place]>60>=60 mL/min/1.73m 2TBHTBH EGFR-NON AF WIHSINWB38 (L)>=60 mL/min/1.73m 2TBHBUN CREATININE RATIO18.7UNCEXQECCC6.08.5 - 10.1 mg/dL TBHBILIRUBIN TOTAL0.80.2 - 1.0 mg/dLTBHASPARTATE AMINO URUEPHINDRB0374 - 37 U/L TBHALANINE GNRDBRMJCNMKDJKV4436 - 59 U/LTBHALKALINE UXIDOPCVDML278(H)46 - 116 U/LTBHTOTAL PROTEIN6.86.4 - 8.2 g/dLTBHALBUMIN LEVEL3.63.4 - 5.0 g/dLTBHGLOBULIN 3.2g/dLTBHALBUMIN GLOBULIN RATIO1.1TBHSpecimen (Source)Anatomical Location / LateralityCollection Method / VolumeCollection TimeReceived Time02/18/2025 6:52 AM EST02/18/2025 6:54 AM EST Narrative CLINISYNC - 02/18/2025 7:48 AM EST Authorizing ProviderResult TypeResult StatusGeneric External Data Provider CLINISYNCFinal ResultPerforming OrganizationAddSurgical [facility]/ZIP CodePhone Number [facility] * ALL URIC ACID (02/18/2025 6:52 AM EST) Only the most recent of3 resultswithin the time period is included. ComponentValueRef RangeTest MethodAnalysis TimePerformed AtPathologist Signature URIC ACID4.72.6 - 6.0 mg/dLTBHSpecimen (Source)Anatomical Location / Laterality Collection Method / VolumeCollection TimeReceived Time02/18/2025 6:52 AM EST 02/18/2025 6:54 AM EST Narrative CLINISYNC - 02/18/2025 7:48 AM EST Authorizing ProviderResult TypeResult StatusGeneric External Data Provider CLINISYNCFinal ResultPerforming OrganizationAddSurgical Specialty [facility]/State/ZIP CodePhone Number [facility] * ALL PHOSPHOROUS (02/18/2025 6:52 AM EST) Only the most recent of3 resultswithin the time period is included. ComponentValueRef RangeTest MethodAnalysis TimePerformed AtPathologist Signature PHOSPHORUS3.42.6 - 4.7 mg/dLTBHSpecimen (Source)Anatomical Location / Laterality Collection Method / VolumeCollection TimeReceived Time02/18/2025 6:52 AM EST 02/18/2025 6:54 AM EST Narrative CLINISYNC - 02/18/2025 7:48 AM EST Authorizing ProviderResult TypeResult StatusGeneric External Data Provider CLINISYNCFinal ResultPerforming OrganizationAddressty/State/ZIP CodePhone Number [facility] * ALL MAGNESIUM (02/18/2025 6:52 AM EST) Only the most recent of3 resultswithin the time period is included. ComponentValueRef RangeTest MethodAnalysis TimePerformed AtPathologist Signature MAGNESIUM1.81.8 - 2.4 mg/dLTBHSpecimen (Source)Anatomical Location / Laterality Collection Method / VolumeCollection TimeReceived Time02/18/2025 6:52 AM EST 02/18/2025 6:54 AM EST Narrative CLINISYNC - 02/18/2025 7:48 AM EST Authorizing ProviderResult TypeResult StatusGeneric External Data Provider CLINISYNCFinal ResultPerforming OrganizationAddressty/State/ZIP CodePhone Number [facility] * ALL LIPID PROFILE (FASTING) (02/18/2025 6:52 AM EST)ComponentValueRef Range Test MethodAnalysis TimePerformed AtPathologist PqvdjdbmsDTSENIDCCATXG95<=150 mg/gRLITZDMIXOULQKX597<=200 mg/dLTBHHDL ITUMELRPKTK0153 - 60 mg/dLTBHComment: > or =60 mg/dl - LOW CARDIOVASCULAR RISK <40 mg/dl - HIGH CARDIOVASCULAR RISK LDL CHOLESTEROL MVYWHMRQOS73.4mg/dLTBHComment: <100 mg/dl OPTIMAL 100-129 mg/dl NEAR OR ABOVE OPTIMAL 130-159 mg/dl BORDERLINE HIGH 160-189 mg/dl HIGH >190 mg/dl VERY HIGH VLDL OCUMDAWHLAL79.6mg/dLTBHCHOL HDL RATIO2.7TBHComment: 3.3 - 4.4 ?? LOW RISK 4.4 - 7.1 ?? AVERAGE RISK 7.1 - 11.0 ??MODERATE RISK >11.0 HIGH RISK Specimen (Source)Anatomical Location / LateralityCollection Method / Volume Collection TimeReceived Time02/18/2025 6:52 AM EST02/18/2025 6:54 AM EST Narrative CLINISYNC - 02/18/2025 7:48 AM EST Authorizing ProviderResult TypeResult StatusGeneric External Data Provider CLINISYNCFinal ResultPerforming OrganizationAddressCity/State/ZIP CodePhone Number CLINISYNC TB * (ABNORMAL) ALL CBC WITH AUTO DIFF (02/18/2025 6:52 AM EST) Only the most recent of3 resultswithin the time period is included. ComponentValueRef RangeTest MethodAnalysis TimePerformed AtPathologist Signature TB WBC7.24.0 - 11.0 10 3/uLTBHTBH RBC4.644.20 - 5.40 10 6/uLTBHTBH HGB14.312.0 - 16.0 g/dLTBHTBH HCT44.536.0 - 48.0 %TBHTBH MCV95.981.0 - 99.0 fLTBHTBH MCH30.8 26.7 - 34.0 pgTBHTBH MCHC32.129.9 - 35.2 g/dLTBHTBH RDW14.411.0 - 15.0 %TBHTBH MHV155006 - 450 10 3/uLTBHTBH MPV10.69.5 - 13.5 fLTBHNEUTROPHILS PERCENT AUTO 75.7(H)43.0 - 75.0 %TBHLYMPHOCYTES PERCENT AUTO10.4(L)20.5 - 60.0 %TBHMONOCYTES PERCENT AUTO11.51.7 - 12.0 %TBHTBH EO %2.20.9 - 7.0 %TBHBASOPHILS PERCENT AUTO 0.1(L)0.2 - 2.0 %TBHIMMATURE GRANULOCYTES PCT AUTO0.10.0 - 0.5 %TBHNEUTROPHILS ABSOLUTE AUTO5.51.4 - 6.5 10 3/uLTBHLYMPHOCYTES ABSOLUTE AUTO0.8(L)1.2 - 3.8 10 3/uLTBHMONOCYTES ABSOLUTE AUTO0.80.3 - 0.8 10 3/uLTBHTBH EO #0.20.0 - 0.7 10 3/uLTBHBASOPHILS ABSOLUTE AUTO0.00.0 - 0.1 10 3/uLTBHIMMATURE GRANULOCYTES ABS AUTO0.010.00 - 0.03 10 3/uLTBHSpecimen (Source)Anatomical Location / Laterality Collection Method / VolumeCollection TimeReceived Time02/18/2025 6:52 AM EST 02/18/2025 6:54 AM EST Narrative CLINISYNC - 02/18/2025 7:48 AM EST Authorizing ProviderResult TypeResult StatusGeneric External Data Provider CLINISYNCFinal ResultPerforming OrganizationAddressCity/State/ZIP CodePhone Number CLINISYNC TBH * MM TOMOSYNTHESIS SCREENING BI (02/11/2024 9:08 AM EST)Anatomical Region LateralityModalityOtherSpecimen (Source)Anatomical Location / Laterality Collection Method / VolumeCollection TimeReceived Time02/11/2024 9:08 AM EST Narrative 02/11/2024 9:09 AM EST [facility] ?[address] ? [place] [address] ? Mammography Report ? Signed ? Patient: SIRISHA,TANIKA L ?MR#: [id number] ?? : 1955 ?Acct:[id number] ?? Age/Sex: 68 / F ?ADM Date: 02/10/ ?? Loc: MAMMO ? Attending Dr: RAMON CARROLL ? Ordering Physician: RAMON CARROLL ? Results: ? Date of Service: 02/11/24 ?Follow Up: ? Procedure(s): MM tomosynthesis screening BI ?? Accession Number(s): [id number] ? cc: RAMON CARROLL ? Patient Name: ? TANIKA JENKINS ? MR#: [id number] ? : 1955 ? Exam Date: 02/11/2024 [...] Cancers ? None ? LOCATION: ? [facility] ? BREAST COMPOSITION: ? The [...] on 02/11/2024 at 09:08 ? Dictated By: ?West,Glenroy V M.D. ? Signed By: ?02/11/24 0909 ? DD/ 0908 ? TD/TT: ? Associate Director Of Sales: Procedure Note Radiology, Radiologist, MD - 02/11/2024 [place] [address] Mammography Report Signed Patient: TANIKA JENKINS LMR#: [id number] : 7Acct:[id number] Age/Sex: 68 / FADM Date: 02/11/24 Loc: MAMMO Attending Dr: RAMON CARROLL Ordering Physician: David CARROLLults: Date of Service: 02/11/24Follow Up: Procedure(s): MM tomosynthesis screening BI Accession Number(s): [id number] cc: UZMARAMON Patient Name: TANIKA JENKINS MR#: [id number] : 1955 Exam Date: 02/11/2024 Ordering Doctor: [...] Treatments None Family Cancers None LOCATION: [facility] BREAST COMPOSITION: The breasts are [...] Bass M.D. Signed By:02/11/24908 DD/ 7 TD/TT: Associate Director Of Sales: Authorizing ProviderResult TypeResult StatusDanililli Carroll MDCLINISYNC IMAGING Final Result * Cologuard?? colon cancer screening (02/14/2023 1:15 PM EST)ComponentValueRef RangeTest MethodAnalysis TimePerformed AtPathologist SignatureNONINV COLON CA DNA+OCC BLD SCRN STL-VMYGxqubnmxEecajqpx53/27/2023 5:35 PM [employer] (CLIA #:[id number])Comment: NEGATIVE TEST RESULT. A negative Cologuard result [...] (Jhon Corado al, N Engl J Med 2014;370(14):0661-4475) The normal value (reference range) for this assay is negative. COLOGUARD RE-SCREENING RECOMMENDATION: Periodic colorectal cancer screening is an important part ofpreventive healthcare for asymptomatic individuals at average risk for colorectal cancer. ??Following a negative Cologuard result, the [place] [employer] and U.S. Multi-Society Task Force screening guidelines recommend a Cologuard re-screening interval of 3 years. References: [place] [employer] Guideline for Colorectal Cancer Screening: https://www.cancer.or g/cancer/rzcpd-scdyjw-yutrid/rzughjpzg-mgaakkxdm-vvcimpo/acs-recommendations.htm l.; Vinnie DK, David ABREU, Robert ReisK, Colorectal Cancer Screening: Recommendations for Physicians and Patients from the U.S. Multi-Society Task Force on Colorectal Cancer Screening , Am J Gastroenterology 2017; 112:1059-1848. TEST DESCRIPTION: Composite algorithmic analysis of stool [...] (Jhon Corado al, N Engl J Med 2014;370(14):5997-9526.) Cologuard may produce a false negative or [...] can be accessed at the following location: www.Trendr.Rally.org/results. Additional description of the Cologuard test process, warnings and precautions can be found at www.HomeConoguard.com. Specimen (Source)Anatomical Location / LateralityCollection Method / Volume Collection TimeReceived TimeStool specimen (specimen)02/14/2023 1:15 PM EST 02/15/2023 5:51 PM EST Narrative Authorizing ProviderResult TypeResult StatusDanililli [facility] ORDERABLESFinal ResultPerforming OrganizationAddressCity/State/ZIP CodePhone Number [employer] (CLIA #:[id number]) [address] [place] [address], [place] [phone] [facility] (CLIA #:[id number]) [address] [place] [address] from Last 3 Months or Most Recently Relevant to Health Maintenance Insurance * Guarantor: Kiet Jenkins TypeRelation to PatientDate of BirthPhone Billing AddressPersonal/LnjoxzMggw15/14/1956 [facility] [address] [address] Care Teams Team MemberRelationshipSpecialtyStart DateEnd Date Ramon Carroll MD [address] [facility] [address] [place] [address] PCP - [place] MA04/08/21 Ramon Carroll MD [address] [facility] [address] [place] [address] PCP - [facility] Hospitalnal Medicine08/06/22
--- OUTSIDE RECORDS SUMMARY | 2025-03-21 06:45 | XMS_ITS | Encounter Summary ---
Author Organization [facility] Address [address] [place] [address] Care Team Providers Care Eligibility Counselor Name Role Phone Ramon Carroll MD Unavailable [phone] Ramon Carroll MD Primary Care Provider [phone] Encounter Details DateTypeDepartmentCare Team (Latest Contact Info)Abohceznbjq33/15/2025Travel Social History Tobacco UseTypesPacks/DayYears UsedDateSmoking Tobacco: NeverSmokeless Tobacco: NeverAlcohol UseStandard Drinks/WeekCommentsNever0 (1 standard drink = 0.6 oz pure alcohol)PHQ-2AnswerDate RecordedPatient Health Questionnaire-2 Score0 03/14/2025CommentsUnknownSex and Gender InformationValueDate RecordedSex Assigned at BirthNot on fileLegal MgxIodwst00/15/2023 6:45 PM EDTGender Identity Not on fileSexual OrientationNot on filedocumented as of this encounter Plan of Treatment Not on file documented as of this encounter Visit Diagnoses Not on filedocumented in this encounter Additional Health Concerns AssessmentNoted TimePHQ-9 Depression Total Score: 12:00 PM EST documented as of this encounter Care Teams Team MemberRelationshipSpecialtyStart DateEnd Date Ramon Carroll MD [address] [place] [address] [place] [address] PCP - Amy DC04/08/21 Ramon Carroll MD [address] [place] [address] [place] [address] PCP - GeneralInternal Medicine08/06/22documented as of this encounter
--- OUTSIDE RECORDS SUMMARY | 2025-03-21 06:45 | XMS_ITS | Encounter Summary ---
Author Organization [facility] Address [address] [place] [address] Care Team Providers Care Bleacher [employer] Name Role Phone Ramon Carroll MD Unavailable [phone] Ramon Carroll MD Primary Care Provider [phone] Encounter Details DateTypeDepartmentCare Team (Latest Contact Info)Mjrrncibapz05/15/2025amboo flowsheet [facility] [address] [place] [address] [place] [id number] Ester Green PA [address] [place] [address] [place] [address] Social History Tobacco UseTypesPacks/DayYears UsedDateSmoking Tobacco: NeverSmokeless Tobacco: NeverAlcohol UseStandard Drinks/WeekCommentsNever0 (1 standard drink = 0.6 oz pure alcohol)PHQ-2AnswerDate RecordedPatient Health Questionnaire-2 Score0 03/14/2025CommentsUnknownSex and Gender InformationValueDate RecordedSex Assigned at BirthNot on fileLegal YmgEwmzam14/15/2023 6:45 PM EDTGender Identity Not on fileSexual OrientationNot on filedocumented as of this encounter Plan of Treatment Not on file documented as of this encounter Visit Diagnoses Not on filedocumented in this encounter Additional Health Concerns AssessmentNoted TimePHQ-9 Depression Total Score: 12:00 PM EST documented as of this encounter Care Teams Team MemberRelationshipSpecialtyStart DateEnd Date Ramon Carroll MD [address] [facility] [address] [place] [address] PCP - Amy FERREIRA04/08/21 Ramon Carroll MD [address] [facility] [address] [place] [address] PCP - GeneralInternal Medicine08/06/22documented as of this encounter
--- OUTSIDE RECORDS SUMMARY | 2025-03-21 06:45 | XMS_ITS | Clinical Summary ---
Author Organization [facility] Address [address] [place] [address] Care Team Providers Care Cryptozoologist Name Role Phone Ramon Carroll MD Primary Care Provider [phone] Virgil Haynes CNP Unavailable [phone] Allergies No known active allergies Medications MedicationSigDispense [...] Problems No known active problems Encounters DateTypeDepartmentCare UtgfTahygjubpkb96/13/2025Refill [facility] Transplant [address] [address] Leah Salinas MA History of kidney transplantfrom Last 3 Months Family History RelationNameStatusCommentsFatherDeceasedMotherDeceased Social History Tobacco UseTypesPacks/DayYears UsedDateSmoking Tobacco: NeverSmokeless Tobacco: Never Tobacco Cessation:Counseling Given: Not Answered Alcohol UseStandard Drinks/WeekCommentsNever0 (1 standard drink = 0.6 oz pure alcohol)PHQ-2AnswerDate RecordedPatient Health Questionnaire-2 [address] [place] Safety & EnvironmentAnswerDate RecordedFear of Current or Ex-PartnerNot on file05/22/2023Emotionally AbusedNot on file05/22/2023hysically AbusedNot on file05/22/2023Sexually AbusedNot on file05/22/2023hysically or Sexually Abused Not on file05/22/2023CommentsNoSex and Gender InformationValueDate RecordedSex Assigned at BirthNot on fileLegal SmzNyyqjv71/29/2022 10:39 PM EDT Gender IdentityNot on fileSexual OrientationNot on file Last Filed Vital Signs Vital SignReadingTime TakenCommentsBlood Sjcwudtq839/77009/29/2024 8:34 AM EDT Ilteq3034/02/2025 8:34 AM WMCLiynvmkkcwg28.4 ??C (97.5 ??F)04/01/2024 8:54 AM ESTRespiratory Ciql773409/29/2024 8:34 AM EDTOxygen Qeubomrlmj30%09/29/2024 8:34 AM EDTInhaled Oxygen Concentration--Pazenp70.2 kg (126 lb)09/29/2024 8:34 AM EDT Xfxnqo181.4 cm (5')09/29/2024 8:34 AM EDTBody Mass Index24.61009/29/2024 8:34 AM EDT Plan of Treatment DateTypeDepartmentCare Team (Latest Contact Info)Tyxywfyrbyp75/07/2026 9:30 AM ESTFollow-Up [facility] Transplant [address] [place] [id number] Savzyan, Alfredo, HAND 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 [address] [place] [address] Health MaintenanceDue DateLast DoneCommentsCT Fdzbbbtcjxnp42/14/1957Colonoscopy 1956FOBT1956Medicare Annual Wellness (AWV)1956Sigmoidoscopy 1956Pneumococcal Vaccine: 50+ Years (1 of 2 - PCV)11/12/1975Adult Tetanus 1978FITMammogramOVID-19 Vaccine ( - 2024- season), 03/28/2021, 06/07/2020Influenza Vaccine (#1)/, 01/10/2023, 02/19/2022, Additional history existsDepression Waoaibhmt97Fall Risk Embdtvufp44/02/2026 09/29/2024olorectal Cancer Sylrfyzcu84/17/2026FIT-DNAZoster UvibgwddJdedbukae30/19/2023, 07/22/2022HIB VaccinesAged OutNo longer eligible based on [...] Team MemberRelationshipSpecialtyStart DateEnd Ramon Carroll MD [address] [facility] [address] [place] [address] PCP - Kmqxurp32/22/22 Virgil Haynes CNP [address] [facility] [address] [place] [address] Nurse AdcsldcbgdvrOqyrmap85/20/22
[2025-03-21 07:20] LABS: Hematocrit 44.0 % (36.0-48.0); Hemoglobin 14.5 g/dL (12.0-16.0); Immature Granulocytes Abs Auto 0.02 10^3/uL (0.00-0.03); Immature Granulocytes Pct Auto 0.2 % (0.0-0.5); Lymphocytes Absolute Auto 1.3 10^3/uL (1.2-3.8); Mean Corpuscular HGB Conc 33.0 g/dL (29.9-35.2); Mean Corpuscular Hemoglobin 31.2 pg (26.7-34.0); Mean Corpuscular Volume 94.6 fL (81.0-99.0); Platelet Count 201 10^3/uL (150-450); Red Blood Count 4.65 10^6/uL (4.20-5.40); White Blood Count 9.9 10^3/uL (4.0-11.0)
[2025-03-21 07:56] LABS: Alanine Aminotransferase 18 U/L (14-59); Albumin Globulin Ratio 1.0; Albumin Level 3.5 g/dL (3.4-5.0); Alkaline Phosphatase 187 U/L (46-116); Anion Gap 12.4; Aspartate Amino Transferase 13 U/L (15-37); Blood Urea Nitrogen 14.0 mg/dL (7.0-18.0); Calcium 9.2 mg/dL (8.5-10.1); Carbon Dioxide 29.7 mmol/L (21.0-32.0); Chloride 103 mmol/L (98-107); Estimated GFR (African America >60 (>=60 mL/min/1.73m^2); Estimated GFR (Non-African Ame >60 (>=60 mL/min/1.73m^2); Globulin 3.4 g/dL; Glucose 96 mg/dL (74-106); Magnesium 1.9 mg/dL (1.8-2.4); Potassium 4.1 mmol/L (3.5-5.1); Sodium 141 mmol/L (136-145); Total Protein 6.9 g/dL (6.4-8.2); Uric Acid 4.6 mg/dL (2.6-6.0)
[2025-03-24 01:07] LABS: Tacrolimus (FK506), Blood 4.4 ng/mL (5.0-20.0)
== END 2025-03-21 06:40 | disposition home or self-care (01) ==
LOC: LAB 06:41
PROVIDERS: PCP Internal Medicine; Visit Provider Nurse Practitioner Family
DX: R73.01 Impaired fasting glucose (principal); Z94.0 Kidney transplant status
CPT/HCPCS: 36415; 80053; 80197; 82248; 83735; 84100; 84550; 85025